=== PATIENT | male | born 1960 | race Caucasian/White ===

== ENCOUNTER 2023-04-28 12:29 | Outpatient (RCR) | payer MEDICARE, SELFPAY | END 2023-05-14 14:17 | disposition home or self-care (01) | LOC: ST 12:29 | DX: G20 Parkinson's disease (principal); R41.841 Cognitive communication deficit | CPT/HCPCS: 92507; 92523 ==

== ENCOUNTER 2023-04-28 12:30 | Outpatient (RCR) | payer MEDICARE, SELFPAY | END 2023-09-10 15:10 | disposition home or self-care (01) | LOC: PT 12:30 | DX: G20.A1 Parkinson's disease without dyskinesia, without mention of fluctuations (principal) | CPT/HCPCS: 97110; 97163; 97530 ==

== ENCOUNTER 2023-05-30 07:55 | Outpatient (RCR) | payer MEDICARE, SELFPAY ==
[2023-05-30 08:27] VITALS: BP 121/82; PULSE 64; RESP 16; TEMP 36.6; O2SAT 97
[2023-05-30] MEDS: CEFTAZIDIME 1,000 MG in 0.9 % SODIUM CHLORIDE 50 ML 50 MG IV (08:27)
[2023-05-30] MEDS: CEFTAZIDIME 1,000 MG in 0.9 % SODIUM CHLORIDE 50 ML 100 MG IV (20:23)
[2023-05-31] MEDS: CEFTAZIDIME 1,000 MG in 0.9 % SODIUM CHLORIDE 50 ML 100 MG IV (20:22)
[2023-05-31 20:23] VITALS: BP 103/78; PULSE 63; RESP 15; TEMP 36.6; O2SAT 97
== END 2023-06-18 23:59 | disposition home or self-care (01) ==
LOC: INF 07:55
PROVIDERS: PCP Family Medicine; Visit Provider Family Medicine
DX: N39.0 Urinary tract infection, site not specified (principal); B96.5 Pseudomonas (aeruginosa) (mallei) (pseudomallei) as the cause of diseases classified elsewhere
CPT/HCPCS: 96365; 96366

== ENCOUNTER 2023-06-01 20:00 | Outpatient (RCR) | payer MEDICARE, SELFPAY | END 2023-09-10 11:16 | disposition home or self-care (01) | LOC: OT 20:00 | DX: G20.A1 Parkinson's disease without dyskinesia, without mention of fluctuations (principal) | CPT/HCPCS: 97166; 97530 ==

== ENCOUNTER 2023-06-05 08:00 | Outpatient (RCR) | payer MEDICARE, SELFPAY ==
[2023-05-29 20:43] VITALS: BP 142/81; PULSE 60; RESP 16; TEMP 36.6; O2SAT 96
[2023-05-29] MEDS: CEFTAZIDIME 1,000 MG in 0.9 % SODIUM CHLORIDE 50 ML 100 MG IV (21:40)
[2023-05-29 22:50] VITALS: BP 164/88; PULSE 54; RESP 18; TEMP 37.1; O2SAT 95
[2023-05-31] MEDS: CEFTAZIDIME 1,000 MG in 0.9 % SODIUM CHLORIDE 50 ML 100 MG IV (08:13)
[2023-05-31 08:25] VITALS: BP 123/74; PULSE 65; RESP 18; TEMP 36.4; O2SAT 95
[2023-06-01 08:00] VITALS: BP 111/72; PULSE 66; RESP 14; TEMP 36.5; O2SAT 95
[2023-06-01] MEDS: CEFTAZIDIME 1,000 MG in 0.9 % SODIUM CHLORIDE 50 ML 5 MG IV (08:10)
--- NOTE | 2023-06-01 08:51 | PC.NURSE ---
0800 Arrived per electric wheelchair. Alert oriented no complaints offered. Saline lock intact left forearm #20 site clear, good blood return, flushes easily. IV antibiotics initiated. 0810 Tolerating infusion without difficulty. 0835 IV infusion complete, flushed line with NS, covered site for protection with coban. Released per electric wheelchair.
[2023-06-01] MEDS: CEFTAZIDIME 1,000 MG in 0.9 % SODIUM CHLORIDE 50 ML 100 MG IV (19:57)
[2023-06-01 20:02] VITALS: BP 135/83; PULSE 63; RESP 16; TEMP 36.5; O2SAT 96
[2023-06-02 08:06] VITALS: BP 120/77; PULSE 57; RESP 14; TEMP 35.6; O2SAT 98
[2023-06-02] MEDS: CEFTAZIDIME 1,000 MG in 0.9 % SODIUM CHLORIDE 50 ML 100 MG IV ×2 (08:14→20:08)
--- NOTE | 2023-06-02 08:50 | PC.NURSE ---
0800 Arrived per wheelchair. alert oriented. Saline lock intact site clear, flushes well, good blood return noted.0810 tolerating infusion without difficulty. 0845 infusion completed, tolerated well. flushed with NS, covered with coban released per wheelchair.
[2023-06-02 20:00] VITALS: BP 133/84; PULSE 62; RESP 18; TEMP 36.8; O2SAT 93
[2023-06-03 07:55] VITALS: BP 126/78; PULSE 64; RESP 18; TEMP 36.6; O2SAT 98
[2023-06-03] MEDS: CEFTAZIDIME 1,000 MG in 0.9 % SODIUM CHLORIDE 50 ML 100 MG IV ×2 (08:05→19:51)
--- NOTE | 2023-06-03 08:11 | PC.NURSE ---
0755: Pt. to [facility] via w/c per. self. VSS. Denies c/o n/v, pain or dyspnea. Pt. with existing IV to left forearm. No redness or edema to site. Flushes easily with good blood return. Pt. denies pain to site. IV Fortaz initiated as ordered. Pt. given coffee. Denies wanting to eat.
[2023-06-04 07:57] VITALS: BP 131/78; PULSE 70; RESP 18; TEMP 36.6; O2SAT 97
--- NOTE | 2023-06-04 07:57 | PC.NURSE ---
Pt. to [facility] via w/c per self. Vss. Denies c/o. Pt. with existing IV to left forearm. No redness or edema to site. Flushes easily with good blood return. Pt. denies pain to site. IV Fortaz initiated at this time. Pt. given coffee. Denies needs.
[2023-06-04] MEDS: CEFTAZIDIME 1,000 MG in 0.9 % SODIUM CHLORIDE 50 ML 100 MG IV ×2 (08:03→20:06)
--- NOTE | 2023-06-04 08:48 | PC.NURSE ---
0833: IV Fortaz completed without s&s of adverse reaction. IV flushed with saline & to SLF. Wrapped with Coban. Pt. tolerated without c/o. 0838: D/c'd via w/c to car and home with .
[2023-06-04 20:10] VITALS: BP 137/90; PULSE 57; RESP 18; TEMP 36.4; O2SAT 97
[2023-06-05 07:50] VITALS: BP 91/67; PULSE 73; RESP 18; TEMP 36.6; O2SAT 95
--- NOTE | 2023-06-05 07:50 | PC.NURSE ---
0750: Pt to [facility] via w/c for daily antibiotics. Pleasant. Denies c/o pain, n/v or dyspnea. Pt. with existing IV to left forearm. Flushes easily without s&s of infiltration or infection. VSS. 0800: IV Fortaz initiated. Pt. given breakfast. Denies needs. 0833: IV Fortaz completed without s&s of adverse reaction. IV d/c'd, pressure to site. 0837: Pt. d/c'd via w/c to home with .
[2023-06-05] MEDS: CEFTAZIDIME 1,000 MG in 0.9 % SODIUM CHLORIDE 50 ML 100 MG IV (08:00)
== END 2023-06-18 23:59 | disposition home or self-care (01) ==
LOC: INF 08:00
PROVIDERS: PCP Family Medicine; Visit Provider Urology
DX: N39.0 Urinary tract infection, site not specified (principal); B96.5 Pseudomonas (aeruginosa) (mallei) (pseudomallei) as the cause of diseases classified elsewhere
CPT/HCPCS: 87086; 87150; 87186; 96365; 96366

== ENCOUNTER 2023-07-06 07:43 | Outpatient (RCR) | payer OTHER, SELFPAY ==
[2023-06-30 13:14] LABS: Estimated GFR (African America >60 (>=60); Estimated GFR (Non-African Ame >60 (>=60)
--- NOTE | 2023-06-30 14:55 | PC.NURSE ---
1245: Pt. to [facility] via w/c per self. Pt. gives stated weight, called to pharmacy. VSS. Labs ordered per. pharmacy for kidney function. Pt. denies c/o pain, n/v or dyspnea. 1250: Pharmacy called and notified this RN pt. will need 4 injections due to volume of medication ordered. Suggests to be given IV. 1252: Dr. Ibarra office called. Informed of multiple injections needed daily. Order given to change route to IV. Pharmacy notified.
--- NOTE | 2023-06-30 15:09 | PC.NURSE ---
1336: IV Gentamycin initiated at this time. Pt. drinking coffee. Denies needs. 1406: IV Gent completed. IV to SLF. Pt. tolerated without c/o. IV site wrapped in coban dressing. Pt. d/c'd via w/c to home per self.
[2023-07-01 10:50] VITALS: BP 94/64; PULSE 69; RESP 18; TEMP 36.4; O2SAT 98
--- NOTE | 2023-07-01 11:29 | PC.NURSE ---
1050 arrived per electric wheelchair to chair 1. alert oriented. IV (SLF) intaact left forearm. site clear. 1120 Arrangements made for patient to come back at 7pm for random gent draw. Patient verbalizes understanding of orders.
--- NOTE | 2023-07-01 13:54 | PC.NURSE ---
1240 infusion completed. IV saline locked secured with coban. Released per wheelchair with instructions to return to ER at 1900 for lab draw.
--- NOTE | 2023-07-02 08:58 | PC.NURSE ---
0840 port flushed with NSS and heplock solution and deaccessed. patient tolerated procedure well, Site covered with 2x2 and tape, pressure applied for several minutes. no bleeding noted. Released ambualtory
--- NOTE | 2023-07-02 09:47 | PC.NURSE ---
misentry entered on wrong chart
[2023-07-02 11:20] VITALS: BP 142/93; PULSE 58; RESP 16; TEMP 36.4; O2SAT 98
--- NOTE | 2023-07-02 14:06 | PC.NURSE ---
1120 Arrived per electric w/c to chair 1. Pharmacy notified of patient arrival. Pharmacy calling to check on random gent level from 1900 on 07/01. 1140 Pharmacy called, will be giving normal dose today, none on 07/03, dosing on 07/04, none on 07/05 and last dose on 07/06. Patient aware of this schedule and reasoning. IV site stinging when flushing (left forearm IV site). Restarated on 1st attempt with #22 rt forearm, tolerated well. 1200 IV gentamycin initiated. 1230 Gentamycin infused, saline flushed IV site, secured with coban. released per electric wheel chair.
--- NOTE | 2023-07-04 11:54 | PC.NURSE ---
patient tolerated IV therapy well. Patient has no further questions. patient discharged at this time
[2023-07-06 11:05] VITALS: BP 123/74; PULSE 69; RESP 16; TEMP 35.9; O2SAT 96
--- NOTE | 2023-07-06 11:05 | PC.NURSE ---
1105: Pt. to [facility] via w/c per. self. VSS. Existing IV to right wrist red, hand swollen. Flushes with difficulty. IV d/c'd, pressure to site. #22 gauge IV initiated to left forearm on first attempt without difficulty. Flushes easily with good blood return. Pt. tolerated without c/o. 1128: IV Gentamycin initiated at this time. Pt. given coffee. Denies needs. 1158: IV Gentamycin completed. Pt. tolerated without c/o. IV d/c'd, pressure to site. Urine specimen obtained from catheter and sent to lab as ordered. 1205: Pt. d/c'd via w/c to car and home with .
== END 2023-07-18 23:59 | disposition home or self-care (01) ==
LOC: INF 07:43
PROVIDERS: PCP Family Medicine; Visit Provider Urology
DX: N39.0 Urinary tract infection, site not specified (principal); B96.5 Pseudomonas (aeruginosa) (mallei) (pseudomallei) as the cause of diseases classified elsewhere
CPT/HCPCS: 36415; 80170; 82565; 84520; 87086; 87150; 87186; 96360; 96365

== ENCOUNTER 2023-08-07 07:32 | Outpatient (RCR) | payer MEDICARE, SELFPAY ==
[2023-08-01] MEDS: CEFTAZIDIME 1,000 MG in 0.9 % SODIUM CHLORIDE 50 ML 100 MG IV ×2 (08:35→20:03)
--- NOTE | 2023-08-01 08:41 | PC.NURSE ---
0815- pt arrived in motorized scooter alone, IV started second attempt and infusing. Pt is alert and oriented, very social, provided with coffee during infusion.
--- NOTE | 2023-08-01 09:11 | PC.NURSE ---
infusion completed, IV flushed with NS and secured with Coban. Pt plans to return at 1999 for second infusion for the day. Departed in motorized wheel chair, called , she was meeting him at the entrance.
[2023-08-01 20:01] VITALS: BP 138/89; PULSE 60; RESP 16
[2023-08-02 08:08] VITALS: BP 128/85; TEMP 36.6
--- NOTE | 2023-08-02 08:08 | PC.NURSE ---
0800- pt arrived to unit in motorized scooter, alert and oriented.
[2023-08-02] MEDS: CEFTAZIDIME 1,000 MG in 0.9 % SODIUM CHLORIDE 50 ML 100 MG IV ×2 (08:14→20:10)
--- NOTE | 2023-08-02 08:47 | PC.NURSE ---
0850- IV infused, pt watching TV and drinking coffee. Departed on motorized wheel chair. is on her way for pickling solution maker.
[2023-08-02 12:00] VITALS: BP 145/91; PULSE 59; RESP 18; TEMP 36.6; O2SAT 99
[2023-08-02 20:45] VITALS: BP 131/86; PULSE 56; RESP 20; TEMP 36.8; O2SAT 99
--- NOTE | 2023-08-02 21:21 | PC.NURSE ---
Pt came to floor for out patient Abx admin, pre and post vitals recorded, pt left floor at 2044.
[2023-08-03] MEDS: CEFTAZIDIME 1,000 MG in 0.9 % SODIUM CHLORIDE 50 ML 100 MG IV ×2 (08:19→20:05)
[2023-08-03 09:09] VITALS: BP 122/79; PULSE 56; RESP 18; TEMP 36.1; O2SAT 94
--- NOTE | 2023-08-03 09:12 | PC.NURSE ---
0755: Pt. to [facility] via w/c per self. VSS. Pt. with existing IV to left forearm. Flushes easily. No s&s of infection or infiltration to site. Pt. without c/o. Given coffee, breakfast tray ordered. 0819: IV Fortaz initiated at this time as ordered. Breakfast provied. 0849: IV Fortaz completed without s&s of adverse reaction. IV to SLF. Wrapped in Coban dressing. 0850: Pt. d/c'd via w/c to home.
[2023-08-03 20:06] VITALS: BP 155/80; PULSE 88; RESP 20; TEMP 36.3; O2SAT 94
[2023-08-03 20:33] VITALS: BP 150/90; PULSE 82; RESP 20; TEMP 36.7; O2SAT 95
[2023-08-04 07:55] VITALS: BP 116/66; PULSE 61; RESP 16; TEMP 36.1; O2SAT 94
[2023-08-04] MEDS: CEFTAZIDIME 1,000 MG in 0.9 % SODIUM CHLORIDE 50 ML 100 MG IV ×2 (08:00→20:00)
--- NOTE | 2023-08-04 08:12 | PC.NURSE ---
0755: Pt. to [facility] via w/c for daily antibiotics. VSS. Existing IV intact to left forearm and without redness or edema. Flushes easily with no c/o pain. IV Fortaz initiated at this time. Pt. given coffee. Denies needs.
--- NOTE | 2023-08-04 08:30 | PC.NURSE ---
0830: IV Mauricio completed. IV to [facility]. Pt. without c/o. D/c'd via w/c to home.
[2023-08-04 20:00] VITALS: BP 162/85; PULSE 51; RESP 20; TEMP 37.3; O2SAT 95
[2023-08-04 20:30] VITALS: BP 165/95; PULSE 52; RESP 18; TEMP 37.1; O2SAT 94
[2023-08-05 07:53] VITALS: BP 167/76; PULSE 67; RESP 18; TEMP 36.4; O2SAT 94
[2023-08-05] MEDS: CEFTAZIDIME 1,000 MG in 0.9 % SODIUM CHLORIDE 50 ML 100 MG IV ×2 (08:15→19:56)
--- NOTE | 2023-08-05 08:50 | PC.NURSE ---
0750 arrival per w/c to chair 3. Saline lock intact left forarm, site clear no reddness edema, good blood return, flushes easily, vs obtained, suprapubic catheter draining cloudy light yellow urine with sediment. 0815 iv fortaz initiated over 30 mins. 0845 fortaz infused, iv line flushed. rewrapped with coban. released ambulatory
[2023-08-05 20:06] VITALS: BP 135/87; PULSE 68; RESP 16; TEMP 37.2; O2SAT 98
[2023-08-06] MEDS: CEFTAZIDIME 1,000 MG in 0.9 % SODIUM CHLORIDE 50 ML 100 MG IV ×2 (07:49→20:10)
[2023-08-06 08:42] VITALS: BP 131/83; PULSE 63; RESP 16; TEMP 35.8; O2SAT 92
--- NOTE | 2023-08-06 08:47 | PC.NURSE ---
0747: Pt. to [facility] via w/c for daily antibiiotic. VSS. Relays improvement in clarity of urine. Denies c/o pain, n/v, chills. Existing IV to left forearm in place and without s&s of infection or infiltration. Flushes easily without edema or c/o pain. IV Fortaz initiate as ordered. Pt. given coffee. 0819: IV Fortaz completed. Pt. without s&s of adverse reaction. IV to SLF. Wrapped in coban dressing. 0822: D/c'd via w/c to wifes car and to home.
[2023-08-06 20:18] VITALS: BP 170/95; PULSE 50; RESP 18; TEMP 36.6; O2SAT 95
[2023-08-07] MEDS: CEFTAZIDIME 1,000 MG in 0.9 % SODIUM CHLORIDE 50 ML 100 MG IV ×2 (08:13→19:59)
[2023-08-07 08:20] VITALS: BP 113/76; PULSE 68; RESP 18; TEMP 35.9; O2SAT 96
--- NOTE | 2023-08-07 08:24 | PC.NURSE ---
0753 Arrival per electric wheelchair to [facility] 3. Alert oriented. Saline lock intact left wrist, site clear, flushes easily with blood return. Vital signs obtained. Suprapubic catheter draining light yellow urine in bedside bag, with some sediment noted. Dr. Ibarra office notified regarding collecting urine culture post round of antibiotics, office stated Dr Ibarra does not want to culture urine, unless he is symptomatic, patient notified. 0805 Antiotic initiated. watches TV drinking coffee.
[2023-08-07 20:04] VITALS: BP 109/75; PULSE 80; RESP 20; TEMP 36.8; O2SAT 93
== END 2023-08-18 23:59 | disposition home or self-care (01) ==
LOC: INF 07:32
PROVIDERS: PCP Family Medicine; Visit Provider Urology
DX: N39.0 Urinary tract infection, site not specified (principal); B96.5 Pseudomonas (aeruginosa) (mallei) (pseudomallei) as the cause of diseases classified elsewhere
CPT/HCPCS: 96365

== ENCOUNTER 2023-08-14 11:59 | Outpatient (OUT) | payer OTHER, SELFPAY ==
--- NOTE | 2023-08-14 12:09 | XR_ITS ---
The [address] [address] Patient Name: ALISIA CORREA MRN: [id number] date: 1960 Sex: M Assigned Patient Location: [facility] Current Patient Location: [facility] Accession/Order Number: [id number] Exam Date: 08/14/2023 12:25 Report Date: 08/14/2023 13:20 At the request of: FIDEL WATSON Procedure: XR abdomen 1V EXAM: XR abdomen 1V HISTORY: History Of Kidney Stones COMPARISON: None. TECHNIQUE: AP view of the abdomen. FINDINGS: Nonobstructive bowel gas pattern is noted. There is no suspicious calcification. Bilateral hip replacement, posterior lumbar spinal fusion hardware, nerve stimulator. These may limit the evaluation of subtle calculus. XR/XR abdomen 1V IMPRESSION: Nonobstructive bowel gas pattern. No suspicious renal calcification. Electronically authenticated by: EAMON DEMARCO Date: 08/14/2023 13:20
== END 2023-08-14 12:00 | disposition home or self-care (01) ==
PROVIDERS: PCP Family Medicine; Visit Provider Urology
DX: Z87.442 Personal history of urinary calculi (principal)
CPT/HCPCS: 74018

== ENCOUNTER 2023-08-20 15:01 | Observation (INO) | payer MEDICARE, SELFPAY ==
[2023-08-20] VITALS (42 sets, daily range): BP systolic 87–157; BP diastolic 61–92; PULSE 53–88; RESP 5–25; TEMP 36.6–36.8; O2SAT 25–99; BMI 28.7; BMI 31.4
--- NOTE | 2023-08-20 15:24 | ECG_ITS ---
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
[2023-08-20 15:40] LABS: Basophils Percent Auto 0.4 % (0.2-2.0); Eosinophils Absolute Auto 0.4 10^3/uL (0.0-0.7); Eosinophils Percent Auto 5.9 % (0.9-7.0); Hematocrit 38.3 % (42.0-54.0); Hemoglobin 11.5 g/dL (14.0-18.0); Immature Granulocytes Abs Auto 0.02 10^3/uL (0.00-0.03); Immature Granulocytes Pct Auto 0.3 % (0.0-0.5); Lymphocytes Absolute Auto 1.9 10^3/uL (1.2-3.8); Lymphocytes Percent Auto 27.7 % (20.5-60.0); Mean Corpuscular Hemoglobin 27.8 pg (25.9-34.0); Mean Corpuscular Volume 92.5 fL (80.0-94.0); Mean Platelet Volume 13.6 fL (9.5-13.5); Monocytes Absolute Auto 0.6 10^3/uL (0.3-0.8); Monocytes Percent Auto 8.7 % (1.7-12.0); Neutrophils Absolute Auto 3.8 10^3/uL (1.4-6.5); Platelet Count 150 10^3/uL (150-450); Red Blood Count 4.14 10^6/uL (4.70-6.10); Red Cell Distribution Width 14.3 % (11.0-15.0); White Blood Count 6.8 10^3/uL (4.0-11.0)
[2023-08-20 15:41] LABS: Bilirubin Urine NEGATIVE (NEGATIVE); Blood Urine LARGE (NEGATIVE); Clarity Urine CLOUDY (CLEAR); Color Urine YELLOW (YELLOW); Glucose Urine UA NEGATIVE (NEGATIVE); Ketones Urine TRACE mg/dL (NEGATIVE); Leukocyte Esterase Urine MODERATE (NEGATIVE); Nitrite Urine NEGATIVE (NEGATIVE); Protein Urine 30 mg/dL (NEG/TRACE); Specific Gravity Urine >=1.030 (1.005-1.025); Urobilinogen Urine 0.2 EU/dL (0.2-1.0)
--- NOTE | 2023-08-20 15:43 | ED.GENADUL1 ---
HPI - General Adult General Chief complaint: Nausea/Vomiting/Diarrhea Stated complaint: poss flu, on antibiotics Time Seen by Provider: 08/20/23 15:03 Source: patient Mode of arrival: Wheelchair History of Present Illness HPI narrative: patient is a 62-year-old male with a history of Parkinson's disease, chronic indwelling suprapubic Ferro catheter who presents to the Emergency Room for weakness, diarrhea for the last two weeks. He has been receiving IV antibiotics as an outpatient for urinary tract infection up until two weeks ago. He states he developed diarrhea that is now loose and watery. He has mild abdominal discomfort. He states he has been feeling weak and dehydrated. He has had decreased oral intake. He changed his Ferro catheter urine bag prior to arrival, there is only a small amount of urine in the urine bag. He denies fevers. He states yesterday he was sitting in his wheelchair and thinks he may passed out with no falls or injuries to the floor. He has no complaints of chest pain. He is not able to ambulate well at baseline, uses a wheelchair for mobility. Related Data Home Medications Medication Instructions Recorded Confirmed acarbose 25 mg tablet 25 mg PO TID 08/20/23 08/20/23 atorvastatin 10 mg tablet 10 mg PO DAILY 08/20/23 08/20/23 benzonatate 100 mg capsule 100 mg PO DAILY 08/20/23 08/20/23 carbidopa 25 mg-levodopa 100 mg 2 tab PO DAILY 08/20/23 08/20/23 tablet diclofenac sodium 75 mg 75 mg PO BID 08/20/23 08/20/23 tablet,delayed release docusate sodium 100 mg capsule 100 mg PO DAILY 08/20/23 08/20/23 duloxetine 60 mg capsule,delayed 60 mg PO DAILY 08/20/23 08/20/23 release ezetimibe 10 mg tablet 10 mg PO DAILY 08/20/23 08/20/23 fludrocortisone 0.1 mg tablet 0.1 mg PO BID 08/20/23 08/20/23 midodrine 5 mg tablet 15 mg PO DAILY 08/20/23 08/20/23 montelukast 10 mg tablet 10 mg PO BID 08/20/23 08/20/23 ondansetron HCl 4 mg tablet 4 mg PO DAILY PRN nausea and 08/20/23 08/20/23 vomiting oxycodone 5 mg tablet 5 mg PO DAILY PRN pain 08/20/23 08/20/23 pregabalin 300 mg capsule 300 mg PO BID 08/20/23 08/20/23 tolterodine 4 mg capsule,extended 4 mg PO DAILY 08/20/23 08/20/23 release 24 hr topiramate 100 mg tablet 100 mg PO BID 08/20/23 08/20/23 Allergies Allergy/AdvReac Type Severity Reaction Status Date / Time moxifloxacin Allergy Intermediate Verified 05/29/23 21:53 celecoxib [From Celebrex] Allergy Mild Verified 05/29/23 21:53 clonazepam Allergy Severe Uncoded 05/29/23 21:53 levofloxacin Allergy Severe Uncoded 05/29/23 21:53 erythromycin Allergy Mild Uncoded 05/29/23 21:53 Review of Systems ROS Constitutional Denies: fever or chills Cardiovascular Denies: chest pain Respiratory Reports: shortness of breath; Denies: cough Gastrointestinal Reports: abdominal pain and diarrhea; Denies: nausea or vomiting Genitourinary Reports: decreased urine ouput; Denies: painful urination Musculoskeletal Denies: back pain Integumentary/Breast Denies: rash Neurological Denies: headache Endocrine Reports: excessive thirst PFSH PFSH Medical History (Updated 08/20/23 @ 17:23 by SHRAVAN Bowens) Asthma ?J45.909 - Unspecified asthma, uncomplicated (ICD-10) Barretts esophagus ?K22.70 - Rust's esophagus without dysplasia (ICD-10) Bladder infection, chronic ?N30.20 - Other chronic cystitis without hematuria (ICD-10) Bladder stones ?N21.0 - Calculus in bladder (ICD-10) COPD (chronic obstructive pulmonary disease) ?J44.9 - Chronic obstructive pulmonary disease, unspecified (ICD-10) COVID-19 ?U07.1 - COVID-19 (ICD-10) Enlarged prostate ?N40.0 - Benign prostatic hyperplasia without lower urinary tract symptoms (ICD-10) Esophageal cancer ?C15.9 - Malignant neoplasm of esophagus, unspecified (ICD-10) FH: bilateral hip replacements ?Z82.69 - Family history of other diseases of the musculoskeletal system and connective tissue (ICD-10) GERD without esophagitis ?K21.9 - Gastro-esophageal reflux disease without esophagitis (ICD-10) Hypotension ?I95.9 - Hypotension, unspecified (ICD-10) Kidney stones ?N20.0 - Calculus of kidney (ICD-10) 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, unspecified (ICD-10) Neurogenic bladder ?N31.9 - Neuromuscular dysfunction of bladder, unspecified (ICD-10) Neuropathy ?G62.9 - Polyneuropathy, unspecified (ICD-10) Pneumonia ?J18.9 - Pneumonia, unspecified organism (ICD-10) 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 - Malignant (primary) neoplasm, unspecified (ICD-10) Suprapubic catheter ?Z93.59 - Other cystostomy status (ICD-10) Tonsillectomy planned Type 2 diabetes mellitus ?E11.9 - Type 2 diabetes mellitus without complications (ICD-10) Weakness of both lower extremities ?R29.898 - Other symptoms and signs involving the musculoskeletal system (ICD-10) Surgical History (Updated 08/06/23 @ 08:15 by Jorge Contreras) H/O cystoscopy ?Z98.890 - Other specified postprocedural states (ICD-10) H/O gastric bypass ?Z98.84 - Bariatric surgery status (ICD-10) H/O hand surgery ?Z98.890 - Other specified postprocedural states (ICD-10) History of left knee replacement ?Z96.652 - Presence of left artificial knee joint (ICD-10) History of left shoulder replacement ?Z96.612 - Presence of left artificial shoulder joint (ICD-10) Previous back surgery ?Z98.890 - Other specified postprocedural states (ICD-10) S/P insertion of spinal cord stimulator ?Z96.89 - Presence of other specified functional implants (ICD-10) Status post right rotator cuff repair ?Z98.890 - Other specified postprocedural states (ICD-10) Social History Smoking status: Never smoker Exam Narrative Exam Narrative: Gen.: Awake, alert, in no distress Head: Normocephalic, atraumatic ENT: Moist mucous membranes Respiratory: No respiratory distress, lungs clear bilaterally Cardio: Regular rate and rhythm Gastrointestinal: Abdomen is soft, nondistended and nontender to palpation; suprapubic Ferro catheter in place to the lower abdomen Extremities: weakness to the lower extremities Psych: Normal mood and affect Neuro: No focal neuro deficit Skin: Warm, dry, intact Constitutional Vital Signs, click to edit/add: Last Vital Signs Temp 98.2 F 08/20/23 15:09 Pulse 59 L 08/20/23 17:00 Resp 12 08/20/23 17:00 BP 118/73 08/20/23 17:00 Pulse Ox 96 08/20/23 17:00 O2 Del Method Room Air 08/20/23 15:09 Course Vital Signs Vital signs: Vital Signs Temperature 98.2 F 08/20/23 15:09 Pulse Rate 71 08/20/23 15:09 Respiratory Rate 24 08/20/23 15:09 Blood Pressure 87/61 L 08/20/23 15:09 Pulse Oximetry 96 08/20/23 15:09 Oxygen Delivery Method Room Air 08/20/23 15:09 Temperature 98.2 F 08/20/23 15:09 Pulse Rate 59 L 08/20/23 17:00 Respiratory Rate 12 08/20/23 17:00 Blood Pressure 118/73 08/20/23 17:00 Pulse Oximetry 96 08/20/23 17:00 Oxygen Delivery Method Room Air 08/20/23 15:09 Medical Decision Making MDM Narrative Medical decision making narrative: patient treated with IV fluids with improvement of blood pressure. Labs show he is clinically dehydrated. Urine specimen shows urinary tract infection, but because the patient has a chronic indwelling suprapubic catheter, we will wait for culture to avoid additional antibiotic therapy as he may have C. difficile. We were unable to obtain a stool specimen from the patient in the Emergency Room as he is incontinent of stool and uses a depends. He did not produce any stool on the bedpan. CT shows no evidence of acute process. Patient will be admitted to rule out C. difficile, IV rehydration. He is stable at time of admission with improved blood pressure. Medical Records Medical records reviewed: Yes I reviewed the patient's medical records Lab Data Lab results reviewed: Yes I reviewed the patient's lab results Labs: Lab Results 08/20/23 Range/Units 15:30 WBC 6.8 (4.0-11.0) 10^3/uL RBC 4.14 L (4.70-6.10) 10^6/uL Hgb 11.5 L (14.0-18.0) g/dL Hct 38.3 L (42.0-54.0) % MCV 92.5 (80.0-94.0) fL MCH 27.8 (25.9-34.0) pg MCHC 30.0 (29.9-35.2) g/dL RDW 14.3 (11.0-15.0) % Plt Count 150 (150-450) 10^3/uL MPV 13.6 H (9.5-13.5) fL Neut % (Auto) 57.0 (43.0-75.0) % Lymph % (Auto) 27.7 (20.5-60.0) % [place] % (Auto) 8.7 (1.7-12.0) % Eos % (Auto) 5.9 (0.9-7.0) % Baso % (Auto) 0.4 (0.2-2.0) % Neut # (Auto) 3.8 (1.4-6.5) 10^3/uL Lymph # (Auto) 1.9 (1.2-3.8) 10^3/uL [place] # (Auto) 0.6 (0.3-0.8) 10^3/uL Eos # (Auto) 0.4 (0.0-0.7) 10^3/uL Baso # (Auto) 0.0 (0.0-0.1) 10^3/uL Abs Immat Gran (auto) 0.02 (0.00-0.03) 10^3/uL Imm/Tot Granulo (auto) 0.3 (0.0-0.5) % Sodium 139 (136-145) mmol/L Potassium 4.3 (3.5-5.1) mmol/L Chloride 105 (98-107) mmol/L Carbon Dioxide 24.4 (21.0-32.0) mmol/L Anion Gap 13.9 BUN 36.0 H (7.0-18.0) mg/dL Creatinine 1.81 H (0.70-1.30) mg/dL Est GFR ( Amer) 46 L (>=60) Est GFR (Non-Af Amer) 38 L (>=60) BUN/Creatinine Ratio 19.9 Glucose 94 (74-106) mg/dL Lactate 1.6 (0.4-2.0) mmol/L Calcium 8.6 (8.5-10.1) mg/dL Total Bilirubin 0.4 (0.2-1.0) mg/dL AST 8 L (15-37) U/L ALT 7 L (16-63) U/L Alkaline Phosphatase 70 (46-116) U/L Troponin I High Sens 7.4 (4.0-76.1) pg/mL Total Protein 6.2 L (6.4-8.2) g/dL Albumin 2.9 L (3.4-5.0) g/dL Globulin 3.3 g/dL Albumin/Globulin Ratio 0.9 Lipase 11.0 L (16.0-77.0) U/L Urine Color Yellow (YELLOW) Urine Clarity Cloudy A (CLEAR) Urine pH 5.0 (5.0-9.0) Ur Specific [place] >=1.030 A (1.005-1.025) Urine Protein 30 A (NEG/TRACE) mg/dL Urine Glucose (UA) Negative (NEGATIVE) mg/dL Urine Ketones Trace A (NEGATIVE) mg/dL Urine Occult Blood Large A (NEGATIVE) Urine Nitrite Negative (NEGATIVE) Urine Bilirubin Negative (NEGATIVE) Urine Urobilinogen 0.2 (0.2-1.0) EU/dL Ur Leukocyte Esterase Moderate A (NEGATIVE) Urine RBC 20-50 A (0-2) #/HPF Urine WBC >100 A (NONE SEEN) #/HPF Ur Squamous Epith Cells Few A (NONE/RARE) #/LPF Urine Crystals None seen (None Seen) #/HPF Urine Bacteria Moderate A (NONE SEEN) #/HPF Urine Casts None seen (NONE SEEN) #/LPF Urine Mucus None seen (NONE SEEN) Ur Culture Indicated? Yes Imaging Data CT scan - abdomen: Attestation: I have reviewed the pertinent imaging results. Radiologist's impression: Procedure: CT abdomen pelvis w con EXAM: CT abdomen pelvis w con; [id number] REASON FOR EXAM: Abdominal pain, diarrhea x 2 weeks TECHNIQUE: Helical CT images of the abdomen and pelvis were obtained after the administration of IV contrast. Multiplanar reformats were generated at the scanner. Dose reduction technique used: Automated exposure control and/or adjustment of the mA and/or kV according to patient size and/or use of iterative reconstruction technique. COMPARISON: CT abdomen/pelvis 12/18/2022. FINDINGS: Visualized Chest: Mild left basilar atelectatic consolidation, improved compared with 12/18/2022. Abdomen: Liver: Within normal limits. Gallbladder: No calcified gallstones. No acute inflammatory changes. Bile Ducts: No significant biliary ductal dilatation. Pancreas: No mass, ductal dilatation, or inflammatory changes. Spleen: No splenomegaly or focal lesion. Adrenals: No nodules. Kidneys: -No stones or hydronephrosis. -No mass. Vascular: No aortic aneurysm. Lymph Nodes: No adenopathy. Abdominal Wall: No hernia or mass. Pelvis: Suprapubic catheter terminates in the lumen of the bladder. 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 -No bowel obstruction or significant ileus. -No acute inflammatory changes. -No free air or free fluid. Musculoskeletal: No acute fracture or suspicious osseous lesion. Spinal cord stimulator present. IMPRESSION: Negative exam. No acute intra-abdominal abnormality or etiology for diarrhea demonstrated. Electronically authenticated by: CLARA THURMAN Date: 08/20/2023 17:17 ECG Data Attestation: I personally reviewed and interpreted this ECG as follows: (normal sinus rhythm at a rate of sixty-six, no acute ST elevation or ectopy. EKG reviewed by attending physician) Discharge Plan Discharge Chief Complaint: Nausea/Vomiting/Diarrhea Patient Disposition: Admitted as Observation Time of Disposition Decision: 17:23 Prescriptions / Home Meds: No Action carbidopa-levodopa 25-100 mg tablet 2 tab PO DAILY benzonatate 100 mg capsule 100 mg PO DAILY atorvastatin 10 mg tablet 10 mg PO DAILY acarbose 25 mg tablet 25 mg PO TID diclofenac sodium 75 mg tablet,delayed release (DR/EC) 75 mg PO BID montelukast 10 mg tablet 10 mg PO BID fludrocortisone 0.1 mg tablet 0.1 mg PO BID pregabalin 300 mg capsule 300 mg PO BID tolterodine 4 mg capsule,extended release 24hr 4 mg PO DAILY midodrine 5 mg tablet 15 mg PO DAILY topiramate 100 mg tablet 100 mg PO BID docusate sodium 100 mg capsule 100 mg PO DAILY duloxetine 60 mg capsule,delayed release(DR/EC) 60 mg PO DAILY ezetimibe 10 mg tablet 10 mg PO DAILY ondansetron HCl 4 mg tablet 4 mg PO DAILY PRN (Reason: nausea and vomiting) oxycodone 5 mg tablet 5 mg PO DAILY PRN (Reason: pain) Referrals: ELLEN ARIAS [Primary Care Provider] - 1 week
[2023-08-20 15:45] LABS: Urine Microscopic Indicated YES
[2023-08-20] MEDS: 0.9 % SODIUM CHLORIDE 1,000 ML 999 ML IV (15:47)
--- NOTE | 2023-08-20 15:48 | ECG_ITS ---
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
[2023-08-20 15:52] LABS: Bacteria Urine MODERATE #/HPF (NONE SEEN); RBC Urine 20-50 #/HPF (0-2); WBC Urine >100 #/HPF (NONE SEEN)
[2023-08-20 15:53] LABS: Cast Seen? NONE SEEN #/LPF (NONE SEEN); Crystals Seen? None Seen #/HPF (None Seen); Mucus Urine NONE SEEN (NONE SEEN); Squamous Epithelial Cell Urine FEW #/LPF (NONE/RARE); Urine Culture Indicated YES
[2023-08-20 15:55] LABS: Alanine Aminotransferase 7 U/L (16-63); Albumin Globulin Ratio 0.9; Albumin Level 2.9 g/dL (3.4-5.0); Alkaline Phosphatase 70 U/L (46-116); Anion Gap 13.9; Aspartate Amino Transferase 8 U/L (15-37); BUN Creatinine Ratio 19.9; Bilirubin Total 0.4 mg/dL (0.2-1.0); Calcium 8.6 mg/dL (8.5-10.1); Carbon Dioxide 24.4 mmol/L (21.0-32.0); Chloride 105 mmol/L (98-107); Estimated GFR (African America 46 (>=60); Estimated GFR (Non-African Ame 38 (>=60); Globulin 3.3 g/dL; Glucose 94 mg/dL (74-106); Potassium 4.3 mmol/L (3.5-5.1); Sodium 139 mmol/L (136-145); Total Protein 6.2 g/dL (6.4-8.2)
--- NOTE | 2023-08-20 15:56 | PC.NURSE ---
pt presents to ED. pt is brought in by his and is in his wheelchair. pt states that he has hx of parkinsons and 8 previous back surgeries. patient does have suprapubic catheter as well and was recently diagnosed with a uti and was on antibiotics. patient states that after being on the outpatient iv antibiotics a week ago he started having loose watery diarrhea and weakness. pt does have associated abdominal cramping as well. patient states that d/t his previous back surgeries he is incontinent of stool. patient states yesterday he passed out while in his wheel chair, did not fall or hit head. patient states that he has been going to rehab and has been getting up and around with a walker but this last week d/t weakness and diarrhea he has been using his wheelchair. urine sample collected and sent to lab.
[2023-08-20 15:57] LABS: Troponin I High Sensitivity 7.4 pg/mL (4.0-76.1)
[2023-08-20 15:58] LABS: Lactate/Lactic Acid 1.6 mmol/L (0.4-2.0)
--- NOTE | 2023-08-20 16:35 | CT_ITS ---
[address] [address] [place], [place] [address] Patient Name: ALISIA CORREA MRN: [id number] date: 1960 Sex: M Assigned Patient Location: ER Current Patient Location: Accession/Order Number: [id number] Exam Date: 08/20/2023 16:25 Report Date: 08/20/2023 17:17 At the request of: KANG WHITING Procedure: CT abdomen pelvis w con EXAM: CT abdomen pelvis w con; [id number] REASON FOR EXAM: Abdominal pain, diarrhea x 2 weeks TECHNIQUE: Helical CT images of the abdomen and pelvis were obtained after the administration of IV contrast. Multiplanar reformats were generated at the scanner. Dose reduction technique used: Automated exposure control and/or adjustment of the mA and/or kV according to patient size and/or use of iterative reconstruction technique. COMPARISON: CT abdomen/pelvis 12/18/2022. FINDINGS: Visualized Chest: Mild left basilar atelectatic consolidation, improved compared with 12/18/2022. Abdomen: Liver: Within normal limits. Gallbladder: No calcified gallstones. No acute inflammatory changes. Bile Ducts: No significant biliary ductal dilatation. Pancreas: No mass, ductal dilatation, or inflammatory changes. Spleen: No splenomegaly or focal lesion. Adrenals: No nodules. Kidneys: -No stones or hydronephrosis. -No mass. Vascular: No aortic aneurysm. Lymph Nodes: No adenopathy. Abdominal Wall: No hernia or mass. Pelvis: Suprapubic catheter terminates in the lumen of the bladder. 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 -No bowel obstruction or significant ileus. -No acute inflammatory changes. -No free air or free fluid. Musculoskeletal: No acute fracture or suspicious osseous lesion. Spinal cord stimulator present. CT/CT abdomen pelvis w con IMPRESSION: Negative exam. No acute intra-abdominal abnormality or etiology for diarrhea demonstrated. Electronically authenticated by: CLARA THURMAN Date: 08/20/2023 17:17
--- NOTE | 2023-08-20 20:56 | PC.NURSE ---
patient uses walker to walk short distances at home. But when tired or wore out, he uses the wheelchair. And uses the wheelchair when going out of the house.
[2023-08-20] MEDS: 0.9 % SODIUM CHLORIDE 1,000 ML 100 ML IV (22:27)
[2023-08-20 22:31] LABS: Glucometer 54 mg/dL (74-106)
[2023-08-20] MEDS: TOPIRAMATE 100 MG TABLET PO (22:36)
[2023-08-21 04:32] LABS: Basophils Percent Auto 0.4 % (0.2-2.0); Eosinophils Absolute Auto 0.3 10^3/uL (0.0-0.7); Eosinophils Percent Auto 5.9 % (0.9-7.0); Hemoglobin 11.1 g/dL (14.0-18.0); Lymphocytes Absolute Auto 1.9 10^3/uL (1.2-3.8); Lymphocytes Percent Auto 35.6 % (20.5-60.0); Mean Corpuscular Hemoglobin 27.5 pg (25.9-34.0); Mean Corpuscular Volume 91.8 fL (80.0-94.0); Mean Platelet Volume 13.6 fL (9.5-13.5); Monocytes Absolute Auto 0.7 10^3/uL (0.3-0.8); Monocytes Percent Auto 13.9 % (1.7-12.0); Neutrophils Absolute Auto 2.3 10^3/uL (1.4-6.5); Neutrophils Percent Auto 44.2 % (43.0-75.0); Platelet Count 112 10^3/uL (150-450); Red Blood Count 4.03 10^6/uL (4.70-6.10); Red Cell Distribution Width 14.2 % (11.0-15.0); White Blood Count 5.3 10^3/uL (4.0-11.0)
[2023-08-21 04:49] LABS: Alanine Aminotransferase 8 U/L (16-63); Albumin Globulin Ratio 0.9; Albumin Level 2.8 g/dL (3.4-5.0); Alkaline Phosphatase 66 U/L (46-116); Anion Gap 8.8; Aspartate Amino Transferase 11 U/L (15-37); BUN Creatinine Ratio 22.7; Bilirubin Total 0.4 mg/dL (0.2-1.0); Calcium 8.5 mg/dL (8.5-10.1); Carbon Dioxide 28.5 mmol/L (21.0-32.0); Chloride 105 mmol/L (98-107); Estimated GFR (African America >60 (>=60); Estimated GFR (Non-African Ame 51 (>=60); Globulin 3.2 g/dL; Glucose 67 mg/dL (74-106); Potassium 4.3 mmol/L (3.5-5.1); Sodium 138 mmol/L (136-145)
[2023-08-21 06:00] VITALS: BP 107/70; PULSE 61; RESP 18; TEMP 36.6; O2SAT 90
[2023-08-21 07:31] LABS: Glucometer 49 mg/dL (74-106)
[2023-08-21 08:02] LABS: Glucometer 48 mg/dL (74-106)
--- NOTE | 2023-08-21 08:08 | PC.NURSE ---
patient is alert and oriented, breakfast arrived at this time, assisted patient with setting up breakfast. patient able to feed self.
[2023-08-21] MEDS: 0.9 % SODIUM CHLORIDE 1,000 ML 100 ML IV ×2 (08:26→17:11)
[2023-08-21 08:31] LABS: Glucometer 91 mg/dL (74-106)
[2023-08-21] MEDS: BENZONATATE 100 MG CAPSULE PO (09:34)
[2023-08-21] MEDS: VENLAFAXINE HCL ER 75 MG CAPSULE PO (09:34)
[2023-08-21] MEDS: DICLOFENAC SODIUM 25 MG TABLET.DR 75 MG PO ×2 (09:35→22:20)
[2023-08-21] MEDS: PIPERACILLIN SODIUM/TAZOBACTAM 3.375 GM in 0.9 % SODIUM CHLORIDE 50 ML IV ×2 (09:35→17:13)
[2023-08-21] MEDS: DULOXETINE HCL 60 MG CAPSULE.DR PO (09:36)
[2023-08-21] MEDS: EZETIMIBE 10 MG TABLET PO (09:38)
[2023-08-21] MEDS: FLUDROCORTISONE ACETATE 0.1 MG TABLET PO ×2 (09:39→22:18)
[2023-08-21] MEDS: PREGABALIN 100 MG CAPSULE 300 MG PO ×2 (09:40→22:17)
[2023-08-21] MEDS: TOPIRAMATE 100 MG TABLET PO ×2 (09:46→22:16)
[2023-08-21] MEDS: CARBIDOPA/LEVODOPA 25 MG-100 MG TABLET 2 TAB PO (09:48)
[2023-08-21] MEDS: CARBIDOPA/LEVODOPA CR 25-100 MG TABLET 2 TAB PO (09:48)
[2023-08-21] MEDS: MIDODRINE HCL 5 MG TABLET 10 MG PO (09:48)
[2023-08-21 09:51] VITALS: BP 103/54; PULSE 70; RESP 18; TEMP 37; O2SAT 91
[2023-08-21 11:04] LABS: Glucometer 80 mg/dL (74-106)
--- NOTE | 2023-08-21 11:25 | PM.HP ---
H&P: HPI History of Present Illness Chief complaint: Diarrhea, weakness Narrative: 62 y/o male with history of Parkinson's and suprapubic catheter presents with weakness. C/o GI upset and diarrhea x 2 weeks. Decreased appetite but increased diarrhea. Nice weak and worried getting dehydrated. C/o discomfort and cramping in lower abdomen. Afebrile. Recently treated by urology with antibiotics for UTI. To ER and labs showed dehydration. WBC normal and CT abdomen negative. UA showed UTI and admitted. Started IV fluids and labs improved overnight. Afebrile. Started zosyn for UTI based on past 2 urine culture results. Feels better but still abdominal discomfort and cramping. Drinking well. Review of Systems ROS Constitutional Reports: fatigue; Denies: fever, chills or night sweats Cardiovascular Denies: chest pain, palpitations, edema or lightheadedness Respiratory Denies: shortness of breath, cough or wheezing Gastrointestinal Reports: abdominal pain, nausea and diarrhea; Denies: vomiting Genitourinary Denies: painful urination [facility] Medical History (Updated 08/21/23 @ 09:04 by Jose Alejandro House MD) Asthma ?J45.909 - Unspecified asthma, uncomplicated (ICD-10) Barretts esophagus ?K22.70 - Rust's esophagus without dysplasia (ICD-10) Bladder infection, chronic ?N30.20 - Other chronic cystitis without hematuria (ICD-10) Bladder stones ?N21.0 - Calculus in bladder (ICD-10) COVID-19 ?U07.1 - COVID-19 (ICD-10) Enlarged prostate ?N40.0 - Benign prostatic hyperplasia without lower urinary tract symptoms (ICD-10) Esophageal cancer ?C15.9 - Malignant neoplasm of esophagus, unspecified (ICD-10) FH: bilateral hip replacements ?Z82.69 - Family history of other diseases of the musculoskeletal system and connective tissue (ICD-10) GERD without esophagitis ?K21.9 - Gastro-esophageal reflux disease without esophagitis (ICD-10) Hypotension ?I95.9 - Hypotension, unspecified (ICD-10) Kidney stones ?N20.0 - Calculus of kidney (ICD-10) 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, unspecified (ICD-10) Neuropathy ?G62.9 - Polyneuropathy, unspecified (ICD-10) Pneumonia ?J18.9 - Pneumonia, unspecified organism (ICD-10) 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 - Malignant (primary) neoplasm, unspecified (ICD-10) Suprapubic catheter ?Z93.59 - Other cystostomy status (ICD-10) Tonsillectomy planned Weakness of both lower extremities ?R29.898 - Other symptoms and signs involving the musculoskeletal system (ICD-10) Surgical History (Updated 08/06/23 @ 08:15 by Jorge Contreras) H/O cystoscopy ?Z98.890 - Other specified postprocedural states (ICD-10) H/O gastric bypass ?Z98.84 - Bariatric surgery status (ICD-10) H/O hand surgery ?Z98.890 - Other specified postprocedural states (ICD-10) History of left knee replacement ?Z96.652 - Presence of left artificial knee joint (ICD-10) History of left shoulder replacement ?Z96.612 - Presence of left artificial shoulder joint (ICD-10) Previous back surgery ?Z98.890 - Other specified postprocedural states (ICD-10) S/P insertion of spinal cord stimulator ?Z96.89 - Presence of other specified functional implants (ICD-10) Status post right rotator cuff repair ?Z98.890 - Other specified postprocedural states (ICD-10) Family History (Updated 08/20/23 @ 20:33 by Barbara Mauro RN) Mother Family history of hypertension Family history of diabetes mellitus Family history of COPD (chronic obstructive pulmonary disease) Brother Family history of cancer Other Family history of CHF (congestive heart failure) Social History (Updated 08/20/23 @ 20:36 by Barbara Mauro RN) Within the past year, how often did you have a drink containing alcohol: never Within the past year, how often did you have six or more drinks on one occasion: never Score interpretation: A score less than 4 is consistent with normal alcohol consumption. Smoking status: Former smoker Highest level of school completed/degree received: some college, no degree Are you now , , , , never or living with a partner: In a typical week, how many times do you talk on the telephone with family, friends, or neighbors: 3 or more times per week How often do you get together with friends or relatives: 3 or more times per week Little interest or pleasure in doing things: several days Feeling down, depressed, or hopeless: several days Feel stressed/tense/nervous/anxious/difficulty sleeping: to some extent Do you think of yourself as: straight/heterosexual Gender Identity: male Meds Home Medications and Allergies Home Medications Medication Instructions Recorded Confirmed Type acarbose 25 mg tablet 25 mg PO TID 08/20/23 08/20/23 History atorvastatin 10 mg tablet 10 mg PO DAILY 08/20/23 08/20/23 History benzonatate 100 mg capsule 100 mg PO DAILY 08/20/23 08/20/23 History carbidopa 25 mg-levodopa 100 mg 2 tab PO BID 08/20/23 08/21/23 History tablet diclofenac sodium 75 mg 75 mg PO BID 08/20/23 08/20/23 History tablet,delayed release docusate sodium 100 mg capsule 100 mg PO DAILY 08/20/23 08/20/23 History duloxetine 60 mg capsule,delayed 60 mg PO DAILY 08/20/23 08/21/23 History release ezetimibe 10 mg tablet 10 mg PO DAILY 08/20/23 08/20/23 History fludrocortisone 0.1 mg tablet 0.2 mg PO .QD 08/20/23 08/21/23 History midodrine 5 mg tablet 15 mg PO DAILY 08/20/23 08/20/23 History montelukast 10 mg tablet 10 mg PO .QHS 08/20/23 08/21/23 History ondansetron HCl 4 mg tablet 4 mg PO DAILY PRN nausea and 08/20/23 08/20/23 History vomiting oxycodone 5 mg tablet 5 mg PO DAILY PRN pain 08/20/23 08/20/23 History pregabalin 300 mg capsule 300 mg PO BID 08/20/23 08/20/23 History tolterodine 4 mg capsule,extended 4 mg PO DAILY 08/20/23 08/20/23 History release 24 hr topiramate 100 mg tablet 100 mg PO BID 08/20/23 08/20/23 History carbidopa ER 25 mg-levodopa 100 mg 1 tab PO QID 08/21/23 08/21/23 History tablet,extended release potassium citrate 15 mEq (1,620 15 meq PO TID 08/21/23 08/21/23 History mg) tablet,extended release venlafaxine 75 mg capsule,extended 75 mg PO DAILY 08/21/23 08/21/23 History release 24 hr (Effexor XR) Allergies Allergy/AdvReac Type Severity Reaction Status Date / Time moxifloxacin Allergy Intermediate Verified 05/29/23 21:53 celecoxib [From Celebrex] Allergy Mild Verified 05/29/23 21:53 clonazepam Allergy Severe Uncoded 05/29/23 21:53 levofloxacin Allergy Severe Uncoded 05/29/23 21:53 erythromycin Allergy Mild Uncoded 05/29/23 21:53 Exam Constitutional Vital Signs, click to edit/add: Last Vital Signs Temp 98.6 F 08/21/23 09:51 Pulse 70 08/21/23 09:51 Resp 18 08/21/23 09:51 BP 103/54 08/21/23 09:51 Pulse Ox 91 L 08/21/23 09:51 O2 Del Method Room Air 08/21/23 09:51 Documenting provider has reviewed patient's vital signs: yes Common normals: no apparent distress, oriented x3 and alert HENMT Common normals: normocephalic Eye Common normals: PERRL and EOMs intact bilaterally Respiratory Common normals: normal respiratory effort and clear to auscultation bilaterally Cardio Common normals: regular rate, regular rhythm, no gallops, no murmurs and no rub GI Common normals: Normal to inspection, nondistended, normoactive bowel sounds present and soft to palpation Palpation: tender (Mild diffuse TTP) Details: suprapubic; no guarding Extremity Common normals: no pedal edema Results Labs Labs: Short CBC 08/20/23 08/21/23 Range/Units 15:30 04:14 WBC 6.8 5.3 (4.0-11.0) 10^3/uL Hgb 11.5 L 11.1 L (14.0-18.0) g/dL Hct 38.3 L 37.0 L (42.0-54.0) % Plt Count 150 112 L (150-450) 10^3/uL BMP 08/20/23 08/21/23 15:30 04:14 Sodium 139 138 Potassium 4.3 4.3 Chloride 105 105 Carbon Dioxide 24.4 28.5 BUN 36.0 H 32.0 H Creatinine 1.81 H 1.41 H Glucose 94 67 L Calcium 8.6 8.5 Liver Function 08/20/23 08/21/23 Range/Units 15:30 04:14 Total Bilirubin 0.4 0.4 (0.2-1.0) mg/dL AST 8 L 11 L (15-37) U/L ALT 7 L 8 L (16-63) U/L Alkaline Phosphatase 70 66 (46-116) U/L Albumin 2.9 L 2.8 L (3.4-5.0) g/dL Urine 08/20/23 Range/Units 15:30 Urine Color Yellow (YELLOW) Urine Clarity Cloudy A (CLEAR) Urine pH 5.0 (5.0-9.0) Ur Specific [place] >=1.030 A (1.005-1.025) Urine Protein 30 A (NEG/TRACE) mg/dL Urine Glucose (UA) Negative (NEGATIVE) mg/dL Imaging CT scan - abdomen: Attestation: I have reviewed the pertinent imaging results. 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 Diarrhea for several weeks and hold acrabose. Recent antibiotics and check GI panel. Continue zosyn and await sensitivity. Use levsin PRN. Start PT/OT. Resume home medication. Encourage PO intake. If improved possibly home in am.
--- NOTE | 2023-08-21 11:32 | CM.NOTE ---
Rounds made with Dr. House, pt continues with abdominal pain. Will obtain GI panel and continue IV fluids. Possible discharge tomorrow.
[2023-08-21 13:27] VITALS: BP 123/76; PULSE 63; RESP 16; TEMP 36.8; O2SAT 95
[2023-08-21] MEDS: CARBIDOPA/LEVODOPA CR 25-100 MG TABLET 1 TAB PO ×3 (13:32→22:16)
[2023-08-21] MEDS: CARBIDOPA/LEVODOPA 25 MG-100 MG TABLET 1 TAB PO ×2 (13:32→17:12)
[2023-08-21] MEDS: MIDODRINE HCL 5 MG TABLET PO (13:32)
--- NOTE | 2023-08-21 13:59 | SWNOTE1 ---
SW spoke with case management and pt and voiced they have everything they need at home.
[2023-08-21 16:05] LABS: Glucometer 83 mg/dL (74-106)
[2023-08-21] MEDS: ONDANSETRON PF 4 MG/2 ML VIAL IV (19:03)
[2023-08-21 21:01] VITALS: BP 145/90; PULSE 63; RESP 16; TEMP 36.9; O2SAT 94
[2023-08-21] MEDS: ATORVASTATIN CALCIUM 10 MG TABLET PO (22:19)
[2023-08-21] MEDS: MONTELUKAST SODIUM 10 MG TABLET PO (22:20)
[2023-08-21 22:25] LABS: Glucometer 80 mg/dL (74-106)
[2023-08-21] MEDS: OXYCODONE HCL 5 MG TABLET PO (22:27)
[2023-08-22] MEDS: PIPERACILLIN SODIUM/TAZOBACTAM 3.375 GM in 0.9 % SODIUM CHLORIDE 50 ML IV ×2 (02:00→10:47)
[2023-08-22] MEDS: CARBIDOPA/LEVODOPA CR 25-100 MG TABLET 1 TAB PO (02:00)
[2023-08-22] MEDS: 0.9 % SODIUM CHLORIDE 1,000 ML 100 ML IV (03:31)
[2023-08-22 05:19] LABS: Basophils Percent Auto 0.5 % (0.2-2.0); Eosinophils Absolute Auto 0.2 10^3/uL (0.0-0.7); Eosinophils Percent Auto 4.5 % (0.9-7.0); Hematocrit 33.7 % (42.0-54.0); Hemoglobin 10.3 g/dL (14.0-18.0); Immature Granulocytes Abs Auto 0.01 10^3/uL (0.00-0.03); Immature Granulocytes Pct Auto 0.3 % (0.0-0.5); Lymphocytes Absolute Auto 1.7 10^3/uL (1.2-3.8); Lymphocytes Percent Auto 45.7 % (20.5-60.0); Mean Corpuscular HGB Conc 30.6 g/dL (29.9-35.2); Mean Corpuscular Hemoglobin 27.5 pg (25.9-34.0); Mean Corpuscular Volume 89.9 fL (80.0-94.0); Mean Platelet Volume 14.1 fL (9.5-13.5); Monocytes Absolute Auto 0.4 10^3/uL (0.3-0.8); Neutrophils Absolute Auto 1.4 10^3/uL (1.4-6.5); Platelet Count 110 10^3/uL (150-450); Red Blood Count 3.75 10^6/uL (4.70-6.10); Red Cell Distribution Width 13.9 % (11.0-15.0); White Blood Count 3.7 10^3/uL (4.0-11.0)
[2023-08-22 05:39] LABS: Alanine Aminotransferase <6 U/L (16-63); Albumin Globulin Ratio 0.9; Albumin Level 2.6 g/dL (3.4-5.0); Alkaline Phosphatase 57 U/L (46-116); Anion Gap 9.4; Aspartate Amino Transferase 11 U/L (15-37); BUN Creatinine Ratio 19.4; Bilirubin Total 0.4 mg/dL (0.2-1.0); Calcium 8.4 mg/dL (8.5-10.1); Carbon Dioxide 25.8 mmol/L (21.0-32.0); Chloride 106 mmol/L (98-107); Estimated GFR (African America >60 (>=60); Estimated GFR (Non-African Ame 59 (>=60); Glucose 71 mg/dL (74-106); Potassium 4.2 mmol/L (3.5-5.1); Sodium 137 mmol/L (136-145); Total Protein 5.6 g/dL (6.4-8.2)
[2023-08-22] MEDS: CARBIDOPA/LEVODOPA CR 25-100 MG TABLET 2 TAB PO ×2 (05:55→10:50)
[2023-08-22] MEDS: CARBIDOPA/LEVODOPA 25 MG-100 MG TABLET 2 TAB PO ×2 (05:55→10:50)
[2023-08-22 05:59] VITALS: BP 108/73
[2023-08-22] MEDS: MIDODRINE HCL 5 MG TABLET 15 MG PO (05:59)
[2023-08-22 06:00] VITALS: BP 108/73; PULSE 57; RESP 16; TEMP 36.8; O2SAT 92
[2023-08-22] MEDS: EZETIMIBE 10 MG TABLET PO (08:25)
[2023-08-22] MEDS: VENLAFAXINE HCL ER 75 MG CAPSULE PO (08:25)
[2023-08-22] MEDS: DICLOFENAC SODIUM 25 MG TABLET.DR 75 MG PO (08:25)
[2023-08-22] MEDS: FLUDROCORTISONE ACETATE 0.1 MG TABLET PO (08:26)
[2023-08-22] MEDS: DULOXETINE HCL 60 MG CAPSULE.DR PO (08:26)
[2023-08-22] MEDS: TOPIRAMATE 100 MG TABLET PO (08:26)
[2023-08-22] MEDS: PREGABALIN 100 MG CAPSULE 300 MG PO (08:26)
[2023-08-22] MEDS: BENZONATATE 100 MG CAPSULE PO (08:26)
[2023-08-22] MEDS: MIDODRINE HCL 5 MG TABLET 10 MG PO (10:50)
--- NOTE | 2023-08-22 10:56 | PT.DAILY ---
Physical Therapy Daily Note PT Daily Note/Assess Start: 08/22/23 10:48 Freq: Status: Active Protocol: Document 08/22/23 10:48 MARGY (Rec: 08/22/23 10:56 MARGY [id number]) Physical Therapy Daily Note/Assessment Time In/Time Out Time In 08:40 Time Out 09:15 Pain In Pain N/A Pain Out Pain N/A Subjective Subjective Pt supine upon arrival. Agrees to PT. reports soreness in R shoulder and neck. Therapeutic Activity Time Therapeutic Activity Minutes (minutes) 25 Therapeutic Activity Units 2 Therapeutic Activity Treatment Bed Mobility Ability Moderate Assist Chair Transfer Ability Minimum Assist Therapeutic Activity Comments Supine>sit EOB ModA to advance upper body. Once sitting EOB pt able to maintain balance while sitting unsupported. Pt sits EOB 15 min while he washes upper body, changes gown, brushes teeth, and his back is washes and lotion applied to back. Pt also needs assistance to jose a new brief. Pt sit>stand to RW Yoel with increased time to complete and bed raised. Pt amb around bed to BS chair about 25' with RW, CGA and assist with IV pole - increased time needed for gait - very slow claire. Pt remains in BS chair upon completion with call light in reach and needs met. Total Physical Therapy Time Total Therapy Minutes 25 Total Physical Therapy Units 2 Summary Daily Note Summary Improving transfer/gait ability. Steady with gait but requires increased time. min increased pain in R shoulder with gait on this date.
--- NOTE | 2023-08-22 12:48 | P.DS_ITS ---
DS: Providers Provider Date of admission: 08/20/23 19:50 Primary care physician: ELLEN ARIAS Consults: 08/20/23 18:33 Occupational Therapy Eval and Treat Routine Reason for consultation: Weakness Physical Therapy Eval and Treat Routine Reason for consultation: Weakness Attending physician on discharge: Shaikh Abdi Discharging clinician: Shaikh Abdi Anticipated date of discharge: 08/22/23 DS: Diagnosis Discharge Diagnosis (1) UTI (urinary tract infection): Assessment and plan: Catheter associated UTI sec to Pseudomonas. He is allergic to Quinolones so he will need IV antibacterial to treat his UTI. Patient set up for outpatient IV gentamycin to treat his UTI. Qualifiers: Urinary tract infection type: catheter-associated UTI Indwelling urinary catheter type: cystostomy catheter Encounter type: subsequent encounter Qualified Code(s): T83.510D - Infection and inflammatory reaction due to cystostomy catheter, subsequent encounter; N39.0 - Urinary tract infection, site not specified (2) Acute kidney injury: Assessment and plan: Likely pre renal due to dehydration. Resolved with IV hydration (3) Diarrhea: Assessment and plan: Presumed viral Gastroenteritis. Resolved. Qualifiers: Diarrhea type: infectious Qualified Code(s): A09 - Infectious gastroenteritis and colitis, unspecified (4) Acute dehydration: Assessment and plan: Due to poor PO intake, diarrhea. Improved with IV hydration (5) Type 2 diabetes mellitus: Assessment and plan: C/w oral medications as before. Qualifiers: Diabetes mellitus long term acute care registered nurse insulin use: without nursing home use Diabetes mellitus complication status: without complication Qualified Code(s): E11.9 - Type 2 diabetes mellitus without complications (6) Generalized weakness: Assessment and plan: due to dehydration. Improved. (7) 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: Assessment and plan: Stable. C/w home meds. (8) Parkinson disease: Assessment and plan: Stable. DS: Summary Hospital Course Hospital Course: Patient presented with poor PO intake, large quantity of watery diarrhea daily for past one week. [place] weak, tired and dehydrated. He was admitted for acute kidney injury, dehydration from presumably viral gastroenteritis alongwith possible URI. His diarrhea resolved with supportive care. He is doing well and feels well. Tolerating PO diet. Still feels slightly nauseous. 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 His urine sample was concerning for UTI and was treated for presumed UTI with IV zosyn in the light of prior hx of Pseudomonas UTI. I suspect he likely has colonization and this did not represent a true UTI but considering his hx, positive urine culture- it is not unreasonable to treat him for it. Due to hx of allergy to Quinolones, he will need IV Gentamycin. X 3 days. He already received 2 days of abx therapy in the hospital. His diarrhea I suspect was of viral etiology. Resolved. Patient educated on worrisome signs and symptoms of UTI, Diarrhea, dehydration and to seek care if he developed those. F/u with PCP in one week. Status at Discharge Functional status at discharge: independent ambulation Overall status at discharge: patient is back to baseline Time Spent with Patient Time attestation: Total time spent providing and/or coordinating discharge services: Time spent: greater than 30 minutes Exam Constitutional Vital Signs, click to edit/add: Last Vital Signs Temp 98.2 F 08/22/23 06:00 Pulse 57 L 08/22/23 06:00 Resp 16 08/22/23 06:00 BP 108/73 08/22/23 06:00 Pulse Ox 92 L 08/22/23 06:00 O2 Del Method Room Air 08/22/23 06:00 Documenting provider has reviewed patient's vital signs: yes Common normals: no apparent distress and oriented x3 General appearance: cooperative HENMT Common normals: normocephalic and head/scalp atraumatic Head and scalp: normocephalic and atraumatic Eye Common normals: conjunctivae normal and no scleral icterus Conjunctiva: conjunctiva(e) normal Respiratory Common normals: normal respiratory effort and clear to auscultation bilaterally Effort & inspection: able to speak in complete sentences Auscultation: clear to auscultation bilaterally Cardio Common normals: regular rate, S1 normal heart sound and S2 normal heart sound Rate: regular rate Heart sounds: S1 normal and S2 normal GI Common normals: Normal to inspection, nondistended, normoactive bowel sounds present, soft to palpation, non-tender and no hepatosplenomegaly Palpation: soft and no hepatosplenomegaly Other: SP catheter in place Extremity Common normals: no clubbing, cyanosis or edema Neuro Common normals: oriented x3, moves all extremities and no focal motor deficits Psych Common normals: mental status grossly normal, denies hallucinations, denies homicidal ideation and denies suicidal ideation DS: Data Data Completed and Pending Labs on day of discharge: Labs from last 24 hours 08/22/23 08/21/23 08/21/23 04:14 22:23 16:05 WBC 3.7 L RBC 3.75 L Hgb 10.3 L Hct 33.7 L MCV 89.9 MCH 27.5 MCHC 30.6 RDW 13.9 Plt Count 110 L MPV 14.1 H Neut % (Auto) 38.0 L Lymph % (Auto) 45.7 Cotton % (Auto) 11.0 Eos % (Auto) 4.5 Baso % (Auto) 0.5 Neut # (Auto) 1.4 Lymph # (Auto) 1.7 Cotton # (Auto) 0.4 Eos # (Auto) 0.2 Baso # (Auto) 0.0 Abs Immat Gran (auto) 0.01 Imm/Tot Granulo (auto) 0.3 Sodium 137 Potassium 4.2 Chloride 106 Carbon Dioxide 25.8 Anion Gap 9.4 BUN 24.0 H Creatinine 1.24 Est GFR ( Amer) >60 Est GFR (Non-Af Amer) 59 L BUN/Creatinine Ratio 19.4 Glucose 71 L Calcium 8.4 L Total Bilirubin 0.4 AST 11 L ALT <6 L Alkaline Phosphatase 57 Total Protein 5.6 L Albumin 2.6 L Globulin 3.0 Albumin/Globulin Ratio 0.9 POC Glucose 80 83 Discharge Plan Discharge Disposition: Home, Self-Care Condition: Good Discharge Medications: New gentamicin in NaCl (iso-osm) 100 mg/100 mL piggyback 500 mg IV Q24H 3 Days Continued carbidopa-levodopa 25-100 mg tablet 2 tab PO BID Patient Comments: 2 TABS AT6AM AND 10 AM; 1 TAB AT 2PM AND 6 PM benzonatate 100 mg capsule 100 mg PO DAILY atorvastatin 10 mg tablet 10 mg PO DAILY acarbose 25 mg tablet 25 mg PO TID diclofenac sodium 75 mg tablet,delayed release (DR/EC) 75 mg PO BID montelukast 10 mg tablet 10 mg PO .QHS fludrocortisone 0.1 mg tablet 0.2 mg PO .QD pregabalin 300 mg capsule 300 mg PO BID tolterodine 4 mg capsule,extended release 24hr 4 mg PO DAILY midodrine 5 mg tablet 15 mg PO DAILY topiramate 100 mg tablet 100 mg PO BID docusate sodium 100 mg capsule 100 mg PO DAILY duloxetine 60 mg capsule,delayed release(DR/EC) 60 mg PO DAILY Patient Comments: TAKES WITH VENLAFAXINE BREE/DR Charlee ARIAS ezetimibe 10 mg tablet 10 mg PO DAILY ondansetron HCl 4 mg tablet 4 mg PO DAILY PRN (Reason: nausea and vomiting) oxycodone 5 mg tablet 5 mg PO DAILY PRN (Reason: pain) potassium citrate 15 mEq tablet extended release 15 meq PO TID carbidopa-levodopa 25-100 mg tablet extended release 1 tab PO QID venlafaxine [Effexor XR] 75 mg capsule,extended release 24hr 75 mg PO DAILY Patient Comments: TAKES WITH DULOXETINE PER BREE/DR Charlee ARIAS Activity: increase activity as tolerated Diet: advance to your usual diet Patient Instructions: Urinary Tract Infection in Men (ED) Forms: Portal Instructions Follow Up Appointments: Follow up with Dr. Cervantes in within 7 days [phone]
--- NOTE | 2023-08-24 15:19 | CM.DCFOLLOWU ---
First attempt at discharge follow up phone call today, no answer.
--- NOTE | 2023-08-25 14:30 | CM.DCFOLLOWU ---
Person spoke with: patient How are you feeling? good How is your pain? none Did you understand your discharge instructions? yes Do you have any questions about your discharge instructions? no Were you given any prescriptions at discharge? no Were you able to get your prescriptions filled? n/a Do you understand how to take your medications as ordered? yes Do you have any questions about your follow up appointment and do you plan to keep your follow up appointment? Pt. has not made follow up appointment with Dr. Cervantes, stated he will as soon as we get off of phone and voiced understanding of the importance of scheduling this appointment within 7 days of leaving hospital. Is there anything else that you would like to discuss? no Questions/Comments/Concerns/Other:
== END 2023-08-22 13:15 | disposition home or self-care (01) ==
LOC: ER 18:27 → MS 19:54
PROVIDERS: Family Medicine; Physician Assistant; Admitting Provider Internal Medicine; Emergency Provider Emergency Medicine; PCP Family Medicine; Visit Provider Internal Medicine
DX: T83.510A Infection and inflammatory reaction due to cystostomy catheter, initial encounter (principal); N17.9 Acute kidney failure, unspecified; N39.0 Urinary tract infection, site not specified; B96.5 Pseudomonas (aeruginosa) (mallei) (pseudomallei) as the cause of diseases classified elsewhere; R19.7 Diarrhea, unspecified; E86.0 Dehydration; R53.1 Weakness; J44.9 Chronic obstructive pulmonary disease, unspecified; G20.A1 Parkinson's disease without dyskinesia, without mention of fluctuations; I95.1 Orthostatic hypotension; E11.42 Type 2 diabetes mellitus with diabetic polyneuropathy; N31.9 Neuromuscular dysfunction of bladder, unspecified; Z79.899 Other long term (current) drug therapy; Z87.442 Personal history of urinary calculi; Z86.16 Personal history of COVID-19; N40.0 Benign prostatic hyperplasia without lower urinary tract symptoms; Z85.01 Personal history of malignant neoplasm of esophagus; Z96.643 Presence of artificial hip joint, bilateral; Z85.819 Personal history of malignant neoplasm of unspecified site of lip, oral cavity, and pharynx; Z87.01 Personal history of pneumonia (recurrent); Z98.84 Bariatric surgery status; Z98.890 Other specified postprocedural states; Z96.652 Presence of left artificial knee joint; Z96.612 Presence of left artificial shoulder joint; Z96.89 Presence of other specified functional implants; Z87.891 Personal history of nicotine dependence
CPT/HCPCS: 36415; 74177; 80053; 81001; 82948; 83605; 83690; 84484; 85025; 87086; 87186; 87507; 93005; 96361; 96365; 96366; 96375; 96376; 97161; 97165; 97530; 99285; G0378; Q9966

== ENCOUNTER 2023-08-23 08:55 | Outpatient (OUT) | payer MEDICARE, SELFPAY ==
[2023-08-23] MEDS: GENTAMICIN SULFATE 500 MG in 0.9 % SODIUM CHLORIDE 100 ML 225 MG IV (09:13)
== END 2023-08-23 10:31 | disposition home or self-care (01) ==
LOC: INF 08:57 → MS 09:00 → INF 10:52
PROVIDERS: PCP Family Medicine; Visit Provider Urology
DX: N39.0 Urinary tract infection, site not specified (principal); B96.5 Pseudomonas (aeruginosa) (mallei) (pseudomallei) as the cause of diseases classified elsewhere
CPT/HCPCS: 96365

== ENCOUNTER 2023-08-25 10:30 | Outpatient (RCR) | payer MEDICARE, SELFPAY ==
[2023-08-24] MEDS: GENTAMICIN SULFATE 500 MG in 0.9 % SODIUM CHLORIDE 100 ML 225 MG IV (10:40)
[2023-08-24 12:44] VITALS: BP 125/84; PULSE 60; RESP 16; TEMP 36.6; O2SAT 92
--- NOTE | 2023-08-24 12:46 | PC.NURSE ---
0955: Pt. to [facility] via w/c for daily antibiotics. VSS. Pt. with stool sample that pt. states was ordered when he was inpatient, but couldn't go. Sample sent to lab. Pt. with existing IV to left inner forearm. Site bruised and hard to touch. IV d/c'd, pressure to site. #2 gauge IV initiated to right outer ac on first attempt without difficulty. flushes easily with good blood return. Pt. tolerates without c/o. IV Gentamycin initiated at this time as ordered. Pt. given coffee. 111: IV Gentamycin complete without s&s of adverse reaction. IV flushed with saline. IV left in place. Site wrapped with coban dressing. 1117: Pt. d/c'd via w/c to car and home with .
[2023-08-25] MEDS: GENTAMICIN SULFATE 500 MG in 0.9 % SODIUM CHLORIDE 100 ML 225 MG IV (10:10)
[2023-08-25 10:23] VITALS: BP 113/70; PULSE 57; RESP 18; TEMP 35.9; O2SAT 95
--- NOTE | 2023-08-25 10:29 | PC.NURSE ---
0945: Pt. to [facility] via w/c for daily antibiotic. VSS. Existing SLF intact to right ac and without s&s of infiltration or infection. Flushes easily without edema or c/o pain. Pt. given coffee. 1010: IV Gentamycin initiated as ordered. Denies needs
--- NOTE | 2023-08-25 11:21 | PC.NURSE ---
1040: IV Gentamycin complete. IV d/c'd. Pt. tolerated all without c/o. Pt. d/c'd via w/c to car and home with .
== END 2023-09-17 23:59 | disposition home or self-care (01) ==
LOC: INF 10:30
PROVIDERS: PCP Family Medicine; Visit Provider Internal Medicine
DX: N39.0 Urinary tract infection, site not specified (principal); B96.5 Pseudomonas (aeruginosa) (mallei) (pseudomallei) as the cause of diseases classified elsewhere
CPT/HCPCS: 87045; 87046; 87338; 87427; 96365

== ENCOUNTER 2023-08-27 13:17 | Outpatient (REF) | payer MEDICARE, SELFPAY ==
[2023-08-27 15:39] LABS: Occult Blood Negative
[2023-08-27 15:41] LABS: C. Difficile PCR NEGATIVE (NEGATIVE)
[2023-08-31 13:08] LABS: Rotavirus Ag, EIA Negative (Negative)
[2023-09-07 16:09] LABS: Ova + Parasite Exam Final report (.)
== END 2023-08-27 13:18 | disposition home or self-care (01) ==
LOC: LAB 13:17
PROVIDERS: PCP Family Medicine; Visit Provider Family Medicine
DX: R19.7 Diarrhea, unspecified (principal); N39.0 Urinary tract infection, site not specified
CPT/HCPCS: 83631; 87045; 87046; 87177; 87209; 87425; 87427; 87493; 99999; G0328

== ENCOUNTER 2023-10-28 21:03 | Emergency (ER) | payer MEDICARE, OTHER, SELFPAY ==
--- OUTSIDE RECORDS SUMMARY | 2023-10-28 21:14 | XMS_ITS | CCD ---
Author Name Unknown Address [id number] [place] [address] Organization [facility] Care Team Providers Care [id number] Android Developer Name Role Phone RICCHETTI, SERGEY T Unavailable Unavailable RICCHETTI, SERGEY T Unavailable Unavailable RICCHETTI, SERGEY T Unavailable Unavailable RICCHETTI, SERGEY T Unavailable Unavailable ITALO BLAIRJIT Unavailable Unavailable NADEEN, SWATI M Unavailable Unavailable NADEEN, SWATI M Unavailable Unavailable LUISITO RIVERA Unavailable Unavailable UNKNOWN, PROVIDER Unavailable Unavailable UNKNOWN, PROVIDER Unavailable Unavailable SELF, REFERRED Unavailable Unavailable ELLEN CRABTREE Unavailable Unavailable Ellen Crabtree Unavailable Unavailable Unavailable Lashon Hamm Primary Care Physician Lashon Justin Unavailable Unavailable Lashon Hamm Primary Care Physician Ellen Kiran Primary Care Provider Ellen Crabtree DO Primary Care Provider Unavailab le AKSHAT, SELVON F Admitting Unavailable AKSHAT, SELVON F Attending Unavailable ELLEN CRABTREE Primary Care Unavailable EVELINA PARRA A Consulting Unavailable RANDA, SASIKALA T Consulting UnavailBALA Brito Consulting Unavailable TUCKER ROBBINS Consulting Unavailable AKSHAT, SELVON F Referring Unavailable ELLEN CRABTREE Primary Care Unavailable AKSHAT, SELVON F Referring Unavailable ELLEN CRABTREE Primary Care Unavailable Ellen Crabtree Unavailable Yifan Gama Unavailable Ellen Crabtree Primary Care Provider ELLEN CRABTREE Primary Care Unavailable SHALINI, KANG G Admitting Unavailable PB REDMOND Attending Unavailable SHALINI, KANG G Admitting Unavailable MELINDA NICK Attending Unavailable OUMOU ALONZO Referring Unavailable ELLEN CRABTREE Primary Care Unavailable ELLEN CRABTREE Primary Care Physician MIS, DR MYERS Consulting Unavailable MIS, DR MYERS Admitting Unavailable LEYDA, DR HUGHES Primary Care Unavailable MIS, DR MYERS Attending Unavailable TREVOR, DR DON Hinkle Consulting Unavailable LEYDA ., MICHELL Attending Unavailable LEYDA ., MICHELL Consulting Unavailable LEYDA ., MICHELL Admitting Unavailable LEYDA, DR HUGHES Primary Care Unavailable CHE PANDYA Consulting Unavailable IBARRA ., DR PARRA Admitting Unavailable KUNS, DR HUGHES Primary Care Unavailable IBARRA ., DR PARRA Attending Unavailable IBARRA ., DR PARRA Consulting Unavailable NEWATIA, SHARRON Consulting Unavailable IBARRA ., DR PARRA Admitting Unavailable KUNS, DR HUGHES Primary Care Unavailable IBARRA ., DR PARRA Attending Unavailable IBARRA ., DR PARRA Consulting Unavailable MOIZ JOSHUA Consulting Unavailable ELLI II, WICHO Consulting Unavailable HOY ., DR PEACE Attending Unavailable HOY ., DR PEACE Consulting Unavailable HOY ., DR PEACE Admitting Unavailable LEYDA, DR HUGHES Primary Care Unavailable VILLA RICA, DR LIZETH Momin Consulting Unavailable NADERER, DR KARLEY Crowe Consulting Unavailable CHRISTIAN, EN Consulting Unavailable DIAB ., MERCEDEZ Consulting Unavailable Steven Gonzales Admitting Unavailable Steven Gonzales Attending Unavailable Ellen Crabtree Primary Care Unavailable Kathleen Trujlilo Consulting Unavailable Aleshia Hooks Consulting Unavailable Rose Vincent Consulting Unavailable Chantell Parry Consulting Unavailable Denslow, Nellie Consulting Unavailable Mark Indira Consulting Unavailable DebbieKathy shannon Consulting Unavailable MassSandy mitchell Consulting Unavailable Huy, Momo K Consulting Unavailable Dials, Angela M Consulting Unavailable Tai Richardson Consulting Unavailable Harvey Pat Consulting Unavailable Skinny Jensen Consulting UnavailDavid Dominique Consulting Unavailable Jacinta Sorensen Consulting Unavailable Miryam Bell Consulting UnavailLamont Muro Consulting Unavailable Dyllan Rapp Consulting Unavailable Sophie Trujillo Consulting Unavailable Vandana Kerr Consulting Unavailable Romel Arevalo Consulting Unavailable Seffo, Emelina Consulting Unavailable Jaquelin, Enrico Consulting Unavailable Hazelwood, Elli Gomez Consulting Unavailable Doamedusty, Quintin Crum Consulting Unavailab sussy Tommy, Arvind Consulting Unavailable Landry, Gonsalo Consulting Unavailable Keiko Mckinney Consulting Unavailable Hector, Hamzah Hinkle Consulting Unavailable Miniaci, Uvaldo Navarro Consulting Unavailable Obika, Nicolasa Consulting Unavailable OrozcoVan shannon Consulting Unavailable Daromar, Obayanih M Consulting Unavailable Paradise Arias Consulting Unavailable Mohamed, Paula Lofton Consulting Unavailable Alahmad, Alaa Consulting Unavailable Tarango, Fidelia Consulting Unavailable Kuns, Ellen Admitting Unavailable Kuns, Ellen Attending Unavailable Kuns, Ellen Primary Care Unavailable BILL MACE Attending Unavailab le IBARRA, Fidel R Attending Unavailable IBARRA, Fidel R Attending Unavailable IBARRA, Fidel R Attending Unavailable IBARRA, Fidel R Attending Unavailable IBARRA, Fidel R Attending Unavailable IBARRA, Fidel R Attending Unavailable IBARRA, Fidel R Attending Unavailable IBARRA, Fidel R Admitting Unavailable IBARRA, Fidel R Attending Unavailable IBARRA, Fidel R Attending Unavailable IBARRA, Fidel R Attending Unavailable IBARRA, Fidel R Admitting Unavailable IBARRA, Fidel R Attending Unavailable IBARRA, Fidel R Attending Unavailable IBARRA, Fidel R Admitting Unavailable IBARRA, Fidel R Attending Unavailable IBARRA, Fidel R Admitting Unavailable IBARRA, Fidel R Attending Unavailable IBARRA, Fidel R Attending Unavailable IBARRA, Fidel R Attending Unavailable IBARRA, Fidel R Attending Unavailable IBARRA, Fidel R Attending Unavailable Allergies Allergy Classification Reported Allergen(s) Allergy Type Date of Onset Reaction(s) Facility (20 sources) celecoxib; Translations: [CELECOXIB] Drug Allergy 06-04-20 17 Rash, Hives, GI Upset, Weal (disorder) [facility] (20 sources) clonazePAM; Translations: [CLONAZEPAM] Drug Allergy 06-04-20 17 Itching, Shortness Of Breath, Dyspnea (finding) [facility] (20 sources) levoFLOXacin; Translations: [LEVOFLOXACIN] Drug Allergy 01-30-20 10 Hives, Shortness Of Breath, Dyspnea (finding) [facility] (9 sources) moxifloxacin; Translations: [MOXIFLOXACIN HCL] Drug Allergy 07-20-20 06 Rash, Hives, Itching, Shortness of Breath [facility] (11 sources) ERYTHROMYCIN BASE; Translations: [ERYTHROMYCIN BASE] Propensity to adverse reactions to drug (disorder) 03-06-20 04 Hives, Shortness of Breath [facility] (3 sources) celecoxib; Translations: [CeleBREX] Drug Allergy 06-25-20 12 [facility] Repository (1 source) erythromycin Drug Allergy 06-25-20 12 [facility] (20 sources) levoFLOXacin Drug Allergy 06-25-20 12 Unknown [facility] (3 sources) moxifloxacin; Translations: [Avelox] Drug Allergy 06-25-20 12 [facility] (5 sources) celecoxib; Translations: [[facility]BREX CAPS] [facility] (5 sources) clonazePAM; Translations: [KlonoPIN TABS] Drug Allergy [facility] 250 DO Work Phone: (5 sources) levoFLOXacin; Translations: [Levaquin] Drug Allergy [facility] 250 DO Work Phone: (20 sources) moxifloxacin; Translations: [Avelox] Drug Allergy 07-19-20 06 Hives, Shortness Of Breath, Dyspnea (finding), Eruption of skin (disorder), Itching (finding), Urticaria (disorder), Weal (disorder) [facility] (5 sources) Erythromycin Derivatives; Translations: [Erythromycin Derivatives] [facility] Work Phone: (2 sources) celecoxib; Translations: [Celebrex] Drug Allergy [facility] (3 sources) clonazePAM; Translations: [Klonopin] Drug Allergy [facility] Repository (20 sources) Erythromycin; Translations: [erythromycin] Drug Allergy 01-24-20 22 Itching, Nausea And Vomiting, Nausea (finding) [facility] Other (2 sources) levoFLOXacin; Translations: [Levaquin] Drug Allergy [facility] (2 sources) moxifloxacin; Translations: [Avelox] Drug Allergy [facility] (4 sources) pimavanserin; Translations: [PIMAVANSERIN] Drug Allergy 08-23-20 [facility] (2 sources) moxifloxacin; Translations: [moxifloxacin] Drug Allergy 07-19-20 06 [facility] Repository Medications Current Medications Medication Drug Class(es) Dates Sig (Normalized) Sig (Original) acarbose 25 mg oral tablet (20 sources) alpha-Glucosidase Inhibitor Start: 02-07-2022 take 25 mg by mouth three times daily at mealtime 25 mg, Oral, 3 TIMES DAILY WITH MEALS, First dose on Thu02/07/22 at 1700, Until Discontinued Start: 01-13-2019 acarbose 25 mg oral tablet Refills(s) 0 Start Date: 01/16/23 Status: Ordered Start: 12-29-2007 End: 12-06-2022 acarbose(PRECOSE 25 MG TAB) Indications: Hypoglycemia, unspecified , Obesity, unspecified Take one(1) tablet three(3) times daily. 1 month supply 3 12/29/2007 12/06/2022 Discontinued Comment on above: Take one(1) tablet t hree(3) times daily. acetaminophen 325 mg / oxyCODONE hydrochloride 5 mg oral tablet (2 sources) Opioid Agonist Start: 2 End: 2 take 1 tablet by mouth every six hours as needed for pain oxyCODONE-acetaminoph en (PERCOCET) 5-325 MG per tablet Indications: Lumbar stenosis with neurogenic claudication Take 1 tablet by mouth every 6 hours as needed for Pain for up to 7 days. 28 tablet 0 02/13/2022 02/20/2022 Active Start: 02-07-2022 oxyCODONE-acet aminophen (PERCOCET) 5-325 MG per tablet 1 tablet amoxicillin 875 mg / clavulanate 125 mg oral tablet (1 source) Penicillin-class Antibacterial Start: 01-20-2023 take 1 tablet by mouth once daily Augmentin 875 mg oral tablet = 1 tab(s), Oral, Daily, # 30 tab(s), Refills(s) 0, Pharmacy: [facility], 175, cm, 01/16/23 10:13:00 EDT, Height/Length Dosing, 92, kg, 01/16/23 10:13:00 EDT, Weight Dosing Start Date: 01/20/23 Status: Ordered atorvastatin 10 mg oral tablet (20 sources) HMG-CoA Reductase Inhibitor Start: 01-16-2023 atorvastatin 10 mg Tab Refills(s) 0 Start Date: 01/16/23 Status: Ordered Start: 09-17-2017 End: 12-06-2022 take 1 tablet by mouth every twenty-four hours Atorvastatin Calcium 10 MG 1 tablet Orally Once a day for 90 days Aug, Active Comment on above: Take 10 mg by mouth once daily. benzonatate 100 mg oral capsule (20 sources) Non-narcotic Antitussive Start: 12-06-2022 benzonatate 100 mg Cap Refills(s) 0 Start Date: 01/16/23 Status: Ordered Comment on above: Take 1 capsule by mo [facility] three times daily as needed for cough. carbidopa 25 mg / levodopa 100 mg extended release oral tablet (20 sources) Aromatic Amino Acid Decarboxylation Inhibitor, Aromatic Amino Acid Start: 01-16-2023 carbidopa-levodopa 25 mg-100 mg ER Tab Refill(s) 0 Start Date: 01/16/23 Status: Ordered Start: 11-04-2022 take 2 tablets by mo ut once in the morning, then take 2 tablets by mouth in the morning, then take 1 tablet by mouth in the evening, then take 6 tablets by mouth in the evening, then take 10 tablets by mouth in the evening, then take 2 tablets by mouth in the morning carbidopa-levodopa CR (SINEMET CR) 25-100 mg per tablet Take 2 tablets by mouth at 6 am, 2 tablets at 10 am, and 1 tablet at 2 pm, 6 pm, 10 pm and 2 am. 0 11/04/2022 Active Start: 02-13-2022 carbidopa-levo dopa (SINEMET) 25-100 MG per tablet 2 tablet Start: 02-07-2022 carbidopa-levo dopa (SINEMET CR) 25-100 MG per extended release tablet 1 tablet Start: 07-28-2019 take 1.5 tablets by mouth four times daily carbidopa-levodopa (SINEMET) 25-100 mg per tablet Indications: PD (Parkinson's disease) ([facility]) Take 1.5 tablets by mouth four times daily. 540 tablet 1 07/28/2019 Active Carbidopa-Levodo pa 25-100 MG 2 tabs @ 6am, 2 tabs @ 10am, 1 tab @ 2 pm, 1 tab @6pm Oral as directed do not eat an hour prior or after taking Active take 2 tablets by mo ut in the morning, then take 2 tablets by mouth in the morning, then take 1 tablet by mouth in the evening, then take 1 tablet by mouth in the evening Carbidopa-Levodopa 25-100 MG Oral Tablet 2 tablets @ 6 AM, 2 tablets @ 10 am, 1 tab let @ 2 pm, 1 tablt @ 6 pm Quantity: 0 Refills: 0 Ordered: 16-Aug-2021 DO Active carbidopa 10 mg- levodopa 100 mg tablet unsure of dose Comment on above: Take 1.5 tablets by mouth four times daily. Take 2 tablets by mo [facility] at 6 am, 2 tablets at 10 am, and 1 tablet at 2 pm, 6 pm, 10 pm and 2 am. cefdinir 300 mg oral capsule (10 sources) Cephalosporin Antibacterial Start: 06-11-2023 End: 06-21-2023 take 1 capsule by mouth every twelve hours cefdinir 300 mg Cap 300 mg = 1 cap(s), Oral, q12hr, X 10 day(s), # 20 cap(s), Refills(s) 0, Pharmacy: [facility], 175, cm, 03/20/23 9:07:00 EDT, Height/Length Dosing, 92, kg, 03/20/23 9:07:00 EDT, Weight Dosing Start Date: 06/11/23 Stop Date: 06/21/23 Status: Ordered take 1 capsule by mo [facility] every twelve hours Cefdinir 300 MG 1 capsule Orally bid Active compression stockings (20 sources) Start: 08-06-[address] [facility] 20-30 mmhg knee high wear daily Jul, Active Start: 08-06-[address] [facility] 20-30 mmhg knee high wear daily for 90 days Jul, Active CPAP Machine (20 sources) CPAP Machine Act av cyclobenzaprine hydrochloride 10 mg oral tablet (2 sources) Muscle Relaxant Start: End: take 1 tablet by mouth three times daily as needed for muscle spasms cyclobenzaprine (FLEXERIL) 10 MG tablet Take 1 tablet by mouth 3 times daily as needed for Muscle spasms 30 tablet 0 02/13/2022 02/23/2022 Active diclofenac sodium 75 mg delayed release oral tablet (20 sources) Nonsteroidal Anti-inflammatory Drug Start: take 1 mg by mouth twice daily diclofenac sodium 75 mg Oral EC Tab mg tab(s), Oral, BID, Refills(s) 0 Start Date: 01/16/23 Status: Ordered Start: 07-21-2019 End: 12-06-2022 take 1 tablet by mouth every twelve hours Diclofenac Sodium 75 MG 1 tablet with food or milk Orally Twice a day for 90 days Jul, Active diclofenac sodiu m oral Comment on above: diclofenac sodium 75 mg tablet,delayed release Take 1 tablet twice a day by oral route for 90 days. doxycycline hyclate 100 mg oral capsule (2 sources) Tetracycline-class Drug Start: 05-25-20 End: 06-04-20 take 1 capsule by mouth twice daily doxycycline hyclate 100 mg Cap 100 mg = 1 cap(s), Oral, BID, X 10 day(s), # 20 cap(s), Refills(s) 0, Pharmacy: [facility], 175, cm, 03/20/23 9:07:00 EDT, Height/Length Dosing, 92, kg, 03/20/23 9:07:00 EDT, Weight Dosing Start Date: 05/25/23 Stop Date: 06/04/23 Status: Ordered DULoxetine 60 mg delayed release oral capsule (20 sources) Serotonin and Norepinephrine Reuptake Inhibitor Start: 04-28-20 duloxetine 60 mg oral delayed release capsule Refills(s) 0 Start Date: 01/16/23 Status: Ordered take 1 capsule by mouth twice da giuliano Cymbalta 20 mg capsule,delayed release take 1 capsule (20 mg) by oral route 2 times per day unsure of dose Comment on above: Take 1 capsule by [facility] once daily. ezetimibe 10 mg oral tablet (20 sources) Dietary Cholesterol Absorption Inhibitor Start: 01-16-2023 ezetimibe 10 mg Tab Refills(s) 0 Start Date: 01/16/23 Status: Ordered Start: 09-17-2017 End: 12-06-2022 take 1 tablet by mouth every twenty-four hours Zetia 10 MG 1 tablet Orally Once a day for 90 days Aug, Active Comment on above: Take 10 mg by mouth once daily. fludrocortisone acetate 0.1 mg oral tablet (20 sources) Start: 12-06-2022 fludrocortisone 0.1 mg Tab Refills(s) 0 Start Date: 01/16/23 Status: Ordered take 2 tablets by mo [facility] every twenty-four hours Fludrocortisone Acetate 0.1 MG 2 tablet Orally Once a day Active Comment on above: Take 1 tablet by [facility] once daily. fluticasone propionate 0.05 mg/actuat metered dose nasal spray (5 sources) Corticosteroid Start: take 1 spray(s) nasal route once daily Fluticasone Propionate 50 MCG/ACT 1 spray in each nostril Nasally Once a day for 30 days Aug, Active Start: 09-02-2023 take 1 spray(s) nasa l route once daily Fluticasone Propionate 50 MCG/ACT 1 spray in each nostril Nasally Once a day for 30 days Aug, Active glucagon (rdna) 1 mg injection (1 source) Antihypoglycemic Agent Start: 02-11-2022 glucago n (rDNA) injection 1 mg 1000 ml glucose 100 mg/ml injection (3 sources) Start: 02-11-2022 dextrose bolus (hypoglycemia) 10% 125 mL Start: 02-11-2022 glucose chewab le tablet 16 g Start: 02-11-2022 dextrose 5 % s olution HYDROmorphone hydrochloride 2 mg oral tablet (17 sources) Opioid Agonist Start: 01-16-2023 hydromorphone 2 mg Tab Refills(s) 0 Start Date: 01/16/23 Status: Ordered Start: 12-06-2022 End: 12-13-2022 take 1 tablet by mouth every four hours as needed HYDROmorphone (DILAUDID) 2 mg tablet Indications: Spinal stenosis of lumbar region, unspecified whether neurogenic claudication present Take 1 tablet by mouth every 4 hours as needed for up to 7 days. 42 tablet 0 12/06/2022 12/13/2022 Active Start: 02-07-2022 End: 02-07-2022 HYDROmorphone (DILAUDID) inj ection 0.5 mg take 1 tablet by brendan th every six hours HYDROmorphone HCl 2 MG 1 tablet as needed Orally every 6 hrs per hospice Active Comment on above: Take 1 tablet by brendan th every 4 hours as needed for up to 7 days. insulin lispro 100 unt/ml injectable solution (2 sources) Insulin Analog Start : 02-07 insulin lispro (HUMALOG) injection vial 0-3 Units lidocaine 0.04 mg/mg medicated patch (13 sources) Antiarrhythmic, Amide Local Anesthetic apply 1 dose transdermal route once daily as needed Lidocaine 4 % 1 patch as needed Externally Once a day Active methylPREDNISolone 4 mg oral tablet (5 sources) Corticosteroid Start : 09-02 methylPREDNISolone 4 MG as directed Orally as directed Aug, Active midodrine hydrochloride 5 mg oral tablet (20 sources) alpha-Adrenergic Agonist Start : 01-16 midodrine 5 mg Tab Refills(s) 0 Start Date: 01/16/23 Status: Ordered Start: 12-06-2022 take 1 tablet by brendan th once daily midodrine (PROAMATINE) 10 mg tablet Take 1 tablet by mouth once daily. Take daily at 2:00pm 7 tablet 0 12/06/2022 Active Start: 12-06-2022 take 3 tablets by mo [facility] once daily midodrine (PROAMITINE) 5 mg tablet Take 3 tablets by mouth once daily. Take at 7:00am 21 tablet 0 12/06/2022 Active Start: 04-03-2022 take 1 tablet by brendan th three times daily Midodrine HCl - 5 MG Oral Tablet TAKE 1 TABLET 3 TIMES DAILY. Quantity: 270 Refills: 3 Ordered: 03-Apr-2022 Ren Watson MD Start : 03-Apr-2022 Active Start: 02-10-2022 midodrine (PRO AMATINE) tablet 15 mg Start: 02-09-2022 End: 02-10-2022 midodrine (PROAMATINE) table t 10 mg Start: 02-09-2022 End: 04-24-2022 midodrine (PROAMATINE) table t 7.5 mg Start: 02-08-2022 End: 02-09-2022 midodrine (PROAMATINE) table t 5 mg Start: 02-07-2022 End: 02-08-2022 5 mg, Oral, 2 TIMES DAILY, F irst dose on Thu02/07/22 at 2100, Until Discontinued Do not give after 1800 or within 4 hrs of bedtime. Start: 08-16-2021 take 1 tablet by brendan th twice daily Midodrine HCl - 5 MG Oral Tablet Take 1 tablet twice daily Quantity: 180 Refills: 3 Ordered: 16-Aug-2021 Ren Watson MD Start : 16-Aug-2021 Active dose increased Midodrine HCl 5 MG 15 mg q am, 10 mg afternoon, 10mg evening Orally tid 15 mg Active take 15 mg by mouth three times daily Midodrine HCl 5 MG 15 mg Orally tid 15 mg Active take 3 tablets by mo [facility] every twelve hours Midodrine HCl 5 MG 3 tablet Orally BID 15 mg Active midodrine 2.5 mg tablet unsure of dose Comment on above: Take 5 mg by mouth t wice daily. Take 3 tablets by mo [facility] once daily. Take at 7:00am Take 1 tablet by brendan once daily. Take daily at 2:00pm Take 1 tablet by brendan once daily. Take daily at 8:00pm Minerin Creme - (13 sources) Minerin Creme - as directed Externally Active montelukast 10 mg oral tablet (20 sources) Leukotriene Receptor Antagonist Start: 12-06-19 montelukast 10 mg Tab Refills(s) 0 Start Date: 01/16/23 Status: Ordered Comment on above: Take 1 tablet by brendan once daily. 1 ml morphine sulfate 2 mg/ml cartridge (1 source) Opioid Agonist Start: 02-08-20 morphine (PF) injection 2 mg Needle (Disp) 26G X 5/8 (14 sources) Start: 02-24-20 Needle (Disp) 26G X 5/8 as directed subq as directed February, Active nitrofurantoin, macrocrystals 25 mg / nitrofurantoin, monohydrate 75 mg oral capsule (5 sources) Nitrofuran Antibacterial Start: 07-22-20 take 1 capsule by mouth twice daily Macrobid 100 mg Cap 100 mg = 1 cap(s), Oral, BID, # 5 cap(s), Refills(s) 0, Pharmacy: [facility], 175, cm, 03/20/23 9:07:00 EDT, Height/Length Dosing, 92, kg, 03/20/23 9:07:00 EDT, Weight Dosing Start Date: 07/22/23 Status: Ordered Start: 06-11-2023 End: 06-21-2023 take 1 capsule by mouth twice daily Macrobid 100 mg Cap 100 mg = 1 cap(s), Oral, BID, X 10 day(s), # 20 cap(s), Refills(s) 0, Pharmacy: [facility], 175, cm, 03/20/23 9:07:00 EDT, Height/Length Dosing, 92, kg, 03/20/23 9:07:00 EDT, Weight Dosing Start Date: 06/11/23 Stop Date: 06/21/23 Status: Ordered nystatin 100 unt/mg topical powder (13 sources) Polyene Antifungal Nystatin 1000 00 UNIT/GM 1 application Externally Twice a day Active ondansetron 4 mg oral tablet (20 sources) Serotonin-3 Receptor Antagonist Start: 01-16-2023 ondansetron 4 mg Tab Refills(s) 0 Start Date: 01/16/23 Status: Ordered Start: 12-06-2022 take 1 tablet by brendan th every eight hours as needed ondansetron (ZOFRAN) 4 mg tablet Take 1 tablet by mouth every 8 hours as needed for nausea/vomiting. 21 tablet 0 12/06/2022 Active Start: 04-08-2018 take 2 tablets by mo uth every six hours as needed Zofran 4 MG 2 tablets Orally every 6 hours prn PRN Mar, Active Start: 12-29-2017 End: 11-20-2022 take 1 tablet by mouth every eight hours as needed ondansetron (ZOFRAN, HYDROCHLORIDE,) 4 mg tablet Indications: Rotator cuff syndrome of shoulder and allied disorders, unspecified laterality Take 1 tablet by mouth every 8 hours as needed. 10 tablet 0 12/29/2017 11/20/2022 Discontinued ondansetron 4 mg disintegrating tablet unsure of dose Comment on above: Take 1 tablet by brendan th every 8 hours as needed. Take 1 tablet by brendan every 8 hours as needed for nausea/vomiting. ondansetron (ZOFRAN-ODT) disintegrating tablet 4 mg (1 source) Start: 2 ondansetron (ZOFRAN-ODT) disintegrating tablet 4 mg oxyCODONE hydrochloride 5 mg oral tablet (2 sources) Opioid Agonist take 1 tablet by mouth every six hours oxyCODONE HCl 5 MG 1 tablet as needed Orally every 6 hrs Active Polyethylene Glycol 3350 17 GM/SCOOP (3 sources) Polyethylene Gly col 3350 17 GM/SCOOP as directed Orally Active potassium citrate 15 meq extended release oral tablet (20 sources) Start: 3 take 1 tablet by mouth every twelve hours Potassium Citrate ER 15 MEQ (1620 MG) 1 tablet with meals Orally Twice a day for 90 days Sep, Active Start: 03-05-2016 take 1 tablet by [facility] three times daily at mealtime Potassium Citrate 15 MEQ (1620 MG) 1 tablet with meals Orally Three times a day February, Active Start: 03-05-2016 take 1 tablet by [facility] three times daily at mealtime Potassium Citrate 15 MEQ (1620 MG) 1 tablet with meals Orally Three times a day February, Not-Taking Start: 06-23-2007 End: 11-20-2022 take 1 tablet by mouth three times daily potassium citrate (UROCIT-K 10) 10 mEq ORAL TbSR Take one(1) tablet three times daily. 0 06/23/2007 11/20/2022 Discontinued take 1 tablet by [facility] three times daily Potassium Citrate ER 15 MEQ (1620 MG) Oral Tablet Extended Release TAKE 1 TABLET 3 times daily Quantity: 0 Refills: 0 Ordered: 16-Aug-2021 DO Active Comment on above: Take one(1) tablet t hree times daily. pregabalin 300 mg oral capsule (20 sources) Start: 11-19-2021 Lyrica 600 mg 11/19/2021 Take 1 twice daily Start: 06-27-2021 take 1 mg by mouth twice daily pregabalin 300 mg Cap mg cap(s), Oral, BID, Refills(s) 0 Start Date: 01/16/23 Status: Ordered Comment on above: Take 300 mg by mouth twice daily. rOPINIRole 1 mg oral tablet (13 sources) Nonergot Dopamine Agonist take 1 tablet by mouth once daily at bedtime rOPINIRole HCl 1 MG 1 tablets 1 to 3 hours before bedtime Orally Once a day for 90 days Active take 1 tablet by brendan th once daily at bedtime rOPINIRole HCl 0.5 MG 1 tablet 1 to 3 ho urs before bedtime Orally Once a day Active sildenafil 100 mg oral tablet (20 sources) Phosphodiesterase 5 Inhibitor Start: 04-12-2020 take 1 tablet by mouth every twenty-four hours Sildenafil Citrate 100 MG 1 tablet as needed Orally Once a day PRN Mar, Active sildenafil 25 mg tablet unsure of dose Comment on above: Take 100 mg by mouth as needed. SUMAtriptan 50 mg oral tablet (1 source) Serotonin-1b and Serotonin-1d Receptor Agonist Start: 02-08-20 take 1 dose by mouth once 50 mg, Oral, ONCE PRN, 1 dose, Starting on Thu02/07/22 at 1617, Until Thu02/07/22 at 2121, Migraine Syringe (Disposable) 3 ML (14 sources) Start: 02-24-20 Syringe (Disposable) 3 ML as directed as directed as directed February, Active testosterone cypionate 200 mg/ml injectable solution (14 sources) Androgen Start: 04-27-20 inject 0.3 mL by subcutaneous injection two times weekly Testosterone Cypionate 200 MG/ML 0.3ml subq twice a week 10ml vial Apr, Active Start: 04-27-2023 inject 0.3 mL by sub cutaneous injection two times weekly Testosterone Cypionate 200 MG/ML 0.3ml subq twice a week 10ml vial Apr, Active Start: 02-23-2023 inject 0.3 mL by sub cutaneous injection two times weekly 24 hr tolterodine tartrate 4 mg extended release oral capsule (20 sources) Cholinergic Muscarinic Antagonist Start: 02-07-2022 take 1 capsule by mouth once daily tolterodine 4 mg Cap-ER 4 mg = 1 cap(s), Oral, Daily, # 30 cap(s), Refills(s) 11, Pharmacy: [id number], 175, cm, 03/20/23 9:07:00 EDT, Height/Length Dosing, 92, kg, 03/20/23 9:07:00 EDT, Weight Dosing Start Date: 06/23/23 Status: Ordered Detrol LA 2 mg c apsule,extended release unsure of dose Comment on above: Take 4 mg by mouth o nce daily. topiramate 100 mg oral tablet (20 sources) Start: 02-07-2022 take 1 tablet by mouth once daily 100 mg, Oral, DAILY, First dose on Thu02/07/22 at 1645, Until Discontinued It is not recommended to crush, break, or chew immediate release tablets due to bitter taste. Start: 11-19-2021 take 1 capsule by mo [facility] once daily topiramate oral capsule,sprinkle,ER 24hr 100 mg 11/19/2021 take 1 capsule (100 mg) by oral route once daily Start: 02-07-2019 End: 11-20-2022 take 1 tablet by mouth twice daily topiramate (TOPAMAX) 200 mg tablet Take 1 tablet by mouth twice daily. 180 tablet 5 02/07/2019 11/20/2022 Discontinued (Discontinued by another Health Care Provider) Start: 07-07-2018 End: 06-04-2023 take 1 mg by mouth twice daily topiramate 100 mg Tab mg tab(s), Oral, BID, Refills(s) 0 Start Date: 01/16/23 Status: Ordered Comment on above: Take 1 tablet by [facility] twice daily. traMADol hydrochloride 50 mg oral tablet (12 sources) Opioid Agonist Start: 09-02-2023 take 1 tablet by mouth every twelve hours traMADol HCl 50 MG 1 tablet as needed Orally twice a day for 30 days Aug, Active Start: 05-19-2023 take 1 tablet by [facility] every twelve hours traMADol HCl 50 MG 1 tablet as needed Orally twice a day for 30 days May, Active Start: 02-08-2022 traMADol (ULTR AM) tablet 50 mg 24 hr venlafaxine 37.5 mg extended release oral capsule (20 sources) Serotonin and Norepinephrine Reuptake Inhibitor Start: 01-16-2023 venlafaxine 37.5 mg Cap-ER Refills(s) 0 Start Date: 01/16/23 Status: Ordered take 1 capsule by [facility] every twenty-four hours Venlafaxine HCl ER 75 MG 1 capsule with food Orally Once a day for 90 days Active zinc oxide 0.2 mg/mg topical ointment (13 sources) Zinc Oxide 20 % as directed Externally Active Zinc Oxide 20 % as directed Externally Active Completed/Discontinued Medications Medication Drug Class(es) Dates Sig (Normalized) Sig (Original) acetaminophen 500 mg oral tablet (20 sources) Start: 12-06-2022 take 2 tablets by mouth three times daily acetaminophen (TYLENOL) 500 mg tablet 2 tablets by ORAL/FEEDING TUBE route three times daily. 42 tablet 0 12/06/2022 Active Start: 02-07-2022 take 650 mg by mouth every six hours as needed, then take 4000 mg by mouth every twenty-four hours as needed 650 mg, Oral, EVERY 6 HOURS PRN, Starting on Thu02/07/22 at 1617, Until Discontinued, Pain Mild (1-3), Fever Maximum dose of acetaminophen is 4000 mg from all sources in 24 hours. Post-op take 2 tablets by mo ut every six hours Tylenol 325 MG 2 tablet as needed Orally every 6 hrs PRN Active Tylenol 325 mg c apsule take 1 capsule by oral route As needed unsure of dose Comment on above: 2 tablets by ORAL/FE EDING TUBE route three times daily. [id number] 200 actuat albuterol 0.09 mg/actuat metered dose inhaler (20 sources) beta2-Adrenergic Agonist Start: 02-07-2022 1 puff, Inhalation, PRN, Starting on Thu02/07/22 at 1617, Until Discontinued, Wheezing Initiate RT Bronchodilator Protocol: Yes Start: 11-08-2019 Albuterol Sulf ate 1.25 mg/3 mL INHALATION nebulizer solution Use 1 Ampule via nebulizer every 6 hours as needed for Wheezing/Shortness of Breath. 0 11/08/2019 Active Start: 02-06-2011 Albuterol Sulf ate (2.5 MG/3ML) 0.083% 3 mL prefilled vial Inhalation qid prn for 30 day(s) Jan, Active Start: 02-06-2011 Albuterol Sulf ate (2.5 MG/3ML) 0.083% 3 mL prefilled vial Inhalation qid prn for 30 day(s) Jan, Active Start: 02-06-2011 Albuterol Sulf ate (2.5 MG/3ML) 0.083% as directed Inhalation qid prn prn Jan, Active Albuterol Sulfat e (2.5 MG/3ML) 0.083% Inhalation Nebulization Solution USE DIRECTED. Quantity: 0 Refills: 0 Ordered: 16-Aug-2021 DO Active take 1 puff(s) by in halation every six hours as needed albuterol sulfate HFA 90 mcg/actuation aerosol inhaler inhale 1 puff (90 mcg) by inhalation route every 6 hours as needed unsure of dose Comment on above: Use 1 Ampule via neb ulizer every 6 hours as needed for Wheezing/Shortness of Breath. albuterol 0.833 mg/ml / ipratropium bromide 0.167 mg/ml inhalation solution (2 sources) Anticholinergic, beta2-Adrenergic Agonist Start: 2022 take 3 mL by inhalation every four hours as needed ipratropium-albuter ol (DUONEB) 0.5 mg-3 mg(2.5 mg base)/3 mL nebu Inhale 3 mL as instructed every 4 hours as needed for wheezing/shortness of breath. 10 Each 0 12/06/2022 Active Comment on above: Inhale 3 mL as instr ucted every 4 hours as needed for wheezing/shortness of breath. amitriptyline hydrochloride 25 mg oral tablet (3 sources) Tricyclic Antidepressant Start: 2011 End: 2022 take 2 tablets by mouth once daily at bedtime amitriptyline 25 mg ORAL tablet Take 50 mg by mouth daily at bedtime. TAKES 2 50 MG AT HS 0 10/22/2011 11/20/2022 Discontinued Comment on above: Take 50 mg by mouth daily at bedtime. TAKES 2 50 MG AT HS aspirin 81 mg delayed release oral tablet (3 sources) Platelet Aggregation Inhibitor, Nonsteroidal Anti-inflammatory Drug Start: 2019 End: 2022 take 1 tablet by mouth twice daily aspirin, enteric coated (ASPIRIN, ENTERIC COATED) 81 mg EC tablet Take 1 tablet by mouth twice daily. 84 tablet 0 05/04/2020 11/20/2022 Discontinued Comment on above: Take 1 tablet by brendan th twice daily. benzocaine 6 mg / menthol 10 mg oral lozenge (2 sources) Standardized Chemical Allergen Start: 2022 benzocaine-menthol (CHLORASEPTIC) 6-10 mg lozenges Use 1 Lozenge as instructed every 2 hours as needed. 18 Each 0 12/06/2022 Active Comment on above: Use 1 Lozenge as ins tructed every 2 hours as needed. augmented betamethasone 0.0005 mg/mg topical ointment (3 sources) Corticosteroid Start: 2016 End: 2022 Aug Betamethasone Dipropionate (DIPROLENE) 0.05 % ointment APPLY TO THE AFFECTED AREA(S) ONCE DAILY 1 05/26/2017 11/20/2022 Discontinued Comment on above: APPLY TO THE AFFECTE D AREA(S) ONCE DAILY betamethasone 0.5 mg/ml / clotrimazole 10 mg/ml topical cream (3 sources) Azole Antifungal, Corticosteroid End: 2022 clotrimazole-betame thasone (LOTRISONE) cream Apply to affected area twice daily. 0 11/20/2022 Discontinued Comment on above: Apply to affected ar ea twice daily. bisacodyl 5 mg delayed release oral tablet (2 sources) Stimulant Laxative Start: 2021 take 5 mg by mouth once daily 5 mg, Oral, DAILY, First dose on Thu02/07/22 at 1645, Until Discontinued Do not crush or break. Post-op Start: 02-07-2022 take 10 mg rectal ro [facility] once daily as needed 10 mg, Rectal, DAILY PRN, Starting on Thu02/07/22 at 1617, Until Discontinued, Constipation First line therapy for constipation Post-op Budesonide / formoterol (20 sources) Corticosteroid, beta2-Adrenergic Agonist Start: 04-28-2016 End: 11-20-2022 take 2 puff(s) by inhalation twice daily budesonide-formoterol (SYMBICORT) 160-4.5 mcg/actuation inhaler Inhale 2 Puffs as instructed twice daily. 0 04/28/2016 11/20/2022 Discontinued Start: 04-28-2016 take 2 puff(s) by in halation twice daily budesonide-formoterol (SYMBICORT) 160-4.5 mcg/actuation inhaler Inhale 2 Puffs as instructed twice daily. 0 04/28/2016 Active take 2 puff(s) by in halation twice daily Symbicort 160-4.5 MCG/ACT 2 puffs Inhalation Twice a day Not-Taking take 2 puff(s) by [facility] twice daily Symbicort 160-4.5 MCG/ACT Inhalation Aerosol INHALE 2 PUFFS TWICE DAILY. RINSE MOUTH AFTER USE. Quantity: 0 Refills: 0 Ordered: 16-Aug-2021 DO Active Comment on above: Inhale 2 Puffs as in structed twice daily. ceFAZolin (ANCEF) 2000 mg in sterile water 20 mL IV syringe (1 source) Start: 2 End: 2 2,000 mg, IntraVENous, EVERY 8 HOURS, 2 doses, First dose on Thu02/07/22 at 1845, Last dose on Thu02/08/22 at 0245 Antimicrobial Indications: Surgical Prophylaxis Administer over 5 mins. Post-op cosyntropin (CORTROSYN) injection 250 mcg (1 source) Start: 2 End: 2 cosyntropin (CORTROSYN) injection 250 mcg docusate sodium 100 mg oral capsule (20 sources) Start: 0 End: 3 take 1 capsule by mouth twice daily docusate sodium (COLACE) 100 mg capsule Indications: Rotator cuff syndrome of shoulder and allied disorders, unspecified laterality Take 1 capsule by mouth twice daily. 60 capsule 0 05/04/2020 12/06/2022 Discontinued take 1 capsule by [facility] every twenty-four hours Docusate Sodium 100 MG 1 capsule Orally Once a day for 90 days Active Comment on above: Take 1 capsule by [facility] twice daily. docusate sodium 50 mg / sennosides, [facility] 8.6 mg oral tablet (1 source) Start: 2 take 1 tablet by mouth twice daily 1 tablet, Oral, 2 TIMES DAILY, First dose on Thu02/07/22 at 2100, Until Discontinued, Post-op 500 ml DOPamine hydrochloride 1.6 mg/ml injection (1 source) Catecholamine Start: 2 End: 2 DOPamine (INTROPIN) 400 mg in dextrose 5 % 250 mL infusion 2 ml fentaNYL 0.05 mg/ml injection (2 sources) Opioid Agonist Start: 2 End: 2 fentaNYL (SUBLIMAZE) injection 50 mcg Start: 02-07-2022 End: 02-07-2022 fentaNYL (SUBLIMAZE) 100 MCG /2ML injection 60 actuat formoterol fumarate 0.005 mg/actuat / mometasone furoate 0.2 mg/actuat metered dose inhaler (1 source) Corticosteroid, beta2-Adrenergic Agonist Start: 02-07-2022 take 2 puff(s) by inhalation twice daily 2 puff, Inhalation, 2 TIMES DAILY, First dose on Thu02/07/22 at 2000, Until Discontinued Substituted for Budesonide-Formoterol (SYMBICORT). 2 ml glycopyrrolate 0.2 mg/ml injection (2 sources) Start: 12-06-2022 inject 1 mL by subcutaneous injection every four hours as needed glycopyrrolate (ROBINUL) 0.2 mg/mL injection Inject 1 mL intravenously or subcutaneousl every 4 hours as needed. 5 mL 0 12/06/2022 Active Comment on above: Inject 1 mL intraven ously or subcutaneousl every 4 hours as needed. 12 hr guaiFENesin 600 mg extended release oral tablet (2 sources) Start: 12-06-2022 take 1 tablet by mouth every twelve hours as needed for cough guaiFENesin (MUCINEX) 600 mg 12 hr tablet Take 1 tablet by mouth every 12 hours as needed (cough, congestion). 7 tablet 0 12/06/2022 Active Comment on above: Take 1 tablet by brendan th every 12 hours as needed (cough, congestion). hydrocortisone 100 mg injection (2 sources) Corticosteroid Start: 02-11-2022 End: 02-12-2022 hydrocortisone sodium succinate PF (SOLU-CORTEF) injection 50 mg Start: 02-09-2022 End: 02-10-2022 hydrocortisone sodium succin ate PF (SOLU-CORTEF) injection 100 mg hydrOXYzine hydrochloride 50 mg oral tablet (3 sources) Antihistamine Start: 05-26-2017 End: 11-20-2022 take 2 tablets by mouth once daily hydrOXYzine HCl (ATARAX) 50 mg tablet Take 100 mg by mouth once daily. 0 05/26/2017 11/20/2022 Discontinued Comment on above: Take 100 mg by mouth once daily. Ketorolac (20 sources) Nonsteroidal Anti-inflammatory Drug, Cyclooxygenase Inhibitor Start: 04-12-2020 Toradol per 15 mg Mar, 2 cc Start: 05-06-2018 Toradol per 15 mg Apr, 2 cc Start: 10-03-2017 Toradol per 15 mg 16 Sep, 2017 2 cc Start: 09-17-2017 Toradol per 15 mg 30 Aug, 2017 2 cc Start: 03-24-2017 Toradol per 15 mg Mar, 2 mL Start: 01-29-2017 Toradol per 15 mg Jan, 2.0 cc Start: 12-25-2016 Toradol per 15 mg Dec, 2.0 cc Start: 08-12-2016 Toradol per 15 mg Jul, 2.0 cc Start: 01-17-2016 Toradol per 15 mg Dec, 2 cc Start: 10-22-2015 Toradol per 15 mg Oct, 2.0 cc Start: 10-26-2014 Toradol per 15 mg Oct, 2.0 cc Start: 07-11-2014 Toradol per 15 mg Jun, 2 cc Start: 06-27-2014 Toradol per 15 mg Jun, 2 cc Start: 04-20-2014 Toradol per 15 mg Apr, 2 mL Start: 01-18-2013 Toradol per 15 mg Jan, 2ml linaclotide (20 sources) Guanylate Cyclase-C Agonist Start: 10-15-2017 Linzess 145 145mcg o ne PO daily for 90 days Sep, Not-Taking Start: 10-15-2017 Linzess 145 14 5mcg one PO daily for 90 days Sep, Active End: 11-20-2022 take 1 capsule by mouth once daily linaclotide (LINZESS) 145 mcg cap Take 145 mcg by mouth once daily. 0 11/20/2022 Discontinued (Discontinued by another Health Care Provider) Comment on above: Take 145 mcg by mout h once daily. magnesium hydroxide 80 mg/ml oral suspension (3 sources) Start: 7 End: 3 take 15 mL by mouth once daily as needed magnesium hydroxide (MILK OF MAGNESIA) 400 mg/5 mL suspension Take 15 mL by mouth once daily as needed. Take if no BM > 48 hrs. 120 mL 0 04/27/2017 11/20/2022 Discontinued Comment on above: Take 15 mL by mouth once daily as needed. Take if no BM > 48 hrs. metFORMIN hydrochloride 500 mg oral tablet (20 sources) Biguanide Start: 2 take 500 mg by mouth twice daily at mealtime 500 mg, Oral, 2 TIMES DAILY WITH MEALS, First dose on Thu02/07/22 at 1700, Until Discontinued End: 11-20-2022 take 1 tablet by mouth twice daily at mealtime metFORMIN (GLUCOPHAGE) 1,000 mg tablet Take 1,000 mg by mouth twice daily with meals. 0 11/20/2022 Discontinued take 1 tablet by brendan th every twelve hours at mealtime metFORMIN HCl - 500 MG Oral Tablet TAKE 1 TABLET EVERY 12 HOURS WITH FOOD. Quantity: 0 Refills: 0 Ordered: 16-Aug-2021 DO Active Comment on above: Take 1,000 mg by brendan th twice daily with meals. miSOPROStol 0.2 mg oral tablet (3 sources) Prostaglandin E1 Analog End: 3 take 1 tablet by mouth four times daily miSOPROStol (CYTOTEC) 200 mcg tablet Take 200 mcg by mouth four times daily. Only Takes when needed for stomach upset 0 11/20/2022 Discontinued Comment on above: Take 200 mcg by mout h four times daily. Only Takes when needed for stomach upset Multi Vitamin TABS (5 sources) Multi Vitamin TA BS TAKE 1 TABLET DAILY. Quantity: 0 Refills: 0 Ordered: 16-Aug-2021 DO Active MULTIVIT-MIN/FA/LYCO PEN/LUTEIN (CENTRUM SILVER ULTRA MEN'S ORAL) (3 sources) End: 3 take 1 tablet by mouth once daily MULTIVIT-MIN/FA/LYCO PEN/LUTEIN (CENTRUM SILVER ULTRA MEN'S ORAL) Take 1 tablet by mouth once daily. 0 11/20/2022 Discontinued take 1 tablet by brendan th once daily MULTIVIT-MIN/FA/LYCOPEN/LUTEIN (CENTRUM SILVER ULTRA MEN'S ORAL) Take 1 tablet by mouth once daily. 0 Active Comment on above: Take 1 tablet by brendan th once daily. multivitamin tablet (2 sources) take 1 tablet by mouth once daily multivitamin tablet take 1 tablet by oral route daily unsure of dose Multivitamins DX: 285.9 (20 sources) Start: 3 take 1 capsule by mouth once daily Multivitamins DX: 285.9 1 capsule Orally Once a day for 90 days Jul, Not-Taking Start: 08-15-2013 take 1 capsule by [facility] once daily Multivitamins DX: 285.9 1 capsule Orally Once a day for 90 days Jul, Active naloxone hydrochloride 40 mg/ml nasal spray (3 sources) Opioid Antagonist Start: 05-04-2020 End: 11-20-2022 naloxone 4 mg/actuation nasal spray (NARCAN) Use 1 spray in one nostril as needed for overdose. May repeat every 2 to 3 min in alternating nostrils until medical assistance is available 1 Box 0 05/04/2020 11/20/2022 Discontinued Comment on above: Use 1 spray in one n ostril as needed for overdose. May repeat every 2 to 3 min in alternating nostrils until medical assistance is available omeprazole 40 mg delayed release oral capsule (1 source) Proton Pump Inhibitor take 1 capsule by mouth once daily omeprazole (PRILOSEC) 40 mg capsule Take 40 mg by mouth once daily. 0 Active Comment on above: Take 40 mg by mouth once daily. 24 hr oxybutynin chloride 15 mg extended release oral tablet (3 sources) Cholinergic Muscarinic Antagonist End: 11-20-2022 take 15 mg by mouth once daily OXYBUTYNIN CHLORIDE ORAL Take 15 mg by mouth once daily. 0 11/20/2022 Discontinued Comment on above: Take 15 mg by mouth once daily. pantoprazole 40 mg delayed release oral tablet (20 sources) Proton Pump Inhibitor Start: 02-07-2022 take 40 mg by mouth once daily 40 mg, Oral, DAILY, First dose on Thu02/07/22 at 1645, Until Discontinued Do not crush or break. Protonix 40 mg g ranules delayed-release packet take 1 packet (40 mg) mixed in 1 teaspoonful of applesauce or apple juice by oral route once daily unsure of dose pimavanserin 34 mg oral capsule (1 source) Atypical Antipsychotic Start: 07-03-2020 End: 08-23-2020 take 1 capsule by mouth once daily at bedtime pimavanserin 34 mg Take 1 capsule by mouth daily at bedtime. 30 capsule 11 07/03/2020 08/23/2020 Discontinued (Other) Comment on above: Take 1 capsule by [facility] daily at bedtime. polyethylene glycol 3350 23690 mg powder for oral solution (13 sources) Osmotic Laxative Start: 02-07-2022 polyethylene glycol 3350 (MIRALAX, GLYCOLAX) 17 gram packet Take 1 Packet by mouth once daily. Dissolve dose in 4 - 8 ounces of liquid and take as directed. 0 12/06/2022 Active Comment on above: Take 1 Packet by brendan th once daily. Dissolve dose in 4 - 8 ounces of liquid and take as directed. promethazine hydrochloride 25 mg oral tablet (3 sources) Phenothiazine End: 11-20-2022 take 1 tablet by mouth every six hours as needed promethazine (PHENERGAN) 25 mg tablet 25 mg every 6 hours as needed for Nausea/Vomiting. 0 11/20/2022 Discontinued Comment on above: 25 mg every 6 hours as needed for Nausea/Vomiting. 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 90 tablet 1 01/11/2020 11/20/2022 Discontinued Comment on above: Take 1 tablet by brendan th every evening. sennosides, [facility] 8.6 mg oral tablet (2 sources) Start: 12-06-2022 take 1 tablet by mouth twice daily senna (SENOKOT) 8.6 mg tab Take 1 tablet by mouth twice daily. 0 12/06/2022 Active Comment on above: Take 1 tablet by brendan twice daily. 50 ml sodium chloride 9 mg/ml injection (10 sources) Start: 02-14-2022 End: 02-14-2022 0.9 % sodium chloride bolus Start: 02-08-2022 End: 02-08-2022 0.9 % sodium chloride bolus Start: 02-07-2022 take 1 dose intraven ously twice daily 5-40 mL, IntraVENous, EVERY 12 HOURS SCHEDULED (2 times per day), First dose on Thu02/07/22 at 2100, Until Discontinued For Line Patency: Peripheral IV = 5 mL; Midline or Central Line = 10 mL/lumen. If following IV push medication, administer flush at same rate as the IV push. Flush volume is determined by type of infusion therapy being given. For non-viscous solutions use: Peripheral IV = 5 mL Midline or Central Line = 10 mL/lumen For viscous solutions (i.e. blood components, parenteral nutrition, contrast media, or after obtaining blood sample) use: Peripheral IV = 10 mL Midline or Central Line = 20 mL/lumen Post-op Start: 02-07-2022 IntraVENous, a t 5-250 mL/hr, PRN, if patient receiving piggyback infusions and maintenance fluids are not ordered OR KVO fluids to protect IV site / prevent frequent line interruptions/ long duration, Starting on Thu02/07/22 at 1617 For piggyback infusion, administer at same rate as piggyback for a total of 25 mL. Enter 25 mL into dose field and piggyback rate into rate field of order. If piggyback is infusing at a rate less than 100 mL/hr, enter 25 mL into dose field and 100 mL/hr into rate field of order. For KVO fluids, enter rate of 20 mL/hr or less into rate field of order. Post-op Start: 02-07-2022 take 5-40 mL intrave nously once as needed 5-40 mL, IntraVENous, PRN, Starting on Thu02/07/22 at 1617, Until Discontinued, Line Care, After every IV line use For Line Patency: Peripheral IV = 5 mL; Midline or Central Line = 10 mL/lumen. If following IV push medication, administer flush at same rate as the IV push. Flush volume is determined by type of infusion therapy being given. For non-viscous solutions use: Peripheral IV = 5 mL Midline or Central Line = 10 mL/lumen For viscous solutions (i.e. blood components, parenteral nutrition, contrast media, or after obtaining blood sample) use: Peripheral IV = 10 mL Midline or Central Line = 20 mL/lumen Post-op Start: 02-07-2022 End: 02-13-2022 IntraVENous, at 75 mL/hr, CONTINUOUS, Starting on Thu02/07/22 at 1645, Post-op sodium phosphate, dibasic 35.5 mg/ml / sodium phosphate, monobasic 96.4 mg/ml enema (1 source) Start: 02-07-2022 1 enema, Recta l, DAILY PRN, Starting on Thu02/07/22 at 1617, Until Discontinued, Constipation Second line therapy for constipation, After 24 hours, if no result from first line PRN therapy, give second line therapy in combination with first line therapy. Post-op sucralfate 1000 mg oral tablet (3 sources) Aluminum Complex Start: 04-28-2016 End: 11-20-2022 take 1 tablet by mouth four times daily sucralfate (CARAFATE) 1 gram tablet Take 1 tablet by mouth four times daily. 0 04/28/2016 11/20/2022 Discontinued Comment on above: Take 1 tablet by brendan th four times daily. tamsulosin hydrochloride 0.4 mg oral capsule (20 sources) alpha-Adrenergi c Ching Start: 02-07-2022 End: 02-12-2022 take 0.8 mg by mouth once daily 0.8 mg, Oral, NIGHTLY, First dose on Thu02/07/22 at 2100, Until Discontinued Do not crush or break. Start: 12-05-2021 End: 02-14-2022 take 1-2 capsules by mouth once daily Tamsulosin HCl 0.4 MG 1-2 capsules Orally Once a day for 90 days Nov, Not-Taking tiZANidine 4 mg oral tablet (3 sources) Central alpha-2 Adrenergic Agonist Start: 03-17-2018 End: 11-20-2022 take 1 tablet by mouth every eight hours as needed tiZANidine (ZANAFLEX) 4 mg tablet Take 1 tablet by mouth every 8 hours as needed. TAKES 2 TAB AT HS 30 tablet 0 03/17/2018 11/20/2022 Discontinued Comment on above: Take 1 tablet by brendan th every 8 hours as needed. TAKES 2 TAB AT HS urea 400 mg/ml topical lotion (3 sources) End: 11-20-2022 urea (CARMOL) 40 % lotn Apply to affected area twice daily. 0 11/20/2022 Discontinued Comment on above: Apply to affected ar ea twice daily. vancomycin (VANCOCIN) 1,500 mg in dextrose 5 % 500 mL IVPB (1 source) Start: 02-08-2022 End: 02-08-2022 1,500 mg, IntraVENous, EVERY 12 HOURS, 1 dose, First dose on 02/08/22 at 0015 Antimicrobial Indications: Surgical Prophylaxis Post-op Problems Active Problems Problem Classification Problem Date Documented Da te Episodic/Chronic Allergic reactions (2 sources) Contact dermatitis and other eczema due to other specified agents; Translations: [Irritant contact dermatitis due to fecal incontinence] Onset: 11-24-2022 12-05-2022 Episodic Anxiety disorders (20 sources) Other specified anxiety disorders; Translations: [Anxiety] 01-15-2023 Chronic Asthma (20 sources) Unspecified asthma, uncomplicated; Translations: [Asthma] Onset: 12-07-2017 12-07-2017 Chronic Bacterial infection; unspecified site (20 sources) Methicillin resistant Staphylococcus aureus infection, unspecified site; Translations: [Methicillin resistant Staphylococcus aureus] Onset: 01-27-2022 Resolved: 01-27-2022 Episodic Calculus of urinary tract (20 sources) Calculus of kidney; Translations: [Personal history of urinary calculi] Onset: 01-27-2022 Resolved: 05-21-2022 Episodic Chronic obstructive pulmonary disease and bronchiectasis (20 sources) Emphysema, unspecified; Translations: [Emphysematous bronchitis] Onset: 04-15-2017 05-03-2020 Chronic Chronic obstructive pulmonary disease and bronchiectasis (2 sources) Bronchitis, not specified as acute or chronic Episodic Chronic ulcer of skin (20 sources) Ulcer; Translations: [Non-pressure chronic ulcer of skin of other sites with unspecified severity] Onset: 08-06-2021 Resolved: 08-06-2021 Chronic Complication of device; implant or graft (1 source) Infection and inflammatory reaction due to indwelling urethral catheter, sequela Episodic Coronary atherosclerosis and other heart disease (14 sources) Coronary atherosclerosis Onset: 12-02-2021 01-15-2023 Chronic Deficiency and other anemia (3 sources) Anemia, unspecified; Translations: [ANEMIA UNSPECIFIED] Onset: 02-13-2023 Episodic Deficiency and other anemia (20 sources) Anemia; Translations: [Anemia, unspecified] 01-15-2023 Episodic Deficiency and other anemia (20 sources) Iron deficiency anemia; Translations: [Iron deficiency anemia, unspecified] 01-15-2023 Episodic Deficiency and other anemia (1 source) Iron deficiency anemia, unspecified Episodic Diabetes mellitus with complications (20 sources) Disorder of kidney due to diabetes mellitus; Translations: [Type 2 diabetes mellitus with diabetic nephropathy] Onset: 11-13-2022 01-15-2023 Chronic Diabetes mellitus without complication (20 sources) Diabetes mellitus; Translations: [Diabetes mellitus without mention of complication, type II or unspecified type, not stated as uncontrolled] Onset: 04-15-2017 Resolved: 01-15-2023 05-03-2020 Chronic E Codes: Fall (20 sources) Fall; Translations: [Unspecified fall, initial encounter] Onset: 11-20-2022 12-05-2022 Episodic Essential hypertension (20 sources) Essential (primary) hypertension; Translations: [Essential hypertension] Onset: 12-07-2017 05-03-2020 Chronic Genitourinary symptoms and ill-defined conditions (20 sources) Urinary incontinence; Translations: [Unspecified urinary incontinence] Onset: 10-15-2022 Chronic Genitourinary symptoms and ill-defined conditions (20 sources) Urgent desire to urinate; Translations: [Urgency of urination] Onset: 07-31-2006 07-31-2006 Episodic Headache; including migraine (1 source) Headache; including migraine; Translations: [Headache, unspecified] Onset: 03-23-2023 Hyperplasia of prostate (20 sources) Benign prostatic hypertrophy with outflow obstruction; Translations: [Benign prostatic hyperplasia with lower urinary tract symptoms] Onset: 08-12-2010 Resolved: 01-15-2023 08-12-2010 Chronic Immunizations and screening for infectious disease (13 sources) Needs influenza immunization; Translations: [Encounter for immunization] Episodic Miscellaneous mental health disorders (6 sources) Psychosexual dysfunction; Translations: [Unspecified sexual dysfunction not due to a substance or known physiological condition] Onset: 07-31-2006 07-31-2006 Chronic Mood disorders (20 sources) Major depressive disorder, single episode, unspecified; Translations: [Depression] Onset: 11-20-2022 01-16-2023 Chronic Mood disorders (2 sources) Mood disorders; Translations: [DEPRESSION UNSPECIFIED] Onset: 01-24-2023 Neoplasms of unspecified nature or uncertain behavior (20 sources) Monoclonal gammopathy of uncertain significance; Translations: [Monoclonal gammopathy] Onset: 09-15-2018 09-15-2018 Chronic Nonspecific chest pain (5 sources) Chest pain; Translations: [Chest pain, unspecified] Episodic Nutritional deficiencies (3 sources) Deficiency of macronutrients; Translations: [Unspecified severe protein-calorie malnutrition] Onset: 11-13-2022 12-05-2022 Chronic Osteoarthritis (20 sources) Unilateral primary osteoarthritis, right knee; Translations: [Unspecified osteoarthritis, unspecified site] Onset: 01-28-2017 Resolved: 05-21-2022 07-01-2017 Chronic Other acquired deformities (2 sources) Other kyphoscoliosis and scoliosis Chronic Other aftercare (2 sources) Patient encounter status; Translations: [Encounter for palliative care] Onset: 12-06-2022 12-06-2022 Episodic Other aftercare (1 source) Other halfway (current) drug therapy; Translations: [OTH ROD PLACER CURRENT DRUG THERAPY] Onset: 02-13-2023 Episodic Other bone disease and musculoskeletal deformities (20 sources) Acquired absence of other left toe(s); Translations: [Toe amputation status, left] Episodic Other circulatory disease (2 sources) Idiopathic hypotension; Translations: [Idiopathic hypotension] Onset: 02-11-2022 Episodic Other circulatory disease (6 sources) Hypotension, unspecified; Translations: [Hypotension I95.9] Onset: 08-06-2021 Resolved: 03-25-2022 Episodic Other circulatory disease (6 sources) Orthostatic hypotension; Translations: [Orthostatic hypotension] Onset: 11-13-2022 Episodic Other congenital anomalies (6 sources) Microstomia; Translations: [Microstomia] Onset: 08-09-2010 08-09-2010 Chronic Other connective tissue disease (1 source) Presence of right artificial knee joint; Translations: [Presence of right artificial knee joint] Onset: 07-01-2017 Chronic Other connective tissue disease (20 sources) History of repair of hip joint; Translations: [Presence of unspecified artificial hip joint] Chronic Other connective tissue disease (5 sources) History of left shoulder arthroplasty; Translations: [Presence of left artificial shoulder joint] Onset: 02-08-2018 02-08-2018 Chronic Other connective tissue disease (2 sources) Pain in right leg Onset: 11-19-2021 Episodic Other connective tissue disease (2 sources) Pain in left leg Onset: 11-19-2021 Episodic Other connective tissue disease (1 source) Pain in right arm Onset: 12-03-2021 Episodic Other connective tissue disease (1 source) Pain in left arm Onset: 12-03-2021 Episodic Other connective tissue disease (14 sources) Muscle atrophy; Translations: [Muscle wasting and atrophy, not elsewhere classified, multiple sites] Episodic Other diseases of bladder and urethra (11 sources) Neurogenic bladder; Translations: [Neuromuscular dysfunction of bladder, unspecified] Chronic Other diseases of bladder and urethra (2 sources) Neuromuscular dysfunction of bladder, unspecified; Translations: [Neuromuscular dysfunction of bladder, unspecified] Onset: 03-23-2023 Chronic Other diseases of kidney and ureters (1 source) Urinary tract obstruction; Translations: [Other obstructive and reflux uropathy] Onset: 07-17-2023 Episodic Other endocrine disorders (14 sources) Testicular hypofunction Onset: 07-09-2022 01-15-2023 Chronic Other endocrine disorders (14 sources) Hypotestosteronism; Translations: [Endocrine disorder, unspecified] Episodic Other endocrine disorders (1 source) Endocrine disorder, unspecified Episodic Other gastrointestinal disorders (10 sources) Neurogenic bowel; Translations: [Neurogenic bowel, not elsewhere classified] Chronic Other gastrointestinal disorders (3 sources) Neurogenic bowel, not elsewhere classified; Translations: [Neurogenic bowel, not elsewhere classified] Onset: 03-23-2023 Chronic Other gastrointestinal disorders (20 sources) Constipation; Translations: [Constipation, unspecified] Episodic Other gastrointestinal disorders (4 sources) Constipation, unspecified Onset: 08-27-2021 Resolved: 05-21-2022 Episodic Other gastrointestinal disorders (20 sources) Complete fecal incontinence; Translations: [Full incontinence of feces] Episodic Other gastrointestinal disorders (2 sources) Diarrhea, unspecified Episodic Other hereditary and degenerative nervous system conditions (6 sources) Essential tremor; Translations: [Essential tremor] Onset: 10-27-2017 10-27-2017 Chronic Other hereditary and degenerative nervous system conditions (11 sources) Restless legs; Translations: [Restless legs syndrome] Chronic Other hereditary and degenerative nervous system conditions (1 source) Restless legs syndrome Chronic Other lower respiratory disease (5 sources) Dyspnea; Translations: [Other respiratory abnormalities] Episodic Other lower respiratory disease (1 source) Shortness of breath; Translations: [SOB (shortness of breath)] Onset: 11-20-2022 Episodic Other male genital disorders (6 sources) Secondary erectile dysfunction; Translations: [Male erectile dysfunction, unspecified] Onset: 10-08-2007 10-08-2007 Chronic Other male genital disorders (20 sources) Impotence of organic origin; Translations: [Male erectile dysfunction, unspecified] Chronic Other nervous system disorders (20 sources) Chronic pain syndrome; Translations: [Chronic pain syndrome] Onset: 04-15-2017 04-15-2017 Chronic Other nervous system disorders (6 sources) Complex regional pain syndrome type I; Translations: [Complex regional pain syndrome I, unspecified] Onset: 03-16-2018 03-17-2018 Chronic Other nervous system disorders (20 sources) Neuropathy; Translations: [Polyneuropathy, unspecified] Chronic Other nervous system disorders (6 sources) Polyneuropathy, unspecified Onset: 10-23-2021 Resolved: 06-17-2022 Chronic Other nervous system disorders (11 sources) Disorder of autonomic nervous system; Translations: [Disorder of the autonomic nervous system, unspecified] Chronic Other nervous system disorders (2 sources) Disorder of the autonomic nervous system, unspecified; Translations: [Disorder of the autonomic nervous system, unspecified] Onset: 03-23-2023 Chronic Other nervous system disorders (1 source) Other chronic pain; Translations: [Other chronic pain] Onset: 03-23-2023 Chronic Other nervous system disorders (1 source) Chronic pain syndrome Chronic Other nervous system disorders (4 sources) Anesthesia of skin Episodic Other nervous system disorders (3 sources) Other disturbances of skin sensation Onset: 11-19-2021 Episodic Other nervous system disorders (20 sources) Abnormal involuntary movement; Translations: [Tremor, unspecified] Episodic Other nervous system disorders (20 sources) Ataxia; Translations: [Ataxia, unspecified] Episodic Other non-epithelial cancer of skin (20 sources) Malignant tumor of lip; 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] Onset: 05-11-2007 10-18-2019 Episodic Other nutritional; endocrine; and metabolic disorders (20 sources) Obesity; Translations: [Obesity, unspecified] Chronic Other nutritional; endocrine; and metabolic disorders (6 sources) Obese class I; Translations: [Obesity, unspecified] Onset: 03-17-2018 03-17-2018 Chronic Other nutritional; endocrine; and metabolic disorders (1 source) Adult failure to thrive; Translations: [Failure to thrive in adult] Onset: 11-20-2022 Episodic Other screening for suspected conditions (not mental disorders or infectious disease) (20 sources) Screening status; Translations: [Encounter for screening for malignant neoplasm of respiratory organs] Onset: 08-27-2021 Resolved: 12-05-2021 Episodic Comment on above: MRSA suprapubic cath site 07/17/2023 Other skin disorders (2 sources) Skin eschar; Translations: [Changes in skin texture] Onset: 11-24-2022 12-05-2022 Episodic Otitis media and related conditions (1 source) Unspecified Eustachian tube disorder, bilateral Episodic Parkinson`s disease (20 sources) Symptomatic parkinsonism; Translations: [Paralysis agitans] Onset: 04-13-2019 Resolved: 05-21-2022 11-08-2019 Chronic Pleurisy; pneumothorax; pulmonary collapse (20 sources) Atelectasis; Translations: [Atelectasis] Episodic Residual codes; unclassified (3 sources) Sleep apnea, unspecified; Translations: [SLEEP APNEA UNSPECIFIED] Onset: 02-13-2023 Chronic Residual codes; unclassified (7 sources) Postprocedural state finding; Translations: [Presence of other specified functional implants] Onset: 09-07-2018 09-07-2018 Chronic Residual codes; unclassified (20 sources) Sleep apnea; Translations: [Sleep apnea, unspecified] 05-03-2020 Chronic Residual codes; unclassified (1 source) Dependence on wheelchair; Translations: [DEPENDENCE ON WHEELCHAIR] Onset: 02-13-2023 Chronic Residual codes; unclassified (1 source) H/O Spinal surgery; Translations: [Presence of other specified functional implants] 06-15-2020 Chronic Residual codes; unclassified (20 sources) Insomnia; Translations: [Insomnia, unspecified] Episodic Residual codes; unclassified (2 sources) At risk of delirium; Translations: [Other specified personal risk factors, not elsewhere classified] Onset: 11-21-2022 12-05-2022 Episodic Spondylosis; intervertebral disc disorders; other back problems (20 sources) Displacement of thoracic intervertebral disc without myelopathy; Translations: [Other intervertebral disc displacement, thoracic region] Onset: 03-06-2004 Resolved: 10-23-2021 03-06-2004 Chronic Spondylosis; intervertebral disc disorders; other back problems (20 sources) Low back pain; Translations: [Cervicalgia] Onset: 03-06-2004 Resolved: 01-27-2022 03-06-2004 Episodic Substance-related disorders (20 sources) Smoker; Translations: [Tobacco use disorder] Onset: 03-17-2018 11-08-2019 Chronic Comment on above: 6 ciggs daily; Syncope (20 sources) Syncope; Translations: [Syncope and collapse] Onset: 08-29-2020 08-29-2020 Episodic Unclassified (3 sources) Unknown / UNK(Unknown) Onset: 05-30-2016 Unclassified (5 sources) Disorder of rotator cuff; Translations: [Rotator cuff syndrome of shoulder and allied disorders] Onset: 12-10-2004 08-07-2016 Unclassified (1 source) NO SHOW Unclassified (1 source) CONTACT W/AND (SUSP) EXPOS COVID-19; Translations: [CONTACT W/AND (SUSP) EXPOS COVID-19] Onset: 11-13-2022 Unclassified (1 source) Post COVID-19 condition, unspecified; Translations: [Post COVID-19 condition, unspecified] Onset: 03-23-2023 Urinary tract infections (20 sources) Acute cystitis; Translations: [Acute cystitis without hematuria] Onset: 04-27-2020 04-27-2020 Episodic Viral infection (2 sources) Disease caused by 2019-nCoV; Translations: [COVID-19] Onset: 11-20-2022 12-05-2022 Episodic Past or Other Problems Problem Classification Problem Date Documented Da te Episodic/Chronic Acquired foot deformities (3 sources) Right foot drop; Translations: [Foot drop, right foot] Onset: 08-29-2020 08-29-2020 Episodic Administrative/social admission (1 source) Other reduced mobility; Translations: [Other reduced mobility] Onset: 03-23-2023 Episodic Deficiency and other anemia (6 sources) Iron deficiency anemia secondary to inadequate dietary iron intake; Translations: [Other iron deficiency anemias] Onset: 06-16-2018 06-16-2018 Episodic Deficiency and other anemia (6 sources) Megaloblastic anemia due to vitamin B>12< deficiency; Translations: [Other megaloblastic anemias, not elsewhere classified] Onset: 12-30-2019 12-30-2019 Episodic Diabetes mellitus without complication (2 sources) Hyperglycemia, unspecified; Translations: [Hyperglycemia, unspecified] Onset: 09-03-2022 Episodic Disorders of lipid metabolism (20 sources) Hyperlipidemia; Translations: [Other and unspecified hyperlipidemia] Onset: 12-07-2017 Resolved: 01-15-2023 05-03-2020 Chronic Esophageal disorders (20 sources) Gastro-esophageal reflux disease without esophagitis; 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] Onset: 08-06-2021 Resolved: 01-15-2023 Chronic Malaise and fatigue (3 sources) Asthenia; Translations: [Weakness] Onset: 11-13-2022 12-05-2022 Episodic Nausea and vomiting (1 source) Nausea Onset: 05-21-2022 Resolved: 05-21-2022 Episodic Open wounds of extremities (6 sources) Open wound, heel; Translations: [Unspecified open wound, left foot, initial encounter] Onset: 11-08-2019 11-08-2019 Episodic Other aftercare (1 source) FPC (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; Translations: [ROD PLACER USE ORAL HYPOGLYCEMIC DX] Onset: 12-22-2022 Episodic Other aftercare (1 source) Encounter for other orthopedic aftercare; Translations: [ENC FOR OTHER ORTHOPEDIC AFTERCARE] Onset: 10-15-2022 Episodic Other circulatory disease (8 sources) Orthostatic hypotension; Translations: [Orthostatic hypotension] Onset: 08-29-2020 08-29-2020 Episodic Other connective tissue disease (1 source) Unspecified rotator cuff tear or rupture of unspecified shoulder, not specified as traumatic; Translations: [Unspecified rotator cuff tear or rupture of unspecified shoulder, not specified as traumatic] Onset: 12-29-2017 Episodic Other connective tissue disease (1 source) Disorder of rotator cuff; Translations: [Rotator cuff syndrome of shoulder and allied disorders] Onset: 12-10-2004 08-07-2016 Episodic Other connective tissue disease (6 sources) Full thickness rotator cuff tear; Translations: [Complete rotator cuff tear or rupture of right shoulder, not specified as traumatic] Onset: 08-02-2018 08-02-2018 Episodic Other connective tissue disease (3 sources) Recurrent falls ; Translations: [Repeated falls] Onset: 08-29-2020 08-29-2020 Episodic Other connective tissue disease (3 sources) History of cervical spine fusion; Translations: [Arthrodesis status] Onset: 10-10-2021 10-10-2021 Episodic Other connective tissue disease (1 source) Pain in right foot Onset: 08-27-2021 Resolved: 08-27-2021 Episodic Other connective tissue disease (2 sources) Arthrodesis status; Translations: [ARTHRODESIS STATUS] Onset: 10-15-2022 Episodic Other gastrointestinal disorders (6 sources) Dysphagia; Translations: [Dysphagia, unspecified] Onset: 04-13-2019 04-13-2019 Episodic Other gastrointestinal disorders (3 sources) Full incontinence of feces; Translations: [Full incontinence of feces] Onset: 10-15-2022 Episodic Other injuries and conditions due to external causes (1 source) History of falling Onset: 10-23-2021 Resolved: 10-23-2021 Episodic Other nervous system disorders (3 sources) Multifactorial gait problem; Translations: [Other abnormalities of gait and mobility] Onset: 08-29-2020 08-29-2020 Episodic Other non-traumatic joint disorders (1 source) Pain in right knee; Translations: [Pain in right knee] Onset: 07-01-2017 Episodic Other nutritional; endocrine; and metabolic disorders (1 source) Body mass index (BMI) 26.0-26.9, adult; Translations: [BODY MASS INDEX BMI 26.0-26.9 ADULT] Onset: 11-13-2022 Episodic Pneumonia (except that caused by tuberculosis or sexually transmitted disease) (4 sources) Pneumonia, unspecified organism; Translations: [PNEUMONIA UNSPECIFIED ORGANISM] Onset: 11-05-2022 Episodic Residual codes; unclassified (6 sources) Tobacco use and exposure - finding; Translations: [Tobacco use] Onset: 04-24-2020 04-24-2020 Episodic Residual codes; unclassified (1 source) Other specified health status; Translations: [Other specified health status] Onset: 03-23-2023 Episodic Screening and history of mental health and substance abuse codes (1 source) Personal history of nicotine dependence; Translations: [PERSONAL HISTORY OF NICOTINE DEPEND] Onset: 12-22-2022 Episodic Sprains and strains (6 sources) Neck sprain; Translations: [Sprain of joints and ligaments of unspecified parts of neck, initial encounter] Onset: 03-06-2004 03-06-2004 Episodic Unclassified (1 source) History of COVID-19 Z86.16 Results Test Name Value Interpretation Reference Range Facility C Urineon 10-23-2023 Bacteria identified Cx Nom (U) Microbiology PROCEDURE: Urine Culture [R1] SOURCE: U Cath BODY SITE: COLLECTED DATE/TIME: 10/21/2023 12:49 EST RECEIVED DATE/TIME: 10/21/2023 18:45 EST START DATE/TIME: 10/21/2023 18:45 EST FREE TEXT SOURCE: WALTER YBARRA, Fidel IBARRA MD, Fidel Hinkle FINAL REPORTS Final Report [] Verified Date/Time: 10/23/2023 09:51 EST >100,000 cfu/ml Citrobacter braakii >100,000 cfu/ml Providencia rettgeri >100,000 cfu/ml Klebsiella oxytoca SUSCEPTIBILITY RESULTS LEGEND: S=Susceptible, N/R=Not Reported, Blank=Data not available, or drug not advisable or tested, I=Intermediate, ESBL=Extended spectrum beta-lactamase, R=Resistant, TFG=Thymidine-dependent strain, BINH=Beta-lactamase positive, SABI=mcg/m;(mg/L), S*=Predicted susceptible interp, R*=Predicted resistant interp Citbra Proret Kleoxy Antibiotic SABI Dilutn SABI Interp SABI Dilutn SABI Interp SABI Dilutn SABI Interp Amikacin <=16 S <=16 S <=16 S Ampicillin >16 R <=8 R* 16 R* Ampicillin/ <=8/4 R* <=8/4 S <=8/4 S Sulbactam Aztreonam <=4 S <=4 S <=4 S Cefazolin >16 R <=2 R* <=2 S Cefepime <=2 S <=2 S <=2 S Cefoxitin >16 R <=8 S <=8 S Ceftazidime <=1 S <=1 S Ceftazidime/ <=8 S <=8 S Avibactam Ceftriaxone <=1 S <=1 S <=1 S Ciprofloxacin <=1 S <=1 S <=1 S Ertapenem <=0.5 S <=0.5 S <=0.5 S Gentamicin <=4 S <=4 S <=4 S Levofloxacin <=2 S <=2 S <=2 S Meropenem <=1 S <=1 S <=1 S Nitrofurantoin <=32 S >64 R 64 I Piperacillin/ <=16 S <=16 S <=16 S Tazobactam Tetracycline <=4 S >8 R >8 R Tigecycline <=2 S <=2 R* <=2 S Tobramycin <=4 S <=4 S <=4 S Trimethoprim/ <=2/38 S <=2/38 S <=2/38 S Sulfa Performing Locations R1: This test was performed at: [facility], [address] [place] [address], [facility] , , Normal [facility] Comment on above: Performed By: #### [id number] ####[facility] [id number] [place] [address] Ambulatory Visit Summaryon 0 10-22-2023 Ambulatory Visit Summary ALISIA CORREA :1960 Visit Date:10/21/2023 Ambulatory Visit Instructions Your Diagnosis Recurrent UTI BPH with urinary obstruction Your Care Team Attending Physician - LYN MACE PA-C Primary Care Physician - ELLEN CRABTREE DO This Is Your Medications List HYDROmorphone (hydromorphone 2 mg Tab) acarbose (acarbose 25 mg oral tablet) atorvastatin (atorvastatin 10 mg Tab) benzonatate (benzonatate 100 mg Cap) carbidopa-levodopa (carbidopa-levodopa 25 mg-100 mg ER Tab) diclofenac (diclofenac sodium 75 mg Oral EC Tab) duloxetine (duloxetine 60 mg oral delayed release capsule) ezetimibe (ezetimibe 10 mg Tab) fludrocortisone (fludrocortisone 0.1 mg Tab) midodrine (midodrine 5 mg Tab) montelukast (montelukast 10 mg Tab) nitrofurantoin (Macrobid 100 mg Cap) ondansetron (ondansetron 4 mg Tab) pregabalin (pregabalin 300 mg Cap) tolterodine (tolterodine 4 mg Cap-ER) topiramate (topiramate 100 mg Tab) venlafaxine (venlafaxine 37.5 mg Cap-ER) Procedures Performed Insertion of suprapubic catheter using ultrasound (US) guidance (01/22/2023), Procedure on prostate (03/08/2019), TURP - Transurethral resection of prostate (03/08/2019), Injection of therapeutic substance into bladder wall (01/25/2019), Transurethral insertion of prostatic urethral lift implant (01/26/2018), Cystoscopy (12/01/2017), Urodynamics (10/28/2017), Colonoscopy, Gastric bypass, Knee replacement, Shoulder, Tonsillectomy. What to do next Scheduled Follow-Up Appointments Thursday 11:00 AM EST Where: [facility] Ambulatory Visit Summaryon 1 11-15-2022 Ambulatory Visit Summary ALISIA CORREA Kenny :1960 Visit Date:09/15/2023 Ambulatory Visit Instructions Your Care Team Attending Physician - WALTER YBARRA, Fidel Hinkle Primary Care Physician - ELLEN CRABTREE DO This Is Your Medications List HYDROmorphone (hydromorphone 2 mg Tab) acarbose (acarbose 25 mg oral tablet) atorvastatin (atorvastatin 10 mg Tab) benzonatate (benzonatate 100 mg Cap) carbidopa-levodopa (carbidopa-levodopa 25 mg-100 mg ER Tab) diclofenac (diclofenac sodium 75 mg Oral EC Tab) duloxetine (duloxetine 60 mg oral delayed release capsule) ezetimibe (ezetimibe 10 mg Tab) fludrocortisone (fludrocortisone 0.1 mg Tab) midodrine (midodrine 5 mg Tab) montelukast (montelukast 10 mg Tab) nitrofurantoin (Macrobid 100 mg Cap) ondansetron (ondansetron 4 mg Tab) pregabalin (pregabalin 300 mg Cap) tolterodine (tolterodine 4 mg Cap-ER) topiramate (topiramate 100 mg Tab) venlafaxine (venlafaxine 37.5 mg Cap-ER) Procedures Performed Insertion of suprapubic catheter using ultrasound (US) guidance (01/22/2023), Procedure on prostate (03/08/2019), TURP - Transurethral resection of prostate (03/08/2019), Injection of therapeutic substance into bladder wall (01/25/2019), Transurethral insertion of prostatic urethral lift implant (01/26/2018), Cystoscopy (12/01/2017), Urodynamics (10/28/2017), Colonoscopy, Gastric bypass, Knee replacement, Shoulder, Tonsillectomy. What to do next Scheduled Follow-Up Appointments Thursday 11:00 AM EST Where: [facility] Lab Reportson 08-28-2023 Lab Reports [id number]#1.00TIFF [facility] Formson 08-27-2023 Forms [id number]#1.00TIFF [facility] RAD - CT Reporton 08-25-2023 RAD - CT Report [id number]#1.00TIFF [facility] RAD - MISCon 08-18-2023 RAD - MISC [id number]#1.00TIFF Normal [facility] Physician Orderon 08-03-2023 Physician Order [id number]#1.00TIFF Normal [facility] Physician Orderon 07-27-2023 Physician Order [id number]#1.00TIFF Normal [facility] C Urineon 07-21-2023 Bacteria identified Cx Nom (U) Microbiology PROCEDURE: Urine Culture [R1] SOURCE: U Suprapubic BODY SITE: COLLECTED DATE/TIME: 07/17/2023 12:11 EDT RECEIVED DATE/TIME: 07/17/2023 19:37 EDT START DATE/TIME: 07/17/2023 19:37 EDT FREE TEXT SOURCE: GURMEET IBARRA MD, Fidel IBARRA MD, Fidel Hinkle FINAL REPORTS Final Report [] Verified Date/Time: 07/21/2023 11:05 EDT 10,000 cfu/ml Pseudomonas aeruginosa 5,000 cfu/ml Methicillin-Resistant Staphylococcus aureus MRSA Called to [facility] 07/21/2023 11:05:09 by SURAJ SUSCEPTIBILITY RESULTS LEGEND: S=Susceptible, N/R=Not Reported, Blank=Data not available, or drug not advisable or tested, I=Intermediate, ESBL=Extended spectrum beta-lactamase, R=Resistant, TFG=Thymidine-dependent strain, BINH=Beta-lactamase positive, SABI=mcg/m;(mg/L), S*=Predicted susceptible interp, R*=Predicted resistant interp PA MRSA Antibiotic SABI Dilutn SABI Interp SABI Dilutn SABI Interp Amikacin <=16 S Amoxicillin/ >4/2 R* Clavulanate Ampicillin >8 R* Ampicillin/ 16/8 R* Sulbactam Aztreonam <=4 S Cefazolin >16 R* Cefepime <=2 S Ceftaroline 1 S Ceftazidime 4 S Ceftazidime/ <=8 S Avibactam Ciprofloxacin <=1 S >2 R Daptomycin <=1 S Gentamicin 8 I <=4 S Levofloxacin <=2 S >4 R Linezolid <=2 S Meropenem <=1 S Nitrofurantoin <=32 S Oxacillin >2 R Penicillin >8 R* Piperacillin/ <=16 S Tazobactam Rifampin <=1 S Tetracycline <=4 S Tobramycin <=4 S Trimethoprim/ >2/38 R Sulfa Vancomycin 1 S Performing Locations R1: This test was performed at: [facility], [address] [place] [address], [address]- , , [facility] Comment on above: Performed By: #### 2 [id number] #### [facility] [address] [place] [address] Provider Letteron 07-13-2023 Provider Letter (Inserted Image. Nette ble to display) July 13, 2023 ALISIA CORREA [address] [place] [address] : 1960 Dear Mr. Correa, We have been trying to reach you with no success. It is important that you return our call regarding your recent injections upon receiving this letter. Also, at the time of your call, please provide us with your current information. Please call our office at [phone]. Thank you for your prompt attention to this matter. Sincerely, [facility] [address] [place] [address] [place] [address] Normal [facility] Lab Reportson 07-08-2023 Lab Reports [id number]#1.00CD:127 Normal [facility] Gent Levelon 07-02-2023 GENTAMICIN 8.8 microgram/mL Normal 0.5-10.0 [facility] Comment on above: Performed By: #### 2 [id number] ####[facility] [address] [place] [address] Physician Orderon 07-02-2023 Physician Order [id number]#1.00CD:127 Normal [facility] Physician Order [id number]#1.00CD:127 Normal [facility] Lab Reportson 07-01-2023 Lab Reports [id number]#1.00CD:127 Normal [facility] Physician Orderon 06-29-2023 Physician Order [id number]#1.00CD:127 Normal [facility] C Urineon 06-21-2023 Bacteria identified Cx Nom (U) Microbiology PROCEDURE: Urine Culture [R1] SOURCE: U Cath BODY SITE: COLLECTED DATE/TIME: 06/19/2023 12:08 EDT RECEIVED DATE/TIME: 06/19/2023 18:55 EDT START DATE/TIME: 06/19/2023 18:55 EDT FREE TEXT SOURCE: WALTER YBARRA, Fidel IBARRA MD, Fidel Hinkle FINAL REPORTS Final Report [] Verified Date/Time: 06/21/2023 08:47 EDT 50,000 cfu/ml Pseudomonas aeruginosa SUSCEPTIBILITY RESULTS LEGEND: S=Susceptible, N/R=Not Reported, Blank=Data not available, or drug not advisable or tested, I=Intermediate, ESBL=Extended spectrum beta-lactamase, R=Resistant, TFG=Thymidine-dependent strain, BINH=Beta-lactamase positive, SABI=mcg/m;(mg/L), S*=Predicted susceptible interp, R*=Predicted resistant interp PA Antibiotic SABI Dilutn SABI Interp Amikacin <=16 S Aztreonam <=4 S Cefepime <=2 S Ceftazidime <=1 S Ceftazidime/ <=8 S Avibactam Ciprofloxacin <=1 S Gentamicin <=4 S Levofloxacin <=2 S Meropenem <=1 S Piperacillin/ <=16 S Tazobactam Tobramycin <=4 S Performing Locations R1: This test was performed at: [facility], [address] [place] [address], [facility]- , , [facility] Comment on above: Performed By: #### 2 [id number] #### [facility] [address] [place] [address] Ambulatory Visit Summaryon 0 06-19-2023 Ambulatory Visit Summary ALISIA CORREA :1960 Visit Date:06/19/2023 Ambulatory Visit Instructions Your Diagnosis Recurrent UTI Your Care Team Attending Physician - WALTER YBARRA, Fidel Hinkle Primary Care Physician - ELLEN CRABTREE DO This Is Your Medications List HYDROmorphone (hydromorphone 2 mg Tab) acarbose (acarbose 25 mg oral tablet) atorvastatin (atorvastatin 10 mg Tab) benzonatate (benzonatate 100 mg Cap) carbidopa-levodopa (carbidopa-levodopa 25 mg-100 mg ER Tab) cefdinir (cefdinir 300 mg Cap) diclofenac (diclofenac sodium 75 mg Oral EC Tab) duloxetine (duloxetine 60 mg oral delayed release capsule) ezetimibe (ezetimibe 10 mg Tab) fludrocortisone (fludrocortisone 0.1 mg Tab) midodrine (midodrine 5 mg Tab) montelukast (montelukast 10 mg Tab) nitrofurantoin (Macrobid 100 mg Cap) ondansetron (ondansetron 4 mg Tab) pregabalin (pregabalin 300 mg Cap) tolterodine (tolterodine 4 mg Cap-ER) topiramate (topiramate 100 mg Tab) venlafaxine (venlafaxine 37.5 mg Cap-ER) Procedures Performed Insertion of suprapubic catheter using ultrasound (US) guidance (01/22/2023), Procedure on prostate (03/08/2019), TURP - Transurethral resection of prostate (03/08/2019), Injection of therapeutic substance into bladder wall (01/25/2019), Transurethral insertion of prostatic urethral lift implant (01/26/2018), Cystoscopy (12/01/2017), Urodynamics (10/28/2017), Colonoscopy, Gastric bypass, Knee replacement, Shoulder, Tonsillectomy. What to do next Scheduled Follow-Up Appointments Thursday 11:00 AM EDT Where: [facility] Lab Reportson 06-08-2023 Lab Reports [id number]#1.00CD:127 [facility] Lab Reports [id number]#1.00CD:127 [facility] Lab Reports [id number]#1.00CD:127 [facility] Formson 05-29-2023 Forms [id number]#1.00CD:127 Normal [facility] C Urineon 05-28-2023 Bacteria identified Cx Nom (U) Microbiology PROCEDURE: Urine Culture [R1] SOURCE: U Suprapubic BODY SITE: COLLECTED DATE/TIME: 05/25/2023 11:26 EDT RECEIVED DATE/TIME: 05/25/2023 18:47 EDT START DATE/TIME: 05/25/2023 18:47 EDT FREE TEXT SOURCE: WALTER YBARRA, Fidel IBARRA MD, Fidel Hinkle FINAL REPORTS Final Report [] Verified Date/Time: 05/28/2023 08:28 EDT 20,000 cfu/ml Enterobacter aerogenes 10,000 cfu/ml Pseudomonas aeruginosa SUSCEPTIBILITY RESULTS LEGEND: S=Susceptible, N/R=Not Reported, Blank=Data not available, or drug not advisable or tested, I=Intermediate, ESBL=Extended spectrum beta-lactamase, R=Resistant, TFG=Thymidine-dependent strain, BINH=Beta-lactamase positive, SABI=mcg/m;(mg/L), S*=Predicted susceptible interp, R*=Predicted resistant interp [place] PA Antibiotic SABI Dilutn SABI Interp SABI Dilutn SABI Interp Amikacin <=16 S <=16 S Ampicillin >16 R Ampicillin/ >16/8 R Sulbactam Aztreonam 8 S <=4 S Cefazolin >16 R Cefepime <=2 S <=2 S Cefoxitin >16 R Ceftazidime >16 R <=1 S Ceftazidime/ <=8 S <=8 S Avibactam Ceftriaxone 32 R Ciprofloxacin <=1 S <=1 S Ertapenem <=0.5 S Gentamicin <=4 S <=4 S Levofloxacin <=2 S <=2 S Meropenem <=1 S <=1 S Nitrofurantoin 64 I Piperacillin/ <=16 S <=16 S Tazobactam Tetracycline <=4 S Tigecycline <=2 S Tobramycin <=4 S <=4 S Trimethoprim/ <=2/38 S Sulfa Performing Locations R1: This test was performed at: [facility], [address] [place] [address], [id number]- , , Normal [facility] Comment on above: Performed By: #### 2 [id number] #### [facility] [address] [place] [address] ECG 12-Leadon 05-13-2023 ECG 12-Lead [id number]#1.00CD:127 Normal [facility] RAD - Ultrasound Reporton RAD - Ultrasound Report [id number]#1.00CD:127 Normal [facility] RAD - Ultrasound Report [id number]#1.00CD:127 Normal [facility] Basic Metabolic Panelon 03-19 Anion gap [Moles/Vol] 10.0 mmol/L Normal 6.0-15.0 [facility] Comment on above: Performed By: #### C BC, BMP #### [facility] [address] [place] [address] [facility] [[email or web address]] Calcium [Mass/Vol] 8.6 mg/dL Normal 8.6-10.3 [facility] Comment on above: Performed By: #### C BC, BMP #### [facility] [address] Chloride [Moles/Vol] 107 mmol/L Normal 98-107 [facility] Comment on above: Performed By: #### C BC, BMP #### [facility] [address] CO2 [Moles/Vol] 26.7 mmol/L Normal 21.0-31.0 [facility] Comment on above: Performed By: #### C BC, BMP #### [address] Creatinine [Mass/Vol] 0.74 mg/dL Normal 0.70-1.30 [facility] Comment on above: Performed By: #### C BC, BMP #### [address] Creatinine Clr Calc Pharmacy 114.00 Normal [facility] Comment on above: Result Comment: PERF ORMED BY: [place] [address] PATHOLOGIST CLINICAL AUDIOLOGIST SIVAKUMAR PALACIOS M.D. Performed By: #### C BC, BMP #### [address] GFR/1.73 sq M.predicted MDRD (S/P/Bld) [Vol rate/Area] mL/min/{1.73_m2} Normal [facility] Comment on above: Performed By: #### C BC, BMP #### [address] Glucose [Mass/Vol] 76 mg/dL Normal 70-100 [facility] Comment on above: Result Comment: Bruno Glucose Reference Range is dependent on time and content of last meal. Glucose of more than 200 mg/dL in a nonstressed, ambulatory subject supports the diagnosis of Diabetes Mellitus. ADA recommended reference range Performed By: #### C BC, BMP #### [address] Potassium [Moles/Vol] 3.7 mmol/L Normal 3.5-5.1 [facility] Comment on above: Performed By: #### C BC, BMP #### [address] Sodium [Moles/Vol] 140 mmol/L Normal 136-145 [facility] Comment on above: Performed By: #### C BC, BMP #### [address] Urea nitrogen [Mass/Vol] 17 mg/dL Normal 7-25 [facility] Comment on above: Performed By: #### C BC, BMP #### [address] Complete Blood Count Auto Di ffon 04-01-2023 Basophils (Bld) [#/Vol] 0.0 10*3/uL Normal 0.0-0.2 [facility] Comment on above: Result Comment: PERF ORMED BY: [place] [address] PATHOLOGIST CLINICAL AUDIOLOGIST SIVAKUMAR PALACIOS M.D. Performed By: #### C BC, BMP #### [address] Basophils/100 WBC (Bld) 0.6 % Normal . [facility] Comment on above: Performed By: #### C MAREN, BMP #### [address] Eosinophils (Bld) [#/Vol] 0.2 10*3/uL Normal 0.0-0.45 [facility] Comment on above: Performed By: #### C BC, BMP #### [address] Eosinophils/100 WBC (Bld) 4.5 % Normal . [facility] Comment on above: Performed By: #### C BC, BMP #### [address] Erythrocyte distribution width (RBC) [Ratio] 14.3 % Normal 12.0-14.8 [facility] Comment on above: Performed By: #### C BC, BMP #### [address] [address] [place] Hematocrit (Bld) [Volume fraction] 36.5 % Low 38.8-50.0 [facility] Comment on above: Performed By: #### C BC, BMP #### [address] Hemoglobin (Bld) [Mass/Vol] 11.9 g/dL Low 13.0-17.0 [facility] Comment on above: Performed By: #### C BC, BMP #### [address] Lymphocytes (Bld) [#/Vol] 2.3 10*3/uL Normal 1.00-4.8 [facility] Comment on above: Performed By: #### C BC, BMP #### [address] Lymphocytes/100 WBC (Bld) 51.2 % Normal . [facility] Comment on above: Performed By: #### C BC, BMP #### [address] MCH (RBC) [Entitic mass] 28.2 pg Normal 27.5-35.2 [facility] Comment on above: Performed By: #### C BC, BMP #### [address] MCV (RBC) [Entitic vol] 86.8 fL Normal 83.5-101 [facility] Comment on above: Performed By: #### C BC, BMP #### [address] Mean Corpuscular HGB Conc 32.5 g/dL Normal 32.5-35.6 [facility] Comment on above: Performed By: #### C BC, BMP #### [address] Monocytes (Bld) [#/Vol] 0.3 10*3/uL Normal 0.0-0.8 [facility] Comment on above: Performed By: #### C BC, BMP #### [address] [place] [address] [place] Monocytes/100 WBC (Bld) 7.4 % Normal . [facility] Comment on above: Performed By: #### C BC, BMP #### [facility] [address] Neutrophils (Bld) [#/Vol] 1.6 10*3/uL Low 1.8-7.7 [facility] Comment on above: Performed By: #### C BC, BMP #### [address] Neutrophils/100 WBC (Bld) 36.3 % Normal . [facility] Comment on above: Performed By: #### C MAREN, BMP #### [address] NRBC% 0.3 /100{WBC} Normal 0-0.5 [facility] Comment on above: Performed By: #### C MAREN, BMP #### [address] Platelet mean volume (Bld) [Entitic vol] 10.7 fL High 6.6-10.1 [facility] Comment on above: Performed By: #### C MAREN, BMP #### [address] Platelets (Bld) [#/Vol] 165 10*3/uL Normal 150-450 [facility] Comment on above: Performed By: #### C BC, BMP #### [address] RBC (Bld) [#/Vol] 4.21 10*6/uL Normal 3.90-5.60 [facility] Comment on above: Performed By: #### C BC, BMP #### [address] WBC (Bld) [#/Vol] 4.5 10*3/uL Normal 4.1-10.5 [facility] Comment on above: Performed By: #### C BC, BMP #### [address] [address] [place] Dipstick and Microscopicon 0 03-31-2023 Appearance (U) Cloudy Critically abnormal Clear [facility] Comment on above: Order Comment: Name Collection Type:: Carrington Catheter Performed By: #### A DDONUAPLUS, CUU #### [facility] [address] [place] [address] [place] Bacteria,Urine 1+ High None Seen [facility] Comment on above: Order Comment: Name Collection Type:: Carrington Catheter Performed By: #### A DDONUAPLUS, CUU #### [facility] [address] [place] [address] [place] Bilirubin,Urine Negative Normal Negative [facility] Comment on above: Order Comment: Name Collection Type:: Carrington Catheter Performed By: #### A DDONUAPLUS, CUU #### [facility] [address] [place] [address] Color (U) [place] Critically abnormal Yellow [facility] Comment on above: Order Comment: Name Collection Type:: Carrington Catheter Performed By: #### A DDONUAPLUS, CUU #### [facility] [address] [place] [address] [place] Glucose Ql (U) Normal Normal Normal [facility] Comment on above: Order Comment: Name Collection Type:: Carrington Catheter Performed By: #### A DDONUAPLUS, CUU #### [facility] [address] [place] [address] [place] Hyaline Casts,Urine 0-8 Normal 0-8 [facility] Comment on above: Order Comment: Name Collection Type:: Carrington Catheter Result Comment: PERF ORMED BY: [place] [address] PATHOLOGIST CLINICAL AUDIOLOGIST SIVAKUMAR PALACIOS M.D. Performed By: #### A DDONUAPLUS, CUU #### [facility] [address] [place] [address] [place] Ketones Ql (U) Trace High Negative [facility] Comment on above: Order Comment: Name Collection Type:: Carrington Catheter Performed By: #### A DDONUAPLUS, CUU #### [facility] [address] [place] [address] Leukocyte esterase Test strip Ql (U) 3+ High Negative [facility] Comment on above: Order Comment: Name Collection Type:: Carrington Catheter Performed By: #### A DDONUAPLUS, CUU #### [place] [address] [place] Nitrite,Urine Positive High Negative [facility] Comment on above: Order Comment: Name Collection Type:: Carrington Catheter Performed By: #### A DDONUAPLUS, CUU #### [address] Occult Blood,Urine 3+ High Negative [facility] Comment on above: Order Comment: Name Collection Type:: Carrington Catheter Result Comment: PERF ORMED BY: [place] [address] PATHOLOGIST CLINICAL AUDIOLOGIST SIVAKUMAR PALACIOS M.D. Performed By: #### A BLESSING, CUU #### [address] pH (U) 6.0 [pH] Normal 5.0-9.0 [facility] Comment on above: Order Comment: Name Collection Type:: Carrington Catheter Performed By: #### A DDONUAPLUS, CUU #### [address] Protein (U) [Mass/Vol] 300 mg/dL High Negative [facility] Comment on above: Order Comment: Name Collection Type:: Carrington Catheter Performed By: #### A DDONUAPLUS, CUU #### [place] [address] [place] RBC,Urine Innumerable High 0-4 [facility] Comment on above: Order Comment: Name Collection Type:: Carrington Catheter Performed By: #### A DDONUAPLUS, CUU #### [address] Specificy [place],Urine 1.017 Normal 1.001-1.03 0 [facility] Comment on above: Order Comment: Name Collection Type:: Carrington Catheter Performed By: #### A DDONUAPLUS, CUU #### [facility] [address] [place] [address] Squamous Epithelial Cell,Urine None Seen Normal 0-2 [facility] Comment on above: Order Comment: Name Collection Type:: Carrington Catheter Performed By: #### A DDONUAPLUS, CUU #### [facility] [address] [place] [address] Urobilinogen,Urine Normal Normal Normal [facility] Comment on above: Order Comment: Name Collection Type:: Carrington Catheter Performed By: #### A DDONUAPLUS, CUU #### [address] WBC,Urine Innumerable High 0-4 [facility] Comment on above: Order Comment: Name Collection Type:: Carrington Catheter Performed By: #### A DDONUAPLUS, CUU #### [address] Urine Cultureon 03-31-2023 Bacteria identified Cx Nom (U) ORGANISM: Klebsiella aerogenes (O:KLEAER) [place] Count 20,000 ORGANISM: Pseudomonas aeruginosa (O:PSEAER) [place] Count 50,000 Aerobic SABI Charge (NMIC56) SUSCEPTIBILITY ORGANISM: O:KLEAER ANTIBIOTIC INTERPRETATION SABI Amikacin S <16 Aztreonam I 8 Cefepime S <2 Ceftazidime R >16 Ceftazidime/Avibactam S <4 Ceftriaxone R 32 Cefuroxime R >16 Ciprofloxacin S <0.25 Ertapenem S <0.5 Gentamicin S <2 Levofloxacin S <0.5 Meropenem S <1 Meropenem/Vaborbactam S <2 Nitrofurantoin I 64 Piperacillin/Tazobactam I 32 Tetracycline S <4 Tigecycline S <2 Tobramycin S <2 Trimethoprim/Sulfamethoxazole S <0.5 Aerobic SABI Charge (NMIC56) SUSCEPTIBILITY ORGANISM: O:PSEAER ANTIBIOTIC INTERPRETATION SABI Amikacin S <16 Aztreonam IB <4 Cefepime S <2 Ceftazidime IB 4 Ceftazidime/Avibactam S <4 Ceftolozane/Tazobactam S <2 Ciprofloxacin S <0.25 Gentamicin S 4 Levofloxacin S <0.5 Meropenem S <1 Piperacillin/Tazobactam IB <8 Tobramycin S <2 S = SUSCEPTIBLE I = INTERMEDIATE R = RESISTANT BLANK = DATA NOT AVAILABLE, OR DRUG NOT ADVISABLE OR TESTED R* = RESISTANCE DUE TO EXTENDED SPECTRUM BETA-LACTAMASES ESBL = EXTENDED SPECTRUM BETA-LACTAMASE TFG = THYMIDINE-DEPENDENT STRAIN BINH = BETA-LACTAMASE POSITIVE IB = INDUCIBLE BETA-LACTAMASE. APPEARS IN PLACE OF 'S' WITH SPECIES KNOWN TO POSSESS INDUCIBLE BETA-LACTAMASES. POTENTIALLY THEY MAY BECOME RESISTANT TO ALL B-LACTAM DRUGS. PERFORMED BY: [place] [address] PATHOLOGIST CLINICAL AUDIOLOGIST SIVAKUMAR PALACIOS M.D. [facility] Comment on above: Performed By: #### A TRENT FUNK #### [address] US venous duplex [facility] US venous duplex [facility] [place] [address] [place] [address] Ultrasound Report Signed Patient: Alisia Correa MR#: [id number] : 1960 Acct:[id number] Age/Sex: 62 / M ADM Date: 03/23/23 Loc: Room: [address] [place] [address] Type: ADM IN Attending Dr: Steven Gonzales MD Ordering Provider: Lila Cm APRN Date of Service: 03/27/23 US/US venous duplex LE LT: PAIN Copies to: FARRAH Beckford MD LEFT LOWER EXTREMITY VENOUS DUPLEX INDICATION: Left leg pain Unilateral left lower extremity venous duplex Doppler study was obtained utilizing B-mode, color- flow and spectral Doppler. FINDINGS: The left common femoral, femoral, and popliteal veins showed adequate compressibility, color-flow and augmentation. The left posterior tibial and peroneal veins were compressible, as well as proximal greater saphenous vein. The contralateral right common femoral vein was compressible with color-flow and augmentation. US/US venous duplex LE LT IMPRESSION: NO EVIDENCE OF DEEP VENOUS THROMBOSIS IN THE LEFT LOWER EXTREMITY. NO SUPERFICIAL THROMBOPHLEBITIS WAS NOTED. Impression dictated by: Gerardo Coulter M.D.03/28/2023 9:37 AM Dictation Location: [place] [address] Tech: Lyn Shaq Transcribed By: PENELOPE 03/28/23936 Dictated By: Gerardo Coulter MD 03/28/23936 Signed By: 03/28/23936 Normal [facility] Basic Metabolic Panelon 06- Anion gap [Moles/Vol] 10.2 mmol/L Normal 6.0-15.0 [facility] Comment on above: Performed By: #### B MP #### [address] Calcium [Mass/Vol] 8.3 mg/dL Low 8.6-10.3 [facility] Comment on above: Performed By: #### B MP #### [facility] [address] [place] [address] Chloride [Moles/Vol] 109 mmol/L High 98-107 [facility] Comment on above: Performed By: #### B MP #### [facility] [address] [place] [id number] [place] CO2 [Moles/Vol] 24.4 mmol/L Normal 21.0-31.0 [facility] Comment on above: Performed By: #### B MP #### [address] Creatinine [Mass/Vol] 0.65 mg/dL Low 0.70-1.30 [facility] Comment on above: Performed By: #### B MP #### [facility] [address] [place] [address] [place] Creatinine Clr Calc Pharmacy 118.55 Normal [facility] Comment on above: Result Comment: PERF ORMED BY: [address] [place] [address] PATHOLOGIST CLINICAL AUDIOLOGIST SIVAKUMAR PALACIOS M.D. Performed By: #### B MP #### [place] [address] [place] GFR/1.73 sq M.predicted MDRD (S/P/Bld) [Vol rate/Area] mL/min/{1.73_m2} Normal [facility] Comment on above: Performed By: #### B MP #### [address] Glucose [Mass/Vol] 79 mg/dL Normal 70-100 [facility] Comment on above: Result Comment: Bruno om Glucose Reference Range is dependent on time and content of last meal. Glucose of more than 200 mg/dL in a nonstressed, ambulatory subject supports the diagnosis of Diabetes Mellitus. ADA recommended reference range Performed By: #### B MP #### [place] [address] [place] Potassium [Moles/Vol] 3.6 mmol/L Normal 3.5-5.1 [facility] Comment on above: Performed By: #### B MP #### [place] [address] [place] Sodium [Moles/Vol] 140 mmol/L Normal 136-145 [facility] Comment on above: Performed By: #### B MP #### [place] [address] [place] Urea nitrogen [Mass/Vol] 15 mg/dL Normal 7-25 [facility] Comment on above: Performed By: #### B MP #### [place] [address] [place] Glucose Poct Glucometerson 0 03-25-2023 Glucose [Mass/Vol] 75 mg/dL Normal [facility] Comment on above: Result Comment: Bruno om Glucose Reference Range is dependent on time and content of last meal. Glucose of more than 200 mg/dL in a nonstressed, ambulatory subject supports the diagnosis of Diabetes Mellitus. PERFORMED BY: [place] [address] PATHOLOGIST CLINICAL AUDIOLOGIST SIVAKUMAR PALACIOS M.D. Performed By: #### B MP #### [address] Comprehensive Metabolic Pane lisy 03-24-2023 Albumin [Mass/Vol] 3.1 g/dL Low 3.5-5.7 [facility] Comment on above: Performed By: #### B MP #### [address] Albumin/Globulin [Mass ratio] 1.1 {ratio} Normal [facility] Comment on above: Performed By: #### B MP #### [address] ALP [Catalytic activity/Vol] 109 U/L High 34-104 [facility] Comment on above: Performed By: #### B MP #### [address] ALT [Catalytic activity/Vol] U/L Low 7-52 [facility] Comment on above: Performed By: #### B MP #### [address] Anion gap [Moles/Vol] 9.2 mmol/L Normal 6.0-15.0 [facility] Comment on above: Performed By: #### B MP #### [address] AST [Catalytic activity/Vol] 5 U/L Low 13-39 [facility] Comment on above: Performed By: #### B MP #### [address] Bilirubin [Mass/Vol] 0.3 mg/dL Normal 0.3-1.0 [facility] Comment on above: Performed By: #### B MP #### [address] Calcium [Mass/Vol] 8.5 mg/dL Low 8.6-10.3 [facility] Comment on above: Performed By: #### B MP #### [facility] [address] [place] [address] [place] Chloride [Moles/Vol] 110 mmol/L High 98-107 [facility] Comment on above: Performed By: #### B MP #### [facility] [address] CO2 [Moles/Vol] 24.2 mmol/L Normal 21.0-31.0 [facility] Comment on above: Performed By: #### B MP #### [address] Creatinine [Mass/Vol] 0.53 mg/dL Low 0.70-1.30 [facility] Comment on above: Performed By: #### B MP #### [place] [address] [place] Creatinine Clr Calc Pharmacy 145.39 [facility] Comment on above: Performed By: #### B MP #### [place] [address] [place] GFR/1.73 sq M.predicted MDRD (S/P/Bld) [Vol rate/Area] mL/min/{1.73_m2} [facility] Comment on above: Performed By: #### B MP #### [place] [address] [place] Globulin (S) [Mass/Vol] 2.9 g/dL [facility] Comment on above: Performed By: #### B MP #### [place] [address] [place] Glucose [Mass/Vol] 83 mg/dL Normal 70-100 [facility] Comment on above: Result Comment: Bruno Glucose Reference Range is dependent on time and content of last meal. Glucose of more than 200 mg/dL in a nonstressed, ambulatory subject supports the diagnosis of Diabetes Mellitus. ADA recommended reference range Performed By: #### B MP #### [address] Potassium [Moles/Vol] 3.4 mmol/L Low 3.5-5.1 [facility] Comment on above: Performed By: #### B MP #### [address] Protein [Mass/Vol] 6.0 g/dL Low 6.4-8.9 [facility] Comment on above: Performed By: #### B MP #### [address] Sodium [Moles/Vol] 140 mmol/L Normal 136-145 [facility] Comment on above: Performed By: #### B MP #### [address] Urea nitrogen [Mass/Vol] 18 mg/dL Normal 7-25 [facility] Comment on above: Performed By: #### B MP #### [address] Glucose Poct Glucometerson 0 03-24-2023 Glucose [Mass/Vol] 86 mg/dL Normal [facility] Comment on above: Result Comment: [facility] Glucose Reference Range is dependent on time and content of last meal. Glucose of more than 200 mg/dL in a nonstressed, ambulatory subject supports the diagnosis of Diabetes Mellitus. PERFORMED BY: [place] [address] PATHOLOGIST CLINICAL AUDIOLOGIST SIVAKUMAR PALACIOS M.D. Performed By: #### G LULS #### Point of Care testing , Prealbuminon 03-24-2023 Prealbumin [Mass/Vol] 12.8 mg/dL Low 17.0-34.0 [facility] Comment on above: Result Comment: PERF ORMED BY: [place] [address] PATHOLOGIST CLINICAL AUDIOLOGIST SIVAKUMAR PALACIOS M.D. Performed By: #### B MP #### [address] Scan and CBCon 03-24-2023 Basophils (Bld) [#/Vol] 0.0 10*3/uL Normal 0.0-0.2 [facility] Comment on above: Performed By: #### B MP #### [address] Basophils/100 WBC (Bld) 0.6 % Normal . [facility] Comment on above: Performed By: #### B MP #### [address] Eosinophils (Bld) [#/Vol] 0.4 10*3/uL Normal 0.0-0.45 [facility] Comment on above: Performed By: #### B MP #### [address] Eosinophils/100 WBC (Bld) 9.1 % Normal . [facility] Comment on above: Performed By: #### B MP #### [address] Erythrocyte distribution width (RBC) [Ratio] 14.1 % Normal 12.0-14.8 [facility] Comment on above: Performed By: #### B MP #### [address] Hematocrit (Bld) [Volume fraction] 35.3 % Low 38.8-50.0 [facility] Comment on above: Performed By: #### B MP #### [address] Hemoglobin (Bld) [Mass/Vol] 11.6 g/dL Low 13.0-17.0 [facility] Comment on above: Performed By: #### B MP #### [address] Large Platelets Slight Normal [facility] Comment on above: Result Comment: PERF ORMED BY: [place] [address] PATHOLOGIST CLINICAL AUDIOLOGIST SIVAKUMAR PALACIOS M.D. Performed By: #### B MP #### [place] [address] [place] Lymphocytes (Bld) [#/Vol] 1.8 10*3/uL Normal 1.00-4.8 [facility] Comment on above: Performed By: #### B MP #### [address] Lymphocytes/100 WBC (Bld) 38.3 % Normal . [facility] Comment on above: Performed By: #### B MP #### [address] MCH (RBC) [Entitic mass] 28.6 pg Normal 27.5-35.2 [facility] Comment on above: Performed By: #### B MP #### [address] MCV (RBC) [Entitic vol] 87.0 fL Normal 83.5-101 [facility] Comment on above: Performed By: #### B MP #### [address] Mean Corpuscular HGB Conc 32.8 g/dL Normal 32.5-35.6 [facility] Comment on above: Performed By: #### B MP #### [address] Monocytes (Bld) [#/Vol] 0.4 10*3/uL Normal 0.0-0.8 [facility] Comment on above: Performed By: #### B MP #### [address] Monocytes/100 WBC (Bld) 8.7 % Normal . [facility] Comment on above: Performed By: #### B MP #### [address] Neutrophils (Bld) [#/Vol] 2.0 10*3/uL Normal 1.8-7.7 [facility] Comment on above: Performed By: #### B MP #### [address] Neutrophils/100 WBC (Bld) 43.3 % Normal . [facility] Comment on above: Performed By: #### B MP #### [address] NRBC% 0.2 /100{WBC} Normal 0-0.5 [facility] Comment on above: Performed By: #### B MP #### [address] Platelet Estimate Normal Normal Normal [facility] Comment on above: Performed By: #### B MP #### [address] Platelet mean volume (Bld) [Entitic vol] 10.4 fL High 6.6-10.1 [facility] Comment on above: Performed By: #### B MP #### [address] Platelet Morphology Normal Normal Normal [facility] Comment on above: Performed By: #### B MP #### [address] Platelets (Bld) [#/Vol] 155 10*3/uL Normal 150-450 [facility] Comment on above: Performed By: #### B MP #### [address] RBC (Bld) [#/Vol] 4.06 10*6/uL Normal 3.90-5.60 [facility] Comment on above: Performed By: #### B MP #### [address] RBC morphology finding Nom (Bld) Normal Normal Normal [facility] Comment on above: Performed By: #### B MP #### [address] WBC (Bld) [#/Vol] 4.6 10*3/uL Normal 4.1-10.5 [facility] Comment on above: Performed By: #### B MP #### [address] Ambulatory Visit Summaryon 0 03-20-2023 Ambulatory Visit Summary ALISIA CORREA :1960 Visit Date:03/20/2023 Ambulatory Visit Instructions Your Care Team Attending Physician - Fidel IBARRA MD Primary Care Physician - ELLEN CRABTREE DO This Is Your Medications List HYDROmorphone (hydromorphone 2 mg Tab) acarbose (acarbose 25 mg oral tablet) atorvastatin (atorvastatin 10 mg Tab) benzonatate (benzonatate 100 mg Cap) carbidopa-levodopa (carbidopa-levodopa 25 mg-100 mg ER Tab) diclofenac (diclofenac sodium 75 mg Oral EC Tab) duloxetine (duloxetine 60 mg oral delayed release capsule) ezetimibe (ezetimibe 10 mg Tab) fludrocortisone (fludrocortisone 0.1 mg Tab) midodrine (midodrine 5 mg Tab) montelukast (montelukast 10 mg Tab) ondansetron (ondansetron 4 mg Tab) pregabalin (pregabalin 300 mg Cap) tolterodine (tolterodine 4 mg Cap-ER) topiramate (topiramate 100 mg Tab) venlafaxine (venlafaxine 37.5 mg Cap-ER) Procedures Performed Insertion of suprapubic catheter using ultrasound (US) guidance (01/22/2023), Procedure on prostate (03/08/2019), TURP - Transurethral resection of prostate (03/08/2019), Injection of therapeutic substance into bladder wall (01/25/2019), Transurethral insertion of prostatic urethral lift implant (01/26/2018), Cystoscopy (12/01/2017), Urodynamics (10/28/2017), Colonoscopy, Gastric bypass, Knee replacement, Shoulder, Tonsillectomy. What to do next Scheduled Follow-Up Appointments Thursday 9:00 AM EDT Where: [facility] Patient Educationon 03-20-20 23 Patient Education Urology Suprapubic Catheter Home Guide A suprapubic catheter is a flexible tube that is used to drain urine from the bladder into a collection bag outside the body. The catheter is inserted into the bladder through a small opening in the lower abdomen, above the pubic bone (suprapubic area) and a few inches below your belly button (navel). A tiny balloon filled with germ-free (sterile) water helps to keep the catheter in place. The collection bag must be emptied at least once a day and cleaned at least every other day. The collection bag can be put beside your bed at night and attached to your leg during the day. You may have a large collection bag to use at night and a smaller one to use during the day. Your suprapubic catheter may need to be changed every 4?6 weeks, or as often as recommended by your health care provider. Healing of the tract where the catheter is placed can take 6 weeks to 6 months. During that time, your health care provider may change your catheter. Once the tract is well healed, you or a caregiver will change your suprapubic catheter at home. What are the risks? This catheter is safe to use. However, problems can occur, including: ? Blocked urine flow. This can occur if the catheter stops working, or if you have a blood clot in your bladder or in the catheter. ? Irritation of the skin around the catheter. ? Infection. This can happen if bacteria gets into your bladder. Supplies needed: ? Two pairs of sterile gloves. ? Paper towels. ? Catheter. ? Two syringes. ? Sterile water. ? Sterile cleaning solution. ? Lubricant. ? Collection bags. How to change the catheter 1. Drink plenty of fluids during the hours before you change the catheter. 2. Wash your hands with soap and water. If soap and water are not available, use hand coil winding machines set up mechanic. 3. Draw up sterile water into a syringe to have ready to fill the new catheter balloon. The amount will depend on the size of the balloon. 4. Have all of your supplies ready and close to you on a paper towel. 5. Lie on your back, sitting slightly upright so that you can see the catheter and opening. 6. Put on sterile gloves. 7. Clean the skin around the catheter opening using the sterile cleaning solution. 8. Remove the water from the balloon in the catheter using a syringe. 9. Slowly remove the catheter. If the catheter seems stuck, or if you have difficulty removing it: ? Do not pull on it. ? Call your health care provider right away. 10. Place the old catheter on a paper towel to discard later. 11. Take off the used gloves, and put on a new pair. 12. Put lubricant on the end of the new catheter that will go into your bladder. 13. Clean the skin around the catheter opening using the sterile cleaning solution. 14. Gently slide the catheter through the opening in your abdomen and into the tract that leads to your bladder. 15. Wait for some urine to start flowing through the catheter. 16. When urine starts to flow through the catheter, attach the collection bag to the end of the catheter. Make sure the connection is tight. 17. Use a syringe to fill the catheter balloon with sterile water. Fill to the amount directed by your health care provider. 18. Remove the gloves and wash your hands with soap and water. How to care for the skin around the catheter Follow your health care provider's instructions on caring for your skin. ? Use a clean washcloth and soapy water to clean the skin around your catheter every day. Pat the area dry with a clean paper towel. ? Do not pull on the catheter. ? Do not use ointment or lotion on this area, unless told by your health care provider. ? Check the skin around the catheter every day for signs of infection. Check for: ? Redness, swelling, or pain. ? Fluid or blood. ? Warmth. ? Pus or a bad smell. How to empty and clean the collection bag Empty the large collection bag every 8 hours. Empty the small collection bag when it is about ? full. Clean the collection bag every 2?3 days, or as often as told by your health care provider. To do this: 1. Wash your hands with soap and water. If soap and water are not available, use hand coil winding machines set up mechanic. 2. Disconnect the bag from the catheter and immediately attach a new bag to the catheter. 3. Hold the used bag over the toilet or another container. 4. Turn the valve (spigot) at the bottom of the bag to empty the urine. Empty the used bag completely. ? Do not touch the opening of the spigot. ? Do not let the opening touch the toilet or container. 5. Close the spigot tightly when the bag is empty. 6. Clean the used bag in one of the following methods: ? According to the feltmaker's instructions. ? As told by your health care provider. 7. Let the bag dry completely. Put it in a clean plastic bag before storing it. General tips ? Always wash your hands before (more content not included)... Normal [facility] Urology Office/Clinic Noteon 03-20-2023 Urology Office/Clinic Note Chief Complaint SP tube change HPI Staff Pt is here for SP tube change. History of Present Illness Tests reviewed: reviewed none. I have reviewed the previous health record information and history for this patient from Dr. Ibarra. I have reviewed and verified the staff HPI to be accurate for this encounter. There have been no associated fever, chills, flank pain, or blood in the urine. Denies any urinary infections since last encounter. Review of Systems PHQ Score Initial Depression Screen Score: 0 ROS - Provider Constitutional: denies weight loss, denies hot flashes. Eyes: denies eye problems. Gastrointestinal: denies nausea, denies vomiting. Cardiovascular: denies chest pain or angina. Integumentary: no dryness Musculoskeletal: denies musculoskeletal symptoms. ENMT: denies otolaryngeal symptoms. Respiratory: no shortness of breath. Heme/Lymph: denies easy bleeding tendency, denies easy bruising tendency. Psychiatric: no confusion, no anxiety. Genitourinary: See HPI. Physical Exam Vitals & Measurements HR: 70(Peripheral) RR: 16 BP: 132/78 HT: 69 in HT: 175 cm WT: 92 kg WT: 202.4 lb BMI: 30.04 General Appearance: alert, no distress, well nourished, well developed male. Genitourinary: normal scrotum, normal testes, normal urethra, normal epididymis, normal vas deferens/spermatic cord. Flank Pain: none. Bladder: nonpalpable. Assessment/Plan Patient is a Henok lift. Unable to transfer to exam room tables. 1. Urinary retention (R33.9: Retention of urine, unspecified) Admitted to [facility] for urosepsis. Presented to [place] [facility] 12/18/22 due to urinary retention. Per ER notes, patient had catheter removed the day prior due to catheter becoming loose. Hospice unable to reinsert cath. Carrington was reinserted at ER 1600 ml drained. + culture at that time. Tx'd w/ Keflex. S/p Cysto, SP tube placement 01/22/23. Sutures were removed 01/30/23. Here today for second SP tube exchange. Denies any complaints with tubing. Denies drainage, redness, swelling at site of insertion. The patient denies seeing blood in the urine, fever, or chills. There have been no complications since the last tube change. The SP tube has been changed today in the office without difficulty, and the tube irrigated to ensure proper placement. Follow up 1 month SP tube change or sooner if needed. Pt understands and agrees with plan. 2. BPH with urinary obstruction (N40.1: Benign prostatic hyperplasia with lower urinary tract symptoms) PSA: 07/09/22 - 1.07 S/p UroLift bands 03/08/19. 3. Kidney stones (N20.0: Calculus of kidney) CT AP w/o con 12/18/22 - 2 punctate left-sided nephroliths. No hydro. Follow-up With When Contact Information WALTER YBARRA, Fidel Hinkle, [facility] [address], [place] [address]- Additional Instructions: 1 month SP tube change Patient Education Suprapubic Catheter Home Guide I, Layla Barrientos, personally scribed for Dr. Ibarra on 03/20/2023 09:47:10. . 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 Medications acarbose 25 mg oral tablet atorvastatin 10 mg Tab benzonatate 100 mg Cap carbidopa-levodopa 25 mg-100 mg ER Tab diclofenac sodium 75 mg Oral EC Tab, Oral, BID duloxetine 60 mg oral delayed release capsule ezetimibe 10 mg Tab fludrocortisone 0.1 mg Tab hydromorphone 2 mg Tab midodrine 5 mg Tab montelukast 10 mg Tab ondansetron 4 mg Tab pregabalin 300 mg Cap, Oral, BID tolterodine 4 mg Cap-ER topiramate 100 mg Tab, Oral, BID venlafaxine 37.5 mg Cap-ER Allergies Avelox (Hives) CeleBREX (Hives) clonazePAM (Shortness of breath) erythromycin (Nausea) levoFLOXacin (Dyspnea, Shortness of breath) moxifloxacin (Dyspnea, Eruption, Itching, Urticaria) Social History Tobacco Former smoker, quit more than 30 days ago Tobacco Use:. Never Smokeless Tobacco Use:. Cigarettes, Household tobacco (more content not included)... Normal [facility] Comment on above: Result Comment: Elec tronically Signed By: Fidel IBARRA MD\.br\Date and Time Signed: 03/20/23 14:46 EDT\.br\Electronically Co-Signed By: Layla Barrientos\.br\Date and Time Co-Signed: 03/20/23 09:47 EDT Patient Educationon 02-21-20 Patient Education Urology Acute Urinary Retention, Male Acute urinary retention is a condition in which a person is unable to pass urine or can only pass a little urine. This condition can happen suddenly and last for a short time. If left untreated, it can become long-term (chronic) and result in kidney damage or other serious complications. What are the causes? This condition may be caused by: ? Obstruction or narrowing of the tube that drains the bladder (urethra). This may be caused by surgery, problems with nearby organs, or injury to the bladder or urethra. ? Problems with the nerves in the bladder. ? Tumors in the area of the pelvis, bladder, or urethra. ? Certain medicines. ? Bladder or urinary tract infection. ? Constipation. What increases the risk? This condition is more likely to develop in older men. As men age, their prostate may become larger and may start to press or squeeze on the bladder or the urethra. Other chronic health conditions can increase the risk of acute urinary retention. These include: ? Diseases such as multiple sclerosis. ? Spinal cord injuries. ? Diabetes. ? Degenerative cognitive conditions, such as delirium or dementia. ? Psychological conditions. A man may hold his urine due to trauma or because he does not want to use the bathroom. What are the signs or symptoms? Symptoms of this condition include: ? Trouble urinating. ? Pain in the lower abdomen. How is this diagnosed? This condition is diagnosed based on a physical exam and your medical history. You may also have other tests, including: ? An ultrasound of the bladder or kidneys or both. ? Blood tests. ? A urine analysis. ? Additional tests may be needed, such as a CT scan, MRI, and kidney or bladder function tests. How is this treated? Treatment for this condition may include: ? Medicines. ? Placing a thin, sterile tube (catheter) into the bladder to drain urine out of the body. This is called an indwelling urinary catheter. After it is inserted, the catheter is held in place with a small balloon that is filled with sterile water. Urine drains from the catheter into a collection bag outside of the body. ? Behavioral therapy. ? Treatment for other conditions. If needed, you may be treated in the hospital for kidney function problems or to manage other complications. Follow these instructions at home: Medicines ? Take [id number] and prescription medicines only as told by your health care provider. Avoid certain medicines, such as decongestants, antihistamines, and some prescription medicines. Do not take any medicine unless your health care provider approves. ? If you were prescribed an antibiotic medicine, take it as told by your health care provider. Do not stop using the antibiotic even if you start to feel better. General instructions ? Do not use any products that contain nicotine or tobacco. These products include cigarettes, chewing tobacco, and vaping devices, such as e-cigarettes. If you need help quitting, ask your health care provider. ? Drink enough fluid to keep your urine pale yellow. ? If you have an indwelling urinary catheter, follow the instructions from your health care provider. ? Monitor any changes in your symptoms. Tell your health care provider about any changes. ? If instructed, monitor your blood pressure at home. Report changes as told by your health care provider. ? Keep all follow-up visits. This is important. Contact a health care provider if: ? You have uncomfortable bladder contractions that you cannot control (spasms). ? You leak urine with the spasms. Get help right away if: ? You have chills or a fever. ? You have blood in your urine. ? You have a catheter and the following happens: ? Your catheter stops draining urine. ? Your catheter falls out. Summary ? Acute urinary retention is a condition in which a person is unable to pass urine or can only pass a little urine. If left untreated, this condition can result in kidney damage or other serious complications. ? An enlarged prostate may cause this condition. As men age, their prostate gland may become larger and may press or squeeze on the bladder or the urethra. ? Treatment for this condition may include medicines and placement of an indwelling urinary catheter. ? Monitor any changes in your symptoms. Tell your health care provider about any changes. This information is not intended to replace advice given to you by your health care provider. Make sure you discuss any questions you have with your health care provider. Document Revised: 06/26/2021 Document Reviewed: 06/26/2021 [employer] Patient Education ? [address] [facility] Urology Office/Clinic Noteon 02-20-2023 Urology Office/Clinic Note Chief Complaint 1st S/P Tube Change HPI Staff Pt is here today for 1st S/P Tube change. S/P Tube Placement done 01/22/23. DX: Urinary Retention, BPH, Kidney Stones & Incontinence w/o sensory awareness. Denies any complaints with tubing. Denies drainage/redness/swelling at site of insertion. Urine looks nakul in color. History of Present Illness Tests reviewed: None. I have reviewed the previous health record information and history for this patient from Dr. Ibarra. I have reviewed and verified the staff HPI to be accurate for this encounter. There have been no associated fever, chills, flank pain, or blood in the urine. Denies any urinary infections since last encounter. Review of Systems PHQ Score Initial Depression Screen Score: 0 ROS - Provider Constitutional: denies weight loss, denies hot flashes. Eyes: denies eye problems. Gastrointestinal: denies nausea, denies vomiting. Cardiovascular: denies chest pain or angina. Integumentary: no dryness Musculoskeletal: denies musculoskeletal symptoms. ENMT: denies otolaryngeal symptoms. Respiratory: no shortness of breath. Heme/Lymph: denies easy bleeding tendency, denies easy bruising tendency. Psychiatric: no confusion, no anxiety. Genitourinary: See HPI. Physical Exam Vitals & Measurements HR: 68(Peripheral) RR: 16 BP: 130/78 HT: 69 in HT: 175 cm WT: 92 kg WT: 202.4 lb BMI: 30.04 General Appearance: alert, no distress, well nourished, well developed male. Genitourinary: normal scrotum, normal testes, normal urethra, normal epididymis, normal vas deferens/spermatic cord. Flank Pain: none. Bladder: suprapubic catheter placement. Assessment/Plan Patient is a Henok lift. Unable to transfer to exam room tables. 1. Urinary retention (R33.9: Retention of urine, unspecified) Patient's family member states he was admitted to [facility] for urosepsis. Presented to [place] [facility] 12/18/22 due to urinary retention. Per ER notes, patient had catheter removed the day prior due to catheter becoming loose. Hospice unable to reinsert cath. Carrington was reinserted at ER 1600 ml drained. + culture at that time. Tx'd w/ Keflex. S/p Cysto, SP tube placement on 01/22/23. Sutures were removed 01/30/23. Here today for first SP tube exchange. Denies any complaints with tubing. Denies drainage, redness, swelling at site of insertion. The patient denies seeing blood in the urine, fever, or chills. There have been no complications since the last tube change. The SP tube has been changed today in the office without difficulty, and the tube irrigated to ensure proper placement. -Follow up in 1 month for SP tube exchange 2. BPH with urinary obstruction (N40.1: Benign prostatic hyperplasia with lower urinary tract symptoms) Patient seen 03/11/[address] Ibarra for cath removal following partial TURP/Removal of UroLift bands done 03/08/19. Patient then no showed to post-op appointment. Path report neg. PSA 07/09/22 - 1.070 3. Kidney stones (N20.0: Calculus of kidney) CT AP w/o contrast 12/18/22 2 punctate left-sided nephroliths. No hydro. Follow-up With When Contact Information WALTER YBARRA, Fidel Hinkle, [address] [place] [address]- Additional Instructions: 1 mos SP tube change Patient Education Acute Urinary Retention, Male I, Margoth Rodriguez, personally scribed for Dr. Ibarra on 02/20/2023 10:21:23. . Documentation recorded by the scribe, Margoth Rodriguez, accurately reflects the services(s) I performed and decisions made by me. Authenticated by Dr. Ibarra on 02/20/2023 10:22:40. 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 Medications acarbose 25 mg oral tablet atorvastatin 10 mg Tab benzonatate 100 mg Cap carbidopa-levodopa 25 mg-100 mg ER Tab diclofenac sodium 75 mg Oral EC Tab, Oral, BID duloxetine 60 mg oral delayed release capsule ezetimibe 10 mg Tab fludrocortisone 0.1 m (more content not included)... Normal [facility] Comment on above: Result Comment: Elec tronically Signed By: Fidel IBARRA MD\.br\Date and Time Signed: 02/20/23 10:22 EDT\.br\Electronically Co-Signed By: Margoth Rodriguez\.br\Date and Time Co-Signed: 02/20/23 10:21 EDT Lab Reportson 02-02-2023 Lab Reports [id number] Normal [facility] Ambulatory Visit Summaryon 0 01-30-2023 Ambulatory Visit Summary ALISIA CORREA :1960 Visit Date:01/30/2023 Ambulatory Visit Instructions Your Diagnosis Urinary retention BPH with urinary obstruction Kidney stones Incontinence without sensory awareness Your Care Team Attending Physician - Fidel IBARRA MD Primary Care Physician - ELLEN CRABTREE DO This Is Your Medications List Contact prescribing physician if questions or concerns HYDROmorphone (hydromorphone 2 mg Tab) acarbose (acarbose 25 mg oral tablet) amoxicillin-clavulanate (Augmentin 875 mg oral tablet) atorvastatin (atorvastatin 10 mg Tab) benzonatate (benzonatate 100 mg Cap) carbidopa-levodopa (carbidopa-levodopa 25 mg-100 mg ER Tab) diclofenac (diclofenac sodium 75 mg Oral EC Tab) duloxetine (duloxetine 60 mg oral delayed release capsule) ezetimibe (ezetimibe 10 mg Tab) fludrocortisone (fludrocortisone 0.1 mg Tab) midodrine (midodrine 5 mg Tab) montelukast (montelukast 10 mg Tab) ondansetron (ondansetron 4 mg Tab) pregabalin (pregabalin 300 mg Cap) tolterodine (tolterodine 4 mg Cap-ER) topiramate (topiramate 100 mg Tab) venlafaxine (venlafaxine 37.5 mg Cap-ER) Procedures Performed Insertion of suprapubic catheter using ultrasound (US) guidance (01/22/2023), Procedure on prostate (03/08/2019), TURP - Transurethral resection of prostate (03/08/2019), Injection of therapeutic substance into bladder wall (01/25/2019), Transurethral insertion of prostatic urethral lift implant (01/26/2018), Cystoscopy (12/01/2017), Urodynamics (10/28/2017), Colonoscopy, Gastric bypass, Knee replacement, Shoulder, Tonsillectomy. Discharge Vitals Heart Rate (Peripheral) 68 Respiratory Rate 16 Blood Pressure 99/72 Height 175 cm Height 69 in Weight 92 kg Weight 202.4 lb BMI 30.04 What to do next Scheduled Follow-Up Appointments Thursday 9:15 AM EDT With: WALTER YBARRA, Fidel Hinkle Where: [facility] [place] Normal [facility] Patient Educationon 01-31-20 Patient Education Benign Prostatic Hyp erplasia Benign prostatic hyperplasia (BPH) is an enlarged prostate gland that is caused by the normal aging process and not by cancer. The prostate is a walnut-sized gland that is involved in the production of semen. It is located in front of the rectum and below the bladder. The bladder stores urine and the urethra is the tube that carries the urine out of the body. The prostate may get bigger as a man gets older. An enlarged prostate can press on the urethra. This can make it harder to pass urine. The build-up of urine in the bladder can cause infection. Back pressure and infection may progress to bladder damage and kidney (renal) failure. What are the causes? This condition is part of a normal aging process. However, not all men develop problems from this condition. If the prostate enlarges away from the urethra, urine flow will not be blocked. If it enlarges toward the urethra and compresses it, there will be problems passing urine. What increases the risk? This condition is more likely to develop in men over the age of 50 years. What are the signs or symptoms? Symptoms of this condition include: ? Getting up often during the night to urinate. ? Needing to urinate frequently during the day. ? Difficulty starting urine flow. ? Decrease in size and strength of your urine stream. ? Leaking (dribbling) after urinating. ? Inability to pass urine. This needs immediate treatment. ? Inability to completely empty your bladder. ? Pain when you pass urine. This is more common if there is also an infection. ? Urinary tract infection (UTI). How is this diagnosed? This condition is diagnosed based on your medical history, a physical exam, and your symptoms. Tests will also be done, such as: ? A post-void bladder scan. This measures any amount of urine that may remain in your bladder after you finish urinating. ? A digital rectal exam. In a rectal exam, your health care provider checks your prostate by putting a lubricated, gloved finger into your rectum to feel the back of your prostate gland. This exam detects the size of your gland and any abnormal lumps or growths. ? An exam of your urine (urinalysis). ? A prostate specific antigen (PSA) screening. This is a blood test used to screen for prostate cancer. ? An ultrasound. This test uses sound waves to electronically produce a picture of your prostate gland. Your health care provider may refer you to a specialist in kidney and prostate diseases (urologist). How is this treated? Once symptoms begin, your health care provider will monitor your condition (active surveillance or watchful waiting). Treatment for this condition will depend on the severity of your condition. Treatment may include: ? Observation and yearly exams. This may be the only treatment needed if your condition and symptoms are mild. ? Medicines to relieve your symptoms, including: ? Medicines to shrink the prostate. ? Medicines to relax the muscle of the prostate. ? Surgery in severe cases. Surgery may include: ? Prostatectomy. In this procedure, the prostate tissue is removed completely through an open incision or with a laparoscope or robotics. ? Transurethral resection of the prostate (TURP). In this procedure, a tool is inserted through the opening at the tip of the penis (urethra). It is used to cut away tissue of the inner core of the prostate. The pieces are removed through the same opening of the penis. This removes the blockage. ? Transurethral incision (TUIP). In this procedure, small cuts are made in the prostate. This lessens the prostate's pressure on the urethra. ? Transurethral microwave thermotherapy (TUMT). This procedure uses microwaves to create heat. The heat destroys and removes a small amount of prostate tissue. ? Transurethral needle ablation (TUNA). This procedure uses radio frequencies to destroy and remove a small amount of prostate tissue. ? Interstitial laser coagulation (ILC). This procedure uses a laser to destroy and remove a small amount of prostate tissue. ? Transurethral electrovaporization (TUVP). This procedure uses electrodes to destroy and remove a small amount of prostate tissue. ? Prostatic urethral lift. This procedure inserts an implant to push the lobes of the prostate away from the urethra. Follow these instructions at home: ? Take nojj-cjn-ttxozmt and prescription medicines only as told by your health care provider. ? Monitor your symptoms for any changes. Contact your health care provider with any changes. ? Avoid drinking large amounts of liquid before going to bed or out in public. ? Avoid or reduce how much caffeine or alcohol you drink. ? Give yourself time when you urinate. ? Keep all follow-up visits as told by your health care provider. This is important. Contact a health care provider if: ? You have unexplained back pain. ? Your symptoms do not get better with treatment. ? You develop dianna (more content not included)... Normal [facility] Urology Office/Clinic Noteon 01-30-2023 Urology Office/Clinic Note Chief Complaint suture removal after SP tube placement HPI Staff Pt is here today for suture removal S/P suprapubic tube placement done 01/22/23 due to urinary retention, urinary incontinence & recurrent UTI. Overall doing well with the SP catheter. States that he has been having a little right sided abdominal pain since procedure. Rates his pain level at a 4 out of 10. No visible blood in his tube or carrington bag at this time. *Augmentin therapy given post op Additional DX: BPH & Kidney Stone History of Present Illness I have reviewed and verified the staff HPI to be accurate for this encounter. I have reviewed the previous health record information and history for this patient from Dr. Ibarra There have been no associated fever, chills, flank pain, or blood in the urine. Denies any urinary infections since last encounter. Review of Systems PHQ Score Initial Depression Screen Score: 0 ROS - Provider Constitutional: denies weight loss, denies hot flashes. Eyes: denies eye problems. Gastrointestinal: denies nausea, denies vomiting. Cardiovascular: denies chest pain or angina. Integumentary: no dryness Musculoskeletal: severe musculoskeletal symptoms. USES WHEELCHAIR AND HENOK LIFT ENMT: denies otolaryngeal symptoms. Respiratory: no shortness of breath. Heme/Lymph: denies easy bleeding tendency, denies easy bruising tendency. Psychiatric: no confusion, no anxiety. Genitourinary: denies dysuria, denies hematuria, denies discharge, denies urinary frequency, denies urinary hesitancy, denies nocturia, moderate incontinence Physical Exam Vitals & Measurements HR: 68(Peripheral) RR: 16 BP: 99/72 HT: 69 in HT: 175 cm WT: 92 kg WT: 202.4 lb BMI: 30.04 General Appearance: alert, no distress, well nourished, well developed male. Flank Pain: none. Bladder: nonpalpable. Procedure Sutures removed without difficulty around Sp catheter. Sp site looks good. Patient had tension on SP tube. It was adjusted in office today to provide slack with tubing. Assessment/Plan 1. Urinary retention (R33.9: Retention of urine, unspecified) S/p Cysto/SP tube placement on 01/22/23. Sutures were removed today without difficulty. Patients Sp cath is twisted today in office today. It was adjusted to facilitate emptying, and to relieve tension on the SP catheter. Patient is a Henok lift. Unable to transfer to exam room tables. 2. BPH with urinary obstruction (N40.1: Benign prostatic hyperplasia with lower urinary tract symptoms) Patient had chronic carrington. Patient seen 03/11/[address] Ibarra for cath removal following partial TURP/Removal of UroLift bands done 03/08/19. Patient then no showed to post-op appointment. Path report was negative. PSA 07/09/22 - 1.070 3. Kidney stones (N20.0: Calculus of kidney) CT AP w/o contrast 12/18/22 2 punctate left-sided nephroliths. No hydro. 4. Incontinence without sensory awareness (N39.42: Incontinence without sensory awareness) Prior to Carrington placement. Patient shares his quality of life has greatly improved with having Carrington catheter. Family member shares he also deals with fecal incontinence. I have reviewed the previous health history and record for this patient with Dr. Ibarra. f/u in 3 weeks for 1st SP tube change Follow-up With When Contact Information WALTER YBARRA, SRIDHAR Ballesteros In 3 weeks [facility] [address], [place] [id number]- [phone] Additional Instructions: 3 weeks for SP tube change Patient Education Benign Prostatic Hyperplasia Indwelling Urinary Catheter Care, Adult, [id number] I, Елена Carney, personally scribed for Dr. Ibarra on 01/30/2023 12:24:13. . Documentation recorded by the scribekenny, accurately reflects the services(s) I performed and decisions made by me. Authenticated by Dr. Ibarra on 01/30/2023 12:25:26. 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 Medications (more content not included)... Normal [facility] Comment on above: Result Comment: Elec tronically Signed By: Fidel IBARRA MD\.br\Date and Time Signed: 01/30/23 12:25 EDT\.br\Electronically Co-Signed By: Елена Carney\.br\Date and Time Co-Signed: 01/30/23 12:24 EDT CALCULI, URINARYon 3 2,8 Dihydroxyadenine Normal [facility] Comment on above: Performed By: #### C VDTBH #### [facility] [address] [address] [address] Bruce Nicholas Ammonium Acid Urate Normal [facility] Comment on above: Performed By: #### C VDTBH #### [facility] [address] [address] [address] Bruce Nicholas Bilirubin Ql (U) Normal [facility] Comment on above: Performed By: #### C VDTBH #### [facility] [address] [address] [address] Bruce Nicholas Ca Oxalate Dihydrate 20 % Normal [facility] Comment on above: Performed By: #### C VDTBH #### [facility] [address] [address] [address] Bruce Nicholas CaHPO4 (Brushite) Normal [facility] Comment on above: Performed By: #### C VDTBH #### [facility] [address] [address] [address] Bruce Nicholas Calcium Bilirubinate [facility] Comment on above: Performed By: #### C VDTBH #### [facility] [address] [address] [address] Bruce Nicholas Calcium Carbonate [facility] Comment on above: Performed By: #### C VDTBH #### [facility] [address] [place] [address] Dr. Bruce Nicholas Calcium Oxalate Monohydrate 80 % [facility] Comment on above: Performed By: #### C VDTBH #### [facility] [address] [address] [address] Bruce Nicholas Calcium Palmitate Normal [facility] Comment on above: Performed By: #### C VDTBH #### [facility] [address] [place] [address] Dr. Bruce Nicholas Calcium Phosphate Normal [facility] Comment on above: Performed By: #### C VDTBH #### [facility] [address] [place] [address] Dr. Bruce Nicholas Calcium Stearate [facility] Comment on above: Performed By: #### C VDTBH #### [facility] [address] [place] [address] Dr. Bruce Nicholas Carbonate Apatite Normal [facility] Comment on above: Performed By: #### C VDTBH #### [facility] [address] [place] [address] Dr. Bruce Nicholas Cellular Material [place] [facility] Comment on above: Performed By: #### C VDTBH #### [facility] [address] [address] [address] Bruce Nicholas Cholesterol [facility] Comment on above: Performed By: #### C VDTBH #### [facility] [address] [place] [address] Dr. Bruce Nicholas Color (U) Brown [facility] Comment on above: Performed By: #### C VDTBH #### [facility] [address] [place] [address] Dr. Bruce Nicholas Comment [facility] Comment on above: Performed By: #### C VDTBH #### [facility] [address] [place] [address] Dr. Bruce Nicholas Comment Comment Normal [facility] Comment on above: Result Comment: Calc ulus received wet. Wet calculi must be dried before analysis, which delays reporting of results. Leaving calculi wet (such as water, saline, blood, urine) may lead to changes in composition. Performed By: #### C VDTBH #### [facility] [address] [place] [address] Dr. Bruce Nicholas Comment: Comment Normal [facility] Comment on above: Result Comment: [facility] questions regarding Calculi Analysis contact [facility] at: [phone]. Performed By: #### C VDTBH #### [facility] [address] [place] [address] Dr. Bruce Nicholas Composition Comment [facility] Comment on above: Result Comment: Perc entage (Represents the % composition) Performed By: #### C VDTBH #### [facility] [address] [place] [address] Dr. Bruce Nicholas Cystine [facility] Comment on above: Performed By: #### C VDTBH #### [facility] [address] [place] [address] Dr. Bruce Nicholas Disclaimer: Comment Normal [facility] Comment on above: Result Comment: This test was developed and its performance characteristics determined by [facility]. It has not been cleared or approved by the Food and Drug Administration. Performed By: #### C VDTBH #### [facility] [address] [place] [address] Dr. Bruce Nicholas Dried Blood Normal [facility] Comment on above: Performed By: #### C VDTBH #### [facility] [address] [address] [address] Bruce Nicholas Drug or Metabolite Normal [facility] Comment on above: Performed By: #### C VDTBH #### [facility] [address] [address] [address] Bruce Nicholas Hydroxyapatite Normal [facility] Comment on above: Performed By: #### C VDTBH #### [facility] [address] [address] [address] Bruce Nicholas Mg NH4 PO4 (Struvite) [facility] Comment on above: Performed By: #### C VDTBH #### [facility] [address] [address] [address] Bruce Nicholas MgHPO4 (Newberyite) [facility] Comment on above: Performed By: #### C VDTBH #### [facility] [address] [address] [address] Bruce Nicholas Other component(s) Normal [facility] Comment on above: Performed By: #### C VDTBH #### [facility] [address] [address] [address] Bruce Nicholas PDF . [facility] Comment on above: Performed By: #### C VDTBH #### [facility] [address] [address] [address] Bruce Nicholas Photo Comment Normal [facility] Comment on above: Result Comment: Phot ograph will follow under a separate cover Performed By: #### C VDTBH #### [facility] [address] [address] [address] Bruce Nicholas Please note: Comment [facility] Comment on above: Result Comment: Calc jayant report will follow via computer, mail or computer aided design operator delivery. Performed By: #### C VDTBH #### [facility] [address] [address] [address] Bruce Nicholas Size 6x4 [facility] Comment on above: Result Comment: Mult iple pieces received. Dimensions of the largest piece reported. Performed By: #### C VDTBH #### [facility] [address] [place] [address] Dr. Bruce Nicholas Sodium Acid Urate Normal [facility] Comment on above: Performed By: #### C VDTBH #### [facility] [address] [place] [address] Dr. Bruce Nicholas Source Comment [facility] Comment on above: Result Comment: Urin francine Bladder Performed By: #### C VDTBH #### [facility] [address] [place] [address] Dr. Bruce Nicholas Triamterene [facility] Comment on above: Performed By: #### C VDTBH #### [facility] [address] [place] [address] Dr. Bruce Nicholas Uric Acid [facility] Comment on above: Performed By: #### C VDTBH #### [facility] [address] [place] [address] Dr. Bruce Nicholas Uric Acid Dihydrate [facility] Comment on above: Performed By: #### C VDTBH #### [facility] [address] [place] [address] Dr. Bruce Nicholas Weight 615 mg [facility] Comment on above: Performed By: #### C VDTBH #### [facility] [address] [place] [address] Dr. Bruce Nicholas Xanthine [facility] Comment on above: Performed By: #### C VDTBH #### [facility] [address] [place] [address] Dr. Bruce Nicholas ECG 12-Leadon 01-28-2023 ECG 12-Lead [id number]#[id number]:127 Normal [facility] Operative Reporton Operative Report [id number]#[id number]:127 Normal [facility] POINT OF CARE GLUCOSEon 040 Glucose [Mass/Vol] 70 mg/dL Critically low 74-106 Th e [facility] Comment on above: Performed By: #### C BC #### [facility] [address] [place] [address] Dr. Bruce Nicholas RAD - MISCon 01-22-2023 RAD - MISC [id number]:127 Normal [facility] CBC AUTO DIFFon 01-20-2023 BASO # 0.0 103/ul Normal 0.0-0.1 [facility] Comment on above: Performed By: #### C VDTBH #### [facility] [address] [place] [address] Dr. Bruce Nicholas Basophils/100 WBC (Bld) 0.2 % Normal 0.2-2.0 [facility] Comment on above: Performed By: #### C VDTBH #### [facility] [address] [place] [address] Dr. Bruce Nicholas EO # 0.1 103/ul Normal 0.0-0.7 [facility] Comment on above: Performed By: #### C VDTBH #### [facility] [address] [place] [address] Dr. Bruce Nicholas Eosinophils/100 WBC (Bld) 0.7 % Critically low 0.9-7.0 [facility] Comment on above: Performed By: #### C VDTBH #### [facility] [address] [place] [address] Dr. Bruce Nicholas Erythrocyte distribution width (RBC) [Ratio] 15.2 % Critically high 11.0-15.0 [facility] Comment on above: Performed By: #### C VDTBH #### [facility] [address] [place] [address] Dr. Bruce Nicholas Hematocrit (Bld) [Volume fraction] 43.0 % Normal 42.0-54.0 [facility] Comment on above: Performed By: #### C VDTBH #### [facility] [address] [place] [address] Dr. Bruce Nicholas Hemoglobin (Bld) [Mass/Vol] 13.7 g/dL Critically low 14.0-18.0 [facility] Comment on above: Performed By: #### C VDTBH #### [facility] [address] [place] [address] Dr. Bruce Nicholas IG # 0.04 10e3/ul Critically high 0.00-0.03 [facility] Comment on above: Performed By: #### C VDTBH #### [facility] [address] [place] [address] Dr. Bruce Nicholas IG % 0.5 % Normal 0.0-0.5 [facility] Comment on above: Performed By: #### C VDTBH #### [facility] [address] [place] [address] Dr. Bruce Nicholas LYMPH # 1.6 103/ul Normal 1.2-3.8 [facility] Comment on above: Performed By: #### C VDTBH #### [facility] [address] [place] [address] Dr. Bruce Nicholas Lymphocytes/100 WBC (Bld) 18.4 % Critically low 20.5-60.0 [facility] Comment on above: Performed By: #### C VDTBH #### [facility] [address] [place] [address] Dr. Bruce Nicholas MANUAL DIFF REQ NO Normal [facility] Comment on above: Performed By: #### C VDTBH #### [facility] [address] [place] [address] Dr. Brcue Nicholas MCH (RBC) [Entitic mass] 28.8 pg Normal 25.9-34.0 [facility] Comment on above: Performed By: #### C VDTBH #### [facility] [address] [place] [address] Dr. Bruce Nicholas MCHC (RBC) [Mass/Vol] 31.9 g/dL Normal 29.9-35.2 [facility] Comment on above: Performed By: #### C VDTBH #### [facility] [address] [place] [address] Dr. Bruce Nicholas MCV (RBC) [Entitic vol] 90.3 fL Normal 80.0-94.0 [facility] Comment on above: Performed By: #### C VDTBH #### [facility] [address] [place] [address] Dr. Bruce Nicholas MONO # 0.6 103/ul Normal 0.3-0.8 [facility] Comment on above: Performed By: #### C VDTBH #### [facility] [address] [place] [address] Dr. Bruce Nicholas Monocytes/100 WBC (Bld) 6.5 % Normal 1.7-12.0 [facility] Comment on above: Performed By: #### C VDTBH #### [facility] [address] [place] [address] Dr. Bruce Nicholas NEUT # 6.4 103/ul Normal 1.4-6.5 [facility] Comment on above: Performed By: #### C VDTB #### [facility] [address] [place] [address] Dr. Bruce Nicholas Neutrophils/100 WBC (Bld) 73.7 % Normal 43.0-75.0 [facility] Comment on above: Performed By: #### C VDTBH #### [facility] [address] [place] [address] Dr. Bruce Nicholas Platelet mean volume (Bld) [Entitic vol] 11.6 fL Normal 9.5-13.5 [facility] Comment on above: Performed By: #### C VDTBH #### [facility] [address] [place] [address] Dr. Bruce Nicholas PLT 229 103/ul Normal 150-450 [facility] Comment on above: Performed By: #### C VDTBH #### [facility] [address] [place] [address] Dr. Bruce Nicholas RBC 4.76 106/ul Normal 4.70-6.10 [facility] Comment on above: Performed By: #### C VDTBH #### [facility] [address] [address] [address] Bruce Nicholas WBC 8.7 103/ul Normal 4.0-11.0 [facility] Comment on above: Performed By: #### C VDTBH #### [facility] [address] [address] [address] Bruce Nicholas PROF CHEM 8 (BAS METB)on Anion gap [Moles/Vol] 11.1 mmol/L Normal [facility] Comment on above: Performed By: #### C BC #### [facility] [address] [place] [address] Dr. Bruce Nicholas Calcium [Mass/Vol] 9.5 mg/dL Normal 8.5-10.1 [facility] Comment on above: Performed By: #### C BC #### [facility] [address] [place] [address] Dr. Bruce Nicholas Chloride [Moles/Vol] 105 mmol/L Normal 98-107 [facility] Comment on above: Performed By: #### C BC #### [facility] [address] [place] [address] Dr. Bruce Nicholas CO2 [Moles/Vol] 27.5 mmol/L Normal 21.0-32.0 [facility] Comment on above: Performed By: #### C BC #### [facility] [address] [place] [address] Dr. Bruce Nicholas Creatinine [Mass/Vol] 0.73 mg/dL Normal 0.70-1.30 [facility] Comment on above: Performed By: #### C BC #### [facility] [address] [place] [address] Dr. Bruce Nicholas EGFR-AF COSTA RICAN >60 Normal >=60 [facility] Comment on above: Performed By: #### C BC #### [facility] [address] [place] [address] Dr. Bruce Nicholas EGFR-NON AF [place] R[place] >60 Normal >=60 [facility] Comment on above: Performed By: #### C BC #### [facility] [address] [address] [address] Bruce Nicholas Glucose [Mass/Vol] 97 mg/dL Normal 74-106 [facility] Comment on above: Performed By: #### C BC #### [facility] [address] [address] [address] Bruce Nicholas Potassium [Moles/Vol] 4.1 mmol/L Normal 3.5-5.1 [facility] Comment on above: Performed By: #### C BC #### [facility] [address] [address] [address] Bruce Nicholas Sodium [Moles/Vol] 140 mmol/L Normal 136-145 [facility] Comment on above: Performed By: #### C BC #### [facility] [address] [address] [address] Bruce Nicholas Urea nitrogen [Mass/Vol] 22.0 mg/dL Critically high 7.0-18.0 [facility] Comment on above: Performed By: #### C BC #### [facility] [address] [address] [address] Bruce Nicholas Urea nitrogen/Creatinin e [Mass ratio] 30.1 mg/mg Normal [facility] Comment on above: Performed By: #### C BC #### [facility] [address] [address] [address] Bruce Nicholas Ambulatory Visit Summaryon 0 01-16-2023 Ambulatory Visit Summary SUNNYALISIA :1960 Visit Date:01/16/2023 Ambulatory Visit Instructions Your Diagnosis Urinary retention BPH with urinary obstruction Incontinence without sensory awareness Kidney stones Your Care Team Attending Physician - Fidel IBARRA MD Primary Care Physician - ELLEN CRABTREE DO This Is Your Medications List Contact prescribing physician if questions or concerns HYDROmorphone (hydromorphone 2 mg Tab) acarbose (acarbose 25 mg oral tablet) atorvastatin (atorvastatin 10 mg Tab) benzonatate (benzonatate 100 mg Cap) carbidopa-levodopa (carbidopa-levodopa 25 mg-100 mg ER Tab) diclofenac (diclofenac sodium 75 mg Oral EC Tab) duloxetine (duloxetine 60 mg oral delayed release capsule) ezetimibe (ezetimibe 10 mg Tab) fludrocortisone (fludrocortisone 0.1 mg Tab) midodrine (midodrine 5 mg Tab) montelukast (montelukast 10 mg Tab) ondansetron (ondansetron 4 mg Tab) pregabalin (pregabalin 300 mg Cap) tolterodine (tolterodine 4 mg Cap-ER) topiramate (topiramate 100 mg Tab) venlafaxine (venlafaxine 37.5 mg Cap-ER) Procedures Performed Procedure on prostate (03/08/2019), TURP - Transurethral resection of prostate (03/08/2019), Injection of therapeutic substance into bladder wall (01/25/2019), Transurethral insertion of prostatic urethral lift implant (01/26/2018), Cystoscopy (12/01/2017), Urodynamics (10/28/2017), Colonoscopy, Gastric bypass, Knee replacement, Shoulder, Tonsillectomy. Discharge Vitals Heart Rate (Peripheral) 66 Respiratory Rate 16 Blood Pressure 111/76 Height 175 cm Height 69 in Weight 92 kg Weight 202.4 lb BMI 30.04 What to do next You Need to Schedule the Following Appointments Follow Up with WALTER YBARRA, SRIDHAR Ballesteros When: Where: [address] [place] [address]- Medications What How Much When Instructions Unchanged acarbose (acarbose 25 mg oral tablet) Contact prescribing physician if questions or concerns Unchanged atorvastatin (atorvastatin 10 mg Tab) Contact prescribing physician if questions or concerns Unchanged benzonatate (benzonatate 100 mg Cap) Contact prescribing physician if questions or concerns Unchanged carbidopa-levodopa (carbidopa-levodopa 25 mg-100 mg ER Tab) Contact prescribing physician if questions or concerns Unchanged diclofenac (diclofenac sodium 75 mg Oral EC Tab) 2 times a day Contact prescribing physician if questions or concerns Unchanged duloxetine (duloxetine 60 mg oral delayed release capsule) Contact prescribing physician if questions or concerns Unchanged ezetimibe (ezetimibe 10 mg Tab) Contact prescribing physician if questions or concerns Unchanged fludrocortisone (fludrocortisone 0.1 mg Tab) Contact prescribing physician if questions or concerns Unchanged HYDROmorphone (hydromorphone 2 mg Tab) Contact prescribing physician if questions or concerns Unchanged midodrine (midodrine 5 mg Tab) Contact prescribing physician if questions or concerns Unchanged montelukast (montelukast 10 mg Tab) Contact prescribing physician if questions or concerns Unchanged ondansetron (ondansetron 4 mg Tab) Contact prescribing physician if questions or concerns Unchanged pregabalin (pregabalin 300 mg Cap) 2 times a day Contact prescribing physician if questions or concerns Unchanged tolterodine (tolterodine 4 mg Cap-ER) Contact prescribing physician if questions or concerns Unchanged topiramate (topiramate 100 mg Tab) 2 times a day Contact prescribing physician if questions or concerns Unchanged venlafaxine (venlafaxine 37.5 mg Cap-ER) Contact prescribing physician if questions or concerns Allergies CeleBREX (Unknown) erythromycin (Unknown) levoFLOXacin (Unknown) Problems Ongoing - Any problem that you are currently receiving treatment for. 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 Durbin's esophagus Benign prostatic hyperplasia with outflow obstruction Diabetes mellitus Hyperlipidemia Education Materials Acute Urinary Retention, Male Acute urinary retention is a condition in which a person is unable to pass urine. This can last for a short time or for a long time. If left untreated, it can result in kidney damage or other serious complications. What are the causes? This condition may be caused by: ? Obstruction or narrowing of the tube that drains the bladder (urethra). This may be caused by surgery or problems with nearby organs, such as the prostate gland, which can press or squeeze the u (more content not included)... Normal [facility] Consent for Procedure/Surger yon 01-16-2023 Consent for Procedure/Surgery [id number]#[id number]:127 Normal [facility] Patient Educationon 01-17-20 23 Patient Education Urology Acute Urinary Retention, Male Acute urinary retention is a condition in which a person is unable to pass urine. This can last for a short time or for a long time. If left untreated, it can result in kidney damage or other serious complications. What are the causes? This condition may be caused by: ? Obstruction or narrowing of the tube that drains the bladder (urethra). This may be caused by surgery or problems with nearby organs, such as the prostate gland, which can press or squeeze the urethra. ? Problems with the nerves in the bladder. These can be caused by diseases, such as multiple sclerosis, or by spinal cord injuries. ? Certain medicines. ? Tumors in the area of the pelvis, bladder, or urethra. ? Diabetes. ? Degenerative cognitive conditions such as delirium or dementia. ? Bladder or urinary tract infection. ? Constipation. ? Blood in the urine (hematuria). ? Injury to the bladder or urethra.? ? Psychological (psychogenic) conditions. Someone may hold his urine due to trauma or because he does not want to use the bathroom. What increases the risk? This condition is more likely to develop in older men. As men age, their prostate may become larger and may start pressing or squeezing on the bladder or the urethra. What are the signs or symptoms? Symptoms of this condition include: ? Trouble urinating. ? Pain in the lower abdomen. Symptoms usually come on slowly over a long period of time. How is this diagnosed? This condition is diagnosed based on a physical exam and a medical history. You may also have other tests, including: ? An ultrasound of the bladder or kidneys or both. ? Blood tests. ? A urine analysis. ? Additional tests may be needed such as an MRI, kidney, or bladder function tests. How is this treated? Treatment for this condition may include: ? Medicines. ? Placing a thin, sterile tube (catheter) into the bladder to drain urine out of the body. This is called an indwelling urinary catheter. After being inserted, the catheter is held in place with a small balloon that is filled with sterile water. Urine drains from the catheter into a collection bag outside of the body. ? Behavioral therapy. ? Treatment for any underlying conditions. ? If needed, you may be treated in the hospital for kidney function problems or to manage other complications. Follow these instructions at home: ? Take [id number] and prescription medicines only as told by your health care provider. Avoid certain medicines, such as decongestants, antihistamines, and some prescription medicines. Do not take any medicine unless your health care provider has approved. ? If you were given an indwelling urinary catheter, take care of it as told by your health care provider. ? Drink enough fluid to keep your urine clear or pale yellow. ? If you were prescribed an antibiotic, take it as told by your health care provider. Do not stop taking the antibiotic even if you start to feel better. ? Do not use any products that contain nicotine or tobacco, such as cigarettes and e-cigarettes. If you need help quitting, ask your health care provider. ? Monitor any changes in your symptoms. Tell your health care provider about any changes. ? If instructed, monitor your blood pressure at home. Report changes as told by your health care provider. ? Keep all follow-up visits as told by your health care provider. This is important. Contact a health care provider if: ? You have uncomfortable bladder contractions that you cannot control (spasms) or you leak urine with the spasms. Get help right away if: ? You have chills or fever. ? You have blood in your urine. ? You have a catheter and: ? Your catheter stops draining urine. ? Your catheter falls out. Summary ? Acute urinary retention is a condition in which a person is unable to pass urine. If left untreated, it can result in kidney damage or other serious complications. ? The cause of this condition may include an enlarged prostate. As men age, their prostate gland may become larger and may start pressing or squeezing on the bladder or the urethra. ? Treatment for this condition may include medicines and placement of an indwelling urinary catheter. ? Monitor any changes in your symptoms. Tell your health care provider about any changes. This information is not intended to replace advice given to you by your health care provider. Make sure you discuss any questions you have with your health care provider. Document Released: 01/11/2002 Document Revised: 09/17/2018 Document Reviewed: 11/06/2017 [employer] Patient Education ? 2020 [employer]. Normal [facility] Urology Office/Clinic Noteon 01-16-2023 Urology Office/Clinic Note Chief Complaint New Pt *Re Establish Care HPI Staff New pt. Here today to re-establish care. Pt is in Hospice. Wheelchair bound. Last seen in our office 03/11/19 for cath removal following TURP/Removal of Urolift bands done 03/08/19. Pt then no showed to post op TURP appt. Went to [facility] 3/2/23 due to urinary retention. Per ER notes, pt had catheter removed the day prior due to catheter becoming loose. Hospice unable to reinsert cath. Carrington was reinserted at ER 1600ml drained. + C&S at that time. Tx'd w/Keflex therapy. Per ER notes, pt is to see urology for possible S/P tube placement. PSA done 07/09/22- 1.070 CT a/p done 12/18/22. 6wks ago went to [facility] due to Urosepsis. Catheter was inserted at that time. Returned home. Pt states he has lost the feeling of needing to void. (urinating and bowel movements). Continuous Incontinence. Interested in S/P Tube Placement. Urine in back has continuous residue, occasionally chocolate milk consistency. Today it is dark red. History of Present Illness Tests reviewed: Reviewed CT, labs, and outside records. I have reviewed the previous health record information and history for this patient from Dr. Ibarra. I have reviewed and verified the staff HPI to be accurate for this encounter. There have been no associated fever, chills, flank pain, or blood in the urine. Denies any urinary infections since last encounter. Review of Systems PHQ Score Initial Depression Screen Score: 0 ROS - Provider Constitutional: denies weight loss, denies hot flashes. Eyes: denies eye problems. Gastrointestinal: denies nausea, denies vomiting. Cardiovascular: denies chest pain or angina. Integumentary: no dryness Musculoskeletal: denies musculoskeletal symptoms. ENMT: denies otolaryngeal symptoms. Respiratory: no shortness of breath. Heme/Lymph: denies easy bleeding tendency, denies easy bruising tendency. Psychiatric: no confusion, no anxiety. Genitourinary: See HPI. Physical Exam Vitals & Measurements HR: 66(Peripheral) RR: 16 BP: 111/76 HT: 69 in HT: 175 cm WT: 92 kg WT: 202.4 lb BMI: 30.04 General Appearance: alert, no distress, well nourished, well developed male. Head: normocephalic . Eyes: normal orbit and globe. ENMT: normal examination of external ears. Chest: Lungs CTA, respirations non labored. Cardiovascular: regular rate and rhythm. Abdomen: soft, non distended, no tenderness, no mass or organomegaly, no hernia. Genitourinary: normal scrotum, normal testes, normal urethra, normal epididymis, normal vas deferens/spermatic cord. no urethral erosion noted. urine in cath shows debris, blood. Flank Pain: none. Bladder: Indwelling Carrington catheter. Penis: normal shaft, normal glans. Lymph Nodes: unremarkable palpation of the cervical area. Skin: warm, dry, no bruising. Psychiatric: cooperative, affect appropriate for age, normal judgement, euthymic mood. Assessment/Plan 1. Urinary retention (R33.9: Retention of urine, unspecified) New patient here to re-establish care. Patient's family member states he was admitted to [facility] for urosepsis. Presented to [facility] 12/18/22 due to urinary retention. Per ER notes, patient had catheter removed the day prior due to catheter becoming loose. Hospice unable to reinsert cath. Carrington was reinserted at ER 1600 ml drained. + culture at that time. Tx'd w/ Keflex. Per ER notes, discuss with urology possible S/P tube placement. Hx of gastric bypass 2002. Explained to patient he may still experience urinary leakage even with S/P tube. Discussed utilizing clamp. Mentioned if he becomes unhappy with SP tube placement, it can always be removed and catheter can be replaced. Will schedule suprapubic catheter placement. Risks and Benefits were discussed with the patient. These include bleeding, infection, pain, and need for additional procedures. Pre-op consent reviewed with and obtained from patient. Order Mac anesthesia. -Augmentin 875 mg daily #30 2. BPH with urinary obstruction (N40.1: Benign prostatic hyperplasia with lower urinary tract symptoms) Patient last seen 03/11/[address] Ibarra for cath removal following partial TURP/Removal of UroLift bands done 03/08/19. Patient then no showed to post-op appointment. Path report was negative. PSA 07/09/22 - 1.070 3. Incontinence without sensory awareness (N39.42: Incontinence without sensory awareness) Prior to Carrington placement. Patient shares his quality of life has greatly improved with having Carrington catheter. Family member shares he also deals with fecal incontinence. 4. Kidney stones (N20.0: Calculus of kidney) CT AP w/o contrast 12/18/22 2 punctate left-sided nephroliths. No hydro. Follow-up With When Contact Information Fidel IBARRA MD, URL [address] [place] [address]- Additional Instructions: Schedule SP tube placement Patient Education Acute Urinary Retention, Male I, Margoth Rodriguez, personally scribed for Dr. Ibarra on (more content not included)... Normal [facility] Comment on above: Result Comment: Elec tronically Signed By: Fidel IBARRA MD\.br\Date and Time Signed: 01/16/23 11:25 EDT\.br\Electronically Co-Signed By: Margoth Rodriguez\.br\Date and Time Co-Signed: 01/16/23 11:12 EDT\.br\Electronically Co-Signed By: Margoth Rodriguez\.br\Date and Time Co-Signed: 01/16/23 11:16 EDT CNOVon 12-24-2022 CNOV Office Visit (URFMOB ) ALISIA CORREA ([id number]) 1960 M Date Time Provider Department 12/24/22 11:30 AM SAY REYES URFMTANVIR During your visit today, we recorded the following information about you: Say Reyes APRN.NOC ANALYST 12/24/2022 5:59 PM Signed The patient did not show up for this appointment. Allergies As of Date: 12/24/2022 Noted Allergy Reaction CELEBREX (CELECOXIB) 06/04/2017 2 - Rash 4 - Hives 8 - GI Upset ERYTHROMYCIN BASE 03/06/2004 4 - Hives 12 - Shortness of Breath AVELOX (MOXIFLOXACIN HCL) 07/20/2006 2 - Rash 4 - Hives 9 - Itching 12 - Shortness of Breath KLONOPIN (CLONAZEPAM) 06/04/2017 9 - Itching LEVAQUIN (LEVOFLOXACIN) 01/29/2010 4 - Hives PIMAVANSERIN 08/23/2020 4 - Hives Date Reviewed: 12/06/2022 Reviewed by: Gerardo Ritchie RN - Fully Assessed Reason for Visit: No Show [1558] Cmt: No show Primary Visit Diagnosis:NO SHOW Prescriptions as of 12/24/2022 - midodrine (PROAMITINE) 5 mg tablet Take 3 tablets by mouth once daily. Take at 7:00am - midodrine (PROAMATINE) 10 mg tablet Take 1 tablet by mouth once daily. Take daily at 2:00pm - midodrine (PROAMATINE) 10 mg tablet Take 1 tablet by mouth once daily. Take daily at 8:00pm - topiramate (TOPAMAX) 100 mg tablet Take 1 tablet by mouth twice daily. - acetaminophen (TYLENOL) 500 mg tablet 2 tablets by ORAL/FEEDING TUBE route three times daily. - benzocaine-menthol (CHLORASEPTIC) 6-10 mg lozenges Use 1 Lozenge as instructed every 2 hours as needed. - benzonatate (TESSALON PERLE) 100 mg capsule Take 1 capsule by mouth three times daily as needed for cough. - fludrocortisone (FLORINEF) 0.1 mg tablet Take 1 tablet by mouth once daily. - glycopyrrolate (ROBINUL) 0.2 mg/mL injection Inject 1 mL intravenously or subcutaneousl every 4 hours as needed. - guaiFENesin (MUCINEX) 600 mg 12 hr tablet Take 1 tablet by mouth every 12 hours as needed (cough, congestion). - ipratropium-albuterol (DUONEB) 0.5 mg-3 mg(2.5 mg base)/3 mL nebu Inhale 3 mL as instructed every 4 hours as needed for wheezing/shortness of breath. - montelukast (SINGULAIR) 10 mg tablet Take 1 tablet by mouth once daily. - ondansetron (ZOFRAN) 4 mg tablet Take 1 tablet by mouth every 8 hours as needed for nausea/vomiting. - polyethylene glycol 3350 (MIRALAX, GLYCOLAX) 17 gram packet Take 1 Packet by mouth once daily. Dissolve dose in 4 - 8 ounces of liquid and take as directed. - senna (SENOKOT) 8.6 mg tab Take 1 tablet by mouth twice daily. - tolterodine ER (DETROL LA) 4 mg 24 hr capsule Take 4 mg by mouth once daily. - carbidopa-levodopa CR (SINEMET CR) 25-100 mg per tablet Take 2 tablets by mouth at 6 am, 2 tablets at 10 am, and 1 tablet at 2 pm, 6 pm, 10 pm and 2 am. - carbidopa-levodopa (SINEMET) 25-100 mg per tablet Take 1.5 tablets by mouth four times daily. - pregabalin (LYRICA) 300 mg capsule Take 300 mg by mouth twice daily. - DULoxetine (CYMBALTA) 60 mg capsule Take 1 capsule by mouth once daily. - Albuterol Sulfate 1.25 mg/3 mL INHALATION nebulizer solution Use 1 Ampule via nebulizer every 6 hours as needed for Wheezing/Shortness of Breath. Meds Comments as of 05/04/2018: 05/04/2018 takes a med for shaking Problem List As Of Date 12/24/2022 Noted Resolved SPRAIN OF NECK () [S13.9XXA] 03/06/2004 07/21/2019 CERVICAL SPINAL STENOSIS [M48.02] 03/06/2004 Brachial neuritis or radiculitis [M54.12] 03/06/2004 12/22/2018 THORACIC DISC DISPLACMNT [M51.24] 03/06/2004 Carpal tunnel syndrome [G56.00] 03/06/2004 12/22/2018 SPRAIN OF NECK () [S13.9XXA] 03/06/2004 CERVICAL DISC DISPLACMNT [M50.20] 04/17/2004 BRACHIAL NEURITIS NOS [M54.12] 04/17/2004 SPINAL STENOSIS-LUMBAR [M48.061] 08/13/2004 Rotator cuff syndrome of shoulder and allied di*12/10/2004 PSYCHOSEXUAL DYSFUNC NOS [F52.9] 07/31/2006 Urgency of urination [R39.15] 07/31/2006 12/05/2022 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] 05/11/2007 IMPOTENCE, ORGANIC ORIGN [N52.9] 10/08/2007 Frequency of urination [R35.0] 03/26/2010 Slow Urinary Stream [R39.198] 03/26/2010 Microstomia [Q18.5] 08/09/2010 BPH w urinary obs/LUTS [N40.1, N13.8] 08/12/2010 Postlaminectomy syndrome [M96.1] 06/30/2016 Glenohumeral arthritis [M19.019] 07/17/2016 12/22/2018 Primary osteoarthritis of left knee [M17.12] 01/28/2017 Type 2 diabetes mellitus without complication, *04/15/2017 Chronic pain syndrome [G89.4] 04/15/2017 COPD with chronic bronchitis (HCC) [J44.9] 04/15/2017 Arthritis of knee [M17.10] 04/27/2017 Primary osteoarthritis of right knee [M17.11] 05/20/2017 OA (osteoarthritis) of knee [M17.9] 07/01/2017 Glenohumeral arthritis, left [M19.012] 10/26/2017 Essential tremor [G25.0] 10/27/2017 Asthma [J45.909] 12/07/2017 Diabetes mellitus (HCC) [E11.9] 12/07/2017 Essential hypertension [I10] 12/07/2017 Hyperlipidemia [E78.5] 12/07/2017 Ulcerative lesio (more content not included)... Normal [facility] CULTURE URINEon 12-21-2022 CULTURE URINE Isolate 1 Pseudomonas aeruginosa >100,000 cfu/mL of ORGANISM 1 Pseudomonas aeruginosa ANTIBIOTIC M.I.C RX STATUS Piperacillin/Tazobactam <=4 S F Ceftazidime <=1 S F Imipenem 1 S F Amikacin <=2 S F Gentamicin <=1 S F Tobramycin <=1 S F Ciprofloxacin <=0.25 S F Levofloxacin 0.25 S F Normal [facility] Comment on above: Performed By: #### U RCX #### [facility] [address] [address] [address] Bruce Nicholas CBC AUTO DIFFon 12-18-2022 BASO # 0.0 103/ul Normal 0.0-0.1 [facility] Comment on above: Performed By: #### P OCGLUC #### [facility] [address] [address] [address] Bruce Nicholas Basophils/100 WBC (Bld) 0.6 % Normal 0.2-2.0 [facility] Comment on above: Performed By: #### P OCGLUC #### [facility] [address] [address] [address] Bruce Nicholas EO # 0.2 103/ul Normal 0.0-0.7 [facility] Comment on above: Performed By: #### P OCGLUC #### [facility] [address] [place] [address] Dr. Bruce Nicholas Eosinophils/100 WBC (Bld) 3.2 % Normal 0.9-7.0 [facility] Comment on above: Performed By: #### P OCGLUC #### [facility] [address] [place] [address] Dr. Bruce Nicholas Erythrocyte distribution width (RBC) [Ratio] 16.6 % Critically high 11.0-15.0 [facility] Comment on above: Performed By: #### P OCGLUC #### [facility] [address] [place] [address] Dr. Bruce Nicholas Hematocrit (Bld) [Volume fraction] 37.9 % Critically low 42.0-54.0 [facility] Comment on above: Performed By: #### P OCGLUC #### [facility] [address] [place] [address] Dr. Bruce Nicholas Hemoglobin (Bld) [Mass/Vol] 12.0 g/dL Critically low 14.0-18.0 [facility] Comment on above: Performed By: #### P OCGLUC #### [facility] [address] [place] [address] Dr. Bruce Nicholas IG # 0.02 10e3/ul Normal 0.00-0.03 [facility] Comment on above: Performed By: #### P OCGLUC #### [facility] [address] [place] [address] Dr. Bruce Nicholas IG % 0.3 % Normal 0.0-0.5 [facility] Comment on above: Performed By: #### P OCGLUC #### [facility] [address] [place] [address] Dr. Bruce Nicholas LYMPH # 1.2 103/ul Normal 1.2-3.8 [facility] Comment on above: Performed By: #### P OCGLUC #### [facility] [address] [address] [address] Bruce Nicholas Lymphocytes/100 WBC (Bld) 16.7 % Critically low 20.5-60.0 [facility] Comment on above: Performed By: #### P OCGLUC #### [facility] [address] [address] [address] Bruce Nicholas MANUAL DIFF REQ NO Normal [facility] Comment on above: Performed By: #### P OCGLUC #### [facility] [address] [address] [address] Bruce Nicholas MCH (RBC) [Entitic mass] 28.4 pg Normal 25.9-34.0 [facility] Comment on above: Performed By: #### P OCGLUC #### [facility] [address] [place] [address] Dr. Bruce Nicholas MCHC (RBC) [Mass/Vol] 31.7 g/dL Normal 29.9-35.2 [facility] Comment on above: Performed By: #### P OCGLUC #### [facility] [address] [address] [address] Bruce Nicholas MCV (RBC) [Entitic vol] 89.6 fL Normal 80.0-94.0 [facility] Comment on above: Performed By: #### P OCGLUC #### [facility] [address] [place] [address] Dr. Bruce Nicholas MONO # 0.6 103/ul Normal 0.3-0.8 [facility] Comment on above: Performed By: #### P OCGLUC #### [facility] [address] [address] [address] Bruce Nicholas Monocytes/100 WBC (Bld) 7.9 % Normal 1.7-12.0 [facility] Comment on above: Performed By: #### P OCGLUC #### [facility] [address] [address] [address] Bruce Nicholas NEUT # 5.0 103/ul Normal 1.4-6.5 [facility] Comment on above: Performed By: #### P OCGLUC #### [facility] [address] [address] [address] Bruce Nicholas Neutrophils/100 WBC (Bld) 71.3 % Normal 43.0-75.0 [facility] Comment on above: Performed By: #### P OCGLUC #### [facility] [address] [address] [address] Bruce Nicholas Platelet mean volume (Bld) [Entitic vol] 12.4 fL Normal 9.5-13.5 [facility] Comment on above: Performed By: #### P OCGLUC #### [facility] [address] [address] [address] Bruce Nicholas PLT 156 103/ul Normal 150-450 [facility] Comment on above: Performed By: #### P OCGLUC #### [facility] [address] [address] [address] Bruce Nicholas RBC 4.23 106/ul Critically low 4.70-6.10 [facility] Comment on above: Performed By: #### P OCGLUC #### [facility] [id number] Bruce Nicholas WBC 6.9 103/ul Normal 4.0-11.0 [facility] Comment on above: Performed By: #### P OCGLUC #### [facility] [id number] Bruce Nicholas CT ABD/PELVIS WO CONon 12-18 CT ABD/PELVIS WO CON EXAMINATION: CT ABD/PELVIS WO CON, 12/18/2022 1:17 PM MST HISTORY: Retention of urine COMPARISON: None. TECHNIQUE: CT scan of the abdomen and pelvis was performed without IV contrast. CT dose reduction technique was used, including Automated Exposure Control. FINDINGS: Tapering Machine Operator: No pertinent findings, which are not already discussed below. Tubes/lines/drains: Right paraspinal neurostimulator device leads coursing superiorly. CHEST: Lungs: Partially visualized multisegmental left lower lobe atelectasis. Trace bilateral effusions are noted. Cardiac and vascular: No cardiomegaly or significant pericardial effusion. ABDOMEN: Pelvis is not completely imaged. Liver: Unremarkable. Gallbladder and Biliary Tree: Hydropic gallbladder. Spleen: Calcified granulomata. Pancreas: A few microcalcifications are noted, suggestive of underlying chronic pancreatitis. No acute peripancreatic inflammation. Adrenal Glands: Unremarkable. Kidneys, Ureters, Bladder: 2 punctate left-sided nephroliths. No urolithiasis. No hydronephrosis or hydroureterosis. Carrington catheter decompresses the bladder which is obscured by beam hardening artifact. Additional gas within the bladder lumen, likely related to instrumentation. Gastrointestinal: Gastric bypass. No mural thickening or inflammatory changes. No dilated loops of small or large bowel. Normal appendix. Moderate rectal stool ball. No significant rectal wall thickening. No focal perirectal fat standing the setting of minimal hazy ascites throughout. No free air. No focal fluid collection. Additional mild to moderate diffuse chronic stool burden. Reproductive organ(s): Prostate is not evaluated given being hardening artifact. Lymphatic: No concerning retroperitoneal, mesenteric, or inguinal adenopathy. Vessels: Mild to moderate atherosclerosis.. BONES AND SOFT TISSUE: Bones: No acute fracture. No concerning osseous lesions. Bilateral total hip arthroplasties. L2-S1 posterior spinal fixation with laminectomies. Soft Tissue: Minimal anasarca. IMPRESSION: 1. Pelvis is not completely imaged. 2. No acute intra-abdominal/pelvic findings. 3. Mild to moderate stool burden with moderate rectal stool ball. 4. Hydropic gallbladder. 5. Trace effusions with multisegmental left lower lobe atelectasis, minimal anasarca, and minimal ascites. Electronically authenticated by: CHE PANDYA Date: 2022-12-18 17:14 Normal [facility] ER URINE PROFILEon 3 Bilirubin Ql (U) Negative Normal NEGATIVE [facility] Comment on above: Performed By: #### P OCGLUC #### [facility] [address] [address] [address] Bruce Nicholas Clarity (U) CLEAR Normal CLEAR [facility] Comment on above: Performed By: #### P OCGLUC #### [facility] [address] [address] [address] Bruce Nicholas Color (U) BROWN Abnormal YELLOW [facility] Comment on above: Performed By: #### P OCGLUC #### [facility] [address] [address] [address] Bruce WHEAT A micrscopic examina tion will be performed if indicated. Normal [facility] Comment on above: Performed By: #### P OCGLUC #### [facility] [address] [address] [address] Bruce Nicholas Glucose Ql (U) Negative Normal NEGATIVE [facility] Comment on above: Performed By: #### P OCGLUC #### [facility] [address] [address] [address] Bruce Nicholas Hemoglobin Ql (U) MODERATE Abnormal NEGATIVE [facility] Comment on above: Performed By: #### P OCGLUC #### [facility] [address] [address] [address] Bruce Nicholas Ketones Ql (U) Negative Normal NEGATIVE [facility] Comment on above: Performed By: #### P OCGLUC #### [facility] [address] [address] [address] Bruce Nicholas LEUKOCYTES LARGE Abnormal NEGATIVE [facility] Comment on above: Performed By: #### P OCGLUC #### [facility] [address] [address] [address] Bruce Nicholas Nitrite Ql (U) Positive Abnormal NEGATIVE [facility] Comment on above: Performed By: #### P OCGLUC #### [facility] [address] [address] [address] Bruce Nicholas pH (U) 6.0 [pH] Normal 5-9 [facility] Comment on above: Performed By: #### P OCGLUC #### [facility] [address] [address] [address] Bruce Nicholas Protein (U) [Mass/Vol] 30 mg/dL Abnormal NEGATIVE/ TRACE [facility] Comment on above: Performed By: #### P OCGLUC #### [facility] [address] [address] [address] Bruce Nicholas SPEC GRAVITY 1.020 Normal 1.005-<=1. 025 [facility] Comment on above: Performed By: #### P OCGLUC #### [facility] [address] [place] [address] Dr. Bruce Nicholas UR MICRO IND INDICATED Normal [facility] Comment on above: Performed By: #### P OCGLUC #### [facility] [address] [place] [address] Dr. Bruce Nicholas Urobilinogen Qn (U) 1.0 {Phillip'U}/dL Normal 0.2 - 1.0 [facility] Comment on above: Performed By: #### P OCGLUC #### [facility] [address] [place] [address] Dr. Bruce Nicholas PROF 14(COMP METB)on 023 Albumin [Mass/Vol] 3.0 g/dL Critically low 3.4-5.0 [facility] Comment on above: Performed By: #### C VDTBH #### [facility] [address] [place] [address] Dr. Bruce Nicholas Albumin/Globulin [Mass ratio] 0.9 {ratio} Normal [facility] Comment on above: Performed By: #### C VDTBH #### [facility] [address] [place] [address] Dr. Bruce Nicholas ALP [Catalytic activity/Vol] 112 U/L Normal 46-116 [facility] Comment on above: Performed By: #### C VDTBH #### [facility] [address] [place] [address] Dr. Bruce Nicholas ALT [Catalytic activity/Vol] 7 U/L Critically low 16-63 [facility] Comment on above: Performed By: #### C VDTBH #### [facility] [address] [place] [address] Dr. Bruce Nicholas Anion gap [Moles/Vol] 5.6 mmol/L Normal [facility] Comment on above: Performed By: #### C VDTBH #### [facility] [address] [place] [address] Dr. Bruce Nicholas AST [Catalytic activity/Vol] 19 U/L Normal 15-37 [facility] Comment on above: Performed By: #### C VDTBH #### [facility] [address] [address] [address] Bruce Nicholas Bilirubin [Mass/Vol] 0.6 mg/dL Normal 0.2-1.0 [facility] Comment on above: Performed By: #### C VDTBH #### [facility] [address] [address] [address] Bruce Nicholas Calcium [Mass/Vol] 9.0 mg/dL Normal 8.5-10.1 [facility] Comment on above: Performed By: #### C VDTBH #### [facility] [address] [address] [address] Bruce Nicholas Chloride [Moles/Vol] 106 mmol/L Normal 98-107 [facility] Comment on above: Performed By: #### C VDTBH #### [facility] [address] [place] [address] Dr. Bruce Nicholas CO2 [Moles/Vol] 29.0 mmol/L Normal 21.0-32.0 [facility] Comment on above: Performed By: #### C VDTBH #### [facility] [address] [place] [address] Dr. Bruce Nicholas Creatinine [Mass/Vol] 0.71 mg/dL Normal 0.70-1.30 [facility] Comment on above: Performed By: #### C VDTBH #### [facility] [address] [place] [address] Dr. Bruce Nicholas EGFR-AF [place] >60 Normal >=60 [facility] Comment on above: Performed By: #### C VDTBH #### [facility] [address] [place] [address] Dr. Bruce Nicholas EGFR-NON AF [place] >60 Normal >=60 [facility] Comment on above: Performed By: #### C VDTBH #### [facility] [address] [place] [address] Dr. Bruce Nicholas Globulin (S) [Mass/Vol] 3.2 g/dL Normal [facility] Comment on above: Performed By: #### C VDTBH #### [facility] [address] [address] [address] Bruce Nicholas Glucose [Mass/Vol] 93 mg/dL Normal 74-106 [facility] Comment on above: Performed By: #### C VDTBH #### [facility] [address] [place] [address] Dr. Bruce Nicholas Potassium [Moles/Vol] 3.6 mmol/L Normal 3.5-5.1 [facility] Comment on above: Performed By: #### C VDTBH #### [facility] [address] [place] [address] Dr. Bruce Nicholas Protein [Mass/Vol] 6.2 g/dL Critically low 6.4-8.2 [facility] Comment on above: Performed By: #### C VDTBH #### [facility] [address] [place] [address] Dr. Bruce Nicholas Sodium [Moles/Vol] 137 mmol/L Normal 136-145 [facility] Comment on above: Performed By: #### C VDTBH #### [facility] [address] [place] [address] Dr. Bruce Nicholas Urea nitrogen [Mass/Vol] 22.0 mg/dL Critically high 7.0-18.0 [facility] Comment on above: Performed By: #### C VDTBH #### [facility] [address] [place] [address] Dr. Bruce Nicholas Urea nitrogen/Creatinin e [Mass ratio] 31.0 mg/mg Normal [facility] Comment on above: Performed By: #### C VDTBH #### [facility] [address] [place] [address] Dr. Bruce Nicholas URINE MICROSCOPIC ONLYon BACTERIA SMALL Abnormal NONE SEEN [facility] Comment on above: Performed By: #### P OCGLUC #### [facility] [address] [place] [address] Dr. Bruce Nicholas Bacteria identified Cx Nom (U) INDICATED Normal [facility] Comment on above: Performed By: #### P OCGLUC #### [facility] [address] [address] [address] Bruce Nicholas CAST NONE SEEN Normal NONE SEEN [facility] Comment on above: Performed By: #### P OCGLUC #### [facility] [address] [address] [address] Bruce Nicholas Crystals LM Nom (Urine sed) NONE SEEN Normal NONE SEEN [facility] Comment on above: Performed By: #### P OCGLUC #### [facility] [address] [address] [address] Bruce Nicholas Epithelial cells LM Ql (Urine sed) NONE SEEN Normal NONE SEEN /RARE [facility] Comment on above: Performed By: #### P OCGLUC #### [facility] [address] [address] [address] Bruce Nicholas MUCOUS NONE SEEN Normal NONE SEEN [facility] Comment on above: Performed By: #### P OCGLUC #### [facility] [address] [address] [address] Bruce Nicholas RBC 10-20 Abnormal 0-2 [facility] Comment on above: Performed By: #### P OCGLUC #### [facility] [address] [address] [address] Bruce Nicholas WBC 50-75 Abnormal NONE SEEN [facility] Comment on above: Performed By: #### P OCGLUC #### [facility] [address] [address] [address] Bruce Nicholas CASE MANAGEMon 12-06-2022 CASE MANAGEM Normal [facility] CNDSon 12-06-2022 CNDS Normal [facility] CASE MANAGEMon 12-05-2022 CASE MANAGEM Normal [facility] CONSULT PROGon 12-05-2022 CONSULT PROG Normal [facility] NUTRITIONon 12-05-2022 NUTRITION Normal [facility] SOCIAL WORKon 12-05-2022 SOCIAL WORK Normal [facility] CASE MANAGEMon 12-04-2022 CASE MANAGEM Normal [facility] CONSULTon 12-04-2022 CONSULT Normal [facility] ALLIED HEALTHon 12-03-2022 ALLIED HEALTH Normal [facility] CASE MANAGEMon 02-15-2023 CASE MANAGEM Normal [facility] CBC panel Auto (Bld)on 12-03 Erythrocyte distribution width (RBC) [Ratio] 16.1 % High 11.5-15.0 [facility] Comment on above: Order Comment: Speci men Type: BLOOD SPECIMENOrdering Facility: [facility] Address: [address] [place] [address] Performed By: #### 5 8410-2 ####[facility] LABIA [id number] [address] [place] Hematocrit (Bld) [Volume fraction] 38.3 % Low 39.0-51.0 [facility] Comment on above: Order Comment: Speci men Type: BLOOD SPECIMENOrdering Facility: [facility] Address: [address] [place] [address] Performed By: #### 5 8410-2 ####[facility] LABIA [id number] [address] [place] [facility] Hemoglobin (Bld) [Mass/Vol] 12.4 g/dL Low 13.0-17.0 [facility] Comment on above: Order Comment: Speci men Type: BLOOD SPECIMENOrdering Facility: [facility] Address: [address] [place] [address] Performed By: #### 5 8410-2 ####[facility] LABIA [id number] [place] [address] [place] MCH (RBC) [Entitic mass] 28.1 pg Normal 26.0-34.0 [facility] Comment on above: Order Comment: Speci men Type: BLOOD SPECIMENOrdering Facility: [facility] Address: [address] [place] [address] Performed By: #### 5 8410-2 ####[facility] [facility] [id number] [place] [address] [place] MCHC (RBC) [Mass/Vol] 32.4 g/dL Normal 30.5-36.0 [facility] Comment on above: Order Comment: Speci men Type: BLOOD SPECIMENOrdering Facility: [facility] Address: [address] [place], [place] [address] Performed By: #### 5 8410-2 ####[facility] [id number] [address] [place] MCV (RBC) [Entitic vol] 86.7 fL Normal 80.0-100.0 [facility] Comment on above: Order Comment: Speci men Type: BLOOD SPECIMENOrdering Facility: [facility] Address: [address] Performed By: #### 5 8410-2 ####[facility] [id number] [address] [place] Nucleated RBC (Bld) [#/Vol] 10*3/uL Normal <0.01 [facility] Comment on above: Order Comment: Speci men Type: BLOOD SPECIMENOrdering Facility: [facility] Address: [address] [place], [place] [address] Performed By: #### 5 8410-2 ####[facility] [id number] [address] [place] Platelet mean volume (Bld) [Entitic vol] 13.0 fL High 9.0-12.7 [facility] Comment on above: Order Comment: Speci men Type: BLOOD SPECIMENOrdering Facility: [facility] Address: [address] Performed By: #### 5 8410-2 ####[facility] LABIA [id number] [place] [address] [place] Platelets (Bld) [#/Vol] 144 10*3/uL Low 150-400 [facility] Comment on above: Order Comment: Speci men Type: BLOOD SPECIMENOrdering Facility: [facility] Address: [address] [place], [place] [address] Result Comment: Resu lts checked and verified.No clot detected. Performed By: #### 5 8410-2 ####[facility] LABCLIA [id number] [place] [address] [place] RBC (Bld) [#/Vol] 4.42 10*6/uL Normal 4.20-6.00 [facility] Comment on above: Order Comment: Speci men Type: BLOOD SPECIMENOrdering Facility: [facility] Address: [address] Performed By: #### 5 8410-2 ####[facility] LABIA [id number] [place] [address] [place] WBC (Bld) [#/Vol] 9.30 10*3/uL Normal 3.70-11.00 [facility] Comment on above: Order Comment: Speci men Type: BLOOD SPECIMENOrdering Facility: [facility] Address: [address] Performed By: #### 5 8410-2 ####[facility] LABIA [id number] [place] [address] [place] CONSULT PROGon 12-03-2022 CONSULT PROG Normal [facility] ECG COMPLETEon 12-03-2022 ECG COMPLETE Normal [facility] Gas and Carbon monoxide pane l (BldV)on 12-03-2022 Base excess Calc (BldV) [Moles/Vol] 1 mmol/L Normal 0-2 [facility] Comment on above: Order Comment: Speci men Type: VENOUS BLOOD SPECIMENOrdering Facility: [facility] Address: [address] Performed By: #### 2 4344-4 ####[facility] LABCLIA [id number] [place] [address] [place] Body temperature 97.52 [degF] Normal [facility] Comment on above: Order Comment: Speci men Type: VENOUS BLOOD SPECIMENOrdering Facility: [facility] Address: [address] [place] [address] Performed By: #### 2 4344-4 ####[facility] LABCLIA [id number] [place] [address] [place] Calcium.ionized (Bld) [Mass/Vol] 1.17 mmol/L Normal 1.08-1.30 [facility] Comment on above: Order Comment: Speci men Type: VENOUS BLOOD SPECIMENOrdering Facility: [facility] Address: [address] [place] [address] Performed By: #### 2 4344-4 ####[facility] LABIA [id number] [place] [address] [place] Calcium.ionized adjusted to pH 7.4 (BldA) [Moles/Vol] 1.19 mmol/L Normal 1.08-1.30 [facility] Comment on above: Order Comment: Speci men Type: VENOUS BLOOD SPECIMENOrdering Facility: [facility] Address: [address] [place] [address] Performed By: #### 2 4344-4 ####[facility] LABIA [id number] [place] [address] [place] Carboxyhemoglobin (BldV) [Mass fraction] 0.6 % Normal 0.0-2.0 [facility] Comment on above: Order Comment: Speci men Type: VENOUS BLOOD SPECIMENOrdering Facility: [facility] Address: [address] [place], [place] [address] Result Comment: Carb oxyhemoglobin Reference Range for Smokers: 2.0-8.0% Performed By: #### 2 4344-4 ####[facility] LABIA [id number] [place] [address] [place] CO2 (BldV) [Partial pressure] 38 mm[Hg] Low 42-55 [facility] Comment on above: Order Comment: Speci men Type: VENOUS BLOOD SPECIMENOrdering Facility: [facility] Address: [address] Performed By: #### 2 4344-4 ####[facility] LABCLIA [id number] [place] [address] [place] CO2 [Moles/Vol] 26 mmol/L Normal 25-29 [facility] Comment on above: Order Comment: Speci men Type: VENOUS BLOOD SPECIMENOrdering Facility: [facility] Address: [address] Performed By: #### 2 4344-4 ####[facility] LABCLIA [id number] [place] [address] [place] CO2 adjusted to patient's actual temperature (BldV) [Partial pressure] 37 mmHg Low 42-55 [facility] Comment on above: Order Comment: Speci men Type: VENOUS BLOOD SPECIMENOrdering Facility: [facility] Address: [address] Performed By: #### 2 4344-4 ####[facility] LABCLIA [id number] [place] [address] [place] Glucose [Mass/Vol] 110 mg/dL High 60-105 [facility] Comment on above: Order Comment: Speci men Type: VENOUS BLOOD SPECIMENOrdering Facility: [facility] Address: [address] Performed By: #### 2 4344-4 ####[facility] LABCLIA [id number] [place] [address] [place] HCO3 (Bld) [Moles/Vol] 25 mmol/L Normal 24-28 [facility] Comment on above: Order Comment: Speci men Type: VENOUS BLOOD SPECIMENOrdering Facility: [facility] Address: [address] Performed By: #### 2 4344-4 ####[facility] LABCLIA [id number] [place] [address] [place] Hematocrit (Bld) [Volume fraction] 36.2 % Low 39.0-51.0 [facility] Comment on above: Order Comment: Speci men Type: VENOUS BLOOD SPECIMENOrdering Facility: [facility] Address: [address] [place] [address] Performed By: #### 2 4344-4 ####[facility] [id number] [place] [address] [place] Hemoglobin (Bld) [Mass/Vol] 11.8 g/dL Low 13.0-17.0 [facility] Comment on above: Order Comment: Speci men Type: VENOUS BLOOD SPECIMENOrdering Facility: [facility] Address: [address] [place] [address] Performed By: #### 2 4344-4 ####[facility] [id number] [place] [address] [place] Lactate [Moles/Vol] 1.2 mmol/L Normal 0.5-2.2 [facility] Comment on above: Order Comment: Speci men Type: VENOUS BLOOD SPECIMENOrdering Facility: [facility] Address: [address] [place] [address] Performed By: #### 2 4344-4 ####[facility] [id number] [place] [address] [place] Methemoglobin (Bld) [Mass fraction] 1.5 % Normal 0.0-1.5 [facility] Comment on above: Order Comment: Speci men Type: VENOUS BLOOD SPECIMENOrdering Facility: [facility] Address: [address] [place], [place] [address] Performed By: #### 2 4344-4 ####[facility] [id number] [place] [address] [place] O2 THERAPY RA=Room Air Normal [facility] Comment on above: Order Comment: Speci men Type: VENOUS BLOOD SPECIMENOrdering Facility: [facility] Address: [address] [place] [address] Performed By: #### 2 4344-4 ####[facility] LABCLIA [id number] [place] [address] [place] Oxygen (BldV) [Partial pressure] 56 mm[Hg] High 35-45 [facility] Comment on above: Order Comment: Speci men Type: VENOUS BLOOD SPECIMENOrdering Facility: [facility] Address: [address] Performed By: #### 2 4344-4 ####[facility] LABCLIA [id number] [place] [address] [place] Oxygen adjusted to patient's actual temperature (BldV) [Partial pressure] 54 mmHg High 35-45 [facility] Comment on above: Order Comment: Speci men Type: VENOUS BLOOD SPECIMENOrdering Facility: [facility] Address: [address] [place] [address] Performed By: #### 2 4344-4 ####[facility] LABCLIA [id number] [place] [address] [place] Oxygen saturation in Venous blood 88 % High 60-85 [facility] Comment on above: Order Comment: Speci men Type: VENOUS BLOOD SPECIMENOrdering Facility: [facility] Address: [address] [place] [address] Performed By: #### 2 4344-4 ####[facility] LABCLIA [id number] [place] [address] [place] Oxyhemoglobin (BldV) [Mass fraction] 86 % High 60-85 [facility] Comment on above: Order Comment: Speci men Type: VENOUS BLOOD SPECIMENOrdering Facility: [facility] Address: [address] [place] [address] Performed By: #### 2 4344-4 ####[facility] LABCLIA [id number] [place] [address] [place] pH (BldV) 7.43 [pH] High 7.32-7.42 [facility] Comment on above: Order Comment: Speci men Type: VENOUS BLOOD SPECIMENOrdering Facility: [facility] Address: [address] [place] [address] Performed By: #### 2 4344-4 ####[facility] LABIA [id number] [place] [address] [place] pH adjusted to patient's actual temperature (BldV) 7.44 High 7.32-7.42 [facility] Comment on above: Order Comment: Speci men Type: VENOUS BLOOD SPECIMENOrdering Facility: [facility] Address: [address] [place] [address] Performed By: #### 2 4344-4 ####[facility] LABIA [id number] [place] [address] [place] Potassium [Moles/Vol] 3.7 mmol/L Normal 3.5-5.0 [facility] Comment on above: Order Comment: Speci men Type: VENOUS BLOOD SPECIMENOrdering Facility: [facility] Address: [address] [place] [address] Performed By: #### 2 4344-4 ####[facility] LABIA [id number] [place] [address] [place] Sodium [Moles/Vol] 136 mmol/L Normal 136-144 [facility] Comment on above: Order Comment: Speci men Type: VENOUS BLOOD SPECIMENOrdering Facility: [facility] Address: [address] [place], [place] [address] Performed By: #### 2 4344-4 ####[facility] LABIA [id number] [place] [address] [place] MEDICAL EMERon 12-03-2022 MEDICAL KALEB Normal [facility] Magnesium SerPl-mCncon 12-03 Magnesium [Mass/Vol] 2.0 mg/dL Normal 1.7-2.3 [facility] Comment on above: Order Comment: Speci men Type: BLOOD SPECIMENOrdering Facility: [facility] Address: [address] [place] [address] Performed By: #### 2 4362-6, ####[facility] LABCLIA [id number] [place] [address] [place] NURSING PROGon 12-03-2022 NURSING PROG Normal [facility] Renal function 2000 panelon 12-03-2022 Albumin [Mass/Vol] 3.0 g/dL Low 3.9-4.9 [facility] Comment on above: Order Comment: Speci men Type: BLOOD SPECIMENOrdering Facility: [facility] Address: [address] [place], [place] [address] Performed By: #### 2 4362-6, ####[facility] LABCLIA [id number] [place] [address] [place] Anion gap [Moles/Vol] 9 mmol/L Normal 9-18 [facility] Comment on above: Order Comment: Speci men Type: BLOOD SPECIMENOrdering Facility: [facility] Address: [address] [place], [place] [address] Performed By: #### 2 4362-6, ####[facility] LABCLIA [id number] [place] [address] [place] Calcium [Mass/Vol] 8.9 mg/dL Normal 8.5-10.2 [facility] Comment on above: Order Comment: Speci men Type: BLOOD SPECIMENOrdering Facility: [facility] Address: [address] [place], [place] [address] Performed By: #### 2 4362-6, ####[facility] LABCLIA [id number] [address] STATES [facility] Chloride [Moles/Vol] 104 mmol/L Normal 97-105 [facility] Comment on above: Order Comment: Speci men Type: BLOOD SPECIMENOrdering Facility: [facility] Address: [address] [place] [address] Performed By: #### 2 4362-6, ####[facility] LABIA [id number] [address] [place] CO2 [Moles/Vol] 25 mmol/L Normal 22-30 [facility] Comment on above: Order Comment: Speci men Type: BLOOD SPECIMENOrdering Facility: [facility] Address: [address] [place] [address] Performed By: #### 2 4362-6, ####[facility] LABIA [id number] [address] [facility] Creatinine [Mass/Vol] 0.62 mg/dL Low 0.73-1.22 [facility] Comment on above: Order Comment: Speci men Type: BLOOD SPECIMENOrdering Facility: [facility] Address: [address] [place] [address] Performed By: #### 2 4362-6, ####[facility] LABIA [id number] [address] [facility] ESTIMATED GLOMERULAR FILTRATION RATE 107 mL/min/1.73m??? Normal >=60 [facility] Comment on above: Order Comment: Speci men Type: BLOOD SPECIMENOrdering Facility: [facility] Address: [address] [place] [address] Result Comment: Karina mated Glomerular Filtration Rate (eGFR) is calculated using the 2020 CKD-EPI creatinine equation. This equation utilizes serum creatinine, sex, and age as parameters. The creatinine assay has traceable calibration to isotope dilution-mass spectrometry. Refer to KDIGO guidelines for clinical interpretation. In patients with unstable renal function, e.g. those with acute kidney injury, the eGFR may not accurately reflect actual GFR. Performed By: #### 2 4362-6, ####[facility] LABIA [id number] [place] [address] [place] Glucose [Mass/Vol] 87 mg/dL Normal 74-99 [facility] Comment on above: Order Comment: Chaz trevizo Type: BLOOD SPECIMENOrdering Facility: [facility] Address: [address] [place] [address] Result Comment: The [place] Diabetes Association (ADA) provides guidance for cutoff values for fasting glucose and random glucose. The ADA defines fasting as no caloric intake for at least 8 hours. Fasting plasma glucose results between 100 to 125 mg/dL indicate increased risk for diabetes (prediabetes).Fasting plasma glucose results greater than or equal to 126 mg/dL meet the criteria for diagnosis of diabetes. In the absence of unequivocal hyperglycemia, results should be confirmed by repeat testing. In a patient with classic symptoms of hyperglycemia or hyperglycemic crisis, random plasma glucose results greater than or equal to 200 mg/dL meet the criteria for diagnosis of diabetes.Reference: Standards of Medical Care in Diabetes 2016, [place] Diabetes Association. Diabetes Care. 2016.39(Suppl 1). Performed By: #### 2 4362-6, ####[facility] LABIA [id number] [place] [address] [place] Phosphate [Mass/Vol] 2.4 mg/dL Low 2.7-4.8 [facility] Comment on above: Order Comment: Chaz trevizo Type: BLOOD SPECIMENOrdering Facility: [facility] Address: [address] [place] [address] Performed By: #### 2 4362-6, ####[facility] LABIA [id number] [place] [address] [place] Potassium [Moles/Vol] 3.8 mmol/L Normal 3.7-5.1 [facility] Comment on above: Order Comment: Chaz trevizo Type: BLOOD SPECIMENOrdering Facility: [facility] Address: [address] Performed By: #### 2 4362-6, ####[facility] LABCLIA [id number] [place] [address] [place] Sodium [Moles/Vol] 138 mmol/L Normal 136-144 [facility] Comment on above: Order Comment: Speci men Type: BLOOD SPECIMENOrdering Facility: [facility] Address: [address] [place] [address] Performed By: #### 2 4362-6, ####[facility] LABIA [id number] [place] [address] [place] Urea nitrogen [Mass/Vol] 24 mg/dL Normal 9-24 [facility] Comment on above: Order Comment: Speci men Type: BLOOD SPECIMENOrdering Facility: [facility] Address: [address] [place] [address] Performed By: #### 2 4362-6, ####[facility] LABIA [id number] [place] [address] [place] THERAPY NTon 12-03-2022 THERAPY NT Normal [facility] Basic metabolic 2000 panelon 12-02-2022 Anion gap [Moles/Vol] 7 mmol/L Low 9-18 [facility] Comment on above: Order Comment: Speci men Type: BLOOD SPECIMENOrdering Facility: [facility] Address: [address] [place], [place] [address] Performed By: #### 1 9123-9, 2777-1, 23825-2 ####[facility] LABIA [id number] [place] [address] [place] Calcium [Mass/Vol] 8.5 mg/dL Normal 8.5-10.2 [facility] Comment on above: Order Comment: Speci men Type: BLOOD SPECIMENOrdering Facility: [facility] Address: [address] [place] [address] Performed By: #### 1 9123-9, 2777-1, 34169-8 ####[facility] LABCLIA [id number] [place] [address] [place] Chloride [Moles/Vol] 106 mmol/L High 97-105 [facility] Comment on above: Order Comment: Speci men Type: BLOOD SPECIMENOrdering Facility: [facility] Address: [address] [place] [address] Performed By: #### 1 9123-9, 2777-1, 21182-4 ####[facility] LABCLIA [id number] [place] [address] [place] CO2 [Moles/Vol] 27 mmol/L Normal 22-30 [facility] Comment on above: Order Comment: Speci men Type: BLOOD SPECIMENOrdering Facility: [facility] Address: [address] [place] [address] Performed By: #### 1 9123-9, 2777, 86830-9 ####[facility] LABIA [id number] [place] [address] [place] Creatinine [Mass/Vol] 0.69 mg/dL Low 0.73-1.22 [facility] Comment on above: Order Comment: Speci men Type: BLOOD SPECIMENOrdering Facility: [facility] Address: [address] [place], [place] [address] Performed By: #### 1 9123-9, 2777, 90482-1 ####[facility] LABIA [id number] [place] [address] [place] ESTIMATED GLOMERULAR FILTRATION RATE 103 mL/min/1.73m??? Normal >=60 [facility] Comment on above: Order Comment: Speci men Type: BLOOD SPECIMENOrdering Facility: [facility] Address: [address] [place] [address] Result Comment: Karina mated Glomerular Filtration Rate (eGFR) is calculated using the 2020 CKD-EPI creatinine equation. This equation utilizes serum creatinine, sex, and age as parameters. The creatinine assay has traceable calibration to isotope dilution-mass spectrometry. Refer to KDIGO guidelines for clinical interpretation. In patients with unstable renal function, e.g. those with acute kidney injury, the eGFR may not accurately reflect actual GFR. Performed By: #### 1 9123-9, 2777-1, 53429-1 ####[facility] LABCLIA [id number] [place] [address] [place] Glucose [Mass/Vol] 78 mg/dL Normal 74-99 [facility] Comment on above: Order Comment: Chaz trevizo Type: BLOOD SPECIMENOrdering Facility: [facility] Address: [address] [place], [place] [address] Result Comment: The [place] Diabetes Association (ADA) provides guidance for cutoff values for fasting glucose and random glucose. The ADA defines fasting as no caloric intake for at least 8 hours. Fasting plasma glucose results between 100 to 125 mg/dL indicate increased risk for diabetes (prediabetes).Fasting plasma glucose results greater than or equal to 126 mg/dL meet the criteria for diagnosis of diabetes. In the absence of unequivocal hyperglycemia, results should be confirmed by repeat testing. In a patient with classic symptoms of hyperglycemia or hyperglycemic crisis, random plasma glucose results greater than or equal to 200 mg/dL meet the criteria for diagnosis of diabetes.Reference: Standards of Medical Care in Diabetes 2016, [place] Diabetes Association. Diabetes Care. 2016.39(Suppl 1). Performed By: #### 1 9123-9, 2777-, 14487-0 ####[facility] LABCLIA [id number] [place] [id number] [place] Potassium [Moles/Vol] 3.6 mmol/L Low 3.7-5.1 [facility] Comment on above: Order Comment: Chaz trevizo Type: BLOOD SPECIMENOrdering Facility: [facility] Address: [address] [place] [address] Performed By: #### 1 9123-9, 2777-, 74880-2 ####[facility] LABCLIA [id number] [place] [address] [place] Sodium [Moles/Vol] 140 mmol/L Normal 136-144 [facility] Comment on above: Order Comment: Speci men Type: BLOOD SPECIMENOrdering Facility: [facility] Address: [address] [place] [address] Performed By: #### 1 9123-9, 2777-1, 80593-1 ####[facility] LABCLIA [id number] [place] [address] [place] Urea nitrogen [Mass/Vol] 26 mg/dL High 9-24 [facility] Comment on above: Order Comment: Speci men Type: BLOOD SPECIMENOrdering Facility: [facility] Address: [address] [place] [address] Performed By: #### 1 9123-9, 2777-1, 67350-8 ####[facility] LABCLIA [id number] [place] [address] [place] CASE MANAGEMon 12-02-2022 CASE MANAGEM Normal [facility] CBC panel Auto (Bld)on 12-02 Erythrocyte distribution width (RBC) [Ratio] 16.2 % High 11.5-15.0 [facility] Comment on above: Order Comment: Speci men Type: BLOOD SPECIMENOrdering Facility: [facility] Address: [address] [place] [address] Performed By: #### 5 8410-2 ####[facility] LABIA [id number] [address] [place] Hematocrit (Bld) [Volume fraction] 39.0 % Normal 39.0-51.0 [facility] Comment on above: Order Comment: Speci men Type: BLOOD SPECIMENOrdering Facility: [facility] Address: [address] [place] [address] Performed By: #### 5 8410-2 ####[facility] LABCLIA [id number] [place] [address] [place] Hemoglobin (Bld) [Mass/Vol] 12.6 g/dL Low 13.0-17.0 [facility] Comment on above: Order Comment: Speci men Type: BLOOD SPECIMENOrdering Facility: [facility] Address: [address] [place] [address] Performed By: #### 5 8410-2 ####[facility] LABIA [id number] [address] [place] MCH (RBC) [Entitic mass] 27.8 pg Normal 26.0-34.0 [facility] Comment on above: Order Comment: Speci men Type: BLOOD SPECIMENOrdering Facility: [facility] Address: [address] [place] [address] Performed By: #### 5 8410-2 ####[facility] [id number] [address] [place] MCHC (RBC) [Mass/Vol] 32.3 g/dL Normal 30.5-36.0 [facility] Comment on above: Order Comment: Speci men Type: BLOOD SPECIMENOrdering Facility: [facility] Address: [address] [place] [address] Performed By: #### 5 8410-2 ####[facility] [id number] [address] [place] MCV (RBC) [Entitic vol] 85.9 fL Normal 80.0-100.0 [facility] Comment on above: Order Comment: Speci men Type: BLOOD SPECIMENOrdering Facility: [facility] Address: [address] [place] [address] Performed By: #### 5 8410-2 ####[facility] [id number] [place] [address] [place] Nucleated RBC (Bld) [#/Vol] 10*3/uL Normal <0.01 [facility] Comment on above: Order Comment: Speci men Type: BLOOD SPECIMENOrdering Facility: [facility] Address: [address] [place] [address] Performed By: #### 5 8410-2 ####[facility] LABCLIA [id number] [place] [address] [place] Platelet mean volume (Bld) [Entitic vol] 12.8 fL High 9.0-12.7 [facility] Comment on above: Order Comment: Speci men Type: BLOOD SPECIMENOrdering Facility: [facility] Address: [address] [place] [address] Performed By: #### 5 8410-2 ####[facility] LABIA [id number] [place] [address] [place] Platelets (Bld) [#/Vol] 129 10*3/uL Low 150-400 [facility] Comment on above: Order Comment: Speci men Type: BLOOD SPECIMENOrdering Facility: [facility] Address: [address] [place] [address] Result Comment: No c lot detected.Results checked and verified. Performed By: #### 5 8410-2 ####[facility] LABIA [id number] [place] [address] [place] RBC (Bld) [#/Vol] 4.54 10*6/uL Normal 4.20-6.00 [facility] Comment on above: Order Comment: Speci men Type: BLOOD SPECIMENOrdering Facility: [facility] Address: [address] [place] [address] Performed By: #### 5 8410-2 ####[facility] LABCLIA [id number] [place] [address] [place] WBC (Bld) [#/Vol] 9.16 10*3/uL Normal 3.70-11.00 [facility] Comment on above: Order Comment: Speci men Type: BLOOD SPECIMENOrdering Facility: [facility] Address: [address] [place] [address] Performed By: #### 5 8410-2 ####[facility] LABIA [id number] [place] [address] [place] CONSULT PROGon 12-02-2022 CONSULT PROG Normal [facility] ECG COMPLETEon 12-02-2022 ECG COMPLETE Normal [facility] Magnesium SerPl-mCncon 12-02 Magnesium [Mass/Vol] 1.8 mg/dL Normal 1.7-2.3 [facility] Comment on above: Order Comment: Speci men Type: BLOOD SPECIMENOrdering Facility: [facility] Address: [address] [place] [address] Performed By: #### 1 9123-9, 2777-1, 32483-4 ####[facility] LABIA [id number] [place] [address] [place] Phosphate SerPl-mCncon 12-02 Phosphate [Mass/Vol] 2.7 mg/dL Normal 2.7-4.8 [facility] Comment on above: Order Comment: Speci men Type: BLOOD SPECIMENOrdering Facility: [facility] Address: [address] [place] [address] Performed By: #### 1 9123-9, 2777-1, 62489-9 ####[facility] LABIA [id number] [place] [id number] [place] THERAPY NTon 12-02-2022 THERAPY NT Normal [facility] Basic metabolic 2000 panelon 12-01-2022 Anion gap [Moles/Vol] 10 mmol/L Normal 9-18 [facility] Comment on above: Order Comment: Speci men Type: BLOOD SPECIMENOrdering Facility: [facility] Address: [address] [place] [address] Performed By: #### 2 4321-2 ####[facility] LABCLIA [id number] [place] [id number] [place] Anion gap [Moles/Vol] 7 mmol/L Low 9-18 [facility] Comment on above: Order Comment: Speci men Type: BLOOD SPECIMENOrdering Facility: [facility] Address: [address] [place] [address] Performed By: #### 2 4321-2, 2776-10, ####[facility] LABCLIA [id number] [place] [address] [place] Calcium [Mass/Vol] 8.8 mg/dL Normal 8.5-10.2 [facility] Comment on above: Order Comment: Speci men Type: BLOOD SPECIMENOrdering Facility: [facility] Address: [address] [place] [address] Performed By: #### 2 4321-2 ####[facility] LABCLIA [id number] [place] [address] [place] Calcium [Mass/Vol] 8.9 mg/dL Normal 8.5-10.2 [facility] Comment on above: Order Comment: Speci men Type: BLOOD SPECIMENOrdering Facility: [facility] Address: [address] [place] [address] Performed By: #### 2 4321-2, 2776-10, ####[facility] LABCLIA [id number] [place] [address] [place] Chloride [Moles/Vol] 103 mmol/L Normal 97-105 [facility] Comment on above: Order Comment: Speci men Type: BLOOD SPECIMENOrdering Facility: [facility] Address: [address] [place] [address] Performed By: #### 2 4321-2 ####[facility] LABCLIA [id number] [place] [address] [place] Chloride [Moles/Vol] 104 mmol/L Normal 97-105 [facility] Comment on above: Order Comment: Speci men Type: BLOOD SPECIMENOrdering Facility: [facility] Address: [address] [place] [address] Performed By: #### 2 4321-2, 2776-10, ####[facility] LABCLIA [id number] [place] [address] [place] CO2 [Moles/Vol] 25 mmol/L Normal 22-30 [facility] Comment on above: Order Comment: Speci men Type: BLOOD SPECIMENOrdering Facility: [facility] Address: [address] [place], [place] [address] Performed By: #### 2 4321-2 ####[facility] LABCLIA [id number] [address] Performed By: #### 2 4321-2, 2776-10, ####[facility] LABCLIA [id number] [place] [address] [place] Creatinine [Mass/Vol] 0.93 mg/dL Normal 0.73-1.22 [facility] Comment on above: Order Comment: Speci men Type: BLOOD SPECIMENOrdering Facility: [facility] Address: [address] [place] [address] Performed By: #### 2 1-2 ####[facility] LABCLIA [id number] [place] [id number] [facility] Performed By: #### 2 4321-2, 2776-10, ####[facility] LABCLIA [id number] [place] [id number] [place] ESTIMATED GLOMERULAR FILTRATION RATE 92 mL/min/1.73m??? Normal >=60 [facility] Comment on above: Order Comment: Speci men Type: BLOOD SPECIMENOrdering Facility: [facility] Address: [facility] [place] [id number] Result Comment: Karina mated Glomerular Filtration Rate (eGFR) is calculated using the 2020 CKD-EPI creatinine equation. This equation utilizes serum creatinine, sex, and age as parameters. The creatinine assay has traceable calibration to isotope dilution-mass spectrometry. Refer to KDIGO guidelines for clinical interpretation. In patients with unstable renal function, e.g. those with acute kidney injury, the eGFR may not accurately reflect actual GFR. Performed By: #### 2 4321-2 ####[facility] LABCLIA [id number] [address] [place] Performed By: #### 2 4321-2, 2776-, ####[facility] LABCLIA [id number] [place] [address] [place] Glucose [Mass/Vol] 81 mg/dL Normal 74-99 [facility] Comment on above: Order Comment: Speci men Type: BLOOD SPECIMENOrdering Facility: [facility] Address: [address] [place] [address] Result Comment: The [place] Diabetes Association (ADA) provides guidance for cutoff values for fasting glucose and random glucose. The ADA defines fasting as no caloric intake for at least 8 hours. Fasting plasma glucose results between 100 to 125 mg/dL indicate increased risk for diabetes (prediabetes).Fasting plasma glucose results greater than or equal to 126 mg/dL meet the criteria for diagnosis of diabetes. In the absence of unequivocal hyperglycemia, results should be confirmed by repeat testing. In a patient with classic symptoms of hyperglycemia or hyperglycemic crisis, random plasma glucose results greater than or equal to 200 mg/dL meet the criteria for diagnosis of diabetes.Reference: Standards of Medical Care in Diabetes 2016, [place] [employer] Association. Diabetes Care. 2016.39(Suppl 1). Performed By: #### 2 4321-2 ####[facility] LABCLIA [id number] [place] [id number] [place] Performed By: #### 2 4321-2, 7-, ####[facility] LABCLIA [id number] [place] [address] [place] Potassium [Moles/Vol] 4.2 mmol/L Normal 3.7-5.1 [facility] Comment on above: Order Comment: Speci men Type: BLOOD SPECIMENOrdering Facility: [facility] Address: [address] [place] [address] Performed By: #### 2 4321-2 ####[facility] LABCLIA [id number] [place] [address] [place] Potassium [Moles/Vol] 4.3 mmol/L Normal 3.7-5.1 [facility] Comment on above: Order Comment: Speci men Type: BLOOD SPECIMENOrdering Facility: [facility] Address: [address] [place] [address] Performed By: #### 2 4321-2, 2776-10, ####[facility] LABCLIA [id number] [place] [address] [place] Sodium [Moles/Vol] 138 mmol/L Normal 136-144 [facility] Comment on above: Order Comment: Speci men Type: BLOOD SPECIMENOrdering Facility: [facility] Address: [address] [place], [place] [address] Performed By: #### 2 4321-2 ####[facility] LABCLIA [id number] [place] [address] [place] Sodium [Moles/Vol] 136 mmol/L Normal 136-144 [facility] Comment on above: Order Comment: Speci men Type: BLOOD SPECIMENOrdering Facility: [facility] Address: [address] [place] [address] Performed By: #### 2 4321-2, 2776-10, ####[facility] LABCLIA [id number] [place] [address] [place] Urea nitrogen [Mass/Vol] 34 mg/dL High 9-24 [facility] Comment on above: Order Comment: Speci men Type: BLOOD SPECIMENOrdering Facility: [facility] Address: [address] Performed By: #### 2 4321-2 ####[facility] LABCLIA [id number] [place] [address] [place] Urea nitrogen [Mass/Vol] 35 mg/dL High 9-24 [facility] Comment on above: Order Comment: Speci men Type: BLOOD SPECIMENOrdering Facility: [facility] Address: [address] [place] [address] Performed By: #### 2 4321-2, 2777-1, 84226-6 ####[facility] LABCLIA [id number] [place] [address] [place] CBC panel Auto (Bld)on 12-01 Erythrocyte distribution width (RBC) [Ratio] 16.6 % High 11.5-15.0 [facility] Comment on above: Order Comment: Speci men Type: BLOOD SPECIMENOrdering Facility: [facility] Address: [address] [place] [address] Performed By: #### 5 8410-2 ####[facility] LABCLIA [id number] [place] [address] [place] Hematocrit (Bld) [Volume fraction] 38.1 % Low 39.0-51.0 [facility] Comment on above: Order Comment: Speci men Type: BLOOD SPECIMENOrdering Facility: [facility] Address: [address] [place], [place] [address] Performed By: #### 5 8410-2 ####[facility] LABCLIA [id number] [place] [address] [place] Hemoglobin (Bld) [Mass/Vol] 12.5 g/dL Low 13.0-17.0 [facility] Comment on above: Order Comment: Speci men Type: BLOOD SPECIMENOrdering Facility: [facility] Address: [address] [place] [address] Performed By: #### 5 8410-2 ####[facility] LABIA [id number] [address] [place] [facility] MCH (RBC) [Entitic mass] 28.1 pg Normal 26.0-34.0 [facility] Comment on above: Order Comment: Speci men Type: BLOOD SPECIMENOrdering Facility: [facility] Address: [address] [place] [address] Performed By: #### 5 8410-2 ####[facility] LABIA [id number] [address] [place] MCHC (RBC) [Mass/Vol] 32.8 g/dL Normal 30.5-36.0 [facility] Comment on above: Order Comment: Speci men Type: BLOOD SPECIMENOrdering Facility: [facility] Address: [address] Performed By: #### 5 8410-2 ####[facility] LABIA [id number] [address] [place] MCV (RBC) [Entitic vol] 85.6 fL Normal 80.0-100.0 [facility] Comment on above: Order Comment: Speci men Type: BLOOD SPECIMENOrdering Facility: [facility] Address: [address] Performed By: #### 5 8410-2 ####[facility] LABIA [id number] [address] [place] Nucleated RBC (Bld) [#/Vol] 10*3/uL Normal <0.01 [facility] Comment on above: Order Comment: Speci men Type: BLOOD SPECIMENOrdering Facility: [facility] Address: [address] Performed By: #### 5 8410-2 ####[facility] LABCLIA [id number] [place] [address] [place] Platelet mean volume (Bld) [Entitic vol] 12.5 fL Normal 9.0-12.7 [facility] Comment on above: Order Comment: Speci men Type: BLOOD SPECIMENOrdering Facility: [facility] Address: [address] [place] [address] Performed By: #### 5 8410-2 ####[facility] LABIA [id number] [place] [address] [place] Platelets (Bld) [#/Vol] 121 10*3/uL Low 150-400 [facility] Comment on above: Order Comment: Speci men Type: BLOOD SPECIMENOrdering Facility: [facility] Address: [address] [place] [address] Result Comment: Resu lts checked and verified.No clot detected. Performed By: #### 5 8410-2 ####[facility] LABIA [id number] [place] [address] [place] RBC (Bld) [#/Vol] 4.45 10*6/uL Normal 4.20-6.00 [facility] Comment on above: Order Comment: Speci men Type: BLOOD SPECIMENOrdering Facility: [facility] Address: [address] [place], [place] [address] Performed By: #### 5 8410-2 ####[facility] LABCLIA [id number] [place] [address] [place] WBC (Bld) [#/Vol] 9.67 10*3/uL Normal 3.70-11.00 [facility] Comment on above: Order Comment: Speci men Type: BLOOD SPECIMENOrdering Facility: [facility] Address: [address] [place], [place] [address] Performed By: #### 5 8410-2 ####[facility] LABCLIA [id number] [address] [address] [place] CONSULTon 12-01-2022 CONSULT Normal [facility] ECG COMPLETEon 12-01-2022 ECG COMPLETE Normal [facility] HISTORY PHYSICALon HISTORY PHYSICAL Normal [facility] Magnesium SerPl-mCncon 12-01 Magnesium [Mass/Vol] 2.0 mg/dL Normal 1.7-2.3 [facility] Comment on above: Order Comment: Speci men Type: BLOOD SPECIMENOrdering Facility: [facility] Address: [address] [place], [place] [address] Performed By: #### 2 4321-2, 2777-1, ####[facility] LABCLIA [id number] [address] [address] [place] NUTRITIONon 12-01-2022 NUTRITION Normal [facility] Phosphate SerPl-ncon 12-01 Phosphate [Mass/Vol] 2.3 mg/dL Low 2.7-4.8 [facility] Comment on above: Order Comment: Speci men Type: BLOOD SPECIMENOrdering Facility: [facility] Address: [address] [place] [address] Performed By: #### 2 4321-2, 2777-1, ####[facility] LABCLIA [id number] [place] [id number] [place] SEPSIS LACTATEon 12-01-2022 Lactate [Moles/Vol] 0.9 mmol/L Normal <=2.0 [facility] Comment on above: Order Comment: Speci men Type: BLOOD SPECIMENOrdering Facility: [facility] Address: [address] [place], [place] [address] Performed By: #### S LACT ####[facility] LABCLIA [id number] [address] [address] [place] THERAPY NTon 12-01-2022 THERAPY NT Normal [facility] US KIDNEY/BLADDERon 12-01-19 US KIDNEY/BLADDER Normal [facility] US LEG VEIN DVT [facility] LABo n 12-01-2022 US LEG VEIN DVT [facility] Normal [facility] Bacteria Bld Culton 11-30-19 Bacteria identified Cx Nom (Bld) CULTURE, BLOOD: No growth 5 days Normal [facility] Comment on above: Performed By: #### 6 00-7 ####[facility] LABCLIA [id number] [place] [address] [place] Basic metabolic 2000 panelon 11-30-2022 Anion gap [Moles/Vol] 9 mmol/L Normal 9-18 [facility] Comment on above: Order Comment: Speci men Type: BLOOD SPECIMENOrdering Facility: [facility] Address: [address] [place] [address] Performed By: #### 2 777-1, , ####[facility] LABCLIA [id number] [place] [address] [place] Calcium [Mass/Vol] 8.7 mg/dL Normal 8.5-10.2 [facility] Comment on above: Order Comment: Speci men Type: BLOOD SPECIMENOrdering Facility: [facility] Address: [address] [place] [address] Performed By: #### 2 777-1, , ####[facility] LABCLIA [id number] [place] [address] [place] Chloride [Moles/Vol] 106 mmol/L High 97-105 [facility] Comment on above: Order Comment: Speci men Type: BLOOD SPECIMENOrdering Facility: [facility] Address: [address] [place], [place] [address] Performed By: #### 2 777-1, 65630-3, ####[facility] LABCLIA [id number] [address] [address] [place] CO2 [Moles/Vol] 22 mmol/L Normal 22-30 [facility] Comment on above: Order Comment: Speci men Type: BLOOD SPECIMENOrdering Facility: [facility] Address: [address] [place] [address] Performed By: #### 2 777-1, 21561-1, ####[facility] LABCLIA [id number] [place] [address] [place] Creatinine [Mass/Vol] 0.96 mg/dL Normal 0.73-1.22 [facility] Comment on above: Order Comment: Princessi men Type: BLOOD SPECIMENOrdering Facility: [facility] Address: [address] [place] [address] Performed By: #### 2 777-1, 49579-8, ####[facility] [id number] [address] STATES [facility] ESTIMATED GLOMERULAR FILTRATION RATE 88 mL/min/1.73m??? Normal >=60 [facility] Comment on above: Order Comment: Chaz men Type: BLOOD SPECIMENOrdering Facility: [facility] Address: [address] [place] [address] Result Comment: Karina mated Glomerular Filtration Rate (eGFR) is calculated using the 2020 CKD-EPI creatinine equation. This equation utilizes serum creatinine, sex, and age as parameters. The creatinine assay has traceable calibration to isotope dilution-mass spectrometry. Refer to KDIGO guidelines for clinical interpretation. In patients with unstable renal function, e.g. those with acute kidney injury, the eGFR may not accurately reflect actual GFR. Performed By: #### 2 777-1, 52021-6, ####[facility] LABIA [id number] [place] [address] [place] Glucose [Mass/Vol] 109 mg/dL High 74-99 [facility] Comment on above: Order Comment: Speci men Type: BLOOD SPECIMENOrdering Facility: [facility] Address: [address] [place] [id number] Result Comment: The [place] Diabetes Association (ADA) provides guidance for cutoff values for fasting glucose and random glucose. The ADA defines fasting as no caloric intake for at least 8 hours. Fasting plasma glucose results between 100 to 125 mg/dL indicate increased risk for diabetes (prediabetes).Fasting plasma glucose results greater than or equal to 126 mg/dL meet the criteria for diagnosis of diabetes. In the absence of unequivocal hyperglycemia, results should be confirmed by repeat testing. In a patient with classic symptoms of hyperglycemia or hyperglycemic crisis, random plasma glucose results greater than or equal to 200 mg/dL meet the criteria for diagnosis of diabetes.Reference: Standards of Medical Care in Diabetes 2016, [place] [employer] Association. Diabetes Care. 2016.39(Suppl 1). Performed By: #### 2 777-1, 04421-9, ####[facility] LABCLIA [id number] [place] [address] [place] Potassium [Moles/Vol] 4.3 mmol/L Normal 3.7-5.1 [facility] Comment on above: Order Comment: Speci men Type: BLOOD SPECIMENOrdering Facility: [facility] Address: [address] [place] [id number] Performed By: #### 2 777-1, , ####[facility] LABCLIA [id number] [place] [address] [place] Sodium [Moles/Vol] 137 mmol/L Normal 136-144 [facility] Comment on above: Order Comment: Speci men Type: BLOOD SPECIMENOrdering Facility: [facility] Address: [address] [place] [id number] Performed By: #### 2 777-1, , ####[facility] LABCLIA [id number] [place] [address] [place] Urea nitrogen [Mass/Vol] 36 mg/dL High 9-24 [facility] Comment on above: Order Comment: Speci men Type: BLOOD SPECIMENOrdering Facility: [facility] Address: [address] [place] [address] Performed By: #### 2 777-1, 63055-3, 28649-8 ####[facility] LABCLIA [id number] [place] [address] [place] CBC panel Auto (Bld)on 11-30 Erythrocyte distribution width (RBC) [Ratio] 17.2 % High 11.5-15.0 [facility] Comment on above: Order Comment: Speci men Type: BLOOD SPECIMENOrdering Facility: [facility] Address: [address] [place] [address] Performed By: #### 5 8410-2 ####[facility] LABIA [id number] [address] [place] Hematocrit (Bld) [Volume fraction] 36.4 % Low 39.0-51.0 [facility] Comment on above: Order Comment: Speci men Type: BLOOD SPECIMENOrdering Facility: [facility] Address: [address] [place] [address] Performed By: #### 5 8410-2 ####[facility] LABIA [id number] [address] [place] Hemoglobin (Bld) [Mass/Vol] 11.7 g/dL Low 13.0-17.0 [facility] Comment on above: Order Comment: Speci men Type: BLOOD SPECIMENOrdering Facility: [facility] Address: [address] [place] [address] Performed By: #### 5 8410-2 ####[facility] LABIA [id number] [place] [address] [place] MCH (RBC) [Entitic mass] 27.9 pg Normal 26.0-34.0 [facility] Comment on above: Order Comment: Speci men Type: BLOOD SPECIMENOrdering Facility: [facility] Address: [address] Performed By: #### 5 8410-2 ####[facility] LABCLIA [id number] [address] STATES [facility] MCHC (RBC) [Mass/Vol] 32.1 g/dL Normal 30.5-36.0 [facility] Comment on above: Order Comment: Speci men Type: BLOOD SPECIMENOrdering Facility: [facility] Address: [address] [place] [address] Performed By: #### 5 8410-2 ####[facility] LABCLIA [id number] [place] [address] [place] MCV (RBC) [Entitic vol] 86.9 fL Normal 80.0-100.0 [facility] Comment on above: Order Comment: Speci men Type: BLOOD SPECIMENOrdering Facility: [facility] Address: [address] [place] [address] Performed By: #### 5 8410-2 ####[facility] LABIA [id number] [place] [address] [place] Nucleated RBC (Bld) [#/Vol] 10*3/uL Normal <0.01 [facility] Comment on above: Order Comment: Speci men Type: BLOOD SPECIMENOrdering Facility: [facility] Address: [address] [place], [place] [address] Performed By: #### 5 8410-2 ####[facility] LABCLIA [id number] [place] [address] [place] Platelet mean volume (Bld) [Entitic vol] Normal [facility] Comment on above: Order Comment: Speci men Type: BLOOD SPECIMENOrdering Facility: [facility] Address: [address] [place] [address] Result Comment: Unab le to Report. Performed By: #### 5 8410-2 ####[facility] LABCLIA [id number] [place] [address] [place] Platelets (Bld) [#/Vol] 103 10*3/uL Low 150-400 [facility] Comment on above: Order Comment: Speci men Type: BLOOD SPECIMENOrdering Facility: [facility] Address: [address] [place] [address] Result Comment: No c lot detected.Results checked and verified. Performed By: #### 5 8410-2 ####[facility] [id number] [place] [address] [place] RBC (Bld) [#/Vol] 4.19 10*6/uL Low 4.20-6.00 [facility] Comment on above: Order Comment: Speci men Type: BLOOD SPECIMENOrdering Facility: [facility] Address: [address] [place] [address] Performed By: #### 5 8410-2 ####[facility] [id number] [place] [address] [place] WBC (Bld) [#/Vol] 9.45 10*3/uL Normal 3.70-11.00 [facility] Comment on above: Order Comment: Speci men Type: BLOOD SPECIMENOrdering Facility: [facility] Address: [address] [place] [address] Performed By: #### 5 8410-2 ####[facility] [id number] [place] [address] [place] ECG COMPLETEon 11-30-2022 ECG COMPLETE Normal [facility] Magnesium SerPl-mCncon 11-30 Magnesium [Mass/Vol] 2.1 mg/dL Normal 1.7-2.3 [facility] Comment on above: Order Comment: Speci men Type: BLOOD SPECIMENOrdering Facility: [facility] Address: [address] [place] [address] Performed By: #### 2 777-1, 29702-0, ####[facility] LABCLIA [id number] [place] [id number] [place] Phosphate SerPl-mCncon 11-30 Phosphate [Mass/Vol] 2.8 mg/dL Normal 2.7-4.8 [facility] Comment on above: Order Comment: Speci men Type: BLOOD SPECIMENOrdering Facility: [facility] Address: [address] [place] [address] Performed By: #### 2 777-1, 76250-4, ####[facility] LABIA [id number] [place] [address] [place] Ammonia Plas-sCncon 11-29-19 23 Ammonia (P) [Moles/Vol] 22 umol/L Normal 16-60 [facility] Comment on above: Order Comment: Speci men Type: BLOOD SPECIMENOrdering Facility: [facility] Address: [address] [place] [address] Result Comment: Resu lt may be falsely increased due to the fact that the sample was not received on ice. Performed By: #### 1 6362-6 ####[facility] LABIA [id number] [place] [address] [place] Basic metabolic 2000 panelon 11-29-2022 Anion gap [Moles/Vol] 7 mmol/L Low 9-18 [facility] Comment on above: Order Comment: Speci men Type: BLOOD SPECIMENOrdering Facility: [facility] Address: [address] [place] [address] Performed By: #### 1 9123-9, 2157-6, LIPNF, 82348-8, 3016-3, 2777-1, 3024-7 ####[facility] LABCLIA [id number] [place] [id number] [place] Calcium [Mass/Vol] 8.7 mg/dL Normal 8.5-10.2 [facility] Comment on above: Order Comment: Speci men Type: BLOOD SPECIMENOrdering Facility: [facility] Address: [address] [place] [address] Performed By: #### 1 9123-9, 2156-6, LIPNF, 71776-9, 3016-3, 2777-1, 7 ####[facility] LABCLIA [id number] [place] [address] [place] Chloride [Moles/Vol] 111 mmol/L High 97-105 [facility] Comment on above: Order Comment: Speci men Type: BLOOD SPECIMENOrdering Facility: [facility] Address: [address] [place] [address] Performed By: #### 1 91-9, 6, LIPNF, 92814-7, 3016-3, 2776-1, 3024-04 ####[facility] LABCLIA [id number] [place] [address] [place] CO2 [Moles/Vol] 23 mmol/L Normal 22-30 [facility] Comment on above: Order Comment: Speci men Type: BLOOD SPECIMENOrdering Facility: [facility] Address: [address] [place] [address] Performed By: #### 1 9123-9, 6, LIPNF, 52008-5, 3016-3, 277-1, 3024-04 ####[facility] LABCLIA [id number] [place] [address] [place] Creatinine [Mass/Vol] 1.08 mg/dL Normal 0.73-1.22 [facility] Comment on above: Order Comment: Speci men Type: BLOOD SPECIMENOrdering Facility: [facility] Address: [address] [place] [address] Performed By: #### 1 9123-9, 2156-6, LIPNF, 97724-5, 3016-3, 2777-1, 3024-04 ####[facility] LABCLIA [id number] [place] [address] [place] ESTIMATED GLOMERULAR FILTRATION RATE 77 mL/min/1.73m??? Normal >=60 [facility] Comment on above: Order Comment: Chaz trevizo Type: BLOOD SPECIMENOrdering Facility: [facility] Address: [address] [place] [address] Result Comment: Karina mated Glomerular Filtration Rate (eGFR) is calculated using the 2020 CKD-EPI creatinine equation. This equation utilizes serum creatinine, sex, and age as parameters. The creatinine assay has traceable calibration to isotope dilution-mass spectrometry. Refer to KDIGO guidelines for clinical interpretation. In patients with unstable renal function, e.g. those with acute kidney injury, the eGFR may not accurately reflect actual GFR. Performed By: #### 1 9123-9, 2157-6, LIPNF, 45401-3, 3016-3, 2777-1, 3024-7 ####[facility] LABIA [id number] [place] [address] [place] Glucose [Mass/Vol] 94 mg/dL Normal 74-99 [facility] Comment on above: Order Comment: Chaz trevizo Type: BLOOD SPECIMENOrdering Facility: [facility] Address: [address] [place] [address] Result Comment: The [place] Diabetes Association (ADA) provides guidance for cutoff values for fasting glucose and random glucose. The ADA defines fasting as no caloric intake for at least 8 hours. Fasting plasma glucose results between 100 to 125 mg/dL indicate increased risk for diabetes (prediabetes).Fasting plasma glucose results greater than or equal to 126 mg/dL meet the criteria for diagnosis of diabetes. In the absence of unequivocal hyperglycemia, results should be confirmed by repeat testing. In a patient with classic symptoms of hyperglycemia or hyperglycemic crisis, random plasma glucose results greater than or equal to 200 mg/dL meet the criteria for diagnosis of diabetes.Reference: Standards of Medical Care in Diabetes 2016, [place] Diabetes Association. Diabetes Care. 2016.39(Suppl 1). Performed By: #### 1 9123-9, 2157-6, LIPNF, 77149-0, 3016-3, 2777-1, 3024-7 ####[facility] LABCLIA [id number] [place] [id number] [place] Potassium [Moles/Vol] 4.2 mmol/L Normal 3.7-5.1 [facility] Comment on above: Order Comment: Speci men Type: BLOOD SPECIMENOrdering Facility: [facility] Address: [address] [place] [address] Performed By: #### 1 9123-9, 2156-6, LIPNF, 60113-4, 6-3, 2776-1, 7 ####[facility] LABCLIA [id number] [place] [address] [place] Sodium [Moles/Vol] 141 mmol/L Normal 136-144 [facility] Comment on above: Order Comment: Speci men Type: BLOOD SPECIMENOrdering Facility: [facility] Address: [address] [place] [address] Performed By: #### 1 9123-9, 6, LIPNF, 64694-2, 3015-3, 2776-, 3024-04 ####[facility] LABCLIA [id number] [place] [address] [place] Urea nitrogen [Mass/Vol] 38 mg/dL High 9-24 [facility] Comment on above: Order Comment: Speci men Type: BLOOD SPECIMENOrdering Facility: [facility] Address: [address] [place] [address] Performed By: #### 1 9123-9, 2156-6, LIPNF, 96814-0, 6-3, 2776-1, 7 ####[facility] LABCLIA [id number] [place] [id number] [place] CBC panel Auto (Bld)on 11-29 Erythrocyte distribution width (RBC) [Ratio] 17.2 % High 11.5-15.0 [facility] Comment on above: Order Comment: Speci men Type: BLOOD SPECIMENOrdering Facility: [facility] Address: [address] Performed By: #### 5 8410-2 ####[facility] LABIA [id number] [address] [place] Hematocrit (Bld) [Volume fraction] 33.5 % Low 39.0-51.0 [facility] Comment on above: Order Comment: Speci men Type: BLOOD SPECIMENOrdering Facility: [facility] Address: [address] Performed By: #### 5 8410-2 ####[facility] LABIA [id number] [address] [place] Hemoglobin (Bld) [Mass/Vol] 11.1 g/dL Low 13.0-17.0 [facility] Comment on above: Order Comment: Speci men Type: BLOOD SPECIMENOrdering Facility: [facility] Address: [address] Performed By: #### 5 8410-2 ####[facility] LABIA [id number] [address] [place] MCH (RBC) [Entitic mass] 27.8 pg Normal 26.0-34.0 [facility] Comment on above: Order Comment: Speci men Type: BLOOD SPECIMENOrdering Facility: [facility] Address: [address] Performed By: #### 5 8410-2 ####[facility] LABIA [id number] [address] [place] MCHC (RBC) [Mass/Vol] 33.1 g/dL Normal 30.5-36.0 [facility] Comment on above: Order Comment: Speci men Type: BLOOD SPECIMENOrdering Facility: [facility] Address: [address] Performed By: #### 5 8410-2 ####[facility] LABIA [id number] [address] [place] MCV (RBC) [Entitic vol] 83.8 fL Normal 80.0-100.0 [facility] Comment on above: Order Comment: Speci men Type: BLOOD SPECIMENOrdering Facility: [facility] Address: [address] [place], [place] [address] Performed By: #### 5 8410-2 ####[facility] LABIA [id number] [place] [address] [place] Nucleated RBC (Bld) [#/Vol] 10*3/uL Normal <0.01 [facility] Comment on above: Order Comment: Speci men Type: BLOOD SPECIMENOrdering Facility: [facility] Address: [address] [place], [place] [address] Performed By: #### 5 8410-2 ####[facility] LABIA [id number] [place] [address] [place] Platelet mean volume (Bld) [Entitic vol] 12.8 fL High 9.0-12.7 [facility] Comment on above: Order Comment: Speci men Type: BLOOD SPECIMENOrdering Facility: [facility] Address: [address] [place], [place] [address] Performed By: #### 5 8410-2 ####[facility] LABIA [id number] [place] [address] [place] Platelets (Bld) [#/Vol] 101 10*3/uL Low 150-400 [facility] Comment on above: Order Comment: Speci men Type: BLOOD SPECIMENOrdering Facility: [facility] Address: [address] [place], [place] [address] Result Comment: Resu lts checked and verified.No clot detected. Performed By: #### 5 8410-2 ####[facility] LABCLIA [id number] [place] [address] [place] RBC (Bld) [#/Vol] 4.00 10*6/uL Low 4.20-6.00 [facility] Comment on above: Order Comment: Speci men Type: BLOOD SPECIMENOrdering Facility: [facility] Address: [address] [place] [address] Performed By: #### 5 8410-2 ####[facility] LABCLIA [id number] [place] [address] [place] WBC (Bld) [#/Vol] 11.59 10*3/uL High 3.70-11.00 [facility] Comment on above: Order Comment: Speci men Type: BLOOD SPECIMENOrdering Facility: [facility] Address: [address] [place] [address] Performed By: #### 5 8410-2 ####[facility] LABCLIA [id number] [place] [address] [place] CK SerPl-cCncon 11-29-2022 CK [Catalytic activity/Vol] 21 U/L Low 51-298 [facility] Comment on above: Order Comment: Speci men Type: BLOOD SPECIMENOrdering Facility: [facility] Address: [address] [place] [address] Performed By: #### 1 9123-9, 2157-6, LIPNF, 80835-2, 3016-3, 2777-1, 3024-7 ####[facility] LABCLIA [id number] [place] [address] [place] BRAIN WO IVCONon 11-29-19 CT BRAIN WO IVCON Normal [facility] ECG COMPLETEon 11-29-2022 ECG COMPLETE Normal [facility] Gas and Carbon monoxide pane l (BldV)on 11-29-2022 BASE DEFICIT, VENOUS -2 mmol/L Normal -2-0 [facility] Comment on above: Order Comment: Speci men Type: VENOUS BLOOD SPECIMENOrdering Facility: [facility] Address: [address] [place] [address] Performed By: #### 2 4344-4 ####[facility] LABIA [id number] [place] [address] [place] Body temperature 98.6 [degF] Normal [facility] Comment on above: Order Comment: Speci men Type: VENOUS BLOOD SPECIMENOrdering Facility: [facility] Address: [address] [place] [address] Performed By: #### 2 4344-4 ####[facility] [id number] [place] [address] [place] Calcium.ionized (Bld) [Mass/Vol] 1.22 mmol/L Normal 1.08-1.30 [facility] Comment on above: Order Comment: Speci men Type: VENOUS BLOOD SPECIMENOrdering Facility: [facility] Address: [address] [place] [address] Performed By: #### 2 4344-4 ####[facility] [id number] [place] [address] [place] Calcium.ionized adjusted to pH 7.4 (BldA) [Moles/Vol] 1.21 mmol/L Normal 1.08-1.30 [facility] Comment on above: Order Comment: Speci men Type: VENOUS BLOOD SPECIMENOrdering Facility: [facility] Address: [address] Performed By: #### 2 4344-4 ####[facility] [id number] [place] [address] [place] Carboxyhemoglobin (BldV) [Mass fraction] 0.4 % Normal 0.0-2.0 [facility] Comment on above: Order Comment: Speci men Type: VENOUS BLOOD SPECIMENOrdering Facility: [facility] Address: [address] Result Comment: Carb oxyhemoglobin Reference Range for Smokers: 2.0-8.0% Performed By: #### 2 4344-4 ####[facility] LABCLIA [id number] [place] [address] [place] CO2 (BldV) [Partial pressure] 39 mm[Hg] Low 42-55 [facility] Comment on above: Order Comment: Speci men Type: VENOUS BLOOD SPECIMENOrdering Facility: [facility] Address: [address] Performed By: #### 2 4344-4 ####[facility] LABCLIA [id number] [place] [address] [place] CO2 [Moles/Vol] 23 mmol/L Low 25-29 [facility] Comment on above: Order Comment: Speci men Type: VENOUS BLOOD SPECIMENOrdering Facility: [facility] Address: [address] Performed By: #### 2 4344-4 ####[facility] LABCLIA [id number] [place] [address] [place] Glucose [Mass/Vol] 155 mg/dL High 60-105 [facility] Comment on above: Order Comment: Speci men Type: VENOUS BLOOD SPECIMENOrdering Facility: [facility] Address: [address] Performed By: #### 2 4344-4 ####[facility] LABCLIA [id number] [place] [address] [place] HCO3 (Bld) [Moles/Vol] 22 mmol/L Low 24-28 [facility] Comment on above: Order Comment: Speci men Type: VENOUS BLOOD SPECIMENOrdering Facility: [facility] Address: [address] Performed By: #### 2 4344-4 ####[facility] LABCLIA [id number] [place] [address] [place] Hematocrit (Bld) [Volume fraction] 36.7 % Low 39.0-51.0 [facility] Comment on above: Order Comment: Speci men Type: VENOUS BLOOD SPECIMENOrdering Facility: [facility] Address: [address] [place] [address] Performed By: #### 2 4344-4 ####[facility] LABCLIA [id number] [place] [address] [place] Hemoglobin (Bld) [Mass/Vol] 11.9 g/dL Low 13.0-17.0 [facility] Comment on above: Order Comment: Speci men Type: VENOUS BLOOD SPECIMENOrdering Facility: [facility] Address: [address] [place] [address] Performed By: #### 2 4344-4 ####[facility] LABCLIA [id number] [place] [address] [place] Lactate [Moles/Vol] 1.9 mmol/L Normal 0.5-2.2 [facility] Comment on above: Order Comment: Speci men Type: VENOUS BLOOD SPECIMENOrdering Facility: [facility] Address: [address] [place] [address] Performed By: #### 2 4344-4 ####[facility] LABCLIA [id number] [place] [address] [place] LITERS 2 Liters/min Normal [facility] Comment on above: Order Comment: Speci men Type: VENOUS BLOOD SPECIMENOrdering Facility: [facility] Address: [address] [place], [place] [address] Performed By: #### 2 4344-4 ####[facility] LABCLIA [id number] [place] [address] [place] Methemoglobin (Bld) [Mass fraction] 1.6 % High 0.0-1.5 [facility] Comment on above: Order Comment: Speci men Type: VENOUS BLOOD SPECIMENOrdering Facility: [facility] Address: [address] [place] [address] Performed By: #### 2 4344-4 ####[facility] LABCLIA [id number] [place] [address] [place] O2 THERAPY NC = Nasal Cannula Normal [facility] Comment on above: Order Comment: Speci men Type: VENOUS BLOOD SPECIMENOrdering Facility: [facility] Address: [address] [place] [address] Performed By: #### 2 4344-4 ####[facility] LABCLIA [id number] [place] [address] [place] Oxygen (BldV) [Partial pressure] 104 mm[Hg] High 35-45 [facility] Comment on above: Order Comment: Speci men Type: VENOUS BLOOD SPECIMENOrdering Facility: [facility] Address: [address] [place] [address] Performed By: #### 2 4344-4 ####[facility] LABCLIA [id number] [place] [address] [place] Oxygen saturation in Venous blood 97 % High 60-85 [facility] Comment on above: Order Comment: Speci men Type: VENOUS BLOOD SPECIMENOrdering Facility: [facility] Address: [address] [place] [id number] Performed By: #### 2 4344-4 ####[facility] LABCLIA [id number] [place] [id number] [place] Oxyhemoglobin (BldV) [Mass fraction] 95 % High 60-85 [facility] Comment on above: Order Comment: Speci men Type: VENOUS BLOOD SPECIMENOrdering Facility: [facility] Address: [address] [place] [id number] Performed By: #### 2 4344-4 ####[facility] LABCLIA [id number] [place] [id number] [place] pH (BldV) 7.37 [pH] Normal 7.32-7.42 [facility] Comment on above: Order Comment: Speci men Type: VENOUS BLOOD SPECIMENOrdering Facility: [facility] Address: [address] [place] [address] Performed By: #### 2 4344-4 ####[facility] LABCLIA [id number] [place] [address] [place] Potassium [Moles/Vol] 4.1 mmol/L Normal 3.5-5.0 [facility] Comment on above: Order Comment: Speci men Type: VENOUS BLOOD SPECIMENOrdering Facility: [facility] Address: [address] [place] [address] Performed By: #### 2 4344-4 ####[facility] LABCLIA [id number] [place] [address] [place] Sodium [Moles/Vol] 135 mmol/L Low 136-144 [facility] Comment on above: Order Comment: Speci men Type: VENOUS BLOOD SPECIMENOrdering Facility: [facility] Address: [address] [place] [address] Performed By: #### 2 4344-4 ####[facility] LABCLIA [id number] [place] [address] [place] LIPID PANEL, NONFASTINGon Cholesterol [Mass/Vol] 79 mg/dL Normal <200 [facility] Comment on above: Order Comment: Speci men Type: BLOOD SPECIMENOrdering Facility: [facility] Address: [address] [place] [address] Result Comment: <200 mg/dL, Desirable 200-239 mg/dL, Borderline high>239 mg/dL, High Performed By: #### 1 9123-9, 2157-6, LIPNF, 13520-4, 3016-3, 2777-1, 3024-7 ####[facility] LABCLIA [id number] [address] HDL CHOLESTEROL, NF 15 mg/dL Low >39 [facility] Comment on above: Order Comment: Princessi men Type: BLOOD SPECIMENOrdering Facility: [facility] Address: [address] [place] [address] Result Comment: 40-5 9 mg/dL, Acceptable>59 mg/dL, High: Negative risk factor for coronary heart disease<40 mg/dL, Low: Positive risk factor for coronary heart disease Performed By: #### 1 9123-9, 2157-6, LIPNF, 22269-4, 3016-3, 2777-1, 3024-7 ####[facility] LABCLIA [id number] [address] LDL CHOLESTEROL, NF 41 mg/dL Normal <100 [facility] Comment on above: Order Comment: Chaz joseline Type: BLOOD SPECIMENOrdering Facility: [facility] Address: [address] [place] [address] Result Comment: <100 mg/dL, Optimal 100-129 mg/dL, Near optimal/above optimal 130-159 mg/dL, Borderline high 160-189 mg/dL, High>189 mg/dL, Very highSecondary prevention optimal LDL Cholesterol levels are recommended to be < 70 mg/dL Performed By: #### 1 9123-9, 7-6, LIPNF, 98075-1, 3016-3, 2777-1, 3024-7 ####[facility] LABIA [id number] [address] [facility] LDL/HDL RATIO, NF 2.73 mg/dL High <2.54 [facility] Comment on above: Order Comment: Chaz trevizo Type: BLOOD SPECIMENOrdering Facility: [facility] Address: [address] [place] [address] Result Comment: Refe rence:1. National Cholesterol Education Program ATP III Guideline At-A-Glance Quick Desk Reference: National Heart, Lung, and Blood [place]. National Institutes of Health. 2001: NIH Publication No. 01-3305.2. An International Atherosclerosis Society position paper: global recommendations for the management of dyslipidemia: executive summary, Atherosclerosis. 2014: 232(2):410-413. Performed By: #### 1 9123-9, 2157-6, LIPNF, 87541-4, 3016-3, 2777-1, 3024-7 ####[facility] LABCLIA [id number] [address] [address] [place] NON HDL CHOL, NF 64 mg/dL Normal <130 [facility] Comment on above: Order Comment: Speci men Type: BLOOD SPECIMENOrdering Facility: [facility] Address: [address] [place] [address] Result Comment: <130 mg/dL, Optimal 130-159 mg/dL, Near optimal/above optimal 160-189 mg/dL, Borderline high 190-219 mg/dL, High>219 mg/dL, Very highSecondary prevention optimal non HDL Cholesterol levels are recommended to be <100 mg/dL Performed By: #### 1 9123-9, 2156-6, LIPNF, 94531-6, 3016-3, 2777-1, 3024-7 ####[facility] LABCLIA [id number] [address] [address] [place] T CHOL/HDL RATIO NF 5.27 mg/dL High <5.10 [facility] Comment on above: Order Comment: Speci men Type: BLOOD SPECIMENOrdering Facility: [facility] Address: [address] [address] Performed By: #### 1 9123-9, 2156-6, LIPNF, 96197-9, 3016-3, 2777-1, 3024-7 ####[facility] LABCLIA [id number] [address] [address] [place] TRIGLYCERIDES, NF 117 mg/dL Normal <150 [facility] Comment on above: Order Comment: Speci men Type: BLOOD SPECIMENOrdering Facility: [facility] Address: [address] [place], [place] [address] Result Comment: <150 mg/dL, Normal 150-199 mg/dL, Borderline high 200-499 mg/dL, High>499 mg/dL, Very high Performed By: #### 1 9123-9, 6, LIPNF, 32048-5, 3016-3, 2777-1, 3024-7 ####[facility] LABCLIA [id number] [place] [address] [place] VLDL CHOLESTEROL, NF 23 mg/dL Normal <30 [facility] Comment on above: Order Comment: Speci men Type: BLOOD SPECIMENOrdering Facility: [facility] Address: [address] [place] [address] Performed By: #### 1 9123-9, 2157-03, LIPNF, 20653-9, 6-3, 2776-1, 3023-7 ####[facility] LABCLIA [id number] [place] [address] [place] Magnesium SerPl-mCncon 11-29 Magnesium [Mass/Vol] 2.3 mg/dL Normal 1.7-2.3 [facility] Comment on above: Order Comment: Speci men Type: BLOOD SPECIMENOrdering Facility: [facility] Address: [address] [place], [place] [address] Performed By: #### 1 9123-9, 2157-03, LIPNF, 32504-5, 3015-3, 2776-1, 302-7 ####[facility] LABCLIA [id number] [place] [id number] [place] Phosphate SerPl-mCncon 11-29 Phosphate [Mass/Vol] 2.6 mg/dL Low 2.7-4.8 [facility] Comment on above: Order Comment: Speci men Type: BLOOD SPECIMENOrdering Facility: [facility] Address: [address] [place], [place] [address] Performed By: #### 1 9123-9, 2157-6, LIPNF, 81863-9, 3016-3, 2777-1, 3024-7 ####[facility] LABCLIA [id number] [place] [address] [place] T4 Free SerPl-mCncon 023 Free T4 [Mass/Vol] 0.6 ng/dL Low 0.9-1.7 [facility] Comment on above: Order Comment: Speci men Type: BLOOD SPECIMENOrdering Facility: [facility] Address: [address] [address] Performed By: #### 1 23-9, 6, LIPNF, 87980-5, 3016-3, 2777-1, 3024-7 ####[facility] LABCLIA [id number] [address] [place] TSH SerPl-aCncon 11-29-2022 TSH Qn 0.221 m[IU]/L Low 0.270-4.20 0 [facility] Comment on above: Order Comment: Speci men Type: BLOOD SPECIMENOrdering Facility: [facility] Address: [address] [place] [address] Performed By: #### 1 23-9, 6, LIPNF, 21713-5, 3016-3, 2777-1, 3024-7 ####[facility] LABIA [id number] [place] [address] [place] Basic metabolic 2000 panelon 11-28-2022 Anion gap [Moles/Vol] 10 mmol/L Normal 9-18 [facility] Comment on above: Order Comment: Speci men Type: BLOOD SPECIMENOrdering Facility: [facility] Address: [address] [place] [address] Performed By: #### 2 4321-2, 2777-1, 26308-3 ####[facility] LABCLIA [id number] [address] [address] [place] Calcium [Mass/Vol] 8.6 mg/dL Normal 8.5-10.2 [facility] Comment on above: Order Comment: Speci men Type: BLOOD SPECIMENOrdering Facility: [facility] Address: [address] [place], [place] [address] Performed By: #### 2 4321-2, 2776-, ####[facility] LABCLIA [id number] [place] [address] [place] Chloride [Moles/Vol] 109 mmol/L High 97-105 [facility] Comment on above: Order Comment: Speci men Type: BLOOD SPECIMENOrdering Facility: [facility] Address: [address] [place] [address] Performed By: #### 2 4321-2, 2776-10, ####[facility] LABCLIA [id number] [place] [address] [place] CO2 [Moles/Vol] 21 mmol/L Low 22-30 [facility] Comment on above: Order Comment: Speci men Type: BLOOD SPECIMENOrdering Facility: [facility] Address: [address] [place], [place] [address] Performed By: #### 2 4321-2, 2776-10, ####[facility] LABCLIA [id number] [place] [address] [place] Creatinine [Mass/Vol] 1.31 mg/dL High 0.73-1.22 [facility] Comment on above: Order Comment: Speci men Type: BLOOD SPECIMENOrdering Facility: [facility] Address: [address] [place], [place] [address] Performed By: #### 2 4321-2, 2776-, ####[facility] LABCLIA [id number] [place] [id number] [place] ESTIMATED GLOMERULAR FILTRATION RATE 61 mL/min/1.73m??? Normal >=60 [facility] Comment on above: Order Comment: Chaz trevizo Type: BLOOD SPECIMENOrdering Facility: [facility] Address: [address] [place], [place] [address] Result Comment: Karina mated Glomerular Filtration Rate (eGFR) is calculated using the 2020 CKD-EPI creatinine equation. This equation utilizes serum creatinine, sex, and age as parameters. The creatinine assay has traceable calibration to isotope dilution-mass spectrometry. Refer to KDIGO guidelines for clinical interpretation. In patients with unstable renal function, e.g. those with acute kidney injury, the eGFR may not accurately reflect actual GFR. Performed By: #### 2 4321-2, 2777-, ####[facility] [id number] [place] [address] [place] Glucose [Mass/Vol] 113 mg/dL High 74-99 [facility] Comment on above: Order Comment: Chaz trevizo Type: BLOOD SPECIMENOrdering Facility: [facility] Address: [address] [place] [address] Result Comment: The [place] Diabetes Association (ADA) provides guidance for cutoff values for fasting glucose and random glucose. The ADA defines fasting as no caloric intake for at least 8 hours. Fasting plasma glucose results between 100 to 125 mg/dL indicate increased risk for diabetes (prediabetes).Fasting plasma glucose results greater than or equal to 126 mg/dL meet the criteria for diagnosis of diabetes. In the absence of unequivocal hyperglycemia, results should be confirmed by repeat testing. In a patient with classic symptoms of hyperglycemia or hyperglycemic crisis, random plasma glucose results greater than or equal to 200 mg/dL meet the criteria for diagnosis of diabetes.Reference: Standards of Medical Care in Diabetes 2016, [place] Diabetes Association. Diabetes Care. 2016.39(Suppl 1). Performed By: #### 2 4321-2, 2777-, ####[facility] LABIA [id number] [place] [id number] [place] Potassium [Moles/Vol] 4.9 mmol/L Normal 3.7-5.1 [facility] Comment on above: Order Comment: Speci men Type: BLOOD SPECIMENOrdering Facility: [facility] Address: [address] Performed By: #### 2 4321-2, 2776-10, ####[facility] LABCLIA [id number] [place] [address] [place] Sodium [Moles/Vol] 140 mmol/L Normal 136-144 [facility] Comment on above: Order Comment: Speci men Type: BLOOD SPECIMENOrdering Facility: [facility] Address: [address] [place] [address] Performed By: #### 2 4321-2, 2776-10, ####[facility] LABCLIA [id number] [place] [address] [place] Urea nitrogen [Mass/Vol] 38 mg/dL High 9-24 [facility] Comment on above: Order Comment: Speci men Type: BLOOD SPECIMENOrdering Facility: [facility] Address: [address] [place] [address] Performed By: #### 2 4321-2, 2776-10, ####[facility] LABCLIA [id number] [place] [address] [place] CBC panel Auto (Bld)on 11-28 Erythrocyte distribution width (RBC) [Ratio] 17.4 % High 11.5-15.0 [facility] Comment on above: Order Comment: Speci men Type: BLOOD SPECIMENOrdering Facility: [facility] Address: [address] [place] [address] Performed By: #### 5 8410-2 ####[facility] LABCLIA [id number] [place] [address] [place] Hematocrit (Bld) [Volume fraction] 33.3 % Low 39.0-51.0 [facility] Comment on above: Order Comment: Speci men Type: BLOOD SPECIMENOrdering Facility: [facility] Address: [address] Performed By: #### 5 8410-2 ####[facility] [id number] [address] [place] Hemoglobin (Bld) [Mass/Vol] 10.8 g/dL Low 13.0-17.0 [facility] Comment on above: Order Comment: Speci men Type: BLOOD SPECIMENOrdering Facility: [facility] Address: [address] [place] [address] Performed By: #### 5 8410-2 ####[facility] [id number] [address] [place] MCH (RBC) [Entitic mass] 28.1 pg Normal 26.0-34.0 [facility] Comment on above: Order Comment: Speci men Type: BLOOD SPECIMENOrdering Facility: [facility] Address: [address] [place], [place] [address] Performed By: #### 5 8410-2 ####[facility] [id number] [address] [place] MCHC (RBC) [Mass/Vol] 32.4 g/dL Normal 30.5-36.0 [facility] Comment on above: Order Comment: Speci men Type: BLOOD SPECIMENOrdering Facility: [facility] Address: [address] [place], [place] [address] Performed By: #### 5 8410-2 ####[facility] [id number] [place] [address] [place] MCV (RBC) [Entitic vol] 86.5 fL Normal 80.0-100.0 [facility] Comment on above: Order Comment: Speci men Type: BLOOD SPECIMENOrdering Facility: [facility] Address: [address] [place], [place] [address] Performed By: #### 5 8410-2 ####[facility] LABIA [id number] [place] [address] [place] Nucleated RBC (Bld) [#/Vol] 10*3/uL Normal <0.01 [facility] Comment on above: Order Comment: Speci men Type: BLOOD SPECIMENOrdering Facility: [facility] Address: [address] [place] [address] Performed By: #### 5 8410-2 ####[facility] [id number] [place] [address] [place] Platelet mean volume (Bld) [Entitic vol] 13.2 fL High 9.0-12.7 [facility] Comment on above: Order Comment: Speci men Type: BLOOD SPECIMENOrdering Facility: [facility] Address: [address] [place] [address] Performed By: #### 5 8410-2 ####[facility] [id number] [place] [address] [place] Platelets (Bld) [#/Vol] 76 10*3/uL Low 150-400 [facility] Comment on above: Order Comment: Speci men Type: BLOOD SPECIMENOrdering Facility: [facility] Address: [address] [place] [address] Result Comment: Resu lts checked and verified.No clot detected. Performed By: #### 5 8410-2 ####[facility] [id number] [place] [address] [place] RBC (Bld) [#/Vol] 3.85 10*6/uL Low 4.20-6.00 [facility] Comment on above: Order Comment: Speci men Type: BLOOD SPECIMENOrdering Facility: [facility] Address: [address] [place] [address] Performed By: #### 5 8410-2 ####[facility] LABIA [id number] [place] [address] [place] WBC (Bld) [#/Vol] 10.98 10*3/uL Normal 3.70-11.00 [facility] Comment on above: Order Comment: Speci men Type: BLOOD SPECIMENOrdering Facility: [facility] Address: [address] [place] [address] Performed By: #### 5 8410-2 ####[facility] LABCLIA [id number] [place] [id number] [place] CONSULTon 11-28-2022 CONSULT Normal [facility] Magnesium SerPl-mCncon 11-28 Magnesium [Mass/Vol] 2.1 mg/dL Normal 1.7-2.3 [facility] Comment on above: Order Comment: Speci men Type: BLOOD SPECIMENOrdering Facility: [facility] Address: [address] [place] [address] Performed By: #### 2 4321-2, 2777-1, ####[facility] LABCLIA [id number] [place] [address] [place] Phosphate SerPl-mCncon 11-28 Phosphate [Mass/Vol] 3.4 mg/dL Normal 2.7-4.8 [facility] Comment on above: Order Comment: Speci men Type: BLOOD SPECIMENOrdering Facility: [facility] Address: [address] [place], [place] [address] Performed By: #### 2 4321-2, 2777-, ####[facility] LABIA [id number] [place] [id number] [place] THERAPY NTon 11-28-2022 THERAPY NT Normal [facility] Basic metabolic 2000 panelon 11-27-2022 Anion gap [Moles/Vol] 13 mmol/L Normal 9-18 [facility] Comment on above: Order Comment: Speci men Type: BLOOD SPECIMENOrdering Facility: [facility] Address: [address] [place] [address] Performed By: #### 2 4321-2 ####[facility] LABCLIA [id number] [place] [address] [place] Calcium [Mass/Vol] 8.3 mg/dL Low 8.5-10.2 [facility] Comment on above: Order Comment: Speci men Type: BLOOD SPECIMENOrdering Facility: [facility] Address: [address] Performed By: #### 2 4321-2 ####[facility] LABCLIA [id number] [place] [address] [place] Chloride [Moles/Vol] 109 mmol/L High 97-105 [facility] Comment on above: Order Comment: Speci men Type: BLOOD SPECIMENOrdering Facility: [facility] Address: [address] [place], [place] [address] Performed By: #### 2 4321-2 ####[facility] LABCLIA [id number] [place] [address] [place] CO2 [Moles/Vol] 18 mmol/L Low 22-30 [facility] Comment on above: Order Comment: Speci men Type: BLOOD SPECIMENOrdering Facility: [facility] Address: [address] [place], [place] [address] Performed By: #### 2 4321-2 ####[facility] LABCLIA [id number] [place] [address] [place] Creatinine [Mass/Vol] 1.52 mg/dL High 0.73-1.22 [facility] Comment on above: Order Comment: Speci men Type: BLOOD SPECIMENOrdering Facility: [facility] Address: [address] [place], [place] [address] Performed By: #### 2 4321-2 ####[facility] LABCLIA [id number] [place] [address] [place] ESTIMATED GLOMERULAR FILTRATION RATE 51 mL/min/1.73m??? Low >=60 [facility] Comment on above: Order Comment: Chaz trevizo Type: BLOOD SPECIMENOrdering Facility: [facility] Address: [address] [place] [address] Result Comment: Karina mated Glomerular Filtration Rate (eGFR) is calculated using the 2020 CKD-EPI creatinine equation. This equation utilizes serum creatinine, sex, and age as parameters. The creatinine assay has traceable calibration to isotope dilution-mass spectrometry. Refer to KDIGO guidelines for clinical interpretation. In patients with unstable renal function, e.g. those with acute kidney injury, the eGFR may not accurately reflect actual GFR. Performed By: #### 2 4321-2 ####[facility] LABIA [id number] [place] [address] [place] Glucose [Mass/Vol] 154 mg/dL High 74-99 [facility] Comment on above: Order Comment: Chaz trevizo Type: BLOOD SPECIMENOrdering Facility: [facility] Address: [address] [place] [address] Result Comment: The [place] Diabetes Association (ADA) provides guidance for cutoff values for fasting glucose and random glucose. The ADA defines fasting as no caloric intake for at least 8 hours. Fasting plasma glucose results between 100 to 125 mg/dL indicate increased risk for diabetes (prediabetes).Fasting plasma glucose results greater than or equal to 126 mg/dL meet the criteria for diagnosis of diabetes. In the absence of unequivocal hyperglycemia, results should be confirmed by repeat testing. In a patient with classic symptoms of hyperglycemia or hyperglycemic crisis, random plasma glucose results greater than or equal to 200 mg/dL meet the criteria for diagnosis of diabetes.Reference: Standards of Medical Care in Diabetes 2016, [place] Diabetes Association. Diabetes Care. 2016.39(Suppl 1). Performed By: #### 2 4321-2 ####[facility] LABIA [id number] [place] [address] [place] Potassium [Moles/Vol] 4.6 mmol/L Normal 3.7-5.1 [facility] Comment on above: Order Comment: Speci men Type: BLOOD SPECIMENOrdering Facility: [facility] Address: [address] Performed By: #### 2 4321-2 ####[facility] LABCLIA [id number] [place] [address] [place] Sodium [Moles/Vol] 140 mmol/L Normal 136-144 [facility] Comment on above: Order Comment: Speci men Type: BLOOD SPECIMENOrdering Facility: [facility] Address: [address] Performed By: #### 2 4321-2 ####[facility] LABCLIA [id number] [place] [address] [place] Urea nitrogen [Mass/Vol] 43 mg/dL High 9-24 [facility] Comment on above: Order Comment: Speci men Type: BLOOD SPECIMENOrdering Facility: [facility] Address: [address] Performed By: #### 2 4321-2 ####[facility] LABIA [id number] [place] [address] [place] Anion gap [Moles/Vol] 14 mmol/L Normal 9-18 [facility] Comment on above: Order Comment: Speci men Type: BLOOD SPECIMENOrdering Facility: [facility] Address: [address] Performed By: #### 1 9123-9, 74536-5, 2777-1 ####[facility] LABCLIA [id number] [place] [address] [place] Calcium [Mass/Vol] 8.7 mg/dL Normal 8.5-10.2 [facility] Comment on above: Order Comment: Speci men Type: BLOOD SPECIMENOrdering Facility: [facility] Address: [address] Performed By: #### 1 9123-9, 60552-0, 2777-1 ####[facility] LABIA [id number] [place] [address] [place] Chloride [Moles/Vol] 109 mmol/L High 97-105 [facility] Comment on above: Order Comment: Speci men Type: BLOOD SPECIMENOrdering Facility: [facility] Address: [address] [place] [address] Performed By: #### 1 9123-9, 35697-6, 2777-1 ####[facility] LABIA [id number] [place] [address] [place] CO2 [Moles/Vol] 17 mmol/L Low 22-30 [facility] Comment on above: Order Comment: Speci men Type: BLOOD SPECIMENOrdering Facility: [facility] Address: [address] [place] [address] Performed By: #### 1 9123-9, 97707-8, 2777-1 ####[facility] LABIA [id number] [place] [address] [place] Creatinine [Mass/Vol] 1.75 mg/dL High 0.73-1.22 [facility] Comment on above: Order Comment: Speci men Type: BLOOD SPECIMENOrdering Facility: [facility] Address: [address] [place] [address] Performed By: #### 1 9123-9, 92767-8, 2777- ####[facility] [id number] [place] [address] [place] ESTIMATED GLOMERULAR FILTRATION RATE 43 mL/min/1.73m??? Low >=60 [facility] Comment on above: Order Comment: Speci men Type: BLOOD SPECIMENOrdering Facility: [facility] Address: [address] [place] [address] Result Comment: Karina mated Glomerular Filtration Rate (eGFR) is calculated using the 2020 CKD-EPI creatinine equation. This equation utilizes serum creatinine, sex, and age as parameters. The creatinine assay has traceable calibration to isotope dilution-mass spectrometry. Refer to KDIGO guidelines for clinical interpretation. In patients with unstable renal function, e.g. those with acute kidney injury, the eGFR may not accurately reflect actual GFR. Performed By: #### 1 9123-9, , 2776-10 ####[facility] LABCLIA [id number] [address] [address] [place] Glucose [Mass/Vol] 112 mg/dL High 74-99 [facility] Comment on above: Order Comment: Chaz trevizo Type: BLOOD SPECIMENOrdering Facility: [facility] Address: [address] [place] [id number] Result Comment: The [place] Diabetes Association (ADA) provides guidance for cutoff values for fasting glucose and random glucose. The ADA defines fasting as no caloric intake for at least 8 hours. Fasting plasma glucose results between 100 to 125 mg/dL indicate increased risk for diabetes (prediabetes).Fasting plasma glucose results greater than or equal to 126 mg/dL meet the criteria for diagnosis of diabetes. In the absence of unequivocal hyperglycemia, results should be confirmed by repeat testing. In a patient with classic symptoms of hyperglycemia or hyperglycemic crisis, random plasma glucose results greater than or equal to 200 mg/dL meet the criteria for diagnosis of diabetes.Reference: Standards of Medical Care in Diabetes 2016, [place] Diabetes Association. Diabetes Care. 2016.39(Suppl 1). Performed By: #### 1 239, , 2776-10 ####[facility] LABCLIA [id number] [place] [id number] [place] Potassium [Moles/Vol] 5.4 mmol/L High 3.7-5.1 [facility] Comment on above: Order Comment: Chaz trevizo Type: BLOOD SPECIMENOrdering Facility: [facility] Address: [address] [place] [address] Performed By: #### 1 91239, , 2776-10 ####[facility] LABCLIA [id number] [address] [address] [place] Sodium [Moles/Vol] 140 mmol/L Normal 136-144 [facility] Comment on above: Order Comment: Speci men Type: BLOOD SPECIMENOrdering Facility: [facility] Address: [address] [place] [address] Performed By: #### 1 9123-9, 68198-1, 2777-1 ####[facility] LABCLIA [id number] [place] [address] [place] Urea nitrogen [Mass/Vol] 40 mg/dL High 9-24 [facility] Comment on above: Order Comment: Speci men Type: BLOOD SPECIMENOrdering Facility: [facility] Address: [address] [place] [address] Performed By: #### 1 9123-9, 60995-4, 2777-1 ####[facility] LABCLIA [id number] [place] [address] [place] CASE MANAGEMon 11-27-2022 CASE MANAGEM Normal [facility] CBC panel Auto (Bld)on 11-27 Erythrocyte distribution width (RBC) [Ratio] 17.2 % High 11.5-15.0 [facility] Comment on above: Order Comment: Speci men Type: BLOOD SPECIMENOrdering Facility: [facility] Address: [address] [place] [address] Performed By: #### 5 8410-2 ####[facility] LABCLIA [id number] [place] [address] [place] Hematocrit (Bld) [Volume fraction] 36.2 % Low 39.0-51.0 [facility] Comment on above: Order Comment: Speci men Type: BLOOD SPECIMENOrdering Facility: [facility] Address: [address] [place] [address] Performed By: #### 5 8410-2 ####[facility] LABCLIA [id number] [place] [address] [place] Hemoglobin (Bld) [Mass/Vol] 12.0 g/dL Low 13.0-17.0 [facility] Comment on above: Order Comment: Speci men Type: BLOOD SPECIMENOrdering Facility: [facility] Address: [address] [place] [address] Performed By: #### 5 8410-2 ####[facility] LABIA [id number] [address] MCH (RBC) [Entitic mass] 28.4 pg Normal 26.0-34.0 [facility] Comment on above: Order Comment: Speci men Type: BLOOD SPECIMENOrdering Facility: [facility] Address: [address] [place] [address] Performed By: #### 5 8410-2 ####[facility] LABIA [id number] [address] MCHC (RBC) [Mass/Vol] 33.1 g/dL Normal 30.5-36.0 [facility] Comment on above: Order Comment: Speci men Type: BLOOD SPECIMENOrdering Facility: [facility] Address: [address] [place], [place] [address] Performed By: #### 5 8410-2 ####[facility] LABIA [id number] [address] [place] MCV (RBC) [Entitic vol] 85.8 fL Normal 80.0-100.0 [facility] Comment on above: Order Comment: Speci men Type: BLOOD SPECIMENOrdering Facility: [facility] Address: [address] [place], [place] [address] Performed By: #### 5 8410-2 ####[facility] LABIA [id number] [address] [place] Nucleated RBC (Bld) [#/Vol] 10*3/uL Normal <0.01 [facility] Comment on above: Order Comment: Speci men Type: BLOOD SPECIMENOrdering Facility: [facility] Address: [address] [place] [address] Performed By: #### 5 8410-2 ####[facility] LABIA [id number] [place] [address] [place] Platelet mean volume (Bld) [Entitic vol] 13.7 fL High 9.0-12.7 [facility] Comment on above: Order Comment: Speci men Type: BLOOD SPECIMENOrdering Facility: [facility] Address: [address] [place] [address] Performed By: #### 5 8410-2 ####[facility] LABIA [id number] [place] [address] [place] Platelets (Bld) [#/Vol] 92 10*3/uL Low 150-400 [facility] Comment on above: Order Comment: Speci men Type: BLOOD SPECIMENOrdering Facility: [facility] Address: [address] [place] [address] Result Comment: Resu lts checked and verified.No clot detected. Performed By: #### 5 8410-2 ####[facility] LABIA [id number] [place] [address] [place] RBC (Bld) [#/Vol] 4.22 10*6/uL Normal 4.20-6.00 [facility] Comment on above: Order Comment: Speci men Type: BLOOD SPECIMENOrdering Facility: [facility] Address: [address] [place], [place] [address] Performed By: #### 5 8410-2 ####[facility] LABIA [id number] [place] [address] [place] WBC (Bld) [#/Vol] 14.13 10*3/uL High 3.70-11.00 [facility] Comment on above: Order Comment: Speci men Type: BLOOD SPECIMENOrdering Facility: [facility] Address: [address] [place], [place] [address] Performed By: #### 5 8410-2 ####[facility] LABIA [id number] [place] [address] [place] CONSULT PROGon 11-27-2022 CONSULT PROG Normal [facility] Gas and Carbon monoxide pane l (BldV)on 11-27-2022 BASE DEFICIT, VENOUS -5 mmol/L Low -2-0 [facility] Comment on above: Order Comment: Speci men Type: VENOUS BLOOD SPECIMENOrdering Facility: [facility] Address: [address] [place] [place] [address] Performed By: #### 2 4344-4 ####[facility] LABIA [id number] [address] [place] Body temperature 98.6 [degF] Normal [facility] Comment on above: Order Comment: Speci men Type: VENOUS BLOOD SPECIMENOrdering Facility: [facility] Address: [address] [place] [address] Performed By: #### 2 4344-4 ####[facility] LABIA [id number] [address] STATES [facility] Calcium.ionized (Bld) [Mass/Vol] 1.20 mmol/L Normal 1.08-1.30 [facility] Comment on above: Order Comment: Speci men Type: VENOUS BLOOD SPECIMENOrdering Facility: [facility] Address: [address] Performed By: #### 2 4344-4 ####[facility] LABIA [id number] [address] [place] Calcium.ionized adjusted to pH 7.4 (BldA) [Moles/Vol] 1.17 mmol/L Normal 1.08-1.30 [facility] Comment on above: Order Comment: Speci men Type: VENOUS BLOOD SPECIMENOrdering Facility: [facility] Address: [address] [place] [address] Performed By: #### 2 4344-4 ####[facility] LABCLIA [id number] [address] [place] Carboxyhemoglobin (BldV) [Mass fraction] 0.1 % Normal 0.0-2.0 [facility] Comment on above: Order Comment: Speci men Type: VENOUS BLOOD SPECIMENOrdering Facility: [facility] Address: [address] [place] [address] Result Comment: Carb oxyhemoglobin Reference Range for Smokers: 2.0-8.0% Performed By: #### 2 4344-4 ####[facility] LABCLIA [id number] [address] [place] CO2 (BldV) [Partial pressure] 35 mm[Hg] Low 42-55 [facility] Comment on above: Order Comment: Speci men Type: VENOUS BLOOD SPECIMENOrdering Facility: [facility] Address: [address] Performed By: #### 2 4344-4 ####[facility] LABCLIA [id number] [place] [address] [place] CO2 [Moles/Vol] 20 mmol/L Low 25-29 [facility] Comment on above: Order Comment: Speci men Type: VENOUS BLOOD SPECIMENOrdering Facility: [facility] Address: [address] Performed By: #### 2 4344-4 ####[facility] LABCLIA [id number] [place] [address] [place] Glucose [Mass/Vol] 159 mg/dL High 60-105 [facility] Comment on above: Order Comment: Speci men Type: VENOUS BLOOD SPECIMENOrdering Facility: [facility] Address: [address] Performed By: #### 2 4344-4 ####[facility] LABCLIA [id number] [place] [address] [place] HCO3 (Bld) [Moles/Vol] 19 mmol/L Low 24-28 [facility] Comment on above: Order Comment: Speci men Type: VENOUS BLOOD SPECIMENOrdering Facility: [facility] Address: [address] [place] [address] Performed By: #### 2 4344-4 ####[facility] LABCLIA [id number] [place] [address] [place] Hematocrit (Bld) [Volume fraction] 36.7 % Low 39.0-51.0 [facility] Comment on above: Order Comment: Speci men Type: VENOUS BLOOD SPECIMENOrdering Facility: [facility] Address: [address] [place] [address] Performed By: #### 2 4344-4 ####[facility] LABCLIA [id number] [place] [address] [place] Hemoglobin (Bld) [Mass/Vol] 11.9 g/dL Low 13.0-17.0 [facility] Comment on above: Order Comment: Speci men Type: VENOUS BLOOD SPECIMENOrdering Facility: [facility] Address: [address] [place], [place] [address] Performed By: #### 2 4344-4 ####[facility] LABCLIA [id number] [place] [address] [place] Lactate [Moles/Vol] 2.0 mmol/L Normal 0.5-2.2 [facility] Comment on above: Order Comment: Speci men Type: VENOUS BLOOD SPECIMENOrdering Facility: [facility] Address: [address] [place], [place] [address] Performed By: #### 2 4344-4 ####[facility] LABCLIA [id number] [place] [address] [place] LITERS 5 Liters/min Normal [facility] Comment on above: Order Comment: Speci men Type: VENOUS BLOOD SPECIMENOrdering Facility: [facility] Address: [address] [place] [address] Performed By: #### 2 4344-4 ####[facility] LABCLIA [id number] [place] [address] [place] Methemoglobin (Bld) [Mass fraction] 1.7 % High 0.0-1.5 [facility] Comment on above: Order Comment: Speci men Type: VENOUS BLOOD SPECIMENOrdering Facility: [facility] Address: [address] Performed By: #### 2 4344-4 ####[facility] LABCLIA [id number] [place] [address] [place] O2 THERAPY NC = Nasal Cannula Normal [facility] Comment on above: Order Comment: Speci men Type: VENOUS BLOOD SPECIMENOrdering Facility: [facility] Address: [address] Performed By: #### 2 4344-4 ####[facility] LABCLIA [id number] [place] [address] [place] Oxygen (BldV) [Partial pressure] 71 mm[Hg] High 35-45 [facility] Comment on above: Order Comment: Speci men Type: VENOUS BLOOD SPECIMENOrdering Facility: [facility] Address: [address] [place] [address] Performed By: #### 2 4344-4 ####[facility] LABCLIA [id number] [place] [address] [place] Oxygen saturation in Venous blood 94 % High 60-85 [facility] Comment on above: Order Comment: Speci men Type: VENOUS BLOOD SPECIMENOrdering Facility: [facility] Address: [address] [place] [address] Performed By: #### 2 4344-4 ####[facility] LABCLIA [id number] [place] [address] [place] Oxyhemoglobin (BldV) [Mass fraction] 92 % High 60-85 [facility] Comment on above: Order Comment: Speci men Type: VENOUS BLOOD SPECIMENOrdering Facility: [facility] Address: [address] [place] [address] Performed By: #### 2 4344-4 ####[facility] LABIA [id number] [place] [address] [place] pH (BldV) 7.36 [pH] Normal 7.32-7.42 [facility] Comment on above: Order Comment: Speci men Type: VENOUS BLOOD SPECIMENOrdering Facility: [facility] Address: [address] [place] [address] Performed By: #### 2 4344-4 ####[facility] LABIA [id number] [place] [address] [place] Potassium [Moles/Vol] 4.3 mmol/L Normal 3.5-5.0 [facility] Comment on above: Order Comment: Speci men Type: VENOUS BLOOD SPECIMENOrdering Facility: [facility] Address: [address] [place] [address] Performed By: #### 2 4344-4 ####[facility] LABIA [id number] [place] [address] [place] Sodium [Moles/Vol] 137 mmol/L Normal 136-144 [facility] Comment on above: Order Comment: Speci men Type: VENOUS BLOOD SPECIMENOrdering Facility: [facility] Address: [address] [place], [place] [address] Performed By: #### 2 4344-4 ####[facility] LABCLIA [id number] [place] [address] [place] BASE DEFICIT, VENOUS -5 mmol/L Low -2-0 [facility] Comment on above: Order Comment: Speci men Type: VENOUS BLOOD SPECIMENOrdering Facility: [facility] Address: [address] [address] Performed By: #### 2 4344-4 ####[facility] LABIA [id number] [place] [address] [place] Body temperature 98.6 [degF] Normal [facility] Comment on above: Order Comment: Speci men Type: VENOUS BLOOD SPECIMENOrdering Facility: [facility] Address: [address] [address] Performed By: #### 2 4344-4 ####[facility] [id number] [place] [address] [place] Calcium.ionized (Bld) [Mass/Vol] 1.21 mmol/L Normal 1.08-1.30 [facility] Comment on above: Order Comment: Speci men Type: VENOUS BLOOD SPECIMENOrdering Facility: [facility] Address: [address] [place] [address] Performed By: #### 2 4344-4 ####[facility] [id number] [place] [address] [place] Calcium.ionized adjusted to pH 7.4 (BldA) [Moles/Vol] 1.18 mmol/L Normal 1.08-1.30 [facility] Comment on above: Order Comment: Speci men Type: VENOUS BLOOD SPECIMENOrdering Facility: [facility] Address: [address] Performed By: #### 2 4344-4 ####[facility] [id number] [place] [address] [place] Carboxyhemoglobin (BldV) [Mass fraction] 0.8 % Normal 0.0-2.0 [facility] Comment on above: Order Comment: Speci men Type: VENOUS BLOOD SPECIMENOrdering Facility: [facility] Address: [address] [place], [place] [address] Result Comment: Carb oxyhemoglobin Reference Range for Smokers: 2.0-8.0% Performed By: #### 2 4344-4 ####[facility] LABCLIA [id number] [place] [address] [place] CO2 (BldV) [Partial pressure] 36 mm[Hg] Low 42-55 [facility] Comment on above: Order Comment: Speci men Type: VENOUS BLOOD SPECIMENOrdering Facility: [facility] Address: [address] Performed By: #### 2 4344-4 ####[facility] LABCLIA [id number] [place] [address] [place] CO2 [Moles/Vol] 21 mmol/L Low 25-29 [facility] Comment on above: Order Comment: Speci men Type: VENOUS BLOOD SPECIMENOrdering Facility: [facility] Address: [address] [address] Performed By: #### 2 4344-4 ####[facility] LABCLIA [id number] [place] [address] [place] FIO2 35 % Normal [facility] Comment on above: Order Comment: Speci men Type: VENOUS BLOOD SPECIMENOrdering Facility: [facility] Address: [address] [place] [address] Performed By: #### 2 4344-4 ####[facility] LABCLIA [id number] [place] [address] [place] Glucose [Mass/Vol] 129 mg/dL High 60-105 [facility] Comment on above: Order Comment: Speci men Type: VENOUS BLOOD SPECIMENOrdering Facility: [facility] Address: [address] Performed By: #### 2 4344-4 ####[facility] LABCLIA [id number] [place] [address] [place] HCO3 (Bld) [Moles/Vol] 20 mmol/L Low 24-28 [facility] Comment on above: Order Comment: Speci men Type: VENOUS BLOOD SPECIMENOrdering Facility: [facility] Address: [address] Performed By: #### 2 4344-4 ####[facility] LABCLIA [id number] [place] [address] [place] Hematocrit (Bld) [Volume fraction] 37.1 % Low 39.0-51.0 [facility] Comment on above: Order Comment: Speci men Type: VENOUS BLOOD SPECIMENOrdering Facility: [facility] Address: [address] [address] Performed By: #### 2 4344-4 ####[facility] LABCLIA [id number] [place] [address] [place] Hemoglobin (Bld) [Mass/Vol] 12.0 g/dL Low 13.0-17.0 [facility] Comment on above: Order Comment: Speci men Type: VENOUS BLOOD SPECIMENOrdering Facility: [facility] Address: [address] [place], [place] [address] Performed By: #### 2 4344-4 ####[facility] LABCLIA [id number] [place] [address] [place] Lactate [Moles/Vol] 1.8 mmol/L Normal 0.5-2.2 [facility] Comment on above: Order Comment: Speci men Type: VENOUS BLOOD SPECIMENOrdering Facility: [facility] Address: [address] Performed By: #### 2 4344-4 ####[facility] LABCLIA [id number] [place] [address] [place] Methemoglobin (Bld) [Mass fraction] 1.5 % Normal 0.0-1.5 [facility] Comment on above: Order Comment: Speci men Type: VENOUS BLOOD SPECIMENOrdering Facility: [facility] Address: [address] [place] [address] Performed By: #### 2 4344-4 ####[facility] LABCLIA [id number] [place] [address] [place] O2 THERAPY Hi-Flow Nasal Cannula-Heated Normal [facility] Comment on above: Order Comment: Speci men Type: VENOUS BLOOD SPECIMENOrdering Facility: [facility] Address: [address] [place] [address] Performed By: #### 2 4344-4 ####[facility] LABCLIA [id number] [place] [address] [place] Oxygen (BldV) [Partial pressure] 62 mm[Hg] High 35-45 [facility] Comment on above: Order Comment: Speci men Type: VENOUS BLOOD SPECIMENOrdering Facility: [facility] Address: [address] [place] [address] Performed By: #### 2 4344-4 ####[facility] LABCLIA [id number] [place] [address] [place] Oxygen saturation in Venous blood 90 % High 60-85 [facility] Comment on above: Order Comment: Speci men Type: VENOUS BLOOD SPECIMENOrdering Facility: [facility] Address: [address] [place] [address] Performed By: #### 2 4344-4 ####[facility] LABCLIA [id number] [place] [address] [place] Oxyhemoglobin (BldV) [Mass fraction] 88 % High 60-85 [facility] Comment on above: Order Comment: Speci men Type: VENOUS BLOOD SPECIMENOrdering Facility: [facility] Address: [address] [place] [address] Performed By: #### 2 4344-4 ####[facility] LABCLIA [id number] [address] [address] [id number] [address] [place] pH (BldV) 7.35 [pH] Normal 7.32-7.42 [facility] Comment on above: Order Comment: Speci men Type: VENOUS BLOOD SPECIMENOrdering Facility: [facility] Address: [address] [place] [address] Performed By: #### 2 4344-4 ####[facility] LABCLIA [id number] [place] [address] [place] Potassium [Moles/Vol] 4.7 mmol/L Normal 3.5-5.0 [facility] Comment on above: Order Comment: Speci men Type: VENOUS BLOOD SPECIMENOrdering Facility: [facility] Address: [address] [place] [address] Performed By: #### 2 4344-4 ####[facility] LABIA [id number] [place] [address] [place] Sodium [Moles/Vol] 139 mmol/L Normal 136-144 [facility] Comment on above: Order Comment: Speci men Type: VENOUS BLOOD SPECIMENOrdering Facility: [facility] Address: [address] [place] [address] Performed By: #### 2 4344-4 ####[facility] LABIA [id number] [place] [address] [place] Magnesium SerPl-mCncon 11-27 Magnesium [Mass/Vol] 2.2 mg/dL Normal 1.7-2.3 [facility] Comment on above: Order Comment: Speci men Type: BLOOD SPECIMENOrdering Facility: [facility] Address: [address] [place] [address] Performed By: #### 1 9123-9, 31677-4, 2777-1 ####[facility] LABCLIA [id number] [place] [address] [place] Phosphate SerPl-mCncon 11-27 Phosphate [Mass/Vol] 3.9 mg/dL Normal 2.7-4.8 [facility] Comment on above: Order Comment: Speci men Type: BLOOD SPECIMENOrdering Facility: [facility] Address: [address] [facility] [place] [address] Performed By: #### 1 9123-9, 44458-2, 2777-1 ####[facility] LABCLIA [id number] [place] [address] [place] THERAPY NTon 11-27-2022 THERAPY NT Normal [facility] XR CHEST 1V FRONTAL PORTon 0 11-27-2022 XR CHEST 1V FRONTAL PORT Normal [facility] Bacteria Bld Culton 11-26-19 Bacteria identified Cx Nom (Bld) Abnormal [facility] Comment on above: Performed By: #### 6 00-7 ####[facility] LABCLIA [id number] [place] [address] [place] Bacteria identified Cx Nom (Bld) ORGANISM ID: 1 Klebsiella (enterobacter) aerogenes Refer to specimen collected on 11/26/2022 1147 ([id number]) GRAM STAIN: Gram negative bacilli Abnormal [facility] Comment on above: Performed By: #### 6 00-7 ####[facility] LABCLIA [id number] [place] [id number] [place] CASE MANAGEMon 11-26-2022 CASE MANAGEM Normal [facility] CBC panel Auto (Bld)on 11-26 Erythrocyte distribution width (RBC) [Ratio] 16.9 % High 11.5-15.0 [facility] Comment on above: Order Comment: Speci men Type: BLOOD SPECIMENOrdering Facility: [facility] Address: [place] [address] Performed By: #### 5 8410-2 ####[facility] LABCLIA [id number] [place] [address] [place] Hematocrit (Bld) [Volume fraction] 34.9 % Low 39.0-51.0 [facility] Comment on above: Order Comment: Speci men Type: BLOOD SPECIMENOrdering Facility: [facility] Address: [address] [place] [address] Performed By: #### 5 8410-2 ####[facility] LABCLIA [id number] [place] [address] [place] Hemoglobin (Bld) [Mass/Vol] 11.1 g/dL Low 13.0-17.0 [facility] Comment on above: Order Comment: Speci men Type: BLOOD SPECIMENOrdering Facility: [facility] Address: [address] [place] [address] Performed By: #### 5 8410-2 ####[facility] LABIA [id number] [address] [place] MCH (RBC) [Entitic mass] 28.2 pg Normal 26.0-34.0 [facility] Comment on above: Order Comment: Speci men Type: BLOOD SPECIMENOrdering Facility: [facility] Address: [address] [place] [address] Performed By: #### 5 8410-2 ####[facility] LABIA [id number] [address] [place] MCHC (RBC) [Mass/Vol] 31.8 g/dL Normal 30.5-36.0 [facility] Comment on above: Order Comment: Speci men Type: BLOOD SPECIMENOrdering Facility: [facility] Address: [address] [place], [place] [address] Performed By: #### 5 8410-2 ####[facility] LABIA [id number] [place] [address] [place] MCV (RBC) [Entitic vol] 88.8 fL Normal 80.0-100.0 [facility] Comment on above: Order Comment: Speci men Type: BLOOD SPECIMENOrdering Facility: [facility] Address: [address] Performed By: #### 5 8410-2 ####[facility] LABIA [id number] [place] [address] [place] Nucleated RBC (Bld) [#/Vol] 10*3/uL Normal <0.01 [facility] Comment on above: Order Comment: Speci men Type: BLOOD SPECIMENOrdering Facility: [facility] Address: [address] [place] [address] Performed By: #### 5 8410-2 ####[facility] [id number] [place] [address] [place] Platelet mean volume (Bld) [Entitic vol] 12.2 fL Normal 9.0-12.7 [facility] Comment on above: Order Comment: Speci men Type: BLOOD SPECIMENOrdering Facility: [facility] Address: [address] [place] [address] Performed By: #### 5 8410-2 ####[facility] [id number] [place] [address] [place] Platelets (Bld) [#/Vol] 88 10*3/uL Low 150-400 [facility] Comment on above: Order Comment: Speci men Type: BLOOD SPECIMENOrdering Facility: [facility] Address: [address] [place] [address] Result Comment: Resu lts checked and verified.No clot detected. Performed By: #### 5 8410-2 ####[facility] [id number] [place] [address] [place] RBC (Bld) [#/Vol] 3.93 10*6/uL Low 4.20-6.00 [facility] Comment on above: Order Comment: Speci men Type: BLOOD SPECIMENOrdering Facility: [facility] Address: [address] [place], [place] [address] Performed By: #### 5 8410-2 ####[facility] LABCLIA [id number] [place] [id number] [place] WBC (Bld) [#/Vol] 4.71 10*3/uL Normal 3.70-11.00 [facility] Comment on above: Order Comment: Speci men Type: BLOOD SPECIMENOrdering Facility: [facility] Address: [address] [place], [place] [address] Performed By: #### 5 8410-2 ####[facility] LABIA [id number] [place] [address] [place] CONSULT PROGon 11-26-2022 CONSULT PROG Normal [facility] CRP SerPl-mCncon 11-26-2022 CRP [Mass/Vol] 17.0 mg/dL High <0.9 [facility] Comment on above: Order Comment: Speci men Type: BLOOD SPECIMENOrdering Facility: [facility] Address: [address] [place], [place] [address] Performed By: #### 2 4323-8, 79536-2, 1988-02 ####[facility] LABIA [id number] [place] [address] [place] Comprehensive metabolic 2000 panelon 11-26-2022 Albumin [Mass/Vol] 2.8 g/dL Low 3.9-4.9 [facility] Comment on above: Order Comment: Speci men Type: BLOOD SPECIMENOrdering Facility: [facility] Address: [address] [place], [place] [address] Performed By: #### 2 4323-8, 29954-9, 1988-02 ####[facility] LABIA [id number] [place] [address] [place] ALP [Catalytic activity/Vol] 95 U/L Normal 38-113 [facility] Comment on above: Order Comment: Speci men Type: BLOOD SPECIMENOrdering Facility: [facility] Address: [address] [place], [place] [address] Performed By: #### 2 4323-8, 40126-0, 1988-02 ####[facility] LABCLIA [id number] [place] [address] [place] ALT [Catalytic activity/Vol] U/L Low 10-54 [facility] Comment on above: Order Comment: Speci men Type: BLOOD SPECIMENOrdering Facility: [facility] Address: [address] Result Comment: Resu lt rechecked. Performed By: #### 2 4323-8, 80353-1, 1988-02 ####[facility] LABCLIA [id number] [place] [address] [place] Anion gap [Moles/Vol] 10 mmol/L Normal 9-18 [facility] Comment on above: Order Comment: Speci men Type: BLOOD SPECIMENOrdering Facility: [facility] Address: [address] [place], [place] [address] Performed By: #### 2 4323-8, 64323-0, 1988-02 ####[facility] LABIA [id number] [place] [address] [place] AST [Catalytic activity/Vol] 10 U/L Low 14-40 [facility] Comment on above: Order Comment: Speci men Type: BLOOD SPECIMENOrdering Facility: [facility] Address: [address] [place] [address] Performed By: #### 2 4323-8, 95258-7, 1988-02 ####[facility] LABIA [id number] [place] [address] [place] Bilirubin [Mass/Vol] 0.4 mg/dL Normal 0.2-1.3 [facility] Comment on above: Order Comment: Speci men Type: BLOOD SPECIMENOrdering Facility: [facility] Address: [address] Performed By: #### 2 8, , 1988-02 ####[facility] LABCLIA [id number] [place] [address] [place] Calcium [Mass/Vol] 8.1 mg/dL Low 8.5-10.2 [facility] Comment on above: Order Comment: Speci men Type: BLOOD SPECIMENOrdering Facility: [facility] Address: [address] [place] [address] Performed By: #### 2 8, , 1988-02 ####[facility] LABCLIA [id number] [place] [address] [place] Chloride [Moles/Vol] 108 mmol/L High 97-105 [facility] Comment on above: Order Comment: Speci men Type: BLOOD SPECIMENOrdering Facility: [facility] Address: [address] [place], [place] [address] Performed By: #### 2 8, , 1988-02 ####[facility] LABCLIA [id number] [place] [address] [place] CO2 [Moles/Vol] 20 mmol/L Low 22-30 [facility] Comment on above: Order Comment: Speci men Type: BLOOD SPECIMENOrdering Facility: [facility] Address: [address] [place] [address] Performed By: #### 2 8, , 1988-02 ####[facility] LABCLIA [id number] [place] [id number] [place] Creatinine [Mass/Vol] 1.92 mg/dL High 0.73-1.22 [facility] Comment on above: Order Comment: Speci men Type: BLOOD SPECIMENOrdering Facility: [facility] Address: [address] [place], [place] [address] Performed By: #### 2 432-8, 94423-7, 1988-02 ####[facility] LABCLIA [id number] [place] [address] [place] ESTIMATED GLOMERULAR FILTRATION RATE 38 mL/min/1.73m??? Low >=60 [facility] Comment on above: Order Comment: Chaz trveizo Type: BLOOD SPECIMENOrdering Facility: [facility] Address: [address] Result Comment: Karina mated Glomerular Filtration Rate (eGFR) is calculated using the 2020 CKD-EPI creatinine equation. This equation utilizes serum creatinine, sex, and age as parameters. The creatinine assay has traceable calibration to isotope dilution-mass spectrometry. Refer to KDIGO guidelines for clinical interpretation. In patients with unstable renal function, e.g. those with acute kidney injury, the eGFR may not accurately reflect actual GFR. Performed By: #### 2 4323-8, 72197-9, 1988-02 ####[facility] [id number] [place] [address] [place] Glucose [Mass/Vol] 88 mg/dL Normal 74-99 [facility] Comment on above: Order Comment: Chaz trevizo Type: BLOOD SPECIMENOrdering Facility: [facility] Address: [address] [place] [address] Result Comment: The [place] Diabetes [employer] (ADA) provides guidance for cutoff values for fasting glucose and random glucose. The ADA defines fasting as no caloric intake for at least 8 hours. Fasting plasma glucose results between 100 to 125 mg/dL indicate increased risk for diabetes (prediabetes).Fasting plasma glucose results greater than or equal to 126 mg/dL meet the criteria for diagnosis of diabetes. In the absence of unequivocal hyperglycemia, results should be confirmed by repeat testing. In a patient with classic symptoms of hyperglycemia or hyperglycemic crisis, random plasma glucose results greater than or equal to 200 mg/dL meet the criteria for diagnosis of diabetes.Reference: Standards of Medical Care in Diabetes 2016, [place] [employer]. Diabetes Care. 2016.39(Suppl 1). Performed By: #### 2 4323-8, 28639-6, 1988-02 ####[facility] [id number] [place] [id number] [place] Potassium [Moles/Vol] 4.4 mmol/L Normal 3.7-5.1 [facility] Comment on above: Order Comment: Speci men Type: BLOOD SPECIMENOrdering Facility: [facility] Address: [address] [place] [address] Performed By: #### 2 4323-8, 91953-0, 1988-02 ####[facility] LABCLIA [id number] [place] [address] [place] Protein [Mass/Vol] 5.2 g/dL Low 6.3-8.0 [facility] Comment on above: Order Comment: Speci men Type: BLOOD SPECIMENOrdering Facility: [facility] Address: [address] [place], [place] [address] Performed By: #### 2 4323-8, 22125-6, 1988-02 ####[facility] LABCLIA [id number] [place] [address] [place] Sodium [Moles/Vol] 138 mmol/L Normal 136-144 [facility] Comment on above: Order Comment: Speci men Type: BLOOD SPECIMENOrdering Facility: [facility] Address: [address] [place] [address] Performed By: #### 2 4323-8, 39970-3, 1988-02 ####[facility] LABCLIA [id number] [place] [id number] [place] Urea nitrogen [Mass/Vol] 44 mg/dL High 9-24 [facility] Comment on above: Order Comment: Speci men Type: BLOOD SPECIMENOrdering Facility: [facility] Address: [address] [place] [address] Performed By: #### 2 4323-8, 61560-0, 1988-02 ####[facility] LABCLIA [id number] [place] [id number] [place] ECG COMPLETEon 11-26-2022 ECG COMPLETE Normal [facility] HISTORY PHYSICALon HISTORY PHYSICAL Normal [facility] MEDICAL EMERon 11-26-2022 MEDICAL KALEB Normal [facility] NURSING PROGon 11-26-2022 NURSING PROG Normal [facility] NUTRITIONon 11-26-2022 NUTRITION Normal [facility] PT panel Coag (PPP)on 2022 INR Coag (PPP) [Relative time] 1.2 {INR} Normal 0.9-1.3 [facility] Comment on above: Order Comment: Speci men Type: BLOOD SPECIMENOrdering Facility: [facility] Address: [address] [place] [id number] Result Comment: Bouchra min K Antagonist (VKA) Therapeutic Range: INR 2 to 3 (Target INR of 2.5)Note: For patients treated with VKA drugs, such as warfarin, the [place] [employer] 2012 Guideline recommends a therapeutic INR range of 2 to 3 (target INR of 2.5). This recommendation includes high-risk patients with antiphospholipid syndrome with previous arterial or venous thromboembolism, current-generation mechanical or bioprosthetic aortic heart valve replacement.Note: Patients with mechanical aortic valve replacement and additional risk factors for thromboembolic events (atrial fibrillation, previous thromboembolism, LV dysfunction, hypercoagulable conditions) or an older generation mechanical AVR (i.e., ball in-Cage) or any mechanical MVR should have a INR therapeutic range of 2.5 to 3.5 (target INR of 3).Mukesh GH, et al. Chest 2012, 141:7S-47SNishmercy RA, et al. [facility] 2017, 70: 252-289 Performed By: #### 3 4528-0 ####[facility] LABCLIA [id number] [facility] [id number] [address] [place] PT Coag (PPP) [Time] 12.2 s Normal 9.7-13.0 [facility] Comment on above: Order Comment: Chaz trevizo Type: BLOOD SPECIMENOrdering Facility: [facility] Address: [address] [place] [address] Performed By: #### 3 4528-0 ####[facility] LABCLIA [id number] [place] [address] [place] Procalcitonin SerPl-mCncon 0 11-26-2022 Procalcitonin [Mass/Vol] 11.48 ng/mL High <0.09 [facility] Comment on above: Order Comment: Speci men Type: BLOOD SPECIMENOrdering Facility: [facility] Address: [address] [place] [address] Result Comment: For a guided interpretation of test results, please visit the Change in Procalcitonin Calculator, [email or web address]. Performed By: #### 2 4323-8, 83479-3, 1988-02 ####[facility] [id number] [place] [address] [place] SEPSIS LACTATEon 11-26-2022 Lactate [Moles/Vol] 2.4 mmol/L High <=2.0 [facility] Comment on above: Order Comment: Speci men Type: BLOOD SPECIMENOrdering Facility: [facility] Address: [address] [place] [address] Performed By: #### S LACT ####[facility] LABIA [id number] [place] [address] [place] STAPH AUREUS PCRon 3 S. aureus and MRSA panel KELLIE+probe (Nose) Normal Negative [facility] Comment on above: Order Comment: Speci men Type: SWAB OF INTERNAL NOSEOrdering Facility: [facility] Address: [address] [place] [address] Result Comment: Nega tive for Staphylococcus aureus by PCR.Negative for MRSA by PCR Performed By: #### S APCR ####[facility] LABIA [id number] [place] [address] [place] THERAPY NTon 11-26-2022 THERAPY NT Normal [facility] THERAPY NT Normal [facility] US KIDNEY/BLADDERon 11-26-19 23 US KIDNEY/BLADDER Normal [facility] Urinalysis complete pnl Uron 11-26-2022 Urinalysis complete panel (U) Normal [facility] Comment on above: Order Comment: Speci men Type: URINE SPECIMENOrdering Facility: [facility] Address: [address] [place] [address] Performed By: #### 2 4356-8 ####[facility] LABCLIA [id number] [place] [address] [place] XR CHEST 1V FRONTAL PORTon 0 11-26-2022 XR CHEST 1V FRONTAL PORT Normal [facility] CASE MGT INIT ASSESon 2022 CASE MGT INIT ASSES Normal [facility] CBC panel Auto (Bld)on 11-25 Erythrocyte distribution width (RBC) [Ratio] 17.2 % High 11.5-15.0 [facility] Comment on above: Order Comment: Speci men Type: BLOOD SPECIMENOrdering Facility: [facility] Address: [address] [place], [place] [address] Performed By: #### 5 8410-2 ####[facility] LABCLIA [id number] [place] [address] [place] Hematocrit (Bld) [Volume fraction] 36.9 % Low 39.0-51.0 [facility] Comment on above: Order Comment: Speci men Type: BLOOD SPECIMENOrdering Facility: [facility] Address: [address] [place], [place] [address] Performed By: #### 5 8410-2 ####[facility] LABCLIA [id number] [place] [address] [place] Hemoglobin (Bld) [Mass/Vol] 11.6 g/dL Low 13.0-17.0 [facility] Comment on above: Order Comment: Speci men Type: BLOOD SPECIMENOrdering Facility: [facility] Address: [address] [place], [place] [address] Performed By: #### 5 8410-2 ####[facility] LABCLIA [id number] [place] [address] [place] MCH (RBC) [Entitic mass] 27.8 pg Normal 26.0-34.0 [facility] Comment on above: Order Comment: Speci men Type: BLOOD SPECIMENOrdering Facility: [facility] Address: [address] [place] [address] Performed By: #### 5 8410-2 ####[facility] [id number] [address] [place] MCHC (RBC) [Mass/Vol] 31.4 g/dL Normal 30.5-36.0 [facility] Comment on above: Order Comment: Speci men Type: BLOOD SPECIMENOrdering Facility: [facility] Address: [address] [place] [address] Performed By: #### 5 8410-2 ####[facility] [id number] [address] [place] MCV (RBC) [Entitic vol] 88.3 fL Normal 80.0-100.0 [facility] Comment on above: Order Comment: Speci men Type: BLOOD SPECIMENOrdering Facility: [facility] Address: [address] [place] [address] Performed By: #### 5 8410-2 ####[facility] [id number] [place] [address] [place] Nucleated RBC (Bld) [#/Vol] 10*3/uL Normal <0.01 [facility] Comment on above: Order Comment: Speci men Type: BLOOD SPECIMENOrdering Facility: [facility] Address: [address] [place], [place] [address] Performed By: #### 5 8410-2 ####[facility] [id number] [address] [place] Platelet mean volume (Bld) [Entitic vol] 12.0 fL Normal 9.0-12.7 [facility] Comment on above: Order Comment: Speci men Type: BLOOD SPECIMENOrdering Facility: [facility] Address: [address] [place], [place] [address] Performed By: #### 5 8410-2 ####[facility] LABCLIA [id number] [place] [address] [place] Platelets (Bld) [#/Vol] 96 10*3/uL Low 150-400 [facility] Comment on above: Order Comment: Speci men Type: BLOOD SPECIMENOrdering Facility: [facility] Address: [address] [place], [place] [address] Result Comment: No c lot detected. Performed By: #### 5 8410-2 ####[facility] LABCLIA [id number] [place] [address] [place] RBC (Bld) [#/Vol] 4.18 10*6/uL Low 4.20-6.00 [facility] Comment on above: Order Comment: Speci men Type: BLOOD SPECIMENOrdering Facility: [facility] Address: [address] [place], [place] [address] Performed By: #### 5 8410-2 ####[facility] LABCLIA [id number] [place] [address] [place] WBC (Bld) [#/Vol] 5.31 10*3/uL Normal 3.70-11.00 [facility] Comment on above: Order Comment: Speci men Type: BLOOD SPECIMENOrdering Facility: [facility] Address: [address] [place], [place] [address] Performed By: #### 5 8410-2 ####[facility] LABCLIA [id number] [place] [address] [place] CONSULT PROGon 11-25-2022 CONSULT PROG Normal [facility] CONSULT PROG Normal [facility] Comprehensive metabolic 2000 panelon 11-25-2022 Albumin [Mass/Vol] 3.1 g/dL Low 3.9-4.9 [facility] Comment on above: Order Comment: Speci men Type: BLOOD SPECIMENOrdering Facility: [facility] Address: [address] [place] [address] Performed By: #### 2 4323-8 ####[facility] LABCLIA [id number] [place] [address] [place] ALP [Catalytic activity/Vol] 98 U/L Normal 38-113 [facility] Comment on above: Order Comment: Speci men Type: BLOOD SPECIMENOrdering Facility: [facility] Address: [address] [place] [address] Performed By: #### 2 4323-8 ####[facility] LABCLIA [id number] [place] [address] [place] ALT [Catalytic activity/Vol] U/L Low 10-54 [facility] Comment on above: Order Comment: Speci men Type: BLOOD SPECIMENOrdering Facility: [facility] Address: [address] [place] [address] Result Comment: Resu lt rechecked. Performed By: #### 2 4323-8 ####[facility] LABCLIA [id number] [place] [address] [place] Anion gap [Moles/Vol] 9 mmol/L Normal 9-18 [facility] Comment on above: Order Comment: Speci men Type: BLOOD SPECIMENOrdering Facility: [facility] Address: [address] [place] [address] Performed By: #### 2 4323-8 ####[facility] LABCLIA [id number] [place] [address] [place] AST [Catalytic activity/Vol] 8 U/L Low 14-40 [facility] Comment on above: Order Comment: Speci men Type: BLOOD SPECIMENOrdering Facility: [facility] Address: [address] [place], [place] Performed By: #### 2 4323-8 ####[facility] LABCLIA [id number] [place] [address] [place] Bilirubin [Mass/Vol] 0.4 mg/dL Normal 0.2-1.3 [facility] Comment on above: Order Comment: Speci men Type: BLOOD SPECIMENOrdering Facility: [facility] Address: [address] Performed By: #### 2 4323-8 ####[facility] LABCLIA [id number] [place] [address] [place] Calcium [Mass/Vol] 8.4 mg/dL Low 8.5-10.2 [facility] Comment on above: Order Comment: Speci men Type: BLOOD SPECIMENOrdering Facility: [facility] Address: [address] [place], [place] [address] Performed By: #### 2 4323-8 ####[facility] LABCLIA [id number] [place] [address] [place] Chloride [Moles/Vol] 109 mmol/L High 97-105 [facility] Comment on above: Order Comment: Speci men Type: BLOOD SPECIMENOrdering Facility: [facility] Address: [address] [place] [address] Performed By: #### 2 4323-8 ####[facility] LABCLIA [id number] [place] [address] [place] CO2 [Moles/Vol] 22 mmol/L Normal 22-30 [facility] Comment on above: Order Comment: Speci men Type: BLOOD SPECIMENOrdering Facility: [facility] Address: [address] [place] [address] Performed By: #### 2 4323-8 ####[facility] LABCLIA [id number] [place] [address] [place] Creatinine [Mass/Vol] 1.18 mg/dL Normal 0.73-1.22 [facility] Comment on above: Order Comment: Chaz trevizo Type: BLOOD SPECIMENOrdering Facility: [facility] Address: [address] [place] [address] Performed By: #### 2 4323-8 ####[facility] LABCLIA [id number] [address] ESTIMATED GLOMERULAR FILTRATION RATE 69 mL/min/1.73m??? Normal >=60 [facility] Comment on above: Order Comment: Chaz trevizo Type: BLOOD SPECIMENOrdering Facility: [facility] Address: [address] [place] [address] Result Comment: Karina mated Glomerular Filtration Rate (eGFR) is calculated using the 2020 CKD-EPI creatinine equation. This equation utilizes serum creatinine, sex, and age as parameters. The creatinine assay has traceable calibration to isotope dilution-mass spectrometry. Refer to KDIGO guidelines for clinical interpretation. In patients with unstable renal function, e.g. those with acute kidney injury, the eGFR may not accurately reflect actual GFR. Performed By: #### 2 4323-8 ####[facility] LABCLIA [id number] [address] [place] Glucose [Mass/Vol] 102 mg/dL High 74-99 [facility] Comment on above: Order Comment: Chaz trevizo Type: BLOOD SPECIMENOrdering Facility: [facility] Address: [address] [place] [address] Result Comment: The [place] Diabetes [employer] (ADA) provides guidance for cutoff values for fasting glucose and random glucose. The ADA defines fasting as no caloric intake for at least 8 hours. Fasting plasma glucose results between 100 to 125 mg/dL indicate increased risk for diabetes (prediabetes).Fasting plasma glucose results greater than or equal to 126 mg/dL meet the criteria for diagnosis of diabetes. In the absence of unequivocal hyperglycemia, results should be confirmed by repeat testing. In a patient with classic symptoms of hyperglycemia or hyperglycemic crisis, random plasma glucose results greater than or equal to 200 mg/dL meet the criteria for diagnosis of diabetes.Reference: Standards of Medical Care in Diabetes 2016, [place] [employer]. Diabetes Care. 2016.39(Suppl 1). Performed By: #### 2 4323-8 ####[facility] LABCLIA [id number] [place] [address] [place] Potassium [Moles/Vol] 4.8 mmol/L Normal 3.7-5.1 [facility] Comment on above: Order Comment: Speci men Type: BLOOD SPECIMENOrdering Facility: [facility] Address: [address] [place] [address] Performed By: #### 2 4323-8 ####[facility] LABCLIA [id number] [place] [address] [place] Protein [Mass/Vol] 5.5 g/dL Low 6.3-8.0 [facility] Comment on above: Order Comment: Speci men Type: BLOOD SPECIMENOrdering Facility: [facility] Address: [address] Performed By: #### 2 4323-8 ####[facility] LABCLIA [id number] [place] [address] [place] Sodium [Moles/Vol] 140 mmol/L Normal 136-144 [facility] Comment on above: Order Comment: Speci men Type: BLOOD SPECIMENOrdering Facility: [facility] Address: [address] Performed By: #### 2 4323-8 ####[facility] LABCLIA [id number] [place] [address] [place] Urea nitrogen [Mass/Vol] 31 mg/dL High 9-24 [facility] Comment on above: Order Comment: Speci men Type: BLOOD SPECIMENOrdering Facility: [facility] Address: [address] Performed By: #### 2 4323-8 ####[facility] LABCLIA [id number] [address] [place] THERAPY NTon 11-25-2022 THERAPY NT Normal [facility] CBC panel Auto (Bld)on 11-24 Erythrocyte distribution width (RBC) [Ratio] 17.2 % High 11.5-15.0 [facility] Comment on above: Order Comment: Speci men Type: BLOOD SPECIMENOrdering Facility: [facility] Address: [address] [place] [address] Performed By: #### 5 8410-2 ####[facility] LABIA [id number] [address] [place] Hematocrit (Bld) [Volume fraction] 37.8 % Low 39.0-51.0 [facility] Comment on above: Order Comment: Speci men Type: BLOOD SPECIMENOrdering Facility: [facility] Address: [address] [place] [address] Performed By: #### 5 8410-2 ####[facility] LABIA [id number] [address] [place] Hemoglobin (Bld) [Mass/Vol] 12.1 g/dL Low 13.0-17.0 [facility] Comment on above: Order Comment: Speci men Type: BLOOD SPECIMENOrdering Facility: [facility] Address: [address] [place] [address] Performed By: #### 5 8410-2 ####[facility] LABIA [id number] [address] [place] MCH (RBC) [Entitic mass] 28.4 pg Normal 26.0-34.0 [facility] Comment on above: Order Comment: Speci men Type: BLOOD SPECIMENOrdering Facility: [facility] Address: [address] [place] [address] Performed By: #### 5 8410-2 ####[facility] LABIA [id number] [address] STATES [facility] MCHC (RBC) [Mass/Vol] 32.0 g/dL Normal 30.5-36.0 [facility] Comment on above: Order Comment: Speci men Type: BLOOD SPECIMENOrdering Facility: [facility] Address: [address] [place] [address] Performed By: #### 5 8410-2 ####[facility] LABIA [id number] [address] [place] MCV (RBC) [Entitic vol] 88.7 fL Normal 80.0-100.0 [facility] Comment on above: Order Comment: Speci men Type: BLOOD SPECIMENOrdering Facility: [facility] Address: [address] [place] [address] Performed By: #### 5 8410-2 ####[facility] LABIA [id number] [place] [address] [place] Nucleated RBC (Bld) [#/Vol] 10*3/uL Normal <0.01 [facility] Comment on above: Order Comment: Speci men Type: BLOOD SPECIMENOrdering Facility: [facility] Address: [address] [place], [place] [address] Performed By: #### 5 8410-2 ####[facility] LABIA [id number] [place] [address] [place] Platelet mean volume (Bld) [Entitic vol] 12.2 fL Normal 9.0-12.7 [facility] Comment on above: Order Comment: Speci men Type: BLOOD SPECIMENOrdering Facility: [facility] Address: [address] [place], [place] [address] Performed By: #### 5 8410-2 ####[facility] LABCLIA [id number] [place] [address] [place] Platelets (Bld) [#/Vol] 111 10*3/uL Low 150-400 [facility] Comment on above: Order Comment: Speci men Type: BLOOD SPECIMENOrdering Facility: [facility] Address: [address] Performed By: #### 5 8410-2 ####[facility] LABCLIA [id number] [place] [address] [place] RBC (Bld) [#/Vol] 4.26 10*6/uL Normal 4.20-6.00 [facility] Comment on above: Order Comment: Speci men Type: BLOOD SPECIMENOrdering Facility: [facility] Address: [address] Performed By: #### 5 8410-2 ####[facility] LABCLIA [id number] [place] [address] [place] WBC (Bld) [#/Vol] 4.79 10*3/uL Normal 3.70-11.00 [facility] Comment on above: Order Comment: Speci men Type: BLOOD SPECIMENOrdering Facility: [facility] Address: [address] [place], [place] [address] Performed By: #### 5 8410-2 ####[facility] LABCLIA [id number] [place] [address] [place] CONSULTon 11-24-2022 CONSULT Normal [facility] CONSULT Normal [facility] CONSULT PROGon 11-24-2022 CONSULT PROG Normal [facility] Comprehensive metabolic 2000 panelon 11-24-2022 Albumin [Mass/Vol] 3.3 g/dL Low 3.9-4.9 [facility] Comment on above: Order Comment: Speci men Type: BLOOD SPECIMENOrdering Facility: [facility] Address: [address] [place], [place] [address] Performed By: #### 1 9123-9, 2777-1, 47974-7 ####[facility] LABCLIA [id number] [place] [address] [place] ALP [Catalytic activity/Vol] 91 U/L Normal 38-113 [facility] Comment on above: Order Comment: Speci men Type: BLOOD SPECIMENOrdering Facility: [facility] Address: [address] [place], [place] [address] Performed By: #### 1 9123-9, 27704-18, 31824-3 ####[facility] LABCLIA [id number] [address] ALT [Catalytic activity/Vol] U/L Low 10-54 [facility] Comment on above: Order Comment: Speci men Type: BLOOD SPECIMENOrdering Facility: [facility] Address: [address] [place], [place] [address] Result Comment: Resu lt rechecked. Performed By: #### 1 9123-9, 2776-10, 28224-3 ####[facility] LABCLIA [id number] [address] OF [facility] Anion gap [Moles/Vol] 8 mmol/L Low 9-18 [facility] Comment on above: Order Comment: Speci men Type: BLOOD SPECIMENOrdering Facility: [facility] Address: [address] [place], [place] [address] Performed By: #### 1 9123-9, 2776-10, 80886-1 ####[facility] LABCLIA [id number] [address] AST [Catalytic activity/Vol] 9 U/L Low 14-40 [facility] Comment on above: Order Comment: Speci men Type: BLOOD SPECIMENOrdering Facility: [facility] Address: [address] [place], [place] [address] Performed By: #### 1 9123-9, 27704-18, 68712-3 ####[facility] LABCLIA [id number] [address] [place] Bilirubin [Mass/Vol] 0.2 mg/dL Normal 0.2-1.3 [facility] Comment on above: Order Comment: Speci men Type: BLOOD SPECIMENOrdering Facility: [facility] Address: [address] [place] [address] Performed By: #### 1 9123-9, 2776-10, ####[facility] LABCLIA [id number] [facility] [facility] [address]ENTERLID AVENUESCR[facility] [place] [address] [place] Calcium [Mass/Vol] 8.3 mg/dL Low 8.5-10.2 [facility] Comment on above: Order Comment: Speci men Type: BLOOD SPECIMENOrdering Facility: [facility] Address: [address] [place] [address] Performed By: #### 1 9123-9, 2776-10, ####[facility] LABCLIA [id number] [place] [address] [place] Chloride [Moles/Vol] 110 mmol/L High 97-105 [facility] Comment on above: Order Comment: Speci men Type: BLOOD SPECIMENOrdering Facility: [facility] Address: [address] [place] [address] Performed By: #### 1 9123-9, 2776-10, ####[facility] LABCLIA [id number] [facility] [place] [address] [place] CO2 [Moles/Vol] 24 mmol/L Normal 22-30 [facility] Comment on above: Order Comment: Speci men Type: BLOOD SPECIMENOrdering Facility: [facility] Address: [address] [place], [place] [address] Performed By: #### 1 9123-9, 2776-10, ####[facility] LABCLIA [id number] [facility] [place] [address] [place] Creatinine [Mass/Vol] 0.94 mg/dL Normal 0.73-1.22 [facility] Comment on above: Order Comment: Speci men Type: BLOOD SPECIMENOrdering Facility: [facility] Address: [address] [id number] Performed By: #### 1 9123-9, 2777-1, 04278-5 ####[facility] LABCLIA [id number] [place] [address] [place] ESTIMATED GLOMERULAR FILTRATION RATE 91 mL/min/1.73m??? Normal >=60 [facility] Comment on above: Order Comment: Chaz joseline Type: BLOOD SPECIMENOrdering Facility: [facility] Address: [address] [id number] Result Comment: Karina mated Glomerular Filtration Rate (eGFR) is calculated using the 2020 CKD-EPI creatinine equation. This equation utilizes serum creatinine, sex, and age as parameters. The creatinine assay has traceable calibration to isotope dilution-mass spectrometry. Refer to KDIGO guidelines for clinical interpretation. In patients with unstable renal function, e.g. those with acute kidney injury, the eGFR may not accurately reflect actual GFR. Performed By: #### 1 9123-9, 2777-1, 74341-8 ####[facility] LABIA [id number] [place] [address] [place] Glucose [Mass/Vol] 68 mg/dL Low 74-99 [facility] Comment on above: Order Comment: Chaz trevizo Type: BLOOD SPECIMENOrdering Facility: [facility] Address: [address] [address] Result Comment: The [place] Diabetes Association (ADA) provides guidance for cutoff values for fasting glucose and random glucose. The ADA defines fasting as no caloric intake for at least 8 hours. Fasting plasma glucose results between 100 to 125 mg/dL indicate increased risk for diabetes (prediabetes).Fasting plasma glucose results greater than or equal to 126 mg/dL meet the criteria for diagnosis of diabetes. In the absence of unequivocal hyperglycemia, results should be confirmed by repeat testing. In a patient with classic symptoms of hyperglycemia or hyperglycemic crisis, random plasma glucose results greater than or equal to 200 mg/dL meet the criteria for diagnosis of diabetes.Reference: Standards of Medical Care in Diabetes 2016, [place] Diabetes Association. Diabetes Care. 2016.39(Suppl 1). Performed By: #### 1 9123-9, 2777-1, 15712-2 ####[facility] LABCLIA [id number] [address] [address] [place] Potassium [Moles/Vol] 4.1 mmol/L Normal 3.7-5.1 [facility] Comment on above: Order Comment: Speci men Type: BLOOD SPECIMENOrdering Facility: [facility] Address: [address] Performed By: #### 1 9123-9, 2777-, 41486-7 ####[facility] LABIA [id number] [place] [address] [place] Protein [Mass/Vol] 5.7 g/dL Low 6.3-8.0 [facility] Comment on above: Order Comment: Speci men Type: BLOOD SPECIMENOrdering Facility: [facility] Address: [address] Performed By: #### 1 9123-9, 27704-18, 30630-0 ####[facility] [id number] [place] [address] [place] Sodium [Moles/Vol] 142 mmol/L Normal 136-144 [facility] Comment on above: Order Comment: Speci men Type: BLOOD SPECIMENOrdering Facility: [facility] Address: [address] Performed By: #### 1 9123-9, 27704-18, 16649-0 ####[facility] LABIA [id number] [place] [address] [place] Urea nitrogen [Mass/Vol] 22 mg/dL Normal 9-24 [facility] Comment on above: Order Comment: Speci men Type: BLOOD SPECIMENOrdering Facility: [facility] Address: [address] Performed By: #### 1 9123-9, 2777-1, 25060-6 ####[facility] LABCLIA [id number] [place] [address] [place] Magnesium SerPl-mCncon 11-24 Magnesium [Mass/Vol] 2.2 mg/dL Normal 1.7-2.3 [facility] Comment on above: Order Comment: Speci men Type: BLOOD SPECIMENOrdering Facility: [facility] Address: [address] [place] [address] Performed By: #### 1 9123-9, 2777-1, 75194-9 ####[facility] LABIA [id number] [address] [place] Phosphate SerPl-mCncon 11-24 Phosphate [Mass/Vol] 3.3 mg/dL Normal 2.7-4.8 [facility] Comment on above: Order Comment: Speci men Type: BLOOD SPECIMENOrdering Facility: [facility] Address: [address] [place] [address] Performed By: #### 1 9123-9, 2777-, 05780-0 ####[facility] LABIA [id number] [address] [place] CBC panel Auto (Bld)on 11-23 Erythrocyte distribution width (RBC) [Ratio] 16.8 % High 11.5-15.0 [facility] Comment on above: Order Comment: Speci men Type: BLOOD SPECIMENOrdering Facility: [facility] Address: [address] [place] [address] Performed By: #### 5 8410-2 ####[facility] LABIA [id number] [address] [place] Hematocrit (Bld) [Volume fraction] 35.7 % Low 39.0-51.0 [facility] Comment on above: Order Comment: Speci men Type: BLOOD SPECIMENOrdering Facility: [facility] Address: [address] Performed By: #### 5 8410-2 ####[facility] LABIA [id number] [place] [address] [place] Hemoglobin (Bld) [Mass/Vol] 11.3 g/dL Low 13.0-17.0 [facility] Comment on above: Order Comment: Speci men Type: BLOOD SPECIMENOrdering Facility: [facility] Address: [address] [place], [place] [address] Performed By: #### 5 8410-2 ####[facility] LABIA [id number] [place] [address] [place] MCH (RBC) [Entitic mass] 27.9 pg Normal 26.0-34.0 [facility] Comment on above: Order Comment: Speci men Type: BLOOD SPECIMENOrdering Facility: [facility] Address: [address] Performed By: #### 5 8410-2 ####[facility] [id number] [address] [place] MCHC (RBC) [Mass/Vol] 31.7 g/dL Normal 30.5-36.0 [facility] Comment on above: Order Comment: Speci men Type: BLOOD SPECIMENOrdering Facility: [facility] Address: [address] Performed By: #### 5 8410-2 ####[facility] LABIA [id number] [place] [address] [place] MCV (RBC) [Entitic vol] 88.1 fL Normal 80.0-100.0 [facility] Comment on above: Order Comment: Speci men Type: BLOOD SPECIMENOrdering Facility: [facility] Address: [address] [place], [place] [address] Performed By: #### 5 8410-2 ####[facility] LABCLIA [id number] [place] [address] [place] Nucleated RBC (Bld) [#/Vol] 10*3/uL Normal <0.01 [facility] Comment on above: Order Comment: Speci men Type: BLOOD SPECIMENOrdering Facility: [facility] Address: [address] [place] [address] Performed By: #### 5 8410-2 ####[facility] LABIA [id number] [place] [address] [place] Platelet mean volume (Bld) [Entitic vol] 12.7 fL Normal 9.0-12.7 [facility] Comment on above: Order Comment: Speci men Type: BLOOD SPECIMENOrdering Facility: [facility] Address: [address] [place] [address] Performed By: #### 5 8410-2 ####[facility] LABIA [id number] [place] [address] [place] Platelets (Bld) [#/Vol] 106 10*3/uL Low 150-400 [facility] Comment on above: Order Comment: Speci men Type: BLOOD SPECIMENOrdering Facility: [facility] Address: [address] [place] [address] Performed By: #### 5 8410-2 ####[facility] LABIA [id number] [place] [address] [place] RBC (Bld) [#/Vol] 4.05 10*6/uL Low 4.20-6.00 [facility] Comment on above: Order Comment: Speci men Type: BLOOD SPECIMENOrdering Facility: [facility] Address: [address] [place] [address] Performed By: #### 5 8410-2 ####[facility] LABIA [id number] [place] [address] [place] WBC (Bld) [#/Vol] 2.81 10*3/uL Low 3.70-11.00 [facility] Comment on above: Order Comment: Speci men Type: BLOOD SPECIMENOrdering Facility: [facility] Address: [address] [place] [address] Performed By: #### 5 8410-2 ####[facility] LABCLIA [id number] [place] [address] [place] Comprehensive metabolic 2000 panelon 11-23-2022 Albumin [Mass/Vol] 3.2 g/dL Low 3.9-4.9 [facility] Comment on above: Order Comment: Speci men Type: BLOOD SPECIMENOrdering Facility: [facility] Address: [address] [place] [address] Performed By: #### 1 9123-9, 2777-1, 56999-0 ####[facility] LABCLIA [id number] [place] [address] [place] ALP [Catalytic activity/Vol] 84 U/L Normal 38-113 [facility] Comment on above: Order Comment: Speci men Type: BLOOD SPECIMENOrdering Facility: [facility] Address: [address] [place] [address] Performed By: #### 1 9123-9, 2777-1, 83780-1 ####[facility] LABCLIA [id number] [place] [address] [place] ALT [Catalytic activity/Vol] U/L Low 10-54 [facility] Comment on above: Order Comment: Speci men Type: BLOOD SPECIMENOrdering Facility: [facility] Address: [address] [place], [place] [address] Performed By: #### 1 9123-9, 2777-1, 29852-3 ####[facility] LABCLIA [id number] [place] [id number] [place] Anion gap [Moles/Vol] 10 mmol/L Normal 9-18 [facility] Comment on above: Order Comment: Speci men Type: BLOOD SPECIMENOrdering Facility: [facility] Address: [address] [place], [place] [address] Performed By: #### 1 9123-9, 2776-10, ####[facility] LABCLIA [id number] [place] [address] [place] AST [Catalytic activity/Vol] 13 U/L Low 14-40 [facility] Comment on above: Order Comment: Speci men Type: BLOOD SPECIMENOrdering Facility: [facility] Address: [address] [place], [place] [address] Performed By: #### 1 9123-9, 2776-10, ####[facility] LABCLIA [id number] [place] [address] [place] Bilirubin [Mass/Vol] 0.2 mg/dL Normal 0.2-1.3 [facility] Comment on above: Order Comment: Speci men Type: BLOOD SPECIMENOrdering Facility: [facility] Address: [address] [place], [place] [address] Performed By: #### 1 9123-9, 2776-10, ####[facility] LABCLIA [id number] [place] [address] [place] Calcium [Mass/Vol] 8.3 mg/dL Low 8.5-10.2 [facility] Comment on above: Order Comment: Speci men Type: BLOOD SPECIMENOrdering Facility: [facility] Address: [address] [place], [place] [address] Performed By: #### 1 9123-9, 2776-10, ####[facility] LABCLIA [id number] [place] [address] [place] Chloride [Moles/Vol] 112 mmol/L High 97-105 [facility] Comment on above: Order Comment: Speci men Type: BLOOD SPECIMENOrdering Facility: [facility] Address: [address] [place] [address] Performed By: #### 1 9123-9, 2776-10, ####[facility] LABIA [id number] [place] [address] [place] CO2 [Moles/Vol] 21 mmol/L Low 22-30 [facility] Comment on above: Order Comment: Speci men Type: BLOOD SPECIMENOrdering Facility: [facility] Address: [address] [place] [address] Performed By: #### 1 9123-9, 2776-10, ####[facility] LABIA [id number] [place] [address] [place] Creatinine [Mass/Vol] 0.84 mg/dL Normal 0.73-1.22 [facility] Comment on above: Order Comment: Speci men Type: BLOOD SPECIMENOrdering Facility: [facility] Address: [address] [place] [address] Performed By: #### 1 9123-9, 2776-10, ####[facility] LABIA [id number] [place] [address] [place] ESTIMATED GLOMERULAR FILTRATION RATE 97 mL/min/1.73m??? Normal >=60 [facility] Comment on above: Order Comment: Speci men Type: BLOOD SPECIMENOrdering Facility: [facility] Address: [address] [place] [address] Result Comment: Karina mated Glomerular Filtration Rate (eGFR) is calculated using the 2020 CKD-EPI creatinine equation. This equation utilizes serum creatinine, sex, and age as parameters. The creatinine assay has traceable calibration to isotope dilution-mass spectrometry. Refer to KDIGO guidelines for clinical interpretation. In patients with unstable renal function, e.g. those with acute kidney injury, the eGFR may not accurately reflect actual GFR. Performed By: #### 1 9123-9, 2776-10, ####[facility] LABCLIA [id number] [place] [address] [place] Glucose [Mass/Vol] 102 mg/dL High 74-99 [facility] Comment on above: Order Comment: Speci men Type: BLOOD SPECIMENOrdering Facility: [facility] Address: [address] [place] [address] Result Comment: The [place] Diabetes Association (ADA) provides guidance for cutoff values for fasting glucose and random glucose. The ADA defines fasting as no caloric intake for at least 8 hours. Fasting plasma glucose results between 100 to 125 mg/dL indicate increased risk for diabetes (prediabetes).Fasting plasma glucose results greater than or equal to 126 mg/dL meet the criteria for diagnosis of diabetes. In the absence of unequivocal hyperglycemia, results should be confirmed by repeat testing. In a patient with classic symptoms of hyperglycemia or hyperglycemic crisis, random plasma glucose results greater than or equal to 200 mg/dL meet the criteria for diagnosis of diabetes.Reference: Standards of Medical Care in Diabetes 2016, [place] Diabetes Association. Diabetes Care. 2016.39(Suppl 1). Performed By: #### 1 9123-9, 2777-, 32275-2 ####[facility] LABIA [id number] [place] [address] [place] Potassium [Moles/Vol] 4.3 mmol/L Normal 3.7-5.1 [facility] Comment on above: Order Comment: Speci men Type: BLOOD SPECIMENOrdering Facility: [facility] Address: [address] [place], [place] [address] Performed By: #### 1 9123-9, 2777-, 04617-5 ####[facility] LABIA [id number] [place] [address] [place] Protein [Mass/Vol] 5.3 g/dL Low 6.3-8.0 [facility] Comment on above: Order Comment: Speci men Type: BLOOD SPECIMENOrdering Facility: [facility] Address: [address] [place] [address] Performed By: #### 1 9123-9, 2777-1, 20429-5 ####[facility] LABCLIA [id number] [place] [id number] [place] Sodium [Moles/Vol] 143 mmol/L Normal 136-144 [facility] Comment on above: Order Comment: Speci men Type: BLOOD SPECIMENOrdering Facility: [facility] Address: [address] [place], [place] [address] Performed By: #### 1 9123-9, 2777-, 35873-6 ####[facility] LABIA [id number] [place] [address] [place] Urea nitrogen [Mass/Vol] 21 mg/dL Normal 9-24 [facility] Comment on above: Order Comment: Speci men Type: BLOOD SPECIMENOrdering Facility: [facility] Address: [address] [place], [place] [address] Performed By: #### 1 9123-9, 2777-1, 65844-0 ####[facility] LABIA [id number] [place] [address] [place] Magnesium SerPl-mCncon 11-23 Magnesium [Mass/Vol] 2.0 mg/dL Normal 1.7-2.3 [facility] Comment on above: Order Comment: Speci men Type: BLOOD SPECIMENOrdering Facility: [facility] Address: [address] [place] [address] Performed By: #### 1 9123-9, 2777-, 43657-3 ####[facility] LABIA [id number] [place] [id number] [place] Phosphate SerPl-mCncon 11-23 Phosphate [Mass/Vol] 2.8 mg/dL Normal 2.7-4.8 [facility] Comment on above: Order Comment: Speci men Type: BLOOD SPECIMENOrdering Facility: [facility] Address: [address] [place], [place] [address] Performed By: #### 1 9123-9, 2777-1, 61449-2 ####[facility] LABIA [id number] [place] [address] [place] THERAPY NTon 11-23-2022 THERAPY NT Normal [facility] CBC panel Auto (Bld)on 11-22 Erythrocyte distribution width (RBC) [Ratio] 16.4 % High 11.5-15.0 [facility] Comment on above: Order Comment: Speci men Type: BLOOD SPECIMENOrdering Facility: [facility] Address: [address] [address] Performed By: #### 5 8410-2 ####[facility] [id number] [address] [place] Hematocrit (Bld) [Volume fraction] 36.4 % Low 39.0-51.0 [facility] Comment on above: Order Comment: Speci men Type: BLOOD SPECIMENOrdering Facility: [facility] Address: [address] [address] Performed By: #### 5 8410-2 ####[facility] [id number] [address] [place] Hemoglobin (Bld) [Mass/Vol] 11.6 g/dL Low 13.0-17.0 [facility] Comment on above: Order Comment: Speci men Type: BLOOD SPECIMENOrdering Facility: [facility] Address: [address] Performed By: #### 5 8410-2 ####[facility] [id number] [place] [address] [place] MCH (RBC) [Entitic mass] 28.2 pg Normal 26.0-34.0 [facility] Comment on above: Order Comment: Speci men Type: BLOOD SPECIMENOrdering Facility: [facility] Address: [address] [id number] Performed By: #### 5 8410-2 ####[facility] LABIA [id number] [address] STATES [facility] MCHC (RBC) [Mass/Vol] 31.9 g/dL Normal 30.5-36.0 [facility] Comment on above: Order Comment: Speci men Type: BLOOD SPECIMENOrdering Facility: [facility] Address: [address] Performed By: #### 5 8410-2 ####[facility] LABIA [id number] [place] [address] [place] MCV (RBC) [Entitic vol] 88.6 fL Normal 80.0-100.0 [facility] Comment on above: Order Comment: Speci men Type: BLOOD SPECIMENOrdering Facility: [facility] Address: [address] [place], [place] [address] Performed By: #### 5 8410-2 ####[facility] LABIA [id number] [place] [address] [place] Nucleated RBC (Bld) [#/Vol] 10*3/uL Normal <0.01 [facility] Comment on above: Order Comment: Speci men Type: BLOOD SPECIMENOrdering Facility: [facility] Address: [address] [place], [place] [address] Performed By: #### 5 8410-2 ####[facility] LABIA [id number] [place] [address] [place] Platelet mean volume (Bld) [Entitic vol] 12.5 fL Normal 9.0-12.7 [facility] Comment on above: Order Comment: Speci men Type: BLOOD SPECIMENOrdering Facility: [facility] Address: [address] [place], [place] [address] Performed By: #### 5 8410-2 ####[facility] LABIA [id number] [place] [address] [place] Platelets (Bld) [#/Vol] 115 10*3/uL Low 150-400 [facility] Comment on above: Order Comment: Speci men Type: BLOOD SPECIMENOrdering Facility: [facility] Address: [address] [place] [address] Performed By: #### 5 8410-2 ####[facility] LABCLIA [id number] [place] [address] [place] RBC (Bld) [#/Vol] 4.11 10*6/uL Low 4.20-6.00 [facility] Comment on above: Order Comment: Speci men Type: BLOOD SPECIMENOrdering Facility: [facility] Address: [address] [place] [address] Performed By: #### 5 8410-2 ####[facility] LABCLIA [id number] [place] [address] [place] WBC (Bld) [#/Vol] 2.29 10*3/uL Low 3.70-11.00 [facility] Comment on above: Order Comment: Speci men Type: BLOOD SPECIMENOrdering Facility: [facility] Address: [address] [place] [address] Performed By: #### 5 8410-2 ####[facility] LABCLIA [id number] [place] [address] [place] CK SerPl-cCncon 11-22-2022 CK [Catalytic activity/Vol] 27 U/L Low 51-298 [facility] Comment on above: Order Comment: Speci men Type: BLOOD SPECIMENOrdering Facility: [facility] Address: [address] [place] [address] Performed By: #### 1 9123-9, 95154-6, 2157-6, 2777-1 ####[facility] LABCLIA [id number] [place] [address] [place] Comprehensive metabolic 2000 panelon 11-22-2022 Albumin [Mass/Vol] 3.4 g/dL Low 3.9-4.9 [facility] Comment on above: Order Comment: Speci men Type: BLOOD SPECIMENOrdering Facility: [facility] Address: [address] [place] [address] Performed By: #### 1 9123-9, 98106-2, 2157-03, 2776- ####[facility] LABCLIA [id number] [place] [address] [place] ALP [Catalytic activity/Vol] 79 U/L Normal 38-113 [facility] Comment on above: Order Comment: Speci men Type: BLOOD SPECIMENOrdering Facility: [facility] Address: [address] [place] [address] Performed By: #### 1 9123-9, 98922-2, 2157-03, 2776-10 ####[facility] LABCLIA [id number] [address] [place] ALT [Catalytic activity/Vol] U/L Low 10-54 [facility] Comment on above: Order Comment: Speci men Type: BLOOD SPECIMENOrdering Facility: [facility] Address: [address] [place] [address] Result Comment: Resu lt rechecked. Performed By: #### 1 9123-9, 59482-7, 2157-03, 2776-10 ####[facility] LABIA [id number] [place] [address] [place] Anion gap [Moles/Vol] 10 mmol/L Normal 9-18 [facility] Comment on above: Order Comment: Speci men Type: BLOOD SPECIMENOrdering Facility: [facility] Address: [address] [place] [address] Performed By: #### 1 9123-9, 00146-1, 2157-03, 2776- ####[facility] LABCLIA [id number] [place] [address] [place] AST [Catalytic activity/Vol] 11 U/L Low 14-40 [facility] Comment on above: Order Comment: Speci men Type: BLOOD SPECIMENOrdering Facility: [facility] Address: [address] [place] [address] Performed By: #### 1 9123-9, 73992-8, 2157-03, 2776-10 ####[facility] LABCLIA [id number] [place] [address] [place] Bilirubin [Mass/Vol] mg/dL Low 0.2-1.3 [facility] Comment on above: Order Comment: Speci men Type: BLOOD SPECIMENOrdering Facility: [facility] Address: [address] [place] [address] Performed By: #### 1 9123-9, 93823-2, 2157-03, 2776-10 ####[facility] LABCLIA [id number] [place] [address] [place] Calcium [Mass/Vol] 8.7 mg/dL Normal 8.5-10.2 [facility] Comment on above: Order Comment: Speci men Type: BLOOD SPECIMENOrdering Facility: [facility] Address: [address] [place] [address] Performed By: #### 1 9123-9, 67338-5, 2157-03, 2776-10 ####[facility] LABCLIA [id number] [place] [address] [place] Chloride [Moles/Vol] 109 mmol/L High 97-105 [facility] Comment on above: Order Comment: Speci men Type: BLOOD SPECIMENOrdering Facility: [facility] Address: [address] [place] [address] Performed By: #### 1 9123-9, 21588-3, 2157-03, 2776-10 ####[facility] LABCLIA [id number] [place] [address] [place] CO2 [Moles/Vol] 23 mmol/L Normal 22-30 [facility] Comment on above: Order Comment: Speci men Type: BLOOD SPECIMENOrdering Facility: [facility] Address: [address] [place] [address] Performed By: #### 1 9123-9, 46795-7, 2157-03, 2776-10 ####[facility] LABIA [id number] [place] [address] [place] Creatinine [Mass/Vol] 0.95 mg/dL Normal 0.73-1.22 [facility] Comment on above: Order Comment: Speci men Type: BLOOD SPECIMENOrdering Facility: [facility] Address: [address] [place] [address] Performed By: #### 1 9123-9, 72775-4, 2157-03, 2776-10 ####[facility] [id number] [place] [address] [place] ESTIMATED GLOMERULAR FILTRATION RATE 89 mL/min/1.73m??? Normal >=60 [facility] Comment on above: Order Comment: Speci men Type: BLOOD SPECIMENOrdering Facility: [facility] Address: [address] [place] [address] Result Comment: Karina mated Glomerular Filtration Rate (eGFR) is calculated using the 2020 CKD-EPI creatinine equation. This equation utilizes serum creatinine, sex, and age as parameters. The creatinine assay has traceable calibration to isotope dilution-mass spectrometry. Refer to KDIGO guidelines for clinical interpretation. In patients with unstable renal function, e.g. those with acute kidney injury, the eGFR may not accurately reflect actual GFR. Performed By: #### 1 9123-9, 36350-0, 2157-03, 2776-10 ####[facility] LABIA [id number] [place] [id number] [place] Glucose [Mass/Vol] 101 mg/dL High 74-99 [facility] Comment on above: Order Comment: Speci men Type: BLOOD SPECIMENOrdering Facility: [facility] Address: [address] [place], [place] [address] Result Comment: The [place] [employer] (ADA) provides guidance for cutoff values for fasting glucose and random glucose. The ADA defines fasting as no caloric intake for at least 8 hours. Fasting plasma glucose results between 100 to 125 mg/dL indicate increased risk for diabetes (prediabetes).Fasting plasma glucose results greater than or equal to 126 mg/dL meet the criteria for diagnosis of diabetes. In the absence of unequivocal hyperglycemia, results should be confirmed by repeat testing. In a patient with classic symptoms of hyperglycemia or hyperglycemic crisis, random plasma glucose results greater than or equal to 200 mg/dL meet the criteria for diagnosis of diabetes.Reference: Standards of Medical Care in Diabetes 2016, [place] [employer]. Diabetes Care. 2016.39(Suppl 1). Performed By: #### 1 9123-9, 84011-8, 2157-03, 2776-10 ####[facility] LABCLIA [id number] [place] [address] [place] Potassium [Moles/Vol] 3.9 mmol/L Normal 3.7-5.1 [facility] Comment on above: Order Comment: Princessi joseline Type: BLOOD SPECIMENOrdering Facility: [facility] Address: [address] [place], [place] [address] Performed By: #### 1 9123-9, 24715-1, 2157-03, 2776-10 ####[facility] LABCLIA [id number] [place] [id number] [place] Protein [Mass/Vol] 5.4 g/dL Low 6.3-8.0 [facility] Comment on above: Order Comment: Speci men Type: BLOOD SPECIMENOrdering Facility: [facility] Address: [address] [place], [place] [address] Performed By: #### 1 9123-9, 58189-4, 2157-03, 2776-10 ####[facility] LABCLIA [id number] [place] [address] [place] Sodium [Moles/Vol] 142 mmol/L Normal 136-144 [facility] Comment on above: Order Comment: Speci men Type: BLOOD SPECIMENOrdering Facility: [facility] Address: [address] [place] [address] Performed By: #### 1 9123-9, 88227-5, 2157-03, 2776-10 ####[facility] [id number] [place] [address] [place] Urea nitrogen [Mass/Vol] 19 mg/dL Normal 9-24 [facility] Comment on above: Order Comment: Speci men Type: BLOOD SPECIMENOrdering Facility: [facility] Address: [address] [place] [address] Performed By: #### 1 9123-9, 25048-0, 2157-03, 2776-10 ####[facility] [id number] [place] [address] [place] Magnesium SerPl-mCncon 11-22 Magnesium [Mass/Vol] 2.2 mg/dL Normal 1.7-2.3 [facility] Comment on above: Order Comment: Speci men Type: BLOOD SPECIMENOrdering Facility: [facility] Address: [address] [place] [address] Performed By: #### 1 9123-9, 98699-7, 2157-03, 2776-10 ####[facility] [id number] [place] [address] [place] PT panel Coag (PPP)on 2022 INR Coag (PPP) [Relative time] 1.0 {INR} Normal 0.9-1.3 [facility] Comment on above: Order Comment: Speci men Type: BLOOD SPECIMENOrdering Facility: [facility] Address: [address] [place] [address] Result Comment: Bouchra min K Antagonist (VKA) Therapeutic Range: INR 2 to 3 (Target INR of 2.5)Note: For patients treated with VKA drugs, such as warfarin, the [place] [employer] 2012 Guideline recommends a therapeutic INR range of 2 to 3 (target INR of 2.5). This recommendation includes high-risk patients with antiphospholipid syndrome with previous arterial or venous thromboembolism, current-generation mechanical or bioprosthetic aortic heart valve replacement.Note: Patients with mechanical aortic valve replacement and additional risk factors for thromboembolic events (atrial fibrillation, previous thromboembolism, LV dysfunction, hypercoagulable conditions) or an older generation mechanical AVR (i.e., ball in-Cage) or any mechanical MVR should have a INR therapeutic range of 2.5 to 3.5 (target INR of 3).Mukesh GH, et al. Chest 2012, 141:7S-47SNishmercy RA, et al. [facility] 2017, 70: 252-289 Performed By: #### 3 4528-0 ####[facility] LABIA [id number] [place] [address] [place] PT Coag (PPP) [Time] 10.1 s Normal 9.7-13.0 [facility] Comment on above: Order Comment: Speci men Type: BLOOD SPECIMENOrdering Facility: [facility] Address: [address] [place] [address] Performed By: #### 3 4528-0 ####[facility] LABIA [id number] [place] [address] [place] Phosphate SerPl-mCncon 11-22 Phosphate [Mass/Vol] 3.5 mg/dL Normal 2.7-4.8 [facility] Comment on above: Order Comment: Speci men Type: BLOOD SPECIMENOrdering Facility: [facility] Address: [address] [place] [address] Performed By: #### 1 9123-9, 94713-0, 2157-6, 2777-1 ####[facility] LABCLIA [id number] [address] [place] THERAPY NTon 11-22-2022 THERAPY NT Normal [facility] ALLIED HEALTHon 11-21-2022 ALLIED HEALTH Normal [facility] ALLIED HEALTH Normal [facility] CONSULTon 11-21-2022 CONSULT Normal [facility] CONSULT PROGon 11-21-2022 CONSULT PROG Normal [facility] NUTRITIONon 11-21-2022 NUTRITION Normal [facility] THERAPY NTon 11-21-2022 THERAPY NT Normal [facility] 25(OH)D3 SerPl-mCncon 2022 25-hydroxyvitamin D3 [Mass/Vol] 15.0 ng/mL Low 31.0-80.0 [facility] Comment on above: Order Comment: Speci men Type: BLOOD SPECIMENOrdering Facility: [facility] Address: [address] [place] [address] Result Comment: Clas sification of 25 [place] Vitamin D status:Deficiency/Insufficiency: < or = 30 ng/ml.Sufficiency/Optimal Levels: 31-80 ng/mLToxicity: > 100 ng/mL.Test performed by chemiluminescent immunoassay. Performed By: #### 1 989-3 ####[facility] LABCLIA [id number] [address] [place] CBC W Auto Differential pane l (Bld)on 11-20-2022 Basophils (Bld) [#/Vol] 10*3/uL Normal <0.11 [facility] Comment on above: Order Comment: Speci men Type: BLOOD SPECIMENOrdering Facility: [facility] Address: [address] [place] [address] Performed By: #### 5 8410-2, 78275-4, 77853-8 ####[facility] [id number] [address] [place] [facility] Basophils/100 WBC (Bld) 0.2 % Normal [facility] Comment on above: Order Comment: Speci men Type: BLOOD SPECIMENOrdering Facility: [facility] Address: [address] [place] [address] Performed By: #### 5 8410-2, 34338-6, 84161-9 ####[facility] LABIA [id number] [place] [address] [place] Eosinophils (Bld) [#/Vol] 0.08 10*3/uL Normal <0.46 [facility] Comment on above: Order Comment: Speci men Type: BLOOD SPECIMENOrdering Facility: [facility] Address: [address] Performed By: #### 5 8410-2, 77424-8, 37437-2 ####[facility] LABIA [id number] [place] [address] [place] Eosinophils/100 WBC (Bld) 1.8 % Normal [facility] Comment on above: Order Comment: Speci men Type: BLOOD SPECIMENOrdering Facility: [facility] Address: [address] [place], [place] [address] Performed By: #### 5 8410-2, 13553-6, 58349-7 ####[facility] LABIA [id number] [place] [address] [place] Immature granulocytes (Bld) [#/Vol] 0.03 10*3/uL Normal <0.10 [facility] Comment on above: Order Comment: Speci men Type: BLOOD SPECIMENOrdering Facility: [facility] Address: [address] [place] [address] Performed By: #### 5 8410-2, 41073-6, 54024-9 ####[facility] LABIA [id number] [place] [address] [place] Immature granulocytes/100 WBC (Bld) 0.7 % Normal [facility] Comment on above: Order Comment: Speci men Type: BLOOD SPECIMENOrdering Facility: [facility] Address: [address] [place], [place] [address] Performed By: #### 5 8410-2, 89999-3, 11104-6 ####[facility] LABCLIA [id number] [place] [address] [place] Lymphocytes (Bld) [#/Vol] 0.74 10*3/uL Low 1.00-4.00 [facility] Comment on above: Order Comment: Speci men Type: BLOOD SPECIMENOrdering Facility: [facility] Address: [address] [place] [address] Performed By: #### 5 8410-2, 79073-6, 63005-7 ####[facility] LABIA [id number] [place] [address] [place] Lymphocytes/100 WBC (Bld) 16.4 % Normal [facility] Comment on above: Order Comment: Speci men Type: BLOOD SPECIMENOrdering Facility: [facility] Address: [address] [place], [place] [address] Performed By: #### 5 8410-2, 34478-5, 51958-0 ####[facility] LABIA [id number] [place] [address] [place] Monocytes (Bld) [#/Vol] 0.53 10*3/uL Normal <0.87 [facility] Comment on above: Order Comment: Speci men Type: BLOOD SPECIMENOrdering Facility: [facility] Address: [address] [place], [place] [address] Performed By: #### 5 8410-2, 36142-1, 60261-9 ####[facility] LABIA [id number] [place] [address] [place] Monocytes/100 WBC (Bld) 11.8 % Normal [facility] Comment on above: Order Comment: Speci men Type: BLOOD SPECIMENOrdering Facility: [facility] Address: [address] [place], [place] [address] Performed By: #### 5 8410-2, 52413-6, 11954-5 ####[facility] LABCLIA [id number] [address] [address] [place] Neutrophils (Bld) [#/Vol] 3.11 10*3/uL Normal 1.45-7.50 [facility] Comment on above: Order Comment: Speci men Type: BLOOD SPECIMENOrdering Facility: [facility] Address: [address] [place] [address] Performed By: #### 5 8410-2, 52458-6, 55291-9 ####[facility] LABIA [id number] [place] [address] [place] Neutrophils/100 WBC (Bld) 69.1 % Normal [facility] Comment on above: Order Comment: Speci men Type: BLOOD SPECIMENOrdering Facility: [facility] Address: [address] [place] [address] Performed By: #### 5 8410-2, 80831-2, 75295-0 ####[facility] LABIA [id number] [place] [address] [place] CBC panel Auto (Bld)on 11-20 Erythrocyte distribution width (RBC) [Ratio] 15.9 % High 11.5-15.0 [facility] Comment on above: Order Comment: Speci men Type: BLOOD SPECIMENOrdering Facility: [facility] Address: [address] [place] [address] Performed By: #### 5 8410-2, 22010-4, 74396-6 ####[facility] LABIA [id number] [place] [id number] [place] Hematocrit (Bld) [Volume fraction] 39.8 % Normal 39.0-51.0 [facility] Comment on above: Order Comment: Speci men Type: BLOOD SPECIMENOrdering Facility: [facility] Address: [address] [place], [place] [address] Performed By: #### 5 8410-2, 13876-7, 39212-7 ####[facility] LABIA [id number] [place] [address] [place] Hemoglobin (Bld) [Mass/Vol] 12.5 g/dL Low 13.0-17.0 [facility] Comment on above: Order Comment: Speci men Type: BLOOD SPECIMENOrdering Facility: [facility] Address: [address] [place], [place] [address] Performed By: #### 5 8410-2, 89335-4, 14668-7 ####[facility] LABIA [id number] [place] [address] [place] MCH (RBC) [Entitic mass] 27.9 pg Normal 26.0-34.0 [facility] Comment on above: Order Comment: Speci men Type: BLOOD SPECIMENOrdering Facility: [facility] Address: [address] [place], [place] [address] Performed By: #### 5 8410-2, 09399-0, 32736-9 ####[facility] [id number] [place] [address] [place] MCHC (RBC) [Mass/Vol] 31.4 g/dL Normal 30.5-36.0 [facility] Comment on above: Order Comment: Speci men Type: BLOOD SPECIMENOrdering Facility: [facility] Address: [address] [place] [address] Performed By: #### 5 8410-2, 49651-8, 87138-9 ####[facility] LABIA [id number] [address] [place] MCV (RBC) [Entitic vol] 88.8 fL Normal 80.0-100.0 [facility] Comment on above: Order Comment: Speci men Type: BLOOD SPECIMENOrdering Facility: [facility] Address: [address] [place], [place] [address] Performed By: #### 5 8410-2, 24925-3, 77244-4 ####[facility] LABCLIA [id number] [place] [id number] [place] Nucleated RBC (Bld) [#/Vol] 10*3/uL Normal <0.01 [facility] Comment on above: Order Comment: Speci men Type: BLOOD SPECIMENOrdering Facility: [facility] Address: [address] [place] [address] Performed By: #### 5 8410-2, 22812-5, 84690-3 ####[facility] LABIA [id number] [place] [address] [place] Platelet mean volume (Bld) [Entitic vol] 11.8 fL Normal 9.0-12.7 [facility] Comment on above: Order Comment: Speci men Type: BLOOD SPECIMENOrdering Facility: [facility] Address: [address] [place] [address] Performed By: #### 5 8410-2, 83051-1, 17085-8 ####[facility] LABIA [id number] [place] [address] [place] Platelets (Bld) [#/Vol] 138 10*3/uL Low 150-400 [facility] Comment on above: Order Comment: Speci men Type: BLOOD SPECIMENOrdering Facility: [facility] Address: [address] [place] [address] Result Comment: No c lot detected.Results checked and verified. Performed By: #### 5 8410-2, 56427-8, 32258-0 ####[facility] LABIA [id number] [place] [address] [place] RBC (Bld) [#/Vol] 4.48 10*6/uL Normal 4.20-6.00 [facility] Comment on above: Order Comment: Speci men Type: BLOOD SPECIMENOrdering Facility: [facility] Address: [address] [place], [place] [address] Performed By: #### 5 8410-2, 27936-2, 34339-0 ####[facility] LABCLIA [id number] [place] [address] [place] WBC (Bld) [#/Vol] 4.53 10*3/uL Normal 3.70-11.00 [facility] Comment on above: Order Comment: Speci men Type: BLOOD SPECIMENOrdering Facility: [facility] Address: [address] Performed By: #### 5 8410-2, 16567-7, 21510-7 ####[facility] LABIA [id number] [address] [facility] CONSULTon 11-20-2022 CONSULT Normal [facility] Calcium.ionized [Moles/Vol]o n 11-20-2022 Calcium.ionized (Bld) [Mass/Vol] 1.27 mmol/L Normal 1.08-1.30 [facility] Comment on above: Order Comment: Speci men Type: BLOOD SPECIMENOrdering Facility: [facility] Address: [address] Performed By: #### 1 995-0 ####[facility] LABIA [id number] [address] Calcium.ionized adjusted to pH 7.4 (Bld) [Moles/Vol] 1.23 mmol/L Normal 1.08-1.30 [facility] Comment on above: Order Comment: Speci men Type: BLOOD SPECIMENOrdering Facility: [facility] Address: [address] Performed By: #### 1 995-0 ####[facility] LABIA [id number] [place] [address] [place] Comprehensive metabolic 2000 panelon 11-20-2022 Albumin [Mass/Vol] 4.0 g/dL Normal 3.9-4.9 [facility] Comment on above: Order Comment: Speci men Type: BLOOD SPECIMENOrdering Facility: [facility] Address: [address] [place], [place] [address] Performed By: #### 3 3959-8, , ####[facility] LABCLIA [id number] [place] [address] [place] ALP [Catalytic activity/Vol] 90 U/L Normal 38-113 [facility] Comment on above: Order Comment: Speci men Type: BLOOD SPECIMENOrdering Facility: [facility] Address: [address] [place] [address] Performed By: #### 3 3959-8, , ####[facility] LABCLIA [id number] [place] [address] [place] ALT [Catalytic activity/Vol] 7 U/L Low 10-54 [facility] Comment on above: Order Comment: Speci men Type: BLOOD SPECIMENOrdering Facility: [facility] Address: [address] [place] [address] Performed By: #### 3 3959-8, , ####[facility] LABIA [id number] [place] [address] [place] Anion gap [Moles/Vol] 12 mmol/L Normal 9-18 [facility] Comment on above: Order Comment: Speci men Type: BLOOD SPECIMENOrdering Facility: [facility] Address: [address] [place], [place] [address] Performed By: #### 3 3959-8, , ####[facility] LABCLIA [id number] [place] [address] [place] AST [Catalytic activity/Vol] 11 U/L Low 14-40 [facility] Comment on above: Order Comment: Speci men Type: BLOOD SPECIMENOrdering Facility: [facility] Address: [address] [place] [address] Performed By: #### 3 3959-8, 74786-6, ####[facility] LABCLIA [id number] [place] [address] [place] Bilirubin [Mass/Vol] 0.2 mg/dL Normal 0.2-1.3 [facility] Comment on above: Order Comment: Speci men Type: BLOOD SPECIMENOrdering Facility: [facility] Address: [address] Performed By: #### 3 3959-8, , ####[facility] LABCLIA [id number] [place] [address] [place] Calcium [Mass/Vol] 8.9 mg/dL Normal 8.5-10.2 [facility] Comment on above: Order Comment: Speci men Type: BLOOD SPECIMENOrdering Facility: [facility] Address: [address] Performed By: #### 3 3959-8, , ####[facility] LABCLIA [id number] [place] [address] [place] Chloride [Moles/Vol] 110 mmol/L High 97-105 [facility] Comment on above: Order Comment: Speci men Type: BLOOD SPECIMENOrdering Facility: [facility] Address: [address] [place] [address] Performed By: #### 3 3959-8, , ####[facility] LABCLIA [id number] [place] [address] [place] CO2 [Moles/Vol] 20 mmol/L Low 22-30 [facility] Comment on above: Order Comment: Speci men Type: BLOOD SPECIMENOrdering Facility: [facility] Address: [address] Performed By: #### 3 3959-8, 16384-5, ####[facility] LABIA [id number] [address] [facility] Creatinine [Mass/Vol] 0.95 mg/dL Normal 0.73-1.22 [facility] Comment on above: Order Comment: Chaz trevizo Type: BLOOD SPECIMENOrdering Facility: [facility] Address: [address] [place] [address] Performed By: #### 3 3959-8, , ####[facility] LABIA [id number] [address] OF [facility] ESTIMATED GLOMERULAR FILTRATION RATE 89 mL/min/1.73m??? Normal >=60 [facility] Comment on above: Order Comment: Chaz trevizo Type: BLOOD SPECIMENOrdering Facility: [facility] Address: [address] [place] [address] Result Comment: Karina mated Glomerular Filtration Rate (eGFR) is calculated using the 2020 CKD-EPI creatinine equation. This equation utilizes serum creatinine, sex, and age as parameters. The creatinine assay has traceable calibration to isotope dilution-mass spectrometry. Refer to KDIGO guidelines for clinical interpretation. In patients with unstable renal function, e.g. those with acute kidney injury, the eGFR may not accurately reflect actual GFR. Performed By: #### 3 3959-8, , ####[facility] LABIA [id number] [place] [id number] [place] Glucose [Mass/Vol] 74 mg/dL Normal 74-99 [facility] Comment on above: Order Comment: Chaz trevizo Type: BLOOD SPECIMENOrdering Facility: [facility] Address: [address] [place] [address] Result Comment: The [place] Diabetes Association (ADA) provides guidance for cutoff values for fasting glucose and random glucose. The ADA defines fasting as no caloric intake for at least 8 hours. Fasting plasma glucose results between 100 to 125 mg/dL indicate increased risk for diabetes (prediabetes).Fasting plasma glucose results greater than or equal to 126 mg/dL meet the criteria for diagnosis of diabetes. In the absence of unequivocal hyperglycemia, results should be confirmed by repeat testing. In a patient with classic symptoms of hyperglycemia or hyperglycemic crisis, random plasma glucose results greater than or equal to 200 mg/dL meet the criteria for diagnosis of diabetes.Reference: Standards of Medical Care in Diabetes 2016, [place] Diabetes Association. Diabetes Care. 2016.39(Suppl 1). Performed By: #### 3 3959-8, , ####[facility] LABCLIA [id number] [place] [address] [place] Potassium [Moles/Vol] 4.2 mmol/L Normal 3.7-5.1 [facility] Comment on above: Order Comment: Speci men Type: BLOOD SPECIMENOrdering Facility: [facility] Address: [address] [place] [address] Performed By: #### 3 3959-8, , ####[facility] LABCLIA [id number] [place] [address] [place] Protein [Mass/Vol] 6.2 g/dL Low 6.3-8.0 [facility] Comment on above: Order Comment: Speci men Type: BLOOD SPECIMENOrdering Facility: [facility] Address: [address] [place] [address] Performed By: #### 3 3959-8, , ####[facility] LABCLIA [id number] [place] [address] [place] Sodium [Moles/Vol] 142 mmol/L Normal 136-144 [facility] Comment on above: Order Comment: Speci men Type: BLOOD SPECIMENOrdering Facility: [facility] Address: [address] Performed By: #### 3 3959-8, , ####[facility] LABCLIA [id number] [place] [address] [place] Urea nitrogen [Mass/Vol] 26 mg/dL High 9-24 [facility] Comment on above: Order Comment: Speci men Type: BLOOD SPECIMENOrdering Facility: [facility] Address: [address] [place] [address] Performed By: #### 3 3959-8, 63546-5, 78880-8 ####[facility] LABCLIA [id number] [place] [address] [place] XIO91iw 11-20-2022 ECG01 Normal [facility] ED PROV NOTEon 11-20-2022 ED PROV NOTE Normal [facility] ED PROV NOTE Normal [facility] HISTORY PHYSICALon HISTORY PHYSICAL Normal [facility] LIPID PANEL, NONFASTINGon Cholesterol [Mass/Vol] 135 mg/dL Normal <200 [facility] Comment on above: Order Comment: Speci men Type: BLOOD SPECIMENOrdering Facility: [facility] Address: [address] [place] [address] Result Comment: <200 mg/dL, Desirable 200-239 mg/dL, Borderline high>239 mg/dL, High Performed By: #### L IPNF ####[facility] LABCLIA [id number] [place] [address] [place] HDL CHOLESTEROL, NF 35 mg/dL Low >39 [facility] Comment on above: Order Comment: Speci men Type: BLOOD SPECIMENOrdering Facility: [facility] Address: [address] [place], [place] [address] Result Comment: 40-5 9 mg/dL, Acceptable>59 mg/dL, High: Negative risk factor for coronary heart disease<40 mg/dL, Low: Positive risk factor for coronary heart disease Performed By: #### L IPNF ####[facility] LABCLIA [id number] [place] [address] [place] LDL CHOLESTEROL, NF 76 mg/dL Normal <100 [facility] Comment on above: Order Comment: Speci men Type: BLOOD SPECIMENOrdering Facility: [facility] Address: [address] [place] [address] Result Comment: <100 mg/dL, Optimal 100-129 mg/dL, Near optimal/above optimal 130-159 mg/dL, Borderline high 160-189 mg/dL, High>189 mg/dL, Very highSecondary prevention optimal LDL Cholesterol levels are recommended to be < 70 mg/dL Performed By: #### L IPNF ####[facility] LABCLIA [id number] [address] LDL/HDL RATIO, NF 2.17 mg/dL Normal <2.54 [facility] Comment on above: Order Comment: Chaz men Type: BLOOD SPECIMENOrdering Facility: [facility] Address: [address] [place] [address] Result Comment: Refe rence:1. National Cholesterol Education Program ATP III Guideline At-A-Glance Quick Desk Reference: National Heart, Lung, and Blood [place]. National Institutes of Health. 2001: NIH Publication No. 01-3305.2. An International Atherosclerosis Society position paper: global recommendations for the management of dyslipidemia: executive summary, Atherosclerosis. 2014: 232(2):410-413. Performed By: #### L IPNF ####[facility] LABCLIA [id number] [address] [place] NON HDL CHOL, NF 100 mg/dL Normal <130 [facility] Comment on above: Order Comment: Princessi joseline Type: BLOOD SPECIMENOrdering Facility: [facility] Address: [address] [place] [address] Result Comment: <130 mg/dL, Optimal 130-159 mg/dL, Near optimal/above optimal 160-189 mg/dL, Borderline high 190-219 mg/dL, High>219 mg/dL, Very highSecondary prevention optimal non HDL Cholesterol levels are recommended to be <100 mg/dL Performed By: #### L IPNF ####[facility] LABCLIA [id number] [place] [address] [place] T CHOL/HDL RATIO NF 3.86 mg/dL Normal <5.10 [facility] Comment on above: Order Comment: Speci men Type: BLOOD SPECIMENOrdering Facility: [facility] Address: [address] [place] [address] Performed By: #### L IPNF ####[facility] LABCLIA [id number] [place] [address] [place] TRIGLYCERIDES, NF 118 mg/dL Normal <150 [facility] Comment on above: Order Comment: Speci men Type: BLOOD SPECIMENOrdering Facility: [facility] Address: [address] [place] [address] Result Comment: <150 mg/dL, Normal 150-199 mg/dL, Borderline high 200-499 mg/dL, High>499 mg/dL, Very high Performed By: #### L IPNF ####[facility] LABCLIA [id number] [place] [address] [place] VLDL CHOLESTEROL, NF 24 mg/dL Normal <30 [facility] Comment on above: Order Comment: Speci men Type: BLOOD SPECIMENOrdering Facility: [facility] Address: [address] [place] [address] Performed By: #### L IPNF ####[facility] LABCLIA [id number] [place] [address] [place] Magnesium SerPl-mCncon 11-20 Magnesium [Mass/Vol] 2.1 mg/dL Normal 1.7-2.3 [facility] Comment on above: Order Comment: Speci men Type: BLOOD SPECIMENOrdering Facility: [facility] Address: [address] [place] [address] Performed By: #### 3 3959-8, 56051-0, 94806-3 ####[facility] LABCLIA [id number] [place] [address] [place] Prealb SerPl-mCncon 11-20-19 23 Prealbumin [Mass/Vol] 25 mg/dL Normal 17-36 [facility] Comment on above: Order Comment: Speci men Type: BLOOD SPECIMENOrdering Facility: [facility] Address: [address] [place] [address] Performed By: #### 1 4338-8 ####[facility] LABCLIA [id number] [place] [address] [place] Procalcitonin SerPl-mCncon 0 11-20-2022 Procalcitonin [Mass/Vol] 0.10 ng/mL High <0.09 [facility] Comment on above: Order Comment: Speci men Type: BLOOD SPECIMENOrdering Facility: [facility] Address: [address] [place] [address] Result Comment: For a guided interpretation of test results, please visit the Change in Procalcitonin Calculator, [email or web address]. Performed By: #### 3 3959-8, 66496-8, 40675-6 ####[facility] LABCLIA [id number] [address] [place] Retics #on 11-20-2022 Reticulocytes (Bld) [#/Vol] 0.51803 10*3/uL Normal 0.018-0.10 0 [facility] Comment on above: Order Comment: Speci men Type: BLOOD SPECIMENOrdering Facility: [facility] Address: [address] [place] [address] Performed By: #### 5 8410-2, 43444-4, 81245-5 ####[facility] LABCLIA [id number] [address] [place] Reticulocytes (Bld) [#/Vol]o n 11-20-2022 Reticulocytes/100 RBC (Bld) 1.4 % Normal 0.4-2.0 [facility] Comment on above: Order Comment: Speci men Type: BLOOD SPECIMENOrdering Facility: [facility] Address: [address] [place] [address] Performed By: #### 5 8410-2, 39721-1, 72291-4 ####[facility] LABCLIA [id number] [address] [place] SARS-CoV-2 RNA Resp Ql KELLIE+p robeon 11-20-2022 SARS-CoV-2 (COVID-19) RNA KELLIE+probe Ql (Resp) COVID 19 RESULT: Detected The method used is RT-PCR or an equivalent NAAT method. Reference Range(the expected result in uninfected individuals): Not detected Normal [facility] Comment on above: Performed By: #### 9 4500-6 ####[facility] LABIA [id number] [place] [address] [place] Urinalysis complete panel (U )on 11-20-2022 Bilirubin Ql (U) Negative Normal Negative [facility] Comment on above: Order Comment: Speci men Type: URINE SPECIMENOrdering Facility: [facility] Address: [address] [place] [address] Performed By: #### 2 4356-8 ####[facility] LABIA [id number] [place] [address] [place] Clarity (Unsp spec) Clear Normal Clear [facility] Comment on above: Order Comment: Speci men Type: URINE SPECIMENOrdering Facility: [facility] Address: [address] [place] [address] Performed By: #### 2 4356-8 ####[facility] LABIA [id number] [address] [place] Color (U) Yellow Normal Yellow [facility] Comment on above: Order Comment: Speci men Type: URINE SPECIMENOrdering Facility: [facility] Address: [address] [place] [address] Performed By: #### 2 4356-8 ####[facility] LABCLIA [id number] [address] [place] Glucose Test strip (U) [Mass/Vol] Negative Normal Trace, Negative [facility] Comment on above: Order Comment: Speci men Type: URINE SPECIMENOrdering Facility: [facility] Address: [address] [place] [address] Performed By: #### 2 4356-8 ####[facility] LABCLIA [id number] [place] [address] [place] Hemoglobin Ql (U) Negative Normal Negative, Trace [facility] Comment on above: Order Comment: Speci men Type: URINE SPECIMENOrdering Facility: [facility] Address: [address] [place] [address] Performed By: #### 2 4356-8 ####[facility] LABCLIA [id number] [place] [address] [place] Ketones Ql (U) Trace Normal Trace, Negative [facility] Comment on above: Order Comment: Speci men Type: URINE SPECIMENOrdering Facility: [facility] Address: [address] [place] [address] Performed By: #### 2 4356-8 ####[facility] LABCLIA [id number] [address] [place] Leukocyte esterase Test strip Ql (U) Negative Normal Negative, 25 Winter/mL [facility] Comment on above: Order Comment: Speci men Type: URINE SPECIMENOrdering Facility: [facility] Address: [address] [place], [place] [address] Performed By: #### 2 4356-8 ####[facility] LABCLIA [id number] [place] [address] [place] Nitrite Ql (U) Negative Normal Negative [facility] Comment on above: Order Comment: Speci men Type: URINE SPECIMENOrdering Facility: [facility] Address: [address] [place], [place] [address] Performed By: #### 2 4356-8 ####[facility] LABIA [id number] [address] STATES [facility] pH (U) 5.0 [pH] Normal 5.0-8.0 [facility] Comment on above: Order Comment: Speci men Type: URINE SPECIMENOrdering Facility: [facility] Address: [address] [place] [address] Performed By: #### 2 4356-8 ####[facility] LABIA [id number] [place] [address] [place] Protein (U) [Mass/Vol] Trace Normal Trace, Negative [facility] Comment on above: Order Comment: Speci men Type: URINE SPECIMENOrdering Facility: [facility] Address: [address] [place], [place] [address] Performed By: #### 2 4356-8 ####[facility] LABIA [id number] [place] [address] [place] RBC LM.HPF (Urine sed) [#/Area] 3-5 /HPF Abnormal 0-3 /HPF [facility] Comment on above: Order Comment: Speci men Type: URINE SPECIMENOrdering Facility: [facility] Address: [address] [place], [place] [address] Performed By: #### 2 4356-8 ####[facility] LABIA [id number] [place] [address] [place] Specific gravity (U) [Rel density] 1.020 Normal 1.005-1.03 0 [facility] Comment on above: Order Comment: Speci men Type: URINE SPECIMENOrdering Facility: [facility] Address: [address] [place], [place] [address] Performed By: #### 2 4356-8 ####[facility] LABIA [id number] [place] [address] [place] Urobilinogen Ql (U) Negative Normal Negative [facility] Comment on above: Order Comment: Speci men Type: URINE SPECIMENOrdering Facility: [facility] Address: [address] [place] [address] Performed By: #### 2 4356-8 ####[facility] LABIA [id number] [place] [address] [place] WBC LM.HPF (Urine sed) [#/Area] 0-5 /HPF Normal 0-5 /HPF [facility] Comment on above: Order Comment: Speci men Type: URINE SPECIMENOrdering Facility: [facility] Address: [address] [place] [address] Performed By: #### 2 4356-8 ####[facility] [id number] [place] [address] [place] XR CHEST 1V FRONTAL PORTon 0 11-20-2022 XR CHEST 1V FRONTAL PORT Normal [facility] CBC AUTO DIFFon 11-09-2022 BASO # 0.0 103/ul Normal 0.0-0.1 [facility] Comment on above: Performed By: #### C BC #### [facility] [address] [place] [address] Dr. Bruce Nicholas Basophils/100 WBC (Bld) 0.1 % Critically low 0.2-2.0 [facility] Comment on above: Performed By: #### C BC #### [facility] [address] [address] [address] Bruce Nicholas EO # 0.0 103/ul Normal 0.0-0.7 [facility] Comment on above: Performed By: #### C BC #### [facility] [address] [place] [address] Dr. Bruce Nicholas Eosinophils/100 WBC (Bld) 0.0 % Critically low 0.9-7.0 [facility] Comment on above: Performed By: #### C BC #### [facility] [address] [address] [address] Bruce Nicholas Erythrocyte distribution width (RBC) [Ratio] 16.0 % Critically high 11.0-15.0 [facility] Comment on above: Performed By: #### C BC #### [facility] [address] [place] [address] Dr. Bruce Nicholas Hematocrit (Bld) [Volume fraction] 36.6 % Critically low 42.0-54.0 [facility] Comment on above: Performed By: #### C BC #### [facility] [address] [place] [address] Dr. Bruce Nicholas Hemoglobin (Bld) [Mass/Vol] 12.3 g/dL Critically low 14.0-18.0 [facility] Comment on above: Performed By: #### C BC #### [facility] [address] [place] [address] Dr. Bruce Nicholas IG # 0.06 10e3/ul Critically high 0.00-0.03 [facility] Comment on above: Performed By: #### C BC #### [facility] [address] [place] [address] Dr. Bruce Nicholas IG % 0.7 % Critically high 0.0-0.5 [facility] Comment on above: Performed By: #### C BC #### [facility] [address] [place] [address] Dr. Bruce Nicholas LYMPH # 1.0 103/ul Critically low 1.2-3.8 [facility] Comment on above: Performed By: #### C BC #### [facility] [address] [place] [address] Dr. Bruce Nicholas Lymphocytes/100 WBC (Bld) 11.8 % Critically low 20.5-60.0 [facility] Comment on above: Performed By: #### C BC #### [facility] [address] [place] [address] Dr. Bruce Nicholas MANUAL DIFF REQ NO Normal [facility] Comment on above: Performed By: #### C BC #### [facility] [address] [address] [address] Bruce Nicholas MCH (RBC) [Entitic mass] 27.3 pg Normal 25.9-34.0 [facility] Comment on above: Performed By: #### C BC #### [facility] [address] [address] [address] Bruce Nicholas MCHC (RBC) [Mass/Vol] 33.6 g/dL Normal 29.9-35.2 [facility] Comment on above: Performed By: #### C BC #### [facility] [address] [address] [address] Bruce Nicholas MCV (RBC) [Entitic vol] 81.2 fL Normal 80.0-94.0 [facility] Comment on above: Performed By: #### C BC #### [facility] [address] [place] [address] Dr. Bruce Nicholas MONO # 0.2 103/ul Critically low 0.3-0.8 [facility] Comment on above: Performed By: #### C BC #### [facility] [address] [place] [address] Dr. Bruce Nicholas Monocytes/100 WBC (Bld) 3.0 % Normal 1.7-12.0 [facility] Comment on above: Performed By: #### C BC #### [facility] [address] [place] [address] Dr. Bruce Nicholas NEUT # 6.8 103/ul Critically high 1.4-6.5 [facility] Comment on above: Performed By: #### C BC #### [facility] [address] [place] [address] Dr. Bruce Nicholas Neutrophils/100 WBC (Bld) 84.4 % Critically high 43.0-75.0 [facility] Comment on above: Performed By: #### C BC #### [facility] [address] [place] [address] Dr. Bruce Nicholas Platelet mean volume (Bld) [Entitic vol] 11.6 fL Normal 9.5-13.5 [facility] Comment on above: Performed By: #### C BC #### [facility] [address] [address] [address] Bruce Nicholas PLT 206 103/ul Normal 150-450 [facility] Comment on above: Performed By: #### C BC #### [facility] [address] [address] [address] Bruce Nicholas RBC 4.51 106/ul Critically low 4.70-6.10 [facility] Comment on above: Performed By: #### C BC #### [facility] [address] [address] [address] Bruce Nicholas WBC 8.1 103/ul Normal 4.0-11.0 [facility] Comment on above: Performed By: #### C BC #### [facility] [address] [place] [address] Dr. Bruce Nicholas POINT OF CARE GLUCOSEon 10-20 Glucose [Mass/Vol] 134 mg/dL Critically high 74-106 [facility] Comment on above: Performed By: #### P OCGLUC #### [facility] [address] [address] [address] Bruce Nicholas PROF CHEM 8 (BAS METB)on Anion gap [Moles/Vol] 13.3 mmol/L Normal [facility] Comment on above: Performed By: #### P OCGLUC #### [facility] [address] [address] [address] Bruce Nicholas Calcium [Mass/Vol] 9.0 mg/dL Normal 8.5-10.1 [facility] Comment on above: Performed By: #### P OCGLUC #### [facility] [address] [address] [address] Bruce Nicholas Chloride [Moles/Vol] 105 mmol/L Normal 98-107 [facility] Comment on above: Performed By: #### P OCGLUC #### [facility] [address] [address] [address] Bruce Nicholas CO2 [Moles/Vol] 24.9 mmol/L Normal 21.0-32.0 [facility] Comment on above: Performed By: #### P OCGLUC #### [facility] [address] [address] [address] Bruce Nicholas Creatinine [Mass/Vol] 0.86 mg/dL Normal 0.70-1.30 [facility] Comment on above: Performed By: #### P OCGLUC #### [facility] [address] [address] [address] Bruce Nicholas EGFR-AF COSTA RICAN >60 Normal >=60 [facility] Comment on above: Performed By: #### P OCGLUC #### [facility] [address] [address] [address] Bruce Nicholas EGFR-NON AF COSTA RICAN >60 Normal >=60 [facility] Comment on above: Performed By: #### P OCGLUC #### [facility] [address] [address] [address] Bruce Nicholas Glucose [Mass/Vol] 127 mg/dL Critically high 74-106 [facility] Comment on above: Performed By: #### P OCGLUC #### [facility] [address] [address] [address] Bruce Nicholas Potassium [Moles/Vol] 4.2 mmol/L Normal 3.5-5.1 [facility] Comment on above: Performed By: #### P OCGLUC #### [facility] [address] [address] [address] Bruce Nicholas Sodium [Moles/Vol] 139 mmol/L Normal 136-145 [facility] Comment on above: Performed By: #### P OCGLUC #### [facility] [address] [address] [address] Bruce Nicholas Urea nitrogen [Mass/Vol] 30.0 mg/dL Critically high 7.0-18.0 [facility] Comment on above: Performed By: #### P OCGLUC #### [facility] [address] [address] [address] Bruce Nicholas Urea nitrogen/Creatinin e [Mass ratio] 34.9 mg/mg Normal [facility] Comment on above: Performed By: #### P OCGLUC #### [facility] [address] [place] [address] Dr. Bruce Nicholas CBC AUTO DIFFon 11-08-2022 BASO # 0.0 103/ul Normal 0.0-0.1 [facility] Comment on above: Performed By: #### C VDTBH #### [facility] [address] [place] [address] Dr. Bruce Nicholas Basophils/100 WBC (Bld) 0.1 % Critically low 0.2-2.0 [facility] Comment on above: Performed By: #### C VDTBH #### [facility] [address] [place] [address] Dr. Bruce Nicholas EO # 0.0 103/ul Normal 0.0-0.7 [facility] Comment on above: Performed By: #### C VDTBH #### [facility] [address] [place] [address] Dr. Bruce Nicholas Eosinophils/100 WBC (Bld) 0.0 % Critically low 0.9-7.0 [facility] Comment on above: Performed By: #### C VDTBH #### [facility] [address] [place] [address] Dr. Bruce Nicholas Erythrocyte distribution width (RBC) [Ratio] 15.8 % Critically high 11.0-15.0 [facility] Comment on above: Performed By: #### C VDTBH #### [facility] [address] [place] [address] Dr. Bruce Nicholas Hematocrit (Bld) [Volume fraction] 33.4 % Critically low 42.0-54.0 [facility] Comment on above: Performed By: #### C VDTBH #### [facility] [address] [place] [address] Dr. Bruce Nicholas Hemoglobin (Bld) [Mass/Vol] 11.5 g/dL Critically low 14.0-18.0 [facility] Comment on above: Performed By: #### C VDTBH #### [facility] [address] [place] [address] Dr. Bruce Nicholas IG # 0.05 10e3/ul Critically high 0.00-0.03 [facility] Comment on above: Performed By: #### C VDTBH #### [facility] [address] [place] [address] Dr. Bruce Nicholas IG % 0.5 % Normal 0.0-0.5 [facility] Comment on above: Performed By: #### C VDTBH #### [facility] [address] [place] [address] Dr. Bruce Nicholas LYMPH # 0.9 103/ul Critically low 1.2-3.8 [facility] Comment on above: Performed By: #### C VDTBH #### [facility] [address] [place] [address] Dr. Bruce Nicholas Lymphocytes/100 WBC (Bld) 9.6 % Critically low 20.5-60.0 [facility] Comment on above: Performed By: #### C VDTBH #### [facility] [address] [place] [address] Dr. Bruce Nicholas MANUAL DIFF REQ NO Normal [facility] Comment on above: Performed By: #### C VDTBH #### [facility] [address] [place] [address] Dr. Bruce Nicholas MCH (RBC) [Entitic mass] 27.5 pg Normal 25.9-34.0 [facility] Comment on above: Performed By: #### C VDTBH #### [facility] [address] [place] [address] Dr. Bruce Nicholas MCHC (RBC) [Mass/Vol] 34.4 g/dL Normal 29.9-35.2 [facility] Comment on above: Performed By: #### C VDTBH #### [facility] [address] [place] [address] Dr. Bruce Nicholas MCV (RBC) [Entitic vol] 79.9 fL Critically low 80.0-94.0 [facility] Comment on above: Performed By: #### C VDTBH #### [facility] [address] [place] [address] Dr. Bruce Nicholas MONO # 0.3 103/ul Normal 0.3-0.8 [facility] Comment on above: Performed By: #### C VDTBH #### [facility] [address] [place] [address] Dr. Bruce Nicholas Monocytes/100 WBC (Bld) 3.3 % Normal 1.7-12.0 [facility] Comment on above: Performed By: #### C VDTBH #### [facility] [address] [place] [address] Dr. Bruce Nicholas NEUT # 8.3 103/ul Critically high 1.4-6.5 [facility] Comment on above: Performed By: #### C VDTBH #### [facility] [address] [place] [address] Dr. Bruce Nicholas Neutrophils/100 WBC (Bld) 86.5 % Critically high 43.0-75.0 [facility] Comment on above: Performed By: #### C VDTBH #### [facility] [address] [place] [address] Dr. Bruce Nicholas Platelet mean volume (Bld) [Entitic vol] 12.1 fL Normal 9.5-13.5 [facility] Comment on above: Performed By: #### C VDTBH #### [facility] [address] [place] [address] Dr. Bruce Nicholas PLT 205 103/ul Normal 150-450 [facility] Comment on above: Performed By: #### C VDTBH #### [facility] [address] [place] [address] Dr. Bruce Nicholas RBC 4.18 106/ul Critically low 4.70-6.10 [facility] Comment on above: Performed By: #### C VDTBH #### [facility] [address] [place] [address] Dr. Bruce Nicholas WBC 9.6 103/ul Normal 4.0-11.0 [facility] Comment on above: Performed By: #### C VDTBH #### [facility] [address] [place] [address] Dr. Bruce Nicholas POINT OF CARE GLUCOSEon 10-20 Glucose [Mass/Vol] 121 mg/dL Critically high 74-106 [facility] Comment on above: Performed By: #### C VDTBH #### [facility] [address] [address] [address] Bruce Nicholas Glucose [Mass/Vol] 126 mg/dL Critically high 74-106 [facility] Comment on above: Performed By: #### C BC #### [facility] [address] [address] [address] Bruce Nicholas Glucose [Mass/Vol] 164 mg/dL Critically high 74-106 [facility] Comment on above: Performed By: #### C BC #### [facility] [address] [address] [address] Bruce Nicholas PROF CHEM 8 (BAS METB)on Anion gap [Moles/Vol] 14.2 mmol/L Normal [facility] Comment on above: Performed By: #### P OCGLUC #### [facility] [address] [place] [address] Dr. Bruce Nicholas Calcium [Mass/Vol] 8.9 mg/dL Normal 8.5-10.1 [facility] Comment on above: Performed By: #### P OCGLUC #### [facility] [address] [place] [address] Dr. Bruce Nicholas Chloride [Moles/Vol] 107 mmol/L Normal 98-107 [facility] Comment on above: Performed By: #### P OCGLUC #### [facility] [address] [place] [address] Dr. Bruce Nicholas CO2 [Moles/Vol] 22.8 mmol/L Normal 21.0-32.0 [facility] Comment on above: Performed By: #### P OCGLUC #### [facility] [address] [place] [address] Dr. Bruce Nicholas Creatinine [Mass/Vol] 0.94 mg/dL Normal 0.70-1.30 [facility] Comment on above: Performed By: #### P OCGLUC #### [facility] [address] [address] [address] Bruce Nicholas EGFR-AF COSTA RICAN >60 Normal >=60 [facility] Comment on above: Performed By: #### P OCGLUC #### [facility] [address] [address] [address] Bruce Nicholas EGFR-NON AF COSTA RICAN >60 Normal >=60 [facility] Comment on above: Performed By: #### P OCGLUC #### [facility] [address] [address] [address] Bruce Nicholas Glucose [Mass/Vol] 128 mg/dL Critically high 74-106 [facility] Comment on above: Performed By: #### P OCGLUC #### [facility] [address] [address] [address] Bruce Nicholas Potassium [Moles/Vol] 4.0 mmol/L Normal 3.5-5.1 [facility] Comment on above: Performed By: #### P OCGLUC #### [facility] [address] [address] [address] Bruce Nicholas Sodium [Moles/Vol] 140 mmol/L Normal 136-145 [facility] Comment on above: Performed By: #### P OCGLUC #### [facility] [address] [address] [address] Bruce Nicholas Urea nitrogen [Mass/Vol] 33.0 mg/dL Critically high 7.0-18.0 [facility] Comment on above: Performed By: #### P OCGLUC #### [facility] [address] [address] [address] Bruce Nicholas Urea nitrogen/Creatinin e [Mass ratio] 35.1 mg/mg Normal [facility] Comment on above: Performed By: #### P OCGLUC #### [facility] [address] [address] [address] Bruce Nicholas XR CHEST 2 Von 11-08-2022 XR CHEST 2 V EXAM: XR CHEST 2 V COMPARISON STUDY: AP chest 11/05/2022. HISTORY: Pneumonia. FINDINGS: A total of 2 images were obtained. IMPRESSION: 1. There is stable asymmetric elevation/eventration left hemidiaphragm. Associated left basilar predominant mild patchy atelectasis/pneumonitis persists. Small left pleural effusion cannot be excluded. 2. The heart size is stable. Linear discoid atelectasis involving the left perihilar region noted. Right lung is clear. There is no pneumothorax. 3. Prior anterior plate and screw fixation lower cervical spine, left glenohumeral arthroplasty as well as prior placement of dorsal column stimulator device. 4. 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 Old healed lower left rib fracture deformities again identified. Electronically authenticated by: EN HUIZARH Date: 2022-11-08 13:38 Normal [facility] CBC AUTO DIFFon 11-07-2022 BASO # 0.0 103/ul Normal 0.0-0.1 [facility] Comment on above: Performed By: #### C BC #### [facility] [address] [address] [address] Bruce Nicholas Basophils/100 WBC (Bld) 0.0 % Critically low 0.2-2.0 [facility] Comment on above: Performed By: #### C BC #### [facility] [address] [address] [address] Bruce Nicholas EO # 0.0 103/ul Normal 0.0-0.7 [facility] Comment on above: Performed By: #### C BC #### [facility] [address] [address] [address] Bruce Nicholas Eosinophils/100 WBC (Bld) 0.0 % Critically low 0.9-7.0 [facility] Comment on above: Performed By: #### C BC #### [facility] [address] [address] [address] Bruce Nicholas Erythrocyte distribution width (RBC) [Ratio] 16.1 % Critically high 11.0-15.0 [facility] Comment on above: Performed By: #### C BC #### [facility] [address] [address] [address] Bruce Nicholas Hematocrit (Bld) [Volume fraction] 36.3 % Critically low 42.0-54.0 [facility] Comment on above: Performed By: #### C BC #### [facility] [address] [address] [address] Bruce Nicholas Hemoglobin (Bld) [Mass/Vol] 11.5 g/dL Critically low 14.0-18.0 [facility] Comment on above: Performed By: #### C BC #### [facility] [address] [address] [address] Bruce Nicholas IG # 0.07 10e3/ul Critically high 0.00-0.03 [facility] Comment on above: Performed By: #### C BC #### [facility] [address] [address] [address] Bruce Nicholas IG % 0.6 % Critically high 0.0-0.5 [facility] Comment on above: Performed By: #### C BC #### [facility] [address] [address] [address] Bruce Nicholas LYMPH # 0.9 103/ul Critically low 1.2-3.8 [facility] Comment on above: Performed By: #### C BC #### [facility] [address] [address] [address] Bruce Nicholas Lymphocytes/100 WBC (Bld) 7.2 % Critically low 20.5-60.0 [facility] Comment on above: Performed By: #### C BC #### [facility] [address] [address] [address] Bruce Nicholas MANUAL DIFF REQ NO Normal [facility] Comment on above: Performed By: #### C BC #### [facility] [address] [address] [address] Bruce Nicholas MCH (RBC) [Entitic mass] 27.7 pg Normal 25.9-34.0 [facility] Comment on above: Performed By: #### C BC #### [facility] [address] [address] [address] Bruce Nicholas MCHC (RBC) [Mass/Vol] 31.7 g/dL Normal 29.9-35.2 [facility] Comment on above: Performed By: #### C BC #### [facility] [address] [address] [address] Bruce Nicholas MCV (RBC) [Entitic vol] 87.5 fL Normal 80.0-94.0 [facility] Comment on above: Performed By: #### C BC #### [facility] [address] [address] [address] Bruce Nicholas MONO # 0.3 103/ul Normal 0.3-0.8 [facility] Comment on above: Performed By: #### C BC #### [facility] [address] [address] [address] Bruce Nicholas Monocytes/100 WBC (Bld) 2.9 % Normal 1.7-12.0 [facility] Comment on above: Performed By: #### C BC #### [facility] [address] [address] [address] Bruce Nicholas NEUT # 10.6 103/ul Critically high 1.4-6.5 [facility] Comment on above: Performed By: #### C BC #### [facility] [address] [address] [address] Bruce Nicholas Neutrophils/100 WBC (Bld) 89.3 % Critically high 43.0-75.0 [facility] Comment on above: Performed By: #### C BC #### [facility] [address] [address] [address] Bruce Nicholas Platelet mean volume (Bld) [Entitic vol] 12.4 fL Normal 9.5-13.5 [facility] Comment on above: Performed By: #### C BC #### [facility] [address] [address] [address] Bruce Nicholas PLT 195 103/ul Normal 150-450 [facility] Comment on above: Performed By: #### C BC #### [facility] [address] [address] [address] Bruce Nichoals RBC 4.15 106/ul Critically low 4.70-6.10 [facility] Comment on above: Performed By: #### C BC #### [facility] [address] [address] [address] Bruce Nicholas WBC 11.9 103/ul Critically high 4.0-11.0 [facility] Comment on above: Performed By: #### C BC #### [facility] [address] [address] [address] Bruce Nicholas POINT OF CARE GLUCOSEon 10-20 Glucose [Mass/Vol] 145 mg/dL Critically high 74-106 [facility] Comment on above: Performed By: #### P OCGLUC #### [facility] [address] [address] [address] Bruce Nicholas Glucose [Mass/Vol] 139 mg/dL Critically high -106 [facility] Comment on above: Performed By: #### C BC #### [facility] [address] [place] [address] Dr. Bruce Nicholas Glucose [Mass/Vol] 122 mg/dL Critically high -106 [facility] Comment on above: Performed By: #### P OCGLUC #### [facility] [address] [address] [address] Bruce Nicholas PROF CHEM 8 (BAS METB)on Anion gap [Moles/Vol] 14.8 mmol/L Normal [facility] Comment on above: Performed By: #### C BC #### [facility] [address] [address] [address] Bruce Nicholas Calcium [Mass/Vol] 9.0 mg/dL Normal 8.5-10.1 [facility] Comment on above: Performed By: #### C BC #### [facility] [address] [place] [address] Dr. Bruce Nicholas Chloride [Moles/Vol] 107 mmol/L Normal 98-107 [facility] Comment on above: Performed By: #### C BC #### [facility] [address] [place] [address] Dr. Bruce Nicholas CO2 [Moles/Vol] 21.3 mmol/L Normal 21.0-32.0 [facility] Comment on above: Performed By: #### C BC #### [facility] [address] [address] [address] Bruce Nicholas Creatinine [Mass/Vol] 1.11 mg/dL Normal 0.70-1.30 [facility] Comment on above: Performed By: #### C BC #### [facility] [address] [address] [address] Bruce Nicholas EGFR-AF CO[place] RICAN >60 Normal >=60 [facility] Comment on above: Performed By: #### C BC #### [facility] [address] [address] [address] Bruce Nicholas EGFR-NON AF COSTA RICAN >60 Normal >=60 [facility] Comment on above: Performed By: #### C BC #### [facility] [address] [place] [address] Dr. Bruce Nicholas Glucose [Mass/Vol] 158 mg/dL Critically high 74-106 [facility] Comment on above: Performed By: #### C BC #### [facility] [address] [place] [address] Dr. Bruce Nicholas Potassium [Moles/Vol] 4.1 mmol/L Normal 3.5-5.1 [facility] Comment on above: Performed By: #### C BC #### [facility] [address] [place] [address] Dr. Bruce Nicholas Sodium [Moles/Vol] 139 mmol/L Normal 136-145 [facility] Comment on above: Performed By: #### C BC #### [facility] [address] [place] [address] Dr. Bruce Nicholas Urea nitrogen [Mass/Vol] 28.0 mg/dL Critically high 7.0-18.0 [facility] Comment on above: Performed By: #### C BC #### [facility] [address] [place] [address] Dr. Bruce Nicholas Urea nitrogen/Creatinin e [Mass ratio] 25.2 mg/mg Normal [facility] Comment on above: Performed By: #### C BC #### [facility] [address] [place], [place] [id number] Dr. Bruce Nicholas CBC AUTO DIFFon 11-06-2022 BASO # 0.0 103/ul Normal 0.0-0.1 [facility] Comment on above: Performed By: #### C BC #### [facility] [address] [place] [address] Dr. Bruce Nicholas Basophils/100 WBC (Bld) 0.0 % Critically low 0.2-2.0 [facility] Comment on above: Performed By: #### C BC #### [facility] [address] [place] [address] Dr. Bruce Nicholas EO # 0.0 103/ul Normal 0.0-0.7 [facility] Comment on above: Performed By: #### C BC #### [facility] [address] [place] [address] Dr. Bruce Nicholas Eosinophils/100 WBC (Bld) 0.0 % Critically low 0.9-7.0 [facility] Comment on above: Performed By: #### C BC #### [facility] [address] [place] [address] Dr. Bruce Nicholas Erythrocyte distribution width (RBC) [Ratio] 15.8 % Critically high 11.0-15.0 [facility] Comment on above: Performed By: #### C BC #### [facility] [address] [place] [address] Dr. Bruce Nicholas Hematocrit (Bld) [Volume fraction] 37.1 % Critically low 42.0-54.0 [facility] Comment on above: Performed By: #### C BC #### [facility] [address] [place] [address] Dr. Bruce Nicholas Hemoglobin (Bld) [Mass/Vol] 11.7 g/dL Critically low 14.0-18.0 [facility] Comment on above: Performed By: #### C BC #### [facility] [address] [place] [address] Dr. Bruce Nicholas IG # 0.03 10e3/ul Normal 0.00-0.03 [facility] Comment on above: Performed By: #### C BC #### [facility] [address] [place] [address] Dr. Bruce Nicholas IG % 0.4 % Normal 0.0-0.5 [facility] Comment on above: Performed By: #### C BC #### [facility] [address] [place] [address] Dr. Bruce Nicholas LYMPH # 0.7 103/ul Critically low 1.2-3.8 [facility] Comment on above: Performed By: #### C BC #### [facility] [address] [place] [address] Dr. Bruce Nicholas Lymphocytes/100 WBC (Bld) 9.9 % Critically low 20.5-60.0 [facility] Comment on above: Performed By: #### C BC #### [facility] [address] [place] [address] Dr. Bruce Nicholas MANUAL DIFF REQ NO Normal [facility] Comment on above: Performed By: #### C BC #### [facility] [address] [place] [address] Dr. Bruce Nicholas MCH (RBC) [Entitic mass] 27.3 pg Normal 25.9-34.0 [facility] Comment on above: Performed By: #### C BC #### [facility] [address] [place] [address] Dr. Bruce Nicholas MCHC (RBC) [Mass/Vol] 31.5 g/dL Normal 29.9-35.2 [facility] Comment on above: Performed By: #### C BC #### [facility] [address] [place] [address] Dr. Bruce Nicholas MCV (RBC) [Entitic vol] 86.5 fL Normal 80.0-94.0 [facility] Comment on above: Performed By: #### C BC #### [facility] [address] [place] [address] Dr. Bruce Nicholas MONO # 0.1 103/ul Critically low 0.3-0.8 [facility] Comment on above: Performed By: #### C BC #### [facility] [address] [address] [address] Bruce Nicholas Monocytes/100 WBC (Bld) 1.9 % Normal 1.7-12.0 [facility] Comment on above: Performed By: #### C BC #### [facility] [address] [place] [address] Dr. Bruce Nicholas NEUT # 6.0 103/ul Normal 1.4-6.5 [facility] Comment on above: Performed By: #### C BC #### [facility] [address] [place] [address] Dr. Bruce Nicholas Neutrophils/100 WBC (Bld) 87.8 % Critically high 43.0-75.0 [facility] Comment on above: Performed By: #### C BC #### [facility] [address] [place] [address] Dr. Bruce Nicholas Platelet mean volume (Bld) [Entitic vol] 12.4 fL Normal 9.5-13.5 [facility] Comment on above: Performed By: #### C BC #### [facility] [address] [place] [address] Dr. Bruce Nicholas PLT 186 103/ul Normal 150-450 [facility] Comment on above: Performed By: #### C BC #### [facility] [address] [place] [address] Dr. Bruce Nicholas RBC 4.29 106/ul Critically low 4.70-6.10 [facility] [place] Comment on above: Performed By: #### C BC #### [facility] [address] [place] [address] Dr. Bruce Nicholas WBC 6.9 103/ul Normal 4.0-11.0 [facility] Comment on above: Performed By: #### C BC #### [facility] [address] [place] [address] Dr. Bruce Nicholas POINT OF CARE GLUCOSEon 10-19 Glucose [Mass/Vol] 139 mg/dL Critically high 74-[address] [facility] Comment on above: Performed By: #### P OCGLUC #### [facility] [address] [place] [address] Dr. Bruce Nicholas Glucose [Mass/Vol] 129 mg/dL Critically high 74-106 [facility] Comment on above: Performed By: #### P OCGLUC #### [facility] [address] [address] [address] Bruce Nicholas Glucose [Mass/Vol] 128 mg/dL Critically high 74-106 [facility] Comment on above: Performed By: #### P OCGLUC #### [facility] [address] [address] [address] Bruce Nicholas PROF CHEM 8 (BAS METB)on Anion gap [Moles/Vol] 17.3 mmol/L Normal [facility] Comment on above: Performed By: #### C BC #### [facility] [address] [place] [address] Dr. Bruce Nicholas Calcium [Mass/Vol] 9.0 mg/dL Normal 8.5-10.1 [facility] Comment on above: Performed By: #### C BC #### [facility] [address] [place] [address] Dr. Bruce Nicholas Chloride [Moles/Vol] 107 mmol/L Normal 98-107 [facility] Comment on above: Performed By: #### C BC #### [facility] [address] [place] [address] Dr. Bruce Nicholas CO2 [Moles/Vol] 20.4 mmol/L Critically low 21.0-32.0 [facility] Comment on above: Performed By: #### C BC #### [facility] [address] [place] [address] Dr. Bruce Nicholas Creatinine [Mass/Vol] 1.12 mg/dL Normal 0.70-1.30 [facility] Comment on above: Performed By: #### C BC #### [facility] [address] [place] [address] Dr. Bruce Nicholas EGFR-AF COSTA RICAN >60 Normal >=60 [facility] Comment on above: Performed By: #### C BC #### [facility] [address] [place] [address] Dr. Bruce Nicholas EGFR-NON AF COSTA RICAN >60 Normal >=60 [facility] Comment on above: Performed By: #### C BC #### [facility] [address] [address] [address] Bruce Nicholas Glucose [Mass/Vol] 184 mg/dL Critically high 74-[address] [facility] Comment on above: Performed By: #### C BC #### [facility] [address] [address] [address] Bruce Nicholas Potassium [Moles/Vol] 3.7 mmol/L Normal 3.5-5.1 [facility] Comment on above: Performed By: #### C BC #### [facility] [address] [place] [address] Dr. Bruce Nicholas Sodium [Moles/Vol] 141 mmol/L Normal 136-145 [facility] Comment on above: Performed By: #### C BC #### [facility] [address] [place] [address] Dr. Bruce Nicholas Urea nitrogen [Mass/Vol] 25.0 mg/dL Critically high 7.0-18.0 [facility] Comment on above: Performed By: #### C BC #### [facility] [address] [place] [address] Dr. Bruce Nicholas Urea nitrogen/Creatinin e [Mass ratio] 22.3 mg/mg Normal [facility] Comment on above: Performed By: #### C BC #### [facility] [address] [place] [address] Dr. Bruce Nicholas BNPon 11-05-2022 Natriuretic peptide B (Bld) [Mass/Vol] 131.0 pg/mL Normal <=900.0 [facility] Comment on above: Performed By: #### C BC #### [facility] [address] [place] [address] Dr. Bruce Nicholas CARDIAC EAMON ADMITon 023 CK [Catalytic activity/Vol] 44 U/L Normal 39-308 [facility] Comment on above: Performed By: #### C BC #### [facility] [address] [place] [address] Dr. Bruce Nicholas CK.MB [Mass/Vol] 1.08 ng/mL Normal <=3.60 [facility] Comment on above: Performed By: #### C BC #### [facility] [address] [place] [address] Dr. Bruce Nicholas HSTROP 5.2 pg/mL Normal 4.0-76.1 [facility] Comment on above: Result Comment: CUT- OFF POINTS HAVE BEEN ESTABLISHED BASED ON THE FOURTH UNIVERSAL DEFINITIONS OF MYOCARDIAL INFARCTION. THE UPPER REFERENCE LIMIT (URL) OF TROPONIN, DEFINED THE 99TH PERCENTILE OF cTnI DISTRIBUTION IN A REFERENCE POPULATION, HAS BEEN CONFIRMED THE DECISION THRESHOLD FOR MO DIAGNOSIS. Performed By: #### C BC #### [facility] [address] [place] [address] Dr. Bruce Nicholas DAVID 57 ng/mL Normal 16-96 [facility] Comment on above: Performed By: #### C BC #### [facility] [address] [place] [address] Dr. Bruce Nicholas CBC AUTO DIFFon 11-05-2022 BASO # 0.0 103/ul Normal 0.0-0.1 [facility] Comment on above: Performed By: #### C BC #### [facility] [address] [place] [address] Dr. Bruce Nicholas Basophils/100 WBC (Bld) 0.6 % Normal 0.2-2.0 [facility] Comment on above: Performed By: #### C BC #### [facility] [address] [place] [address] Dr. Bruce Nicholas EO # 0.1 103/ul Normal 0.0-0.7 [facility] Comment on above: Performed By: #### C BC #### [facility] [address] [place] [address] Dr. Bruce Nicholas Eosinophils/100 WBC (Bld) 1.3 % Normal 0.9-7.0 [facility] Comment on above: Performed By: #### C BC #### [facility] [address] [place] [address] Dr. Bruce Nicholas Erythrocyte distribution width (RBC) [Ratio] 15.4 % Critically high 11.0-15.0 [facility] Comment on above: Performed By: #### C BC #### [facility] [address] [place] [address] Dr. Bruce Nicholas Hematocrit (Bld) [Volume fraction] 44.9 % Normal 42.0-54.0 [facility] Comment on above: Performed By: #### C BC #### [facility] [address] [place] [address] Dr. Bruce Nicholas Hemoglobin (Bld) [Mass/Vol] 14.0 g/dL Normal 14.0-18.0 [facility] Comment on above: Performed By: #### C BC #### [facility] [address] [place] [address] Dr. Bruce Nicholas IG # 0.02 10e3/ul Normal 0.00-0.03 [facility] Comment on above: Performed By: #### C BC #### [facility] [address] [place] [address] Dr. Bruce Nicholas IG % 0.3 % Normal 0.0-0.5 [facility] Comment on above: Performed By: #### C BC #### [facility] [address] [place] [address] Dr. Bruce Nicholas LYMPH # 2.3 103/ul Normal 1.2-3.8 [facility] Comment on above: Performed By: #### C BC #### [facility] [address] [place] [address] Dr. Bruce Nicholas Lymphocytes/100 WBC (Bld) 31.7 % Normal 20.5-60.0 [facility] Comment on above: Performed By: #### C BC #### [facility] [address] [place] [address] Dr. Bruce Nicholas MANUAL DIFF REQ NO Normal [facility] [place] Comment on above: Performed By: #### C BC #### [facility] [address] [place] [address] Dr. Bruce Nicholas MCH (RBC) [Entitic mass] 27.3 pg Normal 25.9-34.0 [facility] Comment on above: Performed By: #### C BC #### [facility] [address] [address] [address] Bruce Nicholas MCHC (RBC) [Mass/Vol] 31.2 g/dL Normal 29.9-35.2 [facility] Comment on above: Performed By: #### C BC #### [facility] [address] [address] [address] Bruce Nicholas MCV (RBC) [Entitic vol] 87.5 fL Normal 80.0-94.0 [facility] Comment on above: Performed By: #### C BC #### [facility] [address] [place] [address] Dr. Bruce Nicholas MONO # 0.5 103/ul Normal 0.3-0.8 [facility] Comment on above: Performed By: #### C BC #### [facility] [address] [place] [address] Dr. Bruce Nicholas Monocytes/100 WBC (Bld) 7.6 % Normal 1.7-12.0 [facility] Comment on above: Performed By: #### C BC #### [facility] [address] [place] [address] Dr. Bruce Nicholas NEUT # 4.2 103/ul Normal 1.4-6.5 [facility] Comment on above: Performed By: #### C BC #### [facility] [address] [place] [address] Dr. Bruce Nicholas Neutrophils/100 WBC (Bld) 58.5 % Normal 43.0-75.0 [facility] Comment on above: Performed By: #### C BC #### [facility] [address] [place] [address] Dr. Bruce Nicholas Platelet mean volume (Bld) [Entitic vol] 12.6 fL Normal 9.5-13.5 [facility] Comment on above: Performed By: #### C BC #### [facility] [address] [place] [address] Dr. Bruce Nicholas PLT 211 103/ul Normal 150-450 [facility] Comment on above: Performed By: #### C BC #### [facility] [address] [place] [address] Dr. Bruce Nicholas RBC 5.13 106/ul Normal 4.70-6.10 [facility] Comment on above: Performed By: #### C BC #### [facility] [address] [place] [address] Dr. Bruce Nicholas WBC 7.1 103/ul Normal 4.0-11.0 [facility] Comment on above: Performed By: #### C BC #### [facility] [address] [place] [address] Dr. Bruce Nicholas CULTURE BLOODon 11-05-2022 Microscopic examination of blood, culture Culture Observations: NO GROWTH AT 5 DAYS. Normal [facility] Comment on above: Performed By: #### C VDTBH #### [facility] [address] [place] [address] Dr. Bruce Nicholas Microscopic examination of blood, culture Culture Observations: NO GROWTH AT 5 DAYS. Normal [facility] Comment on above: Performed By: #### B LDCX1 #### [facility] [address] [place] [address] Dr. Bruce Nicholas Covid-19 PCR ([facility])on 10-19 SARS-CoV-2 (COVID-19) RNA KELLIE+probe Ql (Unsp spec) Not detected Normal NOT DETECTED [facility] Comment on above: Result Comment: When diagnostic testing is negative, the possibility of a false negative should be considered in the context of a patient's recent exposures and the presence of clinical signs and symptoms consistent with SARS-CoV-2. This test is not yet approved or cleared by the [place] FDA. When there are no FDA-approved or cleared tests available, and other criteria are met, FDA can make tests available under an emergency access mechanism called an Emergency Use Authorization (EUA). The EUA for this test is supported by the [employer] of Health and Human Service's declaration that circumstances exist to justify the emergency use of in vitro diagnostics for the detection and/or diagnosis of the virus that causes COVID-19. This EUA will remain in effect for the duration of the COVID-19 declaration justifying emergency of IVDs, unless it is terminated or revoked by the FDA (after which the test may no longer be used). Performed By: #### C VDTBH #### [facility] [address] [place] [address] Dr. Bruce Nicholas INFLUENZA A AND B AGon 11-05 [facility] SEE BELOW Normal [facility] Comment on above: Result Comment: Nega tive for Flu A protein angiten. Infection due to Flu A cannot be ruled out. Flu A angiten in the sample may be below the detection limit of the test. Performed By: #### C BC #### [facility] [address] [place] [address] Dr. [facility] Normal [facility] Comment on above: Result Comment: Nega tive for Flu B protein antigen. Infection due to Flu B cannot be ruled out. Flu B antigen in the sample may be below the detection limit of the test. Performed By: #### C BC #### [facility] [address] [place] [address] Dr. Bruce Nicholas INFLUENZA A AG Negative Normal NEGATIVE SEE COMMENT [facility] Comment on above: Performed By: #### C BC #### [facility] [address] [place] [address] Dr. Bruce Nicholas INFLUENZA B AG Negative Normal NEGATIVE SEE COMMENT [facility] Comment on above: Performed By: #### C BC #### [facility] [address] [place] [address] Dr. Bruce Nicholas POINT OF CARE GLUCOSEon 10-19 Glucose [Mass/Vol] 190 mg/dL Critically high 74-106 [facility] Comment on above: Performed By: #### P OCGLUC #### [facility] [address] [place] [address] Dr. Bruce Nicholas Glucose [Mass/Vol] 129 mg/dL Critically high 74-106 [facility] Comment on above: Performed By: #### C VDTBH #### [facility] [address] [place] [address] Dr. Bruce Nicholas Glucose [Mass/Vol] 110 mg/dL Critically high 74-106 [facility] Comment on above: Performed By: #### C BC #### [facility] [address] [address] [address] Bruce Nicholas PROF CHEM 8 (BAS METB)on Anion gap [Moles/Vol] 16.0 mmol/L Normal [facility] Comment on above: Performed By: #### C BC #### [facility] [address] [place] [address] Dr. Bruce Nicholas Calcium [Mass/Vol] 9.4 mg/dL Normal 8.5-10.1 [facility] Comment on above: Performed By: #### C BC #### [facility] [address] [place] [address] Dr. Bruce Nicholas Chloride [Moles/Vol] 106 mmol/L Normal 98-107 [facility] Comment on above: Performed By: #### C BC #### [facility] [address] [place] [address] Dr. Bruce Nicholas CO2 [Moles/Vol] 25.2 mmol/L Normal 21.0-32.0 [facility] Comment on above: Performed By: #### C BC #### [facility] [address] [place] [address] Dr. Bruce Nicholas Creatinine [Mass/Vol] 1.09 mg/dL Normal 0.70-1.30 [facility] Comment on above: Performed By: #### C BC #### [facility] [address] [place] [address] Dr. Bruce Nicholas EGFR-AF COSTA RICAN >60 Normal >=60 [facility] Comment on above: Performed By: #### C BC #### [facility] [address] [place] [address] Dr. Bruce Nicholas EGFR-NON AF COSTA RICAN >60 Normal >=60 [facility] Comment on above: Performed By: #### C BC #### [facility] [address] [place] [address] Dr. Bruce Nicholas Glucose [Mass/Vol] 107 mg/dL Critically high 74-106 [facility] Comment on above: Performed By: #### C BC #### [facility] [address] [place], [place] [address] Dr. Bruce Nicholas Potassium [Moles/Vol] 3.2 mmol/L Critically low 3.5-5.1 [facility] Comment on above: Performed By: #### C BC #### [facility] [address] [place], [place] [address] Dr. Bruce Nicholas Sodium [Moles/Vol] 144 mmol/L Normal 136-145 [facility] Comment on above: Performed By: #### C BC #### [facility] [address] [address] [address] Bruce Nicholas Urea nitrogen [Mass/Vol] 20.0 mg/dL Critically high 7.0-18.0 [facility] Comment on above: Performed By: #### C BC #### [facility] [address] [address] [address] Bruce Nicholas Urea nitrogen/Creatinin e [Mass ratio] 18.3 mg/mg Normal [facility] Comment on above: Performed By: #### C BC #### [facility] [id number] Bruce Nicholas XR CHEST 1 Von 11-05-2022 XR CHEST 1 V EXAMINATION: XR CHES T 1 V HISTORY: SHORTNESS OF BREATH COMPARISON: 07/25/2021 TECHNIQUE: AP portable FINDINGS: LUNGS: Elevation of the left hemidiaphragm. Left basilar infiltrate, slightly increased. The right lung is clear. VASCULATURE: No increased pulmonary vasculature. PLEURA: No pneumothorax, effusion, or pleural thickening. CARDIAC: No cardiomegaly or cardiac silhouette abnormality. MEDIASTINUM: No visible mass or adenopathy. BONES: No fracture or visible bone lesion. Cervical fusion hardware. Moderate/severe right glenohumeral osteoarthropathy. Left humeral head arthroplasty. OTHER: Negative. IMPRESSION: Increase in left basilar infiltrate Electronically authenticated by: LIZETH MCDONOUGH Date: 2022-11-05 08:05 Normal [facility] CT LSPINE WO CONon 2 CT LSPINE WO CON EXAMINATION: CT TSPI NE WO CON, CT LSPINE WO CON HISTORY: Lumbosacral stenosis , chronic lumbar pain, incontinence, history of spinal tumor with surgery, effusion, laminectomy. COMPARISON: No relevant comparison available. TECHNIQUE: Axial, Coronal, and Sagittal CT images obtained without and with IV contrast. Dose reduction techniques were achieved by using automated exposure control and/or adjustment of mA and/or kV according to patient size and/or use of iterative reconstruction technique. FINDINGS: PARASPINAL AREA: Normal with no visible mass. DISCS: Marked central canal narrowing at L1-L2 secondary to moderate diffuse disc bulging and bilateral mild facet hypertrophy and ligamentum flavum thickening. Marked foramen narrowing bilaterally at L2-L3. Moderate foramen narrowing L1-L2 on left, L3-L4 on right, L4-L5 bilaterally, L5-S1 bilaterally. Moderate marked disc height reduction alignment 2 through L5-S1. Multilevel mild disc bulge in the thoracic spine. BONES: Anterior mechanical fusion C6-C7-T1. Posterior mechanical fusion L2-L5, posterior decompression of L2-L5, and osseous fusion of the facet joints L2-L5. Moderate right convex curvature lumbar spine. No fracture or bone lesion. OTHER: Neurostimulator electrodes within the central canal posterior to T7-T8-9 vertebral bodies. Small nonobstructing kidney stones bilaterally. IMPRESSION: 1. Multilevel degenerative changes predominantly involving the lumbar spine. Marked central canal narrowing L1-L2 likely contributing to patient's symptoms. Marked foraminal narrowing L2-L3. Multilevel moderate narrowing. Electronically authenticated by: DON MURRAY Date: 2022-10-09 13:29 Normal [facility] POINT OF CARE GLUCOSEon 12-2 Glucose [Mass/Vol] 81 mg/dL Normal 74-106 [facility] Comment on above: Performed By: #### [facility] #### [facility] [address] [address] [address] Bruce Nicholas Glucose [Mass/Vol] 69 mg/dL Critically low 74-106 [facility] Comment on above: Performed By: #### C BC #### [facility] [address] [address] [address] Bruce Nicholas XR MYELOGRAM LSPINE EXPon XR MYELOGRAM LSPINE EXP EXAMINATION: XR MYELOGRAM LSPINE EXP, XR MYELOGRAM T SPINE W INJ HISTORY: Lumbosacral stenosis COMPARISON: XR L-spine 09/08/2022 FLUOROSCOPY TIME: Fluoro time measures 55 seconds and 6 images were obtained. TECHNIQUE: After obtaining the patient's informed consent, a lumbar myelogram was performed in the usual sterile manner via lumbar puncture. Standard level fluoroscopic mode of operation utilized. FINDINGS: PARASPINAL AREA: Normal with no visible mass. BONES: Right convex curvature lumbar spine with posterior mechanical fusion L2-S1 via bilateral pedicle screws and rods. Posterior decompression L2-L5. CORD/CAUDA EQUINA: Normal caliber and contour. The conus terminates at a normal level. CENTRAL CANAL: Narrowing of central canal at the L1-2 disc level with loss of approximately 60% of its diameter. IMPRESSION: 1. Moderate-marked focal central canal narrowing at level of L1-2 intervertebral disc. 2. Mechanical fusion L5-S1 with posterior decompression of L1-L5. 3. Please see CT thoracic spine and CT lumbar studies which will be performed today. Electronically authenticated by: DON MURRAY Date: 2022-10-08 11:11 Normal [facility] A1C with Estimated Average [facility] 09-03-2022 Glucose [Mass/Vol] 108 mg/dL Normal [facility] Comment on above: Order Comment: Reaso n for Exam Hyperglycemia Result Comment: PERF ORMED BY: [place] [address] PATHOLOGIST CLINICAL AUDIOLOGIST SIVAKUMAR PALACIOS M.D. Performed By: #### B MP #### [facility] [address] [place] [address] HbA1c (Bld) [Mass fraction] 5.4 % Normal 4.3-5.6 [facility] Comment on above: Order Comment: Reaso n for Exam Hyperglycemia Result Comment: Incr eased risk for diabetes: 5.7 - 6.4 diabetes: >6.4 glycemic control for adults with diabetes: <7.0 Performed By: #### B MP #### [facility] [address] [place] [address] Comprehensive Metabolic Pane lisy 09-03-2022 Albumin [Mass/Vol] 3.5 g/dL Normal 3.2-5.5 [facility] Comment on above: Order Comment: Reaso n for Exam Hyperlipidemia Performed By: #### S CAN CBC, LIPID, CMP, A1C WTH eA, TSH3 #### [facility] [address] [place] [address] [place] Albumin/Globulin [Mass ratio] 1.2 {ratio} Normal [facility] Comment on above: Order Comment: Reaso n for Exam Hyperlipidemia Performed By: #### S CAN CBC, LIPID, CMP, A1C WTH eA, TSH3 #### [facility] [address] [id number] [email or web address]] ALP [Catalytic activity/Vol] 76 U/L Normal 32-92 [facility] Comment on above: Order Comment: Reaso n for Exam Hyperlipidemia Performed By: #### S CAN CBC, LIPID, CMP, A1C WTH eA, TSH3 #### [facility] [address] ALT [Catalytic activity/Vol] 5 U/L Low 10-60 [facility] Comment on above: Order Comment: Reaso n for Exam Hyperlipidemia Performed By: #### S CAN CBC, LIPID, CMP, A1C WTH eA, TSH3 #### [facility] [address] Anion gap [Moles/Vol] 6.6 mmol/L Normal 6.0-15.0 [facility] Comment on above: Order Comment: Reaso n for Exam Hyperlipidemia Performed By: #### S CAN CBC, LIPID, CMP, A1C WTH eA, TSH3 #### [facility] [address] [place] [address] [place] AST [Catalytic activity/Vol] 11 U/L Normal 10-42 [facility] Comment on above: Order Comment: Reaso n for Exam Hyperlipidemia Performed By: #### S CAN CBC, LIPID, CMP, A1C WTH eA, TSH3 #### [facility] [address] [place] [address] [place] Bilirubin [Mass/Vol] 0.4 mg/dL Normal 0.3-1.2 [facility] Comment on above: Order Comment: Reaso n for Exam Hyperlipidemia Performed By: #### S CAN CBC, LIPID, CMP, A1C WTH eA, TSH3 #### [facility] [address] Calcium [Mass/Vol] 9.2 mg/dL Normal 8.2-10.2 [facility] Comment on above: Order Comment: Reaso n for Exam Hyperlipidemia Performed By: #### S CAN CBC, LIPID, CMP, A1C WTH eA, TSH3 #### [facility] [address] Chloride [Moles/Vol] 112 mmol/L Normal 95-114 [facility] Comment on above: Order Comment: Reaso n for Exam Hyperlipidemia Performed By: #### S CAN CBC, LIPID, CMP, A1C WTH eA, TSH3 #### [facility] [address] CO2 [Moles/Vol] 26.0 mmol/L Normal 22.0-30.0 [facility] Comment on above: Order Comment: Reaso n for Exam Hyperlipidemia Performed By: #### S CAN CBC, LIPID, CMP, A1C WTH eA, TSH3 #### [facility] [address] Creatinine [Mass/Vol] 1.08 mg/dL Normal 0.64-1.27 [facility] Comment on above: Order Comment: Reaso n for Exam Hyperlipidemia Performed By: #### S CAN CBC, LIPID, CMP, A1C WTH eA, TSH3 #### [facility] [address] Estimated GFR ( Mirna > 60 [facility] Comment on above: Order Comment: Reaso n for Exam Hyperlipidemia Result Comment: GFR estimated reference range: According to KDOQI guidelines, <60 ml/min/1.73m2 is sufficient to diagnose a patient with chronic kidney disease. Performed By: #### S CAN CBC, LIPID, CMP, A1C WTH eA, TSH3 #### [facility] [address] [place] [address] [place] Estimated GFR (Non- Am > 60 [facility] Comment on above: Order Comment: Reaso n for Exam Hyperlipidemia Performed By: #### S CAN CBC, LIPID, CMP, A1C WTH eA, TSH3 #### [facility] [address] [place] [address] [place] Globulin (S) [Mass/Vol] 3.0 g/dL Normal [facility] Comment on above: Order Comment: Reaso n for Exam Hyperlipidemia Performed By: #### S CAN CBC, LIPID, CMP, A1C WTH eA, TSH3 #### [facility] [address] Glucose [Mass/Vol] 90 mg/dL Normal 70-100 [facility] Comment on above: Order Comment: Reaso n for Exam Hyperlipidemia Result Comment: [facility] Glucose Reference Range is dependent on time and content of last meal. Glucose of more than 200 mg/dL in a nonstressed, ambulatory subject supports the diagnosis of Diabetes Mellitus. ADA recommended reference range Performed By: #### S CAN CBC, LIPID, CMP, A1C WTH eA, TSH3 #### [facility] [address] Potassium [Moles/Vol] 4.6 mmol/L Normal 3.5-5.1 [facility] Comment on above: Order Comment: Reaso n for Exam Hyperlipidemia Performed By: #### S CAN CBC, LIPID, CMP, A1C WTH eA, TSH3 #### [facility] [address] [place] [address] [place] Protein [Mass/Vol] 6.5 g/dL Normal 6.1-7.9 [facility] Comment on above: Order Comment: Reaso n for Exam Hyperlipidemia Performed By: #### S CAN CBC, LIPID, CMP, A1C WTH eA, TSH3 #### [facility] [address] [place] [id number] [place] Sodium [Moles/Vol] 140 mmol/L Normal 136-146 [facility] Comment on above: Order Comment: Reaso n for Exam Hyperlipidemia Performed By: #### S CAN CBC, LIPID, CMP, A1C WTH eA, TSH3 #### [facility] [address] [place] [id number] [place] Urea nitrogen [Mass/Vol] 24 mg/dL High 9-23 [facility] Comment on above: Order Comment: Reaso n for Exam Hyperlipidemia Performed By: #### S CAN CBC, LIPID, CMP, A1C WTH eA, TSH3 #### [facility] [address] [place] [address] [place] Lipid Panelon 09-03-2022 Cholesterol [Mass/Vol] 98 mg/dL Low 140-200 [facility] Comment on above: Order Comment: Reaso n for Exam Hyperlipidemia Result Comment: Chol less than 200 mg/dl low risk Chol 201-239 mg/dl borderline risk Chol 240 mg/dl and greater high risk Performed By: #### S CAN CBC, LIPID, CMP, A1C [facility], TSH3 #### [facility] [address] [place] [id number] [facility] [[email or web address]] Cholesterol in HDL [Mass/Vol] 34 mg/dL Normal 29-71 [facility] Comment on above: Order Comment: Reaso n for Exam Hyperlipidemia Result Comment: HDL CHOL ATP-III CLASSIFICATION Cardiovascular Risk HDL > or equal to 60 mg/dL LOW HDL < 40 mg/dL HIGH Performed By: #### S CAN CBC, LIPID, CMP, A1C [facility], TSH3 #### [facility] [address] [place] [id number] [facility] [[email or web address]] Cholesterol.total/ Cholesterol in HDL [Mass ratio] 2.9 {ratio} Normal <5.0 [facility] Comment on above: Order Comment: Reaso n for Exam Hyperlipidemia Performed By: #### S CAN CBC, LIPID, CMP, A1C [facility], TSH3 #### [facility] [address] [place] [id number] [facility] [[email or web address]] LDL Cholesterol,Calcul ated 49 mg/dL Normal 0-100 [facility] Comment on above: Order Comment: Reaso n for Exam Hyperlipidemia Result Comment: LDL ATP III CLASSIFICATION LDL less than 100 mg/dL Optimal LDL 100-129 mg/dL Near or above optimal LDL 130-159 mg/dL Borderline high LDL 160-189 mg/dL High LDL greater than 189 mg/dL Very high Performed By: #### S CAN CBC, LIPID, CMP, A1C [facility], TSH3 #### [facility] [address] [place] [address] [place] Triglyceride w/Reflex 77 mg/dL Normal 35-149 [facility] Comment on above: Order Comment: Reaso n for Exam Hyperlipidemia Result Comment: TRIG ATP III CLASSIFICATION TRIG less than 150 mg/dL Normal TRIG 150-199 mg/dL Borderline high TRIG 200-500 mg/dL High TRIG greater than 500 mg/dL Very high Standard traceable to the Center for Disease Conrtrol and Prevention (CDC) test method. Performed By: #### S CAN CBC, LIPID, CMP, A1C WT eA, TSH3 #### [facility] [address] VLDL CHOLESTEROL 15 mg/dL Normal [facility] Comment on above: Order Comment: Reaso n for Exam Hyperlipidemia Performed By: #### S CAN CBC, LIPID, CMP, A1C WT eA, TSH3 #### [facility] [address] Scan and CBCon 09-03-2022 Anisocytosis Ql (Bld) Slight Normal [facility] Comment on above: Order Comment: Reaso n for Exam Hyperlipidemia Performed By: #### B MP #### [address] Basophils (Bld) [#/Vol] 0.0 10*3/uL Normal 0.0-0.2 [facility] Comment on above: Order Comment: Reaso n for Exam Hyperlipidemia Performed By: #### B MP #### [address] Basophils/100 WBC (Bld) 0.4 % Normal . [facility] Comment on above: Order Comment: Reaso n for Exam Hyperlipidemia Performed By: #### B MP #### [address] Eosinophils (Bld) [#/Vol] 0.1 10*3/uL Normal 0.0-0.45 [facility] Comment on above: Order Comment: Reaso n for Exam Hyperlipidemia Performed By: #### B MP #### [address] Eosinophils/100 WBC (Bld) 0.9 % Normal . [facility] Comment on above: Order Comment: Reaso n for Exam Hyperlipidemia Performed By: #### B MP #### [address] Erythrocyte distribution width (RBC) [Ratio] 17.5 % High 12.0-14.8 [facility] Comment on above: Order Comment: Reaso n for Exam Hyperlipidemia Performed By: #### B MP #### [address] Hematocrit (Bld) [Volume fraction] 43.4 % Normal 38.8-50.0 [facility] Comment on above: Order Comment: Reaso n for Exam Hyperlipidemia Performed By: #### B MP #### [address] Hemoglobin (Bld) [Mass/Vol] 13.4 g/dL Normal 13.0-17.0 [facility] Comment on above: Order Comment: Reaso n for Exam Hyperlipidemia Performed By: #### B MP #### [address] Large Platelets Slight Normal [facility] Comment on above: Order Comment: Reaso n for Exam Hyperlipidemia Result Comment: PERF ORMED BY: [place] [address] PATHOLOGIST CLINICAL AUDIOLOGIST SIVAKUMAR PALACIOS M.D. Performed By: #### B MP #### [address] Lymphocytes (Bld) [#/Vol] 1.3 10*3/uL Normal 1.00-4.8 [facility] Comment on above: Order Comment: Reaso n for Exam Hyperlipidemia Performed By: #### B MP #### [address] Lymphocytes/100 WBC (Bld) 20.1 % Normal . [facility] Comment on above: Order Comment: Reaso n for Exam Hyperlipidemia Performed By: #### B MP #### [address] MCH (RBC) [Entitic mass] 26.4 pg Low 27.5-35.2 [facility] Comment on above: Order Comment: Reaso n for Exam Hyperlipidemia Performed By: #### B MP #### [place] [address] [place] MCV (RBC) [Entitic vol] 85.8 fL Normal 83.5-101 [facility] Comment on above: Order Comment: Reaso n for Exam Hyperlipidemia Performed By: #### B MP #### [facility] [address] Mean Corpuscular HGB Conc 30.8 g/dL Low 32.5-35.6 [facility] Comment on above: Order Comment: Reaso n for Exam Hyperlipidemia Performed By: #### B MP #### [facility] [address] [place] [address] [place] Monocytes (Bld) [#/Vol] 0.5 10*3/uL Normal 0.0-0.8 [facility] Comment on above: Order Comment: Reaso n for Exam Hyperlipidemia Performed By: #### B MP #### [facility] [address] [place] [address] [place] Monocytes/100 WBC (Bld) 7.5 % Normal . [facility] Comment on above: Order Comment: Reaso n for Exam Hyperlipidemia Performed By: #### B MP #### [place] [address] [place] Neutrophils (Bld) [#/Vol] 4.7 10*3/uL Normal 1.8-7.7 [facility] Comment on above: Order Comment: Reaso n for Exam Hyperlipidemia Performed By: #### B MP #### [place] [address] [place] Neutrophils/100 WBC (Bld) 71.1 % Normal . [facility] Comment on above: Order Comment: Reaso n for Exam Hyperlipidemia Performed By: #### B MP #### [facility] [address] [place] [address] [place] Nucleated RBC/100 WBC (Bld) [Ratio] 0.1 % Normal 0-0.5 [facility] Comment on above: Order Comment: Reaso n for Exam Hyperlipidemia Performed By: #### B MP #### [facility] [address] [place] [address] [place] Platelet Estimate Normal Normal Normal [facility] Comment on above: Order Comment: Reaso n for Exam Hyperlipidemia Performed By: #### B MP #### [address] Platelet mean volume (Bld) [Entitic vol] 11.8 fL High 6.6-10.1 [facility] Comment on above: Order Comment: Reaso n for Exam Hyperlipidemia Performed By: #### B MP #### [address] Platelets (Bld) [#/Vol] 163 10*3/uL Normal 150-450 [facility] Comment on above: Order Comment: Reaso n for Exam Hyperlipidemia Performed By: #### B MP #### [address] RBC (Bld) [#/Vol] 5.06 10*6/uL Normal 3.90-5.60 [facility] Comment on above: Order Comment: Reaso n for Exam Hyperlipidemia Performed By: #### B MP #### [address] WBC (Bld) [#/Vol] 6.6 10*3/uL Normal 4.5-11.0 [facility] Comment on above: Order Comment: Reaso n for Exam Hyperlipidemia Performed By: #### B MP #### [address] Thyroid Stimulating Hormoneo n 09-03-2022 TSH Qn 0.99 m[IU]/L Normal 0.45-5.33 [facility] Comment on above: Order Comment: Reaso n for Exam Hyperlipidemia Result Comment: PERF ORMED BY: [place] [address] PATHOLOGIST CLINICAL AUDIOLOGIST SIVAKUMAR PALACIOS M.D. Performed By: #### S CAN CBC, LIPID, CMP, A1C WTH eA, TSH3 #### [address] COVID-19on 02-18-2022 SARS-CoV-2 (COVID-19) RNA KELLIE+probe Ql (Unsp spec) Not detected Normal NOT DETECTED [facility] Comment on above: Result Comment: Rapi d NAAT: Negative results should be treated as presumptive and, if inconsistent with clinical signs and symptoms or necessary for patient management, should be tested with an alternative molecular assay. Negative results do not preclude SARS-CoV-2 infection and should not be used as the sole basis for patient management decisions. This test has been authorized by the FDA under an Emergency Use Authorization (EUA) for use by authorized laboratories. Fact sheet for Healthcare Providers: https://www.fda.gov/media/565968/download Fact sheet for Patients: https://www.fda.gov/media/631501/download METHODOLOGY: Isothermal Nucleic Acid Amplification Performed By: #### C OVPC #### [place] [address] COVID-19, Rapidon 02-18-2022 SARS-CoV-2 (COVID-19) RNA KELLIE+probe Ql (Unsp spec) Not detected NOT DETECTED [facility] Comment on above: Rapid NAAT: Negative results should be treated as presumptive and, if inconsistent with clinical signs and symptoms or necessary for patient management, should be tested with an alternative molecular assay. Negative results do not preclude SARS-CoV-2 infection and should not be used as the sole basis for patient management decisions. This test has been authorized by the FDA under an Emergency Use Authorization (EUA) for use by authorized laboratories. Fact sheet for Healthcare Providers: https://www.fda.gov/media/247628/download Fact sheet for Patients: https://www.fda.gov/media/682669/download METHODOLOGY: Isothermal Nucleic Acid Amplification Performed at [facility] [address] GLUCOSE POCon 02-18-2022 Glucose [Mass/Vol] 100 mg/dL Normal 70-108 [facility] Comment on above: Performed By: #### P OCGL #### [address] [address] Glucose [Mass/Vol] 107 mg/dL Normal 70-108 [facility] Comment on above: Performed By: #### P OCGL #### [place] [address] POCT glucoseon 02-18-2022 Glucose [Mass/Vol] 100 mg/dL 70 - 108 mg/dl [facility] Comment on above: Performed at [facility] [address] [place] [address] [facility] Glucose [Mass/Vol] 107 mg/dL 70 - 108 mg/dl [facility] Comment on above: Performed at [facility] [address] [place] [address] [facility] GLUCOSE POCon 02-17-2022 Glucose [Mass/Vol] 90 mg/dL Normal 70-108 [facility] Comment on above: Performed By: #### C BCND, PT, APTT, BMP, ANION, EGFR1 #### [facility] [address] [place] [address] Glucose [Mass/Vol] 88 mg/dL Normal 70-108 [facility] Comment on above: Performed By: #### P OCGL #### [facility] [address] [address] Glucose [Mass/Vol] 99 mg/dL Normal 70-108 [facility] Comment on above: Performed By: #### P OCGL #### [facility] [address] [place] [address] POCT glucoseon 02-17-2022 Glucose [Mass/Vol] 90 mg/dL 70 - 108 mg/dl [facility] Comment on above: Performed at [facility] [address] [place] [address] [facility] Glucose [Mass/Vol] 88 mg/dL 70 - 108 mg/dl [facility] Comment on above: Performed at [facility] [address] [place] [address] [facility] Glucose [Mass/Vol] 99 mg/dL 70 - 108 mg/dl [facility] Comment on above: Performed at [facility] [address] [place] [address] [facility] GLUCOSE POCon 02-16-2022 Glucose [Mass/Vol] 116 mg/dL High 70-108 [facility] Comment on above: Performed By: #### P OCGL ####[facility] [address] [place] [address] Glucose [Mass/Vol] 121 mg/dL High 70-108 [facility] Comment on above: Performed By: #### P OCGL #### [facility] [address] [place] [address] Glucose [Mass/Vol] 89 mg/dL Normal 70-108 [facility] Comment on above: Performed By: #### C BCND, PT, APTT, BMP, ANION, EGFR1 #### [facility] [address] [place] [address] Glucose [Mass/Vol] 95 mg/dL Normal 70-108 [facility] Comment on above: Performed By: #### C BCND, PT, APTT, BMP, ANION, EGFR1 #### [facility] [address] [place] [address] Glucose [Mass/Vol] 85 mg/dL Normal 70-108 [facility] Comment on above: Performed By: #### C BCND, PT, APTT, BMP, ANION, EGFR1 #### [facility] [address] [place] [address] POCT Glucoseon 02-16-2022 Glucose [Mass/Vol] 121 mg/dL High 70 - 108 mg/dl [facility] Comment on above: Performed at [facility] [address] [place] [address] Interpretation and review of laboratory results Abnormal [facility] POCT glucoseon 02-16-2022 Glucose [Mass/Vol] 116 mg/dL High 70 - 108 mg/dl [facility] Comment on above: Performed at [facility] [address] [place] [address] Interpretation and review of laboratory results Abnormal [facility] Glucose [Mass/Vol] 89 mg/dL 70 - 108 mg/dl [facility] Comment on above: Performed at [facility] [address] [place] [id number] [place] [address] Glucose [Mass/Vol] 95 mg/dL 70 - 108 mg/dl [facility] Comment on above: Performed at [facility] [address] [place] [id number] [place] [address] Glucose [Mass/Vol] 85 mg/dL 70 - 108 mg/dl [facility] Comment on above: Performed at [facility] [address] [place] [address] ANION GAPon 02-15-2022 Anion gap [Moles/Vol] 8.0 mmol/L Normal 8.0-16.0 [facility] Comment on above: Result Comment: ANIO N GAP = Sodium -(Chloride + CO2) Performed By: #### C BCND, BMP, ANION, EGFR1 ####[facility] [address] [place] [address] Anion Gapon 02-15-2022 Anion gap [Moles/Vol] 8.0 mmol/L 8.0 - 16.0 meq/L [facility] Comment on above: ANION GAP = Sodium - (Chloride + CO2) Performed at [facility] [address] [place] [address] BASIC METABOL PANELon 2021 Calcium [Mass/Vol] 8.1 mg/dL Low 8.5-10.5 [facility] Comment on above: Performed By: #### P OCGL #### [address] [address] Chloride [Moles/Vol] 105 mmol/L Normal 98-111 [facility] Comment on above: Performed By: #### P OCGL #### [facility] [address] [place] [address] CO2 [Moles/Vol] 25 mmol/L Normal 23-33 [facility] Comment on above: Performed By: #### P OCGL #### [facility] [address] [place] [address] Creatinine [Mass/Vol] 1.0 mg/dL Normal 0.4-1.2 [facility] Comment on above: Performed By: #### P OCGL #### [facility] [address] [place] [address] Glucose [Mass/Vol] 101 mg/dL Normal 70-108 [facility] Comment on above: Performed By: #### P OCGL #### [facility] [address] [place] [address] Potassium [Moles/Vol] 3.9 mmol/L Normal 3.5-5.2 [facility] Comment on above: Performed By: #### P OCGL #### [facility] [address] [place] [address] Sodium [Moles/Vol] 138 mmol/L Normal 135-145 [facility] Comment on above: Performed By: #### P OCGL #### [facility] [address] [place] [address] Urea nitrogen [Mass/Vol] 19 mg/dL Normal 7-22 [facility] Comment on above: Performed By: #### P OCGL #### [facility] [address] [place] [address] Basic Metabolic Panelon 01-19 Calcium [Mass/Vol] 8.1 mg/dL Low 8.5 - 10. 5 mg/dL [facility] Comment on above: Performed at [facility] [address] [place] [address] Chloride [Moles/Vol] 105 mmol/L 98 - 111 meq/L [facility] CO2 [Moles/Vol] 25 mmol/L 23 - 33 [facility]q/L [facility] Creat[facility] [Mass/Vol] 1 mg/dL 0.4 - 1.2 mg/dL [facility] Glucose [Mass/Vol] 101 mg/dL 70 - 108 mg/dL [facility] Potassium [Moles/Vol] 3.9 mmol/L 3.5 - 5.2 meq/L [facility] Sodium [Moles/Vol] 138 mmol/L 135 - 145 meq/L [facility] Urea nitrogen (BldV) [Mass/Vol] 19 mg/dL 7 - 22 mg/dL [facility] CBCon 02-15-2022 Erythrocyte distribution width (RBC) [Ratio] 13.3 % 11.5 - 14.5 % [facility] Erythrocyte distribution width (RBC) [Ratio] 46.9 fL High 35.0 - 45.0 fL [facility] Hematocrit (Bld) [Volume fraction] 30.1 % Low 42.0 - 52.0 % [facility] Hemoglobin.gastroi ntestinal spec 1 Ql (Stl) 9.5 Low [facility] Interpretation and review of laboratory results Abnormal [facility] MCH (RBC) [Entitic mass] 30.4 pg 26.0 - 33.0 pg [facility] MCHC (RBC) [Mass/Vol] 31.6 g/dL Low [facility] MCV (RBC) [Entitic vol] 96.2 fL High 80.0 - 94.0 fL [facility] Platelet mean volume (Bld) [Entitic vol] 11.7 fL 9.4 - 12.4 fL [facility] Comment on above: Performed at [facility] [address] [place] [address] Platelets (Bld) [#/Vol] 159 10*3/uL [facility] RBC (Bld) [#/Vol] 3.13 10*6/uL [facility] WBC (Bld) [#/Vol] 4.3 10*3/uL [facility] CBC NO DIFFERENTIALon 2021 Erythrocyte distribution width (RBC) [Ratio] 13.3 % Normal 11.5-14.5 [facility] Comment on above: Performed By: #### P OCGL #### [address] [address] Hematocrit (Bld) [Volume fraction] 30.1 % Low 42.0-52.0 [facility] Comment on above: Performed By: #### P OCGL #### [address] [address] Hemoglobin (Bld) [Mass/Vol] 9.5 g/dL Low 14.0-18.0 [facility] Comment on above: Performed By: #### P OCGL #### [address] [address] MCH (RBC) [Entitic mass] 30.4 pg Normal 26.0-33.0 [facility] Comment on above: Performed By: #### P OCGL #### [address] [address] MCHC (RBC) [Mass/Vol] 31.6 g/dL Low 32.2-35.5 [facility] Comment on above: Performed By: #### P OCGL #### [address] [address] MCV (RBC) [Entitic vol] 96.2 fL High 80.0-94.0 [facility] Comment on above: Performed By: #### P OCGL #### [facility] [address] [place] [address] PLATELET 159 thou/mm3 Normal 130-400 [facility] Comment on above: Performed By: #### P OCGL #### [facility] [address] [place] [address] Platelet mean volume (Bld) [Entitic vol] 11.7 fL Normal 9.4-12.4 [facility] Comment on above: Performed By: #### P OCGL #### [facility] [address] [place] [address] RBC 3.13 mill/mm3 Low 4.70-6.10 [facility] Comment on above: Performed By: #### P OCGL #### [facility] [address] [place] [address] RDW-SD 46.9 fL High 35.0-45.0 [facility] Comment on above: Performed By: #### P OCGL #### [facility] [address] [place] [address] WBC 4.3 thou/mm3 Low 4.8-10.8 [facility] Comment on above: Performed By: #### P OCGL #### [facility] [address] [place] [address] GFR, ESTIMATEDon 02-15-2022 GFR/1.73 sq M.predicted MDRD (S/P/Bld) [Vol rate/Area] 75 mL/min/{1.73_m2} Abnormal [facility] Comment on above: Result Comment: Lilliam crum Description GFR, ml/min/1.73 m2 - At increased risk > or = 60 (with chronic kidney disease risk factors) 1 Normal or increased GFR > or = 90 2 Mildly or decreased GFR 60 - 89 3 Moderately decreased GFR 30 - 59 4 Severely decreased GFR 15 - 29 5 Kidney failure <15 (or dialysis) Estimated GFR calculated using abbreviated MDRD formula as recommended by [employer]. Calculation based upon serum creatinine and adjusted for age, gender & race. Alana. Internal Med., Vol. 139 (2) pg 137-147. Performed By: #### C BCND, BMP, ANION, EGFR1 ####[facility] [employer] [address] [place] [address] GLUCOSE POCon 02-15-2022 Glucose [Mass/Vol] 85 mg/dL Normal 70-108 [facility] Comment on above: Performed By: #### P OCGL #### [facility] [address] [place] [address] Glucose [Mass/Vol] 98 mg/dL Normal 70-108 [facility] Comment on above: Performed By: #### C BCND, PT, APTT, BMP, ANION, EGFR1 #### [facility] [address] [place] [address] Glucose [Mass/Vol] 101 mg/dL Normal 70-108 [facility] Comment on above: Performed By: #### P OCGL ####[facility] [address] [place] [address] Glucose [Mass/Vol] 89 mg/dL Normal 70-108 [facility] Comment on above: Performed By: #### P OCGL #### [facility] [address] [place] [address] Glomerular Filtration Rate, Estimatedon 02-15-2022 GFR/1.73 sq M.predicted MDRD (S/P/Bld) [Vol rate/Area] 75 mL/min/{1.73_m2} Abnormal ml/min/1.7 3m2 [facility] Comment on above: Stage Description GF R, ml/min/1.73 m2 - At increased risk > or = 60 (with chronic kidney disease risk factors) 1 Normal or increased GFR > or = 90 2 Mildly or decreased GFR 60 - 89 3 Moderately decreased GFR 30 - 59 4 Severely decreased GFR 15 - 29 5 Kidney failure <15 (or dialysis) Estimated GFR calculated using abbreviated MDRD formula as recommended by National Kidney Foundation. Calculation based upon serum creatinine and adjusted for age, gender & race. Alana. Internal Med., Vol. 139 (2) pg 137-147. Performed at [facility] [address] [place] [address] No Panel Informationon 02-15 Interpretation and review of laboratory results [facility] POCT glucoseon 02-15-2022 Glucose [Mass/Vol] 85 mg/dL 70 - 108 mg/dl [facility] [employer] Comment on above: Performed at [facility] [address] [place], [place] [id number] [place] [address] [employer] Glucose [Mass/Vol] 98 mg/dL 70 - 108 mg/dl [facility] [employer] Comment on above: Performed at [facility] [address] [place] [address] [facility] Glucose [Mass/Vol] 101 mg/dL 70 - 108 mg/dl [facility] Comment on above: Performed at [facility] [address] [place] [id number] [place] [address] Glucose [Mass/Vol] 89 mg/dL 70 - 108 mg/dl [facility] Comment on above: Performed at [facility] [address] [place] [address] [facility] GLUCOSE POCon 02-14-2022 Glucose [Mass/Vol] 90 mg/dL Normal 70-108 [facility] Comment on above: Performed By: #### C BCND, PT, APTT, BMP, ANION, EGFR1 #### [address] [address] Glucose [Mass/Vol] 100 mg/dL Normal 70-108 [facility] Comment on above: Performed By: #### C BCND, PT, APTT, BMP, ANION, EGFR1 #### [address] [address] Glucose [Mass/Vol] 86 mg/dL Normal 70-108 [facility] Comment on above: Performed By: #### C BCND, PT, APTT, BMP, ANION, EGFR1 #### [facility] [address] [place] [address] Glucose [Mass/Vol] 94 mg/dL Normal 70-108 [facility] Comment on above: Performed By: #### P OCGL ####[facility] [employer] [address] [place] [address] Glucose [Mass/Vol] 79 mg/dL Normal 70-108 [facility] Comment on above: Performed at [facility] [address] [place] [address] Performed By: #### P OCGL #### [facility] [address] [address] No Panel Informationon 02-14 [facility] POCT glucoseon 02-14-2022 Glucose [Mass/Vol] 90 mg/dL 70 - 108 mg/dl [facility] Comment on above: Performed at [facility] [address] [place] [address] [facility] Glucose [Mass/Vol] 100 mg/dL 70 - 108 mg/dl [facility] Comment on above: Performed at [facility] [address] [place] [address] [facility] Glucose [Mass/Vol] 86 mg/dL 70 - 108 mg/dl [facility] Comment on above: Performed at [facility] [address] [place] [id number] [place] [address] Health Glucose [Mass/Vol] 94 mg/dL 70 - 108 mg/dl [facility] Comment on above: Performed at [facility] [address] [place] [address] GLUCOSE POCon 02-13-2022 Glucose [Mass/Vol] 96 mg/dL Normal 70-108 [facility] Comment on above: Performed By: #### P OCGL #### [address] [address] Glucose [Mass/Vol] 85 mg/dL Normal 70-108 [facility] Comment on above: Performed By: #### C BCND, PT, APTT, BMP, ANION, EGFR1 #### [address] [address] Glucose [Mass/Vol] 95 mg/dL Normal 70-108 [facility] Comment on above: Performed By: #### C BCND, PT, APTT, BMP, ANION, EGFR1 #### [address] [address] Glucose [Mass/Vol] 82 mg/dL Normal 70-108 [facility] Comment on above: Performed By: #### C BCND, PT, APTT, BMP, ANION, EGFR1 #### [facility] [address] [place] [address] POCT glucoseon 02-13-2022 Glucose [Mass/Vol] 96 mg/dL 70 - 108 mg/dl [facility] Comment on above: Performed at [facility] [address] [place] [address] [facility] Glucose [Mass/Vol] 85 mg/dL 70 - 108 mg/dl [facility] Comment on above: Performed at [facility] [address] [place] [id number] [place] [address] Glucose [Mass/Vol] 95 mg/dL 70 - 108 mg/dl [facility] Comment on above: Performed at [facility] [address] [place] [address] Glucose [Mass/Vol] 82 mg/dL 70 - 108 mg/dl [facility] Comment on above: Performed at [facility] [address] [place] [address] [facility] ANION GAPon 02-12-2022 Anion gap [Moles/Vol] 9.0 mmol/L Normal 8.0-16.0 [facility] Comment on above: Result Comment: ANIO N GAP = Sodium -(Chloride + CO2) Performed By: #### P OCGL #### [facility] [address] [place] [address] Anion Gapon 02-12-2022 Anion gap [Moles/Vol] 9.0 mmol/L 8.0 - 16.0 meq/L [facility] Comment on above: ANION GAP = Sodium - (Chloride + CO2) Performed at [facility] [address] [place] [address] BASIC METABOL PANELon 2021 Calcium [Mass/Vol] 8.2 mg/dL Low 8.5-10.5 [facility] Comment on above: Performed By: #### P OCGL #### [facility] [address] [place] [address] Chloride [Moles/Vol] 105 mmol/L Normal 98-111 [facility] Comment on above: Performed By: #### P OCGL #### [facility] [address] [place] [address] CO2 [Moles/Vol] 24 mmol/L Normal 23-33 [facility] Comment on above: Performed By: #### P OCGL #### [facility] [address] [place] [address] Creatinine [Mass/Vol] 0.9 mg/dL Normal 0.4-1.2 [facility] Comment on above: Performed By: #### P OCGL #### [facility] [address] [place] [address] Glucose [Mass/Vol] 66 mg/dL Low 70-108 [facility] Comment on above: Performed By: #### P OCGL #### [facility] [address] [place] [address] Potassium [Moles/Vol] 3.9 mmol/L Normal 3.5-5.2 [facility] Comment on above: Performed By: #### P OCGL #### [facility] [address] [place] [address] Sodium [Moles/Vol] 138 mmol/L Normal 135-145 [facility] Comment on above: Performed By: #### P OCGL #### [facility] [address] [place] [address] Urea nitrogen [Mass/Vol] 17 mg/dL Normal 7-22 [facility] Comment on above: Performed By: #### P OCGL #### [facility] [address] [place] [address] Basic Metabolic Panelon 01-18 Calcium [Mass/Vol] 8.2 mg/dL Low 8.5 - 10. 5 mg/dL [facility] [employer] Comment on above: Performed at [facility] [address] [place] [address] Chloride [Moles/Vol] 105 mmol/L 98 - 111 meq/L [facility] [employer] CO2 [Moles/Vol] 24 mmol/L 23 - 33 meq/L [facility] Creatinine [Mass/Vol] 0.9 mg/dL 0.4 - 1.2 mg/dL [facility] Glucose [Mass/Vol] 66 mg/dL Low 70 - 108 mg/dL [facility] Potassium [Moles/Vol] 3.9 mmol/L 3.5 - 5.2 meq/L [facility] Sodium [Moles/Vol] 138 mmol/L 135 - 145 meq/L [facility] Urea nitrogen (BldV) [Mass/Vol] 17 mg/dL 7 - 22 mg/dL [facility] CBCon 02-12-2022 Erythrocyte distribution width (RBC) [Ratio] 13.8 % 11.5 - 14.5 % [facility] Erythrocyte distribution width (RBC) [Ratio] 49.3 fL High 35.0 - 45.0 fL [facility] Hematocrit (Bld) [Volume fraction] 32.0 % Low 42.0 - 52.0 % [facility] Hemoglobin.gastroi ntestinal spec 1 Ql (Stl) 9.8 Low [facility] Interpretation and review of laboratory results Abnormal [facility] MCH (RBC) [Entitic mass] 29.8 pg 26.0 - 33.0 pg [facility] MCHC (RBC) [Mass/Vol] 30.6 g/dL Low [facility] MCV (RBC) [Entitic vol] 97.3 fL High 80.0 - 94.0 fL [facility] Platelet mean volume (Bld) [Entitic vol] 12.3 fL 9.4 - 12.4 fL [facility] Comment on above: Performed at [facility] [address] [place] [address] Platelets (Bld) [#/Vol] 142 10*3/uL [facility] RBC (Bld) [#/Vol] 3.29 10*6/uL Low [facility] WBC (Bld) [#/Vol] 5.1 10*3/uL [facility] CBC NO DIFFERENTIALon 2021 Erythrocyte distribution width (RBC) [Ratio] 13.8 % Normal 11.5-14.5 [facility] Comment on above: Performed By: #### P OCGL #### [address] [address] Hematocrit (Bld) [Volume fraction] 32.0 % Low 42.0-52.0 [facility] Comment on above: Performed By: #### P OCGL #### [facility] [employer] [address] [address] Hemoglobin (Bld) [Mass/Vol] 9.8 g/dL Low 14.0-18.0 [facility] Comment on above: Performed By: #### P OCGL #### [facility] [address] [place] [address] MCH (RBC) [Entitic mass] 29.8 pg Normal 26.0-33.0 [facility] Comment on above: Performed By: #### P OCGL #### [facility] [address] [place] [address] MCHC (RBC) [Mass/Vol] 30.6 g/dL Low 32.2-35.5 [facility] Comment on above: Performed By: #### P OCGL #### [facility] [employer] [address] [place] [address] MCV (RBC) [Entitic vol] 97.3 fL High 80.0-94.0 [facility] Comment on above: Performed By: #### P OCGL #### [facility] [address] [place] [address] PLATELET 142 thou/mm3 Normal 130-400 [facility] Comment on above: Performed By: #### P OCGL #### [facility] [address] [place] [address] Platelet mean volume (Bld) [Entitic vol] 12.3 fL Normal 9.4-12.4 [facility] Comment on above: Performed By: #### P OCGL #### [facility] [address] [place] [address] RBC 3.29 mill/mm3 Low 4.70-6.10 [facility] Comment on above: Performed By: #### P OCGL #### [facility] [employer] [facility] [address] [address] RDW-SD 49.3 fL High 35.0-45.0 [facility] Comment on above: Performed By: #### P OCGL #### [facility] [address] [place] [address] WBC 5.1 thou/mm3 Normal 4.8-10.8 [facility] Comment on above: Performed By: #### P OCGL #### [facility] [address] [address] GFR, ESTIMATEDon 02-12-2022 GFR/1.73 sq M.predicted MDRD (S/P/Bld) [Vol rate/Area] 85 mL/min/{1.73_m2} Abnormal [facility] Comment on above: Result Comment: [employer] skyla Description GFR, ml/min/1.73 m2 - At increased risk > or = 60 (with chronic kidney disease risk factors) 1 Normal or increased GFR > or = 90 2 Mildly or decreased GFR 60 - 89 3 Moderately decreased GFR 30 - 59 4 Severely decreased GFR 15 - 29 5 Kidney failure <15 (or dialysis) Estimated GFR calculated using abbreviated MDRD formula as recommended by National Kidney Foundation. Calculation based upon serum creatinine and adjusted for age, gender & race. Alana. Internal Med., Vol. 139 (2) pg 137-147. Performed By: #### P OCGL #### [facility] [address] [place] [address] GLUCOSE POCon 02-12-2022 Glucose [Mass/Vol] 95 mg/dL Normal 70-108 [facility] Comment on above: Performed By: #### P OCGL #### [facility] [address] [place] [address] Glucose [Mass/Vol] 84 mg/dL Normal 70-108 [facility] Comment on above: Performed By: #### C BCND, PT, APTT, BMP, ANION, EGFR1 #### [facility] [address] [place] [address] Glucose [Mass/Vol] 86 mg/dL Normal 70-108 [facility] Comment on above: Performed By: #### P OCGL ####[facility] [employer] [address] [place] [address] Glucose [Mass/Vol] 90 mg/dL Normal 70-108 [facility] Comment on above: Performed By: #### P OCGL ####[facility] [employer] [address] [place] [address] Glomerular Filtration Rate, Estimatedon 02-12-2022 GFR/1.73 sq M.predicted MDRD (S/P/Bld) [Vol rate/Area] 85 mL/min/{1.73_m2} Abnormal ml/min/1.[address] [place] [address] Comment on above: Stage Description GF R, ml/min/1.73 m2 - At increased risk > or = 60 (with chronic kidney disease risk factors) 1 Normal or increased GFR > or = 90 2 Mildly or decreased GFR 60 - 89 3 Moderately decreased GFR 30 - 59 4 Severely decreased GFR 15 - 29 5 Kidney failure <15 (or dialysis) Estimated GFR calculated using abbreviated MDRD formula as recommended by National Kidney Foundation. Calculation based upon serum creatinine and adjusted for age, gender & race. Alana. Internal Med., Vol. 139 (2) pg 137-147. Performed at [facility] [address] [place] [address] No Panel Informationon 02-12 Interpretation and review of laboratory results Abnormal [facility] POCT glucoseon 04-27-2022 Glucose [Mass/Vol] 95 mg/dL 70 - 108 mg/dl [facility] Comment on above: Performed at [facility] [address] [place] [address] Glucose [Mass/Vol] 84 mg/dL 70 - 108 mg/dl [facility] Comment on above: Performed at [facility] [address] [place] [address] Glucose [Mass/Vol] 86 mg/dL 70 - 108 mg/dl [facility] Comment on above: Performed at [facility] [address] [place] [address] Glucose [Mass/Vol] 90 mg/dL 70 - 108 mg/dl [facility] Comment on above: Performed at [facility] [address] [place] [address] CBCon 02-11-2022 Erythrocyte distribution width (RBC) [Ratio] 13.7 % 11.5 - 14.5 % [facility] Erythrocyte distribution width (RBC) [Ratio] 48.8 fL High 35.0 - 45.0 fL [facility] Hematocrit (Bld) [Volume fraction] 31.5 % Low 42.0 - 52.0 % [facility] Hemoglobin.gastroi ntestinal spec 1 Ql (Stl) 9.8 Low [facility] Interpretation and review of laboratory results Abnormal [facility] MCH (RBC) [Entitic mass] 30.2 pg 26.0 - 33.0 pg [facility] MCHC (RBC) [Mass/Vol] 31.1 g/dL Low [facility] MCV (RBC) [Entitic vol] 97.2 fL High 80.0 - 94.0 fL [facility] Platelet mean volume (Bld) [Entitic vol] 12.8 fL High 9.4 - 12.4 fL [facility] Comment on above: Performed at [facility] [address] [place] [address] Platelets (Bld) [#/Vol] 122 10*3/uL Low [facility] RBC (Bld) [#/Vol] 3.24 10*6/uL Low [facility] WBC (Bld) [#/Vol] 5.7 10*3/uL [facility] CBC NO DIFFERENTIALon 2021 Erythrocyte distribution width (RBC) [Ratio] 13.7 % Normal 11.5-14.5 [facility] Comment on above: Performed By: #### P OCGL #### [address] [address] Hematocrit (Bld) [Volume fraction] 31.5 % Low 42.0-52.0 [facility] Comment on above: Performed By: #### P OCGL #### [facility] [address] [place] [address] Hemoglobin (Bld) [Mass/Vol] 9.8 g/dL Low 14.0-18.0 [facility] Comment on above: Performed By: #### P OCGL #### [address] [address] MCH (RBC) [Entitic mass] 30.2 pg Normal 26.0-33.0 [facility] Comment on above: Performed By: #### P OCGL #### [address] [address] MCHC (RBC) [Mass/Vol] 31.1 g/dL Low 32.2-35.5 [facility] Comment on above: Performed By: #### P OCGL #### [address] [address] MCV (RBC) [Entitic vol] 97.2 fL High 80.0-94.0 [facility] Comment on above: Performed By: #### P OCGL #### [address] [address] PLATELET 122 thou/mm3 Low 130-400 [facility] Comment on above: Performed By: #### P OCGL #### [address] [address] Platelet mean volume (Bld) [Entitic vol] 12.8 fL High 9.4-12.4 [facility] Comment on above: Performed By: #### P OCGL #### [facility] [address] [place] [address] RBC 3.24 mill/mm3 Low 4.70-6.10 [facility] Comment on above: Performed By: #### P OCGL #### [address] [address] RDW-SD 48.8 fL High 35.0-45.0 [facility] Comment on above: Performed By: #### P OCGL #### [address] [address] WBC 5.7 thou/mm3 Normal 4.8-10.8 [facility] Comment on above: Performed By: #### P OCGL #### [address] [address] GLUCOSE POCon 02-11-2022 Glucose [Mass/Vol] 116 mg/dL High 70-108 [facility] Comment on above: Performed By: #### P OCGL #### [address] [address] Glucose [Mass/Vol] 87 mg/dL Normal 70-108 [facility] Comment on above: Performed By: #### C BCND, PT, APTT, BMP, ANION, EGFR1 #### [address] [address] Glucose [Mass/Vol] 90 mg/dL Normal 70-108 [facility] Comment on above: Performed By: #### P OCGL #### [address] [address] Glucose [Mass/Vol] 112 mg/dL High 70-108 [facility] Comment on above: Performed By: #### C BCND, PT, APTT, BMP, ANION, EGFR1 #### [address] [address] POCT Glucoseon 02-11-2022 Glucose [Mass/Vol] 87 mg/dL 70 - 108 mg/dl [facility] Comment on above: Performed at [facility] [address] [place] [id number] [place] [address] Glucose [Mass/Vol] 90 mg/dL 70 - 108 mg/dl [facility] Comment on above: Performed at [facility] [address] [place] [address] Glucose [Mass/Vol] 112 mg/dL High 70 - 108 mg/dl [facility] Comment on above: Performed at [facility] [address] [place] [address] Interpretation and review of laboratory results Abnormal [facility] POCT glucoseon 02-11-2022 Glucose [Mass/Vol] 116 mg/dL High 70 - 108 mg/dl [facility] Comment on above: Performed at [facility] [address] [place] [address] Interpretation and review of laboratory results Abnormal [facility] VITAMIN B12 FOLATEon 022 Cobalamin (Vitamin B12) [Mass/Vol] 386 pg/mL Normal 211-911 [facility] Comment on above: Performed By: #### C BCND, PT, APTT, BMP, ANION, EGFR1 #### [address] [address] FOLATE 7.5 ng/mL Normal 4.8-24.2 [facility] Comment on above: Performed By: #### C BCND, PT, APTT, BMP, ANION, EGFR1 #### [place] [address] Vitamin B12 & Folateon 02-11 Cobalamin (Vitamin B12) [Mass/Vol] 386 pg/mL 211 - 911 pg/mL [facility] Folate 7.5 ng/mL 4.8 - 24.2 ng/mL [facility] Comment on above: Performed at [facility] [address] [place] [address] CORTISOLon 02-10-2022 CORTISOL SPECIMEN 60 Minute Normal [facility] Comment on above: Performed By: #### P OCGL #### [place] [address] ECHO Complete 2D W Doppler W Coloron 02-10-2022 Transthoracic Echocardiography Report (TTE) Demographics Patient Name SUNNY Cox Gender Male MR # [id number] Race Ethnicity Room Number 0025 Date of Study 02/10/2022 Number Date of 1960 Referring Physician Bala Schrader MD Age 61 year(s) [facility] [employer] [facility] Prince HILDA Interpreting Beata Leahy MD Physician Procedure Type of Study TTE procedure:ECHOCARDIOGRAM COMPLETE 2D W DOPPLER W COLOR. Procedure Date Date: 02/10/2022 Start: 11:00 AM Study Location: Bedside Technical Quality: Limited visualization due to restricted mobility. Indications:Hypotension. Additional Medical History:Diabetic, hyperlipidemia, hypotension, sleep apnea, dizziness Patient Status: Routine Height: 70 inches Weight: 240.01 pounds BSA: 2.26 m^2 BMI: 34.44 kg/m^2 BP: 112/74 mmHg Conclusions Summary Normal left ventricle size and systolic function. Ejection fraction was estimated at 55-60%. There were no regional left ventricular wall motion abnormalities and wall thickness was within normal limits. Mild tricuspid regurgitation. Mild mitral regurgitation. Signature ------ ------ Findings Mitral Valve The mitral valve structure was normal with normal leaflet separation. DOPPLER: The transmitral velocity was within the normal range with no evidence for mitral stenosis. There was evidence of Mild mitral regurgitation. Aortic Valve The aortic valve was trileaflet with normal thickness and cuspal separation. DOPPLER: Transaortic velocity was within the normal range with no evidence of aortic stenosis. There was no evidence of aortic regurgitation. Tricuspid Valve The tricuspid valve structure was normal with normal leaflet separation. DOPPLER: There was no evidence of tricuspid stenosis. There was evidence of Mild tricuspid regurgitation. Pulmonic Valve The pulmonic valve leaflets exhibited normal thickness, no calcification, and normal cuspal separation. DOPPLER: The transpulmonic velocity was within the normal range with no evidence for regurgitation. Left Atrium Left atrial size was normal. Left Ventricle Normal left ventricle size and systolic function. Ejection fraction was estimated at 55-60%. There were no regional left ventricular wall motion abnormalities and wall thickness was within normal limits. Right Atrium Right atrial size was normal. Right Ventricle The right ventricular size was normal with normal systolic function and wall thickness. Pericardial Effusion The pericardium was normal in appearance with no evidence of a pericardial effusion. Pleural Effusion No evidence of pleural effusion. Aorta / Great Vessels -Aortic root dimension within normal limits. -The Pulmonary artery is within normal limits. -IVC size is within normal limits with normal respiratory phasic changes. M-Mode/2D Measurements & Calculations LV Diastolic LV Systolic Dimension: AV Cusp Separation: 2.5 cmLA Dimension: 5.1 3.7 cm Dimension: 3.7 cmAO Root cm LV Volume Diastolic: 124 Dimension: 3.8 cmLA Area: 16.6 LV FS:27.5 % ml cm^2 LV PW LV Volume Systolic: 58.1 Diastolic: 0.9 ml cm LV EDV/LV EDV Index: 124 Septum ml/55 m^2LV ESV/LV ESV RV Diastolic Dimension: 2.4 cm Diastolic: 1 Index: 58.1 ml/26 m^2 cm EF Calculated: 53.2 % LA/Aorta: 0.97 Ascending Aorta: 3.5 cm LA volume/Index: 37.4 ml /17m^2 Doppler Measurements & Calculations MV Peak E-Wave: 96.3 cm/s AV Peak Velocity: 140 LVOT Peak Velocity: 110 MV Peak A-Wave: 89.7 cm/s cm/s cm/s MV E/A Ratio: 1.07 AV Peak Gradient: 7.84 LVOT Peak Gradient: 5 MV Peak Gradient: 3.71 mmHg mmHg mmHg TV Peak E-Wave: 51.4 MV Deceleration Time: 263 cm/s msec TV Peak A-Wave: 38.8 MV P1/2t: 77 msec IVRT: 87 msec cm/s MVA by PHT:2.86 cm^2 TV Peak Gradient: 1.06 MV E' Septal Velocity: 9.9 AV DVI (Vmax):0.79 mmHg cm/s TR Velocity:251 cm/s MV A' Septal Velocity: (more content not included)... [facility] STR CPACS Armond Cota MD - 02/10/2022 Transthoracic Echocardiography Report (TTE) Demographics Patient Name SUNNY Cox Gender Male MR # [id number] Race Ethnicity Room Number 0025 Date of Study 02/10/2022 Number Date of 1960 Referring Physician Bala Schrader MD Age 61 year(s) Control And Recovery Combat Rescue Lyn Prince, [facility] Interpreting Beata Leahy MD Physician Procedure Type of Study TTE procedure:ECHOCARDIOGRAM COMPLETE 2D W DOPPLER W COLOR. Procedure Date Date: 02/10/2022 Start: 11:00 AM Study Location: Bedside Technical Quality: Limited visualization due to restricted mobility. Indications:Hypotension. Additional Medical History:Diabetic, hyperlipidemia, hypotension, sleep apnea, dizziness Patient Status: Routine Height: 70 inches Weight: 240.01 pounds BSA: 2.26 m^2 BMI: 34.44 kg/m^2 BP: 112/74 mmHg Conclusions Summary Normal left ventricle size and systolic function. Ejection fraction was estimated at 55-60%. There were no regional left ventricular wall motion abnormalities and wall thickness was within normal limits. Mild tricuspid regurgitation. Mild mitral regurgitation. Signature ------ ------ Findings Mitral Valve The mitral valve structure was normal with normal leaflet separation. DOPPLER: The transmitral velocity was within the normal range with no evidence for mitral stenosis. There was evidence of Mild mitral regurgitation. Aortic Valve The aortic valve was trileaflet with normal thickness and cuspal separation. DOPPLER: Transaortic velocity was within the normal range with no evidence of aortic stenosis. There was no evidence of aortic regurgitation. Tricuspid Valve The tricuspid valve structure was normal with normal leaflet separation. DOPPLER: There was no evidence of tricuspid stenosis. There was evidence of Mild tricuspid regurgitation. Pulmonic Valve The pulmonic valve leaflets exhibited normal thickness, no calcification, and normal cuspal separation. DOPPLER: The transpulmonic velocity was within the normal range with no evidence for regurgitation. Left Atrium Left atrial size was normal. Left Ventricle Normal left ventricle size and systolic function. Ejection fraction was estimated at 55-60%. There were no regional left ventricular wall motion abnormalities and wall thickness was within normal limits. Right Atrium Right atrial size was normal. Right Ventricle The right ventricular size was normal with normal systolic function and wall thickness. Pericardial Effusion The pericardium was normal in appearance with no evidence of a pericardial effusion. Pleural Effusion No evidence of pleural effusion. Aorta / Great Vessels -Aortic root dimension within normal limits. -The Pulmonary artery is within normal limits. -IVC size is within normal limits with normal respiratory phasic changes. M-Mode/2D Measurements & Calculations LV Diastolic LV Systolic Dimension: AV Cusp Separation: 2.5 cmLA Dimension: 5.1 3.7 cm Dimension: 3.7 cmAO Root cm LV Volume Diastolic: 124 Dimension: 3.8 cmLA Area: 16.6 LV FS:27.5 % ml cm^2 LV PW LV Volume Systolic: 58.1 Diastolic: 0.9 ml cm LV EDV/LV EDV Index: 124 Septum ml/55 m^2LV ESV/LV ESV RV Diastolic Dimension: 2.4 cm Diastolic: 1 Index: 58.1 ml/26 m^2 cm EF Calculated: 53.2 % LA/Aorta: 0.97 Ascending Aorta: 3.5 cm LA volume/Index: 37.4 ml /17m^2 Doppler Measurements & Calculations MV Peak E-Wave: 96.3 cm/s AV Peak Velocity: 140 LVOT Peak Velocity: 110 MV Peak A-Wave: 89.7 cm/s cm/s cm/s MV E/A Ratio: 1.07 AV Peak Gradient: 7.84 LVOT Peak Gradient: 5 MV Peak Gradient: 3.71 mmHg mmHg mmHg TV Peak E-Wave: 51.4 MV Deceleration Time: 263 cm/s msec TV Peak A-Wave: 38.8 MV P1/2t: 77 msec IVRT: 87 msec cm/s MVA by PHT:2.86 cm^2 TV Peak Gradient: 1.06 MV E' Septal Velocity: 9.9 AV DVI (Vmax):0.79 mmHg cm/s TR Velocity:251 cm/s MV A' Septal Velocity: TR Gradient:25.2 mmHg 11.6 cm/s PV Peak Velocity: 91.3 MV E' Lateral Velocity: cm/s 13.6 cm/s PV Peak Gradient: 3.33 MV A' Lateral Velocity: mmHg 9.5 cm/s E/E' septal: 9.73 E/E' lateral: 7.08 MR Velocity: 463 cm/s [id number] [employer] Phone: ECHO Complete 2D W Doppler W ColorOrdered By: Armond Cota on 02-10-2022 [employer] Phone: ECHOCARDIOGRAM COMPLETE 2D W DOPPLER W COLORon 02-10-2022 ECHOCARDIOGRAM COMPLETE 2D W DOPPLER W COLOR Transthoracic Echocardiography Report (TTE) Demographics Patient Name SUNNY Cox Gender Male MR # [id number] Race Ethnicity Room Number 0025 Date of Study 02/10/2022 Number Date of 1960 Referring Physician Bala Schrader MD Age 61 year(s) Control And Recovery Combat Rescue Lyn Prince [facility]CS Interpreting Beata Leahy MD Physician Procedure Type of Study TTE procedure:ECHOCARDIOGRAM COMPLETE 2D W DOPPLER W COLOR. Procedure Date Date: 02/10/2022 Start: 11:00 AM Study Location: Bedside Technical Quality: Limited visualization due to restricted mobility. Indications:Hypotension. Additional Medical History:Diabetic, hyperlipidemia, hypotension, sleep apnea, dizziness Patient Status: Routine Height: 70 inches Weight: 240.01 pounds BSA: 2.26 m^2 BMI: 34.44 kg/m^2 BP: 112/74 mmHg Conclusions Summary Normal left ventricle size and systolic function. Ejection fraction was estimated at 55-60%. There were no regional left ventricular wall motion abnormalities and wall thickness was within normal limits. Mild tricuspid regurgitation. Mild mitral regurgitation. Signature ------ ------ Findings Mitral Valve The mitral valve structure was normal with normal leaflet separation. DOPPLER: The transmitral velocity was within the normal range with no evidence for mitral stenosis. There was evidence of Mild mitral regurgitation. Aortic Valve The aortic valve was trileaflet with normal thickness and cuspal separation. DOPPLER: Transaortic velocity was within the normal range with no evidence of aortic stenosis. There was no evidence of aortic regurgitation. Tricuspid Valve The tricuspid valve structure was normal with normal leaflet separation. DOPPLER: There was no evidence of tricuspid stenosis. There was evidence of Mild tricuspid regurgitation. Pulmonic Valve The pulmonic valve leaflets exhibited normal thickness, no calcification, and normal cuspal separation. DOPPLER: The transpulmonic velocity was within the normal range with no evidence for regurgitation. Left Atrium Left atrial size was normal. Left Ventricle Normal left ventricle size and systolic function. Ejection fraction was estimated at 55-60%. There were no regional left ventricular wall motion abnormalities and wall thickness was within normal limits. Right Atrium Right atrial size was normal. Right Ventricle The right ventricular size was normal with normal systolic function and wall thickness. Pericardial Effusion The pericardium was normal in appearance with no evidence of a pericardial effusion. Pleural Effusion No evidence of pleural effusion. Aorta / Great Vessels -Aortic root dimension within normal limits. -The Pulmonary artery is within normal limits. -IVC size is within normal limits with normal respiratory phasic changes. M-Mode/2D Measurements AND Calculations LV Diastolic LV Systolic Dimension: AV Cusp Separation: 2.5 cmLA Dimension: 5.1 3.7 cm Dimension: 3.7 cmAO Root cm LV Volume Diastolic: 124 Dimension: 3.8 cmLA Area: 16.6 LV FS:27.5 % ml cm^2 LV PW LV Volume Systolic: 58.1 Diastolic: 0.9 ml cm LV EDV/LV EDV Index: 124 Septum ml/55 m^2LV ESV/LV ESV RV Diastolic Dimension: 2.4 cm Diastolic: 1 Index: 58.1 ml/26 m^2 cm EF Calculated: 53.2 % LA/Aorta: 0.97 Ascending Aorta: 3.5 cm LA volume/Index: 37.4 ml /17m^2 Doppler Measurements AND Calculations MV Peak E-Wave: 96.3 cm/s AV Peak Velocity: 140 LVOT Peak Velocity: 110 MV Peak A-Wave: 89.7 cm/s cm/s cm/s MV E/A Ratio: 1.07 AV Peak Gradient: 7.84 LVOT Peak Gradient: 5 MV Peak Gradient: 3.71 mmHg mmHg mmHg TV Peak E-Wave: 51.4 MV Deceleration Time: 263 cm/s msec TV Peak A-Wave: 38.8 MV P1/2t: 77 msec IVRT: 87 msec cm/s MVA by PHT:2.86 cm^2 TV Peak Gradient: 1.06 MV E' Septal Velocity: 9.9 AV DVI (Vmax):0.79 mmHg cm/s TR Velocity:251 cm/s MV A' Septal Velocity: TR Gradient:25.2 mmHg 11.6 cm/s PV Peak Velocity: 91.3 MV E' Lateral Velocity: cm/s 13.6 cm/s PV Peak Gradient: 3.33 MV A' Lateral Velocity: mmHg 9.5 cm/s E/E' septal: 9.73 E/E' lateral: 7.08 MR Velocity: 463 cm/s [id number]%[id number] Normal [facility] GLUCOSE POCon 02-10-2022 Glucose [Mass/Vol] 113 mg/dL High 70-108 [facility] Comment on above: Performed By: #### C BCND, PT, APTT, BMP, ANION, EGFR1 #### [facility] [address] [place] [address] Glucose [Mass/Vol] 110 mg/dL High 70-108 [facility] Comment on above: Performed By: #### P OCGL #### [facility] [address] [place] [address] Glucose [Mass/Vol] 136 mg/dL High 70-108 [facility] Comment on above: Performed By: #### C BCND, PT, APTT, BMP, ANION, EGFR1 #### [facility] [address] [place] [address] Glucose [Mass/Vol] 125 mg/dL High 70-108 [facility] Comment on above: Performed By: #### P OCGL ####[email or web address] [address] [place] [address] POCT Glucoseon 02-10-2022 Glucose [Mass/Vol] 113 mg/dL High 70 - 108 mg/dl [facility] Comment on above: Performed at [facility] [address] [place] [address] Interpretation and review of laboratory results Abnormal [facility] Glucose [Mass/Vol] 110 mg/dL High 70 - 108 mg/dl [facility] Comment on above: Performed at [facility] [address] [place] [address] Interpretation and review of laboratory results Abnormal [facility] Glucose [Mass/Vol] 136 mg/dL High 70 - 108 mg/dl [facility] Comment on above: Performed at [facility] [address] [place] [address] Interpretation and review of laboratory results Abnormal [facility] Glucose [Mass/Vol] 125 mg/dL High 70 - 108 mg/dl [facility] Comment on above: Performed at [facility] [address] [place] [address] Interpretation and review of laboratory results Abnormal [facility] TSHon 02-10-2022 Interpretation and review of laboratory results Abnormal [facility] TSH Qn 0.354 m[IU]/L Low [facility] Comment on above: Performed at [facility] [address] [place] [address] TSH THIRD GENERATIONon 02-10 TSH THIRD GENERATION 0.354 uIU/mL Low 0.400-4.20 0 [facility] Comment on above: Performed By: #### P OCGL #### [place] [address] CBC WITH DIFFERENTIALon 01-18 ABS BASOPHILS 0.0 thou/mm3 Normal 0.0-0.1 [facility] Comment on above: Performed By: #### C BCND, PT, APTT, BMP, ANION, EGFR1 #### [address] [address] ABS EOSINOPHILS 0.1 thou/mm3 Normal 0.0-0.4 [facility] Comment on above: Performed By: #### C BCND, PT, APTT, BMP, ANION, EGFR1 #### [place] [address] ABS IMMATURE GRANS (IG) 0.02 thou/mm3 Normal 0.00-0.07 [facility] Comment on above: Performed By: #### C BCND, PT, APTT, BMP, ANION, EGFR1 #### [place] [address] ABS LYMPHOCYTES 1.3 thou/mm3 Normal 1.0-4.8 [facility] Comment on above: Performed By: #### C BCND, PT, APTT, BMP, ANION, EGFR1 #### [address] [address] ABS MONOCYTES 0.6 thou/mm3 Normal 0.4-1.3 [facility] Comment on above: Performed By: #### C BCND, PT, APTT, BMP, ANION, EGFR1 #### [address] [address] ABS NEUTROPHILS 4.3 thou/mm3 Normal 1.8-7.7 [facility] Comment on above: Performed By: #### C BCND, PT, APTT, BMP, ANION, EGFR1 #### [address] [address] Basophils/100 WBC (Bld) 0.3 % Normal [facility] Comment on above: Performed By: #### C BCND, PT, APTT, BMP, ANION, EGFR1 #### [address] [address] Eosinophils/100 WBC (Bld) 1.4 % Normal [facility] Comment on above: Performed By: #### C BCND, PT, APTT, BMP, ANION, EGFR1 #### [address] [address] Erythrocyte distribution width (RBC) [Ratio] 13.3 % Normal 11.5-14.5 [facility] Comment on above: Performed By: #### C BCND, PT, APTT, BMP, ANION, EGFR1 #### [address] [address] Hematocrit (Bld) [Volume fraction] 34.3 % Low 42.0-52.0 [facility] Comment on above: Performed By: #### C BCND, PT, APTT, BMP, ANION, EGFR1 #### [address] [address] Hemoglobin (Bld) [Mass/Vol] 10.8 g/dL Low 14.0-18.0 [facility] Comment on above: Performed By: #### C BCND, PT, APTT, BMP, ANION, EGFR1 #### [address] [address] IMMATURE GRANS (IG) 0.3 % Normal [facility] Comment on above: Performed By: #### C BCND, PT, APTT, BMP, ANION, EGFR1 #### [address] [address] Lymphocytes/100 WBC (Bld) 20.2 % Normal [facility] Comment on above: Performed By: #### C BCND, PT, APTT, BMP, ANION, EGFR1 #### [address] [address] MCH (RBC) [Entitic mass] 30.2 pg Normal 26.0-33.0 [facility] Comment on above: Performed By: #### C BCND, PT, APTT, BMP, ANION, EGFR1 #### [address] [address] MCHC (RBC) [Mass/Vol] 31.5 g/dL Low 32.2-35.5 [facility] Comment on above: Performed By: #### C BCND, PT, APTT, BMP, ANION, EGFR1 #### [place] [address] MCV (RBC) [Entitic vol] 95.8 fL High 80.0-94.0 [facility] Comment on above: Performed By: #### C BCND, PT, APTT, BMP, ANION, EGFR1 #### [place] [address] Monocytes/100 WBC (Bld) 9.5 % Normal [facility] Comment on above: Performed By: #### C BCND, PT, APTT, BMP, ANION, EGFR1 #### [place] [address] Neutrophils/100 WBC (Bld) 68.3 % Normal [facility] Comment on above: Performed By: #### C BCND, PT, APTT, BMP, ANION, EGFR1 #### [place] [address] NRBC 0 /100 wbc Normal [facility] Comment on above: Performed By: #### C BCND, PT, APTT, BMP, ANION, EGFR1 #### [place] [address] PLATELET 98 thou/mm3 Low 130-400 [facility] Comment on above: Performed By: #### C BCND, PT, APTT, BMP, ANION, EGFR1 #### [facility] [place] [address] Platelet mean volume (Bld) [Entitic vol] 12.9 fL High 9.4-12.4 [facility] Comment on above: Performed By: #### C BCND, PT, APTT, BMP, ANION, EGFR1 #### [place] [address] RBC 3.58 mill/mm3 Low 4.70-6.10 [facility] Comment on above: Performed By: #### C BCND, PT, APTT, BMP, ANION, EGFR1 #### [facility] [address] [place] [address] RDW-SD 47.0 fL High 35.0-45.0 [facility] Comment on above: Performed By: #### C BCND, PT, APTT, BMP, ANION, EGFR1 #### [facility] [address] [place] [address] WBC 6.3 thou/mm3 Normal 4.8-10.8 [facility] Comment on above: Performed By: #### C BCND, PT, APTT, BMP, ANION, EGFR1 #### [facility] [address] [place] [address] CBC with Auto Differentialon 02-09-2022 Basophils (Bld) [#/Vol] 0.0 10*3/uL [facility] Basophils/100 WBC (Bld) 0.3 % [facility] Eosinophils Absolute 0.1 [facility] Eosinophils/100 WBC (Bld) 1.4 % [facility] Erythrocyte distribution width (RBC) [Ratio] 13.3 % 11.5 - 14.5 % [facility] Erythrocyte distribution width (RBC) [Ratio] 47 fL High 35.0 - 45.0 fL [facility] Hematocrit (Bld) [Volume fraction] 34.3 % Low 42.0 - 52.0 % [facility] Hemoglobin.gastroi ntestinal spec 1 Ql (Stl) 10.8 Low [facility] Immature Grans (Abs) 0.02 [facility] Immature granulocytes/100 WBC (Bld) 0.3 % [facility] Interpretation and review of laboratory results Abnormal [facility] Lymphocytes Absolute 1.3 [facility] Lymphocytes/100 WBC (Bld) 20.2 % [facility] MCH (RBC) [Entitic mass] 30.2 pg 26.0 - 33.0 pg [facility] MCHC (RBC) [Mass/Vol] 31.5 g/dL Low [facility] MCV (RBC) [Entitic vol] 95.8 fL High 80.0 - 94.0 fL [facility] Monocytes Absolute 0.6 [facility] Monocytes/100 WBC (Bld) 9.5 % [facility] nRBC 0 /100 wbc [facility] on above: Performed at [facility] [address] [place] [address] Platelet mean volume (Bld) [Entitic vol] 12.9 fL High 9.4 - 12.4 fL [facility] Platelets (Bld) [#/Vol] 98 10*3/uL Low [facility] RBC (Bld) [#/Vol] 3.58 10*6/uL [facility] Segmented neutrophils/100 WBC (Bld) 68.3 % [facility]s Absolute [facility].3 [facility]) [#/Vol] 6.3 10*3/uL [facility] CORTISOLon 02-09-2022 CORTISOL 15.55 ug/dL Normal [facility] Comment on above: Result Comment: Refe rence ranges AM serum (7-9AM): 4.82-19.5 ug/dl PM serum (3-5PM): 2.47-11.9 ug/dl Performed By: #### P OCGL #### [facility] [address] [place] [address] CORTISOL 21.14 ug/dL Normal [facility] Comment on above: Result Comment: Refe rence ranges AM serum (7-9AM): 4.82-19.5 ug/dl PM serum (3-5PM): 2.47-11.9 ug/dl Performed By: #### P OCGL #### [employer] [address] [place] [address] CORTISOL SPECIMEN 30 Minute Normal [facility] Comment on above: Performed By: #### P OCGL #### [employer] [address] [place] [address] CORTISOL SPECIMEN Baseline Normal [facility] Comment on above: Performed By: #### P OCGL #### [facility] [address] [place] [address] CORTISOL 7.85 ug/dL Normal [facility] Comment on above: Result Comment: Refe rence ranges AM serum (7-9AM): 4.82-19.5 ug/dl PM serum (3-5PM): 2.47-11.9 ug/dl Performed By: #### P OCGL #### [facility] [address] [place] [address] CORTISOL SPECIMEN AM Specimen Normal [facility] Comment on above: Performed By: #### P OCGL #### [address] [address] CORTISOL 4.35 ug/dL Normal [facility] Comment on above: Result Comment: Refe rence ranges AM serum (7-9AM): 4.82-19.5 ug/dl PM serum (3-5PM): 2.47-11.9 ug/dl Performed By: #### P OCGL #### [facility] [employer] [facility] [employer] [address] [address] Cortisol Totalon 02-09-2022 Cortisol 21.14 ug/dL [facility] Comment on above: Reference ranges AM serum (7-9AM): 4.82-19.5 ug/dl PM serum (3-5PM): 2.47-11.9 ug/dl Cortisol Collection Info 60 Minute [facility] Comment on above: Performed at [facility] [place] [address] Sara [employer] Cortisol 15.55 ug/dL [facility] Comment on above: Reference ranges AM serum (7-9AM): 4.82-19.5 ug/dl PM serum (3-5PM): 2.47-11.9 ug/dl Cortisol Collection Info 30 Minute [facility] Comment on above: Performed at [facility] [address] [place] [address] Sara Campbell [employer] Cortisol 4.35 ug/dL [facility] Comment on above: Reference ranges AM serum (7-9AM): 4.82-19.5 ug/dl PM serum (3-5PM): 2.47-11.9 ug/dl Cortisol Collection Info AM Specimen [facility] Comment on above: Performed at [facility] [place] [address] Sara Campbell [employer] Cortisol, 0 minuteson 2021 Cortisol 7.85 ug/dL [facility] Comment on above: Reference ranges AM serum (7-9AM): 4.82-19.5 ug/dl PM serum (3-5PM): 2.47-11.9 ug/dl Cortisol Collection Info Baseline [facility] Comment on above: Performed at [facility] [employer] [address] [employer] GLUCOSE POCon 02-09-2022 Glucose [Mass/Vol] 154 mg/dL High 70-108 [facility] Comment on above: Performed By: #### P OCGL #### [facility] [address] [place] [address] Glucose [Mass/Vol] 167 mg/dL High 70-108 [facility] Comment on above: Performed By: #### C BCND, PT, APTT, BMP, ANION, EGFR1 #### [facility] [address] [place] [address] Glucose [Mass/Vol] 121 mg/dL High 70-108 [facility] Comment on above: Performed By: #### P OCGL #### [facility] [address] [place] [address] Glucose [Mass/Vol] 106 mg/dL Normal 70-108 [facility] Comment on above: Performed By: #### P OCGL #### [facility] [address] [place] [address] Glucose [Mass/Vol] 117 mg/dL High 70-108 [facility] Comment on above: Performed By: #### P OCGL #### [address] [address] POCT Glucoseon 02-09-2022 Glucose [Mass/Vol] 154 mg/dL High 70 - 108 mg/dl [facility] Comment on above: Performed at [facility] [address] [place] [address] Interpretation and review of laboratory results Abnormal [facility] Glucose [Mass/Vol] 167 mg/dL High 70 - 108 mg/dl [facility] Comment on above: Performed at [facility] [address] [place] [address] Interpretation and review of laboratory results Abnormal [facility] Glucose [Mass/Vol] 121 mg/dL High 70 - 108 mg/dl [facility] Comment on above: Performed at [facility] [address] [place] [address] Interpretation and review of laboratory results Abnormal [facility] Glucose [Mass/Vol] 106 mg/dL 70 - 108 mg/dl [facility] Comment on above: Performed at [facility] [address] [place] [id number] [place] [address] Health Glucose [Mass/Vol] 117 mg/dL High 70 - 108 mg/dl [facility] Comment on above: Performed at [facility] [address] [place] [address] Interpretation and review of laboratory results Abnormal [facility] ANION GAPon 02-08-2022 Anion gap [Moles/Vol] 9.0 mmol/L Normal 8.0-16.0 [facility] Comment on above: Result Comment: ANIO N GAP = Sodium -(Chloride + CO2) Performed By: #### C BCND, PT, APTT, BMP, ANION, EGFR1 #### [facility] [address] [place] [address] Anion Gapon 02-08-2022 Anion gap [Moles/Vol] 9.0 mmol/L 8.0 - 16.0 meq/L [facility] Comment on above: ANION GAP = Sodium - (Chloride + CO2) Performed at [facility] [address] [place] [address] Anion gap [Moles/Vol] 6.0 mmol/L Low 8.0 - 16.0 meq/L [facility] Comment on above: ANION GAP = Sodium - (Chloride + CO2) Performed at [facility] [address] [place] [address] BASIC METABOL PANELon 2021 Calcium [Mass/Vol] 7.8 mg/dL Low 8.5-10.5 [facility] Comment on above: Performed By: #### C BCND, PT, APTT, BMP, ANION, EGFR1 #### [facility] [address] [place] [address] Chloride [Moles/Vol] 108 mmol/L Normal 98-111 [facility] Comment on above: Performed By: #### C BCND, PT, APTT, BMP, ANION, EGFR1 #### [facility] [address] [place] [address] CO2 [Moles/Vol] 21 mmol/L Low 23-33 [facility] Comment on above: Performed By: #### C BCND, PT, APTT, BMP, ANION, EGFR1 #### [facility] [address] [place] [address] Creatinine [Mass/Vol] 1.0 mg/dL Normal 0.4-1.2 [facility] Comment on above: Performed By: #### C BCND, PT, APTT, BMP, ANION, EGFR1 #### [facility] [address] [place] [address] Glucose [Mass/Vol] 112 mg/dL High 70-108 [facility] Comment on above: Performed By: #### C BCND, PT, APTT, BMP, ANION, EGFR1 #### [facility] [address] [place] [phone] Potassium [Moles/Vol] 4.3 mmol/L Normal 3.5-5.2 [facility] Comment on above: Performed By: #### C BCND, PT, APTT, BMP, ANION, EGFR1 #### [address] [address] Sodium [Moles/Vol] 138 mmol/L Normal 135-145 [facility] Comment on above: Performed By: #### C BCND, PT, APTT, BMP, ANION, EGFR1 #### [facility] [address] [place] [address] Urea nitrogen [Mass/Vol] 12 mg/dL Normal 7-22 [facility] Comment on above: Performed By: #### C BCND, PT, APTT, BMP, ANION, EGFR1 #### [facility] [employer] [address] [address] Basic Metabolic Panelon 2 Calcium [Mass/Vol] 7.8 mg/dL Low 8.5 - 10. 5 mg/dL [facility] Comment on above: Performed at [facility] [address] [place] [address] Chloride [Moles/Vol] 108 mmol/L 98 - 111 meq/L [facility] CO2 [Moles/Vol] 21 mmol/L Low 23 - 33 meq/L [facility] Creatinine [Mass/Vol] 1 mg/dL 0.4 - 1.2 mg/dL [facility] Glucose [Mass/Vol] 112 mg/dL High 70 - 108 mg/dL [facility] Potassium [Moles/Vol] 4.3 mmol/L 3.5 - 5.2 meq/L [facility] Sodium [Moles/Vol] 138 mmol/L 135 - 145 meq/L [facility] Urea nitrogen (BldV) [Mass/Vol] 12 mg/dL 7 - 22 mg/dL [facility] Calcium [Mass/Vol] 7.5 mg/dL Low 8.5 - 10. 5 mg/dL [facility] Comment on above: Performed at [facility] [address] [place] [address] Chloride [Moles/Vol] 109 mmol/L 98 - 111 meq/L [facility] CO2 [Moles/Vol] 22 mmol/L Low 23 - 33 meq/L [facility] Creatinine [Mass/Vol] 0.8 mg/dL 0.4 - 1.2 mg/dL [facility] Glucose [Mass/Vol] 104 mg/dL 70 - 108 mg/dL [facility] Potassium [Moles/Vol] 3.8 mmol/L 3.5 - 5.2 meq/L [facility] Sodium [Moles/Vol] 137 mmol/L 135 - 145 meq/L [facility] Urea nitrogen (BldV) [Mass/Vol] 12 mg/dL 7 - 22 mg/dL [facility] CBCon 02-08-2022 Erythrocyte distribution width (RBC) [Ratio] 13.4 % 11.5 - 14.5 % [facility] Erythrocyte distribution width (RBC) [Ratio] 48.5 fL High 35.0 - 45.0 fL [facility] Hematocrit (Bld) [Volume fraction] 33.5 % Low 42.0 - 52.0 % [facility] Hemoglobin.gastroi ntestinal spec 1 Ql (Stl) 10.2 Low [facility] Interpretation and review of laboratory results Abnormal [facility] MCH (RBC) [Entitic mass] 30.1 pg 26.0 - 33.0 pg Sara Campbell [facility] MCHC (RBC) [Mass/Vol] 30.4 g/dL Low [facility] MCV (RBC) [Entitic vol] 98.8 fL High 80.0 - 94.0 fL [facility] Platelet mean volume (Bld) [Entitic vol] 12.9 fL High 9.4 - 12.4 fL [facility] Comment on above: Performed at [facility] [address] [place] [address] Platelets (Bld) [#/Vol] 89 10*3/uL Low [facility] RBC (Bld) [#/Vol] 3.39 10*6/uL Low [facility] WBC (Bld) [#/Vol] 6.2 10*3/uL [facility] CBC NO DIFFERENTIALon 2021 Erythrocyte distribution width (RBC) [Ratio] 13.4 % Normal 11.5-14.5 [facility] Comment on above: Performed By: #### P OCGL #### [facility] [address] [place] [address] Hematocrit (Bld) [Volume fraction] 33.5 % Low 42.0-52.0 [facility] Comment on above: Performed By: #### P OCGL #### [address] [address] Hemoglobin (Bld) [Mass/Vol] 10.2 g/dL Low 14.0-18.0 [facility] Comment on above: Performed By: #### P OCGL #### [address] [address] MCH (RBC) [Entitic mass] 30.1 pg Normal 26.0-33.0 [facility] Comment on above: Performed By: #### P OCGL #### [address] [address] MCHC (RBC) [Mass/Vol] 30.4 g/dL Low 32.2-35.5 [facility] Comment on above: Performed By: #### P OCGL #### [address] [address] MCV (RBC) [Entitic vol] 98.8 fL High 80.0-94.0 [facility] Comment on above: Performed By: #### P OCGL #### [address] [address] PLATELET 89 thou/mm3 Low 130-400 [facility] Comment on above: Performed By: #### P OCGL #### [address] [address] Platelet mean volume (Bld) [Entitic vol] 12.9 fL High 9.4-12.4 [facility] Comment on above: Performed By: #### P OCGL #### [facility] [address] [place] [address] RBC 3.39 mill/mm3 Low 4.70-6.10 [facility] Comment on above: Performed By: #### P OCGL #### [facility] [address] [place] [address] RDW-SD 48.5 fL High 35.0-45.0 [facility] Comment on above: Performed By: #### P OCGL #### [facility] [address] [place] [address] WBC 6.2 thou/mm3 Normal 4.8-10.8 [facility] Comment on above: Performed By: #### P OCGL #### [facility] [address] [place] [address] EKG 12 LeadOrdered By: Susan Carrion on 02-08-2022 Atrial Rate 55 BPM [facility] Work Phone: P Tiline 27 degrees [facility] Work Phone: P-R Interval 162 ms [facility] Phone: Q-T Interval 460 ms [facility] Phone: QRS Duration 94 ms [facility] Work Phone: QTc Calculation (Bazett) 440 ms [facility] Work Phone: R Tiline -22 degrees [facility] Work Phone: T Tiline 1 degrees [facility] Work Phone: Ventricular Rate 55 BPM [facility] Work Phone: [facility] Phone: EKG 12 Leadon 02-08-2022 Sinus bradycardia Otherwise normal ECG When compared with ECG of 23-JAN-2022 11:32, No significant change was found Confirmed by SUSAN CARRION ([id number]) on 02/08/2022 10:35:59 AM [facility] STR MUSE Susan Carrion MD - 02/08/2022 Sinus bradycardia Otherwise normal ECG When compared with ECG of 23-JAN-2022 11:32, No significant change was found Confirmed by SUSAN CARRION ([id number]) on 02/08/2022 10:35:59 AM [facility] Phone: EKG 12-LEADon 02-08-2022 EKG 12-LEAD 55 55 [phone] 27 -22 1 Sinus bradycardia Otherwise normal ECG When compared with ECG of 23-JAN-2022 11:32, No significant change was found Confirmed by SUSAN CARRION ([id number]) on 02/08/2022 10:35:59 AM [email or web address] Date=08-02-2022&Time=09%3a14% 3a41%3a00&TestType=ECG&Site=3 &OutputType=PDF&Ext=PDF Normal [facility] GFR, ESTIMATEDon 02-08-2022 GFR/1.73 sq M.predicted MDRD (S/P/Bld) [Vol rate/Area] 75 mL/min/{1.73_m2} Abnormal [facility] Comment on above: Result Comment: Lilliam crum Description GFR, ml/min/1.73 m2 - At increased risk > or = 60 (with chronic kidney disease risk factors) 1 Normal or increased GFR > or = 90 2 Mildly or decreased GFR 60 - 89 3 Moderately decreased GFR 30 - 59 4 Severely decreased GFR 15 - 29 5 Kidney failure <15 (or dialysis) Estimated GFR calculated using abbreviated MDRD formula as recommended by National Kidney Foundation. Calculation based upon serum creatinine and adjusted for age, gender & race. Alana. Internal Med., Vol. 139 (2) pg 137-147. Performed By: #### C BCND, PT, APTT, BMP, ANION, EGFR1 #### [facility] [address] [place] [address] GLUCOSE POCon 02-08-2022 Glucose [Mass/Vol] 71 mg/dL Normal 70-108 [facility] Comment on above: Performed By: #### P OCGL ####[facility] [place] [address] Glucose [Mass/Vol] 111 mg/dL High 70-108 [facility] Comment on above: Performed By: #### C BCND, PT, APTT, BMP, ANION, EGFR1 #### [facility] [address] [place] [address] Glucose [Mass/Vol] 66 mg/dL Low 70-108 [facility] Comment on above: Performed By: #### P OCGL #### [facility] [address] [place] [address] Glucose [Mass/Vol] 116 mg/dL High 70-108 [facility] Comment on above: Performed By: #### C BCND, PT, APTT, BMP, ANION, EGFR1 #### [facility] [address] [place] [address] Glucose [Mass/Vol] 68 mg/dL Low 70-108 [facility] Comment on above: Performed By: #### P OCGL #### [facility] [address] [place] [address] Glucose [Mass/Vol] 101 mg/dL Normal 70-108 [facility] Comment on above: Performed By: #### C BCND, PT, APTT, BMP, ANION, EGFR1 #### [facility] [address] [place] [address] Glucose [Mass/Vol] 126 mg/dL High 70-108 [facility] Comment on above: Performed By: #### P OCGL #### [facility] [address] [place] [address] Glomerular Filtration Rate, Estimatedon 02-08-2022 GFR/1.73 sq M.predicted MDRD (S/P/Bld) [Vol rate/Area] 75 mL/min/{1.73_m2} Abnormal ml/min/1.[address] [place] [address] Comment on above: Stage Description GF R, ml/min/1.73 m2 - At increased risk > or = 60 (with chronic kidney disease risk factors) 1 Normal or increased GFR > or = 90 2 Mildly or decreased GFR 60 - 89 3 Moderately decreased GFR 30 - 59 4 Severely decreased GFR 15 - 29 5 Kidney failure <15 (or dialysis) Estimated GFR calculated using abbreviated MDRD formula as recommended by National Kidney Foundation. Calculation based upon serum creatinine and adjusted for age, gender & race. Alana. Internal Med., Vol. 139 (2) pg 137-147. Performed at [facility] [address] [place] [address] GFR/1.73 sq M.predicted MDRD (S/P/Bld) [Vol rate/Area] mL/min/{1.73_m2} ml/min/1.7 3m2 [facility] Comment on above: Stage Description GF R, ml/min/1.73 m2 - At increased risk > or = 60 (with chronic kidney disease risk factors) 1 Normal or increased GFR > or = 90 2 Mildly or decreased GFR 60 - 89 3 Moderately decreased GFR 30 - 59 4 Severely decreased GFR 15 - 29 5 Kidney failure <15 (or dialysis) Estimated GFR calculated using abbreviated MDRD formula as recommended by National Kidney Foundation. Calculation based upon serum creatinine and adjusted for age, gender & race. Alana. Internal Med., Vol. 139 (2) pg 137-147. Performed at [facility] [address] [place] [address] HGB,HCTon 02-08-2022 Hematocrit (Bld) [Volume fraction] 37.3 % Low 42.0-52.0 [facility] Comment on above: Performed By: #### P OCGL #### [facility] [address] [place] [address] Hemoglobin (Bld) [Mass/Vol] 11.4 g/dL Low 14.0-18.0 [facility] Comment on above: Performed By: #### P OCGL #### [facility] [address] [place] [address] Hemoglobin and Hematocriton 02-08-2022 Hematocrit (Bld) [Volume fraction] 37.3 % Low 42.0 - 52.0 % [facility] Comment on above: Performed at [facility] [address] [place] [address] Hemoglobin.gastroi ntestinal spec 1 Ql (Stl) 11.4 Low [facility] Interpretation and review of laboratory results Abnormal [facility] Hemoglobin and hematocrit, b loodon 02-08-2022 Hematocrit (Bld) [Volume fraction] 36.9 % Low 42.0 - 52.0 % [facility] Comment on above: Performed at [facility] [address] [place] [address] Hemoglobin.gastroi ntestinal spec 1 Ql (Stl) 11.6 Low [facility] Interpretation and review of laboratory results Abnormal [facility] No Panel Informationon 02-08 Interpretation and review of laboratory results Abnormal [facility] Interpretation and review of laboratory results Abnormal [facility] POCT Glucoseon 02-08-2022 Glucose [Mass/Vol] 71 mg/dL 70 - 108 mg/dl [facility] Comment on above: Performed at [facility] [address] [place] [address] Health Glucose [Mass/Vol] 111 mg/dL High 70 - 108 mg/dl [facility] Comment on above: Performed at [facility] [address] [place] [address] Interpretation and review of laboratory results Abnormal [facility] Health Glucose [Mass/Vol] 66 mg/dL Low 70 - 108 mg/dl [facility] Comment on above: Performed at [facility] [address] [place] [address] Interpretation and review of laboratory results Abnormal [facility] Health Glucose [Mass/Vol] 116 mg/dL High 70 - 108 mg/dl [facility] Comment on above: Performed at [facility] [address] [place] [address] Interpretation and review of laboratory results Abnormal [facility] Health Glucose [Mass/Vol] 68 mg/dL Low 70 - 108 mg/dl [facility] Comment on above: Performed at [facility] [address] [place] [address] Interpretation and review of laboratory results Abnormal [facility] Health Glucose [Mass/Vol] 101 mg/dL 70 - 108 mg/dl [facility] Comment on above: Performed at [facility] [address] [place] [address] Health Glucose [Mass/Vol] 126 mg/dL High 70 - 108 mg/dl [facility] Comment on above: Performed at [facility] [address] [place] [address] Interpretation and review of laboratory results Abnormal [facility] PROCALCITONINon 02-08-2022 PROCALCITONIN 0.08 ng/mL Normal 0.01-0.09 [facility] Comment on above: Result Comment: Susp ected Sepsis: <0.50 ng/mL Low likelihood of sepsis. 0.50-2.00 ng/mL Increased likelihood of sepsis. Antibiotics encouraged. >2.00 ng/mL High risk of sepsis/shock. Antibiotics strongly encouraged. Suspected Lower Resp Tract Infections: <0.24 ng/mL Low likelihood of bacterial infection. >0.24 ng/mL Increased likelihood of bacterial infection. Antibiotics encouraged. With successful antibiotic therapy, PCT levels should decrease rapidly. (Half-life of 24 to 36 hours.) Procalcitonin values from samples collected within the first 6 hours of systemic infection may still be low. Retesting may be indicated. Values from day 1 and day 4 can be entered into the Change in Procalcitonin Calculator ([employer]jdhwbg[employer]lgs-tlvcpmqmos[employer]) to determine the patient's Mortality Risk Prognosis. In healthy neonates, plasma Procalcitonin (PCT) concentrations increase gradually after , reaching peak values at about 24 hours of age then decrease to normal values below 0.5 ng/mL by 48-72 hours of age. Performed By: #### P OCGL #### [facility] [address] [place] [address] Procalcitoninon 02-08-2022 Procalcitonin 0.08 ng/mL 0.01 - 0.09 ng/mL [facility] Comment on above: Suspected Sepsis: <0.50 ng/mL Low likelihood of sepsis. 0.50-2.00 ng/mL Increased likelihood of sepsis. Antibiotics encouraged. >2.00 ng/mL High risk of sepsis/shock. Antibiotics strongly encouraged. Suspected Lower Resp Tract Infections: <0.24 ng/mL Low likelihood of bacterial infection. >0.24 ng/mL Increased likelihood of bacterial infection. Antibiotics encouraged. With successful antibiotic therapy, PCT levels should decrease rapidly. (Half-life of 24 to 36 hours.) Procalcitonin values from samples collected within the first 6 hours of systemic infection may still be low. Retesting may be indicated. Values from day 1 and day 4 can be entered into the Change in Procalcitonin Calculator ([employer]) to determine the patient's Mortality Risk Prognosis. In healthy neonates, plasma Procalcitonin (PCT) concentrations increase gradually after , reaching peak values at about 24 hours of age then decrease to normal values below 0.5 ng/mL by 48-72 hours of age. Performed at [address] SCAN OF BLOOD SMEARon 2021 SCAN OF BLOOD SMEAR see below Normal [facility] Comment on above: Result Comment: Crit erbrigid Exceeded; Scan of Differential Slide Performed Performed By: #### P OCGL #### [facility] [address] [place] [address] Scan of Blood Smearon 2021 SCAN OF BLOOD SMEAR see below [facility] Comment on above: Criteria Exceeded; S can of Differential Slide Performed Performed at [address] XR CHEST PORTABLEon 02-09-20 22 Prominent left basil ar opacity as evidence for atelectasis and/or infiltrate. This report has been created using voice recognition software. It may contain minor errors which are inherent in voice recognition technology. Final report electronically signed by Dr. Romel Maldonado DO, MD on 02/08/2022 10:26 AM [facility] Romel Nguyen DO - 02/08/2022 PROCEDURE: XR CHEST PORTABLE CLINICAL INFORMATION: SOB. COMPARISON: Chest radiographs dated 01/23/2022. TECHNIQUE: AP upright view of the chest. FINDINGS: There is prominent left basilar opacity with some volume loss on the left which has appeared in the interval since prior exam. The right lung appears clear. Cardiac silhouette is partially obscured. There is a spinal stimulator lead projecting over the thoracic spine. There are stable degenerative changes of the acromioclavicular joints. IMPRESSION: Prominent left basilar opacity as evidence for atelectasis and/or infiltrate. This report has been created using voice recognition software. It may contain minor errors which are inherent in voice recognition technology. Final report electronically signed by Dr. Romel Maldonado DO, MD on 02/08/2022 10:26 AM [facility] Phone: Radiology Study observation (narrative) [facility] Phone: XR CHEST PORTABLEOrdered By: Romel Maldonado on 02-08-2022 [facility] Work Phone: GLUCOSE POCon 02-07-2022 Glucose [Mass/Vol] 132 mg/dL High 70-108 [facility] Comment on above: Performed By: #### C BCND, PT, APTT, BMP, ANION, EGFR1 #### [facility] [address] [place] [address] Glucose [Mass/Vol] 118 mg/dL High 70-108 [facility] Comment on above: Performed By: #### C BCND, PT, APTT, BMP, ANION, EGFR1 #### [facility] [address] [place] [address] Glucose [Mass/Vol] 77 mg/dL Normal 70-108 [facility] Comment on above: Performed By: #### P OCGL #### [facility] [address] [place] [address] POCT Glucoseon 02-07-2022 Glucose [Mass/Vol] 132 mg/dL High 70 - 108 mg/dl [facility] Comment on above: Performed at [facility] [address] [place] [address] Interpretation and review of laboratory results Abnormal [facility] Glucose [Mass/Vol] 118 mg/dL High 70 - 108 mg/dl [facility] Comment on above: Performed at [facility] [address] [place] [address] Interpretation and review of laboratory results Abnormal [facility] Glucose [Mass/Vol] 77 mg/dL 70 - 108 mg/dl [facility] Comment on above: Performed at [facility] [address] [place] [address] [facility] TYPE AND SCREENon 02-07-2022 ABO A [facility] Rh Factor Negative [facility] TYPE AND SCREEN CAPTUREon ABO CAPTURE A Normal [facility] Comment on above: Performed By: #### C BCND, PT, APTT, BMP, ANION, EGFR1 #### [facility] [address] [place] [address] INDIRECT ARVIN CAPTURE Negative Normal [facility] Comment on above: Performed By: #### C BCND, PT, APTT, BMP, ANION, EGFR1 #### [facility] [address] [place] [address] RH CAPTURE (2 D CLONES) Negative Normal [facility] Comment on above: Performed By: #### C BCND, PT, APTT, BMP, ANION, EGFR1 #### [facility] [address] [place] [address] XR LUMBAR SPINE 1 VWon 02-07 XR LUMBAR SPINE 1 VW MOBILE LATERAL LUMBAR SPINE: CLINICAL INFORMATION: L2 S1 decompression, posterior COMPARISON: Earlier film same date, 1120 hours. TECHNIQUE: A single lateral mobile view of the lumbar spine was obtained following surgery performed by Dr. Loza. FINDINGS: Posterior lumbar fusion has been performed, with the pedicle screws and rods extending from L2 to S1. The lumbar vertebra are normally aligned. IMPRESSION: Postop appearance of the lumbar spine. This report has been created using voice recognition software. It may contain minor errors which are inherent in voice recognition technology. Final report electronically signed by Dr. Wicho Allen on 02/07/2022 2:28 PM Interpreted by: Wicho Allen MD Signed by: Wicho Allen MD 02/07/22 Final result Normal [facility] Postop appearance of the lumbar spine. This report has been created using voice recognition software. It may contain minor errors which are inherent in voice recognition technology. Final report electronically signed by Dr. Wicho Allen on 02/07/2022 2:28 PM [facility] MOBILE LATERAL LUMBA R SPINE: CLINICAL INFORMATION: L2 S1 decompression, posterior COMPARISON: Earlier film same date, 1120 hours. TECHNIQUE: A single lateral mobile view of the lumbar spine was obtained following surgery performed by Dr. Loza. FINDINGS: Posterior lumbar fusion has been performed, with the pedicle screws and rods extending from L2 to S1. The lumbar vertebra are normally aligned. [facility] Wicho Allen MD - 02/07/2022 MOBILE LATERAL LUMBAR SPINE: CLINICAL INFORMATION: L2 S1 decompression, posterior COMPARISON: Earlier film same date, 1120 hours. TECHNIQUE: A single lateral mobile view of the lumbar spine was obtained following surgery performed by Dr. Loza. FINDINGS: Posterior lumbar fusion has been performed, with the pedicle screws and rods extending from L2 to S1. The lumbar vertebra are normally aligned. IMPRESSION: Postop appearance of the lumbar spine. This report has been created using voice recognition software. It may contain minor errors which are inherent in voice recognition technology. Final report electronically signed by Dr. Wicho Allen on 02/07/2022 2:28 PM [employer] Phone: Lateral film of the lumbar spine during surgery. Please refer to the operative note for further details. This report has been created using voice recognition software. It may contain minor errors which are inherent in voice recognition technology. Final report electronically signed by Dr Milton Way on 02/07/2022 2:17 PM [facility] Milton Somers MD - 02/07/2022 PROCEDURE: XR LUMBAR SPINE 1 VW CLINICAL INFORMATION: 61-year-old male undergoing lumbar spine surgery . COMPARISON: No prior study. TECHNIQUE: One lateral film of the lumbar spine was obtained during surgery. FINDINGS: The generator to a stimulator device is seen in the soft tissues overlying the lower back. There are diffuse degenerative changes in the lumbar spine. There are localizer probes with a posterior approach position behind the L2 and L3 vertebral bodies. IMPRESSION: Lateral film of the lumbar spine during surgery. Please refer to the operative note for further details. This report has been created using voice recognition software. It may contain minor errors which are inherent in voice recognition technology. Final report electronically signed by Dr Milton Way on 02/07/2022 2:17 PM [employer] Phone: Radiology Study observation (narrative) [employer] Phone: Radiology Study observation (narrative) [employer] Phone: XR LUMBAR SPINE 1 VWOrdered By: Wicho Allen on 02-07-2022 [employer] Phone: XR LUMBAR SPINE 1 VWOrdered By: Milton Way on 02-07-2022 [facility] ANION GAPon 01-23-2022 Anion gap [Moles/Vol] 10.0 mmol/L Normal 8.0-16.0 [facility] Comment on above: Result Comment: ANIO N GAP = Sodium -(Chloride + CO2) Performed By: #### P OCGL #### [place] [address] APTTon 01-23-2022 aPTT Coag (Bld) [Time] 35.1 s Normal 22.0-38.0 [facility] Comment on above: Result Comment: Ther apeutic Heparin Reference Range= 60-95 seconds (corresponds to 0.3 to 0.7 u/mL Anti-Xa factor activity) Performed By: #### C BCND, PT, APTT, BMP, ANION, EGFR1 #### [place] [address] BASIC METABOL PANELon 2021 Calcium [Mass/Vol] 9.8 mg/dL Normal 8.5-10.5 [facility] Comment on above: Performed By: #### C BCND, PT, APTT, BMP, ANION, EGFR1 #### [employer] [facility] [address] [place] [address] Chloride [Moles/Vol] 104 mmol/L Normal 98-111 [facility] Comment on above: Performed By: #### C BCND, PT, APTT, BMP, ANION, EGFR1 #### [employer] [address] [address] CO2 [Moles/Vol] 29 mmol/L Normal 23-33 [facility] Comment on above: Performed By: #### C BCND, PT, APTT, BMP, ANION, EGFR1 #### [facility] [address] [place] [address] Creatinine [Mass/Vol] 1.0 mg/dL Normal 0.4-1.2 [facility] Comment on above: Performed By: #### C BCND, PT, APTT, BMP, ANION, EGFR1 #### [facility] [address] [place] [address] Glucose [Mass/Vol] 87 mg/dL Normal 70-108 [facility] Comment on above: Performed By: #### C BCND, PT, APTT, BMP, ANION, EGFR1 #### [place] [address] Potassium [Moles/Vol] 4.6 mmol/L Normal 3.5-5.2 [facility] Comment on above: Performed By: #### C BCND, PT, APTT, BMP, ANION, EGFR1 #### [place] [address] Sodium [Moles/Vol] 143 mmol/L Normal 135-145 [facility] Comment on above: Performed By: #### C BCND, PT, APTT, BMP, ANION, EGFR1 #### [place] [address] Urea nitrogen [Mass/Vol] 21 mg/dL Normal 7-22 [facility] Comment on above: Performed By: #### C BCND, PT, APTT, BMP, ANION, EGFR1 #### [place] [address] CBC NO DIFFERENTIALon 2021 Erythrocyte distribution width (RBC) [Ratio] 13.7 % Normal 11.5-14.5 [facility] Comment on above: Performed By: #### C BCND, PT, APTT, BMP, ANION, EGFR1 #### [place] [address] Hematocrit (Bld) [Volume fraction] 51.9 % Normal 42.0-52.0 [facility] Comment on above: Performed By: #### C BCND, PT, APTT, BMP, ANION, EGFR1 #### [place] [address] Hemoglobin (Bld) [Mass/Vol] 16.3 g/dL Normal 14.0-18.0 [facility] Comment on above: Performed By: #### C BCND, PT, APTT, BMP, ANION, EGFR1 #### [place] [address] MCH (RBC) [Entitic mass] 30.1 pg Normal 26.0-33.0 [facility] Comment on above: Performed By: #### C BCND, PT, APTT, BMP, ANION, EGFR1 #### [place] [address] MCHC (RBC) [Mass/Vol] 31.4 g/dL Low 32.2-35.5 [facility] Comment on above: Performed By: #### C BCND, PT, APTT, BMP, ANION, EGFR1 #### [place] [address] MCV (RBC) [Entitic vol] 95.8 fL High 80.0-94.0 [facility] Comment on above: Performed By: #### C BCND, PT, APTT, BMP, ANION, EGFR1 #### [place] [address] PLATELET 149 thou/mm3 Normal 130-400 [facility] Comment on above: Performed By: #### C BCND, PT, APTT, BMP, ANION, EGFR1 #### [place] [address] Platelet mean volume (Bld) [Entitic vol] 12.6 fL High 9.4-12.4 [facility] Comment on above: Performed By: #### C BCND, PT, APTT, BMP, ANION, EGFR1 #### [place] [address] RBC 5.42 mill/mm3 Normal 4.70-6.10 [facility] Comment on above: Performed By: #### C BCND, PT, APTT, BMP, ANION, EGFR1 #### [place] [address] RDW-SD 48.8 fL High 35.0-45.0 [facility] Comment on above: Performed By: #### C BCND, PT, APTT, BMP, ANION, EGFR1 #### [place] [address] WBC 5.8 thou/mm3 Normal 4.8-10.8 [facility] Comment on above: Performed By: #### C BCND, PT, APTT, BMP, ANION, EGFR1 #### [place] [address] EKG 12-LEADon 01-23-2022 EKG 12-LEAD 55 55 168 90 438 419 24 -23 Sinus bradycardia Otherwise normal ECG No previous ECGs available Confirmed by BALA SCHRADER MD ([id number]) on 01/23/2022 7:54:09 PM [email or web address] Date=04-21-2022&Time=11%3a32% 3a52%3a00&TestType=ECG&Site=3 &OutputType=PDF&Ext=PDF Normal [facility] GFR, ESTIMATEDon 01-23-2022 GFR/1.73 sq M.predicted MDRD (S/P/Bld) [Vol rate/Area] 75 mL/min/{1.73_m2} Abnormal [facility] Comment on above: Result Comment: Lilliam crum Description GFR, ml/min/1.73 m2 - At increased risk > or = 60 (with chronic kidney disease risk factors) 1 Normal or increased GFR > or = 90 2 Mildly or decreased GFR 60 - 89 3 Moderately decreased GFR 30 - 59 4 Severely decreased GFR 15 - 29 5 Kidney failure <15 (or dialysis) Estimated GFR calculated using abbreviated MDRD formula as recommended by National Kid[employer]. Calculation based upon serum creatinine and adjusted for age, gender & race. Alana. Internal Med., Vol. 139 (2) pg 137-147. Performed By: #### P OCGL #### [facility] [address] [place] [address] HEMOGLOBIN A1Con 01-23-2022 Glucose [Mass/Vol] 99 mg/dL Normal 70-126 [facility] Comment on above: Performed By: #### C BCND, PT, APTT, BMP, ANION, EGFR1 #### [facility] [address] [place] [address] HbA1c (Bld) [Mass fraction] 5.3 % Normal 4.4-6.4 [facility] Comment on above: Performed By: #### C BCND, PT, APTT, BMP, ANION, EGFR1 #### [facility] [address] [place] [address] NASAL COMPLETE SCREEN RT-PCR on 01-23-2022 MRSA SCREEN RT-PCR Positive Abnormal [facility] Comment on above: Result Comment: MRSA TARGET DNA DETECTED by Real Time - Polymerase Chain Reaction. A positive test result does not necessarily indicate the presence of viable organisms. It is, however, presumptive for the presence of MRSA DNA. . Performed By: #### P OCGL #### [place] [id number] SA SCREEN RT-PCR Positive Abnormal [facility] Comment on above: Result Comment: Stap hylococcus aureus (SA) target DNA DETECTED by Real Time - Polymerase Chain Reaction. A positive test result does not necessarily indicate the presence of viable organisms. It is, however presumptive for the presence of SA DNA. Performed By: #### P OCGL #### [place] [id number] PROTHOMBIN TIMEon 01-23-2022 INR Coag (Bld) [Relative time] 1.06 {INR} Normal 0.85-1.13 [facility] Comment on above: Result Comment: ---- -----INDICATION INR Reference Range DVT, PE, AF, AMI, tissue heart valve 2.0 to 3.0 Mechanical prosthetic valves 2.5 to 3.5 Performed By: #### C BCND, PT, APTT, BMP, ANION, EGFR1 #### [place] [id number] [facility] CARDIAC STRESS/REST INJE CTIONon 09-05-2021 [facility] CARDIAC STRESS/REST INJECTION Patient Name: ALISIA CORREA STUDY: MYOCARDIAL PERFUSION STRESS TEST WITH LEXISCAN Performing facility: [facility], [address] [place] [address], [address], [place] [address] [facility] Provider: Ren Watson MD, FACC PCP: Dr. Ellen Crabtree Supervising provider: Milagros Mcnally MD, FACC INDICATION: Chest Pain; Dyspnea HISTORY: Gender: M; Age: 60 y/o ; Height: 0 cm; Weight: 0 kg. High Cholesterol; Chest Pain; Syncope; Parkinson's Currently smoking. COMPARISON: Previous nuclear testing completed [id number] at [facility]. ACCESSION NUMBER(S): [id number]; [id number]; [id number] ORDERING CLINICIAN: REN WATSON TECHNIQUE: ONE DAY protocol. Stress injection: Date:09-05-21, 34.1 mCi of Myoview IV 20 seconds after rapid injection of Lexiscan. Rest injection: Date: 09-05-21, 11.5 mCi of Myoview IV at rest. The patient had a rapid injection of 0.4 mg of Lexiscan IV over 10 seconds. Imaging was performed by gated tomographic technique. Reason for Lexiscan: uses walker/cane STRESS TEST DATA: Resting heart rate was 62 BPM. Resting blood pressure was 104/74 mmHg. Peak blood pressure was 90/64 mmHg. Peak heart rate was 78 BPM. TEST TERMINATED DUE TO: Protocol completed FINDINGS: STRESS TEST RESULTS: Resting electrocardiogram revealed normal sinus rhythm with left axis deviation. There were no significant ischemic ECG changes or dysrhythmias. The patient did not have chest pains/symptoms during procedure. There was a normal recovery phase. IMAGING RESULTS: Image quality was good. Rest and stress tomographic images were reviewed and revealed normal perfusion without evidence of ischemia, myocardial infarction, or left ventricular dilatation with stress. Overall left ventricular systolic function appeared to be normal without regional wall motion abnormalities. Ejection fraction was 58%. TID is 1.01 and is normal. There was evidence of inferolateral diaphragmatic attenuation artifact. IMPRESSION: Normal Lexiscan Myoview cardiac perfusion stress test. No evidence of ischemia or myocardial infarction by perfusion imaging. Normal left ventricular systolic function, ejection fraction 58%. When compared to a study from 2012, there has been no significant interval changes. Electronically signed by: REN WATSON MD Normal [facility] No Panel Informationon 09-05 Normal -Located Within [facility] [address] [place] Work Phone: Office Visit (Cardiology)on 08-16-2021 Follow-up visit Diagnoses/Problems Assessed Chest pain (786.50) (R07.9) Dyspnea (786.09) (R06.00) Parkinson disease, symptomatic (332.0) (G20) Hyperlipidemia (272.4) (E78.5) Diabetes mellitus (250.00) (E11.9) Orthostatic hypotension (458.0) (I95.1) Class 1 obesity with body mass index (BMI) of 32.0 to 32.9 in adult (278.00,V85.32) (E66.9,Z68.32) Current smoker (305.1) (F17.200) 6 ciggs daily Fainting (780.2) (R55) Orders Chest pain, Dyspnea NM Cardiac Stress/Rest Nuclear Med Order; Status:Hold For - Scheduling,Retrospective Authorization; Requested for:16Aug2021; Radiologist to Determine Optimal Study : Y What are the patient's signs and symptoms? : chest pain, dyspnea Chest pain, Dyspnea, Orthostatic hypotension IO EKG Electrocardiogram- 12 Lead; Status:Complete; Done: 16Aug2021 Class 1 obesity with body mass index (BMI) of 32.0 to 32.9 in adult Healthy Weight Tips; Status:Complete - Retrospective Authorization; Done: 16Aug2021 Orthostatic hypotension Start: Midodrine HCl - 5 MG Oral Tablet; Take 1 tablet twice daily SocHx: Current smoker You need to quit smoking.; Status:Complete - Retrospective Authorization; Done: 16Aug2021 You need to stop smoking. Though it is not easy, more than half of all adult smokers have quit. We encourage you to write down all the reasons you should quit smoking and set a quit date for yourself. Ask us how we can help. You may also call 9-662-JYVUNOW for free resources and assistance.; Status:Complete - Retrospective Authorization; Done: 16Aug2021 Tobacco Use Screening; Status:Complete; Done: 16Aug2021 Patient Instructions By signing my name below, IMeghana LPN, Scribe, attest that this documentation has been prepared under the direction and in the presence of Dr. Ren Watson MD. All medical record entries made by the Elliot were at my direction and personally dictated by me. I have reviewed the chart and agree that the record accurately reflects my personal performance of the history, physical exam, discussion and plan. Please bring all medicines, vitamins, and herbal supplements with you when you come to the office. Prescriptions will not be filled unless you are compliant with your follow up appointments or have a follow up appointment scheduled as per instruction of your physician. Refills should be requested at the time of your visit. Follow-up after testing completed Chief Complaint ALISIA CORREA is being seen for a consultation for chest pain. 60-year-old white male who is being evaluated at the request of PCP for symptoms of dyspnea and chest pain with syncope. The patient appears older than his stated age and unfortunately has history of Parkinson's disease followed by neurology from [place] on medical therapy. The patient has been experienced symptoms of syncope with minor injuries. They seem to be all related to upright position likely related to Parkinson's disease and autonomic dysfunction. He has described atypical chest pain and dyspnea on exertion however his activity level is extremely limited. The patient has in the past had multiple nuclear stress tests in 2004, 2007, 2009 and 2011. All of these came back normal. He had an echocardiogram 2007 which also came back normal. He is actively smoking and he is diabetic and hyperlipidemic. His blood pressure is on the low side. He denies any palpitations and described pain in his lower extremities with an ulceration that has not been followed by podiatry. He was advised to follow-up with podiatry as soon as possible. His examination revealed normal heart sounds normal lung sounds and no significant lower extremity edema. He was not in any distress. His EKG revealed normal sinus rhythm with no acute changes. Assessment/recommendations: 1?syncope that is likely related to Parkinson's disease and autonomic dysfunction and hypotension. The patient will start taking midodrine 5 mg twice daily 2?symptoms of chest pain of unknown etiology. Has had multiple stress tests in the past however the last evaluation was 2011. Lexiscan perfusion study is recommended and will be scheduled 3?hypertension related to Parkinson's disease. The patient will start on midodrine 5 mg twice daily 4?active tobacco abuse. He was counseled for tobacco cessation 5?hyperlipidemia on statin therapy and Zetia 6?diabetes managed by PCP. 7?Parkinson's disease followed by neurology from [place]. 8?obesity, encouraged the patient to reduce caloric consumption 9?possible PAD, patient is following up with podiatry Surgical History Problems History of Back surgery x 8 History of Complete colonoscopy Managed By: Mery YBARRA, Dorian Alamo (Gastroenterology) History of Ear surgery reconstruction History of Gastric bypass surgery History of Hand surgery x 3 - right History of Hip replacement bilateral History of Knee replacement x 3 History of Lymph node surgery right neck History of Rotator cuff repair x 2 right History o (more content not included)... Normal [facility] Tobacco Screening.on 021 Fall risk assessment b) One or more falls in the last year [facility] [address] DO Work Phone: Tobacco use status CP a) Yes [facility] Tang y [address] DO Work Phone: Tobacco Screening. Yes [facility] Tang y [address] DO Work Phone: CT C-SPINE W RECON DATA -NBo n 09-17-2020 CT C-SPINE W RECON DATA -NB * * *Final Report* * * DATE OF EXAM: Sep 17 2020 12:01PM [facility] 0478 - CT C-SPINE W RECON DATA -NB / PROCEDURE REASON: Spinal stenosis of cervical region * * * * Physician Interpretation * * * * EXAMINATION: CT C-SPINE W RECON DATA -NB CLINICAL HISTORY: TECHNIQUE: CT of the cervical spine without IV contrast. Spiral, high resolution axial images were obtained from the skull base to the cervicothoracic junction with sagittal and coronal planar reconstructions. MQ: [id number] CT Radiation dose: Integrated CT Dose-Length Product (DLP) for this visit = 2096 mGy*cm CT Dose Reduction Employed: No dose reduction techniques were required COMPARISON: None. RESULT: Counting reference: Craniocervical junction. Anatomic Variants: None. Tapering Machine Operator (topogram) images: Postop changes of the bland. Also ACDF in the lower cervical spine. Postop: There is beam hardening artifact due to anterior plate and screws at C6-T1. The fusion is radiographically intact. Alignment: There is grade I anterolisthesis of C4 on C5. Craniocervical junction: Craniocervical junction is normal. Osseous structures/fracture: No evidence of a lytic or blastic process in the visualized spine. No evidence of acute or chronic fracture. Cervical soft tissues: The paraspinal soft tissues are within normal limits. Degenerative changes: C2-C3: Moderate right neural foraminal stenosis due to uncovertebral joint and facet hypertrophy. Canal left neural foramen are patent. C3-C4: Mild narrowing the spinal canal due to endplate hypertrophy. Mild right and moderate left neural foraminal stenosis due to loss of disc height and left facet hypertrophy. C4-C5: Mild/moderate narrowing the spinal canal due to suture disc bulge and facet hypertrophy. Right neural foramen is patent. Moderate left neural foraminal stenosis. C5-C6: Canal and left neural foramen are patent. Mild right neural foraminal stenosis due to facet and uncovertebral joint hypertrophy. C6-C7 and C7-T1 Canal is patent. Bilateral mild neural foraminal stenosis due to loss of disc height. IMPRESSION: Remote postoperative changes of ACDF at C6-T1. No evidence of an acute bony injury. Moderate degenerative changes in the cervical spine as detailed above. No pathologic enhancement associated with the cervical spine. Anatomic Variant: None. Assume 7 cervical vertebrae with counting from the craniocervical junction. Investigator Operator: [facility] Transcribe Date/Time: Sep 17 2020 12:05P Dictated by : NICO MARTIN MD This examination was interpreted and the report reviewed and electronically signed by: NICO MARTIN MD on Sep 17 2020 12:08PM EST [id number] [facility] CTA HEAD WO/W IVCONon 2019 CTA HEAD WO/W IVCON * * *Final Report* * * DATE OF EXAM: Sep 17 2020 12:01PM [facility] 0023 - CTA HEAD WO/W IVCON / PROCEDURE REASON: Ataxia * * * * Physician Interpretation * * * * EXAMINATION: CTA NECK W IVCON, CTA HEAD WO/W IVCON CLINICAL HISTORY: Syncopal episode. TECHNIQUE: Noncontrast CT brain without contrast. Spiral high resolution axial images were obtained through the head, neck and superior mediastinum following bolus administration of intravenous contrast for CT angiography. 3D maximum intensity projection images were created, reviewed and archived . MQ: [id number]_4 Contrast: 80 mL Omnipaque [address] Radiation dose: Integrated Dose-Length Product (DLP) for this visit = 2096 mGy*cm. CT Dose Reduction Employed: No dose reduction techniques were required COMPARISON: CT brain from 04/12/2018. RESULT: BRAIN: Stable evidence of prior scalp surgery overlying the right parietal bone (series 4 images [id number]). There is no evidence of an acute intracranial hemorrhage or infarct. There is no hydrocephalus, midline shift or herniation. No evidence of cortical encephalomalacia. No significant white matter changes. Evaluation of the individual slices of the CTA demonstrates no evidence of an acute stroke. ASPECT Score = 10 Hemorrhage: No evidence of acute intracranial hemorrhage. ECASS hemorrhagic transformation score: Not Applicable Spot Sign Presence: Not Applicable Spot Sign Number: Not Applicable NECK: Tapering Machine Operator (topogram) images: Postop changes of ACDF at the lower cervical spine. Soft tissues: The soft tissue planes are maintained throughout. No evidence of a soft tissue mass in the neck or superior mediastinum. No significant lymphadenopathy is seen. Spine: Alignment is normal. Moderate degenerative changes are present. Lung apices: The visualized lung apices are clear. CT ARTERIOGRAM: Extracranial Circulation: Aortic Arch: There is a normal branching pattern from the aortic arch.. There is no significant stenosis in the proximal brachiocephalic vessels. Carotid Stenosis: Right Common: No significant stenosis. Right Internal Carotid Plaque: No significant plaque formation. Right Internal Carotid Stenosis (% by NASCET Criteria): 0 Left Common: No significant stenosis. Left Internal Carotid Plaque: No significant plaque formation. Left Internal Carotid Stenosis (% by NASCET Criteria): 0 Cervical Vertebral Arteries: Patency: Bilateral. Vertebral artery origins are patent bilaterally. Dominance: Codominant Intracranial Circulation: Anterior Circulation: There appears to be a 3 mm aneurysm at the terminal right ICA segment medial to the origin of the right posterior communicating artery (series 4 image 389). Carotid siphons are otherwise symmetric and normal in appearance. There does appear to be a 3 mm infundibulum associated with origin of left posterior communicating artery (series 4 image 387). The anterior and middle cerebral arteries are normal in caliber without evidence for focal stenosis or aneurysm. Vertebrobasilar Circulation: Intracranial vertebral arteries are patent and codominant. Basilar artery and posterior cerebral arteries are normal in caliber bilaterally. IMPRESSION: 3 mm saccular aneurysm arising from the right terminal ICA segment located medial to the origin the right posterior communicating artery. The intracranial circulation is otherwise normal. No hemodynamically significant stenosis in the neck arteries. Essentially normal noncontrast CT brain. Investigator Operator: [facility] Transcribe Date/Time: Sep 17 2020 11:56A Dictated by : NICO MARTIN MD This examination was interpreted and the report reviewed and electronically signed by: NICO MARTIN MD on Sep 17 2020 12:09PM EST [id number] Normal [facility] CTA NECK W IVCONon 0 CTA NECK W IVCON * * *Final Report* * * DATE OF EXAM: Sep 17 2020 12:01PM [facility] 0024 - CTA NECK W IVCON / PROCEDURE REASON: Carotid sinus syncope * * * * Physician Interpretation * * * * EXAMINATION: CTA NECK W IVCON, CTA HEAD WO/W IVCON CLINICAL HISTORY: Syncopal episode. TECHNIQUE: Noncontrast CT brain without contrast. Spiral high resolution axial images were obtained through the head, neck and superior mediastinum following bolus administration of intravenous contrast for CT angiography. 3D maximum intensity projection images were created, reviewed and archived . MQ: CTAHN_4 Contrast: 80 mL Omnipaque [address] Radiation dose: Integrated Dose-Length Product (DLP) for this visit = 2096 mGy*cm. CT Dose Reduction Employed: No dose reduction techniques were required COMPARISON: CT brain from 04/12/2018. RESULT: BRAIN: Stable evidence of prior scalp surgery overlying the right parietal bone (series 4 images [id number]). There is no evidence of an acute intracranial hemorrhage or infarct. There is no hydrocephalus, midline shift or herniation. No evidence of cortical encephalomalacia. No significant white matter changes. Evaluation of the individual slices of the CTA demonstrates no evidence of an acute stroke. ASPECT Score = 10 Hemorrhage: No evidence of acute intracranial hemorrhage. ECASS hemorrhagic transformation score: Not Applicable Spot Sign Presence: Not Applicable Spot Sign Number: Not Applicable NECK: Tapering Machine Operator (topogram) images: Postop changes of ACDF at the lower cervical spine. Soft tissues: The soft tissue planes are maintained throughout. No evidence of a soft tissue mass in the neck or superior mediastinum. No significant lymphadenopathy is seen. Spine: Alignment is normal. Moderate degenerative changes are present. Lung apices: The visualized lung apices are clear. CT ARTERIOGRAM: Extracranial Circulation: Aortic Arch: There is a normal branching pattern from the aortic arch.. There is no significant stenosis in the proximal brachiocephalic vessels. Carotid Stenosis: Right Common: No significant stenosis. Right Internal Carotid Plaque: No significant plaque formation. Right Internal Carotid Stenosis (% by NASCET Criteria): 0 Left Common: No significant stenosis. Left Internal Carotid Plaque: No significant plaque formation. Left Internal Carotid Stenosis (% by NASCET Criteria): 0 Cervical Vertebral Arteries: Patency: Bilateral. Vertebral artery origins are patent bilaterally. Dominance: Codominant Intracranial Circulation: Anterior Circulation: There appears to be a 3 mm aneurysm at the terminal right ICA segment medial to the origin of the right posterior communicating artery (series 4 image 389). Carotid siphons are otherwise symmetric and normal in appearance. There does appear to be a 3 mm infundibulum associated with origin of left posterior communicating artery (series 4 image 387). The anterior and middle cerebral arteries are normal in caliber without evidence for focal stenosis or aneurysm. Vertebrobasilar Circulation: Intracranial vertebral arteries are patent and codominant. Basilar artery and posterior cerebral arteries are normal in caliber bilaterally. IMPRESSION: 3 mm saccular aneurysm arising from the right terminal ICA segment located medial to the origin the right posterior communicating artery. The intracranial circulation is otherwise normal. No hemodynamically significant stenosis in the neck arteries. Essentially normal noncontrast CT brain. Investigator Operator: ARPIT Transcribe Date/Time: Sep 17 2020 11:56A Dictated by : NICO MARTIN MD This examination was interpreted and the report reviewed and electronically signed by: NICO MARTIN MD on Sep 17 2020 12:09PM EST [id number] [facility] PROGRESSon 09-17-2020 PROGRESS HNO ID: [id number] Author: NIKKIE Brownlee Service: Radiology Author Type: Clinical Automobile Dealer Type: Progress Notes Filed: 09/17/2020 11:40 AM Note Text: Radiology Service Progress Note PATIENT NAME: Alisia Correa DATE OF SERVICE: September 17, 2020 TIME: 11:39 AM PATIENT IDENTITY VERIFICATION COMPLETED USING TWO (2) IDENTIFIERS: Name and Date of confirmed by patient verbally and Name and Date of confirmed by identification band. FALL SCREENING: Has the patient had 2 falls in the last year or 1 fall with injury or currently using an Ambulatory Assistive Device (Walker, Cane, Wheelchair, Crutches, etc.)? Yes, Patient High Risk for Falls What interventions were put in place to prevent falls during this visit? Yellow Falls Risk Wristband Applied, Instructed Patient to Call for Help if Needed, Offered Assistance with Transfers/Clothing, Instructed Patient to Remain Seated (Not on Exam Table) Until Exam, Increased Observations by Caregivers and Escorted to/from Restroom PATIENT GENDER DATA: Male PATIENT RELEVANT IMPLANT DATA REVIEWED: Not Applicable RADIOLOGY DEPARTMENT: CT; Exam(s) Completed: Brain , CTA Brain , CTA Neck and Spine PERIPHERAL IV DATA: Site assessment: Clean,Dry and Intact, Site disposition Discontinued SIGNED BY: NIKKIE Brownlee September 17, 2020 11:39 AM [facility] Kailash 09-11-2020 CNPN Telephone (AVXRPR) ALISIA CORREA ([id number]) 1960 M Date Time Provider Department 09/11/20 MAKI JEONG AVXRPR During your visit today, we recorded the following information about you: Maki Jeong RN 09/11/2020 10:40 AM Signed Called pt and discussed need for blood work prior to scheduled CT scan. Pt understands that he can go to any [facility] lab at his convenience at least the day prior to his scan. States that he will get them drawn. Allergies As of Date: 09/11/2020 Noted Allergy Reaction CELEBREX (CELECOXIB) 06/04/2017 2 - Rash 4 - Hives 8 - GI Upset ERYTHROMYCIN BASE 03/06/2004 4 - Hives 12 - Shortness of Breath AVELOX (MOXIFLOXACIN HCL) 07/20/2006 2 - Rash 4 - Hives 9 - Itching 12 - Shortness of Breath KLONOPIN (CLONAZEPAM) 06/04/2017 9 - Itching LEVAQUIN (LEVOFLOXACIN) 01/29/2010 4 - Hives PIMAVANSERIN 08/23/2020 4 - Hives Date Reviewed: 08/24/2020 Reviewed by: Anne Arias - Fully Assessed Reason for Visit: Future Appointment [256] Prescriptions as of 09/11/2020 Sig: DICLOFENAC SODIUM 75 MG TABLE* diclofenac sodium 75 mg table* ASPIRIN 81 MG TABLET,DELAYED * Take 1 tablet by mouth twice * DOCUSATE SODIUM 100 MG CAPSULE Take 1 capsule by mouth twice* NALOXONE 4 MG/ACTUATION NASAL* Use 1 spray in one nostril as* QUETIAPINE 25 MG TABLET Take 1 tablet by mouth every * PROMETHAZINE 25 MG TABLET 25 mg every 6 hours as needed* CARBIDOPA 25 MG-LEVODOPA 100 * Take 1.5 tablets by mouth fou* Patient taking differently: Take 1 tablet by mouth four t* TOPIRAMATE 200 MG TABLET Take 1 tablet by mouth twice * TOPIRAMATE 100 MG TABLET Take 1 tablet by mouth twice * OXYBUTYNIN CHLORIDE ORAL Take 15 mg by mouth once brayan* TIZANIDINE 4 MG TABLET Take 1 tablet by mouth every * Patient taking differently: Take 6 mg by mouth three time* PREGABALIN 300 MG CAPSULE Take 300 mg by mouth twice da* ONDANSETRON HCL 4 MG TABLET Take 1 tablet by mouth every * METFORMIN 1,000 MG TABLET Take 1,000 mg by mouth twice * LINACLOTIDE 145 MCG CAPSULE Take 145 mcg by mouth once da* ATORVASTATIN 10 MG TABLET Take 10 mg by mouth once brayan* EZETIMIBE 10 MG TABLET Take 10 mg by mouth once brayan* MISOPROSTOL 200 MCG TABLET Take 200 mcg by mouth four ti* UREA 40 % LOTION Apply to affected area twice* CLOTRIMAZOLE-BETAMETHASONE 1 * Apply to affected area twice* HYDROXYZINE HCL 50 MG TABLET Take 100 mg by mouth once carol* BETAMETHASONE, AUGMENTED 0.05* APPLY TO THE AFFECTED AREA(S)* MAGNESIUM HYDROXIDE 400 MG/5 * Take 15 mL by mouth once brayan* BUDESONIDE-FORMOTEROL HFA 160* Inhale 2 Puffs as instructed * DULOXETINE 60 MG CAPSULE,AVEL* Take 1 capsule by mouth once * SUCRALFATE 1 GRAM TABLET Take 1 tablet by mouth four t* CENTRUM SILVER ULTRA MEN'S OR* Take 1 tablet by mouth once d* AMITRIPTYLINE 25 MG TABLET Take 50 mg by mouth daily at * ALBUTEROL SULFATE 1.25 MG/3 M* Use 1 Ampule via nebulizer ev* PRECOSE 25 MG TABLET Take one(1) tablet three(3) t* UROCIT-K 10 10 MEQ (1,080 MG)* Take one(1) tablet three time* Problem List As Of Date 09/11/2020 Noted Resolved SPRAIN OF NECK () [S13.9XXA] 03/06/2004 07/21/2019 CERVICAL SPINAL STENOSIS [M48.02] 03/06/2004 Brachial neuritis or radiculitis [M54.12] 03/06/2004 12/22/2018 THORACIC DISC DISPLACMNT [M51.24] 03/06/2004 Carpal tunnel syndrome [G56.00] 03/06/2004 12/22/2018 SPRAIN OF NECK () [S13.9XXA] 03/06/2004 CERVICAL DISC DISPLACMNT [M50.20] 04/17/2004 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 IMPOTENCE, ORGANIC ORIGN [N52.9] 10/08/2007 Frequency of urination [R35.0] 03/26/2010 Slow Urinary Stream [R39.198] 03/26/2010 Microstomia [Q18.5] 08/09/2010 BPH w urinary obs/LUTS [N40.1] 08/12/2010 Postlaminectomy syndrome of lumbar region [M96.*06/30/2016 Glenohumeral arthritis [M19.019] 07/17/2016 12/22/2018 Primary osteoarthritis of left knee [M17.12] 01/28/2017 Type 2 diabetes mellitus without complication, *04/15/2017 More... Chronic pain syndrome [G89.4] 04/15/2017 More... COPD with chronic bronchitis (HCC) [J44.9] 04/15/2017 More... Arthritis of knee [M17.10] 04/27/2017 Primary osteoarthritis of right knee [M17.11] 05/20/2017 More... OA (osteoarthritis) of knee [M17.10] 07/01/2017 Glenohumeral arthritis, left [M19.012] 10/26/2017 Essential tremor [G25.0] 10/27/2017 More... Asthma [J45.909] 12/07/2017 Diabetes mellitus (HCC) [E11.9] 12/07/2017 More... Essential hypertension [I10] 12/07/2017 More... Hyperlipidemia [E78.5] 12/07/2017 More... Ulcerative lesion [CTR2117] 12/07/2017 07/21/2019 Shoulder arthritis [M19.019] 12/29/2017 Status post replacement of left shoulder joint *02/08/2018 CRPS (complex regional pain syndrome type I) [G*03/16/2018 Nicotine use disorder, F17.2 [F17.200] 03/17/2018 More... Obesity, Class I, BMI 30-34.9 [E66.9] 03/17/2018 Multilevel spine pain [M54.9] 06/02/2018 Iron deficiency anemia secondary to inadequate *06/16/2018 Complete tear of right rotator cuff [M75.121] 08/02/2018 Spinal cord stimulator status [Z96.89] 09/07/2018 More... MGUS (monoclonal gammopathy of unknown signific*09/15/2018 PD (Parkinson's disease) ([facility]) [G20] 04/13/2019 More... 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 Unspecified sleep apnea [G47.30] More... Acute cystitis without hematuria [N30.00] 04/27/2020 More... Osteoarthritis of right hip [M16.11] 05/03/2020 Right foot drop [M21.371] 08/29/2020 Falls frequently [R29.6] 08/29/2020 Multifactorial gait disorder [R26.89] 08/29/2020 Spinal stenosis of lumbar region [M48.061] 08/29/2020 Orthostasis [I95.1] 08/29/2020 Near syncope [R55] 08/29/2020 Spinal stenosis of cervical region [M48.02] 08/29/2020 Encounter Status:Closed by MAKI JEONG on 09/11/[address] [facility] [address] LUMBAR SPINE WO IVCONon 1 [facility] No Panel Informationon 06-21 [facility] [address] THORACIC SPINE WO IVCONon 06-15-2020 [facility] ALLIED HEALTHon 05-04-2020 ALLIED HEALTH HNO ID: [id number] Author: Daniela (Rn) ALFONSO Castro Service: Infection Prevention Author Type: Registered Nurse Type: Allied Health Filed: 05/04/2020 8:19 AM Note Text: ISOLATION NOTE Admission Date: 05/03/2020 Type of Isolation Recommended: Contact Precautions ([place] Isolation Sign) Indication: Carbapenem-resistant Enterobacteriaceae (CRE) Date Isolation Initiated: 05/04/2020 Anticipated Duration of Isolation: Duration of hospitalization Type and Date of Positive Test(s): urine culture 10/18/2019 SIGNATURE: Daniela Castro RN MSN PATIENT NAME: Alisia Correa DATE: May 04, 2020 TIME: 8:17 AM PAGER/CONTACT #: [phone] Normal [facility] Basic Metabolic Panlon 05-04 Anion gap [Moles/Vol] 8 mmol/L Low 9-18 [facility] Calcium [Mass/Vol] 8.4 mg/dL Low 8.5-10.[address] [facility] Chloride [Moles/Vol] 103 mmol/L Normal 97-105 [facility] CO2 [Moles/Vol] 25 mmol/L Normal 22-30 [facility] Creatinine [Mass/Vol] 1.11 mg/dL Normal 0.73-1.22 [facility] eGFR- Amer. >[address] [facility] GFR/1.73 sq M predicted among non-blacks MDRD (S/P/Bld) [Vol rate/Area] mL/min/{1.73_m2} Normal [facility] Comment on above: Result Comment: eGFR (Estimated GFR) Units of measure: mL/min/1.73 meters squared eGFR is derived from the reexpressed MDRD Study equation using the following parameters: serum creatinine, age, gender and race. The creatinine assay has been calibrated to be traceable to IDMS. An eGFR <60 mL/min/1.73m2 for >3 months is consistent with chronic kidney disease. Refer to KDOQI guidelines for clinical interpretation. In patients with unstable renal function, e.g. those with acute kidney injury, the eGFR may not accurately reflect actual GFR. Glucose [Mass/Vol] 100 mg/dL High 74-99 [facility] Comment on above: Result Comment: The [place] Diabetes Association (ADA) provides guidance for cutoff values for fasting glucose and random glucose. The ADA defines fasting as no caloric intake for at least 8 hours. Fasting plasma glucose results between 100 to 125 mg/dL indicate increased risk for diabetes (prediabetes). Fasting plasma glucose results greater than or equal to 126 mg/dL meet the criteria for diagnosis of diabetes. In the absence of unequivocal hyperglycemia, results should be confirmed by repeat testing. In a patient with classic symptoms of hyperglycemia or hyperglycemic crisis, random plasma glucose results greater than or equal to 200 mg/dL meet the criteria for diagnosis of diabetes. Reference: Standards of Medical Care in Diabetes 2016, [place] Diabetes Association. Diabetes Care. 2016.39(Suppl 1). Potassium [Moles/Vol] 4.1 mmol/L Normal 3.7-5.1 [facility] Sodium [Moles/Vol] 136 mmol/L Normal 136-144 [facility] Urea nitrogen [Mass/Vol] 16 mg/dL Normal 9-24 [facility] CASE MANAGEMon 05-04-2020 CASE MANAGEM HNO ID: [id number] Author: Ashley (Rn) ALFONSO Sands Service: Care Management Author Type: Registered Nurse Type: Care Mgt Progress Note Filed: 05/04/2020 11:01 AM Note Text: CARE MANAGEMENT PROGRESS NOTE SERVICE DATE: 05/04/2020 SERVICE TIME: 10:59 AM LOS: 0 days Spoke with Titi at [facility] outpatient PT. Appointment scheduled for Monday 05/07 at 1:30 PM. Patient to arrive 15 minutes early. Patient notified. SIGNATURE: Ashley Sands RN PATIENT NAME: Alisia Correa DATE: May 04, 2020 TIME: 10:59 AM PAGER/CONTACT #: [phone] Normal [facility] CASE MGT INIT [facility] 2019 CASE MGT INIT [facility] HNO ID: [id number] Author: Ashley Nelson) ALFONSO Sands Service: Care Management Author Type: Registered Nurse Type: Care Mgt Initial Assessment Filed: 05/04/2020 10:16 AM Note Text: CARE MANAGEMENT: ASSESSMENT AND DISCHARGE PLAN SERVICE DATE: May 04, 2020 SERVICE TIME: 10:15 AM PRIMARY CARE PHYSICIAN: Ellen Crabtree DO ADMISSION STATUS: Extended Recovery MEDICAL: [employer] MEDICARE PPO Patient/Dealer Account Manager 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 Last discharge within 30 days: No Advance Directive: Current Advance Directive: Health Care Power of Corrections Unit Supervisor;Living Will In Chart: No Shipping Supervisor Attempted to Assist with AD Completion: Yes Action: Education Provided Health LiteracyHow often do you need to have someone help you when you read instructions, pamphlets, or other written material from your doctor or pharmacy? : 1 - Never How confident are you filling out medical forms by yourself?: 1 - Extremely If Patient scores > 3 on either question, the following interventions were put into place:: Patient did not score > 3 on either question. Baseline Mental Status Prior to this Illness what was the patient's Baseline Mental Status?: Alert AND Oriented Prior to this illness, has anyone described the patient having any of the following behaviors?: Not Applicable Relationship of the informant to the patient:: Self Functional Status: Independent Does Patient Currently Receive Any Community Services or Home Care?: None Equipment Prior to Admission: Tub bench/chair;Walker;Elevated toilet seat;Cane SOCIAL: Living Arrangements: Home Lives With: Spouse Financial Resources: RetiredPrimary Contact: Extended Emergency Contact Information Primary Emergency Contact: Dipti Correa Address: [address] [place] [address] Mobile Relation: Spouse Supportive Patient Contact:: Yes Contact Resources: Family Social Needs Food insecurity Worry: Never true Inability: Never true Resources Needed: No Social Needs Financial resource strain: Not very hard Social Needs Transportation needs Medical: No Non-medical: No Caregiver AssessmentCaregiver is ready, willing and able to meet the patient's needs as recommended by the inter-professional team:: No Caregiver needed Does the patient have an acute stroke diagnosis, or has the patient had a stroke during this admission?: No Patient's transition needs and plan for meeting these needs: Outpatient therapy at [facility] Patient's perception of need for this admission: hip replacement Medication Adherance I am convinced of the importance of my prescription medication: 0 - Agree Completely I worry that my prescription medication will do more harm than good to me : 0 - Disagree Completely I feel financially burdened by my vee-he-iucffl expenses for my prescription medication:: 0 - Disagree Completely Risk Score: 0 Patient is categorized as: Low risk < 2 Are you interested in bedside delivery of your medications? Yes Is Patient Psychosocially Complex?: No ASSESSMENT AND PLAN: Medical Needs: Medical Needs: None Psychosocial Needs: Psychosocial Needs: None FREEDOM OF CHOICE EXPLAINED: [place] of Choice Given: No Reason Not Given: No placements necessary POTENTIAL TRANSITION PLANS Outpatient Therapy Pt from home with spouse. Plan is Outpatient PT at [facility]. Patient does not have an appointment. Call placed to [facility] to schedule appointment. Waiting for return call. SIGNATURE: Ashley Sands RN PATIENT NAME: Alisia Correa DATE: May 04, 2020 TIME: 10:14 AM PAGER/CONTACT #: [phone] Normal [facility] CBCon 05-04-2020 [facility] nRBC <0.01 [facility] width (RBC) [Ratio] 14.1 % Normal 11.5-15.0 [facility] Hematocrit (Bld) [Volume fraction] 39.3 % Normal 39.0-51.0 [facility] Hemoglobin (Bld) [Mass/Vol] 12.6 g/dL Low 13.0-17.0 [facility] MCH (RBC) [Entitic mass] 30.1 pG Normal 26.0-34.0 [facility] MCHC (RBC) [Mass/Vol] 32.1 g/dL Normal 30.5-36.0 [facility] MCV (RBC) [Entitic vol] 94.0 fL Normal 80.0-100.0 [facility] Platelet mean volume (Bld) [Entitic vol] 12.8 fL High 9.0-12.7 [facility] Platelets (Bld) [#/Vol] 134 10*3/uL Low 150-400 [facility] RBC (Bld) [#/Vol] 4.18 10*6/uL Low 4.20-6.00 [facility] WBC (Bld) [#/Vol] 7.60 10*3/uL Normal 3.70-11.00 [facility] NURSING PROGon 05-04-2020 NURSING PROG HNO ID: [id number] Author: Renae (Rn) ALFONSO Greco Service: ? Author Type: Registered Nurse Type: Nursing Progress Note Filed: 05/04/2020 8:04 PM Note Text: Nursing Progress Note Patient Name: Alisia Correa Patient Location: / Daily Note: 1000 Pt awake oriented this am. Dressing to right hip dry and intact, denies numbness or tingling, bilateral ppp, Denies cp/sob/nausea. 1600 Discharge orders given to pt. Follow up appt scheduled, IV was removed, scripts filled by bedside pharmacy and given to pt. Discussed s/s of infection, dvt prevention, bleeding precautions, wound care and medications. No other questions at this time. 1640 Pt left floor via wheelchair in stable condition to home with out patient therapy scheduled. This note was completed by: Renae Greco RN Normal [facility] PLAN OF CAREon 05-04-2020 PLAN OF CARE HNO ID: [id number] Author: Rita Arias (Airline Pilot Flight Instructor) Service: ? Author Type: ? Type: Plan of Care Filed: 05/04/2020 4:29 PM Note Text: The following medications were delivered to the patient: Medication List START taking these medications naloxone 4 mg/actuation nasal spray Use 1 spray in one nostril as needed for overdose. May repeat every 2 to 3 min in alternating nostrils until medical assistance is available X oxyCODONE IR 5 mg immediate release tablet Commonly known as: ROXICODONE Take 1-2 tablets by mouth every 4 hours as needed for pain for up to 5 days. CHANGE how you take these medications carbidopa-levodopa 25-100 mg per tablet Commonly known as: SINEMET Take 1.5 tablets by mouth four times daily. What changed: how much to take sucralfate 1 gram tablet Commonly known as: CARAFATE Take 1 tablet by mouth four times daily. What changed: ? when to take this ? reasons to take this ? additional instructions CONTINUE taking these medications Albuterol Sulfate 1.25 mg/3 mL nebulizer solution amitriptyline 25 mg tablet Commonly known as: ELAVIL aspirin, enteric coated 81 mg EC tablet Commonly known as: ASPIRIN, ENTERIC COATED Take 1 tablet by mouth twice daily. atorvastatin 10 mg tablet Commonly known as: LIPITOR Aug Betamethasone Dipropionate 0.05 % ointment Commonly known as: DIPROLENE budesonide-formoterol 160-4.5 mcg/actuation inhaler Commonly known as: SYMBICORT Inhale 2 Puffs as instructed twice daily. CENTRUM SILVER ULTRA MEN'S ORAL CYTOTEC 200 mcg tablet Generic drug: miSOPROStol docusate sodium 100 mg capsule Commonly known as: COLACE Take 1 capsule by mouth twice daily. DULoxetine 60 mg capsule Commonly known as: CYMBALTA Take 1 capsule by mouth once daily. ezetimibe 10 mg tablet Commonly known as: ZETIA hydrOXYzine HCl 50 mg tablet Commonly known as: ATARAX LINZESS 145 mcg capsule Generic drug: linaclotide LOTRISONE cream Generic drug: clotrimazole-betamethasone LYRICA 300 mg capsule Generic drug: pregabalin magnesium hydroxide 400 mg/5 mL suspension Commonly known as: MILK OF MAGNESIA Take 15 mL by mouth once daily as needed. Take if no BM > 48 hrs. metFORMIN 1,000 mg tablet Commonly known as: GLUCOPHAGE ondansetron 4 mg tablet Commonly known as: ZOFRAN Take 1 tablet by mouth every 8 hours as needed. OXYBUTYNIN CHLORIDE ORAL PRECOSE 25 mg tablet Generic drug: acarbose Take one(1) tablet three(3) times daily. promethazine 25 mg tablet Commonly known as: PHENERGAN QUEtiapine 25 mg tablet Commonly known as: SEROqueL Take 1 tablet by mouth every evening. sulfamethoxazole-trimethoprim 800-160 mg per tablet Commonly known as: BACTRIM DS Take 1 tablet by mouth twice daily for 7 days. tiZANidine 4 mg tablet Commonly known as: ZANAFLEX Take 1 tablet by mouth every 8 hours as needed. TAKES 2 TAB AT HS * topiramate 200 mg tablet Commonly known as: TOPAMAX Take 1 tablet by mouth twice daily. * topiramate 100 mg tablet Commonly known as: TOPAMAX Take 1 tablet by mouth twice daily. urea 40 % Lotn Commonly known as: CARMOL UROCIT-K 10 10 mEq (1,080 mg) Generic drug: potassium citrate ER * This list has 2 medication(s) that are the same as other medications prescribed for you. Read the directions carefully, and ask your doctor or other care provider to review them with you. You might also be taking other medications not listed above. If you have questions about any of your other medications, talk to the person who prescribed them or your Primary Care Provider. STOP taking these medications acetaminophen 325 mg tablet Commonly known as: TYLENOL diclofenac (EC) 75 mg EC tablet Commonly known as: VOLTAREN mupirocin 2 % ointment Commonly known as: BACTROBAN Rita Arias (Airline Pilot Flight Instructor) PAGER: yvan May 04, 2020 4:29 PM [facility] PROGRESSon 05-04-2020 PROGRESS HNO ID: [id number] Author: Steven Guevara Jr. Service: Orthopaedic Surgery Author Type: Physician Type: Progress Notes Filed: 05/04/2020 7:55 AM Note Text: ORTHOPAEDIC POSTOP PROGRESS NOTE SERVICE DATE: 05/04/2020 SERVICE TIME: 7:54 AM Subjective Patient states that they are comfortable Well Controlled hip pain. Mild incisional pain. Objective VITAL SIGNS: BP 109/61 Pulse 65 Temp 36.5 ?C (97.7 ?F) (Oral) Resp 16 Ht 180.3 cm (5' 10.98 ) Wt 107 kg (236 lb) SpO2 97% BMI 32.93 kg/m? INTAKE AND OUTPUT: Intake/Output Summary (Last 24 hours) at 05/04/2020 0754 Last data filed at 05/04/2020 0700 Gross per 24 hour Intake 4120 ml Output 1100 ml Net 3020 ml PHYSICAL EXAMINATION: Right Lower Extremity: Dorsalis pedis pulses palpable. Posterior tibial pulses palpable. Dorsi flexion 5/5. Plantar flexion 5/5. Extensor hallucis extension: 5/5. Sensory intact to light touch L1-S1. Dressing clean, dry and intact. Surgical site no drainage and Aquacell intact. Problem Review and Assessment: Patient monitored, no new events overnight. LABS: Recent Labs 05/04/20 0420 05/03/20 1635 HB 12.6* 14.3 HCT 39.3 43.9 DATA: Diagnostic tests reviewed for today's visit: Most recent labs and imaging results. Assessment/Plan S/P Procedure(s) (LRB): ARTHROPLASTY REPLACE JOINT TOTAL HIP (Right) on 05/03/2020 POSTOP PLAN: Physical Therapy evaluation Pain control Case Management for discharge planning DISCHARGE HOME TODAY Patient underwent major orthopedic surgery with joint replacement and will require more than allocated 30MED for acute pain management. 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 Frequency of Urination Slow Urinary Stream Microstomia Hypertrophy of Prostate With Urinary Obstruction and Other Lower Urinary Tract Symptoms (Luts) Postlaminectomy Syndrome of Lumbar Region Primary Osteoarthritis of Left Knee Type 2 Diabetes Mellitus Without Complication, Without Long-Term Current Use of Insulin (Hcc) Chronic Pain Syndrome Copd With Chronic Bronchitis (Hcc) Arthritis of Knee Primary Osteoarthritis of Right Knee Oa (Osteoarthritis) of Knee Glenohumeral Arthritis, Left Essential Tremor Asthma Diabetes Mellitus (Hcc) Essential Hypertension Hyperlipidemia Shoulder Arthritis Status Post Replacement of Left Shoulder Joint Crps (Complex Regional Pain Syndrome Type I) Nicotine use disorder, F17.2 Obesity, Class I, Bmi 30-34.9 Multilevel Spine Pain Iron Deficiency Anemia Secondary to Inadequate Dietary Iron Intake Complete Tear of Right Rotator Cuff Spinal Cord Stimulator Status Mgus (Monoclonal Gammopathy of Unknown Significance) Pd (Parkinson's Disease) (Hcc) Dysphagia Psychosis Due to Parkinson's Disease ([facility]) Osteoarthritis of Left Hip Open Wound of Left Heel Megaloblastic Anemia Due to Vitamin B12 Deficiency Tobacco Use Unspecified Sleep Apnea Acute Cystitis Without Hematuria Osteoarthritis of Right Hip Medication and Non-Pharmacologic VTE Prophylaxis/Anticoagulants Anticoagulant AND Antiplatelet Medications (From admission, onward) Start Dose Route Frequency Ordered Stop 05/04/20 0900 aspirin, enteric coated 81 mg tab(s) (Surgical Risk Categories ) 81 mg ORAL 2 TIMES DAILY 05/03/20 1751 -- 05/03/20 1800 pneumatic compression stockings (ri,oh) 05/03/20 1800 graduated compression stockings ([place], [place]) 05/03/20 1800 activity - mobilize patient ([place]) 05/03/20 1800 activity - mobilize patient (ri,ms) 05/03/20 1800 activity - mobilize patient (ri,ms) VTE Prophylaxis: VTE prophylaxis appropriate POST OPERATIVE COMPLICATIONS: Complicated by: uneventful/none SIGNATURE: Steven Guevara Jr, MD PATIENT NAME: Alisia Correa DATE: May 04, 2020 TIME: 7:54 AM PAGER/CONTACT #: ETX#[phone] [facility] THERAPY NTon 05-04-2020 THERAPY NT HNO ID: [id number] Author: Nusrat (Ot/Kali Gallegos Service: Occupational Therapy Author Type: Occupational Therapist Type: Therapy (PT/OT/Speech/Resp) Filed: 05/04/2020 1:20 PM Note Text: Occupational Therapy SERVICE DATE: 05/04/2020 SERVICE TIME: 1145 to 1251 ROOM: [place] [address] Recommended Discharge Disposition: Home Anticipated Discharge Needs: Physical Assist at Home Physical Assist at Home for: Cleaning;Laundry;Self Care;Transportation;Shopping Recommended Discharge Equipment: (Patient has ADL kit) OT 6 Clicks Score: 24 Precautions/Activity Restrictions: Total Hip Replacement;Fall Risk;Lines/Tubes/Drains Total Hip Replacement Precautions: Lateral ASSESSMENT: Patient pleasant and cooperative and receptive to therapy. Pt. Moving well during session. Pt. Did not require any physical assist with self care tasks or functional transfers/mobility. Patient demonstrated good carryover with use of AE for lower body dressing and has ADL kit at home. Pt. Will have support upon DC. Pt. Denies any homegoing concerns at this time. Instructed pt to ambulate once every hour when awake. Pt. Is safe and cleared from OT standpoint to go home, when cleared by medical. Patient Disposition at Start of Session: Supine in Bed;Call Umana in Reach Patient Disposition at End of Session: OOB in Chair;Call Umana in Reach Tolerated Full Session Patient /Caregiver Goals: Go Home Goals for Plan of Care: Patient able to demonstrate good carryover with use of AE for lower body dressing/bathing PLAN: Treatment Frequency (times per week): Discontinue Therapy Services Reasons Therapy Services Discontinued: No skilled needs Plan of Care developed with: Patient TREATMENT INTERVENTIONS: Therapy Diagnosis: Reduced mobility-other;Decreased activities of daily living (ADL) Interventions Provided: Evaluation;Self Snf Management (74863) $ Evaluation-Low (10307) Billed Units: 1 unit Self Snf Management (46210) Treatment Minutes: 51 3 units Skilled Intervention(s): Provided instruction, cuing and facilitation for Upper Body Dressing with cues for safety including to sit down to complete as Patient may become unsteady and loose balance while pulling shirt over head. Provided instruction, cuing and facilitation for Lower Body Dressing with cues for technique of donning clothing onto the surgical lower extremity first and to doff last. Instructed to wear shoes/slippers/socks over jacqueline hose to prevent slipping. Provided instruction, cuing and facilitation for bathing with a long handled sponge. Issued handout with AE and DME along with recommendations (joint booklet issued in earlier PT session) Instructed/facilitated provided verbal and tactile cues for transitioning from sitting to standing to allow for clothing management, personal hygiene, skin/incision care/observation. Requires SBA/supervision physical assist. Patient completed multiple commode/toilet transfers with SBA with RW Patient was educated on allowing the body to become acclimated to change in positions (supine to sit) before changing positions again (sit to stand) in order to increase safety and independence with task completion and to decrease risk of falling. Educated patient on safe house hold mobility and light meal prep. Recommended home modifications for safety, including removal of throw rugs, clear pathways, and pre-positioning items for easy access. Patient instructed to not carry items in hands while using walker (use walker bag or basket), and placement of hands on stable surface such as counter-top when reaching. Patient instructed on non-pharmacological pain control techniques including using ice on for 20 minutes and off for 20 minutes at a time, breathing and relaxation techniques. Verbally instructed a car transfer with instructions given to have cab driver (as Patient is not allowed to drive) put front passenger seat pushed back into the furthest position as well as to recline seat in furthest position to allow for safe transfer. Education provided for role of Occupational Therapy including Plan Of Care and for discharge planning. ? Education provided to call for assistance when needing to get up with call umana and phone within patients reach. Total Timed Code Treatment Minutes: 51 Total Treatment Time (minutes): 51 SUBJECTIVE: Current Hospital Course: Chart reviewed; R hip THR; WBAT Reason for Occupational Therapy Consult: Patient s/p R THR Relevant Past Medical History: DM, COPD, Parkinson's, HLD, Spinal stenosis, DM, chornic pain syndrome, asthma, essential HTN, spinal cord stimulator, open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 8 hours as needed., Disp: 10 tablet, Rfl: 0, Unknown at Unknown time linaclotide (LINZESS) 145 mcg cap, Take 145 mcg by mouth once daily., Disp: , Rfl: , Unknown at Unknown time atorvastatin (LIPITOR) 10 mg tablet, Take 10 mg by mouth once daily., Disp: , Rfl: , Unknown at Unknown time ezetimibe (ZETIA) 10 mg tablet, Take 10 mg by mouth once daily., Disp: , Rfl: , Unknown at Unknown time miSOPROStol (CYTOTEC) 200 mcg tablet, Take 200 mcg by mouth four times daily. Only Takes when needed for stomach upset , Disp: , Rfl: , Unknown at Unknown time urea (CARMOL) 40 % lotn, Apply to affected area twice daily., Disp: , Rfl: clotrimazole-betamethasone (LOTRISONE) cream, Apply to affected area twice daily., Disp: , Rfl: , Unknown at Unknown time hydrOXYzine HCl (ATARAX) 50 mg tablet, Take 100 mg by mouth once daily. , Disp: , Rfl: , Unknown at Unknown time Aug Betamethasone Dipropionate (DIPROLENE) 0.05 % ointment, APPLY TO THE AFFECTED AREA(S) ONCE DAILY, Disp: , Rfl: 1, Unknown at Unknown time magnesium hydroxide (MILK OF MAGNESIA) 400 mg/5 mL suspension, Take 15 mL by mouth once daily as needed. Take if no BM > 48 hrs., Disp: 120 mL, Rfl: 0, Unknown at Unknown time DULoxetine (CYMBALTA) 60 mg capsule, Take 1 capsule by mouth once daily., Disp: , Rfl: 0, Unknown at Unknown time sucralfate (CARAFATE) 1 gram tablet, Take 1 tablet by mouth four times daily. (Patient taking differently: Take 1 g by mouth four times daily as needed. Takes only when has stomach upset ), Disp: , Rfl: 0, Unknown at Unknown time MULTIVIT-MIN/FA/LYCOPEN/LUTEI N (CENTRUM SILVER ULTRA MEN'S ORAL), Take 1 tablet by mouth once daily., Disp: , Rfl: , Unknown at Unknown time amitriptyline 25 mg ORAL tablet, Take 50 mg by mouth daily at bedtime. TAKES 2 50 MG AT HS , Disp: , Rfl: 0, 04/29/2020 acarbose(PRECOSE 25 MG TAB), Take one(1) tablet three(3) times daily., Disp: 1 month supply, Rfl: 3, Unknown at Unknown time potassium citrate (UROCIT-K 10) 10 mEq ORAL TbSR, Take one(1) tablet three times daily., Disp: , Rfl: 0, Unknown at Unknown time Current Facility-Administered Medications Medication Dose Route Frequency - miSOPROStol 200 mcg tab(s) (CYTOTEC) 200 mcg ORAL QID - sucralfate 1 g tab(s) (CARAFATE) 1 g ORAL QID PRN - pregabalin 300 mg cap(s) (LYRICA) 300 mg ORAL BID - topiramate 100 mg tab(s) (TOPAMAX) 100 mg ORAL BID - hydrOXYzine HCl 100 mg tab(s) (ATARAX) 100 mg ORAL DAILY - atorvastatin 10 mg tab(s) (LIPITOR) 10 mg ORAL DAILY - carbidopa-levodopa 25-100 mg 1.5 tablet (SINEMET 25-100) 1.5 tablet ORAL QID - QUEtiapine 25 mg tab(s) (SEROquel) 25 mg ORAL AT BEDTIME - albuterol 2.5 mg /3 mL (0.083 %) 2.5 mg (PROVENTIL) 3 mL INHALATION q 6 H PRN - [START ON 05/04/2020] fluticasone-vilanterol 100-25 mcg/dose 1 Inhalation (BREO ELLIPTA) 1 Inhalation INHALATION DAILY - linaclotide 145 mcg cap(s) (LINZESS) 145 mcg ORAL DAILY - ezetimibe 10 mg tab(s) (ZETIA) 10 mg ORAL DAILY - DULoxetine 60 mg cap(s) (CYMBALTA) 60 mg ORAL DAILY - amitriptyline 50 mg tab(s) (ELAVIL) 50 mg ORAL AT BEDTIME - potassium citrate ER 1,080 mg tab(s) (UROCIT-K) 1,080 mg ORAL TID - lactated ringers infusion 100 mL/hr INTRAVENOUS CONTINUOUS - NaCl 0.9% 2-10 mL 2-10 mL INTRAVENOUS q 12 H - morphine 2-4 mg injection 2-4 mg INTRAVENOUS q 3 H PRN - acetaminophen 650 mg tab(s) (TYLENOL) 650 mg ORAL q 8 H - [START ON 05/04/2020] magnesium hydroxide 400 mg/5 mL 30 mL (MOM) 30 mL ORAL DAILY PRN - [START ON 05/05/2020] bisacodyl EC 10 mg tab(s) (DULCOLAX) 10 mg ORAL DAILY - aluminum-magnesium hydroxide-simethicone 200-200-20 mg/5 mL 30 mL (MAALOX,MYLANTA,MAG-AL PLUS) 30 mL ORAL q 2 H PRN - [START ON 05/04/2020] ascorbic acid (vitamin C) 500 mg tab(s) (VITAMIN C) 500 mg ORAL BID w MEALS - [START ON 05/04/2020] docusate sodium 100 mg cap(s) (COLACE) 100 mg ORAL BID - ceFAZolin iv piggyback 2 g in D5W (iso-osmotic) 100 mL (ANCEF) 2 g INTRAVENOUS q 8 H - [START ON 05/04/2020] aspirin, enteric coated 81 mg tab(s) 81 mg ORAL BID - oxyCODONE IR 5-10 mg tab(s) (ROXICODONE) 5-10 mg ORAL q 4 H PRN . ALLERGIES Allergen Reactions - Celebrex [Celecoxib] Rash, Hives, GI Upset - Erythromycin Base Hives, Shortness of Breath - Avelox [Moxifloxaci* Rash, Hives, Itching, Shortness of Breath - Klonopin [Clonazepa* Itching - Levaquin [Levofloxa* Hives REVIEW OF SYSTEMS: Objective GENERAL: denies any appetite or weight loss or fever HEENT: negative for headache, no change in hearing or vision, no nose bleed or other nasal problems NECK: negative for neck swelling , goiter, pain CV: no chest pain,palpitations, dizzyness, presyncopal or syncopal episode LUNGS: no cough, SOB, upper respiratory tract symptoms , hemoptysis, COPD, wheezing ABDOMEN: no nausea, vomiting, abdominal pain, diarrhea, blood in stools : negative for dysuria, frequency, incontinence NEURO: No headache,double vision , blurry vision, numbness , tingling , weakness anywhere, no difficulty walking , seizures, tremors Musculoskeletal: negative for joint pain, swelling EXT: No pain or swelling or redness SKIN: No rashes, bruises, ulcers, dryness HEME: No bleeding, bruising. PSYCH: Normal affect and mood. PHYSICAL EXAM: BP 103/61 Pulse 70 Temp (Src) 97.3 (Oral) Resp 15 Ht 5' 10.98 (1.80m) Wt 236 lb (107.0kg) SpO2 96% BMI 32.93 kg/(m2). O2 Therapy: Room Air, Liters: 2 Physical Exam Performed: GENERAL: Alert, no distress, cooperative LUNGS: Lungs clear to auscultation, Good diaphragmatic excursion CARDIAC: Normal S1 and S2; no rubs, murmurs, or gallops ABDOMEN: Abdomen soft, non-tender, BS normal, No masses or organomegaly EXTREMITIES: Normal exam of the extremities, rigt hip surgical dressing present NEURO: Grossly normal cognition, motor function, and cranial nerves III-XII Lines, Drains, and Airways Line Peripheral Right Hand 20 Gauge -- days Reviewed drains and needs to be continued: . DATA: Diagnostic tests reviewed for today's visit: Most recent labs and imaging results. Impression/Recommendations Principal Problem: Osteoarthritis of right hip POA: Yes Assessment AND Plan: Status post right total hip replacement Postop surgical, DVT prophylaxis and pain management per primary orthopedic team. Active Problems: Type 2 diabetes mellitus without complication, without long-term current use of insulin (HCC) POA: Yes Assessment AND Plan: Hold oral medication while in the hospital Start insulin sliding scale for consistent diet Okay to resume home medication on discharge, follow-up with PCP after discharge. COPD with chronic bronchitis (HCC) POA: Yes Assessment AND Plan: Stable, not in exacerbation Continue nebs Essential hypertension POA: Yes Assessment AND Plan: Stable Does not take any medications Follow-up with PCP Hyperlipidemia POA: Yes Assessment AND Plan: Stable, continue home medication Unspecified sleep apnea POA: Yes Assessment AND Plan: continue CPAP Chronic pain syndrome POA Assessment: lower back pain s/p SCS Monitored by Pain Management Tobacco use Assessment: 60 pack years Currently 1/2 pack day since 01/2020 Cessation with strategies encouraged. Hx of Parkinsonism (POA Continue home meds Hx of GERD Continue home meds ? Resolved Problems: * No resolved hospital problems. * VTE PROPHYLAXIS: As per primary team Disposition: To be determined Plan of care discussed with: Patient and RN SIGNATURE: Henry Collins MD PATIENT NAME: Alisia Correa DATE: May 03, 2020 TIME: 7:44 PM PAGER/CONTACT #: [facility] NURSING PROGon 05-03-2020 NURSING PROG HNO ID: [id number] Author: Renae JerryRn) ALFONSO Greco Service: ? Author Type: Registered Nurse Type: Nursing Progress Note Filed: 05/03/2020 7:58 PM Note Text: Nursing Progress Note Patient Name: Alisia Correa Patient Location: -[id number] Daily Note: Received pt from PACU in stable condition at 1745. Bilateral ppp, toes warm and mobile, denies numbness or tingling, Abductor pillow in place. Vitals stable. Will monitor. This note was completed by: Renae Greco RN [facility] OPERATIVE NOon 05-03-2020 OPERATIVE NO HNO ID: [id number] Author: Steven Guevara Jr. Service: Orthopaedic Surgery Author Type: Physician Type: Operative Report Filed: 05/03/2020 3:08 PM Note Text: [facility] OPERATIVE REPORT PATIENT NAME: Alisia Correa AGE: [age] year old LOG ID: [id number] Surgery Date: 05/03/2020 SURGEON: Steven Guevara M.D. SLEEVE TURNER: Vj Jorge PA-C, his assistance consisted of assistance with retraction, positioning and closing of the wound No resident physicians were available to participate in the case. PROCEDURE: Right TOTAL HIP REPLACEMENT-DIRECT LATERAL Procedure(s) (LRB): ARTHROPLASTY REPLACE JOINT TOTAL HIP (Right) Anesthesia: General Preop Diagnosis: Pre-Op Diagnosis Codes: * Osteoarthritis of right hip [M16.11] Postop Diagnosis: Same as Pre-Op Diagnosis Codes: * Osteoarthritis of right hip [M16.11] BMI: Estimated body mass index is 33.91 kg/m? as calculated from the following: Height as of this encounter: 180.3 cm (5' 10.98 ). Weight as of this encounter: 110.2 kg (243 lb). OPERATIVE INDICATIONS: This is a 59 year old male with osteoarthritis of the right hip. Nonoperative management has been exhausted. The decision was made to proceed with a total hip arthroplasty. Risks, benefits, and alternatives were discussed. He expressed understanding and consented to the procedure as outlined above. The patient was seen by [facility] Internal Medicine for pre-operative optimization. Charley-operative blood management and the potential for blood transfusion were discussed with risks and options clearly outlined. The patient has consented to the use of banked allogenic blood if medically necessary. IMPLANTS: [employer] Total Hip System SIZE TYPE Acetabulum 56 mm Trident 2 Screws Metal Liner 46 mm Neutral Femur 7 lateralized Accolade 2 Femoral Head, Inner 28+4 mm Ceramic Femoral Head, Outer 46 mm Polyethylene OPERATIVE FINDINGS: Severe osteoarthritis of the Right hip OPERATIVE PROCEDURE: The patient was identified and brought into the Operating Room by the anesthesia and nursing team. Anesthesia was successfully performed. The patient was then positioned lateral decubitus on the operating room table with the Right hip facing up . Intravenous antibiotic prophylaxis dosing was confirmed. The Rightlower extremity was then prepped and draped in the usual sterile fashion with Chloraprep scrub. A surgical time-out was performed immediately preceding the incision with all personnel in the operating room; the patient identity was again confirmed, the surgical site and extremity were identified and confirmed, X-rays were reviewed, and availability of the appropriate surgical equipment was established. Direct lateral approach to the hip was undertaken. Sharp dissection was carried out through skin and subcutaneous tissue down to the level of the IT band. The IT band was split in line with the skin incision. A portion of the gluteus medius was released from the greater trochanter. The gluteus minimus was released from the greater trochanter and tagged with suture. Anterior capsulectomy was then performed. The hip was dislocated. Proximal femoral osteotomy was performed. The box sealing machine feeder osteotome was utilized to lateralize the starting point of proximal femur. The canal finder was inserted and sequential broaching was performed up to an 7 which provided external rotational stability. Retractors were then placed around the acetabulum. Remainder of the anterior capsule and the labrum was excised. Reaming began at 52 and increased sequentially to a 56 to accommodate a 56 acetabulum. A 56 acetabulum was impacted in place with assistance from the external alignment guide. Excellent rim fit was obtained. The liner was then impacted into the cup. A lateral neck and a 46 +4 head was then tried. The hip was reduced. It was taken through range of motion and was very stable. No tendency towards dislocation or impingement. The limb lengths were closely reapproximated, so the decision was made to use these size components. The hip was dislocated. All trial components were removed from the femur. The pain cocktail was injected into the soft tissues. The stem was then impacted into the femur. Excellent fit was obtained. The heads were assembled on the back table.The inner head was then impacted onto the neck, thereby engaging the taper. The hip was reduced. It continued to track well. The decision was made to proceed with closure. The wound was copiously irrigated out with normal saline with the pulse lavage. Instrument and sponge count was completed and confirmed correct. The gluteus minimus was reapproximated to the greater trochanter with 1 Ethibond suture. The gluteus medius was reapproximated to the greater trochanter with 1 Ethibond suture. The deep subcutaneous tissue was closed with a running 1-0 Vicryl suture. The subcutaneous tissue was closed with an interrupted 2-0 Vicryl suture. The skin was closed with a running 4-0 Monocryl. Exofin skin glue was applied and when completely dry, the sterile Aquacel silver impregnated dressing was applied. The patient was stable to PACU. POSTOPERATIVE MANAGEMENT: Patient is weightbearing as tolerated. They will receive 325 mg aspirin BID x 6 weeks for DVT prophylaxis, appropriate pain medications and 24 hours of appropriate antibiotic for infection prophylaxis. SPECIMENS: The femoral head, neck and synovium. PAIN COCKTAIL: 50cc of 0.25% Marcaine without epinephrine, 20cc of Exparel 266 mg, 1 cc of Morphine (10mg), 1 cc Toradol (30mg) injected into the periosteum and soft tissues EBL: 300 cc DRAINS: None. COUNTS: Correct. COMPLICATIONS: None. Operative Time: * Missing case tracking time(s) * Incision Start: 1:41 PM Incision Stop: [id number] SIGNATURE: Steven Guevara Jr, MD DATE: May 03, 2020 TIME: 2:57 PM [facility] PROGRESSon 05-03-2020 PROGRESS HNO ID: [id number] Author: Tracey Khan (Rt) Service: Radiology Author Type: Automobile Dealer Type: Progress Notes Filed: 05/03/2020 4:01 PM Note Text: Radiology Service Progress Note PATIENT NAME: Alisia Correa DATE OF SERVICE: May 03, 2020 TIME: 4:01 PM PATIENT IDENTITY VERIFICATION COMPLETED USING TWO (2) IDENTIFIERS: Name and Date of confirmed by patient verbally. FALL SCREENING: Has the patient had 2 falls in the last year or 1 fall with injury or currently using an Ambulatory Assistive Device (Walker, Cane, Wheelchair, Crutches, etc.)? No PATIENT GENDER DATA: Male PATIENT RELEVANT IMPLANT DATA REVIEWED: Not Applicable RADIOLOGY DEPARTMENT: General X-ray: Exam(s) Completed: Pelvis X-Ray: Pelvis General AP PERIPHERAL IV DATA: Not applicable SIGNED BY: RT Kathy May 03, 2020 4:01 PM [facility] PROGRESS HNO ID: [id number] Author: Steven Guevara Jr. Service: Orthopaedic Surgery Author Type: Physician Type: Progress Notes Filed: 05/03/2020 8:02 AM Note Text: The patient was offered a surgery/procedure at a [facility]. The surgeon/proceduralist and patient have discussed in detail the risk of exposure to and/or potential harm posed by the COVID-19 virus with having a surgery/procedure at this time versus the risk of delaying the surgery/procedure. It is not possible to know either the risk of delaying the surgery or procedure or chance of getting an infection with perfect accuracy, but a joint decision was made between the patient and the surgeon/proceduralist to proceed at this time with the scheduled surgery/procedure as indicated on the consent form. [facility] PT EDon 05-03-2020 PT ED HNO ID: [id number] Author: Kaylee JerryRn) ALFONSO Sunshine Service: ? Author Type: Registered Nurse Type: Patient Education Filed: 05/03/2020 11:02 AM Note Text: PRE OP LEARNING ASSESSMENT PROCEDURE/SURGERY: SURGERY READINESS TO LEARN COGNITIVE ABILITY: Alert and oriented MOTIVATION TO LEARN: Interested FAMILY SUPPORT: Unable to assess - Family not present PATIENT LEARNS BEST BY: Individual Instruction Verbal Instruction FACTORS AFFECTING LEARNING: None PHYSICAL LIMITATIONS AFFECTING LEARNING: None [facility] SURGICAL PATHOLOGYon 020 SURGICAL PATHOLOGY Specimen originated from [facility] Specimen #: [id number] Submitting Physician: STEVEN GUEVARA JR, MD FINAL DIAGNOSIS Femoral head, right, arthroplasty - Degenerative joint disease. OSWALDO/KELVIN/heidi 05/08/2020 Billy Her MD (Electronic Signature) SPECIMEN SUBMITTED A: RIGHT HIP, BONE AND SOFT TISSUE CLINICAL DATA None provided. GROSS DESCRIPTION A. Received in formalin labeled bone, soft tissue, right hip is a femoral head measuring 5.5 x 5.0 x 4.5 cm. The articular surface shows roughening with no definitive eburnation. Recognizable cartilage along the periphery does demonstrate osteophyte formation. The bone is cut with a band saw to reveal hard trabecular bone beneath the area of the eburnation. A subchondral cyst is not identified. Necrotic bone is not seen. Also received within the container are numerous yellow-white fibrous soft tissue fragments along with bone reamings. The additional tissue appears grossly unremarkable. Dealer Account Manager sections are submitted in formalin as follows: A1 soft tissue, A2 bone after a period of decalcification. ARH/adb 05/04/2020 Gross examination performed at [facility], [facility] [place] [address] Date of Report: 05/09/2020 Date of Procedure: 05/03/2020 Date of Receipt: 05/03/2020 Submitted by: STEVEN GUEVARA JR, MD Location: [facility] Diagnostic interpretation performed at [facility], [address] [place] [address]. CLIA Number: [id number] Normal [facility] Reference Lab Comment on above: Performed By: #### S #### See report for performing lab information. XR PELVIS 1V APon 05-03-2020 XR PELVIS 1V AP * * *Final Report* * * DATE OF EXAM: May 03 2020 4:01PM VHX [id number] - XR PELVIS 1V AP / PROCEDURE REASON: Post-operative / post-procedure assessment, asymptomatic * * * * Physician Interpretation * * * * EXAMINATION: PELVIS Clinical history: Status post arthroplasty Views: AP radiograph Comparison: December 01 RESULT: A right total hip arthroplasty is seen. Alignment is normal. No gross fracture is observed. Ilioischial and iliopectineal lines are intact. IMPRESSION: Status post hip arthroplasty, normal alignment Investigator Operator: PSCB Transcribe Date/Time: May 03 2020 4:05P Dictated by : JUAN LUIS RUSSELL MD This examination was interpreted and the report reviewed and electronically signed by: JUAN LUIS RUSSELL MD on May 03 2020 4:07PM EST [id number] [facility] ALISIA CORREA ([id number]) 1960 M Date Time Provider Department 05/02/20 VJ JORGE) AVPSUMA During your visit today, we recorded the following information about you: Vj Jorge PA-C 05/02/2020 10:43 AM Signed Called patient and left VM regarding necessity of Covid testing before surgery. Patient is scheduled for tomorrow 05/03. Advised patient to get testing done today otherwise we will have to cancel his surgery for tomorrow. BILL Narayan MA 05/02/2020 1:01 PM Signed Attempted to call patient and advise of below information but patient did not answer and I had to leave a voicemail regarding below with the Covid Testing Number. I stated on voicemail several times that if the Covid testing is not completed, surgery will have to be cancelled. Allergies As of Date: 05/02/2020 Noted Allergy Reaction CELEBREX (CELECOXIB) 06/04/2017 2 - Rash 4 - Hives 8 - GI Upset ERYTHROMYCIN BASE 03/06/2004 4 - Hives 12 - Shortness of Breath AVELOX (MOXIFLOXACIN HCL) 07/20/2006 2 - Rash 4 - Hives 9 - Itching 12 - Shortness of Breath KLONOPIN (CLONAZEPAM) 06/04/2017 9 - Itching LEVAQUIN (LEVOFLOXACIN) 01/29/2010 4 - Hives Date Reviewed: 04/24/2020 Reviewed by: Britney (Ceo & Founder) Trent - Fully Assessed Reason for Visit: Covid Testing Prior to Surgery [Other] Cmt: Patient No Showed Covid Testing Yesterday Reason For Visit History Recorded Prescriptions as of 05/02/2020 Sig: SULFAMETHOXAZOLE 800 MG-TRIME* Take 1 tablet by mouth twice * MUPIROCIN 2 % TOPICAL OINTMENT Apply to each nostril twice a* QUETIAPINE 25 MG TABLET Take 1 tablet by mouth every * DICLOFENAC SODIUM 75 MG TABLE* Take 75 mg by mouth twice carol* ACETAMINOPHEN 325 MG TABLET Take 2 tablets by mouth every* ASPIRIN 81 MG TABLET,DELAYED * Take 1 tablet by mouth twice * PROMETHAZINE 25 MG TABLET 25 mg every 6 hours as needed* CARBIDOPA 25 MG-LEVODOPA 100 * Take 1.5 tablets by mouth fou* Patient taking differently: Take 1 tablet by mouth four t* TOPIRAMATE 200 MG TABLET Take 1 tablet by mouth twice * TOPIRAMATE 100 MG TABLET Take 1 tablet by mouth twice * OXYBUTYNIN CHLORIDE ORAL Take 15 mg by mouth once brayan* DOCUSATE SODIUM 100 MG CAPSULE Take 1 capsule by mouth twice* TIZANIDINE 4 MG TABLET Take 1 tablet by mouth every * PREGABALIN 300 MG CAPSULE Take 300 mg by mouth twice da* ONDANSETRON HCL 4 MG TABLET Take 1 tablet by mouth every * METFORMIN 1,000 MG TABLET Take 1,000 mg by mouth twice * LINACLOTIDE 145 MCG CAPSULE Take 145 mcg by mouth once da* ATORVASTATIN 10 MG TABLET Take 10 mg by mouth once brayan* EZETIMIBE 10 MG TABLET Take 10 mg by mouth once brayan* MISOPROSTOL 200 MCG TABLET Take 200 mcg by mouth four ti* UREA 40 % LOTION Apply to affected area twice* CLOTRIMAZOLE-BETAMETHASONE 1 * Apply to affected area twice* HYDROXYZINE HCL 50 MG TABLET Take 100 mg by mouth once carol* BETAMETHASONE, AUGMENTED 0.05* APPLY TO THE AFFECTED AREA(S)* MAGNESIUM HYDROXIDE 400 MG/5 * Take 15 mL by mouth once brayan* BUDESONIDE-FORMOTEROL HFA 160* Inhale 2 Puffs as instructed * DULOXETINE 60 MG CAPSULE,AVEL* Take 1 capsule by mouth once * SUCRALFATE 1 GRAM TABLET Take 1 tablet by mouth four t* Patient taking differently: Take 1 g by mouth four times * CENTRUM SILVER ULTRA MEN'S OR* Take 1 tablet by mouth once d* AMITRIPTYLINE 25 MG TABLET Take 50 mg by mouth daily at * ALBUTEROL SULFATE 1.25 MG/3 M* Use 1 Ampule via nebulizer ev* PRECOSE 25 MG TABLET Take one(1) tablet three(3) t* UROCIT-K 10 10 MEQ (1,080 MG)* Take one(1) tablet three time* Problem List As Of Date 05/02/2020 Noted Resolved SPRAIN OF NECK () [S13.9XXA] 03/06/2004 07/21/2019 CERVICAL SPINAL STENOSIS [M48.02] 03/06/2004 Brachial neuritis or radiculitis [M54.12] 03/06/2004 12/22/2018 THORACIC DISC DISPLACMNT [M51.24] 03/06/2004 Carpal tunnel syndrome [G56.00] 03/06/2004 12/22/2018 SPRAIN OF NECK () [S13.9XXA] 03/06/2004 CERVICAL DISC DISPLACMNT [M50.20] 04/17/2004 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 IMPOTENCE, ORGANIC ORIGN [N52.9] 10/08/2007 Frequency of urination [R35.0] 03/26/2010 Slow Urinary Stream [R39.198] 03/26/2010 Microstomia [Q18.5] 08/09/2010 BPH w urinary obs/LUTS [N40.1] 08/12/2010 Postlaminectomy syndrome of lumbar region [M96.*06/30/2016 Glenohumeral arthritis [M19.019] 07/17/2016 12/22/2018 Primary osteoarthritis of left knee [M17.12] 01/28/2017 Type 2 diabetes mellitus without complication, *04/15/2017 More... Chronic pain syndrome [G89.4] 04/15/2017 More... COPD with chronic bronchitis (HCC) [J44.9] 04/15/2017 More... Arthritis of knee [M17.10] 04/27/2017 Primary osteoarthritis of right knee [M17.11] 05/20/2017 More... OA (osteoarthritis) of knee [M17.10] 07/01/2017 Glenohumeral arthritis, left [M19.012] 10/26/2017 Essential tremor [G25.0] 10/27/2017 More... Asthma [J45.909] 12/07/2017 Diabetes mellitus (HCC) [E11.9] 12/07/2017 More... Essential hypertension [I10] 12/07/2017 More... Hyperlipidemia [E78.5] 12/07/2017 More... Ulcerative lesion [LSS2240] 12/07/2017 07/21/2019 Shoulder arthritis [M19.019] 12/29/2017 Status post replacement of left shoulder joint *02/08/2018 CRPS (complex regional pain syndrome type I) [G*03/16/2018 Nicotine use disorder, F17.2 [F17.200] 03/17/2018 More... Obesity, Class I, BMI 30-34.9 [E66.9] 03/17/2018 Multilevel spine pain [M54.9] 06/02/2018 Iron deficiency anemia secondary to inadequate *06/16/2018 Complete tear of right rotator cuff [M75.121] 08/02/2018 Spinal cord stimulator status [Z96.89] 09/07/2018 More... MGUS (monoclonal gammopathy of unknown signific*09/15/2018 PD (Parkinson's disease) (HCC) [G20] 04/13/2019 More... 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 Unspecified sleep apnea [G47.30] More... Acute cystitis without hematuria [N30.00] 04/27/2020 More... Encounter Status:Closed by VJ JORGE on 05/02/20 [facility] NURSING PROGon 04-25-2020 NURSING PROG HNO ID: [id number] Author: Niyah Hinkle (Rn) ALFONSO Golden Service: Anesthesiology Author Type: Registered Nurse Type: Nursing Progress Note Filed: 05/02/2020 10:19 AM Note Text: PACC Nurse Progress Note History AND Physical: PACC Visit Date: 04/24/2020 Original HANDP Date: N/A ED visit Date: N/A Outside HANDP Scanned Date: N/A Labs Within Last 6 Months: CBC: Date 04/24/2020 BMP/CMP: Date 04/24/2020 HBA1C: Date 04/24/2020 UA: Date 04/24/2020 Urine C+S: Date 04/24/2020 STAAMP: Date 04/12/2020 TYPE AND SCREEN: [place]: Date 12/13/2019 OTHER TEST: FERRITIN, Iron+TIBC, Date 04/24/2020 Within Acceptable Limits except urine c/s in process Results in EPIC mupirocin (BACTROBAN) 2 % ointment Imaging Within Last 12 Months: N/A Cardiac Testing: EKG in last 12 Months: Yes: Date: 10/21/2019, Comment: NSR 77 BPM Risk Assessment: N/A Anesthesia Review: YOLA uses CPAP/BiPAP Narrative: Spinal cord stimulator status Assessment: for LBP generator in right hip Aware to bring remote on DOS Tobacco use Assessment: 60 pack years Currently 1/2 pack day since 01/2020 Cessation with strategies encouraged. Unspecified sleep apnea Assessment: Uses CPAP at home Pre-op Considerations: N/A Chart Check: IN PROGRESS-urine c/s in process Megan Navarro RN April 25, 2020 12:35 PM ADDENDUM Labs: Urine culture: 04/24/2020 - abnormal - Klebsiella (Enterobacter) aerogenes . Forwarded lab results to surgeon and PACC GAEL. - prescribed Bactrim on 04/27/2020 Chart Check: COMPLETE COVID scheduled 05/01/2020 @ 10:30 Niyah Golden RN April 30, 2020 2:36 PM [facility] Type and SCR (30D)on 020 ABO/RH(D) Negative [facility] HOSPon 04-12-2020 HOSP Patient:Eddi Correa MRN: Height:5' 10.984 (1.803 m) Weight:243 lb (110.224 kg) Outpatient Medications as of 05/03/20: sulfamethoxazole-trimethoprim (BACTRIM DS) 800-160 mg per tablet mupirocin (BACTROBAN) 2 % ointment QUEtiapine (SEROQUEL) 25 mg tablet diclofenac, EC, (VOLTAREN) 75 mg EC tablet acetaminophen (TYLENOL) 325 mg tablet aspirin, enteric coated (ASPIRIN, ENTERIC COATED) 81 mg EC tablet promethazine (PHENERGAN) 25 mg tablet carbidopa-levodopa (SINEMET) 25-100 mg per tablet topiramate (TOPAMAX) 200 mg tablet topiramate (TOPAMAX) 100 mg tablet OXYBUTYNIN CHLORIDE ORAL docusate sodium (COLACE) 100 mg capsule tiZANidine (ZANAFLEX) 4 mg tablet pregabalin (LYRICA) 300 mg capsule ondansetron (ZOFRAN, HYDROCHLORIDE,) 4 mg tablet metFORMIN (GLUCOPHAGE) 1,000 mg tablet linaclotide (LINZESS) 145 mcg cap atorvastatin (LIPITOR) 10 mg tablet ezetimibe (ZETIA) 10 mg tablet miSOPROStol (CYTOTEC) 200 mcg tablet urea (CARMOL) 40 % lotn clotrimazole-betamethasone (LOTRISONE) cream hydrOXYzine HCl (ATARAX) 50 mg tablet Aug Betamethasone Dipropionate (DIPROLENE) 0.05 % ointment magnesium hydroxide (MILK OF MAGNESIA) 400 mg/5 mL suspension budesonide-formoterol (SYMBICORT) 160-4.5 mcg/actuation inhaler DULoxetine (CYMBALTA) 60 mg capsule sucralfate (CARAFATE) 1 gram tablet MULTIVIT-MIN/FA/LYCOPEN/LUTEI N (CENTRUM SILVER ULTRA MEN'S ORAL) amitriptyline 25 mg ORAL tablet Albuterol Sulfate 1.25 mg/3 mL INHALATION nebulizer solution acarbose(PRECOSE 25 MG TAB) potassium citrate (UROCIT-K 10) 10 mEq ORAL TbSR Admission/Clinic Administered Medications as of 05/03/20: lidocaine 10 mg/mL (1 %) 1-2 mg injection (XYLOCAINE) lactated ringers infusion ceFAZolin iv piggyback 2 g in D5W (iso-osmotic) 100 mL (ANCEF) Problem List: Spinal stenosis in cervical region [M48.02] Displacement of thoracic intervertebral disc without myelopathy [M51.24] SPRAIN OF NECK () [S13.9XXA] Displacement of cervical intervertebral disc without myelopathy [M50.20] Brachial neuritis or radiculitis NOS [M54.12] Spinal stenosis, lumbar region, without neurogenic claudication [M48.061] Rotator cuff syndrome of shoulder and allied disorders [M75.100] Psychosexual dysfunction, unspecified [F52.9] Urgency of urination [R39.15] 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 [N52.9] Frequency of urination [R35.0] Slow urinary stream [R39.198] Microstomia [Q18.5] Hypertrophy of prostate with urinary obstruction and other lower urinary tract symptoms (LUTS) [N40.1] Postlaminectomy syndrome of lumbar region [M96.1] Primary osteoarthritis of left knee [M17.12] Type 2 diabetes mellitus without complication, without long-term current use of insulin (HCC) [E11.9] Chronic pain syndrome [G89.4] COPD with chronic bronchitis (HCC) [J44.9] Arthritis of knee [M17.10] Primary osteoarthritis of right knee [M17.11] OA (osteoarthritis) of knee [M17.10] Glenohumeral arthritis, left [M19.012] Essential tremor [G25.0] Asthma [J45.909] Diabetes mellitus (HCC) [E11.9] Essential hypertension [I10] Hyperlipidemia [E78.5] Shoulder arthritis [M19.019] Status post replacement of left shoulder joint [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] CRPS (complex regional pain syndrome type I) [G90.50] Nicotine use disorder, F17.2 [F17.200] Obesity, Class I, BMI 30-34.9 [E66.9] Multilevel spine pain [M54.9] Iron deficiency anemia secondary to inadequate dietary iron intake [D50.8] Complete tear of right rotator cuff [M75.121] Spinal cord stimulator status [Z96.89] MGUS (monoclonal gammopathy of unknown significance) [D47.2] PD (Parkinson's disease) ([facility]) [G20] Dysphagia [R13.10] 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] Osteoarthritis of left hip [M16.12] Open wound of left heel [S91.302A] Megaloblastic anemia due to vitamin B12 deficiency [D53.1] Tobacco use [Z72.0] Unspecified sleep apnea [G47.30] Acute cystitis without hematuria [N30.00] Osteoarthritis of right hip [M16.11] Allergies: Celebrex [Celecoxib] Erythromycin Base Avelox [Moxifloxacin Hcl] Klonopin [Clonazepam] Levaquin [Levofloxacin] Date Verified: 05/03/20 Lab Values Lab Value Units Date High Low POTA* 4.6 mmol/L 04/24/2020 5.1 3.7 FEI* 47.0 % 04/24/2020 51.0 39.0 Progress Notes (AV PROVIDER ADULT): Vj Jorge PA-C 05/02/2020 10:43 AM Signed Called patient and left VM regarding necessity of Covid testing before surgery. Patient is scheduled for tomorrow 05/03. Advised patient to get testing done today otherwise we will have to cancel his surgery for tomorrow. BILL Narayan MA 05/02/2020 1:01 PM Signed Attempted to call patient and advise of below information but patient did not answer and I had to leave a voicemail regarding below with the Covid Testing Number. I stated on voicemail several times that if the Covid testing is not completed, surgery will have to be cancelled. Progress Notes (PT [employer]): Tomeka Reyes 04/19/2020 4:51 PM Signed Patient is scheduled for post-op Physical Therapy at [facility] Ctr ([phone])on 05/07/20 @ 2:45. They want patient to arrive 10 to 15 min early. Fax PT order to [phone]. Normal [facility] Basic Metabolic Panlon 11-09 Anion gap [Moles/Vol] 8 mmol/L Low 9-18 [facility] Calcium [Mass/Vol] 8.6 mg/dL Normal 8.5-10.2 [facility] Chloride [Moles/Vol] 101 mmol/L Normal 97-105 [facility] CO2 [Moles/Vol] 30 mmol/L Normal 22-30 [facility] Creatinine [Mass/Vol] 1.02 mg/dL Normal 0.73-1.22 [facility] eGFR- Amer. >[address] [facility] ospital GFR/1.73 sq M predicted among non-blacks MDRD (S/P/Bld) [Vol rate/Area] mL/min/{1.73_m2} Normal [facility] Comment on above: Result Comment: eGFR (Estimated GFR) Units of measure: mL/min/1.73 meters squared eGFR is derived from the reexpressed MDRD Study equation using the following parameters: serum creatinine, age, gender and race. The creatinine assay has been calibrated to be traceable to IDMS. An eGFR <60 mL/min/1.73m2 for >3 months is consistent with chronic kidney disease. Refer to KDOQI guidelines for clinical interpretation. In patients with unstable renal function, e.g. those with acute kidney injury, the eGFR may not accurately reflect actual GFR. Glucose [Mass/Vol] 110 mg/dL High 74-99 [facility] Comment on above: Result Comment: The [place] Diabetes Association (ADA) provides guidance for cutoff values for fasting glucose and random glucose. The ADA defines fasting as no caloric intake for at least 8 hours. Fasting plasma glucose results between 100 to 125 mg/dL indicate increased risk for diabetes (prediabetes). Fasting plasma glucose results greater than or equal to 126 mg/dL meet the criteria for diagnosis of diabetes. In the absence of unequivocal hyperglycemia, results should be confirmed by repeat testing. In a patient with classic symptoms of hyperglycemia or hyperglycemic crisis, random plasma glucose results greater than or equal to 200 mg/dL meet the criteria for diagnosis of diabetes. Reference: Standards of Medical Care in Diabetes 2016, [place] Diabetes Association. Diabetes Care. 2016.39(Suppl 1). Potassium [Moles/Vol] 4.1 mmol/L Normal 3.7-5.1 [facility] Sodium [Moles/Vol] 139 mmol/L Normal 136-[address] [facility]spital Urea nitrogen [Mass/Vol] 18 mg/dL Normal 9-24 [facility] CBCon 11-09-2019 Absolute nRBC <0.01 [facility] width (RBC) [Ratio] 13.7 % Normal 11.5-15.0 [facility] Hematocrit (Bld) [Volume fraction] 39.6 % Normal 39.0-51.0 [facility] Hemoglobin (Bld) [Mass/Vol] 12.5 g/dL Low 13.0-17.0 [facility] MCH (RBC) [Entitic mass] 30.2 pG Normal 26.0-34.0 [facility] MCHC (RBC) [Mass/Vol] 31.6 g/dL Normal 30.5-36.0 [facility] MCV (RBC) [Entitic vol] 95.7 fL Normal 80.0-100.0 [facility] Platelet mean volume (Bld) [Entitic vol] 11.8 fL Normal 9.0-12.7 [facility] Platelets (Bld) [#/Vol] 129 10*3/uL Low 150-400 [facility] RBC (Bld) [#/Vol] 4.14 10*6/uL Low 4.20-6.00 [facility] WBC (Bld) [#/Vol] 6.62 10*3/uL Normal 3.70-11.00 [facility] CONSULT PROGon 11-09-2019 CONSULT PROG HNO ID: [id number] Author: Lenora Alarcon Service: Hospital Medicine Author Type: Physician Type: Consult Progress Note Filed: 11/09/2019 9:15 AM Note Text: Hospital Medicine Noted plans by primary service for discharge home today. Labs stable. Vitals stable. Discharge med rec addressed. No changes made to home medications. Stable for discharge home from medical standpoint. Will need Waffle Boot Heel Protector on left foot, as recommended by Podiatry (left heel fissure and hemorrhagic callus great toe). Lenora Alarcon D.O. Associate Staff, Department of Hospital Medicine Clinical Chlorination Operatorsocial work faculty member [facility], [facility] Pager [phone] / [phone] [facility] NURSING PROGon 11-09-2019 NURSING PROG HNO ID: [id number] Author: Renae (Rn) ALFONSO Greco Service: ? Author Type: Registered Nurse Type: Nursing Progress Note Filed: 11/09/2019 8:43 PM Note Text: Nursing Progress Note Patient Name: Alisia Correa Patient Location: / Daily Note: Pt up in chair awake oriented x 3. Dressing to left hip dry and intact, bilateral ppp, denies numbness or tingling. Toes warm and mobile, vitals stable. Will monitor. 1430 Pt had been cleared by PT/OT and discharge orders given. Follow up appt scheduled, IV was removed, scripts called into pt pharmacy per pt request. Discussed s/s of infection, wound care, dvt prevention, bleeding precautions and medications. No other questions at this time. 1304 Pt discharged to home in stable condition via wheelchair. This note was completed by: Renae Greco RN [facility] PLAN OF CAREon 11-09-2019 PLAN OF CARE HNO ID: [id number] Author: Rita Arias (Airline Pilot Flight Instructor) Service: ? Author Type: Automobile Dealer Type: Plan of Care Filed: 11/09/2019 10:31 AM Note Text: [employer] BEDSIDE DELIVERY SURVEY 1. Patient to use [facility] Bedside Delivery - NO prefer own pharmacy Insurance Information as follows: 2. Insurance card on file - N/A 3. Credit card for payment - N/A [facility] PROGRESSon 11-09-2019 PROGRESS HNO ID: [id number] Author: Demetris Naik Service: ? Author Type: Physician Deck Worker Type: Progress Notes Filed: 11/09/2019 7:49 AM Note Text: ORTHOPAEDIC POSTOP PROGRESS NOTE SERVICE DATE: 11/09/2019 SERVICE TIME: 0748 Subjective Patient states that they are comfortable Well Controlled hip pain. Mild incisional pain. No fevers or chills. No chest pain. No shortness of breath. No numbness or paresthesias. Objective VITAL SIGNS: BP 120/78 Pulse 75 Temp 36.7 ?C (98.1 ?F) (Oral) Resp 18 Ht 177.8 cm (5' 10 ) Wt 106.1 kg (234 lb) SpO2 93% BMI 33.58 kg/m? INTAKE AND OUTPUT: Intake/Output Summary (Last 24 hours) at 11/09/2019 0748 Last data filed at 11/09/2019 0635 Gross per 24 hour Intake 3620 ml Output 1700 ml Net 1920 ml PHYSICAL EXAMINATION: Left Lower Extremity: Dorsalis pedis pulses palpable. Posterior tibial pulses palpable. Dorsi flexion 5/5. Plantar flexion 5/5. Extensor hallucis extension: 5/5. Sensory intact to light touch L1-S1. Dressing clean, dry and intact. Surgical site no drainage and Aquacell intact. Calves soft and non tender, Pete's is negative. Problem Review and Assessment: Patient monitored, no new events overnight. LABS: Recent Labs 11/09/19 0436 11/08/19 1156 HB 12.5* 14.2 HCT 39.6 44.3 DATA: Diagnostic tests reviewed for today's visit: Most recent labs and imaging results. Assessment/Plan S/P Procedure(s) (LRB): ARTHROPLASTY REPLACE JOINT TOTAL HIP (Left) on 11/08/2019 POSTOP PLAN: Physical Therapy evaluation DVT prophylaxis: with aspirin, additional anticoagulant is contraindicated due to bleeding risk, Graduated compression stockings (GCS) and Intermittent pneumatic compression device (IPCD) Pain control-oxy ir Discussed with the patient the benefits and risks regarding opioid pain medication. This patient underwent major orthopedic surgery which will require the dose of daily narcotic pain medication to exceed the 30 MED/day regulation and non-opioid pain medication alone will not be enough to control pain in the immediate post operative period. This patient will require 1-2 tablets every 4-6 hours short-term postoperatively (7 days) for pain control. Will taper as tolerated thereafter. 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 Frequency of Urination Slow Urinary Stream Microstomia Hypertrophy of Prostate With Urinary Obstruction and Other Lower Urinary Tract Symptoms (Luts) Postlaminectomy Syndrome of Lumbar Region Primary Osteoarthritis of Left Knee Type 2 Diabetes Mellitus Without Complication, Without Long-Term Current Use of Insulin ([facility]) Chronic Pain Syndrome Copd With Chronic Bronchitis ([facility]) Arthritis of Knee Primary Osteoarthritis of Right Knee Oa (Osteoarthritis) of Knee Glenohumeral Arthritis, Left Essential Tremor Asthma Diabetes Mellitus ([facility]) Essential Hypertension Hyperlipidemia Shoulder Arthritis Status Post Replacement of Left Shoulder Joint Crps (Complex Regional Pain Syndrome Type I) Nicotine use disorder, F17.2 Obesity, Class I, Bmi 30-34.9 Multilevel Spine Pain Iron Deficiency Anemia Secondary to Inadequate Dietary Iron Intake Complete Tear of Right Rotator Cuff Spinal Cord Stimulator Status Mgus (Monoclonal Gammopathy of Unknown Significance) Pd (Parkinson's Disease) ([facility]) Dysphagia Psychosis Due to Parkinson's Disease ([facility]) Osteoarthritis of Left Hip Open Wound of Left Heel Medication and Non-Pharmacologic VTE Prophylaxis/Anticoagulants Anticoagulant AND Antiplatelet Medications (From admission, onward) Start Dose Route Frequency Ordered Stop 11/09/19 0900 aspirin, enteric coated 81 mg tab(s) (Surgical Risk Categories ) 81 mg ORAL 2 TIMES DAILY 11/08/19 1300 -- 11/09/19 0000 aspirin, enteric coated (ASPIRIN, ENTERIC COATED) 81 mg EC tablet 81 mg ORAL 2 TIMES DAILY 11/09/19 0747 -- 11/08/19 1315 pneumatic compression stockings (ri,oh) 11/08/19 1315 graduated compression stockings (ri,ms) 11/08/19 1315 graduated compression stockings (ri,ms) 11/08/19 1315 activity - mobilize patient (ri,ms) 11/08/19 1315 activity - mobilize patient (ri,oh) 11/08/19 1315 activity - mobilize patient (ri,ms) VTE Prophylaxis: VTE prophylaxis appropriate POST OPERATIVE COMPLICATIONS: Complicated by: uneventful/none SIGNATURE: Demetris Naik PA-C PATIENT NAME: Alisia Correa DATE: November 09, 2019 TIME: 7:48 AM PAGER/CONTACT #: HOWARD#[id number] [facility] PT EDon 11-09-2019 PT ED HNO ID: [id number] Author: Shelley Givens (Pharmacist) Service: Pharmacy Author Type: Pharmacist Type: Patient Education Filed: 11/09/2019 10:35 AM Note Text: DISCHARGE MEDICATION COUNSELING BY PHARMACY Patient Name: Alisia Correa Account #: Data Unavailable Admission Date: 11/08/2019 Date of Contact: November 09, 2019 Time of Contact: 10:33 AM LEARNERS Persons Present: Patient Primary Learner: Patient The patient was counseled on the medication(s) listed below and was given the opportunity to ask questions regarding indication, dosage, side effects and drug interactions READINESS TO LEARN COGNITIVE ABILITY:Alert and oriented MOTIVATION TO LEARN:Interested FAMILY SUPPORT:Unable to assess - Family not present INSTRUCTION PROVIDED TO:Patient PATIENT LEARNS BEST BY:Multiple Methods FACTORS AFFECTING LEARNING:None PHYSICAL LIMITATIONS AFFECTING LEARNING:None LEARNING RESPONSE PATIENT / FAMILY RESPONSE:Verbalizes understanding of: The physical restrictions and recommendations after discharge from the hospital. Accurate knowledge of prescribed medication prior to discharge. The side effects associated with the medication that warrant a call to the physician. SHELLEY GIVENS, PHARMACIST November 09, 2019 10:33 AM Medication List START taking these medications aspirin, enteric coated 81 mg EC tablet Commonly known as: ASPIRIN, ENTERIC COATED Take 1 tablet by mouth twice daily. Replaces: aspirin 81 mg chewable tablet oxyCODONE IR 5 mg immediate release tablet Commonly known as: ROXICODONE Take 1-2 tablets by mouth every 4 hours as needed (pain) for up to 7 days. CHANGE how you take these medications acetaminophen 325 mg tablet Commonly known as: TYLENOL Take 2 tablets by mouth every 8 hours. What changed: ? when to take this ? reasons to take this carbidopa-levodopa 25-100 mg per tablet Commonly known as: SINEMET Take 1.5 tablets by mouth four times daily. What changed: how much to take sucralfate 1 gram tablet Commonly known as: CARAFATE Take 1 tablet by mouth four times daily. What changed: ? when to take this ? reasons to take this ? additional instructions CONTINUE taking these medications Albuterol Sulfate 1.25 mg/3 mL nebulizer solution amitriptyline 25 mg tablet Commonly known as: ELAVIL atorvastatin 10 mg tablet Commonly known as: LIPITOR Aug Betamethasone Dipropionate 0.05 % ointment Commonly known as: DIPROLENE budesonide-formoterol 160-4.5 mcg/actuation inhaler Commonly known as: SYMBICORT Inhale 2 Puffs as instructed twice daily. CENTRUM SILVER ULTRA MEN'S ORAL CYTOTEC 200 mcg tablet Generic drug: miSOPROStol docusate sodium 100 mg capsule Commonly known as: COLACE Take 1 capsule by mouth twice daily. DULoxetine 60 mg capsule Commonly known as: CYMBALTA Take 1 capsule by mouth once daily. ezetimibe 10 mg tablet Commonly known as: ZETIA hydrOXYzine HCl 50 mg tablet Commonly known as: ATARAX LINZESS 145 mcg capsule Generic drug: linaclotide LOTRISONE cream Generic drug: clotrimazole-betamethasone LYRICA 300 mg capsule Generic drug: pregabalin magnesium hydroxide 400 mg/5 mL suspension Commonly known as: MILK OF MAGNESIA Take 15 mL by mouth once daily as needed. Take if no BM > 48 hrs. metFORMIN 1,000 mg tablet Commonly known as: GLUCOPHAGE ondansetron 4 mg tablet Commonly known as: ZOFRAN Take 1 tablet by mouth every 8 hours as needed. OXYBUTYNIN CHLORIDE ORAL PRECOSE 25 mg tablet Generic drug: acarbose Take one(1) tablet three(3) times daily. promethazine 25 mg tablet Commonly known as: PHENERGAN QUEtiapine 25 mg tablet Commonly known as: SEROquel Take 1 tablet by mouth every evening. ranitidine 150 mg tablet Commonly known as: ZANTAC senna 8.6 mg Tab Commonly known as: SENOKOT Take 1 tablet by mouth twice daily. tamsulosin ER 0.4 mg Cap Commonly known as: FLOMAX tiZANidine 4 mg tablet Commonly known as: ZANAFLEX Take 1 tablet by mouth every 8 hours as needed. TAKES 2 TAB AT HS * topiramate 200 mg tablet Commonly known as: TOPAMAX Take 1 tablet by mouth twice daily. * topiramate 100 mg tablet Commonly known as: TOPAMAX Take 1 tablet by mouth twice daily. urea 40 % Lotn Commonly known as: CARMOL UROCIT-K 10 10 mEq (1,080 mg) Tber Generic drug: potassium citrate ER * This list has 2 medication(s) that are the same as other medications prescribed for you. Read the directions carefully, and ask your doctor or other care provider to review them with you. STOP taking these medications aspirin 81 mg chewable tablet Replaced by: aspirin, enteric coated 81 mg EC tablet diclofenac (EC) 25 mg EC tablet Commonly known as: VOLTAREN VIAGRA 100 mg tablet Generic drug: sildenafil Where to Get Your Medications These medications were sent to e- [facility]-[place] [address] [facility] - [phone] [address] [facility] [address] ? aspirin, enteric coated 81 mg EC tablet ? oxyCODONE IR 5 mg immediate release tablet You can get these medications from any pharmacy You don't need a prescription for these medications ? acetaminophen 325 mg tablet Normal [facility] PT ED HNO ID: [id number] Author: Shelley Givens (Pharmacist) Service: Pharmacy Author Type: Pharmacist Type: Patient Education Filed: 11/09/2019 10:33 AM Note Text: PHARMACY ANTICOAGULATION EDUCATION Patient Name: Alisia Correa Account #: Data Unavailable Admission Date: 11/08/2019 7:47 AM Date of Contact: November 09, 2019 Time of Contact: 10:30 AM Patient new to Aspirin 81 mg BID? No: Previous (home) dosage: Aspirin 81 mg daily Indication for anticoagulation: Post Op DVT prophylaxis Patient received full anticoagulation education. Initial patient education included: * Reason for taking anticoagulation * How anticoagulant works * When to take medication and what to do if a dose is missed * Drug interactions (Rx, OTC, herbal) and importance of notifying the doctor with any changes. * Do not take or discontinue any medication or over the counter medication except on the advice of the physician or pharmacist. * Potential duration of therapy * Signs/symptoms of bleeding and what to do if they occur because anticoagulation increases the risk of bleeding * Precautionary measures to decrease trauma/bleeding * Signs/symptoms of thrombosis and what to do if they occur * Carrying identification * Importance of notifying healthcare provider when hospitalizations occur and when another healthcare provider has asked them to stop/hold anticoagulation medication before any procedure * Importance of notifying all healthcare providers they are taking an anticoagulant * Use of control measures if applicable * The importance of taking anticoagulation medication as instructed and the potential ramifications of non-compliance were explained to the patient. The patient was provided supplemental material which includes the following topics: compliance Issues, follow-up with physician, follow- up monitoring, potential adverse drug reactions and interactions. READINESS TO LEARN COGNITIVE ABILITY: Alert and oriented MOTIVATION TO LEARN: Interested FAMILY SUPPORT: Unable to assess - Family not present INSTRUCTION PROVIDED TO: Patient PATIENT LEARNS BEST BY: Multiple Methods FACTORS AFFECTING LEARNING: None PHYSICAL LIMITATIONS AFFECTING LEARNING: None LEARNING RESPONSE DIAGNOSIS: SEE INDICATION(S) ABOVE PATIENT/FAMILY RESPONSE: Verbalizes understanding of: Accurate knowledge of prescribed medication prior to discharge. The side effects associated with the medication that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 - ceFAZolin iv piggyback 2 g in D5W (iso-osmotic) 100 mL (ANCEF) 2 g INTRAVENOUS q 8 H - lactated ringers infusion 100 mL/hr INTRAVENOUS CONTINUOUS - NaCl 0.9% 2-10 mL 2-10 mL INTRAVENOUS q 12 H - morphine 2-4 mg injection 2-4 mg INTRAVENOUS q 3 H PRN - oxyCODONE IR 5-10 mg tab(s) (ROXICODONE) 5-10 mg ORAL q 4 H PRN - acetaminophen 650 mg tab(s) (TYLENOL) 650 mg ORAL q 8 H - ondansetron 4 mg tab(s) (ZOFRAN) 4 mg ORAL q 6 H PRN Or - ondansetron (PF) 4 mg injection (ZOFRAN) 4 mg INTRAVENOUS q 6 H PRN - [START ON 11/09/2019] magnesium hydroxide 400 mg/5 mL 30 mL (MOM) 30 mL ORAL DAILY PRN - [START ON 11/10/2019] bisacodyl EC 10 mg tab(s) (DULCOLAX) 10 mg ORAL DAILY - diphenhydrAMINE 25 mg (BENADRYL) 25 mg ORAL q 4 H PRN - aluminum-magnesium hydroxide-simethicone 200-200-20 mg/5 mL 30 mL (MAALOX,MYLANTA,MAG-AL PLUS) 30 mL ORAL q 2 H PRN - [START ON 11/09/2019] ascorbic acid (vitamin C) 500 mg tab(s) (VITAMIN C) 500 mg ORAL BID w MEALS - [START ON 11/09/2019] docusate sodium 100 mg cap(s) (COLACE) 100 mg ORAL BID - aspirin, enteric coated 81 mg tab(s) 81 mg ORAL BID . 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 O2 Therapy: Nasal Cannula, Liters: 4.00 Physical Exam Performed: GENERAL: Alert, appears WDWN in no acute distress, cooperative. HEAD: Normocephalic, atraumatic. EYES: PERRLA, EOMI NECK: No jugulovenous distention, supple BACK: Back symmetric, normal curvature, ROM normal, no CVAT. LUNGS: Lungs clear to auscultation, no adventitious lung sounds. Good diaphragmatic excursion CARDIAC: Normal S1 and S2; no rubs, murmurs, or gallops ABDOMEN: Abdomen soft, non-distended, non-tender, BS normal x 4. No masses or organomegaly EXTREMITIES: +L hip dressing c/d/i NEURO: Alert and oriented x3. Grossly normal cognition, motor function, and cranial nerves II-XII intact. Gait normal. Sensation grossly intact. Normal strength UE + LE. PULSES: 2+ radial, 2+ dorsalis pedis SKIN: +L heel linear ulceration (appears to be a crack in the calloused skin), L great toe with central dark area Lines, Drains, and Airways Line Peripheral 11/08/19 0835 Right Forearm 20 Gauge less than 1 day Reviewed lines and needs to be continued: REASONS: per primary team. DATA: Diagnostic tests reviewed for today's visit: Most recent labs and imaging results. Impression/Recommendations Active Problems: Osteoarthritis of left hip POA: Unknown Assessment AND Plan: Per primary team Type 2 diabetes mellitus without complication, without long-term current use of insulin (HCC) POA: Yes Assessment AND Plan: - Hold Metformin while in house - SSI #1 - Accuchecks ac/hs - Carb control - Hypoglycemia protocol COPD with chronic bronchitis ([facility]) POA: Yes Assessment AND Plan: - Chronic, stable - Continue home meds Hyperlipidemia POA: Yes Assessment AND Plan: - Continue home meds PD (Parkinson's disease) ([facility]) POA: Yes Assessment AND Plan: - Chronic, stable - Continue home meds Nicotine use disorder POA: Yes Assessment AND Plan: - Nicotine patch PRN - Cessation encouraged L heel and L great toe skin abnormalities - Consult to podiatry for proper care/ healing given DM II, recommendations appreciated Resolved Problems: * No resolved hospital problems. * VTE PROPHYLAXIS: Pneumatic Compression Device and Early Ambulation Disposition: Home with [facility] Plan of care discussed with: Provider, RN, Patient SIGNATURE: SHRAVAN Christian PATIENT NAME: Alisia Correa DATE: November 08, 2019 TIME: 1:15 PM PAGER/CONTACT #: [phone] [facility] NURSING PROGon 11-08-2019 NURSING PROG HNO ID: [id number] Author: Jessica (Rn) ALFONSO Joe Service: Nursing Author Type: Registered Nurse Type: Nursing Progress Note Filed: 11/08/2019 7:25 PM Note Text: Nursing Progress Note Patient Name: [facility] Correa [facility] Daily Note: 1330 Pt admitted to room 502 from PACU in stable condition. Pt at bedside. Pt drowsy. but awakens easily to verbal stimuli. A+Ox3. Left hip dressing dry and intact, positive pedal pulses/ Oriented pt to room, call light, floor routine plan of care, hip precautions and safety plan. Pt states understanding. Call light within reach. 1436 Medciated with 10mg Po oxy per pt request for pain. 1530 Pt states adequate relief from pain. 1924- medciated with 10mg Po oxycodone for c/o pain. Will monitor. This note was completed by: Jessica Joe RN [facility] OPERATIVE NOon 11-08-2019 OPERATIVE NO HNO ID: [id number] Author: Steven Guevara Jr. Service: Orthopaedic Surgery Author Type: Physician Type: Operative Report Filed: 11/08/2019 2:08 PM Note Text: [facility] OPERATIVE REPORT PATIENT NAME: Alisia Correa AGE: [age] year old LOG ID: [id number] Surgery Date: 11/08/2019 SURGEON: Steven Guevara M.D. SLEEVE TURNER: Vj Jroge PA-C, his assistance consisted of assistance with retraction, positioning and closing of the wound No resident physicians were available to participate in the case. PROCEDURE: Left TOTAL HIP REPLACEMENT-DIRECT LATERAL Procedure(s) (LRB): ARTHROPLASTY REPLACE JOINT TOTAL HIP (Left) Anesthesia: General Preop Diagnosis: Pre-Op Diagnosis Codes: * Osteoarthritis of left hip [M16.12] Postop Diagnosis: Same as Pre-Op Diagnosis Codes: * Osteoarthritis of left hip [M16.12] BMI: Estimated body mass index is 32.64 kg/m? as calculated from the following: Height as of 10/18/19: 180.3 cm (5' 11 ). Weight as of this encounter: 106.1 kg (234 lb). OPERATIVE INDICATIONS: This is a 59 year old male with osteoarthritis of the left hip. Nonoperative management has been exhausted. The decision was made to proceed with a total hip arthroplasty. Risks, benefits, and alternatives were discussed. He expressed understanding and consented to the procedure as outlined above. The patient was seen by [facility] Medicine for pre-operative optimization. Charley-operative blood management and the potential for blood transfusion were discussed with risks and options clearly outlined. The patient has consented to the use of banked allogenic blood if medically necessary. IMPLANTS: [employer] Total Hip System SIZE TYPE Acetabulum 56mm Trident 2 Screws Metal Liner 46mm Neutral Femur 7 lateralized Accolade 2 Femoral Head, Inner 28-2.7mm Ceramic Femoral Head, Outer 48mm Polyethylene OPERATIVE FINDINGS: Severe osteoarthritis of the Left hip OPERATIVE PROCEDURE: The patient was identified and brought into the Operating Room by the anesthesia and nursing team. Anesthesia was successfully performed. The patient was then positioned lateral decubitus on the operating room table with the Left hip facing up . Intravenous antibiotic prophylaxis dosing was confirmed. The Leftlower extremity was then prepped and draped in the usual sterile fashion with Chloraprep scrub. A surgical time-out was performed immediately preceding the incision with all personnel in the operating room; the patient identity was again confirmed, the surgical site and extremity were identified and confirmed, X-rays were reviewed, and availability of the appropriate surgical equipment was established. Direct lateral approach to the hip was undertaken. Sharp dissection was carried out through skin and subcutaneous tissue down to the level of the IT band. The IT band was split in line with the skin incision. A portion of the gluteus medius was released from the greater trochanter. The gluteus minimus was released from the greater trochanter and tagged with suture. Anterior capsulectomy was then performed. The hip was dislocated. Proximal femoral osteotomy was performed. The box sealing machine feeder osteotome was utilized to lateralize the starting point of proximal femur. The canal finder was inserted and sequential broaching was performed up to an 7 which provided external rotational stability. Retractors were then placed around the acetabulum. Remainder of the anterior capsule and the labrum was excised. Reaming began at 54 and increased sequentially to a 56 to accommodate a 56 acetabulum. A 56 acetabulum was impacted in place with assistance from the external alignment guide. Excellent rim fit was obtained. The liner was then impacted into the cup. A lateral neck and a 46 -2.7 head was then tried. The hip was reduced. It was taken through range of motion and was very stable. No tendency towards dislocation or impingement. The limb lengths were closely reapproximated, so the decision was made to use these size components. The hip was dislocated. All trial components were removed from the femur. The pain cocktail was injected into the soft tissues. The stem was then impacted into the femur. Excellent fit was obtained. The heads were assembled on the back table.The inner head was then impacted onto the neck, thereby engaging the taper. The hip was reduced. It continued to track well. The decision was made to proceed with closure. The wound was copiously irrigated out with normal saline with the pulse lavage. Instrument and sponge count was completed and confirmed correct. The gluteus minimus was reapproximated to the greater trochanter with 1 Ethibond suture. The gluteus medius was reapproximated to the greater trochanter with 1 Ethibond suture. The deep subcutaneous tissue was closed with a running 1-0 Vicryl suture. The subcutaneous tissue was closed with an interrupted 2-0 Vicryl suture. The skin was closed with a running 4-0 Monocryl. Exofin skin glue was applied and when completely dry, the sterile Aquacel silver impregnated dressing was applied. The patient was stable to PACU. POSTOPERATIVE MANAGEMENT: Patient is weightbearing as tolerated. They will receive 325 mg aspirin BID x 6 weeks for DVT prophylaxis, appropriate pain medications and 24 hours of appropriate antibiotic for infection prophylaxis. SPECIMENS: The femoral head, neck and synovium. PAIN COCKTAIL: 50cc of 0.25% Marcaine without epinephrine, 20cc of Exparel 266 mg, 1 cc of Morphine (10mg), 1 cc Toradol (30mg) injected into the periosteum and soft tissues EBL: 100 cc DRAINS: None. COUNTS: Correct. COMPLICATIONS: None. Operative Time: * Missing case tracking time(s) * Incision Start: 9:48 AM Incision Stop: 1117 SIGNATURE: Steven Guevara Jr, MD DATE: November 08, 2019 TIME: 11:07 AM Normal [facility] PLAN OF CARE 11-08-2019 PLAN OF CARE HNO ID: [id number] Author: Shelley Givens (Pharmacist) Service: Pharmacy Author Type: Pharmacist Type: Plan of Care Filed: 11/08/2019 1:57 PM Note Text: MEDICATION HISTORY Patient Name:Faustino Correa : 1960 Source of history:Patient: Reliability of source: Appears reliable, clearly identified: Medication name, Medication dose, Medication route, Medication frequency, Timing of last dose and Indications Medication Nonadherence Identified: No barriers noted The above information represents the best possible medication history: Yes Variance(s) from original prescription/clarifications: ? Amitriptyline 50 mg a bedtime , original 25mg ? Albuterol nebulizer every 6 hours as needed for SOB ? Carbidopa-levodopa - 1 tablet 4 times daily ? Hydroxyzine 50 mg at bedtime ? Misoprostol 4 times daily when needed ? Potassium citrate twice daily ? Promethazine 25 mg every 5 hours as needed for n/v ? Ranitidine once daily as needed for stomach upset ? Sucralfate 1 tablet 4 times daily when needed ? Medications Discontinued (Reason): ? 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 Past Week at Unknown time Yes acetaminophen (TYLENOL) 325 mg tablet Take 2 tablets by mouth every 6 hours as needed for Pain or Fever. Past Week at Unknown time Yes senna (SENOKOT) 8.6 mg tab Take 1 tablet by mouth twice daily. Past Week at Unknown time Yes tiZANidine (ZANAFLEX) 4 mg tablet Take 1 tablet by mouth every 8 hours as needed. TAKES 2 TAB AT HS Past Week at Unknown time Yes pregabalin (LYRICA) 300 mg capsule Take 300 mg by mouth twice daily. Past Week at Unknown time Yes diclofenac, EC, (VOLTAREN) 25 mg EC tablet Take 75 mg by mouth twice daily. Past Week at Unknown time Yes metFORMIN (GLUCOPHAGE) 1,000 mg tablet Take 1,000 mg by mouth twice daily with meals. 11/08/2019 at Unknown time Yes ezetimibe (ZETIA) 10 mg tablet Take 10 mg by mouth once daily. Past Week at Unknown time Yes budesonide-formoterol (SYMBICORT) 160-4.5 mcg/actuation inhaler Inhale 2 Puffs as instructed twice daily. 11/07/2019 at Unknown time Yes DULoxetine (CYMBALTA) 60 mg capsule Take 1 capsule by mouth once daily. Past Week at Unknown time Yes MULTIVIT-MIN/FA/LYCOPEN/LUTEI N (CENTRUM SILVER ULTRA MEN'S ORAL) Take 1 tablet by mouth once daily. Past Week at Unknown time Yes amitriptyline 25 mg ORAL tablet Take 50 mg by mouth daily at bedtime. TAKES 2 50 MG AT HS Past Week at Unknown time Yes Albuterol Sulfate 1.25 mg/3 mL INHALATION nebulizer solution Use 1 Ampule via nebulizer every 6 hours as needed for Wheezing/Shortness of Breath. 11/07/2019 at Unknown time Yes acarbose(PRECOSE 25 MG TAB) Take one(1) tablet three(3) times daily. 11/08/2019 at Unknown time Yes potassium citrate (UROCIT-K 10) 10 mEq ORAL TbSR Take one(1) tablet three times daily. Past Week at Unknown time Yes tamsulosin ER (FLOMAX) 0.4 mg cap 0.4 mg once daily. Unknown at Unknown time promethazine (PHENERGAN) 25 mg tablet 25 mg every 6 hours as needed for Nausea/Vomiting. Unknown at Unknown time aspirin 81 mg chewable tablet q 24 HR. 10/29/2019 mupirocin (BACTROBAN) 2 % ointment Apply to each nostril twice a day for the 5 days prior to surgery QUEtiapine (SEROQUEL) 25 mg tablet Take 1 tablet by mouth every evening. Unknown at Unknown time carbidopa-levodopa (SINEMET) 25-100 mg per tablet Take 1.5 tablets by mouth four times daily. Patient taking differently: Take 1 tablet by mouth four times daily. 11/05/2019 topiramate (TOPAMAX) 100 mg tablet Take 1 tablet by mouth twice daily. docusate sodium (COLACE) 100 mg capsule Take 1 capsule by mouth twice daily. Unknown at Unknown time ondansetron (ZOFRAN, HYDROCHLORIDE,) 4 mg tablet Take 1 tablet by mouth every 8 hours as needed. Unknown at Unknown time linaclotide (LINZESS) 145 mcg cap Take 145 mcg by mouth once daily. Unknown at Unknown time atorvastatin (LIPITOR) 10 mg tablet Take 10 mg by mouth once daily. 11/01/2019 miSOPROStol (CYTOTEC) 200 mcg tablet Take 200 mcg by mouth four times daily. Only Takes when needed for stomach upset Unknown at Unknown time urea (CARMOL) 40 % lotn Apply to affected area twice daily. Unknown at Unknown time clotrimazole-betamethasone (LOTRISONE) cream Apply to affected area twice daily. sildenafil (VIAGRA) 100 mg tablet Take 100 mg by mouth as needed. ranitidine (ZANTAC) 150 mg tablet Take 150 mg by mouth once daily as needed for GI Upset. Unknown at Unknown time hydrOXYzine HCl (ATARAX) 50 mg tablet Take 100 mg by mouth once daily. 11/05/2019 Aug Betamethasone Dipropionate (DIPROLENE) 0.05 % ointment APPLY TO THE AFFECTED AREA(S) ONCE DAILY magnesium hydroxide (MILK OF MAGNESIA) 400 mg/5 mL suspension Take 15 mL by mouth once daily as needed. Take if no BM > 48 hrs. Unknown at Unknown time sucralfate (CARAFATE) 1 gram tablet Take 1 tablet by mouth four times daily. Patient taking differently: Take 1 g by mouth four times daily as needed. Takes only when has stomach upset Unknown at Unknown time SHELLEY GIVENS, PHARMACIST November 08, 2019 1:53 PM [facility] PROGRESSon 11-08-2019 PROGRESS HNO ID: [id number] Author: Niesha JerryRt) Elpidio Cobb Service: ? Author Type: Automobile Dealer Type: Progress Notes Filed: 11/08/2019 12:05 PM Note Text: Radiology Service Progress Note PATIENT NAME: Alisia Correa DATE OF SERVICE: November 08, 2019 TIME: 12:05 PM PATIENT IDENTITY VERIFICATION COMPLETED USING TWO (2) IDENTIFIERS: Name and Date of confirmed by identification band. PATIENT GENDER DATA: Male PATIENT RELEVANT IMPLANT DATA REVIEWED: Not Applicable RADIOLOGY DEPARTMENT: General X-ray: Exam(s) Completed: Pelvis X-Ray: Pelvis General AP PERIPHERAL IV DATA: Not applicable SIGNED BY: Dina PUENTES November 08, 2019 12:05 PM [facility] PT EDon 11-08-2019 PT ED HNO ID: [id number] Author: Catherine JerryRn) ALFONSO Basurto Service: Nursing Author Type: Registered Nurse Type: Patient Education Filed: 11/08/2019 8:22 AM Note Text: PRE OP LEARNING ASSESSMENT PROCEDURE/SURGERY: SURGERY: ARTHROPLASTY REPLACE JOINT TOTAL HIP - Left READINESS TO LEARN COGNITIVE ABILITY: Alert and oriented MOTIVATION TO LEARN: Eager FAMILY SUPPORT: None - Unavailable/disinterested PATIENT LEARNS BEST BY: Individual Instruction FACTORS AFFECTING LEARNING: None PHYSICAL LIMITATIONS AFFECTING LEARNING: None Electronically Signed By: Catherine Basurto RN In Department: [facility] SURGERY Normal [facility] SURGICAL PATHOLOGYon 020 SURGICAL PATHOLOGY Specimen originated from [facility] Specimen #: [id number] Submitting Physician: STEVEN GUEVARA JR, MD FINAL DIAGNOSIS Left hip, arthroplasty - Degenerative joint disease. /deb 11/14/2019 Bhupendra Ochoa M.D. (Electronic Signature) SPECIMEN SUBMITTED A: LEFT HIP BONE AND SOFT TISSUE CLINICAL DATA OSTEOARTHRITIS OF LEFT HIP GROSS DESCRIPTION A. Received in formalin designated bone, soft tissue left hip is a femoral head with portion of neck which measures approximately 5.5 x 4.8 x 4.7 cm. Examination of the articular surface reveals eburnation and cartilage roughening. Also received in the same container are multiple segments of soft tissue, bone shavings and hemorrhagic material which aggregate to 8.5 x 5.7 x 2 cm. The soft tissue is grossly unremarkable. Sectioning does not reveal any avascular necrosis. Dealer Account Manager sections are submitted as follows: A1 soft tissue, A2 bone submitted after decalcification. BF/slb 11/08/2019 Gross examination performed at [facility], [address] [place], [place] [address] [address] Date of Report: 11/14/2019 Date of Procedure: 11/08/2019 Date of Receipt: 11/08/2019 Submitted by: STEVEN GUEVARA JR, MD Location: [facility] Diagnostic interpretation performed at [facility], [address] [facility], [facility] [address]. CLIA Number: [id number] Normal [facility] Reference Lab Comment on above: Performed By: #### S #### See report for performing lab information. THERAPY NTon 11-08-2019 THERAPY NT HNO ID: [id number] Author: Oumou Witt (Pt) Fabio Service: Physical Therapy Author Type: Physical Therapist Type: Therapy (PT/OT/Speech/Resp) Filed: 11/08/2019 2:54 PM Note Text: Physical Therapy Evaluation SERVICE DATE: 11/08/2019 SERVICE TIME: 1325 to 1415(8 min for pharmacist to review meds) ROOM: [place] [address] Recommended Discharge Disposition: Outpatient Physical Therapy Recommended Discharge Equipment: No equipment needs anticipated PT Recommendations to Nursing: Ambulate with device;To bathroom;In halls;Transfer to/from chair;OOB for Meals;With assist of 1 person Device: Standard Walker PT 6 Clicks Score: 20 Precautions/Activity Restrictions: Total Hip Replacement;Weight Bearing Restrictions;Hip Precautions - Posterior Dislocation(S/P L DAYTON (Ismael)) Extremity With Weight Bearing Restricted: Left Lower Extremity Left Lower Extremity Weight Bearing Status: WBAT Total Hip Replacement Precautions: Posterior ASSESSMENT : Patient presents with decreased ROM, strength, and mobility s/p L DAYTON. Pt from home with spouse, using cane all the time, reports h/o falls d/t Parkinson's (dx in the last year), drives and is retired. Reviewed hip precautions. Pt was issued a total joint packet and instructed on anti-embolics, supine and seated exercises. Pt able to stand with CGA and was instructed on step-to sequence with SW- pt ambulated with slow gait but no LOB or buckling. Pt plans to return home with OP PT. Plan to progress ambulation and practice steps as pt is able to tolerate. Patient Disposition at Start of Session: Supine in Bed Patient Disposition at End of Session: OOB in Chair Tolerated Full Session Physical Therapy Problem List: Decreased Range Of Motion;Decreased Strength;Functional Mobility Impairment;Balance Impaired Patient /Caregiver Goals: Go Home Goals for Plan of Care: Able to perform HEP with: Supervision Transfer supine to/from sit with: Supervision Transfer sit to/from stand with: Supervision Ambulate with: Supervision Distance: 100 Device: Standard Walker Ambulate up and down steps with: Stand By Assistance Number of steps: 3 Device: Rail;Cane ROM: 0-90 L hip Rehab Potential: Good PLAN: Treatment Frequency (times per week): 7 Current admission Treatment Interventions: Education;Joint Mobility;Strengthening;Functi onal Mobility Training Plan of Care developed with: Patient TREATMENT INTERVENTIONS: Therapy Diagnosis: Reduced mobility-other Interventions Provided: Evaluation;Therapeutic Exercise (20843);Gait Training (84705);Therapeutic Activity (45770) $ Evaluation-Low (05777) Billed Units: 1 unit Therapeutic Exercise (26194) Treatment Minutes: 12 1 unit Skilled Intervention(s): Instruction in therapeutic exercise Verbal and tactile cuing provided Pt performed in supine position: AP, QS, GS x 10 B LE, pt instructed to do every hour while awake on their own. HS, HIP ABD X10 B LE Pt instructed on using a sheet to A with L LE Pt performed in seated position: LAQ X10 B LE Therapeutic Activity (02907) Treatment Minutes: 3 Skilled Intervention(s): Instructed patient in supine to sit pushing with upper extremities to sit up Gait Training (51302) Treatment Minutes: 12 1 unit Skilled Intervention(s): Instruction in sit to stand technique with proper hand placement and body positioning at edge of bed/chair, Instruction in stand to sit technique with LE's touching chair/bed and reaching back for surface, Instruction in sequencing, gait pattern, Instruction in correction of gait deviations, Instruction in WB precautions and Instruction in use of equipment, cues for sequence and pattern Total Timed Code Treatment Minutes: 27 Total Treatment Time (minutes): 42 SUBJECTIVE: Current Hospital Course: Chart reviewed; Pt with increased L hip pain and elected to have L DAYTON 11/08 (Ismael) Reason for Physical Therapy Consult : s/p L DAYTON Relevant Past Medical History: DM, COPD, Parkinson's Patient Report: Pt in bed, awake and pleasant, agreeable to therapy. Home Environment Patient Lives With: Spouse Assistance Available: 24 Hour(spouse works but is off this week) Entry To Home: With Rail;Stairs Number Of Stairs Into Home: 2 Number Of Stairs To Bed/Bath: 1st floor bed and bath Tub/Shower Type: WIS with shower chair, grab bars, HHS Laundry: 1ST FLOOR Equipment Owned: Cane;Hand Held Shower;Grab Bars-Shower;Standard Walker;Commode-Raised;Shower Chair;Lift Chair Prior Functional Level: Within Functional Limits Prior Functional Level Comments: IND ADLs and amb, + drive, retired OBJECTIVE: CURRENT FUNCTIONAL STATUS: Current Functional Mobility Assist Level Additional Information Rolling Supine to Sit Stand By Assistance(HOB ~60 deg) Sit to Supine Scooting Stand By Assistance Sit to Stand Contact Guard Assistance Stand to Sit Contact Guard Assistance Bed to Chair Toilet/Commode Gait Stand By Assistance Gait Device: Standard Walker Gait Distance (feet): 60 Stairs Curb Step Car Transfer Gait Deviations Left Lower Extremity: Weight bearing decreased;Stance time decreased;Heel strike during initial stance decreased;Push-off during terminal stance decreased Range of Motion: WFL Except(L hip AA flexion ~90 deg) Strength: WFL Except(L hip <3/5) -HLM: 7: Walk 25 feet or more Please see discipline specific clinical documentation flowsheet for complete details for this therapy evaluation/treatment. SIGNATURE: Oumou Mccarthy, PT PATIENT NAME: Alisia Correa DATE: November 08, 2019 TIME: 2:49 PM [facility] XR PELVIS 1V APon 11-08-2019 XR PELVIS 1V AP * * *Final Report* * * DATE OF EXAM: Nov 08 2019 12:04PM VHX 5239 - XR PELVIS 1V AP / PROCEDURE REASON: Post-operative / post-procedure assessment, symptomatic * * * * Physician Interpretation * * * * HISTORY: Post-operative / post-procedure assessment, asymptomatic PELVIS: TECHNIQUE: A single frontal portable view of the pelvis is obtained following the surgery. RESULT: Comparison: 07/18/2019 A left total hip prosthesis is noted in good alignment on this single frontal view. No evidence of fracture or joint dislocation is noted. Subcutaneous air densities are noted in the left hip area from recent surgery. IMPRESSION: Left total hip prosthesis in place. Investigator Operator: ARPIT Transcribe Date/Time: Nov 08 2019 12:43P Dictated by : LIGIA EDWARDS MD This examination was interpreted and the report reviewed and electronically signed by: LIGIA EDWARDS MD on Nov 08 2019 12:44PM EST [id number] [facility] NURSING PROGon 10-24-2019 NURSING PROG HNO ID: [id number] Author: Geneva (Rn) ALFONSO Goins Service: Nursing Author Type: Registered Nurse Type: Nursing Progress Note Filed: 10/24/2019 1:43 PM Note Text: PACC Nurse Progress Note History AND Physical: PACC Visit Date: 10-18-19 Original HANDP Date: N/A ED visit Date: N/A Outside HANDP Scanned Date: N/A Labs Within Last 6 Months: CBC: Date 10-18-19 BMP/CMP: Date 10-18-19 PT: Date 10-18-19 UA: Date 10-18-19 Urine C+S: Date 10-18-19 treated by provider STAAMP: Date 08-18-19 positive for staph and treated by the surgeon TYPE AND SCREEN: Date 10-18-19 Imaging Within Last 12 Months: N/A Cardiac Testing: EKG in last 12 Months: Yes: Date: 10-18-19, Comment: epic BMI Percentile (PEDS): N/A Risk Assessment: N/A Anesthesia Review: N/A Narrative: N/A Pre-op Considerations: Diabetic Has spinal cord stimulator Chart Check: COMPLETED Geneva Goins RN October 24, 2019 1:40 PM [facility] Type and SCR (30D)on 019 ABO/RH(D) Negative [facility] CNCOon 01-01-2018 CNCO Letter TextCharjuanito Correa [id number] [place], [place] [id number] Kenny CorreaHgbxl[address] [address]Asao Mr. Correa:The nurses and staff of the 5th floor Orthopedic nursing unit at [facility], a [facility], hope this letter finds you feelingwell and progressing in your recovery. Our team would like to thank you fortrusting and choosing us for your orthopedic needs. It was an honor for usto provide your nursing care. We know that placing our patients first andmaintaining a culture of continuous improvement each and every day isessential to the success of our organization.I hope that you have found your stay with us to have been positive. We wantto hear from you. If you have any comments, questions, or concerns about yourhospital stay please feel free to contact me, Dianna Villarreal at [phone] [email or web address].Additionally, you will receive a survey in the mail asking you to rate thecare you received while in the hospital. Please take the time to completeand send back the survey, as it is essential to our continued success. Ipersonally review all the results and would appreciate your feedback.Thank you in advance for your participation and thank you for choosing [facility] for your healthcare needs. Sincerely,Dianna Villarreal, MSN, RNNurse Keivbpn5ac Floor OrthopedicSanta Teresita [email or web address] Normal [facility] Basic Metabolic Panlon 12-31 Anion gap 9 mmol/L Normal 0-15 [facility] Calcium 8.3 mg/dL Low 8.5-10.5 [facility] Chloride 104 mmol/L Normal 98-110 [facility] CO2 25 mmol/L Normal 23-32 [facility] Creatinine 0.98 mg/dL Normal 0.7-1.4 [facility] Glucose mass conc 125 mg/dL High 65-100 [facility] Potassium molar conc 3.5 mmol/L Normal 3.5-5.0 [facility] Sodium 138 mmol/L Normal 135-146 [facility] Urea nitrogen 15 mg/dL Normal 8-25 [facility] CASE MANAGEMon 12-31-2017 CASE MANAGEM HNO ID: [id number] thor: Peace (Rn) JAMIE Bynumervice: Case ManagementAuthor Type: Registered NurseType: Care Mgt Progress NoteFiled: 12/31/2017 10:44 AMNote Text:CARE MANAGEMENT DISCHARGE NOTESERVICE DATE: 12/31/2017SERVICE TIME: 10:40 AM LOS: 2 daysAdmission Date: 12/29/2017DISCHARGE ARRANGEMENT (list agency and phone number)HomeProvider: Dr Perez Phone: .CAREGIVER ASSESSMENT:Caregiver is ready, willing and able to meet the patient's needs asrecommended by the inter-professional team? YesPatient's transition needs and plan for meeting these needs: outpt f./uDoes the patient have an acute stroke diagnosis, or has the patient had astroke during this admission? NoHANDOFF COMMUNICATION:call to PCP officeTRANSPORTATION ARRANGEMENTS:Car familyADDITIONAL CONTACT RESOURCES: .Needs Prior to Discharge: Ready for DischargePatient to dc home w. Self care and outpt f.u. Dc instructions per nursingstaff. No further needs at this time. Handoff report completed, dc summaryto be faxed, wendy BustosIGNATURE: Peace Bynum RN PATIENT NAME: Alisia CorreaDATE: December 31, 2017 : 10:40 AM PAGER/CONTACT #: [phone] Normal [facility] CBCon 12-31-2017 Erythrocyte distribution width Auto Ratio (RBC) 15.3 % High 11.5-15.0 [facility] Erythrocytes (RBC) 3.45 10*6/uL Low 4.20-6.00 [facility] Hematocrit (HCT) 29.7 % Low 39.0-51.0 [facility] Hemoglobin mass conc (Bld) 9.6 g/dL Low 13.0-17.0 [facility] MCH 27.8 pG Normal 26.0-34.0 [facility] MCHC mass conc (RBC) 32.3 g/dL Normal 30.5-36.0 [facility] MCV 86.1 fL Normal 80.0-100.0 [facility] Platelet mean volume (PMV) 13.3 fL High 9.0-12.7 [facility] Platelets 112 10*3/uL Low 150-400 [facility] Comment on above: Result Comment: Samp le checked for a clot. WBC (Leukocytes) 6.00 10*3/uL Normal 3.70-11.00 [facility] CNDSon 12-31-2017 CNDS HNO ID: [id number] thor: Candida (Res) StarodService: Orthopaedic SurgeryAuthor Type: ResidentType: Discharge SummariesFiled: 01/01/2018 7:33 AMNote Text: At testation signed by Sergey Perez at 01/01/2018 11:35 Rayna Perez MD ORTHO PEDIC SURGERYDISCHARGE SUMMARYADMISSION DATE: 12/29/2017DISCHARGE DATE: 12/31/17Attending Physician: Sergey Salinas for Hospitalization: GH arthritisAdmitting Diagnosis: GH OADischarge Diagnosis: GH OAAdditional Diagnoses:ACTIVE PROBLEM LISTSPRAIN OF NECK ()Spinal Stenosis in Cervical RegionBrachial Neuritis Or RadiculitisDisplacement of Thoracic Intervertebral Disc Without MyelopathyCarpal Tunnel SyndromeSPRAIN OF NECK ()Displacement of Cervical Intervertebral Disc Without MyelopathyBrachial Neuritis Or Radiculitis NOSSpinal Stenosis, Lumbar Region, Without Neurogenic ClaudicationRotator Cuff Syndrome of Shoulder and Allied DisordersPsychosexual Dysfunction, UnspecifiedUrgency of UrinationOther and Unspecified Malignant Neoplasm of Skin of LipImpotence of Organic OriginFrequency of UrinationSlow Urinary StreamMicrostomiaHypertrophy of Prostate With Urinary Obstruction and Other Lower UrinaryTract Symptoms (Luts)Postlaminectomy Syndrome of Lumbar RegionGlenohumeral ArthritisPrimary Osteoarthritis of Left KneeType 2 Diabetes Mellitus Without Complication, Without Long-Term CurrentUse of Insulin (Hcc)Chronic Pain SyndromeCopd With Chronic Bronchitis (Hcc)Arthritis of KneePrimary Osteoarthritis of Right KneeOa (Osteoarthritis) of KneeGlenohumeral Arthritis, LeftEssential TremorAsthmaDiabetes Mellitus (Hcc)Essential HypertensionHyperlipidemiaUlc erative LesionShoulder ArthritisSurgeries During Hospitalization: Procedure(s) (LRB):ARTHROPLASTY TOTAL SHOULDER; W/ GLENOID AND PROXIMAL HUMERAL REPLACEMENT(Left)Consultation s: Physical TherapyCase ManagementInternal MedicineHospital Course:The patient is a 57 year old male who has been followed by Dr. Sergey Reynaga MD in clinic for L glenohumeral arthritis. It was determinedhe would benefit from surgery. The procedure, its risks, benefits, andpotential complications were discussed in detail with the patient prior tosurgery. Understanding of all topics was conveyed by the patient, andconsent was given for surgery. [facility] Surgery was scheduledand on 12/29/2017 he underwent a Procedure(s) (LRB):ARTHROPLASTY TOTAL SHOULDER; W/ GLENOID AND PROXIMAL HUMERAL REPLACEMENT(Left) with GETA. The procedure was tolerated well and he was sent to thepost operative recovery room in stable condition, where he also did well.Post operative x-rays in the recovery room showed appropriate prostheticalignment. He was subsequently sent to his hospital room for postoperativemanagement.Once on the floor his postoperative course was unremarkable and he didwell. His diet was advanced which he tolerated. His pain was wellcontrolled on PO and IV; this was eventually transitioned to oralmedication alone prior to discharge. He worked with Physical andOccupational Therapy starting on POD#1 who recommended he be dischargedhome. He was stable for discharge to home on POD#2.Complete and comprehensive discharge instructions were provided to thepatient as well as necessary prescriptions. The patient had no furtherquestions and was advised to call with any questions, concerns, orproblems.Patient was hemodynamically stable postoperatively.Relevant labs included:Hemoglobin (g/dL)Date Value12/31/2017 9.6 (L)12/30/2017 9.7 (L)12/07/2017 13.4Hematocrit (%)Date Value 29.7 (L)12/30/2017 29.6 (L)12/07/2017 43.5Discharge Antibiotics: None Prior to surgery the patient was treated withantibiotics and continued with antibiotics 24 hours postoperativelyTransfers: PACU and then to the hospital surgical floor when PACU criteriawas met.DVT Prophylaxis: scdsPain Control: Oral narcoticsComplications: Internal medicine was consulted for post op medicalmanagement.Patient Condition @ Discharge: StableDischarge Disposition: Home/Self CareOther Information: NoneDischarge Activity/Weight Bearing Status: Non-weight bearing and SlingInformation Provided to Patient: Heart Failure Material Given Addressing:Activity, Diet/Fluid Management, Medication Compliance, Follow-Up withPhysician, Smoking Cessation, What to do if CHF Symptoms Worsen AND DailyWeight MonitoringStroke Material Given Addressing: Signs and Symptoms of a Stroke, When toCall 911, Modifiable Risk Factors, Need for Follow-Up After Discharge,Medication Compliance and Smoking Cessation AdviceSmoking Cessation Material GivenThe patient was instructed to follow-up in 10-14 days.Future AppointmentsDate Time Provider Department Center01/06/2018 11:40 AM Cisco Krishnan NRESMN [facility] S Bldg01/12/2018 10:00 AM Evangelist (Rn) ALFONSO Gilliland ORTHEU [facility]02/08/2018 2:00 PM XR [facility] RGNEU [facility]02/08/2018 2:30 PM Sergey Perez [facility]03/08/2018 9:20 AM Dusty Montgomery NEURAV REJDischarge Medications: Discharge Medication List as of 12/31/2017 12:41 PMSTART taking these medicationsoxyCODONE-acetamin ophen (PERCOCET) 5-325 mg tabletTake 1-2 tablets by mouth every 4 hours as needed for up to 7 days. forpain. Major ortho surgery requiring increased need for narcotic paincontrol.Print RX, Disp-60 tablet, R-0Dx: 1. Rotator cuff syndrome of shoulder and allied disorders, unspecified lateralityCONTINUE these medications which have CHANGEDdocusate sodium (COLACE) 100 mg capsuleTake 1 capsule by mouth twice daily.Print RX, Disp-60 capsule, R-2Dx: 1. Rotator cuff syndrome of shoulder and allied disorders, unspecifiedlateralityondanset jeri (ZOFRAN, HYDROCHLORIDE,) 4 mg tabletTake 1 tablet by mouth every 8 hours as needed.Print RX, Disp-10 tablet, R-0Dx: 1. Rotator cuff syndrome of shoulder and allied disorders, unspecifiedlateralityCONTINUE these medications which have NOT CHANGEDdiclofenac, EC, (VOLTAREN) 25 mg EC tabletTake 75 mg by mouth twice daily.Historical Medmupirocin (BACTROBAN) 2 % ointmentApply 1 application to affected area three times daily. Apply to affectedarea tid.Normal, Disp-1 Tube, R-0metFORMIN (GLUCOPHAGE) 1,000 mg tabletTake 1,000 mg by mouth twice daily with meals.Historical Medpregabalin (LYRICA) 150 mg capsuleTake 150 mg by mouth twice daily.Historical Medlinaclotide (LINZESS) 145 mcg capTake 145 mcg by mouth once daily.Historical Med, Long-termprimidone (MYSOLINE) 50 mg tabletTake 1 tablet by mouth daily at bedtime.Normal, Disp-30 tablet, R-2, Long-termatorvastatin (LIPITOR) 10 mg tabletTake 10 mg by mouth once daily.Historical Med, Long-termezetimibe (ZETIA) 10 mg tabletTake 10 mg by mouth once daily.Historical Med, Long-termtraMADol 200 mg 24 hr tabletTake 1 tablet by mouth once daily for 90 days.Print RX, Disp-30 tablet, R-2, Long-termDx: 1. Spinal stenosis, lumbar region, without neurogenic claudication 2.Displacement of cervical intervertebral disc without myelopathy 3.Displacement of thoracic intervertebral disc without myelopathy 4.Brachial neuritis or radiculitisacetaminophen (TYLENOL) 325 mg tabletTake 2 tablets by mouth every 6 hours as needed for Pain or Fever.Normal, Disp-60 tablet, R-0aspirin, enteric coated (ECOTRIN LOW STRENGTH) 81 mg EC tabletTake 1 tablet by mouth once daily.Med Update, R-0Dexlansoprazole (DEXILANT) 60 mg CpDMTake by mouth twice daily.Historical MedmiSOPROStol (CYTOTEC) 200 mcg tabletTake 200 mcg by mouth four times daily. Takes 200mg with meals and atbedtime.Historical Medurea (CARMOL) 40 % lotnApply to affected area twice daily.Historical Medclotrimazole-betamethasone (LOTRISONE) creamApply to affected area twice daily.Historical Medsildenafil (VIAGRA) 100 mg tabletTake 100 mg by mouth as needed.Historical Medtopiramate (TOPAMAX) 100 mg tabletTake 2 tablets by mouth twice daily.Normal, Disp-120 tablet, R-5tiZANidine (ZANAFLEX) 4 mg tabletHistorical Medranitidine (ZANTAC) 150 mg tabletonce daily.Historical MedhydrOXYzine HCl (ATARAX) 50 mg tabletevery 6 hours as needed for Anxiety.Historical MedAug Betamethasone Dipropionate (DIPROLENE) 0.05 % ointmentAPPLY TO THE AFFECTED AREA(S) ONCE DAILYHistorical Med, R-1magnesium hydroxide (MILK OF MAGNESIA) 400 mg/5 mL suspensionTake 15 mL by mouth once daily as needed. Take if no BM > 48 hrs.Print RX, Disp-120 mL, D-5pjrbsxinhr-soppbmizqj (SYMBICORT) 160-4.5 mcg/actuation inhalerInhale 2 Puffs as instructed twice daily.Med Update, R-0DULoxetine (CYMBALTA) 60 mg capsuleTake 1 capsule by mouth once daily.Med Update, R-0sucralfate (CARAFATE) 1 gram tabletTake 1 tablet by mouth four times daily.Med Update, A-6ODZHKOIQ-AAB/FA/LYCOPEN/ROBERT TEIN (CENTRUM SILVER ULTRA MEN'S ORAL)Take 1 tablet by mouth once daily.Historical Medamitriptyline 25 mg ORAL tabletTake 50 mg by mouth daily at bedtime.Historical Med, R-0tamsulosin (FLOMAX) 0.4 mg ORAL Qq46Tzck 2 capsules by mouth daily at bedtime.Mail Order, ORAL, Disp-180 capsule, R-3AT BEDTIME Starting 10/22/2011, Until Discontinued, Dx: 4. BPH W URINARYOBS/LUTSAlbuterol Sulfate 1.25 mg/3 mL INHALATION nebulizer solutionVIA NEBULIZER PRN, NEBULIZATION -UNSPEC, Historical Med Other Provideracarbose(PRECOSE 25 MG TAB)Take one(1) tablet three(3) times daily., Disp-1 month supply, R-3, ORAL,Print RX, Dx: 1. HYPOGLYCEMIA, UNSPECIFIED 2. OBESITY, UNSPECIFIEDpotassium citrate (UROCIT-K 10) 10 mEq ORAL TbSRTake one(1) tablet three times daily., R-0, ORAL, Historical Med OtherProviderSIGNATURE: Candida Pat MD PATIENT NAME: Alisia CorreaDATE: December 31, 2017 : 6:26 AM PAGER: [phone] [facility] NURSING PROGon 12-31-2017 NURSING PROG HNO ID: [id number] thor: Charlotte Crowe (Rn) Hipolito, RNService: (none)Author Type: Registered NurseType: Nursing Progress NoteFiled: 12/31/2017 2:04 PMNote Text: Nursing Progress NotePatient Name: Alisia SimsN: [id number] Location: MT-506/ MT-* Daily Note:0800 awake, alert for am assessment. Left shoulder dressing dry, intact.Good radial pulse. Fingers warm, mobile. Denies numbness, tingling. Ratespain 5. Ice to shoulder, pain meds discussed. Plan of care discussed. Upto bathroom, back to chair for breakfast.1300 pain well controlled with on-q, po pain meds. Taking diet well.Voiding in bathroom without difficulty. Discharge instructions given withvoiced understanding.1355 discharged by wheelchair after seen by OT.This note was completed by: Charlotte Mcmillan RN [facility] PROGRESSon 12-31-2017 PROGRESS HNO ID: [id number] thor: Macrina (Ceo & Founder) DionService: General Internal MedicineAuthor Type: Nurse PractitionerType: Progress NotesFiled: 12/31/2017 5:07 PMNote Text:INPATIENT PROGRESS NOTESName: Alisia CorreaMRN: [id number] of Service: December 31, 2017SUBJECTIVE: Seen and examined at bedside.Patient states pain is level 4-5 now. He denies any dizziness/lightheadedness. He denies nausea orvomiting, chest pain, palpitations or shortness of breath.PERTINENT ROS:All others reviewed and negative except as per HPIMEDICATIONS:No current hospital medications on file.PHYSICAL EXAM: 12/30/1821031BP: 91/65 119/63 110/62 105/66Pulse: 88 95 75 87Resp: 18 18 18 18Temp: 37.3 ?C (99.1 ?F) 37.7 ?C (99.9 ?F) 37.7 ?C (99.9 ?F) 37.1 ?C (98.8?F)TempSrc: Oral Oral Oral OralSpO2: 95% 95% 93% 97%Weight:Height:GEN: well appearing, male, in no acute distress.SKIN: skin color, texture, turgor normal, no suspicious rashes or lesions.NECK: no JVD. Supple, no carotid bruitsLUNGS: Clear MARIXA. No wheezes.CV: RRR. Normal s1/s2. No murmurs appreciated.ABD: Soft, non-tender, non-distended. Bowel sounds present.EXT: surgical dressing to left shoulder intact, dry. No edema. Peripheralpulses present. Calves soft and non-tender bilaterally. Sling and Q-chalo place. Fingers warm and mobile.NEURO: alert oriented x3 Grossly intact. No focal deficits.DATA:CBC, Coags, BMP, Mg, PhosRecent Labs 12/31/1803WBC 6.00 7.10HB 9.6* 9.7*HCT 29.7* 29.6*PLT 112* 128*NA 138 --K 3.5 --CHLOR 104 --CO2 25 --BUN 15 --CREAT 0.98 --GLUC 125* --CA 8.3* --ASSESSMENT AND PLAN:Postoperative anemia due to acute blood loss [D62]: hgb 9.6. Patient isasx and VSS.Thrombocytopenia[D69.6]: plt 112 this morning. No unusual bruising orbleeding noted. Cbc in 1 week, instructed patient to follow upPrimary osteoarthritis of left shoulder [M19.019], Status post totalreplacement of left shoulder [Z96.619]: with DR Perez. Continue withPT/OT. Encourage strict IS.Acute postoperative pain of left shoulder[G89.18]:Pain somewhat controlledsee HPI . Pain control goals were discussed. Continue with currentmedications. Control pain with meds ordered and Q-ball adjustments.Constipation [K59.00]: continue with bowel regimen while taking painmedications.DVT ppx:SCDs. Ambulation with PT/OTHome todayDiscussed and developed plan of care with Dr. lBair.Macrina Paddy, CNPMarch 20175:00 PM Normal [facility] PROGRESS HNO ID: [id number] thor: Candida (Res) MahmoodService: Orthopaedic SurgeryAuthor Type: ResidentType: Progress NotesFiled: 12/31/2017 6:26 AMNote Text:ORTHOPAEDIC SURGERY PROGRESS NOTEPatient: Alisia CorreaMRN: [id number]: Procedure(s) (LRB):ARTHROPLASTY TOTAL SHOULDER; W/ GLENOID AND PROXIMAL HUMERAL REPLACEMENT(Left)Date: 12/29/2017Staff: Sergey MonroeiIMPRESSION/PLAN: a 57 year old male s/p Left TSA- Pain: PO and IV--medicine co-managing- WB status: Left NWB- PT/OT--FF 0-120- Dressing soft, dry--change prn- Abx: Discontinuing Antibiotics after 24 hours- Diet: HLIV once tolerating PO, Full diet- DVT ppx: SCDs- Dispo: home todayACTIVE PROBLEM LISTSPRAIN OF NECK ()Spinal Stenosis in Cervical RegionBrachial Neuritis Or RadiculitisDisplacement of Thoracic Intervertebral Disc Without MyelopathyCarpal Tunnel SyndromeSPRAIN OF NECK ()Displacement of Cervical Intervertebral Disc Without MyelopathyBrachial Neuritis Or Radiculitis NOSSpinal Stenosis, Lumbar Region, Without Neurogenic ClaudicationRotator Cuff Syndrome of Shoulder and Allied DisordersPsychosexual Dysfunction, UnspecifiedUrgency of UrinationOther and Unspecified Malignant Neoplasm of Skin of LipImpotence of Organic OriginFrequency of UrinationSlow Urinary StreamMicrostomiaHypertrophy of Prostate With Urinary Obstruction and Other Lower UrinaryTract Symptoms (Luts)Postlaminectomy Syndrome of Lumbar RegionGlenohumeral ArthritisPrimary Osteoarthritis of Left KneeType 2 Diabetes Mellitus Without Complication, Without Long-Term CurrentUse of Insulin (Hcc)Chronic Pain SyndromeCopd With Chronic Bronchitis (Hcc)Arthritis of KneePrimary Osteoarthritis of Right KneeOa (Osteoarthritis) of KneeGlenohumeral Arthritis, LeftEssential TremorAsthmaDiabetes Mellitus (Hcc)Essential HypertensionHyperlipidemiaUlc erative LesionShoulder ArthritisSUBJECTIVE:No acute issue overnight, Comfortable, pain is better controlled,afebrile, No CP/SOBOBJECTIVE:VITAL SIGNS:BMI: Body mass index is 33.49 kg/(m2). 12/30/1817BP: 91/54 91/65 119/63 110/62Pulse: 80 88 95 75Resp: 18 18 18 18Temp: 37 ?C (98.6 ?F) 37.3 ?C (99.1 ?F) 37.7 ?C (99.9 ?F) 37.7 ?C (99.9?F)TempSrc: Oral Oral Oral OralSpO2: 93% 95% 95% 93%Weight:Height:INTAKE AND OUTPUT:Intake/Output Summary (Last 24 hours) at 12/31/17 0626Last data filed at 12/30/17 2200 Gross per 24 hourIntake 1200 mlOutput 275 mlNet 925 mlPHYSICAL EXAMINATION:Gen: AOx3, NAD, nontoxic in appearance, conversational and appropriateCV: RRR to peripheral palpationPulm: Unlabored symmetric breathingABD: Non-tender, non-distendedMSK exam:LUEDressing c/d/Sarah PIN ulnar, ax intactSILT m/u/r/ax2+ radialLABS:CBC, Coags, BMP, Mg, PhosRecent Labs 12/31/1803WBC 6.00 7.10HB 9.6* 9.7*HCT 29.7* 29.6*PLT 112* 128*NA 138 --K 3.5 --CHLOR 104 --CO2 25 --BUN 15 --CREAT 0.98 --GLUC 125* --CA 8.3* --DATA:Diagnostic tests reviewed for today's visit:Most recent labsMost recent imagingCandida Pat MD12/30/2017Orthopaedic Surgery PGY-2Pager: [phone] [facility] THERAPY NTon 12-31-2017 THERAPY NT HNO ID: [id number] thor: Cyn (Ot) PacoerService: Occupational TherapyAuthor Type: Occupational TherapistType: Therapy (PT/OT/Speech/Resp)Filed: 01/04/2018 4:15 PMNote Text:Occupational Therapy TreatmentSERVICE DATE: 12/31/2017SERVICE TIME: 1300 to 1338ROOM: [facility] [id number] Discharge Disposition: HomeAnticipated Discharge Needs: Physical Assist at HomePhysical Assist at Home for: Cleaning;Laundry;SelfCare;Tammy pping;TransportationOT Recommendations to Nursing: ADL?s in chair;OOB for mealsOT 6 Clicks Score: 21Precautions/Activity Restrictions: Weight Bearing Restrictions;ShoulderPrecauti onsPrecaution/Activity Restriction Comments: hand,wrist,elbow, AROM OKExtremity With Weight Bearing Restricted: Left Upper ExtremityLeft Upper Extremity Weight Bearing Status: NWBShoulder Precautions: External rotation limitation;Forward elevationlimitation;No pendulumsShoulder External Rotation Limited To: neutralShoulder Forward Elevation Limited To: 0-120 degreesASSESSMENT:Patient Disposition at Start of Session: OOB in ChairPatient Disposition at End of Session: (sitting on edge of bed)Tolerated Full SessionOccupational Therapy Problem List: Education Deficit;CognitiveDeficit;Pain ;Edema;Safety Deficits;Impaired Self Care (appears someconfusion and slow to respond)Patient /Caregiver Goals: Go HomeGoals for Plan of Care:Upper Body Bathing with: IndependentUpper Body Dressing with: IndependentLower Body Bathing with: IndependentLower Body Dressing with: IndependentChair Transfer with: IndependentToilet Transfer with: IndependentProgress Toward Goals: Progressing as expectedRehab Potential: GoodPLAN:Treatment Frequency (times per week): 2 Current admissionTreatment Interventions: Education;Self Care / Home Management;FunctionalMobility Training;Wound Care Management;Edema Management;Pain ManagementPlan of Care developed with: PatientTREATMENT INTERVENTIONS:Therapy Diagnosis: Reduced mobility-other;Decreased activities of dailyliving (ADL)Interventions Provided: Self Snf Management (72893);TherapeuticExercise (51152)Therapeutic Exercise (67757) Treatment Minutes: 101 unitSkilled Intervention(s): Instruction in therapeutic exerciseFacilitation of muscle control, optimal recruitment and alignmentEducation in PROM in supine to L shoulder to 90 degrees. present and follow instruction,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 12/07/2017Chloride 103 12/07/2017CO2 25 12/07/2017Protein, Total 7.3 12/07/2017Albumin 4.4 12/07/2017Calcium 9.5 12/07/2017Alkaline Phosphatase 85 12/07/2017Bilirubin, Total <0.2 12/07/2017AST 29 12/07/2017ALT 26 12/07/2017Adequate NPO status: YesAnesthetic risks, benefits, alternatives, personnel and consent discussed:YesPatient agrees to proceed: YesPrevious Anesthesia: no h/o adverse eventsAirway Assessment: MP 1; Neck ROM: Full ROM without neurologic symptoms;Airway Evaluation: No significant abnormalitiesDentition: Teeth intactSymptoms of Sleep Apnea: use to have diagnosis of YOLA, since gastricbypass surgery, no more YOLA.Blood Products: Not anticipated for this procedure. and Will acceptBlood/Blood Products.Anesthetic Plan: General; Standard ASA MonitorsPain Management Plan: Parenteral or Oral and Peripheral Nerve BlockASA Class: 3Other Medical Problems: See HANDPMedications taken today: NoneChronic Beta Ching medication administered within 24 hours: N/AI have interviewed and examined the patient. I have reviewed the medicalrecord and/or the pre-anesthesia evaluation, pertinent labs, and testresults.Significant changes in the patient's condition since the History andPhysical, not otherwise documented in primary service progress notes: NoThis contains updated information obtained within 48 hours ofSurgery/Procedure.SIGNATURE : DELANEY De DiosATE: December 29, 2017TIME: 12:45 PM [facility] BRIEF OP NOTon 12-29-2017 BRIEF OP NOT HNO ID: [id number] thor: Candida (Res) MahmoodService: Orthopaedic SurgeryAuthor Type: ResidentType: Brief Op NoteFiled: 12/29/2017 5:35 PMNote Text:SHOULDERBRIEF OPERATIVE / PROCEDURE NOTELOG ID: [id number]/Procedure Date: 12/29/2017Incision/Procedure Start Time: 3:04 PMIncision Close/Procedure End Time: 5:22 PMSurgeon(s)/Proceduralist(s) and Deck Worker(s):Surgeon(s) and Role: * Sergey Perez - Primary * Watson (Micheal Garcai - Fellow * Candida Pat - Resident - AssistingPhysician Deck Worker: Chato Arrieta (Pa) IIProcedure(s):Procedure(s) (LRB):ARTHROPLASTY TOTAL SHOULDER; W/ GLENOID AND PROXIMAL HUMERAL REPLACEMENT(Left)Anesthesia: GeneralFindings: severe OAEstimated Blood Loss: 250 mlsSpecimens: NoneComplications: NonePre-Op/Pre-Procedure Diagnosis: Glenohumeral arthritis, left [M19.012]Post-Op/Post-Procedu re Diagnosis: Glenohumeral arthritis, left [M19.012]Weight Bearing Status: Non-Weight Bearing, Passive FF 0-120, slingPlan:PACU Imaging: AP L shoulder- Antibiotics: ancef- Pain Management: PO and IV- Diet: CCD- Encouraged IS- PT/OT- Anticipate D/C: POD 1- Dispo: RNF then home POD 1- F/u with Dr. Sergey Perez as scheduled in clinic, with Kenny boyd-Eric Pat MD12/29/2017Orthopaedic Surgery PGY-2Pager: [phone]: Candida Pat MD PATIENT NAME: Alisia CorreaDATE: December 29, 2017 : 5:33 PM PAGER/CONTACT #: [phone] [facility] NURSING PROGon 12-29-2017 NURSING PROG HNO ID: [id number] thor: Ny (Rn) JAMIE Hernandezervice: NursingAuthor Type: Registered NurseType: Nursing Progress NoteFiled: 12/30/2017 6:13 AMNote Text: Nursing Progress NotePatient Name: Alisia CorreaMRN: [id number] Location: [facility] [place]-* Daily Note: Assumed care, pt sitting up in bed with food tray, alert. Ptassessed, see NPR, AANDO x 3, denies chest pain, SOB, N/V. Foam dressing toleft shoulder C/D/I. Qball intact, clamped, dressing C/D/I. Good radialpulses, able to move fingers on left hand, sensation intact. Immobilizeron. Rates pain 0/10. Yet to void, will monitor. Educated on incentivespirometry, discussed plan of care regarding unit protocols, painmanagement and instructed to call for needs and out of bed, pt verbalizesunderstanding.2044 Up to bathroom with 1 assist for void. Per request, pt left in chairwith call light in reach.0 Ordered meds reviewed/taken without difficulty. Assisted back tobed. Call light in reach.0600 Pt c/o increased pain, qball unclamped at this time. Discussed PRNpain med options for increased pain, declines at this time.This note was completed by: NY HERNANDEZ RN [facility] NURSING PROG HNO ID: [id number] thor: Cece (Rn) Jody, RNService: (none)Author Type: Registered NurseType: Nursing Progress NoteFiled: 12/30/2017 10:50 AMNote Text: Nursing Progress NotePatient Name: Alisia CorreaMRN: [id number] [address]-* Daily Note: pt arrived from PACU via bed, A+OX3, oriented pt to room andcall light, left shoulder dsg with immobilizer and ice pack dry andintact, pillow placed behind left elbow, on q ball intact/ clamped, ptdenies pain at this time, vs stable, [place] at bedside ordering dietfor [id number] Reviewed daily medication list with pt, compared med list with MARand ordered appropriate medications that were missing from pt's MARThis note was completed by: Cece Vera RN [facility] OPERATIVE NOon 12-29-2017 OPERATIVE NO HNO ID: [id number] thor: Sergey Perduee: Orthopaedic SurgeryAuthor Type: PhysicianType: Operative ReportFiled: 12/29/2017 5:49 PMNote Text:[facility], [place] [address] [place]OPERATIVE REPORTNAME: Alisia Correa [facility] #: [id number]: 12/29/2017 (3:04pm-5:22pm) AGE: 57SURGEON 1: Sergey Perez M.D.SLEEVE TURNER: 1. Candida Pat M.D. 2. Watson Garcia D.O. 3. Jarek DowningOPERATION: Left total shoulder arthroplasty with posteriorly augmentedglenoid component, biceps tenodesis.ANESTHESIA: General anesthesia with regional interscalene nerve block forpostoperative pain control.PREOPERATIVE DIAGNOSIS: Left shoulder primary glenohumeral osteoarthritis.POSTOPERATIVE DIAGNOSIS: Left shoulder primary glenohumeralosteoarthritis, biceps tendinopathy.OPERATIVE INDICATIONS: The patient is a 57 year old right-hand dominantwhite male who has a history of chronic left shoulder pain from adiagnosis of glenohumeral arthritis. He has developed progressivelyworsening arthritic symptoms, including pain and loss of motion. Due tothe failure of nonoperative management, discussion was had about surgicalinterventions. He was deemed a candidate for left total shoulderarthroplasty. The risks and benefits of the surgery, as well as theexpected postoperative course were discussed with the patient at length.The patient understood the risks and benefits, and wished to proceed withthe operation.OPERATIVE FINDINGS: There were arthritic changes of the glenohumeraljoint on both the humeral and glenoid side, with extensive osteophyteformation along the humeral head. The subscapularis and superior andposterior rotator cuff were found to be intact intraoperatively.Preoperative range of motion under anesthesia showed passive externalrotation at the side of approximately 30 degrees, and passive forwardflexion of approximately 120 degrees. At the end of the case, passiveexternal rotation at the side was approximately 60 degrees, and passiveforward flexion was approximately 160-170 degrees.OPERATIVE PROCEDURE: On the day of surgery, the patient was seen in thepreoperative area. The planned surgical procedure and the correct surgicalsite were again reviewed with the patient and the left upper extremity wasmarked. Prior to being taken back to the operating room, the patient didreceive an interscalene nerve block in his left upper extremity forpostoperative pain control. Preoperative antibiotics were given. Thepatient was then taken back to the operating room and intubated withoutcomplications. The patient was placed in the beach chair position, and theright upper extremity was prepped and draped in the usual sterile fashion.A standard 10-15 cm deltopectoral incision was made along the anterioraspect of the left shoulder. The incision was carried sharply down to thelevel of the deep fascia. The cephalic vein and deltoid were then takenlaterally while the pectoralis major was taken medially, and dissectionwas taken through the deltopectoral interval. The upper 1-1.5 cm of thepectoralis major tendon was released from its attachment site on thehumerus for greater exposure. The subdeltoid and subacromial spaces weredeveloped deeply. The interval between the conjoined and subscapularistendons was next developed up to the coracoacromial ligament, but this wasnot taken. Digital palpation was used to verify the integrity of theaxillary nerve, which was protected throughout the procedure. The conjointtendon was then retracted with the self-retaining retractor medially toexpose the subscapularis tendon deep to this. The anterior humeralcircumflex vessels were clamped and coagulated. The biceps sheath androtator interval were then opened up. The long head of the biceps tendonshowed advanced degenerative changes proximally consistent withtendinopathy. Therefore, the tendon was tenodesed to the upper border ofthe pectoralis major tendon insertion. The degenerative, more proximalremaining portion of the tendon was then excised up to its origin at thesuperior aspect of the glenoid. The bicipital groove was then furthercleaned of soft tissue to better expose the lesser tuberosity andsubscapularis insertion. A lesser tuberosity osteotomy was then performedusing a curved, 1.5-inch osteotome. The subscapularis was then isolatedand freed from the underlying capsule. Following medial retraction of thefree lesser tuberosity osteotomy and subscapularis tendon, the capsule wasthen released, starting proximally at the rotator interval and movingdistally down to the 6 o'clock position along the anatomic neck of thehumeral head. The humeral head was then delivered into the wound withsimultaneous adduction, extension, and external rotation.With the humeral head dislocated and exposed, the humeral osteophytes wereremoved along the anatomic neck. We then marked the anatomic neck with anextra-articular cutting guide with a fixed neck-shaft angle of 135degrees. The humeral head cut was made along this marked site goinganteriorly to posteriorly, making sure to exit posteriorly just above thereflection of the rotator cuff. It was noted that the posterior andsuperior rotator cuff were completely intact. The humeral cut was made inapproximately 20-30 degrees of retroversion, leaving approximately 2-3 mmof bone above the superior and posterior rotator cuff reflection. Weestimated the humeral head size to be a 52 mm. We did not finish thehumerus at this point.We then brought the shoulder into an abducted, extended, and externallyrotated position for exposure of the glenoid. The humerus was retractedposteriorly with a Fukuda retractor. Multiple loose bodies were removedfrom the rotator interval and subcoracoid recess. The anterior capsulewhich had previously been dissected out was then isolated using a Kocherand small and large Kimbrough elevators. This anterior capsule was then exciseddown to the rim of the glenoid. We released the remaining portion of thecapsule to the base of the coracoid superiorly. The remaining bicepsanchor, and the entire anterior, superior, posterior, and inferior labrumwas excised. We did release the remaining inferior capsule, but did notrelease the posterior capsule with the labral excision. Following labralexcision, the glenoid rim was noted to be completely exposed. The patientwas noted to have evidence of advanced glenoid wear, with significantposterior wear. We then placed a glenoid sizer disk which showed theglenoid to be a size 48 mm. Based on the degree of posterior wear andretroversion, the decision was made to proceed with a posterior augmentedglenoid component with 7 mm buildup. Placement of the centering guide pinwas then performed using 48 mm, +7 mm guide. We then brought in the 48 mmcannulated reamer over the centering guide pin and ream the anterior halfof the glenoid just to the start of bleeding bone. We then drilled thecentering hole for the anchor peg glenoid over the guide pin. The guidepin was then removed, and the guide for reaming the 7 mm posterior stepaugment was placed. The posterior half of the glenoid was then reamed tofit the 7 mm posterior step using the guided reamer and the high-speedburr. The peripheral drill guide was placed to drill the three peripheralholes for the anchor peg glenoid. Following drilling of the holes, wenoted that none of the peg holes violated the glenoid vault medially. Marine placed a trial 48 mm, +7 mm STEPTECH glenoid and noted concentricseating of the glenoid trial along the reamed surface with good fit of thesize 48 mm, +7 mm to the glenoid. The trial was then removed, and we pulseirrigated the glenoid and dried the peg holes. We then placed pressurizedcement within the peripheral peg holes. Bone graft from the glenoidreamings was also placed in the grooves of the center peg of the 48 mm, +7mm STEPTECH anchor peg glenoid. The final 48 mm, +7 mm STEPTECH anchor pegglenoid ([employer] STEPTECH APG) was then impacted into the glenoidwithout difficulty. Again, the final glenoid implant showed goodconcentric fit along the entire glenoid surface. All excess cement wasremoved from the periphery. Pressure was left on the glenoid componentuntil the cement had hardened. Once the cement had hardened, weredelivered the proximal humerus into the wound with adduction, extension,and external rotation.The humeral canal was reamed from the cut surface of the humerus. Westarted with a size 6 entry reamer and reamed up to a size 12. We thenplaced a size 12 box osteotome, followed by the size 12 broach. We thenplaced the calcar collar, followed by the calcar reamer to ream down anyuneven surfaces flush with our broach. This showed a good cut surface fora 135-degree implant. Therefore, we then placed a trial 52 x 18 mm head,both centered and eccentric. The trial 52 x 18 mm centered head showed thebest head coverage. We then reduced this trial implant into the glenoid,and this showed excellent soft tissue tensioning with excellentsubscapularis length. The humerus was re-dislocated and the trial implantwas removed. The final humeral implant was, therefore, a 12 stem, [id number] neck, with a 52 x 18 mm centered head ([employer] AP). Weplaced one, #2 Fiberwire suture around the neck of the prosthesis prior toimpaction. Three drill holes were then made along the bicipital groove andtwo #2 Fiberwire sutures were passed through the holes, with the loop ofeach suture left in the humeral canal to place the humeral stem throughthem. The final humeral prosthesis was then impacted into the humerus,taking care to keep each suture loop around the stem, and gave anexcellent press fit. With the final humeral prosthesis in place, theshoulder was reduced, and the wound was copiously irrigated. Thesubscapularis and lesser tuberosity osteotomy were then repaired. The #2Fiberwire suture around the neck of the prosthesis was then broughtthrough the subscapularis tendon as a horizontal mattress and tied down tosecure the osteotomy piece medially. A single rotator interval stitch wasthen passed in xmzfpu-[id number] fashion with a #2 Ticron suture and tieddown to close the lateral rotator interval and set the osteotomy piecesuperiorly. The two #2 Fiberwire sutures coming out of the bicipitalgroove were then sequentially passed in a hhtecz-gv-lpbqw fashion medialto the horizontal mattress and sequential tied down to finish securing theosteotomy to the osteotomy bed as a tension-band construct. This showed anexcellent repair of the lesser tuberosity osteotomy and subscapularis backdown to the original osteotomy bed site.Following this, all retractors were removed, and digital palpation wasagain used to confirm the integrity of the axillary nerve. The wound wasagain copiously irrigated. A total of 5 L of pulse irrigation was usedthroughout the case. The deltopectoral interval was loosely closed withinterrupted, #1 Vicryl stitches. The subcutaneous layer was then closedwith interrupted, 2-0 Vicryl stitches. A running subcuticular 3-0 Prolenesuture was then used to close the skin. Steri-Strips were placed over theincision site, and the wound was sterilely dressed with Adaptic, 6u5kukwn, ABD dressing, and Foam tape. The shoulder was then placed in anabduction sling. The patient was awoken without complications andextubated. He was transferred to the PACU in stable condition.Closing of the incision was performed by Candida Pat M.D., and Gian Wu, with the primary surgeon (Sergey Perez M.D.) readilyavailable. The remainder of the procedure, including all criticalelements, was completed by the primary surgeon (Sergey Perez M.D.) withassistance from Candida Pat M.D., Watson Garcia D.O., and Jarek GoodenESTIMATED BLOOD LOSS: 250 ccDRAINS: noneSPECIMENS: noneCOMPLICATIONS: none apparentEric Wicho Perez M.D. [facility] PT EDon 12-29-2017 PT ED HNO ID: [id number] thor: Crystal (Rn) JAMIE Martinervice: NursingAuthor Type: Registered NurseType: Patient EducationFiled: 12/29/2017 12:00 PMNote Text:PRE OP LEARNING ASSESSMENTPROCEDURE/SURGERY: SURGERY:READINESS TO LEARNCOGNITIVE ABILITY: Alert and orientedMOTIVATION TO LEARN: EagerInterestedFAMILY SUPPORT: High - Very involved in pt carePATIENT LEARNS BEST BY: Multiple MethodsFACTORS AFFECTING LEARNING: NonePHYSICAL LIMITATIONS AFFECTING LEARNING: NoneElectronically Signed By: Crystal Martin RN In Department: [facility] / TO COME IN [facility] XR SHOULDER SPECIFY 1V LTon 12-29-2017 XR SHOULDER SPECIFY 1V LT * * *Final Report* * *DATE OF EXAM: Dec 29 2017 5:43PM EUX [id number] - XR SHOULDER SPECIFY 1V LT / REASON: Post-operative state * * * * Physician Interpretation * * * *RESULT: EXAMINATION: XR SHOULDER SPECIFY 1V LTCLINICAL HISTORY: Postoperative stateTechnique: XR SHOULDER SPECIFY 1V LT -- left shoulder with 1 views on 1 imagesComparison: 07/17/2016RESULT:Patient is status post left shoulder arthroplasty. The orthopedic hardware appears intact and in satisfactory alignment on this single view of the left shoulder. Adjacent soft tissue changes are compatible with recent surgical procedure. No acute fracture is appreciated. Subchondral cyst formation and sclerosis is noted in the left glenoid. Degenerative changes are also evident at the left acromioclavicular joint.IMPRESSION:Status post left shoulder arthroplasty.Transcribed Using Voice RecognitionTranscribe Date/Time: Dec 29 2017 5:47PDictated by: AMY LOYD MDThis examination was interpreted and the report reviewed and electronically signed by: AMY LOYD MD on Dec 29 2017 5:49PM [id number] Normal [facility] NURSING PROGon 12-08-2017 NURSING PROG HNO ID: [id number] thor: Amaya (Rn) Paula, RNService: (none)Author Type: Registered NurseType: Nursing Progress NoteFiled: 12/09/2017 8:48 AMNote Text:PACC Nurse Progress NoteHistory AND Physical:PACC Visit Date: 12/07/17Labs Within Last 6 Months:CBC: Date 12/07/17BMP/CMP: Date 12/07/17TYPE AND SCREEN: Date 12/07/17Imaging Within Last 12 Months:CT ScanDate of test: 11/06/17Cardiac Testing:EKG in last 12 Months: Yes: Date: 11/06/17, Comment: (NSR, with left axisdeviation)Risk Assessment:N/AAnesthesia Review:N/ANarrative:Per HPI: DM-oral medication; Current smoker; S/P gastric [id number] Considerations:N/AChart Check:Yoly Mitchell [facility] 2017 9:11 AM Normal [facility] Type and SCR (30D)on 018 ABO/RH(D) Negative Normal [facility] Antibody Screen Negative Normal [facility] HOSPon 11-13-2017 HOSP Patient:Eddi Correa LMRN: Height:5' 11 (1.803 m)Weight:240 lb (108.863 kg)Outpatient Medications as of 12/29/17:oxyCODONE-acetaminoph en (PERCOCET) 5-325 mg tabletdocusate sodium (COLACE) 100 mg capsuleondansetron (ZOFRAN, HYDROCHLORIDE,) 4 mg tabletdiclofenac, EC, (VOLTAREN) 25 mg EC tabletmupirocin (BACTROBAN) 2 % ointmentmetFORMIN (GLUCOPHAGE) 1,000 mg tabletpregabalin (LYRICA) 150 mg capsulelinaclotide (LINZESS) 145 mcg capprimidone (MYSOLINE) 50 mg tabletatorvastatin (LIPITOR) 10 mg tabletezetimibe (ZETIA) 10 mg tablettraMADol 200 mg 24 hr tabletacetaminophen (TYLENOL) 325 mg tabletaspirin, enteric coated (ECOTRIN LOW STRENGTH) 81 mg EC tabletDexlansoprazole (DEXILANT) 60 mg CpDMmiSOPROStol (CYTOTEC) 200 mcg tableturea (CARMOL) 40 % lotnclotrimazole-betamethason e (LOTRISONE) creamsildenafil (VIAGRA) 100 mg tablettopiramate (TOPAMAX) 100 mg tablettiZANidine (ZANAFLEX) 4 mg tabletranitidine (ZANTAC) 150 mg tablethydrOXYzine HCl (ATARAX) 50 mg tabletAug Betamethasone Dipropionate (DIPROLENE) 0.05 % ointmentmagnesium hydroxide (MILK OF MAGNESIA) 400 mg/5 mL suspensionbudesonide-formoter ol (SYMBICORT) 160-4.5 mcg/actuation inhalerDULoxetine (CYMBALTA) 60 mg capsulesucralfate (CARAFATE) 1 gram tabletMULTIVIT-MIN/FA/LYCOPEN /LUTEIN (CENTRUM SILVER ULTRA MEN'S ORAL)amitriptyline 25 mg ORAL tablettamsulosin (FLOMAX) 0.4 mg ORAL Vq48Cfezuothg Sulfate 1.25 mg/3 mL INHALATION nebulizer solutionacarbose(PRECOSE 25 MG TAB)potassium citrate (UROCIT-K 10) 10 mEq ORAL TbSRAdmission/Clinic Administered Medications as of 12/29/17:lidocaine 10 mg/mL (1 %) 1-2 mg injection (XYLOCAINE)lactated ringers infusionceFAZolin iv piggyback 2 g in D5W (iso-osmotic) 100 mL (ANCEF)ropivacaine 0.2 % 1,000 mg in NaCl infusion (ON-Q) (NAROPIN)Problem List:SPRAIN OF NECK () [S13.9XXA]Spinal stenosis in cervical region [M48.02]Brachial neuritis or radiculitis [M54.12]Displacement of thoracic intervertebral disc without myelopathy [M51.24]Carpal tunnel syndrome [G56.00]SPRAIN OF NECK () [S13.9XXA]Displacement of cervical intervertebral disc without myelopathy [M50.20]Brachial neuritis or radiculitis NOS [M54.12]Spinal stenosis, lumbar region, without neurogenic claudication [M48.061]Rotator cuff syndrome of shoulder and allied disorders [M75.100]Psychosexual dysfunction, unspecified [F52.9]Urgency of urination [R39.15]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]Impotence of organic origin [N52.9]Frequency of urination [R35.0]Slow urinary stream [R39.198]Microstomia [Q18.5]Hypertrophy of prostate with urinary obstruction and other lower urinary tractsymptoms (LUTS) [N40.1]Postlaminectomy syndrome of lumbar region [M96.1]Glenohumeral arthritis [M19.019]Primary osteoarthritis of left knee [M17.12]Type 2 diabetes mellitus without complication, without long-term current use ofinsulin (HCC) [E11.9]Chronic pain syndrome [G89.4]COPD with chronic bronchitis (HCC) [J44.9]Arthritis of knee [M17.10]Primary osteoarthritis of right knee [M17.11]OA (osteoarthritis) of knee [M17.10]Glenohumeral arthritis, left [M19.012]Essential tremor [G25.0]Asthma [J45.909]Diabetes mellitus (HCC) [E11.9]Essential hypertension [I10]Hyperlipidemia [E78.5]Ulcerative lesion [CKG8338]Allergies:Avelox [Moxifloxacin Hcl]Celebrex [Celecoxib]Erythromycin BaseKlonopin [Clonazepam]Levaquin [Levofloxacin]Date Verified: 12/29/17Lab ValuesLab Value Units Date High LowPOTA* 4.6 mmol/L 12/07/2017 5.1 3.7HEMA* 43.5 % 12/07/2017 51.0 39.0No progress notes entered within the past 30 days Normal [facility] Basic Metabolic Panlon 07-02 Anion gap 11 mmol/L Normal 10-20 [facility] Comment on above: Performed By: #### C MP, IRON, CBCDIF ####[place] [id number]#### FERR, HBA1C ####[place] [phone] Calcium 8.0 mg/dL Low 8.5-10.5 [facility] Comment on above: Performed By: #### C MP, IRON, CBCDIF ####[place] [id number]#### FERR, HBA1C ####[place] [address] Chloride 105 mmol/L Normal 98-110 [facility] Comment on above: Performed By: #### C MP, IRON, CBCDIF ####[place] [id number]#### FERR, HBA1C ####[place] [address] CO2 23 mmol/L Normal 23-32 [facility] Comment on above: Performed By: #### C MP, IRON, CBCDIF ####[place] [id number]#### FERR, HBA1C ####[place] [address] Creatinine 1.00 mg/dL Normal 0.70-1.40 [facility] Comment on above: Performed By: #### C MP, IRON, CBCDIF ####[address] #### FERR, HBA1C ####[address] [place] [phone] eGFR (non-black) mL/min/{1.73_m2} Normal >60 [facility] Comment on above: Performed By: #### C MP, IRON, CBCDIF ####[place] [id number]#### FERR, HBA1C ####[place] [address] [facility] [phone] Glucose mass conc 112 mg/dL High 65-100 [facility] Comment on above: Performed By: #### C MP, IRON, CBCDIF ####[place] [id number]#### FERR, HBA1C ####[place] [phone] Potassium molar conc 3.7 mmol/L Normal 3.5-5.0 [facility] Comment on above: Performed By: #### C MP, IRON, CBCDIF ####[place]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 StreamMicrostomiaHypertrophy of Prostate With Urinary Obstruction and Other Lower UrinaryTract Symptoms (Luts)Postlaminectomy Syndrome of Lumbar RegionGlenohumeral ArthritisPrimary Osteoarthritis of Left KneeType 2 Diabetes Mellitus Without Complication, Without Long-Term CurrentUse of Insulin (Hcc)Chronic Pain SyndromeCopd With Chronic Bronchitis (Hcc)Arthritis of KneePrimary Osteoarthritis of Right KneeOa (Osteoarthritis) of KneePOST OPERATIVE COMPLICATIONS:Complicated by: uneventful/noneFor Documentation:This procedure is considered Major Orthopedic Surgery and is exempt fromthe new law regarding narcotic prescription quantity limitations.SIGNATURE: Rafy Ugarte MD PATIENT NAME: Alisia Correa Sr.DATE: July 02, 2017 : 8:40 AM PAGER/CONTACT #: [phone] discuss medical issues with medical co-management physicianOrthopedic issue please page me first, [phone] 6pm and on weekends please contact [facility] Ortho On-Call [phone] [facility] THERAPY NTon 07-02-2017 THERAPY NT HNO ID: [id number] thor: Nellie (Pt) Jerseyervice: Physical TherapyAuthor Type: Physical TherapistType: Therapy (PT/OT/Speech/Resp)Filed: 07/02/2017 3:04 PMNote Text:PHYSICAL THERAPY MISSED VISITSERVICE DATE: 07/02/2017SERVICE TIME: 1330 to 1335ROOM: [id number] Treatment. Patient not seen due to Declined. Preparing to go toOT for car transfer. Denied questions/concerns from PT standpoint. Clearedafter morning session for D/C home today.SIGNATURE: Nellie David PT PATIENT NAME: Alisia Correa .DATE: July 02, 2017 : 3:01 PM PAGER/CONTACT #: [phone] [facility] THERAPY NT HNO ID: [id number] thor: Rebecca (Ot) Emelina OTService: Occupational TherapyAuthor Type: Occupational TherapistType: Therapy (PT/OT/Speech/Resp)Filed: 07/02/2017 2:43 PMNote Text:Occupational Therapy TreatmentSERVICE DATE: 07/02/2017SERVICE TIME: 1413 to 1437ROOM: [id number] Discharge Disposition: Home OTRecommended Discharge Disposition Comments: Recommending home health PT/OTat discharge to help patient increase independence with self-care tasksand IADL performance.Anticipated Discharge Needs: Supervision at Home;EquipmentPhysical Assist at Home for: StairsSupervision at Home due to: Other: See Comment (Patient is at a higherrisk for falls.)Recommended Discharge Equipment: No equipment needs anticipatedOT Recommendations to Nursing: Assist of 1 person to bathroom forADL?s;Encourage patient participation in ADL?s;OOB for mealsOT 6 Clicks Score: 23Precautions/Activity Restrictions: Total Knee Replacement;Weight BearingRestrictionsPrecaution /Activity Restriction Comments: ambulate on unit with walker andstaff assist as toleratedExtremity With Weight Bearing Restricted: Right Lower ExtremityRight Lower Extremity Weight Bearing Status: WBATASSESSMENT:Patient is safe to discharge from acute care setting via car from OTperspective.Patient is s/p elective RTKR and demonstrates impaired self care andfunctional mobility.Patient requires skilled OT intervention to maximize independence/safetywith ADLs, IADLs, functional mobility, and to educate on precautions andadaptive techniques/equipment .Tolerated Full SessionOccupational Therapy Problem List: Edema;Pain;Safety Deficits;ImpairedSelf Care;Decreased Activity Tolerance;Decreased Range Of Motion;DecreasedStrength;Func tional Mobility Impairment;Balance ImpairedPatient /Caregiver Goals: Walk;Go HomeGoals for Plan of Care:Lower Body Bathing with: Modified IndependentLower Body Dressing with: Modified IndependentToilet Hygiene with: Modified IndependentChair Transfer with: Modified IndependentToilet Transfer with: Modified IndependentShower Transfer with: SupervisionTub Transfer with: SupervisionTransfer: SBA with car transfer using compensatory techniqueProgress Toward Goals: Progressing as expectedRehab Potential: ExcellentPLAN:Treatment Frequency (times per week): 5 Current admissionTreatment Interventions: Education;Self Care / Home Management;JointMobility;Stre ngthening;Functional Mobility Training;BalanceTraining;Neur omuscular Re-education;Edema Management;Pain ManagementPlan of Care developed with: PatientTREATMENT INTERVENTIONS:Therapy Diagnosis: Reduced mobility-other;Decreased activities of dailyliving (ADL);Muscle Weakness (generalized);Difficultywalki ng-musculoskeletalInterventio ns Provided: Therapeutic Activity (87641)Therapeutic Activity (49765) Treatment Minutes: 242 unitsSkilled Intervention(s): Instruction in sit to and from stand techniquewith proper hand placement and body positioning at edge of bed/chair.Instruction, demonstration to pt on safe transfer technique to car. Ptwith repeat demonstration using car simulator. Pt at supervised level.Instruction on walker safety in the home, use of bag or basket to carryitems. Education on keeping pathways clear, wearing proper footwear.Pt donned both shoes using long handled shoe horn with minimalinstruction. Indep with tying shoes.Total Timed Code Treatment Minutes: 24Total Treatment Time (minutes): 24FUNCTIONAL G CODE:OT 6 Clicks Score: 23 (07/02/17 9453)Self Care Current Status (G8987): CI (07/02/17 1413)Self Care Goal Status (G8988): (07/02/17 1413)Based on clinical assessment and the score on the 6 Clicks FunctionalAssessment Tool, the G code and corresponding severity modifiers aredocumented above.SUBJECTIVE:Current Hospital Course: Chart reviewed and no significant medical updatesrelevant to therapy were notedPatient Report: This is hurting a lot more than my other knee. Home EnvironmentPatient Lives With: Significant OtherAssistance Available: PRNEntry To Home: Stairs;With RailNumber Of Stairs Into Home: 2Number Of Stairs To Bed/Bath: 0 (Has bedroom/bathroom on first floor)Tub/Shower Type: Walk-in shower with shower seat, grab bars, HHSHLaundry: Washer/dryer are on first floorEquipment Owned: Cane;Commode-Raised;Grab Bars-Shower;Hand HeldShower;Long Handled Shoe Horn;Long Handled Sponge;WheeledWalker;Call Center Specialist; Sock Aide;Shower ChairPrior Functional Level: Within Functional LimitsOBJECTIVE:Responsivenes s: Alert;AwakeFollows Commands: 3-step CommandsMini Cog Score: 5 (07/02/17 1036)CURRENT FUNCTIONAL STATUS:Current Activities of Daily Living Assist LevelFeeding IndependentGrooming Modified IndependentBathing Upper Body Modified IndependentBathing Lower Body Stand By AssistanceDressing Upper Body Modified IndependentDressing Lower Body Stand By AssistanceToileting Stand By AssistanceInstrumental Activities of Daily Living Assist LevelMeal/Beverage Prep Minimal AssistanceLight Cleaning Maximal AssistanceLaundry Moderate AssistanceMedication Management with Strategies Modified IndependentFunctional Mobility Assist LevelRolling Stand By AssistanceSupine to Sit Stand By AssistanceSit to Supine Stand By AssistanceScooting Stand By AssistanceSit to Stand Stand By AssistanceStand to Sit Stand By AssistanceBed to Chair Stand By Assistance Stand PivotWheeled WalkerToilet/Commode Stand By AssistanceFunctional Mobility Stand By Assistance Wheeled WalkerCar Transfer: SupervisionBalance: Static Sitting;Dynamic Sitting;Static Standing;Dynamic StandingStatic Sitting Balance: Modified IndependentDynamic Sitting Balance: Modified IndependentStatic Standing Balance: Stand By AssistanceDynamic Standing Balance: Stand By AssistanceActivity Tolerance: Standing ActivityStanding Activity: Clothing managementStanding Activity Tolerance (in minutes): 2Please see discipline specific clinical documentation flowsheet forcomplete details for this therapy evaluation/treatment.SIGNATUR E: Rebecca Tarango OTR/L PATIENT NAME: Alisia Correa Sr.DATE: July 02, 2017 : 2:40 PM PAGER: [phone] [facility] THERAPY NT HNO ID: [id number] thor: Watson (Ot/L) RAMSES Connellyervice: Occupational TherapyAuthoarin Type: Occupational TherapistType: Therapy (PT/OT/Speech/Resp)Filed: 07/02/2017 11:48 AMNote Text:Occupational Therapy EvaluationSERVICE DATE: 07/02/2017SERVICE TIME: 1036 to 1118ROOM: [id number] Discharge Disposition: Home OTRecommended Discharge Disposition Comments: Recommending home health PT/OTat discharge to help patient increase independence with self-care tasksand IADL performance.Anticipated Discharge Needs: Supervision at Home;EquipmentPhysical Assist at Home for: StairsSupervision at Home due to: Other: See Comment (Patient is at a higherrisk for falls.)Recommended Discharge Equipment: No equipment needs anticipatedOT Recommendations to Nursing: Assist of 1 person to bathroom forADL?s;Encourage patient participation in ADL?s;OOB for mealsOT 6 Clicks Score: 21Precautions/Activity Restrictions: Total Knee Replacement;Weight BearingRestrictionsPrecaution /Activity Restriction Comments: ambulate on unit with walker andstaff assist as toleratedExtremity With Weight Bearing Restricted: Right Lower ExtremityRight Lower Extremity Weight Bearing Status: WBATASSESSMENT:Patient presents with impaired Range of Motion, Strength/Tone, Edema,Pain, Balance, Functional Mobility and Activity Tolerance and ADLs,impacting the ability to function without assistance from caregivers.Patient requires SBA to modified independence with all ADLs includingMinimal: Tactile, Verbal, Visual cues for safety. Patient presents withtremor in R hand that patient states has been present for 8 months, andpatient is seeing a neurologist for this issue. Patient's greatestbarrier to improved function is increased stiffness and pain in R knee.Patient requires skilled occupational therapy to address currentfunctional limitations, identify coping skills to progress through currentimpairments as well as to provide training on safe performance of cartransfer prior to discharge. Recommending referral to home health PT/OTservices at discharge to facilitate safe discharge to home and community.Tolerated Full SessionOccupational Therapy Problem List: Edema;Pain;Safety Deficits;ImpairedSelf Care;Decreased Activity Tolerance;Decreased Range Of Motion;DecreasedStrength;Func tional Mobility Impairment;Balance ImpairedPatient /Caregiver Goals: Walk;Go HomeGoals for Plan of Care:Lower Body Bathing with: Modified IndependentLower Body Dressing with: Modified IndependentToilet Hygiene with: Modified IndependentChair Transfer with: Modified IndependentToilet Transfer with: Modified IndependentShower Transfer with: SupervisionTub Transfer with: SupervisionTransfer: SBA with car transfer using compensatory techniqueProgress Toward Goals: Progressing as expectedRehab Potential: ExcellentPLAN:Treatment Frequency (times per week): 5 Current admissionTreatment Interventions: Education;Self Care / Home Management;JointMobility;Stre ngthening;Functional Mobility Training;BalanceTraining;Neur omuscular Re-education;Edema Management;Pain ManagementPlan of Care developed with: PatientTREATMENT INTERVENTIONS:Therapy Diagnosis: Reduced mobility-other;Decreased activities of dailyliving (ADL);Muscle Weakness (generalized);Difficultywalki ng-musculoskeletalInterventio ns Provided: Evaluation;Therapeutic Activity (14756);Self CareHome Management (38863)$ Evaluation-Low (09960) Billed Units: 1 unitTherapeutic Activity (64259) Treatment Minutes: 101 unitSkilled Intervention(s): Instructed patient in log roll techniqueInstructed patient in supine to sit pushing with upper extremities to situp with patient requiring SBA and extra time to move R LE over in bed.Instructed patient in sit to supine using safe, effective technique withSBA but requires more than the normal amount of time to perform bedmobility tasks.Instruction in sit to stand technique with proper hand placement and bodypositioning at edge of bed/chair with SBA but requires more than thenormal amount of time to perform transfers due to stiffness and pain in Rknee.Instruction in stand to sit technique with lower extremities touchingchair/bed and reaching back for surface with SBA to ensure patient able tocontrol descent when sitting down.Provided SBA with stand pivot transfers using wheeled walker between bedand chair.Self Snf Management (89789) Treatment Minutes: 171 unitSkilled Intervention(s): Instructed in post-op instructions during ADLs asrelative to TKR precautions including review of information in jointreplacement booklet regarding ADLs.Provided cuing for hand/oral hygiene with modified independence.Provided instruction, cuing and facilitation for upper body dressing withmodified independence while seated at EOB.Provided instruction, cuing and facilitation for lower body dressing withSBA and extra time to complete task due to stiffness. Patient used sockaid with supervision to don sock on R foot.Provided instruction, cuing and facilitation for bathing with spongebathing while seated at EOB with SBA for LB bathing and modifiedindependent with UB bathing.Total Timed Code Treatment Minutes: 27Total Treatment Time (minutes): 42FUNCTIONAL G CODE:OT 6 Clicks Score: 21 (07/02/17 1036)Self Care Current Status (G8987): CJ (07/02/17 1036)Self Care Goal Status (G8988): CI (07/02/17 1036)Based on clinical assessment and the score on the 6 Clicks FunctionalAssessment Tool, the G code and corresponding severity modifiers aredocumented above.SUBJECTIVE:Current Hospital Course: Chart reviewed; Patient is a 56 year old male whois s/p R TKR. PMHx significant for Durbin's esophagus; rib fracture;asthma; sleep apnea; multiple surgeries; gastric bypass; OA; L TKR112/08/2012; L TKR revision 04/27/17.Patient Report: I had a knee revision in April so I am pretty prepared. Home EnvironmentPatient Lives With: Significant OtherAssistance Available: PRNEntry To Home: Stairs;With RailNumber Of Stairs Into Home: 2Number Of Stairs To Bed/Bath: 0 (Has bedroom/bathroom on first floor)Tub/Shower Type: Walk-in shower with shower seat, grab bars, HHSHLaundry: Washer/dryer are on first floorEquipment Owned: Cane;Commode-Raised;Grab Bars-Shower;Hand HeldShower;Long Handled Shoe Horn;Long Handled Sponge;WheeledWalker;Call Center Specialist; Sock Aide;Shower ChairPrior Functional Level: Within Functional LimitsOBJECTIVE:Responsivenes s: Alert;AwakeFollows Commands: 3-step CommandsMini Cog Score: 5 (07/02/17 1036)CURRENT FUNCTIONAL STATUS:Current Activities of Daily Living Assist LevelFeeding IndependentGrooming Modified IndependentBathing Upper Body Modified IndependentBathing Lower Body Stand By AssistanceDressing Upper Body Modified IndependentDressing Lower Body Stand By AssistanceToileting Stand By AssistanceInstrumental Activities of Daily Living Assist LevelMeal/Beverage Prep Minimal AssistanceLight Cleaning Maximal AssistanceLaundry Moderate AssistanceMedication Management with Strategies Modified IndependentFunctional Mobility Assist LevelRolling Stand By AssistanceSupine to Sit Stand By AssistanceSit to Supine Stand By AssistanceScooting Stand By AssistanceSit to Stand Stand By AssistanceStand to Sit Stand By AssistanceBed to Chair Stand By Assistance Stand PivotWheeled WalkerToilet/Commode Stand By AssistanceFunctional Mobility Stand By Assistance Wheeled WalkerBalance: Static Sitting;Dynamic Sitting;Static Standing;Dynamic StandingStatic Sitting Balance: Modified IndependentDynamic Sitting Balance: Modified IndependentStatic Standing Balance: Stand By AssistanceDynamic Standing Balance: Stand By AssistanceActivity Tolerance: Standing ActivityStanding Activity: Clothing managementStanding Activity Tolerance (in minutes): 2Please see discipline specific clinical documentation flowsheet forcomplete details for this therapy evaluation/treatment.SIGNATUR E: Watson Connelly OT/Kenny PATIENT NAME: Alisia Correa Sr.DATE: July 02, 2017 : 11:33 AM PAGER: [phone] [facility] THERAPY NT HNO ID: [id number] thor: Nellie (Pt) GuddyService: Physical TherapyAuthor Type: Physical TherapistType: Therapy (PT/OT/Speech/Resp)Filed: 07/02/2017 11:05 AMNote Text:Physical Therapy TreatmentSERVICE DATE: 07/02/2017SERVICE TIME: 917 to OOM: [id number] Discharge Disposition: Home PTAnticipated Discharge Needs: Physical Assist at Home;Supervision at HomePhysical Assist at Home for: StairsSupervision at Home due to: (recent surgery)Recommended Discharge Equipment: No equipment needs anticipatedPT Recommendations to Nursing: Ambulate with device;To bathroom;Inhalls;With assist of 1 person;OOB for mealsAmbulation Device: Wheeled WalkerPT 6 Clicks Score: 20Precautions/Activity Restrictions: Total Knee Replacement;Weight BearingRestrictionsPrecaution /Activity Restriction Comments: ambulate on unit with walker andstaff assist as toleratedExtremity With Weight Bearing Restricted: Right Lower ExtremityRight Lower Extremity Weight Bearing Status: WBATASSESSMENT :Pt c/o 05/28 pain but mobilizing well and able to participatethroughout session and stair training. Pt cleared from PT standpoint Diaz/C home today with assist and home PT.Tolerated Full SessionPhysical Therapy Problem List: Pain;Safety Deficits;Impaired SelfCare;Decreased Activity Tolerance;Decreased Range Of Motion;DecreasedStrength;Func tional Mobility Impairment;Balance ImpairedPatient /Caregiver Goals: Walk;Go HomeGoals for Plan of Care:Able to perform HEP with: IndependentRolling with: Modified IndependentTransfer supine to/from sit with: Modified IndependentTransfer sit to/from stand with: SupervisionAmbulate with: SupervisionDistance: 150 feetDevice: Wheeled WalkerAmbulate up and down curb step with: Stand By AssistanceDevice: WalkerAmbulate up and down steps with: Stand By AssistanceNumber of steps: 6Device: Cane;RailROM: 0-90*Progress Toward Goals: Progressing as expectedRehab Potential: GoodPLAN:Treatment Frequency (times per week): 7 Current admissionTreatment Interventions: Education;Self Care / Home Management;EnergyConservation Training;Joint Mobility;Strengthening;Functi onal MobilityTraining;Balance TrainingPlan of Care developed with: PatientTREATMENT INTERVENTIONS:Therapy Diagnosis: Reduced mobility-otherInterventions Provided: Therapeutic Exercise (84113);Therapeutic Activity(26077);Gait Training (08951)Therapeutic Exercise (04592) Treatment Minutes: 201 unitSkilled Intervention(s): Instruction in therapeutic exercise seated andsupine TKR exercisesVerbal and tactile cuing provided .Education in HEp and TKR bookletTherapeutic Activity (92177) Treatment Minutes: 101 unitSkilled Intervention(s): Instructed patient in sit to supine using safe,effective techniqueEducation with POC, precautions, home management and set up, nonpharm paincontrol techniques, nonpharm pain control techniques, conservation ofenergy techniquesGait Training (16107) Treatment Minutes: 242 unitsSkilled Intervention(s): Instruction in sit to stand technique with properhand placement and body positioning at edge of bed/chair, Instruction instand to sit technique with LE's touching chair/bed and reaching back forsurface, Instruction in sequencing, gait pattern, Instruction incorrection of gait deviations, Instruction in WB precautions, Instructionin stair negotiation, Instruction in use of equipment, cues for sequenceand pattern and posture, balance, safety, equipmentTotal Timed Code Treatment Minutes: 54Total Treatment Time (minutes): 54SUBJECTIVE:Current Hospital Course: Chart reviewed and no significant medical updatesrelevant to therapy were notedPatient Report: I know what excruciating pain is Pt recalls incidentwhen he was 18 years old and was crushed beneath an iron plate at workrequiring prolonged ICU stay and intense therapy after.Home EnvironmentPatient Lives With: Significant OtherAssistance Available: PRNEntry To Home: StairsNumber Of Stairs Into Home: 2 (platform)Number Of Stairs To Bed/Bath: 0Equipment Owned: Cane;Wheeled WalkerPrior Functional Level: Within Functional Limits (ambulated with cane vswalker)OBJECTIVE:CURRENT FUNCTIONAL STATUS:Current Functional Mobility Assist Level Additional InformationRollingSupine to Sit SupervisionSit to Supine Stand By Assistance (with use of sheet as leg certified medical coder after 2trials)Scooting Modified IndependentSit to Stand Stand By Assistance (from EOB)Stand to Sit SupervisionBed to Chair SupervisionToilet/Commode SupervisionGait Supervision Gait Device: Wheeled Walker Gait Distance (feet): 125 feet x 1StairsCurb Step Contact Guard Assistance Walker (x 2 trials)Car TransferGait Deviations Right Lower Extremity: Weight bearing decreased;Stancetime decreased;Heel strike during initial stance decreased;Push-off duringterminal stance decreased;Step length decreasedGeneral Gait Deviations: Adriana decreased;Shuffling Gait;Flexed trunkposture (step to)Please see discipline specific clinical documentation flowsheet forcomplete details for this therapy evaluation/treatment.CHALO E: Nellie David PT PATIENT NAME: Alisia Correa .DATE: July 02, 2017 : 10:58 AM PAGER/CONTACT #: [phone] [facility] ANES Brian 07-01-2017 ANES POST HNO ID: [id number] thor: Antonio Stockton IIService: AnesthesiologyAuthor Type: AnesthesiologistType: Anesthesia PostOpFiled: 07/01/2017 11:34 AMNote Text:POST ANESTHESIA EVALUATION NOTESERVICE DATE: 07/01/2017SERVICE TIME: 1134DOB: 1960Vitals: 07/01/1709Temp: (!) 35.9 ?C (96.6 ?F) 37 ?C (98.6 ?F) 36.8 ?C (98.2 ?F) 07/01/1710BP: 123/67 138/76 116/79 120/67 07/01/1710Pulse: 73 74 79 80 07/01/1710Resp: 16 16 16 16 07/01/1710SpO2: 92% 97% 99% 98%Validated Vital Signs: YesPOST ANES STATUS: No apparent anesthetic complications. The patient isappropriately hydrated with stable respiratory and cardiovascular status.Patient has safe and adequate airway control. The patient has appropriatepain relief and no significant post operative nausea or vomiting. Thepatient has achieved baseline mental status.Further assessment by Anesthesia Service: NoneOther Remarks:SIGNATURE: Antonio Stockton II, DO PATIENT NAME: Alisia Correa .DATE: July 01, 2017 : 11:34 AM PAGER/CONTACT #: [phone] [facility] ANES PREOPon 07-01-2017 ANES PREOP HNO ID: [id number] thor: Antonio Castle: AnesthesiologyAuthor Type: AnesthesiologistType: Anesthesia PreOpFiled: 07/01/2017 7:13 AMNote Text: ANESTHESIOLOGY DAY OF SURGERY NOTESERVICE DATE: 07/01/2017SERVICE TIME: 0711DOB: 1960Procedure(s) (LRB):ARTHROPLASTY REPLACE JOINT TOTAL KNEE (Right)Surgeon(s):Swati FioreEstimated body mass index is 34.87 kg/(m2) as calculated from thefollowing: Height as of 06/17/17: 180.3 cm (5' 11 ). Weight as of 06/17/17: 113.4 kg (250 lb).Most recent hematocrit and potassium results:Hematocrit 40.0 06/17/2017Potassium 4.4 06/17/2017ANES DOS/PREOP NOTE:Vitals: 07/01/684463AS: 115/74Pulse: 67Resp: 16Temp: (!) 35.9 ?C (96.6 ?F)TempSrc: Temporal ArterySpO2: 99%ACTIVE PROBLEM LISTSPRAIN OF NECK ()Spinal Stenosis in Cervical RegionBrachial Neuritis Or RadiculitisDisplacement of Thoracic Intervertebral Disc Without MyelopathyCarpal Tunnel SyndromeSPRAIN OF NECK ()Displacement of Cervical Intervertebral Disc Without MyelopathyBrachial Neuritis Or Radiculitis NOSSpinal Stenosis, Lumbar Region, Without Neurogenic ClaudicationRotator Cuff Syndrome of Shoulder and Allied DisordersPsychosexual Dysfunction, UnspecifiedUrgency of UrinationOther and Unspecified Malignant Neoplasm of Skin of LipImpotence of Organic OriginFrequency of UrinationSlow Urinary StreamMicrostomiaHypertrophy of Prostate With Urinary Obstruction and Other Lower UrinaryTract Symptoms (Luts)Postlaminectomy Syndrome of Lumbar RegionGlenohumeral ArthritisPrimary Osteoarthritis of Left KneeType 2 Diabetes Mellitus Without Complication, Without Long-Term CurrentUse of Insulin (Hcc)Chronic Pain SyndromeCopd With Chronic Bronchitis (Hcc)Arthritis of KneePrimary Osteoarthritis of Right KneeOa (Osteoarthritis) of KneePAST MEDICAL HISTORYDiagnosis Date- Durbin's esophagus- Closed fracture of rib(s), unspecified Rib fracture- Esophageal reflux BARRETS ESOPHAGUS- Hypertrophy of prostate with urinary obstruction and other lower urinarytract symptoms (LUTS) Hypertrophy of the prostate with obstruction- Impotence, organic- Unspecified asthma(493.90)- Unspecified sleep apnea Last us 2003, pt was 380 lbs at that time- Urinary calculus, unspecified Renal stonesPAST SURGICAL HISTORYProcedure Laterality Date- COLONOSCOP W/ OR W/O [facility] SPEC Colonoscopy- EGD W/O OR W/BRUSH/WASH 2015 EGD- MAL LESION FACE,EAR,EYEL 0.6-1CM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 daily.potassium citrate (UROCIT-K 10) 10 mEq ORAL TbSR Take one(1) tablet three timesdaily.Medication Comments documented by Carla Edwards CARBON DIOXIDE OPERATOR on 04/15/2017 [id number].Pt reports ALL Medications are accurate 04/15/17CURRENT ALLERGIES:ALLERGIESAllergen Reactions- Avelox [Moxifloxaci* Rash, Hives, Itching, Shortness of Breath- Celebrex [Celecoxib] Rash, Hives, GI Upset- Erythromycin Base Hives, Shortness of Breath- Klonopin [Clonazepa* Itching- Levaquin [Levofloxa* HivesREVIEW OF SYSTEMS:PAIN ASSESSMENT: PainPain Score: 5/10Pain Location: Knee-RightDescription: Dull;AchingDuration Amount of Time: 1Duration Units: YearsFrequency: ContinuousIntervention: ColdGeneral: No weight loss, malaise or fevers.Neuro: No history of TIA's, stroke, BREAKER MACHINE TENDER tumor, impaired sensorium, hemiplegia,paraplegia or quadraplegia. No neurological symptoms or problems., Postive forNo history of TIA's, stroke, BREAKER MACHINE TENDER tumor, impaired sensorium, hemiplegia,paraplegia or quadraplegia. No neurological symptoms or problems.Respiratory: Positive for Asthma, Mild COPD: daily inhalers + prn. Smoker. YOLA(doesn not use cpap)Cardiovascular: No history of HTN requiring medication, no history of angina,CHF, MO, cardiac surgery or stents. Denies rest pain, gangrene orrevascularization/amputatio n for PVD. No history of cardiovascular symptoms orproblems.GI: Positive for GERD, Durbin's esoph. PUD.: urinary frequency throughout the night. BPH on flomax.Endocrine: Diabetes Mellitus on oral agent, A1c, per patient is good Hematology: No history of bleeding or clotting disorder. Pt is not takinganti-coagulation or platelet medications. No history of hematological symptomsor problems.Oncology: squamous cell, lip and right neck lymph nodes. No chemo or XRT.Psych: No history of psychiatric symptoms or problems.Musculoskeletal: Joint pain right knee panSkin: Negative for lesions, rash and itching.OBJECTIVEPHYSICAL EXAM:VITALS:BP 116/74 Pulse 62 Temp (Src) 97.9 (Temporal Artery) Resp 16 Ht 5' 11 (1.80m) Wt 250 lb (113.4kg) SpO2 98% BMI 34.88 kg/(m2).General: Alert and oriented, ObeseSkin: Normal color, no rash, no lesions.HEENT: EOM, pupils equal, round and reactive.Cardiovascular: Normal S1 AND S2, no rubs, murmurs or gallops. No JVD. Pulseregular.Lungs: Normal breath sounds, no wheezes or crackles.Abdomen: Soft, non-tender, no rigidity.Extremities: No deformity, + right knee pain. +tremors.Neurological: Normal cognition and motor skills.Pulses: Posterior tibial and radial pulses normal +2.Diagnostic tests reviewed for today's visit: Lab Value Units Date High LowHB 11.7 g/dL 04/28/2017 17.0 13.0HCT 35.8 % 04/28/2017 51.0 39.0 WBC 6.82 k/uL 04/28/2017 11.00 3.70PLT 133 k/uL 04/28/2017 400 150 NA 137 mmol/L 04/28/2017 144 136 K 4.0 mmol/L 04/28/2017 5.1 3.7GLUC 123 mg/dL 04/28/2017 99 74 BUN 18 mg/dL 04/28/2017 24 9 CREAT 1.19 mg/dL 04/28/2017 1.22 0.73 Lab Value Units Date High Low ABORHD A NEGA* no uni* 04/15/2017 ABSCREEN NEG no uni* 04/15/2017Most recent labs: 04/28/2017 CBC (h/h: 11.7/35.8) BMP (glucose: 123, ca: 8.2)Most recent ek04/15/2017 (SB)AssessmentASSESSMENTThere is no known pertinent medical condition which may affect charley-operativecourseCOPD/Asth ma - daily inhalers + PRN inhaler.Smoker - 0.5ppdOSA - noncompliant with cpap.Diabetes, type 2 - on PO Meds. Will check hgbA1c today.Obesity - BMI: 34.87TremorsGERD with Durbin's esophagus - Zantac, Carafate.PUD - dx with EGD. Completed course protonix Bid, had f/u egd much improvement.BPH - flomaxMETS:Climb a flight of stairs or walk up a hill (5.50 METs)Patient denies any chest pain or undue shortness of breath with the abovephysical activity.ASA Class: 3ANESTHESIA FINDINGS:Intubation History: No history of difficult intubationSignificant Anesthesia Considerations: NoneAirway Exam: General: Normal appearance Mallampati Score is CLASS I ULBT: Class I - Lower incisors can bite the upper lip above the vermillionline Neck: Normal appearance and function Mouth: Normal tongue size Dentition: Upper denture and Lower dentureAirway History: No abnormal airway historySTOP BANG Score:Criteria:SnoringAge over 50 (56 year old)Neck circumference > 15.75 inchesMale genderScore = 4PLANThis patient is optimally prepared for surgery pending LABS.CONSULTS:Patient does not require consults for optimization at this time.The Following Tests/Procedures Have Been Initiated:Orders Placed This Encounter CBC + DIFF COMP METABOLIC PANEL FERRITIN BLD IRON + TIBC STAPH AUREUS PCR TYPE + SCREEN,30 DAY Dexlansoprazole (DEXILANT) 60 mg CpDM Sig: Take by mouth twice daily.Planned Anesthetic: Per anesthesia choiceInstructions Given to Patient:Patient given verbal and written preop instructions and voices comprehension andcompliance.SIGNATURE: Lily Porras CNP PATIENT NAME: Alisia Correa Sr.DATE: June 17, 2017 : 9:03 AM PAGER/CONTACT #: [phone] Ellis, CNP 06/17/2017 9:48 AM AddendumPATIENT PREOPERATIVE INSTRUCTIONSSwati Fiore MD has scheduled you for your procedure at this surgerycenter:[facility]: [phone] --[address] [place] [address].You will need to call the day prior to your procedure for your arrival time.Please call between 3:30pm and 5pm.- on your scheduled day of surgery, please report to desk 4B.Please read below carefully for your personalized instructions.Blood Thinning Medications:- Stop NSAIDS (Ibuprofen, Advil, Aleve, Motrin, Celebrex, Mobic, etc.) 7 daysbefore surgery, as directed by your surgeon.- Stop Aspirin 7 days before surgery, as directed by your surgeon.- Stop Vitamin E, ALL multi-vitamins, herbals and dietary supplements 14 daysbefore surgery.- You may take Tylenol (Acetaminophen) or any of your pain medications that donot contain aspirin or NSAIDS as needed.Dietary Restrictions:- No solid food after midnight.- You may have 12 ounces of clear liquids (water, clear juices such as applejuice or gatorade, carbonated beverages, clear tea, black coffee, jello) until 2hours before scheduled arrival at facility.Medications:Approved medications to take the morning of surgery with a sip of water:Albuterol, Ventolin, Flomax, Zantac, Symbicort, Cymbalta, Carafate, Neurontin.- Do NOT take Viagra for 48 hours prior to surgery.- No diabetic medication the morning of surgery.- Accucheck day of surgery.If you start any new medications after today's visit, please contact the surgerycenter above.Important Reminders:- If you use CPAP/BIPAP, bring the machine with you to the surgery center.- If you are prescribed inhalers for breathing, continue using them AND bringthem to the surgery center.- Candy, mints, gum and tobacco products are NOT permitted the morning ofsurgery.- Hearing aids, dentures and glasses may be worn the morning of surgery.- NO jewelry, body piercings, makeup, nail filipino, hairpins or contacts are nirmal worn the day of surgery.- CHG wipes provided with instructions.- Glucerna, one can daily the five consecutive days prior to your surgery.If you develop symptoms such as a fever, cold, or flu, or have other changes [facility] within TWO DAYS of scheduled surgery or the morning of surgery,please contact the surgery center above.Personal Belongings:- Leave ALL valuables and money at home or with family members. Arrival Time for Surgery:- You MUST call [facility] the afternoon before surgery after3:30 pm (or Thursday for Thursday surgery) for a scheduled arrival time.Please be aware that emergency situations arise, which may delay or change yoursurgical time. If this happens, we will notify you as soon as possible andregret any inconvenience.Lily Porras, CNPPrevious VersionChrisada Chao LPN 06/17/2017 1:29 PM SignedHCG wipes, instructions and demonstration provided this visit. Pt verbalizedunderstanding. Information for joint replacement class with dates and timesprovided. Ny Chao LPN [facility] Vital Signs Date Time Vital Sign Value Performing Clinician Facility 09-02-2023 13:45-0500 Body height 180.34 cm Ellen Crabtree Other [facility] Other 09-02-2023 13:45-0500 Diastolic blood pressure 62 mm[Hg] Ellen Crabtree Other [facility] Other 09-02-2023 13:45-0500 Respiratory rate 18 /min Ellen Kuns Other [facility] Other 09-02-2023 13:45-0500 SaO2% (BldA) [Mass fraction] 97 % Ellen Kuns Other [facility] Other 09-02-2023 13:45-0500 Systolic blood pressure 92 mm[Hg] Ellen Kuns Other [facility] Other 05-19-2023 15:15-0400 Body height 180.34 cm Ellen Kuns Other [facility] Other 05-19-2023 15:15-0400 Diastolic blood pressure 60 mm[Hg] Ellen Kuns Other [facility] Other 05-19-2023 15:15-0400 Respiratory rate 18 /min Ellen Kuns Other [facility] Other 05-19-2023 15:15-0400 SaO2% (BldA) [Mass fraction] 98 % Ellen Kuns Other [facility] Other 05-19-2023 15:15-0400 Systolic blood pressure 80 mm[Hg] Ellen Kuns Other [facility] Other 03-20-2023 09:06-0400 Blood Pressure Location Fidel IBARRA [facility] 03-20-2023 09:06-0400 Diastolic blood pressure 78 mm[Hg] Fidel IBARRA [facility] 03-20-2023 09:06-0400 Heart rate 70 /min Fidel IBARRA [facility] 03-20-2023 09:06-0400 Respiratory rate 16 /min Fidel IBARRA [facility] 03-20-2023 09:06-0400 Systolic blood pressure 132 mm[Hg] Fidel IBARRA [facility] 02-20-2023 09:33-0400 Blood Pressure Location Fidel IBARRA [facility] 02-20-2023 09:33-0400 Diastolic blood pressure 78 mm[Hg] Fidel IBARRA [facility] 02-20-2023 09:33-0400 Heart rate 68 /min Fidel IBARRA [facility] 02-20-2023 09:33-0400 Respiratory rate 16 /min Fidel IBARRA [facility] 02-20-2023 09:33-0400 Systolic blood pressure 130 mm[Hg] Fidel IBARRA [facility] 01-30-2023 11:54-0400 Blood Pressure Location Fidel IBARRA [facility] 01-30-2023 11:54-0400 Diastolic blood pressure 72 mm[Hg] Fidel IBARRA [facility] 01-30-2023 11:54-0400 Heart rate 68 /min Fidel IBARRA [facility] 01-30-2023 11:54-0400 Respiratory rate 16 /min Fidel IBARRA [facility] 01-30-2023 11:54-0400 Systolic blood pressure 99 mm[Hg] Fidel IBARRA [facility] 11-11-2022 15:00-0500 Body height 180.34 cm Ellen Michis Other [facility] Other 11-11-2022 15:00-0500 Body mass index (BMI) [Ratio] 28.59 kg/m2 Ellen Kuns Other [facility] Other 11-11-2022 15:00-0500 Body temperature 95.6 [degF] Ellen Kuns Other [facility] Other 11-11-2022 15:00-0500 Body weight 92.99 kg Ellen Kuns Other [facility] Other 11-11-2022 15:00-0500 Diastolic blood pressure 56 mm[Hg] Ellen Kuns Other [facility] Other 11-11-2022 15:00-0500 Respiratory rate 18 /min Ellen Kuns Other [facility] Other 11-11-2022 15:00-0500 SaO2% (BldA) [Mass fraction] 99 % Ellen Kuns Other [facility] Other 11-11-2022 15:00-0500 Systolic blood pressure 80 mm[Hg] Ellen Kuns Other [facility] Other 09-02-2022 14:45-0500 Body height 180.34 cm Ellen Kuns Other [facility] Other 09-02-2022 14:45-0500 Body mass index (BMI) [Ratio] 27.19 kg/m2 Elleneliane Bordens Other [facility] Other 09-02-2022 14:45-0500 Body weight 88.45 kg Elleneliane Bordens Other [facility] Other 09-02-2022 14:45-0500 Diastolic blood pressure 60 mm[Hg] Ellen Michis Other [facility] Other 09-02-2022 14:45-0500 Respiratory rate 18 /min Elleneliane Bordens Other [facility] Other 09-02-2022 14:45-0500 SaO2% (BldA) [Mass fraction] 92 % Elleneliane Crabtree Other [facility] Other 09-02-2022 14:45-0500 Systolic blood pressure 92 mm[Hg] Elleneliane Bordens Other [facility] Other 02-18-2022 09:29-0400 Diastolic blood pressure 55 mm[Hg] Frank Oden MD Work Phone: [facility] 02-18-2022 09:29-0400 Systolic blood pressure 105 mm[Hg] Frank Oden MD Work Phone: [facility] 02-18-2022 08:30-0400 Body temperature 97.9 [degF] Frank Oden MD Work Phone: [facility] 02-18-2022 08:30-0400 Heart rate 75 /min Frank Oden MD Work Phone: [facility] 02-18-2022 08:30-0400 Respiratory rate 18 /min Frank Oden MD Work Phone: [facility] 02-18-2022 08:30-0400 SaO2% (BldA) [Mass fraction] 97 % Frank Oden MD Work Phone: [facility] 02-09-2022 05:15-0400 Body mass index (BMI) [Ratio] 34.44 kg/m2 Frank Oden MD Work Phone: [facility] 02-09-2022 05:15-0400 Body weight 108.86 kg Frank Oden MD Work Phone: [facility] 02-07-2022 09:09-0400 Body height 177.8 cm Frank Oden MD Work Phone: [facility] 01-27-2022 10:15-0400 Body height 180.34 cm Elleneliane Crabtree Other [facility] Other 01-27-2022 10:15-0400 Body mass index (BMI) [Ratio] 29.15 kg/m2 Ellen [employer] Other [facility] Other 01-27-2022 10:15-0400 Body weight 94.8 kg Ellen [employer] Other [facility] Other 01-27-2022 10:15-0400 Diastolic blood pressure 70 mm[Hg] Ellen [employer] Other [facility] Other 01-27-2022 10:15-0400 Respiratory rate 18 /min Ellen [employer] Other [facility] Other 01-27-2022 10:15-0400 SaO2% (BldA) [Mass fraction] 98 % Ellen [employer] Other [facility] Other 01-27-2022 10:15-0400 Systolic blood pressure 98 mm[Hg] Ellen Kuns Other [facility] Other 12-05-2021 15:00-0500 Body height 180.34 cm Ellen Kuns Other [facility] Other 12-05-2021 15:00-0500 Body mass index (BMI) [Ratio] 29.43 kg/m2 Ellen Kuns Other [facility] Other 12-05-2021 15:00-0500 Body weight 95.71 kg Ellen Kuns Other [facility] Other 12-05-2021 15:00-0500 Diastolic blood pressure 70 mm[Hg] Ellen Kuns Other [facility] Other 12-05-2021 15:00-0500 Respiratory rate 18 /min Ellen Kuns Other [facility] Other 12-05-2021 15:00-0500 SaO2% (BldA) [Mass fraction] 99 % Ellen Kuns Other [facility] Other 12-05-2021 15:00-0500 Systolic blood pressure 106 mm[Hg] Ellen Kuns Other [facility] Other 12-03-2021 16:32-0500 Body height 177.8 cm [facility] 12-03-2021 16:32-0500 Body mass index (BMI) [Ratio] 30.42 kg/m2 [facility] 12-03-2021 16:32-0500 Body surface area Derived from formula 2.18 m2 [facility] 12-03-2021 16:32-0500 Body weight 96.16 kg [facility] 12-03-2021 16:32-0500 Diastolic blood pressure 62 mm[Hg] [facility] 12-03-2021 16:32-0500 Heart rate 80 /min [facility] 12-03-2021 16:32-0500 Systolic blood pressure 102 mm[Hg] [facility] 11-19-2021 14:44-0500 Body height 177.8 cm [facility] 11-19-2021 14:44-0500 Body mass index (BMI) [Ratio] 31.18 kg/m2 [facility] 11-19-2021 14:44-0500 Body surface area Derived from formula 2.21 m2 [facility] 11-19-2021 14:44-0500 Body weight 98.57 kg [facility] 11-19-2021 14:44-0500 Diastolic blood pressure 70 mm[Hg] [facility] 11-19-2021 14:44-0500 Heart rate 64 /min [facility] 11-19-2021 14:44-0500 Systolic blood pressure 110 mm[Hg] [facility] 09-05-2021 12:00-0500 58 1 Ellen R Kuns Work Phone: [facility] [address] [place] Work Phone: Comment on above: [id number] 08-27-2021 11:30-0500 Body height 180.34 cm Ellen Kuns Other [facility] Other 08-27-2021 11:30-0500 Body mass index (BMI) [Ratio] 31.24 kg/m2 Ellen Kuns Other [facility] Other 08-27-2021 11:30-0500 Body weight 101.61 kg Ellen Kuns Other [facility] Other 08-27-2021 11:30-0500 Diastolic blood pressure 68 mm[Hg] Ellen Kuns Other [facility] Other 08-27-2021 11:30-0500 Respiratory rate 18 /min Ellen Kuns Other [facility] Other 08-27-2021 11:30-0500 SaO2% (BldA) [Mass fraction] 98 % Ellen Kuns Other [facility] Other 08-27-2021 11:30-0500 Systolic blood pressure 98 mm[Hg] Ellen Kuns Other [facility] Other 08-16-2021 14:23-0400 Diastolic blood pressure 68 mm[Hg] Ellen R Kuns Work Phone: [facility] [address] [place] Work Phone: 08-16-2021 14:23-0400 Systolic blood pressure 90 mm[Hg] Ellen R Kuns Work Phone: [facility] [address] [place] Work Phone: 08-16-2021 14:21-0400 Body height 177.8 cm Ellen R Kuns Work Phone: [facility] [address] DO Work Phone: 08-16-2021 14:21-0400 Body mass index (BMI) [Ratio] 32.14 kg/m2 Ellen R Kuns Work Phone: [facility] [address] DO Work Phone: 08-16-2021 14:21-0400 Body surface area Derived from formula 2.19 m2 Ellen R Kuns Work Phone: [facility] [address] DO Work Phone: 08-16-2021 14:21-0400 Body weight 101.61 kg Ellen R Kuns Work Phone: [facility] [address] DO Work Phone: 08-16-2021 14:21-0400 Diastolic blood pressure 68 mm[Hg] Ellen R Kuns Work Phone: [facility] [address] DO Work Phone: 08-16-2021 14:21-0400 Heart rate 72 /min Ellen R Kuns Work Phone: [facility] [address] DO Work Phone: 08-16-2021 14:21-0400 Systolic blood pressure 90 mm[Hg] Ellen R Kuns Work Phone: [facility] [address] DO Work Phone: Encounters Encounter Date Encounter Type Care Provider Facility Start: 10-21-2023 End: 10-22-2023 ambulatory Fidel IBARRA Facility:[facility] Start: 10-21-2023 End: 10-21-2023 Lab Drop off Fidel IBARRA [facility] Start: 10-05-2023 End: 10-05-2023 ambulatory Ellen Kuns Other [facility] Other Start: 10-05-2023 Telephone encounter Ellen Kuns [facility] [place] Start: 09-22-2023 End: 09-22-2023 ambulatory Ellen Kuns Other [facility] Other Start: 09-22-2023 Telephone encounter Ellen Kuns [facility] [place] Start: 09-16-2023 End: 09-16-2023 ambulatory Ellen Kuns Other [facility] Other Start: 09-16-2023 Telephone encounter Ellen Kuns [facility] [place] Start: 09-15-2023 Telephone encounter Ellen Kuns [facility] [place] Start: 09-15-2023 End: 09-16-2023 ambulatory Fidel IBARRA [employer] Other Start: 09-15-2023 End: 09-15-2023 Patient encounter procedure Fidel IBARRA [facility] Start: 09-02-2023 End: 09-02-2023 ambulatory Ellen Kuns Other [facility] Other Start: 09-02-2023 Office outpatient vi sit 25 minutes Ellen Kuns [facility] [place] Start: 08-25-2023 End: 08-25-2023 ambulatory Ellen Kuns Other [facility] Other Start: 08-25-2023 Telephone encounter Ellen Kuns [facility] [place] Start: 08-14-2023 End: 08-15-2023 ambulatory Fidel IBARRA Facility:[facility] Start: 08-14-2023 End: 08-14-2023 Patient encounter procedure Fidel IBARRA [facility] Start: 07-17-2023 End: 07-18-2023 ambulatory Fidel IBARRA Facility:[facility] Start: 07-17-2023 End: 07-18-2023 ambulatory Fidel R IBARRA Facility:[facility] Start: 07-17-2023 End: 07-17-2023 Lab Drop off Fidel IBARRA [facility] Start: 07-17-2023 End: 07-17-2023 Patient encounter procedure Fidel IBARRA [facility] Start: 07-03-2023 End: 07-03-2023 ambulatory Ellen Crabtree Other [facility] Other Start: 07-03-2023 Telephone encounter Ellen Crabtree [facility] Start: 07-02-2023 End: 07-02-2023 ambulatory Fidel IBARRA Facility:[facility] Start: 06-19-2023 End: 06-20-2023 ambulatory Fidel IBARRA Facility:[facility] Start: 06-19-2023 End: 06-20-2023 ambulatory Fidel R IBARRA Facility:[facility] Start: 06-19-2023 End: 06-19-2023 Lab Drop off Fidel IBARRA [facility] Start: 06-19-2023 End: 06-19-2023 Patient encounter procedure Fidel IBARRA [facility] Start: 06-16-2023 End: 06-16-2023 ambulatory Ellen Kuns Other [facility] Other Start: 06-16-2023 Telephone encounter Ellen Kuns [facility] [place] Start: 06-11-2023 End: 06-11-2023 ambulatory Ellen Kuns Other [facility] Other Start: 06-11-2023 Telephone encounter Ellen Kuns [facility] [place] Start: 05-26-2023 End: 05-26-2023 ambulatory Ellen Kuns Other [facility] Other Start: 05-26-2023 Telephone encounter Ellen Kuns [facility] [place] Start: 05-25-2023 End: 05-26-2023 ambulatory Fidel IBARRA Facility:[facility] Start: 05-25-2023 End: 05-25-2023 Lab Drop off Fidel IBARRA [facility] Start: 05-25-2023 End: 05-25-2023 Patient encounter procedure Fidel IBARRA [facility] Start: 05-19-2023 End: 05-19-2023 ambulatory Ellen Kuns Other [facility] Other Start: 05-19-2023 Office outpatient vi sit 25 minutes Ellen Kuns [facility] [place] Start: 04-27-2023 Telephone encounter Ellen Kuns [facility] [place] Start: 04-27-2023 End: 04-28-2023 ambulatory Fidel IBARRA [facility] [employer] Other Start: 04-27-2023 End: 04-27-2023 Patient encounter procedure Fidel IBARRA [facility] [place] Start: 04-16-2023 End: 04-16-2023 ambulatory Elleneliane Bordens Other [facility] Other Start: 04-16-2023 Telephone encounter Elleneliane Bordens [facility] Start: 03-23-2023 End: 04-20-2023 Evaluation and management of inpatient Steven Gonzales Facility:[facility] Start: 03-20-2023 End: 03-21-2023 ambulatory Fidel IBARRA Facility:[facility] Start: 03-20-2023 End: 03-21-2023 ambulatory Fidel IBARRA Facility:[facility] Start: 03-20-2023 End: 03-20-2023 Patient encounter [facility] [employer] Start: 03-20-2023 End: 03-20-2023 Patient encounter procedure Fidel IBARRA [facility] [employer] Start: 03-19-2023 End: 03-19-2023 ambulatory Ellen Crabtree Other [facility] Other Start: 03-19-2023 Telephone encounter Elleneliane Bordens [facility] Start: 02-20-2023 End: 02-21-2023 ambulatory Fidel IBARRA Facility:[employer] [place] Start: 02-20-2023 End: 02-20-2023 Patient encounter procedure Fidel IBARRA [facility] [employer] Start: 02-17-2023 End: 02-17-2023 ambulatory Elleneliane Bordens Other [facility] Other Start: 02-17-2023 Telephone encounter Elleneliane Crabtree [facility] Start: 02-16-2023 End: 02-16-2023 ambulatory Ellen Crabtree Other [facility] Other Start: 02-16-2023 Telephone encounter Elleneliane Crabtree [facility] Start: 02-11-2023 End: 02-11-2023 ambulatory Ellen Crabtree Other [facility] Other Start: 02-11-2023 Telephone encounter Ellen Crabtree [facility] Start: 01-30-2023 End: 01-31-2023 ambulatory Fidel IBARRA Facility:[facility] Start: 01-30-2023 End: 01-30-2023 Patient encounter procedure Fidel IBARRA [facility] Start: 01-28-2023 ambulatory BILL MACE Facility:[facility] Start: 01-24-2023 Encounter for preprocedural cardiovascular examination DR FIDEL IBARRA . [facility] Start: 01-24-2023 Encounter for preprocedural laboratory examination DR FIDEL IBARRA . [facility] Start: 01-22-2023 End: 01-23-[address] FIDEL IBARRA . Facility: Start: 01-20-2023 End: 01-21-[address] FIDEL IBARRA . Facility: Start: 01-20-2023 End: 01-21-2023 Encounter for preprocedural cardiovascular examination DR FIDEL IBARRA . Facility: Start: 01-16-2023 End: 01-17-2023 ambulatory Fidel IBARRA Facility:[facility] Start: 01-14-2023 End: 01-14-2023 ambulatory Ellen Crabtree Other [facility] Other Start: 01-14-2023 Telephone encounter Ellen Crabtree [facility] Start: 12-24-2022 End: 12-24-2022 Unlisted evaluation and management service Say Reyes APRN.NOC ANALYST Work Phone: Urology Comment on above: NO SHOW (Primary Dx) Start: 12-18-2022 End: 12-18-2022 ambulatory MICHELL LEYDA . Facility: Start: 12-08-2022 End: 12-08-2022 ambulatory Ellen Michis Other [facility] Other Start: 12-08-2022 Telephone encounter Ellen Kuns [facility] Start: 12-06-2022 ambulatory Zelda Saenz RN NURSE O N CALL Comment on above: Medication Problem Start: 12-01-2022 End: 12-01-2022 Evaluation and management of inpatient KANG LOYA Facility:[facility] Start: 11-20-2022 End: 12-06-2022 Evaluation and management of inpatient ELLEN BOOGIE LEYDA Facility:[facility] Start: 11-19-2022 End: 11-19-2022 ambulatory Ellen Michis Other [facility] Other Start: 11-19-2022 Telephone encounter Ellen Kuns [facility] Start: 11-17-2022 End: 11-17-2022 ambulatory Ellen Kuns Other [facility] Other Start: 11-17-2022 Telephone encounter Ellen Kuns [facility] Start: 11-14-2022 End: 11-14-2022 ambulatory Ellen Kuns Other [facility] Other Start: 11-14-2022 Telephone encounter Ellen Kuns [facility] Start: 11-11-2022 End: 11-11-2022 ambulatory Ellen Kuns Other [facility] Other Start: 11-11-2022 Office outpatient vi sit 25 minutes Ellen Kuns [facility] Start: 11-10-2022 End: 11-10-2022 ambulatory Ellen Kuns Other [facility] Other Start: 11-10-2022 Telephone encounter Ellen Kuns [facility] [place] Start: 11-05-2022 End: 11-09-2022 Evaluation and management of inpatient DR ALTON MANCINI . Facility:[facility] Start: 10-08-2022 End: 10-08-[address] DOCTOR TIPTON Facility:[facility] Start: 09-04-2022 End: 09-04-2022 ambulatory Ellen Kuns Other [facility] Other Start: 09-04-2022 Telephone encounter Ellen Kuns [facility] [place] Start: 09-03-2022 End: 09-03-2022 ambulatory Ellen Kuns Facility:[facility] Start: 09-02-2022 End: 09-02-2022 ambulatory Ellen Kuns Other [facility] Other Start: 09-02-2022 Office outpatient vi sit 25 minutes Ellen Kuns [facility] [place] Start: 08-29-2022 End: 08-29-2022 ambulatory Ellen Kuns Other [facility] Other Start: 08-29-2022 Telephone encounter Ellen Kuns [facility] [place] Start: 08-28-2022 End: 08-28-2022 ambulatory Ellen Kuns Other [facility] Other Start: 08-28-2022 Telephone encounter Ellen Kuns [facility] [place] Start: 06-17-2022 End: 06-17-2022 ambulatory Ellen Kuns Other [facility] Other Start: 06-17-2022 Telephone encounter Ellen Kuns [facility] [place] Start: 05-21-2022 End: 05-21-2022 ambulatory Ellen Kuns Other [facility] Other Start: 05-21-2022 Telephone encounter Ellen Michis [facility] Start: 04-08-2022 End: 04-08-2022 ambulatory Ellen Kuns Other [facility] Other Start: 04-08-2022 Telephone encounter Ellen Michis [facility] Start: 04-03-2022 Telephone encounter Ellen Shell ns Work Phone: [facility] [address] DO Work Phone: Start: 03-25-2022 End: 03-25-2022 ambulatory Ellen Michis Other [facility] Other Start: 03-25-2022 Telephone encounter Ellen Michis [facility] Start: 03-18-2022 End: 03-18-2022 ambulatory Ellen Kuns Other [facility] Other Start: 03-18-2022 Telephone encounter Ellen Michis [facility] Start: 03-10-2022 End: 03-10-2022 ambulatory Ellen Kuns Other [facility] Other Start: 03-10-2022 Telephone encounter Ellen Michis [facility] Start: 02-07-2022 End: 02-18-2022 Evaluation and management of inpatient FRANK ODEN [facility] Start: 02-07-2022 End: 02-18-2022 Evaluation and management of inpatient Frank Oden MD Work Phone: [facility]K Comment on above: Lumbar stenosis with neurogenic claudication (Primary Dx) Start: 01-27-2022 End: 01-27-2022 ambulatory Ellen Michis Other [facility] Other Start: 01-27-2022 Encounter for other preprocedural examination Elleneliane Bordens [facility] Start: 01-27-2022 Office outpatient vi sit 25 minutes Elleneliane Bordens [facility] Start: 01-27-2022 Pre-procedure evalua tion check Ellen Crabtree Other [facility] Other Start: 01-23-2022 End: 01-24-2022 ambulatory [facility] Start: 01-23-2022 End: 01-28-2022 ambulatory [facility] Start: 01-20-2022 End: 01-20-2022 ambulatory Ellen Michis Other [facility] Other Start: 01-20-2022 Telephone encounter Ellen Bordens [facility] Start: 01-13-2022 End: 01-13-2022 ambulatory Elleneliane Bordens Other [facility] Other Start: 01-13-2022 Telephone encounter Ellen Crabtree [facility] Start: 12-05-2021 End: 12-05-2021 ambulatory Ellen Michis Other [facility] Other Start: 12-05-2021 Office outpatient vi sit 25 minutes Ellen Michis [facility] Start: 12-03-2021 Split Srvc Lashon Barragan rne Other [facility] Office Start: 11-19-2021 Split Srvc Lashon Silver Osbo rne Other [facility] Office Start: 11-11-2021 Telephone encounter Phani Henderson MD Work Phone: Pain Management Comment on above: Post Op Start: 10-23-2021 End: 10-23-2021 ambulatory Ellen Michis Other [facility] Other Start: 10-23-2021 Telephone encounter Ellen Kuns [facility] [place] Start: 10-07-2021 End: 10-07-2021 ambulatory Ellen Kuns Other [facility] Other Start: 10-07-2021 Telephone encounter Ellen Kuns [facility] [place] Start: 09-30-2021 End: 09-30-2021 ambulatory Ellen Kuns Other [facility] Other Start: 09-30-2021 Telephone encounter Ellen Kuns [facility] [place] Start: 09-27-2021 End: 09-27-2021 ambulatory Yifan Gama Other [facility] Other Start: 09-27-2021 Telephone encounter Yifan Gama [facility] Gastroenter[facility] Start: 09-08-2021 Chart Update Ellen R Kuns Work Phone: [facility] [address] [place] Work Phone: Start: 09-05-2021 Patient encounter procedure Ellen R Kuns Work Phone: [facility] [address] [place] Work Phone: Start: 09-03-2021 End: 09-03-2021 ambulatory Ellen Kuns Other [facility] Other Start: 09-03-2021 Telephone encounter Ellen Kuns [facility] [place] Start: 08-27-2021 End: 08-27-2021 ambulatory Ellen Kuns Other [facility] Other Start: 08-27-2021 Office outpatient vi sit 25 minutes Ellen Kuns [facility] [place] Start: 08-21-2021 End: 08-21-2021 ambulatory Ellen Kuns Other [facility] [employer] Other Start: 08-21-2021 Telephone encounter Ellen Crabtree [facility] Start: 08-16-2021 Office consultation new/estab patient 80 min Ellen R Michidavion Work Phone: [facility] [address] [place] Work Phone: Start: 08-16-2021 Patient encounter procedure Ellen R Michidavion Work Phone: [facility] [address] DO Work Phone: Start: 08-16-2021 Telephone encounter Yifan Silver [facility] Start: 08-06-2021 Office outpatient vi sit 15 minutes Ellen Crabtree [facility] Start: 08-15-2020 End: 08-15-2020 Subsequent hospital visit by physician Ct [facility] Joana Work Phone: Radiology Comment on above: Radiculopathy of lum bar region [M54.16] Start: 06-21-2020 End: 06-21-2020 Subsequent hospital visit by physician Xr [facility] [place] [facility] Comment on above: 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] Start: 06-15-2020 End: 06-15-2020 Subsequent hospital visit by physician Ct [facility] Joana Work Phone: Radiology Comment on above: Pain in thoracic spi ne [M54.6] Start: 12-29-2017 End: 12-31-2017 [facility] Start: 12-07-2017 Ambulatory [facility] access hospital Start: 07-01-2017 End: 07-02-2017 Evaluation and management of inpatient [facility] Start: 05-30-2016 End: 06-16-2016 Ambulatory PROVIDER UNKNOWN Facility:[facility] Procedures Date Procedure Procedure Detail Performing Clinician Start: 01-22-2023 Insertion of suprapu bic catheter using ultrasound guidance Fidel IBARRA Start: 12-03-2022 Echocardiography ELLEN CRABTREE Start: 05-03-2022 Gluc bld gluc mntr d ev cleared fda spec home use Tucker Robbins MD Work Phone: Start: 02-18-2022 COVID-19, RAPID Frank Oden MD Work Phone: Start: 02-18-2022 Gluc bld gluc mntr d ev cleared fda spec home use Tucker Robbins MD Work Phone: Start: 02-17-2022 Gluc bld gluc mntr d ev cleared fda spec home use Tucker Robbins MD Work Phone: Start: 02-17-2022 Gluc bld gluc mntr d ev cleared fda spec home use Tucker Robbins MD Work Phone: Start: 02-17-2022 Gluc bld gluc mntr d ev cleared fda spec home use Tucker Robbins MD Work Phone: Start: 02-16-2022 Gluc bld gluc mntr d ev cleared fda spec home use Tucker Robbins MD Work Phone: Start: 02-16-2022 Gluc bld gluc mntr d ev cleared fda spec home use Frank Oden MD Work Phone: Start: 02-16-2022 Gluc bld gluc mntr d ev cleared fda spec home use Tucker Robbins MD Work Phone: Start: 02-16-2022 End: 02-16-2022 Gluc bld gluc mntr dev cleared fda spec home use Tucker Robbins MD Work Phone: Start: 02-15-2022 Gluc bld gluc mntr d ev cleared fda spec home use Tucker Robbins MD Work Phone: Start: 02-15-2022 Gluc bld gluc mntr d ev cleared fda spec home use Tucker Robbins MD Work Phone: Start: 02-15-2022 Anion gap [Moles/Vol] O cheryl Parra MD Work Phone: Start: 02-15-2022 Basic metabolic pane l calcium total Evelina Parra MD Work Phone: Start: 02-15-2022 GLOMERULAR FILLOYDATIO N RATE, ESTIMATED Evelina Parra MD Work Phone: Start: 02-15-2022 Gluc bld gluc mntr d ev cleared fda spec home use Tucker Robbins MD Work Phone: Start: 02-15-2022 Gluc bld gluc mntr d ev cleared fda spec home use Tucker Robbins MD Work Phone: Start: 02-14-2022 End: 02-14-2022 Gluc bld gluc mntr dev cleared fda spec home use Tucker Robbins MD Work Phone: Start: 02-13-2022 Gluc bld gluc mntr d ev cleared fda spec home use Tucker Robbins MD Work Phone: Start: 02-13-2022 Gluc bld gluc mntr d ev cleared fda spec home use Tucker Robbins MD Work Phone: Start: 02-13-2022 Gluc bld gluc mntr d ev cleared fda spec home use Tucker Robbins MD Work Phone: Start: 02-13-2022 Gluc bld gluc mntr d ev cleared fda spec home use Tucker Robbins MD Work Phone: Start: 02-12-2022 Gluc bld gluc mntr d ev cleared fda spec home use Tucker Robbins MD Work Phone: Start: 02-12-2022 Gluc bld gluc mntr d ev cleared fda spec home use Tucker Robbins MD Work Phone: Start: 02-12-2022 Anion gap [Moles/Vol] O cheryl Parra MD Work Phone: Start: 02-12-2022 Basic metabolic pane l calcium total Evelina Parra MD Work Phone: Start: 02-12-2022 GLOMERULAR FILTRATIO N RATE, ESTIMATED Evelina Parra MD Work Phone: Start: 02-12-2022 Gluc bld gluc mntr d ev cleared fda spec home use Tucker Robbins MD Work Phone: Start: 02-12-2022 Gluc bld gluc mntr d ev cleared fda spec home use Tucker Robbins MD Work Phone: Start: 02-11-2022 Gluc bld gluc mntr d ev cleared fda spec home use Tucker Robbins MD Work Phone: Start: 02-11-2022 Gluc bld gluc mntr d ev cleared fda spec home use Frank Oden MD Work Phone: Start: 02-11-2022 Gluc bld gluc mntr d ev cleared fda spec home use Frank Oden MD Work Phone: Start: 02-11-2022 Gluc bld gluc mntr d ev cleared fda spec home use Frank Oden MD Work Phone: Start: 02-11-2022 Blood count complete automated Evelina Parra MD Work Phone: Start: 02-10-2022 End: 02-10-2022 Assay of thyroid stimulating hormone tsh Evelina Parra MD Work Phone: Start: 02-10-2022 VITAMIN B12 & FOLATE Hitesh Parra MD Work Phone: Start: 02-10-2022 Gluc bld gluc mntr d ev cleared fda spec home use Frank Oden MD Work Phone: Start: 02-10-2022 Gluc bld gluc mntr d ev cleared fda spec home use Frank Oden MD Work Phone: Start: 02-10-2022 Echo tthrc r-t 2d w/wom-mode compl spec&colr d Bala Schrader MD Work Phone: Start: 02-10-2022 Gluc bld gluc mntr d ev cleared fda spec home use Frank Oden MD Work Phone: Start: 02-09-2022 Gluc bld gluc mntr d ev cleared fda spec home use Frank Oden MD Work Phone: Start: 02-09-2022 Gluc bld gluc mntr d ev cleared fda spec home use Frank Oden MD Work Phone: Start: 02-09-2022 Cortisol total Marcos Jorgensen MD Work Phone: Start: 02-09-2022 End: 02-09-2022 Cortisol total Marielena Ramsey STRAPPING 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 - NOC ANALYST Work Phone: Start: 02-09-2022 Gluc bld gluc mntr d ev cleared fda spec home use Frank Oden MD Work Phone: Start: 02-09-2022 Cortisol total Marcos Jorgensen MD Work Phone: Start: 02-09-2022 Blood count complete auto&auto difrntl wbc Marielena Ramsey STRAPPING 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 - NOC ANALYST Work Phone: Start: 02-09-2022 Gluc bld gluc mntr d ev cleared fda spec home use Frank Oden MD Work Phone: Start: 02-08-2022 Gluc bld gluc mntr d ev cleared fda spec home use Frank Oden MD Work Phone: Start: 02-08-2022 Anion gap [Moles/Vol] J coy Ramsey STRAPPING 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 - NOC ANALYST Work Phone: Start: 02-08-2022 End: 02-08-2022 Basic metabolic panel calcium total Marcos Jorgensen MD Work Phone: Start: 02-08-2022 GLOMERULAR FILTRATIO N RATE, ESTIMATED Marielena Ramsey STRAPPING 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 - NOC ANALYST Work Phone: Start: 02-08-2022 SCAN OF BLOOD SMEAR Ricardo Mustafa STRAPPING 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 - NOC ANALYST Work Phone: Start: 02-08-2022 Gluc bld gluc mntr d ev cleared fda spec home use Frank Oden MD Work Phone: Start: 02-08-2022 Gluc bld gluc mntr d ev cleared fda spec home use Frank Oden MD Work Phone: Start: 02-08-2022 Radiologic exam ches t single view Marielena Mustafa STRAPPING 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 - NOC ANALYST Work Phone: Start: 02-08-2022 Blood count hemoglobin Marielena Mustafa STRAPPING 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 - NOC ANALYST Work Phone: Start: 02-08-2022 Ecg routine ecg w/le ast 12 lds i&r only Marielena Mustafa STRAPPING 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 - NOC ANALYST Work Phone: Start: 02-08-2022 Gluc bld gluc mntr d ev cleared fda spec home use Frank Oden MD Work Phone: Start: 02-08-2022 Anion gap [Moles/Vol] U nknown Provider Result Start: 02-08-2022 End: 02-08-2022 Basic metabolic panel calcium total Maki Reed PA-C Work Phone: Start: 02-08-2022 GLOMERULAR FILTRATIO N RATE, ESTIMATED Unknown Provider Result Start: 02-07-2022 Gluc bld gluc mntr d ev cleared fda spec home use Frank Oden MD Work Phone: Start: 02-07-2022 Gluc bld gluc mntr d ev cleared fda spec home use Frank Oden MD Work Phone: Start: 02-07-2022 Radex spine 1 view s pecify level Frank Oden MD Work Phone: Start: 02-07-2022 Radex spine 1 view s pecify level Frank Oden MD Work Phone: Start: 02-07-2022 End: 02-07-2022 Posterior segmental instrumentation 3-6 vrt seg Frank Oden MD Work Phone: Start: 02-07-2022 Antibody screen Frank Oden MD Work Phone: Comment on above: Performed at [facility] [address] [place] [address] Start: 02-07-2022 Gluc bld gluc mntr d ev cleared fda spec home use Frank Oden MD Work Phone: Start: 02-07-2022 Blood typing serologic abo Frank Oden MD Work Phone: Start: 12-03-2021 Nerve conduction barbara dies 9-10 studies Lashon Hamm Start: 11-19-2021 Nerve conduction barbara dies 7-8 studies Lashon Hamm Start: 10-25-2020 Adult depression scr eening assessment Phani Henderson MD Work Phone: Start: 08-15-2020 Ct lumbar spine w/o contrast material Gary Paniagua DO Work Phone: Start: 06-21-2020 Radex spine lumbosac ral 2/3 views Phani Henderson MD Work Phone: Start: 06-15-2020 Ct thoracic spine w/ o contrast material Oumou Mcqueen APRN.NOC ANALYST Work Phone: Start: 04-24-2020 Antibody screen Start: 10-18-2019 Antibody screen Start: 03-08-2019 Procedure on prostate P magali IBARRA Start: 03-08-2019 Transurethral prostatectomy Fidel IBARRA Start: 01-25-2019 Injection of therape utic substance into bladder wall Fidel IBARRA Start: 10-19-2018 Total colonoscopy Ellen Crabtree Work Phone: Start: 02-08-2018 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 Phani Henderson MD Work Phone: Start: 01-26-2018 Transurethral insert ion of prostatic urethral lift implant Fidel IBARRA Start: 12-01-2017 Cystoscopy Fidel STILL Start: 10-28-2017 Urodynamic studies Erin IBARRA Start: 08-11-2016 Colonoscopy Phani daniels MD Work Phone: Arthroplasty of knee Ellen R Kuns Work Phone: Comment on above: x 3; Arthroplasty of knee Fidel IBARRA Bypass of stomach Fidel JEWEL STILL Colonoscopy Fidel IBARRA Esophagogastrostomy, antesternal or antethoracic Ellen R Kuns Work Phone: Operation on the ear Ellen R Kuns Work Phone: Comment on above: reconstruction; Operative procedure on hand Ellen R Kuns Work Phone: Comment on above: x 3 - right; Procedure on back Ellen R Ku ns Work Phone: Comment on above: x 8; Procedure on lymph node Sunny t R Kuns Work Phone: Comment on above: right neck; Prosthetic arthropla sty of shoulder Ellen R Kuns Work Phone: Comment on above: left; Prosthetic arthropla sty of the hip Ellen R Kuns Work Phone: Comment on above: bilateral; Repair of musculoten dinous cuff of shoulder Ellen R Kuns Work Phone: Comment on above: x 2 right; Shoulder region stru cture (body structure) Fidel IBARRA Tonsillectomy Fidel IBARRA Plan of Treatment Date Care Activity Detail Author Start: 11-15-2028 DTaP/Tdap/Td vaccine (3 - Td or Tdap) DTaP/Tdap/Td vaccine (3 - Td or Tdap) [facility] Start: 11-15-2028 Urine microalbumin profile DTAP,TDAP,TD (3 - Td or Tdap) [facility] Start: 08-11-2026 Colonoscopy COLONOSCOPY [facility] Start: 08-11-2026 COLORECTAL CANCER SCREENING COLORECTAL CANCER SCREENING [facility] Start: 01-23-2025 Diabetes screen Diabetes screen [facility] Start: 11-29-2023 Hepatitis B surface antibody level LDL CHOLESTEROL [facility] Start: 11-16-2023 ambulatory Ambulatory Facility:[facility] Start: 2023 PNEUMOCOCCAL (3 - PP SV23 if available, else PCV20) PNEUMOCOCCAL (3 - PPSV23 if available, else PCV20) [facility] Start: 2023 PNEUMOCOCCAL (3 - PP SV23 or PCV20) PNEUMOCOCCAL (3 - PPSV23 or PCV20) [facility] Start: 2023 Pneumococcal 0-64 ye ars Vaccine (3 - PPSV23 or PCV20) Pneumococcal 0-64 years Vaccine (3 - PPSV23 or PCV20) [facility] Start: 06-19-2023 Influenza vaccination INFLUENZA (#1) [facility] Start: 10-19-2022 DEPRESSION ASSESSMENT DEPRESSION ASS ESSMENT [facility] Start: 01-01-2022 COVID-19 VACCINE (5 - Booster for Moderna series) COVID-19 VACCINE (5 - Booster for Moderna series) [facility] Start: 01-01-2022 COVID-19 VACCINE (6 - Moderna series) COVID-19 VACCINE (6 - Moderna series) [facility] Start: 10-25-2021 Adult depression screening assessment DEPRESSION SCREENING [facility] Start: 10-24-2021 FUV, Provider: Ren Watson, Status: Pen, Time: 10:10 AM FUV, Provider: Ren Watson, Status: Pen, Time: 10:[address] Work Phone: Start: 09-05-2021 STRESS NUC, Provider : BRIGITTE POOLE NUCLEAR ,[id number], Status: Pen, Time: 12:00 PM STRESS NUC, Provider: BRIGITTE POOLE NUCLEAR ,[id number], Status: Pen, Time: 12:00 PM -Located Within [facility]Brigitte Fajardo DO Work Phone: Start: 10-25-2020 Hemoglobin A1c/Hemoglobin.total in Blood HBA1C [facility] Start: 08-10-2020 ANNUAL PCP TEAM PODOPEDIATRICIAN MARYAM DISEASE VISIT ANNUAL PCP TEAM CHRONIC DISEASE VISIT [facility] Start: 03-16-2019 Shingles vaccine (2 of 2) Shingles vaccine (2 of 2) [facility] Start: 03-16-2019 SHINGRIX VACCINE (2 of 2) SHINGRIX VACCINE (2 of 2) [facility] Start: 04-27-2018 3 comp foot exam completed DIABETIC FOOT EXAM [facility] Start: 2013 Influenza vaccination LUNG CANCER [facility] Start: 2013 PROSTATE CANCER SCREENING DISCUSSION PROSTATE CANCER SCREENING DISCUSSION [facility] Start: 2008 Influenza vaccination LUNG CANCER [facility] Start: 2008 Screening for malign ant neoplasm of lung Low dose CT lung screening [facility] Start: 2003 COLOGUARD (FIT-DNA) COLOGUARD (FIT-D NA) [facility] Start: [address] COLONOGRAPHY [facility] Start: 2003 FECAL OCCULT BLOOD FECAL OCCULT BLOO D [facility] Start: 2003 Screening for malign ant neoplasm of colon [facility] Start: 2003 SIGMOIDOSCOPY SIGMOIDOSCOPY [facility] Start: 1988 Zoledronic acid therapy ALPHA- 1 ANTITRYPSIN DEFICIENCY SCREENING [facility] Start: 1976 BP CONTROLLED (<130/80) BP CONTROLLE D (<130/80) [facility] Start: 1976 Hepatitis B surface antibody level LDL CHOLESTEROL [facility] Start: 1976 HEPATITIS C SCREENING HEPATITIS C [facility] Start: 1976 Hepatitis C screening Hepatitis C [facility] Start: 1976 HIV SCREENING HIV SCREENING [facility] Start: 1976 SPIROMETRY SPIROMETRY [facility] Start: 1973 HIV screening HIV screen [facility] Start: 1970 Depression Screen Depression Screen [facility] Start: 1968 Hepatitis B screening URINE AL BUMIN:CREATININE RATIO [facility] Start: 1968 Hepatitis C antibody , confirmatory test DILATED RETINAL EXAM [facility] Start: 1968 Lipid panel Lipids [facility] Start: 1958 Annual Wellness Visi t (AWV) Annual Wellness Visit (AWV) [facility] Glucose [Mass/volume ] in Serum or Plasma [employer] Phone: Comment on above: 4X Daily (AC & HS) u ntil discontinued starting 02/11/2022, 27 completed As Needed until disc ontinued starting 02/11/2022 Home BIPAP or CPAP Home BIPAP or CPAP Respiratory Care Routine QHS until discontinued starting 02/16/2022 [employer] Phone: Comment on above: QHS until discontinu ed starting 02/16/2022 Oxygen therapy [[facility] Data Set] Initiate Oxygen Therapy Protocol Respiratory Care Routine As Needed until discontinued starting 02/07/2022 [employer] Phone: Comment on above: As Needed until disc ontinued starting 02/07/2022 [facility] Immunizations Immunization Date Immunization Notes Care Provider Fa [facility] 10-21-2022 pneumococcal conjuga te vaccine, 13 valent Fidel IBARRA [facility] 09-18-2022 influenza virus vaccine, unspecified formulation Fidel IBARRA [facility] 09-02-2022 influenza, injectabl e, quadrivalent, contains preservative Ellen Crabtree Other [employer] Other 09-02-2022 influenza virus vaccine, unspecified formulation Fidel IBARRA [facility] 11-06-2021 COVID-19, Moderna, 100mcg/0.5ml Lashon Hamm [facility] 10-15-2021 influenza virus vaccine, unspecified formulation Fidel IBARRA [facility] 10-15-2021 Influenza, injectabl e, Madin [place] Canine Kidney, preservative free, quadrivalent Ellen R Kuns Work Phone: [facility] [address] DO Work Phone: 10-15-2021 Moderna COVID-19 Vaccine 100 MCG/0.5ML Intramuscular Suspension Ellen R Kuns Work Phone: [facility] 01-30-2021 COVID-19, Moderna, 100mcg/0.5ml Lashon Strutta 01-09-2021 COVID-19 Vaccine Moderna - Documentation Purposes Only Ellen Kuns Other [facility] 01-02-2021 COVID-19, Moderna, 100mcg/0.5ml L[facility] [employer] 12-13-2020 COVID-19 Vaccine Moderna - Documentation Purposes Only Ellen Kuns Other [facility] 07-17-2020 influenza virus vaccine, unspecified formulation Fidel IBARRA [facility] 07-17-2020 influenza, injectabl e, quadrivalent, contains preservative Ellen Kuns Other [facility] 04-12-2020 Toradol per 15 mg Ellen Kuns Other [employer] Other 08-24-2019 influenza virus vaccine, unspecified formulation Fidel IBARRA [facility] 08-24-2019 influenza, high dose seasonal, preservative-free Ellen Kuns Other [facility] 01-19-2019 zoster vaccine recombinant Ellen Kuns Other [facility] 11-15-2018 pneumococcal conjuga te vaccine, 13 valent Phani Henderson MD Work Phone: [facility] 11-15-2018 tetanus toxoid, redu whitney diphtheria toxoid, and acellular pertussis vaccine, adsorbed Phani Henderson MD Work Phone: [facility] 07-07-2018 influenza virus vaccine, unspecified formulation Fidel IBARRA [facility] 07-07-2018 influenza, injectabl e, quadrivalent, contains preservative Ellen Kuns Other [facility] 05-06-2018 Toradol per 15 mg Ellen Kuns Other [employer] Other 10-03-2017 Toradol per 15 mg Ellen Kuns Other [employer] Other 09-17-2017 Toradol per 15 mg Ellen Kuns Other [employer] Other 07-01-2017 influenza virus vaccine, unspecified formulation Fidel IBARRA [facility] 07-01-2017 influenza, injectabl e, quadrivalent, preservative free Ellen R Kuns Work Phone: [facility] 03-24-2017 Toradol per 15 mg Ellen Kuns Other [employer] Other 01-29-2017 Toradol per 15 mg Ellen Kuns Other [employer] Other 12-25-2016 Toradol per 15 mg Ellen Kuns Other [employer] Other 08-12-2016 influenza virus vaccine, unspecified formulation Fidel IBARRA [facility] 08-12-2016 influenza, high dose seasonal, preservative-free Ellen R Kuns Work Phone: [facility] 08-12-2016 Toradol per 15 mg Ellen Kuns Other [employer] Other 08-12-2016 influenza, injectabl e, quadrivalent, contains preservative Ellen Kuns Other [employer] Other 01-17-2016 Toradol per 15 mg Ellen Kuns Other [employer] Other 10-22-2015 tetanus toxoid, redu whitney diphtheria toxoid, and acellular pertussis vaccine, adsorbed Ellen Kuns Other [facility] 10-22-2015 Toradol per 15 mg Ellen Kuns Other [employer] Other 07-23-2015 influenza virus vaccine, unspecified formulation Fidel IBARRA [facility] 07-23-2015 influenza, injectabl e, quadrivalent, preservative free Ellen R Kuns Work Phone: [facility] 07-23-2015 influenza, injectabl e, quadrivalent, contains preservative Ellen Kuns Other [employer] Other 10-26-2014 Toradol per 15 mg Ellen Kuns Other [employer] Other 10-26-2014 influenza, injectabl e, quadrivalent, contains preservative Ellen Kuns Other [employer] Other 07-11-2014 Toradol per 15 mg Ellen Kuns Other [employer] Other 06-27-2014 Toradol per 15 mg Ellen Kuns Other [employer] Other 04-20-2014 Toradol per 15 mg Ellen Kuns Other [employer] Other 01-18-2013 Toradol per 15 mg Ellen Kuns Other [employer] Other 09-15-2012 influenza virus vaccine, split virus (incl. purified surface antigen) Ellen Kuns Other [employer] Other 07-15-2010 influenza virus vaccine, unspecified formulation Phani Henderson MD Work Phone: [facility] 08-24-2009 novel [id number], preservative-free, injectable Ellen R Kuns Work Phone: [facility] 08-16-2002 hepatitis B vaccine, adult dosage Ellen R Kuns Work Phone: [facility] 01-27-2002 hepatitis B vaccine, adult dosage Ellen R Kuns Work Phone: [facility] 08-13-1995 pneumococcal polysaccharide vaccine, 23 valent Ellen Kundavion Other [facility] Payers Date Payer Category Payer Unknown [id number] 2022 Self-pay 2021 Medicare AETNA MEDICARE A ETNA MEDICARE O [id number] 2021-Present [phone] [address] [place] [address] [facility] [id number] 2019 Medicare [id number] 2004 Unknown 1959 Medicare [id number] [id number] 1959 Medicare [id number] 1959 Unknown [id number] 1958 Unknown [id number] 2.16.840.1.780167.3.579.2.93 1958 Unknown [id number] 2.16.840.1.543676.3.579.2.93 1958 Unknown [id number] 2.16.840.1.547339.3.579.2.93 1958 Unknown [id number] 2.16.840.1.120912.3.579.2.593 1958 Unknown [id number] 2.16.840.1.064277.3.579.2.593 1958 Unknown [id number] 2.16.840.1.194826.3.579.2.593 1958 Unknown [id number] 2.16.840.1.917099.3.579.2.593 1958 Unknown [id number] 2.16.840.1.802102.3.579.2.593 1958 Unknown [id number] 2.16.840.1.930112.3.579.2.727 1958 Unknown [id number] 2.16.840.1.513932.3.579.2.727 1958 Unknown [id number] 2.16.840.1.270520.3.579.2.727 1958 Unknown [id number] 2.16.840.1.686078.3.579.2.727 1958 Unknown [id number] 2.16.840.1.694822.3.579.2.727 1958 Unknown [id number] 2.16.840.1.454997.3.579.2.72 1958 Unknown [id number] 2.16.840.1.336980.3.579.2.72 1958 Unknown [id number] 2.16.840.1.572554.3.579.2.72 1958 Unknown [id number] 2.16.840.1.571911.3.579.2.72 1958 Unknown [id number] 2.16.840.1.416529.3.579.2.72 1958 Unknown [id number] 2.16.840.1.652095.3.579.2.72 1958 Unknown [id number] 2.16.840.1.067934.3.579.2. 1958 Unknown [id number] 2.16.840.1.497500.3.579.2.72 1958 Unknown [id number] 2.16.840.1.088922.3.579.2.72 1958 Unknown [id number] 2.16.840.1.858997.3.579.2.72 1958 Unknown [id number] 2.16.840.1.056206.3.579.2.72 1958 Unknown [id number] 2.16.840.1.303935.3.579.2.72 1958 Unknown [id number] 2.16.840.1.774212.3.579.2.72 1958 Unknown [id number] 2.16.840.1.334532.3.579.2.72 Unknown [id number] 2.16.840.1.287398.3.579.2.531 Unknown [id number] 2.16.840.1.387645.3.579.2.531 Social History Date Type Detail Facility Start: 04-15-2017 End: 05-04-2020 No alcohol use No alcohol use [facility] Comment on above: Coffee 3 cups daily; 6 ciggs daily; Start: Smoker [employer] [employer] Start: 12-07-1982 End: 04-24-2020 Tobacco smoking status NHIS Smokes tobacco daily [facility] Start: 12-07-1982 History of tobacco use Cigarette Smo ker [facility] Start: 04-15-2017 End: 04-24-2020 Tobacco use and exposure Smokeless tobacco non-user [facility] Start: 05-29-2020 End: 10-10-2021 Alcohol intake Current non-drinker of alcohol (finding) [facility] Start: 05-04-2020 End: 11-25-2022 History SDOH Financial 4 [facility] Start: 05-04-2020 End: 11-25-2022 History SDOH Food Worry 1 [facility] Start: 05-04-2020 End: 11-25-2022 History SDOH Transport Med 2 [facility] Start: 06-21-2020 Tobacco Comment currently 8 ci garettes a day [facility] Start: 1960 Sex Assigned At Not on file C [facility] Start: 05-22-2020 End: 02-07-2022 Exposure to SARS-CoV-2 (event) Not sure [facility] Start: 02-09-2022 Alcohol intake Lifetime non-d margarita (finding) [facility] Work Phone: Start: 05-12-2019 End: 05-04-2020 Sex Assigned At [facility] Start: 01-16-2023 End: 02-20-2023 Tobacco smoking status Ex-smoker (finding) [facility] Tobacco smoking status Never [facility] How hard is it for y ou to pay for the very basics like food, housing, medical care, and heating Not very hard [facility] (I/We) worried heriberto er (my/our) food would run out before (I/we) got money to buy more. Never true [facility] Start: 04-24-2020 Tobacco Comment currently 1/2 pack day since 01/2020 [facility] Start: 05-05-2020 End: 06-04-2020 Exposure to SARS-CoV-2 (event) Unable to assess [facility] Medical Equipment Procedure Code Equipment Code Equipment Origin al Text Equipment Identifier Dates Restrictor 24mm Medium Inglis Cement Revision Plug Hip - [id number] Start: 04-27-2017 Cement Simplex P Tobramycin Bone Full Dose Radiopaque Preblend Sterile - [id number] Start: 04-27-2017 Restrictor 30mm Large Inglis Cement Revision Plug Hip - [id number] Start: 04-27-2017 Cement Simplex P Speedset Bone Radiopaque Sterile - [id number] Start: 12-29-2017 Eyh-Io-A-Kind Implant - [id number] Start: 06-05-2016 Comment on above: Description: CONCHARO C ORP. N300 LEAD ANCHOR KIT Head Global Unit e 52mm Standard 18mm Humeral - [id number] Start: 12-29-2017 Nevro Surgical L ead Kit [id number] Start: 03-16-2018 Head V40 28mm -2 .7mm Offset Taper Biolox Delta Femoral Hip - [id number] Start: 11-08-2019 Liner 46mm F Dylon r Acetabular Modular Dual Mobility Primary Hip - [id number] Start: 11-08-2019 Insert Adm Mobil e Bearing Hip Moravian 52mm 28mm 0d X3 8.9mm Acetabular - [id number] Start: 11-08-2019 Insert Adm Mobil e Bearing Hip Moravian 52mm 28mm 0d X3 8.9mm Acetabular - [id number] Start: 05-03-2020 Head V40 28mm +4 mm Offset Taper Biolox Delta Femoral Hip - [id number] Start: 05-03-2020 Liner 46mm F Dylon r Acetabular Modular Dual Mobility Primary Hip - [id number] Start: 05-03-2020 Stem Triathlon 1 2mm Cocr 100mm Femoral Cemented Total Stabilized Knee - [id number] Start: 04-27-2017 Stem Triathlon 1 5mm Cocr 50mm Femoral Cemented Total Stabilize Knee - [id number] Start: 04-27-2017 Component Triath lisy 7 Cocr Femoral Total Stabilize Knee Left - [id number] Start: 04-27-2017 Augment Triathlo n 7 5mm Femoral Total Stabilize Knee Posterior - [id number] Start: 04-27-2017 Augment Triathlo n 7 5mm Femoral Total Stabilize Knee Left - [id number] Start: 04-27-2017 Augment Triathlo n 7 5mm Femoral Total Stabilize Knee Left - [id number] Start: 04-27-2017 Augment Triathlo n 6 10mm Tibial Total Stabilize Right Medial Left Lateral - [id number] Start: 04-27-2017 Baseplate Triath lisy 6 Inglis Cocr Tibial Total Stabilize Cemented Knee - [id number] Start: 04-27-2017 Augment Triathlo n 6 10mm Tibial Total Stabilize Left Medial Right Lateral - [id number] Start: 04-27-2017 Insert Triathlon 6 X3 16mm Tibial Total Stabilize Plus Knee - [id number] Start: 04-27-2017 Component Triath lisy 7 Pa Femoral Cruciate Retain Bead Knee Right - [id number] Start: 07-01-2017 Insert Triathlon 6 X3 13mm Tibial Condylar Stabilized Knee - [id number] Start: 07-01-2017 Baseplate Triath lisy 6 Tritanium 24y61et Tibial 4 Cruciform Peg Keel Knee - [id number] Start: 07-01-2017 Component Tritan ium 35mm Metal 10mm Patellar Asymmetric Knee - [id number] Start: 07-01-2017 Component Triath lisy 35mm 10mm Patellar Asymmetric Knee - [id number] Start: 04-27-2017 Head 48mm 7mm Humeral Hume Peg Left Glenoid - [id number] Start: 12-29-2017 Stem Global Ap 1 2mm Porocoat 137mm Humeral Arthroplasty System Shoulder - [id number] Start: 12-29-2017 Assembly Global Ap 135d Taper Fix Shoulder Arthroplasty System - [id number] Start: 12-29-2017 Augment Triath T ib Cone Sz A - [id number]_[id number] Start: 04-27-2017 Stem Accolade Ii 7 127d Femoral - [id number] Start: 11-08-2019 Shell Trident Ii 56mm F Tritanium Acetabular 5 Screw Hole Cluster Sterile - [id number] Start: 11-08-2019 Stem Accolade Ii 7 127d Femoral - [id number] Start: 05-03-2020 Shell Trident Ii 56mm F Tritanium Acetabular 5 Screw Hole Cluster Sterile - [id number]_imp Start: 05-03-2020 Lead 50cm Nevro - [id number] Start: 05-08-2016 Comment on above: Description: 50 Lead 50cm Nevro - [id number]_imp Start: 06-05-2016 Comment on above: Description: NEVRO B LUE PERC LEAD KIT Lead 50cm Nevro - [id number]_imp Start: 06-05-2016 Comment on above: Description: NEVRO B LUE PERC LEAD KIT Gnrtr Nrstm Ipg Kit Nevro - [id number]_imp Start: 06-05-2016 Comment on above: Description: NEVRO N IPG KIT Screw Spinal Streamline 7.5x55mm - [id number] Start: 02-07-2022 Set Scr Spnl Ti Streamline - [id number] Start: 02-07-2022 Screw Spnl L45mm Dia7.5mm Thorlum Ti Ally Polyax Streamline - [id number] Start: 02-07-2022 Screw Spnl L50mm Dia7.5mm Thorlum Ti Ally Polyax Streamline - [id number] Start: 02-07-2022 Ta Spnl L120mm Sxm91dy Thorlum Prebent Streamline - [id number] Start: 02-07-2022 Ta Spnl L100mm Mgi56ct Thorlum Prebent Streamline - [id number]_imp Start: 02-07-2022 Functional Status Date Assessment Result Facility 03-20-2023 Functional Status N/A [facility] 02-20-2023 Functional Status N/A [facility] 01-30-2023 Functional Status N/A [facility] Clinical Notes 06-07-2012 to 10-05-2023 Note Date & Type Note Facility 10-05-2023 Evaluation note Encounter Date Diagnosis Assessment Notes Sep, Arthritis (ICD-10 - M19.90) [facility] Other 11-29-2023 Evaluation note* Encounter Date Diagnosis Assessment Notes Treatment Notes Treatment Clinical Notes Aug, Anxiety (ICD-10 - F41.9) Aug, Neuropathy (ICD-10 - G62.9) [facility] Other 11-28-2023 Evaluation note* Encounter Date Diagnosis Assessment Notes Treatment Notes Treatment Clinical Notes Aug, Diabetic nephropathy (ICD-10 - E11.21) [facility] Other 11-15-2023 Evaluation note* Encounter Date Diagnosis Assessment Notes Treatment Notes Treatment Clinical Notes Aug, Acute diarrhea (ICD-10 - R19.7) Stool studies were ordered for patient and thankfully these were all negative for him. He states that he has mucousy watery stool off and on since his hospital stay. Aug, Infection and inflammatory reaction due to indwelling urethral catheter, sequela (ICD-10 - T83.511S) Aug, Pseudomonas (aeruginosa) (mallei) (pseudomallei) as the cause of diseases classified elsewhere (ICD-10 - B96.5) Patient treated with IV antibiotics due to allergies and bacteria. I strongly encouraged him to follow up with urologist as scheduled and would recommend that he discuss recent UTI with Dr. Ibarra. Aug, Chronic pain syndrom e (ICD-10 - G89.4) Patient continues to use tramadol on occasion. Aug, Iron deficiency anemia (ICD-10 - D50.9) Labs ordered to recheck hemoglobin Aug, Diabetic nephropathy (ICD-10 - E11.21) Reviewed patients most recent vascular consult, pt states that his neuropathy is unchanged. Aug, Dysfunction of both eustachian tubes (ICD-10 - H69.93) Upon examination he does not have any wax build up. Discussed at length with him that he likely has a eustacian tube dysfunction causing the tinnitus and pain. Auto insufflation recommended and educated on how to do. Medrol dose pack and flonase provided. Encouraged him to call with an update or if he does not feel better. Aug, Hyperlipidemia (ICD-10 - E78.5) Labs ordered Aug, Diabetes (ICD-10 - E11.9) Aug, Neck pain (ICD-10 - M54.2) Patient complains of neck pain among other joints. Discussed medrol should help with this as well. [facility] Other 11-07-2023 Evaluation note* Encounter Date Diagnosis Assessment Notes Treatment Notes Treatment Clinical Notes Aug, UTI (urinary tract infection) (ICD-10 - N39.0) Aug, Diarrhea (ICD-10 - R19.7) [facility] Other 09-15-2023 Evaluation note* Encounter Date Diagnosis Assessment Notes Treatment Notes Treatment Clinical Notes Jun, Arthritis (ICD-10 - M19.90) [facility] Other 08-08-2023 Evaluation note* Encounter Date Diagnosis Assessment Notes Treatment Notes Treatment Clinical Notes May, Parkinson disease (ICD-10 - G20) May, Constipation (ICD-10 - K59.00) [facility] Other 08-01-2023 Evaluation note* Encounter Date Diagnosis Assessment Notes Treatment Notes Treatment Clinical Notes May, Restless leg syndrome (ICD-10 - G25.81) May, Anxiety (ICD-10 - F41.9) May, Parkinson disease (ICD-10 - G20) Continue following with Dr. Bowden and treatment plan May, Autonomic dysfunction (ICD-10 - G90.9) Continue with medications as prescribed. Again his florinef was increased. May, Orthostatic hypotension (ICD-10 - I95.1) Blood pressure is very low today. He is slightly symptomatic, states that he has had a busy day with his and is exhausted and due for a rest . I encouraged him to do so and continue with meds as prescribed as it appears his blood pressure has been generally better. May, Diabetic nephropathy (ICD-10 - E11.21) Continue with lyrica, requip and pain medication. May, History of COVID-19 (ICD-10 - Z86.16) Patient doing well considering his recent history of covid pneumonia/sepsis and significant deconditioning related to immobility. He gained encough strength back during his rehabilitation that he is now able to toilet himself and get in and out of bed/chairs. May, Failed back syndrome (ICD-10 - M96.1) Patient has been recieving pain medicaton through hospice and during his hospitalization. He voices a lot of increased but chronic joint pain, back pain and neuropathic pain. Previously taking oxycodone. He requested pain medication and we discssed this at length as I do not want him to become consitpated and or addicted. He understands the risks, will provide him with a trial of tramadol. If this works he can call next month for a refill. [place] report ran and reviewed. May, Neurogenic bladder (ICD-10 - N31.9) Encouraged patient to follow up with Dr. Ibarra as schedued. May, Neurogenic bowel (ICD-10 - K59.2) Patient encouraged to continue with his toilet schedule. Discussed my concerns with narcotic induced constipation and he verbalized understanding. [facility] Other 07-10-2023 Evaluation note* Encounter Date Diagnosis Assessment Notes Treatment Notes Treatment Clinical Notes Apr, Hypotestosteronism (ICD-10 - E34.9) [facility] Other 06-02-2023 Hospital Discharge instructions Patient Education 03/20/2023 09:43:15 Suprapubic Catheter Home Guide Suprapubic Catheter Home Guide A suprapubic catheter is a flexible tube that is used to drain urine from the bladder into a collection bag outside the body. The catheter is inserted into the bladder through a small opening in the lower abdomen, above the pubic bone (suprapubic area) and a few inches below your belly button (navel). A tiny balloon filled with germ-free (sterile) water helps to keep the catheter in place. The collection bag must be emptied at least once a day and cleaned at least every other day. The collection bag can be put beside your bed at night and attached to your leg during the day. You may have a large collection bag to use at night and a smaller one to use during the day. Your suprapubic catheter may need to be changed every 4 6 weeks, or as often as recommended by yourhealth care provider. Healing of the tract where the catheter is placed can take 6 weeks to 6 months. During that time, your health care provider may change your catheter. Once the tract is well healed, you or a caregiver will change your suprapubic catheter at home. What are the risks? This catheter is safe to use. However, problems can occur, including: Blocked urine flow. This can occur if the catheter stops working, or if you have a blood clot in your bladder or in the catheter. Irritation of the skin around the catheter. Infection. This can happen if bacteria gets into your bladder. Supplies needed: Two pairs of sterile gloves. Paper towels. Catheter. Two syringes. Sterile water. Sterile cleaning solution. Lubricant. Collection bags. How to change the catheter 1.Drink plenty of fluids during the hours before you change the catheter. 2.Wash your hands with soap and water. If soap and water are not available, use hand coil winding machines set up mechanic. 3.Draw up sterile water into a syringe to have ready to fill the new catheter balloon. The amount will depend on the size of the balloon. 4.Have all of your supplies ready and close to you on a paper towel. 5.Lie on your back, sitting slightly upright so that you can see the catheter and opening. 6.Put on sterile gloves. 7.Clean the skin around the catheter opening using the sterile cleaning solution. 8.Remove the water from the balloon in the catheter using a syringe. 9.Slowly remove the catheter. If the catheter seems stuck, or if you have difficulty removing it: Do not pull on it. Call your health care provider right away. 10.Place the old catheter on a paper towel to discard later. 11.Take off the used gloves, and put on a new pair. 12.Put lubricant on the end of the new catheter that will go into your bladder. 13.Clean the skin around the catheter opening using the sterile cleaning solution. 14.Gently slide the catheter through the opening in your abdomen and into the tract that leads to your bladder. 15.Wait for some urine to start flowing through the catheter. 16.When urine starts to flow through the catheter, attach the collection bag to the end of the catheter. Make sure the connection is tight. 17.Use a syringe to fill the catheter balloon with sterile water. Fill to the amount directed by your health care provider. 18.Remove the gloves and wash your hands with soap and water. How to care for the skin around the catheter Follow your health care provider's instructions on caring for your skin. Use a clean washcloth and soapy water to clean the skin around your catheter every day. Pat the area dry with a clean paper towel. Do not pull on the catheter. Do not use ointment or lotion on this area, unless told by your health care provider. Check the skin around the catheter every day for signs of infection. Check for: ?Redness, swelling, or pain. ?Fluid or blood. ?Warmth. ?Pus or a bad smell. How to empty and clean the collection bag Empty the large collection bag every 8 hours. Empty the small collection bag when it is about ? full. Clean the collection bag every 2 3 days, or as often as told by your health care provider. To do this: 1.Wash your hands with soap and water. If soap and water are not available, use hand coil winding machines set up mechanic. 2.Disconnect the bag from the catheter and immediately attach a new bag to the catheter. 3.Hold the used bag over the toilet or another container. 4.Turn the valve (spigot) at the bottom of the bag to empty the urine. Empty the used bag completely. Do not touch the opening of the spigot. Do not let the opening touch the toilet or container. 5.Close the spigot tightly when the bag is empty. 6.Clean the used bag in one of the following methods: According to the feltmaker's instructions. As told by your health care provider. 7.Let the bag dry completely. Put it in a clean plastic bag before storing it. General tips Always wash your hands before and after caring for your catheter and collection bag. Use a mild, fragrance-free soap. If soap and water are not available, use hand coil winding machines set up mechanic. Clean the outside of the catheter with soap and water as often as told by your health care provider. Always make sure there are no twists or kinks in the catheter tube. Always make sure there are no leaks in the catheter or collection bag. Always wear the leg bag below your knee. Make sure the overnight drainage bag is always lower than the level of your bladder, but do not letit touch the floor. Before you go to sleep, hang the bag inside a wastebasket that is covered by a clean plastic bag. Drink enough fluid to keep your urine pale yellow. Do not take baths, swim, or use a hot tub until your health care provider approves. Ask your healthcare provider if you may take showers. Contact a phillip care provider if: You leak urine. You have redness, swelling, or pain around your catheter. You have fluid or blood coming from your catheter opening. Your catheter opening feels warm to the touch. You have pus or a bad smell coming from your catheter opening. You have a fever or chills. Your urine flow slows down. Your urine becomes cloudy or smelly. Get help right away if: Your catheter comes out. You have: ?Nausea. ?Back pain. ?Difficulty changing your catheter. ?Blood in your urine. ?No urine flow for 1 hour. Summary A suprapubic catheter is a flexible tube that is used to drain urine from the bladder into a collection bag outside the body. Your suprapubic catheter may need to be changed every 4 6 weeks, or as recommended by your health care provider. Follow instructions on how to change the catheter and how to empty and clean the collection bag. Always wash your hands before and after caring for your catheter and collection bag. Drink enough fluid to keep your urine pale yellow. Get help right away if you have difficulty changing your catheter or if there is blood in your urine. This information is not intended to replace advice given to you by your health care provider. Make sure you discuss any questions you have with your health care provider. Document Revised: 12/13/2020 Document Reviewed: 11/09/2019 Elsevier Patient Education 2022 [employer] Access. Follow Up Care 02/20/2023 10:24:17 With:WALTER YBARRA, Fidel Hinkle, URL Address: [facility] [address], [place] [address]- When: Unknown [facility] Lori 05-05-2023 Hospital Discharge instructions Patient Education 02/20/2023 10:21:00 Acute Urinary Retention, Male Acute Urinary Retention, Male Acute urinary retention is a condition in which a person is unable to pass urine or can only pass alittle urine. This condition can happen suddenly and last for a short time. If left untreated, it can become long-term (chronic) and result in kidney damage or other serious complications. What are the causes? This condition may be caused by: Obstruction or narrowing of the tube that drains the bladder (urethra). This may be caused by surgery, problems with nearby organs, or injury to the bladder or urethra. Problems with the nerves in the bladder. Tumors in the area of the pelvis, bladder, or urethra. Certain medicines. Bladder or urinary tract infection. Constipation. What increases the risk? This condition is more likely to develop in older men. As men age, their prostate may become largerand may start to press or squeeze on the bladder or the urethra. Other chronic health conditions can increase the risk of acute urinary retention. These include: Diseases such as multiple sclerosis. Spinal cord injuries. Diabetes. Degenerative cognitive conditions, such as delirium or dementia. Psychological conditions. A man may hold his urine due to trauma or because he does not want to usethe bathroom. What are the signs or symptoms? Symptoms of this condition include: Trouble urinating. Pain in the lower abdomen. How is this diagnosed? This condition is diagnosed based on a physical exam and your medical history. You may also have other tests, including: An ultrasound of the bladder or kidneys or both. Blood tests. A urine analysis. Additional tests may be needed, such as a CT scan, MRI, and kidney or bladder function tests. How is this treated? Treatment for this condition may include: Medicines. Placing a thin, sterile tube (catheter) into the bladder to drain urine out of the body. This is called an indwelling urinary catheter. After it is inserted, the catheter is held in place with a small balloon that is filled with sterile water. Urine drains from the catheter into a collection bag outside of the body. Behavioral therapy. Treatment for other conditions. If needed, you may be treated in the hospital for kidney function problems or to manage other complications. Follow these instructions at home: Medicines Take [id number] and prescription medicines only as told by your health care provider. Avoid certain medicines, such as decongestants, antihistamines, and some prescription medicines. Do not take any medicine unless your health care provider approves. If you were prescribed an antibiotic medicine, take it as told by your health care provider. Do notstop using the antibiotic even if you start to feel better. General instructions Do not use any products that contain nicotine or tobacco. These products include cigarettes, chewing tobacco, and vaping devices, such as e-cigarettes. If you need help quitting, ask your health careprovider. Drink enough fluid to keep your urine pale yellow. If you have an indwelling urinary catheter, follow the instructions from your health care provider. Monitor any changes in your symptoms. Tell your health care provider about any changes. If instructed, monitor your blood pressure at home. Report changes as told by your health care provider. Keep all follow-up visits. This is important. Contact a health care provider if: You have uncomfortable bladder contractions that you cannot control (spasms). You leak urine with the spasms. Get help right away if: You have chills or a fever. You have blood in your urine. You have a catheter and the following happens: ?Your catheter stops draining urine. ?Your catheter falls out. Summary Acute urinary retention is a condition in which a person is unable to pass urine or can only pass alittle urine. If left untreated, this condition can result in kidney damage or other serious complications. An enlarged prostate may cause this condition. As men age, their prostate gland may become larger and may press or squeeze on the bladder or the urethra. Treatment for this condition may include medicines and placement of an indwelling urinary catheter. Monitor any changes in your symptoms. Tell your health care provider about any changes. This information is not intended to replace advice given to you by your health care provider. Make sure you discuss any questions you have with your health care provider. Document Revised: 06/26/2021 Document Reviewed: 06/26/2021 [employer] Patient Education 2022 [employer] Access. Follow Up Care 01/16/2023 11:27:11 With:WALTER YBARRA, Fidel Hinkle, URL Address: [address] [place] [address]- When: Unknown [facility] Lori 04-14-2023 Hospital Discharge instructions Patient Education 01/30/2023 12:14:20 Benign Prostatic Hyperplasia Benign Prostatic Hyperplasia Benign prostatic hyperplasia (BPH) is an enlarged prostate gland that is caused by the normal agingprocess and not by cancer. The prostate is a walnut-sized gland that is involved in the production of semen. It is located in front of the rectum and below the bladder. The bladder stores urine and the urethra is the tube that carries the urine out of the body. The prostate may get bigger as a man gets older. An enlarged prostate can press on the urethra. This can make it harder to pass urine. The build-up of urine in the bladder can cause infection. Back pressure and infection may progress to bladder damage and kidney (renal) failure. What are the causes? This condition is part of a normal aging process. However, not all men develop problems from this condition. If the prostate enlarges away from the urethra, urine flow will not be blocked. If it enlarges toward the urethra and compresses it, there will be problems passing urine. What increases the risk? This condition is more likely to develop in men over the age of 50 years. What are the signs or symptoms? Symptoms of this condition include: Getting up often during the night to urinate. Needing to urinate frequently during the day. Difficulty starting urine flow. Decrease in size and strength of your urine stream. Leaking (dribbling) after urinating. Inability to pass urine. This needs immediate treatment. Inability to completely empty your bladder. Pain when you pass urine. This is more common if there is also an infection. Urinary tract infection (UTI). How is this diagnosed? This condition is diagnosed based on your medical history, a physical exam, and your symptoms. Tests will also be done, such as: A post-void bladder scan. This measures any amount of urine that may remain in your bladder after you finish urinating. A digital rectal exam. In a rectal exam, your health care provider checks your prostate by putting a lubricated, gloved finger into your rectum to feel the back of your prostate gland. This exam detects the size of your gland and any abnormal lumps or growths. An exam of your urine (urinalysis). A prostate specific antigen (PSA) screening. This is a blood test used to screen for prostate cancer. An ultrasound. This test uses sound waves to electronically produce a picture of your prostate gland. Your health care provider may refer you to a specialist in kidney and prostate diseases (urologist). How is this treated? Once symptoms begin, your health care provider will monitor your condition (active surveillance or watchful waiting). Treatment for this condition will depend on the severity of your condition. Treatment may include: Observation and yearly exams. This may be the only treatment needed if your condition and symptoms are mild. Medicines to relieve your symptoms, including: ?Medicines to shrink the prostate. ?Medicines to relax the muscle of the prostate. Surgery in severe cases. Surgery may include: ?Prostatectomy. In this procedure, the prostate tissue is removed completely through an open incision or with a laparoscope or robotics. ?Transurethral resection of the prostate (TURP). In this procedure, a tool is inserted through the opening at the tip of the penis (urethra). It is used to cut away tissue of the inner core of the prostate. The pieces are removed through the same opening of the penis. This removes the blockage. ?Transurethral incision (TUIP). In this procedure, small cuts are made in the prostate. This lessens the prostate's pressure on the urethra. ?Transurethral microwave thermotherapy (TUMT). This procedure uses microwaves to create heat. The heat destroys and removes a small amount of prostate tissue. ?Transurethral needle ablation (TUNA). This procedure uses radio frequencies to destroy and remove a small amount of prostate tissue. ?Interstitial laser coagulation (ILC). This procedure uses a laser to destroy and remove a small amount of prostate tissue. ?Transurethral electrovaporization (TUVP). This procedure uses electrodes to destroy and remove a small amount of prostate tissue. ?Prostatic urethral lift. This procedure inserts an implant to push the lobes of the prostate away from the urethra. Follow these instructions at home: Take pvud-gew-yhdxwtn and prescription medicines only as told by your health care provider. Monitor your symptoms for any changes. Contact your health care provider with any changes. Avoid drinking large amounts of liquid before going to bed or out in public. Avoid or reduce how much caffeine or alcohol you drink. Give yourself time when you urinate. Keep all follow-up visits as told by your health care provider. This is important. Contact a health care provider if: You have unexplained back pain. Your symptoms do not get better with treatment. You develop side effects from the medicine you are taking. Your urine becomes very dark or has a bad smell. Your lower abdomen becomes distended and you have trouble passing your urine. Get help right away if: You have a fever or chills. You suddenly cannot urinate. You feel lightheaded, or very dizzy, or you faint. There are large amounts of blood or clots in the urine. Your urinary problems become hard to manage. You develop moderate to severe low back or flank pain. The flank is the side of your body between the ribs and the hip. These symptoms may represent a serious problem that is an emergency. Do not wait to see if the symptoms will go away. Get medical help right away. Call your local emergency services (911 in the [place] Do not drive yourself to the hospital. Summary Benign prostatic hyperplasia (BPH) is an enlarged prostate that is caused by the normal aging process and not by cancer. An enlarged prostate can press on the urethra. This can make it hard to pass urine. This condition is part of a normal aging process and is more likely to develop in men over the age of 50 years. Get help right away if you suddenly cannot urinate. This information is not intended to replace advice given to you by your health care provider. Make sure you discuss any questions you have with your health care provider. Document Released: 10/05/2006 Document Revised: 08/30/2019 Document Reviewed: 11/09/2017 [employer] Patient Education 2020 [employer] 01/30/2023 07:57:19 Indwelling Urinary Catheter Care, Adult, Aznn-vz-Rbxm Indwelling Urinary Catheter Care, Adult An indwelling urinary catheter is a thin tube that is put into your bladder. The tube helps to drain pee (urine) out of your body. The tube goes in through your urethra. Your urethra is where pee comes out of your body. Your pee will come out through the catheter, then it will go into a bag (drainage bag). Take good care of your catheter so it will work well. How to wear your catheter and bag Supplies needed Sticky tape (adhesive tape) or a leg strap. Alcohol wipe or soap and water (if you use tape). A clean towel (if you use tape). Large overnight bag. Smaller bag (leg bag). Wearing your catheter Attach your catheter to your leg with tape or a leg strap. Make sure the catheter is not pulled tight. If a leg strap gets wet, take it off and put on a dry strap. If you use tape to hold the bag on your le.Use an alcohol wipe or soap and water to wash your skin where the tape made it sticky before. 2.Use a clean towel to pat-dry that skin. 3.Use new tape to make the bag stay on your leg. Wearing your bags You should have been given a large overnight bag. You may wear the overnight bag in the day or night. Always have the overnight bag lower than your bladder. Do not let the bag touch the floor. Before you go to sleep, put a clean plastic bag in a wastebasket. Then hang the overnight bag inside the wastebasket. You should also have a smaller leg bag that fits under your clothes. Always wear the leg bag below your knee. Do not wear your leg bag at night. How to care for your skin and catheter Supplies needed A clean washcloth. Water and mild soap. A clean towel. Caring for your skin and catheter Clean the skin around your catheter every day: 1.Wash your hands with soap and water. 2.Wet a clean washcloth in warm water and mild soap. 3.Clean the skin around your urethra. ?If you are female: ?Gently spread the folds of skin around your vagina (labia). ?With the washcloth in your other hand, wipe the inner side of your labia on each side. Wipe from front to back. ?If you are male: ?Pull back any skin that covers the end of your penis (foreskin). ?With the washcloth in your other hand, wipe your penis in small circles. Start wiping at the tip of your penis, then move away from the catheter. ?Move the foreskin back in place, if needed. 4.With your free hand, hold the catheter close to where it goes into your body. ?Keep holding the catheter during cleaning so it does not get pulled out. 5.With the washcloth in your other hand, clean the catheter. ?Only wipe downward on the catheter. ?Do not wipe upward toward your body. Doing this may push germs into your urethra and cause infection. 6.Use a clean towel to pat-dry the catheter and the skin around it. Make sure to wipe off all soap. 7.Wash your hands with soap and water. Shower every day. Do not take baths. Do not use cream, ointment, or lotion on the area where the catheter goes into your body, unless your doctor tells you to. Do not use powders, sprays, or lotions on your genital area. Check your skin around the catheter every day for signs of infection. Check for: ?Redness, swelling, or pain. ?Fluid or blood. ?Warmth. ?Pus or a bad smell. How to empty the bag Supplies needed Rubbing alcohol. Gauze pad or cotton ball. Tape or a leg strap. Emptying the bag Pour the pee out of your bag when it is ? full, or at least 2 3 times a day. Do this for your overnight bag and your leg bag. 1.Wash your hands with soap and water. 2.Separate (detach) the bag from your leg. 3.Hold the bag over the toilet or a clean pail. Keep the bag lower than your hips and bladder. Thisis so the pee (urine) does not go back into the tube. 4.Open the pour spout. It is at the bottom of the bag. 5.Empty the pee into the toilet or pail. Do not let the pour spout touch any surface. 6.Put rubbing alcohol on a gauze pad or cotton ball. 7.Use the gauze pad or cotton ball to clean the pour spout. 8.Close the pour spout. 9.Attach the bag to your leg with tape or a leg strap. 10.Wash your hands with soap and water. Follow instructions for cleaning the drainage bag: From the product maker. As told by your doctor. How to change the bag Supplies needed Alcohol wipes. A clean bag. Tape or a leg strap. Changing the bag Replace your bag when it starts to leak, smell bad, or look dirty. 1.Wash your hands with soap and water. 2.Separate the dirty bag from your leg. 3.Pinch the catheter with your fingers so that pee does not spill out. 4.Separate the catheter tube from the bag tube where these tubes connect (at the connection valve).Do not let the tubes touch any surface. 5.Clean the end of the catheter tube with an alcohol wipe. Use a different alcohol wipe to clean the end of the bag tube. 6.Connect the catheter tube to the tube of the clean bag. 7.Attach the clean bag to your leg with tape or a leg strap. Do not make the bag tight on your leg. 8.Wash your hands with soap and water. General rules Never pull on your catheter. Never try to take it out. Doing that can hurt you. Always wash your hands before and after you touch your catheter or bag. Use a mild, fragrance-free soap. If you do not have soap and water, use hand coil winding machines set up mechanic. Always make sure there are no twists or bends (kinks) in the catheter tube. Always make sure there are no leaks in the catheter or bag. Drink enough fluid to keep your pee pale yellow. Do not take baths, swim, or use a hot tub. If you are female, wipe from front to back after you poop (have a bowel movement). Contact a doctor if: Your pee is cloudy. Your pee smells worse than usual. Your catheter gets clogged. Your catheter leaks. Your bladder feels full. Get help right away if: You have redness, swelling, or pain where the catheter goes into your body. You have fluid, blood, pus, or a bad smell coming from the area where the catheter goes into your body. Your skin feels warm where the catheter goes into your body. You have a fever. You have pain in your: ?Belly (abdomen). ?Legs. ?Lower back. ?Bladder. You see blood in the catheter. Your pee is pink or red. You feel sick to your stomach (nauseous). You throw up (vomit). You have chills. Your pee is not draining into the bag. Your catheter gets pulled out. Summary An indwelling urinary catheter is a thin tube that is placed into the bladder to help drain pee (urine) out of the body. The catheter is placed into the part of the body that drains pee from the bladder (urethra). Taking good care of your catheter will keep it working properly and help prevent problems. Always wash your hands before and after touching your catheter or bag. Never pull on your catheter or try to take it out. This information is not intended to replace advice given to you by your health care provider. Make sure you discuss any questions you have with your health care provider. Document Released: 01/30/2014 Document Revised: 01/27/2020 Document Reviewed: 05/21/2018 [employer] Patient Education 2020 [employer]. 01/30/2023 07:56:45 Benign Prostatic Hyperplasia Benign Prostatic Hyperplasia Benign prostatic hyperplasia (BPH) is an enlarged prostate gland that is caused by the normal agingprocess and not by cancer. The prostate is a walnut-sized gland that is involved in the production of semen. It is located in front of the rectum and below the bladder. The bladder stores urine and the urethra is the tube that carries the urine out of the body. The prostate may get bigger as a man gets older. An enlarged prostate can press on the urethra. This can make it harder to pass urine. The build-up of urine in the bladder can cause infection. Back pressure and infection may progress to bladder damage and kidney (renal) failure. What are the causes? This condition is part of a normal aging process. However, not all men develop problems from this condition. If the prostate enlarges away from the urethra, urine flow will not be blocked. If it enlarges toward the urethra and compresses it, there will be problems passing urine. What increases the risk? This condition is more likely to develop in men over the age of 50 years. What are the signs or symptoms? Symptoms of this condition include: Getting up often during the night to urinate. Needing to urinate frequently during the day. Difficulty starting urine flow. Decrease in size and strength of your urine stream. Leaking (dribbling) after urinating. Inability to pass urine. This needs immediate treatment. Inability to completely empty your bladder. Pain when you pass urine. This is more common if there is also an infection. Urinary tract infection (UTI). How is this diagnosed? This condition is diagnosed based on your medical history, a physical exam, and your symptoms. Tests will also be done, such as: A post-void bladder scan. This measures any amount of urine that may remain in your bladder after you finish urinating. A digital rectal exam. In a rectal exam, your health care provider checks your prostate by putting a lubricated, gloved finger into your rectum to feel the back of your prostate gland. This exam detects the size of your gland and any abnormal lumps or growths. An exam of your urine (urinalysis). A prostate specific antigen (PSA) screening. This is a blood test used to screen for prostate cancer. An ultrasound. This test uses sound waves to electronically produce a picture of your prostate gland. Your health care provider may refer you to a specialist in kidney and prostate diseases (urologist). How is this treated? Once symptoms begin, your health care provider will monitor your condition (active surveillance or watchful waiting). Treatment for this condition will depend on the severity of your condition. Treatment may include: Observation and yearly exams. This may be the only treatment needed if your condition and symptoms are mild. Medicines to relieve your symptoms, including: ?Medicines to shrink the prostate. ?Medicines to relax the muscle of the prostate. Surgery in severe cases. Surgery may include: ?Prostatectomy. In this procedure, the prostate tissue is removed completely through an open incision or with a laparoscope or robotics. ?Transurethral resection of the prostate (TURP). In this procedure, a tool is inserted through the opening at the tip of the penis (urethra). It is used to cut away tissue of the inner core of the prostate. The pieces are removed through the same opening of the penis. This removes the blockage. ?Transurethral incision (TUIP). In this procedure, small cuts are made in the prostate. This lessens the prostate's pressure on the urethra. ?Transurethral microwave thermotherapy (TUMT). This procedure uses microwaves to create heat. The heat destroys and removes a small amount of prostate tissue. ?Transurethral needle ablation (TUNA). This procedure uses radio frequencies to destroy and remove a small amount of prostate tissue. ?Interstitial laser coagulation (ILC). This procedure uses a laser to destroy and remove a small amount of prostate tissue. ?Transurethral electrovaporization (TUVP). This procedure uses electrodes to destroy and remove a small amount of prostate tissue. ?Prostatic urethral lift. This procedure inserts an implant to push the lobes of the prostate away from the urethra. Follow these instructions at home: Take hxne-geg-pswvpem and prescription medicines only as told by your health care provider. Monitor your symptoms for any changes. Contact your health care provider with any changes. Avoid drinking large amounts of liquid before going to bed or out in public. Avoid or reduce how much caffeine or alcohol you drink. Give yourself time when you urinate. Keep all follow-up visits as told by your health care provider. This is important. Contact a health care provider if: You have unexplained back pain. Your symptoms do not get better with treatment. You develop side effects from the medicine you are taking. Your urine becomes very dark or has a bad smell. Your lower abdomen becomes distended and you have trouble passing your urine. Get help right away if: You have a fever or chills. You suddenly cannot urinate. You feel lightheaded, or very dizzy, or you faint. There are large amounts of blood or clots in the urine. Your urinary problems become hard to manage. You develop moderate to severe low back or flank pain. The flank is the side of your body between the ribs and the hip. These symptoms may represent a serious problem that is an emergency. Do not wait to see if the symptoms will go away. Get medical help right away. Call your local emergency services (911 in the [place] Do not drive yourself to the hospital. Summary Benign prostatic hyperplasia (BPH) is an enlarged prostate that is caused by the normal aging process and not by cancer. An enlarged prostate can press on the urethra. This can make it hard to pass urine. This condition is part of a normal aging process and is more likely to develop in men over the age of 50 years. Get help right away if you suddenly cannot urinate. This information is not intended to replace advice given to you by your health care provider. Make sure you discuss any questions you have with your health care provider. Document Released: 10/05/2006 Document Revised: 08/30/2019 Document Reviewed: 11/09/2017 [employer] Patient Education 2020 [employer]. Follow Up Care 01/27/2023 14:28:53 With:WALTER YBARRAFidel, URL Address: [facility] [address] [place] [id number]- [phone] When:Within 3 Week(s) Comments:3 weeks for SP tube [facility] NoteOP Note OPERATION DATE: 01/22/2023 PREOPERATIVE DIAGNOSIS: 1. Urinary retention. 2. Urinary incontinence. 3. Recurrent infections. POSTOPERATIVE DIAGNOSIS: 1. Urinary retention. 2. Urinary incontinence. 3. Recurrent infections. 4. Bladder calculus, 4 cm. ANESTHESIA: General by LMA. COMPLICATIONS: None. INDICATIONS: Mr. Correa is a 62-year-old gentleman who has chronic urinary retention with incontinence and recurrent urinary tract infections. He has had a Carrington catheter indwelling for some time now. Although this improved his retention and incontinent situation, he has still had infections and quite a bit of bother from the urethral catheter. He is desirous for a suprapubic tube. We discussed at great length the risks of the SP tube in the office. He signed an informed consent for cystoscopy and percutaneous suprapubic tube placement, after risks were explained. PROCEDURE: Patient was brought to the operating room and placed on the operating room table in the supine position. SCDs were placed on his lower extremities and turned on and functioning during the entire case. Time out was done by all parties in the room. He all agreed upon the patient's identification and the planned procedures for this patient. General anesthesia was then administered via LMA. He was then repositioned into the modified dorsolithotomy position. All pressure points were satisfactorily padded. Genitalia and abdomen were sterilely prepped and draped in the usual fashion. I started by passing a flexible cystoscope per urethra and into the bladder. The anterior urethra was rather ratty from chronic Carrington catheterization. Prostatic urethra showed moderate regrowth. Powell endoscopy in the bladder showed that the mucosa was friable on the floor. There was a large bladder calculus on the floor, about 4 cm. I then passed a 365 angstrom holmium laser fiber through the scope and made contact with the stone. Laser lithotripsy was done at 12 cohen continuously on the dusting mode. This stone was rather hard. I was able to crack it up into several pieces. I did not fully dust it. I then simply elected to remove the flexible scope and then passed a 26-Stateless resectoscope sheath into the bladder, and then I used the [employer] evacuator and was able to extract all of the bladder calculus pieces. These were sent for stone analysis. The resectoscope was then removed. I then re-passed the flexible cystoscope into the bladder and I identified the dome of the bladder. I then palpated midway between the umbilicus and the pubic bone, and this represented the dome. I then infiltrated 2% plain lidocaine in the skin in this area and created a wheal, and then infiltrated deeply to the bladder. A 15 blade scalpel was used and the 3 cm vertical incision was made over the wheal. A hemostat was used to bluntly dissect down to the bladder. The scope was then removed. I then passed the Lowsley retractor through the urethra, into the bladder and then angled it up to the dome of the bladder and then used the Bovie cautery to cut down right to the Lowsley. I was then able to bring the Lowsley out of the incision. I then grasped a 24-Stateless two way Carrington catheter in the jaws and then pulled the catheter into the bladder. The jaws were released and the Lowsley was removed. 20 cc of fluid was placed in the balloon. I irrigated the catheter with a Marely syringe to verify good placement. I then re-passed the flexible cystoscope in the bladder and evaluated the insertion site. It looked excellent. There was no bleeding. The scope was then removed. I then used the Bovie cautery to coagulate small bleeding through the suprapubic incision. 3-0 Vicryl was used in an interrupted fashion to close the subcu. 4-0 nylon was used in an interrupted fashion to close the skin. The SP tube was taped in a curvilinear fashion on the abdomen, and it drained into a leg bag. He was then transferred to a gurney bed and wheeled to recovery room after sterile dressing was placed over the incision. He will be discharged to home later today. He will continue his daily Augmentin. Follow up will be in four weeks to change his SP tube in the office.[id number] NoteEXAMINATION: XR CHEST 2 V, 01/20/2023 11:23 AM EDT HISTORY: Pre-surgery evaluation COMPARISON: 11/08/2022 TECHNIQUE: Chest x-ray: Two views. FINDINGS: Stable left lower lobe subsegmental atelectasis versus infiltrate. Stable elevation of the left hemidiaphragm. Borderline heart size. Left shoulder arthroplasty. Degenerative changes of the right glenohumeral joint. Spinal stimulator leads project over the mid thoracic spine. IMPRESSION: Stable left lower lobe subsegmental atelectasis versus infiltrate and elevation of the left hemidiaphragm. Electronically authenticated by: SHARRON BENITEZ Date: 2023-01-20 12:49[facility] Evaluation note* Encounter Date Diagnosis Assessment Notes Treatment Notes Treatment Clinical Notes Dec, Neuropathy (ICD-10 - G62.9) Vee24 Other [id number] NoteHNO ID: [id number] Author: Say Reyes APRN.NOC ANALYST Service: ? Author Type: Nurse Practitioner Type: Progress Notes Filed: 12/24/2022 5:59 PM Note Text: The patient did not show up for this appointment.[id number] History of Present illness Narrative* Say Reyes APRN.NOC ANALYST - 12/24/2022 11:30 AM EST The patient did not show up for this appointment. documented in [facility] encounterTri[facility]23 Miscellaneous Notes * Telephone Encounter - Zelda Saenz RN - 12/06/2022 1:15 PM EST [facility] pharmacist, Macrina, requests to clarify pt.'s proamatine dose as she received several prescriptions strengths for it for pt today per Dr Breann Hanks and also requests to inform Dr. Hanks there is no dilaudid in stock for pt, but will obtain Dilaudid in stock on Thursday. I forwarded pharmacistscall to Dr. Breann Hanks for further instruction and clarification of pt.'s prescriptions. Dr. Hanks states pt is still hospitalized, but will be d/c'ed from [facility] later today. [facility] Note [facility] 12-01-20[facility]10[facility]2023 Note [facility]23 NoteHNO ID: [id number] Author: Antonia Villa RN Service: ? Author Type: Registered Nurse Type: Nursing Progress Note Filed: 11/26/2022 10:03 AM Note Text: Transfer Note: Patient transferred in stable condition. Actions taken: Report given/called to G61 RN.[facility]02-08-[facility]23 [facility]2023 [facility]20[facility]05-2023 Note [facility]04[facility]20[facility] 11-20-2022 [facility]30[facility]23 Evaluation note* Encounter Date Diagnosis Assessment Notes Treatment Notes Treatment Clinical Notes Oct, Orthostatic hypotension (ICD-10 - I95.1) [facility] Other 01-24-2023 Evaluation note* Encounter Date Diagnosis Assessment Notes Treatment Notes Treatment Clinical Notes Oct, Pneumonia of left lung due to infectious organism, unspecified part of lung (ICD-10 - J18.9) Patient continues to be very weak and fatigued secondary to recent pneumonia. He is to continue with antibiotics, and I encouraged him to start breathing treatments at home. He has a nebulzer but has not been using it therefore I provided him with tubing and will refill his albuterol. He is to obtain labs and chest xray by the end of the week. Oct, Orthostatic hypotension (ICD-10 - I95.1) Patient is very hypotensive today in office. He reports he is taking 15mg of mididrine three times a day. His blood pressure was checked several times. He is symptomatic with dizziness and fatigue. [facility] was contacted and will attempt to schedule him an appointment DIMITRY Oct, Central spinal stenosis (ICD-10 - M48.00) Moderate central stenosis is noted on his recent ct scans and mylegrams, which are more than likely causing his neurological issues / loss of bowel/bladder. He is scheduled to see neurosurgeon Dr. Oden in the next few weeks which had to be rescheduled due to recent pneumonia. We discussed this at length. Oct, Parkinsons disease (ICD-10 - G20) Oct, Diabetes (ICD-10 - E11.9) Oct, Other Patient appe ars very weak today, more so than previous visits. He is not driving at thie time, his accompanies him today due to his weakness. Strongly advised back to the ER with any worsening sympoms. We did attempt to call his institutional asset manager however nursing staff will need to discuss with Dr. Teran and they have advised that they will call both us and the patient back with an appt and recommendations due to his significant hypotention. [facility] Other 11-15-2022 Evaluation note* Encounter Date Diagnosis Assessment Notes Treatment Notes Treatment Clinical Notes Aug, Urinary bladder incontinence (ICD-10 - R32) Aug, Parkinson disease (ICD-10 - G20) Encouraged patient to continue following with Dr. Bowden as scheduled. Aug, Full incontinence of feces (ICD-10 - R15.9) Aug, S/P lumbar fusion (ICD-10 - Z98.1) Stongly suspect that patients loss of bowel/bladder control is neurological likely related to his spine and multiple spine surguries. He has not discussed with his surgeon Dr. Wu therefore this office call and disuss options and ask for guidance with this issue. Aug, Orthostatic hypotension (ICD-10 - I95.1) Continue with midodrine, compression stockings and getting up slowly from seated position. Appears that this condition started during his post op spine surgery in January. He has been evaluated by cardiology. Aug, Benign prostatic hyperplasia with lower urinary tract symptoms (ICD-10 - N40.1) Dicsussed with patient that flomax may be contributing to his conditions, ie; blood pressure and incontinence. We will however will discuss with his neurosurgeon and determine further evaluation. Aug, Hyperlipidemia (ICD-10 - E78.5) Aug, Hyperglycemia (ICD-1 0 - R73.9) Aug, Needs flu shot (ICD-10 - Z23) [facility] Other 11-11-2022 Evaluation note* Encounter Date Diagnosis Assessment Notes Treatment Notes Treatment Clinical Notes Aug, Benign prostatic hyperplasia with lower urinary tract symptoms, symptom details unspecified (ICD-10 - N40.1) [facility] Other 11-10-2022 Evaluation note* Encounter Date Diagnosis Assessment Notes Treatment Notes Treatment Clinical Notes Aug, Benign prostatic hyperplasia with lower urinary tract symptoms, symptom details unspecified (ICD-10 - N40.1) [facility] Other 08-30-2022 Evaluation note* Encounter Date Diagnosis Assessment Notes Treatment Notes Treatment Clinical Notes May, Neuropathy (ICD-10 - G62.9) [facility] Other 08-03-2022 Evaluation note* Encounter Date Diagnosis Assessment Notes Treatment Notes Treatment Clinical Notes May, History of kidney stones (ICD-10 - Z87.442) May, Nausea (ICD-10 - R11.0) May, Diabetes (ICD-10 - E11.9) May, Constipation (ICD-10 - K59.00) May, Neuropathy (ICD-10 - G62.9) May, Arthritis (ICD-10 - M19.90) May, Hyperlipidemia (ICD-10 - E78.5) May, Benign prostatic hyperplasia with lower urinary tract symptoms, symptom details unspecified (ICD-10 - N40.1) May, Parkinsonism (ICD-10 - G20) [facility] Other 06-07-2022 Evaluation note* Encounter Date Diagnosis Assessment Notes Treatment Notes Treatment Clinical Notes Mar, Hypotension (ICD-10 - I95.9) [facility] Other 05-03-2022 History of Present illness Narrative* Nevaeh Oviedo RN - 02/18/2022 12:15 PM EDT Discharged with [facility] per cart to residential with AVS and scripts. * Nevaeh Oviedo RN - 02/18/2022 11:00 AM EDT Report called to [facility]. All Questions answered. Phone number given if any further questions arise. * Evelina Parra MD - 02/18/2022 10:09 AM EDT INTERNAL MEDICINE Progress Note 02/18/2022 10:09 AM Subjective: Admit Date: 02/07/2022 PCP: ELLEN CRABTREE DO Interval History: No new c/o Tremors stable on sinemet tolerating midodrine for low bp-chronic, Objective: Vitals: BP (!) 91/55 Pulse 75 Temp 97.9 F (36.6 C) (Oral) Resp 18 Ht 5' 10 (1.778 m) Wt 240 lb (108.9 kg) SpO2 97% BMI 34.44 kg/m General appearance: alert and cooperative with exam HEENT: atraumatic Neck: no JVD Lungs: clear to auscultation bilaterally Heart: S1, S2 normal Abdomen: soft, non-tender; bowel sounds normal; no masses, no organomegaly Extremities: no edema, Neurologic: Alert, oriented, thought content appropriate Medications: Scheduled Meds: carbidopa-levodopa 1 tablet Oral TID carbidopa-levodopa 2 tablet Oral BID midodrine 15 mg Oral TID WC [Held by provider] acarbose 25 mg Oral TID WC atorvastatin 10 mg Oral Nightly mometasone-formoterol 2 puff Inhalation BID DULoxetine 60 mg Oral Nightly metFORMIN 500 mg Oral BID WC pantoprazole 40 mg Oral Daily QUEtiapine 25 mg Oral Nightly topiramate 100 mg Oral Daily sodium chloride flush 5-40 mL IntraVENous 2 times per day polyethylene glycol 17 g Oral Daily bisacodyl 5 mg Oral Daily sennosides-docusate sodium 1 tablet Oral BID carbidopa-levodopa 1 tablet Oral 4x Daily And carbidopa-levodopa 2 tablet Oral BID insulin lispro 0-6 Units SubCUTAneous TID WC insulin lispro 0-3 Units SubCUTAneous Nightly tolterodine 4 mg Oral Daily pregabalin 300 mg Oral BID ezetimibe 10 mg Oral Nightly Continuous Infusions: dextrose sodium chloride Lab Results: CBC: Recent Labs 02/15/22 1253 WBC 4.3* HGB 9.5* PLT 159 BMP: Recent Labs 02/15/22 1253 NA 138 K 3.9 CL 105 CO2 25 BUN 19 CREATININE 1.0 GLUCOSE 101 HgBA1c: Lab Results Component Value Date LABA1C 5.3 01/23/2022 Ref. Range 02/09/2022 05:50 02/09/2022 11:55 02/09/2022 12:28 02/09/2022 13:30 CORTISOL Latest Units: ug/dL 4.35 7.85 15.55 21.14 Cortisol Collection Info Unknown AM Specimen Baseline 30 Minute 60 Minute Assessment and Plan: 1. L2-S1 degenerative disc disease with neuroforaminal stenosis s/p L2-S1 decompression and fusion with L4-S1 revision decompression -cont post op care, PT/OT 2. HLD 3. DM2 4. COPD 5. Acute resp failure postop, cont O2 prn, 6. YOLA, on home CPAP 7. Thrombocytopenia -improved 8. Parkinson's dx, on sinemet 9. Chronic + Post op hypotension -cont midodrine Stable for dc to snf Cont meds as above. Evelina Parra MD, MD * Don Singh PA-C - 02/18/2022 7:20 AM EDT Department of Orthopedic Surgery Spine Service Attending Progress Note Subjective: POD#11 Pt doing well laying in bed. No new issues Vitals VITALS: BP 104/62 Pulse 62 Temp 98.1 F (36.7 C) (Oral) Resp 18 Ht 5' 10 (1.778 m) Wt 240lb (108.9 kg) SpO2 97% BMI 34.44 kg/m 24HR INTAKE/OUTPUT: Intake/Output Summary (Last 24 hours) at 02/18/2022 0720 Last data filed at 02/18/2022 0533 Gross per 24 hour Intake 100 ml Output 3150 ml Net -3050 ml URINARY CATHETER OUTPUT (Carrington): [REMOVED] Urinary Catheter-Output (mL): 250 mL External Urinary Catheter-Output (mL): 1200 mL Urinary Catheter-Output (mL): 1200 mL DRAIN/TUBE OUTPUT: [REMOVED] Closed/Suction Drain Left Accordion-Output (ml): 20 ml [REMOVED] Closed/Suction Drain Right Accordion-Output (ml): 20 ml PHYSICAL EXAM: Orientation: alert and oriented to person, place and time Incision: dressing in place, clean, dry, intact Lower Extremity Motor : extensor hallucis longus, dorsiflexion, plantarflexion 4-5/5 bilaterally Lower Extremity Sensory: Intact L1-S1 Calves soft, no TTP Flatus: positive ABNORMAL EXAM FINDINGS: none LABS: HgB: Lab Results Component Value Date HGB 9.5 02/15/2022 ASSESSMENT AND PLAN: Post operative day 11 status post L2-S1 decompression and fusion with L4-S1 revision decompression 1: Monitor labs. 2: Activity Level: As tolerated 3: Pain Control: good 4: Discharge Planning: Today to Rehab Don Singh PA-C * Evelina Parra MD - 02/17/2022 6:55 PM EDT INTERNAL MEDICINE Progress Note 02/17/2022 6:55 PM Subjective: Admit Date: 02/07/2022 PCP: ELLEN CRABTREE, DO Interval History: Doing well Tremors, on sinemet on midodrine for low bp-chronic, Objective: Vitals: BP 105/66 Pulse 62 Temp 98.2 F (36.8 C) (Oral) Resp 18 Ht 5' 10 (1.778 m) Wt 240lb (108.9 kg) SpO2 94% BMI 34.44 kg/m General appearance: alert and cooperative with exam HEENT: atraumatic Neck: no JVD Lungs: clear to auscultation bilaterally Heart: S1, S2 normal Abdomen: soft, non-tender; bowel sounds normal; no masses, no organomegaly Extremities: Trace edema, Neurologic: Alert, oriented, thought content appropriate Medications: Scheduled Meds: carbidopa-levodopa 1 tablet Oral TID carbidopa-levodopa 2 tablet Oral BID midodrine 15 mg Oral TID WC [Held by provider] acarbose 25 mg Oral TID WC atorvastatin 10 mg Oral Nightly mometasone-formoterol 2 puff Inhalation BID DULoxetine 60 mg Oral Nightly metFORMIN 500 mg Oral BID WC pantoprazole 40 mg Oral Daily QUEtiapine 25 mg Oral Nightly topiramate 100 mg Oral Daily sodium chloride flush 5-40 mL IntraVENous 2 times per day polyethylene glycol 17 g Oral Daily bisacodyl 5 mg Oral Daily sennosides-docusate sodium 1 tablet Oral BID carbidopa-levodopa 1 tablet Oral 4x Daily And carbidopa-levodopa 2 tablet Oral BID insulin lispro 0-6 Units SubCUTAneous TID WC insulin lispro 0-3 Units SubCUTAneous Nightly tolterodine 4 mg Oral Daily pregabalin 300 mg Oral BID ezetimibe 10 mg Oral Nightly Continuous Infusions: dextrose sodium chloride Lab Results: CBC: Recent Labs 02/15/22 1253 WBC 4.3* HGB 9.5* PLT 159 BMP: Recent Labs 02/15/22 1253 NA 138 K 3.9 CL 105 CO2 25 BUN 19 CREATININE 1.0 GLUCOSE 101 HgBA1c: Lab Results Component Value Date LABA1C 5.3 01/23/2022 Ref. Range 02/09/2022 05:50 02/09/2022 11:55 02/09/2022 12:28 02/09/2022 13:30 CORTISOL Latest Units: ug/dL 4.35 7.85 15.55 21.14 Cortisol Collection Info Unknown AM Specimen Baseline 30 Minute 60 Minute Assessment and Plan: 1. L2-S1 degenerative disc disease with neuroforaminal stenosis s/p L2-S1 decompression and fusion with L4-S1 revision decompression -cont post op care, PT/OT 2. HLD 3. DM2 4. COPD 5. Acute resp failure postop, cont O2 prn, 6. YOLA, on home CPAP 7. Thrombocytopenia -improved 8. Parkinson's dx, on sinemet 9. Chronic + Post op hypotension -cont midodrine Awaiting dc to snf. Cont meds as above. Evelina Parra MD, MD * HOLLY Morejon - 02/17/2022 10:02 AM EDT [facility] [place] ORTHOPEDICS Occupational Therapy Daily Note Time: Time In: 923 Time Out: 1001 Timed Code Treatment Minutes: 38 Minutes Minutes: 38 Date: 02/17/2022 Patient Name: Alisia Correa, Gender: male Room: [facility]12/012-A : 1960 (61 y.o.) Referring Practitioner: Maki Reed PA-C Diagnosis: Lumbar stenosis with neurogenic claudication Additional Pertinent Hx: Per HPI: The patient is a 61 y.o. male who presents with above chief complaint. Constant stabbing pain in the low back that radiates down the posterior legs to the feet andtoes. Pt also c/o intermittent shooting pains down the legs posteriorly. He c/o numbness throughoutbilateral legs with tingling in b/l feet. He has had multiple neck and back surgeries and has a spin al cord stimulator. 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 Symptoms have been progressively worsening. Current VAS score 7/10. 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 He states incontinence has been progressively worsening over the last 6 months or so, now occurring with saddle anesthesia/complete loss of sensation during urinationand bowel movements. Percentage noriega, pt's pain occurs 50% in the back and 50% in the legs. As it pe rtains to the legs 50% right and 50% left. Pt is s/p L2-S1 DECOMPRESSION L2-S1 POSTERIOR FUSION WITH ILIAC BOLTS, L5-S1 TLIF by Dr. Loza. Restrictions/Precautions: Restrictions/Precautions: General Precautions,Fall Risk Required Braces or Orthoses Spinal: Lumbar Corset Other: Abdominal Binder Position Activity Restriction Spinal Precautions: No Bending,No Lifting,No Twisting Other position/activity restrictions: hx PD; monitor BP SUBJECTIVE: RN okayed OT session. Pt. In bed supine agreeable to participate. Pt. With low BP, RN okayed OT treatment. Pt. agitated with catheter positioning RN notified and addressed. PAIN: 03/28: low back Vitals: Nurse checked vitals prior to session Oxygen: 2L NC 94% Heart Rate: 66 COGNITION: Slow Processing, Decreased Insight and Decreased Problem Solving ADL: Upper Extremity Dressing: Minimal Assistance. to don lumbar corset Toileting: Dependent. for charley care Pt. incontinent of stool x 3 . BALANCE: Sitting Balance: Stand By Assistance. b BED MOBILITY: Rolling to Left: Minimal Assistance, Moderate Assistance Rolling to Right: Minimal Assistance, Moderate Assistance Supine to Sit: Moderate Assistance, with rail, with verbal cues , with increased time for completion Scooting: Minimal Assistance, Moderate Assistance TRANSFERS: Sit to Stand: Minimal Assistance from bed, Moderate Assistance from chair Stand to Sit: Contact Guard Assistance. FUNCTIONAL MOBILITY: Assistive Device: Rolling Walker Assist Level: Contact Guard Assistance. Distance: ~ 3 feet x 2 Slow pace no LOB ADDITIONAL ACTIVITIES: Pt. Required extended time to complete due to incontinence of stool. Pt. Able to recall 3/3 precautions. ASSESSMENT: Activity Tolerance: Patient tolerance of treatment: fair. Discharge Recommendations: Inpatient Rehabilitation Equipment Recommendations: Equipment Needed: Yes Other: continue to assess needs Plan: Times per Week: 5x Times per Day: Daily Patient Education Patient Education: ADL's, Precautions, Importance of Increasing Activity and Assistive Device Safety Goals Short Term Goals Time Frame for Short term goals: by discharge Short Term Goal 1: Pt will complete functional mobility to/from bathroom with SBA and no LOB or safety cues to increase indep with ADLs Short Term Goal 2: Pt will tolerate dynamic standing x5min with SBA and B hand release to increase indep with grooming Short Term Goal 3: Pt will complete LB ADLs with LHAE prn and 0-2 VC for back precautions to increase indep with dressing Short Term Goal 4: Pt will complete sit to stand t/fs with CGA and min VC for safety to increase indep with toileting Following session, patient left in safe position with all fall risk precautions in place. * Maki Reed PA-C - 02/17/2022 6:04 AM EDT Department of Orthopedic Surgery Spine Service Attending Progress Note Subjective: POD#10 Pt resting comfortably in bed. Reports feeling lightheaded when getting up, current SBP 106. Oxygen 93%, placed on 2L O2. C/o left groin pain/discomfort. Vitals VITALS: BP 106/66 Pulse 66 Temp 98.1 F (36.7 C) (Oral) Resp 18 Ht 5' 10 (1.778 m) Wt 240 lb (108.9 kg) SpO2 93% BMI 34.44 kg/m 24HR INTAKE/OUTPUT: Intake/Output Summary (Last 24 hours) at 02/17/2022 0604 Last data filed at 02/17/2022 0523 Gross per 24 hour Intake 1180 ml Output 1200 ml Net -20 ml URINARY CATHETER OUTPUT (Carrington): [REMOVED] Urinary Catheter-Output (mL): 250 mL External Urinary Catheter-Output (mL): 600 mL Urinary Catheter-Output (mL): 600 mL DRAIN/TUBE OUTPUT: [REMOVED] Closed/Suction Drain Left Accordion-Output (ml): 20 ml [REMOVED] Closed/Suction Drain Right Accordion-Output (ml): 20 ml PHYSICAL EXAM: Orientation: alert and oriented to person, place and time Incision: dressing in place, clean, dry, intact Lower Extremity Motor : extensor hallucis longus, dorsiflexion, plantarflexion 4-5/5 bilaterally Lower Extremity Sensory: Intact L1-S1 Calves soft, no TTP Flatus: positive ABNORMAL EXAM FINDINGS: none LABS: HgB: Lab Results Component Value Date HGB 9.5 02/15/2022 ASSESSMENT AND PLAN: Post operative day 10 status post L2-S1 decompression and fusion with L4-S1 revision decompression 1: Monitor labs. 2: Activity Level: As tolerated 3: Pain Control: good 4: Discharge Planning: Pending - once rehab is set up and ok with consulting physicians maki reed PA-C * Evelina Parra MD - 02/16/2022 12:53 PM EDT INTERNAL MEDICINE Progress Note 02/16/2022 12:53 PM Subjective: Admit Date: 02/07/2022 PCP: ELLEN CRABTREE DO Interval History: Hypoxemia, on home cpap / O2 on midodrine, Objective: Vitals: BP 114/72 Pulse 68 Temp 98.1 F (36.7 C) (Oral) Resp 17 Ht 5' 10 (1.778 m) Wt 240lb (108.9 kg) SpO2 96% BMI 34.44 kg/m General appearance: alert and cooperative with exam HEENT: atraumatic Neck: no JVD Lungs: clear to auscultation bilaterally Heart: S1, S2 normal Abdomen: soft, non-tender; bowel sounds normal; no masses, no organomegaly Extremities: traceedema, Neurologic: Alert, oriented, thought content appropriate Medications: Scheduled Meds: carbidopa-levodopa 1 tablet Oral TID carbidopa-levodopa 2 tablet Oral BID midodrine 15 mg Oral TID WC [Held by provider] acarbose 25 mg Oral TID WC atorvastatin 10 mg Oral Nightly mometasone-formoterol 2 puff Inhalation BID DULoxetine 60 mg Oral Nightly metFORMIN 500 mg Oral BID WC pantoprazole 40 mg Oral Daily QUEtiapine 25 mg Oral Nightly topiramate 100 mg Oral Daily sodium chloride flush 5-40 mL IntraVENous 2 times per day polyethylene glycol 17 g Oral Daily bisacodyl 5 mg Oral Daily sennosides-docusate sodium 1 tablet Oral BID carbidopa-levodopa 1 tablet Oral 4x Daily And carbidopa-levodopa 2 tablet Oral BID insulin lispro 0-6 Units SubCUTAneous TID WC insulin lispro 0-3 Units SubCUTAneous Nightly tolterodine 4 mg Oral Daily pregabalin 300 mg Oral BID ezetimibe 10 mg Oral Nightly Continuous Infusions: dextrose sodium chloride Lab Results: CBC: Recent Labs 02/15/22 1253 WBC 4.3* HGB 9.5* PLT 159 BMP: Recent Labs 02/15/22 1253 NA 138 K 3.9 CL 105 CO2 25 BUN 19 CREATININE 1.0 GLUCOSE 101 HgBA1c: Lab Results Component Value Date LABA1C 5.3 01/23/2022 Ref. Range 02/09/2022 05:50 02/09/2022 11:55 02/09/2022 12:28 02/09/2022 13:30 CORTISOL Latest Units: ug/dL 4.35 7.85 15.55 21.14 Cortisol Collection Info Unknown AM Specimen Baseline 30 Minute 60 Minute Assessment and Plan: 1. L2-S1 degenerative disc disease with neuroforaminal stenosis s/p L2-S1 decompression and fusion with L4-S1 revision decompression -cont post op care, PT/OT 2. HLD 3. DM2 4. COPD 5. Acute resp failure postop, cont O2 prn, 6. YOLA, on home CPAP 7. Thrombocytopenia -better ++ 8. Parkinson's dx, on sinemet 9. Chronic + Post op hypotension -cont midodrine Evelina Parra MD, MD * SHRAVAN Pressley - 02/16/2022 12:29 PM EDT Department of Orthopedic Surgery Spine Service Attending Progress Note Subjective: POD#9 patient doing okay, sitting up in chair eating breakfast. Reports feeling lightheaded when getting up, current SBP 114. Oxygen 91%, placed on O2, down to 2 L now. Vitals VITALS: BP 114/72 Pulse 68 Temp 98.1 F (36.7 C) (Oral) Resp 17 Ht 5' 10 (1.778 m) Wt 240lb (108.9 kg) SpO2 96% BMI 34.44 kg/m 24HR INTAKE/OUTPUT: Intake/Output Summary (Last 24 hours) at 02/16/2022 1229 Last data filed at 02/16/2022 1205 Gross per 24 hour Intake 480 ml Output Net 480 ml URINARY CATHETER OUTPUT (Carrington): [REMOVED] Urinary Catheter-Output (mL): 250 mL External Urinary Catheter-Output (mL): 1100 mL DRAIN/TUBE OUTPUT: [REMOVED] Closed/Suction Drain Left Accordion-Output (ml): 20 ml [REMOVED] Closed/Suction Drain Right Accordion-Output (ml): 20 ml PHYSICAL EXAM: Orientation: alert and oriented to person, place and time Incision: dressing in place, clean, dry, intact Lower Extremity Motor : extensor hallucis longus, dorsiflexion, plantarflexion 4-5/5 bilaterally except Lower Extremity Sensory: Intact L1-S1 Calves soft, no TTP Flatus: positive ABNORMAL EXAM FINDINGS: none LABS: HgB: Lab Results Component Value Date HGB 9.5 02/15/2022 ASSESSMENT AND PLAN: Post operative day 9 status post L2-S1 decompression and fusion with L4-S1 revision decompression 1: Monitor labs. 2: Activity Level: As tolerated 3: Pain Control: good 4: Discharge Planning: Pending - once rehab is set up and ok with consulting physicians SHRAVAN Pressley * Ute Wall PT - 02/16/2022 10:39 AM EDT [facility] INPATIENT PHYSICAL THERAPY DAILY NOTE [facility] ORTHOPEDICS 7K - 7K-12/012-A Time In: 1038 Time Out: 1107 Timed Code Treatment Minutes: 24 Minutes Minutes: 29 Subtracted 5 minutes from total treatment time to step out of the room to answer an Acute PT phone call. 29 minutes subtract 5 minutes= 24 timed code treatment minutes Date: 02/16/2022 Patient Name: Alisia Correa, Gender: male : 1960 (61 y.o.) Referring Practitioner: Davion Reed PA-C Diagnosis: lumbar stenosis with neurogenic claudication Additional Pertinent Hx: Per HPI: The patient is a 61 y.o. male who presents with above chief complaint. Constant stabbing pain in the low back that radiates down the posterior legs to the feet andtoes. Pt also c/o intermittent shooting pains down the legs posteriorly. He c/o numbness throughoutbilateral legs with tingling in b/l feet. He has had multiple neck and back surgeries and has a spin al cord stimulator. 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 Symptoms have been progressively worsening. Current VAS score 7/10. 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 He states incontinence has been progressively worsening over the last 6 months or so, now occurring with saddle anesthesia/complete loss of sensation during urinationand bowel movements. Percentage noriega, pt's pain occurs 50% in the back and 50% in the legs. As it pe rtains to the legs 50% right and 50% left. Pt is s/p L2-S1 DECOMPRESSION L2-S1 POSTERIOR FUSION WITH ILIAC BOLTS, L5-S1 TLIF by Dr. Loza. 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 RN approved session, when asked about pt's low BP approvesfurther mobility, states the pt has been running low. Time during session to assess vital signs andto don LSO brace. PAIN: 7/10: low back Vitals: Blood Pressure: supine 111/61, in chair following mobility 97/55 Oxygen: 96% baseline, kept WFL Heart Rate: 59 BPM, kep WFL entire session Pt on 3L O2 OBJECTIVE: Bed Mobility: Rolling to Right: Moderate Assistance, with rail, with increased time for completion Supine to Sit: Moderate Assistance, with head of bed raised, with rail, with increased time for completion *HOB~ 40degrees Educated on log roll technique Transfers: Sit to Stand: Moderate Assistance, with increased time for completion, cues for hand placement Stand to Sit:Moderate Assistance, with increased time for completion, cues for hand placement Pt required increased assist for force production to stand and to slowly lower to chair. Ambulation: Minimal Assistance, with verbal cues , with increased time for completion Distance: ~5' Surface: Level Tile Device:Rolling Walker Gait Deviations: Forward Flexed Posture, Slow Adriana, Decreased Step Length Bilaterally, DecreasedHeel Strike Bilaterally, Mild Path Deviations, Unsteady Gait and Decreased Terminal Knee Extension *Pt declined further ambulation distance this date, states some lightheadedness with ambulation, improved when sitting down. BP taken in seated, RN aware. *Pt noted to have difficulty initiating mobility, with difficulty with force production to initiateswing phase of gait cycle. Pt noted to have minimal DF, with lack of heel strike. Min assist to sequence to the chair, support instability, and for RW progression. Balance: Static Sitting Balance: Contact Guard Assistance Static Standing Balance: Minimal Assistance *Time in seated position to don LSO, pt required max assist with this Exercise: Patient was guided in 1 set(s) 12 reps of exercise to both lower extremities. Ankle pumps x20, Heelslides and Long arc quads. Exercises were completed for increased independencewith functional mobility. *Cues and demo provided for appropriate completion of exercises. Cues to maintain within a tolerable range provided. *Pt required AAROM for heel slide completion, secondary to difficulty with this *Limited ROM with LAQ noted Functional Outcome Measures: Completed AM-[facility] Inpatient Mobility without Stair Climbing Raw Score : 12 AM-[facility] Inpatient without Stair Climbing T-Scale Score : 37.26 ASSESSMENT: Assessment: Patient progressing toward established goals. Activity Tolerance: Patient tolerance of treatment: fair. Pt requiring increased assist for mobility with cues for safety. Pt noted to have drop in BP with mobility with some c/o lightheadedness. RN aware. Pt with good participation and awareness of his spinal precautions. Equipment Recommendations:Equipment Needed: No Discharge Recommendations: Inpatient Rehabilitation, 24 hour assistance or supervision and Patient would benefit from continued PT at discharge Plan: Current Treatment Recommendations: Strengthening,Balance training,Functional mobility training,Transfer training,Neuromuscular re- education,Pain management,Patient/Caregiver education & haim noreen,Positioning,Safety education & training,Gait training,Endurance training Plan Comment: 6 x O Plan: (6 x O) Patient Education Patient Education: Plan of Care, Precautions/Restrictions, Bed Mobility, Transfers, Gait, Verbal Exercise Instruction Goals: Patient goals : return home Short Term Goals Time Frame for Short term goals: by hospital discharge Short term goal 1: Roll to L and to R with modified independence for ease of bed mobility. Short term goal 2: Supine to/from sit with CGA x 1 for ease of getting in/OOB. Short term goal 3: Sit to/from stand with CGA x 1 in preparation for ambulation. Short term goal 4: Ambulate 20' with RW and CGA x1 to navigate home distances. 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 * Lulu Chan OT - 02/15/2022 2:57 PM EDT [facility] [place] ORTHOPEDICS 7K Occupational Therapy Daily Note Time: Time In: 1452 Time Out: 1520 Timed Code Treatment Minutes: 28 Minutes Minutes: 28 Date: 02/15/2022 Patient Name: Alisia Correa, Gender: male Room: [address] [place] [address] : 1960 (61 y.o.) Referring Practitioner: Maki Reed PA-C Diagnosis: Lumbar stenosis with neurogenic claudication Additional Pertinent Hx: Per HPI: The patient is a 61 y.o. male who presents with above chief complaint. Constant stabbing pain in the low back that radiates down the posterior legs to the feet andtoes. Pt also c/o intermittent shooting pains down the legs posteriorly. He c/o numbness throughoutbilateral legs with tingling in b/l feet. He has had multiple neck and back surgeries and has a spin al cord stimulator. 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 Symptoms have been progressively worsening. Current VAS score 7/10. 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 He states incontinence has been progressively worsening over the last 6 months or so, now occurring with saddle anesthesia/complete loss of sensation during urinationand bowel movements. Percentage noriega, pt's pain occurs 50% in the back and 50% in the legs. As it pe rtains to the legs 50% right and 50% left. Pt is s/p L2-S1 DECOMPRESSION L2-S1 POSTERIOR FUSION WITH ILIAC BOLTS, L5-S1 TLIF [address] Dr[address] Loza. Restrictions/Precautions: Restrictions/Precautions: General Precautions,Fall Risk Required Braces or Orthoses Spinal: Lumbar Corset Other: Abdominal Binder Position Activity Restriction Spinal Precautions: No Bending,No Lifting,No Twisting Other position/activity restrictions: hx PD; monitor BP SUBJECTIVE: RN approved of OT session. Pt supine in bed and agreeable to therapy. PAIN: 6/10: achy in low back Vitals: Blood Pressure: 124/67 COGNITION: Slow Processing, Decreased Insight and Decreased Problem Solving ADL: Toileting: Dependent. cleaning bottom after BM - pt incontinet requiring increase time for clean up Toilet Transfer: Minimal Assistance. to/from BSC - required increase time to complete. *lumbar corset: minimal assist to don lumbar corset BALANCE: Sitting Balance: Stand By Assistance. Standing Balance: Contact Guard Assistance. with 2 UE support on RW with standing x1 minute x2 times BED MOBILITY: Supine to Sit: Moderate Assistance for BLE *education provided on log roll technique TRANSFERS: Sit to Stand: Moderate Assistance, X 1, with increased time for completion. from EOB. difficulty with hand transfer from bed to RW height Stand to Sit: Minimal Assistance. To recliner FUNCTIONAL MOBILITY: Assistive Device: Rolling Walker Assist Level: Contact Guard Assistance. Distance: EOB > BSC (~7 feet) & BSC to recliner (~7 feet) Slow pace, incontinent of bowels when ambulating ADDITIONAL ACTIVITIES: Pt able to state 3/3 back precautions ASSESSMENT: Activity Tolerance: Patient tolerance of treatment: good. Discharge Recommendations: Inpatient Rehabilitation Equipment Recommendations: Equipment Needed: Yes Other: continue to assess needs Plan: Times per Week: 5x Times per Day: Daily Patient Education Patient Education: Role of OT, ADL's and Precautions Goals Short Term Goals Time Frame for Short term goals: by discharge Short Term Goal 1: Pt will complete functional mobility to/from bathroom with SBA and no LOB or safety cues to increase indep with ADLs Short Term Goal 2: Pt will tolerate dynamic standing x5min with SBA and B hand release to increase indep with grooming Short Term Goal 3: Pt will complete LB ADLs with LHAE prn and 0-2 VC for back precautions to increase indep with dressing Short Term Goal 4: Pt will complete sit to stand t/fs with CGA and min VC for safety to increase indep with toileting Following session, patient left in safe position with all fall risk precautions in place. * Evelina Parra MD - 02/15/2022 12:29 PM EDT INTERNAL MEDICINE Progress Note 02/15/2022 12:29 PM Subjective: Admit Date: 02/07/2022 PCP: ELLEN CRABTREE DO Interval History: No new c/o today on midodrine, Objective: Vitals: BP (!) 86/51 Pulse 67 Temp 97.7 F (36.5 C) (Oral) Resp 16 Ht 5' 10 (1.778 m) Wt 240 lb (108.9 kg) SpO2 92% BMI 34.44 kg/m General appearance: alert and cooperative with exam HEENT: atraumatic Neck: no JVD Lungs: clear to auscultation bilaterally Heart: S1, S2 normal Abdomen: soft, non-tender; bowel sounds normal; no masses, no organomegaly Extremities: traceedema, Neurologic: Alert, oriented, thought content appropriate Medications: Scheduled Meds: carbidopa-levodopa 1 tablet Oral TID carbidopa-levodopa 2 tablet Oral BID midodrine 15 mg Oral TID WC acarbose 25 mg Oral TID WC atorvastatin 10 mg Oral Nightly mometasone-formoterol 2 puff Inhalation BID DULoxetine 60 mg Oral Nightly metFORMIN 500 mg Oral BID WC pantoprazole 40 mg Oral Daily QUEtiapine 25 mg Oral Nightly topiramate 100 mg Oral Daily sodium chloride flush 5-40 mL IntraVENous 2 times per day polyethylene glycol 17 g Oral Daily bisacodyl 5 mg Oral Daily sennosides-docusate sodium 1 tablet Oral BID carbidopa-levodopa 1 tablet Oral 4x Daily And carbidopa-levodopa 2 tablet Oral BID insulin lispro 0-6 Units SubCUTAneous TID WC insulin lispro 0-3 Units SubCUTAneous Nightly tolterodine 4 mg Oral Daily pregabalin 300 mg Oral BID ezetimibe 10 mg Oral Nightly Continuous Infusions: dextrose sodium chloride Lab Results: CBC: Recent Labs 02/12/22 1452 WBC 5.1 HGB 9.8* PLT 142 BMP: Recent Labs 02/12/22 1452 NA 138 K 3.9 CL 105 CO2 24 BUN 17 CREATININE 0.9 GLUCOSE 66* HgBA1c: Lab Results Component Value Date LABA1C 5.3 01/23/2022 Ref. Range 02/09/2022 05:50 02/09/2022 11:55 02/09/2022 12:28 02/09/2022 13:30 CORTISOL Latest Units: ug/dL 4.35 7.85 15.55 21.14 Cortisol Collection Info Unknown AM Specimen Baseline 30 Minute 60 Minute Assessment and Plan: 1. L2-S1 degenerative disc disease with neuroforaminal stenosis s/p L2-S1 decompression and fusion with L4-S1 revision decompression -cont post op care, PT/OT 2. HLD 3. PD 4. DM2 5. COPD 6. Acute resp failure postop, better, on RA 7. Thrombocytopenia -better ++ 8. Parkinson's dx, on sinemet 9. Chronic + Post op hypotension -cont midodrine Evelina Parra MD, MD * SHRAVAN Pressley - 02/15/2022 10:23 AM EDT Department of Orthopedic Surgery Spine Service Attending Progress Note Subjective: POD#8 preop radicular sx improved, ambulating short distances around room, +BM, still w/ urge incontinence for bowel and bladder, present preop. Reports some dizziness with BP changes Vitals VITALS: BP (!) 86/51 Pulse 67 Temp 97.7 F (36.5 C) (Oral) Resp 16 Ht 5' 10 (1.778 m) Wt 240 lb (108.9 kg) SpO2 92% BMI 34.44 kg/m 24HR INTAKE/OUTPUT: Intake/Output Summary (Last 24 hours) at 02/15/2022 1023 Last data filed at 02/15/2022 0915 Gross per 24 hour Intake 222 ml Output 1350 ml Net -1128 ml URINARY CATHETER OUTPUT (Carrington): [REMOVED] Urinary Catheter-Output (mL): 250 mL External Urinary Catheter-Output (mL): 1100 mL DRAIN/TUBE OUTPUT: Closed/Suction Drain Left Accordion-Output (ml): 20 ml Closed/Suction Drain Right Accordion-Output (ml): 20 ml PHYSICAL EXAM: Orientation: alert and oriented to person, place and time Incision: dressing in place, clean, dry, intact Lower Extremity Motor : extensor hallucis longus, dorsiflexion, plantarflexion 4-5/5 bilaterally except Lower Extremity Sensory: Intact L1-S1 Calves soft, no TTP Flatus: positive ABNORMAL EXAM FINDINGS: none LABS: HgB: Lab Results Component Value Date HGB 9.8 02/12/2022 ASSESSMENT AND PLAN: Post operative day 8 status post L2-S1 decompression and fusion with L4-S1 revision decompression 1: Monitor labs. 2: Activity Level: As tolerated 3: Pain Control: good 4: Discharge Planning: Pending - once rehab is set up and ok with consulting physicians SHRAVAN Pressley * Josue Vaughan PT - 02/14/2022 3:02 PM EDT [facility] INPATIENT PHYSICAL THERAPY DAILY NOTE [facility] 7K - 7K-12/012-A Time In: 1416 Time Out: 1444 Timed Code Treatment Minutes: 28 Minutes Minutes: 28 Date: 02/14/2022 Patient Name: Alisia Correa, Gender: male : 1960 (61 y.o.) Referring Practitioner: Davion Reed PA-C Diagnosis: lumbar stenosis with neurogenic claudication Additional Pertinent Hx: Per HPI: The patient is a 61 y.o. male who presents with above chief complaint. Constant stabbing pain in the low back that radiates down the posterior legs to the feet andtoes. Pt also c/o intermittent shooting pains down the legs posteriorly. He c/o numbness throughoutbilateral legs with tingling in b/l feet. He has had multiple neck and back surgeries and has a spin al cord stimulator. 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 Symptoms have been progressively worsening. Current VAS score 7/10. 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 He states incontinence has been progressively worsening over the last 6 months or so, now occurring with saddle anesthesia/complete loss of sensation during urinationand bowel movements. Percentage noriega, pt's pain occurs 50% in the back and 50% in the legs. As it pe rtains to the legs 50% right and 50% left. Pt is s/p L2-S1 DECOMPRESSION L2-S1 POSTERIOR FUSION WITH ILIAC BOLTS, L5-S1 TLIF [address] Dr[address] Loza. 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 Pt pleasant and agreeable to therapy PAIN: 10: back Vitals: Vitals not assessed per clinical judgement, see nursing flowsheet OBJECTIVE: Bed Mobility: Supine to Sit: Moderate Assistance, X 1, with head of bed raised, with rail, with verbal cues , with increased time for completion Transfers: Sit to Stand: Moderate Assistance, X 1, with increased time for completion, cues for hand placement Stand to Sit:Moderate Assistance, X 1, with increased time for completion, cues for hand placement *raised EOB; verbal cues required for hand placement, safety and sequencing Ambulation: Minimal Assistance, X 1, with cues for safety, with increased time for completion Distance: 14' Surface: Level Tile Device:Rolling Walker Gait Deviations: Slow Adriana, Decreased Step Length Bilaterally, Decreased Gait Speed, Decreased Heel Strike Bilaterally, Mild Path Deviations, Unsteady Gait, genu recurvatum noted on L and trendelenburg noted on R Balance: Static Sitting Balance: Contact Guard Assistance Static Standing Balance: Contact Guard Assistance Exercise: Patient was guided in 1 set(s) 10 reps of exercise to both lower extremities. Heelslides, Hip abduction/adduction, Seated marches, Seated hamstring curls and Seated heel/toe raises. Exercises were completed for increased independence with functional mobility. *pt requires mod A to complete heelslideds and hip abd/add Functional Outcome Measures: Completed AM-[facility] Inpatient Mobility without Stair Climbing Raw Score : 13 AM-[facility] Inpatient without Stair Climbing T-Scale Score : 38.96 ASSESSMENT: Assessment: Patient progressing toward established goals. Activity Tolerance: Patient tolerance of treatment: good. Pt would benefit from intensive inpatientrehab for increased functional ind and safety to prevent falls and return home safely. Equipment Recommendations:Equipment Needed: No Discharge Recommendations: Inpatient Rehabilitation Plan: Current Treatment Recommendations: Strengthening,Balance training,Functional mobility training,Transfer training,Neuromuscular re- education,Pain management,Patient/Caregiver education & haim noreen,Positioning,Safety education & training,Gait training,Endurance training Plan Comment: 6 x O Plan: (6 x O) Patient Education Patient Education: Plan of Care, Bed Mobility, Transfers, Gait, Verbal Exercise Instruction Goals: Patient goals : return home Short Term Goals Time Frame for Short term goals: by hospital discharge Short term goal 1: Roll to L and to R with modified independence for ease of bed mobility. Short term goal 2: Supine to/from sit with CGA x 1 for ease of getting in/OOB. Short term goal 3: Sit to/from stand with CGA x 1 in preparation for ambulation. Short term goal 4: Ambulate 20' with RW and CGA x1 to navigate home distances. 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 Josue Vaughan PT, DPT * Evelina Parra MD - 02/14/2022 12:32 PM EDT INTERNAL MEDICINE Progress Note 02/14/2022 12:32 PM Subjective: Admit Date: 02/07/2022 PCP: ELLEN CRABTREE, DO Interval History: Low bp on midodrine, Objective: Vitals: BP 107/61 Pulse 70 Temp 98 F (36.7 C) (Oral) Resp 16 Ht 5' 10 (1.778 m) Wt 240 lb (108.9 kg) SpO2 94% BMI 34.44 kg/m General appearance: alert and cooperative with exam HEENT: atraumatic Neck: no JVD Lungs: clear to auscultation bilaterally Heart: S1, S2 normal Abdomen: soft, non-tender; bowel sounds normal; no masses, no organomegaly Extremities: + edema, Neurologic: Alert, oriented, thought content appropriate Medications: Scheduled Meds: carbidopa-levodopa 1 tablet Oral TID carbidopa-levodopa 2 tablet Oral BID tamsulosin 0.4 mg Oral Nightly midodrine 15 mg Oral TID WC acarbose 25 mg Oral TID WC atorvastatin 10 mg Oral Nightly mometasone-formoterol 2 puff Inhalation BID DULoxetine 60 mg Oral Nightly metFORMIN 500 mg Oral BID WC pantoprazole 40 mg Oral Daily QUEtiapine 25 mg Oral Nightly topiramate 100 mg Oral Daily sodium chloride flush 5-40 mL IntraVENous 2 times per day polyethylene glycol 17 g Oral Daily bisacodyl 5 mg Oral Daily sennosides-docusate sodium 1 tablet Oral BID carbidopa-levodopa 1 tablet Oral 4x Daily And carbidopa-levodopa 2 tablet Oral BID insulin lispro 0-6 Units SubCUTAneous TID WC insulin lispro 0-3 Units SubCUTAneous Nightly tolterodine 4 mg Oral Daily pregabalin 300 mg Oral BID ezetimibe 10 mg Oral Nightly Continuous Infusions: dextrose sodium chloride Lab Results: CBC: Recent Labs 02/12/22 1452 WBC 5.1 HGB 9.8* PLT 142 BMP: Recent Labs 02/12/22 1452 NA 138 K 3.9 CL 105 CO2 24 BUN 17 CREATININE 0.9 GLUCOSE 66* HgBA1c: Lab Results Component Value Date LABA1C 5.3 01/23/2022 Ref. Range 02/09/2022 05:50 02/09/2022 11:55 02/09/2022 12:28 02/09/2022 13:30 CORTISOL Latest Units: ug/dL 4.35 7.85 15.55 21.14 Cortisol Collection Info Unknown AM Specimen Baseline 30 Minute 60 Minute Assessment and Plan: 1. L2-S1 degenerative disc disease with neuroforaminal stenosis s/p L2-S1 decompression and fusion with L4-S1 revision decompression -cont post op care, PT/OT 2. HLD 3. PD 4. DM2 5. COPD 6. Acute resp failure postop, better, on RA 7. Thrombocytopenia -better ++ 8. Parkinson's dx, on sinemet 9. Post op hypotension -cont midodrine Evelina Parra MD, MD * HOLLY Mchugh - 02/14/2022 10:57 AM EDT [facility] OCCUPATIONAL THERAPY MISSED TREATMENT NOTE [facility] 7K 7K-12/012-A Date: 02/14/2022 Patient Name: Alisia Correa CSN: [id number] : 1960 (61 y.o.) Gender: male Referring Practitioner: Maki Reed PA-C Diagnosis: Lumbar stenosis with neurogenic claudication REASON FOR MISSED TREATMENT: Hold Treatment per Nursing patient currently has low BP, will attempt back as time allows, or if patient is medically appropriate this date. * Don Singh PA-C - 02/14/2022 8:23 AM EDT Department of Orthopedic Surgery Spine Service Attending Progress Note Subjective: POD#7 patient doing ok sitting up in bed. Denies MILLER or dizziness. Preoperative radicular sx improved. +BM, still w/ urge incontinence for bowel and bladder, present preop. Vitals VITALS: BP 115/69 Pulse 62 Temp 98.5 F (36.9 C) (Oral) Resp 16 Ht 5' 10 (1.778 m) Wt 240lb (108.9 kg) SpO2 96% BMI 34.44 kg/m 24HR INTAKE/OUTPUT: Intake/Output Summary (Last 24 hours) at 02/14/2022 0823 Last data filed at 02/14/2022 0659 Gross per 24 hour Intake 550 ml Output 510 ml Net 40 ml URINARY CATHETER OUTPUT (Carrington): [REMOVED] Urinary Catheter-Output (mL): 250 mL External Urinary Catheter-Output (mL): 225 mL DRAIN/TUBE OUTPUT: Closed/Suction Drain Left Accordion-Output (ml): 20 ml Closed/Suction Drain Right Accordion-Output (ml): 20 ml PHYSICAL EXAM: Orientation: alert and oriented to person, place and time Incision: dressing in place, clean, dry, intact Lower Extremity Motor : extensor hallucis longus, dorsiflexion, plantarflexion 4-5/5 bilaterally except Lower Extremity Sensory: Intact L1-S1 Calves soft, no TTP Flatus: positive ABNORMAL EXAM FINDINGS: none LABS: HgB: Lab Results Component Value Date HGB 9.8 02/12/2022 ASSESSMENT AND PLAN: Post operative day 7 status post L2-S1 decompression and fusion with L4-S1 revision decompression 1: Monitor labs. Remove drains 2: Activity Level: As tolerated 3: Pain Control: good 4: Discharge Planning: Pending - once rehab is set up and ok with consulting physicians Don Singh PA-C * Evelina Parra MD - 02/13/2022 4:51 PM EDT INTERNAL MEDICINE Progress Note 02/13/2022 4:51 PM Subjective: Admit Date: 02/07/2022 PCP: ELLEN CRABTREE DO Interval History: No new c/o Low bp on midodrine, Objective: Vitals: BP 92/62 Pulse 67 Temp 97.3 F (36.3 C) (Oral) Resp 18 Ht 5' 10 (1.778 m) Wt 240 lb (108.9 kg) SpO2 96% BMI 34.44 kg/m General appearance: alert and cooperative with exam HEENT: atraumatic Neck: no JVD Lungs: clear to auscultation bilaterally Heart: S1, S2 normal Abdomen: soft, non-tender; bowel sounds normal; no masses, no organomegaly Extremities: + edema, Neurologic: Alert, oriented, thought content appropriate Medications: Scheduled Meds: carbidopa-levodopa 1 tablet Oral TID [START ON 02/14/2022] carbidopa-levodopa 2 tablet Oral BID tamsulosin 0.4 mg Oral Nightly midodrine 15 mg Oral TID WC acarbose 25 mg Oral TID WC atorvastatin 10 mg Oral Nightly mometasone-formoterol 2 puff Inhalation BID DULoxetine 60 mg Oral Nightly metFORMIN 500 mg Oral BID WC pantoprazole 40 mg Oral Daily QUEtiapine 25 mg Oral Nightly topiramate 100 mg Oral Daily sodium chloride flush 5-40 mL IntraVENous 2 times per day polyethylene glycol 17 g Oral Daily bisacodyl 5 mg Oral Daily sennosides-docusate sodium 1 tablet Oral BID carbidopa-levodopa 1 tablet Oral 4x Daily And carbidopa-levodopa 2 tablet Oral BID insulin lispro 0-6 Units SubCUTAneous TID WC insulin lispro 0-3 Units SubCUTAneous Nightly tolterodine 4 mg Oral Daily pregabalin 300 mg Oral BID ezetimibe 10 mg Oral Nightly Continuous Infusions: dextrose DOPamine Stopped (02/10/22 1435) sodium chloride Lab Results: CBC: Recent Labs 02/11/22 0440 02/12/22 1452 WBC 5.7 5.1 HGB 9.8* 9.8* PLT 122* 142 BMP: Recent Labs 02/12/22 1452 NA 138 K 3.9 CL 105 CO2 24 BUN 17 CREATININE 0.9 GLUCOSE 66* HgBA1c: Lab Results Component Value Date LABA1C 5.3 01/23/2022 Ref. Range 02/09/2022 05:50 02/09/2022 11:55 02/09/2022 12:28 02/09/2022 13:30 CORTISOL Latest Units: ug/dL 4.35 7.85 15.55 21.14 Cortisol Collection Info Unknown AM Specimen Baseline 30 Minute 60 Minute Assessment and Plan: 1. L2-S1 degenerative disc disease with neuroforaminal stenosis s/p L2-S1 decompression and fusion with L4-S1 revision decompression -cont post op care, PT/OT 2. HLD 3. PD 4. DM2 5. COPD 6. Acute resp failure postop, better, on RA 7. Thrombocytopenia -better ++ 8. Parkinson's dx, on sinemet 9. Post op hypotension -cont midodrine -adrenal insufficiency not supported with ACTH stimulation; showed appropriate response >18ug/dlat 60 minutes Evelina Parra MD, MD * HOLLY Morejon - 02/13/2022 12:33 PM EDT [facility] [place] [facility]ED[facility] 7 Occupational Therapy Daily Note Time: Time In: 1109 Time Out: 1135 Timed Code Treatment Minutes: 26 Minutes Minutes: 26 Date: 02/13/2022 Patient Name: Alisia Correa, Gender: male Room: [facility]012 : 1960 (61 y.o.) Referring Practitioner: Maki Reed PA-C Diagnosis: Lumbar stenosis with neurogenic claudication Additional Pertinent Hx: Per HPI: The patient is a 61 y.o. male who presents with above chief complaint. Constant stabbing pain in the low back that radiates down the posterior legs to the feet andtoes. Pt also c/o intermittent shooting pains down the legs posteriorly. He c/o numbness throughoutbilateral legs with tingling in b/l feet. He has had multiple neck and back surgeries and has a spin al cord stimulator. 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 Symptoms have been progressively worsening. Current VAS score 7/10. 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 He states incontinence has been progressively worsening over the last 6 months or so, now occurring with saddle anesthesia/complete loss of sensation during urinationand bowel movements. Percentage noriega, pt's pain occurs 50% in the back and 50% in the legs. As it pe rtains to the legs 50% right and 50% left. Pt is s/p L2-S1 DECOMPRESSION L2-S1 POSTERIOR FUSION WITH ILIAC BOLTS, L5-S1 TLIF by Dr. Loza. Restrictions/Precautions: Restrictions/Precautions: General Precautions,Fall Risk Required Braces or Orthoses Spinal: Lumbar Corset Other: Abdominal Binder Position Activity Restriction Spinal Precautions: No Bending,No Lifting,No Twisting Other position/activity restrictions: hx PD; monitor BP SUBJECTIVE: RN okayed OT session. Pt. In chair and agreeable to participate PAIN: 04/27: lower back Vitals: Vitals not assessed per clinical judgement, see nursing flowsheet COGNITION: WFL ADL: No ADL's completed this session.. BALANCE: Sitting Balance: Stand By Assistance. while seated on edge of chair with SBA\ Standing Balance: Contact Guard Assistance. BED MOBILITY: Not Tested TRANSFERS: Sit to Stand: moderate Assistance. Stand to Sit: Contact Guard Assistance. FUNCTIONAL MOBILITY: Assistive Device: Rolling Walker Assist Level: Contact Guard Assistance. Distance: ~6 feet x 2 no LOB ADDITIONAL ACTIVITIES: Patient completed BUE strengthening exercises with skilled education on HEP: completed x10 reps x1 set with AROM in all joints and all planes in order to improve UE strength and activity tolerance required for BADL routine and toilet / shower transfers. Patient tolerated, requiring rest breaks. Patient also required verbal and visual cues for technique. ASSESSMENT: Activity Tolerance: Patient tolerance of treatment: fair. Discharge Recommendations: Inpatient Rehabilitation Equipment Recommendations: Equipment Needed: Yes Other: continue to assess needs Plan: Times per Week: 5x Times per Day: Daily Patient Education Patient Education: Home Exercise Program, Reviewed Prior Education, Importance of Increasing Activity and Assistive Device Safety and safety with functional mobility and transfers. Goals Short Term Goals Time Frame for Short term goals: by discharge Short Term Goal 1: Pt will complete functional mobility to/from bathroom with SBA and no LOB or safety cues to increase indep with ADLs Short Term Goal 2: Pt will tolerate dynamic standing x5min with SBA and B hand release to increase indep with grooming Short Term Goal 3: Pt will complete LB ADLs with LHAE prn and 0-2 VC for back precautions to increase indep with dressing Short Term Goal 4: Pt will complete sit to stand t/fs with CGA and min VC for safety to increase indep with toileting Following session, patient left in safe position with all fall risk precautions in place. * Josue Vaughan, PT - 02/13/2022 11:02 AM EDT [facility] INPATIENT PHYSICAL THERAPY DAILY NOTE [facility] 7K - 7K-12/012-A Time In: 903 Time Out: 928 Timed Code Treatment Minutes: 25 Minutes Minutes: 25 Date: 02/13/2022 Patient Name: Alisia Correa, Gender: male : 1960 (61 y.o.) Referring Practitioner: Davion Reed PA-C Diagnosis: lumbar stenosis with neurogenic claudication Additional Pertinent Hx: Per HPI: The patient is a 61 y.o. male who presents with above chief complaint. Constant stabbing pain in the low back that radiates down the posterior legs to the feet andtoes. Pt also c/o intermittent shooting pains down the legs posteriorly. He c/o numbness throughoutbilateral legs with tingling in b/l feet. He has had multiple neck and back surgeries and has a spin al cord stimulator. 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 Symptoms have been progressively worsening. Current VAS score 7/10. 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 He states incontinence has been progressively worsening over the last 6 months or so, now occurring with saddle anesthesia/complete loss of sensation during urinationand bowel movements. Percentage noriega, pt's pain occurs 50% in the back and 50% in the legs. As it pe rtains to the legs 50% right and 50% left. Pt is s/p L2-S1 DECOMPRESSION L2-S1 POSTERIOR FUSION WITH ILIAC BOLTS, L5-S1 TLIF by Dr. Loza. 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 Pt pleasant and agreeable to therapy. Pt does c/o slight headache but states it is much better than yesterday. PAIN: 610: back Vitals: Vitals not assessed per clinical judgement, see nursing flowsheet OBJECTIVE: Bed Mobility: Supine to Sit: Moderate Assistance, X 1, with rail, with verbal cues , with increased time for completion Transfers: Sit to Stand: Minimal Assistance, X 1, cues for hand placement Stand to Sit:Contact Guard Assistance, X 1 Ambulation: Minimal Assistance, X 1, with cues for safety, with increased time for completion Distance: 10' Surface: Level Tile Device:Rolling Walker Gait Deviations: Forward Flexed Posture, Slow Adriana, Decreased Step Length Bilaterally, DecreasedGait Speed, Decreased Heel Strike Bilaterally, Ataxia and Wide Base of Support Balance: Static Sitting Balance: Contact Guard Assistance Static Standing Balance: Contact Guard Assistance Exercise: Patient was guided in 1 set(s) 10 reps of exercise to both lower extremities. Seated heel/toe raises and Long arc quads. Exercises were completed for increased independence withfunctional mobility. Functional Outcome Measures: Completed AM-PAC Inpatient Mobility without Stair Climbing Raw Score : 15 AM-PAC Inpatient without Stair Climbing T-Scale Score : 43.03 ASSESSMENT: Assessment: Patient progressing toward established goals. Activity Tolerance: Patient tolerance of treatment: good. Equipment Recommendations:Equipment Needed: No Discharge Recommendations: Inpatient Therapy Stay Plan: Current Treatment Recommendations: Strengthening,Balance training,Functional mobility training,Transfer training,Neuromuscular re- education,Pain management,Patient/Caregiver education & haim noreen,Positioning,Safety education & training,Gait training,Endurance training Plan Comment: 6 x O Plan: (6 x O) Patient Education Patient Education: Plan of Care, Precautions/Restrictions, Bed Mobility, Transfers, Gait, Verbal Exercise Instruction Goals: Patient goals : return home Short Term Goals Time Frame for Short term goals: by hospital discharge Short term goal 1: Roll to L and to R with modified independence for ease of bed mobility. Short term goal 2: Supine to/from sit with CGA x 1 for ease of getting in/OOB. Short term goal 3: Sit to/from stand with CGA x 1 in preparation for ambulation. Short term goal 4: Ambulate 20' with RW and CGA x1 to navigate home distances. Additional Goals?: No Fdc Goals Time Frame for FPC goals : N/A due to short ELOS Following session, patient left in safe position with all fall risk precautions in place. Josue Vaughan PT, DPT * SHRAVAN Pressley - 02/13/2022 6:58 AM EDT Department of Orthopedic Surgery Spine Service Attending Progress Note Subjective: POD#6 patient reports ambulating short distances yesterday, felt difficult due to swelling. Preoperative radicular sx improved. BP stable on midodrine. +BM, still w/ urge incontinence forbowel and bladder, present preop. C/o h/a when getting up yesterday, slight headache this am with laying in bed - discussed sx spinal leak, unlikely but will monitor today Vitals VITALS: BP 109/67 Pulse 57 Temp 97.7 F (36.5 C) (Oral) Resp 18 Ht 5' 10 (1.778 m) Wt 240lb (108.9 kg) SpO2 95% BMI 34.44 kg/m 24HR INTAKE/OUTPUT: Intake/Output Summary (Last 24 hours) at 02/13/2022 0658 Last data filed at 02/13/2022 0305 Gross per 24 hour Intake 1320 ml Output 2210 ml Net -890 ml URINARY CATHETER OUTPUT ([place]): [REMOVED] Urinary Catheter-Output (mL): 250 mL External Urinary Catheter-Output (mL): 600 mL DRAIN/TUBE OUTPUT: Closed/Suction Drain Left Accordion-Output (ml): 0 ml Closed/Suction Drain Right Accordion-Output (ml): 0 ml PHYSICAL EXAM: Orientation: alert and oriented to person, place and time Incision: dressing in place, clean, dry, intact Lower Extremity Motor : extensor hallucis longus, dorsiflexion, plantarflexion 4-5/5 bilaterally except Lower Extremity Sensory: Intact L1-S1 Calves soft, no TTP Flatus: positive ABNORMAL EXAM FINDINGS: none LABS: HgB: Lab Results Component Value Date HGB 9.8 02/12/2022 ASSESSMENT AND PLAN: Post operative day 6 status post L2-S1 decompression and fusion with L4-S1 revision decompression 1: Monitor labs. Remove drain 2: Activity Level: As tolerated, if patient develops a headache when sitting up, may have to be placed on bedrest 3: Pain Control: good 4: Discharge Planning: Pending - once rehab is set up SHRAVAN Pressley * HOLLY Morejon - 02/12/2022 2:39 PM EDT [facility] [place] [facility]ED[facility] 7 Occupational Therapy Daily Note Time: Time In: 1356 Time Out: 1439 Timed Code Treatment Minutes: 43 Minutes Minutes: 43 Date: 02/12/2022 Patient Name: Alisia Correa, Gender: male Room: [address] [place] [address] : 1960 (61 y.o.) Referring Practitioner: Maki Reed PA-C Diagnosis: Lumbar stenosis with neurogenic claudication Additional Pertinent Hx: Per HPI: The patient is a 61 y.o. male who presents with above chief complaint. Constant stabbing pain in the low back that radiates down the posterior legs to the feet andtoes. Pt also c/o intermittent shooting pains down the legs posteriorly. He c/o numbness throughoutbilateral legs with tingling in b/l feet. He has had multiple neck and back surgeries and has a spin al cord stimulator. 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 Symptoms have been progressively worsening. Current VAS score 7/10. 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 He states incontinence has been progressively worsening over the last 6 months or so, now occurring with saddle anesthesia/complete loss of sensation during urinationand bowel movements. Percentage noriega, pt's pain occurs 50% in the back and 50% in the legs. As it pe rtains to the legs 50% right and 50% left. Pt is s/p L2-S1 DECOMPRESSION L2-S1 POSTERIOR FUSION WITH ILIAC BOLTS, L5-S1 TLIF [address] Dr[address] Loza. Restrictions/Precautions: Restrictions/Precautions: General Precautions,Fall Risk Required Braces or Orthoses Spinal: Lumbar Corset Other: Abdominal Binder Position Activity Restriction Spinal Precautions: No Bending,No Lifting,No Twisting Other position/activity restrictions: hx PD; monitor BP SUBJECTIVE: RN okayed OT treatment. Pt. Lying supine in bed upon entry spouse present, Pt. Agreeable to participate. Pt. Required frequent rest breaks throughout Due to fatigue and Pain. PAIN: 05/28:back RN aware Vitals: Vitals not assessed per clinical judgement, see nursing flowsheet Blood Pressure: 157/75 COGNITION: WFL ADL: Lower Extremity Dressing: Minimal Assistance, with set-up, with verbal cues and with increased timefor completion. with LHAE instructed . BALANCE: Sitting Balance: Stand By Assistance. while seated on EOB for LB dressing task Standing Balance: Contact Guard Assistance, with cues for safety. Pt. Completed 2 trials of static standing 1 min each with support of RW on BUE's. BED MOBILITY: Supine to Sit: Minimal Assistance, with verbal cues , with increased time for completion Sit to Supine: Dependent, with verbal cues , with increased time for completion with B LE's Scooting: Dependent with hercules TRANSFERS: Sit to Stand: Contact Guard Assistance, with increased time for completion, with verbal cues. to/from recliner and bed Stand to Sit: Contact Guard Assistance. to recliner and bed FUNCTIONAL MOBILITY: Assistive Device: Rolling Walker Assist Level: Contact Guard Assistance. Distance: from bed to chair ADDITIONAL ACTIVITIES: Pt. Instructed on LB dressing techniques with incorporation of LHAE to maintain precautions. Pt. And spouse present and voices and understanding and familiarity with LHAE. Review of precautions, Pt. Recalled 10/21. ASSESSMENT: Activity Tolerance: Patient tolerance of treatment: fair. Discharge Recommendations: Subacute/snf facility and Inpatient Therapy Stay Equipment Recommendations: Equipment Needed: Yes Other: continue to assess needs Plan: Times per Week: 5x Times per Day: Daily Patient Education Patient Education: ADL's, Precautions, Family Education, Equipment Education, Home Safety, Importance of Increasing Activity and Assistive Device Safety and safety with functional mobility and transfers. Goals Short Term Goals Time Frame for Short term goals: by discharge Short Term Goal 1: Pt will complete functional mobility to/from bathroom with SBA and no LOB or safety cues to increase indep with ADLs Short Term Goal 2: Pt will tolerate dynamic standing x5min with SBA and B hand release to increase indep with grooming Short Term Goal 3: Pt will complete LB ADLs with LHAE prn and 0-2 VC for back precautions to increase indep with dressing Short Term Goal 4: Pt will complete sit to stand t/fs with CGA and min VC for safety to increase indep with toileting Following session, patient left in safe position with all fall risk precautions in place. * Chrissy Sneed RD, LD - 02/12/2022 1:52 PM EDT Comprehensive Nutrition Assessment Type and Reason for Visit: Reassess Nutrition Recommendations/Plan: 1. Consider MVI 2. Continue current diet and ONS (Matt BID) as ordered 3. 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 nutritionally compromised AEB wounds. At risk for further nutrition compromise r/t increased nutrient needs for wound healing,admit for lumbar stenosis with Neurogenic claudication, s/p (02/07) L2-S1 decompression & fusion with L4-S1 revision decompression underlying medical condition (Cancer Esophagus, lymph node neck, DM, HLD, Parkinson's, Hypotension). Nutrition Related Findings: Pt. Report/Treatments/Miscellaneous: Patient reports fairly good appetite, intake mostly 50-75% meals per patient, 76-100% per graphics, denies carbohydrate control diet review and states A1C has never been above 5.3% GI Status: reports liquid stools for the past few days, BM x 2 past 24 hours Pertinent Labs: A1C (01/23/22) 5.3%, today's gluocose 90, 86 Pertinent Meds: humalog, glucophage, bowel meds (dulcolax, glycolax, senokot) held due to liquid stools Wound Type: (scabbed area on left great toe, incision back medial lower, wound sacrum DTI, unstageable wound toe anterior left blackened area on tip of left great toe) Current Nutrition Intake & Therapies: Average Meal Intake: 51-75%,76-100% Average Supplements Intake: (has not tried yet) ADULT DIET; Regular; 4 carb choices (60 gm/meal) ADULT ORAL NUTRITION SUPPLEMENT; Breakfast, Dinner; Wound Healing Oral Supplement ADULT ORAL NUTRITION SUPPLEMENT; Breakfast; Other Oral Supplement; activia at B; hot beverage at B,L and D Anthropometric Measures: Height: 5' 10 (177.8 cm) [place] Body Weight (IBW): 166 lbs (75 kg) Admission Body Weight: 199 lb (90.3 kg) ((02/07) trace LLE & RLE edema) Current Body Weight: 240 lb (108.9 kg) ((02/09) + 1nonpitting RUE, LUE, RLE, LLE edema), Current BMI (kg/m2): 34.4 Usual Body Weight: (per EMR: (01/23) 209# 7oz) BMI Categories: Obese Class 1 (BMI 30.0-34.9) Estimated Daily Nutrient Needs: Energy Requirements Based On: Kcal/kg Energy (kcal/day): 1625-1806kcals (18-20kcals/kgm) Weight Used for Protein Requirements: [place] Protein (g/day): 105-150 grams (1.4-2 grams protein/kgm IBW) Nutrition Diagnosis: Increased nutrient needs related to increase demand for energy/nutrients as evidenced by wounds Nutrition Interventions: Food and/or Nutrient Delivery: Continue Current Diet,Continue Oral Nutrition Supplement Nutrition Education/Counseling: Education needed (Encouraged lean protein choice with each meal during LOS.) Coordination of Nutrition Care: Continue to monitor while inpatient Goals: Previous Goal Met: Progressing toward Goal(s) Goals: PO intake 75% or greater,prior to discharge Nutrition Monitoring and Evaluation: Behavioral-Environmental Outcomes: Knowledge or Skill Food/Nutrient Intake Outcomes: Food and Nutrient Intake,Supplement Intake Physical Signs/Symptoms Outcomes: Biochemical Data,GI Status,Fluid Status or Edema,Hemodynamic Status,Nutrition Focused Physical Findings,Skin,Weight Discharge Planning: Too soon to determine Chrissy Sneed RD, LD Contact: * Evelina Parra MD - 02/12/2022 1:48 PM EDT INTERNAL MEDICINE Progress Note 02/12/2022 1:48 PM Subjective: Admit Date: 02/07/2022 PCP: ELLEN CRABTREE DO Interval History: S/p lumbar decompression with post op hypotension, stable bp on midodrine, Reports MILLER Swollen arms / legs Objective: Vitals: BP (!) 102/59 Pulse 58 Temp 98.5 F (36.9 C) (Oral) Resp 18 Ht 5' 10 (1.778 m) Wt240 lb (108.9 kg) SpO2 97% BMI 34.44 kg/m General appearance: alert and cooperative with exam HEENT: atraumatic Neck: no JVD Lungs: clear to auscultation bilaterally Heart: S1, S2 normal Abdomen: soft, non-tender; bowel sounds normal; no masses, no organomegaly Extremities: + edema, Neurologic: Alert, oriented, thought content appropriate Medications: Scheduled Meds: midodrine 15 mg Oral TID WC acarbose 25 mg Oral TID WC atorvastatin 10 mg Oral Nightly mometasone-formoterol 2 puff Inhalation BID DULoxetine 60 mg Oral Nightly metFORMIN 500 mg Oral BID WC pantoprazole 40 mg Oral Daily QUEtiapine 25 mg Oral Nightly tamsulosin 0.8 mg Oral Nightly topiramate 100 mg Oral Daily sodium chloride flush 5-40 mL IntraVENous 2 times per day polyethylene glycol 17 g Oral Daily bisacodyl 5 mg Oral Daily sennosides-docusate sodium 1 tablet Oral BID carbidopa-levodopa 1 tablet Oral 4x Daily And carbidopa-levodopa 2 tablet Oral BID carbidopa-levodopa 1 tablet Oral TID And carbidopa-levodopa 2 tablet Oral BID insulin lispro 0-6 Units SubCUTAneous TID WC insulin lispro 0-3 Units SubCUTAneous Nightly tolterodine 4 mg Oral Daily pregabalin 300 mg Oral BID ezetimibe 10 mg Oral Nightly Continuous Infusions: dextrose DOPamine Stopped (02/10/22 1435) sodium chloride sodium chloride 75 mL/hr at 02/11/22 1647 Lab Results: CBC: Recent Labs 02/11/22 0440 WBC 5.7 HGB 9.8* PLT 122* BMP: No results for input(s): NA, K, CL, CO2, BUN, CREATININE, GLUCOSE in the last 72 hours. HgBA1c: Lab Results Component Value Date LABA1C 5.3 01/23/2022 Ref. Range 02/09/2022 05:50 02/09/2022 11:55 02/09/2022 12:28 02/09/2022 13:30 CORTISOL Latest Units: ug/dL 4.35 7.85 15.55 21.14 Cortisol Collection Info Unknown AM Specimen Baseline 30 Minute 60 Minute Assessment and Plan: 1. L2-S1 degenerative disc disease with neuroforaminal stenosis s/p L2-S1 decompression and fusion with L4-S1 revision decompression -cont post op care, PT/OT 2. HLD 3. PD 4. DM2 5. COPD 6. Acute resp failure postop, better, on RA 7. Thrombocytopenia -better 8. Parkinson's dx, on sinemet 9. Post op hypotension -cont midodrine -adrenal insufficiency not supported with ACTH stimulation; showed appropriate response >18ug/dlat 60 minutes Evelina Parra MD, MD * Samantha Corrales PTA - 02/12/2022 11:52 AM EDT [facility] INPATIENT PHYSICAL THERAPY DAILY NOTE [facility] 7K - 7K-12/012-A Time In: 827 Time Out: 905 Timed Code Treatment Minutes: 38 Minutes Minutes: 38 Date: 02/12/2022 Patient Name: Alisia Correa, Gender: male : 1960 (61 y.o.) Referring Practitioner: Davion Reed PA-C Diagnosis: lumbar stenosis with neurogenic claudication Additional Pertinent Hx: Per HPI: The patient is a 61 y.o. male who presents with above chief complaint. Constant stabbing pain in the low back that radiates down the posterior legs to the feet andtoes. Pt also c/o intermittent shooting pains down the legs posteriorly. He c/o numbness throughoutbilateral legs with tingling in b/l feet. He has had multiple neck and back surgeries and has a spin al cord stimulator. 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 Symptoms have been progressively worsening. Current VAS score 7/10. 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 He states incontinence has been progressively worsening over the last 6 months or so, now occurring with saddle anesthesia/complete loss of sensation during urinationand bowel movements. Percentage noriega, pt's pain occurs 50% in the back and 50% in the legs. As it pe rtains to the legs 50% right and 50% left. Pt is s/p L2-S1 DECOMPRESSION L2-S1 POSTERIOR FUSION WITH ILIAC BOLTS, L5-S1 TLIF by Dr. Loza. 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 Pt in bed upon arrival and agrees to therapy. Pt pleasant and cooperative for session. Did report pt has been having incontinence with mobility, this did occur duringsession, notified RN PAIN: back, pt req pain meds during session Vitals: Blood Pressure: 87/58 once in recliner- RN checked at end of session prior to giving meds. OBJECTIVE: Bed Mobility: Rolling to Left: Minimal Assistance, with head of bed raised, with rail, with verbal cues , with increased time for completion Supine to Sit: Minimal Assistance, with head of bed raised, with rail, with verbal cues , with increased time for completion Scooting: Minimal Assistance, with head of bed raised, with rail, with verbal cues , with increasedtime for completion Pt did c/o lightheadedness that subsided after sitting for a few mins Transfers: Sit to Stand: Minimal Assistance, Moderate Assistance, with increased time for completion, cues forhand placement, with verbal cues, min A from EOB, mod A from commode, 2 attempts needed each trial Stand to Sit:Contact Guard Assistance, Minimal Assistance, with increased time for completion, cuesfor hand placement, with verbal cues Ambulation: Contact Guard Assistance, Minimal Assistance, with cues for safety, with verbal cues , with increased time for completion Distance: 4ftx1 3ftx1 Surface: Level Tile Device:Rolling Walker Gait Deviations: Forward Flexed Posture, Slow Adriana, Decreased Step Length Bilaterally, DecreasedGait Speed, Decreased Heel Strike Bilaterally, Mild Path Deviations, Unsteady Gait, Decreased Terminal Knee Extension and fatigued qucikly, shaky Balance: assisted pt with donning lumbar corset brace and gait belt / managing draisn and iv and ext catherter- extra time needed due to mult lines, pt also reproting lightheadedness and requested to sit for a few mins prior to mobility. pt grossly steady Exercise: Patient was guided in 1 set(s) 10 reps of exercise to both lower extremities. Ankle pumps, Glut sets, Quad sets, Pelvic tilts and abd bracng. Exercises were completed for increased independence with functional mobility. Functional Outcome Measures: Completed AM-PAC Inpatient Mobility without Stair Climbing Raw Score : 12 AM-PAC Inpatient without Stair Climbing T-Scale Score : 37.26 ASSESSMENT: Assessment: Patient progressing toward established goals. Activity Tolerance: Patient tolerance of treatment: good. Pt demos decreased endurance, strength and independence with mobility pt will require cont PT att his time to improve overall function and independence with mobility. Equipment Recommendations:Equipment Needed: No Discharge Recommendations: Inpatient Therapy Stay Plan: Current Treatment Recommendations: Strengthening,Balance training,Functional mobility training,Transfer training,Neuromuscular re- education,Pain management,Patient/Caregiver education & haim noreen,Positioning,Safety education & training,Gait training,Endurance training Plan Comment: 6 x O Plan: (6 x O) Patient Education Patient Education: Plan of Care, Bed Mobility, Transfers, Gait, Verbal Exercise Instruction Goals: Patient goals : return home Short Term Goals Time Frame for Short term goals: by hospital discharge Short term goal 1: Roll to L and to R with modified independence for ease of bed mobility. Short term goal 2: Supine to/from sit with CGA x 1 for ease of getting in/OOB. Short term goal 3: Sit to/from stand with CGA x 1 in preparation for ambulation. Short term goal 4: Ambulate 20' with RW and CGA x1 to navigate home distances. Additional Goals?: No Sodder Goals Time Frame for FPC goals : N/A due to short ELOS Following session, patient left in safe position with all fall risk precautions in place. * SHRAVAN Pressley - 02/12/2022 6:41 AM EDT Department of Orthopedic Surgery Spine Service Attending Progress Note Subjective: POD#5, patient sat up twice yesterday, reports slight dizziness when getting up at first. Radicular symptoms improved. +BM. No issues with voiding. Vitals VITALS: BP 119/78 Pulse 52 Temp 97.5 F (36.4 C) (Axillary) Resp 18 Ht 5' 10 (1.778 m) Wt240 lb (108.9 kg) SpO2 97% BMI 34.44 kg/m 24HR INTAKE/OUTPUT: Intake/Output Summary (Last 24 hours) at 02/12/2022 0640 Last data filed at 02/12/2022 0419 Gross per 24 hour Intake 1570 ml Output 750 ml Net 820 ml URINARY CATHETER OUTPUT (Carrington): [REMOVED] Urinary Catheter-Output (mL): 250 mL External Urinary Catheter-Output (mL): 400 mL DRAIN/TUBE OUTPUT: Closed/Suction Drain Left Accordion-Output (ml): 0 ml Closed/Suction Drain Right Accordion-Output (ml): 0 ml PHYSICAL EXAM: Orientation: alert and oriented to person, place and time Incision: dressing in place, clean, dry, intact Lower Extremity Motor : extensor hallucis longus, dorsiflexion, plantarflexion 4-5/5 bilaterally except Lower Extremity Sensory: Intact L1-S1 Flatus: positive ABNORMAL EXAM FINDINGS: none LABS: HgB: Lab Results Component Value Date HGB 9.8 02/11/2022 ASSESSMENT AND PLAN: Post operative day 5 status post L2-S1 decompression and fusion with L4-S1 revision decompression 1: Monitor labs and drain output - remove drain at discharge 2: Activity Level: As tolerated 3: Pain Control: good 4: Discharge Planning: Pending - once medically stable SHRAVAN Pressley * Oumou Elizabeth RN - 02/11/2022 6:16 PM EDT Pt admitted to [facility] via cart/stretcher. Complaints: L2-S1 degenerative disc disease. L2-S1 lumbar stenosis with neurogenic claudication IV normal saline infusing into the forearm left, condition patent and no redness at a rate of 75 mls/ hour with about 800 mls in the bag still. IV site free of s/s of infection or infiltration. Vitalsigns obtained. Assessment and data collection initiated. Two nurse skin assessment performed by Oumou HAMILTON and Marion HAMILTON. Oriented to room. Explained patients right to have family, field representative or physician notified of their admission. Patient has Declined for physician to be notified. Patient has Declined for family/field representative to be notified. The patient is interested in [facility] to [facility] program?: No Policies and procedures for explained. All questions answered with no further questions at this time. Fall prevention and safety brochure discussed with patient. Bed alarm on. Call light in reach. * Peace Alonso RN - 02/11/2022 5:00 PM EDT Call placed to patients Dipti. Updated that the patient is transferring to [facility]. * Pamela Lees, PT - 02/11/2022 3:42 PM EDT [facility] INPATIENT PHYSICAL THERAPY DAILY NOTE [facility] ICU STEPDOWN TELEMETRY 4K - 4K-25/025-A Time In: 1330 Time Out: 1353 Timed Code Treatment Minutes: 23 Minutes Minutes: 23 Date: 02/11/2022 Patient Name: Alisia Correa, Gender: male : 1960 (61 y.o.) Referring Practitioner: Davion Reed PA-C Diagnosis: lumbar stenosis with neurogenic claudication Additional Pertinent Hx: Per HPI: The patient is a 61 y.o. male who presents with above chief complaint. Constant stabbing pain in the low back that radiates down the posterior legs to the feet andtoes. Pt also c/o intermittent shooting pains down the legs posteriorly. He c/o numbness throughoutbilateral legs with tingling in b/l feet. He has had multiple neck and back surgeries and has a spin al cord stimulator. 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 Symptoms have been progressively worsening. Current VAS score 7/10. 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 He states incontinence has been progressively worsening over the last 6 months or so, now occurring with saddle anesthesia/complete loss of sensation during urinationand bowel movements. Percentage noriega, pt's pain occurs 50% in the back and 50% in the legs. As it pe rtains to the legs 50% right and 50% left. Pt is s/p L2-S1 DECOMPRESSION L2-S1 POSTERIOR FUSION WITH ILIAC BOLTS, L5-S1 TLIF by Dr. Loza. 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 Second trial in pm pt agreeable for PT and OOB to chair PAIN: 04/27: MILLER, per pt had MILLER after back to bed from chair this am and relates it to his BP Vitals: Blood Pressure: sup 115/81, after up to chair 147/83 OBJECTIVE: Bed Mobility: Rolling to Left: Moderate Assistance, X 1 Supine to Sit: Moderate Assistance, X 1 Scooting: Minimal Assistance, X 1 HOB up 30 degrees, cues for log roll technique, use BR Transfers: Sit to Stand: Moderate Assistance, X 1 Stand to Sit:Minimal Assistance, X 1 Cues for hand placement for safety Ambulation: Minimal Assistance, X 1 Distance: 3'x1 Surface: Level Tile Device:Rolling Walker Gait Deviations: Forward Flexed Posture, Slow Adriana, Decreased Step Length Bilaterally, Wide Baseof Support and Unsteady Gait Balance: Static Sitting Balance: Stand By Assistance, with increased time due to pt min lightheaded, performed BLE AP maxA to jose lumbar corset Functional Outcome Measures: Completed AM-PAC Inpatient Mobility Raw Score : 12 AM-PAC Inpatient T-Scale Score : 35.33 ASSESSMENT: Assessment: Patient progressing toward established goals. and pt slow progression, pt with MILLER today, use of walker and assist for safe mobility Activity Tolerance: Patient tolerance of treatment: fair. Equipment Recommendations:Equipment Needed: No Discharge Recommendations: Continue to assess pending progress and Patient would benefit from continued PT at discharge, inpt therapy stay Plan: Current Treatment Recommendations: Strengthening,Balance training,Functional mobility training,Transfer training,Neuromuscular re- education,Pain management,Patient/Caregiver education & haim noreen,Positioning,Safety education & training,Gait training,Endurance training Plan Comment: 6 x O Plan: (6 x O) Patient Education Patient Education: Precautions/Restrictions, Bed Mobility, Transfers, Gait Goals: Patient goals : return home Short Term Goals Time Frame for Short term goals: by hospital discharge Short term goal 1: Roll to L and to R with modified independence for ease of bed mobility. Short term goal 2: Supine to/from sit with CGA x 1 for ease of getting in/OOB. Short term goal 3: Sit to/from stand with CGA x 1 in preparation for ambulation. Short term goal 4: Ambulate 20' with RW and CGA x1 to navigate home distances. Additional Goals?: No Fdc Goals Time Frame for FPC goals : N/A due to short ELOS Following session, patient left in safe position with all fall risk precautions in place. * HOLLY Valles - 02/11/2022 1:02 PM EDT [facility] ICU STEPDOWN TELEMETRY 4K Occupational Therapy Daily Note Time: Time In: 1045 Time Out: 1129 Timed Code Treatment Minutes: 44 Minutes Minutes: 44 Date: 02/11/2022 Patient Name: Alisia Correa, Gender: male Room: [address] [place] [address] : 1960 (61 y.o.) Referring Practitioner: Maki Reed PA-C Diagnosis: Lumbar stenosis with neurogenic claudication Additional Pertinent Hx: Per HPI: The patient is a 61 y.o. male who presents with above chief complaint. Constant stabbing pain in the low back that radiates down the posterior legs to the feet andtoes. Pt also c/o intermittent shooting pains down the legs posteriorly. He c/o numbness throughoutbilateral legs with tingling in b/l feet. He has had multiple neck and back surgeries and has a spin al cord stimulator. 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 Symptoms have been progressively worsening. Current VAS score 7/10. 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 He states incontinence has been progressively worsening over the last 6 months or so, now occurring with saddle anesthesia/complete loss of sensation during urinationand bowel movements. Percentage noriega, pt's pain occurs 50% in the back and 50% in the legs. As it pe rtains to the legs 50% right and 50% left. Pt is s/p L2-S1 DECOMPRESSION L2-S1 POSTERIOR FUSION WITH ILIAC BOLTS, L5-S1 TLIF [address] Dr[address] Loza. Restrictions/Precautions: Restrictions/Precautions: General Precautions,Fall Risk Required Braces or Orthoses Spinal: Lumbar Corset Other: Abdominal Binder Position Activity Restriction Spinal Precautions: No Bending,No Lifting,No Twisting Other position/activity restrictions: hx PD; monitor BP SUBJECTIVE: Pt sitting in chair upon arrival. Pt friendly and agreeable to Tx. Nursing notified of edema to L hand. Pt demo'd edema to all extremities with an increase to L hand. PAIN: Pt reports pain 7/10 to lower back during movement. Vitals: Blood Pressure: at start of Tx, 102/60 HR 74. No complaints of dizziness this day COGNITION: WFL ADL: Bathing: Moderate Assistance and with set-up. Engaged in seated BUE, BLE sponge bath. Max A to LE'ssponge bath, Pt engaged in UB and face sponge bath with set up. Dependent don/doff LSO. Toileting: Maximum Assistance. required max A with gown manag, perineal care, cath care, Toilet Transfer: Minimal Assistance/modA and X 1. with use of RW and hand placemenet. Demo'd unsteadiness. BALANCE: Sitting Balance: Stand By Assistance. good sitting balance on toilet Standing Balance: Minimal Assistance, Moderate Assistance. demo'd unsteadiness BED MOBILITY: Sit to Supine: Minimal Assistance with BLE's to adhere to back precautions TRANSFERS: Sit to Stand: Moderate Assistance, X 1. with vc's for hand placements Stand to Sit: Minimal Assistance, Moderate Assistance. x1 with vc's for hand placements FUNCTIONAL MOBILITY: Assistive Device: Rolling Walker Assist Level: Minimal Assistance and X 1. Distance: From chair to BSC to Bed ASSESSMENT: Activity Tolerance: Patient tolerance of treatment: good. Discharge Recommendations: Inpatient Rehabilitation Equipment Recommendations: Equipment Needed: Yes Other: continue to assess needs Plan: Times per Week: 5x Times per Day: Daily Patient Education Patient Education: Role of OT, Plan of Care, ADL's and Precautions Goals Short Term Goals Time Frame for Short term goals: by discharge Short Term Goal 1: Pt will complete functional mobility to/from bathroom with SBA and no LOB or safety cues to increase indep with ADLs Short Term Goal 2: Pt will tolerate dynamic standing x5min with SBA and B hand release to increase indep with grooming Short Term Goal 3: Pt will complete LB ADLs with LHAE prn and 0-2 VC for back precautions to increase indep with dressing Short Term Goal 4: Pt will complete sit to stand t/fs with CGA and min VC for safety to increase indep with toileting Following session, patient left in safe position with all fall risk precautions in place. * Evelina Parra MD - 02/11/2022 10:48 AM EDT INTERNAL MEDICINE Progress Note 02/11/2022 10:48 AM Subjective: Admit Date: 02/07/2022 PCP: ELLEN CRABTREE, Interval History: S/p lumbar decompression with post op hypotension, improved bp on midodrine, solucortef Objective: Vitals: BP 105/76 Pulse 71 Temp 97.9 F (36.6 C) (Oral) Resp 16 Ht 5' 10 (1.778 m) Wt 240lb (108.9 kg) SpO2 95% BMI 34.44 kg/m General appearance: alert and cooperative with exam HEENT: atraumatic Neck: no JVD Lungs: clear to auscultation bilaterally Heart: S1, S2 normal Abdomen: soft, non-tender; bowel sounds normal; no masses, no organomegaly Extremities: no edema, Neurologic: Alert, oriented, thought content appropriate Medications: Scheduled Meds: midodrine 15 mg Oral TID WC hydrocortisone sodium succinate PF 50 mg IntraVENous Q8H acarbose 25 mg Oral TID WC atorvastatin 10 mg Oral Nightly mometasone-formoterol 2 puff Inhalation BID DULoxetine 60 mg Oral Nightly metFORMIN 500 mg Oral BID WC pantoprazole 40 mg Oral Daily QUEtiapine 25 mg Oral Nightly tamsulosin 0.8 mg Oral Nightly topiramate 100 mg Oral Daily sodium chloride flush 5-40 mL IntraVENous 2 times per day polyethylene glycol 17 g Oral Daily bisacodyl 5 mg Oral Daily sennosides-docusate sodium 1 tablet Oral BID carbidopa-levodopa 1 tablet Oral 4x Daily And carbidopa-levodopa 2 tablet Oral BID carbidopa-levodopa 1 tablet Oral TID And carbidopa-levodopa 2 tablet Oral BID insulin lispro 0-6 Units SubCUTAneous TID WC insulin lispro 0-3 Units SubCUTAneous Nightly tolterodine 4 mg Oral Daily pregabalin 300 mg Oral BID ezetimibe 10 mg Oral Nightly Continuous Infusions: DOPamine Stopped (02/10/22 1435) sodium chloride sodium chloride 75 mL/hr at 02/10/222009 Lab Results: CBC: Recent Labs 02/08/22 1638 02/09/22 0443 02/11/22 0440 WBC 6.2 6.3 5.7 HGB 10.2* 10.8* 9.8* PLT 89* 98* 122* BMP: Recent Labs 02/08/22 1638 NA 138 K 4.3 CL 108 CO2 21* BUN 12 CREATININE 1.0 GLUCOSE 112* HgBA1c: Lab Results Component Value Date LABA1C 5.3 01/23/2022 Ref. Range 02/09/2022 05:50 02/09/2022 11:55 02/09/2022 12:28 02/09/2022 13:30 CORTISOL Latest Units: ug/dL 4.35 7.85 15.55 21.14 Cortisol Collection Info Unknown AM Specimen Baseline 30 Minute 60 Minute Assessment and Plan: 1. L2-S1 degenerative disc disease with neuroforaminal stenosis s/p L2-S1 decompression and fusion with L4-S1 revision decompression 2. HLD 3. PD 4. DM2 5. COPD 6. Acute resp failure postop, better, on RA 7. Thrombocytopenia -better 8. Parkinson's dx, on sinemet 9. ? Adrenal insufficiency, low am cortisol but ACTH stimulation showed appro response >18ug/dl -consult endocrine and f/up on recommendations - cont solucortef in the interim --cont midodrine Evelina Parra MD, * Don Singh PA-C - 02/11/2022 7:25 AM EDT Department of Orthopedic Surgery Spine Service Attending Progress Note Subjective: Patient doing well, sitting up in chair. No BM. Reports leg feel stiff and dizziness when trying to get up. Vitals VITALS: BP 102/67 Pulse 62 Temp 97.3 F (36.3 C) (Axillary) Resp 18 Ht 5' 10 (1.778 m) Wt240 lb (108.9 kg) SpO2 93% BMI 34.44 kg/m 24HR INTAKE/OUTPUT: Intake/Output Summary (Last 24 hours) at 02/11/2022 0725 Last data filed at 02/11/2022 0307 Gross per 24 hour Intake 1195.14 ml Output 1891 ml Net -695.86 ml URINARY CATHETER OUTPUT (Carrington): [REMOVED] Urinary Catheter-Output (mL): 250 mL External Urinary Catheter-Output (mL): 700 mL DRAIN/TUBE OUTPUT: Closed/Suction Drain Left Accordion-Output (ml): 3 ml Closed/Suction Drain Right Accordion-Output (ml): 30 ml PHYSICAL EXAM: Orientation: alert and oriented to person, place and time Incision: dressing in place, clean, dry, intact Lower Extremity Motor : extensor hallucis longus, dorsiflexion, plantarflexion 4-5/5 bilaterally except Lower Extremity Sensory: Intact L1-S1 Flatus: positive ABNORMAL EXAM FINDINGS: none LABS: HgB: Lab Results Component Value Date HGB 9.8 02/11/2022 ASSESSMENT AND PLAN: Post operative day 4 status post L2-S1 decompression and fusion with L4-S1 revision decompression 1: Monitor labs and drain output 2: Activity Level: As tolerated 3: Pain Control: good 4: Discharge Planning: pending 5: IM following for hypotension, cardiology consulted and echo ordered. Endocrine consulted for possible adrenal insufficiency Don Singh PAC * Evelina Parra MD - 02/10/2022 6:58 PM EDT INTERNAL MEDICINE Progress Note 02/10/2022 6:58 PM Subjective: Admit Date: 02/07/2022 PCP: ELLEN CRABTREE DO Interval History: LEVY. Events noted S/p lumbar decompression with post op hypotension Treated with midodrine, steroid on suspicion of adrenal insuff Objective: Vitals: BP (!) 146/91 Pulse 51 Temp 98.3 F (36.8 C) (Oral) Resp 18 Ht 5' 10 (1.778 m) Wt240 lb (108.9 kg) SpO2 91% BMI 34.44 kg/m General appearance: alert and cooperative with exam HEENT: Head: atraumatic Neck: no adenopathy, no carotid bruit and no JVD Lungs: clear to auscultation bilaterally Heart: S1, S2 normal Abdomen: soft, non-tender; bowel sounds normal; no masses, no organomegaly Extremities: no edema, redness or tenderness in the calves or thighs Neurologic: Mental status: Alert, oriented, thought content appropriate Medications: Scheduled Meds: midodrine 15 mg Oral TID WC hydrocortisone sodium succinate PF 100 mg IntraVENous Q8H acarbose 25 mg Oral TID WC atorvastatin 10 mg Oral Nightly mometasone-formoterol 2 puff Inhalation BID DULoxetine 60 mg Oral Nightly metFORMIN 500 mg Oral BID WC pantoprazole 40 mg Oral Daily QUEtiapine 25 mg Oral Nightly tamsulosin 0.8 mg Oral Nightly topiramate 100 mg Oral Daily sodium chloride flush 5-40 mL IntraVENous 2 times per day polyethylene glycol 17 g Oral Daily bisacodyl 5 mg Oral Daily sennosides-docusate sodium 1 tablet Oral BID carbidopa-levodopa 1 tablet Oral 4x Daily And carbidopa-levodopa 2 tablet Oral BID carbidopa-levodopa 1 tablet Oral TID And carbidopa-levodopa 2 tablet Oral BID insulin lispro 0-6 Units SubCUTAneous TID WC insulin lispro 0-3 Units SubCUTAneous Nightly tolterodine 4 mg Oral Daily pregabalin 300 mg Oral BID ezetimibe 10 mg Oral Nightly Continuous Infusions: DOPamine Stopped (02/10/22 1438) sodium chloride sodium chloride 150 mL/hr at 02/10/22 1649 Lab Results: CBC: Recent Labs 02/08/22 0939 02/08/22 1638 02/09/22 0443 WBC -- 6.2 6.3 HGB 11.4* 10.2* 10.8* PLT -- 89* 98* BMP: Recent Labs 02/08/22 0551 02/08/22 1638 NA 137 138 K 3.8 4.3 CL 109 108 CO2 22* 21* BUN 12 12 CREATININE 0.8 1.0 GLUCOSE 104 112* HgBA1c: Lab Results Component Value Date LABA1C 5.3 01/23/2022 Ref. Range 02/09/2022 05:50 02/09/2022 11:55 02/09/2022 12:28 02/09/2022 13:30 CORTISOL Latest Units: ug/dL 4.35 7.85 15.55 21.14 Cortisol Collection Info Unknown AM Specimen Baseline 30 Minute 60 Minute Assessment and Plan: 1. L2-S1 degenerative disc disease with neuroforaminal stenosis s/p L2-S1 decompression and fusion with L4-S1 revision decompression 2. HLD 3. PD 4. DM2 5. COPD 6. Acute resp failure postop 7. Thrombocytopenia -am labs, b12/ folate, tsh 8. Parkinson's dx, on sinemet 9. ? Adrenal insufficiency, low am cortisol but ACTH stimulation showed appro response >18ug/dl -consult endocrine - cont solucortef in the interim --cont midodrine Am labs SCD. Evelina Parra MD, MD * Stefania Lagunas RD, LD - 02/10/2022 4:46 PM EDT Comprehensive Nutrition Assessment Type and Reason for Visit: Initial,Positive Nutrition Screen (unplanned wt loss poor po/appetite) Nutrition Recommendations/Plan: Continue current diet. Send Matt BID . Consider MVI. Malnutrition Assessment: Malnutrition Status: At risk for malnutrition (Comment) (02/10/22 1645) Context: Acute Illness Findings of the 6 clinical characteristics of malnutrition: Energy Intake: No significant decrease in energy intake Weight Loss: (4.8% wt loss in 18 days however now eating 76-100%) Body Fat Loss: No significant body fat loss Muscle Mass Loss: No significant muscle mass loss Fluid Accumulation: Mild Extremities Spindle Frame Carver Strength: Not Performed Nutrition Assessment: Pt. nutritionally compromised AEB wounds. At risk for further nutrition compromise r/t increased nutrient needs for wound healing,admit for lumbar stenosis with Neurogenic claudication, s/p (02/07) L2-S1 decompression & fusion with L4-S1 revision decompression underlying medical condition (Cancer Esophagus, lymph node neck, DM, HLD, Parkinson's, Hypotension). Nutrition Related Findings: Pt. Report/Treatments/Miscellaneous: Pt seen ~1100, good appetite eating 100% per pt. Requests diabetes diet education. Doesn't read labels. Tends to consume 3 meals/day. Tends to consume 20 ounces regular pepsi/day. Doesn't snack on regular basis. GI Status: no BM Pertinent Labs: (02/09) Hemoglobin 10.8, (02/08) Ca 7.8, Hemoglobin 10.2 Pertinent Meds: Dulcolax, Zetia, Solu-Cortef, Humalog low dose corrective algorithm, Glycolax, Senokot S, Dulcolax. Wound Type: (scabbed area on left great toe, incision back medial lower, wound sacrum DTI, unstageable wound toe anterior left blackened area on tip of left great toe) Current Nutrition Intake & Therapies: Average Meal Intake: 76-100% ADULT DIET; Regular; 4 carb choices (60 gm/meal) ADULT ORAL NUTRITION SUPPLEMENT; Breakfast, Dinner; Wound Healing Oral Supplement Anthropometric Measures: Height: 5' 10 (177.8 cm) [place] Body Weight (IBW): 166 lbs (75 kg) Admission Body Weight: 199 lb (90.3 kg) ((02/07) trace LLE & RLE edema) Current Body Weight: 240 lb (108.9 kg) ((02/09) + 1nonpitting RUE, LUE, RLE, LLE edema), IBW. Current BMI (kg/m2): 34.4 Usual Body Weight: (per EMR: (01/23) 209# 7oz) BMI Categories: Obese Class 1 (BMI 30.0-34.9) Estimated Daily Nutrient Needs: Energy Requirements Based On: Kcal/kg Energy (kcal/day): 1625-1806kcals (18-20kcals/kgm) Weight Used for Protein Requirements: [place] Protein (g/day): 105-150 grams (1.4-2 grams protein/kgm IBW) Nutrition Diagnosis: Increased nutrient needs related to increase demand for energy/nutrients as evidenced by wounds Nutrition Interventions: Food and/or Nutrient Delivery: Continue Current Diet,Start Oral Nutrition Supplement Nutrition Education/Counseling: Education needed (Encouraged lean protein choice with each meal during LOS.) Coordination of Nutrition Care: Continue to monitor while inpatient Goals: Previous Goal Met: (new goal) Goals: Meet at least 75% of estimated needs,Teach back diet education,prior to discharge Nutrition Monitoring and Evaluation: Behavioral-Environmental Outcomes: Knowledge or Skill Food/Nutrient Intake Outcomes: Diet Advancement/Tolerance,Food and Nutrient Intake,Supplement Intake Physical Signs/Symptoms Outcomes: Biochemical Data,GI Status,Fluid Status or Edema,Hemodynamic Status,Nutrition Focused Physical Findings,Skin,Weight Discharge Planning: Too soon to determine Stefania Lagunas RD, LD Contact: * FARRAH Mora CNP - 02/10/2022 3:44 PM EDT Physician Progress Note PATIENT: ALISIA CORREA [facility] #: [id number] : 1960 ADMIT DATE: 02/07/2022 8:09 AM DISCH DATE: RESPONDING PROVIDER #: MARIELENA MUSTAFA QUERY TEXT: Pt admitted with lumbar stenosis s/p surgery. Pt noted to have acute hypotension requiring IVF boluses and Dopamine gtt. If possible, please document in the progress notes and discharge summary if you are evaluating and/or treating any of the following: The medical record reflects the following: Risk Factors: s/p surgery, EBL 800 Clinical Indicators: BP's 91/52, 70/45, 78/46, 68/44, 70/46, 73/44, 84/47, 64/36, 70/42, 79/50 Treatment: 2500 ml in IVF boluses, continuous IVF, Dopamine gtt, Midodrine dose increased, transfer to stepdown unit Thank you! Ronny Salcedo, FARIBAN,RN, CRCR RN Clinical Drug Abuse Worker P: [phone] Options provided: -- Hypovolemic Shock -- Hypovolemia without Shock -- Hypotension without Shock -- Other - I will add my own diagnosis -- Disagree - Not applicable / Not valid -- Disagree - Clinically unable to determine / Unknown -- Refer to Clinical Documentation Reviewer PROVIDER RESPONSE TEXT: This patient has hypotension without shock. Query created by: Ronny Salcedo on 02/10/2022 12:24 PM Electronically signed by: MARIELENA MUSTAFA 02/10/2022 3:43 PM * Margoth PeaceHOLLY - 02/10/2022 2:42 PM EDT [facility] [place] ICU STEPDOWN TELEMETRY 4K Occupational Therapy Daily Note Time: Time In: 1358 Time Out: 1421 Timed Code Treatment Minutes: 23 Minutes Minutes: 23 Date: 02/10/2022 Patient Name: Alisia Correa, Gender: male [facility] : 1960 (61 y.o.) Referring Practitioner: Maki Reed PA-C Diagnosis: Lumbar stenosis with neurogenic claudication Additional Pertinent Hx: Per HPI: The patient is a 61 y.o. male who presents with above chief complaint. Constant stabbing pain in the low back that radiates down the posterior legs to the feet andtoes. Pt also c/o intermittent shooting pains down the legs posteriorly. He c/o numbness throughoutbilateral legs with tingling in b/l feet. He has had multiple neck and back surgeries and has a spin al cord stimulator. 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 Symptoms have been progressively worsening. Current VAS score 7/10. 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 He states incontinence has been progressively worsening over the last 6 months or so, now occurring with saddle anesthesia/complete loss of sensation during urinationand bowel movements. Percentage noriega, pt's pain occurs 50% in the back and 50% in the legs. As it pe rtains to the legs 50% right and 50% left. Pt is s/p L2-S1 DECOMPRESSION L2-S1 POSTERIOR FUSION WITH ILIAC BOLTS, L5-S1 TLIF by Dr. Loza. Restrictions/Precautions: Restrictions/Precautions: General Precautions,Fall Risk Required Braces or Orthoses Spinal: Lumbar Corset Other: Abdominal Binder Position Activity Restriction Spinal Precautions: No Bending,No Lifting,No Twisting Other position/activity restrictions: hx PD; monitor BP SUBJECTIVE: Pt laying in bed upon arrival, pt agreeable to OT session, RN gave verbal approval for session, pt's present during session. Pt and inquiring about IP rehab this date. PAIN: 6/10: with pt then rating pain 8/10 at the EOS Vitals: Blood Pressure: 111/70 with pt laying in bed with the HOB elevated, pt then dropped to 91/79 when standing with RN adbised COGNITION: Slow Processing ADL: Upper Extremity Dressing: Minimal Assistance. with donning corset around back, and for donning gownaround back. BALANCE: Standing Balance: Contact Guard Assistance. with pt using RW for support, and BUE support on walkerfor 1 minute BED MOBILITY: Supine to Sit: Moderate Assistance with HOB elevated, and good adherence to back precautions TRANSFERS: Sit to Stand: Minimal Assistance. from the EOB Stand to Sit: Minimal Assistance. to recliner FUNCTIONAL MOBILITY: Assistive Device: Rolling Walker Assist Level: Contact Guard Assistance. Distance: from the EOB to the recliner ASSESSMENT: Activity Tolerance: Patient tolerance of treatment: good. Discharge Recommendations: Inpatient Rehabilitation Equipment Recommendations: Equipment Needed: Yes Other: continue to assess needs Plan: Times per Week: 5x Times per Day: Daily Patient Education Patient Education: Precautions Goals Short Term Goals Time Frame for Short term goals: by discharge Short Term Goal 1: Pt will complete functional mobility to/from bathroom with SBA and no LOB or safety cues to increase indep with ADLs Short Term Goal 2: Pt will tolerate dynamic standing x5min with SBA and B hand release to increase indep with grooming Short Term Goal 3: Pt will complete LB ADLs with LHAE prn and 0-2 VC for back precautions to increase indep with dressing Short Term Goal 4: Pt will complete sit to stand t/fs with CGA and min VC for safety to increase indep with toileting Following session, patient left in safe position with all fall risk precautions in place. * Chad Kilgore PA-C - 02/10/2022 12:52 PM EDT Cardiology Progress Note Patient: Alisia Correa Date of : 1960 Acct: [id number] Admit Date: 02/07/2022 Primary Continuous Improvement Black Belt: none Per Dr Schrader's note: REASON FOR CONSULTATION: Hypotension. HISTORY OF PRESENT ILLNESS: This is a 61-year-old gentleman who was admitted to the hospital on 02/06/2022 for lumbosacral degenerative disk disease with neuroforaminal stenosis and for L2 to S1 decompression and fusion. The patient had a surgical management basically L2 to S1 decompression and fusion and L4 to S1 revision of decompression was performed on 02/07/2022. Yesterday, the patient became hypotensive, blood pressure of 70/40s and bolus of IV fluid has been given and the blood pressure remained low. The patient became diaphoretic, dizzy, lightheaded, and did not pass out. So, rapid response was initiated and the patient was started on dopamine and transferred to step down. The blood pressure went as low as 70/45. The patient feels better today with dopamine drip of 10 mcg/kg per minute, blood pressure well maintained. Cardiology evaluation was sought in view of the hypotension. The patient has been well hydrated and the patient stated that he has been having chronic hypotension for over two years after he started the Parkinson's medications, was feeling dizzy on standing for a long time and he has been on midodrine, and he passed out sometime in 11/2021 actually. The syncope was associated with warning symptom of dizziness. Hence, Cardiology evaluation was sought. He denied having any chest pain. No shortness of breath. No orthopnea or paroxysmal nocturnal dyspnea. No fever or chills. Serum cortisol was checked. The serum cortisol was low and so ACTH stimulation testing is to be done today and then going to be started on steroid, Solu-Cortef. Subjective (Events in last 24 hours): Pt awake, alert. NAD. States he is dizziness occasionally with getting up but otherwise, feels well, denies cp, sob. Will check on echo completed today. Still on low dose dopamine, looking to stop. gustabo presures have been roughly 100/60s ( map in the 70s) on dopamine, solu-cortef. Adrenal issues seem to be his biggest issue, will let attending team manage and address. Objective: BP 109/71 Pulse 64 Temp 97.5 F (36.4 C) (Oral) Resp 18 Ht 5' 10 (1.778 m) Wt 240 lb (108.9 kg) SpO2 92% BMI 34.44 kg/m bp on lower side TELEMETRY: nsr Physical Exam: General Appearance: alert and oriented to person, place and time, in no acute distress Cardiovascular: normal rate, regular rhythm, normal S1 and S2, no murmurs, rubs, clicks, or gallops, distal pulses intact, no carotid bruits, no JVD Pulmonary/Chest: clear to auscultation bilaterally- no wheezes, rales or rhonchi, normal air movement, no respiratory distress Abdomen: soft, non-tender, non-distended, normal bowel sounds, no masses Extremities: no cyanosis, clubbing or edema, pulse Skin: warm and dry, no rash or erythema Neurological: alert, oriented, normal speech, no focal findings or movement disorder noted Medications: midodrine 15 mg Oral TID WC hydrocortisone sodium succinate PF 100 mg IntraVENous Q8H acarbose 25 mg Oral TID WC atorvastatin 10 mg Oral Nightly mometasone-formoterol 2 puff Inhalation BID DULoxetine 60 mg Oral Nightly metFORMIN 500 mg Oral BID WC pantoprazole 40 mg Oral Daily QUEtiapine 25 mg Oral Nightly tamsulosin 0.8 mg Oral Nightly topiramate 100 mg Oral Daily sodium chloride flush 5-40 mL IntraVENous 2 times per day polyethylene glycol 17 g Oral Daily bisacodyl 5 mg Oral Daily sennosides-docusate sodium 1 tablet Oral BID carbidopa-levodopa 1 tablet Oral 4x Daily And carbidopa-levodopa 2 tablet Oral BID carbidopa-levodopa 1 tablet Oral TID And carbidopa-levodopa 2 tablet Oral BID insulin lispro 0-6 Units SubCUTAneous TID WC insulin lispro 0-3 Units SubCUTAneous Nightly tolterodine 4 mg Oral Daily pregabalin 300 mg Oral BID ezetimibe 10 mg Oral Nightly DOPamine 1.5 mcg/kg/min (02/10/22 1202) sodium chloride sodium chloride 150 mL/hr at 02/10/22 1008 traMADol, 50 mg, Q6H PRN albuterol sulfate HFA, 1 puff, PRN sodium chloride flush, 5-40 mL, PRN sodium chloride, , PRN acetaminophen, 650 mg, Q6H PRN ondansetron, 4 mg, Q8H PRN Or ondansetron, 4 mg, Q6H PRN cyclobenzaprine, 10 mg, TID PRN bisacodyl, 10 mg, Daily PRN fleet, 1 enema, Daily PRN oxyCODONE-acetaminophen, 1 tablet, Q6H PRN Or oxyCODONE-acetaminophen, 1 tablet, Q6H PRN morphine, 2 mg, Q4H PRN Diagnostics: EKG: Sinus bradycardia Otherwise normal ECG When compared with ECG of 23-JAN-2022 11:32, No significant change was found Confirmed by SUSAN CARRION ([id number]) on 02/08/2022 Echo: Stress: Left Heart Cath: Lab Data: Cardiac Enzymes: No results for input(s): CKTOTAL, CKMB, CKMBINDEX, TROPONINI in the last 72 hours. CBC: Lab Results Component Value Date WBC 6.3 02/09/2022 RBC 3.58 02/09/2022 HGB 10.8 02/09/2022 HCT 34.3 02/09/2022 PLT 98 02/09/2022 CMP: Lab Results Component Value Date NA 138 02/08/2022 K 4.3 02/08/2022 CL 108 02/08/2022 CO2 21 02/08/2022 BUN 12 02/08/2022 CREATININE 1.0 02/08/2022 GFRAA >60 08/22/2013 LABGLOM 75 02/08/2022 GLUCOSE 112 02/08/2022 CALCIUM 7.8 02/08/2022 Hepatic Function Panel: Lab Results Component Value Date ALKPHOS 113 08/22/2013 ALT 16 08/22/2013 AST 19 08/22/2013 PROT 8.0 08/22/2013 BILITOT 0.20 08/22/2013 LABALBU 4.4 08/22/2013 Magnesium: No results found for: MG PT/INR: Lab Results Component Value Date INR 1.06 01/23/2022 HgBA1c: Lab Results Component Value Date LABA1C 5.3 01/23/2022 FLP: No results found for: TRIG, HDL, LDLCALC, LDLDIRECT, LABVLDL TSH: No results found for: TSH Assessment: S/p L2-S1 decompression Hypotension-improved with Midodrine, etc. Chronic hypotension--worse now Low AM cortisol--being worked up for adrenal issues HLD Parkinson's--on carbidopa-levidopa--states his BP issues started once he started on this medication DM COPD Plan: BP is close to goal to wean off dopamine. Will increase midodrine to 15 mg TID in hopes to get systolic above 100 and MAP>65 (it has been consistently). If BP remains stable and echo is WNL/no major concerns, cardiology will see PRN. If concerns found on echo, will reassess. F/u with Dr Schrader in 6-8 weeks. * Lyn Prince - 02/10/2022 12:06 PM EDT Echocardiogram complete at bedside. * Adali Calix PTA - 02/10/2022 9:53 AM EDT [facility] INPATIENT PHYSICAL THERAPY DAILY NOTE [facility] ICU STEPDOWN TELEMETRY - -A Time In: 08 Time Out: 902 Timed Code Treatment Minutes: 45 Minutes Minutes: 45 Date: 02/10/2022 Patient Name: Alisia Correa, Gender: male : 1960 (61 y.o.) Referring Practitioner: Davion Reed PA-C Diagnosis: lumbar stenosis with neurogenic claudication Additional Pertinent Hx: Per HPI: The patient is a 61 y.o. male who presents with above chief complaint. Constant stabbing pain in the low back that radiates down the posterior legs to the feet andtoes. Pt also c/o intermittent shooting pains down the legs posteriorly. He c/o numbness throughoutbilateral legs with tingling in b/l feet. He has had multiple neck and back surgeries and has a spin al cord stimulator. 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 Symptoms have been progressively worsening. Current VAS score 7/10. 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 He states incontinence has been progressively worsening over the last 6 months or so, now occurring with saddle anesthesia/complete loss of sensation during urinationand bowel movements. Percentage noriega, pt's pain occurs 50% in the back and 50% in the legs. As it pe rtains to the legs 50% right and 50% left. Pt is s/p L2-S1 DECOMPRESSION L2-S1 POSTERIOR FUSION WITH ILIAC BOLTS, L5-S1 TLIF by Dr. Loza. 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 Patient laying in bed upon arrival and agreeable to therapy. Patient requested to use BSC during session. PAIN: 03/28: back Vitals: Vitals not assessed per clinical judgement, see nursing flowsheet OBJECTIVE: Bed Mobility: Rolling to Left: Minimal Assistance, with head of bed raised, with rail, with verbal cues , with increased time for completion, cues for log roll Supine to Sit: Moderate Assistance, with head of bed raised, with verbal cues , with increased timefor completion Scooting: Contact Guard Assistance, to edge of bed upon sitting edge of bed patient's IV disconnected and required extra time for clean-up and nursing assist. Transfers: Sit to Stand: Moderate Assistance, with increased time for completion, cues for hand placement, with verbal cues, first stand from bed therapist blocked left knee upon standing Stand to Sit:Contact Guard Assistance, with increased time for completion, with verbal cues Stand Pivot:Minimal Assistance, with increased time for completion, with verbal cues, bed>BSC, used RW Ambulation: Minimal Assistance Distance: 2ft BSC>chair Surface: Level Tile Device:Rolling Walker Gait Deviations: Forward Flexed Posture, Slow Adriana, Decreased Step Length Bilaterally, DecreasedGait Speed, Decreased Heel Strike Bilaterally, Unsteady Gait and Decreased Terminal Knee Extension Balance: Static Sitting Balance: Stand By Assistance, edge of bed ~6min Exercise: Patient was guided in 1 set(s) 10 reps of exercise to both lower extremities. Ankle pumps, Glut sets, Quad sets, Heelslides, Hip abduction/adduction and Straight leg raises. Exercises were completed for increased independence with functional mobility. Functional Outcome Measures: Completed AM-[facility] Inpatient Mobility Raw Score : 12 AM-[facility] Inpatient T-Scale Score : 35.33 ASSESSMENT: Assessment: Patient progressing toward established goals. Activity Tolerance: Patient tolerance of treatment: good. Equipment Recommendations:Equipment Needed: No Discharge Recommendations: Inpatient Rehabilitation, Patient would benefit from continued PT at discharge and Inpatient Therapy Stay Plan: Current Treatment Recommendations: Strengthening,Balance training,Functional mobility training,Transfer training,Neuromuscular re- education,Pain management,Patient/Caregiver education & haim noreen,Positioning,Safety education & training,Gait training,Endurance training Plan Comment: 6 x O Plan: (6 x O) Patient Education Patient Education: Plan of Care, Precautions/Restrictions, Bed Mobility, Transfers, Up in Chair forAll Meals, Verbal Exercise Instruction Goals: Patient goals : return home Short Term Goals Time Frame for Short term goals: by hospital discharge Short term goal 1: Roll to L and to R with modified independence for ease of bed mobility. Short term goal 2: Supine to/from sit with CGA x 1 for ease of getting in/OOB. Short term goal 3: Sit to/from stand with CGA x 1 in preparation for ambulation. Short term goal 4: Ambulate 20' with RW and CGA x1 to navigate home distances. Additional Goals?: No Fdc Goals Time Frame for FPC goals : N/A due to short ELOS Following session, patient left in safe position with all fall risk precautions in place. * SHRAVAN Pressley - 02/10/2022 7:28 AM EDT Department of Orthopedic Surgery Spine Service Attending Progress Note Subjective: Patient doing okay this morning, reports his legs feel stiff, radicular symptoms improved. Denies new N/T. No issues voiding. No BM. Cardiology consulted for persistent hypotension. Reports dizziness when trying to get up. Denies chest pain or shortness of breath Vitals VITALS: BP 112/74 Pulse 57 Temp 97.4 F (36.3 C) (Oral) Resp 20 Ht 5' 10 (1.778 m) Wt 240lb (108.9 kg) SpO2 98% BMI 34.44 kg/m 24HR INTAKE/OUTPUT: Intake/Output Summary (Last 24 hours) at 02/10/2022 0728 Last data filed at 02/10/2022 0547 Gross per 24 hour Intake 1749.55 ml Output 3650 ml Net -1900.45 ml URINARY CATHETER OUTPUT ([place]): [REMOVED] Urinary Catheter-Output (mL): 250 mL External Urinary Catheter-Output (mL): 250 mL DRAIN/TUBE OUTPUT: Closed/Suction Drain Left Accordion-Output (ml): 5 ml Closed/Suction Drain Right Accordion-Output (ml): 40 ml PHYSICAL EXAM: Orientation: alert and oriented to person, place and time Incision: dressing in place, clean, dry, intact Lower Extremity Motor : extensor hallucis longus, dorsiflexion, plantarflexion 4-5/5 bilaterally except Lower Extremity Sensory: Intact L1-S1 Flatus: positive ABNORMAL EXAM FINDINGS: none LABS: HgB: Lab Results Component Value Date HGB 10.8 02/09/2022 ASSESSMENT AND PLAN: Post operative day 3 status post L2-S1 decompression and fusion with L4-S1 revision decompression 1: Monitor labs and drain output 2: Activity Level: As tolerated 3: Pain Control: good 4: Discharge Planning: pending 5: IM following for hypotension, cardiology consulted Don Singh PAC * Don Singh PA-C - 02/09/2022 10:11 AM EDT Department of Orthopedic Surgery Spine Service Attending Progress Note Subjective: Patient transferred to ICU stepdown yesterday for hypotension. Patient on dopamine dripand BP improved to 114/56. Wean as able today. Patient c/o lumbar pain. No radicular pain. No BM Vitals VITALS: BP (!) 114/56 Pulse 69 Temp 98.5 F (36.9 C) (Axillary) Resp 16 Ht 5' 10 (1.778 m) Wt 240 lb (108.9 kg) SpO2 95% BMI 34.44 kg/m 24HR INTAKE/OUTPUT: Intake/Output Summary (Last 24 hours) at 02/09/2022 1011 Last data filed at 02/09/2022 0515 Gross per 24 hour Intake Output 3145 ml Net -3145 ml URINARY CATHETER OUTPUT (Carrington): Urinary Catheter-Output (mL): 1300 mL DRAIN/TUBE OUTPUT: Closed/Suction Drain Left Accordion-Output (ml): 0 ml Closed/Suction Drain Right Accordion-Output (ml): 40 ml PHYSICAL EXAM: Orientation: alert and oriented to person, place and time Incision: dressing in place, clean, dry, intact Lower Extremity Motor : extensor hallucis longus, dorsiflexion, plantarflexion 4-5/5 bilaterally except Lower Extremity Sensory: Intact L1-S1 Flatus: positive ABNORMAL EXAM FINDINGS: none LABS: HgB: Lab Results Component Value Date HGB 10.8 02/09/2022 ASSESSMENT AND PLAN: Post operative day 2 status post L2-S1 decompression and fusion with L4-S1 revision decompression 1: Monitor labs and drain output 2: Activity Level: As tolerated 3: Pain Control: good 4: Discharge Planning: pending 5: Remove carrington 6: IM following for hypotension Don Singh PAC * Don Singh PA-C - 02/09/2022 9:56 AM EDT Physician Progress Note PATIENT: ALISIA CORREA CSN #: [id number] : 1960 ADMIT DATE: 02/07/2022 8:09 AM DISCH DATE: RESPONDING PROVIDER #: DON SINGH PA-C QUERY TEXT: Pt admitted with L2-S1 degenerative disc disease with neuroforaminal stenosis and radiculopathy and L2-L4 central canal stenosis, and underwent surgery on 02/07. 02/07 IM note states, Acute resp failure postop. 02/07 @ 1439: 90% on RA...91% on 6 L; 02/07 @ 2116: weaned to RA; 02/08 @ 0900: 94% on 2 L. If possible, please respond below and document in the progress notes and discharge summary if you are evaluating and/or treating any of the following: The medical record reflects the following: Risk Factors: s/p surgery, COPD, asthma, smoker, sleep apnea, Parkinson's disease, age 61 Clinical Indicators: 02/07 IM note states, Acute resp failure postop. 02/07 @ 1439: 90% on RA...91% on 6 L; 02/07 @ 2116: weaned to RA; 02/08 @ 0900: 94% on 2 L; PICHARDO, expiratory wheezes Treatment: O2 via NC, Dulera Thank you! Nevaeh Goldsmith, RN, BSN, USER SUPPORT ANALYST, CCDS Clinical Drug Abuse Worker Options provided: -- Acute pulmonary insufficiency following surgery -- Acute respiratory failure unrelated to surgery, and due to, please specify. -- Acute respiratory failure due to the surgery -- Other - I will add my own diagnosis -- Disagree - Not applicable / Not valid -- Disagree - Clinically unable to determine / Unknown -- Refer to Clinical Documentation Reviewer PROVIDER RESPONSE TEXT: This patient has acute postoperative pulmonary insufficiency. Query created by: Nevaeh Goldsmith on 02/08/2022 10:47 AM Electronically signed by: DON SINGH PA-C 02/09/2022 9:55 AM * Marcos Jorgensen MD - 02/09/2022 8:22 AM EDT Progress note [facility] Patient: Alisia Correa Date of : 1960 Acct: [id number] -[id number] Primary Care Physician: ELLEN CRABTREE DO Admit Date: 02/07/2022 Subjective: Pt had to be transferred to stepdown requiring Dopamine. He is still on 10 of Dopamine.Has some dizziness/lightheadedness. No CP or SOB. Cortisol level low this AM. Objective: Physical Exam: Vitals:Patient Vitals for the past 24 hrs: BP Temp Temp src Pulse Resp SpO2 Weight 02/09/22 0723 14 95 % 02/09/22 0645 (!) 102/45 63 02/09/22 0600 (!) 104/48 61 16 95 % 02/09/22 0545 (!) 108/47 59 16 96 % 02/09/22 0515 (!) 116/53 60 16 94 % 240 lb (108.9 kg) 02/09/22 0430 (!) 117/52 61 16 94 % 02/09/22 0400 (!) 120/56 63 16 95 % 02/09/22 0310 97 % 02/09/22 0300 (!) 105/48 98.9 F (37.2 C) Axillary 61 16 02/09/22 0230 (!) 102/46 66 16 95 % 02/09/22 0145 (!) 95/47 57 16 02/09/22 0130 (!) 109/43 70 16 02/09/22 0045 (!) 122/53 02/09/22 0030 (!) 125/53 67 16 02/09/22 0000 (!) 128/54 62 16 02/08/22 2330 (!) 94/44 98.3 F (36.8 C) Axillary 60 16 97 % 02/08/22 2242 (!) 102/36 62 16 02/08/22 2200 (!) 108/41 61 16 02/08/225 (!) 99/43 62 16 02/08/222032 (!) 104/45 97.8 F (36.6 C) Oral 64 16 99 % 04/23/22 1722 98 % 02/08/22 1701 (!) 83/47 57 02/08/22 1645 (!) 75/51 02/08/22 1601 (!) 79/50 61 02/08/22 1557 (!) 80/52 57 02/08/22 1534 (!) 73/50 58 02/08/22 1524 (!) 81/55 97.5 F (36.4 C) Oral 58 14 02/08/22 1430 (!) 76/50 58 18 100 % 02/08/22 1330 (!) 70/42 02/08/22 1300 (!) 82/48 64 16 98 % 02/08/22 1220 (!) 64/36 73 99 % 02/08/22 1215 (!) 70/38 72 18 100 % 02/08/22 1119 (!) 84/47 65 16 02/08/22 1015 (!) 71/49 53 02/08/22 1000 (!) 65/41 57 02/08/22 0944 (!) 71/42 53 16 100 % 02/08/22 0935 (!) 71/41 54 16 02/08/22 0924 (!) 73/44 55 16 100 % 02/08/22 0922 (!) 70/46 02/08/22 0900 (!) 68/44 62 16 94 % 02/08/22 0825 (!) 78/46 97.5 F (36.4 C) Oral 55 16 93 % Weight: Weight: 240 lb (108.9 kg) 24 hour intake/output: Intake/Output Summary (Last 24 hours) at 02/09/2022 0824 Last data filed at 02/09/2022 0515 Gross per 24 hour Intake Output 3145 ml Net -3145 ml General appearance - alert, ill appearing, and in no distress Eyes - pupils equal and reactive, extraocular eye movements intact Ears - bilateral TM's and external ear canals normal Nose - normal and patent, no erythema, discharge or polyps Mouth - mucous membranes moist, pharynx normal without lesions Neck - supple, no significant adenopathy Lymphatics - no palpable lymphadenopathy, no hepatosplenomegaly Chest - mild rhonchi BL Distant Breath Sounds: No Heart - NSR, normal S1, S2, no murmurs, rubs, clicks or gallops Abdomen - soft, nontender, nondistended, no masses or organomegaly Obese: No; Protuberant: Yes Neurological - alert, oriented, normal speech, no focal findings or movement disorder noted Musculoskeletal - no joint tenderness, deformity or swelling, 2 lumbar drains draining serosanguineous drainage Extremities - peripheral pulses normal, mild peripheral edema Skin - clinically pale Review of Labs and Diagnostic Testing: CBC: Recent Labs 02/09/22 0443 WBC 6.3 HGB 10.8* HCT 34.3* MCV 95.8* PLT 98* BMP: Recent Labs 02/08/22 1638 NA 138 K 4.3 CL 108 CO2 21* BUN 12 CREATININE 1.0 CALCIUM 7.8* GLUCOSE 112* PT/INR: No results for input(s): PROTIME, INR in the last 72 hours. APTT: No results for input(s): APTT in the last 72 hours. Lipids: No results for input(s): ALKPHOS, ALT, AST, BILITOT, BILIDIR, LABALBU, AMYLASE, LIPASE in the last 72 hours. Troponin: No results for input(s): TROPONINT in the last 72 hours. Imaging: @[id number]@ EKG: Diet: ADULT DIET; Regular; 4 carb choices (60 gm/meal) Data: Scheduled Meds: Scheduled Meds: midodrine 7.5 mg Oral TID WC hydrocortisone sodium succinate PF 100 mg IntraVENous Q8H cosyntropin 250 mcg IntraVENous Once acarbose 25 mg Oral TID WC atorvastatin 10 mg Oral Nightly mometasone-formoterol 2 puff Inhalation BID DULoxetine 60 mg Oral Nightly metFORMIN 500 mg Oral BID WC pantoprazole 40 mg Oral Daily QUEtiapine 25 mg Oral Nightly tamsulosin 0.8 mg Oral Nightly topiramate 100 mg Oral Daily sodium chloride flush 5-40 mL IntraVENous 2 times per day polyethylene glycol 17 g Oral Daily bisacodyl 5 mg Oral Daily sennosides-docusate sodium 1 tablet Oral BID carbidopa-levodopa 1 tablet Oral 4x Daily And carbidopa-levodopa 2 tablet Oral BID carbidopa-levodopa 1 tablet Oral TID And carbidopa-levodopa 2 tablet Oral BID insulin lispro 0-6 Units SubCUTAneous TID WC insulin lispro 0-3 Units SubCUTAneous Nightly tolterodine 4 mg Oral Daily pregabalin 300 mg Oral BID ezetimibe 10 mg Oral Nightly Continuous Infusions: DOPamine 9.5 mcg/kg/min (02/09/22554) sodium chloride sodium chloride 150 mL/hr at 02/09/22554 PRN Meds:.traMADol, albuterol sulfate HFA, sodium chloride flush, sodium chloride, acetaminophen, ondansetron OR ondansetron, cyclobenzaprine, bisacodyl, fleet, oxyCODONE-acetaminophen OR oxyCODONE-acetaminophen, morphine Continuous Infusions: DOPamine 9.5 mcg/kg/min (02/09/22554) sodium chloride sodium chloride 150 mL/hr at 02/09/22554 Assessment 1. Chronic hypotension on Midodrine with acute drop in BP 2. L2-S1 degenerative disc disease with neuroforaminal stenosis s/p L2-S1 decompression and fusion with L4-S1 revision decompression 3. HLD 4. PD 5. DM2 6. COPD 7. Acute resp failure postop 8. ? Adrenal insufficiency Plan 1. Currently on Dopamine drip; wean as able 2. Cortisol low this AM--Cortrosyn stimulation test ordered; start on Solu- Cortef IV Q8h until results available 3. Midodrine dose increased 4. Monitor telemetry 5. Cont post op protocol 6. On room air now; CPAP at night (chronic) 7. PT/OT 8. Cont PD meds 9. DVT prophylaxis: SCDs Assessment and plan of care discussed with supervising physician, Dr Jorgensen. Pt seen and examined by me D/w Marielena Mustafa Pt did not respond to multiple fluid bolus and increase in midodrine yesterday and hence had to be transferred to stepdown for dopamine drip Pt this morning on 10mcg of dopamine Did ordered cortisol level Pt on midodrine for 3 months and was informed was sec to hs parkinson's Cortisol later came back at 4 even with dopamine on board Will check co syntropyn test and start him on steroids for possible adrenal iinsuff will consult endo depending on his results Midodrine also increased Wean dopamine F/u on Hb Heart S1 S2 heard and regular * Lizeth Castellano RN - 02/09/2022 1:22 AM EDT Patient states his hips hurt a little and his legs feel asleep. This nurse checked for feeling and movement bilaterally and patient those are intact. Patient range of motion with his legs is less than his baseline. Talked to Dr. Loza about patients Movements, output of his drains and his feeling of heavinessin his legs. Patient can still move his ankles wiggle his toe and provide downward force as well asfeel touch and pain. He can also slightly move his legs as well. If there is worsening or concern there is a possibility of an MRI. * Mauricio Ponce RN - 02/08/2022 3:38 PM EDT Pt admitted to 4K25 from 7K26. Complaints: Back pain. IV normal saline infusing into the wrist left, condition patent and no redness at a rate of 150 mls/ hour with about 200 mls in the bag still. IV site free of s/s of infection or infiltration. Vital signs obtained. Assessment and data collection initiated. Two nurse skin assessment performed by Mauricio Gomez RN and Jenae Crum RN. Oriented to room. Policies and procedures for explained. All questions answered with no further questions at this time. Fall prevention and safety brochure discussed with patient. Bed alarm on. Call light in reach. * Oumou Dominguez - 02/08/2022 3:00 PM EDT 912 Called Rapid Response due to continued low BP even after previous interventions. BP 68/44 HR 62 RR16 PO2 94% on 2LNC. 914 Rapid Response team arrived. Marielena Mustafa HAM CLERK at bedside. Saline bolus ordered and started. 921 BP 70/46 0923 Orders received. Start on telemetry monitoring, CXR, Increase Midodrine to TID, Stat H+H. 0937 Orders received. H+H at 1700, CBC in AM 1007 CXR at bedside. BP 64/45. Hgb 11.4. IM notified. 1023 BP continues to be low. 500mL saline bolus started 1141 BP 85/47 after bolus. Updated NOC ANALYST. 1218 BP 70/38, MD at bedside. Ordered to recheck manually in other arm and give another 500mL saline bolus. 1302 BP 82/48. MD notified, ordered to increase IVF to 150mL/hr and have resource assess and what they recommend. 1312 Resource reviewed chart and recommends transfer to ICU stepdown and starting a dopamine drip. 1329 Orders received. Transfer to ICU stepdown. Consult Cardiology. Patient made aware and contacted his . 1331 Dr. Schrader consulted * Oumou Dominguez - 02/08/2022 2:50 PM EDT Report given to Mauricio on 4K. Transport placed. * Jennifer Griffin OT - 02/08/2022 1:01 PM EDT [facility] INPATIENT OCCUPATIONAL THERAPY [facility] 7K EVALUATION Time: Time In: 1052 Time Out: 1110 Timed Code Treatment Minutes: 10 Minutes Minutes: 18 Date: 02/08/2022 Patient Name: Alisia Correa, Gender: male : 1960 (61 y.o.) Referring Practitioner: Maki Reed PA-C Diagnosis: Lumbar stenosis with neurogenic claudication Additional Pertinent Hx: Per HPI: The patient is a 61 y.o. male who presents with above chief complaint. Constant stabbing pain in the low back that radiates down the posterior legs to the feet andtoes. Pt also c/o intermittent shooting pains down the legs posteriorly. He c/o numbness throughoutbilateral legs with tingling in b/l feet. He has had multiple neck and back surgeries and has a spin al cord stimulator. 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 Symptoms have been progressively worsening. Current VAS score 7/10. 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 He states incontinence has been progressively worsening over the last 6 months or so, now occurring with saddle anesthesia/complete loss of sensation during urinationand bowel movements. Percentage noriega, pt's pain occurs 50% in the back and 50% in the legs. As it pe rtains to the legs 50% right and 50% left. Pt is s/p L2-S1 DECOMPRESSION L2-S1 POSTERIOR FUSION WITH ILIAC BOLTS, L5-S1 TLIF [address] Dr[address] Loza. Restrictions/Precautions: Restrictions/Precautions: General Precautions,Fall Risk Required Braces or Orthoses Spinal: Lumbar Corset Other: Abdominal Binder Position Activity Restriction Spinal Precautions: No Bending,No Lifting,No Twisting Other position/activity restrictions: hx PD; monitor BP Subjective Chart Reviewed: Yes,Orders,Progress Notes Patient assessed for rehabilitation services?: Yes Subjective: RN okayed session, reporting low BP and needing to return to bed from recliner. CARBON DIOXIDE OPERATOR present to assist. Pain: 3/10 Vitals: Blood Pressure: 70/38 upon arrival, improving after returned to bed; however, still critically low Social/Functional History: Lives With: Spouse Type of Home: House Home Layout: One level Home Access: Ramped entrance Home Equipment: Walker, rolling,Lift chair,Cane Bathroom Shower/Tub: Tub/Shower unit Bathroom Toilet: Handicap height Bathroom Equipment: Grab bars in shower ADL Assistance: Independent Homemaking Assistance: Independent Ambulation Assistance: Needs assistance Transfer Assistance: Needs assistance Active Manufacturing Engineer Assembly: No Additional Comments: pt states d/t PD, he requires assistance with transfers and ambulation; pt hadHH PT BARBER INSTRUCTOR VISION:WFL HEARING: WFL COGNITION: Slow Processing and Decreased Safety Awareness RANGE OF MOTION: Bilateral Upper Extremity: WFL STRENGTH: Bilateral Upper Extremity: Not Tested SENSATION: WFL ADL: Upper Extremity Dressing: Minimal Assistance. donning back brace. BALANCE: Sitting Balance: Contact Guard Assistance. Standing Balance: Contact Guard Assistance, X 1, + SBA x1 for safety d/t low BP. BED MOBILITY: Sit to Supine: Minimal Assistance, X 2 with increased time Scooting: Minimal Assistance, X 2 TRANSFERS: Sit to Stand: Minimal Assistance, X 2. from recliner, with increased time and VC Stand to Sit: Minimal Assistance, X 2. to EOB, with increased time and VC FUNCTIONAL MOBILITY: Assistive Device: Rolling Walker Assist Level: Minimal Assistance and X 1 and CGA x1. Distance: 3' from recliner to EOB Very slow pace, dizziness throughout, no LOB. Activity Tolerance: Patient tolerance of treatment: poor. Limited by BP Assessment: Assessment: Pt presented with the listed deficits s/p admission with hypokalemia. Pt with decreasedstrength, endurance, and activity tolerance and currently requires CGA - Min A x2 for safety with t/fs and mobility and d/t low BP. Pt would benefit from continued OT to restore PLOF maximize pt's indep with ADLs and IADLs in prep for a safe return home at max level of indep. Performance deficits / Impairments: Decreased functional mobility ,Decreased balance,Decreased posture,Decreased ADL status,Decreased endurance,Decreased high-level IADLs Prognosis: Good REQUIRES OT FOLLOW-UP: Yes Treatment Initiated: Treatment and education initiated within context of evaluation. Evaluation time included review of current medical information, gathering information related to past medical, social and functional history, completion of standardized testing, formal and informal observation of tasks, assessment of data and development of plan of care and goals. Treatment time included skilled education and facilitation of tasks to increase safety and independence with ADL's for improved functional independence and quality of life. Discharge Recommendations: Continue to assess pending progress Patient Education: Patient Education Education Given To: Patient Education Provided: Role of Therapy,Plan of Care,ADL Adaptive Strategies,IADL Safety,Energy Conservation Equipment Recommendations: Equipment Needed: Yes Other: continue to assess needs Plan: Times per Week: 5x Times per Day: Daily. See long-term goal time frame for expected duration of plan of care. If no long-term goals established, a short length of stay is anticipated. Goals: Patient goals : not stated Short Term Goals Time Frame for Short term goals: by discharge Short Term Goal 1: Pt will complete functional mobility to/from bathroom with SBA and no LOB or safety cues to increase indep with ADLs Short Term Goal 2: Pt will tolerate dynamic standing x5min with SBA and B hand release to increase indep with grooming Short Term Goal 3: Pt will complete LB ADLs with LHAE prn and 0-2 VC for back precautions to increase indep with dressing Short Term Goal 4: Pt will complete sit to stand t/fs with CGA and min VC for safety to increase indep with toileting Following session, patient left in safe position with all fall risk precautions in place. * Don Singh PA-C - 02/08/2022 10:48 AM EDT Department of Orthopedic Surgery Spine Service Attending Progress Note Subjective: Pt hypotensive and bradycardia. Denies radicular pain. Sitting up in chair. No BM Vitals VITALS: BP (!) 71/49 Pulse 53 Temp 97.5 F (36.4 C) (Oral) Resp 16 Ht 5' 10 (1.778 m) Wt 199 lb (90.3 kg) SpO2 100% BMI 28.55 kg/m 24HR INTAKE/OUTPUT: Intake/Output Summary (Last 24 hours) at 02/08/2022 1048 Last data filed at 02/08/2022 0602 Gross per 24 hour Intake 7467 ml Output 2735 ml Net 4732 ml URINARY CATHETER OUTPUT (Carrington): Urinary Catheter-Output (mL): 500 mL DRAIN/TUBE OUTPUT: Closed/Suction Drain Left Accordion-Output (ml): 5 ml Closed/Suction Drain Right Accordion-Output (ml): 270 ml PHYSICAL EXAM: Orientation: alert and oriented to person, place and time Incision: dressing in place, clean, dry, intact Lower Extremity Motor : extensor hallucis longus, dorsiflexion, plantarflexion 4-5/5 bilaterally Lower Extremity Sensory: Intact L1-S1 Flatus: positive ABNORMAL EXAM FINDINGS: none LABS: HgB: Lab Results Component Value Date HGB 11.4 02/08/2022 ASSESSMENT AND PLAN: Post operative day 1 status post L2-S1 decompression and fusion with L4-S1 revision decompression 1: Monitor labs and drain output 2: Activity Level: As tolerated 3: Pain Control: ok 4: Discharge Planning: pending 5: IM consulted and following for hypotension and bradycardia Don Singh PAC * Oumou Pandya, PT - 02/08/2022 10:33 AM EDT [facility] INPATIENT PHYSICAL THERAPY EV[facility] 7K - 7K-26/026-A Time In: 0748 Time Out: 0830 Timed Code Treatment Minutes: 24 Minutes Minutes: 42 Date: 02/08/2022 Patient Name: Alisia Correa, Gender: male : 1960 (61 y.o.) Referring Practitioner: Davion Reed PA-C Diagnosis: lumbar stenosis with neurogenic claudication Additional Pertinent Hx: Per HPI: The patient is a 61 y.o. male who presents with above chief complaint. Constant stabbing pain in the low back that radiates down the posterior legs to the feet andtoes. Pt also c/o intermittent shooting pains down the legs posteriorly. He c/o numbness throughoutbilateral legs with tingling in b/l feet. He has had multiple neck and back surgeries and has a spin al cord stimulator. 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 Symptoms have been progressively worsening. Current VAS score 7/10. 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 He states incontinence has been progressively worsening over the last 6 months or so, now occurring with saddle anesthesia/complete loss of sensation during urinationand bowel movements. Percentage noriega, pt's pain occurs 50% in the back and 50% in the legs. As it pe rtains to the legs 50% right and 50% left. Pt is s/p L2-S1 DECOMPRESSION L2-S1 POSTERIOR FUSION WITH ILIAC BOLTS, L5-S1 TLIF [address] Dr[address] Loza. Restrictions/Precautions: Required Braces or Orthoses Other: Abdominal Binder Position Activity Restriction Spinal Precautions: No Bending,No Lifting,No Twisting Other position/activity restrictions: hx PD; monitor BP Subjective: Chart Reviewed: Yes Patient assessed for rehabilitation services?: Yes Family / Caregiver Present: No Subjective: RN approved PT evaluation. Pt in bed, agreeable to therapy with encouragement. Pt was somewhat slow to respond to questions from therapist--likely due to baseline PD--however, was able toanswer all questions and converse with PT. Pt became lightheaded and diaphoretic following ambulatio n. RN present assisting PT--RN checked BP and blood glucose. Initially, BP was too low to read, andwas 76/44 with manual reading. Pt remained reclined in chair at end of session with RN assisting him. General: Vision Exceptions: Wears glasses at all times Hearing: Within functional limits Pain: 8/10: low back at rest, remained 8/10 with movement. Pt relates slight MILLER, which did not worsen with activity. Vitals: Blood Pressure: initial reading too low to read; manual: 76/44 per RN Social/Functional History: Lives With: Spouse Type of Home: House Home Layout: One level Home Access: Ramped entrance Home Equipment: Walker, rolling,Lift chair,Cane Ambulation Assistance: Needs assistance (pt states helps him) Transfer Assistance: Needs assistance ( assists him) Active Manufacturing Engineer Assembly: No Additional Comments: pt states d/t PD, he requires assistance with transfers and ambulation; pt hadHH PT BARBER INSTRUCTOR OBJECTIVE: Range of Motion: Bilateral Lower Extremity: Impaired - gross stiffness noted throughout hips, knees, and ankles Strength: Bilateral Lower Extremity: Impaired - functionall weak with transfers; could perform heel slide independently only to ~20 deg due to weakness Balance: Static Sitting Balance: Contact Guard Assistance, Minimal Assistance, X 1 Dynamic Sitting Balance: Contact Guard Assistance, Minimal Assistance, X 1 Static Standing Balance: Minimal Assistance, X 2, with cues for safety, with verbal cues , with increased time for completion Dynamic Standing Balance: Minimal Assistance, X 2, with cues for safety, with verbal cues , with increased time for completion Bed Mobility: Rolling to Right: Moderate Assistance, X 1, with head of bed flat, with rail, with verbal cues , with increased time for completion Supine to Sit: Moderate Assistance, X 1, with rail, with verbal cues , with increased time for completion Sit to Supine: Moderate Assistance, X 1, with rail, with verbal cues , with increased time for completion Scooting: Contact Guard Assistance, X 1, with verbal cues , with increased time for completion Transfers: Sit to Stand: Minimal Assistance, X 2, with increased time for completion, cues for hand placement,with verbal cues Stand to Sit:Minimal Assistance, X 2, with increased time for completion, cues for hand placement, with verbal cues, increased time for hand placement Ambulation: Minimal Assistance, X 2, with cues for safety, with verbal cues , with increased time for completion Distance: 3' bed to chair Surface: Level Tile Device:Rolling Walker Gait Deviations: Forward Flexed Posture, Slow Adriana, Decreased Step Length Bilaterally, DecreasedGait Speed, Unsteady Gait and Decreased Terminal Knee Extension *minor LOB due to L LE knee buckling--remained upright with min A x 2 Exercise: Deferred due to pt becoming pale, diaphoretic, and lightheaded Functional Outcome Measures: Completed AM-[facility] Inpatient Mobility Raw Score : 11 AM-[facility] Inpatient T-Scale Score : 33.86 ASSESSMENT: Activity Tolerance: Patient tolerance of treatment: poor. Due to hypotension. Treatment Initiated: Treatment and education initiated within context of evaluation. Evaluation time included review of current medical information, gathering information related to past medical, social and functional history, completion of standardized testing, formal and informal observation of tasks, assessment of data and development of plan of care and goals. Treatment time included skilled education and facilitation of tasks to increase safety and independence with functional mobility forimproved independence and quality of life. Assessment: Body Structures, Functions, Activity Limitations Requiring Skilled Therapeutic Intervention: Decreased functional mobility ,Decreased strength,Increased pain,Decreased sensation,Decreased balance,Decreased posture Assessment: Pt is below PLOF by way of bed mobility, transfers, and ambulation s/p L2-S1 decompression and fusion with iliac bolts, L5-S1 TLIF. On date of evaluation, pt had decreased activity tolerance due to low blood pressure. He presents with functional mobility deficits due to decreased strength and sensation as well as increased pain. He also has PD, exacerbating deficits. Pt will benefit from continued physical therapy to return to PLOF. Therapy Prognosis: Fair Requires PT Follow-Up: Yes Discharge Recommendations: Discharge Recommendations: Continue to assess pending progress,Subacute/Long Term Facility. Unsafe to return home at this time. Patient Education: . Patient Education Education Given To: Patient Education Provided: Role of Therapy,Plan of Care,Transfer Training,Precautions Education Method: Verbal Barriers to Learning: Other (Comment) Education Outcome: Verbalized understanding,Continued education needed Equipment Recommendations: Equipment Needed: No Plan: Current Treatment Recommendations: Strengthening,Balance training,Functional mobility training,Transfer training,Neuromuscular re-education,Pain management,Patient/Caregiver education & training,Positioning,Safety education & training,Gait training,Endurance training Plan Comment: 6 x O Plan: Other (see comment) Goals: Patient goals : return home Short Term Goals Time Frame for Short term goals: by hospital discharge Short term goal 1: Roll to L and to R with modified independence for ease of bed mobility. Short term goal 2: Supine to/from sit with CGA x 1 for ease of getting in/OOB. Short term goal 3: Sit to/from stand with CGA x 1 in preparation for ambulation. Short term goal 4: Ambulate 20' with RW and CGA x1 to navigate home distances. Additional Goals?: No Sodder Goals Time Frame for [facility]PC goals : N/A due to short ELOS Following session, patient left in safe position with all fall risk precautions in place. Oumou Pandya PT, DPT * Oumou Dominguez - 02/08/2022 8:50 AM EDT PT called this nurse into room to assist with patient transfer to chair. After completing transfer patient became diaphoretic, pale, and lightheaded. BP 70/45(53) HR 66. Rechecked manually 78/46. Patient laid back in recliner. IVF increased. MD notified. States to start a 250mL saline bolus and administer scheduled Midodrine. Medications administered as scheduled. Assisted patient to sit back up in chair to eat breakfast. Again complained of lightheadedness, pale and diaphoretic. Continuous O2 sats 75%. Placed on 2L O2 via NC and continued to monitor. * Oumou Elizabeth RN - 02/07/2022 4:43 PM EDT Home medication and supply waiver completed and faxed to pharmacy * Brianne Perez RPH - 02/07/2022 4:29 PM EDT Pharmacy Note Alisia Correa was ordered Zetia 10 mg nightly. Per the [facility] Formulary Committee Policy, this medication is non-formulary and not stocked by pharmacy for the reason indicated below. The medication can be reordered at discharge. Medications in which risks outweigh benefits during hospitalization: - oral bisphosphonates - raloxifene (Evista) Medications that lack necessity during an acute hospital stay: - nasal antihistamines - nasal ipratropium 0.03% and 0.06% - nasal miacalcin - acyclovir topical cream/ointment orders for herpes labialis (cold sores) Brianne Perez PharmD 02/07/2022 4:29 PM * Tabby Calderon RN - 02/07/2022 2:57 PM EDT 1433 Pt arrives to recovery responsive to verbal stimulation. Pt respirations are unlabored on 6 L nasal canula. VSS. Pt denies any pain 1446 Pt states his pain is now a 8/10. Pt medicated with dilaudid. Pt VSS. Pt respirations are unlabored. Pt resting with eyes closed 1454 Pt states his pain remains a 8/10. Pt medicated with dilaudid. Pt respirations are easy and unlabored. VSS. Pt remains to rest with eyes closed 1503 Pt states his pain is a 8/10. Pt medicated with fentanyl at this time. Pt respirations are unlabored. VSS 1512 Pt states his pain is now a 7/10. Pt medicated with fentanyl at this time. 1520 Pt states his pain remains a 7/10. Pt medicated with dilaudid at this time. Pt respirations are unlabored on 4 L nasal canula. Pt VSS 1535 Pt states his pain remains a 7/10. Pt medicated with fentanyl. Pt respirations are unlabored. VSS. Pt resting with eyes closed, tolerating ice chips 1545 Pt states his pain is now a 5/10 and tolerable. Pt resting in bed with eyes closed. VSS. Respirations unlabored 1550 Report called to ALFONSO kamara 1606 Pt meets criteria for discharge from recovery at this time. Pt departing recovery in stable condition with tranport * Oumou Elizabeth RN - 02/07/2022 2:11 PM EDT Pt admitted to [facility] via cart/stretcher. Complaints: L2-S1 decompression/fusion. IV normal saline infusing into the forearm left, condition patent and no redness at a rate of 100 mls/ hour with about 300 mls in the bag still. IV site free of s/s of infection or infiltration. Vital signs obtained. Assessment and data collection initiated. Two nurse skin assessment performed by Oumou HAMILTON and Barbara POWELL. Oriented to room. Explained patients right to have family, field representative or physician notified of their admission. Patient has Declined for physician to be notified. Patient has Declined for family/field representative to be notified. The patient is interested in [facility] meds to beds program?: No Policies and procedures for explained. All questions answered with no further questions at this time. Fall prevention and safety brochure discussed with patient. Bed alarm on. Call light in reach. * Kiara Toro RN - 02/07/2022 9:49 AM EDT ADMITTED TO [facility] AND ORIENTED TO UNIT. SCDS ON. FALL AND ALLERGY BANDS ON. PT VERBALIZED APPROVAL FOR FIRST NAME, LAST INITIAL AND PHYSICIAN NAME ON UNIT WHITEBOARD. * Evangelist Cummins - 01/20/2022 9:11 AM EDT Called for PAT reminder Lft Msg. documented in this [facility] [employer] Work Phone: [phone]) 648-350505-03-2022 Hospital Discharge instructions* Discharge Instr - DYLON* Nevaeh Oviedo RN - 02/18/2022 7:44 AM EDT Continuity of Care Form Patient Name: Alisia Correa : 1960 Admit date: 02/07/2022 Discharge date: Code Status Order: Full Code Advance Directives: Advance Care Flowsheet Documentation Date/Time Healthcare Directive Type of Healthcare Directive Copy in Chart Healthcare Agent Appointed Healthcare Agent's Name Healthcare Agent's Phone Number 02/07/22 0903 Yes, patient has an advance directive for healthcare treatment Durable power of commercial attorney for health care No, copy requested from family Healthcare power of commercial attorney Dipti- -- Admitting Physician: Frank Oden MD PCP: ELLEN CRABTREE DO Discharging Nurse: Discharging Hospital Unit/Room#: 7K-12/012-A Discharging Unit Phone Number: Emergency Contact: Extended Emergency Contact Information Primary Emergency Contact: Dipti Correa Mobile Relation: Spouse Preferred language: Tajik Asset Protection Specialist needed? No Past Surgical History: Past Surgical History: Procedure Laterality Date BACK SURGERY x8 CYST REMOVAL spine with back surgery ESOPHAGUS SURGERY for cancer HAND SURGERY x3 HIP ARTHROPLASTY Bilateral KNEE ARTHROPLASTY Bilateral left x2 LUMBAR FUSION N/A 02/07/2022 L2-S1 DECOMPRESSION L2-S1 POSTERIOR FUSION WITH ILIAC BOLTS, L5-S1 TLIF performed by Frank Oden MD at [facility] OR NECK SURGERY lymph nodes SHOULDER SURGERY Left SKIN CANCER EXCISION lip STOMACH SURGERY TOE AMPUTATION Left 4th toe TURP Immunization History: There is no immunization history on file for this patient. Active Problems: Patient Active Problem List Diagnosis Code Lumbar stenosis with neurogenic claudication M48.062 Idiopathic hypotension I95.0 Isolation/Infection: Isolation Contact Patient Infection Status Infection Onset Added Last Indicated Last Indicated By Review Planned Expiration Resolved Resolved By MRSA 01/23/22 01/23/22 01/23/22 Nasal Complete Screen RT-PCR Nares 01/2022 Nurse Assessment: Last Vital Signs: BP 104/62 Pulse 62 Temp 98.1 F (36.7 C) (Oral) Resp 18 Ht 5' 10 (1.778 m) Wt 240 lb (108.9 kg) SpO2 97% BMI 34.44 kg/m Last documented pain score (0-10 scale): Pain Level: 6 Last Weight: Wt Readings from Last 1 Encounters: 02/09/22 240 lb (108.9 kg) Mental Status: oriented, alert, coherent, logical, thought processes intact, and able to concentrate and follow conversation IV Access: - None Nursing Mobility/ADLs: Walking Assisted Transfer Assisted Bathing Assisted Dressing Assisted Toileting Assisted Feeding Assisted Ediphone Operator Assisted Med Delivery whole Wound Care Documentation and Therapy: Wound 02/07/22 Sacrum Mid Purple discoloration on coccxy, not blanchable, peeling (Active) Wound Etiology Deep tissue/Injury 02/16/221940 Dressing/Treatment Protective barrier;Zinc paste 02/16/221940 Wound Assessment Purple/maroon 02/16/22 0845 Drainage Amount None 02/16/22 0845 Odor None 02/16/22 0845 Charley-wound Assessment Blanchable erythema;Fragile 02/14/222225 Number of days: 10 Wound 02/07/22 Toe (Comment which one) Anterior;Left blackened area on tip of left great toe, scabbed area on left great toe (Active) Wound Etiology Pressure Unstageable 02/16/221940 Dressing/Treatment Open to air 02/16/221940 Offloading for Diabetic Foot Ulcers Offloading not required 02/15/22 1620 Wound Assessment Dry 02/16/22 0845 Drainage Amount None 02/16/22 0845 Odor None 02/14/222225 Charley-wound Assessment Intact 02/14/222225 Number of days: 10 Incision 02/07/22 Back Lower;Medial (Active) Dressing Status Clean;Dry;Intact 02/16/221940 Dressing/Treatment Dry dressing 02/16/221940 Closure Other (Comment) 02/14/222225 Incision Assessment Other (Comment) 02/14/222225 Drainage Amount None 02/16/221940 Odor None 02/14/222225 Charley-incision Assessment Warm;Intact 02/14/222225 Number of days: 11 Elimination: Continence: Bowel: No Bladder: No Urinary Catheter: None Colostomy/Ileostomy/Ileal Conduit: No Date of Last BM: 02/18/22 Intake/Output Summary (Last 24 hours) at 02/18/2022 0743 Last data filed at 02/18/2022 0533 Gross per 24 hour Intake 100 ml Output 3150 ml Net -3050 ml I/O last 3 completed shifts: In: 800 [P.O.:800] Out: 4350 [Urine:4350] Safety Concerns: At Risk for Falls Impairments/Disabilities: None Nutrition Therapy: Current Nutrition Therapy: - Oral Diet: Carb Control 4 carbs/meal (1800kcals/day) Routes of Feeding: Oral Liquids: Thin Liquids Daily Fluid Restriction: no Last Modified Barium Swallow with Video (Video Swallowing Test): not done Treatments at the Time of Hospital Discharge: Respiratory Treatments: Oxygen Therapy: is on oxygen at 2 L/min per nasal cannula. Ventilator: - No ventilator support Rehab Therapies: Physical Therapy, Occupational Therapy, Orthotics/Prosthetics, and Speech/LanguageTherapy Weight Bearing Status/Restrictions: No weight bearing restrictions Other Medical Equipment (for information only, NOT a DME order): walker and bedside commode Other Treatments: Patient's personal belongings (please select all that are sent with patient): Glasses and dentures RN SIGNATURE: CASE MANAGEMENT/SOCIAL WORK SECTION Inpatient Status Date: 02/07/22 Readmission Risk Assessment Score: Readmission Risk Risk of Unplanned Readmission: 17 Discharging to Facility/ Agency Name: Address: Phone: Fax: Dialysis Facility (if applicable) Name: Address: Dialysis Schedule: Phone: Fax: Dental Receptionist/Ski Molder signature: {Esignature:[id number]} PHYSICIAN SECTION Prognosis: {Prognosis:8220331318} Condition at Discharge: { Patient Condition:018359425} Rehab Potential (if transferring to Rehab): {Prognosis:5414945024} Recommended Labs or Other Treatments After Discharge: Physician Certification: I certify the above information and transfer of Alisia Correa is necessary for the continuing treatment of the diagnosis listed and that he requires {Admit to Appropriate Level of Care:46462} for {GREATER/LESS:518581468} 30 days. Update Admission H&P: {CHP DME Changes in HandP:782915858} PHYSICIAN SIGNATURE: * Additional Instructions* Nevaeh Oviedo RN - 02/11/2022 Back Surgery Activity No lifting, pushing, or pulling Up as tolerated at least 3-4 times per day. Up walking-helps to decrease the risk of blood clots Wear jacqueline hose as directed per your physician No driving until cleared by your physician Back Brace or abdominal binder If your physician prescribes a brace/abdominal binder, wear back brace at all times. May remove when in bed or bathing Follow all back precautions. Incision Care Keep back incision dry and intact. Apply clean dry dressing once a day. May shower if no drainage from your incision-unless otherwise directed per your physician No tub baths-no soaking of incision-no swimming No heaving lifting of more than 5 lbs/or as directed per your physician Diet Increase Fluid/Water intake, eat foods high in fiber; fruits and vegetables to help to prevent constipation Examples of foods high in fiber Vegetables All vegetables, especially asparagus, jack sprouts, broccoli, [place] sprouts, cabbage, carrots, cauliflower, celery, corn, greens, green beans, green pepper, onions, peas, potatoes (with skin), snow peas, spinach, squash, sweet potatoes, tomatoes, zucchini For maximum fiber intake, eat the peels of fruits and vegetables just be sure to wash them well first. Fruits All fruits, especially apples, berries, grapefruits, mangoes, nectarines, oranges, peaches, pears, dried fruits (figs, dates, prunes, raisins) Choose raw fruits and vegetables over juice, cooked, or canned raw fruit has more fiber. Dried fruit is also a good source of fiber. Some of the common symptoms of a surgical site infection are: Symptoms in the area where the surgery took place: Redness Drainage Pus Pain Swelling Bad smell Prevention of surgical site infection: Make sure that your healthcare providers clean their hands before examining you - either with soap and water or an alcohol-based hand rubs. Family and friends who visit you should not touch the surgical wound or dressings. Family and friends should clean their hands with soap and water or an alcohol- based hand rub beforeand after visiting you. If you do not see them clean their hands, ask them to clean their hands. Wash hands frequently Do not allow pet to sleep in the bed with you until your incision is completely healed. Keep bed sheets clean If you are taking medications, follow these general guidelines: Take your medication as directed. Do not change the amount or the schedule. Do not stop taking them without talking to your doctor. Do not share them. Know what the results and side effects are. Report them to your doctor. Some drugs can be dangerous when mixed. Talk to a doctor or pharmacist if you are taking more than one drug. This includes aibi-vmb-laebqmh medication and herb or dietary supplements. Plan ahead for refills so you do not run out. Call Your Doctor If Any of the Following Occurs It is important for you to check your recovery once you leave the hospital. That way, you can alertyour doctor to any problems immediately. If any of the following occur, call your doctor: Signs of infection, including fever, chills, redness, swelling, increasing pain, excessive bleeding, or discharge from the incision site The stitches or maría elena come apart at the incision site Nausea and/or vomiting that you can't control with the medications you were given after surgery, orwhich persist for more than two days after discharge from the hospital Pain that you can't control with the medications you've been given Cough shortness of breath, or chest pain Joint pain, fatigue, stiffness, rash, or other new symptoms Numbness, tingling, pain, or weakness, especially in the arms, hands, legs, or feet Pain, swelling in your feet, legs, or calves Loss of bladder or bowel function Pain, burning, urgency, frequency of urination, or persistent blood in the urine In case of an emergency call 911 Refer to medication education sheets for general information and possible side effects F/up dr schrader 6-8 weeks documented in this [facility] [employer] Work Phone: 1(102) 777-601804-23-2022 NotePROCEDURE: XR CHEST PORTABLE CLINICAL INFORMATION: SOB. COMPARISON: Chest radiographs dated 01/23/2022. TECHNIQUE: AP upright view of the chest. FINDINGS: There is prominent left basilar opacity with some volume loss on the left which has appeared in theinterval since prior exam. The right lung appears clear. Cardiac silhouette is partially obscured. There is a spinal stimulator lead projecting over the thoracic spine. There are stable degenerative changes of the acromioclavicular joints. IMPRESSION: Prominent left basilar opacity as evidence for atelectasis and/or infiltrate. This report has been created using voice recognition software. It may contain minor errors which are inherent in voice recognition technology. Final report electronically signed by Dr. Romel Maldonado DO, MD on 02/08/2022 10:26 AM Interpreted by: Romel Maldonado DO Signed by: Romel Maldonado DO 02/08/22 [facility] NotePROCEDURE: XR CHEST PORTABLE CLINICAL INFORMATION: SOB. COMPARISON: Chest radiographs dated 01/23/2022. TECHNIQUE: AP upright view of the chest. FINDINGS: There is prominent left basilar opacity with some volume loss on the left which has appeared in theinterval since prior exam. The right lung appears clear. Cardiac silhouette is partially obscured. There is a spinal stimulator lead projecting over the thoracic spine. There are stable degenerative changes of the acromioclavicular joints. [facility][id number] NotePROCEDURE: XR LUMBAR SPINE 1 VW CLINICAL INFORMATION: 61-year-old male undergoing lumbar spine surgery . COMPARISON: No prior study. TECHNIQUE: One lateral film of the lumbar spine was obtained during surgery. FINDINGS: The generator to a stimulator device is seen in the soft tissues overlying the lower back. There are diffuse degenerative changes in the lumbar spine. There are localizer probes with a posterior approach position behind the L2 and L3 vertebral bodies. IMPRESSION: Lateral film of the lumbar spine during surgery. Please refer to the operative note for further details. This report has been created using voice recognition software. It may contain minor errors which are inherent in voice recognition technology. Final report electronically signed by Dr Milton Way on 02/07/2022 2:17 PM Interpreted by: Milton Way MD Signed by: Milton Way MD 02/07/22 Final resultSaint [facility]04-22-2022 NotePROCEDURE: XR LUMBAR SPINE 1 VW CLINICAL INFORMATION: 61-year-old male undergoing lumbar spine surgery . COMPARISON: No prior study. TECHNIQUE: One lateral film of the lumbar spine was obtained during surgery. FINDINGS: The generator to a stimulator device is seen in the soft tissues overlying the lower back. There are diffuse degenerative changes in the lumbar spine. There are localizer probes with a posterior approach position behind the L2 and L3 vertebral bodies. [facility] RIS [id number] Evaluation note* Encounter Date Diagnosis Assessment Notes Treatment Notes Treatment Clinical Notes Jan, Lumbosacral stenosis (ICD-10 - M48.07) Patient is scheduled for lumbar decompression and fusion of L2-S1 with Dr. Loza this month. Jan, Encounter for pre-operative examination (ICD-10 - Z01.818) Last stress test was preformed 09/05/2021 that was normal. Recent EKG reviewed with normal results. Blood work results reviewed with patient, no signs of anemia. Therefore, in my medical opinion the patient is cleared for sugery with Dr. Oden. Jan, History of kidney stones (ICD-10 - Z87.442) Refill provided of the above medication. Jan, MRSA (methicillin resistant Staphylococcus aureus) (ICD-10 - A49.02) Nasal swab noted MRSA. Advised patient to brick picker antibiotic and start it as soon as possible. [facility] Other [id number] NotePROCEDURE: XR CHEST (2 VW) CLINICAL INFORMATION: Pre-op testing. COMPARISON: No prior study. TECHNIQUE: PA and lateral views the chest. FINDINGS: The heart size is normal. The mediastinum is not widened. There is diffuse COPD. There is atelectasis at the left lung base. The remaining lungs are clear. There are no effusions.. The pulmonary vascularity is normal. There is a spinal cord stimulator in the thoracic spine. There are postoperative changes at the cervicothoracic junction. There are postoperative changes involving the left humeral head. . IMPRESSION: 1. Diffuse COPD and atelectasis at the left lung base. 2. Spinal cord stimulator in the midthoracic spine. 3. Postoperative changes at the cervicothoracic junction. 4. Left shoulder replacement. This report has been created using voice recognition software. It may contain minor errors which are inherent in voice recognition technology. Final report electronically signed by DR OLGA ESPINOZA on 01/23/2022 3:50 PM Interpreted by: Olga Espinoza MD Signed by: Olga Espinoza MD 01/23/22 [facility] Evaluation note* Encounter Date Diagnosis Assessment Notes Treatment Notes Treatment Clinical Notes Jan, Parkinsonism (ICD-10 - G20) Jan, Diabetes (ICD-10 - E11.9) [facility] Other 03-28-2022 Evaluation note* Encounter Date Diagnosis Assessment Notes Treatment Notes Treatment Clinical Notes Dec, Constipation (ICD-10 - K59.00) [facility] Other 02-17-2022 Evaluation note* Encounter Date Diagnosis Assessment Notes Treatment Notes Treatment Clinical Notes Nov, Hyperlipidemia (ICD-10 - E78.5) Nov, Parkinsonism (ICD-10 - G20) Patient following with neurologist Dr. Mancia and operations management professionals Dr. Harris. He reports improvement with his strength since following with Dr. Harris and taking steriod injections. We are unsure of exact treatment plan, patient states that he will call back with further information. Nov, Screening for prostate cancer (ICD-10 - Z12.5) PSA is within normal limits. Nov, Hypotension (ICD-10 - I95.9) Nov, Neuropathy (ICD-10 - G62.9) Nov, Benign prostatic hyperplasia with lower urinary tract symptoms, symptom details unspecified (ICD-10 - N40.1) [facility] Other 02-07-2022 Miscellaneous Notes* Telephone Encounter - Chrissy Christian - 11/25/2021 3:17 PM EST FINAL ATTEMPT Called and left detailed message for patient to call to schedule procedure with pain management. Will follow up. Patient provided with direct extension to reach surgical coordinators. If patient calls back, please transfer to [phone]. * Telephone Encounter - Chrissy Christian - 11/21/2021 6:07 PM EST Bilateral L 2-3 ,3-L4, L4-L5 and L5-S1 FACET ALISIA CORREA [id number] JEANNIE HENDERSON Called and left detailed message for patient to call to schedule procedure with pain management. Will follow up. Patient provided with direct extension to reach surgical coordinators. If patient calls back, please transfer to [phone]. * Telephone Encounter - Chrissy Christian - 11/14/2021 11:53 AM EST Bilateral L 2-3 ,3-L4, L4-L5 and L5-S1 FACET ALISIA CORREA [id number] JEANNIE Called and left detailed message for patient to call to schedule procedure with pain management. Will follow up. Patient provided with direct extension to reach surgical coordinators. If patient calls back, please transfer to [phone]. * Telephone Encounter - Kiara Dhaliwal RN - 11/13/2021 2:23 PM EST Patient called, verified name and date, and patient states I had 80 % pain relief that lasted for 5 hours after my nerve block on 11/08/21. Today I have 15 % pain relief. I was able to walk andget up easier with less pain when my pain was 80 % relieved. Please call patient and assist with scheduling Bilateral L 2-3 ,3-L4, L4-L5 and L5-S1 median branchnerve block # 2 * Telephone Encounter - Kiara Dhaliwal RN - 11/13/2021 9:04 AM EST Called patient and left a voice mail requesting a call back regarding % of pain relief and any functional improvement since Bilateral L 2-3 ,3-L4, L4-L5 and L5- S1 median branch nerve block # [address] Henderson on 11/08/21. Patient advised on voice mail that this is our 3rd and final attempt to obtain this information and that his insurance will not approve a Bilateral L 2-3 ,3-L4, L4- L5 and L5-S1 median branch nerve block # 2 or a future RFA without this information Please document the % of pain relief when patient calls back and if they have had any functional improvement. For instance is pain 50% relieved, 75% 90% etc. NOTE: Patient has [employer] medicare and they require a second diagnostic block then option for RFA (bipolar) if he has >80% relief from today's block. When patient calls back, please document his initial % of pain relief and how many hours that pain relief lasted. * Telephone Encounter - Kiara Dhaliwal RN - 11/12/2021 9:46 AM EST Called patient and left a voice mail to call back. * Telephone Encounter - Niesha Masterson LPN - 11/11/2021 11:04 AM EST Called patient and left a voice mail requesting a call back regarding % of pain relief and any functional improvement since Bilateral L 2-3 ,3-L4, L4-L5 and L5- S1 median branch nerve block # 1 under fluoroscopic guidance with Dr Henderson on 11/08/21. Please document the % of pain relief when patient calls back and if they have had any functional improvement. For instance is pain 50% relieved, 75% 90% etc. Patient has [employer] medicare and they require a second diagnostic block then option for RFA (bipolar) if he has >80% relief from today's block. documented in this encounterTri[facility]* Encounter Date Diagnosis Assessment Notes Treatment Notes Treatment Clinical Notes Oct, Hypotension, unspecified hypotension type (ICD-10 - I95.9) Oct, Risk for falls (ICD-10 - Z91.81) Oct, Diabetes (ICD-10 - E11.9) Oct, Neuropathy (ICD-10 - G62.9) Oct, Failed back syndrome (ICD-10 - M96.1) Oct, Parkinsonism (ICD-10 - G20) [facility] Other 12-13-2021 Evaluation note* Encounter Date Diagnosis Assessment Notes Treatment Notes Treatment Clinical Notes Sep, Parkinsonism (ICD-10 - G20) [facility] Other 11-16-2021 Evaluation note* Encounter Date Diagnosis Assessment Notes Treatment Notes Treatment Clinical Notes Aug, Benign prostatic hyperplasia with lower urinary tract symptoms (ICD-10 - N40.1) [facility] Other 11-09-2021 Evaluation note* Encounter Date Diagnosis Assessment Notes Treatment Notes Treatment Clinical Notes Aug, Constipation (ICD-10 - K59.00) Pt is to continue with the above medication, a refill was provided and we will continue to monitor. Aug, Hypotension (ICD-10 - I95.9) Review of cardiology consult notes with the patient . I am in agreement the patient follow through with scheduled stress test 09/05/21 and follow up with . Aug, Parkinsonism (ICD-10 - G20) The patient encouraged to continue following with as scheduled for management for Parkinsonism. The patient is having difficulty with feeling any sensation in the lower bilateral extremities. Aug, Pain of right heel (ICD-10 - M79.671) Right foot examination performed noting a small calcaneal ulcer and cyanosis. 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 Discussion was had regarding venous stasis . Per patient ordered venous studies several months ago. I did apply triple antibiotic ointment and covered the wound with a band aid. Home care instructions provided and again I stressed the importance of following up with podiatry to avoid infection . 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 I encouraged him to call me with any concerns but will mainly need to follow with Dr. Mancia. 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 Encouraged him to continue with Protonix and I recommended referral to gastroenterology. He was in agreement with this and referral initiated. Jul, Ulcer (ICD-10 - L98.499) Jul, Hypotension (ICD-10 - I95.9) Encouaged patient to continue wearing compression stockings, and increase salt/water intake as directed. [facility] Other 10-28-2020 History of Present illness Narrative* Peace Block CT (Ct) - 08/15/2020 8:40 AM EDT Radiology Service Progress Note PATIENT NAME: Alisia Correa DATE OF SERVICE: August 15, 2020 TIME: 8:27 AM PATIENT IDENTITY VERIFICATION COMPLETED USING TWO (2) IDENTIFIERS: Name and Date of confirmedby patient verbally. FALL SCREENING: Has the patient had 2 falls in the last year or 1 fall with injury or currently using an Ambulatory Assistive Device (Walker, Cane, Wheelchair, Crutches, etc.)? No PATIENT GENDER DATA: Male PATIENT RELEVANT IMPLANT DATA REVIEWED: Not Applicable RADIOLOGY DEPARTMENT: CT; Exam(s) Completed: Spine PERIPHERAL IV DATA: Not applicable SIGNED BY: NIKKIE Amanda August 15, 2020 8:27 AM documented in this encounterTri[facility]08[facility] History of Present illness Narrative* Peace Block (Nikkie)NIKKIE - 06/15/2020 9:00 AM EDT Radiology Service Progress Note PATIENT NAME: Alisia Correa DATE OF SERVICE: June 15, 2020 TIME: 9:03 AM PATIENT IDENTITY VERIFICATION COMPLETED USING TWO (2) IDENTIFIERS: Name and Date of confirmedby patient verbally. FALL SCREENING: Has the patient had 2 falls in the last year or 1 fall with injury or currently using an Ambulatory Assistive Device (Walker, Cane, Wheelchair, Crutches, etc.)? No PATIENT GENDER DATA: Male PATIENT RELEVANT IMPLANT DATA REVIEWED: Not Applicable RADIOLOGY DEPARTMENT: CT; Exam(s) Completed: Spine PERIPHERAL IV DATA: Not applicable SIGNED BY: NIKKIE Amanda June 15, 2020 9:03 AM documented in this encounterTrihealth [facility]02-19-[facility] History of Past illness Narrative* Problem Noted Date Resolved Date Ulcerative lesion 12/07/2017 07/21/2019 Glenohumeral arthritis 07/17/2016 9 SPRAIN OF NECK () 03/06/2004 07/21/20 19 Brachial neuritis or radiculitis 03/06/2004 12/22/2018 Carpal tunnel syndrome 03/06/2004 9 documented as of this encounter (statuses as of 01/28/2022) [facility] History of Past illness Narrative* Problem Noted Date Resolved Date Ulcerative lesion 12/07/2017 07/21/2019 Glenohumeral arthritis 07/17/2016 9 Urgency of urination 07/31/2006 12/05/2022 SPRAIN OF NECK () 03/06/2004 07/21/20 19 Brachial neuritis or radiculitis 03/06/2004 12/22/2018 Carpal tunnel syndrome 03/06/2004 9 documented as of this encounter (statuses as of 12/06/2022) [facility] History of Past illness Narrative* Problem Noted Date Resolved Date Ulcerative lesion 12/07/2017 07/21/2019 Glenohumeral arthritis 07/17/2016 9 Urgency of urination 07/31/2006 12/05/2022 SPRAIN OF NECK () 03/06/2004 07/21/20 19 Brachial neuritis or radiculitis 03/06/2004 12/22/2018 Carpal tunnel syndrome 03/06/2004 9 documented as of this encounter (statuses as of 12/25/2022) [facility] History of Past illness Narrative* Problem Noted Date Diagnosed Date Resolved Date Ulcerative lesion 12/07/2017 07/21/2019 Glenohumeral arthritis 07/17/201612/22 Urgency of urination 07/31/2006 023 SPRAIN OF NECK () 03/06/200412/2018 Brachial neuritis or radiculitis 03/06/2004 12/22/2018 Carpal tunnel syndrome 03/06/200412/22 documented as of this encounter (statuses as of 05/29/2023) [facility] of Past illness Narrative* Problem Noted Date Diagnosed Date Resolved Date Ulcerative lesion 12/07/2017 07/21/2019 Glenohumeral arthritis 07/17/201612/22 Urgency of urination 07/31/2006 023 SPRAIN OF NECK () 03/06/200412/2018 Brachial neuritis or radiculitis 03/06/2004 12/22/2018 Carpal tunnel syndrome 03/06/200412/22 documented as of this encounter (statuses as of 05/29/2023) [facility] History of Past illness Narrative* Problem Noted Date Diagnosed Date Resolved Date Ulcerative lesion 12/07/2017 07/21/2019 Glenohumeral arthritis 07/17/201612/22 Urgency of urination 07/31/2006 023 SPRAIN OF NECK () 03/06/2004 100 12/2018 Brachial neuritis or radiculitis 03/06/2004 12/22/2018 Carpal tunnel syndrome 03/06/200412/22 documented as of this encounter (statuses as of 05/29/2023) [facility]08-[facility]2012 History general Narrative - Reported* Type Description Date Medical History 06/07/12 Stress Test [facility] Medical History 2008-colonoscopy ruba Ordonez; 07/2016 colonoscopy/egd [facility] Medical History 01/26/15 Labs Medical History 03/2016- stress test and [place]ocar di[place] Medical History 03/2016 EGD at [place] Medical History 08/20/16 PSA ( 0.79) Medical History f/u with Pain Mgmt Dr Elkins as of 02/2017 Medical History f/u with Ortho Dr Conway (left k nee) Medical History Smoker- quits and restarts often Medical History 10/14/19 Colonoscopy w/ Dr. Mcdonald man Medical History Right total hip-04/10/20 Surgical History 4 back surgeries lumbar and cer vical Surgical History rt shoulder surgery x2 Surgical History lt knee surgery Surgical History right hand surgery x 2 Surgical History vasectomy Surgical History T&A Surgical History lumbar surgery. 09-18-10 Surgical History back surgery 06-30 Surgical History left knee surgery 06/2013 Surgical History pain stimulator 06/2016 Surgical History left knee total replacement 2 n d 04/27/2017 Surgical History Right Total Knee Replacement Surgical History Left Shoulder Replacement 12/29 Surgical History Prostate Bands Placed 8 Surgical History bronchoscopy 02/17/2019 Surgical History Right total hip-CC 04/10/20 Hospitalization History SEE ABOVE [facility] Other [id number] History general Narrative - Reported* Type Description Date Medical History 06/07/12 Stress Test [facility] Medical History 2008-colonoscopy rub[facility]; 07/2016 colonoscopy/egd [facility] Medical History 01/26/15 Labs Medical History 03/2016- [place] test [place] Medical History 03/2016 EGD [place] Medical History 08/20/16 PSA ( 0.79) Medical History f/u with Pain Mgmt Dr Elkins as of 02/2017 Medical History f/u with Ortho Dr Conway (left k nee) Medical History Smoker- quits and restarts often Medical History 10/14/19 Colonoscopy w/ Dr. Mcdonald man Medical History Right total hip-04/10/20 Surgical History 4 back surgeries lumbar and cer vical Surgical History rt shoulder surgery x2 Surgical History lt knee surgery Surgical History right hand surgery x 2 Surgical History vasectomy Surgical History T&A Surgical History lumbar surgery. 09-18-10 Surgical History back surgery - Surgical History left knee surgery 06/2013 Surgical History pain stimulator 06/2016 Surgical History left knee total replacement 2 n d 04/27/2017 Surgical History Right Total Knee Replacement Surgical History Left Shoulder Replacement 12/29 Surgical History Prostate Bands Placed 8 Surgical History bronchoscopy 02/17/2019 Surgical History Right total hip-CC 04/10/20 Surgical History lumbar nerve blocks Dr. Owens r 10/2021 Hospitalization History SEE ABOVE [facility] Other 08-20-2012 History general Narrative - Reported* Type Description Date Medical History 06/07/12 Stress Test [facility] Medical History 2008-colonoscopy wit h Dr. Ordonez; 07/2016 colonoscopy/egd [facility] Medical History 01/26/15 Labs Medical History 03/2016- [place] test [place] Medical History 03/2016 EGD [place] [facility] Medical History 08/20/16 PSA ( 0.79) Medical History f/u with Pain Mgmt Dr Elkins as of 02/2017 Medical History f/u with Ortho Dr Conway (left k nee) Medical History Smoker- quits and restarts often Medical History 10/14/19 Colonoscopy w/ Dr. Harry stevens Medical History Right total hip-04/10/20 Medical History 08/2021 Stress Test Medical History 01/2022 EKG Surgical History 4 back surgeries lumbar and cer vical Surgical History rt shoulder surgery x2 Surgical History lt knee surgery Surgical History right hand surgery x 2 Surgical History vasectomy Surgical History T&A Surgical History lumbar surgery. 09-18-10 Surgical History back surgery - Surgical History left knee surgery 06/2013 Surgical History pain stimulator 06/2016 Surgical History left knee total replacement 2 n d 04/27/2017 Surgical History Right Total Knee Replacement Surgical History Left Shoulder Replacement 12/29 Surgical History Prostate Bands Placed 8 Surgical History bronchoscopy 02/17/2019 Surgical History Right total hip-CC 04/10/20 Surgical History lumbar nerve blocks Dr. Owens r 10/2021 Hospitalization History SEE ABOVE [facility] Other 08-20-2012 History general Narrative - Reported* Type Description Date Medical History 06/07/12 Stress Test NO Medical History 2008-colonoscopy rub[facility]; 07/2016 colonoscopy/egd [facility] Medical History 01/26/15 Labs Medical History 03/2016- [place] test [place] Medical History 03/2016 [place] [facility] Medical History 08/20/16 PSA ( 0.79) Medical History f/u with Pain Mgmt Dr Elkins as of 02/2017 Medical History f/u with Ortho Dr Conway (left k nee) Medical History Smoker- quits and restarts often Medical History 10/14/19 Colonoscopy w/ Dr. Harry stevens Medical History Right total hip-04/10/20 Medical History 08/2021 Stress Test Medical History 01/2022 EKG Surgical History 4 back surgeries lumbar and cer vical Surgical History rt shoulder surgery x2 Surgical History lt knee surgery Surgical History right hand surgery x 2 Surgical History vasectomy Surgical History T&A Surgical History lumbar surgery. 09-18-10 Surgical History back surgery 06-30 Surgical History left knee surgery 06/2013 Surgical History pain stimulator 06/2016 Surgical History left knee total replacement 2 n d 04/27/2017 Surgical History Right Total Knee Replacement Surgical History Left Shoulder Replacement 12/29 Surgical History Prostate Bands Placed 8 Surgical History bronchoscopy 02/17/2019 Surgical History Right total hip-CC 04/10/20 Surgical History lumbar nerve blocks Dr. Roman hinkle 10/2021 Surgical History Lumbar decompression/fusion Dr Romo 01/2022 Hospitalization History SEE ABOVE [facility] Other 08-20-2012 History general Narrative - Reported* Type Description Date Medical History 06/07/12 Stress Test NO Medical History 2008-colonoscopy rub[facility]; 07/2016 colonoscopy/egd [facility] Medical History 01/26/15 Labs Medical History 03/2016- [place] test [place] Medical History 03/2016 [place] [facility] Medical History 08/20/16 PSA ( 0.79) Medical History f/u with Pain Mgmt Dr Elkins as of 02/2017 Medical History f/u with Ortho Dr Conway (left k nee) Medical History Smoker- quits and restarts often Medical History 10/14/19 Colonoscopy w/ Dr. Mcdonald man Medical History Right total hip-04/10/20 Medical History 08/2021 Stress Test Medical History 01/2022 EKG Surgical History 4 back surgeries lumbar and cer vical Surgical History rt shoulder surgery x2 Surgical History lt knee surgery Surgical History right hand surgery x 2 Surgical History vasectomy Surgical History T&A Surgical History lumbar surgery. 09-18-10 Surgical History back surgery - Surgical History left knee surgery 06/2013 Surgical History pain stimulator 06/2016 Surgical History left knee total replacement 2 n d 04/27/2017 Surgical History Right Total Knee Replacement Surgical History Left Shoulder Replacement 12/29 Surgical History Prostate Bands Placed 8 Surgical History bronchoscopy 02/17/2019 Surgical History Right total hip-CC 04/10/20 Surgical History lumbar nerve blocks Dr. Roman hinkle 10/2021 Surgical History Lumbar decompression/fusion Dr Room 01/2022 Hospitalization History SEE ABOVE Hospitalization History pneumonia 10/2022 [facility] Other 08-20-2012 History general Narrative - Reported* Type Description Date Medical History 06/07/12 Stress Test [facility] Medical History 2008-colonoscopy wit h Dr. Ordonez; 07/2016 colonoscopy/egd [facility] Medical History 01/26/15 Labs Medical History 03/2016- [place] test [place] Medical History 03/2016 EGD [place] [facility] Medical History 08/20/16 PSA ( 0.79) Medical History f/u with Pain Mgmt Dr Elkins as of 02/2017 Medical History f/u with Ortho Dr Conway (left k nee) Medical History Smoker- quits and restarts often Medical History 10/14/19 Colonoscopy w/ Dr. Mcdonald man Medical History Right total hip-04/10/20 Medical History 08/2021 Stress Test Medical History 01/2022 EKG Medical History Septicemia Medical History Septicemia Surgical History 4 back surgeries lumbar and cer vical Surgical History rt shoulder surgery x2 Surgical History lt knee surgery Surgical History right hand surgery x 2 Surgical History vasectomy Surgical History T&A Surgical History lumbar surgery. 09-18-10 Surgical History back surgery - Surgical History left knee surgery 06/2013 Surgical History pain stimulator 06/2016 Surgical History left knee total replacement 2 n d 04/27/2017 Surgical History Right Total Knee Replacement Surgical History Left Shoulder Replacement 12/29 Surgical History Prostate Bands Placed 8 Surgical History bronchoscopy 02/17/2019 Surgical History Right total hip-CC 04/10/20 Surgical History lumbar nerve blocks Dr. Roman hinkle 10/2021 Surgical History Lumbar decompression/fusion Dr Romo 01/2022 Hospitalization History SEE ABOVE Hospitalization History pneumonia 10/2022 [facility] [employer] Other Chief complaint Narrative - ReportedALISIA CORREA is being seen for a consultation for chest pain.-Located Within [facility] [address] DO Work Phone: Chirp complaint Narrative - Reported* ALISIA CORREA is being seen for a consultation for chest pain. * 60-year-old white male who is being evaluated at the request of PCP for symptoms of dyspnea and chest pain with syncope. The patient appears older than his stated age and unfortunately has history ofParkinson's disease followed by neurology from [place] on medical therapy. The patient has been experienced symptoms of syncope with minor injuries. They seem to be all related to upright position likely related to Parkinson's disease and autonomic dysfunction. He has described atypical chest pain and dyspnea on exertion however his activity level is extremely limited. The patient has in the past had multiple nuclear stress tests in 2004, 2007, 2009 and 2011. All of these came back normal. He had an echocardiogram 2007 which also came back normal. He is actively smoking and he is diabetic and hyperlipidemic. His blood pressure is on the low side. He denies any palpitations and described painin his lower extremities with an ulceration that has not been followed by podiatry. He was advised to follow-up with podiatry as soon as possible. His examination revealed normal heart sounds normal lung sounds and no significant lower extremity edema. He was not in any distress. His EKG revealed normal sinus rhythm with no acute changes. * Assessment/recommendations: * 1 syncope that is likely related to Parkinson's disease and autonomic dysfunction and hypotension. The patient will start taking midodrine 5 mg twice daily * 2 symptoms of chest pain of unknown etiology. Has had multiple stress tests in the past however thelast evaluation was 2011. Lexiscan perfusion study is recommended and will be scheduled * 3 hypertension related to Parkinson's disease. The patient will start on midodrine 5 mg twice daily * 4 active tobacco abuse. He was counseled for tobacco cessation * 5 hyperlipidemia on statin therapy and Zetia * 6 diabetes managed by PCP. * 7 Parkinson's disease followed by neurology from [place]. * 8 obesity, encouraged the patient to reduce caloric consumption * 9 possible PAD, patient is following up with podiatry -[facility] [address] [place] Work Phone: Evaluation + Plan note Future Appointments Appointment Date:02/20/2023 09:15:00 AM Scheduled Provider:Fidel IBARRA MD Location:[facility] Appointment Type:URO Office Visit [facility] evaluation + Plan note Future Appointments Appointment Date:03/20/2023 09:00:00 AM Scheduled Provider: Location:[facility] Appointment Type:URO Nurse Visit [facility] evaluation + Plan note Future Appointments Appointment Date:04/17/2023 09:00:00 AM Scheduled Provider: Location:[facility] Appointment Type:URO Nurse Visit [facility] evaluation + Plan note Future Appointments Appointment Date:05/25/2023 11:00:00 AM Scheduled Provider: Location:[facility] Appointment Type:URO Nurse Visit [facility] evaluation + Plan note Future Appointments Appointment Date:06/19/2023 11:00:00 AM Scheduled Provider: Location:[facility] Appointment Type:URO Nurse Visit [facility] evaluation + Plan note Future Appointments Appointment Date:06/19/2023 11:00:00 AM Scheduled Provider: Location:[facility] Appointment Type:URO Nurse Visit Diagnostic Tests Pending * [facility] Appointment Date:07/17/2023 11:00:00 AM Scheduled Provider: Location:[facility] Appointment Type:URO Nurse Visit [facility] evaluation + Plan note Future Appointments Appointment Date:07/17/2023 11:00:00 AM Scheduled Provider: Location:[facility] Appointment Type:URO Nurse Visit Diagnostic Tests Pending * [facility] Appointment Date:08/14/2023 11:00:00 AM Scheduled Provider: Location:[facility] Appointment Type:URO Nurse Visit [facility] evaluation + Plan note Future Appointments Appointment Date:08/14/2023 11:00:00 AM Scheduled Provider: Location:[facility] Appointment Type:URO Nurse Visit Diagnostic Tests Pending * [facility] Appointment Date:09/14/2023 11:00:00 AM Scheduled Provider: Location:[facility] Appointment Type:URO Nurse Visit [facility] evaluation + Plan note Future Appointments Appointment Date:10/20/2023 11:00:00 AM Scheduled Provider: [facility] [facility] Appointment Type:URO Nurse Visit [facility] evaluation + Plan note Future Appointments Appointment Date:11/16/2023 11:00:00 AM Scheduled Provider: Location:[facility] Appointment Type:URO Nurse Visit Diagnostic Tests Pending * [facility] Diagnosis Lumbar stenosis with neurogenic claudication- Primary Spinal stenosis, lumbar region, with neurogenic claudication Idiopathic hypotension Hypotension, unspecified documented in this encounter [facility] Work Phone: evaluation noteNo [facility] Other evaluation note* Diagnosis NO SHOW- Primary [facility] Diagnosis Postlaminectomy syndrome of lumbar region Postlaminectomy syndrome, lumbar region Pain in thoracic spine Spinal cord stimulator status Other postprocedural status [facility] Diagnosis Radiculopathy of lumbar region Thoracic or lumbosacral neuritis or radiculitis, unspecified documented in this encounter [facility] [place] [facility]* Diagnosis Pain in thoracic spine S/P insertion of spinal cord stimulator [facility] Narrative No data available for this section [facility] Hospital Discharge instructions No data available for this section [facility] progress note No data available for this section [facility] reason for referral (narrative)* Reason Home physical therap y evaluation and treatment requested. Diagnosis 1 Hypotension, unspeci fied hypotension type (I95.9) Diagnosis 2 Diabetes (E11.9) Diagnosis 3 Parkinsonism (G20) Diagnosis 4 Neuropathy (G62.9) Diagnosis 5 Failed back syndrome (M96.1) Diagnosis 6 Risk for falls (Z91. 81) Referral Organization [facility] [place] Referring Provider First Name Ellen Referring Provider Last Name Leyda Referring Provider Specialty Family Prac candice Referred Organization [facility]care Referred Address [address] [place] [address],[facility] Referred Provider Specialty Physical The rapist Referral Priority Routine Vee24 Other Reason for visit Narrative* Auth/Cert Specialty Diagnoses / Procedures Referred By Agustina molina Referred To Contact Diagnoses Lumbosacral spinal stenosis LUMBOSACRAL SPINAL STENOSIS Procedures POSTERIOR SEGMENTAL INSTRUMENTATION 3-[address] INSJ BIOMCHN DEV INTERVERTEBRAL DSC SPC W/ARTHRD CT ALLOGRAFT FOR SPINE SURGERY ONLY MORSELIZED CT ARTHRODESIS COMBINED TQ 1NTRSPC LUMBAR CT ALEGRIA FACETEC/FORAMOT DRG ARTHRD LUMBAR [address] ALEGRIA FACETEC/FORAMOT DRG ARTHRD LMBR EA ADDL SGM CT ARTHRODESIS PST/PSTLAT TQ 1NTRSPC EA ADDL NTRSPC L2-S1 DECOMPRESSION L2-S1 POSTERIOR FUSION WITH ILIAC BOLTS, L5-S1 TLIF Frank Oden MD [address] [place] [address] [place] [address] [facility] [address] [place] [address] Referral ID Status Reason Start Date Expiration Date Visits Re quested Visits Authorized [id number] 1 1 [employer] Phone: Summary Purpose Family History No Family History Records FoundUnknown Family Member Name Dates Details Family history of arterioscl erotic cardiovascular disease: Brother(V17.49, Z82.49) Status:Active Family history of malignant neoplasm of brain: Brother(V16.8, Z80.8) Status:Active Unknown Family Member Name Dates Details Family history of arterioscl erotic cardiovascular disease: Brother(V17.49, Z82.49) Status:Active Family history of malignant neoplasm of brain: Brother(V16.8, Z80.8) Status:Active Unknown Family Member Name Dates Details Family history of arterioscl erotic cardiovascular disease: Brother(V17.49, Z82.49) Status:Active Family history of malignant neoplasm of brain: Brother(V16.8, Z80.8) Status:Active Unknown Family Member Name Dates Details Family history of arterioscl erotic cardiovascular disease: Brother(V17.49, Z82.49) Status:Active Family history of malignant neoplasm of brain: Brother(V16.8, Z80.8) Status:Active Unknown Family Member Name Dates Details Family history of arterioscl erotic cardiovascular disease: Brother(V17.49, Z82.49) Status:Active Family history of malignant neoplasm of brain: Brother(V16.8, Z80.8) Status:Active Advance Directives No Advanced Directives Records FoundDocuments on File Type Date Recorded 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 Advance Directive(s) 11/08/2021 10:04 AM Advance Directive(s) 09/25/2020 9:19 AM Advance Directive(s) 05/03/2020 10:06 AM Advance Directive(s) 11/08/2019 7:49 AM Advance Directive(s) 03/04/2018 1:07 PM Advance Directive(s) 03/04/2018 1:11 PM Advance Directive(s) 04/15/2017 11:34 AM Advance Directive(s) 06/05/2016 8:37 AM Advance Directive(s) 05/08/2016 8:58 AM Latest Code Status on File Code Status Date Activated Date Inactivated Comments Full Code 02/13/2022 7:01 AM Full Code 02/07/2022 8:29 AM 02/07/2022 4:12 PM Latest Code Status on File Code Status Date Activated Date Inactivated Comments DNR-CC 12/03/2022 3:20 PM DNR Order Discussed With: Patient DNR-CCA 12/01/2022 2:02 PM 12/03/2022 3:20 PM Full Code 11/20/2022 6:26 PM 12/01/2022 2:01 PM Full Code Order Discussed With: Patient Latest Code Status on File Code Status Date Activated Date Inactivated Comments DNR-CC 12/03/2022 3:20 PM 12/06/2022 7:51 PM Latest Code Status on File Code Status Date Activated Date Inactivated Comments DNR-CC 12/03/2022 3:20 PM 12/06/2022 7:51 PM Question Answer Comments DNR Order Discussed With: Patient Code Status History Code Status Date Activated Date Inactivated Comments DNR-CCA 12/01/2022 2:02 PM 12/03/2022 3:20 PM Question Answer Comments DNR Order Discussed With: Patient Full Code 11/20/2022 6:26 PM 12/01/2022 2:01 PM Question Answer Comments Full Code Order Discussed With: Patient Hospital Course Note HNO ID: [id number] Author: Rolly Naik Service: Orthopaedic Surgery Author Type: Physician Deck Worker Type: Discharge Summary Filed: 11/12/2019 2:21 PM Note Text: Attestation signed by Steven Guevara Jr. at 11/14/2019 7:06 AM agree DISCHARGE SUMMARY Patient Name: Alisia Correa : 1960 ADMISSION DATE: 11/08/2019 DISCHARGE DATE: 11/09/2019 Attending Physician: Steven Guevara Jr. Primary Diagnosis: Osteoarthritis of left hip [M16.12] Operations During Hospitalization: Procedure(s) (LRB): ARTHROPLASTY REPLACE JOINT TOTAL HIP (Left) Procedures During Hospitalization: No procedures performed Hospital Course: Alisia is a 59 year old male complaining of left Hip pain not responsive to a comprehensive course of conservative treatment. Left hip total arthroplasty was proposed and the patient wish (more content not included)... Note HNO ID: [id number] Author: Jason Guevara Jr. Service: Orthopaedic Surgery Author Type: Physician Type: Discharge Summary Filed: 05/04/2020 7:55 AM Note Text: DISCHARGE SUMMARY Patient Name: Alisia Correa : 1960 ADMISSION DATE: 05/03/2020 DISCHARGE DATE: 05/04/2020 Attending Physician: Steven Guevara Jr. Primary Diagnosis: Osteoarthritis of right hip [M16.11] Operations During Hospitalization: Procedure(s) (LRB): ARTHROPLASTY REPLACE JOINT TOTAL HIP (Right) Procedures During Hospitalization: No procedures performed Hospital Course: Alisia is a 59 year old male complaining of right Hip pain not responsive to a comprehensive course of conservative treatment. Right hip total arthroplasty was proposed and the patient wishes to proceed and was medically cleared prior to the procedure. Patient underwent a Right hip total arthroplasty and was transferred to the PACU in stable condition, He was then admitted to the hospital. Post operatively He did well. Post- operativ (more content not included)... Note HNO ID: [id number] Author: Judy Mathews Service: ? Author Type: Nurse Optometry Doctor Type: Anesthesia Procedure Notes Filed: 05/03/2020 1:32 PM Note Text: ANESTHESIOLOGY PROCEDURE NOTE Airway General Information Procedure Start Time/Medication Administration: 05/03/2020 12:55 PM Patient location during procedure: OR Staffing SHEET METAL JOURNEYMAN: Kathleen Mathews Performed by: APRIL Indications and Patient Condition Preoxygenated: yes Patient position: sniffing Manual In-Line Stabilization: No Difficult Mask: No Indications for airway management: anesthesia anesthesia circuit Method: rapid sequence Cricoid Pressure: No Final Airway Details Final airway type: endotracheal airway Final Endotracheal Airway: ETT Cuffed: yes Devices used: Glidescope Endotracheal tube insertion site: oral Blade: Sybil Blade size: #4 ETT size (mm): 7.5 Measured from: lips Measurement (cm): 22 Placement verified by: chest auscultation and capnometry Number of attempts at approach: 1 Airway not difficult Comments Ea (more content not included)... Procedure Findings Note HNO ID: [id number] Author: Judy Mathews Service: ? Author Type: Nurse Optometry Doctor Type: Anesthesia Procedure Notes Filed: 05/03/2020 1:32 PM Note Text: ANESTHESIOLOGY PROCEDURE NOTE Airway General Information Procedure Start Time/Medication Administration: 05/03/2020 12:55 PM Patient location during procedure: OR Staffing SHEET METAL JOURNEYMAN: Kathleen Mathews Performed by: APRIL Indications and Patient Condition Preoxygenated: yes Patient position: sniffing Manual In-Line Stabilization: No Difficult Mask: No Indications for airway management: anesthesia anesthesia circuit Method: rapid sequence Cricoid Pressure: No Final Airway Details Final airway type: endotracheal airway Final Endotracheal Airway: ETT Cuffed: yes Devices used: Glidescope Endotracheal tube insertion site: oral Blade: Sybil Blade size: #4 ETT size (mm): 7.5 Measured from: lips Measurement (cm): 22 Placement verified by: chest auscultation and capnometry Number of attempts at approach: 1 Airway not difficult Comments Ea (more content not included)... 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) Referral Organization [facility] [place] Referring Provider First Name Ellen Referring Provider Last Name Kuns Referring Provider Specialty Family Prac candice Referred Organization [facility] Gastroenterolo gy Referred Provider Yifan Gama Referred Address [address],[place],[address] Referred Provider Specialty Gastroentero logy Referral Priority Routine General Notes Tomeka Hussein 021 10:28:40 AM >Graciela, is this suppose to be urgentVemarahGraciela grewal Sebastien 08/06/2021 10:49:26 AM > no, sorry must have accidentally made urgent :) Health Concerns Infection Onset Date Last Indicated Resolved Time COVID-19 Confirmed Comment:20 day 11/26/22: Pt requiring HiFlo from 2 L NCsvitlanaadron started 11/20/2022 11/20/2022 Additional Source Comments (unrecognized sect ion and content) No Status Records FoundNo Status Records FoundNo Status Records FoundNo Status Records FoundNo Status Records FoundNo Status Records FoundNo Status Records FoundNo Status Records FoundNo Status Records FoundNo Status Records FoundNo Status Records FoundNo Status Records FoundNo Status Records Found INFORMATION SOURCE (unrecogn ized section and content) DATE CREATED AUTHOR 04/09/2018 [facility] DATE CREATED AUTHOR AUTHOR'S ORGANIZ ATION 04/14/2018 [facility] DATE CREATED AUTHOR AUTHOR'S ORGANIZ ATION 04/14/2018 [facility] DATE CREATED AUTHOR AUTHOR'S ORGANIZ ATION 05/12/2020 [facility] DATE CREATED AUTHOR AUTHOR'S ORGANIZ ATION 09/17/2020 [facility] DATE CREATED AUTHOR AUTHOR'S ORGANIZ ATION 08/18/2021 [facility] DATE CREATED AUTHOR AUTHOR'S ORGANIZ ATION 09/10/2021 [facility] DATE CREATED AUTHOR AUTHOR'S ORGANIZ ATION 02/23/2022 [facility] DATE CREATED AUTHOR AUTHOR'S ORGANIZ ATION 12/15/2022 [facility] DATE CREATED AUTHOR AUTHOR'S ORGANIZ ATION 12/26/2022 [facility] DATE CREATED AUTHOR AUTHOR'S ORGANIZ ATION 03/29/2023 [facility] DATE CREATED AUTHOR AUTHOR'S ORGANIZ ATION 08/25/2023 [facility] DATE CREATED AUTHOR AUTHOR'S ORGANIZ ATION 10/24/2023 [facility] Source Comments (unrecognize d section and content) In the event this informatio n is protected by the Federal Confidentiality of Alcohol and Drug Abuse Patient Records regulations: The Federal rules restrict any use of the information to criminally investigate or prosecute any alcohol or drug abuse patient.[facility] the event this information is protected by the Federal Confidentiality of Alcohol and Drug Abuse Patient Records regulations: The Federal rules restrict any use of the information to criminally investigate or prosecute any alcohol or drug abuse patient.[facility] the event this information is protected by the Federal Confidentiality of Alcohol and Drug Abuse Patient Records regulations: The Federal rules restrict any use of the information to criminally investigate or prosecute any alcohol or drug abuse patient.[facility] the event this information is protected by the Federal Confidentiality of Alcohol and Drug Abuse Patient Records regulations: The Federal rules restrict any use of the information to criminally investigate or prosecute any alcohol or drug abuse patient.[facility] the event this information is protected by the Federal Confidentiality of Alcohol and Drug Abuse Patient Records regulations: The Federal rules restrict any use of the information to criminally investigate or prosecute any alcohol or drug abuse patient.[facility] the event this information is protected by the Federal Confidentiality of Alcohol and Drug Abuse Patient Records regulations: The Federal rules restrict any use of the information to criminally investigate or prosecute any alcohol or drug abuse patient.[facility] Reason for Visit (unrecogniz ed section and content) Reason Comments Post Op Reason Comments Medication Problem Reason Onset Date Comments No Show 12/24/2022 No show Reason Comments Radiology CT Care Teams (unrecognized sec tion and content) J2Ee Android Developer Relationship Specialty Start Date End Date Ellen Crabtree Boogie [address] [place] [phone] PCP - General 06/10/02 J2Ee Android Developer Relationship Specialty Start Date End Date Ellen Crabtree DO PCP - General Family Medicine 01/23/22 J2Ee Android Developer Relationship Specialty Start Date End Date Michidavion Ellen Hyman [address] [place] [phone] PCP - General 06/10/02 J2Ee Android Developer Relationship Specialty Start Date End Date Leyda Ellen Hyman [address] [place] [address] [phone] PCP - General 06/10/02 J2Ee Android Developer Relationship Specialty Start Date End Date Ellen Crabtree [address] [place] [phone] PCP - General 06/10/02 J2Ee Android Developer Relationship Specialty Start Date End Date Ellen Crabtree [address] [place] [phone] PCP - General 06/10/02 J2Ee Android Developer Relationship Specialty Start Date End Date Ellen Crabtree [address] [place] [phone] PCP - General 06/10/02 Ordered Prescriptions (unrec ognized section and content) Prescription Sig Dispensed Refills Start Date End Da te cyclobenzaprine (FLEXERIL) 10 MG tablet Take 1 tablet by mouth 3 times daily as needed for Muscle spasms 30 tablet 0 02/13/2022 02/23/2022 oxyCODONE-acetaminophen (PERCOCET) 5-325 MG per tabletIndications:Lumbar stenosis with neurogenic claudication Take 1 tablet by mouth every 6 hours as needed for Pain for up to 7 days. 28 tablet 0 02/13/2022 02/20/2022 Scheduled Active and Recently Administ ered Medications (unrecognized section and content) Medication Order 02/16/2022 02/17/2022 02/18/2022 acarbose (PRECOSE) tablet 25 mg 25 mg, Oral, 3 TIMES DAILY WITH MEALS, First dose on Thu02/07/22 at 1700, Until Discontinued 0800 (Automatically Held - Provider: Evelina Parra MD)1200 (Automatically Held - Provider: Evelina Parra MD)1700 (Automatically Held - Provider: Evelina Parra MD) 0800 (Automatically Held - Provider: Evelina Parra MD)1200 (Automatically Held - Provider: Evelina Parra MD)1700 (Automatically Held - Provider: Evelina Parra MD) 0800 (Automatically Held - Provider: Evelina Parra MD)1200 (Automatically Held - Provider: Evelina Parra MD)1700 (Automatically Held - Provider: Evelina Parra MD) atorvastatin (LIPITOR) tablet 10 mg 10 mg, Oral, NIGHTLY, First dose on Thu02/07/22 at 2100, Until Discontinued 210 (Given - Provider: Peace Sol RN) 2019 (Given - Provider: Gladis Lezama RN) 2100 (Due) bisacodyl (DULCOLAX) EC tablet 5 mg 5 mg, Oral, DAILY, First dose on Thu02/07/22 at 1645, Until Discontinued, Do not crush or break., Post-op 0858 (Held - Provider: Malik De La Garza RN - Reason: Order parameters not met) 0942 (Not Given - Provider: Marion Sharma RN - Reason: Patient/family refused) 0841 (Not Given - Provider: Nevaeh Oviedo RN - Reason: Other - Comment: loose stools) carbidopa-levodopa (SINEMET CR) 25-100 MG per extended release tablet 1 tablet(Linked Group 1) 1 tablet, Oral, 4 TIMES DAILY, First dose on Thu02/07/22 at 1800, Until Discontinued, Do Not Crush or Chew 0247 (Given - Provider: Macrina Garay RN)1355 (Given - Provider: Malik De La Garza RN)1728 (Given - Provider: Malik De La Garza RN)2109 (Given - Provider: Peace Sol RN) 0151 (Given - Provider: Peace Sol RN)1344 (Given - Provider: Marion Sharma RN)1805 (Given - Provider: Marion Sharma RN)2219 (Given - Provider: Gladis Lezama RN) 0222 (Given - Provider: Gladis Lezama RN)1400 (Due)1800 (Due)2200 (Due) carbidopa-levodopa (SINEMET CR) 25-100 MG per extended release tablet 2 tablet(Linked Group 1) 2 tablet, Oral, 2 TIMES DAILY, First dose on Thu02/08/22 at 0600, Until Discontinued, Do Not Crush or Chew 0617 (Given - Provider: Lyn Hammond, RN)0857 (Given - Provider: Malik De La Garza RN) 0518 (Given - Provider: Peace Sol RN)0942 (Given - Provider: Marion Sharma RN) 0533 (Given - Provider: Gladis Lezama RN)1000 (Given - Provider: Nevaeh Oviedo RN) carbidopa-levodopa (SINEMET) 25-100 MG per tablet 1 tablet 1 tablet, Oral, 3 TIMES DAILY, First dose on Thu02/13/22 at 1800, Until Discontinued, Takes at 1400, 1800, and 2200 1355 (Given - Provider: Malik De La Garza RN)1729 (Given - Provider: Malik De La Garza RN)211 (Given - Provider: Peace Sol RN) 1344 (Given - Provider: Marion Sharma RN)1805 (Given - Provider: Marion Sharma, ALFONSO)2219 (Given - Provider: Gladis Lezama RN) 1400 (Due)1800 (Due)2200 (Due) carbidopa-levodopa (SINEMET) 25-100 MG per tablet 2 tablet 2 tablet, Oral, 2 TIMES DAILY, First dose on Thu02/14/22 at 0600, Until Discontinued, Takes at 0600 and 1000 0617 (Given - Provider: Lyn Hammond RN)0857 (Given - Provider: Malik De La Garza RN) 0518 (Given - Provider: Peace Sol RN)0942 (Given - Provider: Marion Sharma RN) 0533 (Given - Provider: Gladis Lezama RN)1000 (Given - Provider: Nevaeh Oviedo RN) DULoxetine (CYMBALTA) extended release capsule 60 mg 60 mg, Oral, NIGHTLY, First dose on Thu02/07/22 at 2100, Until Discontinued, Do not crush or break. May add contents of capsule to apple juice or apple sauce, but not chocolate. 2109 (Given - Provider: Peace Sol RN) 2018 (Given - Provider: Gladis Lezama RN) 2100 (Due) ezetimibe (ZETIA) tablet 10 mg 10 mg, Oral, NIGHTLY, First dose (after last reorder) on Thu02/07/22 at 2100, Until Discontinued 2109 (Given - Provider: Peace Sol RN) 2018 (Given - Provider: Gladis Lezama RN) 2099 (Due) insulin lispro (HUMALOG) injection vial 0-3 Units 0-3 Units, SubCUTAneous, NIGHTLY, First dose on Thu02/07/22 at 2100, Until Discontinued, If continuous tube feedings/TPN/NPO, give correction dose based on result, no reduction in dose. If eating or bolus tube feeding: Corrective Bedtime (50%) Low Dose Algorithm Glucose: Dose: 70-139 No Insulin 140-249 1 Unit 250-349 2 Units Over 350 3 Units 2110 (Not Given - Provider: Peace Sol RN - Reason: Order parameters not met - Comment: 116) 2018 (Not Given - Provider: Gladis Lezama RN - Reason: Order parameters not met) 2099 (Due) insulin lispro (HUMALOG) injection vial 0-6 Units 0-6 Units, SubCUTAneous, 3 TIMES DAILY WITH MEALS, First dose on Thu02/07/22 at 1800, Until Discontinued, Corrective Low Dose Algorithm Glucose: Dose: 70-139 No Insulin 140-199 1 Unit 200-249 2 Units 250-299 3 Units 300-349 4 Units 350-399 5 Units Over 399 6 Units 0858 (Held - Provider: Malik De La Garza RN - Reason: Order parameters not met)1149 (Held - Provider: Malik De La Garza RN - Reason: Order parameters not met)1729 (Held - Provider: Malik De La Garza RN - Reason: Order parameters not met) 0736 (Not Given - Provider: Marion Sharma RN - Reason: Order parameters not met - Comment: chem 99)1142 (Not Given - Provider: Marion Sharma RN - Reason: Order parameters not met - Comment: chem 88)1742 (Not Given - Provider: Marion Sharma RN - Reason: Order parameters not met - Comment: chem 88) 0844 (Not Given - Provider: Nevaeh Oviedo RN - Reason: Order parameters not met)1121 (Not Given - Provider: Nevaeh Oviedo RN - Reason: Order parameters not met)1700 (Due) metFORMIN (GLUCOPHAGE) tablet 500 mg 500 mg, Oral, 2 TIMES DAILY WITH MEALS, First dose on Thu02/07/22 at 1700, Until Discontinued 0858 (Given - Provider: Malik De La Garza RN)1729 (Given - Provider: Malik De La Garza RN) 0942 (Given - Provider: Marion Sharma RN)1806 (Given - Provider: Marion Sharma RN) 0848 (Given - Provider: Nevaeh Oviedo RN)1700 (Due) midodrine (PROAMATINE) tablet 15 mg 15 mg, Oral, 3 TIMES DAILY WITH MEALS, First dose on Thu02/10/22 at 1300, Until Discontinued, Do not give after 1800 or within 4 hrs of bedtime. 0856 (Given - Provider: Malik De La Garza RN)1150 (Given - Provider: Malik De La Garza RN)1728 (Given - Provider: Malik De La Garza RN) 0942 (Given - Provider: Marion Sharma RN)1144 (Given - Provider: Marion Sharma RN)1806 (Given - Provider: Marion Sharma RN) 0855 (Given - Provider: Nevaeh Oviedo RN)1200 (Due)1700 (Due) mometasone-formoterol (DULERA) 200-5 MCG/ACT inhaler 2 puff 2 puff, Inhalation, 2 TIMES DAILY, First dose on Thu02/07/22 at 2000, Until Discontinued, Substituted for Budesonide-Formoterol (SYMBICORT). 0821 (Given - Provider: Irlanda Das RCP)1756 (Given - Provider: Marci Rivera RCP)1999 (Canceled Entry - Provider: Marci Rivera RCP) 0818 (Given - Provider: Iveth Noe RCP)1821 (Given - Provider: Vickey Boykin RCP) 0845 (Not Given - Provider: Vickey Boykin RCP - Reason: Other - Comment: with therapy)1900 (Due - Provider: Iveth Noe RCP) pantoprazole (PROTONIX) tablet 40 mg 40 mg, Oral, DAILY, First dose on Thu02/07/22 at 1645, Until Discontinued, Do not crush or break. 0858 (Given - Provider: Malik De La Garza RN) 0942 (Given - Provider: Marion Sharma RN) 0849 (Given - Provider: Nevaeh Oviedo, RN) polyethylene glycol (GLYCOLAX) packet 17 g 17 g, Oral, DAILY, First dose on Thu02/07/22 at 1645, Until Discontinued, Post-op 0858 (Held - Provider: Malik De La Garza RN - Reason: Order parameters not met) 0942 (Not Given - Provider: Marion Sharma RN - Reason: Patient/family refused) 0845 (Not Given - Provider: Nevaeh Oviedo RN - Reason: Other - Comment: loose stools) pregabalin (LYRICA) capsule 300 mg 300 mg, Oral, 2 TIMES DAILY, First dose (after last reorder) on Thu02/07/22 at 2100, Until Discontinued 08 (Given - Provider: Malik De La Garza RN)2110 (Given - Provider: Peace Sol RN) 0942 (Given - Provider: Marion Sharma RN)2019 (Given - Provider: Gladis Lezama RN) 08 (Given - Provider: Nevaeh Oviedo RN)2099 (Due) QUEtiapine (SEROQUEL) tablet 25 mg 25 mg, Oral, NIGHTLY, First dose on Thu02/07/22 at 2100, Until Discontinued 2112 (Given - Provider: Peace Sol, RN) 2014 (Given - Provider: Gladis Lezama RN) 2099 (Due) sennosides-docusate sodium (SENOKOT-S) 8.6-50 MG tablet 1 tablet 1 tablet, Oral, 2 TIMES DAILY, First dose on Thu02/07/22 at 2100, Until Discontinued, Post-op 0858 (Held - Provider: Malik De La Garza RN - Reason: Order parameters not met)2110 (Not Given - Provider: Peace Sol RN - Reason: Patient/family refused) 0942 (Not Given - Provider: Marion Sharma RN - Reason: Patient/family refused)2005 (Not Given - Provider: Gladis Lezama RN - Reason: Patient/family refused) 0845 (Not Given - Provider: Nevaeh Oviedo RN - Reason: Other - Comment: loose stools)2099 (Due) sodium chloride flush 0.9 % injection 5-40 mL 5-40 mL, IntraVENous, EVERY 12 HOURS SCHEDULED (2 times per day), First dose on Thu02/07/22 at 2100, Until Discontinued, For Line Patency: Peripheral IV = 5 mL; Midline or Central Line = 10 mL/lumen. If following IV push medication, administer flush at same rate as the IV push. Flush volume is determined by type of infusion therapy being given. For non-viscous solutions use: Peripheral IV = 5 mL Midline or Central Line = 10 mL/lumen For viscous solutions (i.e. blood components, parenteral nutrition, contrast media, or after obtaining blood sample) use: Peripheral IV = 10 mL Midline or Central Line = 20 mL/lumen, Post-op 0859 (Given - Provider: Malik De La Garza RN)211 (Given - Provider: Peace Sol RN) 0949 (Given - Provider: Marion Sharma, RN)2019 (Given - Provider: Gladis Lezama RN) 0857 (Not Given - Provider: Nevaeh Oviedo, RN - Reason: Loss of IV access)2100 (Due) tolterodine (DETROL LA) extended release capsule 4 mg 4 mg, Oral, DAILY, First dose on Thu02/07/22 at 1900, Until Discontinued, Please select a reason the therapeutic interchange was not accepted: Other (Please Comment), Do not crush or break. 0858 (Given - Provider: Malik De La Garza RN) 0942 (Given - Provider: Marion Sharma, ALFONSO) 0849 (Given - Provider: Nevaeh Oviedo, RN) topiramate (TOPAMAX) tablet 100 mg 100 mg, Oral, DAILY, First dose on Thu02/07/22 at 1645, Until Discontinued, It is not recommended to crush, break, or chew immediate release tablets due to bitter taste. 0858 (Given - Provider: Malik De La Garza RN) 0942 (Given - Provider: Marion Sharma, RN) 0850 (Given - Provider: Nevaeh Oviedo, RN) PRN Medication Order 02/16/2022 02/17/2022 02/18/2022 0.9 % sodium chloride infusion IntraVENous, at 5-250 mL/hr, PRN, if patient receiving piggyback infusions and maintenance fluids are not ordered OR KVO fluids to protect IV site / prevent frequent line interruptions/ long duration, Starting on Thu02/07/22 at 1617, For piggyback infusion, administer at same rate as piggyback for a total of 25 mL. Enter 25 mL into dose field and piggyback rate into rate field of order. If piggyback is infusing at a rate less than 100 mL/hr, enter 25 mL into dose field and 100 mL/hr into rate field of order. For KVO fluids, enter rate of 20 mL/hr or less into rate field of order., Post-op acetaminophen (TYLENOL) tablet 650 mg 650 mg, Oral, EVERY 6 HOURS PRN, Starting on Thu02/07/22 at 1617, Until Discontinued, Pain Mild (1-3), Fever, Maximum dose of acetaminophen is 4000 mg from all sources in 24 hours., Post-op 0856 (Given - Provider: Malik De La Garza RN) albuterol sulfate HFA 108 (90 Base) MCG/ACT inhaler 1 puff 1 puff, Inhalation, PRN, Starting on Thu02/07/22 at 1617, Until Discontinued, Wheezing, Initiate RT Bronchodilator Protocol: Yes bisacodyl (DULCOLAX) suppository 10 mg 10 mg, Rectal, DAILY PRN, Starting on Thu02/07/22 at 1617, Until Discontinued, Constipation, First line therapy for constipation, Post-op cyclobenzaprine (FLEXERIL) tablet 10 mg 10 mg, Oral, 3 TIMES DAILY PRN, Starting on Thu02/07/22 at 1617, Until Discontinued, Muscle spasms, Post-op 0856 (Given - Provider: Malik De La Garza RN)2111 (Given - Provider: Peace Sol RN) dextrose 5 % solution 100 mL/hr, IntraVENous, PRN, Low blood sugar, Starting on Thu02/11/22 at 2002, Start infusion following administration of dextrose 50% or glucagon. dextrose bolus (hypoglycemia) 10% 125 mL 125 mL, IntraVENous, at 937.5 mL/hr, Administer over 8 Minutes, PRN, Other, Hypoglycemia, Starting on Thu02/11/22 at 2050, Sub for D50% If patient NPO, unconscious or unable to swallow AND If Blood Glucose between 40 and 69 mg/dL: Give 125 mL (12.5 g) D10% IV over 8 minutes. If Blood Glucose is less than 40 mg/dL: Give 250 mL (25 g) D10% IV over 16 minutes. Repeat Blood Glucose in 15 minutes. If blood glucose is less than 70 mg/dL, repeat treatment and recheck blood glucose in 15 minutes x 2 and notify provider. When Dextrose 10% is given for hypoglycemia start D5W at 100 mL/hour until Provider can be reached. fleet rectal enema 1 enema 1 enema, Rectal, DAILY PRN, Starting on Thu02/07/22 at 1617, Until Discontinued, Constipation, Second line therapy for constipation, After 24 hours, if no result from first line PRN therapy, give second line therapy in combination with first line therapy., Post-op glucagon (rDNA) injection 1 mg 1 mg, IntraMUSCular, PRN, Starting on Thu02/11/22 at 2003, Until Discontinued, Low blood sugar, Blood glucose less than 70 mg/dL and patient NOT ALERT or NPO and does not have IV access., After administration, attempt intravenous access and start D5W at 100 mL/hr. Repeat blood glucose in 15 minutes x2 and notify provider. glucose chewable tablet 16 g 16 g (4 tablet), Oral, PRN, Starting on Thu02/11/22 at 2050, Until Discontinued, Low blood sugar, If blood glucose less than 70 mg/dL and patient ALERT and TOLERATING PO, give 4 tablets (16 grams) Repeat blood glucose in 15 minutes. If blood glucose is less than 70 mg/dL, repeat treatment and recheck blood glucose in 15 minutes x2 and notify provider. morphine (PF) injection 2 mg 2 mg, IntraVENous, EVERY 4 HOURS PRN, Starting on Thu02/07/22 at 1827, Until Discontinued, Pain Severe (7-10), If oral and IV narcotics ordered, use oral first and only use IV if oral is ineffective or cannot take oral. Do Not give oral and IV within 1 hour of each other unless specifically ordered. ondansetron (ZOFRAN) injection 4 mg(Linked Group 2) 4 mg, IntraVENous, EVERY 6 HOURS PRN, Starting on Thu02/07/22 at 1617, Until Discontinued, Nausea, Vomiting, Administer if oral route cannot be used., Post-op ondansetron (ZOFRAN-ODT) disintegrating tablet 4 mg(Linked Group 2) 4 mg, Oral, EVERY 8 HOURS PRN, Starting on Thu02/07/22 at 1617, Until Discontinued, Nausea, Vomiting, Post-op oxyCODONE-acetaminophen (PERCOCET) 5-325 MG per tablet 1 tablet(Linked Group 3) Mg/kg dosing is based on the oxycodone component., 1 tablet, Oral, EVERY 6 HOURS PRN, Starting on Thu02/07/22 at 1827, Until Discontinued, Pain Moderate (4-6), Maximum dose of acetaminophen is 4000 mg from all sources in 24 hours. 0250 (Given - Provider: Macrina Garay RN)0856 (See Alternative - Provider: Malik De La Garza RN)1541 (See Alternative - Provider: Malik De La Garza RN) 0518 (Given - Provider: Peace Sol RN)1346 (Given - Provider: Marion Sharma, ALFONSO)2004 (Given - Provider: Gladis Lezama RN) 0531 (Given - Provider: Gladis Lezama RN)1145 (Given - Provider: Nevaeh Oviedo, RN) oxyCODONE-acetaminophen (PERCOCET) 5-325 MG per tablet 1 tablet(Linked Group 3) Mg/kg dosing is based on the oxycodone component., 1 tablet, Oral, EVERY 6 HOURS PRN, Starting on Thu02/07/22 at 1827, Until Discontinued, Pain Severe (7-10), Maximum dose of acetaminophen is 4000 mg from all sources in 24 hours. 0250 (See Alternative - Provider: Macrina Garay RN)0856 (Given - Provider: Malik De La Garza RN)1541 (Given - Provider: Malik De La Garza RN) 0518 (See Alternative - Provider: Peace Sol RN)1346 (See Alternative - Provider: Marion Sharma, ALFONSO)2004 (See Alternative - Provider: Gladis Lezama RN) 0531 (See Alternative - Provider: Gladis Lezama RN)1145 (See Alternative - Provider: Nevaeh Oviedo RN) sodium chloride flush 0.9 % injection 5-40 mL 5-40 mL, IntraVENous, PRN, Starting on Thu02/07/22 at 1617, Until Discontinued, Line Care, After every IV line use, For Line Patency: Peripheral IV = 5 mL; Midline or Central Line = 10 mL/lumen. If following IV push medication, administer flush at same rate as the IV push. Flush volume is determined by type of infusion therapy being given. For non-viscous solutions use: Peripheral IV = 5 mL Midline or Central Line = 10 mL/lumen For viscous solutions (i.e. blood components, parenteral nutrition, contrast media, or after obtaining blood sample) use: Peripheral IV = 10 mL Midline or Central Line = 20 mL/lumen, Post-op traMADol (ULTRAM) tablet 50 mg 50 mg, Oral, EVERY 6 HOURS PRN, Starting on 02/08/22 at 2130, Until Discontinued, Pain Moderate (4-6), pain 1947 (Given - Provider: Peace Sol RN) Linked Groups Order Group 1: carbidopa-levodopa (SINEMET CR) 25-100 MG per extended release tablet 1 tabletJump to med 1 tablet, Oral, 4 TIMES DAILY, First dose on Thu02/07/22 at 1800, Until Discontinued
Do Not Crush or Chew
And carbidopa-levodopa (SINEMET CR) 25-100 MG per extended release tablet 2 tabletJump to med 2 tablet, Oral, 2 TIMES DAILY, First dose on 02/08/22 at 0600, Until Discontinued
Do Not Crush or Chew
Group 2: ondansetron (ZOFRAN-ODT) disintegrating tablet 4 mgJump to med 4 mg, Oral, EVERY 8 HOURS PRN, Starting on Thu02/07/22 at 1617, Until Discontinued, Nausea, Vomiting, Post-op Or ondansetron (ZOFRAN) injection 4 mgJump to med 4 mg, IntraVENous, EVERY 6 HOURS PRN, Starting on Thu02/07/22 at 1617, Until Discontinued, Nausea, Vomiting
Administer if oral route cannot be used.
Post-op Group 3: oxyCODONE-acetaminophen (PERCOCET) 5-325 MG per tablet 1 tabletJump to med Mg/kg dosing is based on the oxycodone component.
1 tablet, Oral, EVERY 6 HOURS PRN, Starting on Thu02/07/22 at 1827, Until Discontinued, Pain Moderate (4-6)
Maximum dose of acetaminophen is 4000 mg from all sources in 24 hours.
Or oxyCODONE-acetaminophen (PERCOCET) 5-325 MG per tablet 1 tabletJump to med Mg/kg dosing is based on the oxycodone component.
1 tablet, Oral, EVERY 6 HOURS PRN, Starting on Thu02/07/22 at 1827, Until Discontinued, Pain Severe (7-10)
Maximum dose of acetaminophen is 4000 mg from all sources in 24 hours.
FOR RECORDS PERTAINING TO PATIENTS WHO ARE OR HAVE BEEN ENROLLED IN A CHEMICAL DEPENDENCY/SUBSTANCEABUSE PROGRAM, SOME INFORMATION MAY BE OMITTED. This clinical summary was aggregated from multiple sources. Caution should be exercised in using it in the provision of clinical care. This summary normalizes information from multiple sources, and as a consequence, information in this document may materially change the coding, format and clinical context of patient data. In addition, data may be omitted in some cases. CLINICAL DECISIONS SHOULD BE BASED ON THE PRIMARY CLINICAL RECORDS. [employer] provides no warranty or guarantee of the accuracy or completeness of information in this document.
[2023-10-28 21:18] VITALS: BP 218/114; PULSE 68; RESP 22; TEMP 36.7; O2SAT 98
--- NOTE | 2023-10-28 21:27 | ED_ITS ---
HPI - Male Genitourinary General Chief complaint: Urogenital-Male Stated complaint: PROSTATE AND BLADDER PAIN Time Seen by Provider: 10/28/23 21:16 Source: patient Mode of arrival: Wheelchair Limitations: no limitations and other Limitations comment: acute distress History of Present Illness HPI Narrative: 63-year-old male presents for evaluation of lower abdominal pain and bladder pain. He states that he has a suprapubic catheter that has not been draining since it was put in approximately a week ago by Dr. Ibarra. He states that it is full of shit and clogging his suprapubic catheter. He states that he has a neurogenic bladder from a prior back surgery. He has had the suprapubic catheter for 'some time He states that he has pain in his lower abdomen, back and pelvis because the carrington hasnt been draining. He is on an antibtioic called Hiprex prescribed by Dr Ibarra Related Data Home Medications Medication Instructions Recorded Confirmed acarbose 25 mg tablet 25 mg PO TID 08/20/23 08/20/23 atorvastatin 10 mg tablet 10 mg PO DAILY 08/20/23 08/20/23 benzonatate 100 mg capsule 100 mg PO DAILY 08/20/23 08/20/23 carbidopa 25 mg-levodopa 100 mg 2 tab PO BID 08/20/23 08/21/23 tablet diclofenac sodium 75 mg 75 mg PO BID 08/20/23 08/20/23 tablet,delayed release docusate sodium 100 mg capsule 100 mg PO DAILY 08/20/23 08/20/23 duloxetine 60 mg capsule,delayed 60 mg PO DAILY 08/20/23 08/21/23 release ezetimibe 10 mg tablet 10 mg PO DAILY 08/20/23 08/20/23 fludrocortisone 0.1 mg tablet 0.2 mg PO .QD 08/20/23 08/21/23 midodrine 5 mg tablet 15 mg PO DAILY 08/20/23 08/20/23 montelukast 10 mg tablet 10 mg PO .QHS 08/20/23 08/21/23 ondansetron HCl 4 mg tablet 4 mg PO DAILY PRN nausea and 08/20/23 08/20/23 vomiting oxycodone 5 mg tablet 5 mg PO DAILY PRN pain 08/20/23 08/20/23 pregabalin 300 mg capsule 300 mg PO BID 08/20/23 08/20/23 tolterodine 4 mg capsule,extended 4 mg PO DAILY 08/20/23 08/20/23 release 24 hr topiramate 100 mg tablet 100 mg PO BID 08/20/23 08/20/23 carbidopa ER 25 mg-levodopa 100 mg 1 tab PO QID 08/21/23 08/21/23 tablet,extended release potassium citrate 15 mEq (1,620 15 meq PO TID 08/21/23 08/21/23 mg) tablet,extended release venlafaxine 75 mg capsule,extended 75 mg PO DAILY 08/21/23 08/21/23 release 24 hr (Effexor XR) Previous Rx's Medication Instructions Recorded gentamicin 100 mg/100 mL in sodium 500 mg (500 mL) IV Q24H UTI 3 days 08/22/23 chloride(iso) intravenous piggyback Allergies Allergy/AdvReac Type Severity Reaction Status Date / Time moxifloxacin Allergy Intermediate Verified 10/28/23 21:25 celecoxib [From Celebrex] Allergy Mild Verified 10/28/23 21:25 clonazepam Allergy Severe Uncoded 10/28/23 21:25 levofloxacin Allergy Severe Uncoded 10/28/23 21:25 erythromycin Allergy Mild Uncoded 10/28/23 21:25 Review of Systems ROS Status of ROS 10 or more systems reviewed and unremark able except as noted in history and below [facility] Medical History (Updated 10/29/23 @ 00:22 by Kathi Enrique MD) UTI (urinary tract infection) ?N39.0 - Urinary tract infection, site not specified (ICD-10) 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N31.9 - Neuromuscular dysfunction of bladder, unspecified (ICD-10) Neuropathy ?G62.9 - Polyneuropathy, unspecified (ICD-10) Tonsillectomy planned FH: bilateral hip replacements ?Z82.69 - Family history of other diseases of the musculoskeletal system and connective tissue (ICD-10) Enlarged prostate ?N40.0 - Benign prostatic hyperplasia without lower urinary tract symptoms (ICD-10) 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, unspecified (ICD-10) 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 - Malignant (primary) neoplasm, unspecified (ICD-10) Esophageal cancer ?C15.9 - Malignant neoplasm of esophagus, unspecified (ICD-10) Barretts esophagus ?K22.70 - Rust's esophagus without dysplasia (ICD-10) GERD without esophagitis ?K21.9 - Gastro-esophageal reflux disease without esophagitis (ICD-10) Asthma ?J45.909 - Unspecified asthma, uncomplicated (ICD-10) COPD (chronic obstructive pulmonary disease) ?J44.9 - Chronic obstructive pulmonary disease, unspecified (ICD-10) Pneumonia ?J18.9 - Pneumonia, unspecified organism (ICD-10) COVID-19 ?U07.1 - COVID-19 (ICD-10) Kidney stones ?N20.0 - Calculus of kidney (ICD-10) Bladder stones ?N21.0 - Calculus in bladder (ICD-10) Type 2 diabetes mellitus ?E11.9 - Type 2 diabetes mellitus without complications (ICD-10) Hypotension ?I95.9 - Hypotension, unspecified (ICD-10) Surgical History (Updated 08/06/23 @ 08:15 by Jorge Contreras) H/O cystoscopy ?Z98.890 - Other specified postprocedural states (ICD-10) S/P insertion of spinal cord stimulator ?Z96.89 - Presence of other specified functional implants (ICD-10) Status post right rotator cuff repair ?Z98.890 - Other specified postprocedural states (ICD-10) H/O hand surgery ?Z98.890 - Other specified postprocedural states (ICD-10) History of left knee replacement ?Z96.652 - Presence of left artificial knee joint (ICD-10) History of left shoulder replacement ?Z96.612 - Presence of left artificial shoulder joint (ICD-10) Previous back surgery ?Z98.890 - Other specified postprocedural states (ICD-10) H/O gastric bypass ?Z98.84 - Bariatric surgery status (ICD-10) Family History (Updated 08/20/23 @ 20:33 by Barbara Mauro RN) Mother Family history of hypertension Family history of diabetes mellitus Family history of COPD (chronic obstructive pulmonary disease) Brother Family history of cancer Other Family history of CHF (congestive heart failure) Social History (Updated 08/20/23 @ 20:36 by Barbara Mauro RN) Within the past year, how often did you have a drink containing alcohol: never Within the past year, how often did you have six or more drinks on one occasion: never Score interpretation: A score less than 4 is consistent with normal alcohol consumption. Smoking status: Former smoker Highest level of school completed/degree received: some college, no degree Are you now , , , , never or living with a partner: In a typical week, how many times do you talk on the telephone with family, friends, or neighbors: 3 or more times per week How often do you get together with friends or relatives: 3 or more times per week Little interest or pleasure in doing things: several days Feeling down, depressed, or hopeless: several days Feel stressed/tense/nervous/anxious/difficulty sleeping: to some extent Do you think of yourself as: straight/heterosexual Gender Identity: male Exam Narrative Exam Narrative: Nurses note and vital signs reviewed and patient is not hypoxic. Blood pressure is noted to be elevated. General: Nontoxic but irritable overweight elderly male, he is in a wheelchair, yelling in pain, assisted to the bed by myself and the nursing staff. No respiratory distress Skin: Warm, dry, no pallor noted. There is no rash noted. Head: Normocephalic, atraumatic Eye: Normal conjunctiva, no drainage, EOMI. PERRL Ears, Nose, Mouth, and Throat: oral mucosa is moist. Cardiovascular: Regular Rate and Rhythm S1S2, no murmurs, rubs or gallops Respiratory: Patient is in no distress, no accessory muscle use, lungs are clear to auscultation, no wheezing, rales or rhonchi Back: non-tender, no CVA tenderness bilaterally to percussion. GI: , Soft, there is a suprapubic catheter in the lower abdominal wall. There is sediment and black urine in the catheter bag but no drainage, there is tenderness over the urinary bladder and fullness. : mild scrotal erythema without signs of skin breakdown or necrotizing fasciitis Musculoskeletal: Chronic lower extremity skin changes and violaceous feet which are warm and sensate and became less discolored after the patient was placed in a bed Neurological: A&O x4, normal speech Psychiatric: Cooperative, irritable and swearing upon arrival Constitutional Vital Signs, click to edit/add: Last Vital Signs Temp 98.0 F 10/28/23 21:18 Pulse 58 L 10/28/23 22:06 Resp 18 10/28/23 22:06 BP 159/89 H 10/28/23 22:06 Pulse Ox 96 10/28/23 22:06 O2 Del Method Room Air 10/28/23 21:18 Course Vital Signs Vital signs: Vital Signs Temperature 98.0 F 10/28/23 21:18 Pulse Rate 68 10/28/23 21:18 Respiratory Rate 22 10/28/23 21:18 Blood Pressure 218/114 H 10/28/23 21:18 Pulse Oximetry 98 10/28/23 21:18 Oxygen Delivery Method Room Air 10/28/23 21:18 Temperature 98.0 F 10/28/23 21:18 Pulse Rate 58 L 10/28/23 22:06 Respiratory Rate 18 10/28/23 22:06 Blood Pressure 159/89 H 10/28/23 22:06 Pulse Oximetry 96 10/28/23 22:06 Oxygen Delivery Method Room Air 10/28/23 21:18 MDM - Male Genitourinary MDM Narrative Medical decision making narrative: 63-year-old male who has a suprapubic catheter and recently had a large bladder stone removed presents for evaluation of lower abdominal pain and blockage of the suprapubic catheter. He states it has not been draining since it was placed approximately one week ago. Arrival he was yelling in pain and very irritable. He was medicated with IV fluids, morphine and Zofran. It was apparent that the suprapubic catheter was not draining and a straight catheter was performed to decompress the bladder. Patient tolerated this well and routine labs are ordered and his urine was sent for evaluation. He has a normal white count and hemoglobin. Electrolytes are normal. His glucose is 91. At the patient's request a suprapubic catheter was replaced by myself using sterile technique. It was then draining and the patient's pain was improved and he feels much more comfortable. I was unable to acquire a 24 Vincentian catheter to use and a 22 Vincentian catheter was used to replace the suprapubic catheter. The patient states that he will follow-up tomorrow with Dr. Ibarra and have a 24 Vincentian catheter replaced it is deemed necessary. He is currently on antibiotics which will continue. After placement of the suprapubic catheter, he was given a 500cc IV bolus of normal saline and the urine output was monitored. Lab Data Labs: Lab Results 10/28/23 10/28/23 Range/Units 20:55 22:04 WBC 4.3 (4.0-11.0) 10^3/uL RBC 4.45 L (4.70-6.10) 10^6/uL Hgb 12.2 L (14.0-18.0) g/dL Hct 40.6 L (42.0-54.0) % MCV 91.2 (80.0-94.0) fL MCH 27.4 (25.9-34.0) pg MCHC 30.0 (29.9-35.2) g/dL RDW 15.5 H (11.0-15.0) % Plt Count 155 (150-450) 10^3/uL MPV 13.1 (9.5-13.5) fL Neut % (Auto) 60.0 (43.0-75.0) % Lymph % (Auto) 27.7 (20.5-60.0) % [place] % (Auto) 7.9 (1.7-12.0) % Eos % (Auto) 4.2 (0.9-7.0) % Baso % (Auto) 0.2 (0.2-2.0) % Neut # (Auto) 2.6 (1.4-6.5) 10^3/uL Lymph # (Auto) 1.2 (1.2-3.8) 10^3/uL [place] # (Auto) 0.3 (0.3-0.8) 10^3/uL Eos # (Auto) 0.2 (0.0-0.7) 10^3/uL Baso # (Auto) 0.0 (0.0-0.1) 10^3/uL Abs Immat Gran (auto) 0.00 (0.00-0.03) 10^3/uL Imm/Tot Granulo (auto) 0.0 (0.0-0.5) % Sodium 136 (136-145) mmol/L Potassium 3.5 (3.5-5.1) mmol/L Chloride 105 (98-107) mmol/L Carbon Dioxide 28.8 (21.0-32.0) mmol/L Anion Gap 5.7 BUN 20.0 H (7.0-18.0) mg/dL Creatinine 1.46 H (0.70-1.30) mg/dL Est GFR ( Amer) 59 L (>=60) Est GFR (Non-Af Amer) 48 L (>=60) BUN/Creatinine Ratio 13.7 Glucose 91 (74-106) mg/dL Lactate 0.9 (0.4-2.0) mmol/L Calcium 8.9 (8.5-10.1) mg/dL Total Bilirubin 0.4 (0.2-1.0) mg/dL AST 7 L (15-37) U/L ALT 13 L (16-63) U/L Alkaline Phosphatase 115 (46-116) U/L Total Protein 7.0 (6.4-8.2) g/dL Albumin 3.4 (3.4-5.0) g/dL Globulin 3.6 g/dL Albumin/Globulin Ratio 0.9 Urine Color Lt. yellow (YELLOW) Urine Clarity Clear (CLEAR) Urine pH 7.5 (5.0-9.0) Ur Specific [place] 1.015 (1.005-1.025) Urine Protein 30 A (NEG/TRACE) mg/dL Urine Glucose (UA) Negative (NEGATIVE) mg/dL Urine Ketones Trace A (NEGATIVE) mg/dL Urine Occult Blood Large A (NEGATIVE) Urine Nitrite Positive A (NEGATIVE) Urine Bilirubin Negative (NEGATIVE) Urine Urobilinogen 0.2 (0.2-1.0) EU/dL Ur Leukocyte Esterase Small A (NEGATIVE) Urine RBC 5-10 A (0-2) #/HPF Urine WBC 2-5 A (NONE SEEN) #/HPF Ur Squamous Epith Cells None seen (NONE/RARE) #/LPF Urine Crystals None seen (None Seen) #/HPF Urine Bacteria Small A (NONE SEEN) #/HPF Urine Casts None seen (NONE SEEN) #/LPF Urine Mucus None seen (NONE SEEN) Discharge Plan Discharge Chief Complaint: Urogenital-Male Clinical Impression: Complication, blocked Carrington catheter Patient Disposition: Home, Self-Care Time of Disposition Decision: 00:56 Condition: Good Prescriptions / Home Meds: No Action carbidopa-levodopa 25-100 mg tablet 2 tab PO BID Patient Comments: 2 TABS AT6AM AND 10 AM; 1 TAB AT 2PM AND 6 PM benzonatate 100 mg capsule 100 mg PO DAILY atorvastatin 10 mg tablet 10 mg PO DAILY acarbose 25 mg tablet 25 mg PO TID diclofenac sodium 75 mg tablet,delayed release (DR/EC) 75 mg PO BID montelukast 10 mg tablet 10 mg PO .QHS fludrocortisone 0.1 mg tablet 0.2 mg PO .QD pregabalin 300 mg capsule 300 mg PO BID tolterodine 4 mg capsule,extended release 24hr 4 mg PO DAILY midodrine 5 mg tablet 15 mg PO DAILY topiramate 100 mg tablet 100 mg PO BID docusate sodium 100 mg capsule 100 mg PO DAILY duloxetine 60 mg capsule,delayed release(DR/EC) 60 mg PO DAILY Patient Comments: TAKES WITH VENLAFAXINE BREE/DR Charlee ARIAS ezetimibe 10 mg tablet 10 mg PO DAILY ondansetron HCl 4 mg tablet 4 mg PO DAILY PRN (Reason: nausea and vomiting) oxycodone 5 mg tablet 5 mg PO DAILY PRN (Reason: pain) potassium citrate 15 mEq tablet extended release 15 meq PO TID carbidopa-levodopa 25-100 mg tablet extended release 1 tab PO QID venlafaxine [Effexor XR] 75 mg capsule,extended release 24hr 75 mg PO DAILY Patient Comments: TAKES WITH DULOXETINE PER SONA ARIAS gentamicin in NaCl (iso-osm) 100 mg/100 mL piggyback 500 mg IV Q24H 3 Days Instructions: Carrington Catheter Placement and Care (ED) Stand Alone Forms: Portal Instructions Referrals: ELLEN ARIAS [Primary Care Provider] - 1 week Ubaldo Ibarra MD [Physician] - As soon as possible (Suprapubic carrington catheter removed and replaced with 22Fr catheter due to blockage and urinary retention) Discharge Date/Time: 10/29/23 01:37 Procedures ED Procedure Instructions Procedures Procedures: This patient presents with a Carrington catheter that is not draining and requests a regular Carrington catheter to be placed into his urethra. I placed a 16 Vincentian straight catheter into the urethra to decompress the bladder. After the bladder was decompressed the suprapubic catheter was irrigated and appears to be draining however the patient requests that the suprapubic catheter be replaced. We did not have a 24 Vincentian Carrington catheter but the patient was agreeable to a 22 Vincentian catheter to be placed tonight and he will follow-up tomorrow to have the 24 Vincentian Carrington catheter inserted at his urologists office. Sterile technique was used and the patient's suprapubic catheter was removed. The skin was cleaned with Betadine and the ostia and the lower abdominal wall was cleansed with Betadine. A Urojet was used to anesthetize and lubricate. A 22 Vincentian catheter was placed into the suprapubic tract in the lower abdominal wall. The bulb was inflated with 5 mL of urine as per the instructions. It was draining light pink urine with sediment after placement. Patient tolerated procedure well. A clean Carrington bag was applied.
--- NOTE | 2023-10-28 21:31 | PC.NURSE ---
Patient has suprapubic catheter in place; no urine in tubing, very small amount of dark red urine in carrington catheter bag. Patient reports having lower abdominal pain and pressure.
[2023-10-28 22:06] VITALS: BP 159/89; PULSE 58; RESP 18; O2SAT 96
[2023-10-28] MEDS: ONDANSETRON PF 4 MG/2 ML VIAL IV (22:08)
[2023-10-28] MEDS: MORPHINE SULFATE 4 MG/ML VIAL IV (22:09)
[2023-10-28 22:15] LABS: Basophils Percent Auto 0.2 % (0.2-2.0); Eosinophils Absolute Auto 0.2 10^3/uL (0.0-0.7); Eosinophils Percent Auto 4.2 % (0.9-7.0); Hematocrit 40.6 % (42.0-54.0); Hemoglobin 12.2 g/dL (14.0-18.0); Lymphocytes Absolute Auto 1.2 10^3/uL (1.2-3.8); Lymphocytes Percent Auto 27.7 % (20.5-60.0); Mean Corpuscular Hemoglobin 27.4 pg (25.9-34.0); Mean Corpuscular Volume 91.2 fL (80.0-94.0); Mean Platelet Volume 13.1 fL (9.5-13.5); Monocytes Absolute Auto 0.3 10^3/uL (0.3-0.8); Monocytes Percent Auto 7.9 % (1.7-12.0); Neutrophils Absolute Auto 2.6 10^3/uL (1.4-6.5); Platelet Count 155 10^3/uL (150-450); Red Blood Count 4.45 10^6/uL (4.70-6.10); Red Cell Distribution Width 15.5 % (11.0-15.0); White Blood Count 4.3 10^3/uL (4.0-11.0)
[2023-10-28 22:17] LABS: Bilirubin Urine NEGATIVE (NEGATIVE); Blood Urine LARGE (NEGATIVE); Clarity Urine CLEAR (CLEAR); Color Urine LT. YELLOW (YELLOW); Glucose Urine UA NEGATIVE (NEGATIVE); Ketones Urine TRACE mg/dL (NEGATIVE); Leukocyte Esterase Urine SMALL (NEGATIVE); Nitrite Urine POSITIVE (NEGATIVE); Protein Urine 30 mg/dL (NEG/TRACE); Specific Gravity Urine 1.015 (1.005-1.025); Urobilinogen Urine 0.2 EU/dL (0.2-1.0); pH Urine 7.5 (5.0-9.0)
[2023-10-28 23:00] LABS: Bacteria Urine SMALL #/HPF (NONE SEEN); Crystals Seen? None Seen #/HPF (None Seen); Mucus Urine NONE SEEN (NONE SEEN); Squamous Epithelial Cell Urine NONE SEEN #/LPF (NONE/RARE)
[2023-10-28 23:01] LABS: Cast Seen? NONE SEEN #/LPF (NONE SEEN)
[2023-10-28 23:01] LABS: Alanine Aminotransferase 13 U/L (16-63); Albumin Globulin Ratio 0.9; Albumin Level 3.4 g/dL (3.4-5.0); Alkaline Phosphatase 115 U/L (46-116); Anion Gap 5.7; Aspartate Amino Transferase 7 U/L (15-37); BUN Creatinine Ratio 13.7; Bilirubin Total 0.4 mg/dL (0.2-1.0); Calcium 8.9 mg/dL (8.5-10.1); Carbon Dioxide 28.8 mmol/L (21.0-32.0); Chloride 105 mmol/L (98-107); Estimated GFR (African America 59 (>=60); Estimated GFR (Non-African Ame 48 (>=60); Globulin 3.6 g/dL; Glucose 91 mg/dL (74-106); Potassium 3.5 mmol/L (3.5-5.1); Sodium 136 mmol/L (136-145)
[2023-10-28 23:03] LABS: Lactate/Lactic Acid 0.9 mmol/L (0.4-2.0)
[2023-10-29] MEDS: LIDOCAINE 2% JELLY 10 ML UR (00:03)
[2023-10-29] MEDS: 0.9 % SODIUM CHLORIDE 1,000 ML 500 ML IV (00:27)
== END 2023-10-29 01:37 | disposition home or self-care (01) ==
PROVIDERS: Emergency Provider Emergency Medicine; PCP Family Medicine
DX: T83.090A Other mechanical complication of cystostomy catheter, initial encounter (principal); G20.A1 Parkinson's disease without dyskinesia, without mention of fluctuations; Z87.440 Personal history of urinary (tract) infections; Z79.899 Other long term (current) drug therapy; E11.42 Type 2 diabetes mellitus with diabetic polyneuropathy; N31.9 Neuromuscular dysfunction of bladder, unspecified; Z85.01 Personal history of malignant neoplasm of esophagus; Z85.819 Personal history of malignant neoplasm of unspecified site of lip, oral cavity, and pharynx; K21.9 Gastro-esophageal reflux disease without esophagitis; J44.9 Chronic obstructive pulmonary disease, unspecified; Z86.16 Personal history of COVID-19; Z87.01 Personal history of pneumonia (recurrent); Z96.89 Presence of other specified functional implants; Z98.890 Other specified postprocedural states; Z96.652 Presence of left artificial knee joint; Z96.612 Presence of left artificial shoulder joint; Z98.84 Bariatric surgery status; Z87.891 Personal history of nicotine dependence
CPT/HCPCS: 36415; 80053; 81001; 83605; 85025; 87040; 96374; 96375; 99284; J2270; J2405

== ENCOUNTER 2023-11-08 13:34 | Emergency (ER) | payer MEDICARE, OTHER, SELFPAY ==
--- OUTSIDE RECORDS SUMMARY | 2023-11-08 13:44 | XMS_ITS | CCD ---
Author Name Unknown Address [address] [place] [address] Organization [facility] Care Team Providers Care Line Construction Supervisor Name Role Phone RICCHETTI, SERGEY T Unavailable Unavailable RICCHETTI, SERGEY T Unavailable Unavailable RICCHETTI, SERGEY T Unavailable Unavailable RICCHETTI, SERGEY T Unavailable Unavailable ITALO BLAIRJIT Unavailable Unavailable NADEEN, SWATI M Unavailable Unavailable NADEEN SWATI M Unavailable Unavailable LUISITO RIVERA Unavailable Unavailable UNKNOWN, PROVIDER Unavailable Unavailable UNKNOWN, PROVIDER Unavailable Unavailable SELF, REFERRED Unavailable Unavailable ELLEN CRABTREE Unavailable Unavailable Ellen Crabtree Unavailable Unavailable Unavailable Lashon Hamm Primary Care Physician Lashon Justin Unavailable Unavailable Lashon Hamm Primary Care Physician Ellen Kiran Primary Care Provider [phone] Ellen Crabtree DO Primary Care Provider Unavailab [...] Unavailable LEYDA, DR HUGHES Primary Care Unavailable AWENDAW, DR LIZETH Momin Consulting Unavailable NADERER, DR KARLEY Crowe Consulting Unavailable CHRISTIAN, EN Consulting Unavailable DIAB ., MERCEDEZ Consulting Unavailable Steven Gonzales Admitting Unavailable Steven Gonzales Attending Unavailable Ellen Crabtree Primary Care Unavailable Kathleen Trujillo Consulting Unavailable Aleshia Hooks Consulting Unavailable Rose [...] Arevalo Consulting Unavailable Seffo, Emelina Consulting Unavailable Jaqulein, Enrico Consulting Unavailable [place]ulu[place], Elli Gomez Consulting Unavailable Doamedusty, Quintin Crum [...] 17 Rash, Hives, GI Upset, Weal (disorder) [facility] Repository (20 sources) clonazePAM; Translations: [CLONAZEPAM] Drug Allergy 06-04-20 17 Itching, Shortness Of Breath, Dyspnea (finding) [facility] Repository (20 sources) levoFLOXacin; Translations: [LEVOFLOXACIN] Drug Allergy 01-30-20 10 Hives, Shortness Of Breath, Dyspnea (finding) [facility] Repository (9 sources) moxifloxacin; Translations: [MOXIFLOXACIN HCL] Drug Allergy 07-20-20 06 Rash, Hives, Itching, Shortness of Breath [facility] Repository (11 sources) ERYTHROMYCIN BASE; Translations: [ERYTHROMYCIN BASE] Propensity to adverse reactions to drug (disorder) 03-06-20 04 Hives, Shortness of Breath [facility] Repository (3 sources) celecoxib; Translations: [CeleBREX] Drug Allergy 06-25-20 12 [facility] Repository (1 source) erythromycin Drug Allergy 06-25-20 12 [facility] Repository (20 sources) levoFLOXacin Drug Allergy 06-25-20 12 Unknown [facility] Repository (3 sources) moxifloxacin; Translations: [Avelox] Drug Allergy 06-25-20 12 [facility] Repository (5 sources) celecoxib; Translations: [CeleBREX CAPS] [facility] Work Phone: (5 sources) clonazePAM; Translations: [KlonoPIN TABS] Drug Allergy [facility] 250 DO Work Phone: (5 sources) levoFLOXacin; Translations: [Levaquin] Drug Allergy [facility] 250 DO Work Phone: (20 sources) moxifloxacin; Translations: [Avelox] Drug Allergy 07-19-20 06 Hives, Shortness Of Breath, Dyspnea (finding), Eruption of skin (disorder), Itching (finding), Urticaria (disorder), Weal (disorder) [facility] (5 sources) Erythromycin Derivatives; Translations: [Erythromycin Derivatives] Allergy to drug (finding) [facility] Work Phone: (2 sources) celecoxib; Translations: [Celebrex] Drug Allergy [facility] (3 sources) clonazePAM; Translations: [Klonopin] Drug Allergy [facility] Repository (20 sources) Erythromycin; Translations: [erythromycin] Drug Allergy 01-24-20 22 Itching, Nausea And Vomiting, Nausea (finding) [employer] Other (2 sources) levoFLOXacin; Translations: [Levaquin] Drug Allergy [facility] (2 sources) moxifloxacin; Translations: [Avelox] Drug Allergy [facility] (4 sources) pimavanserin; Translations: [PIMAVANSERIN] Drug Allergy 08-23-20 [place] (2 sources) moxifloxacin; Translations: [moxifloxacin] Drug Allergy 07-19-20 06 [facility] Repository Medications Current Medications Medication Drug Class(es) [...] Daily, # 30 tab(s), Refills(s) 0, Pharmacy: [facility] 1155, 175, cm, 01/16/23 10:13:00 [...] on above: Take 1 capsule by mo [facility] three times daily as needed for [...] mg per tablet Indications: PD (Parkinson's disease) (FORMERLY [facility]) Take 1.5 tablets by mouth four times [...] times daily. Take 2 tablets by mo [facility] at 6 am, 2 tablets at 10 am, and 1 tablet at 2 pm, 6 pm, 10 pm and 2 am. cefdinir 300 mg oral capsule (10 sources) Cephalosporin Antibacterial Start: 06-11-2023 End: 06-21-2023 take 1 capsule by mouth every twelve hours cefdinir 300 mg Cap 300 mg = 1 cap(s), Oral, q12hr, X 10 day(s), # 20 cap(s), Refills(s) 0, Pharmacy: [facility] 1155, 175, cm, 03/20/23 9:07:00 EDT, Height/Length Dosing, 92, kg, 03/20/23 9:07:00 EDT, Weight Dosing Start Date: 06/11/23 Stop Date: 06/21/23 Status: Ordered take 1 capsule by mo [facility] every twelve hours Cefdinir 300 MG [...] day(s), # 20 cap(s), Refills(s) 0, Pharmacy: [facility] 1155, 175, cm, 03/20/23 9:07:00 [...] Comment on above: Take [address] [facility] once daily. ezetimibe 10 mg oral tablet [...] Status: Ordered take 2 tablets by mo [facility] every twenty-four hours Fludrocortisone Acetate 0.1 MG 2 tablet Orally Once a day Active Comment on above: Take 1 tablet by [facility] once daily. fluticasone propionate 0.05 mg/actuat [...] Start: 12-06-2022 take 3 tablets by mo [facility] once daily midodrine (PROAMITINE) 5 mg [...] mg Active take 3 tablets by mo [facility] every twelve hours Midodrine HCl 5 MG 3 tablet Orally BID 15 mg Active midodrine 2.5 mg tablet unsure of dose Comment on above: Take 5 mg by mouth t wice daily. Take 3 tablets by mo [facility] once daily. Take at 7:00am Take [...] BID, # 5 cap(s), Refills(s) 0, Pharmacy: [facility] 1155, 175, cm, 03/20/23 9:07:00 EDT, Height/Length Dosing, 92, kg, 03/20/23 9:07:00 EDT, Weight Dosing Start Date: 07/22/23 Status: Ordered Start: 06-11-2023 End: 06-21-2023 take 1 capsule by mouth twice daily Macrobid 100 mg Cap 100 mg = 1 cap(s), Oral, BID, X 10 day(s), # 20 cap(s), Refills(s) 0, Pharmacy: [facility] 1155, 175, cm, 03/20/23 9:07:00 [...] Active Start: 03-05-2016 take 1 tablet by [facility] three times daily at mealtime Potassium Citrate 15 MEQ (1620 MG) 1 tablet with meals Orally Three times a day February, Active Start: 03-05-2016 take 1 tablet by [facility] three times daily at mealtime Potassium Citrate 15 MEQ (1620 MG) 1 tablet with meals Orally Three times a day February, Not-Taking Start: 06-23-2007 End: 11-20-2022 take 1 tablet by mouth three times daily potassium citrate (UROCIT-K 10) 10 mEq ORAL TbSR Take one(1) tablet three times daily. 0 06/23/2007 11/20/2022 Discontinued take 1 tablet by [facility] three times daily Potassium Citrate ER [...] Start: 11-19-2021 take 1 capsule by mo [facility] once daily topiramate oral capsule,sprinkle,ER 24hr [...] Comment on above: Take 1 tablet by [facility] twice daily. traMADol hydrochloride 50 mg oral tablet (12 sources) Opioid Agonist Start: 09-02-2023 take 1 tablet by mouth every twelve hours traMADol HCl 50 MG 1 tablet as needed Orally twice a day for 30 days Aug, Active Start: 05-19-2023 take 1 tablet by [facility] every twelve hours traMADol HCl 50 MG 1 tablet as needed Orally twice a day for 30 days May, Active Start: 02-08-2022 traMADol (ULTR AM) tablet 50 mg 24 hr venlafaxine 37.5 mg extended release oral capsule (20 sources) Serotonin and Norepinephrine Reuptake Inhibitor Start: 01-16-2023 venlafaxine 37.5 mg Cap-ER Refills(s) 0 Start Date: 01/16/23 Status: Ordered take [address] [facility] every twenty-four hours Venlafaxine HCl ER 75 [...] ORAL/FE EDING TUBE route three times daily. [id number] 200 actuat albuterol 0.09 mg/actuat metered dose [...] Start: 02-07-2022 take 10 mg rectal ro pokagon once daily as needed 10 mg, Rectal, [...] a day Not-Taking take 2 puff(s) by [facility] twice daily Symbicort 160-4.5 MCG/ACT Inhalation Aerosol [...] 05/04/2020 12/06/2022 Discontinued take [address] [facility] every twenty-four hours Docusate Sodium 100 MG 1 capsule Orally Once a day for 90 days Active Comment on above: Take [address] [facility] twice daily. docusate sodium 50 mg / sennosides, fpc 8.6 mg oral tablet (1 source) Start: [...] Not-Taking Start: 08-15-2013 take 1 capsule by [facility] once daily Multivitamins DX: 285.9 1 capsule [...] Comment on above: Take [address] [facility] daily at bedtime. polyethylene glycol 3350 68454 mg powder for oral solution (13 sources) [...] tablet by brendan th every evening. sennosides, fpc 8.6 mg oral tablet (2 sources) Start: [...] 12-06-2022 Episodic Other aftercare (1 source) Other care home (current) drug therapy; Translations: [OTH SECURITIES DEALER CURRENT DRUG THERAPY] Onset: 02-13-2023 Episodic Other [...] 11-08-2019 11-08-2019 Episodic Other aftercare (1 source) penitentiary (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; Translations: [SECURITIES DEALER USE ORAL HYPOGLYCEMIC DX] Onset: 12-22-2022 Episodic [...] Locations R1: This test was performed at: [facility], [address] [place] [address], [facility] , , Normal [facility] Comment on above: Performed By: #### 2 [id number] ####[facility] [address] [place] [address] Ambulatory Visit Summaryon 0 10-22-2023 Ambulatory Visit [...] 11:00 AM EST Where: [facility] Ambulatory Visit Summaryon 1 11-15-2022 Ambulatory Visit [...] 11:00 AM EST Where: [facility] Lab Reportson 08-28-2023 Lab Reports [id number]#1.00TIFF [facility] Formson 08-27-2023 Forms [id number]#1.00TIFF [facility] RAD - CT Reporton 08-25-2023 RAD - CT Report [id number]#1.00TIFF [facility] RAD - MISCon 08-18-2023 RAD - MISC [id number]#1.00TIFF Normal [facility] Physician Orderon 08-03-2023 Physician Order [id number]#1.00TIFF Normal [facility] Physician Orderon 07-27-2023 Physician Order [id number]#1.00TIFF Normal [facility] C Urineon 07-21-2023 Bacteria identified Cx Nom [...] Locations R1: This test was performed at: [facility], [address] [place] [address], [address]- , , [facility] Comment on above: Performed By: #### 2 [id number] #### [facility] [address] [place] [address] Provider Letteron 07-13-2023 Provider Letter (Inserted Image. Nette ble to display) July 13, 2023 ALISIA CORREA [address] [place] [address] : 1960 Dear Mr. Correa, We have been trying to reach you with no success. It is important that you return our call regarding your recent injections upon receiving this letter. Also, at the time of your call, please provide us with your current information. Please call our office at [phone]. Thank you for your prompt attention to this matter. Sincerely, [facility] [address] [place] [address] [place] [address] Normal [facility] Lab Reportson 07-08-2023 Lab Reports [id number]#1.00CD:127 Normal [facility] Gent Levelon 07-02-2023 GENTAMICIN 8.8 microgram/mL Normal 0.5-10.0 [facility] Comment on above: Performed By: #### 2 [id number] ####[facility] [address] [place] [address] Physician Orderon 07-02-2023 Physician Order [id number]#1.00CD:127 Normal [facility] Physician Order [id number]#1.00CD:127 Normal [facility] Lab Reportson 07-01-2023 Lab Reports [id number]#1.00CD:127 Normal [facility] Physician Orderon 06-29-2023 Physician Order [id number]#1.00CD:127 Normal [facility] C Urineon 06-21-2023 Bacteria identified Cx Nom [...] Locations R1: This test was performed at: [facility], [address] [place] [address], [facility]- , , [facility] Comment on above: Performed By: #### 2 [id number] #### [facility] [address] [place] [address] Ambulatory Visit Summaryon 0 06-19-2023 Ambulatory Visit [...] 11:00 AM EDT Where: [facility] Lab Reportson 06-08-2023 Lab Reports [id number]#1.00CD:127 [facility] Lab Reports [id number]#1.00CD:127 [facility] Lab Reports [id number]#1.00CD:127 [facility] Formson 05-29-2023 Forms [id number]#1.00CD:127 Normal [facility] C Urineon 05-28-2023 Bacteria identified Cx Nom [...] Locations R1: This test was performed at: [facility], [address] [place] [address], [address]- , , Normal [facility] Comment on above: Performed By: #### 2 [id number] #### [facility] [address] [place] [address] ECG 12-Leadon 05-13-2023 ECG 12-Lead [id number]#1.00CD:127 Normal [facility] RAD - Ultrasound Reporton RAD - Ultrasound Report [id number]#1.00CD:127 Normal [facility] RAD - Ultrasound Report [id number]#1.00CD:127 Normal [facility] Basic Metabolic Panelon 03-19 Anion gap [Moles/Vol] 10.0 mmol/L Normal 6.0-15.0 [facility] Comment on above: Performed By: #### C BC, BMP #### [facility] [address] [place] [address] [facility] Calcium [Mass/Vol] 8.6 mg/dL Normal 8.6-10.3 [facility] Comment on above: Performed By: #### C BC, BMP #### [facility] [address] Chloride [Moles/Vol] 107 mmol/L Normal 98-107 [facility] Comment on above: Performed By: #### C BC, BMP #### [facility] [address] CO2 [Moles/Vol] 26.7 mmol/L Normal 21.0-31.0 [facility] Comment on above: Performed By: #### C BC, BMP #### [address] Creatinine [Mass/Vol] 0.74 mg/dL Normal 0.70-1.30 [facility] Comment on above: Performed By: #### C BC, BMP #### [address] Creatinine Clr Calc Pharmacy 114.00 Normal [facility] Comment on above: Result Comment: PERF ORMED BY: [place] [address] PATHOLOGIST [employer] MANAGER SIVAKUMAR PALACIOS M.D. Performed By: #### C BC, BMP #### [address] GFR/1.73 sq M.predicted MDRD (S/P/Bld) [Vol rate/Area] mL/min/{1.73_m2} Normal [facility] Comment on above: Performed By: #### C BC, BMP #### [address] Glucose [Mass/Vol] 76 mg/dL Normal 70-100 [facility] Comment on above: Result Comment: [place] Glucose Reference Range is dependent on time and content of last meal. Glucose of more than 200 mg/dL in a nonstressed, ambulatory subject supports the diagnosis of Diabetes Mellitus. ADA recommended reference range Performed By: #### C BC, BMP #### [address] Potassium [Moles/Vol] 3.7 mmol/L Normal 3.5-5.1 [facility] Comment on above: Performed By: #### C BC, BMP #### [address] Sodium [Moles/Vol] 140 mmol/L Normal 136-145 [facility] Comment on above: Performed By: #### C BC, BMP #### [address] Urea nitrogen [Mass/Vol] 17 mg/dL Normal 7-25 [facility] Comment on above: Performed By: #### C BC, BMP #### [address] Complete Blood Count Auto Di ffon 04-01-2023 Basophils (Bld) [#/Vol] 0.0 10*3/uL Normal 0.0-0.2 [facility] Comment on above: Result Comment: PERF ORMED BY: [place] [address] PATHOLOGIST [employer] MANA[employer] SIVAKUMAR PALACIOS M.D. Performed By: #### C BC, BMP #### [address] Basophils/100 WBC (Bld) 0.6 % Normal . [facility] Comment on above: Performed By: #### C MAREN, BMP #### [address] Eosinophils (Bld) [#/Vol] 0.2 10*3/uL Normal 0.0-0.45 [facility] Comment on above: Performed By: #### C BC, BMP #### [address] Eosinophils/100 WBC (Bld) 4.5 % Normal . [facility] Comment on above: Performed By: #### C BC, BMP #### [address] Erythrocyte distribution width (RBC) [Ratio] 14.3 % Normal 12.0-14.8 [facility] Comment on above: Performed By: #### C BC, BMP #### [address] [address] [place] Hematocrit (Bld) [Volume fraction] 36.5 % Low 38.8-50.0 [facility] Comment on above: Performed By: #### C BC, BMP #### [address] Hemoglobin (Bld) [Mass/Vol] 11.9 g/dL Low 13.0-17.0 [facility] Comment on above: Performed By: #### C BC, BMP #### [address] Lymphocytes (Bld) [#/Vol] 2.3 10*3/uL Normal 1.00-4.8 [facility] Comment on above: Performed By: #### C BC, BMP #### [address] Lymphocytes/100 WBC (Bld) 51.2 % Normal . [facility] Comment on above: Performed By: #### C BC, BMP #### [address] MCH (RBC) [Entitic mass] 28.2 pg Normal 27.5-35.2 [facility] Comment on above: Performed By: #### C BC, BMP #### [address] MCV (RBC) [Entitic vol] 86.8 fL Normal 83.5-101 [facility] Comment on above: Performed By: #### C BC, BMP #### [address] Mean Corpuscular HGB Conc 32.5 g/dL Normal 32.5-35.6 [facility] Comment on above: Performed By: #### C BC, BMP #### [address] Monocytes (Bld) [#/Vol] 0.3 10*3/uL Normal 0.0-0.8 [facility] Comment on above: Performed By: #### C BC, BMP #### [address] [place] [address] [place] Monocytes/100 WBC (Bld) 7.4 % Normal . [facility] Comment on above: Performed By: #### C BC, BMP #### [facility] [address] Neutrophils (Bld) [#/Vol] 1.6 10*3/uL Low 1.8-7.7 [facility] Comment on above: Performed By: #### C BC, BMP #### [address] Neutrophils/100 WBC (Bld) 36.3 % Normal . [facility] Comment on above: Performed By: #### C MAREN, BMP #### [address] NRBC% 0.3 /100{WBC} Normal 0-0.5 [facility] Comment on above: Performed By: #### C MAREN, BMP #### [address] Platelet mean volume (Bld) [Entitic vol] 10.7 fL High 6.6-10.1 [facility] Comment on above: Performed By: #### C MAREN, BMP #### [address] Platelets (Bld) [#/Vol] 165 10*3/uL Normal 150-450 [facility] Comment on above: Performed By: #### C BC, BMP #### [address] RBC (Bld) [#/Vol] 4.21 10*6/uL Normal 3.90-5.60 [facility] Comment on above: Performed By: #### C BC, BMP #### [address] WBC (Bld) [#/Vol] 4.5 10*3/uL Normal 4.1-10.5 [facility] Comment on above: Performed By: #### C BC, BMP #### [address] [address] [place] Dipstick and Microscopicon 0 03-31-2023 Appearance (U) Cloudy Critically abnormal Clear [facility] Comment on above: Order Comment: Name Collection Type:: Carrington Catheter Performed By: #### A DDONUAPLUS, CUU #### [facility] [address] [place] [address] [place] Bacteria,Urine 1+ High None Seen [facility] Comment on above: Order Comment: Name Collection Type:: Carrington Catheter Performed By: #### A DDONUAPLUS, CUU #### [facility] [address] [place] [address] [place] Bilirubin,Urine Negative Normal Negative [facility] Comment on above: Order Comment: Name Collection Type:: Carrington Catheter Performed By: #### A DDONUAPLUS, CUU #### [facility] [address] [place] [address] Color (U) [place] Critically abnormal Yellow [facility] Comment on above: Order Comment: Name Collection Type:: Carrington Catheter Performed By: #### A DDONUAPLUS, CUU #### [facility] [address] [place] [address] [place] Glucose Ql (U) Normal Normal Normal [facility] Comment on above: Order Comment: Name Collection Type:: Carrington Catheter Performed By: #### A DDONUAPLUS, CUU #### [facility] [address] [place] [address] [place] Hyaline Casts,Urine 0-8 Normal 0-8 [facility] Comment on above: Order Comment: Name Collection Type:: Carrington Catheter Result Comment: PERF ORMED BY: [place] [address] PATHOLOGIST [employer] MANAGER SIVAKUMAR PALACIOS M.D. Performed By: #### A DDONUAPLUS, CUU #### [facility] [address] [place] [address] [place] Ketones Ql (U) Trace High Negative [facility] Comment on above: Order Comment: Name Collection Type:: Carrington Catheter Performed By: #### A DDONUAPLUS, CUU #### [facility] [address] [place] [address] Leukocyte esterase Test strip Ql (U) 3+ High Negative [facility] Comment on above: Order Comment: Name Collection Type:: Carrington Catheter Performed By: #### A DDONUAPLUS, CUU #### [place] [address] [place] Nitrite,Urine Positive High Negative [facility] Comment on above: Order Comment: Name Collection Type:: Carrington Catheter Performed By: #### A DDONUAPLUS, CUU #### [address] Occult Blood,Urine 3+ High Negative [facility] Comment on above: Order Comment: Name Collection Type:: Carrington Catheter Result Comment: PERF ORMED BY: [place] [address] PATHOLOGIST [employer] MANA[employer] SIVAKUMAR PALACIOS M.D. Performed By: #### A BLESSING, CUU #### [address] pH (U) 6.0 [pH] Normal 5.0-9.0 [facility] Comment on above: Order Comment: Name Collection Type:: Carrington Catheter Performed By: #### A DDONUAPLUS, CUU #### [address] Protein (U) [Mass/Vol] 300 mg/dL High Negative [facility] Comment on above: Order Comment: Name Collection Type:: Carrington Catheter Performed By: #### A DDONUAPLUS, CUU #### [place] [address] [place] RBC,Urine Innumerable High 0-4 [facility] Comment on above: Order Comment: Name Collection Type:: Carrington Catheter Performed By: #### A DDONUAPLUS, CUU #### [address] Specificy [place],Urine 1.017 Normal 1.001-1.03 0 [facility] Comment on above: Order Comment: Name Collection Type:: Carrington Catheter Performed By: #### A DDONUAPLUS, CUU #### [facility] [address] [place] [address] Squamous Epithelial Cell,Urine None Seen Normal 0-2 [facility] Comment on above: Order Comment: Name Collection Type:: Carrington Catheter Performed By: #### A DDONUAPLUS, CUU #### [facility] [address] [place] [address] Urobilinogen,Urine Normal Normal Normal [facility] Comment on above: Order Comment: Name Collection Type:: Carrington Catheter Performed By: #### A DDONUAPLUS, CUU #### [address] WBC,Urine Innumerable High 0-4 [facility] Comment on above: Order Comment: Name Collection Type:: Carrington Catheter Performed By: #### A DDONUAPLUS, CUU #### [address] Urine Cultureon 03-31-2023 Bacteria identified Cx Nom (U) ORGANISM: Klebsiella aerogenes (O:KLEAER) [place] Count 20,000 ORGANISM: Pseudomonas aeruginosa (O:PSEAER) [place] Count 50,000 Aerobic SABI Charge (NMIC56) SUSCEPTIBILITY [...] RESISTANT TO ALL B-LACTAM DRUGS. PERFORMED BY: [place] [address] PATHOLOGIST COFFEE SHOP MANAGER SIVAKUMAR PALACIOS M.D. [facility] Comment on above: Performed By: #### A TRENT FUNK #### [address] US venous duplex [facility]ly [facility] US venous duplex [facility] [place] [address] [place] [address] Ultrasound Report Signed Patient: Alisia Correa MR#: [id number] : 1960 Acct:[id number] Age/Sex: 62 / M ADM Date: 03/23/23 Loc: Room: [address] [place] [address] Type: ADM IN Attending Dr: Steven Gonzales [...] Gerardo Coulter M.D.03/28/2023 9:37 AM Dictation Location: [place] [address] Tech: Lyn Shaq Transcribed By: PENELOPE 03/28/23936 Dictated By: Gerardo Coulter MD 03/28/23936 Signed By: 03/28/23936 Normal [facility] Basic Metabolic Panelon 06- Anion gap [Moles/Vol] 10.2 mmol/L Normal 6.0-15.0 [facility] Comment on above: Performed By: #### B MP #### [address] Calcium [Mass/Vol] 8.3 mg/dL Low 8.6-10.3 [facility] Comment on above: Performed By: #### B MP #### [facility] [address] [place] [address] Chloride [Moles/Vol] 109 mmol/L High 98-107 [facility] Comment on above: Performed By: #### B MP #### [facility] [address] [id number] [place] CO2 [Moles/Vol] 24.4 mmol/L Normal 21.0-31.0 [facility] Comment on above: Performed By: #### B MP #### [address] Creatinine [Mass/Vol] 0.65 mg/dL Low 0.70-1.30 [facility] Comment on above: Performed By: #### B MP #### [facility] [address] [place] [address] [place] Creatinine Clr Calc Pharmacy 118.55 Normal [facility] Comment on above: Result Comment: PERF ORMED BY: [address] [place] [address] PATHOLOGIST COFFEE SHOP MANAGER SIVAKUMAR PALACIOS M.D. Performed By: #### B MP #### [place] [address] [place] GFR/1.73 sq M.predicted MDRD (S/P/Bld) [Vol rate/Area] mL/min/{1.73_m2} Normal [facility] Comment on above: Performed By: #### B MP #### [address] Glucose [Mass/Vol] 79 mg/dL Normal 70-100 [facility] Comment on above: Result Comment: [place] om Glucose Reference Range is dependent on time and content of last meal. Glucose of more than 200 mg/dL in a nonstressed, ambulatory subject supports the diagnosis of Diabetes Mellitus. ADA recommended reference range Performed By: #### B MP #### [place] [address] [place] Potassium [Moles/Vol] 3.6 mmol/L Normal 3.5-5.1 [facility] Comment on above: Performed By: #### B MP #### [place] [address] [place] Sodium [Moles/Vol] 140 mmol/L Normal 136-145 [facility] Comment on above: Performed By: #### B MP #### [place] [address] [place] Urea nitrogen [Mass/Vol] 15 mg/dL Normal 7-25 [facility] Comment on above: Performed By: #### B MP #### [place] [address] [place] Glucose Poct Glucometerson 0 03-25-2023 Glucose [Mass/Vol] 75 mg/dL Normal [facility] Comment on above: Result Comment: [place] om Glucose Reference Range is dependent on time and content of last meal. Glucose of more than 200 mg/dL in a nonstressed, ambulatory subject supports the diagnosis of Diabetes Mellitus. PERFORMED BY: [place] [address] PATHOLOGIST COFFEE SHOP MANAGER SIVAKUMAR PALACIOS M.D. Performed By: #### B MP #### [address] Comprehensive Metabolic Pane lisy 03-24-2023 Albumin [Mass/Vol] 3.1 g/dL Low 3.5-5.7 [facility] Comment on above: Performed By: #### B MP #### [address] Albumin/Globulin [Mass ratio] 1.1 {ratio} Normal [facility] Comment on above: Performed By: #### B MP #### [address] ALP [Catalytic activity/Vol] 109 U/L High 34-104 [facility] Comment on above: Performed By: #### B MP #### [address] ALT [Catalytic activity/Vol] U/L Low 7-52 [facility] Comment on above: Performed By: #### B MP #### [address] Anion gap [Moles/Vol] 9.2 mmol/L Normal 6.0-15.0 [facility] Comment on above: Performed By: #### B MP #### [address] AST [Catalytic activity/Vol] 5 U/L Low 13-39 [facility] Comment on above: Performed By: #### B MP #### [address] Bilirubin [Mass/Vol] 0.3 mg/dL Normal 0.3-1.0 [facility] Comment on above: Performed By: #### B MP #### [address] Calcium [Mass/Vol] 8.5 mg/dL Low 8.6-10.3 [facility] Comment on above: Performed By: #### B MP #### [facility] [address] [place] [address] [place] Chloride [Moles/Vol] 110 mmol/L High 98-107 [facility] Comment on above: Performed By: #### B MP #### [facility] [address] CO2 [Moles/Vol] 24.2 mmol/L Normal 21.0-31.0 [facility] Comment on above: Performed By: #### B MP #### [address] Creatinine [Mass/Vol] 0.53 mg/dL Low 0.70-1.30 [facility] Comment on above: Performed By: #### B MP #### [place] [address] [place] Creatinine Clr Calc Pharmacy 145.39 [facility] Comment on above: Performed By: #### B MP #### [place] [address] [place] GFR/1.73 sq M.predicted MDRD (S/P/Bld) [Vol rate/Area] mL/min/{1.73_m2} [facility] Comment on above: Performed By: #### B MP #### [place] [address] [place] Globulin (S) [Mass/Vol] 2.9 g/dL [facility] Comment on above: Performed By: #### B MP #### [place] [address] [place] Glucose [Mass/Vol] 83 mg/dL Normal 70-100 [facility] Comment on above: Result Comment: [place] Glucose Reference Range is dependent on time and content of last meal. Glucose of more than 200 mg/dL in a nonstressed, ambulatory subject supports the diagnosis of Diabetes Mellitus. ADA recommended reference range Performed By: #### B MP #### [address] Potassium [Moles/Vol] 3.4 mmol/L Low 3.5-5.1 [facility] Comment on above: Performed By: #### B MP #### [address] Protein [Mass/Vol] 6.0 g/dL Low 6.4-8.9 [facility] Comment on above: Performed By: #### B MP #### [address] Sodium [Moles/Vol] 140 mmol/L Normal 136-145 [facility] Comment on above: Performed By: #### B MP #### [address] Urea nitrogen [Mass/Vol] 18 mg/dL Normal 7-25 [facility] Comment on above: Performed By: #### B MP #### [address] Glucose Poct Glucometerson 0 03-24-2023 Glucose [Mass/Vol] 86 mg/dL Normal [facility] Comment on above: Result Comment: [facility] Glucose Reference Range is dependent on time and content of last meal. Glucose of more than 200 mg/dL in a nonstressed, ambulatory subject supports the diagnosis of Diabetes Mellitus. PERFORMED BY: [place] [address] PATHOLOGIST COFFEE SHOP MANAGER SIVAKUMAR PALACIOS M.D. Performed By: #### G LULS #### Point of Care testing , Prealbuminon 03-24-2023 Prealbumin [Mass/Vol] 12.8 mg/dL Low 17.0-34.0 [facility] Comment on above: Result Comment: PERF ORMED BY: [place] [address] PATHOLOGIST [employer]FFEE SHOP MANAGER SIVAKUMAR PALACIOS M.D. Performed By: #### B MP #### [address] Scan and CBCon 03-24-2023 Basophils (Bld) [#/Vol] 0.0 10*3/uL Normal 0.0-0.2 [facility] Comment on above: Performed By: #### B MP #### [address] Basophils/100 WBC (Bld) 0.6 % Normal . [facility] Comment on above: Performed By: #### B MP #### [address] Eosinophils (Bld) [#/Vol] 0.4 10*3/uL Normal 0.0-0.45 [facility] Comment on above: Performed By: #### B MP #### [address] Eosinophils/100 WBC (Bld) 9.1 % Normal . [facility] Comment on above: Performed By: #### B MP #### [address] Erythrocyte distribution width (RBC) [Ratio] 14.1 % Normal 12.0-14.8 [facility] Comment on above: Performed By: #### B MP #### [address] Hematocrit (Bld) [Volume fraction] 35.3 % Low 38.8-50.0 [facility] Comment on above: Performed By: #### B MP #### [address] Hemoglobin (Bld) [Mass/Vol] 11.6 g/dL Low 13.0-17.0 [facility] Comment on above: Performed By: #### B MP #### [address] Large Platelets Slight Normal [facility] Comment on above: Result Comment: PERF ORMED BY: [place] [address] PATHOLOGIST COFFEE SHOP MANAGER SIVAKUMAR PALACIOS M.D. Performed By: #### B MP #### [place] [address] [place] Lymphocytes (Bld) [#/Vol] 1.8 10*3/uL Normal 1.00-4.8 [facility] Comment on above: Performed By: #### B MP #### [address] Lymphocytes/100 WBC (Bld) 38.3 % Normal . [facility] Comment on above: Performed By: #### B MP #### [address] MCH (RBC) [Entitic mass] 28.6 pg Normal 27.5-35.2 [facility] Comment on above: Performed By: #### B MP #### [address] MCV (RBC) [Entitic vol] 87.0 fL Normal 83.5-101 [facility] Comment on above: Performed By: #### B MP #### [address] Mean Corpuscular HGB Conc 32.8 g/dL Normal 32.5-35.6 [facility] Comment on above: Performed By: #### B MP #### [address] Monocytes (Bld) [#/Vol] 0.4 10*3/uL Normal 0.0-0.8 [facility] Comment on above: Performed By: #### B MP #### [address] Monocytes/100 WBC (Bld) 8.7 % Normal . [facility] Comment on above: Performed By: #### B MP #### [address] Neutrophils (Bld) [#/Vol] 2.0 10*3/uL Normal 1.8-7.7 [facility] Comment on above: Performed By: #### B MP #### [address] Neutrophils/100 WBC (Bld) 43.3 % Normal . [facility] Comment on above: Performed By: #### B MP #### [address] NRBC% 0.2 /100{WBC} Normal 0-0.5 [facility] Comment on above: Performed By: #### B MP #### [address] Platelet Estimate Normal Normal Normal [facility] Comment on above: Performed By: #### B MP #### [address] Platelet mean volume (Bld) [Entitic vol] 10.4 fL High 6.6-10.1 [facility] Comment on above: Performed By: #### B MP #### [address] Platelet Morphology Normal Normal Normal [facility] Comment on above: Performed By: #### B MP #### [address] Platelets (Bld) [#/Vol] 155 10*3/uL Normal 150-450 [facility] Comment on above: Performed By: #### B MP #### [address] RBC (Bld) [#/Vol] 4.06 10*6/uL Normal 3.90-5.60 [facility] Comment on above: Performed By: #### B MP #### [address] RBC morphology finding Nom (Bld) Normal Normal Normal [facility] Comment on above: Performed By: #### B MP #### [address] WBC (Bld) [#/Vol] 4.6 10*3/uL Normal 4.1-10.5 [facility] Comment on above: Performed By: #### B MP #### [address] Ambulatory Visit Summaryon 0 03-20-2023 Ambulatory [...] 9:00 AM EDT Where: [facility] Patient Educationon 03-20-20 23 Patient Education Urology [...] and water are not available, use hand equipment analyst. 3. Draw up sterile water into a [...] and water are not available, use hand equipment analyst. 2. Disconnect the bag from the catheter [...] the following methods: ? According to the java developer analyst's instructions. ? As told by your health care provider. 7. Let the bag dry completely. Put it in a clean plastic bag before storing it. General tips ? Always wash your hands before (more content not included)... Normal [facility] Urology Office/Clinic Noteon 03-20-2023 Urology Office/Clinic Note [...] (R33.9: Retention of urine, unspecified) Admitted to [facility] for urosepsis. Presented to [facility] 12/18/22 due to urinary retention. Per [...] When Contact Information WALTER YBARRA, Fidel Hinkle, [facility] [address], [place] [address]- Additional Instructions: 1 month SP tube change [...] Household tobacco (more content not included)... Normal [facility] Comment on above: Result Comment: Elec tronically [...] these instructions at home: Medicines ? Take nzin-npr-rwjnkzb and prescription medicines only as told by [...] provider. Document Revised: 06/26/2021 Document Reviewed: 06/26/2021 [employer] Patient Education ? 2022 [employer] [facility]rology Office/Clinic Noteon 02-20-2023 Urology Office/Clinic Note [...] family member states he was admitted to [facility] for urosepsis. Presented to [facility] 12/18/22 due to urinary retention. Per [...] Information WALTER YBARRA, Fidel Hinkle, [facility] [address] [place] [address]- Additional Instructions: 1 mos SP tube change [...] 0.1 m (more content not included)... Normal [facility] Comment on above: Result Comment: Elec tronically Signed By: Fidel IBARRA MD\.br\Date and Time Signed: 02/20/23 10:22 EDT\.br\Electronically Co-Signed By: Margoth Rodriguez\.br\Date and Time Co-Signed: 02/20/23 10:21 EDT Lab Reportson 02-02-2023 Lab Reports [id number]:127 Normal [facility] Ambulatory Visit Summaryon 0 01-30-2023 Ambulatory Visit [...] YBARRA, Fidel Hinkle Where: [facility] Normal [facility] Patient Educationon 01-31-20 Patient Education Benign Prostatic [...] Follow these instructions at home: ? Take duti-jqu-lagnsto and prescription medicines only as told by [...] develop dianna (more content not included)... Normal [facility] Urology Office/Clinic Noteon 01-30-2023 Urology Office/Clinic Note [...] [facility] [address], [place] [phone] Additional Instructions: 3 weeks for SP tube change Patient Education Benign Prostatic Hyperplasia Indwelling Urinary Catheter Care, Adult, Mvst-ts-Fzxe I, Елена Carney, personally scribed for Dr. [...] Tonsillectomy. Medications (more content not included)... Normal [facility] Comment on above: Result Comment: Elec tronically Signed By: Fidel IBARRA MD\.br\Date and Time Signed: 01/30/23 12:25 EDT\.br\Electronically Co-Signed By: Елена Carney\.br\Date and Time Co-Signed: 01/30/23 12:24 EDT CALCULI, URINARYon 3 2,8 Dihydroxyadenine Normal [facility] Comment on above: Performed By: #### C VDTBH #### [facility] [address] [address] [address] Bruce Nicholas Ammonium Acid Urate Normal [facility] Comment on above: Performed By: #### C VDTBH #### [facility] [address] [address] [address] Bruce Nicholas Bilirubin Ql (U) Normal [facility] Comment on above: Performed By: #### C VDTBH #### [facility] [address] [address] [address] Bruce Nicholas Ca Oxalate Dihydrate 20 % Normal [facility] Comment on above: Performed By: #### C VDTBH #### [facility] [address] [address] [address] Bruce Nicholas CaHPO4 (Brushite) Normal [facility] Comment on above: Performed By: #### C VDTBH #### [facility] [address] [address] [address] Bruce Nicholas Calcium Bilirubinate [facility] Comment on above: Performed By: #### C VDTBH #### [facility] [address] [address] [address] Bruce Nicholas Calcium Carbonate [facility] Comment on above: Performed By: #### C VDTBH #### [facility] [address] [place] [address] Dr. Bruce Nicholas Calcium Oxalate Monohydrate 80 % [facility] Comment on above: Performed By: #### C VDTBH #### [facility] [address] [address] [address] Bruce Nicholas Calcium Palmitate Normal [facility] Comment on above: Performed By: #### C VDTBH #### [facility] [address] [place] [address] Dr. Bruce Nicholas Calcium Phosphate Normal [facility] Comment on above: Performed By: #### C VDTBH #### [facility] [address] [place] [address] Dr. Bruce Nicholas Calcium Stearate [facility] Comment on above: Performed By: #### C VDTBH #### [facility] [address] [place] [address] Dr. Bruce Nicholas Carbonate Apatite Normal [facility] Comment on above: Performed By: #### C VDTBH #### [facility] [address] [place] [address] Dr. Bruce Nicholas Cellular Material [place] [facility] Comment on above: Performed By: #### C VDTBH #### [facility] [address] [address] [address] Bruce Nicholas Cholesterol [facility] Comment on above: Performed By: #### C VDTBH #### [facility] [address] [place] [address] Dr. Bruce Nicholas Color (U) Brown [facility] Comment on above: Performed By: #### C VDTBH #### [facility] [address] [place] [address] Dr. Bruce Nicholas Comment [facility] Comment on above: Performed By: #### C VDTBH #### [facility] [address] [place] [address] Dr. Bruce Nicholas Comment Comment Normal [facility] Comment on above: Result Comment: Calc ulus received wet. Wet calculi must be dried before analysis, which delays reporting of results. Leaving calculi wet (such as water, saline, blood, urine) may lead to changes in composition. Performed By: #### C VDTBH #### [facility] [address] [place] [address] Dr. Bruce Nicholas Comment: Comment Normal [facility] Comment on above: Result Comment: Phys haven behavioral healthcarean questions regarding Calculi Analysis [facility] at: [phone]. Performed By: #### C VDTBH #### [facility] [address] [place] [address] Dr. Bruce Nicholas Composition Comment [facility] Comment on above: Result Comment: Perc entage (Represents the % composition) Performed By: #### C VDTBH #### [facility] [address] [place] [address] Dr. Bruce Nicholas Cystine [facility] Comment on above: Performed By: #### C VDTBH #### [facility] [address] [place] [address] Dr. Bruce Nicholas Disclaimer: Comment Normal [facility] Comment on above: Result Comment: This test was developed and its performance characteristics determined by [facility]. It has not been cleared or approved by the Food and Drug Administration. Performed By: #### C VDTBH #### [facility] [address] [place] [address] Dr. Bruce Nicholas Dried Blood Normal [facility] Comment on above: Performed By: #### C VDTBH #### [facility] [address] [address] [address] Bruce Nicholas Drug or Metabolite Normal [facility] Comment on above: Performed By: #### C VDTBH #### [facility] [address] [address] [address] Bruce Nicholas Hydroxyapatite Normal [facility] Comment on above: Performed By: #### C VDTBH #### [facility] [address] [address] [address] Bruce Nicholas Mg NH4 PO4 (Struvite) [facility] Comment on above: Performed By: #### C VDTBH #### [facility] [address] [address] [address] Bruce Nicholas MgHPO4 (Newberyite) [facility] Comment on above: Performed By: #### C VDTBH #### [facility] [address] [address] [address] Bruce Nicholas Other component(s) Normal [facility] Comment on above: Performed By: #### C VDTBH #### [facility] [address] [address] [address] Bruce Nicholas PDF . [facility] Comment on above: Performed By: #### C VDTBH #### [facility] [address] [address] [address] Bruce Nicholas Photo Comment Normal [facility] Comment on above: Result Comment: Phot ograph will follow under a separate cover Performed By: #### C VDTBH #### [facility] [address] [address] [address] Bruce Nicholas Please note: Comment [facility] Comment on above: Result Comment: Calc jayant report will follow via computer, mail or personal driver delivery. Performed By: #### C VDTBH #### [facility] [address] [address] [address] Bruce Nicholas Size 6x4 [facility] Comment on above: Result Comment: Mult iple pieces received. Dimensions of the largest piece reported. Performed By: #### C VDTBH #### [facility] [address] [place] [address] Dr. Bruce Nicholas Sodium Acid Urate Normal [facility] Comment on above: Performed By: #### C VDTBH #### [facility] [address] [place] [address] Dr. Bruce Nicholas Source Comment [facility] Comment on above: Result Comment: Urin francine Bladder Performed By: #### C VDTBH #### [facility] [address] [place] [address] Dr. Bruce Nicholas Triamterene [facility] Comment on above: Performed By: #### C VDTBH #### [facility] [address] [place] [address] Dr. Bruce Nicholas Uric Acid [facility] Comment on above: Performed By: #### C VDTBH #### [facility] [address] [place] [address] Dr. Bruce Nicholas Uric Acid Dihydrate [facility] Comment on above: Performed By: #### C VDTBH #### [facility] [address] [place] [address] Dr. Bruce Nicholas Weight 615 mg [facility] Comment on above: Performed By: #### C VDTBH #### [facility] [address] [place] [address] Dr. Bruce Nicholas Xanthine [facility] Comment on above: Performed By: #### C VDTBH #### [facility] [address] [place] [address] Dr. Bruce Nicholas ECG 12-Leadon 01-28-2023 ECG 12-Lead [id number]:127 Normal [facility] Operative Reporton Operative Report [id number]:127 Normal [facility] POINT OF CARE GLUCOSEon 040 Glucose [Mass/Vol] 70 mg/dL Critically low 74-106 Th e [facility] Comment on above: Performed By: #### C BC #### [facility] [address] [place] [address] Dr. Bruce Nicholas RAD - MISCon 01-22-2023 RAD - MISC [id number]:127 Normal [facility] CBC AUTO DIFFon 01-20-2023 BASO # 0.0 103/ul Normal 0.0-0.1 [facility] Comment on above: Performed By: #### C VDTBH #### [facility] [address] [place] [address] Dr. Bruce Nicholas Basophils/100 WBC (Bld) 0.2 % Normal 0.2-2.0 [facility] Comment on above: Performed By: #### C VDTBH #### [facility] [address] [place] [address] Dr. Bruce Nicholas EO # 0.1 103/ul Normal 0.0-0.7 [facility] Comment on above: Performed By: #### C VDTBH #### [facility] [address] [place] [address] Dr. Bruce Nicholas Eosinophils/100 WBC (Bld) 0.7 % Critically low 0.9-7.0 [facility] Comment on above: Performed By: #### C VDTBH #### [facility] [address] [place] [address] Dr. Bruce Nicholas Erythrocyte distribution width (RBC) [Ratio] 15.2 % Critically high 11.0-15.0 [facility] Comment on above: Performed By: #### C VDTBH #### [facility] [address] [place] [address] Dr. Bruce Nicholas Hematocrit (Bld) [Volume fraction] 43.0 % Normal 42.0-54.0 [facility] Comment on above: Performed By: #### C VDTBH #### [facility] [address] [place] [address] Dr. Bruce Nicholas Hemoglobin (Bld) [Mass/Vol] 13.7 g/dL Critically low 14.0-18.0 [facility] Comment on above: Performed By: #### C VDTBH #### [facility] [address] [place] [address] Dr. Bruce Nicholas IG # 0.04 10e3/ul Critically high 0.00-0.03 [facility] Comment on above: Performed By: #### C VDTBH #### [facility] [address] [place] [address] Dr. Bruce Nicholas IG % 0.5 % Normal 0.0-0.5 [facility] Comment on above: Performed By: #### C VDTBH #### [facility] [address] [place] [address] Dr. Bruce Nicholas LYMPH # 1.6 103/ul Normal 1.2-3.8 [facility] Comment on above: Performed By: #### C VDTBH #### [facility] [address] [place] [address] Dr. Bruce Nicholas Lymphocytes/100 WBC (Bld) 18.4 % Critically low 20.5-60.0 [facility] Comment on above: Performed By: #### C VDTBH #### [facility] [address] [place] [address] Dr. Bruce Nicholas MANUAL DIFF REQ NO Normal [facility] Comment on above: Performed By: #### C VDTBH #### [facility] [address] [place] [address] Dr. Bruce Nicholas MCH (RBC) [Entitic mass] 28.8 pg Normal 25.9-34.0 [facility] Comment on above: Performed By: #### C VDTBH #### [facility] [address] [place] [address] Dr. Bruce Nicholas MCHC (RBC) [Mass/Vol] 31.9 g/dL Normal 29.9-35.2 [facility] Comment on above: Performed By: #### C VDTBH #### [facility] [address] [place] [address] Dr. Bruce Nicholas MCV (RBC) [Entitic vol] 90.3 fL Normal 80.0-94.0 [facility] Comment on above: Performed By: #### C VDTBH #### [facility] [address] [place] [address] Dr. Bruce Nicholas MONO # 0.6 103/ul Normal 0.3-0.8 [facility] Comment on above: Performed By: #### C VDTBH #### [facility] [address] [place] [address] Dr. Bruce Nicholas Monocytes/100 WBC (Bld) 6.5 % Normal 1.7-12.0 [facility] Comment on above: Performed By: #### C VDTBH #### [facility] [address] [place] [address] Dr. Bruce Nicholas NEUT # 6.4 103/ul Normal 1.4-6.5 [facility] Comment on above: Performed By: #### C VDTB #### [facility] [address] [place] [address] Dr. Bruce Nicholas Neutrophils/100 WBC (Bld) 73.7 % Normal 43.0-75.0 [facility] Comment on above: Performed By: #### C VDTBH #### [facility] [address] [place] [address] Dr. Bruce Nicholas Platelet mean volume (Bld) [Entitic vol] 11.6 fL Normal 9.5-13.5 [facility] Comment on above: Performed By: #### C VDTBH #### [facility] [address] [place] [address] Dr. Bruce Nicholas PLT 229 103/ul Normal 150-450 [facility] Comment on above: Performed By: #### C VDTBH #### [facility] [address] [place] [address] Dr. Bruce Nicholas RBC 4.76 106/ul Normal 4.70-6.10 [facility] Comment on above: Performed By: #### C VDTBH #### [facility] [address] [address] [address] Bruce Nicholas WBC 8.7 103/ul Normal 4.0-11.0 [facility] Comment on above: Performed By: #### C VDTBH #### [facility] [address] [address] [address] Bruce Nicholas PROF CHEM 8 (BAS METB)on Anion gap [Moles/Vol] 11.1 mmol/L Normal [facility] Comment on above: Performed By: #### C BC #### [facility] [address] [place] [address] Dr. Bruce Nicholas Calcium [Mass/Vol] 9.5 mg/dL Normal 8.5-10.1 [facility] Comment on above: Performed By: #### C BC #### [facility] [address] [place] [address] Dr. Bruce Nicholas Chloride [Moles/Vol] 105 mmol/L Normal 98-107 [facility] Comment on above: Performed By: #### C BC #### [facility] [address] [place] [address] Dr. Bruce Nicholas CO2 [Moles/Vol] 27.5 mmol/L Normal 21.0-32.0 [facility] Comment on above: Performed By: #### C BC #### [facility] [address] [place] [address] Dr. Bruce Nicholas Creatinine [Mass/Vol] 0.73 mg/dL Normal 0.70-1.30 [facility] Comment on above: Performed By: #### C BC #### [facility] [address] [place] [address] Dr. Bruce Nicholas EGFR-AF ARGENTINE >60 Normal >=60 [facility] Comment on above: Performed By: #### C BC #### [facility] [address] [place] [address] Dr. Bruce Nicholas EGFR-NON AF ARGENTINE >60 Normal >=60 [facility] Comment on above: Performed By: #### C BC #### [facility] [address] [address] [address] Bruce Nicholas Glucose [Mass/Vol] 97 mg/dL Normal 74-106 [facility] Comment on above: Performed By: #### C BC #### [facility] [address] [address] [address] Bruce Nicholas Potassium [Moles/Vol] 4.1 mmol/L Normal 3.5-5.1 [facility] Comment on above: Performed By: #### C BC #### [facility] [address] [address] [address] Bruce Nicholas Sodium [Moles/Vol] 140 mmol/L Normal 136-145 [facility] Comment on above: Performed By: #### C BC #### [facility] [address] [address] [address] Bruce Nicholas Urea nitrogen [Mass/Vol] 22.0 mg/dL Critically high 7.0-18.0 [facility] Comment on above: Performed By: #### C BC #### [facility] [address] [address] [address] Bruce Nicholas Urea nitrogen/Creatinin e [Mass ratio] 30.1 mg/mg Normal [facility] Comment on above: Performed By: #### C BC #### [facility] [address] [address] [address] Bruce Nicholas Ambulatory Visit Summaryon 0 [...] with WALTER YBARRA, SRIDHAR Ballesteros When: Where: [address] [place] [address]- Medications What How Much When Instructions Unchanged [...] the u (more content not included)... Normal [facility] Consent for Procedure/Surger yon 01-16-2023 Consent for Procedure/Surgery [id number] Normal [facility] Patient Educationon 01-17-20 23 Patient Education Urology [...] Follow these instructions at home: ? Take qwkq-dzh-[id number] and prescription medicines only as told by [...] 01/11/2002 Document Revised: 09/17/2018 Document Reviewed: 11/06/2017 [employer] Patient Education ? 2020 [employer] Normal [facility] Urology Office/Clinic Noteon 01-16-2023 Urology Office/Clinic Note Chief Complaint New Pt *Re Establish Care HPI Staff New pt. Here today to re-establish care. Pt is in Hospice. Wheelchair bound. Last seen in our office 03/11/19 for cath removal following TURP/Removal of Urolift bands done 03/08/19. Pt then no showed to post op TURP appt. Went to [facility] 3/2/23 due to urinary retention. Per [...] a/p done 12/18/22. 6wks ago went to [facility] due to Urosepsis. Catheter was inserted [...] family member states he was admitted to [facility] for urosepsis. Presented to [facility] 12/18/22 due to urinary retention. Per [...] No hydro. Follow-up With When Contact Information Fdiel IBARRA MD, URL [address] [place] [address]- Additional Instructions: Schedule SP tube placement Patient Education Acute Urinary Retention, Male I, Margoth Rodriguez, personally scribed for Dr. Ibarra on (more content not included)... Normal [facility] Comment on above: Result Comment: Elec tronically Signed By: Fidel IBARRA MD\.br\Date and Time Signed: 01/16/23 11:25 EDT\.br\Electronically Co-Signed By: Margoth Rodriguez\.br\Date and Time Co-Signed: 01/16/23 11:12 EDT\.br\Electronically Co-Signed By: Margoth Rodriguez\.br\Date and Time Co-Signed: 01/16/23 11:16 EDT CNOVon 12-24-2022 CNOV Office Visit (URFMOB ) ALISIA CORREA ([id number]) 1960 M Date Time Provider Department 12/24/22 11:30 AM SAY REYES URFMTANVIR During your visit today, we recorded the following information about you: Say Reyes APRN.JUVENILE COUNSELOR 12/24/2022 5:59 PM Signed The patient did [...] Ulcerative lesio (more content not included)... Normal [facility] CULTURE URINEon 12-21-2022 CULTURE URINE Isolate [...] RCX #### [facility] [address] [address] [address] Bruce Nicholas CBC AUTO DIFFon 12-18-2022 BASO # 0.0 103/ul Normal 0.0-0.1 [facility] Comment on above: Performed By: #### P OCGLUC #### [facility] [address] [address] [address] Bruce Nicholas Basophils/100 WBC (Bld) 0.6 % Normal 0.2-2.0 [facility] Comment on above: Performed By: #### P OCGLUC #### [facility] [address] [address] [address] Bruce Nicholas EO # 0.2 103/ul Normal 0.0-0.7 [facility] Comment on above: Performed By: #### P OCGLUC #### [facility] [address] [place] [address] Dr. Bruce Nicholas Eosinophils/100 WBC (Bld) 3.2 % Normal 0.9-7.0 [facility] Comment on above: Performed By: #### P OCGLUC #### [facility] [address] [place] [address] Dr. Bruce Nicholas Erythrocyte distribution width (RBC) [Ratio] 16.6 % Critically high 11.0-15.0 [facility] Comment on above: Performed By: #### P OCGLUC #### [facility] [address] [place] [address] Dr. Bruce Nicholas Hematocrit (Bld) [Volume fraction] 37.9 % Critically low 42.0-54.0 [facility] Comment on above: Performed By: #### P OCGLUC #### [facility] [address] [place] [address] Dr. Bruce Nicholas Hemoglobin (Bld) [Mass/Vol] 12.0 g/dL Critically low 14.0-18.0 [facility] Comment on above: Performed By: #### P OCGLUC #### [facility] [address] [place] [address] Dr. Bruce Nicholas IG # 0.02 10e3/ul Normal 0.00-0.03 [facility] Comment on above: Performed By: #### P OCGLUC #### [facility] [address] [place] [address] Dr. Bruce Nicholas IG % 0.3 % Normal 0.0-0.5 [facility] Comment on above: Performed By: #### P OCGLUC #### [facility] [address] [place] [address] Dr. Bruce Nicholas LYMPH # 1.2 103/ul Normal 1.2-3.8 [facility] Comment on above: Performed By: #### P OCGLUC #### [facility] [address] [address] [address] Bruce Nicholas Lymphocytes/100 WBC (Bld) 16.7 % Critically low 20.5-60.0 [facility] Comment on above: Performed By: #### P OCGLUC #### [facility] [address] [address] [address] Bruce Nicholas MANUAL DIFF REQ NO Normal [facility] Comment on above: Performed By: #### P OCGLUC #### [facility] [address] [address] [address] Bruce Nicholas MCH (RBC) [Entitic mass] 28.4 pg Normal 25.9-34.0 [facility] Comment on above: Performed By: #### P OCGLUC #### [facility] [address] [place] [address] Dr. Bruce Nicholas MCHC (RBC) [Mass/Vol] 31.7 g/dL Normal 29.9-35.2 [facility] Comment on above: Performed By: #### P OCGLUC #### [facility] [address] [address] [address] Bruce Nicholas MCV (RBC) [Entitic vol] 89.6 fL Normal 80.0-94.0 [facility] Comment on above: Performed By: #### P OCGLUC #### [facility] [address] [place] [address] Dr. Bruce Nicholas MONO # 0.6 103/ul Normal 0.3-0.8 [facility] Comment on above: Performed By: #### P OCGLUC #### [facility] [address] [address] [address] Bruce Nicholas Monocytes/100 WBC (Bld) 7.9 % Normal 1.7-12.0 [facility] Comment on above: Performed By: #### P OCGLUC #### [facility] [address] [address] [address] Bruce Nicholas NEUT # 5.0 103/ul Normal 1.4-6.5 [facility] Comment on above: Performed By: #### P OCGLUC #### [facility] [address] [address] [address] Bruce Nicholas Neutrophils/100 WBC (Bld) 71.3 % Normal 43.0-75.0 [facility] Comment on above: Performed By: #### P OCGLUC #### [facility] [address] [address] [address] Bruce Nicholas Platelet mean volume (Bld) [Entitic vol] 12.4 fL Normal 9.5-13.5 [facility] Comment on above: Performed By: #### P OCGLUC #### [facility] [address] [address] [address] Bruce Nicholas PLT 156 103/ul Normal 150-450 [facility] Comment on above: Performed By: #### P OCGLUC #### [facility] [address] [address] [address] Bruce Nicholas RBC 4.23 106/ul Critically low 4.70-6.10 [facility] Comment on above: Performed By: #### P OCGLUC #### [facility] [id number] Bruce Nicholas WBC 6.9 103/ul Normal 4.0-11.0 [facility] Comment on above: Performed By: #### P OCGLUC #### [facility] [id number] Bruce Nicholas CT ABD/PELVIS WO CONon 12-18 CT ABD/PELVIS WO CON EXAMINATION: CT ABD/PELVIS WO CON, 12/18/2022 1:17 PM MST HISTORY: Retention of urine COMPARISON: None. TECHNIQUE: CT scan of the abdomen and pelvis was performed without IV contrast. CT dose reduction technique was used, including Automated Exposure Control. FINDINGS: Sheet Combining Operator: No pertinent findings, which are not [...] Bilirubin Ql (U) Negative Normal NEGATIVE [facility] Comment on above: Performed By: #### P OCGLUC #### [facility] [address] [address] [address] Bruce Nicholas Clarity (U) CLEAR Normal CLEAR [facility] Comment on above: Performed By: #### P OCGLUC #### [facility] [address] [address] [address] Bruce Nicholas Color (U) BROWN Abnormal YELLOW [facility] Comment on above: Performed By: #### P OCGLUC #### [facility] [address] [address] [address] Bruce WHEAT A micrscopic examina tion will be performed if indicated. Normal [facility] Comment on above: Performed By: #### P OCGLUC #### [facility] [address] [address] [address] Bruce Nicholas Glucose Ql (U) Negative Normal NEGATIVE [facility] Comment on above: Performed By: #### P OCGLUC #### [facility] [address] [address] [address] Bruce Nicholas Hemoglobin Ql (U) MODERATE Abnormal NEGATIVE [facility] Comment on above: Performed By: #### P OCGLUC #### [facility] [address] [address] [address] Bruce Nicholas Ketones Ql (U) Negative Normal NEGATIVE [facility] Comment on above: Performed By: #### P OCGLUC #### [facility] [address] [address] [address] Bruce Nicholas LEUKOCYTES LARGE Abnormal NEGATIVE [facility] Comment on above: Performed By: #### P OCGLUC #### [facility] [address] [address] [address] Bruce Nicholas Nitrite Ql (U) Positive Abnormal NEGATIVE [facility] Comment on above: Performed By: #### P OCGLUC #### [facility] [address] [address] [address] Bruce Nicholas pH (U) 6.0 [pH] Normal 5-9 [facility] Comment on above: Performed By: #### P OCGLUC #### [facility] [address] [address] [address] Bruce Nicholas Protein (U) [Mass/Vol] 30 mg/dL Abnormal NEGATIVE/ TRACE [facility] Comment on above: Performed By: #### P OCGLUC #### [facility] [address] [address] [address] Bruce Nicholas SPEC GRAVITY 1.020 Normal 1.005-<=1. 025 [facility] Comment on above: Performed By: #### P OCGLUC #### [facility] [address] [place] [address] Dr. Bruce Nicholas UR MICRO IND INDICATED Normal [facility] Comment on above: Performed By: #### P OCGLUC #### [facility] [address] [place] [address] Dr. Bruce Nicholas Urobilinogen Qn (U) 1.0 {Phillip'U}/dL Normal 0.2 - 1.0 [facility] Comment on above: Performed By: #### P OCGLUC #### [facility] [address] [place] [address] Dr. Bruce Nicholas PROF 14(COMP METB)on 023 Albumin [Mass/Vol] 3.0 g/dL Critically low 3.4-5.0 [facility] Comment on above: Performed By: #### C VDTBH #### [facility] [address] [place] [address] Dr. Bruce Nicholas Albumin/Globulin [Mass ratio] 0.9 {ratio} Normal [facility] Comment on above: Performed By: #### C VDTBH #### [facility] [address] [place] [address] Dr. Bruce Nicholas ALP [Catalytic activity/Vol] 112 U/L Normal 46-116 [facility] Comment on above: Performed By: #### C VDTBH #### [facility] [address] [place] [address] Dr. Bruce Nicholas ALT [Catalytic activity/Vol] 7 U/L Critically low 16-63 [facility] Comment on above: Performed By: #### C VDTBH #### [facility] [address] [place] [address] Dr. Bruce Nicholas Anion gap [Moles/Vol] 5.6 mmol/L Normal [facility] Comment on above: Performed By: #### C VDTBH #### [facility] [address] [place] [address] Dr. Bruce Nicholas AST [Catalytic activity/Vol] 19 U/L Normal 15-37 [facility] Comment on above: Performed By: #### C VDTBH #### [facility] [address] [address] [address] Bruce Nicholas Bilirubin [Mass/Vol] 0.6 mg/dL Normal 0.2-1.0 [facility] Comment on above: Performed By: #### C VDTBH #### [facility] [address] [address] [address] Bruce Nicholas Calcium [Mass/Vol] 9.0 mg/dL Normal 8.5-10.1 [facility] Comment on above: Performed By: #### C VDTBH #### [facility] [address] [address] [address] Bruce Nicholas Chloride [Moles/Vol] 106 mmol/L Normal 98-107 [facility] Comment on above: Performed By: #### C VDTBH #### [facility] [address] [place] [address] Dr. Bruce Nicholas CO2 [Moles/Vol] 29.0 mmol/L Normal 21.0-32.0 [facility] Comment on above: Performed By: #### C VDTBH #### [facility] [address] [place] [address] Dr. Bruce Nicholas Creatinine [Mass/Vol] 0.71 mg/dL Normal 0.70-1.30 [facility] Comment on above: Performed By: #### C VDTBH #### [facility] [address] [place] [address] Dr. Bruce Nicholas EGFR-AF ARGENTINE >60 Normal >=60 [facility] Comment on above: Performed By: #### C VDTBH #### [facility] [address] [place] [address] Dr. Bruce Nicholas EGFR-NON AF ARGENTINE >60 Normal >=60 [facility] Comment on above: Performed By: #### C VDTBH #### [facility] [address] [place] [address] Dr. Bruce Nicholas Globulin (S) [Mass/Vol] 3.2 g/dL Normal [facility] Comment on above: Performed By: #### C VDTBH #### [facility] [address] [address] [address] Bruce Nicholas Glucose [Mass/Vol] 93 mg/dL Normal 74-106 [facility] Comment on above: Performed By: #### C VDTBH #### [facility] [address] [place] [address] Dr. Bruce Nicholas Potassium [Moles/Vol] 3.6 mmol/L Normal 3.5-5.1 [facility] Comment on above: Performed By: #### C VDTBH #### [facility] [address] [place] [address] Dr. Bruce Nicholas Protein [Mass/Vol] 6.2 g/dL Critically low 6.4-8.2 [facility] Comment on above: Performed By: #### C VDTBH #### [facility] [address] [place] [address] Dr. Bruce Nicholas Sodium [Moles/Vol] 137 mmol/L Normal 136-145 [facility] Comment on above: Performed By: #### C VDTBH #### [facility] [address] [place] [address] Dr. Bruce Nicholas Urea nitrogen [Mass/Vol] 22.0 mg/dL Critically high 7.0-18.0 [facility] Comment on above: Performed By: #### C VDTBH #### [facility] [address] [place] [address] Dr. Bruce Nicholas Urea nitrogen/Creatinin e [Mass ratio] 31.0 mg/mg Normal [facility] Comment on above: Performed By: #### C VDTBH #### [facility] [address] [place] [address] Dr. Bruce Nicholas URINE MICROSCOPIC ONLYon BACTERIA SMALL Abnormal NONE SEEN [facility] Comment on above: Performed By: #### P OCGLUC #### [facility] [address] [place] [address] Dr. Bruce Nicholas Bacteria identified Cx Nom (U) INDICATED Normal [facility] Comment on above: Performed By: #### P OCGLUC #### [facility] [address] [address] [address] Bruce Nicholas CAST NONE SEEN Normal NONE SEEN [facility] Comment on above: Performed By: #### P OCGLUC #### [facility] [address] [address] [address] Bruce Nicholas Crystals LM Nom (Urine sed) NONE SEEN Normal NONE SEEN [facility] Comment on above: Performed By: #### P OCGLUC #### [facility] [address] [address] [address] Bruce Nicholas Epithelial cells LM Ql (Urine sed) NONE SEEN Normal NONE SEEN /RARE [facility] Comment on above: Performed By: #### P OCGLUC #### [facility] [address] [address] [address] Bruce Nicholas MUCOUS NONE SEEN Normal NONE SEEN [facility] Comment on above: Performed By: #### P OCGLUC #### [facility] [address] [address] [address] Bruce Nicholas RBC 10-20 Abnormal 0-2 [facility] Comment on above: Performed By: #### P OCGLUC #### [facility] [address] [address] [address] Bruce Nicholas WBC 50-75 Abnormal NONE SEEN [facility] Comment on above: Performed By: #### P OCGLUC #### [facility] [address] [address] [address] Bruce Nicholas CASE MANAGEMon 12-06-2022 CASE MANAGEM Normal [facility] CNDSon 12-06-2022 CNDS Normal [facility] CASE MANAGEMon 12-05-2022 CASE MANAGEM Normal [facility] CONSULT PROGon 12-05-2022 CONSULT PROG Normal [facility] NUTRITIONon 12-05-2022 NUTRITION Normal [facility] SOCIAL WORKon 12-05-2022 SOCIAL WORK Normal [facility] CASE MANAGEMon 12-04-2022 CASE MANAGEM Normal [facility] CONSULTon 12-04-2022 CONSULT Normal [facility] ALLIED HEALTHon 12-03-2022 ALLIED HEALTH Normal [facility] CASE MANAGEMon 02-15-2023 CASE MANAGEM Normal [facility] CBC panel Auto (Bld)on 12-03 Erythrocyte distribution width (RBC) [Ratio] 16.1 % High 11.5-15.0 [facility] Comment on above: Order Comment: Speci men Type: BLOOD SPECIMENOrdering Facility: [facility] Address: [address] [place] [address] Performed By: #### 5 8410-2 ####[facility] LABIA [id number] [address] [place] Hematocrit (Bld) [Volume fraction] 38.3 % Low 39.0-51.0 [facility] Comment on above: Order Comment: Speci men Type: BLOOD SPECIMENOrdering Facility: [facility] Address: [address] [place] [address] Performed By: #### 5 8410-2 ####[facility] LABIA [id number] [address] STATES OF [facility] Hemoglobin (Bld) [Mass/Vol] 12.4 g/dL Low 13.0-17.0 [facility] Comment on above: Order Comment: Speci men Type: BLOOD SPECIMENOrdering Facility: [facility] Address: [address] [place] [address] Performed By: #### 5 8410-2 ####[facility] LABIA [id number] [place] [address] [place] MCH (RBC) [Entitic mass] 28.1 pg Normal 26.0-34.0 [facility] Comment on above: Order Comment: Speci men Type: BLOOD SPECIMENOrdering Facility: [facility] Address: [address] [place] [address] Performed By: #### 5 8410-2 ####[facility] LABIA [id number] [place] [address] [place] MCHC (RBC) [Mass/Vol] 32.4 g/dL Normal 30.5-36.0 [facility] Comment on above: Order Comment: Speci men Type: BLOOD SPECIMENOrdering Facility: [facility] Address: [address] [place], [place] [address] Performed By: #### 5 8410-2 ####[facility] [id number] [address] [place] MCV (RBC) [Entitic vol] 86.7 fL Normal 80.0-100.0 [facility] Comment on above: Order Comment: Speci men Type: BLOOD SPECIMENOrdering Facility: [facility] Address: [address] Performed By: #### 5 8410-2 ####[facility] [id number] [address] [place] Nucleated RBC (Bld) [#/Vol] 10*3/uL Normal <0.01 [facility] Comment on above: Order Comment: Speci men Type: BLOOD SPECIMENOrdering Facility: [facility] Address: [address] [place], [place] [address] Performed By: #### 5 8410-2 ####[facility] [id number] [address] [place] Platelet mean volume (Bld) [Entitic vol] 13.0 fL High 9.0-12.7 [facility] Comment on above: Order Comment: Speci men Type: BLOOD SPECIMENOrdering Facility: [facility] Address: [address] Performed By: #### 5 8410-2 ####[facility] LABIA [id number] [place] [address] [place] Platelets (Bld) [#/Vol] 144 10*3/uL Low 150-400 [facility] Comment on above: Order Comment: Speci men Type: BLOOD SPECIMENOrdering Facility: [facility] Address: [address] [place], [place] [address] Result Comment: Resu lts checked and verified.No clot detected. Performed By: #### 5 8410-2 ####[facility] LABCLIA [id number] [place] [address] [place] RBC (Bld) [#/Vol] 4.42 10*6/uL Normal 4.20-6.00 [facility] Comment on above: Order Comment: Speci men Type: BLOOD SPECIMENOrdering Facility: [facility] Address: [address] Performed By: #### 5 8410-2 ####[facility] LABIA [id number] [place] [address] [place] WBC (Bld) [#/Vol] 9.30 10*3/uL Normal 3.70-11.00 [facility] Comment on above: Order Comment: Speci men Type: BLOOD SPECIMENOrdering Facility: [facility] Address: [address] Performed By: #### 5 8410-2 ####[facility] LABIA [id number] [place] [address] [place] CONSULT PROGon 12-03-2022 CONSULT PROG Normal [facility] ECG COMPLETEon 12-03-2022 ECG COMPLETE Normal [facility] Gas and Carbon monoxide pane l (BldV)on 12-03-2022 Base excess Calc (BldV) [Moles/Vol] 1 mmol/L Normal 0-2 [facility] Comment on above: Order Comment: Speci men Type: VENOUS BLOOD SPECIMENOrdering Facility: [facility] Address: [address] Performed By: #### 2 4344-4 ####[facility] LABCLIA [id number] [place] [address] [place] Body temperature 97.52 [degF] Normal [facility] Comment on above: Order Comment: Speci men Type: VENOUS BLOOD SPECIMENOrdering Facility: [facility] Address: [address] [place] [address] Performed By: #### 2 4344-4 ####[facility] LABCLIA [id number] [place] [address] [place] Calcium.ionized (Bld) [Mass/Vol] 1.17 mmol/L Normal 1.08-1.30 [facility] Comment on above: Order Comment: Speci men Type: VENOUS BLOOD SPECIMENOrdering Facility: [facility] Address: [address] [place] [address] Performed By: #### 2 4344-4 ####[facility] LABIA [id number] [place] [address] [place] Calcium.ionized adjusted to pH 7.4 (BldA) [Moles/Vol] 1.19 mmol/L Normal 1.08-1.30 [facility] Comment on above: Order Comment: Speci men Type: VENOUS BLOOD SPECIMENOrdering Facility: [facility] Address: [address] [place] [address] Performed By: #### 2 4344-4 ####[facility] LABIA [id number] [place] [address] [place] Carboxyhemoglobin (BldV) [Mass fraction] 0.6 % Normal 0.0-2.0 [facility] Comment on above: Order Comment: Speci men Type: VENOUS BLOOD SPECIMENOrdering Facility: [facility] Address: [address] [place], [place] [address] Result Comment: Carb oxyhemoglobin Reference Range for Smokers: 2.0-8.0% Performed By: #### 2 4344-4 ####[facility] LABIA [id number] [place] [address] [place] CO2 (BldV) [Partial pressure] 38 mm[Hg] Low 42-55 [facility] Comment on above: Order Comment: Speci men Type: VENOUS BLOOD SPECIMENOrdering Facility: [facility] Address: [address] Performed By: #### 2 4344-4 ####[facility] LABCLIA [id number] [place] [address] [place] CO2 [Moles/Vol] 26 mmol/L Normal 25-29 [facility] Comment on above: Order Comment: Speci men Type: VENOUS BLOOD SPECIMENOrdering Facility: [facility] Address: [address] Performed By: #### 2 4344-4 ####[facility] LABCLIA [id number] [place] [address] [place] CO2 adjusted to patient's actual temperature (BldV) [Partial pressure] 37 mmHg Low 42-55 [facility] Comment on above: Order Comment: Speci men Type: VENOUS BLOOD SPECIMENOrdering Facility: [facility] Address: [address] Performed By: #### 2 4344-4 ####[facility] LABCLIA [id number] [place] [address] [place] Glucose [Mass/Vol] 110 mg/dL High 60-105 [facility] Comment on above: Order Comment: Speci men Type: VENOUS BLOOD SPECIMENOrdering Facility: [facility] Address: [address] Performed By: #### 2 4344-4 ####[facility] LABCLIA [id number] [place] [address] [place] HCO3 (Bld) [Moles/Vol] 25 mmol/L Normal 24-28 [facility] Comment on above: Order Comment: Speci men Type: VENOUS BLOOD SPECIMENOrdering Facility: [facility] Address: [address] Performed By: #### 2 4344-4 ####[facility] LABCLIA [id number] [place] [address] [place] Hematocrit (Bld) [Volume fraction] 36.2 % Low 39.0-51.0 [facility] Comment on above: Order Comment: Speci men Type: VENOUS BLOOD SPECIMENOrdering Facility: [facility] Address: [address] [place] [address] Performed By: #### 2 4344-4 ####[facility] [id number] [place] [address] [place] Hemoglobin (Bld) [Mass/Vol] 11.8 g/dL Low 13.0-17.0 [facility] Comment on above: Order Comment: Speci men Type: VENOUS BLOOD SPECIMENOrdering Facility: [facility] Address: [address] [place] [address] Performed By: #### 2 4344-4 ####[facility] [id number] [place] [address] [place] Lactate [Moles/Vol] 1.2 mmol/L Normal 0.5-2.2 [facility] Comment on above: Order Comment: Speci men Type: VENOUS BLOOD SPECIMENOrdering Facility: [facility] Address: [address] [place] [address] Performed By: #### 2 4344-4 ####[facility] [id number] [place] [address] [place] Methemoglobin (Bld) [Mass fraction] 1.5 % Normal 0.0-1.5 [facility] Comment on above: Order Comment: Speci men Type: VENOUS BLOOD SPECIMENOrdering Facility: [facility] Address: [address] [place], [place] [address] Performed By: #### 2 4344-4 ####[facility] [id number] [place] [address] [place] O2 THERAPY RA=Room Air Normal [facility] Comment on above: Order Comment: Speci men Type: VENOUS BLOOD SPECIMENOrdering Facility: [facility] Address: [address] [place] [address] Performed By: #### 2 4344-4 ####[facility] LABCLIA [id number] [place] [address] [place] Oxygen (BldV) [Partial pressure] 56 mm[Hg] High 35-45 [facility] Comment on above: Order Comment: Speci men Type: VENOUS BLOOD SPECIMENOrdering Facility: [facility] Address: [address] Performed By: #### 2 4344-4 ####[facility] LABCLIA [id number] [place] [address] [place] Oxygen adjusted to patient's actual temperature (BldV) [Partial pressure] 54 mmHg High 35-45 [facility] Comment on above: Order Comment: Speci men Type: VENOUS BLOOD SPECIMENOrdering Facility: [facility] Address: [address] [place] [address] Performed By: #### 2 4344-4 ####[facility] LABCLIA [id number] [place] [address] [place] Oxygen saturation in Venous blood 88 % High 60-85 [facility] Comment on above: Order Comment: Speci men Type: VENOUS BLOOD SPECIMENOrdering Facility: [facility] Address: [address] [place] [address] Performed By: #### 2 4344-4 ####[facility] LABCLIA [id number] [place] [address] [place] Oxyhemoglobin (BldV) [Mass fraction] 86 % High 60-85 [facility] Comment on above: Order Comment: Speci men Type: VENOUS BLOOD SPECIMENOrdering Facility: [facility] Address: [address] [place] [address] Performed By: #### 2 4344-4 ####[facility] LABCLIA [id number] [place] [address] [place] pH (BldV) 7.43 [pH] High 7.32-7.42 [facility] Comment on above: Order Comment: Speci men Type: VENOUS BLOOD SPECIMENOrdering Facility: [facility] Address: [address] [place] [address] Performed By: #### 2 4344-4 ####[facility] LABIA [id number] [place] [address] [place] pH adjusted to patient's actual temperature (BldV) 7.44 High 7.32-7.42 [facility] Comment on above: Order Comment: Speci men Type: VENOUS BLOOD SPECIMENOrdering Facility: [facility] Address: [address] [place] [address] Performed By: #### 2 4344-4 ####[facility] LABIA [id number] [place] [address] [place] Potassium [Moles/Vol] 3.7 mmol/L Normal 3.5-5.0 [facility] Comment on above: Order Comment: Speci men Type: VENOUS BLOOD SPECIMENOrdering Facility: [facility] Address: [address] [place] [address] Performed By: #### 2 4344-4 ####[facility] LABIA [id number] [place] [address] [place] Sodium [Moles/Vol] 136 mmol/L Normal 136-144 [facility] Comment on above: Order Comment: Speci men Type: VENOUS BLOOD SPECIMENOrdering Facility: [facility] Address: [address] [place], [place] [address] Performed By: #### 2 4344-4 ####[facility] LABIA [id number] [place] [address] [place] MEDICAL EMERon 12-03-2022 MEDICAL KALEB Normal [facility] Magnesium SerPl-mCncon 12-03 Magnesium [Mass/Vol] 2.0 mg/dL Normal 1.7-2.3 [facility] Comment on above: Order Comment: Speci men Type: BLOOD SPECIMENOrdering Facility: [facility] Address: [address] [place] [address] Performed By: #### 2 4362-6, ####[facility] LABCLIA [id number] [place] [address] [place] NURSING PROGon 12-03-2022 NURSING PROG Normal [facility] Renal function 2000 panelon 12-03-2022 Albumin [Mass/Vol] 3.0 g/dL Low 3.9-4.9 [facility] Comment on above: Order Comment: Speci men Type: BLOOD SPECIMENOrdering Facility: [facility] Address: [address] [place], [place] [address] Performed By: #### 2 4362-6, ####[facility] LABCLIA [id number] [place] [address] [place] Anion gap [Moles/Vol] 9 mmol/L Normal 9-18 [facility] Comment on above: Order Comment: Speci men Type: BLOOD SPECIMENOrdering Facility: [facility] Address: [address] [place], [place] [address] Performed By: #### 2 4362-6, ####[facility] LABCLIA [id number] [place] [address] [place] Calcium [Mass/Vol] 8.9 mg/dL Normal 8.5-10.2 [facility] Comment on above: Order Comment: Speci men Type: BLOOD SPECIMENOrdering Facility: [facility] Address: [address] [place], [place] [address] Performed By: #### 2 4362-6, ####[facility] LABCLIA [id number] [address] STATES OF [facility] Chloride [Moles/Vol] 104 mmol/L Normal 97-105 [facility] Comment on above: Order Comment: Speci men Type: BLOOD SPECIMENOrdering Facility: [facility] Address: [address] [place] [address] Performed By: #### 2 4362-6, ####[facility] LABIA [id number] [address] [place] CO2 [Moles/Vol] 25 mmol/L Normal 22-30 [facility] Comment on above: Order Comment: Speci men Type: BLOOD SPECIMENOrdering Facility: [facility] Address: [address] [place] [address] Performed By: #### 2 4362-6, ####[facility] LABIA [id number] [address] OF [facility] Creatinine [Mass/Vol] 0.62 mg/dL Low 0.73-1.22 [facility] Comment on above: Order Comment: Speci men Type: BLOOD SPECIMENOrdering Facility: [facility] Address: [address] [place] [address] Performed By: #### 2 4362-6, ####[facility] LABIA [id number] [address] OF [facility] ESTIMATED GLOMERULAR FILTRATION RATE 107 mL/min/1.73m??? Normal >=60 [facility] Comment on above: Order Comment: Speci men Type: BLOOD SPECIMENOrdering Facility: [facility] Address: [address] [place] [address] Result Comment: Karina mated Glomerular Filtration Rate [...] actual GFR. Performed By: #### 2 4362-6, ####[facility] LABIA [id number] [place] [address] [place] Glucose [Mass/Vol] 87 mg/dL Normal 74-99 [facility] Comment on above: Order Comment: Chaz trevizo Type: BLOOD SPECIMENOrdering Facility: [facility] Address: [address] [place] [address] Result Comment: The [place] [employer] (ADA) provides guidance for cutoff [...] Standards of Medical Care in Diabetes 2016, [place] [employer]. Diabetes Care. 2016.39(Suppl 1). Performed By: #### 2 4362-6, ####[facility] LABIA [id number] [place] [address] [place] Phosphate [Mass/Vol] 2.4 mg/dL Low 2.7-4.8 [facility] Comment on above: Order Comment: Chaz trevizo Type: BLOOD SPECIMENOrdering Facility: [facility] Address: [address] [place] [address] Performed By: #### 2 4362-6, ####[facility] LABIA [id number] [place] [address] [place] Potassium [Moles/Vol] 3.8 mmol/L Normal 3.7-5.1 [facility] Comment on above: Order Comment: Chaz trevizo Type: BLOOD SPECIMENOrdering Facility: [facility] Address: [address] Performed By: #### 2 4362-6, ####[facility] LABCLIA [id number] [place] [address] [place] Sodium [Moles/Vol] 138 mmol/L Normal 136-144 [facility] Comment on above: Order Comment: Speci men Type: BLOOD SPECIMENOrdering Facility: [facility] Address: [address] [place] [address] Performed By: #### 2 4362-6, ####[facility] LABIA [id number] [place] [address] [place] Urea nitrogen [Mass/Vol] 24 mg/dL Normal 9-24 [facility] Comment on above: Order Comment: Speci men Type: BLOOD SPECIMENOrdering Facility: [facility] Address: [address] [place] [address] Performed By: #### 2 4362-6, ####[facility] LABIA [id number] [place] [address] [place] THERAPY NTon 12-03-2022 THERAPY NT Normal [facility] Basic metabolic 2000 panelon 12-02-2022 Anion gap [Moles/Vol] 7 mmol/L Low 9-18 [facility] Comment on above: Order Comment: Speci men Type: BLOOD SPECIMENOrdering Facility: [facility] Address: [address] [place], [place] [address] Performed By: #### 1 9123-9, 2777-1, 88693-3 ####[facility] LABIA [id number] [place] [address] [place] Calcium [Mass/Vol] 8.5 mg/dL Normal 8.5-10.2 [facility] Comment on above: Order Comment: Speci men Type: BLOOD SPECIMENOrdering Facility: [facility] Address: [address] [place] [address] Performed By: #### 1 9123-9, 2777-1, 95461-9 ####[facility] LABCLIA [id number] [place] [address] [place] Chloride [Moles/Vol] 106 mmol/L High 97-105 [facility] Comment on above: Order Comment: Speci men Type: BLOOD SPECIMENOrdering Facility: [facility] Address: [address] [place] [address] Performed By: #### 1 9123-9, 2777-1, 55974-1 ####[facility] LABCLIA [id number] [place] [address] [place] CO2 [Moles/Vol] 27 mmol/L Normal 22-30 [facility] Comment on above: Order Comment: Speci men Type: BLOOD SPECIMENOrdering Facility: [facility] Address: [address] [place] [address] Performed By: #### 1 9123-9, 2777, 13442-9 ####[facility] LABIA [id number] [place] [address] [place] Creatinine [Mass/Vol] 0.69 mg/dL Low 0.73-1.22 [facility] Comment on above: Order Comment: Speci men Type: BLOOD SPECIMENOrdering Facility: [facility] Address: [address] [place], [place] [address] Performed By: #### 1 9123-9, 2777, 66923-6 ####[facility] LABIA [id number] [place] [address] [place] ESTIMATED GLOMERULAR FILTRATION RATE 103 mL/min/1.73m??? Normal >=60 [facility] Comment on above: Order Comment: Speci men Type: BLOOD SPECIMENOrdering Facility: [facility] Address: [address] [place] [address] Result Comment: Karina mated Glomerular Filtration Rate [...] GFR. Performed By: #### 1 9123-9, 2777-1, 77676-8 ####[facility] LABCLIA [id number] [place] [address] [place] Glucose [Mass/Vol] 78 mg/dL Normal 74-99 [facility] Comment on above: Order Comment: Chaz trevizo Type: BLOOD SPECIMENOrdering Facility: [facility] Address: [address] [place], [place] [address] Result Comment: The [place] [employer] (ADA) provides guidance for cutoff [...] Standards of Medical Care in Diabetes 2016, [place] [employer]. Diabetes Care. 2016.39(Suppl 1). Performed By: #### 1 9123-9, 2777-, 81900-6 ####[facility] LABCLIA [id number] [place] [id number] [place] Potassium [Moles/Vol] 3.6 mmol/L Low 3.7-5.1 [facility] Comment on above: Order Comment: Chaz trevizo Type: BLOOD SPECIMENOrdering Facility: [facility] Address: [address] [place] [address] Performed By: #### 1 9123-9, 2777-, 45379-2 ####[facility] LABCLIA [id number] [place] [address] [place] Sodium [Moles/Vol] 140 mmol/L Normal 136-144 [facility] Comment on above: Order Comment: Speci men Type: BLOOD SPECIMENOrdering Facility: [facility] Address: [address] [place] [address] Performed By: #### 1 9123-9, 2777-1, 28830-5 ####[facility] LABCLIA [id number] [place] [address] [place] Urea nitrogen [Mass/Vol] 26 mg/dL High 9-24 [facility] Comment on above: Order Comment: Speci men Type: BLOOD SPECIMENOrdering Facility: [facility] Address: [address] [place] [address] Performed By: #### 1 9123-9, 2777-1, 53904-9 ####[facility] LABCLIA [id number] [place] [address] [place] CASE MANAGEMon 12-02-2022 CASE MANAGEM Normal [facility] CBC panel Auto (Bld)on 12-02 Erythrocyte distribution width (RBC) [Ratio] 16.2 % High 11.5-15.0 [facility] Comment on above: Order Comment: Speci men Type: BLOOD SPECIMENOrdering Facility: [facility] Address: [address] [place] [address] Performed By: #### 5 8410-2 ####[facility] LABIA [id number] [address] [place] Hematocrit (Bld) [Volume fraction] 39.0 % Normal 39.0-51.0 [facility] Comment on above: Order Comment: Speci men Type: BLOOD SPECIMENOrdering Facility: [facility] Address: [address] [place] [address] Performed By: #### 5 8410-2 ####[facility] LABCLIA [id number] [place] [address] [place] [place] Hemoglobin (Bld) [Mass/Vol] 12.6 g/dL Low 13.0-17.0 [facility] Comment on above: Order Comment: Speci men Type: BLOOD SPECIMENOrdering Facility: [facility] Address: [address] [place] [address] Performed By: #### 5 8410-2 ####[facility] LABIA [id number] [address] [place] MCH (RBC) [Entitic mass] 27.8 pg Normal 26.0-34.0 [facility] Comment on above: Order Comment: Speci men Type: BLOOD SPECIMENOrdering Facility: [facility] Address: [address] [place] [address] Performed By: #### 5 8410-2 ####[facility] [id number] [address] [place] MCHC (RBC) [Mass/Vol] 32.3 g/dL Normal 30.5-36.0 [facility] Comment on above: Order Comment: Speci men Type: BLOOD SPECIMENOrdering Facility: [facility] Address: [address] [place] [address] Performed By: #### 5 8410-2 ####[facility] [id number] [address] [place] MCV (RBC) [Entitic vol] 85.9 fL Normal 80.0-100.0 [facility] Comment on above: Order Comment: Speci men Type: BLOOD SPECIMENOrdering Facility: [facility] Address: [address] [place] [address] Performed By: #### 5 8410-2 ####[facility] [id number] [place] [address] [place] Nucleated RBC (Bld) [#/Vol] 10*3/uL Normal <0.01 [facility] Comment on above: Order Comment: Speci men Type: BLOOD SPECIMENOrdering Facility: [facility] Address: [address] [place] [address] Performed By: #### 5 8410-2 ####[facility] LABCLIA [id number] [place] [address] [place] Platelet mean volume (Bld) [Entitic vol] 12.8 fL High 9.0-12.7 [facility] Comment on above: Order Comment: Speci men Type: BLOOD SPECIMENOrdering Facility: [facility] Address: [address] [place] [address] Performed By: #### 5 8410-2 ####[facility] LABIA [id number] [place] [address] [place] Platelets (Bld) [#/Vol] 129 10*3/uL Low 150-400 [facility] Comment on above: Order Comment: Speci men Type: BLOOD SPECIMENOrdering Facility: [facility] Address: [address] [place] [address] Result Comment: No c lot detected.Results checked and verified. Performed By: #### 5 8410-2 ####[facility] LABIA [id number] [place] [address] [place] RBC (Bld) [#/Vol] 4.54 10*6/uL Normal 4.20-6.00 [facility] Comment on above: Order Comment: Speci men Type: BLOOD SPECIMENOrdering Facility: [facility] Address: [address] [place] [address] Performed By: #### 5 8410-2 ####[facility] LABCLIA [id number] [place] [address] [place] WBC (Bld) [#/Vol] 9.16 10*3/uL Normal 3.70-11.00 [facility] Comment on above: Order Comment: Speci men Type: BLOOD SPECIMENOrdering Facility: [facility] Address: [address] [place] [address] Performed By: #### 5 8410-2 ####[facility] LABIA [id number] [place] [address] [place] CONSULT PROGon 12-02-2022 CONSULT PROG Normal [facility] ECG COMPLETEon 12-02-2022 ECG COMPLETE Normal [facility] Magnesium SerPl-mCncon 12-02 Magnesium [Mass/Vol] 1.8 mg/dL Normal 1.7-2.3 [facility] Comment on above: Order Comment: Speci men Type: BLOOD SPECIMENOrdering Facility: [facility] Address: [address] [place] [address] Performed By: #### 1 9123-9, 2777-1, 22674-9 ####[facility] LABIA [id number] [place] [address] [place] Phosphate SerPl-mCncon 12-02 Phosphate [Mass/Vol] 2.7 mg/dL Normal 2.7-4.8 [facility] Comment on above: Order Comment: Speci men Type: BLOOD SPECIMENOrdering Facility: [facility] Address: [address] [place] [address] Performed By: #### 1 9123-9, 2777-1, 62738-8 ####[facility] LABIA [id number] [place] [id number] [place] THERAPY NTon 12-02-2022 THERAPY NT Normal [facility] Basic metabolic 2000 panelon 12-01-2022 Anion gap [Moles/Vol] 10 mmol/L Normal 9-18 [facility] Comment on above: Order Comment: Speci men Type: BLOOD SPECIMENOrdering Facility: [facility] Address: [address] [place] [address] Performed By: #### 2 4321-2 ####[facility] LABCLIA [id number] [place] [id number] [place] Anion gap [Moles/Vol] 7 mmol/L Low 9-18 [facility] Comment on above: Order Comment: Speci men Type: BLOOD SPECIMENOrdering Facility: [facility] Address: [address] [place] [address] Performed By: #### 2 4321-2, 2776-10, ####[facility] LABCLIA [id number] [place] [address] [place] Calcium [Mass/Vol] 8.8 mg/dL Normal 8.5-10.2 [facility] Comment on above: Order Comment: Speci men Type: BLOOD SPECIMENOrdering Facility: [facility] Address: [address] [place] [address] Performed By: #### 2 4321-2 ####[facility] LABCLIA [id number] [place] [address] [place] Calcium [Mass/Vol] 8.9 mg/dL Normal 8.5-10.2 [facility] Comment on above: Order Comment: Speci men Type: BLOOD SPECIMENOrdering Facility: [facility] Address: [address] [place] [address] Performed By: #### 2 4321-2, 2776-10, ####[facility] LABCLIA [id number] [place] [address] [place] Chloride [Moles/Vol] 103 mmol/L Normal 97-105 [facility] Comment on above: Order Comment: Speci men Type: BLOOD SPECIMENOrdering Facility: [facility] Address: [address] [place] [address] Performed By: #### 2 4321-2 ####[facility] LABCLIA [id number] [place] [address] [place] Chloride [Moles/Vol] 104 mmol/L Normal 97-105 [facility] Comment on above: Order Comment: Speci men Type: BLOOD SPECIMENOrdering Facility: [facility] Address: [address] [place] [address] Performed By: #### 2 4321-2, 2776-10, ####[facility] LABCLIA [id number] [place] [address] [place] CO2 [Moles/Vol] 25 mmol/L Normal 22-30 [facility] Comment on above: Order Comment: Speci men Type: BLOOD SPECIMENOrdering Facility: [facility] Address: [address] [place], [place] [address] Performed By: #### 2 4321-2 ####[facility] LABCLIA [id number] [address] Performed By: #### 2 4321-2, 2776-10, ####[facility] LABCLIA [id number] [place] [id number] [place] Creatinine [Mass/Vol] 0.93 mg/dL Normal 0.73-1.22 [facility] Comment on above: Order Comment: Speci men Type: BLOOD SPECIMENOrdering Facility: [facility] Address: [address] [place] [address] Performed By: #### 2 1-2 ####[facility] LABCLIA [id number] [place] [id number] [facility] Performed By: #### 2 4321-2, 2776-10, ####[facility] LABCLIA [id number] [place] [id number] [place] ESTIMATED GLOMERULAR FILTRATION RATE 92 mL/min/1.73m??? Normal >=60 [facility] Comment on above: Order Comment: Speci men Type: BLOOD SPECIMENOrdering Facility: [facility] Address: [facility] [place] [id number] Result Comment: Karina mated Glomerular Filtration Rate [...] actual GFR. Performed By: #### 2 4321-2 ####[facility] LABCLIA [id number] [address] [place] Performed By: #### 2 4321-2, 2776-, ####[facility] LABCLIA [id number] [place] [address] [place] Glucose [Mass/Vol] 81 mg/dL Normal 74-99 [facility] Comment on above: Order Comment: Speci men Type: BLOOD SPECIMENOrdering Facility: [facility] Address: [address] [place] [address] Result Comment: The [place] [employer] (ADA) provides guidance for cutoff [...] Standards of Medical Care in Diabetes 2016, [place] [employer]. Diabetes Care. 2016.39(Suppl 1). Performed By: #### 2 4321-2 ####[facility] LABCLIA [id number] [place] [id number] [place] Performed By: #### 2 4321-2, 7-, ####[facility] LABCLIA [id number] [place] [address] [place] Potassium [Moles/Vol] 4.2 mmol/L Normal 3.7-5.1 [facility] Comment on above: Order Comment: Speci men Type: BLOOD SPECIMENOrdering Facility: [facility] Address: [address] [place] [address] Performed By: #### 2 4321-2 ####[facility] LABCLIA [id number] [place] [address] [place] Potassium [Moles/Vol] 4.3 mmol/L Normal 3.7-5.1 [facility] Comment on above: Order Comment: Speci men Type: BLOOD SPECIMENOrdering Facility: [facility] Address: [address] [place] [address] Performed By: #### 2 4321-2, 2776-10, ####[facility] LABCLIA [id number] [place] [address] [place] Sodium [Moles/Vol] 138 mmol/L Normal 136-144 [facility] Comment on above: Order Comment: Speci men Type: BLOOD SPECIMENOrdering Facility: [facility] Address: [address] [place], [place] [address] Performed By: #### 2 4321-2 ####[facility] LABCLIA [id number] [place] [address] [place] Sodium [Moles/Vol] 136 mmol/L Normal 136-144 [facility] Comment on above: Order Comment: Speci men Type: BLOOD SPECIMENOrdering Facility: [facility] Address: [address] [place] [address] Performed By: #### 2 4321-2, 2776-10, ####[facility] LABCLIA [id number] [place] [address] [place] Urea nitrogen [Mass/Vol] 34 mg/dL High 9-24 [facility] Comment on above: Order Comment: Speci men Type: BLOOD SPECIMENOrdering Facility: [facility] Address: [address] Performed By: #### 2 4321-2 ####[facility] LABCLIA [id number] [place] [address] [place] Urea nitrogen [Mass/Vol] 35 mg/dL High 9-24 [facility] Comment on above: Order Comment: Speci men Type: BLOOD SPECIMENOrdering Facility: [facility] Address: [address] [place] [address] Performed By: #### 2 4321-2, 2777-1, 42896-9 ####[facility] LABCLIA [id number] [place] [address] [place] CBC panel Auto (Bld)on 12-01 Erythrocyte distribution width (RBC) [Ratio] 16.6 % High 11.5-15.0 [facility] Comment on above: Order Comment: Speci men Type: BLOOD SPECIMENOrdering Facility: [facility] Address: [address] [place] [address] Performed By: #### 5 8410-2 ####[facility] LABCLIA [id number] [place] [address] [place] Hematocrit (Bld) [Volume fraction] 38.1 % Low 39.0-51.0 [facility] Comment on above: Order Comment: Speci men Type: BLOOD SPECIMENOrdering Facility: [facility] Address: [address] [place], [place] [address] Performed By: #### 5 8410-2 ####[facility] LABCLIA [id number] [place] [address] [place] Hemoglobin (Bld) [Mass/Vol] 12.5 g/dL Low 13.0-17.0 [facility] Comment on above: Order Comment: Speci men Type: BLOOD SPECIMENOrdering Facility: [facility] Address: [address] [place] [address] Performed By: #### 5 8410-2 ####[facility] LABIA [id number] [address] STATES [facility] MCH (RBC) [Entitic mass] 28.1 pg Normal 26.0-34.0 [facility] Comment on above: Order Comment: Speci men Type: BLOOD SPECIMENOrdering Facility: [facility] Address: [address] [place] [address] Performed By: #### 5 8410-2 ####[facility] LABIA [id number] [address] [place] MCHC (RBC) [Mass/Vol] 32.8 g/dL Normal 30.5-36.0 [facility] Comment on above: Order Comment: Speci men Type: BLOOD SPECIMENOrdering Facility: [facility] Address: [address] Performed By: #### 5 8410-2 ####[facility] LABIA [id number] [address] [place] MCV (RBC) [Entitic vol] 85.6 fL Normal 80.0-100.0 [facility] Comment on above: Order Comment: Speci men Type: BLOOD SPECIMENOrdering Facility: [facility] Address: [address] Performed By: #### 5 8410-2 ####[facility] LABIA [id number] [address] [place] Nucleated RBC (Bld) [#/Vol] 10*3/uL Normal <0.01 [facility] Comment on above: Order Comment: Speci men Type: BLOOD SPECIMENOrdering Facility: [facility] Address: [address] Performed By: #### 5 8410-2 ####[facility] LABCLIA [id number] [place] [address] [place] Platelet mean volume (Bld) [Entitic vol] 12.5 fL Normal 9.0-12.7 [facility] Comment on above: Order Comment: Speci men Type: BLOOD SPECIMENOrdering Facility: [facility] Address: [address] [place] [address] Performed By: #### 5 8410-2 ####[facility] LABIA [id number] [place] [address] [place] Platelets (Bld) [#/Vol] 121 10*3/uL Low 150-400 [facility] Comment on above: Order Comment: Speci men Type: BLOOD SPECIMENOrdering Facility: [facility] Address: [address] [place] [address] Result Comment: Resu lts checked and verified.No clot detected. Performed By: #### 5 8410-2 ####[facility] LABIA [id number] [place] [address] [place] RBC (Bld) [#/Vol] 4.45 10*6/uL Normal 4.20-6.00 [facility] Comment on above: Order Comment: Speci men Type: BLOOD SPECIMENOrdering Facility: [facility] Address: [address] [place], [place] [address] Performed By: #### 5 8410-2 ####[facility] LABCLIA [id number] [place] [address] [place] WBC (Bld) [#/Vol] 9.67 10*3/uL Normal 3.70-11.00 [facility] Comment on above: Order Comment: Speci men Type: BLOOD SPECIMENOrdering Facility: [facility] Address: [address] [place], [place] [address] Performed By: #### 5 8410-2 ####[facility] LABCLIA [id number] [address] [address] [place] CONSULTon 12-01-2022 CONSULT Normal [facility] ECG COMPLETEon 12-01-2022 ECG COMPLETE Normal [facility] HISTORY PHYSICALon HISTORY PHYSICAL Normal [facility] Magnesium SerPl-mCncon 12-01 Magnesium [Mass/Vol] 2.0 mg/dL Normal 1.7-2.3 [facility] Comment on above: Order Comment: Speci men Type: BLOOD SPECIMENOrdering Facility: [facility] Address: [address] [place], [place] [id number] Performed By: #### 2 4321-2, 2777-1, ####[facility] LABCLIA [id number] [address] [address] [place] NUTRITIONon 12-01-2022 NUTRITION Normal [facility] Phosphate SerPl-ncon 12-01 Phosphate [Mass/Vol] 2.3 mg/dL Low 2.7-4.8 [facility] Comment on above: Order Comment: Speci men Type: BLOOD SPECIMENOrdering Facility: [facility] Address: [address] [place] [address] Performed By: #### 2 4321-2, 2777-1, ####[facility] LABCLIA [id number] [place] [id number] [place] SEPSIS LACTATEon 12-01-2022 Lactate [Moles/Vol] 0.9 mmol/L Normal <=2.0 [facility] Comment on above: Order Comment: Speci men Type: BLOOD SPECIMENOrdering Facility: [facility] Address: [address] [place], [place] [address] Performed By: #### S LACT ####[facility] LABCLIA [id number] [address] [address] [place] THERAPY NTon 12-01-2022 THERAPY NT Normal [facility] US KIDNEY/BLADDERon 12-01-19 US KIDNEY/BLADDER Normal [facility] US LEG VEIN DVT [facility] LABo n 12-01-2022 US LEG VEIN DVT [facility] Normal [facility] Bacteria Bld Culton 11-30-19 Bacteria identified Cx Nom (Bld) CULTURE, BLOOD: No growth 5 days Normal [facility] Comment on above: Performed By: #### 6 00-7 ####[facility] LABCLIA [id number] [place] [address] [place] Basic metabolic 2000 panelon 11-30-2022 Anion gap [Moles/Vol] 9 mmol/L Normal 9-18 [facility] Comment on above: Order Comment: Speci men Type: BLOOD SPECIMENOrdering Facility: [facility] Address: [address] [place] [address] Performed By: #### 2 777-1, , ####[facility] LABCLIA [id number] [place] [address] [place] Calcium [Mass/Vol] 8.7 mg/dL Normal 8.5-10.2 [facility] Comment on above: Order Comment: Speci men Type: BLOOD SPECIMENOrdering Facility: [facility] Address: [address] [place] [address] Performed By: #### 2 777-1, , ####[facility] LABCLIA [id number] [place] [address] [place] Chloride [Moles/Vol] 106 mmol/L High 97-105 [facility] Comment on above: Order Comment: Speci men Type: BLOOD SPECIMENOrdering Facility: [facility] Address: [address] [place], [place] [address] Performed By: #### 2 777-1, 11306-8, ####[facility] LABCLIA [id number] [address] [address] [place] CO2 [Moles/Vol] 22 mmol/L Normal 22-30 [facility] Comment on above: Order Comment: Speci men Type: BLOOD SPECIMENOrdering Facility: [facility] Address: [address] [place] [address] Performed By: #### 2 777-1, 50432-7, ####[facility] LABCLIA [id number] [place] [address] [place] Creatinine [Mass/Vol] 0.96 mg/dL Normal 0.73-1.22 [facility] Comment on above: Order Comment: Princessi men Type: BLOOD SPECIMENOrdering Facility: [facility] Address: [address] [place] [address] Performed By: #### 2 777-1, 19575-6, ####[facility] [id number] [address] STATES [facility] ESTIMATED GLOMERULAR FILTRATION RATE 88 mL/min/1.73m??? Normal >=60 [facility] Comment on above: Order Comment: Chaz men Type: BLOOD SPECIMENOrdering Facility: [facility] Address: [address] [place] [address] Result Comment: Karina mated Glomerular Filtration Rate [...] actual GFR. Performed By: #### 2 777-1, 49188-7, ####[facility] LABIA [id number] [place] [address] [place] Glucose [Mass/Vol] 109 mg/dL High 74-99 [facility] Comment on above: Order Comment: Speci men Type: BLOOD SPECIMENOrdering Facility: [facility] Address: [address] [place] [id number] Result Comment: The [place] [employer] (ADA) provides guidance for cutoff [...] Standards of Medical Care in Diabetes 2016, [place] [employer]. Diabetes Care. 2016.39(Suppl 1). Performed By: #### 2 777-1, 34077-6, ####[facility] LABCLIA [id number] [place] [address] [place] Potassium [Moles/Vol] 4.3 mmol/L Normal 3.7-5.1 [facility] Comment on above: Order Comment: Speci men Type: BLOOD SPECIMENOrdering Facility: [facility] Address: [address] [place] [id number] Performed By: #### 2 777-1, , ####[facility] LABCLIA [id number] [place] [address] [place] Sodium [Moles/Vol] 137 mmol/L Normal 136-144 [facility] Comment on above: Order Comment: Speci men Type: BLOOD SPECIMENOrdering Facility: [facility] Address: [address] [place] [id number] Performed By: #### 2 777-1, , ####[facility] LABCLIA [id number] [place] [address] [place] Urea nitrogen [Mass/Vol] 36 mg/dL High 9-24 [facility] Comment on above: Order Comment: Speci men Type: BLOOD SPECIMENOrdering Facility: [facility] Address: [address] [place] [address] Performed By: #### 2 777-1, 95512-4, 31949-4 ####[facility] LABCLIA [id number] [place] [address] [place] CBC panel Auto (Bld)on 11-30 Erythrocyte distribution width (RBC) [Ratio] 17.2 % High 11.5-15.0 [facility] Comment on above: Order Comment: Speci men Type: BLOOD SPECIMENOrdering Facility: [facility] Address: [address] [place] [address] Performed By: #### 5 8410-2 ####[facility] LABIA [id number] [address] [place] Hematocrit (Bld) [Volume fraction] 36.4 % Low 39.0-51.0 [facility] Comment on above: Order Comment: Speci men Type: BLOOD SPECIMENOrdering Facility: [facility] Address: [address] [place] [address] Performed By: #### 5 8410-2 ####[facility] LABIA [id number] [address] [place] Hemoglobin (Bld) [Mass/Vol] 11.7 g/dL Low 13.0-17.0 [facility] Comment on above: Order Comment: Speci men Type: BLOOD SPECIMENOrdering Facility: [facility] Address: [address] [place] [address] Performed By: #### 5 8410-2 ####[facility] LABIA [id number] [place] [address] [place] MCH (RBC) [Entitic mass] 27.9 pg Normal 26.0-34.0 [facility] Comment on above: Order Comment: Speci men Type: BLOOD SPECIMENOrdering Facility: [facility] Address: [address] Performed By: #### 5 8410-2 ####[facility] LABCLIA [id number] [address] STATES [facility] MCHC (RBC) [Mass/Vol] 32.1 g/dL Normal 30.5-36.0 [facility] Comment on above: Order Comment: Speci men Type: BLOOD SPECIMENOrdering Facility: [facility] [facility] Address: [address] [place] [address] Performed By: #### 5 8410-2 ####[facility] LABCLIA [id number] [place] [address] [place] MCV (RBC) [Entitic vol] 86.9 fL Normal 80.0-100.0 [facility] Comment on above: Order Comment: Speci men Type: BLOOD SPECIMENOrdering Facility: [facility] Address: [address] [place] [address] Performed By: #### 5 8410-2 ####[facility] LABIA [id number] [place] [address] [place] Nucleated RBC (Bld) [#/Vol] 10*3/uL Normal <0.01 [facility] Comment on above: Order Comment: Speci men Type: BLOOD SPECIMENOrdering Facility: [facility] Address: [address] [place], [place] [address] Performed By: #### 5 8410-2 ####[facility] LABCLIA [id number] [place] [address] [place] Platelet mean volume (Bld) [Entitic vol] Normal [facility] Comment on above: Order Comment: Speci men Type: BLOOD SPECIMENOrdering Facility: [facility] Address: [address] [place] [address] Result Comment: Unab le to Report. Performed By: #### 5 8410-2 ####[facility] LABCLIA [id number] [place] [address] [place] Platelets (Bld) [#/Vol] 103 10*3/uL Low 150-400 [facility] Comment on above: Order Comment: Speci men Type: BLOOD SPECIMENOrdering Facility: [facility] Address: [address] [place] [address] Result Comment: No c lot detected.Results checked and verified. Performed By: #### 5 8410-2 ####[facility] [id number] [place] [address] [place] RBC (Bld) [#/Vol] 4.19 10*6/uL Low 4.20-6.00 [facility] Comment on above: Order Comment: Speci men Type: BLOOD SPECIMENOrdering Facility: [facility] Address: [address] [place] [address] Performed By: #### 5 8410-2 ####[facility] [id number] [place] [address] [place] WBC (Bld) [#/Vol] 9.45 10*3/uL Normal 3.70-11.00 [facility] Comment on above: Order Comment: Speci men Type: BLOOD SPECIMENOrdering Facility: [facility] Address: [address] [place] [address] Performed By: #### 5 8410-2 ####[facility] [id number] [place] [address] [place] ECG COMPLETEon 11-30-2022 ECG COMPLETE Normal [facility] Magnesium SerPl-mCncon 11-30 Magnesium [Mass/Vol] 2.1 mg/dL Normal 1.7-2.3 [facility] Comment on above: Order Comment: Speci men Type: BLOOD SPECIMENOrdering Facility: [facility] Address: [address] [place] [address] Performed By: #### 2 777-1, 18326-6, ####[facility] LABCLIA [id number] [place] [id number] [place] Phosphate SerPl-mCncon 11-30 Phosphate [Mass/Vol] 2.8 mg/dL Normal 2.7-4.8 [facility] Comment on above: Order Comment: Speci men Type: BLOOD SPECIMENOrdering Facility: [facility] Address: [address] [place] [address] Performed By: #### 2 777-1, 86446-5, ####[facility] LABIA [id number] [place] [address] [place] Ammonia Plas-sCncon 11-29-19 23 Ammonia (P) [Moles/Vol] 22 umol/L Normal 16-60 [facility] Comment on above: Order Comment: Speci men Type: BLOOD SPECIMENOrdering Facility: [facility] Address: [address] [place] [address] Result Comment: Resu lt may be falsely increased due to the fact that the sample was not received on ice. Performed By: #### 1 6362-6 ####[facility] LABIA [id number] [place] [address] [place] Basic metabolic 2000 panelon 11-29-2022 Anion gap [Moles/Vol] 7 mmol/L Low 9-18 [facility] Comment on above: Order Comment: Speci men Type: BLOOD SPECIMENOrdering Facility: [facility] Address: [address] [place] [address] Performed By: #### 1 9123-9, 2157-6, LIPNF, 54538-6, 3016-3, 2777-1, 3024-7 ####[facility] LABCLIA [id number] [place] [id number] [place] Calcium [Mass/Vol] 8.7 mg/dL Normal 8.5-10.2 [facility] Comment on above: Order Comment: Speci men Type: BLOOD SPECIMENOrdering Facility: [facility] Address: [address] [place] [address] Performed By: #### 1 9123-9, 2156-6, LIPNF, 89909-5, 3016-3, 2777-1, 7 ####[facility] LABCLIA [id number] [place] [address] [place] Chloride [Moles/Vol] 111 mmol/L High 97-105 [facility] Comment on above: Order Comment: Speci men Type: BLOOD SPECIMENOrdering Facility: [facility] Address: [address] [place] [address] Performed By: #### 1 91-9, 6, LIPNF, 42825-7, 3016-3, 2776-1, 3024-04 ####[facility] LABCLIA [id number] [place] [address] [place] CO2 [Moles/Vol] 23 mmol/L Normal 22-30 [facility] Comment on above: Order Comment: Speci men Type: BLOOD SPECIMENOrdering Facility: [facility] Address: [address] [place] [address] Performed By: #### 1 9123-9, 6, LIPNF, 15128-3, 3016-3, 277-1, 3024-04 ####[facility] LABCLIA [id number] [place] [address] [place] Creatinine [Mass/Vol] 1.08 mg/dL Normal 0.73-1.22 [facility] Comment on above: Order Comment: Speci men Type: BLOOD SPECIMENOrdering Facility: [facility] Address: [address] [place] [address] Performed By: #### 1 9123-9, 2156-6, LIPNF, 20470-3, 3016-3, 2777-1, 3024-04 ####[facility] LABCLIA [id number] [place] [address] [place] ESTIMATED GLOMERULAR FILTRATION RATE 77 mL/min/1.73m??? Normal >=60 [facility] Comment on above: Order Comment: Chaz trevizo Type: BLOOD SPECIMENOrdering Facility: [facility] Address: [address] [place] [address] Result Comment: Karina mated Glomerular Filtration Rate [...] Performed By: #### 1 9123-9, 2157-6, LIPNF, 59150-3, 3016-3, 2777-1, 3024-7 ####[facility] LABIA [id number] [place] [address] [place] Glucose [Mass/Vol] 94 mg/dL Normal 74-99 [facility] Comment on above: Order Comment: Chaz trevizo Type: BLOOD SPECIMENOrdering Facility: [facility] Address: [address] [place] [address] Result Comment: The [place] [employer] Association (ADA) provides guidance for cutoff [...] Standards of Medical Care in Diabetes 2016, [place] [employer]. Diabetes Care. 2016.39(Suppl 1). Performed By: #### 1 9123-9, 2157-6, LIPNF, 62462-1, 3016-3, 2777-1, 3024-7 ####[facility] LABCLIA [id number] [place] [id number] [place] Potassium [Moles/Vol] 4.2 mmol/L Normal 3.7-5.1 [facility] Comment on above: Order Comment: Speci men Type: BLOOD SPECIMENOrdering Facility: [facility] Address: [address] [place] [address] Performed By: #### 1 9123-9, 2156-6, LIPNF, 19665-7, 6-3, 2776-1, 7 ####[facility] LABCLIA [id number] [place] [address] [place] Sodium [Moles/Vol] 141 mmol/L Normal 136-144 [facility] Comment on above: Order Comment: Speci men Type: BLOOD SPECIMENOrdering Facility: [facility] Address: [address] [place] [address] Performed By: #### 1 9123-9, 6, LIPNF, 28733-4, 3015-3, 2776-, 3024-04 ####[facility] LABCLIA [id number] [place] [address] [place] Urea nitrogen [Mass/Vol] 38 mg/dL High 9-24 [facility] Comment on above: Order Comment: Speci men Type: BLOOD SPECIMENOrdering Facility: [facility] Address: [address] [place] [address] Performed By: #### 1 9123-9, 2156-6, LIPNF, 61113-4, 6-3, 2776-1, 7 ####[facility] LABCLIA [id number] [place] [id number] [place] CBC panel Auto (Bld)on 11-29 Erythrocyte distribution width (RBC) [Ratio] 17.2 % High 11.5-15.0 [facility] Comment on above: Order Comment: Speci men Type: BLOOD SPECIMENOrdering Facility: [facility] Address: [address] Performed By: #### 5 8410-2 ####[facility] LABIA [id number] [address] [place] Hematocrit (Bld) [Volume fraction] 33.5 % Low 39.0-51.0 [facility] Comment on above: Order Comment: Speci men Type: BLOOD SPECIMENOrdering Facility: [facility] Address: [address] Performed By: #### 5 8410-2 ####[facility] LABIA [id number] [address] [place] Hemoglobin (Bld) [Mass/Vol] 11.1 g/dL Low 13.0-17.0 [facility] Comment on above: Order Comment: Speci men Type: BLOOD SPECIMENOrdering Facility: [facility] Address: [address] Performed By: #### 5 8410-2 ####[facility] LABIA [id number] [address] [place] MCH (RBC) [Entitic mass] 27.8 pg Normal 26.0-34.0 [facility] Comment on above: Order Comment: Speci men Type: BLOOD SPECIMENOrdering Facility: [facility] Address: [address] Performed By: #### 5 8410-2 ####[facility] LABIA [id number] [address] [place] MCHC (RBC) [Mass/Vol] 33.1 g/dL Normal 30.5-36.0 [facility] Comment on above: Order Comment: Speci men Type: BLOOD SPECIMENOrdering Facility: [facility] Address: [address] Performed By: #### 5 8410-2 ####[facility] LABIA [id number] [address] [place] MCV (RBC) [Entitic vol] 83.8 fL Normal 80.0-100.0 [facility] Comment on above: Order Comment: Speci men Type: BLOOD SPECIMENOrdering Facility: [facility] Address: [address] [place], [place] [address] Performed By: #### 5 8410-2 ####[facility] LABIA [id number] [place] [address] [place] Nucleated RBC (Bld) [#/Vol] 10*3/uL Normal <0.01 [facility] Comment on above: Order Comment: Speci men Type: BLOOD SPECIMENOrdering Facility: [facility] Address: [address] [place], [place] [address] Performed By: #### 5 8410-2 ####[facility] LABIA [id number] [place] [address] [place] Platelet mean volume (Bld) [Entitic vol] 12.8 fL High 9.0-12.7 [facility] Comment on above: Order Comment: Speci men Type: BLOOD SPECIMENOrdering Facility: [facility] Address: [address] [place], [place] [address] Performed By: #### 5 8410-2 ####[facility] LABIA [id number] [place] [address] [place] Platelets (Bld) [#/Vol] 101 10*3/uL Low 150-400 [facility] Comment on above: Order Comment: Speci men Type: BLOOD SPECIMENOrdering Facility: [facility] Address: [address] [place], [place] [address] Result Comment: Resu lts checked and verified.No clot detected. Performed By: #### 5 8410-2 ####[facility] LABCLIA [id number] [place] [address] [place] RBC (Bld) [#/Vol] 4.00 10*6/uL Low 4.20-6.00 [facility] Comment on above: Order Comment: Speci men Type: BLOOD SPECIMENOrdering Facility: [facility] Address: [address] [place] [address] Performed By: #### 5 8410-2 ####[facility] LABCLIA [id number] [place] [address] [place] WBC (Bld) [#/Vol] 11.59 10*3/uL High 3.70-11.00 [facility] Comment on above: Order Comment: Speci men Type: BLOOD SPECIMENOrdering Facility: [facility] Address: [address] [place] [address] Performed By: #### 5 8410-2 ####[facility] LABCLIA [id number] [place] [address] [place] CK SerPl-cCncon 11-29-2022 CK [Catalytic activity/Vol] 21 U/L Low 51-298 [facility] Comment on above: Order Comment: Speci men Type: BLOOD SPECIMENOrdering Facility: [facility] Address: [address] [place] [address] Performed By: #### 1 9123-9, 2157-6, LIPNF, 39648-4, 3016-3, 2777-1, 3024-7 ####[facility] LABCLIA [id number] [place] [address] [place] BRAIN WO IVCONon 11-29-19 CT BRAIN WO IVCON Normal [facility] ECG COMPLETEon 11-29-2022 ECG COMPLETE Normal [facility] Gas and Carbon monoxide pane l (BldV)on 11-29-2022 BASE DEFICIT, VENOUS -2 mmol/L Normal -2-0 [facility] Comment on above: Order Comment: Speci men Type: VENOUS BLOOD SPECIMENOrdering Facility: [facility] Address: [address] [place] [address] Performed By: #### 2 4344-4 ####[facility] LABIA [id number] [place] [address] [place] Body temperature 98.6 [degF] Normal [facility] Comment on above: Order Comment: Speci men Type: VENOUS BLOOD SPECIMENOrdering Facility: [facility] Address: [address] [place] [address] Performed By: #### 2 4344-4 ####[facility] [id number] [place] [address] [place] Calcium.ionized (Bld) [Mass/Vol] 1.22 mmol/L Normal 1.08-1.30 [facility] Comment on above: Order Comment: Speci men Type: VENOUS BLOOD SPECIMENOrdering Facility: [facility] Address: [address] [place] [address] Performed By: #### 2 4344-4 ####[facility] [id number] [place] [address] [place] Calcium.ionized adjusted to pH 7.4 (BldA) [Moles/Vol] 1.21 mmol/L Normal 1.08-1.30 [facility] Comment on above: Order Comment: Speci men Type: VENOUS BLOOD SPECIMENOrdering Facility: [facility] Address: [address] Performed By: #### 2 4344-4 ####[facility] [id number] [place] [address] [place] Carboxyhemoglobin (BldV) [Mass fraction] 0.4 % Normal 0.0-2.0 [facility] Comment on above: Order Comment: Speci men Type: VENOUS BLOOD SPECIMENOrdering Facility: [facility] Address: [address] Result Comment: Carb oxyhemoglobin Reference Range for Smokers: 2.0-8.0% Performed By: #### 2 4344-4 ####[facility] LABCLIA [id number] [place] [address] [place] CO2 (BldV) [Partial pressure] 39 mm[Hg] Low 42-55 [facility] Comment on above: Order Comment: Speci men Type: VENOUS BLOOD SPECIMENOrdering Facility: [facility] Address: [address] Performed By: #### 2 4344-4 ####[facility] LABCLIA [id number] [place] [address] [place] CO2 [Moles/Vol] 23 mmol/L Low 25-29 [facility] Comment on above: Order Comment: Speci men Type: VENOUS BLOOD SPECIMENOrdering Facility: [facility] Address: [address] Performed By: #### 2 4344-4 ####[facility] LABCLIA [id number] [place] [address] [place] Glucose [Mass/Vol] 155 mg/dL High 60-105 [facility] Comment on above: Order Comment: Speci men Type: VENOUS BLOOD SPECIMENOrdering Facility: [facility] Address: [address] Performed By: #### 2 4344-4 ####[facility] LABCLIA [id number] [place] [address] [place] HCO3 (Bld) [Moles/Vol] 22 mmol/L Low 24-28 [facility] Comment on above: Order Comment: Speci men Type: VENOUS BLOOD SPECIMENOrdering Facility: [facility] Address: [address] Performed By: #### 2 4344-4 ####[facility] LABCLIA [id number] [place] [address] [place] Hematocrit (Bld) [Volume fraction] 36.7 % Low 39.0-51.0 [facility] Comment on above: Order Comment: Speci men Type: VENOUS BLOOD SPECIMENOrdering Facility: [facility] Address: [address] [place] [address] Performed By: #### 2 4344-4 ####[facility] LABCLIA [id number] [place] [address] [place] Hemoglobin (Bld) [Mass/Vol] 11.9 g/dL Low 13.0-17.0 [facility] Comment on above: Order Comment: Speci men Type: VENOUS BLOOD SPECIMENOrdering Facility: [facility] Address: [address] [place] [address] Performed By: #### 2 4344-4 ####[facility] LABCLIA [id number] [place] [address] [place] Lactate [Moles/Vol] 1.9 mmol/L Normal 0.5-2.2 [facility] Comment on above: Order Comment: Speci men Type: VENOUS BLOOD SPECIMENOrdering Facility: [facility] Address: [address] [place] [address] Performed By: #### 2 4344-4 ####[facility] LABCLIA [id number] [place] [address] [place] LITERS 2 Liters/min Normal [facility] Comment on above: Order Comment: Speci men Type: VENOUS BLOOD SPECIMENOrdering Facility: [facility] Address: [address] [place], [place] [address] Performed By: #### 2 4344-4 ####[facility] LABCLIA [id number] [place] [address] [place] Methemoglobin (Bld) [Mass fraction] 1.6 % High 0.0-1.5 [facility] Comment on above: Order Comment: Speci men Type: VENOUS BLOOD SPECIMENOrdering Facility: [facility] Address: [address] [place] [address] Performed By: #### 2 4344-4 ####[facility] LABCLIA [id number] [place] [address] [place] O2 THERAPY NC = Nasal Cannula Normal [facility] Comment on above: Order Comment: Speci men Type: VENOUS BLOOD SPECIMENOrdering Facility: [facility] Address: [address] [place] [address] Performed By: #### 2 4344-4 ####[facility] LABCLIA [id number] [place] [address] [place] Oxygen (BldV) [Partial pressure] 104 mm[Hg] High 35-45 [facility] Comment on above: Order Comment: Speci men Type: VENOUS BLOOD SPECIMENOrdering Facility: [facility] Address: [address] [place] [address] Performed By: #### 2 4344-4 ####[facility] LABCLIA [id number] [place] [address] [place] Oxygen saturation in Venous blood 97 % High 60-85 [facility] Comment on above: Order Comment: Speci men Type: VENOUS BLOOD SPECIMENOrdering Facility: [facility] Address: [address] [place] [address] Performed By: #### 2 4344-4 ####[facility] LABCLIA [id number] [place] [id number] [place] Oxyhemoglobin (BldV) [Mass fraction] 95 % High 60-85 [facility] Comment on above: Order Comment: Speci men Type: VENOUS BLOOD SPECIMENOrdering Facility: [facility] Address: [address] [place] [address] Performed By: #### 2 4344-4 ####[facility] LABCLIA [id number] [place] [id number] [place] pH (BldV) 7.37 [pH] Normal 7.32-7.42 [facility] Comment on above: Order Comment: Speci men Type: VENOUS BLOOD SPECIMENOrdering Facility: [facility] Address: [address] [place] [address] Performed By: #### 2 4344-4 ####[facility] LABCLIA [id number] [place] [address] [place] Potassium [Moles/Vol] 4.1 mmol/L Normal 3.5-5.0 [facility] Comment on above: Order Comment: Speci men Type: VENOUS BLOOD SPECIMENOrdering Facility: [facility] Address: [address] [place] [address] Performed By: #### 2 4344-4 ####[facility] LABCLIA [id number] [place] [address] [place] Sodium [Moles/Vol] 135 mmol/L Low 136-144 [facility] Comment on above: Order Comment: Speci men Type: VENOUS BLOOD SPECIMENOrdering Facility: [facility] Address: [address] [place] [address] Performed By: #### 2 4344-4 ####[facility] LABCLIA [id number] [place] [address] [place] LIPID PANEL, NONFASTINGon Cholesterol [Mass/Vol] 79 mg/dL Normal <200 [facility] Comment on above: Order Comment: Speci men Type: BLOOD SPECIMENOrdering Facility: [facility] Address: [address] [place] [address] Result Comment: <200 mg/dL, Desirable 200-239 mg/dL, Borderline high>239 mg/dL, High Performed By: #### 1 9123-9, 2157-6, LIPNF, 32411-1, 3016-3, 2777-1, 3024-7 ####[facility] LABCLIA [id number] [address] HDL CHOLESTEROL, NF 15 mg/dL Low >39 [facility] Comment on above: Order Comment: Princessi men Type: BLOOD SPECIMENOrdering Facility: [facility] Address: [address] [place] [address] Result Comment: 40-5 9 mg/dL, Acceptable>59 mg/dL, High: Negative risk factor for coronary heart disease<40 mg/dL, Low: Positive risk factor for coronary heart disease Performed By: #### 1 9123-9, 2157-6, LIPNF, 76205-6, 3016-3, 2777-1, 3024-7 ####[facility] LABCLIA [id number] [address] LDL CHOLESTEROL, NF 41 mg/dL Normal <100 [facility] Comment on above: Order Comment: Chaz joseline Type: BLOOD SPECIMENOrdering Facility: [facility] Address: [address] [place] [address] Result Comment: <100 mg/dL, Optimal 100-129 mg/dL, Near optimal/above optimal 130-159 mg/dL, Borderline high 160-189 mg/dL, High>189 mg/dL, Very highSecondary prevention optimal LDL Cholesterol levels are recommended to be < 70 mg/dL Performed By: #### 1 9123-9, 7-6, LIPNF, 55635-8, 3016-3, 2777-1, 3024-7 ####[facility] LABIA [id number] [address] [facility] LDL/HDL RATIO, NF 2.73 mg/dL High <2.54 [facility] Comment on above: Order Comment: Chaz trevizo Type: BLOOD SPECIMENOrdering Facility: [facility] Address: [address] [place] [address] Result Comment: Refe rence:1. National Cholesterol Education Program ATP III Guideline At-A-Glance Quick Desk Reference: National Heart, Lung, and Blood [place]. National Institutes of Health. 2001: NIH Publication No. 01-3305.2. An International Atherosclerosis Society position paper: global recommendations for the management of dyslipidemia: executive summary, Atherosclerosis. 2014: 232(2):410-413. Performed By: #### 1 9123-9, 2157-6, LIPNF, 66912-2, 3016-3, 2777-1, 3024-7 ####[facility] LABCLIA [id number] [address] [address] [place] NON HDL CHOL, NF 64 mg/dL Normal <130 [facility] Comment on above: Order Comment: Speci men Type: BLOOD SPECIMENOrdering Facility: [facility] Address: [address] [place] [address] Result Comment: <130 mg/dL, Optimal 130-159 mg/dL, Near optimal/above optimal 160-189 mg/dL, Borderline high 190-219 mg/dL, High>219 mg/dL, Very highSecondary prevention optimal non HDL Cholesterol levels are recommended to be <100 mg/dL Performed By: #### 1 9123-9, 2156-6, LIPNF, 68791-5, 3016-3, 2777-1, 3024-7 ####[facility] LABCLIA [id number] [address] [address] [place] T CHOL/HDL RATIO NF 5.27 mg/dL High <5.10 [facility] Comment on above: Order Comment: Speci men Type: BLOOD SPECIMENOrdering Facility: [facility] Address: [address] [address] Performed By: #### 1 9123-9, 2156-6, LIPNF, 37169-5, 3016-3, 2777-1, 3024-7 ####[facility] LABCLIA [id number] [address] [address] [place] TRIGLYCERIDES, NF 117 mg/dL Normal <150 [facility] Comment on above: Order Comment: Speci men Type: BLOOD SPECIMENOrdering Facility: [facility] Address: [address] [place], [place] [address] Result Comment: <150 mg/dL, Normal 150-199 mg/dL, Borderline high 200-499 mg/dL, High>499 mg/dL, Very high Performed By: #### 1 9123-9, 6, LIPNF, 42591-6, 3016-3, 2777-1, 3024-7 ####[facility] LABCLIA [id number] [place] [address] [place] VLDL CHOLESTEROL, NF 23 mg/dL Normal <30 [facility] Comment on above: Order Comment: Speci men Type: BLOOD SPECIMENOrdering Facility: [facility] Address: [address] [place] [address] Performed By: #### 1 9123-9, 2157-03, LIPNF, 86852-0, 6-3, 2776-1, 3023-7 ####[facility] LABCLIA [id number] [place] [address] [place] Magnesium SerPl-mCncon 11-29 Magnesium [Mass/Vol] 2.3 mg/dL Normal 1.7-2.3 [facility] Comment on above: Order Comment: Speci men Type: BLOOD SPECIMENOrdering Facility: [facility] Address: [address] [place], [place] [address] Performed By: #### 1 9123-9, 2157-03, LIPNF, 94975-0, 3015-3, 2776-1, 302-7 ####[facility] LABCLIA [id number] [place] [id number] [place] Phosphate SerPl-mCncon 11-29 Phosphate [Mass/Vol] 2.6 mg/dL Low 2.7-4.8 [facility] Comment on above: Order Comment: Speci men Type: BLOOD SPECIMENOrdering Facility: [facility] Address: [address] [place], [place] [address] Performed By: #### 1 9123-9, 2157-6, LIPNF, 80346-8, 3016-3, 2777-1, 3024-7 ####[facility] LABCLIA [id number] [place] [address] [place] T4 Free SerPl-mCncon 023 Free T4 [Mass/Vol] 0.6 ng/dL Low 0.9-1.7 [facility] Comment on above: Order Comment: Speci men Type: BLOOD SPECIMENOrdering Facility: [facility] Address: [address] [address] Performed By: #### 1 23-9, 6, LIPNF, 98896-1, 3016-3, 2777-1, 3024-7 ####[facility] LABCLIA [id number] [address] [place] TSH SerPl-aCncon 11-29-2022 TSH Qn 0.221 m[IU]/L Low 0.270-4.20 0 [facility] Comment on above: Order Comment: Speci men Type: BLOOD SPECIMENOrdering Facility: [facility] Address: [address] [place] [address] Performed By: #### 1 23-9, 6, LIPNF, 53747-4, 3016-3, 2777-1, 3024-7 ####[facility] LABIA [id number] [place] [address] [place] Basic metabolic 2000 panelon 11-28-2022 Anion gap [Moles/Vol] 10 mmol/L Normal 9-18 [facility] Comment on above: Order Comment: Speci men Type: BLOOD SPECIMENOrdering Facility: [facility] Address: [address] [place] [address] Performed By: #### 2 4321-2, 2777-1, 68741-0 ####[facility] LABCLIA [id number] [id number] [address] [place] Calcium [Mass/Vol] 8.6 mg/dL Normal 8.5-10.2 [facility] Comment on above: Order Comment: Speci men Type: BLOOD SPECIMENOrdering Facility: [facility] Address: [address] [place], [place] [address] Performed By: #### 2 4321-2, 2776-, ####[facility] LABCLIA [id number] [place] [address] [place] Chloride [Moles/Vol] 109 mmol/L High 97-105 [facility] Comment on above: Order Comment: Speci men Type: BLOOD SPECIMENOrdering Facility: [facility] Address: [address] [place] [address] Performed By: #### 2 4321-2, 2776-10, ####[facility] LABCLIA [id number] [place] [address] [place] CO2 [Moles/Vol] 21 mmol/L Low 22-30 [facility] Comment on above: Order Comment: Speci men Type: BLOOD SPECIMENOrdering Facility: [facility] Address: [address] [place], [place] [address] Performed By: #### 2 4321-2, 2776-10, ####[facility] LABCLIA [id number] [place] [address] [place] Creatinine [Mass/Vol] 1.31 mg/dL High 0.73-1.22 [facility] Comment on above: Order Comment: Speci men Type: BLOOD SPECIMENOrdering Facility: [facility] Address: [address] [place], [place] [address] Performed By: #### 2 4321-2, 2776-, ####[facility] LABCLIA [id number] [place] [id number] [place] ESTIMATED GLOMERULAR FILTRATION RATE 61 mL/min/1.73m??? Normal >=60 [facility] Comment on above: Order Comment: Chaz trevizo Type: BLOOD SPECIMENOrdering Facility: [facility] Address: [address] [place], [place] [address] Result Comment: Karina mated Glomerular Filtration Rate [...] GFR. Performed By: #### 2 4321-2, 2777-, ####[facility] [id number] [place] [address] [place] Glucose [Mass/Vol] 113 mg/dL High 74-99 [facility] Comment on above: Order Comment: Chaz trevizo Type: BLOOD SPECIMENOrdering Facility: [facility] Address: [address] [place] [address] Result Comment: The [place] [employer] (ADA) provides guidance for cutoff [...] Standards of Medical Care in Diabetes 2016, [employer]. Diabetes Care. 2016.39(Suppl 1). Performed By: #### 2 4321-2, 2777-, ####[facility] LABIA [id number] [place] [id number] [place] Potassium [Moles/Vol] 4.9 mmol/L Normal 3.7-5.1 [facility] Comment on above: Order Comment: Speci men Type: BLOOD SPECIMENOrdering Facility: [facility] Address: [address] Performed By: #### 2 4321-2, 2776-10, ####[facility] LABCLIA [id number] [place] [address] [place] Sodium [Moles/Vol] 140 mmol/L Normal 136-144 [facility] Comment on above: Order Comment: Speci men Type: BLOOD SPECIMENOrdering Facility: [facility] Address: [address] [place] [address] Performed By: #### 2 4321-2, 2776-10, ####[facility] LABCLIA [id number] [place] [address] [place] Urea nitrogen [Mass/Vol] 38 mg/dL High 9-24 [facility] Comment on above: Order Comment: Speci men Type: BLOOD SPECIMENOrdering Facility: [facility] Address: [address] [place] [address] Performed By: #### 2 4321-2, 2776-10, ####[facility] LABCLIA [id number] [place] [address] [place] CBC panel Auto (Bld)on 11-28 Erythrocyte distribution width (RBC) [Ratio] 17.4 % High 11.5-15.0 [facility] Comment on above: Order Comment: Speci men Type: BLOOD SPECIMENOrdering Facility: [facility] Address: [address] [place] [address] Performed By: #### 5 8410-2 ####[facility] LABCLIA [id number] [place] [address] [place] Hematocrit (Bld) [Volume fraction] 33.3 % Low 39.0-51.0 [facility] Comment on above: Order Comment: Speci men Type: BLOOD SPECIMENOrdering Facility: [facility] Address: [address] Performed By: #### 5 8410-2 ####[facility] [id number] [address] [place] Hemoglobin (Bld) [Mass/Vol] 10.8 g/dL Low 13.0-17.0 [facility] Comment on above: Order Comment: Speci men Type: BLOOD SPECIMENOrdering Facility: [facility] Address: [address] [place] [address] Performed By: #### 5 8410-2 ####[facility] [id number] [address] [place] MCH (RBC) [Entitic mass] 28.1 pg Normal 26.0-34.0 [facility] Comment on above: Order Comment: Speci men Type: BLOOD SPECIMENOrdering Facility: [facility] Address: [address] [place], [place] [address] Performed By: #### 5 8410-2 ####[facility] [id number] [address] [place] MCHC (RBC) [Mass/Vol] 32.4 g/dL Normal 30.5-36.0 [facility] Comment on above: Order Comment: Speci men Type: BLOOD SPECIMENOrdering Facility: [facility] Address: [address] [place], [place] [address] Performed By: #### 5 8410-2 ####[facility] [id number] [place] [address] [place] MCV (RBC) [Entitic vol] 86.5 fL Normal 80.0-100.0 [facility] Comment on above: Order Comment: Speci men Type: BLOOD SPECIMENOrdering Facility: [facility] Address: [address] [place], [place] [address] Performed By: #### 5 8410-2 ####[facility] LABIA [id number] [place] [address] [place] Nucleated RBC (Bld) [#/Vol] 10*3/uL Normal <0.01 [facility] Comment on above: Order Comment: Speci men Type: BLOOD SPECIMENOrdering Facility: [facility] Address: [address] [place] [address] Performed By: #### 5 8410-2 ####[facility] [id number] [place] [address] [place] Platelet mean volume (Bld) [Entitic vol] 13.2 fL High 9.0-12.7 [facility] Comment on above: Order Comment: Speci men Type: BLOOD SPECIMENOrdering Facility: [facility] Address: [address] [place] [address] Performed By: #### 5 8410-2 ####[facility] [id number] [place] [address] [place] Platelets (Bld) [#/Vol] 76 10*3/uL Low 150-400 [facility] Comment on above: Order Comment: Speci men Type: BLOOD SPECIMENOrdering Facility: [facility] Address: [address] [place] [address] Result Comment: Resu lts checked and verified.No clot detected. Performed By: #### 5 8410-2 ####[facility] [id number] [place] [address] [place] RBC (Bld) [#/Vol] 3.85 10*6/uL Low 4.20-6.00 [facility] Comment on above: Order Comment: Speci men Type: BLOOD SPECIMENOrdering Facility: [facility] Address: [address] [place] [address] Performed By: #### 5 8410-2 ####[facility] LABIA [id number] [place] [address] [place] WBC (Bld) [#/Vol] 10.98 10*3/uL Normal 3.70-11.00 [facility] Comment on above: Order Comment: Speci men Type: BLOOD SPECIMENOrdering Facility: [facility] Address: [address] [place] [address] Performed By: #### 5 8410-2 ####[facility] LABCLIA [id number] [place] [id number] [place] CONSULTon 11-28-2022 CONSULT Normal [facility] Magnesium SerPl-mCncon 11-28 Magnesium [Mass/Vol] 2.1 mg/dL Normal 1.7-2.3 [facility] Comment on above: Order Comment: Speci men Type: BLOOD SPECIMENOrdering Facility: [facility] Address: [address] [place] [address] Performed By: #### 2 4321-2, 2777-1, ####[facility] LABCLIA [id number] [place] [address] [place] Phosphate SerPl-mCncon 11-28 Phosphate [Mass/Vol] 3.4 mg/dL Normal 2.7-4.8 [facility] Comment on above: Order Comment: Speci men Type: BLOOD SPECIMENOrdering Facility: [facility] Address: [address] [place], [place] [address] Performed By: #### 2 4321-2, 2777-, ####[facility] LABIA [id number] [place] [id number] [place] THERAPY NTon 11-28-2022 THERAPY NT Normal [facility] Basic metabolic 2000 panelon 11-27-2022 Anion gap [Moles/Vol] 13 mmol/L Normal 9-18 [facility] Comment on above: Order Comment: Speci men Type: BLOOD SPECIMENOrdering Facility: [facility] Address: [address] [place] [address] Performed By: #### 2 4321-2 ####[facility] LABCLIA [id number] [place] [address] [place] Calcium [Mass/Vol] 8.3 mg/dL Low 8.5-10.2 [facility] Comment on above: Order Comment: Speci men Type: BLOOD SPECIMENOrdering Facility: [facility] Address: [address] Performed By: #### 2 4321-2 ####[facility] LABCLIA [id number] [place] [address] [place] Chloride [Moles/Vol] 109 mmol/L High 97-105 [facility] Comment on above: Order Comment: Speci men Type: BLOOD SPECIMENOrdering Facility: [facility] Address: [address] [place], [place] [address] Performed By: #### 2 4321-2 ####[facility] LABCLIA [id number] [place] [address] [place] CO2 [Moles/Vol] 18 mmol/L Low 22-30 [facility] Comment on above: Order Comment: Speci men Type: BLOOD SPECIMENOrdering Facility: [facility] Address: [address] [place], [place] [address] Performed By: #### 2 4321-2 ####[facility] LABCLIA [id number] [place] [address] [place] Creatinine [Mass/Vol] 1.52 mg/dL High 0.73-1.22 [facility] Comment on above: Order Comment: Speci men Type: BLOOD SPECIMENOrdering Facility: [facility] Address: [address] [place], [place] [address] Performed By: #### 2 4321-2 ####[facility] LABCLIA [id number] [place] [address] [place] ESTIMATED GLOMERULAR FILTRATION RATE 51 mL/min/1.73m??? Low >=60 [facility] Comment on above: Order Comment: Chaz trevizo Type: BLOOD SPECIMENOrdering Facility: [facility] Address: [address] [place] [address] Result Comment: Karina mated Glomerular Filtration Rate [...] actual GFR. Performed By: #### 2 4321-2 ####[facility] LABIA [id number] [place] [address] [place] Glucose [Mass/Vol] 154 mg/dL High 74-99 [facility] Comment on above: Order Comment: Chaz trevizo Type: BLOOD SPECIMENOrdering Facility: [facility] Address: [address] [place] [address] Result Comment: The [place] [employer] (ADA) provides guidance for cutoff [...] Standards of Medical Care in Diabetes 2016, [place] [employer]. Diabetes Care. 2016.39(Suppl 1). Performed By: #### 2 4321-2 ####[facility] LABIA [id number] [place] [address] [place] Potassium [Moles/Vol] 4.6 mmol/L Normal 3.7-5.1 [facility] Comment on above: Order Comment: Speci men Type: BLOOD SPECIMENOrdering Facility: [facility] Address: [address] Performed By: #### 2 4321-2 ####[facility] LABCLIA [id number] [place] [address] [place] Sodium [Moles/Vol] 140 mmol/L Normal 136-144 [facility] Comment on above: Order Comment: Speci men Type: BLOOD SPECIMENOrdering Facility: [facility] Address: [address] Performed By: #### 2 4321-2 ####[facility] LABCLIA [id number] [place] [address] [place] Urea nitrogen [Mass/Vol] 43 mg/dL High 9-24 [facility] Comment on above: Order Comment: Speci men Type: BLOOD SPECIMENOrdering Facility: [facility] Address: [address] Performed By: #### 2 4321-2 ####[facility] LABIA [id number] [place] [address] [place] Anion gap [Moles/Vol] 14 mmol/L Normal 9-18 [facility] Comment on above: Order Comment: Speci men Type: BLOOD SPECIMENOrdering Facility: [facility] Address: [address] Performed By: #### 1 9123-9, 60119-3, 2777-1 ####[facility] LABCLIA [id number] [place] [address] [place] Calcium [Mass/Vol] 8.7 mg/dL Normal 8.5-10.2 [facility] Comment on above: Order Comment: Speci men Type: BLOOD SPECIMENOrdering Facility: [facility] Address: [address] Performed By: #### 1 9123-9, 50662-1, 2777-1 ####[facility] LABIA [id number] [place] [address] [place] Chloride [Moles/Vol] 109 mmol/L High 97-105 [facility] Comment on above: Order Comment: Speci men Type: BLOOD SPECIMENOrdering Facility: [facility] Address: [address] [place] [address] Performed By: #### 1 9123-9, 86060-5, 2777-1 ####[facility] LABIA [id number] [place] [address] [place] CO2 [Moles/Vol] 17 mmol/L Low 22-30 [facility] Comment on above: Order Comment: Speci men Type: BLOOD SPECIMENOrdering Facility: [facility] Address: [address] [place] [address] Performed By: #### 1 9123-9, 24302-4, 2777-1 ####[facility] LABIA [id number] [place] [address] [place] Creatinine [Mass/Vol] 1.75 mg/dL High 0.73-1.22 [facility] Comment on above: Order Comment: Speci men Type: BLOOD SPECIMENOrdering Facility: [facility] Address: [address] [place] [address] Performed By: #### 1 9123-9, 62491-6, 2777- ####[facility] [id number] [place] [address] [place] ESTIMATED GLOMERULAR FILTRATION RATE 43 mL/min/1.73m??? Low >=60 [facility] Comment on above: Order Comment: Speci men Type: BLOOD SPECIMENOrdering Facility: [facility] Address: [address] [place] [address] Result Comment: Karina mated Glomerular Filtration Rate [...] Performed By: #### 1 9123-9, , 2776-10 ####[facility] LABCLIA [id number] [address] [address] [place] Glucose [Mass/Vol] 112 mg/dL High 74-99 [facility] Comment on above: Order Comment: Chaz trevizo Type: BLOOD SPECIMENOrdering Facility: [facility] Address: [address] [place] [id number] Result Comment: The [place] Diabetes Association (ADA) provides guidance for cutoff [...] Standards of Medical Care in Diabetes 2016, [place] [employer]. Diabetes Care. 2016.39(Suppl 1). Performed By: #### 1 239, , 2776-10 ####[facility] LABCLIA [id number] [place] [id number] [place] Potassium [Moles/Vol] 5.4 mmol/L High 3.7-5.1 [facility] Comment on above: Order Comment: Chaz trevizo Type: BLOOD SPECIMENOrdering Facility: [facility] Address: [address] [place] [address] Performed By: #### 1 [address], , 2776-10 ####[facility] LABCLIA [id number] [address] [address] [place] Sodium [Moles/Vol] 140 mmol/L Normal 136-144 [facility] Comment on above: Order Comment: Speci men Type: BLOOD SPECIMENOrdering Facility: [facility] Address: [address] [place] [address] Performed By: #### 1 9123-9, 52281-3, 2777-1 ####[facility] LABCLIA [id number] [place] [address] [place] Urea nitrogen [Mass/Vol] 40 mg/dL High 9-24 [facility] Comment on above: Order Comment: Speci men Type: BLOOD SPECIMENOrdering Facility: [facility] Address: [address] [place] [address] Performed By: #### 1 9123-9, 87312-7, 2777-1 ####[facility] LABCLIA [id number] [place] [address] [place] CASE MANAGEMon 11-27-2022 CASE MANAGEM Normal [facility] CBC panel Auto (Bld)on 11-27 Erythrocyte distribution width (RBC) [Ratio] 17.2 % High 11.5-15.0 [facility] Comment on above: Order Comment: Speci men Type: BLOOD SPECIMENOrdering Facility: [facility] Address: [address] [place] [address] Performed By: #### 5 8410-2 ####[facility] LABCLIA [id number] [place] [address] [place] Hematocrit (Bld) [Volume fraction] 36.2 % Low 39.0-51.0 [facility] Comment on above: Order Comment: Speci men Type: BLOOD SPECIMENOrdering Facility: [facility] Address: [address] [place] [address] Performed By: #### 5 8410-2 ####[facility] LABCLIA [id number] [place] [address] [place] Hemoglobin (Bld) [Mass/Vol] 12.0 g/dL Low 13.0-17.0 [facility] Comment on above: Order Comment: Speci men Type: BLOOD SPECIMENOrdering Facility: [facility] Address: [address] [place] [address] Performed By: #### 5 8410-2 ####[facility] LABIA [id number] [address] MCH (RBC) [Entitic mass] 28.4 pg Normal 26.0-34.0 [facility] Comment on above: Order Comment: Speci men Type: BLOOD SPECIMENOrdering Facility: [facility] Address: [address] [place] [address] Performed By: #### 5 8410-2 ####[facility] LABIA [id number] [address] MCHC (RBC) [Mass/Vol] 33.1 g/dL Normal 30.5-36.0 [facility] Comment on above: Order Comment: Speci men Type: BLOOD SPECIMENOrdering Facility: [facility] Address: [address] [place], [place] [address] Performed By: #### 5 8410-2 ####[facility] LABIA [id number] [address] [place] MCV (RBC) [Entitic vol] 85.8 fL Normal 80.0-100.0 [facility] Comment on above: Order Comment: Speci men Type: BLOOD SPECIMENOrdering Facility: [facility] Address: [address] [place], [place] [address] Performed By: #### 5 8410-2 ####[facility] LABIA [id number] [address] [place] Nucleated RBC (Bld) [#/Vol] 10*3/uL Normal <0.01 [facility] Comment on above: Order Comment: Speci men Type: BLOOD SPECIMENOrdering Facility: [facility] Address: [address] [place] [address] Performed By: #### 5 8410-2 ####[facility] LABIA [id number] [place] [address] [place] Platelet mean volume (Bld) [Entitic vol] 13.7 fL High 9.0-12.7 [facility] Comment on above: Order Comment: Speci men Type: BLOOD SPECIMENOrdering Facility: [facility] Address: [address] [place] [address] Performed By: #### 5 8410-2 ####[facility] LABIA [id number] [place] [address] [place] Platelets (Bld) [#/Vol] 92 10*3/uL Low 150-400 [facility] Comment on above: Order Comment: Speci men Type: BLOOD SPECIMENOrdering Facility: [facility] Address: [address] [place] [address] Result Comment: Resu lts checked and verified.No clot detected. Performed By: #### 5 8410-2 ####[facility] LABIA [id number] [place] [address] [place] RBC (Bld) [#/Vol] 4.22 10*6/uL Normal 4.20-6.00 [facility] Comment on above: Order Comment: Speci men Type: BLOOD SPECIMENOrdering Facility: [facility] Address: [address] [place], [place] [address] Performed By: #### 5 8410-2 ####[facility] LABIA [id number] [place] [address] [place] WBC (Bld) [#/Vol] 14.13 10*3/uL High 3.70-11.00 [facility] Comment on above: Order Comment: Speci men Type: BLOOD SPECIMENOrdering Facility: [facility] Address: [address] [place], [place] [address] Performed By: #### 5 8410-2 ####[facility] LABIA [id number] [place] [address] [place] CONSULT PROGon 11-27-2022 CONSULT PROG Normal [facility] Gas and Carbon monoxide pane l (BldV)on 11-27-2022 BASE DEFICIT, VENOUS -5 mmol/L Low -2-0 [facility] Comment on above: Order Comment: Speci men Type: VENOUS BLOOD SPECIMENOrdering Facility: [facility] Address: [address] [address] Performed By: #### 2 4344-4 ####[facility] LABIA [id number] [address] [place] Body temperature 98.6 [degF] Normal [facility] Comment on above: Order Comment: Speci men Type: VENOUS BLOOD SPECIMENOrdering Facility: [facility] Address: [address] [place] [address] Performed By: #### 2 4344-4 ####[facility] LABIA [id number] [address] STATES OF [facility] Calcium.ionized (Bld) [Mass/Vol] 1.20 mmol/L Normal 1.08-1.30 [facility] Comment on above: Order Comment: Speci men Type: VENOUS BLOOD SPECIMENOrdering Facility: [facility] Address: [address] Performed By: #### 2 4344-4 ####[facility] LABIA [id number] [address] [place] Calcium.ionized adjusted to pH 7.4 (BldA) [Moles/Vol] 1.17 mmol/L Normal 1.08-1.30 [facility] Comment on above: Order Comment: Speci men Type: VENOUS BLOOD SPECIMENOrdering Facility: [facility] Address: [address] [place] [address] Performed By: #### 2 4344-4 ####[facility] LABCLIA [id number] [address] [place] Carboxyhemoglobin (BldV) [Mass fraction] 0.1 % Normal 0.0-2.0 [facility] Comment on above: Order Comment: Speci men Type: VENOUS BLOOD SPECIMENOrdering Facility: [facility] Address: [address] [place] [address] Result Comment: Carb oxyhemoglobin Reference Range for Smokers: 2.0-8.0% Performed By: #### 2 4344-4 ####[facility] LABCLIA [id number] [address] [place] CO2 (BldV) [Partial pressure] 35 mm[Hg] Low 42-55 [facility] Comment on above: Order Comment: Speci men Type: VENOUS BLOOD SPECIMENOrdering Facility: [facility] Address: [address] Performed By: #### 2 4344-4 ####[facility] LABCLIA [id number] [place] [address] [place] CO2 [Moles/Vol] 20 mmol/L Low 25-29 [facility] Comment on above: Order Comment: Speci men Type: VENOUS BLOOD SPECIMENOrdering Facility: [facility] Address: [address] Performed By: #### 2 4344-4 ####[facility] LABCLIA [id number] [place] [address] [place] Glucose [Mass/Vol] 159 mg/dL High 60-105 [facility] Comment on above: Order Comment: Speci men Type: VENOUS BLOOD SPECIMENOrdering Facility: [facility] Address: [address] Performed By: #### 2 4344-4 ####[facility] LABCLIA [id number] [place] [address] [place] HCO3 (Bld) [Moles/Vol] 19 mmol/L Low 24-28 [facility] Comment on above: Order Comment: Speci men Type: VENOUS BLOOD SPECIMENOrdering Facility: [facility] Address: [address] [place] [address] Performed By: #### 2 4344-4 ####[facility] LABCLIA [id number] [place] [address] [place] Hematocrit (Bld) [Volume fraction] 36.7 % Low 39.0-51.0 [facility] Comment on above: Order Comment: Speci men Type: VENOUS BLOOD SPECIMENOrdering Facility: [facility] Address: [address] [place] [address] Performed By: #### 2 4344-4 ####[facility] LABCLIA [id number] [place] [address] [place] Hemoglobin (Bld) [Mass/Vol] 11.9 g/dL Low 13.0-17.0 [facility] Comment on above: Order Comment: Speci men Type: VENOUS BLOOD SPECIMENOrdering Facility: [facility] Address: [address] [place], [place] [address] Performed By: #### 2 4344-4 ####[facility] LABCLIA [id number] [place] [address] [place] Lactate [Moles/Vol] 2.0 mmol/L Normal 0.5-2.2 [facility] Comment on above: Order Comment: Speci men Type: VENOUS BLOOD SPECIMENOrdering Facility: [facility] Address: [address] [place], [place] [address] Performed By: #### 2 4344-4 ####[facility] LABCLIA [id number] [place] [address] [place] LITERS 5 Liters/min Normal [facility] Comment on above: Order Comment: Speci men Type: VENOUS BLOOD SPECIMENOrdering Facility: [facility] Address: [address] [place] [address] Performed By: #### 2 4344-4 ####[facility] LABCLIA [id number] [place] [address] [place] Methemoglobin (Bld) [Mass fraction] 1.7 % High 0.0-1.5 [facility] Comment on above: Order Comment: Speci men Type: VENOUS BLOOD SPECIMENOrdering Facility: [facility] Address: [address] Performed By: #### 2 4344-4 ####[facility] LABCLIA [id number] [place] [address] [place] O2 THERAPY NC = Nasal Cannula Normal [facility] Comment on above: Order Comment: Speci men Type: VENOUS BLOOD SPECIMENOrdering Facility: [facility] Address: [address] Performed By: #### 2 4344-4 ####[facility] LABCLIA [id number] [place] [address] [place] Oxygen (BldV) [Partial pressure] 71 mm[Hg] High 35-45 [facility] Comment on above: Order Comment: Speci men Type: VENOUS BLOOD SPECIMENOrdering Facility: [facility] Address: [address] [place] [address] Performed By: #### 2 4344-4 ####[facility] LABCLIA [id number] [place] [address] [place] Oxygen saturation in Venous blood 94 % High 60-85 [facility] Comment on above: Order Comment: Speci men Type: VENOUS BLOOD SPECIMENOrdering Facility: [facility] Address: [address] [place] [address] Performed By: #### 2 4344-4 ####[facility] LABCLIA [id number] [place] [address] [place] Oxyhemoglobin (BldV) [Mass fraction] 92 % High 60-85 [facility] Comment on above: Order Comment: Speci men Type: VENOUS BLOOD SPECIMENOrdering Facility: [facility] Address: [address] [place] [address] Performed By: #### 2 4344-4 ####[facility] LABIA [id number] [place] [address] [place] pH (BldV) 7.36 [pH] Normal 7.32-7.42 [facility] Comment on above: Order Comment: Speci men Type: VENOUS BLOOD SPECIMENOrdering Facility: [facility] Address: [address] [place] [address] Performed By: #### 2 4344-4 ####[facility] LABIA [id number] [place] [address] [place] Potassium [Moles/Vol] 4.3 mmol/L Normal 3.5-5.0 [facility] Comment on above: Order Comment: Speci men Type: VENOUS BLOOD SPECIMENOrdering Facility: [facility] Address: [address] [place] [address] Performed By: #### 2 4344-4 ####[facility] LABIA [id number] [place] [address] [place] Sodium [Moles/Vol] 137 mmol/L Normal 136-144 [facility] Comment on above: Order Comment: Speci men Type: VENOUS BLOOD SPECIMENOrdering Facility: [facility] Address: [address] [place], [place] [address] Performed By: #### 2 4344-4 ####[facility] LABCLIA [id number] [place] [address] [place] BASE DEFICIT, VENOUS -5 mmol/L Low -2-0 [facility] Comment on above: Order Comment: Speci men Type: VENOUS BLOOD SPECIMENOrdering Facility: [facility] Address: [address] [address] Performed By: #### 2 4344-4 ####[facility] LABIA [id number] [place] [address] [place] Body temperature 98.6 [degF] Normal [facility] Comment on above: Order Comment: Speci men Type: VENOUS BLOOD SPECIMENOrdering Facility: [facility] Address: [address] [address] Performed By: #### 2 4344-4 ####[facility] [id number] [place] [address] [place] Calcium.ionized (Bld) [Mass/Vol] 1.21 mmol/L Normal 1.08-1.30 [facility] Comment on above: Order Comment: Speci men Type: VENOUS BLOOD SPECIMENOrdering Facility: [facility] Address: [address] [place] [address] Performed By: #### 2 4344-4 ####[facility] [id number] [place] [address] [place] Calcium.ionized adjusted to pH 7.4 (BldA) [Moles/Vol] 1.18 mmol/L Normal 1.08-1.30 [facility] Comment on above: Order Comment: Speci men Type: VENOUS BLOOD SPECIMENOrdering Facility: [facility] Address: [address] Performed By: #### 2 4344-4 ####[facility] [id number] [place] [address] [place] Carboxyhemoglobin (BldV) [Mass fraction] 0.8 % Normal 0.0-2.0 [facility] Comment on above: Order Comment: Speci men Type: VENOUS BLOOD SPECIMENOrdering Facility: [facility] Address: [address] [place], [place] [address] Result Comment: Carb oxyhemoglobin Reference Range for Smokers: 2.0-8.0% Performed By: #### 2 4344-4 ####[facility] LABCLIA [id number] [place] [address] [place] CO2 (BldV) [Partial pressure] 36 mm[Hg] Low 42-55 [facility] Comment on above: Order Comment: Speci men Type: VENOUS BLOOD SPECIMENOrdering Facility: [facility] Address: [address] Performed By: #### 2 4344-4 ####[facility] LABCLIA [id number] [place] [address] [place] CO2 [Moles/Vol] 21 mmol/L Low 25-29 [facility] Comment on above: Order Comment: Speci men Type: VENOUS BLOOD SPECIMENOrdering Facility: [facility] Address: [address] [address] Performed By: #### 2 4344-4 ####[facility] LABCLIA [id number] [place] [address] [place] FIO2 35 % Normal [facility] Comment on above: Order Comment: Speci men Type: VENOUS BLOOD SPECIMENOrdering Facility: [facility] Address: [address] [address] Performed By: #### 2 4344-4 ####[facility] LABCLIA [id number] [place] [address] [place] Glucose [Mass/Vol] 129 mg/dL High 60-105 [facility] Comment on above: Order Comment: Speci men Type: VENOUS BLOOD SPECIMENOrdering Facility: [facility] Address: [address] Performed By: #### 2 4344-4 ####[facility] LABCLIA [id number] [place] [address] [place] HCO3 (Bld) [Moles/Vol] 20 mmol/L Low 24-28 [facility] Comment on above: Order Comment: Speci men Type: VENOUS BLOOD SPECIMENOrdering Facility: [facility] Address: [address] Performed By: #### 2 4344-4 ####[facility] LABCLIA [id number] [place] [address] [place] Hematocrit (Bld) [Volume fraction] 37.1 % Low 39.0-51.0 [facility] Comment on above: Order Comment: Speci men Type: VENOUS BLOOD SPECIMENOrdering Facility: [facility] Address: [address] [address] Performed By: #### 2 4344-4 ####[facility] LABCLIA [id number] [place] [address] [place] Hemoglobin (Bld) [Mass/Vol] 12.0 g/dL Low 13.0-17.0 [facility] Comment on above: Order Comment: Speci men Type: VENOUS BLOOD SPECIMENOrdering Facility: [facility] Address: [address] [place], [place] [address] Performed By: #### 2 4344-4 ####[facility] LABCLIA [id number] [place] [address] [place] Lactate [Moles/Vol] 1.8 mmol/L Normal 0.5-2.2 [facility] Comment on above: Order Comment: Speci men Type: VENOUS BLOOD SPECIMENOrdering Facility: [facility] Address: [address] Performed By: #### 2 4344-4 ####[facility] LABCLIA [id number] [place] [address] [place] Methemoglobin (Bld) [Mass fraction] 1.5 % Normal 0.0-1.5 [facility] Comment on above: Order Comment: Speci men Type: VENOUS BLOOD SPECIMENOrdering Facility: [facility] Address: [address] [place] [address] Performed By: #### 2 4344-4 ####[facility] LABCLIA [id number] [place] [address] [place] O2 THERAPY Hi-Flow Nasal Cannula-Heated Normal [facility] Comment on above: Order Comment: Speci men Type: VENOUS BLOOD SPECIMENOrdering Facility: [facility] Address: [address] [place] [address] Performed By: #### 2 4344-4 ####[facility] LABCLIA [id number] [place] [address] [place] Oxygen (BldV) [Partial pressure] 62 mm[Hg] High 35-45 [facility] Comment on above: Order Comment: Speci men Type: VENOUS BLOOD SPECIMENOrdering Facility: [facility] Address: [address] [place] [address] Performed By: #### 2 4344-4 ####[facility] LABCLIA [id number] [place] [address] [place] Oxygen saturation in Venous blood 90 % High 60-85 [facility] Comment on above: Order Comment: Speci men Type: VENOUS BLOOD SPECIMENOrdering Facility: [facility] Address: [address] [place] [address] Performed By: #### 2 4344-4 ####[facility] LABCLIA [id number] [place] [address] [place] Oxyhemoglobin (BldV) [Mass fraction] 88 % High 60-85 [facility] Comment on above: Order Comment: Speci men Type: VENOUS BLOOD SPECIMENOrdering Facility: [facility] Address: [address] [place] [address] Performed By: #### 2 4344-4 ####[facility] LABCLIA [id number] [address] [place] [address] [place] pH (BldV) 7.35 [pH] Normal 7.32-7.42 [facility] Comment on above: Order Comment: Speci men Type: VENOUS BLOOD SPECIMENOrdering Facility: [facility] Address: [address] [place] [address] Performed By: #### 2 4344-4 ####[facility] LABCLIA [id number] [place] [address] [place] Potassium [Moles/Vol] 4.7 mmol/L Normal 3.5-5.0 [facility] Comment on above: Order Comment: Speci men Type: VENOUS BLOOD SPECIMENOrdering Facility: [facility] Address: [address] [place] [address] Performed By: #### 2 4344-4 ####[facility] LABIA [id number] [place] [address] [place] Sodium [Moles/Vol] 139 mmol/L Normal 136-144 [facility] Comment on above: Order Comment: Speci men Type: VENOUS BLOOD SPECIMENOrdering Facility: [facility] Address: [address] [place] [address] Performed By: #### 2 4344-4 ####[facility] LABIA [id number] [place] [address] [place] Magnesium SerPl-mCncon 11-27 Magnesium [Mass/Vol] 2.2 mg/dL Normal 1.7-2.3 [facility] Comment on above: Order Comment: Speci men Type: BLOOD SPECIMENOrdering Facility: [facility] Address: [address] [place] [address] Performed By: #### 1 9123-9, 14625-8, 2777-1 ####[facility] LABCLIA [id number] [place] [address] [place] Phosphate SerPl-mCncon 11-27 Phosphate [Mass/Vol] 3.9 mg/dL Normal 2.7-4.8 [facility] Comment on above: Order Comment: Speci men Type: BLOOD SPECIMENOrdering Facility: [facility] Address: [address] [facility] [place] [address] Performed By: #### 1 9123-9, 05318-0, 2777-1 ####[facility] LABCLIA [id number] [place] [address] [place] THERAPY NTon 11-27-2022 THERAPY NT Normal [facility] XR CHEST 1V FRONTAL PORTon 0 11-27-2022 XR CHEST 1V FRONTAL PORT Normal [facility] Bacteria Bld Culton 11-26-19 Bacteria identified Cx Nom (Bld) Abnormal [facility] Comment on above: Performed By: #### 6 00-7 ####[facility] LABCLIA [id number] [place] [address] [place] Bacteria identified Cx Nom (Bld) ORGANISM ID: 1 Klebsiella (enterobacter) aerogenes Refer to specimen collected on 11/26/2022 1147 ([id number]) GRAM STAIN: Gram negative bacilli Abnormal [facility] Comment on above: Performed By: #### 6 00-7 ####[facility] LABCLIA [id number] [place] [id number] [place] CASE MANAGEMon 11-26-2022 CASE MANAGEM Normal [facility] CBC panel Auto (Bld)on 11-26 Erythrocyte distribution width (RBC) [Ratio] 16.9 % High 11.5-15.0 [facility] Comment on above: Order Comment: Speci men Type: BLOOD SPECIMENOrdering Facility: [facility] Address: [place] [address] Performed By: #### 5 8410-2 ####[facility] LABCLIA [id number] [place] [address] [place] Hematocrit (Bld) [Volume fraction] 34.9 % Low 39.0-51.0 [facility] Comment on above: Order Comment: Speci men Type: BLOOD SPECIMENOrdering Facility: [facility] Address: [address] [place] [address] Performed By: #### 5 8410-2 ####[facility] LABCLIA [id number] [place] [address] [place] Hemoglobin (Bld) [Mass/Vol] 11.1 g/dL Low 13.0-17.0 [facility] Comment on above: Order Comment: Speci men Type: BLOOD SPECIMENOrdering Facility: [facility] Address: [address] [place] [address] Performed By: #### 5 8410-2 ####[facility] LABIA [id number] [address] [place] MCH (RBC) [Entitic mass] 28.2 pg Normal 26.0-34.0 [facility] Comment on above: Order Comment: Speci men Type: BLOOD SPECIMENOrdering Facility: [facility] Address: [address] [place] [address] Performed By: #### 5 8410-2 ####[facility] LABIA [id number] [address] [place] MCHC (RBC) [Mass/Vol] 31.8 g/dL Normal 30.5-36.0 [facility] Comment on above: Order Comment: Speci men Type: BLOOD SPECIMENOrdering Facility: [facility] Address: [address] [place], [place] [address] Performed By: #### 5 8410-2 ####[facility] LABIA [id number] [place] [address] [place] MCV (RBC) [Entitic vol] 88.8 fL Normal 80.0-100.0 [facility] Comment on above: Order Comment: Speci men Type: BLOOD SPECIMENOrdering Facility: [facility] Address: [address] Performed By: #### 5 8410-2 ####[facility] LABIA [id number] [place] [address] [place] Nucleated RBC (Bld) [#/Vol] 10*3/uL Normal <0.01 [facility] Comment on above: Order Comment: Speci men Type: BLOOD SPECIMENOrdering Facility: [facility] Address: [address] [place] [address] Performed By: #### 5 8410-2 ####[facility] [id number] [place] [address] [place] Platelet mean volume (Bld) [Entitic vol] 12.2 fL Normal 9.0-12.7 [facility] Comment on above: Order Comment: Speci men Type: BLOOD SPECIMENOrdering Facility: [facility] Address: [address] [place] [address] Performed By: #### 5 8410-2 ####[facility] [id number] [place] [address] [place] Platelets (Bld) [#/Vol] 88 10*3/uL Low 150-400 [facility] Comment on above: Order Comment: Speci men Type: BLOOD SPECIMENOrdering Facility: [facility] Address: [address] [place] [address] Result Comment: Resu lts checked and verified.No clot detected. Performed By: #### 5 8410-2 ####[facility] [id number] [place] [address] [place] RBC (Bld) [#/Vol] 3.93 10*6/uL Low 4.20-6.00 [facility] Comment on above: Order Comment: Speci men Type: BLOOD SPECIMENOrdering Facility: [facility] Address: [address] [place], [place] [address] Performed By: #### 5 8410-2 ####[facility] LABCLIA [id number] [place] [id number] [place] WBC (Bld) [#/Vol] 4.71 10*3/uL Normal 3.70-11.00 [facility] Comment on above: Order Comment: Speci men Type: BLOOD SPECIMENOrdering Facility: [facility] Address: [address] [place], [place] [address] Performed By: #### 5 8410-2 ####[facility] LABIA [id number] [place] [address] [place] CONSULT PROGon 11-26-2022 CONSULT PROG Normal [facility] CRP SerPl-mCncon 11-26-2022 CRP [Mass/Vol] 17.0 mg/dL High <0.9 [facility] Comment on above: Order Comment: Speci men Type: BLOOD SPECIMENOrdering Facility: [facility] Address: [address] [place], [place] [address] Performed By: #### 2 4323-8, 69718-1, 1988-02 ####[facility] LABIA [id number] [place] [address] [place] Comprehensive metabolic 2000 panelon 11-26-2022 Albumin [Mass/Vol] 2.8 g/dL Low 3.9-4.9 [facility] Comment on above: Order Comment: Speci men Type: BLOOD SPECIMENOrdering Facility: [facility] Address: [address] [place], [place] [address] Performed By: #### 2 4323-8, 18676-5, 1988-02 ####[facility] LABIA [id number] [place] [address] [place] ALP [Catalytic activity/Vol] 95 U/L Normal 38-113 [facility] Comment on above: Order Comment: Speci men Type: BLOOD SPECIMENOrdering Facility: [facility] Address: [address] [place], [place] [address] Performed By: #### 2 4323-8, 57939-6, 1988-02 ####[facility] LABCLIA [id number] [place] [address] [place] ALT [Catalytic activity/Vol] U/L Low 10-54 [facility] Comment on above: Order Comment: Speci men Type: BLOOD SPECIMENOrdering Facility: [facility] Address: [address] Result Comment: Resu lt rechecked. Performed By: #### 2 4323-8, 80005-7, 1988-02 ####[facility] LABCLIA [id number] [place] [address] [place] Anion gap [Moles/Vol] 10 mmol/L Normal 9-18 [facility] Comment on above: Order Comment: Speci men Type: BLOOD SPECIMENOrdering Facility: [facility] Address: [address] [place], [place] [address] Performed By: #### 2 4323-8, 91066-4, 1988-02 ####[facility] LABIA [id number] [place] [address] [place] AST [Catalytic activity/Vol] 10 U/L Low 14-40 [facility] Comment on above: Order Comment: Speci men Type: BLOOD SPECIMENOrdering Facility: [facility] Address: [address] [place] [address] Performed By: #### 2 4323-8, 70869-8, 1988-02 ####[facility] LABIA [id number] [place] [address] [place] Bilirubin [Mass/Vol] 0.4 mg/dL Normal 0.2-1.3 [facility] Comment on above: Order Comment: Speci men Type: BLOOD SPECIMENOrdering Facility: [facility] Address: [address] Performed By: #### 2 8, , 1988-02 ####[facility] LABCLIA [id number] [place] [address] [place] Calcium [Mass/Vol] 8.1 mg/dL Low 8.5-10.2 [facility] Comment on above: Order Comment: Speci men Type: BLOOD SPECIMENOrdering Facility: [facility] Address: [address] [place] [address] Performed By: #### 2 8, , 1988-02 ####[facility] LABCLIA [id number] [place] [address] [place] Chloride [Moles/Vol] 108 mmol/L High 97-105 [facility] Comment on above: Order Comment: Speci men Type: BLOOD SPECIMENOrdering Facility: [facility] Address: [address] [place], [place] [address] Performed By: #### 2 8, , 1988-02 ####[facility] LABCLIA [id number] [place] [address] [place] CO2 [Moles/Vol] 20 mmol/L Low 22-30 [facility] Comment on above: Order Comment: Speci men Type: BLOOD SPECIMENOrdering Facility: [facility] Address: [address] [place] [address] Performed By: #### 2 8, , 1988-02 ####[facility] LABCLIA [id number] [place] [id number] [place] Creatinine [Mass/Vol] 1.92 mg/dL High 0.73-1.22 [facility] Comment on above: Order Comment: Speci men Type: BLOOD SPECIMENOrdering Facility: [facility] Address: [address] [place], [place] [address] Performed By: #### 2 432-8, 94135-9, 1988-02 ####[facility] LABCLIA [id number] [place] [address] [place] ESTIMATED GLOMERULAR FILTRATION RATE 38 mL/min/1.73m??? Low >=60 [facility] Comment on above: Order Comment: Chaz trevizo Type: BLOOD SPECIMENOrdering Facility: [facility] Address: [address] Result Comment: Karina mated Glomerular Filtration [...] actual GFR. Performed By: #### 2 4323-8, 38753-8, 1988-02 ####[facility] [id number] [place] [address] [place] Glucose [Mass/Vol] 88 mg/dL Normal 74-99 [facility] Comment on above: Order Comment: Chaz trevizo Type: BLOOD SPECIMENOrdering Facility: [facility] Address: [address] [place] [address] Result Comment: The [place] [employer] (ADA) provides guidance for cutoff [...] Standards of Medical Care in Diabetes 2016, [place] [employer]. Diabetes Care. 2016.39(Suppl 1). Performed By: #### 2 4323-8, 85644-8, 1988-02 ####[facility] [id number] [place] [id number] [place] Potassium [Moles/Vol] 4.4 mmol/L Normal 3.7-5.1 [facility] Comment on above: Order Comment: Speci men Type: BLOOD SPECIMENOrdering Facility: [facility] Address: [address] [place] [address] Performed By: #### 2 4323-8, 80948-9, 1988-02 ####[facility] LABCLIA [id number] [place] [address] [place] Protein [Mass/Vol] 5.2 g/dL Low 6.3-8.0 [facility] Comment on above: Order Comment: Speci men Type: BLOOD SPECIMENOrdering Facility: [facility] Address: [address] [place], [place] [address] Performed By: #### 2 4323-8, 18595-1, 1988-02 ####[facility] LABCLIA [id number] [place] [address] [place] Sodium [Moles/Vol] 138 mmol/L Normal 136-144 [facility] Comment on above: Order Comment: Speci men Type: BLOOD SPECIMENOrdering Facility: [facility] Address: [address] [place] [address] Performed By: #### 2 4323-8, 72929-8, 1988-02 ####[facility] LABCLIA [id number] [place] [id number] [place] Urea nitrogen [Mass/Vol] 44 mg/dL High 9-24 [facility] Comment on above: Order Comment: Speci men Type: BLOOD SPECIMENOrdering Facility: [facility] Address: [address] [place] [address] Performed By: #### 2 4323-8, 20032-0, 1988-02 ####[facility] LABCLIA [id number] [place] [id number] [place] ECG COMPLETEon 11-26-2022 ECG COMPLETE Normal [facility] HISTORY PHYSICALon HISTORY PHYSICAL Normal [facility] MEDICAL EMERon 11-26-2022 MEDICAL KALEB Normal [facility] NURSING PROGon 11-26-2022 NURSING PROG Normal [facility] NUTRITIONon 11-26-2022 NUTRITION Normal [facility] PT panel Coag (PPP)on 2022 INR Coag (PPP) [Relative time] 1.2 {INR} Normal 0.9-1.3 [facility] Comment on above: Order Comment: Speci men Type: BLOOD SPECIMENOrdering Facility: [facility] Address: [address] [place] [phone] Result Comment: Bouchra min K Antagonist (VKA) Therapeutic Range: INR 2 to 3 (Target INR of 2.5)Note: For patients treated with VKA drugs, such as warfarin, the [employer] 2012 Guideline recommends [...] al. Chest 2012, 141:7S-47SNishmercy RA, et al. [facility] 2017, 70: 252-289 Performed By: #### 3 4528-0 ####[facility] LABCLIA [id number] [facility] [id number] [address] [place] PT Coag (PPP) [Time] 12.2 s Normal 9.7-13.0 [facility] Comment on above: Order Comment: Chaz trevizo Type: BLOOD SPECIMENOrdering Facility: [facility] Address: [address] [place] [address] Performed By: #### 3 4528-0 ####[facility] LABCLIA [id number] [place] [address] [place] Procalcitonin SerPl-mCncon 0 11-26-2022 Procalcitonin [Mass/Vol] 11.48 ng/mL High <0.09 [facility] Comment on above: Order Comment: Speci men Type: BLOOD SPECIMENOrdering Facility: [facility] Address: [address] [place] [address] Result Comment: For a guided interpretation of test results, please visit the Change in Procalcitonin Calculator, [email or web address]. Performed By: #### 2 4323-8, 74403-0, 1988-02 ####[facility] [id number] [place] [address] [place] SEPSIS LACTATEon 11-26-2022 Lactate [Moles/Vol] 2.4 mmol/L High <=2.0 [facility] Comment on above: Order Comment: Speci men Type: BLOOD SPECIMENOrdering Facility: [facility] Address: [address] [place] [address] Performed By: #### S LACT ####[facility] LABIA [id number] [place] [address] [place] STAPH AUREUS PCRon 3 S. aureus and MRSA panel KELLIE+probe (Nose) Normal Negative [facility] Comment on above: Order Comment: Speci men Type: SWAB OF INTERNAL NOSEOrdering Facility: [facility] Address: [address] [place] [address] Result Comment: Nega tive for Staphylococcus aureus by PCR.Negative for MRSA by PCR Performed By: #### S APCR ####[facility] LABIA [id number] [place] [address] [place] THERAPY NTon 11-26-2022 THERAPY NT Normal [facility] THERAPY NT Normal [facility] US KIDNEY/BLADDERon 11-26-19 23 US KIDNEY/BLADDER Normal [facility] Urinalysis complete pnl Uron 11-26-2022 Urinalysis complete panel (U) Normal [facility] Comment on above: Order Comment: Speci men Type: URINE SPECIMENOrdering Facility: [facility] Address: [address] [place] [address] Performed By: #### 2 4356-8 ####[facility] LABCLIA [id number] [place] [address] [place] XR CHEST 1V FRONTAL PORTon 0 11-26-2022 XR CHEST 1V FRONTAL PORT Normal [facility] CASE MGT INIT ASSESon 2022 CASE MGT INIT ASSES Normal [facility] CBC panel Auto (Bld)on 11-25 Erythrocyte distribution width (RBC) [Ratio] 17.2 % High 11.5-15.0 [facility] Comment on above: Order Comment: Speci men Type: BLOOD SPECIMENOrdering Facility: [facility] Address: [address] [place], [place] [address] Performed By: #### 5 8410-2 ####[facility] LABCLIA [id number] [place] [address] [place] Hematocrit (Bld) [Volume fraction] 36.9 % Low 39.0-51.0 [facility] Comment on above: Order Comment: Speci men Type: BLOOD SPECIMENOrdering Facility: [facility] Address: [address] [place], [place] [address] Performed By: #### 5 8410-2 ####[facility] LABCLIA [id number] [place] [address] [place] Hemoglobin (Bld) [Mass/Vol] 11.6 g/dL Low 13.0-17.0 [facility] Comment on above: Order Comment: Speci men Type: BLOOD SPECIMENOrdering Facility: [facility] Address: [address] [place], [place] [address] Performed By: #### 5 8410-2 ####[facility] LABCLIA [id number] [place] [address] [place] MCH (RBC) [Entitic mass] 27.8 pg Normal 26.0-34.0 [facility] Comment on above: Order Comment: Speci men Type: BLOOD SPECIMENOrdering Facility: [facility] Address: [address] [place] [address] Performed By: #### 5 8410-2 ####[facility] [id number] [address] [place] MCHC (RBC) [Mass/Vol] 31.4 g/dL Normal 30.5-36.0 [facility] Comment on above: Order Comment: Speci men Type: BLOOD SPECIMENOrdering Facility: [facility] Address: [address] [place] [address] Performed By: #### 5 8410-2 ####[facility] [id number] [address] [place] MCV (RBC) [Entitic vol] 88.3 fL Normal 80.0-100.0 [facility] Comment on above: Order Comment: Speci men Type: BLOOD SPECIMENOrdering Facility: [facility] Address: [address] [place] [address] Performed By: #### 5 8410-2 ####[facility] [id number] [place] [address] [place] Nucleated RBC (Bld) [#/Vol] 10*3/uL Normal <0.01 [facility] Comment on above: Order Comment: Speci men Type: BLOOD SPECIMENOrdering Facility: [facility] Address: [address] [place], [place] [address] Performed By: #### 5 8410-2 ####[facility] [id number] [address] [place] Platelet mean volume (Bld) [Entitic vol] 12.0 fL Normal 9.0-12.7 [facility] Comment on above: Order Comment: Speci men Type: BLOOD SPECIMENOrdering Facility: [facility] Address: [address] [place], [place] [address] Performed By: #### 5 8410-2 ####[facility] LABCLIA [id number] [place] [address] [place] Platelets (Bld) [#/Vol] 96 10*3/uL Low 150-400 [facility] Comment on above: Order Comment: Speci men Type: BLOOD SPECIMENOrdering Facility: [facility] Address: [address] [place], [place] [address] Result Comment: No c lot detected. Performed By: #### 5 8410-2 ####[facility] LABCLIA [id number] [place] [address] [place] RBC (Bld) [#/Vol] 4.18 10*6/uL Low 4.20-6.00 [facility] Comment on above: Order Comment: Speci men Type: BLOOD SPECIMENOrdering Facility: [facility] Address: [address] [place], [place] [address] Performed By: #### 5 8410-2 ####[facility] LABCLIA [id number] [place] [address] [place] WBC (Bld) [#/Vol] 5.31 10*3/uL Normal 3.70-11.00 [facility] Comment on above: Order Comment: Speci men Type: BLOOD SPECIMENOrdering Facility: [facility] Address: [address] [place], [place] [address] Performed By: #### 5 8410-2 ####[facility] LABCLIA [id number] [place] [address] [place] CONSULT PROGon 11-25-2022 CONSULT PROG Normal [facility] CONSULT PROG Normal [facility] Comprehensive metabolic 2000 panelon 11-25-2022 Albumin [Mass/Vol] 3.1 g/dL Low 3.9-4.9 [facility] Comment on above: Order Comment: Speci men Type: BLOOD SPECIMENOrdering Facility: [facility] Address: [address] [place] [address] Performed By: #### 2 4323-8 ####[facility] LABCLIA [id number] [place] [address] [place] ALP [Catalytic activity/Vol] 98 U/L Normal 38-113 [facility] Comment on above: Order Comment: Speci men Type: BLOOD SPECIMENOrdering Facility: [facility] Address: [address] [place] [address] Performed By: #### 2 4323-8 ####[facility] LABCLIA [id number] [place] [address] [place] ALT [Catalytic activity/Vol] U/L Low 10-54 [facility] Comment on above: Order Comment: Speci men Type: BLOOD SPECIMENOrdering Facility: [facility] Address: [address] [place] [address] Result Comment: Resu lt rechecked. Performed By: #### 2 4323-8 ####[facility] LABCLIA [id number] [place] [address] [place] Anion gap [Moles/Vol] 9 mmol/L Normal 9-18 [facility] Comment on above: Order Comment: Speci men Type: BLOOD SPECIMENOrdering Facility: [facility] Address: [address] [place] [address] Performed By: #### 2 4323-8 ####[facility] LABCLIA [id number] [place] [address] [place] AST [Catalytic activity/Vol] 8 U/L Low 14-40 [facility] Comment on above: Order Comment: Speci men Type: BLOOD SPECIMENOrdering Facility: [facility] Address: [address] [place] Performed By: #### 2 4323-8 ####[facility] LABCLIA [id number] [place] [address] [place] Bilirubin [Mass/Vol] 0.4 mg/dL Normal 0.2-1.3 [facility] Comment on above: Order Comment: Speci men Type: BLOOD SPECIMENOrdering Facility: [facility] Address: [address] Performed By: #### 2 4323-8 ####[facility] LABCLIA [id number] [place] [address] [place] Calcium [Mass/Vol] 8.4 mg/dL Low 8.5-10.2 [facility] Comment on above: Order Comment: Speci men Type: BLOOD SPECIMENOrdering Facility: [facility] Address: [address] [place], [place] [address] Performed By: #### 2 4323-8 ####[facility] LABCLIA [id number] [place] [address] [place] Chloride [Moles/Vol] 109 mmol/L High 97-105 [facility] Comment on above: Order Comment: Speci men Type: BLOOD SPECIMENOrdering Facility: [facility] Address: [address] [place] [address] Performed By: #### 2 4323-8 ####[facility] LABCLIA [id number] [place] [address] [place] CO2 [Moles/Vol] 22 mmol/L Normal 22-30 [facility] Comment on above: Order Comment: Speci men Type: BLOOD SPECIMENOrdering Facility: [facility] Address: [address] [place] [address] Performed By: #### 2 4323-8 ####[facility] LABCLIA [id number] [place] [address] [place] Creatinine [Mass/Vol] 1.18 mg/dL Normal 0.73-1.22 [facility] Comment on above: Order Comment: Chaz trevizo Type: BLOOD SPECIMENOrdering Facility: [facility] Address: [address] [place] [address] Performed By: #### 2 4323-8 ####[facility] LABCLIA [id number] [address] ESTIMATED GLOMERULAR FILTRATION RATE 69 mL/min/1.73m??? Normal >=60 [facility] Comment on above: Order Comment: Chaz trevizo Type: BLOOD SPECIMENOrdering Facility: [facility] Address: [address] [place] [address] Result Comment: Karina mated Glomerular Filtration Rate [...] actual GFR. Performed By: #### 2 4323-8 ####[facility] LABCLIA [id number] [address] [place] Glucose [Mass/Vol] 102 mg/dL High 74-99 [facility] Comment on above: Order Comment: Chaz trevizo Type: BLOOD SPECIMENOrdering Facility: [facility] Address: [address] [place] [address] Result Comment: The [place] [employer] (ADA) provides guidance for cutoff [...] Standards of Medical Care in Diabetes 2016, [place] [employer]. Diabetes Care. 2016.39(Suppl 1). Performed By: #### 2 4323-8 ####[facility] LABCLIA [id number] [place] [address] [place] Potassium [Moles/Vol] 4.8 mmol/L Normal 3.7-5.1 [facility] Comment on above: Order Comment: Speci men Type: BLOOD SPECIMENOrdering Facility: [facility] Address: [address] [place] [address] Performed By: #### 2 4323-8 ####[facility] LABCLIA [id number] [place] [address] [place] Protein [Mass/Vol] 5.5 g/dL Low 6.3-8.0 [facility] Comment on above: Order Comment: Speci men Type: BLOOD SPECIMENOrdering Facility: [facility] Address: [address] Performed By: #### 2 4323-8 ####[facility] LABCLIA [id number] [place] [address] [place] Sodium [Moles/Vol] 140 mmol/L Normal 136-144 [facility] Comment on above: Order Comment: Speci men Type: BLOOD SPECIMENOrdering Facility: [facility] Address: [address] Performed By: #### 2 4323-8 ####[facility] LABCLIA [id number] [place] [address] [place] Urea nitrogen [Mass/Vol] 31 mg/dL High 9-24 [facility] Comment on above: Order Comment: Speci men Type: BLOOD SPECIMENOrdering Facility: [facility] Address: [address] Performed By: #### 2 4323-8 ####[facility] LABCLIA [id number] [address] [place] THERAPY NTon 11-25-2022 THERAPY NT Normal [facility] CBC panel Auto (Bld)on 11-24 Erythrocyte distribution width (RBC) [Ratio] 17.2 % High 11.5-15.0 [facility] Comment on above: Order Comment: Speci men Type: BLOOD SPECIMENOrdering Facility: [facility] Address: [address] [place] [address] Performed By: #### 5 8410-2 ####[facility] LABIA [id number] [address] [place] Hematocrit (Bld) [Volume fraction] 37.8 % Low 39.0-51.0 [facility] Comment on above: Order Comment: Speci men Type: BLOOD SPECIMENOrdering Facility: [facility] Address: [address] [place] [address] Performed By: #### 5 8410-2 ####[facility] LABIA [id number] [address] [place] Hemoglobin (Bld) [Mass/Vol] 12.1 g/dL Low 13.0-17.0 [facility] Comment on above: Order Comment: Speci men Type: BLOOD SPECIMENOrdering Facility: [facility] Address: [address] [place] [address] Performed By: #### 5 8410-2 ####[facility] LABIA [id number] [address] [place] MCH (RBC) [Entitic mass] 28.4 pg Normal 26.0-34.0 [facility] Comment on above: Order Comment: Speci men Type: BLOOD SPECIMENOrdering Facility: [facility] Address: [address] [place] [address] Performed By: #### 5 8410-2 ####[facility] LABIA [id number] [address] STATES [facility] MCHC (RBC) [Mass/Vol] 32.0 g/dL Normal 30.5-36.0 [facility] Comment on above: Order Comment: Speci men Type: BLOOD SPECIMENOrdering Facility: [facility] Address: [address] [place] [address] Performed By: #### 5 8410-2 ####[facility] LABIA [id number] [address] [place] MCV (RBC) [Entitic vol] 88.7 fL Normal 80.0-100.0 [facility] Comment on above: Order Comment: Speci men Type: BLOOD SPECIMENOrdering Facility: [facility] Address: [address] [place] [address] Performed By: #### 5 8410-2 ####[facility] LABIA [id number] [place] [address] [place] Nucleated RBC (Bld) [#/Vol] 10*3/uL Normal <0.01 [facility] Comment on above: Order Comment: Speci men Type: BLOOD SPECIMENOrdering Facility: [facility] Address: [address] [place], [place] [address] Performed By: #### 5 8410-2 ####[facility] LABIA [id number] [place] [address] [place] Platelet mean volume (Bld) [Entitic vol] 12.2 fL Normal 9.0-12.7 [facility] Comment on above: Order Comment: Speci men Type: BLOOD SPECIMENOrdering Facility: [facility] Address: [address] [place], [place] [address] Performed By: #### 5 8410-2 ####[facility] LABCLIA [id number] [place] [address] [place] Platelets (Bld) [#/Vol] 111 10*3/uL Low 150-400 [facility] Comment on above: Order Comment: Speci men Type: BLOOD SPECIMENOrdering Facility: [facility] Address: [address] Performed By: #### 5 8410-2 ####[facility] LABCLIA [id number] [place] [address] [place] RBC (Bld) [#/Vol] 4.26 10*6/uL Normal 4.20-6.00 [facility] Comment on above: Order Comment: Speci men Type: BLOOD SPECIMENOrdering Facility: [facility] Address: [address] Performed By: #### 5 8410-2 ####[facility] LABCLIA [id number] [place] [address] [place] WBC (Bld) [#/Vol] 4.79 10*3/uL Normal 3.70-11.00 [facility] Comment on above: Order Comment: Speci men Type: BLOOD SPECIMENOrdering Facility: [facility] Address: [address] [place], [place] [address] Performed By: #### 5 8410-2 ####[facility] LABCLIA [id number] [place] [address] [place] CONSULTon 11-24-2022 CONSULT Normal [facility] CONSULT Normal [facility] CONSULT PROGon 11-24-2022 CONSULT PROG Normal [facility] Comprehensive metabolic 2000 panelon 11-24-2022 Albumin [Mass/Vol] 3.3 g/dL Low 3.9-4.9 [facility] Comment on above: Order Comment: Speci men Type: BLOOD SPECIMENOrdering Facility: [facility] Address: [address] [place], [place] [address] Performed By: #### 1 9123-9, 2777-1, 50870-4 ####[facility] LABCLIA [id number] [place] [address] [place] ALP [Catalytic activity/Vol] 91 U/L Normal 38-113 [facility] Comment on above: Order Comment: Speci men Type: BLOOD SPECIMENOrdering Facility: [facility] Address: [address] [place], [place] [address] Performed By: #### 1 9123-9, 27704-18, 13475-0 ####[facility] LABCLIA [id number] [address] ALT [Catalytic activity/Vol] U/L Low 10-54 [facility] Comment on above: Order Comment: Speci men Type: BLOOD SPECIMENOrdering Facility: [facility] Address: [address] [place], [place] [address] Result Comment: Resu lt rechecked. Performed By: #### 1 9123-9, 2776-10, 36009-8 ####[facility] LABCLIA [id number] [address] STATES OF [facility] Anion gap [Moles/Vol] 8 mmol/L Low 9-18 [facility] Comment on above: Order Comment: Speci men Type: BLOOD SPECIMENOrdering Facility: [facility] Address: [address] [place], [place] [address] Performed By: #### 1 9123-9, 2776-10, 98118-4 ####[facility] LABCLIA [id number] [address] AST [Catalytic activity/Vol] 9 U/L Low 14-40 [facility] Comment on above: Order Comment: Speci men Type: BLOOD SPECIMENOrdering Facility: [facility] Address: [address] [place], [place] [address] Performed By: #### 1 9123-9, 27704-18, 06592-8 ####[facility] LABCLIA [id number] [address] [place] Bilirubin [Mass/Vol] 0.2 mg/dL Normal 0.2-1.3 [facility] Comment on above: Order Comment: Speci men Type: BLOOD SPECIMENOrdering Facility: [facility] Address: [address] [place] [address] Performed By: #### 1 9123-9, 2776-10, ####[facility] LABCLIA [id number] [facility]ALL[facility] AVENUEIN[facility] VAL[facility] [address] [place] Calcium [Mass/Vol] 8.3 mg/dL Low 8.5-10.2 [facility] Comment on above: Order Comment: Speci men Type: BLOOD SPECIMENOrdering Facility: [facility] Address: [address] [place] [address] Performed By: #### 1 9123-9, 2776-10, ####[facility] LABCLIA [id number] [place] [address] [place] Chloride [Moles/Vol] 110 mmol/L High 97-105 [facility] Comment on above: Order Comment: Speci men Type: BLOOD SPECIMENOrdering Facility: [facility] Address: [address] [place] [address] Performed By: #### 1 9123-9, 2776-10, ####[facility] LABCLIA [id number] [facility] [place] [address] [place] CO2 [Moles/Vol] 24 mmol/L Normal 22-30 [facility] Comment on above: Order Comment: Speci men Type: BLOOD SPECIMENOrdering Facility: [facility] Address: [address] [place], [place] [address] Performed By: #### 1 9123-9, 2776-10, ####[facility] LABCLIA [id number] [facility] [place] [address] [place] Creatinine [Mass/Vol] 0.94 mg/dL Normal 0.73-1.22 [facility] Comment on above: Order Comment: Speci men Type: BLOOD SPECIMENOrdering Facility: [facility] Address: [address] [address] Performed By: #### 1 9123-9, 2777-1, 36929-1 ####[facility] LABCLIA [id number] [place] [address] [place] ESTIMATED GLOMERULAR FILTRATION RATE 91 mL/min/1.73m??? Normal >=60 [facility] Comment on above: Order Comment: Chaz joseline Type: BLOOD SPECIMENOrdering Facility: [facility] Address: [address] [address] Result Comment: Karina mated Glomerular Filtration Rate [...] GFR. Performed By: #### 1 9123-9, 2777-1, 97326-4 ####[facility] LABIA [id number] [place] [address] [place] Glucose [Mass/Vol] 68 mg/dL Low 74-99 [facility] Comment on above: Order Comment: Chaz trevizo Type: BLOOD SPECIMENOrdering Facility: [facility] Address: [address] [address] Result Comment: The [place] [employer] (ADA) provides guidance for cutoff [...] Standards of Medical Care in Diabetes 2016, [place] [employer]. Diabetes Care. 2016.39(Suppl 1). Performed By: #### 1 9123-9, 2777-1, 08909-2 ####[facility] LABCLIA [id number] [address] [address] [place] Potassium [Moles/Vol] 4.1 mmol/L Normal 3.7-5.1 [facility] Comment on above: Order Comment: Speci men Type: BLOOD SPECIMENOrdering Facility: [facility] Address: [address] Performed By: #### 1 9123-9, 2777-, 73917-0 ####[facility] LABIA [id number] [place] [address] [place] Protein [Mass/Vol] 5.7 g/dL Low 6.3-8.0 [facility] Comment on above: Order Comment: Speci men Type: BLOOD SPECIMENOrdering Facility: [facility] Address: [address] Performed By: #### 1 9123-9, 27704-18, 15267-0 ####[facility] [id number] [place] [address] [place] Sodium [Moles/Vol] 142 mmol/L Normal 136-144 [facility] Comment on above: Order Comment: Speci men Type: BLOOD SPECIMENOrdering Facility: [facility] Address: [address] Performed By: #### 1 9123-9, 27704-18, 97411-9 ####[facility] LABIA [id number] [place] [address] [place] Urea nitrogen [Mass/Vol] 22 mg/dL Normal 9-24 [facility] Comment on above: Order Comment: Speci men Type: BLOOD SPECIMENOrdering Facility: [facility] Address: [address] Performed By: #### 1 9123-9, 2777-1, 33813-8 ####[facility] LABCLIA [id number] [place] [address] [place] Magnesium SerPl-mCncon 11-24 Magnesium [Mass/Vol] 2.2 mg/dL Normal 1.7-2.3 [facility] Comment on above: Order Comment: Speci men Type: BLOOD SPECIMENOrdering Facility: [facility] Address: [address] [place] [address] Performed By: #### 1 9123-9, 2777-1, 68284-2 ####[facility] LABIA [id number] [address] [place] Phosphate SerPl-mCncon 11-24 Phosphate [Mass/Vol] 3.3 mg/dL Normal 2.7-4.8 [facility] Comment on above: Order Comment: Speci men Type: BLOOD SPECIMENOrdering Facility: [facility] Address: [address] [place] [address] Performed By: #### 1 9123-9, 2777-, 72157-5 ####[facility] LABIA [id number] [address] [place] CBC panel Auto (Bld)on 11-23 Erythrocyte distribution width (RBC) [Ratio] 16.8 % High 11.5-15.0 [facility] Comment on above: Order Comment: Speci men Type: BLOOD SPECIMENOrdering Facility: [facility] Address: [address] [place] [address] Performed By: #### 5 8410-2 ####[facility] LABIA [id number] [address] [place] Hematocrit (Bld) [Volume fraction] 35.7 % Low 39.0-51.0 [facility] Comment on above: Order Comment: Speci men Type: BLOOD SPECIMENOrdering Facility: [facility] Address: [address] Performed By: #### 5 8410-2 ####[facility] LABIA [id number] [place] [address] [place] Hemoglobin (Bld) [Mass/Vol] 11.3 g/dL Low 13.0-17.0 [facility] Comment on above: Order Comment: Speci men Type: BLOOD SPECIMENOrdering Facility: [facility] Address: [address] [place], [place] [address] Performed By: #### 5 8410-2 ####[facility] LABIA [id number] [place] [address] [place] MCH (RBC) [Entitic mass] 27.9 pg Normal 26.0-34.0 [facility] Comment on above: Order Comment: Speci men Type: BLOOD SPECIMENOrdering Facility: [facility] Address: [address] Performed By: #### 5 8410-2 ####[facility] [id number] [address] [place] MCHC (RBC) [Mass/Vol] 31.7 g/dL Normal 30.5-36.0 [facility] Comment on above: Order Comment: Speci men Type: BLOOD SPECIMENOrdering Facility: [facility] Address: [address] Performed By: #### 5 8410-2 ####[facility] LABIA [id number] [place] [address] [place] MCV (RBC) [Entitic vol] 88.1 fL Normal 80.0-100.0 [facility] Comment on above: Order Comment: Speci men Type: BLOOD SPECIMENOrdering Facility: [facility] Address: [address] [place], [place] [address] Performed By: #### 5 8410-2 ####[facility] LABCLIA [id number] [place] [address] [place] Nucleated RBC (Bld) [#/Vol] 10*3/uL Normal <0.01 [facility] Comment on above: Order Comment: Speci men Type: BLOOD SPECIMENOrdering Facility: [facility] Address: [address] [place] [address] Performed By: #### 5 8410-2 ####[facility] LABIA [id number] [place] [address] [place] Platelet mean volume (Bld) [Entitic vol] 12.7 fL Normal 9.0-12.7 [facility] Comment on above: Order Comment: Speci men Type: BLOOD SPECIMENOrdering Facility: [facility] Address: [address] [place] [address] Performed By: #### 5 8410-2 ####[facility] LABIA [id number] [place] [address] [place] Platelets (Bld) [#/Vol] 106 10*3/uL Low 150-400 [facility] Comment on above: Order Comment: Speci men Type: BLOOD SPECIMENOrdering Facility: [facility] Address: [address] [place] [address] Performed By: #### 5 8410-2 ####[facility] LABIA [id number] [place] [address] [place] RBC (Bld) [#/Vol] 4.05 10*6/uL Low 4.20-6.00 [facility] Comment on above: Order Comment: Speci men Type: BLOOD SPECIMENOrdering Facility: [facility] Address: [address] [place] [address] Performed By: #### 5 8410-2 ####[facility] LABIA [id number] [place] [address] [place] WBC (Bld) [#/Vol] 2.81 10*3/uL Low 3.70-11.00 [facility] Comment on above: Order Comment: Speci men Type: BLOOD SPECIMENOrdering Facility: [facility] Address: [address] [place] [address] Performed By: #### 5 8410-2 ####[facility] LABCLIA [id number] [place] [address] [place] Comprehensive metabolic 2000 panelon 11-23-2022 Albumin [Mass/Vol] 3.2 g/dL Low 3.9-4.9 [facility] Comment on above: Order Comment: Speci men Type: BLOOD SPECIMENOrdering Facility: [facility] Address: [address] [place] [address] Performed By: #### 1 9123-9, 2777-1, 68629-8 ####[facility] LABCLIA [id number] [place] [address] [place] ALP [Catalytic activity/Vol] 84 U/L Normal 38-113 [facility] Comment on above: Order Comment: Speci men Type: BLOOD SPECIMENOrdering Facility: [facility] Address: [address] [place] [address] Performed By: #### 1 9123-9, 2777-1, 85171-2 ####[facility] LABCLIA [id number] [place] [address] [place] ALT [Catalytic activity/Vol] U/L Low 10-54 [facility] Comment on above: Order Comment: Speci men Type: BLOOD SPECIMENOrdering Facility: [facility] Address: [address] [place], [place] [address] Performed By: #### 1 9123-9, 2777-1, 99650-2 ####[facility] LABCLIA [id number] [place] [id number] [place] Anion gap [Moles/Vol] 10 mmol/L Normal 9-18 [facility] Comment on above: Order Comment: Speci men Type: BLOOD SPECIMENOrdering Facility: [facility] Address: [address] [place], [place] [address] Performed By: #### 1 9123-9, 2776-10, ####[facility] LABCLIA [id number] [place] [address] [place] AST [Catalytic activity/Vol] 13 U/L Low 14-40 [facility] Comment on above: Order Comment: Speci men Type: BLOOD SPECIMENOrdering Facility: [facility] Address: [address] [place], [place] [address] Performed By: #### 1 9123-9, 2776-10, ####[facility] LABCLIA [id number] [place] [address] [place] Bilirubin [Mass/Vol] 0.2 mg/dL Normal 0.2-1.3 [facility] Comment on above: Order Comment: Speci men Type: BLOOD SPECIMENOrdering Facility: [facility] Address: [address] [place], [place] [address] Performed By: #### 1 9123-9, 2776-10, ####[facility] LABCLIA [id number] [place] [address] [place] Calcium [Mass/Vol] 8.3 mg/dL Low 8.5-10.2 [facility] Comment on above: Order Comment: Speci men Type: BLOOD SPECIMENOrdering Facility: [facility] Address: [address] [place], [place] [address] Performed By: #### 1 9123-9, 2776-10, ####[facility] LABCLIA [id number] [place] [address] [place] Chloride [Moles/Vol] 112 mmol/L High 97-105 [facility] Comment on above: Order Comment: Speci men Type: BLOOD SPECIMENOrdering Facility: [facility] Address: [address] [place] [address] Performed By: #### 1 9123-9, 2776-10, ####[facility] LABIA [id number] [place] [address] [place] CO2 [Moles/Vol] 21 mmol/L Low 22-30 [facility] Comment on above: Order Comment: Speci men Type: BLOOD SPECIMENOrdering Facility: [facility] Address: [address] [place] [address] Performed By: #### 1 9123-9, 2776-10, ####[facility] LABIA [id number] [place] [address] [place] Creatinine [Mass/Vol] 0.84 mg/dL Normal 0.73-1.22 [facility] Comment on above: Order Comment: Speci men Type: BLOOD SPECIMENOrdering Facility: [facility] Address: [address] [place] [address] Performed By: #### 1 9123-9, 2776-10, ####[facility] LABIA [id number] [place] [address] [place] ESTIMATED GLOMERULAR FILTRATION RATE 97 mL/min/1.73m??? Normal >=60 [facility] Comment on above: Order Comment: Speci men Type: BLOOD SPECIMENOrdering Facility: [facility] Address: [address] [place] [address] Result Comment: Karina mated Glomerular Filtration Rate [...] GFR. Performed By: #### 1 9123-9, 2776-10, ####[facility] LABCLIA [id number] [place] [address] [place] Glucose [Mass/Vol] 102 mg/dL High 74-99 [facility] Comment on above: Order Comment: Speci men Type: BLOOD SPECIMENOrdering Facility: [facility] Address: [address] [place] [address] Result Comment: The [place] [employer] (ADA) provides guidance for cutoff [...] Standards of Medical Care in Diabetes 2016, [place] [employer]. Diabetes Care. 2016.39(Suppl 1). Performed By: #### 1 9123-9, 2777-, 61431-8 ####[facility] LABIA [id number] [place] [address] [place] Potassium [Moles/Vol] 4.3 mmol/L Normal 3.7-5.1 [facility] Comment on above: Order Comment: Speci men Type: BLOOD SPECIMENOrdering Facility: [facility] Address: [address] [place], [place] [address] Performed By: #### 1 9123-9, 2777-, 14813-1 ####[facility] LABIA [id number] [place] [address] [place] Protein [Mass/Vol] 5.3 g/dL Low 6.3-8.0 [facility] Comment on above: Order Comment: Speci men Type: BLOOD SPECIMENOrdering Facility: [facility] Address: [address] [place] [address] Performed By: #### 1 9123-9, 2777-1, 22245-0 ####[facility] LABCLIA [id number] [place] [id number] [place] Sodium [Moles/Vol] 143 mmol/L Normal 136-144 [facility] Comment on above: Order Comment: Speci men Type: BLOOD SPECIMENOrdering Facility: [facility] Address: [address] [place], [place] [address] Performed By: #### 1 9123-9, 2777-, 03846-2 ####[facility] LABIA [id number] [place] [address] [place] Urea nitrogen [Mass/Vol] 21 mg/dL Normal 9-24 [facility] Comment on above: Order Comment: Speci men Type: BLOOD SPECIMENOrdering Facility: [facility] Address: [address] [place], [place] [address] Performed By: #### 1 9123-9, 2777-1, 73335-8 ####[facility] LABIA [id number] [place] [address] [place] Magnesium SerPl-mCncon 11-23 Magnesium [Mass/Vol] 2.0 mg/dL Normal 1.7-2.3 [facility] Comment on above: Order Comment: Speci men Type: BLOOD SPECIMENOrdering Facility: [facility] Address: [address] [place] [address] Performed By: #### 1 9123-9, 2777-, 90007-0 ####[facility] LABIA [id number] [place] [address] [place] Phosphate SerPl-mCncon 11-23 Phosphate [Mass/Vol] 2.8 mg/dL Normal 2.7-4.8 [facility] Comment on above: Order Comment: Speci men Type: BLOOD SPECIMENOrdering Facility: [facility] Address: [address] [place], [place] [address] Performed By: #### 1 9123-9, 2777-1, 82168-7 ####[facility] LABIA [id number] [place] [address] [place] THERAPY NTon 11-23-2022 THERAPY NT Normal [facility] CBC panel Auto (Bld)on 11-22 Erythrocyte distribution width (RBC) [Ratio] 16.4 % High 11.5-15.0 [facility] Comment on above: Order Comment: Speci men Type: BLOOD SPECIMENOrdering Facility: [facility] Address: [address] [address] Performed By: #### 5 8410-2 ####[facility] [id number] [address] [place] Hematocrit (Bld) [Volume fraction] 36.4 % Low 39.0-51.0 [facility] Comment on above: Order Comment: Speci men Type: BLOOD SPECIMENOrdering Facility: [facility] Address: [address] [address] Performed By: #### 5 8410-2 ####[facility] [id number] [address] [place] Hemoglobin (Bld) [Mass/Vol] 11.6 g/dL Low 13.0-17.0 [facility] Comment on above: Order Comment: Speci men Type: BLOOD SPECIMENOrdering Facility: [facility] Address: [address] Performed By: #### 5 8410-2 ####[facility] [id number] [place] [address] [place] MCH (RBC) [Entitic mass] 28.2 pg Normal 26.0-34.0 [facility] Comment on above: Order Comment: Speci men Type: BLOOD SPECIMENOrdering Facility: [facility] Address: [address] [address] Performed By: #### 5 8410-2 ####[facility] LABIA [id number] [address] STATES [facility] MCHC (RBC) [Mass/Vol] 31.9 g/dL Normal 30.5-36.0 [facility] Comment on above: Order Comment: Speci men Type: BLOOD SPECIMENOrdering Facility: [facility] Address: [address] Performed By: #### 5 8410-2 ####[facility] LABIA [id number] [place] [address] [place] MCV (RBC) [Entitic vol] 88.6 fL Normal 80.0-100.0 [facility] Comment on above: Order Comment: Speci men Type: BLOOD SPECIMENOrdering Facility: [facility] Address: [address] [place], [place] [address] Performed By: #### 5 8410-2 ####[facility] LABIA [id number] [place] [address] [place] Nucleated RBC (Bld) [#/Vol] 10*3/uL Normal <0.01 [facility] Comment on above: Order Comment: Speci men Type: BLOOD SPECIMENOrdering Facility: [facility] Address: [address] [place], [place] [address] Performed By: #### 5 8410-2 ####[facility] LABIA [id number] [place] [address] [place] Platelet mean volume (Bld) [Entitic vol] 12.5 fL Normal 9.0-12.7 [facility] Comment on above: Order Comment: Speci men Type: BLOOD SPECIMENOrdering Facility: [facility] Address: [address] [place], [place] [address] Performed By: #### 5 8410-2 ####[facility] LABIA [id number] [place] [address] [place] Platelets (Bld) [#/Vol] 115 10*3/uL Low 150-400 [facility] Comment on above: Order Comment: Speci men Type: BLOOD SPECIMENOrdering Facility: [facility] Address: [address] [place] [address] Performed By: #### 5 8410-2 ####[facility] LABCLIA [id number] [place] [address] [place] RBC (Bld) [#/Vol] 4.11 10*6/uL Low 4.20-6.00 [facility] Comment on above: Order Comment: Speci men Type: BLOOD SPECIMENOrdering Facility: [facility] Address: [address] [place] [address] Performed By: #### 5 8410-2 ####[facility] LABCLIA [id number] [place] [address] [place] WBC (Bld) [#/Vol] 2.29 10*3/uL Low 3.70-11.00 [facility] Comment on above: Order Comment: Speci men Type: BLOOD SPECIMENOrdering Facility: [facility] Address: [address] [place] [address] Performed By: #### 5 8410-2 ####[facility] LABCLIA [id number] [place] [address] [place] CK SerPl-cCncon 11-22-2022 CK [Catalytic activity/Vol] 27 U/L Low 51-298 [facility] Comment on above: Order Comment: Speci men Type: BLOOD SPECIMENOrdering Facility: [facility] Address: [address] [place] [address] Performed By: #### 1 9123-9, 17775-5, 2157-6, 2777-1 ####[facility] LABCLIA [id number] [place] [address] [place] Comprehensive metabolic 2000 panelon 11-22-2022 Albumin [Mass/Vol] 3.4 g/dL Low 3.9-4.9 [facility] Comment on above: Order Comment: Speci men Type: BLOOD SPECIMENOrdering Facility: [facility] Address: [address] [place] [address] Performed By: #### 1 9123-9, 32209-9, 2157-03, 2776- ####[facility] LABCLIA [id number] [place] [address] [place] ALP [Catalytic activity/Vol] 79 U/L Normal 38-113 [facility] Comment on above: Order Comment: Speci men Type: BLOOD SPECIMENOrdering Facility: [facility] Address: [address] [place] [address] Performed By: #### 1 9123-9, 66253-7, 2157-03, 2776-10 ####[facility] LABCLIA [id number] [address] [place] ALT [Catalytic activity/Vol] U/L Low 10-54 [facility] Comment on above: Order Comment: Speci men Type: BLOOD SPECIMENOrdering Facility: [facility] Address: [address] [place] [address] Result Comment: Resu lt rechecked. Performed By: #### 1 9123-9, 92928-2, 2157-03, 2776-10 ####[facility] LABIA [id number] [place] [address] [place] Anion gap [Moles/Vol] 10 mmol/L Normal 9-18 [facility] Comment on above: Order Comment: Speci men Type: BLOOD SPECIMENOrdering Facility: [facility] Address: [address] [place] [address] Performed By: #### 1 9123-9, 61500-5, 2157-03, 2776- ####[facility] LABCLIA [id number] [place] [address] [place] AST [Catalytic activity/Vol] 11 U/L Low 14-40 [facility] Comment on above: Order Comment: Speci men Type: BLOOD SPECIMENOrdering Facility: [facility] Address: [address] [place] [address] Performed By: #### 1 9123-9, 78849-3, 2157-03, 2776-10 ####[facility] LABCLIA [id number] [place] [address] [place] Bilirubin [Mass/Vol] mg/dL Low 0.2-1.3 [facility] Comment on above: Order Comment: Speci men Type: BLOOD SPECIMENOrdering Facility: [facility] Address: [address] [place] [address] Performed By: #### 1 9123-9, 70871-5, 2157-03, 2776-10 ####[facility] LABCLIA [id number] [place] [address] [place] Calcium [Mass/Vol] 8.7 mg/dL Normal 8.5-10.2 [facility] Comment on above: Order Comment: Speci men Type: BLOOD SPECIMENOrdering Facility: [facility] Address: [address] [place] [address] Performed By: #### 1 9123-9, 86746-6, 2157-03, 2776-10 ####[facility] LABCLIA [id number] [place] [address] [place] Chloride [Moles/Vol] 109 mmol/L High 97-105 [facility] Comment on above: Order Comment: Speci men Type: BLOOD SPECIMENOrdering Facility: [facility] Address: [address] [place] [address] Performed By: #### 1 9123-9, 43614-5, 2157-03, 2776-10 ####[facility] LABCLIA [id number] [place] [address] [place] CO2 [Moles/Vol] 23 mmol/L Normal 22-30 [facility] Comment on above: Order Comment: Speci men Type: BLOOD SPECIMENOrdering Facility: [facility] Address: [address] [place] [address] Performed By: #### 1 9123-9, 41909-8, 2157-03, 2776-10 ####[facility] LABIA [id number] [place] [address] [place] Creatinine [Mass/Vol] 0.95 mg/dL Normal 0.73-1.22 [facility] Comment on above: Order Comment: Speci men Type: BLOOD SPECIMENOrdering Facility: [facility] Address: [address] [place] [address] Performed By: #### 1 9123-9, 91108-4, 2157-03, 2776-10 ####[facility] [id number] [place] [address] [place] ESTIMATED GLOMERULAR FILTRATION RATE 89 mL/min/1.73m??? Normal >=60 [facility] Comment on above: Order Comment: Speci men Type: BLOOD SPECIMENOrdering Facility: [facility] Address: [address] [place] [address] Result Comment: Karina mated Glomerular Filtration Rate [...] actual GFR. Performed By: #### 1 9123-9, 41690-4, 2157-03, 2776-10 ####[facility] LABIA [id number] [place] [id number] [place] Glucose [Mass/Vol] 101 mg/dL High 74-99 [facility] Comment on above: Order Comment: Speci men Type: BLOOD SPECIMENOrdering Facility: [facility] Address: [address] [place], [place] [address] Result Comment: The [place] [employer] (ADA) provides guidance for cutoff [...] Standards of Medical Care in Diabetes 2016, [place] [employer]. Diabetes Care. 2016.39(Suppl 1). Performed By: #### 1 9123-9, 90888-5, 2157-03, 2776-10 ####[facility] LABCLIA [id number] [place] [address] [place] Potassium [Moles/Vol] 3.9 mmol/L Normal 3.7-5.1 [facility] Comment on above: Order Comment: Princessi joseline Type: BLOOD SPECIMENOrdering Facility: [facility] Address: [address] [place], [place] [address] Performed By: #### 1 9123-9, 69216-6, 2157-03, 2776-10 ####[facility] LABCLIA [id number] [place] [id number] [place] Protein [Mass/Vol] 5.4 g/dL Low 6.3-8.0 [facility] Comment on above: Order Comment: Speci men Type: BLOOD SPECIMENOrdering Facility: [facility] Address: [address] [place], [place] [address] Performed By: #### 1 9123-9, 41141-8, 2157-03, 2776-10 ####[facility] LABCLIA [id number] [place] [address] [place] Sodium [Moles/Vol] 142 mmol/L Normal 136-144 [facility] Comment on above: Order Comment: Speci men Type: BLOOD SPECIMENOrdering Facility: [facility] Address: [address] [place] [address] Performed By: #### 1 9123-9, 52595-3, 2157-03, 2776-10 ####[facility] [id number] [place] [address] [place] Urea nitrogen [Mass/Vol] 19 mg/dL Normal 9-24 [facility] Comment on above: Order Comment: Speci men Type: BLOOD SPECIMENOrdering Facility: [facility] Address: [address] [place] [address] Performed By: #### 1 9123-9, 10202-3, 2157-03, 2776-10 ####[facility] [id number] [place] [address] [place] Magnesium SerPl-mCncon 11-22 Magnesium [Mass/Vol] 2.2 mg/dL Normal 1.7-2.3 [facility] Comment on above: Order Comment: Speci men Type: BLOOD SPECIMENOrdering Facility: [facility] Address: [address] [place] [address] Performed By: #### 1 9123-9, 90640-6, 2157-03, 2776-10 ####[facility] [id number] [place] [address] [place] PT panel Coag (PPP)on 2022 INR Coag (PPP) [Relative time] 1.0 {INR} Normal 0.9-1.3 [facility] Comment on above: Order Comment: Speci men Type: BLOOD SPECIMENOrdering Facility: [facility] Address: [address] [place] [address] Result Comment: Bouchra min K Antagonist (VKA) Therapeutic Range: INR 2 to 3 (Target INR of 2.5)Note: For patients treated with VKA drugs, such as warfarin, the [place] [employer] 2012 Guideline recommends [...] al. Chest 2012, 141:7S-47SNishmercy RA, et al. [facility] 2017, 70: 252-289 Performed By: #### 3 4528-0 ####[facility] LABIA [id number] [place] [address] [place] PT Coag (PPP) [Time] 10.1 s Normal 9.7-13.0 [facility] Comment on above: Order Comment: Speci men Type: BLOOD SPECIMENOrdering Facility: [facility] Address: [address] [place] [address] Performed By: #### 3 4528-0 ####[facility] LABIA [id number] [place] [address] [place] Phosphate SerPl-mCncon 11-22 Phosphate [Mass/Vol] 3.5 mg/dL Normal 2.7-4.8 [facility] Comment on above: Order Comment: Speci men Type: BLOOD SPECIMENOrdering Facility: [facility] Address: [address] [place] [address] Performed By: #### 1 9123-9, 20970-6, 2157-6, 2777-1 ####[facility] LABCLIA [id number] [address] [place] THERAPY NTon 11-22-2022 THERAPY NT Normal [facility] ALLIED HEALTHon 11-21-2022 ALLIED HEALTH Normal [facility] ALLIED HEALTH Normal [facility] CONSULTon 11-21-2022 CONSULT Normal [facility] CONSULT PROGon 11-21-2022 CONSULT PROG Normal [facility] NUTRITIONon 11-21-2022 NUTRITION Normal [facility] THERAPY NTon 11-21-2022 THERAPY NT Normal [facility] 25(OH)D3 SerPl-mCncon 2022 25-hydroxyvitamin D3 [Mass/Vol] 15.0 ng/mL Low 31.0-80.0 [facility] Comment on above: Order Comment: Speci men Type: BLOOD SPECIMENOrdering Facility: [facility] Address: [address] [place] [address] Result Comment: Clas sification of 25 OH Vitamin D status:Deficiency/Insufficiency: < or = 30 ng/ml.Sufficiency/Optimal Levels: 31-80 ng/mLToxicity: > 100 ng/mL.Test performed by chemiluminescent immunoassay. Performed By: #### 1 989-3 ####[facility] LABCLIA [id number] [address] [place] CBC W Auto Differential pane l (Bld)on 11-20-2022 Basophils (Bld) [#/Vol] 10*3/uL Normal <0.11 [facility] Comment on above: Order Comment: Speci men Type: BLOOD SPECIMENOrdering Facility: [facility] Address: [address] [place] [address] Performed By: #### 5 8410-2, 03754-7, 50856-1 ####[facility] [id number] [address] STATES [facility] Basophils/100 WBC (Bld) 0.2 % Normal [facility] Comment on above: Order Comment: Speci men Type: BLOOD SPECIMENOrdering Facility: [facility] Address: [address] [place] [address] Performed By: #### 5 8410-2, 88237-2, 58563-9 ####[facility] LABIA [id number] [place] [address] [place] Eosinophils (Bld) [#/Vol] 0.08 10*3/uL Normal <0.46 [facility] Comment on above: Order Comment: Speci men Type: BLOOD SPECIMENOrdering Facility: [facility] Address: [address] Performed By: #### 5 8410-2, 35002-2, 77481-0 ####[facility] LABIA [id number] [place] [address] [place] Eosinophils/100 WBC (Bld) 1.8 % Normal [facility] Comment on above: Order Comment: Speci men Type: BLOOD SPECIMENOrdering Facility: [facility] Address: [address] [place], [place] [address] Performed By: #### 5 8410-2, 09560-3, 35490-6 ####[facility] LABIA [id number] [place] [address] [place] Immature granulocytes (Bld) [#/Vol] 0.03 10*3/uL Normal <0.10 [facility] Comment on above: Order Comment: Speci men Type: BLOOD SPECIMENOrdering Facility: [facility] Address: [address] [place] [address] Performed By: #### 5 8410-2, 83874-0, 35959-1 ####[facility] LABIA [id number] [place] [address] [place] Immature granulocytes/100 WBC (Bld) 0.7 % Normal [facility] Comment on above: Order Comment: Speci men Type: BLOOD SPECIMENOrdering Facility: [facility] Address: [address] [place], [place] [address] Performed By: #### 5 8410-2, 76085-9, 75242-3 ####[facility] LABCLIA [id number] [place] [address] [place] Lymphocytes (Bld) [#/Vol] 0.74 10*3/uL Low 1.00-4.00 [facility] Comment on above: Order Comment: Speci men Type: BLOOD SPECIMENOrdering Facility: [facility] Address: [address] [place] [address] Performed By: #### 5 8410-2, 74547-2, 02090-3 ####[facility] LABIA [id number] [place] [address] [place] Lymphocytes/100 WBC (Bld) 16.4 % Normal [facility] Comment on above: Order Comment: Speci men Type: BLOOD SPECIMENOrdering Facility: [facility] Address: [address] [place], [place] [address] Performed By: #### 5 8410-2, 18414-1, 35296-5 ####[facility] LABIA [id number] [place] [address] [place] Monocytes (Bld) [#/Vol] 0.53 10*3/uL Normal <0.87 [facility] Comment on above: Order Comment: Speci men Type: BLOOD SPECIMENOrdering Facility: [facility] Address: [address] [place], [place] [address] Performed By: #### 5 8410-2, 68266-2, 81127-6 ####[facility] LABIA [id number] [place] [address] [place] Monocytes/100 WBC (Bld) 11.8 % Normal [facility] Comment on above: Order Comment: Speci men Type: BLOOD SPECIMENOrdering Facility: [facility] Address: [address] [place], [place] [address] Performed By: #### 5 8410-2, 94109-6, 67631-8 ####[facility] LABCLIA [id number] [address] [address] [place] Neutrophils (Bld) [#/Vol] 3.11 10*3/uL Normal 1.45-7.50 [facility] Comment on above: Order Comment: Speci men Type: BLOOD SPECIMENOrdering Facility: [facility] Address: [address] [place] [address] Performed By: #### 5 8410-2, 88449-3, 33438-3 ####[facility] LABIA [id number] [place] [address] [place] Neutrophils/100 WBC (Bld) 69.1 % Normal [facility] Comment on above: Order Comment: Speci men Type: BLOOD SPECIMENOrdering Facility: [facility] Address: [address] [place] [address] Performed By: #### 5 8410-2, 74879-4, 86770-6 ####[facility] LABIA [id number] [place] [address] [place] CBC panel Auto (Bld)on 11-20 Erythrocyte distribution width (RBC) [Ratio] 15.9 % High 11.5-15.0 [facility] Comment on above: Order Comment: Speci men Type: BLOOD SPECIMENOrdering Facility: [facility] Address: [address] [place] [address] Performed By: #### 5 8410-2, 92954-9, 37119-1 ####[facility] LABIA [id number] [place] [id number] [place] Hematocrit (Bld) [Volume fraction] 39.8 % Normal 39.0-51.0 [facility] Comment on above: Order Comment: Speci men Type: BLOOD SPECIMENOrdering Facility: [facility] Address: [address] [place], [place] [address] Performed By: #### 5 8410-2, 05981-0, 54246-8 ####[facility] LABIA [id number] [place] [address] [place] Hemoglobin (Bld) [Mass/Vol] 12.5 g/dL Low 13.0-17.0 [facility] Comment on above: Order Comment: Speci men Type: BLOOD SPECIMENOrdering Facility: [facility] Address: [address] [place], [place] [address] Performed By: #### 5 8410-2, 41904-7, 31360-8 ####[facility] LABIA [id number] [place] [address] [place] MCH (RBC) [Entitic mass] 27.9 pg Normal 26.0-34.0 [facility] Comment on above: Order Comment: Speci men Type: BLOOD SPECIMENOrdering Facility: [facility] Address: [address] [place], [place] [address] Performed By: #### 5 8410-2, 50429-5, 97468-2 ####[facility] [id number] [place] [address] [place] MCHC (RBC) [Mass/Vol] 31.4 g/dL Normal 30.5-36.0 [facility] Comment on above: Order Comment: Speci men Type: BLOOD SPECIMENOrdering Facility: [facility] Address: [address] [place] [address] Performed By: #### 5 8410-2, 04400-3, 57508-3 ####[facility] LABIA [id number] [address] [place] MCV (RBC) [Entitic vol] 88.8 fL Normal 80.0-100.0 [facility] Comment on above: Order Comment: Speci men Type: BLOOD SPECIMENOrdering Facility: [facility] Address: [address] [place], [place] [address] Performed By: #### 5 8410-2, 09247-5, 60191-2 ####[facility] LABCLIA [id number] [place] [id number] [place] Nucleated RBC (Bld) [#/Vol] 10*3/uL Normal <0.01 [facility] Comment on above: Order Comment: Speci men Type: BLOOD SPECIMENOrdering Facility: [facility] Address: [address] [place] [address] Performed By: #### 5 8410-2, 84283-5, 90749-3 ####[facility] LABIA [id number] [place] [address] [place] Platelet mean volume (Bld) [Entitic vol] 11.8 fL Normal 9.0-12.7 [facility] Comment on above: Order Comment: Speci men Type: BLOOD SPECIMENOrdering Facility: [facility] Address: [address] [place] [address] Performed By: #### 5 8410-2, 71281-5, 09539-8 ####[facility] LABIA [id number] [place] [address] [place] Platelets (Bld) [#/Vol] 138 10*3/uL Low 150-400 [facility] Comment on above: Order Comment: Speci men Type: BLOOD SPECIMENOrdering Facility: [facility] Address: [address] [place] [address] Result Comment: No c lot detected.Results checked and verified. Performed By: #### 5 8410-2, 19528-3, 82668-7 ####[facility] LABIA [id number] [place] [address] [place] RBC (Bld) [#/Vol] 4.48 10*6/uL Normal 4.20-6.00 [facility] Comment on above: Order Comment: Speci men Type: BLOOD SPECIMENOrdering Facility: [facility] Address: [address] [place], [place] [address] Performed By: #### 5 8410-2, 87659-8, 42509-0 ####[facility] LABCLIA [id number] [place] [address] [place] WBC (Bld) [#/Vol] 4.53 10*3/uL Normal 3.70-11.00 [facility] Comment on above: Order Comment: Speci men Type: BLOOD SPECIMENOrdering Facility: [facility] Address: [address] Performed By: #### 5 8410-2, 97633-8, 27122-5 ####[facility] LABIA [id number] [address] [facility] CONSULTon 11-20-2022 CONSULT Normal [facility] Calcium.ionized [Moles/Vol]o n 11-20-2022 Calcium.ionized (Bld) [Mass/Vol] 1.27 mmol/L Normal 1.08-1.30 [facility] Comment on above: Order Comment: Speci men Type: BLOOD SPECIMENOrdering Facility: [facility] Address: [address] Performed By: #### 1 995-0 ####[facility] LABIA [id number] [address] Calcium.ionized adjusted to pH 7.4 (Bld) [Moles/Vol] 1.23 mmol/L Normal 1.08-1.30 [facility] Comment on above: Order Comment: Speci men Type: BLOOD SPECIMENOrdering Facility: [facility] Address: [address] Performed By: #### 1 995-0 ####[facility] LABIA [id number] [place] [address] [place] Comprehensive metabolic 2000 panelon 11-20-2022 Albumin [Mass/Vol] 4.0 g/dL Normal 3.9-4.9 [facility] Comment on above: Order Comment: Speci men Type: BLOOD SPECIMENOrdering Facility: [facility] Address: [address] [place], [place] [address] Performed By: #### 3 3959-8, , ####[facility] LABCLIA [id number] [place] [address] [place] ALP [Catalytic activity/Vol] 90 U/L Normal 38-113 [facility] Comment on above: Order Comment: Speci men Type: BLOOD SPECIMENOrdering Facility: [facility] Address: [address] [place] [address] Performed By: #### 3 3959-8, , ####[facility] LABCLIA [id number] [place] [address] [place] ALT [Catalytic activity/Vol] 7 U/L Low 10-54 [facility] [facility] Comment on above: Order Comment: Speci men Type: BLOOD SPECIMENOrdering Facility: [facility] Address: [address] [place] [address] Performed By: #### 3 3959-8, , ####[facility] LABIA [id number] [place] [address] [place] Anion gap [Moles/Vol] 12 mmol/L Normal 9-18 [facility] Comment on above: Order Comment: Speci men Type: BLOOD SPECIMENOrdering Facility: [facility] Address: [address] [place], [place] [address] Performed By: #### 3 3959-8, , ####[facility] LABCLIA [id number] [place] [address] [place] AST [Catalytic activity/Vol] 11 U/L Low 14-40 [facility] Comment on above: Order Comment: Speci men Type: BLOOD SPECIMENOrdering Facility: [facility] Address: [address] [place] [address] Performed By: #### 3 3959-8, 37548-7, ####[facility] LABCLIA [id number] [place] [address] [place] Bilirubin [Mass/Vol] 0.2 mg/dL Normal 0.2-1.3 [facility] Comment on above: Order Comment: Speci men Type: BLOOD SPECIMENOrdering Facility: [facility] Address: [address] Performed By: #### 3 3959-8, , ####[facility] LABCLIA [id number] [place] [address] [place] Calcium [Mass/Vol] 8.9 mg/dL Normal 8.5-10.2 [facility] Comment on above: Order Comment: Speci men Type: BLOOD SPECIMENOrdering Facility: [facility] Address: [address] Performed By: #### 3 3959-8, , ####[facility] LABCLIA [id number] [place] [address] [place] Chloride [Moles/Vol] 110 mmol/L High 97-105 [facility] Comment on above: Order Comment: Speci men Type: BLOOD SPECIMENOrdering Facility: [facility] Address: [address] [place] [address] Performed By: #### 3 3959-8, , ####[facility] LABCLIA [id number] [place] [address] [place] CO2 [Moles/Vol] 20 mmol/L Low 22-30 [facility] Comment on above: Order Comment: Speci men Type: BLOOD SPECIMENOrdering Facility: [facility] Address: [address] Performed By: #### 3 3959-8, 44007-4, ####[facility] LABIA [id number] [address] STATES OF [facility] Creatinine [Mass/Vol] 0.95 mg/dL Normal 0.73-1.22 [facility] Comment on above: Order Comment: Chaz trevizo Type: BLOOD SPECIMENOrdering Facility: [facility] Address: [address] [place] [address] Performed By: #### 3 3959-8, , ####[facility] LABIA [id number] [address] STATES OF [facility] ESTIMATED GLOMERULAR FILTRATION RATE 89 mL/min/1.73m??? Normal >=60 [facility] Comment on above: Order Comment: Chaz trevizo Type: BLOOD SPECIMENOrdering Facility: [facility] Address: [address] [place] [address] Result Comment: Karina mated Glomerular Filtration Rate [...] GFR. Performed By: #### 3 3959-8, , ####[facility] LABIA [id number] [place] [id number] [place] Glucose [Mass/Vol] 74 mg/dL Normal 74-99 [facility] Comment on above: Order Comment: Chaz trevizo Type: BLOOD SPECIMENOrdering Facility: [facility] Address: [address] [place] [address] Result Comment: The [place] Diabetes Association (ADA) provides guidance for cutoff [...] Standards of Medical Care in Diabetes 2016, [place] [employer]. Diabetes Care. 2016.39(Suppl 1). Performed By: #### 3 3959-8, , ####[facility] LABCLIA [id number] [place] [address] [place] Potassium [Moles/Vol] 4.2 mmol/L Normal 3.7-5.1 [facility] Comment on above: Order Comment: Speci men Type: BLOOD SPECIMENOrdering Facility: [facility] Address: [address] [place] [address] Performed By: #### 3 3959-8, , ####[facility] LABCLIA [id number] [place] [address] [place] Protein [Mass/Vol] 6.2 g/dL Low 6.3-8.0 [facility] Comment on above: Order Comment: Speci men Type: BLOOD SPECIMENOrdering Facility: [facility] Address: [address] [place] [address] Performed By: #### 3 3959-8, , ####[facility] LABCLIA [id number] [place] [address] [place] Sodium [Moles/Vol] 142 mmol/L Normal 136-144 [facility] Comment on above: Order Comment: Speci men Type: BLOOD SPECIMENOrdering Facility: [facility] Address: [address] Performed By: #### 3 3959-8, , ####[facility] LABCLIA [id number] [place] [address] [place] Urea nitrogen [Mass/Vol] 26 mg/dL High 9-24 [facility] Comment on above: Order Comment: Speci men Type: BLOOD SPECIMENOrdering Facility: [facility] Address: [address] [place] [address] Performed By: #### 3 3959-8, 36234-4, 34124-1 ####[facility] LABCLIA [id number] [place] [address] [place] [id number] 11-20-2022 ECG01 Normal [facility] ED PROV NOTEon 11-20-2022 ED PROV NOTE Normal [facility] ED PROV NOTE Normal [facility] HISTORY PHYSICALon HISTORY PHYSICAL Normal [facility] LIPID PANEL, NONFASTINGon Cholesterol [Mass/Vol] 135 mg/dL Normal <200 [facility] Comment on above: Order Comment: Speci men Type: BLOOD SPECIMENOrdering Facility: [facility] Address: [address] [place] [address] Result Comment: <200 mg/dL, Desirable 200-239 mg/dL, Borderline high>239 mg/dL, High Performed By: #### L IPNF ####[facility] LABCLIA [id number] [place] [address] [place] HDL CHOLESTEROL, NF 35 mg/dL Low >39 [facility] Comment on above: Order Comment: Speci men Type: BLOOD SPECIMENOrdering Facility: [facility] Address: [address] [place], [place] [address] Result Comment: 40-5 9 mg/dL, Acceptable>59 mg/dL, High: Negative risk factor for coronary heart disease<40 mg/dL, Low: Positive risk factor for coronary heart disease Performed By: #### L IPNF ####[facility] LABCLIA [id number] [place] [address] [place] LDL CHOLESTEROL, NF 76 mg/dL Normal <100 [facility] Comment on above: Order Comment: Speci men Type: BLOOD SPECIMENOrdering Facility: [facility] Address: [address] [place] [address] Result Comment: <100 mg/dL, Optimal 100-129 mg/dL, Near optimal/above optimal 130-159 mg/dL, Borderline high 160-189 mg/dL, High>189 mg/dL, Very highSecondary prevention optimal LDL Cholesterol levels are recommended to be < 70 mg/dL Performed By: #### L IPNF ####[facility] LABCLIA [id number] [address] LDL/HDL RATIO, NF 2.17 mg/dL Normal <2.54 [facility] Comment on above: Order Comment: Chaz men Type: BLOOD SPECIMENOrdering Facility: [facility] Address: [address] [place] [address] Result Comment: Refe rence:1. National Cholesterol Education Program ATP III Guideline At-A-Glance Quick Desk Reference: National Heart, Lung, and Blood [place]. National Institutes of Health. 2001: NIH Publication No. 01-3305.2. An International Atherosclerosis Society position paper: global recommendations for the management of dyslipidemia: executive summary, Atherosclerosis. 2014: 232(2):410-413. Performed By: #### L IPNF ####[facility] LABCLIA [id number] [address] [place] NON HDL CHOL, NF 100 mg/dL Normal <130 [facility] Comment on above: Order Comment: Princessi joseline Type: BLOOD SPECIMENOrdering Facility: [facility] Address: [address] [place] [address] Result Comment: <130 mg/dL, Optimal 130-159 mg/dL, Near optimal/above optimal 160-189 mg/dL, Borderline high 190-219 mg/dL, High>219 mg/dL, Very highSecondary prevention optimal non HDL Cholesterol levels are recommended to be <100 mg/dL Performed By: #### L IPNF ####[facility] LABCLIA [id number] [place] [address] [place] T CHOL/HDL RATIO NF 3.86 mg/dL Normal <5.10 [facility] Comment on above: Order Comment: Speci men Type: BLOOD SPECIMENOrdering Facility: [facility] Address: [address] [place] [address] Performed By: #### L IPNF ####[facility] LABCLIA [id number] [place] [address] [place] TRIGLYCERIDES, NF 118 mg/dL Normal <150 [facility] Comment on above: Order Comment: Speci men Type: BLOOD SPECIMENOrdering Facility: [facility] Address: [address] [place] [address] Result Comment: <150 mg/dL, Normal 150-199 mg/dL, Borderline high 200-499 mg/dL, High>499 mg/dL, Very high Performed By: #### L IPNF ####[facility] LABCLIA [id number] [place] [address] [place] VLDL CHOLESTEROL, NF 24 mg/dL Normal <30 [facility] Comment on above: Order Comment: Speci men Type: BLOOD SPECIMENOrdering Facility: [facility] Address: [address] [place] [address] Performed By: #### L IPNF ####[facility] LABCLIA [id number] [place] [address] [place] Magnesium SerPl-mCncon 11-20 Magnesium [Mass/Vol] 2.1 mg/dL Normal 1.7-2.3 [facility] Comment on above: Order Comment: Speci men Type: BLOOD SPECIMENOrdering Facility: [facility] Address: [address] [place] [address] Performed By: #### 3 3959-8, 51314-3, 14944-9 ####[facility] LABCLIA [id number] [place] [address] [place] Prealb SerPl-mCncon 11-20-19 23 Prealbumin [Mass/Vol] 25 mg/dL Normal 17-36 [facility] Comment on above: Order Comment: Speci men Type: BLOOD SPECIMENOrdering Facility: [facility] Address: [address] [place] [address] Performed By: #### 1 4338-8 ####[facility] LABCLIA [id number] [place] [address] [place] Procalcitonin SerPl-mCncon 0 11-20-2022 Procalcitonin [Mass/Vol] 0.10 ng/mL High <0.09 [facility] Comment on above: Order Comment: Speci men Type: BLOOD SPECIMENOrdering Facility: [facility] Address: [address] [place] [address] Result Comment: For a guided interpretation of test results, please visit the Change in Procalcitonin Calculator, [email or web address]. Performed By: #### 3 3959-8, 36499-5, 13489-8 ####[facility] LABCLIA [id number] [address] [place] Retics #on 11-20-2022 Reticulocytes (Bld) [#/Vol] 0.05640 10*3/uL Normal 0.018-0.10 0 [facility] Comment on above: Order Comment: Speci men Type: BLOOD SPECIMENOrdering Facility: [facility] Address: [address] [place] [address] Performed By: #### 5 8410-2, 79232-6, 15650-2 ####[facility] LABCLIA [id number] [address] [place] Reticulocytes (Bld) [#/Vol]o n 11-20-2022 Reticulocytes/100 RBC (Bld) 1.4 % Normal 0.4-2.0 [facility] Comment on above: Order Comment: Speci men Type: BLOOD SPECIMENOrdering Facility: [facility] Address: [address] [place] [address] Performed By: #### 5 8410-2, 83349-4, 93070-4 ####[facility] LABCLIA [id number] [address] [place] SARS-CoV-2 RNA Resp Ql KELLIE+p robeon 11-20-2022 SARS-CoV-2 (COVID-19) RNA KELLIE+probe Ql (Resp) COVID 19 RESULT: Detected The method used is RT-PCR or an equivalent NAAT method. Reference Range(the expected result in uninfected individuals): Not detected Normal [facility] Comment on above: Performed By: #### 9 4500-6 ####[facility] LABIA [id number] [place] [address] [place] Urinalysis complete panel (U )on 11-20-2022 Bilirubin Ql (U) Negative Normal Negative [facility] Comment on above: Order Comment: Speci men Type: URINE SPECIMENOrdering Facility: [facility] Address: [address] [place] [address] Performed By: #### 2 4356-8 ####[facility] LABIA [id number] [place] [address] [place] Clarity (Unsp spec) Clear Normal Clear [facility] Comment on above: Order Comment: Speci men Type: URINE SPECIMENOrdering Facility: [facility] Address: [address] [place] [address] Performed By: #### 2 4356-8 ####[facility] LABIA [id number] [address] [place] Color (U) Yellow Normal Yellow [facility] Comment on above: Order Comment: Speci men Type: URINE SPECIMENOrdering Facility: [facility] Address: [address] [place] [address] Performed By: #### 2 4356-8 ####[facility] LABCLIA [id number] [address] [place] Glucose Test strip (U) [Mass/Vol] Negative Normal Trace, Negative [facility] Comment on above: Order Comment: Speci men Type: URINE SPECIMENOrdering Facility: [facility] Address: [address] [place] [address] Performed By: #### 2 4356-8 ####[facility] LABCLIA [id number] [place] [address] [place] Hemoglobin Ql (U) Negative Normal Negative, Trace [facility] Comment on above: Order Comment: Speci men Type: URINE SPECIMENOrdering Facility: [facility] Address: [address] [place] [address] Performed By: #### 2 4356-8 ####[facility] LABCLIA [id number] [place] [address] [place] Ketones Ql (U) Trace Normal Trace, Negative [facility] Comment on above: Order Comment: Speci men Type: URINE SPECIMENOrdering Facility: [facility] Address: [address] [place] [address] Performed By: #### 2 4356-8 ####[facility] LABCLIA [id number] [address] [place] Leukocyte esterase Test strip Ql (U) Negative Normal Negative, 25 Winter/mL [facility] Comment on above: Order Comment: Speci men Type: URINE SPECIMENOrdering Facility: [facility] Address: [address] [place], [place] [address] Performed By: #### 2 4356-8 ####[facility] LABCLIA [id number] [place] [address] [place] Nitrite Ql (U) Negative Normal Negative [facility] Comment on above: Order Comment: Speci men Type: URINE SPECIMENOrdering Facility: [facility] Address: [address] [place], [place] [address] Performed By: #### 2 4356-8 ####[facility] LABIA [id number] [address] STATES [facility] pH (U) 5.0 [pH] Normal 5.0-8.0 [facility] Comment on above: Order Comment: Speci men Type: URINE SPECIMENOrdering Facility: [facility] Address: [address] [place] [address] Performed By: #### 2 4356-8 ####[facility] LABIA [id number] [place] [address] [place] Protein (U) [Mass/Vol] Trace Normal Trace, Negative [facility] Comment on above: Order Comment: Speci men Type: URINE SPECIMENOrdering Facility: [facility] Address: [address] [place], [place] [address] Performed By: #### 2 4356-8 ####[facility] LABIA [id number] [place] [address] [place] RBC LM.HPF (Urine sed) [#/Area] 3-5 /HPF Abnormal 0-3 /HPF [facility] Comment on above: Order Comment: Speci men Type: URINE SPECIMENOrdering Facility: [facility] Address: [address] [place], [place] [address] Performed By: #### 2 4356-8 ####[facility] LABIA [id number] [place] [address] [place] Specific gravity (U) [Rel density] 1.020 Normal 1.005-1.03 0 [facility] Comment on above: Order Comment: Speci men Type: URINE SPECIMENOrdering Facility: [facility] Address: [address] [place], [place] [address] Performed By: #### 2 4356-8 ####[facility] LABIA [id number] [place] [address] [place] Urobilinogen Ql (U) Negative Normal Negative [facility] Comment on above: Order Comment: Speci men Type: URINE SPECIMENOrdering Facility: [facility] Address: [address] [place] [address] Performed By: #### 2 4356-8 ####[facility] LABIA [id number] [place] [address] [place] WBC LM.HPF (Urine sed) [#/Area] 0-5 /HPF Normal 0-5 /HPF [facility] Comment on above: Order Comment: Speci men Type: URINE SPECIMENOrdering Facility: [facility] Address: [address] [place] [address] Performed By: #### 2 4356-8 ####[facility] [id number] [place] [address] [place] XR CHEST 1V FRONTAL PORTon 0 11-20-2022 XR CHEST 1V FRONTAL PORT Normal [facility] CBC AUTO DIFFon 11-09-2022 BASO # 0.0 103/ul Normal 0.0-0.1 [facility] Comment on above: Performed By: #### C BC #### [facility] [address] [place] [address] Dr. Bruce Nicholas Basophils/100 WBC (Bld) 0.1 % Critically low 0.2-2.0 [facility] Comment on above: Performed By: #### C BC #### [facility] [address] [address] [address] Bruce Nicholas EO # 0.0 103/ul Normal 0.0-0.7 [facility] Comment on above: Performed By: #### C BC #### [facility] [address] [place] [address] Dr. Bruce Nicholas Eosinophils/100 WBC (Bld) 0.0 % Critically low 0.9-7.0 [facility] Comment on above: Performed By: #### C BC #### [facility] [address] [address] [address] Bruce Nicholas Erythrocyte distribution width (RBC) [Ratio] 16.0 % Critically high 11.0-15.0 [facility] Comment on above: Performed By: #### C BC #### [facility] [address] [place] [address] Dr. Bruce Nicholas Hematocrit (Bld) [Volume fraction] 36.6 % Critically low 42.0-54.0 [facility] Comment on above: Performed By: #### C BC #### [facility] [address] [place] [address] Dr. Bruce Nicholas Hemoglobin (Bld) [Mass/Vol] 12.3 g/dL Critically low 14.0-18.0 [facility] Comment on above: Performed By: #### C BC #### [facility] [address] [place] [address] Dr. Bruce Nicholas IG # 0.06 10e3/ul Critically high 0.00-0.03 [facility] Comment on above: Performed By: #### C BC #### [facility] [address] [place] [address] Dr. Bruce Nicholas IG % 0.7 % Critically high 0.0-0.5 [facility] Comment on above: Performed By: #### C BC #### [facility] [address] [place] [address] Dr. Bruce Nicholas LYMPH # 1.0 103/ul Critically low 1.2-3.8 [facility] Comment on above: Performed By: #### C BC #### [facility] [address] [place] [address] Dr. Bruce Nicholas Lymphocytes/100 WBC (Bld) 11.8 % Critically low 20.5-60.0 [facility] Comment on above: Performed By: #### C BC #### [facility] [address] [place] [address] Dr. Bruce Nicholas MANUAL DIFF REQ NO Normal [facility] Comment on above: Performed By: #### C BC #### [facility] [address] [address] [address] Bruce Nicholas MCH (RBC) [Entitic mass] 27.3 pg Normal 25.9-34.0 [facility] Comment on above: Performed By: #### C BC #### [facility] [address] [address] [address] Bruce Nicholas MCHC (RBC) [Mass/Vol] 33.6 g/dL Normal 29.9-35.2 [facility] Comment on above: Performed By: #### C BC #### [facility] [address] [address] [address] Bruce Nicholas MCV (RBC) [Entitic vol] 81.2 fL Normal 80.0-94.0 [facility] Comment on above: Performed By: #### C BC #### [facility] [address] [place] [address] Dr. Bruce Nicholas MONO # 0.2 103/ul Critically low 0.3-0.8 [facility] Comment on above: Performed By: #### C BC #### [facility] [address] [place] [address] Dr. Bruce Nicholas Monocytes/100 WBC (Bld) 3.0 % Normal 1.7-12.0 [facility] Comment on above: Performed By: #### C BC #### [facility] [address] [place] [address] Dr. Bruce Nicholas NEUT # 6.8 103/ul Critically high 1.4-6.5 [facility] Comment on above: Performed By: #### C BC #### [facility] [address] [place] [address] Dr. Bruce Nicholas Neutrophils/100 WBC (Bld) 84.4 % Critically high 43.0-75.0 [facility] Comment on above: Performed By: #### C BC #### [facility] [address] [place] [address] Dr. Bruce Nicholas Platelet mean volume (Bld) [Entitic vol] 11.6 fL Normal 9.5-13.5 [facility] Comment on above: Performed By: #### C BC #### [facility] [address] [address] [address] Bruce Nicholas PLT 206 103/ul Normal 150-450 [facility] Comment on above: Performed By: #### C BC #### [facility] [address] [address] [address] Bruce Nicholas RBC 4.51 106/ul Critically low 4.70-6.10 [facility] Comment on above: Performed By: #### C BC #### [facility] [address] [address] [address] Bruce Nicholas WBC 8.1 103/ul Normal 4.0-11.0 [facility] Comment on above: Performed By: #### C BC #### [facility] [address] [place] [address] Dr. Bruce Nicholas POINT OF CARE GLUCOSEon 10-20 Glucose [Mass/Vol] 134 mg/dL Critically high 74-106 [facility] Comment on above: Performed By: #### P OCGLUC #### [facility] [address] [address] [address] Bruce Nicholas PROF CHEM 8 (BAS METB)on Anion gap [Moles/Vol] 13.3 mmol/L Normal [facility] Comment on above: Performed By: #### P OCGLUC #### [facility] [address] [address] [address] Bruce Nicholas Calcium [Mass/Vol] 9.0 mg/dL Normal 8.5-10.1 [facility] Comment on above: Performed By: #### P OCGLUC #### [facility] [address] [address] [address] Bruce Nicholas Chloride [Moles/Vol] 105 mmol/L Normal 98-107 [facility] Comment on above: Performed By: #### P OCGLUC #### [facility] [address] [address] [address] Bruce Nicholas CO2 [Moles/Vol] 24.9 mmol/L Normal 21.0-32.0 [facility] Comment on above: Performed By: #### P OCGLUC #### [facility] [address] [address] [address] Bruce Nicholas Creatinine [Mass/Vol] 0.86 mg/dL Normal 0.70-1.30 [facility] [facility] Comment on above: Performed By: #### P OCGLUC #### [facility] [address] [address] [address] Bruce Nicholas EGFR-AF ARGENTINE >60 Normal >=60 [facility] Comment on above: Performed By: #### P OCGLUC #### [facility] [address] [address] [address] Bruce Nicholas EGFR-NON AF ARGENTINE >60 Normal >=60 [facility] Comment on above: Performed By: #### P OCGLUC #### [facility] [address] [address] [address] Bruce Nicholas Glucose [Mass/Vol] 127 mg/dL Critically high 74-106 [facility] Comment on above: Performed By: #### P OCGLUC #### [facility] [address] [address] [address] Bruce Nicholas Potassium [Moles/Vol] 4.2 mmol/L Normal 3.5-5.1 [facility] Comment on above: Performed By: #### P OCGLUC #### [facility] [address] [address] [address] Bruce Nicholas Sodium [Moles/Vol] 139 mmol/L Normal 136-145 [facility] Comment on above: Performed By: #### P OCGLUC #### [facility] [address] [address] [address] Bruce Nicholas Urea nitrogen [Mass/Vol] 30.0 mg/dL Critically high 7.0-18.0 [facility] Comment on above: Performed By: #### P OCGLUC #### [facility] [address] [address] [address] Bruce Nicholas Urea nitrogen/Creatinin e [Mass ratio] 34.9 mg/mg Normal [facility] Comment on above: Performed By: #### P OCGLUC #### [facility] [address] [place] [address] Dr. Bruce Nicholas CBC AUTO DIFFon 11-08-2022 BASO # 0.0 103/ul Normal 0.0-0.1 [facility] Comment on above: Performed By: #### C VDTBH #### [facility] [address] [place] [address] Dr. Bruce Nicholas Basophils/100 WBC (Bld) 0.1 % Critically low 0.2-2.0 [facility] Comment on above: Performed By: #### C VDTBH #### [facility] [address] [place] [address] Dr. Bruce Nicholas EO # 0.0 103/ul Normal 0.0-0.7 [facility] Comment on above: Performed By: #### C VDTBH #### [facility] [address] [place] [address] Dr. Bruce Nicholas Eosinophils/100 WBC (Bld) 0.0 % Critically low 0.9-7.0 [facility] Comment on above: Performed By: #### C VDTBH #### [facility] [address] [place] [address] Dr. Bruce Nicholas Erythrocyte distribution width (RBC) [Ratio] 15.8 % Critically high 11.0-15.0 [facility] Comment on above: Performed By: #### C VDTBH #### [facility] [address] [place] [address] Dr. Bruce Nicholas Hematocrit (Bld) [Volume fraction] 33.4 % Critically low 42.0-54.0 [facility] Comment on above: Performed By: #### C VDTBH #### [facility] [address] [place] [address] Dr. Bruce Nicholas Hemoglobin (Bld) [Mass/Vol] 11.5 g/dL Critically low 14.0-18.0 [facility] Comment on above: Performed By: #### C VDTBH #### [facility] [address] [place] [address] Dr. Bruce Nicholas IG # 0.05 10e3/ul Critically high 0.00-0.03 [facility] Comment on above: Performed By: #### C VDTBH #### [facility] [address] [place] [address] Dr. Bruce Nicholas IG % 0.5 % Normal 0.0-0.5 [facility] Comment on above: Performed By: #### C VDTBH #### [facility] [address] [place] [address] Dr. Bruce Nicholas LYMPH # 0.9 103/ul Critically low 1.2-3.8 [facility] Comment on above: Performed By: #### C VDTBH #### [facility] [address] [place] [address] Dr. Bruce Nicholas Lymphocytes/100 WBC (Bld) 9.6 % Critically low 20.5-60.0 [facility] Comment on above: Performed By: #### C VDTBH #### [facility] [address] [place] [address] Dr. Bruce Nicholas MANUAL DIFF REQ NO Normal [facility] Comment on above: Performed By: #### C VDTBH #### [facility] [address] [place] [address] Dr. Bruce Nicholas MCH (RBC) [Entitic mass] 27.5 pg Normal 25.9-34.0 [facility] Comment on above: Performed By: #### C VDTBH #### [facility] [address] [place] [address] Dr. Bruce Nicholas MCHC (RBC) [Mass/Vol] 34.4 g/dL Normal 29.9-35.2 [facility] Comment on above: Performed By: #### C VDTBH #### [facility] [address] [place] [address] Dr. Bruce Nicholas MCV (RBC) [Entitic vol] 79.9 fL Critically low 80.0-94.0 [facility] Comment on above: Performed By: #### C VDTBH #### [facility] [address] [place] [address] Dr. Bruce Nicholas MONO # 0.3 103/ul Normal 0.3-0.8 [facility] Comment on above: Performed By: #### C VDTBH #### [facility] [address] [place] [address] Dr. Bruce Nicholas Monocytes/100 WBC (Bld) 3.3 % Normal 1.7-12.0 [facility] Comment on above: Performed By: #### C VDTBH #### [facility] [address] [place] [address] Dr. Bruce Nicholas NEUT # 8.3 103/ul Critically high 1.4-6.5 [facility] Comment on above: Performed By: #### C VDTBH #### [facility] [address] [place] [address] Dr. Bruce Nicholas Neutrophils/100 WBC (Bld) 86.5 % Critically high 43.0-75.0 [facility] Comment on above: Performed By: #### C VDTBH #### [facility] [address] [place] [address] Dr. Bruce Nicholas Platelet mean volume (Bld) [Entitic vol] 12.1 fL Normal 9.5-13.5 [facility] Comment on above: Performed By: #### C VDTBH #### [facility] [address] [place] [address] Dr. Bruce Nicholas PLT 205 103/ul Normal 150-450 [facility] Comment on above: Performed By: #### C VDTBH #### [facility] [address] [place] [address] Dr. Bruce Nicholas RBC 4.18 106/ul Critically low 4.70-6.10 [facility] Comment on above: Performed By: #### C VDTBH #### [facility] [address] [place] [address] Dr. Bruce Nicholas WBC 9.6 103/ul Normal 4.0-11.0 [facility] Comment on above: Performed By: #### C VDTBH #### [facility] [address] [place] [address] Dr. Bruce Nicholas POINT OF CARE GLUCOSEon 10-20 Glucose [Mass/Vol] 121 mg/dL Critically high 74-106 [facility] Comment on above: Performed By: #### C VDTBH #### [facility] [address] [address] [address] Bruce Nicholas Glucose [Mass/Vol] 126 mg/dL Critically high 74-106 [facility] Comment on above: Performed By: #### C BC #### [facility] [address] [address] [address] Bruce Nicholas Glucose [Mass/Vol] 164 mg/dL Critically high 74-106 [facility] Comment on above: Performed By: #### C BC #### [facility] [address] [address] [address] Bruce Nicholas PROF CHEM 8 (BAS METB)on Anion gap [Moles/Vol] 14.2 mmol/L Normal [facility] Comment on above: Performed By: #### P OCGLUC #### [facility] [address] [place] [address] Dr. Bruce Nicholas Calcium [Mass/Vol] 8.9 mg/dL Normal 8.5-10.1 [facility] Comment on above: Performed By: #### P OCGLUC #### [facility] [address] [place] [address] Dr. Bruce Nicholas Chloride [Moles/Vol] 107 mmol/L Normal 98-107 [facility] Comment on above: Performed By: #### P OCGLUC #### [facility] [address] [place] [address] Dr. Bruce Nicholas CO2 [Moles/Vol] 22.8 mmol/L Normal 21.0-32.0 [facility] Comment on above: Performed By: #### P OCGLUC #### [facility] [address] [place] [address] Dr. Bruce Nicholas Creatinine [Mass/Vol] 0.94 mg/dL Normal 0.70-1.30 [facility] Comment on above: Performed By: #### P OCGLUC #### [facility] [address] [address] [address] Bruce Nicholas EGFR-AF ARGENTINE >60 Normal >=60 [facility] Comment on above: Performed By: #### P OCGLUC #### [facility] [address] [address] [address] Bruec Nicholas EGFR-NON AF ARGENTINE >60 Normal >=60 [facility] Comment on above: Performed By: #### P OCGLUC #### [facility] [address] [address] [address] Bruce Nicholas Glucose [Mass/Vol] 128 mg/dL Critically high 74-106 [facility] Comment on above: Performed By: #### P OCGLUC #### [facility] [address] [address] [address] Bruce Nicholas Potassium [Moles/Vol] 4.0 mmol/L Normal 3.5-5.1 [facility] Comment on above: Performed By: #### P OCGLUC #### [facility] [address] [address] [address] Bruce Nicholas Sodium [Moles/Vol] 140 mmol/L Normal 136-145 [facility] Comment on above: Performed By: #### P OCGLUC #### [facility] [address] [address] [address] Bruce Nicholas Urea nitrogen [Mass/Vol] 33.0 mg/dL Critically high 7.0-18.0 [facility] Comment on above: Performed By: #### P OCGLUC #### [facility] [address] [address] [address] Bruce Nicholas Urea nitrogen/Creatinin e [Mass ratio] 35.1 mg/mg Normal [facility] Comment on above: Performed By: #### P OCGLUC #### [facility] [address] [address] [address] Bruce Nicholas XR CHEST 2 Von [...] BC #### [facility] [address] [address] [address] Bruce Nicholas Basophils/100 WBC (Bld) 0.0 % Critically low 0.2-2.0 [facility] Comment on above: Performed By: #### C BC #### [facility] [address] [address] [address] Bruce Nicholas EO # 0.0 103/ul Normal 0.0-0.7 [facility] Comment on above: Performed By: #### C BC #### [facility] [address] [address] [address] Bruce Nicholas Eosinophils/100 WBC (Bld) 0.0 % Critically low 0.9-7.0 [facility] Comment on above: Performed By: #### C BC #### [facility] [address] [address] [address] Bruce Nicholas Erythrocyte distribution width (RBC) [Ratio] 16.1 % Critically high 11.0-15.0 [facility] Comment on above: Performed By: #### C BC #### [facility] [address] [address] [address] Bruce Nicholas Hematocrit (Bld) [Volume fraction] 36.3 % Critically low 42.0-54.0 [facility] Comment on above: Performed By: #### C BC #### [facility] [address] [address] [address] Bruce Nicholas Hemoglobin (Bld) [Mass/Vol] 11.5 g/dL Critically low 14.0-18.0 [facility] Comment on above: Performed By: #### C BC #### [facility] [address] [address] [address] Bruce Nicholas IG # 0.07 10e3/ul Critically high 0.00-0.03 [facility] Comment on above: Performed By: #### C BC #### [facility] [address] [address] [address] Bruce Nicholas IG % 0.6 % Critically high 0.0-0.5 [facility] Comment on above: Performed By: #### C BC #### [facility] [address] [address] [address] Bruce Nicholas LYMPH # 0.9 103/ul Critically low 1.2-3.8 [facility] Comment on above: Performed By: #### C BC #### [facility] [address] [address] [address] Bruce Nicholas Lymphocytes/100 WBC (Bld) 7.2 % Critically low 20.5-60.0 [facility] Comment on above: Performed By: #### C BC #### [facility] [address] [address] [address] Bruce Nicholas MANUAL DIFF REQ NO Normal [facility] Comment on above: Performed By: #### C BC #### [facility] [address] [address] [address] Bruce Nicholas MCH (RBC) [Entitic mass] 27.7 pg Normal 25.9-34.0 [facility] Comment on above: Performed By: #### C BC #### [facility] [address] [address] [address] Bruce Nicholas MCHC (RBC) [Mass/Vol] 31.7 g/dL Normal 29.9-35.2 [facility] Comment on above: Performed By: #### C BC #### [facility] [address] [address] [address] Bruce Nicholas MCV (RBC) [Entitic vol] 87.5 fL Normal 80.0-94.0 [facility] Comment on above: Performed By: #### C BC #### [facility] [address] [address] [address] Bruce Nicholas MONO # 0.3 103/ul Normal 0.3-0.8 [facility] Comment on above: Performed By: #### C BC #### [facility] [address] [address] [address] Bruce Nicholas Monocytes/100 WBC (Bld) 2.9 % Normal 1.7-12.0 [facility] Comment on above: Performed By: #### C BC #### [facility] [address] [address] [address] Bruce Nicholas NEUT # 10.6 103/ul Critically high 1.4-6.5 [facility] Comment on above: Performed By: #### C BC #### [facility] [address] [address] [address] Bruce Nicholas Neutrophils/100 WBC (Bld) 89.3 % Critically high 43.0-75.0 [facility] Comment on above: Performed By: #### C BC #### [facility] [address] [address] [address] Bruce Nicholas Platelet mean volume (Bld) [Entitic vol] 12.4 fL Normal 9.5-13.5 [facility] Comment on above: Performed By: #### C BC #### [facility] [address] [address] [address] Bruce Nicholas PLT 195 103/ul Normal 150-450 [facility] Comment on above: Performed By: #### C BC #### [facility] [address] [address] [address] Bruce Nicholas RBC 4.15 106/ul Critically low 4.70-6.10 [facility] Comment on above: Performed By: #### C BC #### [facility] [address] [address] [address] Bruce Nicholas WBC 11.9 103/ul Critically high 4.0-11.0 [facility] Comment on above: Performed By: #### C BC #### [facility] [address] [address] [address] Bruce Nicholas POINT OF CARE GLUCOSEon 10-20 Glucose [Mass/Vol] 145 mg/dL Critically high 74-106 [facility] Comment on above: Performed By: #### P OCGLUC #### [facility] [address] [address] [address] Bruce Nicholas Glucose [Mass/Vol] 139 mg/dL Critically high -106 [facility] Comment on above: Performed By: #### C BC #### [facility] [address] [place] [address] Dr. Bruce Nicholas Glucose [Mass/Vol] 122 mg/dL Critically high -106 [facility] Comment on above: Performed By: #### P OCGLUC #### [facility] [address] [address] [address] Bruce Nicholas PROF CHEM 8 (BAS METB)on Anion gap [Moles/Vol] 14.8 mmol/L Normal [facility] Comment on above: Performed By: #### C BC #### [facility] [address] [address] [address] Bruce Nicholas Calcium [Mass/Vol] 9.0 mg/dL Normal 8.5-10.1 [facility] Comment on above: Performed By: #### C BC #### [facility] [address] [place] [address] Dr. Bruce Nicholas Chloride [Moles/Vol] 107 mmol/L Normal 98-107 [facility] Comment on above: Performed By: #### C BC #### [facility] [address] [place] [address] Dr. Bruce Nicholas CO2 [Moles/Vol] 21.3 mmol/L Normal 21.0-32.0 [facility] Comment on above: Performed By: #### C BC #### [facility] [address] [address] [address] Bruce Nicholas Creatinine [Mass/Vol] 1.11 mg/dL Normal 0.70-1.30 [facility] Comment on above: Performed By: #### C BC #### [facility] [address] [address] [address] Bruce Nicholas EGFR-AF ARGENTINE >60 Normal >=60 [facility] Comment on above: Performed By: #### C BC #### [facility] [address] [address] [address] Bruce Nicholas EGFR-NON AF ARGENTINE >60 Normal >=60 [facility] Comment on above: Performed By: #### C BC #### [facility] [address] [place] [address] Dr. Bruce Nicholas Glucose [Mass/Vol] 158 mg/dL Critically high 74-106 [facility] Comment on above: Performed By: #### C BC #### [facility] [address] [place] [address] Dr. Bruce Nicholas Potassium [Moles/Vol] 4.1 mmol/L Normal 3.5-5.1 [facility] Comment on above: Performed By: #### C BC #### [facility] [address] [place] [address] Dr. Bruce Nicholas Sodium [Moles/Vol] 139 mmol/L Normal 136-145 [facility] Comment on above: Performed By: #### C BC #### [facility] [address] [place] [address] Dr. Bruce Nicholas Urea nitrogen [Mass/Vol] 28.0 mg/dL Critically high 7.0-18.0 [facility] Comment on above: Performed By: #### C BC #### [facility] [address] [place] [address] Dr. Bruce Nicholas Urea nitrogen/Creatinin e [Mass ratio] 25.2 mg/mg Normal [facility] Comment on above: Performed By: #### C BC #### [facility] [address] [place], [place] [id number] Dr. Bruce Nicholas CBC AUTO DIFFon 11-06-2022 BASO # 0.0 103/ul Normal 0.0-0.1 [facility] Comment on above: Performed By: #### C BC #### [facility] [address] [place] [address] Dr. Bruce Nicholas Basophils/100 WBC (Bld) 0.0 % Critically low 0.2-2.0 [facility] Comment on above: Performed By: #### C BC #### [facility] [address] [place] [address] Dr. Bruce Nicholas EO # 0.0 103/ul Normal 0.0-0.7 [facility] Comment on above: Performed By: #### C BC #### [facility] [address] [place] [address] Dr. Bruce Nicholas Eosinophils/100 WBC (Bld) 0.0 % Critically low 0.9-7.0 [facility] Comment on above: Performed By: #### C BC #### [facility] [address] [place] [address] Dr. Bruce Nicholas Erythrocyte distribution width (RBC) [Ratio] 15.8 % Critically high 11.0-15.0 [facility] Comment on above: Performed By: #### C BC #### [facility] [address] [place] [address] Dr. Bruce Nicholas Hematocrit (Bld) [Volume fraction] 37.1 % Critically low 42.0-54.0 [facility] Comment on above: Performed By: #### C BC #### [facility] [address] [place] [address] Dr. Bruce Nicholas Hemoglobin (Bld) [Mass/Vol] 11.7 g/dL Critically low 14.0-18.0 [facility] Comment on above: Performed By: #### C BC #### [facility] [address] [place] [address] Dr. Bruce Nicholas IG # 0.03 10e3/ul Normal 0.00-0.03 [facility] Comment on above: Performed By: #### C BC #### [facility] [address] [place] [address] Dr. Bruce Nicholas IG % 0.4 % Normal 0.0-0.5 [facility] Comment on above: Performed By: #### C BC #### [facility] [address] [place] [address] Dr. rBuce Nicholas LYMPH # 0.7 103/ul Critically low 1.2-3.8 [facility] Comment on above: Performed By: #### C BC #### [facility] [address] [place] [address] Dr. Bruce Nicholas Lymphocytes/100 WBC (Bld) 9.9 % Critically low 20.5-60.0 [facility] Comment on above: Performed By: #### C BC #### [facility] [address] [place] [address] Dr. Bruce Nicholas MANUAL DIFF REQ NO Normal [facility] Comment on above: Performed By: #### C BC #### [facility] [address] [place] [address] Dr. Bruce Nicholas MCH (RBC) [Entitic mass] 27.3 pg Normal 25.9-34.0 [facility] Comment on above: Performed By: #### C BC #### [facility] [address] [place] [address] Dr. Bruce Nicholas MCHC (RBC) [Mass/Vol] 31.5 g/dL Normal 29.9-35.2 [facility] Comment on above: Performed By: #### C BC #### [facility] [address] [place] [address] Dr. Bruce Nicholas MCV (RBC) [Entitic vol] 86.5 fL Normal 80.0-94.0 [facility] Comment on above: Performed By: #### C BC #### [facility] [address] [place] [address] Dr. Bruce Nicholas MONO # 0.1 103/ul Critically low 0.3-0.8 [facility] Comment on above: Performed By: #### C BC #### [facility] [address] [address] [address] Bruce Nicholas Monocytes/100 WBC (Bld) 1.9 % Normal 1.7-12.0 [facility] Comment on above: Performed By: #### C BC #### [facility] [address] [place] [address] Dr. Bruce Nicholas NEUT # 6.0 103/ul Normal 1.4-6.5 [facility] Comment on above: Performed By: #### C BC #### [facility] [address] [place] [address] Dr. Bruce Nicholas Neutrophils/100 WBC (Bld) 87.8 % Critically high 43.0-75.0 [facility] Comment on above: Performed By: #### C BC #### [facility] [address] [place] [address] Dr. Bruce Nicholas Platelet mean volume (Bld) [Entitic vol] 12.4 fL Normal 9.5-13.5 [facility] Comment on above: Performed By: #### C BC #### [facility] [address] [place] [address] Dr. Bruce Nicholas PLT 186 103/ul Normal 150-450 [facility] Comment on above: Performed By: #### C BC #### [facility] [address] [place] [address] Dr. Bruce Nicholas RBC 4.29 106/ul Critically low 4.70-6.10 [facility] Comment on above: Performed By: #### C BC #### [facility] [address] [place] [address] Dr. Brcue Nicholas WBC 6.9 103/ul Normal 4.0-11.0 [facility] Comment on above: Performed By: #### C BC #### [facility] [address] [place] [address] Dr. Bruce Nicholas POINT OF CARE GLUCOSEon 10-19 Glucose [Mass/Vol] 139 mg/dL Critically high 74-106 [facility] Comment on above: Performed By: #### P OCGLUC #### [facility] [address] [place] [address] Dr. Bruce Nicholas Glucose [Mass/Vol] 129 mg/dL Critically high 74-106 [facility] Comment on above: Performed By: #### P OCGLUC #### [facility] [address] [address] [address] Bruce Nicholas Glucose [Mass/Vol] 128 mg/dL Critically high 74-106 [facility] Comment on above: Performed By: #### P OCGLUC #### [facility] [address] [address] [address] Bruce Nicholas PROF CHEM 8 (BAS METB)on Anion gap [Moles/Vol] 17.3 mmol/L Normal [facility] Comment on above: Performed By: #### C BC #### [facility] [address] [place] [address] Dr. Bruce Nicholas Calcium [Mass/Vol] 9.0 mg/dL Normal 8.5-10.1 [facility] Comment on above: Performed By: #### C BC #### [facility] [address] [place] [address] Dr. Bruce Nicholas Chloride [Moles/Vol] 107 mmol/L Normal 98-107 [facility] Comment on above: Performed By: #### C BC #### [facility] [address] [place] [address] Dr. Bruce Nicholas CO2 [Moles/Vol] 20.4 mmol/L Critically low 21.0-32.0 [facility] Comment on above: Performed By: #### C BC #### [facility] [address] [place] [address] Dr. Bruce Nicholas Creatinine [Mass/Vol] 1.12 mg/dL Normal 0.70-1.30 [facility] Comment on above: Performed By: #### C BC #### [facility] [address] [place] [address] Dr. Bruce Nicholas EGFR-AF ARGENTINE >60 Normal >=60 [facility] Comment on above: Performed By: #### C BC #### [facility] [address] [place] [address] Dr. Bruce Nicholas EGFR-NON AF ARGENTINE >60 Normal >=60 [facility] Comment on above: Performed By: #### C BC #### [facility] [address] [address] [address] Bruce Nicholas Glucose [Mass/Vol] 184 mg/dL Critically high 74-106 [facility] Comment on above: Performed By: #### C BC #### [facility] [address] [address] [address] Bruce Nicholas Potassium [Moles/Vol] 3.7 mmol/L Normal 3.5-5.1 [facility] [place] Comment on above: Performed By: #### C BC #### [facility] [address] [place] [address] Dr. Bruec Nicholas Sodium [Moles/Vol] 141 mmol/L Normal 136-145 [facility] Comment on above: Performed By: #### C BC #### [facility] [address] [place] [address] Dr. Bruce Nicholas Urea nitrogen [Mass/Vol] 25.0 mg/dL Critically high 7.0-18.0 [facility] [place] Comment on above: Performed By: #### C BC #### [facility] [address] [place] [address] Dr. Bruce Nicholas Urea nitrogen/Creatinin e [Mass ratio] 22.3 mg/mg Normal [facility] [place] Comment on above: Performed By: #### C BC #### [facility] [address] [place] [address] Dr. Bruce Nicholas BNPon 11-05-2022 Natriuretic peptide B (Bld) [Mass/Vol] 131.0 pg/mL Normal <=900.0 [facility] [place] Comment on above: Performed By: #### C BC #### [facility] [address] [place] [address] Dr. Bruce Nicholas CARDIAC EAMON ADMITon 023 CK [Catalytic activity/Vol] 44 U/L Normal 39-308 [facility] [place] Comment on above: Performed By: #### C BC #### [facility] [address] [place] [address] Dr. Bruce Nicholas CK.MB [Mass/Vol] 1.08 ng/mL Normal <=3.60 [facility] Comment on above: Performed By: #### C BC #### [facility] [address] [place] [address] Dr. Bruce Nicholas HSTROP 5.2 pg/mL Normal 4.0-76.1 [facility] Comment on above: Result Comment: CUT- OFF POINTS HAVE BEEN ESTABLISHED BASED ON THE FOURTH UNIVERSAL DEFINITIONS OF MYOCARDIAL INFARCTION. THE UPPER REFERENCE LIMIT (URL) OF TROPONIN, DEFINED THE 99TH PERCENTILE OF cTnI DISTRIBUTION IN A REFERENCE POPULATION, HAS BEEN CONFIRMED THE DECISION THRESHOLD FOR [place] DIAGNOSIS. Performed By: #### C BC #### [facility] [address] [place] [address] Dr. Bruce Nicholas DAVID 57 ng/mL Normal 16-96 [facility] Comment on above: Performed By: #### C BC #### [facility] [address] [place] [address] Dr. Bruce Nicholas CBC AUTO DIFFon 11-05-2022 BASO # 0.0 103/ul Normal 0.0-0.1 [facility] [place] Comment on above: Performed By: #### C BC #### [facility] [address] [place] [address] Dr. Bruce Nicholas Basophils/100 WBC (Bld) 0.6 % Normal 0.2-2.0 [facility] Comment on above: Performed By: #### C BC #### [facility] [address] [place] [address] Dr. Bruce Nicholas EO # 0.1 103/ul Normal 0.0-0.7 [facility] Comment on above: Performed By: #### C BC #### [facility] [address] [place] [address] Dr. Bruce Nicholas Eosinophils/100 WBC (Bld) 1.3 % Normal 0.9-7.0 [facility] [place] Comment on above: Performed By: #### C BC #### [facility] [address] [place] [address] Dr. Bruce Nicholas Erythrocyte distribution width (RBC) [Ratio] 15.4 % Critically high 11.0-15.0 [facility] [place] Comment on above: Performed By: #### C BC #### [facility] [address] [place] [address] Dr. Bruce Nicholas Hematocrit (Bld) [Volume fraction] 44.9 % Normal 42.0-54.0 [facility] [place] Comment on above: Performed By: #### C BC #### [facility] [address] [place] [address] Dr. Bruce Nicholas Hemoglobin (Bld) [Mass/Vol] 14.0 g/dL Normal 14.0-18.0 [facility] [place] Comment on above: Performed By: #### C BC #### [facility] [address] [place] [address] Dr. Bruce Nicholas IG # 0.02 10e3/ul Normal 0.00-0.03 [facility] [place] Comment on above: Performed By: #### C BC #### [facility] [address] [place] [address] Dr. Bruce Nicholas IG % 0.3 % Normal 0.0-0.5 [facility] [place] Comment on above: Performed By: #### C BC #### [facility] [address] [place] [address] Dr. Bruce Nicholas LYMPH # 2.3 103/ul Normal 1.2-3.8 [facility] [place] Comment on above: Performed By: #### C BC #### [facility] [address] [place] [address] Dr. Bruce Nicholas Lymphocytes/100 WBC (Bld) 31.7 % Normal 20.5-60.0 [facility] [place] Comment on above: Performed By: #### C BC #### [facility] [address] [place] [address] Dr. Bruce Nicholas MANUAL DIFF REQ NO Normal [facility] Comment on above: Performed By: #### C BC #### [facility] [address] [place] [address] Dr. Bruce Nicholas MCH (RBC) [Entitic mass] 27.3 pg Normal 25.9-34.0 [facility] Comment on above: Performed By: #### C BC #### [facility] [address] [address] [address] Bruce Nicholas MCHC (RBC) [Mass/Vol] 31.2 g/dL Normal 29.9-35.2 [facility] [place] Comment on above: Performed By: #### C BC #### [facility] [address] [address] [address] Bruce Nicholas MCV (RBC) [Entitic vol] 87.5 fL Normal 80.0-94.0 [facility] [place] Comment on above: Performed By: #### C BC #### [facility] [address] [place] [address] Dr. Bruce Nicholas MONO # 0.5 103/ul Normal 0.3-0.8 [facility] [place] Comment on above: Performed By: #### C BC #### [facility] [address] [place] [address] Dr. Bruce Nicholas Monocytes/100 WBC (Bld) 7.6 % Normal 1.7-12.0 [facility] [place] Comment on above: Performed By: #### C BC #### [facility] [address] [place] [address] Dr. Bruce Nicholas NEUT # 4.2 103/ul Normal 1.4-6.5 [facility] [place] Comment on above: Performed By: #### C BC #### [facility] [address] [place] [address] Dr. Bruce Nicholas Neutrophils/100 WBC (Bld) 58.5 % Normal 43.0-75.0 [facility] [place] Comment on above: Performed By: #### C BC #### [facility] [address] [place] [address] Dr. Bruce Nicholas Platelet mean volume (Bld) [Entitic vol] 12.6 fL Normal 9.5-13.5 [facility] [place] Comment on above: Performed By: #### C BC #### [facility] [address] [place] [address] Dr. Bruce Nicholas PLT 211 103/ul Normal 150-450 [facility] Comment on above: Performed By: #### C BC #### [facility] [address] [place] [address] Dr. Bruce Nicholas RBC 5.13 106/ul Normal 4.70-6.10 [facility] [place] Comment on above: Performed By: #### C BC #### [facility] [address] [place] [address] Dr. Bruce Nicholas WBC 7.1 103/ul Normal 4.0-11.0 [facility] [place] Comment on above: Performed By: #### C BC #### [facility] [address] [place] [address] Dr. Bruce Nicholas CULTURE BLOODon 11-05-2022 Microscopic examination of blood, culture Culture Observations: NO GROWTH AT 5 DAYS. Normal [facility] [place] Comment on above: Performed By: #### C VDTBH #### [facility] [address] [place] [address] Dr. Bruce Nicholas Microscopic examination of blood, culture Culture Observations: NO GROWTH AT 5 DAYS. Normal [facility] [place] Comment on above: Performed By: #### B LDCX1 #### [facility] [address] [place] [address] Dr. Bruce Nicholas Covid-19 PCR ([facility])on 10-19 SARS-CoV-2 (COVID-19) RNA KELLIE+probe Ql (Unsp [...] for this test is supported by the [facility] Supervisor of Health and Human Service's declaration that [...] C VDTBH #### [facility] [address] [place] [address] Dr. Bruce Nicholas INFLUENZA A AND B AGon 11-05 [facility] SEE BELOW Normal [facility] [place] Comment on above: Result Comment: Nega tive for Flu A protein angiten. Infection due to Flu A cannot be ruled out. Flu A angiten in the sample may be below the detection limit of the test. Performed By: #### C BC #### [facility] [address] [place] [address] Dr. Bruce [facility] Normal [facility] [place] Comment on above: Result Comment: Nega tive for Flu B protein antigen. Infection due to Flu B cannot be ruled out. Flu B antigen in the sample may be below the detection limit of the test. Performed By: #### C BC #### [facility] [address] [place] [address] Dr. Bruce Nicholas INFLUENZA A AG Negative Normal NEGATIVE SEE COMMENT [facility] [place] Comment on above: Performed By: #### C BC #### [facility] [address] [place] [address] Dr. Bruce Nicholas INFLUENZA B AG Negative Normal NEGATIVE SEE COMMENT [facility] [place] Comment on above: Performed By: #### C BC #### [facility] [address] [place] [address] Dr. Bruce Nicholas POINT OF CARE GLUCOSEon 10-19 Glucose [Mass/Vol] 190 mg/dL Critically high 74-106 [facility] [place] [facility] Comment on above: Performed By: #### P OCGLUC #### [facility] [address] [place] [address] Dr. Bruce Nicholas Glucose [Mass/Vol] 129 mg/dL Critically high 74-106 [facility] [place] [facility] Comment on above: Performed By: #### C VDTBH #### [facility] [address] [place] [address] Dr. Bruce Nicholas Glucose [Mass/Vol] 110 mg/dL Critically high 74-106 [facility] [place] [facility] Comment on above: Performed By: #### C BC #### [facility] [address] [address] [address] Bruce Nicholas PROF CHEM 8 (BAS METB)on Anion gap [Moles/Vol] 16.0 mmol/L Normal [facility] [place] Comment on above: Performed By: #### C BC #### [facility] [address] [place] [address] Dr. Bruce Nicholas Calcium [Mass/Vol] 9.4 mg/dL Normal 8.5-10.1 [facility] Comment on above: Performed By: #### C BC #### [facility] [address] [place] [address] Dr. Bruce Nicholas Chloride [Moles/Vol] 106 mmol/L Normal 98-107 [facility] [place] Comment on above: Performed By: #### C BC #### [facility] [address] [place] [address] Dr. Bruce Nicholas CO2 [Moles/Vol] 25.2 mmol/L Normal 21.0-32.0 [facility] Comment on above: Performed By: #### C BC #### [facility] [address] [place] [address] Dr. Bruce Nicholas Creatinine [Mass/Vol] 1.09 mg/dL Normal 0.70-1.30 [facility] [place] Comment on above: Performed By: #### C BC #### [facility] [address] [place] [address] Dr. Bruce Nicholas EGFR-AF ARGENTINE >60 Normal >=60 [facility] Comment on above: Performed By: #### C BC #### [facility] [address] [place] [address] Dr. Bruce Nicholas EGFR-NON AF ARGENTINE >60 Normal >=60 [facility] [place] Comment on above: Performed By: #### C BC #### [facility] [address] [place] [address] Dr. Bruce Nicholas Glucose [Mass/Vol] 107 mg/dL Critically high 74-106 [facility] [place] [facility] Comment on above: Performed By: #### C BC #### [facility] [address] [place], [place] [address] Dr. Bruce Nicholas Potassium [Moles/Vol] 3.2 mmol/L Critically low 3.5-5.1 [facility] [place] Comment on above: Performed By: #### C BC #### [facility] [address] [place], [place] [address] Dr. Bruce Nicholas Sodium [Moles/Vol] 144 mmol/L Normal 136-145 [facility] Comment on above: Performed By: #### C BC #### [facility] [address] [address] [address] Bruce Nicholas Urea nitrogen [Mass/Vol] 20.0 mg/dL Critically high 7.0-18.0 [facility] [place] Comment on above: Performed By: #### C BC #### [facility] [address] [address] [address] Bruce Nicholas Urea nitrogen/Creatinin e [Mass ratio] 18.3 mg/mg Normal [facility] [place] Comment on above: Performed By: #### C BC #### [facility] [id number] Bruce Nicholas XR CHEST 1 Von [...] by: LIZETH MCDONOUGH Date: 2022-11-05 08:05 Normal [facility] [place] CT LSPINE WO CONon 2 CT LSPINE [...] by: DON MURRAY Date: 2022-10-09 13:29 Normal [facility] [place] POINT OF CARE GLUCOSEon 12-2 Glucose [Mass/Vol] 81 mg/dL Normal 74-106 [facility] Comment on above: Performed By: #### [facility] #### [facility] [address] [address] [address] Bruce Nicholas Glucose [Mass/Vol] 69 mg/dL Critically low 74-106 [facility] Comment on above: Performed By: #### C BC #### [facility] [address] [address] [address] Bruce Nicholas XR MYELOGRAM LSPINE EXPon [...] by: DON MURRAY Date: 2022-10-08 11:11 Normal [facility] [place] A1C with Estimated Average [facility] 09-03-2022 Glucose [Mass/Vol] 108 mg/dL Normal [facility] Comment on above: Order Comment: Reaso n for Exam Hyperglycemia Result Comment: PERF ORMED BY: [place] [address] PATHOLOGIST [employer] SIVAKUMAR PALACIOS M.D. Performed By: #### B MP #### [facility] [address] [place] [address] HbA1c (Bld) [Mass fraction] 5.4 % Normal 4.3-5.6 [facility] Comment on above: Order Comment: Reaso n for Exam Hyperglycemia Result Comment: Incr eased risk for diabetes: 5.7 - 6.4 diabetes: >6.4 glycemic control for adults with diabetes: <7.0 Performed By: #### B MP #### [facility] [address] [place] [address] Comprehensive Metabolic Pane lisy 09-03-2022 Albumin [Mass/Vol] 3.5 g/dL Normal 3.2-5.5 [facility] Comment on above: Order Comment: Reaso n for Exam Hyperlipidemia Performed By: #### S CAN CBC, LIPID, CMP, A1C WTH eA, TSH3 #### [facility] [address] [place] [address] [place] Albumin/Globulin [Mass ratio] 1.2 {ratio} Normal [facility] Comment on above: Order Comment: Reaso n for Exam Hyperlipidemia Performed By: #### S CAN CBC, LIPID, CMP, A1C WTH eA, TSH3 #### [facility] [address] [id number] [facility] ALP [Catalytic activity/Vol] 76 U/L Normal 32-92 [facility] Comment on above: Order Comment: Reaso n for Exam Hyperlipidemia Performed By: #### S CAN CBC, LIPID, CMP, A1C WTH eA, TSH3 #### [facility] [address] ALT [Catalytic activity/Vol] 5 U/L Low 10-60 [facility] Comment on above: Order Comment: Reaso n for Exam Hyperlipidemia Performed By: #### S CAN CBC, LIPID, CMP, A1C WTH eA, TSH3 #### [facility] [address] Anion gap [Moles/Vol] 6.6 mmol/L Normal 6.0-15.0 [facility] Comment on above: Order Comment: Reaso n for Exam Hyperlipidemia Performed By: #### S CAN CBC, LIPID, CMP, A1C WTH eA, TSH3 #### [facility] [address] [place] [address] [place] AST [Catalytic activity/Vol] 11 U/L Normal 10-42 [facility] Comment on above: Order Comment: Reaso n for Exam Hyperlipidemia Performed By: #### S CAN CBC, LIPID, CMP, A1C WTH eA, TSH3 #### [facility] [address] [place] [address] [place] Bilirubin [Mass/Vol] 0.4 mg/dL Normal 0.3-1.2 [facility] Comment on above: Order Comment: Reaso n for Exam Hyperlipidemia Performed By: #### S CAN CBC, LIPID, CMP, A1C WTH eA, TSH3 #### [facility] [address] Calcium [Mass/Vol] 9.2 mg/dL Normal 8.2-10.2 [facility] Comment on above: Order Comment: Reaso n for Exam Hyperlipidemia Performed By: #### S CAN CBC, LIPID, CMP, A1C WTH eA, TSH3 #### [facility] [address] Chloride [Moles/Vol] 112 mmol/L Normal 95-114 [facility] Comment on above: Order Comment: Reaso n for Exam Hyperlipidemia Performed By: #### S CAN CBC, LIPID, CMP, A1C WTH eA, TSH3 #### [facility] [address] CO2 [Moles/Vol] 26.0 mmol/L Normal 22.0-30.0 [facility] Comment on above: Order Comment: Reaso n for Exam Hyperlipidemia Performed By: #### S CAN CBC, LIPID, CMP, A1C WTH eA, TSH3 #### [facility] [address] Creatinine [Mass/Vol] 1.08 mg/dL Normal 0.64-1.27 [facility] Comment on above: Order Comment: Reaso n for Exam Hyperlipidemia Performed By: #### S CAN CBC, LIPID, CMP, A1C WTH eA, TSH3 #### [facility] [address] Estimated GFR ( Mirna > 60 [facility] Comment on above: Order Comment: Reaso n for Exam Hyperlipidemia Result Comment: GFR estimated reference range: According to KDOQI guidelines, <60 ml/min/1.73m2 is sufficient to diagnose a patient with chronic kidney disease. Performed By: #### S CAN CBC, LIPID, CMP, A1C WTH eA, TSH3 #### [facility] [address] [place] [address] [place] Estimated GFR (Non- Am > 60 [facility] Comment on above: Order Comment: Reaso n for Exam Hyperlipidemia Performed By: #### S CAN CBC, LIPID, CMP, A1C WTH eA, TSH3 #### [facility] [address] [place] [address] [place] Globulin (S) [Mass/Vol] 3.0 g/dL Normal [facility] Comment on above: Order Comment: Reaso n for Exam Hyperlipidemia Performed By: #### S CAN CBC, LIPID, CMP, A1C WTH eA, TSH3 #### [facility] [address] Glucose [Mass/Vol] 90 mg/dL Normal 70-100 [facility] Comment on above: Order Comment: Reaso n for Exam Hyperlipidemia Result Comment: [facility] Glucose Reference Range is dependent on time and content of last meal. Glucose of more than 200 mg/dL in a nonstressed, ambulatory subject supports the diagnosis of Diabetes Mellitus. ADA recommended reference range Performed By: #### S CAN CBC, LIPID, CMP, A1C WTH eA, TSH3 #### [facility] [address] Potassium [Moles/Vol] 4.6 mmol/L Normal 3.5-5.1 [facility] Comment on above: Order Comment: Reaso n for Exam Hyperlipidemia Performed By: #### S CAN CBC, LIPID, CMP, A1C WTH eA, TSH3 #### [facility] [address] [place] [address] [place] Protein [Mass/Vol] 6.5 g/dL Normal 6.1-7.9 [facility] Comment on above: Order Comment: Reaso n for Exam Hyperlipidemia Performed By: #### S CAN CBC, LIPID, CMP, A1C WTH eA, TSH3 #### [facility] [address] [id number] [place] Sodium [Moles/Vol] 140 mmol/L Normal 136-146 [facility] Comment on above: Order Comment: Reaso n for Exam Hyperlipidemia Performed By: #### S CAN CBC, LIPID, CMP, A1C WTH eA, TSH3 #### [facility] [address] [id number] [place] Urea nitrogen [Mass/Vol] 24 mg/dL High 9-23 [facility] Comment on above: Order Comment: Reaso n for Exam Hyperlipidemia Performed By: #### S CAN CBC, LIPID, CMP, A1C WTH eA, TSH3 #### [facility] [address] [place] [address] [place] Lipid Panelon 09-03-2022 Cholesterol [Mass/Vol] 98 mg/dL Low 140-200 [facility] Comment on above: Order Comment: Reaso n for Exam Hyperlipidemia Result Comment: Chol less than 200 mg/dl low risk Chol 201-239 mg/dl borderline risk Chol 240 mg/dl and greater high risk Performed By: #### S CAN CBC, LIPID, CMP, A1C [facility], TSH3 #### [facility] [address] [id number] [facility] Cholesterol in HDL [Mass/Vol] 34 mg/dL Normal 29-71 [facility] Comment on above: Order Comment: Reaso n for Exam Hyperlipidemia Result Comment: HDL CHOL ATP-III CLASSIFICATION Cardiovascular Risk HDL > or equal to 60 mg/dL LOW HDL < 40 mg/dL HIGH Performed By: #### S CAN CBC, LIPID, CMP, A1C [facility], TSH3 #### [facility] [address] [id number] [facility] Cholesterol.total/ Cholesterol in HDL [Mass ratio] 2.9 {ratio} Normal <5.0 [facility] Comment on above: Order Comment: Reaso n for Exam Hyperlipidemia Performed By: #### S CAN CBC, LIPID, CMP, A1C [facility], TSH3 #### [facility] [address] [id number] [facility] LDL Cholesterol,Calcul ated 49 mg/dL Normal 0-100 [facility] Comment on above: Order Comment: Reaso n for Exam Hyperlipidemia Result Comment: LDL ATP III CLASSIFICATION LDL less than 100 mg/dL Optimal LDL 100-129 mg/dL Near or above optimal LDL 130-159 mg/dL Borderline high LDL 160-189 mg/dL High LDL greater than 189 mg/dL Very high Performed By: #### S CAN CBC, LIPID, CMP, A1C [facility], TSH3 #### [facility] [address] [place] [address] [place] Triglyceride w/Reflex 77 mg/dL Normal 35-149 [facility] Comment on above: Order Comment: Reaso n [...] LIPID, CMP, A1C WT eA, TSH3 #### [facility] [address] VLDL CHOLESTEROL 15 mg/dL Normal [facility] Comment on above: Order Comment: Reaso n for Exam Hyperlipidemia Performed By: #### S CAN CBC, LIPID, CMP, A1C WT eA, TSH3 #### [facility] [address] Scan and CBCon 09-03-2022 Anisocytosis Ql (Bld) Slight Normal [facility] Comment on above: Order Comment: Reaso n for Exam Hyperlipidemia Performed By: #### B MP #### [address] Basophils (Bld) [#/Vol] 0.0 10*3/uL Normal 0.0-0.2 [facility] Comment on above: Order Comment: Reaso n for Exam Hyperlipidemia Performed By: #### B MP #### [address] Basophils/100 WBC (Bld) 0.4 % Normal . [facility] Comment on above: Order Comment: Reaso n for Exam Hyperlipidemia Performed By: #### B MP #### [address] Eosinophils (Bld) [#/Vol] 0.1 10*3/uL Normal 0.0-0.45 [facility] Comment on above: Order Comment: Reaso n for Exam Hyperlipidemia Performed By: #### B MP #### [address] Eosinophils/100 WBC (Bld) 0.9 % Normal . [facility] Comment on above: Order Comment: Reaso n for Exam Hyperlipidemia Performed By: #### B MP #### [address] Erythrocyte distribution width (RBC) [Ratio] 17.5 % High 12.0-14.8 [facility] Comment on above: Order Comment: Reaso n for Exam Hyperlipidemia Performed By: #### B MP #### [address] Hematocrit (Bld) [Volume fraction] 43.4 % Normal 38.8-50.0 [facility] Comment on above: Order Comment: Reaso n for Exam Hyperlipidemia Performed By: #### B MP #### [address] Hemoglobin (Bld) [Mass/Vol] 13.4 g/dL Normal 13.0-17.0 [facility] Comment on above: Order Comment: Reaso n for Exam Hyperlipidemia Performed By: #### B MP #### [address] Large Platelets Slight Normal [facility] Comment on above: Order Comment: Reaso n for Exam Hyperlipidemia Result Comment: PERF ORMED BY: [place] [address] PATHOLOGIST [employer] SIVAKUMAR PALACIOS M.D. Performed By: #### B MP #### [address] Lymphocytes (Bld) [#/Vol] 1.3 10*3/uL Normal 1.00-4.8 [facility] Comment on above: Order Comment: Reaso n for Exam Hyperlipidemia Performed By: #### B MP #### [address] Lymphocytes/100 WBC (Bld) 20.1 % Normal . [facility] Comment on above: Order Comment: Reaso n for Exam Hyperlipidemia Performed By: #### B MP #### [address] MCH (RBC) [Entitic mass] 26.4 pg Low 27.5-35.2 [facility] Comment on above: Order Comment: Reaso n for Exam Hyperlipidemia Performed By: #### B MP #### [place] [address] [place] MCV (RBC) [Entitic vol] 85.8 fL Normal 83.5-101 [facility] Comment on above: Order Comment: Reaso n for Exam Hyperlipidemia Performed By: #### B MP #### [facility] [address] Mean Corpuscular HGB Conc 30.8 g/dL Low 32.5-35.6 [facility] Comment on above: Order Comment: Reaso n for Exam Hyperlipidemia Performed By: #### B MP #### [facility] [facility] [address] [place] [address] [place] Monocytes (Bld) [#/Vol] 0.5 10*3/uL Normal 0.0-0.8 [facility] Comment on above: Order Comment: Reaso n for Exam Hyperlipidemia Performed By: #### B MP #### [facility] [address] [place] [address] [place] Monocytes/100 WBC (Bld) 7.5 % Normal . [facility] Comment on above: Order Comment: Reaso n for Exam Hyperlipidemia Performed By: #### B MP #### [place] [address] [place] Neutrophils (Bld) [#/Vol] 4.7 10*3/uL Normal 1.8-7.7 [facility] Comment on above: Order Comment: Reaso n for Exam Hyperlipidemia Performed By: #### B MP #### [place] [address] [place] Neutrophils/100 WBC (Bld) 71.1 % Normal . [facility] Comment on above: Order Comment: Reaso n for Exam Hyperlipidemia Performed By: #### B MP #### [facility] [address] [place] [address] [place] Nucleated RBC/100 WBC (Bld) [Ratio] 0.1 % Normal 0-0.5 [facility] Comment on above: Order Comment: Reaso n for Exam Hyperlipidemia Performed By: #### B MP #### [facility] [address] [place] [address] [place] Platelet Estimate Normal Normal Normal [facility] Comment on above: Order Comment: Reaso n for Exam Hyperlipidemia Performed By: #### B MP #### [address] Platelet mean volume (Bld) [Entitic vol] 11.8 fL High 6.6-10.1 [facility] Comment on above: Order Comment: Reaso n for Exam Hyperlipidemia Performed By: #### B MP #### [address] Platelets (Bld) [#/Vol] 163 10*3/uL Normal 150-450 [facility] Comment on above: Order Comment: Reaso n for Exam Hyperlipidemia Performed By: #### B MP #### [address] RBC (Bld) [#/Vol] 5.06 10*6/uL Normal 3.90-5.60 [facility] Comment on above: Order Comment: Reaso n for Exam Hyperlipidemia Performed By: #### B MP #### [address] WBC (Bld) [#/Vol] 6.6 10*3/uL Normal 4.5-11.0 [facility] Comment on above: Order Comment: Reaso n for Exam Hyperlipidemia Performed By: #### B MP #### [address] Thyroid Stimulating Hormoneo n 09-03-2022 TSH Qn 0.99 m[IU]/L Normal 0.45-5.33 [facility] Comment on above: Order Comment: Reaso n for Exam Hyperlipidemia Result Comment: PERF ORMED BY: [place] [address] PATHOLOGIST [employer] SIVAKUMAR PALACIOS M.D. Performed By: #### S CAN CBC, LIPID, CMP, A1C WTH eA, TSH3 #### [address] COVID-19on 02-18-2022 SARS-CoV-2 (COVID-19) RNA KELLIE+probe [...] authorized laboratories. Fact sheet for Healthcare Providers: https://www.fda.gov/media/118853/download Fact sheet for Patients: https://www.fda.gov/media/131558/download METHODOLOGY: Isothermal Nucleic Acid Amplification Performed By: #### C OVPC #### [place] [address] COVID-19, Rapidon 02-18-2022 SARS-CoV-2 (COVID-19) RNA KELLIE+probe Ql (Unsp spec) Not detected NOT DETECTED [facility] Comment on above: Rapid NAAT: Negative results [...] authorized laboratories. Fact sheet for Healthcare Providers: https://www.fda.gov/media/229978/download Fact sheet for Patients: https://www.fda.gov/media/544273/download METHODOLOGY: Isothermal Nucleic Acid Amplification Performed at [facility] [address] GLUCOSE POCon 02-18-2022 Glucose [Mass/Vol] 100 mg/dL Normal 70-108 [facility] Comment on above: Performed By: #### P OCGL #### [address] [address] Glucose [Mass/Vol] 107 mg/dL Normal 70-108 [facility] Comment on above: Performed By: #### P OCGL #### [place] [address] POCT glucoseon 02-18-2022 Glucose [Mass/Vol] 100 mg/dL 70 - 108 mg/dl [facility] Comment on above: Performed at [facility] [address] [place] [address] [facility] Glucose [Mass/Vol] 107 mg/dL 70 - 108 mg/dl [facility] Comment on above: Performed at [facility] [address] [place] [address] [facility] GLUCOSE POCon 02-17-2022 Glucose [Mass/Vol] 90 mg/dL Normal 70-108 [facility] Comment on above: Performed By: #### C BCND, PT, APTT, BMP, ANION, EGFR1 #### [facility] [address] [place] [address] Glucose [Mass/Vol] 88 mg/dL Normal 70-108 [facility] Comment on above: Performed By: #### P OCGL #### [facility] [address] [address] Glucose [Mass/Vol] 99 mg/dL Normal 70-108 [facility] Comment on above: Performed By: #### P OCGL #### [facility] [address] [place] [address] POCT glucoseon 02-17-2022 Glucose [Mass/Vol] 90 mg/dL 70 - 108 mg/dl [facility] Comment on above: Performed at [facility] [address] [place] [address] [facility] Glucose [Mass/Vol] 88 mg/dL 70 - 108 mg/dl [facility] Comment on above: Performed at [facility] [address] [place] [address] [facility] Glucose [Mass/Vol] 99 mg/dL 70 - 108 mg/dl [facility] Comment on above: Performed at [facility] [address] [place] [address] [facility] GLUCOSE POCon 02-16-2022 Glucose [Mass/Vol] 116 mg/dL High 70-108 [facility] Comment on above: Performed By: #### P OCGL ####[facility] [address] [place] [address] Glucose [Mass/Vol] 121 mg/dL High 70-108 [facility] Comment on above: Performed By: #### P OCGL #### [facility] [address] [place] [address] Glucose [Mass/Vol] 89 mg/dL Normal 70-108 [facility] Comment on above: Performed By: #### C BCND, PT, APTT, BMP, ANION, EGFR1 #### [facility] [address] [place] [address] Glucose [Mass/Vol] 95 mg/dL Normal 70-108 [facility] Comment on above: Performed By: #### C BCND, PT, APTT, BMP, ANION, EGFR1 #### [facility] [address] [place] [address] Glucose [Mass/Vol] 85 mg/dL Normal 70-108 [facility] Comment on above: Performed By: #### C BCND, PT, APTT, BMP, ANION, EGFR1 #### [facility] [address] [place] [address] POCT Glucoseon 02-16-2022 Glucose [Mass/Vol] 121 mg/dL High 70 - 108 mg/dl [facility] Comment on above: Performed at [facility] [address] [place] [address] Interpretation and review of laboratory results Abnormal [facility] POCT glucoseon 02-16-2022 Glucose [Mass/Vol] 116 mg/dL High 70 - 108 mg/dl [facility] Comment on above: Performed at [facility] [address] [place] [address] Interpretation and review of laboratory results Abnormal [facility] Glucose [Mass/Vol] 89 mg/dL 70 - 108 mg/dl [facility] Comment on above: Performed at [facility] [address] [place] [id number] [place] [address] Glucose [Mass/Vol] 95 mg/dL 70 - 108 mg/dl [facility] Comment on above: Performed at [facility] [address] [place] [id number] [place] [address] Glucose [Mass/Vol] 85 mg/dL 70 - 108 mg/dl [facility] Comment on above: Performed at [facility] [address] [place] [address] ANION GAPon 02-15-2022 Anion gap [Moles/Vol] 8.0 mmol/L Normal 8.0-16.0 [facility] Comment on above: Result Comment: ANIO N GAP = Sodium -(Chloride + CO2) Performed By: #### C BCND, BMP, ANION, EGFR1 ####[facility] [address] [place] [address] Anion Gapon 02-15-2022 Anion gap [Moles/Vol] 8.0 mmol/L 8.0 - 16.0 meq/L [facility] Comment on above: ANION GAP = Sodium - (Chloride + CO2) Performed at [facility] [address] [place] [address] BASIC METABOL PANELon 2021 Calcium [Mass/Vol] 8.1 mg/dL Low 8.5-10.5 [facility] Comment on above: Performed By: #### P OCGL #### [address] [address] Chloride [Moles/Vol] 105 mmol/L Normal 98-111 [facility] Comment on above: Performed By: #### P OCGL #### [facility] [address] [place] [address] CO2 [Moles/Vol] 25 mmol/L Normal 23-33 [facility] Comment on above: Performed By: #### P OCGL #### [facility] [address] [place] [address] Creatinine [Mass/Vol] 1.0 mg/dL Normal 0.4-1.2 [facility] Comment on above: Performed By: #### P OCGL #### [facility] [address] [place] [address] Glucose [Mass/Vol] 101 mg/dL Normal 70-108 [facility] Comment on above: Performed By: #### P OCGL #### [facility] [address] [place] [address] Potassium [Moles/Vol] 3.9 mmol/L Normal 3.5-5.2 [facility] Comment on above: Performed By: #### P OCGL #### [facility] [address] [place] [address] Sodium [Moles/Vol] 138 mmol/L Normal 135-145 [facility] Comment on above: Performed By: #### P OCGL #### [facility] [address] [place] [address] Urea nitrogen [Mass/Vol] 19 mg/dL Normal 7-22 [facility] Comment on above: Performed By: #### P OCGL #### [facility] [address] [place] [address] Basic Metabolic Panelon 01-19 Calcium [Mass/Vol] 8.1 mg/dL Low 8.5 - 10. 5 mg/dL [facility] Comment on above: Performed at [facility] [address] [place] [address] Chloride [Moles/Vol] 105 mmol/L 98 - 111 meq/L [facility] CO2 [Moles/Vol] 25 mmol/L 23 - 33 meq/L [facility] Creat[facility] [Mass/Vol] 1 mg/dL 0.4 - 1.2 mg/dL [facility] Glucose [Mass/Vol] 101 mg/dL 70 - 108 mg/dL [facility] Potassium [Moles/Vol] 3.9 mmol/L 3.5 - 5.2 meq/L [facility] Sodium [Moles/Vol] 138 mmol/L 135 - 145 meq/L [facility] Urea nitrogen (BldV) [Mass/Vol] 19 mg/dL 7 - 22 mg/dL [facility] CBCon 02-15-2022 Erythrocyte distribution width (RBC) [Ratio] 13.3 % 11.5 - 14.5 % [facility] Erythrocyte distribution width (RBC) [Ratio] 46.9 fL High 35.0 - 45.0 fL [facility] Hematocrit (Bld) [Volume fraction] 30.1 % Low 42.0 - 52.0 % A4 Data Hemoglobin.gastroi ntestinal spec 1 Ql (Stl) 9.5 Low A4 Data Interpretation and review of laboratory results Abnormal [facility] MCH (RBC) [Entitic mass] 30.4 pg 26.0 - 33.0 pg A4 Data MCHC (RBC) [Mass/Vol] 31.6 g/dL Low A4 Data MCV (RBC) [Entitic vol] 96.2 fL High 80.0 - 94.0 fL A4 Data Platelet mean volume (Bld) [Entitic vol] 11.7 fL 9.4 - 12.4 fL [facility] Comment on above: Performed at [facility] [address] [place] [address] Platelets (Bld) [#/Vol] 159 10*3/uL [facility] RBC (Bld) [#/Vol] 3.13 10*6/uL [facility] WBC (Bld) [#/Vol] 4.3 10*3/uL [facility] CBC NO DIFFERENTIALon 2021 Erythrocyte distribution width (RBC) [Ratio] 13.3 % Normal 11.5-14.5 [facility] Comment on above: Performed By: #### P OCGL #### [address] [address] Hematocrit (Bld) [Volume fraction] 30.1 % Low 42.0-52.0 [facility] Comment on above: Performed By: #### P OCGL #### [address] [address] Hemoglobin (Bld) [Mass/Vol] 9.5 g/dL Low 14.0-18.0 [facility] Comment on above: Performed By: #### P OCGL #### [address] [address] MCH (RBC) [Entitic mass] 30.4 pg Normal 26.0-33.0 [facility] Comment on above: Performed By: #### P OCGL #### [address] [address] MCHC (RBC) [Mass/Vol] 31.6 g/dL Low 32.2-35.5 [facility] Comment on above: Performed By: #### P OCGL #### [address] [address] MCV (RBC) [Entitic vol] 96.2 fL High 80.0-94.0 [facility] Comment on above: Performed By: #### P OCGL #### [facility] [address] [place] [address] PLATELET 159 thou/mm3 Normal 130-400 [facility] Comment on above: Performed By: #### P OCGL #### [facility] [address] [place] [address] Platelet mean volume (Bld) [Entitic vol] 11.7 fL Normal 9.4-12.4 [facility] Comment on above: Performed By: #### P OCGL #### [facility] [address] [place] [address] RBC 3.13 mill/mm3 Low 4.70-6.10 [facility] Comment on above: Performed By: #### P OCGL #### [facility] [address] [place] [address] RDW-SD 46.9 fL High 35.0-45.0 [facility] Comment on above: Performed By: #### P OCGL #### [facility] [address] [place] [address] WBC 4.3 thou/mm3 Low 4.8-10.8 [facility] Comment on above: Performed By: #### P OCGL #### [facility] [address] [place] [address] GFR, ESTIMATEDon 02-15-2022 GFR/1.73 sq M.predicted MDRD (S/P/Bld) [Vol rate/Area] 75 mL/min/{1.73_m2} Abnormal [facility] Comment on above: Result Comment: Lilliam crum [...] #### C BCND, BMP, ANION, EGFR1 ####[facility] [address] [place] [address] GLUCOSE POCon 02-15-2022 Glucose [Mass/Vol] 85 mg/dL Normal 70-108 [facility] Comment on above: Performed By: #### P OCGL #### [facility] [address] [place] [address] Glucose [Mass/Vol] 98 mg/dL Normal 70-108 [facility] Comment on above: Performed By: #### C BCND, PT, APTT, BMP, ANION, EGFR1 #### [facility] [address] [place] [address] Glucose [Mass/Vol] 101 mg/dL Normal 70-108 [facility] Comment on above: Performed By: #### P OCGL ####[facility] [address] [place] [address] Glucose [Mass/Vol] 89 mg/dL Normal 70-108 [facility] Comment on above: Performed By: #### P OCGL #### [facility] [address] [place] [address] Glomerular Filtration Rate, Estimatedon 02-15-2022 GFR/1.73 sq M.predicted MDRD (S/P/Bld) [Vol rate/Area] 75 mL/min/{1.73_m2} Abnormal ml/min/1.7 3m2 [facility] Comment on above: Stage Description GF R, [...] Vol. 139 (2) pg 137-147. Performed at [facility] [address] [place] [address] No Panel Informationon 02-15 Interpretation and review of laboratory results Abnormal [facility] POCT glucoseon 02-15-2022 Glucose [Mass/Vol] 85 mg/dL 70 - 108 mg/dl [facility] Comment on above: Performed at [facility] [address] [place], [place] [address] [place] [address] [facility] Glucose [Mass/Vol] 98 mg/dL 70 - 108 mg/dl [facility] Comment on above: Performed at [facility] [address] [place] [address] [facility] Glucose [Mass/Vol] 101 mg/dL 70 - 108 mg/dl [facility] Comment on above: Performed at [facility] [address] [place] [id number] [place] [address] Glucose [Mass/Vol] 89 mg/dL 70 - 108 mg/dl [facility] Comment on above: Performed at [facility] [address] [place] [address] [facility] GLUCOSE POCon 02-14-2022 Glucose [Mass/Vol] 90 mg/dL Normal 70-108 [facility] Comment on above: Performed By: #### C BCND, PT, APTT, BMP, ANION, EGFR1 #### [address] [address] Glucose [Mass/Vol] 100 mg/dL Normal 70-108 [facility] Comment on above: Performed By: #### C BCND, PT, APTT, BMP, ANION, EGFR1 #### [address] [address] Glucose [Mass/Vol] 86 mg/dL Normal 70-108 [facility] Comment on above: Performed By: #### C BCND, PT, APTT, BMP, ANION, EGFR1 #### [facility] [address] [place] [address] Glucose [Mass/Vol] 94 mg/dL Normal 70-108 [facility] Comment on above: Performed By: #### P OCGL ####[facility] [address] [place] [address] Glucose [Mass/Vol] 79 mg/dL Normal 70-108 [facility] Comment on above: Performed at [facility] [address] [place] [address] Performed By: #### P OCGL #### [facility] [address] [address] No Panel Informationon 02-14 [facility] POCT glucoseon 02-14-2022 Glucose [Mass/Vol] 90 mg/dL 70 - 108 mg/dl [facility] Comment on above: Performed at [facility] [address] [place] [address] [facility] Glucose [Mass/Vol] 100 mg/dL 70 - 108 mg/dl [facility] Comment on above: Performed at [facility] [address] [place] [address] [facility] Glucose [Mass/Vol] 86 mg/dL 70 - 108 mg/dl [facility] Comment on above: Performed at [facility] [address] [place] [id number] [place] [address] Health Glucose [Mass/Vol] 94 mg/dL 70 - 108 mg/dl [facility] Comment on above: Performed at [facility] [address] [place] [address] GLUCOSE POCon 02-13-2022 Glucose [Mass/Vol] 96 mg/dL Normal 70-108 [facility] Comment on above: Performed By: #### P OCGL #### [address] [address] Glucose [Mass/Vol] 85 mg/dL Normal 70-108 [facility] Comment on above: Performed By: #### C BCND, PT, APTT, BMP, ANION, EGFR1 #### [address] [address] Glucose [Mass/Vol] 95 mg/dL Normal 70-108 [facility] Comment on above: Performed By: #### C BCND, PT, APTT, BMP, ANION, EGFR1 #### [address] [address] Glucose [Mass/Vol] 82 mg/dL Normal 70-108 [facility] Comment on above: Performed By: #### C BCND, PT, APTT, BMP, ANION, EGFR1 #### [facility] [address] [place] [address] POCT glucoseon 02-13-2022 Glucose [Mass/Vol] 96 mg/dL 70 - 108 mg/dl [facility] Comment on above: Performed at [facility] [address] [place] [address] [facility] Glucose [Mass/Vol] 85 mg/dL 70 - 108 mg/dl [facility] Comment on above: Performed at [facility] [address] [place] [id number] [place] [address] Glucose [Mass/Vol] 95 mg/dL 70 - 108 mg/dl [facility] Comment on above: Performed at [facility] [address] [place] [address] Glucose [Mass/Vol] 82 mg/dL 70 - 108 mg/dl [facility] Comment on above: Performed at [facility] [address] [place] [address] [facility] ANION GAPon 02-12-2022 Anion gap [Moles/Vol] 9.0 mmol/L Normal 8.0-16.0 [facility] Comment on above: Result Comment: ANIO N GAP = Sodium -(Chloride + CO2) Performed By: #### P OCGL #### [facility] [address] [place] [address] Anion Gapon 02-12-2022 Anion gap [Moles/Vol] 9.0 mmol/L 8.0 - 16.0 meq/L [facility] Comment on above: ANION GAP = Sodium - (Chloride + CO2) Performed at [facility] [address] [place] [address] BASIC METABOL PANELon 2021 Calcium [Mass/Vol] 8.2 mg/dL Low 8.5-10.5 [facility] Comment on above: Performed By: #### P OCGL #### [facility] [address] [place] [address] Chloride [Moles/Vol] 105 mmol/L Normal 98-111 [facility] Comment on above: Performed By: #### P OCGL #### [facility] [address] [place] [address] CO2 [Moles/Vol] 24 mmol/L Normal 23-33 [facility] Comment on above: Performed By: #### P OCGL #### [facility] [address] [place] [address] Creatinine [Mass/Vol] 0.9 mg/dL Normal 0.4-1.2 [facility] Comment on above: Performed By: #### P OCGL #### [facility] [address] [place] [address] Glucose [Mass/Vol] 66 mg/dL Low 70-108 [facility] Comment on above: Performed By: #### P OCGL #### [facility] [address] [place] [address] Potassium [Moles/Vol] 3.9 mmol/L Normal 3.5-5.2 [facility] Comment on above: Performed By: #### P OCGL #### [facility] [address] [place] [address] Sodium [Moles/Vol] 138 mmol/L Normal 135-145 [facility] Comment on above: Performed By: #### P OCGL #### [facility] [address] [place] [address] Urea nitrogen [Mass/Vol] 17 mg/dL Normal 7-22 [facility] Comment on above: Performed By: #### P OCGL #### [facility] [address] [place] [address] Basic Metabolic Panelon 01-18 Calcium [Mass/Vol] 8.2 mg/dL Low 8.5 - 10. 5 mg/dL [facility] Comment on above: Performed at [facility] [address] [place] [address] Chloride [Moles/Vol] 105 mmol/L 98 - 111 meq/L [facility] CO2 [Moles/Vol] 24 mmol/L 23 - 33 meq/L [facility] Creatinine [Mass/Vol] 0.9 mg/dL 0.4 - 1.2 mg/dL [facility] Glucose [Mass/Vol] 66 mg/dL Low 70 - 108 mg/dL [facility] Potassium [Moles/Vol] 3.9 mmol/L 3.5 - 5.2 meq/L [employer] [facility] Sodium [Moles/Vol] 138 mmol/L 135 - 145 meq/L [facility] Urea nitrogen (BldV) [Mass/Vol] 17 mg/dL 7 - 22 mg/dL [facility] Data CBCon 02-12-2022 Erythrocyte distribution width (RBC) [Ratio] 13.8 % 11.5 - 14.5 % A4 Data Erythrocyte distribution width (RBC) [Ratio] 49.3 fL High 35.0 - 45.0 fL [facility] Hematocrit (Bld) [Volume fraction] 32.0 % Low 42.0 - 52.0 % A4 Data Hemoglobin.gastroi ntestinal spec 1 Ql (Stl) 9.8 Low A4 Data Interpretation and review of laboratory results Abnormal A[facility] Data MCH (RBC) [Entitic mass] 29.8 pg 26.0 - 33.0 pg [facility] MCHC (RBC) [Mass/Vol] 30.6 g/dL Low [facility] MCV (RBC) [Entitic vol] 97.3 fL High 80.0 - 94.0 fL [facility] Platelet mean volume (Bld) [Entitic vol] 12.3 fL 9.4 - 12.4 fL [facility] Comment on above: Performed at [facility] [address] [place] [address] Platelets (Bld) [#/Vol] 142 10*3/uL [facility] RBC (Bld) [#/Vol] 3.29 10*6/uL Low [facility] WBC (Bld) [#/Vol] 5.1 10*3/uL [facility] CBC NO DIFFERENTIALon 2021 Erythrocyte distribution width (RBC) [Ratio] 13.8 % Normal 11.5-14.5 [facility] Comment on above: Performed By: #### P OCGL #### [address] [address] Hematocrit (Bld) [Volume fraction] 32.0 % Low 42.0-52.0 [facility] Comment on above: Performed By: #### P OCGL #### [facility] [address] [address] Hemoglobin (Bld) [Mass/Vol] 9.8 g/dL Low 14.0-18.0 [facility] Comment on above: Performed By: #### P OCGL #### [facility] [address] [place] [address] MCH (RBC) [Entitic mass] 29.8 pg Normal 26.0-33.0 [facility] Comment on above: Performed By: #### P OCGL #### [facility] [address] [place] [address] MCHC (RBC) [Mass/Vol] 30.6 g/dL Low 32.2-35.5 [facility] Comment on above: Performed By: #### P OCGL #### [facility] [address] [place] [address] MCV (RBC) [Entitic vol] 97.3 fL High 80.0-94.0 [facility] Comment on above: Performed By: #### P OCGL #### [facility] [address] [place] [address] PLATELET 142 thou/mm3 Normal 130-400 [facility] Comment on above: Performed By: #### P OCGL #### [facility] [address] [place] [address] Platelet mean volume (Bld) [Entitic vol] 12.3 fL Normal 9.4-12.4 [facility] Comment on above: Performed By: #### P OCGL #### [facility] [address] [place] [address] RBC 3.29 mill/mm3 Low 4.70-6.10 [facility] Comment on above: Performed By: #### P OCGL #### [facility] [address] [address] RDW-SD 49.3 fL High 35.0-45.0 [facility] Comment on above: Performed By: #### P OCGL #### [facility] [address] [place] [address] WBC 5.1 thou/mm3 Normal 4.8-10.8 [facility] Comment on above: Performed By: #### P OCGL #### [facility] [address] [address] GFR, ESTIMATEDon 02-12-2022 GFR/1.73 sq M.predicted MDRD (S/P/Bld) [Vol rate/Area] 85 mL/min/{1.73_m2} Abnormal [facility] Comment on above: Result Comment: Evitag skyla [...] Performed By: #### P OCGL #### [facility] [address] [place] [address] GLUCOSE POCon 02-12-2022 Glucose [Mass/Vol] 95 mg/dL Normal 70-108 [facility] Comment on above: Performed By: #### P OCGL #### [facility] [address] [place] [address] Glucose [Mass/Vol] 84 mg/dL Normal 70-108 [facility] Comment on above: Performed By: #### C BCND, PT, APTT, BMP, ANION, EGFR1 #### [facility] [address] [place] [address] Glucose [Mass/Vol] 86 mg/dL Normal 70-108 [facility] Comment on above: Performed By: #### P OCGL ####[facility] [address] [place] [address] Glucose [Mass/Vol] 90 mg/dL Normal 70-108 [facility] Comment on above: Performed By: #### P OCGL ####[facility] [address] [place] [address] Glomerular Filtration Rate, Estimatedon 02-12-2022 GFR/1.73 sq M.predicted MDRD (S/P/Bld) [Vol rate/Area] 85 mL/min/{1.73_m2} Abnormal ml/min/1.[address] [place] [address] Comment on above: Stage Description GF R, [...] 139 (2) pg 137-147. Performed at [facility] [address] [place] [address] No Panel Informationon 02-12 Interpretation and review of laboratory results Abnormal [facility] POCT glucoseon 04-27-2022 Glucose [Mass/Vol] 95 mg/dL 70 - 108 mg/dl [facility] Comment on above: Performed at [facility] [address] [place] [address] Glucose [Mass/Vol] 84 mg/dL 70 - 108 mg/dl [facility] Comment on above: Performed at [facility] [address] [place] [address] Glucose [Mass/Vol] 86 mg/dL 70 - 108 mg/dl [facility] Comment on above: Performed at [facility] [address] [place] [address] Glucose [Mass/Vol] 90 mg/dL 70 - 108 mg/dl [facility] Comment on above: Performed at [facility] [address] [place] [address] CBCon 02-11-2022 Erythrocyte distribution width (RBC) [Ratio] 13.7 % 11.5 - 14.5 % [facility] Erythrocyte distribution width (RBC) [Ratio] 48.8 fL High 35.0 - 45.0 fL [facility] Hematocrit (Bld) [Volume fraction] 31.5 % Low 42.0 - 52.0 % [facility] Hemoglobin.gastroi ntestinal spec 1 Ql (Stl) 9.8 Low [facility] Interpretation and review of laboratory results Abnormal [facility] MCH (RBC) [Entitic mass] 30.2 pg 26.0 - 33.0 pg [facility] MCHC (RBC) [Mass/Vol] 31.1 g/dL Low [facility] MCV (RBC) [Entitic vol] 97.2 fL High 80.0 - 94.0 fL [facility] Platelet mean volume (Bld) [Entitic vol] 12.8 fL High 9.4 - 12.4 fL [facility] Comment on above: Performed at [facility] [address] [place] [address] Platelets (Bld) [#/Vol] 122 10*3/uL Low [facility] RBC (Bld) [#/Vol] 3.24 10*6/uL Low [facility] WBC (Bld) [#/Vol] 5.7 10*3/uL [facility] CBC NO DIFFERENTIALon 2021 Erythrocyte distribution width (RBC) [Ratio] 13.7 % Normal 11.5-14.5 [facility] Comment on above: Performed By: #### P OCGL #### [address] [address] Hematocrit (Bld) [Volume fraction] 31.5 % Low 42.0-52.0 [facility] Comment on above: Performed By: #### P OCGL #### [facility] [address] [place] [address] Hemoglobin (Bld) [Mass/Vol] 9.8 g/dL Low 14.0-18.0 [facility] Comment on above: Performed By: #### P OCGL #### [address] [address] MCH (RBC) [Entitic mass] 30.2 pg Normal 26.0-33.0 [facility] Comment on above: Performed By: #### P OCGL #### [address] [address] MCHC (RBC) [Mass/Vol] 31.1 g/dL Low 32.2-35.5 [facility] Comment on above: Performed By: #### P OCGL #### [address] [address] MCV (RBC) [Entitic vol] 97.2 fL High 80.0-94.0 [facility] Comment on above: Performed By: #### P OCGL #### [address] [address] PLATELET 122 thou/mm3 Low 130-400 [facility] Comment on above: Performed By: #### P OCGL #### [address] [address] Platelet mean volume (Bld) [Entitic vol] 12.8 fL High 9.4-12.4 [facility] Comment on above: Performed By: #### P OCGL #### [facility] [address] [place] [address] RBC 3.24 mill/mm3 Low 4.70-6.10 [facility] Comment on above: Performed By: #### P OCGL #### [address] [address] RDW-SD 48.8 fL High 35.0-45.0 [facility] Comment on above: Performed By: #### P OCGL #### [address] [address] WBC 5.7 thou/mm3 Normal 4.8-10.8 [facility] Comment on above: Performed By: #### P OCGL #### [address] [address] GLUCOSE POCon 02-11-2022 Glucose [Mass/Vol] 116 mg/dL High 70-108 [facility] Comment on above: Performed By: #### P OCGL #### [address] [address] Glucose [Mass/Vol] 87 mg/dL Normal 70-108 [facility] Comment on above: Performed By: #### C BCND, PT, APTT, BMP, ANION, EGFR1 #### [address] [address] Glucose [Mass/Vol] 90 mg/dL Normal 70-108 [facility] Comment on above: Performed By: #### P OCGL #### [address] [address] Glucose [Mass/Vol] 112 mg/dL High 70-108 [facility] Comment on above: Performed By: #### C BCND, PT, APTT, BMP, ANION, EGFR1 #### [address] [address] POCT Glucoseon 02-11-2022 Glucose [Mass/Vol] 87 mg/dL 70 - 108 mg/dl [facility] Comment on above: Performed at [facility] [address] [place] [id number] [place] [address] Glucose [Mass/Vol] 90 mg/dL 70 - 108 mg/dl [facility] Comment on above: Performed at [facility] [address] [place] [address] Glucose [Mass/Vol] 112 mg/dL High 70 - 108 mg/dl [facility] Comment on above: Performed at [facility] [address] [place] [address] Interpretation and review of laboratory results Abnormal [facility] POCT glucoseon 02-11-2022 Glucose [Mass/Vol] 116 mg/dL High 70 - 108 mg/dl [facility] Comment on above: Performed at [facility] [address] [place] [address] Interpretation and review of laboratory results Abnormal [facility] VITAMIN B12 FOLATEon 022 Cobalamin (Vitamin B12) [Mass/Vol] 386 pg/mL Normal 211-911 [facility] Comment on above: Performed By: #### C BCND, PT, APTT, BMP, ANION, EGFR1 #### [address] [address] FOLATE 7.5 ng/mL Normal 4.8-24.2 [facility] Comment on above: Performed By: #### C BCND, PT, APTT, BMP, ANION, EGFR1 #### [place] [address] Vitamin B12 & Folateon 02-11 Cobalamin (Vitamin B12) [Mass/Vol] 386 pg/mL 211 - 911 pg/mL [facility] Folate 7.5 ng/mL 4.8 - 24.2 ng/mL [facility] Comment on above: Performed at [facility] [address] [place] [address] CORTISOLon 02-10-2022 CORTISOL SPECIMEN 60 Minute Normal [facility] Comment on above: Performed By: #### P OCGL #### [place] [address] ECHO Complete 2D W Doppler W Coloron 02-10-2022 Transthoracic Echocardiography Report (TTE) Demographics Patient Name SUNNY Cox Gender Male MR # [id number] Race Ethnicity Room Number 0025 Date of Study 02/10/2022 Number Date of 1960 Referring Physician Bala Schrader MD Age 61 year(s) Plate Fitter Lyn Prince HILDA Interpreting Beata Leahy MD [...] Name SUNNY Cox Gender Male MR # [id number] Race Ethnicity Room Number 0025 Date of Study 02/10/2022 Number Date of 1960 Referring Physician Bala Schrader MD Age 61 year(s) Plate Fitter Lyn Prince, [facility] Interpreting Beata Leahy MD Physician [...] E/E' lateral: 7.08 MR Velocity: 463 cm/s [id number]%3d [employer] Phone: ECHO Complete 2D W Doppler W ColorOrdered By: Armond Cota on 02-10-2022 [employer] Phone: ECHOCARDIOGRAM COMPLETE 2D W DOPPLER W COLORon 02-10-2022 ECHOCARDIOGRAM COMPLETE 2D W DOPPLER W COLOR Transthoracic Echocardiography Report (TTE) Demographics Patient Name SUNNY Cox Gender Male MR # [id number] Race Ethnicity Room Number 0025 Date of Study 02/10/2022 Number Date of 1960 Referring Physician Bala Schrader MD Age 61 year(s) Plate Fitter Lyn Prince RDCS Interpreting Beata Laehy MD Physician Procedure Type of Study TTE [...] E/E' lateral: 7.08 MR Velocity: 463 cm/s [id number]%3d%3d Normal [facility] GLUCOSE POCon 02-10-2022 Glucose [Mass/Vol] 113 mg/dL High 70-108 [facility] Comment on above: Performed By: #### C BCND, PT, APTT, BMP, ANION, EGFR1 #### [facility] [employer] [address] [place] [address] Glucose [Mass/Vol] 110 mg/dL High 70-108 [facility] Comment on above: Performed By: #### P OCGL #### [facility] [address] [place] [address] Glucose [Mass/Vol] 136 mg/dL High 70-108 [facility] Comment on above: Performed By: #### C BCND, PT, APTT, BMP, ANION, EGFR1 #### [facility] [address] [place] [address] Glucose [Mass/Vol] 125 mg/dL High 70-108 [facility] Comment on above: Performed By: #### P OCGL ####[employer] [address] [place] [address] POCT Glucoseon 02-10-2022 Glucose [Mass/Vol] 113 mg/dL High 70 - 108 mg/dl [facility] Comment on above: Performed at [facility] [address] [place] [address] Interpretation and review of laboratory results Abnormal [facility] Glucose [Mass/Vol] 110 mg/dL High 70 - 108 mg/dl [facility] Comment on above: Performed at [facility] [address] [place] [address] Interpretation and review of laboratory results Abnormal [facility] Glucose [Mass/Vol] 136 mg/dL High 70 - 108 mg/dl [facility] Comment on above: Performed at [facility] [employer] [facility] [address] [place] [address] Interpretation and review of laboratory results Abnormal [facility] Glucose [Mass/Vol] 125 mg/dL High 70 - 108 mg/dl [facility] Comment on above: Performed at [facility] [address] [place] [address] Interpretation and review of laboratory results Abnormal [facility] TSHon 02-10-2022 Interpretation and review of laboratory results Abnormal [facility] TSH Qn 0.354 m[IU]/L Low [facility] Comment on above: Performed at [facility] [employer] [facility] [address] [place] [address] TSH THIRD GENERATIONon 02-10 TSH THIRD GENERATION 0.354 uIU/mL Low 0.400-4.20 0 [facility] Comment on above: Performed By: #### P OCGL #### [place] [address] CBC WITH DIFFERENTIALon 01-18 ABS BASOPHILS 0.0 thou/mm3 Normal 0.0-0.1 [facility] Comment on above: Performed By: #### C BCND, PT, APTT, BMP, ANION, EGFR1 #### [address] [address] ABS EOSINOPHILS 0.1 thou/mm3 Normal 0.0-0.4 [facility] Comment on above: Performed By: #### C BCND, PT, APTT, BMP, ANION, EGFR1 #### [place] [address] ABS IMMATURE GRANS (IG) 0.02 thou/mm3 Normal 0.00-0.07 [facility] Comment on above: Performed By: #### C BCND, PT, APTT, BMP, ANION, EGFR1 #### [place] [address] ABS LYMPHOCYTES 1.3 thou/mm3 Normal 1.0-4.8 [facility] Comment on above: Performed By: #### C BCND, PT, APTT, BMP, ANION, EGFR1 #### [address] [address] ABS MONOCYTES 0.6 thou/mm3 Normal 0.4-1.3 [facility] Comment on above: Performed By: #### C BCND, PT, APTT, BMP, ANION, EGFR1 #### [address] [address] ABS NEUTROPHILS 4.3 thou/mm3 Normal 1.8-7.7 [facility] Comment on above: Performed By: #### C BCND, PT, APTT, BMP, ANION, EGFR1 #### [address] [address] Basophils/100 WBC (Bld) 0.3 % Normal [facility] Comment on above: Performed By: #### C BCND, PT, APTT, BMP, ANION, EGFR1 #### [address] [address] Eosinophils/100 WBC (Bld) 1.4 % Normal [facility] Comment on above: Performed By: #### C BCND, PT, APTT, BMP, ANION, EGFR1 #### [address] [address] Erythrocyte distribution width (RBC) [Ratio] 13.3 % Normal 11.5-14.5 [facility] Comment on above: Performed By: #### C BCND, PT, APTT, BMP, ANION, EGFR1 #### [address] [address] Hematocrit (Bld) [Volume fraction] 34.3 % Low 42.0-52.0 [facility] Comment on above: Performed By: #### C BCND, PT, APTT, BMP, ANION, EGFR1 #### [address] [address] Hemoglobin (Bld) [Mass/Vol] 10.8 g/dL Low 14.0-18.0 [facility] Comment on above: Performed By: #### C BCND, PT, APTT, BMP, ANION, EGFR1 #### [address] [address] IMMATURE GRANS (IG) 0.3 % Normal [facility] Comment on above: Performed By: #### C BCND, PT, APTT, BMP, ANION, EGFR1 #### [address] [address] Lymphocytes/100 WBC (Bld) 20.2 % Normal [facility] Comment on above: Performed By: #### C BCND, PT, APTT, BMP, ANION, EGFR1 #### [address] [address] MCH (RBC) [Entitic mass] 30.2 pg Normal 26.0-33.0 [facility] Comment on above: Performed By: #### C BCND, PT, APTT, BMP, ANION, EGFR1 #### [address] [address] MCHC (RBC) [Mass/Vol] 31.5 g/dL Low 32.2-35.5 [facility] Comment on above: Performed By: #### C BCND, PT, APTT, BMP, ANION, EGFR1 #### [place] [address] MCV (RBC) [Entitic vol] 95.8 fL High 80.0-94.0 [facility] Comment on above: Performed By: #### C BCND, PT, APTT, BMP, ANION, EGFR1 #### [place] [address] Monocytes/100 WBC (Bld) 9.5 % Normal [facility] Comment on above: Performed By: #### C BCND, PT, APTT, BMP, ANION, EGFR1 #### [place] [address] Neutrophils/100 WBC (Bld) 68.3 % Normal [facility] Comment on above: Performed By: #### C BCND, PT, APTT, BMP, ANION, EGFR1 #### [place] [address] NRBC 0 /100 wbc Normal [facility] Comment on above: Performed By: #### C BCND, PT, APTT, BMP, ANION, EGFR1 #### [place] [address] PLATELET 98 thou/mm3 Low 130-400 [facility] Comment on above: Performed By: #### C BCND, PT, APTT, BMP, ANION, EGFR1 #### [facility] [place] [address] Platelet mean volume (Bld) [Entitic vol] 12.9 fL High 9.4-12.4 [facility] Comment on above: Performed By: #### C BCND, PT, APTT, BMP, ANION, EGFR1 #### [place] [address] RBC 3.58 mill/mm3 Low 4.70-6.10 [facility] Comment on above: Performed By: #### C BCND, PT, APTT, BMP, ANION, EGFR1 #### [facility] [address] [place] [address] RDW-SD 47.0 fL High 35.0-45.0 [facility] Comment on above: Performed By: #### C BCND, PT, APTT, BMP, ANION, EGFR1 #### [facility] [address] [place] [address] WBC 6.3 thou/mm3 Normal 4.8-10.8 [facility] Comment on above: Performed By: #### C BCND, PT, APTT, BMP, ANION, EGFR1 #### [facility] [address] [place] [address] CBC with Auto Differentialon 02-09-2022 Basophils (Bld) [#/Vol] 0.0 10*3/uL A4 Data Basophils/100 WBC (Bld) 0.3 % A4 Data Eosinophils Absolute 0.1 A4 Data Eosinophils/100 WBC (Bld) 1.4 % A4 Data Erythrocyte distribution width (RBC) [Ratio] 13.3 % 11.5 - 14.5 % A4 Data Erythrocyte distribution width (RBC) [Ratio] 47 fL High 35.0 - 45.0 fL [facility] Hematocrit (Bld) [Volume fraction] 34.3 % Low 42.0 - 52.0 % A4 Data Hemoglobin.gastroi ntestinal spec 1 Ql (Stl) 10.8 Low A4 Data Immature Grans (Abs) 0.02 A4 Data Immature granulocytes/100 WBC (Bld) 0.3 % A4 Data Interpretation and review of laboratory results Abnormal A4 Data Lymphocytes Absolute 1.3 A4 Data Lymphocytes/100 WBC (Bld) 20.2 % A4 Data MCH (RBC) [Entitic mass] 30.2 pg 26.0 - 33.0 pg A4 Data MCHC (RBC) [Mass/Vol] 31.5 g/dL Low A4 Data MCV (RBC) [Entitic vol] 95.8 fL High 80.0 - 94.0 fL A4 Data Monocytes Absolute 0.6 A4 Data Monocytes/100 WBC (Bld) 9.5 % A4 Data nRBC 0 /100 [facility]bc [facility] Comment on above: Performed at [facility] [address] [place] [address] Platelet mean volume (Bld) [Entitic vol] 12.9 fL High 9.4 - 12.4 fL [facility] Platelets (Bld) [#/Vol] 98 10*3/uL Low [facility] RBC (Bld) [#/Vol] 3.58 10*6/uL [facility] Segmented neutrophils/100 WBC (Bld) 68.3 % [facility]s [facility] 4.3 [facility] [#/Vol] 6.3 10*3/uL [facility] CORTISOLon 02-09-2022 CORTISOL 15.55 ug/dL Normal [facility] Comment on above: Result Comment: Refe rence ranges AM serum (7-9AM): 4.82-19.5 ug/dl PM serum (3-5PM): 2.47-11.9 ug/dl Performed By: #### P OCGL #### [employer] [address] [place] [address] CORTISOL 21.14 ug/dL Normal [facility] Comment on above: Result Comment: Refe rence ranges AM serum (7-9AM): 4.82-19.5 ug/dl PM serum (3-5PM): 2.47-11.9 ug/dl Performed By: #### P OCGL #### [employer] [address] [place] [address] CORTISOL SPECIMEN 30 Minute Normal [facility] Comment on above: Performed By: #### P OCGL #### [employer] [address] [place] [address] CORTISOL SPECIMEN Baseline Normal [facility] Comment on above: Performed By: #### P OCGL #### [employer] [address] [place] [address] CORTISOL 7.85 ug/dL Normal [facility] Comment on above: Result Comment: Refe rence ranges AM serum (7-9AM): 4.82-19.5 ug/dl PM serum (3-5PM): 2.47-11.9 ug/dl Performed By: #### P OCGL #### [employer] [address] [place] [address] CORTISOL SPECIMEN AM Specimen Normal [facility] Comment on above: Performed By: #### P OCGL #### [address] [address] CORTISOL 4.35 ug/dL Normal [facility] Comment on above: Result Comment: Refe rence ranges AM serum (7-9AM): 4.82-19.5 ug/dl PM serum (3-5PM): 2.47-11.9 ug/dl Performed By: #### P OCGL #### [facility] [employer] [address] [address] Cortisol Totalon 02-09-2022 Cortisol 21.14 ug/dL A4 Data Comment on above: Reference ranges AM serum (7-9AM): 4.82-19.5 ug/dl PM serum (3-5PM): 2.47-11.9 ug/dl Cortisol Collection Info 60 Minute A4 Data Comment on above: Performed at [facility] [place] [address] [employer] Cortisol 15.55 ug/dL A4 Data Comment on above: Reference ranges AM serum (7-9AM): 4.82-19.5 ug/dl PM serum (3-5PM): 2.47-11.9 ug/dl Cortisol Collection Info 30 Minute A4 Data Comment on above: Performed at [facility] [address] [place] [address] [employer] Cortisol 4.35 ug/dL A4 Data Comment on above: Reference ranges AM serum (7-9AM): 4.82-19.5 ug/dl PM serum (3-5PM): 2.47-11.9 ug/dl Cortisol Collection Info AM Specimen A4 Data Comment on above: Performed at [facility] [place] [address] [employer] Cortisol, 0 minuteson 2021 Cortisol 7.85 ug/dL A4 Data Comment on above: Reference ranges AM serum (7-9AM): 4.82-19.5 ug/dl PM serum (3-5PM): 2.47-11.9 ug/dl Cortisol Collection Info Baseline A4 Data Comment on above: Performed at [facility] [address] [employer] GLUCOSE POCon 02-09-2022 Glucose [Mass/Vol] 154 mg/dL High 70-108 [facility] Comment on above: Performed By: #### P OCGL #### [facility] [address] [place] [address] Glucose [Mass/Vol] 167 mg/dL High 70-108 [facility] Comment on above: Performed By: #### C BCND, PT, APTT, BMP, ANION, EGFR1 #### [facility] [address] [place] [address] 19475 Glucose [Mass/Vol] 121 mg/dL High 70-108 [facility] Comment on above: Performed By: #### P OCGL #### [facility] [address] [place] [address] 9[address]26 Glucose [Mass/Vol] 106 mg/dL Normal 70-108 [facility] Comment on above: Performed By: #### P OCGL #### [facility] [address] [place] [address] Glucose [Mass/Vol] 117 mg/dL High 70-108 [facility] Comment on above: Performed By: #### P OCGL #### [address] [address] POCT Glucoseon 02-09-2022 Glucose [Mass/Vol] 154 mg/dL High 70 - 108 mg/dl [facility] Comment on above: Performed at [facility] [address] [place] [address] Interpretation and review of laboratory results Abnormal [facility] Glucose [Mass/Vol] 167 mg/dL High 70 - 108 mg/dl [facility] Comment on above: Performed at [facility] [address] [place] [address] Interpretation and review of laboratory results Abnormal [facility] Glucose [Mass/Vol] 121 mg/dL High 70 - 108 mg/dl [facility] Comment on above: Performed at [facility] [address] [place] [address] Interpretation and review of laboratory results Abnormal [facility] Glucose [Mass/Vol] 106 mg/dL 70 - 108 mg/dl [facility] Comment on above: Performed at [facility] [address] [place] [id number] [place] [address] Health Glucose [Mass/Vol] 117 mg/dL High 70 - 108 mg/dl [facility] Comment on above: Performed at [facility] [employer] [facility] [address] [place] [address] Interpretation and review of laboratory results Abnormal [facility] ANION GAPon 02-08-2022 Anion gap [Moles/Vol] 9.0 mmol/L Normal 8.0-16.0 [facility] Comment on above: Result Comment: ANIO N GAP = Sodium -(Chloride + CO2) Performed By: #### C BCND, PT, APTT, BMP, ANION, EGFR1 #### [facility] [address] [place] [address] Anion Gapon 02-08-2022 Anion gap [Moles/Vol] 9.0 mmol/L 8.0 - 16.0 meq/L [facility] Comment on above: ANION GAP = Sodium - (Chloride + CO2) Performed at [facility] [address] [place] [address] Anion gap [Moles/Vol] 6.0 mmol/L Low 8.0 - 16.0 meq/L [facility] Comment on above: ANION GAP = Sodium - (Chloride + CO2) Performed at [facility] [address] [place] [address] BASIC METABOL PANELon 2021 Calcium [Mass/Vol] 7.8 mg/dL Low 8.5-10.5 [facility] Comment on above: Performed By: #### C BCND, PT, APTT, BMP, ANION, EGFR1 #### [employer] [address] [place] [address] Chloride [Moles/Vol] 108 mmol/L Normal 98-111 [facility] Comment on above: Performed By: #### C BCND, PT, APTT, BMP, ANION, EGFR1 #### [facility] [address] [place] [address] CO2 [Moles/Vol] 21 mmol/L Low 23-33 [facility] Comment on above: Performed By: #### C BCND, PT, APTT, BMP, ANION, EGFR1 #### [facility] [address] [place] [address] Creatinine [Mass/Vol] 1.0 mg/dL Normal 0.4-1.2 [facility] Comment on above: Performed By: #### C BCND, PT, APTT, BMP, ANION, EGFR1 #### [facility] [address] [place] [address]06 Glucose [Mass/Vol] 112 mg/dL High 70-108 [facility] Comment on above: Performed By: #### C BCND, PT, APTT, BMP, ANION, EGFR1 #### [facility] [address] [place] [address]75 Potassium [Moles/Vol] 4.3 mmol/L Normal 3.5-5.2 [facility] Comment on above: Performed By: #### C BCND, PT, APTT, BMP, ANION, EGFR1 #### [address] [address] Sodium [Moles/Vol] 138 mmol/L Normal 135-145 [facility] Comment on above: Performed By: #### C BCND, PT, APTT, BMP, ANION, EGFR1 #### [facility] [address] [place] [address]130 Urea nitrogen [Mass/Vol] 12 mg/dL Normal 7-22 [facility] Comment on above: Performed By: #### C BCND, PT, APTT, BMP, ANION, EGFR1 #### [facility] [employer] [address] [address] Basic Metabolic Panelon 2 Calcium [Mass/Vol] 7.8 mg/dL Low 8.5 - 10. 5 mg/dL [facility] Comment on above: Performed at [facility] [address] [place] [address] Chloride [Moles/Vol] 108 mmol/L 98 - 111 meq/L [facility] [employer] CO2 [Moles/Vol] 21 mmol/L Low 23 - 33 meq/L [facility] [employer] Creatinine [Mass/Vol] 1 mg/dL 0.4 - 1.2 mg/dL [facility] [employer] Glucose [Mass/Vol] 112 mg/dL High 70 - 108 mg/dL [facility] Potassium [Moles/Vol] 4.3 mmol/L 3.5 - 5.2 meq/L [facility] [employer] Sodium [Moles/Vol] 138 mmol/L 135 - 145 meq/L [facility] Urea nitrogen (BldV) [Mass/Vol] 12 mg/dL 7 - 22 mg/dL [employer]4 [facility] Calcium [Mass/Vol] 7.5 mg/dL Low 8.5 - 10. 5 mg/dL [facility] Comment on above: Performed at [facility] [address] [place] [address] Chloride [Moles/Vol] 109 mmol/L 98 - 111 meq/L [facility] [employer] CO2 [Moles/Vol] 22 mmol/L Low 23 - 33 meq/L [facility] Creatinine [Mass/Vol] 0.8 mg/dL 0.4 - 1.2 mg/dL [facility] [employer] Glucose [Mass/Vol] 104 mg/dL 70 - 108 mg/dL [facility] Potassium [Moles/Vol] 3.8 mmol/L 3.5 - 5.2 meq/L [facility] Sodium [Moles/Vol] 137 mmol/L 135 - 145 meq/L [facility] [employer] Urea nitrogen (BldV) [Mass/Vol] 12 mg/dL 7 - 22 mg/dL A4 Data CBCon 02-08-2022 Erythrocyte distribution width (RBC) [Ratio] 13.4 % 11.5 - 14.5 % A4 Data Erythrocyte distribution width (RBC) [Ratio] 48.5 fL High 35.0 - 45.0 fL A4 Data Hematocrit (Bld) [Volume fraction] 33.5 % Low 42.0 - 52.0 % A4 Data Hemoglobin.gastroi ntestinal spec 1 Ql (Stl) 10.2 Low A4 Data Interpretation and review of laboratory results Abnormal [facility] [employer] MCH (RBC) [Entitic mass] 30.1 pg 26.0 - 33.0 pg [employer] MCHC (RBC) [Mass/Vol] 30.4 g/dL Low A4 Data MCV (RBC) [Entitic vol] 98.8 fL High 80.0 - 94.0 fL A4 Data Platelet mean volume (Bld) [Entitic vol] 12.9 fL High 9.4 - 12.4 fL A4 Data Comment on above: Performed at [facility] [address] [place] [address] Platelets (Bld) [#/Vol] 89 10*3/uL Low [facility] RBC (Bld) [#/Vol] 3.39 10*6/uL Low [facility] WBC (Bld) [#/Vol] 6.2 10*3/uL [facility] CBC NO DIFFERENTIALon 2021 Erythrocyte distribution width (RBC) [Ratio] 13.4 % Normal 11.5-14.5 [facility] Comment on above: Performed By: #### P OCGL #### [facility] [address] [place] [address] Hematocrit (Bld) [Volume fraction] 33.5 % Low 42.0-52.0 [facility] Comment on above: Performed By: #### P OCGL #### [address] [address] Hemoglobin (Bld) [Mass/Vol] 10.2 g/dL Low 14.0-18.0 [facility] Comment on above: Performed By: #### P OCGL #### [address] [address] MCH (RBC) [Entitic mass] 30.1 pg Normal 26.0-33.0 [facility] Comment on above: Performed By: #### P OCGL #### [address] [address] MCHC (RBC) [Mass/Vol] 30.4 g/dL Low 32.2-35.5 [facility] Comment on above: Performed By: #### P OCGL #### [address] [address] MCV (RBC) [Entitic vol] 98.8 fL High 80.0-94.0 [facility] Comment on above: Performed By: #### P OCGL #### [address] [address] PLATELET 89 thou/mm3 Low 130-400 [facility] Comment on above: Performed By: #### P OCGL #### [address] [address] Platelet mean volume (Bld) [Entitic vol] 12.9 fL High 9.4-12.4 [facility] Comment on above: Performed By: #### P OCGL #### [facility] [address] [place] [address] RBC 3.39 mill/mm3 Low 4.70-6.10 [facility] Comment on above: Performed By: #### P OCGL #### [facility] [address] [place] [address] RDW-SD 48.5 fL High 35.0-45.0 [facility] Comment on above: Performed By: #### P OCGL #### [facility] [address] [place] [address] WBC 6.2 thou/mm3 Normal 4.8-10.8 [facility] Comment on above: Performed By: #### P OCGL #### [facility] [address] [place] [address] EKG 12 LeadOrdered By: Susan Carrion on 02-08-2022 Atrial Rate 55 BPM [employer]4 [employer] Work Phone: P Council 27 degrees A4 [employer] Work Phone: P-R Interval 162 ms [employer] Phone: Q-T Interval 460 ms [employer] Phone: QRS Duration 94 ms [employer] Work Phone: QTc Calculation (Bazett) 440 ms [employer] Work Phone: R Council -22 degrees [employer] Work Phone: T Council 1 degrees [employer] Work Phone: Ventricular Rate 55 BPM ISC8 Work Phone: [employer] Phone: EKG 12 Leadon 02-08-2022 Sinus bradycardia [...] SUSAN CARRION ([id number]) on 02/08/2022 10:35:59 AM [employer] Phone: EKG 12-LEADon 02-08-2022 EKG 12-LEAD 55 55 [phone] 27 -22 1 Sinus bradycardia Otherwise normal ECG When compared with ECG of 23-JAN-2022 11:32, No significant change was found Confirmed by SUSAN CARRION ([id number]) on 02/08/2022 10:35:59 AM [email or web address]& Date=08-02-2022&Time=09%3a14% 3a41%3a00&TestType=ECG&Site=3 &OutputType=PDF&Ext=PDF Normal [facility] GFR, ESTIMATEDon 02-08-2022 GFR/1.73 sq M.predicted MDRD (S/P/Bld) [Vol rate/Area] 75 mL/min/{1.73_m2} Abnormal [facility] Comment on above: Result Comment: Lilliam crum [...] PT, APTT, BMP, ANION, EGFR1 #### [facility] [address] [place] [address] GLUCOSE POCon 02-08-2022 Glucose [Mass/Vol] 71 mg/dL Normal 70-108 [facility] Comment on above: Performed By: #### P OCGL ####[facility] [address] [place] [address] Glucose [Mass/Vol] 111 mg/dL High 70-108 [facility] Comment on above: Performed By: #### C BCND, PT, APTT, BMP, ANION, EGFR1 #### [facility] [address] [place] [address] Glucose [Mass/Vol] 66 mg/dL Low 70-108 [facility] Comment on above: Performed By: #### P OCGL #### [facility] [address] [place] [address] Glucose [Mass/Vol] 116 mg/dL High 70-108 [facility] Comment on above: Performed By: #### C BCND, PT, APTT, BMP, ANION, EGFR1 #### [facility] [address] [place] [address] Glucose [Mass/Vol] 68 mg/dL Low 70-108 [facility] Comment on above: Performed By: #### P OCGL #### [facility] [address] [place] [address] Glucose [Mass/Vol] 101 mg/dL Normal 70-108 [facility] Comment on above: Performed By: #### C BCND, PT, APTT, BMP, ANION, EGFR1 #### [facility] [address] [place] [address] Glucose [Mass/Vol] 126 mg/dL High 70-108 [facility] Comment on above: Performed By: #### P OCGL #### [facility] [address] [place] [address] Glomerular Filtration Rate, Estimatedon 02-08-2022 GFR/1.73 sq M.predicted MDRD (S/P/Bld) [Vol rate/Area] 75 mL/min/{1.73_m2} Abnormal ml/min/1.[address] [place] [address] Comment on above: Stage Description GF R, [...] Vol. 139 (2) pg 137-147. Performed at [facility] [address] [place] [address] GFR/1.73 sq M.predicted MDRD (S/P/Bld) [Vol rate/Area] mL/min/{1.73_m2} ml/min/1.7 3m2 [facility] Comment on above: Stage Description GF R, [...] Vol. 139 (2) pg 137-147. Performed at [facility] [address] [place] [address] HGB,HCTon 02-08-2022 Hematocrit (Bld) [Volume fraction] 37.3 % Low 42.0-52.0 [facility] Comment on above: Performed By: #### P OCGL #### [employer] [address] [place] [address] Hemoglobin (Bld) [Mass/Vol] 11.4 g/dL Low 14.0-18.0 [facility] Comment on above: Performed By: #### P OCGL #### [facility] [address] [place] [address] Hemoglobin and Hematocriton 02-08-2022 Hematocrit (Bld) [Volume fraction] 37.3 % Low 42.0 - 52.0 % [facility] Comment on above: Performed at [facility] [employer] [facility] [address] [place] [address] Hemoglobin.gastroi ntestinal spec 1 Ql (Stl) 11.4 Low [facility] Interpretation and review of laboratory results Abnormal [facility] Hemoglobin and hematocrit, b loodon 02-08-2022 Hematocrit (Bld) [Volume fraction] 36.9 % Low 42.0 - 52.0 % [facility] Comment on above: Performed at [facility] [employer] [facility] [address] [place] [address] Hemoglobin.gastroi ntestinal spec 1 Ql (Stl) 11.6 Low [facility] Interpretation and review of laboratory results Abnormal [facility] No Panel Informationon 02-08 Interpretation and review of laboratory results Abnormal [facility] Interpretation and review of laboratory results Abnormal [facility] POCT Glucoseon 02-08-2022 Glucose [Mass/Vol] 71 mg/dL 70 - 108 mg/dl [facility] Comment on above: Performed at [facility] [employer] [facility] [address] [place] [address] Health Glucose [Mass/Vol] 111 mg/dL High 70 - 108 mg/dl [facility] Comment on above: Performed at [facility] [employer] [facility] [address] [place] [address] Interpretation and review of laboratory results Abnormal [facility] Glucose [Mass/Vol] 66 mg/dL Low 70 - 108 mg/dl [facility] Comment on above: Performed at [facility] [employer] [facility] [address] [place] [address] Interpretation and review of laboratory results Abnormal [facility] Glucose [Mass/Vol] 116 mg/dL High 70 - 108 mg/dl [facility] Comment on above: Performed at [facility] [employer] [facility] [address] [place] [address] Interpretation and review of laboratory results Abnormal [facility] Glucose [Mass/Vol] 68 mg/dL Low 70 - 108 mg/dl [facility] Comment on above: Performed at [facility] [employer] [facility] [address] [place] [address] Interpretation and review of laboratory results Abnormal [facility] Glucose [Mass/Vol] 101 mg/dL 70 - 108 mg/dl [facility] Comment on above: Performed at [facility] [employer] [facility] [address] [place] [address] Health Glucose [Mass/Vol] 126 mg/dL High 70 - 108 mg/dl [facility] Comment on above: Performed at [facility] [employer] [facility] [address] [place] [address] Interpretation and review of laboratory results Abnormal [facility] PROCALCITONINon 02-08-2022 PROCALCITONIN 0.08 ng/mL Normal 0.01-0.09 [facility] Comment on above: Result Comment: Susp ected [...] entered into the Change in Procalcitonin Calculator (Oxigene.cbbbrs-vhn-otxllapcfe.iCarsClub) to determine the patient's Mortality Risk Prognosis. In healthy neonates, plasma Procalcitonin (PCT) concentrations increase gradually after , reaching peak values at about 24 hours of age then decrease to normal values below 0.5 ng/mL by 48-72 hours of age. Performed By: #### P OCGL #### [employer] [address] [place] [address] Procalcitoninon 02-08-2022 Procalcitonin 0.08 ng/mL 0.01 - 0.09 ng/mL [facility] Comment on above: Suspected Sepsis: <0.50 ng/mL [...] entered into the Change in Procalcitonin Calculator (Workablespsmwjy-nfa-oelqpyqadl.iCarsClub) to determine the patient's Mortality Risk Prognosis. In healthy neonates, plasma Procalcitonin (PCT) concentrations increase gradually after , reaching peak values at about 24 hours of age then decrease to normal values below 0.5 ng/mL by 48-72 hours of age. Performed at [address] SCAN OF BLOOD SMEARon 2021 SCAN OF BLOOD SMEAR see below Normal [facility] Comment on above: Result Comment: Crit erbrigid Exceeded; Scan of Differential Slide Performed Performed By: #### P OCGL #### [facility] [address] [place] [address] Scan of Blood Smearon 2021 SCAN OF BLOOD SMEAR see below [facility] Comment on above: Criteria Exceeded; S can of Differential Slide Performed Performed at [address] XR CHEST PORTABLEon 02-09-20 22 Prominent left basil ar opacity as evidence for atelectasis and/or infiltrate. This report has been created using voice recognition software. It may contain minor errors which are inherent in voice recognition technology. Final report electronically signed by Dr. Romel Maldonado DO, MD on 02/08/2022 10:26 AM [facility] Romel Nguyen DO - 02/08/2022 PROCEDURE: XR [...] Maldonado DO, MD on 02/08/2022 10:26 AM [employer] Phone: Radiology Study observation (narrative) [employer] Phone: XR CHEST PORTABLEOrdered By: Romel Maldonado on 02-08-2022 [employer] Work Phone: GLUCOSE POCon 02-07-2022 Glucose [Mass/Vol] 132 mg/dL High 70-108 [facility] Comment on above: Performed By: #### C BCND, PT, APTT, BMP, ANION, EGFR1 #### [facility] [address] [place] [address] Glucose [Mass/Vol] 118 mg/dL High 70-108 [facility] Comment on above: Performed By: #### C BCND, PT, APTT, BMP, ANION, EGFR1 #### [facility] [address] [place] [address] Glucose [Mass/Vol] 77 mg/dL Normal 70-108 [facility] Comment on above: Performed By: #### P OCGL #### [facility] [address] [place] [address] POCT Glucoseon 02-07-2022 Glucose [Mass/Vol] 132 mg/dL High 70 - 108 mg/dl [facility] Comment on above: Performed at [facility] [address] [place] [address] Interpretation and review of laboratory results Abnormal [facility] [employer] Glucose [Mass/Vol] 118 mg/dL High 70 - 108 mg/dl [facility] Comment on above: Performed at [facility] [address] [place] [address] Interpretation and review of laboratory results Abnormal [facility] [employer] Glucose [Mass/Vol] 77 mg/dL 70 - 108 mg/dl [facility] Comment on above: Performed at [facility] [address] [place] [address] A4 Data TYPE AND SCREENon 02-07-2022 ABO A A4 Data Rh Factor Negative [facility] [email or web address] [facility] TYPE AND SCREEN CAPTUREon ABO CAPTURE A Normal [facility] Comment on above: Performed By: #### C BCND, PT, APTT, BMP, ANION, EGFR1 #### [facility] [address] [place] [address] INDIRECT ARVIN CAPTURE Negative Normal [facility] Comment on above: Performed By: #### C BCND, PT, APTT, BMP, ANION, EGFR1 #### [employer] [address] [place] [address] RH CAPTURE (2 D CLONES) Negative Normal [facility] Comment on above: Performed By: #### C BCND, PT, APTT, BMP, ANION, EGFR1 #### [employer] [address] [place] [address] XR LUMBAR SPINE 1 VWon 02-07 XR [...] Wicho Allen MD 02/07/22 Final result Normal [facility] Postop appearance of the lumbar spine. This report has been created using voice recognition software. It may contain minor errors which are inherent in voice recognition technology. Final report electronically signed by Dr. Wicho Allen on 02/07/2022 2:28 PM [facility] MOBILE LATERAL LUMBA R SPINE: CLINICAL INFORMATION: L2 S1 decompression, posterior COMPARISON: Earlier film same date, 1120 hours. TECHNIQUE: A single lateral mobile view of the lumbar spine was obtained following surgery performed by Dr. Loza. FINDINGS: Posterior lumbar fusion has been performed, with the pedicle screws and rods extending from L2 to S1. The lumbar vertebra are normally aligned. [facility] Wicho Allen MD - 02/07/2022 MOBILE [...] Dr. Wicho Allen on 02/07/2022 2:28 PM [facility] Phone: Lateral film of the lumbar spine during surgery. Please refer to the operative note for further details. This report has been created using voice recognition software. It may contain minor errors which are inherent in voice recognition technology. Final report electronically signed by Dr [address]Mlton [address] on 02/07/2022 2:17 PM [facility] Milton Somers MD - 02/07/2022 PROCEDURE: XR [...] Dr Milton Way on 02/07/2022 2:17 PM [facility] Phone: Radiology Study observation (narrative) [facility] Phone: Radiology Study observation (narrative) [facility] Phone: XR LUMBAR SPINE 1 VWOrdered By: Wicho Allen on 02-07-2022 [employer] Phone: XR LUMBAR SPINE 1 VWOrdered By: Milton Way on 02-07-2022 [employer] ANION GAPon 01-23-2022 Anion gap [Moles/Vol] 10.0 mmol/L Normal 8.0-16.0 [facility] Comment on above: Result Comment: ANIO N GAP = Sodium -(Chloride + CO2) Performed By: #### P OCGL #### [place] [address] APTTon 01-23-2022 aPTT Coag (Bld) [Time] 35.1 s Normal 22.0-38.0 [facility] Comment on above: Result Comment: Ther apeutic Heparin Reference Range= 60-95 seconds (corresponds to 0.3 to 0.7 u/mL Anti-Xa factor activity) Performed By: #### C BCND, PT, APTT, BMP, ANION, EGFR1 #### [place] [address] BASIC METABOL PANELon 2021 Calcium [Mass/Vol] 9.8 mg/dL Normal 8.5-10.5 [facility] Comment on above: Performed By: #### C BCND, PT, APTT, BMP, ANION, EGFR1 #### [facility] [employer] [address] [place] [address] Chloride [Moles/Vol] 104 mmol/L Normal 98-111 [facility] Comment on above: Performed By: #### C BCND, PT, APTT, BMP, ANION, EGFR1 #### [employer] [address] [address] CO2 [Moles/Vol] 29 mmol/L Normal 23-33 [facility] Comment on above: Performed By: #### C BCND, PT, APTT, BMP, ANION, EGFR1 #### [employer] [address] [place] [address] Creatinine [Mass/Vol] 1.0 mg/dL Normal 0.4-1.2 [facility] Comment on above: Performed By: #### C BCND, PT, APTT, BMP, ANION, EGFR1 #### [employer] [address] [place] [address] Glucose [Mass/Vol] 87 mg/dL Normal 70-108 [facility] Comment on above: Performed By: #### C BCND, PT, APTT, BMP, ANION, EGFR1 #### [place] [address] Potassium [Moles/Vol] 4.6 mmol/L Normal 3.5-5.2 [facility] Comment on above: Performed By: #### C BCND, PT, APTT, BMP, ANION, EGFR1 #### [place] [address] Sodium [Moles/Vol] 143 mmol/L Normal 135-145 [facility] Comment on above: Performed By: #### C BCND, PT, APTT, BMP, ANION, EGFR1 #### [place] [address] Urea nitrogen [Mass/Vol] 21 mg/dL Normal 7-22 [facility] Comment on above: Performed By: #### C BCND, PT, APTT, BMP, ANION, EGFR1 #### [place] [address] CBC NO DIFFERENTIALon 2021 Erythrocyte distribution width (RBC) [Ratio] 13.7 % Normal 11.5-14.5 [facility] Comment on above: Performed By: #### C BCND, PT, APTT, BMP, ANION, EGFR1 #### [place] [address] Hematocrit (Bld) [Volume fraction] 51.9 % Normal 42.0-52.0 [facility] Comment on above: Performed By: #### C BCND, PT, APTT, BMP, ANION, EGFR1 #### [place] [address] Hemoglobin (Bld) [Mass/Vol] 16.3 g/dL Normal 14.0-18.0 [facility] Comment on above: Performed By: #### C BCND, PT, APTT, BMP, ANION, EGFR1 #### [place] [address] MCH (RBC) [Entitic mass] 30.1 pg Normal 26.0-33.0 [facility] Comment on above: Performed By: #### C BCND, PT, APTT, BMP, ANION, EGFR1 #### [place] [address] MCHC (RBC) [Mass/Vol] 31.4 g/dL Low 32.2-35.5 [facility] Comment on above: Performed By: #### C BCND, PT, APTT, BMP, ANION, EGFR1 #### [place] [address] MCV (RBC) [Entitic vol] 95.8 fL High 80.0-94.0 [facility] Comment on above: Performed By: #### C BCND, PT, APTT, BMP, ANION, EGFR1 #### [place] [address] PLATELET 149 thou/mm3 Normal 130-400 [facility] Comment on above: Performed By: #### C BCND, PT, APTT, BMP, ANION, EGFR1 #### [place] [address] Platelet mean volume (Bld) [Entitic vol] 12.6 fL High 9.4-12.4 [facility] Comment on above: Performed By: #### C BCND, PT, APTT, BMP, ANION, EGFR1 #### [place] [address] RBC 5.42 mill/mm3 Normal 4.70-6.10 [facility] Comment on above: Performed By: #### C BCND, PT, APTT, BMP, ANION, EGFR1 #### [place] [address] RDW-SD 48.8 fL High 35.0-45.0 [facility] Comment on above: Performed By: #### C BCND, PT, APTT, BMP, ANION, EGFR1 #### [place] [address] WBC 5.8 thou/mm3 Normal 4.8-10.8 [facility] Comment on above: Performed By: #### C BCND, PT, APTT, BMP, ANION, EGFR1 #### [place] [address] EKG 12-LEADon 01-23-2022 EKG 12-LEAD 55 55 168 90 438 419 24 -23 Sinus bradycardia Otherwise normal ECG No previous ECGs available Confirmed by BALA SCHRADER MD ([id number]) on 01/23/2022 7:54:09 PM [email or web address] Date=04-21-2022&Time=11%3a32% 3a52%3a00&TestType=ECG&Site=3 &OutputType=PDF&Ext=PDF Normal [facility] GFR, ESTIMATEDon 01-23-2022 GFR/1.73 sq M.predicted MDRD (S/P/Bld) [Vol rate/Area] 75 mL/min/{1.73_m2} Abnormal [facility] Comment on above: Result Comment: Lilliam crum [...] 137-147. Performed By: #### P OCGL #### [facility] [address] [place] [address] HEMOGLOBIN A1Con 01-23-2022 Glucose [Mass/Vol] 99 mg/dL Normal 70-126 [facility] Comment on above: Performed By: #### C BCND, PT, APTT, BMP, ANION, EGFR1 #### [employer] [employer] [address] [place] [address] HbA1c (Bld) [Mass fraction] 5.3 % Normal 4.4-6.4 [facility] Comment on above: Performed By: #### C BCND, PT, APTT, BMP, ANION, EGFR1 #### [employer] [address] [place] [address] NASAL COMPLETE SCREEN RT-PCR on 01-23-2022 MRSA SCREEN RT-PCR Positive Abnormal [facility] Comment on above: Result Comment: MRSA TARGET DNA DETECTED by Real Time - Polymerase Chain Reaction. A positive test result does not necessarily indicate the presence of viable organisms. It is, however, presumptive for the presence of MRSA DNA. . Performed By: #### P OCGL #### [place] [id number] SA SCREEN RT-PCR Positive Abnormal [facility] Comment on above: Result Comment: Stap hylococcus aureus (SA) target DNA DETECTED by Real Time - Polymerase Chain Reaction. A positive test result does not necessarily indicate the presence of viable organisms. It is, however presumptive for the presence of SA DNA. Performed By: #### P OCGL #### [place] [id number] PROTHOMBIN TIMEon 01-23-2022 INR Coag (Bld) [Relative time] 1.06 {INR} Normal 0.85-1.13 [facility] Comment on above: Result Comment: ---- -----INDICATION INR Reference Range DVT, PE, AF, AMI, tissue heart valve 2.0 to 3.0 Mechanical prosthetic valves 2.5 to 3.5 Performed By: #### C BCND, PT, APTT, BMP, ANION, EGFR1 #### [place] [id number] [facility] CARDIAC STRESS/REST INJE CTIONon 09-05-2021 [facility] CARDIAC STRESS/REST INJECTION Patient Name: ALISIA CORREA STUDY: MYOCARDIAL PERFUSION STRESS TEST WITH LEXISCAN Performing facility: [facility], [address] [place] [address], [address], [place] [address] [facility] Provider: Ren Watson MD, FACC PCP: Dr. Ellen Crabtree Supervising provider: Milagros Mcnally MD, FACC INDICATION: Chest Pain; Dyspnea HISTORY: Gender: M; Age: 60 y/o ; Height: 0 cm; Weight: 0 kg. High Cholesterol; Chest Pain; Syncope; Parkinson's Currently smoking. COMPARISON: Previous nuclear testing completed [id number] at [facility]. ACCESSION NUMBER(S): [id number]; [id number]; [id number] ORDERING CLINICIAN: REN WATSON TECHNIQUE: ONE DAY [...] Electronically signed by: REN WATSON MD Normal [facility] No Panel Informationon 09-05 Normal -[facility] [address] [place] Work Phone: Office [...] we can help. You may also call [phone] for free resources and assistance.; Status:Complete - [...] of Parkinson's disease followed by neurology from [place] on medical therapy. The patient has been [...] PCP. 7?Parkinson's disease followed by neurology from [place]. 8?obesity, encouraged the patient to reduce caloric [...] History o (more content not included)... Normal [employer] Tobacco Screening.on 021 Fall risk assessment b) One or more falls in the last year [facility] y [address] DO Work Phone: Tobacco use status CP a) Yes [facility] Tang y 250 DO Work Phone: Tobacco Screening. Yes [facility] Tang y 250 DO Work Phone: CT C-SPINE W RECON DATA -NBo n 09-17-2020 CT C-SPINE W RECON DATA -NB * * *Final Report* * * DATE OF EXAM: Sep 17 2020 12:01PM [facility] 0478 - CT C-SPINE W RECON DATA [...] Counting reference: Craniocervical junction. Anatomic Variants: None. Sheet Combining Operator (topogram) images: Postop changes of the [...] vertebrae with counting from the craniocervical junction. Vice President Marketing & Development: [employer] Transcribe Date/Time: Sep 17 2020 12:05P Dictated by : NICO MARTIN MD This examination was interpreted and the report reviewed and electronically signed by: NICO MARTIN MD on Sep 17 2020 12:08PM EST [id number] [facility] CTA HEAD WO/W IVCONon 2019 CTA HEAD WO/W IVCON * * *Final Report* * * DATE OF EXAM: Sep 17 2020 12:01PM [facility] 0023 - CTA HEAD WO/W IVCON / [...] Applicable Spot Sign Number: Not Applicable NECK: Sheet Combining Operator (topogram) images: Postop changes of ACDF [...] neck arteries. Essentially normal noncontrast CT brain. Vice President Marketing & Development: [facility] Transcribe Date/Time: Sep 17 2020 11:56A Dictated by : NICO MARTIN MD This examination was interpreted and the report reviewed and electronically signed by: NICO MARTIN MD on Sep 17 2020 12:09PM EST [id number] Normal [facility] CTA NECK W IVCONon 0 CTA NECK W IVCON * * *Final Report* * * DATE OF EXAM: Sep 17 2020 12:01PM [facility] 0024 - CTA NECK W IVCON / [...] Applicable Spot Sign Number: Not Applicable NECK: Sheet Combining Operator (topogram) images: Postop changes of ACDF [...] neck arteries. Essentially normal noncontrast CT brain. Vice President Marketing & Development: [facility] Transcribe Date/Time: Sep 17 2020 11:56A Dictated by : NICO MARTIN MD This examination was interpreted and the report reviewed and electronically signed by: NICO MARTIN MD on Sep 17 2020 12:09PM EST [id number] [facility] PROGRESSon 09-17-2020 PROGRESS HNO ID: [id number] Author: NIKKIE Brownlee Service: Radiology Author Type: Clinical Weighing Station Operator Type: Progress Notes Filed: 09/17/2020 11:40 AM [...] NIKKIE Brownlee September 17, 2020 11:39 AM [facility] Kailash 09-11-2020 CNPN Telephone (AVXRPR) ALISIA CORREA ([id number]) 1960 M Date Time Provider Department 09/11/20 [...] More... Hyperlipidemia [E78.5] 12/07/2017 More... Ulcerative lesion [RAC8754] 12/07/2017 07/21/2019 Shoulder arthritis [M19.019] 12/29/2017 Status [...] gammopathy of unknown signific*09/15/2018 PD (Parkinson's disease) ([facility]) [G20] 04/13/2019 More... Dysphagia [R13.10] 04/13/2019 Psychosis [...] Encounter Status:Closed by MAKI JEONG on 09/11/[address] [facility] [address] LUMBAR SPINE WO IVCONon 1 [facility] No Panel Informationon 06-[address] [facility] [address] THORACIC SPINE WO IVCONon 06-15-2020 [facility] ALLIED HEALTHon 05-04-2020 ALLIED HEALTH HNO ID: [id number] Author: Daniela (Rn) ALFONSO Castro Service: Infection Prevention Author Type: Registered Nurse Type: Allied Health Filed: 05/04/2020 8:19 AM Note Text: ISOLATION NOTE Admission Date: 05/03/2020 Type of Isolation Recommended: Contact Precautions ([place] Isolation Sign) Indication: Carbapenem-resistant Enterobacteriaceae (CRE) Date Isolation Initiated: 05/04/2020 Anticipated Duration of Isolation: Duration of hospitalization Type and Date of Positive Test(s): urine culture 10/18/2019 SIGNATURE: Daniela Castro RN MSN PATIENT NAME: Alisia Correa DATE: May 04, 2020 TIME: 8:17 AM PAGER/CONTACT #: [phone] Normal [facility] Basic Metabolic Panlon 05-04 Anion gap [Moles/Vol] 8 mmol/L Low 9-18 [facility] Calcium [Mass/Vol] 8.4 mg/dL Low 8.5-10.[address] [facility] ospital Chloride [Moles/Vol] 103 mmol/L Normal 97-105 [facility] CO2 [Moles/Vol] 25 mmol/L Normal 22-30 [facility] Creatinine [Mass/Vol] 1.11 mg/dL Normal 0.73-1.22 [facility] eGFR- Amer. >[address] [facility] ospital GFR/1.73 sq M predicted among non-blacks MDRD (S/P/Bld) [Vol rate/Area] mL/min/{1.73_m2} Normal [facility] Comment on above: Result Comment: eGFR [...] ospital Comment on above: Result Comment: The [place] Diabetes Association (ADA) provides guidance for cutoff [...] Standards of Medical Care in Diabetes 2016, [place] Diabetes Association. Diabetes Care. 2016.39(Suppl 1). Potassium [Moles/Vol] 4.1 mmol/L Normal 3.7-5.1 [facility] Sodium [Moles/Vol] 136 mmol/L Normal 136-144 [facility] Urea nitrogen [Mass/Vol] 16 mg/dL Normal 9-24 [facility] CASE MANAGEMon 05-04-2020 CASE MANAGEM HNO ID: [id number] Author: Ashley (Rn) ALFONSO Sands Service: Care [...] 04, 2020 TIME: 10:59 AM PAGER/CONTACT #: [phone] Normal [facility] CASE MGT INIT [facility] 2019 CASE MGT INIT [facility] HNO ID: [id number] Author: Ashley Nelson) ALFONSO Sands Service: Care Management Author Type: Registered Nurse Type: Care Mgt Initial Assessment Filed: 05/04/2020 10:16 AM Note Text: CARE MANAGEMENT: ASSESSMENT AND DISCHARGE PLAN SERVICE DATE: May 04, 2020 SERVICE TIME: 10:15 AM PRIMARY CARE PHYSICIAN: Ellen Crabtree DO ADMISSION STATUS: Extended Recovery MEDICAL: [employer] MEDICARE PPO 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 Last discharge within 30 days: No Advance Directive: Current Advance Directive: Health Care Power of Boat Builder;Living Will In Chart: No Hand Worker Attempted to Assist with AD Completion: Yes [...] Information Primary Emergency Contact: Dipti Correa Address: [address] [place] [address] Mobile Relation: Spouse Supportive Patient Contact:: Yes [...] for meeting these needs: Outpatient therapy at [facility] Patient's perception of need for this admission: hip replacement Medication Adherance I am convinced of the importance of my prescription medication: 0 - Agree Completely I worry that my prescription medication will do more harm than good to me : 0 - Disagree Completely I feel financially burdened by my iaw-zx-[id number] expenses for my prescription medication:: 0 - Disagree Completely Risk Score: 0 Patient is categorized as: Low risk < 2 Are you interested in bedside delivery of your medications? Yes Is Patient Psychosocially Complex?: No ASSESSMENT AND PLAN: Medical Needs: Medical Needs: None Psychosocial Needs: Psychosocial Needs: None FREEDOM OF CHOICE EXPLAINED: [place] of Choice Given: No Reason Not Given: No placements necessary POTENTIAL TRANSITION PLANS Outpatient Therapy Pt from home with spouse. Plan is Outpatient PT at [facility]. Patient does not have an appointment. Call placed to [facility] to schedule appointment. Waiting for return call. SIGNATURE: Ashley Sands RN PATIENT NAME: Alisia Correa DATE: May 04, 2020 TIME: 10:14 AM PAGER/CONTACT #: [phone] Normal [facility] CBCon 05-04-2020 Absolute nRBC <0.01 [facility] width (RBC) [Ratio] 14.1 % Normal 11.5-15.0 [facility] Hematocrit (Bld) [Volume fraction] 39.3 % Normal 39.0-51.0 [facility] Hemoglobin (Bld) [Mass/Vol] 12.6 g/dL Low 13.0-17.0 [facility] MCH (RBC) [Entitic mass] 30.1 pG Normal 26.0-34.0 [facility] MCHC (RBC) [Mass/Vol] 32.1 g/dL Normal 30.5-36.0 [facility] MCV (RBC) [Entitic vol] 94.0 fL Normal 80.0-100.0 [facility] Platelet mean volume (Bld) [Entitic vol] 12.8 fL High 9.0-12.7 [facility] Platelets (Bld) [#/Vol] 134 10*3/uL Low 150-400 [facility] RBC (Bld) [#/Vol] 4.18 10*6/uL Low 4.20-6.00 [facility] WBC (Bld) [#/Vol] 7.60 10*3/uL Normal 3.70-11.00 [facility] NURSING PROGon 05-04-2020 NURSING PROG HNO ID: [id number] Author: Renae (Rn) ALFONSO Greco Service: ? [...] was completed by: Renae Greco RN Normal [facility] PLAN OF CAREon 05-04-2020 PLAN OF CARE HNO ID: [id number] Author: Rita Arias (Hand Gluer And Slicer) Service: ? Author Type: ? Type: Plan [...] ointment Commonly known as: BACTROBAN Rita Arias (Hand Gluer And Slicer) PAGER: yvan May 04, 2020 4:29 PM [facility] PROGRESSon 05-04-2020 PROGRESS HNO ID: [id number] Author: Steven Guevara Jr. Service: Orthopaedic Surgery [...] ([facility]) Dysphagia Psychosis Due to Parkinson's Disease ([facility]) Osteoarthritis of Left Hip Open Wound [...] 1751 -- 05/03/20 1800 pneumatic compression stockings ([place]) 05/03/20 1800 graduated compression stockings ([place], [place]) 05/03/20 1800 activity - mobilize patient ([place]) 05/03/20 1800 activity - mobilize patient (vt,ri) 05/03/20 1800 activity - mobilize patient (vt,ri) VTE Prophylaxis: VTE prophylaxis appropriate POST OPERATIVE COMPLICATIONS: Complicated by: uneventful/none SIGNATURE: Steven Guevara Jr, MD PATIENT NAME: Alisia Correa DATE: May 04, 2020 TIME: 7:54 AM PAGER/CONTACT #: [phone] [facility] THERAPY NTon 05-04-2020 THERAPY NT HNO ID: [id number] Author: Nusrat (Ot/Kali Gallegos Service: Occupational Therapy Author Type: Occupational Therapist Type: Therapy (PT/OT/Speech/Resp) Filed: 05/04/2020 1:20 PM Note Text: Occupational Therapy SERVICE DATE: 05/04/2020 SERVICE TIME: 1145 to 1251 ROOM: [place] [address] Recommended Discharge Disposition: Home Anticipated Discharge Needs: [...] of daily living (ADL) Interventions Provided: Evaluation;Self Chcf Management (22336) $ Evaluation-Low (50072) Billed Units: 1 unit Self Chcf Management (47519) Treatment Minutes: 51 3 units Skilled Intervention(s): [...] car transfer with instructions given to have full service vending driver (as Patient is not allowed to [...] Environment Patient Lives With: Spouse Assistance Available: full time babysitter(spouse works real time analyst but workplace is nearby and flexib ) Entry To Home: With Rail;Stairs Number Of Stairs Into Home: 2 Number Of Stairs To Bed/Bath: 1st floor bed and bath Tub/Shower Type: WIS with shower chair, grab bars, HHS Laundry: 1ST FLOOR Equipment Owned: Cane;Hand Held Shower;Grab Bars-Shower;Standard Walker;Commode-Raised;Shower Chair;Lift Chair;ADL Kit;Manufacturing Technology Analyst;Wheeled Walker Prior Functional Level: Within Functional Limits Prior Functional Level Comments: 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] Diagnosis: Reduced mobility-other Interventions Provided: Evaluation;Therapeutic Exercise (43667);Therapeutic Activity (48230);Gait Training (27507) $ Evaluation-Moderate (07493) Billed Units: 1 unit Therapeutic Exercise (87093) Treatment Minutes: 6 Skilled Intervention(s): Instruction in therapeutic exercise per THR protocol: AP, QS, GS, HS, abd, LAQ Verbal and tactile cuing provided for each. Written handouts provided and reviewed with patient today Therapeutic Activity (14828) Treatment Minutes: 10 1 unit Skilled Intervention(s): [...] 2/3 precautions without cues today Gait Training (17956) Treatment Minutes: 11 1 unit Skilled Intervention(s): [...] Environment Patient Lives With: Spouse Assistance Available: full time babysitter(spouse works real time analyst but workplace is nearby and flexib ) Entry To Home: With Rail;Stairs Number Of Stairs Into Home: 2 Number Of Stairs To Bed/Bath: 1st floor bed and bath Tub/Shower Type: WIS with shower chair, grab bars, HHS Laundry: 1ST FLOOR Equipment Owned: Cane;Hand Held Shower;Grab Bars-Shower;Standard Walker;Commode-Raised;Shower Chair;Lift Chair;ADL Kit;Manufacturing Technology Analyst;Wheeled Walker Prior Functional Level: Within Functional Limits Prior Functional Level Comments: 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 Author Type: Physician Type: Anesthesia Postprocedure Evaluation Filed: 05/03/2020 4:28 PM Note Text: POST ANESTHESIA EVALUATION NOTE : 1960 Procedure Summary Date: 05/03/20 Room / Location: [place] [address] / OR Anesthesia Start: 1245 Anesthesia Stop: [...] May 03, 2020 TIME: 4:28 PM CSN: [id number] [facility] ANES PRE-OPon 05-03-2020 ANES PRE-OP HNO ID: [id number] Author: Coreen Ryan Service: ? Author Type: [...] May 03, 2020 TIME: 10:37 AM CSN: [id number] [facility] Basic Metabolic Panlon 05-03 Anion gap [Moles/Vol] 8 mmol/L Low 9-18 [facility] Calcium [Mass/Vol] 8.7 mg/dL Normal 8.5-10.2 [facility] Chloride [Moles/Vol] 105 mmol/L Normal 97-105 [facility] CO2 [Moles/Vol] 25 mmol/L Normal 22-30 [facility] Creatinine [Mass/Vol] 1.20 mg/dL Normal 0.73-1.22 [facility] eGFR- Amer. >60 Normal [facility] GFR/1.73 sq M predicted among non-blacks MDRD (S/P/Bld) [Vol rate/Area] mL/min/{1.73_m2} Normal [facility] Comment on above: Result Comment: eGFR [...] GFR. Glucose [Mass/Vol] 107 mg/dL High 74-99 [facility] Comment on above: Result Comment: The [place] Diabetes Association (ADA) provides guidance for cutoff [...] Standards of Medical Care in Diabetes 2016, [place] Diabetes Association. Diabetes Care. 2016.39(Suppl 1). Potassium [Moles/Vol] 4.3 mmol/L Normal 3.7-5.1 [facility] Sodium [Moles/Vol] 138 mmol/L Normal 136-[address] [facility]ital Urea nitrogen [Mass/Vol] 18 mg/dL Normal 9-24 [facility] CBCon 05-03-2020 Absolute nRBC <0.01 [facility]0.01 [facility] E[facility]th[facility] distribution width (RBC) [Ratio] 14.1 % Normal 11.5-15.0 [facility] Hematocrit (Bld) [Volume fraction] 43.9 % Normal 39.0-51.0 [facility] Hemoglobin (Bld) [Mass/Vol] 14.3 g/dL Normal 13.0-17.0 [facility] MCH (RBC) [Entitic mass] 30.2 pG Normal 26.0-34.0 [facility] MCHC (RBC) [Mass/Vol] 32.6 g/dL Normal 30.5-36.0 [facility] MCV (RBC) [Entitic vol] 92.8 fL Normal 80.0-100.0 [facility] Platelet mean volume (Bld) [Entitic vol] 11.7 fL Normal 9.0-12.7 [facility] Platelets (Bld) [#/Vol] 145 10*3/uL Low 150-400 [facility] RBC (Bld) [#/Vol] 4.73 10*6/uL Normal 4.20-6.00 [facility] WBC (Bld) [#/Vol] 9.79 10*3/uL Normal 3.70-11.00 [facility] CONSULTon 05-03-2020 CONSULT HNO ID: [id number] Author: Henry Collins Service: Hospital Medicine Author Type: Physician Type: Consults Filed: 05/03/2020 8:50 PM Note Text: DEPARTMENT OF HOSPITAL MEDICINE INITIAL CONSULT SERVICE DATE: 05/03/2020 SERVICE TIME: 7:44 PM Primary Care Physician: Ellen Crabtree, DO NIGHT AND WEEKEND COVERAGE: [place] COVERAGE: Days: [phone], please contact day attending provider ( please page admission pager [phone] to find out day attending provider for [...] Laterality Date - COLONOSCOP W/ OR W/O [facility] SPEC Colonoscopy - EGD W/O OR W/BRUSH/WASH [...] SCM 08/06/2010 Performed by GEORGINA SEAMAN at [facility] - TOTAL KNEE REPLACEMENT Left 2012 [...] 03, 2020 TIME: 7:44 PM PAGER/CONTACT #: [facility] NURSING PROGon 05-03-2020 NURSING PROG HNO ID: [id number] Author: Renae JerryRn) ALFONSO Greco Service: ? [...] note was completed by: Renae Greco RN [facility] OPERATIVE NOon 05-03-2020 OPERATIVE NO HNO ID: [id number] Author: Steven Guevara Jr. Service: Orthopaedic Surgery Author Type: Physician Type: Operative Report Filed: 05/03/2020 3:08 PM Note Text: [facility] OPERATIVE REPORT PATIENT NAME: Alisia Correa AGE: [age] year old LOG ID: [id number] Surgery Date: 05/03/2020 SURGEON: Steven Guevara M.D. ASSISTANT PROFESSOR OF PHYSICS: Vj Jorge PA-C, his assistance consisted of [...] banked allogenic blood if medically necessary. IMPLANTS: [employer] Total Hip System SIZE TYPE Acetabulum [...] Proximal femoral osteotomy was performed. The box office clerk osteotome was utilized to lateralize the starting [...] DATE: May 03, 2020 TIME: 2:57 PM [facility] PROGRESSon 05-03-2020 PROGRESS HNO ID: [id number] Author: Tracey Khan (Rt) Service: Radiology Author Type: Weighing Station Operator Type: Progress Notes Filed: 05/03/2020 4:01 PM [...] RT Kathy May 03, 2020 4:01 PM [facility] PROGRESS HNO ID: [id number] Author: Steven Guevara Jr. Service: Orthopaedic Surgery Author Type: Physician Type: Progress Notes Filed: 05/03/2020 8:02 AM Note Text: The patient was offered a surgery/procedure at a [facility] [place]. The surgeon/proceduralist and patient have discussed in [...] surgery/procedure as indicated on the consent form. [facility] PT EDon 05-03-2020 PT ED HNO ID: [id number] Author: Kaylee JerryRn) ALFONSO Sunshine Service: ? [...] LEARNING: None PHYSICAL LIMITATIONS AFFECTING LEARNING: None [facility] SURGICAL PATHOLOGYon 020 SURGICAL PATHOLOGY Specimen originated from [facility] Specimen #: [id number] Submitting Physician: STEVEN GUEVARA JR, MD FINAL [...] reamings. The additional tissue appears grossly unremarkable. Spot Washer sections are submitted in formalin as follows: A1 soft tissue, A2 bone after a period of decalcification. ARH/adb 05/04/2020 Gross examination performed at [facility] [place] [address] Date of Report: 05/09/2020 Date of Procedure: 05/03/2020 Date of Receipt: 05/03/2020 Submitted by: STEVEN GUEVARA JR, MD Location: [facility] Diagnostic interpretation performed at [facility], [address] [place] [address]. CLIA Number: [id number] Normal [facility] Reference Lab Comment on above: Performed By: [...] IMPRESSION: Status post hip arthroplasty, normal alignment Vice President Marketing & Development: PSCB Transcribe Date/Time: May 03 2020 4:05P Dictated by : JUAN LUIS RUSSELL MD This examination was interpreted and the report reviewed and electronically signed by: JUAN LUIS RUSSELL MD on May 03 2020 4:07PM EST [id number] [facility] ALIS[facility] CORREA ([id number]) 1960 M Date Time Provider Department 05/02/20 VJ JORGE) AVPSUMA During your visit today, we recorded the following information about you: Vj Joreg PA-C 05/02/2020 10:43 AM Signed Called patient [...] Hives Date Reviewed: 04/24/2020 Reviewed by: Britney (Grade School Teacher) Trent - Fully Assessed Reason for Visit: [...] More... Hyperlipidemia [E78.5] 12/07/2017 More... Ulcerative lesion [DIB9242] 12/07/2017 07/21/2019 Shoulder arthritis [M19.019] 12/29/2017 Status [...] Encounter Status:Closed by VJ JORGE on 05/02/20 [facility] NURSING PROGon 04-25-2020 NURSING PROG HNO ID: [id number] Author: Niyah Hinkle (Rn) ALFONSO Golden Service: [...] Golden RN April 30, 2020 2:36 PM [facility] Type and SCR (30D)on 020 ABO/RH(D) Negative [facility] HOSPon 04-12-2020 HOSP Patient:Eddi Correa MRN: Height:5' [...] of unknown significance) [D47.2] PD (Parkinson's disease) ([facility]) [G20] Dysphagia [R13.10] Psychosis due to Parkinson's [...] is scheduled for post-op Physical Therapy at [facility] ([phone])on 05/07/20 @ 2:45. They want patient to arrive 10 to 15 min early. Fax PT order to [phone]. Normal [facility] Basic Metabolic Panlon 11-09 Anion gap [Moles/Vol] 8 mmol/L Low 9-18 [facility] Calcium [Mass/Vol] 8.6 mg/dL Normal 8.5-10.2 [facility] Chloride [Moles/Vol] 101 mmol/L Normal 97-105 [facility] CO2 [Moles/Vol] 30 mmol/L Normal 22-30 [facility] Creatinine [Mass/Vol] 1.02 mg/dL Normal 0.73-1.22 [facility] eGFR- Amer. >[address] [facility] ospital GFR/1.73 sq M predicted among non-blacks MDRD (S/P/Bld) [Vol rate/Area] mL/min/{1.73_m2} Normal [facility] Comment on above: Result Comment: eGFR [...] ospital Comment on above: Result Comment: The [place] Diabetes Association (ADA) provides guidance for cutoff [...] Standards of Medical Care in Diabetes 2016, [place] Diabetes Association. Diabetes Care. 2016.39(Suppl 1). Potassium [Moles/Vol] 4.1 mmol/L Normal 3.7-5.1 [facility] Sodium [Moles/Vol] 139 mmol/L Normal 136-[address] [facility] ospital Urea nitrogen [Mass/Vol] 18 mg/dL Normal 9-24 [facility] CBCon 11-09-2019 Absolute nRBC <0.01 [facility] width (RBC) [Ratio] 13.7 % Normal 11.5-15.0 [facility] Hematocrit (Bld) [Volume fraction] 39.6 % Normal 39.0-51.0 [facility] Hemoglobin (Bld) [Mass/Vol] 12.5 g/dL Low 13.0-17.0 [facility] MCH (RBC) [Entitic mass] 30.2 pG Normal 26.0-34.0 [facility] MCHC (RBC) [Mass/Vol] 31.6 g/dL Normal 30.5-36.0 [facility] MCV (RBC) [Entitic vol] 95.7 fL Normal 80.0-100.0 [facility] Platelet mean volume (Bld) [Entitic vol] 11.8 fL Normal 9.0-12.7 [facility] Platelets (Bld) [#/Vol] 129 10*3/uL Low 150-400 [facility] RBC (Bld) [#/Vol] 4.14 10*6/uL Low 4.20-6.00 [facility] WBC (Bld) [#/Vol] 6.62 10*3/uL Normal 3.70-11.00 [facility] CONSULT PROGon 11-09-2019 CONSULT PROG HNO ID: [id number] Author: Lenora Alarcon Service: Hospital Medicine Author [...] Associate Staff, Department of Hospital Medicine Clinical Central Processing Techfairground operator [facility] Medicine, [facility] Pager [phone] / [phone] [facility] NURSING PROGon 11-09-2019 NURSING PROG HNO ID: [id number] Author: Renae (Rn) ALFONSO Greco Service: ? [...] note was completed by: Renae Greco RN [facility] PLAN OF CAREon 11-09-2019 PLAN OF CARE HNO ID: [id number] Author: Rita Arias (Hand Gluer And Slicer) Service: ? Author Type: Weighing Station Operator Type: Plan of Care Filed: 11/09/2019 10:31 AM Note Text: DATA SECURITY ADMINISTRATOR BEDSIDE DELIVERY SURVEY 1. Patient to use [facility] Bedside Delivery - NO prefer own pharmacy Insurance Information as follows: 2. Insurance card on file - N/A 3. Credit card for payment - N/A [facility] PROGRESSon 11-09-2019 PROGRESS HNO ID: [id number] Author: Demetris Naik Service: ? Author Type: Physician Plate Fitter Type: Progress Notes Filed: 11/09/2019 7:49 AM [...] discharge planning-plan for DC home today with [facility] if independent with physical therapy ACTIVE PROBLEM [...] Complication, Without Long-Term Current Use of Insulin ([facility]) Chronic Pain Syndrome Copd With Chronic Bronchitis ([facility]) Arthritis of Knee Primary Osteoarthritis of Right Knee Oa (Osteoarthritis) of Knee Glenohumeral Arthritis, Left Essential Tremor Asthma Diabetes Mellitus ([facility]) Essential Hypertension Hyperlipidemia Shoulder Arthritis Status Post Replacement of Left Shoulder Joint Crps (Complex Regional Pain Syndrome Type I) Nicotine use disorder, F17.2 Obesity, Class I, Bmi 30-34.9 Multilevel Spine Pain Iron Deficiency Anemia Secondary to Inadequate Dietary Iron Intake Complete Tear of Right Rotator Cuff Spinal Cord Stimulator Status Mgus (Monoclonal Gammopathy of Unknown Significance) Pd (Parkinson's Disease) ([facility]) Dysphagia Psychosis Due to Parkinson's Disease ([facility]) Osteoarthritis of Left Hip Open Wound [...] 0747 -- 11/08/19 1315 pneumatic compression stockings (vt,oh) 11/08/19 1315 graduated compression stockings (vt,ri) 11/08/19 1315 graduated compression stockings (vt,ri) 11/08/19 1315 activity - mobilize patient (vt,ri) 11/08/19 1315 activity - mobilize patient (vt,oh) 11/08/19 1315 activity - mobilize patient (vt,ri) VTE Prophylaxis: VTE prophylaxis appropriate POST OPERATIVE COMPLICATIONS: Complicated by: uneventful/none SIGNATURE: Demetris Naik PA-C PATIENT NAME: Alisia Correa DATE: November 09, 2019 TIME: 7:48 AM PAGER/CONTACT #: [phone] [facility] PT EDon 11-09-2019 PT ED HNO ID: [id number] Author: Shelley Givens (Pharmacist) Service: Pharmacy Author [...] medications were sent to e- [facility] [address] [facility] - [phone] [address] [facility] [address] ? aspirin, enteric coated 81 mg EC tablet ? oxyCODONE IR 5 mg immediate release tablet You can get these medications from any pharmacy You don't need a prescription for these medications ? acetaminophen 325 mg tablet Normal [facility] PT ED HNO ID: [id number] Author: Shelley Givens (Pharmacist) Service: Pharmacy Author [...] understanding of topic SHELLEY GIVENS PHARMACIST Normal [facility] THERAPY [facility] 11-09-2019 THERAPY NT HNO ID: [id number] Author: Oumou Witt (Pt) Fabio Service: Physical Therapy Author Type: Physical Therapist Type: Therapy (PT/OT/Speech/Resp) Filed: 11/09/2019 2:56 PM Note Text: Physical Therapy Treatment SERVICE DATE: 11/09/2019 SERVICE TIME: 1105 to 1150 ROOM: [place] [address] Recommended Discharge Disposition: Outpatient Physical Therapy Anticipated [...] Diagnosis: Reduced mobility-other Interventions Provided: Gait Training (06394);Therapeutic Exercise (24841) Therapeutic Exercise (29218) Treatment Minutes: 15 1 unit Skilled Intervention(s): [...] 3x/day, 2 sets for 10 Gait Training (15886) Treatment Minutes: 30 2 units Skilled Intervention(s): [...] Type: WIS with shower chair, grab bars, [facility] Laundry: 1ST FLOOR Equipment Owned: Cane;Hand [...] November 09, 2019 TIME: 2:52 PM Normal [facility] THERAPY NT HNO ID: [id number] Author: Katharina (Ot) Shanti Service: Occupational Therapy Author Type: Occupational Therapist Type: Therapy (PT/OT/Speech/Resp) Filed: 11/09/2019 2:29 PM Note Text: Occupational Therapy Evaluation SERVICE DATE: 11/09/2019 SERVICE TIME: 0850 to 46 ROOM: [place] [address] Recommended Discharge Disposition: Home Anticipated Discharge Needs: [...] living (ADL);Muscle Weakness (generalized) Interventions Provided: Evaluation;Self [facility] Management (70946) $ Evaluation-Low (51367) Billed Units: 1 unit Self [facility] Management (52969) Treatment Minutes: 38 3 units Skilled Intervention(s): [...] body dressing. Instructions and demonstration with a bearing machine operator, sock aide, dressing stick and long handled [...] DATE: November 09, 2019 TIME: 12:33 PM [facility] ANES Brian 11-08-2019 ANES POST HNO ID: [id number] Author: Ashley Guerrier Service: Anesthesiology Author Type: [...] 08, 2019 TIME: 1:16 PM PAGER/CONTACT #: [facility] ANES PREOPon 11-08-2019 ANES PREOP HNO ID: [id number] Author: Ashley Guerrier Service: Anesthesiology Author Type: [...] Complication, Without Long-Term Current Use of Insulin ([facility]) Chronic Pain Syndrome Copd With Chronic Bronchitis ([facility]) Arthritis of Knee Primary Osteoarthritis of Right Knee Oa (Osteoarthritis) of Knee Glenohumeral Arthritis, Left Essential Tremor Asthma Diabetes Mellitus ([facility]) Essential Hypertension Hyperlipidemia Shoulder Arthritis Status Post Replacement of Left Shoulder Joint Crps (Complex Regional Pain Syndrome Type I) Nicotine use disorder, F17.2 Obesity, Class I, Bmi 30-34.9 Multilevel Spine Pain Iron Deficiency Anemia Secondary to Inadequate Dietary Iron Intake Complete Tear of Right Rotator Cuff Spinal Cord Stimulator Status Mgus (Monoclonal Gammopathy of Unknown Significance) Pd (Parkinson's Disease) ([facility]) Dysphagia Psychosis Due to Parkinson's Disease ([facility]) Osteoarthritis of Left Hip PAST MEDICAL HISTORY Diagnosis Date - Durbin's esophagus - Closed fracture of rib(s), unspecified Rib fracture - Diabetes ([facility]) - Esophageal reflux BARRETS ESOPHAGUS - Hypertrophy [...] Laterality Date - COLONOSCOP W/ OR W/O [facility] SPEC Colonoscopy - EGD W/O OR W/BRUSH/WASH [...] November 08, 2019 TIME: 8:55 AM CSN: [id number] Normal [facility] Basic Metabolic Panlon 11-08 Anion gap [Moles/Vol] 11 mmol/L Normal 9-18 [facility] Calcium [Mass/Vol] 8.9 mg/dL Normal 8.5-10.2 [facility] Chloride [Moles/Vol] 106 mmol/L High 97-105 [facility] CO2 [Moles/Vol] 25 mmol/L Normal 22-30 [facility] Creatinine [Mass/Vol] 0.95 mg/dL Normal 0.73-1.22 [facility] eGFR- Amer. >60 Normal [facility] GFR/1.73 sq M predicted among non-blacks MDRD (S/P/Bld) [Vol rate/Area] mL/min/{1.73_m2} Normal [facility] Comment on above: Result Comment: eGFR [...] ospital Comment on above: Result Comment: The [place] Diabetes Association (ADA) provides guidance for cutoff [...] Standards of Medical Care in Diabetes 2016, [place] Diabetes Association. Diabetes Care. 2016.39(Suppl 1). Potassium [Moles/Vol] 4.3 mmol/L Normal 3.7-5.1 [facility] Sodium [Moles/Vol] 142 mmol/L Normal 136-144 [facility] Urea nitrogen [Mass/Vol] 23 mg/dL Normal 9-24 [facility] CASE MGT INIT Amira 2019 CASE MGT INIT JR HNO ID: [id number] Author: Ashley (Rn) ALFONSO Sands Service: Care Management Author Type: Registered Nurse Type: Care Mgt Initial Assessment Filed: 11/08/2019 3:02 PM Note Text: CARE MANAGEMENT: ASSESSMENT AND DISCHARGE PLAN SERVICE DATE: November 08, 2019 SERVICE TIME: 3:01 PM PRIMARY CARE PHYSICIAN: Ellen Crabtree DO ADMISSION STATUS: Extended Recovery Needs Prior to Discharge: OT/PT Evaluation MEDICAL: Patient/Spot Washer Stated Goals: To have reduction in pain;To have reduction in symptoms;To improve my functional status;To return home to life as it was Health Insurance: None Health Issues Impacting Discharge Plan: Newly diagnosed Newly Diagnosed: Hip Replacement Last Discharge Date: 03/17/18 Is this Within the Past 30 days? Last discharge within 30 days: No Advance Directive: Current Advance Directive: Health Care Power of Boat Builder;Living Will In Chart: No Hand Worker Attempted to Assist with AD Completion: Yes [...] Information Primary Emergency Contact: Dipti Correa Address: [address] [place] [address] OF [facility] Mobile Relation: Spouse Contact Resources: Family [...] Completely I feel financially burdened by my ugx-bi-zozgku expenses for my prescription medication:: 0 - Agree Somewhat Risk Score: 0 Patient is categorized as: Low risk < 2 Are you interested in bedside delivery of your medications? Yes Is Patient Psychosocially Complex?: No ASSESSMENT AND PLAN: Medical Needs: Medical Needs: None Psychosocial Needs: Psychosocial Needs: None FREEDOM OF CHOICE EXPLAINED: [place] of Choice Given: No Reason Not Given: No placements necessary POTENTIAL TRANSITION PLANS Outpatient Therapy Patient has equipment. Patient is scheduled for outpatient therapy on 11/11 at [facility]. SIGNATURE: Ashley Sands RN PATIENT NAME: Alisia Correa DATE: November 08, 2019 TIME: 3:01 PM PAGER/CONTACT #: [phone] Normal [facility] CBCon 11-08-2019 Absolute nRBC <0.01 [facility]0.01 [facility] E[facility]th[facility] distribution width (RBC) [Ratio] 13.9 % Normal 11.5-15.0 [facility] Hematocrit (Bld) [Volume fraction] 44.3 % Normal 39.0-51.0 [facility] Hemoglobin (Bld) [Mass/Vol] 14.2 g/dL Normal 13.0-17.0 [facility] MCH (RBC) [Entitic mass] 30.4 pG Normal 26.0-34.0 [facility] MCHC (RBC) [Mass/Vol] 32.1 g/dL Normal 30.5-36.0 [facility] MCV (RBC) [Entitic vol] 94.9 fL Normal 80.0-100.0 [facility] Platelet mean volume (Bld) [Entitic vol] 11.7 fL Normal 9.0-12.7 [facility] Platelets (Bld) [#/Vol] 159 10*3/uL Normal 150-400 [facility] RBC (Bld) [#/Vol] 4.67 10*6/uL Normal 4.20-6.00 [facility] WBC (Bld) [#/Vol] 10.50 10*3/uL Normal 3.70-11.00 [facility] CONSULTon 11-08-2019 CONSULT HNO ID: [id number] Author: Bhupendra Chacon Service: Podiatry Author Type: [...] POA: Yes 3. COPD with chronic bronchitis ([facility]) POA: Yes 4. Hyperlipidemia POA: Yes 5. PD (Parkinson's disease) ([facility]) POA: Yes 6. Nicotine use disorder, F17.2 [...] Laterality Date - COLONOSCOP W/ OR W/O [facility] SPEC Colonoscopy - EGD W/O OR W/BRUSH/WASH [...] intact Lower extremity tested with 10 gram [place]-Nichole monofilament No evidence of diabetic peripheral sensory [...] to be well informed. Bhupendra Chacon DPM [facility] CONSULT HNO ID: [id number] Author: SHRAVAN Christian Service: Hospital Medicine Author Type: Physician Plate Fitter Type: Consults Filed: 11/08/2019 2:36 PM Note Text: DEPARTMENT OF HOSPITAL MEDICINE INITIAL CONSULT SERVICE DATE: 11/08/2019 SERVICE TIME: 1:14 PM Primary Care Physician: Ellen Crabtree DO NIGHT AND WEEKEND COVERAGE: Days: [phone], please page me for patient issues. Nights: [phone], please page [facility] Hospitalist Night coverage pager [phone] REASON FOR CONSULT: Medical Management REQUESTING PHYSICIAN: [...] with ambulation. States his son is a galley worker but is unaware of his current skin [...] Laterality Date - COLONOSCOP W/ OR W/O [facility] SPEC Colonoscopy - EGD W/O OR W/BRUSH/WASH [...] - Levaquin [Levofloxa* Hives REVIEW OF SYSTEMS: ROAD MIXER OPERATOR: history of Parkinson' s Disease RESP: history [...] - Hypoglycemia protocol COPD with chronic bronchitis ([facility]) POA: Yes Assessment AND Plan: - Chronic, stable - Continue home meds Hyperlipidemia POA: Yes Assessment AND Plan: - Continue home meds PD (Parkinson's disease) ([facility]) POA: Yes Assessment AND Plan: - Chronic, [...] Device and Early Ambulation Disposition: Home with [facility] Plan of care discussed with: Provider, RN, Patient SIGNATURE: SHRAVAN Christian PATIENT NAME: Alisia Correa DATE: November 08, 2019 TIME: 1:15 PM PAGER/CONTACT #: [phone] [facility] NURSING PROGon 11-08-2019 NURSING PROG HNO ID: [id number] Author: Jessica (Rn) ALFONSO Joe Service: Nursing Author Type: Registered Nurse Type: Nursing Progress Note Filed: 11/08/2019 7:25 PM Note Text: Nursing Progress Note Patient Name: Alisia Correa [facility] Daily Note: 1330 Pt admitted to room [...] note was completed by: Jessica Joe RN [facility] OPERATIVE NOon 11-08-2019 OPERATIVE NO HNO ID: [id number] Author: Steven Guevara Jr. Service: Orthopaedic Surgery Author Type: Physician Type: Operative Report Filed: 11/08/2019 2:08 PM Note Text: [facility] OPERATIVE REPORT PATIENT NAME: Alisia Correa AGE: [age] year old LOG ID: [id number] Surgery Date: 11/08/2019 SURGEON: Steven Guevara M.D. ASSISTANT PROFESSOR OF PHYSICS: Vj Jorge PA-C, his assistance consisted of [...] banked allogenic blood if medically necessary. IMPLANTS: [employer] Total Hip System SIZE TYPE Acetabulum [...] Proximal femoral osteotomy was performed. The box office clerk osteotome was utilized to lateralize the starting [...] November 08, 2019 TIME: 11:07 AM Normal [facility] PLAN OF CARE 11-08-2019 PLAN OF CARE HNO ID: [id number] Author: Shelley Givens (Pharmacist) Service: Pharmacy Author [...] Itching - Levaquin [Levofloxa* Hives Preferred Pharmacy: [facility] [place] [id number] [place] [address] [address] [facility] [phone] Current GLASS FURNACE OPERATOR Medications: Prior to Admission medications as of [...] GIVENS, PHARMACIST November 08, 2019 1:53 PM [facility] PROGRESSon 11-08-2019 PROGRESS HNO ID: [id number] Author: Niesha JerryRt) Elpidio Cobb Service: ? Author Type: Weighing Station Operator Type: Progress Notes Filed: 11/08/2019 12:05 PM [...] Dina PUENTES November 08, 2019 12:05 PM [facility] PT EDon 11-08-2019 PT ED HNO ID: [id number] Author: Catherine JerryRn) ALFONSO Basurto Service: Nursing [...] Signed By: Catherine Basurto RN In Department: [facility] SURGERY Normal [facility] SURGICAL PATHOLOGYon 020 SURGICAL PATHOLOGY Specimen originated from [facility] Specimen #: [id number] Submitting Physician: STEVEN GUEVARA JR, MD FINAL [...] Sectioning does not reveal any avascular necrosis. Spot Washer sections are submitted as follows: A1 soft tissue, A2 bone submitted after decalcification. BF/slb 11/08/2019 Gross examination performed at [facility], [address] [place], [place] [address] [address] Date of Report: 11/14/2019 Date of Procedure: 11/08/2019 Date of Receipt: 11/08/2019 Submitted by: STEVEN GUEVARA JR, MD Location: [facility] Diagnostic interpretation performed at [facility], [address] [facility] [address]. CLIA Number: [id number] Normal [facility] Reference Lab Comment on above: Performed By: #### S #### See report for performing lab information. THERAPY NTon 11-08-2019 THERAPY NT HNO ID: [id number] Author: Oumou Witt (Pt) Fabio Service: Physical Therapy Author Type: Physical Therapist Type: Therapy (PT/OT/Speech/Resp) Filed: 11/08/2019 2:54 PM Note Text: Physical Therapy Evaluation SERVICE DATE: 11/08/2019 SERVICE TIME: 1325 to 1415(8 min for pharmacist to review meds) ROOM: [place] [address] Recommended Discharge Disposition: Outpatient Physical Therapy Recommended [...] Diagnosis: Reduced mobility-other Interventions Provided: Evaluation;Therapeutic Exercise (08301);Gait Training (99945);Therapeutic Activity (92968) $ Evaluation-Low (06898) Billed Units: 1 unit Therapeutic Exercise (61587) Treatment Minutes: 12 1 unit Skilled Intervention(s): [...] position: LAQ X10 B LE Therapeutic Activity (74248) Treatment Minutes: 3 Skilled Intervention(s): Instructed patient in supine to sit pushing with upper extremities to sit up Gait Training (94945) Treatment Minutes: 12 1 unit Skilled Intervention(s): [...] DATE: November 08, 2019 TIME: 2:49 PM [facility] XR PELVIS 1V APon 11-08-2019 XR PELVIS [...] IMPRESSION: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 Performed By: #### C MP, IRON, CBCDIF ####[place] [phone]#### FERR, HBA1C ####[place] [address] [place] [phone] MCV 92.2 fL Normal 80.0-100.[address] [facility] Comment on above: Performed By: #### C MP, IRON, CBCDIF ####[place] [phone]#### FERR, HBA1C ####[address] Av[address] [place] [phone] Platelet mean volume (PMV) 12.5 fL Normal 9.0-12.[address] [facility] Comment on above: Performed By: #### C MP, IRON, CBCDIF ####[place] [phone]#### FERR, HBA1C ####[place] [phone] Platelets 146 10*3/uL Low 150-[address] [facility] Comment on above: Performed By: #### C MP, IRON, CBCDIF ####[place] [phone]#### FERR, HBA1C ####[place] [phone] WBC (Leukocytes) 6.04 10*3/uL Normal 3.70-11.00 [facility] Comment on above: Performed By: #### C MP, IRON, CBCDIF ####[place] [phone]#### FERR, HBA1C ####[place] [phone] CONSULT PROGon 07-02-2017 CONSULT PROG HNO ID: [id number] thor: Sonny Laguna (Pa)ervice: Pain ManagementAuthor Type: [...] (How often does the pain occur?) occurs [id number] WM cc R knee painPERTINENT ROS:denies fever, [...] HISTORYProcedure Laterality Date- COLONOSCOP W/ OR W/O [facility] Colonoscopy- EGD W/O OR W/BRUSH/WASH 2016 EGD- [...] PLAN:56 year old WM s/p TKA R fch0Mgjidjv of tramadol 200mg/day and neurontin 600mg ii tab po tidImpressionStatus post right knee replacementAcute right knee painPlanContinue tylenol, cymbalta, topamax,Continue zanaflex prn, and oxyir prncontinue neurontin to 1200mg tid, home medicationcontinue iv toradol 30mg q 6hrsIf lack of pain control, recommend MScontin 15mg tidDiscuss with Dr. GrewalATURE: SHRAVAN Lynn-CDATE: July 02, 2017TIME: 9:32 AM [facility] Glucose POCT (East, [place], [place] A Use Only)on 07-02-2017 Glucose mass conc 97 mg/dL Normal 65-100 [facility] Comment on above: Performed By: #### C MP, IRON, CBCDIF ####[place] [address] [address] [phone]#### FERR, HBA1C ####[facility] [address] [place] [phone] Glucose mass conc 125 mg/dL High 65-100 [facility] Comment on above: Performed By: #### C MP, IRON, CBCDIF ####[place] [address]90 [address] [phone]#### FERR, HBA1C ####[facility] N[phone] NURSING PROGon 07-02-2017 NURSING PROG HNO ID: [id number] thor: Geneva ([facility]) Paul, RNService: (none)Author Type: Advance Clinical NurseType: Nursing Progress NoteFiled: 07/02/2017 1:37 PMNote Text: Nursing Progress NotePatient Name: Alisia Correa Sr. Location: [address]/[place] [address] Daily Note:Patient attended discharge instruction class for [...] note was completed by: Geneva Miller RN [facility] NURSING PROG HNO ID: [id number] thor: Sobeida JerryRn) Debbie Francesice: (none)Author Type: Registered NurseType: Nursing Progress NoteFiled: 07/02/2017 3:02 PMNote Text: Nursing Progress NotePatient Name: Alisia Correa Sr. Location: [address]- Daily Note:1204: Patient is medically cleared to go home per Dr. Hernandez.1501: Patient is cleared from PT and OT to go home.This note was completed by: Sobeida Frances RN [facility] NURSING PROG HNO ID: [id number] thor: Crystal Nelson) Debbie Camachoice: (none)Author Type: [...] Rounds:Patient: Alisia Correa Sr.Care Management: Nate Herron Keno Writer / Runner: Anna Camacho RNOrtho Student Nurse: Anna Miller RNPharmacist: Nicky Sanches Discussed on [...] Concerns;Explain Scheduling and Routine of Care, Test andProcedures;[place] Patient/Family to Hospital/Unit EnvironmentKnowledge Deficit Goals/Outcomes: Participate [...] July 02, 2017 : 8:49 AM CSN: [id number] Nursing Progress NotePatient Name: Alisia Correa Sr. Location: [place] [address] Daily Note: Dr. Rivera placed on consult [...] note was completed by: Crystal Camacho RN [facility] PROGRESSon 07-02-2017 PROGRESS HNO ID: [id number] thor: Ines Sextonervice: General Internal MedicineAuthor Type: [...] hrs: BP Temp Temp src Pulse Resp LfQ02307/02/17 1455 129/79 37.3 ?C (99.1 ?F) Oral [...] 2+ carotidDATA:CBC, Coags, BMP, Mg, PhosRecent Labs 150879LJJ 6.04HB 10.9*HCT 34.4*PLT 146*NA 139K 3.7CHLOR 105CO2 [...] David, MDDATE: July 02, 2017TIME: 6:45 PM [facility] PROGRESS HNO ID: [id number] thor: DANIEL Macielervice: Orthopaedic SurgeryAuthor Type: ResidentType: Progress NotesFiled: 07/02/2017 8:40 AMNote Text:ORTHOPAEDIC POSTOP PROGRESS NOTESUBJECTIVEPatient states that they are comfortableWell Controlled knee(s) pain.Denies incisional pain.OBJECTIVEVITAL SIGNS: BP 112/63 Pulse 80 Temp 37.2 ?C (98.9 ?F) (TemporalArtery) Resp 18 Ht 180.3 cm (5' 11 ) Wt 113.4 kg (250 lb) SpO2 95% BMI 34.87 kg/p4XPKZKM AND OUTPUT:Intake/Output Summary (Last 24 hours) at [...] 02, 2017 : 8:40 AM PAGER/CONTACT #: [phone] discuss medical issues with medical co-management physicianOrthopedic issue please page me first, [phone] 6pm and on weekends please contact [facility] Ortho On-Call [phone] [facility] THERAPY NTon 07-02-2017 THERAPY NT HNO ID: [id number] thor: Nellie (Pt) Jerseyervice: Physical TherapyAuthor Type: Physical TherapistType: Therapy (PT/OT/Speech/Resp)Filed: 07/02/2017 3:04 PMNote Text:PHYSICAL THERAPY MISSED VISITSERVICE DATE: 07/02/2017SERVICE TIME: 1330 to 1335ROOM: [id number] Treatment. Patient not seen due to Declined. Preparing to go toOT for car transfer. Denied questions/concerns from PT standpoint. Clearedafter morning session for D/C home today.SIGNATURE: Nellie David PT PATIENT NAME: Alisia Correa .DATE: July 02, 2017 : 3:01 PM PAGER/CONTACT #: [phone] [facility] THERAPY NT HNO ID: [id number] thor: Rebecca (Ot) Emelina OTService: Occupational TherapyAuthor Type: Occupational TherapistType: Therapy (PT/OT/Speech/Resp)Filed: 07/02/2017 2:43 PMNote Text:Occupational Therapy TreatmentSERVICE DATE: 07/02/2017SERVICE TIME: 1413 to 1437ROOM: [id number] Discharge Disposition: Home OTRecommended Discharge Disposition Comments: [...] Weakness (generalized);Difficultywalki ng-musculoskeletalInterventio ns Provided: Therapeutic Activity (05868)Therapeutic Activity (73660) Treatment Minutes: 242 unitsSkilled Intervention(s): Instruction in [...] G CODE:OT 6 Clicks Score: 23 (07/02/17 3503)Self Care Current Status (G8987): CI (07/02/17 1413)Self [...] Cane;Commode-Raised;Grab Bars-Shower;Hand HeldShower;Long Handled Shoe Horn;Long Handled Sponge;WheeledWalker;Manufacturing Technology Analyst; Sock Aide;Shower ChairPrior Functional Level: Within Functional [...] July 02, 2017 : 2:40 PM PAGER: [phone] [facility] THERAPY NT HNO ID: [id number] thor: Watson (Ot/L) RAMSES Connellyervice: Occupational TherapyAuthoarin Type: Occupational TherapistType: Therapy (PT/OT/Speech/Resp)Filed: 07/02/2017 11:48 AMNote Text:Occupational Therapy EvaluationSERVICE DATE: 07/02/2017SERVICE TIME: 1036 to 1118ROOM: [id number] Discharge Disposition: Home OTRecommended Discharge Disposition Comments: [...] Weakness (generalized);Difficultywalki ng-musculoskeletalInterventio ns Provided: Evaluation;Therapeutic Activity (46538);Self CareHome Management (02979)$ Evaluation-Low (38383) Billed Units: 1 unitTherapeutic Activity (59329) Treatment Minutes: 101 unitSkilled Intervention(s): Instructed patient [...] transfers using wheeled walker between bedand chair.Self Chcf Management (51742) Treatment Minutes: 171 unitSkilled Intervention(s): Instructed in [...] Cane;Commode-Raised;Grab Bars-Shower;Hand HeldShower;Long Handled Shoe Horn;Long Handled Sponge;WheeledWalker;Manufacturing Technology Analyst; Sock Aide;Shower ChairPrior Functional Level: Within Functional [...] July 02, 2017 : 11:33 AM PAGER: [phone] [facility] THERAPY NT HNO ID: [id number] thor: Nellie (Pt) GuddyService: Physical TherapyAuthor Type: Physical TherapistType: Therapy (PT/OT/Speech/Resp)Filed: 07/02/2017 11:05 AMNote Text:Physical Therapy TreatmentSERVICE DATE: 07/02/2017SERVICE TIME: 917 to OOM: [id number] Discharge Disposition: Home PTAnticipated Discharge Needs: Physical [...] INTERVENTIONS:Therapy Diagnosis: Reduced mobility-otherInterventions Provided: Therapeutic Exercise (00503);Therapeutic Activity(52492);Gait Training (59951)Therapeutic Exercise (67892) Treatment Minutes: 201 unitSkilled Intervention(s): Instruction in therapeutic exercise seated andsupine TKR exercisesVerbal and tactile cuing provided .Education in HEp and TKR bookletTherapeutic Activity (55982) Treatment Minutes: 101 unitSkilled Intervention(s): Instructed patient in sit to supine using safe,effective techniqueEducation with POC, precautions, home management and set up, nonpharm paincontrol techniques, nonpharm pain control techniques, conservation ofenergy techniquesGait Training (33752) Treatment Minutes: 242 unitsSkilled Intervention(s): Instruction in [...] Assistance (with use of sheet as leg black pickler after 2trials)Scooting Modified IndependentSit to Stand Stand [...] 02, 2017 : 10:58 AM PAGER/CONTACT #: [phone] [facility] ANES Brian 07-01-2017 ANES POST HNO ID: [id number] thor: Antonio Stockton IIService: AnesthesiologyAuthor Type: AnesthesiologistType: [...] 2017 : 11:34 AM PAGER/CONTACT #: [phone] [facility] ANES PREOPon 07-01-2017 ANES PREOP HNO ID: [id number] thor: Antonio Castle: AnesthesiologyAuthor Type: AnesthesiologistType: Anesthesia [...] results:Hematocrit 40.0 06/17/2017Potassium 4.4 06/17/2017ANES DOS/PREOP NOTE:Vitals: 07/01/312399YG: 115/74Pulse: 67Resp: 16Temp: (!) 35.9 ?C (96.6 [...] HISTORYProcedure Laterality Date- COLONOSCOP W/ OR W/O [facility] SPEC Colonoscopy- EGD W/O OR W/BRUSH/WASH 2015 [...] July 01, 2017 : 7:11 AM CSN: [id number] [facility] BRIEF OP NOTon 07-01-2017 BRIEF OP NOT HNO ID: [id number] thor: Tyron Lebronice: Orthopaedic SurgeryAuthor Type: PhysicianType: Brief Op NoteFiled: 07/01/2017 9:44 AMNote Text:TOTAL KNEE ARTHROPLASTYBRIEF OPERATIVE / PROCEDURE NOTELOG ID: [id number]/Procedure Date: 07/01/2017Incision/Procedure Start Time: 8:12 AMIncision Close/Procedure End Time:Surgeon(s)/Proceduralist (s) and Plate Fitter(s):Surgeon(s) and Role: * Swati Fiore - Primary * Tyron Rose - FellowSurgical Plate Fitter: Kd Pablo) FineganProcedure(s):Procedure (s) (LRB):ARTHROPLASTY REPLACE JOINT TOTAL KNEE (Right)Anesthesia: GeneralPeripheral Block Type: None pre-opApproach: Median parapatellarFindings: see operative reportEstimated Blood Loss: 150 mlsSpecimens: NoneComplications: NoneImplant:Implant Name Type Inv. Item Serial No. Town Administrator Lot No. LRB No. UsedPIN TRIATHLON 3IN FIXATION HEADLESS FLUTED KNEE - [id number] Pin PINTRIATHLON 3IN FIXATION HEADLESS FLUTED KNEE STRY/[employer] [id number] TRIATHLON 7 PA FEMORAL CRUCIATE RETAIN BEAD KNEE RIGHT -[id number] Joint - Knee COMPONENT TRIATHLON 7 PA FEMORAL CRUCIATE RETAINBEAD KNEE RIGHT STRY/[employer] [id number] Right 1INSERT TRIATHLON 6 X3 13MM TIBIAL CONDYLAR STABILIZED KNEE - [id number] - Knee INSERT TRIATHLON 6 X3 13MM TIBIAL CONDYLAR STABILIZED KNEESTRY/[employer] [id number] Right 1BASEPLATE TRIATHLON 6 TRITANIUM [id number] TIBIAL 4 CRUCIFORM PEG KEEL KNEE -[id number] Joint - Knee BASEPLATE TRIATHLON 6 TRITANIUM [id number] TIBIAL 4CRUCIFORM PEG KEEL KNEE STRY/[employer] [id number] Right 1COMPONENT TRITANIUM 35MM METAL 10MM PATELLAR ASYMMETRIC KNEE - [id number] - Knee COMPONENT TRITANIUM 35MM METAL 10MM PATELLAR ASYMMETRIC KNEE STRY/[employer] D4Y3 Right 1Bearing Surface: FixedFixation: CementlessSSI Risk Factors: DMConstraint: Cruciate RetainingOther: NonePre-Op/Pre-Procedure Diagnosis: Primary osteoarthritis of right knee[M17.11]Post-Op/Post-Proc edure Diagnosis: Primary osteoarthritis of right knee[M17.11]Weight Bearing Status: Weight Bearing As ToleratedSIGNATURE: Tyron Rose MD PATIENT NAME: Alisia Correa .DATE: July 01, 2017 : 9:43 AM PAGER/CONTACT #: [phone] [facility] CASE MGT INIT Amira 2016 CASE MGT INIT JR HNO ID: [id number]: Manning (Sw) HouseService: Care ManagementAuthor Type: Social WorkerType: Care Mgt Initial AssessmentFiled: 07/01/2017 1:46 PMNote Text:CARE MANAGEMENT: ASSESSMENT AND DISCHARGE PLANSERVICE DATE: 07/01/2017SERVICE TIME: 12:00pmPRSELECT [facility] CARE PHYSICIAN:Ellen Crabtree, DOPhone: [phone] STATUS: InpatientPOTENTIAL DISCHARGE PLANSHomeHome CareHome OT/PTPatient/Spot Washer Stated Goals: return home.Needs Prior to Discharge: To Be Determined;Discharge Prescriptions;OT/PTEvaluation ;Discharge Transportation;Pharmacy Bedside DeliveryHealth Insurance: Medical [place] ServicesLiving Arrangement: HomeLives With: SpouseFinancial Resources: RetiredPrimary Contact:Extended Emergency Contact InformationPrimary Emergency Contact: Armen Correaddress: [address] [place] [address]Zmna Sljcojhf: SpouseSupportive: Yes- at bedsideOther Important Patient Contacts: [...] Have Advance Directives? Yes: Durable Power of Boat Builder forHealth Care: Dipti Correa , copy is [...] days? NoHas the Patient Been in a Half-Way Facility in the Past 30 days? NoFREEDOM OF CHOICE EXPLAINED:Yes Alisia CorreaFinancial Disclosure ProvidedThe patient and/or family has been given the Provider List: YesProvider List: Home CarePreference: [facility] had [facility] in April.HANDOFF COMMUNICATION:referral sent to [facility]. anticipate d/c home tomorrow.SIGNATURE: LIZETT Sweeney PATIENT NAME: Alisia Correa Sr.DATE: July 01, 2017 : 1:41 PM PAGER/CONTACT #: [facility] CONSULTon 07-01-2017 CONSULT HNO ID: [id number] thor: Ines Currie BhimaniService: General Internal MedicineAuthor Type: PhysicianType: ConsultsFiled: 07/01/2017 9:05 PMNote Text:INTERNAL MEDICINE CONSULT HISTORY AND PHYSICALPLEASE DO NOT REMOVE FROM THE CHART OR MODIFY PRINTED COPYPatient Name: Alisia Correa Sr. CARE PHYSICIAN: Ellen Crabtree, DOCONSULTING PHYSICIAN: Swati Fiore MDDATE of CONSULT: [...] HISTORYProcedure Laterality Date- COLONOSCOP W/ OR W/O [facility] SPEC Colonoscopy- EGD W/O OR W/BRUSH/WASH 2015 [...] 18, height 180.3 cm (5' 11 ), kzxtky126.4 kg (250 lb), SpO2 98 %.General appearance: [...] Hernandez, MDDATE: July 01, 2017TIME: 9:01 PM [facility] CONSULT HNO ID: [id number] thor: Sonny Pablo) NovakService: Pain ManagementAuthor Type: [...] (How often does the pain occur?) occurs tjdhieamgidtvj43vr WM cc R knee painPERTINENT ROS:denies fever, [...] HISTORYProcedure Laterality Date- COLONOSCOP W/ OR W/O [facility] SPEC Colonoscopy- EGD W/O OR W/BRUSH/WASH 2015 [...] SHRAVAN Lynn-CDATE: July 01, 2017TIME: 2:35 PM [facility] Glucose POCT ([place], [place], [place] A Use Only)on 07-01-2017 Glucose mass conc 117 mg/dL High 65-100 [facility] Comment on above: Performed By: #### C MP, IRON, CBCDIF ####[place] [phone]#### FERR, HBA1C ####[address] [place] [address] Glucose mass conc 115 mg/dL High [address] [place] [address] Comment on above: Performed By: #### C MP, IRON, CBCDIF ####[place] [phone]#### FERR, HBA1C ####[place] [address] Glucose mass conc 128 mg/dL [address] Comment on above: Performed By: #### C MP, IRON, CBCDIF ####[place] [address]13216-363-2018#### FERR, HBA1C ####[place] [address] Glucose mass conc 103 mg/dL [address] Comment on above: Performed By: #### C MP, IRON, CBCDIF ####[place] [address]13216-363-2018#### FERR, HBA1C ####[place] [address] NURSING PROGon 07-01-2017 NURSING PROG HNO ID: [id number] thor: Chtao Osborn (Rn) Jeanna, RNService: NursingAuthor Type: Registered NurseType: Nursing Progress NoteFiled: 07/01/2017 12:08 PMNote Text: Nursing Progress NotePatient Name: Alisia Correa Sr. Location: [address]/EA-[id number]-[id number]-[id number] Daily Note:PT admitted from PACU in bed [...] note was completed by: Chato Meeks RN [facility] NURSING PROG HNO ID: [id number] thor: Bambi (Rn) Sunni, RNService: (none)Author Type: Registered NurseType: Nursing Progress NoteFiled: 07/01/2017 9:56 AMNote Text:Discharge Status:Patient is Awakening, and is no airway issues. Skin condition was WNL andwarm.Transported to recovery room via bed with siderails up. Accompanied byanesthetist and PA-C/. [facility] NURSING PROG HNO ID: [id number] thor: Kaylee (Rn) Aimee RNService: (none)Author Type: Registered NurseType: Nursing Progress NoteFiled: 07/01/2017 11:13 AMNote Text: Nursing Progress NotePatient Name: Alisia Correa Sr. Location: [place] [address] _Daily Note:pt to pacu; sleepy. drsg to [...] note was completed by: Kaylee Yu RN [facility] NURSING PROG HNO ID: [id number] thor: Bambi (Rn) JAMIE Moellerervice: (none)Author Type: Registered NurseType: Nursing Progress NoteFiled: 07/01/2017 8:21 AMNote Text:Patient transported to the OR via cart, accompanied by Sabrina Shi.Level of consciousness: Alert and Oriented x 3Emotional Status:CalmSensory Impairments: NoLanguage Barrier: NoMobility Impairments: NoAddressed any patient concerns regarding consents, OR environment, andanesthetics.Body temperature maintained by maintaining OR room temperature gsojsrz89-96 degrees F, providing patient with warm bath blankets, limiting areasof exposure and providing warm irrigation fluid. [facility] NURSING PROG HNO ID: [id number] thor: Neetu JerryRn) Debbie Munsonice: (none)Author Type: Registered NurseType: Nursing Progress NoteFiled: 07/01/2017 7:27 AMNote Text: Nursing Progress NotePatient Name: Alisia Correa . [facility] _Daily Note:AANDO.Lungs clear. Rt leg pink, warm, brisk refill. Strongdorsiflexion, pos sensation. Rt DP and PT pulses palp. Pain all over fromarthritis 04/27. Numbness/tingling to both feet.This note was completed by: Neetu Munson RN [facility] OPERATIVE NOon 07-01-2017 OPERATIVE NO HNO ID: [id number] thor: Swati Navarro Margieervice: Orthopaedic SurgeryAuthor Type: PhysicianType: Operative ReportFiled: 07/01/2017 12:16 PMNote Text:OPERATIVE NOTEPATIENT NAME: Alisia Correa Sr. ID: [id number] Date: 07/01/2017Surgeon(s) and Plate Fitter(s):Surgeon(s) and Role: * Swati Fiore - Primary [...] ccImplants:Implant Name Type Inv. Item Serial No. Town Administrator Lot No. LRB No. UsedPIN TRIATHLON 3IN FIXATION HEADLESS FLUTED KNEE - [id number] Pin PINTRIATHLON 3IN FIXATION HEADLESS FLUTED KNEE STRY/[employer] [id number] TRIATHLON 7 PA FEMORAL CRUCIATE RETAIN BEAD KNEE RIGHT [id number] Joint - Knee COMPONENT TRIATHLON 7 PA FEMORAL CRUCIATE RETAINBEAD KNEE RIGHT STRY/[employer] [id number] Right 1INSERT TRIATHLON 6 X3 13MM TIBIAL CONDYLAR STABILIZED KNEE - [id number] - Knee INSERT TRIATHLON 6 X3 13MM TIBIAL CONDYLAR STABILIZED KNEESTRY/[employer] [id number] Right 1BASEPLATE TRIATHLON 6 TRITANIUM [id number] TIBIAL 4 CRUCIFORM PEG KEEL KNEE [id number] Joint - Knee BASEPLATE TRIATHLON 6 TRITANIUM [id number] TIBIAL 4CRUCIFORM PEG KEEL KNEE STRY/[employer] [id number] Right 1COMPONENT TRITANIUM 35MM METAL 10MM PATELLAR ASYMMETRIC KNEE - [id number] - Knee COMPONENT TRITANIUM 35MM METAL 10MM [...] verified this against the epicondylar axis and [place]'sline.The femur was sized and drill holes were [...] resected leaving a healthy remnant with greater riln47pv thickness. The patella was sized with the [...] Fiore, MDDATE: July 01, 2017TIME: 12:16 PM [facility] PT EDon 07-01-2017 PT ED HNO ID: [id number] thor: Chely (Rn) Jeremy, RNService: (none)Author Type: Registered NurseType: Patient EducationFiled: 07/01/2017 7:12 AMNote Text:PATIENT EDUCATION TOPIC: PROCEDURE / SURGERY: Pre-op Teaching: Post opcarePATIENT NAME: Alisia Correa Sr. LOCATION: [place] [address]READINESS TO LEARNCOGNITIVE ABILITY: Alert and orientedMOTIVATION TO LEARN: InterestedFAMILY SUPPORT: Unable to assess - Family not presentINSTRUCTION PROVIDED TO: PatientPATIENT LEARNS BEST BY: Individual InstructionFACTORS AFFECTING LEARNING: NonePHYSICAL LIMITATIONS AFFECTING LEARNING: NoneLEARNING RESPONSEDIAGNOSIS:PATIENT/FAM GIULIANO RESPONSE: Verbalizes understanding of: LYJ-IBAJLGVZNRSOQIXDBDUVN-Fqz rect action to take to follow pre-operative instructionsMETHOD OF INSTRUCTION: Individual instructionFOLLOW-UP PLAN: Complete - No need for follow-upINSTRUCTIONAL AIDS USED: NASUPPLEMENTAL MATERIAL PROVIDED TO PATIENT: NoneREFERRAL (RECOMMENDATION): NoneElectronically Signed By: Chely Luna RN [facility] PT ED HNO ID: [id number] thor: María (Rn) JAMIE Grubbservice: NursingAuthor Type: Registered NurseType: Patient EducationFiled: 07/01/2017 6:15 AMNote Text:PATIENT EDUCATION TOPIC: PROCEDURE / SURGERY: Pre-op Teaching:Logistics ProtocolsComplication PreventionSurgical Safety PrinciplesPATIENT NAME: Alisia Correa Sr. LOCATION: [place] [address]READINESS TO LEARNCOGNITIVE ABILITY: Alert and orientedMOTIVATION TO LEARN: InterestedFAMILY SUPPORT: High - Very involved in pt careINSTRUCTION PROVIDED TO: Patient and family memberPATIENT LEARNS BEST BY: Verbal InstructionFACTORS AFFECTING LEARNING: NonePHYSICAL LIMITATIONS AFFECTING LEARNING: NoneLEARNING RESPONSEDIAGNOSIS: ADULT:PATIENT/FAMILY RESPONSE: Verbalizes understanding of: [id number] rect action to take to follow pre-operative instructionsMETHOD OF INSTRUCTION: Verbal instructionFOLLOW-UP PLAN: Complete - No need for follow-upINSTRUCTIONAL AIDS USED: NASUPPLEMENTAL MATERIAL PROVIDED TO PATIENT: NoneREFERRAL (RECOMMENDATION): NoneElectronically Signed By: María Grubbs RN [facility] THERAPY NTon 07-01-2017 THERAPY NT HNO ID: [id number] thor: Nellie (Pt) JesúsyService: Physical TherapyAuthor Type: Physical TherapistType: Therapy (PT/OT/Speech/Resp)Filed: 07/01/2017 4:47 PMNote Text:Physical Therapy EvaluationSERVICE DATE: 07/01/2017SERVICE TIME: 1545 to 1630ROOM: [id number] Discharge Disposition: Home PTAnticipated Discharge Needs: Physical [...] INTERVENTIONS:Therapy Diagnosis: Reduced mobility-otherInterventions Provided: Evaluation;Gait Training (73797);TherapeuticActivity (72604)$ Evaluation-Low (89498) Billed Units: 1 unitTherapeutic Activity (35647) Treatment Minutes: 121 unitSkilled Intervention(s): Instructed patient in supine to sit pushing withupper extremities to sit upEducation with POC, precautions, TKR booklet, nonpharm pain controltechniques, toileting, assisted to jose underwear, home management and setupGait Training (96084) Treatment Minutes: 131 unitSkilled Intervention(s): Instruction in [...] 01, 2017 : 4:41 PM PAGER/CONTACT #: [phone] [facility] NURSING PROGon 09-01-2017 NURSING PROG HNO ID: [id number] thor: Renae Cox (Rn) Burak, RNService: (none)Author Type: Registered NurseType: Nursing Progress NoteFiled: 06/19/2017 10:02 AMNote Text:PACC visit 06/17/17. H/O SDM,BMI35,YOLA,COPD/asthma. 06/17/17 nasalcANDs(-),ts,ferritin a1c, cbc/d,bmp,iron studies. 04/15/17 ekg. 05/20/17 kneexr. Chart check complete. Penelope HAMILTON [facility] CBC and Differentialon 06-17 Abs Baso 0.03 k/uL Normal 0.00-0.[address] [facility] Comment on above: Performed By: #### C MP, IRON, CBCDIF ####[place] [phone]#### FERR, HBA1C ####[place] [address] [place] [address] Abs Tunica 0.35 k/uL Normal 0.00-0.[address] [facility] Comment on above: Performed By: #### C MP, IRON, CBCDIF ####[place] [phone]#### FERR, HBA1C ####[place] [address] Abs Neut 2.15 k/uL Normal 1.45-7.[address] [facility] Comment on above: Performed By: #### C MP, IRON, CBCDIF ####[place] [phone]#### FERR, HBA1C ####[place] [address] [place] [address] Basophils/100 WBC Auto (Bld) 0.8 % [facility] Comment on above: Performed By: #### C MP, IRON, CBCDIF ####[place] [phone]#### FERR, HBA1C ####[place] [address] [place] [address] [place] [phone] Eosinophils 0.19 10*3/uL Normal 0.00-0.[address] [facility] Comment on above: Performed By: #### C MP, IRON, CBCDIF ####[place] [id number]#### FERR, HBA1C ####[place] [address] [place] [address] [place] [phone] Eosinophils/100 leukocytes 4.9 % Normal [facility] Comment on above: Performed By: #### C MP, IRON, CBCDIF ####[place] [id number]#### FERR, HBA1C ####[place] [address] [place] [phone] Erythrocyte distribution width Auto Ratio (RBC) 14.3 % Normal 11.5-15.[address] [facility] Comment on above: Performed By: #### C MP, IRON, CBCDIF ####[place] [id number]#### FERR, HBA1C ####[place] [address] [place] [address]CTimothy [place] [phone] Erythrocytes (RBC) 0.0 /100 WBC Normal 0 [facility] Comment on above: Performed By: #### C MP, IRON, CBCDIF ####[place] [id number]#### FERR, HBA1C ####[place] [address] [place] [address] [place] [phone] Erythrocytes (RBC) 4.35 10*6/uL Normal 4.20-6.00 [facility] Comment on above: Performed By: #### C MP, IRON, CBCDIF ####[place] [id number]#### FERR, HBA1C ####[place] [address] Hematocrit (HCT) 40.0 % Normal 39.0-51.[address] [facility] Comment on above: Performed By: #### C MP, IRON, CBCDIF ####[place] [id number]#### FERR, HBA1C ####[place] [phone] Hemoglobin mass conc (Bld) 12.8 g/dL Low 13.0-17.[address] [facility] Comment on above: Performed By: #### C MP, IRON, CBCDIF ####[place] [id number]#### FERR, HBA1C ####[place] [phone] Lymphocytes 1.14 10*3/uL Normal 1.00-4.[address] [facility] Comment on above: Performed By: #### C MP, IRON, CBCDIF ####[address] #### FERR, HBA1C ####[place] [phone] Lymphocytes/100 leukocytes 29.5 % Normal [facility] Comment on above: Performed By: #### C MP, IRON, CBCDIF ####[address] #### FERR, HBA1C ####[place] [phone] MCH 29.4 pG Normal 26.0-34.[address] [facility] Comment on above: Performed By: #### C MP, IRON, CBCDIF ####[place] [id number]#### FERR, HBA1C ####[place] [address] [place] [phone] MCHC mass conc (RBC) 32.0 g/dL Normal 30.5-36.[address] [facility] Comment on above: Performed By: #### C MP, IRON, CBCDIF ####[place] [id number]#### FERR, HBA1C ####[place] [address] [place] [phone] MCV 92.0 fL Normal 80.0-100.[address] [facility] Comment on above: Performed By: #### C MP, IRON, CBCDIF ####[place] [id number]#### FERR, HBA1C ####[place] [phone] Monocytes/100 leukocytes 9.1 % Normal [facility] Comment on above: Performed By: #### C MP, IRON, CBCDIF ####[place] [id number]#### FERR, HBA1C ####[place] [phone] Neutrophils/100 WBC Auto (Bld) 55.7 % Normal [facility] Comment on above: Performed By: #### C MP, IRON, CBCDIF ####[place] [phone]#### FERR, HBA1C ####[address] Av[address] [place] [phone] Platelet mean volume (PMV) 12.3 fL Normal 9.0-12.[address] [facility] Comment on above: Performed By: #### C MP, IRON, CBCDIF ####[place] [phone]#### FERR, HBA1C ####[place] [phone] Platelets 176 10*3/uL Normal 150-[address] [facility] Comment on above: Performed By: #### C MP, IRON, CBCDIF ####[place] [id number]#### FERR, HBA1C ####[place] [phone] WBC (Leukocytes) 3.86 10*3/uL Normal 3.70-11.00 [facility] Comment on above: Performed By: #### C MP, IRON, CBCDIF ####[place] [id number]#### FERR, HBA1C ####[place] [phone] Comp Metabolic Panelon 06-17 Alanine aminotransferase (ALT) 14 U/L Normal 5-[address] [facility] Comment on above: Performed By: #### C MP, IRON, CBCDIF ####[place] [id number]#### FERR, HBA1C ####[place] [phone] Albumin 4.1 g/dL Normal 3.5-5.[address] [facility] Comment on above: Performed By: #### C MP, IRON, CBCDIF ####[place] [id number]#### FERR, HBA1C ####[place] [phone] Alkaline phosphatase (ALP) 95 U/L Normal 40-[address] [facility] Comment on above: Performed By: #### C MP, IRON, CBCDIF ####[place] [id number]#### FERR, HBA1C ####[place] [phone] Anion gap 11 mmol/L Normal 10-[address] [facility] Comment on above: Performed By: #### C MP, IRON, CBCDIF ####[place] [phone]#### FERR, HBA1C ####[place] [address] Aspartate aminotransferase (AST) 18 U/L Normal 7-[address] [facility] Comment on above: Performed By: #### C MP, IRON, CBCDIF ####[place] [id number]#### FERR, HBA1C ####[place] [phone] Bilirubin (total) 0.2 mg/dL Normal 0.0-1.5 [facility] Comment on above: Performed By: #### C MP, IRON, CBCDIF ####[place] [id number]#### FERR, HBA1C ####[place] [address] Calcium 9.2 mg/dL Normal 8.5-10.[address] [facility] Comment on above: Performed By: #### C MP, IRON, CBCDIF ####[place] [phone]#### FERR, HBA1C ####[place] [phone] Chloride 104 mmol/L Normal 98-[address] [facility] Comment on above: Performed By: #### C MP, IRON, CBCDIF ####[place] [id number]#### FERR, HBA1C ####[place] [phone] CO2 25 mmol/L Normal 23-[address] [facility] Comment on above: Performed By: #### C MP, IRON, CBCDIF ####[place] [phone]#### FERR, HBA1C ####[address] AvMelissa [place] [phone] Creatinine 1.07 mg/dL Normal 0.70-1.[address] [facility] Comment on above: Performed By: #### C MP, IRON, CBCDIF ####[place] [phone]#### FERR, HBA1C ####[place] [phone] eGFR (non-black) mL/min/{1.73_m2} Normal >60 [facility] Comment on above: Performed By: #### C MP, IRON, CBCDIF ####[place] [phone]#### FERR, HBA1C ####[place] [phone] Glucose mass conc 83 mg/dL Normal 65-100 [facility] Comment on above: Performed By: #### C MP, IRON, CBCDIF ####[address] #### FERR, HBA1C ####[address] AvMary [place] [phone] Potassium molar conc 4.4 mmol/L Normal 3.5-5.[address] [facility] Comment on above: Performed By: #### C MP, IRON, CBCDIF ####[place] [id number]#### FERR, HBA1C ####[address] AvMelissa [place] [phone] Protein 7.1 g/dL Normal 6.0-8.[address] [facility] Comment on above: Performed By: #### C MP, IRON, CBCDIF ####[place] [id number]#### FERR, HBA1C ####[place] [address] [place] [phone] Sodium 140 mmol/L Normal 135-[address] [facility] Comment on above: Performed By: #### C MP, IRON, CBCDIF ####[place] [phone]#### FERR, HBA1C ####[address] AvMary [place] [phone] Urea nitrogen 18 mg/dL Normal 10- [facility] Comment on above: Performed By: #### C MP, IRON, CBCDIF ####[place] [phone]#### FERR, HBA1C ####[address] AvMary [place] [phone] Ferritinon 06-17-2017 Ferritin 45.3 ng/mL Normal 30.3-565.[address] [facility] Comment on above: Performed By: #### C MP, IRON, CBCDIF ####[place] [id number]#### FERR, HBA1C ####[place] [address] [place] [phone] Hemoglobin A1con 06-17-2017 Glucose mass conc 105 mg/dL Normal [facility] Comment on above: Result Comment: eAG: (Estimated average glucose) is a calculated value from HgbA1c and is sales representative facility services of the average blood glucose level in the last 2-3 month period. Performed By: #### C MP, IRON, CBCDIF ####[place] [phone]#### FERR, HBA1C ####[place] [address] [phone] Hemoglobin A1c/Hemoglobin.tot al mass fraction (Bld) 5.3 % Normal 4.3-5.[address] [facility] Comment on above: Performed By: #### C MP, IRON, CBCDIF ####[address] #### FERR, HBA1C ####[place] [address] [place] [address]CRoger [place] [phone] Iron and TIBCon 06-17-2017 Iron 42 ug/dL Normal 35-[address] [facility] Comment on above: Performed By: #### C MP, IRON, CBCDIF ####[place] [phone]#### FERR, HBA1C ####[phone] TIBC 335 ug/dL Normal 250-[address] [facility] Comment on above: Performed By: #### C MP, IRON, CBCDIF ####[place] [phone]#### FERR, HBA1C ####[place] [phone] Transferrin Saturatn 13 % Low 20-[address] [facility] Comment on above: Performed By: #### C MP, IRON, CBCDIF ####[place] [phone]#### FERR, HBA1C ####[place] [address] [place]Abigail [place] [phone] Staph aureus PCRon 7 MRSA PCR Negative [facility] Comment on above: Performed By: #### S APCR ####[place] [phone] [address] [place] [phone] S aureus Spec Source Nasal [facility] Comment on above: Performed By: #### S APCR ####[address] [phone] [place] [phone] Staph aureus PCR Negative [facility] Comment on above: Performed By: #### S APCR ####[place] [phone] Type and SCR (30D)on 017 ABO/RH(D) Negative [facility] Comment on above: Performed By: #### T SCR30 ####[address] [phone] Antibody Screen Negative [facility] Comment on above: Performed By: #### T SCR30 ####[address] [phone] HOSPon 05-20-2017 HOSP Patient:Eddi Correa [place].MRN: [...] ORAL per tablettamsulosin (FLOMAX) 0.4 mg ORAL [id number] Sulfate 1.25 mg/3 mL INHALATION nebulizer solutionALBUTEROL [...] 40.0 % 06/17/2017 51.0 39.0Progress Notes (PT [facility] [employer]):Nisa Jackman PT 06/24/2017 10:58 AM SignedPatient was seen for TKR measurements today.See flowsheet data for results of measurement.Nisa Jackman PT, DPTProgress Notes (PRE [facility]):Lily Porras CNP 06/17/2017 1:29 PM SignedHISTORY AND PHYSICAL EXAMINATIONSERVICE DATE: 06/17/2017SERVICE TIME: 9:03 AMPRIH[facility]: NANCY Wolf FOR VISIT:Alisia Correa [...] HISTORYProcedure Laterality Date- COLONOSCOP W/ OR W/O [facility] SPEC Colonoscopy- EGD W/O OR W/BRUSH/WASH 2015 [...] three timesdaily.Medication Comments documented by Carla Edwards VEHICLE TRIMMER on 04/15/2017 [id number].Pt reports ALL Medications are accurate 04/15/17CURRENT ALLERGIES:ALLERGIESAllergen Reactions- Avelox [Moxifloxaci* Rash, Hives, Itching, Shortness of Breath- Celebrex [Celecoxib] Rash, Hives, GI Upset- Erythromycin Base Hives, Shortness of Breath- Klonopin [Clonazepa* Itching- Levaquin [Levofloxa* HivesREVIEW OF SYSTEMS:PAIN ASSESSMENT: PainPain Score: 5/10Pain Location: Knee-RightDescription: Dull;AchingDuration Amount of Time: 1Duration Units: YearsFrequency: ContinuousIntervention: ColdGeneral: No weight loss, malaise or fevers.Neuro: No history of TIA's, stroke, ROAD MIXER OPERATOR tumor, impaired sensorium, hemiplegia,paraplegia or quadraplegia. No neurological symptoms or problems., Postive forNo history of TIA's, stroke, ROAD MIXER OPERATOR tumor, impaired sensorium, hemiplegia,paraplegia or quadraplegia. No neurological symptoms or problems.Respiratory: Positive for Asthma, Mild COPD: daily inhalers + prn. Smoker. YOLA(doesn not use cpap)Cardiovascular: No history of HTN requiring medication, no history of angina,CHF, [place], cardiac surgery or stents. Denies rest pain, [...] 17, 2017 : 9:03 AM PAGER/CONTACT #: [phone] Ellis, CNP 06/17/2017 9:48 AM AddendumPATIENT PREOPERATIVE INSTRUCTIONSSwati Fiore MD has scheduled you for your procedure at this surgerycenter:[facility]: [phone] --[address] [place] [address].You will need to call the day prior [...] surgery.- NO jewelry, body piercings, makeup, nail omani, hairpins or contacts are nirmal worn the day of surgery.- CHG wipes provided with instructions.- Glucerna, one can daily the five consecutive days prior to your surgery.If you develop symptoms such as a fever, cold, or flu, or have other changes [facility] within TWO DAYS of scheduled surgery or the morning of surgery,please contact the surgery center above.Personal Belongings:- Leave ALL valuables and money at home or with family members. Arrival Time for Surgery:- You MUST call [facility] the afternoon before surgery after3:30 [...] dates and timesprovided. Ny Chao LPN Normal [facility] Vital Signs Date Time Vital Sign Value Performing Clinician Facility 09-02-2023 13:45-0500 Body height 180.34 cm Ellen Crabtree Other [facility] Other 09-02-2023 13:45-0500 Diastolic blood pressure 62 mm[Hg] Ellen Crabtree Other [facility] Other 09-02-2023 13:45-0500 Respiratory rate 18 /min Ellen Kuns Other [facility] Other 09-02-2023 13:45-0500 SaO2% (BldA) [Mass fraction] 97 % Ellen Kuns Other [facility] Other 09-02-2023 13:45-0500 Systolic blood pressure 92 mm[Hg] Ellen Kuns Other [facility] Other 05-19-2023 15:15-0400 Body height 180.34 cm Ellen Kuns Other [facility] Other 05-19-2023 15:15-0400 Diastolic blood pressure 60 mm[Hg] Ellen Kuns Other [facility] Other 05-19-2023 15:15-0400 Respiratory rate 18 /min Ellen Kuns Other [facility] Other 05-19-2023 15:15-0400 SaO2% (BldA) [Mass fraction] 98 % Ellen Kuns Other [facility] Other 05-19-2023 15:15-0400 Systolic blood pressure 80 mm[Hg] Ellen Kuns Other [facility] [facility] Other 03-20-2023 09:06-0400 Blood Pressure Location Fidel IBARRA [facility] 03-20-2023 09:06-0400 Diastolic blood pressure 78 mm[Hg] Fidel IBARRA [facility] 03-20-2023 09:06-0400 Heart rate 70 /min Fidel IBARRA [facility] 03-20-2023 09:06-0400 Respiratory rate 16 /min Fidel IBARRA [facility] 03-20-2023 09:06-0400 Systolic blood pressure 132 mm[Hg] Fdiel IBARRA [facility] 02-20-2023 09:33-0400 Blood Pressure Location Fidel IBARRA [facility] 02-20-2023 09:33-0400 Diastolic blood pressure 78 mm[Hg] Fidel IBARRA [facility] 02-20-2023 09:33-0400 Heart rate 68 /min Fidel IBARRA [facility] 02-20-2023 09:33-0400 Respiratory rate 16 /min Fiedl IBARRA [facility] 02-20-2023 09:33-0400 Systolic blood pressure 130 mm[Hg] Fidel IBARRA [facility] 01-30-2023 11:54-0400 Blood Pressure Location Fidel IBARRA [facility] 01-30-2023 11:54-0400 Diastolic blood pressure 72 mm[Hg] Fidel IBARRA [facility] 01-30-2023 11:54-0400 Heart rate 68 /min Fidel IBARRA [facility] 01-30-2023 11:54-0400 Respiratory rate 16 /min Fidel IBARRA [facility] 01-30-2023 11:54-0400 Systolic blood pressure 99 mm[Hg] Fidel IBARRA [facility] 11-11-2022 15:00-0500 Body height 180.34 cm Ellen Michis Other [facility] [facility] Other 11-11-2022 15:00-0500 Body mass index (BMI) [Ratio] 28.59 kg/m2 Ellen Kuns Other [facility] Other 11-11-2022 15:00-0500 Body temperature 95.6 [degF] Ellen Kuns Other [facility] Other 11-11-2022 15:00-0500 Body weight 92.99 kg Ellen Kuns Other [facility] Other 11-11-2022 15:00-0500 Diastolic blood pressure 56 mm[Hg] Ellen Kuns Other [facility] Other 11-11-2022 15:00-0500 Respiratory rate 18 /min Ellen Kuns Other [facility] Other 11-11-2022 15:00-0500 SaO2% (BldA) [Mass fraction] 99 % Ellen Kuns Other [facility] Other 11-11-2022 15:00-0500 Systolic blood pressure 80 mm[Hg] Ellen Kuns Other [facility] Other 09-02-2022 14:45-0500 Body height 180.34 cm Ellen Kuns Other [facility] Other 09-02-2022 14:45-0500 Body mass index (BMI) [Ratio] 27.19 kg/m2 Elleneliane Bordens Other [facility] Other 09-02-2022 14:45-0500 Body weight 88.45 kg Elleneliane Bordens Other [facility] Other 09-02-2022 14:45-0500 Diastolic blood pressure 60 mm[Hg] Ellen Michis Other [facility] [facility] Other 09-02-2022 14:45-0500 Respiratory rate 18 /min Elleneliane Bordens Other [facility] Other 09-02-2022 14:45-0500 SaO2% (BldA) [Mass fraction] 92 % Elleneliane Crabtree Other [facility] [facility] Other 09-02-2022 14:45-0500 Systolic blood pressure 92 mm[Hg] Elleneliane Bordens Other [employer] Other 02-18-2022 09:29-0400 Diastolic blood pressure 55 mm[Hg] Frank Oden MD Work Phone: [employer] 02-18-2022 09:29-0400 Systolic blood pressure 105 mm[Hg] Frank Oden MD Work Phone: [employer] 02-18-2022 08:30-0400 Body temperature 97.9 [degF] Frank Oden MD Work Phone: [employer] 02-18-2022 08:30-0400 Heart rate 75 /min Frank Oden MD Work Phone: [employer] 02-18-2022 08:30-0400 Respiratory rate 18 /min Frank Oden MD Work Phone: [employer] 02-18-2022 08:30-0400 SaO2% (BldA) [Mass fraction] 97 % Frank Oden MD Work Phone: [employer] 02-09-2022 05:15-0400 Body mass index (BMI) [Ratio] 34.44 kg/m2 Frank Oden MD Work Phone: [employer] 02-09-2022 05:15-0400 Body weight 108.86 kg Frank Oden MD Work Phone: [employer] 02-07-2022 09:09-0400 Body height 177.8 cm Frank Oden MD Work Phone: [employer] 01-27-2022 10:15-0400 Body height 180.34 cm Elleneliane Crabtree Other [employer] Other 01-27-2022 10:15-0400 Body mass index (BMI) [Ratio] 29.15 kg/m2 Ellen MetaJures Other [employer] Other 01-27-2022 10:15-0400 Body weight 94.8 kg Ellen MetaJures Other [employer] Other 01-27-2022 10:15-0400 Diastolic blood pressure 70 mm[Hg] Ellen MetaJures Other [employer] Other 01-27-2022 10:15-0400 Respiratory rate 18 /min Ellen MetaJures Other [employer] Other 01-27-2022 10:15-0400 SaO2% (BldA) [Mass fraction] 98 % Ellen MetaJures Other [employer] Other 01-27-2022 10:15-0400 Systolic blood pressure 98 mm[Hg] Ellen Kuns Other [employer] Other 12-05-2021 15:00-0500 Body height 180.34 cm Ellen Kuns Other [employer] Other 12-05-2021 15:00-0500 Body mass index (BMI) [Ratio] 29.43 kg/m2 Ellen Kuns Other [employer] Other 12-05-2021 15:00-0500 Body weight 95.71 kg Ellen Kuns Other [employer] Other 12-05-2021 15:00-0500 Diastolic blood pressure 70 mm[Hg] Ellen Kuns Other [employer] Other 12-05-2021 15:00-0500 Respiratory rate 18 /min Ellen Kuns Other [employer] Other 12-05-2021 15:00-0500 SaO2% (BldA) [Mass fraction] 99 % Ellen Kuns Other [employer] Other 12-05-2021 15:00-0500 Systolic blood pressure 106 mm[Hg] Ellen Kuns Other [employer] Other 12-03-2021 16:32-0500 Body height 177.8 cm [facility] 12-03-2021 16:32-0500 Body mass index (BMI) [Ratio] 30.42 kg/m2 [facility] 12-03-2021 16:32-0500 Body surface area Derived from formula 2.18 m2 [employer] 12-03-2021 16:32-0500 Body weight 96.16 kg [facility] 12-03-2021 16:32-0500 Diastolic blood pressure 62 mm[Hg] [facility] 12-03-2021 16:32-0500 Heart rate 80 /min [facility] 12-03-2021 16:32-0500 Systolic blood pressure 102 mm[Hg] [facility] 11-19-2021 14:44-0500 Body height 177.8 cm [facility] 11-19-2021 14:44-0500 Body mass index (BMI) [Ratio] 31.18 kg/m2 [facility] 11-19-2021 14:44-0500 Body surface area Derived from formula 2.21 m2 [facility] 11-19-2021 14:44-0500 Body weight 98.57 kg [facility] 11-19-2021 14:44-0500 Diastolic blood pressure 70 mm[Hg] [facility] 11-19-2021 14:44-0500 Heart rate 64 /min [facility] 11-19-2021 14:44-0500 Systolic blood pressure 110 mm[Hg] [facility] 09-05-2021 12:00-0500 58 1 Ellen R Kuns Work Phone: [facility] [address] [place] Work Phone: Comment on above: [id number] 08-27-2021 11:30-0500 Body height 180.34 cm Ellen Kuns Other [employer] Other 08-27-2021 11:30-0500 Body mass index (BMI) [Ratio] 31.24 kg/m2 Ellen Kuns Other [employer] Other 08-27-2021 11:30-0500 Body weight 101.61 kg Ellen Kuns Other [employer] Other 08-27-2021 11:30-0500 Diastolic blood pressure 68 mm[Hg] Ellen Kuns Other [employer] Other 08-27-2021 11:30-0500 Respiratory rate 18 /min Ellen Kuns Other [employer] Other 08-27-2021 11:30-0500 SaO2% (BldA) [Mass fraction] 98 % Ellen Kuns Other [facility] Other 08-27-2021 11:30-0500 Systolic blood pressure 98 mm[Hg] Ellen Kuns Other [employer] Other 08-16-2021 14:23-0400 Diastolic blood pressure 68 mm[Hg] Ellen R Kuns Work Phone: [facility] [address] DO Work Phone: 08-16-2021 14:23-0400 Systolic blood pressure 90 mm[Hg] Ellen R Kuns Work Phone: [facility] [address] DO Work Phone: 08-16-2021 14:21-0400 Body height 177.8 cm Ellen R Kuns Work Phone: [facility] [address] DO Work Phone: 08-16-2021 14:21-0400 Body mass index (BMI) [Ratio] 32.14 kg/m2 Ellen R Kuns Work Phone: [facility] 250 DO Work Phone: 08-16-2021 14:21-0400 Body surface area Derived from formula 2.19 m2 Ellen R Kuns Work Phone: [facility] 250 DO Work Phone: 08-16-2021 14:21-0400 Body weight 101.61 kg Ellen R Kuns Work Phone: [facility] 250 DO Work Phone: 08-16-2021 14:21-0400 Diastolic blood pressure 68 mm[Hg] Ellen R Kuns Work Phone: [facility] 250 DO Work Phone: 08-16-2021 14:21-0400 Heart rate 72 /min Ellen R Kuns Work Phone: [facility] 250 DO Work Phone: 08-16-2021 14:21-0400 Systolic blood pressure 90 mm[Hg] Ellen R Kuns Work Phone: [facility] 250 DO Work Phone: Encounters Encounter Date Encounter Type Care Provider Facility Start: 10-21-2023 End: 10-22-2023 ambulatory Fidel IBARRA Facility:[facility] Start: 10-21-2023 End: 10-21-2023 Lab Drop off Fidel IBARRA [facility] Start: 10-05-2023 End: 10-05-2023 ambulatory Ellen Kuns Other [employer] Other Start: 10-05-2023 Telephone encounter Ellen Kuns [facility] [place] Start: 09-22-2023 End: 09-22-2023 ambulatory Ellen Kuns Other [employer] Other Start: 09-22-2023 Telephone encounter Ellen Kuns [facility] [place] Start: 09-16-2023 End: 09-16-2023 ambulatory Ellen Kuns Other [employer] Other Start: 09-16-2023 Telephone encounter Ellen Kuns [facility] [place] Start: 09-15-2023 Telephone encounter Ellen Kuns [facility] [place] Start: 09-15-2023 End: 09-16-2023 ambulatory Fidel BIARRA [employer] Other Start: 09-15-2023 End: 09-15-2023 Patient encounter procedure Fidel IBARRA [facility] Start: 09-02-2023 End: 09-02-2023 ambulatory Ellen Kuns Other [employer] Other Start: 09-02-2023 Office outpatient vi sit 25 minutes Ellen Kuns [facility] [place] Start: 08-25-2023 End: 08-25-2023 ambulatory Ellen Kuns Other [employer] Other Start: 08-25-2023 Telephone encounter Ellen Kuns [facility] [place] Start: 08-14-2023 End: 08-15-2023 ambulatory Fidel IBARRA Facility:[facility] Start: 08-14-2023 End: 08-14-2023 Patient encounter procedure iFdel IBARRA [facility] Start: 07-17-2023 End: 07-18-2023 ambulatory Fidel IBARRA Facility:[facility] Start: 07-17-2023 End: 07-18-2023 ambulatory Fidel R IBARRA Facility:[facility] Start: 07-17-2023 End: 07-17-2023 Lab Drop off Fidel IBARRA [facility] Start: 07-17-2023 End: 07-17-2023 Patient encounter procedure Fidel IBARRA [facility] Start: 07-03-2023 End: 07-03-2023 ambulatory Ellen Crabtree Other [employer] Other Start: 07-03-2023 Telephone encounter Ellen Crabtree [facility] Start: 07-02-2023 End: 07-02-2023 ambulatory Fidel IBARRA Facility:[facility] Start: 06-19-2023 End: 06-20-2023 ambulatory Fidel IBARRA Facility:[facility] Start: 06-19-2023 End: 06-20-2023 ambulatory Fidel R IBARRA Facility:[facility] Start: 06-19-2023 End: 06-19-2023 Lab Drop off Fidel IBARRA [facility] Start: 06-19-2023 End: 06-19-2023 Patient encounter procedure Fidel IBARRA [facility] Start: 06-16-2023 End: 06-16-2023 ambulatory Ellen Kuns Other [employer] Other Start: 06-16-2023 Telephone encounter Ellen Kuns [facility] [place] Start: 06-11-2023 End: 06-11-2023 ambulatory Ellen Kuns Other [employer] Other Start: 06-11-2023 Telephone encounter Ellen Kuns [facility] [place] Start: 05-26-2023 End: 05-26-2023 ambulatory Ellen Kuns Other [employer] Other Start: 05-26-2023 Telephone encounter Ellen Kuns [facility] [place] Start: 05-25-2023 End: 05-26-2023 ambulatory Fidel IBARRA Facility:[facility] Start: 05-25-2023 End: 05-25-2023 Lab Drop off Fidel IBARRA [facility] Start: 05-25-2023 End: 05-25-2023 Patient encounter procedure Fidel IBARRA [facility] Start: 05-19-2023 End: 05-19-2023 ambulatory Ellen Kuns Other [employer] Other Start: 05-19-2023 Office outpatient vi sit 25 minutes Ellen Kuns [facility] [place] Start: 04-27-2023 Telephone encounter Ellen Kuns [facility] [place] Start: 04-27-2023 End: 04-28-2023 ambulatory Fidel IBARRA [facility] Other Start: 04-27-2023 End: 04-27-2023 Patient encounter procedure Fidel IBARRA [facility] Start: 04-16-2023 End: 04-16-2023 ambulatory Elleneliane Bordens Other [employer] Other Start: 04-16-2023 Telephone encounter Elleneliane Bordens [facility] Start: 03-23-2023 End: 04-20-2023 Evaluation and management of inpatient Steven Gonzales Facility:[facility] Start: 03-20-2023 End: 03-21-2023 ambulatory Fidel IBARRA Facility:[facility] Start: 03-20-2023 End: 03-21-2023 ambulatory Fidel IBARRA Facility:[facility] Start: 03-20-2023 End: 03-20-2023 Patient encounter procedure Fidel IBARRA [facility] Start: 03-20-2023 End: 03-20-2023 Patient encounter procedure Fidel IBARRA [facility] [employer] Start: 03-19-2023 End: 03-19-2023 ambulatory Ellen Crabtree Other [employer] Other Start: 03-19-2023 Telephone encounter Elleneliane Bordens [facility] Start: 02-20-2023 End: 02-21-2023 ambulatory Fidel IBARRA Facility:[facility] Start: 02-20-2023 End: 02-20-2023 Patient encounter procedure Fidel IBARRA [facility] [employer] Start: 02-17-2023 End: 02-17-2023 ambulatory Elleneliane Bordens Other [employer] Other Start: 02-17-2023 Telephone encounter Elleneliane Crabtree [facility] Start: 02-16-2023 End: 02-16-2023 ambulatory Ellen Crabtree Other [employer] Other Start: 02-16-2023 Telephone encounter Elleneliane Crabtree [facility] Start: 02-11-2023 End: 02-11-2023 ambulatory Ellen Crabtree Other [employer] Other Start: 02-11-2023 Telephone encounter Ellen Crabtree [facility] Start: 01-30-2023 End: 01-31-2023 ambulatory Fidel IBARRA Facility:[facility] Start: 01-30-2023 End: 01-30-2023 Patient encounter procedure Fidel IBARRA [facility] Start: 01-28-2023 ambulatory BILL MACE Facility:[facility] Start: 01-24-2023 Encounter for preprocedural cardiovascular examination [...] Start: 01-16-2023 End: 01-17-2023 ambulatory Fidel IBARRA Facility:[facility] Start: 01-14-2023 End: 01-14-2023 ambulatory Ellen Crabtree Other [employer] Other Start: 01-14-2023 Telephone encounter Ellen Crabtree [facility] Start: 12-24-2022 End: 12-24-2022 Unlisted evaluation and management service Say Reyes APRN.JUVENILE COUNSELOR Work Phone: Urology Comment on above: NO SHOW (Primary Dx) Start: 12-18-2022 End: 12-18-2022 ambulatory MICHELL LEYDA . Facility: Start: 12-08-2022 End: 12-08-2022 ambulatory Ellen Michis Other [employer] Other Start: 12-08-2022 Telephone encounter Ellen Kuns [facility] Start: 12-06-2022 ambulatory Zelda Saenz RN NURSE O N CALL Comment on above: Medication Problem Start: 12-01-2022 End: 12-01-2022 Evaluation and management of inpatient KANG LOYA Facility:[facility] Start: 11-20-2022 End: 12-06-2022 Evaluation and management of inpatient ELLEN BOOGIE LEYDA Facility:[facility] Start: 11-19-2022 End: 11-19-2022 ambulatory Ellen Michis Other [employer] Other Start: 11-19-2022 Telephone encounter Ellen Kuns [facility] Start: 11-17-2022 End: 11-17-2022 ambulatory Ellen Kuns Other [employer] Other Start: 11-17-2022 Telephone encounter [facility]uns [facility] Start: 11-14-2022 End: 11-14-2022 ambulatory Ellen Kuns Other [employer] Other Start: 11-14-2022 Telephone encounter [facility]uns [facility] Start: 11-11-2022 End: 11-11-2022 ambulatory Ellen Kuns Other [employer] Other Start: 11-11-2022 Office outpatient vi sit 25 minutes Ellen Kuns [facility] Start: 11-10-2022 End: 11-10-2022 ambulatory Ellen Kuns Other [employer] Other Start: 11-10-2022 Telephone encounter Ellen Kuns [facility] [place] Start: 11-05-2022 End: 11-09-2022 Evaluation and management of inpatient DR ALTON MANCINI . Facility:[facility] Start: 10-08-2022 End: 10-08-[address] DOCTOR TIPTON Facility:[facility] Start: 09-04-2022 End: 09-04-2022 ambulatory Ellen Kuns Other [employer] Other Start: 09-04-2022 Telephone encounter Ellen Kuns [facility] [place] Start: 09-03-2022 End: 09-03-2022 ambulatory Ellen Kuns Facility:[facility] Start: 09-02-2022 End: 09-02-2022 ambulatory Ellen Kuns Other [employer] Other Start: 09-02-2022 Office outpatient vi sit 25 minutes Ellen Kuns [facility] [place] Start: 08-29-2022 End: 08-29-2022 ambulatory Ellen Kuns Other [employer] Other Start: 08-29-2022 Telephone encounter Ellen Kuns [facility] [place] Start: 08-28-2022 End: 08-28-2022 ambulatory Ellen Kuns Other [employer] Other Start: 08-28-2022 Telephone encounter Ellen Kuns [facility] [place] Start: 06-17-2022 End: 06-17-2022 ambulatory Ellen Kuns Other [employer] Other Start: 06-17-2022 Telephone encounter Ellen Kuns [facility] [place] Start: 05-21-2022 End: 05-21-2022 ambulatory Ellen Kuns Other [employer] Other Start: 05-21-2022 Telephone encounter Ellen Michis [facility] Start: 04-08-2022 End: 04-08-2022 ambulatory Ellen Kuns Other [employer] Other Start: 04-08-2022 Telephone encounter Ellen Michis [facility] Start: 04-03-2022 Telephone encounter Ellen Shell ns Work Phone: [facility] 600 DO Work Phone: Start: 03-25-2022 End: 03-25-2022 ambulatory Ellen Michis Other [employer] Other Start: 03-25-2022 Telephone encounter Ellen Michis [facility] Start: 03-18-2022 End: 03-18-2022 ambulatory Ellen Kuns Other [employer] Other Start: 03-18-2022 Telephone encounter Ellen Michis [facility] Start: 03-10-2022 End: 03-10-2022 ambulatory Ellen Kuns Other [employer] Other Start: 03-10-2022 Telephone encounter Ellen Michis [facility] Start: 02-07-2022 End: 02-18-2022 Evaluation and management of inpatient FRANK ODEN [facility] Start: 02-07-2022 End: 02-18-2022 Evaluation and management of inpatient Frank Oden MD Work Phone: [facility] 7K Comment on above: Lumbar stenosis with neurogenic claudication (Primary Dx) Start: 01-27-2022 End: 01-27-2022 ambulatory Ellen Michis Other [employer] Other Start: 01-27-2022 Encounter for other preprocedural examination Elleneliane Bordens [facility] Start: 01-27-2022 Office outpatient vi sit 25 minutes Elleneliane Bordens [facility] Start: 01-27-2022 Pre-procedure evalua tion check Ellen Crabtree Other [employer] Other Start: 01-23-2022 End: 01-24-2022 ambulatory [facility] Start: 01-23-2022 End: 01-28-2022 ambulatory [facility] Start: 01-20-2022 End: 01-20-2022 ambulatory Ellen Michis Other [employer] Other Start: 01-20-2022 Telephone encounter Ellen Bordens [facility] Start: 01-13-2022 End: 01-13-2022 ambulatory Elleneliane Bordens Other [employer] Other Start: 01-13-2022 Telephone encounter Ellen Crabtree [facility] Start: 12-05-2021 End: 12-05-2021 ambulatory Ellen Michis Other [employer] Other Start: 12-05-2021 Office outpatient vi sit 25 minutes Ellen Michis [facility] Start: 12-03-2021 Split Srvc Lashon Barragan rne Other [facility] Office Start: 11-19-2021 Split Srvc Lashon Silver Osbo rne Other [facility] Office Start: 11-11-2021 Telephone encounter Phani Henderson MD Work Phone: Pain Management Comment on above: Post Op Start: 10-23-2021 End: 10-23-2021 ambulatory Ellen Michis Other [employer] Other Start: 10-23-2021 Telephone encounter Ellen Kuns [facility] [place] Start: 10-07-2021 End: 10-07-2021 ambulatory Ellen Kuns Other [employer] Other Start: 10-07-2021 Telephone encounter Ellen Kuns [facility] [place] Start: 09-30-2021 End: 09-30-2021 ambulatory Ellen Kuns Other [employer] Other Start: 09-30-2021 Telephone encounter Ellen Kuns [facility] [place] Start: 09-27-2021 End: 09-27-2021 ambulatory Yifan Gama Other [employer] Other Start: 09-27-2021 Telephone encounter Yifan Gama [facility] G[facility] Start: 09-08-2021 Chart Update Ellen R Kuns Work Phone: [facility] [address] [place] Work Phone: Start: 09-05-2021 Patient encounter procedure Ellen R Kuns Work Phone: [facility] [address] [place] Work Phone: Start: 09-03-2021 End: 09-03-2021 ambulatory Ellen Kuns Other [employer] Other Start: 09-03-2021 Telephone encounter Ellen Kuns [facility] [place] Start: 08-27-2021 End: 08-27-2021 ambulatory Ellen Kuns Other [employer] Other Start: 08-27-2021 Office outpatient vi sit 25 minutes Ellen Kuns [facility] [place] Start: 08-21-2021 End: 08-21-2021 ambulatory Ellen Kuns Other [facility] Other Start: 08-21-2021 Telephone encounter Ellen Crabtree [facility] Start: 08-16-2021 Office consultation new/estab patient 80 min Ellen R Michidavion Work Phone: [facility] [address] [place] Work Phone: Start: 08-16-2021 Patient encounter procedure Ellen R Michidavion Work Phone: [facility] 250 DO Work Phone: Start: 08-16-2021 Telephone encounter Yifan Silver [facility] Start: 08-06-2021 Office outpatient vi sit 15 minutes Ellen Crabtree [facility] Start: 08-15-2020 End: 08-15-2020 Subsequent hospital visit by physician [facility] Work Phone: Radiology Comment on above: Radiculopathy of lum bar region [M54.16] Start: 06-21-2020 End: 06-21-2020 Subsequent hospital visit by physician Xr [facility] [place] [facility] Comment on above: 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] Start: 06-15-2020 End: 06-15-2020 Subsequent hospital visit by physician [facility] [place] Work Phone: Radiology Comment on above: Pain in thoracic spi ne [M54.6] Start: 12-29-2017 End: 12-31-2017 Evaluation and management of inpatient [facility] Start: 12-07-2017 Ambulatory [facility] Start: 07-01-2017 End: 07-02-2017 Evaluation and management of inpatient [facility] Start: 05-30-2016 End: 06-16-2016 Ambulatory [...] 02-09-2022 End: 02-09-2022 Cortisol total Marielena Ramsey PIGMENT PUMPER - JUVENILE COUNSELOR Work Phone: Start: 02-09-2022 Gluc bld gluc mntr d ev cleared fda spec home use Frank Oden MD Work Phone: Start: 02-09-2022 Cortisol total Marcos Jorgensen MD Work Phone: Start: 02-09-2022 Blood count complete auto&auto difrntl wbc Marielena Ramsey PIGMENT PUMPER - JUVENILE COUNSELOR Work Phone: Start: 02-09-2022 Gluc bld gluc mntr d ev cleared fda spec home use Frank Oden MD Work Phone: Start: 02-08-2022 Gluc bld gluc mntr d ev cleared fda spec home use Frank Oden MD Work Phone: Start: 02-08-2022 Anion gap [Moles/Vol] J coy Ramsey PIGMENT PUMPER - JUVENILE COUNSELOR Work Phone: Start: 02-08-2022 End: 02-08-2022 Basic metabolic panel calcium total Marcos Jorgensen MD Work Phone: Start: 02-08-2022 GLOMERULAR FILTRATIO N RATE, ESTIMATED Marielena Ramsey PIGMENT PUMPER - JUVENILE COUNSELOR Work Phone: Start: 02-08-2022 SCAN OF BLOOD SMEAR Ricardo Mustafa PIGMENT PUMPER - JUVENILE COUNSELOR Work Phone: Start: 02-08-2022 Gluc bld gluc mntr d ev cleared fda spec home use Frank Oden MD Work Phone: Start: 02-08-2022 Gluc bld gluc mntr d ev cleared fda spec home use Frank Oden MD Work Phone: Start: 02-08-2022 Radiologic exam ches t single view Marielena Mustafa PIGMENT PUMPER - JUVENILE COUNSELOR Work Phone: Start: 02-08-2022 Blood count hemoglobin Marielena Mustafa PIGMENT PUMPER - JUVENILE COUNSELOR Work Phone: Start: 02-08-2022 Ecg routine ecg w/le ast 12 lds i&r only Marielena Mustafa PIGMENT PUMPER - JUVENILE COUNSELOR Work Phone: Start: 02-08-2022 Gluc bld gluc [...] Work Phone: Comment on above: Performed at [facility] [address] [place] [address] Start: 02-07-2022 Gluc bld gluc mntr d [...] spine w/ o contrast material Oumou Mcqueen APRN.JUVENILE COUNSELOR Work Phone: Start: 04-24-2020 Antibody screen Start: [...] DTaP/Tdap/Td vaccine (3 - Td or Tdap) [facility] Start: 11-15-2028 Urine microalbumin profile DTAP,TDAP,TD (3 - Td or Tdap) [facility] Start: 08-11-2026 Colonoscopy COLONOSCOPY [facility] Start: 08-11-2026 COLORECTAL CANCER SCREENING COLORECTAL CANCER SCREENING [facility] Start: 01-23-2025 Diabetes screen Diabetes screen [facility] Start: 11-29-2023 Hepatitis B surface antibody level LDL CHOLESTEROL [facility] Start: 11-16-2023 ambulatory Ambulatory Facility:[facility] Start: 2023 PNEUMOCOCCAL (3 - PP SV23 if available, else PCV20) PNEUMOCOCCAL (3 - PPSV23 if available, else PCV20) [facility] Start: 2023 PNEUMOCOCCAL (3 - PP SV23 or PCV20) PNEUMOCOCCAL (3 - PPSV23 or PCV20) [facility] Start: 2023 Pneumococcal 0-64 ye ars Vaccine (3 - PPSV23 or PCV20) Pneumococcal 0-64 years Vaccine (3 - PPSV23 or PCV20) [facility] Start: 06-19-2023 Influenza vaccination INFLUENZA (#1) [facility] Start: 10-19-2022 DEPRESSION ASSESSMENT DEPRESSION ASS ESSMENT [facility] Start: 01-01-2022 COVID-19 VACCINE (5 - Booster for Moderna series) COVID-19 VACCINE (5 - Booster for Moderna series) [facility] Start: 01-01-2022 COVID-19 VACCINE (6 - Moderna series) COVID-19 VACCINE (6 - Moderna series) [facility] Start: 10-25-2021 Adult depression screening assessment DEPRESSION SCREENING [facility] Start: 10-24-2021 FUV, Provider: Ren Watson, Status: Pen, Time: 10:10 AM FUV, Provider: Ren Watson, Status: Pen, Time: 10:[address] Work Phone: Start: 09-05-2021 STRESS NUC, Provider : BRIGITTE POOLE NUCLEAR ,[id number], Status: Pen, Time: 12:00 PM STRESS NUC, Provider: BRIGITTE POOLE NUCLEAR ,[id number], Status: Pen, Time: 12:00 PM -[facility] Fajardo DO Work Phone: Start: 10-25-2020 Hemoglobin A1c/Hemoglobin.total in Blood HBA1C [facility] Start: 08-10-2020 ANNUAL PCP TEAM OFF TRACK BETTING 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 MARYAM DISEASE VISIT ANNUAL PCP TEAM CHRONIC DISEASE VISIT [facility] Start: 03-16-2019 Shingles vaccine (2 of 2) Shingles vaccine (2 of 2) [facility] Start: 03-16-2019 SHINGRIX VACCINE (2 of 2) SHINGRIX VACCINE (2 of 2) [facility] Start: 04-27-2018 3 comp foot exam completed DIABETIC FOOT EXAM [facility] Start: 2013 Influenza vaccination LUNG CANCER [facility] Start: 2013 PROSTATE CANCER SCREENING DISCUSSION PROSTATE CANCER SCREENING DISCUSSION [facility] Start: 2008 Influenza vaccination LUNG CANCER [facility] Start: 2008 Screening for malign ant neoplasm of lung Low dose CT lung screening [facility] Start: 2003 COLOGUARD (FIT-DNA) COLOGUARD (FIT-D NA) [facility] Start: [address] COLONOGRAPHY [facility] Start: 2003 FECAL OCCULT BLOOD FECAL OCCULT BLOO D [facility] Start: 2003 Screening for malign ant neoplasm of colon [facility] Start: 2003 SIGMOIDOSCOPY SIGMOIDOSCOPY [facility] Start: 1988 Zoledronic acid therapy ALPHA- 1 ANTITRYPSIN DEFICIENCY SCREENING [facility] Start: 1976 BP CONTROLLED (<130/80) BP CONTROLLE D (<130/80) [facility] Start: 1976 Hepatitis B surface antibody level LDL CHOLESTEROL [facility] Start: 1976 HEPATITIS C SCREENING HEPATITIS C [facility] Start: 1976 Hepatitis C screening Hepatitis C [facility] Start: 1976 HIV SCREENING HIV SCREENING [facility] Start: 1976 SPIROMETRY SPIROMETRY [facility] Start: 1973 HIV screening HIV screen [facility] Start: 1970 Depression Screen Depression Screen [facility] Start: 1968 Hepatitis B screening URINE AL BUMIN:CREATININE RATIO [facility] Start: 1968 Hepatitis C antibody , confirmatory test DILATED RETINAL EXAM [facility] Start: 1968 Lipid panel Lipids [facility] Start: 1958 Annual Wellness Visi t (AWV) Annual Wellness Visit (AWV) A4 Data Glucose [Mass/volume ] in Serum or Plasma [employer] Phone: Comment on above: 4X Daily (AC & HS) u ntil discontinued starting 02/11/2022, 27 completed As Needed until disc ontinued starting 02/11/2022 Home BIPAP or CPAP Home BIPAP or CPAP Respiratory Care Routine QHS until discontinued starting 02/16/2022 [facility] Phone: Comment on above: QHS until discontinu ed starting 02/16/2022 Oxygen therapy [[facility] Data Set] Initiate Oxygen Therapy Protocol Respiratory Care Routine As Needed until discontinued starting 02/07/2022 [facility] Phone: Comment on above: As Needed until disc ontinued starting 02/07/2022 [facility] Immun[facility] Immunization Date Immunization Notes Care Provider Fa [facility] 10-21-2022 pneumococcal conjuga te vaccine, 13 valent Fidel IBARRA [facility] 09-18-2022 influenza virus vaccine, unspecified formulation Fidel IBARRA [facility] 09-02-2022 influenza, injectabl e, quadrivalent, contains preservative Ellen Crabtree Other [employer] Other 09-02-2022 influenza virus vaccine, unspecified formulation Fidel IBARRA [facility] 11-06-2021 COVID-19, Moderna, 100mcg/0.5ml Lashon Hamm [facility] 10-15-2021 influenza virus vaccine, unspecified formulation Fidel IBARRA [facility] 10-15-2021 Influenza, injectabl e, Madin Marbury Canine Kidney, preservative free, quadrivalent Ellen R Kuns Work Phone: [facility] 600 DO Work Phone: 10-15-2021 Moderna COVID-19 Vaccine 100 MCG/0.5ML Intramuscular Suspension Ellen R Kuns Work Phone: [facility] 01-30-2021 COVID-19, Moderna, 100mcg/0.5ml [facility] [employer] 01-09-2021 COVID-19 Vaccine Moderna - Documentation Purposes Only Ellen Kuns Other [facility] 01-02-2021 COVID-19, Moderna, 100mcg/0.5ml [employer] 12-13-2020 COVID-19 Vaccine Moderna - Documentation Purposes Only Ellen Kuns Other [facility] 07-17-2020 influenza virus vaccine, unspecified formulation Fidel IBARRA [facility] 07-17-2020 influenza, injectabl e, quadrivalent, contains preservative Ellen Kuns Other [facility] 04-12-2020 Toradol per 15 mg Ellen Kuns Other [employer] Other 08-24-2019 influenza virus vaccine, unspecified formulation Fidel IBARRA [facility] 08-24-2019 influenza, high dose seasonal, preservative-free Ellen Kuns Other [facility] 01-19-2019 zoster vaccine recombinant Ellen Kuns Other [facility] 11-15-2018 pneumococcal conjuga te vaccine, 13 valent Phani Henderson MD Work Phone: [facility] 11-15-2018 tetanus toxoid, redu whitney diphtheria toxoid, and acellular pertussis vaccine, adsorbed Phani Henderson MD Work Phone: [facility] 07-07-2018 influenza virus vaccine, unspecified formulation Fidel IBARRA [facility] 07-07-2018 influenza, injectabl e, quadrivalent, contains preservative Ellen Kuns Other [facility] 05-06-2018 Toradol per 15 mg Ellen Kuns Other [employer] Other 10-03-2017 Toradol per 15 mg Ellen Kuns Other [employer] Other 09-17-2017 Toradol per 15 mg Ellen Kuns Other [employer] Other 07-01-2017 influenza virus vaccine, unspecified formulation Fidel IBARRA [facility] 07-01-2017 influenza, injectabl e, quadrivalent, preservative free Ellen R Kuns Work Phone: [facility] 03-24-2017 Toradol per 15 mg Ellen Kuns Other [employer] Other 01-29-2017 Toradol per 15 mg Ellen Kuns Other [employer] Other 12-25-2016 Toradol per 15 mg Ellen Kuns Other [employer] Other 08-12-2016 influenza virus vaccine, unspecified formulation Fidel IBARRA [facility] 08-12-2016 influenza, high dose seasonal, preservative-free Ellen R Kuns Work Phone: [facility] 08-12-2016 Toradol per 15 mg Ellen Kuns Other [employer] Other 08-12-2016 influenza, injectabl e, quadrivalent, contains preservative Ellen Kuns Other [employer] Other 01-17-2016 Toradol per 15 mg Ellen Kuns Other [employer] Other 10-22-2015 tetanus toxoid, redu whitney diphtheria toxoid, and acellular pertussis vaccine, adsorbed Ellen Kuns Other [facility] 10-22-2015 Toradol per 15 mg Ellen Kuns Other [employer] Other 07-23-2015 influenza virus vaccine, unspecified formulation Fidel IBARRA [facility] 07-23-2015 influenza, injectabl e, quadrivalent, preservative free Ellen R Kuns Work Phone: [facility] 07-23-2015 influenza, injectabl e, quadrivalent, contains preservative Ellen Kuns Other [employer] Other 10-26-2014 Toradol per 15 mg Ellen Kuns Other [employer] Other 10-26-2014 influenza, injectabl e, quadrivalent, contains preservative Ellen Kuns Other [employer] Other 07-11-2014 Toradol per 15 mg Ellen Kuns Other [employer] Other 06-27-2014 Toradol per 15 mg Ellen Kuns Other [employer] Other 04-20-2014 Toradol per 15 mg Ellen Kuns Other [employer] Other 01-18-2013 Toradol per 15 mg Ellen Kuns Other [employer] Other 09-15-2012 influenza virus vaccine, split virus (incl. purified surface antigen) Ellen Kuns Other [employer] Other 07-15-2010 influenza virus vaccine, unspecified formulation Phani Henderson MD Work Phone: [facility] 08-24-2009 novel [id number], preservative-free, injectable Ellen R Kuns Work Phone: [facility] 08-16-2002 hepatitis B vaccine, adult dosage Ellen R Kuns Work Phone: [facility] 01-27-2002 hepatitis B vaccine, adult dosage Ellen R Kuns Work Phone: [facility] 08-13-1995 pneumococcal polysaccharide vaccine, 23 valent Ellen Kundavion Other [facility] Payers Date Payer Category Payer Unknown [id number] 2022 Self-pay 2021 Medicare AETNA MEDICARE A ETNA MEDICARE O [id number] 2021-Present [phone] [address] [place] [address] [id number] [id number] 2019 Medicare [id number] [id number] 2004 Unknown 1959 Medicare [id number] 2.16.840.1.730839.3.441 1959 Medicare [id number] 1959 Unknown [id number] 1958 Unknown [id number] 2.16.840.1.136623.3.579.2.93 1958 Unknown [id number] 2.16.840.1.844700.3.579.2.93 1958 Unknown [id number] 2.16.840.1.997318.3.579.2.93 1958 Unknown [id number] 2.16.840.1.247683.3.579.2.593 1958 Unknown [id number] 2.16.840.1.759394.3.579.2.593 1958 Unknown [id number] 2.16.840.1.794091.3.579.2.593 1958 Unknown [id number] 2.16.840.1.581013.3.579.2.593 1958 Unknown [id number] 2.16.840.1.291286.3.579.2.593 1958 Unknown [id number] 2.16.840.1.210388.3.579.2.727 1958 Unknown [id number] 2.16.840.1.750433.3.579.2.727 1958 Unknown [id number] 2.16.840.1.166222.3.579.2.727 1958 Unknown [id number] 2.16.840.1.197545.3.579.2.727 1958 Unknown [id number] 2.16.840.1.698903.3.579.2.727 1958 Unknown [id number] 2.16.840.1.169445.3.579.2.72 1958 Unknown [id number] 2.16.840.1.016345.3.579.2.72 1958 Unknown [id number] 2.16.840.1.347871.3.579.2.72 1958 Unknown [id number] 2.16.840.1.828549.3.579.2.72 1958 Unknown [id number] 2.16.840.1.060455.3.579.2.72 1958 Unknown [id number] 2.16.840.1.035644.3.579.2.72 1958 Unknown [id number] 2.16.840.1.325086.3.579.2. 1958 Unknown [id number] 2.16.840.1.361500.3.579.2.72 1958 Unknown [id number] 2.16.840.1.658617.3.579.2.72 1958 Unknown [id number] 2.16.840.1.456957.3.579.2.72 1958 Unknown [id number] 2.16.840.1.581900.3.579.2.72 1958 Unknown [id number] 2.16.840.1.093831.3.579.2.72 1958 Unknown [id number] 2.16.840.1.190766.3.579.2.72 1958 Unknown [id number] 2.16.840.1.885689.3.579.2.72 Unknown [id number] 2.16.840.1.623433.3.579.2.531 Unknown [id number] 2.16.840.1.871834.3.579.2.531 Social History Date Type Detail Facility Start: 04-15-2017 End: 05-04-2020 No alcohol use No alcohol use [facility] Comment on above: Coffee 3 cups daily; 6 ciggs daily; Start: Smoker Randi AWAK Start: 12-07-1982 End: 04-24-2020 Tobacco smoking status NHIS Smokes tobacco daily [facility] Start: 12-07-1982 History of tobacco use Cigarette Smo ker [facility] Start: 04-15-2017 End: 04-24-2020 Tobacco use and exposure Smokeless tobacco non-user [facility] Start: 05-29-2020 End: 10-10-2021 Alcohol intake Current non-drinker of alcohol (finding) [facility] Start: 05-04-2020 End: 11-25-2022 History SDOH Financial 4 [facility] Start: 05-04-2020 End: 11-25-2022 History SDOH Food Worry 1 [facility] Start: 05-04-2020 End: 11-25-2022 History SDOH Transport Med 2 [facility] Start: 06-21-2020 Tobacco Comment currently 8 ci garettes a day [facility] Start: 1960 Sex Assigned At Not on file C [facility] Start: 05-22-2020 End: 02-07-2022 Exposure to SARS-CoV-2 (event) Not sure [facility] Start: 02-09-2022 Alcohol intake Lifetime non-d margarita (finding) [employer] Work Phone: Start: 05-12-2019 End: 05-04-2020 Sex Assigned At [facility] Start: 01-16-2023 End: 02-20-2023 Tobacco smoking status Ex-smoker (finding) [facility] Tobacco smoking status Never [facility] How hard is it for y ou to pay for the very basics like food, housing, medical care, and heating Not very hard [facility] (I/We) worried heriberto er (my/our) food would run out before (I/we) got money to buy more. Never true [facility] Start: 04-24-2020 Tobacco Comment currently 1/2 pack day since 01/2020 [facility] Start: 05-05-2020 End: 06-04-2020 Exposure to SARS-CoV-2 (event) Unable to assess [facility] Medical Equipment Procedure Code Equipment Code Equipment Origin al Text Equipment Identifier Dates Restrictor 24mm Medium [place] Cement Revision Plug Hip - [id number] Start: 04-27-2017 Cement Simplex P Tobramycin Bone Full Dose Radiopaque Preblend Sterile - [id number] Start: 04-27-2017 Restrictor 30mm Large [place] Cement Revision Plug Hip - [id number] Start: 04-27-2017 Cement Simplex P Speedset Bone Radiopaque Sterile - [id number] Start: 12-29-2017 Wai-Vo-K-Kind Implant - [id number] Start: 06-05-2016 Comment on above: Description: CONCHARO C ORP. N300 LEAD ANCHOR KIT Head Global Unit e 52mm Standard 18mm Humeral - [id number] Start: 12-29-2017 Nevro Surgical L ead Kit [id number] Start: 03-16-2018 Head V40 28mm -2 .7mm Offset Taper Biolox Delta Femoral Hip - [id number] Start: 11-08-2019 Liner 46mm F Dylon r Acetabular Modular Dual Mobility Primary Hip - [id number] Start: 11-08-2019 Insert Adm Mobil e Bearing Hip Jainism 52mm 28mm 0d X3 8.9mm Acetabular - [id number] Start: 11-08-2019 Insert Adm Mobil e Bearing Hip Jainism 52mm 28mm 0d X3 8.9mm Acetabular - [id number] Start: 05-03-2020 Head V40 28mm +4 mm Offset Taper Biolox Delta Femoral Hip - [id number] Start: 05-03-2020 Liner 46mm F Dylon r Acetabular Modular Dual Mobility Primary Hip - [id number] Start: 05-03-2020 Stem Triathlon 1 2mm Cocr 100mm Femoral Cemented Total Stabilized Knee - [id number] Start: 04-27-2017 Stem Triathlon 1 5mm Cocr 50mm Femoral Cemented Total Stabilize Knee - [id number]_imp Start: 04-27-2017 Component Triath lisy 7 Cocr Femoral Total Stabilize Knee Left - [id number] Start: 04-27-2017 Augment Triathlo n 7 5mm Femoral Total Stabilize Knee Posterior - [id number] Start: 04-27-2017 Augment Triathlo n 7 5mm Femoral Total Stabilize Knee Left - [id number] Start: 04-27-2017 Augment Triathlo n 7 5mm Femoral Total Stabilize Knee Left - [id number] Start: 04-27-2017 Augment Triathlo n 6 10mm Tibial Total Stabilize Right Medial Left Lateral - [id number] Start: 04-27-2017 Baseplate Triath lisy 6 [place] Cocr Tibial Total Stabilize Cemented Knee - [id number]_imp Start: 04-27-2017 Augment Triathlo n 6 10mm Tibial Total Stabilize Left Medial Right Lateral - [id number]_[id number] Start: 04-27-2017 Insert Triathlon 6 X3 16mm Tibial Total Stabilize Plus Knee - [id number] Start: 04-27-2017 Component Triath lisy 7 Pa Femoral Cruciate Retain Bead Knee Right - [id number]_imp Start: 07-01-2017 Insert Triathlon 6 X3 13mm Tibial Condylar Stabilized Knee - [id number] Start: 07-01-2017 Baseplate Triath lisy 6 Tritanium [id number] Tibial 4 Cruciform Peg Keel Knee - [id number]_imp Start: 07-01-2017 Component Tritan ium 35mm Metal 10mm Patellar Asymmetric Knee - [id number]_imp Start: 07-01-2017 Component Triath lisy 35mm 10mm Patellar Asymmetric Knee - [id number] [id number]_imp Start: 04-27-2017 Head 48mm 7mm Humeral Grabill Peg Left Glenoid - [id number] Start: 12-29-2017 Stem Global Ap 1 2mm Porocoat 137mm Humeral Arthroplasty System Shoulder - [id number]_imp Start: 12-29-2017 Assembly Global Ap 135d Taper Fix Shoulder Arthroplasty System - [id number]_imp Start: 12-29-2017 Augment Triath T ib Cone Sz A - [id number]_imp Start: 04-27-2017 Stem Accolade Ii 7 127d Femoral - [id number]_imp Start: 11-08-2019 Shell Trident Ii 56mm F Tritanium Acetabular 5 Screw Hole Cluster Sterile - [id number]_imp Start: 11-08-2019 Stem Accolade Ii 7 127d Femoral - [id number] Start: 05-03-2020 Shell Trident Ii 56mm F Tritanium Acetabular 5 Screw Hole Cluster Sterile - [id number]_imp Start: 05-03-2020 Lead 50cm Nevro - [id number]_imp Start: 05-08-2016 Comment on above: Description: 50 Lead 50cm Nevro - [id number]_imp Start: 06-05-2016 Comment on above: Description: NEVRO B LUE PERC LEAD KIT Lead 50cm Nevro - [id number]_imp Start: 06-05-2016 Comment on above: Description: NEVRO B LUE PERC LEAD KIT Gnrtr Nrstm Ipg Kit Nevro - [id number]_imp Start: 06-05-2016 Comment on above: Description: NEVRO N IPG KIT Screw Spinal Streamline 7.5x55mm - [id number]_imp Start: 02-07-2022 Set Scr Spnl Ti Streamline - [id number] Start: 02-07-2022 Screw Spnl L45mm Dia7.5mm Thorlum Ti Ally Polyax Streamline - [id number]_imp Start: 02-07-2022 Screw Spnl L50mm Dia7.5mm Thorlum Ti Ally Polyax Streamline - [id number]_imp Start: 02-07-2022 Ta Spnl L120mm Hyl89ih Thorlum Prebent Streamline - [id number]_imp Start: 02-07-2022 Ta Spnl L100mm Iti94oh Thorlum Prebent Streamline - [id number]_imp Start: 02-07-2022 Functional Status Date Assessment Result Facility 03-20-2023 Functional Status N/A [facility] 02-20-2023 Functional Status N/A [facility] 01-30-2023 Functional Status N/A [facility] Clinical Notes 06-07-2012 to 10-05-2023 Note Date & Type Note Facility 10-05-2023 Evaluation note Encounter Date Diagnosis Assessment Notes Sep, Arthritis (ICD-10 - M19.90) [employer] Other 11-29-2023 Evaluation note* Encounter Date Diagnosis Assessment Notes Treatment Notes Treatment Clinical Notes Aug, Anxiety (ICD-10 - F41.9) Aug, Neuropathy (ICD-10 - G62.9) [employer] Other 11-28-2023 Evaluation note* Encounter Date Diagnosis Assessment Notes Treatment Notes Treatment Clinical Notes Aug, Diabetic nephropathy (ICD-10 - E11.21) [employer] Other 11-15-2023 Evaluation note* Encounter Date Diagnosis [...] medrol should help with this as well. [employer] Other 11-07-2023 Evaluation note* Encounter Date Diagnosis Assessment Notes Treatment Notes Treatment Clinical Notes Aug, UTI (urinary tract infection) (ICD-10 - N39.0) Aug, Diarrhea (ICD-10 - R19.7) [employer] Other 09-15-2023 Evaluation note* Encounter Date Diagnosis Assessment Notes Treatment Notes Treatment Clinical Notes Jun, Arthritis (ICD-10 - M19.90) [employer] Other 08-08-2023 Evaluation note* Encounter Date Diagnosis Assessment Notes Treatment Notes Treatment Clinical Notes May, Parkinson disease (ICD-10 - G20) May, Constipation (ICD-10 - K59.00) [employer] Other 08-01-2023 Evaluation note* Encounter Date Diagnosis [...] narcotic induced constipation and he verbalized understanding. [employer] Other 07-10-2023 Evaluation note* Encounter Date Diagnosis Assessment Notes Treatment Notes Treatment Clinical Notes Apr, Hypotestosteronism (ICD-10 - E34.9) [employer] Other 06-02-2023 Hospital Discharge instructions Patient Education [...] and water are not available, use hand equipment analyst. 3.Draw up sterile water into a syringe [...] and water are not available, use hand equipment analyst. 2.Disconnect the bag from the catheter and [...] of the following methods: According to the java developer analyst's instructions. As told by your health care provider. 7.Let the bag dry completely. Put it in a clean plastic bag before storing it. General tips Always wash your hands before and after caring for your catheter and collection bag. Use a mild, fragrance-free soap. If soap and water are not available, use hand equipment analyst. Clean the outside of the catheter with [...] Document Reviewed: 11/09/2019 Elsevier Patient Education 2022 [employer] Follow Up Care 02/20/2023 10:24:17 With:WALTER YBARRA, Fidel Hinkle, URL Address: [facility] [address], [place] [address]- When: Unknown [facility] Lori 05-05-2023 Hospital Discharge instructions Patient Education [...] Follow these instructions at home: Medicines Take hmde-axy-dgssyxi and prescription medicines only as told by [...] provider. Document Revised: 06/26/2021 Document Reviewed: 06/26/2021 [employer] Patient Education 2022 [employer]. Follow Up Care 01/16/2023 11:27:11 With:WALTER YBARRA, Fidel Hinkle, URL Address: [address] [place] [address]- When: Unknown [facility] Lori 04-14-2023 Hospital Discharge instructions Patient Education [...] urethra. Follow these instructions at home: Take ahlr-obr-lnninum and prescription medicines only as told by [...] 10/05/2006 Document Revised: 08/30/2019 Document Reviewed: 11/09/2017 [employer] Patient Education 2020 [employer] 01/30/2023 07:57:19 Indwelling Urinary Catheter Care, Adult, Nptv-fg-Oaqv Indwelling Urinary Catheter Care, Adult An indwelling [...] not have soap and water, use hand equipment analyst. Always make sure there are no twists [...] 01/30/2014 Document Revised: 01/27/2020 Document Reviewed: 05/21/2018 [employer] Patient Education 2020 [employer] 01/30/2023 07:56:45 Benign Prostatic Hyperplasia Benign Prostatic [...] urethra. Follow these instructions at home: Take djbl-ruv-nvjymeh and prescription medicines only as told by [...] 10/05/2006 Document Revised: 08/30/2019 Document Reviewed: 11/09/2017 [employer] Patient Education 2020 [employer]. Follow Up Care 01/27/2023 14:28:53 With:WALTER YBARRAFidel, URL Address: [facility] [address] [place] [address]- [phone] When:Within 3 Week(s) Comments:3 weeks for SP tube [facility] NoteOP Note OPERATION DATE: 01/22/2023 [...] the flexible scope and then passed a 26-Northern Irish resectoscope sheath into the bladder, and then I used the Affibody evacuator and was able to extract all [...] of the incision. I then grasped a 24-Northern Irish two way Carrington catheter in the jaws [...] SP tube in the office.[id number] NoteEXAMINATION: XR CHEST 2 V, 01/20/2023 11:23 [...] Electronically authenticated by: SHARRON BENITEZ Date: 2023-01-20 12:49[facility]03-29-[facility] Evaluation note* Encounter Date Diagnosis Assessment Notes Treatment Notes Treatment Clinical Notes Dec, Neuropathy (ICD-10 - G62.9) [employer] Other [id number] NoteHNO ID: [id number] Author: Say Reyes APRN.JUVENILE COUNSELOR Service: ? Author Type: Nurse Practitioner Type: Progress Notes Filed: 12/24/2022 5:59 PM Note Text: The patient did not show up for this appointment.[id number] History of Present illness Narrative* Say Reyes APRN.JUVENILE COUNSELOR - 12/24/2022 11:30 AM EST The patient did not show up for this appointment. documented in this encounterUniversity Hospitals [facility] System02-18-2023 [facility]2023 Miscellaneous Notes * Telephone Encounter - Zelda Saenz RN - 12/06/2022 1:15 PM EST Drug [place] pharmacist, Macrina, requests to clarify pt.'s proamatine [...] from CC later today. documented in this encounterUniversity Hospitals Health System02-17-2023 NoteGrand [facility]02-[facility]-2023 Note[facility]02-[facility]-2023 Note[facility]02-15-2023 Note[facility]02-[facility]-2023 Note [facility]02-15-2023 [facility]02-14-2023 Note[facility]02-13-2023 [facility] 12-01-2022 Note[facility]02-[facility]-2023 Note[facility]02-12-2023 Note[facility]02-11-2023 Note[facility]02-11-2023 Note[facility]02-10-2023 Note [facility]02-09-2023 NoteGrand [facility]02-08-2023 NoteHNO ID: [id number] Author: Antonia Villa RN Service: ? Author Type: Registered Nurse Type: Nursing Progress Note Filed: 11/26/2022 10:03 AM Note Text: Transfer Note: Patient transferred in stable condition. Actions taken: Report given/called to G61 RN.[facility]02-08-2023 NoteGrand [facility]02-08-2023 NoteGrand [facility]02-07-2023 Note[facility]02-06-2023 Note[facility]02-05-2023 Note [facility]02-04-2023 Note[facility]02-03-2023 Note[facility]02-03-2023 [facility] 11-20-2022 NoteGrand [facility]02-02-2023 [facility]01-30-2023 Evaluation note* Encounter Date Diagnosis Assessment Notes Treatment Notes Treatment Clinical Notes Oct, Orthostatic hypotension (ICD-10 - I95.1) [employer] Other 01-24-2023 Evaluation note* Encounter Date Diagnosis [...] He is symptomatic with dizziness and fatigue. [facility] was contacted and will attempt to schedule [...] sympoms. We did attempt to call his svp operations however nursing staff will need to discuss with Dr. Teran and they have advised that they will call both us and the patient back with an appt and recommendations due to his significant hypotention. [employer] Other 11-15-2022 Evaluation note* Encounter Date Diagnosis [...] Aug, Needs flu shot (ICD-10 - Z23) [employer] Other 11-11-2022 Evaluation note* Encounter Date Diagnosis Assessment Notes Treatment Notes Treatment Clinical Notes Aug, Benign prostatic hyperplasia with lower urinary tract symptoms, symptom details unspecified (ICD-10 - N40.1) [employer] Other 11-10-2022 Evaluation note* Encounter Date Diagnosis Assessment Notes Treatment Notes Treatment Clinical Notes Aug, Benign prostatic hyperplasia with lower urinary tract symptoms, symptom details unspecified (ICD-10 - N40.1) [employer] Other 08-30-2022 Evaluation note* Encounter Date Diagnosis Assessment Notes Treatment Notes Treatment Clinical Notes May, Neuropathy (ICD-10 - G62.9) [employer] Other 08-03-2022 Evaluation note* Encounter Date Diagnosis [...] - N40.1) May, Parkinsonism (ICD-10 - G20) [employer] Other 06-07-2022 Evaluation note* Encounter Date Diagnosis Assessment Notes Treatment Notes Treatment Clinical Notes Mar, Hypotension (ICD-10 - I95.9) [employer] Other 05-03-2022 History of Present illness Narrative* Nevaeh Oviedo RN - 02/18/2022 12:15 PM EDT Discharged with [facility] per cart to long-term with AVS and scripts. * Nevaeh Oviedo RN - 02/18/2022 11:00 AM EDT Report called to [facility]. All Questions answered. Phone number given [...] HOLLY Morejon - 02/17/2022 10:02 AM EDT [facility] Occupational Therapy Daily Note Time: Time In: 923 Time Out: 1001 Timed Code Treatment Minutes: 38 Minutes Minutes: 38 Date: 02/17/2022 Patient Name: Alisia Correa, Gender: male Room: [facility]12/012-A : 1960 (61 y.o.) Referring Practitioner: Maki [...] Output Net 480 ml URINARY CATHETER OUTPUT ([place]): [REMOVED] Urinary Catheter-Output (mL): 250 mL External [...] Wall PT - 02/16/2022 10:39 AM EDT [facility] INPATIENT PHYSICAL THERAPY DAILY NOTE [facility] 7K - 7K-12/012-A Time In: 1038 [...] Ambulation Assistance: Independent Transfer Assistance: Independent Active Director Of Housing: Yes Additional Comments: pt states d/t PD, he requires assistance with transfers and ambulation; pt hadHH PT GLASS FURNACE OPERATOR Restrictions/Precautions: Restrictions/Precautions: General Precautions,Fall Risk Required Braces [...] with LAQ noted Functional Outcome Measures: Completed [facility] Inpatient Mobility without Stair Climbing Raw Score : 12 [facility] Inpatient without Stair Climbing T-Scale Score : [...] to navigate home distances. Additional Goals?: No Clinical Case Manager Goals Time Frame for director long term care goals : N/A due to short ELOS Following session, patient left in safe position with all fall risk precautions in place. * Lulu Chan OT - 02/15/2022 2:57 PM EDT [facility] 7K Occupational Therapy Daily Note Time: Time In: 1452 Time Out: 1520 Timed Code Treatment Minutes: 28 Minutes Minutes: 28 Date: 02/15/2022 Patient Name: Alisia Correa, Gender: male Room: [address] [place] [address] : 1960 (61 y.o.) Referring Practitioner: Maki [...] Vaughan PT - 02/14/2022 3:02 PM EDT [facility] INPATIENT PHYSICAL THERAPY DAILY NOTE [facility] 7K - 7K-12/012-A Time In: 1416 [...] Ambulation Assistance: Independent Transfer Assistance: Independent Active Director Of Housing: Yes Additional Comments: pt states d/t PD, he requires assistance with transfers and ambulation; pt hadHH PT GLASS FURNACE OPERATOR Restrictions/Precautions: Restrictions/Precautions: General Precautions,Fall Risk Required Braces [...] and hip abd/add Functional Outcome Measures: Completed [facility] Inpatient Mobility without Stair Climbing Raw Score : 13 [facility] Inpatient without Stair Climbing T-Scale Score : [...] to navigate home distances. Additional Goals?: No Clinical Case Manager Goals Time Frame for director long term care goals : N/A due to short ELOS [...] HOLLY Mchugh - 02/14/2022 10:57 AM EDT [facility] OCCUPATIONAL THERAPY MISSED TREATMENT NOTE [facility] 7K 7K-12/012-A Date: 02/14/2022 Patient Name: Alisia Correa CSN: [id number] : 1960 (61 y.o.) Gender: male Referring [...] HOLLY Morejon - 02/13/2022 12:33 PM EDT [facility] 7 Occupational Therapy Daily Note Time: Time In: 1109 Time Out: 1135 Timed Code Treatment Minutes: 26 Minutes Minutes: 26 Date: 02/13/2022 Patient Name: Alisia Correa, Gender: male Room: [facility]012 : 1960 (61 y.o.) Referring Practitioner: Maki [...] Vaughan, PT - 02/13/2022 11:02 AM EDT [facility] INPATIENT PHYSICAL THERAPY DAILY NOTE [facility] 7K - 7K-12/012-A Time In: 903 [...] Ambulation Assistance: Independent Transfer Assistance: Independent Active Director Of Housing: Yes Additional Comments: pt states d/t PD, he requires assistance with transfers and ambulation; pt hadHH PT GLASS FURNACE OPERATOR Restrictions/Precautions: Restrictions/Precautions: General Precautions,Fall Risk Required Braces [...] to navigate home distances. Additional Goals?: No Nursing Home Goals Time Frame for penitentiary goals : N/A due to short ELOS [...] HOLLY Morejon - 02/12/2022 2:39 PM EDT [facility] 7 Occupational Therapy Daily Note Time: Time In: 1356 Time Out: 1439 Timed Code Treatment Minutes: 43 Minutes Minutes: 43 Date: 02/12/2022 Patient Name: Alisia Correa, Gender: male Room: [address] [place] [address] : 1960 (61 y.o.) Referring Practitioner: Maki [...] Patient tolerance of treatment: fair. Discharge Recommendations: Subacute/longterm facility and Inpatient Therapy Stay Equipment Recommendations: [...] Status: At risk for malnutrition (Comment) (02/10/22 2203) Context: Acute Illness Findings of the 6 clinical characteristics of malnutrition: Energy Intake: No significant decrease in energy intake Weight Loss: (4.8% wt loss in 18 days however now eating 76-100%) Body Fat Loss: No significant body fat loss Muscle Mass Loss: No significant muscle mass loss Fluid Accumulation: Mild Extremities Precision Agriculture Specialist Strength: Not Performed Nutrition Assessment: Pt. nutritionally [...] Anthropometric Measures: Height: 5' 10 (177.8 cm) [place] Body Weight (IBW): 166 lbs (75 kg) [...] 1625-1806kcals (18-20kcals/kgm) Weight Used for Protein Requirements: [place] Protein (g/day): 105-150 grams (1.4-2 grams protein/kgm [...] Corrales PTA - 02/12/2022 11:52 AM EDT [facility] INPATIENT PHYSICAL THERAPY DAILY NOTE [facility] 7K - 7K-12/012-A Time In: 827 Time Out: 905 Timed Code Treatment Minutes: 38 Minutes Minutes: 38 Date: 02/12/2022 Patient Name: Ailsia Correa, Gender: male : 1960 (61 y.o.) [...] Ambulation Assistance: Independent Transfer Assistance: Independent Active Director Of Housing: Yes Additional Comments: pt states d/t PD, he requires assistance with transfers and ambulation; pt hadHH PT GLASS FURNACE OPERATOR Restrictions/Precautions: Restrictions/Precautions: General Precautions,Fall Risk Required Braces [...] to navigate home distances. Additional Goals?: No Clinical Case Manager Goals Time Frame for penitentiary goals : N/A due to short ELOS [...] 02/11/2022 6:16 PM EDT Pt admitted to [facility] via cart/stretcher. Complaints: L2-S1 degenerative disc disease. [...] room. Explained patients right to have family, sales representative facility services or physician notified of their admission. Patient has Declined for physician to be notified. Patient has Declined for family/sales representative facility services to be notified. The patient is interested in [facility] to [facility] program?: No Policies and procedures for explained. All questions answered with no further questions at this time. Fall prevention and safety brochure discussed with patient. Bed alarm on. Call light in reach. * Peace Alonso RN - 02/11/2022 5:00 PM EDT Call placed to patients Dipti. Updated that the patient is transferring to [facility]. * Pamela Lees, PT - 02/11/2022 3:42 PM EDT [facility] INPATIENT PHYSICAL THERAPY DAILY NOTE [facility] [...] Ambulation Assistance: Independent Transfer Assistance: Independent Active Director Of Housing: Yes Additional Comments: pt states d/t PD, he requires assistance with transfers and ambulation; pt hadHH PT GLASS FURNACE OPERATOR Restrictions/Precautions: Restrictions/Precautions: General Precautions,Fall Risk Required Braces or Orthoses Spinal: Lumbar Corset Other: Abdominal Binder Position Activity Restriction Spinal Precautions: No Bending,No Lifting,No Twisting Other position/activity restrictions: hx PD; monitor BP SUBJECTIVE: first trial in am pt stated just back to bed. Second trial in pm pt agreeable for PT and OOB to chair PAIN: 04/27: MILLER, per pt had IMLLER after back to bed from chair this [...] to navigate home distances. Additional Goals?: No Nursing Home Goals Time Frame for penitentiary goals : N/A due to short ELOS Following session, patient left in safe position with all fall risk precautions in place. * HOLLY Valles - 02/11/2022 1:02 PM EDT [facility] ICU STEPDOWN TELEMETRY 4K Occupational Therapy Daily Note Time: Time In: 1045 Time Out: 1129 Timed Code Treatment Minutes: 44 Minutes Minutes: 44 Date: 02/11/2022 Patient Name: Alisia Correa, Gender: male Room: [address] [place] [address] : 1960 (61 y.o.) Referring Practitioner: Maki [...] muscle mass loss Fluid Accumulation: Mild Extremities Precision Agriculture Specialist Strength: Not Performed Nutrition Assessment: Pt. nutritionally [...] Anthropometric Measures: Height: 5' 10 (177.8 cm) [place] Body Weight (IBW): 166 lbs (75 kg) [...] 1625-1806kcals (18-20kcals/kgm) Weight Used for Protein Requirements: [place] Protein (g/day): 105-150 grams (1.4-2 grams protein/kgm [...] EDT Physician Progress Note PATIENT: ALISIA CORREA [facility] #: [id number] : 1960 ADMIT DATE: 02/07/2022 8:09 AM [...] you! Ronny Salcedo, FARIBAN,RN, CRCR RN Clinical Cutting Table Operator P: [phone] Options provided: -- Hypovolemic Shock -- Hypovolemia [...] Margoth PeaceHOLLY - 02/10/2022 2:42 PM EDT [facility] ICU STEPDOWN TELEMETRY 4K Occupational Therapy Daily Note Time: Time In: 1358 Time Out: 1421 Timed Code Treatment Minutes: 23 Minutes Minutes: 23 Date: 02/10/2022 Patient Name: Alisia Correa, Gender: male [facility] : 1960 (61 y.o.) Referring Practitioner: Maki [...] Alisia Correa Date of : 1960 Acct: [id number] Admit Date: 02/07/2022 Primary Duct Cleaner: none Per Dr Schrader's note: REASON FOR [...] Calix PTA - 02/10/2022 9:53 AM EDT [facility] INPATIENT PHYSICAL THERAPY DAILY NOTE [facility] ICU STEPDOWN TELEMETRY - -A Time In: 08 Time Out: 902 Timed Code Treatment Minutes: 45 Minutes Minutes: 45 Date: 02/10/2022 Patient Name: Aliisa Correa, Gender: male : 1960 (61 y.o.) [...] Needs assistance Transfer Assistance: Needs assistance Active Director Of Housing: No Additional Comments: pt states d/t PD, he requires assistance with transfers and ambulation; pt hadHH PT GLASS FURNACE OPERATOR Restrictions/Precautions: Restrictions/Precautions: General Precautions,Fall Risk Required Braces [...] with functional mobility. Functional Outcome Measures: Completed [facility] Inpatient Mobility Raw Score : 12 [facility] Inpatient T-Scale Score : 35.33 ASSESSMENT: Assessment: [...] to navigate home distances. Additional Goals?: No Nursing Home Goals Time Frame for penitentiary goals : N/A due to short ELOS [...] Progress Note PATIENT: ALISIA CORREA CSN #: [id number] : 1960 ADMIT DATE: 02/07/2022 8:09 AM [...] Dulera Thank you! Nevaeh Goldsmith, RN, BSN, COAL BRIQUETTE 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, CCDS Clinical Cutting Table Operator Options provided: -- Acute pulmonary insufficiency following [...] Alisia Correa Date of : 1960 Acct: [id number] -A Primary Care Physician: ELLEN CRABTREE DO [...] TROPONINT in the last 72 hours. Imaging: @[id number]@ EKG: Diet: ADULT DIET; Regular; 4 carb [...] 914 Rapid Response team arrived. Marielena Mustafa INDUSTRIAL REGISTERED NURSE at bedside. Saline bolus ordered and started. 921 BP 70/46 0923 Orders received. Start on telemetry monitoring, CXR, Increase Midodrine to TID, Stat H+H. 0937 Orders received. H+H at 1700, CBC in AM 1007 CXR at bedside. BP 64/45. Hgb 11.4. IM notified. 1023 BP continues to be low. 500mL saline bolus started 1141 BP 85/47 after bolus. Updated JUVENILE COUNSELOR. 1218 BP 70/38, MD at bedside. Ordered [...] Griffin OT - 02/08/2022 1:01 PM EDT [facility] INPATIENT OCCUPATIONAL THERAPY [facility] 7K EVALUATION Time: Time In: 1052 [...] needing to return to bed from recliner. VEHICLE TRIMMER present to assist. Pain: 3/10 Vitals: Blood [...] Needs assistance Transfer Assistance: Needs assistance Active Director Of Housing: No Additional Comments: pt states d/t PD, he requires assistance with transfers and ambulation; pt hadHH PT GLASS FURNACE OPERATOR VISION:WFL HEARING: WFL COGNITION: Slow Processing and [...] Pandya, PT - 02/08/2022 10:33 AM EDT [facility] INPATIENT PHYSICAL THERAPY EVALUATION [facility] 7K - 7K-26/026-A Time In: 0748 [...] Assistance: Needs assistance ( assists him) Active Director Of Housing: No Additional Comments: pt states d/t PD, he requires assistance with transfers and ambulation; pt hadHH PT GLASS FURNACE OPERATOR OBJECTIVE: Range of Motion: Bilateral Lower Extremity: [...] diaphoretic, and lightheaded Functional Outcome Measures: Completed [facility] Inpatient Mobility Raw Score : 11 [facility] Inpatient T-Scale Score : 33.86 ASSESSMENT: Activity [...] Recommendations: Discharge Recommendations: Continue to assess pending progress,Subacute/Half-Way Facility. Unsafe to return home at this [...] to navigate home distances. Additional Goals?: No Clinical Case Manager Goals Time Frame for penitentiary goals : N/A due to short ELOS [...] ordered Zetia 10 mg nightly. Per the [facility] Formulary Committee Policy, this medication is non-formulary [...] 02/07/2022 2:11 PM EDT Pt admitted to [facility] via cart/stretcher. Complaints: L2-S1 decompression/fusion. IV normal [...] room. Explained patients right to have family, sales representative facility services or physician notified of their admission. Patient has Declined for physician to be notified. Patient has Declined for family/sales representative facility services to be notified. The patient is interested in [facility] meds to beds program?: No Policies and procedures for explained. All questions answered with no further questions at this time. Fall prevention and safety brochure discussed with patient. Bed alarm on. Call light in reach. * Kiara Toro RN - 02/07/2022 9:49 AM EDT ADMITTED TO [facility] AND ORIENTED TO UNIT. SCDS ON. FALL AND ALLERGY BANDS ON. PT VERBALIZED APPROVAL FOR FIRST NAME, LAST INITIAL AND PHYSICIAN NAME ON UNIT WHITEBOARD. * Evangelist Cummins - 01/20/2022 9:11 AM EDT Called for PAT reminder Lft Msg. documented in this [facility] [employer] Work Phone: 1(302) 119-294105-03-2022 Hospital Discharge instructions* Discharge Instr - DYLON* [...] directive for healthcare treatment Durable power of traffic law attorney for health care No, copy requested from family Healthcare power of traffic law attorney Dipti- -- Admitting Physician: Frank Oden MD PCP: ELLEN CRABTREE DO Discharging Nurse: Discharging Hospital Unit/Room#: 7K-12/012-A Discharging Unit Phone Number: Emergency Contact: Extended Emergency Contact Information Primary Emergency Contact: Dipti Correa Mobile Relation: Spouse Preferred language: Georgian Ore 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 No Past Surgical History: Past Surgical History: Procedure Laterality Date BACK SURGERY x8 CYST REMOVAL spine with back surgery ESOPHAGUS SURGERY for cancer HAND SURGERY x3 HIP ARTHROPLASTY Bilateral KNEE ARTHROPLASTY Bilateral left x2 LUMBAR FUSION N/A 02/07/2022 L2-S1 DECOMPRESSION L2-S1 POSTERIOR FUSION WITH ILIAC BOLTS, L5-S1 TLIF performed by Frank Oden MD at [facility] OR NECK SURGERY lymph nodes SHOULDER SURGERY [...] Assisted Dressing Assisted Toileting Assisted Feeding Assisted Chief Operating Engineer Assisted Med Delivery whole Wound Care Documentation [...] applicable) Name: Address: Dialysis Schedule: Phone: Fax: Tow Feeder/Weighing Station Operator signature: {Esignature:[id number]} PHYSICIAN SECTION Prognosis: {Prognosis:5346502088} Condition at Discharge: { Patient Condition:080060166} Rehab Potential (if transferring to Rehab): {Prognosis:1311673611} Recommended Labs or Other Treatments After Discharge: Physician Certification: I certify the above information and transfer of Alisia Correa is necessary for the continuing treatment of the diagnosis listed and that he requires {Admit to Appropriate Level of Care:22514} for {GREATER/LESS:632919300} 30 days. Update Admission H&P: {CHP DME Changes in HandP:894049659} PHYSICIAN SIGNATURE: * Additional Instructions* Nevaeh Oviedo [...] All vegetables, especially asparagus, jack sprouts, broccoli, [place] sprouts, cabbage, carrots, cauliflower, celery, corn, greens, [...] taking more than one drug. This includes [id number] medication and herb or dietary supplements. Plan [...] dr schrader 6-8 weeks [facility] this [facility] Work Phone: 1(617) 127-211704-23-2022 NotePROCEDURE: XR CHEST PORTABLE CLINICAL INFORMATION: SOB. [...] by: Romel Maldonado DO 02/08/22 Final resultSaint [facility]-2022 NotePROCEDURE: XR CHEST PORTABLE CLINICAL INFORMATION: SOB. [...] stable degenerative changes of the acromioclavicular joints. [id number] NotePROCEDURE: XR LUMBAR SPINE 1 VW CLINICAL [...] by: Milton Way MD 02/07/22 Final resultSaint Saint Al[facility]04-22-2022 NotePROCEDURE: XR LUMBAR SPINE 1 VW CLINICAL [...] behind the L2 and L3 vertebral bodies. [facility] RIS [id number] Evaluation note* Encounter Date Diagnosis Assessment Notes [...] Nasal swab noted MRSA. Advised patient to black pickler antibiotic and start it as soon as possible. [employer] Other [id number] NotePROCEDURE: XR CHEST (2 VW) CLINICAL INFORMATION: [...] Signed by: Olga Espinoza MD 01/23/22 Final [facility]04-04-2022 Evaluation note* Encounter Date Diagnosis Assessment Notes Treatment Notes Treatment Clinical Notes Jan, Parkinsonism (ICD-10 - G20) Jan, Diabetes (ICD-10 - E11.9) [employer] Other 03-28-2022 Evaluation note* Encounter Date Diagnosis Assessment Notes Treatment Notes Treatment Clinical Notes Dec, Constipation (ICD-10 - K59.00) [employer] Other 02-17-2022 Evaluation note* Encounter Date Diagnosis Assessment Notes Treatment Notes Treatment Clinical Notes Nov, Hyperlipidemia (ICD-10 - E78.5) Nov, Parkinsonism (ICD-10 - G20) Patient following with neurologist Dr. Mancia and oyster worker Dr. Harris. He reports improvement with his [...] symptoms, symptom details unspecified (ICD-10 - N40.1) [employer] Other 02-07-2022 Miscellaneous Notes* Telephone Encounter - Chrissy Christian - 11/25/2021 3:17 PM EST FINAL ATTEMPT Called and left detailed message for patient to call to schedule procedure with pain management. Will follow up. Patient provided with direct extension to reach surgical coordinators. If patient calls back, please transfer to [phone]. * Telephone Encounter - Chrissy Christian - 11/21/2021 6:07 PM EST Bilateral L 2-3 ,3-L4, L4-L5 and L5-S1 FACET ALISIA CORREA [id number] JEANNIE HENDERSON Called and left detailed message for patient to call to schedule procedure with pain management. Will follow up. Patient provided with direct extension to reach surgical coordinators. If patient calls back, please transfer to [phone]. * Telephone Encounter - Chrissy Christian - 11/14/2021 11:53 AM EST Bilateral L 2-3 ,3-L4, L4-L5 and L5-S1 FACET ALISIA CORREA [id number] JEANNIE Called and left detailed message for patient to call to schedule procedure with pain management. Will follow up. Patient provided with direct extension to reach surgical coordinators. If patient calls back, please transfer to [phone]. * Telephone Encounter - Kiara Dhaliwal RN [...] relief from today's block. documented in this encounterUniversity [facility]als [facility] System01-05-2022 Evaluation note* Encounter Date Diagnosis Assessment Notes Treatment Notes Treatment Clinical Notes Oct, Hypotension, unspecified hypotension type (ICD-10 - I95.9) Oct, Risk for falls (ICD-10 - Z91.81) Oct, Diabetes (ICD-10 - E11.9) Oct, Neuropathy (ICD-10 - G62.9) Oct, Failed back syndrome (ICD-10 - M96.1) Oct, Parkinsonism (ICD-10 - G20) [employer] Other 12-13-2021 Evaluation note* Encounter Date Diagnosis Assessment Notes Treatment Notes Treatment Clinical Notes Sep, Parkinsonism (ICD-10 - G20) [employer] Other 11-16-2021 Evaluation note* Encounter Date Diagnosis Assessment Notes Treatment Notes Treatment Clinical Notes Aug, Benign prostatic hyperplasia with lower urinary tract symptoms (ICD-10 - N40.1) [employer] Other 11-09-2021 Evaluation note* Encounter Date Diagnosis [...] I strongly recommend the patient contact his galley worker to be evaluated. 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 [employer] Other 10-28-2020 History of Present illness Narrative* [...] 15, 2020 8:27 AM documented in this encounterUniversity Hospitals Health System08-28-2020 History of Present illness Narrative* Peace Block [...] 15, 2020 9:03 AM documented in this encounterUniversity Hospitals Health System02-19-2018 History of Past illness Narrative* Problem Noted Date Resolved Date Ulcerative lesion 12/07/2017 07/21/2019 Glenohumeral arthritis 07/17/2016 9 SPRAIN OF NECK () 03/06/2004 07/21/20 19 Brachial neuritis or radiculitis 03/06/2004 12/22/2018 Carpal tunnel syndrome 03/06/2004 9 documented as of this encounter (statuses as of 01/28/2022) [facility] History of Past illness Narrative* Problem Noted Date Resolved Date Ulcerative lesion 12/07/2017 07/21/2019 Glenohumeral arthritis 07/17/2016 9 Urgency of urination 07/31/2006 12/05/2022 SPRAIN OF NECK () 03/06/2004 07/21/20 19 Brachial neuritis or radiculitis 03/06/2004 12/22/2018 Carpal tunnel syndrome 03/06/2004 9 documented as of this encounter (statuses as of 12/06/2022) [facility] History of Past illness Narrative* Problem Noted Date Resolved Date Ulcerative lesion 12/07/2017 07/21/2019 Glenohumeral arthritis 07/17/2016 9 Urgency of urination 07/31/2006 12/05/2022 SPRAIN OF NECK () 03/06/2004 07/21/20 19 Brachial neuritis or radiculitis 03/06/2004 12/22/2018 Carpal tunnel syndrome 03/06/2004 9 documented as of this encounter (statuses as of 12/25/2022) [facility] History of Past illness Narrative* Problem Noted Date Diagnosed Date Resolved Date Ulcerative lesion 12/07/2017 07/21/2019 Glenohumeral arthritis 07/17/201612/22 Urgency of urination 07/31/2006 023 SPRAIN OF NECK () 03/06/200412/2018 Brachial neuritis or radiculitis 03/06/2004 12/22/2018 Carpal tunnel syndrome 03/06/200412/22 documented as of this encounter (statuses as of 05/29/2023) [facility] History of Past illness Narrative* Problem Noted Date Diagnosed Date Resolved Date Ulcerative lesion 12/07/2017 07/21/2019 Glenohumeral arthritis 07/17/201612/22 Urgency of urination 07/31/2006 023 SPRAIN OF NECK () 03/06/200412/2018 Brachial neuritis or radiculitis 03/06/2004 12/22/2018 Carpal tunnel syndrome 03/06/200412/22 documented as of this encounter (statuses as of 05/29/2023) [facility] History of Past illness Narrative* Problem Noted Date Diagnosed Date Resolved Date Ulcerative lesion 12/07/2017 07/21/2019 Glenohumeral arthritis 07/17/201612/22 Urgency of urination 07/31/2006 023 SPRAIN OF NECK () 03/06/2004 100 12/2018 Brachial neuritis or radiculitis 03/06/2004 12/22/2018 Carpal tunnel syndrome 03/06/200412/22 documented as of this encounter (statuses as of 05/29/2023) [facility]08-[facility]-2012 History general Narrative - Reported* Type Description Date Medical History 06/07/12 Stress Test [facility] Medical History 2008-colonoscopy ruba [facility]; 07/2016 colonoscopy/egd [facility] Medical History 01/26/15 Labs Medical History 03/2016- [place] test [place] Medical History 03/2016 EGD [place] [facility] Medical History 08/20/16 PSA ( 0.79) Medical [...] total hip-CC 04/10/20 Hospitalization History SEE ABOVE [employer] Other [id number] History general Narrative - Reported* Type Description Date Medical History 06/07/12 Stress Test [facility] Medical History 2008-colonoscopy [facility]; 07/2016 colonoscopy/egd [facility] Medical History 01/26/15 Labs Medical History 03/2016- stress test and echocar diogram at [facility] Medical History 03/2016 EGD at [facility] Medical History 08/20/16 PSA ( 0.79) Medical [...] Owens r 10/2021 Hospitalization History SEE ABOVE [employer] Other 08-20-2012 History general Narrative - Reported* Type Description Date Medical History 06/07/12 Stress Test [facility] Medical History 2008-colonoscopy wit h Dr. Ordonez; 07/2016 colonoscopy/egd [facility] Medical History 01/26/15 Labs Medical History 03/2016- [place]2016 [place] Medical History 08/20/16 PSA ( 0.79) Medical [...] Owens r 10/2021 Hospitalization History SEE ABOVE [employer] Other 08-20-2012 History general Narrative - Reported* Type Description Date Medical History 06/07/12 Stress Test NO Medical History 2008-colonoscopy ruba Ordonez; 07/2016 colonoscopy/egd [facility] Medical History 01/26/15 Labs Medical History 03/2016- [place] Medical History 03/2016 [place] Medical History 08/20/16 PSA ( 0.79) Medical [...] Dr Romo 01/2022 Hospitalization History SEE ABOVE [employer] Other 08-20-2012 History general Narrative - Reported* Type Description Date Medical History 06/07/12 Stress Test NO Medical History 2008-colonoscopy ruba Ordonez; 07/2016 colonoscopy/egd [facility] Medical History 01/26/15 Labs Medical History 03/2016- [place] Medical History 03/2016 [place] Medical History 08/20/16 PSA ( 0.79) Medical [...] History SEE ABOVE Hospitalization History pneumonia 10/2022 [employer] Other 08-20-2012 History general Narrative - Reported* Type Description Date Medical History 06/07/12 Stress Test [facility] Medical History 2008-colonoscopy wit h Dr. Ordonez; 07/2016 colonoscopy/egd [facility] Medical History 01/26/15 Labs Medical History 03/2016- [place] Medical History 03/2016 [place] Medical History 08/20/16 PSA ( 0.79) Medical [...] History SEE ABOVE Hospitalization History pneumonia 10/2022 [facility] Other Chief complaint Narrative - ReportedALISIA CORREA is being seen for a consultation for chest pain.-[facility] [address] DO Work Phone: Chiwr complaint Narrative - Reported* ALISIA CORREA is being seen for a consultation for chest pain. * 60-year-old white male who is being evaluated at the request of PCP for symptoms of dyspnea and chest pain with syncope. The patient appears older than his stated age and unfortunately has history ofParkinson's disease followed by neurology from [place] on medical therapy. The patient has been [...] 7 Parkinson's disease followed by neurology from [place]. * 8 obesity, encouraged the patient to reduce caloric consumption * 9 possible PAD, patient is following up with podiatry -[facility] [address] [place] Work Phone: Evaluation + Plan note Future Appointments Appointment Date:02/20/2023 09:15:00 AM Scheduled Provider:Fidel IBARRA MD Location:[facility] Appointment Type:URO Office Visit [facility] evaluation + Plan note Future Appointments Appointment Date:03/20/2023 09:00:00 AM Scheduled Provider: Location:[facility] Appointment Type:URO Nurse Visit [facility] evaluation + Plan note Future Appointments Appointment Date:04/17/2023 09:00:00 AM Scheduled Provider: Location:[facility] Appointment Type:URO Nurse Visit [facility] evaluation + Plan note Future Appointments Appointment Date:05/25/2023 11:00:00 AM Scheduled Provider: Location:[facility] Appointment Type:URO Nurse Visit [facility] evaluation + Plan note Future Appointments Appointment Date:06/19/2023 11:00:00 AM Scheduled Provider: Location:[facility] Appointment Type:URO Nurse Visit [facility] evaluation + Plan note Future Appointments Appointment Date:06/19/2023 11:00:00 AM Scheduled Provider: Location:[facility] Appointment Type:URO Nurse Visit Diagnostic Tests Pending * [facility]ments Appointment Date:07/17/2023 11:00:00 AM Scheduled Provider: Location:[facility] Appointment Type:URO Nurse Visit [facility] evaluation + Plan note Future Appointments Appointment Date:07/17/2023 11:00:00 AM Scheduled Provider: Location:[facility] Appointment Type:URO Nurse Visit Diagnostic Tests Pending * [facility] Future App[facility]ments Appointment Date:08/14/2023 11:00:00 AM Scheduled Provider: Location:[facility] Appointment Type:URO Nurse Visit [facility] evaluation + Plan note Future Appointments Appointment Date:08/14/2023 11:00:00 AM Scheduled Provider: Location:[facility] Appointment Type:URO Nurse Visit Diagnostic Tests Pending * Urine [facility] Future App[facility]ments Appointment Date:09/14/2023 11:00:00 AM Scheduled Provider: Location:[facility] Appointment Type:URO Nurse Visit [facility] evaluation + Plan note Future Appointments Appointment Date:10/20/2023 11:00:00 AM Scheduled Provider: Location:[facility] Appointment Type:URO Nurse Visit [facility] evaluation + Plan note Future Appointments Appointment Date:11/16/2023 11:00:00 AM Scheduled Provider: Location:[facility] Appointment Type:URO Nurse Visit Diagnostic Tests Pending * [facility] Diagnosis Lumbar stenosis with neurogenic claudication- Primary Spinal stenosis, lumbar region, with neurogenic claudication Idiopathic hypotension Hypotension, unspecified documented in this encounter [employer] Work Phone: evaluation noteNo [facility] [employer] Other evaluation note* Diagnosis NO SHOW- Primary [facility] Diagnosis Postlaminectomy syndrome of lumbar region Postlaminectomy syndrome, lumbar region Pain in thoracic spine Spinal cord stimulator status Other postprocedural status [facility] Diagnosis Radiculopathy of lumbar region Thoracic or lumbosacral neuritis or radiculitis, unspecified [facility]* Diagnosis Pain in thoracic spine S/P insertion of spinal cord stimulator [facility] Narrative No data available for this section [facility] Hospital Discharge instructions No data available for this section [facility] progress note No data available for this section [facility] reason for referral (narrative)* Reason Home physical therap y evaluation and treatment requested. Diagnosis 1 Hypotension, unspeci fied hypotension type (I95.9) Diagnosis 2 Diabetes (E11.9) Diagnosis 3 Parkinsonism (G20) Diagnosis 4 Neuropathy (G62.9) Diagnosis 5 Failed back syndrome (M96.1) Diagnosis 6 Risk for falls (Z91. 81) Referral Organization [facility] [place] Referring Provider First Name Ellen Referring Provider Last Name Leyda Referring Provider Specialty Family Prac candice Referred Organization [facility] Referred Address [address] [place] [address],[facility] Referred Provider Specialty Physical The rapist Referral Priority Routine [employer] Other Reason for visit Narrative* Auth/Cert Specialty Diagnoses / Procedures Referred By Agustina molina Referred To Contact Diagnoses Lumbosacral spinal stenosis LUMBOSACRAL SPINAL STENOSIS Procedures POSTERIOR SEGMENTAL INSTRUMENTATION 3-6 VRT SEG OR INSJ BIOMCHN DEV INTERVERTEBRAL DSC SPC W/ARTHRD OR ALLOGRAFT FOR SPINE SURGERY ONLY MORSELIZED OR ARTHRODESIS COMBINED TQ 1NTRSPC LUMBAR OR ALEGRIA FACETEC/FORAMOT DRG ARTHRD LUMBAR 1 VRT SGM OR ALEGRIA FACETEC/FORAMOT DRG ARTHRD LMBR EA ADDL SGM OR ARTHRODESIS PST/PSTLAT TQ 1NTRSPC EA ADDL NTRSPC L2-S1 DECOMPRESSION L2-S1 POSTERIOR FUSION WITH ILIAC BOLTS, L5-S1 TLIF Frank Oden MD [address] [place] [address] [place] [address] [employer] [address] [place] [address] Referral ID Status Reason Start Date Expiration Date Visits Re quested Visits Authorized [id number] 1 1 [employer] Phone: Summary Purpose Family History No Family [...] FoundDocuments on File Type Date Recorded Patient Spot Washer Expl anation Advance Directive(s) 11/08/2021 10:04 AM [...] With: Patient Hospital Course Note HNO ID: [id number] Author: Rolly Naik Service: Orthopaedic Surgery Author Type: Physician Plate Fitter Type: Discharge Summary Filed: 11/12/2019 2:21 PM [...] (more content not included)... Note HNO ID: [id number] Author: Jason Guevara Jr. Service: Orthopaedic Surgery [...] (more content not included)... Note HNO ID: [id number] Author: Judy Mathews Service: ? Author Type: Nurse Tile Setter Type: Anesthesia Procedure Notes Filed: 05/03/2020 1:32 PM Note Text: ANESTHESIOLOGY PROCEDURE NOTE Airway General Information Procedure Start Time/Medication Administration: 05/03/2020 12:55 PM Patient location during procedure: [place] Staffing CLINICAL NURSE EDUCATOR: Kathleen Mathews Performed by: APRIL Indications and [...] not included)... Procedure Findings Note HNO ID: [id number] Author: Judy Mathews Service: ? Author Type: Nurse Tile Setter Type: Anesthesia Procedure Notes Filed: 05/03/2020 1:32 PM Note Text: ANESTHESIOLOGY PROCEDURE NOTE Airway General Information Procedure Start Time/Medication Administration: 05/03/2020 12:55 PM Patient location during procedure: [place] Staffing CLINICAL NURSE EDUCATOR: Kathleen Mathews Performed by: APRIL Indications and [...] 1 [place]in esophagus (K 22.70) Referral Organization [facility] [place] Referring Provider First Name Ellen Referring Provider Last Name Kuns Referring Provider Specialty Family Prac candice Referred Organization [facility] Gastroenterolo gy Referred Provider Yifan Gama Referred Address [address],[place],[address] Referred Provider Specialty Gastroentero logy Referral Priority [...] section and content) DATE CREATED AUTHOR 04/09/2018 [facility] DATE CREATED AUTHOR AUTHOR'S ORGANIZ ATION 04/14/2018 [facility] DATE CREATED AUTHOR AUTHOR'S ORGANIZ ATION 04/14/2018 [facility] DATE CREATED AUTHOR AUTHOR'S ORGANIZ ATION 05/12/2020 [facility] DATE CREATED AUTHOR AUTHOR'S ORGANIZ ATION 09/17/2020 [facility] DATE CREATED AUTHOR AUTHOR'S ORGANIZ ATION 08/18/2021 [facility] DATE CREATED AUTHOR AUTHOR'S ORGANIZ ATION 09/10/2021 [facility] DATE CREATED AUTHOR AUTHOR'S ORGANIZ ATION 02/23/2022 [facility] DATE CREATED AUTHOR AUTHOR'S ORGANIZ ATION 12/15/2022 [facility] DATE CREATED AUTHOR AUTHOR'S ORGANIZ ATION 12/26/2022 [facility] DATE CREATED AUTHOR AUTHOR'S ORGANIZ ATION 03/29/2023 [facility] DATE CREATED AUTHOR AUTHOR'S ORGANIZ ATION 08/25/2023 [facility] DATE CREATED AUTHOR AUTHOR'S ORGANIZ ATION 10/24/2023 [facility] Source Comments (unrecognize d section and content) In the event this informatio n is protected by the Federal Confidentiality of Alcohol and Drug Abuse Patient Records regulations: The Federal rules restrict any use of the information to criminally investigate or prosecute any alcohol or drug abuse patient.[facility] the event this information is protected by the Federal Confidentiality of Alcohol and Drug Abuse Patient Records regulations: The Federal rules restrict any use of the information to criminally investigate or prosecute any alcohol or drug abuse patient.[facility] SystemIn the event this information is protected by the Federal Confidentiality of Alcohol and Drug Abuse Patient Records regulations: The Federal rules restrict any use of the information to criminally investigate or prosecute any alcohol or drug abuse patient.[facility] SystemIn the event this information is protected by the Federal Confidentiality of Alcohol and Drug Abuse Patient Records regulations: The Federal rules restrict any use of the information to criminally investigate or prosecute any alcohol or drug abuse patient.[facility] SystemIn the event this information is protected by the Federal Confidentiality of Alcohol and Drug Abuse Patient Records regulations: The Federal rules restrict any use of the information to criminally investigate or prosecute any alcohol or drug abuse patient.[facility] SystemIn the event this information is protected by the Federal Confidentiality of Alcohol and Drug Abuse Patient Records regulations: The Federal rules restrict any use of the information to criminally investigate or prosecute any alcohol or drug abuse patient.[facility] Reason for Visit (unrecogniz ed section and content) Reason Comments Post Op Reason Comments Medication Problem Reason Onset Date Comments No Show 12/24/2022 No show Reason Comments Radiology CT Care Teams (unrecognized sec tion and content) Line Construction Supervisor Relationship Specialty Start Date End Date Ellen Crabtree Boogie [address] [place] [phone] PCP - General 06/10/02 [employer] Supervisor Relationship Specialty Start Date End Date Ellen Crabtree DO PCP - General Family Medicine 01/23/22 [employer] Super[employer] Relationship Specialty Start Date End Date Michidavion Ellen Hyman [address] [place] [phone] PCP - General 06/10/02 [employer] Supervisor Relationship Specialty Start Date End Date Leyda Ellen Hyman [address] [place] [address] [phone] PCP - General 06/10/02 [employer] Supervisor Relationship Specialty Start Date End Date Ellen Crabtree [address] [place] [phone] PCP - General 06/10/02 [employer] Supervisor Relationship Specialty Start Date End Date Ellen Crabtree [address] [place] [phone] PCP - General 06/10/02 [employer] Supervisor Relationship Specialty Start Date End Date Ellen Crabtree [address] [place] [phone] PCP - General 06/10/02 Ordered Prescriptions [...] De La Garza RN)1729 (Given - Provider: Mlaik De La Garza RN)211 (Given - Provider: [...] Lezama RN) 0531 (See Alternative - Provider: Glaids Lezama RN)[phone] (See Alternative - Provider: Nevaeh [...] BE BASED ON THE PRIMARY CLINICAL RECORDS. [employer] provides no warranty or guarantee of the accuracy or completeness of information in this document.
[2023-11-08 13:53] VITALS: BP 143/88; PULSE 58; RESP 20; TEMP 36.4; O2SAT 95; BMI 30.1
--- NOTE | 2023-11-08 13:58 | PC.NURSE ---
Patient has chronic suprapubic catheter in place, cathter is nn
--- NOTE | 2023-11-08 13:59 | PC.NURSE ---
Patient has chronic suprapubic catheter in place, catheter not draining past 2 days. Little urine in tubing and bag that is dark yellow in color and foul smelling.
--- NOTE | 2023-11-08 14:10 | ED.MALEGU1 ---
HPI - Male Genitourinary General Chief complaint: Urogenital-Male Stated complaint: WELDER GAS TUNGSTEN ARC PROBLEM Time Seen by Provider: 11/08/23 13:45 Source: patient Mode of arrival: walk-in Limitations: no limitations History of Present Illness HPI Narrative: 63-year-old male presents because his suprapubic catheter isn't draining and he thinks he might have an infection. This catheter was placed about two weeks ago and was functioning until earlier today. His back has been hurting a bit as well. No fever or vomiting. Related Data Home Medications Medication Instructions Recorded Confirmed acarbose 25 mg tablet 25 mg PO TID 08/20/23 11/08/23 atorvastatin 10 mg tablet 10 mg PO DAILY 08/20/23 11/08/23 benzonatate 100 mg capsule 100 mg PO DAILY 08/20/23 11/08/23 carbidopa 25 mg-levodopa 100 mg 2 tab PO BID 08/20/23 08/21/23 tablet diclofenac sodium 75 mg 75 mg PO BID 08/20/23 11/08/23 tablet,delayed release docusate sodium 100 mg capsule 100 mg PO DAILY 08/20/23 11/08/23 duloxetine 60 mg capsule,delayed 60 mg PO DAILY 08/20/23 11/08/23 release ezetimibe 10 mg tablet 10 mg PO DAILY 08/20/23 11/08/23 fludrocortisone 0.1 mg tablet 0.2 mg PO .QD 08/20/23 11/08/23 midodrine 5 mg tablet 15 mg PO DAILY 08/20/23 11/08/23 montelukast 10 mg tablet 10 mg PO .QHS 08/20/23 11/08/23 ondansetron HCl 4 mg tablet 4 mg PO DAILY PRN nausea and 08/20/23 11/08/23 vomiting pregabalin 300 mg capsule 300 mg PO BID 08/20/23 11/08/23 tolterodine 4 mg capsule,extended 4 mg PO DAILY 08/20/23 11/08/23 release 24 hr topiramate 100 mg tablet 100 mg PO BID 08/20/23 11/08/23 carbidopa ER 25 mg-levodopa 100 mg 1 tab PO QID 08/21/23 11/08/23 tablet,extended release potassium citrate 15 mEq (1,620 15 meq PO TID 08/21/23 11/08/23 mg) tablet,extended release venlafaxine 75 mg capsule,extended 75 mg PO DAILY 08/21/23 11/08/23 release 24 hr (Effexor XR) Previous Rx's Medication Instructions Recorded gentamicin 100 mg/100 mL in sodium 500 mg (500 mL) IV Q24H UTI 3 days 08/22/23 chloride(iso) intravenous piggyback cephalexin 500 mg capsule 500 mg PO TID 7 days #21 caps 11/08/23 Allergies Allergy/AdvReac Type Severity Reaction Status Date / Time clonazepam Allergy Severe Difficulty Verified 11/08/23 13:58 Breathing levofloxacin [From Levaquin] Allergy Severe Difficulty Verified 11/08/23 13:58 Breathing moxifloxacin Allergy Intermediate Hives Verified 11/08/23 13:58 celecoxib [From Celebrex] Allergy Mild Hives Verified 11/08/23 13:58 erythromycin base Allergy Mild Gastrointestinal Verified 11/08/23 13:58 Upset Review of Systems ROS Narrative A ten point review of systems is negative except as noted above. 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N31.9 - Neuromuscular dysfunction of bladder, unspecified (ICD-10) Neuropathy ?G62.9 - Polyneuropathy, unspecified (ICD-10) Tonsillectomy planned FH: bilateral hip replacements ?Z82.69 - Family history of other diseases of the musculoskeletal system and connective tissue (ICD-10) Enlarged prostate ?N40.0 - Benign prostatic hyperplasia without lower urinary tract symptoms (ICD-10) 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, unspecified (ICD-10) 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 - Malignant (primary) neoplasm, unspecified (ICD-10) Esophageal cancer ?C15.9 - Malignant neoplasm of esophagus, unspecified (ICD-10) Barretts esophagus ?K22.70 - Rust's esophagus without dysplasia (ICD-10) GERD without esophagitis ?K21.9 - Gastro-esophageal reflux disease without esophagitis (ICD-10) Asthma ?J45.909 - Unspecified asthma, uncomplicated (ICD-10) COPD (chronic obstructive pulmonary disease) ?J44.9 - Chronic obstructive pulmonary disease, unspecified (ICD-10) Pneumonia ?J18.9 - Pneumonia, unspecified organism (ICD-10) COVID-19 ?U07.1 - COVID-19 (ICD-10) Kidney stones ?N20.0 - Calculus of kidney (ICD-10) Bladder stones ?N21.0 - Calculus in bladder (ICD-10) Type 2 diabetes mellitus ?E11.9 - Type 2 diabetes mellitus without complications (ICD-10) Hypotension ?I95.9 - Hypotension, unspecified (ICD-10) Surgical History (Updated 08/06/23 @ 08:15 by Jorge Contreras) H/O cystoscopy ?Z98.890 - Other specified postprocedural states (ICD-10) S/P insertion of spinal cord stimulator ?Z96.89 - Presence of other specified functional implants (ICD-10) Status post right rotator cuff repair ?Z98.890 - Other specified postprocedural states (ICD-10) H/O hand surgery ?Z98.890 - Other specified postprocedural states (ICD-10) History of left knee replacement ?Z96.652 - Presence of left artificial knee joint (ICD-10) History of left shoulder replacement ?Z96.612 - Presence of left artificial shoulder joint (ICD-10) Previous back surgery ?Z98.890 - Other specified postprocedural states (ICD-10) H/O gastric bypass ?Z98.84 - Bariatric surgery status (ICD-10) Family History (Updated 08/20/23 @ 20:33 by Barbara Mauro RN) Mother Family history of hypertension Family history of diabetes mellitus Family history of COPD (chronic obstructive pulmonary disease) Brother Family history of cancer Other Family history of CHF (congestive heart failure) Social History (Updated 08/20/23 @ 20:36 by Barbara Mauro RN) Within the past year, how often did you have a drink containing alcohol: never Within the past year, how often did you have six or more drinks on one occasion: never Score interpretation: A score less than 4 is consistent with normal alcohol consumption. Smoking status: Former smoker Highest level of school completed/degree received: some college, no degree Are you now , , , , never or living with a partner: In a typical week, how many times do you talk on the telephone with family, friends, or neighbors: 3 or more times per week How often do you get together with friends or relatives: 3 or more times per week Little interest or pleasure in doing things: several days Feeling down, depressed, or hopeless: several days Feel stressed/tense/nervous/anxious/difficulty sleeping: to some extent Do you think of yourself as: straight/heterosexual Gender Identity: male Exam Narrative Exam Narrative: Nurses note and vital signs reviewed and patient is not hypoxic. General: The patient appears well and in no apparent distress. Patient is resting comfortably on cart. Skin: Warm, dry, no pallor noted. There is no rash noted. Head: Normocephalic, atraumatic Eye: Normal conjunctiva, no drainage Ears, Nose, Mouth, and Throat: oral mucosa is moist. Nares patent. Cardiovascular: Regular Rate and Rhythm Respiratory: Patient is in no distress, no accessory muscle use, lungs are clear to auscultation, no wheezing, rales or rhonchi Back: non-tender, no CVA tenderness bilaterally to percussion. GI: soft and nontender : Suprapubic catheter in place. The dad is nearly empty with just a small amount of dark-colored urine present. Musculoskeletal: The patient has no evidence of calf tenderness, no pitting edema, symmetrical pulses noted bilaterally Neurological: A&O, normal speech Psychiatric: Cooperative Constitutional Vital Signs, click to edit/add: Last Vital Signs Temp 97.5 F L 11/08/23 13:53 Pulse 58 L 11/08/23 13:53 Resp 20 11/08/23 13:53 BP 143/88 H 11/08/23 13:53 Pulse Ox 95 11/08/23 13:53 O2 Del Method Room Air 11/08/23 13:53 Course Vital Signs Vital signs: Vital Signs Temperature 97.5 F L 11/08/23 13:53 Pulse Rate 58 L 11/08/23 13:53 Respiratory Rate 20 11/08/23 13:53 Blood Pressure 143/88 H 11/08/23 13:53 Pulse Oximetry 95 11/08/23 13:53 Oxygen Delivery Method Room Air 11/08/23 13:53 Temperature 97.5 F L 11/08/23 13:53 Pulse Rate 58 L 11/08/23 13:53 Respiratory Rate 20 11/08/23 13:53 Blood Pressure 143/88 H 11/08/23 13:53 Pulse Oximetry 95 11/08/23 13:53 Oxygen Delivery Method Room Air 11/08/23 13:53 MDM - Male Genitourinary MDM Narrative Medical decision making narrative: the patient presented with a blocked Ferro catheter. We attempted to irrigate but this was not successful. It has been changed and is draining normally now. Some white blood cells are present and a culture was ordered. He was given IV Rocephin here and prescribed Keflex. He states he feels like he has an infection of his urine. He has no evidence of pyelonephritis and I've no clinical suspicion of pyelonephritis. He doesn't require admission to the hospital. Treatment diagnosis and follow up are discussed with the patient and his family. The following procedure was performed by me. Old suprapubic catheter was removed and a new one was placed without difficulty with good drainage of urine. No consultations and he tolerated the procedure well. Differential Diagnosis Differential diagnosis: Likely urinary tract infection and other (plugged Ferro catheter) Lab Data Labs: Lab Results 11/08/23 11/08/23 Range/Units 14:14 16:05 WBC 5.6 (4.0-11.0) 10^3/uL RBC 4.50 L (4.70-6.10) 10^6/uL Hgb 12.4 L (14.0-18.0) g/dL Hct 40.9 L (42.0-54.0) % MCV 90.9 (80.0-94.0) fL MCH 27.6 (25.9-34.0) pg MCHC 30.3 (29.9-35.2) g/dL RDW 15.6 H (11.0-15.0) % Plt Count 178 (150-450) 10^3/uL MPV 13.0 (9.5-13.5) fL Neut % (Auto) 62.2 (43.0-75.0) % Lymph % (Auto) 26.8 (20.5-60.0) % [place] % (Auto) 7.6 (1.7-12.0) % Eos % (Auto) 2.7 (0.9-7.0) % Baso % (Auto) 0.5 (0.2-2.0) % Neut # (Auto) 3.5 (1.4-6.5) 10^3/uL Lymph # (Auto) 1.5 (1.2-3.8) 10^3/uL [place] # (Auto) 0.4 (0.3-0.8) 10^3/uL Eos # (Auto) 0.2 (0.0-0.7) 10^3/uL Baso # (Auto) 0.0 (0.0-0.1) 10^3/uL Abs Immat Gran (auto) 0.01 (0.00-0.03) 10^3/uL Imm/Tot Granulo (auto) 0.2 (0.0-0.5) % Sodium 145 (136-145) mmol/L Potassium 4.3 (3.5-5.1) mmol/L Chloride 111 H (98-107) mmol/L Carbon Dioxide 28.9 (21.0-32.0) mmol/L Anion Gap 9.4 BUN 22.0 H (7.0-18.0) mg/dL Creatinine 1.12 (0.70-1.30) mg/dL Est GFR ( Amer) >60 (>=60) Est GFR (Non-Af Amer) >60 (>=60) BUN/Creatinine Ratio 19.6 Glucose 96 (74-106) mg/dL Calcium 8.9 (8.5-10.1) mg/dL Urine Color Lt. yellow (YELLOW) Urine Clarity Cloudy A (CLEAR) Urine pH 8.5 (5.0-9.0) Ur Specific [place] 1.015 (1.005-1.025) Urine Protein 100 A (NEG/TRACE) mg/dL Urine Glucose (UA) Negative (NEGATIVE) mg/dL Urine Ketones Trace A (NEGATIVE) mg/dL Urine Occult Blood Large A (NEGATIVE) Urine Nitrite Positive A (NEGATIVE) Urine Bilirubin Negative (NEGATIVE) Urine Urobilinogen 1.0 (0.2-1.0) EU/dL Ur Leukocyte Esterase Large A (NEGATIVE) Urine RBC 20-50 A (0-2) #/HPF Urine WBC 20-50 A (NONE SEEN) #/HPF Ur Squamous Epith Cells Rare (NONE/RARE) #/LPF Urine Crystals None seen (None Seen) #/HPF Urine Bacteria Large A (NONE SEEN) #/HPF Urine Casts None seen (NONE SEEN) #/LPF Urine Mucus None seen (NONE SEEN) Discharge Plan Discharge Chief Complaint: Urogenital-Male Clinical Impression: Complication, blocked Ferro catheter Patient Disposition: Home, Self-Care Time of Disposition Decision: 17:00 Condition: Good Mode of Transportation: Private Vehicle Prescriptions / Home Meds: New cephalexin 500 mg capsule 500 mg PO TID 7 Days Qty: 21 0RF No Action carbidopa-levodopa 25-100 mg tablet 2 tab PO BID Patient Comments: 2 TABS AT6AM AND 10 AM; 1 TAB AT 2PM AND 6 PM benzonatate 100 mg capsule 100 mg PO DAILY atorvastatin 10 mg tablet 10 mg PO DAILY acarbose 25 mg tablet 25 mg PO TID diclofenac sodium 75 mg tablet,delayed release (DR/EC) 75 mg PO BID montelukast 10 mg tablet 10 mg PO .QHS fludrocortisone 0.1 mg tablet 0.2 mg PO .QD pregabalin 300 mg capsule 300 mg PO BID tolterodine 4 mg capsule,extended release 24hr 4 mg PO DAILY midodrine 5 mg tablet 15 mg PO DAILY topiramate 100 mg tablet 100 mg PO BID docusate sodium 100 mg capsule 100 mg PO DAILY duloxetine 60 mg capsule,delayed release(DR/EC) 60 mg PO DAILY Patient Comments: TAKES WITH VENLACHAN GIRON/DR Charlee ARIAS ezetimibe 10 mg tablet 10 mg PO DAILY ondansetron HCl 4 mg tablet 4 mg PO DAILY PRN (Reason: nausea and vomiting) potassium citrate 15 mEq tablet extended release 15 meq PO TID carbidopa-levodopa 25-100 mg tablet extended release 1 tab PO QID venlafaxine [Effexor XR] 75 mg capsule,extended release 24hr 75 mg PO DAILY Patient Comments: TAKES WITH DULOXETINE PER BREE/DR Charlee ARIAS gentamicin in NaCl (iso-osm) 100 mg/100 mL piggyback 500 mg IV Q24H 3 Days Instructions: Ferro Catheter Placement and Care (ED) Stand Alone Forms: Portal Instructions Referrals: ELLEN ARIAS [Primary Care Provider] - 1 week
[2023-11-08 14:26] LABS: Basophils Percent Auto 0.5 % (0.2-2.0); Eosinophils Absolute Auto 0.2 10^3/uL (0.0-0.7); Eosinophils Percent Auto 2.7 % (0.9-7.0); Hematocrit 40.9 % (42.0-54.0); Hemoglobin 12.4 g/dL (14.0-18.0); Immature Granulocytes Abs Auto 0.01 10^3/uL (0.00-0.03); Immature Granulocytes Pct Auto 0.2 % (0.0-0.5); Lymphocytes Absolute Auto 1.5 10^3/uL (1.2-3.8); Lymphocytes Percent Auto 26.8 % (20.5-60.0); Mean Corpuscular HGB Conc 30.3 g/dL (29.9-35.2); Mean Corpuscular Hemoglobin 27.6 pg (25.9-34.0); Mean Corpuscular Volume 90.9 fL (80.0-94.0); Monocytes Absolute Auto 0.4 10^3/uL (0.3-0.8); Monocytes Percent Auto 7.6 % (1.7-12.0); Neutrophils Absolute Auto 3.5 10^3/uL (1.4-6.5); Neutrophils Percent Auto 62.2 % (43.0-75.0); Platelet Count 178 10^3/uL (150-450); Red Cell Distribution Width 15.6 % (11.0-15.0); White Blood Count 5.6 10^3/uL (4.0-11.0)
[2023-11-08 14:35] LABS: Anion Gap 9.4; BUN Creatinine Ratio 19.6; Calcium 8.9 mg/dL (8.5-10.1); Carbon Dioxide 28.9 mmol/L (21.0-32.0); Chloride 111 mmol/L (98-107); Estimated GFR (African America >60 (>=60); Estimated GFR (Non-African Ame >60 (>=60); Glucose 96 mg/dL (74-106); Potassium 4.3 mmol/L (3.5-5.1); Sodium 145 mmol/L (136-145)
[2023-11-08] MEDS: MORPHINE SULFATE 4 MG/ML VIAL IV (16:03)
[2023-11-08] MEDS: ONDANSETRON PF 4 MG/2 ML VIAL IV (16:20)
--- NOTE | 2023-11-08 16:27 | PC.NURSE ---
At bedside with to assist with placement of suprapubic catheter. 24 albanian with 5cc of saline in balloon.
[2023-11-08 16:29] LABS: Bilirubin Urine NEGATIVE (NEGATIVE); Blood Urine LARGE (NEGATIVE); Clarity Urine CLOUDY (CLEAR); Color Urine LT. YELLOW (YELLOW); Glucose Urine UA NEGATIVE (NEGATIVE); Ketones Urine TRACE mg/dL (NEGATIVE); Leukocyte Esterase Urine LARGE (NEGATIVE); Nitrite Urine POSITIVE (NEGATIVE); Protein Urine 100 mg/dL (NEG/TRACE); Specific Gravity Urine 1.015 (1.005-1.025); pH Urine 8.5 (5.0-9.0)
[2023-11-08 16:48] LABS: Bacteria Urine LARGE #/HPF (NONE SEEN); Crystals Seen? None Seen #/HPF (None Seen); Mucus Urine NONE SEEN (NONE SEEN); RBC Urine 20-50 #/HPF (0-2); Squamous Epithelial Cell Urine RARE #/LPF (NONE/RARE); WBC Urine 20-50 #/HPF (NONE SEEN)
[2023-11-08 16:49] LABS: Cast Seen? NONE SEEN #/LPF (NONE SEEN)
[2023-11-08] MEDS: CEFTRIAXONE 1,000 MG in 0.9 % SODIUM CHLORIDE 50 ML 100 MG IV (17:09)
[2023-11-08 18:06] VITALS: BP 146/74; PULSE 86; RESP 16; O2SAT 97
--- NOTE | 2023-11-15 08:56 | PC.NURSE ---
11/15/23 [id number] pt ua c+s reviewed by Susie CHENEY on 11/14/23 need to stop Keflex and start Bactrim 1 by mouth BID times 7 days, called pt no answer left message for return call. Davion Roe RN
== END 2023-11-08 18:16 | disposition home or self-care (01) ==
PROVIDERS: Emergency Provider Emergency Medicine; PCP Family Medicine
DX: T83.090A Other mechanical complication of cystostomy catheter, initial encounter (principal); Z79.899 Other long term (current) drug therapy; G20.A1 Parkinson's disease without dyskinesia, without mention of fluctuations; E11.42 Type 2 diabetes mellitus with diabetic polyneuropathy; Z87.440 Personal history of urinary (tract) infections; N31.9 Neuromuscular dysfunction of bladder, unspecified; Z85.01 Personal history of malignant neoplasm of esophagus; Z85.819 Personal history of malignant neoplasm of unspecified site of lip, oral cavity, and pharynx; K21.9 Gastro-esophageal reflux disease without esophagitis; J44.9 Chronic obstructive pulmonary disease, unspecified; Z86.16 Personal history of COVID-19; Z87.01 Personal history of pneumonia (recurrent); Z87.442 Personal history of urinary calculi; Z98.890 Other specified postprocedural states; Z96.89 Presence of other specified functional implants; Z96.652 Presence of left artificial knee joint; Z96.612 Presence of left artificial shoulder joint; Z98.84 Bariatric surgery status; Z87.891 Personal history of nicotine dependence
CPT/HCPCS: 36415; 51702; 80048; 81001; 85025; 87086; 87150; 87186; 96365; 96375; 99284; J0696; J2270; J2405

== ENCOUNTER 2024-01-06 12:29 | Outpatient (RCR) | payer MEDICARE, OTHER, SELFPAY | END 2024-04-14 16:22 | disposition home or self-care (01) | LOC: ST 12:29 | PROVIDERS: PCP Family Medicine; Visit Provider Nurse Practitioner | DX: G20.A1 Parkinson's disease without dyskinesia, without mention of fluctuations (principal); R47.1 Dysarthria and anarthria | CPT/HCPCS: 92507; 92523; 92526 ==

== ENCOUNTER 2024-01-06 12:31 | Outpatient (RCR) | payer MEDICARE, OTHER, SELFPAY | END 2024-03-29 17:06 | disposition home or self-care (01) | LOC: PT 12:31 | PROVIDERS: PCP Family Medicine; Visit Provider Nurse Practitioner | DX: G20.A1 Parkinson's disease without dyskinesia, without mention of fluctuations (principal) | CPT/HCPCS: 97110; 97162; 97530 ==

== ENCOUNTER 2024-01-06 19:36 | Emergency (ER) | payer MEDICARE, OTHER, SELFPAY ==
[2024-01-06 19:40] VITALS: PULSE 71; RESP 18; TEMP 36.4; O2SAT 94
[2024-01-06 19:46] VITALS: BP 158/107; PULSE 72; RESP 18; TEMP 36.4; O2SAT 96
--- NOTE | 2024-01-06 19:57 | ED_ITS ---
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 Retana office presents for evaluation of a plugged suprapubic catheter. The patient states he has not had any urine output from the catheter since this morning. There is thick dark sediment in the tubing. He also states he feels chilled and thinks he has a fever and a urinary tract infection. He's complains of nausea and generalized lower abdominal pain and pressure in his abdomen. He has not been drinking today because he felt that drinking would cause him to make you have more urine and it would not come out and cause more pain. He denies any nasal congestion and cough, shortness of breath or chest pain. Related Data Home Medications ?Medication ?Instructions ?Recorded ?Confirmed acarbose 25 mg tablet 25 mg PO TID 08/20/23 11/08/23 atorvastatin 10 mg tablet 10 mg PO DAILY 08/20/23 11/08/23 benzonatate 100 mg capsule 100 mg PO DAILY 08/20/23 11/08/23 carbidopa 25 mg-levodopa 100 mg 2 tab PO BID 08/20/23 08/21/23 tablet diclofenac sodium 75 mg 75 mg PO BID 08/20/23 11/08/23 tablet,delayed release docusate sodium 100 mg capsule 100 mg PO DAILY 08/20/23 11/08/23 duloxetine 60 mg capsule,delayed 60 mg PO DAILY 08/20/23 11/08/23 release ezetimibe 10 mg tablet 10 mg PO DAILY 08/20/23 11/08/23 fludrocortisone 0.1 mg tablet 0.2 mg PO .QD 08/20/23 11/08/23 midodrine 5 mg tablet 15 mg PO DAILY 08/20/23 11/08/23 montelukast 10 mg tablet 10 mg PO .QHS 08/20/23 11/08/23 ondansetron HCl 4 mg tablet 4 mg PO DAILY PRN nausea and 08/20/23 11/08/23 vomiting pregabalin 300 mg capsule 300 mg PO BID 08/20/23 11/08/23 tolterodine 4 mg capsule,extended 4 mg PO DAILY 08/20/23 11/08/23 release 24 hr topiramate 100 mg tablet 100 mg PO BID 08/20/23 11/08/23 carbidopa ER 25 mg-levodopa 100 mg 1 tab PO QID 08/21/23 11/08/23 tablet,extended release potassium citrate 15 mEq (1,620 15 meq PO TID 08/21/23 11/08/23 mg) tablet,extended release venlafaxine 75 mg capsule,extended 75 mg PO DAILY 08/21/23 11/08/23 release 24 hr (Effexor XR) Previous Rx's ?Medication ?Instructions ?Recorded gentamicin 100 mg/100 mL in sodium 500 mg (500 mL) IV Q24H UTI 3 days 08/22/23 chloride(iso) intravenous piggyback cephalexin 500 mg capsule 500 mg PO TID 7 days #21 caps 11/08/23 Allergies Allergy/AdvReac Type Severity Reaction Status Date / Time clonazepam Allergy Severe Difficulty Verified 01/06/24 19:48 Breathing levofloxacin [From Levaquin] Allergy Severe Difficulty Verified 01/06/24 19:48 Breathing moxifloxacin Allergy Intermediate Hives Verified 01/06/24 19:48 celecoxib [From Celebrex] Allergy Mild Hives Verified 01/06/24 19:48 erythromycin base Allergy Mild Gastrointestinal Verified 01/06/24 19:48 Upset Review of Systems ROS Status of ROS 10 or more systems reviewed and unremark able except as noted in history and below [facility] Medical History (Updated 01/06/24 @ 22:06 by Kathi Enrique MD) UTI (urinary tract infection) ?N39.0 - Urinary tract infection, site not specified (ICD-10) 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N31.9 - Neuromuscular dysfunction of bladder, unspecified (ICD-10) Neuropathy ?G62.9 - Polyneuropathy, unspecified (ICD-10) Tonsillectomy planned FH: bilateral hip replacements ?Z82.69 - Family history of other diseases of the musculoskeletal system and connective tissue (ICD-10) Enlarged prostate ?N40.0 - Benign prostatic hyperplasia without lower urinary tract symptoms (ICD-10) 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, unspecified (ICD-10) 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 - Malignant (primary) neoplasm, unspecified (ICD-10) Esophageal cancer ?C15.9 - Malignant neoplasm of esophagus, unspecified (ICD-10) Barretts esophagus ?K22.70 - Rust's esophagus without dysplasia (ICD-10) GERD without esophagitis ?K21.9 - Gastro-esophageal reflux disease without esophagitis (ICD-10) Asthma ?J45.909 - Unspecified asthma, uncomplicated (ICD-10) COPD (chronic obstructive pulmonary disease) ?J44.9 - Chronic obstructive pulmonary disease, unspecified (ICD-10) Pneumonia ?J18.9 - Pneumonia, unspecified organism (ICD-10) COVID-19 ?U07.1 - COVID-19 (ICD-10) Kidney stones ?N20.0 - Calculus of kidney (ICD-10) Bladder stones ?N21.0 - Calculus in bladder (ICD-10) Type 2 diabetes mellitus ?E11.9 - Type 2 diabetes mellitus without complications (ICD-10) Hypotension ?I95.9 - Hypotension, unspecified (ICD-10) Surgical History (Updated 08/06/23 @ 08:15 by Jorge Contreras) H/O cystoscopy ?Z98.890 - Other specified postprocedural states (ICD-10) S/P insertion of spinal cord stimulator ?Z96.89 - Presence of other specified functional implants (ICD-10) Status post right rotator cuff repair ?Z98.890 - Other specified postprocedural states (ICD-10) H/O hand surgery ?Z98.890 - Other specified postprocedural states (ICD-10) History of left knee replacement ?Z96.652 - Presence of left artificial knee joint (ICD-10) History of left shoulder replacement ?Z96.612 - Presence of left artificial shoulder joint (ICD-10) Previous back surgery ?Z98.890 - Other specified postprocedural states (ICD-10) H/O gastric bypass ?Z98.84 - Bariatric surgery status (ICD-10) Family History (Updated 08/20/23 @ 20:33 by Barbara Mauro RN) Mother Family history of hypertension Family history of diabetes mellitus Family history of COPD (chronic obstructive pulmonary disease) Brother Family history of cancer Other Family history of CHF (congestive heart failure) Social History (Updated 08/20/23 @ 20:36 by Barbara Mauro RN) Within the past year, how often did you have a drink containing alcohol: never Within the past year, how often did you have six or more drinks on one occasion: never Score interpretation: A score less than 4 is consistent with normal alcohol consumption. Smoking status: Former smoker Highest level of school completed/degree received: some college, no degree Are you now , , , , never or living with a partner: In a typical week, how many times do you talk on the telephone with family, friends, or neighbors: 3 or more times per week How often do you get together with friends or relatives: 3 or more times per week Little interest or pleasure in doing things: several days Feeling down, depressed, or hopeless: several days Feel stressed/tense/nervous/anxious/difficulty sleeping: to some extent Do you think of yourself as: straight/heterosexual Gender Identity: male Exam Narrative Exam Narrative: Nurses note and vital signs reviewed and patient is not hypoxic. The pressures noted to be elevated at 158/107 General: Nontoxic but mildly ill-appearing flushed overweight male, no respiratory distress, no active vomiting Skin: Warm, dry, no pallor noted. There is no rash noted. Head: Normocephalic, atraumatic Eye: Normal conjunctiva, no drainage, EOMI. PERRL Ears, Nose, Mouth, and Throat: oral mucosa is dry Cardiovascular: Regular Rate and Rhythm S1S2, No murmurs rubs or gallops appreciated Respiratory: Patient is in no distress, no accessory muscle use, lungs are clear to auscultation, no wheezing, rales or rhonchi Back: non-tender, no CVA tenderness bilaterally to percussion. GI: Normal bowel sounds, Abdomen is softly distended. There is a suprapubic catheter in the midline of the lower abdomen. There is greater than 600 mL of urine retained in the bladder. The tubing for the catheter is brown and thick Musculoskeletal: The patient has no evidence of calf tenderness, no pitting edema, symmetrical pulses noted bilaterally Neurological: A&O x4, normal speech Psychiatric: Cooperative Constitutional Vital Signs, click to edit/add: Last Vital Signs Temp 97.6 F 01/06/24 19:46 Pulse 60 01/06/24 21:38 Resp 16 01/06/24 21:38 BP 156/87 H 01/06/24 21:38 Pulse Ox 94 L 01/06/24 21:38 O2 Del Method Room Air 01/06/24 19:46 Course Vital Signs Vital signs: Vital Signs Temperature 97.6 F 01/06/24 19:40 Pulse Rate 71 01/06/24 19:40 Respiratory Rate 18 01/06/24 19:40 Pulse Oximetry 94 L 01/06/24 19:40 Oxygen Delivery Method Room Air 01/06/24 19:40 Temperature 97.6 F 01/06/24 19:46 Pulse Rate 60 01/06/24 21:38 Respiratory Rate 16 01/06/24 21:38 Blood Pressure 156/87 H 01/06/24 21:38 Pulse Oximetry 94 L 01/06/24 21:38 Oxygen Delivery Method Room Air 01/06/24 19:46 MDM - Male Genitourinary MDM Narrative Medical decision making narrative: Procedure note, suprapubic Ferro catheter removal and replacement; the patient was placed in a supine position and the abdominal wall was cleaned with Betadine, the indwelling suprapubic Ferro catheter balloon was deflated and the catheter was gently removed. A large gush of urine was then expelled from the catheter site in the lower abdominal wall. After this had started to stop, a 24 [place] Ferro catheter was guided into the suprapubic site. Balloon was inflated with 30 mL of sterile saline. Fresh urine was then removed from the replaced suprapubic catheter and sent to the lab for culture. 63-year-old male with a history of a suprapubic Ferro catheter and kidney/bladder stones who is a patient of Dr. Retana and has had a suprapubic Ferro catheter for a period of time presents for evaluation of a blocked Ferro catheter since early this morning he has not had any urine output. The urine it is in the tubing is thick and dark. The patient also states that when urine does come out of his penis which it does from time to time when his catheter site is blocked he was experiencing some dysuria. His gave him a dose of Bactrim earlier today. He has not had a fever but appears flushed. He states he also feels nauseated and feels like he is coming down with an infection. He is not having any cough or upper respiratory symptoms and the etiology is likely related to his Ferro catheter and urine. An IV was placed and he was medicated with 1 mg of IV Dilaudid for comfort and IV Zofran for nausea and 1 L of normal saline. When he was comfortable the indwelling suprapubic Ferro catheter was removed and replaced. Urine was then sent to the lab. Routine labs are reviewed. He has a normal white count and hemoglobin. Electrolytes are normal with the exception of a mildly low glucose at 70. Lactic acid is normal. Urine culture is pending.The patient states he has not had anything to eat or drink today because he was afraid he would make more urine that he was unable to expel. He drank a bottle of Gatorade and is resting comfortably. He was empirically treated with 1gm IV Rocephin for the dysuria pending culture results. He will be discharged home with Rx for Keflex. He requests something for pain and will be d ischarged home with 2 norco and a Rx for [place] and zofran to use as needed for ongoing nausea or pain. He will follow up with Dr retana. Lab Data Attestation: I reviewed the patient's lab results. Labs: Lab Results 01/06/24 Range/Units 20:08 WBC 5.3 (4.0-11.0) 10^3/uL RBC 4.42 L (4.70-6.10) 10^6/uL Hgb 12.6 L (14.0-18.0) g/dL Hct 40.9 L (42.0-54.0) % MCV 92.5 (80.0-94.0) fL MCH 28.5 (25.9-34.0) pg MCHC 30.8 (29.9-35.2) g/dL RDW 14.6 (11.0-15.0) % Plt Count 153 (150-450) 10^3/uL MPV 13.0 (9.5-13.5) fL Neut % (Auto) 41.9 L (43.0-75.0) % Lymph % (Auto) 41.9 (20.5-60.0) % [place] % (Auto) 12.0 (1.7-12.0) % Eos % (Auto) 3.2 (0.9-7.0) % Baso % (Auto) 0.6 (0.2-2.0) % Neut # (Auto) 2.2 (1.4-6.5) 10^3/uL Lymph # (Auto) 2.2 (1.2-3.8) 10^3/uL [place] # (Auto) 0.6 (0.3-0.8) 10^3/uL Eos # (Auto) 0.2 (0.0-0.7) 10^3/uL Baso # (Auto) 0.0 (0.0-0.1) 10^3/uL Abs Immat Gran (auto) 0.02 (0.00-0.03) 10^3/uL Imm/Tot Granulo (auto) 0.4 (0.0-0.5) % Sodium 140 (136-145) mmol/L Potassium 3.6 (3.5-5.1) mmol/L Chloride 106 (98-107) mmol/L Carbon Dioxide 24.7 (21.0-32.0) mmol/L Anion Gap 12.9 BUN 25.0 H (7.0-18.0) mg/dL Creatinine 1.14 (0.70-1.30) mg/dL Est GFR ( Amer) >60 (>=60) Est GFR (Non-Af Amer) >60 (>=60) BUN/Creatinine Ratio 21.9 Glucose 70 L (74-106) mg/dL Lactate 1.4 (0.4-2.0) mmol/L Calcium 8.5 (8.5-10.1) mg/dL Discharge Plan Discharge Stand Alone Forms: Portal Instructions Chief Complaint: Urogenital-Male Clinical Impression: Urinary tract infection, Complication, blocked Ferro catheter Patient Disposition: Home, Self-Care Time of Disposition Decision: 22:05 Condition: Good Prescriptions / Home Meds: No Action carbidopa-levodopa 25-100 mg tablet 2 tab PO BID Patient Comments: 2 TABS AT6AM AND 10 AM; 1 TAB AT 2PM AND 6 PM benzonatate 100 mg capsule 100 mg PO DAILY atorvastatin 10 mg tablet 10 mg PO DAILY acarbose 25 mg tablet 25 mg PO TID diclofenac sodium 75 mg tablet,delayed release (DR/EC) 75 mg PO BID montelukast 10 mg tablet 10 mg PO .QHS fludrocortisone 0.1 mg tablet 0.2 mg PO .QD pregabalin 300 mg capsule 300 mg PO BID tolterodine 4 mg capsule,extended release 24hr 4 mg PO DAILY midodrine 5 mg tablet 15 mg PO DAILY topiramate 100 mg tablet 100 mg PO BID docusate sodium 100 mg capsule 100 mg PO DAILY duloxetine 60 mg capsule,delayed release(DR/EC) 60 mg PO DAILY Patient Comments: TAKES WITH VENLAFAXINE BREE/DR Charlee ARIAS ezetimibe 10 mg tablet 10 mg PO DAILY ondansetron HCl 4 mg tablet 4 mg PO DAILY PRN (Reason: nausea and vomiting) potassium citrate 15 mEq tablet extended release 15 meq PO TID carbidopa-levodopa 25-100 mg tablet extended release 1 tab PO QID venlafaxine [Effexor XR] 75 mg capsule,extended release 24hr 75 mg PO DAILY Patient Comments: TAKES WITH DULOXETINE PER SONA ARIAS gentamicin in NaCl (iso-osm) 100 mg/100 mL piggyback 500 mg IV Q24H 3 Days cephalexin 500 mg capsule 500 mg PO TID 7 Days Qty: 21 0RF Print Language: Tongan Instructions: Ferro Catheter Placement and Care (ED), Catheter-associated Urinary Tract Infection (ED) Referrals: ELELN ARIAS [Primary Care Provider] - 1 week Ubaldo Retana MD [Physician] - As soon as possible
[2024-01-06] MEDS: ACETAMINOPHEN 325 MG TABLET 650 MG PO (20:18)
[2024-01-06] MEDS: ONDANSETRON PF 4 MG/2 ML VIAL IV (20:19)
[2024-01-06] MEDS: 0.9 % SODIUM CHLORIDE 1,000 ML 1000 ML IV (20:19)
[2024-01-06] MEDS: HYDROMORPHONE HCL 1 MG/ML CARTRIDGE IV (20:19)
[2024-01-06 20:21] LABS: Basophils Percent Auto 0.6 % (0.2-2.0); Eosinophils Absolute Auto 0.2 10^3/uL (0.0-0.7); Eosinophils Percent Auto 3.2 % (0.9-7.0); Hematocrit 40.9 % (42.0-54.0); Hemoglobin 12.6 g/dL (14.0-18.0); Immature Granulocytes Abs Auto 0.02 10^3/uL (0.00-0.03); Immature Granulocytes Pct Auto 0.4 % (0.0-0.5); Lymphocytes Absolute Auto 2.2 10^3/uL (1.2-3.8); Lymphocytes Percent Auto 41.9 % (20.5-60.0); Mean Corpuscular HGB Conc 30.8 g/dL (29.9-35.2); Mean Corpuscular Hemoglobin 28.5 pg (25.9-34.0); Mean Corpuscular Volume 92.5 fL (80.0-94.0); Monocytes Absolute Auto 0.6 10^3/uL (0.3-0.8); Neutrophils Absolute Auto 2.2 10^3/uL (1.4-6.5); Neutrophils Percent Auto 41.9 % (43.0-75.0); Platelet Count 153 10^3/uL (150-450); Red Blood Count 4.42 10^6/uL (4.70-6.10); Red Cell Distribution Width 14.6 % (11.0-15.0); White Blood Count 5.3 10^3/uL (4.0-11.0)
[2024-01-06 20:24] LABS: Anion Gap 12.9; BUN Creatinine Ratio 21.9; Calcium 8.5 mg/dL (8.5-10.1); Carbon Dioxide 24.7 mmol/L (21.0-32.0); Chloride 106 mmol/L (98-107); Estimated GFR (African America >60 (>=60); Estimated GFR (Non-African Ame >60 (>=60); Glucose 70 mg/dL (74-106); Potassium 3.6 mmol/L (3.5-5.1); Sodium 140 mmol/L (136-145)
[2024-01-06 20:32] LABS: Lactate/Lactic Acid 1.4 mmol/L (0.4-2.0)
--- NOTE | 2024-01-06 21:06 | PC.NURSE ---
patient emptied carrington bag around 8 this morning and has not had output since. Patient was bladderscaned for 620ml on arrival.24F Suprapubic carrington 30ml balloon was removed. Patient began to drain urine from suprapubic insertion site, Unable to calculate amount that drained prior to Reinsertion of 24F carrington with 30ml balloon by Dr. Enrique. Patient expresses relief verbally.
[2024-01-06] MEDS: CEFTRIAXONE 1,000 MG in 0.9 % SODIUM CHLORIDE 50 ML 100 MG IV (21:29)
[2024-01-06] MEDS: WATER FOR IRRIGATION, STERILE 1,000 ML IRRIG.SOLN 1000 ML IRR (21:30)
[2024-01-06 21:38] VITALS: BP 156/87; PULSE 60; RESP 16; O2SAT 94
[2024-01-06] MEDS: HYDROCODONE/ACET 5-325 MG TABLET 2 TAB PO (22:24)
--- NOTE | 2024-01-06 22:42 | PC.NURSE ---
output after carrington change
--- NOTE | 2024-01-09 09:11 | PC.NURSE ---
01/09/24 0911 called pt to update on + UTI reviewed urine ua c+s from 01/06/[address] morrison no answer left message for return call. NO to update pt and call in Keflex 500 mg po TID times 7 days, called into [facility] as ordered and is pt preferred pharmacy.
--- NOTE | 2024-01-10 10:29 | PC.NURSE ---
01/10/24 called and spoke to pt, pt was dc home with Keflex per dr hernandez educated to not slate picker prescription called into [facility] and just finish atb as ordered by dr hernandez. Davion Roe RN
== END 2024-01-06 22:45 | disposition home or self-care (01) ==
PROVIDERS: Emergency Provider Emergency Medicine; PCP Family Medicine
DX: T83.098A Other mechanical complication of other urinary catheter, initial encounter (principal); N39.0 Urinary tract infection, site not specified; E11.42 Type 2 diabetes mellitus with diabetic polyneuropathy; G20.A1 Parkinson's disease without dyskinesia, without mention of fluctuations; Z87.440 Personal history of urinary (tract) infections; N31.9 Neuromuscular dysfunction of bladder, unspecified; N40.0 Benign prostatic hyperplasia without lower urinary tract symptoms; C15.9 Malignant neoplasm of esophagus, unspecified; K21.9 Gastro-esophageal reflux disease without esophagitis; J44.9 Chronic obstructive pulmonary disease, unspecified; Z86.16 Personal history of COVID-19; Z87.442 Personal history of urinary calculi; Z96.652 Presence of left artificial knee joint; Z96.612 Presence of left artificial shoulder joint; Z98.84 Bariatric surgery status; Z87.891 Personal history of nicotine dependence; R33.9 Retention of urine, unspecified
CPT/HCPCS: 36415; 80048; 83605; 85025; 87086; 87150; 87186; 96365; 96375; 99285; J1170

== ENCOUNTER 2024-02-16 11:02 | Outpatient (OUT) | payer MEDICARE, OTHER, SELFPAY ==
--- NOTE | 2024-02-16 11:09 | FL_ITS ---
[address] [address] Patient Name: ALISIA CORREA MRN: [id number] date: 1960 Sex: M Assigned Patient Location: ND Current Patient Location: ND Accession/Order Number: [id number] Exam Date: 02/16/2024 11:26 Report Date: 02/16/2024 11:54 At the request of: LOREE LINDA Procedure: FL modified barium swallow EXAMINATION: FL modified barium swallow HISTORY: Dysphagia COMPARISON: No relevant comparison available. TECHNIQUE: A swallowing evaluation was performed with fluoroscopy in the usual manner. Standard level fluoroscopic mode of operation utilized. The procedure was recorded. Speech pathology was present FINDINGS: ORAL PHASE: Normal deglutition. PHARYNGEAL PHASE: Premature spillage over the vallecula with multiple food stuffs ASPIRATION: Moderate amount of penetration and aspiration with thin liquids by cup, this was not seen with small aliquots. This did not elicit a cough reflex STRUCTURE: Normal. No visible obstruction, stricture, or dilatation. OTHER: Negative. FL/FL modified barium swallow IMPRESSION: Penetration and aspiration with thin liquids by cup, no cough reflex. Electronically authenticated by: LIZETH MCDONOUGH Date: 02/16/2024 11:54
== END 2024-02-16 11:03 | disposition home or self-care (01) ==
LOC: FL 11:03
PROVIDERS: PCP Family Medicine; Visit Provider Nurse Practitioner
DX: R13.10 Dysphagia, unspecified (principal); G20.A1 Parkinson's disease without dyskinesia, without mention of fluctuations
CPT/HCPCS: 74230; 92611

== ENCOUNTER 2024-03-10 10:06 | Outpatient (OUT) | payer MEDICARE, OTHER, SELFPAY ==
--- NOTE | 2024-03-10 10:11 | VEIN_ITS ---
The [place] [address] Patient Name: ALISIA CORREA MRN: [id number] date: 1960 Sex: M Assigned Patient Location: Current Patient Location: Accession/Order Number: [id number] Exam Date: 03/10/2024 10:11 Report Date: 03/10/2024 13:01 At the request of: HEIDY HENDERSON Procedure: VC SEGMENTAL PRESSURES EXAM: BILATERAL LOWER EXTREMITY ARTERIAL SEGMENTAL PRESSURES HISTORY: I79.3 PVD Peripheral vascular disease Indication: Limb ischemia, gangrene COMPARISON: None FINDINGS: Segmental pressures presented as follows (right, left) in mmHg. Brachial: 111, 127. Upper thigh: 157, not obtained. Lower thigh: 163, 177. Calf: 150, 150. DPA: 123, 147. SUPERVISOR LEAD BURNING: 138, 147. 1st Toe: 77, 59 ANUJA: 1.09, 1.16 TBI: 0.61, 0.46 The ABIs are normal The TBI's are acceptable PVR waveforms: Right leg: Thigh: Normal Above knee: Delayed systolic upstroke Below knee: Delayed systolic upstroke Right ankle: Delayed systolic upstroke with blunting Left leg: Thigh: Unable to be obtained Above knee: Delayed systolic upstroke with wanting Below knee: Normal Right ankle: Delayed systolic upstroke with blunting VEIN/VC SEGMENTAL PRESSURES IMPRESSION: ABIs are within normal limits PVR waveforms suggest mild to moderate peripheral arterial disease TBI's consistent with moderate right and severe left arterial disease Electronically authenticated by: LIZETH MCDONOUGH Date: 03/10/2024 13:01
--- NOTE | 2024-03-10 10:29 | VEIN_ITS ---
The [address] [address] Patient Name: ALISIA CORREA MRN: [id number] date: 1960 Sex: M Assigned Patient Location: Current Patient Location: Accession/Order Number: [id number] Exam Date: 03/10/2024 10:05 Report Date: 03/10/2024 14:31 At the request of: HEIDY HENDERSON Procedure: VC US AAA SCREEN EXAM: VC US AAA SCREEN HISTORY: eNCOUNTER FOR SCREENING FOR AAA IN PATIENT 50 YEARS OF z13. COMPARISON: None. TECHNIQUE: Grayscale and color ultrasound FINDINGS: Proximal aorta: 3.0 x 3.1 cm Mid aorta: 2.3 x 2.4 cm Distal aorta: 2.3 x 2.2 cm Right common iliac artery: 2.0 x 2.0 cm Left common iliac artery: 1.5 x 1.5 cm Normal color Doppler flow throughout No significant atherosclerotic plaque. Scattered dilated collateral veins measuring up to 1.4 cm VEIN/VC US AAA SCREEN IMPRESSION: No aortic aneurysm Dilated collateral veins Electronically authenticated by: LIZETH MCDONOUGH Date: 03/10/2024 14:31
== END 2024-03-10 10:07 | disposition home or self-care (01) ==
LOC: VC 10:10
PROVIDERS: PCP Family Medicine; Visit Provider Student in an Organized Health Care Education/Training Program
DX: I70.263 Atherosclerosis of native arteries of extremities with gangrene, bilateral legs (principal); Z13.6 Encounter for screening for cardiovascular disorders; Z87.891 Personal history of nicotine dependence; I71.02 Dissection of abdominal aorta
CPT/HCPCS: 76706; 93923

== ENCOUNTER 2024-03-18 12:40 | Outpatient (OUT) | payer MEDICARE, OTHER, SELFPAY ==
--- NOTE | 2024-03-18 12:46 | XR_ITS ---
The [address] [address] Patient Name: ALISIA CORREA MRN: [id number] date: 1960 Sex: M Assigned Patient Location: US Current Patient Location: US Accession/Order Number: [id number] Exam Date: 03/18/2024 12:58 Report Date: 03/21/2024 08:17 At the request of: CLAIRE ROJAS Procedure: XR abdomen 1V EXAMINATION: XR abdomen 1V HISTORY: Kidney Stone N20.0 ; mid- lower abdominal pain COMPARISON: XR abdomen 08/14/2023 FINDINGS: KIDNEY/URETER - RIGHT: No visible renal or ureteral calcifications. KIDNEY/URETER - LEFT: No visible renal or ureteral calcifications. PELVIS: No visible ureteral calcifications. Any visible calcifications favor phleboliths. BOWEL: No abnormal dilation or deviation. BONES: Stable surgical changes of lumbar spine and bilateral hips. OTHER: Negative. No abnormal gaseous collections. XR/XR abdomen 1V IMPRESSION: 1. No appreciable urinary tract calculi. Evaluation is limited by large amount of overlying bowel content. Electronically authenticated by: DON MURRAY Date: 03/21/2024 08:17
--- NOTE | 2024-03-18 12:46 | US_ITS ---
The [address] [address] Patient Name: ALISIA CORREA MRN: [id number] date: 1960 Sex: M Assigned Patient Location: US Current Patient Location: Accession/Order Number: [id number] Exam Date: 03/18/2024 13:06 Report Date: 03/20/2024 13:18 At the request of: CLAIRE ROJAS Procedure: US renal BI US renal BI EXAM DATE: 03/18/2024 11:06 AM MDT COMPARISON: CT abdomen and pelvis with contrast dated 08/20/2023. INDICATION: Left leg x1 month. TECHNIQUE: Real-time ultrasound scanning of the kidneys and bladder was performed by the financial reporting consultant. Tools Administrator static images are submitted for review. FINDINGS: Right Kidney: The right kidney measures 10.2 x 6.5 x 4.9 cm and has a volume of 171 mL. Normal echogenicity. No hydronephrosis. Echogenic foci with associated twinkle artifact measures 0.3 x 0.3 x 0.3 cm and 0.3 x 0.4 x 0.5 cm. No obvious contour deforming lesion or solid renal mass. Left Kidney: The left kidney measures 10.8 x 4.9 x 4.5 cm and has a volume of 125 mL. Normal echogenicity. No hydronephrosis. Echogenic foci with associated artifact measures 0.3 x 0.2 x 0.2 cm and is 0.3 x 0.4 x 0.4 cm. No obvious contour deforming lesion or solid renal mass. Bladder: Bladder is collapsed with Ferro catheter in place. US/US renal BI IMPRESSION: 1. Bilateral nonobstructive nephrolithiasis. 2. No hydronephrosis. 3. Bladder is collapsed around a Ferro catheter. Electronically authenticated by: RON KHAN Date: 03/20/2024 13:18
== END 2024-03-18 12:41 | disposition home or self-care (01) ==
LOC: US 12:41
PROVIDERS: PCP Family Medicine; Visit Provider Nurse Practitioner Family
DX: N20.0 Calculus of kidney (principal)
CPT/HCPCS: 74018; 76775

== ENCOUNTER 2024-04-06 14:56 | Outpatient (RCR) | payer MEDICARE, OTHER, SELFPAY | END 2024-04-07 15:29 | disposition home or self-care (01) | LOC: PT 14:56 | PROVIDERS: PCP Family Medicine; Visit Provider Family Medicine | DX: G20.A1 Parkinson's disease without dyskinesia, without mention of fluctuations (principal) ==

== ENCOUNTER 2024-04-23 10:54 | Inpatient (IN) | payer MEDICARE, OTHER, SELFPAY ==
[2024-04-23] VITALS (73 sets, daily range): BP systolic 71–138; BP diastolic 44–89; PULSE 76–111; TEMP 36.6–37.5; O2SAT 79–99; BMI 30.8; BMI 33.3
[2024-04-23 11:18] LABS: Glucometer 122 mg/dL (74-106)
--- NOTE | 2024-04-23 11:20 | XR_ITS ---
The [address] [address] Patient Name: ALISIA CORREA MRN: [id number] date: 1960 Sex: M Assigned Patient Location: ER Current Patient Location: ER Accession/Order Number: [id number] Exam Date: 04/23/2024 12:08 Report Date: 04/23/2024 13:03 At the request of: MERCEDEZ CRAMER Procedure: XR chest 1V EXAM: XR chest 1V HISTORY: shortness of breath COMPARISON: Chest x-ray 01/30/[address] abdomen pelvis including the lower chest 08/20/2023 TECHNIQUE: AP upright chest x-ray. FINDINGS: Well-defined linear densities in the left lung base adjacent to elevated diaphragm. Most likely areas of atelectasis/scarring, previous infiltrate noted in this area. Left upper lung field and right lung appear clear. Normal heart size for technique. No pleural effusion or pneumothorax. XR/XR chest 1V IMPRESSION: Linear densities left lung base adjacent to elevated diaphragm probably areas of atelectasis/scarring. No definite acute or new abnormality seen. Elevated left diaphragm and obscures the extreme left lung base Electronically authenticated by: RADHA MCKNIGHT Date: 04/23/2024 13:03
--- NOTE | 2024-04-23 11:20 | ECG_ITS ---
The [facility] Test Date: 2024-04-23 Pat Name: ALISIA CORREA Department: Room: - Gender: Male [employer]: : 1960 Requested By: Jaden Crabtree Order Number: [id number] Reading MD: VIVIAN NUNEZ Measurements Intervals [place] Rate: 101 P: 38 CO: 146 QRS: -36 QRSD: 84 T: 23 QT: 366 QTc: 424 Interpretive Statements 1120 Sinus tachycardia 7200 Abnormal left axis deviation 8003 Consistent with pulmonary disease 9150 abnormal ECG Compared to ECG 08/20/2023 15:48:57 Left-axis deviation now present Sinus rhythm no longer present Electronically Signed On 04-24-2024 7:16:30 EDT by VIVIAN NUNEZ
--- NOTE | 2024-04-23 11:25 | ED.GENADUL1 ---
HPI HPI - General Adult General Chief complaint: Weakness Stated complaint: SYMPTOMS OF DEHYDRATION AND SOB Time Seen by Provider: 04/23/24 11:06 Source: patient and family Mode of arrival: Wheelchair Limitations: no limitations History of Present Illness HPI narrative: The patient have history of Parkinson mostly bound to wheelchair is coming to the ER with 24 hours history of shortness of breath, no cough or fever no chest pain no dizziness, the patient when presents to us he was in shortness of breath and with a pulse ox reaching 92% in room air. The patient does not you have oxygen at home and have no history of being oxygen dependent The patient mentioned that he have this chronic bilateral leg edema that is more increased on the right side over the last few days Related Data Home Medications ?Medication ?Instructions ?Recorded ?Confirmed acarbose 25 mg tablet 25 mg PO TID 08/20/23 04/23/24 atorvastatin 10 mg tablet 10 mg PO DAILY 08/20/23 04/23/24 carbidopa 25 mg-levodopa 100 mg 2 tab PO BID@0600,1000 08/20/23 04/23/24 tablet diclofenac sodium 75 mg 75 mg PO BID 08/20/23 04/23/24 tablet,delayed release docusate sodium 100 mg capsule 100 mg PO DAILY 08/20/23 04/23/24 ezetimibe 10 mg tablet 10 mg PO DAILY 08/20/23 04/23/24 midodrine 5 mg tablet 15 mg PO DAILY 08/20/23 11/08/23 montelukast 10 mg tablet 10 mg PO .QHS 08/20/23 04/23/24 pregabalin 300 mg capsule 300 mg PO BID 08/20/23 04/23/24 tolterodine 4 mg capsule,extended 4 mg PO DAILY 08/20/23 04/23/24 release 24 hr topiramate 100 mg tablet 100 mg PO BID 08/20/23 04/23/24 carbidopa ER 25 mg-levodopa 100 mg 1 tab PO QID 08/21/23 04/23/24 tablet,extended release potassium citrate 15 mEq (1,620 15 meq PO TID 08/21/23 04/23/24 mg) tablet,extended release carbidopa 25 mg-levodopa 100 mg 1 tab PO BID@1400,1800 04/23/24 04/23/24 tablet (Sinemet) ciclopirox 0.77 % topical cream 1 applic topical DAILY 04/23/24 04/23/24 tramadol 50 mg tablet 50 mg PO Q6H PRN pain 04/23/24 04/23/24 venlafaxine 150 mg 150 mg PO DAILY 04/23/24 04/23/24 capsule,extended release 24 hr Allergies Allergy/AdvReac Type Severity Reaction Status Date / Time clonazepam Allergy Severe Difficulty Verified 01/06/24 19:48 Breathing levofloxacin [From Levaquin] Allergy Severe Difficulty Verified 01/06/24 19:48 Breathing moxifloxacin Allergy Intermediate Hives Verified 01/06/24 19:48 celecoxib [From Celebrex] Allergy Mild Hives Verified 01/06/24 19:48 erythromycin base Allergy Mild Gastrointestinal Verified 01/06/24 19:48 Upset Opioid HPI Opioid Management Most Recent Opioid Data: Last Pain Scale 2 01/06/24 21:42 Last ED Pain Assessment 04/23/24 15:23 Review of Systems ROS Status of ROS 10 or more systems reviewed and unremarkable except as noted in history and below [facility] Medical History (Updated 04/23/24 @ 16:50 by Lilian Resendez MD) UTI (urinary tract infection) ?N39.0 - Urinary tract infection, site not specified (ICD-10) 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N31.9 - Neuromuscular dysfunction of bladder, unspecified (ICD-10) Neuropathy ?G62.9 - Polyneuropathy, unspecified (ICD-10) Tonsillectomy planned FH: bilateral hip replacements ?Z82.69 - Family history of other diseases of the musculoskeletal system and connective tissue (ICD-10) Enlarged prostate ?N40.0 - Benign prostatic hyperplasia without lower urinary tract symptoms (ICD-10) 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, unspecified (ICD-10) 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 - Malignant (primary) neoplasm, unspecified (ICD-10) Esophageal cancer ?C15.9 - Malignant neoplasm of esophagus, unspecified (ICD-10) Barretts esophagus ?K22.70 - Rust's esophagus without dysplasia (ICD-10) GERD without esophagitis ?K21.9 - Gastro-esophageal reflux disease without esophagitis (ICD-10) Asthma ?J45.909 - Unspecified asthma, uncomplicated (ICD-10) COPD (chronic obstructive pulmonary disease) ?J44.9 - Chronic obstructive pulmonary disease, unspecified (ICD-10) Pneumonia ?J18.9 - Pneumonia, unspecified organism (ICD-10) COVID-19 ?U07.1 - COVID-19 (ICD-10) Kidney stones ?N20.0 - Calculus of kidney (ICD-10) Bladder stones ?N21.0 - Calculus in bladder (ICD-10) Type 2 diabetes mellitus ?E11.9 - Type 2 diabetes mellitus without complications (ICD-10) Hypotension ?I95.9 - Hypotension, unspecified (ICD-10) Surgical History (Updated 08/06/23 @ 08:15 by Jorge Contreras) H/O cystoscopy ?Z98.890 - Other specified postprocedural states (ICD-10) S/P insertion of spinal cord stimulator ?Z96.89 - Presence of other specified functional implants (ICD-10) Status post right rotator cuff repair ?Z98.890 - Other specified postprocedural states (ICD-10) H/O hand surgery ?Z98.890 - Other specified postprocedural states (ICD-10) History of left knee replacement ?Z96.652 - Presence of left artificial knee joint (ICD-10) History of left shoulder replacement ?Z96.612 - Presence of left artificial shoulder joint (ICD-10) Previous back surgery ?Z98.890 - Other specified postprocedural states (ICD-10) H/O gastric bypass ?Z98.84 - Bariatric surgery status (ICD-10) Family History (Updated 08/20/23 @ 20:33 by Barbara Mauro RN) Mother Family history of hypertension Family history of diabetes mellitus Family history of COPD (chronic obstructive pulmonary disease) Brother Family history of cancer Other Family history of CHF (congestive heart failure) Social History (Updated 08/20/23 @ 20:36 by Barbara Mauro RN) Within the past year, how often did you have a drink containing alcohol: never Within the past year, how often did you have six or more drinks on one occasion: never Score interpretation: A score less than 4 is consistent with normal alcohol consumption. Smoking status: Former smoker Highest level of school completed/degree received: some college, no degree Are you now , , , , never or living with a partner: In a typical week, how many times do you talk on the telephone with family, friends, or neighbors: 3 or more times per week How often do you get together with friends or relatives: 3 or more times per week Little interest or pleasure in doing things: several days Feeling down, depressed, or hopeless: several days Feel stressed/tense/nervous/anxious/difficulty sleeping: to some extent Do you think of yourself as: straight/heterosexual Gender Identity: male Exam Narrative Exam Narrative: Nurses notes and vital signs reviewed and patient is not hypoxic. General: Well-appearing and in no apparent distress. Skin: Warm, dry, no pallor noted. No rash. Head: Normocephalic, atraumatic. Neck: Supple, non-tender. Eye: Pupils are equal, round and EOMI. No scleral icterus. Ears, Nose, Mouth, and Throat: TM are clear, no nasal mucosal hypertrophy. Oral mucosa is moist, no posterior oropharynx erythema, uvula is mid-line Cardiovascular: Regular Rate and Rhythm without murmur, gallop or rub. Respiratory: No accessory muscle use or respiratory distress. Lungs decreased air entry bilaterally no wheezes Chest Wall: no tenderness Back: No midline thoracic or lumbar vertebral tenderness. No CVA tenderness Musculoskeletal: normal ROM, the patient have bilateral leg edema mostly chronic with chronic skin changes there is a significant edema in the right side compared to the left side with no signs of redness hotness or any signs of infection, 1+ pitting edema to the level of the knee bilaterally GI: Abdomen is soft, non-distended. Normal bowel sounds. No masses appreciated. The patient have suprapubic catheter no signs of infection or inflammation and the catheter draining clear urine No tenderness to palpation. No rebound, guarding, or rigidity noted. Neurological: A&O x4. No cranial nerve dysfunction observed. No truncal ataxia. Moves all extremities. Sensation intact. Psychiatric: Cooperative and interactive. Normal mood and affect. Constitutional Vital Signs, click to edit/add: Last Vital Signs Temp 97.8 F 04/23/24 11:07 Pulse 103 H 04/23/24 16:46 Resp 26 H 04/23/24 16:46 BP 131/85 04/23/24 16:46 Pulse Ox 97 04/23/24 16:53 O2 Del Method Nasal Cannula 04/23/24 16:53 O2 Flow Rate 2 04/23/24 16:53 Course Vital Signs Vital signs: Vital Signs Pulse Rate 100 H 04/23/24 11:05 Respiratory Rate 16 04/23/24 11:05 Pulse Oximetry 96 04/23/24 11:05 Temperature 97.8 F 04/23/24 11:07 Pulse Rate 103 H 04/23/24 16:46 Respiratory Rate 26 H 04/23/24 16:46 Blood Pressure 131/85 04/23/24 16:46 Pulse Oximetry 97 04/23/24 16:53 Oxygen Delivery Method Nasal Cannula 04/23/24 16:53 Oxygen Delivery Flow Rate 2 04/23/24 16:53 Medical Decision Making [facility] Narrative Medical decision making narrative: EKG showing sinus tachycardia with a heart rate of [address] elevation or depression Upon arrival the patient was hypoxemic although his chest x-ray showed no acute pathology and even his CAT scan with PE workup was negative His main initially complaint was the fact that he is sweating and according to his that he have a history of having low oxygen whenever he gets sick The patient apparently CBC shows leukocytosis blood culture obtained he was covered with Zosyn for possible UTI The patient then had a urinalysis that showed UTI and culture was obtained The patient also had a CAT scan to rule out any PE which was negative after elevated D-dimer The patient had an episode during which he was showing possible hypoxemia although after placing the pulse ox on the his ear the patient oxygenation was within normal and with ABGs showing adequate result Patient was provided with IV fluids almost 2 L his BNP was elevated, and we were cautious provide him with fluids especially with a history of low blood pressure at the baseline according to the and the patient lactic acid responded from 3----1.5 Patient case was discussed with Dr. House and he agreed with above-mentioned plan Lab Data Labs: Lab Results 04/23/24 04/23/24 04/23/24 Range/Units 11:15 11:45 11:50 WBC 15.8 H (4.0-11.0) 10^3/uL RBC 3.91 L (4.70-6.10) 10^6/uL Hgb 11.1 L (14.0-18.0) g/dL Hct 36.3 L (42.0-54.0) % MCV 92.8 (80.0-94.0) fL MCH 28.4 (25.9-34.0) pg MCHC 30.6 (29.9-35.2) g/dL RDW 14.5 (11.0-15.0) % Plt Count 318 (150-450) 10^3/uL MPV 12.5 (9.5-13.5) fL Neut % (Auto) 82.5 H (43.0-75.0) % Lymph % (Auto) 15.3 L (20.5-60.0) % [place] % (Auto) 0.7 L (1.7-12.0) % Eos % (Auto) 0.3 L (0.9-7.0) % Baso % (Auto) 0.2 (0.2-2.0) % Neut # (Auto) 13.0 H (1.4-6.5) 10^3/uL Lymph # (Auto) 2.4 (1.2-3.8) 10^3/uL [place] # (Auto) 0.1 L (0.3-0.8) 10^3/uL Eos # (Auto) 0.1 (0.0-0.7) 10^3/uL Baso # (Auto) 0.0 (0.0-0.1) 10^3/uL Abs Immat Gran (auto) 0.16 H (0.00-0.03) 10^3/uL Imm/Tot Granulo (auto) 1.0 H (0.0-0.5) % PT 11.5 (9.0-11.6) sec INR 1.09 D-Dimer 1.33 H* (<=0.59) mg/L FEU Puncture Site ABG pH (7.350-7.450) ABG pCO2 (35.0-45.0) mmHg ABG pO2 (80.0-100.0) mmHg ABG HCO3 (22.0-26.0) mmol/L ABG O2 Saturation % ABG Base Excess (-2.0-2.0) mmol/L Raf Test (POSITIVE) O2 Liters/Min Sodium 145 (136-145) mmol/L Potassium 3.8 (3.5-5.1) mmol/L Chloride 108 H (98-107) mmol/L Carbon Dioxide 23.3 (21.0-32.0) mmol/L Anion Gap 17.5 BUN 47.0 H (7.0-18.0) mg/dL Creatinine 1.45 H (0.70-1.30) mg/dL Est GFR ( Amer) 59 L (>=60) Est GFR (Non-Af Amer) 49 L (>=60) BUN/Creatinine Ratio 32.4 Glucose 131 H (74-106) mg/dL Lactate 3.0 H* (0.4-2.0) mmol/L Calcium 8.8 (8.5-10.1) mg/dL Total Bilirubin 0.8 (0.2-1.0) mg/dL AST 15 (15-37) U/L ALT 9 L (16-63) U/L Alkaline Phosphatase 119 H (46-116) U/L Troponin I High Sens 8.3 (4.0-76.1) pg/mL NT-Pro-B Natriuret Pep 1488.0 H* (<=900.0) pg/mL Total Protein 7.2 (6.4-8.2) g/dL Albumin 2.6 L (3.4-5.0) g/dL Globulin 4.6 g/dL Albumin/Globulin Ratio 0.6 Urine Color (YELLOW) Urine Clarity (CLEAR) Urine pH (5.0-9.0) Ur Specific [place] (1.005-1.025) Urine Protein (NEG/TRACE) mg/dL Urine Glucose (UA) (NEGATIVE) mg/dL Urine Ketones (NEGATIVE) mg/dL Urine Occult Blood (NEGATIVE) Urine Nitrite (NEGATIVE) Urine Bilirubin (NEGATIVE) Urine Urobilinogen (0.2-1.0) EU/dL Ur Leukocyte Esterase (NEGATIVE) Urine RBC (0-2) #/HPF Urine WBC (NONE SEEN) #/HPF Ur Squamous Epith Cells (NONE/RARE) #/LPF Urine Crystals (None Seen) #/HPF Urine Bacteria (NONE SEEN) #/HPF Urine Casts (NONE SEEN) #/LPF Urine Mucus (NONE SEEN) Ur Culture Indicated? SARS-CoV-2 Ag (CV2AG) Negative (NEGATIVE) POC Glucose 122 H (74-106) mg/dL 04/23/24 04/23/24 04/23/24 Range/Units 13:01 14:57 16:37 WBC (4.0-11.0) 10^3/uL RBC (4.70-6.10) 10^6/uL Hgb (14.0-18.0) g/dL Hct (42.0-54.0) % MCV (80.0-94.0) fL MCH (25.9-34.0) pg MCHC (29.9-35.2) g/dL RDW (11.0-15.0) % Plt Count (150-450) 10^3/uL MPV (9.5-13.5) fL Neut % (Auto) (43.0-75.0) % Lymph % (Auto) (20.5-60.0) % [place] % (Auto) (1.7-12.0) % Eos % (Auto) (0.9-7.0) % Baso % (Auto) (0.2-2.0) % Neut # (Auto) (1.4-6.5) 10^3/uL Lymph # (Auto) (1.2-3.8) 10^3/uL [place] # (Auto) (0.3-0.8) 10^3/uL Eos # (Auto) (0.0-0.7) 10^3/uL Baso # (Auto) (0.0-0.1) 10^3/uL Abs Immat Gran (auto) (0.00-0.03) 10^3/uL Imm/Tot Granulo (auto) (0.0-0.5) % PT (9.0-11.6) sec INR D-Dimer (<=0.59) mg/L FEU Puncture Site Rr ABG pH 7.344 L (7.350-7.450) ABG pCO2 35.7 (35.0-45.0) mmHg ABG pO2 307.0 H (80.0-100.0) mmHg ABG HCO3 19.4 L (22.0-26.0) mmol/L ABG O2 Saturation >100.0 % ABG Base Excess -6.3 L (-2.0-2.0) mmol/L Raf Test Positive (POSITIVE) O2 Liters/Min 15 Sodium (136-145) mmol/L Potassium (3.5-5.1) mmol/L Chloride (98-107) mmol/L Carbon Dioxide (21.0-32.0) mmol/L Anion Gap BUN (7.0-18.0) mg/dL Creatinine (0.70-1.30) mg/dL Est GFR ( Amer) (>=60) Est GFR (Non-Af Amer) (>=60) BUN/Creatinine Ratio Glucose (74-106) mg/dL Lactate 1.5 (0.4-2.0) mmol/L Calcium (8.5-10.1) mg/dL Total Bilirubin (0.2-1.0) mg/dL AST (15-37) U/L ALT (16-63) U/L Alkaline Phosphatase (46-116) U/L Troponin I High Sens (4.0-76.1) pg/mL NT-Pro-B Natriuret Pep (<=900.0) pg/mL Total Protein (6.4-8.2) g/dL Albumin (3.4-5.0) g/dL Globulin g/dL Albumin/Globulin Ratio Urine Color Yellow (YELLOW) Urine Clarity Cloudy A (CLEAR) Urine pH 7.5 (5.0-9.0) Ur Specific [place] 1.020 (1.005-1.025) Urine Protein 100 A (NEG/TRACE) mg/dL Urine Glucose (UA) Negative (NEGATIVE) mg/dL Urine Ketones Negative (NEGATIVE) mg/dL Urine Occult Blood Small A (NEGATIVE) Urine Nitrite Positive A (NEGATIVE) Urine Bilirubin Negative (NEGATIVE) Urine Urobilinogen 0.2 (0.2-1.0) EU/dL Ur Leukocyte Esterase Moderate A (NEGATIVE) Urine RBC 10-20 A (0-2) #/HPF Urine WBC 20-50 A (NONE SEEN) #/HPF Ur Squamous Epith Cells Few A (NONE/RARE) #/LPF Urine Crystals None seen (None Seen) #/HPF Urine Bacteria Moderate A (NONE SEEN) #/HPF Urine Casts None seen (NONE SEEN) #/LPF Urine Mucus Trace A (NONE SEEN) Ur Culture Indicated? Yes SARS-CoV-2 Ag (CV2AG) (NEGATIVE) POC Glucose (74-106) mg/dL Discharge Plan Discharge Chief Complaint: Weakness Clinical Impression: Breath shortness Urinary tract infection Qualifiers: Urinary tract infection type: catheter-associated UTI Indwelling urinary catheter type: unspecified Encounter type: initial encounter Qualified Code(s): T83.511A - Infection and inflammatory reaction due to indwelling urethral catheter, initial encounter Sepsis Qualifiers: Sepsis type: sepsis due to unspecified organism Sepsis acute organ dysfunction status: with acute organ dysfunction Severe sepsis acute organ dysfunction type: unspecified Severe sepsis shock status: without septic shock Qualified Code(s): A41.9 - Sepsis, unspecified organism Patient Disposition: Admitted As Inpatient Time of Disposition Decision: 16:48
--- OUTSIDE RECORDS SUMMARY | 2024-04-23 11:25 | XMS_ITS ---
Patient Summarization (C-CDA 2.1 CCD) Created on: April 23, 2024 FREDYROBERTOALISIA : 1960 Sex: Male Author Organization Sample organization Care Team Providers Care Cable Layer Name Role Phone RICCHETTI, SERGEY T Unavailable Unavailable RICCHETTI, SERGEY T Unavailable Unavailable RICCHETTI, SERGEY T Unavailable Unavailable RICCHETTI, SERGEY T Unavailable Unavailable REAGAN BLAIR Unavailable Unavailable SWATI SENIOR M Unavailable Unavailable SWATI SENIOR M Unavailable Unavailable LUISITO RIVERA Unavailable Unavailable [...] Attending Unavailable ELLEN CRABTREE Primary Care Unavailable IVANA, EVELINA A Consulting Unavailable RANDA, SASIKALA T Consulting UnavailBALA Brito Consulting Unavailable TUCKER ROBBINS Consulting Unavailable AKSHAT, SELVON F Referring Unavailable ELLEN CRABTREE Primary Care Unavailable AKSHAT, SELVON F Referring Unavailable ELLEN CRABTREE R Primary Care Unavailable Barbie Crabtreett Unavailable Yifan Gama Unavailable Ellen Crabtree Primary Care Provider ELLEN CRABTREE Primary Care Unavailable KANG LOYA Admitting Unavailable PB REDMOND Attending Unavailable KANG LOYA Admitting Unavailable MELINDA NICK Attending Unavailable OUMOU ALONZO Referring Unavailable KUNS, ELLEN MCCOY Primary Care Unavailable ELLEN CRABTREE Primary Care Physician [phone] MISC, DR MYERS Consulting Unavailable MISC, DR MYERS Admitting Unavailable KUNS, DR HUGHES Primary Care Unavailable MISC, DR MYERS Attending Unavailable TREVOR, DR DON Hinkle Consulting Unavailable LEYDA ., MICHELL Attending Unavailable LEYDA ., MICHELL Consulting Unavailable LEYDA ., MICHELL Admitting Unavailable KUNS, DR HUGHES Primary Care Unavailable CHE PANDYA Consulting Unavailable IBARRA ., DR PARRA Admitting Unavailable KUNS, DR HUGHES Primary Care Unavailable IBARRA ., DR PARRA Attending Unavailable IBARRA ., DR PARRA Consulting Unavailable NEWATIA, SHARRON Consulting Unavailable IBARRA ., DR PARRA Admitting Unavailable KUNS, DR HUGHES Primary Care Unavailable IBARRA ., DR PARRA Attending Unavailable IBARRA ., DR PARRA Consulting Unavailable TRES, MOIZ Consulting Unavailable ELLI II, WICHO Consulting Unavailable HOY ., DR PEACE Attending Unavailable HOY ., DR PEACE Consulting Unavailable HOY ., DR PEACE Admitting Unavailable KUNS, DR HUGHES Primary Care Unavailable BERLIN, DR LIZETH Momin Consulting Unavailable NADERER, DR KARLEY Crowe Consulting Unavailable CHRISTIAN, EN Consulting Unavailable DIAB ., MERCEDEZ Consulting Unavailable Kuns DOEllen R Primary Care Provider Kuns, DO Ellen Primary Care Provider Ly, DO Bernice Cox Attending Provider Bernice Shrestha Attending Unavailable Bernice Shrestha Admitting Unavailable Kuns, Ellen Primary Care Unavailable HEIDY MARIN F Attending Unavailable KUNS, ELLEN R Referring Unavailable KUNS, ELLEN R Primary Care Unavailable KUNS, ELLEN R Referring Unavailable KUNS, ELLEN R Primary Care Unavailable KUNS, ELLEN R Referring Unavailable KUNS, ELLEN R Primary Care Unavailable BEATRIZHEIDY MONAHAN F Attending Unavailable KUNS, ELLEN R Referring Unavailable KUNS, ELLEN R Primary Care Unavailable LOREE LINDA Attending Unavailable KUNS, ELLEN R Referring Unavailable KUNS, ELLEN R Primary Care Unavailable Fidel IBARRA Attending Unavailable Fidel IBARRA Admitting Unavailable Fidel IBARRA Attending Unavailable Fidel IBARRA Attending Unavailable Orzech, Pippa X Attending Unavailable IBARRA, Fidel R Attending Unavailable IBARRA, Fidel R Attending Unavailable IBARRA, Fidel R Admitting Unavailable IBARRA, Fidel R Attending Unavailable IBARRA, Fidel R Attending Unavailable IBARRA, Fidel R Admitting Unavailable IBARRA, Fidel R Attending Unavailable Orzech, Pippa X Admitting Unavailable Orzech, Pippa X Attending Unavailable IBARRA, Fidel R Admitting Unavailable IBARRA, Fidel R Attending Unavailable Orzech, Pippa X Attending Unavailable IBARRA, Fidel R Attending Unavailable IBARRA, Fidel R Attending Unavailable IBARRA, Fidel R Attending Unavailable IBARRA, Fidel R Attending Unavailable IBARRA, Fidel R Attending Unavailable RODRILYN Attending Unavailable IBARRA, Fidel R Attending Unavailable IBARRA, Fidel R Attending Unavailable Orzech, Pippa X Attending Unavailable IBARRA, Fidel R Admitting Unavailable IBARRA, Fidel R Attending Unavailable Allergies Allergy Classification Reported Allergen(s) Allergy Type Date of Onset Reaction(s) Facility (20 sources) celecoxib; Translations: [CELECOXIB] Drug Allergy 06-04-20 17 Rash, Hives, GI Upset, Weal (disorder) [facility] Repository (20 sources) clonazePAM; Translations: [CLONAZEPAM] Drug Allergy 06-04-20 17 Itching, Shortness Of Breath, Dyspnea (finding) [facility] Repository (20 sources) levoFLOXacin; Translations: [LEVOFLOXACIN] Drug Allergy 01-30-20 10 Hives, Shortness Of Breath, Dyspnea (finding) [facility] Repository (9 sources) moxifloxacin; Translations: [MOXIFLOXACIN HCL] Drug Allergy 07-20-20 06 Rash, Hives, Itching, Shortness of Breath [facility] Repository (20 sources) ERYTHROMYCIN BASE; Translations: [ERYTHROMYCIN BASE] Propensity to adverse reactions to drug (disorder) 03-06-20 04 Hives, Shortness of Breath [facility] Repository (3 sources) celecoxib; Translations: [CeleBREX] Drug Allergy 06-25-[address] [facility] Repository (1 source) erythromycin Drug Allergy 06-25-[address] [facility] Repository (20 sources) levoFLOXacin Drug Allergy 06-25-20 [address] [facility] Repository (3 sources) moxifloxacin; Translations: [Avelox] Drug Allergy 06-25-[address] [facility] Repository (5 sources) celecoxib; Translations: [CeleBREX CAPS] Drug Allergy [facility] 250 DO Work Phone: (5 sources) clonazePAM; Translations: [KlonoPIN TABS] Drug Allergy [facility] 250 DO Work Phone: (5 sources) levoFLOXacin; Translations: [Levaquin] Drug Allergy [facility] 250 DO Work Phone: (20 sources) moxifloxacin; Translations: [Avelox] Drug Allergy 07-19-20 06 Hives, Shortness Of Breath, Dyspnea (finding), Eruption of skin (disorder), Itching (finding), Urticaria (disorder), Weal (disorder), Itching, Rash [facility] (5 sources) Erythromycin Derivatives; Translations: [Erythromycin Derivatives] Allergy to drug (finding) [place] [address] DO Work Phone: (2 sources) celecoxib; Translations: [Celebrex] Drug Allergy [place] (3 sources) clonazePAM; Translations: [Klonopin] Drug Allergy [facility] Repository (20 sources) Erythromycin; Translations: [erythromycin] Drug Allergy 01-18-20 21 Itching, Nausea And Vomiting, Nausea (finding) [facility] Other (2 sources) levoFLOXacin; Translations: [Levaquin] Drug Allergy [place] (2 sources) moxifloxacin; Translations: [Avelox] Drug Allergy [place] (12 sources) pimavanserin; Translations: [PIMAVANSERIN] Drug Allergy 08-23-20 20 [facility] (6 sources) moxifloxacin; Translations: [moxifloxacin] Drug Allergy 07-19-20 06 Unknown Reaction, [facility] Encounters Encounter Date Encounter Type Care Provider Facility Start: 04-05-2024 End: 04-05-2024 Lab Drop off Pippa X Orzech [facility] Start: 04-05-2024 End: 04-05-2024 ambulatory Pippa X Orzech Facility:[facility] Start: 04-05-2024 End: 04-05-2024 Patient encounter procedure Pippa X Orzech [facility] Start: 03-17-2024 ambulatory [facility] Start[facility] 03-16-[address] [facility] Start: 03-15-2024 End: 03-15-2024 ambulatory Pippa X Orzech Facility:[facility] Start: 03-15-2024 End: 03-15-2024 Patient encounter procedure Pippa X Orzech [facility] Start: 02-23-2024 End: 02-23-2024 ambulatory Fidel IBARRA Facility:[facility] Start: 02-23-2024 End: 02-23-2024 Lab Drop off Fidel IBARRA [facility] Start: 02-22-2024 End: 02-22-2024 ambulatory Fidel IBARRA Facility:[facility] Start: 02-22-2024 End: 02-22-2024 Patient encounter procedure Fidel IBARRA [facility] Start: 02-11-2024 Non-patient / Non-visit DO Barbie Crabtree Work Phone: [facility] Gastroenterology Work Phone: Start: 02-11-2024 End: 02-11-2024 Admission to same day surgery center DO Ellen Bordens Work Phone: [facility] Work Phone: Start: 02-11-2024 End: 02-11-2024 ambulatory DO Ellen Crabtree Work Phone: [facility] Work Phone: Start: 02-10-2024 End: 02-10-2024 ambulatory [facility] Work Phone: Start: 02-10-2024 End: 02-10-2024 Patient encounter procedure [facility] [place] Work Phone: Start: 02-01-2024 End: 02-01-2024 ambulatory Fidel IBARRA Facility:[facility] Start: 02-01-2024 End: 02-01-2024 Patient encounter procedure Fidel IBARRA [facility] Start: 01-28-2024 End: 01-28-2024 ambulatory [facility] Start: 01-22-2024 End: 01-22-2024 ambulatory [facility] Work Phone: Start: 01-22-2024 End: 01-22-2024 Patient encounter procedure [facility] Gastroenterology Work Phone: Start: 01-12-2024 Telephone encounter Rachel Mixon [facility] Start: 01-11-2024 End: 01-11-2024 ambulatory Fidel IBARRA Facility:[facility] Start: 01-11-2024 End: 01-11-2024 Patient encounter procedure Fidel IBARRA [facility] Start: 01-08-2024 Telephone encounter Rachel Mixon CMA [facility] Start: 01-06-2024 Non-patient / Non-visit [facility] Work Phone: Start: 12-14-2023 End: 12-14-2023 ambulatory Fidel IBARRA Facility:[facility] Start: 12-11-2023 Refill [facility] Comment on above: Orthostasis Start: 11-17-2023 Telephone encounter [facility] Start: 11-17-2023 End: 11-17-2023 ambulatory Fidel IBARRA [facility] Other Start: 11-17-2023 End: 11-17-2023 Patient encounter procedure Fidel IBARRA [facility] Start: 11-16-2023 End: 11-16-2023 Office outpatient visit 40 minutes [facility] Work Phone: [facility] Comment on above: Parkinson's disease without dyskinesia or fluctuating manifestations (Primary Dx); Spinal stenosis of lumbar region with neurogenic claudication; Anxiety Start: 11-16-2023 End: 11-16-2023 ambulatory [facility] Start: 11-14-2023 Refill Andrés amezquita MD Work Phone: [facility] Comment on above: Parkinson's disease Start: 11-10-2023 End: 11-10-2023 ambulatory Ellen Crabtree Other [facility] Other Start: 11-10-2023 Office outpatient vi sit 25 minutes Ellen Crabtree [facility] Start: 11-10-2023 End: 11-10-2023 Patient encounter procedure [facility]- Start: 11-09-2023 End: 11-09-2023 Refill Andrés Bowden MD Work Phone: [facility] Comment on above: Parkinson's disease Start: 11-09-2023 Telephone encounter [facility] Start: 10-21-2023 End: 10-21-2023 Lab Drop off Fidel IBARRA [facility] Start: 10-21-2023 End: 10-21-2023 ambulatory Fidel IBARRA Facility:[facility] Start: 10-05-2023 End: 10-05-2023 ambulatory Ellen Kuns Other [facility] Other Start: 10-05-2023 Telephone encounter Ellen Kuns [facility] [place] Start: 09-22-2023 End: 09-22-2023 ambulatory Ellen Kuns Other [facility] Other Start: 09-22-2023 Telephone encounter Ellen Kuns [facility] [place] Start: 09-16-2023 End: 09-16-2023 ambulatory Ellen Kuns Other [facility] Other Start: 09-16-2023 Telephone encounter Ellen Kuns [facility] [place] Start: 09-15-2023 Telephone encounter Ellen Kuns [facility] [place] Start: 09-15-2023 End: 09-15-2023 ambulatory Fidel IBARRA [place] [facility] Other Start: 09-15-2023 End: 09-15-2023 Patient encounter procedure Fidel IBARRA [facility] Start: 09-02-2023 End: 09-02-2023 ambulatory Ellen Kuns Other [facility] Other Start: 09-02-2023 Office outpatient vi sit 25 minutes Ellen Kuns [facility] [place] Start: 08-25-2023 End: 08-25-2023 ambulatory Ellen Kuns Other [facility] Other Start: 11-07-2023 Telephone encounter Ellen Kuns [facility] [place] Start: 08-14-2023 End: 08-14-2023 ambulatory Fidel IBARRA Facility:[facility] Start: 08-14-2023 End: 08-14-2023 Patient encounter procedure Fidel IBARRA [facility] Start: 07-17-2023 End: 07-17-2023 ambulatory Fidel IBARRA Facility:[facility] Start: 07-17-2023 End: 07-17-2023 Lab Drop off Fidel R WALTER [facility] Start: 07-17-2023 End: 07-17-2023 ambulatory Fidel IBARRA Facility:[facility] Start: 07-17-2023 End: 07-17-2023 Patient encounter procedure Fidel IBARRA [facility] Start: 07-03-2023 End: 07-03-2023 ambulatory Ellen Crabtree Other [facility] Other Start: 07-03-2023 Telephone encounter Ellen Crabtree [facility] Start: 07-01-2023 End: 07-01-2023 ambulatory Fidel IBARRA Facility:[facility] Start: 06-19-2023 End: 06-19-2023 ambulatory Fidel IBARRA Facility:[facility] Start: 06-19-2023 End: 06-19-2023 Lab Drop off Fidel R IBARRA [facility] Start: 06-19-2023 End: 06-19-2023 ambulatory Fidelmunir IBARRA Facility:[facility] Start: 06-19-2023 End: 06-19-2023 Patient encounter procedure Fidel IBARRA [facility] Start: 06-16-2023 End: 06-16-2023 ambulatory Ellen Kuns Other [facility] Other Start: 06-16-2023 Telephone encounter Ellen Kuns [facility] [place] Start: 06-11-2023 End: 06-11-2023 ambulatory Ellen Kuns Other [facility] Other Start: 06-11-2023 Telephone encounter Ellen Kuns [facility] [place] Start: 05-26-2023 End: 05-26-2023 ambulatory Ellen Kuns Other [facility] Other Start: 05-26-2023 Telephone encounter Ellen Kuns [facility] [place] Start: 05-25-2023 End: 05-25-2023 Lab Drop off Fidel IBARRA [facility] Start: 05-25-2023 End: 05-25-2023 ambulatory Fidel IBARRA Facility:[facility] Start: 05-25-2023 End: 05-25-2023 Patient encounter procedure Fidel IBARRA [facility] Start: 05-19-2023 End: 05-19-2023 ambulatory Ellen Kuns Other [facility] Other Start: 05-19-2023 Office outpatient vi sit 25 minutes Ellen Kuns [facility] [place] Start: 04-27-2023 Telephone encounter Ellen Kuns [facility] [place] Start: 04-27-2023 End: 04-27-2023 ambulatory Fidel IBARRA [facility] Other Start: 04-27-2023 End: 04-27-2023 Patient encounter procedure Fidel IBARRA [facility] Start: 04-16-2023 End: 04-16-2023 ambulatory Eleln Kuns Other [facility] Other Start: 04-16-2023 Telephone encounter Ellen Kuns [facility] [place] Start: 03-20-2023 End: 03-20-2023 Patient encounter procedure Fidel R WALTER [facility] Start: 03-20-2023 End: 03-20-2023 Patient encounter procedure Fidel Eunice IBARRA [facility] Start: 03-19-2023 End: 03-19-2023 ambulatory Ellen Kuns Other [facility] Other Start: 03-19-2023 Telephone encounter Ellen Kuns [facility] [place] Start: 02-20-2023 End: 02-20-2023 Patient encounter procedure Fidel Hinkle WALTER [facility] Start: 02-17-2023 End: 02-17-2023 ambulatory Ellen Kuns Other [facility] Other Start: 02-17-2023 Telephone encounter Ellen Kuns [facility] [place] Start: 02-16-2023 End: 02-16-2023 ambulatory Ellen Kuns Other [facility] Other Start: 02-16-2023 Telephone encounter Ellen Kuns [facility] [place] Start: 02-11-2023 End: 02-11-2023 ambulatory Ellen Kuns Other [facility] Other Start: 02-11-2023 Telephone encounter Ellen Crabtree [facility] Start: 01-30-2023 End: 01-30-2023 Patient encounter procedure Fidel IBARRA [facility] Start: 01-24-2023 Encounter for preprocedural cardiovascular examination DR FIDEL IBARRA . [facility] Start: 01-24-2023 Encounter for preprocedural laboratory examination DR FIDEL IBARRA . [facility] Start: 01-22-2023 End: 01-22-[address] FIDEL IBARRA . Facility: Start: 01-20-2023 End: 01-21-[address] FIDEL IBARRA . Facility:[facility] Start: 01-20-2023 End: 01-21-2023 Encounter for preprocedural cardiovascular examination DR FIDEL IBARRA . Facility:[facility] Start: 01-14-2023 End: 01-14-2023 ambulatory Ellen Crabtree Other [facility] Other Start: 01-14-2023 Telephone encounter Ellen Crabtree [facility] Start: 12-24-2022 End: 12-24-2022 Unlisted evaluation and management service Say Reyes APRN.[facility] Work Phone: Urology Comment on above: NO SHOW (Primary Dx) Start: 12-18-2022 End: 12-18-2022 ambulatory MICHELL CRABTREE . Facility: Start: 12-08-2022 End: 12-08-2022 ambulatory Ellen Crabtree Other [facility] Other Start: 12-08-2022 Telephone encounter Ellen Crabtree [facility] Start: 12-06-2022 ambulatory Zelda Saenz RN NURSE O N CALL Comment on above: Medication Problem Start: 12-01-2022 End: 12-01-2022 Evaluation and management of inpatient KANG LOYA Facility:[facility] Start: 11-20-2022 End: 12-06-2022 Evaluation and management of inpatient ELLEN DARIUS CRABTREE Facility:[facility] Start: 11-19-2022 End: 11-19-2022 ambulatory Ellen Kuns Other [facility] Other Start: 11-19-2022 Telephone encounter Ellen Kuns [facility] Start: 11-17-2022 End: 11-17-2022 ambulatory Ellen Kuns Other [facility] Other Start: 11-17-2022 Telephone encounter Ellen Kuns [facility] Start: 11-14-2022 End: 11-14-2022 ambulatory Ellen Kuns Other [facility] Other Start: 11-14-2022 Telephone encounter Ellen Kuns [facility] Start: 11-11-2022 End: 11-11-2022 ambulatory Ellen Kuns Other [facility] Other Start: 11-11-2022 Office outpatient vi sit 25 minutes Ellen Kuns [facility] Start: 11-10-2022 End: 11-10-2022 ambulatory Ellen Kuns Other [facility] Other Start: 11-10-2022 Telephone encounter Ellen Kuns [facility] Start: 11-05-2022 End: 11-09-2022 Evaluation and management of inpatient DR ALTON MANCINI . Facility:[facility] Start: 10-08-2022 End: 10-08-[address] DOCTOR TIPTON Facility:[facility] Start: 09-04-2022 End: 09-04-2022 ambulatory Ellen Kuns Other [facility] Other Start: 09-04-2022 Telephone encounter Ellen Kuns [facility] Start: 09-02-2022 End: 09-02-2022 ambulatory Ellen Kuns Other [facility] Other Start: 09-02-2022 Office outpatient vi sit 25 minutes Ellen Kuns [facility] [place] Start: 08-29-2022 End: 08-29-2022 ambulatory Ellen Kuns Other [facility] Other Start: 08-29-2022 Telephone encounter [facility] Start: 08-28-2022 End: 08-28-2022 ambulatory Ellen Kuns Other [facility] Other Start: 08-28-2022 Telephone encounter [facility]uns [facility] Start: 06-17-2022 End: 06-17-2022 ambulatory Ellen Kuns Other [facility] Other Start: 06-17-2022 Telephone encounter Ellen Kuns [facility] Start: 05-21-2022 End: 05-21-2022 ambulatory Ellen Kuns Other [facility] Other Start: 05-21-2022 Telephone encounter Ellen Kuns [facility] Start: 04-08-2022 End: 04-08-2022 ambulatory Ellen Kuns Other [facility] Other Start: 04-08-2022 Telephone encounter Ellen Kuns [facility] Start: 04-03-2022 Telephone encounter Ellen R Suleman ns Work Phone: [facility] [address] DO Work Phone: Start: 03-25-2022 End: 03-25-2022 ambulatory Ellen Kuns Other [facility] Other Start: 03-25-2022 Telephone encounter Ellen Michis [facility] Start: 03-18-2022 End: 03-18-2022 ambulatory Ellen Michis Other [facility] Other Start: 03-18-2022 Telephone encounter Ellen Michis [facility] Start: 03-10-2022 End: 03-10-2022 ambulatory Ellen Michis Other [facility] Other Start: 03-10-2022 Telephone encounter Ellen Michis [facility] Start: 02-07-2022 End: 02-18-2022 Evaluation and management of inpatient ARCHANAN F [facility] Start: 02-07-2022 End: 02-18-2022 Evaluation and management of inpatient Frank [facility]uel [facility] YBARRA Work Phone: [facility] Orthopedics [phone] Comment on above: Lumbar stenosis with neurogenic claudication (Primary Dx) Start: 01-27-2022 End: 01-27-2022 ambulatory Ellen Michis Other [facility] Other Start: 01-27-2022 Encounter for other preprocedural examination Ellen Bordens [facility] Start: 01-27-2022 Office outpatient vi sit 25 minutes Ellen Crabtree [facility] Start: 01-27-2022 Pre-procedure evalua tion check Ellen Crabtree Other [facility] Other Start: 01-23-2022 End: 01-24-2022 ambulatory SELVON F [facility] Start: 01-23-2022 End: 01-28-2022 [facility] Start: 01-20-2022 End: 01-20-2022 ambulatory Ellen Kuns Other [facility] Other Start: 01-20-2022 Telephone encounter Ellen Michis [facility] [place] Start: 01-13-2022 End: 01-13-2022 ambulatory Ellen Kuns Other [facility] Other Start: 01-13-2022 Telephone encounter Ellen Kuns [facility] [place] Start: 12-05-2021 End: 12-05-2021 ambulatory Ellen Kuns Other [facility] Other Start: 12-05-2021 Office outpatient vi sit 25 minutes Ellen Kuns [facility] [place] Start: 12-03-2021 Split Srvc L[place] Other [facility] Office Start: 11-19-2021 Split Srvc Lashon G [place] Other [facility] Office Start: 11-11-2021 Telephone encounter Phani Henderson MD Work Phone: Pain Management Comment on above: Post Op Start: 10-23-2021 End: 10-23-2021 ambulatory Ellen Michis Other [facility] Other Start: 10-23-2021 Telephone encounter Ellen Michis [facility] [place] Start: 10-07-2021 End: 10-07-2021 ambulatory Ellen Kuns Other [facility] Other Start: 10-07-2021 Telephone encounter Ellen Michis [facility] [place] Start: 09-30-2021 End: 09-30-2021 ambulatory Ellen Kuns Other [facility] Other Start: 09-30-2021 Telephone encounter Ellen Kuns [facility] [place] Start: 09-27-2021 End: 09-27-2021 ambulatory Yifan Gama Other [facility] Other Start: 09-27-2021 Telephone encounter Yifan [facility] Start: 09-08-2021 Chart Update Ellen R Kuns Work Phone: [facility] [address] [place] Work Phone: Start: 09-05-2021 Patient encounter procedure [facility]uns [facility] [place] Work Phone: Start: 09-03-2021 End: 09-03-2021 ambulatory Ellen Kuns Other [facility] Other Start: 09-03-2021 Telephone encounter Ellen Kuns [facility] Start: 08-27-2021 End: 08-27-2021 ambulatory Ellen Kuns Other [employer] Other Start: 08-27-2021 Office outpatient vi sit 25 minutes Ellen Kuns [facility] Start: 08-21-2021 End: 08-21-2021 ambulatory Ellen Kuns Other [employer] Other Start: 08-21-2021 Telephone encounter Ellen Kuns [facility] Start: 08-16-2021 Office consultation new/estab patient 80 min Ellen R Kuns [facility] [place] Work Phone: Start: 08-16-2021 Patient encounter procedure [facility] Work Phone: Start: 08-16-2021 Telephone encounter Yifan BURGESS [facility] Start: 08-06-2021 Office outpatient vi sit 15 minutes Ellen Kuns [facility] Start: 08-15-2020 End: 08-15-2020 Subsequent hospital visit by physician [facility] Joana Work Phone: Radiology Comment on above: Radiculopathy of lum bar region [M54.16] Start: 06-21-2020 End: 06-21-2020 Subsequent hospital visit by physician X[facility] Comment on above: 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] Start: 06-15-2020 End: 06-15-2020 Subsequent hospital visit by physician [facility] Joana Work Phone: Radiology Comment on above: Pain in thoracic spi ne [M54.6] Start: 12-29-2017 End: 12-31-2017 Evaluation and management of inpatient [facility] Start: 12-07-2017 Ambulatory [facility] Start: 07-01-2017 End: 07-02-2017 Evaluation and management of inpatient [facility] Start: 05-30-2016 End: 06-16-2016 Ambulatory PROVIDER UNKNOWN Facility:[facility] Medical Equipment Procedure Code Equipment Code Equipment Origin al Text Equipment Identifier Dates Restrictor 24mm Medium Eldon Cement Revision Plug Hip - [id number] Start: 04-27-2017 Cement Simplex P Tobramycin Bone Full Dose Radiopaque Preblend Sterile - [id number] Start: 04-27-2017 Restrictor 30mm Large Eldon Cement Revision Plug Hip - [id number] Start: 04-27-2017 Cement Simplex P Speedset Bone Radiopaque Sterile - [id number] Start: 12-29-2017 Khg-Qj-V-Kind Implant - [id number] Start: 06-05-2016 Comment on above: Description: NEVRO C ORP. N300 LEAD ANCHOR KIT Head Global Unit e 52mm Standard 18mm Humeral - [id number] Start: 12-29-2017 Nevro Surgical L ead Kit [id number] Start: 03-16-2018 Head V40 28mm -2 .7mm Offset Taper Biolox Delta Femoral Hip - [id number] Start: 11-08-2019 Liner 46mm F Dylon r Acetabular Modular Dual Mobility Primary Hip - [id number] Start: 11-08-2019 Insert Adm Mobil e Bearing Hip Temple 52mm 28mm 0d X3 8.9mm Acetabular - [id number] Start: 11-08-2019 Insert Adm Mobil e Bearing Hip Temple 52mm 28mm 0d X3 8.9mm Acetabular - [id number] Start: 05-03-2020 Head V40 28mm +4 mm Offset Taper Biolox Delta Femoral Hip - [id number] Start: 05-03-2020 Liner 46mm F Dylon r Acetabular Modular Dual Mobility Primary Hip - [id number] Start: 05-03-2020 Stem Triathlon 1 2mm Cocr 100mm Femoral Cemented Total Stabilized Knee - [id number] Start: 04-27-2017 Stem Triathlon 1 5mm Cocr 50mm Femoral Cemented Total Stabilize Knee - [id number] Start: 04-27-2017 Component Triath lisy 7 Cocr Femoral Total Stabilize Knee Left - [id number] Start: 04-27-2017 Augment Triathlo n 7 5mm Femoral Total Stabilize Knee Posterior - [id number] Start: 04-27-2017 Augment Triathlo n 7 5mm Femoral Total Stabilize Knee Left - [id number] Start: 04-27-2017 Augment Triathlo n 7 5mm Femoral Total Stabilize Knee Left - [id number] Start: 04-27-2017 Augment Triathlo n 6 10mm Tibial Total Stabilize Right Medial Left Lateral - [id number] Start: 04-27-2017 Baseplate Triath lisy 6 Eldon Cocr Tibial Total Stabilize Cemented Knee - [id number] Start: 04-27-2017 Augment Triathlo n 6 10mm Tibial Total Stabilize Left Medial Right Lateral - [id number] Start: 04-27-2017 Insert Triathlon 6 X3 16mm Tibial Total Stabilize Plus Knee - [id number] Start: 04-27-2017 Component Triath lisy 7 Pa Femoral Cruciate Retain Bead Knee Right - [id number] Start: 07-01-2017 Insert Triathlon 6 X3 13mm Tibial Condylar Stabilized Knee - [id number] Start: 07-01-2017 Baseplate Triath lisy 6 Tritanium 71s23iz Tibial 4 Cruciform Peg Keel Knee - [id number] Start: 07-01-2017 Component Tritan ium 35mm Metal 10mm Patellar Asymmetric Knee - [id number] Start: 07-01-2017 Component Triath lisy 35mm 10mm Patellar Asymmetric Knee - [id number] Start: 04-27-2017 Head 48mm 7mm Humeral Marion Peg Left Glenoid - [id number] Start: 12-29-2017 Stem Global Ap 1 2mm Porocoat 137mm Humeral Arthroplasty System Shoulder - [id number] Start: 12-29-2017 Assembly Global Ap 135d Taper Fix Shoulder Arthroplasty System - [id number] Start: 12-29-2017 Augment Triath T ib Cone Sz A - [id number] Start: 04-27-2017 Stem Accolade Ii 7 127d Femoral - [id number] Start: 11-08-2019 Shell Trident Ii 56mm F Tritanium Acetabular 5 Screw Hole Cluster Sterile - [id number] Start: 11-08-2019 Stem Accolade Ii 7 127d Femoral - [id number] Start: 05-03-2020 Shell Trident Ii 56mm F Tritanium Acetabular 5 Screw Hole Cluster Sterile - [id number] Start: 05-03-2020 Lead 50cm Nevro - [id number] Start: 05-08-2016 Comment on above: Description: 50 Lead 50cm Nevro - [id number] Start: 06-05-2016 Comment on above: Description: NEVRO B LUE PERC LEAD KIT Lead 50cm Nevro - [id number] Start: 06-05-2016 Comment on above: Description: NEVRO B LUE PERC LEAD KIT Gnrtr Nrstm Ipg Kit Nevro - [id number] Start: 06-05-2016 Comment on above: Description: NEVRO N IPG KIT Screw Spinal Streamline 7.5x55mm - [id number] Start: 02-07-2022 Set Scr Spnl Ti Streamline - [id number] Start: 02-07-2022 Screw Spnl L45mm Dia7.5mm Thorlum Ti Ally Polyax Streamline - [id number] Start: 02-07-2022 Screw Spnl L50mm Dia7.5mm Thorlum Ti Ally Polyax Streamline - [id number] Start: 02-07-2022 Ta Spnl L120mm [id number] Thorlum Prebent Streamline - [id number] Start: 02-07-2022 Ta Spnl L100mm Vet46cc Thorlum Prebent Streamline - [id number] Start: 02-07-2022 Syringe With Nee dle (Bd Slip Tip Syringe) 1 mL 26 gauge x 5/8 syringe Start: 01-06-2024 Syringe With Nee dle (Bd Slip Tip Syringe) 1 mL 26 gauge x 5/8 syringe Start: 01-06-2024 Syringe With Nee dle (Bd Slip Tip Syringe) 1 mL 26 gauge x 5/8 syringe Start: 01-06-2024 Goals Date Patient Goal Desired Activity /State Personal health goal Comment on above: Formatting of this n ote might be different from the original. Evaluation of progress towards goal: Plan to return home with supportive , after short acute inpatient rehabilitation, for post acute care. Personal health goal Comment on above: Formatting of this n ote might be different from the original. Evaluation of progress towards goal: Participating in care and rehab Immunizations Immunization Date Immunization Notes Care Provider Fa naresh 11-10-2023 influenza, high dose seasonal, preservative-free Ellen Crabtree Other [facility] 11-10-2023 influenza virus vaccine, unspecified formulation [facility] 10-21-2022 pneumococcal conjuga te vaccine, 13 valent Fidel IBARRA [facility] 09-18-2022 influenza virus vaccine, unspecified formulation Fidel IBARRA [facility] 09-02-2022 influenza, injectabl e, quadrivalent, contains preservative Ellen Leyda Other [facility] 09-02-2022 influenza virus vaccine, unspecified formulation Fidel IBARRA [facility] 09-02-2022 influenza, injectabl e, quadrivalent, preservative free [facility] 11-06-2021 COVID-19, Moderna, 100mcg/0.5ml [employer] 10-15-2021 influenza virus vaccine, unspecified formulation Fidel IBARRA [facility] 10-15-2021 Influenza, injectabl e, Madin [place] Canine Kidney, preservative free, quadrivalent Ellen Crabtree Work Phone: [facility] 10-15-2021 Moderna COVID-19 Vaccine 100 MCG/0.5ML Intramuscular Suspension Ellen R Michis Work Phone: [facility] 01-30-2021 COVID-19, Moderna, 100mcg/0.5ml [facility] 01-09-2021 COVID-19 Vaccine Moderna - Documentation Purposes Only Ellen Kuns Other [facility] 01-02-2021 COVID-19, Moderna, 100mcg/0.5ml [facility] [employer] 12-13-2020 COVID-19 Vaccine Moderna - Documentation Purposes Only Ellen Kuns Other [facility] 07-17-2020 influenza virus vaccine, unspecified formulation Fidel IBARRA [facility] 07-17-2020 influenza, injectabl e, quadrivalent, contains preservative Ellen Kuns Other [facility] 07-17-2020 influenza, injectabl e, quadrivalent, preservative free [facility] 04-12-2020 Toradol per 15 mg Ellen Kuns Other [employer] Other 08-24-2019 influenza virus vaccine, unspecified formulation Fidelmunir IBARRA [facility] 08-24-2019 influenza, high dose seasonal, preservative-free Ellen Kuns Other [facility] 01-19-2019 zoster vaccine recombinant Ellen Kuns Other [facility] 01-19-2019 zoster vaccine, unspecified formulation Andrés Bowden MD Work Phone: [employer] 11-15-2018 pneumococcal conjuga te vaccine, 13 valent Phani Henderson MD Work Phone: [facility] 11-15-2018 tetanus toxoid, redu whitney diphtheria toxoid, and acellular pertussis vaccine, adsorbed Phani Henderson MD Work Phone: [facility] 07-07-2018 influenza virus vaccine, unspecified formulation Fidelmunir IBARRA [facility] 07-07-2018 influenza, injectabl e, quadrivalent, contains preservative Ellen Kuns Other [facility] 07-07-2018 influenza, injectabl e, quadrivalent, preservative free [facility] 05-06-2018 Toradol per 15 mg Ellen Kuns Other [employer] Other 10-03-2017 Toradol per 15 mg Ellen Kuns Other [employer] Other 09-17-2017 Toradol per 15 mg Ellen Kuns Other [employer] Other 07-01-2017 influenza virus vaccine, unspecified formulation Fidel IBARRA [facility] 07-01-2017 influenza, injectabl e, quadrivalent, preservative free Ellen R Kuns Work Phone: [facility] 03-24-2017 Toradol per 15 mg Ellen Kuns Other [employer] Other 01-29-2017 Toradol per 15 mg Ellen Kuns Other [employer] Other 12-25-2016 Toradol per 15 mg Ellen Kuns Other [employer] Other 08-12-2016 influenza virus vaccine, unspecified formulation Fidel IBARRA [facility] 08-12-2016 influenza, high dose seasonal, preservative-free Ellen R Kuns Work Phone: [facility] 08-12-2016 influenza, injectabl e, quadrivalent, preservative free [facility] 08-12-2016 Toradol per 15 mg Ellen Kuns Other [employer] Other 08-12-2016 influenza, injectabl e, quadrivalent, contains preservative Ellen Kuns Other [employer] Other 01-17-2016 Toradol per 15 mg Ellen Kuns Other [employer] Other 10-22-2015 tetanus toxoid, redu whitney diphtheria toxoid, and acellular pertussis vaccine, adsorbed Ellen Kuns Other [facility] 10-22-2015 Toradol per 15 mg Ellen Kuns Other [employer] Other 07-23-2015 influenza virus vaccine, unspecified formulation Fidel IBARRA [facility] 07-23-2015 influenza, injectabl e, quadrivalent, preservative free Ellen R Kuns Work Phone: [facility] 07-23-2015 influenza, injectabl e, quadrivalent, contains preservative Ellen Kuns Other [facility] Other 10-26-2014 influenza, injectabl e, quadrivalent, preservative free [facility] 10-26-2014 Toradol per 15 mg Ellen Kuns Other [employer] Other 10-26-2014 influenza, injectabl e, quadrivalent, contains preservative Ellen Kuns Other [employer] Other 07-11-2014 Toradol per 15 mg Ellen Kuns Other [employer] Other 06-27-2014 Toradol per 15 mg Ellen Kuns Other [employer] Other 04-20-2014 Toradol per 15 mg Ellen Kuns Other [employer] Other 01-18-2013 Toradol per 15 mg Ellen Kuns Other [employer] Other 09-15-2012 influenza virus vaccine, split virus (incl. purified surface antigen) Ellen Kuns Other [employer] Other 09-15-2012 influenza virus vaccine, unspecified formulation [facility] 07-15-2010 influenza virus vaccine, unspecified formulation Phani Henderson MD Work Phone: [facility] 08-24-2009 novel [id number], preservative-free, injectable Ellen Crabtree Work Phone: [facility] 08-16-2002 hepatitis B vaccine, adult dosage Ellen Crabtree Work Phone: [facility] 01-27-2002 hepatitis B vaccine, adult dosage Ellen Crabtree Work Phone: [facility] 08-13-1995 pneumococcal polysaccharide vaccine, 23 valent Ellen Crabtree Other [facility] Medications Current Medications Medication Drug Class(es) Dates Sig (Normalized) Sig (Original) acarbose 25 mg oral tablet (20 sources) alpha-Glucosidase Inhibitor Start: 02-07-2022 take 25 mg by mouth three times daily at mealtime 25 mg, Oral, 3 TIMES DAILY WITH MEALS, First dose on Thu02/07/22 at 1700, Until Discontinued Start: 01-13-2019 End: 01-06-2024 acarbose 25 mg oral tablet R efills(s) 0 Start Date: 01/16/23 Status: Ordered Start: 12-29-2007 End: 12-06-2022 acarbose(PRECOSE 25 MG TAB) Indications: Hypoglycemia, unspecified , Obesity, unspecified Take one(1) tablet three(3) times daily. 1 month supply 3 12/29/2007 12/06/2022 Discontinued Comment on above: Take one(1) tablet t hree(3) times daily. acetaminophen 325 mg oral tablet (20 sources) Start: take 2 tablets by mouth every six hours Acetaminophen (Tylenol) 325 mg tablet Active 650 MG PO Every 6 hours January 06, 2024 12:00am Start: 04-19-2023 End: 01-06-2024 take 650 mg by mouth every six hours Acetaminophen Discontinued 650 MG PO Q6H 0 April 19, 2023 12:00am January 06, 2024 4:08pm Start: 12-06-2022 take 2 tablets by mo uth three times daily acetaminophen (TYLENOL) 500 mg tablet 2 tablets by ORAL/FEEDING TUBE route three times daily. 42 tablet 0 12/06/2022 Active Start: 03-07-2022 End: 03-23-2023 take 500 mg by mouth every four hours Acetaminophen Discontinued 500 MG PO Q4H 0 March 07, 2022 12:00am March 23, 2023 1:58pm Start: 02-07-2022 take 650 mg by mouth every six hours as needed, then take 4000 mg by mouth every twenty-four hours as needed 650 mg, Oral, EVERY 6 HOURS PRN, Starting on Thu02/07/22 at 1617, Until Discontinued, Pain Mild (1-3), Fever Maximum dose of acetaminophen is 4000 mg from all sources in 24 hours. Post-op Start: 02-17-2019 End: 03-07-2022 take 1 tablet by mouth every six hours Acetaminophen (Tylenol) 325 mg Tablet Discontinued 325 MG PO Q6H February 17, 2019 12:00am March 07, 2022 9:03am Tylenol 325 mg c apsule take 1 capsule by oral route As needed unsure of dose Comment on above: 2 tablets by ORAL/FE EDING TUBE route three times daily. acetaminophen 500 mg / caffeine 65 mg oral tablet (7 sources) Central Nervous System Stimulant, Methylxanthine Start: 02-20-20 21 take 2 tablets by mouth every six hours as needed acetaminophen-caffe ine (EXCEDRIN TENSION HEADACHE) 500-65 mg tablet Take 2 tablets by mouth every 6 (six) hours as needed (Migraine). 90 tablet 0 02/19/2021 Active amoxicillin 875 mg / clavulanate 125 mg oral tablet (1 source) Penicillin-class Antibacterial Start: 01-21-20 take 1 tablet by mouth once daily Augmentin 875 mg oral tablet = 1 tab(s), Oral, Daily, # 30 tab(s), Refills(s) 0, Pharmacy: [facility] 1155, 175, cm, 01/16/23 10:13:00 EDT, Height/Length Dosing, 92, kg, 01/16/23 10:13:00 EDT, Weight Dosing Start Date: 01/20/23 Status: Ordered atorvastatin 10 mg oral tablet (20 sources) HMG-CoA Reductase Inhibitor Start: 09-17-20 End: 01-06-20 24 atorvastatin 10 mg Tab Refills(s) 0 Start Date: 01/16/23 Status: Ordered Comment on above: Take 10 mg by mouth once daily. benzonatate 100 mg oral capsule (20 sources) Non-narcotic Antitussive Start: 12-06-19 End: 04-19-20 benzonatate 100 mg Cap Refills(s) 0 Start Date: 01/16/23 Status: Ordered Comment on above: Take 1 capsule by [facility] three times daily as needed for cough. augmented betamethasone 0.5 mg/ml topical cream (13 sources) Corticosteroid Start: 02-20-20 betamethasone, augmented, (DIPROLENE) 0.05 % cream Apply 1 application topically daily. 30 g 0 02/19/2021 Active Start: 05-26-2017 End: 11-20-2022 Betamethasone, Augmented (Di prolene (Augmented)) 0.05 % Ointment Discontinued 1 APPLIC TOPICAL Daily at bedtime February 17, 2019 12:00am August 29, 2021 10:34am Comment on above: APPLY TO THE AFFECTE D AREA(S) ONCE DAILY carbidopa 25 mg / levodopa 100 mg oral tablet (20 sources) Aromatic Amino Acid Decarboxylation Inhibitor, Aromatic Amino Acid Start: 01-06-2024 Carbidopa-Levodopa Active 1 TAB PO Five times daily January 06, 2024 12:00am [employer] tabs @ 6am, 2 tabs @ 10am, 1 tab @ 2 pm, 1 tab @6pm Oral as directed; Note: Source Status: Taking do not eat an hour prior or after taking; Start: 01-06-2024 Carbidopa-Levo dopa Active 1 TAB PO Five times daily January 06, 2024 12:00am 1 tab @2am, 2 tabs @6am, 2 tabs@ 10 am , 1 tab @2pm, 1 tab @6pm, 1 tab @10pm orally as directed; Note: Source Status: Takingused with sinemet IR Start: 01-06-2024 Carbidopa-Levo dopa Active 1 TAB PO January 06, 2024 12:00am [employer] tabs @ 6am, 2 tabs @ 10am, 1 tab @ 2 pm, 1 tab @6pm Oral as directed; Note: Source Status: Taking do not eat an hour prior or after taking; Start: 08-07-2023 carbidopa-levo dopa (SINEMET CR) 25-100 mg per CR tablet Indications: Parkinson's disease (CMS-HCC) TAKE 1 TABLET BY MOUTH AT 2AM, 2 TABLETS AT 6AM AND 10AM, 1 TABLET AT 2PM, 6PM, AND 10PM. TAKE WITH SINEMET IR. 240 tablet 11 08/07/2023 Active Start: 01-16-2023 End: 01-06-2024 carbidopa-levodopa 25 mg-100 mg ER Tab Refill(s) 0 Start Date: 01/16/23 Status: Ordered Start: 11-04-2022 take 2 tablets by mo [facility] once in the morning, then take 2 [...] and 2 am. 0 11/04/2022 Active Start: 02-18-2022 End: 01-06-2024 take 2 tablets by mouth twice daily Carbidopa-Levodopa Discontinued 2 TAB PO BID@06,1000 February 18, 2022 12:00am January 06, 2024 4:08pm Start: 02-13-2022 End: 11-16-2023 carbidopa-levodopa (SINEMET) 25-100 mg per tablet Indications: Parkinson's disease ([facility]) TAKE 2 TABLETS BY MOUTH AT 6AM AND 10AM, 1 TAB AT 2PM AND 6PM. AVOID PROTEIN 1 HOUR BEFORE OR AFTER EACH DOSE. TAKE ALONG WITH SINEMET CR. 180 tablet 11 11/16/2023 Active Start: 02-07-2022 carbidopa-levo dopa (SINEMET CR) 25-100 MG per extended release tablet 1 tablet Start: 07-28-2019 take 1.5 tablets by mouth four times daily carbidopa-levodopa (SINEMET) 25-100 mg per tablet Indications: PD (Parkinson's disease) ([facility]) Take 1.5 tablets by mouth four times daily. 540 tablet 1 07/28/2019 Active Start: 02-17-2019 End: 01-06-2024 Carbidopa-Levodopa Discontin ued 1 TAB PO 14,18 February 17, 2019 12:00am January 06, 2024 4:08pm Carbidopa-Levodo pa 25-100 MG 2 tabs @ 6am, 2 tabs @ 10am, 1 tab @ 2 pm, 1 tab @6pm Oral as directed do not eat an hour prior or after taking Active carbidopa 10 mg- levodopa 100 mg tablet unsure of dose Comment on above: Take 1.5 tablets by mouth four times daily. Take 2 tablets by [facility] at 6 am, 2 tablets at 10 am, and 1 tablet at 2 pm, 6 pm, 10 pm and 2 am. cefdinir 300 mg oral capsule (11 sources) Cephalosporin Antibacterial Start: 02-23-2024 End: 03-04-2024 take 1 capsule by mouth every twelve hours cefdinir 300 mg Cap 300 mg = 1 cap(s), Oral, q12hr, X 10 day(s), # 20 cap(s), Refills(s) 0, Pharmacy: [facility] 1155, 175, cm, 03/20/23 9:07:00 EDT, Height/Length Dosing, 92, kg, 03/20/23 9:07:00 EDT, Weight Dosing Start Date: 02/23/24 Stop Date: 03/04/24 Status: Ordered Start: 06-11-2023 End: 06-21-2023 take 1 capsule by mouth every twelve hours cefdinir 300 mg Cap 300 mg = 1 cap(s), Oral, q12hr, X 10 day(s), # 20 cap(s), Refills(s) 0, Pharmacy: [facility] 1155, 175, cm, 03/20/23 9:07:00 EDT, Height/Length Dosing, 92, kg, 03/20/23 9:07:00 EDT, Weight Dosing Start Date: 06/11/23 Stop Date: 06/21/23 Status: Ordered take 1 capsule by [facility] every twelve hours Cefdinir 300 MG 1 capsule Orally bid Active cephalexin 500 mg oral capsule (2 sources) Cephalosporin Antibacterial take 1 capsule by mouth every eight hours Cephalexin 500 MG 1 capsule Orally Three times a day Active compression stockings (20 sources) Start: compression stockings 20-30 mmhg knee high wear daily Jul, Active Start: 08-06-[address] [place] 20-30 mmhg knee high wear daily for 90 days Jul, Active Cpap (Continuous Positive Airway Pressure) (3 sources) Start: 01-06-2024 Cpap (Continuo us Positive Airway Pressure) Active 0 .Route January 06, 2024 12:00am As directed CPAP Machine (20 sources) CPAP Machine Active diclofenac sodium 75 mg delayed release oral tablet (20 sources) Nonsteroidal Anti-inflammatory Drug Start: 02-17-2019 End: 01-06-2024 take 1 mg by mouth twice daily diclofenac sodium 75 mg Oral EC Tab mg tab(s), Oral, BID, Refills(s) 0 Start Date: 01/16/23 Status: Ordered diclofenac sodiu m oral Comment on above: [...] day(s), # 20 cap(s), Refills(s) 0, Pharmacy: [facility] 1155, 175, cm, 03/20/23 9:07:00 EDT, Height/Length Dosing, 92, kg, 03/20/23 9:07:00 EDT, Weight Dosing Start Date: 05/25/23 Stop Date: 06/04/23 Status: Ordered DULoxetine 60 mg delayed release oral capsule (20 sources) Serotonin and Norepinephrine Reuptake Inhibitor Start: 04-28-20 End: 01-06-20 24 duloxetine 60 mg oral delayed release capsule Refills(s) 0 Start Date: 01/16/23 Status: Ordered take 1 capsule by mouth twice da giuliano Cymbalta 20 mg capsule,delayed release take 1 capsule (20 mg) by oral route 2 times per day unsure of dose Comment on above: Take 1 capsule by [facility] once daily. ezetimibe 10 mg oral tablet (20 sources) Dietary Cholesterol Absorption Inhibitor Start: 09-17-20 End: 01-06-20 24 ezetimibe 10 mg Tab Refills(s) 0 Start Date: 01/16/23 Status: Ordered Comment on above: Take 10 mg by mouth once daily. fludrocortisone acetate 0.1 mg oral tablet (20 sources) Start: 04-19-20 End: 01-06-20 take 0.2 mg by mouth once daily Fludrocortisone Discontinued 0.2 MG PO Daily 60 April 19, 2023 12:00am January 06, 2024 4:09pm Start: 02-23-2023 fludrocortison e (FLORINEF) 0.1 mg tablet Indications: 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 ([facility]) 2 tabs daily as directed 180 tablet 3 02/23/2023 Active Start: 12-06-2022 End: 04-19-2023 fludrocortisone 0.1 mg Tab R efills(s) 0 Start Date: 01/16/23 Status: Ordered Comment on above: Take 1 tablet by brendan th once daily. fluticasone propionate 0.05 mg/actuat metered dose nasal spray (11 sources) Corticosteroid Start: 01-06-2024 Fluticasone Propionate Active 1 SPRAY INTRANASAL Daily January 06, 2024 12:00am Start: 09-02-2023 take 1 spray(s) nasa l [...] Start: 02-11-2022 dextrose 5 % s olution insulin lispro 100 unt/ml injectable solution (2 sources) Insulin Analog Start: 02-07-2022 insulin lispro (HUMALOG) injection vial 0-3 Units methylPREDNISolone 4 mg oral tablet (6 sources) Corticosteroid Start: 09-02-2023 methylPREDNISolone 4 MG as directed Orally as directed Aug, Active midodrine hydrochloride 5 mg oral tablet (20 sources) alpha-Adrenergic Agonist Start: 01-06-2024 End: 02-10-2024 Midodrine Active 5 MG PO Four times daily February 10, 2024 1:14pm FreeTextSi mg q am, 10 mg afternoon, 10mg evening Orally tid; Start: 09-02-2023 End: 12-11-2023 take 3 tablets by mouth in the morning, then take 2 tablets by mouth in the evening, then take 2 tablets by mouth in the evening midodrine (PROAMATINE) 5 mg tablet Indications: Orthostasis Take 3 tabs by mouth at 8 am, and take 2 tabs at 12 pm and 2 tabs at 6 pm, 630 tablet 3 12/11/2023 Active Start: 03-23-2023 End: 01-06-2024 Midodrine Discontinued 10 MG PO ,March 23, 2023 2:15pm January 06, 2024 4:09pm Start: 03-23-2023 End: 01-06-2024 take 1 dose by mouth once daily at bedtime Midodrine Discontinued 15 MG PO March 23, 2023 12:00am January 06, 2024 4:09pm do not give last dose of day after 6PM or within 4 hrs of bedtime Start: 12-06-2022 take 1 tablet by brendan once daily midodrine (PROAMATINE) 10 mg tablet Take 1 tablet by mouth once daily. Take daily at 2:00pm 7 tablet 0 12/06/2022 Active Start: 12-06-2022 take 3 tablets by mo [facility] once daily midodrine (PROAMITINE) 5 mg tablet Take 3 tablets by mouth once daily. Take at 7:00am 21 tablet 0 12/06/2022 Active Start: 03-07-2022 End: 03-23-2023 midodrine 5 mg Tab Refills(s ) 0 Start Date: 01/16/23 Status: Ordered Start: 02-10-2022 midodrine (PRO AMATINE) tablet 15 mg Start: 02-09-2022 End: 02-10-2022 midodrine (PROAMATINE) table t 10 mg Start: 02-09-2022 End: 02-09-2022 midodrine (PROAMATINE) table t 7.5 mg Start: 02-08-2022 End: 02-09-2022 midodrine (PROAMATINE) table t 5 mg Start: 02-07-2022 End: 02-08-2022 5 mg, Oral, 2 TIMES DAILY, F irst dose on Thu02/07/22 at 2100, Until Discontinued Do not give after 1800 or within 4 hrs of bedtime. Start: 08-16-2021 End: 03-07-2022 take 5 mg by mouth twice daily Midodrine Discontinued 5 MG PO Twice daily August 29, 2021 1:00am March 07, 2022 9:03am Midodrine HCl 5 MG 15 mg q am, 10 mg afternoon, 10mg evening Orally tid 15 mg Active take 15 mg by mouth three times daily Midodrine HCl 5 MG 15 mg Orally tid 15 mg Active take 3 tablets by mo ut every twelve hours Midodrine HCl 5 MG 3 tablet Orally BID 15 mg Active midodrine 2.5 mg tablet unsure of dose Comment on above: Take 5 mg by mouth t wice daily. Take 3 tablets by mo ut once daily. Take at 7:00am Take 1 tablet by brendan th once daily. Take daily at 2:00pm Take 1 tablet by brendan th once daily. Take daily at 8:00pm Minerin Creme - (16 sources) Minerin Creme - as directed Externally Active Miscellaneous Medical Supply (3 sources) Start: 01-06-2024 Miscellaneous Medical Supply Active 0 .Route January 06, 2024 12:00am As directed Start: 01-06-2024 Miscellaneous Medical Supply Active 0 .ROUTE January 06, 2024 12:00am As directed montelukast 10 mg oral tablet (20 sources) Leukotriene Receptor Antagonist Start: 12-06-2022 End: 01-06-2024 montelukast 10 mg Tab Refills(s) 0 Start Date: 01/16/23 Status: Ordered Comment on above: Take 1 tablet by brendan th once daily. 1 ml morphine sulfate 2 mg/ml cartridge (1 source) Opioid Agonist Start: 02-07-2022 morphine (PF) injection 2 mg multivitamin capsule (7 sources) take 1 capsule by mouth in the morning multivitamin capsule Take 1 capsule by mouth in the morning. 0 Active nitrofurantoin, macrocrystals 25 mg / nitrofurantoin, monohydrate 75 mg oral capsule (10 sources) Nitrofuran Antibacterial Start: 07-22-2023 take 1 capsule by mouth twice daily Macrobid 100 mg Cap 100 mg = 1 cap(s), Oral, BID, # 5 cap(s), Refills(s) 0, Pharmacy: [facility] 1155, 175, cm, 03/20/23 9:07:00 EDT, Height/Length Dosing, 92, kg, 03/20/23 9:07:00 EDT, Weight Dosing Start Date: 07/22/23 Status: Ordered Start: 06-11-2023 End: 06-21-2023 take 1 capsule by mouth twice daily Macrobid 100 mg Cap 100 mg = 1 cap(s), Oral, BID, X 10 day(s), # 20 cap(s), Refills(s) 0, Pharmacy: [facility] 1155, 175, cm, 03/20/23 9:07:00 EDT, Height/Length Dosing, 92, kg, 03/20/23 9:07:00 EDT, Weight Dosing Start Date: 06/11/23 Stop Date: 06/21/23 Status: Ordered ondansetron (ZOFRAN-ODT) disintegrating tablet 4 mg (1 source) Start: 02-07-2022 ondansetron (Z OFRAN-ODT) disintegrating tablet 4 mg Polyethylene Glycol 3350 17 GM/SCOOP (3 sources) Polyethylene Gly col 3350 17 GM/SCOOP as directed Orally Active potassium citrate 15 meq extended release oral tablet (20 sources) Start: 01-06-2024 End: 02-02-2024 take 15 mEq by mouth twice daily Potassium Citrate Active 15 MEQ PO Twice daily February 02, 2024 9:25am Start: 09-22-2023 take 1 tablet by brendan th every twelve hours Potassium Citrate ER 15 MEQ (1620 MG) 1 tablet with meals Orally Twice a day for 90 days Sep, Active Start: 02-17-2019 End: 03-23-2023 Potassium Citrate Discontinu ed 15 MEQ PO As Directed March 07, 2022 9:01am March 23, 2023 1:58pm Start: 03-05-2016 take 1 tablet by brendan th three times daily at mealtime Potassium Citrate 15 MEQ (1620 MG) 1 tablet with meals Orally Three times a day February, Active Start: 03-05-2016 take 1 tablet by brendan three times daily at mealtime Potassium Citrate 15 MEQ (1620 MG) 1 tablet with meals Orally Three times a day February, Not-Taking Start: 06-23-2007 End: 11-20-2022 take 1 tablet by mouth three times daily potassium citrate (UROCIT-K 10) 10 mEq ORAL TbSR Take one(1) tablet three times daily. 0 06/23/2007 11/20/2022 Discontinued take 1 tablet by [facility] three times daily Potassium Citrate ER 15 MEQ (1620 MG) Oral Tablet Extended Release TAKE 1 TABLET 3 times daily Quantity: 0 Refills: 0 Ordered: 16-Aug-2021 DO Active Comment on above: Take one(1) tablet t hree times daily. pregabalin 300 mg oral capsule (20 sources) Start: 11-19-2021 Lyrica 600 mg 11/19/2021 Take 1 twice daily Start: 02-17-2019 End: 01-06-2024 take 1 mg by mouth twice daily pregabalin 300 mg Cap m g cap(s), Oral, BID, Refills(s) 0 Start Date: 01/16/23 Status: Ordered Comment on above: Take 300 mg by mouth twice daily. SUMAtriptan 50 mg oral tablet (11 sources) Serotonin-1b and Serotonin-1d Receptor Agonist Start: 09-03-2023 take 1 tablet by mouth once as needed SUMAtriptan (IMITREX) 50 mg tablet Indications: Migraine without aura and without status migrainosus, not intractable Take 1 tablet (50 mg total) by mouth once as needed for migraine for up to 15 doses. May repeat in 2 hours if unresolved. Do not exceed 200 mg in 24 hours. 15 tablet 0 09/03/2023 Active Start: 02-18-2022 End: 03-23-2023 Sumatriptan Succinate (Imitr ex) 50 mg Tablet Discontinued 50 MG PO As Directed February 18, 2022 12:00am March 23, 2023 1:58pm Start: 02-07-2022 take 1 dose by mouth once 50 m g, Oral, ONCE PRN, 1 dose, Starting on Thu02/07/22 at 1617, Until Thu02/07/22 at 2121, Migraine Syringe (Disposable) (3 sources) Start: 01-06-2024 Syringe (Dispo sable) Active 0 .Route January 06, 2024 12:00am As directed Start: 01-06-2024 Syringe (Dispo sable) Active 0 .ROUTE January 06, 2024 12:00am As directed 24 hr tolterodine tartrate 4 mg extended release oral capsule (20 sources) Cholinergic Muscarinic Antagonist Start: 08-29-2021 End: 01-06-2024 take 1 capsule by mouth once daily tolterodine 4 mg Cap-ER 4 mg = 1 cap(s), Oral, Daily, # 30 cap(s), Refills(s) 11, Pharmacy: [facility] 1155, 175, cm, 03/20/23 9:07:00 EDT, Height/Length [...] Start: 11-19-2021 take 1 capsule by mo [facility] once daily topiramate oral capsule,sprinkle,ER 24hr 100 mg 11/19/2021 take 1 capsule (100 mg) by oral route once daily Start: 02-07-2019 End: 11-20-2022 take 200 mg by mouth twice daily Topiramate Discontinued 200 MG PO Twice daily February 17, 2019 12:00am August 29, 2021 10:38am Start: 07-07-2018 End: 01-06-2024 take 1 mg by mouth twice daily topiramate 100 mg Tab mg tab(s), Oral, BID, Refills(s) 0 Start Date: 01/16/23 Status: Ordered Comment on above: [facility] traMADol hydrochloride 50 mg oral tablet (20 sources) Opioid Agonist Start: 01-06-2024 End: 02-10-2024 take 50 mg by mouth twice daily Tramadol Active 50 MG PO Twice daily 60 February 10, 2024 1:40pm Start: 11-16-2023 End: 03-15-2024 take 1 tablet by mouth every six hours as needed for pain traMADoL (ULTRAM) 50 mg tablet Indications: Spinal stenosis of lumbar region with neurogenic claudication Take 1 tablet (50 mg total) by mouth every 6 (six) hours as needed for pain for up to 120 days. 120 tablet 3 11/16/2023 03/15/2024 Active Start: 09-02-2023 take 1 tablet by brendan th every twelve hours traMADol HCl 50 MG 1 tablet as needed Orally twice a day for 30 days Aug, Active Start: 05-19-2023 take 1 tablet by brendan th every twelve hours traMADol HCl 50 MG 1 tablet as needed Orally twice a day for 30 days May, Active Start: 02-08-2022 traMADol (ULTR AM) tablet 50 mg Start: 02-17-2019 End: 10-14-2019 Tramadol Discontinued 100 MG PO As Directed February 17, 2019 12:00am October 14, 2019 11:27am 24 hr venlafaxine 75 mg extended release oral capsule (20 sources) Serotonin and Norepinephrine Reuptake Inhibitor Start: 01-06-2024 take 150 mg by mouth once daily Venlafaxine Active 150 MG PO Daily January 06, 2024 12:00am Start: 11-16-2023 End: 11-15-2024 take 1 capsule by mouth every twenty-four hours in the morning venlafaxine XR (EFFEXOR-XR) 150 mg 24 hr capsule Indications: Anxiety Take 1 capsule (150 mg total) by mouth in the morning. 90 capsule 3 11/16/2023 11/15/2024 Active Start: 03-23-2023 End: 01-06-2024 take 75 mg by mouth once daily Venlafaxine Discontinue d 75 MG PO Daily March 23, 2023 12:00am January 06, 2024 4:10pm Start: 03-23-2023 End: 03-23-2023 take 75 mg by mouth once daily Venlafaxine Discontinue d 75 MG PO Daily March 23, 2023 12:00am March 23, 2023 3:15pm Start: 01-16-2023 venlafaxine 37 .5 mg Cap-ER Refills(s) 0 Start Date: 01/16/23 Status: Ordered Start: 01-09-2023 End: 11-16-2023 take 1 capsule by mouth every twenty-four hours in the morning venlafaxine XR (EFFEXOR XR) 75 mg 24 hr capsule Indications: Current moderate episode of major depressive disorder without prior episode ([facility]) Take 1 capsule (75 mg total) by mouth in the morning. 90 capsule 3 01/09/2023 11/16/2023 Discontinued (Dose adjustment) zinc oxide 0.2 mg/mg topical ointment (20 sources) Start: 01-06-2024 Zinc Oxide Act av 1 APPLIC TOPICAL As Directed January 06, 2024 12:00am Start: 04-19-2023 End: 01-06-2024 Zinc Oxide Discontinued 1 AP PLIC TOPICAL Three times daily 11 17April 19, 2023 12:00am January 06, 2024 4:10pm Zinc Oxide 20 % as directed Externally Active Zinc Oxide 20 % as directed Externally Active Completed/Discontinued Medications Medication Drug Class(es) Dates Sig (Normalized) Sig (Original) acetaminophen 325 mg / oxyCODONE hydrochloride 5 mg oral tablet (5 sources) Opioid Agonist Start: 03-07-2022 End: 03-23-2023 take 1 tablet by mouth every six hours Oxycodone-Acetamino phen Discontinued 1 TAB PO Q6H 20 5 March 07, 2022 March 23, 2023 1:58pm Start: 02-13-2022 End: 02-20-2022 take 1 tablet by mouth every six hours as needed for pain oxyCODONE-acetaminophen (PERCOCET) 5-325 MG per tablet Indications: Lumbar stenosis with neurogenic claudication Take 1 tablet by mouth every 6 hours as needed for Pain for up to 7 days. 28 tablet 0 02/13/2022 02/20/2022 Active Start: 02-07-2022 oxyCODONE-acet aminophen (PERCOCET) 5-325 MG per tablet 1 tablet albuterol 0.83 mg/ml inhalation solution (20 sources) beta2-Adrenergic Agonist Start: 01-06-2024 End: 02-11-2024 take 3 mL by inhalation four times daily as needed Albuterol Sulfate Discontinued MG INHALATION January 06, 2024 12:00am February 11, 2024 8:17am FreeTextSi mL prefilled vial Inhalation qid prn; Note: Source Status: Taking; Refills: 1; Provider: Leyda Hinkle Start: 03-23-2023 End: 04-19-2023 take 2.5 mg by inhalation four times daily Albuterol Sulfate Discontinued 2.5 MG INHALATION Four times daily March 23, 2023 12:00am April 19, 2023 8:43am Start: 02-07-2022 1 puff, Inhala tion, PRN, Starting on Thu02/07/22 at 1617, Until Discontinued, Wheezing Initiate RT Bronchodilator Protocol: Yes Start: 11-08-2019 Albuterol Sulf ate 1.25 mg/3 mL INHALATION nebulizer solution Use 1 Ampule via nebulizer every 6 hours as needed for Wheezing/Shortness of Breath. 0 11/08/2019 Active Start: 02-17-2019 End: 03-07-2022 take 1.25 mg by inhalation four times daily Albuterol Sulfate Discontinued 1.25 MG INHALATION Four times daily February 17, 2019 12:00am March 07, 2022 9:03am Start: 02-06-2011 Albuterol Sulf ate (2.5 MG/3ML) [...] needed for wheezing/shortness of breath. amitriptyline hydrochloride 100 mg oral tablet (6 sources) Tricyclic Antidepressant Start: 2018 End: 2020 take 100 mg by mouth once daily at bedtime Amitriptyline Discontinued 100 MG PO Daily at bedtime February 17, 2019 12:00am August 29, 2021 10:34am Start: 10-22-2011 End: 11-20-2022 take 2 tablets by mouth [...] Platelet Aggregation Inhibitor, Nonsteroidal Anti-inflammatory Drug Start: 05-04-20 End: 11-20-19 take 1 tablet by mouth twice daily aspirin, enteric coated (ASPIRIN, ENTERIC COATED) 81 mg EC tablet Take 1 tablet by mouth twice daily. 84 tablet 0 05/04/2020 11/20/2022 Discontinued Comment on above: Take 1 tablet by brendan twice daily. Balsam Keesha-[place] Oil (3 sources) Start: 03-07-20 End: 03-23-20 Balsam [place] Oil Discontinued 1 APPLIC TOPICAL Three times daily 60 30 March 07, 2022 12:00am March 23, 2023 1:58pm benzocaine 6 mg / menthol 10 mg oral lozenge (2 sources) Standardized Chemical Allergen Start: 12-06-19 benzocaine-menthol (CHLORASEPTIC) 6-10 mg lozenges Use 1 Lozenge as instructed every 2 hours as needed. 18 Each 0 12/06/2022 Active Comment on above: Use 1 Lozenge as ins tructed every 2 hours as needed. betamethasone 0.5 mg/ml / clotrimazole 10 mg/ml topical cream (3 sources) Azole Antifungal, Corticosteroid End: 11-20-19 clotrimazole-betamet hasone (LOTRISONE) cream Apply to affected area twice daily. 0 11/20/2022 Discontinued Comment on above: Apply to affected ar ea twice daily. bisacodyl 5 mg delayed release oral tablet (2 sources) Stimulant Laxative Start: 02-08-20 take 5 mg by mouth once daily 5 mg, Oral, DAILY, First dose on Thu02/07/22 at 1645, Until Discontinued Do not crush or break. Post-op Start: 02-07-2022 take 10 mg rectal ro [place] once daily as needed 10 mg, Rectal, DAILY PRN, Starting on Thu02/07/22 at 1617, Until Discontinued, Constipation First line therapy for constipation Post-op 120 actuat budesonide 0.16 mg/actuat / formoterol fumarate 0.0045 mg/actuat metered dose inhaler (20 sources) Corticosteroid, beta2-Adrenergic Agonist Start: 03-07-2022 End: 03-23-2023 take 1 puff(s) by inhalation twice daily Budesonide-Formoterol (Symbicort) 160-4.5 mcg/actuation Hfa Aerosol Inhaler Discontinued 2 PUFF INHALATION Twice daily 11 17March 07, 2022 9:01am March 23, 2023 1:58pm Start: 02-17-2019 End: 03-07-2022 take 1 puff(s) by inhalation twice daily Budesonide-Formoterol (Symbicort) 160-4.5 mcg/actuation Hfa Aerosol Inhaler Discontinued 2 PUFF INHALATION Twice daily February 17, 2019 12:00am March 07, 2022 9:02am Start: 04-28-2016 End: 11-20-2022 take 2 puff(s) [...] a day Not-Taking take 2 puff(s) by mo uth twice daily Symbicort 160-4.5 MCG/ACT Inhalation Aerosol INHALE 2 PUFFS TWICE DAILY. RINSE MOUTH AFTER USE. Quantity: 0 Refills: 0 Ordered: 16-Aug-2021 DO Active Comment on above: Inhale 2 Puffs as in structed twice daily. ceFAZolin (ANCEF) 2000 mg in sterile water 20 mL IV syringe (1 source) Start: 02-08-20 End: 02-09-20 2,000 mg, IntraVENous, EVERY 8 HOURS, 2 doses, First dose on Thu02/07/22 at 1845, Last dose on Thu02/08/22 at 0245 Antimicrobial Indications: Surgical Prophylaxis Administer over 5 mins. Post-op cosyntropin (CORTROSYN) injection 250 mcg (1 source) Start: 02-10-20 End: 02-10-20 cosyntropin (CORTROSYN) injection 250 mcg cyclobenzaprine hydrochloride 5 mg oral tablet (5 sources) Muscle Relaxant Start: 03-07-20 End: 03-23-20 take 5 mg by mouth three times daily Cyclobenzaprine Discontinued 5 MG PO Three times daily 90 March 07, 2022 12:00am March 23, 2023 1:58pm Start: 02-07-2022 End: 02-23-2022 take 1 tablet by mouth three times daily as needed for muscle spasms cyclobenzaprine (FLEXERIL) 10 MG tablet Take 1 tablet by mouth 3 times daily as needed for Muscle spasms 30 tablet 0 02/13/2022 02/23/2022 Active docusate sodium 100 mg oral capsule (20 sources) Start: 03-23-2023 End: 04-19-2023 take 100 mg by mouth at bedtime Docusate Sodium Discontinued 100 MG PO Bedtime March 23, 2023 12:00am April 19, 2023 8:43am Start: 06-27-2021 End: 03-07-2022 Docusate Sodium Discontinued 100 MG PO As Directed August 29, 2021 1:00am March 07, 2022 9:03am Start: 05-04-2020 End: 12-06-2022 take 1 capsule by mouth twice daily docusate sodium (COLACE) 100 mg capsule Indications: Rotator cuff syndrome of shoulder and allied disorders, unspecified laterality Take 1 capsule by mouth twice daily. 60 capsule 0 05/04/2020 12/06/2022 Discontinued Comment on above: Take 1 capsule by [facility] twice daily. docusate sodium 50 mg / sennosides, halfway 8.6 mg oral tablet (1 source) Start: [...] succin ate PF (SOLU-CORTEF) injection 100 mg HYDROmorphone hydrochloride 2 mg oral tablet (20 sources) Opioid Agonist Start: 03-23-2023 End: 04-19-2023 take 1 mg by mouth every six hours Hydromorphone Discontinued 1 MG PO Q6H March 23, 2023 12:00am April 19, 2023 8:43am Start: 01-16-2023 hydromorphone 2 mg Tab Refills(s) [...] as needed for up to 7 days. hydrOXYzine hydrochloride 50 mg oral tablet (6 sources) Antihistamine Start: 02-18-20 End: 08-29-20 take 100 mg by mouth once daily at bedtime Hydroxyzine Hcl Discontinued 100 MG PO Daily at bedtime February 17, 2019 12:00am August 29, 2021 10:35am Start: 05-26-2017 End: 11-20-2022 take 2 tablets [...] cc Start: 10-03-2017 Toradol per 15 mg Sep, 2 cc Start: 09-17-2017 Toradol per 15 mg Aug, 2 cc Start: 03-24-2017 Toradol per 15 [...] 01-18-2013 Toradol per 15 mg Jan, 2ml Lanolin Ccvvpek-Rc-D.Pet-[place] (Minerin Creme) Cream (3 sources) Start: 04-19-2023 End: 01-06-2024 Lanolin Wxiqwmi-Zr-U.Pet-[place] (Minerin Creme) Cream Discontinued 1 APPLIC TOPICAL Twice daily 11 17April 19, 2023 12:00am January 06, 2024 4:09pm lidocaine 0.04 mg/mg medicated patch (20 sources) Antiarrhythmi c, Amide Local Anesthetic Start: 04-19-2023 End: 01-22-2024 apply 1 dose topically once daily as needed Lidocaine Discontinued 1 PATCH TOPICAL Daily January 06, 2024 12:00am January 22, 2024 9:17am FreeTextSi patch as needed Externally Once a day; Note: Source Status: Taking; Provider: Leyda Hughes ( ) Start: 03-07-2022 End: 03-23-2023 apply 1 dose topically once daily Lidocaine (Lidocaine Pain Relief) 4 % Adhesive Patch,Medicated Discontinued 1 PATCH TOPICAL Daily March 07, 2022 12:00am March 23, 2023 1:58pm Start: 02-18-2022 End: 03-07-2022 apply 1 dose topically once daily Lidocaine Discontinued 1 PATCH TOPICAL Daily February 18, 2022 12:00am March 07, 2022 9:03am linaclotide 0.145 mg oral capsule (20 sources) Guanylate Cyclase-C Agonist Start: 02-17-2019 End: 03-23-2023 take 1 capsule by mouth once daily Linaclotide (Linzess) 145 mcg Capsule Discontinued 145 MCG PO Daily March 07, 2022 9:01am March 23, 2023 1:58pm Start: 10-15-2017 Linzess 145 14 5mcg one PO daily for 90 days Sep, Not-Taking Start: 10-15-2017 Linzess 145 14 5mcg one PO daily for 90 days Sep, Active Comment on above: Take 145 mcg by [...] Take if no BM > 48 hrs. melatonin 5 mg oral tablet (3 sources) Start: 3 End: 4 Melatonin Discontinued 5 MG PO 2300 0 April 19, 2023 12:00am January 06, 2024 4:09pm metFORMIN hydrochloride 500 mg oral tablet (20 sources) Biguanide Start: 2 End: 3 take 500 mg by mouth twice daily at mealtime Metformin Discontinued 500 MG PO Twice daily with meals 60 30 March 07, 2022 12:00am March 23, 2023 1:58pm Start: 02-17-2019 End: 11-20-2022 take 1000 mg by mouth twice daily at mealtime Metformin Discontinued 1000 MG PO Twice daily with meals February 17, 2019 12:00am March 07, 2022 9:03am take 1 tablet by brendan th every twelve hours at mealtime metFORMIN HCl - 500 MG Oral Tablet TAKE 1 TABLET EVERY 12 HOURS WITH FOOD. Quantity: 0 Refills: 0 Ordered: 16-Aug-2021 DO Active Comment on above: Take 1,000 mg by brendan th twice daily with meals. Mineral Oil-Isopropyl Myristat (Minerin) lotion (3 sources) Start: 01-06-2024 End: 02-11-2024 Mineral Oil-Isopropyl Myristat (Minerin) lotion Discontinued 1 APPLIC TOPICAL 3 to 4 times per day January 06, 2024 12:00am February 11, 2024 8:20am Start: 01-06-2024 Mineral Oil-Is opropyl Myristat (Minerin) lotion Active 1 APPLIC TOPICAL 3 to 4 times per day January 06, 2024 12:00am 24 hr mirabegron 50 mg extended release oral tablet (3 sources) beta3-Adrenergic Agonist Start: 02-17-2019 End: 10-14-2019 take 1 tablet by mouth once daily Mirabegron (Myrbetriq) 50 mg Tablet Extended Release 24 Hr Discontinued 50 MG PO Daily February 17, 2019 12:00am October 14, 2019 11:26am miSOPROStol 0.2 mg oral tablet (3 sources) Prostaglandin E1 Analog End: 11-20-2022 take 1 tablet by mouth [...] 0 Refills: 0 Ordered: 16-Aug-2021 DO Active MULTIVIT-MIN/FA/L YCOPEN/LUTEIN (CENTRUM SILVER ULTRA MEN'S ORAL) (3 sources) End: 11-20-2022 take 1 tablet by mouth once daily MULTIVIT-MIN/FA/LY COPEN/LUTEIN (CENTRUM SILVER ULTRA MEN'S ORAL) Take 1 tablet by mouth once daily. 0 11/20/2022 Discontinued take 1 tablet by brendan th once daily MULTIVIT-MIN/FA/LYCOPEN/LUTEIN (CENTRUM SILVER ULTRA MEN'S ORAL) Take 1 tablet by mouth once daily. 0 Active Comment on above: Take 1 tablet by brendan th once daily. Multivitamin preparation (3 sources) Start: 9 End: 3 take 1 tablet by mouth once daily in the morning Multivitamin Discontinued 1 TAB PO Every morning February 17, 2019 12:00am March 23, 2023 1:58pm multivitamin tablet (2 sources) take 1 tablet by mouth once daily multivitamin tablet take 1 tablet by oral route daily unsure of dose Multivitamins DX: 285.9 (20 sources) Start: 3 take 1 capsule by mouth once daily Multivitamins DX: 285.9 1 capsule Orally Once a day for 90 days Jul, Not-Taking Start: 08-15-2013 take 1 capsule by mo [facility] once daily Multivitamins DX: 285.9 1 capsule [...] alternating nostrils until medical assistance is available Needle (Disp) 26G X 5/8 (17 sources) Start: 02-23-2023 Needle (Disp) 26G X 5/8 as directed subq as directed February, Not-Taking/PRN Start: 02-23-2023 Needle (Disp) 26G X 5/8 as directed subq as directed February, Active nystatin 100 unt/mg topical powder (20 sources) Polyene Antifungal Start: 01-06-2024 End: 01-22-2024 Nystatin Discontinued 1 APPLIC TOPICAL Twice daily January 06, 2024 12:00am January 22, 2024 9:18am FreeTextSi application Externally Twice a day; Note: Source Status: Taking; Provider: Leyda Hughes ( ) Start: 04-19-2023 End: 01-06-2024 Nystatin (Nystop) 100,000 un it/gram Powder Discontinued 1 APPLIC TOPICAL Three times daily 11 17April 19, 2023 12:00am January 06, 2024 4:09pm Nystatin 289044 UNIT/GM 1 application Externally Twice a day Active Orange-3 Fatty Acids (3 sources) Start: 02-18-2022 End: 03-23-2023 take 1000 mg by mouth once daily in the morning Orange-3 Fatty Acids Discontinued 1000 MG PO Every morning February 18, 2022 12:00am March 23, 2023 1:58pm omeprazole 40 mg delayed release oral capsule (1 source) Proton Pump Inhibitor take 1 capsule by mouth once daily omeprazole (PRILOSEC) 40 mg capsule Take 40 mg by mouth once daily. 0 Active Comment on above: Take 40 mg by mouth once daily. ondansetron 4 mg oral tablet (20 sources) Serotonin-3 Receptor Antagonist Start: 03-23-2023 End: 01-06-2024 take 4 mg by mouth every eight hours Ondansetron Discontinued 4 MG PO Q8H March 23, 2023 12:00am January 06, 2024 4:09pm Start: 01-16-2023 ondansetron 4 mg Tab Refills(s) 0 Start Date: 01/16/23 Status: Ordered Start: 12-06-2022 take 1 tablet by brendan th every eight hours as needed ondansetron (ZOFRAN) 4 mg tablet Take 1 tablet by mouth every 8 hours as needed for nausea/vomiting. 21 tablet 0 12/06/2022 Active Start: 02-17-2019 End: 03-07-2022 take 1 tablet by mouth three times daily Ondansetron Hcl (Zofran) 4 mg Tablet Discontinued 4 MG PO Three times daily February 17, 2019 12:00am March 07, 2022 9:03am Start: 04-08-2018 End: 02-11-2024 take 2 tablets by mouth every six hours as needed Ondansetron Hcl Discontinued 4 MG PO January 06, 2024 12:00am February 11, 2024 8:21am FreeTextSi tablets Orally every 6 hours prn; Note: Source Status: RefillPRN; Refills: 1; Provider: Leyda Hinkle Start: 12-29-2017 End: 11-20-2022 take 1 tablet [...] as needed. Take 1 tablet by brendan th every 8 hours as needed for nausea/vomiting. 24 hr oxybutynin chloride 15 mg extended release oral tablet (3 sources) Cholinergic Muscarinic Antagonist End: 3 take 15 mg by mouth once daily OXYBUTYNIN CHLORIDE ORAL Take 15 mg by mouth once daily. 0 11/20/2022 Discontinued Comment on above: Take 15 mg by mouth once daily. oxyCODONE hydrochloride 5 mg oral tablet (5 sources) Opioid Agonist Start: 3 End: 4 take 5 mg by mouth every four hours Oxycodone Discontinued 5 MG PO Every 4 hours 42 7 April 19, 2023 January 06, 2024 4:09pm take 1 tablet by mouth every six hours oxyCODONE HCl 5 MG 1 tablet as needed Orally every 6 hrs Active pantoprazole 40 mg delayed release oral tablet (20 sources) Proton Pump Inhibitor Start: 04-19-2023 End: 02-11-2024 take 40 mg by mouth once daily Pantoprazole Discontinued 40 MG PO Daily January 06, 2024 12:00am February 11, 2024 8:21am Start: 08-29-2021 End: 03-23-2023 take 40 mg by mouth once daily in the morning Pantoprazole Discontinued 40 MG PO Every morning August 29, 2021 1:00am March 23, 2023 1:58pm Protonix 40 mg g ranules delayed-release packet [...] on above: Take 1 capsule by mo [facility] daily at bedtime. polyethylene glycol 3350 61167 mg powder for oral solution (20 sources) Osmotic Laxative Start: 02-07-2022 End: 01-22-2024 Polyethylene Glycol 3350 Discontinued 17 GM PO As Directed January 06, 2024 12:00am January 22, 2024 9:18am FreeTextSig: as directed Orally; Note: Source Status: Taking; Provider: Leyda Hughes ( ) Comment on above: Take 1 Packet by brendan once daily. Dissolve dose in 4 - [...] for Nausea/Vomiting. QUEtiapine 25 mg oral tablet (7 sources) Atypical Antipsychotic Start: 01-11-2020 End: 03-23-2023 take 1 tablet by mouth once daily at bedtime Quetiapine (Seroquel) 25 mg Tablet Discontinued 25 MG PO Daily at bedtime February 18, 2022 12:00am March 23, 2023 1:58pm Comment on above: Take 1 tablet by brendan every evening. raNITIdine 150 mg oral tablet (3 sources) Histamine-2 Receptor Antagonist Start: 02-17-2019 End: 08-29-2021 take 1 tablet by mouth once daily Ranitidine Hcl (Zantac) 150 mg Tablet Discontinued 150 MG PO Daily February 17, 2019 12:00am August 29, 2021 10:35am rOPINIRole 1 mg oral tablet (20 sources) Nonergot Dopamine Agonist Start: 01-06-2024 End: 02-11-2024 take 1 mg by mouth once daily at bedtime Ropinirole Discontinued 1 MG PO Daily at bedtime January 06, 2024 12:00am February 11, 2024 8:22am Start: 04-19-2023 End: 01-06-2024 take 0.5 mg by mouth once daily at bedtime Ropinirole Discontinued 0.5 MG PO Daily at bedtime April 19, 2023 12:00am January 06, 2024 4:10pm take 1 tablet by brendan th once daily at bedtime rOPINIRole HCl 1 MG 1 tablets 1 to 3 hours before bedtime Orally Once a day for 90 days Active sennosides, halfway 8.6 mg oral tablet (2 sources) Start: 12-06-2022 take 1 tablet by mouth twice daily senna (SENOKOT) 8.6 mg tab Take 1 tablet by mouth twice daily. 0 12/06/2022 Active Comment on above: Take 1 tablet by brendan th twice daily. sildenafil 100 mg oral tablet (20 sources) Phosphodiesterase 5 Inhibitor Start: 02-17-2019 End: 02-18-2022 take 1 tablet by mouth once daily Sildenafil (Viagra) 100 mg Tablet Discontinued 100 MG PO Daily February 17, 2019 12:00am February 18, 2022 3:50pm sildenafil 25 mg tablet unsure of dose Comment on above: Take 100 mg by mouth as needed. 50 ml sodium chloride 9 mg/ml injection [...] therapy. Post-op sucralfate 1000 mg oral tablet (6 sources) Aluminum Complex Start: 02-17-2019 End: 08-29-2021 take 1 tablet by mouth twice daily Sucralfate (Carafate) 1 gram Tablet Discontinued 1 GM PO Twice daily February 17, 2019 12:00am August 29, 2021 10:37am Start: 04-28-2016 End: 11-20-2022 take 1 tablet by mouth four times daily sucralfate (CARAFATE) 1 gram tablet Take 1 tablet by mouth four times daily. 0 04/28/2016 11/20/2022 Discontinued Comment on above: Take 1 tablet by brendan th four times daily. Syringe (Disposable) 3 ML (17 sources) Start: 02-23-2023 Syringe (Disposable) 3 ML as directed as directed as directed February, Not-Taking/PRN Start: 02-23-2023 Syringe (Dispo sable) 3 ML as directed as directed as directed February, Active tamsulosin hydrochloride 0.4 mg oral capsule (20 sources) alpha-Adrenergic Ching Start: 02-18-2022 End: 03-23-2023 take 2 capsules by mouth once daily at bedtime Tamsulosin (Flomax) 0.4 mg Capsule Discontinued 0.8 MG PO Daily at bedtime February 18, 2022 12:00am March 23, 2023 1:58pm Start: 02-07-2022 End: 02-12-2022 take 0.8 mg by mouth once daily 0.8 mg, Oral, NIGHTLY, First dose on Thu02/07/22 at 2100, Until Discontinued Do not crush or break. Start: 12-05-2021 End: 02-14-2022 take 1-2 capsules by mouth once daily Tamsulosin HCl 0.4 MG 1-2 capsules Orally Once a day for 90 days Nov, Not-Taking 1 ml testosterone cypionate 200 mg/ml injection (20 sources) Androgen Start: 02-10-2024 End: 02-11-2024 inject 60 mg by intramuscular injection two times weekly Testosterone Cypionate Discontinued 60 MG IM .COMPLEX February 10, 2024 12:00am February 11, 2024 8:23am 60 mg intramuscularly twice a week; Start: 01-06-2024 End: 01-22-2024 inject 0.3 mL by subcutaneous injection two times weekly Testosterone Cypionate Discontinued 0 SUBCUT .COMPLEX January 06, 2024 12:00am January 22, 2024 9:18am 0.3 ml subcutaneously; FreeTextSi.3ml subq twice a week; Note: Source Status: Not-Taking\[id number] vial; Refills: 0; Qty: 10 ml; Provider: Leyda Hinkle Start: 04-27-2023 inject 0.3 mL by sub cutaneous injection two times weekly Testosterone Cypionate 200 MG/ML 0.3ml subq twice a week 10ml vial Apr, Active Start: 04-27-2023 inject 0.3 mL by sub cutaneous injection two times weekly as needed Testosterone Cypionate 200 MG/ML 0.3ml subq twice a week 10ml vial Apr, Not-Taking/PRN Start: 02-23-2023 inject 0.3 mL by sub cutaneous injection two times weekly tiZANidine 4 mg oral tablet (6 sources) Central alpha-2 Adrenergic Agonist Start: 03-17-2018 End: 11-20-2022 Tizanidine Discontinued 4 MG PO As Directed February 17, 2019 12:00am August 29, 2021 10:37am Comment on above: Take 1 tablet by brendan th every 8 hours as needed. TAKES 2 TAB AT HS urea 400 mg/ml topical lotion (3 sources) End: 11-20-2022 urea (CARMOL) 40 % lotn Apply to affected area twice daily. 0 11/20/2022 Discontinued Comment on above: Apply to affected ar ea twice daily. valACYclovir 500 mg oral tablet (3 sources) Herpesvirus Nucleoside Analog DNA Polymerase Inhibitor, Herpes Simplex Virus Nucleoside Analog DNA Polymerase Inhibitor, Herpes Zoster Virus Nucleoside Analog DNA Polymerase Inhibitor Start: 02-18-2022 End: 02-18-2022 take 1 tablet by mouth once daily Valacyclovir (Valtrex) 500 mg Tablet Discontinued 500 MG PO Daily February 18, 2022 12:00am February 18, 2022 3:57pm vancomycin (VANCOCIN) 1,500 mg in dextrose 5 % 500 mL IVPB (1 source) Start: 02-08-2022 End: 02-08-2022 1,500 mg, IntraVENous, EVERY 12 HOURS, 1 dose, First dose on 02/08/22 at 0015 Antimicrobial Indications: Surgical Prophylaxis Post-op Payers Date Payer Category Payer Self-pay [id number] 2023 Unknown [id number] 2021 Medicare AETNA MEDICARE A ETNA MEDICARE HMO [id number] 2021-Present [phone] [address] [place] [address] [facility] [id number] 2019 Medicare [id number]. 1.13.159.2.7.3.6 [id number] 2004 Unknown 1959 Medicare [id number] 2.16.840.1.929270.3.441 1959 Medicare [id number] 1959 Unknown [id number] 1958 Unknown [id number] 2.16.840.1.811840.3.579.2.93 1958 Unknown [id number] 2.16.840.1.739410.3.579.2.93 1958 Unknown [id number] 2.16.840.1.933309.3.579.2.93 1958 Unknown [id number] 2.16.840.1.163458.3.579.2.593 1958 Unknown [id number] 2.16.840.1.170187.3.579.2.593 1958 Unknown [id number] 2.16.840.1.961056.3.579.2.593 1958 Unknown [id number] 2.16.840.1.944250.3.579.2.593 1958 Unknown [id number] 2.16.840.1.243808.3.579.2.593 1958 Unknown [id number] 2.16.840.1.045969.3.579.2.1286 1958 Unknown [id number] 2.16.840.1.864074.3.579.2.1286 1958 Unknown [id number] 2.16.840.1.058493.3.579.2.1286 1958 Unknown [id number] 2.16.840.1.018682.3.579.2.1286 1958 Unknown [id number] 2.16.840.1.255348.3.579.2.1286 1958 Unknown [id number] 2.16.840.1.546712.3.579.2.727 1958 Unknown [id number] 2.16.840.1.929574.3.579.2.727 1958 Unknown [id number] 2.16.840.1.391716.3.579.2.727 1958 Unknown [id number] 2.16.840.1.416462.3.579.2.727 1958 Unknown [id number] 2.16.840.1.517828.3.579.2.727 1958 Unknown [id number] 2.16.840.1.682739.3.579.2.727 1958 Unknown [id number] 2.16.840.1.393457.3.579.2.727 1958 Unknown [id number] 2.16.840.1.616630.3.579.2.72 1958 Unknown [id number] 2.16.840.1.355421.3.579.2.72 1958 Unknown [id number] 2.16.840.1.372093.3.579.2. 1958 Unknown [id number] 2.16.840.1.868533.3.579.2.72 1958 Unknown [id number] 2.16.840.1.292011.3.579.2 1958 Unknown [id number] 2.16.840.1.160087.3.579.2 1958 Unknown [id number] 2.16.840.1.399247.3.579.2. 1958 Unknown [id number] 2.16.840.1.616855.3.579.272 1958 Unknown [id number] 2.16.840.1.085161.3.579.2 1958 Unknown [id number] 2.16.840.1.710475.3.579.2 1958 Unknown [id number] 2.16.840.1.935137.3.579.2. 1958 Unknown [id number] 2.16.840.1.863940.3.579.2.72 1958 Unknown [id number] 2.16.840.1.062608.3.579.2 1958 Unknown [id number] 2.16.840.1.554977.3.579.2.72 1958 Unknown [id number] 2.16.840.1.123490.3.579.2 Unknown [id number] 2.16.840.1.994723.3.579.2.531 Plan of Treatment Date Care Activity Detail Author Start: 11-15-2028 DTaP,Tdap and Td Vaccines (3 - Td or Tdap) DTaP,Tdap and Td Vaccines (3 - Td or Tdap) [facility] Start: 11-15-2028 DTaP/Tdap/Td vaccine (3 - Td or Tdap) DTaP/Tdap/Td vaccine (3 - Td or Tdap) [facility] Start: 11-15-2028 Urine microalbumin profile DTAP,TDAP,TD (3 - Td or Tdap) [facility] Start: 08-11-2026 Colonoscopy COLONOSCOPY [facility] Start: 08-11-2026 COLORECTAL CANCER SCREENING COLORECTAL CANCER SCREENING [facility] Start: 01-23-2025 Diabetes screen Diabetes screen [facility] Start: 11-16-2024 Depression Screening Depression Scre ening [facility] Start: 11-16-2024 Tobacco Screening Tobacco Screening [facility] Start: 07-02-2024 Adult BMI Screening Adult BMI Screen ing [facility] Start: 07-02-2024 Tobacco Screening Tobacco Screening [facility] Start: 04-26-2024 ambulatory Ambulatory Facility:[facility] Start: 02-11-2024 [facility] Start: 01-28-2024 End: 01-28-2024 Patient encounter procedure 01/28/2024 9:20 AM EDT Office Visit [facility] [address] [place] [address] Heidy Marin MD [address] [place] [address] [facility] Start: 01-14-2024 End: 01-14-2024 Patient encounter procedure 01/14/2024 9:50 AM EDT Office Visit [facility] [address] [place] [address] Sergio Anguiano MD [address] [place] [phone] [facility] Start: 11-29-2023 Hepatitis B surface antibody level LDL CHOLESTEROL [facility] Start: 11-16-2023 End: 11-16-2023 Patient encounter procedure 11/16/2023 1:00 PM EST Office Visit [facility] [address] [place] [id number] Loere Linda, FARRAH-HAND CEMENTER [address] [place] [address] [facility] Start: 2023 Fall Risk Screening Fall Risk Screen ing [facility] Start: 2023 PNEUMOCOCCAL (3 - PP SV23 if available, else PCV20) PNEUMOCOCCAL (3 - PPSV23 if available, else PCV20) [facility] Start: 2023 PNEUMOCOCCAL (3 - PP SV23 or PCV20) PNEUMOCOCCAL (3 - PPSV23 or PCV20) [facility] Start: 2023 Pneumococcal 0-64 ye ars Vaccine (3 - PPSV23 or PCV20) Pneumococcal 0-64 years Vaccine (3 - PPSV23 or PCV20) [facility] Start: 08-11-2023 Adult BMI Follow Up Plan Adult BMI Follow Up Plan [facility] Start: 08-11-2023 Depression Screening Depression Scre ening [facility] Start: 06-19-2023 COVID-19 Vaccine ( season) COVID-19 Vaccine ( season) [facility] Start: 06-19-2023 Influenza vaccination [facility] Start: 10-19-2022 DEPRESSION ASSESSMENT DEPRESSION ASS ESSMENT [facility] Start: 01-01-2022 COVID-19 VACCINE (5 - Booster for Moderna series) COVID-19 VACCINE (5 - Booster for Moderna series) [facility] Start: 01-01-2022 COVID-19 VACCINE (6 - Moderna series) COVID-19 VACCINE (6 - Moderna series) [facility] Start: 10-25-2021 Adult depression screening assessment DEPRESSION SCREENING [facility] Start: 10-24-2021 FUV, Provider: Ren Watson, Status: Pen, Time: 10:10 AM FUV, Provider: Ren Watson, Status: Pen, Time: 10:10 AM [facility] [address] [place] Work Phone: Start: 09-05-2021 STRESS NUC, Provider : BRIGITTE HHVI NUCLEAR 01,[id number], Status: Pen, Time: 12:00 PM STRESS NUC, Provider: BRIGITTE HHVI NUCLEAR 01,[id number], Status: Pen, Time: 12:00 PM [facility] Work Phone: Start: 10-25-2020 Hemoglobin A1c/Hemoglobin.total in Blood HBA1C [facility] Start: 08-10-2020 ANNUAL PCP TEAM 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 MARYAM DISEASE VISIT ANNUAL PCP TEAM CHRONIC DISEASE VISIT [facility] Start: 03-16-2019 Administration of varicella zoster vaccine Zoster (Shingles) Vaccine (2 of 2) [facility] Start: 03-16-2019 Shingles vaccine (2 of 2) Shingles vaccine (2 of 2) [facility] Start: 03-16-2019 SHINGRIX VACCINE (2 of 2) SHINGRIX VACCINE (2 of 2) [facility] Start: 04-27-2018 3 comp foot exam completed DIABETIC FOOT EXAM [facility] Start: 2013 Influenza vaccination LUNG CANCER [facility] Start: 2013 PROSTATE CANCER SCREENING DISCUSSION PROSTATE CANCER SCREENING DISCUSSION [facility] Start: 2008 Influenza vaccination LUNG CANCER [facility] Start: 2008 Screening for malign ant neoplasm of lung Low dose CT lung screening [facility] Start: 2003 COLOGUARD (FIT-DNA) COLOGUARD (FIT-D NA) [facility] Start: [address] COLONOGRAPHY [facility] Start: 2003 FECAL OCCULT BLOOD FECAL OCCULT BLOO D [facility] Start: 2003 Screening for malign ant neoplasm of colon [facility] Start: 2003 SIGMOIDOSCOPY SIGMOIDOSCOPY [facility] Start: 1988 Zoledronic acid therapy ALPHA- 1 ANTITRYPSIN DEFICIENCY SCREENING [facility] Start: 1976 BP CONTROLLED (<130/80) BP CONTROLLE D (<130/80) [facility] Start: 1976 Diabetic foot examination Diabetic Foot Exam [facility] Start: 1976 Hepatitis B surface antibody level LDL CHOLESTEROL [facility] Start: 1976 HEPATITIS C SCREENING HEPATITIS C [facility] Start: 1976 Hepatitis C screening Hepatitis C [facility] Start: 1976 HIV SCREENING HIV SCREENING [facility] Start: 1976 SPIROMETRY SPIROMETRY [facility] Start: 1973 HIV screening HIV screen [facility] Start: 1970 Depression Screen Depression Screen [facility] Start: 1968 Hepatitis B screening URINE ALBUMIN:CREATININE RATIO [facility] Start: 1968 Hepatitis C antibody , confirmatory test DILATED RETINAL EXAM [facility] Start: 1968 Lipid panel Lipids [facility] Start: 1958 Annual Wellness Visi t (AWV) Annual Wellness Visit (AWV) [facility] Start: 1958 Glaucoma screening Diabetic Op hthalmology Exam [facility] [employer] Start: 1958 Tobacco Counseling Tobacco Counselin g [facility] Comprehensive metabo lic 2000 panel - Serum or Plasma [facility] CT Abdomen and Pelvi s W contrast IV [facility] Glucose [Mass/volume ] in Serum or Plasma [facility] Work Phone: Comment on above: 4X Daily (AC & HS) u ntil discontinued starting 02/11/2022, 27 completed As Needed until disc ontinued starting 02/11/2022 Home BIPAP or CPAP Home BIPAP or CPAP Respiratory Care Routine QHS until discontinued starting 02/16/2022 Note Phone: Comment on above: QHS until discontinu ed starting 02/16/2022 Oxygen therapy [[facility] Data Set] Initiate Oxygen Therapy Protocol Respiratory Care Routine As Needed until discontinued starting 02/07/2022 [facility] Phone: Comment on above: As Needed until disc ontinued starting 02/07/2022 Patient Education Hemorrhoids (DC) [facility] Work Phone: [facility] Problems Active Problems Problem Classification Problem Date Documented Da te Episodic/Chronic Administrative/social admission (6 sources) Other reduced mobility; Translations: [COVID-19 long hauler manifesting chronic decreased mobility and endurance] 03-24-2023 Episodic Allergic reactions (2 sources) Contact dermatitis and other eczema due to other specified agents; Translations: [Irritant contact dermatitis due to fecal incontinence] Onset: 11-24-2022 12-05-2022 Episodic Anxiety disorders (20 sources) Other specified anxiety disorders; Translations: [Anxiety] Onset: 11-16-2023 01-15-2023 Chronic Aortic; peripheral; and visceral artery aneurysms (2 sources) Aortic aneurysm; Translations: [Dissection of abdominal aorta] Onset: 01-28-2024 Chronic Asthma (20 sources) Unspecified asthma, uncomplicated; Translations: [Asthma] Onset: 12-07-2017 12-07-2017 Chronic Bacterial infection; unspecified site (20 sources) Methicillin resistant Staphylococcus aureus infection, unspecified site; Translations: [Methicillin resistant Staphylococcus aureus] Onset: 01-27-2022 Resolved: 01-27-2022 Episodic Calculus of urinary tract (20 sources) Calculus of kidney; Translations: [Personal history of urinary calculi] Onset: 01-27-2022 Resolved: 05-21-2022 Episodic Cancer of esophagus (3 sources) Malignant tumor of esophagus; Translations: [Malignant neoplasm of esophagus, unspecified] 02-19-2022 Chronic Chronic obstructive pulmonary disease and bronchiectasis (20 [...] Episodic Coronary atherosclerosis and other heart disease (20 sources) Coronary atherosclerosis Onset: 02-14-2022 03-30-2023 Chronic Deficiency and other anemia (3 sources) [...] 2 diabetes mellitus with diabetic nephropathy] Onset: 02-08-2021 01-15-2023 Chronic Diabetes mellitus without complication (20 sources) Diabetes mellitus; Translations: [Diabetes mellitus without mention of complication, type II or unspecified type, not stated as uncontrolled] Onset: 04-15-2017 Resolved: 01-15-2023 05-03-2020 Chronic Diabetes mellitus without complication (4 sources) Hyperglycemia, unspecified; Translations: [Other abnormal glucose] Episodic E Codes: Fall (20 sources) Fall; Translations: [Unspecified fall, initial encounter] Onset: 11-20-2022 12-05-2022 Episodic Essential hypertension (20 sources) Essential (primary) hypertension; Translations: [Essential hypertension] Onset: 12-07-2017 05-03-2020 Chronic Gangrene (1 source) Atherosclerosis of [place] arteries of extremities with gangrene, bilateral legs; Translations: [Atherosclerosis of [place] arteries of extremities with gangrene, bilateral legs] Onset: 01-28-2024 Chronic Genitourinary symptoms and ill-defined conditions (20 sources) Urinary incontinence; Translations: [Unspecified urinary incontinence] Onset: 10-15-2022 Chronic Genitourinary symptoms and ill-defined conditions (20 sources) Urgent desire to urinate; Translations: [Urgency of urination] Onset: 07-31-2006 07-31-2006 Episodic Headache; including migraine (3 sources) Frequent headache; Translations: [Frequent headaches] 03-24-2023 Episodic Hyperplasia of prostate (20 sources) Benign prostatic hypertrophy with outflow obstruction; Translations: [Benign prostatic hyperplasia with lower urinary tract symptoms] Onset: 08-12-2010 Resolved: 01-15-2023 08-12-2010 Chronic Immunizations and screening for infectious disease (16 sources) Needs influenza immunization; Translations: [Encounter for immunization] Episodic Intestinal obstruction without hernia (3 sources) Intestinal obstruction co-occurrent and due to decreased peristalsis; Translations: [Ileus, unspecified] 02-19-2022 Episodic Intracranial injury (3 sources) Concussion with loss of consciousness; Translations: [Concussion with loss of consciousness of unspecified duration, initial encounter] 05-28-2020 Episodic Miscellaneous mental health disorders (6 sources) Psychosexual dysfunction; Translations: [Unspecified sexual dysfunction not due to a substance or known physiological condition] Onset: 07-31-2006 07-31-2006 Chronic Mood disorders (20 sources) Major depressive disorder, single episode, unspecified; Translations: [Depression] Onset: 11-20-2022 01-16-2023 Chronic Nausea and vomiting (8 sources) Nausea; Translations: [Nausea] Onset: 05-21-2022 Resolved: 05-21-2022 Episodic Neoplasms of unspecified nature or uncertain behavior (20 sources) Monoclonal gammopathy of uncertain significance; Translations: [Monoclonal gammopathy] Onset: 09-15-2018 09-15-2018 Chronic Nonspecific chest pain (5 sources) Chest pain; Translations: [Chest pain, unspecified] Episodic Nutritional deficiencies (3 sources) Deficiency of macronutrients; Translations: [Unspecified severe protein-calorie malnutrition] Onset: 11-13-2022 12-05-2022 Chronic Open wounds of extremities (3 sources) Amputated toe; Translations: [Complete traumatic amputation of one unspecified lesser toe, initial encounter] 01-06-2024 Chronic Osteoarthritis (20 sources) Unilateral primary osteoarthritis, right knee; Translations: [Unspecified osteoarthritis, unspecified site] Onset: 01-28-2017 Resolved: 05-21-2022 07-01-2017 Chronic Other acquired deformities (2 sources) Other kyphoscoliosis and scoliosis Chronic Other aftercare (2 sources) Patient encounter status; Translations: [Encounter for palliative care] Onset: 12-06-2022 12-06-2022 Episodic Other aftercare (1 source) Other snf (current) drug therapy; Translations: [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 THERAPY] Onset: 02-13-2023 Episodic Other [...] Translations: [Orthostatic hypotension] Onset: 11-13-2022 Episodic Other circulatory disease (3 sources) Low blood pressure; Translations: [Hypotension, unspecified] 02-19-2022 Episodic Other congenital anomalies (13 sources) Microstomia; Translations: [Microstomia] Onset: 08-09-2010 08-09-2010 Chronic Other connective tissue disease (1 source) Presence of right artificial knee joint; Translations: [Presence of right artificial knee joint] Onset: 07-01-2017 Chronic Other connective tissue disease (20 sources) History of repair of hip joint; Translations: [Presence of unspecified artificial hip joint] Chronic Other connective tissue disease (12 sources) History of left shoulder arthroplasty; Translations: [...] Onset: 12-03-2021 Episodic Other connective tissue disease (20 sources) Muscle atrophy; Translations: [Muscle wasting and atrophy, not elsewhere classified, multiple sites] 01-06-2024 Episodic Other diseases of bladder and urethra (20 sources) Neurogenic bladder; Translations: [Neuromuscular dysfunction of bladder, unspecified] 02-19-2022 Chronic Other diseases of bladder and urethra (4 sources) Neuromuscular dysfunction of bladder, unspecified; Translations: [Neurogenic bladder NOS] Chronic Other diseases of bladder and urethra (1 source) Disorder of bladder; Translations: [Other specified disorders of bladder] Onset: 03-15-2024 Chronic Other diseases of kidney and ureters (2 sources) Urinary tract obstruction; Translations: [Other obstructive and reflux uropathy] Onset: 07-17-2023 Episodic Other endocrine disorders (20 sources) Testicular hypofunction Onset: 07-09-2022 01-15-2023 Chronic Other endocrine disorders (20 sources) Hypotestosteronism; Translations: [Endocrine disorder, unspecified] 01-06-2024 Episodic Other endocrine disorders (3 sources) Endocrine disorder, unspecified; Translations: [Unspecified endocrine disorder] Episodic Other gastrointestinal disorders (19 sources) Neurogenic bowel; Translations: [Neurogenic bowel, not elsewhere classified] 02-19-2022 Chronic Other gastrointestinal disorders (4 sources) Neurogenic bowel, not elsewhere classified; Translations: [Neurogenic bowel] Chronic Other gastrointestinal disorders (20 sources) Constipation; Translations: [Constipation, unspecified] 01-06-2024 Episodic Other gastrointestinal disorders (4 sources) Constipation, unspecified Onset: 08-27-2021 Resolved: 05-21-2022 Episodic Other gastrointestinal disorders (20 sources) Complete fecal incontinence; Translations: [Full incontinence of feces] Episodic Other gastrointestinal disorders (6 sources) Full incontinence of feces; Translations: [Full incontinence of feces] Onset: 10-15-2022 Episodic Other gastrointestinal disorders (5 sources) Diarrhea, unspecified; Translations: [Diarrhea] Episodic Other gastrointestinal disorders (6 sources) Other fecal abnormalities; Translations: [Nonspecific abnormal findings in stool contents] Episodic Other gastrointestinal disorders (3 sources) Diarrhea; Translations: [Diarrhea, unspecified] 01-22-2024 Episodic Other gastrointestinal disorders (3 sources) Incontinence of feces; Translations: [Full incontinence of feces] 01-22-2024 Episodic Other gastrointestinal disorders (3 sources) Mucus in stool; Translations: [Other fecal abnormalities] 01-22-2024 Episodic Other gastrointestinal disorders (1 source) Change in bowel habit; Translations: [Change in bowel habit] Onset: 02-11-2024 Episodic Other hereditary and degenerative nervous system conditions (6 sources) Essential tremor; Translations: [Essential tremor] Onset: 10-27-2017 10-27-2017 Chronic Other hereditary and degenerative nervous system conditions (17 sources) Restless legs; Translations: [Restless legs syndrome] 01-06-2024 Chronic Other hereditary and degenerative nervous system conditions (1 source) Restless legs syndrome Chronic Other hereditary and degenerative nervous system conditions (7 sources) Multiple system atrophy; Translations: [Multi-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] Onset: 02-13-2021 02-13-2021 Chronic Other lower respiratory disease (5 sources) Dyspnea; Translations: [Other respiratory abnormalities] Episodic Other lower respiratory disease (1 source) Shortness of breath; Translations: [SOB (shortness of breath)] Onset: 11-20-2022 Episodic Other male genital disorders (13 sources) Secondary erectile dysfunction; Translations: [Male erectile dysfunction, unspecified] Onset: 10-08-2007 10-08-2007 Chronic Other male genital disorders (20 sources) Impotence of organic origin; Translations: [Male erectile dysfunction, unspecified] Chronic Other male genital disorders (3 sources) Male erectile dysfunction, unspecified; Translations: [Erectile dysfunction] 01-06-2024 Chronic Other nervous system disorders (20 sources) Chronic pain syndrome; Translations: [Chronic pain syndrome] Onset: 04-15-2017 04-15-2017 Chronic Other nervous system disorders (13 sources) Complex regional pain syndrome type I; Translations: [Complex regional pain syndrome I, unspecified] Onset: 03-16-2018 03-17-2018 Chronic Other nervous system disorders (20 sources) Neuropathy; Translations: [Polyneuropathy, unspecified] 01-06-2024 Chronic Other nervous system disorders (6 sources) Polyneuropathy, unspecified Onset: 10-23-2021 Resolved: 06-17-2022 Chronic Other nervous system disorders (17 sources) Disorder of autonomic nervous system; Translations: [Disorder of the autonomic nervous system, unspecified] 03-24-2023 Chronic Other nervous system disorders (1 source) Disorder of the autonomic nervous system, unspecified Chronic Other nervous system disorders (4 sources) Chronic pain syndrome; Translations: [Chronic pain syndrome] Chronic Other nervous system disorders (7 sources) Walking difficulty due to ankle and foot; Translations: [Difficulty in walking, not elsewhere classified] Onset: 02-08-2021 02-08-2021 Chronic Other nervous system disorders (4 sources) Anesthesia of skin Episodic Other nervous system disorders (3 sources) Other disturbances of skin sensation Onset: 11-19-2021 Episodic Other nervous system disorders (20 sources) Abnormal involuntary movement; Translations: [Tremor, unspecified] Episodic Other nervous system disorders (20 sources) Ataxia; Translations: [Ataxia, unspecified] 01-06-2024 Episodic Other nervous system disorders (3 sources) Finding of hand region; Translations: [Tremor, unspecified] 01-06-2024 Episodic Other non-epithelial cancer of skin (20 sources) Malignant tumor of lip; 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] Onset: 05-11-2007 10-18-2019 Episodic Other nutritional; endocrine; and metabolic disorders (20 sources) Obesity; Translations: [Obesity, unspecified] 01-06-2024 Chronic Other nutritional; endocrine; and metabolic disorders (13 sources) Obese class I; Translations: [Obesity, unspecified] [...] agitans] Onset: 04-13-2019 Resolved: 05-21-2022 11-08-2019 Chronic Parkinson`s disease (1 source) Parkinson`s disease; Translations: [Parkinson's disease without dyskinesia, without mention of fluctuations] Onset: 02-13-2021 Pleurisy; pneumothorax; pulmonary collapse (20 sources) Atelectasis; Translations: [Atelectasis] Episodic Residual codes; unclassified (3 sources) Sleep apnea, unspecified; Translations: [SLEEP APNEA UNSPECIFIED] Onset: 02-13-2023 Chronic Residual codes; unclassified (17 sources) Postprocedural state finding; Translations: [Presence of [...] unclassified (20 sources) Insomnia; Translations: [Insomnia, unspecified] 01-06-2024 Episodic Residual codes; unclassified (2 sources) At risk of delirium; Translations: [Other specified personal risk factors, not elsewhere classified] Onset: 11-21-2022 12-05-2022 Episodic Residual codes; unclassified (3 sources) History of operative procedure on lumbar spinal structure; Translations: [Other specified postprocedural states] 02-19-2022 Episodic Residual codes; unclassified (1 source) Pain, unspecified; Translations: [Pain, unspecified] Onset: 03-16-2024 Episodic Screening and history of mental health and substance abuse codes (2 sources) Personal history of nicotine dependence; Translations: [PERSONAL HISTORY OF NICOTINE DEPEND] Onset: 12-22-2022 Episodic Spondylosis; intervertebral disc disorders; other back problems (20 sources) Displacement of thoracic intervertebral disc without myelopathy; Translations: [Other intervertebral disc displacement, thoracic region] Onset: 03-06-2004 Resolved: 10-23-2021 03-06-2004 Chronic Substance-related disorders (20 sources) Smoker; Translations: [Tobacco use disorder] Onset: 03-17-2018 11-08-2019 Chronic Comment on above: 6 ciggs daily; Unclassified (20 sources) Parkinson's disease; Translations: [Parkinson's disease] Onset: 02-03-2021 11-09-2023 Chronic Unclassified (3 sources) Unknown / UNK(Unknown) Onset: 05-30-2016 Unclassified (12 sources) Disorder of rotator cuff; Translations: [Rotator cuff syndrome of shoulder and allied disorders] Onset: 12-10-2004 08-07-2016 Unclassified (1 source) NO SHOW Unclassified (1 source) CONTACT W/AND (SUSP) EXPOS COVID-19; Translations: [CONTACT W/AND (SUSP) EXPOS COVID-19] Onset: 11-13-2022 Unclassified (1 source) LE Pain and Swelling Onset: 01-28-2024 Urinary tract infections (20 sources) Acute cystitis; Translations: [Acute cystitis without hematuria] Onset: 04-27-2020 04-27-2020 Episodic Viral infection (2 sources) Disease caused by 2019-nCoV; Translations: [COVID-19] Onset: 11-20-2022 12-05-2022 Episodic Past or Other Problems Problem Classification Problem Date Documented Da te Episodic/Chronic Acquired foot deformities (10 sources) Right foot drop; Translations: [Foot drop, right foot] Onset: 08-29-2020 08-29-2020 Episodic Deficiency and other anemia (6 sources) Iron deficiency anemia secondary to inadequate dietary iron intake; Translations: [Other iron deficiency anemias] Onset: 06-16-2018 06-16-2018 Episodic Deficiency and other anemia (13 sources) Megaloblastic anemia due to vitamin B>12< deficiency; Translations: [Other megaloblastic anemias, not elsewhere classified] Onset: 12-30-2019 12-30-2019 Episodic Deficiency and other anemia (7 sources) Iron deficiency anemia due to dietary causes; Translations: [Other iron deficiency anemias] Onset: 06-16-2018 10-01-2021 Episodic Disorders of lipid metabolism (20 sources) Hyperlipidemia; Translations: [Other and unspecified hyperlipidemia] Onset: 12-07-2017 Resolved: 01-15-2023 05-03-2020 Chronic Esophageal disorders (20 sources) Gastro-esophageal reflux disease without esophagitis; 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] Onset: 08-06-2021 Resolved: 01-15-2023 Chronic Malaise and fatigue (10 sources) Asthenia; Translations: [Weakness] Onset: 11-13-2022 12-05-2022 Episodic Mood disorders (8 sources) Mood disorders; Translations: [DEPRESSION UNSPECIFIED] Onset: 08-11-2022 Resolved: 11-16-2023 08-11-2022 Open wounds of extremities (13 sources) Open wound, heel; Translations: [Unspecified open wound, left foot, initial encounter] Onset: 11-08-2019 11-08-2019 Episodic Other aftercare (1 source) 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; Translations: [[facility] USE ORAL HYPOGLYCEMIC DX] Onset: 12-22-2022 Episodic Other aftercare (1 source) Encounter for other orthopedic aftercare; Translations: [ENC FOR OTHER ORTHOPEDIC AFTERCARE] Onset: 10-15-2022 Episodic Other circulatory disease (16 sources) Orthostatic hypotension; Translations: [Orthostatic hypotension] Onset: [...] 12-10-2004 08-07-2016 Episodic Other connective tissue disease (13 sources) Full thickness rotator cuff tear; Translations: [Complete rotator cuff tear or rupture of right shoulder, not specified as traumatic] Onset: 08-02-2018 08-02-2018 Episodic Other connective tissue disease (10 sources) Recurrent falls ; Translations: [Repeated falls] Onset: 08-29-2020 08-29-2020 Episodic Other connective tissue disease (3 sources) History of cervical spine fusion; Translations: [Arthrodesis status] Onset: 10-10-2021 10-10-2021 Episodic Other connective tissue disease (1 source) Pain in right foot Onset: 08-27-2021 Resolved: 08-27-2021 Episodic Other connective tissue disease (2 sources) Arthrodesis status; Translations: [ARTHRODESIS STATUS] Onset: 10-15-2022 Episodic Other gastrointestinal disorders (13 sources) Dysphagia; Translations: [Dysphagia, unspecified] Onset: 04-13-2019 04-13-2019 Episodic Other injuries and conditions due to external causes (1 source) History of falling Onset: 10-23-2021 Resolved: 10-23-2021 Episodic Other nervous system disorders (10 sources) Multifactorial gait problem; Translations: [Other abnormalities [...] ORGANISM] Onset: 11-05-2022 Episodic Residual codes; unclassified (13 sources) Tobacco use and exposure - finding; Translations: [Tobacco use] Onset: 04-24-2020 04-24-2020 Episodic Spondylosis; intervertebral disc disorders; other back problems (20 sources) Low back pain; Translations: [Cervicalgia] Onset: 03-06-2004 Resolved: 01-27-2022 03-06-2004 Episodic Sprains and strains (6 sources) Neck sprain; Translations: [Sprain of joints and ligaments of unspecified parts of neck, initial encounter] Onset: 03-06-2004 03-06-2004 Episodic Syncope (20 sources) Syncope; Translations: [Syncope and collapse] Onset: 08-29-2020 08-29-2020 Episodic Unclassified (1 source) History of COVID-19 Z86.16 Unclassified (7 sources) Onset: 08-25-2022 08-25-2022 Procedures Date Procedure Procedure Detail Performing Clinician Start: 02-11-2024 Colonoscopy DO Ellen vaughn Work Phone: Start: 01-06-2024 Bacteria identified in Urine by Culture Start: 11-16-2023 Adult depression scr eening assessment Andrés Bowden MD Work Phone: Start: 01-22-2023 Insertion of suprapu bic catheter using ultrasound guidance Fidel IBARRA Start: 12-03-2022 Echocardiography ELLEN CRABTREE Start: 08-11-2022 Adult depression scr eening assessment Andrés Bowden MD Work Phone: Start: 02-18-2022 Gluc bld gluc mntr d ev cleared fda spec home use Tucker Robbins MD Work Phone: Start: 02-18-2022 COVID-19, RAPID Frank Reddy MD Work Phone: Start: 02-18-2022 Gluc bld [...] ev cleared fda spec home use Frank Reddy MD Work Phone: Start: 02-16-2022 Gluc bld [...] Parra MD Work Phone: Start: 02-15-2022 GLOMERULAR FILTRATIO N RATE, ESTIMATED Evelina Parra [...] ev cleared fda spec home use Frank Reddy MD Work Phone: Start: 02-11-2022 Gluc bld gluc mntr d ev cleared fda spec home use Frank Reddy MD Work Phone: Start: 02-11-2022 Gluc bld gluc mntr d ev cleared fda spec home use Frank Reddy MD Work Phone: Start: 02-11-2022 Blood count complete automated Evelina Parra MD Work Phone: Start: 02-10-2022 End: 02-10-2022 Assay of thyroid stimulating hormone tsh Evelina Parra MD Work Phone: Start: 02-10-2022 VITAMIN B12 & FOLATE Hitesh Parra MD Work Phone: Start: 02-10-2022 Gluc bld gluc mntr d ev cleared fda spec home use Frank Reddy MD Work Phone: Start: 02-10-2022 Gluc bld gluc mntr d ev cleared fda spec home use Frank Reddy MD Work Phone: Start: 02-10-2022 Echo tthrc r-t 2d w/wom-mode compl spec&colr d Bala Schrader MD Work Phone: Start: 02-10-2022 Gluc bld gluc mntr d ev cleared fda spec home use Frank Reddy MD Work Phone: Start: 02-09-2022 Gluc bld gluc mntr d ev cleared fda spec home use Frank Reddy MD Work Phone: Start: 02-09-2022 Gluc bld gluc mntr d ev cleared fda spec home use Frank Reddy MD Work Phone: Start: 02-09-2022 Cortisol total Marcos Jorgensen MD Work Phone: Start: 02-09-2022 End: 02-09-2022 Cortisol total Marielena Ramsey DOWEL 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 - HAND CEMENTER Work Phone: Start: 02-09-2022 Gluc bld gluc mntr d ev cleared fda spec home use Frank Reddy MD Work Phone: Start: 02-09-2022 Cortisol total Marcos Jorgensen MD Work Phone: Start: 02-09-2022 Blood count complete auto&auto difrntl wbc Marielena Ramsey DOWEL 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 - HAND CEMENTER Work Phone: Start: 02-09-2022 Gluc bld gluc mntr d ev cleared fda spec home use Frank Reddy MD Work Phone: Start: 02-08-2022 Gluc bld gluc mntr d ev cleared fda spec home use Frank Reddy MD Work Phone: Start: 02-08-2022 Anion gap [Moles/Vol] J coy Ramsey DOWEL 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 - HAND CEMENTER Work Phone: Start: 02-08-2022 End: 02-08-2022 Basic metabolic panel calcium total Marcos Jorgensen MD Work Phone: Start: 02-08-2022 GLOMERULAR FILTRATIO N RATE, ESTIMATED Marielena Ramsey DOWEL 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 - HAND CEMENTER Work Phone: Start: 02-08-2022 SCAN OF BLOOD SMEAR Ricardo e Ramsey DOWEL 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 - HAND CEMENTER Work Phone: Start: 02-08-2022 Gluc bld gluc mntr d ev cleared fda spec home use Frank Reddy MD Work Phone: Start: 02-08-2022 Gluc bld gluc mntr d ev cleared fda spec home use Frank Reddy MD Work Phone: Start: 02-08-2022 Radiologic exam ches t single view Marielena Mustafa APRN - NATHEN Work Phone: Start: 02-08-2022 Blood count hemoglobin Marielena Menezes CNP Work Phone: Start: 02-08-2022 Ecg routine ecg w/le ast 12 lds i&r only Marielena Mustafa APRN - NATHEN Work Phone: Start: 02-08-2022 Gluc bld gluc mntr d ev cleared fda spec home use Frank Reddy MD Work Phone: Start: 02-08-2022 Anion gap [Moles/Vol] U nknown Provider Result Start: 02-08-2022 End: 02-08-2022 Basic metabolic panel calcium total Maki Radha KHAN Work Phone: Start: 02-08-2022 GLOMERULAR FILTRATIO N RATE, ESTIMATED Unknown Provider Result Start: 02-07-2022 Gluc bld gluc mntr d ev cleared fda spec home use Frank Reddy MD Work Phone: Start: 02-07-2022 Gluc bld gluc mntr d ev cleared fda spec home use Frank Reddy MD Work Phone: Start: 02-07-2022 Radex spine 1 view s pecify level Frank Reddy MD Work Phone: Start: 02-07-2022 Radex spine 1 view s pecify level Frank Reddy MD Work Phone: Start: 02-07-2022 End: 02-07-2022 Posterior segmental instrumentation 3-6 vrt seg Frank Reddy MD Work Phone: Start: 02-07-2022 Antibody screen Frank Reddy MD Work Phone: Comment on above: Performed at [facility] [address] [place] [address] Start: 02-07-2022 Gluc bld gluc mntr d ev cleared fda spec home use Frank Reddy MD Work Phone: Start: 02-07-2022 Blood typing serologic abo Frank Reddy MD Work Phone: Start: 12-03-2021 Nerve conduction [...] spine w/ o contrast material Oumou Mcqueen DOWEL 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.HAND CEMENTER Work Phone: Start: 04-24-2020 Antibody screen Start: [...] MD Work Phone: Arthroplasty of knee Ellen Crabtree Work Phone: Comment on above: x 3; Arthroplasty of knee Fidel IBARRA Bypass of stomach Fidel STILL Colonoscopy Fidel IBARRA Esophagogastrostomy, antesternal or antethoracic Ellen R Michis Work Phone: Operation on the ear Ellen R Michis Work Phone: Comment on above: reconstruction; Operative procedure on hand Ellen R Kuns Work Phone: Comment on above: x 3 - right; Procedure on back Ellen R Ku ns Work Phone: Comment on above: x 8; Procedure on lymph node Sunny t R Leyda Work Phone: Comment on above: right neck; Prosthetic arthropla sty of shoulder Ellen R Michis Work Phone: Comment on above: left; Prosthetic arthropla sty of the hip Ellen R Kuns Work Phone: Comment on above: bilateral; Repair of musculoten dinous cuff of shoulder Ellen R Kuns Work Phone: Comment on above: x 2 right; Shoulder region stru cture (body structure) Fidel IBARRA Tonsillectomy Fidel IBARRA Results Test Name Value Interpretation Reference Range Facility Coding Summary.on 04-13-2024 Coding Summary. [id number] hlYWQ +[id number] TElOSywgQVBQTElOSyIgbmFtZ W5dlWHoCJTs IC8+TC5qFEDxBoocqPTtn0P7l RJ7S20sjl1bTVgrfWN6UDGpVw Umjoujn6omlUm8RQioHcvxVzJ t SOZimH49BMW0oY43Ng28pRLad ZKqc5erqZj6AyJeFCPyEGD0fU noSCcvl9AaODGkY84ohIWup4G 6 VPHnaFvvpEGeSqVgqAD0qI3kG Uvadxwzs0sgvoenTsb1ob17zD Nkq2U8qVA2C5MscwH6JSCahID g HbmroWRCfI2lvsrms8pblbgfD qOfUZUmJLr9UXn0MNWvhFxiLw IqVU37IUP0AFAiisTaA1YaVDU s xRzoJwQ6l7B0Io7YE2VSBevqN 1VNTUFSWTwvdGQ+JX49qr41G1 LgIygfBhn3YQQcXOF5nZM7fZ4 n ZQIfELygw5Q0eUE3H6LpndPfj u4zs3twUBAdWVjbF97sqWDrj4 T6CBIzdBZ0NQPzsPugUbJscV8 3 Oyc+WESdxPcmx2CmIbjbf7drr 0yxeQz8AeozMXPnosZqgNzgYS R0t3ZtXh3lLDCppGY3nOG3jG2 i EiNcUyC4ZPzeR278XqKmlHAqJ mbyR92xY3CsqBP+DVYfIsx7DO VteIaaRD8vG6EzDDNfkrcciWV m zDdfJD0hNKBypdwkUPEojL2dZ ZLnD8e2SsUyYnN2SZqgP8OaNP VxmgduVp22aG4xZzFoPwO5TTt u J9WeueU9KBUaeOZwMLkrRMI9K 91jh5G7GIOnVFYsRMW9vVE7tZ 1hbGlnbjogbGVmdDsgdmVydGl j STpnLNoqU397JLBrhUrrZsTlR GluZyBEYXRlOiAgMDYvMjYvMj AyNDwvdGQ+GEGsMCH2pWmrUXW n gVHxTVuxCv5pySybiCsgON4mO WZfnnziTFZyfT3bYKHvdCUkvK xzCQ0vUJUuitefc244FoXsRLH 0 LTAiuKVsE0GevT0gTkZcSDFwG BTuQ7QosBDaKBivO648BKleMh O5KAIzrmXoK1KnFUXduUmrLfS 0 b7V0Tr0Pr4NoklhmX0DxlPIpA tTcBokgESz4C6YoZxwalCI+PC 52DYDbVQ83HNk4FJR1lYfnXFh i VUXlS1LsuF7iCdRoBPPhLTNcJ yc+PHRhYmxlIHdpZHRoPScxMD AqWqCfoZoqSQ6eMh7iZMGbGRJ v uPzfbEVhYsQux6ezNQUlRIreW F7oxOnkP9CjzII6YJAby2x7Vx 11H42lB7EahWP+SHOugBL2fFL 0 uZ7sSyEgWrO3HIktC222ZkIjw ICdFquef0bbv9wrdAp8HaC6PZ PbjhZdhUshZVL3g9YaRm53I36 s IHdpZHRoPSIxNSUiIHZhbGlnb z7cpP3mHh4+ZCVxdIJ9uFO2qI 8eFqGcLzM3LHonT739XwSnxVW v Evsom3yns7ztsVj9MrPcPQNzq iUkeTuvXMR7i7GtMl94M8YlmE pxm8CdPyo9am03sDHxl6R0iQF 9 Z3IhEOXxksacwFEqqOjmDB2lG JMqdnpiCVHktA2fBVCzW3m8Bm DsKqO7FTxmV0MmizP2HVNilVF g BLRmyKUKpW8hzosrh4kixthiC tLtBOIyRQm3JTc3TNFfpQkfQq UiRRP4HiG1ESF3mYJuqT6bvUy n gzlbgG7fYkp+XZI8rDGuhVKTW B9gHdpqlWT+JTJbFTZ1tEvmAA meRVYctN0vLWZpB0c7VkSeZqM 1 QInqF0WmzyA6VTYrbODnXMGzi BNTuO5dypjyw5zzlvmzFaVlTD GsKAn3IQa7BIJirOacMhJcSOR 0 BgD6MAN6fMWfgA0kgRbajjlqr G9wOyc+FbvcnAbvQCH0QBk8Z8 XiIdh7KGCtaFouZP0caWRrMBp u Db8byCympHomUG3uGNPduczxy 700OlUiw5lfBHNzsLEnZEprDA H2B95lz2E9UUYzTEJgUIV3lOA 4 xH3zzIvmrvazmZLwmJifktYcx AjuJZwlNZouL185EGAbxXrtQt CeHKh6E1UyUqg9HNJmbUmnIL7 n mSGxTEbpEl3lkMvuqGauCY4hR REscxqwn162QeOxv7grHJWgdH NzMZefDMR3F86en8D4WWDrWBW w YFL2tBF1gH1fqCpjpnopqXKlc PgypmHehMghXToiWAnqQ408EH UowYbqTcIplXv4J4OzWlk3VVL z jNvbUF8baBZiEXcjPb6mkVtfr HsvEA0oCFSwsdxaf876WeYgy6 qxSIShdTHnGKfpUIY3Z87ml8I 6 EAEvBCMlMOK9iXX9vU4ciActg jogbGVmdDsgdmVydGljYWwtYW xrU840WOQcrMxwJqYzaGkfzjK g WJcoGIg3L6CkGhbsmJQ+PC90Y ECiNO33nHOciIEks5xpjAj7Rv TrPOBgJWA3qClaIGkvt5LpLTK t K84yoAAmu2R0XGLshHdsoYUyD lPceYE3vJ5cCGvfwuyoz3ejvz ytCtmnb8nfqr42rW95J78fUEs p LVSiDLFmZFYcEYWhzUfnzm0gd G9wIi8+GEMnfMT3zSB3wD7wXR KcPsY7HPkcW787WrMtyLNxBlu j m2srn0ahlSj7XoW3ZYJwbpQsk SgfESX1f9LxLx67Y56bEHdrMH UoNCTgUVPoVSOcsVobhf7bmJ0 w Ii8+IJNjxTQ3cQR1cH6uNmOqD iM3RUguO698OhXdpKRhMkkbY4 4iV3KyhDP+UTImGin3KPAsgEw s EW3aoYNzSYcuCt6lCPP8BuUoL fJvJVkyF8FdHTBkaowygfkcuG U3IRByMGTmxP48Nm0laFdxMLX w qIZEoH9mksutu0dcrnkxPxWgX UHoHYr4EAy3TIDhjQbfAmWeNJ L8QoF8YPF8uRVfeF9duYzojmj g hA1vJ8QvTQWnouguZm28mH0iP tVoTxC9BZhcQbo+W7NZWZUbIC NIQVJMRVMgTDwvdGQ+PHRkIHN 0 tTkpSUrnDPNbwL6eHLRzQ8h2Z dIhNbF6GKffS8SgSMQiitgbFc 67sA9hYfZySpX6NJrkU7EesaE 6 LJFwfLOzZJguHGX6O34vt5I5P PGuSXVuXBR0jJJ2bT9maBmvyf ogbGVmdDsgdmVydGljYWwtYWx p V651IXLxxUayPcGrFoF2QaY1P Yt6E7HjSqp6FWSxaDwlCT6zzJ RcNRikLq2heKhdhOvmYU5vCWJ p elbyNGNezP3vBXGhkMUhaYpdU Y3zGQYfczwwr050JjXvLDB2VZ TprULnL5YvjT6iRrVeLJAeGVC w G2EuyVTdIOpiR947XGxsMwN3V RYiuuLzL4ZaZKMtwShrBnC2p0 J3Kg69SZJTZZRfmcrroQO+PHR k WLF1yFuqKDubHUWniJ6mZKVwB 7z0ImBdQkM0SDdhB8KeWHRldy ovDh30gL7jJeWvLvU8COwgE5T v ukU1MEBizPCuCJqiLZP6T06vs 0Y2MDLfMQFhAIU4zQH2rB2yfC lnbjogbGVmdDsgdmVydGljYWw t YRmsD163WYYraJavYm0vxJJ3V 0LzJab0SXDtdGqwRO4ayRYsIN fxXo0etYvolCliKS8mLRMtvoq w HEGdwS3mPSMcoDBuoSxgZC2dY VKwfveww694UiGrZEQ1CTFqeE DeU8IrbC6uRdIbZZVaDSZgU7Y l aRTeNXztT049HLmkWqF4OMXqk dLeL4ZvFJOnaTksPgG6i9U9Vo 6VKQEfRQLvzMTsItI0Q4ZaErv v dHI+FP45RDSvYB88cRUzgULii 7ehrTz2PgQoTHRxOZX7hErtSJ kna4QfHBIqL49emMWoq7Z6WUW v mPpcaVLjQyZdkSJ7uT0cYEiie uydq9hzpyklIkiwp3ivol67lK 27I45eZGhxORGtGVHsSMHcCKP h hSsfpz5jfR1gFg1+OQXnhIZ4v QR3fZ8fPhRdXwT6QZysM235Fg AnpPBmBxurm5tow8kejXe3XgB w ARPiwcUqzVsyEJQ6x6SpNl67O 29sIHdpZHRoPSIyMCUiIHZhbG fudl2ovX1oGh8+NU6yy6wqii2 1 fS67xPB+VUAzXWS6kXheRBspQ WHjuK6ePTnxBwE8RXCsTrTgkW 41gVUoPKkgDc3zsPazsWvvVN4 w HMRjljgvr224PwUel0ojOUHzm EYkNPxsNMH7P58by8A5JLMdTV XlXGR0wJO4wR9ttXtbkdsezNS m kGfnexGfdWlkTMmnZNuaL702A RJhlCddAnIwnGXiW0khkgTAXV 1lOjwvdGQ+HVIzEZC3pLqaLNz w CVBcyI6rMFQdB8s6CoYhAdW4T ZshB8TmeoH4RXJnhIOuFMGlqR PVhO8ahoiyz2amscnaBdCuKDG w HFb3GJg9CUZerPbsUaKxBDE4Z hK5OIT2kWCcdH1vmLeknxolwY 9wOyc+RklOOjwvdGQ+PHRkIHN 0 uTrePNskYTJbqI0jDFEiF8s8S tSbBgJ5GMzjW8UflcL3UGKodK BlGMRerDAAzC5raqbic2hsiub g CjDvZKWxLNq5SVf0IVQtfZfeU dIqARJ9JrY9CDD5mMYfyI6dnR pqimkctA1sRwu+TVJOOjwvdGQ + JSBgOJG8qApaKZpeIHHqaZ8hP RTwP7j8ZqPoNwC1KPadY9Pnod P6WURfaJSnEFDlgXZVvS9urka j d5ntigkqFhQxWXDnVWj7MKr4G KBlmMdxKwAbUDZ6FpU4WTT9jH SdbO1arCavyxpigH2eTwb+UGF 5 FTW3AC73ZT83M8QkUrsezBAap +PHRhYmxlIHdpZHRoPScxMD RhFgUopSlwMA3sCs5wFEXvAMO v bGxhcHNlOiBjb (more content not included)... Normal [facility] (Inserted Image. Nette ble to display) April 11, 2024 [address]A [address] [place] [address] : 1960 Dear Alisia Correa, We have been trying to reach you with no success. It is important that you return our call regarding your recent lab result upon receiving this letter. Also, at the time of your call, please provide us with your current information. Thank you for your prompt attention to this matter. Sincerely, [facility] [address] [place] [address] [facility] C Urineon 04-07-2024 Bacteria identified Cx Nom (U) Microbiology PROCEDURE: Urine Culture [R1] SOURCE: U Random BODY SITE: COLLECTED DATE/TIME: 04/05/2024 15:30 EDT RECEIVED DATE/TIME: 04/05/2024 18:24 EDT START DATE/TIME: 04/05/2024 18:24 EDT FREE TEXT SOURCE: CLARE Duncan APRN-C, Dakota YAN, CHIEF PRIVACY OFFICER-C, Pippa X Pippa X FINAL REPORTS Final Report [] Verified Date/Time: 04/07/2024 09:40 EDT >100,000 cfu/ml Klebsiella pneumoniae 50,000 cfu/ml Enterobacter cloacae 5,000 cfu/ml Mixed skin contaminants SUSCEPTIBILITY RESULTS __ LEGEND: S=Susceptible, N/R=Not Reported, Blank=Data not available, or drug not advisable or tested, I=Intermediate, ESBL=Extended spectrum beta-lactamase, R=Resistant, TFG=Thymidine-dependent strain, BINH=Beta-lactamase positive, SABI=mcg/m;(mg/L), S*=Predicted susceptible interp, R*=Predicted resistant interp Klepne Entclo Antibiotic SABI Dilutn SABI Interp SABI Dilutn SABI Interp Ampicillin >16 R >16 R Ampicillin/ <=8/4 S >16/8 R Sulbactam Aztreonam <=4 S 16 I Cefazolin <=2 S >16 R Cefepime <=2 S <=2 S Ceftazidime <=1 S >16 R Ceftazidime/ <=8 S <=8 S Avibactam Ceftriaxone <=1 S >2 R Cefuroxime <=4 S >16 R Ciprofloxacin <=0.25 S <=0.25 S Ertapenem <=0.5 S <=0.5 S Gentamicin <=2 S <=2 S Levofloxacin <=0.5 S <=0.5 S Meropenem <=1 S <=1 S Nitrofurantoin 64 I >64 R Piperacillin/ <=8 S <=8 S Tazobactam Tetracycline <=4 S <=4 S Tobramycin <=2 S <=2 S Trimethoprim/ <=2/38 S <=2/38 S Sulfa Performing Locations R1: This test was performed at: [facility], [address] [place] [address], [id number]- , , [facility] Comment on above: Performed By: #### [id number] #### [facility] [address] [place] [address] RAD - MISCon 03-25-2024 RAD - MISC [id number] [facility] RAD - Ultrasound Reporton RAD - Ultrasound Report [id number]#[id number] Normal [facility] Patient Educationon 03-15-20 24 Patient Education Caregiving Antibiotic Medicine, Adult Antibiotic medicines are used to treat infections caused by bacteria, such as strep throat and urinary tract infection (UTI). Antibiotic medicines will not work for colds, the flu (influenza), or other illnesses caused by viruses. These medicines work by killing the bacteria that are making you sick. Antibiotics can also have serious side effects. It is important that you take antibiotic medicines safely and only when needed. When do I need to take antibiotics? You may need antibiotics for: ? UTI. ? Strep throat. ? Bacterial sinusitis. ? Meningitis. This infection affects the spinal cord and brain. ? Serious lung infection. You may start antibiotics while your health care provider waits for your results from any tests for possible infection. Tests may include a culture of your throat, urine, blood, or mucus. Your health care provider may change or stop your antibiotic depending on your test results. When are antibiotics not needed? You do not need antibiotics for most common illnesses. These illnesses may be caused by a virus, not by bacteria. You do not need antibiotics for: ? The common cold. ? Influenza. ? Sore throat. ? Discolored mucus. ? Bronchitis. Antibiotics are not always needed for all infections caused by bacteria. Many of these infections clear up without antibiotic treatment. Do not ask for or take antibiotics when they are not necessary. How long should I take my antibiotic? You must take the entire prescription. Continue to take your antibiotic for as long as told by your health care provider. Do not stop taking it even if you start to feel better. If you stop taking it too soon: ? You may start to feel sick again. ? Your infection may become harder to treat. Each course of antibiotics needs a different amount of time to work. Some antibiotic courses last only a few days. Some last about a week to 10 days. In some cases, you may need to take antibiotics for a few weeks to completely treat your infection. What if I miss a dose? Try not to miss any doses of medicine. If you miss a dose, call your health care provider or pharmacist for advice. Sometimes it is okay to take the missed dose as soon as possible. Do not take double or extra doses. What are the risks of taking antibiotics? Antibiotics can cause: ? Allergic reactions. ? Nausea. ? Yeast infections. ? Liver problems. Antibiotics can also cause an infection called Clostridioides difficile (C. difficile or C. diff), which causes severe diarrhea. This infection happens when the antibiotics kill the healthy bacteria in your intestines. This allows C. diff to grow. C. diff needs to be treated right away. Let your health care provider know if: ? You develop diarrhea while taking an antibiotic. ? You develop diarrhea after you stop taking an antibiotic. C. diff infection can start weeks after stopping the antibiotic. Taking an antibiotic also puts you at risk for getting sick in the future with bacteria that do not respond to medicine (antibiotic-resistant infection). Antibiotics can cause bacteria to change so that if the antibiotic is taken again, the medicine cannot kill the bacteria. These infections can be more serious and, in some cases, life-threatening. Do antibiotics affect control? control pills may not work while you are on antibiotics. If you are taking control pills, continue taking them as usual and use a second form of control, such as a condom, to avoid unwanted . Continue using the second form of control until your health care provider says you can stop. What else should I know about taking antibiotics? It is important for you to take antibiotics exactly as told. Make sure to: ? Take the correct amount of medicine at the same time each day. ? Ask your health care provider: ? How long to wait between doses. ? If your antibiotic should be taken with food. ? If there are any foods, drinks, or medicines that you should avoid while taking your antibiotics. ? If there are any side effects you should be aware of. ? Use only the antibiotics prescribed for you by your health care provider. Do not use antibiotics prescribed for someone else. ? Drink a large glass of water when taking your antibiotics. Drink enough fluid to keep your urine pale yellow. ? Ask your pharmacist for a syringe, cup, or spoon that properly measures your antibiotics. ? Throw away any leftover medicine. Follow these instructions at home: ? Take gfxq-xmp-jhcupwu and prescription medicines as told by your health care provider. ? Return to your normal activities as told by your health care provider. Ask your health care provider what activities are safe for you. ? Keep all follow-up visits as told by your health care provider. This is important. Contact a health care provider if: ? Your symptoms get worse. (more content not included)... Normal [facility] Urology Office/Clinic Noteon 03-15-2024 Urology Office/Clinic Note Chief Complaint Cath change and f/u HPI Staff Patient her for cath change and f/u Review of Systems PHQ Score Initial Depression Screen Score: 0 SCORE Physical Exam Vitals & Measurements T: 36.8 ?C(Temporal Artery) HR: 73(Peripheral) RR: 16 BP: 138/88 HT: 70 in HT: 177 cm WT: 95.3 kg WT: 209.66 lb BMI: 30.42 General: Well developed, well nourished, in no acute distress. Genitourinary: Flank Pain: none. Bladder: nonpalpable. Assessment/Plan 1. Recurrent UTI (N39.0: Urinary tract infection, site not specified) UCX: 05/25/2023 - 20k Enterobacter aerogenes, 10k Pseudomonas aeruginosa, treated with doxycycline x 10 days, IV Fortaz x 1 week 06/19/2023 - 50k Pseudomonas aeruginosa, treated with gentamicin 07/06/2023 -100k Pseudomonas, unable to contact patient with results 07/17/2023 - 100k Pseudomonas aeruginosa, 5k MRSA, treated with Fortaz x 1 week and Macrobid x 5 days 08/25/2023 - 100 K Pseudomonas, treated with tobramycin IV x 1 week 10/21/2023 - 100k Citrobacter braakii, 100k Providencia rettgeri, 100k Klebsiella oxytoca, given methenamine 1 g twice daily x 7 days 02/23/2024-100k Klebsiella pneumoniae, 100k Citrobacter braakii, treated with cefdinir x 10 days Patient notes that he does have mild residual burning in bladder, but is overall done well since completion of cefdinir. Discussed with the patient starting steo-ygb-ipchlpv UTI prevention supplements including d-mannose, Cranberry and Probiotics to help decrease the number of urinary tract infections. Explained that D-mannose works by the bacteria clinging to the sugars vs the bladder wall, as well as the Cranberry making it harder for bacteria to cling to the bladder wall, and probiotic by increasing the number of good bacteria. -Start OTC prevention supplements -Call office with all future urinary infection symptoms. 2. Urinary retention (R33.9: Retention of urine, unspecified) S/p Cysto, SP tube placement on 01/22/23 [1] Patient states he is overall doing well at home with the SP tube. He denies any blood in his urine, fevers, flank pain. Overall is draining without difficulty. He irrigates SPT as needed when he notices that urine output seems to be slowing down. SP tube exchange in office today without issues. -Follow-up 3 weeks for next SP exchange =Continue to irrigate as needed 3. Bladder spasms (N32.89: Other specified disorders of bladder) Patient is using tolterodine ER 4 mg daily for bladder spasms. He states that this is working well for him and only occasionally has leaking through his urethra. He is tolerating well without side effects, continue medication. Patient to call for refills 4. Kidney stones (N20.0: Calculus of kidney) CT AP w/o contrast 12/18/22 2 punctate left-sided nephroliths. No hydro. [2] Patient notes that he has a history of large stone burden of uric acid stones. He states that he is required 1 stone procedure in the past. He denies any flank pain or any recent stone episode. Discussed generalized stone prevention - pt encouraged to increase fluid intake so that he/she producing 2.5L of urine daily. Add 1/4 cup of lemon juice to water throughout the day or can also drink sugar free lemonade or clear soda. Avoid dark leticia. Restrict sodium intake. Restrict animal protein. -KUB/R US for stone monitoring, will call with results Ordered: US Renal XR Abdomen 1 View 5. BPH with urinary obstruction (N40.1: Benign prostatic hyperplasia with lower urinary tract symptoms) Patient seen 03/11/[address] Ibarra for cath removal following partial TURP/Removal of UroLift bands done 03/08/19. Patient then no showed to post-op appointment. Path report neg. PSA 07/09/22 - 1.070 [3] Patient states that his PCP is following his PSA, it remains low as far as he knows. States that he has a follow-up appointment with his PCP this summer. States that he will ensure that he is checking PSA at that time. Other obstructive and reflux uropathy (N13.8: Other obstructive and reflux uropathy) Orders: nitrofurantoin, 100 mg = 1 cap(s), Oral, BID, # 5 cap(s), Refills(s) 0, Pharmacy: [facility], 175, cm, 03/20/23 9:07:00 EDT, Height/Length Dosing, 92, kg, 03/20/23 9:07:00 EDT, Weight Dosing Follow-up No qualifying data available Patient Education Dietary Guidelines to Help Prevent Kidney Stones Antibiotic Medicine, Adult Kidney Stones, Zaxw-zs-Wotj Benign Prostatic Hyperplasia Problem List/Past Medical History Ongoing Anemia Anxiety Asthma BPH with urinary obstruction COPD with asthma Coronary atherosclerosis Depression Diabetes mellitus, type 2 Disorder of kidney due to diabetes mellitus Emphysematous bronchitis Essential hypertension Incontinence without sensory awareness Iron deficiency anemia Kidney stones MRSA (methicillin resistant staph aureus) culture positive Recurrent UTI Sleep apnea 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 Urinary reten (more content not included)... [facility] Comment on above: Result Comment: Elec tronically Signed By: TITI Duncan APRN, Pippa Brand\.br\Date and Time Signed: 03/15/24 13:28 EDT Provider Letteron 03-01-2024 Provider Letter (Inserted Image. Nette ble to display) March 01, 2024 ALISIA COR[address]A [address] [place] [address] : 1960 Dear Alisia Correa, We have been trying to reach you with no success. It is important that you return our call regarding your lab results upon receiving this letter. Also, at the time of your call, please provide us with your current information. Thank you for your prompt attention to this matter. Sincerely, [facility] [address] [address] [facility] C Urineon 02-25-2024 Bacteria identified Cx Nom (U) Microbiology PROCEDURE: Urine Culture [R1] SOURCE: U Cath BODY SITE: COLLECTED DATE/TIME: 02/23/2024 14:39 EDT RECEIVED DATE/TIME: 02/23/2024 19:26 EDT START DATE/TIME: 02/23/2024 19:26 EDT FREE TEXT SOURCE: carlin IBARRA MD, FidelFidel Vora MD FINAL REPORTS Final Report [] Verified Date/Time: 02/25/2024 10:44 EDT >100,000 cfu/ml Klebsiella pneumoniae >100,000 cfu/ml Citrobacter braakii SUSCEPTIBILITY RESULTS __ LEGEND: S=Susceptible, N/R=Not Reported, Blank=Data not available, or drug not advisable or tested, I=Intermediate, ESBL=Extended spectrum beta-lactamase, R=Resistant, TFG=Thymidine-dependent strain, BINH=Beta-lactamase positive, SABI=mcg/m;(mg/L), S*=Predicted susceptible interp, R*=Predicted resistant interp Klepne Citbra Antibiotic SABI Dilutn SABI Interp SABI Dilutn SABI Interp Amikacin <=16 S <=16 S Ampicillin >16 R >16 R Ampicillin/ <=8/4 S <=8/4 R* Sulbactam Aztreonam <=4 S <=4 S Cefazolin <=2 S >16 R Cefepime <=2 S <=2 S Cefoxitin <=8 S >16 R Ceftazidime <=1 S <=1 S Ceftazidime/ <=8 S <=8 S Avibactam Ceftriaxone <=1 S <=1 S Ciprofloxacin <=1 S <=1 S Ertapenem <=0.5 S <=0.5 S Gentamicin <=4 S <=4 S Levofloxacin <=2 S <=2 S Meropenem <=1 S <=1 S Nitrofurantoin 64 I <=32 S Piperacillin/ <=16 S <=16 S Tazobactam Tetracycline <=4 S <=4 S Tigecycline <=2 S <=2 S Tobramycin <=4 S <=4 S Trimethoprim/ <=2/38 S <=2/38 S Sulfa Performing Locations R1: This test was performed at: [facility], [address] [place] [address], [phone]- , , Normal [facility] Comment on above: Performed By: #### [id number] #### [facility] [address] [place] [id number] Capillary blood glucose blayne urement by glucometer (mass/volume)Ordered By: Bernice Shrestha on 02-11-2024 Glucose [Mass/Vol] 70 mg/dL Normal [facility] Comment on above: Random Glucose Refer ence Range is dependent on time and content of last meal. Glucose of more than 200 mg/dL in a nonstressed, ambulatory subject supports the diagnosis of Diabetes Mellitus. Result Comment: Deshler om Glucose Reference Range is dependent on time and content of last meal. Glucose of more than 200 mg/dL in a nonstressed, ambulatory subject supports the diagnosis of Diabetes Mellitus. PERFORMED BY: [facility] [address] [place] [address] PATHOLOGIST [employer]IVER SIVAKUMAR PALACIOS M.D. Performed By: #### G LUPRADIP #### Point of Care testing , [facility] 02-11-2024 L Specimen: [id number] Received: 02/11/24 Status: SOUT Req Num: [id number] Spec Type: Surgical Subm Dr: Bernice Shrestha DO Tissues: A Colon Biopsy (RT RANDOM COLON) B Colon Biopsy (LT RANDOM COLON) Procedures: HE/4, Gross/Micro L4/2 Age/ Patient Sex Location Account Attending Physician Alisia Correa 63/M [id number] Bernice Shrestha DO SPEC NUM: [id number] RECD: 02/11/24 STATUS: FABIANO WILKINS NUM: [id number] ASCENCION: 02/11/24- SUBM DR: Bernice Shrestha DO ENTERED: 02/11/[address] [facility] [address]: SPEC TYPE: Surgical DEPT: S ORDERED: HE/4, Gross/Micro L4/2 ORDERED: HE/4, Gross/Micro L4/2 Pathological Diagnosis A, right colon biopsies: -Colonic mucosa with generally adequately preserved mucosal glandular architecture, but also with mild superficial chronic inflammation observed in all fragments, in addition to the occasional minor lymphocytic exocytosis to the surface epithelium, and minor cryptitis and minor crypt abscesses are also noted in rare glands, highly suspicious for the underlying existence of a minor, early, or occult phase of microscopic colitis, requiring continuous clinical correlation and patient surveillance follow-up, and appropriate medical management, including social behavior modification including screening for or avoiding any abnormal food or medication exposure if no immediate initiation of the treatment plan in process B, left colon biopsies: -Colonic mucosa with generally preserved mucosal glandular architecture without any significant stromal chronic inflammation, except minimal melanosis coli?like changes in the superficial lamina propria, and with at least rare lymphocytic exocytosis also noticed, otherwise without any other convincing feature or evidence of microscopic colitis noted in the left colon Gross Description A. Received in formalin, labeled with the patient's name and right colon biopsies are 3 austin mucosal tissue fragments ranging from 0.4 x 0.3 x 0.1 cm to 0.2 x 0.2 x 0.1 cm, entirely submitted in A1. Specimen: [id number] Received: 02/11/24 Status: FABIANO Wilkins Num: [id number] Spec Type: Surgical Subm Dr: Bernice Shrestha DO Tissues: A Colon Biopsy (RT RANDOM COLON) B Colon Biopsy (LT RANDOM COLON) Procedures: HE/4, Gross/Micro L4/2 Patient: Alisia Correa SR [id number] (Continued) Specimen: [id number] Received: 02/11/24 (Continued) Gross Description (Continued) Signed (signature on file) Amanda Nicholas MD 02/13/24 1446 Specimen: [id number] Received: 02/11/24 Status: FABIANO Wilkins Num: [id number] Spec Type: Surgical Subm Dr: Bernice Shrestha DO Tissues: A Colon Biopsy (RT RANDOM COLON) B Colon Biopsy (LT RANDOM COLON) Procedures: TAO, Eugene/Micro L4/2 Patient: Alisia Correa [id number] (Continued) Specimen: [id number] Received: 02/11/24 (Continued) Gross Description (Continued) B. Received in formalin, labeled with the patient's name and left colon biopsies are 3 austin mucosal tissue fragments ranging from 0.3 x 0.2 x 0.1 cm to 0.2 x 0.2 x 0.1 cm, entirely submitted in B1. Clinical history: Diarrhea, mucus in stool, fecal incontinence. Rule out microscopic colitis TW CPT Codes 95023 X2 Specimen: [id number] Received: 02/11/24 Status: FABIANO Wilkins Num: [id number] Spec Type: Surgical Subm Dr: Bernice Shrestha DO Tissues: A Colon Biopsy (RT RANDOM COLON) B Colon Biopsy (LT RANDOM COLON) Procedures: HE/4, Gross/Micro L4/2 Patient: Alisia Correa SR [id number] (Continued) Signed (signature on file) Chin-Maury Nicholas MD 02/13/24 1446 Normal [facility] Pre-Certification Formon Pre-Certification Form [id number]#[id number] Normal [facility] Ambulatory Visit Summaryon 0 01-11-2024 Ambulatory Visit Summary ALISIA CORREA :1960 Visit Date:01/11/2024 Ambulatory Visit Instructions Your Care Team Attending [...] 11:00 AM EDT Where: [facility] Lori Normal [facility] Basophils Auto (Bld) [#/Vol] on 01-06-2024 Basophils (Bld) [#/Vol] 0.0 10 3/uL 0.0-0.1 [facility] Basophils/100 WBC Auto (Bld) on 01-06-2024 Basophils/100 WBC (Bld) 0.6 % 0.2-2.0 [facility] Eosinophils/100 WBC Auto (Bl d)on 01-06-2024 Eosinophils/100 WBC (Bld) 3.2 % 0.9-7.0 [facility] Erythrocyte distribution wid th Auto (RBC) [Ratio]on 01-06-2024 Erythrocyte distribution width (RBC) [Ratio] 14.6 % 11.0-15.0 [facility] Estimated glomerular filtrat ion rate (GFR) non- Americanon 01-06-2024 GFR/1.73 sq M.predicted among non-blacks MDRD (S/P/Bld) [Vol rate/Area] mL/min/{1.73_m2} >=60 [facility] Hematocrit Auto (Bld) [Volum e fraction]on 01-06-2024 Hematocrit (Bld) [Volume fraction] 40.9 % 42.0-54.0 [facility] Hemoglobin [Mass/volume] in Bloodon 01-06-2024 Hemoglobin (Bld) [Mass/Vol] 12.6 g/dL 14.0-18.0 [facility] Laboratory - Chemistry and C hemistry - challengeon 01-06-2024 Calcium [Mass/Vol] 8.5 mg/dL 8.5-10.1 [facility] Chloride [Moles/Vol] 106 mmol/L 98-107 [facility] CO2 [Moles/Vol] 24.7 mmol/L 21.0-32.0 [facility] Creatinine [Mass/Vol] 1.14 mg/dL 0.70-1.30 [facility] GFR/1.73 sq M.predicted MDRD (S/P/Bld) [Vol rate/Area] mL/min/{1.73_m2} >=60 [facility] Glucose [Mass/Vol] 70 mg/dL 74-106 [facility] Lactate [Moles/Vol] 1.4 mmol/L 0.4-2.0 [facility] Potassium [Moles/Vol] 3.6 mmol/L 3.5-5.1 [facility] Sodium [Moles/Vol] 140 mmol/L 136-145 [facility] Urea nitrogen [Mass/Vol] 25.0 mg/dL 7.0-18.0 [facility] Urea nitrogen/Creatinine [Mass ratio] 21.9 mg/mg [facility] Laboratory - Hematology and Cell countson 01-06-2024 Immature granulocytes/100 WBC (Bld) 0.4 % 0.0-0.5 [facility] Laboratory - Microbiology an d Antimicrobial susceptibilityOrdered By: Ellen Crabtree on 01-06-2024 Bacteria identified Cx Nom (U) [facility] Leukocytes [#/volume] correc jacqueline for nucleated erythrocytes in Blood by Automated counon 01-06-2024 WBC corrected for nucl RBC Auto (Bld) [#/Vol] 5.3 10 3/uL 4.0-11.0 [facility] Lymphocytes Auto (Bld) [#/Vo l]on 01-06-2024 Lymphocytes (Bld) [#/Vol] 2.2 10 3/uL 1.2-3.8 [facility] Lymphocytes/100 WBC Auto (Bl d)on 01-06-2024 Lymphocytes/100 WBC (Bld) 41.9 % 20.5-60.0 [facility] MCH Auto (RBC) [Entitic mass ]on 01-06-2024 MCH (RBC) [Entitic mass] 28.5 pg 25.9-34.0 [facility] MCHC Auto (RBC) [Mass/Vol]on 01-06-2024 MCHC (RBC) [Mass/Vol] 30.8 g/dL 29.9-35.2 [facility] MCV Auto (RBC) [Entitic vol] on 01-06-2024 MCV (RBC) [Entitic vol] 92.5 fL 80.0-94.0 [facility] Monocytes Auto (Bld) [#/Vol] on 01-06-2024 Monocytes (Bld) [#/Vol] 0.6 10 3/uL 0.3-0.8 [facility] Monocytes/100 WBC Auto (Bld) on 01-06-2024 Monocytes/100 WBC (Bld) 12.0 % 1.7-12.0 [facility] Neutrophils Auto (Bld) [#/Vo l]on 01-06-2024 Neutrophils (Bld) [#/Vol] 2.2 10 3/uL 1.4-6.5 [facility] Neutrophils/100 WBC Auto (Bl d)on 01-06-2024 Neutrophils/100 WBC (Bld) 41.9 % 43.0-75.0 [facility] No Panel Informationon 01-05 Eosinophils # (Auto) 0.2 10 3/uL 0.0-0.7 [facility] Immature Granulocyte # (Auto) 0.02 10 3/uL 0.00-0.03 [facility] Platelet mean volume Auto (B ld) [Entitic vol]on 01-06-2024 Platelet mean volume (Bld) [Entitic vol] 13.0 fL 9.5-13.5 [facility] Platelets Auto (Bld) [#/Vol] on 01-06-2024 Platelets (Bld) [#/Vol] 153 10 3/uL 150-450 [facility] RBC Auto (Bld) [#/Vol]on RBC (Bld) [#/Vol] 4.42 10 6/uL 4.70-6.10 [facility] Serum or plasma anion gap de terminationon 01-06-2024 Anion gap [Moles/Vol] 12.9 mmol/L [facility] Pre-Certification Formon Pre-Certification Form [id number]#1.00TIFF Normal [facility] Ambulatory Visit Summaryon 0 11-17-2023 Ambulatory Visit Summary ALISIA CORREA Kenny :1960 Visit Date:11/17/2023 Ambulatory Visit Instructions Your Care Team Attending [...] to do next Scheduled Follow-Up Appointments Thursday 11:30 AM EST Where: [facility] Pre-Certification Formon Pre-Certification Form [id number]#1.00TIFF [facility] A1C HEMOGLOBINon 11-10-2023 HbA1c (Bld) [Mass fraction] 5.7 % [employer] Other HbA1c (Bld) [Mass fraction]o n 11-10-2023 A1C HEMOGLOBIN [facility] Other C Urineon 10-23-2023 Bacteria identified Cx Nom (U) Microbiology PROCEDURE: Urine Culture [R1] SOURCE: U Cath BODY SITE: COLLECTED DATE/TIME: 10/21/2023 12:49 EST RECEIVED DATE/TIME: 10/21/2023 18:45 EST START DATE/TIME: 10/21/2023 18:45 EST FREE TEXT SOURCE: WALTER YBARRA, iFdel IBARRA MD, Fidel Hinkle FINAL REPORTS Final Report [] Verified Date/Time: 10/23/2023 09:51 EST >100,000 cfu/ml Citrobacter braakii >100,000 cfu/ml Providencia rettgeri >100,000 cfu/ml Klebsiella oxytoca SUSCEPTIBILITY RESULTS __ LEGEND: S=Susceptible, N/R=Not Reported, Blank=Data not available, [...] Locations R1: This test was performed at: [facility], [address] [place] [address], [id number]- , [place], Normal [facility] Comment on above: Performed By: #### 2 [id number] #### [facility] [address] [place] [address] Ambulatory Visit Summaryon 0 10-22-2023 Ambulatory Visit [...] 11:00 AM EST Where: [facility] Ambulatory Visit Summaryon 11-15-2022 Ambulatory Visit Summary ALISIA CORREA :1960 Visit Date:09/15/2023 Ambulatory Visit Instructions Your [...] 11:00 AM EST Where: [facility] Lab Reportson 08-28-2023 Lab Reports [id number]#1.00TIFF [facility] Formson 08-27-2023 Forms [id number]#1.00TIFF [facility] RAD - CT Reporton 08-24-2023 RAD - CT Report [id number]#1.00TIFF [facility] RAD - MISCon 08-17-2023 RAD - MISC [id number]#1.00TIFF [facility] Physician Orderon 08-03-2023 Physician Order [id number]#1.00TIFF [facility] Physician Orderon 07-27-2023 Physician Order [id number]#1.00TIFF [facility] C Urineon 07-21-2023 Bacteria identified Cx [...] to Hanny White/[facility] 07/21/2023 11:05:09 by KD SUSCEPTIBILITY RESULTS __ LEGEND: S=Susceptible, N/R=Not Reported, Blank=Data not available, or drug not advisable or tested, I=Intermediate, ESBL=Extended spectrum beta-lactamase, R=Resistant, TFG=Thymidine-dependent strain, IBNH=Beta-lactamase positive, SABI=mcg/m;(mg/L), S*=Predicted susceptible interp, R*=Predicted resistant [...] Locations R1: This test was performed at: [facility], [address] [place] [address], [address]- , [place], [facility] Comment on above: Performed By: #### 2 [id number] #### [facility] [address] [place] [address] Provider Letteron 07-13-2023 Provider Letter (Inserted Image. Nette ble to display) July 13, 2023 ALISIA CORREA [facility] [place] [place] [address] : 1960 Dear Mr. Correa, We have been trying to reach you with no success. It is important that you return our call regarding your recent injections upon receiving this letter. Also, at the time of your call, please provide us with your current information. Please call our office at [phone]. Thank you for your prompt attention to this matter. Sincerely, [facility] [address] [place] [address]. [place] [address] [facility] Lab Reportson 07-08-2023 Lab Reports [id number]#1.00CD:12 7 [facility] Gent Levelon 07-01-2023 GENTAMICIN 8.8 microgram/mL Normal 0.5-10.0 [facility] Comment on above: Performed By: #### 2 [id number] ####[facility] [address] [place] [address] Lab Reportson 07-01-2023 Lab Reports [id number]#1.00CD:[address] [facility] Physician Orderon 07-01-2023 Physician Order [id number]#1.00CD:12 7 [facility] Physician Order [id number]#1.00CD:12 7 [facility] Physician Orderon 06-29-2023 Physician Order [id number]#1.00CD:[address] [facility] C Urineon 06-21-2023 Bacteria identified Cx Nom (U) Microbiology PROCEDURE: Urine Culture [R1] SOURCE: U Cath BODY SITE: COLLECTED DATE/TIME: 06/19/2023 12:08 EDT RECEIVED DATE/TIME: 06/19/2023 18:55 EDT START DATE/TIME: 06/19/2023 18:55 EDT FREE TEXT SOURCE: WALTER YBARRA, Fidel IBARRA MD, Fidel Hinkle FINAL REPORTS Final Report [] Verified Date/Time: 06/21/2023 08:47 EDT 50,000 cfu/ml Pseudomonas aeruginosa SUSCEPTIBILITY RESULTS __ LEGEND: S=Susceptible, N/R=Not Reported, Blank=Data not available, [...] Locations R1: This test was performed at: [facility], [address] [place] [address], [address]- , [place], Normal [facility] Comment on above: Performed By: #### 2 [id number] #### [facility] [address] [place] [address] Ambulatory Visit Summaryon 0 06-19-2023 Ambulatory Visit [...] 11:00 AM EDT Where: [facility] Lab Reportson 06-08-2023 Lab Reports [id number]#1.00CD:12 7 [facility] Lab Reports [id number]#1.00CD:12 7 [facility] Lab Reports [id number]#1.00CD:12 7 [facility] Formson 05-29-2023 Forms [id number]#1.00CD:12 7 [facility] C Urineon 05-28-2023 Bacteria identified Cx [...] aerogenes 10,000 cfu/ml Pseudomonas aeruginosa SUSCEPTIBILITY RESULTS __ LEGEND: S=Susceptible, N/R=Not Reported, Blank=Data not available, [...] Locations R1: This test was performed at: [facility], [address] [place] [address], [address]- , , Normal [facility] Comment on above: Performed By: #### 2 [id number] #### [facility] [address] [place] [address] CALCULI, URINARYon 3 2,8 Dihydroxyadenine [facility] Comment on above: Performed By: #### C VDTBH #### [facility] [address] [address] [address] Bruce Nicholas Ammonium Acid Urate Normal [facility] Comment on above: Performed By: #### C VDTBH #### [facility] [address] [address] [address] Bruce Nicholas Bilirubin Ql (U) Normal [facility] Comment on above: Performed By: #### C VDTBH #### [facility] [address] [address] [address] Bruce Nicholas Ca Oxalate Dihydrate 20 % [facility] Comment on above: Performed By: #### C VDTBH #### [facility] [address] [address] [address] Bruce Nicholas CaHPO4 (Brushite) [facility] Comment on above: Performed By: #### C VDTBH #### [facility] [address] [address] [address] Bruce Nicholas Calcium Bilirubinate [facility] Comment on above: Performed By: #### C VDTBH #### [facility] [address] [address] [address] Bruce Nicholas Calcium Carbonate [facility] Comment on above: Performed By: #### C VDTBH #### [facility] [address] [address] [address] Bruce Nicholas Calcium Oxalate Monohydrate 80 % [facility] Comment on above: Performed By: #### C VDTBH #### [facility] [address] [address] [address] Bruce Nicholas Calcium Palmitate [facility] Comment on above: Performed By: #### C VDTBH #### [facility] [address] [address] [address] Bruce Nicholas Calcium Phosphate [facility] Comment on above: Performed By: #### C VDTBH #### [facility] [address] [address] [address] Bruce Nicholas Calcium Stearate [facility] Comment on above: Performed By: #### C VDTBH #### [facility] [address] [address] [address] Bruce Nicholas Carbonate Apatite Normal [facility] Comment on above: Performed By: #### C VDTBH #### [facility] [address] [address] [address] Bruce Nicholas Cellular Material [facility] Comment on above: Performed By: #### C VDTBH #### [facility] [address] [address] [address] Bruce Nicholas Cholesterol [facility] Comment on above: Performed By: #### C VDTBH #### [facility] [address] [place] [address] Dr. Bruce Nicholas Color (U) Brown [facility] Comment on above: Performed By: #### C VDTBH #### [facility] [address] [place] [address] Dr. Bruce Nicholas Comment [facility] Comment on above: Performed By: #### C VDTBH #### [facility] [address] [address] [address] Bruce Nicholas Comment Comment [facility] Comment on above: Result Comment: Calc ulus received wet. Wet calculi must be dried before analysis, which delays reporting of results. Leaving calculi wet (such as water, saline, blood, urine) may lead to changes in composition. Performed By: #### C VDTBH #### [facility] [address] [address] [address] Bruce Nicholas Comment: Comment Normal [facility] Comment on above: Result Comment: Eli poe questions regarding Calculi Analysis contact [facility] at: [phone]. Performed By: #### C VDTBH #### [facility] [address] [place] [address] Dr. Bruce Nicholas Composition Comment Normal [facility] Comment on above: Result Comment: Perc entage (Represents the % composition) Performed By: #### C VDTBH #### [facility] [address] [place] [address] Dr. Bruce Nicholas Cystine Normal [facility] Comment on above: Performed By: #### C VDTBH #### [facility] [address] [place] [address] Dr. Bruce Nicholas Disclaimer: Comment Normal [facility] Comment on above: Result Comment: This test was developed and its performance characteristics determined by [facility]. It has not been cleared or approved by the Food and Drug Administration. Performed By: #### C VDTBH #### [facility] [address] [place] [address] Dr. Bruce Nichoals Dried Blood [facility] Comment on above: Performed By: #### C VDTBH #### [facility] [address] [place] [address] Dr. Bruce Nicholas Drug or Metabolite Normal [facility] Comment on above: Performed By: #### C VDTBH #### [facility] [address] [place] [address] Dr. Bruce Nicholas Hydroxyapatite [facility] Comment on above: Performed By: #### C VDTBH #### [facility] [address] [place] [address] Dr. Bruce Nicholas Mg NH4 PO4 (Struvite) [facility] Comment on above: Performed By: #### C VDTBH #### [facility] [address] [place] [address] Dr. Bruce Nicholas MgHPO4 (Newberyite) Normal [facility] Comment on above: Performed By: #### C VDTBH #### [facility] [address] [place] [address] Dr. Bruce Nicholas Other component(s) Normal [facility] Comment on above: Performed By: #### C VDTBH #### [facility] [address] [place] [address] Dr. Bruce Nicholas PDF . Normal [facility] Comment on above: Performed By: #### C VDTBH #### [facility] [address] [place] [address] Dr. Bruce Nicholas Photo Comment [facility] Comment on above: Result Comment: Phot ograph will follow under a separate cover Performed By: #### C VDTBH #### [facility] [address] [address] [address] Bruce Nicholas Please note: Comment Normal [facility] Comment on above: Result Comment: Calc jayant report will follow via computer, mail or automotive software engineer delivery. Performed By: #### C VDTBH #### [facility] [address] [address] [address] Bruce Nicholas Size 6x4 Normal [facility] Comment on above: Result Comment: Mult iple pieces received. Dimensions of the largest piece reported. Performed By: #### C VDTBH #### [facility] [address] [address] [address] Bruce Nicholas Sodium Acid Urate Normal [facility] Comment on above: Performed By: #### C VDTBH #### [facility] [address] [address] [address] Bruce Nicholas Source Comment [facility] Comment on above: Result Comment: Urin francine Bladder Performed By: #### C VDTBH #### [facility] [address] [address] [address] Bruce Nicholas Triamterene [facility] Comment on above: Performed By: #### C VDTBH #### [facility] [address] [address] [address] Bruce Nicholas Uric Acid [facility] Comment on above: Performed By: #### C VDTBH #### [facility] [address] [address] [address] Bruce Nicholas Uric Acid Dihydrate Normal [facility] Comment on above: Performed By: #### C VDTBH #### [facility] [address] [address] [address] Bruce Nicholas Weight 615 mg [facility] Comment on above: Performed By: #### C VDTBH #### [facility] [address] [address] [address] Bruce Nicholas Xanthine [facility] Comment on above: Performed By: #### C VDTBH #### [facility] [address] [place] [address] Dr. Bruce Nicholas POINT OF CARE GLUCOSEon Glucose [Mass/Vol] 70 mg/dL Critically low 74-106 Th e [facility] Comment on above: Performed By: #### C BC #### [facility] [address] [place] [address] Dr. Bruce Nicholas CBC AUTO DIFFon 01-20-2023 BASO # 0.0 103/ul Normal 0.0-0.1 [facility] Comment on above: Performed By: #### C VDTBH #### [facility] [address] [place] [address] Dr. Bruce Nicholas Basophils/100 WBC (Bld) 0.2 % Normal 0.2-2.0 [facility] Comment on above: Performed By: #### C VDTBH #### [facility] [address] [place] [address] Dr. Bruce Nicholas EO # 0.1 103/ul Normal 0.0-0.7 [facility] Comment on above: Performed By: #### C VDTBH #### [facility] [address] [place] [address] Dr. Bruce Nicholas Eosinophils/100 WBC (Bld) 0.7 % Critically low 0.9-7.0 [facility] Comment on above: Performed By: #### C VDTBH #### [facility] [address] [place] [address] Dr. Bruce Nicholas Erythrocyte distribution width (RBC) [Ratio] 15.2 % Critically high 11.0-15.0 [facility] Comment on above: Performed By: #### C VDTBH #### [facility] [address] [place] [address] Dr. Bruce Nicholas Hematocrit (Bld) [Volume fraction] 43.0 % Normal 42.0-54.0 [facility] Comment on above: Performed By: #### C VDTBH #### [facility] [address] [place] [address] Dr. Bruce Nicholas Hemoglobin (Bld) [Mass/Vol] 13.7 g/dL Critically low 14.0-18.0 [facility] Comment on above: Performed By: #### C VDTBH #### [facility] [address] [address] [address] Bruce Nicholas IG # 0.04 10e3/ul Critically high 0.00-0.03 [facility] Comment on above: Performed By: #### C VDTBH #### [facility] [address] [address] [address] Bruce Nicholas IG % 0.5 % Normal 0.0-0.5 [facility] Comment on above: Performed By: #### C VDTBH #### [facility] [address] [place] [address] Dr. Bruce Nicholas LYMPH # 1.6 103/ul Normal 1.2-3.8 [facility] Comment on above: Performed By: #### C VDTBH #### [facility] [address] [address] [address] Bruce Nicholas Lymphocytes/100 WBC (Bld) 18.4 % Critically low 20.5-60.0 [facility] Comment on above: Performed By: #### C VDTBH #### [facility] [address] [place] [address] Dr. Bruce Nicholas MANUAL DIFF REQ NO Normal [facility] Comment on above: Performed By: #### C VDTBH #### [facility] [address] [address] [address] Bruce Nicholas MCH (RBC) [Entitic mass] 28.8 pg Normal 25.9-34.0 [facility] Comment on above: Performed By: #### C VDTBH #### [facility] [address] [address] [address] Bruce Nicholas MCHC (RBC) [Mass/Vol] 31.9 g/dL Normal 29.9-35.2 [facility] Comment on above: Performed By: #### C VDTBH #### [facility] [address] [place] [address] Dr. Bruce Nicholas MCV (RBC) [Entitic vol] 90.3 fL Normal 80.0-94.0 [facility] Comment on above: Performed By: #### C VDTBH #### [facility] [address] [place] [address] Dr. Bruce Nicholas MONO # 0.6 103/ul Normal 0.3-0.8 [facility] Comment on above: Performed By: #### C VDTBH #### [facility] [address] [place] [address] Dr. Bruce Nicholas Monocytes/100 WBC (Bld) 6.5 % Normal 1.7-12.0 [facility] Comment on above: Performed By: #### C VDTBH #### [facility] [address] [place] [address] Dr. Bruce Nicholas NEUT # 6.4 103/ul Normal 1.4-6.5 [facility] Comment on above: Performed By: #### C VDTB #### [facility] [address] [place] [address] Dr. Bruce Nicholas Neutrophils/100 WBC (Bld) 73.7 % Normal 43.0-75.0 [facility] Comment on above: Performed By: #### C VDTBH #### [facility] [address] [place] [address] Dr. Bruce Nicholas Platelet mean volume (Bld) [Entitic vol] 11.6 fL Normal 9.5-13.5 [facility] Comment on above: Performed By: #### C VDTBH #### [facility] [address] [place] [address] Dr. Bruce Nicholas PLT 229 103/ul Normal 150-450 [facility] Comment on above: Performed By: #### C VDTBH #### [facility] [address] [place] [address] Dr. Bruce Nicholas RBC 4.76 106/ul Normal 4.70-6.10 [facility] Comment on above: Performed By: #### C VDTBH #### [facility] [address] [place] [address] Dr. Bruce Nicholas WBC 8.7 103/ul Normal 4.0-11.0 [facility] Comment on above: Performed By: #### C VDTBH #### [facility] [address] [place] [address] Dr. Bruce Nicholas PROF CHEM 8 (BAS METB)on Anion gap [Moles/Vol] 11.1 mmol/L Normal [facility] Comment on above: Performed By: #### C BC #### [facility] [address] [place] [address] Dr. Bruce Nicholas Calcium [Mass/Vol] 9.5 mg/dL Normal 8.5-10.1 [facility] Comment on above: Performed By: #### C BC #### [facility] [address] [place] [address] Dr. Bruce Nicholas Chloride [Moles/Vol] 105 mmol/L Normal 98-107 [facility] Comment on above: Performed By: #### C BC #### [facility] [address] [place] [address] Dr. Bruce Nicholas CO2 [Moles/Vol] 27.5 mmol/L Normal 21.0-32.0 [facility] Comment on above: Performed By: #### C BC #### [facility] [address] [place] [address] Dr. Bruce Nicholas Creatinine [Mass/Vol] 0.73 mg/dL Normal 0.70-1.30 [facility] Comment on above: Performed By: #### C BC #### [facility] [address] [place] [address] Dr. Bruce Nicholas EGFR-AF MOZAMBICAN >60 Normal >=60 [facility] Comment on above: Performed By: #### C BC #### [facility] [address] [place] [address] Dr. Bruce Nicholas EGFR-NON AF MOZAMBICAN >60 Normal >=60 [facility] Comment on above: Performed By: #### C BC #### [facility] [address] [place] [address] Dr. Bruce Nicholas Glucose [Mass/Vol] 97 mg/dL Normal 74-106 [facility] Comment on above: Performed By: #### C BC #### [facility] [address] [address] [address] Bruce Nicholas Potassium [Moles/Vol] 4.1 mmol/L Normal 3.5-5.1 [facility] Comment on above: Performed By: #### C BC #### [facility] [address] [address] [address] Bruce Nicholas Sodium [Moles/Vol] 140 mmol/L Normal 136-145 [facility] Comment on above: Performed By: #### C BC #### [facility] [address] [address] [address] Bruce Nicholas Urea nitrogen [Mass/Vol] 22.0 mg/dL Critically high 7.0-18.0 [facility] Comment on above: Performed By: #### C BC #### [facility] [address] [address] [address] Bruce Nicholas Urea nitrogen/Creatinine [Mass ratio] 30.1 mg/mg Normal [facility] Comment on above: Performed By: #### C BC #### [facility] [address] [address] [address] Bruce KAMon 12-24-2022 NEGIN Office Visit (URFMOB ) ----- ALISIA CORREA ([id number]) 1960 M Date Time Provider Department 12/24/22 11:30 AM SAY REYES URFMTANVIR During your visit today, we recorded the following information about you: Say Reyes APRN.CNP 12/24/2022 5:59 PM Signed The patient did [...] Ulcerative lesio (more content not included)... Normal [facility] CULTURE URINEon 12-21-2022 CULTURE URINE Isolate 1 Pseudomonas aeruginosa >100,000 cfu/mL of ORGANISM 1 Pseudomonas aeruginosa ANTIBIOTIC M.I.C RX STATUS Piperacillin/Tazobactam <=4 S F Ceftazidime <=1 S F Imipenem 1 S F Amikacin <=2 S F Gentamicin <=1 S F Tobramycin <=1 S F Ciprofloxacin <=0.25 S F Levofloxacin 0.25 S F Normal [facility] Comment on above: Performed By: #### U RCX #### [facility] [address] [address] [address] Bruce Nicholas CBC AUTO DIFFon 12-18-2022 BASO # 0.0 103/ul Normal 0.0-0.1 [facility] Comment on above: Performed By: #### P OCGLUC #### [facility] [address] [address] [address] Bruce Nicholas Basophils/100 WBC (Bld) 0.6 % Normal 0.2-2.0 [facility] Comment on above: Performed By: #### P OCGLUC #### [facility] [address] [place] [address] Dr. Bruce Nicholas EO # 0.2 103/ul Normal 0.0-0.7 [facility] Comment on above: Performed By: #### P OCGLUC #### [facility] [address] [place] [address] Dr. Bruce Nicholas Eosinophils/100 WBC (Bld) 3.2 % Normal 0.9-7.0 [facility] Comment on above: Performed By: #### P OCGLUC #### [facility] [address] [place] [address] Dr. Bruce Nicholas Erythrocyte distribution width (RBC) [Ratio] 16.6 % Critically high 11.0-15.0 [facility] Comment on above: Performed By: #### P OCGLUC #### [facility] [address] [place] [address] Dr. Bruce Nicholas Hematocrit (Bld) [Volume fraction] 37.9 % Critically low 42.0-54.0 [facility] Comment on above: Performed By: #### P OCGLUC #### [facility] [address] [place] [address] Dr. Bruce Nicholas Hemoglobin (Bld) [Mass/Vol] 12.0 g/dL Critically low 14.0-18.0 [facility] Comment on above: Performed By: #### P OCGLUC #### [facility] [address] [place] [address] Dr. Bruce Nicholas IG # 0.02 10e3/ul Normal 0.00-0.03 [facility] Comment on above: Performed By: #### P OCGLUC #### [facility] [address] [address] [address] Bruce Nicholas IG % 0.3 % Normal 0.0-0.5 [facility] Comment on above: Performed By: #### P OCGLUC #### [facility] [address] [address] [address] Bruce Nicholas LYMPH # 1.2 103/ul Normal 1.2-3.8 [facility] Comment on above: Performed By: #### P OCGLUC #### [facility] [address] [address] [address] Bruce Nicholas Lymphocytes/100 WBC (Bld) 16.7 % Critically low 20.5-60.0 [facility] Comment on above: Performed By: #### P OCGLUC #### [facility] [address] [place] [address] Dr. Bruce Nicholas MANUAL DIFF REQ NO Normal [facility] Comment on above: Performed By: #### P OCGLUC #### [facility] [address] [address] [address] Bruce Nicholas MCH (RBC) [Entitic mass] 28.4 pg Normal 25.9-34.0 [facility] Comment on above: Performed By: #### P OCGLUC #### [facility] [address] [place] [address] Dr. Bruce Nicholas MCHC (RBC) [Mass/Vol] 31.7 g/dL Normal 29.9-35.2 [facility] Comment on above: Performed By: #### P OCGLUC #### [facility] [address] [address] [address] Bruce Nicholas MCV (RBC) [Entitic vol] 89.6 fL Normal 80.0-94.0 [facility] Comment on above: Performed By: #### P OCGLUC #### [facility] [address] [address] [address] Bruce Nicholas MONO # 0.6 103/ul Normal 0.3-0.8 [facility] Comment on above: Performed By: #### P OCGLUC #### [facility] [address] [address] [address] Bruce Nicholas Monocytes/100 WBC (Bld) 7.9 % Normal 1.7-12.0 [facility] Comment on above: Performed By: #### P OCGLUC #### [facility] [address] [address] [address] Bruce Nicholas NEUT # 5.0 103/ul Normal 1.4-6.5 [facility] Comment on above: Performed By: #### P OCGLUC #### [facility] [address] [address] [address] Bruce Nicholas Neutrophils/100 WBC (Bld) 71.3 % Normal 43.0-75.0 [facility] Comment on above: Performed By: #### P OCGLUC #### [facility] [address] [place] [address] Dr. Bruce Nicholas Platelet mean volume (Bld) [Entitic vol] 12.4 fL Normal 9.5-13.5 [facility] Comment on above: Performed By: #### P OCGLUC #### [facility] [address] [address] [address] Bruce Nicholas PLT 156 103/ul Normal 150-450 [facility] Comment on above: Performed By: #### P OCGLUC #### [facility] [address] [address] [address] Bruce Nicholas RBC 4.23 106/ul Critically low 4.70-6.10 [facility] Comment on above: Performed By: #### P OCGLUC #### [facility] [address] [address] [address] Bruce Nicholas WBC 6.9 103/ul Normal 4.0-11.0 [facility] Comment on above: Performed By: #### P OCGLUC #### [facility] [address] [address] ABD/PELVIS WO CONon 12-18 CT ABD/PELVIS WO CON EXAMINATION: CT ABD/PELVIS WO CON, 12/18/2022 1:17 PM MST HISTORY: Retention of urine COMPARISON: None. TECHNIQUE: CT scan of the abdomen and pelvis was performed without IV contrast. CT dose reduction technique was used, including Automated Exposure Control. FINDINGS: Gas Adjuster: No pertinent findings, which are not already [...] CHE PANDYA Date: 2022-12-18 17:14 Normal [facility] URINE PROFILEon 3 Bilirubin Ql (U) Negative Normal NEGATIVE [facility] Comment on above: Performed By: #### P OCGLUC #### [facility] [address] [address] [address] Bruce Nicholas Clarity (U) CLEAR Normal CLEAR [facility] Comment on above: Performed By: #### P OCGLUC #### [facility] [address] [address] [address] Bruce Nicholas Color (U) BROWN Abnormal YELLOW [facility] Comment on above: Performed By: #### P OCGLUC #### [facility] [address] [address] [address] Bruce Nicholas ERUCARRIE A micrscopic examina tion will be performed if indicated. Normal [facility] Comment on above: Performed By: #### P OCGLUC #### [facility] [address] [place] [address] Dr. Bruce Nicholas Glucose Ql (U) Negative Normal NEGATIVE [facility] Comment on above: Performed By: #### P OCGLUC #### [facility] [address] [address] [address] Bruce Nicholas Hemoglobin Ql (U) MODERATE Abnormal NEGATIVE [facility] Comment on above: Performed By: #### P OCGLUC #### [facility] [address] [place] [address] Dr. Bruce Nicholas Ketones Ql (U) Negative Normal NEGATIVE [facility] Comment on above: Performed By: #### P OCGLUC #### [facility] [address] [address] [address] Bruce Nicholas LEUKOCYTES LARGE Abnormal NEGATIVE [facility] Comment on above: Performed By: #### P OCGLUC #### [facility] [address] [address] [address] Bruce Nicholas Nitrite Ql (U) Positive Abnormal NEGATIVE [facility] Comment on above: Performed By: #### P OCGLUC #### [facility] [address] [place] [address] Dr. Bruce Nicholas pH (U) 6.0 [pH] Normal 5-9 [facility] Comment on above: Performed By: #### P OCGLUC #### [facility] [address] [address] [address] Bruce Nicholas Protein (U) [Mass/Vol] 30 mg/dL Abnormal NEGAT AV/ TRACE [facility] Comment on above: Performed By: #### P OCGLUC #### [facility] [address] [place] [address] Dr. Bruce Nicholas SPEC GRAVITY 1.020 Normal 1.005-<=1. 025 [facility] Comment on above: Performed By: #### P OCGLUC #### [facility] [address] [place] [address] Dr. Bruce Nicholas UR MICRO IND INDICATED Normal [facility] Comment on above: Performed By: #### P OCGLUC #### [facility] [address] [place] [address] Dr. Bruce Nicholas Urobilinogen Qn (U) 1.0 {Phillip'U}/dL Normal 0.2 - 1. 0 [facility] Comment on above: Performed By: #### P OCGLUC #### [facility] [address] [place] [address] Dr. Bruce Nicholas PROF 14(COMP METB)on 023 Albumin [Mass/Vol] 3.0 g/dL Critically low 3.4-5.0 [facility] Comment on above: Performed By: #### C VDTBH #### [facility] [address] [place] [address] Dr. Bruce Nicholas Albumin/Globulin [Mass ratio] 0.9 {ratio} Normal [facility] Comment on above: Performed By: #### C VDTBH #### [facility] [address] [place] [address] Dr. Bruce Nicholas ALP [Catalytic activity/Vol] 112 U/L Normal 46-116 [facility] Comment on above: Performed By: #### C VDTBH #### [facility] [address] [place] [address] Dr. Bruce Nicholas ALT [Catalytic activity/Vol] 7 U/L Critically low 16-63 [facility] Comment on above: Performed By: #### C VDTBH #### [facility] [address] [address] [address] Bruce Nicholas Anion gap [Moles/Vol] 5.6 mmol/L Normal [facility] Comment on above: Performed By: #### C VDTBH #### [facility] [address] [address] [address] Bruce Nicholas AST [Catalytic activity/Vol] 19 U/L Normal 15-37 [facility] Comment on above: Performed By: #### C VDTBH #### [facility] [address] [place] [address] Dr. Bruce Nicholas Bilirubin [Mass/Vol] 0.6 mg/dL Normal 0.2-1.0 [facility] Comment on above: Performed By: #### C VDTBH #### [facility] [address] [place] [address] Dr. Bruce Nicholas Calcium [Mass/Vol] 9.0 mg/dL Normal 8.5-10.1 [facility] Comment on above: Performed By: #### C VDTBH #### [facility] [address] [place] [address] Dr. Bruce Nicholas Chloride [Moles/Vol] 106 mmol/L Normal 98-107 [facility] Comment on above: Performed By: #### C VDTBH #### [facility] [address] [place] [address] Dr. Bruce Nicholas CO2 [Moles/Vol] 29.0 mmol/L Normal 21.0-32.0 [facility] Comment on above: Performed By: #### C VDTBH #### [facility] [address] [place] [address] Dr. Bruce Nicholas Creatinine [Mass/Vol] 0.71 mg/dL Normal 0.70-1.30 [facility] Comment on above: Performed By: #### C VDTBH #### [facility] [address] [place] [address] Dr. Bruce Nicholas EGFR-AF MOZAMBICAN >60 Normal >=60 [facility] Comment on above: Performed By: #### C VDTBH #### [facility] [address] [address] [address] Bruce Nicholas EGFR-NON AF MOZAMBICAN >60 Normal >=60 [facility] Comment on above: Performed By: #### C VDTBH #### [facility] [address] [address] [address] Bruce Nicholas Globulin (S) [Mass/Vol] 3.2 g/dL Normal [facility] Comment on above: Performed By: #### C VDTBH #### [facility] [address] [address] [address] Bruce Nicholas Glucose [Mass/Vol] 93 mg/dL Normal 74-106 [facility] Comment on above: Performed By: #### C VDTBH #### [facility] [address] [place] [address] Dr. Bruce Nicholas Potassium [Moles/Vol] 3.6 mmol/L Normal 3.5-5.1 [facility] Comment on above: Performed By: #### C VDTBH #### [facility] [address] [place] [address] Dr. Bruce Nicholas Protein [Mass/Vol] 6.2 g/dL Critically low 6.4-8.2 [facility] Comment on above: Performed By: #### C VDTBH #### [facility] [address] [place] [address] Dr. Bruce Nicholas Sodium [Moles/Vol] 137 mmol/L Normal 136-145 [facility] Comment on above: Performed By: #### C VDTBH #### [facility] [address] [place] [address] Dr. Bruce Nicholas Urea nitrogen [Mass/Vol] 22.0 mg/dL Critically high 7.0-18.0 [facility] Comment on above: Performed By: #### C VDTBH #### [facility] [address] [place] [address] Dr. Bruce Nicholas Urea nitrogen/Creatinine [Mass ratio] 31.0 mg/mg Normal [facility] Comment on above: Performed By: #### C VDTBH #### [facility] [address] [address] [address] Bruce Nicholas URINE MICROSCOPIC ONLYon BACTERIA SMALL Abnormal NONE SEEN [facility] Comment on above: Performed By: #### P OCGLUC #### [facility] [address] [place] [address] Dr. Bruce Nicholas Bacteria identified Cx Nom (U) INDICATED Normal [facility] Comment on above: Performed By: #### P OCGLUC #### [facility] [address] [address] [address] Bruce Nicholas CAST NONE SEEN Normal NONE SEEN [facility] Comment on above: Performed By: #### P OCGLUC #### [facility] [address] [place] [address] Dr. Bruce Nicholas Crystals LM Nom (Urine sed) NONE SEEN Normal NONE SEEN [facility] Comment on above: Performed By: #### P OCGLUC #### [facility] [address] [place] [address] Dr. Bruce Nicholas Epithelial cells LM Ql (Urine sed) NONE SEEN Normal NONE SEEN /RARE [facility] Comment on above: Performed By: #### P OCGLUC #### [facility] [address] [place] [address] Dr. Bruce Nicholas MUCOUS NONE SEEN Normal NONE SEEN [facility] Comment on above: Performed By: #### P OCGLUC #### [facility] [address] [place] [address] Dr. Bruce Nicholas RBC 10-20 Abnormal 0-2 [facility] Comment on above: Performed By: #### P OCGLUC #### [facility] [address] [place] [address] Dr. Bruce Nicholas WBC 50-75 Abnormal NONE SEEN [facility] Comment on above: Performed By: #### P OCGLUC #### [facility] [address] [place] [address] Dr. Bruce Nicholas CASE MANAGEMon 12-06-2022 CASE MANAGEM Normal [facility] CNDSon 12-06-2022 CNDS Normal [facility] CASE MANAGEMon 12-05-2022 CASE MANAGEM Normal [facility] CONSULT PROGon 12-05-2022 CONSULT PROG Normal [facility] NUTRITIONon 12-05-2022 NUTRITION Normal [facility] SOCIAL WORKon 12-05-2022 SOCIAL WORK Normal [facility] CASE MANAGEMon 12-04-2022 CASE MANAGEM Normal [facility] CONSULTon 12-04-2022 CONSULT Normal [facility] ALLIED HEALTHon 12-03-2022 ALLIED HEALTH Normal [facility] CASE MANAGEMon 12-03-2022 CASE MANAGEM Normal [facility] CBC panel Auto (Bld)on 12-03 Erythrocyte distribution width (RBC) [Ratio] 16.1 % High 11.5-15.0 [facility] Comment on above: Order Comment: Speci men Type: BLOOD SPECIMENOrdering Facility: [facility] Address: [address] [place] [address] Performed By: #### 5 8410-2 ####[facility] LABCLIA [id number] [place] [address] [place] Hematocrit (Bld) [Volume fraction] 38.3 % Low 39.0-51.0 [facility] Comment on above: Order Comment: Speci men Type: BLOOD SPECIMENOrdering Facility: [facility] Address: [address] [place] [address] Performed By: #### 5 8410-2 ####[facility] LABCL[facility] [id number] [place] [address] [place] Hemoglobin (Bld) [Mass/Vol] 12.4 g/dL Low 13.0-17.0 [facility] Comment on above: Order Comment: Speci men Type: BLOOD SPECIMENOrdering Facility: [facility] Address: [address] [place] [address] Performed By: #### 5 8410-2 ####[facility] LABCL[facility] [id number] [place] [address] [place] MCH (RBC) [Entitic mass] 28.1 pg Normal 26.0-34.0 [facility] Comment on above: Order Comment: Speci men Type: BLOOD SPECIMENOrdering Facility: [facility] Address: [address] Performed By: #### 5 8410-2 ####[facility] LABIA [id number] [place] [address] [place] MCHC (RBC) [Mass/Vol] 32.4 g/dL Normal 30.5-36.0 [facility] Comment on above: Order Comment: Speci men Type: BLOOD SPECIMENOrdering Facility: [facility] Address: [address] Performed By: #### 5 8410-2 ####[facility] LABIA [id number] [place] [address] [place] MCV (RBC) [Entitic vol] 86.7 fL Normal 80.0-100.0 [facility] Comment on above: Order Comment: Speci men Type: BLOOD SPECIMENOrdering Facility: [facility] Address: [address] Performed By: #### 5 8410-2 ####[facility] LABIA [id number] [place] [address] [place] Nucleated RBC (Bld) [#/Vol] 10*3/uL Normal <0.01 [facility] Comment on above: Order Comment: Speci men Type: BLOOD SPECIMENOrdering Facility: [facility] Address: [address] Performed By: #### 5 8410-2 ####[facility] LABIA [id number] [place] [address] [place] Platelet mean volume (Bld) [Entitic vol] 13.0 fL High 9.0-12.7 [facility] Comment on above: Order Comment: Speci men Type: BLOOD SPECIMENOrdering Facility: [facility] Address: [address] Performed By: #### 5 8410-2 ####[facility] LABIA [id number] [place] [address] [place] Platelets (Bld) [#/Vol] 144 10*3/uL Low 150-400 [facility] Comment on above: Order Comment: Speci men Type: BLOOD SPECIMENOrdering Facility: [facility] Address: [address] [place], [place] [address] Result Comment: Resu lts checked and verified.No clot detected. Performed By: #### 5 8410-2 ####[facility] LABIA [id number] [place] [address] [place] RBC (Bld) [#/Vol] 4.42 10*6/uL Normal 4.20-6.00 [facility] Comment on above: Order Comment: Speci men Type: BLOOD SPECIMENOrdering Facility: [facility] Address: [address] [place], [place] [address] Performed By: #### 5 8410-2 ####[facility] LABIA [id number] [place] [address] [place] WBC (Bld) [#/Vol] 9.30 10*3/uL Normal 3.70-11.00 [facility] Comment on above: Order Comment: Speci men Type: BLOOD SPECIMENOrdering Facility: [facility] Address: [address] [place], [place] [address] Performed By: #### 5 8410-2 ####[facility] LABIA [id number] [place] [address] [place] CONSULT PROGon 12-03-2022 CONSULT PROG Normal [facility] ECG COMPLETEon 12-03-2022 ECG COMPLETE Normal [facility] Gas and Carbon monoxide pane l (BldV)on 12-03-2022 Base excess Calc (BldV) [Moles/Vol] 1 mmol/L Normal 0-2 [facility] Comment on above: Order Comment: Speci men Type: VENOUS BLOOD SPECIMENOrdering Facility: [facility] Address: [address] [address] Performed By: #### 2 4344-4 ####[facility] [id number] [place] [address] [place] Body temperature 97.52 [degF] Normal [facility] Comment on above: Order Comment: Speci men Type: VENOUS BLOOD SPECIMENOrdering Facility: [facility] Address: [address] [address] Performed By: #### 2 4344-4 ####[facility] [id number] [place] [address] [place] Calcium.ionized (Bld) [Mass/Vol] 1.17 mmol/L Normal 1.08-1.30 [facility] Comment on above: Order Comment: Speci men Type: VENOUS BLOOD SPECIMENOrdering Facility: [facility] Address: [address] [address] Performed By: #### 2 4344-4 ####[facility] [id number] [place] [address] [place] Calcium.ionized adjusted to pH 7.4 (BldA) [Moles/Vol] 1.19 mmol/L Normal 1.08-1.30 [facility] Comment on above: Order Comment: Speci men Type: VENOUS BLOOD SPECIMENOrdering Facility: [facility] Address: [address] Performed By: #### 2 4344-4 ####[facility] [id number] [place] [address] [place] Carboxyhemoglobin (BldV) [Mass fraction] 0.6 % Normal 0.0-2.0 [facility] Comment on above: Order Comment: Speci men Type: VENOUS BLOOD SPECIMENOrdering Facility: [facility] Address: [address] [place] [address] Result Comment: Carb oxyhemoglobin Reference Range for Smokers: 2.0-8.0% Performed By: #### 2 4344-4 ####[facility] LABCLIA [id number] [address] [place] CO2 (BldV) [Partial pressure] 38 mm[Hg] Low 42-55 [facility] Comment on above: Order Comment: Speci men Type: VENOUS BLOOD SPECIMENOrdering Facility: [facility] Address: [address] [address] Performed By: #### 2 4344-4 ####[facility]CL[facility] [id number] [place] [address] [place] CO2 [Moles/Vol] 26 mmol/L Normal 25-29 [facility] Comment on above: Order Comment: Speci men Type: VENOUS BLOOD SPECIMENOrdering Facility: [facility] Address: [address] [address] Performed By: #### 2 4344-4 ####[facility]CLIA [id number] [address] [place] CO2 adjusted to patient's actual temperature (BldV) [Partial pressure] 37 mmHg Low 42-55 [facility] Comment on above: Order Comment: Speci men Type: VENOUS BLOOD SPECIMENOrdering Facility: [facility] Address: [address] Performed By: #### 2 4344-4 ####[facility] LABCLIA [id number] [place] [address] [place] Glucose [Mass/Vol] 110 mg/dL High 60-105 [facility] Comment on above: Order Comment: Speci men Type: VENOUS BLOOD SPECIMENOrdering Facility: [facility] Address: [address] [address] Performed By: #### 2 4344-4 ####[facility]CLIA [id number] [place] [address] [place] HCO3 (Bld) [Moles/Vol] 25 mmol/L Normal 24-28 [facility] Comment on above: Order Comment: Speci men Type: VENOUS BLOOD SPECIMENOrdering Facility: [facility] Address: [address] [place] [address] Performed By: #### 2 4344-4 ####[facility] LABIA [id number] [place] [address] [place] Hematocrit (Bld) [Volume fraction] 36.2 % Low 39.0-51.0 [facility] Comment on above: Order Comment: Speci men Type: VENOUS BLOOD SPECIMENOrdering Facility: [facility] Address: [address] [place] [address] Performed By: #### 2 4344-4 ####[facility] [id number] [address] [place] Hemoglobin (Bld) [Mass/Vol] 11.8 g/dL Low 13.0-17.0 [facility] Comment on above: Order Comment: Speci men Type: VENOUS BLOOD SPECIMENOrdering Facility: [facility] Address: [address] [place], [place] [address] Performed By: #### 2 4344-4 ####[facility] LABIA [id number] [place] [address] [place] Lactate [Moles/Vol] 1.2 mmol/L Normal 0.5-2.2 [facility] Comment on above: Order Comment: Speci men Type: VENOUS BLOOD SPECIMENOrdering Facility: [facility] Address: [address] [place], [place] [address] Performed By: #### 2 4344-4 ####[facility] LABIA [id number] [place] [address] [place] Methemoglobin (Bld) [Mass fraction] 1.5 % Normal 0.0-1.5 [facility] Comment on above: Order Comment: Speci men Type: VENOUS BLOOD SPECIMENOrdering Facility: [facility] Address: [address] [place] [address] Performed By: #### 2 4344-4 ####[facility] LABCLIA [id number] [address] OF [facility] O2 THERAPY RA=Room Air Normal [facility] Comment on above: Order Comment: Speci men Type: VENOUS BLOOD SPECIMENOrdering Facility: [facility] Address: [address] Performed By: #### 2 4344-4 ####[facility] LABCLIA [id number] [address] [place] Oxygen (BldV) [Partial pressure] 56 mm[Hg] High 35-45 [facility] Comment on above: Order Comment: Speci men Type: VENOUS BLOOD SPECIMENOrdering Facility: [facility] Address: [address] [place] [address] Performed By: #### 2 4344-4 ####[facility] LABCLIA [id number] [address] [place] Oxygen adjusted to patient's actual temperature (BldV) [Partial pressure] 54 mmHg High 35-45 [facility] Comment on above: Order Comment: Speci men Type: VENOUS BLOOD SPECIMENOrdering Facility: [facility] Address: [address] [place] [address] Performed By: #### 2 4344-4 ####[facility] LABCLIA [id number] [place] [address] [place] Oxygen saturation in Venous blood 88 % High 60-85 [facility] Comment on above: Order Comment: Speci men Type: VENOUS BLOOD SPECIMENOrdering Facility: [facility] Address: [address] [place] [address] Performed By: #### 2 4344-4 ####[facility]CLIA [id number] [place] [address] [place] Oxyhemoglobin (BldV) [Mass fraction] 86 % High 60-85 [facility] Comment on above: Order Comment: Speci men Type: VENOUS BLOOD SPECIMENOrdering Facility: [facility] Address: [address] [place] [address] Performed By: #### 2 4344-4 ####[facility] LABIA [id number] [place] [address] [place] pH (BldV) 7.43 [pH] High 7.32-7.42 [facility] Comment on above: Order Comment: Speci men Type: VENOUS BLOOD SPECIMENOrdering Facility: [facility] Address: [address] [place] [address] Performed By: #### 2 4344-4 ####[facility] LABIA [id number] [place] [address] [place] pH adjusted to patient's actual temperature (BldV) 7.44 High 7.32-7.42 [facility] Comment on above: Order Comment: Speci men Type: VENOUS BLOOD SPECIMENOrdering Facility: [facility] Address: [address] [place] [address] Performed By: #### 2 4344-4 ####[facility] LABIA [id number] [place] [address] [place] Potassium [Moles/Vol] 3.7 mmol/L Normal 3.5-5.0 [facility] Comment on above: Order Comment: Speci men Type: VENOUS BLOOD SPECIMENOrdering Facility: [facility] Address: [address] [place] [address] Performed By: #### 2 4344-4 ####[facility] LABIA [id number] [place] [address] [place] Sodium [Moles/Vol] 136 mmol/L Normal 136-144 [facility] Comment on above: Order Comment: Speci men Type: VENOUS BLOOD SPECIMENOrdering Facility: [facility] Address: [address] [place], [place] [address] Performed By: #### 2 4344-4 ####[facility] LABCLIA [id number] [place] [address] [place] MEDICAL EMERon 12-03-2022 MEDICAL KALEB Normal [facility] Magnesium SerPl-mCncon 12-03 Magnesium [Mass/Vol] 2.0 mg/dL Normal 1.7-2.3 [facility] Comment on above: Order Comment: Speci men Type: BLOOD SPECIMENOrdering Facility: [facility] Address: [address] [place], [place] [address] Performed By: #### 2 4362-6, 54730-1 ####[facility] LABCLIA [id number] [place] [address] [place] NURSING PROGon 12-03-2022 NURSING PROG Normal [facility] Renal function 2000 panelon 12-03-2022 Albumin [Mass/Vol] 3.0 g/dL Low 3.9-4.9 [facility] Comment on above: Order Comment: Speci men Type: BLOOD SPECIMENOrdering Facility: [facility] Address: [address] [place], [place] [phone] Performed By: #### 2 4362-6, ####[facility] LABCLIA [id number] [place] [address] [place] Anion gap [Moles/Vol] 9 mmol/L Normal 9-18 [facility] Comment on above: Order Comment: Speci men Type: BLOOD SPECIMENOrdering Facility: [facility] Address: [address] [place], [place] [address] Performed By: #### 2 4362-6, ####[facility] LABCLIA [id number] [place] [address] [place] Calcium [Mass/Vol] 8.9 mg/dL Normal 8.5-10.2 [facility] Comment on above: Order Comment: Speci men Type: BLOOD SPECIMENOrdering Facility: [facility] Address: [address] [place] [address] Performed By: #### 2 4362-6, ####[facility] LABCLIA [id number] [place] [address] [place] Chloride [Moles/Vol] 104 mmol/L Normal 97-105 [facility] Comment on above: Order Comment: Speci men Type: BLOOD SPECIMENOrdering Facility: [facility] Address: [address] [place] [address] Performed By: #### 2 4366, ####[facility] LABCLIA [id number] [place] [address] [place] CO2 [Moles/Vol] 25 mmol/L Normal 22-30 [facility] Comment on above: Order Comment: Speci men Type: BLOOD SPECIMENOrdering Facility: [facility] Address: [address] [place], [place] [address] Performed By: #### 2 436-6, ####[facility] LABCLIA [id number] [place] [address] [place] Creatinine [Mass/Vol] 0.62 mg/dL Low 0.73-1.22 [facility] Comment on above: Order Comment: Speci men Type: BLOOD SPECIMENOrdering Facility: [facility] Address: [address] [place], [place] [address] Performed By: #### 2 436-6, ####[facility] LABCLIA [id number] [place] [address] [place] ESTIMATED GLOMERULAR FILTRATION RATE 107 mL/min/1.73m??? Normal >=60 [facility] Comment on above: Order Comment: Chaz trevizo Type: BLOOD SPECIMENOrdering Facility: [facility] Address: [address] [place], [place] [phone] Result Comment: Karina mated Glomerular Filtration Rate [...] actual GFR. Performed By: #### 2 4362-6, 21887-0 ####[facility] [id number] [place] [address] [place] Glucose [Mass/Vol] 87 mg/dL Normal 74-99 [facility] Comment on above: Order Comment: Chaz trevizo Type: BLOOD SPECIMENOrdering Facility: [facility] Address: [address] [place] [address] Result Comment: The [place] [employer] (ADA) provides guidance for cutoff [...] Standards of Medical Care in Diabetes 2016, [place] [employer]. Diabetes Care. 2016.39(Suppl 1). Performed By: #### 2 4362-6, 76067-2 ####[facility] [id number] [place] [address] [place] Phosphate [Mass/Vol] 2.4 mg/dL Low 2.7-4.8 [facility] Comment on above: Order Comment: Chaz trevizo Type: BLOOD SPECIMENOrdering Facility: [facility] Address: [address] [place] [address] Performed By: #### 2 4362-6, ####[facility] LABIA [id number] [place] [address] [place] Potassium [Moles/Vol] 3.8 mmol/L Normal 3.7-5.1 [facility] Comment on above: Order Comment: Speci men Type: BLOOD SPECIMENOrdering Facility: [facility] Address: [address] Performed By: #### 2 4362-6, ####[facility] LABIA [id number] [place] [address] [place] Sodium [Moles/Vol] 138 mmol/L Normal 136-144 [facility] Comment on above: Order Comment: Speci men Type: BLOOD SPECIMENOrdering Facility: [facility] Address: [address] [place], [place] [phone] Performed By: #### 2 4362-6, ####[facility] LABIA [id number] [place] [address] [place] Urea nitrogen [Mass/Vol] 24 mg/dL Normal 9-24 [facility] Comment on above: Order Comment: Speci men Type: BLOOD SPECIMENOrdering Facility: [facility] Address: [address] [place] [address] Performed By: #### 2 4362-6, ####[facility] LABIA [id number] [place] [id number] [place] THERAPY NTon 12-03-2022 THERAPY NT Normal [facility] Basic metabolic 2000 panelon 12-02-2022 Anion gap [Moles/Vol] 7 mmol/L Low 9-18 [facility] Comment on above: Order Comment: Speci men Type: BLOOD SPECIMENOrdering Facility: [facility] Address: [address] [place] [address] Performed By: #### 1 9123-9, 2777-1, 06350-5 ####[facility] LABCLIA [id number] [place] [address] [place] Calcium [Mass/Vol] 8.5 mg/dL Normal 8.5-10.2 [facility] Comment on above: Order Comment: Speci men Type: BLOOD SPECIMENOrdering Facility: [facility] Address: [address] [place] [address] Performed By: #### 1 9123-9, 2777-1, 05912-9 ####[facility] LABCLIA [id number] [place] [address] [place] Chloride [Moles/Vol] 106 mmol/L High 97-105 [facility] Comment on above: Order Comment: Speci men Type: BLOOD SPECIMENOrdering Facility: [facility] Address: [address] [place] [address] Performed By: #### 1 9123-9, 2777, 38582-1 ####[facility] LABCLIA [id number] [place] [address] [place] CO2 [Moles/Vol] 27 mmol/L Normal 22-30 [facility] Comment on above: Order Comment: Speci men Type: BLOOD SPECIMENOrdering Facility: [facility] Address: [address] [place], [place] [phone] Performed By: #### 1 9123-9, 2777, 90998-1 ####[facility] LABCLIA [id number] [place] [address] [place] Creatinine [Mass/Vol] 0.69 mg/dL Low 0.73-1.22 [facility] Comment on above: Order Comment: Speci men Type: BLOOD SPECIMENOrdering Facility: [facility] Address: [address] [place], [place] [phone] Performed By: #### 1 9123-9, 2777-1, 87861-8 ####[facility] LABCLIA [id number] [address] [place] ESTIMATED GLOMERULAR FILTRATION RATE 103 mL/min/1.73m??? Normal >=60 [facility] Comment on above: Order Comment: Chaz trevizo Type: BLOOD SPECIMENOrdering Facility: [facility] Address: [address] [place] [address] Result Comment: Karina mated Glomerular Filtration Rate [...] actual GFR. Performed By: #### 1 9123-9, 2777-, 05082-4 ####[facility] LABCLIA [id number] [address] OF [facility] Glucose [Mass/Vol] 78 mg/dL Normal 74-99 [facility] Comment on above: Order Comment: Chaz trevizo Type: BLOOD SPECIMENOrdering Facility: [facility] Address: [address] [place] [address] Result Comment: The [place] [employer] (ADA) provides guidance for cutoff [...] Standards of Medical Care in Diabetes 2016, [place] [employer]. Diabetes Care. 2016.39(Suppl 1). Performed By: #### 1 9123-9, 2777-, 52202-0 ####[facility] LABCLIA [id number] [place] [address] [place] Potassium [Moles/Vol] 3.6 mmol/L Low 3.7-5.1 [facility] Comment on above: Order Comment: Speci men Type: BLOOD SPECIMENOrdering Facility: [facility] Address: [address] [place] [address] Performed By: #### 1 9123-9, 2777-, 62074-5 ####[facility] LABIA [id number] [place] [address] [place] Sodium [Moles/Vol] 140 mmol/L Normal 136-144 [facility] Comment on above: Order Comment: Speci men Type: BLOOD SPECIMENOrdering Facility: [facility] Address: [address] [place] [address] Performed By: #### 1 9123-9, 2777, 53605-6 ####[facility] LABIA [id number] [place] [address] [place] Urea nitrogen [Mass/Vol] 26 mg/dL High 9-24 [facility] Comment on above: Order Comment: Speci men Type: BLOOD SPECIMENOrdering Facility: [facility] Address: [address] [place] [address] Performed By: #### 1 9123-9, 2777, 08150-2 ####[facility] LABIA [id number] [place] [address] [place] CASE MANAGEMon 12-02-2022 CASE MANAGEM Normal [facility] CBC panel Auto (Bld)on 12-02 Erythrocyte distribution width (RBC) [Ratio] 16.2 % High 11.5-15.0 [facility] Comment on above: Order Comment: Speci men Type: BLOOD SPECIMENOrdering Facility: [facility] Address: [address] [place] [address] Performed By: #### 5 8410-2 ####[facility] LABIA [id number] [address] [place] Hematocrit (Bld) [Volume fraction] 39.0 % Normal 39.0-51.0 [facility] Comment on above: Order Comment: Speci men Type: BLOOD SPECIMENOrdering Facility: [facility] Address: [address] [place], [place] [phone] Performed By: #### 5 8410-2 ####[facility] LABIA [id number] [place] [address] [place] Hemoglobin (Bld) [Mass/Vol] 12.6 g/dL Low 13.0-17.0 [facility] Comment on above: Order Comment: Speci men Type: BLOOD SPECIMENOrdering Facility: [facility] Address: [address] [place], [place] [address] Performed By: #### 5 8410-2 ####[facility] [id number] [address] [place] MCH (RBC) [Entitic mass] 27.8 pg Normal 26.0-34.0 [facility] Comment on above: Order Comment: Speci men Type: BLOOD SPECIMENOrdering Facility: [facility] Address: [address] [place], [place] [address] Performed By: #### 5 8410-2 ####[facility] LABIA [id number] [address] [place] MCHC (RBC) [Mass/Vol] 32.3 g/dL Normal 30.5-36.0 [facility] Comment on above: Order Comment: Speci men Type: BLOOD SPECIMENOrdering Facility: [facility] Address: [address] [place], [place] [phone] Performed By: #### 5 8410-2 ####[facility] [id number] [address] [address] MCV (RBC) [Entitic vol] 85.9 fL Normal 80.0-100.0 [facility] Comment on above: Order Comment: Speci men Type: BLOOD SPECIMENOrdering Facility: [facility] Address: [address] [place] [address] Performed By: #### 5 8410-2 ####[facility] LABIA [id number] [address] [place] Nucleated RBC (Bld) [#/Vol] 10*3/uL Normal <0.01 [facility] Comment on above: Order Comment: Speci men Type: BLOOD SPECIMENOrdering Facility: [facility] Address: [address] [place] [address] Performed By: #### 5 8410-2 ####[facility] LABIA [id number] [address] [place] Platelet mean volume (Bld) [Entitic vol] 12.8 fL High 9.0-12.7 [facility] Comment on above: Order Comment: Speci men Type: BLOOD SPECIMENOrdering Facility: [facility] Address: [address] [place] [address] Performed By: #### 5 8410-2 ####[facility] [id number] [address] OF [facility] Platelets (Bld) [#/Vol] 129 10*3/uL Low 150-400 [facility] Comment on above: Order Comment: Speci men Type: BLOOD SPECIMENOrdering Facility: [facility] Address: [address] [place], [place] [address] Result Comment: No c lot detected.Results checked and verified. Performed By: #### 5 8410-2 ####[facility] LABCLIA [id number] [place] [address] [place] RBC (Bld) [#/Vol] 4.54 10*6/uL Normal 4.20-6.00 [facility] Comment on above: Order Comment: Speci men Type: BLOOD SPECIMENOrdering Facility: [facility] Address: [address] [place] [address] Performed By: #### 5 8410-2 ####[facility] LABCLIA [id number] [place] [address] [place] WBC (Bld) [#/Vol] 9.16 10*3/uL Normal 3.70-11.00 [facility] Comment on above: Order Comment: Speci men Type: BLOOD SPECIMENOrdering Facility: [facility] Address: [address] [place] [address] Performed By: #### 5 8410-2 ####[facility] LABCLIA [id number] [place] [address] [place] CONSULT PROGon 12-02-2022 CONSULT PROG Normal [facility] ECG COMPLETEon 12-02-2022 ECG COMPLETE Normal [facility] Magnesium SerPl-mCncon 12-02 Magnesium [Mass/Vol] 1.8 mg/dL Normal 1.7-2.3 [facility] Comment on above: Order Comment: Speci men Type: BLOOD SPECIMENOrdering Facility: [facility] Address: [address] [place] [address] Performed By: #### 1 9123-9, 2777-1, 08721-3 ####[facility] LABCLIA [id number] [place] [address] [place] Phosphate SerPl-mCncon 12-02 Phosphate [Mass/Vol] 2.7 mg/dL Normal 2.7-4.8 [facility] Comment on above: Order Comment: Speci men Type: BLOOD SPECIMENOrdering Facility: [facility] Address: [address] [place] [address] Performed By: #### 1 9123-9, 2777-1, 65579-8 ####[facility] LABCLIA [id number] [place] [address] [place] THERAPY NTon 12-02-2022 THERAPY NT Normal [facility] Basic metabolic 2000 panelon 12-01-2022 Anion gap [Moles/Vol] 10 mmol/L Normal 07-06 [facility] Comment on above: Order Comment: Speci men Type: BLOOD SPECIMENOrdering Facility: [facility] Address: [address] [place] [address] Performed By: #### 2 4321-2 ####[facility] LABCLIA [id number] [address] [place] Anion gap [Moles/Vol] 7 mmol/L Low - [facility] Comment on above: Order Comment: Speci men Type: BLOOD SPECIMENOrdering Facility: [facility] Address: [address] [place], [place] [phone] Performed By: #### 2 4321-2, 27704-18, ####[facility] LABCLIA [id number] [place] [address] [place] Calcium [Mass/Vol] 8.8 mg/dL Normal 8.5-10.2 [facility] Comment on above: Order Comment: Speci men Type: BLOOD SPECIMENOrdering Facility: [facility] Address: [address] [place] [address] Performed By: #### 2 4321-2 ####[facility] LABCLIA [id number] [place] [address] [place] Calcium [Mass/Vol] 8.9 mg/dL Normal 8.5-10.2 [facility] Comment on above: Order Comment: Speci men Type: BLOOD SPECIMENOrdering Facility: [facility] Address: [address] [place] [address] Performed By: #### 2 4321-2, 2777, ####[facility] LABCLIA [id number] [place] [address] [place] Chloride [Moles/Vol] 103 mmol/L Normal 97-105 [facility] Comment on above: Order Comment: Speci men Type: BLOOD SPECIMENOrdering Facility: [facility] Address: [address] [place] [address] Performed By: #### 2 4321-2 ####[facility] LABCLIA [id number] [place] [address] [place] Chloride [Moles/Vol] 104 mmol/L Normal 97-105 [facility] Comment on above: Order Comment: Speci men Type: BLOOD SPECIMENOrdering Facility: [facility] Address: [address] [place] [address] Performed By: #### 2 4321-2, 277-, ####[facility] LABCLIA [id number] [place] [address] [place] CO2 [Moles/Vol] 25 mmol/L Normal 22-30 [facility] Comment on above: Order Comment: Speci men Type: BLOOD SPECIMENOrdering Facility: [facility] Address: [address] [place] [address] Performed By: #### 2 4321-2 ####[facility] LABCLIA [id number] [address] [place] Performed By: #### 2 4321-2, 277-1, ####[facility] LABCLIA [id number] [place] [address] [place] Creatinine [Mass/Vol] 0.93 mg/dL Normal 0.73-1.22 [facility] Comment on above: Order Comment: Speci men Type: BLOOD SPECIMENOrdering Facility: [facility] Address: [address] [place], [place] [phone] Performed By: #### 2 4321-2 ####[facility] LABCLIA [id number] [address] [address] [facility] Performed By: #### 2 4321-2, 2777-1, ####[facility] LABIA [id number] [address] [address] [facility] ESTIMATED GLOMERULAR FILTRATION RATE 92 mL/min/1.73m??? Normal >=60 [facility] Comment on above: Order Comment: Speci men Type: BLOOD SPECIMENOrdering Facility: [facility] Address: [address] [place] [address] Result Comment: Karina mated Glomerular Filtration Rate [...] actual GFR. Performed By: #### 2 4321-2 ####[facility] LABCLIA [id number] [address] [address] [facility] Performed By: #### 2 4321-2, 2777-1, ####[facility] LABIA [id number] [place] [address] [facility] Glucose [Mass/Vol] 81 mg/dL Normal 74-99 [facility] Comment on above: Order Comment: Speci men Type: BLOOD SPECIMENOrdering Facility: [facility] Address: [address] [place] [address] Result Comment: The [place] [employer] (ADA) provides guidance for cutoff [...] Standards of Medical Care in Diabetes 2016, [place] [employer]. Diabetes Care. 2016.39(Suppl 1). Performed By: #### 2 4321-2 ####[facility] LABCLIA [id number] [address] OF [facility] Performed By: #### 2 4321-2, 2776-10, ####[facility] LABCLIA [id number] [place] [address] [place] Potassium [Moles/Vol] 4.2 mmol/L Normal 3.7-5.1 [facility] Comment on above: Order Comment: Speci men Type: BLOOD SPECIMENOrdering Facility: [facility] Address: [address] [place] [address] Performed By: #### 2 432-2 ####[facility] LABCLIA [id number] [address] [place] Potassium [Moles/Vol] 4.3 mmol/L Normal 3.7-5.1 [facility] Comment on above: Order Comment: Speci men Type: BLOOD SPECIMENOrdering Facility: [facility] Address: [address] [place] [address] Performed By: #### 2 4321-2, 2776-10, ####[facility] LABCLIA [id number] [place] [address] [place] Sodium [Moles/Vol] 138 mmol/L Normal 136-144 [facility] Comment on above: Order Comment: Speci men Type: BLOOD SPECIMENOrdering Facility: [facility] Address: [address] [place] [address] Performed By: #### 2 4321-2 ####[facility] LABCLIA [id number] [place] [address] [place] Sodium [Moles/Vol] 136 mmol/L Normal 136-144 [facility] Comment on above: Order Comment: Speci men Type: BLOOD SPECIMENOrdering Facility: [facility] Address: [address] [place] [address] Performed By: #### 2 4321-2, 277-1, ####[facility] LABIA [id number] [place] [address] [place] Urea nitrogen [Mass/Vol] 34 mg/dL High 9-24 [facility] Comment on above: Order Comment: Speci men Type: BLOOD SPECIMENOrdering Facility: [facility] Address: [address] [place] [address] Performed By: #### 2 4321-2 ####[facility] [id number] [address] [place] Urea nitrogen [Mass/Vol] 35 mg/dL High 9-24 [facility] Comment on above: Order Comment: Speci men Type: BLOOD SPECIMENOrdering Facility: [facility] Address: [address] [place] [address] Performed By: #### 2 4321-2, 2776-10, ####[facility] LABIA [id number] [place] [address] [place] CBC panel Auto (Bld)on 12-01 Erythrocyte distribution width (RBC) [Ratio] 16.6 % High 11.5-15.0 [facility] Comment on above: Order Comment: Speci men Type: BLOOD SPECIMENOrdering Facility: [facility] Address: [address] [place] [address] Performed By: #### 5 8410-2 ####[facility]IA [id number] [place] [address] [place] Hematocrit (Bld) [Volume fraction] 38.1 % Low 39.0-51.0 [facility] Comment on above: Order Comment: Speci men Type: BLOOD SPECIMENOrdering Facility: [facility] Address: [address] [place] [address] Performed By: #### 5 8410-2 ####[facility] LABCLIA [id number] [place] [address] [place] Hemoglobin (Bld) [Mass/Vol] 12.5 g/dL Low 13.0-17.0 [facility] Comment on above: Order Comment: Speci men Type: BLOOD SPECIMENOrdering Facility: [facility] Address: [address] [place] [address] Performed By: #### 5 8410-2 ####[facility] LABCLIA [id number] [address] [place] MCH (RBC) [Entitic mass] 28.1 pg Normal 26.0-34.0 [facility] Comment on above: Order Comment: Speci men Type: BLOOD SPECIMENOrdering Facility: [facility] Address: [address] [place], [place] [address] Performed By: #### 5 8410-2 ####[facility] LABIA [id number] [place] [address] [place] MCHC (RBC) [Mass/Vol] 32.8 g/dL Normal 30.5-36.0 [facility] Comment on above: Order Comment: Speci men Type: BLOOD SPECIMENOrdering Facility: [facility] Address: [address] [place], [place] [address] Performed By: #### 5 8410-2 ####[facility] LABCLIA [id number] [place] [address] [place] MCV (RBC) [Entitic vol] 85.6 fL Normal 80.0-100.0 [facility] Comment on above: Order Comment: Speci men Type: BLOOD SPECIMENOrdering Facility: [facility] Address: [address] [address] Performed By: #### 5 8410-2 ####[facility] [id number] [place] [address] [place] Nucleated RBC (Bld) [#/Vol] 10*3/uL Normal <0.01 [facility] Comment on above: Order Comment: Speci men Type: BLOOD SPECIMENOrdering Facility: [facility] Address: [address] [address] Performed By: #### 5 8410-2 ####[facility] [id number] [place] [address] [place] Platelet mean volume (Bld) [Entitic vol] 12.5 fL Normal 9.0-12.7 [facility] Comment on above: Order Comment: Speci men Type: BLOOD SPECIMENOrdering Facility: [facility] Address: [address] [place] [address] Performed By: #### 5 8410-2 ####[facility] [id number] [place] [address] [place] Platelets (Bld) [#/Vol] 121 10*3/uL Low 150-400 [facility] Comment on above: Order Comment: Speci men Type: BLOOD SPECIMENOrdering Facility: [facility] Address: [address] [place], [place] [address] Result Comment: Resu lts checked and verified.No clot detected. Performed By: #### 5 8410-2 ####[facility] [id number] [place] [address] [place] RBC (Bld) [#/Vol] 4.45 10*6/uL Normal 4.20-6.00 [facility] Comment on above: Order Comment: Speci men Type: BLOOD SPECIMENOrdering Facility: [facility] Address: [address] [place], [place] [address] Performed By: #### 5 8410-2 ####[facility] LABCLIA [id number] [place] [address] [place] WBC (Bld) [#/Vol] 9.67 10*3/uL Normal 3.70-11.00 [facility] Comment on above: Order Comment: Speci men Type: BLOOD SPECIMENOrdering Facility: [facility] Address: [place] [address] Performed By: #### 5 8410-2 ####[facility] LABCLIA [id number] [place] [address] [place] CONSULTon 12-01-2022 CONSULT Normal [facility] ECG COMPLETEon 12-01-2022 ECG COMPLETE Normal [facility] HISTORY PHYSICALon HISTORY PHYSICAL Normal [facility] Magnesium SerPl-ncon 12-01 Magnesium [Mass/Vol] 2.0 mg/dL Normal 1.7-2.3 [facility] Comment on above: Order Comment: Speci men Type: BLOOD SPECIMENOrdering Facility: [facility] Address: [address] [place] [address] Performed By: #### 2 4321-2, 2776-10, ####[facility] LABCLIA [id number] [place] [address] [place] NUTRITIONon 12-01-2022 NUTRITION Normal [facility] Phosphate SerPl-mCncon 12-01 Phosphate [Mass/Vol] 2.3 mg/dL Low 2.7-4.8 [facility] Comment on above: Order Comment: Speci men Type: BLOOD SPECIMENOrdering Facility: [facility] Address: [place] [address] Performed By: #### 2 4321-2, 2777-1, ####[facility] LABCLIA [id number] [place] [address] [place] SEPSIS LACTATEon 12-01-2022 Lactate [Moles/Vol] 0.9 mmol/L Normal <=2.0 [facility] Comment on above: Order Comment: Speci men Type: BLOOD SPECIMENOrdering Facility: [facility] Address: [address] [place] [address] Performed By: #### S LACT ####[facility] LABCLIA [id number] [place] [address] [place] THERAPY NTon 12-01-2022 THERAPY NT Normal [facility] US KIDNEY/BLADDERon 12-01-19 23 US KIDNEY/BLADDER Normal [facility] US LEG VEIN DVT [facility] LABo n 12-01-2022 US LEG VEIN DVT [facility] LAB Normal [facility] Bacteria Bld Culton 11-30-19 Bacteria identified Cx Nom (Bld) CULTURE, BLOOD: No growth 5 days Normal [facility] Comment on above: Performed By: #### 6 00-7 ####[facility] LABCLIA [id number] [place] [address] [place] Basic metabolic 2000 panelon 11-30-2022 Anion gap [Moles/Vol] 9 mmol/L Normal 9-18 [facility] Comment on above: Order Comment: Speci men Type: BLOOD SPECIMENOrdering Facility: [facility] Address: [address] [place], [place] [phone] Performed By: #### 2 777-1, 36645-6, ####[facility] LABCLIA [id number] [place] [address] [place] Calcium [Mass/Vol] 8.7 mg/dL Normal 8.5-10.2 [facility] Comment on above: Order Comment: Speci men Type: BLOOD SPECIMENOrdering Facility: [facility] Address: [address] [place] [address] Performed By: #### 2 777-1, , ####[facility] LABIA [id number] [place] [address] [place] Chloride [Moles/Vol] 106 mmol/L High 97-105 [facility] Comment on above: Order Comment: Speci men Type: BLOOD SPECIMENOrdering Facility: [facility] Address: [address] [place] [address] Performed By: #### 2 777-1, , ####[facility] LABIA [id number] [place] [address] [place] CO2 [Moles/Vol] 22 mmol/L Normal 22-30 [facility] Comment on above: Order Comment: Speci men Type: BLOOD SPECIMENOrdering Facility: [facility] Address: [address] [place] [address] Performed By: #### 2 777-1, , ####[facility] [id number] [place] [address] [place] Creatinine [Mass/Vol] 0.96 mg/dL Normal 0.73-1.22 [facility] Comment on above: Order Comment: Speci men Type: BLOOD SPECIMENOrdering Facility: [facility] Address: [address] [place] [address] Performed By: #### 2 777-1, , ####[facility] [id number] [place] [address] [place] ESTIMATED GLOMERULAR FILTRATION RATE 88 mL/min/1.73m??? Normal >=60 [facility] Comment on above: Order Comment: Speci men Type: BLOOD SPECIMENOrdering Facility: [facility] Address: [address] [place], [place] [phone] Result Comment: Karina mated Glomerular Filtration Rate [...] actual GFR. Performed By: #### 2 777-1, 29108-1, ####[facility] LABCLIA [id number] [place] [address] [place] Glucose [Mass/Vol] 109 mg/dL High 74-99 [facility] Comment on above: Order Comment: Chaz trevizo Type: BLOOD SPECIMENOrdering Facility: [facility] Address: [address] [address] Result Comment: The [place] [employer] (ADA) provides guidance for cutoff [...] Standards of Medical Care in Diabetes 2016, [place] [employer]. Diabetes Care. 2016.39(Suppl 1). Performed By: #### 2 777-1, , ####[facility] LABCLIA [id number] [place] [address] [place] Potassium [Moles/Vol] 4.3 mmol/L Normal 3.7-5.1 [facility] Comment on above: Order Comment: Chaz trevizo Type: BLOOD SPECIMENOrdering Facility: [facility] Address: [address] [phone] Performed By: #### 2 777-1, 56787-3, ####[facility] LABCLIA [id number] [place] [address] [place] Sodium [Moles/Vol] 137 mmol/L Normal 136-144 [facility] Comment on above: Order Comment: Speci men Type: BLOOD SPECIMENOrdering Facility: [facility] Address: [address] [place] [address] Performed By: #### 2 777-1, 48167-1, 84449-5 ####[facility] LABCLIA [id number] [place] [address] [place] Urea nitrogen [Mass/Vol] 36 mg/dL High 9-24 [facility] Comment on above: Order Comment: Speci men Type: BLOOD SPECIMENOrdering Facility: [facility] Address: [address] [place] [address] Performed By: #### 2 777-1, 12049-6, ####[facility] LABCLIA [id number] [place] [address] [place] CBC panel Auto (Bld)on 11-30 Erythrocyte distribution width (RBC) [Ratio] 17.2 % High 11.5-15.0 [facility] Comment on above: Order Comment: Speci men Type: BLOOD SPECIMENOrdering Facility: [facility] Address: [address] [place] [address] Performed By: #### 5 8410-2 ####[facility] LABCLIA [id number] [place] [address] [place] Hematocrit (Bld) [Volume fraction] 36.4 % Low 39.0-51.0 [facility] Comment on above: Order Comment: Speci men Type: BLOOD SPECIMENOrdering Facility: [facility] Address: [address] [place], [place] [address] Performed By: #### 5 8410-2 ####[facility] LABCLIA [id number] [place] [address] [place] Hemoglobin (Bld) [Mass/Vol] 11.7 g/dL Low 13.0-17.0 [facility] Comment on above: Order Comment: Speci men Type: BLOOD SPECIMENOrdering Facility: [facility] Address: [address] Performed By: #### 5 8410-2 ####[facility] LABIA [id number] [address] MCH (RBC) [Entitic mass] 27.9 pg Normal 26.0-34.0 [facility] Comment on above: Order Comment: Speci men Type: BLOOD SPECIMENOrdering Facility: [facility] Address: [address] [place], [place] [phone] Performed By: #### 5 8410-2 ####[facility] LABIA [id number] [address] [place] MCHC (RBC) [Mass/Vol] 32.1 g/dL Normal 30.5-36.0 [facility] Comment on above: Order Comment: Speci men Type: BLOOD SPECIMENOrdering Facility: [facility] Address: [address] [place], [place] [phone] Performed By: #### 5 8410-2 ####[facility] LABIA [id number] [address] [place] MCV (RBC) [Entitic vol] 86.9 fL Normal 80.0-100.0 [facility] Comment on above: Order Comment: Speci men Type: BLOOD SPECIMENOrdering Facility: [facility] Address: [address] Performed By: #### 5 8410-2 ####[facility] LABCLIA [id number] [address] [place] Nucleated RBC (Bld) [#/Vol] 10*3/uL Normal <0.01 [facility] Comment on above: Order Comment: Speci men Type: BLOOD SPECIMENOrdering Facility: [facility] Address: [address] [place] [address] Performed By: #### 5 8410-2 ####[facility] LABIA [id number] [place] [address] [place] Platelet mean volume (Bld) [Entitic vol] Normal [facility] Comment on above: Order Comment: Speci men Type: BLOOD SPECIMENOrdering Facility: [facility] Address: [address] [place] [address] Result Comment: Unab le to Report. Performed By: #### 5 8410-2 ####[facility] [id number] [place] [address] [place] Platelets (Bld) [#/Vol] 103 10*3/uL Low 150-400 [facility] Comment on above: Order Comment: Speci men Type: BLOOD SPECIMENOrdering Facility: [facility] Address: [address] [place] [address] Result Comment: No c lot detected.Results checked and verified. Performed By: #### 5 8410-2 ####[facility] LABIA [id number] [place] [address] [place] RBC (Bld) [#/Vol] 4.19 10*6/uL Low 4.20-6.00 [facility] Comment on above: Order Comment: Speci men Type: BLOOD SPECIMENOrdering Facility: [facility] Address: [address] [place], [place] [address] Performed By: #### 5 8410-2 ####[facility] [id number] [place] [address] [place] WBC (Bld) [#/Vol] 9.45 10*3/uL Normal 3.70-11.00 [facility] Comment on above: Order Comment: Speci men Type: BLOOD SPECIMENOrdering Facility: [facility] Address: [address] [place] [address] Performed By: #### 5 8410-2 ####[facility] LABCLIA [id number] [place] [address] [place] ECG COMPLETEon 11-30-2022 ECG COMPLETE Normal [facility] Magnesium SerPl-mCncon 11-30 Magnesium [Mass/Vol] 2.1 mg/dL Normal 1.7-2.3 [facility] Comment on above: Order Comment: Speci men Type: BLOOD SPECIMENOrdering Facility: [facility] Address: [address] Performed By: #### 2 777-1, 71226-7, ####[facility] LABIA [id number] [address] [place] Phosphate SerPl-ncon 11-30 Phosphate [Mass/Vol] 2.8 mg/dL Normal 2.7-4.8 [facility] Comment on above: Order Comment: Speci men Type: BLOOD SPECIMENOrdering Facility: [facility] Address: [address] [place], [place] [address] Performed By: #### 2 777-1, 49321-0, ####[facility]IA [id number] [place] [address] [place] Ammonia Plas-sCncon 11-29-19 23 Ammonia (P) [Moles/Vol] 22 umol/L Normal 16-60 [facility] Comment on above: Order Comment: Speci men Type: BLOOD SPECIMENOrdering Facility: [facility] Address: [address] [id number] Result Comment: Resu lt may be falsely increased due to the fact that the sample was not received on ice. Performed By: #### 1 6362-6 ####[facility] LABCLIA [id number] [place] [address] [place] Basic metabolic 2000 panelon 11-29-2022 Anion gap [Moles/Vol] 7 mmol/L Low 9-18 [facility] Comment on above: Order Comment: Speci men Type: BLOOD SPECIMENOrdering Facility: [facility] Address: [address] [place] [address] Performed By: #### 1 9123-9, 2156-6, LIPNF, 99143-5, 3016-3, 2777-1, 302-7 ####[facility] LABCLIA [id number] [place] [address] [place] Calcium [Mass/Vol] 8.7 mg/dL Normal 8.5-10.2 [facility] Comment on above: Order Comment: Speci men Type: BLOOD SPECIMENOrdering Facility: [facility] Address: [address] [place] [address] Performed By: #### 1 9123-9, 6, LIPNF, 26657-1, 6-3, 277-1, 7 ####[facility] LABCLIA [id number] [place] [address] [place] Chloride [Moles/Vol] 111 mmol/L High 97-105 [facility] Comment on above: Order Comment: Speci men Type: BLOOD SPECIMENOrdering Facility: [facility] Address: [address] [place] [address] Performed By: #### 1 9123-9, 6, LIPNF, 94216-8, 3016-3, 2777-1, 302-7 ####[facility] LABCLIA [id number] [address] [place] [id number] [place] CO2 [Moles/Vol] 23 mmol/L Normal 22-30 [facility] Comment on above: Order Comment: Speci men Type: BLOOD SPECIMENOrdering Facility: [facility] Address: [address] [place] [address] Performed By: #### 1 9123-9, 6, LIPNF, 21046-0, 3016-3, 2777-1, 3024-7 ####[facility]IA [id number] [place] [address] [place] Creatinine [Mass/Vol] 1.08 mg/dL Normal 0.73-1.22 [facility] Comment on above: Order Comment: Speci men Type: BLOOD SPECIMENOrdering Facility: [facility] Address: [address] [place] [address] Performed By: #### 1 9123-9, 2156-6, LIPNF, 09932-3, 3016-3, 2777-1, 302-7 ####[facility] [id number] [place] [address] [place] ESTIMATED GLOMERULAR FILTRATION RATE 77 mL/min/1.73m??? Normal >=60 [facility] Comment on above: Order Comment: Chaz [facility] Type: BLOOD SPECIMENOrdering Facility: [facility] Address: [address] [place] [address] Result Comment: Karina mated Glomerular Filtration Rate [...] actual GFR. Performed By: #### 1 9123-9, 7-6, LIPNF, 33105-3, 6-3, 2777-1, 302-7 ####[facility] [id number] [place] [address] [place] Glucose [Mass/Vol] 94 mg/dL Normal 74-99 [facility] Comment on above: Order Comment: Speci men Type: BLOOD SPECIMENOrdering Facility: [facility] Address: [address] [place] [address] Result Comment: The [place] [employer] (ADA) provides guidance for cutoff [...] Standards of Medical Care in Diabetes 2016, [place] [employer]. Diabetes Care. 2016.39(Suppl 1). Performed By: #### 1 9123-9, 2156-6, LIPNF, 72295-5, 6-3, 2776-1, 7 ####[facility] LABCLIA [id number] [place] [address] [place] Potassium [Moles/Vol] 4.2 mmol/L Normal 3.7-5.1 [facility] Comment on above: Order Comment: Speci men Type: BLOOD SPECIMENOrdering Facility: [facility] Address: [address] [place] [address] Performed By: #### 1 9123-9, 6, LIPNF, 81408-4, 6-3, 2776-1, 7 ####[facility]IA [id number] [place] [address] [place] Sodium [Moles/Vol] 141 mmol/L Normal 136-144 [facility] Comment on above: Order Comment: Speci men Type: BLOOD SPECIMENOrdering Facility: [facility] Address: [address] [place] [address] Performed By: #### 1 9123-9, 6, LIPNF, 97933-2, 6-3, 2776-1, 3023-7 ####[facility] LABCLIA [id number] [place] [id number] [place] Urea nitrogen [Mass/Vol] 38 mg/dL High 9-24 [facility] Comment on above: Order Comment: Speci men Type: BLOOD SPECIMENOrdering Facility: [facility] Address: [address] [place] [address] Performed By: #### 1 9123-9, 2157-6, LIPNF, 14133-7, 3016-3, 2777-1, 3024-7 ####[facility] LABCLIA [id number] [place] [address] [place] CBC panel Auto (Bld)on 11-29 Erythrocyte distribution width (RBC) [Ratio] 17.2 % High 11.5-15.0 [facility] Comment on above: Order Comment: Speci men Type: BLOOD SPECIMENOrdering Facility: [facility] Address: [address] [place] [address] Performed By: #### 5 8410-2 ####[facility] LABCLIA [id number] [address] [place] Hematocrit (Bld) [Volume fraction] 33.5 % Low 39.0-51.0 [facility] Comment on above: Order Comment: Speci men Type: BLOOD SPECIMENOrdering Facility: [facility] Address: [address] [place] [address] Performed By: #### 5 8410-2 ####[facility] LABCLIA [id number] [place] [address] [place] Hemoglobin (Bld) [Mass/Vol] 11.1 g/dL Low 13.0-17.0 [facility] Comment on above: Order Comment: Speci men Type: BLOOD SPECIMENOrdering Facility: [facility] Address: [address] [place] [address] Performed By: #### 5 8410-2 ####[facility] LABCLIA [id number] [place] [address] [place] MCH (RBC) [Entitic mass] 27.8 pg Normal 26.0-34.0 [facility] Comment on above: Order Comment: Speci men Type: BLOOD SPECIMENOrdering Facility: [facility] Address: [address] [place], [place] [phone] Performed By: #### 5 8410-2 ####[facility] LAB[facility] [id number] [place] [address] [place] MCHC (RBC) [Mass/Vol] 33.1 g/dL Normal 30.5-36.0 [facility] Comment on above: Order Comment: Speci men Type: BLOOD SPECIMENOrdering Facility: [facility] Address: [address] [place], [place] [phone] Performed By: #### 5 8410-2 ####[facility] [id number] [place] [address] [place] MCV (RBC) [Entitic vol] 83.8 fL Normal 80.0-100.0 [facility] Comment on above: Order Comment: Speci men Type: BLOOD SPECIMENOrdering Facility: [facility] Address: [address] [place], [place] [address] Performed By: #### 5 8410-2 ####[facility] [id number] [place] [address] [place] Nucleated RBC (Bld) [#/Vol] 10*3/uL Normal <0.01 [facility] Comment on above: Order Comment: Speci men Type: BLOOD SPECIMENOrdering Facility: [facility] Address: [address] Performed By: #### 5 8410-2 ####[facility] [id number] [place] [address] [place] Platelet mean volume (Bld) [Entitic vol] 12.8 fL High 9.0-12.7 [facility] Comment on above: Order Comment: Speci men Type: BLOOD SPECIMENOrdering Facility: [facility] Address: [address] [place] [address] Performed By: #### 5 8410-2 ####[facility] [id number] [place] [address] [place] Platelets (Bld) [#/Vol] 101 10*3/uL Low 150-400 [facility] Comment on above: Order Comment: Speci men Type: BLOOD SPECIMENOrdering Facility: [facility] Address: [address] [place], [place] [phone] Result Comment: Resu lts checked and verified.No clot detected. Performed By: #### 5 8410-2 ####[facility] [id number] [place] [address] [place] RBC (Bld) [#/Vol] 4.00 10*6/uL Low 4.20-6.00 [facility] Comment on above: Order Comment: Speci men Type: BLOOD SPECIMENOrdering Facility: [facility] Address: [address] [place] [address] Performed By: #### 5 8410-2 ####[facility] [id number] [place] [address] [place] WBC (Bld) [#/Vol] 11.59 10*3/uL High 3.70-11.00 [facility] Comment on above: Order Comment: Speci men Type: BLOOD SPECIMENOrdering Facility: [facility] Address: [address] [place] [address] Performed By: #### 5 8410-2 ####[facility] [id number] [place] [address] [place] CK SerPl-cCncon 11-29-2022 CK [Catalytic activity/Vol] 21 U/L Low 51-298 [facility] Comment on above: Order Comment: Speci men Type: BLOOD SPECIMENOrdering Facility: [facility] Address: [address] [place] [address] Performed By: #### 1 9123-9, 2157-6, LIPNF, 82581-6, 3016-3, 2777-1, 3024-7 ####[facility] LABCL[facility] [id number] [place] [address] [place] BRAIN WO IVCONon 11-29-19 CT BRAIN WO IVCON Normal [facility] ECG COMPLETEon 11-29-2022 ECG COMPLETE Normal [facility] Gas and Carbon monoxide pane l (BldV)on 11-29-2022 BASE DEFICIT, VENOUS -2 mmol/L Normal -2-0 [facility] Comment on above: Order Comment: Speci men Type: VENOUS BLOOD SPECIMENOrdering Facility: [facility] Address: [address] [place] [address] Performed By: #### 2 4344-4 ####[facility] LABIA [id number] [address] [place] Body temperature 98.6 [degF] Normal [facility] Comment on above: Order Comment: Speci men Type: VENOUS BLOOD SPECIMENOrdering Facility: [facility] Address: [address] [place] [address] Performed By: #### 2 4344-4 ####[facility] LABIA [id number] [address] [place] Calcium.ionized (Bld) [Mass/Vol] 1.22 mmol/L Normal 1.08-1.30 [facility] Comment on above: Order Comment: Speci men Type: VENOUS BLOOD SPECIMENOrdering Facility: [facility] Address: [address] [place] [address] Performed By: #### 2 4344-4 ####[facility] LABIA [id number] [place] [address] [place] Calcium.ionized adjusted to pH 7.4 (BldA) [Moles/Vol] 1.21 mmol/L Normal 1.08-1.30 [facility] Comment on above: Order Comment: Speci men Type: VENOUS BLOOD SPECIMENOrdering Facility: [facility] Address: [address] [place] [address] Performed By: #### 2 4344-4 ####[facility] LABCLIA [id number] [place] [address] [place] Carboxyhemoglobin (BldV) [Mass fraction] 0.4 % Normal 0.0-2.0 [facility] Comment on above: Order Comment: Speci men Type: VENOUS BLOOD SPECIMENOrdering Facility: [facility] Address: [address] [place] [address] Result Comment: Carb oxyhemoglobin Reference Range for Smokers: 2.0-8.0% Performed By: #### 2 4344-4 ####[facility] LABCLIA [id number] [place] [address] [place] CO2 (BldV) [Partial pressure] 39 mm[Hg] Low 42-55 [facility] Comment on above: Order Comment: Speci men Type: VENOUS BLOOD SPECIMENOrdering Facility: [facility] Address: [address] [place], [place] [address] Performed By: #### 2 4344-4 ####[facility] LABCLIA [id number] [place] [address] [place] CO2 [Moles/Vol] 23 mmol/L Low 25-29 [facility] Comment on above: Order Comment: Speci men Type: VENOUS BLOOD SPECIMENOrdering Facility: [facility] Address: [address] [place], [place] [address] Performed By: #### 2 4344-4 ####[facility] LABCLIA [id number] [place] [address] [place] Glucose [Mass/Vol] 155 mg/dL High 60-105 [facility] Comment on above: Order Comment: Speci men Type: VENOUS BLOOD SPECIMENOrdering Facility: [facility] Address: [address] Performed By: #### 2 4344-4 ####[facility] LABCLIA [id number] [place] [address] [place] HCO3 (Bld) [Moles/Vol] 22 mmol/L Low 24-28 [facility] Comment on above: Order Comment: Speci men Type: VENOUS BLOOD SPECIMENOrdering Facility: [facility] Address: [address] Performed By: #### 2 4344-4 ####[facility] LABCLIA [id number] [place] [address] [place] Hematocrit (Bld) [Volume fraction] 36.7 % Low 39.0-51.0 [facility] Comment on above: Order Comment: Speci men Type: VENOUS BLOOD SPECIMENOrdering Facility: [facility] Address: [address] Performed By: #### 2 4344-4 ####[facility] LABCLIA [id number] [address] [place] Hemoglobin (Bld) [Mass/Vol] 11.9 g/dL Low 13.0-17.0 [facility] Comment on above: Order Comment: Speci men Type: VENOUS BLOOD SPECIMENOrdering Facility: [facility] Address: [address] Performed By: #### 2 4344-4 ####[facility] LABCLIA [id number] [place] [address] [place] Lactate [Moles/Vol] 1.9 mmol/L Normal 0.5-2.2 [facility] Comment on above: Order Comment: Speci men Type: VENOUS BLOOD SPECIMENOrdering Facility: [facility] Address: [address] Performed By: #### 2 4344-4 ####[facility] LABCLIA [id number] [place] [address] [place] LITERS 2 Liters/min Normal [facility] Comment on above: Order Comment: Speci men Type: VENOUS BLOOD SPECIMENOrdering Facility: [facility] Address: [address] [place] [address] Performed By: #### 2 4344-4 ####[facility] LABCLIA [id number] [place] [address] [place] Methemoglobin (Bld) [Mass fraction] 1.6 % High 0.0-1.5 [facility] Comment on above: Order Comment: Speci men Type: VENOUS BLOOD SPECIMENOrdering Facility: [facility] Address: [address] [place] [address] Performed By: #### 2 4344-4 ####[facility] LABIA [id number] [place] [address] [place] O2 THERAPY NC = Nasal Cannula Normal [facility] Comment on above: Order Comment: Speci men Type: VENOUS BLOOD SPECIMENOrdering Facility: [facility] Address: [address] Performed By: #### 2 4344-4 ####[facility] LABIA [id number] [place] [address] [place] Oxygen (BldV) [Partial pressure] 104 mm[Hg] High 35-45 [facility] Comment on above: Order Comment: Speci men Type: VENOUS BLOOD SPECIMENOrdering Facility: [facility] Address: [address] [place] [address] Performed By: #### 2 4344-4 ####[facility] LABCLIA [id number] [place] [address] [place] Oxygen saturation in Venous blood 97 % High 60-85 [facility] Comment on above: Order Comment: Speci men Type: VENOUS BLOOD SPECIMENOrdering Facility: [facility] Address: [address] Performed By: #### 2 4344-4 ####[facility] LABCLIA [id number] [place] [address] [place] Oxyhemoglobin (BldV) [Mass fraction] 95 % High 60-85 [facility] Comment on above: Order Comment: Speci men Type: VENOUS BLOOD SPECIMENOrdering Facility: [facility] Address: [address] Performed By: #### 2 4344-4 ####[facility] LABCLIA [id number] [place] [address] [place] pH (BldV) 7.37 [pH] Normal 7.32-7.42 [facility] Comment on above: Order Comment: Speci men Type: VENOUS BLOOD SPECIMENOrdering Facility: [facility] Address: [address] Performed By: #### 2 4344-4 ####[facility] LABIA [id number] [place] [address] [place] Potassium [Moles/Vol] 4.1 mmol/L Normal 3.5-5.0 [facility] Comment on above: Order Comment: Speci men Type: VENOUS BLOOD SPECIMENOrdering Facility: [facility] Address: [address] Performed By: #### 2 4344-4 ####[facility] LABCLIA [id number] [place] [address] [place] Sodium [Moles/Vol] 135 mmol/L Low 136-144 [facility] Comment on above: Order Comment: Speci men Type: VENOUS BLOOD SPECIMENOrdering Facility: [facility] Address: [address] Performed By: #### 2 4344-4 ####[facility] LABCLIA [id number] [address] OF [facility] LIPID PANEL, NONFASTINGon Cholesterol [Mass/Vol] 79 mg/dL Normal <200 [facility] Comment on above: Order Comment: Speci men Type: BLOOD SPECIMENOrdering Facility: [facility] Address: [address] [place] [address] Result Comment: <200 mg/dL, Desirable 200-239 mg/dL, Borderline high>239 mg/dL, High Performed By: #### 1 9123-9, 2156-6, LIPNF, 35779-2, 3016-3, 2777-1, 3024-7 ####[facility] LABCLIA [id number] [address] HDL CHOLESTEROL, NF 15 mg/dL Low >39 [facility] Comment on above: Order Comment: Speci men Type: BLOOD SPECIMENOrdering Facility: [facility] Address: [address] [place] [address] Result Comment: 40-5 9 mg/dL, Acceptable>59 mg/dL, High: Negative risk factor for coronary heart disease<40 mg/dL, Low: Positive risk factor for coronary heart disease Performed By: #### 1 9123-9, 6, LIPNF, 17521-4, 3016-3, 2777-1, 3024-7 ####[facility] LABCLIA [id number] [address] OF [facility] LDL CHOLESTEROL, NF 41 mg/dL Normal <100 [facility] Comment on above: Order Comment: Speci [facility] Type: BLOOD SPECIMENOrdering Facility: [facility] Address: [address] [place] [address] Result Comment: <100 mg/dL, Optimal 100-129 mg/dL, Near optimal/above optimal 130-159 mg/dL, Borderline high 160-189 mg/dL, High>189 mg/dL, Very highSecondary prevention optimal LDL Cholesterol levels are recommended to be < 70 mg/dL Performed By: #### 1 9123-9, 2157-6, LIPNF, 34596-8, 3016-3, 7-1, 7 ####[facility] LABCLIA [id number] [address] LDL/HDL RATIO, NF 2.73 mg/dL High <2.54 [facility] Comment on above: Order Comment: Speci men Type: BLOOD SPECIMENOrdering Facility: [facility] Address: [address] [place] [address] Result Comment: Refe rence:1. National Cholesterol Education Program ATP III Guideline At-A-Glance Quick Desk Reference: National Heart, Lung, and Blood [place]. National Institutes of Health. 2001: NIH Publication No. 01-3305.2. An International Atherosclerosis Society position paper: global recommendations for the management of dyslipidemia: executive summary, Atherosclerosis. 2014: 232(2):410-413. Performed By: #### 1 9123-9, 6, LIPNF, 70323-6, 3015-3, 2776-, 3024-04 ####[facility] LABCLIA [id number] [address] NON HDL CHOL, NF 64 mg/dL Normal <130 [facility] Comment on above: Order Comment: Speci men Type: BLOOD SPECIMENOrdering Facility: [facility] Address: [address] [place] [address] Result Comment: <130 mg/dL, Optimal 130-159 mg/dL, Near optimal/above optimal 160-189 mg/dL, Borderline high 190-219 mg/dL, High>219 mg/dL, Very highSecondary prevention optimal non HDL Cholesterol levels are recommended to be <100 mg/dL Performed By: #### 1 9123-9, 2156-6, LIPNF, 29933-0, 3016-3, 2777-1, 7 ####[facility] LABCLIA [id number] [address] [place] T CHOL/HDL RATIO NF 5.27 mg/dL High <5.10 [facility] Comment on above: Order Comment: Speci men Type: BLOOD SPECIMENOrdering Facility: [facility] Address: [address] [place] [address] Performed By: #### 1 9123-9, 7-6, LIPNF, 94924-2, 3016-3, 2777-1, 3024-7 ####[facility] LABCLIA [id number] [place] [address] [place] TRIGLYCERIDES, NF 117 mg/dL Normal <150 [facility] Comment on above: Order Comment: Speci men Type: BLOOD SPECIMENOrdering Facility: [facility] Address: [address] [place] [address] Result Comment: <150 mg/dL, Normal 150-199 mg/dL, Borderline high 200-499 mg/dL, High>499 mg/dL, Very high Performed By: #### 1 9123-9, 6, LIPNF, 34895-0, 3016-3, 2777-1, 3024-7 ####[facility] LABCLIA [id number] [place] [address] [place] VLDL CHOLESTEROL, NF 23 mg/dL Normal <30 [facility] Comment on above: Order Comment: Speci men Type: BLOOD SPECIMENOrdering Facility: [facility] Address: [address] [place] [address] Performed By: #### 1 9123-9, 6, LIPNF, 17799-2, 3016-3, 2777-1, 3024-7 ####[facility] LABCLIA [id number] [place] [address] [place] Magnesium SerPl-mCncon 11-29 Magnesium [Mass/Vol] 2.3 mg/dL Normal 1.7-2.3 [facility] Comment on above: Order Comment: Speci men Type: BLOOD SPECIMENOrdering Facility: [facility] Address: [address] [place] [address] Performed By: #### 1 9123-9, 2157-03, LIPNF, 58830-7, 3015-3, 2776-1, 7 ####[facility] LABCLIA [id number] [place] [address] [place] Phosphate SerPl-mCncon 11-29 Phosphate [Mass/Vol] 2.6 mg/dL Low 2.7-4.8 [facility] Comment on above: Order Comment: Speci men Type: BLOOD SPECIMENOrdering Facility: [facility] Address: [address] [place] [address] Performed By: #### 1 91-9, 2157-03, LIPNF, 31537-1, 3015-3, 2776-, 7 ####[facility] LABCLIA [id number] [place] [address] [place] T4 Free SerPl-mCncon 023 Free T4 [Mass/Vol] 0.6 ng/dL Low 0.9-1.7 [facility] Comment on above: Order Comment: Speci men Type: BLOOD SPECIMENOrdering Facility: [facility] Address: [address] [place] [address] Performed By: #### 1 9123-9, 2157-03, LIPNF, 91605-5, 3015-3, 2776-, 7 ####[facility] LABCLIA [id number] [place] [address] [place] TSH SerPl-aCncon 11-29-2022 TSH Qn 0.221 m[IU]/L Low 0.270-4.20 0 [facility] Comment on above: Order Comment: Speci men Type: BLOOD SPECIMENOrdering Facility: [facility] Address: [address] [place] [address] Performed By: #### 1 91-9, 2157-6, LIPNF, 79361-9, 3016-3, 2777-1, 3024-7 ####[facility] LABIA [id number] [place] [id number] [place] Basic metabolic 2000 panelon 11-28-2022 Anion gap [Moles/Vol] 10 mmol/L Normal 9-18 [facility] Comment on above: Order Comment: Speci men Type: BLOOD SPECIMENOrdering Facility: [facility] Address: [address] Performed By: #### 2 4321-2, 2776-1, ####[facility] LABIA [id number] [place] [address] [place] Calcium [Mass/Vol] 8.6 mg/dL Normal 8.5-10.2 [facility] Comment on above: Order Comment: Speci men Type: BLOOD SPECIMENOrdering Facility: [facility] Address: [address] Performed By: #### 2 4321-2, 2776-, ####[facility] LABIA [id number] [place] [address] [place] Chloride [Moles/Vol] 109 mmol/L High 97-105 [facility] Comment on above: Order Comment: Speci men Type: BLOOD SPECIMENOrdering Facility: [facility] Address: [address] Performed By: #### 2 4321-2, 2776-1, ####[facility] LABIA [id number] [place] [address] [place] CO2 [Moles/Vol] 21 mmol/L Low 22-30 [facility] Comment on above: Order Comment: Speci men Type: BLOOD SPECIMENOrdering Facility: [facility] Address: [address] Performed By: #### 2 4321-2, 7-, ####[facility] LABIA [id number] [place] [address] [place] Creatinine [Mass/Vol] 1.31 mg/dL High 0.73-1.22 [facility] Comment on above: Order Comment: Chaz trevizo Type: BLOOD SPECIMENOrdering Facility: [facility] Address: [address] [place] [address] Performed By: #### 2 4321-2, 277-, ####[facility] LABIA [id number] [place] [address] [place] ESTIMATED GLOMERULAR FILTRATION RATE 61 mL/min/1.73m??? Normal >=60 [facility] Comment on above: Order Comment: Chaz trevizo Type: BLOOD SPECIMENOrdering Facility: [facility] Address: [address] [place] [address] Result Comment: Karina mated Glomerular Filtration Rate [...] actual GFR. Performed By: #### 2 4321-2, 2777, ####[facility] LABIA [id number] [place] [address] [place] Glucose [Mass/Vol] 113 mg/dL High 74-99 [facility] Comment on above: Order Comment: Chaz trevizo Type: BLOOD SPECIMENOrdering Facility: [facility] Address: [address] [place], [place] [address] Result Comment: The [place] [employer] (ADA) provides guidance for cutoff [...] Standards of Medical Care in Diabetes 2016, [place] [employer]. Diabetes Care. 2016.39(Suppl 1). Performed By: #### 2 4321-2, 2776-10, ####[facility] LABCLIA [id number] [place] [address] [place] Potassium [Moles/Vol] 4.9 mmol/L Normal 3.7-5.1 [facility] Comment on above: Order Comment: Speci men Type: BLOOD SPECIMENOrdering Facility: [facility] Address: [address] [place] [address] Performed By: #### 2 432-2, 2776-10, ####[facility] LABIA [id number] [place] [address] [place] Sodium [Moles/Vol] 140 mmol/L Normal 136-144 [facility] Comment on above: Order Comment: Speci men Type: BLOOD SPECIMENOrdering Facility: [facility] Address: [address] [place] [address] Performed By: #### 2 4321-2, 2776-10, ####[facility] LABCLIA [id number] [place] [address] [place] Urea nitrogen [Mass/Vol] 38 mg/dL High 9-24 [facility] Comment on above: Order Comment: Speci men Type: BLOOD SPECIMENOrdering Facility: [facility] Address: [address] Performed By: #### 2 4321-2, 2776-10, ####[facility] LABCLIA [id number] [address] [place] CBC panel Auto (Bld)on 11-28 Erythrocyte distribution width (RBC) [Ratio] 17.4 % High 11.5-15.0 [facility] Comment on above: Order Comment: Speci men Type: BLOOD SPECIMENOrdering Facility: [facility] Address: [address] [place] [address] Performed By: #### 5 8410-2 ####[facility] LABIA [id number] [address] [place] Hematocrit (Bld) [Volume fraction] 33.3 % Low 39.0-51.0 [facility] Comment on above: Order Comment: Speci men Type: BLOOD SPECIMENOrdering Facility: [facility] Address: [address] [place] [address] Performed By: #### 5 8410-2 ####[facility] LABIA [id number] [address] [place] Hemoglobin (Bld) [Mass/Vol] 10.8 g/dL Low 13.0-17.0 [facility] Comment on above: Order Comment: Speci men Type: BLOOD SPECIMENOrdering Facility: [facility] Address: [address] [place] [address] Performed By: #### 5 8410-2 ####[facility] LABIA [id number] [place] [address] [place] MCH (RBC) [Entitic mass] 28.1 pg Normal 26.0-34.0 [facility] Comment on above: Order Comment: Speci men Type: BLOOD SPECIMENOrdering Facility: [facility] Address: [address] [place], [place] [address] Performed By: #### 5 8410-2 ####[facility] LABIA [id number] [address] [place] MCHC (RBC) [Mass/Vol] 32.4 g/dL Normal 30.5-36.0 [facility] Comment on above: Order Comment: Speci men Type: BLOOD SPECIMENOrdering Facility: [facility] Address: [address] [place], [place] [address] Performed By: #### 5 8410-2 ####[facility] LABIA [id number] [address] [place] MCV (RBC) [Entitic vol] 86.5 fL Normal 80.0-100.0 [facility] Comment on above: Order Comment: Speci men Type: BLOOD SPECIMENOrdering Facility: [facility] Address: [address] [place], [place] [address] Performed By: #### 5 8410-2 ####[facility] LABIA [id number] [place] [address] [place] Nucleated RBC (Bld) [#/Vol] 10*3/uL Normal <0.01 [facility] Comment on above: Order Comment: Speci men Type: BLOOD SPECIMENOrdering Facility: [facility] Address: [address] [place], [place] [address] Performed By: #### 5 8410-2 ####[facility] LABIA [id number] [place] [address] [place] Platelet mean volume (Bld) [Entitic vol] 13.2 fL High 9.0-12.7 [facility] Comment on above: Order Comment: Speci men Type: BLOOD SPECIMENOrdering Facility: [facility] Address: [address] [place], [place] [address] Performed By: #### 5 8410-2 ####[facility] LABIA [id number] [place] [address] [place] Platelets (Bld) [#/Vol] 76 10*3/uL Low 150-400 [facility] Comment on above: Order Comment: Speci men Type: BLOOD SPECIMENOrdering Facility: [facility] Address: [address] Result Comment: Resu lts checked and verified.No clot detected. Performed By: #### 5 8410-2 ####[facility] LABCLIA [id number] [place] [address] [place] RBC (Bld) [#/Vol] 3.85 10*6/uL Low 4.20-6.00 [facility] Comment on above: Order Comment: Speci men Type: BLOOD SPECIMENOrdering Facility: [facility] Address: [address] [place] [address] Performed By: #### 5 8410-2 ####[facility] LABIA [id number] [place] [address] [place] WBC (Bld) [#/Vol] 10.98 10*3/uL Normal 3.70-11.00 [facility] Comment on above: Order Comment: Speci men Type: BLOOD SPECIMENOrdering Facility: [facility] Address: [address] [place] [address] Performed By: #### 5 8410-2 ####[facility] LABCLIA [id number] [place] [address] [place] CONSULTon 11-28-2022 CONSULT Normal [facility] Magnesium SerPl-mCncon 11-28 Magnesium [Mass/Vol] 2.1 mg/dL Normal 1.7-2.3 [facility] Comment on above: Order Comment: Speci men Type: BLOOD SPECIMENOrdering Facility: [facility] Address: [address] [place] [address] Performed By: #### 2 4321-2, 2777-1, 34133-4 ####[facility] LABCLIA [id number] [place] [address] [place] Phosphate SerPl-mCncon 11-28 Phosphate [Mass/Vol] 3.4 mg/dL Normal 2.7-4.8 [facility] Comment on above: Order Comment: Speci men Type: BLOOD SPECIMENOrdering Facility: [facility] Address: [address] [place] [address] Performed By: #### 2 4321-2, 2777-1, 94616-8 ####[facility] LABCLIA [id number] [facility] [place] [id number] [place] THERAPY NTon 11-28-2022 THERAPY NT Normal [facility] Basic metabolic 2000 panelon 11-27-2022 Anion gap [Moles/Vol] 14 mmol/L Normal 9-18 [facility] Comment on above: Order Comment: Speci men Type: BLOOD SPECIMENOrdering Facility: [facility] Address: [address] [place] [address] Performed By: #### 1 9123-9, 71551-9, 277- ####[facility] LABCLIA [id number] [place] [address] [place] Anion gap [Moles/Vol] 13 mmol/L Normal 9-18 [facility] Comment on above: Order Comment: Speci men Type: BLOOD SPECIMENOrdering Facility: [facility] Address: [address] [place] [address] Performed By: #### 2 4321-2 ####[facility] LABCLIA [id number] [place] [address] [place] Calcium [Mass/Vol] 8.7 mg/dL Normal 8.5-10.2 [facility] Comment on above: Order Comment: Speci men Type: BLOOD SPECIMENOrdering Facility: [facility] Address: [address] [place], [place] [phone] Performed By: #### 1 9123-9, 09130-0, 2777-1 ####[facility] LABCLIA [id number] [facility] [place] [address] [place] Calcium [Mass/Vol] 8.3 mg/dL Low 8.5-10.2 [facility] Comment on above: Order Comment: Speci men Type: BLOOD SPECIMENOrdering Facility: [facility] Address: [address] [place] [address] Performed By: #### 2 4321-2 ####[facility] LABCLIA [id number] [place] [address] [place] Chloride [Moles/Vol] 109 mmol/L High 97-105 [facility] Comment on above: Order Comment: Speci men Type: BLOOD SPECIMENOrdering Facility: [facility] Address: [address] [place] [address] Performed By: #### 1 9123-9, 61903-0, 277-1 ####[facility] LABCLIA [id number] [place] [address] [place] Chloride [Moles/Vol] 109 mmol/L High 97-105 [facility] [facility] Comment on above: Order Comment: Speci men Type: BLOOD SPECIMENOrdering Facility: [facility] Address: [address] [place] [address] Performed By: #### 2 4321-2 ####[facility] LABCLIA [id number] [place] [address] [place] CO2 [Moles/Vol] 17 mmol/L Low 22-30 [facility] Comment on above: Order Comment: Speci men Type: BLOOD SPECIMENOrdering Facility: [facility] Address: [address] [place], [place] [address] Performed By: #### 1 9123-9, 71333-8, 277-1 ####[facility] LABCLIA [id number] [place] [address] [place] CO2 [Moles/Vol] 18 mmol/L Low 22-30 [facility] Comment on above: Order Comment: Speci men Type: BLOOD SPECIMENOrdering Facility: [facility] Address: [address] [address] Performed By: #### 2 4321-2 ####[facility] LABIA [id number] [address] [place] Creatinine [Mass/Vol] 1.75 mg/dL High 0.73-1.22 [facility] Comment on above: Order Comment: Speci men Type: BLOOD SPECIMENOrdering Facility: [facility] Address: [address] [address] Performed By: #### 1 9123-9, 90686-3, 277- ####[facility] LABIA [id number] [address] STATES OF [facility] Creatinine [Mass/Vol] 1.52 mg/dL High 0.73-1.22 [facility] Comment on above: Order Comment: Speci men Type: BLOOD SPECIMENOrdering Facility: [facility] Address: [address] [place] [address] Performed By: #### 2 4321-2 ####[facility] LABIA [id number] [place] [address] [place] ESTIMATED GLOMERULAR FILTRATION RATE 43 mL/min/1.73m??? Low >=60 [facility] Comment on above: Order Comment: Speci men Type: BLOOD SPECIMENOrdering Facility: [facility] Address: [address] [place] [address] Result Comment: Karina mated Glomerular Filtration Rate [...] actual GFR. Performed By: #### 1 9123-9, 54645-3, 277- ####[facility] LABIA [id number] [place] ESTIMATED GLOMERULAR FILTRATION RATE 51 mL/min/1.73m??? Low >=60 [facility] Comment on above: Order Comment: Chaz trevizo Type: BLOOD SPECIMENOrdering Facility: [facility] Address: [address] [place] [address] Result Comment: Karina mated Glomerular Filtration Rate [...] actual GFR. Performed By: #### 2 4321-2 ####[facility] LABCLIA [id number] [place] [address] [place] Glucose [Mass/Vol] 112 mg/dL High 74-99 [facility] Comment on above: Order Comment: Chaz trevizo Type: BLOOD SPECIMENOrdering Facility: [facility] Address: [address] [place] [address] Result Comment: The [place] [employer] (ADA) provides guidance for cutoff [...] Standards of Medical Care in Diabetes 2016, [place] [employer]. Diabetes Care. 2016.39(Suppl 1). Performed By: #### 1 9123-9, 72076-4, 2777-1 ####[facility] LABCLIA [id number] [place] [address] [place] Glucose [Mass/Vol] 154 mg/dL High 74-99 [facility] Comment on above: Order Comment: Speci men Type: BLOOD SPECIMENOrdering Facility: [facility] Address: [address] [place] [address] Result Comment: The [place] [employer] (ADA) provides guidance for cutoff [...] Standards of Medical Care in Diabetes 2016, [place] [employer]. Diabetes Care. 2016.39(Suppl 1). Performed By: #### 2 4321-2 ####[facility] LABCLIA [id number] [place] [address] [place] Potassium [Moles/Vol] 5.4 mmol/L High 3.7-5.1 [facility] Comment on above: Order Comment: Chaz men Type: BLOOD SPECIMENOrdering Facility: [facility] Address: [address] [place] [address] Performed By: #### 1 9123-9, 32737-8, 2777-1 ####[facility] LABCLIA [id number] [place] [address] [place] Potassium [Moles/Vol] 4.6 mmol/L Normal 3.7-5.1 [facility] Comment on above: Order Comment: Speci men Type: BLOOD SPECIMENOrdering Facility: [facility] Address: [address] [place] [address] Performed By: #### 2 4321-2 ####[facility] LABCLIA [id number] [place] [address] [place] Sodium [Moles/Vol] 140 mmol/L Normal 136-144 [facility] Comment on above: Order Comment: Speci men Type: BLOOD SPECIMENOrdering Facility: [facility] Address: [address] Performed By: #### 1 9123-9, 92010-2, 2777- ####[facility] LABCLIA [id number] [place] [address] [place] Sodium [Moles/Vol] 140 mmol/L Normal 136-144 [facility] Comment on above: Order Comment: Speci men Type: BLOOD SPECIMENOrdering Facility: [facility] Address: [address] [place] [address] Performed By: #### 2 4321-2 ####[facility] LABCLIA [id number] [place] [address] [place] Urea nitrogen [Mass/Vol] 40 mg/dL High 9-24 [facility] Comment on above: Order Comment: Speci men Type: BLOOD SPECIMENOrdering Facility: [facility] Address: [address] [address] Performed By: #### 1 9123-9, 22501-7, 2777- ####[facility] LABCLIA [id number] [place] [address] [place] Urea nitrogen [Mass/Vol] 43 mg/dL High 9-24 [facility] Comment on above: Order Comment: Speci men Type: BLOOD SPECIMENOrdering Facility: [facility] Address: [address] Performed By: #### 2 4321-2 ####[facility] LABCLIA [id number] [place] [id number] [place] CASE MANAGEMon 11-27-2022 CASE MANAGEM Normal [facility] CBC panel Auto (Bld)on 11-27 Erythrocyte distribution width (RBC) [Ratio] 17.2 % High 11.5-15.0 [facility] Comment on above: Order Comment: Speci men Type: BLOOD SPECIMENOrdering Facility: [facility] Address: [address] [address] Performed By: #### 5 8410-2 ####[facility] LABIA [id number] [address] [place] Hematocrit (Bld) [Volume fraction] 36.2 % Low 39.0-51.0 [facility] Comment on above: Order Comment: Speci men Type: BLOOD SPECIMENOrdering Facility: [facility] Address: [address] [address] Performed By: #### 5 8410-2 ####[facility] LABIA [id number] [address] [place] Hemoglobin (Bld) [Mass/Vol] 12.0 g/dL Low 13.0-17.0 [facility] Comment on above: Order Comment: Speci men Type: BLOOD SPECIMENOrdering Facility: [facility] Address: [address] Performed By: #### 5 8410-2 ####[facility] LABIA [id number] [address] [place] MCH (RBC) [Entitic mass] 28.4 pg Normal 26.0-34.0 [facility] Comment on above: Order Comment: Speci men Type: BLOOD SPECIMENOrdering Facility: [facility] Address: [address] Performed By: #### 5 8410-2 ####[facility] LABIA [id number] [place] [address] [place] MCHC (RBC) [Mass/Vol] 33.1 g/dL Normal 30.5-36.0 [facility] Comment on above: Order Comment: Speci men Type: BLOOD SPECIMENOrdering Facility: [facility] Address: [address] Performed By: #### 5 8410-2 ####[facility] LABIA [id number] [place] [address] [place] MCV (RBC) [Entitic vol] 85.8 fL Normal 80.0-100.0 [facility] Comment on above: Order Comment: Speci men Type: BLOOD SPECIMENOrdering Facility: [facility] Address: [address] [place], [place] [address] Performed By: #### 5 8410-2 ####[facility] [id number] [place] [address] [place] Nucleated RBC (Bld) [#/Vol] 10*3/uL Normal <0.01 [facility] Comment on above: Order Comment: Speci men Type: BLOOD SPECIMENOrdering Facility: [facility] Address: [address] [place] [address] Performed By: #### 5 8410-2 ####[facility] [id number] [place] [address] [place] Platelet mean volume (Bld) [Entitic vol] 13.7 fL High 9.0-12.7 [facility] Comment on above: Order Comment: Speci men Type: BLOOD SPECIMENOrdering Facility: [facility] Address: [address] [place], [place] [address] Performed By: #### 5 8410-2 ####[facility] [id number] [place] [address] [place] Platelets (Bld) [#/Vol] 92 10*3/uL Low 150-400 [facility] Comment on above: Order Comment: Speci men Type: BLOOD SPECIMENOrdering Facility: [facility] Address: [address] [place], [place] [address] Result Comment: Resu lts checked and verified.No clot detected. Performed By: #### 5 8410-2 ####[facility] LABIA [id number] [place] [address] [place] RBC (Bld) [#/Vol] 4.22 10*6/uL Normal 4.20-6.00 [facility] Comment on above: Order Comment: Speci men Type: BLOOD SPECIMENOrdering Facility: [facility] Address: [address] [place] [address] Performed By: #### 5 8410-2 ####[facility] LABCLIA [id number] [place] [address] [place] WBC (Bld) [#/Vol] 14.13 10*3/uL High 3.70-11.00 [facility] Comment on above: Order Comment: Speci men Type: BLOOD SPECIMENOrdering Facility: [facility] Address: [address] [place] [address] Performed By: #### 5 8410-2 ####[facility] LABCLIA [id number] [place] [address] [place] CONSULT PROGon 11-27-2022 CONSULT PROG Normal [facility] Gas and Carbon monoxide pane l (BldV)on 11-27-2022 BASE DEFICIT, VENOUS -5 mmol/L Low -2-0 [facility] Comment on above: Order Comment: Speci men Type: VENOUS BLOOD SPECIMENOrdering Facility: [facility] Address: [address] [place] [address] Performed By: #### 2 4344-4 ####[facility] LABCLIA [id number] [place] [address] [place] BASE DEFICIT, VENOUS -5 mmol/L Low -2-0 [facility] Comment on above: Order Comment: Speci men Type: VENOUS BLOOD SPECIMENOrdering Facility: [facility] Address: [address] [place] [address] Performed By: #### 2 4344-4 ####[facility] LABCLIA [id number] [address] [place] Body temperature 98.6 [degF] Normal [facility] Comment on above: Order Comment: Speci men Type: VENOUS BLOOD SPECIMENOrdering Facility: [facility] Address: [address] [address] Performed By: #### 2 4344-4 ####[facility] LABCLIA [id number] [address] [place] Body temperature 98.6 [degF] Normal [facility] Comment on above: Order Comment: Speci men Type: VENOUS BLOOD SPECIMENOrdering Facility: [facility] Address: [address] [place], [place] [address] Performed By: #### 2 4344-4 ####[facility] LABIA [id number] [place] [address] [place] [facility] [place] Calcium.ionized (Bld) [Mass/Vol] 1.21 mmol/L Normal 1.08-1.30 [facility] Comment on above: Order Comment: Speci men Type: VENOUS BLOOD SPECIMENOrdering Facility: [facility] Address: [address] [place], [place] [address] Performed By: #### 2 4344-4 ####[facility] LABIA [id number] [place] [address] [place] Calcium.ionized (Bld) [Mass/Vol] 1.20 mmol/L Normal 1.08-1.30 [facility] Comment on above: Order Comment: Speci men Type: VENOUS BLOOD SPECIMENOrdering Facility: [facility] Address: [address] [place], [place] [address] Performed By: #### 2 4344-4 ####[facility] LABCLIA [id number] [place] [address] [place] Calcium.ionized adjusted to pH 7.4 (BldA) [Moles/Vol] 1.18 mmol/L Normal 1.08-1.30 [facility] Comment on above: Order Comment: Speci men Type: VENOUS BLOOD SPECIMENOrdering Facility: [facility] Address: [address] [place] [address] Performed By: #### 2 4344-4 ####[facility] LABCLIA [id number] [place] [address] [place] Calcium.ionized adjusted to pH 7.4 (BldA) [Moles/Vol] 1.17 mmol/L Normal 1.08-1.30 [facility] Comment on above: Order Comment: Speci men Type: VENOUS BLOOD SPECIMENOrdering Facility: [facility] Address: [address] [place] [address] Performed By: #### 2 4344-4 ####[facility] LABIA [id number] [place] [address] [place] Carboxyhemoglobin (BldV) [Mass fraction] 0.8 % Normal 0.0-2.0 [facility] Comment on above: Order Comment: Speci men Type: VENOUS BLOOD SPECIMENOrdering Facility: [facility] Address: [address] [place] [address] Result Comment: Carb oxyhemoglobin Reference Range for Smokers: 2.0-8.0% Performed By: #### 2 4344-4 ####[facility] LABIA [id number] [place] [address] [place] Carboxyhemoglobin (BldV) [Mass fraction] 0.1 % Normal 0.0-2.0 [facility] Comment on above: Order Comment: Speci men Type: VENOUS BLOOD SPECIMENOrdering Facility: [facility] Address: [address] [place] [address] Result Comment: Carb oxyhemoglobin Reference Range for Smokers: 2.0-8.0% Performed By: #### 2 4344-4 ####[facility] LABCLIA [id number] [place] [address] [place] CO2 (BldV) [Partial pressure] 36 mm[Hg] Low 42-55 [facility] Comment on above: Order Comment: Speci men Type: VENOUS BLOOD SPECIMENOrdering Facility: [facility] Address: [address] [place] [address] Performed By: #### 2 4344-4 ####[facility] LABCLIA [id number] [address] [address] [place] CO2 (BldV) [Partial pressure] 35 mm[Hg] Low 42-55 [facility] Comment on above: Order Comment: Speci men Type: VENOUS BLOOD SPECIMENOrdering Facility: [facility] Address: [address] Performed By: #### 2 4344-4 ####[facility] LABCLIA [id number] [place] [address] [place] CO2 [Moles/Vol] 21 mmol/L Low 25-29 [facility] Comment on above: Order Comment: Speci men Type: VENOUS BLOOD SPECIMENOrdering Facility: [facility] Address: [address] Performed By: #### 2 4344-4 ####[facility] LABCLIA [id number] [place] [address] [place] CO2 [Moles/Vol] 20 mmol/L Low 25-29 [facility] Comment on above: Order Comment: Speci men Type: VENOUS BLOOD SPECIMENOrdering Facility: [facility] Address: [address] [id number] Performed By: #### 2 4344-4 ####[facility] LABCLIA [id number] [place] [address] [place] FIO2 35 % Normal [facility] Comment on above: Order Comment: Speci men Type: VENOUS BLOOD SPECIMENOrdering Facility: [facility] Address: [address] [id number] Performed By: #### 2 4344-4 ####[facility] LABCLIA [id number] [place] [address] [place] Glucose [Mass/Vol] 129 mg/dL High 60-105 [facility] Comment on above: Order Comment: Speci men Type: VENOUS BLOOD SPECIMENOrdering Facility: [facility] Address: [address] [address] Performed By: #### 2 4344-4 ####[facility] LABCLIA [id number] [place] [address] [place] Glucose [Mass/Vol] 159 mg/dL High 60-105 [facility] Comment on above: Order Comment: Speci men Type: VENOUS BLOOD SPECIMENOrdering Facility: [facility] Address: [address] [address] Performed By: #### 2 4344-4 ####[facility] LABCLIA [id number] [place] [address] [place] HCO3 (Bld) [Moles/Vol] 20 mmol/L Low 24-28 [facility] Comment on above: Order Comment: Speci men Type: VENOUS BLOOD SPECIMENOrdering Facility: [facility] Address: [address] Performed By: #### 2 4344-4 ####[facility] LABCLIA [id number] [place] [address] [place] HCO3 (Bld) [Moles/Vol] 19 mmol/L Low 24-28 [facility] Comment on above: Order Comment: Speci men Type: VENOUS BLOOD SPECIMENOrdering Facility: [facility] Address: [address] Performed By: #### 2 4344-4 ####[facility] LABCLIA [id number] [place] [address] [place] Hematocrit (Bld) [Volume fraction] 37.1 % Low 39.0-51.0 [facility] Comment on above: Order Comment: Speci men Type: VENOUS BLOOD SPECIMENOrdering Facility: [facility] Address: [address] [address] Performed By: #### 2 4344-4 ####[facility] LABIA [id number] [place] [address] [place] Hematocrit (Bld) [Volume fraction] 36.7 % Low 39.0-51.0 [facility] Comment on above: Order Comment: Speci men Type: VENOUS BLOOD SPECIMENOrdering Facility: [facility] Address: [address] [address] Performed By: #### 2 4344-4 ####[facility] LABIA [id number] [place] [address] [place] Hemoglobin (Bld) [Mass/Vol] 12.0 g/dL Low 13.0-17.0 [facility] Comment on above: Order Comment: Speci men Type: VENOUS BLOOD SPECIMENOrdering Facility: [facility] Address: [address] Performed By: #### 2 4344-4 ####[facility] LABIA [id number] [place] [address] [place] Hemoglobin (Bld) [Mass/Vol] 11.9 g/dL Low 13.0-17.0 [facility] Comment on above: Order Comment: Speci men Type: VENOUS BLOOD SPECIMENOrdering Facility: [facility] Address: [address] Performed By: #### 2 4344-4 ####[facility] LABIA [id number] [place] [address] [place] Lactate [Moles/Vol] 1.8 mmol/L Normal 0.5-2.2 [facility] Comment on above: Order Comment: Speci men Type: VENOUS BLOOD SPECIMENOrdering Facility: [facility] Address: [address] [place] [address] Performed By: #### 2 4344-4 ####[facility] LABCLIA [id number] [place] [address] [place] Lactate [Moles/Vol] 2.0 mmol/L Normal 0.5-2.2 [facility] Comment on above: Order Comment: Speci men Type: VENOUS BLOOD SPECIMENOrdering Facility: [facility] Address: [address] Performed By: #### 2 4344-4 ####[facility] LABCLIA [id number] [place] [address] [place] LITERS 5 Liters/min Normal [facility] Comment on above: Order Comment: Speci men Type: VENOUS BLOOD SPECIMENOrdering Facility: [facility] Address: [address] Performed By: #### 2 4344-4 ####[facility] LABCLIA [id number] [place] [address] [place] Methemoglobin (Bld) [Mass fraction] 1.5 % Normal 0.0-1.5 [facility] Comment on above: Order Comment: Speci men Type: VENOUS BLOOD SPECIMENOrdering Facility: [facility] Address: [address] [place] [address] Performed By: #### 2 4344-4 ####[facility] LABCLIA [id number] [place] [address] [place] Methemoglobin (Bld) [Mass fraction] 1.7 % High 0.0-1.5 [facility] Comment on above: Order Comment: Speci men Type: VENOUS BLOOD SPECIMENOrdering Facility: [facility] Address: [address] Performed By: #### 2 4344-4 ####[facility] LABCLIA [id number] [address] [place] O2 THERAPY Hi-Flow Nasal Cannula-Heated Normal [facility] Comment on above: Order Comment: Speci men Type: VENOUS BLOOD SPECIMENOrdering Facility: [facility] Address: [address] [address] Performed By: #### 2 4344-4 ####[facility] LABCLIA [id number] [address] [place] O2 THERAPY NC = Nasal Cannula Normal [facility] Comment on above: Order Comment: Speci men Type: VENOUS BLOOD SPECIMENOrdering Facility: [facility] Address: [address] [address] Performed By: #### 2 4344-4 ####[facility] LABCLIA [id number] [place] [address] [place] Oxygen (BldV) [Partial pressure] 62 mm[Hg] High 35-45 [facility] Comment on above: Order Comment: Speci men Type: VENOUS BLOOD SPECIMENOrdering Facility: [facility] Address: [address] Performed By: #### 2 4344-4 ####[facility] LABCLIA [id number] [address] [place] Oxygen (BldV) [Partial pressure] 71 mm[Hg] High 35-45 [facility] Comment on above: Order Comment: Speci men Type: VENOUS BLOOD SPECIMENOrdering Facility: [facility] Address: [address] [place] [address] Performed By: #### 2 4344-4 ####[facility] LABCLIA [id number] [place] [address] [place] Oxygen saturation in Venous blood 90 % High 60-85 [facility] Comment on above: Order Comment: Speci men Type: VENOUS BLOOD SPECIMENOrdering Facility: [facility] Address: [address] Performed By: #### 2 4344-4 ####[facility] LABCLIA [id number] [place] [address] [place] Oxygen saturation in Venous blood 94 % High 60-85 [facility] Comment on above: Order Comment: Speci men Type: VENOUS BLOOD SPECIMENOrdering Facility: [facility] Address: [address] [place] [address] Performed By: #### 2 4344-4 ####[facility] LABCLIA [id number] [place] [address] [place] Oxyhemoglobin (BldV) [Mass fraction] 88 % High 60-85 [facility] Comment on above: Order Comment: Speci men Type: VENOUS BLOOD SPECIMENOrdering Facility: [facility] Address: [address] [place], [place] [address] Performed By: #### 2 4344-4 ####[facility] LABCLIA [id number] [place] [address] [place] Oxyhemoglobin (BldV) [Mass fraction] 92 % High 60-85 [facility] Comment on above: Order Comment: Speci men Type: VENOUS BLOOD SPECIMENOrdering Facility: [facility] Address: [address] [place] [address] Performed By: #### 2 4344-4 ####[facility] LABCLIA [id number] [place] [address] [place] pH (BldV) 7.35 [pH] Normal 7.32-7.42 [facility] Comment on above: Order Comment: Speci men Type: VENOUS BLOOD SPECIMENOrdering Facility: [facility] Address: [address] [place] [address] Performed By: #### 2 4344-4 ####[facility] LABCLIA [id number] [place] [address] [place] pH (BldV) 7.36 [pH] Normal 7.32-7.42 [facility] Comment on above: Order Comment: Speci men Type: VENOUS BLOOD SPECIMENOrdering Facility: [facility] Address: [address] [address] Performed By: #### 2 4344-4 ####[facility] LABCLIA [id number] [place] [address] [place] Potassium [Moles/Vol] 4.7 mmol/L Normal 3.5-5.0 [facility] Comment on above: Order Comment: Speci men Type: VENOUS BLOOD SPECIMENOrdering Facility: [facility] Address: [address] [address] Performed By: #### 2 4344-4 ####[facility] LABIA [id number] [place] [address] [place] Potassium [Moles/Vol] 4.3 mmol/L Normal 3.5-5.0 [facility] Comment on above: Order Comment: Speci men Type: VENOUS BLOOD SPECIMENOrdering Facility: [facility] Address: [address] [address] Performed By: #### 2 4344-4 ####[facility] LABIA [id number] [place] [address] [place] Sodium [Moles/Vol] 139 mmol/L Normal 136-144 [facility] Comment on above: Order Comment: Speci men Type: VENOUS BLOOD SPECIMENOrdering Facility: [facility] Address: [address] Performed By: #### 2 4344-4 ####[facility] LABIA [id number] [place] [address] [place] Sodium [Moles/Vol] 137 mmol/L Normal 136-144 [facility] Comment on above: Order Comment: Speci men Type: VENOUS BLOOD SPECIMENOrdering Facility: [facility] Address: [address] [place] [address] Performed By: #### 2 4344-4 ####[facility] LABCLIA [id number] [address] [place] [id number] [place] Magnesium SerPl-ncon 11-27 Magnesium [Mass/Vol] 2.2 mg/dL Normal 1.7-2.3 [facility] Comment on above: Order Comment: Speci men Type: BLOOD SPECIMENOrdering Facility: [facility] Address: [address] [address] Performed By: #### 1 9123-9, 33301-5, 2777-1 ####[facility] LABIA [id number] [place] [address] [place] [facility] [place] Phosphate [facility] 11-27 Phosphate [Mass/Vol] 3.9 mg/dL Normal 2.7-4.8 [facility] Comment on above: Order Comment: Speci men Type: BLOOD SPECIMENOrdering Facility: [facility] Address: [address] [address] Performed By: #### 1 9123-9, 03135-1, 2777-1 ####[facility] LABIA [id number] [place] [address] [place] THERAPY NTon 11-27-2022 THERAPY NT Normal [facility] XR CHEST 1V FRONTAL PORTon 0 11-27-2022 XR CHEST 1V FRONTAL PORT Normal [facility] Bacteria Bld Culton 11-26-19 23 Bacteria identified Cx Nom (Bld) Abnormal [facility] Comment on above: Performed By: #### 6 00-7 ####[facility] LABCLIA [id number] [place] [address] [place] Bacteria identified Cx Nom (Bld) ORGANISM ID: 1 Klebsiella (enterobacter) aerogenes Refer to specimen collected on 11/26/2022 1147 ([id number]) GRAM STAIN: Gram negative bacilli Abnormal [facility] Comment on above: Performed By: #### 6 00-7 ####[facility] LABCLIA [id number] [place] [address] [place] CASE MANAGEMon 11-26-2022 CASE MANAGEM Normal [facility] CBC panel Auto (Bld)on 11-26 Erythrocyte distribution width (RBC) [Ratio] 16.9 % High 11.5-15.0 [facility] Comment on above: Order Comment: Speci men Type: BLOOD SPECIMENOrdering Facility: [facility] Address: [address] [place] [address] Performed By: #### 5 8410-2 ####[facility] LABIA [id number] [address] [place] Hematocrit (Bld) [Volume fraction] 34.9 % Low 39.0-51.0 [facility] Comment on above: Order Comment: Speci men Type: BLOOD SPECIMENOrdering Facility: [facility] Address: [address] [place] [address] Performed By: #### 5 8410-2 ####[facility] LABIA [id number] [address] [place] Hemoglobin (Bld) [Mass/Vol] 11.1 g/dL Low 13.0-17.0 [facility] Comment on above: Order Comment: Speci men Type: BLOOD SPECIMENOrdering Facility: [facility] Address: [address] Performed By: #### 5 8410-2 ####[facility] LABIA [id number] [address] [place] MCH (RBC) [Entitic mass] 28.2 pg Normal 26.0-34.0 [facility] Comment on above: Order Comment: Speci men Type: BLOOD SPECIMENOrdering Facility: [facility] Address: [address] [place] [address] Performed By: #### 5 8410-2 ####[facility] LABIA [id number] [address] [place] MCHC (RBC) [Mass/Vol] 31.8 g/dL Normal 30.5-36.0 [facility] Comment on above: Order Comment: Speci men Type: BLOOD SPECIMENOrdering Facility: [facility] Address: [address] [place] [address] Performed By: #### 5 8410-2 ####[facility] LABIA [id number] [place] [address] [place] MCV (RBC) [Entitic vol] 88.8 fL Normal 80.0-100.0 [facility] Comment on above: Order Comment: Speci men Type: BLOOD SPECIMENOrdering Facility: [facility] Address: [address] [place] [address] Performed By: #### 5 8410-2 ####[facility] [id number] [place] [address] [place] Nucleated RBC (Bld) [#/Vol] 10*3/uL Normal <0.01 [facility] Comment on above: Order Comment: Speci men Type: BLOOD SPECIMENOrdering Facility: [facility] Address: [address] [place] [address] Performed By: #### 5 8410-2 ####[facility] LABIA [id number] [address] [place] Platelet mean volume (Bld) [Entitic vol] 12.2 fL Normal 9.0-12.7 [facility] Comment on above: Order Comment: Speci men Type: BLOOD SPECIMENOrdering Facility: [facility] Address: [address] [place] [address] Performed By: #### 5 8410-2 ####[facility] [id number] [place] [id number] [place] Platelets (Bld) [#/Vol] 88 10*3/uL Low 150-400 [facility] Comment on above: Order Comment: Speci men Type: BLOOD SPECIMENOrdering Facility: [facility] Address: [address] [place] [address] Result Comment: Resu lts checked and verified.No clot detected. Performed By: #### 5 8410-2 ####[facility] LABCLIA [id number] [place] [address] [place] RBC (Bld) [#/Vol] 3.93 10*6/uL Low 4.20-6.00 [facility] Comment on above: Order Comment: Speci men Type: BLOOD SPECIMENOrdering Facility: [facility] Address: [address] [place] [address] Performed By: #### 5 8410-2 ####[facility] LABCLIA [id number] [place] [address] [place] WBC (Bld) [#/Vol] 4.71 10*3/uL Normal 3.70-11.00 [facility] Comment on above: Order Comment: Speci men Type: BLOOD SPECIMENOrdering Facility: [facility] Address: [address] [place] [address] Performed By: #### 5 8410-2 ####[facility] LABCLIA [id number] [place] [address] [place] CONSULT PROGon 11-26-2022 CONSULT PROG Normal [facility] CRP SerPl-mCncon 11-26-2022 CRP [Mass/Vol] 17.0 mg/dL High <0.9 [facility] Comment on above: Order Comment: Speci men Type: BLOOD SPECIMENOrdering Facility: [facility] Address: [address] [place] [address] Performed By: #### 2 4323-8, 98183-6, 1987- ####[facility] LABCLIA [id number] [place] [address] [place] Comprehensive metabolic 2000 panelon 11-26-2022 Albumin [Mass/Vol] 2.8 g/dL Low 3.9-4.9 [facility] Comment on above: Order Comment: Speci men Type: BLOOD SPECIMENOrdering Facility: [facility] Address: [address] [place] [address] Performed By: #### 2 4323-8, 83720-8, 1988-02 ####[facility] LABCLIA [id number] [place] [address] [place] ALP [Catalytic activity/Vol] 95 U/L Normal 38-113 [facility] Comment on above: Order Comment: Speci men Type: BLOOD SPECIMENOrdering Facility: [facility] Address: [address] [place] [address] Performed By: #### 2 4323-8, 83469-9, 1988-02 ####[facility] LABCLIA [id number] [place] [address] [place] ALT [Catalytic activity/Vol] U/L Low 10-54 [facility] Comment on above: Order Comment: Speci men Type: BLOOD SPECIMENOrdering Facility: [facility] Address: [address] [place] [address] Result Comment: Resu lt rechecked. Performed By: #### 2 4323-8, 94703-6, 1988-02 ####[facility] LABCLIA [id number] [place] [address] [place] Anion gap [Moles/Vol] 10 mmol/L Normal 9-18 [facility] Comment on above: Order Comment: Speci men Type: BLOOD SPECIMENOrdering Facility: [facility] Address: [address] [place], [place] [address] Performed By: #### 2 4323-8, 99352-3, 1988-02 ####[facility] LABCLIA [id number] [place] [address] [place] AST [Catalytic activity/Vol] 10 U/L Low 14-40 [facility] Comment on above: Order Comment: Speci men Type: BLOOD SPECIMENOrdering Facility: [facility] Address: [address] [place] [address] Performed By: #### 2 4323-8, 06430-3, 1988-02 ####[facility] LABCLIA [id number] [place] [address] [place] Bilirubin [Mass/Vol] 0.4 mg/dL Normal 0.2-1.3 [facility] Comment on above: Order Comment: Speci men Type: BLOOD SPECIMENOrdering Facility: [facility] Address: [address] [place] [address] Performed By: #### 2 4323-8, 57917-8, 1988-02 ####[facility] LABCLIA [id number] [place] [address] [place] Calcium [Mass/Vol] 8.1 mg/dL Low 8.5-10.2 [facility] Comment on above: Order Comment: Speci men Type: BLOOD SPECIMENOrdering Facility: [facility] Address: [address] [place], [place] [address] Performed By: #### 2 4323-8, 16905-9, 1988-02 ####[facility] LABCLIA [id number] [place] [address] [place] Chloride [Moles/Vol] 108 mmol/L High 97-105 [facility] Comment on above: Order Comment: Speci men Type: BLOOD SPECIMENOrdering Facility: [facility] Address: [address] [place], [place] [address] Performed By: #### 2 4323-8, 62578-9, 1988-02 ####[facility] LABCLIA [id number] [place] [address] [address] [place] CO2 [Moles/Vol] 20 mmol/L Low 22-30 [facility] Comment on above: Order Comment: Speci men Type: BLOOD SPECIMENOrdering Facility: [facility] Address: [address] [address] Performed By: #### 2 4323-8, 72644-3, 1988-02 ####[facility] LABCLIA [id number] [place] [address] [place] Creatinine [Mass/Vol] 1.92 mg/dL High 0.73-1.22 [facility] Comment on above: Order Comment: Speci men Type: BLOOD SPECIMENOrdering Facility: [facility] Address: [address] [place] [address] Performed By: #### 2 432-8, 50840-5, 1988-02 ####[facility] LABIA [id number] [address] STATES OF [facility] ESTIMATED GLOMERULAR FILTRATION RATE 38 mL/min/1.73m??? Low >=60 [facility] Comment on above: Order Comment: Speci men Type: BLOOD SPECIMENOrdering Facility: [facility] Address: [address] [place] [address] Result Comment: Karina mated Glomerular Filtration Rate [...] actual GFR. Performed By: #### 2 4323-8, 71024-5, 1988-02 ####[facility] LABIA [id number] [place] [address] [place] Glucose [Mass/Vol] 88 mg/dL Normal 74-99 [facility] Comment on above: Order Comment: Speci men Type: BLOOD SPECIMENOrdering Facility: [facility] Address: [address] [place], [place] [address], [place] [address] Result Comment: The [place] [employer] (ADA) provides guidance for cutoff [...] Standards of Medical Care in Diabetes 2016, [place] [employer]. Diabetes Care. 2016.39(Suppl 1). Performed By: #### 2 4323-8, 67175-5, 1988-02 ####[facility] LABCLIA [id number] [place] [address] [place] Potassium [Moles/Vol] 4.4 mmol/L Normal 3.7-5.1 [facility] Comment on above: Order Comment: Speci men Type: BLOOD SPECIMENOrdering Facility: [facility] Address: [address] [phone] Performed By: #### 2 8, , 1988-02 ####[facility] LABCLIA [id number] [place] [address] [place] Protein [Mass/Vol] 5.2 g/dL Low 6.3-8.0 [facility] Comment on above: Order Comment: Speci men Type: BLOOD SPECIMENOrdering Facility: [facility] Address: [address] [phone] Performed By: #### 2 432-8, , 1988-02 ####[facility] LABCLIA [id number] [place] [address] [place] Sodium [Moles/Vol] 138 mmol/L Normal 136-144 [facility] Comment on above: Order Comment: Speci men Type: BLOOD SPECIMENOrdering Facility: [facility] Address: [address] [phone] Performed By: #### 2 4323-8, 41084-2, 1988-02 ####[facility] LABIA [id number] [place] [address] [place] Urea nitrogen [Mass/Vol] 44 mg/dL High 9-24 [facility] Comment on above: Order Comment: Chaz trevizo Type: BLOOD SPECIMENOrdering Facility: [facility] Address: [address] [place], [place] [address] Performed By: #### 2 4323-8, 11156-7, 1988-02 ####[facility] LABCLIA [id number] [place] [address] [place] ECG COMPLETEon 11-26-2022 ECG COMPLETE Normal [facility] HISTORY PHYSICALon HISTORY PHYSICAL Normal [facility] MEDICAL EMERon 11-26-2022 MEDICAL KALEB Normal [facility] NURSING PROGon 11-26-2022 NURSING PROG Normal [facility] NUTRITIONon 11-26-2022 NUTRITION Normal [facility] PT panel Coag (PPP)on 2022 INR Coag (PPP) [Relative time] 1.2 {INR} Normal 0.9-1.3 [facility] Comment on above: Order Comment: Chaz trevizo Type: BLOOD SPECIMENOrdering Facility: [facility] Address: [address] [place], [place] [phone] Result Comment: Bouchra min K Antagonist (VKA) Therapeutic Range: INR 2 to 3 (Target INR of 2.5)Note: For patients treated with VKA drugs, such as warfarin, the [place] [employer] 2012 Guideline recommends [...] of 3).Mukesh GH, et al. Chest 2012, 141:7S-47SAlma RA, et al. [facility] 2017, 70: 252-289 Performed By: #### 3 4528-0 ####[facility] LABCLIA [id number] [place] [address] [place] PT Coag (PPP) [Time] 12.2 s Normal 9.7-13.0 [facility] Comment on above: Order Comment: Speci joseline Type: BLOOD SPECIMENOrdering Facility: [facility] Address: [address] [place] [address] Performed By: #### 3 4528-0 ####[facility] LABIA [id number] [address] OF [facility] Procalcitonin SerPl-mCncon 0 11-26-2022 Procalcitonin [Mass/Vol] 11.48 ng/mL High <0.09 [facility] Comment on above: Order Comment: Chaz trevizo Type: BLOOD SPECIMENOrdering Facility: [facility] Address: [address] [place] [address] Result Comment: For a guided interpretation of test results, please visit the Change in Procalcitonin Calculator, [email or web address]. Performed By: #### 2 4323-8, 79317-1, 1988-02 ####[facility] LABCLIA [id number] [address] OF [facility] SEPSIS LACTATEon 11-26-2022 Lactate [Moles/Vol] 2.4 mmol/L High <=2.0 [facility] Comment on above: Order Comment: Speci joseline Type: BLOOD SPECIMENOrdering Facility: [facility] Address: [address] [place] [address] Performed By: #### S LACT ####[facility] LABCLIA [id number] [place] [address] [place] STAPH AUREUS PCRon S. aureus and MRSA panel KELLIE+probe (Nose) Normal Negative [facility] Comment on above: Order Comment: Speci men Type: SWAB OF INTERNAL NOSEOrdering Facility: [facility] Address: [address] [place] [address] Result Comment: Nega tive for Staphylococcus aureus by PCR.Negative for MRSA by PCR Performed By: #### S APCR ####[facility] LABCLIA [id number] [place] [address] [place] THERAPY NTon 11-26-2022 THERAPY NT Normal [facility] THERAPY NT Normal [facility] US KIDNEY/BLADDERon 11-26-19 23 US KIDNEY/BLADDER Normal [facility] Urinalysis complete pnl Uron 11-26-2022 Urinalysis complete panel (U) Normal [facility] Comment on above: Order Comment: Speci men Type: URINE SPECIMENOrdering Facility: [facility] Address: [address] [place] [address] Performed By: #### 2 4356-8 ####[facility] LABCLIA [id number] [place] [address] [place] XR CHEST 1V FRONTAL PORTon 0 11-26-2022 XR CHEST 1V FRONTAL PORT Normal [facility] CASE MGT INIT ASSESon 2022 CASE MGT INIT ASSES Normal [facility] CBC panel Auto (Bld)on 11-25 Erythrocyte distribution width (RBC) [Ratio] 17.2 % High 11.5-15.0 [facility] Comment on above: Order Comment: Speci men Type: BLOOD SPECIMENOrdering Facility: [facility] Address: [address] [place] [address] Performed By: #### 5 8410-2 ####[facility] LABCLIA [id number] [place] [address] [place] Hematocrit (Bld) [Volume fraction] 36.9 % Low 39.0-51.0 [facility] Comment on above: Order Comment: Speci men Type: BLOOD SPECIMENOrdering Facility: [facility] Address: [address] [place] [address] Performed By: #### 5 8410-2 ####[facility] [id number] [place] [address] [place] Hemoglobin (Bld) [Mass/Vol] 11.6 g/dL Low 13.0-17.0 [facility] Comment on above: Order Comment: Speci men Type: BLOOD SPECIMENOrdering Facility: [facility] Address: [address] [place] [address] Performed By: #### 5 8410-2 ####[facility] [id number] [address] [place] MCH (RBC) [Entitic mass] 27.8 pg Normal 26.0-34.0 [facility] Comment on above: Order Comment: Speci men Type: BLOOD SPECIMENOrdering Facility: [facility] Address: [address] [place] [address] Performed By: #### 5 8410-2 ####[facility] [id number] [place] [address] [place] MCHC (RBC) [Mass/Vol] 31.4 g/dL Normal 30.5-36.0 [facility] Comment on above: Order Comment: Speci men Type: BLOOD SPECIMENOrdering Facility: [facility] Address: [address] [place] [address] Performed By: #### 5 8410-2 ####[facility] [id number] [place] [address] [place] MCV (RBC) [Entitic vol] 88.3 fL Normal 80.0-100.0 [facility] Comment on above: Order Comment: Speci men Type: BLOOD SPECIMENOrdering Facility: [facility] Address: [address] [place], [place] [phone] Performed By: #### 5 8410-2 ####[facility] LABIA [id number] [place] [address] [place] Nucleated RBC (Bld) [#/Vol] 10*3/uL Normal <0.01 [facility] Comment on above: Order Comment: Speci men Type: BLOOD SPECIMENOrdering Facility: [facility] Address: [address] [place], [place] [phone] Performed By: #### 5 8410-2 ####[facility] LABIA [id number] [place] [address] [place] Platelet mean volume (Bld) [Entitic vol] 12.0 fL Normal 9.0-12.7 [facility] Comment on above: Order Comment: Speci men Type: BLOOD SPECIMENOrdering Facility: [facility] Address: [address] [place], [place] [phone] Performed By: #### 5 8410-2 ####[facility] LABIA [id number] [place] [address] [place] Platelets (Bld) [#/Vol] 96 10*3/uL Low 150-400 [facility] Comment on above: Order Comment: Speci men Type: BLOOD SPECIMENOrdering Facility: [facility] Address: [address] [place], [place] [phone] Result Comment: No c lot detected. Performed By: #### 5 8410-2 ####[facility] LABIA [id number] [place] [address] [place] RBC (Bld) [#/Vol] 4.18 10*6/uL Low 4.20-6.00 [facility] Comment on above: Order Comment: Speci men Type: BLOOD SPECIMENOrdering Facility: [facility] Address: [address] [place], [place] [phone] Performed By: #### 5 8410-2 ####[facility] LABIA [id number] [place] [address] [place] WBC (Bld) [#/Vol] 5.31 10*3/uL Normal 3.70-11.00 [facility] Comment on above: Order Comment: Speci men Type: BLOOD SPECIMENOrdering Facility: [facility] Address: [address] [place], [place] [phone] Performed By: #### 5 8410-2 ####[facility] LABIA [id number] [place] [address] [place] CONSULT PROGon 11-25-2022 CONSULT PROG Normal [facility] CONSULT PROG Normal [facility] Comprehensive metabolic 2000 panelon 11-25-2022 Albumin [Mass/Vol] 3.1 g/dL Low 3.9-4.9 [facility] Comment on above: Order Comment: Speci men Type: BLOOD SPECIMENOrdering Facility: [facility] Address: [address] [place], [place] [phone] Performed By: #### 2 4323-8 ####[facility] LABIA [id number] [place] [address] [place] ALP [Catalytic activity/Vol] 98 U/L Normal 38-113 [facility] Comment on above: Order Comment: Speci men Type: BLOOD SPECIMENOrdering Facility: [facility] Address: [address] [place], [place] [phone] Performed By: #### 2 4323-8 ####[facility] LABIA [id number] [place] [address] [place] ALT [Catalytic activity/Vol] U/L Low 10-54 [facility] Comment on above: Order Comment: Speci men Type: BLOOD SPECIMENOrdering Facility: [facility] Address: [address] Result Comment: Resu lt rechecked. Performed By: #### 2 4323-8 ####[facility] LABCLIA [id number] [place] [address] [place] Anion gap [Moles/Vol] 9 mmol/L Normal 9-18 [facility] Comment on above: Order Comment: Speci men Type: BLOOD SPECIMENOrdering Facility: [facility] Address: [address] Performed By: #### 2 4323-8 ####[facility] LABCLIA [id number] [place] [address] [place] AST [Catalytic activity/Vol] 8 U/L Low 14-40 [facility] Comment on above: Order Comment: Speci men Type: BLOOD SPECIMENOrdering Facility: [facility] Address: [address] Performed By: #### 2 4323-8 ####[facility] LABCLIA [id number] [place] [address] [place] Bilirubin [Mass/Vol] 0.4 mg/dL Normal 0.2-1.3 [facility] Comment on above: Order Comment: Speci men Type: BLOOD SPECIMENOrdering Facility: [facility] Address: [address] Performed By: #### 2 4323-8 ####[facility] LABCLIA [id number] [place] [address] [place] Calcium [Mass/Vol] 8.4 mg/dL Low 8.5-10.2 [facility] Comment on above: Order Comment: Speci men Type: BLOOD SPECIMENOrdering Facility: [facility] Address: [address] Performed By: #### 2 4323-8 ####[facility] LABCLIA [id number] [address] [place] Chloride [Moles/Vol] 109 mmol/L High 97-105 [facility] Comment on above: Order Comment: Speci men Type: BLOOD SPECIMENOrdering Facility: [facility] Address: [address] [place] [address] Performed By: #### 2 4323-8 ####[facility] LABCLIA [id number] [address] OF [facility] CO2 [Moles/Vol] 22 mmol/L Normal 22-30 [facility] Comment on above: Order Comment: Speci men Type: BLOOD SPECIMENOrdering Facility: [facility] Address: [address] [place] [address] Performed By: #### 2 4323-8 ####[facility] LABIA [id number] [address] OF [facility] Creatinine [Mass/Vol] 1.18 mg/dL Normal 0.73-1.22 [facility] Comment on above: Order Comment: Speci men Type: BLOOD SPECIMENOrdering Facility: [facility] Address: [address] [place] [address] Performed By: #### 2 4323-8 ####[facility] LABIA [id number] [address] OF [facility] ESTIMATED GLOMERULAR FILTRATION RATE 69 mL/min/1.73m??? Normal >=60 [facility] Comment on above: Order Comment: Speci men Type: BLOOD SPECIMENOrdering Facility: [facility] Address: [address] [place] [address] Result Comment: Karina mated Glomerular Filtration Rate [...] actual GFR. Performed By: #### 2 4323-8 ####[facility] LABCLIA [id number] [place] [address] [place] Glucose [Mass/Vol] 102 mg/dL High 74-99 [facility] Comment on above: Order Comment: Speci men Type: BLOOD SPECIMENOrdering Facility: [facility] Address: [address] [place] [address] Result Comment: The [place] [employer] (ADA) provides guidance for cutoff [...] Standards of Medical Care in Diabetes 2016, [place] [employer]. Diabetes Care. 2016.39(Suppl 1). Performed By: #### 2 4323-8 ####[facility] LABIA [id number] [place] [address] [place] Potassium [Moles/Vol] 4.8 mmol/L Normal 3.7-5.1 [facility] Comment on above: Order Comment: Speci men Type: BLOOD SPECIMENOrdering Facility: [facility] Address: [address] [address] Performed By: #### 2 4323-8 ####[facility] LABIA [id number] [place] [address] [place] Protein [Mass/Vol] 5.5 g/dL Low 6.3-8.0 [facility] Comment on above: Order Comment: Speci men Type: BLOOD SPECIMENOrdering Facility: [facility] Address: [address] [address] Performed By: #### 2 4323-8 ####[facility] LABCLIA [id number] [place] [address] [place] Sodium [Moles/Vol] 140 mmol/L Normal 136-144 [facility] Comment on above: Order Comment: Speci men Type: BLOOD SPECIMENOrdering Facility: [facility] Address: [address] [place] [address] Performed By: #### 2 4323-8 ####[facility] LABCLIA [id number] [place] [address] [place] Urea nitrogen [Mass/Vol] 31 mg/dL High 9-24 [facility] Comment on above: Order Comment: Speci men Type: BLOOD SPECIMENOrdering Facility: [facility] Address: [address] [place] [address] Performed By: #### 2 4323-8 ####[facility] LABCLIA [id number] [place] [address] [place] THERAPY NTon 11-25-2022 THERAPY NT Normal [facility] CBC panel Auto (Bld)on 11-24 Erythrocyte distribution width (RBC) [Ratio] 17.2 % High 11.5-15.0 [facility] Comment on above: Order Comment: Speci men Type: BLOOD SPECIMENOrdering Facility: [facility] Address: [address] [place] [address] Performed By: #### 5 8410-2 ####[facility] LABCLIA [id number] [place] [address] [place] Hematocrit (Bld) [Volume fraction] 37.8 % Low 39.0-51.0 [facility] Comment on above: Order Comment: Speci men Type: BLOOD SPECIMENOrdering Facility: [facility] Address: [address] [place] [address] Performed By: #### 5 8410-2 ####[facility] LABCLIA [id number] [address] STATES OF [facility] Hemoglobin (Bld) [Mass/Vol] 12.1 g/dL Low 13.0-17.0 [facility] Comment on above: Order Comment: Speci men Type: BLOOD SPECIMENOrdering Facility: [facility] Address: [address] [place] [address] Performed By: #### 5 8410-2 ####[facility] LABIA [id number] [address] MCH (RBC) [Entitic mass] 28.4 pg Normal 26.0-34.0 [facility] Comment on above: Order Comment: Speci men Type: BLOOD SPECIMENOrdering Facility: [facility] Address: [address] [place] [address] Performed By: #### 5 8410-2 ####[facility] LABIA [id number] [address] MCHC (RBC) [Mass/Vol] 32.0 g/dL Normal 30.5-36.0 [facility] Comment on above: Order Comment: Speci men Type: BLOOD SPECIMENOrdering Facility: [facility] Address: [address] [place], [place] [address] Performed By: #### 5 8410-2 ####[facility] LABIA [id number] [place] [address] [place] MCV (RBC) [Entitic vol] 88.7 fL Normal 80.0-100.0 [facility] Comment on above: Order Comment: Speci men Type: BLOOD SPECIMENOrdering Facility: [facility] Address: [address] [place], [place] [address] Performed By: #### 5 8410-2 ####[facility] LABIA [id number] [address] [place] Nucleated RBC (Bld) [#/Vol] 10*3/uL Normal <0.01 [facility] Comment on above: Order Comment: Speci men Type: BLOOD SPECIMENOrdering Facility: [facility] Address: [address] [place], [place] [address] Performed By: #### 5 8410-2 ####[facility] LABCLIA [id number] [place] [address] [place] Platelet mean volume (Bld) [Entitic vol] 12.2 fL Normal 9.0-12.7 [facility] Comment on above: Order Comment: Speci men Type: BLOOD SPECIMENOrdering Facility: [facility] Address: [address] [place], [place] [address] Performed By: #### 5 8410-2 ####[facility] LABCLIA [id number] [place] [address] [place] Platelets (Bld) [#/Vol] 111 10*3/uL Low 150-400 [facility] Comment on above: Order Comment: Speci men Type: BLOOD SPECIMENOrdering Facility: [facility] Address: [address] [place], [place] [address] Performed By: #### 5 8410-2 ####[facility] LABIA [id number] [place] [address] [place] RBC (Bld) [#/Vol] 4.26 10*6/uL Normal 4.20-6.00 [facility] Comment on above: Order Comment: Speci men Type: BLOOD SPECIMENOrdering Facility: [facility] Address: [address] [place], [place] [address] Performed By: #### 5 8410-2 ####[facility] LABIA [id number] [place] [address] [place] WBC (Bld) [#/Vol] 4.79 10*3/uL Normal 3.70-11.00 [facility] Comment on above: Order Comment: Speci men Type: BLOOD SPECIMENOrdering Facility: [facility] Address: [address] [id number] Performed By: #### 5 8410-2 ####[facility] LABCLIA [id number] [place] [address] [place] CONSULTon 11-24-2022 CONSULT Normal [facility] CONSULT Normal [facility] CONSULT PROGon 11-24-2022 CONSULT PROG Normal [facility] Comprehensive metabolic 2000 panelon 11-24-2022 Albumin [Mass/Vol] 3.3 g/dL Low 3.9-4.9 [facility] Comment on above: Order Comment: Speci men Type: BLOOD SPECIMENOrdering Facility: [facility] Address: [address] Performed By: #### 1 9123-9, 2777, 99086-5 ####[facility] LABCLIA [id number] [place] [address] [place] ALP [Catalytic activity/Vol] 91 U/L Normal 38-113 [facility] Comment on above: Order Comment: Speci men Type: BLOOD SPECIMENOrdering Facility: [facility] Address: [address] [place], [place] [address] Performed By: #### 1 9123-9, 2777-, 02806-6 ####[facility] LABIA [id number] [place] [address] [place] ALT [Catalytic activity/Vol] U/L Low 10-54 [facility] Comment on above: Order Comment: Speci men Type: BLOOD SPECIMENOrdering Facility: [facility] Address: [address] Result Comment: Resu lt rechecked. Performed By: #### 1 9123-9, 2777-, 96244-1 ####[facility] LABCLIA [id number] [place] [address] [place] Anion gap [Moles/Vol] 8 mmol/L Low 9-18 [facility] Comment on above: Order Comment: Speci men Type: BLOOD SPECIMENOrdering Facility: [facility] Address: [address] [place], [place] [address] Performed By: #### 1 9123-9, 2776-10, ####[facility] LABCLIA [id number] [place] [address] [place] AST [Catalytic activity/Vol] 9 U/L Low 14-40 [facility] Comment on above: Order Comment: Speci men Type: BLOOD SPECIMENOrdering Facility: [facility] Address: [address] [place], [place] [address] Performed By: #### 1 9123-9, 2776-10, ####[facility] LABCLIA [id number] [place] [address] [place] Bilirubin [Mass/Vol] 0.2 mg/dL Normal 0.2-1.3 [facility] Comment on above: Order Comment: Speci men Type: BLOOD SPECIMENOrdering Facility: [facility] Address: [address] [place], [place] [address] Performed By: #### 1 9123-9, 2776-10, ####[facility] LABCLIA [id number] [place] [address] [place] Calcium [Mass/Vol] 8.3 mg/dL Low 8.5-10.2 [facility] Comment on above: Order Comment: Speci men Type: BLOOD SPECIMENOrdering Facility: [facility] Address: [address] [place], [place] [address] Performed By: #### 1 9123-9, 2776-10, ####[facility] LABCLIA [id number] [place] [address] [place] Chloride [Moles/Vol] 110 mmol/L High 97-105 [facility] Comment on above: Order Comment: Speci men Type: BLOOD SPECIMENOrdering Facility: [facility] Address: [address] [place] [address] Performed By: #### 1 9123-9, 27704-18, ####[facility] LABCLIA [id number] [place] [address] [place] CO2 [Moles/Vol] 24 mmol/L Normal 22-30 [facility] Comment on above: Order Comment: Speci men Type: BLOOD SPECIMENOrdering Facility: [facility] Address: [address] [place] [address] Performed By: #### 1 9123-9, 2776-10, ####[facility] LABCLIA [id number] [place] [address] [place] Creatinine [Mass/Vol] 0.94 mg/dL Normal 0.73-1.22 [facility] Comment on above: Order Comment: Speci men Type: BLOOD SPECIMENOrdering Facility: [facility] Address: [address] [place] [address] Performed By: #### 1 9123-9, 2776-10, ####[facility] LABIA [id number] [place] [address] [place] ESTIMATED GLOMERULAR FILTRATION RATE 91 mL/min/1.73m??? Normal >=60 [facility] Comment on above: Order Comment: Speci men Type: BLOOD SPECIMENOrdering Facility: [facility] Address: [address] [place] [address] Result Comment: Karina mated Glomerular Filtration Rate [...] actual GFR. Performed By: #### 1 9123-9, 27704-18, 00223-3 ####[facility] LABCLIA [id number] [place] [address] [place] Glucose [Mass/Vol] 68 mg/dL Low 74-99 [facility] Comment on above: Order Comment: Speci men Type: BLOOD SPECIMENOrdering Facility: [facility] Address: [address] [place] [address] Result Comment: The [place] [employer] (ADA) provides guidance for cutoff [...] Standards of Medical Care in Diabetes 2016, [place] [employer]. Diabetes Care. 2016.39(Suppl 1). Performed By: #### 1 9123-9, 2777-, 11326-4 ####[facility] LABIA [id number] [place] [address] [place] Potassium [Moles/Vol] 4.1 mmol/L Normal 3.7-5.1 [facility] Comment on above: Order Comment: Speci men Type: BLOOD SPECIMENOrdering Facility: [facility] Address: [address] [place], [place] [phone] Performed By: #### 1 9123-9, 2777-, 28512-7 ####[facility] LABIA [id number] [place] [address] [place] Protein [Mass/Vol] 5.7 g/dL Low 6.3-8.0 [facility] Comment on above: Order Comment: Speci men Type: BLOOD SPECIMENOrdering Facility: [facility] Address: [address] [place], [place] [phone] Performed By: #### 1 9123-9, 2777-1, 31744-1 ####[facility] LABIA [id number] [place] [address] [place] Sodium [Moles/Vol] 142 mmol/L Normal 136-144 [facility] Comment on above: Order Comment: Speci men Type: BLOOD SPECIMENOrdering Facility: [facility] Address: [address] [place], [place] [address] Performed By: #### 1 9123-9, 2777-1, 36349-6 ####[facility] LABIA [id number] [place] [address] [place] Urea nitrogen [Mass/Vol] 22 mg/dL Normal 9-24 [facility] Comment on above: Order Comment: Speci men Type: BLOOD SPECIMENOrdering Facility: [facility] Address: [address] [place], [place] [address] Performed By: #### 1 9123-9, 2777-, 60391-0 ####[facility] [id number] [place] [address] [place] Magnesium SerPl-mCncon 11-24 Magnesium [Mass/Vol] 2.2 mg/dL Normal 1.7-2.3 [facility] Comment on above: Order Comment: Speci men Type: BLOOD SPECIMENOrdering Facility: [facility] Address: [address] [place] [address] Performed By: #### 1 9123-9, 2777-1, 93634-4 ####[facility] [id number] [place] [address] [place] Phosphate SerPl-mCncon 11-24 Phosphate [Mass/Vol] 3.3 mg/dL Normal 2.7-4.8 [facility] Comment on above: Order Comment: Speci men Type: BLOOD SPECIMENOrdering Facility: [facility] Address: [address] [address] Performed By: #### 1 9123-9, 2777-1, 17330-0 ####[facility] LABIA [id number] [address] [place] CBC panel Auto (Bld)on 11-23 Erythrocyte distribution width (RBC) [Ratio] 16.8 % High 11.5-15.0 [facility] Comment on above: Order Comment: Speci men Type: BLOOD SPECIMENOrdering Facility: [facility] Address: [address] [place] [address] Performed By: #### 5 8410-2 ####[facility] LABIA [id number] [address] [place] Hematocrit (Bld) [Volume fraction] 35.7 % Low 39.0-51.0 [facility] Comment on above: Order Comment: Speci men Type: BLOOD SPECIMENOrdering Facility: [facility] Address: [address] [place] [address] Performed By: #### 5 8410-2 ####[facility] LABIA [id number] [address] [place] Hemoglobin (Bld) [Mass/Vol] 11.3 g/dL Low 13.0-17.0 [facility] Comment on above: Order Comment: Speci men Type: BLOOD SPECIMENOrdering Facility: [facility] Address: [address] [address] Performed By: #### 5 8410-2 ####[facility] LABIA [id number] [address] [place] MCH (RBC) [Entitic mass] 27.9 pg Normal 26.0-34.0 [facility] Comment on above: Order Comment: Speci men Type: BLOOD SPECIMENOrdering Facility: [facility] Address: [address] [place], [place] [address] Performed By: #### 5 8410-2 ####[facility] LABIA [id number] [address] STATES [facility] MCHC (RBC) [Mass/Vol] 31.7 g/dL Normal 30.5-36.0 [facility] Comment on above: Order Comment: Speci men Type: BLOOD SPECIMENOrdering Facility: [facility] Address: [address] [place], [place] [address] Performed By: #### 5 8410-2 ####[facility] LABIA [id number] [place] [address] [place] MCV (RBC) [Entitic vol] 88.1 fL Normal 80.0-100.0 [facility] Comment on above: Order Comment: Speci men Type: BLOOD SPECIMENOrdering Facility: [facility] Address: [address] [place], [place] [address] Performed By: #### 5 8410-2 ####[facility] [id number] [place] [address] [place] Nucleated RBC (Bld) [#/Vol] 10*3/uL Normal <0.01 [facility] Comment on above: Order Comment: Speci men Type: BLOOD SPECIMENOrdering Facility: [facility] Address: [address] [place] [phone] Performed By: #### 5 8410-2 ####[facility] LABIA [id number] [address] [place] Platelet mean volume (Bld) [Entitic vol] 12.7 fL Normal 9.0-12.7 [facility] Comment on above: Order Comment: Speci men Type: BLOOD SPECIMENOrdering Facility: [facility] Address: [address] [place], [place] [address] Performed By: #### 5 8410-2 ####[facility] LABIA [id number] [place] [address] [place] Platelets (Bld) [#/Vol] 106 10*3/uL Low 150-400 [facility] Comment on above: Order Comment: Speci men Type: BLOOD SPECIMENOrdering Facility: [facility] Address: [address] [place], [place] [address] Performed By: #### 5 8410-2 ####[facility] LABCLIA [id number] [place] [address] [place] RBC (Bld) [#/Vol] 4.05 10*6/uL Low 4.20-6.00 [facility] Comment on above: Order Comment: Speci men Type: BLOOD SPECIMENOrdering Facility: [facility] Address: [address] [place] [address] Performed By: #### 5 8410-2 ####[facility] LABCLIA [id number] [place] [address] [place] [facility] WBC (Bld) [#/Vol] 2.81 10*3/uL Low 3.70-11.00 [facility] Comment on above: Order Comment: Speci men Type: BLOOD SPECIMENOrdering Facility: [facility] Address: [address] [place], [place] [address] Performed By: #### 5 8410-2 ####[facility] LABCLIA [id number] [place] [address] [place] Comprehensive metabolic 2000 panelon 11-23-2022 Albumin [Mass/Vol] 3.2 g/dL Low 3.9-4.9 [facility] Comment on above: Order Comment: Speci men Type: BLOOD SPECIMENOrdering Facility: [facility] Address: [address] [place], [place] [address] Performed By: #### 1 9123-9, 2777-1, 92391-3 ####[facility] LABCLIA [id number] [place] [address] [place] ALP [Catalytic activity/Vol] 84 U/L Normal 38-113 [facility] Comment on above: Order Comment: Speci men Type: BLOOD SPECIMENOrdering Facility: [facility] Address: [address] [place] [address] Performed By: #### 1 9123-9, 27704-18, 64342-7 ####[facility] LABCLIA [id number] [place] [address] [place] ALT [Catalytic activity/Vol] U/L Low 10-54 [facility] Comment on above: Order Comment: Speci men Type: BLOOD SPECIMENOrdering Facility: [facility] Address: [address] [place], [place] [address] Performed By: #### 1 9123-9, 2776-10, 47497-2 ####[facility] LABCLIA [id number] [place] [address] [place] Anion gap [Moles/Vol] 10 mmol/L Normal 9-18 [facility] Comment on above: Order Comment: Speci men Type: BLOOD SPECIMENOrdering Facility: [facility] Address: [address] [place], [place] [address] Performed By: #### 1 9123-9, 2776-10, ####[facility] LABCLIA [id number] [place] [address] [place] AST [Catalytic activity/Vol] 13 U/L Low 14-40 [facility] Comment on above: Order Comment: Speci men Type: BLOOD SPECIMENOrdering Facility: [facility] Address: [address] [place], [place] [address] Performed By: #### 1 9123-9, 2776-10, 74621-3 ####[facility] LABCLIA [id number] [place] [address] [place] Bilirubin [Mass/Vol] 0.2 mg/dL Normal 0.2-1.3 [facility] Comment on above: Order Comment: Speci men Type: BLOOD SPECIMENOrdering Facility: [facility] Address: [address] Performed By: #### 1 9123-9, 2776-10, ####[facility] LABCLIA [id number] [place] [address] [place] Calcium [Mass/Vol] 8.3 mg/dL Low 8.5-10.2 [facility] Comment on above: Order Comment: Speci men Type: BLOOD SPECIMENOrdering Facility: [facility] Address: [address] Performed By: #### 1 9123-9, 27704-18, ####[facility] LABCLIA [id number] [place] [address] [place] Chloride [Moles/Vol] 112 mmol/L High 97-105 [facility] Comment on above: Order Comment: Speci men Type: BLOOD SPECIMENOrdering Facility: [facility] Address: [address] Performed By: #### 1 9123-9, 2776-10, ####[facility] LABCLIA [id number] [place] [address] [place] CO2 [Moles/Vol] 21 mmol/L Low 22-30 [facility] Comment on above: Order Comment: Speci men Type: BLOOD SPECIMENOrdering Facility: [facility] Address: [address] Performed By: #### 1 9123-9, 2776-10, ####[facility] LABCLIA [id number] [place] [address] [place] Creatinine [Mass/Vol] 0.84 mg/dL Normal 0.73-1.22 [facility] Comment on above: Order Comment: Speci men Type: BLOOD SPECIMENOrdering Facility: [facility] Address: [address] [place] [address] Performed By: #### 1 9123-9, 2777-1, 18757-0 ####[facility] LABCLIA [id number] [place] [address] [place] ESTIMATED GLOMERULAR FILTRATION RATE 97 mL/min/1.73m??? Normal >=60 [facility] Comment on above: Order Comment: Chaz trevizo Type: BLOOD SPECIMENOrdering Facility: [facility] Address: [address] [phone] Result Comment: Karina mated Glomerular Filtration Rate [...] GFR. Performed By: #### 1 9123-9, 2777-1, 74687-2 ####[facility] LABIA [id number] [place] [id number] [place] Glucose [Mass/Vol] 102 mg/dL High 74-99 [facility] Comment on above: Order Comment: Chaz trevizo Type: BLOOD SPECIMENOrdering Facility: [facility] Address: [address] [phone] Result Comment: The [place] [employer] (ADA) provides guidance for cutoff [...] Standards of Medical Care in Diabetes 2016, [place] [employer]. Diabetes Care. 2016.39(Suppl 1). Performed By: #### 1 9123-9, 2777-, 37674-7 ####[facility] LABIA [id number] [place] [address] [place] Potassium [Moles/Vol] 4.3 mmol/L Normal 3.7-5.1 [facility] Comment on above: Order Comment: Speci men Type: BLOOD SPECIMENOrdering Facility: [facility] Address: [address] [address] Performed By: #### 1 9123-9, 2777, 35790-1 ####[facility] LABIA [id number] [place] [address] [place] Protein [Mass/Vol] 5.3 g/dL Low 6.3-8.0 [facility] Comment on above: Order Comment: Speci men Type: BLOOD SPECIMENOrdering Facility: [facility] Address: [address] [address] Performed By: #### 1 9123-9, 2776-10, 61185-3 ####[facility] [id number] [place] [address] [place] Sodium [Moles/Vol] 143 mmol/L Normal 136-144 [facility] Comment on above: Order Comment: Speci men Type: BLOOD SPECIMENOrdering Facility: [facility] Address: [address] Performed By: #### 1 9123-9, 27704-18, 92216-3 ####[facility] LABIA [id number] [place] [address] [place] Urea nitrogen [Mass/Vol] 21 mg/dL Normal 9-24 [facility] Comment on above: Order Comment: Speci men Type: BLOOD SPECIMENOrdering Facility: [facility] Address: [address] Performed By: #### 1 9123-9, 2777-, 43163-3 ####[facility] LABCLIA [id number] [address] [place] Magnesium SerPl-mCncon 11-23 Magnesium [Mass/Vol] 2.0 mg/dL Normal 1.7-2.3 [facility] Comment on above: Order Comment: Speci men Type: BLOOD SPECIMENOrdering Facility: [facility] Address: [address] [address] Performed By: #### 1 9123-9, 2777-, 38417-8 ####[facility] LABCLIA [id number] [address] STATES OF [facility] Phosphate SerPl-mCncon 11-23 Phosphate [Mass/Vol] 2.8 mg/dL Normal 2.7-4.8 [facility] Comment on above: Order Comment: Speci men Type: BLOOD SPECIMENOrdering Facility: [facility] Address: [address] [place] [address] Performed By: #### 1 9123-9, 2777, 02321-1 ####[facility] LABIA [id number] [address] [place] THERAPY NTon 11-23-2022 THERAPY NT Normal [facility] CBC panel Auto (Bld)on 11-22 Erythrocyte distribution width (RBC) [Ratio] 16.4 % High 11.5-15.0 [facility] Comment on above: Order Comment: Speci men Type: BLOOD SPECIMENOrdering Facility: [facility] Address: [address] [place] [address] Performed By: #### 5 8410-2 ####[facility] LABCLIA [id number] [address] [place] Hematocrit (Bld) [Volume fraction] 36.4 % Low 39.0-51.0 [facility] Comment on above: Order Comment: Speci men Type: BLOOD SPECIMENOrdering Facility: [facility] Address: [address] [address] Performed By: #### 5 8410-2 ####[facility] LABCLIA [id number] [place] [address] [place] Hemoglobin (Bld) [Mass/Vol] 11.6 g/dL Low 13.0-17.0 [facility] Comment on above: Order Comment: Speci men Type: BLOOD SPECIMENOrdering Facility: [facility] Address: [address] [address] Performed By: #### 5 8410-2 ####[facility] LABCLIA [id number] [place] [address] [place] MCH (RBC) [Entitic mass] 28.2 pg Normal 26.0-34.0 [facility] Comment on above: Order Comment: Speci men Type: BLOOD SPECIMENOrdering Facility: [facility] Address: [address] Performed By: #### 5 8410-2 ####[facility] LABIA [id number] [address] [place] MCHC (RBC) [Mass/Vol] 31.9 g/dL Normal 30.5-36.0 [facility] Comment on above: Order Comment: Speci men Type: BLOOD SPECIMENOrdering Facility: [facility] Address: [address] Performed By: #### 5 8410-2 ####[facility] LABIA [id number] [place] [address] [place] MCV (RBC) [Entitic vol] 88.6 fL Normal 80.0-100.0 [facility] Comment on above: Order Comment: Speci men Type: BLOOD SPECIMENOrdering Facility: [facility] Address: [address] Performed By: #### 5 8410-2 ####[facility] LABCLIA [id number] [place] [address] [place] Nucleated RBC (Bld) [#/Vol] 10*3/uL Normal <0.01 [facility] Comment on above: Order Comment: Speci men Type: BLOOD SPECIMENOrdering Facility: [facility] Address: [address] [place], [place] [address] Performed By: #### 5 8410-2 ####[facility] LABIA [id number] [place] [address] [place] Platelet mean volume (Bld) [Entitic vol] 12.5 fL Normal 9.0-12.7 [facility] Comment on above: Order Comment: Speci men Type: BLOOD SPECIMENOrdering Facility: [facility] Address: [address] [place], [place] [address] Performed By: #### 5 8410-2 ####[facility] LABIA [id number] [place] [address] [place] Platelets (Bld) [#/Vol] 115 10*3/uL Low 150-400 [facility] Comment on above: Order Comment: Speci men Type: BLOOD SPECIMENOrdering Facility: [facility] Address: [address] [place] [address] Performed By: #### 5 8410-2 ####[facility] LABIA [id number] [place] [address] [place] RBC (Bld) [#/Vol] 4.11 10*6/uL Low 4.20-6.00 [facility] Comment on above: Order Comment: Speci men Type: BLOOD SPECIMENOrdering Facility: [facility] Address: [address] Performed By: #### 5 8410-2 ####[facility] LABIA [id number] [place] [address] [place] WBC (Bld) [#/Vol] 2.29 10*3/uL Low 3.70-11.00 [facility] Comment on above: Order Comment: Speci men Type: BLOOD SPECIMENOrdering Facility: [facility] Address: [address] [place] [address] Performed By: #### 5 8410-2 ####[facility] LABCLIA [id number] [place] [address] [place] CK SerPl-cCncon 11-22-2022 CK [Catalytic activity/Vol] 27 U/L Low 51-298 [facility] Comment on above: Order Comment: Speci men Type: BLOOD SPECIMENOrdering Facility: [facility] Address: [address] [place] [address] Performed By: #### 1 9123-9, 58832-3, 2156-, 7- ####[facility] LABCLIA [id number] [place] [address] [place] Comprehensive metabolic 2000 panelon 11-22-2022 Albumin [Mass/Vol] 3.4 g/dL Low 3.9-4.9 [facility] Comment on above: Order Comment: Speci men Type: BLOOD SPECIMENOrdering Facility: [facility] Address: [address] [place] [address] Performed By: #### 1 9123-9, 64848-0, 2157-03, 2776- ####[facility] LABCLIA [id number] [place] [address] [place] ALP [Catalytic activity/Vol] 79 U/L Normal 38-113 [facility] Comment on above: Order Comment: Speci men Type: BLOOD SPECIMENOrdering Facility: [facility] Address: [address] [place] [address] Performed By: #### 1 9123-9, 62363-1, 2157-03, 7-1 ####[facility] LABCLIA [id number] [place] [address] [place] ALT [Catalytic activity/Vol] U/L Low 10-54 [facility] Comment on above: Order Comment: Speci men Type: BLOOD SPECIMENOrdering Facility: [facility] Address: [address] [place] [address] Result Comment: Resu lt rechecked. Performed By: #### 1 9123-9, 45205-3, 2157-03, 2776- ####[facility] LABCLIA [id number] [place] [address] [place] Anion gap [Moles/Vol] 10 mmol/L Normal 9-18 [facility] Comment on above: Order Comment: Speci men Type: BLOOD SPECIMENOrdering Facility: [facility] Address: [address] [place] [address] Performed By: #### 1 9123-9, 67864-9, 2157-03, 2776- ####[facility] LABIA [id number] [place] [address] [place] AST [Catalytic activity/Vol] 11 U/L Low 14-40 [facility] Comment on above: Order Comment: Speci men Type: BLOOD SPECIMENOrdering Facility: [facility] Address: [address] [place] [address] Performed By: #### 1 9123-9, 46085-6, 2157-03, 2776- ####[facility] LABIA [id number] [place] [address] [place] Bilirubin [Mass/Vol] mg/dL Low 0.2-1.3 [facility] Comment on above: Order Comment: Speci men Type: BLOOD SPECIMENOrdering Facility: [facility] Address: [address] [place] [address] Performed By: #### 1 9123-9, 65632-0, 2157-03, 2776-10 ####[facility] LABCLIA [id number] [address] [place] [address] [place] Calcium [Mass/Vol] 8.7 mg/dL Normal 8.5-10.2 [facility] Comment on above: Order Comment: Speci men Type: BLOOD SPECIMENOrdering Facility: [facility] Address: [address] [place], [place] [address] Performed By: #### 1 9123-9, 19015-0, 2157-03, 2776-10 ####[facility] LABIA [id number] [place] [address] [place] Chloride [Moles/Vol] 109 mmol/L High 97-105 [facility] Comment on above: Order Comment: Speci men Type: BLOOD SPECIMENOrdering Facility: [facility] Address: [address] [place], [place] [address] Performed By: #### 1 9123-9, 14142-9, 2157-03, 2776-10 ####[facility] LABIA [id number] [place] [address] [place] CO2 [Moles/Vol] 23 mmol/L Normal 22-30 [facility] Comment on above: Order Comment: Speci men Type: BLOOD SPECIMENOrdering Facility: [facility] Address: [address] [place], [place] [address] Performed By: #### 1 9123-9, 44126-1, 2157-03, 2776-10 ####[facility] LABIA [id number] [address] [place] [address] [place] Creatinine [Mass/Vol] 0.95 mg/dL Normal 0.73-1.22 [facility] Comment on above: Order Comment: Speci men Type: BLOOD SPECIMENOrdering Facility: [facility] Address: [address] [place], [place] [address] Performed By: #### 1 9123-9, 58676-7, 2157-03, 2776-10 ####[facility] LABCLIA [id number] [place] [address] [place] ESTIMATED GLOMERULAR FILTRATION RATE 89 mL/min/1.73m??? Normal >=60 [facility] Comment on above: Order Comment: Chaz trevizo Type: BLOOD SPECIMENOrdering Facility: [facility] Address: [address] [place] [address] Result Comment: Karina mated Glomerular Filtration Rate [...] actual GFR. Performed By: #### 1 9123-9, 98956-6, 2157-03, 2776-10 ####[facility] LABIA [id number] [place] [address] [place] Glucose [Mass/Vol] 101 mg/dL High 74-99 [facility] Comment on above: Order Comment: Chaz trevizo Type: BLOOD SPECIMENOrdering Facility: [facility] Address: [address] [place] [address] Result Comment: The [place] [employer] (ADA) provides guidance for cutoff [...] Standards of Medical Care in Diabetes 2016, [place] [employer]. Diabetes Care. 2016.39(Suppl 1). Performed By: #### 1 9123-9, 73530-8, 2157-03, 2777-1 ####[facility] LABCLIA [id number] [address] [address] [place] Potassium [Moles/Vol] 3.9 mmol/L Normal 3.7-5.1 [facility] Comment on above: Order Comment: Speci men Type: BLOOD SPECIMENOrdering Facility: [facility] Address: [address] [place] [address] Performed By: #### 1 9123-9, 80348-2, 2157-03, 2776- ####[facility] LABCLIA [id number] [place] [address] [place] Protein [Mass/Vol] 5.4 g/dL Low 6.3-8.0 [facility] Comment on above: Order Comment: Speci men Type: BLOOD SPECIMENOrdering Facility: [facility] Address: [address] [place] [address] Performed By: #### 1 9123-9, 13264-2, 2157-03, 2776-10 ####[facility] LABIA [id number] [place] [address] [place] Sodium [Moles/Vol] 142 mmol/L Normal 136-144 [facility] Comment on above: Order Comment: Speci men Type: BLOOD SPECIMENOrdering Facility: [facility] Address: [address] [place], [place] [address] Performed By: #### 1 9123-9, 43960-1, 2157-03, 2776-10 ####[facility] LABIA [id number] [place] [address] [place] Urea nitrogen [Mass/Vol] 19 mg/dL Normal 9-24 [facility] Comment on above: Order Comment: Speci men Type: BLOOD SPECIMENOrdering Facility: [facility] Address: [address] [place] [address] Performed By: #### 1 9123-9, 12494-1, 2157-03, 2776- ####[facility] LABCLIA [id number] [place] [address] [facility] Magnesium SerPl-mCncon 11-22 Magnesium [Mass/Vol] 2.2 mg/dL Normal 1.7-2.3 [facility] Comment on above: Order Comment: Speci men Type: BLOOD SPECIMENOrdering Facility: [facility] Address: [address] [place] [address] Performed By: #### 1 9123-9, 34170-7, 2157-6, 2776- ####[facility] LABCLIA [id number] [address] OF [facility] PT panel Coag (PPP)on 2022 INR Coag (PPP) [Relative time] 1.0 {INR} Normal 0.9-1.3 [facility] Comment on above: Order Comment: Speci men Type: BLOOD SPECIMENOrdering Facility: [facility] Address: [address] [place] [address] Result Comment: Bouchra min K Antagonist (VKA) Therapeutic Range: INR 2 to 3 (Target INR of 2.5)Note: For patients treated with VKA drugs, such as warfarin, the [place] [employer] 2012 Guideline recommends [...] 2.5 to 3.5 (target INR of 3).Mukesh JENKINS, et al. Chest 2012, 141:7S-47SAlma PENDLETON, et al. [facility] 2017, 70: 252-289 Performed By: #### 3 4528-0 ####[facility] LABCLIA [id number] [place] [address] [place] PT Coag (PPP) [Time] 10.1 s Normal 9.7-13.0 [facility] Comment on above: Order Comment: Speci men Type: BLOOD SPECIMENOrdering Facility: [facility] Address: [address] [place] [address] Performed By: #### 3 4528-0 ####[facility] LABCLIA [id number] [address] [place] Phosphate [facility] Phosphate [Mass/Vol] 3.5 mg/dL Normal 2.7-4.8 [facility] Comment on above: Order Comment: Speci men Type: BLOOD SPECIMENOrdering Facility: [facility] Address: [address] [place] [address] Performed By: #### 1 9123-9, 48057-2, 2157-6, 2777-1 ####[facility] LABCLIA [id number] [place] [address] [place] THERAPY NTon 11-22-2022 THERAPY NT Normal [facility] ALLIED HEALTHon 11-21-2022 ALLIED HEALTH Normal [facility] ALLIED HEALTH Normal [facility] CONSULTon 11-21-2022 CONSULT Normal [facility] CONSULT PROGon 11-21-2022 CONSULT PROG Normal [facility] NUTRITIONon 11-21-2022 NUTRITION Normal [facility] THERAPY NTon 11-21-2022 THERAPY NT Normal [facility] 25(OH)D3 SerPl-ncon 2022 25-hydroxyvitamin D3 [Mass/Vol] 15.0 ng/mL Low 31.0-80.0 [facility] Comment on above: Order Comment: Speci men Type: BLOOD SPECIMENOrdering Facility: [facility] Address: [address] [place] [address] Result Comment: Clas sification of 25 [place] Vitamin D status:Deficiency/Insufficiency: < or = 30 ng/ml.Sufficiency/Optimal Levels: 31-80 ng/mLToxicity: > 100 ng/mL.Test performed by chemiluminescent immunoassay. Performed By: #### 1 989-3 ####[facility] LABIA [id number] [place] [address] [place] CBC W Auto Differential pane l (Bld)on 11-20-2022 Basophils (Bld) [#/Vol] 10*3/uL Normal <0.11 [facility] Comment on above: Order Comment: Speci men Type: BLOOD SPECIMENOrdering Facility: [facility] Address: [address] [address] Performed By: #### 5 8410-2, 82048-9, 46144-5 ####[facility] [id number] [address] [place] Basophils/100 WBC (Bld) 0.2 % Normal [facility] Comment on above: Order Comment: Speci men Type: BLOOD SPECIMENOrdering Facility: [facility] Address: [address] [place] [address] Performed By: #### 5 8410-2, 35782-7, 17995-1 ####[facility] [id number] [place] [address] [place] Eosinophils (Bld) [#/Vol] 0.08 10*3/uL Normal <0.46 [facility] Comment on above: Order Comment: Speci men Type: BLOOD SPECIMENOrdering Facility: [facility] Address: [address] Performed By: #### 5 8410-2, 83267-5, 89103-4 ####[facility] LABIA [id number] [address] [place] Eosinophils/100 WBC (Bld) 1.8 % Normal [facility] Comment on above: Order Comment: Speci men Type: BLOOD SPECIMENOrdering Facility: [facility] Address: [address] [place] [address] Performed By: #### 5 8410-2, 07076-8, 46929-7 ####[facility] LABCLIA [id number] [place] [address] [place] Immature granulocytes (Bld) [#/Vol] 0.03 10*3/uL Normal <0.10 [facility] Comment on above: Order Comment: Speci men Type: BLOOD SPECIMENOrdering Facility: [facility] Address: [address] [place] [address] Performed By: #### 5 8410-2, 36547-2, 16295-6 ####[facility] LABIA [id number] [place] [address] [place] Immature granulocytes/100 WBC (Bld) 0.7 % Normal [facility] Comment on above: Order Comment: Speci men Type: BLOOD SPECIMENOrdering Facility: [facility] Address: [address] [place] [address] Performed By: #### 5 8410-2, 20965-9, 18533-1 ####[facility] LABIA [id number] [place] [address] [place] Lymphocytes (Bld) [#/Vol] 0.74 10*3/uL Low 1.00-4.00 [facility] Comment on above: Order Comment: Speci men Type: BLOOD SPECIMENOrdering Facility: [facility] Address: [address] [place] [address] Performed By: #### 5 8410-2, 92323-9, 80468-5 ####[facility] LABIA [id number] [address] [place] Lymphocytes/100 WBC (Bld) 16.4 % Normal [facility] Comment on above: Order Comment: Speci men Type: BLOOD SPECIMENOrdering Facility: [facility] Address: [address] [place], [place] [address] Performed By: #### 5 8410-2, 25972-5, 12353-5 ####[facility] LABIA [id number] [place] [address] [place] Monocytes (Bld) [#/Vol] 0.53 10*3/uL Normal <0.87 [facility] Comment on above: Order Comment: Speci men Type: BLOOD SPECIMENOrdering Facility: [facility] Address: [address] Performed By: #### 5 8410-2, 73430-1, 83134-5 ####[facility] [id number] [place] [address] [place] Monocytes/100 WBC (Bld) 11.8 % Normal [facility] Comment on above: Order Comment: Speci men Type: BLOOD SPECIMENOrdering Facility: [facility] Address: [address] [place], [place] [address] Performed By: #### 5 8410-2, 00824-4, 93625-0 ####[facility] [id number] [place] [address] [place] Neutrophils (Bld) [#/Vol] 3.11 10*3/uL Normal 1.45-7.50 [facility] Comment on above: Order Comment: Speci men Type: BLOOD SPECIMENOrdering Facility: [facility] Address: [address] Performed By: #### 5 8410-2, 71511-9, 14895-0 ####[facility] LABIA [id number] [address] [place] Neutrophils/100 WBC (Bld) 69.1 % Normal [facility] Comment on above: Order Comment: Speci men Type: BLOOD SPECIMENOrdering Facility: [facility] Address: [address] Performed By: #### 5 8410-2, 94929-7, 51772-5 ####[facility] LABIA [id number] [place] [address] [place] CBC panel Auto (Bld)on 11-20 Erythrocyte distribution width (RBC) [Ratio] 15.9 % High 11.5-15.0 [facility] Comment on above: Order Comment: Speci men Type: BLOOD SPECIMENOrdering Facility: [facility] Address: [address] [place] [address] Performed By: #### 5 8410-2, 19884-4, 40182-4 ####[facility] [id number] [address] [place] Hematocrit (Bld) [Volume fraction] 39.8 % Normal 39.0-51.0 [facility] Comment on above: Order Comment: Speci men Type: BLOOD SPECIMENOrdering Facility: [facility] Address: [address] [place] [address] Performed By: #### 5 8410-2, 98445-9, 28198-7 ####[facility]IA [id number] [address] [place] Hemoglobin (Bld) [Mass/Vol] 12.5 g/dL Low 13.0-17.0 [facility] Comment on above: Order Comment: Speci men Type: BLOOD SPECIMENOrdering Facility: [facility] Address: [address] [place] [address] Performed By: #### 5 8410-2, 73883-0, 09740-0 ####[facility]IA [id number] [address] [place] MCH (RBC) [Entitic mass] 27.9 pg Normal 26.0-34.0 [facility] Comment on above: Order Comment: Speci men Type: BLOOD SPECIMENOrdering Facility: [facility] Address: [address] [place], [place] [address] Performed By: #### 5 8410-2, 00493-5, 55839-4 ####[facility] [id number] [address] STATES OF [facility] MCHC (RBC) [Mass/Vol] 31.4 g/dL Normal 30.5-36.0 [facility] Comment on above: Order Comment: Speci men Type: BLOOD SPECIMENOrdering Facility: [facility] Address: [address] [place], [place] [address] Performed By: #### 5 8410-2, 77423-7, 90479-4 ####[facility] [id number] [address] [place] MCV (RBC) [Entitic vol] 88.8 fL Normal 80.0-100.0 [facility] Comment on above: Order Comment: Speci men Type: BLOOD SPECIMENOrdering Facility: [facility] Address: [address] [place], [place] [address] Performed By: #### 5 8410-2, 59826-4, 79666-7 ####[facility] [id number] [address] [place] Nucleated RBC (Bld) [#/Vol] 10*3/uL Normal <0.01 [facility] Comment on above: Order Comment: Speci men Type: BLOOD SPECIMENOrdering Facility: [facility] Address: [address] [place], [place] [id number] Performed By: #### 5 8410-2, 93578-9, 00815-3 ####[facility] [id number] [address] [place] Platelet mean volume (Bld) [Entitic vol] 11.8 fL Normal 9.0-12.7 [facility] Comment on above: Order Comment: Speci men Type: BLOOD SPECIMENOrdering Facility: [facility] Address: [address] [place], [place] [id number] Performed By: #### 5 8410-2, 62577-2, 70994-7 ####[facility]CL[facility] [id number] [place] [address] [place] Platelets (Bld) [#/Vol] 138 10*3/uL Low 150-400 [facility] Comment on above: Order Comment: Speci men Type: BLOOD SPECIMENOrdering Facility: [facility] Address: [address] [place] [address] Result Comment: No c lot detected.Results checked and verified. Performed By: #### 5 8410-2, 75181-4, 61326-8 ####[facility] LABIA [id number] [place] [address] [place] RBC (Bld) [#/Vol] 4.48 10*6/uL Normal 4.20-6.00 [facility] Comment on above: Order Comment: Speci men Type: BLOOD SPECIMENOrdering Facility: [facility] Address: [address] [place] [address] Performed By: #### 5 8410-2, 53014-6, 65233-0 ####[facility]IA [id number] [place] [address] [place] WBC (Bld) [#/Vol] 4.53 10*3/uL Normal 3.70-11.00 [facility] Comment on above: Order Comment: Speci men Type: BLOOD SPECIMENOrdering Facility: [facility] Address: [address] [place] [address] Performed By: #### 5 8410-2, 87605-2, 03437-7 ####[facility]IA [id number] [place] [address] [place] CONSULTon 11-20-2022 CONSULT Normal [facility] Calcium.ionized [Moles/Vol]o n 11-20-2022 Calcium.ionized (Bld) [Mass/Vol] 1.27 mmol/L Normal 1.08-1.30 [facility] Comment on above: Order Comment: Speci men Type: BLOOD SPECIMENOrdering Facility: [facility] Address: [address] [place], [place] [address] Performed By: #### 1 995-0 ####[facility] LABCLIA [id number] [address] Calcium.ionized adjusted to pH 7.4 (Bld) [Moles/Vol] 1.23 mmol/L Normal 1.08-1.30 [facility] Comment on above: Order Comment: Speci men Type: BLOOD SPECIMENOrdering Facility: [facility] Address: [address] [place] [address] Performed By: #### 1 995-0 ####[facility] LABCLIA [id number] [place] [address] [place] [facility] Comprehensive metabolic 2000 panelon 11-20-2022 Albumin [Mass/Vol] 4.0 g/dL Normal 3.9-4.9 [facility] Comment on above: Order Comment: Speci men Type: BLOOD SPECIMENOrdering Facility: [facility] Address: [address] [place] [address] Performed By: #### 3 3959-8, , 57283-0 ####[facility] LABIA [id number] [place] [address] [place] ALP [Catalytic activity/Vol] 90 U/L Normal 38-113 [facility] Comment on above: Order Comment: Speci men Type: BLOOD SPECIMENOrdering Facility: [facility] Address: [address] [place], [place] [address] Performed By: #### 3 3959-8, , 83969-1 ####[facility] LABCLIA [id number] [address] [place] ALT [Catalytic activity/Vol] 7 U/L Low 10-54 [facility] Comment on above: Order Comment: Speci men Type: BLOOD SPECIMENOrdering Facility: [facility] Address: [address] [place] [address] Performed By: #### 3 3959-8, , ####[facility] LABCLIA [id number] [place] [address] [place] Anion gap [Moles/Vol] 12 mmol/L Normal 9-18 [facility] Comment on above: Order Comment: Speci men Type: BLOOD SPECIMENOrdering Facility: [facility] Address: [address] [place] [address] Performed By: #### 3 3959-8, , ####[facility] LABCLIA [id number] [place] [address] [place] AST [Catalytic activity/Vol] 11 U/L Low 14-40 [facility] Comment on above: Order Comment: Speci men Type: BLOOD SPECIMENOrdering Facility: [facility] Address: [address] [place], [place] [address] Performed By: #### 3 3959-8, , ####[facility] LABCLIA [id number] [place] [address] [place] Bilirubin [Mass/Vol] 0.2 mg/dL Normal 0.2-1.3 [facility] Comment on above: Order Comment: Speci men Type: BLOOD SPECIMENOrdering Facility: [facility] Address: [address] [place], [place] [address] Performed By: #### 3 3959-8, , ####[facility] LABCLIA [id number] [place] [id number] [place] Calcium [Mass/Vol] 8.9 mg/dL Normal 8.5-10.2 [facility] Comment on above: Order Comment: Speci men Type: BLOOD SPECIMENOrdering Facility: [facility] Address: [address] Performed By: #### 3 3959-8, , ####[facility] LABCLIA [id number] [place] [address] [place] Chloride [Moles/Vol] 110 mmol/L High 97-105 [facility] Comment on above: Order Comment: Speci men Type: BLOOD SPECIMENOrdering Facility: [facility] Address: [address] [place], [place] [address] Performed By: #### 3 3959-8, , ####[facility] LABCLIA [id number] [place] [address] [place] CO2 [Moles/Vol] 20 mmol/L Low 22-30 [facility] Comment on above: Order Comment: Speci men Type: BLOOD SPECIMENOrdering Facility: [facility] Address: [address] [place], [place] [address] Performed By: #### 3 3959-8, , ####[facility] LABCLIA [id number] [place] [address] [place] Creatinine [Mass/Vol] 0.95 mg/dL Normal 0.73-1.22 [facility] Comment on above: Order Comment: Speci men Type: BLOOD SPECIMENOrdering Facility: [facility] Address: [address] Performed By: #### 3 3959-8, , ####[facility] LABCLIA [id number] [place] [address] [place] ESTIMATED GLOMERULAR FILTRATION RATE 89 mL/min/1.73m??? Normal >=60 [facility] Comment on above: Order Comment: Speci men Type: BLOOD SPECIMENOrdering Facility: [facility] Address: [address] [place] [address] Result Comment: Karina mated Glomerular Filtration Rate [...] GFR. Performed By: #### 3 3959-8, , ####[facility] LABCLIA [id number] [place] [address] [place] Glucose [Mass/Vol] 74 mg/dL Normal 74-99 [facility] Comment on above: Order Comment: Chaz trevizo Type: BLOOD SPECIMENOrdering Facility: [facility] Address: [address] [place], [place] [address] Result Comment: The [place] [employer] (ADA) provides guidance for cutoff [...] Standards of Medical Care in Diabetes 2016, [place] [employer]. Diabetes Care. 2016.39(Suppl 1). Performed By: #### 3 3959-8, , ####[facility] LABIA [id number] [place] [address] [place] Potassium [Moles/Vol] 4.2 mmol/L Normal 3.7-5.1 [facility] Comment on above: Order Comment: Chaz trevizo Type: BLOOD SPECIMENOrdering Facility: [facility] Address: [address] [phone] Performed By: #### 3 3959-8, 59291-8, 50737-9 ####[facility] LABCLIA [id number] [place] [address] [place] Protein [Mass/Vol] 6.2 g/dL Low 6.3-8.0 [facility] Comment on above: Order Comment: Speci men Type: BLOOD SPECIMENOrdering Facility: [facility] Address: [address] [place] [address] Performed By: #### 3 3959-8, 61694-6, 18501-6 ####[facility] LABIA [id number] [place] [address] [place] Sodium [Moles/Vol] 142 mmol/L Normal 136-144 [facility] Comment on above: Order Comment: Speci men Type: BLOOD SPECIMENOrdering Facility: [facility] Address: [address] [place] [address] Performed By: #### 3 3959-8, 52437-3, 50775-3 ####[facility] LABIA [id number] [place] [address] [place] Urea nitrogen [Mass/Vol] 26 mg/dL High 9-24 [facility] Comment on above: Order Comment: Speci men Type: BLOOD SPECIMENOrdering Facility: [facility] Address: [address] Performed By: #### 3 3959-8, 02224-9, 53492-4 ####[facility] LABIA [id number] [place] [address] [place] [id number] 11-20-2022 ECG01 Normal [facility] ED PROV NOTEon 11-20-2022 ED PROV NOTE Normal [facility] ED PROV NOTE Normal [facility] HISTORY PHYSICALon HISTORY PHYSICAL Normal [facility] LIPID PANEL, NONFASTINGon Cholesterol [Mass/Vol] 135 mg/dL Normal <200 [facility] Comment on above: Order Comment: Speci men Type: BLOOD SPECIMENOrdering Facility: [facility] Address: [address] [place] [address] Result Comment: <200 mg/dL, Desirable 200-239 mg/dL, Borderline high>239 mg/dL, High Performed By: #### L IPNF ####[facility] LABCLIA [id number] [place] [address] [place] HDL CHOLESTEROL, NF 35 mg/dL Low >39 [facility] Comment on above: Order Comment: Speci men Type: BLOOD SPECIMENOrdering Facility: [facility] Address: [address] [place] [address] Result Comment: 40-5 9 mg/dL, Acceptable>59 mg/dL, High: Negative risk factor for coronary heart disease<40 mg/dL, Low: Positive risk factor for coronary heart disease Performed By: #### L IPNF ####[facility] LABCLIA [id number] [address] STATES OF [facility] LDL CHOLESTEROL, NF 76 mg/dL Normal <100 [facility] Comment on above: Order Comment: Speci men Type: BLOOD SPECIMENOrdering Facility: [facility] Address: [address] [place] [address] Result Comment: <100 mg/dL, Optimal 100-129 mg/dL, Near optimal/above optimal 130-159 mg/dL, Borderline high 160-189 mg/dL, High>189 mg/dL, Very highSecondary prevention optimal LDL Cholesterol levels are recommended to be < 70 mg/dL Performed By: #### L IPNF ####[facility] LABCLIA [id number] [address] [place] LDL/HDL RATIO, NF 2.17 mg/dL Normal <2.54 [facility] Comment on above: Order Comment: Speci men Type: BLOOD SPECIMENOrdering Facility: [facility] Address: [address] [place] [address] Result Comment: Andres cunningham:1. National Cholesterol Education Program ATP III Guideline At-A-Glance Quick Desk Reference: National Heart, Lung, and Blood [place]. National Institutes of Health. 2001: NIH Publication No. 01-3305.2. An International Atherosclerosis Society position paper: global recommendations for the management of dyslipidemia: executive summary, Atherosclerosis. 2014: 232(2):410-413. Performed By: #### L IPNF ####[facility] LABCLIA [id number] [address] NON HDL CHOL, NF 100 mg/dL Normal <130 [facility] Comment on above: Order Comment: Chaz trevizo Type: BLOOD SPECIMENOrdering Facility: [facility] Address: [address] [place] [address] Result Comment: <130 mg/dL, Optimal 130-159 mg/dL, Near optimal/above optimal 160-189 mg/dL, Borderline high 190-219 mg/dL, High>219 mg/dL, Very highSecondary prevention optimal non HDL Cholesterol levels are recommended to be <100 mg/dL Performed By: #### L IPNF ####[facility] LABCLIA [id number] [address] T CHOL/HDL RATIO NF 3.86 mg/dL Normal <5.10 [facility] Comment on above: Order Comment: Chaz trevizo Type: BLOOD SPECIMENOrdering Facility: [facility] Address: [address] [place] [address] Performed By: #### L IPNF ####[facility] LABCLIA [id number] [address] OF [facility] TRIGLYCERIDES, NF 118 mg/dL Normal <150 [facility] Comment on above: Order Comment: Chaz trevizo Type: BLOOD SPECIMENOrdering Facility: [facility] Address: [address] [place] [address] Result Comment: <150 mg/dL, Normal 150-199 mg/dL, Borderline high 200-499 mg/dL, High>499 mg/dL, Very high Performed By: #### L IPNF ####[facility] LABIA [id number] [place] [address] [place] VLDL CHOLESTEROL, NF 24 mg/dL Normal <30 [facility] Comment on above: Order Comment: Speci men Type: BLOOD SPECIMENOrdering Facility: [facility] Address: [address] [place] [address] Performed By: #### L IPNF ####[facility] LABIA [id number] [place] [address] [place] Magnesium SerPl-mCncon 11-20 Magnesium [Mass/Vol] 2.1 mg/dL Normal 1.7-2.3 [facility] Comment on above: Order Comment: Speci men Type: BLOOD SPECIMENOrdering Facility: [facility] Address: [address] [place] [address] Performed By: #### 3 3959-8, 99621-7, 64710-7 ####[facility] [id number] [place] [address] [place] Prealb SerPl-mCncon 11-20-19 Prealbumin [Mass/Vol] 25 mg/dL Normal 17-36 [facility] Comment on above: Order Comment: Speci men Type: BLOOD SPECIMENOrdering Facility: [facility] Address: [address] [place] [address] Performed By: #### 1 4338-8 ####[facility] LABIA [id number] [place] [address] [place] Procalcitonin SerPl-mCncon 0 11-20-2022 Procalcitonin [Mass/Vol] 0.10 ng/mL High <0.09 [facility] Comment on above: Order Comment: Speci men Type: BLOOD SPECIMENOrdering Facility: [facility] Address: [address] [place] [address] Result Comment: For a guided interpretation of test results, please visit the Change in Procalcitonin Calculator, [email or web address]. Performed By: #### 3 3959-8, 88608-6, 34597-4 ####[facility] LABCLIA [id number] [place] [address] [place] Retics #on 11-20-2022 Reticulocytes (Bld) [#/Vol] 0.57558 10*3/uL Normal 0.018-0.10 0 [facility] Comment on above: Order Comment: Speci men Type: BLOOD SPECIMENOrdering Facility: [facility] Address: [address] [place] [address] Performed By: #### 5 8410-2, 82448-3, 05555-9 ####[facility] LABIA [id number] [address] STATES OF [facility] Reticulocytes (Bld) [#/Vol]o n 11-20-2022 Reticulocytes/100 RBC (Bld) 1.4 % Normal 0.4-2.0 [facility] Comment on above: Order Comment: Speci men Type: BLOOD SPECIMENOrdering Facility: [facility] Address: [address] [place] [address] Performed By: #### 5 8410-2, 09821-5, 89526-6 ####[facility] LABIA [id number] [address] [place] SARS-CoV-2 RNA Resp Ql KELLIE+p robeon 11-20-2022 SARS-CoV-2 (COVID-19) RNA KELLIE+probe Ql (Resp) COVID 19 RESULT: Detected The method used is RT-PCR or an equivalent NAAT method. Reference Range(the expected result in uninfected individuals): Not detected Normal [facility] Comment on above: Performed By: #### 9 4500-6 ####[facility] LABCLIA [id number] [place] [address] [place] Urinalysis complete panel (U )on 11-20-2022 Bilirubin Ql (U) Negative Normal Negative [facility] Comment on above: Order Comment: Speci men Type: URINE SPECIMENOrdering Facility: [facility] Address: [address] [place] [address] Performed By: #### 2 4356-8 ####[facility] LABCLIA [id number] [place] [address] [place] Clarity (Unsp spec) Clear Normal Clear [facility] Comment on above: Order Comment: Speci men Type: URINE SPECIMENOrdering Facility: [facility] Address: [address] [place] [address] Performed By: #### 2 4356-8 ####[facility] LABCLIA [id number] [address] STATES OF [facility] Color (U) Yellow Normal Yellow [facility] Comment on above: Order Comment: Speci men Type: URINE SPECIMENOrdering Facility: [facility] Address: [address] [place] [address] Performed By: #### 2 4356-8 ####[facility] LABCLIA [id number] [place] [address] [place] Glucose Test strip (U) [Mass/Vol] Negative Normal Trace, Negative [facility] Comment on above: Order Comment: Speci men Type: URINE SPECIMENOrdering Facility: [facility] Address: [address] [place] [address] Performed By: #### 2 4356-8 ####[facility] LABCLIA [id number] [place] [address] [place] Hemoglobin Ql (U) Negative Normal Negative, Trace [facility] Comment on above: Order Comment: Speci men Type: URINE SPECIMENOrdering Facility: [facility] Address: [address] [place], [place] [phone] Performed By: #### 2 4356-8 ####[facility] LABCLIA [id number] [place] [address] [place] Ketones Ql (U) Trace Normal Trace, Negative [facility] Comment on above: Order Comment: Speci men Type: URINE SPECIMENOrdering Facility: [facility] Address: [address] [place], [place] [address] Performed By: #### 2 4356-8 ####[facility] LABCLIA [id number] [place] [address] [place] Leukocyte esterase Test strip Ql (U) Negative Normal Negative, 25 Winter/mL [facility] Comment on above: Order Comment: Speci men Type: URINE SPECIMENOrdering Facility: [facility] Address: [address] [place] [address] Performed By: #### 2 4356-8 ####[facility] LABIA [id number] [place] [address] [place] Nitrite Ql (U) Negative Normal Negative [facility] Comment on above: Order Comment: Speci men Type: URINE SPECIMENOrdering Facility: [facility] Address: [address] [place], [place] [phone] Performed By: #### 2 4356-8 ####[facility] LABIA [id number] [place] [address] [place] pH (U) 5.0 [pH] Normal 5.0-8.0 [facility] Comment on above: Order Comment: Speci men Type: URINE SPECIMENOrdering Facility: [facility] Address: [address] [place], [place] [phone] Performed By: #### 2 4356-8 ####[facility] LABCLIA [id number] [place] [address] [place] Protein (U) [Mass/Vol] Trace Normal Trace , Negative [facility] Comment on above: Order Comment: Speci men Type: URINE SPECIMENOrdering Facility: [facility] Address: [address] [place] [address] Performed By: #### 2 4356-8 ####[facility]IA [id number] [place] [address] [place] RBC LM.HPF (Urine sed) [#/Area] 3-5 /HPF Abnormal 0-3 /HPF [facility] Comment on above: Order Comment: Speci men Type: URINE SPECIMENOrdering Facility: [facility] Address: [address] [place] [address] Performed By: #### 2 4356-8 ####[facility] [id number] [place] [address] [place] Specific gravity (U) [Rel density] 1.020 Normal 1.005-1.03 0 [facility] Comment on above: Order Comment: Speci men Type: URINE SPECIMENOrdering Facility: [facility] Address: [address] [place] [address] Performed By: #### 2 4356-8 ####[facility] [id number] [address] STATES [facility] Urobilinogen Ql (U) Negative Normal Negative [facility] Comment on above: Order Comment: Speci men Type: URINE SPECIMENOrdering Facility: [facility] Address: [address] [place], [place] [phone] Performed By: #### 2 4356-8 ####[facility] [id number] [place] [address] [place] WBC LM.HPF (Urine sed) [#/Area] 0-5 /HPF Normal 0-5 /HPF [facility] Comment on above: Order Comment: Speci men Type: URINE SPECIMENOrdering Facility: [facility] Address: [address] [place], [place] [phone] Performed By: #### 2 4356-8 ####[facility] LABCLIA [id number] [facility] [place] [address] [place] XR CHEST 1V FRONTAL PORTon 0 11-20-2022 XR CHEST 1V FRONTAL PORT Normal [facility] CBC AUTO DIFFon 11-09-2022 BASO # 0.0 103/ul Normal 0.0-0.1 [facility] Comment on above: Performed By: #### C BC #### [facility] [address] [address] [address] Bruce Nicholas Basophils/100 WBC (Bld) 0.1 % Critically low 0.2-2.0 [facility] Comment on above: Performed By: #### C BC #### [facility] [address] [place] [address] Dr. Bruce Nicholas EO # 0.0 103/ul Normal 0.0-0.7 [facility] Comment on above: Performed By: #### C BC #### [facility] [address] [place] [address] Dr. Bruce Nicholas Eosinophils/100 WBC (Bld) 0.0 % Critically low 0.9-7.0 [facility] Comment on above: Performed By: #### C BC #### [facility] [address] [place] [address] Dr. Bruce Nicholas Erythrocyte distribution width (RBC) [Ratio] 16.0 % Critically high 11.0-15.0 [facility] Comment on above: Performed By: #### C BC #### [facility] [address] [place] [address] Dr. Bruce Nicholas Hematocrit (Bld) [Volume fraction] 36.6 % Critically low 42.0-54.0 [facility] Comment on above: Performed By: #### C BC #### [facility] [address] [place] [address] Dr. Bruce Nicholas Hemoglobin (Bld) [Mass/Vol] 12.3 g/dL Critically low 14.0-18.0 [facility] Comment on above: Performed By: #### C BC #### [facility] [address] [address] [address] Bruce Nicholas IG # 0.06 10e3/ul Critically high 0.00-0.03 [facility] Comment on above: Performed By: #### C BC #### [facility] [address] [address] [address] Bruce Nicholas IG % 0.7 % Critically high 0.0-0.5 [facility] Comment on above: Performed By: #### C BC #### [facility] [address] [place] [address] Dr. Bruce Nicholas LYMPH # 1.0 103/ul Critically low 1.2-3.8 [facility] Comment on above: Performed By: #### C BC #### [facility] [address] [place] [address] Dr. Bruce Nicholas Lymphocytes/100 WBC (Bld) 11.8 % Critically low 20.5-60.0 [facility] Comment on above: Performed By: #### C BC #### [facility] [address] [place] [address] Dr. Bruce Nicholas MANUAL DIFF REQ NO Normal [facility] Comment on above: Performed By: #### C BC #### [facility] [address] [place] [address] Dr. Bruce Nicholas MCH (RBC) [Entitic mass] 27.3 pg Normal 25.9-34.0 [facility] Comment on above: Performed By: #### C BC #### [facility] [address] [address] [address] Bruce Nicholas MCHC (RBC) [Mass/Vol] 33.6 g/dL Normal 29.9-35.2 [facility] Comment on above: Performed By: #### C BC #### [facility] [address] [place] [address] Dr. Bruce Nicholas MCV (RBC) [Entitic vol] 81.2 fL Normal 80.0-94.0 [facility] Comment on above: Performed By: #### C BC #### [facility] [address] [place], [place] [address] Dr. Bruce Nicholas MONO # 0.2 103/ul Critically low 0.3-0.8 [facility] Comment on above: Performed By: #### C BC #### [facility] [address] [place] [address] Dr. Bruce Nicholas Monocytes/100 WBC (Bld) 3.0 % Normal 1.7-12.0 [facility] Comment on above: Performed By: #### C BC #### [facility] [address] [place] [address] Dr. Bruce Nicholas NEUT # 6.8 103/ul Critically high 1.4-6.5 [facility] Comment on above: Performed By: #### C BC #### [facility] [address] [place] [address] Dr. Bruce Nicholas Neutrophils/100 WBC (Bld) 84.4 % Critically high 43.0-75.0 [facility] Comment on above: Performed By: #### C BC #### [facility] [address] [place] [address] Dr. Bruce Nicholas Platelet mean volume (Bld) [Entitic vol] 11.6 fL Normal 9.5-13.5 [facility] Comment on above: Performed By: #### C BC #### [facility] [address] [place] [address] Dr. Bruce Nicholas PLT 206 103/ul Normal 150-450 [facility] Comment on above: Performed By: #### C BC #### [facility] [address] [place] [address] Dr. Bruce Nicholas RBC 4.51 106/ul Critically low 4.70-6.10 [facility] Comment on above: Performed By: #### C BC #### [facility] [address] [place] [address] Dr. Bruce Nicholas WBC 8.1 103/ul Normal 4.0-11.0 [facility] Comment on above: Performed By: #### C BC #### [facility] [address] [place] [address] Dr. Bruce Nicholas POINT OF CARE GLUCOSEon 01-2 2-2023 Glucose [Mass/Vol] 134 mg/dL Critically high 74-106 [facility] Comment on above: Performed By: #### P OCGLUC #### [facility] [address] [address] [address] Bruce Nicholas PROF CHEM 8 (BAS METB)on Anion gap [Moles/Vol] 13.3 mmol/L Normal [facility] Comment on above: Performed By: #### P OCGLUC #### [facility] [address] [address] [address] Bruce Nicholas Calcium [Mass/Vol] 9.0 mg/dL Normal 8.5-10.1 [facility] Comment on above: Performed By: #### P OCGLUC #### [facility] [address] [address] [address] Bruce Nicholas Chloride [Moles/Vol] 105 mmol/L Normal 98-107 [facility] Comment on above: Performed By: #### P OCGLUC #### [facility] [address] [address] [address] Bruce Nicholas CO2 [Moles/Vol] 24.9 mmol/L Normal 21.0-32.0 [facility] Comment on above: Performed By: #### P OCGLUC #### [facility] [address] [address] [address] Bruce Nicholas Creatinine [Mass/Vol] 0.86 mg/dL Normal 0.70-1.30 [facility] Comment on above: Performed By: #### P OCGLUC #### [facility] [address] [address] [address] Bruce Nicholas EGFR-AF MOZAMBICAN >60 Normal >=60 [facility] Comment on above: Performed By: #### P OCGLUC #### [facility] [address] [address] [address] Bruce Nicholas EGFR-NON AF MOZAMBICAN >60 Normal >=60 [facility] Comment on above: Performed By: #### P OCGLUC #### [facility] [address] [address] [address] Bruce Nicholas Glucose [Mass/Vol] 127 mg/dL Critically high 74-106 [facility] Comment on above: Performed By: #### P OCGLUC #### [facility] [address] [place] [address] Dr. Bruce Nicholas Potassium [Moles/Vol] 4.2 mmol/L Normal 3.5-5.1 [facility] Comment on above: Performed By: #### P OCGLUC #### [facility] [address] [place] [address] Dr. Bruce Nicholas Sodium [Moles/Vol] 139 mmol/L Normal 136-145 [facility] Comment on above: Performed By: #### P OCGLUC #### [facility] [address] [place] [address] Dr. Bruce Nicholas Urea nitrogen [Mass/Vol] 30.0 mg/dL Critically high 7.0-18.0 [facility] Comment on above: Performed By: #### P OCGLUC #### [facility] [address] [place] [address] Dr. Bruce Nicholas Urea nitrogen/Creatinine [Mass ratio] 34.9 mg/mg Normal [facility] Comment on above: Performed By: #### P OCGLUC #### [facility] [address] [place] [address] Dr. Bruce Nicholas CBC AUTO DIFFon 11-08-2022 BASO # 0.0 103/ul Normal 0.0-0.1 [facility] Comment on above: Performed By: #### C VDTBH #### [facility] [address] [place] [address] Dr. Bruce Nicholas Basophils/100 WBC (Bld) 0.1 % Critically low 0.2-2.0 [facility] Comment on above: Performed By: #### C VDTBH #### [facility] [address] [place] [address] Dr. Bruce Nicholas EO # 0.0 103/ul Normal 0.0-0.7 [facility] Comment on above: Performed By: #### C VDTBH #### [facility] [address] [place] [address] Dr. Bruce Nicholas Eosinophils/100 WBC (Bld) 0.0 % Critically low 0.9-7.0 [facility] Comment on above: Performed By: #### C VDTBH #### [facility] [address] [place] [address] Dr. Bruce Nicholas Erythrocyte distribution width (RBC) [Ratio] 15.8 % Critically high 11.0-15.0 [facility] Comment on above: Performed By: #### C VDTBH #### [facility] [address] [place] [address] Dr. Bruce Nicholas Hematocrit (Bld) [Volume fraction] 33.4 % Critically low 42.0-54.0 [facility] Comment on above: Performed By: #### C VDTBH #### [facility] [address] [place] [address] Dr. Bruce Nicholas Hemoglobin (Bld) [Mass/Vol] 11.5 g/dL Critically low 14.0-18.0 [facility] Comment on above: Performed By: #### C VDTBH #### [facility] [address] [place] [address] Dr. Bruce Nicholas IG # 0.05 10e3/ul Critically high 0.00-0.03 [facility] Comment on above: Performed By: #### C VDTBH #### [facility] [address] [place] [address] Dr. Bruce Nicholas IG % 0.5 % Normal 0.0-0.5 [facility] Comment on above: Performed By: #### C VDTBH #### [facility] [address] [place] [address] Dr. Bruce Nicholas LYMPH # 0.9 103/ul Critically low 1.2-3.8 [facility] Comment on above: Performed By: #### C VDTBH #### [facility] [address] [place] [address] Dr. Bruce Nicholas Lymphocytes/100 WBC (Bld) 9.6 % Critically low 20.5-60.0 [facility] Comment on above: Performed By: #### C VDTBH #### [facility] [address] [address] [address] Bruce Nicholas MANUAL DIFF REQ NO Normal [facility] Comment on above: Performed By: #### C VDTBH #### [facility] [address] [place] [address] Dr. Bruce Nicholas MCH (RBC) [Entitic mass] 27.5 pg Normal 25.9-34.0 [facility] Comment on above: Performed By: #### C VDTBH #### [facility] [address] [place] [address] Dr. Bruce Nicholas MCHC (RBC) [Mass/Vol] 34.4 g/dL Normal 29.9-35.2 [facility] Comment on above: Performed By: #### C VDTBH #### [facility] [address] [place] [address] Dr. Bruce Nicholas MCV (RBC) [Entitic vol] 79.9 fL Critically low 80.0-94.0 [facility] Comment on above: Performed By: #### C VDTBH #### [facility] [address] [place] [address] Dr. Bruce Nicholas MONO # 0.3 103/ul Normal 0.3-0.8 [facility] Comment on above: Performed By: #### C VDTBH #### [facility] [address] [place] [address] Dr. Bruce Nicholas Monocytes/100 WBC (Bld) 3.3 % Normal 1.7-12.0 [facility] Comment on above: Performed By: #### C VDTBH #### [facility] [address] [place] [address] Dr. Bruce Nicholas NEUT # 8.3 103/ul Critically high 1.4-6.5 [facility] Comment on above: Performed By: #### C VDTBH #### [facility] [address] [place] [address] Dr. Bruce Nicholas Neutrophils/100 WBC (Bld) 86.5 % Critically high 43.0-75.0 [facility] Comment on above: Performed By: #### C VDTBH #### [facility] [address] [address] [address] Bruce Nicholas Platelet mean volume (Bld) [Entitic vol] 12.1 fL Normal 9.5-13.5 [facility] Comment on above: Performed By: #### C VDTBH #### [facility] [address] [address] [address] Bruce Nicholas PLT 205 103/ul Normal 150-450 [facility] Comment on above: Performed By: #### C VDTBH #### [facility] [address] [address] [address] Bruce Nicholas RBC 4.18 106/ul Critically low 4.70-6.10 [facility] Comment on above: Performed By: #### C VDTBH #### [facility] [address] [address] [address] Bruce Nicholas WBC 9.6 103/ul Normal 4.0-11.0 [facility] Comment on above: Performed By: #### C VDTBH #### [facility] [address] [address] [address] Bruce Nicholas POINT OF CARE GLUCOSEon 10-20 Glucose [Mass/Vol] 164 mg/dL Critically high 74-106 [facility] Comment on above: Performed By: #### C BC #### [facility] [address] [address] [address] Bruce Nicholas Glucose [Mass/Vol] 126 mg/dL Critically high 74-106 [facility] Comment on above: Performed By: #### C BC #### [facility] [address] [address] [address] Bruce Nicholas Glucose [Mass/Vol] 121 mg/dL Critically high 74-106 [facility] Comment on above: Performed By: #### C VDTBH #### [facility] [address] [place] [address] Dr. Bruce Nicholas PROF CHEM 8 (BAS METB)on 01- 21-2023 Anion gap [Moles/Vol] 14.2 mmol/L Normal [facility] Comment on above: Performed By: #### P OCGLUC #### [facility] [address] [address] [address] Bruce Nicholas Calcium [Mass/Vol] 8.9 mg/dL Normal 8.5-10.1 [facility] Comment on above: Performed By: #### P OCGLUC #### [facility] [address] [address] [address] Bruce Nicholas Chloride [Moles/Vol] 107 mmol/L Normal 98-107 [facility] Comment on above: Performed By: #### P OCGLUC #### [facility] [address] [place] [address] Dr. Bruce Nicholas CO2 [Moles/Vol] 22.8 mmol/L Normal 21.0-32.0 [facility] Comment on above: Performed By: #### P OCGLUC #### [facility] [address] [address] [address] Bruce Nicholas Creatinine [Mass/Vol] 0.94 mg/dL Normal 0.70-1.30 [facility] Comment on above: Performed By: #### P OCGLUC #### [facility] [address] [address] [address] Bruce Nicholas EGFR-AF MOZAMBICAN >60 Normal >=60 [facility] Comment on above: Performed By: #### P OCGLUC #### [facility] [address] [address] [address] Bruce Nicholas EGFR-NON AF MOZAMBICAN >60 Normal >=60 [facility] Comment on above: Performed By: #### P OCGLUC #### [facility] [address] [address] [address] Bruce Nicholas Glucose [Mass/Vol] 128 mg/dL Critically high 74-106 [facility] Comment on above: Performed By: #### P OCGLUC #### [facility] [address] [place] [address] Dr. Bruce Nicholas Potassium [Moles/Vol] 4.0 mmol/L Normal 3.5-5.1 [facility] Comment on above: Performed By: #### P OCGLUC #### [facility] [address] [address] [address] Bruce Nicholas Sodium [Moles/Vol] 140 mmol/L Normal 136-145 [facility] Comment on above: Performed By: #### P OCGLUC #### [facility] [address] [address] [address] Bruce Nicholas Urea nitrogen [Mass/Vol] 33.0 mg/dL Critically high 7.0-18.0 [facility] Comment on above: Performed By: #### P OCGLUC #### [facility] [address] [address] [address] Bruce Nicholas Urea nitrogen/Creatinine [Mass ratio] 35.1 mg/mg Normal [facility] Comment on above: Performed By: #### P OCGLUC #### [facility] [address] [address] [address] Bruce Nicholas XR CHEST 2 Von 11-08-2022 XR CHEST 2 V EXAM: XR CHEST 2 V 11/07/2022 COMPARISON STUDY: AP chest 11/05/2022. HISTORY: Pneumonia. [...] deformities again identified. Electronically authenticated by: EN GONZALES Date: 2022-11-08 13:38 Normal [facility] CBC AUTO DIFFon 11-07-2022 BASO # 0.0 103/ul Normal 0.0-0.1 [facility] Comment on above: Performed By: #### C BC #### [facility] [address] [address] [address] Bruce Nicholas Basophils/100 WBC (Bld) 0.0 % Critically low 0.2-2.0 [facility] Comment on above: Performed By: #### C BC #### [facility] [address] [address] [address] Bruce Nicholas EO # 0.0 103/ul Normal 0.0-0.7 [facility] Comment on above: Performed By: #### C BC #### [facility] [address] [address] [address] Bruce Nicholas Eosinophils/100 WBC (Bld) 0.0 % Critically low 0.9-7.0 [facility] Comment on above: Performed By: #### C BC #### [facility] [address] [place] [address] Dr. Bruce Nicholas Erythrocyte distribution width (RBC) [Ratio] 16.1 % Critically high 11.0-15.0 [facility] Comment on above: Performed By: #### C BC #### [facility] [address] [address] [address] Bruce Nicholas Hematocrit (Bld) [Volume fraction] 36.3 % Critically low 42.0-54.0 [facility] Comment on above: Performed By: #### C BC #### [facility] [address] [place] [address] Dr. Bruce Nicholas Hemoglobin (Bld) [Mass/Vol] 11.5 g/dL Critically low 14.0-18.0 [facility] Comment on above: Performed By: #### C BC #### [facility] [address] [address] [address] Bruce Nicholas IG # 0.07 10e3/ul Critically high 0.00-0.03 [facility] Comment on above: Performed By: #### C BC #### [facility] [address] [place] [address] Dr. Bruce Nicholas IG % 0.6 % Critically high 0.0-0.5 [facility] Comment on above: Performed By: #### C BC #### [facility] [address] [address] [address] Bruce Nicholas LYMPH # 0.9 103/ul Critically low 1.2-3.8 [facility] Comment on above: Performed By: #### C BC #### [facility] [address] [address] [address] Bruce Nicholas Lymphocytes/100 WBC (Bld) 7.2 % Critically low 20.5-60.0 [facility] Comment on above: Performed By: #### C BC #### [facility] [address] [place] [address] Dr. Burce Nicholas MANUAL DIFF REQ NO Normal [facility] Comment on above: Performed By: #### C BC #### [facility] [address] [place] [address] Dr. Bruce Nicholas MCH (RBC) [Entitic mass] 27.7 pg Normal 25.9-34.0 [facility] Comment on above: Performed By: #### C BC #### [facility] [address] [place] [address] Dr. Bruce Nicholas MCHC (RBC) [Mass/Vol] 31.7 g/dL Normal 29.9-35.2 [facility] Comment on above: Performed By: #### C BC #### [facility] [address] [place] [address] Dr. Bruce Nicholas MCV (RBC) [Entitic vol] 87.5 fL Normal 80.0-94.0 [facility] Comment on above: Performed By: #### C BC #### [facility] [address] [place] [address] Dr. Bruce Nicholas MONO # 0.3 103/ul Normal 0.3-0.8 [facility] Comment on above: Performed By: #### C BC #### [facility] [address] [place] [address] Dr. Bruce Nicholas Monocytes/100 WBC (Bld) 2.9 % Normal 1.7-12.0 [facility] Comment on above: Performed By: #### C BC #### [facility] [address] [address] [address] Bruce Nicholas NEUT # 10.6 103/ul Critically high 1.4-6.5 [facility] Comment on above: Performed By: #### C BC #### [facility] [address] [address] [address] Bruce Nicholas Neutrophils/100 WBC (Bld) 89.3 % Critically high 43.0-75.0 [facility] Comment on above: Performed By: #### C BC #### [facility] [address] [place] [address] Dr. Bruce Nicholas Platelet mean volume (Bld) [Entitic vol] 12.4 fL Normal 9.5-13.5 [facility] Comment on above: Performed By: #### C BC #### [facility] [address] [place] [address] Dr. Bruce Nicholas PLT 195 103/ul Normal 150-450 [facility] Comment on above: Performed By: #### C BC #### [facility] [address] [place] [address] Dr. Bruce Nicholas RBC 4.15 106/ul Critically low 4.70-6.10 [facility] Comment on above: Performed By: #### C BC #### [facility] [address] [place] [address] Dr. Bruce Nicholas WBC 11.9 103/ul Critically high 4.0-11.0 [facility] Comment on above: Performed By: #### C BC #### [facility] [address] [place] [address] Dr. Bruce Nicholas POINT OF CARE GLUCOSEon 2 0-2022 Glucose [Mass/Vol] 122 mg/dL Critically high 74-106 [facility] Comment on above: Performed By: #### P OCGLUC #### [facility] [address] [place] [address] Dr. Bruce Nicholas Glucose [Mass/Vol] 139 mg/dL Critically high 74-106 [facility] Comment on above: Performed By: #### C BC #### [facility] [address] [place] [address] Dr. Bruce Nicholas Glucose [Mass/Vol] 145 mg/dL Critically high 74-106 [facility] Comment on above: Performed By: #### P OCGLUC #### [facility] [address] [address] [address] Bruce Nicholas PROF CHEM 8 (BAS METB)on Anion gap [Moles/Vol] 14.8 mmol/L Normal [facility] Comment on above: Performed By: #### C BC #### [facility] [address] [place] [address] Dr. Bruce Nicholas Calcium [Mass/Vol] 9.0 mg/dL Normal 8.5-10.1 [facility] Comment on above: Performed By: #### C BC #### [facility] [address] [place] [address] Dr. Bruce Nicholas Chloride [Moles/Vol] 107 mmol/L Normal 98-107 [facility] Comment on above: Performed By: #### C BC #### [facility] [address] [place] [address] Dr. Bruce Nicholas CO2 [Moles/Vol] 21.3 mmol/L Normal 21.0-32.0 [facility] Comment on above: Performed By: #### C BC #### [facility] [address] [place] [address] Dr. Bruce Nicholas Creatinine [Mass/Vol] 1.11 mg/dL Normal 0.70-1.30 [facility] Comment on above: Performed By: #### C BC #### [facility] [address] [place] [address] Dr. Bruce Nicholas EGFR-AF MOZAMBICAN >60 Normal >=60 [facility] Comment on above: Performed By: #### C BC #### [facility] [address] [place] [address] Dr. Bruce Nicholas EGFR-NON AF MOZAMBICAN >60 Normal >=60 [facility] Comment on above: Performed By: #### C BC #### [facility] [address] [place] [address] Dr. Bruce Nicholas Glucose [Mass/Vol] 158 mg/dL Critically high 74-106 [facility] Comment on above: Performed By: #### C BC #### [facility] [address] [place] [address] Dr. Bruce Nicholas Potassium [Moles/Vol] 4.1 mmol/L Normal 3.5-5.1 [facility] Comment on above: Performed By: #### C BC #### [facility] [address] [place] [address] Dr. Bruce Nicholas Sodium [Moles/Vol] 139 mmol/L Normal 136-145 [facility] Comment on above: Performed By: #### C BC #### [facility] [address] [place] [address] Dr. Bruce Nicholas Urea nitrogen [Mass/Vol] 28.0 mg/dL Critically high 7.0-18.0 [facility] Comment on above: Performed By: #### C BC #### [facility] [address] [place] [address] Dr. Bruce Nicholas Urea nitrogen/Creatinine [Mass ratio] 25.2 mg/mg Normal [facility] Comment on above: Performed By: #### C BC #### [facility] [address] [place] [address] Dr. Bruce Nicholas CBC AUTO DIFFon 11-06-2022 BASO # 0.0 103/ul Normal 0.0-0.1 [facility] Comment on above: Performed By: #### C BC #### [facility] [address] [place] [address] Dr. Bruce Nicholas Basophils/100 WBC (Bld) 0.0 % Critically low 0.2-2.0 [facility] Comment on above: Performed By: #### C BC #### [facility] [address] [place] [address] Dr. Bruce Nicholas EO # 0.0 103/ul Normal 0.0-0.7 [facility] Comment on above: Performed By: #### C BC #### [facility] [address] [place] [address] Dr. Bruce Nicholas Eosinophils/100 WBC (Bld) 0.0 % Critically low 0.9-7.0 [facility] Comment on above: Performed By: #### C BC #### [facility] [address] [place] [address] Dr. Bruce Nicholas Erythrocyte distribution width (RBC) [Ratio] 15.8 % Critically high 11.0-15.0 [facility] Comment on above: Performed By: #### C BC #### [facility] [address] [place] [address] Dr. Bruce Nicholas Hematocrit (Bld) [Volume fraction] 37.1 % Critically low 42.0-54.0 [facility] Comment on above: Performed By: #### C BC #### [facility] [address] [place] [address] Dr. Bruce Nicholas Hemoglobin (Bld) [Mass/Vol] 11.7 g/dL Critically low 14.0-18.0 [facility] Comment on above: Performed By: #### C BC #### [facility] [address] [place] [address] Dr. Bruce Nicholas IG # 0.03 10e3/ul Normal 0.00-0.03 [facility] Comment on above: Performed By: #### C BC #### [facility] [address] [place] [address] Dr. Bruce Nicholas IG % 0.4 % Normal 0.0-0.5 [facility] Comment on above: Performed By: #### C BC #### [facility] [address] [place] [address] Dr. Bruce Nicholas LYMPH # 0.7 103/ul Critically low 1.2-3.8 [facility] Comment on above: Performed By: #### C BC #### [facility] [address] [place] [address] Dr. Bruce Nicholas Lymphocytes/100 WBC (Bld) 9.9 % Critically low 20.5-60.0 [facility] Comment on above: Performed By: #### C BC #### [facility] [address] [place] [address] Dr. Bruce Nicholas MANUAL DIFF REQ NO Normal [facility] Comment on above: Performed By: #### C BC #### [facility] [address] [place] [address] Dr. Bruce Nicholas MCH (RBC) [Entitic mass] 27.3 pg Normal 25.9-34.0 [facility] Comment on above: Performed By: #### C BC #### [facility] [address] [place] [address] Dr. Bruce Nicholas MCHC (RBC) [Mass/Vol] 31.5 g/dL Normal 29.9-35.2 [facility] Comment on above: Performed By: #### C BC #### [facility] [address] [place] [address] Dr. Bruce Nicholas MCV (RBC) [Entitic vol] 86.5 fL Normal 80.0-94.0 [facility] Comment on above: Performed By: #### C BC #### [facility] [address] [place] [address] Dr. Bruce Nicholas MONO # 0.1 103/ul Critically low 0.3-0.8 [facility] Comment on above: Performed By: #### C BC #### [facility] [address] [place] [address] Dr. Bruce Nicholas Monocytes/100 WBC (Bld) 1.9 % Normal 1.7-12.0 [facility] Comment on above: Performed By: #### C BC #### [facility] [address] [place] [address] Dr. Bruce Nicholas NEUT # 6.0 103/ul Normal 1.4-6.5 [facility] Comment on above: Performed By: #### C BC #### [facility] [address] [place] [address] Dr. Bruce Nicholas Neutrophils/100 WBC (Bld) 87.8 % Critically high 43.0-75.0 [facility] Comment on above: Performed By: #### C BC #### [facility] [address] [place] [address] Dr. Bruce Nicholas Platelet mean volume (Bld) [Entitic vol] 12.4 fL Normal 9.5-13.5 [facility] Comment on above: Performed By: #### C BC #### [facility] [address] [address] [address] Bruce Nicholas PLT 186 103/ul Normal 150-450 [facility] Comment on above: Performed By: #### C BC #### [facility] [address] [address] [address] Bruce Nicholas RBC 4.29 106/ul Critically low 4.70-6.10 [facility] Comment on above: Performed By: #### C BC #### [facility] [address] [address] [address] Bruce Nicholas WBC 6.9 103/ul Normal 4.0-11.0 [facility] Comment on above: Performed By: #### C BC #### [facility] [address] [address] [address] Bruce Nicholas POINT OF CARE GLUCOSEon 10-19 Glucose [Mass/Vol] 128 mg/dL Critically high 74-106 [facility] Comment on above: Performed By: #### P OCGLUC #### [facility] [address] [place] [address] Dr. Bruce Nicholas Glucose [Mass/Vol] 129 mg/dL Critically high 74-106 [facility] Comment on above: Performed By: #### P OCGLUC #### [facility] [address] [address] [address] Bruce Nicholas Glucose [Mass/Vol] 139 mg/dL Critically high 74-106 [facility] Comment on above: Performed By: #### P OCGLUC #### [facility] [address] [address] [address] Bruce Nicholas PROF CHEM 8 (BAS METB)on Anion gap [Moles/Vol] 17.3 mmol/L Normal [facility] Comment on above: Performed By: #### C BC #### [facility] [address] [place] [address] Dr. Bruce Nicholas Calcium [Mass/Vol] 9.0 mg/dL Normal 8.5-10.1 [facility] Comment on above: Performed By: #### C BC #### [facility] [address] [place] [address] Dr. Bruce Nicholas Chloride [Moles/Vol] 107 mmol/L Normal 98-107 [facility] Comment on above: Performed By: #### C BC #### [facility] [address] [place] [address] Dr. Bruce Nicholas CO2 [Moles/Vol] 20.4 mmol/L Critically low 21.0-32.0 [facility] Comment on above: Performed By: #### C BC #### [facility] [address] [place] [address] Dr. Bruce Nicholas Creatinine [Mass/Vol] 1.12 mg/dL Normal 0.70-1.30 [facility] Comment on above: Performed By: #### C BC #### [facility] [address] [place] [address] Dr. Bruce Nicholas EGFR-AF MOZAMBICAN >60 Normal >=60 [facility] Comment on above: Performed By: #### C BC #### [facility] [address] [place] [address] Dr. Bruce Nicholas EGFR-NON AF MOZAMBICAN >60 Normal >=60 [facility] Comment on above: Performed By: #### C BC #### [facility] [address] [place] [address] Dr. Bruce Nicholas Glucose [Mass/Vol] 184 mg/dL Critically high 74-106 [facility] Comment on above: Performed By: #### C BC #### [facility] [address] [place] [address] Dr. Bruce Nicholas Potassium [Moles/Vol] 3.7 mmol/L Normal 3.5-5.1 [facility] Comment on above: Performed By: #### C BC #### [facility] [address] [place] [address] Dr. Bruce Nicholas Sodium [Moles/Vol] 141 mmol/L Normal 136-145 [facility] Comment on above: Performed By: #### C BC #### [facility] [address] [place] [address] Dr. Bruce Nicholas Urea nitrogen [Mass/Vol] 25.0 mg/dL Critically high 7.0-18.0 [facility] Comment on above: Performed By: #### C BC #### [facility] [address] [place] [address] Dr. Bruce Nicholas Urea nitrogen/Creatinine [Mass ratio] 22.3 mg/mg Normal [facility] Comment on above: Performed By: #### C BC #### [facility] [address] [place] [address] Dr. Bruce Nicholas BNPon 11-05-2022 Natriuretic peptide B (Bld) [Mass/Vol] 131.0 pg/mL Normal <=900.0 [facility] Comment on above: Performed By: #### C BC #### [facility] [address] [place] [address] Dr. Bruce Nicholas CARDIAC EAMON ADMITon 023 CK [Catalytic activity/Vol] 44 U/L Normal 39-308 [facility] Comment on above: Performed By: #### C BC #### [facility] [address] [place] [address] Dr. Bruce Nicholas CK.MB [Mass/Vol] 1.08 ng/mL Normal <=3.60 [facility] Comment on above: Performed By: #### C BC #### [facility] [address] [place] [address] Dr. Bruce Nicholas HSTROP 5.2 pg/mL Normal 4.0-76.1 [facility] Comment on above: Result Comment: CUT- OFF POINTS HAVE BEEN ESTABLISHED BASED ON THE FOURTH UNIVERSAL DEFINITIONS OF MYOCARDIAL INFARCTION. THE UPPER REFERENCE LIMIT (URL) OF TROPONIN, DEFINED THE 99TH PERCENTILE OF cTnI DISTRIBUTION IN A REFERENCE POPULATION, HAS BEEN CONFIRMED THE DECISION THRESHOLD FOR [place] DIAGNOSIS. Performed By: #### C BC #### [facility] [address] [place] [address] Dr. Bruce Nicholas DAVID 57 ng/mL Normal 16-96 [facility] Comment on above: Performed By: #### C BC #### [facility] [address] [address] [address] Bruce Nicholas CBC AUTO DIFFon 11-05-2022 BASO # 0.0 103/ul Normal 0.0-0.1 [facility] Comment on above: Performed By: #### C BC #### [facility] [address] [place] [address] Dr. Bruce Nicholas Basophils/100 WBC (Bld) 0.6 % Normal 0.2-2.0 [facility] Comment on above: Performed By: #### C BC #### [facility] [address] [place] [address] Dr. Bruce Nicholas EO # 0.1 103/ul Normal 0.0-0.7 [facility] Comment on above: Performed By: #### C BC #### [facility] [address] [place] [address] Dr. Bruce Nicholas Eosinophils/100 WBC (Bld) 1.3 % Normal 0.9-7.0 [facility] Comment on above: Performed By: #### C BC #### [facility] [address] [place] [address] Dr. Bruce Nicholas Erythrocyte distribution width (RBC) [Ratio] 15.4 % Critically high 11.0-15.0 [facility] Comment on above: Performed By: #### C BC #### [facility] [address] [place] [address] Dr. Bruce Nicholas Hematocrit (Bld) [Volume fraction] 44.9 % Normal 42.0-54.0 [facility] Comment on above: Performed By: #### C BC #### [facility] [address] [place] [address] Dr. Bruce Nicholas Hemoglobin (Bld) [Mass/Vol] 14.0 g/dL Normal 14.0-18.0 [facility] Comment on above: Performed By: #### C BC #### [facility] [address] [place] [address] Dr. Bruce Nicholas IG # 0.02 10e3/ul Normal 0.00-0.03 [facility] Comment on above: Performed By: #### C BC #### [facility] [address] [place] [address] Dr. Bruce Nicholas IG % 0.3 % Normal 0.0-0.5 [facility] Comment on above: Performed By: #### C BC #### [facility] [address] [place] [address] Dr. Bruce Nicholas LYMPH # 2.3 103/ul Normal 1.2-3.8 [facility] Comment on above: Performed By: #### C BC #### [facility] [address] [place] [address] Dr. Bruce Nicholas Lymphocytes/100 WBC (Bld) 31.7 % Normal 20.5-60.0 [facility] Comment on above: Performed By: #### C BC #### [facility] [address] [place] [address] Dr. Bruce Nicholas MANUAL DIFF REQ NO Normal [facility] Comment on above: Performed By: #### C BC #### [facility] [address] [place] [address] Dr. Bruce Nicholas MCH (RBC) [Entitic mass] 27.3 pg Normal 25.9-34.0 [facility] Comment on above: Performed By: #### C BC #### [facility] [address] [place] [address] Dr. Bruce Nicholas MCHC (RBC) [Mass/Vol] 31.2 g/dL Normal 29.9-35.2 [facility] Comment on above: Performed By: #### C BC #### [facility] [address] [place] [address] Dr. Bruce Nicholas MCV (RBC) [Entitic vol] 87.5 fL Normal 80.0-94.0 [facility] Comment on above: Performed By: #### C BC #### [facility] [address] [place] [address] Dr. Bruce Nicholas MONO # 0.5 103/ul Normal 0.3-0.8 [facility] Comment on above: Performed By: #### C BC #### [facility] [address] [place] [address] Dr. Bruce Nicholas Monocytes/100 WBC (Bld) 7.6 % Normal 1.7-12.0 [facility] Comment on above: Performed By: #### C BC #### [facility] [address] [place] [address] Dr. Bruce Nicholas NEUT # 4.2 103/ul Normal 1.4-6.5 [facility] Comment on above: Performed By: #### C BC #### [facility] [address] [place] [address] Dr. Bruce Nicholas Neutrophils/100 WBC (Bld) 58.5 % Normal 43.0-75.0 [facility] Comment on above: Performed By: #### C BC #### [facility] [address] [place] [address] Dr. Bruce Nicholas Platelet mean volume (Bld) [Entitic vol] 12.6 fL Normal 9.5-13.5 [facility] Comment on above: Performed By: #### C BC #### [facility] [address] [place] [address] Dr. Bruce Nicholas PLT 211 103/ul Normal 150-450 [facility] Comment on above: Performed By: #### C BC #### [facility] [address] [place] [address] Dr. Bruce Nicholas RBC 5.13 106/ul Normal 4.70-6.10 [facility] Comment on above: Performed By: #### C BC #### [facility] [address] [place] [address] Dr. Bruce Nicholas WBC 7.1 103/ul Normal 4.0-11.0 [facility] Comment on above: Performed By: #### C BC #### [facility] [address] [place] [address] Dr. Bruce Nicholas CULTURE BLOODon 11-05-2022 Microscopic examination of blood, culture Culture Observations: NO GROWTH AT 5 DAYS. Normal [facility] Comment on above: Performed By: #### C VDTB #### [facility] [address] [place] [address] Dr. Bruce Nicholas Performed By: #### B [id number] #### [facility] [address] [place] [address] Dr. Bruce Nicholas Covid-19 PCR ([facility])on 10-19 SARS-CoV-2 (COVID-19) RNA KELLIE+probe Ql (Unsp spec) Not detected Normal NOT DETECTED [facility] Comment on above: Result Comment: When [...] for this test is supported by the [place] of Health and Human Service's declaration that [...] used). Performed By: #### C VDTBH #### [facility] [address] [place] [address] Dr. Bruce Nicholas INFLUENZA A AND B AGon 11-05 [facility] SEE BELOW Normal [facility] Comment on above: Result Comment: Nega tive for Flu A protein angiten. Infection due to Flu A cannot be ruled out. Flu A angiten in the sample may be below the detection limit of the test. Performed By: #### C BC #### [facility] [address] [place] [address] Dr. Bruce [facility] Normal [facility] Comment on above: Result Comment: Nega tive for Flu B protein antigen. Infection due to Flu B cannot be ruled out. Flu B antigen in the sample may be below the detection limit of the test. Performed By: #### C BC #### [facility] [address] [place] [address] Dr. Bruce Nicholas INFLUENZA A AG Negative Normal NEGATIVE SEE COMMENT [facility] Comment on above: Performed By: #### C BC #### [facility] [address] [place] [address] Dr. Bruce Nicholas INFLUENZA B AG Negative Normal NEGATIVE SEE COMMENT [facility] Comment on above: Performed By: #### C BC #### [facility] [address] [place] [address] Dr. Bruce Nicholas POINT OF CARE GLUCOSEon 10-19 Glucose [Mass/Vol] 110 mg/dL Critically high 74-106 [facility] Comment on above: Performed By: #### C BC #### [facility] [address] [place] [address] Dr. Bruce Nicholas Glucose [Mass/Vol] 129 mg/dL Critically high -106 [facility] Comment on above: Performed By: #### C VDTBH #### [facility] [address] [place] [address] Dr. Bruce Nicholas Glucose [Mass/Vol] 190 mg/dL Critically high -106 [facility] Comment on above: Performed By: #### P OCGLUC #### [facility] [address] [place] [address] Dr. Bruce Nicholas PROF CHEM 8 (BAS METB)on Anion gap [Moles/Vol] 16.0 mmol/L Normal [facility] Comment on above: Performed By: #### C BC #### [facility] [address] [place] [address] Dr. Bruce Nicholas Calcium [Mass/Vol] 9.4 mg/dL Normal 8.5-10.1 [facility] Comment on above: Performed By: #### C BC #### [facility] [address] [place] [address] Dr. Bruce Nicohlas Chloride [Moles/Vol] 106 mmol/L Normal 98-107 [facility] Comment on above: Performed By: #### C BC #### [facility] [address] [place] [address] Dr. Bruce Nicholas CO2 [Moles/Vol] 25.2 mmol/L Normal 21.0-32.0 [facility] Comment on above: Performed By: #### C BC #### [facility] [address] [address] [address] Bruce Nicholas Creatinine [Mass/Vol] 1.09 mg/dL Normal 0.70-1.30 [facility] Comment on above: Performed By: #### C BC #### [facility] [address] [address] [address] Bruce Nicholas EGFR-AF MOZAMBICAN >60 Normal >=60 [facility] Comment on above: Performed By: #### C BC #### [facility] [address] [address] [address] Bruce Nicholas EGFR-NON AF MOZAMBICAN >60 Normal >=60 [facility] Comment on above: Performed By: #### C BC #### [facility] [address] [address] [address] Bruce Nicholas Glucose [Mass/Vol] 107 mg/dL Critically high 74-106 [facility] Comment on above: Performed By: #### C BC #### [facility] [address] [address] [address] Bruce Nicholas Potassium [Moles/Vol] 3.2 mmol/L Critically low 3.5-5.1 [facility] Comment on above: Performed By: #### C BC #### [facility] [address] [address] [address] Bruce Nicholas Sodium [Moles/Vol] 144 mmol/L Normal 136-145 [facility] Comment on above: Performed By: #### C BC #### [facility] [address] [address] [address] Bruce Nicholas Urea nitrogen [Mass/Vol] 20.0 mg/dL Critically high 7.0-18.0 [facility] Comment on above: Performed By: #### C BC #### [facility] [address] [address] [address] Bruce Nicholas Urea nitrogen/Creatinine [Mass ratio] 18.3 mg/mg Normal [facility] Comment on above: Performed By: #### C #### [facility] [address] [address] [address] Bruce Nicholas XR CHEST 1 Von [...] by: LIZETH MCDONOUGH Date: 2022-11-05 08:05 Normal [facility] CT LSPINE WO CONon 2 CT LSPINE [...] by: DON MURRAY Date: 2022-10-09 13:29 Normal [facility] POINT OF CARE GLUCOSEon 12-2 Glucose [Mass/Vol] 69 mg/dL Critically low 74-106 [facility] Comment on above: Performed By: #### C BC #### [facility] [address] [address] [address] Bruce Nicholas Glucose [Mass/Vol] 81 mg/dL Normal 74-106 [facility] Comment on above: Performed By: #### C VDTBH #### [facility] [address] [address] [address] Bruce Nicholas XR MYELOGRAM LSPINE EXPon [...] by: DON MURRAY Date: 2022-10-08 11:11 Normal [facility] COVID-19on 02-18-2022 SARS-CoV-2 (COVID-19) RNA KELLIE+probe Ql (Unsp spec) Not detected Normal NOT DETECTED [facility] Comment on above: Result Comment: Rapi d [...] authorized laboratories. Fact sheet for Healthcare Providers: https://www.fda.gov/media/729838/download Fact sheet for Patients: https://www.fda.gov/media/120663/download METHODOLOGY: Isothermal Nucleic Acid Amplification Performed By: #### C OVPC #### [employer] [address] [place] [address] COVID-19, Rapidon 02-18-2022 SARS-CoV-2 (COVID-19) RNA KELLIE+probe Ql (Unsp spec) Not detected NOT DETECTED [facility] Comment on above: Rapid NAAT: Negative results [...] authorized laboratories. Fact sheet for Healthcare Providers: https://www.fda.gov/media/816136/download Fact sheet for Patients: https://www.fda.gov/media/698845/download METHODOLOGY: Isothermal Nucleic Acid Amplification Performed at [facility] [address] [place] [id number] [place] [address] GLUCOSE POCon 02-18-2022 Glucose [Mass/Vol] 107 mg/dL Normal 70-108 [facility] Comment on above: Performed By: #### P OCGL #### [employer] [address] [place] [address] Glucose [Mass/Vol] 100 mg/dL Normal 70-108 [facility] Comment on above: Performed By: #### P OCGL #### [address] [address] POCT glucoseon 02-18-2022 Glucose [Mass/Vol] 107 mg/dL 70 - 108 mg/dl [facility] Comment on above: Performed at [facility] [address] [place] [address] Glucose [Mass/Vol] 100 mg/dL 70 - 108 mg/dl [facility] Comment on above: Performed at [facility] [address] [place] [address] [facility] GLUCOSE POCon 02-17-2022 Glucose [Mass/Vol] 99 mg/dL Normal 70-108 [facility] Comment on above: Performed By: #### P OCGL #### [address] [address] Glucose [Mass/Vol] 88 mg/dL Normal 70-108 [facility] Comment on above: Performed By: #### P OCGL #### [address] [address] Glucose [Mass/Vol] 90 mg/dL Normal 70-108 [facility] Comment on above: Performed By: #### C BCND, PT, APTT, BMP, ANION, EGFR1 #### [address] [address] POCT glucoseon 02-17-2022 Glucose [Mass/Vol] 99 mg/dL 70 - 108 mg/dl [facility] Comment on above: Performed at [facility] [address] [place] [address] Glucose [Mass/Vol] 88 mg/dL 70 - 108 mg/dl [facility] Comment on above: Performed at [facility] [address] [place] [address] Glucose [Mass/Vol] 90 mg/dL 70 - 108 mg/dl [facility] Comment on above: Performed at [facility] [address] [place] [address] [facility] GLUCOSE POCon 02-16-2022 Glucose [Mass/Vol] 85 mg/dL Normal 70-108 [facility] Comment on above: Performed By: #### C BCND, PT, APTT, BMP, ANION, EGFR1 #### [address] [address] Glucose [Mass/Vol] 95 mg/dL Normal 70-108 [facility] Comment on above: Performed By: #### C BCND, PT, APTT, BMP, ANION, EGFR1 #### [facility] [address] [place] [address] Glucose [Mass/Vol] 89 mg/dL Normal 70-108 [facility] Comment on above: Performed By: #### C BCND, PT, APTT, BMP, ANION, EGFR1 #### [facility] [address] [place] [address] Glucose [Mass/Vol] 121 mg/dL High 70-108 [facility] Comment on above: Performed By: #### P OCGL #### [facility] [address] [place] [address] Glucose [Mass/Vol] 116 mg/dL High 70-108 [facility] Comment on above: Performed By: #### P OCGL ####[facility] [employer] [id number] [place] [address] No Panel Informationon 02-16 [facility] POCT Glucoseon 02-16-2022 Glucose [Mass/Vol] 121 mg/dL High 70 - 108 mg/dl [facility] Comment on above: Performed at [facility] [address] [place] [address] Interpretation and review of laboratory results Abnormal [facility] POCT glucoseon 02-16-2022 Glucose [Mass/Vol] 85 mg/dL 70 - 108 mg/dl [facility] Comment on above: Performed at [facility] [address] [place] [address] Glucose [Mass/Vol] 95 mg/dL 70 - 108 mg/dl [facility] Comment on above: Performed at [facility] [address] [place] [address] Glucose [Mass/Vol] 89 mg/dL 70 - 108 mg/dl [facility] Comment on above: Performed at [facility] [address] [place] [address] Glucose [Mass/Vol] 116 mg/dL High 70 - 108 mg/dl [facility] Comment on above: Performed at [facility] [address] [place] [address] Interpretation and review of laboratory results Abnormal [facility] ANION GAPon 02-15-2022 Anion gap [Moles/Vol] 8.0 mmol/L Normal 8.0-16.0 [facility] Comment on above: Result Comment: ANIO N GAP = Sodium -(Chloride + CO2) Performed By: #### C BCND, BMP, ANION, EGFR1 ####[facility] [id number] [place] [address] Anion Gapon 02-15-2022 Anion gap [Moles/Vol] 8.0 mmol/L 8.0 - 16.0 meq/L [facility] Comment on above: ANION GAP = Sodium - (Chloride + CO2) Performed at [facility] [address] [place] [address] BASIC METABOL PANELon 2021 Calcium [Mass/Vol] 8.1 mg/dL Low 8.5-10.5 [facility] Comment on above: Performed By: #### P OCGL #### [facility] [address] [place] [address] Chloride [Moles/Vol] 105 mmol/L Normal 98-111 [facility] Comment on above: Performed By: #### P OCGL #### [facility] [address] [place] [address] CO2 [Moles/Vol] 25 mmol/L Normal 23-[address] [facility] Comment on above: Performed By: #### P OCGL #### [facility] [address] [place] [address] Creatinine [Mass/Vol] 1.0 mg/dL Normal 0.4-1.2 [facility] Comment on above: Performed By: #### P OCGL #### [facility] [address] [place] [address] Glucose [Mass/Vol] 101 mg/dL Normal 70-108 [facility] Comment on above: Performed By: #### P OCGL #### [facility] [address] [place] [address] Potassium [Moles/Vol] 3.9 mmol/L Normal 3.5-5.2 [facility] Comment on above: Performed By: #### P OCGL #### [facility] [address] [place] [address] Sodium [Moles/Vol] 138 mmol/L Normal 135-145 [facility] Comment on above: Performed By: #### P OCGL #### [facility] [address] [place] [address] Urea nitrogen [Mass/Vol] 19 mg/dL Normal 7-22 [facility] Comment on above: Performed By: #### P OCGL #### [facility] [address] [place] [address] Basic Metabolic Panelon 01-19 Calcium [Mass/Vol] 8.1 mg/dL Low 8.5 - 10. 5 mg/dL [facility] Comment on above: Performed at [facility] [address] [place] [address] Chloride [Moles/Vol] 105 mmol/L 98 - 11 1 meq/L [facility] CO2 [Moles/Vol] 25 mmol/L 23 - 33 meq/L [facility] Creatinine [Mass/Vol] 1 mg/dL 0.4 - 1.2 mg/dL [facility] Potassium [Moles/Vol] 3.9 mmol/L 3.5 - 5.2 meq/L [facility] Sodium [Moles/Vol] 138 mmol/L 135 - 145 meq/L [facility] Urea nitrogen (BldV) [Mass/Vol] 19 mg/dL 7 - 22 mg/dL [facility] Erythrocyte distribution width (RBC) [Ratio] 13.3 % 11.5 - 14.5 % [facility] Erythrocyte distribution width (RBC) [Ratio] 46.9 fL High 35.0 - 45.0 fL [facility] Hematocrit (Bld) [Volume fraction] 30.1 % Low 42.0 - 52.0 % [facility] Hemoglobin.gastrointes tinal spec 1 Ql (Stl) 9.5 Low [facility] th MCH (RBC) [Entitic mass] 30.4 pg 26.0 - 33.0 pg [facility] MCHC (RBC) [Mass/Vol] 31.6 g/dL Low [facility] MCV (RBC) [Entitic vol] 96.2 fL High 80.0 - 94.0 fL [facility] Platelet mean volume (Bld) [Entitic vol] 11.7 fL 9.4 - 12.4 fL [facility] Comment on above: Performed at [facility] [address] [place] [address] Platelets (Bld) [#/Vol] 159 10*3/uL [facility] RBC (Bld) [#/Vol] 3.13 10*6/uL [facility] WBC (Bld) [#/Vol] 4.3 10*3/uL [facility] CBC NO DIFFERENTIALon 2021 Erythrocyte distribution width (RBC) [Ratio] 13.3 % Normal 11.5-14.5 [facility] Comment on above: Performed By: #### P OCGL #### [address] [address] Hematocrit (Bld) [Volume fraction] 30.1 % Low 42.0-52.0 [facility] Comment on above: Performed By: #### P OCGL #### [address] [address] Hemoglobin (Bld) [Mass/Vol] 9.5 g/dL Low 14.0-18.0 [facility] Comment on above: Performed By: #### P OCGL #### [address] [address] MCH (RBC) [Entitic mass] 30.4 pg Normal 26.0-33.0 [facility] Comment on above: Performed By: #### P OCGL #### [facility] [address] [place] [address] MCHC (RBC) [Mass/Vol] 31.6 g/dL Low 32.2-35.5 [facility] Comment on above: Performed By: #### P OCGL #### [facility] [address] [address] MCV (RBC) [Entitic vol] 96.2 fL High 80.0-94.0 [facility] Comment on above: Performed By: #### P OCGL #### [facility] [address] [place] [address] PLATELET 159 thou/mm3 Normal 130-400 [facility] Comment on above: Performed By: #### P OCGL #### [facility] [address] [place] [address] Platelet mean volume (Bld) [Entitic vol] 11.7 fL Normal 9.4-12.4 [facility] Comment on above: Performed By: #### P OCGL #### [facility] [address] [place] [address] RBC 3.13 mill/mm3 Low 4.70-6.10 [facility] Comment on above: Performed By: #### P OCGL #### [facility] [address] [place] [address] RDW-SD 46.9 fL High 35.0-45.0 [facility] Comment on above: Performed By: #### P OCGL #### [facility] [address] [place] [address] WBC 4.3 thou/mm3 Low 4.8-10.8 [facility] Comment on above: Performed By: #### P OCGL #### [facility] [address] [place] [address] GFR, ESTIMATEDon 02-15-2022 GFR/1.73 sq M.predicted MDRD (S/P/Bld) [Vol rate/Area] 75 mL/min/{1.73_m2} Abnormal [facility] Comment on above: Result Comment: Lilliam crum [...] By: #### C BCND, BMP, ANION, EGFR1 ####[facility] [employer] [facility] [id number] [place] [address] GLUCOSE POCon 02-15-2022 Glucose [Mass/Vol] 89 mg/dL Normal 70-108 [facility] Comment on above: Performed By: #### P OCGL #### [facility] [address] [place] [address] Glucose [Mass/Vol] 101 mg/dL Normal 70-108 [facility] Comment on above: Performed By: #### P OCGL ####[facility] [address] [place] [address] Glucose [Mass/Vol] 98 mg/dL Normal 70-108 [facility] Comment on above: Performed By: #### C BCND, PT, APTT, BMP, ANION, EGFR1 #### [facility] [address] [place] [address] Glucose [Mass/Vol] 85 mg/dL Normal 70-108 [facility] Comment on above: Performed By: #### P OCGL #### [facility] [address] [place] [address] Glomerular Filtration Rate, Estimatedon 02-15-2022 GFR/1.73 sq M.predicted MDRD (S/P/Bld) [Vol rate/Area] 75 mL/min/{1.73_m2} Abnormal ml/min/1.7 3m2 [facility] Comment on above: Stage Description GF R, [...] Vol. 139 (2) pg 137-147. Performed at [facility] [address] [place] [address] No Panel Informationon 02-15 Interpretation and review of laboratory results Abnormal [facility] POCT glucoseon 02-15-2022 Glucose [Mass/Vol] 89 mg/dL 70 - 108 mg/dl [facility] Comment on above: Performed at [facility] [address] [place] [address] Glucose [Mass/Vol] 101 mg/dL 70 - 108 mg/dl [facility] Comment on above: Performed at [facility] [address] [place] [address] Glucose [Mass/Vol] 98 mg/dL 70 - 108 mg/dl [facility] Comment on above: Performed at [facility] [address] [place] [address] Glucose [Mass/Vol] 85 mg/dL 70 - 108 mg/dl [facility] Comment on above: Performed at [facility] [address] [place] [address] [facility] GLUCOSE POCon 02-14-2022 Glucose [Mass/Vol] 79 mg/dL Normal 70-108 [facility] Comment on above: Performed at [facility] [address] [place] [address] Performed By: #### P OCGL #### [facility] [employer] [address] [address] Glucose [Mass/Vol] 94 mg/dL Normal 70-108 [facility] Comment on above: Performed By: #### P OCGL ####[employer] [id number] [place] [address] Glucose [Mass/Vol] 86 mg/dL Normal 70-108 [facility] Comment on above: Performed By: #### C BCND, PT, APTT, BMP, ANION, EGFR1 #### [facility] [address] [place] [address] Glucose [Mass/Vol] 100 mg/dL Normal 70-108 [facility] Comment on above: Performed By: #### C BCND, PT, APTT, BMP, ANION, EGFR1 #### [facility] [address] [place] [address] Glucose [Mass/Vol] 90 mg/dL Normal 70-108 [facility] Comment on above: Performed By: #### C BCND, PT, APTT, BMP, ANION, EGFR1 #### [facility] [address] [place] [address] No Panel Informationon 02-14 [facility] POCT glucoseon 02-14-2022 Glucose [Mass/Vol] 94 mg/dL 70 - 108 mg/dl [facility] Comment on above: Performed at [facility] [address] [place] [address] Glucose [Mass/Vol] 86 mg/dL 70 - 108 mg/dl [facility] Comment on above: Performed at [facility] [address] [place] [address] Glucose [Mass/Vol] 100 mg/dL 70 - 108 mg/dl [facility] Comment on above: Performed at [facility] [address] [place] [address] Glucose [Mass/Vol] 90 mg/dL 70 - 108 mg/dl [facility] Comment on above: Performed at [facility] [address] [place] [address] [facility] GLUCOSE POCon 02-13-2022 Glucose [Mass/Vol] 82 mg/dL Normal 70-108 [facility] Comment on above: Performed By: #### C BCND, PT, APTT, BMP, ANION, EGFR1 #### [address] [address] Glucose [Mass/Vol] 95 mg/dL Normal 70-108 [facility] Comment on above: Performed By: #### C BCND, PT, APTT, BMP, ANION, EGFR1 #### [address] [address] Glucose [Mass/Vol] 85 mg/dL Normal 70-108 [facility] Comment on above: Performed By: #### C BCND, PT, APTT, BMP, ANION, EGFR1 #### [address] [address] Glucose [Mass/Vol] 96 mg/dL Normal 70-108 [facility] Comment on above: Performed By: #### P OCGL #### [address] [address] POCT glucoseon 02-13-2022 Glucose [Mass/Vol] 82 mg/dL 70 - 108 mg/dl [facility] Comment on above: Performed at [facility] [address] [place] [address] Glucose [Mass/Vol] 95 mg/dL 70 - 108 mg/dl [facility] Comment on above: Performed at [facility] [address] [place] [address] Glucose [Mass/Vol] 85 mg/dL 70 - 108 mg/dl [facility] Comment on above: Performed at [facility] [address] [place] [address] Glucose [Mass/Vol] 96 mg/dL 70 - 108 mg/dl [facility] Comment on above: Performed at [facility] [address] [place], [place] [address] [facility] ANION GAPon 02-12-2022 Anion gap [Moles/Vol] 9.0 mmol/L Normal 8.0-16.0 [facility] Comment on above: Result Comment: ANIO N GAP = Sodium -(Chloride + CO2) Performed By: #### P OCGL #### [facility] [address] [place] [address] Anion Gapon 02-12-2022 Anion gap [Moles/Vol] 9.0 mmol/L 8.0 - 16.0 meq/L [facility] Comment on above: ANION GAP = Sodium - (Chloride + CO2) Performed at [facility] [address] [place] [address] BASIC METABOL PANELon 2021 Calcium [Mass/Vol] 8.2 mg/dL Low 8.5-10.5 [facility] Comment on above: Performed By: #### P OCGL #### [facility] [address] [place] [address] Chloride [Moles/Vol] 105 mmol/L Normal 98-111 [facility] Comment on above: Performed By: #### P OCGL #### [facility] [address] [place] [address] CO2 [Moles/Vol] 24 mmol/L Normal 23-[address] [facility] Comment on above: Performed By: #### P OCGL #### [facility] [address] [place] [address] Creatinine [Mass/Vol] 0.9 mg/dL Normal 0.4-1.2 [facility] Comment on above: Performed By: #### P OCGL #### [facility] [address] [place] [address] Glucose [Mass/Vol] 66 mg/dL Low 70-108 [facility] Comment on above: Performed By: #### P OCGL #### [facility] [address] [place] [address] Potassium [Moles/Vol] 3.9 mmol/L Normal 3.5-5.2 [facility] Comment on above: Performed By: #### P OCGL #### [facility] [address] [place] [address] Sodium [Moles/Vol] 138 mmol/L Normal 135-145 [facility] Comment on above: Performed By: #### P OCGL #### [facility] [address] [place] [address] Urea nitrogen [Mass/Vol] 17 mg/dL Normal 7-22 [facility] Comment on above: Performed By: #### P OCGL #### [facility] [address] [place] [address] Basic Metabolic Panelon 01-18 Calcium [Mass/Vol] 8.2 mg/dL Low 8.5 - 10. 5 mg/dL [facility] Comment on above: Performed at [facility] [address] [place] [address] Chloride [Moles/Vol] 105 mmol/L 98 - 11 1 meq/L [facility] CO2 [Moles/Vol] 24 mmol/L 23 - 33 meq/L [facility] Creatinine [Mass/Vol] 0.9 mg/dL 0.4 - 1.2 mg/dL [facility] Glucose [Mass/Vol] 66 mg/dL Low 70 - 108 mg/dL [facility] Potassium [Moles/Vol] 3.9 mmol/L 3.5 - 5.2 meq/L [facility] Sodium [Moles/Vol] 138 mmol/L 135 - 145 meq/L [facility] Urea nitrogen (BldV) [Mass/Vol] 17 mg/dL 7 - 22 mg/dL [facility] CBCon 02-12-2022 Erythrocyte distribution width (RBC) [Ratio] 13.8 % 11.5 - 14.5 % [facility] Erythrocyte distribution width (RBC) [Ratio] 49.3 fL High 35.0 - 45.0 fL [facility] Hematocrit (Bld) [Volume fraction] 32.0 % Low 42.0 - 52.0 % [facility] Hemoglobin.gastrointes tinal spec 1 Ql (Stl) 9.8 Low [facility] th MCH (RBC) [Entitic mass] 29.8 pg 26.0 - 33.0 pg [facility] MCHC (RBC) [Mass/Vol] 30.6 g/dL Low [facility] MCV (RBC) [Entitic vol] 97.3 fL High 80.0 - 94.0 fL [facility] Platelet mean volume (Bld) [Entitic vol] 12.3 fL 9.4 - 12.4 fL [facility] Comment on above: Performed at [facility] [address] [place] [address] Platelets (Bld) [#/Vol] 142 10*3/uL [facility] RBC (Bld) [#/Vol] 3.29 10*6/uL Low [facility] WBC (Bld) [#/Vol] 5.1 10*3/uL [facility] CBC NO DIFFERENTIALon 2021 Erythrocyte distribution width (RBC) [Ratio] 13.8 % Normal 11.5-14.5 [facility] Comment on above: Performed By: #### P OCGL #### [employer] [address] [place] [address] Hematocrit (Bld) [Volume fraction] 32.0 % Low 42.0-52.0 [facility] Comment on above: Performed By: #### P OCGL #### [employer] [address] [place] [address] Hemoglobin (Bld) [Mass/Vol] 9.8 g/dL Low 14.0-18.0 [facility] Comment on above: Performed By: #### P OCGL #### [employer] [address] [place] [address] MCH (RBC) [Entitic mass] 29.8 pg Normal 26.0-33.0 [facility] Comment on above: Performed By: #### P OCGL #### [facility] [address] [place] [address] MCHC (RBC) [Mass/Vol] 30.6 g/dL Low 32.2-35.5 [facility] Comment on above: Performed By: #### P OCGL #### [facility] [employer] [address] [place] [address] MCV (RBC) [Entitic vol] 97.3 fL High 80.0-94.0 [facility] Comment on above: Performed By: #### P OCGL #### [facility] [address] [place] [address] PLATELET 142 thou/mm3 Normal 130-400 [facility] Comment on above: Performed By: #### P OCGL #### [facility] [address] [place] [address] Platelet mean volume (Bld) [Entitic vol] 12.3 fL Normal 9.4-12.4 [facility] Comment on above: Performed By: #### P OCGL #### [facility] [address] [place] [address] RBC 3.29 mill/mm3 Low 4.70-6.10 [facility] Comment on above: Performed By: #### P OCGL #### [facility] [address] [address] RDW-SD 49.3 fL High 35.0-45.0 [facility] Comment on above: Performed By: #### P OCGL #### [facility] [address] [place] [address] WBC 5.1 thou/mm3 Normal 4.8-10.8 [facility] Comment on above: Performed By: #### P OCGL #### [facility] [employer] [address] [address] GFR, ESTIMATEDon 02-12-2022 GFR/1.73 sq M.predicted MDRD (S/P/Bld) [Vol rate/Area] 85 mL/min/{1.73_m2} Abnormal [facility] Comment on above: Result Comment: Lilliam crum [...] 137-147. Performed By: #### P OCGL #### [facility] [address] [place] [address] GLUCOSE POCon 02-12-2022 Glucose [Mass/Vol] 90 mg/dL Normal 70-108 [facility] Comment on above: Performed By: #### P OCGL ####[facility] [id number] [place] [address] Glucose [Mass/Vol] 86 mg/dL Normal 70-108 [facility] Comment on above: Performed By: #### P OCGL ####[facility] [address] [place] [address] Glucose [Mass/Vol] 84 mg/dL Normal 70-108 [facility] Comment on above: Performed By: #### C BCND, PT, APTT, BMP, ANION, EGFR1 #### [address] [address] Glucose [Mass/Vol] 95 mg/dL Normal 70-108 [facility] Comment on above: Performed By: #### P OCGL #### [address] [address] Glomerular Filtration Rate, Estimatedon 02-12-2022 GFR/1.73 sq M.predicted MDRD (S/P/Bld) [Vol rate/Area] 85 mL/min/{1.73_m2} Abnormal ml/min/1.[address] [place] [address] Comment on above: Stage Description GF R, [...] Vol. 139 (2) pg 137-147. Performed at [facility] [address] [place] [address] No Panel Informationon 02-12 Interpretation and review of laboratory results Abnormal [facility] POCT glucoseon 02-12-2022 Glucose [Mass/Vol] 90 mg/dL 70 - 108 mg/dl [facility] Comment on above: Performed at [facility] [address] [place] [address] Glucose [Mass/Vol] 86 mg/dL 70 - 108 mg/dl [facility] Comment on above: Performed at [facility] [address] [place] [address] Glucose [Mass/Vol] 84 mg/dL 70 - 108 mg/dl [facility] Comment on above: Performed at [facility] [address] [place] [address] Glucose [Mass/Vol] 95 mg/dL 70 - 108 mg/dl [facility] Comment on above: Performed at [facility] [address] [place] [address] [facility] CBCon 02-11-2022 Erythrocyte distribution width (RBC) [Ratio] 13.7 % 11.5 - 14.5 % [facility] Erythrocyte distribution width (RBC) [Ratio] 48.8 fL High 35.0 - 45.0 fL [facility] Hematocrit (Bld) [Volume fraction] 31.5 % Low 42.0 - 52.0 % [facility] Hemoglobin.gastrointes tinal spec 1 Ql (Stl) 9.8 Low [facility] th Interpretation and review of laboratory results Abnormal [facility] MCH (RBC) [Entitic mass] 30.2 pg 26.0 - 33.0 pg [facility] MCHC (RBC) [Mass/Vol] 31.1 g/dL Low [facility] MCV (RBC) [Entitic vol] 97.2 fL High 80.0 - 94.0 fL [facility] Platelet mean volume (Bld) [Entitic vol] 12.8 fL High 9.4 - 12.4 fL [facility] Comment on above: Performed at [facility] [address] [place] [address] Platelets (Bld) [#/Vol] 122 10*3/uL Low [facility] RBC (Bld) [#/Vol] 3.24 10*6/uL Low [facility] WBC (Bld) [#/Vol] 5.7 10*3/uL [facility] CBC NO DIFFERENTIALon 2021 Erythrocyte distribution width (RBC) [Ratio] 13.7 % Normal 11.5-14.5 [facility] Comment on above: Performed By: #### P OCGL #### [facility] [address] [place] [address] Hematocrit (Bld) [Volume fraction] 31.5 % Low 42.0-52.0 [facility] Comment on above: Performed By: #### P OCGL #### [facility] [address] [place] [address] Hemoglobin (Bld) [Mass/Vol] 9.8 g/dL Low 14.0-18.0 [facility] Comment on above: Performed By: #### P OCGL #### [address] [address] MCH (RBC) [Entitic mass] 30.2 pg Normal 26.0-33.0 [facility] Comment on above: Performed By: #### P OCGL #### [address] [address] MCHC (RBC) [Mass/Vol] 31.1 g/dL Low 32.2-35.5 [facility] Comment on above: Performed By: #### P OCGL #### [address] [address] MCV (RBC) [Entitic vol] 97.2 fL High 80.0-94.0 [facility] Comment on above: Performed By: #### P OCGL #### [address] [address] PLATELET 122 thou/mm3 Low 130-400 [facility] Comment on above: Performed By: #### P OCGL #### [facility] [address] [place] [address] Platelet mean volume (Bld) [Entitic vol] 12.8 fL High 9.4-12.4 [facility] Comment on above: Performed By: #### P OCGL #### [address] [address] RBC 3.24 mill/mm3 Low 4.70-6.10 [facility] Comment on above: Performed By: #### P OCGL #### [address] [address] RDW-SD 48.8 fL High 35.0-45.0 [facility] Comment on above: Performed By: #### P OCGL #### [address] [address] WBC 5.7 thou/mm3 Normal 4.8-10.8 [facility] Comment on above: Performed By: #### P OCGL #### [address] [address] GLUCOSE POCon 02-11-2022 Glucose [Mass/Vol] 112 mg/dL High 70-108 [facility] Comment on above: Performed By: #### C BCND, PT, APTT, BMP, ANION, EGFR1 #### [address] [address] Glucose [Mass/Vol] 90 mg/dL Normal 70-108 [facility] Comment on above: Performed By: #### P OCGL #### [address] [address] Glucose [Mass/Vol] 87 mg/dL Normal 70-108 [facility] Comment on above: Performed By: #### C BCND, PT, APTT, BMP, ANION, EGFR1 #### [address] [address] Glucose [Mass/Vol] 116 mg/dL High 70-108 [facility] Comment on above: Performed By: #### P OCGL #### [address] [address] POCT Glucoseon 02-11-2022 Glucose [Mass/Vol] 112 mg/dL High 70 - 108 mg/dl [facility] Comment on above: Performed at [facility] [address] [place] [address] Glucose [Mass/Vol] 90 mg/dL 70 - 108 mg/dl [facility] Comment on above: Performed at [facility] [address] [place] [address] Glucose [Mass/Vol] 87 mg/dL 70 - 108 mg/dl [facility] Comment on above: Performed at [facility] [address] [place] [address] Interpretation and review of laboratory results Abnormal [facility] POCT glucoseon 02-11-2022 Glucose [Mass/Vol] 116 mg/dL High 70 - 108 mg/dl [facility] Comment on above: Performed at [facility] [address] [place] [address] Interpretation and review of laboratory results Abnormal [facility] VITAMIN B12 FOLATEon 022 Cobalamin (Vitamin B12) [Mass/Vol] 386 pg/mL Normal 211-911 [facility] Comment on above: Performed By: #### C BCND, PT, APTT, BMP, ANION, EGFR1 #### [address] [address] FOLATE 7.5 ng/mL Normal 4.8-24.2 [facility] Comment on above: Performed By: #### C BCND, PT, APTT, BMP, ANION, EGFR1 #### [place] [address] Vitamin B12 & Folateon 02-11 Cobalamin (Vitamin B12) [Mass/Vol] 386 pg/mL 211 - 911 pg/mL [facility] Folate 7.5 ng/mL 4.8 - 24.2 ng/mL [facility] Comment on above: Performed at [facility] [address] [place] [address] CORTISOLon 02-10-2022 CORTISOL SPECIMEN 60 Minute Normal [facility] Comment on above: Performed By: #### P OCGL #### [place] [address] ECHO Complete 2D W Doppler W Coloron 02-10-2022 Transthoracic Echocardiography Report (TTE) Demographics Patient Name SUNNY Cox Gender Male MR # [id number] Race Ethnicity Room Number 0025 Date of Study 02/10/2022 Number Date of 1960 Referring Physician Bala Schrader MD Age 61 year(s) [employer] Lyn Prince RDCS Interpreting Beata Leahy MD [...] Mild tricuspid regurgitation. Mild mitral regurgitation. Signature Findings Mitral Valve The mitral valve structure [...] Velocity: (more content not included)... [facility] Armond Cota MD - 02/10/2022 Transthoracic Echocardiography Report (TTE) Demographics Patient Name SUNNY Cox Gender Male MR # [id number] Race Ethnicity Room Number 0025 Date of Study 02/10/2022 Number Date of 1960 Referring Physician Bala Schrader MD Age 61 year(s) [employer] Lyn Prince [facility] Interpreting Beata Leahy MD [...] Mild tricuspid regurgitation. Mild mitral regurgitation. Signature Findings Mitral Valve The mitral valve structure [...] E/E' lateral: 7.08 MR Velocity: 463 cm/s [id number]%3d Note Phone: ECHO Complete 2D W Doppler W ColorOrdered By: Armond oCta on 02-10-2022 Note Phone: ECHOCARDIOGRAM COMPLETE 2D W DOPPLER W COLORon 02-10-2022 ECHOCARDIOGRAM COMPLETE 2D W DOPPLER W COLOR Transthoracic Echocardiography Report (TTE) Demographics Patient Name SUNNY Cox Gender Male MR # [id number] Race Ethnicity Room Number 0025 Date of Study 02/10/2022 Number Date of 1960 Referring Physician Bala Schrader MD Age 61 year(s) [employer] Lyn Prince RDCS Interpreting Beata Leahy MD [...] Mild tricuspid regurgitation. Mild mitral regurgitation. Signature Findings Mitral Valve The mitral valve structure [...] E/E' lateral: 7.08 MR Velocity: 463 cm/s [id number]%3d%3d Normal [facility] GLUCOSE POCon 02-10-2022 Glucose [Mass/Vol] 125 mg/dL High 70-108 [facility] Comment on above: Performed By: #### P OCGL ####[facility] [address] [place] [address] Glucose [Mass/Vol] 136 mg/dL High 70-108 [facility] Comment on above: Performed By: #### C BCND, PT, APTT, BMP, ANION, EGFR1 #### [facility] [address] [place] [address] Glucose [Mass/Vol] 110 mg/dL High 70-108 [facility] Comment on above: Performed By: #### P OCGL #### [facility] [address] [place] [address] Glucose [Mass/Vol] 113 mg/dL High 70-108 [facility] Comment on above: Performed By: #### C BCND, PT, APTT, BMP, ANION, EGFR1 #### [address] [address] No Panel Informationon 02-10 Interpretation and review of laboratory results Abnormal [facility] POCT Glucoseon 02-10-2022 Glucose [Mass/Vol] 125 mg/dL High 70 - 108 mg/dl [facility] Comment on above: Performed at [facility] [address] [place] [address] Glucose [Mass/Vol] 136 mg/dL High 70 - 108 mg/dl [facility] Comment on above: Performed at [facility] [address] [place] [address] Glucose [Mass/Vol] 110 mg/dL High 70 - 108 mg/dl [facility] Comment on above: Performed at [facility] [address] [place] [address] Glucose [Mass/Vol] 113 mg/dL High 70 - 108 mg/dl [facility] Comment on above: Performed at [facility] [address] [place] [address] Interpretation and review of laboratory results Abnormal [facility] Interpretation and review of laboratory results Abnormal [facility] Interpretation and review of laboratory results Abnormal [facility] TSHon 02-10-2022 TSH Qn 0.354 m[IU]/L Low [facility] Comment on above: Performed at [facility] [address] [place] [address] TSH THIRD GENERATIONon 02-10 TSH THIRD GENERATION 0.354 uIU/mL Low 0.400-4 .20 0 [facility] Comment on above: Performed By: #### P OCGL #### [address] [address] CBC WITH DIFFERENTIALon 01-18 ABS BASOPHILS 0.0 thou/mm3 Normal 0.0-0.[address] [facility] Comment on above: Performed By: #### C BCND, PT, APTT, BMP, ANION, EGFR1 #### [address] [address] ABS EOSINOPHILS 0.1 thou/mm3 Normal 0.0-0.4 [facility] Comment on above: Performed By: #### C BCND, PT, APTT, BMP, ANION, EGFR1 #### [place] [address] ABS IMMATURE GRANS (IG) 0.02 thou/mm3 Normal 0.00-0.07 [facility] Comment on above: Performed By: #### C BCND, PT, APTT, BMP, ANION, EGFR1 #### [address] [address] ABS LYMPHOCYTES 1.3 thou/mm3 Normal 1.0-4.8 [facility] Comment on above: Performed By: #### C BCND, PT, APTT, BMP, ANION, EGFR1 #### [address] [address] ABS MONOCYTES 0.6 thou/mm3 Normal 0.4-1.[address] [facility] Comment on above: Performed By: #### C BCND, PT, APTT, BMP, ANION, EGFR1 #### [address] [address] ABS NEUTROPHILS 4.3 thou/mm3 Normal 1.8-7.7 [facility] Comment on above: Performed By: #### C BCND, PT, APTT, BMP, ANION, EGFR1 #### [address] [address] Basophils/100 WBC (Bld) 0.3 % Normal [facility] Comment on above: Performed By: #### C BCND, PT, APTT, BMP, ANION, EGFR1 #### [address] [address] Eosinophils/100 WBC (Bld) 1.4 % Normal [facility] Comment on above: Performed By: #### C BCND, PT, APTT, BMP, ANION, EGFR1 #### [place] [address] Erythrocyte distribution width (RBC) [Ratio] 13.3 % Normal 11.5-14.5 [facility] Comment on above: Performed By: #### C BCND, PT, APTT, BMP, ANION, EGFR1 #### [address] [address] Hematocrit (Bld) [Volume fraction] 34.3 % Low 42.0-52.0 [facility] Comment on above: Performed By: #### C BCND, PT, APTT, BMP, ANION, EGFR1 #### [place] [address] Hemoglobin (Bld) [Mass/Vol] 10.8 g/dL Low 14.0-18.0 [facility] Comment on above: Performed By: #### C BCND, PT, APTT, BMP, ANION, EGFR1 #### [place] [address] IMMATURE GRANS (IG) 0.3 % Normal [facility] Comment on above: Performed By: #### C BCND, PT, APTT, BMP, ANION, EGFR1 #### [address] [address] Lymphocytes/100 WBC (Bld) 20.2 % Normal [facility] Comment on above: Performed By: #### C BCND, PT, APTT, BMP, ANION, EGFR1 #### [address] [address] MCH (RBC) [Entitic mass] 30.2 pg Normal 26.0-33.0 [facility] Comment on above: Performed By: #### C BCND, PT, APTT, BMP, ANION, EGFR1 #### [address] [address] MCHC (RBC) [Mass/Vol] 31.5 g/dL Low 32.2-35.5 [facility] Comment on above: Performed By: #### C BCND, PT, APTT, BMP, ANION, EGFR1 #### [address] [address] MCV (RBC) [Entitic vol] 95.8 fL High 80.0-94.0 [facility] Comment on above: Performed By: #### C BCND, PT, APTT, BMP, ANION, EGFR1 #### [address] [address] Monocytes/100 WBC (Bld) 9.5 % Normal [facility] Comment on above: Performed By: #### C BCND, PT, APTT, BMP, ANION, EGFR1 #### [address] [address] Neutrophils/100 WBC (Bld) 68.3 % Normal [facility] Comment on above: Performed By: #### C BCND, PT, APTT, BMP, ANION, EGFR1 #### [address] [address] NRBC 0 /100 wbc Normal [facility] Comment on above: Performed By: #### C BCND, PT, APTT, BMP, ANION, EGFR1 #### [address] [address] PLATELET 98 thou/mm3 Low 130-400 [facility] Comment on above: Performed By: #### C BCND, PT, APTT, BMP, ANION, EGFR1 #### [address] [address] Platelet mean volume (Bld) [Entitic vol] 12.9 fL High 9.4-12.4 [facility] Comment on above: Performed By: #### C BCND, PT, APTT, BMP, ANION, EGFR1 #### [address] [address] RBC 3.58 mill/mm3 Low 4.70-6.10 [facility] Comment on above: Performed By: #### C BCND, PT, APTT, BMP, ANION, EGFR1 #### [facility] [address] [place] [address] RDW-SD 47.0 fL High 35.0-45.0 [facility] Comment on above: Performed By: #### C BCND, PT, APTT, BMP, ANION, EGFR1 #### [facility] [employer] [facility] [address] [place] [address] WBC 6.3 thou/mm3 Normal 4.8-10.8 [facility] Comment on above: Performed By: #### C BCND, PT, APTT, BMP, ANION, EGFR1 #### [facility] [address] [place] [address] CBC with Auto Differentialon 02-09-2022 Basophils (Bld) [#/Vol] 0.0 10*3/uL [facility] Basophils/100 WBC (Bld) 0.3 % [facility] Eosinophils Absolute 0.1 [facility] Eosinophils/100 WBC (Bld) 1.4 % [facility] Erythrocyte distribution width (RBC) [Ratio] 13.3 % 11.5 - 14.5 % [facility] Erythrocyte distribution width (RBC) [Ratio] 47 fL High 35.0 - 45.0 fL [facility] Hematocrit (Bld) [Volume fraction] 34.3 % Low 42.0 - 52.0 % [facility] Hemoglobin.gastrointes tinal spec 1 Ql (Stl) 10.8 Low [facility] Immature Grans (Abs) 0.02 [facility] y [facility] Immature granulocytes/100 WBC (Bld) 0.3 % [facility] Interpretation and review of laboratory results Abnormal [facility] Lymphocytes Absolute 1.3 [facility] Lymphocytes/100 WBC (Bld) 20.2 % [facility] MCH (RBC) [Entitic mass] 30.2 pg 26.0 - 33.0 pg [facility] MCHC (RBC) [Mass/Vol] 31.5 g/dL Low [facility] MCV (RBC) [Entitic vol] 95.8 fL High 80.0 - 94.0 fL [facility] Monocytes Absolute 0.6 [facility] Monocytes/100 WBC (Bld) 9.5 % [facility] nRBC 0 /100 wbc [facility] Comment on above: Performed at [facility] [address] [place] [address] Platelet mean volume (Bld) [Entitic vol] 12.9 fL High 9.4 - 12.4 fL [facility] Platelets (Bld) [#/Vol] 98 10*3/uL Low [facility] RBC (Bld) [#/Vol] 3.58 10*6/uL [facility] Segmented neutrophils/100 WBC (Bld) 68.3 % [facility] Segs Absolute 4.3 [facility] WBC (Bld) [#/Vol] 6.3 10*3/uL [facility] CORTISOLon 02-09-2022 CORTISOL 4.35 ug/dL Normal [facility] Comment on above: Result Comment: Refe rence ranges AM serum (7-9AM): 4.82-19.5 ug/dl PM serum (3-5PM): 2.47-11.9 ug/dl Performed By: #### P OCGL #### [employer] [address] [place] [address] Cortisol 7.85 ug/dL Normal [facility] Comment on above: Reference ranges AM serum (7-9AM): 4.82-19.5 ug/dl PM serum (3-5PM): 2.47-11.9 ug/dl Result Comment: Refe rence ranges AM serum (7-9AM): 4.82-19.5 ug/dl PM serum (3-5PM): 2.47-11.9 ug/dl Performed By: #### P OCGL #### [employer] [address] [place] [address] CORTISOL 15.55 ug/dL Normal [facility] Comment on above: Result Comment: Refe rence ranges AM serum (7-9AM): 4.82-19.5 ug/dl PM serum (3-5PM): 2.47-11.9 ug/dl Performed By: #### P OCGL #### [employer] [address] [place] [address] CORTISOL 21.14 ug/dL Normal [facility] Comment on above: Result Comment: Refe rence ranges AM serum (7-9AM): 4.82-19.5 ug/dl PM serum (3-5PM): 2.47-11.9 ug/dl Performed By: #### P OCGL #### [facility] [employer] [address] [address] CORTISOL SPECIMEN AM Specimen Normal [facility] Comment on above: Performed By: #### P OCGL #### [facility] [address] [place] [address] CORTISOL SPECIMEN Baseline Normal [facility] Comment on above: Performed By: #### P OCGL #### [facility] [address] [place] [address] CORTISOL SPECIMEN 30 Minute Normal [facility] Comment on above: Performed By: #### P OCGL #### [facility] [employer] [address] [address] Cortisol Totalon 02-09-2022 Cortisol 4.35 ug/dL [facility] Comment on above: Reference ranges AM serum (7-9AM): 4.82-19.5 ug/dl PM serum (3-5PM): 2.47-11.9 ug/dl Cortisol 15.55 ug/dL [facility] Comment on above: Reference ranges AM serum (7-9AM): 4.82-19.5 ug/dl PM serum (3-5PM): 2.47-11.9 ug/dl Cortisol 21.14 ug/dL [employer] [facility] Comment on above: Reference ranges AM serum (7-9AM): 4.82-19.5 ug/dl PM serum (3-5PM): 2.47-11.9 ug/dl Cortisol Collection Info AM Specimen [facility] Comment on above: Performed at [facility] [address] [place] [address] Cortisol Collection Info 30 Minute [employer] [facility] Comment on above: Performed at [facility] [address] [place] [address] Cortisol Collection Info 60 Minute [employer] [facility] Comment on above: Performed at [facility] [address] [place] [address] [facility] Cortisol, 0 minuteson 2021 Cortisol Collection Info Baseline [facility] Comment on above: Performed at [facility] [address] [place] [address] GLUCOSE POCon 02-09-2022 Glucose [Mass/Vol] 117 mg/dL High 70-108 [facility] Comment on above: Performed By: #### P OCGL #### [facility] [address] [place] [address] Glucose [Mass/Vol] 106 mg/dL Normal 70-108 [facility] Comment on above: Performed By: #### P OCGL #### [facility] [address] [place] [address] Glucose [Mass/Vol] 121 mg/dL High 70-108 [facility] Comment on above: Performed By: #### P OCGL #### [facility] [address] [place] [address] Glucose [Mass/Vol] 167 mg/dL High 70-108 [facility] Comment on above: Performed By: #### C BCND, PT, APTT, BMP, ANION, EGFR1 #### [address] [address] Glucose [Mass/Vol] 154 mg/dL High 70-108 [facility] Comment on above: Performed By: #### P OCGL #### [address] [address] No Panel Informationon 02-09 [facility] POCT Glucoseon 02-09-2022 Glucose [Mass/Vol] 117 mg/dL High 70 - 108 mg/dl [facility] Comment on above: Performed at [facility] [address] [place] [address] Glucose [Mass/Vol] 106 mg/dL 70 - 108 mg/dl [facility] Comment on above: Performed at [facility] [address] [place] [address] Glucose [Mass/Vol] 121 mg/dL High 70 - 108 mg/dl [facility] Comment on above: Performed at [facility] [address] [place] [address] Glucose [Mass/Vol] 167 mg/dL High 70 - 108 mg/dl [facility] Comment on above: Performed at [facility] [address] [place] [address] Glucose [Mass/Vol] 154 mg/dL High 70 - 108 mg/dl [facility] Comment on above: Performed at [facility] [address] [place] [address] Interpretation and review of laboratory results Abnormal [facility] Interpretation and review of laboratory results Abnormal [facility] Interpretation and review of laboratory results Abnormal [facility] Interpretation and review of laboratory results Abnormal [facility] ANION GAPon 02-08-2022 Anion gap [Moles/Vol] 9.0 mmol/L Normal 8.0-16.0 [facility] Comment on above: Result Comment: ANIO N GAP = Sodium -(Chloride + CO2) Performed By: #### C BCND, PT, APTT, BMP, ANION, EGFR1 #### [facility] [address] [place] [address] Anion Gapon 02-08-2022 Anion gap [Moles/Vol] 6.0 mmol/L Low 8.0 - 16.0 meq/L [facility] Comment on above: ANION GAP = Sodium - (Chloride + CO2) Performed at [facility] [address] [place] [address] Anion gap [Moles/Vol] 9.0 mmol/L 8.0 - 16.0 meq/L [facility] Comment on above: ANION GAP = Sodium - (Chloride + CO2) Performed at [facility] [address] [place] [address] BASIC METABOL PANELon 2021 Calcium [Mass/Vol] 7.8 mg/dL Low 8.5-10.5 [facility] Comment on above: Performed By: #### C BCND, PT, APTT, BMP, ANION, EGFR1 #### [facility] [address] [place] [address] Chloride [Moles/Vol] 108 mmol/L Normal 98-111 [facility] Comment on above: Performed By: #### C BCND, PT, APTT, BMP, ANION, EGFR1 #### [facility] [address] [place] [address] CO2 [Moles/Vol] 21 mmol/L Low 23-[address] [facility] Comment on above: Performed By: #### C BCND, PT, APTT, BMP, ANION, EGFR1 #### [facility] [address] [place] [address] Creatinine [Mass/Vol] 1.0 mg/dL Normal 0.4-1.2 [facility] Comment on above: Performed By: #### C BCND, PT, APTT, BMP, ANION, EGFR1 #### [facility] [address] [place] [address] Glucose [Mass/Vol] 112 mg/dL High 70-108 [facility] Comment on above: Performed By: #### C BCND, PT, APTT, BMP, ANION, EGFR1 #### [facility] [address] [place] [address] Potassium [Moles/Vol] 4.3 mmol/L Normal 3.5-5.2 [facility] Comment on above: Performed By: #### C BCND, PT, APTT, BMP, ANION, EGFR1 #### [facility] [address] [place] [address] Sodium [Moles/Vol] 138 mmol/L Normal 135-145 [facility] Comment on above: Performed By: #### C BCND, PT, APTT, BMP, ANION, EGFR1 #### [facility] [address] [place] [address] Urea nitrogen [Mass/Vol] 12 mg/dL Normal 7-22 [facility] Comment on above: Performed By: #### C BCND, PT, APTT, BMP, ANION, EGFR1 #### [address] [address] Basic Metabolic Panelon -2 Calcium [Mass/Vol] 7.5 mg/dL Low 8.5 - 10. 5 mg/dL [facility] Comment on above: Performed at [facility] [address] [place] [address] Calcium [Mass/Vol] 7.8 mg/dL Low 8.5 - 10. 5 mg/dL [facility] Comment on above: Performed at [facility] [address] [place] [address] Chloride [Moles/Vol] 109 mmol/L 98 - 11 1 meq/L [facility] Chloride [Moles/Vol] 108 mmol/L 98 - 11 1 meq/L [facility] CO2 [Moles/Vol] 22 mmol/L Low 23 - 33 meq/L [facility] CO2 [Moles/Vol] 21 mmol/L Low 23 - 33 meq/L [facility] Creatinine [Mass/Vol] 0.8 mg/dL 0.4 - 1.2 mg/dL [facility] Creatinine [Mass/Vol] 1 mg/dL 0.4 - 1.2 mg/dL [facility] Glucose [Mass/Vol] 104 mg/dL 70 - 108 mg/dL [facility] Glucose [Mass/Vol] 112 mg/dL High 70 - 108 mg/dL [facility] Potassium [Moles/Vol] 3.8 mmol/L 3.5 - 5.2 meq/L [facility] Potassium [Moles/Vol] 4.3 mmol/L 3.5 - 5.2 meq/L [facility] Sodium [Moles/Vol] 137 mmol/L 135 - 145 meq/L [facility] Sodium [Moles/Vol] 138 mmol/L 135 - 145 meq/L [facility] Urea nitrogen (BldV) [Mass/Vol] 12 mg/dL 7 - 22 mg/dL [facility] Urea nitrogen (BldV) [Mass/Vol] 12 mg/dL 7 - 22 mg/dL [facility] CBCon 02-08-2022 Erythrocyte distribution width (RBC) [Ratio] 13.4 % 11.5 - 14.5 % [facility] Erythrocyte distribution width (RBC) [Ratio] 48.5 fL High 35.0 - 45.0 fL [facility] Hematocrit (Bld) [Volume fraction] 33.5 % Low 42.0 - 52.0 % [facility] Hemoglobin.gastrointes tinal spec 1 Ql (Stl) 10.2 Low [facility] MCH (RBC) [Entitic mass] 30.1 pg 26.0 - 33.0 pg [facility] MCHC (RBC) [Mass/Vol] 30.4 g/dL Low [facility] MCV (RBC) [Entitic vol] 98.8 fL High 80.0 - 94.0 fL [facility] Platelet mean volume (Bld) [Entitic vol] 12.9 fL High 9.4 - 12.4 fL [facility] Comment on above: Performed at [facility] [address] [place] [address] Platelets (Bld) [#/Vol] 89 10*3/uL Low [facility] RBC (Bld) [#/Vol] 3.39 10*6/uL Low [facility] WBC (Bld) [#/Vol] 6.2 10*3/uL [facility] CBC NO DIFFERENTIALon 2021 Erythrocyte distribution width (RBC) [Ratio] 13.4 % Normal 11.5-14.5 [facility] Comment on above: Performed By: #### P OCGL #### [employer] [address] [address] Hematocrit (Bld) [Volume fraction] 33.5 % Low 42.0-52.0 [facility] Comment on above: Performed By: #### P OCGL #### [employer] [facility] [employer] [address] [place] [address] Hemoglobin (Bld) [Mass/Vol] 10.2 g/dL Low 14.0-18.0 [facility] Comment on above: Performed By: #### P OCGL #### [employer] [address] [address] MCH (RBC) [Entitic mass] 30.1 pg Normal 26.0-33.0 [facility] Comment on above: Performed By: #### P OCGL #### [employer] [address] [address] MCHC (RBC) [Mass/Vol] 30.4 g/dL Low 32.2-35.5 [facility] Comment on above: Performed By: #### P OCGL #### [employer] [address] [address] MCV (RBC) [Entitic vol] 98.8 fL High 80.0-94.0 [facility] Comment on above: Performed By: #### P OCGL #### [employer] [address] [place] [address] PLATELET 89 thou/mm3 Low 130-400 [facility] Comment on above: Performed By: #### P OCGL #### [employer] [address] [place] [address] Platelet mean volume (Bld) [Entitic vol] 12.9 fL High 9.4-12.4 [facility] Comment on above: Performed By: #### P OCGL #### [facility] [address] [place] [address] RBC 3.39 mill/mm3 Low 4.70-6.10 [facility] Comment on above: Performed By: #### P OCGL #### [facility] [address] [place] [address] RDW-SD 48.5 fL High 35.0-45.0 [facility] Comment on above: Performed By: #### P OCGL #### [facility] [address] [place] [address] 40580 WBC 6.2 thou/mm3 Normal 4.8-10.8 [facility] Comment on above: Performed By: #### P OCGL #### [employer] [address] [place] [address]6739 EKG 12 LeadOrdered By: Susan Carrion on 02-08-2022 Atrial Rate 55 BPM [employer] Work Phone: P Flint 27 degrees [employer] Work Phone: P-R Interval 162 ms Note Phone: Q-T Interval 460 ms Note Phone: QRS Duration 94 ms [employer] Work Phone: QTc Calculation (Bazett) 440 ms [employer] Work Phone: R Flint -22 degrees [employer] Work Phone: T Flint 1 degrees [employer] Work Phone: Ventricular Rate 55 BPM [employer] Work Phone: Note Phone: EKG 12 Leadon 02-08-2022 Sinus bradycardia Otherwise normal ECG When compared with ECG of 23-JAN-2022 11:32, No significant change was found Confirmed by USSAN CARRION ([id number]) on 02/08/2022 10:35:59 AM [facility] STR MUSE Susan Carrion MD - 02/08/2022 Sinus bradycardia Otherwise normal ECG When compared with ECG of 23-JAN-2022 11:32, No significant change was found Confirmed by SUSAN CARRION ([id number]) on 02/08/2022 10:35:59 AM Note Phone: EKG 12-LEADon 02-08-2022 EKG 12-LEAD 55 55 162 94 460 440 27 -22 1 Sinus bradycardia Otherwise normal ECG When compared with ECG of 23-JAN-2022 11:32, No significant change was found Confirmed by SUSAN CARRION ([id number]) on 02/08/2022 10:35:59 AM [email or web address] [id number]&Date=09-02-20 22&Time=09%3a14%3a41%3a00 &TestType=ECG&Site=3&Outp utType=PDF&Ext=PDF Normal [facility] GFR, ESTIMATEDon 02-08-2022 GFR/1.73 sq M.predicted MDRD (S/P/Bld) [Vol rate/Area] 75 mL/min/{1.73_m2} Abnormal [facility] Comment on above: Result Comment: Lilliam crum [...] BCND, PT, APTT, BMP, ANION, EGFR1 #### [facility] [employer] [address] [place] [address] GLUCOSE POCon 02-08-2022 Glucose [Mass/Vol] 126 mg/dL High 70-108 [facility] Comment on above: Performed By: #### P OCGL #### [facility] [address] [place] [address] Glucose [Mass/Vol] 101 mg/dL Normal 70-108 [facility] Comment on above: Performed By: #### C BCND, PT, APTT, BMP, ANION, EGFR1 #### [facility] [address] [place] [address] Glucose [Mass/Vol] 68 mg/dL Low 70-108 [facility] Comment on above: Performed By: #### P OCGL #### [facility] [address] [place] [address] Glucose [Mass/Vol] 116 mg/dL High 70-108 [facility] Comment on above: Performed By: #### C BCND, PT, APTT, BMP, ANION, EGFR1 #### [facility] [address] [place] [address] Glucose [Mass/Vol] 66 mg/dL Low 70-108 [facility] Comment on above: Performed By: #### P OCGL #### [facility] [address] [place] [address] Glucose [Mass/Vol] 111 mg/dL High 70-108 [facility] Comment on above: Performed By: #### C BCND, PT, APTT, BMP, ANION, EGFR1 #### [facility] [address] [place] [address] Glucose [Mass/Vol] 71 mg/dL Normal 70-108 [facility] Comment on above: Performed By: #### P OCGL ####[facility] [employer] [address] [place] [address] Glomerular Filtration Rate, Estimatedon 02-08-2022 GFR/1.73 sq M.predicted MDRD (S/P/Bld) [Vol rate/Area] mL/min/{1.73_m2} ml/min/1.[address] [place] [address] Comment on above: Stage Description GF R, [...] Vol. 139 (2) pg 137-147. Performed at [facility] [address] [place] [address] GFR/1.73 sq M.predicted MDRD (S/P/Bld) [Vol rate/Area] 75 mL/min/{1.73_m2} Abnormal ml/min/1.7 2 [facility] Comment on above: Stage Description GF R, [...] Vol. 139 (2) pg 137-147. Performed at [facility] [address] [place] [address] HGB,HCTon 02-08-2022 Hematocrit (Bld) [Volume fraction] 37.3 % Low 42.0-52.0 [facility] Comment on above: Performed By: #### P OCGL #### [facility] [address] [place] [address] 11598 Hemoglobin (Bld) [Mass/Vol] 11.4 g/dL Low 14.0-18.0 [facility] Comment on above: Performed By: #### P OCGL #### [facility] [address] [place] [address] 17406 Hemoglobin and Hematocriton 02-08-2022 Hematocrit (Bld) [Volume fraction] 37.3 % Low 42.0 - 52.0 % [facility] Comment on above: Performed at [facility] [address] [place] [address] Hemoglobin.gastrointes tinal spec 1 Ql (Stl) 11.4 Low [facility] Hemoglobin and hematocrit, b loodon 02-08-2022 Hematocrit (Bld) [Volume fraction] 36.9 % Low 42.0 - 52.0 % [facility] Comment on above: Performed at [facility] [address] [place] [address] Hemoglobin.gastrointes tinal spec 1 Ql (Stl) 11.6 Low [facility] th No Panel Informationon 02-08 Interpretation and review of laboratory results Abnormal [facility] Interpretation and review of laboratory results Abnormal [facility] Interpretation and review of laboratory results Abnormal [facility] POCT Glucoseon 02-08-2022 Glucose [Mass/Vol] 126 mg/dL High 70 - 108 mg/dl [facility] Comment on above: Performed at [facility] [address] [place] [address] Glucose [Mass/Vol] 101 mg/dL 70 - 108 mg/dl [facility] Comment on above: Performed at [facility] [address] [place] [address] Glucose [Mass/Vol] 68 mg/dL Low 70 - 108 mg/dl [facility] Comment on above: Performed at [facility] [address] [place] [address] Glucose [Mass/Vol] 116 mg/dL High 70 - 108 mg/dl [facility] Comment on above: Performed at [facility] [address] [place] [address] Glucose [Mass/Vol] 66 mg/dL Low 70 - 108 mg/dl [facility] Comment on above: Performed at [facility] [address] [place] [address] Glucose [Mass/Vol] 111 mg/dL High 70 - 108 mg/dl [facility] Comment on above: Performed at [facility] [address] [place] [address] Glucose [Mass/Vol] 71 mg/dL 70 - 108 mg/dl [facility] Comment on above: Performed at [facility] [address] [place] [address] Interpretation and review of laboratory results Abnormal [facility] PROCALCITONINon 02-08-2022 PROCALCITONIN 0.08 ng/mL Normal 0.01-0.09 [facility] Comment on above: Result Comment: [...] entered into the Change in Procalcitonin Calculator (www.owwrvz-omf-accpdmovot.Sandboxx) to determine the patient's Mortality Risk Prognosis. In healthy neonates, plasma Procalcitonin (PCT) concentrations increase gradually after , reaching peak values at about 24 hours of age then decrease to normal values below 0.5 ng/mL by 48-72 hours of age. Performed By: #### P OCGL #### [employer] [address] [address] Procalcitoninon 02-08-2022 Procalcitonin 0.08 ng/mL 0.01 - 0.09 ng/mL [facility] Comment on above: Suspected Sepsis: <0.50 ng/mL [...] entered into the Change in Procalcitonin Calculator (www.cfvztn-miv-yxxjtwmvcj.Sandboxx) to determine the patient's Mortality Risk Prognosis. In healthy neonates, plasma Procalcitonin (PCT) concentrations increase gradually after , reaching peak values at about 24 hours of age then decrease to normal values below 0.5 ng/mL by 48-72 hours of age. Performed at [facility] [address] [address] SCAN OF BLOOD SMEARon 2021 SCAN OF BLOOD SMEAR see below Normal [facility] Comment on above: Result Comment: Crit rivera Exceeded; Scan of Differential Slide Performed Performed By: #### P OCGL #### [employer] [address] [place] [address] Scan of Blood Smearon 2021 SCAN OF BLOOD SMEAR see below [facility] Comment on above: Criteria Exceeded; S can of Differential Slide Performed Performed at [facility] [address] [address] XR CHEST PORTABLEon 02-09-20 Radiology Study observation (narrative) Note Phone: Prominent left basil ar opacity as evidence for atelectasis and/or infiltrate. This report has been created using voice recognition software. It may contain minor errors which are inherent in voice recognition technology. Final report electronically signed by Dr. Romel Maldonado DO, MD on 02/08/2022 10:26 AM [facility] Romel Nguyen DO - 02/08/2022 PROCEDURE: XR [...] Maldonado DO, MD on 02/08/2022 10:26 AM Note Phone: XR CHEST PORTABLEOrdered By: Romel Maldonado on 02-08-2022 Note Phone: GLUCOSE POCon 02-07-2022 Glucose [Mass/Vol] 77 mg/dL Normal 70-108 [facility] Comment on above: Performed By: #### P OCGL #### [facility] [address] [place] [address] Glucose [Mass/Vol] 118 mg/dL High 70-108 [facility] Comment on above: Performed By: #### C BCND, PT, APTT, BMP, ANION, EGFR1 #### [facility] [address] [place] [address] Glucose [Mass/Vol] 132 mg/dL High 70-108 [facility] Comment on above: Performed By: #### C BCND, PT, APTT, BMP, ANION, EGFR1 #### [facility] [employer] [facility] [address] [place] [address] No Panel Informationon 02-07 [facility] No Panel InformationOrdered By: Wicho Allen on 02-07-2022 [facility] Work Phone: POCT Glucoseon 02-07-2022 Glucose [Mass/Vol] 77 mg/dL 70 - 108 mg/dl [facility] Comment on above: Performed at [facility] [address] [place] [address] Glucose [Mass/Vol] 118 mg/dL High 70 - 108 mg/dl [facility] Comment on above: Performed at [facility] [address] [place] [address] Glucose [Mass/Vol] 132 mg/dL High 70 - 108 mg/dl [facility] Comment on above: Performed at [facility] [address] [place] [address] Interpretation and review of laboratory results Abnormal [facility] Interpretation and review of laboratory results Abnormal [facility] TYPE AND SCREENon 02-07-2022 ABO A [facility] Rh Factor Negative [facility] TYPE AND SCREEN CAPTUREon ABO CAPTURE A Normal [facility] Comment on above: Performed By: #### C BCND, PT, APTT, BMP, ANION, EGFR1 #### [facility] [employer] [address] [place] [address] INDIRECT ARVIN CAPTURE Negative Normal [facility] Comment on above: Performed By: #### C BCND, PT, APTT, BMP, ANION, EGFR1 #### [employer] [address] [place] [address] RH CAPTURE (2 D CLONES) Negative Normal [facility] Comment on above: Performed By: #### C BCND, PT, APTT, BMP, ANION, EGFR1 #### [employer] [address] [place] [address] XR LUMBAR SPINE 1 VWon 02-07 Radiology Study observation (narrative) [employer] Work Phone: Radiology Study observation (narrative) [employer] Work Phone: XR LUMBAR SPINE 1 VW MOBILE LATERAL LUMB AR SPINE: CLINICAL INFORMATION: L2 S1 decompression, posterior [...] Wicho Allen MD 02/07/22 Final result Normal [facility] Lateral film of the lumbar spine during surgery. Please refer to the operative note for further details. This report has been created using voice recognition software. It may contain minor errors which are inherent in voice recognition technology. Final report electronically signed by Dr Milton Way on 02/07/2022 2:17 PM [facility] Milton Slater MD - 02/07/2022 PROCEDURE: XR LUMBAR SPINE [...] Dr Milton Way on 02/07/2022 2:17 PM [facility] [employer] Phone: Postop appearance of the lumbar spine. This report has been created using voice recognition software. It may contain minor errors which are inherent in voice recognition technology. Final report electronically signed by Dr. Wicho Allen on 02/07/2022 2:28 PM [facility] [employer] MOBILE LATERAL LUMBA R SPINE: CLINICAL INFORMATION: L2 S1 decompression, posterior COMPARISON: Earlier film same date, 1120 hours. TECHNIQUE: A single lateral mobile view of the lumbar spine was obtained following surgery performed by Dr. Loza. FINDINGS: Posterior lumbar fusion has been performed, with the pedicle screws and rods extending from L2 to S1. The lumbar vertebra are normally aligned. [facility] Wicho Heredia MD - 02/07/2022 MOBILE LATERAL LUMBAR SPINE: [...] Dr. Wicho Allen on 02/07/2022 2:28 PM [facility] [employer] Phone: ANION GAPon 01-23-2022 Anion gap [Moles/Vol] 10.0 mmol/L Normal 8.0-16.0 [facility] Comment on above: Result Comment: ANIO N GAP = Sodium -(Chloride + CO2) Performed By: #### P OCGL #### [facility] [address] [place] [address] APTTon 01-23-2022 aPTT Coag (Bld) [Time] 35.1 s Normal 22.0-38.0 [facility] Comment on above: Result Comment: Ther apeutic Heparin Reference Range= 60-95 seconds (corresponds to 0.3 to 0.7 u/mL Anti-Xa factor activity) Performed By: #### C BCND, PT, APTT, BMP, ANION, EGFR1 #### [employer] [address] [place] [address] BASIC METABOL PANELon 2021 Calcium [Mass/Vol] 9.8 mg/dL Normal 8.5-10.5 [facility] Comment on above: Performed By: #### C BCND, PT, APTT, BMP, ANION, EGFR1 #### [employer] [facility] [employer] [address] [place] [address] Chloride [Moles/Vol] 104 mmol/L Normal 98-111 [facility] Comment on above: Performed By: #### C BCND, PT, APTT, BMP, ANION, EGFR1 #### [employer] [address] [place] [address] CO2 [Moles/Vol] 29 mmol/L Normal 23-[address] [facility] Comment on above: Performed By: #### C BCND, PT, APTT, BMP, ANION, EGFR1 #### [employer] [address] [place] [address]273 Creatinine [Mass/Vol] 1.0 mg/dL Normal 0.4-1.2 [facility] Comment on above: Performed By: #### C BCND, PT, APTT, BMP, ANION, EGFR1 #### [employer] [address] [place] [address] Glucose [Mass/Vol] 87 mg/dL Normal 70-108 [facility] Comment on above: Performed By: #### C BCND, PT, APTT, BMP, ANION, EGFR1 #### [employer] [address] [place] [address] Potassium [Moles/Vol] 4.6 mmol/L Normal 3.5-5.2 [facility] Comment on above: Performed By: #### C BCND, PT, APTT, BMP, ANION, EGFR1 #### [place] [address] Sodium [Moles/Vol] 143 mmol/L Normal 135-145 [facility] Comment on above: Performed By: #### C BCND, PT, APTT, BMP, ANION, EGFR1 #### [place] [address] Urea nitrogen [Mass/Vol] 21 mg/dL Normal 7-22 [facility] Comment on above: Performed By: #### C BCND, PT, APTT, BMP, ANION, EGFR1 #### [place] [address] CBC NO DIFFERENTIALon 2021 Erythrocyte distribution width (RBC) [Ratio] 13.7 % Normal 11.5-14.5 [facility] Comment on above: Performed By: #### C BCND, PT, APTT, BMP, ANION, EGFR1 #### [place] [address] Hematocrit (Bld) [Volume fraction] 51.9 % Normal 42.0-52.0 [facility] Comment on above: Performed By: #### C BCND, PT, APTT, BMP, ANION, EGFR1 #### [place] [address] Hemoglobin (Bld) [Mass/Vol] 16.3 g/dL Normal 14.0-18.0 [facility] Comment on above: Performed By: #### C BCND, PT, APTT, BMP, ANION, EGFR1 #### [place] [address] MCH (RBC) [Entitic mass] 30.1 pg Normal 26.0-33.0 [facility] Comment on above: Performed By: #### C BCND, PT, APTT, BMP, ANION, EGFR1 #### [place] [address] MCHC (RBC) [Mass/Vol] 31.4 g/dL Low 32.2-35.5 [facility] Comment on above: Performed By: #### C BCND, PT, APTT, BMP, ANION, EGFR1 #### [place] [address] MCV (RBC) [Entitic vol] 95.8 fL High 80.0-94.0 [facility] Comment on above: Performed By: #### C BCND, PT, APTT, BMP, ANION, EGFR1 #### [place] [address] PLATELET 149 thou/mm3 Normal 130-400 [facility] Comment on above: Performed By: #### C BCND, PT, APTT, BMP, ANION, EGFR1 #### [place] [address] Platelet mean volume (Bld) [Entitic vol] 12.6 fL High 9.4-12.4 [facility] Comment on above: Performed By: #### C BCND, PT, APTT, BMP, ANION, EGFR1 #### [place] [address] RBC 5.42 mill/mm3 Normal 4.70-6.10 [facility] Comment on above: Performed By: #### C BCND, PT, APTT, BMP, ANION, EGFR1 #### [place] [address] RDW-SD 48.8 fL High 35.0-45.0 [facility] Comment on above: Performed By: #### C BCND, PT, APTT, BMP, ANION, EGFR1 #### [place] [address] WBC 5.8 thou/mm3 Normal 4.8-10.8 [facility] Comment on above: Performed By: #### C BCND, PT, APTT, BMP, ANION, EGFR1 #### [place] [address] EKG 12-LEADon 01-23-2022 EKG 12-LEAD 55 55 168 90 438 419 24 -23 Sinus bradycardia Otherwise normal ECG No previous ECGs available Confirmed by BALA SCHRADER MD ([id number]) on 01/23/2022 7:54:09 PM [email or web address] [id number]&Date=04-21-20 22&Time=11%3a32%3a52%3a00 &TestType=ECG&Site=3&Outp utType=PDF&Ext=PDF Normal [facility] GFR, ESTIMATEDon 01-23-2022 GFR/1.73 sq M.predicted MDRD (S/P/Bld) [Vol rate/Area] 75 mL/min/{1.73_m2} Abnormal [facility] Comment on above: Result Comment: Lilliam crum [...] 137-147. Performed By: #### P OCGL #### [employer] [address] [place] [address] HEMOGLOBIN A1Con 01-23-2022 Glucose [Mass/Vol] 99 mg/dL Normal 70-126 [facility] Comment on above: Performed By: #### C BCND, PT, APTT, BMP, ANION, EGFR1 #### [employer] [address] [place] [address] HbA1c (Bld) [Mass fraction] 5.3 % Normal 4.4-6.4 [facility] Comment on above: Performed By: #### C BCND, PT, APTT, BMP, ANION, EGFR1 #### [facility] [employer] [address] [place] [address] NASAL COMPLETE SCREEN RT-PCR on 01-23-2022 MRSA SCREEN RT-PCR Positive Abnormal [facility] Comment on above: Result Comment: MRSA TARGET DNA DETECTED by Real Time - Polymerase Chain Reaction. A positive test result does not necessarily indicate the presence of viable organisms. It is, however, presumptive for the presence of MRSA DNA. . Performed By: #### P OCGL #### [facility] [address] [place] [address] SA SCREEN RT-PCR Positive Abnormal [facility] Comment on above: Result Comment: Stap hylococcus aureus (SA) target DNA DETECTED by Real Time - Polymerase Chain Reaction. A positive test result does not necessarily indicate the presence of viable organisms. It is, however presumptive for the presence of SA DNA. Performed By: #### P OCGL #### [facility] [address] [place] [address] PROTHOMBIN TIMEon 01-23-2022 INR Coag (Bld) [Relative time] 1.06 {INR} Normal 0.85-1.13 [facility] Comment on above: Result Comment: ---- -----INDICATION INR Reference Range DVT, PE, AF, AMI, tissue heart valve 2.0 to 3.0 Mechanical prosthetic valves 2.5 to 3.5 Performed By: #### C BCND, PT, APTT, BMP, ANION, EGFR1 #### [address] [address] [facility] CARDIAC STRESS/REST INJE CTIONon 09-05-2021 [facility] CARDIAC STRESS/REST INJECTION Patient Name: ALISIA CORREA STUDY: MYOCARDIAL PERFUSION STRESS TEST WITH LEXISCAN Performing facility: [facility], [address] [place] [address], [address], [place] [address] [facility] Provider: Ren Watson MD, FACC PCP: Dr. Ellen Crabtree Supervising provider: Milagros Mcnally MD, FACC INDICATION: Chest Pain; Dyspnea HISTORY: Gender: M; Age: 60 y/o ; Height: 0 cm; Weight: 0 kg. High Cholesterol; Chest Pain; Syncope; Parkinson's Currently smoking. COMPARISON: Previous nuclear testing completed at [facility]. ACCESSION NUMBER(S): [id number]; [id number]; [id number] ORDERING CLINICIAN: REN WATSON TECHNIQUE: ONE DAY [...] Electronically signed by: REN WATSON MD Normal [facility] No Panel Informationon 09-05 Normal -[facility] [address] [place] Work Phone: Office Visit [...] we can help. You may also call 4-164-KMECPrairieSmartsNOW for free resources and assistance.; Status:Complete - Retrospective Authorization; Done: 16Aug2021 Tobacco Use Screening; Status:Complete; Done: 16Aug2021 Patient Instructions By signing my name below, Meghana Yañez LPN, Scribe, attest that this documentation has [...] of Parkinson's disease followed by neurology from [place] on medical therapy. The patient has been [...] normal sinus rhythm with no acute changes. Assessment/recommendation s: 1?syncope that is likely related to Parkinson's [...] PCP. 7?Parkinson's disease followed by neurology from [place]. 8?obesity, encouraged the patient to reduce caloric consumption 9?possible PAD, patient is following up with podiatry Surgical History Problems History of Back surgery x 8 History of Complete colonoscopy Managed By: Dorian Ordonez MD (Gastroenterology) History of Ear surgery reconstruction History of Gastric bypass surgery History of Hand surgery x 3 - right History of Hip replacement bilateral History of Knee replacement x 3 History of Lymph node surgery right neck History of Rotator cuff repair x 2 right History o (more content not included)... Normal [employer] Tobacco Screening.on 021 Fall risk assessment b) One or more fall s in the last year -[facility] [address] DO Work Phone: Tobacco use status [facility] a) Yes MP-[facility] [address] DO Work Phone: Tobacco Screening. Yes -[facility] [address] DO Work Phone: CT C-SPINE W RECON DATA -NBo n 09-17-2020 CT C-SPINE W RECON DATA -NB * * *Final Report* * * DATE OF EXAM: Sep 17 2020 12:01PM [facility] 0478 - CT C-SPINE W [...] Counting reference: Craniocervical junction. Anatomic Variants: None. [employer] (topogram) images: Postop changes of the bland. [...] vertebrae with counting from the craniocervical junction. 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 Essentially normal noncontrast CT brain. Sales Trainee: [facility] Transcribe Date/Time: Sep [...] DATE OF EXAM: Sep 17 2020 12:01PM [facility] 0024 - CTA NECK W [...] Applicable Spot Sign Number: Not Applicable NECK: Gas Adjuster (topogram) images: Postop changes of ACDF at [...] neck arteries. Essentially normal noncontrast CT brain. Sales Trainee: PSCB Transcribe Date/Time: Sep 17 2020 11:56A Dictated by : NICO MARTIN MD This examination was interpreted and the report reviewed and electronically signed by: NICO MARTIN MD on Sep 17 2020 12:09PM EST [id number] [facility] PROGRESSon 09-17-2020 PROGRESS HNO ID: [id number] Author: NIKKIE Brownlee Service: Radiology Author Type: Clinical Dock Clerk Type: Progress Notes Filed: 09/17/2020 11:40 AM [...] 2020 11:39 AM [facility] [place] 09-11[facility]2020 CNPN Telephone (AVXRPR) ----- ALISIA CORREA ([id number]) 1960 M Date Time Provider Department 09/11/20 MAKI JEONG During your visit today, we recorded the [...] % LOTION Apply to affected area twice* CLOTRIMAZOLE-BETAMETHASON E 1 * Apply to affected area twice* [...] More... Hyperlipidemia [E78.5] 12/07/2017 More... Ulcerative lesion [RTS9669] 12/07/2017 07/21/2019 Shoulder arthritis [M19.019] 12/29/2017 Status [...] [place] CT LUMBAR SPINE WO IVCONon 1 [facility] No Panel Informationon 06-[address] [facility] [address] THORACIC SPINE WO IVCONon 06-15-2020 [facility] ALLIED HEALTHon 05-04-2020 ALLIED HEALTH HNO ID: [id number] Author: Daniela (Rn) ALFONSO Castro Service: Infection Prevention Author Type: Registered Nurse Type: Allied Health Filed: 05/04/2020 8:19 AM Note Text: ISOLATION NOTE Admission Date: 05/03/2020 Type of Isolation Recommended: Contact Precautions ([place] Isolation Sign) Indication: Carbapenem-resistant Enterobacteriaceae (CRE) Date Isolation Initiated: 05/04/2020 Anticipated Duration of Isolation: Duration of hospitalization Type and Date of Positive Test(s): urine culture 10/18/2019 SIGNATURE: Daniela Castro RN MSN PATIENT NAME: Alisia Correa DATE: May 04, 2020 TIME: 8:17 AM PAGER/CONTACT #: [phone] Normal [facility] Basic Metabolic Panlon 05-04 Anion gap [Moles/Vol] 8 mmol/L Low 9-18 [facility] Calcium [Mass/Vol] 8.4 mg/dL Low 8.5-10.2 [facility] Chloride [Moles/Vol] 103 mmol/L Normal 97-105 [facility] CO2 [Moles/Vol] 25 mmol/L Normal 22-30 [facility] Creatinine [Mass/Vol] 1.11 mg/dL Normal 0.73-1.22 [facility] eGFR- Amer. >60 Normal [facility] GFR/1.73 sq M predicted among [...] ospital Comment on above: Result Comment: The [place] Diabetes Association (ADA) provides guidance for cutoff [...] Standards of Medical Care in Diabetes 2016, [place] [employer] Association. Diabetes Care. 2016.39(Suppl 1). Potassium [Moles/Vol] 4.1 mmol/L Normal 3.7-5.1 [facility] Sodium [Moles/Vol] 136 mmol/L Normal 136-144 [facility] ospital Urea nitrogen [Mass/Vol] 16 mg/dL Normal 9-24 [facility] CASE MANAGEMon 05-04-2020 CASE MANAGEM HNO ID: [id number] Author: Ashley (Rn) ALFONSO Sands Service: Care Management Author Type: Registered Nurse Type: Care Mgt Progress Note Filed: 05/04/2020 11:01 AM Note Text: CARE MANAGEMENT PROGRESS NOTE SERVICE DATE: 05/04/2020 SERVICE TIME: 10:59 AM LOS: 0 days Spoke with Titi at [facility] outpatient PT. Appointment scheduled for Monday 05/07 at 1:30 PM. Patient to arrive 15 minutes early. Patient notified. SIGNATURE: Ashley Sands RN PATIENT NAME: Alisia Correa DATE: May 04, 2020 TIME: 10:59 AM PAGER/CONTACT #: [phone] [facility] CASE MGT INIT 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 Last discharge within 30 days: No Advance Directive: Current Advance Directive: Health Care Power of Cleaning Crew Member;Living Will In Chart: No Medical Biller Coder Attempted to Assist with AD Completion: Yes [...] Care?: None Equipment Prior to Admission: Tub bench/chair;Walker;Elevat ed toilet seat;Cane SOCIAL: Living Arrangements: Home Lives With: Spouse Financial Resources: RetiredPrimary Contact: Extended Emergency Contact Information Primary Emergency Contact: Dipti Correa Address: [address] [place] [address] OF [facility] Mobile Relation: Spouse Supportive Patient Contact:: Yes [...] for meeting these needs: Outpatient therapy at [facility] Patient's perception of need for this admission: hip replacement Medication Adherance I am convinced of the importance of my prescription medication: 0 - Agree Completely I worry that my prescription medication will do more harm than good to me : 0 - Disagree Completely I feel financially burdened by my [id number] expenses for my prescription medication:: 0 - Disagree Completely Risk Score: 0 Patient is categorized as: Low risk < 2 Are you interested in bedside delivery of your medications? Yes Is Patient Psychosocially Complex?: No ASSESSMENT AND PLAN: Medical Needs: Medical Needs: None Psychosocial Needs: Psychosocial Needs: None FREEDOM OF CHOICE EXPLAINED: [place] of Choice Given: No Reason Not Given: No placements necessary POTENTIAL TRANSITION PLANS Outpatient Therapy Pt from home with spouse. Plan is Outpatient PT at [facility]. Patient does not have an appointment. Call placed to [facility] to schedule appointment. Waiting for return call. SIGNATURE: Ashley Sands RN PATIENT NAME: Alisia Correa DATE: May 04, 2020 TIME: 10:14 AM PAGER/CONTACT #: [phone] Normal [facility] CBCon 05-04-2020 Absolute nRBC <0.01 Normal <0.01 [facility] al Erythrocyte distribution width (RBC) [Ratio] 14.1 % Normal 11.5-15.0 [facility] Hematocrit (Bld) [Volume fraction] 39.3 % Normal 39.0-51.0 [facility] Hemoglobin (Bld) [Mass/Vol] 12.6 g/dL Low 13.0-17.0 [facility] MCH (RBC) [Entitic mass] 30.1 pG Normal 26.0-34.0 [facility] MCHC (RBC) [Mass/Vol] 32.1 g/dL Normal 30.5-36.0 [facility] MCV (RBC) [Entitic vol] 94.0 fL Normal 80.0-100.0 [facility] Platelet mean volume (Bld) [Entitic vol] 12.8 fL High 9.0-12.7 [facility] l Platelets (Bld) [#/Vol] 134 10*3/uL Low 150-400 [facility] RBC (Bld) [#/Vol] 4.18 10*6/uL Low 4.20-6.00 [facility] WBC (Bld) [#/Vol] 7.60 10*3/uL Normal 3.70-11.00 [facility] NURSING PROGon 05-04-2020 NURSING PROG HNO ID: [id number] Author: Renae (Rn) ALFONSO Greco Service: ? [...] [facility] PLAN OF CAREon 05-04-2020 PLAN OF CARE HNO ID: [id number] Author: Rita Arias (Grievance Coordinator) Service: ? Author Type: ? Type: Plan [...] Generic drug: linaclotide LOTRISONE cream Generic drug: clotrimazole-betamethason e LYRICA 300 mg capsule Generic drug: pregabalin [...] Take 1 tablet by mouth every evening. sulfamethoxazole-trimetho prim 800-160 mg per tablet Commonly known as: [...] ointment Commonly known as: BACTROBAN Rita Arias ([place]) PAGER: yvan May 04, 2020 4:29 PM [facility] PROGRESSon 05-04-2020 PROGRESS HNO ID: [id number] Author: Steven Guevara Jr. Service: Orthopaedic Surgery [...] Complication, Without Long-Term Current Use of Insulin ([facility]) Chronic Pain Syndrome Copd With Chronic Bronchitis ([facility]) Arthritis of Knee Primary Osteoarthritis of Right [...] Gammopathy of Unknown Significance) Pd (Parkinson's Disease) ([facility]) Dysphagia Psychosis Due to Parkinson's Disease ([facility]) Osteoarthritis of Left Hip Open Wound of Left Heel Megaloblastic Anemia Due to Vitamin B12 Deficiency Tobacco Use Unspecified Sleep Apnea Acute Cystitis Without Hematuria Osteoarthritis of Right Hip Medication and Non-Pharmacologic VTE Prophylaxis/Anticoagulant s Anticoagulant AND Antiplatelet Medications (From admission, onward) Start Dose Route Frequency Ordered Stop 05/04/20 0900 aspirin, enteric coated 81 mg tab(s) (Surgical Risk Categories ) 81 mg ORAL 2 TIMES DAILY 05/03/20 1751 -- 05/03/20 1800 pneumatic compression stockings (ga,ri) 05/03/20 1800 graduated compression stockings ([place], [place]) 05/03/20 1800 activity - mobilize patient (ga,ri) 05/03/20 1800 activity - mobilize patient (ga,ri) 05/03/20 1800 activity - mobilize patient (ga,oh) VTE Prophylaxis: VTE prophylaxis appropriate POST OPERATIVE COMPLICATIONS: Complicated by: uneventful/none SIGNATURE: Steven Guevara Jr, MD PATIENT NAME: Alisia Corera DATE: May 04, 2020 TIME: 7:54 AM PAGER/CONTACT #: [phone] [facility] THERAPY NTon 05-04-2020 THERAPY NT HNO ID: [id number] Author: Massiel JerryPt) ALBA Russell Service: Physical Therapy Author Type: Physical Therapist Type: Therapy (PT/OT/Speech/Resp) Filed: 05/04/2020 11:30 AM Note Text: Physical Therapy Evaluation SERVICE DATE: 05/04/2020 SERVICE TIME: 1008 to 1050 ROOM: [place] [address] Recommended Discharge Disposition: Outpatient Physical Therapy Anticipated Discharge Needs: Physical Assist at Home Physical Assist at Home for: Cleaning;Laundry;Medicati on Management;Shopping;Trans portation Recommended Discharge Equipment: No equipment needs anticipated [...] met Plan of Care developed with: Patient(d/w nsg and CM as well) TREATMENT INTERVENTIONS: Therapy Diagnosis: Reduced mobility-other Interventions Provided: Evaluation;Therapeutic Exercise (02248);Therapeutic Activity (48733);Gait Training (20563) $ Evaluation-Moderate (59167) Billed Units: 1 unit Therapeutic Exercise (57239) Treatment Minutes: 6 Skilled Intervention(s): Instruction in therapeutic exercise per THR protocol: AP, QS, GS, HS, abd, LAQ Verbal and tactile cuing provided for each. Written handouts provided and reviewed with patient today Therapeutic Activity (25232) Treatment Minutes: 10 1 unit Skilled Intervention(s): [...] 2/3 precautions without cues today Gait Training (70951) Treatment Minutes: 11 1 unit Skilled Intervention(s): [...] Environment Patient Lives With: Spouse Assistance Available: realtime reporter(spouse works timekeeping supervisor but workplace is nearby and flexib ) Entry To Home: With Rail;Stairs Number Of Stairs Into Home: 2 Number Of Stairs To Bed/Bath: 1st floor bed and bath Tub/Shower Type: WIS with shower chair, grab bars, HHS Laundry: 1ST FLOOR Equipment Owned: Cane;Hand Held Shower;Grab Bars-Shower;Standard Walker;Commode-Raised;Tammy wer Chair;Lift Chair;ADL Kit;Field Operations Coordinator;Wheeled Walker Prior Functional Level: Within Functional Limits Prior Functional Level 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 SIGNATURE: Massiel Russell PT PATIENT NAME: Alisia Correa DATE: May 04, 2020 TIME: 11:21 AM Normal [facility] THERAPY NT HNO ID: [id number] Author: Nusrat JerryOt/LSajan Gallegos Service: Occupational Therapy Author Type: Occupational Therapist Type: Therapy (PT/OT/Speech/Resp) Filed: 05/04/2020 1:20 PM Note Text: Occupational Therapy SERVICE DATE: 05/04/2020 SERVICE TIME: 3865 to 1251 ROOM: [place] [address] Recommended Discharge Disposition: Home Anticipated Discharge Needs: Physical Assist at Home Physical Assist at Home for: Cleaning;Laundry;Self Care;Transportation;Shopp ing Recommended Discharge Equipment: (Patient has ADL kit) [...] of daily living (ADL) Interventions Provided: Evaluation;Self Senior Living Management (80127) $ Evaluation-Low (99653) Billed Units: 1 unit Self Senior Living Management (32564) Treatment Minutes: 51 3 units Skilled Intervention(s): [...] car transfer with instructions given to have school bus driver/mechanic (as Patient is not allowed to drive) [...] Environment Patient Lives With: Spouse Assistance Available: realtime reporter(spouse works timekeeping supervisor but workplace is nearby and [facility]) Entry To Home: With Rail;Stairs Number Of Stairs Into Home: 2 Number Of Stairs To Bed/Bath: 1st floor bed and bath Tub/Shower Type: WIS with shower chair, grab bars, HHS Laundry: 1ST FLOOR Equipment Owned: Cane;Hand Held Shower;Grab Bars-Shower;Standard Walker;Commode-Raised;Tammy wer Chair;Lift Chair;ADL Kit;Field Operations Coordinator;Wheeled Walker Prior Functional Level: Within Functional Limits Prior Functional Level 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 SIGNATURE: Nusrat Gallegos OT/L PATIENT NAME: Alisia Correa DATE: May 04, 2020 TIME: 1:08 PM [facility] ANES POSTPROC EVALon 020 ANE POSTPROC EVAL HNO ID: [id number] Author: Jac Leon Service: ? Author Type: Physician Type: Anesthesia Postprocedure Evaluation Filed: 05/03/2020 4:28 PM Note Text: POST ANESTHESIA EVALUATION NOTE : 1960 Procedure Summary Date: 05/03/20 Room / Location: OR01 / AV OR Anesthesia Start: 1245 Anesthesia Stop: 1546 [...] May 03, 2020 TIME: 4:28 PM CSN: [id number] [facility] ANES PRE-OPon 05-03-2020 ANES PRE-OP HNO ID: [id number] Author: Coreen Ryan Service: ? Author Type: [...] Apply to affected area twice daily. - clotrimazole-betamethason e (LOTRISONE) cream Apply to affected area twice [...] only when has stomach upset ) - MULTIVIT-MIN/FA/LYCOPEN/L UTEIN (CENTRUM SILVER ULTRA MEN'S ORAL) Take 1 [...] May 03, 2020 TIME: 10:37 AM CSN: [id number] Normal [facility] Basic Metabolic Panlon 05-03 Anion gap [Moles/Vol] 8 mmol/L Low 9-18 [facility] Calcium [Mass/Vol] 8.7 mg/dL Normal 8.5-10.2 [facility] Chloride [Moles/Vol] 105 mmol/L Normal 97-105 [facility] CO2 [Moles/Vol] 25 mmol/L Normal 22-30 [facility] Creatinine [Mass/Vol] 1.20 mg/dL Normal 0.73-1.22 [facility] eGFR- Amer. >60 Normal [facility] GFR/1.73 sq M predicted among [...] GFR. Glucose [Mass/Vol] 107 mg/dL High 74-99 [facility] Comment on above: Result Comment: The [place] Diabetes Association (ADA) provides guidance for cutoff [...] Standards of Medical Care in Diabetes 2016, [place] Diabetes Association. Diabetes Care. 2016.39(Suppl 1). Potassium [Moles/Vol] 4.3 mmol/L Normal 3.7-5.1 [facility] Sodium [Moles/Vol] 138 mmol/L Normal 136-144 [facility] ospital Urea nitrogen [Mass/Vol] 18 mg/dL Normal 9-24 [facility] CBCon 05-03-2020 Absolute nRBC <0.01 Normal <0.01 [facility] al Erythrocyte distribution width (RBC) [Ratio] 14.1 % Normal 11.5-15.0 [facility] Hematocrit (Bld) [Volume fraction] 43.9 % Normal 39.0-51.0 [facility] Hemoglobin (Bld) [Mass/Vol] 14.3 g/dL Normal 13.0-17.0 [facility] MCH (RBC) [Entitic mass] 30.2 pG Normal 26.0-34.0 [facility] MCHC (RBC) [Mass/Vol] 32.6 g/dL Normal 30.5-36.0 [facility] MCV (RBC) [Entitic vol] 92.8 fL Normal 80.0-100.0 [facility] Platelet mean volume (Bld) [Entitic vol] 11.7 fL Normal 9.0-12.7 [facility] l Platelets (Bld) [#/Vol] 145 10*3/uL Low 150-400 [facility] RBC (Bld) [#/Vol] 4.73 10*6/uL Normal 4.20-6.00 [facility] WBC (Bld) [#/Vol] 9.79 10*3/uL Normal 3.70-11.00 [facility] CONSULTon 05-03-2020 CONSULT HNO ID: [id number] Author: Henry Collins Service: Hospital Medicine Author Type: Physician Type: Consults Filed: 05/03/2020 8:50 PM Note Text: DEPARTMENT OF HOSPITAL MEDICINE INITIAL CONSULT SERVICE DATE: 05/03/2020 SERVICE TIME: 7:44 PM Primary Care Physician: Ellen Crabtree, DO NIGHT AND WEEKEND COVERAGE: KARELY COVERAGE: Days: [phone], please contact day attending provider ( please page admission pager [phone] to find out day attending provider for [...] Laterality Date - COLONOSCOP W/ OR W/O [facility] SPEC Colonoscopy - EGD W/O [...] , Rfl: , 05/02/2020 at Unknown time sulfamethoxazole-trimetho prim (BACTRIM DS) 800-160 mg per tablet, Take [...] affected area twice daily., Disp: , Rfl: clotrimazole-betamethason e (LOTRISONE) cream, Apply to affected area twice [...] , Rfl: 0, Unknown at Unknown time MULTIVIT-MIN/FA/LYCOPEN/L UTEIN (CENTRUM SILVER ULTRA MEN'S ORAL), Take 1 [...] visit: Most recent labs and imaging results. Impression/Recommendation s Principal Problem: Osteoarthritis of right hip POA: [...] NURSING PROGon 05-03-2020 NURSING PROG HNO ID: [id number] Author: Renae (Rn) ALFONSO Greco Service: ? Author Type: Registered Nurse Type: Nursing Progress Note Filed: 05/03/2020 7:58 PM Note Text: Nursing Progress Note Patient Name: Alisia Correa [facility] Daily Note: Received pt from PACU in stable condition at 1745. Bilateral ppp, toes warm and mobile, denies numbness or tingling, Abductor pillow in place. Vitals stable. Will monitor. This note was completed by: Renae Greco RN [facility] OPERATIVE NOon 05-03-2020 OPERATIVE NO HNO ID: [id number] Author: Steven Guevara Jr. Service: Orthopaedic Surgery Author Type: Physician Type: Operative Report Filed: 05/03/2020 3:08 PM Note Text: [facility] OPERATIVE REPORT PATIENT NAME: Alisia Correa AGE: [age] year old LOG ID: [id number] Surgery Date: 05/03/2020 SURGEON: Steven Guevara M.D. IMPORT DISPATCHER: Vj Jorge PA-C, his assistance consisted of [...] banked allogenic blood if medically necessary. IMPLANTS: [employer] Total Hip System SIZE TYPE Acetabulum [...] Proximal femoral osteotomy was performed. The box liner osteotome was utilized to lateralize the starting [...] [facility] PRO[facility] 05-03-2020 PROGRESS HNO ID: [id number] Author: Steven Guevara Jr. Service: Orthopaedic Surgery Author Type: Physician Type: Progress Notes Filed: 05/03/2020 8:02 AM Note Text: The patient was offered a surgery/procedure at a [facility] facility. The surgeon/proceduralist and patient have discussed in [...] the consent form. [facility] PROGRESS HNO ID: [id number] Author: Tracey Yañez (Rt) Bill Service: Radiology Author Type: Dock Clerk Type: Progress Notes Filed: 05/03/2020 4:01 PM [...] 2020 4:01 PM [facility] PT EDon 05-03-2020 PT ED HNO ID: [id number] Author: Kaylee (Rn) ALFONSO Sunshine Service: ? Author Type: Registered [...] originated from [facility] Specimen #: [id number] Submitting Physician: STEVEN GUEVARA JR, MD FINAL DIAGNOSIS Femoral head, right, arthroplasty - Degenerative joint disease. OSWALDO/KELVIN/td 05/08/2020 Billy Her MD (Electronic Signature) SPECIMEN [...] reamings. The additional tissue appears grossly unremarkable. Hybrid Corn Breeder sections are submitted in formalin as follows: A1 soft tissue, A2 bone after a period of decalcification. ARH/adb 05/04/2020 Gross examination performed at [facility], [address] [place] [address] Date of Report: 05/09/2020 Date of Procedure: 05/03/2020 Date of Receipt: 05/03/2020 Submitted by: STEVEN GUEVARA JR, MD Location: [facility] Diagnostic interpretation performed at [facility], [address] [place] [address]. CLIA Number: [id number] Normal [facility] Reference Lab Comment on above: Performed By: [...] IMPRESSION: Status post hip arthroplasty, normal alignment Sales Trainee: ARPIT Transcribe Date/Time: May 03 2020 4:05P Dictated by : JUAN LUIS RUSSELL MD This examination was interpreted and the report reviewed and electronically signed by: JUAN LUIS RUSSELL MD on May 03 2020 4:07PM EST [id number] [facility] 05-02-2020 CNPN Telephone (AVPRAD) ----- ALISIA CORREA ([id number]) 1960 M Date Time Provider Department 05/02/20 VJ JORGE) AVPRAD During your visit today, we recorded the [...] Hives Date Reviewed: 04/24/2020 Reviewed by: Britney ([facility]) Trent - Fully Assessed Reason for Visit: [...] % LOTION Apply to affected area twice* CLOTRIMAZOLE-BETAMETHASON E 1 * Apply to affected area twice* [...] More... Hyperlipidemia [E78.5] 12/07/2017 More... Ulcerative lesion [RWF3393] 12/07/2017 07/21/2019 Shoulder arthritis [M19.019] 12/29/2017 Status [...] NURSING PROGon 04-25-2020 NURSING PROG HNO ID: [id number] Author: Niyah JerryRn) ALFONSO Golden Service: Anesthesiology Author Type: Registered [...] 04/24/2020 STAAMP: Date 04/12/2020 TYPE AND SCREEN: Date [place]: Date 12/13/2019 OTHER TEST: FERRITIN, Iron+TIBC, [...] (110.224 kg) Outpatient Medications as of 05/03/20: sulfamethoxazole-trimetho prim (BACTRIM DS) 800-160 mg per tablet mupirocin [...] mcg tablet urea (CARMOL) 40 % lotn clotrimazole-betamethason e (LOTRISONE) cream hydrOXYzine HCl (ATARAX) 50 mg tablet Aug Betamethasone Dipropionate (DIPROLENE) 0.05 % ointment magnesium hydroxide (MILK OF MAGNESIA) 400 mg/5 mL suspension budesonide-formoterol (SYMBICORT) 160-4.5 mcg/actuation inhaler DULoxetine (CYMBALTA) 60 mg capsule sucralfate (CARAFATE) 1 gram tablet MULTIVIT-MIN/FA/LYCOPEN/L UTEIN (CENTRUM SILVER ULTRA MEN'S ORAL) amitriptyline 25 [...] of unknown significance) [D47.2] PD (Parkinson's disease) ([facility]) [G20] Dysphagia [R13.10] Psychosis due to Parkinson's [...] is scheduled for post-op Physical Therapy at [facility] ([phone])on 05/07/20 @ 2:45. They want patient to arrive 10 to 15 min early. Fax PT order to [phone]. Normal [facility] Basic Metabolic Panlon 11-09 Anion gap [Moles/Vol] 8 mmol/L Low 9-18 [facility] Calcium [Mass/Vol] 8.6 mg/dL Normal 8.5-10.2 [facility] Chloride [Moles/Vol] 101 mmol/L Normal 97-105 [facility] CO2 [Moles/Vol] 30 mmol/L Normal 22-30 [facility] Creatinine [Mass/Vol] 1.02 mg/dL Normal 0.73-1.22 [facility] eGFR- Amer. >60 Normal [facility] ospital GFR/1.73 sq M predicted among [...] GFR. Glucose [Mass/Vol] 110 mg/dL High 74-99 [facility] Comment on above: Result Comment: The [place] Diabetes Association (ADA) provides guidance for cutoff [...] Standards of Medical Care in Diabetes 2016, [place] [employer]. Diabetes Care. 2016.39(Suppl 1). Potassium [Moles/Vol] 4.1 mmol/L Normal 3.7-5.1 [facility] Sodium [Moles/Vol] 139 mmol/L Normal 136-144 [facility] ospital Urea nitrogen [Mass/Vol] 18 mg/dL Normal 9-24 [facility] CBCon 11-09-2019 [facility] nRBC <0.01 [facility] width (RBC) [Ratio] 13.7 % Normal 11.5-15.0 [facility] Hematocrit (Bld) [Volume fraction] 39.6 % Normal 39.0-51.0 [facility] Hemoglobin (Bld) [Mass/Vol] 12.5 g/dL Low 13.0-17.0 [facility] [facility] MCH (RBC) [Entitic mass] 30.2 pG Normal 26.0-34.0 [facility] MCHC (RBC) [Mass/Vol] 31.6 g/dL Normal 30.5-36.0 [facility] MCV (RBC) [Entitic vol] 95.7 fL Normal 80.0-100.0 [facility] Platelet mean volume (Bld) [Entitic vol] 11.8 fL [facility].0[facility]7 [facility] Platelets (Bld) [#/Vol] 129 10*3/uL Low 150-400 [facility] RBC (Bld) [#/Vol] 4.14 10*6/uL Low 4.20-6.00 [facility] WBC (Bld) [#/Vol] 6.62 10*3/uL Normal 3.70-11.00 [facility] CONSULT PROGon 11-09-2019 CONSULT PROG HNO ID: [id number] Author: Lenora Alarcon Service: Hospital Medicine Author [...] Associate Staff, Department of Hospital Medicine Clinical Ball Fringe Machine Operatoradministrative nursing supervisor [facility] Medicine, [facility] Pager [phone] / [phone] [facility] NURSING PROGon 11-09-2019 NURSING PROG HNO ID: [id number] Author: Renae (Rn) ALFONSO Greco Service: ? Author Type: Registered Nurse Type: Nursing Progress Note Filed: 11/09/2019 8:43 PM Note Text: Nursing Progress Note Patient Name: Alisia Correa Patient Location: [facility]/ Daily Note: Pt up in chair awake [...] CAREon 11-09-2019 PLAN OF CARE HNO ID: [id number] Author: Rita Arias (Grievance Coordinator) Service: ? Author Type: Dock Clerk Type: Plan of Care Filed: 11/09/2019 10:31 AM Note Text: COST REDUCTION ENGINEER BEDSIDE DELIVERY SURVEY 1. Patient to use [facility] Bedside Delivery - NO prefer own pharmacy Insurance Information as follows: 2. Insurance card on file - N/A 3. Credit card for payment - N/A [facility] PROGRESSon 11-09-2019 PROGRESS HNO ID: [id number] Author: Demetris Naik Service: ? Author Type: Physician Court Registry Officer Type: Progress Notes Filed: 11/09/2019 7:49 AM [...] discharge planning-plan for DC home today with [facility] if independent with physical therapy ACTIVE PROBLEM [...] Complication, Without Long-Term Current Use of Insulin ([facility]) Chronic Pain Syndrome Copd With Chronic Bronchitis ([facility]) Arthritis of Knee Primary Osteoarthritis of Right Knee Oa (Osteoarthritis) of Knee Glenohumeral Arthritis, Left Essential Tremor Asthma Diabetes Mellitus ([facility]) Essential Hypertension Hyperlipidemia Shoulder Arthritis Status Post Replacement of Left Shoulder Joint Crps (Complex Regional Pain Syndrome Type I) Nicotine use disorder, F17.2 Obesity, Class I, Bmi 30-34.9 Multilevel Spine Pain Iron Deficiency Anemia Secondary to Inadequate Dietary Iron Intake Complete Tear of Right Rotator Cuff Spinal Cord Stimulator Status Mgus (Monoclonal Gammopathy of Unknown Significance) Pd (Parkinson's Disease) ([facility]) Dysphagia Psychosis Due to Parkinson's Disease ([facility]) Osteoarthritis of Left Hip Open Wound of Left Heel Medication and Non-Pharmacologic VTE Prophylaxis/Anticoagulant s Anticoagulant AND Antiplatelet Medications (From admission, onward) Start Dose Route Frequency Ordered Stop 11/09/19 0900 aspirin, enteric coated 81 mg tab(s) (Surgical Risk Categories ) 81 mg ORAL 2 TIMES DAILY 11/08/19 1300 -- 11/09/19 0000 aspirin, enteric coated (ASPIRIN, ENTERIC COATED) 81 mg EC tablet 81 mg ORAL 2 TIMES DAILY 11/09/19 0747 -- 11/08/19 1315 pneumatic compression stockings (ga,oh) 11/08/19 1315 graduated compression stockings (ga,oh) 11/08/19 1315 graduated compression stockings (ga,oh) 11/08/19 1315 activity - mobilize patient (ga,ri) 11/08/19 1315 activity - mobilize patient (ga,oh) 11/08/19 1315 activity - mobilize patient (ga,ri) VTE Prophylaxis: VTE prophylaxis appropriate POST OPERATIVE COMPLICATIONS: Complicated by: uneventful/none SIGNATURE: Demetris Naik PA-C PATIENT NAME: Alisia Correa DATE: November 09, 2019 TIME: 7:48 AM PAGER/CONTACT #: [phone] [facility] PT EDon 11-09-2019 PT ED HNO ID: [id number] Author: Shelley Givens (Pharmacist) Service: Pharmacy Author [...] restate information and Indicates understanding of topic ÁLVARO HUSAIN [facility] PT ED HNO ID: [id number] Author: Shelley Givens (Pharmacist) Service: Pharmacy Author [...] that warrant a call to the physician. ÁLVARO HUSAIN November 09, 2019 10:33 AM Medication List [...] Generic drug: linaclotide LOTRISONE cream Generic drug: clotrimazole-betamethason e LYRICA 300 mg capsule Generic drug: pregabalin [...] These medications were sent to e- [facility]-INTERNAL [place] [address] [facility] - [phone] [address] [facility] [address] ? aspirin, enteric coated 81 mg EC tablet ? oxyCODONE IR 5 mg immediate release tablet You can get these medications from any pharmacy You don't need a prescription for these medications ? acetaminophen 325 mg tablet Normal [facility] THERAPY on 11-09-2019 THERAPY NT HNO ID: [id number] Author: Katharina JerryOtSajan Moser Service: Occupational Therapy Author Type: Occupational Therapist Type: Therapy (PT/OT/Speech/Resp) Filed: 11/09/2019 2:29 PM Note Text: Occupational Therapy Evaluation SERVICE DATE: 11/09/2019 SERVICE TIME: 0850 to 0946 ROOM: [place] [address] Recommended Discharge Disposition: Home Anticipated Discharge Needs: Physical Assist at Home;Equipment Physical Assist at Home for: Transportation;Shopping;S tairs;Meals;Laundry;Clean ing OT Recommendations to Nursing: To Bathroom for [...] Education;Self Care / Home Management;Energy Conservation Training;Joint Mobility;Strengthening;Fu nctional Mobility Training;Balance Training Plan of Care developed with: Patient TREATMENT INTERVENTIONS: Therapy Diagnosis: Reduced mobility-other;Decreased activities of daily living (ADL);Muscle Weakness (generalized) Interventions Provided: Evaluation;Self Senior Living Management (62997) $ Evaluation-Low (69703) Billed Units: 1 unit Self Senior Living Management (95003) Treatment Minutes: 38 3 units Skilled Intervention(s): [...] body dressing. Instructions and demonstration with a twisting operator, sock aide, dressing stick and long [...] FLOOR Equipment Owned: Cane;Hand Held Shower;Grab Bars-Shower;Standard Walker;Commode-Raised;Tammy wer Chair;Lift Chair;ADL Kit Prior Functional Level: Within [...] TIME: 12:33 PM [facility] THERAPY NT HNO ID: [id number] Author: Oumou JerryPtSajan Mccarthy Service: Physical Therapy Author Type: Physical Therapist Type: Therapy (PT/OT/Speech/Resp) Filed: 11/09/2019 2:56 PM Note Text: Physical Therapy Treatment SERVICE DATE: 11/09/2019 SERVICE TIME: 1105 to 1150 ROOM: [place] [address] Recommended Discharge Disposition: Outpatient Physical Therapy Anticipated Discharge Needs: Physical Assist at Home;Equipment Physical Assist at Home for: Transportation;Shopping;S tairs;Meals;Laundry;Clean ing Recommended Discharge Equipment: No equipment needs anticipated [...] week): 7 Current admission Treatment Interventions: Education;Joint Mobility;Strengthening;Fu nctional Mobility Training Plan of Care developed with: Patient TREATMENT INTERVENTIONS: Therapy Diagnosis: Reduced mobility-other Interventions Provided: Gait Training (60103);Therapeutic Exercise (11342) Therapeutic Exercise (18001) Treatment Minutes: 15 1 unit Skilled Intervention(s): [...] 3x/day, 2 sets for 10 Gait Training (24849) Treatment Minutes: 30 2 units Skilled Intervention(s): [...] FLOOR Equipment Owned: Cane;Hand Held Shower;Grab Bars-Shower;Standard Walker;Commode-Raised;Tammy wer Chair;Lift Chair;ADL Kit Prior Functional Level: Within [...] in chair) Strength: WFL Except(L hip <3/5) JH-HLM: 7: Walk 25 feet or more Please see discipline specific clinical documentation flowsheet for complete details for this therapy evaluation/treatment. SIGNATURE: Oumou Mccarthy PT PATIENT NAME: Alisia Correa DATE: November 09, 2019 TIME: 2:52 PM [facility] ANES Brian 11-08-2019 ANES POST HNO ID: [id number] Author: Ashley Guerrier Service: Anesthesiology Author Type: Physician Type: Anesthesia PostOp Filed: 11/08/2019 1:17 PM Note Text: POST ANESTHESIA EVALUATION NOTE SERVICE DATE: 11/08/2019 SERVICE TIME: 1316 : 1960 Vitals: 11/08/19 0823 11/08/19 1133 11/08/19 12111/08/19 1302 Temp: 36.2 ?C (97.2 ?F) 36.6 [...] ANES PREOPon 11-08-2019 ANES PREOP HNO ID: [id number] Author: Ashley Guerrier Service: Anesthesiology Author Type: [...] Gammopathy of Unknown Significance) Pd (Parkinson's Disease) ([facility]) Dysphagia Psychosis Due to Parkinson's Disease ([facility]) Osteoarthritis of Left Hip PAST MEDICAL HISTORY Diagnosis Date - Durbin's esophagus - Closed fracture of rib(s), unspecified Rib fracture - Diabetes ([facility]) - Esophageal reflux BARRETS ESOPHAGUS - Hypertrophy of prostate with urinary obstruction and other lower urinary tract symptoms (LUTS) Hypertrophy of the prostate with obstruction - Impotence, organic - Tremor - Unspecified asthma(493.90) - Unspecified sleep apnea Last 2003, pt was 380 lbs at that time - Urinary calculus, unspecified Renal stones PAST SURGICAL HISTORY Procedure Laterality Date - COLONOSCOP W/ OR W/O [facility] SPEC Colonoscopy - EGD W/O [...] 1 capsule by mouth once daily. - MULTIVIT-MIN/FA/LYCOPEN/L UTEIN (CENTRUM SILVER ULTRA MEN'S ORAL) Take 1 [...] Apply to affected area twice daily. - clotrimazole-betamethason e (LOTRISONE) cream Apply to affected area twice [...] November 08, 2019 TIME: 8:55 AM CSN: [id number] Normal [facility] Basic Metabolic Panlon 11-08 Anion gap [Moles/Vol] 11 mmol/L Normal 9-18 [facility] Calcium [Mass/Vol] 8.9 mg/dL Normal 8.5-10.2 [facility] Chloride [Moles/Vol] 106 mmol/L High 97-105 [facility] CO2 [Moles/Vol] 25 mmol/L Normal 22-30 [facility] Creatinine [Mass/Vol] 0.95 mg/dL Normal 0.73-1.22 [facility] eGFR- Amer. >60 Normal [facility] GFR/1.73 sq M predicted among [...] GFR. Glucose [Mass/Vol] 125 mg/dL High 74-99 [facility] Comment on above: Result Comment: The [place] Diabetes Association (ADA) provides guidance for cutoff [...] Standards of Medical Care in Diabetes 2016, [place] [employer]. Diabetes Care. 2016.39(Suppl 1). Potassium [Moles/Vol] 4.3 mmol/L Normal 3.7-5.1 [facility] Sodium [Moles/Vol] 142 mmol/L Normal 136-144 [facility] Urea nitrogen [Mass/Vol] 23 mg/dL Normal 9-24 [facility] CASE MGT INIT [facility] 2019 CASE MGT INIT [facility] ID: [id number] Author: Ashley JerryRn) ALFONSO Sands Service: Care Management Author Type: Registered Nurse Type: Care Mgt Initial Assessment Filed: 11/08/2019 3:02 PM Note Text: CARE MANAGEMENT: ASSESSMENT AND DISCHARGE PLAN SERVICE DATE: November 08, 2019 SERVICE TIME: 3:01 PM PRIMARY CARE PHYSICIAN: Ellen Crabtree DO ADMISSION STATUS: Extended Recovery Needs Prior to Discharge: OT/PT Evaluation MEDICAL: Patient/Hybrid Corn Breeder Stated Goals: To have reduction in pain;To have reduction in symptoms;To improve my functional status;To return home to life as it was Health Insurance: None Health Issues Impacting Discharge Plan: Newly diagnosed Newly Diagnosed: Hip Replacement Last Discharge Date: 03/17/18 Is this Within the Past 30 days? Last discharge within 30 days: No Advance Directive: Current Advance Directive: Health Care Power of Cleaning Crew Member;Living Will In Chart: No Medical Biller Coder Attempted to Assist with AD Completion: Yes [...] Information Primary Emergency Contact: Dipti Correa Address: [address] [place] [address] OF [facility] Mobile Relation: Spouse Contact Resources: Family [...] Completely I feel financially burdened by my yes-fd-clkdlp expenses for my prescription medication:: 0 - Agree Somewhat Risk Score: 0 Patient is categorized as: Low risk < 2 Are you interested in bedside delivery of your medications? Yes Is Patient Psychosocially Complex?: No ASSESSMENT AND PLAN: Medical Needs: Medical Needs: None Psychosocial Needs: Psychosocial Needs: None FREEDOM OF CHOICE EXPLAINED: [place] of Choice Given: No Reason Not Given: No placements necessary POTENTIAL TRANSITION PLANS Outpatient Therapy Patient has equipment. Patient is scheduled for outpatient therapy on 11/11 at [facility]. SIGNATURE: Ashley Sands RN PATIENT NAME: Alisia Correa DATE: November 08, 2019 TIME: 3:01 PM PAGER/CONTACT #: [phone] Normal [facility] CBCon 11-08-2019 Absolute nRBC <0.01 Normal <0.01 [facility] Erythrocyte distribution width (RBC) [Ratio] 13.9 % Normal 11.5-15.0 [facility] Hematocrit (Bld) [Volume fraction] 44.3 % Normal 39.0-51.0 [facility] Hemoglobin (Bld) [Mass/Vol] 14.2 g/dL Normal 13.0-17.0 [facility] MCH (RBC) [Entitic mass] 30.4 pG Normal 26.0-34.0 [facility] MCHC (RBC) [Mass/Vol] 32.1 g/dL Normal 30.5-36.0 [facility] MCV (RBC) [Entitic vol] 94.9 fL Normal 80.0-100.0 [facility] Platelet mean volume (Bld) [Entitic vol] 11.7 fL Normal 9.0-12.7 [facility] l Platelets (Bld) [#/Vol] 159 10*3/uL Normal 150-400 [facility] RBC (Bld) [#/Vol] 4.67 10*6/uL Normal 4.20-6.00 [facility] WBC (Bld) [#/Vol] 10.50 10*3/uL Normal 3.70-11.00 [facility] CONSULTon 11-08-2019 CONSULT HNO ID: [id number] Author: SHRAVAN Christian Service: Hospital Medicine Author Type: Physician Court Registry Officer Type: Consults Filed: 11/08/2019 2:36 PM Note Text: DEPARTMENT OF HOSPITAL MEDICINE INITIAL CONSULT SERVICE DATE: 11/08/2019 SERVICE TIME: 1:14 PM Primary Care Physician: Ellen Crabtree, DO NIGHT AND WEEKEND COVERAGE: Days: [phone], please page me for patient issues. Nights: [phone], please page [facility] Hospitalist Night coverage pager [phone] REASON FOR CONSULT: Medical Management REQUESTING PHYSICIAN: [...] with ambulation. States his son is a erosion control coordinator but is unaware of his current skin [...] Laterality Date - COLONOSCOP W/ OR W/O [facility] SPEC Colonoscopy - EGD W/O [...] Rfl: 0, Past Week at Unknown time MULTIVIT-MIN/FA/LYCOPEN/L UTEIN (CENTRUM SILVER ULTRA MEN'S ORAL), Take 1 [...] , Rfl: , Unknown at Unknown time clotrimazole-betamethason e (LOTRISONE) cream, Apply to affected area twice [...] - Levaquin [Levofloxa* Hives REVIEW OF SYSTEMS: DUMPSTER DRIVER: history of Parkinson' s Disease RESP: history [...] visit: Most recent labs and imaging results. Impression/Recommendation s Active Problems: Osteoarthritis of left hip POA: Unknown Assessment AND Plan: Per primary team Type 2 diabetes mellitus without complication, without long-term current use of insulin (HCC) POA: Yes Assessment AND Plan: - Hold Metformin while in house - SSI #1 - Accuchecks ac/hs - Carb control - Hypoglycemia protocol COPD with chronic bronchitis ([facility]) POA: Yes Assessment AND Plan: - Chronic, stable - Continue home meds Hyperlipidemia POA: Yes Assessment AND Plan: - Continue home meds PD (Parkinson's disease) ([facility]) POA: Yes Assessment AND Plan: - Chronic, [...] Device and Early Ambulation Disposition: Home with [facility] Plan of care discussed with: Provider, RN, Patient SIGNATURE: SHRAVAN Christian PATIENT NAME: Alisia Correa DATE: November 08, 2019 TIME: 1:15 PM PAGER/CONTACT #: [phone] [facility] CONSULT HNO ID: [id number] Author: Bhupendra Chacon Service: Podiatry Author Type: [...] complication, without long-term current use of insulin ([facility]) POA: Yes 3. COPD with chronic bronchitis ([facility]) POA: Yes 4. Hyperlipidemia POA: Yes 5. PD (Parkinson's disease) ([facility]) POA: Yes 6. Nicotine use disorder, F17.2 [...] Laterality Date - COLONOSCOP W/ OR W/O [facility] SPEC Colonoscopy - EGD W/O [...] intact Lower extremity tested with 10 gram [place] monofilament No evidence of diabetic peripheral sensory [...] to be well informed. Bhupendra Chacon DPM Normal [facility] NURSING PROGon 11-08-2019 NURSING PROG HNO ID: [id number] Author: Jessica (Rn) ALFONSO Joe Service: Nursing Author Type: Registered Nurse Type: Nursing Progress Note Filed: 11/08/2019 7:25 PM Note Text: Nursing Progress Note Patient Name: Alisia Correa Patient Location: / Daily Note: 1330 Pt admitted to room [...] OPERATIVE NOon 11-08-2019 OPERATIVE NO HNO ID: [id number] Author: Steven Guevara Jr. Service: Orthopaedic Surgery Author Type: Physician Type: Operative Report Filed: 11/08/2019 2:08 PM Note Text: [facility] OPERATIVE REPORT PATIENT NAME: Alisia Correa AGE: [age] year old LOG ID: [id number] Surgery Date: 11/08/2019 SURGEON: Steven Guevara M.D. IMPORT DISPATCHER: Vj Jorge PA-C, his assistance consisted of [...] banked allogenic blood if medically necessary. IMPLANTS: [employer] Total Hip System SIZE TYPE Acetabulum [...] Proximal femoral osteotomy was performed. The box liner osteotome was utilized to lateralize the starting [...] DATE: November 08, 2019 TIME: 11:07 AM [facility] 11-08-2019 PLAN OF CARE HNO ID: [id number] Author: Shelley Givens (Pharmacist) Service: Pharmacy Author [...] possible medication history: Yes Variance(s) from original prescription/clarificatio ns: ? 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 Past Week at Unknown time Yes MULTIVIT-MIN/FA/LYCOPEN/L UTEIN (CENTRUM SILVER ULTRA MEN'S ORAL) Take 1 [...] area twice daily. Unknown at Unknown time clotrimazole-betamethason e (LOTRISONE) cream Apply to affected area twice [...] [facility] PRO[facility]ESS[facility] 11-08-2019 PROGRESS HNO ID: [id number] Author: Niesha (Rt) Elpidio Cobb Service: ? Author Type: Dock Clerk Type: Progress Notes Filed: 11/08/2019 12:05 PM [...] PT EDon 11-08-2019 PT ED HNO ID: [id number] Author: Catherine JerryRn) ALFONSO Basurto Service: Nursing [...] Signed By: Catherine Basurto RN In Department: [facility] SURGERY Normal [facility] SURGICAL PATHOLOGYon 020 SURGICAL PATHOLOGY Specimen originated from [facility] Specimen #: [id number] Submitting Physician: STEVEN GUEVARA JR, MD FINAL [...] Sectioning does not reveal any avascular necrosis. Hybrid Corn Breeder sections are submitted as follows: A1 soft tissue, A2 bone submitted after decalcification. BF/slb 11/08/2019 [place] [address] Date of Report: 11/14/2019 Date of Procedure: 11/08/2019 Date of Receipt: 11/08/2019 Submitted by: STEVEN GUEVARA JR, MD Location: [facility] Diagnostic interpretation performed at [place] [address] [place] [address]. CLIA Number: [id number] Normal [facility] Reference Lab Comment on above: Performed By: #### S #### See report for performing lab information. THERAPY NTon 11-08-2019 THERAPY NT HNO ID: [id number] Author: Oumou Witt (Pt) Fabio Service: Physical Therapy Author Type: Physical Therapist Type: Therapy (PT/OT/Speech/Resp) Filed: 11/08/2019 2:54 PM Note Text: Physical Therapy Evaluation SERVICE DATE: 11/08/2019 SERVICE TIME: 1325 to 1415(8 min for pharmacist to review meds) ROOM: [place] [address] Recommended Discharge Disposition: Outpatient Physical Therapy Recommended [...] week): 7 Current admission Treatment Interventions: Education;Joint Mobility;Strengthening;Fu nctional Mobility Training Plan of Care developed with: Patient TREATMENT INTERVENTIONS: Therapy Diagnosis: Reduced mobility-other Interventions Provided: Evaluation;Therapeutic Exercise (61846);Gait Training (02915);Therapeutic Activity (39704) $ Evaluation-Low (45780) Billed Units: 1 unit Therapeutic Exercise (77361) Treatment Minutes: 12 1 unit Skilled Intervention(s): [...] position: LAQ X10 B LE Therapeutic Activity (91877) Treatment Minutes: 3 Skilled Intervention(s): Instructed patient in supine to sit pushing with upper extremities to sit up Gait Training (47359) Treatment Minutes: 12 1 unit Skilled Intervention(s): [...] FLOOR Equipment Owned: Cane;Hand Held Shower;Grab Bars-Shower;Standard Walker;Commode-Raised;Tammy wer Chair;Lift Chair Prior Functional Level: Within Functional [...] IMPRESSION: Left total hip prosthesis in place. Sales Trainee: PSCB Transcribe Date/Time: Nov 08 2019 12:43P Dictated by : LIGIA EDWARDS MD This examination was interpreted and the report reviewed and electronically signed by: LIGIA EDWARDS MD on Nov 08 2019 12:44PM EST [id number] [facility] NURSING PROGon 10-24-2019 NURSING PROG HNO ID: [id number] Author: Geneva Goins RN Service: Nursing Author Type: Registered Nurse Type: [...] Goins RN October 24, 2019 1:40 PM Normal [facility] Type and SCR (30D)on 019 ABO/RH(D) Negative Normal [facility] CNCOon 01-01-2018 CNCO Letter TextChajoel Correa [address] [place], [place] [address]Madelainejoel Correa[address] [address] Mr. Correa:The nurses and staff of the 5th floor Orthopedic nursing unit at [facility], hope this letter finds you feelingwell [...] free to contact me, Dianna Villarreal at [phone] [email or web address].[place], you will receive a survey in the mail asking you to rate thecare you received while in the hospital. Please take the time to completeand send back the survey, as it is essential to our continued success. Ipersonally review all the results and would appreciate your feedback.Thank you in advance for your participation and thank you for choosing [facility] for your healthcare needs. Sincerely,Dianna Villarreal, MSN, RNNurse [email or web address] Floor OrthopedicMary Ville [email or web address] Normal [facility] Basic Metabolic Panlon 12-31 Anion gap 9 mmol/L Normal 0-15 [facility] Calcium 8.3 mg/dL Low 8.5-10.5 [facility] Chloride 104 mmol/L Normal 98-110 [facility] CO2 25 mmol/L Normal 23-32 [facility] Creatinine 0.98 mg/dL Normal 0.7-1.4 [facility] Glucose mass conc 125 mg/dL High 65-100 [facility] Potassium molar conc 3.5 mmol/L Normal 3.5-5.0 [facility] Sodium 138 mmol/L Normal 135-146 [facility] Urea nitrogen 15 mg/dL Normal 8-25 [facility] CASE MANAGEMon 12-31-2017 CASE MANAGEM HNO ID: [id number] thor: Peace (Rn) JAMIE Bynumervice: Case ManagementAuthor [...] Handoff report completed, dc summaryto be faxed, spoke milagros ReynoldsATURE: Peace Bynum RN PATIENT NAME: Alisia CorreaDATE: December 31, 2017 : 10:40 AM PAGER/CONTACT #: [phone] [facility] CBCon 12-31-2017 Erythrocyte distribution width Auto Ratio (RBC) 15.3 % High 11.5-15.0 [facility] Erythrocytes (RBC) 3.45 10*6/uL Low 4.20-6.00 [facility] Hematocrit (HCT) 29.7 % Low 39.0-51.0 [facility] Hemoglobin mass conc (Bld) 9.6 g/dL Low 13.0-17.0 [facility] MCH 27.8 pG Normal 26.0-34.0 [facility] MCHC mass conc (RBC) 32.3 g/dL Normal 30.5-36.0 [facility] MCV 86.1 fL Normal 80.0-100.0 [facility] Platelet mean volume (PMV) 13.3 fL High 9.0-12.7 [facility] Platelets 112 10*3/uL Low 150-400 [facility] Comment on above: Result Comment[facility]. WBC (Leukocytes) 6.00 10*3/uL Normal 3.70-11.00 [facility] CNDSon 12-31-2017 CNDS HNO ID: [id number] thor: Candida (Res) [facility] HospitaltereodService: Orthopaedic SurgeryAuthor Type: ResidentType: Discharge SummariesFiled: 01/01/2018 7:33 AMNote Text: Attestation signed by Sergey Perez at 01/01/2018 11:35 Rayna Perez MD -------ORTHOPEDIC SURGERYDISCHARGE SUMMARYADMISSION DATE: 12/29/2017DISCHARGE DATE: 12/31/17Attending Physician: [...] LipImpotence of Organic OriginFrequency of UrinationSlow Urinary StreamMicrostomiaHypertro phy of Prostate With Urinary Obstruction and Other Lower UrinaryTract Symptoms (Luts)Postlaminectomy Syndrome of Lumbar RegionGlenohumeral ArthritisPrimary Osteoarthritis of Left KneeType 2 Diabetes Mellitus Without Complication, Without Long-Term CurrentUse of Insulin (Hcc)Chronic Pain SyndromeCopd With Chronic Bronchitis (Hcc)Arthritis of KneePrimary Osteoarthritis of Right KneeOa (Osteoarthritis) of KneeGlenohumeral Arthritis, LeftEssential TremorAsthmaDiabetes Mellitus (Hcc)Essential HypertensionHyperlipidemi aUlcerative LesionShoulder ArthritisSurgeries During Hospitalization: Procedure(s) (LRB):ARTHROPLASTY TOTAL SHOULDER; W/ GLENOID AND PROXIMAL HUMERAL REPLACEMENT(Left)Consulta tions: Physical TherapyCase ManagementInternal MedicineHospital Course:The patient is [...] surgery. [facility] Surgery was scheduledand on 12/29/2017 he underwent a Procedure(s) (LRB):ARTHROPLASTY TOTAL SHOULDER; W/ GLENOID AND PROXIMAL HUMERAL REPLACEMENT(Left) with GETA. The procedure was tolerated well [facility], where he also did well.Post operative x-rays in the recovery room showed appropriate prostheticalignment. He was subsequently sent to his hospital room for postoperativemanagement.O nce on the floor his postoperative course was [...] was hemodynamically stable postoperatively.Relevant labs included:Hemoglobin (g/dL)Date Value 9.6 (L)12/30/2017 9.7 (L)12/07/2017 13.4Hematocrit (%)Date Value [...] in 10-14 days.Future AppointmentsDate Time Provider Department [place]01/06/2018 11:40 AM Cisco Krishnan NRESMN NREST S Bldg01/12/2018 10:00 AM Evangelist (Rn) ALFONSO Gilliland ORTHEU [facility]02/08/2018 2:00 PM XR [facility] RGNEU [facility]02/08/2018 2:30 PM Sergey Perez ORTHEU [facility]03/08/2018 9:20 AM Dusty Montgomery NEURAV REJDischarge Medications: Discharge Medication List as of 12/31/2017 12:41 PMSTART taking these medicationsoxyCODONE-acet aminophen (PERCOCET) 5-325 mg tabletTake 1-2 tablets by [...] cuff syndrome of shoulder and allied disorders, unspecifiedlateralityonda nsetron (ZOFRAN, HYDROCHLORIDE,) 4 mg tabletTake 1 tablet by mouth every 8 hours as needed.Print RX, Disp-10 tablet, R-0Dx: 1. Rotator cuff syndrome of shoulder and allied disorders, unspecifiedlateralityCONT INUE these medications which have NOT CHANGEDdiclofenac, EC, [...] % lotnApply to affected area twice daily.Historical Medclotrimazole-betametha sone (LOTRISONE) creamApply to affected area twice daily.Historical [...] BM > 48 hrs.Print RX, Disp-120 mL, V-3lonyowtorx-uwbivzbaxl (SYMBICORT) 160-4.5 mcg/actuation inhalerInhale 2 Puffs as instructed twice daily.Med Update, R-0DULoxetine (CYMBALTA) 60 mg capsuleTake 1 capsule by mouth once daily.Med Update, R-0sucralfate (CARAFATE) 1 gram tabletTake 1 tablet by mouth four times daily.Med Update, A-8HMETKAAV-WPX/FA/LYCOPE N/LUTEIN (CENTRUM SILVER ULTRA MEN'S ORAL)Take 1 tablet by mouth once daily.Historical Medamitriptyline 25 mg ORAL tabletTake 50 mg by mouth daily at bedtime.Historical Med, R-0tamsulosin (FLOMAX) 0.4 mg ORAL Xr24Jlmb 2 capsules by mouth daily at bedtime.Mail [...] December 31, 2017 : 6:26 AM PAGER: [phone] [facility] NURSING PROGon 12-31-2017 NURSING PROG HNO ID: [id number] thor: Charlotte Crowe (Rn) Hipolito, RNService: (none)Author Type: Registered NurseType: Nursing Progress NoteFiled: 12/31/2017 2:04 PMNote Text: Nursing Progress NotePatient Name: Alisia CorreaMRN: [id number] Location: [facility] [place]-506/ [place]-* Dai ly Note:0800 awake, alert for am assessment. Left [...] note was completed by: Charlotte Mcmillan RN [facility] PROGRESSon 12-31-2017 PROGRESS HNO ID: [id number] thor: Candida (Res) MahmoodService: Orthopaedic SurgeryAuthor Type: ResidentType: Progress NotesFiled: 12/31/2017 6:26 AMNote Text:ORTHOPAEDIC SURGERY PROGRESS NOTEPatient: Alisia CorreaMRN: [id number]: Procedure(s) (LRB):ARTHROPLASTY TOTAL SHOULDER; W/ GLENOID AND PROXIMAL HUMERAL REPLACEMENT(Left)Date: 12/29/2017Staff: Sergey SheltonMPRESSION/PLAN: a 57 year old male s/p Left [...] LipImpotence of Organic OriginFrequency of UrinationSlow Urinary StreamMicrostomiaHypertro phy of Prostate With Urinary Obstruction and Other Lower UrinaryTract Symptoms (Luts)Postlaminectomy Syndrome of Lumbar RegionGlenohumeral ArthritisPrimary Osteoarthritis of Left KneeType 2 Diabetes Mellitus Without Complication, Without Long-Term CurrentUse of Insulin ([facility])Chronic Pain SyndromeCopd With Chronic Bronchitis ([facility])Arthritis of KneePrimary Osteoarthritis of Right KneeOa (Osteoarthritis) of KneeGlenohumeral Arthritis, LeftEssential TremorAsthmaDiabetes Mellitus (Hcc)Essential HypertensionHyperlipidemi aUlcerative LesionShoulder ArthritisSUBJECTIVE:No acute issue overnight, Comfortable, pain is better controlled,afebrile, No CP/SOBOBJECTIVE:VITAL SIGNS:BMI: Body mass index is 33.49 kg/(m2). 12/30/1817BP: 91/54 91/65 119/63 110/62Pulse: 80 88 95 75Resp: 18Temp: 37 ?C (98.6 ?F) 37.3 ?C [...] labsMost recent imagingBilal MD Bi12/30/2017Orthopaedic Surgery PGY-2Pager: [phone] [facility] PROGRESS HNO ID: [id number] thor: Macrina ([facility]) DionService: General Internal MedicineAuthor Type: Nurse PractitionerType: Progress NotesFiled: 12/31/2017 5:07 PMNote Text:INPATIENT PROGRESS NOTESName: Alisia Cox SunnyMRN: [id number] of Service: December 31, 2017SUBJECTIVE: Seen and examined at bedside.Patient states pain is level 4-5 now. He denies any dizziness/lightheadedness . He denies nausea orvomiting, chest pain, palpitations or shortness of breath.PERTINENT ROS:All others reviewed and negative except as per HPIMEDICATIONS:No current hospital medications on file.PHYSICAL EXAM: 12/30/18211BP: 91/65 119/63 110/62 105/66Pulse: 88 95 75 [...] loss [D62]: hgb 9.6. Patient isasx and VSS.Thrombocytopenia[D69. 6]: plt 112 this morning. No unusual bruising [...] developed plan of care with Dr. Blair.Macrina Thomason, [facility] 20175:00 PM [facility] THERAPY NTon 12-31-2017 THERAPY NT HNO ID: [id number] thor: Cyn (Ot) PacoerService: Occupational TherapyAuthor Type: Occupational TherapistType: Therapy (PT/OT/Speech/Resp)Filed: 01/04/2018 4:15 PMNote Text:Occupational Therapy TreatmentSERVICE DATE: 12/31/2017SERVICE TIME: 1300 to 1338ROOM: [facility] [id number] Discharge Disposition: HomeAnticipated Discharge Needs: Physical Assist at HomePhysical Assist at Home for: Cleaning;Laundry;SelfCare ;Shopping;TransportationO T Recommendations to Nursing: ADL?s in chair;OOB for mealsOT 6 Clicks Score: 21Precautions/Activity Restrictions: Weight Bearing Restrictions;ShoulderPrec autionsPrecaution/Activit y Restriction Comments: hand,wrist,elbow, AROM OKExtremity With Weight Bearing Restricted: Left Upper ExtremityLeft Upper Extremity Weight Bearing Status: NWBShoulder Precautions: External rotation limitation;Forward elevationlimitation;No pendulumsShoulder External Rotation Limited To: neutralShoulder Forward Elevation Limited To: 0-120 degreesASSESSMENT:Patient Disposition at Start of Session: OOB in ChairPatient Disposition at End of Session: (sitting on edge of bed)Tolerated Full SessionOccupational Therapy Problem List: Education Deficit;CognitiveDeficit; Pain;Edema;Safety Deficits;Impaired Self Care (appears someconfusion and slow to respond)Patient /Caregiver Goals: Go HomeGoals for Plan of Care:Upper Body Bathing with: IndependentUpper Body Dressing with: IndependentLower Body Bathing with: IndependentLower Body Dressing with: IndependentChair Transfer with: IndependentToilet Transfer with: IndependentProgress Toward Goals: Progressing as expectedRehab Potential: GoodPLAN:Treatment Frequency (times per week): 2 Current admissionTreatment Interventions: Education;Self Care / Home Management;FunctionalMobi lity Training;Wound Care Management;Edema Management;Pain ManagementPlan of Care developed with: PatientTREATMENT INTERVENTIONS:Therapy Diagnosis: Reduced mobility-other;Decreased activities of dailyliving (ADL)Interventions Provided: Self Senior Living Management (81259);TherapeuticExerci se (09551)Therapeutic Exercise (01288) Treatment Minutes: 101 unitSkilled Intervention(s): Instruction in therapeutic exerciseFacilitation of muscle control, optimal recruitment and alignmentEducation in PROM in supine to L shoulder to 90 degrees. present and follow instruction, with proper techniqueSelf Senior Living Management (25190) Treatment Minutes: 282 unitsSkilled Intervention(s): Instructed in [...] to Stand SupervisionStand to Sit SupervisionBed to ChairToilet/CommodeFuncti onal Mobility SupervisionPlease see discipline specific clinical documentation flowsheet forcomplete details for this therapy evaluation/treatment.SIGN ATURE: Cyn Willson OTR/L PATIENT NAME[facility]: [facility], 2017 : 2:25 PM PAGER: [phone] [facility] CASE MANAGEMon 12-30-2017 CASE MANAGEM HNO ID: [id number] thor: Peace (Rn) JAMIE Bynumervice: Case ManagementAuthor [...] 30, 2017 : 11:07 AM PAGER/CONTACT #: [phone] [facility] CASE MGT INIT ASSESon 2017 CASE MGT INIT ASSES HNO ID: [id number] thor: Peace (Rn) Fletcher, RNService: Case ManagementAuthor Type: Registered NurseType: Care Mgt Initial AssessmentFiled: 12/30/2017 11:07 AMNote Text:CARE MANAGEMENT: ASSESSMENT AND DISCHARGE PLANSERVICE DATE: 12/30/2017SERVICE TIME: 9:50amPRIMARY CARE PHYSICIAN:Ellen Crabtree, DOPhone: PWBDZNVLL STATUS: InpatientNeeds Prior to Discharge: Ready for DischargeMEDICAL:Patient/ Hybrid Corn Breeder Stated Goals:To improve my functional statusHealth Insurance: [facility]Health Issues Impacting Discharge Plan: TSALast Admission Date: [...] - StraightHas the Patient Been in a Care Home Facility in the Past 30 days? NoSOCIAL:Living Arrangement: HomeLives With: SpouseFinancial Resources: Employed: .Primary Contact: Extended Emergency Contact InformationPrimary Emergency Contact: Armen Correaddress: [address] [address]Intm Dfrranjl: SpouseSupportive: NoOther Important Patient Contacts: NoneCaregiver Assessment:Caregiver [...] - 0I feel financially burdened by my rqp-oz-xjvbba expenses for myprescription medication: Agree mostly - [...] fallsPsychosocial Needs: NoneFREEDOM OF CHOICE EXPLAINED:N/APOTENTIAL TRANSITION GRUGQVvob58 yo male admitted for TSA. 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 Lives at home w.Spouse who is able to assist as needed. No falls or safety concerns athome. No snf or hhc in the past. PCP is Dr Crabtree whom patient follows [facility]. Therapy recommends home w./ HEP. Anticipate dc home post opday 1 pending medical and therapy clearance. Cm to cont to followSIGNATURE: Peace Bynum RN PATIENT NAME: Alisia CorreaDATE: December 30, 2017 : 11:00 AM PAGER/CONTACT #: [phone] [facility] CBCon 12-30-2017 Erythrocyte distribution width Auto Ratio (RBC) 15.2 % High 11.5-15.0 [facility] Erythrocytes (RBC) 3.44 10*6/uL Low 4.20-6.00 [facility] Hematocrit (HCT) 29.6 % Low 39.0-51.0 [facility] Hemoglobin mass conc (Bld) 9.7 g/dL Low 13.0-17.0 [facility] MCH 28.2 pG Normal 26.0-34.0 [facility] MCHC mass conc (RBC) 32.8 g/dL Normal 30.5-36.0 [facility] MCV 86.0 fL Normal 80.0-100.0 [facility] Platelet mean volume (PMV) 12.6 fL Normal 9.0-12.7 [facility] Platelets 128 10*3/uL Low 150-400 [facility] Comment on above: Result Comment: Samp le checked for a clot. WBC (Leukocytes) 7.10 10*3/uL Normal 3.70-11.00 [facility] CONSULTon 12-30-2017 CONSULT HNO ID: [id number] thor: Reagan Floreservice: General Internal MedicineAuthor Type: PhysicianType: ConsultsFiled: 12/30/2017 9:00 PMNote Text:HISTORY AND PHYSICAL EXAMINATIONPATIENT NAME: Alisia CorreaMRN: [id number] DATE: 12/30/2017SERVICE TIME: 1030PRIMARY CARE PHYSICIAN: NANCY [...] HISTORYProcedure Laterality Date- COLONOSCOP W/ OR W/O [facility] SPEC Colonoscopy- EGD W/O OR [...] bedtime.Disp: 30 tablet Rfl: 2 12/28/2017 at 0atorvastatin (LIPITOR) 10 mg tablet Take 10 mg by mouth once daily. Disp:Rfl: 10 days agoezetimibe (ZETIA) 10 mg tablet Take 10 mg by mouth once daily. Disp: Rfl: 12/28/2017 at 1929traMADol 200 mg 24 hr tablet Take 1 [...] meals and at bedtime. Disp: Rfl: 12/28/2017 [id number] (VIAGRA) 100 mg tablet Take 100 mg by mouth as needed. Disp:Rfl: more then 1 weektopiramate (TOPAMAX) 100 mg tablet Take 2 tablets by mouth twice daily.Disp: 120 tablet Rfl: 5 12/28/2017 at 1929tiZANidine (ZANAFLEX) 4 mg tablet Disp: Rfl: 12/28/2017 at 1929ranitidine (ZANTAC) 150 mg tablet once daily. Disp: Rfl: 3 days agohydrOXYzine HCl (ATARAX) 50 mg tablet every 6 hours as needed for Anxiety.Disp: Rfl: 12/28/2017 at 1929Aug Betamethasone Dipropionate (DIPROLENE) 0.05 % ointment APPLY [...] timesdaily. Disp: Rfl: 0 more then 1 weekMULTIVIT-MIN/FA/LYCOP EN/LUTEIN (CENTRUM SILVER ULTRA MEN'S ORAL) Take 1tablet by mouth once daily. Disp: Rfl: more then 1 week agoamitriptyline 25 mg ORAL tablet Take 50 mg by mouth daily at bedtime.Disp: Rfl: 0 12/28/2017 at 0tamsulosin (FLOMAX) 0.4 mg ORAL Cp24 Take 2 [...] area twice daily. Disp: Rfl:more then 1 weekclotrimazole-betameth asone (LOTRISONE) cream Apply to affected area twicedaily. [...] (DILAUDID) 0.4 mg INTRAVENOUS q 2 H PRNoxyCODONE-acetaminophe n 5-325 mg 1-2 tablet (PERCOCET) 1-2 tablet [...] (ATARAX) 50 mg ORAL q 6 H PRNALLERGIES:ALLERGIESAll ergen Reactions- Avelox [Moxifloxaci* Rash, Hives, Itching, Shortness [...] reviewed and negative other than HPI.PHYSICAL EXAM: 12/30/1801541 025BP: 99/58 95/56 106/61Pulse: 77 71 74Resp: 18 [...] focal deficits.DATA:CBC, Coags, BMP, Mg, PhosRecent Labs 12/30/588785BKO 7.10HB 9.7*HCT 29.6*PLT 128*ASSESSMENT AND PLAN:Postoperative anemia due to acute blood loss [D62]: hgb 9.7. Patient isasx and VSS. Will continue to monitor, check CBC tomorrow.Thrombocytopenia [D69.6]: plt 128 this morning. No unusual bruising [...] in the care of your patient.Macrina Thomason, [facility] 201711:58 AMmeds reordered. Check bs. Pain is okI have seen the patient and verified the exam. I have personally reviewedall labs and imaging results. I have discussed with the WINDOWS SYSTEM ADMIN and I haveparticipated in sifuentse components.I agree with the note as documented with additional comments if needed.The assessment and plan as outlined are reflection of our discussion.Reagan Blair MD [facility] NURSING PROGon 12-30-2017 NURSING PROG HNO ID: [id number] thor: Cece (Rn) Debbie Veraice: (none)Author Type: Registered NurseType: Nursing Progress NoteFiled: 12/30/2017 4:53 PMNote Text: Nursing Progress NotePatient Name: Alisia CorreaMRN: [id number] Location: / [place]-* Dai ly Note: pt c/o pain to left underarm, med with percocet 2 tabs po, rtshoulder dsg intact with fresh ice pack applied, on q ball intact/ patent,lef shoulder immobilizer on, jacqueline sequentials on bilat, vs stable, ptstates cannot go home today. Pt states that his works to 6 pm and helive 2 hours away from [id number] pt resting in bed with no change in status, no needs at this timeThis note was completed by: Cece Vera RN [facility] NURSING PROG HNO ID: [id number] thor: Sotero Nelson) Amanda RNService: (none)Author Type: Registered NurseType: Nursing Progress NoteFiled: 12/30/2017 10:14 PMNote Text: Nursing Progress NotePatient Name: Alisia CorreaMRN: [id number] Location: / [place]-* Dai ly Note: Patient is resting in bed. Alert [...] note was completed by: SOTERO CHAVARRIA RN [facility] PROGRESSon 12-30-2017 PROGRESS HNO ID: [id number] thor: Candida (Res) MahmoodService: Orthopaedic SurgeryAuthor Type: ResidentType: Progress NotesFiled: 12/30/2017 6:27 AMNote Text:ORTHOPAEDIC SURGERY PROGRESS NOTEDATE: 12/30/2017TIME: 5:54 AMPatient: Alisia CorreaMRN: [id number]: Procedure(s) (LRB):ARTHROPLASTY TOTAL SHOULDER; W/ GLENOID AND [...] LipImpotence of Organic OriginFrequency of UrinationSlow Urinary StreamMicrostomiaHypertro phy of Prostate With Urinary Obstruction and Other Lower UrinaryTract Symptoms (Luts)Postlaminectomy Syndrome of Lumbar RegionGlenohumeral ArthritisPrimary Osteoarthritis of Left KneeType 2 Diabetes Mellitus Without Complication, Without Long-Term CurrentUse of Insulin (Hcc)Chronic Pain SyndromeCopd With Chronic Bronchitis (Hcc)Arthritis of KneePrimary Osteoarthritis of Right KneeOa (Osteoarthritis) of KneeGlenohumeral Arthritis, LeftEssential TremorAsthmaDiabetes Mellitus (Hcc)Essential HypertensionHyperlipidemi aUlcerative LesionShoulder ArthritisSUBJECTIVE:No acute issue overnight, Comfortable, pain is better controlled,afebrile, No CP/SOBOBJECTIVE:VITAL SIGNS:BMI: Body mass index is 33.49 kg/(m2). 12/29/18221BP: 101/68 99/58 95/56Pulse: 74 77 71Resp: 18 18 18Temp: 36.8 ?C (98.3 ?F) 36.9 ?C [...] reviewed for today's visit:Most recent labsMost recent Tarsha Pat MD12/30/2017Orthopaedic Surgery PGY-2Pager: [phone] [facility] THERAPY NTon 12-30-2017 THERAPY NT HNO ID: [id number] thor: Pj (Pt) SulenService: Physical TherapyAuthor Type: Physical TherapistType: Therapy (PT/OT/Speech/Resp)Filed: 12/30/2017 1:25 PMNote Text:Physical Therapy EvaluationSERVICE DATE: 12/30/2017SERVICE TIME: 1140 to 1205ROOM: [id number] Discharge Disposition: Outpatient Physical Therapy (whenappropriate)Anticipa jacqueline Discharge Needs: Physical Assist at HomePhysical Assist at Home for: Cleaning;Laundry;SelfCare ;Shopping;TransportationR ecommended Discharge Equipment: No equipment needs anticipatedPT Recommendations to Nursing: Ambulate with device;To bathroom;OOB forMeals;Sit at edge of bed;With assist of 1 personDevice: CanePT 6 Clicks Score: 24Precautions/Activity Restrictions: Weight Bearing Restrictions;ShoulderPrec autionsPrecaution/Activit y Restriction Comments: hand,wrist,elbow, AROM OKExtremity With Weight Bearing Restricted: Left Upper ExtremityLeft Upper Extremity Weight Bearing Status: NWBShoulder Precautions: External rotation limitation;Forward elevationlimitation;No pendulumsShoulder External Rotation Limited To: neutralShoulder Forward Elevation Limited To: 0-120 degreesASSESSMENT :Patient presents s/p L-TSA Pt evaluation of low complexity due to fewco-morbidities directly affecting pt's current condition. Pt'spresentation is relatively stable/uncomplicated, not requiring continualor complex monitoring/assessment.Dirk erated Full SessionPhysical Therapy Problem List: Functional Mobility ImpairmentPatient /Caregiver Goals: Go HomeGoals for Plan of Care:Ambulate with: Modified IndependentDistance: 20ftDevice: CaneProgress Toward Goals: (goal achieved)PLAN:Treatment Frequency (times per week): Discontinue Therapy ServicesReasons Therapy Services Discontinued: Goals metPlan of Care developed with: PatientTREATMENT INTERVENTIONS:Therapy Diagnosis: Reduced mobility-otherInterventio ns Provided: Evaluation;Gait Training (20309)$ Evaluation-Low (33983) Billed Units: 1 unitGait Training (91144) Treatment Minutes: 232 unitsSkilled Intervention(s): Pt ambulated [...] Walking and Moving Around Current Status (G8978): ()Mobility: Walking and Moving Around Goal Status [...] documentation flowsheet forcomplete details for this therapy evaluation/treatment.SIGN ATURE: Pj Rueda PT PATIENT NAME: Alisia Cox WeyerDATE: December 30, 2017 : 1:10 PM PAGER/CONTACT #: [phone] [facility] THERAPY NT HNO ID: [id number] thor: Cyn (Ot) ChristopherService: Occupational TherapyAuthor Type: Occupational TherapistType: Therapy (PT/OT/Speech/Resp)Filed: 12/30/2017 2:42 PMNote Text:Occupational Therapy EvaluationSERVICE DATE: 12/30/2017SERVICE TIME: 1055 to 1125ROOM: [id number] Discharge Disposition: HomeAnticipated Discharge Needs: Physical Assist at HomePhysical Assist at Home for: Cleaning;Laundry;SelfCare ;Shopping;TransportationO T Recommendations to Nursing: ADL?s in chair;OOB for mealsOT 6 Clicks Score: 16Precautions/Activity Restrictions: Weight Bearing Restrictions;ShoulderPrec autionsPrecaution/Activit y Restriction Comments: hand,wrist,elbow, AROM OKExtremity With Weight [...] status and any precautions associated with current surgicalprocedure.Tolerat ed Full SessionOccupational Therapy Problem List: Education Deficit;CognitiveDeficit; Pain;Edema;Safety Deficits;Impaired Self Care (appears someconfusion and slow to respond)Patient /Caregiver Goals: Go HomeGoals for Plan of Care:Upper Body Bathing with: IndependentUpper Body Dressing with: IndependentLower Body Bathing with: IndependentLower Body Dressing with: IndependentChair Transfer with: IndependentToilet Transfer with: IndependentRehab Potential: GoodPLAN:Treatment Frequency (times per week): 2 Current admissionTreatment Interventions: Education;Self Care / Home Management;FunctionalMobi lity Training;Wound Care Management;Edema Management;Pain ManagementPlan of Care developed with: PatientTREATMENT INTERVENTIONS:Therapy Diagnosis: Reduced mobility-other;Decreased activities of dailyliving (ADL)Interventions Provided: Evaluation;Therapeutic Exercise (82590);Self CareHome Management (97249)$ Evaluation-Moderate (74678) Billed Units: 1 unitTherapeutic Exercise (46013) Treatment Minutes: 101 unitSkilled Intervention(s): Instruction in therapeutic exercise PROM Lshoulder to 90 degrees in supineEducation in AROM distal to shoulder after brace comes off at home mid elf Senior Living Management (61919) Treatment Minutes: 131 unitSkilled Intervention(s): Instructed in [...] 1055)Self Care Goal Status (G8988): CK (12/30/17 2044)Based on clinical assessment and the score on the 6 Clicks FunctionalAssessment Tool, the G code and corresponding severity modifiers aredocumented above.SUBJECTIVE:Current Hospital Course: Chart reviewed; Pt 57 yo M admitted on 12/29/17or Kenny BOB by Dr Barney Report: I want to [...] to Stand SupervisionStand to Sit SupervisionBed to ChairToilet/CommodeFuncti onal Mobility Stand By AssistancePlease see discipline specific clinical documentation flowsheet forcomplete details for this therapy evaluation/treatment.SIGN ATURE: INDU Ray/Kenny PATIENT NAME: [facility]isia [facility]: [facility], 2017 : 2:34 PM PAGER: [phone] [facility] THERAPY NT HNO ID: [id number] thor: Cyn Velazquezervice: Occupational TherapyAuthor Type: Occupational TherapistType: Therapy (PT/OT/Speech/Resp)Filed: 12/30/2017 4:30 PMNote Text:Occupational Therapy TreatmentSERVICE DATE: 12/30/2017SERVICE TIME: 1600 to 1610ROOM: [address]YU-[id number] Discharge Disposition: HomeAnticipated Discharge Needs: Physical Assist at HomePhysical Assist at Home for: Cleaning;Laundry;SelfCare ;Shopping;TransportationO T Recommendations to Nursing: ADL?s in chair;OOB for mealsOT 6 Clicks Score: 16Precautions/Activity Restrictions: Weight Bearing Restrictions;ShoulderPrec autionsPrecaution/Activit y Restriction Comments: hand,wrist,elbow, AROM OKExtremity With Weight Bearing Restricted: Left Upper ExtremityLeft Upper Extremity Weight Bearing Status: NWBShoulder Precautions: External rotation limitation;Forward elevationlimitation;No pendulumsShoulder External Rotation Limited To: neutralShoulder Forward Elevation Limited To: 0-120 degreesASSESSMENT:Tolerat ed Full SessionOccupational Therapy Problem List: Education Deficit;CognitiveDeficit; Pain;Edema;Safety Deficits;Impaired Self Care (appears someconfusion and slow to respond)Patient /Caregiver Goals: Go HomeGoals for Plan of Care:Upper Body Bathing with: IndependentUpper Body Dressing with: IndependentLower Body Bathing with: IndependentLower Body Dressing with: IndependentChair Transfer with: IndependentToilet Transfer with: IndependentProgress Toward Goals: Progressing as expectedRehab Potential: GoodPLAN:Treatment Frequency (times per week): 2 Current admissionTreatment Interventions: Education;Self Care / Home Management;FunctionalMobi lity Training;Wound Care Management;Edema Management;Pain ManagementPlan of Care developed with: PatientTREATMENT INTERVENTIONS:Therapy Diagnosis: Reduced mobility-other;Decreased activities of dailyliving (ADL)Interventions Provided: Therapeutic Exercise (51087)Therapeutic Exercise (28071) Treatment Minutes: 101 unitSkilled Intervention(s): Facilitation of [...] to Stand SupervisionStand to Sit SupervisionBed to ChairToilet/CommodeFuncti onal Mobility Stand By AssistancePlease see discipline specific clinical documentation flowsheet forcomplete details for this therapy evaluation/treatment.SIGN ATURE: INDU Ray/L PATIENT NAME[facility]: December 30, 2017 : 4:29 PM PAGER: [phone] [facility] ANES Brian 12-29-2017 ANES POST HNO ID: [id number] thor: Ilsa NgService: AnesthesiologyAuthor Type: AnesthesiologistType: Anesthesia PostOpFiled: 12/29/2017 6:14 PMNote Text:POST ANESTHESIA EVALUATION NOTESERVICE DATE: 12/29/2017SERVICE TIME: 6:14 PMDOB: 1960Vitals: 12/29/1816Temp: 36.1 ?C (97 ?F) 36 ?C (96.8 ?F) 12/29/1816BP: 109/68 104/58 114/57 115/64 03/13/631505 12/29/1816Pulse: (!) 59 (!) 58 61 60 12/29/1816Resp: [...] 29, 2017 : 6:14 PM PAGER/CONTACT #: [facility] ANES PREOPon 12-29-2017 ANES PREOP HNO ID: [id number] thor: Ilsa NgService: AnesthesiologyAuthor Type: AnesthesiologistType: Anesthesia PreOpFiled: 12/29/2017 6:14 PMNote Text:REGIONAL ANESTHESIOLOGY DAY OF SURGERY NOTEPATIENT NAME: Alisia CorreaMRN: [id number] :ALLERGIESAllergen Reactions- Avelox [Moxifloxaci* Rash, Hives, Itching, Shortness of Breath- Celebrex [Celecoxib] Rash, Hives, GI Upset- Erythromycin Base Hives, Shortness of Breath- Klonopin [Clonazepa* Itching- Levaquin [Levofloxa* HivesProcedure(s) (LRB):ARTHROPLASTY TOTAL SHOULDER; W/ GLENOID AND PROXIMAL HUMERAL REPLACEMENT(Left)Surgeon( s):Sergey Malikitals: BP: 116/61Pulse: 60Resp: 18Temp: 36.1 ?C (97 [...] LipImpotence of Organic OriginFrequency of UrinationSlow Urinary StreamMicrostomiaHypertro phy of Prostate With Urinary Obstruction and Other Lower UrinaryTract Symptoms (Luts)Postlaminectomy Syndrome of Lumbar RegionGlenohumeral ArthritisPrimary Osteoarthritis of Left KneeType 2 Diabetes Mellitus Without Complication, Without Long-Term CurrentUse of Insulin (Hcc)Chronic Pain SyndromeCopd With Chronic Bronchitis ([facility])Arthritis of KneePrimary Osteoarthritis of Right KneeOa (Osteoarthritis) of KneeGlenohumeral Arthritis, LeftEssential TremorAsthmaDiabetes Mellitus (Hcc)Essential HypertensionHyperlipidemi aUlcerative LesionPAST MEDICAL HISTORYDiagnosis Date- Durbin's esophagus- Closed [...] HISTORYProcedure Laterality Date- COLONOSCOP W/ OR W/O [facility] SPEC Colonoscopy- EGD W/O OR [...] SCM 08/06/2010 Performed by GEORGINA SEAMAN at [facility]- TOTAL KNEE REPLACEMENT Left 2012 with revision [...] 10 mg by mouth once daily. 12/28/2017at 193 YestraMADol 200 mg 24 hr tablet Take [...] YestiZANidine (ZANAFLEX) 4 mg tablet 12/28/2017 at 0 Yesranitidine (ZANTAC) 150 mg tablet once daily. [...] mouth four timesdaily. more then 1 week YesMULTIVIT-MIN/FA/LYCOPE N/LUTEIN (CENTRUM SILVER ULTRA MEN'S ORAL) Take 1tablet [...] to affected area twice daily. more then 1weekclotrimazole-betamet hasone (LOTRISONE) cream Apply to affected area twicedaily. not takingCurrent Facility-Administered Medications:lidocaine 10 mg/mL (1 %) 1-2 mg injection (XYLOCAINE) 0.1-0.2 mLINTRADERMAL PRN Laura (Shravan) Yehudalactated ringers infusion 5-30 mL/hr INTRAVENOUS CONTINUOUS Laura Pablo)YehudaceFAZolin iv piggyback 2 g in D5W (iso-osmotic) 100 mL (ANCEF) 2 gINTRAVENOUS Pre-Op Once Laura Pablo) Meyermidazolam (PF) 4 mg injection (VERSED) 4 [...] contains updated information obtained within 48 hours ofSurgery/Procedure.IMANI COELHO: Ady Umanzor MDDATE: December 29, 2017TIME: 12:45 PM [facility] BRIEF OP NOTon 12-29-2017 BRIEF OP NOT HNO ID: [id number] thor: Bilal (Res) MahmoodService: Orthopaedic SurgeryAuthor Type: ResidentType: Brief Op NoteFiled: 12/29/2017 5:35 PMNote Text:SHOULDERBRIEF OPERATIVE / PROCEDURE NOTELOG ID: [id number]/Procedure Date: 12/29/2017Incision/Procedu re Start Time: 3:04 PMIncision Close/Procedure End Time: 5:22 PMSurgeon(s)/Proceduralis t(s) and Court Registry Officer(s):Surgeon(s) and Role: * Sergey Perez - Primary * Watson (Micheal Garcia - Fellow * Candida Pat - Resident - AssistingPhysician Court Registry Officer: Chato Arrieta (Pa) IIProcedure(s):Procedure( s) (LRB):ARTHROPLASTY TOTAL SHOULDER; W/ GLENOID AND PROXIMAL HUMERAL REPLACEMENT(Left)Anesthes ia: GeneralFindings: severe OAEstimated Blood Loss: 250 mlsSpecimens: NoneComplications: NonePre-Op/Pre-Procedure Diagnosis: Glenohumeral arthritis, left [M19.012]Post-Op/Post-Pro cedure Diagnosis: Glenohumeral arthritis, left [M19.012]Weight Bearing Status: Non-Weight Bearing, Passive FF 0-120, slingPlan:PACU Imaging: AP L shoulder- Antibiotics: ancef- Pain Management: PO and IV- Diet: CCD- Encouraged IS- PT/OT- Anticipate D/C: POD 1- Dispo: RNF then home POD 1- F/u with Dr. Sergey Perez as scheduled in clinic, with Kenny Pat MD12/29/2017Orthopaedic Surgery PGY-2Pager: [phone]: Candida Pat MD PATIENT NAME: Alisia CorreaDATE: December 29, 2017 : 5:33 PM PAGER/CONTACT #: [phone] [facility] NURSING PROGon 12-29-2017 NURSING PROG HNO ID: [id number] thor: Cece (Rn) JAMIE Veraervice: (none)Author Type: Registered NurseType: Nursing Progress NoteFiled: 12/30/2017 10:50 AMNote Text: Nursing Progress NotePatient Name: Alisia CorreaMRN: [id number] [facility] [place] Dai ly Note: pt arrived from PACU via bed, A+OX3, oriented pt to room andcall light, left shoulder dsg with immobilizer and ice pack dry andintact, pillow placed behind left elbow, on q ball intact/ clamped, ptdenies pain at this time, vs stable, [place] at bedside ordering dietfor [id number] Reviewed daily medication list with pt, compared med list with MARand ordered appropriate medications that were missing from pt's MARThis note was completed by: Cece Vera RN [facility] NURSING PROG HNO ID: [id number] thor: Ny (Rn) Lianet, JAMIEervice: NursingAuthor Type: Registered NurseType: Nursing Progress NoteFiled: 12/30/2017 6:13 AMNote Text: Nursing Progress NotePatient Name: Alisia CorreaMRN: [id number] Location: [facility] [place]/ [place]-* Dai ly Note: Assumed care, pt sitting up in [...] for needs and out of bed, pt verbalizesunderstanding.2 045 Up to bathroom with 1 assist for void. Per request, pt left in chairwith call light in reach.2240 Ordered meds reviewed/taken without difficulty. Assisted back tobed. Call light in reach.0600 Pt c/o increased pain, qball unclamped at this time. Discussed PRNpain med options for increased pain, declines at this time.This note was completed by: NY HERNANDEZ RN [facility] OPERATIVE NOon 12-29-2017 OPERATIVE NO HNO ID: [id number] thor: Sergey Cerna: Orthopaedic SurgeryAuthor Type: PhysicianType: Operative ReportFiled: 12/29/2017 5:49 PMNote Text:[facility] [place], [place] [address] [place]OPERATIVE REPORTNAME: Alisia [facility] #: [id number]: 12/29/2017 (3:04pm-5:22pm) AGE: 57SURGEON 1: Sergey Perez M.D.IMPORT DISPATCHER: 1. Candida Pat M.D. 2. Watson Garcia D.O. 3. Jarek DowningOPERATION: Left total shoulder arthroplasty with posteriorly augmentedglenoid component, biceps tenodesis.ANESTHESIA: General anesthesia with regional interscalene nerve block forpostoperative pain control.PREOPERATIVE DIAGNOSIS: Left shoulder primary glenohumeral osteoarthritis.POSTOPERAT AV DIAGNOSIS: Left shoulder primary glenohumeralosteoarthriti s, biceps tendinopathy.OPERATIVE INDICATIONS: The patient is a [...] rotator cuff were found to be intact intraoperatively.Preopera tive range of motion under anesthesia showed passive [...] 48 mm, +7 mm STEPTECH anchor pegglenoid ([employer] STEPTECH APG) was then impacted into [...] humeral implant was, therefore, a 12 stem, hsoigriz124-jeghay neck, with a 52 x 18 mm [...] single rotator interval stitch wasthen passed in vcmaog-mj-ytmgf fashion with a #2 Ticron suture and tieddown to close the lateral rotator interval and set the osteotomy piecesuperiorly. The two #2 Fiberwire sutures coming out of the bicipitalgroove were then sequentially passed in a zhvhcp-te-[id number] fashion medialto the horizontal mattress and sequential [...] the wound was sterilely dressed with Adaptic, 1g7eqcvh, ABD dressing, and Foam tape. The shoulder [...] noneSPECIMENS: noneCOMPLICATIONS: none apparentEric Wicho Perez M.D. [facility] PT EDon 12-29-2017 PT ED HNO ID: [id number] thor: Crystal (Rn) Mario, RNService: NursingAuthor Type: Registered NurseType: Patient EducationFiled: 12/29/2017 12:00 PMNote Text:PRE OP LEARNING ASSESSMENTPROCEDURE/SURGE RY: SURGERY:READINESS TO LEARNCOGNITIVE ABILITY: Alert and orientedMOTIVATION TO LEARN: EagerInterestedFAMILY SUPPORT: High - Very involved in pt carePATIENT LEARNS BEST BY: Multiple MethodsFACTORS AFFECTING LEARNING: NonePHYSICAL LIMITATIONS AFFECTING LEARNING: NoneElectronically Signed By: Crystal Martin RN In Department: [facility] SURGERY / TO COME IN [facility] XR SHOULDER SPECIFY 1V LTon 12-29-2017 XR [...] LOYD MD on Dec 29 2017 5:49PM [id number] Normal [facility] NURSING PROGon 12-08-2017 NURSING PROG HNO ID: [id number] thor: Amaya (Rn) Paula, RNService: (none)Author Type: [...] HPI: DM-oral medication; Current smoker; S/P gastric [id number] Considerations:N/AChart Check:Yoly Mitchell, RNFebruary 2017 9:11 AM Normal [facility] Type and SCR (30D)on 018 ABO/RH(D) Negative [facility] Antibody Screen Negative Normal [facility] HOSPon 11-13-2017 HOSP Patient:Eddi Correa LMRN: Height:5' 11 (1.803 m)Weight:240 lb (108.863 kg)Outpatient Medications as of 12/29/17:oxyCODONE-acetami nophen (PERCOCET) 5-325 mg tabletdocusate sodium (COLACE) 100 [...] (CYTOTEC) 200 mcg tableturea (CARMOL) 40 % lotnclotrimazole-betameth asone (LOTRISONE) creamsildenafil (VIAGRA) 100 mg tablettopiramate (TOPAMAX) 100 mg tablettiZANidine (ZANAFLEX) 4 mg tabletranitidine (ZANTAC) 150 mg tablethydrOXYzine HCl (ATARAX) 50 mg tabletAug Betamethasone Dipropionate (DIPROLENE) 0.05 % ointmentmagnesium hydroxide (MILK OF MAGNESIA) 400 mg/5 mL suspensionbudesonide-form oterol (SYMBICORT) 160-4.5 mcg/actuation inhalerDULoxetine (CYMBALTA) 60 mg capsulesucralfate (CARAFATE) 1 gram tabletMULTIVIT-MIN/FA/LYC OPEN/LUTEIN (CENTRUM SILVER ULTRA MEN'S ORAL)amitriptyline 25 mg ORAL tablettamsulosin (FLOMAX) 0.4 mg ORAL [id number] Sulfate 1.25 mg/3 mL INHALATION nebulizer solutionacarbose(PRECOSE [...] mellitus (HCC) [E11.9]Essential hypertension [I10]Hyperlipidemia [E78.5]Ulcerative lesion [ZKU3073]Allergies:Avelox [Moxifloxacin Hcl]Celebrex [Celecoxib]Erythromycin BaseKlonopin [Clonazepam]Levaquin [Levofloxacin]Date Verified: 12/29/17Lab ValuesLab Value Units Date High LowPOTA* 4.6 mmol/L 12/07/2017 5.1 3.7HEMA* 43.5 % 12/07/2017 51.0 39.0No progress notes entered within the past [address] [facility] Basic Metabolic Panlon 07-02 Anion gap 11 mmol/L Normal 10-20 [facility] Comment on above: Performed By: #### C MP, IRON, CBCDIF ####[place] [id number]#### FERR, HBA1C ####[place] [phone] Calcium 8.0 mg/dL Low 8.5-10.5 [facility] Comment on above: Performed By: #### C MP, IRON, CBCDIF ####[place] [phone]#### FERR, HBA1C ####[place] [phone] Chloride 105 mmol/L Normal 98-110 [facility] Comment on above: Performed By: #### C MP, IRON, CBCDIF ####[place] [phone]#### FERR, HBA1C ####[place] [phone] CO2 23 mmol/L Normal 23-32 [facility] Comment on above: Performed By: #### C MP, IRON, CBCDIF ####[place] [phone]#### FERR, HBA1C ####[place] [phone] Creatinine 1.00 mg/dL Normal 0.70-1.40 [facility] Comment on above: Performed By: #### C MP, IRON, CBCDIF ####[address] #### FERR, HBA1C ####[place] [phone] eGFR (non-black) mL/min/{1.73_m2} Normal >60 [facility] Comment on above: Performed By: #### C MP, IRON, CBCDIF ####[place] [id number]#### FERR, HBA1C ####[place] [phone] Glucose mass conc 112 mg/dL High 65-100 [facility] Comment on above: Performed By: #### C MP, IRON, CBCDIF ####[place] [id number]#### FERR, HBA1C ####[place] [phone] Potassium molar conc 3.7 mmol/L Normal 3.5-5.0 [facility] Comment on above: Performed By: #### C MP, IRON, CBCDIF ####[address] #### FERR, HBA1C ####[place] [phone] Sodium 139 mmol/L Normal 135-146 [facility] Comment on above: Performed By: #### C MP, IRON, CBCDIF ####[address] #### FERR, HBA1C ####[place] [phone] Urea nitrogen 17 mg/dL Normal 10-25 [facility] Comment on above: Performed By: #### C MP, IRON, CBCDIF ####[address] #### FERR, HBA1C ####[facility] [address] [place], [place] [phone] CASE MANAGEMon 07-02-2017 CASE MANAGEM HNO ID: [id number] thor: Kerri () HouseService: Care ManagementAuthor Type: Social WorkerType: Care Mgt Progress NoteFiled: 07/03/2017 9:32 AMNote Text:CARE MANAGEMENT DISCHARGE NOTESERVICE DATE: 07/03/2017SERVICE TIME: LOS: 1 dayAdmission Date: 07/01/2017DISCHARGE ARRANGEMENT (list agency and phone number)Home and Home careProvider: [facility] HANDOFF COMMUNICATION:summary of care sent to [facility] via NPM. Informed [facility] pt d/c yesterday.TRANSPORTATION ARRANGEMENTS:Car via familyADDITIONAL CONTACT RESOURCES:Discharge Information Admission (Discharged) from 07/01/2017 in [facility] 5D Medical Follow-Up Appointment Specialty Ortho [place] Provider Name Swati Senior MD Address [address] [place] [address] Appointment Date 07/21/17 Appointment Time 9:00AM Additonal Instructions Patient should bring the following to appointment:Picture ID, Insurance Card, Copay (if applicable), Medications/Med List,and Hospital Discharge paperwork. Please provide a minimum of 24 hournotice for cancellations/reschedulin g.Needs Prior to Discharge: Ready for DischargeSIGNATURE: LIZETT Sweeney PATIENT NAME: Alisia Correa Sr.DATE: July 03, 2017 : 9:30 AM PAGER/CONTACT #: Normal [facility] CBCon 07-02-2017 Erythrocyte distribution width Auto Ratio (RBC) 13.6 % Normal 11.5-15.0 [facility] Comment on above: Performed By: #### C MP, IRON, CBCDIF ####[facility] [phone]#### FERR, HBA1C ####[facility] [address] [place], [place] [phone] Erythrocytes (RBC) 3.73 10*6/uL Low 4.20-6.00 [facility] Comment on above: Performed By: #### C MP, IRON, CBCDIF ####[place] [phone]#### FERR, HBA1C ####[place] [address] Hematocrit (HCT) 34.4 % Low 39.0-51.0 [facility] Comment on above: Performed By: #### C MP, IRON, CBCDIF ####[place] [phone]#### FERR, HBA1C ####[place] [phone] Hemoglobin mass conc (Bld) 10.9 g/dL Low 13.0-17.0 [facility] Comment on above: Performed By: #### C MP, IRON, CBCDIF ####[place] [phone]#### FERR, HBA1C ####[place] [address] MCH 29.2 pG Normal 26.0-34.0 [facility] Comment on above: Performed By: #### C MP, IRON, CBCDIF ####[place] [phone]#### FERR, HBA1C ####[place] [phone] MCHC mass conc (RBC) 31.7 g/dL Normal 30.5-36.0 [facility] Comment on above: Performed By: #### C MP, IRON, CBCDIF ####[place] [phone]#### FERR, HBA1C ####[place] [phone] MCV 92.2 fL Normal 80.0-100.0 [facility] Comment on above: Performed By: #### C MP, IRON, CBCDIF ####[place] [phone]#### FERR, HBA1C ####[place] [phone] Platelet mean volume (PMV) 12.5 fL Normal 9.0-12.7 [facility] Comment on above: Performed By: #### C MP, IRON, CBCDIF ####[place] [phone]#### FERR, HBA1C ####[place] [phone] Platelets 146 10*3/uL Low 150-400 [facility] Comment on above: Performed By: #### C MP, IRON, CBCDIF ####[place] [phone]#### FERR, HBA1C ####[place] [phone] WBC (Leukocytes) 6.04 10*3/uL Normal 3.70-11.00 [facility] Comment on above: Performed By: #### C MP, IRON, CBCDIF ####[place] [phone]#### FERR, HBA1C ####[place] [phone] CONSULT PROGon 07-02-2017 CONSULT PROG HNO ID: [id number] thor: Sonny Pablo) Luz Elenaervice: Pain ManagementAuthor Type: Physician AssistantType: Consult Progress NoteFiled: 07/02/2017 9:39 AMNote Text:INPATIENT ACUTE PAIN MGMT PROGRESS NOTESPatient Name: Alisia Correa Sr. DATE: July 02, 2017SERVICE TIME: 9:32 AMPRIMARY SERVICE: Ortho and SpineConsult by Dr. Stockton for acute post op painINTERVAL HPI: Is the patient having any pain? Yes LOCATION: R kneePAIN SCALE: 5 on a scale of 0-10PAIN CHARACTER: achingFREQUENCY: (How often does the pain occur?) occurs [id number] WM cc R knee painPERTINENT ROS:denies fever, [...] HISTORYProcedure Laterality Date- COLONOSCOP W/ OR W/O [facility] SPEC Colonoscopy- EGD W/O OR [...] mg cap(s) (FLOMAX) 0.8 mg ORAL AT BEDTIMEfluticasone-vilant naomi 100-25 mcg/dose 1 Inhalation (BREO ELLIPTA) 1Inhalation [...] Abdomen soft, non-tender. Bowel sounds normal. No masses,organomegalyEXTREM ITIES: R knee bandagedNEURO: Motor and Sensory intactDATA:Diagnostic tests reviewed for today's visit:Most recent labsGlucose (mg/dL)Date Value07/02/2017 112 Potassium (mmol/L)Date Value07/02/2017 3.7 Sodium (mmol/L)Date 07/02/2017 139 Chloride (mmol/L)Date 07/02/2017 105 CO2 (mmol/L)Date 07/02/2017 23 Creatinine (mg/dL)Date 07/02/2017 1.00 BUN (mg/dL)Date 07/02/2017 17 Anion Gap (mmol/L)Date 07/02/2017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 daily.Disp: Rfl: 0 06/30/2017 at Unknown timesucralfate (CARAFATE) 1 gram tablet Take 1 tablet by mouth four timesdaily. Disp: Rfl: 0 06/24/2017MULTIVIT-MIN/FA/L YCOPEN/LUTEIN (CENTRUM SILVER ULTRA MEN'S ORAL) Take 1tablet by mouth once daily. Disp: Rfl: 06/24/2017gabapentin (NEURONTIN) 600 mg tablet Take 600 mg by mouth three timesdaily. Take 2 caps 3x/day Disp: Rfl: 06/30/2017 at Unknown timeamitriptyline 25 mg ORAL tablet Take 50 mg by mouth daily at bedtime.Disp: Rfl: 0 06/30/2017 at Unknown timediclofenac-misoprosto l (ARTHROTEC 75) 75-200 mg-mcg ORAL per [...] daily. Disp: Rfl: 0 06/30/2017 at Unknown timeclotrimazole-betameth asone (LOTRISONE) cream Apply to affected area twicedaily. [...] or diarrheaSKIN: Negative for lesions, rash, and itchingHEMATOLOGY/LYMPHOL OGY: Negative for prolonged bleeding, bruising easily orswollen nodesENDOCRINE: Negative for cold or heat intolerance, polyuria, polydipsia andgoiterAll other reviewed and negative other than HPI.PHYSICAL EXAM:Blood pressure 132/75, pulse 71, temperature 36.9 ?C (98.5 ?F),temperature source Oral, resp. rate 18, height 180.3 cm (5' 11 ), odjogt994.4 kg (250 lb), SpO2 98 %.General appearance: [...] mg cap(s) (FLOMAX) 0.8 mg ORAL AT BEDTIMEfluticasone-vilant naomi 100-25 mcg/dose 1 Inhalation (BREO ELLIPTA) 1Inhalation [...] LipImpotence of Organic OriginFrequency of UrinationSlow Urinary StreamMicrostomiaHypertro phy of Prostate With Urinary Obstruction and Other [...] Hernandez, MDDATE: July 01, 2017TIME: 9:01 PM Normal [facility] Glucose POCT (East, [place], [place] A Use Only)on 07-01-2017 Glucose mass conc 103 mg/dL High [address] [place] [address] Comment on above: Performed By: #### C MP, IRON, CBCDIF ####[place] [id number]#### FERR, HBA1C ####[place] [address] Glucose mass conc 128 mg/dL [address] Comment on above: Performed By: #### C MP, IRON, CBCDIF ####[place] [id number]#### FERR, HBA1C ####[place] [address] Glucose mass conc 115 mg/dL [address] Comment on above: Performed By: #### C MP, IRON, CBCDIF ####[place] [id number]#### FERR, HBA1C ####[facility] [address] [place] [address] Glucose mass conc 117 mg/dL [address] Comment on above: Performed By: #### C MP, IRON, CBCDIF ####[place] [phone]#### FERR, HBA1C ####[place] [address] NURSING PROGon 07-01-2017 NURSING PROG HNO ID: [id number] thor: Neetu (Rn) JAMIE Munsonervice: (none)Author Type: Registered NurseType: Nursing Progress NoteFiled: 07/01/2017 7:27 AMNote Text: Nursing Progress NotePatient Name: Alisia Correa Sr. Location: Daily Note:AANDO.Lungs clear. Rt leg pink, warm, brisk refill. Strongdorsiflexion, pos sensation. Rt DP and PT pulses palp. Pain all over fromarthritis 04/27. Numbness/tingling to both feet.This note was completed by: Neetu Munson RN [facility] NURSING PROG HNO ID: [id number] thor: Bambi JerryRn) Sunni, RNService: (none)Author Type: Registered NurseType: Nursing Progress NoteFiled: 07/01/2017 8:21 AMNote Text:Patient transported to the OR via cart, accompanied by Sabrina Shi.Level of consciousness: Alert and Oriented x 3Emotional Status:CalmSensory Impairments: NoLanguage Barrier: NoMobility Impairments: NoAddressed any patient concerns regarding consents, OR environment, andanesthetics.Body temperature maintained by maintaining OR room temperature ibjyebo97-81 degrees F, providing patient with warm bath blankets, limiting areasof exposure and providing warm irrigation fluid. [facility] NURSING PROG HNO ID: [id number] thor: Kaylee JerryRn) Aimee RNService: (none)Author Type: Registered NurseType: Nursing Progress NoteFiled: 07/01/2017 11:13 AMNote Text: Nursing Progress NotePatient Name: Alisia Correa Sr. Location: ROBERT Daily Note:pt to pacu; sleepy. drsg to right [...] note was completed by: Kaylee Yu RN [facility] NURSING PROG HNO ID: [id number] thor: Bambi JerryRn) JAMIE Moellerervice: (none)Author Type: Registered NurseType: Nursing Progress NoteFiled: 07/01/2017 9:56 AMNote Text:Discharge Status:Patient is Awakening, and is no airway issues. Skin condition was WNL andwarm.Transported to recovery room via bed with siderails up. Accompanied byanesthetist and BILL/. [facility] System NURSING PROG HNO ID: [id number] thor: Chato Osborn (Rn) JAMIE Meekservice: NursingAuthor Type: Registered NurseType: Nursing Progress NoteFiled: 07/01/2017 12:08 PMNote Text: Nursing Progress NotePatient Name: Alisia Correa . Location: [id number]_ Daily Note:PT admitted from PACU in bed [...] note was completed by: Chato Meeks RN [facility] OPERATIVE NOon 07-01-2017 OPERATIVE NO HNO ID: [id number] thor: Swati Hansonervice: Orthopaedic SurgeryAuthor Type: PhysicianType: Operative ReportFiled: 07/01/2017 12:16 PMNote Text:OPERATIVE NOTEPATIENT NAME: Alisia Correa Sr. ID: [id number] Date: 07/01/2017Surgeon(s) and Court Registry Officer(s):Surgeon(s) and Role: * Swati Senior - Primary * Tyron Rose - FellowThere were no qualified residents available for this procedure. Pleasebill for Tyron Rose as first assistProcedure(s):Proced ure(s) (LRB):ARTHROPLASTY REPLACE JOINT TOTAL KNEE (Right)BMI: Estimated [...] theoperation and performed all critical portions. The resident/fellow/PAperform ed the closure under supervision, and assisted during theoperation. I was immediately available for the duration of the entirecase.Preop Diagnosis: Pre-Op Diagnosis Codes: * Primary osteoarthritis of right knee [M17.11]Postop Diagnosis: Same as Pre-Op Diagnosis Codes: * Primary osteoarthritis of right knee [M17.11]Findings: OAEBL: 150 ccImplants:Implant Name Type Inv. Item Serial No. Park Guide Lot No. LRB No. UsedPIN TRIATHLON 3IN FIXATION HEADLESS FLUTED KNEE - [id number] Pin PINTRIATHLON 3IN FIXATION HEADLESS FLUTED KNEE STRY/[employer] [id number] TRIATHLON 7 PA FEMORAL CRUCIATE RETAIN BEAD KNEE RIGHT -[id number] Joint - Knee COMPONENT TRIATHLON 7 PA FEMORAL CRUCIATE RETAINBEAD KNEE RIGHT STRY/[employer] [id number] Right 1INSERT TRIATHLON 6 X3 13MM TIBIAL CONDYLAR STABILIZED KNEE - [id number] - Knee INSERT TRIATHLON 6 X3 13MM TIBIAL CONDYLAR STABILIZED KNEESTRY/[employer] [id number] Right 1BASEPLATE TRIATHLON 6 TRITANIUM [id number] TIBIAL 4 CRUCIFORM PEG KEEL KNEE -[id number] Joint - Knee BASEPLATE TRIATHLON 6 TRITANIUM [id number] TIBIAL 4CRUCIFORM PEG KEEL KNEE STRY/[employer] [id number] Right 1COMPONENT TRITANIUM 35MM METAL 10MM PATELLAR ASYMMETRIC KNEE - [id number] - Knee COMPONENT TRITANIUM 35MM METAL 10MM PATELLAR ASYMMETRIC KNEE STRY/[employer] D4Y3 Right 1Problem List:ACTIVE PROBLEM LISTSPRAIN [...] LipImpotence of Organic OriginFrequency of UrinationSlow Urinary StreamMicrostomiaHypertro phy of Prostate With Urinary Obstruction and Other [...] was seen by [facility]/ Internal Medicine for pre-operativeoptimization , and risk assessment. Charley-operative blood management and [...] verified this against the epicondylar axis and Pitkin'sline.The femur was sized and drill holes were [...] placed;excellent fit was confirmed. The medial-lateral and anterior-posteriordimensi ons were checked; anatomic fit and coverage were [...] resected leaving a healthy remnant with greater lvcw98ju thickness. The patella was sized with the [...] 30mg -1cc = injectiontotal volume 45cc.SIGNATURE: Swati Senior, MDDATE: July 01, 2017TIME: 12:16 PM [facility] PT EDon 07-01-2017 PT ED HNO ID: [id number] thor: María (Rn) JAMIE Grubbservice: NursingAuthor Type: Registered NurseType: Patient EducationFiled: 07/01/2017 6:15 AMNote Text:PATIENT EDUCATION TOPIC: PROCEDURE / SURGERY: Pre-op Teaching:Logistics ProtocolsComplication PreventionSurgical Safety PrinciplesPATIENT NAME: Alisia Correa . LOCATION: [place] [address] NESS TO LEARNCOGNITIVE ABILITY: Alert and orientedMOTIVATION TO LEARN: InterestedFAMILY SUPPORT: High - Very involved in pt careINSTRUCTION PROVIDED TO: Patient and family memberPATIENT LEARNS BEST BY: Verbal InstructionFACTORS AFFECTING LEARNING: NonePHYSICAL LIMITATIONS AFFECTING LEARNING: NoneLEARNING RESPONSEDIAGNOSIS: ADULT:PATIENT/FAMILY RESPONSE: Verbalizes understanding of: PRE-OPERATIVEINSTRUCTIONS -Correct action to take to follow pre-operative instructionsMETHOD OF INSTRUCTION: Verbal instructionFOLLOW-UP PLAN: Complete - No need for follow-upINSTRUCTIONAL AIDS USED: NASUPPLEMENTAL MATERIAL PROVIDED TO PATIENT: NoneREFERRAL (RECOMMENDATION): NoneElectronically Signed By: María Grubbs RN [facility] PT ED HNO ID: [id number] thor: Chely (Rn) Jeremy, RNService: (none)Author Type: Registered NurseType: Patient EducationFiled: 07/01/2017 7:12 AMNote Text:PATIENT EDUCATION TOPIC: PROCEDURE / SURGERY: Pre-op Teaching: Post opcarePATIENT NAME: Alisia Correa Sr. LOCATION: [place] [address] NESS TO LEARNCOGNITIVE ABILITY: Alert and orientedMOTIVATION TO LEARN: InterestedFAMILY SUPPORT: Unable to assess - Family not presentINSTRUCTION PROVIDED TO: PatientPATIENT LEARNS BEST BY: Individual InstructionFACTORS AFFECTING LEARNING: NonePHYSICAL LIMITATIONS AFFECTING LEARNING: NoneLEARNING RESPONSEDIAGNOSIS:PATIENT /FAMILY RESPONSE: Verbalizes understanding of: PRE-OPERATIVEINSTRUCTIONS -Correct action to take to follow pre-operative instructionsMETHOD OF INSTRUCTION: Individual instructionFOLLOW-UP PLAN: Complete - No need for follow-upINSTRUCTIONAL AIDS USED: NASUPPLEMENTAL MATERIAL PROVIDED TO PATIENT: NoneREFERRAL (RECOMMENDATION): NoneElectronically Signed By: Chely Luna RN [facility] THERAPY NTon 07-01-2017 THERAPY NT HNO ID: [id number] thor: Nellie (Pt) JesúsyService: Physical TherapyAuthor Type: Physical TherapistType: Therapy (PT/OT/Speech/Resp)Filed: 07/01/2017 4:47 PMNote Text:Physical Therapy EvaluationSERVICE DATE: 07/01/2017SERVICE TIME: 1545 to 1630ROOM: [id number] Discharge Disposition: Home PTAnticipated Discharge Needs: Physical Assist at Home;Supervision at HomePhysical Assist at Home for: StairsRecommended Discharge Equipment: No equipment needs anticipatedPT Recommendations to Nursing: Ambulate with device;To bathroom;Inhalls;With assist of 1 person;OOB for mealsAmbulation Device: Wheeled WalkerPT 6 Clicks Score: 20Precautions/Activity Restrictions: Total Knee Replacement;Weight BearingRestrictionsPrecau tion/Activity Restriction Comments: ambulate on unit with walker [...] SessionPhysical Therapy Problem List: Pain;Impaired Self Care;Decreased ActivityTolerance;Decreas ed Strength;Decreased Range Of Motion;Functional MobilityImpairment;Balanc e ImpairedPatient /Caregiver Goals: Walk;Go HomeGoals for Plan [...] Current admissionTreatment Interventions: Education;Self Care / Home Management;EnergyConserva tion Training;Joint Mobility;Strengthening;Fu nctional MobilityTraining;Balance TrainingPlan of Care developed with: PatientTREATMENT INTERVENTIONS:Therapy Diagnosis: Reduced mobility-otherInterventio ns Provided: Evaluation;Gait Training (54763);TherapeuticActivi ty (56180)$ Evaluation-Low (78151) Billed Units: 1 unitTherapeutic Activity (75101) Treatment Minutes: 121 unitSkilled Intervention(s): Instructed patient in supine to sit pushing withupper extremities to sit upEducation with POC, precautions, TKR booklet, nonpharm pain controltechniques, toileting, assisted to jose underwear, home management and setupGait Training (18588) Treatment Minutes: 131 unitSkilled Intervention(s): Instruction in [...] Walking and Moving Around Current Status (G8978): (545)Mobility: Walking and Moving Around Goal Status (G8979): ()Based on clinical assessment and the score on the 6 Clicks FunctionalAssessment Tool, the G code and corresponding severity modifiers aredocumented above.SUBJECTIVE:Current Hospital Course: Chart reviewed; 56 y.o male amditted 07/01/17 s/pR TKR. [facility] icnludes OA, YOLA, gastric bypass, L TKR 10/07/2013, L TKRrevision 04/27/17Patient Report: Everything went well after my knee revision (left) thisapril Home EnvironmentPatient Lives With: Significant OtherAssistance Available: PRNEntry To Home: StairsNumber Of Stairs Into Home: 2 (platform)Number Of Stairs To Bed/Bath: 0Equipment Owned: Cane;Wheeled WalkerPrior Functional Level: Within Functional Limits (ambulated with cane vswalker)OBJECTIVE:ALFONSO Molina FUNCTIONAL STATUS:Current Functional Mobility Assist Level Additional [...] documentation flowsheet forcomplete details for this therapy evaluation/treatment.SIGN ATURE: Nellie David PT PATIENT NAME: Alisia Correa Sr.DATE: July 01, 2017 : 4:41 PM PAGER/CONTACT #: [phone] [facility] NURSING PROGon 06-19-2017 NURSING PROG HNO ID: [id number] thor: Renae Cox (Rn) Burak, RNService: (none)Author Type: Registered NurseType: Nursing Progress NoteFiled: 06/19/2017 10:02 AMNote Text:PACC visit 06/17/17. H/O SDM,BMI35,YOLA,COPD/asthma . 06/17/17 nasalcANDs(-),ts,ferritin a1c, cbc/d,bmp,iron studies. 04/15/17 ekg. 05/20/17 kneexr. Chart check complete. Penleope HAMILTON [facility] CBC and Differentialon 06-17 Abs Baso 0.03 k/uL Normal 0.00-0.10 [facility] Comment on above: Performed By: #### C MP, IRON, CBCDIF ####[place] [id number]#### FERR, HBA1C ####[facility] [place] [phone] Abs Sp[place] 0.35 k/uL Normal 0.00-0.86 [facility] Comment on above: Performed By: #### C MP, IRON, CBCDIF ####[place] [id number]#### FERR, HBA1C ####[facility] [address] [place] [phone] Abs Neut 2.15 k/uL Normal 1.45-7.50 [facility] Comment on above: Performed By: #### C MP, IRON, CBCDIF ####[place] [id number]#### FERR, HBA1C ####[place] [id number] [place] [phone] Basophils/100 WBC Auto (Bld) 0.8 % Normal [facility] Comment on above: Performed By: #### C MP, IRON, CBCDIF ####[place] [id number]#### FERR, HBA1C ####[place] [address] [address] [place] [phone] Eosinophils 0.19 10*3/uL Normal 0.00-0.45 [facility] Comment on above: Performed By: #### C MP, IRON, CBCDIF ####[place] [id number]#### FERR, HBA1C ####[place] [address] [address] [place] [phone] Eosinophils/100 leukocytes 4.9 % Normal [facility] Comment on above: Performed By: #### C MP, IRON, CBCDIF ####[place] [id number]#### FERR, HBA1C ####[place] [address] [address] [place] [phone] Erythrocyte distribution width Auto Ratio (RBC) 14.3 % Normal 11.5-15.0 [facility] Comment on above: Performed By: #### C MP, IRON, CBCDIF ####[place] [id number]#### FERR, HBA1C ####[place] [address] [address] [phone] Erythrocytes (RBC) 0.0 /100 WBC Normal 0 [facility] Comment on above: Performed By: #### C MP, IRON, CBCDIF ####[place] [id number]#### FERR, HBA1C ####[place] [address] [address] [place] [phone] Erythrocytes (RBC) 4.35 10*6/uL Normal 4.20-6.00 [facility] Comment on above: Performed By: #### C MP, IRON, CBCDIF ####[address] #### FERR, HBA1C ####[place] [phone] Hematocrit (HCT) 40.0 % Normal 39.0-51.0 [facility] Comment on above: Performed By: #### C MP, IRON, CBCDIF ####[place] 0453013216-363-2018#### FERR, HBA1C ####[place] [phone] Hemoglobin mass conc (Bld) 12.8 g/dL Low 13.0-17.0 [facility] Comment on above: Performed By: #### C MP, IRON, CBCDIF ####[address] #### FERR, HBA1C ####[place] [phone] Lymphocytes 1.14 10*3/uL Normal 1.00-4.00 [facility] Comment on above: Performed By: #### C MP, IRON, CBCDIF ####[address] #### FERR, HBA1C ####[place] [address] [address] [phone] Lymphocytes/100 leukocytes 29.5 % Normal [facility] Comment on above: Performed By: #### C MP, IRON, CBCDIF ####[address] #### FERR, HBA1C ####[address] [phone] MCH 29.4 pG Normal 26.0-34.0 [facility] Comment on above: Performed By: #### C MP, IRON, CBCDIF ####[place] [id number]#### FERR, HBA1C ####[place] [address] [address] [place] [phone] MCHC mass conc (RBC) 32.0 g/dL Normal 30.5-36.0 [facility] Comment on above: Performed By: #### C MP, IRON, CBCDIF ####[place] [address]3013216-363-2018#### FERR, HBA1C ####[phone] MCV 92.0 fL Normal 80.0-100.0 [facility] Comment on above: Performed By: #### C MP, IRON, CBCDIF ####[place] [id number]#### FERR, HBA1C ####[address] Av[address] [place] [phone] Monocytes/100 leukocytes 9.1 % Normal [facility] Comment on above: Performed By: #### C MP, IRON, CBCDIF ####[place] [id number]#### FERR, HBA1C ####[place] [address] [address] [place] [phone] Neutrophils/100 WBC Auto (Bld) 55.7 % Normal [facility] Comment on above: Performed By: #### C MP, IRON, CBCDIF ####[address] #### FERR, HBA1C ####[place] [address] [address] [phone] Platelet mean volume (PMV) 12.3 fL Normal 9.0-12.7 [facility] Comment on above: Performed By: #### C MP, IRON, CBCDIF ####[address] #### FERR, HBA1C ####[address] [place] [phone] Platelets 176 10*3/uL Normal 150-400 [facility] Comment on above: Performed By: #### C MP, IRON, CBCDIF ####[place] [id number]#### FERR, HBA1C ####[place] [phone] WBC (Leukocytes) 3.86 10*3/uL Normal 3.70-11.00 [facility] Comment on above: Performed By: #### C MP, IRON, CBCDIF ####[address] #### FERR, HBA1C ####[place] [phone] Comp Metabolic Panelon 06-17 Alanine aminotransferase (ALT) 14 U/L Normal 5-50 [facility] Comment on above: Performed By: #### C MP, IRON, CBCDIF ####[address] #### FERR, HBA1C ####[place] [address] [address] [phone] Albumin 4.1 g/dL Normal 3.5-5.0 [facility] Comment on above: Performed By: #### C MP, IRON, CBCDIF ####[address] #### FERR, HBA1C ####[address] [place] [phone] Alkaline phosphatase (ALP) 95 U/L Normal 40-150 [facility] Comment on above: Performed By: #### C MP, IRON, CBCDIF ####[place] [id number]#### FERR, HBA1C ####[address] [place] [phone] Anion gap 11 mmol/L Normal 10-20 [facility] Comment on above: Performed By: #### C MP, IRON, CBCDIF ####[place] [id number]#### FERR, HBA1C ####[address] [place] [address] Aspartate aminotransferase (AST) 18 U/L Normal 7-40 [facility] Comment on above: Performed By: #### C MP, IRON, CBCDIF ####[place] [id number]#### FERR, HBA1C ####[address] [place] [address] Bilirubin (total) 0.2 mg/dL Normal 0.0-1.5 [facility] Comment on above: Performed By: #### C MP, IRON, CBCDIF ####[address] #### FERR, HBA1C ####[address] [place] [address] Calcium 9.2 mg/dL Normal 8.5-10.5 [facility] Comment on above: Performed By: #### C MP, IRON, CBCDIF ####[address] #### FERR, HBA1C ####[place] [address] [address] [phone] Chloride 104 mmol/L Normal 98-110 [facility] Comment on above: Performed By: #### C MP, IRON, CBCDIF ####[place] [id number]#### FERR, HBA1C ####[place] [address] [address] [phone] CO2 25 mmol/L Normal 23-32 [facility] Comment on above: Performed By: #### C MP, IRON, CBCDIF ####[place] 0453013216-363-2018#### FERR, HBA1C ####[place] [phone] Creatinine 1.07 mg/dL Normal 0.70-1.40 [facility] Comment on above: Performed By: #### C MP, IRON, CBCDIF ####[place] [id number]#### FERR, HBA1C ####[place] [phone] eGFR (non-black) mL/min/{1.73_m2} Normal >60 [facility] Comment on above: Performed By: #### C MP, IRON, CBCDIF ####[place] [id number]#### FERR, HBA1C ####[place] [phone] Glucose mass conc 83 mg/dL Normal 65-100 [facility] Comment on above: Performed By: #### C MP, IRON, CBCDIF ####[place] [id number]#### FERR, HBA1C ####[address] Potassium molar conc 4.4 mmol/L Normal 3.5-5.0 [facility] Comment on above: Performed By: #### C MP, IRON, CBCDIF ####[place] [phone]#### FERR, HBA1C ####[place] [phone] Protein 7.1 g/dL Normal 6.0-8.4 [facility] Comment on above: Performed By: #### C MP, IRON, CBCDIF ####[place] 0453013216-363-2018#### FERR, HBA1C ####[address] [place] [phone] Sodium 140 mmol/L Normal 135-146 [facility] Comment on above: Performed By: #### C MP, IRON, CBCDIF ####[place] [id number]#### FERR, HBA1C ####[place] [phone] Urea nitrogen 18 mg/dL Normal 10-25 [facility] Comment on above: Performed By: #### C MP, IRON, CBCDIF ####[place] [id number]#### FERR, HBA1C ####[place] [phone] Ferritinon 06-17-2017 Ferritin 45.3 ng/mL Normal 30.3-565.7 [facility] Comment on above: Performed By: #### C MP, IRON, CBCDIF ####[place] [id number]#### FERR, HBA1C ####[place] [phone] Hemoglobin A1con 06-17-2017 Glucose mass conc 105 mg/dL Normal [facility] Comment on above: Result Comment: eAG: (Estimated average glucose) is a calculated value from HgbA1c and is admissions representative of the average blood glucose level in the last 2-3 month period. Performed By: #### C MP, IRON, CBCDIF ####[address] #### FERR, HBA1C ####[place] [phone] Hemoglobin A1c/Hemoglobin.total mass fraction (Bld) 5.3 % Normal 4.3-5.6 [facility] Comment on above: Performed By: #### C MP, IRON, CBCDIF ####[address] #### FERR, HBA1C ####[address] [place] [phone] Iron and TIBCon 06-17-2017 Iron 42 ug/dL Normal 35-150 [facility] Comment on above: Performed By: #### C MP, IRON, CBCDIF ####[address] #### FERR, HBA1C ####[place] [phone] TIBC 335 ug/dL Normal 250-450 [facility] Comment on above: Performed By: #### C MP, IRON, CBCDIF ####[address] #### FERR, HBA1C ####[place] [phone] Transferrin Saturatn 13 % Low 20-55 [facility] Comment on above: Performed By: #### C MP, IRON, CBCDIF ####[address] #### FERR, HBA1C ####[address] [place] [place] [phone] Staph aureus PCRon 7 MRSA PCR Negative Normal [facility] Comment on above: Performed By: #### S APCR ####[address] [phone] S aureus Spec Source Nasal [facility] Comment on above: Performed By: #### S APCR ####[place] [phone] Staph aureus PCR Negative [facility] Comment on above: Performed By: #### S APCR ####[place] [id number] [phone] Type and SCR (30D)on 017 ABO/RH(D) Negative [facility] Comment on above: Performed By: #### T SCR30 ####[address] [phone] Antibody Screen Negative [facility] Comment on above: Performed By: #### T SCR30 ####[address] [phone] HOSPon 05-20-2017 HOSP Patient:Eddi Correa Sr.MRN: Height:5' 11 (1.803 m)Weight:250 lb (113.399 kg)Outpatient Medications as of 07/01/17:oxyCODONE IR (ROXICODONE) 5 mg immediate release tabletDexlansoprazole (DEXILANT) 60 mg CpDMmiSOPROStol (CYTOTEC) 200 mcg tableturea (CARMOL) 40 % lotnclotrimazole-betameth asone (LOTRISONE) creammupirocin (BACTROBAN) 2 % ointmentsildenafil (VIAGRA) [...] mL suspensionmupirocin (BACTROBAN NASAL) 2 % nasal ointmentbudesonide-formot naomi (SYMBICORT) 160-4.5 mcg/actuation inhalerDULoxetine (CYMBALTA) 60 mg capsulesucralfate (CARAFATE) 1 gram tabletMULTIVIT-MIN/FA/LYC OPEN/LUTEIN (CENTRUM SILVER ULTRA MEN'S ORAL)gabapentin (NEURONTIN) 600 mg tabletaspirin, enteric coated (ECOTRIN LOW STRENGTH) 81 mg ORAL EC tabletamitriptyline 25 mg ORAL tabletdiclofenac-misopros dirk (ARTHROTEC 75) 75-200 mg-mcg ORAL per tablettamsulosin (FLOMAX) 0.4 mg ORAL Lw77Lwmlsogqo Sulfate 1.25 mg/3 mL INHALATION nebulizer solutionALBUTEROL [...] 40.0 % 06/17/2017 51.0 39.0Progress Notes (PT [facility]):Nisa Jackman PT 06/24/2017 10:58 AM SignedPatient was seen for TKR measurements today.See flowsheet data for results of measurement.Nisa Jackman, PT, DPTProgress Notes (PRE ANES [facility]'S WITNESS):Lily Porras CNP 06/17/2017 1:29 PM SignedHISTORY AND PHYSICAL EXAMINATIONSERVICE DATE: 06/17/2017SERVICE TIME: 9:03 AMPRICLEARSKY REHABILITATION H[facility] AVONDALEY CARE PHYSICIAN: NANCY Wolf FOR VISIT:Alisia Correa . is a 56 year old male who is scheduled for right total kneearthroplasty at the request of Dr. Swati Senior for consultation. My finalrecommendation will be communicated [...] LipImpotence of Organic OriginFrequency of UrinationSlow Urinary StreamMicrostomiaHypertro phy of Prostate With Urinary Obstruction and Other [...] revision 5 years later.Referred back to Dr Senior for eval/treatment, who recommends Right TKR.PAST MEDICAL [...] HISTORYProcedure Laterality Date- COLONOSCOP W/ OR W/O [facility] SPEC Colonoscopy- EGD W/O OR [...] to scheduled surgery and includingmorning of scheduled surgery.budesonide-formot naomi (SYMBICORT) 160-4.5 mcg/actuation inhaler Inhale 2 Puffsas instructed twice daily.DULoxetine (CYMBALTA) 60 mg capsule Take 1 capsule by mouth once daily.sucralfate (CARAFATE) 1 gram tablet Take 1 tablet by mouth four times daily.MULTIVIT-MIN/FA/LYC OPEN/LUTEIN (CENTRUM SILVER ULTRA MEN'S ORAL) Take 1 tabletby mouth once daily.aspirin, enteric coated (ECOTRIN LOW STRENGTH) 81 mg ORAL EC tablet Take 81 mgby mouth once daily.amitriptyline 25 mg ORAL tablet Take 50 mg by mouth daily at bedtime.diclofenac-misopr ostol (ARTHROTEC 75) 75-200 mg-mcg ORAL per tablet [...] three timesdaily.Medication Comments documented by Carla Edwards LPN on 04/15/2017 [id number].Pt reports ALL Medications are accurate 04/15/17CURRENT ALLERGIES:ALLERGIESAllerg en Reactions- Avelox [Moxifloxaci* Rash, Hives, Itching, Shortness of Breath- Celebrex [Celecoxib] Rash, Hives, GI Upset- Erythromycin Base Hives, Shortness of Breath- Klonopin [Clonazepa* Itching- Levaquin [Levofloxa* HivesREVIEW OF SYSTEMS:PAIN ASSESSMENT: PainPain Score: 5/10Pain Location: Knee-RightDescription: Dull;AchingDuration Amount of Time: 1Duration Units: YearsFrequency: ContinuousIntervention: ColdGeneral: No weight loss, malaise or fevers.Neuro: No history of TIA's, stroke, DUMPSTER DRIVER tumor, impaired sensorium, hemiplegia,paraplegia or quadraplegia. No neurological symptoms or problems., Postive forNo history of TIA's, stroke, DUMPSTER DRIVER tumor, impaired sensorium, hemiplegia,paraplegia or quadraplegia. No neurological symptoms or problems.Respiratory: Positive for Asthma, Mild COPD: daily inhalers + prn. Smoker. YOLA(doesn not use cpap)Cardiovascular: No history of HTN requiring medication, no history of angina,CHF, [place], cardiac surgery or stents. Denies rest pain, gangrene orrevascularization/amput ation for PVD. No history of cardiovascular symptoms [...] BMP (glucose: 123, ca: 8.2)Most recent ek04/15/2017 (SB)AssessmentASSESSMENTT here is no known pertinent medical condition which may affect charley-operativecourseCOPD/ Asthma - daily inhalers + PRN inhaler.Smoker - [...] 17, 2017 : 9:03 AM PAGER/CONTACT #: [phone] Ellis, CNP 06/17/2017 9:48 AM AddendumPATIENT PREOPERATIVE INSTRUCTIONSSwati Senior MD has scheduled you for your procedure at this surgerycenter:[facility]: [phone] --[address] [place] [address].You will need to call the day prior [...] jello) until 2hours before scheduled arrival at facility.Medications:Appr cole medications to take the morning of surgery [...] surgery.- NO jewelry, body piercings, makeup, nail tuvaluan, hairpins or contacts are nirmal worn the day of surgery.- CHG wipes provided with instructions.- Glucerna, one can daily the five consecutive days prior to your surgery.If you develop symptoms such as a fever, cold, or flu, or have other changes toyour health within TWO DAYS of scheduled surgery or the morning of surgery,please contact the surgery center above.Personal Belongings:- Leave ALL valuables and money at home or with family members. Arrival Time for Surgery:- You MUST call [facility] the afternoon before surgery [...] dates and timesprovided. Ny Chao LPN [facility] Social History Date Type Detail Facility Start: 07-02-2023 End: 11-16-2023 Alcohol intake Ex-drinker (finding) [facility] Start: 01-16-2023 End: 03-15-2024 Tobacco smoking status Ex-smoker (finding) [facility] Start: 02-09-2022 Alcohol intake Lifetime non-d margarita (finding) [employer] Work Phone: Start: 05-29-2020 End: 10-10-2021 Alcohol intake Current non-drinker of alcohol (finding) [facility] Start: 02-03-2021 Tobacco Comment 8 cigs per day [facility] Start: 06-21-2020 Tobacco Comment currently 8 ci garettes a day [facility] Start: 05-22-2020 End: 02-07-2022 Exposure to SARS-CoV-2 (event) Not sure [facility] Start: 05-05-2020 End: 06-04-2020 Exposure to SARS-CoV-2 (event) Unable to assess [facility] Start: 05-04-2020 End: 11-25-2022 History SDOH Financial 4 [facility] Start: 05-04-2020 End: 11-25-2022 History SDOH Food Worry 1 [facility] Start: 05-04-2020 End: 11-25-2022 History SDOH Transport Med 2 [facility] Start: 04-24-2020 Tobacco Comment currently 1/2 pack day since 01/2020 [facility] Start: 05-12-2019 End: 11-08-2020 Sex Assigned At [facility] Start: 04-15-2017 End: 11-08-2020 No alcohol use No alcohol use [facility] Comment on above: Coffee 3 cups daily; 6 ciggs daily; Start: 04-15-2017 End: 02-03-2021 Tobacco smoking status NHIS Smokes tobacco daily [facility] Start: 04-15-2017 End: 02-03-2021 Tobacco use and exposure Smokeless tobacco non-user [facility] Start: 12-07-1982 History of tobacco use Cigarette Smo ker [facility] Start: 1960 Sex Assigned At Not on file [facility] Start: 1960 Sex Assigned At Male F [facility] Start: Smoker [employer] Tobacco smoking status Never [facility] How hard is it for y ou to pay for the very basics like food, housing, medical care, and heating Not very hard [facility] (I/We) worried heriberto er (my/our) food would run out before (I/we) got money to buy more. Never true [facility] Vital Signs Date Time Vital Sign Value Performing Clinician Facility 03-15-2024 11:18-0400 Blood Pressure Location Pippa Orzech [facility] 03-15-2024 11:18-0400 Body temperature 98.24 [degF] Pippa Orzech [facility] 03-15-2024 11:18-0400 Diastolic blood pressure 88 mm[Hg] Pippa Orzech [facility] 03-15-2024 11:18-0400 Heart rate 73 /min Pippa Orzech [facility] 03-15-2024 11:18-0400 Respiratory rate 16 /min Pippa Orzech [facility] 03-15-2024 11:18-0400 Systolic blood pressure 138 mm[Hg] Pippa Orzech [facility] 02-11-2024 10:18-0400 Diastolic blood pressure 80 mm[Hg] DO Ellen Kuns Work Phone: [facility] 02-11-2024 10:18-0400 Heart rate 60 /min DO Ellen Kuns Work Phone: [facility] 02-11-2024 10:18-0400 Respiratory rate 16 /min DO Ellen Kuns Work Phone: [facility] 02-11-2024 10:18-0400 SaO2% (BldA) [Mass fraction] 97 % DO [employer] Work Phone: [facility] 02-11-2024 10:18-0400 Systolic blood pressure 139 mm[Hg] DO Ellen Kuns Work Phone: [facility] 02-11-2024 08:29-0400 Body height 177.8 cm DO Ellen Breakers Work Phone: [facility] 02-11-2024 08:29-0400 Body weight 95.25 kg DO Ellen Breakers Work Phone: [facility] 02-10-2024 13:09-0400 Body height 180.34 cm [facility] 02-10-2024 13:09-0400 Body mass index (BMI) [Ratio] 29.2 kg/m2 [facility] 02-10-2024 13:09-0400 Body weight 95.25 kg [facility] 02-10-2024 13:09-0400 Diastolic blood pressure 60 mm[Hg] [facility] 02-10-2024 13:09-0400 Heart rate 67 /min [facility] 02-10-2024 13:09-0400 Respiratory rate 16 /min [facility] 02-10-2024 13:09-0400 SaO2% (BldA) [Mass fraction] 97 % [facility] 02-10-2024 13:09-0400 Systolic blood pressure 112 mm[Hg] [facility] 01-22-2024 08:59-0400 Body height 180.34 cm [facility] 01-22-2024 08:59-0400 Body mass index (BMI) [Ratio] 27.8 kg/m2 [facility] 01-22-2024 08:59-0400 Body weight 90.71 kg [facility] 01-22-2024 08:59-0400 Diastolic blood pressure 62 mm[Hg] [facility] 01-22-2024 08:59-0400 Heart rate 62 /min [facility] 01-22-2024 08:59-0400 Systolic blood pressure 112 mm[Hg] [facility] 11-16-2023 13:17-0500 Diastolic blood pressure 82 mm[Hg] Loree SPEARS Work Phone: [employer] 11-16-2023 13:17-0500 Heart rate 58 /min Loree SPEARS Work Phone: [employer] 11-16-2023 13:17-0500 Systolic blood pressure 144 mm[Hg] [facility] 11-10-2023 14:30-0500 Body height 180.34 cm Ellen Kuns Other [facility] 11-10-2023 14:30-0500 Diastolic blood pressure 80 mm[Hg] Ellen Kuns Other [facility] 11-10-2023 14:30-0500 Respiratory rate 16 /min Ellen Kuns Other [employer] Other 11-10-2023 14:30-0500 SaO2% (BldA) [Mass fraction] 94 % Ellen Kuns Other [employer] Other 11-10-2023 14:30-0500 Systolic blood pressure 128 mm[Hg] Ellen Kuns Other [facility] 09-02-2023 13:45-0500 Body height 180.34 cm Ellen Kuns Other [employer] Other 09-02-2023 13:45-0500 Diastolic blood pressure 62 mm[Hg] Ellen Kuns Other [employer] Other 09-02-2023 13:45-0500 Respiratory rate 18 /min Ellen Kuns Other [employer] Other 09-02-2023 13:45-0500 SaO2% (BldA) [Mass fraction] 97 % Ellen Kuns Other [employer] Other 09-02-2023 13:45-0500 Systolic blood pressure 92 mm[Hg] Ellen Kuns Other [employer] Other 05-19-2023 15:15-0400 Body height 180.34 cm Ellen Kuns Other [employer] Other 05-19-2023 15:15-0400 Diastolic blood pressure 60 mm[Hg] Ellen Kuns Other [employer] Other 05-19-2023 15:15-0400 Respiratory rate 18 /min Ellen Kuns Other [employer] Other 05-19-2023 15:15-0400 SaO2% (BldA) [Mass fraction] 98 % Ellen Kuns Other [employer] Other 05-19-2023 15:15-0400 Systolic blood pressure 80 mm[Hg] Ellen Kuns Other [employer] Other 03-20-2023 09:06-0400 Blood Pressure Location Fidel IBARRA [facility] 03-20-2023 09:06-0400 Diastolic blood pressure 78 mm[Hg] Fidel IBARRA [facility] 03-20-2023 09:06-0400 Heart rate 70 /min Fidel IBARRA [facility] 03-20-2023 09:06-0400 Respiratory rate 16 /min Fidel IBARRA [facility] 03-20-2023 09:06-0400 Systolic blood pressure 132 mm[Hg] Fidel IBARRA [facility] 02-20-2023 09:33-0400 Blood Pressure Location Fiedl IBARRA [facility] 02-20-2023 09:33-0400 Diastolic blood pressure 78 mm[Hg] Fidel IBARRA [facility] 02-20-2023 09:33-0400 Heart rate 68 /min Fidel IBARRA [facility] 02-20-2023 09:33-0400 Respiratory rate 16 /min Fidel IBARRA [facility] 02-20-2023 09:33-0400 Systolic blood pressure 130 mm[Hg] Fidel IBARRA [facility] 01-30-2023 11:54-0400 Blood Pressure Location Fidel IBARRA [facility] 01-30-2023 11:54-0400 Diastolic blood pressure 72 mm[Hg] Fidel IBARRA [facility] 01-30-2023 11:54-0400 Heart rate 68 /min Fidel IBARRA [facility] 01-30-2023 11:54-0400 Respiratory rate 16 /min Fidel IBARRA [facility] 04-14-2023 11:54-0400 Systolic blood pressure 99 mm[Hg] Fidel IBARRA [facility] 11-11-2022 15:00-0500 Body height 180.34 cm Ellenshayna Bordens Other [employer] Other 11-11-2022 15:00-0500 Body mass index (BMI) [Ratio] 28.59 kg/m2 Ellen Michis Other [employer] Other 11-11-2022 15:00-0500 Body temperature 95.6 [degF] Ellen Mihcis Other [employer] Other 11-11-2022 15:00-0500 Body weight 92.99 kg Ellen Michis Other [employer] Other 11-11-2022 15:00-0500 Diastolic blood pressure 56 mm[Hg] Ellen Kuns Other [employer] Other 11-11-2022 15:00-0500 Respiratory rate 18 /min Ellen Michis Other [employer] Other 11-11-2022 15:00-0500 SaO2% (BldA) [Mass fraction] 99 % Ellen Michis Other [employer] Other 11-11-2022 15:00-0500 Systolic blood pressure 80 mm[Hg] Ellen Kuns Other [employer] Other 09-02-2022 14:45-0500 Body height 180.34 cm Ellen Michis Other [employer] Other 09-02-2022 14:45-0500 Body mass index (BMI) [Ratio] 27.19 kg/m2 Ellenshayna Bordens Other [employer] Other 09-02-2022 14:45-0500 Body weight 88.45 kg Ellen Kuns Other [employer] Other 09-02-2022 14:45-0500 Diastolic blood pressure 60 mm[Hg] Ellen Kuns Other [employer] Other 09-02-2022 14:45-0500 Respiratory rate 18 /min Ellen Michis Other [employer] Other 09-02-2022 14:45-0500 SaO2% (BldA) [Mass fraction] 92 % Ellen Micihs Other [employer] Other 09-02-2022 14:45-0500 Systolic blood pressure 92 mm[Hg] Ellen Michis Other [employer] Other 02-18-2022 09:29-0400 Diastolic blood pressure 55 mm[Hg] Frank Reddy MD Work Phone: [employer] 02-18-2022 09:29-0400 Systolic blood pressure 105 mm[Hg] Frank Reddy MD Work Phone: [employer] 02-18-2022 08:30-0400 Body temperature 97.9 [degF] Frank Reddy MD Work Phone: [employer] 02-18-2022 08:30-0400 Heart rate 75 /min Frank Reddy MD Work Phone: [employer] 02-18-2022 08:30-0400 Respiratory rate 18 /min Frank Reddy MD Work Phone: [employer] 02-18-2022 08:30-0400 SaO2% (BldA) [Mass fraction] 97 % Frank Reddy MD Work Phone: [employer] 02-09-2022 05:15-0400 Body mass index (BMI) [Ratio] 34.44 kg/m2 Frank Reddy MD Work Phone: [employer] 02-09-2022 05:15-0400 Body weight 108.86 kg Frank Reddy MD Work Phone: [employer] 02-07-2022 09:09-0400 Body height 177.8 cm Frank Reddy MD Work Phone: [employer] 01-27-2022 10:15-0400 Body height 180.34 cm Ellen Crabtree Other [employer] Other 01-27-2022 10:15-0400 Body mass index (BMI) [Ratio] 29.15 kg/m2 Ellen Breakers Other [employer] Other 01-27-2022 10:15-0400 Body weight 94.8 kg Ellen Kuns Other [employer] Other 01-27-2022 10:15-0400 Diastolic blood pressure 70 mm[Hg] Ellen Kuns Other [employer] Other 01-27-2022 10:15-0400 Respiratory rate 18 /min Ellen Kuns Other [employer] Other 01-27-2022 10:15-0400 SaO2% (BldA) [Mass fraction] 98 % Ellen Kuns Other [employer] Other 01-27-2022 10:15-0400 Systolic blood pressure 98 mm[Hg] Ellen Kuns Other [employer] Other 12-05-2021 15:00-0500 Body height 180.34 cm Ellen Michis Other [employer] Other 12-05-2021 15:00-0500 Body mass index (BMI) [Ratio] 29.43 kg/m2 Ellen Michis Other [employer] Other 12-05-2021 15:00-0500 Body weight 95.71 kg Ellen Kuns Other [employer] Other 12-05-2021 15:00-0500 Diastolic blood pressure 70 mm[Hg] Ellen Michis Other [employer] Other 12-05-2021 15:00-0500 Respiratory rate 18 /min Ellen Michis Other [employer] Other 12-05-2021 15:00-0500 SaO2% (BldA) [Mass fraction] 99 % Ellen Michis Other [employer] Other 12-05-2021 15:00-0500 Systolic blood pressure 106 mm[Hg] Ellen Michis Other [employer] Other 12-03-2021 16:32-0500 Body height 177.8 cm [facility] 12-03-2021 16:32-0500 Body mass index (BMI) [Ratio] 30.42 kg/m2 [facility] 12-03-2021 16:32-0500 Body surface area Derived from formula 2.18 m2 [facility] 12-03-2021 16:32-0500 Body weight 96.16 kg [facility] 12-03-2021 16:32-0500 Diastolic blood pressure 62 mm[Hg] [facility] 12-03-2021 16:32-0500 Heart rate 80 /min [facility] 12-03-2021 16:32-0500 Systolic blood pressure 102 mm[Hg] [facility] 11-19-2021 14:44-0500 Body height 177.8 cm [facility] 11-19-2021 14:44-0500 Body mass index (BMI) [Ratio] 31.18 kg/m2 [facility] 11-19-2021 14:44-0500 Body surface area Derived from formula 2.21 m2 [facility] 11-19-2021 14:44-0500 Body weight 98.57 kg [facility] 11-19-2021 14:44-0500 Diastolic blood pressure 70 mm[Hg] [facility] 11-19-2021 14:44-0500 Heart rate 64 /min [facility] 11-19-2021 14:44-0500 Systolic blood pressure 110 mm[Hg] [facility] 09-05-2021 12:00-0500 58 1 Ellen Crabtree Work Phone: [facility] [address] [place] Work Phone: Comment on above: [id number] 08-27-2021 11:30-0500 Body height 180.34 cm Ellen Kuns Other [employer] Other 08-27-2021 11:30-0500 Body mass index (BMI) [Ratio] 31.24 kg/m2 Ellen Kuns Other [employer] Other 08-27-2021 11:30-0500 Body weight 101.61 kg Ellen Kuns Other [employer] Other 08-27-2021 11:30-0500 Diastolic blood pressure 68 mm[Hg] Ellen Kuns Other [employer] Other 08-27-2021 11:30-0500 Respiratory rate 18 /min Ellen Kuns Other [employer] Other 08-27-2021 11:30-0500 SaO2% (BldA) [Mass fraction] 98 % Ellen Kuns Other [employer] Other 08-27-2021 11:30-0500 Systolic blood pressure 98 mm[Hg] Ellen Kuns Other [employer] Other 08-16-2021 14:23-0400 Diastolic blood pressure 68 mm[Hg] Ellen R Kuns Work Phone: [facility] [address] DO Work Phone: 08-16-2021 14:23-0400 Systolic blood pressure 90 mm[Hg] Ellen R Kuns Work Phone: [facility] [address] DO Work Phone: 08-16-2021 14:21-0400 Body height 177.8 cm Ellen R Breakers Work Phone: [facility] [employer] [address] DO Work Phone: 08-16-2021 14:21-0400 Body mass index (BMI) [Ratio] 32.14 kg/m2 Ellen R Breakers Work Phone: [facility] [employer] [address] DO Work Phone: 08-16-2021 14:21-0400 Body surface area Derived from formula 2.19 m2 Ellen crossvertises Work Phone: [facility] [employer] [address] DO Work Phone: 08-16-2021 14:21-0400 Body weight 101.61 kg Ellen R Breakers Work Phone: [facility] [employer] 250 DO Work Phone: 08-16-2021 14:21-0400 Heart rate 72 /min Ellen Eunice Breakers Work Phone: [facility] [employer] [address] DO Work Phone: Functional Status Date Assessment Result Facility 03-15-2024 Functional Status N/A [facility] 03-20-2023 Functional Status N/A [facility] 02-20-2023 Functional Status N/A [facility] 01-30-2023 Functional Status N/A [facility] Clinical Notes 06-07-2012 to 03-15-2024 Note Date & Type Note Facility 03-15-2024 Hospital Discharge instructions Patient Education 03/15/2024 13:28:21 Dietary Guidelines to Help Prevent Kidney Stones Dietary Guidelines to Help Prevent Kidney Stones Kidney stones are deposits of minerals and salts that form inside your kidneys. Your risk of developing kidney stones may be greater depending on your diet, your lifestyle, the medicines you take, and whether you have certain medical conditions. Most people can lower their risks of developing kidney stones by following these dietary guidelines. Your dietitian may give you more specific instructions depending on your overall health and the type of kidney stones you tend to develop. What are tips for following this plan? Reading food labels Choose foods with no salt added or low-salt labels. Limit your salt (sodium) intake to less than 1,500 mg a day. Choose foods with calcium for each meal and snack. Try to eat about 300 mg of calcium at each meal. Foods that contain 200 500 mg of calcium a serving include: ?8 oz (237 mL) of milk, csnlluy-lojgnffryzoz-mwpwp milk, and calcium-fortifiedfruit juice. Calcium-fortified means that calcium has been added to these drinks. ?8 oz (237 mL) of kefir, yogurt, and soy yogurt. ?4 oz (114 g) of tofu. ?1 oz (28 g) of cheese. ?1 cup (150 g) of dried figs. ?1 cup (91 g) of cooked broccoli. ?One 3 oz (85 g) can of sardines or mackerel. Most people need 1,000 1,500 mg of calcium a day. Talk to your dietitian about how much calcium is recommended for you. Shopping Buy plenty of fresh fruits and vegetables. Most people do not need to avoid fruits and vegetables, even if these foods contain nutrients that may contribute to kidney stones. When shopping for convenience foods, choose: ?Whole pieces of fruit. ?Pre-made salads with dressing on the side. ?Low-fat fruit and yogurt smoothies. Avoid buying frozen meals or prepared deli foods. These can be high in sodium. Look for foods with live cultures, such as yogurt and kefir. Choose high-fiber grains, such as whole-wheat breads, oat bran, and wheat cereals. Cooking Do not add salt to food when cooking. Place a salt shaker on the table and allow each person to add their own salt to taste. Use vegetable protein, such as beans, textured vegetable protein (TVP), or tofu, instead of meat in pasta, casseroles, and soups. Meal planning Eat less salt, if told by your dietitian. To do this: ?Avoid eating processed or pre-made food. ?Avoid eating fast food. Eat less animal protein, including cheese, meat, poultry, or fish, if told by your dietitian. To do this: ?Limit the number of times you have meat, poultry, fish, or cheese each week. Eat a diet free of meat at least 2 days a week. ?Eat only one serving each day of meat, poultry, fish, or seafood. ?When you prepare animal proteins, cut pieces into small portion sizes. For most meat and fish, one serving is about the size of the palm of your hand. Eat at least five servings of fresh fruits and vegetables each day. To do this: ?Keep fruits and vegetables on hand for snacks. ?Eat one piece of fruit or a handful of berries with breakfast. ?Have a salad and fruit at lunch. ?Have two kinds of vegetables at dinner. You may be told to limit foods that are high in a substance called oxalate. These include: ?Spinach (cooked), rhubarb, beets, sweet potatoes, and Romanian chard. ?Peanuts. ?Potato chips, s[place] fries, and baked potatoes with skin on. ?Nuts and nut products. ?Chocolate. If you regularly take a diuretic medicine, make sure to eat at least 1 or 2 servings of fruits or vegetables that are high in potassium each day. These include: ?Avocado. ?Banana. ?Dundy, prune, carrot, or tomato juice. ?Baked potato. ?Cabbage. ?Beans and split peas. Lifestyle Drink enough fluid to keep your urine pale yellow. This is the most important thing you can do. Spread your fluid intake throughout the day. If you drink alcohol: ?Limit how much you have to: ?0 1 drink a day for women who are not . ?0 2 drinks a day for men. ?Know how much alcohol is in your drink. In the [place] one drink equals one 12 oz bottle of beer (355 mL), one 5 oz glass of wine (148 mL), or one 1 oz glass of hard liquor (44 mL). Lose weight if told by your health care provider. Work with your dietitian to find an eating plan and weight loss strategies that work best for you. General information Talk to your health care provider and dietitian about taking daily supplements. Depending on your health and the cause of your kidney stones, you may be told: ?Do not take high-dose supplements of vitamin C (1,000 mg a day or more). ?To take a calcium supplement. ?To take a daily probiotic supplement. ?To take other supplements such as magnesium, fish oil, or vitamin B6. Take nhaw-oum-lyhrcnd and prescription medicines only as told by your health care provider. These include supplements. What foods should I limit? Limit your intake of the following foods, or eat them as told by your dietitian. Vegetables Spinach. Rhubarb. Beets. Canned vegetables. Pickles. Olives. Baked potatoes with skin. Grains Wheat bran. Baked goods. Salted crackers. Cereals high in sugar. Meats and other proteins Nuts. Nut butters. Large portions of meat, poultry, or fish. Salted, precooked, or cured meats, such as sausages, meat loaves, and hot dogs. Dairy Cheeses. Beverages Regular soft drinks. Regular vegetable juice. Seasonings and condiments Seasoning blends with salt. Salad dressings. Soy sauce. Ketchup. Barbecue sauce. Other foods Canned soups. Canned pasta sauce. Casseroles. Pizza. Lasagna. Frozen meals. Potato chips. Zambian fries. The items listed above may not be a complete list of foods and beverages you should limit. Contact a dietitian for more information. What foods should I avoid? Talk to your dietitian about specific foods you should avoid based on the type of kidney stones you have and your overall health. Fruits Grapefruit. The item listed above may not be a complete list of foods and beverages you should avoid. Contact a dietitian for more information. Summary Kidney stones are deposits of minerals and salts that form inside your kidneys. You can lower your risk of kidney stones by making changes to your diet. The most important thing you can do is drink enough fluid. Drink enough fluid to keep your urine pale yellow. Talk to your dietitian about how much calcium you should have each day, and eat less salt and animal protein as told by your dietitian. This information is not intended to replace advice given to you by your health care provider. Make sure you discuss any questions you have with your health care provider. Document Revised: 01/15/2023 Document Reviewed: 01/15/2023 Tour Desk Patient Education 2022 [employer] 03/15/2024 13:28:17 Antibiotic Medicine, Adult Antibiotic Medicine, Adult Antibiotic medicines are used to treat infections caused by bacteria, such as strep throat and urinary tract infection (UTI). Antibiotic medicines will not work for colds, the flu (influenza), or other illnesses caused by viruses. These medicines work by killing the bacteria that are making you sick. Antibiotics can also have serious side effects. It is important that you take antibiotic medicines safely and only when needed. When do I need to take antibiotics? You may need antibiotics for: UTI. Strep throat. Bacterial sinusitis. Meningitis. This infection affects the spinal cord and brain. Serious lung infection. You may start antibiotics while your health care provider waits for your results from any tests for possible infection. Tests may include a culture of your throat, urine, blood, or mucus. Your health care provider may change or stop your antibiotic depending on your test results. When are antibiotics not needed? You do not need antibiotics for most common illnesses. These illnesses may be caused by a virus, not by bacteria. You do not need antibiotics for: The common cold. Influenza. Sore throat. Discolored mucus. Bronchitis. Antibiotics are not always needed for all infections caused by bacteria. Many of these infections clear up without antibiotic treatment. Do not ask for or take antibiotics when they are not necessary. How long should I take my antibiotic? You must take the entire prescription. Continue to take your antibiotic for as long as told by your health care provider. Do not stop taking it even if you start to feel better. If you stop taking it too soon: You may start to feel sick again. Your infection may become harder to treat. Each course of antibiotics needs a different amount of time to work. Some antibiotic courses last only a few days. Some last about a week to 10 days. In some cases, you may need to take antibiotics for a few weeks to completely treat your infection. What if I miss a dose? Try not to miss any doses of medicine. If you miss a dose, call your health care provider or pharmacist for advice. Sometimes it is okay to take the missed dose as soon as possible. Do not take double or extra doses. What are the risks of taking antibiotics? Antibiotics can cause: Allergic reactions. Nausea. Yeast infections. Liver problems. Antibiotics can also cause an infection called Clostridioides difficile (C. difficile or C. diff), which causes severe diarrhea. This infection happens when the antibiotics kill the healthy bacteria in your intestines. This allows C. diff to grow. C. diff needs to be treated right away. Let your health care provider know if: You develop diarrhea while taking an antibiotic. You develop diarrhea after you stop taking an antibiotic. C. diff infection can start weeks after stopping the antibiotic. Taking an antibiotic also puts you at risk for getting sick in the future with bacteria that do not respond to medicine (antibiotic-resistant infection). Antibiotics can cause bacteria to change so that if the antibiotic is taken again, the medicine cannot kill the bacteria. These infections can be more serious and, in some cases, life-threatening. Do antibiotics affect control? control pills may not work while you are on antibiotics. If you are taking control pills, continue taking them as usual and use a second form of control, such as a condom, to avoid unwanted . Continue using the second form of control until your health care provider says you can stop. What else should I know about taking antibiotics? It is important for you to take antibiotics exactly as told. Make sure to: Take the correct amount of medicine at the same time each day. Ask your health care provider: ?How long to wait between doses. ?If your antibiotic should be taken with food. ?If there are any foods, drinks, or medicines that you should avoid while taking your antibiotics. ?If there are any side effects you should be aware of. Use only the antibiotics prescribed for you by your health care provider. Do not use antibiotics prescribed for someone else. Drink a large glass of water when taking your antibiotics. Drink enough fluid to keep your urine pale yellow. Ask your pharmacist for a syringe, cup, or spoon that properly measures your antibiotics. Throw away any leftover medicine. Follow these instructions at home: Take nqlx-lxv-qdlablq and prescription medicines as told by your health care provider. Return to your normal activities as told by your health care provider. Ask your health care provider what activities are safe for you. Keep all follow-up visits as told by your health care provider. This is important. Contact a health care provider if: Your symptoms get worse. You have new joint pain or muscle aches that begin after starting your antibiotic. You have side effects from your antibiotic, such as: ?Stomach pain. ?Diarrhea. ?Nausea. ?White patches in your mouth or throat. Get help right away if: You have signs of a severe allergic reaction to antibiotics. If you have any of these signs, stop taking the antibiotic right away. Signs may include: ?Hives. These are raised, itchy, red bumps on your skin. ?Skin rash. ?Trouble breathing. ?Noisy breathing (wheezing). ?Swelling anywhere on your body. ?Feeling dizzy. ?Vomiting. You have signs of liver problems, such as: ?Dark or blood-colored urine. ?Yellow color to your skin. ?Bruising or bleeding easily. You have severe diarrhea, and you have cramps in your abdomen. You have a severe headache. These symptoms may represent a serious problem that is an emergency. Do not wait to see if the symptoms will go away. Get medical help right away. Call your local emergency services (911 in the [place] Do not drive yourself to the hospital. Summary Antibiotic medicines are used to treat infections caused by bacteria. It is important that you take antibiotic medicines safely and only when needed. Your health care provider may change or stop your antibiotic depending on your results from certain tests. Finish all antibiotic medicine even when you start to feel better. This information is not intended to replace advice given to you by your health care provider. Make sure you discuss any questions you have with your health care provider. Document Revised: 11/19/2020 Document Reviewed: 07/24/2020 [employer]k Patient Education 2022 [employer] 03/15/2024 13:27:57 Kidney Stones, Ammy-mw-Ihlr Kidney Stones Kidney stones are rock-like masses that form inside of the kidneys. Kidneys are organs that make pee (urine). A kidney stone may move into other parts of the urinary tract, including: The tubes that connect the kidneys to the bladder (ureters). The bladder. The tube that carries urine out of the body (urethra). Kidney stones can cause very bad pain and can block the flow of pee. The stone usually leaves your body (passes) through your pee. You may need to have a doctor take out the stone. What are the causes? Kidney stones may be caused by: A condition in which certain glands make too much parathyroid hormone (primary hyperparathyroidism). A buildup of a type of crystals in the bladder made of a chemical called uric acid. The body makes uric acid when you eat certain foods. Narrowing (stricture) of one or both of the ureters. A kidney blockage that you were born with. Past surgery on the kidney or the ureters, such as gastric bypass surgery. What increases the risk? You are more likely to develop this condition if: You have had a kidney stone in the past. You have a family history of kidney stones. You do not drink enough water. You eat a diet that is high in protein, salt (sodium), or sugar. You are overweight or very overweight (obese). What are the signs or symptoms? Symptoms of a kidney stone may include: Pain in the side of the belly, right below the ribs (flank pain). Pain usually spreads (radiates) to the groin. Needing to pee often or right away (urgently). Pain when going pee (urinating). Blood in your pee (hematuria). Feeling like you may vomit (nauseous). Vomiting. Fever and chills. How is this treated? Treatment depends on the size, location, and makeup of the kidney stones. The stones will often pass out of the body through peeing. You may need to: Drink more fluid to help pass the stone. In some cases, you may be given fluids through an IV tube put into one of your veins at the hospital. Take medicine for pain. Make changes in your diet to help keep kidney stones from coming back. Sometimes, medical procedures are needed to remove a kidney stone. This may involve: A procedure to break up kidney stones using a beam of light (laser) or shock waves. Surgery to remove the kidney stones. Follow these instructions at home: Medicines Take glfl-uvb-gkdvhtc and prescription medicines only as told by your doctor. Ask your doctor if the medicine prescribed to you requires you to avoid driving or using heavy machinery. Eating and drinking Drink enough fluid to keep your pee pale yellow. You may be told to drink at least 8 10 glasses of water each day. This will help you pass the stone. If told by your doctor, change your diet. This may include: ?Limiting how much salt you eat. ?Eating more fruits and vegetables. ?Limiting how much meat, poultry, fish, and eggs you eat. Follow instructions from your doctor about eating or drinking restrictions. General instructions Collect pee samples as told by your doctor. You may need to collect a pee sample: ?24 hours after a stone comes out. ?8 12 weeks after a stone comes out, and every 6 12 months after that. Strain your pee every time you pee (urinate), for as long as told. Use the strainer that your doctor recommends. Do not throw out the stone. Keep it so that it can be tested by your doctor. Keep all follow-up visits as told by your doctor. This is important. You may need follow-up tests. How is this prevented? To prevent another kidney stone: Drink enough fluid to keep your pee pale yellow. This is the best way to prevent kidney stones. Eat healthy foods. Avoid certain foods as told by your doctor. You may be told to eat less protein. Stay at a healthy weight. Where to find more information National Kidney Foundation (NKF): www.kidney.org [employer] (UCF): www.urologyhealth.org Contact a doctor if: You have pain that gets worse or does not get better with medicine. Get help right away if: You have a fever or chills. You get very bad pain. You get new pain in your belly (abdomen). You pass out (faint). You cannot pee. Summary Kidney stones are rock-like masses that form inside of the kidneys. Kidney stones can cause very bad pain and can block the flow of pee. The stones will often pass out of the body through peeing. Drink enough fluid to keep your pee pale yellow. This information is not intended to replace advice given to you by your health care provider. Make sure you discuss any questions you have with your health care provider. Document Revised: 06/09/2022 Document Reviewed: 06/09/2022 [employer] Patient Education 2022 [employer] 03/15/2024 13:27:55 Benign Prostatic Hyperplasia Benign Prostatic Hyperplasia Benign prostatic hyperplasia (BPH) is an enlarged prostate gland that is caused by the normal aging process. The prostate may get bigger as a man gets older. The condition is not caused by cancer. The prostate is a walnut-sized gland that is involved in the production of semen. It is located in front of the rectum and below the bladder. The bladder stores urine. The urethra carries stored urine out of the body. An enlarged prostate can press on the urethra. This can make it harder to pass urine. The buildup of urine in the bladder can cause infection. Back pressure and infection may progress to bladder damage and kidney (renal) failure. What are the causes? This condition is part of the normal aging process. However, not all men develop problems from this condition. If the prostate enlarges away from the urethra, urine flow will not be blocked. If it enlarges toward the urethra and compresses it, there will be problems passing urine. What increases the risk? This condition is more likely to develop in men older than 50 years. What are the signs or [...] urethra. Follow these instructions at home: Take tlwe-tel-yflvnqv and prescription medicines only as told by your health care provider. Monitor your symptoms for any changes. Contact your health care provider with any changes. Avoid drinking large amounts of liquid before going to bed or out in public. Avoid or reduce how much caffeine or alcohol you drink. Give yourself time when you urinate. Keep all follow-up visits. This is important. Contact a health care provider if: You have unexplained back pain. Your symptoms do not get better with treatment. You develop side effects from the medicine you are taking. Your urine becomes very dark or has a bad smell. Your lower abdomen becomes distended and you have trouble passing urine. Get help right away if: You have a fever or chills. You suddenly cannot urinate. You feel light-headed or very dizzy, or you faint. There are large amounts of blood or clots in your urine. Your urinary problems become hard to manage. You develop moderate to severe low back or flank pain. The flank is the side of your body between the ribs and the hip. These symptoms may be an emergency. Get help right away. Call 911. Do not wait to see if the symptoms will go away. Do not drive yourself to the hospital. Summary Benign prostatic hyperplasia (BPH) is an enlarged prostate that is caused by the normal aging process. It is not caused by cancer. An enlarged prostate can press on the urethra. This can make it hard to pass urine. This condition is more likely to develop in men older than 50 years. Get help right away if you suddenly cannot urinate. This information is not intended to replace advice given to you by your health care provider. Make sure you discuss any questions you have with your health care provider. Document Revised: 04/23/2022 Document Reviewed: 04/23/2022 [employer] Patient Education 2022 [employer] [facility] 02-11-2024 History and physical note Note Date/Time February 11, 2024 8:20am [facility] [address] [place] [address] Gastroenterology H&P Signed Patient: Alisia Correa MR#: [id number] : 1960 Acct:[id number] Age/Sex: 63 / M Adm Date: 4 Loc: Room: Type: [facility] Attending Dr: Bernice Shrestha DO Copies to: DO Bernice Wolf, DO~ Date of Service: 02/11/2024 HISTORY & PHYSICAL: Patient's history with special attention to the cardiovascular, pulmonary systems and the current problem was reviewed with the patient immediately prior to the procedure. Present medications and doses reviewed in the EMR. Allergies and pertinent laboratory tests were also reviewedat this time in the EMR. The physical examination, as below, was then performed. Indication, assessment and HPI: 63-year-old male who presents for colonoscopy for change in bowel habits/diarrhea and fecal incontinence. Last colonoscopy was in 2019. Family history of GI malignancy? No PHYSICAL EXAMINATION General appearance: cooperative, NAD Skin: No jaundice, no rash or lesions Head: NCAT Eyes: Anicteric Neck: Supple Lungs: Normal respiratory effort, no use of accessory muscles Abdomen: Soft, nondistended Neuro: No focal deficits, Ox3. REVIEW OF SYSTEMS Constitutional: Denies malaise, fevers Cardiovascular: Denies chest pain, palpitations Respiratory: Denies shortness of breath, wheezing Gastrointestinal: As per HPI Genitourinary: Denies dysuria, polyuria Musculoskeletal: Denies joint swelling, joint stiffness Neurological: Denies confusion, numbness, tingling Endocrine: Denies fatigue Written informed consent obtained from the patient. Risks (including but not limited to perforation, infection, bloating, bleeding, need for emergent surgeryand loss of life), benefits and alternatives explained and questions answered. The patient verbalized understanding. Based on history patient is an appropriate candidate for the procedure. 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 Will have Kathy review and sign. Will return fax. 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 Will have Kathy review and sign. Will return fax. [facility]03-26-2024 Miscellaneous Notes* Telephone Encounter - Rachel Mixon CMA - 01/12/2024 9:[address] request to evaluate and treat from [facility] dated 01/08/24. Will have Mollyreview and sign. Will return fax. documented in this encounterUniversity [facility]als [facility]03-26-2024 Telephone encounter Note* Telephone Encounter - Rachel Mixon CMA - 01/12/2024 9:[address] request to evaluate and treat from [facility] dated 01/08/24. Will have Mollyreview and sign. Will return fax. [facility]03-22-2024 Miscellaneous Notes* Telephone Encounter - Rachel Mixon CMA - 01/08/2024 8:17 AM EDT Received PT Initial Eval from [facility] dated 01/06/24 . Will have Kathy review and sign. Will return fax. documented in this encounterUniversity [facility]als [facility]03-22-2024 Telephone encounter Note* Telephone Encounter - Rachel Mixon CMA - 01/08/2024 8:17 AM EDT Received PT Initial Eval from [facility] dated 01/06/24 . Will have Kathy review and sign. Will return fax. [facility]02-23-2024 Miscellaneous Notes* Telephone Encounter - Fidelia Lagunas - 12/11/2023 8:55 AM EST Refill Request Medication:midodrine (PROAMATINE) 5 mg tablet Strength: Current dose & Frequency: 30 day or 90 day supply: Pharmacy:[facility] [address] Request was made by:Patients daughter. Caller states patient Is now out of this medication and the pharmacy needs a new script that reflects the changes that was made at last appointment. Patient now takes a total of 9 pills with the change and that's why patient run our early. Please advise * Telephone Encounter - Julianna Barnes - 12/11/2023 8:55 AM EST Refill request : midodrine (PROAMATINE) 5 mg tablet Last filled : 09/02/2023 Last OV : 11/16/2023 Next OV : No follow up mentioned in last ov note. Reviewed by SHEET METAL SHOP SUPERVISOR Pend for signature. documented in this encounterVerm[facility] HospitalBab[facility]-23-[facility]24 Telephone encounter Note* Telephone Encounter - Fidelia Lagunas - 12/11/2023 8:55 AM EST Refill Request Medication:midodrine (PROAMATINE) 5 mg tablet Strength: Current dose & Frequency: 30 day or 90 day supply: Pharmacy:[address] Request was made by:Patients daughter. Caller states patient Is now out of this medication and the pharmacy needs a new script that reflects the changes that was made at last appointment. Patient now takes a total of 9 pills with the change and that's why patient run our early. Please advise [facility] Telephone encounter Note* Telephone Encounter - Julianna Barnes - 12/11/2023 8:55 AM EST Refill request : midodrine (PROAMATINE) 5 mg tablet Last filled : 09/02/2023 Last OV : 11/16/2023 Next OV : No follow up mentioned in last ov note. Reviewed by SHEET METAL SHOP SUPERVISOR Pend for signature. [employer]01-30-2024 Evaluation note* Encounter Date Diagnosis Assessment Notes Treatment Notes Treatment Clinical Notes Oct, Arthritis (ICD-10 - M19.90) Oct, Chronic pain syndrome (ICD-10 - G89.4) [facility] Other 01-29-2024 History of Present illness Narrative* Loree Linad, DOWEL 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-HAND CEMENTER - 11/16/2023 1:00 PM EST Images from the original note were not included. [address] [facility] [id number] Patient: Alisia Correa Sr. Date of : 1960 Encounter Date: 11/16/2023 History of Present Illness: The patient is a 63 y.o. male, an established patient, and is here for No chief complaint on file. . Mr. Correa comes in for follow up for Parkinson's disease and is accompanied by his father He was seen by Dr. Bowden as a new patient on 08/11/22 Plan: - Add miralax for constipation, use as directed - Change midodrine dosing for orthostatic hypotension, use as directed - Continue current Sinemet regimen - Follow up in 6 weeks to determine benefit/add further dose adjustments He was admitted to [facility]: 11/20/22 to 12/06/22 Mr. Correa, You were admitted to the hospital because You had low blood pressures. You were given fluid in your blood pressure improved But shortly after you required to be on oxygen and you tested positive for COVID-19. Your oxygen levels were dropping to a level that was unsafe and your required in tubation, meaning a tube was placed on your throat and you were placed on a ventilator to help you breathe.You were treated for Covid pneumonia but you were also found to have a urinary tract infection in the meantime, which was treated with antibiotics. While you were in the intensive care unit there was a lot of difficulty with maintaining your blood pressure even after your infections were treated. Low blood pressures and inability to maintain a steady blood pressure is a symptom of late stage parkinsonism. Due to how often your blood pressures became low our medical intensive care unit consulted our palliative medicine team just to discuss your goals of care moving forward given that your parkinsonism has advanced to cause you to have low blood pressure, urine incontinence, and fecal incontinence. You voice to a palliative medicine team that you no longer wanted aggressive life-saving measures and you wanted to be do not resuscitate cardiac arrest and do not intubate. Your blood pressures were stabilized to a low end of normal and you were sent to the regular nursing floor. While on the regular nursing floor, once more your blood pressure became very low to the point that if we did not medically intervene your Blood pressure would not be able to sustain blood to your vital organs. At this time we gave you fluids and you decided that if your blood pressure persisted to be low that you would not want to go to the intensive care unit. You spoke with your family and you let them know that you decided to go to comfort care and you did not want to be in the intensive care unit anymore. At this time you change your code status to comfort care and we continue to work with our case management team to Send you home with a hospice facility that would support you moving further. Your family was very supportive and your decision to change to a hospice status and you voiced your goals that you wanted to be home and you wanted to be with your family. We will be discharging you home with hospice care. He has a history of back problems and states he had a crushing injury back in 1978. Parkinson's disease checklist(11/16/23): Onset: 2019 tremors Off time and fluctuations: Denies. Dyskinesias: Denies. Gait: Uses walker, Freezing: None. Falls:yes falls about once a week, no injuries. Uses walker. Tremors: Improved following medication adjustment Speech: No worsening of speech. Some softness of voice Swallowing: some difficulty with foods at times, No choking hx Barretts esophagus. Nausea after eating ADLs: Intact regarding toileting, bathing, feeding, dressing, grooming, ambulation, medication. IADLs: Intact regarding using telephone, shopping, food preparation, housekeeping, laundry, finances, transportation. Constipation: None. Sleep: No sleep fragmentation, vivid dreams or dream enacting behavior. Memory: Describes memory as not worse than other people of similar age. Depression/Anxiety: Denies. Hallucinations: Sees shadows, bodies but no faces but he states they are familiar people who are . Also felt a breeze of air when shadows go by, hallucinations last about 10-20 sec. On midodrine 5 mg 1 tab 2 times daily Lightheadedness/syncope: yes. He had 1 episode of syncpe a few months back due to low blood pressures and is followed by cardiology Impulsive behavior: Denies impulsive behaviors regarding gambling, shopping, eating and sexual behaviors. 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 Has been on tolterodine ER4 mg daily without improvement. Neuropathy with pain and tingling in hands and legs History of migraines. Asks for refill of imirtrex which he uses about once a month to treat headache with good response. Allergies: Celecoxib, Erythromycin base, Moxifloxacin, Clonazepam, Levofloxacin, Erythromycin, and Pimavanserin Past Medical, Family, Surgical, and Social History Update: The following portions of the patient's history were reviewed and updated as appropriate: allergies, current medications, past family history, past medical history, past social history, past surgicalhistory and problem list. Past Medical History: Diagnosis Date Diabetes mellitus ([facility]) Diabetes mellitus type 2, controlled ([facility]) HL (hearing loss) Hypertension Kidney stones Migraine Parkinson's disease Spinal stenosis History reviewed. No pertinent family history. Past Surgical History: Procedure Laterality Date BACK SURGERY cervical. plates on 5,6, 7. and lumbar surgery. 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 90 tablet 1 acetaminophen (TYLENOL) 325 mg tablet Take 2 tablets (650 mg total) by mouth every 6 (six) hours asneeded for pain. acetaminophen-caffeine (EXCEDRIN TENSION HEADACHE) 500-65 mg tablet Take 2 tablets by mouth every 6(six) hours as needed (Migraine). 90 tablet 0 atorvastatin (LIPITOR) 10 mg tablet Take 1 tablet (10 mg total) by mouth daily. 30 tablet 1 betamethasone, augmented, (DIPROLENE) 0.05 % cream Apply 1 application topically daily. 30 g 0 carbidopa-levodopa (SINEMET CR) 25-100 mg per CR tablet TAKE 1 TABLET BY MOUTH AT 2AM, 2 TABLETS AT6AM AND 10AM, 1 TABLET AT 2PM, 6PM, AND 10PM. TAKE WITH SINEMET IR. 240 tablet 11 docusate sodium (COLACE) 100 mg capsule Take 1 capsule (100 mg total) by mouth daily as needed. ezetimibe (ZETIA) 10 mg tablet Take 1 tablet (10 mg total) by mouth daily. 30 tablet 0 fludrocortisone (FLORINEF) 0.1 mg tablet 2 tabs daily as directed 180 tablet 3 midodrine (PROAMATINE) 5 mg tablet Take 3 tabs with 1st dose of C/L, 2 tabs with the 2nd dose of C/L and 1 tab with 3rd dose of C/L 540 tablet 3 montelukast (SINGULAIR) 10 mg tablet Take 1 tablet (10 mg total) by mouth in the morning. multivitamin capsule Take 1 capsule by mouth in the morning. ondansetron (ZOFRAN) 4 mg tablet Take 2 tablets (8 mg total) by mouth every 6 (six) hours as neededfor nausea or vomiting. 20 tablet 0 SUMAtriptan (IMITREX) 50 mg tablet Take 1 tablet (50 mg total) by mouth once as needed for migrainefor up to 15 doses. May repeat in 2 hours if unresolved. Do not exceed 200 mg in 24 hours. 15 tablet 0 topiramate (TOPAMAX) 100 mg tablet Take 1 tablet (100 mg total) by mouth 2 (two) times a day. 60 tablet 1 carbidopa-levodopa (SINEMET) 25-100 mg per tablet TAKE 2 TABLETS BY MOUTH AT 6AM AND 10AM, 1 TAB AT2PM AND 6PM. AVOID PROTEIN 1 HOUR BEFORE OR AFTER EACH DOSE. TAKE ALONG WITH SINEMET CR. 180 traMADoL (ULTRAM) 50 mg tablet Take 1 tablet (50 mg total) by mouth every 6 (six) hours as needed for pain for up to 120 days. 120 tablet 3 venlafaxine XR (EFFEXOR-XR) 150 mg 24 hr capsule Take 1 capsule (150 mg total) by mouth in the morning. 90 capsule 3 No current facility-administered medications for this visit. (All medications reviewed and updated by provider since last office visit or hospitalization) Tobacco History: Social History Tobacco Use Smoking Status Every Day Types: Cigarettes Smokeless Tobacco Never Tobacco Comments 8 cigs per day (If patient a smoker, smoking cessation counseling offered) Social History: Social History Substance and Sexual Activity Alcohol Use Not Currently Parkinson's and Movement Disorder Review of Systems: HAND DOMINANCE: right ACTIVITIES OF DAILY LIVING: Needs assistance with: Bathing:yes Dressing:yes Eating:no Going to Bathroom: no Uses assistive devices: Cane: no Walker: yes Wheelchair: yes Do you drive?: no Any accidents or tickets: no Lives: with spouse/family CONSTITUTIONAL Fatigue: yes Weight Loss: no Weight Gain: no Fever: no Chills: no EYES Double Vision (diplopia): no Blurred Vision: yes EARS Ringing in ears (tinnitus): yes Hearing loss: yes Wears hearing aid: no NOSE/THROAT Nasal discharge: no Hoarseness: no Soft voice (hypophonia): no Drooling: yes Loss of sense of smell: no RESPIRATORY Shortness of breath: no Cough: no Cardiovascular Chest Pain: yes Fluttering (palpitations): yes Swelling in legs (edema): yes GASTROINTESTINAL Loss of appetite: yes Increase in appetite: no Difficulty swallowing (dysphagia): yes Choking on food: yes Choking or coughing with liquids: no Abdominal pain: no Nausea: yes Vomiting: yes Diarrhea: yes Constipation:yes Do you use anything to treat constipation: Yes Does it work: Yes GENITOURINARY Increased frequency of urination: no Painful urination (dysuria): no Frequent urinating at night (nocturia): no Unable to hold urine (incontinence): yes Erectile Dysfunction: yes HEMATOLOGIC Bruises easily: no MUSCULOSKELETAL Neck Pain: yes Back Pain: yes Joint Pain: yes Muscle Pain: yes SKIN Rash: no Skin Lesions or sores: yes NEUROLOGIC Headache: yes Lightheadedness: yes Fainting (syncope): yes Dizziness: yes Weakness: yes Tingling (paresthesia): yes Tremor (shaking): yes Involuntary wiggly movements (dyskinesia): no Involuntary muscle jerks: no Falls:yes How many falls in past 3 months: 2 PSYCHIATRY Difficulty sleeping: yes Excessive sleepiness:yes Talking/moving in sleep: yes Feeling anxious:yes Feeling depressed:yes Mood swings:yes Confusion: yes Memory loss:no Hallucinations (seeing or hearing things that are not there):yes Impulsive behaviors: Gambling:no Shopping:no Computer games:no Increased interest in sex: no Hobbies: no ENDOCRINE Intolerant of cold: no Excessive sweating: no ALLERGIC/ IMMUNOLOGIC Recent infections: yes Bladder infection:yes Respiratory infection: no Physical Exam: Vitals: Vitals: 11/16/23 1317 BP Postition: Sitting BP Site: Left Arm BP CUFF SIZE: L (13-17 inches) Pulse: 58 BP: 144/82 Neurological Physical Exam: Physical Exam: Mental Status: Orientation: Oriented. Level of consciousness: alert. Knowledge: good. Attention span is normal. Concentration is normal. Speech: Voice is hypophonic. Cranial Nerves: CN II: Visual mensah full to confrontation. CN III, IV, : CN III: EOM full. CN V: Facial sensation intact to pin. CN VII: Facial expression fully symmetric. CN VIII: CN VIII normal. CN XII: CN XII normal. Motor: Muscle Tone: Bilateral rigidity with activation, worse on the right. Muscle Strength: Normal strength left UE, slightly decreased in right UE. Bilateral LE weakness, 2/5. Gait/Coord/DTR: Gait: Patient uses wheelchair, gait not assessed. Coordination: Intention tremor bilaterally with finger to nose testing. Tremor: Slight postural tremor on the right, bilateral intention tremor. Reflexes: Right brachioradialis 2+ Left brachioradialis 2+ Right biceps 2+ Left biceps 2+ Right patellar 1+ Left patellar 1+ Assessment and Plan: Diagnoses and all orders for this visit: Parkinson's disease without dyskinesia or fluctuating manifestations - Ambulatory referral to Speech Therapy (Non[facility]); Future - Ambulatory referral to Physical Therapy (Non[facility]); Future Spinal stenosis of lumbar region with neurogenic claudication - traMADoL (ULTRAM) 50 mg tablet; Take 1 tablet (50 mg total) by mouth every 6 (six) hours as needed for pain for up to 120 days. Anxiety - venlafaxine XR (EFFEXOR-XR) 150 mg 24 hr capsule; Take 1 capsule (150 mg total) by mouth in the morning. 50 minutes were spent reviewing records, prior visit notes and any test, and face to face with the patient and spouse/caregiver/family member with time spent on planning and coordinating care on Parkinson's disease management, including disease progression and prognosis, medications and potential adverse effects, safety related to swallowing and falls, and exercise. Patient instructions: Patient Instructions Eliminate 2 am dose of carbidopa/levodopa, this is to see if you can get by without waking for the dose. If after 1 week you feel worse you can go back to the dosing at 2 am Change 6 am dose of carbidopa/levodopa 25/100) Yellow tablet, to 3 tabs and continue carbidopa/levodopa ER at 2 tabs Add carbidopa/levodopa ER 1 tab and regular carbidopa/levodopa at 10 pm. (This will take the place of the 2 am dose. ) Change dose of midodrine to 3 tabs ( 15 mg at 8 am, and 2 tabs 10 mg at 12 pm and 2 tabs at 6 pm, Increase the dose of venlafaxine ER to 150 mg daily. Thi is for mood, anxiety and depression Physical therapy for gait, balance and muscle strengthening Speech therapy for voice and swallowing. Take tramadol 1 tab as needed every 6 hours for pain in back or feet. Please consider seeing pain management again regarding back pain. Sometimes back and spinal pain can cause some issues with numbness/tingling. Follow-up: REGAN MORALES APRN-CNP 12/07/23 0817 documented in this encounterUniversity [facility]01-29-[facility]24 Instructions* Patient Instructions* REGAN Morales - 11/16/2023 1:00 PM EST Eliminate 2 am dose of carbidopa/levodopa, this is to see if you can get by without waking for the dose. If after 1 week you feel worse you can go back to the dosing at 2 am Change 6 am dose of carbidopa/levodopa 25/100) Yellow tablet, to 3 tabs and continue carbidopa/levodopa ER at 2 tabs Add carbidopa/levodopa ER 1 tab and regular carbidopa/levodopa at 10 pm. (This will take the place of the 2 am dose. ) Change dose of midodrine to 3 tabs ( 15 mg at 8 am, and 2 tabs 10 mg at 12 pm and 2 tabs at 6 pm, Increase the dose of venlafaxine ER to 150 mg daily. Thi is for mood, anxiety and depression Physical therapy for gait, balance and muscle strengthening Speech therapy for voice and swallowing. Take tramadol 1 tab as needed every 6 hours for pain in back or feet. Please consider seeing pain management again regarding back pain. Sometimes back and spinal pain can cause some issues with numbness/tingling. documented in this encounterKettering Health Washington [email or web address].com [facility] [id number] Evaluation note* Encounter Date Diagnosis Assessment Notes Treatment Notes Treatment Clinical Notes Oct, Acute UTI (ICD-10 - N39.0) Patient was seen in ER yesterday for his suprapubic cath not draining well. UA obtained in ER was positive for infection and he was started on Keflex. Culture is pending. Suprapubic cath patent and draining well. No indication of sepsis. CBC done through the ER yesterday was negative and the Blood culture obtained on 10/28/23 was negative. I do want him to take and finish antibiotics as ordered. Oct, Arthritis (ICD-10 - M19.90) Patient does use the diclofenac for the arthritis pain. His renal function is stable. No indication of any GI bleed. Blood count is stable. I will refill Oct, Parkinson disease (ICD-10 - G20) Patient is under the care of neurologist for the Parkinsons disease. He is in a motorized chair today that he uses for mobility. Patient is tolerant of the parkinsons medications ordered. I do recommend he follow the plan of care as outlined by neurologist. Oct, Needs flu shot (ICD-10 - Z23) High dose flu vaccine provided Oct, Neurogenic bladder (ICD-10 - N31.9) Patient has a neurogenic bladder and as a result of this he does have a suprapubic cath in place. He was see in the ER yesterday as catheter was not draining well. This was changed out in the ER and now is draining well. UA did show infection and was started on Keflex. He is following with urologist and I strongly recommend he follow the plan of care as outlined by urologist. Oct, Change in stool (ICD-10 - R19.5) Patient reports that his stools are clear in color and resemble lube . This has been going on now for several months. Stool cultures obtained in August negative along with the CT abdomen/pelvis that was also done. Gallbladder was negative for stones. I do recommend increasing fiber in diet for example metamucil. I did an extensive review of his medications and I do not see anything evident that would cause this change. At this point, due to his significant medical history, I highly recommend a GI consultation. He is in agreement and referral has been placed. Oct, Nausea (ICD-10 - R11.0) Patient does have episodic nausea and uses the Zofran as needed. I will refill this for him today. He does report spitting up bile at times. I recommend a OTC PPI to assist with the reflux. I am also referring him out to GI for consult. He may need upper and lower endoscopy. I will defer this to gastro for their opinion Oct, Impaired glucose metabolism (ICD-10 - R73.09) In house A1C is stable. No indication of DM at this time. This will be monitored [facility] Other 01-22-2024 Evaluation note* Encounter Date Diagnosis Assessment Notes Treatment Notes Treatment Clinical Notes Oct, Arthritis (ICD-10 - M19.90) [facility] Other 01-22-2024 Miscellaneous Notes* Telephone Encounter - Julianna Barnes - 11/09/2023 10:42 AM EST Refill request: Sinemet IR 25-100 mg tablet and Sinemet ER 25- 100 mg tablet Interior Design Principal phoned patient and patient has refills remaining on both medications at pharmacy. Patient voiced understanding. documented in this encounterVerm[facility] HospitalBabble01-22-2024 Telephone encounter Note* Telephone Encounter - Julianna Barnes - 11/09/2023 10:42 AM EST Refill request: Sinemet IR 25-100 mg tablet and Sinemet ER 25- 100 mg tablet [employer] phoned patient and patient has refills remaining on both medications at pharmacy. Patient voiced understanding. [facility] HospitalDiplopia12-18-[facility] Evaluation note* Encounter Date Diagnosis Assessment Notes Treatment Notes Treatment Clinical Notes Sep, Arthritis (ICD-10 - M19.90) [facility] Other [id number] Evaluation note* Encounter Date Diagnosis Assessment Notes Treatment Notes Treatment Clinical Notes Aug, Anxiety (ICD-10 - F41.9) Aug, Neuropathy (ICD-10 - G62.9) [facility] Other 11-28-2023 Evaluation note* Encounter Date Diagnosis Assessment Notes Treatment Notes Treatment Clinical Notes Aug, Diabetic nephropathy (ICD-10 - E11.21) [facility] Other 11-15-2023 Evaluation note* Encounter Date Diagnosis [...] medrol should help with this as well. [facility] Other 11-07-2023 Evaluation note* Encounter Date Diagnosis Assessment Notes Treatment Notes Treatment Clinical Notes Aug, UTI (urinary tract infection) (ICD-10 - N39.0) Aug, Diarrhea (ICD-10 - R19.7) [facility] Other 09-15-2023 Evaluation note* Encounter Date Diagnosis Assessment Notes Treatment Notes Treatment Clinical Notes Jun, Arthritis (ICD-10 - M19.90) [facility] Other 08-08-2023 Evaluation note* Encounter Date Diagnosis Assessment Notes Treatment Notes Treatment Clinical Notes May, Parkinson disease (ICD-10 - G20) May, Constipation (ICD-10 - K59.00) [facility] Other 08-01-2023 Evaluation note* Encounter Date Diagnosis [...] narcotic induced constipation and he verbalized understanding. [facility] Other 07-10-2023 Evaluation note* Encounter Date Diagnosis Assessment Notes Treatment Notes Treatment Clinical Notes Apr, Hypotestosteronism (ICD-10 - E34.9) [facility] Other 06-02-2023 Hospital Discharge instructions Patient Education [...] and water are not available, use hand manager retirement. 3.Draw up sterile water into a syringe [...] and water are not available, use hand manager retirement. 2.Disconnect the bag from the catheter and [...] of the following methods: According to the financial analysis manager's instructions. As told by your health care provider. 7.Let the bag dry completely. Put it in a clean plastic bag before storing it. General tips Always wash your hands before and after caring for your catheter and collection bag. Use a mild, fragrance-free soap. If soap and water are not available, use hand manager retirement. Clean the outside of the catheter with [...] provider. Document Revised: 12/13/2020 Document Reviewed: 11/09/2019 [employer] Patient Education 2022 [employer] Follow Up Care 02/20/2023 10:24:17 With:WALTER YBARRA, Fidel Hinkle, URL Address: [facility] [address] , [place] [address]- When: Unknown [facility] 05-05-2023 Hospital Discharge instructions Patient Education 02/20/2023 [...] Follow these instructions at home: Medicines Take nbkq-vzr-twckzrq and prescription medicines only as told by [...] provider. Document Revised: 06/26/2021 Document Reviewed: 06/26/2021 [employer] Patient Education 2022 [employer] Follow Up Care 01/16/2023 11:27:11 With:WALTER YBARRA, Fidel Hinkle, URL Address: [address] [place], [place] [id number]- When: Unknown [facility] 04-14-2023 Hospital Discharge instructions Patient Education 01/30/2023 [...] urethra. Follow these instructions at home: Take cjpz-eys-nlkatvt and prescription medicines only as told by [...] 10/05/2006 Document Revised: 08/30/2019 Document Reviewed: 11/09/2017 [employer] Patient Education 2020 [employer] 01/30/2023 07:57:19 Indwelling Urinary Catheter Care, Adult, Oujw-cn-Utih Indwelling Urinary Catheter Care, Adult An indwelling [...] not have soap and water, use hand manager retirement. Always make sure there are no twists [...] 01/30/2014 Document Revised: 01/27/2020 Document Reviewed: 05/21/2018 [employer] Patient Education 2020 [employer] 01/30/2023 07:56:45 Benign Prostatic Hyperplasia Benign Prostatic [...] urethra. Follow these instructions at home: Take yvyh-nam-opsimbl and prescription medicines only as told by [...] 10/05/2006 Document Revised: 08/30/2019 Document Reviewed: 11/09/2017 [employer] Patient Education 2020 [employer] Follow Up Care 01/27/2023 14:28:53 With:WALTER YBARRA, Fidel Hinkle, URL Address: [facility] [address] , [place] [id number]- [phone] When:Within 3 Week(s) Comments:3 weeks for SP tube change [facility] Lori 04-06-2023 NoteOP Note OPERATION DATE: 01/22/2023 PREOPERATIVE [...] the flexible scope and then passed a 26-Zambian resectoscope sheath into the bladder, and then I used the [employer] evacuator and was able to extract all [...] of the incision. I then grasped a 24-Zambian two way Carrington catheter in the jaws [...] bag. He was then transferred to a rasbury bed and wheeled to recovery room after sterile dressing was placed over the incision. He will be discharged to home later today. He will continue his daily Augmentin. Follow up will be in four weeks to change his SP tube in the office.[facility] [id number] NoteEXAMINATION: XR CHEST 2 V, 01/20/2023 11:23 [...] Electronically authenticated by: SHARRON BENITEZ Date: 2023-01-20 12:49[facility] [id number] Evaluation note* Encounter Date Diagnosis Assessment Notes Treatment Notes Treatment Clinical Notes Dec, Neuropathy (ICD-10 - G62.9) [facility] Other 03-08-2023 NoteHNO ID: [id number] Author: Say Reyes APRN.HAND CEMENTER Service: ? Author Type: Nurse Practitioner Type: Progress Notes Filed: 12/24/2022 5:59 PM Note Text: The patient did not show up for this appointment.[facility] [id number] History of Present illness Narrative* Say Reyes APRN.HAND CEMENTER - 12/24/2022 11:30 AM EST The patient did not show up for this appointment. documented in this encounterCincinnati [facility]02-18-2023 NoteDay[facility]02-[facility]-2023 NoteDay[facility]02-18-2023 Miscellaneous Notes * Telephone Encounter - Zelda Saenz RN - 12/06/2022 1:15 PM EST [facility] [place] pharmacist, Macrina, requests to clarify pt.'s proamatine dose as she received several prescriptions strengths for it for pt today per Dr Breann Hanks and also requests to inform Dr. Hakns there is no dilaudid in stock for pt, but will obtain Dilaudid in stock on Thursday. I forwarded pharmacistscall to Dr. Breann Hanks for further instruction and clarification of pt.'s prescriptions. Dr. Hanks states pt is still hospitalized, but will be d/c'ed from [facility] later today. documented in this encounterCincinnati Va [facility] Center02-17-2023 NoteDay[facility]02-16-2023 NoteDay[facility]02-16-2023 NoteDay[facility]02-15-2023 NoteDay[facility]02-15-2023 Note [facility]-2023 [facility]02-14-2023 [facility]02-13-2023 [facility] 12-01-2022 NoteDay[facility]02-13-2023 NoteDay[facility]02-12-2023 NoteDay[facility]02-11-2023 NoteDay[facility]02-11-2023 NoteDay[facility]02-10-2023 Note [facility]02-[facility]-2023 [facility]Day[facility]02-08-2023 NoteHNO ID: [id number] Author: Antonia Villa RN Service: ? Author Type: Registered Nurse Type: Nursing Progress Note Filed: 11/26/2022 10:03 AM Note Text: Transfer Note: Patient transferred in stable condition. Actions taken: Report given/called to G61 RN.[facility]02-08-2023 [facility]Day[facility]02-08-2023 [facility]Day[facility]02-07-2023 [facility]02-06-2023 NoteDay[facility]02-05-2023 Note [facility]02-04-2023 [facility]Day[facility]02-03-2023 [facility]Day[facility]02-03-2023 [facility] 11-20-2022 NoteDay[facility]02-02-2023 [facility]Day[facility]01-30-2023 Evaluation note* Encounter Date Diagnosis Assessment Notes Treatment Notes Treatment Clinical Notes Oct, Orthostatic hypotension (ICD-10 - I95.1) [facility] Other 01-24-2023 Evaluation note* Encounter Date Diagnosis [...] He is symptomatic with dizziness and fatigue. [facility] was contacted and will attempt to schedule him an appointment DIMITRY Oct, Central spinal stenosis (ICD-10 - M48.00) Moderate central stenosis is noted on his recent ct scans and mylegrams, which are more than likely causing his neurological issues / loss of bowel/bladder. He is scheduled to see neurosurgeon Dr. Reddy in the next few weeks which had [...] sympoms. 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 Teran and they have advised that they will call both us and the patient back with an appt and recommendations due to his significant hypotention. [facility] Other 11-15-2022 Evaluation note* Encounter Date Diagnosis [...] Aug, Needs flu shot (ICD-10 - Z23) [facility] Other 11-11-2022 Evaluation note* Encounter Date Diagnosis Assessment Notes Treatment Notes Treatment Clinical Notes Aug, Benign prostatic hyperplasia with lower urinary tract symptoms, symptom details unspecified (ICD-10 - N40.1) [facility] Other 11-10-2022 Evaluation note* Encounter Date Diagnosis Assessment Notes Treatment Notes Treatment Clinical Notes Aug, Benign prostatic hyperplasia with lower urinary tract symptoms, symptom details unspecified (ICD-10 - N40.1) [facility] Other 08-30-2022 Evaluation note* Encounter Date Diagnosis Assessment Notes Treatment Notes Treatment Clinical Notes May, Neuropathy (ICD-10 - G62.9) [facility] Other 08-03-2022 Evaluation note* Encounter Date Diagnosis [...] - N40.1) May, Parkinsonism (ICD-10 - G20) [facility] Other 06-07-2022 Evaluation note* Encounter Date Diagnosis Assessment Notes Treatment Notes Treatment Clinical Notes Mar, Hypotension (ICD-10 - I95.9) [facility] Other 05-03-2022 History of Present illness Narrative* Nevaeh Oviedo RN - 02/18/2022 12:15 PM EDT Discharged with [facility] per cart to senior care with AVS and scripts. * Nevaeh Oviedo RN - 02/18/2022 11:00 AM EDT Report called to [facility]. All Questions answered. Phone number given if any further questions arise. * Evelina Parra MD - 02/18/2022 10:09 AM EDT INTERNAL MEDICINE Progress Note 02/18/2022 10:09 AM Subjective: Admit Date: 02/07/2022 PCP: ELLEN CRABTREE, Interval History: No new c/o Tremors stable [...] Date: 02/07/2022 PCP: ELLEN CRABTREE, Interval History: Doing well Tremors, on sinemet [...] as above. Evelina Parra MD, MD * Carla KilgoreHOLLY - 02/17/2022 10:02 AM EDT [facility] ORTHOPEDICS 7K Occupational Therapy Daily Note Time: Time In: 923 Time Out: 1002 Timed Code Treatment Minutes: 38 Minutes Minutes: 38 Date: 02/17/2022 Patient Name: Alisia Correa, Gender: male Room: [facility]012- : 1960 (61 y.o.) Referring Practitioner: Maki [...] position/activity restrictions: hx PD; monitor BP SUBJECTIVE: ALFONSO hartayed OT session. Pt. In bed supine agreeable to participate. Pt. With low BP, RN okayed OT treatment. Pt. agitated with catheter positioning RN notified and addressed. PAIN: 10: low back Vitals: Nurse checked vitals prior [...] (1.778 m) Wt 240lb (108.9 kg) SpO2 93% BMI 34.44 kg/m [...] 02/07/2022 PCP: ELLEN CRABTREE, DO Interval History: Hypoxemia, on home cpap [...] with consulting physicians SHRAVAN Pressley * Ute Wall, PT - 02/16/2022 10:39 AM EDT [facility] INPATIENT PHYSICAL THERAPY DAILY NOTE [facility] ORTHOPEDICS 7K - 7K-12/012-A Time [...] Ambulation Assistance: Independent Transfer Assistance: Independent Active Travel Registered Nurse Oncology: Yes Additional Comments: pt states d/t PD, he requires assistance with transfers and ambulation; 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 PAIN: 04/27: low back Vitals: Blood Pressure: supine 111/61, [...] with LAQ noted Functional Outcome Measures: Completed AM-[facility] Inpatient Mobility without Stair Climbing Raw Score : 12 AM-[facility] Inpatient without Stair Climbing T-Scale Score : [...] to navigate home distances. Additional Goals?: No Fpc Goals Time Frame for assisted goals : N/A due to short ELOS Following session, patient left in safe position with all fall risk precautions in place. * Lulu Chan, OT - 02/15/2022 2:57 PM EDT [facility] ORTHOPEDICS 7K Occupational Therapy Daily Note Time: Time In: 1452 Time Out: 1520 Timed Code Treatment Minutes: 28 Minutes Minutes: 28 Date: 02/15/2022 Patient Name: Alisia Correa, Gender: male Room: [facility]012-A : 1960 (61 y.o.) Referring Practitioner: Maki [...] 02/07/2022 PCP: ELLEN CRABTREE, DO Interval History: No new c/o today [...] Vaughan PT - 02/14/2022 3:02 PM EDT [facility] INPATIENT PHYSICAL THERAPY DAILY NOTE [facility] ORTHOPEDICS 7K - 7K-12/012-A Time [...] Ambulation Assistance: Independent Transfer Assistance: Independent Active Travel Registered Nurse Oncology: Yes Additional Comments: pt states d/t PD, he requires assistance with transfers and ambulation; pt hadHH PT MUSIC AUTOGRAPHER Restrictions/Precautions: Restrictions/Precautions: General Precautions,Fall Risk Required Braces or Orthoses Spinal: Lumbar Corset Other: Abdominal Binder Position Activity Restriction Spinal Precautions: No Bending,No Lifting,No Twisting Other position/activity restrictions: hx PD; monitor BP SUBJECTIVE: RN approved session. Pt pleasant and agreeable to therapy PAIN: 03/28: back Vitals: Vitals not assessed [...] and hip abd/add Functional Outcome Measures: Completed AM-[facility] Inpatient Mobility without Stair Climbing Raw Score : 13 AM-[facility] Inpatient without Stair Climbing T-Scale Score [...] to navigate home distances. Additional Goals?: No Assignment Manager Goals Time Frame for assisted goals : N/A due to short ELOS Following session, patient left in safe position with all fall risk precautions in place. Josue Vaughan PT, DPT * Evelina Parra MD - 02/14/2022 12:32 PM EDT INTERNAL MEDICINE Progress Note 02/14/2022 12:32 PM Subjective: Admit Date: 02/07/2022 PCP: ELLEN CRABTREE DO Interval History: Low bp on midodrine, [...] -cont midodrine Evelina Parra MD, MD * Margoth PeaceHOLLY - 02/14/2022 10:57 AM EDT [facility] OCCUPATIONAL THERAPY MISSED TREATMENT NOTE [facility] ORTHOPEDICS 7K 7K-12/012-A Date: 02/14/2022 Patient Name: Alisia Correa CSN: [id number] : 1960 (61 y.o.) Gender: male Referring [...] BID insulin lispro 0-6 Units SubCUTAneous TID insulin lispro 0-3 Units SubCUTAneous Nightly tolterodine [...] HOLLY Morejon - 02/13/2022 12:33 PM EDT [facility] ORTHOPEDICS 7K Occupational Therapy Daily Note Time: Time In: 1109 Time Out: 1135 Timed Code Treatment Minutes: 26 Minutes Minutes: 26 Date: 02/13/2022 Patient Name: Alisia Correa, Gender: male Room: [facility]/012- : 1960 (61 y.o.) Referring Practitioner: Maki [...] In chair and agreeable to participate PAIN: 7/10: lower back Vitals: Vitals not assessed per [...] fall risk precautions in place. * Josue Vaughan PT - 02/13/2022 11:02 AM EDT [facility] INPATIENT PHYSICAL THERAPY DA[facility]K - 7K-12/012-A Time In: 903 [...] Ambulation Assistance: Independent Transfer Assistance: Independent Active Travel Registered Nurse Oncology: Yes Additional Comments: pt states d/t PD, he requires assistance with transfers and ambulation; pt hadHH PT MUSIC AUTOGRAPHER Restrictions/Precautions: Restrictions/Precautions: General Precautions,Fall Risk Required Braces or Orthoses Spinal: Lumbar Corset Other: Abdominal Binder Position Activity Restriction Spinal Precautions: No Bending,No Lifting,No Twisting Other position/activity restrictions: hx PD; monitor BP SUBJECTIVE: RN approved session. Pt pleasant and agreeable to therapy. Pt does c/o slight headache but states it is much better than yesterday. PAIN: 6/10: back Vitals: Vitals not assessed per clinical [...] independence withfunctional mobility. Functional Outcome Measures: Completed AM-[facility] Inpatient Mobility without Stair Climbing Raw Score : 15 AM-[facility] Inpatient without Stair Climbing T-Scale Score : [...] to navigate home distances. Additional Goals?: No Fpc Goals Time Frame for assisted goals : N/A due to short ELOS [...] HOLLY Morejon - 02/12/2022 2:39 PM EDT [facility] ORTHOPEDICS 7K Occupational Therapy Daily Note Time: Time In: 1356 Time Out: 1439 Timed Code Treatment Minutes: 43 Minutes Minutes: 43 Date: 02/12/2022 Patient Name: Alisia Correa, Gender: male [facility] 1960 (61 y.o.) Referring Practitioner: Maki [...] Patient tolerance of treatment: fair. Discharge Recommendations: Subacute/fpc facility and Inpatient Therapy Stay Equipment Recommendations: [...] Status: At risk for malnutrition (Comment) (02/10/22 4425) Context: Acute Illness Findings of the 6 clinical characteristics of malnutrition: Energy Intake: No significant decrease in energy intake Weight Loss: (4.8% wt loss in 18 days however now eating 76-100%) Body Fat Loss: No significant body fat loss Muscle Mass Loss: No significant muscle mass loss Fluid Accumulation: Mild Extremities Salesperson Stereo Equipment Strength: Not Performed Nutrition Assessment: Pt. nutritionally [...] Anthropometric Measures: Height: 5' 10 (177.8 cm) [place] Body Weight (IBW): 166 lbs (75 kg) [...] 1625-1806kcals (18-20kcals/kgm) Weight Used for Protein Requirements: [place] Protein (g/day): 105-150 grams (1.4-2 grams protein/kgm [...] minutes Evelina Parra MD, MD * Samantha Corrales, MUSIC AUTOGRAPHER - 02/12/2022 11:52 AM EDT [facility] INPATIENT PHYSICAL THERAPY DAILY NOTE [facility] ORTHOPEDICS 7K - 7K-12/012-A Time In: 827 Time Out: 0906 Timed Code Treatment Minutes: 38 Minutes Minutes: [...] Ambulation Assistance: Independent Transfer Assistance: Independent Active Travel Registered Nurse Oncology: Yes Additional Comments: pt states d/t PD, he requires assistance with transfers and ambulation; pt hadHH PT MUSIC AUTOGRAPHER Restrictions/Precautions: Restrictions/Precautions: General Precautions,Fall Risk Required Braces [...] with functional mobility. Functional Outcome Measures: Completed AM-[facility] Inpatient Mobility without Stair Climbing Raw Score : 12 AM-[facility] Inpatient without Stair Climbing T-Scale Score : [...] to navigate home distances. Additional Goals?: No Fpc Goals Time Frame for assisted goals : N/A due to short ELOS [...] 6:16 PM EDT Pt admitted to [facility] via cart/stretcher. Complaints: L2-S1 degenerative disc disease. [...] room. Explained patients right to have family, admissions representative or physician notified of their admission. Patient has Declined for physician to be notified. Patient has Declined for family/admissions representative to be notified. The patient is interested in [facility] to [facility] program?: No Policies and procedures for explained. All questions answered with no further questions at this time. Fall prevention and safety brochure discussed with patient. Bed alarm on. Call light in reach. * Peace Alonso RN - 02/11/2022 5:00 PM EDT Call placed to patients Dipti. Updated that the patient is transferring to [facility]. * Pamela Lees, PT - 02/11/2022 3:42 PM EDT [facility] INPATIENT PHYSICAL THERAPY DAILY NOTE [facility] ICU [...] Ambulation Assistance: Independent Transfer Assistance: Independent Active Travel Registered Nurse Oncology: Yes Additional Comments: pt states d/t PD, he requires assistance with transfers and ambulation; pt hadHH PT MUSIC AUTOGRAPHER Restrictions/Precautions: Restrictions/Precautions: General Precautions,Fall Risk Required Braces [...] jose lumbar corset Functional Outcome Measures: Completed AM-[facility] Inpatient Mobility Raw Score : 12 AM-[facility] Inpatient T-Scale Score : 35.33 ASSESSMENT: Assessment: [...] to navigate home distances. Additional Goals?: No Fpc Goals Time Frame for adjunct faculty for medical terminology goals : N/A due to short ELOS Following session, patient left in safe position with all fall risk precautions in place. * Danica AlejoIlsaMachado, COIL WRAPPER - 02/11/2022 1:02 PM EDT [facility] ICU STEPDOWN TELEMETRY 4K Occupational Therapy Daily Note Time: Time In: 1045 Time Out: 1129 Timed Code Treatment Minutes: 44 Minutes Minutes: 44 Date: 02/11/2022 Patient Name: Alisia Correa, Gender: male Room: [facility]025-A : 1960 (61 y.o.) Referring Practitioner: Maki [...] 02/07/2022 PCP: ELLEN CRABTREE, DO Interval History: S/p lumbar decompression with [...] the interim --cont midodrine Evelina Parra MD, MD * Don Singh PA-C - 02/11/2022 7:25 [...] muscle mass loss Fluid Accumulation: Mild Extremities Salesperson Stereo Equipment Strength: Not Performed Nutrition Assessment: Pt. nutritionally [...] Anthropometric Measures: Height: 5' 10 (177.8 cm) [place] Body Weight (IBW): 166 lbs (75 kg) [...] 1625-1806kcals (18-20kcals/kgm) Weight Used for Protein Requirements: [place] Protein (g/day): 105-150 grams (1.4-2 grams protein/kgm [...] Too soon to determine Stefania Lagunas RD, GAMALIEL Contact: * FARRAH Mora CNP - 02/10/2022 3:44 PM EDT Physician Progress Note PATIENT: ALISIA CORREA CSN #: [id number] : 1960 ADMIT DATE: 02/07/2022 8:09 AM [...] you! Ronny Salcedo, FARIBAN,RN, CRCR RN Clinical Supervisor Line Department P: [phone] Options provided: -- Hypovolemic Shock -- Hypovolemia [...] by: MARIELENA MUSTAFA 02/10/2022 3:43 PM * HOLLY Mchugh - 02/10/2022 2:42 PM EDT [facility] ICU STEPDOWN TELEMETRY 4K Occupational Therapy Daily Note Time: Time In: 1358 Time Out: 1421 Timed Code Treatment Minutes: 23 Minutes Minutes: 23 Date: 02/10/2022 Patient Name: Alisia Correa, Gender: male Room: [facility]025-A : 1960 (61 y.o.) Referring Practitioner: Maki [...] Alisia Correa Date of : 1960 Acct: [id number] Admit Date: 02/07/2022 Primary Curtain Roller Assembler: none Per Dr Schrader's note: REASON FOR [...] Calix PTA - 02/10/2022 9:53 AM EDT [facility] INPATIENT PHYSICAL THERAPY DAILY NOTE [facility] ICU STEPDOWN TELEMETRY K - -A Time In: 817 Time Out: 902 Timed Code Treatment Minutes: [...] Needs assistance Transfer Assistance: Needs assistance Active Travel Registered Nurse Oncology: No Additional Comments: pt states d/t PD, he requires assistance with transfers and ambulation; pt hadHH PT MUSIC AUTOGRAPHER Restrictions/Precautions: Restrictions/Precautions: General Precautions,Fall Risk Required Braces or Orthoses Spinal: Lumbar Corset Other: Abdominal Binder Position Activity Restriction Spinal Precautions: No Bending,No Lifting,No Twisting Other position/activity restrictions: hx PD; monitor BP SUBJECTIVE: RN approved session. Patient laying in bed upon arrival and agreeable to therapy. Patient requested to use BSC during session. PAIN: 6/10: back Vitals: Vitals not assessed per clinical [...] with functional mobility. Functional Outcome Measures: Completed -[facility] Inpatient Mobility Raw Score : 12 -[facility] Inpatient T-Scale Score : 35.33 ASSESSMENT: Assessment: [...] to navigate home distances. Additional Goals?: No Fpc Goals Time Frame for adjunct faculty for medical terminology goals : N/A due to short ELOS [...] hypotension, cardiology consulted Don Singh PAC * SHRAVAN Jerez-C - 02/09/2022 10:11 AM EDT Department of [...] Physician Progress Note PATIENT: ALISIA CORREA [facility] #: [id number] : 1960 ADMIT DATE: 02/07/2022 8:09 AM DISCH DATE: RESPONDING PROVIDER #: DON SINGH PA-C QUERY TEXT: Pt admitted with L2-S1 degenerative disc disease with neuroforaminal stenosis and radiculopathy and L2-L4 central canal stenosis, and underwent surgery on 02/07. 02/07 IM note states, Acute resp failure postop. 02/07 @ 1439: 90% on RA...91% on 6 L; 02/07 @ 2117: weaned to RA; 02/08 @ 00: 94% on 2 L. If possible, please [...] O2 via [place], [place] Thank you! Nevaeh Goldsmith RN, BSN, BOWSTRING MAKER, CCDS Clinical Supervisor Line Department Options provided: -- Acute pulmonary insufficiency following [...] Alisia Correa Date of : 1960 Acct: [id number] -A Primary Care Physician: ELLEN CRABTREE DO [...] 16 02/08/22 2200 (!) 108/41 61 16 02/08/22 2125 (!) 99/43 62 16 02/08/22 2033 (!) 104/45 97.8 F (36.6 C) Oral 64 16 99 % 02/08/22 1722 98 % 02/08/22 1701 (!) 83/47 [...] TROPONINT in the last 72 hours. Imaging: @[id number]@ EKG: Diet: ADULT DIET; Regular; 4 carb [...] sodium chloride sodium chloride 150 mL/hr at 04/24/22 0555 Assessment 1. Chronic hypotension on Midodrine with [...] Dr Jorgensen. Pt seen and examined by wi D/w Marielena Mustafa Pt did not respond [...] Oriented to room. Policies and procedures for 4K explained. All questions answered with no further questions at this time. Fall prevention and safety brochure discussed with patient. Bed alarm on. Call light in reach. * Oumou Dominguez - 02/08/2022 3:00 PM EDT 0913 Called Rapid Response due to continued low BP even after previous interventions. BP 68/44 HR 62 RR16 PO2 94% on 2LNC. 0915 Rapid Response team arrived. Marielena Mustafa NP at bedside. Saline bolus ordered and started. 0922 BP 70/46 0923 Orders received. Start on telemetry monitoring, CXR, Increase Midodrine to TID, Stat H+H. 0937 Orders received. H+H at 1700, CBC in AM 1007 CXR at bedside. BP 64/45. Hgb 11.4. IM notified. 1023 BP continues to be low. 500mL saline bolus started 1141 BP 85/47 after bolus. Updated HAND CEMENTER. 1218 BP 70/38, at bedside. Ordered to recheck manually in [...] Mauricio on 4K. Transport placed. * Jennifer Griffin, OT - 02/08/2022 1:01 PM EDT [facility] INPATIENT OCCUPATIONAL THERAPY [facility] ORTHOPEDICS 7K EVALUATION Time: Time [...] needing to return to bed from recliner. SHEET METAL SHOP SUPERVISOR present to assist. Pain: 12/26 Vitals: Blood Pressure: 70/38 upon arrival, improving [...] Needs assistance Transfer Assistance: Needs assistance Active Travel Registered Nurse Oncology: No Additional Comments: pt states d/t PD, he requires assistance with transfers and ambulation; pt hadHH PT MUSIC AUTOGRAPHER VISION:WFL HEARING: WFL COGNITION: Slow Processing and [...] Pandya, PT - 02/08/2022 10:33 AM EDT [facility] INPATIENT PHYSICAL THERAPY EVALUATION [facility] ORTHOPEDICS 7K - 7K-26/026-A Time [...] Assistance: Needs assistance ( assists him) Active Travel Registered Nurse Oncology: No Additional Comments: pt states d/t PD, he requires assistance with transfers and ambulation; pt hadHH PT MUSIC AUTOGRAPHER OBJECTIVE: Range of Motion: Bilateral Lower Extremity: [...] diaphoretic, and lightheaded Functional Outcome Measures: Completed AM-[facility] Inpatient Mobility Raw Score : 11 AM-[facility] Inpatient T-Scale Score : 33.86 ASSESSMENT: Activity [...] Recommendations: Discharge Recommendations: Continue to assess pending progress,Subacute/Care Home Facility. Unsafe to return home at this [...] to navigate home distances. Additional Goals?: No Assignment Manager Goals Time Frame for assisted goals : N/A due to short ELOS Following session, patient left in safe position with all fall risk precautions in place. Oumou Pandya, PT, DPT * Oumou Dominguez - 02/08/2022 [...] and faxed to pharmacy * Brianne Perez [facility] - 02/07/2022 4:29 PM EDT Pharmacy Note Alisia Correa was ordered Zetia 10 mg nightly. Per the [facility] Formulary Committee Policy, this medication is non-formulary [...] admitted to [facility] via cart/stretcher. Complaints: L2-S1 decompression/fusion. IV normal [...] room. Explained patients right to have family, admissions representative or physician notified of their admission. Patient has Declined for physician to be notified. Patient has Declined for family/admissions representative to be notified. The patient is interested in [facility] meds to beds program?: No Policies and procedures for 7K explained. All questions answered with no further questions at this time. Fall prevention and safety brochure discussed with patient. Bed alarm on. Call light in reach. * Kiara Toro RN - 02/07/2022 9:49 AM EDT ADMITTED TO [facility] AND ORIENTED TO UNIT. SCDS ON. FALL AND ALLERGY BANDS ON. PT VERBALIZED APPROVAL FOR FIRST NAME, LAST INITIAL AND PHYSICIAN NAME ON UNIT WHITEBOARD. * Evangelist Cummins - 01/20/2022 9:11 AM EDT Called for PAT reminder Lft Msg. documented in this [facility] Phone: 1(111) 930-479405-03-2022 Hospital Discharge instructions* Discharge Instr - DYLON* Nevaeh Oviedo RN - 02/18/2022 7:44 AM EDT Continuity of Care Form Patient Name: Alisia Correa : 1960 Admit date: 02/07/2022 Discharge date: Code Status Order: Full Code Advance Directives: Advance Care Flowsheet Documentation Date/Time Healthcare Directive Type of Healthcare Directive Copy in Chart Healthcare Agent Appointed Healthcare Agent's Name Healthcare Agent's Phone Number 02/07/22 7533 Yes, patient has an advance directive for healthcare treatment Durable power of bankruptcy attorney for health care No, copy requested from family Healthcare power of bankruptcy attorney Dipti- -- Admitting Physician: Frank Reddy MD PCP: ELLEN CRABTREE DO Discharging Nurse: Discharging Hospital Unit/Room#: 7K-12/012-A Discharging Unit Phone Number: Emergency Contact: Extended Emergency Contact Information Primary Emergency Contact: Dipti Correa Mobile Relation: Spouse Preferred language: Kiswahili Security Chief Museum needed? No Past Surgical History: Past Surgical History: Procedure Laterality Date BACK SURGERY x8 CYST REMOVAL spine with back surgery ESOPHAGUS SURGERY for cancer HAND SURGERY x3 HIP ARTHROPLASTY Bilateral KNEE ARTHROPLASTY Bilateral left x2 LUMBAR FUSION N/A 02/07/2022 L2-S1 DECOMPRESSION L2-S1 POSTERIOR FUSION WITH ILIAC BOLTS, L5-S1 TLIF performed by Frank Reddy MD at [facility] OR NECK SURGERY lymph nodes [...] Assisted Dressing Assisted Toileting Assisted Feeding Assisted Edger Feeder Assisted Med Delivery whole Wound Care Documentation [...] Diabetic Foot Ulcers Offloading not required 02/15/22 162 Wound Assessment Dry 02/16/22 0845 Drainage Amount [...] applicable) Name: Address: Dialysis Schedule: Phone: Fax: Groundman/Photo Tube Assembler signature: {Esignature:[id number]} PHYSICIAN SECTION Prognosis: {Prognosis:3408593233} Condition at Discharge: {MH Patient Condition:[id number]} Rehab Potential (if transferring to Rehab): {Prognosis:3535003100} Recommended Labs or Other Treatments After Discharge: Physician Certification: I certify the above information and transfer of Alisia Correa is necessary for the continuing treatment of the diagnosis listed and that he requires {Admit to Appropriate Level of Care:37647} for {GREATER/LESS:862826332} 30 days. Update Admission H&P: {CHP DME Changes in HandP:642407942} PHYSICIAN SIGNATURE: * Additional Instructions* Nevaeh Oviedo [...] All vegetables, especially asparagus, jack sprouts, broccoli, Bowdle sprouts, cabbage, carrots, cauliflower, celery, corn, greens, [...] taking more than one drug. This includes cuub-bpf-xugggky medication and herb or dietary supplements. Plan [...] dr schrader 6-8 weeks documented in this [facility] [employer] Work Phone: 1(949) 118-467604-23-2022 NotePROCEDURE: XR CHEST PORTABLE CLINICAL INFORMATION: SOB. [...] Signed by: Romel Maldonado DO 02/08/22 [facility] NotePROCEDURE: XR CHEST PORTABLE CLINICAL INFORMATION: SOB. [...] stable degenerative changes of the acromioclavicular joints. [facility] [id number] NotePROCEDURE: XR LUMBAR SPINE 1 VW CLINICAL [...] Way MD 02/07/22 Final [facility]Saint [facility]2022 NotePROCEDURE: XR LUMBAR SPINE 1 VW [...] behind the L2 and L3 vertebral bodies. [facility] [id number] Evaluation note* Encounter Date Diagnosis Assessment Notes [...] patient is cleared for sugery with Dr. Reddy. Jan, History of kidney stones (ICD-10 - Z87.442) Refill provided of the above medication. Jan, MRSA (methicillin resistant Staphylococcus aureus) (ICD-10 - A49.02) Nasal swab noted MRSA. Advised patient to poultry picker antibiotic and start it as soon as possible. [facility] Other 04-07-2022 NotePROCEDURE: XR CHEST (2 VW) CLINICAL INFORMATION: [...] Signed by: Olga Espinoza MD 01/23/22 Final resultSaint [facility] [place]-2022 Evaluation note* Encounter Date Diagnosis Assessment Notes Treatment Notes Treatment Clinical Notes Jan, Parkinsonism (ICD-10 - G20) Jan, Diabetes (ICD-10 - E11.9) [facility] Other 03-28-2022 Evaluation note* Encounter Date Diagnosis Assessment Notes Treatment Notes Treatment Clinical Notes Dec, Constipation (ICD-10 - K59.00) [facility] Other 02-17-2022 Evaluation note* Encounter Date Diagnosis Assessment Notes Treatment Notes Treatment Clinical Notes Nov, Hyperlipidemia (ICD-10 - E78.5) Nov, Parkinsonism (ICD-10 - G20) Patient following with neurologist Dr. Mancia and briquetter operator Dr. Harris. He reports improvement with his [...] symptoms, symptom details unspecified (ICD-10 - N40.1) [facility] Other 02-07-2022 Miscellaneous Notes* Telephone Encounter - Chrissy Christian - 11/25/2021 3:17 PM EST FINAL ATTEMPT Called and left detailed message for patient to call to schedule procedure with pain management. Will follow up. Patient provided with direct extension to reach surgical coordinators. If patient calls back, please transfer to [phone]. * Telephone Encounter - Chrissy Christian - 11/21/2021 6:07 PM EST Bilateral L 2-3 ,3-L4, L4-L5 and L5-S1 FACET ALISIA CORERA [id number] JEANNIE HENDERSON Called and left detailed message for patient to call to schedule procedure with pain management. Will follow up. Patient provided with direct extension to reach surgical coordinators. If patient calls back, please transfer to [phone]. * Telephone Encounter - Chrissy Christian - 11/14/2021 11:53 AM EST Bilateral L 2-3 ,3-L4, L4-L5 and L5-S1 FACET ALISIA CORREA [id number] CLA Called and left detailed message for patient to call to schedule procedure with pain management. Will follow up. Patient provided with direct extension to reach surgical coordinators. If patient calls back, please transfer to [phone]. * Telephone Encounter - Kiara Dhaliwal RN [...] relief from today's block. documented [facility]* Encounter Date Diagnosis Assessment Notes Treatment Notes Treatment Clinical Notes Oct, Hypotension, unspecified hypotension type (ICD-10 - I95.9) Oct, Risk for falls (ICD-10 - Z91.81) Oct, Diabetes (ICD-10 - E11.9) Oct, Neuropathy (ICD-10 - G62.9) Oct, Failed back syndrome (ICD-10 - M96.1) Oct, Parkinsonism (ICD-10 - G20) [facility] Other 12-13-2021 Evaluation note* Encounter Date Diagnosis Assessment Notes Treatment Notes Treatment Clinical Notes Sep, Parkinsonism (ICD-10 - G20) [facility] Other 11-16-2021 Evaluation note* Encounter Date Diagnosis Assessment Notes Treatment Notes Treatment Clinical Notes Aug, Benign prostatic hyperplasia with lower urinary tract symptoms (ICD-10 - N40.1) [facility] Other 11-09-2021 Evaluation note* Encounter Date Diagnosis [...] I strongly recommend the patient contact his erosion control coordinator to be evaluated. 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 [facility] Other 10-28-2020 History of Present illness Narrative* [facility] (Ct), CT - 08/15/2020 8:40 AM EDT Radiology Service [...] 15, 2020 8:27 AM [facility] of Present illness Narrative* [facility] (Ct), CT - 06/15/2020 9:00 AM EDT Radiology Service [...] 15, 2020 9:03 AM [facility] History of Past illness Narrative* Problem Noted Date Resolved Date Ulcerative lesion 12/07/2017 07/21/2019 Glenohumeral arthritis 07/17/2016 9 SPRAIN OF NECK (01/15/) 03/06/2004 07/21/20 Brachial neuritis or radiculitis 03/06/2004 12/22/2018 Carpal tunnel syndrome 03/06/2004 9 documented as of this encounter (statuses as of 01/28/2022) [facility] of [facility] Narrative* Problem Noted Date Resolved Date Ulcerative lesion 12/07/2017 07/21/2019 Glenohumeral arthritis 07/17/2016 9 Urgency of urination 07/31/2006 12/05/2022 SPRAIN OF NECK () 03/06/2004 07/21/20 Brachial neuritis or radiculitis 03/06/2004 12/22/2018 Carpal tunnel syndrome 03/06/2004 9 documented as of this encounter (statuses as of 12/06/2022) [facility] of [facility] Narrative* Problem Noted Date Resolved Date Ulcerative lesion 12/07/2017 07/21/2019 Glenohumeral arthritis 07/17/2016 9 Urgency of urination 07/31/2006 12/05/2022 SPRAIN OF NECK () 03/06/2004 07/21/20 Brachial neuritis or radiculitis 03/06/2004 12/22/2018 Carpal tunnel syndrome 03/06/2004 9 documented as of this encounter (statuses as of 12/25/2022) [facility] of [facility] illness Narrative* Problem Noted Date Diagnosed Date Resolved Date Ulcerative lesion 12/07/2017 07/21/2019 Glenohumeral arthritis 07/17/201612/22 Urgency of urination 07/31/2006 02/17/2 023 SPRAIN OF NECK () 03/06/200412/2018 Brachial neuritis or radiculitis 03/06/2004 12/22/2018 Carpal tunnel syndrome 03/06/200412/22 documented as of this encounter (statuses as of 05/29/2023) [facility] of [facility] Narrative* Problem Noted Date Diagnosed Date Resolved Date Ulcerative lesion 12/07/2017 07/21/2019 Glenohumeral arthritis 07/17/201612/22 Urgency of urination 07/31/2006 023 SPRAIN OF NECK () 03/06/200412/2018 Brachial neuritis or radiculitis 03/06/2004 12/22/2018 Carpal tunnel syndrome 03/06/200412/22 documented as of this encounter (statuses as of 05/29/2023) [facility] Narrative* Problem Noted Date Diagnosed Date Resolved Date Ulcerative lesion 12/07/2017 07/21/2019 Glenohumeral arthritis 07/17/201612/22 Urgency of urination 07/31/2006 023 SPRAIN OF NECK () 03/06/200412/2018 Brachial neuritis or radiculitis 03/06/2004 12/22/2018 Carpal tunnel syndrome 03/06/200412/22 documented as of this encounter (statuses as of 05/29/2023) [facility] general Narrative - Reported* Type Description Date Medical History 06/07/12 Stress Test [facility] Medical History 2008-colonoscopy wit h Dr. Ordonez; 07/2016 colonoscopy/egd [facility] Medical History 01/26/15 Labs Medical History 03/2016- [place] test [place]ocar [place] Medical History 03/2016 EGD [place] Medical History 08/20/16 PSA ( 0.79) Medical [...] total hip-CC 04/10/20 Hospitalization History SEE ABOVE [facility] Other 08-20-2012 History general Narrative - Reported* Type Description Date Medical History 06/07/12 Stress Test NO Medical History 2008-colonoscopy wit h Dr. Ordonez; 07/2016 colonoscopy/egd [facility] Medical History 01/26/15 Labs Medical History 03/2016- [place] test and [place]ocar diogram [place] Medical History 03/2016 EGD [place] Medical History 08/20/16 PSA ( 0.79) Medical [...] lumbar nerve blocks Dr. Roman hinkle 10/2021 Hospitalization History SEE ABOVE [facility] Other 08-20-2012 History general Narrative - Reported* Type Description Date Medical History 06/07/12 Stress Test NO Medical History 2008-colonoscopy ruba Ordonez; 07/2016 colonoscopy/egd [facility] Medical History 01/26/15 Labs Medical History 03/2016- [place] test [place] Medical History 03/2016 EGD [place] Medical History 08/20/16 PSA ( 0.79) Medical [...] lumbar nerve blocks Dr. Roman hinkle 10/2021 Hospitalization History SEE ABOVE [facility] Other 08-20-2012 History general Narrative - Reported* Type Description Date Medical History 06/07/12 Stress Test NO Medical History 2008-colonoscopy ruba Ordonez; 07/2016 colonoscopy/egd [facility] Medical History 01/26/15 Labs Medical History 03/2016- [place] test [place] Medical History 03/2016 EGD at [place] Medical History 08/20/16 PSA ( 0.79) Medical [...] Dr Romo 01/2022 Hospitalization History SEE ABOVE [facility] Other 08-20-2012 History general Narrative - Reported* Type Description Date Medical History 06/07/12 Stress Test [facility] Medical History 2008-colonoscopy wit h Dr. Ordonez; 07/2016 colonoscopy/egd [facility] Medical History 01/26/15 Labs Medical History 03/2016- [place] test and [place] diogram [place] Medical History 03/2016 EGD [place] Medical History 08/20/16 PSA ( 0.79) Medical [...] History SEE ABOVE Hospitalization History pneumonia 10/2022 [facility] Other 08-20-2012 History general Narrative - Reported* Type Description Date Medical History 06/07/12 Stress Test [facility] Medical History 2008-colonoscopy wit h Dr. Ordonez; 07/2016 colonoscopy/egd [facility] Medical History 01/26/15 Labs Medical History 03/2016- stress test and [place]ocar diogram at [place] Medical History 03/2016 EGD [place] Medical History 08/20/16 PSA ( 0.79) Medical [...] History SEE ABOVE Hospitalization History pneumonia 10/2022 [facility] Other Chief complaint Narrative - ReportedALISIA CORREA is being seen for a consultation for chest pain.-[facility] [address] DO Work Phone: Chief complaint Narrative - Reported* ALISIA CORREA is being seen for a consultation for chest pain. * 60-year-old white male who is being evaluated at the request of PCP for symptoms of dyspnea and chest pain with syncope. The patient appears older than his stated age and unfortunately has history ofParkinson's disease followed by neurology from [place] on medical therapy. The patient has been [...] 7 Parkinson's disease followed by neurology from [place]. * 8 obesity, encouraged the patient to reduce caloric consumption * 9 possible PAD, patient is following up with podiatry -[address] Work Phone: Evaluation + Plan note Future Appointments Appointment Date:02/20/2023 09:15:00 AM Scheduled Provider:Fidel IBARRA MD Location:[facility] Appointment Type:URO Office Visit [facility] evaluation + Plan note Future Appointments Appointment Date:03/20/2023 09:00:00 AM Scheduled Provider: Location:[facility] Appointment Type:URO Nurse Visit [facility] evaluation + Plan note Future Appointments Appointment Date:04/17/2023 09:00:00 AM Scheduled Provider: Location:[facility] Appointment Type:URO Nurse Visit [facility] evaluation + Plan note Future Appointments Appointment Date:05/25/2023 11:00:00 AM Scheduled Provider: Location:[facility] Appointment Type:URO Nurse Visit [facility] evaluation + Plan note Future Appointments Appointment Date:06/19/2023 11:00:00 AM Scheduled Provider: Location:[facility] Appointment Type:URO Nurse Visit [facility] evaluation + Plan note Future Appointments Appointment Date:06/19/2023 11:00:00 AM Scheduled Provider: Location:[facility] Appointment Type:URO Nurse Visit Diagnostic Tests Pending * [facility] Future Appointments Appointment Date:07/17/2023 11:00:00 AM Scheduled Provider: Location:[facility] Appointment Type:URO Nurse Visit [facility] evaluation + Plan note Future Appointments Appointment Date:07/17/2023 11:00:00 AM Scheduled Provider: Location:[facility] Appointment Type:URO Nurse Visit Diagnostic Tests Pending * Urine Culture [facility] Future Appointments Appointment Date:08/14/2023 11:00:00 AM Scheduled Provider: Location:[facility] Appointment Type:URO Nurse Visit [facility] evaluation + Plan note Future Appointments Appointment Date:08/14/2023 11:00:00 AM Scheduled Provider: Location:[facility] Appointment Type:URO Nurse Visit Diagnostic Tests Pending * Urine Culture [facility] Future Appointments Appointment Date:09/14/2023 11:00:00 AM Scheduled Provider: Location:[facility] Appointment Type:URO Nurse Visit [facility] evaluation + Plan note Future Appointments Appointment Date:10/20/2023 11:00:00 AM Scheduled Provider: Location:[facility] Appointment Type:URO Nurse Visit [facility] evaluation + Plan note Future Appointments Appointment Date:11/16/2023 11:00:00 AM Scheduled Provider: Location:[facility] Appointment Type:URO Nurse Visit Diagnostic Tests Pending * Urine Culture [facility]21[facility] Future Appointments Appointment Date:12/14/2023 11:30:00 AM Scheduled Provider: Location:[facility] Appointment Type:URO Nurse Visit [facility] evaluation + Plan note Future Appointments Appointment Date:02/01/2024 11:00:00 AM Scheduled Provider: Location:[facility] Appointment Type:URO Nurse Visit [facility] evaluation + Plan note Future Appointments Appointment Date:02/22/2024 11:00:00 AM Scheduled Provider: Location:[facility] Appointment Type:URO Nurse Visit [facility] evaluation + Plan note Future Appointments Appointment Date:03/15/2024 10:30:00 AM Scheduled Provider: Location:[facility] Appointment Type:URO Nurse Visit [facility] evaluation + Plan note Future Appointments Appointment Date:03/15/2024 10:30:00 AM Scheduled Provider: Location:[facility] Appointment Type:URO Nurse Visit Diagnostic Tests Pending * Urine Culture [facility]23/[facility] Future Appointments Appointment Date:04/05/2024 02:40:00 PM Scheduled Provider:TITI Duncan APRN Pippa X Location:[facility] Appointment Type:URO Office Visit [facility] evaluation + Plan note Future Appointments Appointment Date:04/26/2024 11:30:00 AM Scheduled Provider:TIIT Duncan APRN Pippa X Location:[facility] Appointment Type:URO Office Visit [facility] evaluation + Plan note Future Appointments Appointment Date:04/26/2024 11:30:00 AM Scheduled Provider:TITI Duncan APRN Pippa Sunday Location:[facility] Appointment Type:URO Office Visit Diagnostic Tests Pending * Urine Culture 04[facility]05/24 [facility]* Diagnosis Lumbar stenosis with neurogenic claudication- Primary Spinal stenosis, lumbar region, with neurogenic claudication Idiopathic hypotension Hypotension, unspecified documented in this encounter Note Phone: [email or web address] noteNo [facility] Other Evaluation note* Diagnosis NO SHOW- Primary [facility]* Diagnosis Postlaminectomy syndrome of lumbar region Postlaminectomy syndrome, lumbar region Pain in thoracic spine Spinal cord stimulator status Other postprocedural status documented [facility] this [facility]* Diagnosis Radiculopathy of lumbar region Thoracic or lumbosacral neuritis or radiculitis, unspecified documented [facility]* Diagnosis Pain in thoracic spine S/P insertion of spinal cord stimulator documented [facility] this [facility]* Diagnosis Parkinson's disease Paralysis agitans [facility] Diagnosis Parkinson's disease Paralysis agitans documented in this encounter [facility]* Diagnosis Parkinson's disease without dyskinesia or fluctuating manifestations- Primary Spinal stenosis of lumbar region with neurogenic claudication Anxiety Anxiety state, unspecified [facility] Diagnosis Orthostasis Orthostatic hypotension [facility] this [facility]* Diagnosis Onset Date Resolution Status Diarrhea acute Incontinence of bowel acute Mucus in stool acute Nausea acute [facility] Work Phone: Evaluation note* Diagnosis Onset Date Resolution Status Diarrhea acute Incontinence of bowel acute Mucus in stool acute Nausea acute Chronic pain syndrome acute Hyperlipidemia acute Hypotestosteronism acute Mucus in stool acute Neurogenic bladder acute Neurogenic bowel acute Suprapubic catheter acute [facility] Work Phone: Hospital course Narrative No data available for this section [facility] Hospital Discharge instructions No data available for this section [facility] InstructionsNot on filedocumented in this encounter [facility] SystemInstructionsNot on filedocumented in this encounter [facility] A[facility] SystemInstructionsNot on filedocumented in this encounter [facility] Api[facility] SystemProgress note No data available for this section [facility] reason for referral (narrative)* Reason Home physical therap y evaluation and treatment requested. Diagnosis 1 Hypotension, unspeci fied hypotension type (I95.9) Diagnosis 2 Diabetes (E11.9) Diagnosis 3 Parkinsonism (G20) Diagnosis 4 Neuropathy (G62.9) Diagnosis 5 Failed back syndrome (M96.1) Diagnosis 6 Risk for falls (Z91. 81) Referral Organization [facility] [place] Referring Provider First Name Ellen Referring Provider Last Name Leyda Referring Provider Specialty Family Prac candice Referred Organization [facility] Referred Address [address] [place] [id number] Referred Provider Specialty Physical The rapist Referral Priority Routine [place] [facility] Other Reason for referral (narrative)* Reason Patient is needing i n office consultation for change in stool and nausea. Please call patient with appointment date and time Diagnosis 1 Change in stool (R19 .5) Diagnosis 2 Nausea (R11.0) Referral Organization [facility] [place] Referring Provider First Name Ellen Referring Provider Last Name Leyda Referring Provider Specialty Family Prac candice Referred Organization [facility] Referred Address [address] [place] [phone] Referred Provider Specialty Gastroentero logy Referral Priority Routine [facility] Other Reason for visit Narrative* Auth/Cert Specialty Diagnoses / Procedures Referred By Contac t Referred To Contact Diagnoses Lumbosacral spinal stenosis LUMBOSACRAL SPINAL STENOSIS Procedures POSTERIOR SEGMENTAL INSTRUMENTATION 3-6 VRT SEG NV INSJ BIOMCHN DEV INTERVERTEBRAL DSC SPC W/ARTHRD NV ALLOGRAFT FOR SPINE SURGERY ONLY MORSELIZED NV ARTHRODESIS COMBINED TQ 1NTRSPC LUMBAR NV ALEGRIA FACETEC/FORAMOT DRG ARTHRD LUMBAR 1 VRT SGM NV ALEGRIA FACETEC/FORAMOT DRG ARTHRD LMBR EA ADDL SGM NV ARTHRODESIS PST/PSTLAT TQ 1NTRSPC EA ADDL NTRSPC L2-S1 DECOMPRESSION L2-S1 POSTERIOR FUSION WITH ILIAC BOLTS, L5-S1 TLIF Frank Reddy MD [facility] [address] [place] [address] [id number] [place] [address] Referral ID Status Reason Start Date Expiration Date Visits Re quested Visits Authorized [id number] 1 1 Note Phone: Summary Purpose Family History No Family [...] malignant neoplasm of brain: Brother(V16.8, Z80.8) Status:Active Relationship Condition Age at Onset Recorded Date/T haylee brother Malignant neoplasm of lung Unknown grandparent Malignant neoplasm of lung Unknown father Diabetes mellitus Unknown father Hypertension Unknown brother Malignant neoplasm metastatic to brain Un known Not Specified Hypertension Unknown Not Specified Diabetes mellitus Unknown Not Specified Cardiac disease Unknown brother Unknown Malignant neoplasm Unknown Hypertension Unknown grandparent Malignant neoplasm Unknown Unknown Heart disease Unknown Relationship Condition Age at Onset Recorded Date/T haylee brother Malignant neoplasm of lung Unknown Malignant neoplasm metastatic to brain Un known grandparent Malignant neoplasm of lung Unknown father Diabetes mellitus Unknown Hypertension Unknown Not Specified Hypertension Unknown Diabetes mellitus Unknown Cardiac disease Unknown brother Unknown grandparent Unknown Advance Directives No Advanced Directives Records FoundDocuments on File Type Date Recorded 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 Advance Directive(s) 11/08/2021 10:04 AM [...] Comments Full Code Order Discussed With: Patient Latest Code Status on File Code Status Date Activated Date Inactivated Comments Full Code 02/07/2021 1:34 PM 02/19/2021 4:48 PM Code Status History Code Status Date Activated Date Inactivated Comments Full Code 02/03/2021 2:46 PM 02/07/2021 1:08 PM Latest Code Status on File Code Status Date Activated Date Inactivated Comments Full Code 02/07/2021 1:34 PM 02/19/2021 4:48 PM Code Status History Code Status Date Activated Date Inactivated Comments Full Code 02/03/2021 2:46 PM 02/07/2021 1:08 PM Advance Directive Response Recorded Date/ Time Advance Directives No November 10, 2023 4:28pm Hospital Course Note HNO ID: [id number] Author: Rolly Naik Service: Orthopaedic Surgery Author Type: Physician Court Registry Officer Type: Discharge Summary Filed: 11/12/2019 2:21 PM [...] (more content not included)... Note HNO ID: [id number] Author: Jason Guevara Jr. Service: Orthopaedic Surgery Author Type: Physician Type: Discharge Summary Filed: 05/04/2020 7:55 AM Note Text: DISCHARGE SUMMARY Patient Name: Alisia Corera : 1960 ADMISSION DATE: 05/03/2020 DISCHARGE DATE: [...] (more content not included)... Note HNO ID: [id number] Author: Judy Mathews Service: ? Author Type: Nurse Lump Roller Type: Anesthesia Procedure Notes Filed: 05/03/2020 1:32 PM Note Text: ANESTHESIOLOGY PROCEDURE NOTE Airway General Information Procedure Start Time/Medication Administration: 05/03/2020 12:55 PM Patient location during procedure: OR Staffing CIRCUS RIDER: Kathleen Mathews Performed by: APRIL Indications and [...] not included)... Procedure Findings Note HNO ID: [id number] Author: Judy Jaquez) Bisi Service: ? 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 [address] ,[place], [place],[address] Referred Provider Specialty Gastroentero logy Referral Priority Routine General Notes Tomeka Hussein 021 10:28:40 AM >Graciela, is this suppose to be urgentVeveruriGraciela A 08/06/2021 10:49:26 AM > no, sorry must have accidentally made urgent :) Specialty Diagnoses / Procedures Referred By Agustina molina Referred To Contact Rehabilitation Diagnoses Parkinson's disease without dyskinesia or fluctuating manifestations Loree Linda, DOWEL 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[address] [address] Referral ID Status Reason Start Date Expiration Date Visits Requested Visits Authorized [id number] Pending Review Specialty Services Required 11/16/2023 11/15/2024 1 1 Specialty Diagnoses / Procedures Referred By Agustina molina Referred To Contact Speech Pathology Diagnoses Parkinson's disease without dyskinesia or fluctuating manifestations Loree Linda, [address] [address] Referral ID Status Reason Start Date Expiration Date Visits Requested Visits Authorized [id number] Pending Review Specialty Services Required 11/16/2023 11/15/2024 1 1 Health Concerns Infection Onset Date Last Indicated Resolved Time COVID-19 Confirmed Comment:20 11/26/22: Pt requiring HiFlo from 2 L NC decadron started 11/20/2022 11/20/2022 Chief Complaint and Reason for Visit Chief Complaint 2 Month Follow Up Amb Documentation change in stool/nausea/dr crabtree referred Reason for Visit Diarrhea Incontinence of bowel Mucus in stool Nausea Chief Complaint Amb Documentation change in stool/nausea/dr crabtree referred 3 month follow up Reason for Visit Diarrhea Incontinence of bowel Mucus in stool Nausea Chronic pain syndrome Hyperlipidemia Hypotestosteronism Mucus in stool Neurogenic bladder Neurogenic bowel Suprapubic catheter Chief Complaint Amb Documentation change in stool/nausea/dr crabtree referred 3 month follow up Diarrhea, mucus in stool, fecal incontience Diarrhea, mucus in stool, fecal incontience Reason for Visit Diarrhea Incontinence of bowel Mucus in stool Nausea Chronic pain syndrome Hyperlipidemia Hypotestosteronism Mucus in stool Neurogenic bladder Neurogenic bowel Suprapubic catheter Additional Source Comments (unrecognized sect ion and [...] section and content) DATE CREATED AUTHOR 04/09/2018 [facility] DATE CREATED AUTHOR AUTHOR'S ORGANIZ ATION 04/14/2018 [facility] DATE CREATED AUTHOR AUTHOR'S ORGANIZ ATION 04/14/2018 [facility] DATE CREATED AUTHOR AUTHOR'S ORGANIZ ATION 05/12/2020 [facility] DATE CREATED AUTHOR AUTHOR'S ORGANIZ ATION 09/17/2020 [facility] DATE CREATED AUTHOR AUTHOR'S ORGANIZ ATION 08/18/2021 [employer] DATE CREATED AUTHOR AUTHOR'S ORGANIZ ATION 09/10/2021 [facility] DATE CREATED AUTHOR AUTHOR'S ORGANIZ ATION 02/23/2022 [facility] DATE CREATED AUTHOR AUTHOR'S ORGANIZ ATION 12/15/2022 [facility] DATE CREATED AUTHOR AUTHOR'S ORGANIZ ATION 12/26/2022 [facility] DATE CREATED AUTHOR AUTHOR'S ORGANIZ ATION 03/29/2023 [facility] DATE CREATED AUTHOR AUTHOR'S ORGANIZ ATION 04/02/2024 [facility] DATE CREATED AUTHOR AUTHOR'S ORGANIZ ATION 04/08/2024 [facility] DATE CREATED AUTHOR AUTHOR'S ORGANIZ ATION 04/12/2024 [facility] DATE CREATED AUTHOR AUTHOR'S ORGANIZ ATION 04/12/2024 [facility] DATE CREATED AUTHOR AUTHOR'S ORGANIZ ATION 04/15/2024 [facility] Source Comments (unrecognize d section and content) In the event this informatio n is protected by the Federal Confidentiality of Alcohol and Drug Abuse Patient Records regulations: The Federal rules restrict any use of the information to criminally investigate or prosecute any alcohol or drug abuse patient.[facility] [facility] the event this information is protected by the Federal Confidentiality of Alcohol and Drug Abuse Patient Records regulations: The Federal rules restrict any use of the information to criminally investigate or prosecute any alcohol or drug abuse patient.[place] [facility] the event this information is protected by the Federal Confidentiality of Alcohol and Drug Abuse Patient Records regulations: The Federal rules restrict any use of the information to criminally investigate or prosecute any alcohol or drug abuse patient.[place] [facility] the event this information is protected by the Federal Confidentiality of Alcohol and Drug Abuse Patient Records regulations: The Federal rules restrict any use of the information to criminally investigate or prosecute any alcohol or drug abuse patient.[place] [facility] the event this information is protected by the Federal Confidentiality of Alcohol and Drug Abuse Patient Records regulations: The Federal rules restrict any use of the information to criminally investigate or prosecute any alcohol or drug abuse patient.[place] [facility] the event this information is protected by the Federal Confidentiality of Alcohol and Drug Abuse Patient Records regulations: The Federal rules restrict any use of the information to criminally investigate or prosecute any alcohol or drug abuse patient.[facility] [facility] Reason for Visit (unrecogniz ed section and content) Reason Comments Post Op Reason Comments Medication Problem Reason Onset Date Comments No Show 12/24/2022 No show Reason Comments Radiology CT Reason Onset Date Comments Med Refill 11/09/2023 Reason Comments Med Refill Reason Onset Date Comments Med Refill 12/11/2023 Care Teams (unrecognized sec tion and content) Cable Layer Relationship Specialty Start Date End Date Ellen Crabtree [address] [place] [phone] PCP - General 06/10/02 Cable Layer Relationship Specialty Start Date End Date Ellen Crabtree DO PCP - General Family Medicine 01/23/22 Cable Layer Relationship Specialty Start Date End Date Ellen Crabtree [address] [place] [phone] PCP - General 06/10/02 Cable Layer Relationship Specialty Start Date End Date Ellen Crabtree [address] [place] [phone] PCP - General 06/10/02 Cable Layer Relationship Specialty Start Date End Date Ellen Crabtree [address] [place] [phone] PCP - General 06/10/02 Cable Layer Relationship Specialty Start Date End Date Ellen Crabtree [address] [place] [phone] PCP - General 06/10/02 Cable Layer Relationship Specialty Start Date End Date Ellen Crabtree [address] [place] [phone] PCP - General 06/10/02 Cable Layer Relationship Specialty Start Date End Date Ellen Crabtree DO [address] [place] [phone] PCP - General Family Medicine 01/17/21 Cable Layer Relationship Specialty Start Date End Date Ellen Crabtree DO [address] [place] [phone] PCP - General Family Medicine 01/17/21 Cable Layer Relationship Specialty Start Date End Date Ellen Crabtree DO [address] [place] [phone] PCP - General Family Medicine 01/17/21 Team Status: Active Member Role Status Aneta Bowden Specialist Active Ren Watson MD Specialist Active Graciela Macias LPN Care Manager Active Fidel Ibarra MD Specialist Active Ellen Crabtree DO Primary Care Provider Active Team Status: Inactive Member Role Status Aneta rCabtree DO Attending Provider Active Start: November 10, 2023 End: November 10, 2023 Team Status: Active Member Role Status Aneta Crabtree DO Primary Care Provider Active Sta rt: January 06, 2024 Graciela Macias LPN Attending Provider Active Sta rt: January 06, 2024 Team Status: Inactive Member Role Status Aneta Crabtree DO Primary Care Provider Active Sta rt: January 22, 2024 End: January 22, 2024 Bernice L Ly , DO Attending Provider Active St art: January 22, 2024 End: January 22, 2024 Team Status: Inactive Member Role Status Aneta Crabtree DO Primary Care Provide r, Attending Provider Active Start: February 10, 2024 End: February 10, 2024 Team Status: Inactive Member Role Status Aneta Crabtree DO Primary Care Provider Active Sta rt: February 11, 2024 End: February 11, 2024 Bernice L Ly , DO Attending Provider Active St art: February 11, 2024 End: February 11, 2024 Team Status: Active Member Role Status Aneta Crabtree DO Primary Care Provider Active Sta rt: February 11, 2024 Bernice L Ly , DO Attending Provider, Other Provider Active Start: February 11, 2024 Ordered Prescriptions (unrec ognized section and content) Prescription Sig Dispensed Refills Start Date cyclobenzaprine (FLEXERIL) 10 MG tablet Take 1 [...] Peace Sol RN)1344 (Given - Provider: Marion Sharma, ALFONSO)1805 (Given - Provider: Marion Sharma RN)2219 (Given - Provider: Gladis Lezama RN) 0222 (Given - Provider: Gladis Lezama RN)1400 (Due)1800 (Due)2200 (Due) carbidopa-levodopa (SINEMET CR) 25-100 MG per extended release tablet 2 tablet(Linked Group 1) 2 tablet, Oral, 2 TIMES DAILY, First dose on Thu02/08/22 at 0600, Until Discontinued, Do Not Crush or Chew 0617 (Given - Provider: Lyn Hammond RN)0857 [...] RN)2110 (Given - Provider: Peace Sol RN) 1344 [...] Peace Sol RN)0942 (Given - Provider: Marion Sharma, ALFONSO) 0533 (Given - Provider: Gladis Lezama RN)1000 [...] - Provider: Gladis Lezama RN) 2099 (Due) ezetimibe (ZETIA) tablet 10 mg 10 [...] Das RCP)1756 (Given - Provider: Marci Rivera RCP)2000 (Canceled Entry - Provider: Marci Rivera RCP) 0818 (Given - Provider: Iveth Noe RCP)1821 (Given - Provider: Vickey Boykin RCP) 0845 (Not Given - Provider: Vickey oBykin RCP - Reason: Other - Comment: with [...] RN - Reason: Order parameters not met) 09 (Not Given - Provider: Marion Sharma RN - Reason: Patient/family refused) 0845 (Not Given - Provider: Nevaeh Oviedo RN - Reason: Other - Comment: loose stools) pregabalin (LYRICA) capsule 300 mg 300 mg, Oral, 2 TIMES DAILY, First dose (after last reorder) on Thu02/07/22 at 2100, Until Discontinued 08 (Given - Provider: Malik De La Garza RN)2110 (Given - Provider: Peace Sol RN) 09 (Given - Provider: Marion Sharma, ALFONSO)2019 (Given - Provider: Gladis Lezama RN) 850 (Given - Provider: Nevaeh Oviedo RN)2099 (Due) QUEtiapine (SEROQUEL) tablet 25 mg 25 mg, Oral, NIGHTLY, First dose on Thu02/07/22 at 2100, Until Discontinued 2112 (Given - Provider: Peace Sol RN) 2014 (Given - Provider: Gladis Lezama RN) 2099 (Due) sennosides-docusate sodium (SENOKOT-S) 8.6-50 MG tablet 1 tablet 1 tablet, Oral, 2 TIMES DAILY, First dose on Thu02/07/22 at 2100, Until Discontinued, Post-op 08 (Held - Provider: Malik De La Garza RN - Reason: Order parameters not met)2110 (Not Given - Provider: Peace Sol RN - Reason: Patient/family refused) 42 (Not Given - Provider: Marion Sharma RN - Reason: Patient/family refused)2005 (Not Given - Provider: Gladis Lezama RN - Reason: Patient/family refused) 0845 (Not Given - Provider: Nevaeh Oviedo RN - Reason: Other - Comment: loose stools)2100 (Due) sodium chloride flush 0.9 % injection [...] RN)2111 (Given - Provider: Peace Sol RN) 0949 (Given - Provider: Marion Sharma, ALFONSO)2019 (Given - Provider: Gladis Lezama RN) 0857 (Not Given - Provider: Nevaeh Oviedo RN - Reason: Loss of IV access)2100 [...] from all sources in 24 hours., Post-op 08 (Given - Provider: Malik De La [...] mg, IntraMUSCular, PRN, Starting on Thu02/11/22 at 2002, Until Discontinued, Low blood sugar, Blood glucose less than 70 mg/dL and patient NOT ALERT or NPO and does not have IV access., After administration, attempt intravenous access and start D5W at 100 mL/hr. Repeat blood glucose in 15 minutes x2 and notify provider. glucose chewable tablet 16 g 16 g (4 tablet), Oral, PRN, Starting on Thu02/11/22 at 2049, Until Discontinued, Low blood sugar, If blood [...] Peace Sol RN)1346 (Given - Provider: Marion Sharma RN)2004 (Given - Provider: Gladis Lezama RN) 0531 (Given - Provider: Gladis Lezama RN)1145 (Given - Provider: Nevaeh Oviedo RN) oxyCODONE-acetaminophen (PERCOCET) 5-325 MG per tablet [...] De La Garza RN)1541 (Given - Provider: Mailk De La Garza RN) 0518 (See Alternative - Provider: Peace oSl RN)1346 (See Alternative - Provider: Marion Sharma RN)2004 (See Alternative - Provider: Gladis Lezama RN) [...] First dose on Thu02/08/22 at 0600, Until Discontinued
Do Not Crush [...] mg from all sources in 24 hours.
Goals (unrecognized section and content) Goals may be documented in a n alternate section FOR RECORDS PERTAINING TO PATIENTS WHO ARE [...] BE BASED ON THE PRIMARY CLINICAL RECORDS. [employer] provides no warranty or guarantee of the accuracy or completeness of information in this document.
[2024-04-23] MEDS: 0.9 % SODIUM CHLORIDE 1,000 ML 500 ML IV ×2 (12:11→18:26)
[2024-04-23 12:18] LABS: Basophils Percent Auto 0.2 % (0.2-2.0); Eosinophils Absolute Auto 0.1 10^3/uL (0.0-0.7); Eosinophils Percent Auto 0.3 % (0.9-7.0); Hematocrit 36.3 % (42.0-54.0); Hemoglobin 11.1 g/dL (14.0-18.0); Immature Granulocytes Abs Auto 0.16 10^3/uL (0.00-0.03); Lymphocytes Absolute Auto 2.4 10^3/uL (1.2-3.8); Lymphocytes Percent Auto 15.3 % (20.5-60.0); Mean Corpuscular HGB Conc 30.6 g/dL (29.9-35.2); Mean Corpuscular Hemoglobin 28.4 pg (25.9-34.0); Mean Corpuscular Volume 92.8 fL (80.0-94.0); Mean Platelet Volume 12.5 fL (9.5-13.5); Monocytes Absolute Auto 0.1 10^3/uL (0.3-0.8); Monocytes Percent Auto 0.7 % (1.7-12.0); Neutrophils Percent Auto 82.5 % (43.0-75.0); Platelet Count 318 10^3/uL (150-450); Red Blood Count 3.91 10^6/uL (4.70-6.10); Red Cell Distribution Width 14.5 % (11.0-15.0); White Blood Count 15.8 10^3/uL (4.0-11.0)
[2024-04-23 12:22] LABS: Internal Control Within Normal Limits; SARS-CoV-2 Ag NEGATIVE (NEGATIVE)
[2024-04-23 12:40] LABS: Alanine Aminotransferase 9 U/L (16-63); Albumin Globulin Ratio 0.6; Albumin Level 2.6 g/dL (3.4-5.0); Alkaline Phosphatase 119 U/L (46-116); Anion Gap 17.5; Aspartate Amino Transferase 15 U/L (15-37); BUN Creatinine Ratio 32.4; Bilirubin Total 0.8 mg/dL (0.2-1.0); Calcium 8.8 mg/dL (8.5-10.1); Carbon Dioxide 23.3 mmol/L (21.0-32.0); Chloride 108 mmol/L (98-107); Estimated GFR (African America 59 (>=60); Estimated GFR (Non-African Ame 49 (>=60); Globulin 4.6 g/dL; Glucose 131 mg/dL (74-106); Potassium 3.8 mmol/L (3.5-5.1); Sodium 145 mmol/L (136-145); Total Protein 7.2 g/dL (6.4-8.2); Troponin I High Sensitivity 8.3 pg/mL (4.0-76.1)
[2024-04-23 13:04] LABS: INR 1.09; Prothrombin Time 11.5 sec (9.0-11.6)
[2024-04-23 13:22] LABS: D Dimer 1.33 mg/L FEU (<=0.59)
[2024-04-23] MEDS: PIPERACILLIN SODIUM/TAZOBACTAM 4.5 GM in 0.9 % SODIUM CHLORIDE 50 ML IV (13:23)
[2024-04-23] MEDS: 0.9 % SODIUM CHLORIDE 1,000 ML 1000 ML IV (13:23)
--- NOTE | 2024-04-23 13:24 | CT_ITS ---
[address] [address] Patient Name: ALISIA CORREA MRN: [id number] date: 1960 Sex: M Assigned Patient Location: ER Current Patient Location: ER Accession/Order Number: [id number] Exam Date: 04/23/2024 14:10 Report Date: 04/23/2024 15:16 At the request of: MERCEDEZ CRAMER Procedure: CT angio chest EXAM: CT angio chest HISTORY: PE protocol /elevated ddimer hypoxemia COMPARISON: 07/25/2021 Chest radiograph 01/20/2023 TECHNIQUE: CT angiography of the pulmonary arteries following the administration of intravenous contrast. Coronal and sagittal MIP (maximum intensity projection) images were performed. Dose reduction techniques were achieved by using automated exposure control and/or adjustment of mA and/or kV according to patient size and/or use of iterative reconstruction technique. FINDINGS: The study is technically adequate for the diagnosis of pulmonary embolism, with good contrast bolus to the pulmonary arteries. TUBES AND IMPLANTS: Cervicothoracic hardware. Spinal electrodes. CHEST WALL AND LOWER NECK: Unremarkable. BONES: No suspicious lesions are multilevel degenerative changes of the spine. UPPER ABDOMEN: No acute findings. Postsurgical changes of gastric bypass surgery. MEDIASTINUM AND NATHALY: Unremarkable. AORTA: No aneurysm or dissection PULMONARY ARTERIES: No embolism HEART: Not enlarged CORONARY ARTERIES: Mild coronary artery calcifications. LUNG AND AIRWAYS: Bandlike opacities are seen in the left upper lobe and left lower lobe more suggestive of atelectasis than pneumonia. PLEURA: Unremarkable. There is elevation of the left hemidiaphragm. CT/CT angio chest IMPRESSION: 1. No evidence for pulmonary embolism. 2. Bandlike opacities are seen in the left upper lobe and left lower lobe suggestive of atelectasis than pneumonia at this time. 3. Elevation of the left hemidiaphragm. Electronically authenticated by: PAULIE HUGHES Date: 04/23/2024 15:16
[2024-04-23 13:36] LABS: Bilirubin Urine NEGATIVE (NEGATIVE); Blood Urine SMALL (NEGATIVE); Clarity Urine CLOUDY (CLEAR); Color Urine YELLOW (YELLOW); Glucose Urine UA NEGATIVE (NEGATIVE); Ketones Urine NEGATIVE (NEGATIVE); Leukocyte Esterase Urine MODERATE (NEGATIVE); Nitrite Urine POSITIVE (NEGATIVE); Protein Urine 100 mg/dL (NEG/TRACE); Urobilinogen Urine 0.2 EU/dL (0.2-1.0); pH Urine 7.5 (5.0-9.0)
[2024-04-23 13:39] LABS: Urine Microscopic Indicated YES
[2024-04-23 13:53] LABS: Bacteria Urine MODERATE #/HPF (NONE SEEN); Mucus Urine TRACE (NONE SEEN); WBC Urine 20-50 #/HPF (NONE SEEN)
[2024-04-23 13:54] LABS: Cast Seen? NONE SEEN #/LPF (NONE SEEN); Crystals Seen? None Seen #/HPF (None Seen); Squamous Epithelial Cell Urine FEW #/LPF (NONE/RARE); Urine Culture Indicated YES
[2024-04-23 15:26] LABS: Lactate/Lactic Acid 1.5 mmol/L (0.4-2.0)
[2024-04-23 16:43] LABS: ABG PCO2 35.7 mmHg (35.0-45.0); Base Excess ABG -6.3 mmol/L (-2.0-2.0); HCO3 ABG 19.4 mmol/L (22.0-26.0); pH ABG 7.344 (7.350-7.450)
[2024-04-23 16:44] LABS: Allen Test POSITIVE (POSITIVE); Liters per Minute 15; O2 Mode NRBM; Oxygen Saturation ABG >100.0 %; Puncture Site RR
[2024-04-23] MEDS: OXYCODONE HCL/ACETAMINOPHEN 5MG/325MG 1 TAB PO (16:51)
[2024-04-23 18:50] LABS: Glucometer 74 mg/dL (74-106)
[2024-04-23] MEDS: DEXTROSE 50 %-WATER 25 GM/50 ML SYRINGE IV (19:25)
[2024-04-23 19:31] LABS: Glucometer 154 mg/dL (74-106)
--- OUTSIDE RECORDS SUMMARY | 2024-04-23 20:38 | XMS_ITS | CCD ---
Author Organization [facility] Care Team Providers Care Head Of Marketing Adometry Name Role Phone RICCHETTI, SERGEY T Unavailable Unavailable RICCHETTI, SERGEY T Unavailable Unavailable RICCHETTI, SERGEY T Unavailable Unavailable RICCHETTI, SERGEY T Unavailable Unavailable REAGAN BLAIR Unavailable Unavailable SWATI SENIOR Unavailable Unavailable SWATI SENIOR Unavailable Unavailable LUISITO RIVERA Unavailable Unavailable UNKNOWN, [...] Unavailable AKSHAT, SELVON F Attending Unavailable ELLEN RCABTREE Primary Care Unavailable EVELINA PARRA A Consulting Unavailable RANDA, SASIKALA T Consulting UnavailBALA Brito Consulting Unavailable TUCKER ROBBINS Consulting Unavailable AKSHAT, SELVON F Referring Unavailable ELLEN CRABTREE Primary Care Unavailable AKSHAT, SELVON F Referring Unavailable ELLEN CRABTREE Primary Care Unavailable Ellen Crabtree Unavailable Yifan Gama Unavailable Ellen Crabtree Primary Care Provider [phone] ELLEN CRABTREE Primary Care Unavailable KANG LOYA Admitting Unavailable PB REDMOND Attending Unavailable KANG LOYA Admitting Unavailable MELINDA NICK Attending Unavailable OUMOU ALONZO Referring Unavailable KUNS, ELLEN MCCOY Primary Care Unavailable ELLEN CRABTREE Primary Care Physician [phone] MIS, DR MYERS Consulting Unavailable MISC, DR MYERS Admitting Unavailable KUNS, DR HUGHES Primary Care Unavailable MISC, DR MYERS Attending Unavailable TREVOR, DR DON Hinkle Consulting Unavailable LEYDA ., MICHELL Attending Unavailable LEYDA ., MICHELL Consulting Unavailable LEYDA ., MICHELL Admitting Unavailable KUNS, DR HUGHES Primary Care Unavailable CHE PANDYA Consulting Unavailable IBARRA ., DR PARRA Admitting Unavailable KUNS, DR HUHGES Primary Care Unavailable IBARRA ., DR PARRA Attending Unavailable IBARRA ., DR PARRA Consulting Unavailable NEWATIA, SHARRON Consulting Unavailable IBARRA ., DR PARRA Admitting Unavailable KUNS, DR HUGHES Primary Care Unavailable IBARRA ., DR PARRA Attending Unavailable IBARRA ., DR PARRA Consulting Unavailable TRES, MOIZ Consulting Unavailable ELLI II, WICHO Consulting Unavailable HOY ., DR DANG Attending Unavailable HOY ., DR DANG Consulting Unavailable HOY ., DR DANG Admitting Unavailable KUNS, DR HUGHES Primary Care Unavailable ATLANTA, DR LIZETH Momin Consulting Unavailable NADERER, DR KARLEY Crowe Consulting Unavailable CHRISTIAN, EN Consulting Unavailable DIAB ., MERCEDEZ Consulting Unavailable Kuns DOEllen Primary Care Provider Kuns, DO Ellen Primary Care Provider [phone] Ly, DO Bernice Cox Attending Provider [phone] Bernice Shrestha Attending Unavailable Bernice Shrestha Admitting Unavailable Kuns, Ellen Primary Care Unavailable HEIDY MARIN Attending Unavailable KUNS, ELLEN R Referring Unavailable [...] IBARRA Admitting Unavailable Fidel IBARRA Attending Unavailable IBARRA, Fidel R Attending Unavailable [...] Attending Unavailable IBARRA, Fidel R Attending Unavailable RODRI, LYN Crum Attending Unavailable IBARRA, Fidel R Attending Unavailable IBARRA, Fidel R Attending Unavailable Orzech, Pippa X Attending Unavailable IBARRA, Fidel R Admitting Unavailable IBARRA, Fidel R Attending Unavailable Allergies Allergy Classification Reported Allergen(s) Allergy Type Date of Onset Reaction(s) Facility (20 sources) celecoxib; Translations: [CELECOXIB] Drug Allergy 06-04-20 17 Rash, Hives, GI Upset, Weal (disorder) [facility] Repository (20 sources) clonazePAM; Translations: [CLONAZEPAM] Drug Allergy 06-04-20 17 Itching, Shortness Of Breath, Dyspnea (finding) [facility] Repository (20 sources) levoFLOXacin; Translations: [LEVOFLOXACIN] Drug Allergy 01-30-20 10 Hives, Shortness Of Breath, Dyspnea (finding) [facility] Repository (9 sources) moxifloxacin; Translations: [MOXIFLOXACIN HCL] Drug Allergy 07-20-20 06 Rash, Hives, Itching, Shortness of Breath [facility] Repository (20 sources) ERYTHROMYCIN BASE; Translations: [ERYTHROMYCIN BASE] Propensity to adverse reactions to drug (disorder) 03-06-20 04 Hives, Shortness of Breath [facility] Repository (3 sources) celecoxib; Translations: [CeleBREX] Drug Allergy 06-25-20 12 [facility] Repository (1 source) erythromycin Drug Allergy 06-25-20 12 [facility] Repository (20 sources) levoFLOXacin Drug Allergy 06-25-20 12 Unknown [facility] Repository (3 sources) moxifloxacin; Translations: [Avelox] Drug Allergy 06-25-20 12 [facility] Repository (5 sources) celecoxib; Translations: [CeleBREX CAPS] Drug Allergy [place] [address] DO Work Phone: (5 sources) clonazePAM; Translations: [KlonoPIN TABS] Drug Allergy [place] [address] DO Work Phone: (5 sources) levoFLOXacin; Translations: [Levaquin] Drug Allergy [place] [address] DO Work Phone: (20 sources) moxifloxacin; Translations: [Avelox] Drug Allergy 07-19-20 06 Hives, Shortness Of Breath, Dyspnea (finding), Eruption of skin (disorder), Itching (finding), Urticaria (disorder), Weal (disorder), Itching, Rash [facility] (5 sources) Erythromycin Derivatives; Translations: [Erythromycin Derivatives] Allergy to drug (finding) [place] [address] DO Work Phone: (2 sources) celecoxib; Translations: [Celebrex] Drug Allergy [place] (3 sources) clonazePAM; Translations: [Klonopin] Drug Allergy [facility] Repository (20 sources) Erythromycin; Translations: [erythromycin] Drug Allergy 01-18-20 21 Itching, Nausea And Vomiting, Nausea (finding) [facility] Other (2 sources) levoFLOXacin; Translations: [Levaquin] Drug Allergy Aha[place] (2 sources) moxifloxacin; Translations: [Avelox] Drug Allergy [place] (12 sources) pimavanserin; Translations: [PIMAVANSERIN] Drug Allergy 08-23-20 20 [facility] (6 sources) moxifloxacin; Translations: [moxifloxacin] Drug Allergy 07-19-20 06 Unknown Reaction, [facility] Medications Current Medications Medication Drug Class(es) Dates [...] Central Nervous System Stimulant, Methylxanthine Start: 02-20-20 take 2 tablets by mouth every six [...] # 30 tab(s), Refills(s) 0, Pharmacy: [facility], 175, cm, 01/16/23 10:13:00 EDT, Height/Length Dosing, 92, kg, 01/16/23 10:13:00 EDT, Weight Dosing Start Date: 01/20/23 Status: Ordered atorvastatin 10 mg oral tablet (20 sources) HMG-CoA Reductase Inhibitor Start: 09-17-20 End: 01-06-20 atorvastatin 10 mg Tab Refills(s) 0 Start Date: 01/16/23 Status: Ordered Comment on above: Take 10 mg by mouth once daily. benzonatate 100 mg oral capsule (20 sources) Non-narcotic Antitussive Start: 12-06-19 End: 04-19-20 benzonatate 100 mg Cap Refills(s) 0 Start Date: 01/16/23 Status: Ordered Comment on above: Take 1 capsule by [facility] three times daily as needed for [...] mg per CR tablet Indications: Parkinson's disease ([facility]) TAKE 1 TABLET BY MOUTH AT 2AM, 2 TABLETS AT 6AM AND 10AM, 1 TABLET AT 2PM, 6PM, AND 10PM. TAKE WITH SINEMET IR. 240 tablet 11 08/07/2023 Active Start: 01-16-2023 End: 01-06-2024 carbidopa-levodopa 25 mg-100 mg ER Tab Refill(s) 0 Start Date: 01/16/23 Status: Ordered Start: 11-04-2022 take 2 tablets by mo [facility] once in the morning, then take 2 [...] 25-100 mg per tablet Indications: Parkinson's disease ([facility]) TAKE 2 TABLETS BY MOUTH AT 6AM [...] per tablet Indications: PD (Parkinson's disease) ([facility]) Take 1.5 tablets by mouth four times [...] four times daily. Take 2 tablets by [facility] at 6 am, 2 tablets at 10 am, and 1 tablet at 2 pm, 6 pm, 10 pm and 2 am. cefdinir 300 mg oral capsule (11 sources) Cephalosporin Antibacterial Start: 02-23-2024 End: 03-04-2024 take 1 capsule by mouth every twelve hours cefdinir 300 mg Cap 300 mg = 1 cap(s), Oral, q12hr, X 10 day(s), # 20 cap(s), Refills(s) 0, Pharmacy: [facility], 175, cm, 03/20/23 9:07:00 EDT, Height/Length Dosing, 92, kg, 03/20/23 9:07:00 EDT, Weight Dosing Start Date: 02/23/24 Stop Date: 03/04/24 Status: Ordered Start: 06-11-2023 End: 06-21-2023 take 1 capsule by mouth every twelve hours cefdinir 300 mg Cap 300 mg = 1 cap(s), Oral, q12hr, X 10 day(s), # 20 cap(s), Refills(s) 0, Pharmacy: [facility], 175, cm, 03/20/23 9:07:00 EDT, Height/Length Dosing, 92, kg, 03/20/23 9:07:00 EDT, Weight Dosing Start Date: 06/11/23 Stop Date: 06/21/23 Status: Ordered take 1 capsule by [facility] every twelve hours Cefdinir 300 MG [...] 0, Pharmacy: [facility], 175, cm, 03/20/23 9:07:00 EDT, Height/Length Dosing, 92, kg, 03/20/23 9:07:00 EDT, Weight Dosing Start Date: 05/25/23 Stop Date: 06/04/23 Status: Ordered DULoxetine 60 mg delayed release oral capsule (20 sources) Serotonin and Norepinephrine Reuptake Inhibitor Start: 04-28-20 End: 01-06-20 duloxetine 60 mg oral delayed release capsule Refills(s) 0 Start Date: 01/16/23 Status: Ordered take 1 capsule by mouth twice da giuliano Cymbalta 20 mg capsule,delayed release take 1 capsule (20 mg) by oral route 2 times per day unsure of dose Comment on above: Take 1 capsule by [facility] once daily. 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 fluticasone propionate 0.05 mg/actuat metered [...] End: 01-06-2024 Midodrine Discontinued 10 MG PO March 23, 2023 2:15pm January 06, 2024 4:09pm [...] Start: 12-06-2022 take 3 tablets by mo [facility] once daily midodrine (PROAMITINE) 5 mg tablet [...] mg Active take 3 tablets by mo [facility] every twelve hours Midodrine HCl 5 MG 3 tablet Orally BID 15 mg Active midodrine 2.5 mg tablet unsure of dose Comment on above: Take 5 mg by mouth t wice daily. Take 3 tablets by mo [facility] once daily. Take at 7:00am Take 1 [...] 0, Pharmacy: [facility], 175, cm, 03/20/23 9:07:00 EDT, Height/Length [...] 06/23/2007 11/20/2022 Discontinued take 1 tablet by brendan th three times daily Potassium Citrate ER 15 [...] Start: 11-19-2021 take 1 capsule by mo [facility] once daily topiramate oral capsule,ashia,ER 24hr 100 mg 11/19/2021 take 1 capsule [...] Comment on above: [facility] traMADol hydrochloride 50 [...] Start: 09-02-2023 take 1 tablet by brendan every twelve hours traMADol HCl 50 MG [...] of major depressive disorder without prior episode ([facility]) Take 1 capsule (75 mg total) by [...] Oxycodone-Acetamino phen Discontinued 1 TAB PO Q6H 07 03March 07, 2022 March 23, 2023 1:58pm Start: [...] Comment on above: Take 1 tablet by [facility] twice daily. Balsam Keesha-Jasper Oil (3 sources) Start: 03-07-20 End: 03-23-20 Balsam Keesha-Jasper Oil Discontinued 1 APPLIC TOPICAL Three times [...] Start: 02-07-2022 take 10 mg rectal ro tonawanda once daily as needed 10 mg, Rectal, [...] Comment on above: Take 1 capsule by [facility] twice daily. docusate sodium 50 mg / sennosides, longterm 8.6 mg oral tablet (1 source) Start: [...] Toradol per 15 mg Jan, 2ml Lanolin [id number]-K.Pet-[place] (Minerin Creme) Cream (3 sources) Start: 04-19-2023 End: 01-06-2024 Lanolin Gndskln-Hf-F.Pet-[place] (Minerin Creme) Cream Discontinued 1 APPLIC TOPICAL [...] mcg Capsule Discontinued 145 MCG PO Daily 30 March 07, 2022 9:01am March 23, 2023 [...] MG PO Twice daily with meals 60 March 07, 2022 12:00am March 23, 2023 [...] once daily. Multivitamin preparation (3 sources) Start: End: 3 take 1 tablet by mouth [...] Not-Taking Start: 08-15-2013 take 1 capsule by [facility] once daily Multivitamins DX: 285.9 1 [...] 2023 12:00am January 06, 2024 4:09pm Nystatin 133931 UNIT/GM 1 application Externally Twice a day Active [place]-3 Fatty Acids (3 sources) Start: 02-18-2022 End: 03-23-2023 take 1000 mg by mouth once daily in the morning Austin-3 Fatty Acids Discontinued 1000 MG PO Every [...] (5 sources) Opioid Agonist Start: 3 End: take 5 mg by mouth every four [...] by mouth daily at bedtime. 30 capsule 07/03/2020 08/23/2020 Discontinued (Other) Comment on above: Take 1 capsule by mo [facility] daily at bedtime. polyethylene glycol 3350 14420 mg powder for oral solution (20 sources) [...] 1 tablet by brendan th every evening. raNITIdine 150 mg oral tablet [...] a day for 90 days Active sennosides, longterm 8.6 mg oral tablet (2 sources) Start: [...] subq twice a week; Note: Source Status: Not-Taking\BGF84ap vial; Refills: 0; Qty: 10 ml; Provider: [...] above: Take 1 tablet by brendan every 8 hours as needed. 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 [id number]+PG hlYWQ +[id number] TElOSywgQVBQTElOSyIgbmFtZ E8idZOmWVHu IC8+TW0jCADhIhavvOIyp4P7b XD1X91lzo9fWGvhbGN0HNMcEd Aajdamb9kauSx8QWxcRjnoXhZ t JOCdlG39WFT3sM99Qx22nRZfd ORil5ulwTn0JiWkSJLeFXJ9dI gpUSyma7HhZNFkN93xkAQwq0C 6 GCXjzNgqyXCoRtYnxHL2aL2cW Ryxmsxhg7yizkaaYfj8xm71qP Ezk0I0iLB5G5JuxtB5HLCauNB g IzhqpVHMeW9izrvot0kaupvvN eRtFLPxUVb8VOi0SAVqpUghYt SvUS97IJZ6SPEzesLzW7NuFJW s zDasElB9k6T0Gp4AB5HMAmixU 1VNTUFSWTwvdGQ+HT78zf55V2 WhJkvtXhy8MXDzUZU2cRZ0xH1 n XYKuPVrtv3D7vWC3Y2DeygCyf r2jv5ycNYWtPAinW58sdWHrp3 Y0EQZfdAG2EQWmvQkyFiYhvC3 3 Oyc+WPBanBodq7TeMmhev2yzs 2ifxSf1JvxwQERbuhBioYwcJC Q6f6SkBj2bHMEmbBD4vPZ1qX7 i WoPeAhK1ADorB880KaLhpARwL roeU23cD8EckRZ+VJYwBfk2WG HofVttHZ4nW7FaDYEfuzzcdON m uZoxNS5nXRFrinemMJDygT2oP RClF0c8IkFaRhI7XPiqD8KeQN LwatrfKs21nI7xWbOjSmG6UZn u I9QnayR0GZRvhUDpBYrlANS9B 21ut4P0BOVtWJTyREI8mYZ3lM 1hbGlnbjogbGVmdDsgdmVydGl j IFzjITwcL505RZBlcJveYtDgR GluZyBEYXRlOiAgMDYvMjYvMj AyNDwvdGQ+DTYeOWX6cRokSSB n hEAkKZmfGg3oiOpldXpkYS2gF JXwfufnOENdjL7hSODjpVJbyJ szFN6aKBLjquide380KfUbRXH 0 SJMhsQOwH0QhzT9fSjLiPCXfH NHkV2TrkVEcNWhaJ874XWznDr L5HVZfxgLnU1UvGXZtuGdgChV 0 u1C3Lc9Qi5YhsgcmZ9BguIOrF dUiIrhpDAs1G3RmJimyhWD+PC 10BMMfZT35WUu4LJS0uVsjECu i NGHqS1JfgE6nIkSvYOBjDJMpP yc+PHRhYmxlIHdpZHRoPScxMD VaKfDltTykAW3eMw6hQUVrDGB v hTmpoBNlVpBst3qjHQAjTAmkK W7hbVrlB9VztBC9AYViz8l4Om 12Q01kM6GwpCH+DIGmnLV8iTQ 0 nX5sXcQfFmM4VEpcI998XqSok OFjSfcxu1ysc1tnjJp9MuL7DN WyxfKulCjwMCT4h3HgMz23V14 s IHdpZHRoPSIxNSUiIHZhbGlnb f3bkN5iRv2+UEZrgRC6eYS6xF 2gBrWwAcH7GJlyF256BmAirIE v Huaub8nzn7lmhRn5WeOgGLOnd bOyuRjrDZH6k7LkAh71M4LfuA yfc9QuTmq8me89uONya6H3fDD 9 Z3VxRIZgdikrkLHahDvaWZ8cS ALwkgetZRLwbO5fVMAeA9d0Sr UtCeV2ZQtvY4YnugB6RCPguEE g PSTdfUOFjV2ksooet7hxwgdwU zAuZWVwAAq5EUe6PAUaxOlcLq DeBDD3CnN0ZOQ1kUYblF9xvPn n lddfmG3zGwj+IHC3sVXsuPRAT U1aQumtsAJ+EVGyFTB9rNvnYK xjYAGkzI1tNMFwE3m6ErYpWhA 1 GEigN1GdhgN0FZZoaHSlPXBdy TQBqW2kxvwde0ecyyfdXeGzUG LzPWl2HJy6NPSpsOjiTqKzTNT 0 NgC8ZNC4hGIfxA9naOciibnmf G9wOyc+GeiaeKtyVYA7HQi0C0 EkZel7SUYtgTduMK9njTNpQEj u Hp3mjIjqzMfhEN7zLLJewvfbl 675DdCre5uzCKFscUOiGWnxXP Y3S80af6M4WZAoBWByGKM2hUI 4 yB8tgGkmpzdpgBGciWxsksJtk WaaVXteFJdcW716XEDzkHiuYj WzXZq3C2UuKhc9ELApjNnaZL4 n dIRaXDzpKx9daAzyiVlsLI7hP BEzeyrmk858TkRbd0tfXBXykH EjXUpsSPY4L28fn7H4LZTbDGN w TXV4gJG5pW3zjYryiwmrpJKvv AndjyDgcCwcXMcbXNwpN425JC OhkVlxSkQcgCz1T6CgQuo6VPL z mGstKK8vvGYvIQbnYw1heCnrc UzdTM1sJKVlkygrz688DpWxr9 ufICIqxDMbOQzfIDV9R41pg1N 6 GUHtWVAmAXT0mBT4jD5ydOrtt jogbGVmdDsgdmVydGljYWwtYW fgG032DMYnsEcdGtZtvMfkttX g AHeuRBp6D1RnZwoexNW+PC90Y GHcPS71xRIeaEDao9pcsIn1Mq RaPZQeBTV8nAspVXzdm5EjFCE t N69wwKNpw5U6NCRgeZsegPIyP pQeeQK7dB1sAIacipvgc8nrsv dePsoys6wroq23wJ30B89yPUj p EJMwAHTwYYLxFOEapIrrmg2mq G9wIi8+XJTxuVV2dCB4wR2iLF KtSdO4BOypD501NeOovNYtDth j j6hhu7eywDw1FqF6VAOnuyWbx ZyjUMO5m6NzCy14M43zEIcgGS CuAEUuHYKgGSXroAhhio1bcO6 w Ii8+RPMivYT0aQB0zW0qUbMrD yV8GHzkB111JeZrnCQvDyglR3 7mK3WzfPQ+USWjCbp6CHAxzEb s XH0ynONcLYrqUt9gMJT7VoSaA xPtVBirE6PuPUJvslbrcrmqlL L8GICxTAGnnP72Va5ziMdzQOQ w pPRWlK3zvhclt8rzexvgVyZxS DIhFAf2DSx9AKRejSfbJnYlNN C3SlG4ZWQ6hQWsxL8tqPtkrew g aM1wL7GsZJGgpivyDu19wT9aR pApVuE7HKokDwk+E4NHMHYsCP NIQVJMRVMgTDwvdGQ+PHRkIHN 0 yRhoIQuoNMXwlC9eYHFoI2m3X aOyUdM9MMazD0XkZXYvoecdLf 23kG5yMtNzUpS3GBqeY2OtgeA 6 TEOumARvVNcsSUV4F68lp2E0E PBtQMUcTJI8zYF1dG3zqPdgaj ogbGVmdDsgdmVydGljYWwtYWx p Q762ZAZtwVroOzUuKqO1HpC1N Jj6V8JtNab3OCSvqNqmLG4dsQ XdROhpTs0fnKvapFgjSH9gLAB p ipyyUJTpqF6iHQNjwUCqiVxlE K8wWZLxwmwnv119OgQzBSN4YY YqqJMqY0OxsF7pLkOfIADvTKB w W1KxvDQbSJepG148HZhuCuT1X BZjnkNzX8YxVECriRjuIdW9f4 W3By37IZIYMJXhtjixiDH+PHR k EVS8aTgyHDuzSCQipT4cVDDvK 1p7CwPbZhR5TQzjL1GrSVKxbg umWz26zK6oWqVuFvU0QMfmG3C v jjO4CJXgqCAaZArjEUO7E62vm 7H3ISKpRYHjUNA6qEV9aX9xiN lnbjogbGVmdDsgdmVydGljYWw t VFojG902OOYuqKjhWw1uxKL3E 8YmYra4TGEjuQsgIW5dcZEsHA qzGw1xsQrtvHrzRV4cPOSaifn w TJHgsJ0uHVYltTPcmQsaDQ3kO FYtcnqci968VpCcIKI5ANOfuB PiH8SqrM0qCvNuEQJcEAOeY2W l kOZpBSuhN164WNsmRrL3ELPle hNgP3QyLUMzsAlsZjM9e1B6Mx 9OHWRsTMVupNLsZxN5P0HeEwu v dHI+YQ47ALBjTG22cKKutNVrw 5otkFo2CsDgPHIfTJH6wEfdKN srg4GfVSEgX16bxWRil6Z0PPJ v eQxjqLIvDeKdrDP2lP4xTRtqe qphs8zkswkyGrcal9whyv03qC 94O99xLFcxRNRkILPaULGvUNE h nWnnmd9ypX9nPq2+HIKmiKA6l FP3xH9jKbHxCmS8QKxdT165Dh QrmFUwBwuwx7dgc6cbwQy6YlE w BSKfbbWajAnvPXC3b7UmIt15P 29sIHdpZHRoPSIyMCUiIHZhbG lhts6yxE7cVd8+WU9xe2flik9 1 gG99hHH+YKScWCA8nXtzVVhaH VKfcO6hJMmvUuL8LJQjRnQzyG 14uFNlJOyyTd3vgNngkTrvUY0 w OTRhqbkyu420LsGxa4oqWBCof SJbNNtvAFY8N78ku6N4QVNgYV ZcTGN0qHR4uB3ukGhxrvvtzHU m vBegafZlrKqsFGsfKObvW123L NFqqTptXbOvyAVnE8umvsDLMY 1lOjwvdGQ+UWXqFSJ7qSabMGe w DZDspD6zWDRjV5x6JmZvUjM7C VtwX4PyzuG6CRBrjZIlIVNdwL NSzB2ewfwdc2bvgdabJlNuBWK w LKt5JIr6BHHdsOkpOgXhOLL1I fY0SXQ8mKEapQ4saTopqijytT 9wOyc+RklOOjwvdGQ+PHRkIHN 0 bNbcCYjwQVCoaB5tDLCuB5q0V tTvEbC9NCilG7OyhjV7KJVkwP OsFPKycIUGbO1sdmgln5krsrv g RbUyYYLiYCd2MWu4YLFxmZalB mOwZEI2LsO6NGT5uVUwfI8pdT zfnzithD4mZjl+TVJOOjwvdGQ + UNCnDSO1jCvdWOloEJRlhL9vJ ZUkR8n6KpJcEeR3MJkcF0Woec Y5GYVjiZGlODOumZQVyG4hrhw j p9lzgebyHuGuFRJqMJd3QHm9I LHtzHohPbUfHWD7SkC9LOJ9yX XgcW1hkKwphtekfX6bYtf+UGF 5 KHT9KP57LK72T4EnJfcntLPpo +PHRhYmxlIHdpZHRoPScxMD FaWuAxrCmoKS5cXt8tYXQzVVO v bGxhcHNlOiBjb (more content not included)... [facility] Patient Letter FTon 2023 Patient [place] [facility]Inserted Image. Nette ble to display) April 11, 2024 [address]ISIA CORREA [address] [place] [address] [place] [address] : 1960 Dear Alisia Correa, We have been trying to reach you with no success. It is important that you return our call regarding your recent lab result upon receiving this letter. Also, at the time of your call, please provide us with your current information. Thank you for your prompt attention to this matter. Sincerely, [facility] [address] [place] [address] [facility] C Urineon 04-07-2024 Bacteria identified Cx Nom (U) Microbiology PROCEDURE: Urine Culture [R1] SOURCE: U Random BODY SITE: COLLECTED DATE/TIME: 04/05/2024 15:30 EDT RECEIVED DATE/TIME: 04/05/2024 18:24 EDT START DATE/TIME: 04/05/2024 18:24 EDT FREE TEXT SOURCE: TITI Duncan APRN, TITI Duncan APRN, Pippa Das X FINAL REPORTS Final Report [] Verified [...] Locations R1: This test was performed at: [facility], [address] [place] [address], [facility] , , [facility] Comment on above: Performed By: #### [id number] #### [facility] [address] [place] [address] RAD - MISCon 03-25-2024 RAD - MISC [id number] [facility] RAD - Ultrasound Reporton RAD - Ultrasound Report [id number] [facility] Patient Educationon 03-15-20 24 Patient Education Caregiving [...] Follow these instructions at home: ? Take ozuj-spc-bptjdct and prescription medicines as told by your [...] get worse. (more content not included)... [facility] Urology Office/Clinic Noteon 03-15-2024 Urology Office/Clinic Note [...] of cefdinir. Discussed with the patient starting hbob-efb-jfzbzck UTI prevention supplements including d-mannose, Cranberry and [...] Calculus of kidney) CT AP w/o contrast 03/02/23 2 punctate left-sided nephroliths. No hydro. [2] [...] Kidney Stones Antibiotic Medicine, Adult Kidney Stones, Lova-yv-Ffwm Benign Prostatic Hyperplasia Problem List/Past Medical History [...] hypofunction Urinary reten (more content not included)... [facility] Comment on above: Result Comment: Elec tronically Signed By: TITI Duncan APRN, [place] X\.br\Date and Time Signed: 03/15/24 13:28 EDT Provider Letteron 03-01-2024 Provider Letter (Inserted Image. Nette ble to display) March 01, 20[address] [place] [address] : 1960 Dear Alisia Correa, We have been trying to reach you with no success. It is important that you return our call regarding your lab results upon receiving this letter. Also, at the time of your call, please provide us with your current information. Thank you for your prompt attention to this matter. Sincerely, [facility] [address] [place] [address] [facility] C Urineon 02-25-2024 Bacteria identified Cx Nom (U) Microbiology PROCEDURE: Urine Culture [R1] SOURCE: U Cath BODY SITE: COLLECTED DATE/TIME: 02/23/2024 14:39 EDT RECEIVED DATE/TIME: 02/23/2024 19:26 EDT START DATE/TIME: 02/23/2024 19:26 EDT FREE TEXT SOURCE: carlin IBARRA MD, Fidel IBARRA MD, Fidel Hinkle [...] Locations R1: This test was performed at: [facility], [address] [place] [address], [id number] , , [facility] Comment on above: Performed By: #### [id number] #### [facility] [address] [place] [id number] Capillary blood glucose blayne urement by glucometer (mass/volume)Ordered By: Bernice Shrestha on 02-11-2024 Glucose [Mass/Vol] 70 mg/dL Normal [facility] Comment on above: Random Glucose Refer ence Range is dependent on time and content of last meal. Glucose of more than 200 mg/dL in a nonstressed, ambulatory subject supports the diagnosis of Diabetes Mellitus. Result Comment: [place] om Glucose Reference Range is dependent on time and content of last meal. Glucose of more than 200 mg/dL in a nonstressed, ambulatory subject supports the diagnosis of Diabetes Mellitus. PERFORMED BY: [facility] [address] [place] [address] PATHOLOGIST [employer] SIVAKUMAR PALACIOS M.D. Performed By: #### G LULS #### Point of Care testing , Oscar 02-11-2024 L Specimen: [id number] Received: 02/11/24 Status: FABIANO Wilkins Num: [id number] Spec Type: Surgical Subm Dr: Bernice Shrestha DO Tissues: A Colon Biopsy (RT RANDOM COLON) B Colon Biopsy (LT RANDOM COLON) Procedures: HE/4, Gross/Micro L4/2 Age/ Patient Sex Location Account Attending Physician Alisia Correa 63/M [id number] Bernice Shrestha DO SPEC NUM: [id number] RECD: 02/11/24 STATUS: FABIANO WLIKINS NUM: [id number] ASCENCION: 02/11/24- SUBM DR: Bernice Shrestha DO ENTERED: 02/11/[address] [facility] DR: SPEC TYPE: Surgical DEPT: S ORDERED: [...] 0.1 cm, entirely submitted in A1. Specimen: [id number] Received: 02/11/24 Status: FABIANO Wilkins Num: [id number] Spec Type: Surgical Subm Dr: Bernice Shrestha DO Tissues: A Colon Biopsy (RT RANDOM COLON) B Colon Biopsy (LT RANDOM COLON) Procedures: HE/Julio César, Gross/Micro L4/2 Patient: Alisia Correa SR [id number] (Continued) Specimen: [id number] Received: 02/11/24 (Continued) Gross Description (Continued) Signed (signature on file) Amanda Nicholas MD 02/13/24 1446 Specimen: [id number] Received: 02/11/24 Status: FABIANO Wilkins Num: [id number] Spec Type: Surgical Subm Dr: Bernice Shrestha DO Tissues: A Colon Biopsy (RT RANDOM COLON) B Colon Biopsy (LT RANDOM COLON) Procedures: /Julio César, Gross/Micro L4/2 Patient: Alisia Correa SR [id number] (Continued) Specimen: [id number] Received: 02/11/24 (Continued) Gross Description (Continued) B. Received in formalin, labeled with the patient's name and left colon biopsies are 3 austin mucosal tissue fragments ranging from 0.3 x 0.2 x 0.1 cm to 0.2 x 0.2 x 0.1 cm, entirely submitted in B1. Clinical history: Diarrhea, mucus in stool, fecal incontinence. Rule out microscopic colitis TW CPT Codes 79360 X2 Specimen: [id number] Received: 02/11/24 Status: FABIANO Wilkins Num: [id number] Spec Type: Surgical Subm Dr: Bernice Shrestha DO Tissues: A Colon Biopsy (RT RANDOM COLON) B Colon Biopsy (LT RANDOM COLON) Procedures: HE/Julio César, Gross/Micro L4/2 Patient: Alisia Correa SR [id number] (Continued) Signed (signature on file) Chin-Maury Nicholas, MD 02/13/24 1446 Normal [facility] Pre-Certification Formon Pre-Certification Form [id number]#1.00TIFF [facility] Ambulatory Visit Summaryon 0 01-11-2024 Ambulatory Visit [...] AM EDT Where: [facility] [place] [facility] Basophils Auto (Bld) [#/Vol] on 01-06-2024 Basophils (Bld) [#/Vol] 0.0 10 3/uL 0.0-0.1 [facility] Basophils/100 WBC Auto (Bld) on 01-06-2024 Basophils/100 WBC (Bld) 0.6 % 0.2-2.0 [facility] Eosinophils/100 WBC Auto (Bl d)on 01-06-2024 Eosinophils/100 WBC (Bld) 3.2 % 0.9-7.0 [facility] Erythrocyte distribution wid th Auto (RBC) [Ratio]on 01-06-2024 Erythrocyte distribution width (RBC) [Ratio] 14.6 % 11.0-15.0 [facility] Estimated glomerular filtrat ion rate (GFR) non- Americanon 01-06-2024 GFR/1.73 sq M.predicted among non-blacks MDRD (S/P/Bld) [Vol rate/Area] mL/min/{1.73_m2} >=60 [facility] Hematocrit Auto (Bld) [Volum e fraction]on 01-06-2024 Hematocrit (Bld) [Volume fraction] 40.9 % 42.0-54.0 [facility] Hemoglobin [Mass/volume] in Bloodon 01-06-2024 Hemoglobin (Bld) [Mass/Vol] 12.6 g/dL 14.0-18.0 [facility] Laboratory - Chemistry and C hemistry - challengeon 01-06-2024 Calcium [Mass/Vol] 8.5 mg/dL 8.5-10.1 [facility] Chloride [Moles/Vol] 106 mmol/L 98-107 [facility] CO2 [Moles/Vol] 24.7 mmol/L 21.0-32.0 [facility] Creatinine [Mass/Vol] 1.14 mg/dL 0.70-1.30 [facility] GFR/1.73 sq M.predicted MDRD (S/P/Bld) [Vol rate/Area] mL/min/{1.73_m2} >=60 [facility] Glucose [Mass/Vol] 70 mg/dL 74-106 [facility] Lactate [Moles/Vol] 1.4 mmol/L 0.4-2.0 [facility] Potassium [Moles/Vol] 3.6 mmol/L 3.5-5.1 [facility] Sodium [Moles/Vol] 140 mmol/L 136-145 [facility] Urea nitrogen [Mass/Vol] 25.0 mg/dL 7.0-18.0 [facility] Urea nitrogen/Creatinine [Mass ratio] 21.9 mg/mg [facility] Laboratory - Hematology and Cell countson 01-06-2024 Immature granulocytes/100 WBC (Bld) 0.4 % 0.0-0.5 [facility] Laboratory - Microbiology an d Antimicrobial susceptibilityOrdered By: Ellen Crabtree on 01-06-2024 Bacteria identified Cx Nom (U) [facility] Leukocytes [#/volume] correc jacqueline for nucleated erythrocytes in Blood by Automated counon 01-06-2024 WBC corrected for nucl RBC Auto (Bld) [#/Vol] 5.3 10 3/uL 4.0-11.0 [facility] Lymphocytes Auto (Bld) [#/Vo l]on 01-06-2024 Lymphocytes (Bld) [#/Vol] 2.2 10 3/uL 1.2-3.8 [facility] Lymphocytes/100 WBC Auto (Bl d)on 01-06-2024 Lymphocytes/100 WBC (Bld) 41.9 % 20.5-60.0 [facility] MCH Auto (RBC) [Entitic mass ]on 01-06-2024 MCH (RBC) [Entitic mass] 28.5 pg 25.9-34.0 [facility] MCHC Auto (RBC) [Mass/Vol]on 01-06-2024 MCHC (RBC) [Mass/Vol] 30.8 g/dL 29.9-35.2 [facility] MCV Auto (RBC) [Entitic vol] on 01-06-2024 MCV (RBC) [Entitic vol] 92.5 fL 80.0-94.0 [facility] Monocytes Auto (Bld) [#/Vol] on 01-06-2024 Monocytes (Bld) [#/Vol] 0.6 10 3/uL 0.3-0.8 [facility] Monocytes/100 WBC Auto (Bld) on 01-06-2024 Monocytes/100 WBC (Bld) 12.0 % 1.7-12.0 [facility] Neutrophils Auto (Bld) [#/Vo l]on 01-06-2024 Neutrophils (Bld) [#/Vol] 2.2 10 3/uL 1.4-6.5 [facility] Neutrophils/100 WBC Auto (Bl d)on 01-06-2024 Neutrophils/100 WBC (Bld) 41.9 % 43.0-75.0 [facility] No Panel Informationon 01-05 Eosinophils # (Auto) 0.2 10 3/uL 0.0-0.7 [facility] Immature Granulocyte # (Auto) 0.02 10 3/uL 0.00-0.03 [facility] Platelet mean volume Auto (B ld) [Entitic vol]on 01-06-2024 Platelet mean volume (Bld) [Entitic vol] 13.0 fL 9.5-13.5 [facility] Platelets Auto (Bld) [#/Vol] on 01-06-2024 Platelets (Bld) [#/Vol] 153 10 3/uL 150-450 [facility] RBC Auto (Bld) [#/Vol]on RBC (Bld) [#/Vol] 4.42 10 6/uL 4.70-6.10 [facility] Serum or plasma anion gap de terminationon 01-06-2024 Anion gap [Moles/Vol] 12.9 mmol/L [facility] Pre-Certification Formon Pre-Certification Form [id number]#1.00TIFF Normal [facility] Ambulatory Visit Summaryon 0 11-17-2023 Ambulatory Visit Summary ALISIA CORREA :1960 Visit Date:11/17/2023 Ambulatory Visit Instructions Your [...] 11:30 AM EST Where: [facility] Pre-Certification Formon Pre-Certification Form [id number]#1.00TIFF [facility] A1C HEMOGLOBINon 11-10-2023 HbA1c (Bld) [Mass fraction] 5.7 % [employer] Other HbA1c (Bld) [Mass fraction]o n 11-10-2023 A1C HEMOGLOBIN [employer] Other C Urineon 10-23-2023 Bacteria identified Cx [...] Locations R1: This test was performed at: [facility], [address] [place] [address], [facility] , , [facility] Comment on above: Performed By: #### 2 [id number] #### [facility] [address] [place] [address] Ambulatory Visit Summaryon 0 10-22-2023 Ambulatory Visit Summary ALISIA CORREA :1960 Visit Date:10/21/2023 Ambulatory Visit Instructions Your Diagnosis Recurrent UTI BPH with urinary obstruction Your Care Team Attending Physician - RODRI PA-C, LYN E Primary Care Physician - ELLEN CRABTREE DO [...] EST Where: [facility] Ambulatory Visit Summaryon 11-15-2022 Ambulatory Visit Summary SUNNY ALISIA Cox :1960 Visit Date:09/15/2023 Ambulatory Visit Instructions Your [...] EST Where: [facility] Lab Reportson 08-28-2023 Lab Reports [id number]#1.00TIFF [facility] Formson 08-27-2023 Forms [id number]#1.00TIFF [facility] RAD - CT Reporton 08-24-2023 RAD - CT Report [id number]#1.00TIFF [facility] RAD - MISCon 08-17-2023 RAD - MISC [id number]#1.00TIFF [facility] Physician Orderon 08-03-2023 Physician Order [id number]#1.00TIFF Normal [facility] Physician Orderon 07-27-2023 Physician Order [id number]#1.00TIFF [facility] C Urineon 07-21-2023 Bacteria identified Cx Nom [...] Urology 07/21/2023 11:05:09 by SURAJ SUSCEPTIBILITY RESULTS __ LEGEND: S=Susceptible, N/R=Not Reported, [...] Locations R1: This test was performed at: [facility], [address] [place] [address], [id number] , [place], [facility] Comment on above: Performed By: #### 2 [id number] #### [facility] [address] [place] [address] Provider Letteron 07-13-2023 Provider Letter (Inserted Image. Nette ble to display) July 13, 2023 ALISIA CORREA [address] [place], [place] [address] [place] [address] : 1960 Dear Mr. Correa, We have been trying to reach you with no success. It is important that you return our call regarding your recent injections upon receiving this letter. Also, at the time of your call, please provide us with your current information. Please call our office at [phone]. Thank you for your prompt attention to this matter. Sincerely, [facility] [address] [place] [address]. [place] [address] [facility] Lab Reportson 07-08-2023 Lab Reports [id number]#1.00CD:12 7 [facility] Gent Levelon 07-01-2023 GENTAMICIN 8.8 microgram/mL Normal 0.5-10.0 [facility] Comment on above: Performed By: #### 2 [id number] ####[facility] [address] [place] [address] Lab Reportson 07-01-2023 Lab Reports [id number]#1.00CD:12 7 Normal [facility] Physician Orderon 07-01-2023 Physician Order [id number]#1.00CD:12 7 [facility] Physician Order [id number]#1.00CD:12 7 Normal [facility] Physician Orderon 06-29-2023 Physician Order [id number]#1.00CD:12 7 [facility] C Urineon 06-21-2023 Bacteria identified [...] Locations R1: This test was performed at: [facility], [address] [place] [address], [id number] , , [facility] Comment on above: Performed By: #### 2 [id number] #### [facility] [address] [place] [address] Ambulatory Visit Summaryon 0 06-19-2023 Ambulatory Visit Summary ALISIA CORREA :1960 Visit Date:06/19/2023 Ambulatory Visit Instructions Your Diagnosis Recurrent UTI Your Care Team Attending Physician - Fidel [...] EDT Where: [facility] Lab Reportson 06-08-2023 Lab Reports [id number]#1.00CD:12 7 [facility] Lab Reports [id number]#1.00CD:12 7 [facility] Lab Reports [id number]#1.00CD:12 7 [facility] Formson 05-29-2023 Forms [id number]#1.00CD:12 7 [facility] C Urineon 05-28-2023 Bacteria identified Cx Nom [...] Locations R1: This test was performed at: [facility], [address] [place] [address], [id number] [place] [address], Normal [facility] Comment on above: Performed By: #### 2 [id number] #### [facility] [address] [place] [address] CALCULI, URINARYon 3 2,8 Dihydroxyadenine Normal [facility] Comment on above: Performed By: #### C VDTBH #### [facility] [address] [place] [address] Dr. Bruce Nicholas Ammonium Acid Urate Normal [facility] Comment on above: Performed By: #### C VDTBH #### [facility] [address] [place] [address] Dr. Bruce Nicholas Bilirubin Ql (U) Normal [facility] Comment on above: Performed By: #### C VDTBH #### [facility] [address] [place] [address] Dr. Bruce Nicholas Ca Oxalate Dihydrate 20 % Normal [facility] Comment on above: Performed By: #### C VDTBH #### [facility] [address] [place] [address] Dr. Bruce Nicholas CaHPO4 (Brushite) [facility] Comment on above: Performed By: #### C VDTBH #### [facility] [address] [address] [address] Bruce Nicholas Calcium Bilirubinate Normal [facility] Comment on above: Performed By: #### C VDTBH #### [facility] [address] [address] [address] Bruce Nicholas Calcium Carbonate Normal [facility] Comment on above: Performed By: #### C VDTBH #### [facility] [address] [address] [address] Bruce Nicholas Calcium Oxalate Monohydrate 80 % [facility] Comment on above: Performed By: #### C VDTBH #### [facility] [address] [address] [address] Bruce Nicholas Calcium Palmitate [facility] Comment on above: Performed By: #### C VDTBH #### [facility] [address] [place] [address] Dr. Bruce Nichoals Calcium Phosphate [facility] Comment on above: Performed By: #### C VDTBH #### [facility] [address] [address] [address] Bruce Nicholas Calcium Stearate [facility] Comment on above: Performed By: #### C VDTBH #### [facility] [address] [place] [address] Dr. Bruce Nicholas Carbonate Apatite Normal [facility] Comment on above: Performed By: #### C VDTBH #### [facility] [address] [place] [address] Dr. Bruce Nicholas Cellular Material [facility] Comment on above: Performed By: #### C VDTBH #### [facility] [address] [address] [address] Bruce Nicholas Cholesterol [facility] Comment on above: Performed By: #### C VDTBH #### [facility] [address] [place] [address] Dr. Bruce Nicholas Color (U) Brown Normal [facility] Comment on above: Performed By: #### C VDTBH #### [facility] [address] [place] [address] Dr. Bruce Nicholas Comment Normal [facility] Comment on above: Performed By: #### C VDTBH #### [facility] [address] [place] [address] Dr. Bruce Nicholas Comment Comment Normal [facility] Comment on above: Result Comment: Calc ulus received wet. Wet calculi must be dried before analysis, which delays reporting of results. Leaving calculi wet (such as water, saline, blood, urine) may lead to changes in composition. Performed By: #### C VDTBH #### [facility] [address] [place] [address] Dr. Bruce Nicholas Comment: Comment Normal [facility] Comment on above: Result Comment: Phys lui questions regarding Calculi Analysis contact [email or web address] at: [phone]. Performed By: #### C VDTBH #### [facility] [address] [place] [address] Dr. Bruce Nicholas Composition Comment [facility] Comment on above: Result Comment: Perc entage (Represents the % composition) Performed By: #### C VDTBH #### [facility] [address] [place] [address] Dr. Bruce Nicholas Cystine Normal [facility] Comment on above: Performed By: #### C VDTBH #### [facility] [address] [place] [address] Dr. Bruce Nicholas Disclaimer: Comment Normal [facility] Comment on above: Result Comment: This test was developed and its performance characteristics determined by [facility]. It has not been cleared or approved by the Food and Drug Administration. Performed By: #### C VDTBH #### [facility] [address] [place] [address] Dr. Bruce Nicholas Dried Blood Normal [facility] Comment on above: Performed By: #### C VDTBH #### [facility] [address] [place] [address] Dr. Bruce Nicholas Drug or Metabolite Normal [facility] Comment on above: Performed By: #### C VDTBH #### [facility] [address] [address] [address] Bruce Nicholas Hydroxyapatite [facility] Comment on above: Performed By: #### C VDTBH #### [facility] [address] [address] [address] Bruce Nicholas Mg NH4 PO4 (Struvite) Normal [facility] Comment on above: Performed By: #### C VDTBH #### [facility] [address] [address] [address] Bruce Nicholas MgHPO4 (Newberyite) Normal [facility] Comment on above: Performed By: #### C VDTBH #### [facility] [address] [address] [address] Bruce Nicholas Other component(s) Normal [facility] Comment on above: Performed By: #### C VDTBH #### [facility] [address] [address] [address] Bruce Nicholas PDF . Normal [facility] Comment on above: Performed By: #### C VDTBH #### [facility] [address] [address] [address] Bruce Nicholas Photo Comment [facility] Comment on above: Result Comment: Phot ograph will follow under a separate cover Performed By: #### C VDTBH #### [facility] [address] [address] [address] Bruce Nicholas Please note: Comment Normal [facility] Comment on above: Result Comment: Calc jayant report will follow via computer, mail or tele rn delivery. Performed By: #### C VDTBH #### [facility] [address] [address] [address] Bruce Nicholas Size 6x4 [facility] Comment on above: Result Comment: Mult iple pieces received. Dimensions of the largest piece reported. Performed By: #### C VDTBH #### [facility] [address] [address] [address] Bruce Nicholas Sodium Acid Urate Normal [facility] Comment on above: Performed By: #### C VDTBH #### [facility] [address] [address] [address] Bruce Nicholas Source Comment [facility] Comment on above: Result Comment: Urin francine Bladder Performed By: #### C VDTBH #### [facility] [address] [address] [address] Bruce Nicholas Triamterene [facility] Comment on above: Performed By: #### C VDTBH #### [facility] [address] [address] [address] Bruce Nicholas Uric Acid [facility] Comment on above: Performed By: #### C VDTBH #### [facility] [address] [address] [address] Bruce Nicholas Uric Acid Dihydrate Normal [facility] Comment on above: Performed By: #### C VDTBH #### [facility] [address] [place] [address] Dr. Bruce Nicholas Weight 615 mg [facility] Comment on above: Performed By: #### C VDTBH #### [facility] [address] [address] [address] Bruce Nicholas Xanthine [facility] Comment on above: Performed By: #### C VDTBH #### [facility] [address] [place] [address] Dr. Bruce Nicholas POINT OF CARE GLUCOSEon Glucose [Mass/Vol] 70 mg/dL Critically low 74-106 Th [facility] Comment on above: Performed By: #### C BC #### [facility] [address] [place] [address] Dr. Bruce Nicholas CBC AUTO DIFFon 01-20-2023 BASO # 0.0 103/ul Normal 0.0-0.1 [facility] Comment on above: Performed By: #### C VDTBH #### [facility] [address] [place] [address] Dr. Bruce Nicholsa Basophils/100 WBC (Bld) 0.2 % Normal 0.2-2.0 [facility] Comment on above: Performed By: #### C VDTBH #### [facility] [address] [place] [address] Dr. Bruce Nicholas EO # 0.1 103/ul Normal 0.0-0.7 [facility] Comment on above: Performed By: #### C VDTBH #### [facility] [address] [place] [address] Dr. Bruce Nicholas Eosinophils/100 WBC (Bld) 0.7 % Critically low 0.9-7.0 [facility] Comment on above: Performed By: #### C VDTBH #### [facility] [address] [place] [address] Dr. Bruce Nicholas Erythrocyte distribution width (RBC) [Ratio] 15.2 % Critically high 11.0-15.0 [facility] Comment on above: Performed By: #### C VDTBH #### [facility] [address] [place] [address] Dr. Bruce Nicholas Hematocrit (Bld) [Volume fraction] 43.0 % Normal 42.0-54.0 [facility] Comment on above: Performed By: #### C VDTBH #### [facility] [address] [place] [address] Dr. Bruce Nicholas Hemoglobin (Bld) [Mass/Vol] 13.7 g/dL Critically low 14.0-18.0 [facility] Comment on above: Performed By: #### C VDTBH #### [facility] [address] [place] [address] Dr. Bruce Nicholas IG # 0.04 10e3/ul Critically high 0.00-0.03 [facility] Comment on above: Performed By: #### C VDTBH #### [facility] [address] [place] [address] Dr. Bruce Nicholas IG % 0.5 % Normal 0.0-0.5 [facility] Comment on above: Performed By: #### C VDTBH #### [facility] [address] [place] [address] Dr. Bruce Nicholas LYMPH # 1.6 103/ul Normal 1.2-3.8 [facility] Comment on above: Performed By: #### C VDTBH #### [facility] [address] [place] [address] Dr. Bruce Nicholas Lymphocytes/100 WBC (Bld) 18.4 % Critically low 20.5-60.0 [facility] Comment on above: Performed By: #### C VDTBH #### [facility] [address] [place] [address] Dr. Bruce Nicholas MANUAL DIFF REQ NO Normal [facility] Comment on above: Performed By: #### C VDTBH #### [facility] [address] [place] [address] Dr. Bruce Nicholas MCH (RBC) [Entitic mass] 28.8 pg Normal 25.9-34.0 [facility] Comment on above: Performed By: #### C VDTBH #### [facility] [address] [place] [address] Dr. Bruce Nicholas MCHC (RBC) [Mass/Vol] 31.9 g/dL Normal 29.9-35.2 [facility] Comment on above: Performed By: #### C VDTBH #### [facility] [address] [place] [address] Dr. Bruce Nicholas MCV (RBC) [Entitic vol] 90.3 fL Normal 80.0-94.0 [facility] Comment on above: Performed By: #### C VDTBH #### [facility] [address] [place] [address] Dr. Bruce Nicholas MONO # 0.6 103/ul Normal 0.3-0.8 [facility] Comment on above: Performed By: #### C VDTBH #### [facility] [address] [place] [address] Dr. Bruce Nicholas Monocytes/100 WBC (Bld) 6.5 % Normal 1.7-12.0 [facility] Comment on above: Performed By: #### C VDTBH #### [facility] [address] [place] [address] Dr. Bruce Nicholas NEUT # 6.4 103/ul Normal 1.4-6.5 [facility] Comment on above: Performed By: #### C VDTBH #### [facility] [address] [place] [address] Dr. Bruce Nicholas Neutrophils/100 WBC (Bld) 73.7 % Normal 43.0-75.0 [facility] [facility] Comment on above: Performed By: #### C VDTBH #### [facility] [address] [place] [address] Dr. Bruce Nicholas Platelet mean volume (Bld) [Entitic vol] 11.6 fL Normal 9.5-13.5 [facility] Comment on above: Performed By: #### C VDTBH #### [facility] [address] [place] [address] Dr. Bruce Nicholas PLT 229 103/ul Normal 150-450 [facility] Comment on above: Performed By: #### C VDTBH #### [facility] [address] [place] [address] Dr. Bruce Nicholas RBC 4.76 106/ul Normal 4.70-6.10 [facility] Comment on above: Performed By: #### C VDTBH #### [facility] [address] [place] [address] Dr. Bruce Nicholas WBC 8.7 103/ul Normal 4.0-11.0 [facility] Comment on above: Performed By: #### C VDTBH #### [facility] [address] [place] [address] Dr. Bruce Nicholas PROF CHEM 8 (BAS METB)on Anion gap [Moles/Vol] 11.1 mmol/L Normal [facility] Comment on above: Performed By: #### C BC #### [facility] [address] [place] [address] Dr. Bruce Nicholas Calcium [Mass/Vol] 9.5 mg/dL Normal 8.5-10.1 [facility] Comment on above: Performed By: #### C BC #### [facility] [address] [place] [address] Dr. Bruce Nicholas Chloride [Moles/Vol] 105 mmol/L Normal 98-107 [facility] Comment on above: Performed By: #### C BC #### [facility] [address] [address] [address] Bruce Nicholas CO2 [Moles/Vol] 27.5 mmol/L Normal 21.0-32.0 [facility] Comment on above: Performed By: #### C BC #### [facility] [address] [address] [address] Bruce Nicholas Creatinine [Mass/Vol] 0.73 mg/dL Normal 0.70-1.30 [facility] Comment on above: Performed By: #### C BC #### [facility] [address] [place] [address] Dr. Bruce Nicholas EGFR-AF CAMBODIAN >60 Normal >=60 [facility] Comment on above: Performed By: #### C BC #### [facility] [address] [address] [address] Bruce Nicholas EGFR-NON AF CAMBODIAN >60 Normal >=60 [facility] Comment on above: Performed By: #### C BC #### [facility] [address] [address] [address] Bruce Nicholas Glucose [Mass/Vol] 97 mg/dL Normal 74-106 [facility] Comment on above: Performed By: #### C BC #### [facility] [address] [address] [address] Bruce Nciholas Potassium [Moles/Vol] 4.1 mmol/L Normal 3.5-5.1 [facility] Comment on above: Performed By: #### C BC #### [facility] [address] [address] [address] Bruce Nicholas Sodium [Moles/Vol] 140 mmol/L Normal 136-145 [facility] Comment on above: Performed By: #### C BC #### [facility] [address] [address] [address] Bruce Nicholas Urea nitrogen [Mass/Vol] 22.0 mg/dL Critically high 7.0-18.0 [facility] Comment on above: Performed By: #### C BC #### [facility] [address] [address] [address] Bruce Nicholas Urea nitrogen/Creatinine [Mass ratio] 30.1 mg/mg Normal [facility] Comment on above: Performed By: #### C BC #### [facility] [id number] Bruce SHEAREROVon 12-24-2022 CNOV Office Visit (URFMOB ) ----- ALISIA CORREA ([id number]) 1960 M Date Time Provider Department 12/24/22 11:30 AM SAY REYES URFMOB During your visit today, we recorded the [...] Ulcerative lesio (more content not included)... Normal [facility] CULTURE URINEon 12-21-2022 CULTURE URINE Isolate 1 Pseudomonas aeruginosa >100,000 cfu/mL of ORGANISM 1 Pseudomonas aeruginosa ANTIBIOTIC M.I.C RX STATUS Piperacillin/Tazobactam <=4 S F Ceftazidime <=1 S F Imipenem 1 S F Amikacin <=2 S F Gentamicin <=1 S F Tobramycin <=1 S F Ciprofloxacin <=0.25 S F Levofloxacin 0.25 S F Normal [facility] Comment on above: Performed By: #### U RCX #### [facility] [address] [place] [address] Dr. Bruce Nicholas CBC AUTO DIFFon 12-18-2022 BASO # 0.0 103/ul Normal 0.0-0.1 [facility] Comment on above: Performed By: #### P OCGLUC #### [facility] [address] [place] [address] Dr. Bruce Nicholas Basophils/100 WBC (Bld) 0.6 % Normal 0.2-2.0 [facility] Comment on above: Performed By: #### P OCGLUC #### [facility] [address] [place] [address] Dr. Bruce Nicholas EO # 0.2 103/ul Normal 0.0-0.7 [facility] Comment on above: Performed By: #### P OCGLUC #### [facility] [address] [place] [address] Dr. Bruce Nicholas Eosinophils/100 WBC (Bld) 3.2 % Normal 0.9-7.0 [facility] Comment on above: Performed By: #### P OCGLUC #### [facility] [address] [address] [address] Bruce Nicholas Erythrocyte distribution width (RBC) [Ratio] 16.6 % Critically high 11.0-15.0 [facility] Comment on above: Performed By: #### P OCGLUC #### [facility] [address] [place] [address] Dr. Bruce Nicholas Hematocrit (Bld) [Volume fraction] 37.9 % Critically low 42.0-54.0 [facility] Comment on above: Performed By: #### P OCGLUC #### [facility] [address] [place] [address] Dr. Bruce Nicholas Hemoglobin (Bld) [Mass/Vol] 12.0 g/dL Critically low 14.0-18.0 [facility] Comment on above: Performed By: #### P OCGLUC #### [facility] [address] [place] [address] Dr. Bruce Nicholas IG # 0.02 10e3/ul Normal 0.00-0.03 [facility] Comment on above: Performed By: #### P OCGLUC #### [facility] [address] [place] [address] Dr. Bruce Nicholas IG % 0.3 % Normal 0.0-0.5 [facility] Comment on above: Performed By: #### P OCGLUC #### [facility] [address] [place] [address] Dr. Bruce Nicholas LYMPH # 1.2 103/ul Normal 1.2-3.8 [facility] Comment on above: Performed By: #### P OCGLUC #### [facility] [address] [place] [address] Dr. Bruce Nicholas Lymphocytes/100 WBC (Bld) 16.7 % Critically low 20.5-60.0 [facility] Comment on above: Performed By: #### P OCGLUC #### [facility] [address] [address] [address] Bruce Nicholas MANUAL DIFF REQ NO Normal [facility] Comment on above: Performed By: #### P OCGLUC #### [facility] [address] [address] [address] Bruce Nicholas MCH (RBC) [Entitic mass] 28.4 pg Normal 25.9-34.0 [facility] Comment on above: Performed By: #### P OCGLUC #### [facility] [address] [address] [address] Bruce Nicholas MCHC (RBC) [Mass/Vol] 31.7 g/dL Normal 29.9-35.2 [facility] Comment on above: Performed By: #### P OCGLUC #### [facility] [address] [place] [address] Dr. Bruce Nicholas MCV (RBC) [Entitic vol] 89.6 fL Normal 80.0-94.0 [facility] Comment on above: Performed By: #### P OCGLUC #### [facility] [address] [place] [address] Dr. Bruce Nicholas MONO # 0.6 103/ul Normal 0.3-0.8 [facility] Comment on above: Performed By: #### P OCGLUC #### [facility] [address] [place] [address] Dr. Bruce Nicholas Monocytes/100 WBC (Bld) 7.9 % Normal 1.7-12.0 [facility] Comment on above: Performed By: #### P OCGLUC #### [facility] [address] [place] [address] Dr. Bruce Nicholas NEUT # 5.0 103/ul Normal 1.4-6.5 [facility] Comment on above: Performed By: #### P OCGLUC #### [facility] [address] [place] [address] Dr. Bruce Nicholas Neutrophils/100 WBC (Bld) 71.3 % Normal 43.0-75.0 [facility] Comment on above: Performed By: #### P OCGLUC #### [facility] [address] [address] [address] Bruce Nicholas Platelet mean volume (Bld) [Entitic vol] 12.4 fL Normal 9.5-13.5 [facility] Comment on above: Performed By: #### P OCGLUC #### [facility] [address] [address] [address] Bruce Nicholas PLT 156 103/ul Normal 150-450 [facility] Comment on above: Performed By: #### P OCGLUC #### [facility] [address] [address] [address] Bruce Nicholas RBC 4.23 106/ul Critically low 4.70-6.10 [facility] Comment on above: Performed By: #### P OCGLUC #### [facility] [address] [address] [address] Bruce Nicholas WBC 6.9 103/ul Normal 4.0-11.0 [facility] Comment on above: Performed By: #### P OCGLUC #### [facility] [address] [address] [address] ABD/PELVIS WO CONon 12-18 CT ABD/PELVIS WO CON EXAMINATION: CT ABD/PELVIS WO CON, 12/18/2022 1:17 PM MST HISTORY: Retention of urine COMPARISON: None. TECHNIQUE: CT scan of the abdomen and pelvis was performed without IV contrast. CT dose reduction technique was used, including Automated Exposure Control. FINDINGS: Inspector Scales: No pertinent findings, which are not already [...] CHE PANDYA Date: 2022-12-18 17:14 Normal [facility] URINE PROFILEon 3 Bilirubin Ql (U) Negative Normal NEGATIVE [facility] Comment on above: Performed By: #### P OCGLUC #### [facility] [address] [place] [address] Dr. Bruce Nicholas Clarity (U) CLEAR Normal CLEAR [facility] Comment on above: Performed By: #### P OCGLUC #### [facility] [address] [address] [address] Bruce Nicholas Color (U) BROWN Abnormal YELLOW [facility] Comment on above: Performed By: #### P OCGLUC #### [facility] [address] [address] [address] Bruce WHEAT A micrscopic examina tion will be performed if indicated. Normal [facility] Comment on above: Performed By: #### P OCGLUC #### [facility] [address] [address] [address] Bruce Nicholas Glucose Ql (U) Negative Normal NEGATIVE [facility] Comment on above: Performed By: #### P OCGLUC #### [facility] [address] [address] [address] Bruce Nicholas Hemoglobin Ql (U) MODERATE Abnormal NEGATIVE [facility] Comment on above: Performed By: #### P OCGLUC #### [facility] [address] [place] [address] Dr. Bruce Nicholas Ketones Ql (U) Negative Normal NEGATIVE [facility] Comment on above: Performed By: #### P OCGLUC #### [facility] [address] [place] [address] Dr. Bruce Nicholas LEUKOCYTES LARGE Abnormal NEGATIVE [facility] Comment on above: Performed By: #### P OCGLUC #### [facility] [address] [place] [address] Dr. Bruce Nicholas Nitrite Ql (U) Positive Abnormal NEGATIVE [facility] Comment on above: Performed By: #### P OCGLUC #### [facility] [address] [place] [address] Dr. Bruce Nicholas pH (U) 6.0 [pH] Normal 5-9 [facility] Comment on above: Performed By: #### P OCGLUC #### [facility] [address] [place] [address] Dr. Bruce Nicholas Protein (U) [Mass/Vol] 30 mg/dL Abnormal NEGAT AV/ TRACE [facility] Comment on above: Performed By: #### P OCGLUC #### [facility] [address] [place] [address] Dr. Bruce Nicholas SPEC GRAVITY 1.020 Normal 1.005-<=1. 025 [facility] Comment on above: Performed By: #### P OCGLUC #### [facility] [address] [place] [address] Dr. Bruce Nicholas UR MICRO IND INDICATED Normal [facility] Comment on above: Performed By: #### P OCGLUC #### [facility] [address] [place] [address] Dr. Bruce Nicholas Urobilinogen Qn (U) 1.0 {Phillip'U}/dL Normal 0.2 - 1. 0 [facility] Comment on above: Performed By: #### P OCGLUC #### [facility] [address] [place] [address] Dr. Bruce Nicholas PROF 14(COMP METB)on 023 Albumin [Mass/Vol] 3.0 g/dL Critically low 3.4-5.0 Th e [facility] Comment on above: Performed By: #### C VDTBH #### [facility] [address] [place] [address] Dr. Bruce Nicholas Albumin/Globulin [Mass ratio] 0.9 {ratio} Normal [facility] Comment on above: Performed By: #### C VDTBH #### [facility] [address] [place] [address] Dr. Bruce Nicholas ALP [Catalytic activity/Vol] 112 U/L Normal 46-116 [facility] Comment on above: Performed By: #### C VDTBH #### [facility] [address] [place] [address] Dr. Bruce Nicholas ALT [Catalytic activity/Vol] 7 U/L Critically low 16-63 [facility] Comment on above: Performed By: #### C VDTBH #### [facility] [address] [place] [address] Dr. Bruce Nicholas Anion gap [Moles/Vol] 5.6 mmol/L Normal [facility] Comment on above: Performed By: #### C VDTBH #### [facility] [address] [place] [address] Dr. Bruce Nicholas AST [Catalytic activity/Vol] 19 U/L Normal 15-37 [facility] Comment on above: Performed By: #### C VDTBH #### [facility] [address] [place] [address] Dr. Bruce Nicholas Bilirubin [Mass/Vol] 0.6 mg/dL Normal 0.2-1.0 [facility] Comment on above: Performed By: #### C VDTBH #### [facility] [address] [place] [address] Dr. Bruce Nicholas Calcium [Mass/Vol] 9.0 mg/dL Normal 8.5-10.1 [facility] Comment on above: Performed By: #### C VDTBH #### [facility] [address] [place] [address] Dr. Bruce Nicholas Chloride [Moles/Vol] 106 mmol/L Normal 98-107 [facility] Comment on above: Performed By: #### C VDTBH #### [facility] [address] [place] [address] Dr. Bruce Nicholas CO2 [Moles/Vol] 29.0 mmol/L Normal 21.0-32.0 [facility] Comment on above: Performed By: #### C VDTBH #### [facility] [address] [place] [address] Dr. Bruce Nicholas Creatinine [Mass/Vol] 0.71 mg/dL Normal 0.70-1.30 [facility] Comment on above: Performed By: #### C VDTBH #### [facility] [address] [place] [address] Dr. Bruce Nicholas EGFR-AF CAMBODIAN >60 Normal >=60 [facility] Comment on above: Performed By: #### C VDTBH #### [facility] [address] [place] [address] Dr. Bruce Nicholas EGFR-NON AF CAMBODIAN >60 Normal >=60 [facility] Comment on above: Performed By: #### C VDTBH #### [facility] [address] [place] [address] Dr. Bruce Nicholas Globulin (S) [Mass/Vol] 3.2 g/dL Normal [facility] Comment on above: Performed By: #### C VDTBH #### [facility] [address] [place] [address] Dr. Bruce Nicholas Glucose [Mass/Vol] 93 mg/dL Normal 74-106 [facility] Comment on above: Performed By: #### C VDTBH #### [facility] [address] [place] [address] Dr. Bruce Nicholas Potassium [Moles/Vol] 3.6 mmol/L Normal 3.5-5.1 [facility] Comment on above: Performed By: #### C VDTBH #### [facility] [address] [place] [address] Dr. Bruce Nicholas Protein [Mass/Vol] 6.2 g/dL Critically low 6.4-8.2 [facility] Comment on above: Performed By: #### C VDTBH #### [facility] [address] [place] [address] Dr. Bruce Nicholas Sodium [Moles/Vol] 137 mmol/L Normal 136-145 [facility] Comment on above: Performed By: #### C VDTBH #### [facility] [address] [place] [address] Dr. Bruce Nicholas Urea nitrogen [Mass/Vol] 22.0 mg/dL Critically high 7.0-18.0 [facility] Comment on above: Performed By: #### C VDTBH #### [facility] [address] [place] [address] Dr. Bruce Nicholas Urea nitrogen/Creatinine [Mass ratio] 31.0 mg/mg Normal [facility] Comment on above: Performed By: #### C VDTBH #### [facility] [address] [place] [address] Dr. Bruce Nicholas URINE MICROSCOPIC ONLYon BACTERIA SMALL Abnormal NONE SEEN [facility] Comment on above: Performed By: #### P OCGLUC #### [facility] [address] [place] [address] Dr. Bruce Nicholas Bacteria identified Cx Nom (U) INDICATED Normal [facility] Comment on above: Performed By: #### P OCGLUC #### [facility] [address] [place] [address] Dr. Bruce Nicholsa CAST NONE SEEN Normal NONE SEEN [facility] Comment on above: Performed By: #### P OCGLUC #### [facility] [address] [place] [address] Dr. Bruce Nicholas Crystals LM Nom (Urine sed) NONE SEEN Normal NONE SEEN [facility] Comment on above: Performed By: #### P OCGLUC #### [facility] [address] [address] [address] Bruce Nicholas Epithelial cells LM Ql (Urine sed) NONE SEEN Normal NONE SEEN /RARE [facility] Comment on above: Performed By: #### P OCGLUC #### [facility] [address] [address] [address] Bruce Nicholas MUCOUS NONE SEEN Normal NONE SEEN [facility] Comment on above: Performed By: #### P OCGLUC #### [facility] [address] [address] [address] Bruce Nicholas RBC 10-20 Abnormal 0-2 [facility] Comment on above: Performed By: #### P OCGLUC #### [facility] [address] [address] [address] Bruce Nicholas WBC 50-75 Abnormal NONE SEEN [facility] Comment on above: Performed By: #### P OCGLUC #### [facility] [address] [address] [address] Bruce Nicholas CASE MANAGEMon 12-06-2022 CASE MANAGEM Normal [facility] CNDSon 12-06-2022 CNDS Normal [facility] CASE MANAGEMon 12-05-2022 CASE MANAGEM Normal [facility] CONSULT PROGon 12-05-2022 CONSULT PROG Normal [facility] NUTRITIONon 12-05-2022 NUTRITION Normal [facility] SOCIAL WORKon 12-05-2022 SOCIAL WORK Normal [facility] CASE MANAGEMon 12-04-2022 CASE MANAGEM Normal [facility] CONSULTon 12-04-2022 CONSULT Normal [facility] ALLIED HEALTHon 12-03-2022 ALLIED HEALTH Normal [facility] CASE MANAGEMon 12-03-2022 CASE MANAGEM Normal [facility] CBC panel Auto (Bld)on 12-03 Erythrocyte distribution width (RBC) [Ratio] 16.1 % High 11.5-15.0 [facility] Comment on above: Order Comment: Speci men Type: BLOOD SPECIMENOrdering Facility: [facility] Address: [address] [place] [id number] Performed By: #### 5 8410-2 ####[facility] [id number] [place] [address] [place] Hematocrit (Bld) [Volume fraction] 38.3 % Low 39.0-51.0 [facility] Comment on above: Order Comment: Speci men Type: BLOOD SPECIMENOrdering Facility: [facility] Address: [address] [place] [address] Performed By: #### 5 8410-2 ####[facility] [id number] [address] [place] Hemoglobin (Bld) [Mass/Vol] 12.4 g/dL Low 13.0-17.0 [facility] Comment on above: Order Comment: Speci men Type: BLOOD SPECIMENOrdering Facility: [facility] Address: [address] [place] [address] Performed By: #### 5 8410-2 ####[facility] [id number] [address] [place] MCH (RBC) [Entitic mass] 28.1 pg Normal 26.0-34.0 [facility] Comment on above: Order Comment: Speci men Type: BLOOD SPECIMENOrdering Facility: [facility] Address: [address] [place] [address] Performed By: #### 5 8410-2 ####[facility] [id number] [address] [place] MCHC (RBC) [Mass/Vol] 32.4 g/dL Normal 30.5-36.0 [facility] Comment on above: Order Comment: Speci men Type: BLOOD SPECIMENOrdering Facility: [facility] Address: [address] [place] [address] Performed By: #### 5 8410-2 ####[facility] [id number] [place] [address] [place] MCV (RBC) [Entitic vol] 86.7 fL Normal 80.0-100.0 [facility] Comment on above: Order Comment: Speci men Type: BLOOD SPECIMENOrdering Facility: [facility] Address: [address] [place], [place] [id number] Performed By: #### 5 8410-2 ####[facility] [id number] [place] [address] [place] Nucleated RBC (Bld) [#/Vol] 10*3/uL Normal <0.01 [facility] Comment on above: Order Comment: Speci men Type: BLOOD SPECIMENOrdering Facility: [facility] Address: [address] [place], [place] [id number] Performed By: #### 5 8410-2 ####[facility] [id number] [address] [place] Platelet mean volume (Bld) [Entitic vol] 13.0 fL High 9.0-12.7 [facility] Comment on above: Order Comment: Speci men Type: BLOOD SPECIMENOrdering Facility: [facility] Address: [address] [place], [place] [id number] Performed By: #### 5 8410-2 ####[facility] [id number] [place] [address] [place] Platelets (Bld) [#/Vol] 144 10*3/uL Low 150-400 [facility] Comment on above: Order Comment: Speci men Type: BLOOD SPECIMENOrdering Facility: [facility] Address: [address] [place], [place] [id number] Result Comment: Resu lts checked and verified.No clot detected. Performed By: #### 5 8410-2 ####[facility] [id number] [place] [address] [place] RBC (Bld) [#/Vol] 4.42 10*6/uL Normal 4.20-6.00 [facility] Comment on above: Order Comment: Speci men Type: BLOOD SPECIMENOrdering Facility: [facility] Address: [address] [place], [place] [id number] Performed By: #### 5 8410-2 ####[facility] [id number] [place] [address] [place] WBC (Bld) [#/Vol] 9.30 10*3/uL Normal 3.70-11.00 [facility] Comment on above: Order Comment: Speci men Type: BLOOD SPECIMENOrdering Facility: [facility] Address: [address] [place], [place] [id number] Performed By: #### 5 8410-2 ####[facility] [id number] [place] [address] [place] CONSULT PROGon 12-03-2022 CONSULT PROG Normal [facility] ECG COMPLETEon 12-03-2022 ECG COMPLETE Normal [facility] [employer] monoxide pane l (BldV)on 12-03-2022 Base excess Calc (BldV) [Moles/Vol] 1 mmol/L Normal 0-2 [facility] Comment on above: Order Comment: Speci men Type: VENOUS BLOOD SPECIMENOrdering Facility: [facility] Address: [address] [place], [place] [address] Performed By: #### 2 4344-4 ####[facility] [id number] [place] [address] [place] Body temperature 97.52 [degF] Normal [facility] Comment on above: Order Comment: Speci men Type: VENOUS BLOOD SPECIMENOrdering Facility: [facility] Address: [address] [place], [place] [address] Performed By: #### 2 4344-4 ####[facility] [id number] [place] [address] [place] Calcium.ionized (Bld) [Mass/Vol] 1.17 mmol/L Normal 1.08-1.30 [facility] Comment on above: Order Comment: Speci men Type: VENOUS BLOOD SPECIMENOrdering Facility: [facility] Address: [address] [place] [address] Performed By: #### 2 4344-4 ####[facility] [id number] [place] [address] [place] Calcium.ionized adjusted to pH 7.4 (BldA) [Moles/Vol] 1.19 mmol/L Normal 1.08-1.30 [facility] Comment on above: Order Comment: Speci men Type: VENOUS BLOOD SPECIMENOrdering Facility: [facility] Address: [address] [place] [address] Performed By: #### 2 4344-4 ####[facility] [id number] [place] [address] [place] Carboxyhemoglobin (BldV) [Mass fraction] 0.6 % Normal 0.0-2.0 [facility] Comment on above: Order Comment: Speci men Type: VENOUS BLOOD SPECIMENOrdering Facility: [facility] Address: [address] [place] [address] Result Comment: Carb oxyhemoglobin Reference Range for Smokers: 2.0-8.0% Performed By: #### 2 4344-4 ####[facility] [id number] [place] [address] [place] CO2 (BldV) [Partial pressure] 38 mm[Hg] Low 42-55 [facility] Comment on above: Order Comment: Speci men Type: VENOUS BLOOD SPECIMENOrdering Facility: [facility] Address: [address] [place] [address] Performed By: #### 2 4344-4 ####[facility] [id number] [place] [address] [place] CO2 [Moles/Vol] 26 mmol/L Normal 25-29 [facility] Comment on above: Order Comment: Speci men Type: VENOUS BLOOD SPECIMENOrdering Facility: [facility] Address: [address] Performed By: #### 2 4344-4 ####[facility] [id number] [place] [address] [place] CO2 adjusted to patient's actual temperature (BldV) [Partial pressure] 37 mmHg Low 42-55 [facility] Comment on above: Order Comment: Speci men Type: VENOUS BLOOD SPECIMENOrdering Facility: [facility] Address: [address] Performed By: #### 2 4344-4 ####[facility] [id number] [place] [address] [place] Glucose [Mass/Vol] 110 mg/dL High 60-105 [facility] Comment on above: Order Comment: Speci men Type: VENOUS BLOOD SPECIMENOrdering Facility: [facility] Address: [address] Performed By: #### 2 4344-4 ####[facility] [id number] [place] [address] [place] HCO3 (Bld) [Moles/Vol] 25 mmol/L Normal 24-28 [facility] Comment on above: Order Comment: Speci men Type: VENOUS BLOOD SPECIMENOrdering Facility: [facility] Address: [address] Performed By: #### 2 4344-4 ####[facility] [id number] [place] [address] [place] Hematocrit (Bld) [Volume fraction] 36.2 % Low 39.0-51.0 [facility] Comment on above: Order Comment: Speci men Type: VENOUS BLOOD SPECIMENOrdering Facility: [facility] Address: [address] Performed By: #### 2 4344-4 ####[facility] [id number] [place] [address] [place] Hemoglobin (Bld) [Mass/Vol] 11.8 g/dL Low 13.0-17.0 [facility] Comment on above: Order Comment: Speci men Type: VENOUS BLOOD SPECIMENOrdering Facility: [facility] Address: [address] Performed By: #### 2 4344-4 ####[facility] [id number] [place] [address] [place] Lactate [Moles/Vol] 1.2 mmol/L Normal 0.5-2.2 [facility] Comment on above: Order Comment: Speci men Type: VENOUS BLOOD SPECIMENOrdering Facility: [facility] Address: [address] [place], [place] [address] Performed By: #### 2 4344-4 ####[facility] [id number] [place] [address] [place] Methemoglobin (Bld) [Mass fraction] 1.5 % Normal 0.0-1.5 [facility] Comment on above: Order Comment: Speci men Type: VENOUS BLOOD SPECIMENOrdering Facility: [facility] Address: [address] [place], [place] [address] Performed By: #### 2 4344-4 ####[facility] [id number] [address] [place] O2 THERAPY RA=Room Air Normal [facility] Comment on above: Order Comment: Speci men Type: VENOUS BLOOD SPECIMENOrdering Facility: [facility] Address: [address] Performed By: #### 2 4344-4 ####[facility]IA [id number] [address] [place] [address] [place] Oxygen (BldV) [Partial pressure] 56 mm[Hg] High 35-45 [facility] Comment on above: Order Comment: Speci men Type: VENOUS BLOOD SPECIMENOrdering Facility: [facility] Address: [address] [place] [address] Performed By: #### 2 4344-4 ####[facility] [id number] [place] [address] [place] Oxygen adjusted to patient's actual temperature (BldV) [Partial pressure] 54 mmHg High 35-45 [facility] Comment on above: Order Comment: Speci men Type: VENOUS BLOOD SPECIMENOrdering Facility: [facility] Address: [address] [place], [place] [address] Performed By: #### 2 4344-4 ####[facility] [id number] [place] [address] [place] Oxygen saturation in Venous blood 88 % High 60-85 [facility] Comment on above: Order Comment: Speci men Type: VENOUS BLOOD SPECIMENOrdering Facility: [facility] Address: [address] [place] [address] Performed By: #### 2 4344-4 ####[facility] [id number] [place] [address] [place] Oxyhemoglobin (BldV) [Mass fraction] 86 % High 60-85 [facility] Comment on above: Order Comment: Speci men Type: VENOUS BLOOD SPECIMENOrdering Facility: [facility] Address: [address] [place] [address] Performed By: #### 2 4344-4 ####[facility] [id number] [place] [address] [place] pH (BldV) 7.43 [pH] High 7.32-7.42 [facility] Comment on above: Order Comment: Speci men Type: VENOUS BLOOD SPECIMENOrdering Facility: [facility] Address: [address] Performed By: #### 2 4344-4 ####[facility] [id number] [place] [address] [place] pH adjusted to patient's actual temperature (BldV) 7.44 High 7.32-7.42 [facility] Comment on above: Order Comment: Speci men Type: VENOUS BLOOD SPECIMENOrdering Facility: [facility] Address: [address] Performed By: #### 2 4344-4 ####[facility] [id number] [place] [address] [place] Potassium [Moles/Vol] 3.7 mmol/L Normal 3.5-5.0 [facility] Comment on above: Order Comment: Speci men Type: VENOUS BLOOD SPECIMENOrdering Facility: [facility] Address: [address] Performed By: #### 2 4344-4 ####[facility] [id number] [place] [address] [place] Sodium [Moles/Vol] 136 mmol/L Normal 136-144 [facility] Comment on above: Order Comment: Speci men Type: VENOUS BLOOD SPECIMENOrdering Facility: [facility] Address: [address] Performed By: #### 2 4344-4 ####[facility] [id number] [place] [address] [place] MEDICAL EMERon 12-03-2022 MEDICAL KALEB Normal [facility] Magnesium SerPl-mCncon 12-03 Magnesium [Mass/Vol] 2.0 mg/dL Normal 1.7-2.3 [facility] Comment on above: Order Comment: Speci men Type: BLOOD SPECIMENOrdering Facility: [facility] Address: [address] Performed By: #### 2 4362-6, ####[facility] [id number] [place] [address] [place] NURSING PROGon 12-03-2022 NURSING PROG Normal [facility] Renal function 2000 panelon 12-03-2022 Albumin [Mass/Vol] 3.0 g/dL Low 3.9-4.9 [facility] Comment on above: Order Comment: Speci men Type: BLOOD SPECIMENOrdering Facility: [facility] Address: [address] [place] [address] Performed By: #### 2 4362-6, ####[facility] [id number] [place] [address] [place] Anion gap [Moles/Vol] 9 mmol/L Normal 9-18 [facility] Comment on above: Order Comment: Speci men Type: BLOOD SPECIMENOrdering Facility: [facility] Address: [address] [place] [address] Performed By: #### 2 4362-6, ####[facility] [id number] [place] [address] [place] Calcium [Mass/Vol] 8.9 mg/dL Normal 8.5-10.2 [facility] Comment on above: Order Comment: Speci men Type: BLOOD SPECIMENOrdering Facility: [facility] Address: [address] [place] [address] Performed By: #### 2 4362-6, ####[facility] [id number] [place] [id number] [place] Chloride [Moles/Vol] 104 mmol/L Normal 97-105 [facility] Comment on above: Order Comment: Speci men Type: BLOOD SPECIMENOrdering Facility: [facility] Address: [address] [place] [address] Performed By: #### 2 4362-6, ####[facility] [id number] [place] [address] [place] CO2 [Moles/Vol] 25 mmol/L Normal 22-30 [facility] Comment on above: Order Comment: Speci men Type: BLOOD SPECIMENOrdering Facility: [facility] Address: [address] [place] [address] Performed By: #### 2 43611-24, ####[facility] [id number] [place] [address] [place] Creatinine [Mass/Vol] 0.62 mg/dL Low 0.73-1.22 [facility] Comment on above: Order Comment: Speci men Type: BLOOD SPECIMENOrdering Facility: [facility] Address: [address] [place] [address] Performed By: #### 2 43611-24, ####[facility] [id number] [place] [address] [place] ESTIMATED GLOMERULAR FILTRATION RATE 107 mL/min/1.73m??? Normal >=60 [facility] Comment on above: Order Comment: Speci men Type: BLOOD SPECIMENOrdering Facility: [facility] Address: [address] [place] [address] Result Comment: Karina mated Glomerular Filtration Rate [...] actual GFR. Performed By: #### 2 4362-6, ####[facility] [id number] [place] [id number] [place] Glucose [Mass/Vol] 87 mg/dL Normal 74-99 [facility] Comment on above: Order Comment: Chaz trevizo Type: BLOOD SPECIMENOrdering Facility: [facility] Address: [place] [id number] Result Comment: The Canadian Diabetes Association (ADA) provides guidance for cutoff [...] Standards of Medical Care in Diabetes 2016, Canadian Diabetes Association. Diabetes Care. 2016.39(Suppl 1). Performed By: #### 2 4362-6, ####[facility] [id number] [place] [address] [place] Phosphate [Mass/Vol] 2.4 mg/dL Low 2.7-4.8 [facility] Comment on above: Order Comment: Chaz trevizo Type: BLOOD SPECIMENOrdering Facility: [facility] Address: [address] [place], [place] [address] Performed By: #### 2 4362-6, ####[facility] [id number] [place] [address] [place] Potassium [Moles/Vol] 3.8 mmol/L Normal 3.7-5.1 [facility] Comment on above: Order Comment: Chaz trevizo Type: BLOOD SPECIMENOrdering Facility: [facility] Address: [address] [place], [place] [address] Performed By: #### 2 4362-6, ####[facility] [id number] [place] [address] [place] Sodium [Moles/Vol] 138 mmol/L Normal 136-144 [facility] Comment on above: Order Comment: Speci men Type: BLOOD SPECIMENOrdering Facility: [facility] Address: [address] [place] [address] Performed By: #### 2 4362-6, ####[facility] [id number] [facility] [place] [address] [place] Urea nitrogen [Mass/Vol] 24 mg/dL Normal 9-24 [facility] Comment on above: Order Comment: Speci men Type: BLOOD SPECIMENOrdering Facility: [facility] Address: [address] [place], [place] [address] Performed By: #### 2 4362-6, ####[facility] [id number] [place] [address] [place] THERAPY NTon 12-03-2022 THERAPY NT Normal [facility] Basic metabolic 2000 panelon 12-02-2022 Anion gap [Moles/Vol] 7 mmol/L Low 9-18 [facility] Comment on above: Order Comment: Speci men Type: BLOOD SPECIMENOrdering Facility: [facility] Address: [address] [place], [place] [address] Performed By: #### 1 9123-9, 2777-1, 52016-3 ####[facility] [id number] [place] [address] [place] Calcium [Mass/Vol] 8.5 mg/dL Normal 8.5-10.2 [facility] Comment on above: Order Comment: Speci men Type: BLOOD SPECIMENOrdering Facility: [facility] Address: [address] [place], [place] [address] Performed By: #### 1 9123-9, 2777-1, 30762-7 ####[facility] [id number] [facility] [place] [address] [place] Chloride [Moles/Vol] 106 mmol/L High 97-105 [facility] Comment on above: Order Comment: Speci men Type: BLOOD SPECIMENOrdering Facility: [facility] Address: [address] [place] [address] Performed By: #### 1 9123-9, 27704-18, 17225-0 ####[facility] [id number] [place] [address] [place] CO2 [Moles/Vol] 27 mmol/L Normal 22-30 [facility] Comment on above: Order Comment: Speci men Type: BLOOD SPECIMENOrdering Facility: [facility] Address: [address] [place] [address] Performed By: #### 1 9123-9, 27704-18, ####[facility] [id number] [place] [address] [place] Creatinine [Mass/Vol] 0.69 mg/dL Low 0.73-1.22 [facility] Comment on above: Order Comment: Speci men Type: BLOOD SPECIMENOrdering Facility: [facility] Address: [address] [place] [address] Performed By: #### 1 9123-9, 27704-18, ####[facility] [id number] [place] [address] [place] ESTIMATED GLOMERULAR FILTRATION RATE 103 mL/min/1.73m??? Normal >=60 [facility] Comment on above: Order Comment: Speci men Type: BLOOD SPECIMENOrdering Facility: [facility] Address: [address] [place] [address] Result Comment: Karina mated Glomerular Filtration Rate [...] GFR. Performed By: #### 1 9123-9, 2777-, 72418-7 ####[facility] [id number] [place] [id number] [place] Glucose [Mass/Vol] 78 mg/dL Normal 74-99 [facility] Comment on above: Order Comment: Speci men Type: BLOOD SPECIMENOrdering Facility: [facility] Address: [address] [place] [address] Result Comment: The Canadian Diabetes Association (ADA) provides guidance for cutoff [...] Standards of Medical Care in Diabetes 2016, Canadian Diabetes Association. Diabetes Care. 2016.39(Suppl 1). Performed By: #### 1 9123-9, 2777-, 47185-2 ####[facility] [id number] [place] [address] [place] Potassium [Moles/Vol] 3.6 mmol/L Low 3.7-5.1 [facility] Comment on above: Order Comment: Speci men Type: BLOOD SPECIMENOrdering Facility: [facility] Address: [address] [place] [address] Performed By: #### 1 9123-9, 2777-, 67077-2 ####[facility] [id number] [place] [address] [place] Sodium [Moles/Vol] 140 mmol/L Normal 136-144 [facility] Comment on above: Order Comment: Speci men Type: BLOOD SPECIMENOrdering Facility: [facility] Address: [address] Performed By: #### 1 9123-9, 2777-1, 45084-0 ####[facility] [id number] [place] [address] [place] Urea nitrogen [Mass/Vol] 26 mg/dL High 9-24 [facility] Comment on above: Order Comment: Speci men Type: BLOOD SPECIMENOrdering Facility: [facility] Address: [address] [place] [address] Performed By: #### 1 9123-9, 2777-1, 45091-9 ####[facility] [id number] [place] [address] [place] CASE MANAGEMon 12-02-2022 CASE MANAGEM Normal [facility] CBC panel Auto (Bld)on 12-02 Erythrocyte distribution width (RBC) [Ratio] 16.2 % High 11.5-15.0 [facility] Comment on above: Order Comment: Speci men Type: BLOOD SPECIMENOrdering Facility: [facility] Address: [address] [place], [place] [address] Performed By: #### 5 8410-2 ####[facility] [id number] [place] [address] [place] Hematocrit (Bld) [Volume fraction] 39.0 % Normal 39.0-51.0 [facility] Comment on above: Order Comment: Speci men Type: BLOOD SPECIMENOrdering Facility: [facility] Address: [address] [place], [place] [address] Performed By: #### 5 8410-2 ####[facility] [id number] [place] [address] [place] Hemoglobin (Bld) [Mass/Vol] 12.6 g/dL Low 13.0-17.0 [facility] Comment on above: Order Comment: Speci men Type: BLOOD SPECIMENOrdering Facility: [facility] Address: [address] Performed By: #### 5 8410-2 ####[facility] [id number] [address] MCH (RBC) [Entitic mass] 27.8 pg Normal 26.0-34.0 [facility] Comment on above: Order Comment: Speci men Type: BLOOD SPECIMENOrdering Facility: [facility] Address: [address] Performed By: #### 5 8410-2 ####[facility] [id number] [address] [place] MCHC (RBC) [Mass/Vol] 32.3 g/dL Normal 30.5-36.0 [facility] Comment on above: Order Comment: Speci men Type: BLOOD SPECIMENOrdering Facility: [facility] Address: [address] [place], [place] [address] Performed By: #### 5 8410-2 ####[facility] [id number] [address] [place] MCV (RBC) [Entitic vol] 85.9 fL Normal 80.0-100.0 [facility] Comment on above: Order Comment: Speci men Type: BLOOD SPECIMENOrdering Facility: [facility] Address: [address] [place] [address] Performed By: #### 5 8410-2 ####[facility] [id number] [address] [place] Nucleated RBC (Bld) [#/Vol] 10*3/uL Normal <0.01 [facility] Comment on above: Order Comment: Speci men Type: BLOOD SPECIMENOrdering Facility: [facility] Address: [address] [place], [place] [address] Performed By: #### 5 8410-2 ####[facility] [id number] [place] [address] [place] Platelet mean volume (Bld) [Entitic vol] 12.8 fL High 9.0-12.7 [facility] Comment on above: Order Comment: Speci men Type: BLOOD SPECIMENOrdering Facility: [facility] Address: [address] [place] [address] Performed By: #### 5 8410-2 ####[facility] [id number] [place] [address] [place] Platelets (Bld) [#/Vol] 129 10*3/uL Low 150-400 [facility] Comment on above: Order Comment: Speci men Type: BLOOD SPECIMENOrdering Facility: [facility] Address: [address] [place] [address] Result Comment: No c lot detected.Results checked and verified. Performed By: #### 5 8410-2 ####[facility] [id number] [place] [address] [place] RBC (Bld) [#/Vol] 4.54 10*6/uL Normal 4.20-6.00 [facility] Comment on above: Order Comment: Speci men Type: BLOOD SPECIMENOrdering Facility: [facility] Address: [address] [place] [address] Performed By: #### 5 8410-2 ####[facility] [id number] [place] [address] [place] WBC (Bld) [#/Vol] 9.16 10*3/uL Normal 3.70-11.00 [facility] Comment on above: Order Comment: Speci men Type: BLOOD SPECIMENOrdering Facility: [facility] Address: [address] [place] [address] Performed By: #### 5 8410-2 ####[facility] [id number] [place] [address] [place] CONSULT PROGon 12-02-2022 CONSULT PROG Normal [facility] ECG COMPLETEon 12-02-2022 ECG COMPLETE Normal [facility] Magnesium SerPl-mCncon 12-02 Magnesium [Mass/Vol] 1.8 mg/dL Normal 1.7-2.3 [facility] Comment on above: Order Comment: Speci men Type: BLOOD SPECIMENOrdering Facility: [facility] Address: [address] [place] [address] Performed By: #### 1 9123-9, 2777-1, 65990-4 ####[facility] [id number] [place] [address] [place] Phosphate SerPl-mCnc 12-02 Phosphate [Mass/Vol] 2.7 mg/dL Normal 2.7-4.8 [facility] Comment on above: Order Comment: Speci men Type: BLOOD SPECIMENOrdering Facility: [facility] Address: [address] [place] [address] Performed By: #### 1 9123-9, 2777-1, 64945-7 ####[facility] [id number] [place] [address] [place] THERAPY NTon 12-02-2022 THERAPY NT Normal [facility] Basic metabolic 2000 panelon 12-01-2022 Anion gap [Moles/Vol] 10 mmol/L Normal - [facility] Comment on above: Order Comment: Speci men Type: BLOOD SPECIMENOrdering Facility: [facility] Address: [address] Performed By: #### 2 4321-2 ####[facility] [id number] [place] [address] [place] Anion gap [Moles/Vol] 7 mmol/L Low 9- [facility] Comment on above: Order Comment: Speci men Type: BLOOD SPECIMENOrdering Facility: [facility] Address: [address] [place] [address] Performed By: #### 2 4321-2, 2776-10, ####[facility] [id number] [place] [id number] [place] Calcium [Mass/Vol] 8.8 mg/dL Normal 8.5-10.2 [facility] Comment on above: Order Comment: Speci men Type: BLOOD SPECIMENOrdering Facility: [facility] Address: [address] Performed By: #### 2 4321-2 ####[facility] [id number] [place] [address] [place] Calcium [Mass/Vol] 8.9 mg/dL Normal 8.5-10.2 [facility] Comment on above: Order Comment: Speci men Type: BLOOD SPECIMENOrdering Facility: [facility] Address: [address] [place] [address] Performed By: #### 2 4321-2, 2776-10, ####[facility] [id number] [place] [address] [place] Chloride [Moles/Vol] 103 mmol/L Normal 97-105 [facility] Comment on above: Order Comment: Speci men Type: BLOOD SPECIMENOrdering Facility: [facility] Address: [address] [place] [address] Performed By: #### 2 4321-2 ####[facility] [id number] [place] [id number] [place] Chloride [Moles/Vol] 104 mmol/L Normal 97-105 [facility] Comment on above: Order Comment: Speci men Type: BLOOD SPECIMENOrdering Facility: [facility] Address: [address] [place] [address] Performed By: #### 2 4321-2, 2776-10, ####[facility] [id number] [facility] [place] [address] [place] CO2 [Moles/Vol] 25 mmol/L Normal 22-30 [facility] Comment on above: Order Comment: Speci men Type: BLOOD SPECIMENOrdering Facility: [facility] Address: [address] [place] [address] Performed By: #### 2 4321-2 ####[facility] [id number] [address] [place] Performed By: #### 2 4321-2, 2776-10, ####[facility] [id number] [address] [place] Creatinine [Mass/Vol] 0.93 mg/dL Normal 0.73-1.22 [facility] Comment on above: Order Comment: Speci men Type: BLOOD SPECIMENOrdering Facility: [facility] Address: [address] Performed By: #### 2 1-2 ####[facility] [id number] [address] Performed By: #### 2 4321-2, 2776-10, ####[facility] LABIA [id number] [place] [id number] [facility] [place] ESTIMATED GLOMERULAR FILTRATION RATE 92 mL/min/1.73m??? Normal >=60 [facility] Comment on above: Order Comment: Speci men Type: BLOOD SPECIMENOrdering Facility: [facility] Address: [address] Result Comment: Karina mated Glomerular Filtration [...] actual GFR. Performed By: #### 2 4321-2 ####[facility] [id number] [address] [address] [place] Performed By: #### 2 4321-2, 2776-, ####[facility] [id number] [address] [address] [place] Glucose [Mass/Vol] 81 mg/dL Normal 74-99 [facility] Comment on above: Order Comment: Speci men Type: BLOOD SPECIMENOrdering Facility: [facility] Address: [address] [place] [address] Result Comment: The Canadian Diabetes Association (ADA) provides guidance for cutoff [...] Standards of Medical Care in Diabetes 2016, Canadian Diabetes Association. Diabetes Care. 2016.39(Suppl 1). Performed By: #### 2 4321-2 ####[facility] [id number] [address] [address] [place] Performed By: #### 2 4321-2, 2776-, ####[facility] [id number] [address] [address] [place] Potassium [Moles/Vol] 4.2 mmol/L Normal 3.7-5.1 [facility] Comment on above: Order Comment: Speci men Type: BLOOD SPECIMENOrdering Facility: [facility] Address: [address] Performed By: #### 2 4321-2 ####[facility] [id number] [place] [address] [place] Potassium [Moles/Vol] 4.3 mmol/L Normal 3.7-5.1 [facility] Comment on above: Order Comment: Speci men Type: BLOOD SPECIMENOrdering Facility: [facility] Address: [address] Performed By: #### 2 4321-2, 2776-10, ####[facility] [id number] [place] [address] [place] Sodium [Moles/Vol] 138 mmol/L Normal 136-144 [facility] Comment on above: Order Comment: Speci men Type: BLOOD SPECIMENOrdering Facility: [facility] Address: [address] [place] [address] Performed By: #### 2 4321-2 ####[facility] [id number] [place] [address] [place] Sodium [Moles/Vol] 136 mmol/L Normal 136-144 [facility] Comment on above: Order Comment: Speci men Type: BLOOD SPECIMENOrdering Facility: [facility] Address: [address] Performed By: #### 2 4321-2, 2776-10, ####[facility] [id number] [place] [address] [place] Urea nitrogen [Mass/Vol] 34 mg/dL High 9-24 [facility] Comment on above: Order Comment: Speci men Type: BLOOD SPECIMENOrdering Facility: [facility] Address: [address] Performed By: #### 2 4321-2 ####[facility] [id number] [place] [address] [place] Urea nitrogen [Mass/Vol] 35 mg/dL High 9-24 [facility] Comment on above: Order Comment: Speci men Type: BLOOD SPECIMENOrdering Facility: [facility] Address: [address] [place] [address] Performed By: #### 2 4321-2, 2777-1, 80610-2 ####[facility] [id number] [place] [address] [place] CBC panel Auto (Bld)on 12-01 Erythrocyte distribution width (RBC) [Ratio] 16.6 % High 11.5-15.0 [facility] Comment on above: Order Comment: Speci men Type: BLOOD SPECIMENOrdering Facility: [facility] Address: [address] [place] [address] Performed By: #### 5 8410-2 ####[facility] LABIA [id number] [place] [address] [place] Hematocrit (Bld) [Volume fraction] 38.1 % Low 39.0-51.0 [facility] Comment on above: Order Comment: Speci men Type: BLOOD SPECIMENOrdering Facility: [facility] Address: [address] [place], [place] [address] Performed By: #### 5 8410-2 ####[facility] [id number] [place] [address] [place] Hemoglobin (Bld) [Mass/Vol] 12.5 g/dL Low 13.0-17.0 [facility] Comment on above: Order Comment: Speci men Type: BLOOD SPECIMENOrdering Facility: [facility] Address: [address] [place], [place] [address] Performed By: #### 5 8410-2 ####[facility] [id number] [address] STATES OF [facility] MCH (RBC) [Entitic mass] 28.1 pg Normal 26.0-34.0 [facility] Comment on above: Order Comment: Speci men Type: BLOOD SPECIMENOrdering Facility: [facility] Address: [address] [place] [address] Performed By: #### 5 8410-2 ####[facility] [id number] [address] MCHC (RBC) [Mass/Vol] 32.8 g/dL Normal 30.5-36.0 [facility] Comment on above: Order Comment: Speci men Type: BLOOD SPECIMENOrdering Facility: [facility] Address: [address] [place] [address] Performed By: #### 5 8410-2 ####[facility]IA [id number] [address] [place] MCV (RBC) [Entitic vol] 85.6 fL Normal 80.0-100.0 [facility] Comment on above: Order Comment: Speci men Type: BLOOD SPECIMENOrdering Facility: [facility] Address: [address] [place] [address] Performed By: #### 5 8410-2 ####[facility]IA [id number] [address] [place] Nucleated RBC (Bld) [#/Vol] 10*3/uL Normal <0.01 [facility] Comment on above: Order Comment: Speci men Type: BLOOD SPECIMENOrdering Facility: [facility] Address: [address] [place] [address] Performed By: #### 5 8410-2 ####[facility] [id number] [address] [place] Platelet mean volume (Bld) [Entitic vol] 12.5 fL Normal 9.0-12.7 [facility] Comment on above: Order Comment: Speci men Type: BLOOD SPECIMENOrdering Facility: [facility] Address: [address] [place] [address] Performed By: #### 5 8410-2 ####[facility] [id number] [place] [address] [place] Platelets (Bld) [#/Vol] 121 10*3/uL Low 150-400 [facility] Comment on above: Order Comment: Speci men Type: BLOOD SPECIMENOrdering Facility: [facility] Address: [address] [place] [address] Result Comment: Resu lts checked and verified.No clot detected. Performed By: #### 5 8410-2 ####[facility] [id number] [place] [address] [place] RBC (Bld) [#/Vol] 4.45 10*6/uL Normal 4.20-6.00 [facility] Comment on above: Order Comment: Speci men Type: BLOOD SPECIMENOrdering Facility: [facility] Address: [address] [place], [place] [address] Performed By: #### 5 8410-2 ####[facility] [id number] [place] [address] [place] WBC (Bld) [#/Vol] 9.67 10*3/uL Normal 3.70-11.00 [facility] Comment on above: Order Comment: Speci men Type: BLOOD SPECIMENOrdering Facility: [facility] Address: [address] [place], [place] [address] Performed By: #### 5 8410-2 ####[facility] [id number] [place] [id number] [place] CONSULTon 12-01-2022 CONSULT Normal [facility] ECG COMPLETEon 12-01-2022 ECG COMPLETE Normal [facility] HISTORY PHYSICALon HISTORY PHYSICAL Normal [facility] Magnesium SerPl-ncon 12-01 Magnesium [Mass/Vol] 2.0 mg/dL Normal 1.7-2.3 [facility] Comment on above: Order Comment: Speci men Type: BLOOD SPECIMENOrdering Facility: [facility] Address: [address] [place] [address] Performed By: #### 2 4321-2, 2777-1, ####[facility] [id number] [place] [id number] [place] NUTRITIONon 12-01-2022 NUTRITION Normal [facility] Phosphate SerPl-ncon 12-01 Phosphate [Mass/Vol] 2.3 mg/dL Low 2.7-4.8 [facility] Comment on above: Order Comment: Speci men Type: BLOOD SPECIMENOrdering Facility: [facility] Address: [address] [place] [address] Performed By: #### 2 4321-2, 2777-1, ####[facility]CL[facility] [id number] [place] [address] [place] SEPSIS LACTATEon 12-01-2022 Lactate [Moles/Vol] 0.9 mmol/L Normal <=2.0 [facility] Comment on above: Order Comment: Speci men Type: BLOOD SPECIMENOrdering Facility: [facility] Address: [address] [place] [address] Performed By: #### S LACT ####[facility] [id number] [place] [address] [place] THERAPY NTon 12-01-2022 THERAPY NT Normal [facility] US KIDNEY/BLADDERon 12-01-19 US KIDNEY/BLADDER Normal [facility] US LEG VEIN DVT [facility] VAS LABo n 12-01-2022 US LEG VEIN DVT [facility] Normal [facility] Bacteria Bld Culton 11-30-19 23 Bacteria identified Cx Nom (Bld) CULTURE, BLOOD: No growth 5 days Normal [facility] Comment on above: Performed By: #### 6 00-7 ####[facility] [id number] [address] [address] [place] Basic metabolic 2000 panelon 11-30-2022 Anion gap [Moles/Vol] 9 mmol/L Normal 9-18 [facility] Comment on above: Order Comment: Speci men Type: BLOOD SPECIMENOrdering Facility: [facility] Address: [address] [place] [address] Performed By: #### 2 777-1, 15616-9, ####[facility] [id number] [place] [address] [place] Calcium [Mass/Vol] 8.7 mg/dL Normal 8.5-10.2 [facility] Comment on above: Order Comment: Speci men Type: BLOOD SPECIMENOrdering Facility: [facility] Address: [address] [place] [address] Performed By: #### 2 777-1, 14497-6, ####[facility] [id number] [place] [address] [place] Chloride [Moles/Vol] 106 mmol/L High 97-105 [facility] Comment on above: Order Comment: Speci men Type: BLOOD SPECIMENOrdering Facility: [facility] Address: [address] [place] [id number] Performed By: #### 2 777-1, 53255-6, ####[facility] LABIA [id number] [address] [address] [place] CO2 [Moles/Vol] 22 mmol/L Normal 22-30 [facility] Comment on above: Order Comment: Speci men Type: BLOOD SPECIMENOrdering Facility: [facility] Address: [address] [place] [phone] Performed By: #### 2 777-1, 89695-7, ####[facility] LABIA [id number] [place] [address] [place] Creatinine [Mass/Vol] 0.96 mg/dL Normal 0.73-1.22 [facility] Comment on above: Order Comment: Speci men Type: BLOOD SPECIMENOrdering Facility: [facility] Address: [address] Performed By: #### 2 777-1, 71617-3, ####[facility] [id number] [place] [address] [place] ESTIMATED GLOMERULAR FILTRATION RATE 88 mL/min/1.73m??? Normal >=60 [facility] Comment on above: Order Comment: Speci men Type: BLOOD SPECIMENOrdering Facility: [facility] Address: [address] Result Comment: Karina mated Glomerular Filtration [...] actual GFR. Performed By: #### 2 777-1, 16365-0, ####[facility] LABIA [id number] [place] [id number] [place] Glucose [Mass/Vol] 109 mg/dL High 74-99 [facility] Comment on above: Order Comment: Speci men Type: BLOOD SPECIMENOrdering Facility: [facility] Address: [address] Result Comment: The Canadian Diabetes Association (ADA) provides guidance for cutoff [...] Standards of Medical Care in Diabetes 2016, [place] Diabetes Association. Diabetes Care. 2016.39(Suppl 1). Performed By: #### 2 777-1, 12273-0, ####[facility] LABIA [id number] [place] [address] [place] Potassium [Moles/Vol] 4.3 mmol/L Normal 3.7-5.1 [facility] Comment on above: Order Comment: Speci men Type: BLOOD SPECIMENOrdering Facility: [facility] Address: [address] [place] [address] Performed By: #### 2 777-1, , ####[facility]IA [id number] [place] [address] [place] Sodium [Moles/Vol] 137 mmol/L Normal 136-144 [facility] Comment on above: Order Comment: Speci men Type: BLOOD SPECIMENOrdering Facility: [facility] Address: [address] [place] [address] Performed By: #### 2 777-1, , ####[facility]IA [id number] [place] [address] [place] Urea nitrogen [Mass/Vol] 36 mg/dL High 9-24 [facility] Comment on above: Order Comment: Speci men Type: BLOOD SPECIMENOrdering Facility: [facility] Address: [address] [place] [address] Performed By: #### 2 777-1, , ####[facility]IA [id number] [place] [address] [place] CBC panel Auto (Bld)on 11-30 Erythrocyte distribution width (RBC) [Ratio] 17.2 % High 11.5-15.0 [facility] Comment on above: Order Comment: Speci men Type: BLOOD SPECIMENOrdering Facility: [facility] Address: [address] [place] [address] Performed By: #### 5 8410-2 ####[facility]IA [id number] [place] [address] [place] Hematocrit (Bld) [Volume fraction] 36.4 % Low 39.0-51.0 [facility] Comment on above: Order Comment: Speci men Type: BLOOD SPECIMENOrdering Facility: [facility] Address: [address] [place] [address] Performed By: #### 5 8410-2 ####[facility] [id number] [place] [address] [place] Hemoglobin (Bld) [Mass/Vol] 11.7 g/dL Low 13.0-17.0 [facility] Comment on above: Order Comment: Speci men Type: BLOOD SPECIMENOrdering Facility: [facility] Address: [address] [place] [address] Performed By: #### 5 8410-2 ####[facility]IA [id number] [place] [address] [place] MCH (RBC) [Entitic mass] 27.9 pg Normal 26.0-34.0 [facility] Comment on above: Order Comment: Speci men Type: BLOOD SPECIMENOrdering Facility: [facility] Address: [address] [place] [address] Performed By: #### 5 8410-2 ####[facility]IA [id number] [address] [place] MCHC (RBC) [Mass/Vol] 32.1 g/dL Normal 30.5-36.0 [facility] Comment on above: Order Comment: Speci men Type: BLOOD SPECIMENOrdering Facility: [facility] Address: [address] [place] [address] Performed By: #### 5 8410-2 ####[facility]IA [id number] [place] [address] [place] MCV (RBC) [Entitic vol] 86.9 fL Normal 80.0-100.0 [facility] Comment on above: Order Comment: Speci men Type: BLOOD SPECIMENOrdering Facility: [facility] Address: [address] [place] [address] Performed By: #### 5 8410-2 ####[facility]IA [id number] [place] [address] [place] Nucleated RBC (Bld) [#/Vol] 10*3/uL Normal <0.01 [facility] Comment on above: Order Comment: Speci men Type: BLOOD SPECIMENOrdering Facility: [facility] Address: [address] [place] [address] Performed By: #### 5 8410-2 ####[facility]IA [id number] [place] [address] [place] Platelet mean volume (Bld) [Entitic vol] Normal [facility] Comment on above: Order Comment: Speci men Type: BLOOD SPECIMENOrdering Facility: [facility] Address: [address] [place] [address] Result Comment: Unab le to Report. Performed By: #### 5 8410-2 ####[facility] [id number] [place] [address] [place] Platelets (Bld) [#/Vol] 103 10*3/uL Low 150-400 [facility] Comment on above: Order Comment: Speci men Type: BLOOD SPECIMENOrdering Facility: [facility] Address: [address] [place], [place] [address] Result Comment: No c lot detected.Results checked and verified. Performed By: #### 5 8410-2 ####[facility] [id number] [place] [address] [place] RBC (Bld) [#/Vol] 4.19 10*6/uL Low 4.20-6.00 [facility] Comment on above: Order Comment: Speci men Type: BLOOD SPECIMENOrdering Facility: [facility] Address: [address] [place] [address] Performed By: #### 5 8410-2 ####[facility] [id number] [place] [address] [place] WBC (Bld) [#/Vol] 9.45 10*3/uL Normal 3.70-11.00 [facility] Comment on above: Order Comment: Speci men Type: BLOOD SPECIMENOrdering Facility: [facility] Address: [address] [place] [address] Performed By: #### 5 8410-2 ####[facility] [id number] [place] [address] [place] ECG COMPLETEon 11-30-2022 ECG COMPLETE Normal [facility] Magnesium SerPl-mCncon 11-30 Magnesium [Mass/Vol] 2.1 mg/dL Normal 1.7-2.3 [facility] Comment on above: Order Comment: Speci men Type: BLOOD SPECIMENOrdering Facility: [facility] Address: [address] [place], [place] [address] Performed By: #### 2 777-1, 67903-1, 59473-9 ####[facility] [id number] [place] [address] [place] Phosphate SerPl-mCncon 11-30 Phosphate [Mass/Vol] 2.8 mg/dL Normal 2.7-4.8 [facility] Comment on above: Order Comment: Speci men Type: BLOOD SPECIMENOrdering Facility: [facility] Address: [address] [place] [address] Performed By: #### 2 777-1, 47025-7, 76374-6 ####[facility] [id number] [place] [address] [place] Ammonia Plas-sCncon 11-29-19 23 Ammonia (P) [Moles/Vol] 22 umol/L Normal 16-60 [facility] Comment on above: Order Comment: Speci men Type: BLOOD SPECIMENOrdering Facility: [facility] Address: [address] [place] [address] Result Comment: Resu lt may be falsely increased due to the fact that the sample was not received on ice. Performed By: #### 1 6362-6 ####[facility] [id number] [place] [address] [place] Basic metabolic 2000 panelon 11-29-2022 Anion gap [Moles/Vol] 7 mmol/L Low 9-18 [facility] Comment on above: Order Comment: Speci men Type: BLOOD SPECIMENOrdering Facility: [facility] Address: [address] [place] [address] Performed By: #### 1 9123-9, 2157-6, LIPNF, 99783-4, 3016-3, 2777-1, 3024-7 ####[facility] [id number] [place] [address] [place] Calcium [Mass/Vol] 8.7 mg/dL Normal 8.5-10.2 [facility] Comment on above: Order Comment: Speci men Type: BLOOD SPECIMENOrdering Facility: [facility] Address: [address] [place] [address] Performed By: #### 1 9122-9, 2156-6, LIPNF, 09134-6, 3016-3, 2776-1, 7 ####[facility] [id number] [address] [address] [place] Chloride [Moles/Vol] 111 mmol/L High 97-105 [facility] Comment on above: Order Comment: Speci men Type: BLOOD SPECIMENOrdering Facility: [facility] Address: [address] [place] [address] Performed By: #### 1 9122-9, 2156-6, LIPNF, 45495-9, 3015-3, 2776-1, 3024-04 ####[facility] [id number] [place] [address] [place] CO2 [Moles/Vol] 23 mmol/L Normal 22-30 [facility] Comment on above: Order Comment: Speci men Type: BLOOD SPECIMENOrdering Facility: [facility] Address: [address] Performed By: #### 1 9122-9, 6, LIPNF, 32590-8, 3015-3, 2776-, 3024-04 ####[facility] [id number] [place] [address] [place] Creatinine [Mass/Vol] 1.08 mg/dL Normal 0.73-1.22 [facility] Comment on above: Order Comment: Speci men Type: BLOOD SPECIMENOrdering Facility: [facility] Address: [address] Performed By: #### 1 23-9, 6, LIPNF, 18179-0, 6-3, 2776-1, 3024-04 ####[facility] [id number] [place] [id number] [place] ESTIMATED GLOMERULAR FILTRATION RATE 77 mL/min/1.73m??? Normal >=60 [facility] Comment on above: Order Comment: Chaz trevizo Type: BLOOD SPECIMENOrdering Facility: [facility] Address: [address] [place] [id number] Result Comment: Karina mated Glomerular Filtration Rate [...] Performed By: #### 1 9123-9, 7-6, LIPNF, 80132-1, 3016-3, 2777-1, 3024-7 ####[facility] [id number] [address] [address] [place] Glucose [Mass/Vol] 94 mg/dL Normal 74-99 [facility] Comment on above: Order Comment: Chaz trevizo Type: BLOOD SPECIMENOrdering Facility: [facility] Address: [place] [address] Result Comment: The [place] Diabetes Association (ADA) provides guidance for cutoff [...] Standards of Medical Care in Diabetes 2016, [employer] Diabetes Association. Diabetes Care. 2016.39(Suppl 1). Performed By: #### 1 9123-9, 2157-6, LIPNF, 41217-6, 3016-3, 2777-1, 3024-7 ####[facility] [id number] [address] [address] [place] Potassium [Moles/Vol] 4.2 mmol/L Normal 3.7-5.1 [facility] Comment on above: Order Comment: Speci men Type: BLOOD SPECIMENOrdering Facility: [facility] Address: [address] [place] [address] Performed By: #### 1 9123-9, 2156-6, LIPNF, 18768-6, 3016-3, 2777-1, 302-7 ####[facility] [id number] [place] [address] [place] Sodium [Moles/Vol] 141 mmol/L Normal 136-144 [facility] Comment on above: Order Comment: Speci men Type: BLOOD SPECIMENOrdering Facility: [facility] Address: [address] [place] [address] Performed By: #### 1 9123-9, 6, LIPNF, 50623-2, 6-3, 2777-1, 3023-7 ####[facility] [id number] [place] [address] [place] Urea nitrogen [Mass/Vol] 38 mg/dL High 9-24 [facility] Comment on above: Order Comment: Speci men Type: BLOOD SPECIMENOrdering Facility: [facility] Address: [address] [place], [place] [address] Performed By: #### 1 9123-9, 6, LIPNF, 47034-9, 3016-3, 2777-1, 302-7 ####[facility] [id number] [place] [address] [place] CBC panel Auto (Bld)on 11-29 Erythrocyte distribution width (RBC) [Ratio] 17.2 % High 11.5-15.0 [facility] Comment on above: Order Comment: Speci men Type: BLOOD SPECIMENOrdering Facility: [facility] Address: [address] [place] [address] Performed By: #### 5 8410-2 ####[facility] [id number] [place] [address] [place] Hematocrit (Bld) [Volume fraction] 33.5 % Low 39.0-51.0 [facility] Comment on above: Order Comment: Speci men Type: BLOOD SPECIMENOrdering Facility: [facility] Address: [address] [place], [place] [address] Performed By: #### 5 8410-2 ####[facility] [id number] [place] [address] [place] Hemoglobin (Bld) [Mass/Vol] 11.1 g/dL Low 13.0-17.0 [facility] Comment on above: Order Comment: Speci men Type: BLOOD SPECIMENOrdering Facility: [facility] Address: [address] [place], [place] [address] Performed By: #### 5 8410-2 ####[facility] [id number] [place] [address] [place] MCH (RBC) [Entitic mass] 27.8 pg Normal 26.0-34.0 [facility] Comment on above: Order Comment: Speci men Type: BLOOD SPECIMENOrdering Facility: [facility] Address: [address] [place], [place] [address] Performed By: #### 5 8410-2 ####[facility] [id number] [address] [place] MCHC (RBC) [Mass/Vol] 33.1 g/dL Normal 30.5-36.0 [facility] Comment on above: Order Comment: Speci men Type: BLOOD SPECIMENOrdering Facility: [facility] Address: [address] [place], [place] [address] Performed By: #### 5 8410-2 ####[facility] [id number] [address] [place] MCV (RBC) [Entitic vol] 83.8 fL Normal 80.0-100.0 [facility] Comment on above: Order Comment: Speci men Type: BLOOD SPECIMENOrdering Facility: [facility] Address: [address] [place] [address] Performed By: #### 5 8410-2 ####[facility] [id number] [place] [address] [place] Nucleated RBC (Bld) [#/Vol] 10*3/uL Normal <0.01 [facility] Comment on above: Order Comment: Speci men Type: BLOOD SPECIMENOrdering Facility: [facility] Address: [address] [place] [address] Performed By: #### 5 8410-2 ####[facility] [id number] [place] [address] [place] Platelet mean volume (Bld) [Entitic vol] 12.8 fL High 9.0-12.7 [facility] Comment on above: Order Comment: Speci men Type: BLOOD SPECIMENOrdering Facility: [facility] Address: [address] [place] [address] Performed By: #### 5 8410-2 ####[facility] [id number] [place] [address] [place] Platelets (Bld) [#/Vol] 101 10*3/uL Low 150-400 [facility] Comment on above: Order Comment: Speci men Type: BLOOD SPECIMENOrdering Facility: [facility] Address: [address] [place] [address] Result Comment: Resu lts checked and verified.No clot detected. Performed By: #### 5 8410-2 ####[facility] LABCL[facility] [id number] [place] [address] [place] RBC (Bld) [#/Vol] 4.00 10*6/uL Low 4.20-6.00 [facility] Comment on above: Order Comment: Speci men Type: BLOOD SPECIMENOrdering Facility: [facility] Address: [place] [address] Performed By: #### 5 8410-2 ####[facility]CL[facility] [id number] [place] [address] [place] WBC (Bld) [#/Vol] 11.59 10*3/uL High 3.70-11.00 [facility] Comment on above: Order Comment: Speci men Type: BLOOD SPECIMENOrdering Facility: [facility] Address: [address] [place] [address] Performed By: #### 5 8410-2 ####[facility]CL[facility] [id number] [place] [address] [place] CK SerPl-cCncon 11-29-2022 CK [Catalytic activity/Vol] 21 U/L Low 51-298 [facility] Comment on above: Order Comment: Speci men Type: BLOOD SPECIMENOrdering Facility: [facility] Address: [address] [place] [address] Performed By: #### 1 9123-9, 2157-6, LIPNF, 45146-7, 3016-3, 2777-1, 3024-7 ####[facility] [id number] [place] [address] [place] BRAIN WO IVCONon 11-29-[address] BRAIN WO IVCON Normal [facility] ECG COMPLETEon 11-29-2022 ECG COMPLETE Normal [facility] Gas and Carbon monoxide pane l (BldV)on 11-29-2022 BASE DEFICIT, VENOUS -2 mmol/L Normal -2-0 [facility] Comment on above: Order Comment: Speci men Type: VENOUS BLOOD SPECIMENOrdering Facility: [facility] Address: [address] [place] [address] Performed By: #### 2 4344-4 ####[facility] [id number] [place] [address] [place] Body temperature 98.6 [degF] Normal [facility] Comment on above: Order Comment: Speci men Type: VENOUS BLOOD SPECIMENOrdering Facility: [facility] Address: [address] [place] [address] Performed By: #### 2 4344-4 ####[facility] [id number] [place] [address] [place] Calcium.ionized (Bld) [Mass/Vol] 1.22 mmol/L Normal 1.08-1.30 [facility] Comment on above: Order Comment: Speci men Type: VENOUS BLOOD SPECIMENOrdering Facility: [facility] Address: [address] [place] [address] Performed By: #### 2 4344-4 ####[facility] [id number] [address] [place] Calcium.ionized adjusted to pH 7.4 (BldA) [Moles/Vol] 1.21 mmol/L Normal 1.08-1.30 [facility] Comment on above: Order Comment: Speci men Type: VENOUS BLOOD SPECIMENOrdering Facility: [facility] Address: [address] [place] [address] Performed By: #### 2 4344-4 ####[facility] [id number] [place] [address] [place] Carboxyhemoglobin (BldV) [Mass fraction] 0.4 % Normal 0.0-2.0 [facility] Comment on above: Order Comment: Speci men Type: VENOUS BLOOD SPECIMENOrdering Facility: [facility] Address: [address] Result Comment: Carb oxyhemoglobin Reference Range for Smokers: 2.0-8.0% Performed By: #### 2 4344-4 ####[facility] LABCL[facility] [id number] [place] [address] [place] CO2 (BldV) [Partial pressure] 39 mm[Hg] Low 42-55 [facility] Comment on above: Order Comment: Speci men Type: VENOUS BLOOD SPECIMENOrdering Facility: [facility] Address: [address] [place] [address] Performed By: #### 2 4344-4 ####[facility] [id number] [place] [address] [place] CO2 [Moles/Vol] 23 mmol/L Low 25-29 [facility] Comment on above: Order Comment: Speci men Type: VENOUS BLOOD SPECIMENOrdering Facility: [facility] Address: [address] [place] [address] Performed By: #### 2 4344-4 ####[facility] [id number] [place] [address] [place] Glucose [Mass/Vol] 155 mg/dL High 60-105 [facility] Comment on above: Order Comment: Speci men Type: VENOUS BLOOD SPECIMENOrdering Facility: [facility] Address: [address] [place] [address] Performed By: #### 2 4344-4 ####[facility] [id number] [place] [address] [place] HCO3 (Bld) [Moles/Vol] 22 mmol/L Low 24-28 [facility] Comment on above: Order Comment: Speci men Type: VENOUS BLOOD SPECIMENOrdering Facility: [facility] Address: [address] [place] [address] Performed By: #### 2 4344-4 ####[facility] [id number] [place] [address] [place] Hematocrit (Bld) [Volume fraction] 36.7 % Low 39.0-51.0 [facility] Comment on above: Order Comment: Speci men Type: VENOUS BLOOD SPECIMENOrdering Facility: [facility] Address: [address] [place] [address] Performed By: #### 2 4344-4 ####[facility]CL[facility] [id number] [place] [address] [place] Hemoglobin (Bld) [Mass/Vol] 11.9 g/dL Low 13.0-17.0 [facility] Comment on above: Order Comment: Speci men Type: VENOUS BLOOD SPECIMENOrdering Facility: [facility] Address: [address] [place] [address] Performed By: #### 2 4344-4 ####[facility] [id number] [place] [address] [place] Lactate [Moles/Vol] 1.9 mmol/L Normal 0.5-2.2 [facility] Comment on above: Order Comment: Speci men Type: VENOUS BLOOD SPECIMENOrdering Facility: [facility] Address: [address] [place] [address] Performed By: #### 2 4344-4 ####[facility] [id number] [place] [address] [place] LITERS 2 Liters/min Normal [facility] Comment on above: Order Comment: Speci men Type: VENOUS BLOOD SPECIMENOrdering Facility: [facility] Address: [address] Performed By: #### 2 4344-4 ####[facility] [id number] [place] [address] [place] Methemoglobin (Bld) [Mass fraction] 1.6 % High 0.0-1.5 [facility] Comment on above: Order Comment: Speci men Type: VENOUS BLOOD SPECIMENOrdering Facility: [facility] Address: [address] Performed By: #### 2 4344-4 ####[facility]CL[facility] [id number] [address] [place] O2 THERAPY NC = Nasal Cannula Normal [facility] Comment on above: Order Comment: Speci men Type: VENOUS BLOOD SPECIMENOrdering Facility: [facility] Address: [address] [place], [place] [address] Performed By: #### 2 4344-4 ####[facility] [id number] [place] [address] [place] Oxygen (BldV) [Partial pressure] 104 mm[Hg] High 35-45 [facility] Comment on above: Order Comment: Speci men Type: VENOUS BLOOD SPECIMENOrdering Facility: [facility] Address: [address] [place], [place] [address] Performed By: #### 2 4344-4 ####[facility] [id number] [place] [address] [place] Oxygen saturation in Venous blood 97 % High 60-85 [facility] Comment on above: Order Comment: Speci men Type: VENOUS BLOOD SPECIMENOrdering Facility: [facility] Address: [address] [place] [address] Performed By: #### 2 4344-4 ####[facility] [id number] [place] [address] [place] Oxyhemoglobin (BldV) [Mass fraction] 95 % High 60-85 [facility] Comment on above: Order Comment: Speci men Type: VENOUS BLOOD SPECIMENOrdering Facility: [facility] Address: [address] [place] [address] Performed By: #### 2 4344-4 ####[facility] [id number] [place] [address] [place] pH (BldV) 7.37 [pH] Normal 7.32-7.42 [facility] Comment on above: Order Comment: Speci men Type: VENOUS BLOOD SPECIMENOrdering Facility: [facility] Address: [address] [place] [address] Performed By: #### 2 4344-4 ####[facility]CL[facility] [id number] [place] [address] [place] Potassium [Moles/Vol] 4.1 mmol/L Normal 3.5-5.0 [facility] Comment on above: Order Comment: Speci men Type: VENOUS BLOOD SPECIMENOrdering Facility: [facility] Address: [address] [place] [address] Performed By: #### 2 4344-4 ####[facility] [id number] [place] [address] [place] Sodium [Moles/Vol] 135 mmol/L Low 136-144 [facility] Comment on above: Order Comment: Speci men Type: VENOUS BLOOD SPECIMENOrdering Facility: [facility] Address: [address] [place] [address] Performed By: #### 2 4344-4 ####[facility] [id number] [place] [address] [place] LIPID PANEL, NONFASTINGon Cholesterol [Mass/Vol] 79 mg/dL Normal <200 [facility] Comment on above: Order Comment: Speci men Type: BLOOD SPECIMENOrdering Facility: [facility] Address: [address] Result Comment: <200 mg/dL, Desirable 200-239 mg/dL, Borderline high>239 mg/dL, High Performed By: #### 1 9123-9, 2157-6, LIPNF, 19355-5, 3016-3, 2777-1, 3024-7 ####[facility] LABCL[facility] [id number] [place] [address] [place] HDL CHOLESTEROL, NF 15 mg/dL Low >39 [facility] Comment on above: Order Comment: Chaz trevizo Type: BLOOD SPECIMENOrdering Facility: [facility] Address: [address] [place] [address] Result Comment: 40-5 9 mg/dL, Acceptable>59 mg/dL, High: Negative risk factor for coronary heart disease<40 mg/dL, Low: Positive risk factor for coronary heart disease Performed By: #### 1 9123-9, 2156-6, LIPNF, 24903-4, 3016-3, 2777-1, 3024-7 ####[facility] [id number] [address] [facility] LDL CHOLESTEROL, NF 41 mg/dL Normal <100 [facility] Comment on above: Order Comment: Chaz trevizo Type: BLOOD SPECIMENOrdering Facility: [facility] Address: [address] [place] [address] Result Comment: <100 mg/dL, Optimal 100-129 mg/dL, Near optimal/above optimal 130-159 mg/dL, Borderline high 160-189 mg/dL, High>189 mg/dL, Very highSecondary prevention optimal LDL Cholesterol levels are recommended to be < 70 mg/dL Performed By: #### 1 9123-9, 6, LIPNF, 72876-5, 3016-3, 2777-1, 3024-7 ####[facility] [id number] [place] [address] [place] LDL/HDL RATIO, NF 2.73 mg/dL High <2.54 [facility] Comment on above: Order Comment: Princessisatu trevizo Type: BLOOD SPECIMENOrdering Facility: [facility] Address: [address] [place] [address] Result Comment: Refskyla quinonesce:1. National Cholesterol Education Program ATP III Guideline At-A-Glance Quick Desk Reference: National Heart, Lung, and Blood Upson. National Institutes of Health. 2001: NIH Publication No. 01-3305.2. An International Atherosclerosis Society position paper: global recommendations for the management of dyslipidemia: executive summary, Atherosclerosis. 2014: 232(2):410-413. Performed By: #### 1 9123-9, 2156-6, LIPNF, 01499-1, 3016-3, 2777-1, 3024-7 ####[facility] [id number] [place] [address] [place] NON HDL CHOL, NF 64 mg/dL Normal <130 [facility] Comment on above: Order Comment: Speci men Type: BLOOD SPECIMENOrdering Facility: [facility] Address: [address] [place] [address] Result Comment: <130 mg/dL, Optimal 130-159 mg/dL, Near optimal/above optimal 160-189 mg/dL, Borderline high 190-219 mg/dL, High>219 mg/dL, Very highSecondary prevention optimal non HDL Cholesterol levels are recommended to be <100 mg/dL Performed By: #### 1 9123-9, 6, LIPNF, 86467-5, 6-3, 7-1, 302-7 ####[facility] [id number] [place] [address] [place] T CHOL/HDL RATIO NF 5.27 mg/dL High <5.10 [facility] Comment on above: Order Comment: Speci men Type: BLOOD SPECIMENOrdering Facility: [facility] Address: [address] [place] [address] Performed By: #### 1 9123-9, 6, LIPNF, 07799-2, 6-3, 7-1, 302-7 ####[facility] [id number] [address] [place] TRIGLYCERIDES, NF 117 mg/dL Normal <150 [facility] Comment on above: Order Comment: Speci men Type: BLOOD SPECIMENOrdering Facility: [facility] Address: [address] [place] [address] Result Comment: <150 mg/dL, Normal 150-199 mg/dL, Borderline high 200-499 mg/dL, High>499 mg/dL, Very high Performed By: #### 1 23-9, 2156-6, LIPNF, 81518-1, 3016-3, 2776-1, 3024-04 ####[facility] [id number] [address] [address] [place] VLDL CHOLESTEROL, NF 23 mg/dL Normal <30 [facility] Comment on above: Order Comment: Speci men Type: BLOOD SPECIMENOrdering Facility: [facility] Address: [address] [place] [address] Performed By: #### 1 9122-9, 2157-03, LIPNF, 04651-1, 3015-3, 2776-10, 3024-04 ####[facility] [id number] [place] [address] [place] Magnesium SerPl-mCncon 11-29 Magnesium [Mass/Vol] 2.3 mg/dL Normal 1.7-2.3 [facility] Comment on above: Order Comment: Speci men Type: BLOOD SPECIMENOrdering Facility: [facility] Address: [address] [place] [address] Performed By: #### 1 9122-9, 2157-03, LIPNF, 43278-1, 3015-3, 2776-, 3024-04 ####[facility] [id number] [place] [address] [place] Phosphate SerPl-mCncon 11-29 Phosphate [Mass/Vol] 2.6 mg/dL Low 2.7-4.8 [facility] Comment on above: Order Comment: Speci men Type: BLOOD SPECIMENOrdering Facility: [facility] Address: [address] [place] [address] Performed By: #### 1 91-9, 6, LIPNF, 87490-9, 6-3, 2777-1, 302-7 ####[facility] [id number] [place] [id number] [place] T4 Free SerPl-mCncon 023 Free T4 [Mass/Vol] 0.6 ng/dL Low 0.9-1.7 [facility] Comment on above: Order Comment: Speci men Type: BLOOD SPECIMENOrdering Facility: [facility] Address: [address] [place] [address] Performed By: #### 1 9123-9, 2156-6, LIPNF, 07785-3, 3016-3, 2776-1, 3027 ####[facility] [id number] [place] [address] [place] TSH SerPl-aCncon 11-29-2022 TSH Qn 0.221 m[IU]/L Low 0.270-4.20 0 [facility] Comment on above: Order Comment: Speci men Type: BLOOD SPECIMENOrdering Facility: [facility] Address: [address] [place] [address] Performed By: #### 1 9123-9, 6, LIPNF, 61887-7, 3015-3, 2776-, 7 ####[facility] [id number] [place] [address] [place] Basic metabolic 2000 panelon 11-28-2022 Anion gap [Moles/Vol] 10 mmol/L Normal 9-18 [facility] Comment on above: Order Comment: Speci men Type: BLOOD SPECIMENOrdering Facility: [facility] Address: [address] Performed By: #### 2 4321-2, 2776-1, 74332-5 ####[facility] [id number] [place] [address] [place] Calcium [Mass/Vol] 8.6 mg/dL Normal 8.5-10.2 [facility] Comment on above: Order Comment: Speci men Type: BLOOD SPECIMENOrdering Facility: [facility] Address: [address] Performed By: #### 2 4321-2, 2776-10, ####[facility] [id number] [facility] [place] [address] [place] Chloride [Moles/Vol] 109 mmol/L High 97-105 [facility] Comment on above: Order Comment: Speci men Type: BLOOD SPECIMENOrdering Facility: [facility] Address: [address] [place], [place] [address] Performed By: #### 2 4321-2, 2776-10, ####[facility] [id number] [place] [address] [place] CO2 [Moles/Vol] 21 mmol/L Low 22-30 [facility] Comment on above: Order Comment: Speci men Type: BLOOD SPECIMENOrdering Facility: [facility] Address: [address] [place], [place] [address] Performed By: #### 2 4321-2, 2776-10, ####[facility] [id number] [place] [address] [place] Creatinine [Mass/Vol] 1.31 mg/dL High 0.73-1.22 [facility] Comment on above: Order Comment: Speci men Type: BLOOD SPECIMENOrdering Facility: [facility] Address: [address] Performed By: #### 2 4321-2, 2776-10, ####[facility] [id number] [address] [address] [place] ESTIMATED GLOMERULAR FILTRATION RATE 61 mL/min/1.73m??? Normal >=60 [facility] Comment on above: Order Comment: Speci men Type: BLOOD SPECIMENOrdering Facility: [facility] Address: [address] [place] [address] Result Comment: Karina mated Glomerular Filtration Rate [...] GFR. Performed By: #### 2 4321-2, 2777-, ####[facility] [id number] [place] [address] [place] Glucose [Mass/Vol] 113 mg/dL High 74-99 [facility] Comment on above: Order Comment: Chaz trevizo Type: BLOOD SPECIMENOrdering Facility: [facility] Address: [address] [place] [address] Result Comment: The [place] Diabetes Association (ADA) provides guidance for cutoff [...] Standards of Medical Care in Diabetes 2016, Canadian Diabetes Association. Diabetes Care. 2016.39(Suppl 1). Performed By: #### 2 4321-2, 2777-, ####[facility] [id number] [place] [id number] [place] Potassium [Moles/Vol] 4.9 mmol/L Normal 3.7-5.1 [facility] Comment on above: Order Comment: Chaz trevizo Type: BLOOD SPECIMENOrdering Facility: [facility] Address: [address] Performed By: #### 2 4321-2, 2777-1, ####[facility] [id number] [place] [address] [place] Sodium [Moles/Vol] 140 mmol/L Normal 136-144 [facility] Comment on above: Order Comment: Speci men Type: BLOOD SPECIMENOrdering Facility: [facility] Address: [address] [place] [address] Performed By: #### 2 4321-2, 2777-1, ####[facility] [id number] [place] [address] [place] Urea nitrogen [Mass/Vol] 38 mg/dL High 9-24 [facility] Comment on above: Order Comment: Speci men Type: BLOOD SPECIMENOrdering Facility: [facility] Address: [address] [place] [address] Performed By: #### 2 4321-2, 2777-, ####[facility] [id number] [place] [address] [place] CBC panel Auto (Bld)on 11-28 Erythrocyte distribution width (RBC) [Ratio] 17.4 % High 11.5-15.0 [facility] Comment on above: Order Comment: Speci men Type: BLOOD SPECIMENOrdering Facility: [facility] Address: [address] [place] [address] Performed By: #### 5 8410-2 ####[facility] [id number] [place] [address] [place] Hematocrit (Bld) [Volume fraction] 33.3 % Low 39.0-51.0 [facility] Comment on above: Order Comment: Speci men Type: BLOOD SPECIMENOrdering Facility: [facility] Address: [address] [place] [address] Performed By: #### 5 8410-2 ####[facility] [id number] [place] [address] [place] Hemoglobin (Bld) [Mass/Vol] 10.8 g/dL Low 13.0-17.0 [facility] Comment on above: Order Comment: Speci men Type: BLOOD SPECIMENOrdering Facility: [facility] Address: [address] [place] [address] Performed By: #### 5 8410-2 ####[facility] [id number] [place] [address] [place] MCH (RBC) [Entitic mass] 28.1 pg Normal 26.0-34.0 [facility] Comment on above: Order Comment: Speci men Type: BLOOD SPECIMENOrdering Facility: [facility] Address: [address] [place], [place] [address] Performed By: #### 5 8410-2 ####[facility] [id number] [place] [address] [place] MCHC (RBC) [Mass/Vol] 32.4 g/dL Normal 30.5-36.0 [facility] Comment on above: Order Comment: Speci men Type: BLOOD SPECIMENOrdering Facility: [facility] Address: [address] [place], [place] [address] Performed By: #### 5 8410-2 ####[facility] [id number] [place] [address] [place] MCV (RBC) [Entitic vol] 86.5 fL Normal 80.0-100.0 [facility] Comment on above: Order Comment: Speci men Type: BLOOD SPECIMENOrdering Facility: [facility] Address: [address] [place], [place] [address] Performed By: #### 5 8410-2 ####[facility] [id number] [place] [address] [place] Nucleated RBC (Bld) [#/Vol] 10*3/uL Normal <0.01 [facility] Comment on above: Order Comment: Speci men Type: BLOOD SPECIMENOrdering Facility: [facility] Address: [address] [place] [address] Performed By: #### 5 8410-2 ####[facility] [id number] [place] [address] [place] Platelet mean volume (Bld) [Entitic vol] 13.2 fL High 9.0-12.7 [facility] Comment on above: Order Comment: Speci men Type: BLOOD SPECIMENOrdering Facility: [facility] Address: [address] [place] [address] Performed By: #### 5 8410-2 ####[facility] [id number] [place] [address] [place] Platelets (Bld) [#/Vol] 76 10*3/uL Low 150-400 [facility] Comment on above: Order Comment: Speci men Type: BLOOD SPECIMENOrdering Facility: [facility] Address: [address] [place] [address] Result Comment: Resu lts checked and verified.No clot detected. Performed By: #### 5 8410-2 ####[facility] [id number] [place] [address] [place] RBC (Bld) [#/Vol] 3.85 10*6/uL Low 4.20-6.00 [facility] Comment on above: Order Comment: Speci men Type: BLOOD SPECIMENOrdering Facility: [facility] Address: [address] [place] [address] Performed By: #### 5 8410-2 ####[facility] [id number] [place] [address] [place] WBC (Bld) [#/Vol] 10.98 10*3/uL Normal 3.70-11.00 [facility] Comment on above: Order Comment: Speci men Type: BLOOD SPECIMENOrdering Facility: [facility] Address: [address] [place] [address] Performed By: #### 5 8410-2 ####[facility] LABCL[facility] [id number] [place] [address] [place] CONSULTon 11-28-2022 CONSULT Normal [facility] Magnesium SerPl-mCncon 11-28 Magnesium [Mass/Vol] 2.1 mg/dL Normal 1.7-2.3 [facility] Comment on above: Order Comment: Speci men Type: BLOOD SPECIMENOrdering Facility: [facility] Address: [address] [place] [address] Performed By: #### 2 4321-2, 2777-, ####[facility] [id number] [place] [address] [place] Phosphate SerPl-mCncon 11-28 Phosphate [Mass/Vol] 3.4 mg/dL Normal 2.7-4.8 [facility] Comment on above: Order Comment: Speci men Type: BLOOD SPECIMENOrdering Facility: [facility] Address: [address] [place], [place] [address] Performed By: #### 2 4321-2, 2777-, ####[facility] [id number] [place] [id number] [place] THERAPY NTon 11-28-2022 THERAPY NT Normal [facility] Basic metabolic 2000 panelon 11-27-2022 Anion gap [Moles/Vol] 13 mmol/L Normal 9-18 [facility] Comment on above: Order Comment: Speci men Type: BLOOD SPECIMENOrdering Facility: [facility] Address: [address] [place], [place] [address] Performed By: #### 2 4321-2 ####[facility] LABCLIA [id number] [facility] [place] [address] [place] Calcium [Mass/Vol] 8.3 mg/dL Low 8.5-10.2 [facility] Comment on above: Order Comment: Speci men Type: BLOOD SPECIMENOrdering Facility: [facility] Address: [address] [place], [place] [address] Performed By: #### 2 4321-2 ####[facility] LABCL[facility] [id number] [place] [address] [place] Chloride [Moles/Vol] 109 mmol/L High 97-105 [facility] Comment on above: Order Comment: Speci men Type: BLOOD SPECIMENOrdering Facility: [facility] Address: [address] Performed By: #### 2 4321-2 ####[facility] LABCL[facility] [id number] [place] [address] [place] CO2 [Moles/Vol] 18 mmol/L Low 22-30 [facility] Comment on above: Order Comment: Speci men Type: BLOOD SPECIMENOrdering Facility: [facility] Address: [address] [place] [address] Performed By: #### 2 4321-2 ####[facility]CL[facility] [id number] [place] [address] [place] Creatinine [Mass/Vol] 1.52 mg/dL High 0.73-1.22 [facility] Comment on above: Order Comment: Speci men Type: BLOOD SPECIMENOrdering Facility: [facility] Address: [address] Performed By: #### 2 4321-2 ####[facility]CL[facility] [id number] [place] [address] [place] ESTIMATED GLOMERULAR FILTRATION RATE 51 mL/min/1.73m??? Low >=60 [facility] Comment on above: Order Comment: Chaz trevizo Type: BLOOD SPECIMENOrdering Facility: [facility] Address: [address] [place] [address] Result Comment: Karina mated Glomerular Filtration Rate [...] actual GFR. Performed By: #### 2 4321-2 ####[facility] [id number] [place] [address] [place] Glucose [Mass/Vol] 154 mg/dL High 74-99 [facility] Comment on above: Order Comment: Chaz trevizo Type: BLOOD SPECIMENOrdering Facility: [facility] Address: [address] [place] [address] Result Comment: The Canadian Diabetes Association (ADA) provides guidance for cutoff [...] Standards of Medical Care in Diabetes 2016, Canadian Diabetes Association. Diabetes Care. 2016.39(Suppl 1). Performed By: #### 2 4321-2 ####[facility] [id number] [place] [address] [place] Potassium [Moles/Vol] 4.6 mmol/L Normal 3.7-5.1 [facility] Comment on above: Order Comment: Chaz trevizo Type: BLOOD SPECIMENOrdering Facility: [facility] Address: [address] Performed By: #### 2 4321-2 ####[facility] LABCLIA [id number] [place] [address] [place] Sodium [Moles/Vol] 140 mmol/L Normal 136-144 [facility] Comment on above: Order Comment: Speci men Type: BLOOD SPECIMENOrdering Facility: [facility] Address: [address] Performed By: #### 2 4321-2 ####[facility]CL[facility] [id number] [place] [address] [place] Urea nitrogen [Mass/Vol] 43 mg/dL High 9-24 [facility] Comment on above: Order Comment: Speci men Type: BLOOD SPECIMENOrdering Facility: [facility] Address: [address] [place], [place] [address] Performed By: #### 2 4321-2 ####[facility]CL[facility] [id number] [place] [address] [place] Anion gap [Moles/Vol] 14 mmol/L Normal 9-18 [facility] Comment on above: Order Comment: Speci men Type: BLOOD SPECIMENOrdering Facility: [facility] Address: [address] Performed By: #### 1 9123-9, 77068-1, 2777-1 ####[facility]CL[facility] [id number] [place] [address] [place] Calcium [Mass/Vol] 8.7 mg/dL Normal 8.5-10.2 [facility] Comment on above: Order Comment: Speci men Type: BLOOD SPECIMENOrdering Facility: [facility] Address: [address] Performed By: #### 1 9123-9, 07774-5, 2777-1 ####[facility]CL[facility] [id number] [place] [address] [place] Chloride [Moles/Vol] 109 mmol/L High 97-105 [facility] Comment on above: Order Comment: Speci men Type: BLOOD SPECIMENOrdering Facility: [facility] Address: [address] [place] [address] Performed By: #### 1 9123-9, 96976-8, 2777-1 ####[facility]CL[facility] [id number] [place] [address] [place] CO2 [Moles/Vol] 17 mmol/L Low 22-30 [facility] Comment on above: Order Comment: Speci men Type: BLOOD SPECIMENOrdering Facility: [facility] Address: [address] [place] [address] Performed By: #### 1 9123-9, 36989-5, 2777-1 ####[facility] [id number] [place] [address] [place] Creatinine [Mass/Vol] 1.75 mg/dL High 0.73-1.22 [facility] Comment on above: Order Comment: Speci men Type: BLOOD SPECIMENOrdering Facility: [facility] Address: [address] [place] [address] Performed By: #### 1 9123-9, 30423-3, 2777-1 ####[facility] [id number] [place] [address] [place] ESTIMATED GLOMERULAR FILTRATION RATE 43 mL/min/1.73m??? Low >=60 [facility] Comment on above: Order Comment: Speci men Type: BLOOD SPECIMENOrdering Facility: [facility] Address: [address] [place] [address] Result Comment: Karina mated Glomerular Filtration Rate [...] actual GFR. Performed By: #### 1 9123-9, 33695-4, 2776-10 ####[facility] LABCL[facility] [id number] [address] [address] [place] Glucose [Mass/Vol] 112 mg/dL High 74-99 [facility] Comment on above: Order Comment: Specisatu trevizo Type: BLOOD SPECIMENOrdering Facility: [facility] Address: [address] [place] [id number] Result Comment: The Canadian Diabetes Association (ADA) provides guidance for cutoff [...] Standards of Medical Care in Diabetes 2016, Canadian Diabetes Association. Diabetes Care. 2016.39(Suppl 1). Performed By: #### 1 9123-9, , 2776-10 ####[facility] LABCL[facility] [id number] [place] [id number] [place] Potassium [Moles/Vol] 5.4 mmol/L High 3.7-5.1 [facility] Comment on above: Order Comment: Chaz men Type: BLOOD SPECIMENOrdering Facility: [facility] Address: [address] [place] [address] Performed By: #### 1 9123-9, , 2776-10 ####[facility]CL[facility] [id number] [address] [address] [place] Sodium [Moles/Vol] 140 mmol/L Normal 136-144 [facility] Comment on above: Order Comment: Speci men Type: BLOOD SPECIMENOrdering Facility: [facility] Address: [address] [place] [address] Performed By: #### 1 9123-9, 54016-0, 2777-1 ####[facility]CL[facility] [id number] [place] [address] [place] Urea nitrogen [Mass/Vol] 40 mg/dL High 9-24 [facility] Comment on above: Order Comment: Speci men Type: BLOOD SPECIMENOrdering Facility: [facility] Address: [address] [place] [address] Performed By: #### 1 9123-9, 32470-3, 2777- ####[facility]CL[facility] [id number] [place] [address] [place] CASE MANAGEMon 11-27-2022 CASE MANAGEM Normal [facility] CBC panel Auto (Bld)on 11-27 Erythrocyte distribution width (RBC) [Ratio] 17.2 % High 11.5-15.0 [facility] Comment on above: Order Comment: Speci men Type: BLOOD SPECIMENOrdering Facility: [facility] Address: [address] [place] [address] Performed By: #### 5 8410-2 ####[facility]CL[facility] [id number] [place] [address] [place] Hematocrit (Bld) [Volume fraction] 36.2 % Low 39.0-51.0 [facility] Comment on above: Order Comment: Speci men Type: BLOOD SPECIMENOrdering Facility: [facility] Address: [address] [place] [address] Performed By: #### 5 8410-2 ####[facility] [id number] [place] [address] [place] Hemoglobin (Bld) [Mass/Vol] 12.0 g/dL Low 13.0-17.0 [facility] Comment on above: Order Comment: Speci men Type: BLOOD SPECIMENOrdering Facility: [facility] Address: [address] [place], [place] [address] Performed By: #### 5 8410-2 ####[facility]CL[facility] [id number] [address] MCH (RBC) [Entitic mass] 28.4 pg Normal 26.0-34.0 [facility] Comment on above: Order Comment: Speci men Type: BLOOD SPECIMENOrdering Facility: [facility] Address: [address] [place], [place] [address] Performed By: #### 5 8410-2 ####[facility] [id number] [address] [place] MCHC (RBC) [Mass/Vol] 33.1 g/dL Normal 30.5-36.0 [facility] Comment on above: Order Comment: Speci men Type: BLOOD SPECIMENOrdering Facility: [facility] Address: [address] [place], [place] [address] Performed By: #### 5 8410-2 ####[facility] [id number] [address] [place] MCV (RBC) [Entitic vol] 85.8 fL Normal 80.0-100.0 [facility] Comment on above: Order Comment: Speci men Type: BLOOD SPECIMENOrdering Facility: [facility] Address: [address] [place], [place] [address] Performed By: #### 5 8410-2 ####[facility] [id number] [address] [place] Nucleated RBC (Bld) [#/Vol] 10*3/uL Normal <0.01 [facility] Comment on above: Order Comment: Speci men Type: BLOOD SPECIMENOrdering Facility: [facility] Address: [address] [place] [address] Performed By: #### 5 8410-2 ####[facility] [id number] [place] [address] [place] Platelet mean volume (Bld) [Entitic vol] 13.7 fL High 9.0-12.7 [facility] Comment on above: Order Comment: Speci men Type: BLOOD SPECIMENOrdering Facility: [facility] Address: [address] [place] [address] Performed By: #### 5 8410-2 ####[facility] [id number] [place] [address] [place] Platelets (Bld) [#/Vol] 92 10*3/uL Low 150-400 [facility] Comment on above: Order Comment: Speci men Type: BLOOD SPECIMENOrdering Facility: [facility] Address: [address] [place] [address] Result Comment: Resu lts checked and verified.No clot detected. Performed By: #### 5 8410-2 ####[facility] [id number] [place] [address] [place] RBC (Bld) [#/Vol] 4.22 10*6/uL Normal 4.20-6.00 [facility] Comment on above: Order Comment: Speci men Type: BLOOD SPECIMENOrdering Facility: [facility] Address: [address] [place] [address] Performed By: #### 5 8410-2 ####[facility] [id number] [place] [address] [place] WBC (Bld) [#/Vol] 14.13 10*3/uL High 3.70-11.00 [facility] Comment on above: Order Comment: Speci men Type: BLOOD SPECIMENOrdering Facility: [facility] Address: [address] [place] [address] Performed By: #### 5 8410-2 ####[facility] [id number] [place] [address] [place] CONSULT PROGon 11-27-2022 CONSULT PROG Normal [facility] Gas and Carbon monoxide pane l (BldV)on 11-27-2022 BASE DEFICIT, VENOUS -5 mmol/L Low -2-0 [facility] Comment on above: Order Comment: Speci men Type: VENOUS BLOOD SPECIMENOrdering Facility: [facility] Address: [address] [place] [address] Performed By: #### 2 4344-4 ####[facility] [id number] [place] [address] [place] Body temperature 98.6 [degF] Normal [facility] Comment on above: Order Comment: Speci men Type: VENOUS BLOOD SPECIMENOrdering Facility: [facility] Address: [address] [place] [address] Performed By: #### 2 4344-4 ####[facility] [id number] [place] [address] [place] Calcium.ionized (Bld) [Mass/Vol] 1.20 mmol/L Normal 1.08-1.30 [facility] Comment on above: Order Comment: Speci men Type: VENOUS BLOOD SPECIMENOrdering Facility: [facility] Address: [address] [place], [place] [address] Performed By: #### 2 4344-4 ####[facility] [id number] [place] [address] [place] Calcium.ionized adjusted to pH 7.4 (BldA) [Moles/Vol] 1.17 mmol/L Normal 1.08-1.30 [facility] Comment on above: Order Comment: Speci men Type: VENOUS BLOOD SPECIMENOrdering Facility: [facility] Address: [address] [place] [address] Performed By: #### 2 4344-4 ####[facility]CL[facility] [id number] [address] [place] Carboxyhemoglobin (BldV) [Mass fraction] 0.1 % Normal 0.0-2.0 [facility] Comment on above: Order Comment: Speci men Type: VENOUS BLOOD SPECIMENOrdering Facility: [facility] Address: [address] [place] [address] Result Comment: Carb oxyhemoglobin Reference Range for Smokers: 2.0-8.0% Performed By: #### 2 4344-4 ####[facility]CL[facility] [id number] [place] [address] [place] CO2 (BldV) [Partial pressure] 35 mm[Hg] Low 42-55 [facility] Comment on above: Order Comment: Speci men Type: VENOUS BLOOD SPECIMENOrdering Facility: [facility] Address: [address] Performed By: #### 2 4344-4 ####[facility] [id number] [place] [address] [place] CO2 [Moles/Vol] 20 mmol/L Low 25-29 [facility] Comment on above: Order Comment: Speci men Type: VENOUS BLOOD SPECIMENOrdering Facility: [facility] Address: [address] Performed By: #### 2 4344-4 ####[facility] [id number] [place] [address] [place] Glucose [Mass/Vol] 159 mg/dL High 60-105 [facility] Comment on above: Order Comment: Speci men Type: VENOUS BLOOD SPECIMENOrdering Facility: [facility] Address: [address] Performed By: #### 2 4344-4 ####[facility] [id number] [place] [address] [place] HCO3 (Bld) [Moles/Vol] 19 mmol/L Low 24-28 [facility] Comment on above: Order Comment: Speci men Type: VENOUS BLOOD SPECIMENOrdering Facility: [facility] Address: [address] [place] [address] Performed By: #### 2 4344-4 ####[facility] [id number] [place] [address] [place] Hematocrit (Bld) [Volume fraction] 36.7 % Low 39.0-51.0 [facility] Comment on above: Order Comment: Speci men Type: VENOUS BLOOD SPECIMENOrdering Facility: [facility] Address: [address] [place] [address] Performed By: #### 2 4344-4 ####[facility] [id number] [place] [address] [place] Hemoglobin (Bld) [Mass/Vol] 11.9 g/dL Low 13.0-17.0 [facility] Comment on above: Order Comment: Speci men Type: VENOUS BLOOD SPECIMENOrdering Facility: [facility] Address: [address] [place], [place] [address] Performed By: #### 2 4344-4 ####[facility] [id number] [place] [address] [place] Lactate [Moles/Vol] 2.0 mmol/L Normal 0.5-2.2 [facility] Comment on above: Order Comment: Speci men Type: VENOUS BLOOD SPECIMENOrdering Facility: [facility] Address: [address] [place], [place] [address] Performed By: #### 2 4344-4 ####[facility] [id number] [place] [address] [place] LITERS 5 Liters/min Normal [facility] Comment on above: Order Comment: Speci men Type: VENOUS BLOOD SPECIMENOrdering Facility: [facility] Address: [address] [place] [address] Performed By: #### 2 4344-4 ####[facility] [id number] [place] [address] [place] Methemoglobin (Bld) [Mass fraction] 1.7 % High 0.0-1.5 [facility] Comment on above: Order Comment: Speci men Type: VENOUS BLOOD SPECIMENOrdering Facility: [facility] Address: [address] Performed By: #### 2 4344-4 ####[facility] [id number] [place] [address] [place] O2 THERAPY NC = Nasal Cannula Normal [facility] Comment on above: Order Comment: Speci men Type: VENOUS BLOOD SPECIMENOrdering Facility: [facility] Address: [address] Performed By: #### 2 4344-4 ####[facility] [id number] [place] [address] [place] Oxygen (BldV) [Partial pressure] 71 mm[Hg] High 35-45 [facility] Comment on above: Order Comment: Speci men Type: VENOUS BLOOD SPECIMENOrdering Facility: [facility] Address: [address] [place] [address] Performed By: #### 2 4344-4 ####[facility] [id number] [place] [address] [place] Oxygen saturation in Venous blood 94 % High 60-85 [facility] Comment on above: Order Comment: Speci men Type: VENOUS BLOOD SPECIMENOrdering Facility: [facility] Address: [address] [place] [address] Performed By: #### 2 4344-4 ####[facility] [id number] [place] [address] [place] Oxyhemoglobin (BldV) [Mass fraction] 92 % High 60-85 [facility] Comment on above: Order Comment: Speci men Type: VENOUS BLOOD SPECIMENOrdering Facility: [facility] Address: [address] [place] [address] Performed By: #### 2 4344-4 ####[facility] [id number] [place] [address] [place] pH (BldV) 7.36 [pH] Normal 7.32-7.42 [facility] Comment on above: Order Comment: Speci men Type: VENOUS BLOOD SPECIMENOrdering Facility: [facility] Address: [address] [place] [address] Performed By: #### 2 4344-4 ####[facility] [id number] [place] [address] [place] Potassium [Moles/Vol] 4.3 mmol/L Normal 3.5-5.0 [facility] Comment on above: Order Comment: Speci men Type: VENOUS BLOOD SPECIMENOrdering Facility: [facility] Address: [address] [place] [address] Performed By: #### 2 4344-4 ####[facility] [id number] [place] [address] [place] Sodium [Moles/Vol] 137 mmol/L Normal 136-144 [facility] Comment on above: Order Comment: Speci men Type: VENOUS BLOOD SPECIMENOrdering Facility: [facility] Address: [address] [place], [place] [address] Performed By: #### 2 4344-4 ####[facility] [id number] [place] [address] [place] BASE DEFICIT, VENOUS -5 mmol/L Low -2-0 [facility] Comment on above: Order Comment: Speci men Type: VENOUS BLOOD SPECIMENOrdering Facility: [facility] Address: [address] [place] [address] Performed By: #### 2 4344-4 ####[facility] [id number] [place] [address] [place] Body temperature 98.6 [degF] Normal [facility] Comment on above: Order Comment: Speci men Type: VENOUS BLOOD SPECIMENOrdering Facility: [facility] Address: [address] Performed By: #### 2 4344-4 ####[facility] [id number] [place] [address] [place] Calcium.ionized (Bld) [Mass/Vol] 1.21 mmol/L Normal 1.08-1.30 [facility] Comment on above: Order Comment: Speci men Type: VENOUS BLOOD SPECIMENOrdering Facility: [facility] Address: [address] [place] [address] Performed By: #### 2 4344-4 ####[facility] [id number] [place] [address] [place] Calcium.ionized adjusted to pH 7.4 (BldA) [Moles/Vol] 1.18 mmol/L Normal 1.08-1.30 [facility] Comment on above: Order Comment: Speci men Type: VENOUS BLOOD SPECIMENOrdering Facility: [facility] Address: [address] Performed By: #### 2 4344-4 ####[facility] [id number] [place] [address] [place] Carboxyhemoglobin (BldV) [Mass fraction] 0.8 % Normal 0.0-2.0 [facility] Comment on above: Order Comment: Speci men Type: VENOUS BLOOD SPECIMENOrdering Facility: [facility] Address: [address] Result Comment: Carb oxyhemoglobin Reference Range for Smokers: 2.0-8.0% Performed By: #### 2 4344-4 ####[facility] [id number] [place] [address] [place] CO2 (BldV) [Partial pressure] 36 mm[Hg] Low 42-55 [facility] Comment on above: Order Comment: Speci men Type: VENOUS BLOOD SPECIMENOrdering Facility: [facility] Address: [address] Performed By: #### 2 4344-4 ####[facility] [id number] [address] [place] CO2 [Moles/Vol] 21 mmol/L Low 25-29 [facility] Comment on above: Order Comment: Speci men Type: VENOUS BLOOD SPECIMENOrdering Facility: [facility] Address: [address] Performed By: #### 2 4344-4 ####[facility] [id number] [place] [address] [place] FIO2 35 % Normal [facility] Comment on above: Order Comment: Speci men Type: VENOUS BLOOD SPECIMENOrdering Facility: [facility] Address: [address] Performed By: #### 2 4344-4 ####[facility] LABCLIA [id number] [place] [address] [place] Glucose [Mass/Vol] 129 mg/dL High 60-105 [facility] Comment on above: Order Comment: Speci men Type: VENOUS BLOOD SPECIMENOrdering Facility: [facility] Address: [address] Performed By: #### 2 4344-4 ####[facility] LABCLIA [id number] [address] [id number], [place] [address] [place] HCO3 (Bld) [Moles/Vol] 20 mmol/L Low 24-28 [facility] Comment on above: Order Comment: Speci men Type: VENOUS BLOOD SPECIMENOrdering Facility: [facility] Address: [address] [place] [address] Performed By: #### 2 4344-4 ####[facility] LABCLIA [id number] [place] [address] [place] Hematocrit (Bld) [Volume fraction] 37.1 % Low 39.0-51.0 [facility] Comment on above: Order Comment: Speci men Type: VENOUS BLOOD SPECIMENOrdering Facility: [facility] Address: [address] [place] [address] Performed By: #### 2 4344-4 ####[facility] LABCL[facility] [id number] [place] [address] [place] Hemoglobin (Bld) [Mass/Vol] 12.0 g/dL Low 13.0-17.0 [facility] Comment on above: Order Comment: Speci men Type: VENOUS BLOOD SPECIMENOrdering Facility: [facility] Address: [address] [place], [place] [address] Performed By: #### 2 4344-4 ####[facility]CLIA [id number] [place] [address] [place] Lactate [Moles/Vol] 1.8 mmol/L Normal 0.5-2.2 [facility] Comment on above: Order Comment: Speci men Type: VENOUS BLOOD SPECIMENOrdering Facility: [facility] Address: [address] [place], [place] [address] Performed By: #### 2 4344-4 ####[facility]CL[facility] [id number] [place] [address] [place] Methemoglobin (Bld) [Mass fraction] 1.5 % Normal 0.0-1.5 [facility] Comment on above: Order Comment: Speci men Type: VENOUS BLOOD SPECIMENOrdering Facility: [facility] Address: [address] Performed By: #### 2 4344-4 ####[facility]CL[facility] [id number] [place] [address] [place] O2 THERAPY Hi-Flow Nasal Cannula-Heated Normal [facility] Comment on above: Order Comment: Speci men Type: VENOUS BLOOD SPECIMENOrdering Facility: [facility] Address: [address] Performed By: #### 2 4344-4 ####[facility] LABCL[facility] [id number] [place] [address] [place] Oxygen (BldV) [Partial pressure] 62 mm[Hg] High 35-45 [facility] Comment on above: Order Comment: Speci men Type: VENOUS BLOOD SPECIMENOrdering Facility: [facility] Address: [address] Performed By: #### 2 4344-4 ####[facility]CLIA [id number] [place] [address] [place] Oxygen saturation in Venous blood 90 % High 60-85 [facility] Comment on above: Order Comment: Speci men Type: VENOUS BLOOD SPECIMENOrdering Facility: [facility] Address: [address] [place] [address] Performed By: #### 2 4344-4 ####[facility] LABCLIA [id number] [place] [address] [place] Oxyhemoglobin (BldV) [Mass fraction] 88 % High 60-85 [facility] Comment on above: Order Comment: Speci men Type: VENOUS BLOOD SPECIMENOrdering Facility: [facility] Address: [address] [place] [address] Performed By: #### 2 4344-4 ####[facility] LABCLIA [id number] [place] [address] [place] pH (BldV) 7.35 [pH] Normal 7.32-7.42 [facility] Comment on above: Order Comment: Speci men Type: VENOUS BLOOD SPECIMENOrdering Facility: [facility] Address: [address] [place] [address] Performed By: #### 2 4344-4 ####[facility]CL[facility] [id number] [place] [address] [place] Potassium [Moles/Vol] 4.7 mmol/L Normal 3.5-5.0 [facility] Comment on above: Order Comment: Speci men Type: VENOUS BLOOD SPECIMENOrdering Facility: [facility] Address: [address] [place] [address] Performed By: #### 2 4344-4 ####[facility]CL[facility] [id number] [place] [address] [place] Sodium [Moles/Vol] 139 mmol/L Normal 136-144 [facility] Comment on above: Order Comment: Speci men Type: VENOUS BLOOD SPECIMENOrdering Facility: [facility] Address: [address] [place] [address] Performed By: #### 2 4344-4 ####[facility]CLIA [id number] [place] [address] [place] Magnesium SerPl-mCncon 11-27 Magnesium [Mass/Vol] 2.2 mg/dL Normal 1.7-2.3 [facility] Comment on above: Order Comment: Speci men Type: BLOOD SPECIMENOrdering Facility: [facility] Address: [address] [place] [address] Performed By: #### 1 9123-9, 06046-5, 2777-1 ####[facility]CLIA [id number] [place] [address] [place] Phosphate SerPl-mCncon 11-27 Phosphate [Mass/Vol] 3.9 mg/dL Normal 2.7-4.8 [facility] Comment on above: Order Comment: Speci men Type: BLOOD SPECIMENOrdering Facility: [facility] Address: [address] [place] [address] Performed By: #### 1 9123-9, 14206-4, 2777-1 ####[facility]CL[facility] [id number] [place] [address] [place] THERAPY NTon 11-27-2022 THERAPY NT Normal [facility] XR CHEST 1V FRONTAL PORTon 0 11-27-2022 XR CHEST 1V FRONTAL PORT Normal [facility] Bacteria Bld Culton 11-26-19 23 Bacteria identified Cx Nom (Bld) Abnormal [facility] Comment on above: Performed By: #### 6 00-7 ####[facility]CL[facility] [id number] [address] [place] Bacteria identified Cx Nom (Bld) ORGANISM ID: 1 Klebsiella (enterobacter) aerogenes Refer to specimen collected on 11/26/2022 1147 ([id number]) GRAM STAIN: Gram negative bacilli Abnormal [facility] Comment on above: Performed By: #### 6 00-7 ####[facility]CL[facility] [id number] [address] [address] [place] CASE MANAGEMon 11-26-2022 CASE MANAGEM Normal [facility] CBC panel Auto (Bld)on 11-26 Erythrocyte distribution width (RBC) [Ratio] 16.9 % High 11.5-15.0 [facility] Comment on above: Order Comment: Speci men Type: BLOOD SPECIMENOrdering Facility: [facility] Address: [address] [place] [address] Performed By: #### 5 8410-2 ####[facility]CL[facility] [id number] [address] [place] Hematocrit (Bld) [Volume fraction] 34.9 % Low 39.0-51.0 [facility] Comment on above: Order Comment: Speci men Type: BLOOD SPECIMENOrdering Facility: [facility] Address: [address] [place] [address] Performed By: #### 5 8410-2 ####[facility]CL[facility] [id number] [place] [address] [place] Hemoglobin (Bld) [Mass/Vol] 11.1 g/dL Low 13.0-17.0 [facility] Comment on above: Order Comment: Speci men Type: BLOOD SPECIMENOrdering Facility: [facility] Address: [address] [place] [address] Performed By: #### 5 8410-2 ####[facility]CL[facility] [id number] [address] [place] MCH (RBC) [Entitic mass] 28.2 pg Normal 26.0-34.0 [facility] Comment on above: Order Comment: Speci men Type: BLOOD SPECIMENOrdering Facility: [facility] Address: [address] [place], [place] [address] Performed By: #### 5 8410-2 ####[facility] LABIA [id number] [place] [address] [place] MCHC (RBC) [Mass/Vol] 31.8 g/dL Normal 30.5-36.0 [facility] Comment on above: Order Comment: Speci men Type: BLOOD SPECIMENOrdering Facility: [facility] Address: [address] [place], [place] [address] Performed By: #### 5 8410-2 ####[facility]CL[facility] [id number] [place] [address] [place] MCV (RBC) [Entitic vol] 88.8 fL Normal 80.0-100.0 [facility] Comment on above: Order Comment: Speci men Type: BLOOD SPECIMENOrdering Facility: [facility] Address: [address] Performed By: #### 5 8410-2 ####[facility] [id number] [place] [address] [place] Nucleated RBC (Bld) [#/Vol] 10*3/uL Normal <0.01 [facility] Comment on above: Order Comment: Speci men Type: BLOOD SPECIMENOrdering Facility: [facility] Address: [address] [place] [address] Performed By: #### 5 8410-2 ####[facility] [id number] [place] [address] [place] Platelet mean volume (Bld) [Entitic vol] 12.2 fL Normal 9.0-12.7 [facility] Comment on above: Order Comment: Speci men Type: BLOOD SPECIMENOrdering Facility: [facility] Address: [address] [place] [address] Performed By: #### 5 8410-2 ####[facility] [id number] [place] [address] [place] Platelets (Bld) [#/Vol] 88 10*3/uL Low 150-400 [facility] Comment on above: Order Comment: Speci men Type: BLOOD SPECIMENOrdering Facility: [facility] Address: [address] [place], [place] [address] Result Comment: Resu lts checked and verified.No clot detected. Performed By: #### 5 8410-2 ####[facility] [id number] [place] [address] [place] RBC (Bld) [#/Vol] 3.93 10*6/uL Low 4.20-6.00 [facility] Comment on above: Order Comment: Speci men Type: BLOOD SPECIMENOrdering Facility: [facility] Address: [address] [place], [place] [address] Performed By: #### 5 8410-2 ####[facility]CL[facility] [id number] [place] [address] [place] WBC (Bld) [#/Vol] 4.71 10*3/uL Normal 3.70-11.00 [facility] Comment on above: Order Comment: Speci men Type: BLOOD SPECIMENOrdering Facility: [facility] Address: [address] [place], [place] [address] Performed By: #### 5 8410-2 ####[facility]CL[facility] [id number] [place] [address] [place] CONSULT PROGon 11-26-2022 CONSULT PROG Normal [facility] CRP SerPl-mCncon 11-26-2022 CRP [Mass/Vol] 17.0 mg/dL High <0.9 [facility] Comment on above: Order Comment: Speci men Type: BLOOD SPECIMENOrdering Facility: [facility] Address: [address] [place] [address] Performed By: #### 2 4323-8, 82950-5, 1988-02 ####[facility] LABIA [id number] [place] [address] [place] Comprehensive metabolic 2000 panelon 11-26-2022 Albumin [Mass/Vol] 2.8 g/dL Low 3.9-4.9 [facility] Comment on above: Order Comment: Speci men Type: BLOOD SPECIMENOrdering Facility: [facility] Address: [address] [place], [place] [address] Performed By: #### 2 4323-8, 16822-7, 1988-02 ####[facility] LABIA [id number] [place] [address] [place] ALP [Catalytic activity/Vol] 95 U/L Normal 38-113 [facility] Comment on above: Order Comment: Speci men Type: BLOOD SPECIMENOrdering Facility: [facility] Address: [address] Performed By: #### 2 4323-8, 24791-9, 1988-02 ####[facility]CL[facility] [id number] [place] [address] [place] ALT [Catalytic activity/Vol] U/L Low 10-54 [facility] Comment on above: Order Comment: Speci men Type: BLOOD SPECIMENOrdering Facility: [facility] Address: [address] [place], [place] [address] Result Comment: Resu lt rechecked. Performed By: #### 2 4323-8, 76916-9, 1988-02 ####[facility] LABCL[facility] [id number] [place] [address] [place] Anion gap [Moles/Vol] 10 mmol/L Normal 9-18 [facility] Comment on above: Order Comment: Speci men Type: BLOOD SPECIMENOrdering Facility: [facility] Address: [address] [place], [place] [address] Performed By: #### 2 4323-8, 73760-4, 1988-02 ####[facility] LABIA [id number] [place] [address] [place] AST [Catalytic activity/Vol] 10 U/L Low 14-40 [facility] Comment on above: Order Comment: Speci men Type: BLOOD SPECIMENOrdering Facility: [facility] Address: [address] [place], [place] [address] Performed By: #### 2 4323-8, 09187-7, 1988-02 ####[facility] LABIA [id number] [place] [address] [place] Bilirubin [Mass/Vol] 0.4 mg/dL Normal 0.2-1.3 [facility] Comment on above: Order Comment: Speci men Type: BLOOD SPECIMENOrdering Facility: [facility] Address: [address] [place], [place] [address] Performed By: #### 2 4323-8, 60103-9, 1988-02 ####[facility] LABCLIA [id number] [place] [id number] [place] Calcium [Mass/Vol] 8.1 mg/dL Low 8.5-10.2 [facility] Comment on above: Order Comment: Speci men Type: BLOOD SPECIMENOrdering Facility: [facility] Address: [address] [place] Performed By: #### 2 4323-8, 17813-2, 1988-02 ####[facility] LABIA [id number] [place] [address] [place] Chloride [Moles/Vol] 108 mmol/L High 97-105 [facility] Comment on above: Order Comment: Speci men Type: BLOOD SPECIMENOrdering Facility: [facility] Address: [address] [place] [address] Performed By: #### 2 4323-8, 37368-4, 1988-02 ####[facility] LABIA [id number] [place] [address] [place] CO2 [Moles/Vol] 20 mmol/L Low 22-30 [facility] Comment on above: Order Comment: Speci men Type: BLOOD SPECIMENOrdering Facility: [facility] Address: [address] [place] [address] Performed By: #### 2 432-8, 02418-9, 1988-02 ####[facility] LABIA [id number] [place] [id number] [place] Creatinine [Mass/Vol] 1.92 mg/dL High 0.73-1.22 [facility] Comment on above: Order Comment: Speci men Type: BLOOD SPECIMENOrdering Facility: [facility] Address: [address] [place] Performed By: #### 2 4323, 44096[address]-02 ####[facility] LABCLIA [id number] [address] [place] ESTIMATED GLOMERULAR FILTRATION RATE 38 mL/min/1.73m??? Low >=60 [facility] Comment on above: Order Comment: Chaz trevizo Type: BLOOD SPECIMENOrdering Facility: [facility] Address: [address] [place] [address] Result Comment: Karina mated Glomerular Filtration Rate [...] actual GFR. Performed By: #### 2 4323-8, 98213-6, 1988-02 ####[facility] LABIA [id number] [address] [facility] Glucose [Mass/Vol] 88 mg/dL Normal 74-99 [facility] Comment on above: Order Comment: Chaz trevizo Type: BLOOD SPECIMENOrdering Facility: [facility] Address: [address] [place] [address] Result Comment: The Canadian Diabetes Association (ADA) provides guidance for cutoff [...] Standards of Medical Care in Diabetes 2016, Canadian Diabetes Association. Diabetes Care. 2016.39(Suppl 1). Performed By: #### 2 4323-8, 00555-2, 1988-02 ####[facility] LABCL[facility] [id number] [place] [address] [place] Potassium [Moles/Vol] 4.4 mmol/L Normal 3.7-5.1 [facility] Comment on above: Order Comment: Speci men Type: BLOOD SPECIMENOrdering Facility: [facility] Address: [address] [place], [place] [address] Performed By: #### 2 4323-8, 04579-2, 1988-02 ####[facility]CL[facility] [id number] [place] [address] [place] Protein [Mass/Vol] 5.2 g/dL Low 6.3-8.0 [facility] Comment on above: Order Comment: Speci men Type: BLOOD SPECIMENOrdering Facility: [facility] Address: [address] [place], [place] [address] Performed By: #### 2 432-8, 57759-7, 1988-02 ####[facility] LABIA [id number] [place] [address] [place] Sodium [Moles/Vol] 138 mmol/L Normal 136-144 [facility] Comment on above: Order Comment: Speci men Type: BLOOD SPECIMENOrdering Facility: [facility] Address: [address] [place], [place] [address] Performed By: #### 2 432-8, 90953-1, 1988-02 ####[facility] LABIA [id number] [place] [id number] [place] Urea nitrogen [Mass/Vol] 44 mg/dL High 9-24 [facility] Comment on above: Order Comment: Speci men Type: BLOOD SPECIMENOrdering Facility: [facility] Address: [address] [place] [address] Performed By: #### 2 4323-8, 22409-7, 1988-02 ####[facility] LABCL[facility] [id number] [place] [id number] [place] ECG COMPLETEon 11-26-2022 ECG COMPLETE Normal [facility] HISTORY PHYSICALon HISTORY PHYSICAL Normal [facility] MEDICAL EMERon 11-26-2022 MEDICAL KALEB Normal [facility] NURSING PROGon 11-26-2022 NURSING PROG Normal [facility] NUTRITIONon 11-26-2022 NUTRITION Normal [facility] PT panel Coag (PPP)on 2022 INR Coag (PPP) [Relative time] 1.2 {INR} Normal 0.9-1.3 [facility] Comment on above: Order Comment: Speci men Type: BLOOD SPECIMENOrdering Facility: [facility] Address: [place] [address] Result Comment: Bouchra min K Antagonist (VKA) Therapeutic Range: INR 2 to 3 (Target INR of 2.5)Note: For patients treated with VKA drugs, such as warfarin, the [employer] College of Chest Physicians 2012 Guideline recommends [...] of 3).Mukesh GH, et al. Chest 2012, 141:7S-47SNishimura RA, et al. [facility] 2017, 70: 252-289 Performed By: #### 3 4528-0 ####[facility] LABCL[facility] [id number] [facility] [id number] [place] PT Coag (PPP) [Time] 12.2 s Normal 9.7-13.0 [facility] Comment on above: Order Comment: Speci men Type: BLOOD SPECIMENOrdering Facility: [facility] Address: [place] [phone] Performed By: #### 3 4528-0 ####[facility] LABCL[facility] [id number] [place] [address] [place] Procalcitonin SerPl-mCncon 0 11-26-2022 Procalcitonin [Mass/Vol] 11.48 ng/mL High <0.09 [facility] Comment on above: Order Comment: Speci men Type: BLOOD SPECIMENOrdering Facility: [facility] Address: [address] [place] [address] Result Comment: For a guided interpretation of test results, please visit the Change in Procalcitonin Calculator, [email or web address]. Performed By: #### 2 4323-8, 09890-4, 1988-02 ####[facility] LABCL[facility] [id number] [place] [address] [place] SEPSIS LACTATEon 11-26-2022 Lactate [Moles/Vol] 2.4 mmol/L High <=2.0 [facility] Comment on above: Order Comment: Speci men Type: BLOOD SPECIMENOrdering Facility: [facility] Address: [address] [place] [address] Performed By: #### S LACT ####[facility] LABCL[facility] [id number] [address] [place] STAPH AUREUS PCRon S. aureus and MRSA panel KELLIE+probe (Nose) Normal Negative [facility] Comment on above: Order Comment: Speci men Type: SWAB OF INTERNAL NOSEOrdering Facility: [facility] Address: [address] [place] [address] Result Comment: Nega tive for Staphylococcus aureus by PCR.Negative for MRSA by PCR Performed By: #### S APCR ####[facility]CL[facility] [id number] [place] [address] [place] THERAPY NTon 11-26-2022 THERAPY NT Normal [facility] THERAPY NT Normal [facility] US KIDNEY/BLADDERon 11-26-19 US KIDNEY/BLADDER Normal [facility] Urinalysis complete pnl Uron 11-26-2022 Urinalysis complete panel (U) Normal [facility] Comment on above: Order Comment: Speci men Type: URINE SPECIMENOrdering Facility: [facility] Address: [address] [place] [address] Performed By: #### 2 4356-8 ####[facility]CL[facility] [id number] [place] [address] [place] XR CHEST 1V FRONTAL PORTon 0 11-26-2022 XR CHEST 1V FRONTAL PORT Normal [facility] CASE MGT INIT ASSESon 2022 CASE MGT INIT ASSES Normal [facility] CBC panel Auto (Bld)on 11-25 Erythrocyte distribution width (RBC) [Ratio] 17.2 % High 11.5-15.0 [facility] Comment on above: Order Comment: Speci men Type: BLOOD SPECIMENOrdering Facility: [facility] Address: [address] [place] [address] Performed By: #### 5 8410-2 ####[facility] LABIA [id number] [place] [address] [place] Hematocrit (Bld) [Volume fraction] 36.9 % Low 39.0-51.0 [facility] Comment on above: Order Comment: Speci men Type: BLOOD SPECIMENOrdering Facility: [facility] Address: [address] Performed By: #### 5 8410-2 ####[facility] LABIA [id number] [place] [address] [place] Hemoglobin (Bld) [Mass/Vol] 11.6 g/dL Low 13.0-17.0 [facility] Comment on above: Order Comment: Speci men Type: BLOOD SPECIMENOrdering Facility: [facility] Address: [address] Performed By: #### 5 8410-2 ####[facility] LABIA [id number] [address] MCH (RBC) [Entitic mass] 27.8 pg Normal 26.0-34.0 [facility] Comment on above: Order Comment: Speci men Type: BLOOD SPECIMENOrdering Facility: [facility] Address: [address] Performed By: #### 5 8410-2 ####[facility] [id number] [address] [place] MCHC (RBC) [Mass/Vol] 31.4 g/dL Normal 30.5-36.0 [facility] Comment on above: Order Comment: Speci men Type: BLOOD SPECIMENOrdering Facility: [facility] Address: [address] [place], [place] [address] Performed By: #### 5 8410-2 ####[facility] [id number] [place] [address] [place] MCV (RBC) [Entitic vol] 88.3 fL Normal 80.0-100.0 [facility] Comment on above: Order Comment: Speci men Type: BLOOD SPECIMENOrdering Facility: [facility] Address: [address] [place] [address] Performed By: #### 5 8410-2 ####[facility] [id number] [address] [place] Nucleated RBC (Bld) [#/Vol] 10*3/uL Normal <0.01 [facility] Comment on above: Order Comment: Speci men Type: BLOOD SPECIMENOrdering Facility: [facility] Address: [address] [place], [place] [address] Performed By: #### 5 8410-2 ####[facility] LABIA [id number] [place] [address] [place] Platelet mean volume (Bld) [Entitic vol] 12.0 fL Normal 9.0-12.7 [facility] Comment on above: Order Comment: Speci men Type: BLOOD SPECIMENOrdering Facility: [facility] Address: [address] [place] [address] Performed By: #### 5 8410-2 ####[facility] LABCLIA [id number] [place] [address] [place] Platelets (Bld) [#/Vol] 96 10*3/uL Low 150-400 [facility] Comment on above: Order Comment: Speci men Type: BLOOD SPECIMENOrdering Facility: [facility] [facility] Address: [address] [place] [address] Result Comment: No c lot detected. Performed By: #### 5 8410-2 ####[facility] [id number] [place] [address] [place] RBC (Bld) [#/Vol] 4.18 10*6/uL Low 4.20-6.00 [facility] Comment on above: Order Comment: Speci men Type: BLOOD SPECIMENOrdering Facility: [facility] Address: [address] [place] [address] Performed By: #### 5 8410-2 ####[facility]CL[facility] [id number] [place] [address] [place] WBC (Bld) [#/Vol] 5.31 10*3/uL Normal 3.70-11.00 [facility] Comment on above: Order Comment: Speci men Type: BLOOD SPECIMENOrdering Facility: [facility] Address: [address] [place] [address] Performed By: #### 5 8410-2 ####[facility] LABCL[facility] [id number] [address] [place] CONSULT PROGon 11-25-2022 CONSULT PROG Normal [facility] CONSULT PROG Normal [facility] Comprehensive metabolic 2000 panelon 11-25-2022 Albumin [Mass/Vol] 3.1 g/dL Low 3.9-4.9 [facility] Comment on above: Order Comment: Speci men Type: BLOOD SPECIMENOrdering Facility: [facility] Address: [address] [place] [address] Performed By: #### 2 4323-8 ####[facility]CL[facility] [id number] [place] [address] [place] ALP [Catalytic activity/Vol] 98 U/L Normal 38-113 [facility] Comment on above: Order Comment: Speci men Type: BLOOD SPECIMENOrdering Facility: [facility] Address: [address] [place] [address] Performed By: #### 2 4323-8 ####[facility] [id number] [place] [address] [place] ALT [Catalytic activity/Vol] U/L Low 10-54 [facility] Comment on above: Order Comment: Speci men Type: BLOOD SPECIMENOrdering Facility: [facility] Address: [address] [place] [address] Result Comment: Resu lt rechecked. Performed By: #### 2 4323-8 ####[facility]CL[facility] [id number] [place] [address] [place] Anion gap [Moles/Vol] 9 mmol/L Normal 9-18 [facility] Comment on above: Order Comment: Speci men Type: BLOOD SPECIMENOrdering Facility: [facility] Address: [address] [place] [address] Performed By: #### 2 4323-8 ####[facility] [id number] [place] [address] [place] AST [Catalytic activity/Vol] 8 U/L Low 14-40 [facility] Comment on above: Order Comment: Speci men Type: BLOOD SPECIMENOrdering Facility: [facility] Address: [address] Performed By: #### 2 4323-8 ####[facility] [id number] [place] [address] [place] Bilirubin [Mass/Vol] 0.4 mg/dL Normal 0.2-1.3 [facility] Comment on above: Order Comment: Speci men Type: BLOOD SPECIMENOrdering Facility: [facility] Address: [address] Performed By: #### 2 4323-8 ####[facility] [id number] [place] [address] [place] Calcium [Mass/Vol] 8.4 mg/dL Low 8.5-10.2 [facility] Comment on above: Order Comment: Speci men Type: BLOOD SPECIMENOrdering Facility: [facility] Address: [address] Performed By: #### 2 4323-8 ####[facility] [id number] [place] [address] [place] Chloride [Moles/Vol] 109 mmol/L High 97-105 [facility] Comment on above: Order Comment: Speci men Type: BLOOD SPECIMENOrdering Facility: [facility] Address: [address] Performed By: #### 2 4323-8 ####[facility]CL[facility] [id number] [place] [address] [place] CO2 [Moles/Vol] 22 mmol/L Normal 22-30 [facility] Comment on above: Order Comment: Speci men Type: BLOOD SPECIMENOrdering Facility: [facility] Address: [address] Performed By: #### 2 4323-8 ####[facility]CL[facility] [id number] [place] [address] [place] Creatinine [Mass/Vol] 1.18 mg/dL Normal 0.73-1.22 [facility] Comment on above: Order Comment: Chaz trevizo Type: BLOOD SPECIMENOrdering Facility: [facility] Address: [address] [place] [address] Performed By: #### 2 4323-8 ####[facility] [id number] [address] [place] ESTIMATED GLOMERULAR FILTRATION RATE 69 mL/min/1.73m??? Normal >=60 [facility] Comment on above: Order Comment: Chaz trevizo Type: BLOOD SPECIMENOrdering Facility: [facility] Address: [address] [place] [address] Result Comment: Karina mated Glomerular Filtration Rate [...] actual GFR. Performed By: #### 2 4323-8 ####[facility] [id number] [place] [address] [place] Glucose [Mass/Vol] 102 mg/dL High 74-99 [facility] Comment on above: Order Comment: Chaz trevizo Type: BLOOD SPECIMENOrdering Facility: [facility] Address: [address] [place] [address] Result Comment: The Canadian Diabetes Association (ADA) provides guidance for cutoff [...] Standards of Medical Care in Diabetes 2016, Canadian Diabetes Association. Diabetes Care. 2016.39(Suppl 1). Performed By: #### 2 4323-8 ####[facility]CL[facility] [id number] [place] [address] [place] Potassium [Moles/Vol] 4.8 mmol/L Normal 3.7-5.1 [facility] Comment on above: Order Comment: Speci men Type: BLOOD SPECIMENOrdering Facility: [facility] Address: [address] [place] [address] Performed By: #### 2 4323-8 ####[facility] [id number] [place] [address] [place] Protein [Mass/Vol] 5.5 g/dL Low 6.3-8.0 [facility] Comment on above: Order Comment: Speci men Type: BLOOD SPECIMENOrdering Facility: [facility] Address: [address] [place] [address] Performed By: #### 2 4323-8 ####[facility] [id number] [place] [address] [place] Sodium [Moles/Vol] 140 mmol/L Normal 136-144 [facility] Comment on above: Order Comment: Speci men Type: BLOOD SPECIMENOrdering Facility: [facility] Address: [address] [place] [address] Performed By: #### 2 4323-8 ####[facility] [id number] [place] [address] [place] Urea nitrogen [Mass/Vol] 31 mg/dL High 9-24 [facility] Comment on above: Order Comment: Speci men Type: BLOOD SPECIMENOrdering Facility: [facility] Address: [address] [place] [address] Performed By: #### 2 4323-8 ####[facility] [id number] [place] [address] [place] THERAPY NTon 11-25-2022 THERAPY NT Normal [facility] CBC panel Auto (Bld)on 11-24 Erythrocyte distribution width (RBC) [Ratio] 17.2 % High 11.5-15.0 [facility] Comment on above: Order Comment: Speci men Type: BLOOD SPECIMENOrdering Facility: [facility] Address: [address] [address] Performed By: #### 5 8410-2 ####[facility] [id number] [address] STATES [facility] Hematocrit (Bld) [Volume fraction] 37.8 % Low 39.0-51.0 [facility] Comment on above: Order Comment: Speci men Type: BLOOD SPECIMENOrdering Facility: [facility] Address: [address] Performed By: #### 5 8410-2 ####[facility] [id number] [address] Hemoglobin (Bld) [Mass/Vol] 12.1 g/dL Low 13.0-17.0 [facility] Comment on above: Order Comment: Speci men Type: BLOOD SPECIMENOrdering Facility: [facility] Address: [address] Performed By: #### 5 8410-2 ####[facility] [id number] [address] [place] MCH (RBC) [Entitic mass] 28.4 pg Normal 26.0-34.0 [facility] Comment on above: Order Comment: Speci men Type: BLOOD SPECIMENOrdering Facility: [facility] Address: [address] Performed By: #### 5 8410-2 ####[facility] [id number] [address] STATES [facility] MCHC (RBC) [Mass/Vol] 32.0 g/dL Normal 30.5-36.0 [facility] Comment on above: Order Comment: Speci men Type: BLOOD SPECIMENOrdering Facility: [facility] Address: [address] [place], [place] [address] Performed By: #### 5 8410-2 ####[facility] [id number] [place] [address] [place] MCV (RBC) [Entitic vol] 88.7 fL Normal 80.0-100.0 [facility] Comment on above: Order Comment: Speci men Type: BLOOD SPECIMENOrdering Facility: [facility] Address: [address] [place], [place] [address] Performed By: #### 5 8410-2 ####[facility] [id number] [address] [place] Nucleated RBC (Bld) [#/Vol] 10*3/uL Normal <0.01 [facility] Comment on above: Order Comment: Speci men Type: BLOOD SPECIMENOrdering Facility: [facility] Address: [address] [place], [place] [address] Performed By: #### 5 8410-2 ####[facility] [id number] [address] [place] Platelet mean volume (Bld) [Entitic vol] 12.2 fL Normal 9.0-12.7 [facility] Comment on above: Order Comment: Speci men Type: BLOOD SPECIMENOrdering Facility: [facility] Address: [address] [place], [place] [address] Performed By: #### 5 8410-2 ####[facility] [id number] [id number] [address] [place] Platelets (Bld) [#/Vol] 111 10*3/uL Low 150-400 [facility] Comment on above: Order Comment: Speci men Type: BLOOD SPECIMENOrdering Facility: [facility] Address: [address] [place] [address] Performed By: #### 5 8410-2 ####[facility]CL[facility] [id number] [place] [address] [place] RBC (Bld) [#/Vol] 4.26 10*6/uL Normal 4.20-6.00 [facility] Comment on above: Order Comment: Speci men Type: BLOOD SPECIMENOrdering Facility: [facility] Address: [address] [place] [address] Performed By: #### 5 8410-2 ####[facility]CL[facility] [id number] [place] [address] [place] WBC (Bld) [#/Vol] 4.79 10*3/uL Normal 3.70-11.00 [facility] Comment on above: Order Comment: Speci men Type: BLOOD SPECIMENOrdering Facility: [facility] Address: [address] [place] [address] Performed By: #### 5 8410-2 ####[facility] [id number] [place] [address] [place] CONSULTon 11-24-2022 CONSULT Normal [facility] CONSULT Normal [facility] CONSULT PROGon 11-24-2022 CONSULT PROG Normal [facility] Comprehensive metabolic 2000 panelon 11-24-2022 Albumin [Mass/Vol] 3.3 g/dL Low 3.9-4.9 [facility] Comment on above: Order Comment: Speci men Type: BLOOD SPECIMENOrdering Facility: [facility] Address: [address] [place] [address] Performed By: #### 1 9123-9, 2777-1, ####[facility]CL[facility] [id number] [place] [address] [place] ALP [Catalytic activity/Vol] 91 U/L Normal 38-113 [facility] Comment on above: Order Comment: Speci men Type: BLOOD SPECIMENOrdering Facility: [facility] Address: [address] [place] [address] Performed By: #### 1 9123-9, 27704-18, ####[facility]CL[facility] [id number] [place] [address] [place] ALT [Catalytic activity/Vol] U/L Low 10-54 [facility] Comment on above: Order Comment: Speci men Type: BLOOD SPECIMENOrdering Facility: [facility] Address: [address] [place] [address] Result Comment: Resu lt rechecked. Performed By: #### 1 9123-9, 27704-18, ####[facility]CL[facility] [id number] [place] [address] [place] Anion gap [Moles/Vol] 8 mmol/L Low 9-18 [facility] Comment on above: Order Comment: Speci men Type: BLOOD SPECIMENOrdering Facility: [facility] Address: [address] [place] [address] Performed By: #### 1 9123-9, 27704-18, ####[facility]CL[facility] [id number] [place] [address] [place] AST [Catalytic activity/Vol] 9 U/L Low 14-40 [facility] Comment on above: Order Comment: Speci men Type: BLOOD SPECIMENOrdering Facility: [facility] Address: [address] [place] [address] Performed By: #### 1 9123-9, 2777, 71405-4 ####[facility]CL[facility] [id number] [place] [address] [place] Bilirubin [Mass/Vol] 0.2 mg/dL Normal 0.2-1.3 [facility] Comment on above: Order Comment: Speci men Type: BLOOD SPECIMENOrdering Facility: [facility] Address: [address] [place] [address] Performed By: #### 1 9123-9, 277-, 77650-3 ####[facility] [id number] [place] [address] [place] Calcium [Mass/Vol] 8.3 mg/dL Low 8.5-10.2 [facility] Comment on above: Order Comment: Speci men Type: BLOOD SPECIMENOrdering Facility: [facility] Address: [address] [place] [address] Performed By: #### 1 9123-9, 2776-10, 94336-4 ####[facility] [id number] [place] [address] [place] Chloride [Moles/Vol] 110 mmol/L High 97-105 [facility] Comment on above: Order Comment: Speci men Type: BLOOD SPECIMENOrdering Facility: [facility] Address: [address] [place] [address] Performed By: #### 1 9123-9, 27704-18, 46387-1 ####[facility] [id number] [place] [address] [place] CO2 [Moles/Vol] 24 mmol/L Normal 22-30 [facility] Comment on above: Order Comment: Speci men Type: BLOOD SPECIMENOrdering Facility: [facility] Address: [address] [place], [place] [address] Performed By: #### 1 9123-9, 27704-18, 69836-0 ####[facility] [id number] [place] [address] [place] [facility] Creatinine [Mass/Vol] 0.94 mg/dL Normal 0.73-1.22 [facility] Comment on above: Order Comment: Chaz trevizo Type: BLOOD SPECIMENOrdering Facility: [facility] Address: [address] [place] [address] Performed By: #### 1 9123-9, 2777-, 40946-9 ####[facility] [id number] [address] OF [facility] ESTIMATED GLOMERULAR FILTRATION RATE 91 mL/min/1.73m??? Normal >=60 [facility] Comment on above: Order Comment: Chaz trevizo Type: BLOOD SPECIMENOrdering Facility: [facility] Address: [address] [place] [address] Result Comment: Karina mated Glomerular Filtration Rate [...] actual GFR. Performed By: #### 1 9123-9, 2777, ####[facility] [id number] [address] [place] Glucose [Mass/Vol] 68 mg/dL Low 74-99 [facility] Comment on above: Order Comment: Chaz trevizo Type: BLOOD SPECIMENOrdering Facility: [facility] Address: [address] [place] [address] Result Comment: The [place] Diabetes Association (ADA) provides guidance for cutoff [...] Standards of Medical Care in Diabetes 2016, [place] Diabetes Association. Diabetes Care. 2016.39(Suppl 1). Performed By: #### 1 9123-9, 2776-10, ####[facility] [id number] [address] [address] [place] Potassium [Moles/Vol] 4.1 mmol/L Normal 3.7-5.1 [facility] Comment on above: Order Comment: Speci men Type: BLOOD SPECIMENOrdering Facility: [facility] Address: [address] [place], [place] [address] Performed By: #### 1 9123-9, 2776-10, ####[facility] [id number] [place] [address] [place] Protein [Mass/Vol] 5.7 g/dL Low 6.3-8.0 [facility] Comment on above: Order Comment: Speci men Type: BLOOD SPECIMENOrdering Facility: [facility] Address: [address] [id number] Performed By: #### 1 9123-9, 2776-10, ####[facility] [id number] [place] [address] [place] Sodium [Moles/Vol] 142 mmol/L Normal 136-144 [facility] Comment on above: Order Comment: Speci men Type: BLOOD SPECIMENOrdering Facility: [facility] Address: [address] [place] [address] Performed By: #### 1 9123-9, 2776-10, ####[facility] [id number] [address] [address] [place] Urea nitrogen [Mass/Vol] 22 mg/dL Normal 9-24 [facility] Comment on above: Order Comment: Speci men Type: BLOOD SPECIMENOrdering Facility: [facility] Address: [address] [place] [address] Performed By: #### 1 9123-9, 2777, 85723-4 ####[facility] [id number] [place] [address] [place] Magnesium SerPl-ncon 11-24 Magnesium [Mass/Vol] 2.2 mg/dL Normal 1.7-2.3 [facility] Comment on above: Order Comment: Speci men Type: BLOOD SPECIMENOrdering Facility: [facility] Address: [address] [place] [address] Performed By: #### 1 9123-9, 27704-18, 60472-9 ####[facility] [id number] [place] [address] [place] [facility] Phosphate SerPl-mCncon 11-24 Phosphate [Mass/Vol] 3.3 mg/dL Normal 2.7-4.8 [facility] Comment on above: Order Comment: Speci men Type: BLOOD SPECIMENOrdering Facility: [facility] Address: [address] [place] [address] Performed By: #### 1 9123-9, 2777, ####[facility] [id number] [place] [address] [place] CBC panel Auto (Bld)on 11-23 Erythrocyte distribution width (RBC) [Ratio] 16.8 % High 11.5-15.0 [facility] Comment on above: Order Comment: Speci men Type: BLOOD SPECIMENOrdering Facility: [facility] Address: [address] [place] [address] Performed By: #### 5 8410-2 ####[facility] [id number] [address] [id number], [place] [address] [place] Hematocrit (Bld) [Volume fraction] 35.7 % Low 39.0-51.0 [facility] Comment on above: Order Comment: Speci men Type: BLOOD SPECIMENOrdering Facility: [facility] Address: [address] [place] [address] Performed By: #### 5 8410-2 ####[facility] [id number] [address] [place] Hemoglobin (Bld) [Mass/Vol] 11.3 g/dL Low 13.0-17.0 [facility] Comment on above: Order Comment: Speci men Type: BLOOD SPECIMENOrdering Facility: [facility] Address: [address] [place] [address] Performed By: #### 5 8410-2 ####[facility] [id number] [address] [place] MCH (RBC) [Entitic mass] 27.9 pg Normal 26.0-34.0 [facility] Comment on above: Order Comment: Speci men Type: BLOOD SPECIMENOrdering Facility: [facility] Address: [address] [place] [address] Performed By: #### 5 8410-2 ####[facility] [id number] [address] [place] MCHC (RBC) [Mass/Vol] 31.7 g/dL Normal 30.5-36.0 [facility] Comment on above: Order Comment: Speci men Type: BLOOD SPECIMENOrdering Facility: [facility] Address: [address] [place], [place] [address] Performed By: #### 5 8410-2 ####[facility] [id number] [address] [place] MCV (RBC) [Entitic vol] 88.1 fL Normal 80.0-100.0 [facility] Comment on above: Order Comment: Speci men Type: BLOOD SPECIMENOrdering Facility: [facility] Address: [address] Performed By: #### 5 8410-2 ####[facility] [id number] [place] [address] [place] Nucleated RBC (Bld) [#/Vol] 10*3/uL Normal <0.01 [facility] Comment on above: Order Comment: Speci men Type: BLOOD SPECIMENOrdering Facility: [facility] Address: [address] Performed By: #### 5 8410-2 ####[facility] [id number] [place] [address] [place] Platelet mean volume (Bld) [Entitic vol] 12.7 fL Normal 9.0-12.7 [facility] Comment on above: Order Comment: Speci men Type: BLOOD SPECIMENOrdering Facility: [facility] Address: [address] Performed By: #### 5 8410-2 ####[facility] [id number] [place] [address] [place] Platelets (Bld) [#/Vol] 106 10*3/uL Low 150-400 [facility] Comment on above: Order Comment: Speci men Type: BLOOD SPECIMENOrdering Facility: [facility] Address: [address] [place] [address] Performed By: #### 5 8410-2 ####[facility] [id number] [place] [address] [place] RBC (Bld) [#/Vol] 4.05 10*6/uL Low 4.20-6.00 [facility] Comment on above: Order Comment: Speci men Type: BLOOD SPECIMENOrdering Facility: [facility] Address: [address] [place], [place] [address] Performed By: #### 5 8410-2 ####[facility] [id number] [place] [address] [place] WBC (Bld) [#/Vol] 2.81 10*3/uL Low 3.70-11.00 [facility] Comment on above: Order Comment: Speci men Type: BLOOD SPECIMENOrdering Facility: [facility] Address: [address] [place] [address] Performed By: #### 5 8410-2 ####[facility] [id number] [place] [address] [place] Comprehensive metabolic 2000 panelon 11-23-2022 Albumin [Mass/Vol] 3.2 g/dL Low 3.9-4.9 [facility] Comment on above: Order Comment: Speci men Type: BLOOD SPECIMENOrdering Facility: [facility] Address: [address] [place] [address] Performed By: #### 1 9123-9, 2777-, 39290-1 ####[facility] [id number] [address] [place] ALP [Catalytic activity/Vol] 84 U/L Normal 38-113 [facility] Comment on above: Order Comment: Speci men Type: BLOOD SPECIMENOrdering Facility: [facility] Address: [address] [place], [place] [address] Performed By: #### 1 9123-9, 2777-, 03521-1 ####[facility] [id number] [place] [address] [place] ALT [Catalytic activity/Vol] U/L Low 10-54 [facility] Comment on above: Order Comment: Speci men Type: BLOOD SPECIMENOrdering Facility: [facility] Address: [address] [place], [place] [address] Performed By: #### 1 9123-9, 2777-, 34041-4 ####[facility] [id number] [place] [address] [place] Anion gap [Moles/Vol] 10 mmol/L Normal 9-18 [facility] Comment on above: Order Comment: Speci men Type: BLOOD SPECIMENOrdering Facility: [facility] Address: [address] [place] [address] Performed By: #### 1 9123-9, 2777-, 04865-3 ####[facility] [id number] [place] [address] [place] AST [Catalytic activity/Vol] 13 U/L Low 14-40 [facility] Comment on above: Order Comment: Speci men Type: BLOOD SPECIMENOrdering Facility: [facility] Address: [address] [place] [address] Performed By: #### 1 9123-9, 2777, 42767-9 ####[facility] [id number] [place] [address] [place] Bilirubin [Mass/Vol] 0.2 mg/dL Normal 0.2-1.3 [facility] Comment on above: Order Comment: Speci men Type: BLOOD SPECIMENOrdering Facility: [facility] Address: [address] [place] [address] Performed By: #### 1 9123-9, 2777, 62416-8 ####[facility] [id number] [place] [address] [place] Calcium [Mass/Vol] 8.3 mg/dL Low 8.5-10.2 [facility] Comment on above: Order Comment: Speci men Type: BLOOD SPECIMENOrdering Facility: [facility] Address: [address] [place] [address] Performed By: #### 1 9123-9, 2777-, 78703-0 ####[facility] [id number] [place] [address] [place] Chloride [Moles/Vol] 112 mmol/L High 97-105 [facility] Comment on above: Order Comment: Speci men Type: BLOOD SPECIMENOrdering Facility: [facility] Address: [address] [place] [address] Performed By: #### 1 9123-9, 2777-1, 24781-8 ####[facility] [id number] [place] [address] [place] CO2 [Moles/Vol] 21 mmol/L Low 22-30 [facility] Comment on above: Order Comment: Speci men Type: BLOOD SPECIMENOrdering Facility: [facility] Address: [address] [place] [address] Performed By: #### 1 9123-9, 2777-1, 54822-9 ####[facility] [id number] [address] [place] [facility] Creatinine [Mass/Vol] 0.84 mg/dL Normal 0.73-1.22 [facility] Comment on above: Order Comment: Speci men Type: BLOOD SPECIMENOrdering Facility: [facility] Address: [address] [place] [address] Performed By: #### 1 9123-9, 2777-1, 49712-4 ####[facility] [id number] [address] [place] ESTIMATED GLOMERULAR FILTRATION RATE 97 mL/min/1.73m??? Normal >=60 [facility] Comment on above: Order Comment: Speci men Type: BLOOD SPECIMENOrdering Facility: [facility] Address: [address] [place] [address] Result Comment: Karina mated Glomerular Filtration Rate [...] GFR. Performed By: #### 1 9123-9, 2776-10, ####[facility] [id number] [address] [address] [place] Glucose [Mass/Vol] 102 mg/dL High 74-99 [facility] Comment on above: Order Comment: Chaz trevizo Type: BLOOD SPECIMENOrdering Facility: [facility] Address: [address] [place] [address] Result Comment: The Canadian Diabetes Association (ADA) provides guidance for cutoff [...] Standards of Medical Care in Diabetes 2016, Canadian Diabetes Association. Diabetes Care. 2016.39(Suppl 1). Performed By: #### 1 9123-9, 2776-10, ####[facility] [id number] [address] [address] [place] Potassium [Moles/Vol] 4.3 mmol/L Normal 3.7-5.1 [facility] Comment on above: Order Comment: Chaz trevizo Type: BLOOD SPECIMENOrdering Facility: [facility] Address: [address] [place] [address] Performed By: #### 1 9123-9, 2776-10, ####[facility] [id number] [address] [address] [place] Protein [Mass/Vol] 5.3 g/dL Low 6.3-8.0 [facility] Comment on above: Order Comment: Speci men Type: BLOOD SPECIMENOrdering Facility: [facility] Address: [address] Performed By: #### 1 9123-9, 2776-10, ####[facility] [id number] [place] [address] [place] Sodium [Moles/Vol] 143 mmol/L Normal 136-144 [facility] Comment on above: Order Comment: Speci men Type: BLOOD SPECIMENOrdering Facility: [facility] Address: [address] [place] [address] Performed By: #### 1 9123-9, 27704-18, ####[facility] [id number] [place] [address] [place] Urea nitrogen [Mass/Vol] 21 mg/dL Normal 9-24 [facility] Comment on above: Order Comment: Speci men Type: BLOOD SPECIMENOrdering Facility: [facility] Address: [address] [place] [address] Performed By: #### 1 9123-9, 2776-10, ####[facility] [id number] [place] [address] [place] Magnesium SerPl-mCncon 11-23 Magnesium [Mass/Vol] 2.0 mg/dL Normal 1.7-2.3 [facility] Comment on above: Order Comment: Speci men Type: BLOOD SPECIMENOrdering Facility: [facility] Address: [address] [place] [address] Performed By: #### 1 9123-9, 27704-18, ####[facility] [id number] [place] [address] [place] Phosphate SerPl-mCncon 11-23 Phosphate [Mass/Vol] 2.8 mg/dL Normal 2.7-4.8 [facility] Comment on above: Order Comment: Speci men Type: BLOOD SPECIMENOrdering Facility: [facility] Address: [address] [place] [address] Performed By: #### 1 9123-9, 2777-1, 92093-0 ####[facility] [id number] [place] [address] [place] THERAPY NTon 11-23-2022 THERAPY NT Normal [facility] CBC panel Auto (Bld)on 11-22 Erythrocyte distribution width (RBC) [Ratio] 16.4 % High 11.5-15.0 [facility] Comment on above: Order Comment: Speci men Type: BLOOD SPECIMENOrdering Facility: [facility] Address: [address] [place] [address] Performed By: #### 5 8410-2 ####[facility] [id number] [address] [place] [facility] Hematocrit (Bld) [Volume fraction] 36.4 % Low 39.0-51.0 [facility] Comment on above: Order Comment: Speci men Type: BLOOD SPECIMENOrdering Facility: [facility] Address: [address] [place] [address] Performed By: #### 5 8410-2 ####[facility] [id number] [address] [place] Hemoglobin (Bld) [Mass/Vol] 11.6 g/dL Low 13.0-17.0 [facility] Comment on above: Order Comment: Speci men Type: BLOOD SPECIMENOrdering Facility: [facility] Address: [address] [place] [address] Performed By: #### 5 8410-2 ####[facility] [id number] [address] [place] MCH (RBC) [Entitic mass] 28.2 pg Normal 26.0-34.0 [facility] Comment on above: Order Comment: Speci men Type: BLOOD SPECIMENOrdering Facility: [facility] Address: [address] [place] [address] Performed By: #### 5 8410-2 ####[facility] [id number] [place] [address] [place] MCHC (RBC) [Mass/Vol] 31.9 g/dL Normal 30.5-36.0 [facility] Comment on above: Order Comment: Speci men Type: BLOOD SPECIMENOrdering Facility: [facility] Address: [address] [place] [address] Performed By: #### 5 8410-2 ####[facility] [id number] [address] [place] MCV (RBC) [Entitic vol] 88.6 fL Normal 80.0-100.0 [facility] Comment on above: Order Comment: Speci men Type: BLOOD SPECIMENOrdering Facility: [facility] Address: [address] [place] [address] Performed By: #### 5 8410-2 ####[facility] [id number] [place] [address] [place] Nucleated RBC (Bld) [#/Vol] 10*3/uL Normal <0.01 [facility] Comment on above: Order Comment: Speci men Type: BLOOD SPECIMENOrdering Facility: [facility] Address: [address] [place], [place] [address] Performed By: #### 5 8410-2 ####[facility] [id number] [place] [address] [place] Platelet mean volume (Bld) [Entitic vol] 12.5 fL Normal 9.0-12.7 [facility] Comment on above: Order Comment: Speci men Type: BLOOD SPECIMENOrdering Facility: [facility] Address: [address] Performed By: #### 5 8410-2 ####[facility] [id number] [place] [address] [place] Platelets (Bld) [#/Vol] 115 10*3/uL Low 150-400 [facility] Comment on above: Order Comment: Speci men Type: BLOOD SPECIMENOrdering Facility: [facility] Address: [address] [place], [place] [address] Performed By: #### 5 8410-2 ####[facility] [id number] [place] [address] [place] RBC (Bld) [#/Vol] 4.11 10*6/uL Low 4.20-6.00 [facility] Comment on above: Order Comment: Speci men Type: BLOOD SPECIMENOrdering Facility: [facility] Address: [address] [place], [place] [address] Performed By: #### 5 8410-2 ####[facility] [id number] [place] [address] [place] WBC (Bld) [#/Vol] 2.29 10*3/uL Low 3.70-11.00 [facility] Comment on above: Order Comment: Speci men Type: BLOOD SPECIMENOrdering Facility: [facility] Address: [address] [place], [place] [address] Performed By: #### 5 8410-2 ####[facility] [id number] [place] [address] [place] CK SerPl-cCncon 11-22-2022 CK [Catalytic activity/Vol] 27 U/L Low 51-298 [facility] Comment on above: Order Comment: Speci men Type: BLOOD SPECIMENOrdering Facility: [facility] Address: [address] [place], [place] [address] Performed By: #### 1 9123-9, 47958-6, 2156-, 2776- ####[facility] [id number] [place] [address] [place] Comprehensive metabolic 2000 panelon 11-22-2022 Albumin [Mass/Vol] 3.4 g/dL Low 3.9-4.9 [facility] Comment on above: Order Comment: Speci men Type: BLOOD SPECIMENOrdering Facility: [facility] Address: [address] [place], [place] [address] Performed By: #### 1 9123-9, 23842-5, 2157-03, 2776-10 ####[facility] [id number] [place] [address] [place] ALP [Catalytic activity/Vol] 79 U/L Normal 38-113 [facility] Comment on above: Order Comment: Speci men Type: BLOOD SPECIMENOrdering Facility: [facility] Address: [address] [place] [address] Performed By: #### 1 9123-9, 67552-9, 2157-03, 2776-10 ####[facility]IA [id number] [place] [address] [place] ALT [Catalytic activity/Vol] U/L Low 10-54 [facility] Comment on above: Order Comment: Speci men Type: BLOOD SPECIMENOrdering Facility: [facility] Address: [address] [place], [place] [address] Result Comment: Resu lt rechecked. Performed By: #### 1 9123-9, 64768-1, 2157-03, 2776- ####[facility] [id number] [place] [address] [place] Anion gap [Moles/Vol] 10 mmol/L Normal 9-18 [facility] Comment on above: Order Comment: Speci men Type: BLOOD SPECIMENOrdering Facility: [facility] Address: [address] Performed By: #### 1 9123-9, 09141-9, 2157-03, 2776-10 ####[facility] [id number] [place] [address] [place] AST [Catalytic activity/Vol] 11 U/L Low 14-40 [facility] Comment on above: Order Comment: Speci men Type: BLOOD SPECIMENOrdering Facility: [facility] Address: [address] [place] [address] Performed By: #### 1 9123-9, 41337-7, 2157-03, 2776-10 ####[facility] [id number] [place] [address] [place] Bilirubin [Mass/Vol] mg/dL Low 0.2-1.3 [facility] Comment on above: Order Comment: Speci men Type: BLOOD SPECIMENOrdering Facility: [facility] Address: [address] [place] [address] Performed By: #### 1 9123-9, 59236-6, 2157-03, 2776-10 ####[facility] [id number] [place] [address] [place] Calcium [Mass/Vol] 8.7 mg/dL Normal 8.5-10.2 [facility] Comment on above: Order Comment: Speci men Type: BLOOD SPECIMENOrdering Facility: [facility] Address: [address] [place], [place] [address] Performed By: #### 1 9123-9, 95665-7, 2157-03, 2776-10 ####[facility] [id number] [place] [address] [place] Chloride [Moles/Vol] 109 mmol/L High 97-105 [facility] Comment on above: Order Comment: Speci men Type: BLOOD SPECIMENOrdering Facility: [facility] Address: [address] [place], [place] [address] Performed By: #### 1 9123-9, 08317-9, 2157-03, 2776-10 ####[facility]IA [id number] [place] [address] [place] CO2 [Moles/Vol] 23 mmol/L Normal 22-30 [facility] Comment on above: Order Comment: Speci men Type: BLOOD SPECIMENOrdering Facility: [facility] Address: [address] [place] [address] Performed By: #### 1 9123-9, 21694-8, 2157-03, 2776-10 ####[facility]IA [id number] [place] [address] [place] Creatinine [Mass/Vol] 0.95 mg/dL Normal 0.73-1.22 [facility] Comment on above: Order Comment: Speci men Type: BLOOD SPECIMENOrdering Facility: [facility] Address: [address] [place] [address] Performed By: #### 1 9123-9, 96168-3, 2157-03, 2776-10 ####[facility] [id number] [place] [address] [place] ESTIMATED GLOMERULAR FILTRATION RATE 89 mL/min/1.73m??? Normal >=60 [facility] Comment on above: Order Comment: Speci men Type: BLOOD SPECIMENOrdering Facility: [facility] Address: [address] [place] [address] Result Comment: Karina mated Glomerular Filtration Rate [...] actual GFR. Performed By: #### 1 9123-9, 74575-3, 2157-03, 2776-10 ####[facility] [id number] [place] [id number] [place] Glucose [Mass/Vol] 101 mg/dL High 74-99 [facility] Comment on above: Order Comment: Speci men Type: BLOOD SPECIMENOrdering Facility: [facility] Address: [address] [place], [place] [phone] Result Comment: The Canadian Diabetes Association (ADA) provides guidance for cutoff [...] Standards of Medical Care in Diabetes 2016, [employer] Diabetes Association. Diabetes Care. 2016.39(Suppl 1). Performed By: #### 1 9123-9, 99997-4, 2157-03, 2776-10 ####[facility] [id number] [place] [address] [place] Potassium [Moles/Vol] 3.9 mmol/L Normal 3.7-5.1 [facility] Comment on above: Order Comment: Speci men Type: BLOOD SPECIMENOrdering Facility: [facility] Address: [address] [place] [address] Performed By: #### 1 9123-9, 87007-9, 2157-03, 2776-10 ####[facility]IA [id number] [place] [address] [place] Protein [Mass/Vol] 5.4 g/dL Low 6.3-8.0 [facility] Comment on above: Order Comment: Speci men Type: BLOOD SPECIMENOrdering Facility: [facility] Address: [address] Performed By: #### 1 9123-9, 48132-0, 2157-03, 2776-10 ####[facility] [id number] [place] [address] [place] Sodium [Moles/Vol] 142 mmol/L Normal 136-144 [facility] Comment on above: Order Comment: Speci men Type: BLOOD SPECIMENOrdering Facility: [facility] Address: [address] [place] [address] Performed By: #### 1 9123-9, 64843-9, 2157-03, 2776-10 ####[facility] [id number] [place] [address] [place] Urea nitrogen [Mass/Vol] 19 mg/dL Normal 9-24 [facility] Comment on above: Order Comment: Speci men Type: BLOOD SPECIMENOrdering Facility: [facility] Address: [address] Performed By: #### 1 9123-9, 88306-5, 2157-03, 2776-10 ####[facility] [id number] [place] [id number] [place] Magnesium SerPl-mCncon 11-22 Magnesium [Mass/Vol] 2.2 mg/dL Normal 1.7-2.3 [facility] Comment on above: Order Comment: Speci men Type: BLOOD SPECIMENOrdering Facility: [facility] Address: [address] Performed By: #### 1 9123-9, 76080-4, 2157-03, 2776-10 ####[facility] [id number] [place] [address] [place] PT panel Coag (PPP)on 2022 INR Coag (PPP) [Relative time] 1.0 {INR} Normal 0.9-1.3 [facility] Comment on above: Order Comment: Chaz trevizo Type: BLOOD SPECIMENOrdering Facility: [facility] Address: [address] [place] [phone] Result Comment: Bouchra min K Antagonist (VKA) Therapeutic Range: INR 2 to 3 (Target INR of 2.5)Note: For patients treated with VKA drugs, such as warfarin, the [employer] 2012 Guideline recommends [...] of 3).Mukesh GH, et al. Chest 2012, 141:7S-47SNishimdawson RA, et al. [facility] 2017, 70: 252-289 Performed By: #### 3 4528-0 ####[facility] [id number] [place] [address] [place] PT Coag (PPP) [Time] 10.1 s Normal 9.7-13.0 [facility] Comment on above: Order Comment: Chaz trevizo Type: BLOOD SPECIMENOrdering Facility: [facility] Address: [place] [address] Performed By: #### 3 4528-0 ####[facility] [id number] [place] [address] [place] Phosphate SerPl-mCncon 11-22 Phosphate [Mass/Vol] 3.5 mg/dL Normal 2.7-4.8 [facility] Comment on above: Order Comment: Chaz trevizo Type: BLOOD SPECIMENOrdering Facility: [facility] Address: [address] [place] [address] Performed By: #### 1 9123-9, 48241-9, 2157-6, 2777-1 ####[facility] [id number] [address] OF [facility] THERAPY NTon 11-22-2022 THERAPY NT Normal [facility] ALLIED HEALTHon 11-21-2022 ALLIED HEALTH Normal [facility] ALLIED HEALTH Normal [facility] CONSULTon 11-21-2022 CONSULT Normal [facility] CONSULT PROGon 11-21-2022 CONSULT PROG Normal [facility] NUTRITIONon 11-21-2022 NUTRITION Normal [facility] THERAPY NTon 11-21-2022 THERAPY NT Normal [facility] 25(OH)D3 SerPl-mCncon 2022 25-hydroxyvitamin D3 [Mass/Vol] 15.0 ng/mL Low 31.0-80.0 [facility] Comment on above: Order Comment: Speci men Type: BLOOD SPECIMENOrdering Facility: [facility] Address: [address] [place] [address] Result Comment: Clas sification of 25 [place] Vitamin D status:Deficiency/Insufficiency: < or = 30 ng/ml.Sufficiency/Optimal Levels: 31-80 ng/mLToxicity: > 100 ng/mL.Test performed by chemiluminescent immunoassay. Performed By: #### 1 989-3 ####[facility] [id number] [address] [place] CBC W Auto Differential pane l (Bld)on 11-20-2022 Basophils (Bld) [#/Vol] 10*3/uL Normal <0.11 [facility] Comment on above: Order Comment: Speci men Type: BLOOD SPECIMENOrdering Facility: [facility] Address: [address] [place] [address] Performed By: #### 5 8410-2, 22967-5, 13078-2 ####[facility] [id number] [place] [address] [place] Basophils/100 WBC (Bld) 0.2 % Normal [facility] Comment on above: Order Comment: Speci men Type: BLOOD SPECIMENOrdering Facility: [facility] Address: [address] [place] [address] Performed By: #### 5 8410-2, 24845-8, 58700-7 ####[facility] [id number] [place] [address] [place] Eosinophils (Bld) [#/Vol] 0.08 10*3/uL Normal <0.46 [facility] Comment on above: Order Comment: Speci men Type: BLOOD SPECIMENOrdering Facility: [facility] Address: [address] [place] [address] Performed By: #### 5 8410-2, 06916-7, 47713-8 ####[facility] [id number] [place] [address] [place] Eosinophils/100 WBC (Bld) 1.8 % Normal [facility] Comment on above: Order Comment: Speci men Type: BLOOD SPECIMENOrdering Facility: [facility] Address: [address] [place] [address] Performed By: #### 5 8410-2, 14563-0, 82843-7 ####[facility] [id number] [place] [address] [place] Immature granulocytes (Bld) [#/Vol] 0.03 10*3/uL Normal <0.10 [facility] Comment on above: Order Comment: Speci men Type: BLOOD SPECIMENOrdering Facility: [facility] Address: [address] [place], [place] [address] Performed By: #### 5 8410-2, 47260-7, 27121-2 ####[facility] [id number] [address] [address] [place] Immature granulocytes/100 WBC (Bld) 0.7 % Normal [facility] Comment on above: Order Comment: Speci men Type: BLOOD SPECIMENOrdering Facility: [facility] Address: [address] [place] [address] Performed By: #### 5 8410-2, 18884-3, 49112-2 ####[facility] [id number] [place] [address] [place] Lymphocytes (Bld) [#/Vol] 0.74 10*3/uL Low 1.00-4.00 [facility] Comment on above: Order Comment: Speci men Type: BLOOD SPECIMENOrdering Facility: [facility] Address: [address] [place], [place] [id number] Performed By: #### 5 8410-2, 85826-3, 51226-1 ####[facility] [id number] [place] [address] [place] Lymphocytes/100 WBC (Bld) 16.4 % Normal [facility] Comment on above: Order Comment: Speci men Type: BLOOD SPECIMENOrdering Facility: [facility] Address: [address] [place], [place] [id number] Performed By: #### 5 8410-2, 41386-4, 71988-0 ####[facility] [id number] [place] [address] [place] Monocytes (Bld) [#/Vol] 0.53 10*3/uL Normal <0.87 [facility] Comment on above: Order Comment: Speci men Type: BLOOD SPECIMENOrdering Facility: [facility] Address: [address] [place], [place] [address] Performed By: #### 5 8410-2, 14113-1, 81659-7 ####[facility] [id number] [place] [address] [place] Monocytes/100 WBC (Bld) 11.8 % Normal [facility] Comment on above: Order Comment: Speci men Type: BLOOD SPECIMENOrdering Facility: [facility] Address: [address] [place], [place] [id number] Performed By: #### 5 8410-2, 04807-2, 33236-8 ####[facility] [id number] [place] [address] [place] Neutrophils (Bld) [#/Vol] 3.11 10*3/uL Normal 1.45-7.50 [facility] Comment on above: Order Comment: Speci men Type: BLOOD SPECIMENOrdering Facility: [facility] Address: [address] [place], [place] [id number] Performed By: #### 5 8410-2, 12420-7, 39577-4 ####[facility] [id number] [place] [address] [place] Neutrophils/100 WBC (Bld) 69.1 % Normal [facility] Comment on above: Order Comment: Speci men Type: BLOOD SPECIMENOrdering Facility: [facility] Address: [address] [place] [address] Performed By: #### 5 8410-2, 71300-0, 21145-9 ####[facility] [id number] [place] [address] [place] CBC panel Auto (Bld)on 11-20 Erythrocyte distribution width (RBC) [Ratio] 15.9 % High 11.5-15.0 [facility] Comment on above: Order Comment: Speci men Type: BLOOD SPECIMENOrdering Facility: [facility] Address: [address] [place], [place] [id number] Performed By: #### 5 8410-2, 59021-1, 14414-3 ####[facility] [id number] [place] [address] [place] Hematocrit (Bld) [Volume fraction] 39.8 % Normal 39.0-51.0 [facility] Comment on above: Order Comment: Speci men Type: BLOOD SPECIMENOrdering Facility: [facility] Address: [address] [place] [address] Performed By: #### 5 8410-2, 95051-1, 48636-5 ####[facility] [id number] [place] [address] [place] Hemoglobin (Bld) [Mass/Vol] 12.5 g/dL Low 13.0-17.0 [facility] Comment on above: Order Comment: Speci men Type: BLOOD SPECIMENOrdering Facility: [facility] Address: [address] [place] [address] Performed By: #### 5 8410-2, 97451-5, 47178-9 ####[facility] LABIA [id number] [address] [place] MCH (RBC) [Entitic mass] 27.9 pg Normal 26.0-34.0 [facility] Comment on above: Order Comment: Speci men Type: BLOOD SPECIMENOrdering Facility: [facility] Address: [address] [place] [address] Performed By: #### 5 8410-2, 92367-9, 99096-1 ####[facility] [id number] [place] [address] [place] MCHC (RBC) [Mass/Vol] 31.4 g/dL Normal 30.5-36.0 [facility] Comment on above: Order Comment: Speci men Type: BLOOD SPECIMENOrdering Facility: [facility] Address: [address] [place], [place] [address] Performed By: #### 5 8410-2, 67690-4, 97745-3 ####[facility] [id number] [address] STATES OF [facility] MCV (RBC) [Entitic vol] 88.8 fL Normal 80.0-100.0 [facility] Comment on above: Order Comment: Speci men Type: BLOOD SPECIMENOrdering Facility: [facility] Address: [address] [place], [place] [address] Performed By: #### 5 8410-2, 56127-9, 29238-0 ####[facility] [id number] [place] [address] [place] Nucleated RBC (Bld) [#/Vol] 10*3/uL Normal <0.01 [facility] Comment on above: Order Comment: Speci men Type: BLOOD SPECIMENOrdering Facility: [facility] Address: [address] [place] [address] Performed By: #### 5 8410-2, 50694-1, 49446-3 ####[facility] [id number] [place] [address] [place] Platelet mean volume (Bld) [Entitic vol] 11.8 fL Normal 9.0-12.7 [facility] Comment on above: Order Comment: Speci men Type: BLOOD SPECIMENOrdering Facility: [facility] Address: [address] [place] [address] Performed By: #### 5 8410-2, 27023-2, 72396-9 ####[facility] [id number] [place] [address] [place] Platelets (Bld) [#/Vol] 138 10*3/uL Low 150-400 [facility] Comment on above: Order Comment: Speci men Type: BLOOD SPECIMENOrdering Facility: [facility] Address: [address] [place], [place] [id number] Result Comment: No c lot detected.Results checked and verified. Performed By: #### 5 8410-2, 11831-9, 82994-8 ####[facility] [id number] [place] [address] [place] RBC (Bld) [#/Vol] 4.48 10*6/uL Normal 4.20-6.00 [facility] Comment on above: Order Comment: Speci men Type: BLOOD SPECIMENOrdering Facility: [facility] Address: [address] [place] [address] Performed By: #### 5 8410-2, 50715-0, 59854-9 ####[facility] [id number] [place] [address] [place] WBC (Bld) [#/Vol] 4.53 10*3/uL Normal 3.70-11.00 [facility] Comment on above: Order Comment: Speci men Type: BLOOD SPECIMENOrdering Facility: [facility] Address: [address] [place] [address] Performed By: #### 5 8410-2, 79084-4, 62916-9 ####[facility] [id number] [place] [address] [place] CONSULTon 11-20-2022 CONSULT Normal [facility] Calcium.ionized [Moles/Vol]o n 11-20-2022 Calcium.ionized (Bld) [Mass/Vol] 1.27 mmol/L Normal 1.08-1.30 [facility] Comment on above: Order Comment: Speci men Type: BLOOD SPECIMENOrdering Facility: [facility] Address: [address] [place], [place] [address] Performed By: #### 1 995-0 ####[facility] [id number] [address] [place] Calcium.ionized adjusted to pH 7.4 (Bld) [Moles/Vol] 1.23 mmol/L Normal 1.08-1.30 [facility] Comment on above: Order Comment: Speci men Type: BLOOD SPECIMENOrdering Facility: [facility] Address: [address] [place], [place] [address] Performed By: #### 1 995-0 ####[facility] [id number] [place] [id number] [place] Comprehensive metabolic 2000 panelon 11-20-2022 Albumin [Mass/Vol] 4.0 g/dL Normal 3.9-4.9 [facility] Comment on above: Order Comment: Speci men Type: BLOOD SPECIMENOrdering Facility: [facility] Address: [address] [place] [address] Performed By: #### 3 3959-8, , ####[facility] [id number] [place] [address] [place] ALP [Catalytic activity/Vol] 90 U/L Normal 38-113 [facility] Comment on above: Order Comment: Speci men Type: BLOOD SPECIMENOrdering Facility: [facility] Address: [address] [place] [address] Performed By: #### 3 3959-8, , ####[facility] [id number] [place] [address] [place] ALT [Catalytic activity/Vol] 7 U/L Low 10-54 [facility] Comment on above: Order Comment: Speci men Type: BLOOD SPECIMENOrdering Facility: [facility] Address: [address] [place] [address] Performed By: #### 3 3959-8, , 60499-4 ####[facility] [id number] [place] [id number] [place] Anion gap [Moles/Vol] 12 mmol/L Normal 9-18 [facility] Comment on above: Order Comment: Speci men Type: BLOOD SPECIMENOrdering Facility: [facility] Address: [address] [place], [place] [id number] Performed By: #### 3 3959-8, , 57428-3 ####[facility] [id number] [place] [address] [place] AST [Catalytic activity/Vol] 11 U/L Low 14-40 [facility] Comment on above: Order Comment: Speci men Type: BLOOD SPECIMENOrdering Facility: [facility] Address: [address] [place] [address] Performed By: #### 3 3959-8, , ####[facility] [id number] [place] [address] [place] Bilirubin [Mass/Vol] 0.2 mg/dL Normal 0.2-1.3 [facility] Comment on above: Order Comment: Speci men Type: BLOOD SPECIMENOrdering Facility: [facility] Address: [address] [place] [address] Performed By: #### 3 3959-8, , ####[facility] [id number] [place] [address] [place] Calcium [Mass/Vol] 8.9 mg/dL Normal 8.5-10.2 [facility] Comment on above: Order Comment: Speci men Type: BLOOD SPECIMENOrdering Facility: [facility] Address: [address] [place] [address] Performed By: #### 3 3959-8, , ####[facility] [id number] [place] [address] [place] Chloride [Moles/Vol] 110 mmol/L High 97-105 [facility] Comment on above: Order Comment: Speci men Type: BLOOD SPECIMENOrdering Facility: [facility] Address: [address] [place] [address] Performed By: #### 3 3959-8, , 98572-0 ####[facility] [id number] [place] [address] [place] CO2 [Moles/Vol] 20 mmol/L Low 22-30 [facility] Comment on above: Order Comment: Speci men Type: BLOOD SPECIMENOrdering Facility: [facility] Address: [address] [place] [address] Performed By: #### 3 3959-8, , ####[facility] [id number] [place] [address] [place] Creatinine [Mass/Vol] 0.95 mg/dL Normal 0.73-1.22 [facility] Comment on above: Order Comment: Speci men Type: BLOOD SPECIMENOrdering Facility: [facility] Address: [address] [place] [address] Performed By: #### 3 3959-8, , ####[facility] [id number] [place] [address] [place] ESTIMATED GLOMERULAR FILTRATION RATE 89 mL/min/1.73m??? Normal >=60 [facility] Comment on above: Order Comment: Speci men Type: BLOOD SPECIMENOrdering Facility: [facility] Address: [address] [place] [address] Result Comment: Karina mated Glomerular Filtration Rate [...] GFR. Performed By: #### 3 3959-8, , ####[facility] [id number] [place] [address] [place] Glucose [Mass/Vol] 74 mg/dL Normal 74-99 [facility] Comment on above: Order Comment: Speci men Type: BLOOD SPECIMENOrdering Facility: [facility] Address: [place] [address] Result Comment: The Canadian Diabetes Association (ADA) provides guidance for cutoff [...] Standards of Medical Care in Diabetes 2016, Canadian Diabetes Association. Diabetes Care. 2016.39(Suppl 1). Performed By: #### 3 3959-8, , ####[facility] [id number] [place] [address] [place] Potassium [Moles/Vol] 4.2 mmol/L Normal 3.7-5.1 [facility] Comment on above: Order Comment: Speci men Type: BLOOD SPECIMENOrdering Facility: [facility] Address: [place] [id number] Performed By: #### 3 3959-8, , ####[facility] [id number] [place] [address] [place] Protein [Mass/Vol] 6.2 g/dL Low 6.3-8.0 [facility] Comment on above: Order Comment: Speci men Type: BLOOD SPECIMENOrdering Facility: [facility] Address: [place] [id number] Performed By: #### 3 3959-8, , ####[facility] [id number] [place] [id number] [place] Sodium [Moles/Vol] 142 mmol/L Normal 136-144 [facility] Comment on above: Order Comment: Speci men Type: BLOOD SPECIMENOrdering Facility: [facility] Address: [address] [place], [place] [id number] Performed By: #### 3 3959-8, , ####[facility] [id number] [place] [address] [place] Urea nitrogen [Mass/Vol] 26 mg/dL High 9-24 [facility] Comment on above: Order Comment: Speci men Type: BLOOD SPECIMENOrdering Facility: [facility] Address: [address] [place], [place] [id number] Performed By: #### 3 39598, , ####[facility] [id number] [place] [address] [place] [id number] 11-20-2022 ECG01 Normal [facility] ED PROV NOTEon 11-20-2022 ED PROV NOTE Normal [facility] ED PROV NOTE Normal [facility] HISTORY PHYSICALon HISTORY PHYSICAL Normal [facility] LIPID PANEL, NONFASTINGon Cholesterol [Mass/Vol] 135 mg/dL Normal <200 [facility] Comment on above: Order Comment: Speci men Type: BLOOD SPECIMENOrdering Facility: [facility] Address: [address] [place], [place] [id number] Result Comment: <200 mg/dL, Desirable 200-239 mg/dL, Borderline high>239 mg/dL, High Performed By: #### L IPNF ####[facility] [id number] [place] [address] [place] HDL CHOLESTEROL, NF 35 mg/dL Low >39 [facility] Comment on above: Order Comment: Speci men Type: BLOOD SPECIMENOrdering Facility: [facility] Address: [address] [place], [place] [id number] Result Comment: 40-5 9 mg/dL, Acceptable>59 mg/dL, High: Negative risk factor for coronary heart disease<40 mg/dL, Low: Positive risk factor for coronary heart disease Performed By: #### L IPNF ####[facility] [id number] [address] LDL CHOLESTEROL, NF 76 mg/dL Normal <100 [facility] Comment on above: Order Comment: Speci men Type: BLOOD SPECIMENOrdering Facility: [facility] Address: [address] [place] [address] Result Comment: <100 mg/dL, Optimal 100-129 mg/dL, Near optimal/above optimal 130-159 mg/dL, Borderline high 160-189 mg/dL, High>189 mg/dL, Very highSecondary prevention optimal LDL Cholesterol levels are recommended to be < 70 mg/dL Performed By: #### L IPNF ####[facility] [id number] [address] LDL/HDL RATIO, NF 2.17 mg/dL Normal <2.54 [facility] Comment on above: Order Comment: [facility] Type: BLOOD SPECIMENOrdering Facility: [facility] Address: [address] [place] [address] Result Comment: Refe rence:1. National Cholesterol Education Program ATP III Guideline At-A-Glance Quick Desk Reference: National Heart, Lung, and Blood Upson. National Institutes of Health. 2001: NIH Publication No. 01-3305.2. An International Atherosclerosis Society position paper: global recommendations for the management of dyslipidemia: executive summary, Atherosclerosis. 2014: 232(2):410-413. Performed By: #### L IPNF ####[facility] [id number] [address] OF [facility] NON HDL CHOL, NF 100 mg/dL Normal <130 [facility] Comment on above: Order Comment: Princess[place] men Type: BLOOD SPECIMENOrdering Facility: [facility] Address: [address] [place] [address] Result Comment: <130 mg/dL, Optimal 130-159 mg/dL, Near optimal/above optimal 160-189 mg/dL, Borderline high 190-219 mg/dL, High>219 mg/dL, Very highSecondary prevention optimal non HDL Cholesterol levels are recommended to be <100 mg/dL Performed By: #### L IPNF ####[facility] [id number] [address] [place] T CHOL/HDL RATIO NF 3.86 mg/dL Normal <5.10 [facility] Comment on above: Order Comment: Speci men Type: BLOOD SPECIMENOrdering Facility: [facility] Address: [address] [place] [address] Performed By: #### L IPNF ####[facility] [id number] [place] [address] [place] TRIGLYCERIDES, NF 118 mg/dL Normal <150 [facility] Comment on above: Order Comment: Speci men Type: BLOOD SPECIMENOrdering Facility: [facility] Address: [address] [place] [address] Result Comment: <150 mg/dL, Normal 150-199 mg/dL, Borderline high 200-499 mg/dL, High>499 mg/dL, Very high Performed By: #### L IPNF ####[facility] [id number] [place] [address] [place] VLDL CHOLESTEROL, NF 24 mg/dL Normal <30 [facility] Comment on above: Order Comment: Speci men Type: BLOOD SPECIMENOrdering Facility: [facility] Address: [address] [place] [address] Performed By: #### L IPNF ####[facility] [id number] [place] [address] [place] Magnesium SerPl-mCncon 11-20 Magnesium [Mass/Vol] 2.1 mg/dL Normal 1.7-2.3 [facility] Comment on above: Order Comment: Speci men Type: BLOOD SPECIMENOrdering Facility: [facility] Address: [address] [place] [address] Performed By: #### 3 3959-8, , ####[facility] [id number] [place] [address] [place] Prealb SerPl-mCncon 11-20-19 Prealbumin [Mass/Vol] 25 mg/dL Normal 17-36 [facility] Comment on above: Order Comment: Speci men Type: BLOOD SPECIMENOrdering Facility: [facility] Address: [address] [place] [address] Performed By: #### 1 4338-8 ####[facility] [id number] [place] [address] [place] Procalcitonin SerPl-mCncon 0 11-20-2022 Procalcitonin [Mass/Vol] 0.10 ng/mL High <0.09 [facility] Comment on above: Order Comment: Speci men Type: BLOOD SPECIMENOrdering Facility: [facility] Address: [address] [place] [address] Result Comment: For a guided interpretation of test results, please visit the Change in Procalcitonin Calculator, [email or web address]. Performed By: #### 3 3959-8, , ####[facility] [id number] [place] [address] [place] Retics #on 11-20-2022 Reticulocytes (Bld) [#/Vol] 0.55086 10*3/uL Normal 0.018-0.10 0 [facility] Comment on above: Order Comment: Speci men Type: BLOOD SPECIMENOrdering Facility: [facility] Address: [address] [place] [address] Performed By: #### 5 8410-2, 97782-8, 26823-1 ####[facility] [id number] [address] [place] Reticulocytes (Bld) [#/Vol]o n 11-20-2022 Reticulocytes/100 RBC (Bld) 1.4 % Normal 0.4-2.0 [facility] Comment on above: Order Comment: Speci men Type: BLOOD SPECIMENOrdering Facility: [facility] Address: [address] [place] [address] Performed By: #### 5 8410-2, 99436-0, 35591-3 ####[facility] [id number] [address] [place] SARS-CoV-2 RNA Resp Ql KELLIE+p robeon 11-20-2022 SARS-CoV-2 (COVID-19) RNA KELLIE+probe Ql (Resp) COVID 19 RESULT: Detected The method used is RT-PCR or an equivalent NAAT method. Reference Range(the expected result in uninfected individuals): Not detected Normal [facility] Comment on above: Performed By: #### 9 4500-6 ####[facility] [id number] [address] [place] Urinalysis complete panel (U )on 11-20-2022 Bilirubin Ql (U) Negative Normal Negative [facility] Comment on above: Order Comment: Speci men Type: URINE SPECIMENOrdering Facility: [facility] Address: [address] [place] [address] Performed By: #### 2 4356-8 ####[facility] [id number] [address] [place] Clarity (Unsp spec) Clear Normal Clear [facility] Comment on above: Order Comment: Speci men Type: URINE SPECIMENOrdering Facility: [facility] Address: [address] [place] [address] Performed By: #### 2 4356-8 ####[facility] [id number] [place] [address] [place] Color (U) Yellow Normal Yellow [facility] Comment on above: Order Comment: Speci men Type: URINE SPECIMENOrdering Facility: [facility] Address: [address] [place] [address] Performed By: #### 2 4356-8 ####[facility] [id number] [place] [address] [place] Glucose Test strip (U) [Mass/Vol] Negative Normal Trace, Negative [facility] Comment on above: Order Comment: Speci men Type: URINE SPECIMENOrdering Facility: [facility] Address: [address] [place] [address] Performed By: #### 2 4356-8 ####[facility] [id number] [place] [address] [place] Hemoglobin Ql (U) Negative Normal Negative, Trace [facility] Comment on above: Order Comment: Speci men Type: URINE SPECIMENOrdering Facility: [facility] Address: [address] [place], [place] [id number] Performed By: #### 2 4356-8 ####[facility] [id number] [place] [address] [place] Ketones Ql (U) Trace Normal Trace, Negative [facility] Comment on above: Order Comment: Speci men Type: URINE SPECIMENOrdering Facility: [facility] Address: [address] Performed By: #### 2 4356-8 ####[facility] [id number] [place] [address] [place] Leukocyte esterase Test strip Ql (U) Negative Normal Negative, 25 Winter/mL [facility] Comment on above: Order Comment: Speci men Type: URINE SPECIMENOrdering Facility: [facility] Address: [address] [place], [place] [id number] Performed By: #### 2 4356-8 ####[facility] [id number] [place] [address] [place] Nitrite Ql (U) Negative Normal Negative [facility] Comment on above: Order Comment: Speci men Type: URINE SPECIMENOrdering Facility: [facility] Address: [address] [place] [address] Performed By: #### 2 4356-8 ####[facility] [id number] [place] [address] [place] pH (U) 5.0 [pH] Normal 5.0-8.0 [facility] Comment on above: Order Comment: Speci men Type: URINE SPECIMENOrdering Facility: [facility] Address: [address] [place] [address] Performed By: #### 2 4356-8 ####[facility] [id number] [place] [address] [place] Protein (U) [Mass/Vol] Trace Normal Trace , Negative [facility] Comment on above: Order Comment: Speci men Type: URINE SPECIMENOrdering Facility: [facility] Address: [address] [place] [address] Performed By: #### 2 4356-8 ####[facility] [id number] [place] [address] [place] RBC LM.HPF (Urine sed) [#/Area] 3-5 /HPF Abnormal 0-3 /HPF [facility] Comment on above: Order Comment: Speci men Type: URINE SPECIMENOrdering Facility: [facility] Address: [address] [place], [place] [id number] Performed By: #### 2 4356-8 ####[facility] [id number] [place] [address] [place] Specific gravity (U) [Rel density] 1.020 Normal 1.005-1.03 0 [facility] Comment on above: Order Comment: Speci men Type: URINE SPECIMENOrdering Facility: [facility] Address: [address] [place] [address] Performed By: #### 2 4356-8 ####[facility] [id number] [place] [address] [place] Urobilinogen Ql (U) Negative Normal Negative [facility] Comment on above: Order Comment: Speci men Type: URINE SPECIMENOrdering Facility: [facility] Address: [address] [place] [address] Performed By: #### 2 4356-8 ####[facility] [id number] [place] [address] [place] WBC LM.HPF (Urine sed) [#/Area] 0-5 /HPF Normal 0-5 /HPF [facility] Comment on above: Order Comment: Speci men Type: URINE SPECIMENOrdering Facility: [facility] Address: [address] [place] [address] Performed By: #### 2 4356-8 ####[facility] [id number] [place] [address] [place] XR CHEST 1V FRONTAL PORTon 0 11-20-2022 XR CHEST 1V FRONTAL PORT Normal [facility] CBC AUTO DIFFon 11-09-2022 BASO # 0.0 103/ul Normal 0.0-0.1 [facility] Comment on above: Performed By: #### C BC #### [facility] [address] [place] [address] Dr. Bruce Nicholas Basophils/100 WBC (Bld) 0.1 % Critically low 0.2-2.0 [facility] Comment on above: Performed By: #### C BC #### [facility] [address] [place] [address] Dr. Bruce Nicholas EO # 0.0 103/ul Normal 0.0-0.7 [facility] Comment on above: Performed By: #### C BC #### [facility] [address] [place] [address] Dr. Bruce Nicholas Eosinophils/100 WBC (Bld) 0.0 % Critically low 0.9-7.0 [facility] Comment on above: Performed By: #### C BC #### [facility] [address] [place] [address] Dr. Bruce Nicholas Erythrocyte distribution width (RBC) [Ratio] 16.0 % Critically high 11.0-15.0 [facility] Comment on above: Performed By: #### C BC #### [facility] [address] [place] [address] Dr. Bruce Nicholas Hematocrit (Bld) [Volume fraction] 36.6 % Critically low 42.0-54.0 [facility] Comment on above: Performed By: #### C BC #### [facility] [address] [place] [address] Dr. Bruce Nicholas Hemoglobin (Bld) [Mass/Vol] 12.3 g/dL Critically low 14.0-18.0 [facility] Comment on above: Performed By: #### C BC #### [facility] [address] [place] [address] Dr. Bruce Nicholas IG # 0.06 10e3/ul Critically high 0.00-0.03 [facility] Comment on above: Performed By: #### C BC #### [facility] [address] [place] [address] Dr. Bruce Nicholas IG % 0.7 % Critically high 0.0-0.5 [facility] Comment on above: Performed By: #### C BC #### [facility] [address] [place] [address] Dr. Bruce Nicholas LYMPH # 1.0 103/ul Critically low 1.2-3.8 [facility] Comment on above: Performed By: #### C BC #### [facility] [address] [place] [address] Dr. Bruce Nicholas Lymphocytes/100 WBC (Bld) 11.8 % Critically low 20.5-60.0 [facility] Comment on above: Performed By: #### C BC #### [facility] [address] [place] [address] Dr. Bruce Nicholas MANUAL DIFF REQ NO Normal [facility] Comment on above: Performed By: #### C BC #### [facility] [address] [place] [address] Dr. Bruce Nicholas MCH (RBC) [Entitic mass] 27.3 pg Normal 25.9-34.0 [facility] [facility] Comment on above: Performed By: #### C BC #### [facility] [address] [place] [address] Dr. Bruce Nicholas MCHC (RBC) [Mass/Vol] 33.6 g/dL Normal 29.9-35.2 [facility] Comment on above: Performed By: #### C BC #### [facility] [address] [place] [address] Dr. Bruce Nicholas MCV (RBC) [Entitic vol] 81.2 fL Normal 80.0-94.0 [facility] Comment on above: Performed By: #### C BC #### [facility] [address] [place] [address] Dr. Bruce Nicholas MONO # 0.2 103/ul Critically low 0.3-0.8 [facility] Comment on above: Performed By: #### C BC #### [facility] [address] [place] [address] Dr. Bruce Nicholas Monocytes/100 WBC (Bld) 3.0 % Normal 1.7-12.0 [facility] Comment on above: Performed By: #### C BC #### [facility] [address] [place] [address] Dr. Bruce Nicholas NEUT # 6.8 103/ul Critically high 1.4-6.5 [facility] Comment on above: Performed By: #### C BC #### [facility] [address] [place] [address] Dr. Bruce Nicholas Neutrophils/100 WBC (Bld) 84.4 % Critically high 43.0-75.0 [facility] Comment on above: Performed By: #### C BC #### [facility] [address] [place] [address] Dr. Bruce Nicholas Platelet mean volume (Bld) [Entitic vol] 11.6 fL Normal 9.5-13.5 [facility] Comment on above: Performed By: #### C BC #### [facility] [address] [address] [address] Bruce Nicholas PLT 206 103/ul Normal 150-450 [facility] Comment on above: Performed By: #### C BC #### [facility] [address] [address] [address] Bruce Nicholas RBC 4.51 106/ul Critically low 4.70-6.10 [facility] Comment on above: Performed By: #### C BC #### [facility] [address] [place] [address] Dr. Bruce Nicholas WBC 8.1 103/ul Normal 4.0-11.0 [facility] Comment on above: Performed By: #### C BC #### [facility] [address] [place] [address] Dr. Bruce Nicholas POINT OF CARE GLUCOSEon 10-20 Glucose [Mass/Vol] 134 mg/dL Critically high 74-106 [facility] Comment on above: Performed By: #### P OCGLUC #### [facility] [address] [place] [address] Dr. Bruce Nicholas PROF CHEM 8 (BAS METB)on Anion gap [Moles/Vol] 13.3 mmol/L Normal [facility] Comment on above: Performed By: #### P OCGLUC #### [facility] [address] [place] [address] Dr. Bruce Nicholas Calcium [Mass/Vol] 9.0 mg/dL Normal 8.5-10.1 [facility] Comment on above: Performed By: #### P OCGLUC #### [facility] [address] [place] [address] Dr. Bruce Nicholas Chloride [Moles/Vol] 105 mmol/L Normal 98-107 [facility] Comment on above: Performed By: #### P OCGLUC #### [facility] [address] [address] [address] Bruce Nicholas CO2 [Moles/Vol] 24.9 mmol/L Normal 21.0-32.0 [facility] Comment on above: Performed By: #### P OCGLUC #### [facility] [address] [address] [address] Bruce Nicholas Creatinine [Mass/Vol] 0.86 mg/dL Normal 0.70-1.30 [facility] Comment on above: Performed By: #### P OCGLUC #### [facility] [address] [address] [address] Bruce Nicholas EGFR-AF CAMBODIAN >60 Normal >=60 [facility] Comment on above: Performed By: #### P OCGLUC #### [facility] [address] [address] [address] Bruce Nicholas EGFR-NON AF CAMBODIAN >60 Normal >=60 [facility] Comment on above: Performed By: #### P OCGLUC #### [facility] [address] [address] [address] Bruce Nicholas Glucose [Mass/Vol] 127 mg/dL Critically high 74-106 [facility] Comment on above: Performed By: #### P OCGLUC #### [facility] [address] [address] [address] Bruce Nicholas Potassium [Moles/Vol] 4.2 mmol/L Normal 3.5-5.1 [facility] Comment on above: Performed By: #### P OCGLUC #### [facility] [address] [address] [address] Bruce Nicholas Sodium [Moles/Vol] 139 mmol/L Normal 136-145 [facility] Comment on above: Performed By: #### P OCGLUC #### [facility] [address] [address] [address] Bruce Nicholas Urea nitrogen [Mass/Vol] 30.0 mg/dL Critically high 7.0-18.0 [facility] Comment on above: Performed By: #### P OCGLUC #### [facility] [address] [place] [address] Dr. Bruce Nicholas Urea nitrogen/Creatinine [Mass ratio] 34.9 mg/mg Normal [facility] Comment on above: Performed By: #### P OCGLUC #### [facility] [address] [place] [address] Dr. Bruce Nicholas CBC AUTO DIFFon 11-08-2022 BASO # 0.0 103/ul Normal 0.0-0.1 [facility] Comment on above: Performed By: #### C VDTBH #### [facility] [address] [place] [address] Dr. Bruce Nicholas Basophils/100 WBC (Bld) 0.1 % Critically low 0.2-2.0 [facility] Comment on above: Performed By: #### C VDTBH #### [facility] [address] [place] [address] Dr. Bruce Nicholas EO # 0.0 103/ul Normal 0.0-0.7 [facility] Comment on above: Performed By: #### C VDTBH #### [facility] [address] [place] [address] Dr. Bruce Nicholas Eosinophils/100 WBC (Bld) 0.0 % Critically low 0.9-7.0 [facility] Comment on above: Performed By: #### C VDTBH #### [facility] [address] [place] [address] Dr. Bruce Nicholas Erythrocyte distribution width (RBC) [Ratio] 15.8 % Critically high 11.0-15.0 [facility] Comment on above: Performed By: #### C VDTBH #### [facility] [address] [place] [address] Dr. Bruce Nicholas Hematocrit (Bld) [Volume fraction] 33.4 % Critically low 42.0-54.0 [facility] Comment on above: Performed By: #### C VDTBH #### [facility] [address] [place] [address] Dr. Bruce Nicholas Hemoglobin (Bld) [Mass/Vol] 11.5 g/dL Critically low 14.0-18.0 [facility] Comment on above: Performed By: #### C VDTBH #### [facility] [address] [address] [address] Bruce Nicholas IG # 0.05 10e3/ul Critically high 0.00-0.03 [facility] Comment on above: Performed By: #### C VDTBH #### [facility] [address] [address] [address] Bruce Nicholas IG % 0.5 % Normal 0.0-0.5 [facility] Comment on above: Performed By: #### C VDTBH #### [facility] [address] [address] [address] Bruce Nicholas LYMPH # 0.9 103/ul Critically low 1.2-3.8 [facility] Comment on above: Performed By: #### C VDTBH #### [facility] [address] [address] [address] Bruce Nicholas Lymphocytes/100 WBC (Bld) 9.6 % Critically low 20.5-60.0 [facility] Comment on above: Performed By: #### C VDTBH #### [facility] [address] [address] [address] Bruce Nicholas MANUAL DIFF REQ NO Normal [facility] Comment on above: Performed By: #### C VDTBH #### [facility] [address] [address] [address] Bruce Nicholas MCH (RBC) [Entitic mass] 27.5 pg Normal 25.9-34.0 [facility] Comment on above: Performed By: #### C VDTBH #### [facility] [address] [address] [address] Bruce Nicholas MCHC (RBC) [Mass/Vol] 34.4 g/dL Normal 29.9-35.2 [facility] Comment on above: Performed By: #### C VDTBH #### [facility] [address] [place] [address] Dr. Bruce Nicholas MCV (RBC) [Entitic vol] 79.9 fL Critically low 80.0-94.0 [facility] Comment on above: Performed By: #### C VDTBH #### [facility] [address] [place] [address] Dr. Bruce Nicholas MONO # 0.3 103/ul Normal 0.3-0.8 [facility] Comment on above: Performed By: #### C VDTBH #### [facility] [address] [place] [address] Dr. Bruce Nicholas Monocytes/100 WBC (Bld) 3.3 % Normal 1.7-12.0 [facility] Comment on above: Performed By: #### C VDTBH #### [facility] [address] [place] [address] Dr. Bruce Nicholas NEUT # 8.3 103/ul Critically high 1.4-6.5 [facility] Comment on above: Performed By: #### C VDTBH #### [facility] [address] [place] [address] Dr. Bruce Nicholas Neutrophils/100 WBC (Bld) 86.5 % Critically high 43.0-75.0 [facility] Comment on above: Performed By: #### C VDTBH #### [facility] [address] [place] [address] Dr. Bruce Nicholas Platelet mean volume (Bld) [Entitic vol] 12.1 fL Normal 9.5-13.5 [facility] Comment on above: Performed By: #### C VDTBH #### [facility] [address] [place] [address] Dr. Bruce Nicholas PLT 205 103/ul Normal 150-450 [facility] Comment on above: Performed By: #### C VDTBH #### [facility] [address] [place] [address] Dr. Bruce Nicholas RBC 4.18 106/ul Critically low 4.70-6.10 [facility] Comment on above: Performed By: #### C VDTBH #### [facility] [address] [address] [address] Bruce Nicholas WBC 9.6 103/ul Normal 4.0-11.0 [facility] Comment on above: Performed By: #### C VDTBH #### [facility] [address] [address] [address] Bruce Nicholas POINT OF CARE GLUCOSEon 10-20 Glucose [Mass/Vol] 121 mg/dL Critically high -106 [facility] Comment on above: Performed By: #### C VDTBH #### [facility] [address] [address] [address] Bruce Nicholas Glucose [Mass/Vol] 126 mg/dL Critically high [facility] Comment on above: Performed By: #### C BC #### [facility] [address] [place] [address] Dr. Bruce Nicholas Glucose [Mass/Vol] 164 mg/dL Critically high [facility]106 [facility] Comment on above: Performed By: #### C BC #### [facility] [address] [address] [address] Bruce Nicholas PROF CHEM 8 (BAS METB)on Anion gap [Moles/Vol] 14.2 mmol/L Normal [facility] Comment on above: Performed By: #### P OCGLUC #### [facility] [address] [address] [address] Bruce Nicholas Calcium [Mass/Vol] 8.9 mg/dL Normal 8.5-10.1 [facility] Comment on above: Performed By: #### P OCGLUC #### [facility] [address] [address] [address] Bruce Nicholas Chloride [Moles/Vol] 107 mmol/L Normal 98-107 [facility] Comment on above: Performed By: #### P OCGLUC #### [facility] [address] [address] [address] Bruce Nicholas CO2 [Moles/Vol] 22.8 mmol/L Normal 21.0-32.0 [facility] Comment on above: Performed By: #### P OCGLUC #### [facility] [address] [address] [address] Bruce Nicholas Creatinine [Mass/Vol] 0.94 mg/dL Normal 0.70-1.30 [facility] Comment on above: Performed By: #### P OCGLUC #### [facility] [address] [address] [address] Bruce Nicholas EGFR-AF CAMBODIAN >60 Normal >=60 [facility] Comment on above: Performed By: #### P OCGLUC #### [facility] [address] [address] [address] Bruce Nicholas EGFR-NON AF CAMBODIAN >60 Normal >=60 [facility] Comment on above: Performed By: #### P OCGLUC #### [facility] [address] [address] [address] Bruce Nicholas Glucose [Mass/Vol] 128 mg/dL Critically high 74-106 [facility] Comment on above: Performed By: #### P OCGLUC #### [facility] [address] [address] [address] Bruce Nicholas Potassium [Moles/Vol] 4.0 mmol/L Normal 3.5-5.1 [facility] Comment on above: Performed By: #### P OCGLUC #### [facility] [address] [address] [address] Bruce Nicholas Sodium [Moles/Vol] 140 mmol/L Normal 136-145 [facility] Comment on above: Performed By: #### P OCGLUC #### [facility] [address] [address] [address] Bruce Nicholas Urea nitrogen [Mass/Vol] 33.0 mg/dL Critically high 7.0-18.0 [facility] Comment on above: Performed By: #### P OCGLUC #### [facility] [address] [address] [address] Bruce Nicholas Urea nitrogen/Creatinine [Mass ratio] 35.1 mg/mg Normal [facility] Comment on above: Performed By: #### P OCGLUC #### [facility] [address] [place] [address] Dr. Bruce Nicholas XR CHEST 2 Von [...] fracture deformities again identified. Electronically authenticated by: ENSIRI HUIZARH Date: 2022-11-08 13:38 Normal [facility] CBC AUTO DIFFon 11-07-2022 BASO # 0.0 103/ul Normal 0.0-0.1 [facility] Comment on above: Performed By: #### C BC #### [facility] [address] [place] [address] Dr. Bruce Nicholas Basophils/100 WBC (Bld) 0.0 % Critically low 0.2-2.0 [facility] Comment on above: Performed By: #### C BC #### [facility] [address] [address] [address] Bruce Nicholas EO # 0.0 103/ul Normal 0.0-0.7 [facility] Comment on above: Performed By: #### C BC #### [facility] [address] [place] [address] Dr. Bruce Nicholas Eosinophils/100 WBC (Bld) 0.0 % Critically low 0.9-7.0 [facility] Comment on above: Performed By: #### C BC #### [facility] [address] [place] [address] Dr. Bruce Nicholas Erythrocyte distribution width (RBC) [Ratio] 16.1 % Critically high 11.0-15.0 [facility] Comment on above: Performed By: #### C BC #### [facility] [address] [place] [address] Dr. Bruce Nicholas Hematocrit (Bld) [Volume fraction] 36.3 % Critically low 42.0-54.0 [facility] Comment on above: Performed By: #### C BC #### [facility] [address] [place] [address] Dr. Bruce Nicholas Hemoglobin (Bld) [Mass/Vol] 11.5 g/dL Critically low 14.0-18.0 [facility] Comment on above: Performed By: #### C BC #### [facility] [address] [place] [address] Dr. Bruce Nicholas IG # 0.07 10e3/ul Critically high 0.00-0.03 [facility] Comment on above: Performed By: #### C BC #### [facility] [address] [place] [address] Dr. Bruce Nicholas IG % 0.6 % Critically high 0.0-0.5 [facility] Comment on above: Performed By: #### C BC #### [facility] [address] [place] [address] Dr. Bruce Nicholas LYMPH # 0.9 103/ul Critically low 1.2-3.8 [facility] Comment on above: Performed By: #### C BC #### [facility] [address] [place] [address] Dr. Bruce Nicholas Lymphocytes/100 WBC (Bld) 7.2 % Critically low 20.5-60.0 [facility] Comment on above: Performed By: #### C BC #### [facility] [address] [place] [address] Dr. Bruce Nicholas MANUAL DIFF REQ NO Normal [facility] Comment on above: Performed By: #### C BC #### [facility] [address] [place] [address] Dr. Bruce Nicholas MCH (RBC) [Entitic mass] 27.7 pg Normal 25.9-34.0 [facility] Comment on above: Performed By: #### C BC #### [facility] [address] [place] [address] Dr. Bruce Nicholas MCHC (RBC) [Mass/Vol] 31.7 g/dL Normal 29.9-35.2 [facility] Comment on above: Performed By: #### C BC #### [facility] [address] [place] [address] Dr. Bruce Nicholas MCV (RBC) [Entitic vol] 87.5 fL Normal 80.0-94.0 [facility] Comment on above: Performed By: #### C BC #### [facility] [address] [place] [address] Dr. Bruce Nicholas MONO # 0.3 103/ul Normal 0.3-0.8 [facility] Comment on above: Performed By: #### C BC #### [facility] [address] [place] [address] Dr. Bruce Nicholas Monocytes/100 WBC (Bld) 2.9 % Normal 1.7-12.0 [facility] Comment on above: Performed By: #### C BC #### [facility] [address] [place] [address] Dr. Bruce Nicholas NEUT # 10.6 103/ul Critically high 1.4-6.5 [facility] Comment on above: Performed By: #### C BC #### [facility] [address] [place] [address] Dr. Bruce Nicholas Neutrophils/100 WBC (Bld) 89.3 % Critically high 43.0-75.0 [facility] Comment on above: Performed By: #### C BC #### [facility] [address] [place] [address] Dr. Bruce Nicholas Platelet mean volume (Bld) [Entitic vol] 12.4 fL Normal 9.5-13.5 [facility] Comment on above: Performed By: #### C BC #### [facility] [address] [place] [address] Dr. Bruce Nicholas PLT 195 103/ul Normal 150-450 [facility] Comment on above: Performed By: #### C BC #### [facility] [address] [address] [address] Bruce Nicholas RBC 4.15 106/ul Critically low 4.70-6.10 [facility] Comment on above: Performed By: #### C BC #### [facility] [address] [address] [address] Bruce Nicholas WBC 11.9 103/ul Critically high 4.0-11.0 [facility] Comment on above: Performed By: #### C BC #### [facility] [address] [address] [address] Bruce Nicholas POINT OF CARE GLUCOSEon 10-20 Glucose [Mass/Vol] 145 mg/dL Critically high 74-106 [facility] Comment on above: Performed By: #### P OCGLUC #### [facility] [address] [place] [address] Dr. Bruce Nicholas Glucose [Mass/Vol] 139 mg/dL Critically high 74-106 [facility] Comment on above: Performed By: #### C BC #### [facility] [address] [place] [address] Dr. Bruce Nicholas Glucose [Mass/Vol] 122 mg/dL Critically high 74-106 [facility] Comment on above: Performed By: #### P OCGLUC #### [facility] [address] [place] [address] Dr. Bruce Nicholas PROF CHEM 8 (BAS METB)on Anion gap [Moles/Vol] 14.8 mmol/L Normal [facility] Comment on above: Performed By: #### C BC #### [facility] [address] [place] [address] Dr. Bruce Nicholas Calcium [Mass/Vol] 9.0 mg/dL Normal 8.5-10.1 [facility] Comment on above: Performed By: #### C BC #### [facility] [address] [place] [address] Dr. Bruce Nicholas Chloride [Moles/Vol] 107 mmol/L Normal 98-107 [facility] Comment on above: Performed By: #### C BC #### [facility] [address] [address] [address] Bruce Nicholas CO2 [Moles/Vol] 21.3 mmol/L Normal 21.0-32.0 [facility] Comment on above: Performed By: #### C BC #### [facility] [address] [address] [address] Bruce Nicholas Creatinine [Mass/Vol] 1.11 mg/dL Normal 0.70-1.30 [facility] Comment on above: Performed By: #### C BC #### [facility] [address] [place] [address] Dr. Bruce Nicholas EGFR-AF CAMBODIAN >60 Normal >=60 [facility] Comment on above: Performed By: #### C BC #### [facility] [address] [place] [address] Dr. Bruce Nicholas EGFR-NON AF CAMBODIAN >60 Normal >=60 [facility] Comment on above: Performed By: #### C BC #### [facility] [address] [address] [address] Bruce Nicholas Glucose [Mass/Vol] 158 mg/dL Critically high 74-106 [facility] Comment on above: Performed By: #### C BC #### [facility] [address] [address] [address] Bruce Nicholas Potassium [Moles/Vol] 4.1 mmol/L Normal 3.5-5.1 [facility] Comment on above: Performed By: #### C BC #### [facility] [address] [address] [address] Bruce Nicholas Sodium [Moles/Vol] 139 mmol/L Normal 136-145 [facility] Comment on above: Performed By: #### C BC #### [facility] [address] [address] [address] Bruce Nicholas Urea nitrogen [Mass/Vol] 28.0 mg/dL Critically high 7.0-18.0 [facility] Comment on above: Performed By: #### C BC #### [facility] [address] [address] [address] Bruce Nicholas Urea nitrogen/Creatinine [Mass ratio] 25.2 mg/mg Normal [facility] Comment on above: Performed By: #### C BC #### [facility] [address] [place] [address] Dr. Bruce Nicholas CBC AUTO DIFFon 11-06-2022 BASO # 0.0 103/ul Normal 0.0-0.1 [facility] Comment on above: Performed By: #### C BC #### [facility] [address] [place] [address] Dr. Bruce Nicholas Basophils/100 WBC (Bld) 0.0 % Critically low 0.2-2.0 [facility] Comment on above: Performed By: #### C BC #### [facility] [address] [place] [address] Dr. Bruce Nicholas EO # 0.0 103/ul Normal 0.0-0.7 [facility] Comment on above: Performed By: #### C BC #### [facility] [address] [place] [address] Dr. Bruce Nicholas Eosinophils/100 WBC (Bld) 0.0 % Critically low 0.9-7.0 [facility] Comment on above: Performed By: #### C BC #### [facility] [address] [place] [address] Dr. Bruce Nicholas Erythrocyte distribution width (RBC) [Ratio] 15.8 % Critically high 11.0-15.0 [facility] Comment on above: Performed By: #### C BC #### [facility] [address] [place] [address] Dr. Bruce Nicholas Hematocrit (Bld) [Volume fraction] 37.1 % Critically low 42.0-54.0 [facility] Comment on above: Performed By: #### C BC #### [facility] [address] [place] [address] Dr. Bruce Nicholas Hemoglobin (Bld) [Mass/Vol] 11.7 g/dL Critically low 14.0-18.0 [facility] Comment on above: Performed By: #### C BC #### [facility] [address] [address] [address] Bruce Nicholas IG # 0.03 10e3/ul Normal 0.00-0.03 [facility] Comment on above: Performed By: #### C BC #### [facility] [address] [address] [address] Bruce Nicholas IG % 0.4 % Normal 0.0-0.5 [facility] Comment on above: Performed By: #### C BC #### [facility] [address] [place] [address] Dr. Bruce Nicholas LYMPH # 0.7 103/ul Critically low 1.2-3.8 [facility] Comment on above: Performed By: #### C BC #### [facility] [address] [place] [address] Dr. Bruce Nicholas Lymphocytes/100 WBC (Bld) 9.9 % Critically low 20.5-60.0 [facility] Comment on above: Performed By: #### C BC #### [facility] [address] [place] [address] Dr. Bruce Nicholas MANUAL DIFF REQ NO Normal [facility] Comment on above: Performed By: #### C BC #### [facility] [address] [place] [address] Dr. Bruce Nicholas MCH (RBC) [Entitic mass] 27.3 pg Normal 25.9-34.0 [facility] Comment on above: Performed By: #### C BC #### [facility] [address] [place] [address] Dr. Bruce Nicholas MCHC (RBC) [Mass/Vol] 31.5 g/dL Normal 29.9-35.2 [facility] Comment on above: Performed By: #### C BC #### [facility] [address] [place] [address] Dr. Bruce Nicholas MCV (RBC) [Entitic vol] 86.5 fL Normal 80.0-94.0 [facility] Comment on above: Performed By: #### C BC #### [facility] [address] [address] [address] Bruce Nicholas MONO # 0.1 103/ul Critically low 0.3-0.8 [facility] Comment on above: Performed By: #### C BC #### [facility] [address] [address] [address] Bruce Nicholas Monocytes/100 WBC (Bld) 1.9 % Normal 1.7-12.0 [facility] Comment on above: Performed By: #### C BC #### [facility] [address] [address] [address] Bruce Nicholas NEUT # 6.0 103/ul Normal 1.4-6.5 [facility] Comment on above: Performed By: #### C BC #### [facility] [address] [address] [address] Bruce Nicholas Neutrophils/100 WBC (Bld) 87.8 % Critically high 43.0-75.0 [facility] Comment on above: Performed By: #### C BC #### [facility] [address] [address] [address] Bruce Nicholas Platelet mean volume (Bld) [Entitic vol] 12.4 fL Normal 9.5-13.5 [facility] Comment on above: Performed By: #### C BC #### [facility] [address] [address] [address] Bruce Nicholas PLT 186 103/ul Normal 150-450 [facility] Comment on above: Performed By: #### C BC #### [facility] [address] [address] [address] Bruce Nicholas RBC 4.29 106/ul Critically low 4.70-6.10 [facility] Comment on above: Performed By: #### C BC #### [facility] [address] [address] [address] Bruce Nicholas WBC 6.9 103/ul Normal 4.0-11.0 [facility] Comment on above: Performed By: #### C BC #### [facility] [address] [address] [address] Bruce Nicholas POINT OF CARE GLUCOSEon 10-19 Glucose [Mass/Vol] 139 mg/dL Critically high 74-106 [facility] Comment on above: Performed By: #### P OCGLUC #### [facility] [address] [address] [address] Bruce Nicholas Glucose [Mass/Vol] 129 mg/dL Critically high 74-106 [facility] Comment on above: Performed By: #### P OCGLUC #### [facility] [address] [address] [address] Bruce Nicholas Glucose [Mass/Vol] 128 mg/dL Critically high 74-106 [facility] Comment on above: Performed By: #### P OCGLUC #### [facility] [address] [place] [address] Dr. Bruce Nicholas PROF CHEM 8 (BAS METB)on Anion gap [Moles/Vol] 17.3 mmol/L Normal [facility] Comment on above: Performed By: #### C BC #### [facility] [address] [address] [address] Bruce Nicholas Calcium [Mass/Vol] 9.0 mg/dL Normal 8.5-10.1 [facility] Comment on above: Performed By: #### C BC #### [facility] [address] [address] [address] Bruce Nicholas Chloride [Moles/Vol] 107 mmol/L Normal 98-107 [facility] Comment on above: Performed By: #### C BC #### [facility] [address] [address] [address] Bruce Nicholas CO2 [Moles/Vol] 20.4 mmol/L Critically low 21.0-32.0 [facility] Comment on above: Performed By: #### C BC #### [facility] [address] [place] [address] Dr. Bruce Nicholas Creatinine [Mass/Vol] 1.12 mg/dL Normal 0.70-1.30 [facility] Comment on above: Performed By: #### C BC #### [facility] [address] [address] [address] Bruce Nicholas EGFR-AF CAMBODIAN >60 Normal >=60 [facility] Comment on above: Performed By: #### C BC #### [facility] [address] [address] [address] Bruce Nicholas EGFR-NON AF CAMBODIAN >60 Normal >=60 [facility] Comment on above: Performed By: #### C BC #### [facility] [address] [address] [address] Bruce Nicholas Glucose [Mass/Vol] 184 mg/dL Critically high 74-106 [facility] Comment on above: Performed By: #### C BC #### [facility] [address] [place] [address] Dr. Bruce Nicholas Potassium [Moles/Vol] 3.7 mmol/L Normal 3.5-5.1 [facility] Comment on above: Performed By: #### C BC #### [facility] [address] [place] [address] Dr. Bruce Nicholas Sodium [Moles/Vol] 141 mmol/L Normal 136-145 [facility] Comment on above: Performed By: #### C BC #### [facility] [address] [address] [address] Bruce Nicholas Urea nitrogen [Mass/Vol] 25.0 mg/dL Critically high 7.0-18.0 [facility] Comment on above: Performed By: #### C BC #### [facility] [address] [place] [address] Dr. Bruce Nicholas Urea nitrogen/Creatinine [Mass ratio] 22.3 mg/mg Normal [facility] Comment on above: Performed By: #### C BC #### [facility] [address] [place] [address] Dr. Bruce Nicholas BNPon 11-05-2022 Natriuretic peptide B (Bld) [Mass/Vol] 131.0 pg/mL Normal <=900.0 [facility] Comment on above: Performed By: #### C BC #### [facility] [address] [place] [address] Dr. Bruce Nicholas CARDIAC EAMON ADMITon 023 CK [Catalytic activity/Vol] 44 U/L Normal 39-308 [facility] Comment on above: Performed By: #### C BC #### [facility] [address] [place] [address] Dr. Bruce Nicholas CK.MB [Mass/Vol] 1.08 ng/mL Normal <=3.60 [facility] Comment on above: Performed By: #### C BC #### [facility] [address] [place] [address] Dr. Bruce Nicholas HSTROP 5.2 pg/mL Normal 4.0-76.1 [facility] Comment on above: Result Comment: CUT- OFF POINTS HAVE BEEN ESTABLISHED BASED ON THE FOURTH UNIVERSAL DEFINITIONS OF MYOCARDIAL INFARCTION. THE UPPER REFERENCE LIMIT (URL) OF TROPONIN, DEFINED THE 99TH PERCENTILE OF cTnI DISTRIBUTION IN A REFERENCE POPULATION, HAS BEEN CONFIRMED THE DECISION THRESHOLD FOR VT DIAGNOSIS. Performed By: #### C BC #### [facility] [address] [place] [address] Dr. Bruce Nicholas DAVID 57 ng/mL Normal 16-96 [facility] Comment on above: Performed By: #### C BC #### [facility] [address] [place] [address] Dr. Bruce Nicholas CBC AUTO DIFFon 11-05-2022 BASO # 0.0 103/ul Normal 0.0-0.1 [facility] Comment on above: Performed By: #### C BC #### [facility] [address] [place] [address] Dr. Bruce Nicholas Basophils/100 WBC (Bld) 0.6 % Normal 0.2-2.0 [facility] Comment on above: Performed By: #### C BC #### [facility] [address] [place] [address] Dr. Bruce Nicholas EO # 0.1 103/ul Normal 0.0-0.7 [facility] Comment on above: Performed By: #### C BC #### [facility] [address] [place] [address] Dr. Bruce Nicholas Eosinophils/100 WBC (Bld) 1.3 % Normal 0.9-7.0 [facility] Comment on above: Performed By: #### C BC #### [facility] [address] [place] [address] Dr. Bruce Nicholas Erythrocyte distribution width (RBC) [Ratio] 15.4 % Critically high 11.0-15.0 [facility] Comment on above: Performed By: #### C BC #### [facility] [address] [place] [address] Dr. Bruce Nicholas Hematocrit (Bld) [Volume fraction] 44.9 % Normal 42.0-54.0 [facility] Comment on above: Performed By: #### C BC #### [facility] [address] [place] [address] Dr. Bruce Nicholas Hemoglobin (Bld) [Mass/Vol] 14.0 g/dL Normal 14.0-18.0 [facility] Comment on above: Performed By: #### C BC #### [facility] [address] [place] [address] Dr. Bruce Nicholas IG # 0.02 10e3/ul Normal 0.00-0.03 [facility] Comment on above: Performed By: #### C BC #### [facility] [address] [place] [address] Dr. Bruce Nicholas IG % 0.3 % Normal 0.0-0.5 [facility] Comment on above: Performed By: #### C BC #### [facility] [address] [place] [address] Dr. Bruce Nicholas LYMPH # 2.3 103/ul Normal 1.2-3.8 [facility] Comment on above: Performed By: #### C BC #### [facility] [address] [place] [address] Dr. Bruce Nicholas Lymphocytes/100 WBC (Bld) 31.7 % Normal 20.5-60.0 [facility] Comment on above: Performed By: #### C BC #### [facility] [address] [place] [address] Dr. Bruce Nicholas MANUAL DIFF REQ NO Normal [facility] Comment on above: Performed By: #### C BC #### [facility] [address] [place] [address] Dr. Bruce Nicholas MCH (RBC) [Entitic mass] 27.3 pg Normal 25.9-34.0 [facility] Comment on above: Performed By: #### C BC #### [facility] [address] [place] [address] Dr. Bruce Nicholas MCHC (RBC) [Mass/Vol] 31.2 g/dL Normal 29.9-35.2 [facility] Comment on above: Performed By: #### C BC #### [facility] [address] [place] [address] Dr. Bruce Nicholas MCV (RBC) [Entitic vol] 87.5 fL Normal 80.0-94.0 [facility] Comment on above: Performed By: #### C BC #### [facility] [address] [place] [address] Dr. Bruce Nicholas MONO # 0.5 103/ul Normal 0.3-0.8 [facility] Comment on above: Performed By: #### C BC #### [facility] [address] [place] [address] Dr. Bruce Nicholas Monocytes/100 WBC (Bld) 7.6 % Normal 1.7-12.0 [facility] Comment on above: Performed By: #### C BC #### [facility] [address] [place] [address] Dr. Bruce Nicholas NEUT # 4.2 103/ul Normal 1.4-6.5 [facility] Comment on above: Performed By: #### C BC #### [facility] [address] [place] [address] Dr. Bruce Nicholas Neutrophils/100 WBC (Bld) 58.5 % Normal 43.0-75.0 [facility] Comment on above: Performed By: #### C BC #### [facility] [address] [place] [address] Dr. Bruce Nicholas Platelet mean volume (Bld) [Entitic vol] 12.6 fL Normal 9.5-13.5 [facility] Comment on above: Performed By: #### C BC #### [facility] [address] [place] [address] Dr. Bruce Nicholas PLT 211 103/ul Normal 150-450 [facility] Comment on above: Performed By: #### C BC #### [facility] [address] [place] [address] Dr. Bruce Nicholas RBC 5.13 106/ul Normal 4.70-6.10 [facility] Comment on above: Performed By: #### C BC #### [facility] [address] [place] [address] Dr. Bruce Nicholas WBC 7.1 103/ul Normal 4.0-11.0 [facility] Comment on above: Performed By: #### C BC #### [facility] [address] [place] [address] Dr. Bruce Nicholas CULTURE BLOODon 11-05-2022 Microscopic examination of blood, culture Culture Observations: NO GROWTH AT 5 DAYS. Normal [facility] Comment on above: Performed By: #### C VDTBH #### [facility] [address] [place] [address] Dr. Bruce Nicholas Microscopic examination of blood, culture Culture Observations: NO GROWTH AT 5 DAYS. Normal [facility] Comment on above: Performed By: #### B LDCX1 #### [facility] [address] [place] [address] Dr. Bruce Nicholas Covid-19 PCR ([facility])on 10-19 SARS-CoV-2 (COVID-19) RNA KELLIE+probe Ql (Unsp spec) Not detected Normal NOT DETECTED [facility] Comment on above: Result Comment: When [...] for this test is supported by the [place] of Health and Human Service's declaration that [...] used). Performed By: #### C VDTBH #### [facility] [address] [place] [address] Dr. Bruce Nicholas [facility] Normal [facility] Comment on above: Result Comment: Nega tive for Flu A protein angiten. Infection due to Flu A cannot be ruled out. Flu A angiten in the sample may be below the detection limit of the test. Performed By: #### C BC #### [facility] [address] [place] [address] Dr. Bruce Nicholas INFLUBNEG SEE BELOW Normal [facility] Comment on above: Result Comment: Nega tive for Flu B protein antigen. Infection due to Flu B cannot be ruled out. Flu B antigen in the sample may be below the detection limit of the test. Performed By: #### C BC #### [facility] [address] [place] [address] Dr. Bruce Nicholas INFLUENZA A AG Negative Normal NEGATIVE SEE COMMENT [facility] Comment on above: Performed By: #### C BC #### [facility] [address] [place] [address] Dr. Bruce Nicholas INFLUENZA B AG Negative Normal NEGATIVE SEE COMMENT [facility] Comment on above: Performed By: #### C BC #### [facility] [address] [place] [address] Dr. Bruce Nicholas POINT OF CARE GLUCOSEon - Glucose [Mass/Vol] 190 mg/dL Critically high 74-106 [facility] Comment on above: Performed By: #### P OCGLUC #### [facility] [address] [address] [address] Bruce Nicholas Glucose [Mass/Vol] 129 mg/dL Critically high 74-106 [facility] Comment on above: Performed By: #### C VDTB #### [facility] [address] [place] [address] Dr. Bruce Nicholas Glucose [Mass/Vol] 110 mg/dL Critically high 74-106 [facility] Comment on above: Performed By: #### C BC #### [facility] [address] [place] [address] Dr. Bruce Nicholas PROF CHEM 8 (BAS METB)on Anion gap [Moles/Vol] 16.0 mmol/L Normal [facility] Comment on above: Performed By: #### C BC #### [facility] [address] [place] [address] Dr. Bruce Nicholas Calcium [Mass/Vol] 9.4 mg/dL Normal 8.5-10.1 [facility] Comment on above: Performed By: #### C BC #### [facility] [address] [place] [address] Dr. Bruce Nicholas Chloride [Moles/Vol] 106 mmol/L Normal 98-107 [facility] Comment on above: Performed By: #### C BC #### [facility] [address] [place] [address] Dr. Bruce Nicholas CO2 [Moles/Vol] 25.2 mmol/L Normal 21.0-32.0 [facility] Comment on above: Performed By: #### C BC #### [facility] [address] [place] [address] Dr. Bruce Nicholas Creatinine [Mass/Vol] 1.09 mg/dL Normal 0.70-1.30 [facility] Comment on above: Performed By: #### C BC #### [facility] [address] [place] [address] Dr. Bruce Nicholas EGFR-AF CAMBODIAN >60 Normal >=60 [facility] Comment on above: Performed By: #### C BC #### [facility] [address] [place] [address] Dr. Bruce Nicholas EGFR-NON AF CAMBODIAN >60 Normal >=60 [facility] Comment on above: Performed By: #### C BC #### [facility] [address] [address] [address] Bruce Nicholas Glucose [Mass/Vol] 107 mg/dL Critically high 74-106 [facility] Comment on above: Performed By: #### C BC #### [facility] [address] [address] [address] Bruce Nicholas Potassium [Moles/Vol] 3.2 mmol/L Critically low 3.5-5.1 [facility] Comment on above: Performed By: #### C BC #### [facility] [address] [address] [address] Bruce Nicholas Sodium [Moles/Vol] 144 mmol/L Normal 136-145 [facility] Comment on above: Performed By: #### C BC #### [facility] [address] [address] [address] Bruce Nicholas Urea nitrogen [Mass/Vol] 20.0 mg/dL Critically high 7.0-18.0 [facility] Comment on above: Performed By: #### C BC #### [facility] [address] [address] [address] Bruce Nicholas Urea nitrogen/Creatinine [Mass ratio] 18.3 mg/mg Normal [facility] Comment on above: Performed By: #### C BC #### [facility] [address] [address] [address] Bruce Nicholas XR CHEST 1 Von [...] LIZETH MCDONOUGH Date: 2022-11-05 08:05 Normal [facility] CT LSPINE WO CONon 2 CT [...] by: DON MURRAY Date: 2022-10-09 13:29 Normal [facility] POINT OF CARE GLUCOSEon 09-19 Glucose [Mass/Vol] 81 mg/dL Normal 74-106 [facility] Comment on above: Performed By: #### C VDFRANCISCAN CHILDREN'S #### [facility] [address] [place] [address] Dr. Bruce Nicholas Glucose [Mass/Vol] 69 mg/dL Critically low 74-[address] [facility] Comment on above: Performed By: #### C BC #### [facility] [address] [address] [address] Bruce Nicholas XR MYELOGRAM LSPINE EXPon [...] by: DON MURRAY Date: 2022-10-08 11:11 Normal [facility] COVID-19on 02-18-2022 SARS-CoV-2 (COVID-19) RNA KELLIE+probe Ql (Unsp spec) Not detected Normal NOT DETECTED [facility] Comment on above: Result Comment: Alejo art NAAT: Negative results should be treated as [...] authorized laboratories. Fact sheet for Healthcare Providers: https://www.fda.gov/media/929224/download Fact sheet for Patients: https://www.fda.gov/media/770071/download METHODOLOGY: Isothermal Nucleic Acid Amplification Performed By: #### C OVPC #### [place] [address] COVID-19, Rapidon 02-18-2022 SARS-CoV-2 (COVID-19) RNA KELLIE+probe Ql (Unsp spec) Not detected NOT DETECTED [facility] Comment on above: Rapid NAAT: Negative results [...] authorized laboratories. Fact sheet for Healthcare Providers: https://www.fda.gov/media/199314/download Fact sheet for Patients: https://www.fda.gov/media/105300/download METHODOLOGY: Isothermal Nucleic Acid Amplification Performed at [address] GLUCOSE POCon 02-18-2022 Glucose [Mass/Vol] 100 mg/dL Normal 70-108 [facility] Comment on above: Performed By: #### P OCGL #### [place] [address] Glucose [Mass/Vol] 107 mg/dL Normal 70-108 [facility] Comment on above: Performed By: #### P OCGL #### [place] [address] POCT glucoseon 02-18-2022 Glucose [Mass/Vol] 100 mg/dL 70 - 108 mg/dl [facility] Comment on above: Performed at [facility] [address] [place] [address] Glucose [Mass/Vol] 107 mg/dL 70 - 108 mg/dl [facility] Comment on above: Performed at [facility] [address] [place] [address] GLUCOSE POCon 02-17-2022 Glucose [Mass/Vol] 90 mg/dL Normal 70-108 [facility] Comment on above: Performed By: #### C BCND, PT, APTT, BMP, ANION, EGFR1 #### [place] [id number] Glucose [Mass/Vol] 88 mg/dL Normal 70-108 [facility] Comment on above: Performed By: #### P OCGL #### [facility] [address] [place] [address] Glucose [Mass/Vol] 99 mg/dL Normal 70-108 [facility] Comment on above: Performed By: #### P OCGL #### [facility] [address] [place] [address] POCT glucoseon 02-17-2022 Glucose [Mass/Vol] 90 mg/dL 70 - 108 mg/dl [facility] Comment on above: Performed at [facility] [address] [place] [id number] [place] [address] Glucose [Mass/Vol] 88 mg/dL 70 - 108 mg/dl [facility] Comment on above: Performed at [facility] [address] [place] [id number] [place] [address] Glucose [Mass/Vol] 99 mg/dL 70 - 108 mg/dl [facility] Comment on above: Performed at [facility] [address] [place] [address] [facility] GLUCOSE POCon 02-16-2022 Glucose [Mass/Vol] 116 mg/dL High 70-108 [facility] Comment on above: Performed By: #### P OCGL ####[facility] [place] [address] Glucose [Mass/Vol] 121 mg/dL High 70-108 [facility] Comment on above: Performed By: #### P OCGL #### [address] [address] Glucose [Mass/Vol] 89 mg/dL Normal 70-108 [facility] Comment on above: Performed By: #### C BCND, PT, APTT, BMP, ANION, EGFR1 #### [facility] [address] [place] [address] Glucose [Mass/Vol] 95 mg/dL Normal 70-108 [facility] Comment on above: Performed By: #### C BCND, PT, APTT, BMP, ANION, EGFR1 #### [facility] [address] [place] [address] Glucose [Mass/Vol] 85 mg/dL Normal 70-108 [facility] Comment on above: Performed By: #### C BCND, PT, APTT, BMP, ANION, EGFR1 #### [facility] [address] [place] [address] POCT Glucoseon 02-16-2022 Glucose [Mass/Vol] 121 mg/dL High 70 - 108 mg/dl [facility] Comment on above: Performed at [facility] [address] [place] [address] Interpretation and review of laboratory results Abnormal [facility] POCT glucoseon 02-16-2022 Glucose [Mass/Vol] 116 mg/dL High 70 - 108 mg/dl [facility] Comment on above: Performed at [facility] [address] [place] [address] Interpretation and review of laboratory results Abnormal [facility] Glucose [Mass/Vol] 89 mg/dL 70 - 108 mg/dl [facility] Comment on above: Performed at [facility] [address] [place] [address] Glucose [Mass/Vol] 95 mg/dL 70 - 108 mg/dl [facility] Comment on above: Performed at [facility] [address] [place] [address] Glucose [Mass/Vol] 85 mg/dL 70 - 108 mg/dl [facility] Comment on above: Performed at [facility] [address] [place] [address] ANION GAPon 02-15-2022 Anion gap [Moles/Vol] 8.0 mmol/L Normal 8.0-16.0 [facility] Comment on above: Result Comment: ANIO N GAP = Sodium -(Chloride + CO2) Performed By: #### C BCND, BMP, ANION, EGFR1 ####[facility] [place] [address] Anion Gapon 02-15-2022 Anion gap [Moles/Vol] 8.0 mmol/L 8.0 - 16.0 meq/L [facility] Comment on above: ANION GAP = Sodium - (Chloride + CO2) Performed at [facility] [address] [place], [place] [id number] BASIC METABOL PANELon 2021 Calcium [Mass/Vol] 8.1 mg/dL Low 8.5-10.5 [facility] [facility] Comment on above: Performed By: #### P OCGL #### [facility] [address] [place] [address] Chloride [Moles/Vol] 105 mmol/L Normal 98-111 [facility] Comment on above: Performed By: #### P OCGL #### [facility] [address] [place] [address] CO2 [Moles/Vol] 25 mmol/L Normal 23-33 [facility] Comment on above: Performed By: #### P OCGL #### [facility] [address] [place] [address] Creatinine [Mass/Vol] 1.0 mg/dL Normal 0.4-1.2 [facility] Comment on above: Performed By: #### P OCGL #### [facility] [address] [place] [address] Glucose [Mass/Vol] 101 mg/dL Normal 70-108 [facility] Comment on above: Performed By: #### P OCGL #### [facility] [address] [place] [address] Potassium [Moles/Vol] 3.9 mmol/L Normal 3.5-5.2 [facility] Comment on above: Performed By: #### P OCGL #### [facility] [address] [place] [address] Sodium [Moles/Vol] 138 mmol/L Normal 135-145 [facility] Comment on above: Performed By: #### P OCGL #### [facility] [address] [place] [address] Urea nitrogen [Mass/Vol] 19 mg/dL Normal 7-22 [facility] Comment on above: Performed By: #### P OCGL #### [facility] [address] [place] [address] Basic Metabolic Panel 01-19 Calcium [Mass/Vol] 8.1 mg/dL Low 8.5 - 10. 5 mg/dL [facility] Comment on above: Performed at [facility] [address] [place] [address] Chloride [Moles/Vol] 105 mmol/L 98 - 11 1 meq/L [facility] CO2 [Moles/Vol] 25 mmol/L 23 - 33 meq/L [facility] Creatinine [Mass/Vol] 1 mg/dL 0.4 - 1.2 mg/dL [facility] Glucose [Mass/Vol] 101 mg/dL 70 - 108 mg/dL [facility] Potassium [Moles/Vol] 3.9 mmol/L 3.5 - 5.2 meq/L [facility] Sodium [Moles/Vol] 138 mmol/L 135 - 145 meq/L [facility] Urea nitrogen (BldV) [Mass/Vol] 19 mg/dL 7 - 22 mg/dL [facility] CBCon 02-15-2022 Erythrocyte distribution width (RBC) [Ratio] 13.3 % 11.5 - 14.5 % [facility] Erythrocyte distribution width (RBC) [Ratio] 46.9 fL High 35.0 - 45.0 fL [facility] Hematocrit (Bld) [Volume fraction] 30.1 % Low 42.0 - 52.0 % [facility] Hemoglobin.gastrointes tinal spec 1 Ql (Stl) 9.5 Low [facility] th Interpretation and review of laboratory results Abnormal [facility] MCH (RBC) [Entitic mass] 30.4 pg 26.0 - 33.0 pg [facility] MCHC (RBC) [Mass/Vol] 31.6 g/dL Low [facility] MCV (RBC) [Entitic vol] 96.2 fL High 80.0 - 94.0 fL [facility] Platelet mean volume (Bld) [Entitic vol] 11.7 fL 9.4 - 12.4 fL [facility] Comment on above: Performed at [facility] [address] [place] [address] Platelets (Bld) [#/Vol] 159 10*3/uL [facility] RBC (Bld) [#/Vol] 3.13 10*6/uL Low [facility] WBC (Bld) [#/Vol] 4.3 10*3/uL Low [facility] CBC NO DIFFERENTIALon 2021 Erythrocyte distribution width (RBC) [Ratio] 13.3 % Normal 11.5-14.5 [facility] Comment on above: Performed By: #### P OCGL #### [address] [address] Hematocrit (Bld) [Volume fraction] 30.1 % Low 42.0-52.0 [facility] Comment on above: Performed By: #### P OCGL #### [address] [address] Hemoglobin (Bld) [Mass/Vol] 9.5 g/dL Low 14.0-18.0 [facility] Comment on above: Performed By: #### P OCGL #### [address] [address] MCH (RBC) [Entitic mass] 30.4 pg Normal 26.0-33.0 [facility] Comment on above: Performed By: #### P OCGL #### [address] [address] MCHC (RBC) [Mass/Vol] 31.6 g/dL Low 32.2-35.5 [facility] Comment on above: Performed By: #### P OCGL #### [address] [address] MCV (RBC) [Entitic vol] 96.2 fL High 80.0-94.0 [facility] Comment on above: Performed By: #### P OCGL #### [address] [address] PLATELET 159 thou/mm3 Normal 130-400 [facility] Comment on above: Performed By: #### P OCGL #### [address] [address] Platelet mean volume (Bld) [Entitic vol] 11.7 fL Normal 9.4-12.4 [facility] Comment on above: Performed By: #### P OCGL #### [address] [address] RBC 3.13 mill/mm3 Low 4.70-6.10 [facility] Comment on above: Performed By: #### P OCGL #### [address] [address] RDW-SD 46.9 fL High 35.0-45.0 [facility] Comment on above: Performed By: #### P OCGL #### [facility] [address] [place] [address] WBC 4.3 thou/mm3 Low 4.8-10.8 [facility] Comment on above: Performed By: #### P OCGL #### [facility] [address] [place] [address] GFR, ESTIMATEDon 02-15-2022 GFR/1.73 sq M.predicted MDRD (S/P/Bld) [Vol rate/Area] 75 mL/min/{1.73_m2} Abnormal [facility] Comment on above: Result Comment: Evitag skyla [...] By: #### C BCND, BMP, ANION, EGFR1 ####[facility] [address] [place] [address] GLUCOSE POCon 02-15-2022 Glucose [Mass/Vol] 85 mg/dL Normal 70-108 [facility] Comment on above: Performed By: #### P OCGL #### [facility] [address] [place] [address] Glucose [Mass/Vol] 98 mg/dL Normal 70-108 [facility] Comment on above: Performed By: #### C BCND, PT, APTT, BMP, ANION, EGFR1 #### [facility] [address] [place] [address] Glucose [Mass/Vol] 101 mg/dL Normal 70-108 [facility] Comment on above: Performed By: #### P OCGL ####[facility] [address] [place] [address] Glucose [Mass/Vol] 89 mg/dL Normal 70-108 [facility] Comment on above: Performed By: #### P OCGL #### [facility] [address] [place] [address] Glomerular Filtration Rate, Estimatedon 02-15-2022 GFR/1.73 sq M.predicted MDRD (S/P/Bld) [Vol rate/Area] 75 mL/min/{1.73_m2} Abnormal ml/min/1.7 3m2 [facility] Comment on above: Stage Description GF R, [...] Vol. 139 (2) pg 137-147. Performed at [facility] [address] [place] [address] No Panel Informationon 02-15 Interpretation and review of laboratory results Abnormal [facility] POCT glucoseon 02-15-2022 Glucose [Mass/Vol] 85 mg/dL 70 - 108 mg/dl [facility] Comment on above: Performed at [facility] [address] [place] [address] Glucose [Mass/Vol] 98 mg/dL 70 - 108 mg/dl [facility] Comment on above: Performed at [facility] [address] [place] [address] Glucose [Mass/Vol] 101 mg/dL 70 - 108 mg/dl [facility] Comment on above: Performed at [facility] [address] [place] [address] Glucose [Mass/Vol] 89 mg/dL 70 - 108 mg/dl [facility] Comment on above: Performed at [facility] [address] [place] [address] GLUCOSE POCon 02-14-2022 Glucose [Mass/Vol] 90 mg/dL Normal 70-108 [facility] Comment on above: Performed By: #### C BCND, PT, APTT, BMP, ANION, EGFR1 #### [facility] [address] [place] [address] Glucose [Mass/Vol] 100 mg/dL Normal 70-108 [facility] Comment on above: Performed By: #### C BCND, PT, APTT, BMP, ANION, EGFR1 #### [facility] [address] [place] [address] Glucose [Mass/Vol] 86 mg/dL Normal 70-108 [facility] Comment on above: Performed By: #### C BCND, PT, APTT, BMP, ANION, EGFR1 #### [facility] [address] [place] [address] Glucose [Mass/Vol] 94 mg/dL Normal 70-108 [facility] Comment on above: Performed By: #### P OCGL ####[facility] [address] [place] [address] Glucose [Mass/Vol] 79 mg/dL Normal 70-108 [facility] Comment on above: Performed at [facility] [address] [place] [address] Performed By: #### P OCGL #### [facility] [address] [place] [address] No Panel Informationon 02-14 [facility] POCT glucoseon 02-14-2022 Glucose [Mass/Vol] 90 mg/dL 70 - 108 mg/dl [facility] Comment on above: Performed at [facility] [address] [place] [address] [facility] Glucose [Mass/Vol] 100 mg/dL 70 - 108 mg/dl [facility] Comment on above: Performed at [facility] [address] [place] [address] [facility] Glucose [Mass/Vol] 86 mg/dL 70 - 108 mg/dl [facility] Comment on above: Performed at [facility] [address] [place] [address] [facility] Glucose [Mass/Vol] 94 mg/dL 70 - 108 mg/dl [facility] Comment on above: Performed at [facility] [address] [place] [address] GLUCOSE POCon 02-13-2022 Glucose [Mass/Vol] 96 mg/dL Normal 70-108 [facility] Comment on above: Performed By: #### P OCGL #### [facility] [address] [place] [address] Glucose [Mass/Vol] 85 mg/dL Normal 70-108 [facility] Comment on above: Performed By: #### C BCND, PT, APTT, BMP, ANION, EGFR1 #### [facility] [address] [place] [address] Glucose [Mass/Vol] 95 mg/dL Normal 70-108 [facility] Comment on above: Performed By: #### C BCND, PT, APTT, BMP, ANION, EGFR1 #### [facility] [address] [place] [address] Glucose [Mass/Vol] 82 mg/dL Normal 70-108 [facility] Comment on above: Performed By: #### C BCND, PT, APTT, BMP, ANION, EGFR1 #### [address] [address] POCT glucoseon 02-13-2022 Glucose [Mass/Vol] 96 mg/dL 70 - 108 mg/dl [facility] Comment on above: Performed at [facility] [address] [place] [address] [facility] Glucose [Mass/Vol] 85 mg/dL 70 - 108 mg/dl [facility] Comment on above: Performed at [facility] [address] [place] [id number] [place] [address] Glucose [Mass/Vol] 95 mg/dL 70 - 108 mg/dl [facility] Comment on above: Performed at [facility] [address] [place] [id number] [place] [address] Glucose [Mass/Vol] 82 mg/dL 70 - 108 mg/dl [facility] Comment on above: Performed at [facility] [address] [place] [address] [facility] ANION GAPon 02-12-2022 Anion gap [Moles/Vol] 9.0 mmol/L Normal 8.0-16.0 [facility] Comment on above: Result Comment: ANIO N GAP = Sodium -(Chloride + CO2) Performed By: #### P OCGL #### [facility] [address] [address] Anion Gapon 02-12-2022 Anion gap [Moles/Vol] 9.0 mmol/L 8.0 - 16.0 meq/L [facility] Comment on above: ANION GAP = Sodium - (Chloride + CO2) Performed at [address] [address] BASIC METABOL PANELon 2021 Calcium [Mass/Vol] 8.2 mg/dL Low 8.5-10.5 [facility] Comment on above: Performed By: #### P OCGL #### [facility] [address] [place] [address] Chloride [Moles/Vol] 105 mmol/L Normal 98-111 [facility] Comment on above: Performed By: #### P OCGL #### [address] [address] CO2 [Moles/Vol] 24 mmol/L Normal 23-33 [facility] Comment on above: Performed By: #### P OCGL #### [address] [address] Creatinine [Mass/Vol] 0.9 mg/dL Normal 0.4-1.2 [facility] Comment on above: Performed By: #### P OCGL #### [address] [address] Glucose [Mass/Vol] 66 mg/dL Low 70-108 [facility] Comment on above: Performed By: #### P OCGL #### [address] [address] Potassium [Moles/Vol] 3.9 mmol/L Normal 3.5-5.2 [facility] Comment on above: Performed By: #### P OCGL #### [facility] [address] [place] [address] Sodium [Moles/Vol] 138 mmol/L Normal 135-145 [facility] Comment on above: Performed By: #### P OCGL #### [address] [address] Urea nitrogen [Mass/Vol] 17 mg/dL Normal 7-22 [facility] Comment on above: Performed By: #### P OCGL #### [facility] [address] [place] [address] Basic Metabolic Panelon 01-18 Calcium [Mass/Vol] 8.2 mg/dL Low 8.5 - 10. 5 mg/dL [facility] Comment on above: Performed at [facility] [address] [place] [address] Chloride [Moles/Vol] 105 mmol/L 98 - 11 1 meq/L [facility] CO2 [Moles/Vol] 24 mmol/L 23 - 33 meq/L [facility] Creatinine [Mass/Vol] 0.9 mg/dL 0.4 - 1.2 mg/dL [facility] Glucose [Mass/Vol] 66 mg/dL Low 70 - 108 mg/dL [facility] Potassium [Moles/Vol] 3.9 mmol/L 3.5 - 5.2 meq/L [facility] Sodium [Moles/Vol] 138 mmol/L 135 - 145 meq/L [facility] Urea nitrogen (BldV) [Mass/Vol] 17 mg/dL 7 - 22 mg/dL [facility] CBCon 02-12-2022 Erythrocyte distribution width (RBC) [Ratio] 13.8 % 11.5 - 14.5 % [facility] Erythrocyte distribution width (RBC) [Ratio] 49.3 fL High 35.0 - 45.0 fL [facility] Hematocrit (Bld) [Volume fraction] 32.0 % Low 42.0 - 52.0 % [facility] Hemoglobin.gastrointes tinal spec 1 Ql (Stl) 9.8 Low [facility] Interpretation and review of laboratory results Abnormal [facility] MCH (RBC) [Entitic mass] 29.8 pg 26.0 - 33.0 pg [facility] MCHC (RBC) [Mass/Vol] 30.6 g/dL Low [facility] MCV (RBC) [Entitic vol] 97.3 fL High 80.0 - 94.0 fL [facility] Platelet mean volume (Bld) [Entitic vol] 12.3 fL 9.4 - 12.4 fL [facility] Comment on above: Performed at [facility] [address] [place] [address] Platelets (Bld) [#/Vol] 142 10*3/uL [facility] RBC (Bld) [#/Vol] 3.29 10*6/uL Low [facility] WBC (Bld) [#/Vol] 5.1 10*3/uL [facility] CBC NO DIFFERENTIALon 2021 Erythrocyte distribution width (RBC) [Ratio] 13.8 % Normal 11.5-14.5 [facility] Comment on above: Performed By: #### P OCGL #### [address] [address] Hematocrit (Bld) [Volume fraction] 32.0 % Low 42.0-52.0 [facility] Comment on above: Performed By: #### P OCGL #### [address] [address] Hemoglobin (Bld) [Mass/Vol] 9.8 g/dL Low 14.0-18.0 [facility] Comment on above: Performed By: #### P OCGL #### [address] [address] MCH (RBC) [Entitic mass] 29.8 pg Normal 26.0-33.0 [facility] Comment on above: Performed By: #### P OCGL #### [address] [address] MCHC (RBC) [Mass/Vol] 30.6 g/dL Low 32.2-35.5 [facility] Comment on above: Performed By: #### P OCGL #### [address] [address] MCV (RBC) [Entitic vol] 97.3 fL High 80.0-94.0 [facility] Comment on above: Performed By: #### P OCGL #### [address] [address] PLATELET 142 thou/mm3 Normal 130-400 [facility] Comment on above: Performed By: #### P OCGL #### [address] [address] Platelet mean volume (Bld) [Entitic vol] 12.3 fL Normal 9.4-12.4 [facility] Comment on above: Performed By: #### P OCGL #### [facility] [address] [address] RBC 3.29 mill/mm3 Low 4.70-6.10 [facility] Comment on above: Performed By: #### P OCGL #### [address] [address] RDW-SD 49.3 fL High 35.0-45.0 [facility] Comment on above: Performed By: #### P OCGL #### [address] [address] WBC 5.1 thou/mm3 Normal 4.8-10.8 [facility] Comment on above: Performed By: #### P OCGL #### [address] [address] GFR, ESTIMATEDon 02-12-2022 GFR/1.73 sq M.predicted MDRD (S/P/Bld) [Vol rate/Area] 85 mL/min/{1.73_m2} Abnormal [facility] Comment on above: Result Comment: Lilliam crum [...] 137-147. Performed By: #### P OCGL #### [address] [address] GLUCOSE POCon 02-12-2022 Glucose [Mass/Vol] 95 mg/dL Normal 70-108 [facility] Comment on above: Performed By: #### P OCGL #### [address] [address] Glucose [Mass/Vol] 84 mg/dL Normal 70-108 [facility] Comment on above: Performed By: #### C BCND, PT, APTT, BMP, ANION, EGFR1 #### [facility] [address] [place] [address] Glucose [Mass/Vol] 86 mg/dL Normal 70-108 [facility] Comment on above: Performed By: #### P OCGL ####[facility] [address] [place] [address] Glucose [Mass/Vol] 90 mg/dL Normal 70-108 [facility] Comment on above: Performed By: #### P OCGL ####[facility] [address] [place] [address] Glomerular Filtration Rate, Estimatedon 02-12-2022 GFR/1.73 sq M.predicted MDRD (S/P/Bld) [Vol rate/Area] 85 mL/min/{1.73_m2} Abnormal ml/min/1.7 3m2 [facility] Comment on above: Stage Description GF R, [...] Vol. 139 (2) pg 137-147. Performed at [facility] [address] [place] [address] No Panel Informationon 02-12 Interpretation and review of laboratory results Abnormal [facility] POCT glucoseon 02-12-2022 Glucose [Mass/Vol] 95 mg/dL 70 - 108 mg/dl [facility] Comment on above: Performed at [facility] [address] [place] [address] Glucose [Mass/Vol] 84 mg/dL 70 - 108 mg/dl [facility] Comment on above: Performed at [facility] [address] [place] [address] Glucose [Mass/Vol] 86 mg/dL 70 - 108 mg/dl [facility] Comment on above: Performed at [facility] [address] [place] [address] Glucose [Mass/Vol] 90 mg/dL 70 - 108 mg/dl [facility] Comment on above: Performed at [facility] [address] [place] [address] [facility] CBCon 02-11-2022 Erythrocyte distribution width (RBC) [Ratio] 13.7 % 11.5 - 14.5 % [facility] Erythrocyte distribution width (RBC) [Ratio] 48.8 fL High 35.0 - 45.0 fL [facility] Hematocrit (Bld) [Volume fraction] 31.5 % Low 42.0 - 52.0 % [facility] Hemoglobin.gastrointes tinal spec 1 Ql (Stl) 9.8 Low [facility] th Interpretation and review of laboratory results Abnormal [facility] MCH (RBC) [Entitic mass] 30.2 pg 26.0 - 33.0 pg [facility] MCHC (RBC) [Mass/Vol] 31.1 g/dL Low [facility] MCV (RBC) [Entitic vol] 97.2 fL High 80.0 - 94.0 fL [facility] Platelet mean volume (Bld) [Entitic vol] 12.8 fL High 9.4 - 12.4 fL [facility] Comment on above: Performed at [facility] [address] [place] [address] Platelets (Bld) [#/Vol] 122 10*3/uL Low [facility] RBC (Bld) [#/Vol] 3.24 10*6/uL Low [facility] WBC (Bld) [#/Vol] 5.7 10*3/uL [facility] CBC NO DIFFERENTIALon 2021 Erythrocyte distribution width (RBC) [Ratio] 13.7 % Normal 11.5-14.5 [facility] Comment on above: Performed By: #### P OCGL #### [facility] [address] [place] [address] Hematocrit (Bld) [Volume fraction] 31.5 % Low 42.0-52.0 [facility] Comment on above: Performed By: #### P OCGL #### [facility] [address] [place] [address] Hemoglobin (Bld) [Mass/Vol] 9.8 g/dL Low 14.0-18.0 [facility] Comment on above: Performed By: #### P OCGL #### [address] [address] MCH (RBC) [Entitic mass] 30.2 pg Normal 26.0-33.0 [facility] Comment on above: Performed By: #### P OCGL #### [address] [address] MCHC (RBC) [Mass/Vol] 31.1 g/dL Low 32.2-35.5 [facility] Comment on above: Performed By: #### P OCGL #### [address] [address] MCV (RBC) [Entitic vol] 97.2 fL High 80.0-94.0 [facility] Comment on above: Performed By: #### P OCGL #### [address] [address] PLATELET 122 thou/mm3 Low 130-400 [facility] Comment on above: Performed By: #### P OCGL #### [address] [address] Platelet mean volume (Bld) [Entitic vol] 12.8 fL High 9.4-12.4 [facility] Comment on above: Performed By: #### P OCGL #### [address] [address] RBC 3.24 mill/mm3 Low 4.70-6.10 [facility] Comment on above: Performed By: #### P OCGL #### [address] [address] RDW-SD 48.8 fL High 35.0-45.0 [facility] Comment on above: Performed By: #### P OCGL #### [address] [address] WBC 5.7 thou/mm3 Normal 4.8-10.8 [facility] Comment on above: Performed By: #### P OCGL #### [address] [address] GLUCOSE POCon 02-11-2022 Glucose [Mass/Vol] 116 mg/dL High 70-108 [facility] Comment on above: Performed By: #### P OCGL #### [facility] [address] [place] [address] Glucose [Mass/Vol] 87 mg/dL Normal 70-108 [facility] Comment on above: Performed By: #### C BCND, PT, APTT, BMP, ANION, EGFR1 #### [facility] [address] [place] [address] Glucose [Mass/Vol] 90 mg/dL Normal 70-108 [facility] Comment on above: Performed By: #### P OCGL #### [facility] [address] [place] [address] Glucose [Mass/Vol] 112 mg/dL High 70-108 [facility] Comment on above: Performed By: #### C BCND, PT, APTT, BMP, ANION, EGFR1 #### [address] [address] POCT Glucoseon 02-11-2022 Glucose [Mass/Vol] 87 mg/dL 70 - 108 mg/dl [facility] Comment on above: Performed at [facility] [address] [place] [id number] [place] [address] Glucose [Mass/Vol] 90 mg/dL 70 - 108 mg/dl [facility] Comment on above: Performed at [facility] [address] [place] [id number] [place] [address] Glucose [Mass/Vol] 112 mg/dL High 70 - 108 mg/dl [facility] Comment on above: Performed at [facility] [address] [place] [address] Interpretation and review of laboratory results Abnormal [facility] POCT glucoseon 02-11-2022 Glucose [Mass/Vol] 116 mg/dL High 70 - 108 mg/dl [facility] Comment on above: Performed at [facility] [address] [place] [address] Interpretation and review of laboratory results Abnormal [facility] VITAMIN B12 FOLATEon 022 Cobalamin (Vitamin B12) [Mass/Vol] 386 pg/mL Normal 211-911 [facility] Comment on above: Performed By: #### C BCND, PT, APTT, BMP, ANION, EGFR1 #### [facility] [address] [place] [address] FOLATE 7.5 ng/mL Normal 4.8-24.2 [facility] Comment on above: Performed By: #### C BCND, PT, APTT, BMP, ANION, EGFR1 #### [facility] [address] [place] [address] Vitamin B12 & Folateon 02-11 Cobalamin (Vitamin B12) [Mass/Vol] 386 pg/mL 211 - 911 pg/mL [facility] [employer] Folate 7.5 ng/mL 4.8 - 24.2 ng/mL [facility] Comment on above: Performed at [facility] [address] [place] [id number] [place] [address] CORTISOLon 02-10-2022 CORTISOL SPECIMEN 60 Minute Normal [facility] Comment on above: Performed By: #### P OCGL #### [employer] [address] [place] [address] ECHO Complete 2D W Doppler W Coloron 02-10-2022 Transthoracic Echocardiography Report (TTE) Demographics Patient Name SUNNY Cox Gender Male MR # [id number] Race Ethnicity Room Number 0025 Date of Study 02/10/2022 Number Date of 1960 Referring Physician Bala Schrader MD Age 61 year(s) Director Physical Therapy Lyn Prince [facility] Interpreting Beata Leahy MD Physician Procedure Type [...] Name SUNNY Cox Gender Male MR # [id number] Race Ethnicity Room Number 0025 Date of Study 02/10/2022 Number Date of 1960 Referring Physician Bala Schrader MD Age 61 year(s) Director Physical Therapy Lyn Prince [facility] Interpreting Beata Leahy MD Physician Procedure Type [...] E/E' lateral: 7.08 MR Velocity: 463 cm/s [id number]%3d%3d [employer] Work Phone: ECHO Complete 2D W Doppler W ColorOrdered By: Armond Cota on 02-10-2022 [employer] Phone: ECHOCARDIOGRAM COMPLETE 2D W DOPPLER W COLORon 02-10-2022 ECHOCARDIOGRAM COMPLETE 2D W DOPPLER W COLOR Transthoracic Echocardiography Report (TTE) Demographics Patient Name SUNNY Cox Gender Male MR # [id number] Race Ethnicity Room Number 0025 Date of Study 02/10/2022 Number Date of 1960 Referring Physician Bala Schrader MD Age 61 year(s) Director Physical Therapy Lyn Prince [facility] Interpreting Beata Leahy MD [...] E/E' lateral: 7.08 MR Velocity: 463 cm/s [id number]%3d%3d Normal [facility] GLUCOSE POCon 02-10-2022 Glucose [Mass/Vol] 113 mg/dL High 70-108 [facility] Comment on above: Performed By: #### C BCND, PT, APTT, BMP, ANION, EGFR1 #### [facility] [address] [place] [address] Glucose [Mass/Vol] 110 mg/dL High 70-108 [facility] Comment on above: Performed By: #### P OCGL #### [employer] [address] [place] [address] Glucose [Mass/Vol] 136 mg/dL High 70-108 [facility] Comment on above: Performed By: #### C BCND, PT, APTT, BMP, ANION, EGFR1 #### [employer] [address] [place] [address] Glucose [Mass/Vol] 125 mg/dL High 70-108 [facility] Comment on above: Performed By: #### P OCGL ####[facility] [address] [place] [address] POCT Glucoseon 02-10-2022 Glucose [Mass/Vol] 113 mg/dL High 70 - 108 mg/dl [facility] Comment on above: Performed at [facility] [address] [place] [address] Interpretation and review of laboratory results Abnormal [facility] Glucose [Mass/Vol] 110 mg/dL High 70 - 108 mg/dl [facility] Comment on above: Performed at [facility] [address] [place] [address] Interpretation and review of laboratory results Abnormal [facility] Glucose [Mass/Vol] 136 mg/dL High 70 - 108 mg/dl [facility] Comment on above: Performed at [facility] [address] [place] [address] Interpretation and review of laboratory results Abnormal [facility] Glucose [Mass/Vol] 125 mg/dL High 70 - 108 mg/dl [facility] Comment on above: Performed at [facility] [address] [place] [address] Interpretation and review of laboratory results Abnormal [facility] TSHon 02-10-2022 Interpretation and review of laboratory results Abnormal [facility] TSH Qn 0.354 m[IU]/L Low [facility] Comment on above: Performed at [facility] [address] [place] [address] TSH THIRD GENERATIONon 02-10 TSH THIRD GENERATION 0.354 uIU/mL Low 0.400-4 .20 0 [facility] Comment on above: Performed By: #### P OCGL #### [place] [address] CBC WITH DIFFERENTIALon 01-18 ABS BASOPHILS 0.0 thou/mm3 Normal 0.0-0.1 [facility] Comment on above: Performed By: #### C BCND, PT, APTT, BMP, ANION, EGFR1 #### [place] [address] ABS EOSINOPHILS 0.1 thou/mm3 Normal 0.0-0.4 [facility] Comment on above: Performed By: #### C BCND, PT, APTT, BMP, ANION, EGFR1 #### [place] [address] ABS IMMATURE GRANS (IG) 0.02 thou/mm3 Normal 0.00-0.07 [facility] Comment on above: Performed By: #### C BCND, PT, APTT, BMP, ANION, EGFR1 #### [place] [address] ABS LYMPHOCYTES 1.3 thou/mm3 Normal 1.0-4.8 [facility] Comment on above: Performed By: #### C BCND, PT, APTT, BMP, ANION, EGFR1 #### [place] [address] ABS MONOCYTES 0.6 thou/mm3 Normal 0.4-1.3 [facility] Comment on above: Performed By: #### C BCND, PT, APTT, BMP, ANION, EGFR1 #### [place] [address] ABS NEUTROPHILS 4.3 thou/mm3 Normal 1.8-7.7 [facility] Comment on above: Performed By: #### C BCND, PT, APTT, BMP, ANION, EGFR1 #### [place] [address] Basophils/100 WBC (Bld) 0.3 % Normal [facility] Comment on above: Performed By: #### C BCND, PT, APTT, BMP, ANION, EGFR1 #### [place] [address] Eosinophils/100 WBC (Bld) 1.4 % Normal [facility] Comment on above: Performed By: #### C BCND, PT, APTT, BMP, ANION, EGFR1 #### [place] [address] Erythrocyte distribution width (RBC) [Ratio] 13.3 % Normal 11.5-14.5 [facility] Comment on above: Performed By: #### C BCND, PT, APTT, BMP, ANION, EGFR1 #### [address] [address] Hematocrit (Bld) [Volume fraction] 34.3 % Low 42.0-52.0 [facility] Comment on above: Performed By: #### C BCND, PT, APTT, BMP, ANION, EGFR1 #### [place] [address] Hemoglobin (Bld) [Mass/Vol] 10.8 g/dL Low 14.0-18.0 [facility] Comment on above: Performed By: #### C BCND, PT, APTT, BMP, ANION, EGFR1 #### [place] [address] IMMATURE GRANS (IG) 0.3 % Normal [facility] Comment on above: Performed By: #### C BCND, PT, APTT, BMP, ANION, EGFR1 #### [place] [address] Lymphocytes/100 WBC (Bld) 20.2 % Normal [facility] Comment on above: Performed By: #### C BCND, PT, APTT, BMP, ANION, EGFR1 #### [place] [address] MCH (RBC) [Entitic mass] 30.2 pg Normal 26.0-33.0 [facility] Comment on above: Performed By: #### C BCND, PT, APTT, BMP, ANION, EGFR1 #### [place] [address] MCHC (RBC) [Mass/Vol] 31.5 g/dL Low 32.2-35.5 [facility] Comment on above: Performed By: #### C BCND, PT, APTT, BMP, ANION, EGFR1 #### [place] [id number] MCV (RBC) [Entitic vol] 95.8 fL High 80.0-94.0 [facility] Comment on above: Performed By: #### C BCND, PT, APTT, BMP, ANION, EGFR1 #### [place] [id number] Monocytes/100 WBC (Bld) 9.5 % Normal [facility] Comment on above: Performed By: #### C BCND, PT, APTT, BMP, ANION, EGFR1 #### [address] [address] Neutrophils/100 WBC (Bld) 68.3 % Normal [facility] Comment on above: Performed By: #### C BCND, PT, APTT, BMP, ANION, EGFR1 #### [place] [address] NRBC 0 /100 wbc Normal [facility] Comment on above: Performed By: #### C BCND, PT, APTT, BMP, ANION, EGFR1 #### [address] [address] PLATELET 98 thou/mm3 Low 130-400 [facility] Comment on above: Performed By: #### C BCND, PT, APTT, BMP, ANION, EGFR1 #### [place] [address] Platelet mean volume (Bld) [Entitic vol] 12.9 fL High 9.4-12.4 [facility] Comment on above: Performed By: #### C BCND, PT, APTT, BMP, ANION, EGFR1 #### [address] [address] RBC 3.58 mill/mm3 Low 4.70-6.10 [facility] Comment on above: Performed By: #### C BCND, PT, APTT, BMP, ANION, EGFR1 #### [address] [address] RDW-SD 47.0 fL High 35.0-45.0 [facility] Comment on above: Performed By: #### C BCND, PT, APTT, BMP, ANION, EGFR1 #### [address] [address] WBC 6.3 thou/mm3 Normal 4.8-10.8 [facility] Comment on above: Performed By: #### C BCND, PT, APTT, BMP, ANION, EGFR1 #### [facility] [address] [place] [address] CBC with Auto Differentialon 02-09-2022 Basophils (Bld) [#/Vol] 0.0 10*3/uL [facility] Basophils/100 WBC (Bld) 0.3 % [facility] Eosinophils Absolute 0.1 [facility] Eosinophils/100 WBC (Bld) 1.4 % [facility] Erythrocyte distribution width (RBC) [Ratio] 13.3 % 11.5 - 14.5 % [facility] Erythrocyte distribution width (RBC) [Ratio] 47 fL High 35.0 - 45.0 fL [facility] Hematocrit (Bld) [Volume fraction] 34.3 % Low 42.0 - 52.0 % [facility] Hemoglobin.gastrointes tinal spec 1 Ql (Stl) 10.8 Low [facility] th Immature Grans (Abs) 0.02 [facility] Immature granulocytes/100 WBC (Bld) 0.3 % [facility] Interpretation and review of laboratory results Abnormal [facility] Lymphocytes Absolute 1.3 [facility] Lymphocytes/100 WBC (Bld) 20.2 % [facility] MCH (RBC) [Entitic mass] 30.2 pg 26.0 - 33.0 pg [facility] MCHC (RBC) [Mass/Vol] 31.5 g/dL Low [facility] MCV (RBC) [Entitic vol] 95.8 fL High 80.0 - 94.0 fL [facility] Monocytes Absolute 0.6 [facility] Monocytes/100 WBC (Bld) 9.5 % [facility] nRBC 0 /100 wbc [facility] Comment on above: Performed at [facility] [address] [place] [address] Platelet mean volume (Bld) [Entitic vol] 12.9 fL High 9.4 - 12.4 fL [facility] Platelets (Bld) [#/Vol] 98 10*3/uL Low [facility] RBC (Bld) [#/Vol] 3.58 10*6/uL Low [facility] Segmented neutrophils/100 WBC (Bld) 68.3 % [facility] Segs Absolute 4.3 [facility] h WBC (Bld) [#/Vol] 6.3 10*3/uL [facility] CORTISOLon 02-09-2022 CORTISOL 15.55 ug/dL Normal [facility] Comment on above: Result Comment: Refe rence ranges AM serum (7-9AM): 4.82-19.5 ug/dl PM serum (3-5PM): 2.47-11.9 ug/dl Performed By: #### P OCGL #### [employer] [address] [address] CORTISOL 21.14 ug/dL Normal [facility] Comment on above: Result Comment: Refe rence ranges AM serum (7-9AM): 4.82-19.5 ug/dl PM serum (3-5PM): 2.47-11.9 ug/dl Performed By: #### P OCGL #### [employer] [address] [address] CORTISOL SPECIMEN 30 Minute Normal [facility] Comment on above: Performed By: #### P OCGL #### [employer] [address] [place] [address] CORTISOL SPECIMEN Baseline Normal [facility] Comment on above: Performed By: #### P OCGL #### [employer] [address] [address] CORTISOL 7.85 ug/dL Normal [facility] Comment on above: Result Comment: Refe rence ranges AM serum (7-9AM): 4.82-19.5 ug/dl PM serum (3-5PM): 2.47-11.9 ug/dl Performed By: #### P OCGL #### [employer] [address] [address] CORTISOL SPECIMEN AM Specimen Normal [facility] Comment on above: Performed By: #### P OCGL #### [employer] [address] [address] CORTISOL 4.35 ug/dL Normal [facility] Comment on above: Result Comment: Refe rence ranges AM serum (7-9AM): 4.82-19.5 ug/dl PM serum (3-5PM): 2.47-11.9 ug/dl Performed By: #### P OCGL #### [employer] [address] [place] [address] Cortisol Totalon 02-09-2022 Cortisol 21.14 ug/dL [facility] [employer] Comment on above: Reference ranges AM serum (7-9AM): 4.82-19.5 ug/dl PM serum (3-5PM): 2.47-11.9 ug/dl Cort[facility] Collection Info 60 Minute [employer] Comment on above: Performed at [facility] [address] [place] [address] Cortisol 15.55 ug/dL [facility] Comment on above: Reference ranges AM serum (7-9AM): 4.82-19.5 ug/dl PM serum (3-5PM): 2.47-11.9 ug/dl Cort[facility] Collection Info 30 Minute [employer] Comment on above: Performed at [facility] [address] [place] [address] Cortisol 4.35 ug/dL [facility] Comment on above: Reference ranges AM serum (7-9AM): 4.82-19.5 ug/dl PM serum (3-5PM): 2.47-11.9 ug/dl [employer] AM Specimen [employer] Comment on above: Performed at [facility] [address] [place] [address] Cortisol, 0 minuteson 2021 Cortisol 7.85 ug/dL [facility] Comment on above: Reference ranges AM serum (7-9AM): 4.82-19.5 ug/dl PM serum (3-5PM): 2.47-11.9 ug/dl Cort[facility] Collection Info Baseline [facility] Comment on above: Performed at [facility] [address] [place] [address] GLUCOSE POCon 02-09-2022 Glucose [Mass/Vol] 154 mg/dL High 70-108 [facility] Comment on above: Performed By: #### P OCGL #### [employer] [address] [place] [address] Glucose [Mass/Vol] 167 mg/dL High 70-108 [facility] Comment on above: Performed By: #### C BCND, PT, APTT, BMP, ANION, EGFR1 #### [employer] [address] [place] [address] Glucose [Mass/Vol] 121 mg/dL High 70-108 [facility] Comment on above: Performed By: #### P OCGL #### [facility] [address] [place] [address] Glucose [Mass/Vol] 106 mg/dL Normal 70-108 [facility] Comment on above: Performed By: #### P OCGL #### [facility] [address] [place] [address] Glucose [Mass/Vol] 117 mg/dL High 70-108 [facility] Comment on above: Performed By: #### P OCGL #### [facility] [address] [place] [address] POCT Glucoseon 02-09-2022 Glucose [Mass/Vol] 154 mg/dL High 70 - 108 mg/dl [facility] Comment on above: Performed at [facility] [address] [place] [address] Interpretation and review of laboratory results Abnormal [facility] Glucose [Mass/Vol] 167 mg/dL High 70 - 108 mg/dl [facility] Comment on above: Performed at [facility] [address] [place] [address] Interpretation and review of laboratory results Abnormal [facility] Glucose [Mass/Vol] 121 mg/dL High 70 - 108 mg/dl [facility] Comment on above: Performed at [facility] [address] [place] [address] Interpretation and review of laboratory results Abnormal [facility] Glucose [Mass/Vol] 106 mg/dL 70 - 108 mg/dl [facility] Comment on above: Performed at [facility] [address] [place] [address] Health Glucose [Mass/Vol] 117 mg/dL High 70 - 108 mg/dl [facility] Comment on above: Performed at [facility] [address] [place] [address] Interpretation and review of laboratory results Abnormal [facility] ANION GAPon 02-08-2022 Anion gap [Moles/Vol] 9.0 mmol/L Normal 8.0-16.0 [facility] Comment on above: Result Comment: ANIO N GAP = Sodium -(Chloride + CO2) Performed By: #### C BCND, PT, APTT, BMP, ANION, EGFR1 #### [facility] [address] [address] Anion Gapon 02-08-2022 Anion gap [Moles/Vol] 9.0 mmol/L 8.0 - 16.0 meq/L [facility] Comment on above: ANION GAP = Sodium - (Chloride + CO2) Performed at [facility] [address] [place] [address] Anion gap [Moles/Vol] 6.0 mmol/L Low 8.0 - 16.0 meq/L [facility] Comment on above: ANION GAP = Sodium - (Chloride + CO2) Performed at [address] [address] BASIC METABOL PANELon 2021 Calcium [Mass/Vol] 7.8 mg/dL Low 8.5-10.5 [facility] Comment on above: Performed By: #### C BCND, PT, APTT, BMP, ANION, EGFR1 #### [address] [address] Chloride [Moles/Vol] 108 mmol/L Normal 98-111 [facility] Comment on above: Performed By: #### C BCND, PT, APTT, BMP, ANION, EGFR1 #### [address] [address] CO2 [Moles/Vol] 21 mmol/L Low 23-33 [facility] Comment on above: Performed By: #### C BCND, PT, APTT, BMP, ANION, EGFR1 #### [facility] [address] [place] [address] Creatinine [Mass/Vol] 1.0 mg/dL Normal 0.4-1.2 [facility] Comment on above: Performed By: #### C BCND, PT, APTT, BMP, ANION, EGFR1 #### [address] [address] Glucose [Mass/Vol] 112 mg/dL High 70-108 [facility] Comment on above: Performed By: #### C BCND, PT, APTT, BMP, ANION, EGFR1 #### [address] [address] Potassium [Moles/Vol] 4.3 mmol/L Normal 3.5-5.2 [facility] Comment on above: Performed By: #### C BCND, PT, APTT, BMP, ANION, EGFR1 #### [facility] [address] [place] [address] Sodium [Moles/Vol] 138 mmol/L Normal 135-145 [facility] Comment on above: Performed By: #### C BCND, PT, APTT, BMP, ANION, EGFR1 #### [facility] [address] [place] [address] Urea nitrogen [Mass/Vol] 12 mg/dL Normal 7-22 [facility] Comment on above: Performed By: #### C BCND, PT, APTT, BMP, ANION, EGFR1 #### [facility] [address] [place] [address] Basic Metabolic Panel 01-18 Calcium [Mass/Vol] 7.8 mg/dL Low 8.5 - 10. 5 mg/dL [facility] Comment on above: Performed at [facility] [address] [place] [address] Chloride [Moles/Vol] 108 mmol/L 98 - 11 1 meq/L [facility] CO2 [Moles/Vol] 21 mmol/L Low 23 - 33 meq/L [facility] Creatinine [Mass/Vol] 1 mg/dL 0.4 - 1.2 mg/dL [facility] Glucose [Mass/Vol] 112 mg/dL High 70 - 108 mg/dL [facility] Potassium [Moles/Vol] 4.3 mmol/L 3.5 - 5.2 meq/L [facility] Sodium [Moles/Vol] 138 mmol/L 135 - 145 meq/L [facility] Urea nitrogen (BldV) [Mass/Vol] 12 mg/dL 7 - 22 mg/dL [facility] Calcium [Mass/Vol] 7.5 mg/dL Low 8.5 - 10. 5 mg/dL [facility] Comment on above: Performed at [facility] [address] [place] [address] Chloride [Moles/Vol] 109 mmol/L 98 - 11 1 meq/L [facility] CO2 [Moles/Vol] 22 mmol/L Low 23 - 33 meq/L [facility] Creatinine [Mass/Vol] 0.8 mg/dL 0.4 - 1.2 mg/dL [facility] Glucose [Mass/Vol] 104 mg/dL 70 - 108 mg/dL [facility] Potassium [Moles/Vol] 3.8 mmol/L 3.5 - 5.2 meq/L [facility] Sodium [Moles/Vol] 137 mmol/L 135 - 145 meq/L [facility] Urea nitrogen (BldV) [Mass/Vol] 12 mg/dL 7 - 22 mg/dL [facility] CBCon 02-08-2022 Erythrocyte distribution width (RBC) [Ratio] 13.4 % 11.5 - 14.5 % [facility] Erythrocyte distribution width (RBC) [Ratio] 48.5 fL High 35.0 - 45.0 fL [facility] Hematocrit (Bld) [Volume fraction] 33.5 % Low 42.0 - 52.0 % [facility] Hemoglobin.gastrointes tinal spec 1 Ql (Stl) 10.2 Low [facility] th Interpretation and review of laboratory results Abnormal [facility] MCH (RBC) [Entitic mass] 30.1 pg 26.0 - 33.0 pg [facility] MCHC (RBC) [Mass/Vol] 30.4 g/dL Low [facility] MCV (RBC) [Entitic vol] 98.8 fL High 80.0 - 94.0 fL [facility] Platelet mean volume (Bld) [Entitic vol] 12.9 fL High 9.4 - 12.4 fL [facility] Comment on above: Performed at [facility] [address] [place] [address] Platelets (Bld) [#/Vol] 89 10*3/uL Low [facility] RBC (Bld) [#/Vol] 3.39 10*6/uL Low [facility] WBC (Bld) [#/Vol] 6.2 10*3/uL [facility] CBC NO DIFFERENTIALon 2021 Erythrocyte distribution width (RBC) [Ratio] 13.4 % Normal 11.5-14.5 [facility] Comment on above: Performed By: #### P OCGL #### [facility] [address] [place] [address] Hematocrit (Bld) [Volume fraction] 33.5 % Low 42.0-52.0 [facility] Comment on above: Performed By: #### P OCGL #### [address] [address] Hemoglobin (Bld) [Mass/Vol] 10.2 g/dL Low 14.0-18.0 [facility] Comment on above: Performed By: #### P OCGL #### [address] [address] MCH (RBC) [Entitic mass] 30.1 pg Normal 26.0-33.0 [facility] Comment on above: Performed By: #### P OCGL #### [address] [address] MCHC (RBC) [Mass/Vol] 30.4 g/dL Low 32.2-35.5 [facility] Comment on above: Performed By: #### P OCGL #### [address] [address] MCV (RBC) [Entitic vol] 98.8 fL High 80.0-94.0 [facility] Comment on above: Performed By: #### P OCGL #### [address] [address] PLATELET 89 thou/mm3 Low 130-400 [facility] Comment on above: Performed By: #### P OCGL #### [address] [address] Platelet mean volume (Bld) [Entitic vol] 12.9 fL High 9.4-12.4 [facility] Comment on above: Performed By: #### P OCGL #### [address] [address] RBC 3.39 mill/mm3 Low 4.70-6.10 [facility] Comment on above: Performed By: #### P OCGL #### [address] [address] RDW-SD 48.5 fL High 35.0-45.0 [facility] Comment on above: Performed By: #### P OCGL #### [employer] [address] [place] [address] WBC 6.2 thou/mm3 Normal 4.8-10.8 [facility] Comment on above: Performed By: #### P OCGL #### [employer] [address] [place] [address] EKG 12 LeadOrdered By: Susan Carrion on 02-08-2022 Atrial Rate 55 BPM [employer] Work Phone: P Malone 27 degrees [employer] Work Phone: P-R Interval 162 ms [employer] Work Phone: Q-T Interval 460 ms [employer] Work Phone: QRS Duration 94 ms [employer] Work Phone: QTc Calculation (Bazett) 440 ms [employer] Work Phone: R Malone -22 degrees [employer] Work Phone: T Malone 1 degrees [employer] Work Phone: Ventricular Rate 55 BPM [employer] Work Phone: [employer] Work Phone: EKG 12 Leadon 02-08-2022 Sinus bradycardia Otherwise normal ECG When compared with ECG of 23-JAN-2022 11:32, No significant change was found Confirmed by SUSAN CARRION ([id number]) on 02/08/2022 10:35:59 AM [facility] Susan Carrion MD - 02/08/2022 Sinus bradycardia Otherwise normal ECG When compared with ECG of 23-JAN-2022 11:32, No significant change was found Confirmed by SUSAN CARRION ([id number]) on 02/08/2022 10:35:59 AM [employer] Work Phone: EKG 12-LEADon 02-08-2022 EKG 12-LEAD 55 55 162 94 460 440 27 -22 1 Sinus bradycardia Otherwise normal ECG When compared with ECG of 23-JAN-2022 11:32, No significant change was found Confirmed by SUSAN CARRION ([id number]) on 02/08/2022 10:35:59 AM [email or web address]&Date=09-02-20 22&Time=[id number]%3a00 &TestType=ECG&Site=3&Outp utType=PDF&Ext=PDF Normal [facility] GFR, ESTIMATEDon 02-08-2022 GFR/1.73 sq M.predicted MDRD (S/P/Bld) [Vol rate/Area] 75 mL/min/{1.73_m2} Abnormal [facility] Comment on above: Result Comment: Lilliam crum [...] BCND, PT, APTT, BMP, ANION, EGFR1 #### [facility] [address] [place] [address] GLUCOSE POCon 02-08-2022 Glucose [Mass/Vol] 71 mg/dL Normal 70-108 [facility] Comment on above: Performed By: #### P OCGL ####[facility] [address] [place] [address] Glucose [Mass/Vol] 111 mg/dL High 70-108 [facility] Comment on above: Performed By: #### C BCND, PT, APTT, BMP, ANION, EGFR1 #### [employer] [facility] [address] [place] [address] Glucose [Mass/Vol] 66 mg/dL Low 70-108 [facility] Comment on above: Performed By: #### P OCGL #### [facility] [address] [place] [address] Glucose [Mass/Vol] 116 mg/dL High 70-108 [facility] Comment on above: Performed By: #### C BCND, PT, APTT, BMP, ANION, EGFR1 #### [facility] [address] [place] [address] Glucose [Mass/Vol] 68 mg/dL Low 70-108 [facility] Comment on above: Performed By: #### P OCGL #### [facility] [address] [place] [address] Glucose [Mass/Vol] 101 mg/dL Normal 70-108 [facility] Comment on above: Performed By: #### C BCND, PT, APTT, BMP, ANION, EGFR1 #### [facility] [address] [place] [address] Glucose [Mass/Vol] 126 mg/dL High 70-108 [facility] Comment on above: Performed By: #### P OCGL #### [facility] [address] [place] [address] Glomerular Filtration Rate, Estimatedon 02-08-2022 GFR/1.73 sq M.predicted MDRD (S/P/Bld) [Vol rate/Area] 75 mL/min/{1.73_m2} Abnormal ml/min/1.[address] [place] [address] Comment on above: Stage Description GF R, [...] Vol. 139 (2) pg 137-147. Performed at [facility] [address] [address] GFR/1.73 sq M.predicted MDRD (S/P/Bld) [Vol rate/Area] mL/min/{1.73_m2} ml/min/1.[address] [place] [address] Comment on above: Stage Description GF R, [...] Vol. 139 (2) pg 137-147. Performed at [facility] [address] [place] [address] HGB,HCTon 02-08-2022 Hematocrit (Bld) [Volume fraction] 37.3 % Low 42.0-52.0 [facility] Comment on above: Performed By: #### P OCGL #### [facility] [place] [address] Hemoglobin (Bld) [Mass/Vol] 11.4 g/dL Low 14.0-18.0 [facility] Comment on above: Performed By: #### P OCGL #### [address] [address] Hemoglobin and Hematocriton 02-08-2022 Hematocrit (Bld) [Volume fraction] 37.3 % Low 42.0 - 52.0 % [facility] Comment on above: Performed at [facility] [address] [place] [address] Hemoglobin.gastrointes tinal spec 1 Ql (Stl) 11.4 Low [facility] Interpretation and review of laboratory results Abnormal [facility] Hemoglobin and hematocrit, b loodon 02-08-2022 Hematocrit (Bld) [Volume fraction] 36.9 % Low 42.0 - 52.0 % [facility] Comment on above: Performed at [facility] [address] [place] [address] Hemoglobin.gastrointes tinal spec 1 Ql (Stl) 11.6 Low [facility] Interpretation and review of laboratory results Abnormal [facility] No Panel Informationon 02-08 Interpretation and review of laboratory results Abnormal [facility] Interpretation and review of laboratory results Abnormal [facility] POCT Glucoseon 02-08-2022 Glucose [Mass/Vol] 71 mg/dL 70 - 108 mg/dl [facility] Comment on above: Performed at [facility] [address] [place] [address] Glucose [Mass/Vol] 111 mg/dL High 70 - 108 mg/dl [facility] Comment on above: Performed at [facility] [address] [place] [address] Interpretation and review of laboratory results Abnormal [facility] Glucose [Mass/Vol] 66 mg/dL Low 70 - 108 mg/dl [facility] Comment on above: Performed at [facility] [address] [place] [address] Interpretation and review of laboratory results Abnormal [facility] Glucose [Mass/Vol] 116 mg/dL High 70 - 108 mg/dl [facility] Comment on above: Performed at [facility] [address] [place] [address] Interpretation and review of laboratory results Abnormal [facility] Glucose [Mass/Vol] 68 mg/dL Low 70 - 108 mg/dl [facility] Comment on above: Performed at [facility] [address] [place] [address] Interpretation and review of laboratory results Abnormal [facility] Glucose [Mass/Vol] 101 mg/dL 70 - 108 mg/dl [facility] Comment on above: Performed at [facility] [address] [place] [address] Glucose [Mass/Vol] 126 mg/dL High 70 - 108 mg/dl [facility] Comment on above: Performed at [facility] [address] [place] [address] Interpretation and review of laboratory results Abnormal [facility] PROCALCITONINon 02-08-2022 PROCALCITONIN 0.08 ng/mL Normal 0.01-0.09 [facility] Comment on above: Result Comment: Susp ected [...] entered into the Change in Procalcitonin Calculator (www.gquima-mec-iliakacxfy.[employer]) to determine the patient's Mortality Risk Prognosis. In healthy neonates, plasma Procalcitonin (PCT) concentrations increase gradually after , reaching peak values at about 24 hours of age then decrease to normal values below 0.5 ng/mL by 48-72 hours of age. Performed By: #### P OCGL #### [facility] [place] [address] Procalcitoninon 02-08-2022 Procalcitonin 0.08 ng/mL 0.01 - 0.09 ng/mL [facility] Comment on above: Suspected Sepsis: <0.50 ng/mL [...] entered into the Change in Procalcitonin Calculator (www.jacxrb-tfe-neqtuvhmtq.[employer]) to determine the patient's Mortality Risk Prognosis. In healthy neonates, plasma Procalcitonin (PCT) concentrations increase gradually after , reaching peak values at about 24 hours of age then decrease to normal values below 0.5 ng/mL by 48-72 hours of age. Performed at [facility] [address] [place] [address] SCAN OF BLOOD SMEARon 2021 SCAN OF BLOOD SMEAR see below Normal [facility] Comment on above: Result Comment: Sony stafford Exceeded; Scan of Differential Slide Performed Performed By: #### P OCGL #### [facility] [address] [place] [address] Scan of Blood Smearon 2021 SCAN OF BLOOD SMEAR see below [facility] Comment on above: Criteria Exceeded; S can of Differential Slide Performed Performed at [facility] [address] [place] [id number] [place] [address] [facility] XR CHEST PORTABLEon 02-09-20 22 Prominent left basil ar opacity as evidence for atelectasis and/or infiltrate. This report has been created using voice recognition software. It may contain minor errors which are inherent in voice recognition technology. Final report electronically signed by Dr. Romel Maldonado DO, MD on 02/08/2022 10:26 AM [facility] Romel Nguyen DO - 02/08/2022 PROCEDURE: [...] Maldonado DO, MD on 02/08/2022 10:26 AM [facility] Work Phone: Radiology Study observation (narrative) [facility] Phone: XR CHEST PORTABLEOrdered By: Romel Maldonado on 02-08-2022 [facility] [employer] Phone: GLUCOSE POCon 02-07-2022 Glucose [Mass/Vol] 132 mg/dL High 70-108 [facility] Comment on above: Performed By: #### C BCND, PT, APTT, BMP, ANION, EGFR1 #### [facility] [address] [place] [address] Glucose [Mass/Vol] 118 mg/dL High 70-108 [facility] Comment on above: Performed By: #### C BCND, PT, APTT, BMP, ANION, EGFR1 #### [facility] [address] [place] [address] Glucose [Mass/Vol] 77 mg/dL Normal 70-108 [facility] Comment on above: Performed By: #### P OCGL #### [place] [address] POCT Glucoseon 02-07-2022 Glucose [Mass/Vol] 132 mg/dL High 70 - 108 mg/dl [facility] Comment on above: Performed at [facility] [address] [place] [address] Interpretation and review of laboratory results Abnormal [facility] Glucose [Mass/Vol] 118 mg/dL High 70 - 108 mg/dl [facility] Comment on above: Performed at [facility] [address] [place] [address] Interpretation and review of laboratory results Abnormal [facility] Glucose [Mass/Vol] 77 mg/dL 70 - 108 mg/dl [facility] Comment on above: Performed at [facility] [address] [place] [address] [facility] TYPE AND SCREENon 02-07-2022 ABO A [facility] Rh Factor Negative [facility] TYPE AND SCREEN CAPTUREon ABO CAPTURE A Normal [facility] Comment on above: Performed By: #### C BCND, PT, APTT, BMP, ANION, EGFR1 #### [facility] [address] [place] [address] INDIRECT ARVIN CAPTURE Negative Normal [facility] Comment on above: Performed By: #### C BCND, PT, APTT, BMP, ANION, EGFR1 #### [facility] [address] [place] [address] RH CAPTURE (2 D CLONES) Negative Normal [facility] Comment on above: Performed By: #### C BCND, PT, APTT, BMP, ANION, EGFR1 #### [facility] [address] [place] [address] XR LUMBAR SPINE 1 VWon 02-07 XR [...] Wicho Allen MD 02/07/22 Final result Normal [facility] Postop appearance of the lumbar spine. This report has been created using voice recognition software. It may contain minor errors which are inherent in voice recognition technology. Final report electronically signed by Dr. Wicho Allen on 02/07/2022 2:28 PM [facility] MOBILE LATERAL LUMBA R SPINE: CLINICAL INFORMATION: L2 S1 decompression, posterior COMPARISON: Earlier film same date, 1120 hours. TECHNIQUE: A single lateral mobile view of the lumbar spine was obtained following surgery performed by Dr. Loza. FINDINGS: Posterior lumbar fusion has been performed, with the pedicle screws and rods extending from L2 to S1. The lumbar vertebra are normally aligned. [facility] Wicho Heredia MD - 02/07/2022 MOBILE LATERAL [...] Dr. Wicho Allen on 02/07/2022 2:28 PM [employer] Phone: Lateral film of the lumbar spine during surgery. Please refer to the operative note for further details. This report has been created using voice recognition software. It may contain minor errors which are inherent in voice recognition technology. Final report electronically signed by Dr Milton Way on 02/07/2022 2:17 PM [facility] Milton Somers MD - 02/07/2022 PROCEDURE: [...] Dr Milton Way on 02/07/2022 2:17 PM [facility] Work Phone: Radiology Study observation (narrative) [employer] Phone: Radiology Study observation (narrative) [employer] Phone: XR LUMBAR SPINE 1 VWOrdered By: Wicho Allen on 02-07-2022 [employer] Phone: XR LUMBAR SPINE 1 VWOrdered By: Milton Way on 02-07-2022 [facility] ANION GAPon 01-23-2022 Anion gap [Moles/Vol] 10.0 mmol/L Normal 8.0-16.0 [facility] Comment on above: Result Comment: ANIO N GAP = Sodium -(Chloride + CO2) Performed By: #### P OCGL #### [facility] [address] [place] [address] APTTon 01-23-2022 aPTT Coag (Bld) [Time] 35.1 s Normal 22.0-38.0 [facility] Comment on above: Result Comment: Ther apeutic Heparin Reference Range= 60-95 seconds (corresponds to 0.3 to 0.7 u/mL Anti-Xa factor activity) Performed By: #### C BCND, PT, APTT, BMP, ANION, EGFR1 #### [address] [address] BASIC METABOL PANELon 2021 Calcium [Mass/Vol] 9.8 mg/dL Normal 8.5-10.5 [facility] Comment on above: Performed By: #### C BCND, PT, APTT, BMP, ANION, EGFR1 #### [address] [address] Chloride [Moles/Vol] 104 mmol/L Normal 98-111 [facility] Comment on above: Performed By: #### C BCND, PT, APTT, BMP, ANION, EGFR1 #### [address] [address] CO2 [Moles/Vol] 29 mmol/L Normal 23-33 [facility] Comment on above: Performed By: #### C BCND, PT, APTT, BMP, ANION, EGFR1 #### [address] [address] Creatinine [Mass/Vol] 1.0 mg/dL Normal 0.4-1.2 [facility] Comment on above: Performed By: #### C BCND, PT, APTT, BMP, ANION, EGFR1 #### [facility] [address] [place] [address] Glucose [Mass/Vol] 87 mg/dL Normal 70-108 [facility] Comment on above: Performed By: #### C BCND, PT, APTT, BMP, ANION, EGFR1 #### [facility] [address] [place] [address] Potassium [Moles/Vol] 4.6 mmol/L Normal 3.5-5.2 [facility] Comment on above: Performed By: #### C BCND, PT, APTT, BMP, ANION, EGFR1 #### [address] [address] Sodium [Moles/Vol] 143 mmol/L Normal 135-145 [facility] Comment on above: Performed By: #### C BCND, PT, APTT, BMP, ANION, EGFR1 #### [place] [address] Urea nitrogen [Mass/Vol] 21 mg/dL Normal 7-22 [facility] Comment on above: Performed By: #### C BCND, PT, APTT, BMP, ANION, EGFR1 #### [place] [address] CBC NO DIFFERENTIALon 2021 Erythrocyte distribution width (RBC) [Ratio] 13.7 % Normal 11.5-14.5 [facility] Comment on above: Performed By: #### C BCND, PT, APTT, BMP, ANION, EGFR1 #### [place] [address] Hematocrit (Bld) [Volume fraction] 51.9 % Normal 42.0-52.0 [facility] Comment on above: Performed By: #### C BCND, PT, APTT, BMP, ANION, EGFR1 #### [place] [address] Hemoglobin (Bld) [Mass/Vol] 16.3 g/dL Normal 14.0-18.0 [facility] Comment on above: Performed By: #### C BCND, PT, APTT, BMP, ANION, EGFR1 #### [place] [address] MCH (RBC) [Entitic mass] 30.1 pg Normal 26.0-33.0 [facility] Comment on above: Performed By: #### C BCND, PT, APTT, BMP, ANION, EGFR1 #### [place] [address] MCHC (RBC) [Mass/Vol] 31.4 g/dL Low 32.2-35.5 [facility] Comment on above: Performed By: #### C BCND, PT, APTT, BMP, ANION, EGFR1 #### [place] [address] MCV (RBC) [Entitic vol] 95.8 fL High 80.0-94.0 [facility] Comment on above: Performed By: #### C BCND, PT, APTT, BMP, ANION, EGFR1 #### [place] [address] PLATELET 149 thou/mm3 Normal 130-400 [facility] Comment on above: Performed By: #### C BCND, PT, APTT, BMP, ANION, EGFR1 #### [place] [address] Platelet mean volume (Bld) [Entitic vol] 12.6 fL High 9.4-12.4 [facility] Comment on above: Performed By: #### C BCND, PT, APTT, BMP, ANION, EGFR1 #### [place] [address] RBC 5.42 mill/mm3 Normal 4.70-6.10 [facility] Comment on above: Performed By: #### C BCND, PT, APTT, BMP, ANION, EGFR1 #### [place] [address] RDW-SD 48.8 fL High 35.0-45.0 [facility] Comment on above: Performed By: #### C BCND, PT, APTT, BMP, ANION, EGFR1 #### [place] [address] WBC 5.8 thou/mm3 Normal 4.8-10.8 [facility] Comment on above: Performed By: #### C BCND, PT, APTT, BMP, ANION, EGFR1 #### [place] [address] EKG 12-LEADon 01-23-2022 EKG 12-LEAD 55 55 168 90 438 419 24 -23 Sinus bradycardia Otherwise normal ECG No previous ECGs available Confirmed by BALA SCHRADER MD ([id number]) on 01/23/2022 7:54:09 PM [email or web address]=[id number]&Date=04-21-20 22&Time=11%3a32%3a52%3a00 &TestType=ECG&Site=3&Outp utType=PDF&Ext=PDF Normal [facility] GFR, ESTIMATEDon 01-23-2022 GFR/1.73 sq M.predicted MDRD (S/P/Bld) [Vol rate/Area] 75 mL/min/{1.73_m2} Abnormal [facility] Comment on above: Result Comment: Stag e Description GFR, ml/min/1.73 m2 - At increased [...] 137-147. Performed By: #### P OCGL #### [facility] [address] [place] [address] HEMOGLOBIN A1Con 01-23-2022 Glucose [Mass/Vol] 99 mg/dL Normal 70-126 [facility] Comment on above: Performed By: #### C BCND, PT, APTT, BMP, ANION, EGFR1 #### [facility] [address] [place] [address] HbA1c (Bld) [Mass fraction] 5.3 % Normal 4.4-6.4 [facility] Comment on above: Performed By: #### C BCND, PT, APTT, BMP, ANION, EGFR1 #### [facility] [address] [place] [address] NASAL COMPLETE SCREEN RT-PCR on 01-23-2022 MRSA SCREEN RT-PCR Positive Abnormal [facility] Comment on above: Result Comment: MRSA TARGET DNA DETECTED by Real Time - Polymerase Chain Reaction. A positive test result does not necessarily indicate the presence of viable organisms. It is, however, presumptive for the presence of MRSA DNA. . Performed By: #### P OCGL #### [facility] [address] [place] [address] SA SCREEN RT-PCR Positive Abnormal [facility] Comment on above: Result Comment: Stap hylococcus aureus (SA) target DNA DETECTED by Real Time - Polymerase Chain Reaction. A positive test result does not necessarily indicate the presence of viable organisms. It is, however presumptive for the presence of SA DNA. Performed By: #### P OCGL #### [address] [address] PROTHOMBIN TIMEon 01-23-2022 INR Coag (Bld) [Relative time] 1.06 {INR} Normal 0.85-1.13 [facility] Comment on above: Result Comment: ---- -----INDICATION INR Reference Range DVT, PE, AF, AMI, tissue heart valve 2.0 to 3.0 Mechanical prosthetic valves 2.5 to 3.5 Performed By: #### C BCND, PT, APTT, BMP, ANION, EGFR1 #### [address] [address] [facility] CARDIAC STRESS/REST INJE CTIONon 09-05-2021 [facility] CARDIAC STRESS/REST INJECTION Patient Name: ALISIA CORREA STUDY: MYOCARDIAL PERFUSION STRESS TEST WITH LEXISCAN Performing facility: [facility], [address] [place] [address], [address], [place], [place] [address] Provider: Ren Watson MD, FACC PCP: Dr. Ellen Crabtree Supervising provider: Milagros Mcnally MD, FACC INDICATION: Chest Pain; Dyspnea HISTORY: Gender: M; Age: 60 y/o ; Height: 0 cm; Weight: 0 kg. High Cholesterol; Chest Pain; Syncope; Parkinson's Currently smoking. COMPARISON: Previous nuclear testing completed at [facility]. ACCESSION NUMBER(S): [id number]; [id number]; [id number] ORDERING CLINICIAN: REN WATSON TECHNIQUE: ONE DAY [...] Electronically signed by: REN WATSON MD Normal [facility] No Panel Informationon 09-05 Normal -[facility] [facility] [address] [place] Work Phone: Office Visit [...] we can help. You may also call [phone] for free resources and assistance.; Status:Complete - Retrospective Authorization; Done: 16Aug2021 Tobacco Use Screening; Status:Complete; Done: 16Aug2021 Patient Instructions By signing my name below, I, Meghana Castaneda LPN, Scribe, attest that this documentation has [...] of Parkinson's disease followed by neurology from [place] on medical therapy. The patient has been [...] PCP. 7?Parkinson's disease followed by neurology from [place]. 8?obesity, encouraged the patient to reduce caloric [...] History o (more content not included)... Normal [facility] Tobacco Screening.on 021 Fall risk assessment b) One or more fall s in the last year [facility] DO Work Phone: Tobacco use status [facility] a) Yes [facility] [employer] DO Work Phone: Tobacco Screening. Yes [facility] 250 DO Work Phone: CT C-SPINE W RECON DATA -NBo n 09-17-2020 CT C-SPINE W RECON DATA -NB * * *Final Report* * * DATE OF EXAM: Sep 17 2020 12:01PM [facility] 0478 - CT C-SPINE W RECON [...] Counting reference: Craniocervical junction. Anatomic Variants: None. Inspector Scales (topogram) images: Postop changes of the bland. [...] vertebrae with counting from the craniocervical junction. Ram Car Operator: [facility] Transcribe Date/Time: Sep 17 2020 12:05P Dictated by : NICO MARTIN MD This examination was interpreted and the report reviewed and electronically signed by: NICO MARTIN MD on Sep 17 2020 12:08PM EST [id number] [facility] CTA HEAD WO/W IVCONon 2019 CTA HEAD WO/W IVCON * * *Final Report* * * DATE OF EXAM: Sep 17 2020 12:01PM [facility] 0023 - CTA HEAD WO/W IVCON [...] Applicable Spot Sign Number: Not Applicable NECK: Inspector Scales (topogram) images: Postop changes of ACDF at [...] neck arteries. Essentially normal noncontrast CT brain. Ram Car Operator: [facility] Transcribe Date/Time: Sep 17 2020 11:56A Dictated by : NICO MARTIN MD This examination was interpreted and the report reviewed and electronically signed by: NICO MARTIN MD on Sep 17 2020 12:09PM EST [id number] Normal [facility] CTA NECK W IVCONon 0 CTA NECK W IVCON * * *Final Report* * * DATE OF EXAM: Sep 17 2020 12:01PM [facility] 0024 - CTA NECK W IVCON [...] Applicable Spot Sign Number: Not Applicable NECK: Inspector Scales (topogram) images: Postop changes of ACDF at [...] neck arteries. Essentially normal noncontrast CT brain. Ram Car Operator: [facility] Transcribe Date/Time: Sep 17 2020 11:56A Dictated by : NICO MARTIN MD This examination was interpreted and the report reviewed and electronically signed by: NICO MARTIN MD on Sep 17 2020 12:09PM EST [id number] [facility] PROGRESSon 09-17-2020 PROGRESS HNO ID: [id number] Author: OMERO Brownlee Service: Radiology Author Type: Clinical Supervisor Special Effects Type: Progress Notes Filed: 09/17/2020 11:40 AM [...] and Intact, Site disposition Discontinued SIGNED BY: OMERO Brownlee September 17, 2020 11:39 AM [facility] CNPKortney 09-11-2020 CNPN Telephone (AVXRPR) ----- ALISIA CORREA ([id number]) 1960 M Date Time Provider Department 09/11/20 [...] More... Hyperlipidemia [E78.5] 12/07/2017 More... Ulcerative lesion [VFF1397] 12/07/2017 07/21/2019 Shoulder arthritis [M19.019] 12/29/2017 Status [...] of unknown signific*09/15/2018 PD (Parkinson's disease) ([facility]) [G20] 04/13/2019 More... Dysphagia [R13.10] 04/13/2019 Psychosis [...] Encounter Status:Closed by MAKI JEONG on 09/11/[address] [facility] [address] LUMBAR SPINE WO IVCONon 1 [facility] No Panel Informationon 06-21 [facility] CT THORACIC SPINE WO IVCONon 06-15-2020 [facility] ALLIED HEALTHon 05-04-2020 ALLIED HEALTH HNO ID: [id number] Author: Daniela (Rn) FOSTER Castro Service: Infection Prevention Author Type: Registered Nurse Type: Allied Health Filed: 05/04/2020 8:19 AM Note Text: ISOLATION NOTE Admission Date: 05/03/2020 Type of Isolation Recommended: Contact Precautions ([place] Isolation Sign) Indication: Carbapenem-resistant Enterobacteriaceae (CRE) Date Isolation Initiated: 05/04/2020 Anticipated Duration of Isolation: Duration of hospitalization Type and Date of Positive Test(s): urine culture 10/18/2019 SIGNATURE: Daniela Castro RN MSN PATIENT NAME: Alisia Correa DATE: May 04, 2020 TIME: 8:17 AM PAGER/CONTACT #: [phone] Normal [facility] Basic Metabolic Panlon 05-04 Anion gap [Moles/Vol] 8 mmol/L Low 9-18 [facility] Calcium [Mass/Vol] 8.4 mg/dL Low 8.5-10.2 [facility] Chloride [Moles/Vol] 103 mmol/L Normal 97-105 [facility] CO2 [Moles/Vol] 25 mmol/L Normal 22-30 [facility] Creatinine [Mass/Vol] 1.11 mg/dL Normal 0.73-1.22 [facility] eGFR- Amer. >60 Normal [facility] GFR/1.73 sq M predicted among non-blacks MDRD (S/P/Bld) [Vol rate/Area] mL/min/{1.73_m2} Normal [facility] Comment on above: Result Comment: eGFR (Estimated [...] ospital Comment on above: Result Comment: The [place] Diabetes Association (ADA) provides guidance for cutoff [...] Standards of Medical Care in Diabetes 2016, Canadian Diabetes Association. Diabetes Care. 2016.39(Suppl 1). Potassium [Moles/Vol] 4.1 mmol/L Normal 3.7-5.1 [facility] Sodium [Moles/Vol] 136 mmol/L Normal 136-144 [facility] Urea nitrogen [Mass/Vol] 16 mg/dL Normal 9-24 [facility] CASE MANAGEMon 05-04-2020 CASE MANAGEM HNO ID: [id number] Author: Ashley (Rn) FOSTER Sands Service: Care Management Author Type: Registered Nurse Type: Care Mgt Progress Note Filed: 05/04/2020 11:01 AM Note Text: CARE MANAGEMENT PROGRESS NOTE SERVICE DATE: 05/04/2020 SERVICE TIME: 10:59 AM LOS: 0 days Spoke with Titi at [facility] outpatient PT. Appointment scheduled for Monday 05/07 at 1:30 PM. Patient to arrive 15 minutes early. Patient notified. SIGNATURE: Ashley Sands RN PATIENT NAME: Alisia Correa DATE: May 04, 2020 TIME: 10:59 AM PAGER/CONTACT #: [phone] [facility] CASE MGT INIT [facility] 2019 CASE MGT INIT [facility] HNO ID: [id number] Author: Ashley (Rn) FOSTER Sands Service: Care Management Author Type: Registered Nurse Type: Care Mgt Initial Assessment Filed: 05/04/2020 10:16 AM Note Text: CARE MANAGEMENT: ASSESSMENT AND DISCHARGE PLAN SERVICE DATE: May 04, 2020 SERVICE TIME: 10:15 AM PRIMARY CARE PHYSICIAN: Ellen Crabtree DO ADMISSION STATUS: Extended Recovery MEDICAL: [employer] MEDICARE 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 Last discharge within 30 days: No Advance Directive: Current Advance Directive: Health Care Power of Battery Container Finishing Hand;Living Will In Chart: No Digital Manager Attempted to Assist with AD Completion: Yes [...] Information Primary Emergency Contact: Dipti Correa Address: [address] [place] [address] OF [place] Mobile Relation: Spouse Supportive Patient Contact:: Yes [...] for meeting these needs: Outpatient therapy at [place] Patient's perception of need for this admission: hip replacement Medication Adherance I am convinced of the importance of my prescription medication: 0 - Agree Completely I worry that my prescription medication will do more harm than good to me : 0 - Disagree Completely I feel financially burdened by my rka-lo-pilzqe expenses for my prescription medication:: 0 - Disagree Completely Risk Score: 0 Patient is categorized as: Low risk < 2 Are you interested in bedside delivery of your medications? Yes Is Patient Psychosocially Complex?: No ASSESSMENT AND PLAN: Medical Needs: Medical Needs: None Psychosocial Needs: Psychosocial Needs: None FREEDOM OF CHOICE EXPLAINED: [place] of Choice Given: No Reason Not Given: No placements necessary POTENTIAL TRANSITION PLANS Outpatient Therapy Pt from home with spouse. Plan is Outpatient PT at [place]. Patient does not have an appointment. Call placed to [place] to schedule appointment. Waiting for return call. SIGNATURE: Ashley Sands RN PATIENT NAME: Alisia Correa DATE: May 04, 2020 TIME: 10:14 AM PAGER/CONTACT #: [phone] Normal [facility] CBCon 05-04-2020 Absolute nRBC <0.01 Normal <0.01 [facility] al Erythrocyte distribution width (RBC) [Ratio] 14.1 % Normal 11.5-15.0 [facility] Hematocrit (Bld) [Volume fraction] 39.3 % Normal 39.0-51.0 [facility] Hemoglobin (Bld) [Mass/Vol] 12.6 g/dL Low 13.0-17.0 [facility] MCH (RBC) [Entitic mass] 30.1 pG Normal 26.0-34.0 [facility] MCHC (RBC) [Mass/Vol] 32.1 g/dL Normal 30.5-36.0 [facility] MCV (RBC) [Entitic vol] 94.0 fL Normal 80.0-100.0 [facility] Platelet mean volume (Bld) [Entitic vol] 12.8 fL High 9.0-12.7 [facility] l Platelets (Bld) [#/Vol] 134 10*3/uL Low 150-400 [facility] RBC (Bld) [#/Vol] 4.18 10*6/uL Low 4.20-6.00 [facility] WBC (Bld) [#/Vol] 7.60 10*3/uL Normal 3.70-11.00 [facility] NURSING PROGon 05-04-2020 NURSING PROG HNO ID: [id number] Author: eRnae (Rn) FOSTER Greco Service: ? Author Type: Registered Nurse [...] note was completed by: Renae Greco RN [facility] PLAN OF CAREon 05-04-2020 PLAN OF CARE HNO ID: [id number] Author: Rita Arias (Director Of Health Education) Service: ? Author Type: ? Type: Plan [...] ointment Commonly known as: BACTROBAN Rita Arias ([employer] Operating Technology) PAGER: yvan May 04, 2020 4:29 PM [facility] PROGRESSon 05-04-2020 PROGRESS HNO ID: [id number] Author: Steven Guevara Jr. Service: Orthopaedic Surgery [...] Complication, Without Long-Term Current Use of Insulin ([facility]) Chronic Pain Syndrome Copd With Chronic Bronchitis ([facility]) Arthritis of Knee Primary Osteoarthritis of Right Knee Oa (Osteoarthritis) of Knee Glenohumeral Arthritis, Left Essential Tremor Asthma Diabetes Mellitus ([facility]) Essential Hypertension Hyperlipidemia Shoulder Arthritis Status Post Replacement of Left Shoulder Joint Crps (Complex Regional Pain Syndrome Type I) Nicotine use disorder, F17.2 Obesity, Class I, Bmi 30-34.9 Multilevel Spine Pain Iron Deficiency Anemia Secondary to Inadequate Dietary Iron Intake Complete Tear of Right Rotator Cuff Spinal Cord Stimulator Status Mgus (Monoclonal Gammopathy of Unknown Significance) Pd (Parkinson's Disease) ([facility]) Dysphagia Psychosis Due to Parkinson's Disease ([facility]) Osteoarthritis of Left Hip Open Wound of [...] 1751 -- 05/03/20 1800 pneumatic compression stockings (oh,me) 05/03/20 1800 graduated compression stockings (oh,me) 05/03/20 1800 activity - mobilize patient (oh,me) 05/03/20 1800 activity - mobilize patient (oh,me) 05/03/20 1800 activity - mobilize patient (oh,me) VTE Prophylaxis: VTE prophylaxis appropriate POST OPERATIVE COMPLICATIONS: Complicated by: uneventful/none SIGNATURE: Steven Guevara Jr, MD PATIENT NAME: Alisia Correa DATE: May 04, 2020 TIME: 7:54 AM PAGER/CONTACT #: [phone] [facility] THERAPY NTon 05-04-2020 THERAPY NT HNO ID: [id number] Author: Nusrat JerryOt/L) El Service: Occupational Therapy Author Type: Occupational Therapist Type: Therapy (PT/OT/Speech/Resp) Filed: 05/04/2020 1:20 PM Note Text: Occupational Therapy SERVICE DATE: 05/04/2020 SERVICE TIME: 1145 to 1251 ROOM: [place] [address] Recommended Discharge Disposition: Home Anticipated Discharge Needs: [...] of daily living (ADL) Interventions Provided: Evaluation;Self Longterm Management (33537) $ Evaluation-Low (54666) Billed Units: 1 unit Self Longterm Management (19469) Treatment Minutes: 51 3 units Skilled Intervention(s): [...] car transfer with instructions given to have certified driver examiner (as Patient is not allowed to drive) [...] Environment Patient Lives With: Spouse Assistance Available: multimedia project manager(spouse works time buyer but workplace is nearby and flexib ) Entry To Home: With Rail;Stairs Number Of Stairs Into Home: 2 Number Of Stairs To Bed/Bath: 1st floor bed and bath Tub/Shower Type: WIS with shower chair, grab bars, HHS Laundry: 1ST FLOOR Equipment Owned: Cane;Hand Held Shower;Grab Bars-Shower;Standard Walker;Commode-Raised;Tammy wer Chair;Lift Chair;ADL Kit;Area Captain;Wheeled Walker Prior Functional Level: Within Functional Limits Prior 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 Level 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] Diagnosis: Reduced mobility-other Interventions Provided: Evaluation;Therapeutic Exercise (39461);Therapeutic Activity (19215);Gait Training (54453) $ Evaluation-Moderate (85509) Billed Units: 1 unit Therapeutic Exercise (71029) Treatment Minutes: 6 Skilled Intervention(s): Instruction in therapeutic exercise per THR protocol: AP, QS, GS, HS, abd, LAQ Verbal and tactile cuing provided for each. Written handouts provided and reviewed with patient today Therapeutic Activity (59152) Treatment Minutes: 10 1 unit Skilled Intervention(s): [...] 2/3 precautions without cues today Gait Training (61481) Treatment Minutes: 11 1 unit Skilled Intervention(s): [...] Environment Patient Lives With: Spouse Assistance Available: multimedia project manager(spouse works time buyer but workplace is nearby and flexib ) Entry To Home: With Rail;Stairs Number Of Stairs Into Home: 2 Number Of Stairs To Bed/Bath: 1st floor bed and bath Tub/Shower Type: WIS with shower chair, grab bars, HHS Laundry: 1ST FLOOR Equipment Owned: Cane;Hand Held Shower;Grab Bars-Shower;Standard Walker;Commode-Raised;Tammy wer Chair;Lift Chair;ADL Kit;Area Captain;Wheeled Walker Prior Functional Level: Within Functional Limits Prior 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 Author Type: Physician Type: Anesthesia Postprocedure Evaluation Filed: 05/03/2020 4:28 PM Note Text: POST ANESTHESIA EVALUATION NOTE : 1960 Procedure Summary Date: 05/03/20 Room / Location: OR01 / OR Anesthesia Start: 1245 Anesthesia Stop: [...] May 03, 2020 TIME: 4:28 PM CSN: [id number] [facility] ANES PRE-OPon 05-03-2020 ANES PRE-OP HNO ID: [id number] Author: Coreen Ryan Service: ? Author Type: [...] May 03, 2020 TIME: 10:37 AM CSN: [id number] Normal [facility] Basic Metabolic Panlon 05-03 Anion gap [Moles/Vol] 8 mmol/L Low 9-18 [facility] Calcium [Mass/Vol] 8.7 mg/dL Normal 8.5-10.2 [facility] Chloride [Moles/Vol] 105 mmol/L Normal 97-105 [facility] CO2 [Moles/Vol] 25 mmol/L Normal 22-30 [facility] Creatinine [Mass/Vol] 1.20 mg/dL Normal 0.73-1.22 [facility] eGFR- Amer. >60 Normal [facility] GFR/1.73 sq M predicted among non-blacks MDRD (S/P/Bld) [Vol rate/Area] mL/min/{1.73_m2} Normal [facility] Comment on above: Result Comment: eGFR (Estimated [...] GFR. Glucose [Mass/Vol] 107 mg/dL High 74-99 [facility] Comment on above: Result Comment: The Canadian Diabetes Association (ADA) provides guidance for cutoff [...] Standards of Medical Care in Diabetes 2016, Canadian Diabetes Association. Diabetes Care. 2016.39(Suppl 1). Potassium [Moles/Vol] 4.3 mmol/L Normal 3.7-5.1 [facility] Sodium [Moles/Vol] 138 mmol/L Normal 136-144 [facility] Urea nitrogen [Mass/Vol] 18 mg/dL Normal 9-24 [facility] CBCon 05-03-2020 Absolute nRBC <0.01 Normal <0.01 [facility] al Erythrocyte distribution width (RBC) [Ratio] 14.1 % Normal 11.5-15.0 [facility] Hematocrit (Bld) [Volume fraction] 43.9 % Normal 39.0-51.0 [facility] Hemoglobin (Bld) [Mass/Vol] 14.3 g/dL Normal 13.0-17.0 [facility] MCH (RBC) [Entitic mass] 30.2 pG Normal 26.0-34.0 [facility] MCHC (RBC) [Mass/Vol] 32.6 g/dL Normal 30.5-36.0 [facility] MCV (RBC) [Entitic vol] 92.8 fL Normal 80.0-100.0 [facility] Platelet mean volume (Bld) [Entitic vol] 11.7 fL Normal 9.0-12.7 [facility] l Platelets (Bld) [#/Vol] 145 10*3/uL Low 150-400 [facility] RBC (Bld) [#/Vol] 4.73 10*6/uL Normal 4.20-6.00 [facility] WBC (Bld) [#/Vol] 9.79 10*3/uL Normal 3.70-11.00 [facility] CONSULTon 05-03-2020 CONSULT HNO ID: [id number] Author: Henry Collins Service: Hospital Medicine Author Type: Physician Type: Consults Filed: 05/03/2020 8:50 PM Note Text: DEPARTMENT OF HOSPITAL MEDICINE INITIAL CONSULT SERVICE DATE: 05/03/2020 SERVICE TIME: 7:44 PM Primary Care Physician: Ellen Crabtree, DO NIGHT AND WEEKEND COVERAGE: KARELY COVERAGE: Days: [phone], please contact day attending provider ( please page admission pager [phone] to find out day attending provider for [...] Laterality Date - COLONOSCOP W/ OR W/O [facility] SPEC Colonoscopy - EGD W/O OR W/BRUSH/WASH [...] 03, 2020 TIME: 7:44 PM PAGER/CONTACT #: [facility] NURSING PROGon 05-03-2020 NURSING PROG HNO ID: [id number] Author: Renae (Rn) FOSTER Greco Service: ? Author Type: Registered Nurse Type: Nursing Progress Note Filed: 05/03/2020 7:58 PM Note Text: Nursing Progress Note Patient Name: Alisia Correa Patient Location: [facility]/ Daily Note: Received pt from PACU in stable condition at 1745. Bilateral ppp, toes warm and mobile, denies numbness or tingling, Abductor pillow in place. Vitals stable. Will monitor. This note was completed by: Renae Greco RN [facility] OPERATIVE NOon 05-03-2020 OPERATIVE NO HNO ID: [id number] Author: Steven Guevara Jr. Service: Orthopaedic Surgery Author Type: Physician Type: Operative Report Filed: 05/03/2020 3:08 PM Note Text: [facility] OPERATIVE REPORT PATIENT NAME: Alisia Correa AGE: [age] year old LOG ID: [id number] Surgery Date: 05/03/2020 SURGEON: Steven Guevara M.D. TOUR SALES REPRESENTATIVE: Vj Jorge PA-C, his assistance consisted of [...] banked allogenic blood if medically necessary. IMPLANTS: [employer] Total Hip System SIZE TYPE Acetabulum [...] dislocated. Proximal femoral osteotomy was performed. The gambling box person osteotome was utilized to lateralize the starting [...] DATE: May 03, 2020 TIME: 2:57 PM Normal [facility] PROGRESSon 05-03-2020 PROGRESS HNO ID: [id number] Author: Tracey Reyes) Stamper Service: Radiology Author Type: Supervisor Special Effects Type: Progress Notes Filed: 05/03/2020 4:01 PM [...] RT Kathy May 03, 2020 4:01 PM [facility] PROGRESS HNO ID: [id number] Author: Steven Guevara Jr. Service: Orthopaedic Surgery Author Type: Physician Type: Progress Notes Filed: 05/03/2020 8:02 AM Note Text: The patient was offered a surgery/procedure at a [facility] facility. The surgeon/proceduralist and patient [...] surgery/procedure as indicated on the consent form. [facility] PT EDon 05-03-2020 PT ED HNO ID: [id number] Author: Kaylee (Rn) FOSTER Sunshine Service: ? Author Type: Registered Nurse Type: Patient Education Filed: 05/03/2020 11:02 AM Note Text: PRE OP LEARNING ASSESSMENT PROCEDURE/SURGERY: SURGERY READINESS TO LEARN COGNITIVE ABILITY: Alert and oriented MOTIVATION TO LEARN: Interested FAMILY SUPPORT: Unable to assess - Family not present PATIENT LEARNS BEST BY: Individual Instruction Verbal Instruction FACTORS AFFECTING LEARNING: None PHYSICAL LIMITATIONS AFFECTING LEARNING: None [facility] SURGICAL PATHOLOGYon 020 SURGICAL PATHOLOGY Specimen originated from [facility] Specimen #: [id number] Submitting Physician: STEVEN GUEVARA JR, MD FINAL [...] reamings. The additional tissue appears grossly unremarkable. Air Conditioning Mechanic sections are submitted in formalin as follows: A1 soft tissue, A2 bone after a period of decalcification. ARH/adb 05/04/2020 Gross examination performed at [facility], [address] [place] [address] Date of Report: 05/09/2020 Date of Procedure: 05/03/2020 Date of Receipt: 05/03/2020 Submitted by: STEVEN GUEVARA JR, MD Location: [facility] Diagnostic interpretation performed at [facility], [address] [place] [address]. CLIA Number: [id number] Normal [facility] Reference Lab Comment on above: [...] IMPRESSION: Status post hip arthroplasty, normal alignment Ram Car Operator: ARPIT Transcribe Date/Time: May 03 2020 4:05P Dictated by : JUAN LUIS RUSSELL MD This examination was interpreted and the report reviewed and electronically signed by: JUAN LUIS RUSSELL MD on May 03 2020 4:07PM EST [id number] [facility] 05-02-2020 CNPN Telephone (AVPRAD) ----- ALISIA CORREA ([id number]) 1960 M Date Time Provider Department 05/02/20 [...] Hives Date Reviewed: 04/24/2020 Reviewed by: Britney (Welding Machine Operator/Tender) Trent - Fully Assessed Reason for Visit: [...] More... Hyperlipidemia [E78.5] 12/07/2017 More... Ulcerative lesion [QTS8220] 12/07/2017 07/21/2019 Shoulder arthritis [M19.019] 12/29/2017 Status [...] Encounter Status:Closed by VJ JORGE on 05/02/20 [facility] NURSING PROGon 04-25-2020 NURSING PROG HNO ID: [id number] Author: Niyah Hinkle (Rn) FOSTER Golden Service: Anesthesiology Author Type: Registered Nurse [...] Golden RN April 30, 2020 2:36 PM [facility] Type and SCR (30D)on 020 ABO/RH(D) Negative [facility] HOSPon 04-12-2020 HOSP Patient:Eddi Correa MRN: Height:5' [...] disc without myelopathy [M51.24] SPRAIN OF NECK (01/15/) [S13.9XXA] Displacement of cervical intervertebral disc without [...] unknown significance) [D47.2] PD (Parkinson's disease) ([facility]) [G20] Dysphagia [R13.10] Psychosis due to Parkinson's disease ([facility]) [G20] Osteoarthritis of left hip [M16.12] Open [...] is scheduled for post-op Physical Therapy at [facility] ([phone])on 05/07/20 @ 2:45. They want patient to arrive 10 to 15 min early. Fax PT order to [phone]. Normal [facility] Basic Metabolic Panlon 11-09 Anion gap [Moles/Vol] 8 mmol/L Low 9-18 [facility] Calcium [Mass/Vol] 8.6 mg/dL Normal 8.5-10.2 [facility] Chloride [Moles/Vol] 101 mmol/L Normal 97-105 [facility] CO2 [Moles/Vol] 30 mmol/L Normal 22-30 [facility] Creatinine [Mass/Vol] 1.02 mg/dL Normal 0.73-1.22 [facility] eGFR- Amer. >60 Normal [facility] GFR/1.73 sq M predicted among non-blacks MDRD (S/P/Bld) [Vol rate/Area] mL/min/{1.73_m2} Normal [facility] Comment on above: Result Comment: eGFR (Estimated [...] ospital Comment on above: Result Comment: The Canadian Diabetes Association (ADA) provides guidance for cutoff [...] Standards of Medical Care in Diabetes 2016, Canadian Diabetes Association. Diabetes Care. 2016.39(Suppl 1). Potassium [Moles/Vol] 4.1 mmol/L Normal 3.7-5.1 [facility] Sodium [Moles/Vol] 139 mmol/L Normal 136-144 [facility] Urea nitrogen [Mass/Vol] 18 mg/dL Normal 9-24 [facility] CBCon 11-09-2019 Absolute nRBC <0.01 [facility] E[facility]th[facility] distribution width (RBC) [Ratio] 13.7 % Normal 11.5-15.0 [facility] Hematocrit (Bld) [Volume fraction] 39.6 % Normal 39.0-51.0 [facility] Hemoglobin (Bld) [Mass/Vol] 12.5 g/dL Low 13.0-17.0 [facility] MCH (RBC) [Entitic mass] 30.2 pG Normal 26.0-34.0 [facility] MCHC (RBC) [Mass/Vol] 31.6 g/dL Normal 30.5-36.0 [facility] MCV (RBC) [Entitic vol] 95.7 fL Normal 80.0-100.0 [facility] Platelet mean volume (Bld) [Entitic vol] 11.8 fL Normal 9.0-12.7 [facility] Platelets (Bld) [#/Vol] 129 10*3/uL Low 150-400 [facility] RBC (Bld) [#/Vol] 4.14 10*6/uL Low 4.20-6.00 [facility] WBC (Bld) [#/Vol] 6.62 10*3/uL Normal 3.70-11.00 [facility] CONSULT PROGon 11-09-2019 CONSULT PROG HNO ID: [id number] Author: Lenora Alarcon Service: Hospital Medicine Author [...] Associate Staff, Department of Hospital Medicine Clinical Assistant Unit Foresterlab support service tech Hospital Medicine, [facility] Pager [phone] / [phone] [facility] NURSING PROGon 11-09-2019 NURSING PROG HNO ID: [id number] Author: Renae (Rn) FOSTER Greco Service: ? Author Type: Registered Nurse [...] note was completed by: Renae Greco RN [facility] PLAN OF CAREon 11-09-2019 PLAN OF CARE HNO ID: [id number] Author: Rita Arias (Director Of Health Education) Service: ? Author Type: Supervisor Special Effects Type: Plan of Care Filed: 11/09/2019 10:31 AM Note Text: HOME HEALTH CLINICIAN BEDSIDE DELIVERY SURVEY 1. Patient to use [facility] Bedside Delivery - NO prefer own pharmacy Insurance Information as follows: 2. Insurance card on file - N/A 3. Credit card for payment - N/A [facility] PROGRESSon 11-09-2019 PROGRESS HNO ID: [id number] Author: Demetris Naik Service: ? Author Type: Physician Pct Type: Progress Notes Filed: 11/09/2019 7:49 AM [...] discharge planning-plan for DC home today with [facility] if independent with physical therapy ACTIVE PROBLEM [...] Chronic Pain Syndrome Copd With Chronic Bronchitis ([facility]) Arthritis of Knee Primary Osteoarthritis of Right [...] Gammopathy of Unknown Significance) Pd (Parkinson's Disease) ([facility]) Dysphagia Psychosis Due to Parkinson's Disease ([facility]) Osteoarthritis of Left Hip Open Wound of [...] 0747 -- 11/08/19 1315 pneumatic compression stockings (oh,me) 11/08/19 1315 graduated compression stockings ([place]) 11/08/19 1315 graduated compression stockings (oh,me) 11/08/19 1315 activity - mobilize patient (oh,me) 11/08/19 1315 activity - mobilize patient (oh,me) 11/08/19 1315 activity - mobilize patient (oh,me) VTE Prophylaxis: VTE prophylaxis appropriate POST OPERATIVE COMPLICATIONS: Complicated by: uneventful/none SIGNATURE: Demetris Naik PA-C PATIENT NAME: Alisia Correa DATE: November 09, 2019 TIME: 7:48 AM PAGER/CONTACT #: [phone] [facility] PT EDon 11-09-2019 PT ED HNO ID: [id number] Author: Shelley Givens (Pharmacist) Service: Pharmacy Author [...] These medications were sent to e- [facility]-[place]NAL [place] [id number] [facility] - [phone] [address] [facility] [address] ? aspirin, enteric coated 81 mg EC tablet ? oxyCODONE IR 5 mg immediate release tablet You can get these medications from any pharmacy You don't need a prescription for these medications ? acetaminophen 325 mg tablet Normal [facility] PT ED HNO ID: [id number] Author: Shelley Givens (Pharmacist) Service: Pharmacy Author [...] information and Indicates understanding of topic SHELLEY GIVENS, PHARMACIST [facility] THERAPY [facility] 11-09-2019 THERAPY NT HNO ID: [id number] Author: Oumou Witt (Pt) Fabio Service: Physical Therapy Author Type: Physical Therapist Type: Therapy (PT/OT/Speech/Resp) Filed: 11/09/2019 2:56 PM Note Text: Physical Therapy Treatment SERVICE DATE: 11/09/2019 SERVICE TIME: 1105 to 1150 ROOM: [place] [address] Recommended Discharge Disposition: Outpatient Physical Therapy Anticipated [...] Diagnosis: Reduced mobility-other Interventions Provided: Gait Training (33924);Therapeutic Exercise (32867) Therapeutic Exercise (80320) Treatment Minutes: 15 1 unit Skilled Intervention(s): [...] 3x/day, 2 sets for 10 Gait Training (66129) Treatment Minutes: 30 2 units Skilled Intervention(s): [...] November 09, 2019 TIME: 2:52 PM Normal [facility] THERAPY NT HNO ID: [id number] Author: Katharina Moser Service: Occupational Therapy Author Type: Occupational Therapist Type: Therapy (PT/OT/Speech/Resp) Filed: 11/09/2019 2:29 PM Note Text: Occupational Therapy Evaluation SERVICE DATE: 11/09/2019 SERVICE TIME: 849 to 945 ROOM: [place] [address] Recommended Discharge Disposition: Home Anticipated Discharge Needs: [...] living (ADL);Muscle Weakness (generalized) Interventions Provided: Evaluation;Self Longterm Management (04814) $ Evaluation-Low (97142) Billed Units: 1 unit Self Longterm Management (60493) Treatment Minutes: 38 3 units Skilled Intervention(s): [...] body dressing. Instructions and demonstration with a globe changer, sock aide, dressing stick and long handled [...] DATE: November 09, 2019 TIME: 12:33 PM [facility] ANES Brian 11-08-2019 ANES POST HNO ID: [id number] Author: Ashley Guerrier Service: Anesthesiology Author Type: [...] 08, 2019 TIME: 1:16 PM PAGER/CONTACT #: [facility] ANES PREOPon 11-08-2019 ANES PREOP HNO ID: [id number] Author: Ashley Guerrier Service: Anesthesiology Author Type: [...] Gammopathy of Unknown Significance) Pd (Parkinson's Disease) ([facility]) Dysphagia Psychosis Due to Parkinson's Disease ([facility]) Osteoarthritis of Left Hip PAST MEDICAL HISTORY [...] Laterality Date - COLONOSCOP W/ OR W/O [facility] SPEC Colonoscopy - EGD W/O OR W/BRUSH/WASH [...] lactated ringers infusion 5-30 mL/hr INTRAVENOUS CONTINUOUS Stveen Guevara Jr. 30 mL/hr at 11/08/19 0846 [...] November 08, 2019 TIME: 8:55 AM CSN: [id number] Normal [facility] Basic Metabolic Panlon 11-08 Anion gap [Moles/Vol] 11 mmol/L Normal 9-18 [facility] Calcium [Mass/Vol] 8.9 mg/dL Normal 8.5-10.2 [facility] Chloride [Moles/Vol] 106 mmol/L High 97-105 [facility] CO2 [Moles/Vol] 25 mmol/L Normal 22-30 [facility] Creatinine [Mass/Vol] 0.95 mg/dL Normal 0.73-1.22 [facility] eGFR- Amer. >60 Normal [facility] GFR/1.73 sq M predicted among non-blacks MDRD (S/P/Bld) [Vol rate/Area] mL/min/{1.73_m2} Normal [facility] Comment on above: Result Comment: eGFR (Estimated [...] ospital Comment on above: Result Comment: The Canadian Diabetes Association (ADA) provides guidance for cutoff [...] Standards of Medical Care in Diabetes 2016, Canadian Diabetes Association. Diabetes Care. 2016.39(Suppl 1). Potassium [Moles/Vol] 4.3 mmol/L Normal 3.7-5.1 [facility] Sodium [Moles/Vol] 142 mmol/L Normal 136-144 [facility] Urea nitrogen [Mass/Vol] 23 mg/dL Normal 9-24 [facility] CASE MGT INIT [facility] 2019 CASE MGT INIT [facility] ID: [id number] Author: Ashley (Rn) FOSTER Sands Service: Care Management Author Type: Registered Nurse Type: Care Mgt Initial Assessment Filed: 11/08/2019 3:02 PM Note Text: CARE MANAGEMENT: ASSESSMENT AND DISCHARGE PLAN SERVICE DATE: November 08, 2019 SERVICE TIME: 3:01 PM PRIMARY CARE PHYSICIAN: Ellen Crabtree DO ADMISSION STATUS: Extended Recovery Needs Prior to Discharge: OT/PT Evaluation 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 Last discharge within 30 days: No Advance Directive: Current Advance Directive: Health Care Power of Battery Container Finishing Hand;Living Will In Chart: No Digital Manager Attempted to Assist with AD Completion: Yes [...] Information Primary Emergency Contact: Dipti Correa Address: [address] [place] [address] OF [facility] Mobile Relation: Spouse Contact Resources: Family Social [...] Completely I feel financially burdened by my gbx-cn-ghwnhd expenses for my prescription medication:: 0 - Agree Somewhat Risk Score: 0 Patient is categorized as: Low risk < 2 Are you interested in bedside delivery of your medications? Yes Is Patient Psychosocially Complex?: No ASSESSMENT AND PLAN: Medical Needs: Medical Needs: None Psychosocial Needs: Psychosocial Needs: None FREEDOM OF CHOICE EXPLAINED: [place] of Choice Given: No Reason Not Given: No placements necessary POTENTIAL TRANSITION PLANS Outpatient Therapy Patient has equipment. Patient is scheduled for outpatient therapy on 11/11 at [place]. SIGNATURE: Ashley Sands RN PATIENT NAME: Alisia Corrae DATE: November 08, 2019 TIME: 3:01 PM PAGER/CONTACT #: [phone] Normal [facility] CBCon 11-08-2019 Absolute nRBC <0.01 Normal <0.01 [facility] al Erythrocyte distribution width (RBC) [Ratio] 13.9 % Normal 11.5-15.0 [facility] Hematocrit (Bld) [Volume fraction] 44.3 % Normal 39.0-51.0 [facility] Hemoglobin (Bld) [Mass/Vol] 14.2 g/dL Normal 13.0-17.0 [facility] MCH (RBC) [Entitic mass] 30.4 pG Normal 26.0-34.0 [facility] MCHC (RBC) [Mass/Vol] 32.1 g/dL Normal 30.5-36.0 [facility] MCV (RBC) [Entitic vol] 94.9 fL Normal 80.0-100.0 [facility] Platelet mean volume (Bld) [Entitic vol] 11.7 fL Normal 9.0-12.7 [facility] Platelets (Bld) [#/Vol] 159 10*3/uL Normal 150-400 [facility] RBC (Bld) [#/Vol] 4.67 10*6/uL Normal 4.20-6.00 [facility] WBC (Bld) [#/Vol] 10.50 10*3/uL Normal 3.70-11.00 [facility] CONSULTon 11-08-2019 CONSULT HNO ID: [id number] Author: Bhupendra Chacon Service: Podiatry Author Type: [...] Yes 3. COPD with chronic bronchitis ([facility]) POA: Yes 4. Hyperlipidemia POA: Yes 5. PD (Parkinson's disease) ([facility]) POA: Yes 6. Nicotine use disorder, F17.2 POA: Yes 7. Open wound of left heel POA: Yes Bhupendra Chacon, DPAurea PAST MEDICAL HISTORY Diagnosis Date - Durbin's [...] Laterality Date - COLONOSCOP W/ OR W/O [facility] SPEC Colonoscopy - EGD W/O OR W/BRUSH/WASH [...] SCM 08/06/2010 [facility] Left 2012 with [...] intact Lower extremity tested with 10 gram Distant-Nichole monofilament No evidence of diabetic peripheral sensory [...] to be well informed. Bhupendra Chacon DPM [facility] CONSULT HNO ID: [id number] Author: SHRAVAN Christian Service: Hospital Medicine Author Type: Physician Pct Type: Consults Filed: 11/08/2019 2:36 PM Note Text: DEPARTMENT OF HOSPITAL MEDICINE INITIAL CONSULT SERVICE DATE: 11/08/2019 SERVICE TIME: 1:14 PM Primary Care Physician: Ellen Crabtree, NIGHT AND WEEKEND COVERAGE: Days: [phone], please page me for patient issues. Nights: [phone], please page [facility] Hospitalist Night coverage pager [phone] REASON FOR CONSULT: Medical Management REQUESTING PHYSICIAN: [...] with ambulation. States his son is a take out waiter/waitress but is unaware of his current skin [...] Laterality Date - COLONOSCOP W/ OR W/O [facility] SPEC Colonoscopy - EGD W/O OR W/BRUSH/WASH [...] TAB DA , Disp: , Rfl: , 11/05/2019May Betamethasone Dipropionate (DIPROLENE) 0.05 % ointment, APPLY [...] - Levaquin [Levofloxa* Hives REVIEW OF SYSTEMS: RADIO TOWER TECHNICIAN: history of Parkinson' s Disease RESP: history [...] complication, without long-term current use of insulin ([facility]) POA: Yes Assessment AND Plan: - Hold Metformin while in house - SSI #1 - Accuchecks ac/hs - Carb control - Hypoglycemia protocol COPD with chronic bronchitis ([facility]) POA: Yes Assessment AND Plan: - Chronic, stable - Continue home meds Hyperlipidemia POA: Yes Assessment AND Plan: - Continue home meds PD (Parkinson's disease) ([facility]) POA: Yes Assessment AND Plan: - Chronic, [...] Device and Early Ambulation Disposition: Home with [facility] Plan of care discussed with: Provider, RN, Patient SIGNATURE: SHRAVAN Christian PATIENT NAME: Alisia Correa DATE: November 08, 2019 TIME: 1:15 PM PAGER/CONTACT #: [phone] [facility] NURSING PROGon 11-08-2019 NURSING PROG HNO ID: [id number] Author: Jessica (Rn) FOSTER Joe Service: Nursing Author Type: Registered Nurse Type: Nursing Progress Note Filed: 11/08/2019 7:25 PM Note Text: Nursing Progress Note Patient Name: Alisia Correa Patient Location: [place] [address] Daily Note: 1330 Pt admitted to room [...] note was completed by: Jessica Joe RN [facility] OPERATIVE NOon 11-08-2019 OPERATIVE NO HNO ID: [id number] Author: Steven Guevara Jr. Service: Orthopaedic Surgery Author Type: Physician Type: Operative Report Filed: 11/08/2019 2:08 PM Note Text: [facility] OPERATIVE REPORT PATIENT NAME: Alisia Correa AGE: [age] year old LOG ID: [id number] Surgery Date: 11/08/2019 SURGEON: Steven Guevara M.D. TOUR SALES REPRESENTATIVE: Vj Jorge PA-C, his assistance consisted of [...] banked allogenic blood if medically necessary. IMPLANTS: [employer] Total Hip System SIZE TYPE Acetabulum [...] dislocated. Proximal femoral osteotomy was performed. 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 Author Type: Supervisor Special Effects Type: Progress Notes Filed: 11/08/2019 12:05 PM [...] IV DATA: Not applicable SIGNED BY: Dina Stiles RT November 08, 2019 12:05 PM [facility] PT EDon 11-08-2019 PT ED HNO ID: [id number] Author: Catherine (Rn) FOSTER Basurto Service: Nursing Author Type: Registered Nurse [...] Signed By: Catherine Basurto RN In Department: [facility] SURGERY Normal [facility] SURGICAL PATHOLOGYon 020 SURGICAL PATHOLOGY Specimen originated from [facility] Specimen #: [id number] Submitting Physician: STEVEN GUEVARA JR, MD FINAL [...] Sectioning does not reveal any avascular necrosis. Air Conditioning Mechanic sections are submitted as follows: A1 soft tissue, A2 bone submitted after decalcification. BF/slb 11/08/2019 Gross examination performed at [facility] [place] [address] Date of Report: 11/14/2019 Date of Procedure: 11/08/2019 Date of Receipt: 11/08/2019 Submitted by: STEVEN GUEVARA JR, MD Location: [facility] Diagnostic interpretation performed at [facility], [facility] [address]. CLIA Number: [id number] Normal [facility] Reference Lab Comment on above: Performed By: #### S #### See report for performing lab information. THERAPY NTon 11-08-2019 THERAPY NT HNO ID: [id number] Author: Oumou Witt (Pt) Fabio Service: Physical Therapy Author Type: Physical Therapist Type: Therapy (PT/OT/Speech/Resp) Filed: 11/08/2019 2:54 PM Note Text: Physical Therapy Evaluation SERVICE DATE: 11/08/2019 SERVICE TIME: 1325 to 1415(8 min for pharmacist to review meds) ROOM: [place] [address] Recommended Discharge Disposition: Outpatient Physical Therapy Recommended [...] Diagnosis: Reduced mobility-other Interventions Provided: Evaluation;Therapeutic Exercise (34648);Gait Training (53517);Therapeutic Activity (42797) $ Evaluation-Low (30195) Billed Units: 1 unit Therapeutic Exercise (58673) Treatment Minutes: 12 1 unit Skilled Intervention(s): [...] position: LAQ X10 B LE Therapeutic Activity (77724) Treatment Minutes: 3 Skilled Intervention(s): Instructed patient in supine to sit pushing with upper extremities to sit up Gait Training (70733) Treatment Minutes: 12 1 unit Skilled Intervention(s): [...] DATE: November 08, 2019 TIME: 2:49 PM [facility] XR PELVIS 1V APon 11-08-2019 XR PELVIS [...] IMPRESSION: Left total hip prosthesis in place. Ram Car Operator: PSCB Transcribe Date/Time: Nov 08 2019 12:43P Dictated by : LIGIA EDWARDS MD This examination was interpreted and the report reviewed and electronically signed by: LIGIA EDWARDS MD on Nov 08 2019 12:44PM EST [id number] [facility] NURSING PROGon 10-24-2019 NURSING PROG HNO ID: [id number] Author: Geneva JerryRn) FOSTER Goins Service: Nursing Author Type: Registered Nurse [...] RN October 24, 2019 1:40 PM Normal [facility] Type and SCR (30D)on 019 ABO/RH(D) Negative [facility] CNCOon 01-01-2018 CNCO Letter TextChajoel Correa Jmokwjmc[address] [place], [place] [address]Madelainejoel Correa[address] [address] Mr. Correa:The nurses and staff of the 5th floor Orthopedic nursing unit at [facility], a [facility], hope this letter finds you feelingwell and [...] stay please feel free to contact me, Dinana Villarreal at [phone] .[place], you will receive a survey in [...] your healthcare needs. Sincerely,Dianna Villarreal, MSN, RNNurse Rhzkyut5eg Floor OrthopedicLoma Linda University Children's [phone] [email or web address] Normal [facility] Basic Metabolic Panlon 12-31 Anion gap 9 mmol/L Normal 0-15 [facility] Calcium 8.3 mg/dL Low 8.5-10.5 [facility] Chloride 104 mmol/L Normal 98-110 [facility] CO2 25 mmol/L Normal 23-32 [facility] Creatinine 0.98 mg/dL Normal 0.7-1.4 [facility] Glucose mass conc 125 mg/dL High 65-100 [facility] Potassium molar conc 3.5 mmol/L Normal 3.5-5.0 [facility] Sodium 138 mmol/L Normal 135-146 [facility] Urea nitrogen 15 mg/dL Normal 8-25 [facility] CASE MANAGEMon 12-31-2017 CASE MANAGEM HNO ID: [id number] thor: Peace (Rn) JAMIE Bynumervice: Case ManagementAuthor [...] report completed, dc summaryto be faxed, wendy ReynoldsATURE: Peace Bynum RN PATIENT NAME: Alisia Sullivan: December 31, 2017 : 10:40 AM PAGER/CONTACT #: [phone] [facility] CBCon 12-31-2017 Erythrocyte distribution width Auto Ratio (RBC) 15.3 % High 11.5-15.0 [facility] Erythrocytes (RBC) 3.45 10*6/uL Low 4.20-6.00 [facility] Hematocrit (HCT) 29.7 % Low 39.0-51.0 [facility] Hemoglobin mass conc (Bld) 9.6 g/dL Low 13.0-17.0 [facility] MCH 27.8 pG Normal 26.0-34.0 [facility] MCHC mass conc (RBC) 32.3 g/dL Normal 30.5-36.0 [facility] MCV 86.1 fL Normal 80.0-100.0 [facility] Platelet mean volume (PMV) 13.3 fL High 9.0-12.7 [facility] Platelets 112 10*3/uL Low 150-400 [facility] Comment on above: Result Comment: Murphy hi checked for a clot. WBC (Leukocytes) 6.00 10*3/uL Normal 3.70-11.00 [facility] CNDSon 12-31-2017 CNDS HNO ID: [id number] thor: Candida (Moni) [facility] Centerervice: Orthopaedic SurgeryAuthor Type: ResidentType: Discharge SummariesFiled: 01/01/2018 [...] surgery. [facility] Surgery was scheduledand on [...] in 10-14 days.Future AppointmentsDate Time Provider Department [place]01/06/2018 11:40 AM Cisco Silver Ariella NRESMN NREST S Bldg01/12/2018 10:00 AM Evangelist JerryRn) FOSTER Gilliland ORTHEU [facility]02/08/2018 2:00 PM XR [facility] RGNEU [facility]02/08/2018 2:30 PM Sergey Perez ORTHEU [facility]03/08/2018 9:20 AM Dusty Montgomery NEURAV REJDischarmaria Medications: Discharge Medication List as of 12/31/2017 [...] BM > 48 hrs.Print RX, Disp-120 mL, V-7mqhowuckvh-zbmwtbwout (SYMBICORT) 160-4.5 mcg/actuation inhalerInhale 2 Puffs as instructed twice daily.Med Update, R-0DULoxetine (CYMBALTA) 60 mg capsuleTake 1 capsule by mouth once daily.Med Update, R-0sucralfate (CARAFATE) 1 gram tabletTake 1 tablet by mouth four times daily.Med Update, N-4NHWLWRDH-LWK/FA/LYCOPE N/LUTEIN (CENTRUM SILVER ULTRA MEN'S ORAL)Take 1 tablet by mouth once daily.Historical Medamitriptyline 25 mg ORAL tabletTake 50 mg by mouth daily at bedtime.Historical Med, R-0tamsulosin (FLOMAX) 0.4 mg ORAL Ff89Lsab 2 capsules by mouth daily at bedtime.Mail [...] OtherProviderSIGNATURE: Candida Pat MD PATIENT NAME: Alisia ChinTE: December 31, 2017 : 6:26 AM PAGER: [phone] [facility] NURSING PROGon 12-31-2017 NURSING PROG HNO ID: [id number] thor: Charlotte Crowe (Rn) Hipolito, JAMIEervice: (none)Author Type: Registered NurseType: Nursing Progress NoteFiled: 12/31/2017 2:04 PMNote Text: Nursing Progress NotePatient Name: Alisia CorreaMRN: [id number] [facility]: [facility] IN-506/ [place]-* Dai ly Note:0800 awake, alert for am [...] note was completed by: Charlotte Mcmillan RN [facility] PROGRESSon 12-31-2017 PROGRESS HNO ID: [id number] thor: Macrina ([facility]) DionService: General Internal MedicineAuthor Type: Nurse PractitionerType: Progress NotesFiled: 12/31/2017 5:07 PMNote Text:INPATIENT PROGRESS NOTESName: Alisia CorreaMRN: [id number] of Service: December 31, 2017SUBJECTIVE: Seen and examined at bedside.Patient states pain is level 4-5 now. He denies any dizziness/lightheadedness . He denies nausea orvomiting, chest pain, palpitations or shortness of breath.PERTINENT ROS:All others reviewed and negative except as per HPIMEDICATIONS:No current hospital medications on file.PHYSICAL EXAM: 12/30/1821P: 91/65 119/63 110/62 105/66Pulse: 88 95 75 [...] focal deficits.DATA:CBC, Coags, BMP, Mg, PhosRecent Labs 12/31/18034WBC 6.00 7.10HB 9.6* 9.7*HCT 29.7* 29.6*PLT 112* [...] plan of care with Dr. Blair.Macrina Thomason, [facility] 20175:00 PM [facility] PROGRESS HNO ID: [id number] thor: Candida (Res) MahmoodService: Orthopaedic SurgeryAuthor Type: ResidentType: Progress NotesFiled: 12/31/2017 6:26 AMNote Text:ORTHOPAEDIC SURGERY PROGRESS NOTEPatient: Alisia CorreaMRN: [id number]: Procedure(s) (LRB):ARTHROPLASTY TOTAL SHOULDER; W/ GLENOID AND [...] SIGNS:BMI: Body mass index is 33.49 kg/(m2). 12/30/1817618BP: 91/54 91/65 119/63 110/62Pulse: 80 88 95 [...] labsMost recent imagingCandida Pat MD12/30/2017Orthopaedic Surgery PGY-2Pager: [phone] [facility] THERAPY NTon 12-31-2017 THERAPY NT HNO ID: [id number] thor: Cyn (Ot) PacoerService: Occupational TherapyAuthor Type: Occupational TherapistType: Therapy (PT/OT/Speech/Resp)Filed: 01/04/2018 4:15 PMNote Text:Occupational Therapy TreatmentSERVICE DATE: 12/31/2017SERVICE TIME: 1300 to 1338ROOM: [facility] [id number] Discharge Disposition: HomeAnticipated Discharge Needs: Physical Assist [...] mobility-other;Decreased activities of dailyliving (ADL)Interventions Provided: Self Longterm Management (64455);TherapeuticExerci se (88633)Therapeutic Exercise (45881) Treatment Minutes: 101 unitSkilled Intervention(s): Instruction in therapeutic exerciseFacilitation of muscle control, optimal recruitment and alignmentEducation in PROM in supine to L shoulder to 90 degrees. present and follow instruction, with proper techniqueSelf Longterm Management (87102) Treatment Minutes: 282 unitsSkilled Intervention(s): Instructed in [...] ATURE: Cyn Willson OTR/L PATIENT NAME: [facility]DATE: December 31, 2017 : 2:25 PM PAGER: [phone] [facility] CASE MANAGEMon 12-30-2017 CASE MANAGEM HNO ID: [id number] thor: Peace (Rn) JAMIE Bynumervice: Case ManagementAuthor [...] this admission? NoHANDOFF COMMUNICATION:Call to PCP office wAlejandro mendosa at dcTRANSPORTATION ARRANGEMENTS:Car familyADDITIONAL CONTACT RESOURCES: .Needs Prior to Discharge: Ready for DischargeIM letter given to patient on 12/30/17.Patient to dc home w. HEP. Dc instructions per nursing staff. No furtherneeds at this time. 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 Lives at home w.Spouse who is able to assist as needed. No falls or safety concerns athome. No snf or hhc in the past. PCP is Dr Crabtree whom patient follows [facility] [place]. Therapy recommends home w./ HEP. Anticipate dc home post opday 1 pending medical and therapy clearance. Cm to cont to followSIGNATURE: Peace Bynum RN PATIENT NAME: Alisia CorreaDATE: December 30, 2017 : 11:00 AM PAGER/CONTACT #: [phone] [facility] CBCon 12-30-2017 Erythrocyte distribution width Auto Ratio (RBC) 15.2 % High 11.5-15.0 [facility] Erythrocytes (RBC) 3.44 10*6/uL Low 4.20-6.00 [facility] Hematocrit (HCT) 29.6 % Low 39.0-51.0 [facility] Hemoglobin mass conc (Bld) 9.7 g/dL Low 13.0-17.0 [facility] MCH 28.2 pG Normal 26.0-34.0 [facility] MCHC mass conc (RBC) 32.8 g/dL Normal 30.5-36.0 [facility] MCV 86.0 fL Normal 80.0-100.0 [facility] Platelet mean volume (PMV) 12.6 fL Normal 9.0-12.7 [facility] Platelets 128 10*3/uL Low 150-400 [facility] Comment on above: Result [facility]. WBC (Leukocytes) 7.10 10*3/uL Normal 3.70-11.00 [facility] CONSULTon 12-30-2017 CONSULT HNO ID: [id number] thor: Reagan Floreservice: General Internal MedicineAuthor Type: PhysicianType: ConsultsFiled: 12/30/2017 9:00 PMNote Text:HISTORY AND PHYSICAL EXAMINATIONPATIENT NAME: Alisia CorreaMRN: [id number] DATE: 12/30/2017SERVICE TIME: 1030PRIMARY CARE PHYSICIAN: NANCY [...] HISTORYProcedure Laterality Date- COLONOSCOP W/ OR W/O [facility] SPEC Colonoscopy- EGD W/O OR W/BRUSH/WASH 2016 [...] Disp: 30 tablet Rfl: 2 12/28/2017 at 0acetaminophen (TYLENOL) 325 mg tablet Take 2 tablets [...] meals and at bedtime. Disp: Rfl: 12/28/2017 [id number] (VIAGRA) 100 mg tablet Take 100 mg [...] as needed for Anxiety.Disp: Rfl: 12/28/2017 at 0Aug Betamethasone Dipropionate (DIPROLENE) 0.05 % ointment APPLY [...] mouth once daily.Disp: Rfl: 0 12/28/2017 at 0sucralfate (CARAFATE) 1 gram tablet Take 1 tablet by mouth four timesdaily. Disp: Rfl: 0 more then 1 weekMULTIVIT-MIN/FA/LYCOP EN/LUTEIN (CENTRUM SILVER ULTRA MEN'S ORAL) Take 1tablet by mouth once daily. Disp: Rfl: more then 1 week agoamitriptyline 25 mg ORAL tablet Take 50 mg by mouth daily at bedtime.Disp: Rfl: 0 12/28/2017 at 1929tamsulosin (FLOMAX) 0.4 mg ORAL Cp24 Take 2 capsules by mouth daily atbedtime. Disp: 180 capsule Rfl: 3 12/28/2017 at 1929Albuterol Sulfate 1.25 mg/3 mL INHALATION nebulizer solution VIA NEBULIZER PRN Disp: Rfl: 3 days agoacarbose(PRECOSE 25 MG TAB) Take one(1) tablet three(3) times daily. Disp:1 month supply Rfl: 3 12/28/2017 at 0potassium citrate (UROCIT-K 10) 10 mEq ORAL TbSR Take one(1) tablet threetimes daily. Disp: Rfl: 0 12/28/2017 at 0urea (CARMOL) 40 % lotn Apply to affected [...] reviewed and negative other than HPI.PHYSICAL EXAM: 300 541 025BP: 99/58 95/56 106/61Pulse: 77 71 74Resp: [...] focal deficits.DATA:CBC, Coags, BMP, Mg, PhosRecent Labs 265376EKY 7.10HB 9.7*HCT 29.6*PLT 128*ASSESSMENT AND PLAN:Postoperative anemia [...] participate in the care of your patient.Macrina Thomason [facility] 201711:58 AMmeds reordered. Check bs. Pain is okI have seen the patient and verified the exam. I have personally reviewedall labs and imaging results. I have discussed with the HEALTH TECHNICIAN and I haveparticipated in sifuentes components.I agree with the note as documented with additional comments if needed.The assessment and plan as outlined are reflection of our discussion.Reagan Blair MD [facility] NURSING PROGon 12-30-2017 NURSING PROG HNO ID: [id number] thor: Sotero (Rn) Debbie Chavarriaice: (none)Author Type: Registered NurseType: Nursing Progress NoteFiled: 12/30/2017 10:14 PMNote Text: Nursing Progress NotePatient Name: Alisia CorreaMRN: [id number] Location: [facility] IN/ IN-* Dai ly Note: Patient is resting in [...] note was completed by: SOTERO CHAVARRIA RN [facility] NURSING PROG HNO ID: [id number] thor: Cece JerryRn) Debbie Veraice: (none)Author Type: Registered NurseType: Nursing Progress NoteFiled: 12/30/2017 4:53 PMNote Text: Nursing Progress NotePatient Name: Alisia CorreaMRN: [id number] Location: [facility] IN/ IN-* Dai ly Note: pt c/o pain to left underarm, med with percocet 2 tabs po, rtshoulder dsg intact with fresh ice pack applied, on q ball intact/ patent,lef shoulder immobilizer on, jacqueline sequentials on bilat, vs stable, ptstates cannot go home today. Pt states that his works to 6 pm and helive 2 hours away from [id number] pt resting in bed with no change in status, no needs at this timeThis note was completed by: Cece Vera RN [facility] PROGRESSon 12-30-2017 PROGRESS HNO ID: [id number] thor: Candida (Res) MahmoodService: Orthopaedic SurgeryAuthor Type: ResidentType: Progress NotesFiled: 12/30/2017 6:27 AMNote Text:ORTHOPAEDIC SURGERY PROGRESS NOTEDATE: 12/30/2017TIME: 5:54 AMPatient: Alisia CorreaMRN: [id number]: Procedure(s) (LRB):ARTHROPLASTY TOTAL SHOULDER; W/ GLENOID AND [...] Insulin (Hcc)Chronic Pain SyndromeCopd With Chronic Bronchitis ([facility])Arthritis of KneePrimary Osteoarthritis of Right KneeOa (Osteoarthritis) of KneeGlenohumeral Arthritis, LeftEssential TremorAsthmaDiabetes Mellitus (Hcc)Essential HypertensionHyperlipidemi aUlcerative LesionShoulder ArthritisSUBJECTIVE:No acute issue overnight, Comfortable, pain is better controlled,afebrile, No CP/SOBOBJECTIVE:VITAL SIGNS:BMI: Body mass index is 33.49 kg/(m2). 156 12/30/18011BP: 101/68 99/58 95/56Pulse: 74 77 71Resp: 18 [...] reviewed for today's visit:Most recent labsMost recent imagingBillynne Pat MD12/30/2017Orthopaedic Surgery PGY-2Pager: [phone] [facility] THERAPY NTon 12-30-2017 THERAPY NT HNO ID: [id number] thor: Cyn (Ot) Marcuservice: Occupational TherapyAuthor Type: Occupational TherapistType: Therapy (PT/OT/Speech/Resp)Filed: 12/30/2017 4:30 PMNote Text:Occupational Therapy TreatmentSERVICE DATE: 12/30/2017SERVICE TIME: 1600 to 1610ROOM: [id number] Discharge Disposition: HomeAnticipated Discharge Needs: Physical Assist [...] activities of dailyliving (ADL)Interventions Provided: Therapeutic Exercise (45637)Therapeutic Exercise (72856) Treatment Minutes: 101 unitSkilled Intervention(s): Facilitation of [...] evaluation/treatment.SIGN ATURE: INDU Ray/Kenny PATIENT NAME: Alisia CorreaDATE: December 30, 2017 : 4:29 PM PAGER: [phone] [facility] THERAPY NT HNO ID: [id number] thor: Cyn Velazquezervice: Occupational TherapyAuthor Type: Occupational TherapistType: Therapy (PT/OT/Speech/Resp)Filed: 12/30/2017 2:42 PMNote Text:Occupational Therapy EvaluationSERVICE DATE: 12/30/2017SERVICE TIME: 1055 to 1125ROOM: [facility] [id number] Discharge Disposition: HomeAnticipated Discharge Needs: Physical Assist [...] activities of dailyliving (ADL)Interventions Provided: Evaluation;Therapeutic Exercise (73670);Self CareHome Management (77534)$ Evaluation-Moderate (22695) Billed Units: 1 unitTherapeutic Exercise (30930) Treatment Minutes: 101 unitSkilled Intervention(s): Instruction in therapeutic exercise PROM Lshoulder to 90 degrees in supineEducation in AROM distal to shoulder after brace comes off at home mid elf Longterm Management (28182) Treatment Minutes: 131 unitSkilled Intervention(s): Instructed in [...] G CODE:OT 6 Clicks Score: 16 (12/30/17 105)Self Care Current Status (G8987): CK (12/30/17 105)Self Care Goal Status (G8988): CK (12/30/17 105)Based on clinical assessment and the score on the 6 Clicks FunctionalAssessment Tool, the G code and corresponding severity modifiers aredocumented above.SUBJECTIVE:Current Hospital Course: Chart reviewed; Pt 57 yo M admitted on 12/29/17or [facility] by Dr Kelseynt Report: I want to raise my shoulder.Home [...] ATURE: INDU Ray/Kenny PATIENT NAME: [facility]isia [facility] ResourcesDATE: December 30, 2017 : 2:34 PM PAGER: [phone] [facility] THERAPY NT HNO ID: [id number] thor: Pj (Pt) SulenService: Physical TherapyAuthor Type: Physical TherapistType: Therapy (PT/OT/Speech/Resp)Filed: 12/30/2017 1:25 PMNote Text:Physical Therapy EvaluationSERVICE DATE: 12/30/2017SERVICE TIME: 1140 to 1205ROOM: [facility] [id number] Discharge Disposition: Outpatient Physical Therapy (whenappropriate)Anticipa jacqueline [...] Diagnosis: Reduced mobility-otherInterventio ns Provided: Evaluation;Gait Training (53404)$ Evaluation-Low (59069) Billed Units: 1 unitGait Training (32830) Treatment Minutes: 232 unitsSkilled Intervention(s): Pt ambulated [...] ATURE: Pj Rueda PT PATIENT NAME: Alisia CorreaDATE: December 30, 2017 : 1:10 PM PAGER/CONTACT #: [phone] [facility] ANES Brian 12-29-2017 ANES POST HNO ID: [id number] thor: Ilsa NgService: AnesthesiologyAuthor Type: AnesthesiologistType: Anesthesia PostOpFiled: 12/29/2017 6:14 PMNote Text:POST ANESTHESIA EVALUATION NOTESERVICE DATE: 12/29/2017SERVICE TIME: 6:14 PMDOB: 1960Vitals: 12/29/1816Temp: 36.1 ?C (97 ?F) 36 ?C (96.8 ?F) 12/29/1816BP: 109/68 104/58 114/57 115/64 12/29/1816Pulse: (!) 59 (!) 58 61 60 [...] 29, 2017 : 6:14 PM PAGER/CONTACT #: [facility] ANES PREOPon 12-29-2017 ANES PREOP HNO ID: [id number] thor: Ilsa NgService: AnesthesiologyAuthor Type: AnesthesiologistType: Anesthesia PreOpFiled: 12/29/2017 6:14 PMNote Text:REGIONAL ANESTHESIOLOGY DAY OF SURGERY NOTEPATIENT NAME: Alisia CorreaMRN: [id number] :ALLERGIESAllergen Reactions- Avelox [Moxifloxaci* Rash, Hives, Itching, Shortness of Breath- Celebrex [Celecoxib] Rash, Hives, GI Upset- Erythromycin Base Hives, Shortness of Breath- Klonopin [Clonazepa* Itching- Levaquin [Levofloxa* HivesProcedure(s) (LRB):ARTHROPLASTY TOTAL SHOULDER; W/ GLENOID AND PROXIMAL HUMERAL REPLACEMENT(Left)Surgeon( s):Sergey MonroeiVitals: BP: 116/61Pulse: 60Resp: 18Temp: 36.1 ?C [...] Insulin (Hcc)Chronic Pain SyndromeCopd With Chronic Bronchitis ([facility])Arthritis of KneePrimary Osteoarthritis of Right KneeOa (Osteoarthritis) [...] HISTORYProcedure Laterality Date- COLONOSCOP W/ OR W/O [facility] SPEC Colonoscopy- EGD W/O OR W/BRUSH/WASH 2016 [...] mg by mouth daily at bedtime.12/28/2017 at 1930 Yestamsulosin (FLOMAX) 0.4 mg ORAL Cp24 Take [...] mg injection (XYLOCAINE) 0.1-0.2 mLINTRADERMAL PRN Laura Pablo) Meyerlactated ringers infusion 5-30 mL/hr INTRAVENOUS CONTINUOUS Laura Pablo)MeyerceFAZolin iv piggyback 2 g in D5W (iso-osmotic) [...] obtained within 48 hours ofSurgery/Procedure.IMANI COELHO: Ady Umanzor, MDDATE: December 29, 2017TIME: 12:45 PM [facility] BRIEF OP NOTon 12-29-2017 BRIEF OP NOT HNO ID: [id number] thor: Candida (Res) MahmoodService: Orthopaedic SurgeryAuthor Type: ResidentType: Brief Op NoteFiled: 12/29/2017 5:35 PMNote Text:SHOULDERBRIEF OPERATIVE / PROCEDURE NOTELOG ID: [id number]/Procedure Date: 12/29/2017Incision/Procedu re Start Time: 3:04 PMIncision Close/Procedure End Time: 5:22 PMSurgeon(s)/Proceduralis t(s) and Pct(s):Surgeon(s) and Role: * Sergey Perez - Primary * Watson (Micheal Garcia - Fellow * Candida Pat - Resident - AssistingPhysician Pct: Chato Arrieta (Pa) IIProcedure(s):Procedure( s) (LRB):ARTHROPLASTY TOTAL [...] clinic, with Kenny Pat MD12/29/2017Orthopaedic Surgery PGY-2Pager: [phone]: Candida Pat MD PATIENT NAME: Alisia CorreaDATE: December 29, 2017 : 5:33 PM PAGER/CONTACT #: [phone] [facility] NURSING PROGon 12-29-2017 NURSING PROG HNO ID: [id number] thor: Ny JerryRnJAMIE Marshallervice: NursingAuthor Type: Registered NurseType: Nursing Progress NoteFiled: 12/30/2017 6:13 AMNote Text: Nursing Progress NotePatient Name: Alisia CorreaMRN: [id number] Location: [place]-506/ [place]-* Dai ly Note: Assumed care, pt sitting [...] note was completed by: NY HERNANDEZ RN [facility] NURSING PROG HNO ID: [id number] thor: Cece (Foster) Jody, RNService: (none)Author Type: Registered NurseType: Nursing Progress NoteFiled: 12/30/2017 10:50 AMNote Text: Nursing Progress NotePatient Name: Alisia CorreaMRN: [id number] Location: [place] [address]-* Dai ly Note: pt arrived from PACU via bed, A+OX3, oriented pt to room andcall light, left shoulder dsg with immobilizer and ice pack dry andintact, pillow placed behind left elbow, on q ball intact/ clamped, ptdenies pain at this time, vs stable, [place] at bedside ordering dietfor [id number] Reviewed daily medication list with pt, compared med list with MARand ordered appropriate medications that were missing from pt's MARThis note was completed by: Cece Vera RN [facility] OPERATIVE NOon 12-29-2017 OPERATIVE NO HNO ID: [id number] thor: Sergey Mcwilliamsvice: Orthopaedic SurgeryAuthor Type: PhysicianType: Operative ReportFiled: 12/29/2017 5:49 PMNote Text:[facility] [place] [id number] [place]OPERATIVE REPORTNAME: Alisia Cox paras [facility] #: [id number]: 12/29/2017 (3:04pm-5:22pm) AGE: 57SURGEON 1: Sergey Perez M.D.TOUR SALES REPRESENTATIVE: 1. Candida Pat M.D. 2. Watson Garcia [...] 48 mm, +7 mm STEPTECH anchor pegglenoid ([employer] STEPTECH APG) was then impacted into [...] humeral implant was, therefore, a 12 stem, hnbctree897-eihcze neck, with a 52 x 18 mm [...] single rotator interval stitch wasthen passed in odieqw-ov-yupsy fashion with a #2 Ticron suture and tieddown to close the lateral rotator interval and set the osteotomy piecesuperiorly. The two #2 Fiberwire sutures coming out of the bicipitalgroove were then sequentially passed in a fxfarf-qz-wgoua fashion medialto the horizontal mattress and sequential [...] the wound was sterilely dressed with Adaptic, 0t4ujvpl, ABD dressing, and Foam tape. The shoulder [...] noneSPECIMENS: noneCOMPLICATIONS: none apparentEric Wicho Perez M.D. [facility] PT EDon 12-29-2017 PT ED HNO ID: [id number] thor: Crystal (Rn) Mario, JAMIEervice: NursingAuthor Type: Registered NurseType: Patient EducationFiled: 12/29/2017 12:00 PMNote Text:PRE OP LEARNING ASSESSMENTPROCEDURE/SURGE RY: SURGERY:READINESS TO LEARNCOGNITIVE ABILITY: Alert and orientedMOTIVATION TO LEARN: EagerInterestedFAMILY SUPPORT: High - Very involved in pt carePATIENT LEARNS BEST BY: Multiple MethodsFACTORS AFFECTING LEARNING: NonePHYSICAL LIMITATIONS AFFECTING LEARNING: NoneElectronically Signed By: Crystal Martin RN In Department: [place] [facility] / TO COME IN [facility] XR SHOULDER SPECIFY 1V LTon 12-29-2017 [...] LOYD MD on Dec 29 2017 5:49PM [id number] Normal [facility] NURSING PROGon 12-08-2017 NURSING PROG HNO ID: [id number] thor: Amaya (Rn) Paula, RNService: (none)Author Type: [...] HPI: DM-oral medication; Current smoker; S/P gastric [id number] Considerations:N/AChart Check:TESSA Espinosamountain view regional medical centerfrancine 2017 9:11 AM Normal [facility] Type and SCR (30D)on 018 ABO/RH(D) Negative Normal [facility] Antibody Screen Negative Normal [facility] HOSPon 11-13-2017 HOSP Patient:Eddi Correa LMRN: Height:5' [...] mg ORAL tablettamsulosin (FLOMAX) 0.4 mg ORAL [id number] Sulfate 1.25 mg/3 mL INHALATION nebulizer solutionacarbose(PRECOSE [...] mellitus (HCC) [E11.9]Essential hypertension [I10]Hyperlipidemia [E78.5]Ulcerative lesion [EKF1294]Allergies:Avelox [Moxifloxacin Hcl]Celebrex [Celecoxib]Erythromycin BaseKlonopin [Clonazepam]Levaquin [Levofloxacin]Date Verified: 12/29/17Lab ValuesLab Value Units Date High LowPOTA* 4.6 mmol/L 12/07/2017 5.1 3.7HEMA* 43.5 % 12/07/2017 51.0 39.0No progress notes entered within the past [address] [facility] Basic Metabolic Panlon 07-02 Anion gap 11 mmol/L Normal 10-[address] [facility] Comment on above: Performed By: #### C MP, IRON, CBCDIF ####[place] [phone]#### FERR, HBA1C ####[place] [phone] Calcium 8.0 mg/dL Low 8.5-10.[address] [facility] Comment on above: Performed By: #### C MP, IRON, CBCDIF ####[place] [phone]#### FERR, HBA1C ####[place] [phone] Chloride 105 mmol/L Normal 98-[address] [facility] Comment on above: Performed By: #### C MP, IRON, CBCDIF ####[place] [phone]#### FERR, HBA1C ####[place] [phone] CO2 23 mmol/L Normal 23-[address] [facility] Comment on above: Performed By: #### C MP, IRON, CBCDIF ####[place] [phone]#### FERR, HBA1C ####[place] [address] Creatinine 1.00 mg/dL Normal 0.70-1.[address] [facility] Comment on above: Performed By: #### C MP, IRON, CBCDIF ####[place] [phone]#### FERR, HBA1C ####[place] [address] [place] [phone] eGFR (non-black) mL/min/{1.73_m2} Normal >60 [facility] Comment on above: Performed By: #### C MP, IRON, CBCDIF ####[place] [phone]#### FERR, HBA1C ####[address] [place] [phone] Glucose mass conc 112 mg/dL High 65-100 [facility] Comment on above: Performed By: #### C MP, IRON, CBCDIF ####[place] [phone]#### FERR, HBA1C ####[place] [phone] Potassium molar conc 3.7 mmol/L Normal 3.5-5.0 [facility] Comment on above: Performed By: #### C MP, IRON, CBCDIF ####[place] [phone]#### FERR, HBA1C ####[place] [phone] Sodium 139 mmol/L Normal 135-[address] [facility] Comment on above: Performed By: #### C MP, IRON, CBCDIF ####[place] [phone]#### FERR, HBA1C ####[place] [phone] Urea nitrogen 17 mg/dL Normal 10-[address] [facility] Comment on above: Performed By: #### C MP, IRON, CBCDIF ####[place] [phone]#### FERR, HBA1C ####[place] [phone] CASE MANAGEMon 07-02-2017 CASE MANAGEM HNO ID: [id number] thor: Kerri () HouseService: Care ManagementAuthor Type: Social WorkerType: Care Mgt Progress NoteFiled: 07/03/2017 9:32 AMNote Text:CARE MANAGEMENT DISCHARGE NOTESERVICE DATE: 07/03/2017SERVICE TIME: LOS: 1 dayAdmission Date: 07/01/2017DISCHARGE ARRANGEMENT (list agency and phone number)Home and Home careProvider: [facility] care HANDOFF COMMUNICATION:summary of care sent to [facility] via [facility]. Informed [facility] pt d/c yesterday.TRANSPORTATION ARRANGEMENTS:Car via familyADDITIONAL CONTACT RESOURCES:Discharge Information Admission (Discharged) from 07/01/[address] [facility] 5D Medical Follow-Up Appointment Specialty Stan Cali Provider Name Swati Senior MD Address [address] [address] [facility], [place] [address] Appointment Date 07/21/17 Appointment Time 9:00AM Additonal Instructions Patient should bring the following to appointment:Picture ID, Insurance Card, Copay (if applicable), Medications/Med List,and Hospital Discharge paperwork. Please provide a minimum of 24 hournotice for cancellations/reschedulin g.Needs Prior to Discharge: Ready for DischargeSIGNATURE: LIZETT Sweeney PATIENT NAME: Alisia Kenny Sunny Avila.DATE: July 03, 2017 : 9:30 AM PAGER/CONTACT #: Normal [facility] CBCon 07-02-2017 Erythrocyte distribution width Auto Ratio (RBC) 13.6 % Normal 11.5-15.[address] [facility] Comment on above: Performed By: #### C MP, IRON, CBCDIF ####[facility] [phone]#### FERR, HBA1C ####[facility] [address] [place], [place] [phone] Erythrocytes (RBC) 3.73 10*6/uL Low 4.20-6.00 [facility] Comment on above: Performed By: #### C MP, IRON, CBCDIF ####[place] [phone]#### FERR, HBA1C ####[place] [phone] Hematocrit (HCT) 34.4 % Low 39.0-51.[address] [facility] Comment on above: Performed By: #### C MP, IRON, CBCDIF ####[place] [phone]#### FERR, HBA1C ####[place] [phone] Hemoglobin mass conc (Bld) 10.9 g/dL Low 13.0-17.[address] [facility] Comment on above: Performed By: #### C MP, IRON, CBCDIF ####[place] [phone]#### FERR, HBA1C ####[place] [phone] MCH 29.2 pG Normal 26.0-34.[address] [facility] Comment on above: Performed By: #### C MP, IRON, CBCDIF ####[place] [phone]#### FERR, HBA1C ####[place] [address] MCHC mass conc (RBC) 31.7 g/dL Normal 30.5-36.0 [facility] Comment on above: Performed By: #### C MP, IRON, CBCDIF ####[place] [phone]#### FERR, HBA1C ####[place] [phone] MCV 92.2 fL Normal 80.0-100.[address] [facility] Comment on above: Performed By: #### C MP, IRON, CBCDIF ####[place] [phone]#### FERR, HBA1C ####[place] [phone] Platelet mean volume (PMV) 12.5 fL Normal 9.0-12.[address] [facility] Comment on above: Performed By: #### C MP, IRON, CBCDIF ####[place] [phone]#### FERR, HBA1C ####[place] [phone] Platelets 146 10*3/uL Low 150-[address] [facility] Comment on above: Performed By: #### C MP, IRON, CBCDIF ####[place] [phone]#### FERR, HBA1C ####[place] [phone] WBC (Leukocytes) 6.04 10*3/uL Normal 3.70-11.00 [facility] Comment on above: Performed By: #### C MP, IRON, CBCDIF ####[place] [phone]#### FERR, HBA1C ####[place] [phone] CONSULT PROGon 07-02-2017 CONSULT PROG HNO ID: [id number] thor: Sonny Pablo) Luz Elenaervice: Pain ManagementAuthor [...] (How often does the pain occur?) occurs zcohldbjpg83hn WM cc R knee painPERTINENT ROS:denies fever, [...] HISTORYProcedure Laterality Date- COLONOSCOP W/ OR W/O [facility] SPEC Colonoscopy- EGD W/O OR W/BRUSH/WASH 2016 [...] 3.7 Sodium (mmol/L)Date Value07/02/2017 139 Chloride (mmol/L)Date 07/02/2017 105 CO2 (mmol/L)Date 07/02/2017 23 Creatinine (mg/dL)Date 07/02/2017 1.00 BUN (mg/dL)Date 07/02/2017 17 Anion Gap (mmol/L)Date Value07/02/2017 11 Calcium (mg/dL)Date 07/02/2017 8.0 WBC (k/uL)Date Value07/02/2017 6.04RBC (m/uL)Date Value07/02/2017 3.73 (L)Hemoglobin (g/dL)Date 07/02/2017 10.9 (L)Hematocrit (%)Date Value07/02/2017 34.4 (L)MCV (fL)Date Value07/02/2017 92.2MCH (pG)Date Value07/02/2017 29.2MCHC (g/dL)Date Value07/02/2017 31.7RDW-CV (%)Date 07/02/2017 13.6Platelet Count (k/uL)Date Value07/02/2017 146 (L)MPV (fL)Date Value07/02/2017 12.5ASSESSMENT AND PLAN:56 year old WM s/p TKA R qwy5Xqguawf of tramadol 200mg/day and neurontin 600mg ii tab po tidImpressionStatus post right knee replacementAcute right knee painPlanContinue tylenol, cymbalta, topamax,Continue zanaflex prn, and oxyir prncontinue neurontin to 1200mg tid, home medicationcontinue iv toradol 30mg q 6hrsIf lack of pain control, recommend MScontin 15mg tidDiscuss with Dr. GrewalATURE: SHRAVAN Lynn-CDATE: July 02, 2017TIME: 9:32 AM [facility] Glucose POCT ([facility] [place], [place] A Use Only)on 07-02-2017 Glucose mass conc 97 mg/dL Normal 65-100 [facility] Comment on above: Performed By: #### C MP, IRON, CBCDIF ####[facility] [phone]#### FERR, HBA1C ####[facility] [address] [place] [phone] Glucose mass conc 125 mg/dL High 65-100 [facility] Comment on above: Performed By: #### C MP, IRON, CBCDIF ####[facility] [phone]#### FERR, HBA1C ####[facility] [address] [place] [phone] NURSING PROGon 07-02-2017 NURSING PROG HNO ID: [id number] thor: [place] ([facility]) Paul, RNService: (none)Author Type: Advance Clinical NurseType: Nursing Progress NoteFiled: 07/02/2017 1:37 PMNote Text: Nursing Progress NotePatient Name: Alisia Correa Sr. Location: [address]-_ Daily Note:Patient attended discharge instruction class [...] note was completed by: Geneva Miller RN [facility] NURSING PROG HNO ID: [id number] thor: Sobeida JerryRn) Debbie Francesice: (none)Author Type: Registered NurseType: Nursing Progress NoteFiled: 07/02/2017 3:02 PMNote Text: Nursing Progress NotePatient Name: Alisia Correa Sr. Location: [address]-_ Daily Note:1204: Patient is medically cleared to go home per Dr. Hernandez.1501: Patient is cleared from PT and OT to go home.This note was completed by: Sobeida Frances RN [facility] NURSING PROG HNO ID: [id number] thor: Crystal Nelson) Debbie Camachoice: (none)Author Type: Registered NurseType: Nursing Progress NoteFiled: 07/02/2017 8:56 AMNote Text:MULTIDISCIPLINARY ROUNDSSERVICE DATE: 07/02/2017 ADMISSION DATE: 07/01/2017SERVICE TIME: 8:49 AM ANTICIPATED D/C DATE: 07/02/17Problem List:ACTIVE PROBLEM LISTSPRAIN OF NECK (3/30/4)Spinal Stenosis in Cervical RegionBrachial Neuritis Or RadiculitisDisplacement [...] Rounds:Patient: Alisia Correa Sr.Care Management: Nate Herron Pit Worker Power Shovel: Anna Camacho RNOrtho Instrumental Musician: Anna Miller RNPharmacist: Nicky Sanches Discussed on [...] Concerns;Explain Scheduling and Routine of Care, Test andProcedures;[place] Patient/Family to Hospital/Unit EnvironmentKnowledge Deficit Goals/Outcomes: Participate [...] July 02, 2017 : 8:49 AM CSN: [id number] Nursing Progress NotePatient Name: Alisia Correa Sr. Location: [address]/[place] [address]_ Daily Note: Dr. Rivera placed on consult for tremors. Patient states davonte has a neurologist - patient reports he [...] note was completed by: Crystal Camacho RN [facility] PROGRESSon 07-02-2017 PROGRESS HNO ID: [id number] thor: Ines Art Darshanervice: General Internal MedicineAuthor Type: PhysicianType: Progress NotesFiled: [...] hrs: BP Temp Temp src Pulse Resp RbQ59807/02/17 1455 129/79 37.3 ?C (99.1 ?F) Oral [...] 2+ carotidDATA:CBC, Coags, BMP, Mg, PhosRecent Labs 07/02/161301FUY 6.04HB 10.9*HCT 34.4*PLT 146*NA 139K 3.7CHLOR 105CO2 [...] Without Complication, Without Long-Term CurrentUse of Insulin ([facility])Chronic Pain SyndromeCopd With Chronic Bronchitis ([facility])Arthritis of KneePrimary Osteoarthritis of Right KneeOa (Osteoarthritis) of KneeASSESSMENT AND PLAN: 1. oa2. Copd3. Dm ssi4 bphSIGNATURE: Aimeellapilar Wilsonimani, MDDATE: July 02, 2017TIME: 6:45 PM [facility] PROGRESS HNO ID: [id number] thor: DANIEL Macielervice: Orthopaedic SurgeryAuthor Type: ResidentType: Progress NotesFiled: 07/02/2017 8:40 AMNote Text:ORTHOPAEDIC POSTOP PROGRESS NOTESUBJECTIVEPatient states that they are comfortableWell Controlled knee(s) pain.Denies incisional pain.OBJECTIVEVITAL SIGNS: BP 112/63 Pulse 80 Temp 37.2 ?C (98.9 ?F) (TemporalArtery) Resp 18 Ht 180.3 cm (5' 11 ) Wt 113.4 kg (250 lb) SpO2 95% BMI 34.87 kg/a3AMVJEW AND OUTPUT:Intake/Output Summary (Last 24 hours) at [...] Patient monitored, no new events overnight.LABS:Recent Labs HB 10.9*HCT 34.4*DATA:Diagnostic tests reviewed for today's visit:Most [...] 02, 2017 : 8:40 AM PAGER/CONTACT #: [phone] discuss medical issues with medical co-management physicianOrthopedic issue please page me first, [id number] 6pm and on weekends please contact [facility] On[facility] [phone] [facility] THERAPY NTon 07-02-2017 THERAPY NT HNO ID: [id number] thor: Nellie (Pt) Jerseyervice: Physical TherapyAuthor Type: Physical TherapistType: Therapy (PT/OT/Speech/Resp)Filed: 07/02/2017 3:04 PMNote Text:PHYSICAL THERAPY MISSED VISITSERVICE DATE: 07/02/2017SERVICE TIME: 1330 to 1335ROOM: [id number] County Memorial HospitalAttempted Treatment. Patient not seen due to Declined. Preparing to go toOT for car transfer. Denied questions/concerns from PT standpoint. Clearedafter morning session for D/C home today.SIGNATURE: Nellie David, PT PATIENT NAME: Alisia Correa .DATE: July 02, 2017 : 3:01 PM PAGER/CONTACT #: [phone] [facility] THERAPY NT HNO ID: [id number] thor: Rebecca (Ot) RAMSES Tarangoervice: Occupational TherapyAuthor Type: Occupational TherapistType: Therapy (PT/OT/Speech/Resp)Filed: 07/02/2017 2:43 PMNote Text:Occupational Therapy TreatmentSERVICE DATE: 07/02/2017SERVICE TIME: 1413 to 1437ROOM: [id number] Discharge Disposition: Home OTRecommended Discharge Disposition Comments: [...] Weakness (generalized);Difficultyw alking-musculoskeletalInt erventions Provided: Therapeutic Activity (30584)Therapeutic Activity (90363) Treatment Minutes: 242 unitsSkilled Intervention(s): Instruction in [...] G CODE:OT 6 Clicks Score: 23 (07/02/17 580)Self Care Current Status (G8987): CI (07/02/17 1413)Self Care Goal Status (G8988): CH (07/02/17 1413)Based on clinical assessment and the [...] for this therapy evaluation/treatment.SIGN ATURE: Rebecca Tarango OTR/L PATIENT NAME: Alisia Correa Sr.DATE: July 02, 2017 : 2:40 PM PAGER: [phone] [facility] THERAPY NT HNO ID: [id number] thor: Watson (Ot/L) Janie Connellyice: Occupational TherapyAuthoarin Type: Occupational TherapistType: Therapy (PT/OT/Speech/Resp)Filed: 07/02/2017 11:48 AMNote Text:Occupational Therapy EvaluationSERVICE DATE: 07/02/2017SERVICE TIME: 1036 to 1118ROOM: [id number] Discharge Disposition: Home OTRecommended Discharge Disposition Comments: [...] Weakness (generalized);Difficultyw alking-musculoskeletalInt erventions Provided: Evaluation;Therapeutic Activity (35374);Self CareHome Management (09128)$ Evaluation-Low (57127) Billed Units: 1 unitTherapeutic Activity (87794) Treatment Minutes: 101 unitSkilled Intervention(s): Instructed patient [...] transfers using wheeled walker between bedand chair.Self Longterm Management (25389) Treatment Minutes: 171 unitSkilled Intervention(s): Instructed in [...] July 02, 2017 : 11:33 AM PAGER: [phone] [facility] THERAPY NT HNO ID: [id number] thor: Nellie (Pt) GuddyService: Physical TherapyAuthor Type: Physical TherapistType: Therapy (PT/OT/Speech/Resp)Filed: 07/02/2017 11:05 AMNote Text:Physical Therapy TreatmentSERVICE DATE: 07/02/2017SERVICE TIME: 917 to OOM: [id number] Discharge Disposition: Home PTAnticipated Discharge Needs: Physical [...] Extremity Weight Bearing Status: WBATASSESSMENT :Pt c/o 8 pain but mobilizing well and able to [...] Diagnosis: Reduced mobility-otherInterventio ns Provided: Therapeutic Exercise (80923);Therapeutic Activity(74610);Gait Training (73937)Therapeutic Exercise (75643) Treatment Minutes: 201 unitSkilled Intervention(s): Instruction in therapeutic exercise seated andsupine TKR exercisesVerbal and tactile cuing provided .Education in HEp and TKR bookletTherapeutic Activity (62704) Treatment Minutes: 101 unitSkilled Intervention(s): Instructed patient in sit to supine using safe,effective techniqueEducation with POC, precautions, home management and set up, nonpharm paincontrol techniques, nonpharm pain control techniques, conservation ofenergy techniquesGait Training (46048) Treatment Minutes: 242 unitsSkilled Intervention(s): Instruction in [...] Assistance (with use of sheet as leg special collections librarian after 2trials)Scooting Modified IndependentSit to Stand Stand [...] Alisia Correa Sr.DATE: July 02, 2017 : 10:58 AM PAGER/CONTACT #: [phone] [facility] ANES Brian 07-01-2017 ANES POST HNO ID: [id number] thor: Antonio E Stockton IIService: AnesthesiologyAuthor Type: AnesthesiologistType: Anesthesia PostOpFiled: [...] 2017 : 11:34 AM PAGER/CONTACT #: [phone] [facility] ANES PREOPon 07-01-2017 ANES PREOP HNO ID: [id number] thor: Antonio Stockton IIService: AnesthesiologyAuthor Type: AnesthesiologistType: Anesthesia PreOpFiled: 07/01/2017 7:13 AMNote Text: ANESTHESIOLOGY DAY OF SURGERY NOTESERVICE DATE: 07/01/2017SERVICE TIME: 11DOB: 1960Procedure(s) (LRB):ARTHROPLASTY REPLACE JOINT TOTAL KNEE (Right)Surgeon(s):Swati SeniorEstimated body mass index is 34.87 kg/(m2) as calculated from thefollowing: Height as of 06/17/17: 180.3 cm (5' 11 ). Weight as of 06/17/17: 113.4 kg (250 lb).Most recent hematocrit and potassium results:Hematocrit 40.0 06/17/2017Potassium 4.4 06/17/2017ANES DOS/PREOP NOTE:Vitals: 07/01/999661GW: 115/74Pulse: 67Resp: 16Temp: (!) 35.9 ?C (96.6 [...] HISTORYProcedure Laterality Date- COLONOSCOP W/ OR W/O [facility] SPEC Colonoscopy- EGD W/O OR W/BRUSH/WASH 2015 [...] within 48 hours ofSurgery/Procedure.IMANI COELHO: Antonio Stockton II, DO PATIENT NAME: Alisia Correa Sr.DATE: July 01, 2017 : 7:11 AM CSN: [id number] [facility] BRIEF OP NOTon 07-01-2017 BRIEF OP NOT HNO ID: [id number] thor: Tyron Lebronice: Orthopaedic SurgeryAuthor Type: PhysicianType: Brief Op NoteFiled: 07/01/2017 9:44 AMNote Text:TOTAL KNEE ARTHROPLASTYBRIEF OPERATIVE / PROCEDURE NOTELOG ID: [id number]/Procedure Date: 07/01/2017Incision/Procedu re Start Time: 8:12 AMIncision Close/Procedure End Time:Surgeon(s)/Procedura list(s) and Pct(s):Surgeon(s) and Role: * Swati Senior - Primary * Tyron Rose - FellowSurgical Pct: Kd Navarro (Shravan) FineganProcedure(s):Proce phuonge(s) (LRB):ARTHROPLASTY REPLACE JOINT TOTAL KNEE (Right)Anesthesia: GeneralPeripheral Block Type: None pre-opApproach: Median parapatellarFindings: see operative reportEstimated Blood Loss: 150 mlsSpecimens: NoneComplications: NoneImplant:Implant Name Type Inv. Item Serial No. Multiple Tube Winding Machine Operator Lot No. LRB No. UsedPIN TRIATHLON 3IN FIXATION HEADLESS FLUTED KNEE - [id number] Pin PINTRIATHLON 3IN FIXATION HEADLESS FLUTED KNEE STRY/[employer] [id number] TRIATHLON 7 PA FEMORAL CRUCIATE RETAIN BEAD KNEE RIGHT -[id number] Joint - Knee COMPONENT TRIATHLON 7 PA FEMORAL CRUCIATE RETAINBEAD KNEE RIGHT STRY/[employer] [id number] Right 1INSERT TRIATHLON 6 X3 13MM TIBIAL CONDYLAR STABILIZED KNEE - [id number] - Knee INSERT TRIATHLON 6 X3 13MM TIBIAL CONDYLAR STABILIZED KNEESTRY/[employer] [id number] Right 1BASEPLATE TRIATHLON 6 TRITANIUM [id number] TIBIAL 4 CRUCIFORM PEG KEEL KNEE -[id number] Joint - Knee BASEPLATE TRIATHLON 6 TRITANIUM [id number] TIBIAL 4CRUCIFORM PEG KEEL KNEE STRY/[employer] [id number] Right 1COMPONENT TRITANIUM 35MM METAL 10MM PATELLAR ASYMMETRIC KNEE - [id number] - Knee COMPONENT TRITANIUM 35MM METAL 10MM PATELLAR ASYMMETRIC KNEE STRY/[employer] D4Y3 Right 1Bearing Surface: FixedFixation: CementlessSSI Risk Factors: DMConstraint: Cruciate RetainingOther: NonePre-Op/Pre-Procedure Diagnosis: Primary osteoarthritis of right knee[M17.11]Post-Op/Post- Procedure Diagnosis: Primary osteoarthritis of right knee[M17.11]Weight Bearing Status: Weight Bearing As ToleratedSIGNATURE: Tyron Rose MD PATIENT NAME: Alisia Correa Sr.DATE: July 01, 2017 : 9:43 AM PAGER/CONTACT #: [phone] [facility] CASE MGT INIT Amira 2016 CASE MGT INIT JR HNO ID: [id number] thor: Kerri () HouseService: Care ManagementAuthor Type: Social WorkerType: Care Mgt Initial AssessmentFiled: 07/01/2017 1:46 PMNote Text:CARE MANAGEMENT: ASSESSMENT AND DISCHARGE PLANSERVICE DATE: 07/01/2017SERVICE TIME: 12:00pmPRFORMERLY [facility] PHYSICIAN:Ellen Crabtree, DOPhone: [phone] STATUS: InpatientPOTENTIAL DISCHARGE PLANSHomeHome CareHome OT/PTPatient/Representati ve Stated Goals: return home.Needs Prior to Discharge: To Be Determined;Discharge Prescriptions;OT/PTEvalua tion;Discharge Transportation;Pharmacy Bedside DeliveryHealth Insurance: Medical [place] ServicesLiving Arrangement: HomeLives With: SpouseFinancial Resources: RetiredPrimary Contact:Extended Emergency Contact InformationPratrium health mercyry Emergency Contact: Armen Correaddress: [address] [place] [id number] Phktlpxp: SpouseSupportive: Yes- at bedsideOther Important Patient Contacts: [...] Have Advance Directives? Yes: Durable Power of Battery Container Finishing Hand forHealth Care: Dipti Correa , copy is [...] the Provider List: YesProvider List: Home CarePreference: [facility] service in April.HANDOFF COMMUNICATION:referral sent to [facility]. anticipate d/c home tomorrow.SIGNATURE: LIZETT Sweeney PATIENT NAME: Alisia Correa Sr.DATE: July 01, 2017 : 1:41 PM PAGER/CONTACT #: [facility] CONSULTon 07-01-2017 CONSULT HNO ID: [id number] thor: Ines TurnerniService: General Internal MedicineAuthor Type: PhysicianType: ConsultsFiled: 07/01/2017 [...] HISTORYProcedure Laterality Date- COLONOSCOP W/ OR W/O [facility] SPEC Colonoscopy- EGD W/O OR W/BRUSH/WASH 2015 [...] 18, height 180.3 cm (5' 11 ), udrbhx361.4 kg (250 lb), SpO2 98 %.General appearance: [...] Hernandez, MDDATE: July 01, 2017TIME: 9:01 PM [facility] CONSULT HNO ID: [id number] thor: Sonny Pablo) NovakService: Pain ManagementAuthor Type: [...] (How often does the pain occur?) occurs [id number] WM cc R knee painPERTINENT ROS:denies fever, [...] HISTORYProcedure Laterality Date- COLONOSCOP W/ OR W/O [facility] SPEC Colonoscopy- EGD W/O OR W/BRUSH/WASH 2016 [...] 83 Potassium (mmol/L)Date Value06/17/2017 4.4 Sodium (mmol/L)Date 06/17/2017 140 Chloride (mmol/L)Date 06/17/2017 104 CO2 (mmol/L)Date Value06/17/2017 25 Creatinine (mg/dL)Date 06/17/2017 1.07 BUN (mg/dL)Date 06/17/2017 18 Anion Gap (mmol/L)Date Value06/17/2017 11 Calcium (mg/dL)Date 06/17/2017 9.2 WBC (k/uL)Date Value06/17/2017 3.86RBC (m/uL)Date 06/17/2017 4.35Hemoglobin (g/dL)Date 06/17/2017 12.8 (L)Hematocrit (%)Date Value06/17/2017 40.0MCV (fL)Date Value06/17/2017 92.0MCH (pG)Date Value06/17/2017 29.4MCHC (g/dL)Date Value06/17/2017 32.0RDW-CV (%)Date Value06/17/2017 14.3Platelet Count (k/uL)Date Value06/17/2017 176MPV (fL)Date 06/17/2017 12.3ASSESSMENT AND PLAN:56 year old WM s/p TKA RHistory of tramadol 200mg/day and neurontin 600mg ii tab po tidImpressionStatus post right knee replacementAcute right knee painPlanContinue tylenol, cymbalta, topamax,Continue zanaflex prn, and oxyir prnIncrease neurontin to 1200mg tid, home medicationWill add iv toradol 30mg q 6hrsIf lack of pain control, recommend MScontin 15mg tidDiscuss with Dr. ShepardATURE: YUVAL LynnCDATE: July 01, 2017TIME: 2:35 PM [facility] Glucose POCT ([facility] [place], [place] A Use Only)on 07-01-2017 Glucose mass conc 117 mg/dL High [address] [place] [address] Comment on above: Performed By: #### C MP, IRON, CBCDIF ####[place] [phone]#### FERR, HBA1C ####[place] [address] Glucose mass conc 115 mg/dL High [address] [place] [address] Comment on above: Performed By: #### C MP, IRON, CBCDIF ####[place] [phone]#### FERR, HBA1C ####[place] [address] Glucose mass conc 128 mg/dL High [address] [place] [address] Comment on above: Performed By: #### C MP, IRON, CBCDIF ####[place] [phone]#### FERR, HBA1C ####[facility] [place] [address] Glucose mass conc 103 mg/dL High [address] [place] [address] Comment on above: Performed By: #### C MP, IRON, CBCDIF ####[place] [phone]#### FERR, HBA1C ####[place] [address] NURSING PROGon 07-01-2017 NURSING PROG HNO ID: [id number] thor: Chato Osborn (Rn) Jeanna, RNService: NursingAuthor Type: Registered NurseType: Nursing Progress NoteFiled: 07/01/2017 12:08 PMNote Text: Nursing Progress NotePatient Name: Alisia Correa Location: [address]-_ Daily Note:PT admitted from PACU in bed [...] note was completed by: Chato Meeks RN [facility] NURSING PROG HNO ID: [id number] thor: Bambi (Rn) JAMIE Moellerervice: (none)Author Type: Registered NurseType: Nursing Progress NoteFiled: 07/01/2017 9:56 AMNote Text:Discharge Status:Patient is Awakening, and is no airway issues. Skin condition was WNL andwarm.Transported to recovery room via bed with siderails up. Accompanied byanesthetist and BILL/. [facility] NURSING PROG HNO ID: [id number] thor: Kaylee (Rn) Aimee RNService: (none)Author Type: Registered NurseType: Nursing Progress NoteFiled: 07/01/2017 11:13 AMNote Text: Nursing Progress NotePatient Name: Alisia Correa . [facility] Daily Note:pt to pacu; sleepy. drsg to [...] note was completed by: Kaylee Yu RN [facility] NURSING PROG HNO ID: [id number] thor: Bambi JerryRn) Debbie Moellerice: (none)Author Type: Registered NurseType: Nursing Progress NoteFiled: 07/01/2017 8:21 AMNote Text:Patient transported to the OR via cart, accompanied by Sabrina Shi.Level of consciousness: Alert and Oriented x 3Emotional Status:CalmSensory Impairments: NoLanguage Barrier: NoMobility Impairments: NoAddressed any patient concerns regarding consents, OR environment, andanesthetics.Body temperature maintained by maintaining OR room temperature -07 degrees F, providing patient with warm bath blankets, limiting areasof exposure and providing warm irrigation fluid. [facility] NURSING PROG HNO ID: [id number] thor: Neetu JerryRn) Allison Munson: (none)Author Type: Registered NurseType: Nursing Progress NoteFiled: 07/01/2017 7:27 AMNote Text: Nursing Progress NotePatient Name: Alisia Correa Sr. [facility] Daily Note:AANDO.Lungs clear. Rt leg pink, warm, brisk refill. Strongdorsiflexion, pos sensation. Rt DP and PT pulses palp. Pain all over fromarthritis 04/27. Numbness/tingling to both feet.This note was completed by: Neetu Munson RN [facility] OPERATIVE NOon 07-01-2017 OPERATIVE NO HNO ID: [id number] thor: Swati Hansonervice: Orthopaedic SurgeryAuthor Type: PhysicianType: Operative ReportFiled: 07/01/2017 12:16 PMNote Text:OPERATIVE NOTEPATIENT NAME: Alisia Correa Sr. ID: [id number] Date: 07/01/2017Surgeon(s) and Pct(s):Surgeon(s) and Role: * Swati Senior - Primary [...] ccImplants:Implant Name Type Inv. Item Serial No. Multiple Tube Winding Machine Operator Lot No. LRB No. UsedPIN TRIATHLON 3IN FIXATION HEADLESS FLUTED KNEE - [id number] Pin PINTRIATHLON 3IN FIXATION HEADLESS FLUTED KNEE STRY/[employer] [id number] TRIATHLON 7 PA FEMORAL CRUCIATE RETAIN BEAD KNEE RIGHT -[id number] Joint - Knee COMPONENT TRIATHLON 7 PA FEMORAL CRUCIATE RETAINBEAD KNEE RIGHT STRY/[employer] [id number] Right 1INSERT TRIATHLON 6 X3 13MM TIBIAL CONDYLAR STABILIZED KNEE - [id number] - Knee INSERT TRIATHLON 6 X3 13MM TIBIAL CONDYLAR STABILIZED KNEESTRY/[employer] [id number] Right 1BASEPLATE TRIATHLON 6 TRITANIUM 31Q02GO TIBIAL 4 CRUCIFORM PEG KEEL KNEE -[id number] Joint - Knee BASEPLATE TRIATHLON 6 TRITANIUM 98G33TH TIBIAL 4CRUCIFORM PEG KEEL KNEE STRY/[employer] [id number] Right 1COMPONENT TRITANIUM 35MM METAL 10MM PATELLAR ASYMMETRIC KNEE - [id number] - Knee COMPONENT TRITANIUM 35MM METAL 10MM [...] verified this against the epicondylar axis and [place]'sline.The femur was sized and drill holes were [...] resected leaving a healthy remnant with greater uduc47bc thickness. The patella was sized with the [...] Senior, MDDATE: July 01, 2017TIME: 12:16 PM [facility] PT EDon 07-01-2017 PT ED HNO ID: [id number] thor: Chely (Rn) Jeremy, JAMIEervice: (none)Author Type: Registered NurseType: Patient EducationFiled: 07/01/2017 7:12 AMNote Text:PATIENT EDUCATION TOPIC: PROCEDURE / SURGERY: Pre-op Teaching: Post opcarePATIENT NAME: Alisia Correa . LOCATION: [place] [address] NESS TO LEARNCOGNITIVE ABILITY: Alert and orientedMOTIVATION [...] (RECOMMENDATION): NoneElectronically Signed By: Chely Luna RN [facility] PT ED HNO ID: [id number] thor: María (Rn) JAMIE Grubbservice: NursingAuthor Type: Registered NurseType: Patient EducationFiled: 07/01/2017 6:15 AMNote Text:PATIENT EDUCATION TOPIC: PROCEDURE / SURGERY: Pre-op Teaching:Logistics ProtocolsComplication PreventionSurgical Safety PrinciplesPATIENT NAME: Alisia Correa Sr. LOCATION: [place] [address]I NESS TO LEARNCOGNITIVE ABILITY: Alert and orientedMOTIVATION [...] (RECOMMENDATION): NoneElectronically Signed By: María Grubbs RN [facility] THERAPY NTon 07-01-2017 THERAPY NT HNO ID: [id number] thor: Nellie (Pt) AddiddyService: Physical TherapyAuthor Type: Physical TherapistType: Therapy (PT/OT/Speech/Resp)Filed: 07/01/2017 4:47 PMNote Text:Physical Therapy EvaluationSERVICE DATE: 07/01/2017SERVICE TIME: 1545 to 1630ROOM: [id number] Discharge Disposition: Home PTAnticipated Discharge Needs: Physical [...] Diagnosis: Reduced mobility-otherInterventio ns Provided: Evaluation;Gait Training (59181);TherapeuticActivi ty (59650)$ Evaluation-Low (60971) Billed Units: 1 unitTherapeutic Activity (55585) Treatment Minutes: 121 unitSkilled Intervention(s): Instructed patient in supine to sit pushing withupper extremities to sit upEducation with POC, precautions, TKR booklet, nonpharm pain controltechniques, toileting, assisted to jose underwear, home management and setupGait Training (03550) Treatment Minutes: 131 unitSkilled Intervention(s): Instruction in [...] 56 y.o male amditted 07/01/17 s/pR TKR. PMH icnludes OA, YOLA, gastric bypass, L TKR 10/07/2013, L TKRrevision 04/27/17Patient Report: Everything went well after my knee revision (left) thisapril Home EnvironmentPatient Lives With: Significant OtherAssistance Available: PRNEntry To Home: StairsNumber Of Stairs Into Home: 2 (platform)Number Of Stairs To Bed/Bath: 0Equipment Owned: Cane;Wheeled WalkerPrior Functional Level: Within Functional Limits (ambulated with cane vswalker)OBJECTIVE:CURREN T FUNCTIONAL STATUS:Current Functional Mobility Assist Level Additional [...] details for this therapy evaluation/treatment.SIGN ATURE: Nellie David, PT PATIENT NAME: Alisia Correa Sr.DATE: July 01, 2017 : 4:41 PM PAGER/CONTACT #: [phone] [facility] NURSING PROGon 06-19-2017 NURSING PROG HNO ID: [id number] thor: Renae Cox (Rn) Burak, RNService: (none)Author Type: Registered NurseType: Nursing Progress NoteFiled: 06/19/2017 10:02 AMNote Text:PACC visit 06/17/17. H/O SDM,BMI35,YOLA,COPD/asthma . 06/17/17 nasalcANDs(-),ts,ferritin a1c, cbc/d,bmp,iron studies. 04/15/17 ekg. 05/20/17 kneexr. Chart check complete. Penelope HAMILTON [facility] CBC and Differentialon 06-17 Abs Baso 0.03 k/uL Normal 0.00-0.[address] [facility] Comment on above: Performed By: #### C MP, IRON, CBCDIF ####[place] [phone]#### FERR, HBA1C ####[facility] [address] [place] AvVanessa [place] [phone] Abs [place] 0.35 k/uL Normal 0.00-0.[address] [facility] Comment on above: Performed By: #### C MP, IRON, CBCDIF ####[place] [phone]#### FERR, HBA1C ####[facility] [phone] Abs Neut 2.15 k/uL Normal 1.45-7.[address] [facility] Comment on above: Performed By: #### C MP, IRON, CBCDIF ####[place] [phone]#### FERR, HBA1C ####[facility] AveCTimothy Ville [phone] Basophils/100 WBC Auto (Bld) 0.8 % [facility] Comment on above: Performed By: #### C MP, IRON, CBCDIF ####[place] [phone]#### FERR, HBA1C ####[place] [address] [address] AveCMary [place] [phone] Eosinophils 0.19 10*3/uL Normal 0.00-0.[address] [facility] Comment on above: Performed By: #### C MP, IRON, CBCDIF ####[place] [phone]#### FERR, HBA1C ####[place] [address] [address] AveCCarla Ville [address] Eosinophils/100 leukocytes 4.9 % [facility] Comment on above: Performed By: #### C MP, IRON, CBCDIF ####[place] [phone]#### FERR, HBA1C ####[place] [address] [address] AveCCarla [place] [address] Erythrocyte distribution width Auto Ratio (RBC) 14.3 % Normal 11.5-15.[address] [facility] Comment on above: Performed By: #### C MP, IRON, CBCDIF ####[place] [phone]#### FERR, HBA1C ####[place] [address] [address] Ave[address]arla [place] [address] Erythrocytes (RBC) 0.0 /100 WBC Normal 0 [facility] Comment on above: Performed By: #### C MP, IRON, CBCDIF ####[address] #### FERR, HBA1C ####[place] [address] [address] [phone] Erythrocytes (RBC) 4.35 10*6/uL Normal 4.20-6.00 [facility] Comment on above: Performed By: #### C MP, IRON, CBCDIF ####[address] #### FERR, HBA1C ####[address] AvTeresa Ville [phone] Hematocrit (HCT) 40.0 % Normal 39.0-51.[address] [facility] Comment on above: Performed By: #### C MP, IRON, CBCDIF ####[place] [phone]#### FERR, HBA1C ####[place] [phone] Hemoglobin mass conc (Bld) 12.8 g/dL Low 13.0-17.[address] [facility] Comment on above: Performed By: #### C MP, IRON, CBCDIF ####[place] [phone]#### FERR, HBA1C ####[place] [phone] Lymphocytes 1.14 10*3/uL Normal 1.00-4.[address] [facility] Comment on above: Performed By: #### C MP, IRON, CBCDIF ####[place] [phone]#### FERR, HBA1C ####[place] [phone] Lymphocytes/100 leukocytes 29.5 % Normal [facility] Comment on above: Performed By: #### C MP, IRON, CBCDIF ####[address] #### FERR, HBA1C ####[place] [address] [address] [place] [phone] MCH 29.4 pG Normal 26.0-34.[address] [facility] Comment on above: Performed By: #### C MP, IRON, CBCDIF ####[place] [phone]#### FERR, HBA1C ####[place] [address] [address] [place] [phone] MCHC mass conc (RBC) 32.0 g/dL Normal 30.5-36.0 [facility] Comment on above: Performed By: #### C MP, IRON, CBCDIF ####[place] [phone]#### FERR, HBA1C ####[place] [phone] MCV 92.0 fL Normal 80.0-100.0 [facility] Comment on above: Performed By: #### C MP, IRON, CBCDIF ####[place] [phone]#### FERR, HBA1C ####[place] [phone] Monocytes/100 leukocytes 9.1 % Normal [facility] Comment on above: Performed By: #### C MP, IRON, CBCDIF ####[address] #### FERR, HBA1C ####[place] [phone] Neutrophils/100 WBC Auto (Bld) 55.7 % Normal [facility] Comment on above: Performed By: #### C MP, IRON, CBCDIF ####[address] #### FERR, HBA1C ####[place] [address] [place] [phone] Platelet mean volume (PMV) 12.3 fL Normal 9.0-12.[address] [facility] Comment on above: Performed By: #### C MP, IRON, CBCDIF ####[place] [phone]#### FERR, HBA1C ####[place] [phone] Platelets 176 10*3/uL Normal 150-[address] [facility] Comment on above: Performed By: #### C MP, IRON, CBCDIF ####[place] [phone]#### FERR, HBA1C ####[phone] WBC (Leukocytes) 3.86 10*3/uL Normal 3.70-11.00 [facility] Comment on above: Performed By: #### C MP, IRON, CBCDIF ####[place] [phone]#### FERR, HBA1C ####[place] [phone] Comp Metabolic Panelon 06-17 Alanine aminotransferase (ALT) 14 U/L Normal 5-[address] [facility] Comment on above: Performed By: #### C MP, IRON, CBCDIF ####[address] #### FERR, HBA1C ####[place] [phone] Albumin 4.1 g/dL Normal 3.5-5.[address] [facility] Comment on above: Performed By: #### C MP, IRON, CBCDIF ####[address] #### FERR, HBA1C ####[place] [phone] Alkaline phosphatase (ALP) 95 U/L Normal 40-[address] [facility] Comment on above: Performed By: #### C MP, IRON, CBCDIF ####Jain [address], [place] [phone]#### FERR, HBA1C ####[place] [address] Anion gap 11 mmol/L Normal 10-[address] [facility] Comment on above: Performed By: #### C MP, IRON, CBCDIF ####[place] [phone]#### FERR, HBA1C ####[place] [address] Aspartate aminotransferase (AST) 18 U/L Normal 7-[address] [facility] Comment on above: Performed By: #### C MP, IRON, CBCDIF ####[place] [phone]#### FERR, HBA1C ####[place] [address] Bilirubin (total) 0.2 mg/dL Normal 0.0-1.5 [facility] Comment on above: Performed By: #### C MP, IRON, CBCDIF ####[address] #### FERR, HBA1C ####[place] [address] Calcium 9.2 mg/dL Normal 8.5-10.[address] [facility] Comment on above: Performed By: #### C MP, IRON, CBCDIF ####[place] [phone]#### FERR, HBA1C ####[address] [place] [address] Chloride 104 mmol/L Normal 98-[address] [facility] Comment on above: Performed By: #### C MP, IRON, CBCDIF ####[address] #### FERR, HBA1C ####[place] [address] [place] [address] CO2 25 mmol/L Normal 23-[address] [facility] Comment on above: Performed By: #### C MP, IRON, CBCDIF ####[place] [phone]#### FERR, HBA1C ####[place] [address] Creatinine 1.07 mg/dL Normal 0.70-1.[address] [facility] Comment on above: Performed By: #### C MP, IRON, CBCDIF ####[place] [phone]#### FERR, HBA1C ####[place] [address] eGFR (non-black) mL/min/{1.73_m2} Normal >60 [facility] Comment on above: Performed By: #### C MP, IRON, CBCDIF ####[place] [phone]#### FERR, HBA1C ####[place] [address] Glucose mass conc 83 mg/dL Normal 65-100 [facility] Comment on above: Performed By: #### C MP, IRON, CBCDIF ####[address] #### FERR, HBA1C ####[place] [address] Potassium molar conc 4.4 mmol/L Normal 3.5-5.0 [facility] Comment on above: Performed By: #### C MP, IRON, CBCDIF ####[address] #### FERR, HBA1C ####[place] [address] [place] [phone] Protein 7.1 g/dL Normal 6.0-8.[address] [facility] Comment on above: Performed By: #### C MP, IRON, CBCDIF ####[place] [phone]#### FERR, HBA1C ####[address] Av[address]essa [place] [phone] Sodium 140 mmol/L Normal 135-[address] [facility] Comment on above: Performed By: #### C MP, IRON, CBCDIF ####[place] [phone]#### FERR, HBA1C ####[place] [phone] Urea nitrogen 18 mg/dL Normal 10-[address] [facility] Comment on above: Performed By: #### C MP, IRON, CBCDIF ####[place] [phone]#### FERR, HBA1C ####[place] [phone] Ferritinon 06-17-2017 Ferritin 45.3 ng/mL Normal 30.3-565.[address] [facility] Comment on above: Performed By: #### C MP, IRON, CBCDIF ####[place] [phone]#### FERR, HBA1C ####[address] Av[address] [place] [phone] Hemoglobin A1con 06-17-2017 Glucose mass conc 105 mg/dL Normal [facility] Comment on above: Result Comment: eAG: (Estimated average glucose) is a calculated value from HgbA1c and is product representative of the average blood glucose level in the last 2-3 month period. Performed By: #### C MP, IRON, CBCDIF ####[place] [phone]#### FERR, HBA1C ####[place] [phone] Hemoglobin A1c/Hemoglobin.total mass fraction (Bld) 5.3 % Normal 4.3-5.[address] [facility] Comment on above: Performed By: #### C MP, IRON, CBCDIF ####[place] [phone]#### FERR, HBA1C ####[place] [phone] Iron and TIBCon 06-17-2017 Iron 42 ug/dL Normal 35-[address] [facility] Comment on above: Performed By: #### C MP, IRON, CBCDIF ####[place] [phone]#### FERR, HBA1C ####[place] [phone] TIBC 335 ug/dL Normal 250-[address] [facility] Comment on above: Performed By: #### C MP, IRON, CBCDIF ####[place] [phone]#### FERR, HBA1C ####[place] [phone] Transferrin Saturatn 13 % Low 20-55 [facility] Comment on above: Performed By: #### C MP, IRON, CBCDIF ####[place] [phone]#### FERR, HBA1C ####[place] [phone] Staph aureus PCRon 7 MRSA PCR Negative Normal [facility] Comment on above: Performed By: #### S APCR ####[place] [phone] [phone] S aureus Spec Source Nasal [facility] Comment on above: Performed By: #### S APCR ####Jain [address] [phone] [phone] Staph aureus PCR Negative [facility] Comment on above: Performed By: #### S APCR ####[address] [phone] [phone] Type and SCR (30D)on 017 ABO/RH(D) Negative [facility] Comment on above: Performed By: #### T SCR30 ####[address] [phone] Antibody Screen Negative [facility] Comment on above: Performed By: #### T SCR30 ####[address] [phone] HOSPon 05-20-2017 HOSP Patient:Eddi Correa .MRN: Height:5' 11 (1.803 m)Weight:250 lb (113.399 kg)Outpatient [...] ORAL per tablettamsulosin (FLOMAX) 0.4 mg ORAL [id number] Sulfate 1.25 mg/3 mL INHALATION nebulizer solutionALBUTEROL [...] [Moxifloxacin Hcl]Celebrex [Celecoxib]Erythromycin BaseKlonopin [Clonazepam]Levaquin [Levofloxacin]Date Verified: 17Lab ValuesLab Value Units Date High LowPOTA* 4.4 mmol/L 06/17/2017 5.0 3.5HEMA* 40.0 % 06/17/2017 51.0 39.0Progress Notes (PT [facility]):Nisa Jackman PT 06/24/2017 10:58 AM SignedPatient was seen for TKR measurements today.See flowsheet data for results of measurement.Nisa Jackman, PT, DPTProgress Notes (PRE ANES CONFUCIANISM):Lily Porras CNP 06/17/2017 1:29 PM SignedHISTORY AND PHYSICAL EXAMINATIONSERVICE DATE: 06/17/2017SERVICE TIME: 9[facility]: NANCY Wolf FOR VISIT:Alisia Correa [...] ofInsulin ([facility])Chronic Pain SyndromeCopd With Chronic Bronchitis ([facility])Arthritis of KneePrimary Osteoarthritis of Right KneeSUBJECTIVECHIEF COMPLAINT: [...] HISTORYProcedure Laterality Date- COLONOSCOP W/ OR W/O [facility] SPEC Colonoscopy- EGD W/O OR W/BRUSH/WASH 2015 [...] documented by Carla Edwards LPN on 04/15/2017 [id number].Pt reports ALL Medications are accurate 04/15/17CURRENT ALLERGIES:ALLERGIESAllerg en Reactions- Avelox [Moxifloxaci* Rash, Hives, Itching, Shortness of Breath- Celebrex [Celecoxib] Rash, Hives, GI Upset- Erythromycin Base Hives, Shortness of Breath- Klonopin [Clonazepa* Itching- Levaquin [Levofloxa* HivesREVIEW OF SYSTEMS:PAIN ASSESSMENT: PainPain Score: 5/10Pain Location: Knee-RightDescription: Dull;AchingDuration Amount of Time: 1Duration Units: YearsFrequency: ContinuousIntervention: ColdGeneral: No weight loss, malaise or fevers.Neuro: No history of TIA's, stroke, [employer] tumor, impaired sensorium, hemiplegia,paraplegia or quadraplegia. No neurological symptoms or problems., Postive forNo history of TIA's, stroke, [employer] TECHNICIAN tumor, impaired sensorium, hemiplegia,paraplegia or quadraplegia. No neurological symptoms or problems.Respiratory: Positive for Asthma, Mild COPD: daily inhalers + prn. Smoker. YOLA(doesn not use cpap)Cardiovascular: No history of HTN requiring medication, no history of angina,CHF, VT, cardiac surgery or stents. Denies rest pain, [...] 17, 2017 : 9:03 AM PAGER/CONTACT #: [phone] Ellis, CNP 06/17/2017 9:48 AM AddendumPATIENT PREOPERATIVE INSTRUCTIONSSwati Senior MD has scheduled you for your procedure at this surgerycenter:[facility]: [phone] --[address] [place] [address].You will need to call the day prior [...] surgery.- NO jewelry, body piercings, makeup, nail spanish, hairpins or contacts are nirmal worn the [...] Arrival Time for Surgery:- You MUST call [facility] the afternoon before surgery [...] with dates and timesprovided. Ny Chao LPN [facility] Vital Signs Date Time Vital Sign Value Performing Clinician Facility 03-15-2024 11:18-0400 Blood Pressure Location [place] [facility] 03-15-2024 11:18-0400 Body temperature 98.24 [degF] Pippa Orzech [facility] 03-15-2024 11:18-0400 Diastolic blood pressure 88 mm[Hg] Pippa Orzech [facility] 03-15-2024 11:18-0400 Heart rate 73 /min Pippa Orzech [facility] 03-15-2024 11:18-0400 Respiratory rate 16 /min Pippa Orzech [facility] 03-15-2024 11:18-0400 Systolic blood pressure 138 mm[Hg] Pippa Orzech [facility] 02-11-2024 10:18-0400 Diastolic blood pressure 80 mm[Hg] DO Ellen Kuns Work Phone: [facility] 02-11-2024 10:18-0400 Heart rate 60 /min DO Ellen Kuns Work Phone: [facility] 02-11-2024 10:18-0400 Respiratory rate 16 /min DO Ellen Kuns Work Phone: [facility] 02-11-2024 10:18-0400 SaO2% (BldA) [Mass fraction] 97 % DO Ellen Kuns Work Phone: [facility] 02-11-2024 10:18-0400 Systolic blood pressure 139 mm[Hg] DO Ellen Kuns Work Phone: [facility] 02-11-2024 08:29-0400 Body height 177.8 cm DO Ellen Kuns Work Phone: [facility] 02-11-2024 08:29-0400 Body weight 95.25 kg DO Ellen Kuns Work Phone: [facility] 02-10-2024 13:09-0400 Body height 180.34 cm [facility] 02-10-2024 13:09-0400 Body mass index (BMI) [Ratio] 29.2 kg/m2 [facility] 02-10-2024 13:09-0400 Body weight 95.25 kg [facility] 02-10-2024 13:09-0400 Diastolic blood pressure 60 mm[Hg] [facility] 02-10-2024 13:09-0400 Heart rate 67 /min [facility] 02-10-2024 13:09-0400 Respiratory rate 16 /min [facility] 02-10-2024 13:09-0400 SaO2% (BldA) [Mass fraction] 97 % [facility] 02-10-2024 13:09-0400 Systolic blood pressure 112 mm[Hg] [facility] 01-22-2024 08:59-0400 Body height 180.34 cm [facility] 01-22-2024 08:59-0400 Body mass index (BMI) [Ratio] 27.8 kg/m2 [facility] 01-22-2024 08:59-0400 Body weight 90.71 kg [facility] 01-22-2024 08:59-0400 Diastolic blood pressure 62 mm[Hg] [facility] 01-22-2024 08:59-0400 Heart rate 62 /min [facility] 01-22-2024 08:59-0400 Systolic blood pressure 112 mm[Hg] [facility] 11-16-2023 13:17-0500 Diastolic blood pressure 82 mm[Hg] Loree SPEARS Work Phone: [facility] 11-16-2023 13:17-0500 Heart rate 58 /min Loree SPEARS Work Phone: [facility] 11-16-2023 13:17-0500 Systolic blood pressure 144 mm[Hg] Loree SPEARS Work Phone: [facility] 11-10-2023 14:30-0500 Body height 180.34 cm Ellen Kuns Other [facility] 11-10-2023 14:30-0500 Diastolic blood pressure 80 mm[Hg] Ellen Kuns Other [facility] 11-10-2023 14:30-0500 Respiratory rate 16 /min Ellen Kuns Other [employer] Other 11-10-2023 14:30-0500 SaO2% (BldA) [Mass fraction] 94 % Ellen Kuns Other [employer] Other 11-10-2023 14:30-0500 Systolic blood pressure 128 mm[Hg] Ellen Kuns Other [facility] 09-02-2023 13:45-0500 Body height 180.34 cm Ellen Kuns Other [employer] Other 09-02-2023 13:45-0500 Diastolic blood pressure 62 mm[Hg] Ellen Kuns Other [employer] Other 09-02-2023 13:45-0500 Respiratory rate 18 /min Ellen Kuns Other [employer] Other 09-02-2023 13:45-0500 SaO2% (BldA) [Mass fraction] 97 % Ellen Kuns Other [employer] Other 09-02-2023 13:45-0500 Systolic blood pressure 92 mm[Hg] Ellen Kuns Other [employer] Other 05-19-2023 15:15-0400 Body height 180.34 cm Ellen Kuns Other [place] [employer] Other 05-19-2023 15:15-0400 Diastolic blood pressure 60 mm[Hg] Ellen Kuns Other [employer] Other 05-19-2023 15:15-0400 Respiratory rate 18 /min Ellen Kuns Other [employer] Other 05-19-2023 15:15-0400 SaO2% (BldA) [Mass fraction] 98 % Ellen Kuns Other [employer] Other 05-19-2023 15:15-0400 Systolic blood pressure 80 mm[Hg] Ellen Kuns Other [place] [employer] Other 03-20-2023 09:06-0400 Blood Pressure Location Fidelmunir IBARRA [facility] 03-20-2023 09:06-0400 Diastolic blood pressure 78 mm[Hg] Fidel IBARRA [facility] 03-20-2023 09:06-0400 Heart rate 70 /min Fidel IBARRA [facility] 03-20-2023 09:06-0400 Respiratory rate 16 /min Fidel IBARRA [facility] 03-20-2023 09:06-0400 Systolic blood pressure 132 mm[Hg] Fidel IBARRA [facility] 02-20-2023 09:33-0400 Blood Pressure Location Fidel IBARRA [facility] 02-20-2023 09:33-0400 Diastolic blood pressure 78 mm[Hg] Fidel IBARRA [facility] 02-20-2023 09:33-0400 Heart rate 68 /min Fidel IBARRA [facility] 02-20-2023 09:33-0400 Respiratory rate 16 /min Fidel IBARRA [facility] 02-20-2023 09:33-0400 Systolic blood pressure 130 mm[Hg] Fidel IBARRA [facility] 01-30-2023 11:54-0400 Blood Pressure Location Fidel IBARRA [facility] 01-30-2023 11:54-0400 Diastolic blood pressure 72 mm[Hg] Fidel IBARRA [facility] 01-30-2023 11:54-0400 Heart rate 68 /min Fidel IBARRA [facility] 01-30-2023 11:54-0400 Respiratory rate 16 /min Fidel IBARRA [facility] 01-30-2023 11:54-0400 Systolic blood pressure 99 mm[Hg] Fidel IBARRA [facility] 11-11-2022 15:00-0500 Body height 180.34 cm [employer] Other [employer] Other 11-11-2022 15:00-0500 Body mass index (BMI) [Ratio] 28.59 kg/m2 EllenAcucar Guaranidavion Other [employer] Other 11-11-2022 15:00-0500 Body temperature 95.6 [degF] Ellen Kuns Other [employer] Other 11-11-2022 15:00-0500 Body weight 92.99 kg Ellen Kuns Other [employer] Other 11-11-2022 15:00-0500 Diastolic blood pressure 56 mm[Hg] Ellen Kuns Other [employer] Other 11-11-2022 15:00-0500 Respiratory rate 18 /min Ellen Kuns Other [employer] Other 11-11-2022 15:00-0500 SaO2% (BldA) [Mass fraction] 99 % Ellen Kuns Other [employer] Other 11-11-2022 15:00-0500 Systolic blood pressure 80 mm[Hg] Ellen Kuns Other [employer] Other 09-02-2022 14:45-0500 Body height 180.34 cm Ellen Kuns Other [employer] Other 09-02-2022 14:45-0500 Body mass index (BMI) [Ratio] 27.19 kg/m2 Ellen Kuns Other [employer] Other 09-02-2022 14:45-0500 Body weight 88.45 kg Ellen Kuns Other [employer] Other 09-02-2022 14:45-0500 Diastolic blood pressure 60 mm[Hg] Ellen Kuns Other [employer] Other 09-02-2022 14:45-0500 Respiratory rate 18 /min Ellen Crabtree Other [employer] Other 09-02-2022 14:45-0500 SaO2% (BldA) [Mass fraction] 92 % Elleneliane Bordens Other [employer] Other 09-02-2022 14:45-0500 Systolic blood pressure 92 mm[Hg] Ellen Michis Other [employer] Other 02-18-2022 09:29-0400 Diastolic blood pressure 55 mm[Hg] Frank Reddy MD Work Phone: [employer] 02-18-2022 09:29-0400 Systolic blood pressure 105 mm[Hg] Frank Reddy MD Work Phone: [employer] 02-18-2022 08:30-0400 Body temperature 97.9 [degF] Frank Reddy MD Work Phone: [employer] 02-18-2022 08:30-0400 Heart rate 75 /min Frank Reddy MD Work Phone: [employer] 02-18-2022 08:30-0400 Respiratory rate 18 /min Frank Reddy MD Work Phone: [employer] 02-18-2022 08:30-0400 SaO2% (BldA) [Mass fraction] 97 % Frank Reddy MD Work Phone: [employer] 02-09-2022 05:15-0400 Body mass index (BMI) [Ratio] 34.44 kg/m2 Frank Reddy MD Work Phone: [employer] 02-09-2022 05:15-0400 Body weight 108.86 kg Frank Reddy MD Work Phone: [employer] 02-07-2022 09:09-0400 Body height 177.8 cm Frank Reddy MD Work Phone: [employer] 01-27-2022 10:15-0400 Body height 180.34 cm Ellen Kuns Other [employer] Other 01-27-2022 10:15-0400 Body mass index (BMI) [Ratio] 29.15 kg/m2 Ellen Kuns Other [employer] Other 01-27-2022 10:15-0400 Body weight 94.8 kg Ellen Kuns Other [employer] Other 01-27-2022 10:15-0400 Diastolic blood pressure 70 mm[Hg] Ellen Kuns Other [employer] Other 01-27-2022 10:15-0400 Respiratory rate 18 /min Ellen Kuns Other [employer] Other 01-27-2022 10:15-0400 SaO2% (BldA) [Mass fraction] 98 % Ellen Kuns Other [employer] Other 01-27-2022 10:15-0400 Systolic blood pressure 98 mm[Hg] Ellen Kuns Other [employer] Other 12-05-2021 15:00-0500 Body height 180.34 cm Ellen Kuns Other [employer] Other 12-05-2021 15:00-0500 Body mass index (BMI) [Ratio] 29.43 kg/m2 Ellen Kuns Other [employer] Other 12-05-2021 15:00-0500 Body weight 95.71 kg Ellen Crabtree Other [employer] Other 12-05-2021 15:00-0500 Diastolic blood pressure 70 mm[Hg] Ellen Michis Other [employer] Other 12-05-2021 15:00-0500 Respiratory rate 18 /min Elleneliane Bordens Other [employer] Other 12-05-2021 15:00-0500 SaO2% (BldA) [Mass fraction] 99 % Elleneliane Bordens Other [employer] Other 12-05-2021 15:00-0500 Systolic blood pressure 106 mm[Hg] Ellen Bordens Other [employer] Other 12-03-2021 16:32-0500 Body height 177.8 cm [employer] 12-03-2021 16:32-0500 Body mass index (BMI) [Ratio] 30.42 kg/m2 [employer] 12-03-2021 16:32-0500 Body surface area Derived from formula 2.18 m2 [employer] 12-03-2021 16:32-0500 Body weight 96.16 kg [employer] 12-03-2021 16:32-0500 Diastolic blood pressure 62 mm[Hg] [employer] 12-03-2021 16:32-0500 Heart rate 80 /min [employer] 12-03-2021 16:32-0500 Systolic blood pressure 102 mm[Hg] [employer] 11-19-2021 14:44-0500 Body height 177.8 cm [employer] 11-19-2021 14:44-0500 Body mass index (BMI) [Ratio] 31.18 kg/m2 [employer] 11-19-2021 14:44-0500 Body surface area Derived from formula 2.21 m2 [employer] 11-19-2021 14:44-0500 Body weight 98.57 kg [employer] 11-19-2021 14:44-0500 Diastolic blood pressure 70 mm[Hg] [employer] 11-19-2021 14:44-0500 Heart rate 64 /min [employer] 11-19-2021 14:44-0500 Systolic blood pressure 110 mm[Hg] [employer] 09-05-2021 12:00-0500 58 1 Ellen Crabtree Work Phone: [address] Work Phone: Comment on above: [id number] 08-27-2021 11:30-0500 Body height 180.34 cm Ellen Crabtree Other [employer] Other 08-27-2021 11:30-0500 Body mass index (BMI) [Ratio] 31.24 kg/m2 Ellen Crabtree Other [employer] Other 08-27-2021 11:30-0500 Body weight 101.61 kg Ellen Kuns Other [employer] Other 08-27-2021 11:30-0500 Diastolic blood pressure 68 mm[Hg] Ellen Kuns Other [place] [employer] Other 08-27-2021 11:30-0500 Respiratory rate 18 /min Ellen Kuns Other [employer] Other 08-27-2021 11:30-0500 SaO2% (BldA) [Mass fraction] 98 % Ellen Kuns Other [place] [employer] Other 08-27-2021 11:30-0500 Systolic blood pressure 98 mm[Hg] Ellen Kuns Other [place] [employer] Other 08-16-2021 14:23-0400 Diastolic blood pressure 68 mm[Hg] Ellen R Kuns Work Phone: [facility] [employer] 250 DO Work Phone: 08-16-2021 14:23-0400 Systolic blood pressure 90 mm[Hg] Ellen R Kuns Work Phone: [facility] [employer] 250 DO Work Phone: 08-16-2021 14:21-0400 Body height 177.8 cm Ellen R Kuns Work Phone: [facility] [employer] 250 DO Work Phone: 08-16-2021 14:21-0400 Body mass index (BMI) [Ratio] 32.14 kg/m2 Ellen R Kuns Work Phone: [facility] [employer] 250 DO Work Phone: 08-16-2021 14:21-0400 Body surface area Derived from formula 2.19 m2 Ellen Crabtree Work Phone: [facility] 250 DO Work Phone: 08-16-2021 14:21-0400 Body weight 101.61 kg Ellen R Michis Work Phone: [facility] 250 DO Work Phone: 08-16-2021 14:21-0400 Diastolic blood pressure 68 mm[Hg] Ellen R Mcihis Work Phone: [facility] 250 DO Work Phone: 08-16-2021 14:21-0400 Heart rate 72 /min Ellen Arin Crabtree Work Phone: [facility] 250 DO Work Phone: 08-16-2021 14:21-0400 Systolic blood pressure 90 mm[Hg] Ellen R Leyda Work Phone: [facility] 250 DO Work Phone: Encounters Encounter Date Encounter Type Care Provider Facility Start: 04-05-2024 End: 04-05-2024 Lab Drop off Pippa X Orzech [facility] Start: 04-05-2024 End: 04-05-2024 ambulatory Pippa X Orzech [facility] Start: 04-05-2024 End: 04-05-2024 Patient encounter procedure Pippa X Orzech [facility] Start: 03-17-2024 ambulatory HEIDY MARIN [facility] Start: 03-16-2024 [facility] Start: 03-15-2024 End: 03-15-2024 ambulatory Pippa X Orzech Facility:[facility] Start: 03-15-2024 End: 03-15-2024 Patient encounter procedure Pippa Duncan [facility] Start: 02-23-2024 End: 02-23-2024 ambulatory Fidel IBARRA Facility[facility] Start: 02-23-2024 End: 02-23-2024 Lab Drop off Fidel IBARRA [facility] Start: 02-22-2024 End: 02-22-2024 ambulatory Fidel IBARRA Facility:[facility] Start: 02-22-2024 End: 02-22-2024 Patient encounter [facility] Start: 02-11-2024 Non-patient / Non-visit DO Barbie tt Kuns Work Phone: [facility] Work Phone: Start: 02-11-2024 End: 02-11-2024 Admission to same day surgery center DO Ellen Kuns Work Phone: [facility] Work Phone: Start: 02-11-2024 End: 02-11-2024 ambulatory DO Ellen Kuns Work Phone: [facility] Work Phone: Start: 02-10-2024 End: 02-10-2024 ambulatory [facility] Work Phone: Start: 02-10-2024 End: 02-10-2024 Patient encounter procedure [facility]ly [facility] [place] Work Phone: Start: 02-01-2024 End: 02-01-2024 ambulatory Fidel IBARRA Facility:[facility] Start: 02-01-2024 End: 02-01-2024 Patient encounter procedure Fidel IBARRA [facility] Start: 01-28-2024 End: 01-28-2024 ambulatory [facility] Start: 01-22-2024 End: 01-22-2024 ambulatory [facility] Work Phone: Start: 01-22-2024 End: 01-22-2024 Patient encounter procedure [facility] Work Phone: Start: 01-12-2024 Telephone encounter [facility] Start: 01-11-2024 End: 01-11-2024 ambulatory Fidel IBARRA Facility:[facility] [place] Start: 01-11-2024 End: 01-11-2024 Patient encounter procedure Fidel IBARRA [facility] Start: 01-08-2024 Telephone encounter [facility] Start: 01-06-2024 Non-patient / Non-visit [facility] Work Phone: Start: 12-14-2023 End: 12-14-2023 ambulatory Fidel IBARRA Facility:[facility] [place] Start: 12-11-2023 Refill Fidelia nicole [facility] Comment on above: Orthostasis Start: 11-17-2023 Telephone encounter Ellen PILLAI [facility] [place] Start: 11-17-2023 End: 11-17-2023 ambulatory Fidel IBARRA [facility] Other Start: 11-17-2023 End: 11-17-2023 Patient encounter procedure Fidel IBARRA [facility] Start: 11-16-2023 End: 11-16-2023 Office outpatient visit 40 minutes Loree Linda LEAD DENTAL ASSISTANT-NUCLEAR ENGINEER Work Phone: [facility] Comment on above: Parkinson's disease without dyskinesia or fluctuating manifestations (Primary Dx); Spinal stenosis of lumbar region with neurogenic claudication; Anxiety Start: 11-16-2023 End: 11-16-2023 ambulatory LOREE LINDA [facility] Start: 11-14-2023 Refill Andrés amezquita MD Work Phone: [facility] Comment on above: Parkinson's disease Start: 11-10-2023 End: 11-10-2023 ambulatory Elleneliane Bordens Other [facility] Other Start: 11-10-2023 Office outpatient vi sit 25 minutes Ellen [facility] Start: 11-10-2023 End: 11-10-2023 Patient encounter procedure [facility]- Start: 11-09-2023 End: 11-09-2023 Refill Andrés Bowden MD Work Phone: [facility] Comment on above: Parkinson's disease Start: 11-09-2023 Telephone encounter Elleneliane Bordens [facility] [place] Start: 10-21-2023 End: 10-21-2023 Lab Drop off Fidel IBARRA [facility] Start: 10-21-2023 End: 10-21-2023 ambulatory Fidel IBARRA [facility] Start: 10-05-2023 End: 10-05-2023 ambulatory Ellen Michis Other [facility] Other Start: 10-05-2023 Telephone encounter Ellen Kuns [facility] [place] Start: 09-22-2023 End: 09-22-2023 ambulatory Ellen Kuns Other [facility] Other Start: 09-22-2023 Telephone encounter Ellen Kuns [facility] [place] Start: 09-16-2023 End: 09-16-2023 ambulatory Ellen Kuns Other [facility] Other Start: 09-16-2023 Telephone encounter Ellen Kuns [facility] Start: 09-15-2023 Telephone encounter Ellen Kuns [facility] Start: 09-15-2023 End: 09-15-2023 ambulatory Fidel IBARRA [facility] Other Start: 09-15-2023 End: 09-15-2023 Patient encounter procedure Fidel IBARRA [facility] Start: 09-02-2023 End: 09-02-2023 ambulatory Ellen Kuns Other [facility] Other Start: 09-02-2023 Office outpatient vi sit 25 minutes Ellen Kuns [facility] Start: 08-25-2023 End: 08-25-2023 ambulatory Ellen Kuns Other [facility] Other Start: 08-25-2023 Telephone encounter Ellen Kuns [facility] Start: 08-14-2023 End: 08-14-2023 ambulatory Fidel IBARRA Facility:[facility] [place] Start: 08-14-2023 End: 08-14-2023 Patient encounter procedure Fidel IBARRA [facility] Start: 07-17-2023 End: 07-17-2023 ambulatory Fidel IBARRA [facility] Start: 07-17-2023 End: 07-17-2023 Lab Drop off Fidel IBARRA [facility] Start: 07-17-2023 End: 07-17-2023 ambulatory Fidel IBARRA Facility:[facility] [place] Start: 07-17-2023 End: 07-17-2023 Patient encounter procedure Fidel R IBARRA [facility] Start: 07-03-2023 End: 07-03-2023 ambulatory Ellen Kuns Other [facility] Other Start: 07-03-2023 Telephone encounter Ellen Kuns [facility] Start: 07-01-2023 End: 07-01-2023 ambulatory Fidel Arin WALTER Facility[facility] Start: 06-19-2023 End: 06-19-2023 ambulatory Fidel Arin WALTER Facility[facility] Start: 06-19-2023 End: 06-19-2023 Lab Drop off Fidel R WALTER [facility] Start: 06-19-2023 End: 06-19-2023 ambulatory Fidel Arin IBARRA Facility:[facility] Start: 06-19-2023 End: 06-19-2023 Patient encounter procedure Fidel Hinkle IBARRA [facility] Start: 06-16-2023 End: 06-16-2023 ambulatory Ellen Kuns Other [facility] Other Start: 06-16-2023 Telephone encounter [facility] Start: 06-11-2023 End: 06-11-2023 ambulatory Ellen Kuns Other [employer] Other Start: 06-11-2023 Telephone encounter Ellen Kuns [facility] [place] Start: 05-26-2023 End: 05-26-2023 ambulatory Ellen Kuns Other [employer] Other Start: 05-26-2023 Telephone encounter Ellen Crabtree [facility] [place] Start: 05-25-2023 End: 05-25-2023 Lab Drop off Fidel IBARRA [facility] Start: 05-25-2023 End: 05-25-2023 ambulatory Fidel IBARRA Facility[facility] Start: 05-25-2023 End: 05-25-2023 Patient encounter procedure Fdiel IBARRA [facility] Start: 05-19-2023 End: 05-19-2023 ambulatory Ellen Crabtree Other [facility] Other Start: 05-19-2023 Office outpatient vi sit 25 minutes Ellen Crabtree [facility] [place] Start: 04-27-2023 Telephone encounter Ellen Crabtree [facility] [place] Start: 04-27-2023 End: 04-27-2023 ambulatory Fidel IBARRA [facility] Other Start: 04-27-2023 End: 04-27-2023 Patient encounter procedure Fidel IBARRA [facility] Start: 04-16-2023 End: 04-16-2023 ambulatory Ellen Crabtree Other [employer] Other Start: 04-16-2023 Telephone encounter Ellen Crabtree [facility] [place] Start: 03-20-2023 End: 03-20-2023 Patient encounter procedure Fidel IBARRA [facility] Start: 03-20-2023 End: 03-20-2023 Patient encounter procedure Fidel IBARRA [facility] Start: 03-19-2023 End: 03-19-2023 ambulatory Ellen Kuns Other [employer] Other Start: 03-19-2023 Telephone encounter Ellen Kuns [facility] [place] Start: 02-20-2023 End: 02-20-2023 Patient encounter procedure Fidel IBARRA [facility] Start: 02-17-2023 End: 02-17-2023 ambulatory Ellen Kuns Other [employer] Other Start: 02-17-2023 Telephone encounter [facility]uns [facility] Start: 02-16-2023 End: 02-16-2023 ambulatory Ellen Kuns Other [facility] Other Start: 02-16-2023 Telephone encounter Ellen Kuns [facility] [place] Start: 02-11-2023 End: 02-11-2023 ambulatory Lelen Kuns Other [employer] Other Start: 02-11-2023 Telephone encounter Ellen Kuns [facility] Start: 01-30-2023 End: 01-30-2023 Patient encounter procedure Fidel IBARRA [facility] Start: 01-24-2023 Encounter for preprocedural cardiovascular examination DR FIDLE IBARRA . [facility] Start: 01-24-2023 Encounter for preprocedural laboratory examination DR FIDEL IBARRA . [facility] Start: 01-22-2023 End: 01-22-[address] FIDEL IBARRA . Facility: Start: 01-20-2023 End: 01-21-[address] FIDEL IBARRA . Facility:[facility] Start: 01-20-2023 End: 01-21-2023 Encounter for preprocedural cardiovascular examination DR FIDEL IBARRA . Facility:[facility] Start: 01-14-2023 End: 01-14-2023 ambulatory Ellen Crabtree Other [facility] Other Start: 01-14-2023 Telephone encounter Ellen Michis [facility] Start: 12-24-2022 End: 12-24-2022 Unlisted evaluation and management service Say Reyes APRN.NUCLEAR ENGINEER Work Phone: Urology Comment on above: NO SHOW (Primary Dx) Start: 12-18-2022 End: 12-18-2022 ambulatory MICHELL CRABTREE . Facility:[facility] Start: 12-08-2022 End: 12-08-2022 ambulatory Elleneliane Bordens Other [facility] Other Start: 12-08-2022 Telephone encounter Ellen Michis [facility] Start: 12-06-2022 ambulatory Zelda Saenz RN NURSE O N CALL Comment on above: Medication Problem Start: 12-01-2022 End: 12-01-2022 Evaluation and management of inpatient KANG LOYA Facility:[facility] Start: 11-20-2022 End: 12-06-2022 Evaluation and management of inpatient ELLEN DARIUS CRABTREE Facility:[facility] Start: 11-19-2022 End: 11-19-2022 ambulatory Ellen Bordens Other [facility] Other Start: 11-19-2022 Telephone encounter Ellen Kuns [facility] Start: 11-17-2022 End: 11-17-2022 ambulatory Ellen Michis Other [employer] Other Start: 11-17-2022 Telephone encounter Ellen Kuns [facility] Start: 11-14-2022 End: 11-14-2022 ambulatory Ellen Kuns Other [facility] Other Start: 11-14-2022 Telephone encounter Ellen Kuns [facility] Start: 11-11-2022 End: 11-11-2022 ambulatory Ellen Kuns Other [employer] Other Start: 11-11-2022 Office outpatient vi sit 25 minutes Ellen Kuns [facility] Start: 11-10-2022 End: 11-10-2022 ambulatory Ellen Kuns Other [employer] Other Start: 11-10-2022 Telephone encounter Ellen Kuns [facility] Start: 11-05-2022 End: 11-09-2022 Evaluation and management of inpatient DR ALTON MANCINI . Facility: Start: 10-08-2022 End: 10-08-[address] DOCTOR TIPTON Facility:[facility] Start: 09-04-2022 End: 09-04-2022 ambulatory Ellen Kuns Other [facility] Other Start: 09-04-2022 Telephone encounter Ellen Kuns [facility] Start: 09-02-2022 End: 09-02-2022 ambulatory Ellen Kuns Other [employer] Other Start: 09-02-2022 Office outpatient vi sit 25 minutes Ellen Kuns [facility] Start: 08-29-2022 End: 08-29-2022 ambulatory Ellen Kuns Other [facility] Other Start: 08-29-2022 Telephone encounter Ellen Kuns [facility] Start: 08-28-2022 End: 08-28-2022 ambulatory Ellen Kuns Other [employer] Other Start: 08-28-2022 Telephone encounter Ellen Kuns [facility] [place] Start: 06-17-2022 End: 06-17-2022 ambulatory Ellen Kuns Other [employer] Other Start: 06-17-2022 Telephone encounter Ellen Kuns [facility] [place] Start: 05-21-2022 End: 05-21-2022 ambulatory Ellen Kuns Other [employer] Other Start: 05-21-2022 Telephone encounter [facility]uns [facility] Start: 04-08-2022 End: 04-08-2022 ambulatory Ellen Kuns Other [employer] Other Start: 04-08-2022 Telephone encounter Ellen Kuns [facility] Start: 04-03-2022 Telephone encounter Ellen Shell ns Work Phone: [facility] [address] DO Work Phone: Start: 03-25-2022 End: 03-25-2022 ambulatory Ellen Kuns Other [employer] Other Start: 03-25-2022 Telephone encounter Ellen Kuns [facility] Start: 03-18-2022 End: 03-18-2022 ambulatory Ellen Kuns Other [employer] Other Start: 03-18-2022 Telephone encounter Ellen Kuns [facility] Start: 03-10-2022 End: 03-10-2022 ambulatory Ellen Kuns Other [employer] Other Start: 03-10-2022 Telephone encounter Ellen Kuns [facility] Start: 02-07-2022 End: 02-18-2022 Evaluation and management of inpatient [facility] Start: 02-07-2022 End: 02-18-2022 Evaluation and management of inpatient Frank Reddy MD Work Phone: [facility] Orthopedics 7K Comment on above: Lumbar stenosis with neurogenic claudication (Primary Dx) Start: 01-27-2022 End: 01-27-2022 ambulatory Elleneliane Crabtree Other [employer] Other Start: 01-27-2022 Encounter for other preprocedural examination Elleneliane Bordens [facility] Start: 01-27-2022 Office outpatient vi sit 25 minutes Ellen Michis [facility] Start: 01-27-2022 Pre-procedure evalua tion check Ellen Crabtree Other [employer] Other Start: 01-23-2022 End: 01-24-2022 ambulatory [facility] Start: 01-23-2022 End: 01-28-2022 ambulatory SELVON F [facility] Start: 01-20-2022 End: 01-20-2022 ambulatory Elleneliane Bordens Other [employer] Other Start: 01-20-2022 Telephone encounter Ellen Bordens [facility] Start: 01-13-2022 End: 01-13-2022 ambulatory Elleneliane Bordens Other [employer] Other Start: 01-13-2022 Telephone encounter Elleneliane Bordens [facility] Start: 12-05-2021 End: 12-05-2021 ambulatory Elleneliane Bordens Other [employer] Other Start: 12-05-2021 Office outpatient vi sit 25 minutes Ellen Michis [facility] Start: 12-03-2021 Split Srvc Lashon Barragan rne Other [facility] Office Start: 11-19-2021 Split Srvc Lashon G Yung rne Other [facility] Office Start: 11-11-2021 Telephone encounter Phani Henderson MD Work Phone: Pain Management Comment on above: Post Op Start: 10-23-2021 End: 10-23-2021 ambulatory Ellen Kuns Other [employer] Other Start: 10-23-2021 Telephone encounter Ellen Kuns [facility] [place] Start: 10-07-2021 End: 10-07-2021 ambulatory Ellen Kuns Other [employer] Other Start: 10-07-2021 Telephone encounter [facility]uns [facility] Start: 09-30-2021 End: 09-30-2021 ambulatory Ellen Kuns Other [employer] Other Start: 09-30-2021 Telephone encounter Ellen Kuns [facility] Start: 09-27-2021 End: 09-27-2021 ambulatory Yifan Gama Other [employer] Other Start: 09-27-2021 Telephone encounter Yifan Gama [facility] Gastroenterology Start: 09-08-2021 Chart Update Ellen R Kuns Work Phone: [facility] [address] [place] Work Phone: Start: 09-05-2021 Patient encounter procedure Ellen R Kuns Work Phone: [facility] [address] [place] Work Phone: Start: 09-03-2021 End: 09-03-2021 ambulatory Ellen Kuns Other [employer] Other Start: 09-03-2021 Telephone encounter Ellen [facility]uns [facility] Start: 08-27-2021 End: 08-27-2021 ambulatory Ellen Michis Other [facility] Other Start: 08-27-2021 Office outpatient vi sit 25 minutes Ellen Kuns [facility] Start: 08-21-2021 End: 08-21-2021 ambulatory Ellen Kuns Other [facility] Other Start: 08-21-2021 Telephone encounter Ellen Michis [facility] Start: 08-16-2021 Office consultation new/estab patient 80 min Ellen R Kuns Work Phone: [facility] [employer] [address] [place] Work Phone: Start: 08-16-2021 Patient encounter procedure Ellen R Kuns Work Phone: [facility] [employer] [address] DO Work Phone: Start: 08-16-2021 Telephone encounter Yifan Silver [facility] Start: 08-06-2021 Office outpatient vi sit 15 minutes Ellen Michis [facility] Start: 08-15-2020 End: 08-15-2020 Subsequent hospital visit by physician [facility] Joana Work Phone: Radiology Comment on above: Radiculopathy of lum bar region [M54.16] Start: 06-21-2020 End: 06-21-2020 Subsequent hospital visit by physician Xr [facility] Radiology Comment on above: 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] Start: 06-15-2020 End: 06-15-2020 Subsequent hospital visit by physician [facility] Joana Work Phone: Radiology Comment on above: Pain in thoracic spi ne [M54.6] Start: 12-29-2017 End: 12-31-2017 Evaluation and management of inpatient [facility] Start: 12-07-2017 Ambulatory [facility] Start: 07-01-2017 End: 07-02-2017 Evaluation and management of inpatient [facility] Start: 05-30-2016 End: 06-16-2016 Ambulatory PROVIDER UNKNOWN Facility:[facility] Procedures Date Procedure Procedure Detail Performing Clinician Start: 02-11-2024 Colonoscopy DO Ellen Judy vaughn Work Phone: Start: 01-06-2024 Bacteria identified [...] r-t 2d w/wom-mode compl spec&colr d Bala Rayray Schrader MD Work Phone: Start: 02-10-2022 Gluc [...] 02-09-2022 End: 02-09-2022 Cortisol total Marielena Ramsey LEAD DENTAL ASSISTANT - NUCLEAR ENGINEER Work Phone: Start: 02-09-2022 Gluc bld gluc mntr d ev cleared fda spec home use Frank Reddy MD Work Phone: Start: 02-09-2022 Cortisol total Marcos Jorgensen MD Work Phone: Start: 02-09-2022 Blood count complete auto&auto difrntl wbc Marielena Ramsey LEAD DENTAL ASSISTANT - NUCLEAR ENGINEER Work Phone: Start: 02-09-2022 Gluc bld gluc mntr d ev cleared fda spec home use Frank Reddy MD Work Phone: Start: 02-08-2022 Gluc bld gluc mntr d ev cleared fda spec home use Frank Reddy MD Work Phone: Start: 02-08-2022 Anion gap [Moles/Vol] J coy Ramsey LEAD DENTAL ASSISTANT - NUCLEAR ENGINEER Work Phone: Start: 02-08-2022 End: 02-08-2022 Basic metabolic panel calcium total Marcos Jorgensen MD Work Phone: Start: 02-08-2022 GLOMERULAR FILTRATIO N RATE, ESTIMATED Marielena Ramsey LEAD DENTAL ASSISTANT - NUCLEAR ENGINEER Work Phone: Start: 02-08-2022 SCAN OF BLOOD SMEAR Ricardo crum Ramsey LEAD DENTAL ASSISTANT - NUCLEAR ENGINEER Work Phone: Start: 02-08-2022 Gluc bld gluc mntr d ev cleared fda spec home use Frank Reddy MD Work Phone: Start: 02-08-2022 Gluc bld gluc mntr d ev cleared fda spec home use Frank Reddy MD Work Phone: Start: 02-08-2022 Radiologic exam ches t single view Marielena Ramsey LEAD DENTAL ASSISTANT - NUCLEAR ENGINEER Work Phone: Start: 02-08-2022 Blood count hemoglobin Marielena Ramsey LEAD DENTAL ASSISTANT - NUCLEAR ENGINEER Work Phone: Start: 02-08-2022 Ecg routine ecg w/le ast 12 lds i&r only Marielena Ramsey LEAD DENTAL ASSISTANT - NUCLEAR ENGINEER Work Phone: Start: 02-08-2022 Gluc bld gluc [...] Work Phone: Comment on above: Performed at [facility] [address] [place] [address] Start: 02-07-2022 Gluc bld gluc mntr d [...] Ct thoracic spine w/ o contrast material Oumoudarrell Mcqueen LEAD DENTAL ASSISTANT.NUCLEAR ENGINEER Work Phone: Start: 04-24-2020 Antibody screen Start: 10-18-2019 Antibody screen Start: 03-08-2019 Procedure on prostate P magali IBARRA Start: 03-08-2019 Transurethral prostatectomy Fidel IBARRA Start: 01-25-2019 Injection of therape utic substance into bladder wall Fidel IBARRA Start: 10-19-2018 Total colonoscopy Ellen R Leyda Work Phone: Start: 02-08-2018 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 Phani Henderson MD Work Phone: Start: 01-26-2018 Transurethral insert ion of prostatic urethral lift implant Fidel IBARRA Start: 12-01-2017 Cystoscopy Fidel JEWEL STILL Start: 10-28-2017 Urodynamic studies Patr kenney IBARRA Start: 08-11-2016 Colonoscopy Phani daniels MD Work Phone: Arthroplasty of knee Ellen R Michis Work Phone: Comment on above: x 3; [...] neck; Prosthetic arthropla sty of shoulder Ellen Crabtree Work Phone: Comment on above: left; Prosthetic arthropla sty of the hip Ellen Crabtree Work Phone: Comment on above: bilateral; Repair of musculoten dinous cuff of shoulder Ellen Crabtree Work Phone: Comment on above: x 2 right; Shoulder region stru cture (body structure) Fidel IBARRA Tonsillectomy Fidel IBARRA Plan of Treatment Date Care Activity Detail Author Start: 11-15-2028 DTaP,Tdap and Td Vaccines (3 - Td or Tdap) DTaP,Tdap and Td Vaccines (3 - Td or Tdap) [facility] Start: 11-15-2028 DTaP/Tdap/Td vaccine (3 - Td or Tdap) DTaP/Tdap/Td vaccine (3 - Td or Tdap) [facility] Start: 11-15-2028 Urine microalbumin profile DTAP,TDAP,TD (3 - Td or Tdap) [facility] Start: 08-11-2026 Colonoscopy COLONOSCOPY [facility] Start: 08-11-2026 COLORECTAL CANCER SCREENING COLORECTAL CANCER SCREENING [facility] Start: 01-23-2025 Diabetes screen Diabetes screen [facility] Start: 11-16-2024 Depression Screening Depression Scre ening [facility] Start: 11-16-2024 Tobacco Screening Tobacco Screening [facility] Start: 07-02-2024 Adult BMI Screening Adult [facility] Screen [facility] Start: 07-02-2024 Tobacco Screening Tobacco Screening [facility] Start: 04-26-2024 ambulatory Ambulatory Facility:Skyla Sandoval Start: 02-11-2024 [facility] Start: 01-28-2024 End: 01-28-2024 Patient encounter procedure 01/28/2024 9:20 AM EDT [facility] [address] [place] [address] Heidy Marin MD [address] [place] [address] [facility] Start: 01-14-2024 End: 01-14-2024 Patient encounter procedure 01/14/2024 9:50 AM EDT Office Visit [facility] [address] [place] [address] Sergio Anguiano MD [address], [address] [address] [facility] Start: 11-29-2023 Hepatitis B surface antibody level LDL CHOLESTEROL [facility] Start: 11-16-2023 End: 11-16-2023 Patient encounter procedure 11/16/2023 1:00 PM EST Office Visit [facility] [address] [place] [id number] Loree Linda, LEAD DENTAL ASSISTANT-NUCLEAR ENGINEER [address] [place] [address] [facility] Start: 2023 Fall Risk Screening Fall Risk Screen ing [facility] Start: 2023 PNEUMOCOCCAL (3 - PP SV23 if available, else PCV20) PNEUMOCOCCAL (3 - PPSV23 if available, else PCV20) [facility] Start: 2023 PNEUMOCOCCAL (3 - PP SV23 or PCV20) PNEUMOCOCCAL (3 - PPSV23 or PCV20) [facility] Start: 2023 Pneumococcal 0-64 ye ars Vaccine (3 - PPSV23 or PCV20) Pneumococcal 0-64 years Vaccine (3 - PPSV23 or PCV20) [facility] Start: 08-11-2023 Adult BMI Follow Up Plan Adult BMI Follow Up Plan [facility] Start: 08-11-2023 [facility] Start: 06-19-2023 COVID-19 Vaccine ( season) COVID-19 Vaccine ( season) [facility] Start: 06-19-2023 Influenza vaccination [facility] Start: 10-19-2022 DEPRESSION ASSESSMENT DEPRESSION ASS ESSMENT [facility] Start: 01-01-2022 COVID-19 VACCINE (5 - Booster for Moderna series) COVID-19 VACCINE (5 - Booster for Moderna series) [facility] Start: 01-01-2022 COVID-19 VACCINE (6 - Moderna series) COVID-19 VACCINE (6 - Moderna series) [facility] Start: 10-25-2021 Adult depression screening assessment DEPRESSION SCREENING [facility] Start: 10-24-2021 FUV, Provider: Ren Watson, Status: Pen, Time: 10:10 AM FUV, Provider: Ren Watson, Status: Pen, Time: 10:10 AM [facility] [address] [place] Work Phone: Start: 09-05-2021 STRESS NUC, Provider : BRIGITTE [facility]VI NUCLEAR 01,[id number], Status: Pen, Time: 12:00 PM STRESS NUC, Provider: BRIGITTE [facility] NUCLEAR 01,[id number], Status: Pen, Time: 12:00 PM [facility] [address] DO Work Phone: Start: 10-25-2020 Hemoglobin A1c/Hemoglobin.total in Blood HBA1C [facility] Start: 08-10-2020 ANNUAL PCP TEAM EVAPORATOR HELPER MARYAM DISEASE VISIT ANNUAL PCP TEAM CHRONIC DISEASE VISIT [facility] Start: 03-16-2019 Administration of varicella zoster vaccine Zoster (Shingles) Vaccine (2 of 2) [facility] [facility] Start: 03-16-2019 Shingles vaccine (2 of 2) Shingles vaccine (2 of 2) [facility] Start: 03-16-2019 SHINGRIX VACCINE (2 of 2) SHINGRIX VACCINE (2 of 2) [facility] Start: 04-27-2018 3 comp foot exam completed DIABETIC FOOT EXAM [facility] Start: 2013 Influenza vaccination LUNG CANCER [facility] Start: 2013 PROSTATE CANCER SCREENING DISCUSSION PROSTATE CANCER SCREENING DISCUSSION [facility] Start: 2008 Influenza vaccination LUNG CANCER [facility] Start: 2008 Screening for malign ant neoplasm of lung Low dose CT lung screening [facility] Start: 2003 COLOGUARD (FIT-DNA) COLOGUARD (FIT-D NA) [facility] Start: [address] COLONOGRAPHY [facility] Start: 2003 FECAL OCCULT BLOOD FECAL OCCULT BLOO D [facility] Start: 2003 Screening for malign ant neoplasm of colon [facility] Start: 2003 SIGMOIDOSCOPY SIGMOIDOSCOPY [facility] Start: 1988 Zoledronic acid therapy ALPHA- 1 ANTITRYPSIN DEFICIENCY SCREENING [facility] Start: 1976 BP CONTROLLED (<130/80) BP CONTROLLE D (<130/80) [facility] Start: 1976 Diabetic foot examination Diabetic Foot Exam [facility] Start: 1976 Hepatitis B surface antibody level LDL CHOLESTEROL [facility] Start: 1976 HEPATITIS C SCREENING HEPATITIS C [facility] Start: 1976 Hepatitis C screening Hepatitis C [facility] Start: 1976 HIV SCREENING HIV SCREENING [facility] Start: 1976 SPIROMETRY SPIROMETRY [facility] Start: 1973 HIV screening HIV screen [facility] Start: 1970 Depression Screen Depression Screen [facility] Start: 1968 Hepatitis B screening URINE ALBUMIN:CREATININE RATIO [facility] Start: 1968 Hepatitis C antibody , confirmatory test DILATED RETINAL EXAM [facility] Start: 1968 Lipid panel Lipids [facility] Start: 1958 Annual Wellness Visi t (AWV) Annual Wellness Visit (AWV) [facility] Start: 1958 Glaucoma screening Diabetic Op hthalmology Exam [facility] Start: 1958 Tobacco Counseling Tobacco Counselin g [facility] Comprehensive metabo lic 2000 panel - Serum or Plasma [facility] CT Abdomen and Pelvi s W contrast IV [facility] Glucose [Mass/volume ] in Serum or Plasma [facility] Work Phone: Comment on above: 4X Daily (AC & HS) u ntil discontinued starting 02/11/2022, 27 completed As Needed until disc ontinued starting 02/11/2022 Home BIPAP or CPAP Home BIPAP or CPAP Respiratory Care Routine QHS until discontinued starting 02/16/2022 [employer] Work Phone: Comment on above: QHS until discontinu ed starting 02/16/2022 Oxygen therapy [[facility] Data Set] Initiate Oxygen Therapy Protocol Respiratory Care Routine As Needed until discontinued starting 02/07/2022 [employer] Work Phone: Comment on above: As Needed until disc ontinued starting 02/07/2022 Patient Education Hemorrhoids (DC) [facility] Work Phone: [facility] Immunizations Immunization Date Immunization Notes Care Provider Fa naresh 11-10-2023 influenza, high dose seasonal, preservative-free Ellen Kuns Other [facility] 11-10-2023 influenza virus vaccine, unspecified formulation [facility] 10-21-2022 pneumococcal conjuga te vaccine, 13 valent Fidel IBARRA [facility] 09-18-2022 influenza virus vaccine, unspecified formulation [employer] [facility] 09-02-2022 influenza, injectabl e, quadrivalent, contains preservative Ellen Kuns Other [facility] 09-02-2022 influenza virus vaccine, unspecified formulation Fidel [employer] [facility] 09-02-2022 influenza, injectabl e, quadrivalent, preservative free [facility] 11-06-2021 COVID-19, Moderna, 100mcg/0.5ml Lashon Noris [facility] 10-15-2021 influenza virus vaccine, unspecified formulation Fidel [employer] [facility] 10-15-2021 Influenza, injectabl e, Madin Ninfa Canine Kidney, preservative free, quadrivalent Ellen R Kuns Work Phone: [facility] 10-15-2021 Moderna COVID-19 Vaccine 100 MCG/0.5ML Intramuscular Suspension Ellen R Kuns Work Phone: [facility] 01-30-2021 COVID-19, Moderna, 100mcg/0.5ml [employer] 01-09-2021 COVID-19 Vaccine Moderna - Documentation Purposes Only Ellen Kuns Other [facility] 01-02-2021 COVID-19, Moderna, 100mcg/0.5ml [employer] 12-13-2020 COVID-19 Vaccine Moderna - Documentation Purposes Only Ellen Kuns Other [facility] 07-17-2020 influenza virus vaccine, unspecified formulation Fidel IBARRA [facility] 07-17-2020 influenza, injectabl e, quadrivalent, contains preservative Ellen Kuns Other [facility] 07-17-2020 influenza, injectabl e, quadrivalent, preservative free [facility] 04-12-2020 Toradol per 15 mg Ellen Kuns Other [employer] Other 08-24-2019 influenza virus vaccine, unspecified formulation Fidel IBARRA [facility] 08-24-2019 influenza, high dose seasonal, preservative-free Ellen Kuns Other [facility] 01-19-2019 zoster vaccine recombinant Ellen Kuns Other [facility] 01-19-2019 zoster vaccine, unspecified formulation Andrés Bowden MD Work Phone: [email or web address] 11-15-2018 pneumococcal conjuga te vaccine, 13 valent Phani Henderson MD Work Phone: [facility] 11-15-2018 tetanus toxoid, redu whiteny diphtheria toxoid, and acellular pertussis vaccine, adsorbed Phani Henderson MD Work Phone: [facility] 07-07-2018 influenza virus vaccine, unspecified formulation Fidel [employer]BARRA [facility] 07-07-2018 influenza, injectabl e, quadrivalent, contains preservative Ellen Kuns Other [facility] 07-07-2018 influenza, injectabl e, quadrivalent, preservative free [facility] 05-06-2018 Toradol per 15 mg Ellen Kuns Other [employer] Other 10-03-2017 Toradol per 15 mg Ellen Kuns Other [employer] Other 09-17-2017 Toradol per 15 mg Ellen Kuns Other [employer] Other 07-01-2017 influenza virus vaccine, unspecified formulation Fidel IBARRA [facility] 07-01-2017 influenza, injectabl e, quadrivalent, preservative free Ellen R Kuns Work Phone: [facility] 03-24-2017 Toradol per 15 mg Ellen Kuns Other [employer] Other 01-29-2017 Toradol per 15 mg Ellen Kuns Other [employer] Other 12-25-2016 Toradol per 15 mg Ellen Kuns Other [employer] Other 08-12-2016 influenza virus vaccine, unspecified formulation Fidel IBARRA [facility] 08-12-2016 influenza, high dose seasonal, preservative-free Ellen R Kuns Work Phone: [facility] 08-12-2016 influenza, injectabl e, quadrivalent, preservative free [facility] 08-12-2016 Toradol per 15 mg Ellen Kuns Other [employer] Other 08-12-2016 influenza, injectabl e, quadrivalent, contains preservative Ellen Kuns Other [employer] Other 01-17-2016 Toradol per 15 mg Ellen Kuns Other [employer] Other 10-22-2015 tetanus toxoid, redu whitney diphtheria toxoid, and acellular pertussis vaccine, adsorbed Ellen Kuns Other [facility] 10-22-2015 Toradol per 15 mg Ellen Kuns Other [employer] Other 07-23-2015 influenza virus vaccine, unspecified formulation Fidel IBARRA [facility] 07-23-2015 influenza, injectabl e, quadrivalent, preservative free Ellen R Kuns Work Phone: [facility] 07-23-2015 influenza, injectabl e, quadrivalent, contains preservative Ellen Kuns Other [employer] Other 10-26-2014 influenza, injectabl e, quadrivalent, preservative free [facility] 10-26-2014 Toradol per 15 mg Ellen Kuns Other [employer] Other 10-26-2014 influenza, injectabl e, quadrivalent, contains preservative Ellen Kuns Other [employer] Other 07-11-2014 Toradol per 15 mg Ellen Kuns Other [employer] Other 06-27-2014 Toradol per 15 mg Ellen Kuns Other [employer] Other 04-20-2014 Toradol per 15 mg Ellen Kuns Other [employer] Other 01-18-2013 Toradol per 15 mg Ellne Kuns Other [employer] Other 09-15-2012 influenza virus vaccine, split virus (incl. purified surface antigen) Ellen Kuns Other [employer] Other 09-15-2012 influenza virus vaccine, unspecified formulation [facility] 07-15-2010 influenza virus vaccine, unspecified formulation Phani Henderson MD Work Phone: [facility] 08-24-2009 novel [id number], preservative-free, injectable Ellen R Kuns Work Phone: [facility] 08-16-2002 hepatitis B vaccine, adult dosage Ellen R Kuns Work Phone: [facility] 01-27-2002 hepatitis B vaccine, adult dosage Ellen R Kuns Work Phone: [facility] 08-13-1995 pneumococcal polysaccharide vaccine, 23 valent Ellen Kuns Other [facility] Payers Date Payer Category Payer Self-pay [id number] 2023 Unknown [id number] 2021 Medicare AETNA MEDICARE A ETNA MEDICARE O [id number] 2021-Present [phone] [facility] [id number] [place] [address] O [id number] [id number] 2019 Medicare [id number]. 1.13.159.2.7.3.6 [id number] 2004 Unknown 1959 Medicare [id number] 2.16.840.1.560058.3.441 1959 Medicare [id number] 1959 Unknown [id number] 1958 Unknown [id number] 2.16.840.1.712077.3.579.2.93 1958 Unknown [id number] 2.16.840.1.081870.3.579.2.93 1958 Unknown [id number] 2.16.840.1.202386.3.579.2.93 1958 Unknown [id number] 2.16.840.1.662469.3.579.2.593 1958 Unknown [id number] 2.16.840.1.237748.3.579.2.593 1958 Unknown [id number] 2.16.840.1.333223.3.579.2.593 1958 Unknown [id number] 2.16.840.1.410047.3.579.2.593 1958 Unknown [id number] 2.16.840.1.996012.3.579.2.593 1958 Unknown [id number] 2.16.840.1.330398.3.579.2.1286 1958 Unknown [id number] 2.16.840.1.866540.3.579.2.1286 1958 Unknown [id number] 2.16.840.1.820515.3.579.2.1286 1958 Unknown [id number] 2.16.840.1.797578.3.579.2.1286 1958 Unknown [id number] 2.16.840.1.006119.3.579.2.1286 1958 Unknown [id number] 2.16.840.1.843422.3.579.2.72 1958 Unknown [id number] 2.16.840.1.632399.3.579.2. 1958 Unknown [id number] 2.16.840.1.715300.3.579.2.72 1958 Unknown [id number] 2.16.840.1.899604.3.579.2.72 1958 Unknown [id number] 2.16.840.1.494217.3.579.2.72 1958 Unknown [id number] 2.16.840.1.233834.3.579.2.72 1958 Unknown [id number] 2.16.840.1.167959.3.579.2.72 1958 Unknown [id number] 2.16.840.1.454150.3.579.2.72 1958 Unknown [id number] 2.16.840.1.471062.3.579.2.72 1958 Unknown [id number] 2.16.840.1.556734.3.579.2.72 1958 Unknown [id number] 2.16.840.1.734638.3.579.2.72 1958 Unknown [id number] 2.16.840.1.888188.3.579.2.727 1958 Unknown [id number] 2.16.840.1.565333.3.579.2.727 1958 Unknown [id number] 2.16.840.1.703234.3.579.2.727 1958 Unknown [id number] 2.16.840.1.663405.3.579.2.727 1958 Unknown [id number] 2.16.840.1.937858.3.579.2.727 1958 Unknown [id number] 2.16.840.1.694403.3.579.2.727 1958 Unknown [id number] 2.16.840.1.332529.3.579.2.727 1958 Unknown [id number] 2.16.840.1.974759.3.579.2.727 1958 Unknown [id number] 2.16.840.1.858263.3.579.2.727 1958 Unknown [id number] 2.16.840.1.280104.3.579.2.727 1958 Unknown [id number] 2.16.840.1.710775.3.579.2.727 Unknown [id number] 2.16.840.1.653212.3.579.2.531 Social History Date Type Detail Facility Start: 04-15-2017 End: 11-08-2020 No alcohol use No alcohol use [facility] Comment on above: Coffee 3 cups daily; 6 ciggs daily; Start: Smoker [place] [employer] Start: 04-15-2017 End: 02-03-2021 Tobacco smoking status NHIS Smokes tobacco daily [facility] Start: 12-07-1982 History of tobacco use Cigarette Smo ker [facility] Start: 04-15-2017 End: 02-03-2021 Tobacco use and exposure Smokeless tobacco non-user [facility] Start: 05-29-2020 End: 10-10-2021 Alcohol intake Current non-drinker of alcohol (finding) [facility] Start: 05-04-2020 End: 11-25-2022 History SDOH Financial 4 [facility] Start: 05-04-2020 End: 11-25-2022 History SDOH Food Worry 1 [facility] Start: 05-04-2020 End: 11-25-2022 History SDOH Transport Med 2 [facility] Start: 06-21-2020 Tobacco Comment currently 8 ci garettes a day [facility] Start: 1960 Sex Assigned At Not on file [facility] Start: 05-22-2020 End: 02-07-2022 Exposure to SARS-CoV-2 (event) Not sure [facility] Start: 02-09-2022 Alcohol intake Lifetime non-d margarita (finding) [employer] Phone: Start: 05-12-2019 End: 11-08-2020 Sex Assigned At [facility] Start: 01-16-2023 End: 03-15-2024 Tobacco smoking status Ex-smoker (finding) [facility] Tobacco smoking status Never [facility] How hard is it for y ou to pay for the very basics like food, housing, medical care, and heating Not very hard [facility] (I/We) worried wheth er (my/our) food would run out before (I/we) got money to buy more. Never true [facility] Start: 04-24-2020 Tobacco Comment currently 1/2 pack day since 01/2020 [facility] Start: 05-05-2020 End: 06-04-2020 Exposure to SARS-CoV-2 (event) Unable to assess [facility] Start: 07-02-2023 End: 11-16-2023 Alcohol intake Ex-drinker (finding) [facility] Start: 02-03-2021 Tobacco Comment 8 cigs per day [facility] Start: 1960 Sex Assigned At Male F [facility] Medical Equipment Procedure Code Equipment Code Equipment Origin al Text Equipment Identifier Dates Restrictor 24mm Medium [place] Cement Revision Plug Hip - [id number] Start: 04-27-2017 Cement Simplex P Tobramycin Bone Full Dose Radiopaque Preblend Sterile - [id number] Start: 04-27-2017 Restrictor 30mm Large [place] Cement Revision Plug Hip - [id number] Start: 04-27-2017 Cement Simplex P Speedset Bone Radiopaque Sterile - [id number] Start: 12-29-2017 Dkm-Mb-S-Kind Implant - [id number] Start: 06-05-2016 Comment on above: Description: NEVRO C ORP. N300 LEAD ANCHOR KIT Head Global Unit e 52mm Standard 18mm Humeral - [id number] Start: 12-29-2017 Nevro Surgical L ead Kit [id number] Start: 03-16-2018 Head V40 28mm -2 .7mm Offset Taper Biolox Delta Femoral Hip - [id number] Start: 11-08-2019 Liner 46mm F Dylon r Acetabular Modular Dual Mobility Primary Hip - [id number] Start: 11-08-2019 Insert Adm Mobil e Bearing Hip Mosque 52mm 28mm 0d X3 8.9mm Acetabular - [id number] Start: 11-08-2019 Insert Adm Mobil e Bearing Hip Mosque 52mm 28mm 0d X3 8.9mm Acetabular - [id number] Start: 05-03-2020 Head V40 28mm +4 mm Offset Taper Biolox Delta Femoral Hip - [id number] Start: 05-03-2020 Liner 46mm F Dylon r Acetabular Modular Dual Mobility Primary Hip - [id number] Start: 05-03-2020 Stem Triathlon 1 2mm Cocr 100mm Femoral Cemented Total Stabilized Knee - [id number] Start: 04-27-2017 Stem Triathlon 1 5mm Cocr 50mm Femoral Cemented Total Stabilize Knee - [id number] Start: 04-27-2017 Component Triath oscar 7 Cocr Femoral Total Stabilize Knee Left - [id number] Start: 04-27-2017 Augment Triathlo n 7 5mm Femoral Total Stabilize Knee Posterior - [id number] Start: 04-27-2017 Augment Triathlo n 7 5mm Femoral Total Stabilize Knee Left - [id number] Start: 04-27-2017 Augment Triathlo n 7 5mm Femoral Total Stabilize Knee Left - [id number] Start: 04-27-2017 Augment Triathlo n 6 10mm Tibial Total Stabilize Right Medial Left Lateral - [id number] Start: 04-27-2017 Baseplate Triath oscar 6 [place] Cocr Tibial Total Stabilize Cemented Knee - [id number] Start: 04-27-2017 Augment Triathlo n 6 10mm Tibial Total Stabilize Left Medial Right Lateral - [id number] Start: 04-27-2017 Insert Triathlon 6 X3 16mm Tibial Total Stabilize Plus Knee - [id number] Start: 04-27-2017 Component Triath oscar 7 Pa Femoral Cruciate Retain Bead Knee Right - [id number] Start: 07-01-2017 Insert Triathlon 6 X3 13mm Tibial Condylar Stabilized Knee - [id number] Start: 07-01-2017 Baseplate Triath oscar 6 Tritanium [id number] Tibial 4 Cruciform Peg Keel Knee - [id number] Start: 07-01-2017 Component Tritan ium 35mm Metal 10mm Patellar Asymmetric Knee - [id number] Start: 07-01-2017 Component Triath oscar 35mm 10mm Patellar Asymmetric Knee - [id number] Start: 04-27-2017 Head 48mm 7mm Humeral [place] Peg Left Glenoid - [id number] Start: 12-29-2017 Stem Global Ap 1 2mm Porocoat 137mm Humeral Arthroplasty System Shoulder - [id number] Start: 12-29-2017 Assembly Global Ap 135d Taper Fix Shoulder Arthroplasty System - [id number] Start: 12-29-2017 Augment Triath T ib Cone Sz A - [id number] Start: 04-27-2017 Stem Accolade Ii 7 127d Femoral - [id number] Start: 11-08-2019 Shell Trident Ii 56mm F Tritanium Acetabular 5 Screw Hole Cluster Sterile - [id number] Start: 11-08-2019 Stem Accolade Ii 7 127d Femoral - [id number] Start: 05-03-2020 Shell Trident Ii 56mm F Tritanium Acetabular 5 Screw Hole Cluster Sterile - [id number] Start: 05-03-2020 Lead 50cm Nevro - [id number] Start: 05-08-2016 Comment on above: Description: 50 Lead 50cm Nevro - [id number] Start: 06-05-2016 Comment on above: Description: NEVRO B LUE PERC LEAD KIT Lead 50cm Nevro - [id number] Start: 06-05-2016 Comment on above: Description: NEVRO B LUE PERC LEAD KIT Gnrtr Nrstm Ipg Kit Nevro - [id number] Start: 06-05-2016 Comment on above: Description: NEVRO N IPG KIT Screw Spinal Streamline 7.5x55mm - [id number] Start: 02-07-2022 Set Scr Spnl Ti Streamline - [id number] Start: 02-07-2022 Screw Spnl L45mm Dia7.5mm Thorlum Ti Ally Polyax Streamline - [id number] Start: 02-07-2022 Screw Spnl L50mm Dia7.5mm Thorlum Ti Ally Polyax Streamline - [id number] Start: 02-07-2022 Ta Spnl L120mm [id number] Thorlum Prebent Streamline - [id number] Start: 02-07-2022 Ta Spnl L100mm [id number] Thorlum Prebent Streamline - [id number] Start: 02-07-2022 Syringe With Nee dle [...] towards goal: Participating in care and rehab Functional Status Date Assessment Result Facility 03-15-2024 Functional Status N/A [facility] 03-20-2023 Functional Status N/A [facility] 02-20-2023 Functional Status N/A [facility] 01-30-2023 Functional Status N/A [facility] Clinical Notes 06-07-2012 to 03-15-2024 Note [...] include: ?8 oz (237 mL) of milk, vqsgkbh-fdxpqshbclwi-cgorq milk, and calcium-fortifiedfruit juice. Calcium-fortified means that [...] ?Spinach (cooked), rhubarb, beets, sweet potatoes, and Burkinan chard. ?Peanuts. ?Potato chips, venezuelan fries, and baked potatoes with skin on. ?Nuts and nut products. ?Chocolate. If you regularly take a diuretic medicine, make sure to eat at least 1 or 2 servings of fruits or vegetables that are high in potassium each day. These include: ?Avocado. ?Banana. ?[place], prune, carrot, or tomato juice. ?Baked potato. [...] magnesium, fish oil, or vitamin B6. Take rceg-jro-wgyvpup and prescription medicines only as told by [...] Casseroles. Pizza. Lasagna. Frozen meals. Potato chips. Montserratian fries. The items listed above may not [...] provider. Document Revised: 01/15/2023 Document Reviewed: 01/15/2023 [employer] Patient Education 2022 [employer]. 03/15/2024 13:28:17 Antibiotic Medicine, Adult Antibiotic Medicine, [...] medicine. Follow these instructions at home: Take dvqc-esg-rtmencv and prescription medicines as told by your [...] provider. Document Revised: 11/19/2020 Document Reviewed: 07/24/2020 [employer] Patient Education 2022 [employer]. 03/15/2024 13:27:57 Kidney Stones, Eqtc-dz-Rasq Kidney Stones Kidney stones are rock-like masses [...] Follow these instructions at home: Medicines Take aenu-uor-tzdupgp and prescription medicines only as told by [...] Kidney Foundation (NKF): www.kidney.org [facility] ([facility]): www.urologyhealth.org Contact a doctor if: You have [...] provider. Document Revised: 06/09/2022 Document Reviewed: 06/09/2022 [employer] Patient Education 2022 [employer]. 03/15/2024 13:27:55 Benign Prostatic Hyperplasia Benign Prostatic [...] urethra. Follow these instructions at home: Take gumd-ctq-npfkyam and prescription medicines only as told by [...] provider. Document Revised: 04/23/2022 Document Reviewed: 04/23/2022 [employer] Patient Education 2022 [employer]. [facility] 02-11-2024 History and physical note Note Date/Time February 11, 2024 8:20am [facility] [address] [place] [address] Gastroenterology H&P Signed Patient: Alisia Correa SR MR#: [id number] : 1960 Acct:[id number] Age/Sex: 63 / M Adm Date: 4 Loc: Room: Type: [facility] Attending Dr: Bernice Shrestha DO Copies to: DO Bernice Wolf DO~ Date of Service: 02/11/2024 HISTORY & [...] Shrestha DO Documented By: Bernice Shrestha DO 02/11/24818 Signed By: <Electronically signed by Bernice Shrestha DO> 02/11/24819 [facility] Work Phone: 1(524) 567-275404-25-2024 Procedure [facility]03-26-2024 Miscellaneous Notes* Telephone Encounter - Rachel Hurley CMA - 01/12/2024 9:35 AM EDT Received CALL CENTER AGENT Initial Eval from [facility] dated 01/06/24. Will have Kathy review and sign. Will return fax. [facility] Telephone encounter Note* Telephone Encounter - Rachel Mixon CMA - 01/12/2024 9:35 AM EDT Received CALL CENTER AGENT Initial Eval from [facility] dated 01/06/24. Will have Kathy review and sign. Will return fax. [facility]03-26-2024 Miscellaneous Notes* Telephone Encounter - Rachel Mixon CMA - 01/12/2024 9:[address] request to evaluate and treat from [facility] dated 01/08/24. Will have Mollyreview and sign. Will return fax. [facility]24 Telephone encounter Note* Telephone Encounter - Rachel Mixon CMA - 01/12/2024 9:[address] request to evaluate and treat from [facility] dated 01/08/24. Will have Mollyreview and sign. Will return fax. [facility]03-22-2024 Miscellaneous Notes* Telephone Encounter - Rachel Mixon CMA - 01/08/2024 8:17 AM EDT Received PT Initial Eval from [place] Clinic dated 01/06/24 . Will have Kathy review and sign. Will return fax. documented in this encounterRiver[facility] Institute03-22-2024 Telephone encounter Note* Telephone Encounter - Rachel Mixon CMA - 01/08/2024 8:17 AM EDT Received PT Initial Eval from [facility] dated 01/06/24 . Will have Kathy review and sign. Will return fax. [facility]02-23-2024 Miscellaneous Notes* Telephone Encounter - Fidelia Lagunas - 12/11/2023 8:55 AM EST Refill Request Medication:midodrine (PROAMATINE) 5 mg tablet Strength: Current dose & Frequency: 30 day or 90 day supply: Pharmacy:[address] Request was made by:Patients daughter. Caller states patient Is now out of this medication and the pharmacy needs a new script that reflects the changes that was made at last appointment. Patient now takes a total of 9 pills with the change and that's why patient run our early. Please advise * Telephone Encounter - Julianan Barnes - 12/11/2023 8:55 AM EST Refill request : midodrine (PROAMATINE) 5 mg tablet Last filled : 09/02/2023 Last OV : 11/16/2023 Next OV : No follow up mentioned in last ov note. Reviewed by BENEFITS CLERK Pend for signature. documented in this encounterRiverview Health Institute02-23-2024 Telephone encounter Note* Telephone Encounter - Fidelia Lagunas - 12/11/2023 8:55 AM EST Refill Request Medication:midodrine (PROAMATINE) 5 mg tablet Strength: Current dose & Frequency: 30 day or 90 day supply: Pharmacy:[address] Request was made by:Patients daughter. Caller states patient Is now out of this medication and the pharmacy needs a new script that reflects the changes that was made at last appointment. Patient now takes a total of 9 pills with the change and that's why patient run our early. Please advise [facility] [id number] Telephone encounter Note* Telephone Encounter - Julianna Barnes - 12/11/2023 8:55 AM EST Refill request : midodrine (PROAMATINE) 5 mg tablet Last filled : 09/02/2023 Last OV : 11/16/2023 Next OV : No follow up mentioned in last ov note. Reviewed by ANDRE Pend for signature. [facility]Rheti [id number] Evaluation note* Encounter Date Diagnosis Assessment Notes Treatment Notes Treatment Clinical Notes Oct, Arthritis (ICD-10 - M19.90) Oct, Chronic pain syndrome (ICD-10 - G89.4) [facility] Other 01-29-2024 History of Present illness Narrative* Loree Linda APRN-NUCLEAR ENGINEER - 11/16/2023 1:00 PM EST Images from the original note were not included. [address] [facility] [id number] Patient: Alisia Correa Sr. Date of : [...] further dose adjustments He was admitted to [facility]: 11/20/22 to 12/06/22 Mr. Correa, You were [...] Past Medical History: Diagnosis Date Diabetes mellitus ([facility]) Diabetes mellitus type 2, controlled ([facility]) HL (hearing loss) Hypertension Kidney stones Migraine [...] DOSE. TAKE ALONG WITH SINEMET CR. 180 friren83 traMADoL (ULTRAM) 50 mg tablet Take 1 [...] can cause some issues with numbness/tingling. Follow-up: LOREE LINDA APRN-NUCLEAR ENGINEER Loree Linda APRN-NUCLEAR ENGINEER 12/07/23 0817 documented in this [facility]01-29-2024 Instructions* Patient Instructions* REGAN Marcos - 11/16/2023 1:00 PM EST Eliminate 2 [...] some issues with numbness/tingling. documented in this [facility]01-23-2024 Evaluation note* Encounter Date Diagnosis Assessment Notes [...] at this time. This will be monitored [facility] Other 01-22-2024 Evaluation note* Encounter Date Diagnosis Assessment Notes Treatment Notes Treatment Clinical Notes Oct, Arthritis (ICD-10 - M19.90) [facility] Other [id number] Miscellaneous Notes* Telephone Encounter - Julianna Barnes - 11/09/2023 10:42 AM EST Refill request: Sinemet IR 25-100 mg tablet and Sinemet ER 25- 100 mg tablet Aircraft Engine Assembler phoned patient and patient has refills remaining on both medications at pharmacy. Patient voiced understanding. documented in this encounterKing[facility] OhioOrbeus [id number] Telephone encounter Note* Telephone Encounter - Julianna Barnes - 11/09/2023 10:42 AM EST Refill request: Sinemet IR 25-100 mg tablet and Sinemet ER 25- 100 mg tablet Aircraft Engine Assembler phoned patient and patient has refills remaining on both medications at pharmacy. Patient voiced understanding. [facility] Evaluation [facility]* Encounter Date Diagnosis Assessment Notes Treatment Notes Treatment Clinical Notes Sep, Arthritis (ICD-10 - M19.90) [facility] Other 11-29-2023 Evaluation note* Encounter Date Diagnosis Assessment Notes Treatment Notes Treatment Clinical Notes Aug, Anxiety (ICD-10 - F41.9) Aug, Neuropathy (ICD-10 - G62.9) [facility] Other 11-28-2023 Evaluation note* Encounter Date Diagnosis Assessment Notes Treatment Notes Treatment Clinical Notes Aug, Diabetic nephropathy (ICD-10 - E11.21) [facility] Other 11-15-2023 Evaluation note* Encounter Date Diagnosis [...] medrol should help with this as well. [facility] Other 11-07-2023 Evaluation note* Encounter Date Diagnosis Assessment Notes Treatment Notes Treatment Clinical Notes Aug, UTI (urinary tract infection) (ICD-10 - N39.0) Aug, Diarrhea (ICD-10 - R19.7) [facility] Other 09-15-2023 Evaluation note* Encounter Date Diagnosis Assessment Notes Treatment Notes Treatment Clinical Notes Jun, Arthritis (ICD-10 - M19.90) [facility] Other 08-08-2023 Evaluation note* Encounter Date Diagnosis Assessment Notes Treatment Notes Treatment Clinical Notes May, Parkinson disease (ICD-10 - G20) May, Constipation (ICD-10 - K59.00) [facility] Other 08-01-2023 Evaluation note* Encounter Date Diagnosis [...] narcotic induced constipation and he verbalized understanding. [facility] Other 07-10-2023 Evaluation note* Encounter Date Diagnosis Assessment Notes Treatment Notes Treatment Clinical Notes Apr, Hypotestosteronism (ICD-10 - E34.9) [facility] Other 06-02-2023 Hospital Discharge instructions Patient Education [...] and water are not available, use hand supervisory forester. 3.Draw up sterile water into a syringe [...] and water are not available, use hand supervisory forester. 2.Disconnect the bag from the catheter and [...] of the following methods: According to the dish room worker's instructions. As told by your health care provider. 7.Let the bag dry completely. Put it in a clean plastic bag before storing it. General tips Always wash your hands before and after caring for your catheter and collection bag. Use a mild, fragrance-free soap. If soap and water are not available, use hand supervisory forester. Clean the outside of the catheter with [...] provider. Document Revised: 12/13/2020 Document Reviewed: 11/09/2019 ElseClick Contact Patient Education 2022 [employer]. Follow Up Care 02/20/2023 10:24:17 With:WALTER YBARRA, Fidel Hinkle, URL Address: [facility] [address] , [place] [address]- When: Unknown [facility] 05-05-2023 Hospital Discharge instructions Patient Education 02/20/2023 [...] Follow these instructions at home: Medicines Take bvfg-ufj-hmauplk and prescription medicines only as told by [...] provider. Document Revised: 06/26/2021 Document Reviewed: 06/26/2021 [employer] Patient Education 2022 [employer]. Follow Up Care 01/16/2023 11:27:11 With:WALTER YBARRA, Fidel Hinkle, URL Address: [address] [place] [address]- When: Unknown [facility] 04-14-2023 Hospital Discharge instructions Patient Education 01/30/2023 [...] urethra. Follow these instructions at home: Take xxsp-rlf-txvmzjh and prescription medicines only as told by [...] 10/05/2006 Document Revised: 08/30/2019 Document Reviewed: 11/09/2017 [employer] Patient Education 2020 [employer] TV. 01/30/2023 07:57:19 Indwelling Urinary Catheter Care, Adult, Dsev-gy-Aoti Indwelling Urinary Catheter Care, Adult An indwelling [...] not have soap and water, use hand supervisory forester. Always make sure there are no twists [...] 01/30/2014 Document Revised: 01/27/2020 Document Reviewed: 05/21/2018 [employer] Patient Education 2020 [employer]. 01/30/2023 07:56:45 Benign Prostatic Hyperplasia Benign Prostatic [...] urethra. Follow these instructions at home: Take mzuj-hkm-vjsfgtp and prescription medicines only as told by [...] 10/05/2006 Document Revised: 08/30/2019 Document Reviewed: 11/09/2017 [employer] Patient Education 2020 [employer] TV. Follow Up Care 01/27/2023 14:28:53 With:WALTER YBARRA, Fidel Hinkle, URL Address: [facility] [address], [place] [address] [phone] When:Within 3 Week(s) Comments:3 weeks for SP tube change [facility] NoteOP Note OPERATION DATE: 01/22/2023 [...] the flexible scope and then passed a 26-Montserratian resectoscope sheath into the bladder, and then I used the Xention evacuator and was able to extract all [...] of the incision. I then grasped a 24-Montserratian two way Carrington catheter in the jaws [...] change his SP tube in the office.[facility] [id number] NoteEXAMINATION: XR CHEST 2 V, 01/20/2023 11:23 [...] authenticated by: SHARRON BENITEZ Date: 2023-01-20 12:49[facility] [id number] Evaluation note* Encounter Date Diagnosis Assessment Notes Treatment Notes Treatment Clinical Notes Dec, Neuropathy (ICD-10 - G62.9) [facility] Other [id number] NoteHNO ID: [id number] Author: Say Reyes APRN.NUCLEAR ENGINEER Service: ? Author Type: Nurse Practitioner Type: Progress Notes Filed: 12/24/2022 5:59 PM Note Text: The patient did not show up for this appointment.[facility] [id number] History of Present illness Narrative* Say Reyes APRN.NUCLEAR ENGINEER - 12/24/2022 11:30 AM EST The patient did not show up for this appointment. documented in this encounterUniversity Hospitals [facility]02-18-2023 NoteUniversity Hospitals [facility]02-18-2023 NoteUniversity Hospitals Conneaut [facility] Center02-18-2023 Miscellaneous Notes * Telephone Encounter - Zelda Saenz RN - 12/06/2022 1:15 PM EST [facility] pharmacist, Macrina, requests to clarify pt.'s proamatine [...] later today. documented in this encounterUniversity Hospitals Samaritan Medical Center02-17-2023 NoteUniversity Hospitals Conneaut [facility] Center02-16-2023 NoteUniversity Hospitals [facility]02-16-2023 NoteUniversity Hospitals [facility]02-15-2023 NoteUniversity Hospitals [facility]02-15-2023 Note [facility]02-15-2023 NoteUniversity Hospitals [facility]02-14-2023 NoteUniversity Hospitals [facility]02-13-2023 NoteUniversity Hospitals [facility] 12-01-2022 NoteUniversity Hospitals [facility] Center02-13-2023 NoteUniversity Hospitals [facility]02-12-2023 NoteUniversity Hospitals [facility] Center02-11-2023 NoteUniversity Hospitals [facility] Center02-11-2023 NoteUniversity Hospitals [facility]02-10-2023 Note [facility]02-09-2023 NoteUniversity Hospitals [facility] Center02-08-2023 NoteO ID: [id number] Author: Antonia Villa RN Service: ? Author Type: Registered Nurse Type: Nursing Progress Note Filed: 11/26/2022 10:03 AM Note Text: Transfer Note: Patient transferred in stable condition. Actions taken: Report given/called to G61 RN.[facility]02-08-2023 NoteUniversity Hospitals Conneaut [facility] Center02-08-2023 NoteUniversity Hospitals [facility] Center02-07-2023 NoteUniversity Hospitals [facility] Center02-06-2023 NoteUniversity Hospitals [facility]02-05-2023 Note [facility]02-04-2023 NoteUniversity Hospitals [facility] Center02-03-2023 NoteUniversity Hospitals [facility] Center02-03-2023 NoteUniversity Hospitals [facility] 11-20-2022 NoteUniversity Hospitals [facility] Center02-02-2023 NoteUniversity Hospitals [facility] Center01-30-2023 Evaluation note* Encounter Date Diagnosis Assessment Notes Treatment Notes Treatment Clinical Notes Oct, Orthostatic hypotension (ICD-10 - I95.1) [facility] Other 01-24-2023 Evaluation note* Encounter Date Diagnosis [...] He is symptomatic with dizziness and fatigue. [facility] was contacted and will attempt to [...] sympoms. We did attempt to call his regulatory affairs coordinator however nursing staff will need to discuss with Dr. Teran and they have advised that they will call both us and the patient back with an appt and recommendations due to his significant hypotention. [facility] Other 11-15-2022 Evaluation note* Encounter Date Diagnosis [...] Aug, Needs flu shot (ICD-10 - Z23) [facility] Other 11-11-2022 Evaluation note* Encounter Date Diagnosis Assessment Notes Treatment Notes Treatment Clinical Notes Aug, Benign prostatic hyperplasia with lower urinary tract symptoms, symptom details unspecified (ICD-10 - N40.1) [facility] Other 11-10-2022 Evaluation note* Encounter Date Diagnosis Assessment Notes Treatment Notes Treatment Clinical Notes Aug, Benign prostatic hyperplasia with lower urinary tract symptoms, symptom details unspecified (ICD-10 - N40.1) [facility] Other 08-30-2022 Evaluation note* Encounter Date Diagnosis Assessment Notes Treatment Notes Treatment Clinical Notes May, Neuropathy (ICD-10 - G62.9) [facility] Other 08-03-2022 Evaluation note* Encounter Date Diagnosis [...] - N40.1) May, Parkinsonism (ICD-10 - G20) [facility] Other 06-07-2022 Evaluation note* Encounter Date Diagnosis Assessment Notes Treatment Notes Treatment Clinical Notes Mar, Hypotension (ICD-10 - I95.9) [facility] Other 05-03-2022 History of Present illness Narrative* Nevaeh Oviedo RN - 02/18/2022 12:15 PM EDT Discharged with [facility] per cart to group home with AVS and scripts. * Nevaeh Oviedo RN - 02/18/2022 11:00 AM EDT Report called to [facility]. All Questions answered. Phone number given if any further questions arise. * Evelina Parra MD - 02/18/2022 10:09 AM EDT INTERNAL MEDICINE Progress Note 02/18/2022 10:09 AM Subjective: Admit Date: 02/07/2022 PCP: ELLEN CRABTREE, DO Interval History: No new c/o Tremors [...] EDT [facility] ORTHOPEDICS 7 Occupational Therapy Daily Note Time: Time In: 923 Time Out: 1001 Timed Code Treatment Minutes: 38 Minutes Minutes: 38 Date: 02/17/2022 Patient Name: Alisia Correa, Gender: male Room: [facility]12/012-A : 1960 (61 y.o.) Referring Practitioner: Maki [...] Wall, PT - 02/16/2022 10:39 AM EDT [facility] INPATIENT PHYSICAL THERAPY DAILY NOTE [facility] ORTHOPEDICS 7K - 7K-12/012-A Time In: [...] Ambulation Assistance: Independent Transfer Assistance: Independent Active Correctional Supervising Cook: Yes Additional Comments: pt states d/t PD, he requires assistance with transfers and ambulation; pt hadHH PT ENGINEERING RESEARCH MANAGER Restrictions/Precautions: Restrictions/Precautions: General Precautions,Fall Risk Required Braces [...] with LAQ noted Functional Outcome Measures: Completed AM-[facility] Inpatient Mobility [...] to navigate home distances. Additional Goals?: No Senior Controls Analyst Goals Time Frame for intermediate goals : N/A due to short ELOS Following session, patient left in safe position with all fall risk precautions in place. * Lulu Chan, OT - 02/15/2022 2:57 PM EDT [facility] ORTHOPEDICS Occupational Therapy Daily Note Time: Time In: 2 Time Out: 1520 Timed Code Treatment Minutes: 28 Minutes Minutes: 28 Date: 02/15/2022 Patient Name: Alisia Correa, Gender: male Room: [facility] : 1960 (61 y.o.) Referring Practitioner: Maki [...] Vaughan PT - 02/14/2022 3:02 PM EDT [facility] INPATIENT PHYSICAL THERAPY DAILY NOTE [facility] ORTHOPEDICS 7K - 7K-12/012-A Time In: [...] Ambulation Assistance: Independent Transfer Assistance: Independent Active Correctional Supervising Cook: Yes Additional Comments: pt states d/t PD, he requires assistance with transfers and ambulation; pt hadHH PT ENGINEERING RESEARCH MANAGER Restrictions/Precautions: Restrictions/Precautions: General Precautions,Fall Risk Required Braces or Orthoses Spinal: Lumbar Corset Other: Abdominal Binder Position Activity Restriction Spinal Precautions: No Bending,No Lifting,No Twisting Other position/activity restrictions: hx PD; monitor BP SUBJECTIVE: RN approved session. Pt pleasant and agreeable to therapy PAIN: 610: back Vitals: Vitals not assessed [...] and hip abd/add Functional Outcome Measures: Completed AM-[facility] Inpatient Mobility without Stair Climbing Raw Score : 13 AM-[facility] Inpatient without Stair Climbing T-Scale Score : [...] to navigate home distances. Additional Goals?: No Senior Controls Analyst Goals Time Frame for intermediate goals : N/A due to short ELOS [...] HOLLY Mchugh - 02/14/2022 10:57 AM EDT [facility] OCCUPATIONAL THERAPY [facility] 7K-12/012-A Date: 02/14/2022 Patient Name: Alisia Correa CSN: [id number] : 1960 (61 y.o.) Gender: male Referring [...] CRABTREE, DO Interval History: No new c/o Low [...] Lab Results: CBC: Recent Labs 02/11/22 0440 04/27/22 1452 WBC 5.7 5.1 HGB 9.8* 9.8* [...] EDT [facility] ORTHOPED[facility] 7K Occupational Therapy Daily Note Time: Time In: 1109 Time Out: 1135 Timed Code Treatment Minutes: 26 Minutes Minutes: 26 Date: 02/13/2022 Patient Name: Alisia Correa, Gender: male Room: [facility]012-A : 1960 (61 y.o.) Referring Practitioner: Maki [...] Vaughan, PT - 02/13/2022 11:02 AM EDT [facility] INPATIENT PHYSICAL THERAPY DAILY NOTE [facility] ORTHOPEDICS 7K - 7K-12/012-A Time In: 09 Time Out: 928 Timed Code Treatment Minutes: [...] Ambulation Assistance: Independent Transfer Assistance: Independent Active Correctional Supervising Cook: Yes Additional Comments: pt states d/t PD, he requires assistance with transfers and ambulation; pt hadHH PT ENGINEERING RESEARCH MANAGER Restrictions/Precautions: Restrictions/Precautions: General Precautions,Fall Risk Required Braces [...] to navigate home distances. Additional Goals?: No Senior Controls Analyst Goals Time Frame for intermediate goals : N/A due to short ELOS [...] EDT [facility] ORTHOPEDICS 7K Occupational Therapy Daily Note Time: Time In: 1356 Time Out: 1439 Timed Code Treatment Minutes: 43 Minutes Minutes: 43 Date: 02/12/2022 Patient Name: Alisia Correa, Gender: male Room: -12/012-A : 1960 (61 y.o.) Referring Practitioner: Maki [...] throughout Due to fatigue and Pain. PAIN: 8/10:back RN aware Vitals: Vitals not assessed per [...] Patient tolerance of treatment: fair. Discharge Recommendations: Subacute/long-term facility and Inpatient Therapy Stay Equipment Recommendations: [...] Status: At risk for malnutrition (Comment) (02/10/22 8518) Context: Acute Illness Findings of the 6 clinical characteristics of malnutrition: Energy Intake: No significant decrease in energy intake Weight Loss: (4.8% wt loss in 18 days however now eating 76-100%) Body Fat Loss: No significant body fat loss Muscle Mass Loss: No significant muscle mass loss Fluid Accumulation: Mild Extremities Clam Digger Strength: Not Performed Nutrition Assessment: Pt. nutritionally [...] Anthropometric Measures: Height: 5' 10 (177.8 cm) [place] Body Weight (IBW): 166 lbs (75 kg) Admission Body Weight: 199 lb (90.3 kg) ((02/07) trace LLE & RLE edema) Current Body Weight: 240 lb (108.9 kg) ((02/09) + 1nonpitting RUE, LUE, RLE, LLE edema), Current BMI (kg/m2): 34.4 Usual Body Weight: (per EMR: 01/23 209# 7oz) BMI Categories: Obese Class 1 (BMI 30.0-34.9) Estimated Daily Nutrient Needs: Energy Requirements Based On: Kcal/kg Energy (kcal/day): 1625-1806kcals (18-20kcals/kgm) Weight Used for Protein Requirements: [place] Protein (g/day): 105-150 grams (1.4-2 grams protein/kgm [...] Evelina Parra MD, MD * Samantha Corrales, ENGINEERING RESEARCH MANAGER - 02/12/2022 11:52 AM EDT [facility] INPATIENT PHYSICAL THERAPY DAILY NOTE [facility] ORTHOPEDICS 7K - 7K-12/012-A Time In: [...] Ambulation Assistance: Independent Transfer Assistance: Independent Active Correctional Supervising Cook: Yes Additional Comments: pt states d/t PD, he requires assistance with transfers and ambulation; pt hadHH PT ENGINEERING RESEARCH MANAGER Restrictions/Precautions: Restrictions/Precautions: General Precautions,Fall Risk Required Braces [...] to navigate home distances. Additional Goals?: No Chcf Goals Time Frame for buttermilk drier operator goals : N/A due to short ELOS [...] 02/11/2022 6:16 PM EDT Pt admitted to [facility] via cart/stretcher. Complaints: L2-S1 degenerative disc disease. [...] room. Explained patients right to have family, product representative or physician notified of their admission. Patient has Declined for physician to be notified. Patient has Declined for family/product representative to be notified. The patient is interested in [facility] meds to beds program?: No Policies and procedures for explained. All questions answered with no further questions at this time. Fall prevention and safety brochure discussed with patient. Bed alarm on. Call light in reach. * Peace Alonso RN - 02/11/2022 5:00 PM EDT Call placed to patients Dipti. Updated that the patient is transferring to [facility]. * Pamela Lees PT - 02/11/2022 3:42 PM EDT [facility] INPATIENT PHYSICAL THERAPY DAILY NOTE STR ICU STEPDOWN TELEMETRY - -A Time In: 1330 Time Out: 1353 Timed [...] Ambulation Assistance: Independent Transfer Assistance: Independent Active Correctional Supervising Cook: Yes Additional Comments: pt states d/t PD, he requires assistance with transfers and ambulation; pt hadHH PT ENGINEERING RESEARCH MANAGER Restrictions/Precautions: Restrictions/Precautions: General Precautions,Fall Risk Required Braces or Orthoses Spinal: Lumbar Corset Other: Abdominal Binder Position Activity Restriction Spinal Precautions: No Bending,No Lifting,No Twisting Other position/activity restrictions: hx PD; monitor BP SUBJECTIVE: first trial in am pt stated just back to bed. Second trial in pm pt agreeable for PT and OOB to chair PAIN: 710: MILLER, per pt had MILLER after back [...] to navigate home distances. Additional Goals?: No Chcf Goals Time Frame for buttermilk drier operator goals : N/A due to short ELOS Following session, patient left in safe position with all fall risk precautions in place. * Danica Lopes HOLLY - 02/11/2022 1:02 PM EDT [facility] STR ICU STEPDOWN TELEMETRY 4K Occupational Therapy Daily Note Time: Time In: 1045 Time Out: 1129 Timed Code Treatment Minutes: 44 Minutes Minutes: 44 Date: 02/11/2022 Patient Name: Alisia Correa, Gender: male [facility] 1960 (61 y.o.) Referring Practitioner: Maki [...] Status: At risk for malnutrition (Comment) (02/10/22 6725) Context: Acute Illness Findings of the 6 clinical characteristics of malnutrition: Energy Intake: No significant decrease in energy intake Weight Loss: (4.8% wt loss in 18 days however now eating 76-100%) Body Fat Loss: No significant body fat loss Muscle Mass Loss: No significant muscle mass loss Fluid Accumulation: Mild Extremities Clam Digger Strength: Not Performed Nutrition Assessment: Pt. nutritionally [...] Anthropometric Measures: Height: 5' 10 (177.8 cm) [place] Body Weight (IBW): 166 lbs (75 kg) [...] 1625-1806kcals (18-20kcals/kgm) Weight Used for Protein Requirements: [place] Protein (g/day): 105-150 grams (1.4-2 grams protein/kgm [...] EDT Physician Progress Note PATIENT: ALISIA CORREA ERWIN #: [id number] : 1960 ADMIT DATE: 02/07/2022 8:09 AM [...] you! Ronny Salcedo, FARIBAN,RN, CRCR RN Clinical Motorcycle Engine Assembler P: [phone] Options provided: -- Hypovolemic Shock -- Hypovolemia [...] HOLLY Mchugh - 02/10/2022 2:42 PM EDT [facility] ICU STEPDOWN TELEMETRY 4K Occupational Therapy Daily Note Time: Time In: 1358 Time Out: 1421 Timed Code Treatment Minutes: 23 Minutes Minutes: 23 Date: 02/10/2022 Patient Name: Alisia Correa, Gender: male [facility] : 1960 (61 y.o.) Referring Practitioner: Maki [...] Alisia Correa Date of : 1960 Acct: [id number] Admit Date: 02/07/2022 Primary Spotlight Operator: none Per Dr Schrader's note: REASON FOR [...] Calix PTA - 02/10/2022 9:53 AM EDT [facility] INPATIENT PHYSICAL THERAPY DAILY NOTE [facility] ICU STEPDOWN TELEMETRY 4K - 4K-025-A Time In: 817 Time Out: 902 Timed [...] Needs assistance Transfer Assistance: Needs assistance Active Correctional Supervising Cook: No Additional Comments: pt states d/t PD, he requires assistance with transfers and ambulation; pt hadHH PT ENGINEERING RESEARCH MANAGER Restrictions/Precautions: Restrictions/Precautions: General Precautions,Fall Risk Required Braces [...] with functional mobility. Functional Outcome Measures: Completed [facility] Inpatient Mobility Raw Score : 12 AM-[facility] Inpatient T-Scale Score : 35.33 ASSESSMENT: Assessment: [...] to navigate home distances. Additional Goals?: No Senior Controls Analyst Goals Time Frame for buttermilk drier operator goals : N/A due to short ELOS [...] Intake/Output Summary (Last 24 hours) at 02/10/2022 0725 Last data filed at 02/10/2022 0547 Gross [...] Progress Note PATIENT: ALISIA CORREA CSN #: [id number] : 1960 ADMIT DATE: 02/07/2022 8:09 AM DISCH DATE: RESPONDING PROVIDER #: DON SINGH PA-C QUERY TEXT: Pt admitted with L2-S1 degenerative disc disease with neuroforaminal stenosis and radiculopathy and L2-L4 central canal stenosis, and underwent surgery on 02/07. 02/07 IM note states, Acute resp failure postop. 02/07 @ 1439: 90% on RA...91% on 6 L; 02/07: weaned to RA; 02/0800: 94% on 2 L. If possible, please [...] 1439: 90% on RA...91% on 6 L; 02/07: weaned to RA; 02/08 0900: 94% on 2 L; PICHARDO, expiratory wheezes Treatment: O2 via NC, Dulera Thank you! Nevaeh Goldsmith, RN, BSN, SPRAYER OPERATOR, CCDS Clinical Motorcycle Engine Assembler Options provided: -- Acute pulmonary insufficiency following [...] Alisia Correa Date of : 1960 Acct: [id number] -[id number] Primary Care Physician: ELLEN CRABTREE DO [...] TROPONINT in the last 72 hours. Imaging: @[id number]@ EKG: Diet: ADULT DIET; Regular; 4 carb [...] started 1141 BP 85/47 after bolus. Updated NUCLEAR ENGINEER. 1218 BP 70/38, MD at bedside. Ordered [...] Griffin OT - 02/08/2022 1:01 PM EDT [facility] INPATIENT OCCUPATIONAL THERAPY [facility] 7K EVALUATION Time: Time In: 1052 [...] needing to return to bed from recliner. BENEFITS CLERK present to assist. Pain: 12/26 Vitals: Blood [...] Needs assistance Transfer Assistance: Needs assistance Active Correctional Supervising Cook: No Additional Comments: pt states d/t PD, he requires assistance with transfers and ambulation; pt hadHH PT ENGINEERING RESEARCH MANAGER VISION:WFL HEARING: WFL COGNITION: Slow Processing and [...] Pandya, PT - 02/08/2022 10:33 AM EDT [facility] INPATIENT PHYSICAL THERAPY EVALUATION [facility] 7K - 7K-26/026-A Time In: [...] Assistance: Needs assistance ( assists him) Active Correctional Supervising Cook: No Additional Comments: pt states d/t PD, he requires assistance with transfers and ambulation; pt hadHH PT ENGINEERING RESEARCH MANAGER OBJECTIVE: Range of Motion: Bilateral Lower Extremity: [...] diaphoretic, and lightheaded Functional Outcome Measures: Completed AM-[facility] Inpatient Mobility Raw Score : 11 AM-[facility] Inpatient T-Scale Score : 33.86 ASSESSMENT: Activity [...] to navigate home distances. Additional Goals?: No Senior Controls Analyst Goals Time Frame for buttermilk drier operator goals : N/A due to short ELOS [...] ordered Zetia 10 mg nightly. Per the [facility] Formulary Committee Policy, this medication is [...] VSS. Respirations unlabored 1550 Report called to FOSTER kamara 1606 Pt meets criteria for discharge from recovery at this time. Pt departing recovery in stable condition with tranport * Oumou Elizabeth RN - 02/07/2022 2:11 PM EDT Pt admitted to [facility] via cart/stretcher. Complaints: L2-S1 decompression/fusion. IV normal [...] room. Explained patients right to have family, product representative or physician notified of their admission. Patient has Declined for physician to be notified. Patient has Declined for family/product representative to be notified. The patient is interested in [facility] meds to beds program?: No Policies and procedures for explained. All questions answered with no further questions at this time. Fall prevention and safety brochure discussed with patient. Bed alarm on. Call light in reach. * Kiara Toro RN - 02/07/2022 9:49 AM EDT ADMITTED TO [facility] AND ORIENTED TO UNIT. SCDS ON. FALL AND ALLERGY BANDS ON. PT VERBALIZED APPROVAL FOR FIRST NAME, LAST INITIAL AND PHYSICIAN NAME ON UNIT WHITEBOARD. * Evangelist Cummins - 01/20/2022 9:11 AM EDT Called for PAT reminder Lft Msg. documented in this [facility] Phone: [phone]) 299-924305-03-2022 Hospital Discharge instructions* Discharge Instr - DYLON* [...] directive for healthcare treatment Durable power of ip technology transactions attorney for health care No, copy requested from family Healthcare power of ip technology transactions attorney Dipti- -- Admitting Physician: Frank Reddy MD PCP: ELLEN CRABTREE DO Discharging Nurse: Discharging Hospital Unit/Room#: 7K-12/012-A Discharging Unit Phone Number: Emergency Contact: Extended Emergency Contact Information Primary Emergency Contact: Dipti Correa Mobile Relation: Spouse Preferred language: Yoruba Medical Records Clerk needed? No Past Surgical History: Past Surgical History: Procedure Laterality Date BACK SURGERY x8 CYST REMOVAL spine with back surgery ESOPHAGUS SURGERY for cancer HAND SURGERY x3 HIP ARTHROPLASTY Bilateral KNEE ARTHROPLASTY Bilateral left x2 LUMBAR FUSION N/A 02/07/2022 L2-S1 DECOMPRESSION L2-S1 POSTERIOR FUSION WITH ILIAC BOLTS, L5-S1 TLIF performed by Frank Reddy MD at [facility] OR NECK SURGERY lymph nodes SHOULDER SURGERY [...] Assisted Dressing Assisted Toileting Assisted Feeding Assisted Mechanical Drafter Assisted Med Delivery whole Wound Care Documentation [...] applicable) Name: Address: Dialysis Schedule: Phone: Fax: Sr. Vendor Management Associate/Boiler House Operator signature: {Esignature:[id number]} PHYSICIAN SECTION Prognosis: {Prognosis:0226458309} Condition at Discharge: { Patient Condition:912458374} Rehab Potential (if transferring to Rehab): {Prognosis:9482084755} Recommended Labs or Other Treatments After Discharge: Physician Certification: I certify the above information and transfer of Alisia Correa is necessary for the continuing treatment of the diagnosis listed and that he requires {Admit to Appropriate Level of Care:31360} for {GREATER/LESS:617312482} 30 days. Update Admission H&P: {CHP DME Changes in HandP:411759415} PHYSICIAN SIGNATURE: * Additional Instructions* Nevaeh Oviedo, RN - 02/11/2022 Back Surgery Activity No [...] All vegetables, especially asparagus, jack sprouts, broccoli, [place] sprouts, cabbage, carrots, cauliflower, celery, corn, greens, [...] taking more than one drug. This includes [id number] medication and herb or dietary supplements. Plan [...] dr schrader 6-8 weeks documented in this [facility] Work Phone: 1(700) 313-777304-23-2022 NotePROCEDURE: XR CHEST PORTABLE CLINICAL INFORMATION: SOB. [...] Signed by: Romel Maldonado DO 02/08/22 [facility]-20[facility] NotePROCEDURE: XR CHEST PORTABLE CLINICAL INFORMATION: [...] stable degenerative changes of the acromioclavicular joints. [facility] [id number] NotePROCEDURE: XR LUMBAR SPINE 1 VW CLINICAL [...] Signed by: Milton Way MD 02/07/22 Final resultSColumbus [facility]04-22-2022 NotePROCEDURE: XR LUMBAR SPINE 1 VW CLINICAL [...] behind the L2 and L3 vertebral bodies. [facility] [id number] Evaluation note* Encounter Date Diagnosis Assessment Notes [...] Nasal swab noted MRSA. 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 [employer] Other 04-07-2022 NotePROCEDURE: XR CHEST (2 VW) [...] Signed by: Olga Espinoza MD 01/23/22 Final resultSColumbus [facility]04-04-2022 Evaluation note* Encounter Date Diagnosis Assessment Notes Treatment Notes Treatment Clinical Notes Jan, Parkinsonism (ICD-10 - G20) Jan, Diabetes (ICD-10 - E11.9) [place] [employer] Other 03-28-2022 Evaluation note* Encounter Date Diagnosis Assessment Notes Treatment Notes Treatment Clinical Notes Dec, Constipation (ICD-10 - K59.00) [place] [employer] Other 02-17-2022 Evaluation note* Encounter Date Diagnosis Assessment Notes Treatment Notes Treatment Clinical Notes Nov, Hyperlipidemia (ICD-10 - E78.5) Nov, Parkinsonism (ICD-10 - G20) Patient following with neurologist Dr. Mancia and automatic mounter Dr. Harris. He reports improvement with his [...] symptoms, symptom details unspecified (ICD-10 - N40.1) [place] [employer] Other 02-07-2022 Miscellaneous Notes* Telephone Encounter - Chrissy Christian - 11/25/2021 3:17 PM EST FINAL ATTEMPT Called and left detailed message for patient to call to schedule procedure with pain management. Will follow up. Patient provided with direct extension to reach surgical coordinators. If patient calls back, please transfer to [phone]. * Telephone Encounter - Chrissy Christian - 11/21/2021 6:07 PM EST Bilateral L 2-3 ,3-L4, L4-L5 and L5-S1 FACET ALISIA CORREA [id number] JEANNIE CAMENGER Called and left detailed message for patient to call to schedule procedure with pain management. Will follow up. Patient provided with direct extension to reach surgical coordinators. If patient calls back, please transfer to [phone]. * Telephone Encounter - Chrissy Christian - 11/14/2021 11:53 AM EST Bilateral L 2-3 ,3-L4, L4-L5 and L5-S1 FACET ALISIA CORREA [id number] JEANNIE Called and left detailed message for patient to call to schedule procedure with pain management. Will follow up. Patient provided with direct extension to reach surgical coordinators. If patient calls back, please transfer to [phone]. * Telephone Encounter - Kiara Dhaliwal RN [...] today's block. documented in this encounterUniversity [facility]als [facility]01-05-2022 Evaluation note* Encounter Date Diagnosis Assessment Notes Treatment Notes Treatment Clinical Notes Oct, Hypotension, unspecified hypotension type (ICD-10 - I95.9) Oct, Risk for falls (ICD-10 - Z91.81) Oct, Diabetes (ICD-10 - E11.9) Oct, Neuropathy (ICD-10 - G62.9) Oct, Failed back syndrome (ICD-10 - M96.1) Oct, Parkinsonism (ICD-10 - G20) [place] [employer] Other 12-13-2021 Evaluation note* Encounter Date Diagnosis Assessment Notes Treatment Notes Treatment Clinical Notes Sep, Parkinsonism (ICD-10 - G20) [place] [employer] Other 11-16-2021 Evaluation note* Encounter Date Diagnosis Assessment Notes Treatment Notes Treatment Clinical Notes Aug, Benign prostatic hyperplasia with lower urinary tract symptoms (ICD-10 - N40.1) [place] [employer] Other 11-09-2021 Evaluation note* Encounter Date Diagnosis [...] I strongly recommend the patient contact his take out waiter/waitress to be evaluated. 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 [employer] Other 10-28-2020 History of Present illness Narrative* [...] PERIPHERAL IV DATA: Not applicable SIGNED BY: OMERO Amanda August 15, 2020 8:27 AM documented in this encounterUniversity Hospitals [facility]ar[facility]08-28-2020 History of Present illness Narrative* [place] Block)OMERO - 06/15/2020 9:00 AM EDT Radiology Service [...] PERIPHERAL IV DATA: Not applicable SIGNED BY: OMERO Amanda June 15, 2020 9:03 AM documented in this encounterUniversity Hospitals Samar[facility] Center02-19-2018 History of Past illness Narrative* Problem Noted Date Resolved Date Ulcerative lesion 12/07/2017 07/21/2019 Glenohumeral arthritis 07/17/2016 9 SPRAIN OF NECK () 03/06/2004 07/21/20 19 Brachial neuritis or radiculitis 03/06/2004 12/22/2018 Carpal tunnel syndrome 03/06/2004 9 documented as of this encounter (statuses as of 01/28/2022) [facility] History of Past illness Narrative* Problem Noted Date Resolved Date Ulcerative lesion 12/07/2017 07/21/2019 Glenohumeral arthritis 07/17/2016 9 Urgency of urination 07/31/2006 12/05/2022 SPRAIN OF NECK () 03/06/2004 07/21/20 Brachial neuritis or radiculitis 03/06/2004 12/22/2018 Carpal tunnel syndrome 03/06/2004 9 documented as of this encounter (statuses as of 12/06/2022) [facility] History of Past illness Narrative* Problem Noted Date Resolved Date Ulcerative lesion 12/07/2017 07/21/2019 Glenohumeral arthritis 07/17/2016 9 Urgency of urination 07/31/2006 12/05/2022 SPRAIN OF NECK () 03/06/2004 07/21/20 Brachial neuritis or radiculitis 03/06/2004 12/22/2018 Carpal tunnel syndrome 03/06/2004 9 documented as of this encounter (statuses as of 12/25/2022) [facility] History of Past illness Narrative* Problem Noted Date Diagnosed Date Resolved Date Ulcerative lesion 12/07/2017 07/21/2019 Glenohumeral arthritis 07/17/201612/22 Urgency of urination 07/31/2006 023 SPRAIN OF NECK () 03/06/200412/2018 Brachial neuritis or radiculitis 03/06/2004 12/22/2018 Carpal tunnel syndrome 03/06/200412/22 documented as of this encounter (statuses as of 05/29/2023) [facility] History of Past illness Narrative* Problem Noted Date Diagnosed Date Resolved Date Ulcerative lesion 12/07/2017 07/21/2019 Glenohumeral arthritis 07/17/201612/22 Urgency of urination 07/31/2006 023 SPRAIN OF NECK () 03/06/200412/2018 Brachial neuritis or radiculitis 03/06/2004 12/22/2018 Carpal tunnel syndrome 03/06/200412/22 documented as of this encounter (statuses as of 05/29/2023) [facility] History of Past illness Narrative* Problem Noted Date Diagnosed Date Resolved Date Ulcerative lesion 12/07/2017 07/21/2019 Glenohumeral arthritis 07/17/201612/22 Urgency of urination 07/31/2006 023 SPRAIN OF NECK () 03/06/200412/2018 Brachial neuritis or radiculitis 03/06/2004 12/22/2018 Carpal tunnel syndrome 03/06/200412/22 documented as of this encounter (statuses as of 05/29/2023) [facility]08-[facility]-2012 History general Narrative - Reported* Type Description Date Medical History 06/07/12 Stress Test [facility] Medical History 2008-colonoscopy wit h Dr. Ordonez; 07/2016 colonoscopy/egd [facility] Medical History 01/26/15 Labs Medical History 03/2016- stress test and echocar diogram at [facility] Medical History 03/2016 EGD at [facility] Medical History 08/20/16 PSA ( 0.79) Medical History f/u with Pain Mgmt Dr Elkins as of 02/2017 Medical History f/u with Ortho Dr Conway (left k nee) Medical History Smoker- quits and restarts often Medical History 10/14/19 Colonoscopy w/ Dr. cMdonald man Medical History Right total hip-04/10/20 Surgical History 4 back surgeries lumbar and cer vical Surgical History rt shoulder surgery x2 Surgical History lt knee surgery Surgical History right hand surgery x 2 Surgical History vasectomy Surgical History T&A Surgical History lumbar surgery. 10 Surgical History back surgery 06-30 Surgical History left knee surgery 06/2013 Surgical History pain stimulator 06/2016 Surgical History left knee total replacement 2 n d 04/27/2017 Surgical History Right Total Knee Replacement Surgical History Left Shoulder Replacement 12/29 Surgical History Prostate Bands Placed 8 Surgical History bronchoscopy 02/17/2019 Surgical History Right total hip-CC 04/10/20 Hospitalization History SEE ABOVE [facility] Other [id number] History general Narrative - Reported* Type Description Date Medical History 06/07/12 Stress Test [facility] Medical History 2008-colonoscopy ruba Ordonez; 07/2016 colonoscopy/egd [facility] Medical History 01/26/15 Labs Medical History 03/2016- stress test and echocar diogram at [facility] Medical History 03/2016 EGD at [facility] Medical History 08/20/16 PSA ( 0.79) Medical [...] Roman hinkle 10/2021 Hospitalization History SEE ABOVE [facility] Other 08-20-2012 History general Narrative - Reported* Type Description Date Medical History 06/07/12 Stress Test [facility] Medical History 2008-colonoscopy ruba Ordonez; 07/2016 colonoscopy/egd [facility] Medical History 01/26/15 Labs Medical History 03/2016- stress test and echocar diogram at [facility] Medical History 03/2016 EGD at [facility] Medical History 08/20/16 PSA ( 0.79) Medical [...] Owens r 10/2021 Hospitalization History SEE ABOVE [facility] Other 08-20-2012 History general Narrative - Reported* Type Description Date Medical History 06/07/12 Stress Test NO Medical History 2008-colonoscopy wit h Dr. Ordonez; 07/2016 colonoscopy/egd [facility] Medical History 01/26/15 Labs Medical History 03/2016- stress test and echocar diogram at [facility] Medical History 03/2016 EGD at [facility] Medical History 08/20/16 PSA ( 0.79) Medical [...] lumbar nerve blocks Dr. Owens r 10/2021 Surgical History Lumbar decompression/fusion Dr Romo 01/2022 Hospitalization History SEE ABOVE [facility] Other 08-20-2012 History general Narrative - Reported* Type Description Date Medical History 06/07/12 Stress Test NO Medical History 2008-colonoscopy ruba Ordonez; 07/2016 colonoscopy/egd [facility] Medical History 01/26/15 Labs Medical History 03/2016- stress test and echocar diogram at [facility] Medical History 03/2016 EGD at [facility] Medical History 08/20/16 PSA ( 0.79) Medical [...] History SEE ABOVE Hospitalization History pneumonia 10/2022 [facility] Other 08-20-2012 History general Narrative - Reported* Type Description Date Medical History 06/07/12 Stress Test NO Medical History 2008-colonoscopy ruba Ordonez; 07/2016 colonoscopy/egd [facility] Medical History 01/26/15 Labs Medical History 03/2016- stress test and echocar diogram at [facility] Medical History 03/2016 EGD at [facility] Medical History 08/20/16 PSA ( 0.79) Medical [...] History SEE ABOVE Hospitalization History pneumonia 10/2022 [facility] Other Chief complaint Narrative - ReportedALISIA CORREA is being seen for a consultation for chest pain.-[facility] 250 DO Work Phone: Chief complaint Narrative - Reported* ALISIA CORREA is being seen for a consultation for chest pain. * 60-year-old white male who is being evaluated at the request of PCP for symptoms of dyspnea and chest pain with syncope. The patient appears older than his stated age and unfortunately has history ofParkinson's disease followed by neurology from [place] on medical therapy. The patient has been [...] 7 Parkinson's disease followed by neurology from [place]. * 8 obesity, encouraged the patient to reduce caloric consumption * 9 possible PAD, patient is following up with podiatry [place] [id number] Work Phone: Evaluation + Plan note Future Appointments Appointment Date:02/20/2023 09:15:00 AM Scheduled Provider:Fidel IBARRA MD Location:[facility] Appointment Type:URO Office Visit [facility] evaluation + Plan note Future Appointments Appointment Date:03/20/2023 09:00:00 AM Scheduled Provider: Location:[facility] Appointment Type:URO Nurse Visit [facility] evaluation + Plan note Future Appointments Appointment Date:04/17/2023 09:00:00 AM Scheduled Provider: Location:[facility] Appointment Type:URO Nurse Visit [facility] evaluation + Plan note Future Appointments Appointment Date:05/25/2023 11:00:00 AM Scheduled Provider: Location:[facility] Appointment Type:URO Nurse Visit [facility] evaluation + Plan note Future Appointments Appointment Date:06/19/2023 11:00:00 AM Scheduled Provider: Location:[facility] Appointment Type:URO Nurse Visit [facility] evaluation + Plan note Future Appointments Appointment Date:06/19/2023 11:00:00 AM Scheduled Provider: Location:[facility] Appointment Type:URO Nurse Visit Diagnostic Tests Pending * [facility] Appointment Date:07/17/2023 11:00:00 AM Scheduled Provider: Location:[facility] Appointment Type:URO Nurse Visit [facility] evaluation + Plan note Future Appointments Appointment Date:07/17/2023 11:00:00 AM Scheduled Provider: Location:[facility] Appointment Type:URO Nurse Visit Diagnostic Tests Pending * [facility]ments Appointment Date:08/14/2023 11:00:00 AM Scheduled Provider: Location:[facility] Appointment Type:URO Nurse Visit [facility] evaluation + Plan note Future Appointments Appointment Date:08/14/2023 11:00:00 AM Scheduled Provider: Location:[facility] Appointment Type:URO Nurse Visit Diagnostic Tests Pending * [facility]ments Appointment Date:09/14/2023 11:00:00 AM Scheduled Provider: Location:[facility] Appointment Type:URO Nurse Visit [facility] evaluation + Plan note Future Appointments Appointment Date:10/20/2023 11:00:00 AM Scheduled Provider: Location:[facility] Appointment Type:URO Nurse Visit [facility] evaluation + Plan note Future Appointments Appointment Date:11/16/2023 11:00:00 AM Scheduled Provider: Location:[facility] Appointment Type:URO Nurse Visit Diagnostic Tests Pending * [facility]ments Appointment Date:12/14/2023 11:30:00 AM Scheduled Provider: Location:[facility] Appointment Type:URO Nurse Visit [facility] evaluation + Plan note Future Appointments Appointment Date:02/01/2024 11:00:00 AM Scheduled Provider: Location:[facility] Appointment Type:URO Nurse Visit [facility] evaluation + Plan note Future Appointments Appointment Date:02/22/2024 11:00:00 AM Scheduled Provider: Location:[facility] Appointment Type:URO Nurse Visit [facility] evaluation + Plan note Future Appointments Appointment Date:03/15/2024 10:30:00 AM Scheduled Provider: Location:[facility] Appointment Type:URO Nurse Visit [facility] evaluation + Plan note Future Appointments Appointment Date:03/15/2024 10:30:00 AM Scheduled Provider: Location:[facility] Appointment Type:URO Nurse Visit Diagnostic Tests Pending * [facility]ments App[facility]ment Date:04/05/2024 02:40:00 PM Scheduled Provider:TITI Duncan APRN [place] X Location:[facility] Appointment Type:URO Office Visit [facility] evaluation + Plan note Future Appointments Appointment Date:04/26/2024 11:30:00 AM Scheduled Provider:TITI Duncan APRN [place] X Location:[facility] Appointment Type:URO Office Visit [facility] evaluation + Plan note Future Appointments Appointment Date:04/26/2024 11:30:00 AM Scheduled Provider:TITI Duncan APRN, [place] X Location:[facility] Appointment Type:URO Office Visit Diagnostic Tests Pending * [facility] Lumbar [facility] with neurogenic claudication- Primary Spinal stenosis, lumbar region, with neurogenic claudication Idiopathic hypotension Hypotension, unspecified documented in this encounter [employer] Work Phone: evaluation noteNo [employer] Other Evaluation note* Diagnosis NO SHOW- Primary [facility] Diagnosis Postlaminectomy syndrome of lumbar region Postlaminectomy syndrome, lumbar region Pain in thoracic spine Spinal cord stimulator status Other postprocedural status documented in this encounter [facility] Diagnosis Radiculopathy of lumbar region Thoracic or lumbosacral neuritis or radiculitis, unspecified documented [facility] this [facility]* Diagnosis Pain in thoracic spine S/P insertion of spinal cord stimulator documented [facility] this [facility]* Diagnosis Parkinson's disease Paralysis agitans [facility] Parkinson's disease Paralysis agitans [facility] Diagnosis Parkinson's disease without dyskinesia or fluctuating manifestations- Primary Spinal stenosis of lumbar region with neurogenic claudication Anxiety Anxiety state, unspecified [facility] Diagnosis Orthostasis Orthostatic hypotension [facility] Diagnosis Onset Date Resolution Status Diarrhea acute Incontinence of bowel acute Mucus in stool acute Nausea acute [facility] Work Phone: Evaluation note* Diagnosis Onset Date Resolution Status Diarrhea acute Incontinence of bowel acute Mucus in stool acute Nausea acute Chronic pain syndrome acute Hyperlipidemia acute Hypotestosteronism acute Mucus in stool acute Neurogenic bladder acute Neurogenic bowel acute Suprapubic catheter acute [facility] Work Phone: Hospital course Narrative No data available for this section [facility] Hospital Discharge instructions No data available for this section [facility] InstructionsNot on filedocumented in this encounter [facility] filedocumented in this [facility] filedocumented in this encounter [facility] No data available for this section [facility] reason for referral (narrative)* Reason Home physical therap y evaluation and treatment requested. Diagnosis 1 Hypotension, unspeci fied hypotension type (I95.9) Diagnosis 2 Diabetes (E11.9) Diagnosis 3 Parkinsonism (G20) Diagnosis 4 Neuropathy (G62.9) Diagnosis 5 Failed back syndrome (M96.1) Diagnosis 6 Risk for falls (Z91. 81) Referral Organization [facility] [place] Referring Provider First Name Ellen Referring Provider Last Name Leyda Referring Provider Specialty Family Prac candice Referred Organization [facility] Referred Address [address] [place], [place],[address] Referred Provider Specialty Physical The rapist Referral Priority Routine [employer] Other Reason for referral (narrative)* Reason Patient is needing i n office consultation for change in stool and nausea. Please call patient with appointment date and time Diagnosis 1 Change in stool (R19 .5) Diagnosis 2 Nausea (R11.0) Referral Organization [facility] [place] Referring Provider First Name Ellen Referring Provider Last Name Leyda Referring Provider Specialty Family Prac candice Referred Organization [facility] Referred Address [address],[address] Referred Provider Specialty Gastroentero logy Referral Priority Routine [employer] Other Reason for visit Narrative* Auth/Cert Specialty Diagnoses / Procedures Referred By Agustina molina Referred To Contact Diagnoses Lumbosacral spinal stenosis LUMBOSACRAL SPINAL STENOSIS Procedures POSTERIOR SEGMENTAL INSTRUMENTATION 3-6 VRT SEG RI INSJ BIOMCHN DEV INTERVERTEBRAL DSC SPC W/ARTHRD RI ALLOGRAFT FOR SPINE SURGERY ONLY MORSELIZED RI ARTHRODESIS COMBINED TQ 1NTRSPC LUMBAR RI ALEGRIA FACETEC/FORAMOT DRG ARTHRD LUMBAR 1 VRT SGM RI ALEGRIA FACETEC/FORAMOT DRG ARTHRD LMBR EA ADDL SGM RI ARTHRODESIS PST/PSTLAT TQ 1NTRSPC EA ADDL NTRSPC L2-S1 DECOMPRESSION L2-S1 POSTERIOR FUSION WITH ILIAC BOLTS, L5-S1 TLIF Frank Reddy MD [address] [place] [address] [place] [address] [employer] [address] [place] [address] Referral ID Status Reason Start Date Expiration Date Visits Re quested Visits Authorized [id number] 1 1 [employer] Phone: Summary Purpose Family History No Family [...] FoundDocuments on File Type Date Recorded 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 Note HNO ID: [id number] Author: Jason Guevara Jr. Service: Orthopaedic Surgery [...] (more content not included)... Note HNO ID: [id number] Author: Judy Mathews Service: ? Author Type: Nurse Children'S Literature Professor Type: Anesthesia Procedure Notes Filed: 05/03/2020 1:32 PM Note Text: ANESTHESIOLOGY PROCEDURE NOTE Airway General Information Procedure Start Time/Medication Administration: 05/03/2020 12:55 PM Patient location during procedure: OR Staffing SET ILLUSTRATOR: Kathleen Mathews Performed by: APRIL Indications and [...] not included)... Procedure Findings Note HNO ID: [id number] Author: Judy Mathews Service: ? 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) Referral Organization [facility] [place] Referring Provider First Name Ellen Referring Provider Last Name Leyda Referring Provider Specialty Family Prac candice Referred Organization [facility] Referred Provider Yifan Gama Referred Address [address],[address] Referred Provider Specialty Gastroentero logy Referral Priority Routine General Notes Tomeka Hussein 021 10:28:40 AM >Graciela, is this suppose to be urgentVeGraciela farley 08/06/2021 10:49:26 AM > no, sorry must have accidentally made urgent :) Specialty Diagnoses / Procedures Referred By Agustina molina Referred To Contact Rehabilitation Diagnoses Parkinson's disease without dyskinesia or fluctuating manifestations Loree Linda, LEAD DENTAL ASSISTANT-NUCLEAR ENGINEER [address] [place] [address] Referral ID Status Reason Start Date Expiration Date Visits Requested Visits Authorized [id number] Pending Review Specialty Services Required 11/16/2023 11/15/2024 1 1 Specialty Diagnoses / Procedures Referred By Agustina molina Referred To Contact Speech Pathology Diagnoses Parkinson's disease without dyskinesia or fluctuating manifestations Loree Linda, LEAD DENTAL ASSISTANT-NUCLEAR ENGINEER [address] [place] [address] Referral ID Status Reason Start Date Expiration Date Visits Requested Visits Authorized [id number] Pending Review Specialty Services Required 11/16/2023 11/15/2024 [...] and content) DATE CREATED AUTHOR 04/09/2018 [facility] DATE CREATED AUTHOR AUTHOR'S ORGANIZ ATION 04/14/[address] [facility] DATE CREATED AUTHOR AUTHOR'S ORGANIZ ATION 04/14/2018 [facility] DATE CREATED AUTHOR AUTHOR'S ORGANIZ ATION 05/12/2020 [facility] DATE CREATED AUTHOR AUTHOR'S ORGANIZ ATION 09/17/2020 [facility] DATE CREATED AUTHOR AUTHOR'S ORGANIZ ATION 08/18/2021 [facility] DATE CREATED AUTHOR AUTHOR'S ORGANIZ ATION 09/10/2021 [facility] DATE CREATED AUTHOR AUTHOR'S ORGANIZ ATION 02/23/2022 [facility] DATE CREATED AUTHOR AUTHOR'S ORGANIZ ATION 12/15/2022 [facility] DATE CREATED AUTHOR AUTHOR'S ORGANIZ ATION 12/26/2022 [facility] DATE CREATED AUTHOR AUTHOR'S ORGANIZ ATION 03/29/2023 [facility] DATE CREATED AUTHOR AUTHOR'S ORGANIZ ATION 04/02/2024 [facility] DATE CREATED AUTHOR AUTHOR'S ORGANIZ ATION 04/08/2024 [facility] DATE CREATED AUTHOR AUTHOR'S ORGANIZ ATION 04/12/2024 [facility] DATE CREATED AUTHOR AUTHOR'S ORGANIZ ATION 04/12/2024 [facility] DATE CREATED AUTHOR AUTHOR'S ORGANIZ ATION 04/15/2024 [facility] Source Comments (unrecognize d section and content) In the event this informatio n is protected by the Federal Confidentiality of Alcohol and Drug Abuse Patient Records regulations: The Federal rules restrict any use of the information to criminally investigate or prosecute any alcohol or drug abuse patient.[facility] the event this information is protected by the Federal Confidentiality of Alcohol and Drug Abuse Patient Records regulations: The Federal rules restrict any use of the information to criminally investigate or prosecute any alcohol or drug abuse patient.[facility] the event this information is protected by the Federal Confidentiality of Alcohol and Drug Abuse Patient Records regulations: The Federal rules restrict any use of the information to criminally investigate or prosecute any alcohol or drug abuse patient.[facility] Center[facility] the event this information is protected by the Federal Confidentiality of Alcohol and Drug Abuse Patient Records regulations: The Federal rules restrict any use of the information to criminally investigate or prosecute any alcohol or drug abuse patient.[facility] Center[facility] the event this information is protected by the Federal Confidentiality of Alcohol and Drug Abuse Patient Records regulations: The Federal rules restrict any use of the information to criminally investigate or prosecute any alcohol or drug abuse patient.[facility] Center[facility] the event this information is protected by the Federal Confidentiality of Alcohol and Drug Abuse Patient Records regulations: The Federal rules restrict any use of the information to criminally investigate or prosecute any alcohol or drug abuse patient.[facility] Reason for Visit (unrecogniz ed section and content) Reason Comments Post Op Reason Comments Medication Problem Reason Onset Date Comments No Show 12/24/2022 No show Reason Comments Radiology CT Reason Onset Date Comments Med Refill 11/09/2023 Reason Comments Med Refill Reason Onset Date Comments Med Refill 12/11/2023 Care Teams (unrecognized sec tion and content) Head Of Marketing Adometry Relationship Specialty Start Date End Date Ellen Crabtree [address] [place] [phone] PCP - General 06/10/02 Head Of Marketing Adometry Relationship Specialty Start Date End Date Ellen Crabtree DO PCP - General Family Medicine 01/23/22 Head Of Marketing Adometry Relationship Specialty Start Date End Date Ellen Crabtree [address] [place] [phone] PCP - General 06/10/02 Head Of Marketing Adometry Relationship Specialty Start Date End Date Ellen Crabtree [address] [place] [phone] PCP - General 06/10/02 Head Of Marketing Adometry Relationship Specialty Start Date End Date Ellen Crabtree [address] [place] [phone] PCP - General 06/10/02 Head Of Marketing Adometry Relationship Specialty Start Date End Date Ellen Crabtree [address] [place] [phone] PCP - General 06/10/02 Head Of Marketing Adometry Relationship Specialty Start Date End Date Ellen Crabtree [address] [place] [address] PCP - General 06/10/02 Head Of Marketing Adometry Relationship Specialty Start Date End Date Ellen Crabtree DO [address] [place] [address] PCP - General Family Medicine 01/17/21 Head Of Marketing Adometry Relationship Specialty Start Date End Date Ellen Crabtree DO [address] [place] [address] PCP - General Family Medicine 01/17/21 Head Of Marketing Adometry Relationship Specialty Start Date End Date Ellen Crabtree DO [address] [place] [address] PCP - General Family Medicine 01/17/21 Team Status: Active Member Role Status Dates Andrés Bowedn Specialist Active Ren Watson MD Specialist Active Graciela Macias LPN Care Manager Active Fidel Ibarra MD Specialist Active Ellen Crabtree DO Primary Care Provider Active Team Status: Inactive Member Role Status Dates Ellen Crabtree DO Attending Provider Active Start: November 10, 2023 End: November 10, 2023 Team Status: Active Member Role Status Dates Ellen Crabtree DO Primary Care Provider Active Sta rt: January 06, 2024 Graciela Macias LPN Attending Provider Active Sta rt: January 06, 2024 Team Status: Inactive Member Role Status Dates Ellen Crabtree DO Primary Care Provider Active Sta rt: January 22, 2024 End: January 22, 2024 Bernice Shrestha DO Attending Provider Active St art: January 22, 2024 End: January 22, 2024 Team Status: Inactive Member Role Status Dates Ellen Crabtree DO Primary Care Provide r, Attending Provider Active Start: February 10, 2024 End: February 10, 2024 Team Status: Inactive Member Role Status Dates Ellen Crabtree DO Primary Care Provider Active Sta rt: February 11, 2024 End: February 11, 2024 Bernice Shrestha DO Attending Provider Active St art: February 11, 2024 End: February 11, 2024 Team Status: Active Member Role Status Dates Ellen Crabtree DO Primary Care Provider Active Sta rt: February 11, 2024 Bernice Shrestha DO Attending Provider, Other Provider Active Start: [...] dose on Thu02/07/22 at 2100, Until Discontinued 2107 (Given - Provider: Peace Sol RN) 2019 (Given - Provider: Gladis Lezama RN) 2099 (Due) bisacodyl (DULCOLAX) EC tablet 5 mg [...] Sol RN)1344 (Given - Provider: Marion Sharma, FOSTER)1805 (Given - Provider: Marion Sharma, FOSTER)2219 (Given - Provider: Gladis Lezama RN) 0222 (Given - Provider: Gladis Lezama RN)1400 (Due)1800 (Due)2200 (Due) carbidopa-levodopa (SINEMET CR) 25-100 MG per extended release tablet 2 tablet(Linked Group 1) 2 tablet, Oral, 2 TIMES DAILY, First dose on Thu02/08/22 at 0600, Until Discontinued, Do Not Crush or Chew 0617 (Given - Provider: Lyn Hammond, FOSTER)0857 (Given - Provider: Malik De La Garza RN) 0518 (Given - Provider: Peace Sol RN)0942 (Given - Provider: Marion Sharma RN) 0533 (Given - Provider: Gladis Lezama RN)1000 (Given - Provider: Nevaeh Oviedo, FOSTER) carbidopa-levodopa (SINEMET) 25-100 MG per tablet 1 tablet 1 tablet, Oral, 3 TIMES DAILY, First dose on Thu02/13/22 at 1800, Until Discontinued, Takes at 1400, 1800, and 2200 1355 (Given - Provider: Malik De La Garza, RN)1729 (Given - Provider: Malik De La Garza, FOSTER)2110 (Given - Provider: Peace Sol RN) 1344 (Given - Provider: Marion Sharma, RN)1805 (Given - Provider: Marion Sharma, RN)2219 (Given - Provider: Gladis Lezama RN) 1400 (Due)1800 (Due)220 (Due) carbidopa-levodopa (SINEMET) 25-100 MG per tablet 2 tablet 2 tablet, Oral, 2 TIMES DAILY, First dose on Thu02/14/22 at 0600, Until Discontinued, Takes at 0600 and 1000 0617 (Given - Provider: Lyn Hammond RN)0857 (Given - Provider: Malik De La Garza RN) 0518 (Given - Provider: Peace Sol RN)0942 (Given - Provider: Marion Sharma, FOSTER) 0533 (Given - Provider: Gladis Lezama RN)1000 [...] Until Discontinued 2109 (Given - Provider: Peace Sol, RN) 2018 (Given - Provider: Gladis Lezama [...] 250-349 2 Units Over 350 3 Units 211 (Not Given - Provider: Peace Sol RN - Reason: Order parameters not met - Comment: 116) 2019 (Not Given - Provider: Gladis Lezama RN - Reason: Order parameters not met) 2100 (Due) insulin lispro (HUMALOG) injection vial 0-6 [...] RN) 0942 (Given - Provider: Marion Sharma, FOSTER)1144 (Given - Provider: Mairon Sharma, FOSTER)1806 (Given - Provider: Marion Sharma RN) 0855 [...] Sharma RN) 0849 (Given - Provider: Nevaeh Oviedo RN) polyethylene glycol (GLYCOLAX) packet 17 g [...] reorder) on Thu02/07/22 at 2100, Until Discontinued 0858 (Given - Provider: Malik De La Garza RN)2110 (Given - Provider: Peace Sol RN) 0942 (Given - Provider: Marion Sharma, RN)2019 (Given - Provider: Gladis Lezama RN) 0851 (Given - Provider: Nevaeh Oviedo, RN)2099 (Due) QUEtiapine (SEROQUEL) tablet 25 mg [...] 0859 (Given - Provider: Malik De La Garza, FOSTER)2111 (Given - Provider: Peace Sol, RN) 0949 (Given - Provider: Marion Sharma, RN)2019 (Given - Provider: Gladis Lezama, RN) 0857 (Not Given - Provider: Nevaeh [...] RN) 0942 (Given - Provider: Marion Sharma, FOSTER) 0849 (Given - Provider: Nevaeh Oviedo, RN) [...] PRN, Other, Hypoglycemia, Starting on Thu02/11/22 at 205, Sub for D50% If patient NPO, unconscious [...] Garza RN) 0518 (Given - Provider: Peace Sol, RN)1346 (Given - Provider: Marion Sharma, RN)2004 (Given - Provider: Gladis Lezama RN) [...] RN)1346 (See Alternative - Provider: Marion Sharma, FOSTER)2004 (See Alternative - Provider: Gladis Lezama RN) 0531 (See Alternative - Provider: Gladis Lezama, FOSTER)1145 (See Alternative - Provider: Nevaeh Oviedo, RN) sodium chloride flush 0.9 % injection [...] Oral, EVERY 6 HOURS PRN, Starting on Thu02/08/22 at 2130, Until Discontinued, Pain Moderate (4-6), [...] BE BASED ON THE PRIMARY CLINICAL RECORDS. [facility] Information Assurance [facility]. provides no warranty or guarantee of the accuracy or completeness of information in this document.
[2024-04-23] MEDS: LACTATED RINGER'S SOLUTION 1,000 ML 80 ML IV (21:15)
[2024-04-23] MEDS: PIPERACILLIN SODIUM/TAZOBACTAM 3.375 GM in 0.9 % SODIUM CHLORIDE 50 ML IV (21:15)
[2024-04-23] MEDS: ENOXAPARIN SODIUM 40 MG/0.4 ML SYRINGE SUBQ (21:15)
[2024-04-24] VITALS (21 sets, daily range): BP systolic 78–98; BP diastolic 47–54; PULSE 59–81; TEMP 36.6–37.6; O2SAT 94–99
[2024-04-24 01:46] LABS: A. calcoaceticus-baumannii Cpx NOT DETECTED (NOT DETECTE); Bacteroides fragilis NOT DETECTED (NOT DETECTE); Candida albicans NOT DETECTED (NOT DETECTE); Candida auris NOT DETECTED (NOT DETECTE); Candida glabrata NOT DETECTED (NOT DETECTE); Candida krusei NOT DETECTED (NOT DETECTE); Candida parapsilosis NOT DETECTED (NOT DETECTE); Candida tropicalis NOT DETECTED (NOT DETECTE); Cryptococcus neoformans/gattii NOT DETECTED (NOT DETECTE); Enterococcus faecalis NOT DETECTED (NOT DETECTE); Enterococcus faecium NOT DETECTED (NOT DETECTE); Haemophilus influenzae NOT DETECTED (NOT DETECTE); Klebsiella aerogenes NOT DETECTED (NOT DETECTE); Klebsiella pneumoniae group NOT DETECTED (NOT DETECTE); Listeria monocytogenes NOT DETECTED (NOT DETECTE); Neisseria meningitidis NOT DETECTED (NOT DETECTE); Proteus spp. NOT DETECTED (NOT DETECTE); Pseudomonas aeruginosa NOT DETECTED (NOT DETECTE); Salmonella spp. NOT DETECTED (NOT DETECTE); Serratia marcescens NOT DETECTED (NOT DETECTE); Staphylococcus epidermidis NOT DETECTED (NOT DETECTE); Staphylococcus lugdunensis NOT DETECTED (NOT DETECTE); Staphylococcus spp. NOT DETECTED (NOT DETECTE); Stenotrophomonas maltophilia NOT DETECTED (NOT DETECTE); Streptococcus agalactiae NOT DETECTED (NOT DETECTE); Streptococcus pneumoniae NOT DETECTED (NOT DETECTE); Streptococcus pyogenes NOT DETECTED (NOT DETECTE); Streptococcus spp. NOT DETECTED (NOT DETECTE)
[2024-04-24 03:16] LABS: CTX-M NOT DETECTED (NOT DETECTE); IMP NOT DETECTED (NOT DETECTE); KPC NOT DETECTED (NOT DETECTE)
[2024-04-24 03:17] LABS: Enterobacterales DETECTED (NOT DETECTE); NDM NOT DETECTED (NOT DETECTE); OXA-48-like NOT DETECTED (NOT DETECTE); Source Blood; VIM NOT DETECTED (NOT DETECTE); mcr-1 NOT DETECTED (NOT DETECTE)
[2024-04-24 03:18] LABS: Enterobacter cloacae complex DETECTED (NOT DETECTE)
[2024-04-24 04:12] LABS: Glucometer 102 mg/dL (74-106)
--- NOTE | 2024-04-24 05:00 | XR_ITS ---
[address] [address] Patient Name: ALISIA CORREA MRN: [id number] date: 1960 Sex: M Assigned Patient Location: ICU Current Patient Location: ICU Accession/Order Number: [id number] Exam Date: 04/24/2024 05:15 Report Date: 04/24/2024 12:36 At the request of: KARLEY GAMINO Procedure: XR chest 1V EXAM: XR chest 1V HISTORY: SOB COMPARISON: 04/23/2024 FINDINGS/IMPRESSION: 1. Mild atelectasis at the left lung base. Right lung is clear. 2. No pneumothorax. No pleural effusion. 3. Heart size and mediastinal contours are normal 4. No acute osseous abnormality. Lower cervical spine ACDF hardware. No apparent hardware complication. Left shoulder arthroplasty hardware. No apparent hardware complication. 5. Upper abdominal bowel gas pattern is nonspecific. Electronically authenticated by: SHARON HEARD Date: 04/24/2024 12:36
[2024-04-24 05:10] LABS: Hematocrit 25.9 % (42.0-54.0); Hemoglobin 8.2 g/dL (14.0-18.0); Mean Corpuscular HGB Conc 31.7 g/dL (29.9-35.2); Mean Corpuscular Volume 91.5 fL (80.0-94.0); Mean Platelet Volume 12.8 fL (9.5-13.5); Platelet Count 195 10^3/uL (150-450); Red Blood Count 2.83 10^6/uL (4.70-6.10); Red Cell Distribution Width 14.6 % (11.0-15.0)
[2024-04-24] MEDS: PIPERACILLIN SODIUM/TAZOBACTAM 3.375 GM in 0.9 % SODIUM CHLORIDE 50 ML IV ×3 (05:10→21:02)
[2024-04-24] MEDS: CARBIDOPA/LEVODOPA 25 MG-100 MG TABLET 2 TAB PO ×2 (05:10→09:53)
[2024-04-24] MEDS: CARBIDOPA/LEVODOPA CR 25-100 MG TABLET 1 TAB PO ×4 (05:10→21:35)
[2024-04-24 05:18] LABS: White Blood Count 37.6 10^3/uL (4.0-11.0)
[2024-04-24 05:30] LABS: Band Neutrophils Absolute 1.9 10^3/uL (0.0-0.3)
[2024-04-24 05:31] LABS: Lymphocytes Absolute Manual 0.37 10^3/uL (1.20-3.80); Monocytes Absolute Manual 0.37 10^3/uL (0.30-0.80); Segmented Neut Absolute Manual 34.96 10^3/uL (1.4-6.5)
[2024-04-24 05:39] LABS: Alanine Aminotransferase <6 U/L (16-63); Albumin Globulin Ratio 0.5; Albumin Level 1.8 g/dL (3.4-5.0); Alkaline Phosphatase 95 U/L (46-116); Anion Gap 11.3; Aspartate Amino Transferase 10 U/L (15-37); BUN Creatinine Ratio 29.2; Bilirubin Total 0.7 mg/dL (0.2-1.0); Calcium 7.9 mg/dL (8.5-10.1); Carbon Dioxide 23.5 mmol/L (21.0-32.0); Chloride 111 mmol/L (98-107); Estimated GFR (African America 40 (>=60); Estimated GFR (Non-African Ame 33 (>=60); Globulin 3.7 g/dL; Glucose 97 mg/dL (74-106); Potassium 3.8 mmol/L (3.5-5.1); Sodium 142 mmol/L (136-145); Total Protein 5.5 g/dL (6.4-8.2)
--- NOTE | 2024-04-24 05:49 | CT_ITS ---
[address] [address] Patient Name: ALISIA CORREA MRN: [id number] date: 1960 Sex: M Assigned Patient Location: ICU Current Patient Location: ICU Accession/Order Number: [id number] Exam Date: 04/24/2024 08:40 Report Date: 04/24/2024 09:43 At the request of: KAYCE DOWNEY Procedure: CT abdomen pelvis wo con EXAM: CT abdomen pelvis wo con INDICATION: sepsis with elevating WBC. COMPARISON: CT abdomen pelvis 09/19/2023. TECHNIQUE: Multiple contiguous axial CT images of the abdomen and pelvis were obtained without the use of intravenous contrast. Sagittal and coronal reconstructions were performed. Dose reduction techniques were achieved by using: automated exposure control and/or adjustment of mA and /or kV according to patient size and/or use of iterative reconstruction technique. FINDINGS: Evaluation of visceral organs limited by noncontrast technique. LOWER CHEST: Stable chronic elevation of the left hemidiaphragm. ABDOMEN AND PELVIS: LIVER: Unremarkable. BILIARY SYSTEM: Distended gallbladder. No biliary ductal dilatation. PANCREAS: Unremarkable. SPLEEN: Small calcified granuloma. ADRENAL GLANDS: Normal. URINARY SYSTEM: Moderate right hydroureteronephrosis. Distal ureters and posterior bladder not visualized due to metallic streak artifact from the hip arthroplasties. Retained contrast in the right kidney and right renal collecting system. Suprapubic catheter in place. Decompressed bladder with stable chronic circumferential wall thickening. REPRODUCTIVE: Prostate brachytherapy seeds in place. GASTROINTESTINAL TRACT: Changes of gastric bypass. Normal caliber bowel without wall thickening or inflammation. Colonic diverticulosis without diverticulitis. Normal appendix. VESSELS: Nonaneurysmal abdominal aorta with mild atherosclerotic calcifications. LYMPH NODES: No adenopathy. PERITONEUM: No ascites or pneumoperitoneum. MUSCULOSKELETAL: SOFT TISSUES: Bilateral gynecomastia. BONES: No acute osseous abnormality or suspicious osseous lesion. Posterior lumbar spine fusion changes and bilateral hip arthroplasties noted. Thoracic neurostimulator device in place. MORAN: (series:image) CT/CT abdomen pelvis wo con IMPRESSION: 1. Moderate right hydroureteronephrosis. Obscured distal ureters and posterior bladder by metallic streak artifact from hip arthroplasties precluding identifying cause of obstruction. 2. Colonic diverticulosis without diverticulitis. Electronically authenticated by: MILES CAMPOS Date: 04/24/2024 09:43
[2024-04-24] MEDS: MIDODRINE HCL 5 MG TABLET 10 MG PO ×3 (06:22→17:08)
[2024-04-24 06:36] LABS: Lactate/Lactic Acid 1.9 mmol/L (0.4-2.0)
[2024-04-24 06:59] LABS: PROCALCITONIN 66.17 ng/mL (0.00-0.50)
[2024-04-24] MEDS: FLUDROCORTISONE ACETATE 0.1 MG TABLET PO (09:15)
[2024-04-24] MEDS: MONTELUKAST SODIUM 10 MG TABLET PO (09:15)
[2024-04-24] MEDS: ACARBOSE 50 MG TABLET 25 MG PO ×3 (09:16→17:05)
[2024-04-24] MEDS: DICLOFENAC SODIUM 25 MG TABLET.DR 75 MG PO ×2 (09:16→17:06)
[2024-04-24] MEDS: MIDODRINE HCL 5 MG TABLET PO (09:16)
[2024-04-24] MEDS: PREGABALIN 100 MG CAPSULE 300 MG PO ×2 (09:17→17:05)
[2024-04-24] MEDS: TOPIRAMATE 100 MG TABLET PO ×2 (09:17→17:05)
[2024-04-24] MEDS: SOLIFENACIN SUCCINATE 10 MG TABLET PO (09:17)
[2024-04-24] MEDS: VENLAFAXINE HCL ER 150 MG CAPSULE PO (09:17)
[2024-04-24] MEDS: LACTATED RINGER'S SOLUTION 1,000 ML 80 ML IV ×2 (09:18→21:01)
[2024-04-24] MEDS: DOCUSATE SODIUM 100 MG CAPSULE PO (09:18)
--- NOTE | 2024-04-24 11:49 | CA_ITS ---
Patient Name: ALISIA CORREA MR#: [id number] : 1960 Exam Date: 04/25/2024 Ordering Doctor: DR KARLEY GAMINO . ECHOCARDIOGRAM REPORT PROCEDURE: CA ECHO DOPPLER COMPLETE INDICATIONS: SOB, elevated BNP, diabetes COMPARISON: None. DESCRIPTION: COMPLETE ECHOCARDIOGRAM Real-time transthoracic echocardiography with 2D, M-mode, spectral and color flow Doppler performed. QUALITY: Technical quality was good. LEFT VENTRICLE: Normal chamber size. Thickened septal wall. LV EF: Global left ventricular systolic function is normal; visually estimated ejection fraction is 60 to 65%. No obvious wall motion abnormalities. DIASTOLIC: Normal diastolic function. ATRIAL SEPTUM: Inadequately seen. LEFT ATRIUM: Normal chamber size. RIGHT ATRIUM: Normal chamber size. RIGHT VENTRICLE: Normal chamber size. Normal right ventricular systolic function. TRICUSPID VALVE: Normal mobility and thickness. No stenosis with trivial regurgitation. No evidence of pulmonary hypertension. RVSP 33 mmHg MITRAL VALVE: Normal mobility and thickness. No evidence of mitral valve stenosis. There is no mitral annular calcification. Mild mitral regurgitation. AORTIC VALVE: Normal trileaflet appearance. No visible sclerosis. Normal leaflet mobility. No evidence of aortic valve stenosis. No aortic regurgitation. AORTIC ROOT: Mildly dilated. PULMONIC VALVE: Normal thickness and mobility. No stenosis. PERICARDIUM: No evidence of pericardial effusion. IVC: Collapses with inspirations. CONCLUSION: 1. Global left ventricular systolic function is normal; visually estimated ejection fraction is 60 to 65% 2. Normal right ventricular size and systolic function 3. Normal diastolic function 4. Mild mitral regurgitation 5. Mildly enlarged aortic root Adult Echocardiography Procedure Report Left Ventricle LVEDD (3.7 - 5.6 cm): 4.39 cm LVESD (2.2 - 4.0 cm): 2.91 cm LVIVS thickness (0.6 - 1.2 cm): 1.42 cm LVPW thickness (0.5 - 1.0 cm): 0.95 cm e': 0.10 m/s E - e': 7.21 LVOT Max Gradient: 3.16 mm[Hg] LVOT Area (cm2): 0.89 m/s Peak Velocity (LVOT): 0.89 m/s Mean Velocity (LVOT): 0.52 m/s LVOT Diameter 2.53 cm Left Atrium LA Volume Index (2D A2C): 32.39 ml/m2 Left Atrium Systolic Dimension: 3.53 cm Mitral Valve MV E to A Ratio: 0.96 Mitral Valve A-Wave Peak Velocity: 0.77 m/s Mitral Valve E-Wave Peak Velocity: 0.74 m/s Right Ventricle Aorta AO Root Diam: 3.86 cm Aortic Valve AoV Area (Peak Mehrdad): 4.79 cm2, 4.79 cm2 AoV Area (VTI): 4.95 cm2, 4.95 cm2 Peak Velocity(Antegrade Flow): 0.93 m/s Peak Gradient(Antegrade Flow): 3.49 mm[Hg] Mean Velocity(Antegrade Flow): 0.63 m/s Mean Gradient(Antegrade Flow): 1.80 mm[Hg] Velocity Time Integral: 21.60 cm Tricuspid Valve Peak Velocity (Regurgitant Flow): 2.71 m/s, 2.76 m/s Pulmonic Valve Mean Gradient: 1.08 mm[Hg] Mean Velocity: 0.46 m/s Peak Velocity: 0.81 m/s, 0.89 m/s Peak Gradient: 2.65 mm[Hg], 3.13 mm[Hg] Right Atrium Right Atrium Systolic Pressure: 31.81 ml, 31.81 ml Dictated by: Michelle Dominguez M.D. on 04/25/2024 at 15:33 Approved by: Michelle Dominguez M.D. on 04/25/2024 at 15:37
[2024-04-24 13:00] LABS: Glucometer 105 mg/dL (74-106)
--- NOTE | 2024-04-24 13:15 | P.HP_ITS ---
HPI H&P: HPI History of Present Illness Chief complaint: SEPSIS/UTI/SOB Narrative: 63 y/o male with a history of Parkinson's presents to ER with weakness and SOB. Patient with suprapubic catheter and concerned of UTI. Patient confused and not as alert. To ER and noted tachycardia with low BP. WBC elevated at 15 and UA showed UTI. Lactate and BNP elevated. Gave IV fluids but not full 30 mL/kg due to concern of fluid overload and CHF. CTA negative. Admitted for treatment. Started IV fluids and zosyn. Resumed home medication including scheduled midodrine. Feels better this am and more alert. BP remains low. WBC elevated and CT abdomen ordered. Opioid HPI Opioid Management Most Recent Pain and Opioid Data: Last Pain Scale 3 04/24/24 08:00 Last Pain Assessment 04/24/24 11:00 Last ED Pain Assessment 04/23/24 15:23 Last ORT Total Score 0 04/23/24 20:47 Last ORT Risk Category Low Risk 04/23/24 20:47 Review of Systems ROS Constitutional Reports: fatigue; Denies: fever or chills Cardiovascular Denies: chest pain, palpitations, edema or lightheadedness Respiratory Reports: shortness of breath; Denies: cough or wheezing Gastrointestinal Denies: abdominal pain, nausea, vomiting or diarrhea Genitourinary Denies: painful urination [facility] Medical History (Updated 04/24/24 @ 13:22 by Jose Alejandro House MD) Urinary tract infection ?N39.0 - Urinary tract infection, site not specified (ICD-10) Complication, blocked Ferro catheter ?T83.091A - Other mechanical complication of indwelling urethral catheter, initial encounter (ICD-10) UTI (urinary tract infection) ?N39.0 - Urinary tract infection, site not specified (ICD-10) Bladder infection, chronic ?N30.20 - Other chronic cystitis without hematuria (ICD-10) Weakness of both lower extremities ?R29.898 - Other symptoms and signs involving the musculoskeletal system (ICD-10) Neurogenic bladder ?N31.9 - Neuromuscular dysfunction of bladder, unspecified (ICD-10) Neuropathy ?G62.9 - Polyneuropathy, unspecified (ICD-10) Tonsillectomy planned FH: bilateral hip replacements ?Z82.69 - Family history of other diseases of the musculoskeletal system and connective tissue (ICD-10) Enlarged prostate ?N40.0 - Benign prostatic hyperplasia without lower urinary tract symptoms (ICD-10) 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, unspecified (ICD-10) 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 - Malignant (primary) neoplasm, unspecified (ICD-10) Esophageal cancer ?C15.9 - Malignant neoplasm of esophagus, unspecified (ICD-10) Barretts esophagus ?K22.70 - Rust's esophagus without dysplasia (ICD-10) GERD without esophagitis ?K21.9 - Gastro-esophageal reflux disease without esophagitis (ICD-10) Asthma ?J45.909 - Unspecified asthma, uncomplicated (ICD-10) Pneumonia ?J18.9 - Pneumonia, unspecified organism (ICD-10) COVID-19 ?U07.1 - COVID-19 (ICD-10) Kidney stones ?N20.0 - Calculus of kidney (ICD-10) Bladder stones ?N21.0 - Calculus in bladder (ICD-10) Type 2 diabetes mellitus ?E11.9 - Type 2 diabetes mellitus without complications (ICD-10) Hypotension ?I95.9 - Hypotension, unspecified (ICD-10) Surgical History (Updated 08/06/23 @ 08:15 by Jorge Contreras) H/O cystoscopy ?Z98.890 - Other specified postprocedural states (ICD-10) S/P insertion of spinal cord stimulator ?Z96.89 - Presence of other specified functional implants (ICD-10) Status post right rotator cuff repair ?Z98.890 - Other specified postprocedural states (ICD-10) H/O hand surgery ?Z98.890 - Other specified postprocedural states (ICD-10) History of left knee replacement ?Z96.652 - Presence of left artificial knee joint (ICD-10) History of left shoulder replacement ?Z96.612 - Presence of left artificial shoulder joint (ICD-10) Previous back surgery ?Z98.890 - Other specified postprocedural states (ICD-10) H/O gastric bypass ?Z98.84 - Bariatric surgery status (ICD-10) Family History (Updated 08/20/23 @ 20:33 by Barbara Mauro RN) Mother Family history of hypertension Family history of diabetes mellitus Family history of COPD (chronic obstructive pulmonary disease) Brother Family history of cancer Other Family history of CHF (congestive heart failure) Social History (Updated 08/20/23 @ 20:36 by Barbara Mauro RN) Within the past year, how often did you have a drink containing alcohol: never Within the past year, how often did you have six or more drinks on one occasion: never Score interpretation: A score less than 4 is consistent with normal alcohol consumption. Smoking status: Former smoker Highest level of school completed/degree received: some college, no degree Are you now , , , , never or living with a partner: In a typical week, how many times do you talk on the telephone with family, friends, or neighbors: 3 or more times per week How often do you get together with friends or relatives: 3 or more times per week Little interest or pleasure in doing things: several days Feeling down, depressed, or hopeless: several days Feel stressed/tense/nervous/anxious/difficulty sleeping: to some extent Do you think of yourself as: straight/heterosexual Gender Identity: male Meds Home Medications and Allergies Home Medications ?Medication ?Instructions ?Recorded ?Confirmed ?Type acarbose 25 mg tablet 25 mg PO TIDWM 08/20/23 04/24/24 History atorvastatin 10 mg tablet 10 mg PO .QHS 08/20/23 04/24/24 History carbidopa 25 mg-levodopa 100 mg 3 tab PO DAILY@0600 08/20/23 04/24/24 History tablet diclofenac sodium 75 mg 75 mg PO BID 08/20/23 04/23/24 History tablet,delayed release docusate sodium 100 mg capsule 100 mg PO DAILY PRN constipation 08/20/23 04/24/24 History ezetimibe 10 mg tablet 10 mg PO .QHS 08/20/23 04/24/24 History midodrine 5 mg tablet 15 mg PO DAILY 08/20/23 04/24/24 History montelukast 10 mg tablet 10 mg PO DAILY 08/20/23 04/24/24 History pregabalin 300 mg capsule 300 mg PO BID 08/20/23 04/23/24 History tolterodine 4 mg capsule,extended 4 mg PO DAILY 08/20/23 04/23/24 History release 24 hr topiramate 100 mg tablet 100 mg PO BID 08/20/23 04/23/24 History carbidopa ER 25 mg-levodopa 100 mg 2 tab PO BID@0600,1000 08/21/23 04/24/24 History tablet,extended release potassium citrate 15 mEq (1,620 15 meq PO .QHS 08/21/23 04/24/24 History mg) tablet,extended release carbidopa 25 mg-levodopa 100 mg 2 tab PO DAILY@1000 04/23/24 04/24/24 History tablet (Sinemet) ciclopirox 0.77 % topical cream 1 applic topical BID 04/23/24 04/24/24 History tramadol 50 mg tablet 50 mg PO Q6H PRN pain 04/23/24 04/23/24 History venlafaxine 150 mg 150 mg PO DAILY 04/23/24 04/23/24 History capsule,extended release 24 hr carbidopa 25 mg-levodopa 100 mg 1 tab PO TID 04/24/24 04/24/24 History tablet (Sinemet) carbidopa ER 25 mg-levodopa 100 mg 1 tab PO TID 04/24/24 04/24/24 History tablet,extended release duloxetine 60 mg capsule,delayed 60 mg PO .QHS 04/24/24 04/24/24 History release (Cymbalta) fludrocortisone 0.1 mg tablet 0.1 mg PO DAILY 04/24/24 04/24/24 History midodrine 5 mg tablet 10 mg PO TID 04/24/24 04/24/24 History Allergies Allergy/AdvReac Type Severity Reaction Status Date / Time clonazepam Allergy Severe Difficulty Verified 01/06/24 19:48 Breathing levofloxacin [From Levaquin] Allergy Severe Difficulty Verified 01/06/24 19:48 Breathing moxifloxacin Allergy Intermediate Hives Verified 01/06/24 19:48 celecoxib [From Celebrex] Allergy Mild Hives Verified 01/06/24 19:48 erythromycin base Allergy Mild Gastrointestinal Verified 01/06/24 19:48 Upset Exam Constitutional Vital Signs, click to edit/add: Last Vital Signs Temp 98.1 F 04/24/24 04:33 Pulse 71 04/24/24 08:00 Resp 20 04/24/24 04:33 BP 86/53 L 04/24/24 06:52 Pulse Ox 99 04/24/24 06:06 O2 Del Method Nasal Cannula 07/07/24 04:33 O2 Flow Rate 3 04/24/24 04:33 Documenting provider has reviewed patient's vital signs: yes Common normals: no apparent distress, oriented x3 and alert HENMT Common normals: normocephalic Eye Common normals: PERRL and EOMs intact bilaterally Respiratory Common normals: normal respiratory effort and clear to auscultation bilaterally Cardio Common normals: regular rate, regular rhythm, no gallops, no murmurs and no rub GI Common normals: Normal to inspection, nondistended, normoactive bowel sounds present and non-tender Extremity Common normals: no pedal edema Results Labs Labs: Short CBC 04/24/24 Range/Units 04:17 WBC 37.6 H* (4.0-11.0) 10^3/uL Hgb 8.2 L (14.0-18.0) g/dL Hct 25.9 L (42.0-54.0) % Plt Count 195 (150-450) 10^3/uL BMP 04/24/24 04:17 Sodium 142 Potassium 3.8 Chloride 111 H Carbon Dioxide 23.5 BUN 59.0 H Creatinine 2.02 H Glucose 97 Calcium 7.9 L Liver Function 04/24/24 Range/Units 04:17 Total Bilirubin 0.7 (0.2-1.0) mg/dL AST 10 L (15-37) U/L ALT <6 L (16-63) U/L Alkaline Phosphatase 95 (46-116) U/L Albumin 1.8 L (3.4-5.0) g/dL Urine 04/23/24 Range/Units 13:01 Urine Color Yellow (YELLOW) Urine Clarity Cloudy A (CLEAR) Urine pH 7.5 (5.0-9.0) Ur Specific [place] 1.020 (1.005-1.025) Urine Protein 100 A (NEG/TRACE) mg/dL Urine Glucose (UA) Negative (NEGATIVE) mg/dL ABG ABG results: 04/23/24 16:37 ABG pH 7.344 L ABG pCO2 35.7 ABG pO2 307.0 H ABG HCO3 19.4 L ABG O2 Saturation >100.0 ABG Base Excess -6.3 L Assessment and Plan Assessment and Plan (1) Sepsis: Qualifiers: Sepsis acute organ dysfunction status: with acute organ dysfunction Sepsis type: sepsis due to unspecified organism Severe sepsis acute organ dysfunction type: acute renal failure Severe sepsis shock status: without septic shock Acute renal failure type: unspecified Qualified Code(s): A41.9 - Sepsis, unspecified organism; R65.20 - Severe sepsis without septic shock; N17.9 - Acute kidney failure, unspecified (2) UTI (urinary tract infection) due to urinary indwelling catheter: Qualifiers: Indwelling urinary catheter type: unspecified Encounter type: initial encounter Qualified Code(s): T83.511A - Infection and inflammatory reaction due to indwelling urethral catheter, initial encounter; N39.0 - Urinary tract infection, site not specified (3) Acute kidney injury: (4) Hydronephrosis of right kidney: (5) Breath shortness: (6) 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 Blood culture positive and continue zosyn while awaiting sensitivity. CT abdomen showed hydronephrosis without discrete stone and check US kidneys and bladder. BP remains low and continue IV fluids. Check echo. Resume home medication and continue scheduled midodrine and sinemet. If developed fluid overload will need diuresis and likely levophed. Start PT/OT for weakness. Consult wound care. Plan for at least 2 midnights in hospital for inpatient necessary services. Urinary Catheter Management Urinary Catheter Management Straight: Cath placed during this visit: yes Urethral indwelling: Yes Reason for continuing: other continuation reason Insertion date: 04/23/24 Insertion time: 15:25 Suprapubic: Cath placed during this visit: no
[2024-04-24] MEDS: CARBIDOPA/LEVODOPA 25 MG-100 MG TABLET 1 TAB PO ×3 (13:33→21:44)
[2024-04-24 16:27] LABS: Glucometer 100 mg/dL (74-106)
[2024-04-24] MEDS: ENOXAPARIN SODIUM 40 MG/0.4 ML SYRINGE SUBQ (21:02)
[2024-04-24] MEDS: ATORVASTATIN CALCIUM 10 MG TABLET PO (21:35)
[2024-04-24] MEDS: DULOXETINE HCL 60 MG CAPSULE.DR PO (21:35)
[2024-04-24] MEDS: POTASSIUM CITRATE 10 MEQ ER TABLET PO (21:35)
[2024-04-24] MEDS: EZETIMIBE 10 MG TABLET PO (21:35)
[2024-04-24 21:48] LABS: Glucometer 119 mg/dL (74-106)
[2024-04-25] VITALS (138 sets, daily range): BP systolic 88–139; BP diastolic 57–79; PULSE 57–76; TEMP 36.3–36.7; O2SAT 89–97
[2024-04-25] MEDS: PIPERACILLIN SODIUM/TAZOBACTAM 3.375 GM in 0.9 % SODIUM CHLORIDE 50 ML IV (04:07)
[2024-04-25 04:57] LABS: Basophils Percent Auto 0.1 % (0.2-2.0); Eosinophils Absolute Auto 0.2 10^3/uL (0.0-0.7); Eosinophils Percent Auto 1.3 % (0.9-7.0); Immature Granulocytes Abs Auto 0.06 10^3/uL (0.00-0.03); Immature Granulocytes Pct Auto 0.4 % (0.0-0.5); Lymphocytes Absolute Auto 1.7 10^3/uL (1.2-3.8); Lymphocytes Percent Auto 12.3 % (20.5-60.0); Mean Corpuscular HGB Conc 31.4 g/dL (29.9-35.2); Mean Corpuscular Volume 89.2 fL (80.0-94.0); Mean Platelet Volume 12.9 fL (9.5-13.5); Monocytes Absolute Auto 0.8 10^3/uL (0.3-0.8); Neutrophils Percent Auto 79.9 % (43.0-75.0); Platelet Count 129 10^3/uL (150-450); Red Cell Distribution Width 14.8 % (11.0-15.0); White Blood Count 13.8 10^3/uL (4.0-11.0)
[2024-04-25 05:16] LABS: Hematocrit 22.3 % (42.0-54.0)
[2024-04-25 05:23] LABS: Alanine Aminotransferase <6 U/L (16-63); Albumin Globulin Ratio 0.5; Albumin Level 1.7 g/dL (3.4-5.0); Alkaline Phosphatase 95 U/L (46-116); Anion Gap 10.7; Aspartate Amino Transferase 14 U/L (15-37); BUN Creatinine Ratio 28.7; Bilirubin Total 0.4 mg/dL (0.2-1.0); Carbon Dioxide 24.2 mmol/L (21.0-32.0); Chloride 111 mmol/L (98-107); Estimated GFR (African America 39 (>=60); Estimated GFR (Non-African Ame 32 (>=60); Globulin 3.5 g/dL; Glucose 74 mg/dL (74-106); Potassium 3.9 mmol/L (3.5-5.1); Sodium 142 mmol/L (136-145); Total Protein 5.2 g/dL (6.4-8.2)
[2024-04-25] MEDS: CARBIDOPA/LEVODOPA 25 MG-100 MG TABLET 3 TAB PO (06:09)
[2024-04-25] MEDS: CARBIDOPA/LEVODOPA CR 25-100 MG TABLET 2 TAB PO ×2 (06:09→09:14)
--- NOTE | 2024-04-25 08:00 | US_ITS ---
[address] [address] Patient Name: ALISIA CORREA MRN: [id number] date: 1960 Sex: M Assigned Patient Location: ICU Current Patient Location: ICU Accession/Order Number: [id number] Exam Date: 04/25/2024 08:16 Report Date: 04/25/2024 09:23 At the request of: KARLEY GAMINO Procedure: US renal bladder EXAMINATION: US renal bladder HISTORY: right hydronephrosis COMPARISON: 04/24/2024 CT exam TECHNIQUE: Ultrasound examination was performed of the bladder. FINDINGS: Right Kidney: Prominent in size. Moderate hydronephrosis. The cortex measures 1.4 cm. No solid cortical mass or obstructing nephrolithiasis Height: 6.42 cm Length: 14.69 cm Width: 6.25 cm Left Kidney: Normal in size and contour. The cortex measures 1.1 cm. No solid cortical mass hydronephrosis or obstructing nephrolithiasis Height: 5.84 cm Length: 11.57 cm Width: 5.82 cm Urinary bladder: The wall measures 3.5 mm, normal. Layering echogenic foci with acoustic shadowing measuring 1 cm, calcification. Balloon catheter Ureteral jets: Visualized bilaterally US/US renal bladder IMPRESSION: 1 cm echogenic focus dependent urinary bladder, passed stone versus bladder wall calcification, nonspecific Moderate right hydronephrosis Electronically authenticated by: LIZETH MCDONOUGH Date: 04/25/2024 09:23
[2024-04-25] MEDS: PREGABALIN 100 MG CAPSULE 300 MG PO ×2 (09:13→17:12)
[2024-04-25] MEDS: VENLAFAXINE HCL ER 150 MG CAPSULE PO (09:14)
[2024-04-25] MEDS: MONTELUKAST SODIUM 10 MG TABLET PO (09:15)
[2024-04-25] MEDS: TOPIRAMATE 100 MG TABLET PO ×2 (09:15→17:10)
[2024-04-25] MEDS: ACARBOSE 50 MG TABLET 25 MG PO ×2 (09:15→17:10)
[2024-04-25] MEDS: FLUDROCORTISONE ACETATE 0.1 MG TABLET PO (09:15)
[2024-04-25] MEDS: SOLIFENACIN SUCCINATE 10 MG TABLET PO (09:15)
[2024-04-25] MEDS: DICLOFENAC SODIUM 25 MG TABLET.DR 75 MG PO ×2 (09:16→17:12)
[2024-04-25] MEDS: MIDODRINE HCL 5 MG TABLET 15 MG PO (09:17)
[2024-04-25] MEDS: CARBIDOPA/LEVODOPA 25 MG-100 MG TABLET 2 TAB PO (09:22)
[2024-04-25] MEDS: CEFTRIAXONE 1,000 MG in 0.9 % SODIUM CHLORIDE 50 ML 100 MG IV (10:30)
[2024-04-25] MEDS: 0.9 % SODIUM CHLORIDE 250 ML 100 ML IV (10:37)
[2024-04-25] MEDS: ACETAMINOPHEN 500 MG TABLET 1000 MG PO ×2 (10:40→21:40)
[2024-04-25] MEDS: DIPHENHYDRAMINE HCL 25 MG CAPSULE PO (10:40)
[2024-04-25] MEDS: ACETAMINOPHEN 325 MG TABLET 650 MG PO (10:42)
--- NOTE | 2024-04-25 11:07 | SWNOTE1 ---
SW attempted to see pt, but pt was having an ECHO done. SW to stop back in later today.
--- NOTE | 2024-04-25 11:23 | PM.PN ---
Progress Note: Subjective Subjective Interval history: Patient stable this am. C/o fatigue and increased weakness. BP low but stable. Noticed increased edema in legs. WBC much improved but still slightly elevated. Hgb decreased to 7. Renal function remains abnormal. CT showed right hydronephrosis and US ordered. Reports history of stones and prior lithotripsy. Decreased appetite but no emesis or diarrhea. No chest pain or palpitations. Exam Constitutional Vital Signs, click to edit/add: Last Vital Signs Temp 97.8 F 04/24/24 20:00 Pulse 65 04/25/24 10:00 Resp 12 04/25/24 06:40 BP 103/60 04/25/24 06:18 Pulse Ox 93 L 04/25/24 10:59 O2 Del Method Room Air 04/25/24 10:59 O2 Flow Rate 3 04/24/24 04:33 Documenting provider has reviewed patient's vital signs: yes Common normals: no apparent distress, oriented x3 and alert HENMT Common normals: normocephalic Eye Common normals: PERRL and EOMs intact bilaterally Respiratory Common normals: normal respiratory effort and clear to auscultation bilaterally Cardio Common normals: regular rate, regular rhythm, no gallops, no murmurs and no rub GI Common normals: Normal to inspection, nondistended, normoactive bowel sounds present and non-tender Extremity General: edema (3+ pitting LE edema) Progress Note: Objective Labs Labs: Short CBC 04/25/24 Range/Units 04:16 WBC 13.8 H (4.0-11.0) 10^3/uL Hgb 7.0 L (14.0-18.0) g/dL Hct 22.3 L* (42.0-54.0) % Plt Count 129 L (150-450) 10^3/uL BMP 04/25/24 04:16 Sodium 142 Potassium 3.9 Chloride 111 H Carbon Dioxide 24.2 BUN 60.0 H Creatinine 2.09 H Glucose 74 Calcium 8.0 L Liver Function 04/25/24 Range/Units 04:16 Total Bilirubin 0.4 (0.2-1.0) mg/dL AST 14 L (15-37) U/L ALT <6 L (16-63) U/L Alkaline Phosphatase 95 (46-116) U/L Albumin 1.7 L (3.4-5.0) g/dL Progress Note: A&P Assessment and Plan (1) Sepsis: Qualifiers: Acute renal failure type: unspecified Sepsis acute organ dysfunction status: with acute organ dysfunction Sepsis type: sepsis due to unspecified organism Severe sepsis acute organ dysfunction type: acute renal failure Severe sepsis shock status: without septic shock Qualified Code(s): A41.9 - Sepsis, unspecified organism; R65.20 - Severe sepsis without septic shock; N17.9 - Acute kidney failure, unspecified (2) UTI (urinary tract infection) due to urinary indwelling catheter: Qualifiers: Encounter type: initial encounter Indwelling urinary catheter type: unspecified Qualified Code(s): T83.511A - Infection and inflammatory reaction due to indwelling urethral catheter, initial encounter; N39.0 - Urinary tract infection, site not specified (3) Acute kidney injury: (4) Hydronephrosis of right kidney: (5) Anemia in chronic illness: (6) Fluid overload: (7) 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: (8) Type 2 diabetes mellitus with diabetic polyneuropathy: (9) COPD (chronic obstructive pulmonary disease): (10) Suprapubic catheter: (11) Parkinson disease: (12) Generalized weakness: (13) Sacral decubitus ulcer: Plan Urine culture showed UTI due to C. braakii and E. cloacae complex both sensitive to zosyn and rocephin. Will stop zosyn and start rocephin. BP stable. Hgb low and give 2 units PRBC. Increased edema and start bumex drip. US with continued hydronephrosis and consult urology. Continue PT/OT for weakness. Monitor labs and vitals. Urinary Catheter Management Urinary Catheter Management Straight: Cath placed during this visit: yes Urethral indwelling: Yes Reason for continuing: other continuation reason Insertion date: 04/23/24 Insertion time: 15:25 Suprapubic: Cath placed during this visit: no
[2024-04-25] MEDS: BUMETANIDE 10 MG in 0.9 % SODIUM CHLORIDE 160 ML 20 MG IV (11:45)
--- NOTE | 2024-04-25 11:50 | SWNOTE1 ---
SW met with pt to discuss dc needs. Pt live at home with his . He has a power wheelchair at home that he mainly uses. He was getting up and walking with a walker small distances. His goal is to return to doing this, but he feels he needs strengthening at SNF to get there. Pt is open to going to rehab. SW provided pt with list from [employer] with star ratings. He voiced he would like the [facility] as first choice. SW asked permission to call his and talk to her as well. Pt would like SW to call . Pt does not have any other questions or concerns at this time. SW to call . Important Message from Medicare reviewed and discussed with patient. Pt. verbalized understanding and signed the form. Original given to patient and copy placed in patient?s chart.
--- NOTE | 2024-04-25 11:54 | SWNOTE1 ---
SW called , no answer, left message.
[2024-04-25 12:05] LABS: Glucometer 104 mg/dL (74-106)
--- NOTE | 2024-04-25 12:16 | CM.NOTE ---
Rounds made with Dr. House. Discussed labs, CT scan and Renal US results. Plan is for PRBC's and to get a urology consult. No plan for discharge today.
--- NOTE | 2024-04-25 12:40 | SWNOTE1 ---
SW stopped back in room and spoke to pt and . Pt's in agreement and she would does want him to go to SNF and would like [facility] as first choice and [facility] in rehab as second choice.
--- NOTE | 2024-04-25 13:13 | XR_ITS ---
The [address] [address] Patient Name: ALISIA CORREA MRN: [id number] date: 1960 Sex: M Assigned Patient Location: ICU Current Patient Location: ICU Accession/Order Number: [id number] Exam Date: 04/25/2024 13:30 Report Date: 04/25/2024 14:17 At the request of: ELAYNE BRIZUELA Procedure: XR abdomen 1V EXAM: XR abdomen 1V HISTORY: R/O kidney stone COMPARISON: CT abdomen and CT pelvis studies dated 04/24/2024 TECHNIQUE: AP supine view the abdomen was obtained with portable technique at 12:51 PM. FINDINGS: No obvious opaque renal, ureteral or bladder calculus. When reviewing recent CT study with window and level manipulation there is questionably identified a tiny 2 mm calculus in distal right ureter adjacent to the ureterovesicular junction on series 3 axial image 31 and series 5 coronal image 75 which could represent an obstructing calculus. Similar sized opacity is not identified on present study. Correlate clinically. Bowel gas pattern is grossly nonspecific. Postoperative changes at the expected location of the prostate gland. Postoperative clips on the left superiorly. Power pack seen on the right with leads directed cephalad in the image. Guuk-bw-vrumwagi degenerative changes in the lumbar spine with mild convexity to the right. Stabilizing rods and screws at the L3-S1 levels with post laminectomy changes. Bilateral hip prostheses are noted. XR/XR abdomen 1V IMPRESSION: No obvious opaque renal, ureteral or bladder calculus. Possibility of tiny faint calculus on reviewed recent CT study at the distal ureteral level near the UVJ may at least be considered as described. Similar sized opacity is not identified in the pelvis on present exam. Correlate clinically. Follow-up as needed. Electronically authenticated by: EUGENIO KASPER Date: 04/25/2024 14:17
--- NOTE | 2024-04-25 13:24 | SWNOTE1 ---
Referral sent to [facility]. Referral included face sheet, ED note, H&P, provider notes, case management report, nursing notes, diagnostic imaging, med list, and PT/OT notes.
[2024-04-25] MEDS: LACTATED RINGER'S SOLUTION 1,000 ML 80 ML IV (13:34)
[2024-04-25] MEDS: TRAMADOL HCL 50 MG TABLET PO ×2 (14:07→19:53)
[2024-04-25] MEDS: CARBIDOPA/LEVODOPA 25 MG-100 MG TABLET 1 TAB PO ×3 (14:07→21:41)
[2024-04-25] MEDS: CARBIDOPA/LEVODOPA CR 25-100 MG TABLET 1 TAB PO ×3 (14:08→21:41)
--- NOTE | 2024-04-25 15:06 | DIETREC ---
Recommend nutritional supplements: 237 mL Ensure Original BID, 30 mL PRO-stat BID, and 1 packet Matt BID. Nutrition assessment to follow.
[2024-04-25] MEDS: MIDODRINE HCL 5 MG TABLET 10 MG PO (17:09)
[2024-04-25] MEDS: ENOXAPARIN SODIUM 40 MG/0.4 ML SYRINGE SUBQ (19:44)
[2024-04-25 21:34] LABS: Glucometer 117 mg/dL (74-106)
[2024-04-25] MEDS: POTASSIUM CITRATE 10 MEQ ER TABLET PO (21:40)
[2024-04-25] MEDS: EZETIMIBE 10 MG TABLET PO (21:40)
[2024-04-25] MEDS: ATORVASTATIN CALCIUM 10 MG TABLET PO (21:41)
[2024-04-25] MEDS: DULOXETINE HCL 60 MG CAPSULE.DR PO (21:41)
[2024-04-26] VITALS (155 sets, daily range): BP systolic 95–131; BP diastolic 53–82; PULSE 54–80; TEMP 36.2–36.7; O2SAT 86–98
--- NOTE | 2024-04-26 | OP_ITS ---
OPERATION DATE: 04/26/2024 PREOPERATIVE DIAGNOSIS: 1. Right hydronephrosis with ureteral calculus. 2. Acute kidney injury. 3. Septic shock. 4. 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 POSTOPERATIVE DIAGNOSIS: 1. Right hydronephrosis with ureteral calculus. 2. Acute kidney injury. 3. Septic shock. 4. long-term suprapubic tube due to neurogenic bladder. PROCEDURE: 1. Cystoscopy. 2. Right retrograde pyelogram. 3. Right ureteroscopy. 4. Holmium laser lithotripsy and basket extraction right distal ureteral calculus. 5. Placement right double J stent under fluoroscopic guidance. 6. Change of suprapubic tube 24-Bahraini with 8 cc into the balloon. SURGEON: Quentin Yan M.D. COMPLICATIONS: None. ANESTHESIA: Dr. Mead, general LMA, 2% Xylocaine jelly per urethra. INDICATIONS: Mr. García is a 63-year-old white male, well known to Dr. Ibarra, who intermittently changes suprapubic catheter on a monthly basis. He does have a history of kidney stones. He has been hospitalized for three days or so with sepsis/UTI, and subsequently a CT scan was obtained demonstrating hydronephrosis on the right with a right distal ureteral stone and urologic consultation was requested. Recommendation made for operative intervention. This was scheduled as soon as it could be, secondary to his ongoing FLAVIA, elevated white count, UTI. The patient and his are fully aware of the risks, benefits and details of this procedure and they wish for me to proceed. They understand the risks of bleeding, infection, heart and lung problems under anesthesia, the need for possible additional intervention. PROCEDURE: He was then brought back to the operating room and a time out was performed. All were in agreement with the operative plan. After the successful induction of general anesthesia by Dr. Mead, he was placed in the modified dorsolithotomy position and prepped in the usual fashion with Betadine solution. He was draped appropriately and 2% Xylocaine jelly was placed per urethra. Suprapubic tube was clamped. Well lubricated 22-Bahraini cystourethroscope with 30 degree lens was then passed into the bladder without difficulty. I did have to dilate the urethra distally with Maris sounds. Once into the urethra, this was normal. Prostate was obstructing moderately, lateral lobe hypertrophy, high riding bladder neck. Once into the bladder, moderate catheter cystitis and the suprapubic tube was seen within the balloon. There were no tumors identified, but he did have perhaps a couple small stone fragments within the bladder itself. Gentle right retrograde pyelogram was performed and I felt there was a filling defect about 2 cm proximal to the right ureterovesical junction. There was a kink in the ureter at that location, with moderate ureteral dilatation proximal to it. I did not fully perform the retrograde pyelogram, so as not to push infected urine proximally, give his overall clinical state. I was initially unable to pass the 0.035 wire. Cystoscope was removed, and a semi-rigid ureteroscope was then passed up the right ureter. It appears there is a stone located right where the wire would not pass. I was able to negotiate past the stone and the stone was pushed a bit more proximally. I decided to perform laser lithotripsy. Safety wire was placed, ureteroscope removed, and then ureteroscope again replaced along side the wire. The stone was encountered and holmium laser was utilized to fracture this into 2-3 pieces, all of which were basketed free and sent to Pathology for evaluation. With the safety wire left in place, the ureteroscope was removed. Cystoscope was backloaded over the wire and a 6-Bahraini, 22-30 cm Dornier double J stent was passed into the right kidney. The wire removed, and there was good curl within the kidney and the urinary bladder. With the bladder partially full, the existing suprapubic catheter was removed and then replaced with a new 24-Bahraini with 8 cc in the balloon. Bladder emptied, scope removed, procedure terminated. He tolerates it well. He is transferred back to the ICU in satisfactory condition, stable vital signs. Discussed all this with the patient?s post- op and she is in agreement with the plan. JESS
[2024-04-26] MEDS: MORPHINE SULFATE 2 MG/ML SYRINGE IV ×2 (01:28→06:36)
[2024-04-26] MEDS: TRAMADOL HCL 50 MG TABLET PO (01:38)
[2024-04-26 01:45] LABS: Basophils Percent Auto 0.1 % (0.2-2.0); Eosinophils Absolute Auto 0.1 10^3/uL (0.0-0.7); Hematocrit 30.3 % (42.0-54.0); Hemoglobin 9.7 g/dL (14.0-18.0); Immature Granulocytes Abs Auto 0.07 10^3/uL (0.00-0.03); Immature Granulocytes Pct Auto 0.5 % (0.0-0.5); Lymphocytes Absolute Auto 1.3 10^3/uL (1.2-3.8); Lymphocytes Percent Auto 9.7 % (20.5-60.0); Mean Corpuscular Hemoglobin 28.1 pg (25.9-34.0); Mean Corpuscular Volume 87.8 fL (80.0-94.0); Mean Platelet Volume 12.1 fL (9.5-13.5); Monocytes Absolute Auto 0.7 10^3/uL (0.3-0.8); Monocytes Percent Auto 5.2 % (1.7-12.0); Neutrophils Absolute Auto 11.6 10^3/uL (1.4-6.5); Neutrophils Percent Auto 83.5 % (43.0-75.0); Platelet Count 140 10^3/uL (150-450); Red Blood Count 3.45 10^6/uL (4.70-6.10); Red Cell Distribution Width 15.8 % (11.0-15.0); White Blood Count 13.9 10^3/uL (4.0-11.0)
[2024-04-26 02:00] LABS: Alanine Aminotransferase <6 U/L (16-63); Albumin Globulin Ratio 0.5; Albumin Level 1.9 g/dL (3.4-5.0); Alkaline Phosphatase 122 U/L (46-116); Anion Gap 9.7; Aspartate Amino Transferase 16 U/L (15-37); BUN Creatinine Ratio 23.7; Bilirubin Total 0.5 mg/dL (0.2-1.0); Calcium 8.3 mg/dL (8.5-10.1); Chloride 107 mmol/L (98-107); Estimated GFR (African America 34 (>=60); Estimated GFR (Non-African Ame 28 (>=60); Globulin 4.1 g/dL; Glucose 84 mg/dL (74-106); Potassium 3.7 mmol/L (3.5-5.1); Sodium 142 mmol/L (136-145)
[2024-04-26] MEDS: CARBIDOPA/LEVODOPA 25 MG-100 MG TABLET 3 TAB PO (05:48)
[2024-04-26] MEDS: CARBIDOPA/LEVODOPA CR 25-100 MG TABLET 2 TAB PO (05:49)
[2024-04-26 08:40] LABS: Glucometer 89 mg/dL (74-106)
[2024-04-26] MEDS: CEFTRIAXONE 1,000 MG in 0.9 % SODIUM CHLORIDE 50 ML 100 MG IV (08:58)
[2024-04-26] MEDS: SOLIFENACIN SUCCINATE 10 MG TABLET PO (09:02)
[2024-04-26] MEDS: PREGABALIN 100 MG CAPSULE 300 MG PO (09:02)
[2024-04-26] MEDS: VENLAFAXINE HCL ER 150 MG CAPSULE PO (09:02)
[2024-04-26] MEDS: MIDODRINE HCL 5 MG TABLET 15 MG PO (09:03)
[2024-04-26] MEDS: FLUDROCORTISONE ACETATE 0.1 MG TABLET PO (09:03)
[2024-04-26] MEDS: TOPIRAMATE 100 MG TABLET PO (09:03)
[2024-04-26] MEDS: MONTELUKAST SODIUM 10 MG TABLET PO (09:03)
[2024-04-26] MEDS: DICLOFENAC SODIUM 25 MG TABLET.DR 75 MG PO (09:03)
--- NOTE | 2024-04-26 11:01 | REH.PTDLY ---
Physical Therapy Daily Note PT Daily Note/Assess Start: 04/25/24 09:14 Freq: Status: Active Protocol: Document 04/26/24 10:53 CRISTINA (Rec: 04/26/24 11:01 CRISTINA [id number]) Physical Therapy Daily Note/Assessment Time In 09:50 Time Out 10:18 Subjective Pt very fatigued today, back pain but does not rate. Going for procedure later today to see if he has a kidney stone. Therapeutic Exercise Minutes (minutes) 6 Therapeutic Exercise Units 0 Therapeutic Exercise Treatment Instructed in B LE supine exs including AP, QS, AA heel slides and AA abd slides 10x ea for improved strength. Therapeutic Activity Minutes (minutes) 14 Therapeutic Activity Units 1 Therapeutic Activity Comments Pt requires Max A x2 with bed mobility-supine/sit transfers. Once sitting bedside pt has good seated balance, being able to work with OT for self care and talke with Dr. House without any incidents of LOB. Sit to stand transfer Max A x2. Pt stands in place for 90 seconds and then able to slide feet across floor to side step to HOB. Pt needs Max A x2 for support and assistance from VASCULAR RADIOLOGIST to move RW . Max Ax2 with sit to supine transfer. Total Therapy Minutes 20 Total Physical Therapy Units 1 Daily Note Summary Pt very fatigued today, however pt does have better standing tolerance today and is able to take small side steps. Does require Max A x2 throughout rx.
--- NOTE | 2024-04-26 11:05 | P.PN_ITS ---
Progress Note: Subjective Subjective Interval history: Patient stable this am. Continues to complain of fatigue and increased weakness. BP low but stable. Gave bumex drip and minimal improvement in leg edema. WBC stable. Hgb improved at 9.7 after 2 units. Renal function remains abnormal. Urology consulted and will take for cystoscopy later this afternoon. Urine culture grew K. pneumonia but also sensitive to Rocephin. Decreased appetite but no emesis or diarrhea. No chest pain or palpitations. Exam Constitutional Vital Signs, click to edit/add: Last Vital Signs Temp 97.4 F L 04/26/24 08:49 Pulse 57 L 04/26/24 10:00 Resp 13 04/26/24 08:40 BP 95/59 04/26/24 08:33 Pulse Ox 92 L 04/26/24 08:33 O2 Del Method Room Air 04/26/24 08:49 O2 Flow Rate 3 04/24/24 04:33 Documenting provider has reviewed patient's vital signs: yes Common normals: no apparent distress, oriented x3 and alert HENMT Common normals: normocephalic Eye Common normals: PERRL and EOMs intact bilaterally Respiratory Common normals: normal respiratory effort and clear to auscultation bilaterally Cardio Common normals: regular rate, regular rhythm, no gallops, no murmurs and no rub GI Common normals: Normal to inspection, nondistended, normoactive bowel sounds present and non-tender Extremity General: edema (1+ bipedal pitting edema) Progress Note: Objective Labs Labs: Short CBC 04/26/24 Range/Units 01:35 WBC 13.9 H (4.0-11.0) 10^3/uL Hgb 9.7 L (14.0-18.0) g/dL Hct 30.3 L (42.0-54.0) % Plt Count 140 L (150-450) 10^3/uL BMP 04/26/24 01:35 Sodium 142 Potassium 3.7 Chloride 107 Carbon Dioxide 29.0 BUN 55.0 H Creatinine 2.32 H Glucose 84 Calcium 8.3 L Liver Function 04/26/24 Range/Units 01:35 Total Bilirubin 0.5 (0.2-1.0) mg/dL AST 16 (15-37) U/L ALT <6 L (16-63) U/L Alkaline Phosphatase 122 H (46-116) U/L Albumin 1.9 L (3.4-5.0) g/dL Progress Note: A&P Assessment and Plan (1) Sepsis: Qualifiers: Acute renal failure type: unspecified Sepsis acute organ dysfunction status: with acute organ dysfunction Sepsis type: sepsis due to unspecified organism Severe sepsis acute organ dysfunction type: acute renal failure S evere sepsis shock status: without septic shock Qualified Code(s): A41.9 - Sepsis, unspecified organism; R65.20 - Severe sepsis without septic shock; N17.9 - Acute kidney failure, unspecified (2) UTI (urinary tract infection) due to urinary indwelling catheter: Qualifiers: Indwelling urinary catheter type: unspecified Encounter type: initial encounter Qualified Code(s): T83.511A - Infection and inflammatory reaction due to indwelling urethral catheter, initial encounter; N39.0 - Urinary tract infection, site not specified (3) Acute kidney injury: (4) Hydronephrosis of right kidney: (5) Anemia in chronic illness: (6) Fluid overload: (7) 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 Urine culture showed K. pneumonia which also caused UTI. Continue Rocephin. WBC and BP stable. Renal function remains abnormal hydronephrosis on x-ray. To OR for cysto later today. Continue PT/OT for weakness. Reviewed dietary recommendations and added supplements. Monitor labs and vitals. Urinary Catheter Management Urinary Catheter Management Straight: Cath placed during this visit: yes Urethral indwelling: Yes Reason for continuing: other continuation reason Insertion date: 04/23/24 Insertion time: 15:25 Suprapubic: Cath placed during this visit: no
[2024-04-26 11:20] LABS: Glucometer 87 mg/dL (74-106)
--- NOTE | 2024-04-26 12:06 | SWNOTE1 ---
SW received email from Kyleigh at [facility] and they are able to accept pt once he is medically stable for discharge, no precert and pt already has 3 day inpt qualifying stay. SW updated nursing, pt, and family in room.
--- NOTE | 2024-04-26 12:07 | CM.NOTE ---
04/26/24 09:[address] House. Discussed labs, treatment plan and plan for OR later today. Jamarcus verbalized understanding. No plan for discharge today.
--- NOTE | 2024-04-26 13:18 | SWNOTE1 ---
ABRAHAM sent over updated labs, MAR, physician notes, PT/OT, vitals, and nursing notes to [facility].
--- NOTE | 2024-04-26 15:51 | PC.NURSE ---
taken to OR via bed. brief bedside report given to nurse.
[2024-04-26] MEDS: IOHEXOL 240 MG/ML - 50 ML VIAL INJ (17:10)
--- NOTE | 2024-04-26 17:23 | PM.URCN ---
Urology - CN: HPI Date of Consult Consult date: 04/26/24 Requesting Physician: Jose Alejandro House MD Primary Care Provider: ELLEN ARIAS Consult Narrative Reason for consult IM: Right hydronephrosis with ureteral stone distally, FLAVIA, sepsis, SP tube Narrative: 63 yo well known to Dr. Ibarra with intermittent SP tube changes for NGB. Hospitalized for 2-3 days with sepsis, CT obtained yesterday showing right hydronephrosis with distal ureteral stone and urologic consultation obtained. Has ongoing right flank pain, moderate currently. Entire PMH,PSH,ROS, family and social history, meds, allergies are as noted in admission H and P performed by Dr. House three days ago, unchanged. cc:: CC: Jose Alejandro House MD [facility] Medical History (Updated 04/26/24 @ 17:28 by Carl Yan MD) Breath shortness ?R06.02 - Shortness of breath (ICD-10) Urinary tract infection ?N39.0 - Urinary tract infection, site not specified (ICD-10) Complication, blocked Ferro catheter ?T83.091A - Other mechanical complication of indwelling urethral catheter, initial encounter (ICD-10) UTI (urinary tract infection) ?N39.0 - Urinary tract infection, site not specified (ICD-10) Bladder infection, chronic ?N30.20 - Other chronic cystitis without hematuria (ICD-10) Weakness of both lower extremities ?R29.898 - Other symptoms and signs involving the musculoskeletal system (ICD-10) Neurogenic bladder ?N31.9 - Neuromuscular dysfunction of bladder, unspecified (ICD-10) Neuropathy ?G62.9 - Polyneuropathy, unspecified (ICD-10) Tonsillectomy planned FH: bilateral hip replacements ?Z82.69 - Family history of other diseases of the musculoskeletal system and connective tissue (ICD-10) Enlarged prostate ?N40.0 - Benign prostatic hyperplasia without lower urinary tract symptoms (ICD-10) 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, unspecified (ICD-10) 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 - Malignant (primary) neoplasm, unspecified (ICD-10) Esophageal cancer ?C15.9 - Malignant neoplasm of esophagus, unspecified (ICD-10) Barretts esophagus ?K22.70 - Rust's esophagus without dysplasia (ICD-10) GERD without esophagitis ?K21.9 - Gastro-esophageal reflux disease without esophagitis (ICD-10) Asthma ?J45.909 - Unspecified asthma, uncomplicated (ICD-10) Pneumonia ?J18.9 - Pneumonia, unspecified organism (ICD-10) COVID-19 ?U07.1 - COVID-19 (ICD-10) Kidney stones ?N20.0 - Calculus of kidney (ICD-10) Bladder stones ?N21.0 - Calculus in bladder (ICD-10) Type 2 diabetes mellitus ?E11.9 - Type 2 diabetes mellitus without complications (ICD-10) Hypotension ?I95.9 - Hypotension, unspecified (ICD-10) Surgical History (Updated 08/06/23 @ 08:15 by Jorge Contreras) H/O cystoscopy ?Z98.890 - Other specified postprocedural states (ICD-10) S/P insertion of spinal cord stimulator ?Z96.89 - Presence of other specified functional implants (ICD-10) Status post right rotator cuff repair ?Z98.890 - Other specified postprocedural states (ICD-10) H/O hand surgery ?Z98.890 - Other specified postprocedural states (ICD-10) History of left knee replacement ?Z96.652 - Presence of left artificial knee joint (ICD-10) History of left shoulder replacement ?Z96.612 - Presence of left artificial shoulder joint (ICD-10) Previous back surgery ?Z98.890 - Other specified postprocedural states (ICD-10) H/O gastric bypass ?Z98.84 - Bariatric surgery status (ICD-10) Family History (Updated 08/20/23 @ 20:33 by Barbara Mauro RN) Mother Family history of hypertension Family history of diabetes mellitus Family history of COPD (chronic obstructive pulmonary disease) Brother Family history of cancer Other Family history of CHF (congestive heart failure) Social History (Updated 08/20/23 @ 20:36 by Barbara Mauro RN) Within the past year, how often did you have a drink containing alcohol: never Within the past year, how often did you have six or more drinks on one occasion: never Score interpretation: A score less than 4 is consistent with normal alcohol consumption. Smoking status: Former smoker Highest level of school completed/degree received: some college, no degree Are you now , , , , never or living with a partner: In a typical week, how many times do you talk on the telephone with family, friends, or neighbors: 3 or more times per week How often do you get together with friends or relatives: 3 or more times per week Little interest or pleasure in doing things: several days Feeling down, depressed, or hopeless: several days Feel stressed/tense/nervous/anxious/difficulty sleeping: to some extent Do you think of yourself as: straight/heterosexual Gender Identity: male Meds Home Medications and Allergies Home Medications ?Medication ?Instructions ?Recorded ?Confirmed ?Type acarbose 25 mg tablet 25 mg PO TIDWM 08/20/23 04/24/24 History atorvastatin 10 mg tablet 10 mg PO .QHS 08/20/23 04/24/24 History carbidopa 25 mg-levodopa 100 mg 3 tab PO DAILY@0600 08/20/23 04/24/24 History tablet diclofenac sodium 75 mg 75 mg PO BID 08/20/23 04/23/24 History tablet,delayed release docusate sodium 100 mg capsule 100 mg PO DAILY PRN constipation 08/20/23 04/24/24 History ezetimibe 10 mg tablet 10 mg PO .QHS 08/20/23 04/24/24 History midodrine 5 mg tablet 15 mg PO DAILY 08/20/23 04/24/24 History montelukast 10 mg tablet 10 mg PO DAILY 08/20/23 04/24/24 History pregabalin 300 mg capsule 300 mg PO BID 08/20/23 04/23/24 History tolterodine 4 mg capsule,extended 4 mg PO DAILY 08/20/23 04/23/24 History release 24 hr topiramate 100 mg tablet 100 mg PO BID 08/20/23 04/23/24 History carbidopa ER 25 mg-levodopa 100 mg 2 tab PO BID@0600,1000 08/21/23 04/24/24 History tablet,extended release potassium citrate 15 mEq (1,620 15 meq PO .QHS 08/21/23 04/24/24 History mg) tablet,extended release carbidopa 25 mg-levodopa 100 mg 2 tab PO DAILY@1000 04/23/24 04/24/24 History tablet (Sinemet) ciclopirox 0.77 % topical cream 1 applic topical BID 04/23/24 04/24/24 History tramadol 50 mg tablet 50 mg PO Q6H PRN pain 04/23/24 04/23/24 History venlafaxine 150 mg 150 mg PO DAILY 04/23/24 04/23/24 History capsule,extended release 24 hr carbidopa 25 mg-levodopa 100 mg 1 tab PO TID 04/24/24 04/24/24 History tablet (Sinemet) carbidopa ER 25 mg-levodopa 100 mg 1 tab PO TID 04/24/24 04/24/24 History tablet,extended release duloxetine 60 mg capsule,delayed 60 mg PO .QHS 04/24/24 04/24/24 History release (Cymbalta) fludrocortisone 0.1 mg tablet 0.1 mg PO DAILY 04/24/24 04/24/24 History midodrine 5 mg tablet 10 mg PO TID 04/24/24 04/24/24 History Allergies Allergy/AdvReac Type Severity Reaction Status Date / Time clonazepam Allergy Severe Difficulty Verified 01/06/24 19:48 Breathing levofloxacin [From Levaquin] Allergy Severe Difficulty Verified 01/06/24 19:48 Breathing moxifloxacin Allergy Intermediate Hives Verified 01/06/24 19:48 celecoxib [From Celebrex] Allergy Mild Hives Verified 01/06/24 19:48 erythromycin base Allergy Mild Gastrointestinal Verified 01/06/24 19:48 Upset Exam Narrative Exam Narrative: HEENT, normal Heart, RRR Lungs, clear Abd: soft, NT, no peritoneal signs, indwelling SP tube. normal external male genitalia Right flank tenderness noted LE: normal alert, oriented. Constitutional Vital Signs, click to edit/add: Last Vital Signs Temp 97.4 F L 04/26/24 08:49 Pulse 59 L 04/26/24 15:02 Resp 10 L 04/26/24 15:02 BP 131/73 04/26/24 15:02 Pulse Ox 94 L 04/26/24 15:02 O2 Del Method Room Air 04/26/24 08:49 O2 Flow Rate 3 04/24/24 04:33 Results Labs Labs: Short CBC 04/26/24 Range/Units 01:35 WBC 13.9 H (4.0-11.0) 10^3/uL Hgb 9.7 L (14.0-18.0) g/dL Hct 30.3 L (42.0-54.0) % Plt Count 140 L (150-450) 10^3/uL BMP 04/26/24 01:35 Sodium 142 Potassium 3.7 Chloride 107 Carbon Dioxide 29.0 BUN 55.0 H Creatinine 2.32 H Glucose 84 Calcium 8.3 L Liver Function 04/26/24 Range/Units 01:35 Total Bilirubin 0.5 (0.2-1.0) mg/dL AST 16 (15-37) U/L ALT <6 L (16-63) U/L Alkaline Phosphatase 122 H (46-116) U/L Albumin 1.9 L (3.4-5.0) g/dL ABG ABG results: 04/23/24 16:37 ABG pH 7.344 L ABG pCO2 35.7 ABG pO2 307.0 H ABG HCO3 19.4 L ABG O2 Saturation >100.0 ABG Base Excess -6.3 L Additional Findings Additional findings: Viewed CT scan, viewed urines and cultures, viewed labs. Urology Assessment and Plan Assessment and Plan (1) Sepsis: Qualifiers: Acute renal failure type: unspecified Sepsis acute organ dysfunction status: with acute organ dysfunction Sepsis type: sepsis due to unspecified organism Severe sepsis acute organ dysfunction type: acute renal failure Severe sepsis shock status: without septic shock Qualified Code(s): A41.9 - Sepsis, unspecified organism; R65.20 - Severe sepsis without septic shock; N17.9 - Acute kidney failure, unspecified (2) Acute kidney injury: (3) Suprapubic catheter: (4) Hydronephrosis with ureteral calculus: Plan Discussed with pt. and his . Situation is severe, with sepsis, ongoing elevated WBC and flank pain, and FLAVIA. Recommend operative intervention to improve renal function, improve UTI/sepsis. Plan cysto, right RGP, right stent with possible laser lithotripsy. Risks discussed and the pt. and his wish to proceed. Already on IV abx.
--- NOTE | 2024-04-26 17:34 | XR_ITS ---
The [address] [address] Patient Name: ALISIA CORREA MRN: [id number] date: 1960 Sex: M Assigned Patient Location: ICU Current Patient Location: ICU Accession/Order Number: [id number] Exam Date: 04/26/2024 16:20 Report Date: 04/27/2024 06:42 At the request of: ELAYNE BRIZUELA Procedure: XR urethrogram retrograde EXAM: XR urethrogram retrograde HISTORY: Right renal stone COMPARISON: XR abdomen 04/25/2024 TECHNIQUE: FINDINGS: Intraprocedural spot fluoroscopic radiograph shows guidewire within right ureter extending into the renal pelvis. Stable prior surgical changes and neurostimulator pack. XR/XR urethrogram retrograde IMPRESSION: 1. Intraoperative retrograde urethrogram without appreciable right ureteral obstruction. Electronically authenticated by: DON MURRAY Date: 04/27/2024 06:42
--- NOTE | 2024-04-26 17:55 | PC.NURSE ---
suprapubic catheter replaced in surgery
[2024-04-26 18:08] LABS: Glucometer 76 mg/dL (74-106)
[2024-04-26] MEDS: ENOXAPARIN SODIUM 40 MG/0.4 ML SYRINGE SUBQ (21:40)
[2024-04-26 21:41] LABS: Glucometer 200 mg/dL (74-106)
[2024-04-26] MEDS: ATORVASTATIN CALCIUM 10 MG TABLET PO (21:41)
[2024-04-26] MEDS: EZETIMIBE 10 MG TABLET PO (21:41)
[2024-04-26] MEDS: CARBIDOPA/LEVODOPA CR 25-100 MG TABLET 1 TAB PO (21:41)
[2024-04-26] MEDS: PROSTAT 15 GM PROTEIN/100 CAL 30 ML LIQUID PACKET PO (21:41)
[2024-04-26] MEDS: POTASSIUM CITRATE 10 MEQ ER TABLET PO (21:41)
[2024-04-26] MEDS: DULOXETINE HCL 60 MG CAPSULE.DR PO (21:41)
[2024-04-26] MEDS: CARBIDOPA/LEVODOPA 25 MG-100 MG TABLET 1 TAB PO (21:42)
[2024-04-26] MEDS: LACTOSE -REDUCED (ENSURE ORIGINAL 237 ML LIQUID) PO (21:42)
[2024-04-26] MEDS: INSULIN ASPART 300 UNIT/3 ML PEN SUBQ (21:48)
[2024-04-27] VITALS (39 sets, daily range): BP systolic 112–127; BP diastolic 68–84; PULSE 62–79; O2SAT 91–95; BMI 33.3
[2024-04-27] MEDS: ACETAMINOPHEN 500 MG TABLET 1000 MG PO (04:15)
[2024-04-27 04:37] LABS: Basophils Percent Auto 0.1 % (0.2-2.0); Hematocrit 30.1 % (42.0-54.0); Hemoglobin 9.6 g/dL (14.0-18.0); Immature Granulocytes Abs Auto 0.03 10^3/uL (0.00-0.03); Immature Granulocytes Pct Auto 0.4 % (0.0-0.5); Lymphocytes Absolute Auto 0.8 10^3/uL (1.2-3.8); Lymphocytes Percent Auto 12.3 % (20.5-60.0); Mean Corpuscular HGB Conc 31.9 g/dL (29.9-35.2); Mean Corpuscular Volume 87.8 fL (80.0-94.0); Mean Platelet Volume 12.9 fL (9.5-13.5); Monocytes Absolute Auto 0.2 10^3/uL (0.3-0.8); Monocytes Percent Auto 3.1 % (1.7-12.0); Neutrophils Absolute Auto 5.7 10^3/uL (1.4-6.5); Neutrophils Percent Auto 84.1 % (43.0-75.0); Platelet Count 173 10^3/uL (150-450); Red Blood Count 3.43 10^6/uL (4.70-6.10); Red Cell Distribution Width 15.6 % (11.0-15.0); White Blood Count 6.8 10^3/uL (4.0-11.0)
[2024-04-27 04:57] LABS: Alanine Aminotransferase <6 U/L (16-63); Albumin Globulin Ratio 0.5; Albumin Level 2.1 g/dL (3.4-5.0); Alkaline Phosphatase 121 U/L (46-116); Anion Gap 7.6; Aspartate Amino Transferase 10 U/L (15-37); BUN Creatinine Ratio 22.4; Bilirubin Total 0.3 mg/dL (0.2-1.0); Calcium 8.6 mg/dL (8.5-10.1); Carbon Dioxide 30.6 mmol/L (21.0-32.0); Chloride 105 mmol/L (98-107); Estimated GFR (African America 45 (>=60); Estimated GFR (Non-African Ame 37 (>=60); Globulin 4.5 g/dL; Glucose 153 mg/dL (74-106); Potassium 4.2 mmol/L (3.5-5.1); Sodium 139 mmol/L (136-145); Total Protein 6.6 g/dL (6.4-8.2)
[2024-04-27] MEDS: CARBIDOPA/LEVODOPA 25 MG-100 MG TABLET 3 TAB PO (06:26)
[2024-04-27] MEDS: CARBIDOPA/LEVODOPA CR 25-100 MG TABLET 2 TAB PO ×2 (06:26→09:19)
[2024-04-27] MEDS: LACTOSE -REDUCED (ENSURE ORIGINAL 237 ML LIQUID) PO (08:37)
[2024-04-27] MEDS: ACARBOSE 50 MG TABLET 25 MG PO (08:37)
[2024-04-27] MEDS: PROSTAT 15 GM PROTEIN/100 CAL 30 ML LIQUID PACKET PO (08:37)
[2024-04-27] MEDS: JUVEN PACKET 1 PACKET PO (08:37)
[2024-04-27] MEDS: PREGABALIN 100 MG CAPSULE 300 MG PO (08:37)
[2024-04-27] MEDS: DICLOFENAC SODIUM 25 MG TABLET.DR 75 MG PO (08:37)
[2024-04-27] MEDS: MIDODRINE HCL 5 MG TABLET 15 MG PO (08:38)
[2024-04-27] MEDS: VENLAFAXINE HCL ER 150 MG CAPSULE PO (08:38)
[2024-04-27] MEDS: SOLIFENACIN SUCCINATE 10 MG TABLET PO (08:38)
[2024-04-27] MEDS: TOPIRAMATE 100 MG TABLET PO (08:38)
[2024-04-27] MEDS: FLUDROCORTISONE ACETATE 0.1 MG TABLET PO (08:39)
[2024-04-27] MEDS: CEFTRIAXONE 1,000 MG in 0.9 % SODIUM CHLORIDE 50 ML 100 MG IV (09:11)
[2024-04-27] MEDS: MONTELUKAST SODIUM 10 MG TABLET PO (09:17)
[2024-04-27] MEDS: CARBIDOPA/LEVODOPA 25 MG-100 MG TABLET 2 TAB PO (09:17)
--- NOTE | 2024-04-27 10:23 | SWNOTE1 ---
Pt is ready for dc today to [facility] for rehab. ABRAHAM spoke to nursing about transport and it was recommended to call family to see how they transport as pt does have his motorized chair here. ABRAHAM called and spoke to pt's . She voiced they will transport him and they will be here around 1:00. ABRAHAM notified assistant corporate secretary in ICU. ABRAHAM complete HENS.
--- NOTE | 2024-04-27 10:44 | REH.PTDLY ---
Physical Therapy Daily Note PT Daily Note/Assess Start: 04/25/24 09:14 Freq: Status: Active Protocol: Document 04/27/24 10:37 CRISTINA (Rec: 04/27/24 10:44 CRISTINA [id number]) Physical Therapy Daily Note/Assessment Time In 09:50 Time Out 10:22 Subjective Pt finishing breakfast upon arrival. Feeling much better today per pt, reports that said his lab values are looking better too after having procedure yesterday for kidney stone. Therapeutic Exercise Minutes (minutes) 10 Therapeutic Exercise Units 1 Therapeutic Exercise Treatment With legs elevated instructed pt in AP, QS, AA heel slides, AA hip abd slides and AA SLR 10x ea. Seated B LE LAQ12x, marching 15x, hip add squeeze 10x for improved strenth. Therapeutic Activity Minutes (minutes) 13 Therapeutic Activity Units 1 Therapeutic Activity Comments Cues for pt to scoot to edge of chair prior to standing, pt able to do so and unweight bottom off chair with arms. Instructed in sit to stand transfer with Max A x1, pt is able to stand and fully extend knees, but as a result ends up forward flexed at hips as he is unable to move arms to RW without legs wanting to buckle from not having Ismael support. Pt returned to chair. Then instructed pt to use arms to pull himself up using bar of fidelia steady Min A x2. Transferred pt back to bed using fidelia steady with cues for pt to use arms to slowly lower himself onto bed. Max A x1 with B LEs of sit to supine transfer. Pt rolled to sidelying Min A for positioning. Total Therapy Minutes 23 Total Physical Therapy Units 2 Daily Note Summary Pt more alert today. Still requires 2 assist or use of fidelia steady for safe transfer as pt is weak from sitting up for period of time this morning and performing exs. Pt would benefit from SNF stay to regain strength and mobility.
--- NOTE | 2024-04-27 11:24 | PM.DS1 ---
DS: Providers Provider Date of admission: 04/23/24 20:24 Primary care physician: ELLEN ARIAS Consults: 04/23/24 18:36 Physical Therapy Eval and Treat Routine Reason for consultation: Weakness 04/24/24 Wound Assessment Consult Routine Consulting Provider: Jose Alejandro House Reason for consultation: Wound to buttocks Has provider been notified: No 04/24/24 11:49 Consult to Wound Care Routine Consulting Provider: Ronny Cruz Reason for consultation: Sacral ulcer Has provider been notified: No 04/25/24 Consult to Urology Routine Consulting Provider: Carl Yan Reason for consultation: Kidney Stone Has provider been notified: Yes Occupational Therapy Eval and Treat Routine Reason for consultation: jkfgl DS: Diagnosis Discharge Diagnosis (1) Sepsis: Qualifiers: Acute renal failure type: unspecified Sepsis acute organ dysfunction status: with acute organ dysfunction Sepsis type: sepsis due to unspecified organism Severe sepsis acute organ dysfunction type: acute renal failure Severe sepsis shock status: without septic shock Qualified Code(s): A41.9 - Sepsis, unspecified organism; R65.20 - Severe sepsis without septic shock; N17.9 - Acute kidney failure, unspecified (2) UTI (urinary tract infection) due to urinary indwelling catheter: Qualifiers: Encounter type: initial encounter Indwelling urinary catheter type: unspecified Qualified Code(s): T83.511A - Infection and inflammatory reaction due to indwelling urethral catheter, initial encounter; N39.0 - Urinary tract infection, site not specified (3) Acute kidney injury: (4) Obstruction of right ureteropelvic junction (UPJ) due to stone: (5) Hydronephrosis with ureteral calculus: (6) Anemia in chronic illness: (7) Fluid overload: (8) 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: (9) Type 2 diabetes mellitus with diabetic polyneuropathy: (10) COPD (chronic obstructive pulmonary disease): (11) Suprapubic catheter: (12) Parkinson disease: (13) Generalized weakness: (14) Sacral decubitus ulcer: DS: Summary Hospital Course Hospital Course: Reason for admission: See H&P for details. 63 y/o male with a history of Parkinson's presents to ER with weakness and SOB. Patient with suprapubic catheter and concerned of UTI. Patient confused and not as alert. To ER and noted tachycardia with low BP. WBC elevated at 15 and UA showed UTI. Lactate and BNP elevated. Gave IV fluids but not full 30 mL/kg due to concern of fluid overload and CHF. CTA negative. Admitted for treatment. Hospital course: Started IV fluids and zosyn. Resumed home medication including scheduled midodrine. Improved overnight and more alert btu BP remains low. WBC elevated and CT abdomen ordered. CT with right hydronephrosis and not able to visualize stone due to streak artifact from hip replacement. Renal function worsened. Urine culture showed UTI due to C. braakii and E. cloacae. Blood cultures positive for campelobacter and E. cloacae. Urine culture also showed K. pneumoniae. Renal function continued to worsen. US showed right hydronephrosis and possible distal stone. Urology consulted. PT/OT started for weakness. Noted LE edema and gave bumex drip. Hgb decreased and gave 2 units PRBC. BP improved and stable. Culture showed all bacteria sensitive to Rocephin and zosyn stopped. To OR and found right distal stone obstructing ureter and causing hydronephrosis. Stone removed and stend placed. Patient felt much better. Reports previously having back pain and lower abdominal pain which has resolved. WBC normal and renal function improved. PT recommended SNF. Transferred in stable condition. Will continue cefdinir x 10 days. Resume home medication as directed. Time Spent with Patient Time attestation: Total time spent providing and/or coordinating discharge services: Time spent: greater than 30 minutes Exam Constitutional Vital Signs, click to edit/add: Last Vital Signs Temp 97.2 F L 04/26/24 19:23 Pulse 62 04/27/24 10:00 Resp 18 04/27/24 05:00 BP 120/76 04/27/24 04:20 Pulse Ox 91 L 04/27/24 11:22 O2 Del Method Room Air 04/27/24 11:22 O2 Flow Rate 1 04/26/24 22:00 Documenting provider has reviewed patient's vital signs: yes Common normals: no apparent distress, oriented x3 and alert HENMT Common normals: normocephalic Eye Common normals: PERRL and EOMs intact bilaterally Respiratory Common normals: normal respiratory effort and clear to auscultation bilaterally Cardio Common normals: regular rate, regular rhythm, no gallops, no murmurs and no rub GI Common normals: Normal to inspection, nondistended, normoactive bowel sounds present and non-tender Extremity General: edema (1+ bipedal pitting edema) DS: Data Data Completed and Pending Labs on day of discharge: Labs from last 24 hours 04/27/24 04/26/24 04/26/24 04:30 21:40 18:07 WBC 6.8 RBC 3.43 L Hgb 9.6 L Hct 30.1 L MCV 87.8 MCH 28.0 MCHC 31.9 RDW 15.6 H Plt Count 173 MPV 12.9 Neut % (Auto) 84.1 H Lymph % (Auto) 12.3 L Crenshaw % (Auto) 3.1 Eos % (Auto) 0.0 L Baso % (Auto) 0.1 L Neut # (Auto) 5.7 Lymph # (Auto) 0.8 L Crenshaw # (Auto) 0.2 L Eos # (Auto) 0.0 Baso # (Auto) 0.0 Abs Immat Gran (auto) 0.03 Imm/Tot Granulo (auto) 0.4 Sodium 139 Potassium 4.2 Chloride 105 Carbon Dioxide 30.6 Anion Gap 7.6 BUN 41.0 H Creatinine 1.83 H Est GFR ( Amer) 45 L Est GFR (Non-Af Amer) 37 L BUN/Creatinine Ratio 22.4 Glucose 153 H Calcium 8.6 Total Bilirubin 0.3 AST 10 L ALT <6 L Alkaline Phosphatase 121 H Total Protein 6.6 Albumin 2.1 L Globulin 4.5 Albumin/Globulin Ratio 0.5 POC Glucose 200 H 76 Preliminary micro results at discharge 04/23/24 13:23 - Preliminary Blood Citrobacter braakii Discharge Plan Discharge Disposition: Xfer SNF Discharge Medications: New cefdinir 300 mg capsule 300 mg PO BID 10 Days Qty: 20 0RF Continued carbidopa-levodopa 25-100 mg tablet 3 tab PO DAILY@0600 atorvastatin 10 mg tablet 10 mg PO .QHS acarbose 25 mg tablet 25 mg PO TIDWM Rx Instructions: 0800,1200,1800 diclofenac sodium 75 mg tablet,delayed release (DR/EC) 75 mg PO BID Patient Comments: 0800, 1800 montelukast 10 mg tablet 10 mg PO DAILY pregabalin 300 mg capsule 300 mg PO BID Patient Comments: 0800, 1800 tolterodine 4 mg capsule,extended release 24hr 4 mg PO DAILY midodrine 5 mg tablet 15 mg PO DAILY topiramate 100 mg tablet 100 mg PO BID Patient Comments: AT 0800,1800 docusate sodium 100 mg capsule 100 mg PO DAILY PRN (Reason: constipation) ezetimibe 10 mg tablet 10 mg PO .QHS potassium citrate 15 mEq tablet extended release 15 meq PO .QHS carbidopa-levodopa 25-100 mg tablet extended release 2 tab PO BID@0600,1000 Patient Comments: 0600,1000 ciclopirox 0.77 % cream 1 applic TOPICAL BID venlafaxine 150 mg capsule,extended release 24hr 150 mg PO DAILY carbidopa-levodopa [Sinemet] 25-100 mg tablet 2 tab PO DAILY@1000 carbidopa-levodopa 25-100 mg tablet extended release 1 tab PO TID Rx Instructions: 1400,1800,2200 fludrocortisone 0.1 mg tablet 0.1 mg PO DAILY Rx Instructions: DAILY AT 0800 MAY GIVE 2 TABLETS IF SBP < 100 midodrine 5 mg tablet 10 mg PO TID Rx Instructions: 12 PM, 1400 AND 1800 do not give last dose of day after 6PM or within 4 hrs of bedtime carbidopa-levodopa [Sinemet] 25-100 mg tablet 1 tab PO TID Rx Instructions: 1400,1800,2200 duloxetine [Cymbalta] 60 mg capsule,delayed release(DR/EC) 60 mg PO .QHS tramadol 50 mg tablet 50 mg PO Q6H PRN (Reason: pain) 5 Days Qty: 20 0RF Print Language: Ivorian [employer] Head/[employer] Agent Instructions: Discharge to [facility] skilled Forms: Portal Instructions
--- NOTE | 2024-04-27 11:35 | SWNOTE1 ---
W sent over dc med rec, urology consult note, labs from today, and OT note from today. Also most recent vitals.
--- NOTE | 2024-04-27 11:35 | CM.NOTE ---
09:[address] House. [address]. House discussed current lab results, surgery results and plan for discharge today. Jamarcus verbalized understanding. Plan is for discharge to [facility] today
[2024-05-06 14:10] LABS: Calcium Oxalate Dihydrate 60 % (.); Calcium Oxalate Monohydrate 40 % (.); Size 2x2 mm (.)
== END 2024-04-27 13:06 | DRG 659 ==
LOC: ER 16:50 → ICU 20:34
PROVIDERS: Registered Nurse; Urology; Admitting Provider Family Medicine; Emergency Provider Emergency Medicine; PCP Family Medicine; Visit Provider Family Medicine
PROC: BT1DYZZ Fluoroscopy of Right Kidney, Ureter and Bladder using Other Contrast (ICD-10-PCS; principal; 2024-04-26 16:00)
DX: T83.510A Infection and inflammatory reaction due to cystostomy catheter, initial encounter (principal); A41.50 Gram-negative sepsis, unspecified; R65.20 Severe sepsis without septic shock; N13.6 Pyonephrosis; N17.9 Acute kidney failure, unspecified; R06.02 Shortness of breath; I95.1 Orthostatic hypotension; G20.A1 Parkinson's disease without dyskinesia, without mention of fluctuations; E11.42 Type 2 diabetes mellitus with diabetic polyneuropathy; J44.9 Chronic obstructive pulmonary disease, unspecified; R53.1 Weakness; D63.8 Anemia in other chronic diseases classified elsewhere; L89.159 Pressure ulcer of sacral region, unspecified stage; N31.9 Neuromuscular dysfunction of bladder, unspecified; Z87.891 Personal history of nicotine dependence; Z87.442 Personal history of urinary calculi; Z96.641 Presence of right artificial hip joint; Z99.3 Dependence on wheelchair; Z20.822 Contact with and (suspected) exposure to COVID-19
CPT/HCPCS: 36415; 36430; 36569; 36600; 71045; 71275; 74018; 74176; 74420; 76770; 80053; 81001; 82365; 82805; 82948; 83605; 83735; 83880; 84145; 84484; 85007; 85025; 85027; 85378; 85610; 86850; 86900; 86901; 87040; 87086; 87150; 87186; 87811; 93005; 93306; 94761; 96361; 96365; 96366; 96367; 96372; 96375; 96376; 97110; 97161; 97165; 97530; 97535; 99285; 99999; C1887; J0696; J1100; J1650; J2270; J2371; J2405; J2543; J2704; P9016; Q9966; Q9967

== ENCOUNTER 2024-05-12 10:14 | Outpatient (OUT) | payer MEDICARE, OTHER, SELFPAY | END 2024-05-12 10:15 | disposition home or self-care (01) | LOC: PST 10:15 | PROVIDERS: PCP Family Medicine; Visit Provider Urology | DX: Z01.818 Encounter for other preprocedural examination (principal); R33.9 Retention of urine, unspecified ==

== ENCOUNTER 2024-05-16 11:33 | Day surgery (SDC) | payer MEDICARE, OTHER, SELFPAY ==
[2024-05-16 11:50] VITALS: BP 91/63; PULSE 64; TEMP 36.2; O2SAT 93
[2024-05-16 13:35] VITALS: BP 94/56; PULSE 58; O2SAT 98
[2024-05-16] MEDS: LIDOCAINE 2% JELLY 10 ML UR (13:43)
--- NOTE | 2024-05-16 13:44 | P.URON_ITS ---
Urology Surgery Operative Note Operative Note Procedure Date: 05/16/24 Time Out Performed: yes Pre-op Diagnosis: Status post right ureteroscopic laser lithotripsy and stent placement. 2. Chronic urinary retention. Post-op Diagnosis: same as pre-op Procedures performed: 1. Cystoscopy. 2. Right stent removal. 3. Change of suprapubic cystostomy with 24 [place] Ferro catheter. Anesthesia: local Primary Surgeon: Ubaldo Ibarra Complications: None Estimated blood loss (mL): 0 Findings: non encrusted stent. Good looking SP tube insertion site. Good looking bladder. Specimens: None Drains: 24 [place] suprapubic tube. Indications for Procedures: This gentleman recently had ureteroscopic laser lithotripsy and right stent placement by Dr. Yan. He now presents for cystoscopy, right stent removal and tire changer of his 24 [place] suprapubic tube. He has signed an informed consent after risks were explained. Detailed description of Procedure: The patient was kept on his [facility] bed in the supine position and brought to the Endo suite. Timeout was done by all parties in the room. We all agreed upon the patient's identification and the planned procedures for this patient. Genitalia were sterilely prepped and draped in the usual fashion as well as the abdominal area where the suprapubic tube was. The SP tube was removed. 2% lidocaine gel was passed per urethra. I started by passing a flexible cystoscope per urethra and into the bladder. The bladder looked outstanding. No tumors stones or debris was noted. The stent was not encrusted. A flexible grasping forceps was passed and the end of the stent was grasped. The scope and stent were then removed without difficulty. I then placed a 24 [place] Ferro catheter into the bladder through the suprapubic site. I then manually irrigated it with a catheter tip syringe to verify correct placement. 10 cc of fluid was then placed in the balloon. It drained clear. A leg bag was attached. He was then discharged to home.
[2024-05-16 13:48] VITALS: BP 89/62; PULSE 74; O2SAT 99
== END 2024-05-16 14:10 | disposition home or self-care (01) ==
PROVIDERS: PCP Family Medicine; Visit Provider Urology
PROC: (CPT 51705; principal; 2024-05-16 11:30)
DX: R33.8 Other retention of urine (principal); Z46.6 Encounter for fitting and adjustment of urinary device; N31.9 Neuromuscular dysfunction of bladder, unspecified; D64.9 Anemia, unspecified; I25.10 Atherosclerotic heart disease of native coronary artery without angina pectoris; J44.9 Chronic obstructive pulmonary disease, unspecified; N40.0 Benign prostatic hyperplasia without lower urinary tract symptoms; E11.9 Type 2 diabetes mellitus without complications
CPT/HCPCS: 51705; 52310

== ENCOUNTER 2024-06-22 18:44 | Emergency (ER) | payer MEDICARE, OTHER, SELFPAY ==
[2024-06-22 18:48] VITALS: BP 101/87; PULSE 76; TEMP 36.7; O2SAT 96; BMI 30.1
--- NOTE | 2024-06-22 18:59 | CT_ITS ---
[address] [address] Patient Name: ALISIA CORREA MRN: [id number] date: 1960 Sex: M Assigned Patient Location: ER Current Patient Location: Accession/Order Number: [id number] Exam Date: 06/22/2024 19:22 Report Date: 06/22/2024 20:18 At the request of: KANG WHITING Procedure: CT abdomen pelvis wo con EXAM: CT abdomen pelvis wo con REASON FOR EXAM: Male, 63 years, Low back pain. TECHNIQUE: Computed tomography of the abdomen and pelvis is performed in the axial projection from the lung bases to the pubic symphysis. Sagittal and coronal reconstructed images are performed. Dose reduction techniques were achieved by using automated exposure control and/or adjustment of mA and/or KVP according to patient size and/or use of iterative reconstruction technique. Study was performed without IV contrast. Study was performed without oral contrast. COMPARISON: 04/24/2024 FINDINGS: Lung bases: There is mild atelectasis at the left lung base. There is no pleural effusion. Coronary artery calcifications are seen. Evaluation of the solid abdominal organs is limited in the absence of intravenous contrast. Liver: The liver is normal. Gallbladder: The gallbladder is normal. Spleen: The spleen is normal. There is a small calcified granuloma within the spleen. Pancreas: There is diffuse pancreatic atrophy. Adrenal glands: The adrenal glands are normal bilaterally. Right kidney: The kidney is normal in size. There is a punctate nonobstructing calculus in the inferior pole of the right kidney. No hydronephrosis. Left kidney: The kidney is normal in size. There is a punctate nonobstructing calculus in the superior pole of the left kidney. No hydronephrosis. Stomach: Postoperative changes are seen to the stomach. Small bowel: The small bowel is normal. Large bowel: There is stool throughout the colon consistent with constipation. Appendix: The appendix is visualized, and is normal. Aorta: There are mild atherosclerotic calcifications of the abdominal aorta. IVC: The IVC is normal. Retroperitoneum: Normal retroperitoneum. Bladder: Suboptimally evaluated due to beam hardening artifact from bilateral total hip arthroplasties. There is a suprapubic catheter in place. Pelvic organs: Suboptimally imaged. There appear to be small metallic densities suggesting brachytherapy. Abdominal wall: Normal abdominal wall. Osseous structures: There are postoperative changes to the lumbar spine. There are degenerative changes. Spinal stimulator unit is in place. CT/CT abdomen pelvis wo con IMPRESSION: Punctate bilateral nonobstructing renal calculi. No hydronephrosis. No bowel obstruction. Constipation. Additional nonacute findings, as described above. Electronically authenticated by: DEEPA KINGSTON Date: 06/22/2024 20:18
--- NOTE | 2024-06-22 19:04 | ED.MALEGU1 ---
HPI - Male Genitourinary General Chief complaint: Urogenital-Male Stated complaint: UTI Time Seen by Provider: 06/22/24 18:45 Source: patient Mode of arrival: Wheelchair Limitations: no limitations History of Present Illness HPI Narrative: Patient is a 63-year-old male who presents to the emergency department for the evaluation of back pain. Patient has a history of suprapubic catheter that is chronically indwelling. He is essentially wheelchair-bound for history of Parkinson's. He states for the last 3 weeks he has not had pain in the bilateral flanks and across the mid back, he has some suprapubic pressure. He has 2 pills left of a prescription for Bactrim. He states Dr. Ibarra office checked his urine last week and started him on Bactrim for an infection. He feels pressure in his prostate. He has not had fevers, vomiting. No medications taken prior to arrival other than the Bactrim. He called Dr. Ibarra office regarding the back pain and was referred to the ER. He does have a history of kidney stones. states that he was recently treated for sepsis and acute kidney injury. Related Data Home Medications ?Medication ?Instructions ?Recorded ?Confirmed acarbose 25 mg tablet 25 mg PO TIDWM 08/20/23 05/16/24 atorvastatin 10 mg tablet 10 mg PO .QHS 08/20/23 05/16/24 carbidopa 25 mg-levodopa 100 mg 3 tab PO DAILY@0600 08/20/23 05/16/24 tablet diclofenac sodium 75 mg 75 mg PO BID 08/20/23 05/16/24 tablet,delayed release docusate sodium 100 mg capsule 100 mg PO DAILY PRN constipation 08/20/23 05/16/24 ezetimibe 10 mg tablet 10 mg PO .QHS 08/20/23 05/16/24 midodrine 5 mg tablet 5 mg PO TID 08/20/23 05/16/24 montelukast 10 mg tablet 10 mg PO DAILY 08/20/23 05/16/24 pregabalin 300 mg capsule 300 mg PO BID 08/20/23 05/16/24 tolterodine 4 mg capsule,extended 4 mg PO DAILY 08/20/23 05/16/24 release 24 hr topiramate 100 mg tablet 100 mg PO BID 08/20/23 05/16/24 carbidopa ER 25 mg-levodopa 100 mg 1 tab PO TID 08/21/23 05/16/24 tablet,extended release potassium citrate 15 mEq (1,620 15 meq PO .QHS 08/21/23 05/16/24 mg) tablet,extended release carbidopa 25 mg-levodopa 100 mg 2 tab PO DAILY@1000 04/23/24 05/16/24 tablet (Sinemet) ciclopirox 0.77 % topical cream 1 applic topical BID 04/23/24 05/16/24 venlafaxine 150 mg 150 mg PO DAILY 04/23/24 05/16/24 capsule,extended release 24 hr carbidopa 25 mg-levodopa 100 mg 1 tab PO TID 04/24/24 05/16/24 tablet (Sinemet) duloxetine 60 mg capsule,delayed 60 mg PO .QHS 04/24/24 05/16/24 release (Cymbalta) fludrocortisone 0.1 mg tablet 0.1 mg PO DAILY 04/24/24 05/16/24 midodrine 5 mg tablet 10 mg PO TID 04/24/24 05/16/24 amino acids-protein hydrolysate 15 1 ea PO BID 05/12/24 05/16/24 gram-100 kcal/30 mL oral liquid pkt (Pro-Stat Sugar Free) arginine 7 gram-glutam 7 1 packet PO BID 05/12/24 05/16/24 gram-CaHMB 1.5 [id number]-xzclv-ll-min oral pwd pkt (Matt (with collagen)) qugxbpi-qetzurbqtinzv-zvzenefk 250 2 tab PO DAILY PRN migraine 05/12/24 05/16/24 mg-250 mg-65 mg tablet (Excedrin headache Migraine) dicyclomine 10 mg capsule 10 mg PO BID 05/12/24 05/16/24 ondansetron HCl 4 mg tablet 4 mg PO Q6H PRN nausea and vomiting 05/12/24 05/16/24 wound dressings (Triad Wound 1 applic topical TID PRN skin 05/12/24 05/16/24 Dressing paste) irritation Previous Rx's ?Medication ?Instructions ?Recorded tramadol 50 mg tablet 50 mg PO Q6H PRN pain 5 days #20 04/27/24 tabs docusate sodium 100 mg capsule 100 mg PO BID #10 caps 06/22/24 (Colace) sulfamethoxazole 800 1 tab PO BID 7 days #14 tabs 06/22/24 mg-trimethoprim 160 mg tablet (Bactrim DS) tramadol 50 mg tablet 50 mg PO Q6H PRN pain 2 days #8 06/22/24 tabs Allergies Allergy/AdvReac Type Severity Reaction Status Date / Time clonazepam Allergy Severe Difficulty Verified 06/22/24 18:48 Breathing levofloxacin [From Levaquin] Allergy Severe Difficulty Verified 06/22/24 18:48 Breathing moxifloxacin Allergy Intermediate Hives Verified 06/22/24 18:48 celecoxib [From Celebrex] Allergy Mild Hives Verified 06/22/24 18:48 erythromycin base Allergy Mild Gastrointestinal Verified 06/22/24 18:48 Upset Review of Systems ROS Constitutional Denies: fever or chills Ears, nose, mouth, and throat Denies: throat pain or nasal congestion Respiratory Denies: shortness of breath Gastrointestinal Reports: abdominal pain; Denies: nausea, vomiting or diarrhea Musculoskeletal Reports: back pain; Denies: neck pain, extremity pain or extremity swelling Integumentary/Breast Denies: rash Neurological Denies: numbness in extremities or weakness in extremities Hematologic/Lymphatic Denies: easy bruising or easy bleeding PFSH [facility] Medical History (Updated 06/22/24 @ 21:11 by SHRAVAN Bowens) Hydronephrosis with ureteral calculus ?N13.2 - Hydronephrosis with renal and ureteral calculous obstruction (ICD-10) Anemia in chronic illness ?D63.8 - Anemia in other chronic diseases classified elsewhere (ICD-10) Sacral decubitus ulcer ?L89.159 - Pressure ulcer of sacral region, unspecified stage (ICD-10) 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 ?G90.3 - Multi-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 (ICD-10) Type 2 diabetes mellitus with diabetic polyneuropathy ?E11.42 - Type 2 diabetes mellitus with diabetic polyneuropathy (ICD-10) Parkinson disease ?G20.A1 - Parkinson's disease without dyskinesia, without mention of fluctuations (ICD-10) Generalized weakness ?R53.1 - Weakness (ICD-10) Suprapubic catheter ?Z93.59 - Other cystostomy status (ICD-10) COPD (chronic obstructive pulmonary disease) ?J44.9 - Chronic obstructive pulmonary disease, unspecified (ICD-10) Breath shortness ?R06.02 - Shortness of breath (ICD-10) Urinary tract infection ?N39.0 - Urinary tract infection, site not specified (ICD-10) Complication, blocked Ferro catheter ?T83.091A - Other mechanical complication of indwelling urethral catheter, initial encounter (ICD-10) UTI (urinary tract infection) ?N39.0 - Urinary tract infection, site not specified (ICD-10) Bladder infection, chronic ?N30.20 - Other chronic cystitis without hematuria (ICD-10) Weakness of both lower extremities ?R29.898 - Other symptoms and signs involving the musculoskeletal system (ICD-10) Neurogenic bladder ?N31.9 - Neuromuscular dysfunction of bladder, unspecified (ICD-10) Neuropathy ?G62.9 - Polyneuropathy, unspecified (ICD-10) Tonsillectomy planned FH: bilateral hip replacements ?Z82.69 - Family history of other diseases of the musculoskeletal system and connective tissue (ICD-10) Enlarged prostate ?N40.0 - Benign prostatic hyperplasia without lower urinary tract symptoms (ICD-10) 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, unspecified (ICD-10) 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 - Malignant (primary) neoplasm, unspecified (ICD-10) Esophageal cancer ?C15.9 - Malignant neoplasm of esophagus, unspecified (ICD-10) Barretts esophagus ?K22.70 - Rust's esophagus without dysplasia (ICD-10) GERD without esophagitis ?K21.9 - Gastro-esophageal reflux disease without esophagitis (ICD-10) Asthma ?J45.909 - Unspecified asthma, uncomplicated (ICD-10) Pneumonia ?J18.9 - Pneumonia, unspecified organism (ICD-10) COVID-19 ?U07.1 - COVID-19 (ICD-10) Kidney stones ?N20.0 - Calculus of kidney (ICD-10) Bladder stones ?N21.0 - Calculus in bladder (ICD-10) Type 2 diabetes mellitus ?E11.9 - Type 2 diabetes mellitus without complications (ICD-10) Hypotension ?I95.9 - Hypotension, unspecified (ICD-10) Surgical History (Updated 08/06/23 @ 08:15 by Jorge Contreras) H/O cystoscopy ?Z98.890 - Other specified postprocedural states (ICD-10) S/P insertion of spinal cord stimulator ?Z96.89 - Presence of other specified functional implants (ICD-10) Status post right rotator cuff repair ?Z98.890 - Other specified postprocedural states (ICD-10) H/O hand surgery ?Z98.890 - Other specified postprocedural states (ICD-10) History of left knee replacement ?Z96.652 - Presence of left artificial knee joint (ICD-10) History of left shoulder replacement ?Z96.612 - Presence of left artificial shoulder joint (ICD-10) Previous back surgery ?Z98.890 - Other specified postprocedural states (ICD-10) H/O gastric bypass ?Z98.84 - Bariatric surgery status (ICD-10) Family History (Updated 08/20/23 @ 20:33 by Barbara Mauro RN) Mother Family history of hypertension Family history of diabetes mellitus Family history of COPD (chronic obstructive pulmonary disease) Brother Family history of cancer Other Family history of CHF (congestive heart failure) Social History Within the past year, how often did you have a drink containing alcohol: never Within the past year, how often did you have six or more drinks on one occasion: never Score interpretation: A score less than 4 is consistent with normal alcohol consumption. Smoking status: Former smoker Highest level of school completed/degree received: some college, no degree Are you now , , , , never or living with a partner: In a typical week, how many times do you talk on the telephone with family, friends, or neighbors: 3 or more times per week How often do you get together with friends or relatives: 3 or more times per week Little interest or pleasure in doing things: several days Feeling down, depressed, or hopeless: several days Feel stressed/tense/nervous/anxious/difficulty sleeping: to some extent Do you think of yourself as: straight/heterosexual Gender Identity: male Exam Narrative Exam Narrative: Gen.: Awake, alert, in no distress Head: Normocephalic, atraumatic ENT: Moist mucous membranes Respiratory: No respiratory distress Back: Diffuse tenderness of the superior lumbar spine and bilateral CVA areas with no focal CVA tenderness or pain out of proportion on exam. No bony point tenderness of the spine. Spinal stimulator noted. Gastrointestinal: Abdomen is soft, nondistended and nontender to palpation; suprapubic catheter in place, catheter bag attached with dark orange/yellow urine Extremities: Moves extremities equally Psych: Normal mood and affect Neuro: No focal neuro deficit Skin: Warm, dry, intact Constitutional Vital Signs, click to edit/add: Last Vital Signs Temp 98.0 F 06/22/24 18:48 Pulse 64 06/22/24 20:45 Resp 18 06/22/24 20:45 BP 148/88 H 06/22/24 20:45 Pulse Ox 95 06/22/24 20:45 O2 Del Method Room Air 06/22/24 20:45 Course Vital Signs Vital signs: Vital Signs Temperature 98.0 F 06/22/24 18:48 Pulse Rate 76 06/22/24 18:48 Respiratory Rate 16 06/22/24 18:48 Blood Pressure 101/87 06/22/24 18:48 Pulse Oximetry 96 06/22/24 18:48 Oxygen Delivery Method Room Air 06/22/24 18:48 Temperature 98.0 F 06/22/24 18:48 Pulse Rate 64 06/22/24 20:45 Respiratory Rate 18 06/22/24 20:45 Blood Pressure 148/88 H 06/22/24 20:45 Pulse Oximetry 95 06/22/24 20:45 Oxygen Delivery Method Room Air 06/22/24 20:45 MDM - Male Genitourinary MDM Narrative Medical decision making narrative: Patient treated for pain with Dilaudid, gentle IV fluids and Zofran in the ER with improvement. He continued to report pressure that he attributed to an enlarged prostate, urine specimen continues to show nitrate positive urinary tract infection although I suspect the patient is a chronic carrier, his last urine culture was reviewed showing susceptibility to all 3 organisms to Bactrim and fluoroquinolones although the patient is allergic. He is given a prescription for an additional 7 days of Bactrim. The CT scan shows no evidence of acute process other than constipation which I suspect is causing the patient's pressure in the low abdomen and rectum. He requested an enema, he was given magnesium citrate, Colace. He requested pain medication as well for his back although I suspect this will get better after the constipation is relieved. He is given a short course of tramadol. Follow-up with urology and return to the ER if symptoms change or worsen. Patient was reevaluated by attending physician. He is hemodynamically stable, no evidence of sepsis. SHARED APC VISIT, PHYSICIAN ATTESTATION: [id number] I performed a substantive part of the MDM during the patient?s E/M visit. I personally evaluated and examined the patient. I personally made or approved the documented management plan and acknowledge its risk of complications. ? Medical Records Attestation: I reviewed the patient's medical records. Lab Data Attestation: I reviewed the patient's lab results. Labs: Lab Results 06/22/24 06/22/24 Range/Units 18:54 19:13 WBC 6.8 (4.0-11.0) 10^3/uL RBC 4.37 L (4.70-6.10) 10^6/uL Hgb 12.3 L (14.0-18.0) g/dL Hct 39.4 L (42.0-54.0) % MCV 90.2 (80.0-94.0) fL MCH 28.1 (25.9-34.0) pg MCHC 31.2 (29.9-35.2) g/dL RDW 15.4 H (11.0-15.0) % Plt Count 210 (150-450) 10^3/uL MPV 13.6 H (9.5-13.5) fL Neut % (Auto) 45.9 (43.0-75.0) % Lymph % (Auto) 41.5 (20.5-60.0) % [place] % (Auto) 8.1 (1.7-12.0) % Eos % (Auto) 3.6 (0.9-7.0) % Baso % (Auto) 0.6 (0.2-2.0) % Neut # (Auto) 3.1 (1.4-6.5) 10^3/uL Lymph # (Auto) 2.8 (1.2-3.8) 10^3/uL [place] # (Auto) 0.6 (0.3-0.8) 10^3/uL Eos # (Auto) 0.2 (0.0-0.7) 10^3/uL Baso # (Auto) 0.0 (0.0-0.1) 10^3/uL Abs Immat Gran (auto) 0.02 (0.00-0.03) 10^3/uL Imm/Tot Granulo (auto) 0.3 (0.0-0.5) % PT 10.3 (9.0-11.6) sec INR 0.97 Sodium 142 (136-145) mmol/L Potassium 4.5 (3.5-5.1) mmol/L Chloride 106 (98-107) mmol/L Carbon Dioxide 23.1 (21.0-32.0) mmol/L Anion Gap 17.4 BUN 34.0 H (7.0-18.0) mg/dL Creatinine 1.70 H (0.70-1.30) mg/dL Est GFR ( Amer) 49 L (>=60) Est GFR (Non-Af Amer) 41 L (>=60) BUN/Creatinine Ratio 20.0 Glucose 87 (74-106) mg/dL Lactate 1.6 (0.4-2.0) mmol/L Calcium 9.3 (8.5-10.1) mg/dL Total Bilirubin 0.4 (0.2-1.0) mg/dL AST 21 (15-37) U/L ALT 12 L (16-63) U/L Alkaline Phosphatase 96 (46-116) U/L Total Protein 7.2 (6.4-8.2) g/dL Albumin 3.6 (3.4-5.0) g/dL Globulin 3.6 g/dL Albumin/Globulin Ratio 1.0 Lipase 47.0 (16.0-77.0) U/L Urine Color Lt. yellow (YELLOW) Urine Clarity Clear (CLEAR) Urine pH 6.5 (5.0-9.0) Ur Specific [place] 1.025 (1.005-1.025) Urine Protein 100 A (NEG/TRACE) mg/dL Urine Glucose (UA) Negative (NEGATIVE) mg/dL Urine Ketones Trace A (NEGATIVE) mg/dL Urine Occult Blood Large A (NEGATIVE) Urine Nitrite Positive A (NEGATIVE) Urine Bilirubin Negative (NEGATIVE) Urine Urobilinogen 1.0 (0.2-1.0) EU/dL Ur Leukocyte Esterase Moderate A (NEGATIVE) Urine RBC 50-75 A (0-2) #/HPF Urine WBC 20-50 A (NONE SEEN) #/HPF Ur Squamous Epith Cells None seen (NONE/RARE) #/LPF Urine Crystals None seen (None Seen) #/HPF Urine Bacteria Large A (NONE SEEN) #/HPF Urine Casts None seen (NONE SEEN) #/LPF Urine Mucus None seen (NONE SEEN) Urine Yeast Seen A (NONE SEEN) Ur Culture Indicated? Yes Imaging Data CT scan - abdomen: Attestation: I have reviewed the pertinent imaging results. Radiologist's impression: ITS Impressions Abdomen/Pelvis CT 06/22/24 18:59 IMPRESSION: Punctate bilateral nonobstructing renal calculi. No hydronephrosis. No bowel obstruction. Constipation. Additional nonacute findings, as described above. Electronically authenticated by: DEEPA KINGSTON Date: 06/22/2024 20:18 Discharge Plan Discharge Chief Complaint: Urogenital-Male Clinical Impression: Urinary tract infection, Constipation, Back pain Patient Disposition: Home, Self-Care Time of Disposition Decision: 21:10 Condition: Good Prescriptions / Home Meds: New sulfamethoxazole-trimethoprim [Bactrim DS] 800-160 mg tablet 1 tab PO BID 7 Days Qty: 14 0RF docusate sodium [Colace] 100 mg capsule 100 mg PO BID Qty: 10 0RF tramadol 50 mg tablet 50 mg PO Q6H PRN (Reason: pain) 2 Days Qty: 8 0RF Rx Instructions: DX: M54.5 No Action carbidopa-levodopa 25-100 mg tablet 3 tab PO DAILY@0600 atorvastatin 10 mg tablet 10 mg PO .QHS acarbose 25 mg tablet 25 mg PO TIDWM Rx Instructions: 0800,1200,1800 diclofenac sodium 75 mg tablet,delayed release (DR/EC) 75 mg PO BID Patient Comments: 0800, 1800 montelukast 10 mg tablet 10 mg PO DAILY pregabalin 300 mg capsule 300 mg PO BID Patient Comments: 0800, 1800 tolterodine 4 mg capsule,extended release 24hr 4 mg PO DAILY midodrine 5 mg tablet 5 mg PO TID Patient Comments: 1200,1400,1800 topiramate 100 mg tablet 100 mg PO BID Patient Comments: AT 0800,1800 docusate sodium 100 mg capsule 100 mg PO DAILY PRN (Reason: constipation) ezetimibe 10 mg tablet 10 mg PO .QHS potassium citrate 15 mEq tablet extended release 15 meq PO .QHS carbidopa-levodopa 25-100 mg tablet extended release 1 tab PO TID Patient Comments: 1400,1800,2200 ciclopirox 0.77 % cream 1 applic TOPICAL BID venlafaxine 150 mg capsule,extended release 24hr 150 mg PO DAILY carbidopa-levodopa [Sinemet] 25-100 mg tablet 2 tab PO DAILY@1000 fludrocortisone 0.1 mg tablet 0.1 mg PO DAILY Rx Instructions: DAILY AT 0800 MAY GIVE 2 TABLETS IF SBP < 100 midodrine 5 mg tablet 10 mg PO TID Rx Instructions: 12 PM, 1400 AND 1800 do not give last dose of day after 6PM or within 4 hrs of bedtime carbidopa-levodopa [Sinemet] 25-100 mg tablet 1 tab PO TID Rx Instructions: 1400,1800,2200 duloxetine [Cymbalta] 60 mg capsule,delayed release(DR/EC) 60 mg PO .QHS tramadol 50 mg tablet 50 mg PO Q6H PRN (Reason: pain) 5 Days Qty: 20 0RF Matt (with collagen) 7-7-1.5 gram powder in packet 1 packet PO BID Rx Instructions: mix 1 packet with 8-10 oz liquid Pro-Stat Sugar Free 15 gram- 100 kcal/30 mL liquid in packet 1 ea PO BID Excedrin Migraine 250-250-65 mg tablet 2 tab PO DAILY PRN (Reason: migraine headache) dicyclomine 10 mg capsule 10 mg PO BID Triad Wound Dressing Paste 1 applic topical TID PRN (Reason: skin irritation) ondansetron HCl 4 mg tablet 4 mg PO Q6H PRN (Reason: nausea and vomiting) Print Language: Greenlandic Instructions: Constipation (ED), Urinary Tract Infection in Men (ED), Acute Low Back Pain (ED) Referrals: ELLEN ARIAS [Primary Care Provider] - 1 week
[2024-06-22] MEDS: ONDANSETRON PF 4 MG/2 ML VIAL IV (19:32)
[2024-06-22] MEDS: HYDROMORPHONE HCL 0.5 MG/0.5 ML SYRINGE IV (19:32)
[2024-06-22] MEDS: 0.9 % SODIUM CHLORIDE 1,000 ML 250 ML IV (19:32)
[2024-06-22 19:34] LABS: Basophils Percent Auto 0.6 % (0.2-2.0); Eosinophils Absolute Auto 0.2 10^3/uL (0.0-0.7); Eosinophils Percent Auto 3.6 % (0.9-7.0); Hematocrit 39.4 % (42.0-54.0); Hemoglobin 12.3 g/dL (14.0-18.0); Immature Granulocytes Abs Auto 0.02 10^3/uL (0.00-0.03); Immature Granulocytes Pct Auto 0.3 % (0.0-0.5); Lymphocytes Absolute Auto 2.8 10^3/uL (1.2-3.8); Lymphocytes Percent Auto 41.5 % (20.5-60.0); Mean Corpuscular HGB Conc 31.2 g/dL (29.9-35.2); Mean Corpuscular Hemoglobin 28.1 pg (25.9-34.0); Mean Corpuscular Volume 90.2 fL (80.0-94.0); Mean Platelet Volume 13.6 fL (9.5-13.5); Monocytes Absolute Auto 0.6 10^3/uL (0.3-0.8); Monocytes Percent Auto 8.1 % (1.7-12.0); Neutrophils Absolute Auto 3.1 10^3/uL (1.4-6.5); Neutrophils Percent Auto 45.9 % (43.0-75.0); Platelet Count 210 10^3/uL (150-450); Red Blood Count 4.37 10^6/uL (4.70-6.10); Red Cell Distribution Width 15.4 % (11.0-15.0); White Blood Count 6.8 10^3/uL (4.0-11.0)
[2024-06-22 19:39] LABS: INR 0.97; Prothrombin Time 10.3 sec (9.0-11.6)
[2024-06-22 19:50] LABS: Alanine Aminotransferase 12 U/L (16-63); Albumin Level 3.6 g/dL (3.4-5.0); Alkaline Phosphatase 96 U/L (46-116); Anion Gap 17.4; Aspartate Amino Transferase 21 U/L (15-37); Bilirubin Total 0.4 mg/dL (0.2-1.0); Calcium 9.3 mg/dL (8.5-10.1); Carbon Dioxide 23.1 mmol/L (21.0-32.0); Chloride 106 mmol/L (98-107); Estimated GFR (African America 49 (>=60); Estimated GFR (Non-African Ame 41 (>=60); Globulin 3.6 g/dL; Potassium 4.5 mmol/L (3.5-5.1); Sodium 142 mmol/L (136-145); Total Protein 7.2 g/dL (6.4-8.2)
[2024-06-22 19:52] LABS: Lactate/Lactic Acid 1.6 mmol/L (0.4-2.0)
[2024-06-22 19:56] LABS: Glucose 87 mg/dL (74-106)
[2024-06-22 20:45] VITALS: BP 148/88; PULSE 64; O2SAT 95
[2024-06-22 20:49] LABS: Bilirubin Urine NEGATIVE (NEGATIVE); Blood Urine LARGE (NEGATIVE); Clarity Urine CLEAR (CLEAR); Color Urine LT. YELLOW (YELLOW); Glucose Urine UA NEGATIVE (NEGATIVE); Ketones Urine TRACE mg/dL (NEGATIVE); Leukocyte Esterase Urine MODERATE (NEGATIVE); Nitrite Urine POSITIVE (NEGATIVE); Protein Urine 100 mg/dL (NEG/TRACE); Specific Gravity Urine 1.025 (1.005-1.025); pH Urine 6.5 (5.0-9.0)
[2024-06-22 20:51] LABS: Urine Microscopic Indicated YES
[2024-06-22 21:11] LABS: RBC Urine 50-75 #/HPF (0-2); WBC Urine 20-50 #/HPF (NONE SEEN)
[2024-06-22 21:12] LABS: Bacteria Urine LARGE #/HPF (NONE SEEN); Cast Seen? NONE SEEN #/LPF (NONE SEEN); Crystals Seen? None Seen #/HPF (None Seen)
[2024-06-22 21:13] LABS: Mucus Urine NONE SEEN (NONE SEEN); Squamous Epithelial Cell Urine NONE SEEN #/LPF (NONE/RARE)
[2024-06-22 21:14] LABS: Urine Culture Indicated YES
[2024-06-22] MEDS: MAGNESIUM CITRATE 296 ML SOLUTION PO (21:26)
[2024-06-22] MEDS: OXYCODONE HCL/ACETAMINOPHEN 5MG/325MG 1 TAB PO (22:32)
[2024-06-22] MEDS: OXYCODONE HCL/ACETAMINOPHEN 5MG/325MG 2 TAB PO (22:32)
== END 2024-06-22 22:44 | disposition home or self-care (01) ==
PROVIDERS: Physician Assistant; Emergency Provider Emergency Medicine; PCP Family Medicine
DX: N39.0 Urinary tract infection, site not specified (principal); K59.00 Constipation, unspecified; M54.9 Dorsalgia, unspecified; Z99.3 Dependence on wheelchair; G20.A1 Parkinson's disease without dyskinesia, without mention of fluctuations; Z87.442 Personal history of urinary calculi; Z87.891 Personal history of nicotine dependence; R10.9 Unspecified abdominal pain
CPT/HCPCS: 36415; 74176; 80053; 81001; 82800; 83605; 83690; 85025; 85610; 87040; 87086; 96374; 96375; 99285; J1170; J2405

== ENCOUNTER 2024-07-06 13:22 | Emergency (ER) | payer MEDICARE, OTHER, SELFPAY ==
[2024-07-06] VITALS (18 sets, daily range): BP systolic 115–215; BP diastolic 71–121; PULSE 50–61; TEMP 36.4; O2SAT 96–100; BMI 30.1
--- NOTE | 2024-07-06 13:34 | ECG_ITS ---
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
--- NOTE | 2024-07-06 13:34 | XR_ITS ---
The [address] [address] Patient Name: ALISIA CORREA MRN: [id number] date: 1960 Sex: M Assigned Patient Location: ER Current Patient Location: ER Accession/Order Number: [id number] Exam Date: 07/06/2024 13:58 Report Date: 07/06/2024 14:22 At the request of: KANG WHITING Procedure: XR chest 1V EXAMINATION: XR chest 1V HISTORY: Hypertension COMPARISON: 04/24/2024 TECHNIQUE: AP portable FINDINGS: LUNGS: Low lung volumes. Elevated left hemidiaphragm. Left basilar infiltrate VASCULATURE: No increased pulmonary vasculature. PLEURA: No pneumothorax, effusion, or pleural thickening. CARDIAC: No cardiomegaly or cardiac silhouette abnormality. MEDIASTINUM: No visible mass or adenopathy. BONES: No fracture or visible bone lesion. Cervical fusion hardware OTHER: Negative. XR/XR chest 1V IMPRESSION: Elevated left hemidiaphragm with left basilar infiltrate Electronically authenticated by: LIZETH MCDONOUGH Date: 07/06/2024 14:22
--- NOTE | 2024-07-06 13:35 | CT_ITS ---
The [address] [address] Patient Name: ALISIA CORREA MRN: [id number] date: 1960 Sex: M Assigned Patient Location: ER Current Patient Location: ER Accession/Order Number: [id number] Exam Date: 07/06/2024 13:58 Report Date: 07/06/2024 14:49 At the request of: KANG WHITING Procedure: CT head/brain wo con EXAMINATION: CT head/brain wo con, 07/06/2024 1:58 PM EDT HISTORY: Hypertension COMPARISON: None. TECHNIQUE: CT scan of the head was performed without IV contrast. CT dose reduction technique was used, including Automated Exposure Control. FINDINGS: BRAIN: No edema, hemorrhage, mass, acute infarction. Moderate diffuse atrophy. CSF SPACES: No hydrocephalus, subarachnoid hemorrhage, or mass. Appropriate for age. SKULL: No fracture, mass, or other significant visible lesion. SINUSES: No significant mucosal thickening or fluid on the limited views. ORBITS: No appreciable abnormality on the limited views. OTHER: Negative CT/CT head/brain wo con IMPRESSION: Moderate atrophy No acute intracranial abnormality Electronically authenticated by: LIZETH MCDONOUGH Date: 07/06/2024 14:49
--- NOTE | 2024-07-06 13:35 | ED.GENADUL1 ---
HPI HPI - General Adult General Chief complaint: Chest Pain Stated complaint: HIGH BLOOD PRESSURE Time Seen by Provider: 07/06/24 13:33 Source: patient Mode of arrival: Wheelchair Limitations: no limitations History of Present Illness HPI narrative: Patient is a 63-year-old male well-known to this emergency department with a history of Parkinson's, suprapubic catheter, chronic back pain who presents to the ER for elevated blood pressure that was noted by his physical therapist that came to the home today. Patient and his state that he has had increasing migraines over the last week that the patient states are typical of his previous migraines but seem to be stronger. He took Imitrex at about 1130 today. He does not complain of chest pain, shortness of breath, recent illness. He states today his vision seems blurry. He has not had any numbness or tingling, unilateral weakness, falls or injury. Related Data Home Medications ?Medication ?Instructions ?Recorded ?Confirmed acarbose 25 mg tablet 25 mg PO TIDWM 08/20/23 07/06/24 atorvastatin 10 mg tablet 10 mg PO .QHS 08/20/23 07/06/24 carbidopa 25 mg-levodopa 100 mg 3 tab PO DAILY@0600 08/20/23 07/06/24 tablet diclofenac sodium 75 mg 75 mg PO BID 08/20/23 07/06/24 tablet,delayed release docusate sodium 100 mg capsule 100 mg PO DAILY PRN constipation 08/20/23 07/06/24 ezetimibe 10 mg tablet 10 mg PO .QHS 08/20/23 07/06/24 midodrine 5 mg tablet 5 mg PO TID 08/20/23 07/06/24 montelukast 10 mg tablet 10 mg PO DAILY 08/20/23 07/06/24 pregabalin 300 mg capsule 300 mg PO BID 08/20/23 07/06/24 tolterodine 4 mg capsule,extended 4 mg PO DAILY 08/20/23 07/06/24 release 24 hr topiramate 100 mg tablet 100 mg PO BID 08/20/23 07/06/24 carbidopa ER 25 mg-levodopa 100 mg 1 tab PO TID 08/21/23 07/06/24 tablet,extended release potassium citrate 15 mEq (1,620 15 meq PO .QHS 08/21/23 07/06/24 mg) tablet,extended release carbidopa 25 mg-levodopa 100 mg 2 tab PO DAILY@1000 04/23/24 07/06/24 tablet (Sinemet) ciclopirox 0.77 % topical cream 1 applic topical BID 04/23/24 07/06/24 venlafaxine 150 mg 150 mg PO DAILY 04/23/24 07/06/24 capsule,extended release 24 hr carbidopa 25 mg-levodopa 100 mg 1 tab PO TID 04/24/24 07/06/24 tablet (Sinemet) duloxetine 60 mg capsule,delayed 60 mg PO .QHS 04/24/24 07/06/24 release (Cymbalta) fludrocortisone 0.1 mg tablet 0.1 mg PO DAILY 04/24/24 07/06/24 midodrine 5 mg tablet 10 mg PO TID 04/24/24 05/16/24 ryfhlkn-xamhvudouuvvr-rqpgopwn 250 2 tab PO DAILY PRN migraine 05/12/24 07/06/24 mg-250 mg-65 mg tablet (Excedrin headache Migraine) dicyclomine 10 mg capsule 10 mg PO BID 05/12/24 07/06/24 ondansetron HCl 4 mg tablet 4 mg PO Q6H PRN nausea and vomiting 05/12/24 07/06/24 wound dressings (Triad Wound 1 applic topical TID PRN skin 05/12/24 07/06/24 Dressing paste) irritation collagenase clostridium histo. 250 1 applic topical DAILY 07/06/24 07/06/24 unit/gram topical ointment (Santyl) metformin 500 mg tablet 500 mg PO DAILY 07/06/24 07/06/24 sumatriptan succinate 50 mg tablet 50 mg PO Q2H PRN migraine headache 07/06/24 07/06/24 Previous Rx's ?Medication ?Instructions ?Recorded tramadol 50 mg tablet 50 mg PO Q6H PRN pain 5 days #20 04/27/24 tabs docusate sodium 100 mg capsule 100 mg PO BID #10 caps 06/22/24 (Colace) sulfamethoxazole 800 1 tab PO BID 7 days #14 tabs 06/22/24 mg-trimethoprim 160 mg tablet (Bactrim DS) tramadol 50 mg tablet 50 mg PO Q6H PRN pain 2 days #8 09/04/24 tabs xapbwnlkah-cwliloalvyueu-fwapusrc 1 cap PO Q6H PRN headache #12 caps 07/06/24 50 mg-300 mg-40 mg capsule (Fioricet) cefdinir 300 mg capsule 300 mg PO BID 7 days #14 caps 07/06/24 ondansetron 4 mg disintegrating 4 mg PO Q6H PRN nausea and 07/06/24 tablet vomiting #12 tabs Allergies Allergy/AdvReac Type Severity Reaction Status Date / Time clonazepam Allergy Severe Difficulty Verified 06/22/24 18:48 Breathing levofloxacin [From Levaquin] Allergy Severe Difficulty Verified 06/22/24 18:48 Breathing moxifloxacin Allergy Intermediate Hives Verified 06/22/24 18:48 celecoxib [From Celebrex] Allergy Mild Hives Verified 06/22/24 18:48 erythromycin base Allergy Mild Gastrointestinal Verified 06/22/24 18:48 Upset Opioid HPI Opioid Management Most Recent Opioid Data: Last Pain Scale 3 04/27/24 08:00 Last Pain Intensity 5 04/25/24 09:14 Last ORT Total Score 0 04/23/24 20:47 Last ORT Risk Category Low Risk 04/23/24 20:47 Review of Systems ROS Constitutional Denies: fever or chills Eyes Reports: blurry vision Ears, nose, mouth, and throat Denies: throat pain or nasal congestion Cardiovascular Denies: chest pain Respiratory Denies: shortness of breath Gastrointestinal Denies: nausea or vomiting Musculoskeletal Denies: back pain Integumentary/Breast Denies: rash Neurological Reports: headache; Denies: numbness in extremities or weakness in extremities Hematologic/Lymphatic Denies: easy bruising or easy bleeding [facility] Medical History (Updated 07/06/24 @ 15:04 by SHRAVAN Bowens) Hydronephrosis with ureteral calculus ?N13.2 - Hydronephrosis with renal and ureteral calculous obstruction (ICD-10) Anemia in chronic illness ?D63.8 - Anemia in other chronic diseases classified elsewhere (ICD-10) Sacral decubitus ulcer ?L89.159 - Pressure ulcer of sacral region, unspecified stage (ICD-10) 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 ?G90.3 - Multi-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 (ICD-10) Type 2 diabetes mellitus with diabetic polyneuropathy ?E11.42 - Type 2 diabetes mellitus with diabetic polyneuropathy (ICD-10) Parkinson disease ?G20.A1 - Parkinson's disease without dyskinesia, without mention of fluctuations (ICD-10) Generalized weakness ?R53.1 - Weakness (ICD-10) Suprapubic catheter ?Z93.59 - Other cystostomy status (ICD-10) COPD (chronic obstructive pulmonary disease) ?J44.9 - Chronic obstructive pulmonary disease, unspecified (ICD-10) Breath shortness ?R06.02 - Shortness of breath (ICD-10) Urinary tract infection ?N39.0 - Urinary tract infection, site not specified (ICD-10) Complication, blocked Ferro catheter ?T83.091A - Other mechanical complication of indwelling urethral catheter, initial encounter (ICD-10) UTI (urinary tract infection) ?N39.0 - Urinary tract infection, site not specified (ICD-10) Bladder infection, chronic ?N30.20 - Other chronic cystitis without hematuria (ICD-10) Weakness of both lower extremities ?R29.898 - Other symptoms and signs involving the musculoskeletal system (ICD-10) Neurogenic bladder ?N31.9 - Neuromuscular dysfunction of bladder, unspecified (ICD-10) Neuropathy ?G62.9 - Polyneuropathy, unspecified (ICD-10) Tonsillectomy planned FH: bilateral hip replacements ?Z82.69 - Family history of other diseases of the musculoskeletal system and connective tissue (ICD-10) Enlarged prostate ?N40.0 - Benign prostatic hyperplasia without lower urinary tract symptoms (ICD-10) 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, unspecified (ICD-10) 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 - Malignant (primary) neoplasm, unspecified (ICD-10) Esophageal cancer ?C15.9 - Malignant neoplasm of esophagus, unspecified (ICD-10) Barretts esophagus ?K22.70 - Rust's esophagus without dysplasia (ICD-10) GERD without esophagitis ?K21.9 - Gastro-esophageal reflux disease without esophagitis (ICD-10) Asthma ?J45.909 - Unspecified asthma, uncomplicated (ICD-10) Pneumonia ?J18.9 - Pneumonia, unspecified organism (ICD-10) COVID-19 ?U07.1 - COVID-19 (ICD-10) Kidney stones ?N20.0 - Calculus of kidney (ICD-10) Bladder stones ?N21.0 - Calculus in bladder (ICD-10) Type 2 diabetes mellitus ?E11.9 - Type 2 diabetes mellitus without complications (ICD-10) Hypotension ?I95.9 - Hypotension, unspecified (ICD-10) Surgical History (Updated 08/06/23 @ 08:15 by Jorge Contreras) H/O cystoscopy ?Z98.890 - Other specified postprocedural states (ICD-10) S/P insertion of spinal cord stimulator ?Z96.89 - Presence of other specified functional implants (ICD-10) Status post right rotator cuff repair ?Z98.890 - Other specified postprocedural states (ICD-10) H/O hand surgery ?Z98.890 - Other specified postprocedural states (ICD-10) History of left knee replacement ?Z96.652 - Presence of left artificial knee joint (ICD-10) History of left shoulder replacement ?Z96.612 - Presence of left artificial shoulder joint (ICD-10) Previous back surgery ?Z98.890 - Other specified postprocedural states (ICD-10) H/O gastric bypass ?Z98.84 - Bariatric surgery status (ICD-10) Family History (Updated 08/20/23 @ 20:33 by Barbara Mauro RN) Mother Family history of hypertension Family history of diabetes mellitus Family history of COPD (chronic obstructive pulmonary disease) Brother Family history of cancer Other Family history of CHF (congestive heart failure) Social History Within the past year, how often did you have a drink containing alcohol: never Within the past year, how often did you have six or more drinks on one occasion: never Score interpretation: A score less than 4 is consistent with normal alcohol consumption. Smoking status: Former smoker Highest level of school completed/degree received: some college, no degree Are you now , , , , never or living with a partner: In a typical week, how many times do you talk on the telephone with family, friends, or neighbors: 3 or more times per week How often do you get together with friends or relatives: 3 or more times per week Little interest or pleasure in doing things: not at all Feeling down, depressed, or hopeless: not at all Feel stressed/tense/nervous/anxious/difficulty sleeping: to some extent Do you think of yourself as: straight/heterosexual Gender Identity: male Exam Narrative Exam Narrative: Gen.: Awake, alert, in no distress Head: Normocephalic, atraumatic ENT: Moist mucous membranes Respiratory: No respiratory distress, lungs clear bilaterally Cardio: Regular rate and rhythm Extremities: Moves extremities equally Psych: Normal mood and affect Neuro: No focal neuro deficit Skin: Warm, dry, intact Constitutional Vital Signs, click to edit/add: Last Vital Signs Temp 97.5 F L 07/06/24 13:28 Pulse 58 L 07/06/24 14:30 Resp 17 07/06/24 14:30 BP 129/72 07/06/24 14:30 Pulse Ox 96 07/06/24 14:30 O2 Del Method Room Air 07/06/24 13:28 Course Vital Signs Vital signs: Vital Signs Temperature 97.5 F L 07/06/24 13:28 Pulse Rate 57 L 07/06/24 13:28 Respiratory Rate 17 07/06/24 13:28 Blood Pressure 213/121 H 07/06/24 13:28 Pulse Oximetry 96 07/06/24 13:28 Oxygen Delivery Method Room Air 07/06/24 13:28 Temperature 97.5 F L 07/06/24 13:28 Pulse Rate 58 L 07/06/24 14:30 Respiratory Rate 17 07/06/24 14:30 Blood Pressure 129/72 07/06/24 14:30 Pulse Oximetry 96 07/06/24 14:30 Oxygen Delivery Method Room Air 07/06/24 13:28 Medical Decision Making [facility] Narrative Medical decision making narrative: Patient was treated with hydralazine, Fioricet and Zofran. His headache is significantly better, he is resting comfortably in the ER and his blood pressure has normalized. Patient is prescribed midodrine at home, given his recheck blood pressure of 115/74, he was instructed to continue his regular medications at home to avoid hypotension. I suspect the elevated blood pressure readings were related to headaches over the last week causing pain. He is neurovascularly intact, no focal neurodeficits. Patient and his are very comfortable with discharge home, chest x-ray shows questionable left lower lobe infiltrate and CT of the brain is unremarkable. The remainder of the blood work is normal. Patient will be placed on cefdinir, Fioricet and Zofran for home. Follow-up closely with PCP for repeat evaluation of blood pressure and return to the ER if symptoms change or worsen SUPERVISED APC VISIT, PHYSICIAN ATTESTATION: Based on the medical record the care appears appropriate. ? Medical Records Medical records reviewed: Yes I reviewed the patient's medical records Lab Data Lab results reviewed: Yes I reviewed the patient's lab results Labs: Lab Results 07/06/24 Range/Units 13:35 WBC 6.2 (4.0-11.0) 10^3/uL RBC 4.41 L (4.70-6.10) 10^6/uL Hgb 12.2 L (14.0-18.0) g/dL Hct 39.4 L (42.0-54.0) % MCV 89.3 (80.0-94.0) fL MCH 27.7 (25.9-34.0) pg MCHC 31.0 (29.9-35.2) g/dL RDW 15.1 H (11.0-15.0) % Plt Count 201 (150-450) 10^3/uL MPV 13.0 (9.5-13.5) fL Neut % (Auto) 45.8 (43.0-75.0) % Lymph % (Auto) 41.4 (20.5-60.0) % [place] % (Auto) 8.2 (1.7-12.0) % Eos % (Auto) 3.6 (0.9-7.0) % Baso % (Auto) 0.5 (0.2-2.0) % Neut # (Auto) 2.8 (1.4-6.5) 10^3/uL Lymph # (Auto) 2.6 (1.2-3.8) 10^3/uL [place] # (Auto) 0.5 (0.3-0.8) 10^3/uL Eos # (Auto) 0.2 (0.0-0.7) 10^3/uL Baso # (Auto) 0.0 (0.0-0.1) 10^3/uL Abs Immat Gran (auto) 0.03 (0.00-0.03) 10^3/uL Imm/Tot Granulo (auto) 0.5 (0.0-0.5) % PT 10.4 (9.0-11.6) sec INR 0.98 Sodium 137 (136-145) mmol/L Potassium 4.4 (3.5-5.1) mmol/L Chloride 103 (98-107) mmol/L Carbon Dioxide 30.5 (21.0-32.0) mmol/L Anion Gap 7.9 BUN 27.0 H (7.0-18.0) mg/dL Creatinine 1.13 (0.70-1.30) mg/dL Est GFR ( Amer) >60 (>=60) Est GFR (Non-Af Amer) >60 (>=60) BUN/Creatinine Ratio 23.9 Glucose 83 (74-106) mg/dL Calcium 9.0 (8.5-10.1) mg/dL Total Bilirubin 0.5 (0.2-1.0) mg/dL AST 13 L (15-37) U/L ALT 9 L (16-63) U/L Alkaline Phosphatase 103 (46-116) U/L Troponin I High Sens 5.9 (4.0-76.1) pg/mL NT-Pro-B Natriuret Pep 246.0 (<=900.0) pg/mL Total Protein 7.4 (6.4-8.2) g/dL Albumin 3.7 (3.4-5.0) g/dL Globulin 3.7 g/dL Albumin/Globulin Ratio 1.0 TSH 0.942 (0.358-3.740) uIU/mL Imaging Data CT scan - head: Attestation: I have reviewed the pertinent imaging results. Radiologist's impression: ITS Impressions Chest X-Ray 07/06/24 13:34 IMPRESSION: Elevated left hemidiaphragm with left basilar infiltrate Electronically authenticated by: LIZETH MCDONOUGH Date: 07/06/2024 14:[address] 07/06/24 13:35 IMPRESSION: Moderate atrophy No acute intracranial abnormality Electronically authenticated by: LIZETH MCDONOUGH Date: 07/06/2024 14:49 ECG Data Attestation: I personally reviewed and interpreted this ECG as follows: (Normal sinus rhythm at a rate of 54, no acute ST elevation or ectopy. EKG reviewed by attending physician) Discharge Plan Discharge Chief Complaint: Chest Pain Clinical Impression: High blood pressure, Headache, Infiltrate of lower lobe of left lung present on imaging study Patient Disposition: Home, Self-Care Time of Disposition Decision: 15:04 Condition: Good Prescriptions / Home Meds: New ondansetron 4 mg tablet,disintegrating 4 mg PO Q6H PRN (Reason: nausea and vomiting) Qty: 12 0RF cefdinir 300 mg capsule 300 mg PO BID 7 Days Qty: 14 0RF olhwepsioa-swpdhwvatpmop-neby [Fioricet] 50-300-40 mg capsule 1 cap PO Q6H PRN (Reason: headache) Qty: 12 0RF Rx Instructions: DX: R51.9 No Action carbidopa-levodopa 25-100 mg tablet 3 tab PO DAILY@0600 atorvastatin 10 mg tablet 10 mg PO .QHS acarbose 25 mg tablet 25 mg PO TIDWM Rx Instructions: 0800,1200,1800 diclofenac sodium 75 mg tablet,delayed release (DR/EC) 75 mg PO BID Patient Comments: 0800, 1800 montelukast 10 mg tablet 10 mg PO DAILY pregabalin 300 mg capsule 300 mg PO BID Patient Comments: 0800, 1800 tolterodine 4 mg capsule,extended release 24hr 4 mg PO DAILY midodrine 5 mg tablet 5 mg PO TID Patient Comments: 1200,1400,1800 topiramate 100 mg tablet 100 mg PO BID Patient Comments: AT 0800,1800 docusate sodium 100 mg capsule 100 mg PO DAILY PRN (Reason: constipation) ezetimibe 10 mg tablet 10 mg PO .QHS potassium citrate 15 mEq tablet extended release 15 meq PO .QHS carbidopa-levodopa 25-100 mg tablet extended release 1 tab PO TID Patient Comments: 1400,1800,2200 ciclopirox 0.77 % cream 1 applic TOPICAL BID venlafaxine 150 mg capsule,extended release 24hr 150 mg PO DAILY carbidopa-levodopa [Sinemet] 25-100 mg tablet 2 tab PO DAILY@1000 fludrocortisone 0.1 mg tablet 0.1 mg PO DAILY Rx Instructions: DAILY AT 0800 MAY GIVE 2 TABLETS IF SBP < 100 midodrine 5 mg tablet 10 mg PO TID Rx Instructions: 12 PM, 1400 AND 1800 do not give last dose of day after 6PM or within 4 hrs of bedtime carbidopa-levodopa [Sinemet] 25-100 mg tablet 1 tab PO TID Rx Instructions: 1400,1800,2200 duloxetine [Cymbalta] 60 mg capsule,delayed release(DR/EC) 60 mg PO .QHS tramadol 50 mg tablet 50 mg PO Q6H PRN (Reason: pain) 5 Days Qty: 20 0RF Excedrin Migraine 250-250-65 mg tablet 2 tab PO DAILY PRN (Reason: migraine headache) dicyclomine 10 mg capsule 10 mg PO BID Triad Wound Dressing Paste 1 applic topical TID PRN (Reason: skin irritation) ondansetron HCl 4 mg tablet 4 mg PO Q6H PRN (Reason: nausea and vomiting) sulfamethoxazole-trimethoprim [Bactrim DS] 800-160 mg tablet 1 tab PO BID 7 Days Qty: 14 0RF docusate sodium [Colace] 100 mg capsule 100 mg PO BID Qty: 10 0RF tramadol 50 mg tablet 50 mg PO Q6H PRN (Reason: pain) 2 Days Qty: 8 0RF Rx Instructions: DX: M54.5 Santyl 250 unit/gram ointment 1 applic TOPICAL DAILY metformin 500 mg tablet 500 mg PO DAILY sumatriptan succinate 50 mg tablet 50 mg PO Q2H PRN (Reason: migraine headache) Print Language: Romansh Instructions: Acute Headache (ED) Referrals: ELLEN ARIAS [Primary Care Provider] - 1 week
--- NOTE | 2024-07-06 13:45 | PC.NURSE ---
pt states his PT came to his house today and they checked his BP that ended up being elevated. Pt also has had headache for the last few days. States there's a little chest pain with it as well.
[2024-07-06] MEDS: HYDRALAZINE HCL 20 MG/ML VIAL IVP (13:50)
[2024-07-06] MEDS: BUTALB/ACETAMINOPHEN/CAFFEINE 50-325-40MG TABLET 1 TAB PO (13:50)
[2024-07-06 13:52] LABS: Basophils Percent Auto 0.5 % (0.2-2.0); Eosinophils Absolute Auto 0.2 10^3/uL (0.0-0.7); Eosinophils Percent Auto 3.6 % (0.9-7.0); Hematocrit 39.4 % (42.0-54.0); Hemoglobin 12.2 g/dL (14.0-18.0); Immature Granulocytes Abs Auto 0.03 10^3/uL (0.00-0.03); Immature Granulocytes Pct Auto 0.5 % (0.0-0.5); Lymphocytes Absolute Auto 2.6 10^3/uL (1.2-3.8); Lymphocytes Percent Auto 41.4 % (20.5-60.0); Mean Corpuscular Hemoglobin 27.7 pg (25.9-34.0); Mean Corpuscular Volume 89.3 fL (80.0-94.0); Monocytes Absolute Auto 0.5 10^3/uL (0.3-0.8); Monocytes Percent Auto 8.2 % (1.7-12.0); Neutrophils Absolute Auto 2.8 10^3/uL (1.4-6.5); Neutrophils Percent Auto 45.8 % (43.0-75.0); Platelet Count 201 10^3/uL (150-450); Red Blood Count 4.41 10^6/uL (4.70-6.10); Red Cell Distribution Width 15.1 % (11.0-15.0); White Blood Count 6.2 10^3/uL (4.0-11.0)
[2024-07-06 14:03] LABS: INR 0.98; Prothrombin Time 10.4 sec (9.0-11.6)
[2024-07-06 14:04] LABS: Alanine Aminotransferase 9 U/L (16-63); Albumin Level 3.7 g/dL (3.4-5.0); Alkaline Phosphatase 103 U/L (46-116); Anion Gap 7.9; Aspartate Amino Transferase 13 U/L (15-37); BUN Creatinine Ratio 23.9; Bilirubin Total 0.5 mg/dL (0.2-1.0); Carbon Dioxide 30.5 mmol/L (21.0-32.0); Chloride 103 mmol/L (98-107); Estimated GFR (African America >60 (>=60); Estimated GFR (Non-African Ame >60 (>=60); Globulin 3.7 g/dL; Glucose 83 mg/dL (74-106); Potassium 4.4 mmol/L (3.5-5.1); Sodium 137 mmol/L (136-145); Total Protein 7.4 g/dL (6.4-8.2)
[2024-07-06 14:13] LABS: Thyroid Stimulating Hormone 0.942 uIU/mL (0.358-3.740); Troponin I High Sensitivity 5.9 pg/mL (4.0-76.1)
[2024-07-06] MEDS: ONDANSETRON PF 4 MG/2 ML VIAL IV (14:28)
[2024-07-06] MEDS: OXYCODONE HCL/ACETAMINOPHEN 5MG/325MG 1 TAB PO (15:19)
== END 2024-07-06 15:42 | disposition home or self-care (01) ==
PROVIDERS: Physician Assistant; Emergency Provider Emergency Medicine; PCP Family Medicine
DX: I10 Essential (primary) hypertension (principal); R51.9 Headache, unspecified; R91.8 Other nonspecific abnormal finding of lung field; Z93.59 Other cystostomy status; G20.A1 Parkinson's disease without dyskinesia, without mention of fluctuations; Z87.891 Personal history of nicotine dependence; G89.29 Other chronic pain; M54.9 Dorsalgia, unspecified
CPT/HCPCS: 36415; 70450; 71045; 80053; 83880; 84443; 84484; 85025; 85610; 93005; 96374; 96375; 99285; J0360; J2405

== ENCOUNTER 2024-08-11 14:30 | Emergency (ER) | payer MEDICARE, OTHER, SELFPAY ==
[2024-08-11] VITALS (17 sets, daily range): BP systolic 118–188; BP diastolic 60–113; PULSE 58–82; TEMP 36.6; O2SAT 89–98; BMI 30.1
--- NOTE | 2024-08-11 15:03 | XR_ITS ---
The [address] [address] Patient Name: ALISIA CORREA MRN: [id number] date: 1960 Sex: M Assigned Patient Location: ER Current Patient Location: ER Accession/Order Number: [id number] Exam Date: 08/11/2024 15:28 Report Date: 08/11/2024 15:55 At the request of: MERCEDEZ CRAMER Procedure: XR chest 1V EXAMINATION: XR chest 1V HISTORY: tightness , chest pain, shortness of breath COMPARISON: XR chest 07/06/2024 FINDINGS: LUNGS: Elevated left hemidiaphragm and persistent mild strandy opacities within left lung base. Right lung is clear. VASCULATURE: No increased pulmonary vasculature. PLEURA: No pneumothorax, effusion, or pleural thickening. CARDIAC: No cardiomegaly or cardiac silhouette abnormality. MEDIASTINUM: No visible mass or adenopathy. BONES: Mechanical fusion of lower cervical spine. Stable FLAIR electrodes projecting over lower thoracic central canal. OTHER: Negative. XR/XR chest 1V IMPRESSION: 1. Stable elevated left hemidiaphragm and mild left basilar atelectasis versus infiltrates. Electronically authenticated by: DON MURRAY Date: 08/11/2024 15:55
--- NOTE | 2024-08-11 15:03 | ECG_ITS ---
[facility] Test Date: 2024-08-11 Pat Name: ALISIA CORREA Department: Room: - Gender: Male [employer]: : 1960 Requested By: Jaden Crabtree Order Number: [id number] Reading MD: VIVIAN NUNEZ Measurements Intervals [place] Rate: 73 P: 4 [place]: 162 QRS: -34 QRSD: 90 T: 15 QT: 412 QTc: 438 Interpretive Statements 1100 Sinus rhythm 7200 Abnormal left axis deviation 8003 Consistent with pulmonary disease 9150 abnormal ECG Compared to ECG 07/06/2024 13:33:44 No significant changes Electronically Signed On 08-12-2024 6:47:36 EDT by VIVIAN NUNEZ
[2024-08-11] MEDS: KETOROLAC TROMETHAMINE 30 MG/ML VIAL 15 MG IVP (15:20)
[2024-08-11] MEDS: ONDANSETRON PF 4 MG/2 ML VIAL IV (15:20)
[2024-08-11 15:47] LABS: Basophils Percent Auto 0.3 % (0.2-2.0); Eosinophils Absolute Auto 0.2 10^3/uL (0.0-0.7); Eosinophils Percent Auto 2.3 % (0.9-7.0); Hematocrit 42.8 % (42.0-54.0); Immature Granulocytes Abs Auto 0.02 10^3/uL (0.00-0.03); Immature Granulocytes Pct Auto 0.3 % (0.0-0.5); Lymphocytes Absolute Auto 2.5 10^3/uL (1.2-3.8); Lymphocytes Percent Auto 36.2 % (20.5-60.0); Mean Corpuscular HGB Conc 30.4 g/dL (29.9-35.2); Mean Corpuscular Hemoglobin 27.2 pg (25.9-34.0); Mean Corpuscular Volume 89.5 fL (80.0-94.0); Mean Platelet Volume 12.1 fL (9.5-13.5); Monocytes Absolute Auto 0.6 10^3/uL (0.3-0.8); Monocytes Percent Auto 8.7 % (1.7-12.0); Neutrophils Absolute Auto 3.7 10^3/uL (1.4-6.5); Neutrophils Percent Auto 52.2 % (43.0-75.0); Platelet Count 192 10^3/uL (150-450); Red Blood Count 4.78 10^6/uL (4.70-6.10); Red Cell Distribution Width 14.8 % (11.0-15.0)
[2024-08-11 15:50] LABS: Bilirubin Urine NEGATIVE (NEGATIVE); Blood Urine TRACE-I (NEGATIVE); Clarity Urine CLEAR (CLEAR); Color Urine LT. YELLOW (YELLOW); Glucose Urine UA NEGATIVE (NEGATIVE); Ketones Urine NEGATIVE (NEGATIVE); Leukocyte Esterase Urine LARGE (NEGATIVE); Nitrite Urine POSITIVE (NEGATIVE); Protein Urine NEGATIVE (NEG/TRACE); Specific Gravity Urine <=1.005 (1.005-1.025); Urine Microscopic Indicated YES; Urobilinogen Urine 0.2 EU/dL (0.2-1.0)
[2024-08-11 15:54] LABS: Internal Control Within Normal Limits; SARS-CoV-2 Ag NEGATIVE (NEGATIVE)
[2024-08-11 15:58] LABS: Bacteria Urine SMALL #/HPF (NONE SEEN); Cast Seen? NONE SEEN #/LPF (NONE SEEN); Crystals Seen? None Seen #/HPF (None Seen); Mucus Urine TRACE (NONE SEEN); Squamous Epithelial Cell Urine FEW #/LPF (NONE/RARE); Urine Culture Indicated YES; WBC Urine 20-50 #/HPF (NONE SEEN)
[2024-08-11 16:07] LABS: INR 0.97; Prothrombin Time 10.3 sec (9.0-11.6)
[2024-08-11 16:18] LABS: Alanine Aminotransferase 9 U/L (16-63); Albumin Globulin Ratio 0.9; Albumin Level 3.7 g/dL (3.4-5.0); Alkaline Phosphatase 102 U/L (46-116); Anion Gap 16.4; Aspartate Amino Transferase 17 U/L (15-37); BUN Creatinine Ratio 16.5; Bilirubin Total 0.5 mg/dL (0.2-1.0); Calcium 9.4 mg/dL (8.5-10.1); Carbon Dioxide 24.9 mmol/L (21.0-32.0); Chloride 107 mmol/L (98-107); Estimated GFR (African America >60 (>=60 mL/min/1.73m^2); Estimated GFR (Non-African Ame 54 (>=60 mL/min/1.73m^2); Globulin 3.9 g/dL; Glucose 66 mg/dL (74-106); Potassium 4.3 mmol/L (3.5-5.1); Sodium 144 mmol/L (136-145); Total Protein 7.6 g/dL (6.4-8.2)
[2024-08-11 16:20] LABS: Troponin I High Sensitivity 4.3 pg/mL (4.0-76.1)
--- NOTE | 2024-08-11 17:26 | ED.GENADUL1 ---
HPI HPI - General Adult General Chief complaint: Chest Pain Stated complaint: CHEST PAIN, HIGH BP Time Seen by Provider: 08/11/24 14:53 Source: patient and family Mode of arrival: Wheelchair Limitations: no limitations History of Present Illness HPI narrative: The patient is a 63-year-old male who has been having recurrent complaint of headache associated with generalized weakness, the patient symptoms are nonspecific he is complaining sometimes of chest tightness although there is no chest pain he denies any cough he denies any shortness of breath, he also denying any fever or chills with generalized weakness The patient also mentioned that he had similar symptoms almost a month ago but few days ago he started having the same symptoms, the headache is frontal not associated with any photosensitivity, Related Data Home Medications ?Medication ?Instructions ?Recorded ?Confirmed atorvastatin 10 mg tablet 10 mg PO .QHS 08/20/23 07/06/24 carbidopa 25 mg-levodopa 100 mg 3 tab PO DAILY@0600 08/20/23 07/06/24 tablet docusate sodium 100 mg capsule 100 mg PO DAILY PRN constipation 08/20/23 07/06/24 ezetimibe 10 mg tablet 10 mg PO .QHS 08/20/23 07/06/24 midodrine 5 mg tablet 5 mg PO TID 08/20/23 07/06/24 montelukast 10 mg tablet 10 mg PO DAILY 08/20/23 07/06/24 pregabalin 300 mg capsule 300 mg PO BID 08/20/23 07/06/24 tolterodine 4 mg capsule,extended 4 mg PO DAILY 08/20/23 07/06/24 release 24 hr topiramate 100 mg tablet 100 mg PO BID 08/20/23 07/06/24 carbidopa ER 25 mg-levodopa 100 mg 1 tab PO TID 08/21/23 07/06/24 tablet,extended release potassium citrate 15 mEq (1,620 15 meq PO .QHS 08/21/23 07/06/24 mg) tablet,extended release carbidopa 25 mg-levodopa 100 mg 2 tab PO DAILY@1000 04/23/24 07/06/24 tablet (Sinemet) ciclopirox 0.77 % topical cream 1 applic topical BID 04/23/24 07/06/24 venlafaxine 150 mg 150 mg PO DAILY 04/23/24 07/06/24 capsule,extended release 24 hr carbidopa 25 mg-levodopa 100 mg 1 tab PO TID 04/24/24 07/06/24 tablet (Sinemet) duloxetine 60 mg capsule,delayed 60 mg PO .QHS 04/24/24 07/06/24 release (Cymbalta) fludrocortisone 0.1 mg tablet 0.1 mg PO DAILY 04/24/24 07/06/24 midodrine 5 mg tablet 10 mg PO TID 04/24/24 05/16/24 flyfflw-tpbnqpfwixnsi-kqpzszkg 250 2 tab PO DAILY PRN migraine 05/12/24 07/06/24 mg-250 mg-65 mg tablet (Excedrin headache Migraine) dicyclomine 10 mg capsule 10 mg PO BID 05/12/24 07/06/24 ondansetron HCl 4 mg tablet 4 mg PO Q6H PRN nausea and vomiting 05/12/24 07/06/24 wound dressings (Triad Wound 1 applic topical TID PRN skin 05/12/24 07/06/24 Dressing paste) irritation collagenase clostridium histo. 250 1 applic topical DAILY 07/06/24 07/06/24 unit/gram topical ointment (Santyl) sumatriptan succinate 50 mg tablet 50 mg PO Q2H PRN migraine headache 07/06/24 07/06/24 Previous Rx's ?Medication ?Instructions ?Recorded tramadol 50 mg tablet 50 mg PO Q6H PRN pain 5 days #20 04/27/24 tabs docusate sodium 100 mg capsule 100 mg PO BID #10 caps 06/22/24 (Colace) sulfamethoxazole 800 1 tab PO BID 7 days #14 tabs 06/22/24 mg-trimethoprim 160 mg tablet (Bactrim DS) tramadol 50 mg tablet 50 mg PO Q6H PRN pain 2 days #8 06/22/24 tabs igqabakkju-lolgavdnuqojn-ldiefcbx 1 cap PO Q6H PRN headache #12 caps 07/06/24 50 mg-300 mg-40 mg capsule (Fioricet) cefdinir 300 mg capsule 300 mg PO BID 7 days #14 caps 07/06/24 ondansetron 4 mg disintegrating 4 mg PO Q6H PRN nausea and 07/06/24 tablet vomiting #12 tabs Allergies Allergy/AdvReac Type Severity Reaction Status Date / Time clonazepam Allergy Severe Difficulty Verified 06/22/24 18:48 Breathing levofloxacin (From Levaquin) Allergy Severe Difficulty Verified 06/22/24 18:48 Breathing moxifloxacin Allergy Intermediate Hives Verified 06/22/24 18:48 celecoxib (From Celebrex) Allergy Mild Hives Verified 06/22/24 18:48 erythromycin base Allergy Mild Gastrointestinal Verified 06/22/24 18:48 Upset Opioid HPI Opioid Management Most Recent Opioid Data: Last Pain Scale 3 04/27/24 08:00 04/27/24 Last Pain Intensity 5 04/25/24 09:14 04/25/24 Last ORT Total Score 0 04/23/24 20:47 04/23/24 Last ORT Risk Category Low Risk 04/23/24 20:47 04/23/24 Review of Systems ROS Status of ROS 10 or more systems reviewed and unremarkable except as noted in history and below [facility] Medical History (Updated 08/11/24 @ 16:55 by Lilian Resendez MD) Hydronephrosis with ureteral calculus ?N13.2 - Hydronephrosis with renal and ureteral calculous obstruction (ICD-10) Anemia in chronic illness ?D63.8 - Anemia in other chronic diseases classified elsewhere (ICD-10) Sacral decubitus ulcer ?L89.159 - Pressure ulcer of sacral region, unspecified stage (ICD-10) 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 ?G90.3 - Multi-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 (ICD-10) Type 2 diabetes mellitus with diabetic polyneuropathy ?E11.42 - Type 2 diabetes mellitus with diabetic polyneuropathy (ICD-10) Parkinson disease ?G20.A1 - Parkinson's disease without dyskinesia, without mention of fluctuations (ICD-10) Generalized weakness ?R53.1 - Weakness (ICD-10) Suprapubic catheter ?Z93.59 - Other cystostomy status (ICD-10) COPD (chronic obstructive pulmonary disease) ?J44.9 - Chronic obstructive pulmonary disease, unspecified (ICD-10) Breath shortness ?R06.02 - Shortness of breath (ICD-10) Urinary tract infection ?N39.0 - Urinary tract infection, site not specified (ICD-10) Complication, blocked Ferro catheter ?T83.091A - Other mechanical complication of indwelling urethral catheter, initial encounter (ICD-10) UTI (urinary tract infection) ?N39.0 - Urinary tract infection, site not specified (ICD-10) Bladder infection, chronic ?N30.20 - Other chronic cystitis without hematuria (ICD-10) Weakness of both lower extremities ?R29.898 - Other symptoms and signs involving the musculoskeletal system (ICD-10) Neurogenic bladder ?N31.9 - Neuromuscular dysfunction of bladder, unspecified (ICD-10) Neuropathy ?G62.9 - Polyneuropathy, unspecified (ICD-10) Tonsillectomy planned FH: bilateral hip replacements ?Z82.69 - Family history of other diseases of the musculoskeletal system and connective tissue (ICD-10) Enlarged prostate ?N40.0 - Benign prostatic hyperplasia without lower urinary tract symptoms (ICD-10) 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, unspecified (ICD-10) 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 - Malignant (primary) neoplasm, unspecified (ICD-10) Esophageal cancer ?C15.9 - Malignant neoplasm of esophagus, unspecified (ICD-10) Barretts esophagus ?K22.70 - Rust's esophagus without dysplasia (ICD-10) GERD without esophagitis ?K21.9 - Gastro-esophageal reflux disease without esophagitis (ICD-10) Asthma ?J45.909 - Unspecified asthma, uncomplicated (ICD-10) Pneumonia ?J18.9 - Pneumonia, unspecified organism (ICD-10) COVID-19 ?U07.1 - COVID-19 (ICD-10) Kidney stones ?N20.0 - Calculus of kidney (ICD-10) Bladder stones ?N21.0 - Calculus in bladder (ICD-10) Type 2 diabetes mellitus ?E11.9 - Type 2 diabetes mellitus without complications (ICD-10) Hypotension ?I95.9 - Hypotension, unspecified (ICD-10) Surgical History (Updated 08/06/23 @ 08:15 by Jorge Contreras) H/O cystoscopy ?Z98.890 - Other specified postprocedural states (ICD-10) S/P insertion of spinal cord stimulator ?Z96.89 - Presence of other specified functional implants (ICD-10) Status post right rotator cuff repair ?Z98.890 - Other specified postprocedural states (ICD-10) H/O hand surgery ?Z98.890 - Other specified postprocedural states (ICD-10) History of left knee replacement ?Z96.652 - Presence of left artificial knee joint (ICD-10) History of left shoulder replacement ?Z96.612 - Presence of left artificial shoulder joint (ICD-10) Previous back surgery ?Z98.890 - Other specified postprocedural states (ICD-10) H/O gastric bypass ?Z98.84 - Bariatric surgery status (ICD-10) Family History (Updated 08/20/23 @ 20:33 by Barbara Mauro RN) Mother Family history of hypertension Family history of diabetes mellitus Family history of COPD (chronic obstructive pulmonary disease) Brother Family history of cancer Other Family history of CHF (congestive heart failure) Social History Within the past year, how often did you have a drink containing alcohol: never Within the past year, how often did you have six or more drinks on one occasion: never Score interpretation: A score less than 4 is consistent with normal alcohol consumption. Smoking status: Former smoker Highest level of school completed/degree received: some college, no degree Are you now , , , , never or living with a partner: In a typical week, how many times do you talk on the telephone with family, friends, or neighbors: 3 or more times per week How often do you get together with friends or relatives: 3 or more times per week Little interest or pleasure in doing things: not at all Feeling down, depressed, or hopeless: not at all Feel stressed/tense/nervous/anxious/difficulty sleeping: to some extent Do you think of yourself as: straight/heterosexual Gender Identity: male Exam Narrative Exam Narrative: Nurses notes and vital signs reviewed and patient is not hypoxic. General: Well-appearing and in no apparent distress. Skin: Warm, dry, no pallor noted. No rash. Head: Normocephalic, atraumatic. Neck: Supple, non-tender. Eye: Pupils are equal, round and EOMI. No scleral icterus. Ears, Nose, Mouth, and Throat: TM are clear, no nasal mucosal hypertrophy. Oral mucosa is dry no posterior oropharynx erythema, uvula is mid-line Cardiovascular: Regular Rate and Rhythm without murmur, gallop or rub. Respiratory: No accessory muscle use or respiratory distress. Lungs are clear to auscultation, no wheezing, rales or rhonchi Chest Wall: no tenderness Back: No midline thoracic or lumbar vertebral tenderness. No CVA tenderness Musculoskeletal: normal ROM, the patient have purple discoloration of both feet which is a normal finding for him as he have normal anterior tibial pulse in both feet and he follow-up with us for evaluation by vascular he had a similar presentation before GI: Abdomen is soft, non-distended. Normal bowel sounds. No masses appreciated. No tenderness to palpation. No rebound, guarding, or rigidity noted. The patient have a suprapubic catheter in place draining clear urine Neurological: A&O x4. No cranial nerve dysfunction observed. No truncal ataxia. Moves all extremities. Sensation intact. Constitutional Vital Signs, click to edit/add: Last Vital Signs Temp 97.9 F 08/11/24 14:45 Pulse 59 L 08/11/24 16:40 Resp 18 08/11/24 16:40 BP 158/113 H 08/11/24 16:31 Pulse Ox 98 08/11/24 16:40 O2 Del Method Room Air 08/11/24 14:45 Course Vital Signs Vital signs: Vital Signs Pulse Oximetry 97 08/11/24 14:42 Temperature 97.9 F 08/11/24 14:45 Pulse Rate 59 L 08/11/24 16:40 Respiratory Rate 18 08/11/24 16:40 Blood Pressure 158/113 H 08/11/24 16:31 Pulse Oximetry 98 08/11/24 16:40 Oxygen Delivery Method Room Air 08/11/24 14:45 Medical Decision Making [facility] Narrative Medical decision making narrative: The patient EKG showing sinus rhythm with a heart rate of [address] elevation or depression The patient initially thought that his blood pressure is elevated but reading here showed that his blood pressure was normal CBC showed no leukocytosis the chemistry shows mild acute kidney injury was 1.3 creatinine The patient blood sugar though was found to be in the 60s I did ask the patient about his symptoms and when asking the patient about his symptoms he mentioned that he has been having multiple episodes of hypoglycemia over the last few weeks. He mentioned that his blood sugars sometimes go to down as 50s when he wakes up from sleep, and he does not have to get a lot of candies before going to sleep so that he avoid hypoglycemia The patient still taking metformin and a carbose according to his medication list and I did explain to him that the hypoglycemia could be the reason for his nonspecific headache The patient right now will stop the carbose and the metformin and also diclofenac sodium He will drink hydrate 64 ounces of water daily and he will follow-up with his primary care within few days for another evaluation The patient had a CT head done exactly a month ago for similar reason and right now there is no alarming symptoms that require another CAT scan Lab Data Labs: Lab Results 08/11/24 08/11/24 08/11/24 Range/Units 15:12 15:15 15:25 WBC 7.0 (4.0-11.0) 10^3/uL RBC 4.78 (4.70-6.10) 10^6/uL Hgb 13.0 L (14.0-18.0) g/dL Hct 42.8 (42.0-54.0) % MCV 89.5 (80.0-94.0) fL MCH 27.2 (25.9-34.0) pg MCHC 30.4 (29.9-35.2) g/dL RDW 14.8 (11.0-15.0) % Plt Count 192 (150-450) 10^3/uL MPV 12.1 (9.5-13.5) fL Neut % (Auto) 52.2 (43.0-75.0) % Lymph % (Auto) 36.2 (20.5-60.0) % Sebastian % (Auto) 8.7 (1.7-12.0) % Eos % (Auto) 2.3 (0.9-7.0) % Baso % (Auto) 0.3 (0.2-2.0) % Neut # (Auto) 3.7 (1.4-6.5) 10^3/uL Lymph # (Auto) 2.5 (1.2-3.8) 10^3/uL Sebastian # (Auto) 0.6 (0.3-0.8) 10^3/uL Eos # (Auto) 0.2 (0.0-0.7) 10^3/uL Baso # (Auto) 0.0 (0.0-0.1) 10^3/uL Abs Immat Gran (auto) 0.02 (0.00-0.03) 10^3/uL Imm/Tot Granulo (auto) 0.3 (0.0-0.5) % PT 10.3 (9.0-11.6) sec INR 0.97 Sodium 144 (136-145) mmol/L Potassium 4.3 (3.5-5.1) mmol/L Chloride 107 (98-107) mmol/L Carbon Dioxide 24.9 (21.0-32.0) mmol/L Anion Gap 16.4 BUN 22.0 H (7.0-18.0) mg/dL Creatinine 1.33 H (0.70-1.30) mg/dL Est GFR ( Amer) >60 (>=60 mL/min/1.73m^2) Est GFR (Non-Af Amer) 54 L (>=60 mL/min/1.73m^2) BUN/Creatinine Ratio 16.5 Glucose 66 L (74-106) mg/dL Calcium 9.4 (8.5-10.1) mg/dL Total Bilirubin 0.5 (0.2-1.0) mg/dL AST 17 (15-37) U/L ALT 9 L (16-63) U/L Alkaline Phosphatase 102 (46-116) U/L Troponin I High Sens 4.3 (4.0-76.1) pg/mL Total Protein 7.6 (6.4-8.2) g/dL Albumin 3.7 (3.4-5.0) g/dL Globulin 3.9 g/dL Albumin/Globulin Ratio 0.9 Lipase 40.0 (16.0-77.0) U/L Urine Color Lt. yellow (YELLOW) Urine Clarity Clear (CLEAR) Urine pH 6.0 (5.0-9.0) Ur Specific [place] <=1.005 A (1.005-1.025) Urine Protein Negative (NEG/TRACE) mg/dL Urine Glucose (UA) Negative (NEGATIVE) mg/dL Urine Ketones Negative (NEGATIVE) mg/dL Urine Occult Blood Trace-i (NEGATIVE) Urine Nitrite Positive A (NEGATIVE) Urine Bilirubin Negative (NEGATIVE) Urine Urobilinogen 0.2 (0.2-1.0) EU/dL Ur Leukocyte Esterase Large A (NEGATIVE) Urine RBC 2-5 A (0-2) #/HPF Urine WBC 20-50 A (NONE SEEN) #/HPF Ur Squamous Epith Cells Few A (NONE/RARE) #/LPF Urine Crystals None seen (None Seen) #/HPF Urine Bacteria Small A (NONE SEEN) #/HPF Urine Casts None seen (NONE SEEN) #/LPF Urine Mucus Trace A (NONE SEEN) Ur Culture Indicated? Yes SARS-CoV-2 Ag (CV2AG) Negative (NEGATIVE) Discharge Plan Discharge Chief Complaint: Chest Pain Clinical Impression: Hypoglycemia, FLAVIA (acute kidney injury) Patient Disposition: Home, Self-Care Time of Disposition Decision: 16:53 Condition: Good Prescriptions / Home Meds: Discontinued acarbose 25 mg tablet 25 mg PO TIDWM Rx Instructions: 0800,1200,1800 diclofenac sodium 75 mg tablet,delayed release (DR/EC) 75 mg PO BID Patient Comments: 0800, 1800 metformin 500 mg tablet 500 mg PO DAILY No Action carbidopa-levodopa 25-100 mg tablet 3 tab PO DAILY@0600 atorvastatin 10 mg tablet 10 mg PO .QHS montelukast 10 mg tablet 10 mg PO DAILY pregabalin 300 mg capsule 300 mg PO BID Patient Comments: 0800, 1800 tolterodine 4 mg capsule,extended release 24hr 4 mg PO DAILY midodrine 5 mg tablet 5 mg PO TID Patient Comments: 1200,1400,1800 topiramate 100 mg tablet 100 mg PO BID Patient Comments: AT 0800,1800 docusate sodium 100 mg capsule 100 mg PO DAILY PRN (Reason: constipation) ezetimibe 10 mg tablet 10 mg PO .QHS potassium citrate 15 mEq tablet extended release 15 meq PO .QHS carbidopa-levodopa 25-100 mg tablet extended release 1 tab PO TID Patient Comments: 1400,1800,2200 ciclopirox 0.77 % cream 1 applic TOPICAL BID venlafaxine 150 mg capsule,extended release 24hr 150 mg PO DAILY carbidopa-levodopa [Sinemet] 25-100 mg tablet 2 tab PO DAILY@1000 fludrocortisone 0.1 mg tablet 0.1 mg PO DAILY Rx Instructions: DAILY AT 0800 MAY GIVE 2 TABLETS IF SBP < 100 midodrine 5 mg tablet 10 mg PO TID Rx Instructions: 12 PM, 1400 AND 1800 do not give last dose of day after 6PM or within 4 hrs of bedtime carbidopa-levodopa [Sinemet] 25-100 mg tablet 1 tab PO TID Rx Instructions: 1400,1800,2200 duloxetine [Cymbalta] 60 mg capsule,delayed release(DR/EC) 60 mg PO .QHS tramadol 50 mg tablet 50 mg PO Q6H PRN (Reason: pain) 5 Days Qty: 20 0RF Excedrin Migraine 250-250-65 mg tablet 2 tab PO DAILY PRN (Reason: migraine headache) dicyclomine 10 mg capsule 10 mg PO BID Triad Wound Dressing Paste 1 applic topical TID PRN (Reason: skin irritation) ondansetron HCl 4 mg tablet 4 mg PO Q6H PRN (Reason: nausea and vomiting) sulfamethoxazole-trimethoprim [Bactrim DS] 800-160 mg tablet 1 tab PO BID 7 Days Qty: 14 0RF docusate sodium [Colace] 100 mg capsule 100 mg PO BID Qty: 10 0RF tramadol 50 mg tablet 50 mg PO Q6H PRN (Reason: pain) 2 Days Qty: 8 0RF Rx Instructions: DX: M54.5 Santyl 250 unit/gram ointment 1 applic TOPICAL DAILY sumatriptan succinate 50 mg tablet 50 mg PO Q2H PRN (Reason: migraine headache) ondansetron 4 mg tablet,disintegrating 4 mg PO Q6H PRN (Reason: nausea and vomiting) Qty: 12 0RF cefdinir 300 mg capsule 300 mg PO BID 7 Days Qty: 14 0RF abpbfplhwk-ookslewjljjrw-tjjf [Fioricet] 50-300-40 mg capsule 1 cap PO Q6H PRN (Reason: headache) Qty: 12 0RF Rx Instructions: DX: R51.9 Print Language: Malian Instructions: Acute Kidney Injury (DC), Hypoglycemia in a Person with Diabetes (ED) Referrals: ELLEN ARIAS [Primary Care Provider] - 1 week
[2024-08-11 17:52] LABS: Glucometer 86 mg/dL (74-106)
== END 2024-08-11 17:53 | disposition home or self-care (01) ==
PROVIDERS: Emergency Provider Emergency Medicine; PCP Family Medicine
DX: N17.9 Acute kidney failure, unspecified (principal); E11.649 Type 2 diabetes mellitus with hypoglycemia without coma; Z87.891 Personal history of nicotine dependence; R82.90 Unspecified abnormal findings in urine
CPT/HCPCS: 36415; 71045; 80053; 81001; 83690; 84484; 85025; 85610; 87086; 87811; 93005; 96374; 96375; 99285; J1885; J2405

== ENCOUNTER 2024-08-15 10:32 | Outpatient (RCR) | payer MEDICARE, OTHER, SELFPAY | END 2024-08-25 11:56 | disposition home or self-care (01) | LOC: PT 10:32 | PROVIDERS: PCP Family Medicine; Visit Provider Family Medicine | DX: R53.1 Weakness (principal); M54.9 Dorsalgia, unspecified; G20.C Parkinsonism, unspecified | CPT/HCPCS: 97112; 97163 ==

== ENCOUNTER 2024-12-13 17:31 | Emergency (ER) | payer MEDICARE, OTHER, SELFPAY ==
[2024-12-13] VITALS (35 sets, daily range): BP systolic 141–172; BP diastolic 89–102; PULSE 59–70; TEMP 36.6; O2SAT 93–98; BMI 32.3
--- NOTE | 2024-12-13 17:59 | XR_ITS ---
The [address] [address] Patient Name: ALISIA CORREA MRN: [id number] date: 1960 Sex: M Assigned Patient Location: ER Current Patient Location: ED.MAIN Accession/Order Number: [id number] Exam Date: 12/13/2024 19:20 Report Date: 12/13/2024 19:22 At the request of: MERCEDEZ CRAMER MD Procedure: XR chest 1V XR chest 1V 12/13/2024 6:47 PM SIGNS AND SYMPTOMS: ^sob PROTOCOL: Frontal radiograph of the chest COMPARISON: 08/11/2024 FINDINGS: The trachea is midline. The heart and mediastinal structures are within normal limits. There is chronic elevation left hemidiaphragm with dependent scarring or atelectasis at the left lung base. There is evidence of prior anterior fusion of the lower cervical spine. Degenerative changes are noted in the shoulders with postoperative changes including arthroplasty hardware in the left. A spinal cord stimulator is present. The bony thorax is intact. XR/XR chest 1V IMPRESSION: Chronic elevation of the left hemidiaphragm is noted with dependent atelectasis or scarring at the left lung base similar to the prior radiographs. Impression dictated by: Loi Bowen M.D.12/13/2024 7:22 PM Dictation Location: [place] [address] Electronically authenticated by: [id number] Y Date: 12/13/2024 19:22
--- NOTE | 2024-12-13 17:59 | ECG_ITS ---
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
[2024-12-13 18:48] LABS: Basophils Percent Auto 0.6 % (0.2-2.0); Eosinophils Absolute Auto 0.2 10^3/uL (0.0-0.7); Eosinophils Percent Auto 4.1 % (0.9-7.0); Hematocrit 41.5 % (42.0-54.0); Hemoglobin 12.5 g/dL (14.0-18.0); Immature Granulocytes Abs Auto 0.01 10^3/uL (0.00-0.03); Immature Granulocytes Pct Auto 0.2 % (0.0-0.5); Lymphocytes Absolute Auto 1.8 10^3/uL (1.2-3.8); Lymphocytes Percent Auto 39.5 % (20.5-60.0); Mean Corpuscular HGB Conc 30.1 g/dL (29.9-35.2); Mean Corpuscular Hemoglobin 28.4 pg (25.9-34.0); Mean Corpuscular Volume 94.3 fL (80.0-94.0); Mean Platelet Volume 13.4 fL (9.5-13.5); Monocytes Absolute Auto 0.4 10^3/uL (0.3-0.8); Monocytes Percent Auto 9.5 % (1.7-12.0); Neutrophils Absolute Auto 2.1 10^3/uL (1.4-6.5); Neutrophils Percent Auto 46.1 % (43.0-75.0); Platelet Count 144 10^3/uL (150-450); White Blood Count 4.6 10^3/uL (4.0-11.0)
--- NOTE | 2024-12-13 18:49 | ED_ITS ---
HPI HPI - General Adult General Chief complaint: Chest Pain Stated complaint: Chest Pain Shortness of Breath Time Seen by Provider: 12/13/24 17:53 Source: patient Mode of arrival: Wheelchair Limitations: no limitations History of Present Illness HPI narrative: The patient have a history of chronic Ferro catheter presented to us after he recently was evaluated by his urologist for possible urine infection he was treated with Bactrim multiple times throughout the last 2 weeks The patient presented today with the chest pain and difficulty breathing that started only today, associated with nausea, the pain is pressure-like associated with difficulty breathing Related Data Home Medications ?Medication ?Instructions ?Recorded ?Confirmed atorvastatin 10 mg tablet 10 mg PO .QHS 08/20/23 07/06/24 carbidopa 25 mg-levodopa 100 mg 3 tab PO DAILY@0600 08/20/23 07/06/24 tablet docusate sodium 100 mg capsule 100 mg PO DAILY PRN constipation 08/20/23 07/06/24 ezetimibe 10 mg tablet 10 mg PO .QHS 08/20/23 07/06/24 midodrine 5 mg tablet 5 mg PO TID 08/20/23 07/06/24 montelukast 10 mg tablet 10 mg PO DAILY 08/20/23 07/06/24 pregabalin 300 mg capsule 300 mg PO BID 08/20/23 07/06/24 tolterodine 4 mg capsule,extended 4 mg PO DAILY 08/20/23 07/06/24 release 24 hr topiramate 100 mg tablet 100 mg PO BID 08/20/23 07/06/24 carbidopa ER 25 mg-levodopa 100 mg 1 tab PO TID 08/21/23 07/06/24 tablet,extended release potassium citrate 15 mEq (1,620 15 meq PO .QHS 08/21/23 07/06/24 mg) tablet,extended release carbidopa 25 mg-levodopa 100 mg 2 tab PO DAILY@1000 04/23/24 07/06/24 tablet (Sinemet) ciclopirox 0.77 % topical cream 1 applic topical BID 04/23/24 07/06/24 venlafaxine 150 mg 150 mg PO DAILY 04/23/24 07/06/24 capsule,extended release 24 hr carbidopa 25 mg-levodopa 100 mg 1 tab PO TID 04/24/24 07/06/24 tablet (Sinemet) duloxetine 60 mg capsule,delayed 60 mg PO .QHS 04/24/24 07/06/24 release (Cymbalta) fludrocortisone 0.1 mg tablet 0.1 mg PO DAILY 04/24/24 07/06/24 midodrine 5 mg tablet 10 mg PO TID 04/24/24 05/16/24 gkjbivs-ubkrvdlrxyfbw-yxtwslox 250 2 tab PO DAILY PRN migraine 05/12/24 07/06/24 mg-250 mg-65 mg tablet (Excedrin headache Migraine) dicyclomine 10 mg capsule 10 mg PO BID 05/12/24 07/06/24 ondansetron HCl 4 mg tablet 4 mg PO Q6H PRN nausea and vomiting 05/12/24 07/06/24 wound dressings (Triad Wound 1 applic topical TID PRN skin 05/12/24 07/06/24 Dressing paste) irritation collagenase clostridium histo. 250 1 applic topical DAILY 07/06/24 07/06/24 unit/gram topical ointment (Santyl) sumatriptan succinate 50 mg tablet 50 mg PO Q2H PRN migraine headache 07/06/24 07/06/24 Previous Rx's ?Medication ?Instructions ?Recorded tramadol 50 mg tablet 50 mg PO Q6H PRN pain 5 days #20 04/27/24 tabs docusate sodium 100 mg capsule 100 mg PO BID #10 caps 06/22/24 (Colace) sulfamethoxazole 800 1 tab PO BID 7 days #14 tabs 06/22/24 mg-trimethoprim 160 mg tablet (Bactrim DS) tramadol 50 mg tablet 50 mg PO Q6H PRN pain 2 days #8 06/22/24 tabs bwtveqfkbc-ccsowplincjzc-oebugine 1 cap PO Q6H PRN headache #12 caps 07/06/24 50 mg-300 mg-40 mg capsule (Fioricet) cefdinir 300 mg capsule 300 mg PO BID 7 days #14 caps 07/06/24 ondansetron 4 mg disintegrating 4 mg PO Q6H PRN nausea and 07/06/24 tablet vomiting #12 tabs Allergies Allergy/AdvReac Type Severity Reaction Status Date / Time clonazepam Allergy Severe Difficulty Verified 06/22/24 18:48 Breathing levofloxacin (From Levaquin) Allergy Severe Difficulty Verified 06/22/24 18:48 Breathing moxifloxacin Allergy Intermediate Hives Verified 06/22/24 18:48 celecoxib (From Celebrex) Allergy Mild Hives Verified 06/22/24 18:48 erythromycin base Allergy Mild Gastrointestinal Verified 06/22/24 18:48 Upset Opioid HPI Opioid Management Most Recent Opioid Data: Last Pain Scale 6 12/13/24 18:44 12/13/24 Last Pain Intensity 5 04/25/24 09:14 04/25/24 Last ORT Total Score 0 04/23/24 20:47 04/23/24 Last ORT Risk Category Low Risk 04/23/24 20:47 04/23/24 Review of Systems ROS Status of ROS 10 or more systems reviewed and unremark able except as noted in history and below [facility] Medical History (Updated 08/11/24 @ 16:55 by Lilian Resendez MD) Hydronephrosis with ureteral calculus ?N13.2 - Hydronephrosis with renal and ureteral calculous obstruction (ICD- 10) Anemia in chronic illness ?D63.8 - Anemia in other chronic diseases classified elsewhere (ICD-10) Sacral decubitus ulcer ?L89.159 - Pressure ulcer of sacral region, unspecified stage (ICD-10) 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 ?G90.3 - Multi-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 (ICD-10) Type 2 diabetes mellitus with diabetic polyneuropathy ?E11.42 - Type 2 diabetes mellitus with diabetic polyneuropathy (ICD-10) Parkinson disease ?G20.A1 - Parkinson's disease without dyskinesia, without mention of fluc tuations (ICD-10) Generalized weakness ?R53.1 - Weakness (ICD-10) Suprapubic catheter ?Z93.59 - Other cystostomy status (ICD-10) COPD (chronic obstructive pulmonary disease) ?J44.9 - Chronic obstructive pulmonary disease, unspecified (ICD-10) Breath shortness ?R06.02 - Shortness of breath (ICD-10) Urinary tract infection ?N39.0 - Urinary tract infection, site not specified (ICD-10) Complication, blocked Ferro catheter ?T83.091A - Other mechanical complication of indwelling urethral catheter, initial encounter (ICD-10) UTI (urinary tract infection) ?N39.0 - Urinary tract infection, site not specified (ICD-10) Bladder infection, chronic ?N30.20 - Other chronic cystitis without hematuria (ICD-10) Weakness of both lower extremities ?R29.898 - Other symptoms and signs involving the musculoskeletal system (ICD-10) Neurogenic bladder ?N31.9 - Neuromuscular dysfunction of bladder, unspecified (ICD-10) Neuropathy ?G62.9 - Polyneuropathy, unspecified (ICD-10) Tonsillectomy planned FH: bilateral hip replacements ?Z82.69 - Family history of other diseases of the musculoskeletal system and connective tissue (ICD-10) Enlarged prostate ?N40.0 - Benign prostatic hyperplasia without lower urinary tract symptoms (ICD-10) 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, unspecified (ICD-10) 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 - Malignant (primary) neoplasm, unspecified (ICD-10) Esophageal cancer ?C15.9 - Malignant neoplasm of esophagus, unspecified (ICD-10) Barretts esophagus ?K22.70 - Rust's esophagus without dysplasia (ICD-10) GERD without esophagitis ?K21.9 - Gastro-esophageal reflux disease without esophagitis (ICD-10) Asthma ?J45.909 - Unspecified asthma, uncomplicated (ICD-10) Pneumonia ?J18.9 - Pneumonia, unspecified organism (ICD-10) COVID-19 ?U07.1 - COVID-19 (ICD-10) Kidney stones ?N20.0 - Calculus of kidney (ICD-10) Bladder stones ?N21.0 - Calculus in bladder (ICD-10) Type 2 diabetes mellitus ?E11.9 - Type 2 diabetes mellitus without complications (ICD-10) Hypotension ?I95.9 - Hypotension, unspecified (ICD-10) Surgical History (Updated 08/06/23 @ 08:15 by Jorge Contreras) H/O cystoscopy ?Z98.890 - Other specified postprocedural states (ICD-10) S/P insertion of spinal cord stimulator ?Z96.89 - Presence of other specified functional implants (ICD-10) Status post right rotator cuff repair ?Z98.890 - Other specified postprocedural states (ICD-10) H/O hand surgery ?Z98.890 - Other specified postprocedural states (ICD-10) History of left knee replacement ?Z96.652 - Presence of left artificial knee joint (ICD-10) History of left shoulder replacement ?Z96.612 - Presence of left artificial shoulder joint (ICD-10) Previous back surgery ?Z98.890 - Other specified postprocedural states (ICD-10) H/O gastric bypass ?Z98.84 - Bariatric surgery status (ICD-10) Family History (Updated 08/20/23 @ 20:33 by Barbara Mauro RN) Mother Family history of hypertension Family history of diabetes mellitus Family history of COPD (chronic obstructive pulmonary disease) Brother Family history of cancer Other Family history of CHF (congestive heart failure) Social History Within the past year, how often did you have a drink containing alcohol: never Within the past year, how often did you have six or more drinks on one occasion: never Score interpretation: A score less than 4 is consistent with normal alcohol consumption. Smoking status: Former smoker Highest level of school completed/degree received: some college, no degree Are you now , , , , never or living with a partner: In a typical week, how many times do you talk on the telephone with family, friends, or neighbors: 3 or more times per week How often do you get together with friends or relatives: 3 or more times per week Little interest or pleasure in doing things: not at all Feeling down, depressed, or hopeless: not at all Feel stressed/tense/nervous/anxious/difficulty sleeping: to some extent Do you think of yourself as: straight/heterosexual Gender Identity: male Exam Narrative Exam Narrative: Nurses notes and vital signs reviewed and patient is not hypoxic. General: Well-appearing and in no apparent distress. Skin: Warm, dry, no pallor noted. No rash. Head: Normocephalic, atraumatic. Neck: Supple, non-tender. Eye: Pupils are equal, round and EOMI. No scleral icterus. Ears, Nose, Mouth, and Throat: TM are clear, no nasal mucosal hypertrophy. Oral mucosa is moist, no posterior oropharynx erythema, uvula is mid-line Cardiovascular: Regular Rate and Rhythm without murmur, gallop or rub. Respiratory: No accessory muscle use or respiratory distress. Lungs are clear to auscultation, no wheezing, rales or rhonchi Chest Wall: no tenderness Back: No midline thoracic or lumbar vertebral tenderness. No CVA tenderness GI: Abdomen is soft, non-distended. Normal bowel sounds. No masses appreciated. No tenderness to palpation. No rebound, guarding, or rigidity noted. Constitutional Vital Signs, click to edit/add: Last Vital Signs Temp 97.9 F 12/13/24 17:46 Pulse 69 12/13/24 17:46 Resp 20 12/13/24 17:46 BP 155/100 H 12/13/24 17:46 Pulse Ox 95 12/13/24 17:46 O2 Del Method Room Air 12/13/24 17:46 Course Vital Signs Vital signs: Vital Signs Temperature 97.9 F 12/13/24 17:46 Pulse Rate 69 12/13/24 17:46 Respiratory Rate 20 12/13/24 17:46 Blood Pressure 155/100 H 12/13/24 17:46 Pulse Oximetry 95 12/13/24 17:46 Oxygen Delivery Method Room Air 12/13/24 17:46 Temperature 97.9 F 12/13/24 17:46 Pulse Rate 69 12/13/24 17:46 Respiratory Rate 12/13/24 17:46 Blood Pressure 155/100 H 12/13/24 17:46 Pulse Oximetry 95 12/13/24 17:46 Oxygen Delivery Method Room Air 12/13/24 17:46 Medical Decision Making MDM Narrative Medical decision making narrative: The patient EKG in the ER showing sinus rhythm with a heart rate of [address] elevation noted Discharge Plan Discharge Patient Disposition: Still a Patient
[2024-12-13 18:50] LABS: Bilirubin Urine SMALL (NEGATIVE); Blood Urine LARGE (NEGATIVE); Clarity Urine CLOUDY (CLEAR); Color Urine RED (YELLOW); Glucose Urine UA NEGATIVE (NEGATIVE); Ketones Urine 15 mg/dL (NEGATIVE); Leukocyte Esterase Urine MODERATE (NEGATIVE); Nitrite Urine POSITIVE (NEGATIVE); Protein Urine 30 mg/dL (NEG/TRACE); Specific Gravity Urine 1.025 (1.005-1.025); pH Urine 6.5 (5.0-9.0)
[2024-12-13 18:55] LABS: Urine Microscopic Indicated YES
[2024-12-13 18:58] LABS: Influenza Virus A Antigen Negative; Influenza Virus B Antigen Negative; Internal Control Within Normal Limits; SARS-CoV-2 Ag NEGATIVE (NEGATIVE)
[2024-12-13 18:58] LABS: Amorphous Sediment Urine FEW; Bacteria Urine LARGE #/HPF (NONE SEEN); Cast Seen? NONE SEEN #/LPF (NONE SEEN); Crystals Seen? Seen #/HPF (None Seen); Mucus Urine NONE SEEN (NONE SEEN); Squamous Epithelial Cell Urine RARE #/LPF (NONE/RARE); Urine Culture Indicated YES-FRMC
[2024-12-13 19:02] LABS: INR 1.01; Prothrombin Time 10.7 sec (9.0-11.6)
[2024-12-13 19:08] LABS: Lactate/Lactic Acid 1.2 mmol/L (0.4-2.0)
[2024-12-13 19:15] LABS: Alanine Aminotransferase <6 U/L (16-63); Albumin Globulin Ratio 1.1; Albumin Level 3.7 g/dL (3.4-5.0); Alkaline Phosphatase 91 U/L (46-116); Aspartate Amino Transferase 18 U/L (15-37); Bilirubin Total 0.4 mg/dL (0.2-1.0); Carbon Dioxide 27.7 mmol/L (21.0-32.0); Chloride 108 mmol/L (98-107); Estimated GFR (African America >60 (>=60 mL/min/1.73m^2); Estimated GFR (Non-African Ame >60 (>=60 mL/min/1.73m^2); Globulin 3.4 g/dL; Glucose 91 mg/dL (74-106); Potassium 3.7 mmol/L (3.5-5.1); Sodium 143 mmol/L (136-145); Total Protein 7.1 g/dL (6.4-8.2); Troponin I High Sensitivity 4.4 pg/mL (4.0-76.1)
[2024-12-13] MEDS: PROMETHAZINE HCL 12.5 MG in 0.9 % SODIUM CHLORIDE 50 ML 202 MG IV (20:00)
[2024-12-13] MEDS: 0.9 % SODIUM CHLORIDE 1,000 ML 1000 ML IV (20:00)
[2024-12-13] MEDS: HYOSCYAMINE SULFATE 0.125 MG TAB.SUBL SL (20:01)
[2024-12-13] MEDS: KETOROLAC TROMETHAMINE 30 MG/ML VIAL IVP (20:01)
[2024-12-13] MEDS: HYDRALAZINE HCL 20 MG/ML VIAL 10 MG IVP (20:07)
[2024-12-13] MEDS: IPRATROPIUM/ALBUTEROL SULFATE 3 ML AMPUL.NEB IH (20:27)
[2024-12-13] MEDS: CIPROFLOXACIN HCL 500 MG TABLET PO (20:35)
== END 2024-12-13 21:58 | disposition home or self-care (01) ==
PROVIDERS: Emergency Medicine; Emergency Provider Emergency Medicine; PCP Family Medicine
DX: G43.909 Migraine, unspecified, not intractable, without status migrainosus (principal); N39.0 Urinary tract infection, site not specified; R78.9 Finding of unspecified substance, not normally found in blood; R10.13 Epigastric pain; B34.9 Viral infection, unspecified
CPT/HCPCS: 36415; 71045; 80053; 81001; 83605; 84484; 85025; 85610; 87086; 87804; 87811; 93005; 94640; 96365; 96375; 99285; J0360; J1885; J2550

== ENCOUNTER 2025-02-28 10:44 | Outpatient (OUT) | payer MEDICARE, OTHER, SELFPAY ==
--- NOTE | 2025-02-28 10:50 | US_ITS ---
The [address] [address] Patient Name: ALISIA CORREA MRN: [id number] date: 1960 Sex: M Assigned Patient Location: US Current Patient Location: US Accession/Order Number: [id number] Exam Date: 02/28/2025 11:36 Report Date: 02/28/2025 11:39 At the request of: HEIDY HENDERSON MD Procedure: US abdominal aortic aneurysm ULTRASOUND ABDOMINAL AORTA CLINICAL DATA: Screening for aneurysm. History of tobacco use. COMPARISON: CT 06/22/2024 Mild atherosclerotic plaque is visualized. No aortic aneurysm is seen. Proximally, the aorta measures 2.1 x 2.4 cm. At the midsegment, the aorta measures 1.8 x 1.9 cm. Distally, the aorta measures 2.0 x 1.9 cm. The bifurcation is identified and the iliac arteries are normal caliber. This is no perinephric fluid. US/US abdominal aortic aneurysm IMPRESSION: NO AORTIC ANEURYSM. Impression dictated by: Geneva Garcia M.D. 02/28/2025 11:39 AM Dictation Location: [place] [address] Electronically authenticated by: [id number] Y Date: 02/28/2025 11:39
== END 2025-02-28 10:45 | disposition home or self-care (01) ==
LOC: US 10:45
PROVIDERS: PCP Family Medicine; Visit Provider Student in an Organized Health Care Education/Training Program
DX: I71.02 Dissection of abdominal aorta (principal); Z13.6 Encounter for screening for cardiovascular disorders; Z87.891 Personal history of nicotine dependence
CPT/HCPCS: 76775

== ENCOUNTER 2025-03-07 14:00 | Outpatient (RCR) | payer MEDICARE, OTHER, SELFPAY | END 2025-03-28 12:25 | disposition home or self-care (01) | LOC: PT 14:00 | PROVIDERS: PCP Family Medicine; Visit Provider Family Medicine | DX: G20.C Parkinsonism, unspecified (principal) | CPT/HCPCS: 97110; 97112; 97161; 97530 ==

== ENCOUNTER 2025-04-11 13:53 | Outpatient (OUT) | payer MEDICARE, OTHER, SELFPAY ==
--- NOTE | 2025-04-11 14:00 | CA_ITS ---
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 Interpretive Statements Summary of the findings: Right leg: ANUJA= 1.13; TBI= 0.53. Doppler waveforms demonstrate biphasic flow at the posterior tibial and dorsalis pedis arteries. Left leg: ANUJA= 1.20; TBI= 0.31. Doppler waveforms demonstrate biphasic flow at the posterior tibial and dorsalis pedis arteries. Segmental pressures: Segmental pressures suggest possible right femoropopliteal disease. Pulse volume recordings: PVRs at the high thigh, below knee, and ankle levels show grossly normal waveforms. Conclusion: Right and left ankle-brachial indices are suggestive of normal overall arterial flow at rest. Toe-brachial indices are suggestive of bilateral PAD. Segmental pressures suggest possible right femoropopliteal disease. Pulse volume recordings indicate good overall resting arterial flow. The study shows evidence of PAD with normal overall arterial flow at rest. There is likely left sided femoropopliteal disease and significantly reduced toe perfusion. Electronically Signed On 04-11-2025 22:13:29 EDT by JOSY JC M.D.
== END 2025-04-11 13:54 | disposition home or self-care (01) ==
LOC: CARD 13:54
PROVIDERS: PCP Family Medicine; Visit Provider Student in an Organized Health Care Education/Training Program
DX: S91.102D Unspecified open wound of left great toe without damage to nail, subsequent encounter (principal); Z13.6 Encounter for screening for cardiovascular disorders; I70.262 Atherosclerosis of native arteries of extremities with gangrene, left leg
CPT/HCPCS: 93923

== ENCOUNTER 2025-05-29 12:01 | Outpatient (OUT) | payer MEDICARE, OTHER, SELFPAY ==
--- OUTSIDE RECORDS SUMMARY | 2025-05-29 12:03 | XMS_ITS | Encounter Summary ---
Author Organization [facility] Address [address] [place] [address] Phone Care Team Providers Care Hydroelectric Machinery Mechanic Name Role Phone Jaden Crabtree DO Primary Care Provider [phone] Jaden Crabtree DO Unavailable Encounter Details Date Type Department Care Team (Late st Contact Info) Description 07/25/2021 Orders Only [facility] [address] [place] [address] Conversion, Onbase Social History Tobacco Use Types Packs/Day Years Used Date Smoking Tobacco: Never Assessed Sex and Gender Information Value Date Recorded Sex Assigned at Not on file Legal Sex Male 8:17 PM EST Gender Identity Not on file Sexual Orientation Not on file documented as of this encounter Plan of Treatment Scheduled Orders Name Type Priority Associated Diagnoses Orde r Schedule OUTSIDE LAB SCAN Lab Ordered: 07/25/2021 documented as of this encounter Visit Diagnoses Not on filedocumented in this encounter Care Teams Hydroelectric Machinery Mechanic Relationship Specialty Start Date End Date Jaden Crabtree DO PCP - General 08/16/21 Jaden Crabtree DO [address] [place] [address] PCP - MMO Medicare Advantage PCP 02/16/23 09/17/23 documented as of this encounter
--- OUTSIDE RECORDS SUMMARY | 2025-05-29 12:03 | XMS_ITS | Encounter Summary ---
Author Organization [facility] Address [address] [place] [address] Phone Care Team Providers Care Account Management Assistant Name Role Phone Jaden Crabtree DO Primary Care Provider [phone] Jaden Crabtree DO Unavailable Encounter Details Date Type Department Care Team (Late st Contact Info) Description 03/03/2022 Orders Only [facility] [address] [place] [address] Conversion, Onbase Social History Tobacco Use Types [...] r Schedule OUTSIDE LAB SCAN Lab Ordered: 03/03/2022 documented as of this encounter Visit Diagnoses Not on filedocumented in this encounter Care Teams Account Management Assistant Relationship Specialty Start Date End Date Jaden Crabtree DO PCP - General 08/16/21 Jaden Crabtree DO [address] [place] [address] PCP - MMO Medicare Advantage PCP 02/16/23 09/17/23 documented as of this encounter
--- OUTSIDE RECORDS SUMMARY | 2025-05-29 12:03 | XMS_ITS | Encounter Summary ---
Author Organization [facility] Address [address] [place] [address] Phone Care Team Providers Care Title Searcher Name Role Phone Jaden Crabtree DO Primary Care Provider [phone] Jaden Crabtree DO Unavailable Encounter Details Date Type Department Care Team (Late st Contact Info) Description 07/26/2021 Orders Only [facility] [address] [place] [address] Conversion, Onbase Social History Tobacco Use Types [...] r Schedule OUTSIDE LAB SCAN Lab Ordered: 07/26/2021 documented as of this encounter Visit Diagnoses Not on filedocumented in this encounter Care Teams Title Searcher Relationship Specialty Start Date End Date Jaden Crabtree DO PCP - General 08/16/21 Jaden Crabtree DO [address] [place] [address] PCP - MMO Medicare Advantage PCP 02/16/23 09/17/23 documented as of this encounter
--- OUTSIDE RECORDS SUMMARY | 2025-05-29 12:03 | XMS_ITS | Clinical Summary ---
Author Organization [facility] Address [address] [place] [address] Care Team Providers Care Retail Manager In Training Name Role Phone Jaden Crabrtee Primary Care Provider [phone] Allergies Active Allergy Reactions Criticality Noted Date Comments Celecoxib GI intolerance,Hives,Rash, Unknown High 06/04/2017 Other reaction(s): GI Upset, Unknown Clonazepam Itching,Shortness of breath,Unknown High 06/04/2017 Erythromycin Itching,Nausea And Vomiting,Nausea Only,Unknown Low 01/17/2021 Other reaction(s): Unknown Erythromycin Base Hives,Shortness of breath High 03/06/2004 Levofloxacin Hives,Shortness of breath,Unknown High 01/29/2010 Other reaction(s): Unknown Moxifloxacin Hives,Itching,Rash,S hor tness of breath,Other High 07/20/2006 Pimavanserin Hives 08/23/2020 Medications carbidopa-levod opa (Sinemet CR) 25-100 mg ER tablet TAKE 1 TABLET BY MOUTH AT 2AM, 2 TABLETS AT 6AM AND 10AM, 1 TABLET AT 2PM, 6PM, AND 10PM. TAKE WITH SINEMET IR Active carbidopa-levod opa (Sinemet) 25-100 mg tablet TAKE 2 TABLETS BY MOUTH AT 6AM AND 10AM, 1 TAB AT 2PM AND 6PM. AVOID PROTEIN 1 HOUR BEFORE OR AFTER EACH DOSE. TAKE ALONG WITH SINEMET CR. Active montelukast (Singulair) 10 mg tablet Take 10 mg by mouth in the morning. Active fludrocortisone (Florinef) 0.1 mg tablet TAKE TWO TABLETS BY MOUTH DAILY DIRECTED Active acarbose (Precose) 25 mg tablet Take 25 mg by mouth in the morning, afternoon, and at bedtime. Active diclofenac (Voltaren) 75 mg EC tablet Take 75 mg by mouth in the morning and at bedtime. Active pregabalin (Lyrica) 300 mg capsule take one capsule by mouth twice a day for 30 days Active tolterodine LA (Detrol LA) 4 mg 24 hr capsule Take 4 mg by mouth in the morning. Active midodrine (Proamatine) 5 mg tablet Check blood pressure at 8 am, 12 pm and 6 pm. If top number is 110 or lower take 3 tablets (15 mg). If top number 111-149 take 2 tablets (10 mg) if top number is 150 or higher DO NOT TAKE. 12/06/2022 Active venlafaxine XR (Effexor-XR) 150 mg 24 hr capsule Take 1 capsule by mouth in the morning. 03/06/2025 Active topiramate (Topamax) 100 mg tablet Take 100 mg by mouth in the morning and at bedtime. Active atorvastatin (Lipitor) 10 mg tablet Take 10 mg by mouth in the morning. Active DULoxetine (Cymbalta) [address] capsule Take 60 mg by mouth in the morning. Active ezetimibe (Zetia) 10 mg tablet Take 10 mg by mouth in the morning. 02/19/2021 Active pyRIDostigmine (Mestinon) 60 mg tablet Take 30 mg by mouth three times daily. 03/31/2025 Active SUMAtriptan (Imitrex) 50 mg tablet TAKE 1 TABLET (50 MG TOTAL) BY MOUTH ONCE NEEDED FOR MIGRAINE FOR UP TO 180 DOSES. MAY REPEAT IN 2 HOURS IF UNRESOLVED. DO NOT EXCEED 20 Active Bactrim 400-80 mg tablet Take by mouth. 12/27/2024 06/25/20 25 Active traMADol (Ultram) 50 mg tablet take 1 tablet (50 mg total) by mouth every 6 (six) hours as needed for pain. Active potassium citrate CR (Urocit-K-15) 15 mEq ER tablet Take 15 mEq by mouth twice a day. 01/06/2024 Active albuterol sulfate 90 mcg/actuation aerosol powdr breath activated Inhale 2 puffs every 4 (four) hours. Active acetaminophen-c affeine 500-65 mg tablet Take 2 tablets by mouth every 6 (six) hours if needed. 02/19/2021 Active albuterol 1.25 mg/3 mL nebulizer solution Inhale 1 ampule every 6 (six) hours if needed. 11/08/2019 Active ascorbic acid (Vitamin C) 100 mg tablet Take 100 mg by mouth in the morning. Active butalbital-acet aminophen-caff (Fioricet) 50-300-40 mg capsule TAKE 1 CAPSULE BY MOUTH EVERY 6 HOURS NEEDED FOR PAIN FOR 7 DAYS 04/20/2025 Active Active Problems Problem Noted Date Diagnosed Date Aftercare following surgery of the musculoskelet al system 04/25/2025 Anemia 04/25/2025 Anxiety 04/25/2025 BPH with urinary obstruction 04/25/2025 Chest pain 04/25/2025 Degeneration of intervertebral disc of cervical region 04/25/2025 Degeneration of intervertebral disc of lumbosacr al region 04/25/2025 Depression 04/25/2025 Bowel incontinence 04/25/2025 Incontinence without sensory awareness Iron deficiency anemia 04/25/2025 Kidney stones 04/25/2025 Other forms of scoliosis, site unspecified 04/25 Recurrent UTI 04/25/2025 Sciatica, left side 04/25/2025 History of arthrodesis 04/25/2025 Urinary retention 04/25/2025 UTI symptoms 04/25/2025 Sinus pause 04/25/2025 Second degree heart block by electrocardiogram ( ECG) 04/14/2025 Overview (04/14/2025): On event monitor Pause of 3 .58 seconds 10:30am Open wound of left great toe 03/16/2025 Overview (04/25/2025): PVR with toe pressures Critical limb ischemia of lorene th lower extremities with gangrene 01/28/2024 Overview (04/25/2025): Bilateral toe wounds nonhealing, no PVR or testing Encounter for abdominal aortic aneurysm (AAA) sc reening 01/28/2024 Acute kidney injury 08/20/2023 Irritant contact dermatitis due to fecal inconti nence 11/24/2022 Pressure injury of coccygeal region, stage 2 03/2023 Pressure injury of left foot, unstageable 02/06/ 2023 Overview (04/25/2025): Lateral foot Wound eschar of foot 11/24/2022 Overview (04/25/2025): Right and left toes At risk for delirium 11/21/2022 Severe protein-calorie malnutrition 11/21/2022 COVID-19 virus infection 11/20/2022 Fall 11/20/2022 Generalized weakness 11/20/2022 Testicular hypofunction 07/09/2022 Lumbar stenosis with neurogenic claudication Coronary atherosclerosis 12/02/2021 History of fusion of cervical spine 10/10/2021 Shy-Drager syndrome 02/13/2021 Walking difficulty due to ankle and foot 021 Falls frequently 08/29/2020 Orthostatic hypotension 08/29/2020 Multifactorial gait disorder 08/29/2020 Near syncope 08/29/2020 Right foot drop 08/29/2020 Acute cystitis without hematuria 04/27/2020 Tobacco use 04/24/2020 Overview (04/25/2025): Last Assessment & Plan: Assessment: 60 pack years Currently 1/2 pack day since 01/2020 Cessation with strategies encouraged. Open wound of left heel 11/08/2019 Osteoarthritis of left hip 11/08/2019 Dysphagia 04/13/2019 Psychosis due to Parkinson's disease 04/13/2019 MGUS (monoclonal gammopathy of unknown significa nce) 09/15/2018 Spinal cord stimulator status 09/07/2018 Overview (04/25/2025): Last Assessment & Plan: Assessment: for LBP generator in right hip Aware to bring remote on DOS Complete tear of right rotator cuff 08/02/2018 Iron deficiency anemia secon jovany to inadequate dietary iron intake 06/16/2018 Nicotine use disorder 03/17/2018 Obesity, Class I, BMI 30-34.9 03/17/2018 CRPS (complex regional pain syndrome type I) Shoulder arthritis 12/29/2017 Essential hypertension 12/07/2017 Overview (03/20/2025): Last Assessment & Plan: Assessment: Medication for Control. Date: BP: 04/24/2020 115/80 Stable. Asthma 12/07/2017 Hyperlipidemia 12/07/2017 Overview (04/25/2025): Last Assessment & Plan: Assessment: stable on medication Essential tremor 10/27/2017 Glenohumeral arthritis, left 10/26/2017 Arthritis of knee 04/27/2017 COPD with chronic bronchitis 04/15/2017 Overview (03/20/2025): Last Assessment & Plan: Assessment: Managed with inhalers No supplemental oxygen use RA 04/24/20 1148 SpO2: 97% Stable. Type 2 diabetes mellitus 04/15/2017 Chronic pain syndrome 04/15/2017 Overview (04/25/2025): Last Assessment & Plan: Assessment: lower back pain s/p SCS 02/2018 Monitored by Pain Management ( 04/03/2020) Postlaminectomy syndrome of lumbar region 2015 Microstomia 08/09/2010 Frequency of urination 03/26/2010 Slow urinary stream 03/26/2010 Impotence of organic origin 10/08/2007 Malignant neoplasm of skin of lip 05/11/2007 Overview (04/25/2025): Last Assessment & Plan: Assessment: s/p removal Psychosexual dysfunction, unspecified 07/31/2006 Urinary urgency 07/31/2006 Brachial neuritis or radiculitis 04/17/2004 Displacement of cervical int ervertebral disc without myelopathy 04/17/2004 Displacement of thoracic int ervertebral disc without myelopathy 03/06/2004 Encounters Date Type Department Care Team Description 04/25/2025 2:30 PM EDT Office Visit [facility] [address] [place] [id number] Antonio Lim MD Sinus pause (Primary Dx) 04/25/2025 Orders Only [facility] [address] [place] [address] Alana Mark MA Sinus pause (Primary Dx) 04/07/2025 Telephone [facility] [address] [place] [address] Jessica Valencia MA 04/07/2025 Telephone [facility] [address] [place] [address] Nissa King MA 04/05/2025 10:00 AM EDT Telemedicine [facility] [address] [place] [address] Cherelle Botello CNP 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); Syncope and collapse 04/05/2025 Telephone [facility] [address] [place] [address] Kenyatta Roblero MA 03/15/2025 Orders Only [facility] [address] [place] [address] Marcelle Anderson MA from Last 3 Months Family History Medical History Relation Name Comments Cancer Brother Sonny García jr Diabetes type II Father Sonny García Hypertension Father Sonny García Heart attack Maternal Grandfather Asthma Mother BettWeyer Depression Mother BettWeyer Hypertension Mother BettWeyer Hypotension Mother BettWeyer Kidney disease Mother BettWeyer Heart attack Mother's Brother Relation Name Status Comments Brother Sonny García jr Alive Father Sonny García Alive Maternal Grandfather Mother BettWeyer Alive Mother's Brother Social History Tobacco Use Types Packs/Day Years Used Date Smoking Tobacco: Former Cigarettes 1 44.6 0 01/13/1978 - 08/19/2022 Smokeless Tobacco: Never Alcohol Use Standard Drinks/Week Comments Never 0 (1 standard drink = 0.6 oz pur e alcohol) Humiliation, Afraid, Rape, and Kick questionnair e Answer Date Recorded Within the last year, have y ou been afraid of your partner or ex-partner? No 04/05/2025 Emotionally Abused Not on file 04/05/2025 Physically Abused Not on file 04/05/2025 Sexually Abused Not on file 04/05/2025 PHQ-2 Answer Date Recorded Patient Health Questionnaire-2 Score 2 04/05/2025 Sex and Gender Information Value Date Recorded Sex Assigned at Not on file Legal Sex Male 10:07 PM EDT Gender Identity Not on file Sexual Orientation Not on file Last Filed Vital Signs Vital Sign Reading Time Taken Comments Blood Pressure 99/69 04/25/2025 2:39 PM EDT Pulse 71 04/25/2025 2:39 PM EDT Temperature - - Respiratory Rate - - Oxygen Saturation 96% 04/25/2025 2:39 PM EDT Inhaled Oxygen Concentration - - Weight 109 kg (240 lb) 04/05/2025 10:21 AM EDT Height 177.8 cm (5' 10 ) 04/25/2025 2:39 PM EDT Body Mass Index 34.44 04/05/2025 10:21 AM EDT Plan of Treatment Upcoming Encounters Date Type Department Care Team (Late st Contact Info) Description 06/05/2025 1:00 PM EDT Hospital Encounter [facility] [address] [place] [id number] Antonio Lim MD [address] [place] [address] Sinus pause 06/05/2025 1:00 PM EDT - 06/05/2025 2:00 PM EDT Surgery [facility] [address] [place] [address] Antonio Lim MD [address] [place] [id number] Implant PPM [[id number]] Health Maintenance Due Date Last Done Comments CT Colonography 1958 Diabetes: Hemoglobin A1C 1958 FIT-DNA 1958 FIT 1958 FOBT 1960 Medicare Annual Wellness (AWV) 1960 Sigmoidoscopy 1958 Diabetes: Retinopathy Screening 1968 Diabetes: Urine Protein Screening 1977 Zoster Vaccines (2 of 2) 03/16/2019 01/19/2019 COVID-19 Vaccine ( season) 2024 10/15/2021, 01/09/2021, 12/13/2020 Influenza Vaccine (#1) 2025 , 09/02/2022, 10/15/2021, Additional history exists Depression Screening 04/05/2026 04/05/2025 Fall Risk Screening 04/05/2026 04/05/2025 Colonoscopy 08/11/2026 08/11/2016 Colorectal Cancer Screening 08/11/2026 Pneumococcal Vaccine: 50+ Years (3 of 3 - PCV20 or PCV21) 10/21/2027 10/21/2022, 11/15/2018, 08/13/1995 Adult Tetanus 11/15/2028 11/15/2018, 10/22/2015 HIB Vaccines Aged Out No longer eligi ble based on patient's age to complete this topic HPV Vaccines Aged Out No longer eligi ble based on patient's age to complete this topic IPV Vaccines Aged Out No longer eligi ble based on patient's age to complete this topic Meningococcal B Vaccine Aged Out No l onger eligible based on patient's age to complete this topic Meningococcal Vaccine Aged Out No lisy cassidy eligible based on patient's age to complete this topic Rotavirus Vaccines Aged Out No longer eligible based on patient's age to complete this topic Insurance [employer] [place] Care Teams Retail Manager In Training Relationship Specialty Start Date End Date Jaden Crabtree DO [address] [place] [id number] PCP - General Family Medicine 04/25/25
--- OUTSIDE RECORDS SUMMARY | 2025-05-29 12:03 | XMS_ITS | Encounter Summary ---
Author Organization [facility] Address [address] [place] [address] Phone Care Team Providers Care Head Banquet Waiter/Waitress Name Role Phone Jaden Crabtree DO Primary Care Provider [phone] Jaden Crabtree DO Unavailable Encounter Details Date Type Department Care Team (Late st Contact Info) Description 06/21/2023 Patient Risk Score [facility] [address] [place] [address] Social History Tobacco Use Types Packs/Day Years Used Date Smoking Tobacco: Never Assessed Sex and Gender Information Value Date Recorded Sex Assigned at Not on file Legal Sex Male 8:17 PM EST Gender Identity Not on file Sexual Orientation Not on file documented as of this encounter Plan of Treatment Not on file documented as of this encounter Visit Diagnoses Not on filedocumented in this encounter Care Teams Head Banquet Waiter/Waitress Relationship Specialty Start Date End Date Jaden Crabtree DO PCP - General 08/16/21 Jaden Crabtere DO [address] [place] [address] PCP - MMO Medicare Advantage PCP 02/16/23 09/17/23 documented as of this encounter
--- OUTSIDE RECORDS SUMMARY | 2025-05-29 12:03 | XMS_ITS | Encounter Summary ---
Author Organization [facility] Address [address] [place] [address] Phone Care Team Providers Care Dispute Resolution Specialist Name Role Phone Jaden Crabtree DO Primary Care Provider [phone] Jaden Crabtree DO Unavailable Encounter Details Date Type Department Care Team (Late st Contact Info) Description 07/21/2023 Patient Risk Score [facility] [address] [place] [address] Social History Tobacco Use Types [...] on filedocumented in this encounter Care Teams Dispute Resolution Specialist Relationship Specialty Start Date End Date Jaden Crabtree DO PCP - General 08/16/21 Jaden Crabtree DO [address] [place] [address] PCP - MMO Medicare Advantage PCP 02/16/23 09/17/23 documented as of this encounter
--- OUTSIDE RECORDS SUMMARY | 2025-05-29 12:04 | XMS_ITS | Encounter Summary ---
Author Organization [facility] Address [address] [place] [address] Care Team Providers Care Fluid Jet Cutter Operator Name Role Phone Jaden Crabtree Primary Care Provider [phone] Source Comments In the event this information is protected by the Federal Confidentiality of Alcohol and Drug AbusePatient Records regulations: The Federal rules restrict any use of the information to criminally investigate or prosecute any alcohol or drug abuse patient.[facility] Encounter Details Date Type Department Care Team (Late st Contact Info) Description 2023 [place] [address] Provider, [facility] Medicare Coverage of Physical Exams Social History Tobacco Use Types Packs/Day Years Used Date Smoking Tobacco: Every Day Cigarettes 1.5 42.5 Started: 12/07/1982 Smokeless Tobacco: Never Comments:currently 8 cigaret ida a day Alcohol Use Standard Drinks/Week Comments No 0 (1 standard drink = 0.6 oz pur e alcohol) Overall Financial Resource Strain (CARDIA) Answe r Date Recorded How hard is it for you to pa y for the very basics like food, housing, medical care, and heating? Not very hard 11/25/2022 PHQ-2 Answer Date Recorded PHQ-2 score 6 10/25/2020 Hunger Vital Sign Answer Date Recorded Within the past 12 months, y ou worried that your food would run out before you got the money to buy more. Never true 11/25/19 23 Within the past 12 months, t he food you bought just didn't last and you didn't have money to get more. Never true 11/25/2022 PRAPARE - Transportation Answer Date Re corded In the past 12 months, has l ack of transportation kept you from medical appointments or from getting medications? No 04/2023 In the past 12 months, has l ack of transportation kept you from meetings, work, or from getting things needed for daily living? No 11/25/2022 Housing Stability Vital Sign Answer Ja e Recorded In the last 12 months, was t here a time when you were not able to pay the mortgage or rent on time? No 11/25/2022 In the last 12 months, how many places have you lived? 2 11/25/2022 In the last 12 months, was t here a time when you did not have a steady place to sleep or slept in a alf (including now)? No 11/25/2022 Area Deprivation Index Answer Date Ross rded National Score (1-100), lower number is lower ri sk Not on file 09/23/2020 State Score (1-10), lower number is lower risk N ot on file 09/23/2020 Data from: https://www.neighborhoodatlas.medicine.[facility].edu/. Last address used for calculation Not on file 09/23/2020 Sex and Gender Information Value Date Recorded Sex Assigned at Not on file Legal Sex Male 9:51 AM EST Gender Identity Not on file Sexual Orientation Not on file Occupation Industry Job Start Date Job End Date Retired Not on file Not on file Not on file documented as of this encounter Functional Status * Are you deaf or do you have serious difficulty hearing? Answer Date of Assessment Author No 05/04/2020 8:04 PM Nelly Frye RN * Are you blind or do you have serious difficulty seeing, even when wearing glasses? Answer Date of Assessment Author No 05/04/2020 8:04 PM Nelly Frye RN * Do you have serious difficulty walking or climbing stairs? Answer Date of Assessment Author No 05/04/2020 8:04 PM Nelly Frye RN * Do you have difficulty dressing or bathing? Answer Date of Assessment Author No 05/04/2020 8:04 PM Nelly Frye RN * Because of a physical, mental, or emotional condition, do you have difficulty doing errands alone such as visiting a doctor's office or shopping? Answer Date of Assessment Author No 05/04/2020 8:04 PM Nelly Frye RN documented as of this encounter Mental Status * Because of a physical, mental, or emotional condition, do you have serious difficulty concentrating, remembering, or making decisions? Answer Entry Date Author No 05/04/2020 8:04 PM Nelly Frye RN documented in this encounter Plan of Treatment Not on file documented as of this encounter Visit Diagnoses Not on filedocumented in this encounter Care Teams Fluid Jet Cutter Operator Relationship Specialty Start Date End Date Jaden Crabtree [address] [place] [phone] PCP - General 06/10/02 documented as of this encounter
--- OUTSIDE RECORDS SUMMARY | 2025-05-29 12:04 | XMS_ITS | Encounter Summary ---
[facility] [id number] [address] [place] [address] Care Team Providers Care National Accounts Recruiter Name Role Phone Jaden Crabtree DO Primary Care Provider Encounter Details Date Type Department Care Team (Late Contact Info) Description 04/12/2025 Orders Only [facility] [address] [place] [address] Mine Iraheta CMA Encounter for abdominal aortic aneurysm (AAA) screening; Open wound of left great toe, subsequent encounter; Critical limb ischemia of left lower extremity with gangrene ([facility]) Social History Tobacco Use Types Packs/Day Years Used Date Smoking Tobacco: Former Cigarettes Smokeless Tobacco: Never Alcohol Use Standard Drinks/Week Comments Not Currently 0 (1 standard drink = 0.6 oz pur e alcohol) PHQ-2 Answer Date Recorded Total Score 21 08/23/2024 Childcare Answer Date Recorded Childcare Unknown 11/08/2020 Employment Answer Date Recorded Employment Unknown 11/08/2020 Hunger Screening Answer Date Recorded Within the past 12 months we worried whether our food would run out before we got money to buy more. Never True 03/16/2025 Within the past 12 months th e food we bought just didn't last and we didn't have money to get more. Never True 03/16/2025 Purpose - Life Answer Date Recorded Purpose and direction in life Unknown Sex and Gender Information Value Date Recorded Sex Assigned at Not on file Legal Sex Male 10:25 AM EST Gender Identity Not on file Sexual Orientation Not on file documented as of this encounter Plan of Treatment Upcoming Encounters Date Type Department Care Team (Late st Contact Info) Description 07/26/2025 10:00 AM EDT [facility] of [address] [place] [phone] Lyn Lawton MD [address] [place] [address], [facility] [address] [place] [address] documented as of this encounter Goals Goal Patient Goal Type Associated Problems Recent Progress Patient-Stated? Author Discharge home General Yes Skylar Chisholm, RN Note: Evaluation of progress towards goal: Plan to return home with supportive , after short acute inpatient rehabilitation, for post acute care. To get my medications adjusted and get stronger General Yes Sally Garcia, RN Note: Evaluation of progress towards goal: Participating in care and rehab documented as of this encounter Visit Diagnoses Diagnosis Encounter for abdominal aortic aneurysm (AAA) screening Open wound of left great toe, subsequent encounter Critical limb ischemia of left lower extremity with gangrene ([facility]) documented in this encounter Additional Health Concerns Assessment Noted Time PHQ-9 Depression Total Score: 21 024 11:29 AM EST A Body Mass Index follow-up plan has been documented for the patient 10/07/2024 3:14 PM EST documented as of this encounter Care Teams National Accounts Recruiter Relationship Specialty Start Date End Date Jaden Crabtree DO [address] [place] [address] PCP - General Family Medicine 01/17/21 documented as of this encounter
--- OUTSIDE RECORDS SUMMARY | 2025-05-29 12:04 | XMS_ITS | Encounter Summary ---
[facility] tem Address [id number] [address] [place] [address] Care Team Providers Care Lumber Stacker Operator Name Role Phone Jaden Crabtree DO Primary Care Provider [phone] Encounter Details Date Type Department Care Team (Late st Contact Info) Description 04/14/2024 Orders Only [facility] [address] [place] [address] Tracey Marin MD [address], [address] [address] Social History Tobacco Use Types Packs/Day Years Used Date Smoking Tobacco: Every Day Cigarettes Smokeless Tobacco: Never Comments:8 cigs per day Alcohol Use Standard Drinks/Week Comments Not Currently 0 (1 standard drink = 0.6 oz pur e alcohol) PHQ-2 Answer Date Recorded Total Score 12 11/16/2023 Childcare Answer Date Recorded Childcare Unknown 11/08/2020 Employment Answer Date Recorded Employment Unknown 11/08/2020 Hunger Screening Answer Date Recorded Within the past 12 months we worried whether our food would run out before we got money to buy more. Never True 01/28/2024 Within the past 12 months th e food we bought just didn't last and we didn't have money to get more. Never True 01/28/2024 Purpose - Life Answer Date Recorded Purpose [...] Description 07/26/2025 10:00 AM EDT Office Visit [facility], A Department of [address] [place] [phone] Lyn Lawton MD [address] [place] [address], [facility] [address] [place] [address] documented as of this encounter Goals Goal [...] and rehab documented as of this encounter Procedures Procedure Name Priority Date/Time Associated Diagnosis Comments VASC ARTERIAL DOPPLER LOWER BILATERAL MULTI LEVEL/PVR Routine 03/10/2024 2:09 PM EDT ULTRASOUND, ABDOMINAL AORTA, REAL TIME WITH IMAGE DOCUMENTATION, SCREENING STUDY FOR ABDOM Routine 03/10/2024 2:04 PM EDT documented in this encounter Results * Vas art doppler lwr bilat mult lev/PVR (03/10/2024 2:09 PM EDT) Anatomical Region Laterality Modality Vascular Bilateral Ultrasound us Tracey Marin MD CV VASCULAR ORDERABLES Final Result * ULTRASOUND, ABDOMINAL AORTA, REAL TIME WITH IMAGE DOCUMENTATION, SCREENING STUDY FOR ABDOM (03/10/2024 2:04 PM EDT) us Tracey Marin MD [facility] Final Result MANUALLY TRANSCRIBED RESULTS documented in this encounter Visit Diagnoses Not on filedocumented in this encounter Additional Health Concerns Assessment Noted Time PHQ-9 Depression Total Score: 12 11/16/ 024 1:16 PM EST A Body Mass Index follow-up plan has been documented for the patient 08/25/2022 6:32 AM EST documented as of this encounter Care Teams Lumber Stacker Operator Relationship Specialty Start Date End Date Jaden Crabtree DO [address] [place], [place] [phone] PCP - General Family Medicine 01/17/21 documented as of this encounter
--- OUTSIDE RECORDS SUMMARY | 2025-05-29 12:04 | XMS_ITS | Encounter Summary ---
Author Organization [facility] tem Address [id number] [address] 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 ([facility]) Social History Tobacco Use Types Packs/Day Years Used Date Smoking Tobacco: Every Day Cigarettes Smokeless Tobacco: Never Comments:8 cigs per day Alcohol Use Standard Drinks/Week Comments Not Currently 0 (1 standard drink = 0.6 oz pur e alcohol) PHQ-2 Answer Date Recorded Total Score 8 08/11/2022 Childcare Answer Date Recorded Childcare Unknown 11/08/2020 Employment Answer Date Recorded Employment Unknown 11/08/2020 Purpose - Life Answer Date Recorded Purpose and direction in life Unknown Sex and Gender Information Value Date Recorded Sex Assigned at Not on file Legal Sex Male 10:25 AM EST Gender Identity Not on file Sexual Orientation Not on file documented as of this encounter Miscellaneous Notes * Telephone Encounter - Ana Almonte - 02/22/2023 9:04 AM EDT Med refill. Fludrocortisone last ordered was on 12/12/2022. 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
--- OUTSIDE RECORDS SUMMARY | 2025-05-29 12:04 | XMS_ITS | Encounter Summary ---
Author Organization [facility] Address [address] [place] [address] Care Team Providers Care Network Planner Name Role Phone Jaden Crabtree Primary Care Provider [phone] Source Comments In the event this information is protected by the Federal Confidentiality of Alcohol and Drug AbusePatient Records regulations: The Federal rules restrict any use of the information to criminally investigate or prosecute any alcohol or drug abuse patient.[facility] Reason for Visit * Reason Comments PHOTOS TAKEN Encounter Details Date Type Department Care Team (Late st Contact Info) Description 10/08/2007 Abstract Plastic Surgery [address] [address] Anup Bergman (Hist) PHOTOS TAKEN Social History Tobacco Use Types Packs/Day Years Used Date Smoking Tobacco: Former Cigarettes 1.5 20 0 10/30/1979 - 10/30/1999 Alcohol Use Standard Drinks/Week Comments Yes 0 (1 standard drink = 0.6 oz pur e alcohol) RARE Sex and Gender Information Value Date Recorded Sex Assigned at Not on file Legal Sex Male 9:51 AM EST Gender Identity Not on file Sexual Orientation Not on file documented as of this encounter Progress Notes * 10/08/2007 9:47 AM EST [id number] DATES OF PHOTOS: 10/08/2007 TAKEN WITH LENS: 3-7ft / 105mm x2 AP FACE 1:4 H x2 AP LIPS LIPS TOGETHER & APART 1:4 H x1 R OBL OF LIPS POSES: PHOTO INFO: DIAGNOSIS: SCC Bambi Shoda Photo documented in this encounter Plan of Treatment Not on file documented as of this encounter Visit Diagnoses Not on filedocumented in this encounter Additional Health Concerns Infection Onset Date Last Indicated Resolved Time COVID-19 Rule-Out 10/16/2021 10/15/2021 11/05/2021 8:51 PM EST COVID-19 Rule-Out 11/20/2022 11/20/2022 11/20/2022 5:10 PM EST COVID-19 Confirmed Comment:20 11/26/22: Pt requiring HiFlo from 2 L dima MARIOron started 11/20/2022 11/20/2022 12/10/2022 8:[address] documented as of this encounter Care Teams Network Planner Relationship Specialty Start Date End Date Jaden Crabtree [address] [place] [phone] PCP - General 06/10/02 documented as of this encounter
--- OUTSIDE RECORDS SUMMARY | 2025-05-29 12:04 | XMS_ITS | Encounter Summary ---
Author Organization [facility] Address [address] [place] [address] Care Team Providers Care Nutrition Educator Name Role Phone Jaden Crabtree Primary Care Provider [phone] Source Comments In the event this information is protected by the Federal Confidentiality of Alcohol and Drug AbusePatient Records regulations: The Federal rules restrict any use of the information to criminally investigate or prosecute any alcohol or drug abuse patient.[facility] Encounter Details Date Type Department Care Team (Late st Contact Info) Description 12/09/2007 Abstract Endocrinology [address] [phone] Rachelle Mcqueen MD [address] [phone] Social History Tobacco Use Types Packs/Day Years [...] as of this encounter Progress Notes * 12/09/2007 8:58 AM ESTReceived notes and 5h GTT results faxed from Dr Jaden Crabtree,[address] [address] (Ph) Pat being referred for syncope and reactive hypoglycemia Summary of noted dated 10-11-07, 10-27-07 and 11-11-07 Only relevant points are noted here and the final copy is sent for shredding. 10-11-07: Again, he describes that he gets a lightheaded sensation about 2 hours after he eats.On furhter questioning about his diet, he does state that he does eat quite a bit of pineapples and it is usually when he eats the pineapple, about 2 hours later is when he gets this lighheaded, funny sensation. 10-27-07 - He ate a pie with sugar on top and he subsequently had a hypoglycemic episode approximately 45 minutes later, where he states that he literally passed out . 11-11-07- He is still stating that he is having episodes of syncope from hypoglycmemia. 5 hour GTT (100 gm glucose): (10/01/07): 0 0.5H 1H 2H 3H 4H 5H Glu 92 218 [phone] Rachelle Mcqueen MD documented in this encounter Plan of Treatment Not on file documented as of this encounter Visit Diagnoses Not on filedocumented in this encounter Additional Health Concerns Infection Onset Date Last Indicated Resolved Time COVID-19 Rule-Out 10/16/2021 10/15/2021 11/05/2021 8:51 PM EST COVID-19 Rule-Out 11/20/2022 11/20/2022 11/20/2022 5:10 PM EST COVID-19 Confirmed Comment: 11/26/22: Pt requiring HiFlo from 2 L NC, decadron started 11/20/2022 11/20/2022 12/10/2022 8:[address] documented as of this encounter Care Teams Nutrition Educator Relationship Specialty Start Date End Date Jaden Crabtree [address] [place] [phone] PCP - General 06/10/02 documented as of this encounter
--- OUTSIDE RECORDS SUMMARY | 2025-05-29 12:04 | XMS_ITS | Clinical Summary ---
Author Organization [facility] Address [address] [place] [id number] Care Team Providers Care Food Safety Manager Name Role Phone Jaden Crabtree Primary Care Provider [phone] Allergies Active Allergy Reactions Criticality Noted Date Comments Moxifloxacin Hcl Rash,Hives,Itching,S hortness of Breath Medium 07/20/2006 Celecoxib Rash,Hives,GI Upset High 06/04/2017 Erythromycin Base Hives,Shortness of Breath High Clonazepam Itching Medium 06/04/2017 Levofloxacin Hives Medium 01/29/2010 Pimavanserin Hives 08/23/2020 Medications Albuterol Sulfate 1.25 mg/3 mL INHALATION nebulizer solution Use 1 Ampule via nebulizer every 6 hours as needed for Wheezing/Shortnes s of Breath. 0 Active DULoxetine (CYMBALTA) 60 mg capsule Take 1 capsule by mouth once daily. 0 6 Active pregabalin (LYRICA) 300 mg capsule Take 300 mg by mouth twice daily. Active carbidopa-levo dopa (SINEMET) 25-100 mg per tabletIndicati ons:PD (Parkinson's disease) (HCC) Take 1.5 tablets by mouth four times daily. 540 tablet 1 9 Active Additional Information Patient taking differently: (No dose reported), ORAL,(No frequency reported), Take 2 tablets by mouth at 6 am, 2 tablets at 10 am, and 1 tablet at 2 pm, 6 pm, 10 pm and 2 am. Takes with Sinemet CR, Reported on 11/20/2022 tolterodine ER (DETROL LA) 4 mg 24 hr capsule Take 4 mg by mouth once daily. 3 Active carbidopa-levo dopa CR (SINEMET CR) 25-100 mg per tablet Take 2 tablets by mouth at 6 am, 2 tablets at 10 am, and 1 tablet at 2 pm, 6 pm, 10 pm and 2 am. 3 Active midodrine (PROAMITINE) 5 mg tablet Take 3 tablets by mouth once daily. Take at 7:00am 21 tablet 3 Active midodrine (PROAMATINE) 10 mg tablet Take 1 tablet by mouth once daily. Take daily at 2:00pm 7 tablet 3 Active midodrine (PROAMATINE) 10 mg tablet Take 1 tablet by mouth once daily. Take daily at 8:00pm 7 tablet 3 Active topiramate (TOPAMAX) 100 mg tablet Take 1 tablet by mouth twice daily. 180 Each 1 3 Active acetaminophen (TYLENOL) 500 mg tablet 2 tablets by ORAL/FEEDING TUBE route three times daily. 42 tablet 3 Active benzocaine-men thol (CHLORASEPTIC) 6-10 mg lozenges Use 1 Lozenge as instructed every 2 hours as needed. 18 Each 3 Active benzonatate (TESSALON PERLE) 100 mg capsule Take 1 capsule by mouth three times daily as needed for cough. 9 capsule 3 Active fludrocortison e (FLORINEF) 0.1 mg tablet Take 1 tablet by mouth once daily. 7 tablet 3 Active glycopyrrolate (ROBINUL) 0.2 mg/mL injection Inject 1 mL intravenously or subcutaneousl every 4 hours as needed. 5 mL 3 Active guaiFENesin (MUCINEX) 600 mg 12 hr tablet Take 1 tablet by mouth every 12 hours as needed (cough, congestion). 7 tablet 3 Active ipratropium-al buterol (DUONEB) 0.5 mg-3 mg(2.5 mg base)/3 mL nebu Inhale 3 mL as instructed every 4 hours as needed for wheezing/shortnes s of breath. 10 Each 3 Active montelukast (SINGULAIR) 10 mg tablet Take 1 tablet by mouth once daily. 7 tablet 3 Active ondansetron (ZOFRAN) 4 mg tablet Take 1 tablet by mouth every 8 hours as needed for nausea/vomiting. 21 tablet 3 Active polyethylene glycol 3350 (MIRALAX, GLYCOLAX) 17 gram packet Take 1 Packet by mouth once daily. Dissolve dose in 4 - 8 ounces of liquid and take as directed. 3 Active senna (SENOKOT) 8.6 mg tab Take 1 tablet by mouth twice daily. 3 Active Active Problems Patient Care Coordination No te Formatting of this note is d ifferent from the original. Indication for MICU Admission: Significant PMH/PSH: - Parkinson's disease c/b dysautonomia (dx 2018 on carbidopa-levodopa CR and LR) - lumbosacral spinal stenosis s/p multiple L2-S1 laminectomies and spinal fusion surgeries (last 02/2022) - BPH - GERD - T2DM Hospital Course: 62 year old with PMH of Parkinson's disease c/b dysautonomia (dx 2018 on carbidopa-levodopa CR and LR), lumbosacral spinal stenosis s/p multiple L2-S1 laminectomies and spinal fusion surgeries (last 02/2022), BPH, GERD, T2DM, who was admitted to [facility] on 11/20 from the ED for syncope and hypotension. His hypotension was thought to be r/t autonomic dysfunction 2/2 PD and treated with several boluses of IVF. He was found to be COVID positive and started on remdesivir. On 11/26 AMET was called for worsening hypotension and new O2 requirement of 2L. His lactate was elevated and patient became more hypoxic requiring 6L NC. Despite multiple IVF boluses his hypotension persisted and he was started on vasopressors and transferred to MICU for septic shock secondary to Klebsiella (enterobacter) bacteremia likely 2/2 urinary source. No longer requiring pressors as of (11/27 @ approx 2130). Significant New Events Past 24: Accepted for transfer to [facility], however had episode of bradycardia to 30s while sleeping. Improved to 40s when awakened. Otherwise hemodynamically stable. Remained in ICU to monitor overnight. A/P of Major Active Problems: #Acute Hypoxemic Respiratory Failure #COVID-19 Infection CXR: pulmonary vascular congestion without overt edema, hiatal hernia S/p Remdesivir 11/21-11/23, 11/26-11/27 S/p Decadron 11/26-11/30 Plan: - Continue supplemental O2 with NC, wean for SpO2> 94% #Klebsiella Bacteremia Likely urinary source Blood Cultures (11/26) (+) Klebsiella UA: Turbid, 500 Leuk/uL, > 25/HPF WBCs, Many Bacteria Urine cx polymicrobial, LFT's WNL S/p zosyn (11/26-11/27) Off pressors since 2100 (11/27) Plan: - Continue with Cefipime (11/27- ) for a 7 day course (to end 12/03) #Sinus Bradycardia EKG with sinus bradycardia, HR 45 Presumed 11/20 medication (midodrine) Patient remains hemodynamically stable Plan: - daily EKG - Restart midodrine 15mg AM, 10mg noon, 5mg PM - continue to monitor hemodynamics #Parkinson's Disease c/b dysautonomia #Depression #Orthostatic Hypotension #Failure to Thrive Plan: - Continue Sinemet - Neurology signed off - Avoid dopaminergic blocking meds - Psych consulted, appreciate recs - 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 Cymbalta, Lyrica, Topamax - Continue Mirtazapine - Diabetic diet - Pall med consulted, appreciate recs #LLE Swelling Possibly associated with fluid, however, net negative for past 24 hours; will r/o DVT Plan: - pending b/l LE duplex US #HLD Plan: - Continue statin, ezetimibe #T2DM Assessment: Plan: - SSI - Accucheck AC/HS #Decubitus ulcer, stage 2 coccyx POA #Left lateral foot and toe wounds unstageable, POA Plan: - Wound care consulted, appreciate recs #BPH #FLAVIA - resolved Presumed post-renal 2/2 obstruction, since pt auto-diuresing well after carrington placed (11/26) Kidney US demonstrating mild R collecting system dilation Plan: - Hold trospium for now - continue home Flomax - Carrington placed for retention (11/26) - Urology consulted, maintain Carrington x10 days (through 12/05) - Plan for repeat RBUS (12/01) to follow hydronephrosis Barriers to transfer out of MICU: None Problem Noted Date Diagnosed Date Hospice care 12/06/2022 Pressure injury of coccygeal region, stage 2 03/2023 Irritant contact dermatitis due to fecal inconti nence 11/24/2022 Wound eschar of foot 11/24/2022 Overview (11/24/2022): Right and left toes Pressure injury of left foot, unstageable 2022 Overview (11/24/2022): Lateral foot Severe protein-calorie malnutrition 11/21/2022 At risk for delirium 11/21/2022 COVID-19 virus infection 11/20/2022 Generalized weakness 11/20/2022 Fall 11/20/2022 History of fusion of cervical spine 10/10/2021 Right foot drop 08/29/2020 Falls frequently 08/29/2020 Multifactorial gait disorder 08/29/2020 Spinal stenosis of lumbar region 08/29/2020 Orthostatic hypotension 08/29/2020 Near syncope 08/29/2020 Spinal stenosis of cervical region 08/29/2020 Osteoarthritis of right hip 05/03/2020 Acute cystitis without hematuria 04/27/2020 Assessment & Plan (04/27/2020 12:47 PM EDT): Assessment: per Urine Culture result. Pt. treated per susceptibility report and notified. Pt. reports he has tolerated Bactrim before ( 10/2019) Tobacco use 04/24/2020 Assessment & Plan (04/24/2020 12:23 PM EDT): Assessment: 60 pack years Currently 1/2 pack day since 01/2020 Cessation with strategies encouraged. Megaloblastic anemia due to vitamin B12 deficien cy 12/30/2019 Osteoarthritis of left hip 11/08/2019 Open wound of left heel 11/08/2019 PD (Parkinson's disease) 04/13/2019 Assessment & Plan (04/24/2020 12:22 PM EDT): Assessment: Managed with med Monitored by Neurology Stable at baseline per Pt. report Assessment & Plan (10/18/2019 12:32 PM EST): Assessment: Sinemet 4 times a day to use morning of surgery Dysphagia 04/13/2019 Psychosis due to Parkinson's disease 04/13/2019 MGUS (monoclonal gammopathy of unknown significa nce) 09/15/2018 Spinal cord stimulator status 09/07/2018 Assessment & Plan (04/24/2020 12:25 PM EDT): Assessment: for LBP generator in right hip Aware to bring remote on DOS Assessment & Plan (10/18/2019 12:34 PM EST): Assessment: Spinal cord stimulator in place to bring remote day of surgery Complete tear of right rotator cuff 08/02/2018 Iron deficiency anemia nadiya jovany to inadequate dietary iron intake 06/16/2018 Multilevel spine pain 06/02/2018 Nicotine use disorder, F17.2 03/17/2018 Assessment & Plan (10/18/2019 12:32 PM EST): Assessment: Current Smoker Obesity, Class I, BMI 30-34.9 03/17/2018 CRPS (complex regional pain syndrome type I) Status post replacement of left shoulder joint 0 02/08/2018 Shoulder arthritis 12/29/2017 Asthma 12/07/2017 Diabetes mellitus 12/07/2017 Assessment & Plan (10/18/2019 12:33 PM EST): Assessment: stable on oral medication Hemoglobin A1C (%) Date Value 05/18/2018 5.9 06/17/2017 5.3 Essential hypertension 12/07/2017 Assessment & Plan (04/24/2020 12:15 PM EDT): Assessment: Medication for Control. Date: BP: 04/24/2020 115/80 Stable. Hyperlipidemia 12/07/2017 Assessment & Plan (10/18/2019 12:32 PM EST): Assessment: stable on medication Essential tremor 10/27/2017 Assessment & Plan (04/24/2020 12:14 PM EDT): Assessment: right hand Assessment & Plan (10/18/2019 12:32 PM EST): Assessment: tremors in right hand Glenohumeral arthritis, left 10/26/2017 OA (osteoarthritis) of knee 07/01/2017 Primary osteoarthritis of right knee 05/20/2017 Overview (05/20/2017): Added automatically from request for surgery [id number] Arthritis of knee 04/27/2017 Type 2 diabetes mellitus wit hout complication, without long-term current use of insulin 04/15/2017 Assessment & Plan (04/24/2020 12:17 PM EDT): Assessment: Managed with oral med s/p gastric bypass Hemoglobin A1C (%) Date Value 10/18/2019 5.7 Chronic pain syndrome 04/15/2017 Assessment & Plan (04/24/2020 12:14 PM EDT): Assessment: lower back pain s/p SCS 02/2018 Monitored by Pain Management ( 04/03/2020) COPD with chronic bronchitis 04/15/2017 Assessment & Plan (04/24/2020 12:16 PM EDT): Assessment: Managed with inhalers No supplemental oxygen use RA 04/24/20 1148 SpO2: 97% Stable. Assessment & Plan (10/18/2019 12:33 PM EST): Assessment: Symbicort twice a day and Albuterol as needed Primary osteoarthritis of left knee 01/28/2017 Postlaminectomy syndrome 06/30/2016 Hypertrophy of prostate with urinary obstruction and other lower urinary tract symptoms (LUTS) 08/12/2010 Microstomia 08/09/2010 Frequency of urination 03/26/2010 Slow urinary stream 03/26/2010 Impotence of organic origin 10/08/2007 Malignant neoplasm of skin of lip 05/11/2007 Assessment & Plan (10/18/2019 12:33 PM EST): Assessment: s/p removal Psychosexual dysfunction, unspecified 07/31/2006 Rotator cuff syndrome of shoulder and allied dis orders 12/10/2004 Spinal stenosis, lumbar marquis on, without neurogenic claudication 08/13/2004 Displacement of cervical int ervertebral disc without myelopathy 04/17/2004 Brachial neuritis or radiculitis NOS 04/17/2004 Spinal stenosis in cervical region 03/06/2004 Displacement of thoracic int ervertebral disc without myelopathy 03/06/2004 SPRAIN OF NECK () 03/06/2004 Unspecified sleep apnea Overview (04/24/2020): Last us 2003, pt was 380 lbs at that time Assessment & Plan (04/24/2020 12:24 PM EDT): Assessment: Uses CPAP at home Resolved Problems Problem Noted Date Diagnosed Date Resolved Date Ulcerative lesion 12/07/2017 07/21/2019 Glenohumeral arthritis 07/17/201612/22 Urgency of urination 07/31/2006 023 SPRAIN OF NECK () 03/06/200412/2018 Brachial neuritis or radiculitis 03/06/2004 12/22/2018 Carpal tunnel syndrome 03/06/200412/22 Immunizations Immunization Administration Dates Next Due hepatitis B (HepB) vaccine, 3-dose series, age 20+ yr (ENGERIX-B, RECOMBIVAX HB) 08/16/2002,01/27/2002 influenza (HD-IIV3) vaccine, age 65+ yr, high dose, trivalent, PF (FLUZONE HIGH-DOSE) 08/24/2019,08/12/2016 influenza (IIV4) vaccine, ag e 6 mo - 64 yr, quadrivalent, PF (AFLURIA, FLUARIX, FLULAVAL, FLUZONE) 07/01/2017,07/23/2015 influenza (IIV4) vaccine, qu adrivalent (AFLURIA, FLULAVAL, FLUZONE) 07/17/2020,07/07/2018 influenza vaccine, unspecified formulation 07/15 novel influenza (M2G4-58) vaccine, PF 08/24/2009 pneumococcal conjugate (PCV1 3) vaccine, 13 valent (PREVNAR 13) 11/15/2018 pneumococcal polysaccharide (PPV23) vaccine, 23 valent (PNEUMOVAX 23) 08/13/1995 tetanus diphtheria pertussis (Tdap) vaccine, age 7+ yr (ADACEL, BOOSTRIX) 11/15/2018,10/22/2015 zoster (RZV) vaccine, recombinant (SHINGRIX) 12/2018 Family History Medical History Relation Comments Diabetes Maternal Grandfather Cancer Paternal Grandfather Hypertension Paternal Grandfather Diabetes Paternal Grandmother Hypertension Paternal Grandmother Cancer Paternal Uncle 6 UNCLES FR OM LUNG CA Relation Status Comments Maternal Grandfather Paternal Grandfather Paternal Grandmother Paternal Uncle Social History Tobacco Use Types Packs/Day Years Used Date Smoking Tobacco: Every Day Cigarettes 1.5 42.5 Started: 12/07/1982 Smokeless Tobacco: Never Tobacco Cessation:Ready to Q uit: No; Counseling Given: Yes Comments:currently 8 cigarettes a day Alcohol Use Standard Drinks/Week Comments [...] place to sleep or slept in a fci (including now)? No 11/25/2022 Area Deprivation Index Answer Date Ross rded National Score (1-100), lower number is lower ri sk Not on file 09/23/2020 State Score (1-10), lower number is lower risk N ot on file 09/23/2020 Data from: https://www.neighborhoodatlas.medicine.[facility].edu/. Last address used for calculation Not on file 09/23/2020 Sex and Gender Information Value Date Recorded Sex Assigned at Not on file Legal Sex Male 9:51 AM EST Gender Identity Not on file Sexual Orientation Not on file Occupation Industry Job Start Date Job End Date Retired Not on file Not on file Not on file Last Filed Vital Signs Vital Sign Reading Time Taken Comments Blood Pressure 93/59 12/06/2022 5:34 AM EST Pulse 50 12/06/2022 9:08 AM EST Temperature 36.7 C (98.1 F) 12/06/2022 5:34 AM EST Respiratory Rate 20 12/06/2022 9:08 AM EST Oxygen Saturation 100% 12/06/2022 8:58 AM EST Inhaled Oxygen Concentration - - Weight 89.2 kg (196 lb 10.4 oz) 12/01/2022 6:00 AM EST Height 177.8 cm (5' 10 ) 11/20/2022 12: 53 PM EST Body Mass Index 28.22 11/20/2022 12:53 PM EST Plan of Treatment Health Maintenance Due Date Last Done Comments Abdominal Aortic Aneurysm Screening 1958 Dilated Retinal Exam 1968 Urine Albumin:Creatinine Ratio 1968 Annual PCP Team Chronic Dise ase Visit 1976 Anxiety Screening 1976 Depression Screening 1976 Hepatitis C Screening 1976 CT Colonography 2003 Cologuard (FIT-DNA) 2003 Fecal Occult Blood 2003 Prostate Cancer Screening Discussion 2003 Sigmoidoscopy 2003 Diabetic Foot Exam 04/27/2018 04/27/2017 RSV Vaccine (1 - Risk 60-74 years 1-dose series) 2018 Shingrix Vaccine (2 of 2) 03/16/2019 01/19/2019 HbA1C 07/25/2022 01/23/2022, 07/0 04/2020, 10/18/2019, Additional history exists Pneumococcal Vaccine: 50+ (3 of 3 - PCV20 or PCV21) 11/15/2023 11/15/2018, 08/13/1995 LDL Cholesterol 11/29/2023 11/29/2022, 11/20/2022 Advance Directive Discussion 10/19/2024 Medicare Advantage Annual We llness Visit 10/19/2024 Influenza Vaccine (#1) 2025 , 09/02/2022, 10/15/2021, Additional history exists Colonoscopy 08/11/2026 08/11/2016, 08/11/2016 Colorectal Cancer Screening 08/11/2026 DTaP,Tdap,Td Vaccine (3 - Td or Tdap) 11/15/2028 11/15/2018, 10/22/2015 Medical Devices Implanted Type Area Wellfield Technician Device Identifier Shelf Expiration Date Model / Serial / Lot Restrictor 24mm Medium Hamburg Cement Revision Plug Hip - [id number] Implanted:Qty: 1 on 04/27/2017 at [facility] Cement / Putty Left: Bone - Knee [employer] 07/28/2021 [id number] / / [id number] Cement Simplex P Tobramycin Bone Full Dose Radiopaque Preblend Sterile - [id number] Implanted:Qty: 5 on 04/27/2017 at [facility] Cement / Putty Left: Bone - Knee [employer] 07/28/2018 [id number] / / [id number] Restrictor 30mm Large Hamburg Cement Revision Plug Hip - [id number] Implanted:Qty: 1 on 04/27/2017 at [facility] Cement / Putty Left: Bone - Knee [employer] 10/28/2021 [id number] / / [id number] Cement Simplex P Speedset Bone Radiopaque Sterile - [id number] Implanted:Qty: 1 on 12/29/[address] [facility] Cement / Putty Left: Bone - Shoulder [employer] 02/15/2019 [id number] / / [id number]-[id number] Implant - [id number] Implanted:Qty: 1 on 06/05/2016 at [facility] Implant N/A: Back OTHER 01/16/2019 [id number] / / [id number] Description:NEVRO JAZLYN. N300 LEAD ANCHOR KIT Head Global Unite 52mm Standard 18mm Humeral - [id number] Implanted:Qty: 1 on 12/29/[address] [facility] Implant Left: Bone - Shoulder [employer] 06/18/2025 [id number] / / [id number] Nevro Quality Lead Kit Implanted:Qty: 1 on 03/16/2018 at [facility] Implant N/A: Back OTHER 05/14/2020 [id number] / / [id number] Head V40 28mm -2.7mm Offset Taper Biolox Delta Femoral Hip - [id number] Implanted:10/20 at [facility] (Quantity not on file) Joint - Hip Left: Bone - Hip [employer] [facility] [employer] 07/29/2024 [id number] / / [id number] Liner 46mm F Cocr Acetabular Modular Dual Mobility Primary Hip - [id number] Implanted:10/20 at [facility] (Quantity not on file) Joint - Hip Left: Bone - Hip [employer] 08/29/2024 [id number] / / [id number] Insert Adm Mobile Bearing Hip Christianity 52mm 28mm 0d X3 8.9mm Acetabular - [id number] Implanted:10/20 at [facility] (Quantity not on file) Joint - Hip Left: Bone - Hip [employer] 09/28/2024 [id number] / / [id number] Insert Adm Mobile Bearing Hip Christianity 52mm 28mm 0d X3 8.9mm Acetabular - [id number] Implanted:04/18 at [facility] (Quantity not on file) Joint - Hip Right: Bone - Hip [employer] 01/09/2025 [id number] / / [id number] Head V40 28mm +4mm Offset Taper Biolox Delta Femoral Hip - [id number] Implanted:04/18 at [facility] (Quantity not on file) Joint - Hip Right: Bone - Hip [employer] 12/30/2024 [id number] / / [id number] Liner 46mm F Cocr Acetabular Modular Dual Mobility Primary Hip - [id number] Implanted:04/18 at [facility] (Quantity not on file) Joint - Hip Right: Bone - Hip [employer] [employer] 12/20/2024 [id number] / / [id number] Stem Triathlon 12mm Cocr 100mm Femoral Cemented Total Stabilized Knee - [id number] Implanted:Qty: 1 on 04/27/2017 at [facility] Joint - Knee Left: Bone - Knee [employer] [employer] [id number] / / [id number] Stem Triathlon 15mm Cocr 50mm Femoral Cemented Total Stabilize Knee - [id number] Implanted:Qty: 1 on 04/27/2017 at [facility] Joint - Knee Left: Bone - Knee [employer] [employer] 03/09/2022 [id number] / / [id number] Component Triathlon 7 Cocr Femoral Total Stabilize Knee Left - [id number] Implanted:Qty: 1 on 04/27/2017 at [facility] Joint - Knee Left: Bone - Knee [employer] [employer] 11/04/2021 [id number] / / [id number] Augment Triathlon 7 5mm Femoral Total Stabilize Knee Posterior - [id number] Implanted:Qty: 1 on 04/27/2017 at [facility] Joint - Knee Left: Bone - Knee [employer] [employer] 01/22/2022 [id number] / / [id number] Augment Triathlon 7 5mm Femoral Total Stabilize Knee Left - [id number] Implanted:Qty: 1 on 04/27/2017 at [facility] Joint - Knee Left: Bone - Knee [employer] [employer] 07/16/2022 [id number] / / [id number] Augment Triathlon 7 5mm Femoral Total Stabilize Knee Left - [id number] Implanted:Qty: 1 on 04/27/2017 at [facility] Joint - Knee Left: Bone - Knee [employer] [employer] 05/19/2020 [id number] / / [id number] Augment Triathlon 6 10mm Tibial Total Stabilize Right Medial Left Lateral - [id number] Implanted:Qty: 1 on 04/27/2017 at [facility] Joint - Knee Left: Bone - Knee [employer] [employer] 04/18/2020 [id number] / / [id number] Baseplate Triathlon 6 Hamburg Cocr Tibial Total Stabilize Cemented Knee - [id number] Implanted:Qty: 1 on 04/27/2017 at [facility] Joint - Knee Left: Bone - Knee [employer] [employer] 03/11/2022 [id number] / / [id number] Augment Triathlon 6 10mm Tibial Total Stabilize Left Medial Right Lateral - [id number] Implanted:Qty: 1 on 04/27/2017 at [facility] Joint - Knee Left: Bone - Knee [employer] 08/07/2022 [id number] / / [id number] Insert Triathlon 6 X3 16mm Tibial Total Stabilize Plus Knee - [id number] Implanted:Qty: 1 on 04/27/2017 at [facility] Joint - Knee Left: Bone - Knee [employer] [employer] 11/20/2021 [id number] / / [id number] Component Triathlon 7 Pa Femoral Cruciate Retain Bead Knee Right - [id number] Implanted:Qty: 1 on 07/01/2017 at [facility] Joint - Knee Right: Bone - Knee [employer] [facility] [employer] 02/25/2022 [id number] / / [id number] Insert Triathlon 6 X3 13mm Tibial Condylar Stabilized Knee - [id number] Implanted:Qty: 1 on 07/01/2017 at [facility] Joint - Knee Right: Bone - Knee [employer] [employer] 10/30/2021 [id number] / / [id number] Baseplate Triathlon 6 Tritanium [id number] Tibial 4 Cruciform Peg Keel Knee - [id number] Implanted:Qty: 1 on 07/01/2017 at [facility] Joint - Knee Right: Bone - Knee [employer] 03/09/2022 [id number]-B-600 / / [id number] Component Tritanium 35mm Metal 10mm Patellar Asymmetric Knee - [id number] Implanted:Qty: 1 on 07/01/2017 at [facility] Joint - Knee Right: Bone - Knee [employer] 02/23/2022 5552-L-350 / / [id number] Component Triathlon 35mm 10mm Patellar Asymmetric Knee - [id number] Implanted:Qty: 1 on 04/27/2017 at [facility] Joint - Patella Left: Bone - Knee [employer] 11/25/2021 [id number] / / [id number] Head 48mm 7mm Humeral Dameron Peg Left Glenoid - [id number] Implanted:Qty: 1 on 12/29/[address] [facility] Joint - Shoulder Left: Bone - Shoulder [employer] 08/18/2021 [id number] / / [id number] Stem Global Ap 12mm Porocoat 137mm Humeral Arthroplasty System Shoulder - [id number] Implanted:Qty: 1 on 12/29/[address] [facility] Joint - Shoulder Left: Bone - Shoulder [employer] 11/18/2025 [id number] / / [id number] Assembly Global Ap 135d Taper Fix Shoulder Arthroplasty System - [id number] Implanted:Qty: 1 on 12/29/[address] [facility] Joint - Shoulder Left: Bone - Shoulder [employer] 01/16/2027 [id number] / / [id number] Augment Triath Tib Cone Sz A - [id number] Implanted:Qty: 1 on 04/27/2017 at [facility] Joint Left: Bone - Knee [employer] 12/26/2021 5549-A-[id number] / / [id number] Stem Accolade Ii 7 127d Femoral - [id number] Implanted:10/20 at [facility] (Quantity not on file) Joint Left: Bone - Hip [employer] 03/30/2024 [id number] / / [id number] Shell Trident Ii 56mm F Tritanium Acetabular 5 Screw Hole Cluster Sterile - [id number] Implanted:10/20 at [facility] (Quantity not on file) Joint Left: Bone - Hip [employer] 06/30/2024 [id number] / / [id number] Stem Accolade Ii 7 127d Femoral - [id number] Implanted:04/18 at [facility] (Quantity not on file) Joint Right: Bone - Hip [employer] 07/03/2024 1756-6362 / / [id number] Shell Trident Ii 56mm F Tritanium Acetabular 5 Screw Hole Cluster Sterile - [id number] Implanted:04/18 at [facility] (Quantity not on file) Joint Right: Bone - Hip [employer] 09/19/2024 [id number] / / [id number] Lead 50cm Nevro - [id number] Implanted:Qty: 2 on 05/08/2016 at [facility] Lead N/RL 01/07/2019 [id number] / / [id number] Description:50 Lead 50cm Nevro - [id number] Implanted:Qty: 1 on 06/05/2016 at [facility] Lead Left: Back OTHER 02/15/2019 [id number] 0B / / [id number] Description:NEVRO BLUE PERC LEAD KIT Lead 50cm Nevro - [id number] Implanted:Qty: 1 on 06/05/2016 at [facility] Lead Right: Back OTHER 02/15/2019 [id number] [id number] / / [id number] Description:NEVRO BLUE PERC LEAD KIT Gnrtr Nrstm Ipg Kit Nevro - [id number] Implanted:Qty: 1 on 06/05/2016 at [facility] Neurostimulator N/A: Back OTHER 02/15/2018 [id number] / [id number] / [id number] Description:NEVRO NIPG KIT Procedures Procedure Name Priority Date/Time Associated Diagnosis Comments LIPID-LIPO PANEL 1 STAT Add-on 11/29/2022 2: 31 AM EST HEMOGLOBIN A1C Routine 04/24/2020 1:03 PM EDT Acute cystitis with hematuria Thin blood (HCC) 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) COLONOSCOPY - DIAGNOSTIC Routine 08/11/2016 10:20 AM EDT Screening for colon cancer from Last 3 Months or Most Recently Relevant to Health Maintenance Results * (ABNORMAL) LIPID PANEL, NONFASTING (11/29/2022 2:31 AM EST) Total Cholesterol, Nonfasting 79 <200 mg/dL 11/29/2022 10:30 PM EST [facility] Comment: <200 mg/dL, Desirable 200-239 mg/dL, Borderline high >239 mg/dL, High Triglycerides, Nonfasting 117 <150 mg/dL 11/29/2022 10:30 PM [facility] Comment: <150 mg/dL, Normal 150-199 mg/dL, Borderline high 200-499 mg/dL, High >499 mg/dL, Very high HDL Cholesterol, Nonfasting 15(L) >39 mg/dL 11/29/2022 10:30 PM [facility] Comment: 40-59 mg/dL, Acceptable >59 mg/dL, High: Negative risk factor for coronary heart disease <40 mg/dL, Low: Positive risk factor for coronary heart disease LDL Cholesterol Calculated, Nonfasting 41 <100 mg/dL 11/29/2022 10:30 PM [facility] Comment: <100 mg/dL, Optimal 100-129 mg/dL, Near optimal/above optimal 130-159 mg/dL, Borderline high 160-189 mg/dL, High >189 mg/dL, Very high Secondary prevention optimal LDL Cholesterol levels are recommended to be < 70 mg/dL Non HDL Cholesterol, Nonfasting 64 <130 mg/dL 11/29/2022 10:30 PM [facility] Comment: <130 mg/dL, Optimal 130-159 mg/dL, Near optimal/above optimal 160-189 mg/dL, Borderline high 190-219 mg/dL, High >219 mg/dL, Very high Secondary prevention optimal non HDL Cholesterol levels are recommended to be <100 mg/dL VLDL Cholesterol, Nonfasting 23 <30 mg/dL 11/29/2022 10:30 PM [facility] Total Chol/HDL Ratio, Nonfasting 5.27(H) <5.10 mg/dL 11/29/2022 10:30 PM [facility] LDL/HDL Ratio, Nonfasting 2.73(H) <2.54 mg/dL 11/29/2022 10:30 PM [facility] Comment: Reference: 1. National Cholesterol Education Program ATP III Guideline At-A-Glance Quick Desk Reference: National Heart, Lung, and Blood [place]. National Institutes of Health. 2001: NIH Publication No. 01-3305. 2. An International Atherosclerosis Society position paper: global recommendations for the management of dyslipidemia: executive summary, Atherosclerosis. 2014: 232(2):410-413. Blood BLOOD SPECIMEN / Unknown Venipuncture / Unknown 11/29/2022 2:31 AM EST 11/29/2022 2:47 AM EST Conrado Harris MD LABORATORY Final Result Performing Organization Address [facility] Co de Phone Number [facility] [address] [facility] [address] [place] [address], [place] * HGB A1C (04/24/2020 1:03 PM EDT) Hemoglobin A1C 5.6 4.3 - 5.6 % 04/24/2020 1:36 PM EDT [facility] Estimated Average Glucose 114 mg/dL 04/24/2020 1:36 PM EDT [facility] Comment: eAG: (Estimated average glucose) is a calculated value from HgbA1c and is pharmaceutical representative of the average blood glucose level in the last 2-3 month period. Blood specimen (specimen) WHOLE BLOOD SPECIMEN / Unknown 04/24/2020 1:03 PM EDT 04/24/2020 1:05 PM EDT Steven Guevara Jr., MD LABORATORY Final Re sult Performing Organization Address [facility] Co de Phone Number [facility] [address] [place] [address] [facility] [address] [facility]. [facility], [address] * COLONOSCOPY - DIAGNOSTIC (08/11/2016 10:20 AM EDT) Marketing Assistant Manager A31 Gastrointestinal Endoscopy Patient Name: Jamarcus García Procedure Date: 08/11/2016 10:20 AM Date of : 1960 Admit Type: Outpatient Age: 55 Room: A31 Procedure 10 (A3-205) Gender: Male Note Status: Finalized Attending MD: Bhupendra Barajas MD Procedure: Colonoscopy Indications: Screening for colorectal malignant neoplasm Providers: Bhupendra Barajas MD, Agus Russo MD (Fellow) Patient Profile: Last Colonoscopy: 5 years ago. Referring Physician: Medicines: Fentanyl 25 micrograms IV, Midazolam 1 mg IV, See the other procedure note for documentation of the administered medications Complications: No immediate complications. Requesting Provider: Procedure: Pre-Anesthesia Assessment: - Prior to the procedure, a History and Physical was performed, and patient medications and allergies were reviewed. The patient's tolerance of previous anesthesia was also reviewed. The risks and benefits of the procedure and the sedation options and risks were discussed with the patient. All questions were answered, and informed consent was obtained. Prior Anticoagulants: The patient has taken no previous anticoagulant or antiplatelet agents. ASA Grade Assessment: II - A patient with mild systemic disease. After reviewing the risks and benefits, the patient was deemed in satisfactory condition to undergo the procedure. After I obtained informed consent, the scope was passed under direct vision. Throughout the procedure, the patient's blood pressure, pulse, and oxygen saturations were monitored continuously. The Colonoscope was introduced through the anus and advanced to the cecum, identified by appendiceal orifice and ileocecal valve. The colonoscopy was performed without difficulty. The patient tolerated the procedure well. The quality of the bowel preparation was good. The ileocecal valve, appendiceal orifice, and rectum were photographed. Findings: The perianal exam findings include non-thrombosed external hemorrhoids. The exam was otherwise without abnormality on direct and retroflexion views. Impression: - Non-thrombosed external hemorrhoids found on perianal exam. - The examination was otherwise normal on direct and retroflexion views. - No specimens collected. Estimated Blood Loss: Estimated blood loss: none. Recommendation: - Patient has a contact number available for emergencies. The signs and symptoms of potential delayed complications were discussed with the patient. Return to normal activities tomorrow. Written discharge instructions were provided to the patient. - Discharge patient to home. - Resume previous diet. - Continue present medications. - Repeat colonoscopy in 10 years for screening purposes. - Return to referring physician. Attending Participation: I was present and participated during the entire procedure, including non-sifuentes portions. Dr. Bhupendra Barajas MD, MPH Bhupendra Barajas MD 08/11/2016 10:59:53 AM This report has been signed electronically by Bhupendra Barajas MD Number of Addenda: 0 Note Initiated On: 08/11/2016 10:20 AM Procedure Start: 10:39:18 AM Procedure End: 10:56:53 AM [facility] Anatomical Region Laterality Modality Other 08/11/2016 10:2 0 AM EDT Bhupendra Barajas MD [facility] Final Result from Last 3 Months or Most Recently Relevant to Health Maintenance Insurance [facility] Address: [address] [place] [id number] [facility] Advance Directives * DNR-CC (Latest Code Status on File) Date Activated Date Inactivated Comments 12/03/2022 3:20 PM 12/06/2022 7:51 PM Question Answer Comments DNR Order Discussed With: Patient * DNR-CCA Date Activated Date Inactivated Comments 12/01/2022 2:02 PM 12/03/2022 3:20 PM Question Answer Comments DNR Order Discussed With: Patient * Full Code Date Activated Date Inactivated Comments 11/20/2022 6:26 PM 12/01/2022 2:01 PM Question Answer Comments Full Code Order Discussed With: Patient Care Teams Food Safety Manager Relationship Specialty Start Date End Date Jaden Crabtree [address] [place] [address] PCP - General 06/10/02
--- OUTSIDE RECORDS SUMMARY | 2025-05-29 12:04 | XMS_ITS | Encounter Summary ---
Author Organization [facility] Address [address] [place] [address] Phone Care Team Providers Care Econometrics Professor Name Role Phone Jaden Crabtree DO Primary Care Provider [phone] Jaden Crabtree DO Unavailable Encounter Details Date Type Department Care Team (Late st Contact Info) Description 05/21/2023 Patient Risk Score AC Care Management [address] [place] [address] Social History Tobacco Use Types [...] on filedocumented in this encounter Care Teams Econometrics Professor Relationship Specialty Start Date End Date Jaden Crabtree DO PCP - General 08/16/21 Jaden Crabtree DO [address] [place] [address] PCP - MMO Medicare Advantage PCP 02/16/23 09/17/23 documented as of this encounter
--- OUTSIDE RECORDS SUMMARY | 2025-05-29 12:04 | XMS_ITS | Encounter Summary ---
Author Organization [facility] Address [id number] [address] [place] [address] Care Team Providers Care Finisher Brush Name Role Phone Jaden Crabtree DO Primary Care Provider [phone] Reason for Visit * Reason Onset Date Comments Med Refill 03/31/2025 Encounter Details Date Type Department Care Team (Late st Contact Info) Description 03/31/2025 Refill [facility] [address] [place] [address] [phone] Andrés Bowden MD [address] [place] [address], [facility] [address] [place] [address] Spinal stenosis of lumbar region with neurogenic claudication Social History Tobacco Use Types Packs/Day Years [...] encounter Miscellaneous Notes * Telephone Encounter - Julianna Barnes - 03/31/2025 6:31 PM EDT Refill request :traMADoL (ULTRAM) 50 mg tablet Last Filled : 09/30/2024 Last OV :03/14/2024 Next OV : 04/25/2025 The OARRS/MAPPS database was reviewed today and found to be appropriate. No indication of medication diversion, or non compliance. Reviewed by ACCOUNTING INSTRUCTOR. Pend for signature. documented in this encounter Plan of Treatment Upcoming Encounters Date Type Department Care Team (Late st Contact Info) Description 07/26/2025 10:00 AM EDT Office Visit [facility] Neurology, A Department of [address] [place] [phone] Lyn Lawton MD [address] [place] [address] [address] [place] [address] documented as of this encounter Goals Goal Patient Goal Type Associated Problems Recent Progress Patient-Stated? Author Discharge home General Yes Syklar Chisholm, RN Note: Evaluation of progress towards goal: Plan to return home with supportive , after short acute inpatient rehabilitation, for post acute care. To get my medications adjusted and get stronger General Yes Sally Garcia, ALFONSO Note: Evaluation of progress towards goal: Participating in care and rehab documented as of this encounter Visit Diagnoses Diagnosis Spinal stenosis of lumbar region with neurogenic claudication documented in this encounter Additional Health Concerns Assessment Noted Time PHQ-9 Depression Total Score: 21 024 11:29 AM EST A Body Mass Index follow-up plan has been documented for the patient 10/07/2024 3:14 PM EST documented as of this encounter Care Teams Finisher Brush Relationship Specialty Start Date End Date Jaden Crabtree DO [address] [place] [address] PCP - General Family Medicine 01/17/21 documented as of this encounter
--- OUTSIDE RECORDS SUMMARY | 2025-05-29 12:04 | XMS_ITS | Encounter Summary ---
Author Organization [facility] Address [facility] [address] [place] [address] Care Team Providers Care Physical Science Technician Name Role Phone Jaden Crabtree DO Primary Care Provider [phone] Reason for Visit * Reason Onset Date Comments Med Refill 01/08/2023 Encounter Details Date Type Department Care Team (Late st Contact Info) Description 01/08/2023 Refill [facility] [address] [place] [address] [phone] Reena Cervantes, FARRAH-NATHEN [address] [place] [address] [address] [place], [place] [phone] Current moderate episode of major depressive disorder without prior episode (CMS-HCC) Social History Tobacco Use Types Packs/Day Years [...] encounter Miscellaneous Notes * Telephone Encounter - Rachel Pearl RN - 01/08/2023 8:49 AM EDT Medication: effexor Last ordered: 12/08/2022 to [facility]. This is for [facility] Last office visit: 12/08/2022 Next office visit: none Dose verified: Prescription(s) pending for approval. * Telephone Encounter - REGAN Marcos - 01/08/2023 8:49 AM EDT Please call and ask how pt is doing on the venlafaxine and if he is taking 2 tabs per day. This wasfor depression and anxiety. If he is on 2 tabs per day we can switch to a 75 mg tabs and he will take just 1 tab per day * Telephone Encounter - Rachel Pearl RN - 01/08/2023 8:49 AM EDT I called and spoke with patient. He is on the 2 of the Effexor daily and tolerating well. Helping with anxiety and depression. Informed that a stronger tablet will be sent in so he will only need to take one daily., He voiced understanding documented in this encounter Plan of Treatment Upcoming Encounters Date Type Department Care Team (Late st Contact Info) Description 07/26/2025 10:00 AM EDT Office Visit [facility] Neurology, A Department of [address] [place] [phone] Lyn Lawton MD [address] [place] [address] [address] [place], [place] [phone] documented as of this encounter Goals Goal Patient Goal Type Associated Problems Recent Progress Patient-Stated? Author Discharge home General Yes Skylar Chisholm RN Note: Evaluation of progress towards goal: Plan to return home with supportive , after short acute inpatient rehabilitation, for post acute care. To get my medications adjusted and get stronger General Yes Sally Garcia, RN Note: Evaluation of progress towards goal: Participating in care and rehab documented as of this encounter Visit Diagnoses Diagnosis Current moderate episode of major depressive disorder without prior episode (CMS-HCC) documented in this encounter Additional Health Concerns Assessment Noted Time PHQ-9 Depression Total Score: 8 08/11/20 22 9:25 AM EDT A Body Mass Index follow-up plan has been documented for the patient 08/25/2022 6:32 AM EST documented as of this encounter Care Teams Physical Science Technician Relationship Specialty Start Date End Date Jaden Crabtree DO [address] [place] [address] PCP - General Family Medicine 01/17/21 documented as of this encounter
--- OUTSIDE RECORDS SUMMARY | 2025-05-29 12:04 | XMS_ITS ---
Author Organization [facility] Address [address] [place] [address] Care Team Providers Care Ground Operations Superintendent Name Role Phone Jaden Crabtree Primary Care Provider [phone] Active Problems Patient Care Coordination No te Formatting of this note is d ifferent from the original. Indication for MICU Admission: Significant PMH/PSH: - Parkinson's disease c/b dysautonomia (dx 2019 on carbidopa-levodopa CR and LR) - lumbosacral spinal stenosis s/p multiple L2-S1 laminectomies and spinal fusion surgeries (last 02/2022) - BPH - GERD - T2DM Hospital Course: 62 year old with PMH of Parkinson's disease c/b dysautonomia (dx 2019 on carbidopa-levodopa CR and LR), lumbosacral spinal stenosis s/p multiple L2-S1 laminectomies and spinal fusion surgeries (last 02/2022), BPH, GERD, T2DM, who was admitted to [facility] on 11/20 from the ED for syncope and hypotension. His hypotension was thought to be r/t autonomic dysfunction 2/2 PD and treated with several boluses of IVF. He was found to be COVID positive and started on remdesivir. On 28 AMET was called for worsening hypotension and new O2 requirement of 2L. His lactate was elevated and patient became more hypoxic requiring 6L NC. Despite multiple IVF boluses his hypotension persisted and he was started on vasopressors and transferred to MICU for septic shock secondary to Klebsiella (enterobacter) bacteremia likely 2/2 urinary source. No longer requiring pressors as of (2/09 @ approx 2130). Significant New Events Past 24: Accepted for transfer to [facility], however had episode of bradycardia to [...] EKG with sinus bradycardia, HR 45 Presumed / medication (midodrine) Patient remains hemodynamically stable Plan: - daily EKG - Restart midodrine 15mg AM, 10mg noon, 5mg PM - continue to monitor hemodynamics #Parkinson's Disease c/b dysautonomia #Depression #Orthostatic Hypotension #Failure to Thrive Plan: - Continue Sinemet - Neurology signed off - Avoid dopaminergic blocking meds - Psych consulted, appreciate recs - Continue QUANTITATIVE DEVELOPER Cymbalta, Lyrica, Topamax - Continue Mirtazapine - [...] (05/20/2017): Added automatically from request for surgery [id number] Arthritis of knee 04/27/2017 Type 2 diabetes [...] PM EDT): Assessment: Uses CPAP at home Current Treatment and Therapy Plans No current plan information found. Past Treatment and Therapy Plans Resolved Problems Problem Noted Date Diagnosed Date Resolved Date Ulcerative lesion 12/07/2017 07/21/2019 Glenohumeral arthritis 07/17/201612/22 Urgency of urination 07/31/2006 023 SPRAIN OF NECK () 03/06/200412/2018 Brachial neuritis or radiculitis 03/06/2004 12/22/2018 Carpal tunnel syndrome 03/06/200412/22
--- OUTSIDE RECORDS SUMMARY | 2025-05-29 12:04 | XMS_ITS | Encounter Summary ---
Author Organization [facility] Address [address] [place] [address] Phone Care Team Providers Care Template Inspector Name Role Phone Jaden Crabtree DO Primary Care Provider [phone] Jaden Crabtree DO Unavailable Encounter Details Date Type Department Care Team (Late st Contact Info) Description 04/20/2023 Patient Risk Score AC Care Management [address] [place] [address] Social History Tobacco Use Types [...] on filedocumented in this encounter Care Teams Template Inspector Relationship Specialty Start Date End Date Jaden Crabtree DO PCP - General 08/16/21 Jaden Crabtree DO [address] [place] [address] PCP - MMO Medicare Advantage PCP 02/16/23 09/17/23 documented as of this encounter
--- OUTSIDE RECORDS SUMMARY | 2025-05-29 12:04 | XMS_ITS | Encounter Summary ---
Author Organization [facility] Address [address] [place] [address] Care Team Providers Care Freight Shipping Agent Name Role Phone Unavailable Primary Care Provider Unavailabl e Encounter Details Date Type Department Care Team (Late st Contact Info) Description 03/10/2024 Clinisync Result Encounter [facility] External Department Unsolicited Tracey Marin MD [address], [address] [address] Social History Tobacco Use Types Packs/Day Years Used Date Smoking Tobacco: Never Assessed Sex and Gender Information Value Date Recorded Sex Assigned at Not on file Legal Sex Male 7:03 PM EDT Gender Identity Not on file Sexual Orientation Not on file documented as of this encounter Plan of Treatment Not on file documented as of this encounter Procedures Procedure Name Priority Date/Time Associated Diagnosis Comments VASC US ABDOMINAL AORTA ANUERYSM AAA SCREENING 03/10/2024 2:31 PM EDT documented in this encounter Results * Vascular US abdominal aorta anuerysm AAA screening (03/10/2024 2:31 PM EDT) Anatomical Region Laterality Modality Abdomen Ultrasound 03/10/2024 2:31 PM EDT Narrative 03/10/2024 2:33 PM EDT The [address] [address] Vein Report Signed Patient: ALISIA CORREA MR#: [id number] : 1960 Acct:[id number] Age/Sex: 63 / M ADM Date: 03/10/24 Loc: [facility] Attending Dr: Tracey Marin M.D. Ordering Physician: Tracey Marin M.D. Date of Service: 03/10/24 Procedure(s): VC US AAA SCREEN Accession Number(s): [id number] cc: ELLEN ARIAS ; Tracey Marin M.D. The [address] [address] Patient Name: ALISIA CORREA MRN: [id number] date: 1960 Sex: M Assigned Patient Location: Current Patient Location: VC Accession/Order Number: [id number] Exam Date: 03/10/2024 10:05 Report Date: 03/10/2024 14:31 At the request of: TRACEY MARIN Procedure: VC US AAA SCREEN EXAM: VC US AAA SCREEN HISTORY: eNCOUNTER FOR SCREENING FOR AAA IN PATIENT 48 YEARS OF z13. COMPARISON: None. TECHNIQUE: Grayscale and color ultrasound FINDINGS: Proximal aorta: 3.0 x 3.1 cm Mid aorta: 2.3 x 2.4 cm Distal aorta: 2.3 x 2.2 cm Right common iliac artery: 2.0 x 2.0 cm Left common iliac artery: 1.5 x 1.5 cm Normal color Doppler flow throughout No significant atherosclerotic plaque. Scattered dilated collateral veins measuring up to 1.4 cm VEIN/VC US AAA SCREEN IMPRESSION: No aortic aneurysm Dilated collateral veins Electronically authenticated by: LIZETH MCDONOUGH Date: 03/10/2024 14:31 Dictated By: Lizeth Mcdonough M.D. Signed By: 03/10/24 1433 DD/ 1431 TD/TT: Peanut Farmer: Procedure Note Radiology, Radiologist, MD - 03/11/2024 [place] [address] Vein Report Signed Patient: ALISIA CORREA LMR#: [id number] : 1960cct:[id number] Age/Sex: 63 / MADM Date: 03/10/24 Loc: VC Attending Dr: Tracey Marin M.D. Ordering Physician: Tracey Marin M.D. Date of Service: 03/10/24 Procedure(s): VC US AAA SCREEN Accession Number(s): [id number] cc: ELLEN ARIAS ; Tracey Marin M.D. The [address] [address] Patient Name: ALISIA CORREA MRN: [id number] date: 1960 Sex: M Assigned Patient Location: Current Patient Location: Accession/Order Number: [id number] Exam Date: 03/10/2024 10:05 Report Date: 03/10/2024 14:31 At the request of: TRACEY MARIN Procedure: VC US AAA SCREEN EXAM: VC US AAA SCREEN HISTORY: eNCOUNTER FOR SCREENING FOR AAA IN PATIENT 48 YEARS OF z13. COMPARISON: None. TECHNIQUE: Grayscale and color ultrasound FINDINGS: Proximal aorta: 3.0 x 3.1 cm Mid aorta: 2.3 x 2.4 cm Distal aorta: 2.3 x 2.2 cm Right common iliac artery: 2.0 x 2.0 cm Left common iliac artery: 1.5 x 1.5 cm Normal color Doppler flow throughout No significant atherosclerotic plaque. Scattered dilated collateral veins measuring up to 1.4 cm VEIN/VC US AAA SCREEN IMPRESSION: No aortic aneurysm Dilated collateral veins Electronically authenticated by: LIZETH MCDONOUGH Date: 03/10/2024 14:31 Dictated By: Lizeth Mcdonough M.D. Signed By:03/10/24 1433 DD/ 143 TD/TT: Peanut Farmer: Tracey HOFF US PROCEDURES Final Resu lt documented in this encounter Visit Diagnoses Not on filedocumented in this encounter
--- OUTSIDE RECORDS SUMMARY | 2025-05-29 12:04 | XMS_ITS | Encounter Summary ---
Author Organization [facility] Address [address] [place] [address] Phone Care Team Providers Care Talent Management Specialist Name Role Phone Jaden Crabtree DO Primary Care Provider [phone] Encounter Details Date Type Department Care Team (Late st Contact Info) Description 09/20/2023 Patient Risk Score ACO Care Management [address] [facility] [address] [place] [address] Social History Tobacco Use Types [...] on filedocumented in this encounter Care Teams Talent Management Specialist Relationship Specialty Start Date End Date Jaden Crabtree DO PCP - General 08/16/21 documented as of this encounter
--- OUTSIDE RECORDS SUMMARY | 2025-05-29 12:04 | XMS_ITS | Encounter Summary ---
Author Organization [facility] Address [id number] [address] [place] [address] Care Team Providers Care Spindle Carver Name Role Phone Jaden Crabtree DO Primary Care Provider [phone] Reason for Visit * Reason Comments Med Refill Encounter Details Date Type Department Care Team (Late st Contact Info) Description 10/16/2022 Refill [facility] [address] [place] [phone] Reena Cervantes APRN-CNP [address] [place] [address] 101, [address], [address] [place], [place] [phone] Parkinson's disease ([facility]) Social History Tobacco Use Types Packs/Day Years [...] encounter Miscellaneous Notes * Telephone Encounter - REGAN Marcos - 10/16/2022 5:25 PM EST Please check with pt to see where he is getting his meds. Dr. Bowden ordered this in July documented in this encounter Plan of Treatment Upcoming Encounters Date Type Department Care Team (Late st Contact Info) Description 07/26/2025 10:00 AM EDT Office Visit [facility] Neurology, A Department of [address], [address], [address] [place] [phone] Lyn Lawton MD [address] [place] [address] 101, [address], [address] [place] [address] documented as of this encounter Goals Goal [...] as of this encounter Visit Diagnoses Diagnosis Parkinson's disease (CMS-HCC) Paralysis agitans documented in this encounter Additional Health Concerns Assessment Noted Time PHQ-9 Depression Total Score: 8 08/11/20 22 9:25 AM EDT A Body Mass Index follow-up plan has been documented for the patient 08/25/2022 6:32 AM EST documented as of this encounter Care Teams Spindle Carver Relationship Specialty Start Date End Date Jaden Crabtree DO [address] [place] [address] PCP - General Family Medicine 01/17/21 documented as of this encounter
--- OUTSIDE RECORDS SUMMARY | 2025-05-29 12:04 | XMS_ITS | Clinical Summary ---
Author Organization [facility] Address [address] [place] [address] Care Team Providers Care Technology Project Manager Name Role Phone Unavailable Primary Care Provider Unavailabl e Encounters Date Type Department Care Team Description 04/11/2025 Clinisync Result Encounter [facility] External Department Unsolicited Tracey Marin MD 02/28/2025 Clinisync Result Encounter [facility] External Department Unsolicited Tracey Marin MD from Last 3 Months Social History Tobacco Use Types Packs/Day Years Used Date Smoking Tobacco: Never Assessed Sex and Gender Information Value Date Recorded Sex Assigned at Not on file Legal Sex Male 7:03 PM EDT Gender Identity Not on file Sexual Orientation Not on file Last Filed Vital Signs Vital Sign Reading Time Taken Comments Blood Pressure 120/66 01/24/2019 12:00 PM EDT Pulse - - Temperature - - Respiratory Rate - - Oxygen Saturation - - Inhaled Oxygen Concentration - - Weight 112 kg (246 lb) 01/24/2019 12:00 PM EDT Height 180.3 cm (5' 11 ) 01/24/2019 12:00 PM EDT Body Mass Index 34.31 01/24/2019 12:00 PM EDT Plan of Treatment Not on file Procedures Procedure Name Priority Date/Time Associated Diagnosis Comments SEGMENTAL BLOOD PRESSURE 04/11/2025 3:48 PM EDT VASC US ABDOMINAL AORTA ANUERYSM AAA SCREENING 02/28/2025 11:39 AM EDT from Last 3 Months Results * SEGMENTAL BLOOD PRESSURE (04/11/2025 3:48 PM EDT) Anatomical Region Laterality Modality Radiographic Jennifer ging 04/11/2025 3:48 PM EDT Narrative 04/11/2025 10:14 PM EDT The [address] [address] Cardiology Report Signed Patient: ALISIA CORREA MR#: [id number] : 1960 Acct:[id number] Age/Sex: 64 / M ADM Date: 04/11/25 Loc: CARD Attending Dr: Tracey Marin M.D. Ordering Physician: Tracey Marin M.D. Date of Service: 04/11/25 Procedure(s): CA segmental UE or LE MARIXA Accession Number(s): [id number] cc: ELLEN ARIAS ; Tracey Marin M.D. [facility] Test Date: 2025-04-11 Pat Name: ALISIA CORREA Department: Room: - Gender: Male Chain Carrier: : 1960 Requested By: 1892 Order Number: [id number] Reading MD: JOSY JC M.D. Interpretive Statements Summary of the findings: Right leg: ANUJA= 1.13; TBI= 0.53. Doppler waveforms demonstrate biphasic flow at the posterior tibial and dorsalis pedis arteries. Left leg: ANUJA= 1.20; TBI= 0.31. Doppler waveforms demonstrate biphasic flow at the posterior tibial and dorsalis pedis arteries. Segmental pressures: Segmental pressures suggest possible right femoropopliteal disease. Pulse volume recordings: PVRs at the high thigh, below knee, and ankle levels show grossly normal waveforms. Conclusion: Right and left ankle-brachial indices are suggestive of normal overall arterial flow at rest. Toe-brachial indices are suggestive of bilateral PAD. Segmental pressures suggest possible right femoropopliteal disease. Pulse volume recordings indicate good overall resting arterial flow. The study shows evidence of PAD with normal overall arterial flow at rest. There is likely left sided femoropopliteal disease and significantly reduced toe perfusion. Electronically Signed On 04-11-2025 22:13:29 EDT by JOSY JC M.D. Dictated By: JOSY JC Signed By: 04/11/25 2214 04/11/254 DD/ 1548 TD/TT: Director Of Curriculum: Procedure Note Radiology, Radiologist, MD - 04/11/2025 The [place] [id number] Cardiology Report Signed Patient: ALISIA CORREA LMR#: [id number] : 1960cct:[id number] Age/Sex: 64 / MADM Date: 04/11/25 Loc: CARD Attending Dr: Tracey Marin M.D. Ordering Physician: Tracey Marin M.D. Date of Service: 04/11/25 Procedure(s): CA segmental UE or LE MARIXA Accession Number(s): [id number] cc: ELLEN ARIAS ; Tracey Marin M.D. [facility] Test Date: 2025-04-11 Pat Name: ALISIA CORREA Department: Room: - Gender: Male Chain Carrier: : 1960 Requested By: 1892 Order Number: [id number] Reading MD: JOSY JC M.D. Interpretive Statements Summary of the findings: Right leg: ANUJA= 1.13; TBI= 0.53. Doppler waveforms demonstrate biphasicflow at the posterior tibial and dorsalis pedis arteries. Left leg: ANUJA= 1.20; TBI= 0.31. Doppler waveforms demonstrate biphasicflow at the posterior tibial and dorsalis pedis arteries. Segmental pressures: Segmental pressures suggest possible right femoropopliteal disease. Pulse volume recordings: PVRs at the high thigh, below knee, and anklelevels show grossly normal waveforms. Conclusion: Right and left ankle-brachial indices are suggestive of normal overall arterial flow at rest. Toe-brachial indices are suggestive of bilateralPAD. Segmental pressures suggest possible right femoropopliteal disease. Pulse volume recordings indicate good overall resting arterial flow. The study shows evidence of PAD with normal overall arterial flow at rest. There is likely left sided femoropopliteal disease and significantlyreduced toe perfusion. Electronically Signed On 04-11-2025 22:13:29 EDT by JOSY JC M.D. Dictated By: JOSY JC Signed By:04/11/254 04/11/252213 DD/ 1548 TD/TT: Director Of Curriculum: us Tracey Marin MD IMG XR PROCEDURES Final Resu lt * Vascular US abdominal aorta anuerysm AAA screening (02/28/2025 11:39 AM EDT) Anatomical Region Laterality Modality Abdomen Ultrasound 02/28/2025 11:3 9 AM EDT Narrative 02/28/2025 11:42 AM EDT [address] [address] Ultrasound Report Signed Patient: ALISIA CORREA MR#: [id number] : 1960 Acct:[id number] Age/Sex: 64 / M ADM Date: 02/28/25 Loc: US Attending Dr: Tracey Marin M.D. Ordering Physician: Tracey Marin M.D. Date of Service: 02/28/25 Procedure(s): US abdominal aortic aneurysm Accession Number(s): [id number] cc: ELLEN ARIAS ; Tracey Marin M.D. [place] [id number] Patient Name: ALISIA CORREA MRN: [id number] date: 1960 Sex: M Assigned Patient Location: US Current Patient Location: US Accession/Order Number: [id number] Exam Date: 02/28/2025 11:36 Report Date: 02/28/2025 11:39 At the request of: TRACEY MARIN MD Procedure: US abdominal aortic aneurysm ULTRASOUND ABDOMINAL AORTA CLINICAL DATA: Screening for aneurysm. History of tobacco use. COMPARISON: CT 06/22/2024 Mild atherosclerotic plaque is visualized. No aortic aneurysm is seen. Proximally, the aorta measures 2.1 x 2.4 cm. At the midsegment, the aorta measures 1.8 x 1.9 cm. Distally, the aorta measures 2.0 x 1.9 cm. The bifurcation is identified and the iliac arteries are normal caliber. This is no perinephric fluid. US/US abdominal aortic aneurysm IMPRESSION: NO AORTIC ANEURYSM. Impression dictated by: Geneva Garcia M.D. 02/28/2025 11:39 AM Dictation Location: [place] [address] Electronically authenticated by: [id number] Y Date: 02/28/2025 11:39 Dictated By: Geneva Garcia M.D. Signed By: 02/28/25 1142 DD/ 1139 TD/TT: Director Of Curriculum: Procedure Note Radiology, Radiologist, - 02/28/2025 [place] [address] Ultrasound Report Signed Patient: ALISIA CORREA LMR#: [id number] : 1960cct:[id number] Age/Sex: 64 / MADM Date: 02/28/25 Loc: US Attending Dr: Tracey Marin M.D. Ordering Physician: Tracey Marin M.D. Date of Service: 02/28/25 Procedure(s): US abdominal aortic aneurysm Accession Number(s): [id number] cc: ELLEN ARIAS ; Tracey Marin M.D. The [place] [address] Patient Name: ALISIA CORREA MRN: [id number] date: 1960 Sex: M Assigned Patient Location: US Current Patient Location: US Accession/Order Number: [id number] Exam Date: 02/28/2025 11:36 Report Date: 02/28/2025 11:39 At the request of: TRACEY MARIN MD Procedure: US abdominal aortic aneurysm ULTRASOUND ABDOMINAL AORTA CLINICAL DATA: Screening for aneurysm. History of tobacco use. COMPARISON: CT 06/22/2024 Mild atherosclerotic plaque is visualized. No aortic aneurysm is seen. Proximally, the aorta measures 2.1 x 2.4 cm. At the midsegment, the aorta measures 1.8 x 1.9 cm. Distally, the aorta measures 2.0 x 1.9 cm. The bifurcation is identified and the iliac arteries are normal caliber. Thisis no perinephric fluid. US/US abdominal aortic aneurysm IMPRESSION: NO AORTIC ANEURYSM. Impression dictated by: Geneva Garcia M.D. 02/28/2025 11:39 AM Dictation Location: [place] [address] Electronically authenticated by: [id number] Y Date: 1:39 Dictated By: Geneva Garcia M.D. Signed By:02/28/25 1142 DD/ 1139 TD/TT: Director Of Curriculum: us Tracey Marin MD IM US PROCEDURES Final Resu lt from Last 3 Months
--- OUTSIDE RECORDS SUMMARY | 2025-05-29 12:04 | XMS_ITS | Encounter Summary ---
Author Organization [facility] Address [id number] [address] [place] [address] Care Team Providers Care Field Traffic Investigator Name Role Phone Jaden Crabtree DO Primary Care Provider [phone] Encounter Details Date Type Department Care Team (Late st Contact Info) Description 03/19/2021 Orders Only [facility] [address] [place] [address] Omar Arias CMA Erythema; PAD (peripheral artery disease) ([facility] Claudication ([facility]); Swelling of lower extremity; Venous insufficiency of both lower extremities; Discoloration of skin of lower leg Social History Tobacco Use Types Packs/Day Years Used Date Smoking Tobacco: Every Day Cigarettes Smokeless Tobacco: Never Comments:8 cigs per day Alcohol Use Standard Drinks/Week Comments Not Currently 0 (1 standard drink = 0.6 oz pur e alcohol) Childcare Answer Date Recorded Childcare Unknown 11/08/2020 Employment Answer Date Recorded Employment Unknown 11/08/2020 Purpose - Life Answer Date Recorded Purpose and direction in life Unknown Sex and Gender Information Value Date Recorded Sex Assigned at Not on file Legal Sex Male 10:25 AM EST Gender Identity Not on file Sexual Orientation Not on file COVID-19 Exposure Response Date Recorded In the last month, have you been in contact with someone who was confirmed or suspected to have Coronavirus / COVID-19? No / Unsure 03/14/2021 10:08 AM EDT documented as of this encounter Plan of Treatment Upcoming Encounters Date Type Department Care Team (Late st Contact Info) Description 07/26/2025 10:00 AM EDT Office Visit [facility], A Department of [address], [address] [place] [phone] Lyn Lawton MD [address] [facility] [address], [address], [address] [place] [address] documented as of this encounter Goals Goal [...] Procedure Name Priority Date/Time Associated Diagnosis Comments CT CTA ABD AORTA W RUNOFF Routine 03/19/2021 12:01 PM EDT Erythema CREATININE, SERUM Routine 03/19/2021 CREATININE, SERUM Routine 01/31/2021 PAD (peripheral artery disease) ([facility]) Claudication ([facility]) Swelling of lower extremity Venous insufficiency of both lower extremities Discoloration of skin of lower leg Erythema documented in this encounter Results * CT angiogram abdominal aorta with runoff (03/19/2021 12:01 PM EDT) Anatomical Region Laterality Modality Body, Abdomen, Body Covera N/A Compu jacqueline Tomography us Sergio Anguiano MD IMG CT ORDERABLES Final Result * Creatinine includes GFR, serum (03/19/2021) us Not In System Ref Prov LAB BLOOD ORDERABLES Deanna l Result MANUALLY TRANSCRIBED RESULTS * Creatinine includes GFR, serum (01/31/2021) External Creatinine 1.13 SUNQUEST External Gfr Amer >60 SUNQUEST External Gfr Non Amer >80 SUNQUEST 01/31/2021 us Sergio Anguiano MD LAB BLOOD ORDERABLES Final Resu lt MARY ANN documented in this encounter Visit Diagnoses Diagnosis Erythema Unspecified erythematous condition PAD (peripheral artery disease) Unspecified peripheral vascular disease Claudication Unspecified peripheral vascular disease Swelling of lower extremity Venous insufficiency of both lower extremities Discoloration of skin of lower leg documented in this encounter Additional Health Concerns Assessment Noted Time A Body Mass Index follow-up plan has been documented for the patient 01/18/2021 11:36 AM EDT documented as of this encounter Care Teams Field Traffic Investigator Relationship Specialty Start Date End Date Jaden Crabtree DO [address] [place] [address] PCP - General Family Medicine 01/17/21 documented as of this encounter
--- OUTSIDE RECORDS SUMMARY | 2025-05-29 12:04 | XMS_ITS | Encounter Summary ---
Author Organization [facility] [employer] [facility] tem Address [id number] [address] [place] [address] Care Team Providers Care Farmer Tree Fruit [employer] Nut [employer]ps Name Role Phone Michiramirez Jaden Dawson DO Primary Care Provider Encounter Details Date Type Department Care Team (Late st Contact Info) Description 09/28/2021 Orders Only [facility] [address] [place] [address] Shakeel Leiva MD Social History Tobacco Use Types Packs/Day Years [...] have Coronavirus / COVID-19? No / Unsure 09/26/2021 11:56 AM EST documented as of this encounter Plan of Treatment Upcoming Encounters Date Type Department Care Team (Late st Contact Info) Description 07/26/2025 10:00 AM EDT Office Visit [facility], A Department of [facility] [address] [facility] [address] [place] [address] Lyn Lawton MD [address] [place] [address] 101, [address] [place] [address] documented as of this encounter Goals Goal Patient Goal Type Associated Problems Recent Progress Patient-Stated? Author Discharge home General Yes Skylar Chishoml, RN Note: Evaluation of progress towards goal: [...] documented as of this encounter Care Teams Farmer [employer] Relationship Specialty Start Date End Date Jaden Crabtree DO [address] [place] [address] PCP - General Family Medicine 01/17/21 documented as of this encounter
--- OUTSIDE RECORDS SUMMARY | 2025-05-29 12:04 | XMS_ITS | Encounter Summary ---
Author Organization [facility] tem Address [id number] [address] [place] [address] Care Team Providers Care Roll Hauler Name Role Phone Jaden Crabtree DO Primary Care Provider [phone] Reason for Visit * Reason Onset Date Comments Reschd appt 12/19/2021 Encounter Details Date Type Department Care Team (Late st Contact Info) Description 12/19/[address] [facility] [address] [place] [phone] Carmen Espinal Reschd appt Social History Tobacco Use Types Packs/Day Years [...] encounter Miscellaneous Notes * Telephone Encounter - Carmen Espinal - 12/19/2021 11:51 AM EST Patient's appointment needs to be rescheduled at this time due to provider out of clinic. Called and left message and sent letter. Date: 04/29/22 Provider: Dr. Bowden Rescheduling Instructions: Next Available documented in this encounter Plan of Treatment Upcoming Encounters Date Type Department Care Team (Late st Contact Info) Description 07/26/2025 10:00 AM EDT Office Visit [facility], A Department of [address], [address], [address] [place] [phone] Lyn Lawton MD [address] [place] [address] 101, [address], [address] [place] [address] documented as of this encounter Goals Goal Patient Goal Type Associated Problems Recent Progress Patient-Stated? Author Discharge home General Yes Skylar Chisholm, ALFONSO Note: Evaluation of progress towards goal: Plan [...] documented as of this encounter Care Teams Roll Hauler Relationship Specialty Start Date End Date Jaden Crabtree DO [address] [place] [address] PCP - General Family Medicine 01/17/21 documented as of this encounter
--- OUTSIDE RECORDS SUMMARY | 2025-05-29 12:04 | XMS_ITS | Encounter Summary ---
Author Organization [facility] [employer] [facility] tem Address [id number] [address] [place] [address] Care Team Providers Care Pelletizer Tender Name Role Phone Jaden Crabtree DO Primary Care Provider [phone] Encounter Details Date Type Department Care Team (Late Contact Info) Description 02/18/2024 Orders Only [facility] [address] [place] [phone] Ref Prov, [place] [address] Social History Tobacco Use Types Packs/Day Years [...] Office Visit [facility], A Department of [address] [place] [phone] Lyn Lawton MD [address] [place] [address] 101, [address], [address] [place] [address] documented as of this encounter Goals Goal [...] Procedure Name Priority Date/Time Associated Diagnosis Comments FL SWALLOW MOTILITY FUNCTION Routine 02/18/2024 10:14 AM EDT FL SWALLOW MOTILITY FUNCTION Routine 02/18/2024 10:11 AM EDT documented in this encounter Results * Fluoroscopy swallow motility function (02/18/2024 10:14 AM EDT) Anatomical Region Laterality Modality Chest, Abdomen, Body Radiographi c Imaging us Not In System Ref Prov IMG FLUOROSCOPY ORDERABLE S Final Result * Fluoroscopy swallow motility function (02/18/2024 10:11 AM EDT) Anatomical Region Laterality Modality Chest, Abdomen, Body Radiographi c Imaging us Not In System Ref Prov IMG FLUOROSCOPY ORDERABLE S Final Result documented in this encounter Visit Diagnoses Not on filedocumented in this encounter Additional Health Concerns Assessment Noted Time PHQ-9 Depression Total Score: 12 024 1:16 PM EST A Body Mass Index follow-up plan has been documented for the patient 08/25/2022 6:32 AM EST documented as of this encounter Care Teams Pelletizer Tender Relationship Specialty Start Date End Date Jaden Crabtree DO [address] [place] [address] PCP - General Family Medicine 01/17/21 documented as of this encounter
--- OUTSIDE RECORDS SUMMARY | 2025-05-29 12:04 | XMS_ITS | Encounter Summary ---
Author Organization [facility] Address [address] [place] [address] Care Team Providers Care Entry Engineer Name Role Phone Jaden Crabtree Primary Care Provider [phone] Source Comments In the event this information is protected by the Federal Confidentiality of Alcohol and Drug AbusePatient Records regulations: The Federal rules restrict any use of the information to criminally investigate or prosecute any alcohol or drug abuse patient.[facility] Encounter Details Date Type Department Care Team (Late st Contact Info) Description 06/16/2016 Abstract Gastroenterology [address] [place] [id number] Bhupendra Barajas MD [address] [place] [address] Social History Tobacco Use Types Packs/Day Years Used Date Smoking Tobacco: Former Cigarettes 1.5 20 0 10/30/1979 - 10/30/1999 Smokeless Tobacco: Never Comments:started smoking aga in x 2 months, patient uses vapor Alcohol Use Standard Drinks/Week Comments No 0 (1 standard drink = 0.6 oz pur e alcohol) Sex and Gender Information Value Date Recorded Sex Assigned at Not on file Legal Sex Male 9:51 AM EST Gender Identity Not on file Sexual Orientation Not on file documented as of this encounter Functional Status * Are you deaf or do you have serious difficulty hearing? Answer Date of Assessment Author Yes 01/12/2015 10:11 AM EDT Ruel Ortiz atima, PCNA * Are you blind or do you have serious difficulty seeing, even when wearing glasses? Answer Date of Assessment Author No 01/12/2015 10:11 AM EDT Ruel Ortiz atima, PCNA * Do you have serious difficulty walking or climbing stairs? Answer Date of Assessment Author Yes 01/12/2015 10:11 AM EDT AngelRuel canela atima, PCNA * Do you have difficulty dressing or bathing? Answer Date of Assessment Author No 01/12/2015 10:11 AM EDT Ruel Ortiz atima, PCNA * Because of a physical, mental, or emotional condition, do you have difficulty doing errands alone such as visiting a doctor's office or shopping? Answer Date of Assessment Author No 01/12/2015 10:11 AM EDT Ruel Ortiz atima, PCNA documented as of this encounter Mental Status * Because of a physical, mental, or emotional condition, do you have serious difficulty concentrating, remembering, or making decisions? Answer Entry Date Author No 01/12/2015 10:11 AM EDT Ruel Ortiz atima, PCNA documented in this encounter Plan of Treatment Not on file documented as of this encounter Visit Diagnoses Not on filedocumented in this encounter Additional Health Concerns Infection Onset Date Last Indicated Resolved Time COVID-19 Rule-Out 10/16/2021 10/15/2021 11/05/2021 8:51 PM EST COVID-19 Rule-Out 11/20/2022 11/20/2022 11/20/2022 5:10 PM EST COVID-19 Confirmed Comment:20 day 11/26/22: Pt requiring HiFlo from 2 L NC, decadron started 11/20/2022 11/20/2022 12/10/2022 8:[address] documented as of this encounter Care Teams Entry Engineer Relationship Specialty Start Date End Date Jaden Crabtree [address] [place] [phone] PCP - General 06/10/02 documented as of this encounter
--- OUTSIDE RECORDS SUMMARY | 2025-05-29 12:04 | XMS_ITS | Encounter Summary ---
Author Organization [facility] tem Address [id number] [address] [place] [address] Care Team Providers Care Bank Messenger Name Role Phone Jaden Crabtree DO Primary Care Provider [phone] Reason for Visit * Reason Onset Date Comments Med Refill 05/21/2022 Encounter Details Date Type Department Care Team ([facility] Contact Info) Description 05/21/2022 Telephone [facility] Neurology [address] [place] [phone] Susanna Tao Med Refill Social History Tobacco Use Types Packs/Day Years [...] encounter Miscellaneous Notes * Telephone Encounter - Susanna Tao - 05/21/2022 4:21 PM EDT Medication Refill request: Medication Name and Strength: carbidopa-levodopa (SINEMET CR) 25-100 mg per CR tablet 30 day or 90 day supply preferred: 90 day Pharmacy Name: [facility] [address] [place] [address] Request was made by: Medicine Paige documented in this encounter Plan of Treatment Upcoming Encounters Date Type Department Care Team (Late st Contact Info) Description 07/26/2025 10:00 AM EDT Office Visit [facility] Neurology, A Department of [address] [place] [phone] Lyn Lawton MD [address] [place] [address] [address] [place] [address] documented as of this encounter Goals Goal [...] documented as of this encounter Care Teams Bank Messenger Relationship Specialty Start Date End Date Jaden Crabtree DO [address] [place] [address] PCP - General Family Medicine 01/17/21 documented as of this encounter
--- OUTSIDE RECORDS SUMMARY | 2025-05-29 12:04 | XMS_ITS | Encounter Summary ---
Author Organization [facility] tem Address [id number] [address] [place] [address] Care Team Providers Care Reservation Clerk Name Role Phone Jaden Crabtree DO Primary Care Provider [phone] Reason for Visit * Reason Onset Date Comments Med Refill 04/06/2025 Encounter Details Date Type Department Care Team (Late st Contact Info) Description 04/06/2025 Refill [facility] [address] [place] [phone] Andrés Bowden MD [address] [place] [address], [facility] [address] [place] [address] Spinal stenosis of lumbar region [...] Description 07/26/2025 10:00 AM EDT [facility] Department of [address] [place] [address] Lyn Lawton MD [address] [place] [address] [address] [place] [address] documented as of this encounter Goals Goal [...] documented as of this encounter Care Teams Reservation Clerk Relationship Specialty Start Date End Date Jaden Crabtree DO [address] [place] [id number] PCP - General Family Medicine 01/17/21 documented as of this encounter
--- OUTSIDE RECORDS SUMMARY | 2025-05-29 12:04 | XMS_ITS | Encounter Summary ---
Author Organization [facility] tem Address [id number] [address] [place] [address] Care Team Providers Care Manager Psychology Name Role Phone Jaden Crabtree DO Primary Care Provider [phone] Encounter Details Date Type Department Care Team (Late st Contact Info) Description 01/28/2021 Orders Only [facility] [address] [place] [phone] Za Omer CMA Social History Tobacco Use Types Packs/Day Years Used Date Smoking Tobacco: Every Day Smokeless Tobacco: Never Alcohol Use Standard Drinks/Week [...] have Coronavirus / COVID-19? No / Unsure 01/24/2021 1:58 PM EDT documented as of this encounter Plan of Treatment Upcoming Encounters Date Type Department Care Team (Late st Contact Info) Description 07/26/2025 10:00 AM EDT [facility] of [facility] [address] [facility] [address] [place] [phone] Lyn Lawton MD [address] [place] [address] [address] [place] [address] documented as of this encounter Visit Diagnoses Not on filedocumented in this encounter Additional Health Concerns Assessment Noted Time A Body Mass Index follow-up plan has been documented for the patient 01/18/2021 11:36 AM EDT documented as of this encounter Care Teams Manager Psychology Relationship Specialty Start Date End Date Jaden Crabtree DO [address] [place] [address] PCP - General Family Medicine 01/17/21 documented as of this encounter
--- OUTSIDE RECORDS SUMMARY | 2025-05-29 12:04 | XMS_ITS | Clinical Summary ---
Author Organization inTarvo tem Address [id number] [address] [place] [address] Care Team Providers Care Child & Adolescent Psychiatrist Name Role Phone Jaden Crabtree DO Primary Care Provider [phone] Allergies Active Allergy Reactions Criticality Noted Date Comments Celecoxib Hives,Rash High 06/04/2017 Other reaction(s): GI Upset, Unknown Clonazepam Itching Medium 06/04/2017 Erythromycin 01/17/2021 Other reaction(s): Unknown Erythromycin Base Hives,Shortness Of Breath High 03/06/2004 Levofloxacin Hives Medium 01/29/2010 Other reaction(s): Unknown Moxifloxacin Hives,Itching,Rash,S hor tness Of Breath High 07/20/2006 Pimavanserin Hives 08/23/2020 Medications multivitamin capsule Take 1 capsule by mouth in the morning. Active acetaminophen (TYLENOL) 325 mg tablet Take 2 tablets (650 mg total) by mouth every 6 (six) hours as needed for pain. Active acetaminophen-ca ffeine (EXCEDRIN TENSION HEADACHE) 500-65 mg tablet Take 2 tablets by mouth every 6 (six) hours as needed (Migraine). 90 tablet 1 Active Additional Information Patient not taking.Reported on 03/16/2025 betamethasone, augmented, (DIPROLENE) 0.05 % cream Apply 1 application topically daily. 30 g 1 Active Additional Information Patient not taking.Reported on 03/16/2025 ondansetron (ZOFRAN) 4 mg tablet Take 2 tablets (8 mg total) by mouth every 6 (six) hours as needed for nausea or vomiting. 20 tablet 1 Active Additional Information Patient not taking.Reported on 03/16/2025 acarbose (PRECOSE) 25 mg tablet Take 1 tablet (25 mg total) by mouth 3 (three) times a day. 90 tablet 1 1 Active Additional Information Patient not taking.Reported on 03/16/2025 atorvastatin (LIPITOR) 10 mg tablet Take 1 tablet (10 mg total) by mouth daily. 30 tablet 1 1 Active ezetimibe (ZETIA) 10 mg tablet Take 1 tablet (10 mg total) by mouth daily. 30 tablet 1 Active topiramate (TOPAMAX) 100 mg tablet Take 1 tablet (100 mg total) by mouth 2 (two) times a day. 60 tablet 1 1 Active docusate sodium (COLACE) 100 mg capsule Take 1 capsule (100 mg total) by mouth daily as needed. 1 Active montelukast (SINGULAIR) 10 mg tablet Take 1 tablet (10 mg total) by mouth in the morning. 3 Active DULoxetine (CYMBALTA) 60 mg capsule Take 1 capsule (60 mg total) by mouth nightly. 4 Active diclofenac (VOLTAREN) 75 mg EC tablet Take 1 tablet (75 mg total) by mouth in the morning and 1 tablet (75 mg total) before bedtime. 4 Active pregabalin (LYRICA) 300 mg capsule Take 1 capsule (300 mg total) by mouth in the morning and 1 capsule (300 mg total) before bedtime. 4 Active potassium citrate (UROCIT-K) 15 mEq tablet extended release Take 1 tablet (15 mEq total) by mouth in the morning and 1 tablet (15 mEq total) before bedtime. 4 Active tolterodine LA (DETROL LA) 4 mg 24 hr capsule Take 1 capsule (4 mg total) by mouth in the morning. Active fludrocortisone (FLORINEF) 0.1 mg tabletIndication s: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 ([facility]) 2 tabs daily as directed 180 tablet 3 4 Active zinc oxide 20 % ointment Apply 1 Application topically as needed. Active sulfamethoxazole -trimethoprim (BACTRIM DS) 800-160 mg per tablet Take 1 tablet by mouth in the morning and 1 tablet before bedtime. Taking Thursday, Thursday, Thursday. 4 Active carbidopa-levodo pa (SINEMET CR) 25-100 mg per CR tabletIndication s:Parkinson's disease (CMS-HCC) TAKE 1 TABLET BY MOUTH AT 2AM, 2 TABLETS AT 6AM AND 10AM, 1 TABLET AT 2PM, 6PM, AND 10PM. TAKE WITH SINEMET IR 240 tablet 11 4 Active SUMAtriptan (IMITREX) 50 mg tabletIndication s:Migraine without aura and without status migrainosus, not intractable Take 1 tablet (50 mg total) by mouth once as needed for migraine for up to 180 doses. May repeat in 2 hours if unresolved. Do not exceed 200 mg in 24 hours. 15 tablet 11 4 Active carbidopa-levodo pa (SINEMET) 25-100 mg per tabletIndication s:Parkinson's disease (CMS-HCC) TAKE 2 TABLETS BY MOUTH AT 6AM AND 10AM, 1 TAB AT 2PM AND 6PM. AVOID PROTEIN 1 HOUR BEFORE OR AFTER EACH DOSE. TAKE ALONG WITH SINEMET CR. 180 tablet 11 5 Active midodrine (PROAMATINE) 5 mg tabletIndication s:Orthostasis Check blood pressure at 8 am, 12 pm and 6 pm. If top number is 110 or lower take 3 tablets (15 mg). If top number 111-149 take 2 tablets (10 mg) if top number is 150 or higher DO NOT TAKE. 810 tablet 3 5 Active pyridostigmine (MESTINON) 60 mg tabletIndication s:Dysautonomia orthostatic hypotension syndrome Take half to 1 tab PO TID as directed 90 tablet 5 5 Active traMADoL (ULTRAM) 50 mg tabletIndication s:Spinal stenosis of lumbar region with neurogenic claudication Take 1 tablet (50 mg total) by mouth every 6 (six) hours as needed for pain. 120 tablet 5 5 Active Active Problems Problem Noted Date Diagnosed Date Open wound of left great toe 03/16/2025 Overview (03/16/2025): PVR with toe pressures Assessment & Plan (03/16/2025 11:16 AM EDT): PVR with toe pressure Encounter for abdominal aortic aneurysm (AAA) sc reening 01/28/2024 Assessment & Plan (03/16/2025 11:16 AM EDT): No abdominal aortic aneurysms on screening duplex ultrasound. Assessment & Plan (01/28/2024 9:40 AM EDT): AAA duplex US Critical limb ischemia of lorene th lower extremities with gangrene 01/28/2024 Overview (01/28/2024): Bilateral toe wounds nonhealing, no PVR or testing Assessment & Plan (03/17/2024 11:58 AM EDT): His blood flow is normal down to the ankle. He has some small vessel disease with mild to moderately reduced TBI Mostly on the left.Discussed with him that his wound should heal.He might need hyperbaric therapy to help accelerate the healing.Also recommended continue best medical therapy Assessment & Plan (01/28/2024 9:41 AM EDT): Bilateral toe wounds nonhealing, no PVR or testing Generalized weakness 11/20/2022 Shy-Drager syndrome 02/13/2021 Walking difficulty due to ankle and foot 021 Type 2 diabetes mellitus wit h circulatory disorder, without long-term current use of insulin 02/08/2021 Parkinson disease 02/03/2021 Parkinson's disease 02/03/2021 Falls frequently 08/29/2020 Near syncope 08/29/2020 Orthostasis 08/29/2020 Right foot drop 08/29/2020 Multifactorial gait disorder 08/29/2020 Osteoarthritis of right hip 05/03/2020 Tobacco use 04/24/2020 Overview (10/01/2021): Last Assessment & Plan: Assessment: 60 pack years Currently 1/2 pack day since 01/2020 Cessation with strategies encouraged. Megaloblastic anemia due to vitamin B12 deficien cy 12/30/2019 Open wound of left heel 11/08/2019 Dysphagia 04/13/2019 MGUS (monoclonal gammopathy of unknown significa nce) 09/15/2018 Spinal cord stimulator status 09/07/2018 Overview (10/01/2021): Last Assessment & Plan: Assessment: for LBP generator in right hip Aware to bring remote on DOS Complete tear of right rotator cuff 08/02/2018 Iron deficiency anemia secon jovany to inadequate dietary iron intake 06/16/2018 Multilevel spine pain 06/02/2018 Obesity, Class I, BMI 30-34.9 03/17/2018 CRPS (complex regional pain syndrome type I) Status post replacement of left shoulder joint 0 02/08/2018 Asthma 12/07/2017 Essential hypertension 12/07/2017 Overview (10/01/2021): Last Assessment & Plan: Assessment: Medication for Control. Date: BP: 04/24/2020 115/80 Stable. Hyperlipidemia 12/07/2017 Overview (10/01/2021): Last Assessment & Plan: Assessment: stable on medication Diabetes mellitus 12/07/2017 Overview (10/01/2021): Last Assessment & Plan: Assessment: stable on oral medication Hemoglobin A1C (%) Date Value 05/18/2018 5.9 06/17/2017 5.3 Arthritis of knee 04/27/2017 Chronic pain disorder 04/15/2017 Overview (10/01/2021): Last Assessment & Plan: Assessment: lower back pain s/p SCS 02/2018 Monitored by Pain Management ( 04/03/2020) COPD with chronic bronchitis 04/15/2017 Overview (10/01/2021): Last Assessment & Plan: Assessment: Managed with inhalers No supplemental oxygen use RA 04/24/20 1148 SpO2: 97% Stable. Postlaminectomy syndrome of lumbar region 2015 Hypertrophy of prostate with urinary obstruction and other lower urinary tract symptoms (LUTS) 08/12/2010 Microstomia 08/09/2010 Frequency of urination 03/26/2010 ED (erectile dysfunction) of organic origin 09/19 Malignant neoplasm of skin of lip 05/11/2007 Overview (10/01/2021): Last Assessment & Plan: Assessment: s/p removal Urinary urgency 07/31/2006 Rotator cuff syndrome of shoulder and allied dis orders 12/10/2004 Spinal stenosis of lumbar region 08/13/2004 Brachial neuritis or radiculitis 04/17/2004 Displacement of cervical intervertebral disc Displacement of thoracic int ervertebral disc without myelopathy 03/06/2004 Spinal stenosis of cervical region 03/06/2004 Encounters Date Type Department Care Team Description 04/26/2025 Orders Only [facility] - Neurophysiology [address] [place] [address] Lyn Lawton MD Chronic intractable headache, unspecified headache type (Primary Dx) 04/19/2025 Orders Only [facility] - Neurophysiology [address] [place] [address] Lyn Lawton MD Parkinson's disease without dyskinesia or fluctuating manifestations ([facility]) (Primary Dx); Dysphagia, unspecified type 04/13/2025 Telephone [facility] Department of [facility] [address] [place] [address] Zahra Cevallos Speech Therapy 04/12/2025 Orders Only [facility] [address] [place] [address] Mine Iraheta CMA Encounter for abdominal aortic aneurysm (AAA) screening; Open wound of left great toe, subsequent encounter; Critical limb ischemia of left lower extremity with gangrene ([facility]) 04/06/2025 Refill [facility] [address] [place] [address] Andrés Bowden MD Spinal stenosis of lumbar region with neurogenic claudication 04/04/2025 Refill [facility] [address] [place] [phone] Andrés Bowden MD Spinal stenosis of lumbar region with neurogenic claudication 03/31/2025 Refill [facility] [address] [place] [phone] Andrés Bowden MD Spinal stenosis of lumbar region with neurogenic claudication 03/31/2025 Orders Only [facility], [facility] Department of [address] [place] [address] Lyn Lawton MD Dysautonomia orthostatic hypotension syndrome (Primary Dx) 03/29/2025 9:50 AM EDT - 03/29/2025 11:59 PM EDT Hospital Encounter [facility] - Radiology [address] [place] [phone] Dysphagia, unspecified type; Globus sensation Discharge Disposition: Home 03/29/2025 9:47 AM EDT - 03/29/2025 9:49 AM EDT Hospital Encounter [facility] - CT Imaging [address] [place] [phone] Cerebellar dysmetria Discharge Disposition: Home 03/29/2025 Travel 03/16/2025 9:10 AM EDT Office Visit [facility] [address] [place] [phone] Tracey Marin MD Encounter for abdominal aortic aneurysm (AAA) screening (Primary Dx); Open wound of left great toe, subsequent encounter; Critical limb ischemia of left lower extremity with gangrene ([facility]) 03/15/2025 Travel 03/14/2025 3:00 PM EDT Office Visit [facility], A Department of [address] [place] [phone] Lyn Lawton MD Dysphagia, unspecified type (Primary Dx); Globus sensation; Dysautonomia orthostatic hypotension syndrome; Constipation, unspecified constipation type; Cerebellar dysmetria 03/12/2025 Travel 03/02/2025 Orders Only [facility] [address] [place] [phone] Tracey Marin MD from Last 3 Months Immunizations Immunization Administration Dates Next Due H1N1 Inj Preservative Free 08/24/2009 Hepatitis B 08/16/2002,01/27/2002 Influenza High Dose Preservative Free IM 019,08/12/2016 Influenza, Injectable, Quadrivalent 07/17/2020,0 07/07/2018 Influenza, Injectable, quadrivalent (PF) 017,07/23/2015 Influenza, Unspecified 07/15/2010 Pneumococcal Conjugate 13-Valent 11/15/2018 Pneumococcal Polysaccharide 08/13/1995 Tdap 11/15/2018,10/22/2015 Zoster Vaccine Recombinant 01/19/2019 Social History Tobacco Use Types Packs/Day Years Used Date Smoking Tobacco: Former Cigarettes Smokeless Tobacco: Never Tobacco Cessation:Counseling Given: Not Answered Alcohol Use Standard Drinks/Week Comments Not Currently [...] Sign Reading Time Taken Comments Blood Pressure 106/70 03/16/2025 9:27 AM EDT Pulse 73 03/16/2025 9:27 AM EDT Temperature 36.4 C (97.6 F) 03/16/2025 9:27 AM EDT Respiratory Rate 97 07/11/2021 2:43 PM EDT Oxygen Saturation 93% 03/16/2025 9:27 AM EDT Inhaled Oxygen Concentration - - Weight 106.6 kg (235 lb) 03/16/2025 9:27 AM EDT Height 177.8 cm (5' 10 ) 03/16/2025 9:27 AM EDT Body Mass Index 33.72 03/16/2025 9:27 AM EDT Plan of Treatment Upcoming Encounters Date Type Department Care Team (Late st Contact Info) Description 07/26/2025 10:00 AM EDT [facility] Department of [address] [place] [address] Lyn Lawton MD [address] [place] [address] [address] [place] [address] Health Maintenance Due Date Last Done Comments Diabetic Ophthalmology Exam 1958 Diabetic Foot Exam 1976 Zoster (Shingles) Vaccine (2 of 2) 03/16/20192018 Fall Risk Screening 2023 COVID-19 Vaccine (2023-2 5 season) 2024 10/15/2021, 01/09/2021, 12/13/2020 Influenza Vaccine 06/19/2025 11/21/2024, , 09/18/2022, Additional history exists Adult BMI Follow Up Plan 08/23/2025 08/23/2024 Depression Screening 08/23/2025 08/23/2024 Adult BMI Screening 03/16/2026 03/16/2025 Tobacco Screening 03/16/2026 03/16/2025 DTaP,Tdap and Td Vaccines (3 - Td or Tdap) 11/15/2028 11/15/2018, 10/22/2015 Abdominal Aortic Aneurysm (A AA) Screen Completed 01/28/2024, 12/01/2022, 11/26/2022 Goals Goal Patient Goal Type Associated Problems [...] towards goal: Participating in care and rehab Medical Devices Implanted Type Area Frozen Food Department Manager Device Identifier Shelf Expiration Date Model / Serial / Lot Spinal Stimulator Procedures Procedure Name Priority Date/Time Associated Diagnosis Comments FL SWALLOW MOTILITY FUNCTION Routine 03/29/2025 10:56 AM EDT Dysphagia, unspecified type Globus sensation CT BRAIN WO CONT Routine 03/29/2025 10:0 8 AM EDT Cerebellar dysmetria VASC AORTA/ILIAC DUPLEX COMPLETE Routine 03/02/2025 12:19 PM EDT ULTRASOUND, ABDOMINAL AORTA, REAL TIME WITH IMAGE DOCUMENTATION, SCREENING STUDY FOR ABDOM Routine 03/02/2025 12:17 PM EDT from Last 3 Months Results * Fluoroscopy swallow motility function (03/29/2025 10:56 AM EDT) Anatomical Region Laterality Modality Chest, Abdomen, Body Radio Fluor oscopy 03/29/2025 2:11 PM EDT Narrative 03/29/2025 2:13 PM EDT STUDY: Video fluoroscopic swallow study CLINICAL HISTORY: Oral pharyngeal dysphagia, difficulty swallowing COMPARISON: None. FINDINGS: Video fluoroscopic swallow study was performed in conjunction with members of speech pathology. Barium contrast materials of multiple consistencies were administered. Fluoroscopic reference air kerma was 3.3 mGy. Multiple video fluoroscopic images. Zero fluoroscopic spot films. 2.8 minutes fluoroscopy With thin barium there was penetration, aspiration with cough reflex. Repeat attempts with chin tuck maneuver did not result additional episodes of penetration or aspiration by spoon, cup or straw. Solid and semisolid barium consistencies were handled without additional episodes of penetration or aspiration. Correlate with dedicated speech pathology report for additional details and recommendations. IMPRESSION: 1. Penetration, aspiration and cough associated with thin barium that is corrected with chin tuck maneuver. Finalized by Papito Norris DO on 03/29/2025 2:13 PM Procedure Note Papito Norris, - 03/29/2025 STUDY: Video fluoroscopic swallow study CLINICAL HISTORY: Oral pharyngeal dysphagia, difficulty swallowing COMPARISON: None. FINDINGS: Video fluoroscopic swallow study was performed in conjunction with membersof speech pathology. Barium contrast materials of multiple consistencieswere administered. Fluoroscopic reference air kerma was 3.3 mGy. Multiple video fluoroscopic images. Zero fluoroscopic spot films. 2.8 minutes fluoroscopy With thin barium there was penetration, aspiration with cough reflex. Repeat attempts with chin tuck maneuver did not result additional episodesof penetration or aspiration by spoon, cup or straw. Solid and semisolid barium consistencies were handled without additionalepisodes of penetration or aspiration. Correlate with dedicated speech pathology report for additional detailsand recommendations. IMPRESSION: 1. Penetration, aspiration and cough associated with thin barium that iscorrected with chin tuck maneuver. Finalized by Papito Norris DO on 03/29/2025 2:13 PM Lyn Lawton MD IMG FLUOROSCOPY ORDERABLES Final Result * CT brain without contrast (03/29/2025 10:08 AM EDT) Anatomical Region Laterality Modality Neuro, Head, Head and Neck, Neuro Covera N/A Computed Tomography 04/02/2025 5:15 PM EDT Narrative 04/02/2025 5:17 PM EDT HISTORY: A 64-year-old male with a history of the right arm weakness. Cerebellar dysmetria. EXAM/TECHNIQUE: Multidetector spiral CT scan of brain is performed. Multiplanar reconstruction images are reformatted. All CT scans at this facility use dose modulation, iterative reconstruction, and/or weight based dosing when appropriate to reduce radiation dose to as low as reasonably achievable. COMPARISON: Comparison is made with prior CT scan of brain of 04/12/2018. FINDINGS: The ventricular system is normal in size and configuration. There is normal differentiation of knox and white matters. There is no evidence of intracranial hemorrhage or acute pathology. The cerebellum and brainstem are unremarkable. No mass effect, midline shift of the structures or extra-axial fluid collections are noted. The calvarium is intact. The visualized paranasal sinuses and mastoid air cells are clear. IMPRESSION: * No evidence of intracranial hemorrhage or acute pathology. Finalized by Henry Samano MD on 04/02/2025 5:17 PM Procedure Note Henry Samano MD - 04/02/2025 HISTORY: A 64-year-old male with a history of the right arm weakness.Cerebellar dysmetria. EXAM/TECHNIQUE: Multidetector spiral CT scan of brain is performed.Multiplanar reconstruction images are reformatted. All CT scans at this facility use dose modulation, iterativereconstruction, and/or weight based dosing when appropriate to reduceradiation dose to as low as reasonably achievable. COMPARISON: Comparison is made with prior CT scan of brain of04/12/2018. FINDINGS: The ventricular system is normal in size and configuration.There is normal differentiation of knox and white matters. There is no evidence of intracranial hemorrhage or acute pathology. The cerebellum and brainstem are unremarkable. No mass effect, midline shift of the structures or extra-axial fluidcollections are noted. The calvarium is intact. The visualized paranasal sinuses and mastoid air cells are clear. IMPRESSION: * No evidence of intracranial hemorrhage or acute pathology. Finalized by Henry Samano MD on 04/02/2025 5:17 PM Lyn Lawton MD IMG CT ORDERABLES Final Re sult * Vas aorta/iliac duplex complete (03/02/2025 12:19 PM EDT) Anatomical Region Laterality Modality Vascular N/A Ultrasound us Tracey Marin MD CV VASCULAR ORDERABLES Final Result * ULTRASOUND, ABDOMINAL AORTA, REAL TIME WITH IMAGE DOCUMENTATION, SCREENING STUDY FOR ABDOM (03/02/2025 12:17 PM EDT) us Tracey Marin MD [place] [facility] Final Result from Last 3 Months Insurance MEDIC[place] Advance Directives * Full Code (Latest Code Status on File) Date Activated Date Inactivated Comments 02/07/2021 1:34 PM 02/19/2021 4:48 PM * Full Code Date Activated Date Inactivated Comments 02/03/2021 2:46 PM 02/07/2021 1:08 PM Care Teams Child & Adolescent Psychiatrist Relationship Specialty Start Date End Date Jaden Crabtree DO [address] [place] [id number] PCP - General Family Medicine 01/17/21
--- OUTSIDE RECORDS SUMMARY | 2025-05-29 12:04 | XMS_ITS | Clinical Summary ---
Author Organization [facility] Address [address] [place] [address] Phone Care Team Providers Care Obstetrical Tech Name Role Phone Leyda Jaden Dawson DO Primary Care Provider [phone] Social History Tobacco Use Types Packs/Day Years Used Date Smoking Tobacco: Never Assessed Sex and Gender Information Value Date Recorded Sex Assigned at Not on file Legal Sex Male 8:17 PM EST Gender Identity Not on file Sexual Orientation Not on file Last Filed Vital Signs Vital Sign Reading Time Taken Comments Blood Pressure 90/68 08/16/2021 2:23 PM EDT Pulse 72 08/16/2021 2:21 PM EDT Temperature - - Respiratory Rate - - Oxygen Saturation - - Inhaled Oxygen Concentration - - Weight 102 kg (224 lb) 08/16/2021 2:21 PM EDT Height 177.8 cm (5' 10 ) 08/16/2021 2:21 PM EDT Body Mass Index 32.14 08/16/2021 2:21 PM EDT Plan of Treatment Health Maintenance Due Date Last Done Comments CT Colonography 1958 Colonoscopy 1958 Colorectal Cancer Screening 1958 FIT-DNA (Cologuard) 1958 FIT 1958 Lipid Panel 1958 Sigmoidoscopy 1958 Yearly Adult Physical 1958 MMR Vaccines (1 of 1 - Stand carlyn series) 1959 Hepatitis C Screening 1976 DTaP/Tdap/Td Vaccines (1 - Tdap) 1980 PSA Prostate Cancer Screening 2008 Pneumococcal Vaccine (1 of 1 - PCV) 2008 Zoster Vaccines (1 of 2) 2008 COVID-19 Vaccine (2023-2 5 season) 2024 Influenza Vaccine (#1) 2025 RSV High Risk: (Elderly (60+ ) or Population) (1 - 1-dose 75+ series) 2033 HIB Vaccines Aged Out No longer eligi ble based on patient's age to complete this topic HPV Vaccines Aged Out No longer eligi ble based on patient's age to complete this topic Hepatitis A Vaccines Aged Out No long er eligible based on patient's age to complete this topic Hepatitis B Vaccines Aged Out No long er eligible based on patient's age to complete this topic IPV Vaccines Aged Out No longer eligi ble based on patient's age to complete this topic Meningococcal Vaccine Aged Out No lisy cassidy eligible based on patient's age to complete this topic Rotavirus Vaccines Aged Out No longer eligible based on patient's age to complete this topic Care Teams Obstetrical Tech Relationship Specialty Start Date End Date Jaden Crabtree DO PCP - General 08/16/21
--- OUTSIDE RECORDS SUMMARY | 2025-05-29 12:04 | XMS_ITS | Encounter Summary ---
Author Organization [facility] tem Address [id number] [address] [place] [address] Care Team Providers Care Employment Coach Name Role Phone Jaden Crabtree DO Primary Care Provider [phone] Reason for Visit * Reason Onset Date Comments Speech Therapy 04/13/2025 Encounter Details Date Type Department Care Team (Late st Contact Info) Description 04/13/2025 [facility]phone [facility] Department of [facility] [address] [facility] [address] [place] [address] Zahra Cevallos Speech Therapy Social History Tobacco Use Types Packs/Day Years [...] encounter Miscellaneous Notes * Telephone Encounter - Zahra Cevallos - 04/13/2025 4:27 PM EDT Cytologist received a call from patients about getting her a Speech Therapy referral from Dr. Lawton.Caller stated it was reccommended after patients swallow test. Caller stated she would like for speech therapy to be done at home. Callback number is [phone] Please advise, thank you documented in this encounter Plan of Treatment Upcoming Encounters Date Type Department Care Team (Late st Contact Info) Description 07/26/2025 10:00 AM EDT Office Visit [facility] Neurology, A Department of [address], [address] [place] [phone] Lyn Lawton MD [address] [place] [address] 101, [address], [address] [place] [address] documented as of this encounter Goals Goal [...] documented as of this encounter Care Teams Employment Coach Relationship Specialty Start Date End Date Jaden Crabtree DO [address] [place] [address] PCP - General Family Medicine 01/17/21 documented as of this encounter
--- OUTSIDE RECORDS SUMMARY | 2025-05-29 12:04 | XMS_ITS | Encounter Summary ---
Author Organization [facility] Address [address] [place] [address] Care Team Providers Care Music Leader Name Role Phone Unavailable Primary Care Provider Unavailabl e Encounter Details Date Type Department Care Team (Late st Contact Info) Description 03/10/2024 Clinisync Result Encounter [facility] External Department Unsolicited Tracey Marin MD [address], [address] [address] Social History Tobacco Use Types Packs/Day Years [...] Date/Time Associated Diagnosis Comments SEGMENTAL BLOOD PRESSURE 03/10/2024 1:01 PM EDT documented in this encounter Results * SEGMENTAL BLOOD PRESSURE (03/10/2024 1:01 PM EDT) Anatomical Region Laterality Modality Radiographic Jennifer ging 03/10/2024 1:01 PM EDT Narrative 03/10/2024 1:04 PM EDT The [address] [address] Vein Report Signed Patient: ALISIA CORREA MR#: [id number] : 1960 Acct:[id number] Age/Sex: 63 / M ADM Date: 03/10/24 Loc: VC Attending Dr: Tracey Marin M.D. Ordering Physician: Tracey Marin M.D. Date of Service: 03/10/24 Procedure(s): VC SEGMENTAL PRESSURES Accession Number(s): [id number] cc: ELLEN ARIAS ; Tracey Marin M.D. The [place] [id number] Patient Name: ALISIA CORREA MRN: [facility]:[id number] date: 1960 Sex: M Assigned Patient Location: Current Patient Location: Accession/Order Number: [id number] Exam Date: 03/10/2024 10:11 Report Date: 03/10/2024 13:01 At the request of: TRACEY MARIN Procedure: VC SEGMENTAL PRESSURES EXAM: BILATERAL LOWER EXTREMITY ARTERIAL SEGMENTAL PRESSURES HISTORY: I79.3 PVD Peripheral vascular disease Indication: Limb ischemia, gangrene COMPARISON: None FINDINGS: Segmental pressures presented as follows (right, left) in mmHg. Brachial: 111, 127. Upper thigh: 157, not obtained. Lower thigh: 163, 177. Calf: 150, 150. DPA: 123, 147. RURAL MAIL CARRIER: 138, 147. 1st Toe: 77, 59 ANUJA: 1.09, 1.16 TBI: 0.61, 0.46 The ABIs are normal The TBI's are acceptable PVR waveforms: Right leg: Thigh: Normal Above knee: Delayed systolic upstroke Below knee: Delayed systolic upstroke Right ankle: Delayed systolic upstroke with blunting Left leg: Thigh: Unable to be obtained Above knee: Delayed systolic upstroke with wanting Below knee: Normal Right ankle: Delayed systolic upstroke with blunting VEIN/VC SEGMENTAL PRESSURES IMPRESSION: ABIs are within normal limits PVR waveforms suggest mild to moderate peripheral arterial disease TBI's consistent with moderate right and severe left arterial disease Electronically authenticated by: LIZETH MCDONOUGH Date: 03/10/2024 13:01 Dictated By: Lizeth Mcdonough M.D. Signed By: 03/10/24 1304 DD/ 1301 TD/TT: Rn Medical Surgical: Procedure Note Radiology, Radiologist, - 03/10/2024 [place] [address] Vein Report Signed Patient: ALISIA CORREA LMR#: [id number] : 1960cct:[id number] Age/Sex: 63 / MADM Date: 03/10/24 Loc: VC Attending Dr: Tracey Marin M.D. Ordering Physician: Tracey Marin M.D. Date of Service: 03/10/24 Procedure(s): VC SEGMENTAL PRESSURES Accession Number(s): [id number] cc: ELLEN ARIAS ; Tracey Marin M.D. [place] [id number] Patient Name: ALISIA CORREA MRN: [facility]:[id number] date: 1960 Sex: M Assigned Patient Location: Current Patient Location: VC Accession/Order Number: [id number] Exam Date: 03/10/2024 10:11 Report Date: 03/10/2024 13:01 At the request of: TRACEY MARIN Procedure: VC SEGMENTAL PRESSURES EXAM: BILATERAL LOWER EXTREMITY ARTERIAL SEGMENTAL PRESSURES HISTORY: I79.3 PVD Peripheral vascular disease Indication: Limb ischemia, gangrene COMPARISON: None FINDINGS: Segmental pressures presented as follows (right, left) in mmHg. Brachial: 111, 127. Upper thigh: 157, not obtained. Lower thigh: 163, 177. Calf: 150, 150. DPA: 123, 147. RURAL MAIL CARRIER: 138, 147. 1st Toe: 77, 59 ANUJA: 1.09, 1.16 TBI: 0.61, 0.46 The ABIs are normal The TBI's are acceptable PVR waveforms: Right leg: Thigh: Normal Above knee: Delayed systolic upstroke Below knee: Delayed systolic upstroke Right ankle: Delayed systolic upstroke with blunting Left leg: Thigh: Unable to be obtained Above knee: Delayed systolic upstroke with wanting Below knee: Normal Right ankle: Delayed systolic upstroke with blunting VEIN/VC SEGMENTAL PRESSURES IMPRESSION: ABIs are within normal limits PVR waveforms suggest mild to moderate peripheral arterial disease TBI's consistent with moderate right and severe left arterial disease Electronically authenticated by: LIZETH MCDONOUGH Date: 03/10/2024 13:01 Dictated By: Lizeth Mcdonough M.D. Signed By:03/10/24 1304 DD/ 1301 TD/TT: Rn Medical Surgical: Tracey Marin MD IMG XR PROCEDURES Final Resu lt documented in this encounter Visit Diagnoses Not on filedocumented in this encounter
--- OUTSIDE RECORDS SUMMARY | 2025-05-29 12:04 | XMS_ITS | Encounter Summary ---
Author Organization [facility] Address [id number] [address] [place] [address] Care Team Providers Care Pantograph I Engraver Name Role Phone Jaden Crabtree DO Primary Care Provider [phone] Reason for Visit * Reason Comments Med Refill Encounter Details Date Type Department Care Team (Late st Contact Info) Description 09/02/2023 Refill [facility] Neurology [address] [place] [phone] Andrés Bowden MD [address] [place] [address] 101, [address], [address] [place], [place] [id number] Orthostasis Social History Tobacco Use Types Packs/Day Years [...] got money to buy more. Never True 07/02/2023 Within the past 12 months th e food we bought just didn't last and we didn't have money to get more. Never True 07/02/2023 Purpose - Life Answer Date Recorded Purpose and direction in life Unknown Sex and Gender Information Value Date Recorded Sex Assigned at Not on file Legal Sex Male 10:25 AM EST Gender Identity Not on file Sexual Orientation Not on file documented as of this encounter Miscellaneous Notes * Telephone Encounter - Andrés Bowden MD - 09/02/2023 9:04 AM EST Already signed by Rosalba - thanks!! documented in this encounter Plan of Treatment Upcoming Encounters Date Type Department Care Team (Late st Contact Info) Description 07/26/2025 10:00 AM EDT Office Visit [facility] Neurology, A Department of [address], [address], [address] [place] [phone] Lyn Lawton MD [address] [place] [address] 101, [address], [address] [place] [address] documented as of this encounter Goals Goal [...] as of this encounter Visit Diagnoses Diagnosis Orthostasis Orthostatic hypotension documented in this encounter Additional Health Concerns Assessment Noted Time PHQ-9 Depression Total Score: 8 08/11/20 22 9:25 AM EDT A Body Mass Index follow-up plan has been documented for the patient 08/25/2022 6:32 AM EST documented as of this encounter Care Teams Pantograph I Engraver Relationship Specialty Start Date End Date Jaden Crabtree DO [address] [place] [address] PCP - General Family Medicine 01/17/21 documented as of this encounter
--- OUTSIDE RECORDS SUMMARY | 2025-05-29 12:04 | XMS_ITS | Encounter Summary ---
Author Organization [facility] Address [address] [place] [address] Phone Care Team Providers Care Button Grader Name Role Phone Jaden Crabtree DO Primary Care Provider [phone] Jaden Crabtree DO Unavailable Encounter Details Date Type Department Care Team (Late st Contact Info) Description 08/21/2023 Patient Risk Score AC Care Management [address] [place] [address] Social History Tobacco Use Types [...] on filedocumented in this encounter Care Teams Button Grader Relationship Specialty Start Date End Date Jaden Crabtree DO PCP - General 08/16/21 Jaden Crabtree DO [address] [place] [address] PCP - MMO Medicare Advantage PCP 02/16/23 09/17/23 documented as of this encounter
--- OUTSIDE RECORDS SUMMARY | 2025-05-29 12:04 | XMS_ITS | Encounter Summary ---
Author Organization [facility] Address [address] [place] [address] Phone Care Team Providers Care Oil Refinery Process Technician Name Role Phone Jaden Crabtree DO Primary Care Provider [phone] Encounter Details Date Type Department Care Team (Late st Contact Info) Description 10/21/2023 Patient Risk Score ACO Care Management [address] [facility] [address] [place] [address] Social History Tobacco Use Types [...] on filedocumented in this encounter Care Teams Oil Refinery Process Technician Relationship Specialty Start Date End Date Jaden Crabtree DO PCP - General 08/16/21 documented as of this encounter
--- OUTSIDE RECORDS SUMMARY | 2025-05-29 12:04 | XMS_ITS | Encounter Summary ---
Author Organization [facility] Address [id number] [address] [place] [address] Care Team Providers Care Manager Human Capital Name Role Phone Jaden Crabtree DO Primary Care Provider [phone] Encounter Details Date Type Department Care Team (Late st Contact Info) Description 03/02/2025 Orders Only [facility] [address] [facility] [address] [place] [address] Tracey Marin MD [address], [facility] [address] [place] [address] Social History Tobacco Use Types Packs/Day Years Used Date Smoking Tobacco: Former Cigarettes Smokeless Tobacco: Never Comments:8 cigs per [...] got money to buy more. Never True 08/23/2024 Within the past 12 months th e food we bought just didn't last and we didn't have money to get more. Never True 08/23/2024 Purpose - Life Answer Date Recorded Purpose [...] Office Visit [facility], A Department of [address], [address], [address] [place] [phone] Lyn Lawton MD [address] [place] [address] 101, [address], [address] [place] [address] documented as of this encounter Goals Goal [...] Name Priority Date/Time Associated Diagnosis Comments VASC AORTA/ILIAC DUPLEX COMPLETE Routine 03/02/2025 12:19 PM EDT ULTRASOUND, ABDOMINAL AORTA, REAL TIME WITH IMAGE DOCUMENTATION, SCREENING STUDY FOR ABDOM Routine 03/02/2025 12:17 PM EDT documented in this encounter Results * Vas aorta/iliac duplex complete (03/02/2025 12:19 PM EDT) Anatomical Region Laterality Modality Vascular N/A Ultrasound us Tracey Marin MD CV VASCULAR ORDERABLES Final Result * ULTRASOUND, ABDOMINAL AORTA, REAL TIME WITH IMAGE DOCUMENTATION, SCREENING STUDY FOR ABDOM (03/02/2025 12:17 PM EDT) us Tracey Marin MD [place] [facility] Final Result documented in this encounter Visit Diagnoses Not on filedocumented in this encounter Additional Health Concerns Assessment Noted Time PHQ-9 Depression Total Score: 21 024 11:29 AM EST A Body Mass Index follow-up plan has been documented for the patient 10/07/2024 3:14 PM EST documented as of this encounter Care Teams Manager Human Capital Relationship Specialty Start Date End Date Jaden Crabtere DO [address] [place] [address] PCP - General Family Medicine 01/17/21 documented as of this encounter
--- OUTSIDE RECORDS SUMMARY | 2025-05-29 12:05 | XMS_ITS | Clinical Summary ---
Author Organization [facility] Address [address] [facility], [address] [place] [address] Care Team Providers Care Photo Tech Name Role Phone Jaden Crabtree DO Primary Care Provider [phone] Allergies Active Allergy Reactions Criticality Noted Date Comments Moxifloxacin Hives,Shortness Of Breath High 01/24/20 22 Celecoxib Hives Medium 01/23/2022 Erythromycin Itching,Nausea And Vomiting Low 2021 Clonazepam Shortness Of Breath High 01/23/2022 Levofloxacin Hives,Shortness Of Breath High 01/24/20 22 Medications [place]-3 Fatty Acids (FISH OIL) 1200 MG CAPS Take by mouth daily Active Multiple Vitamin (MULTIVITAMIN PO) Take by mouth daily Active tolterodine (DETROL LA) 4 MG extended release capsule Take 4 mg by mouth daily Active budesonide-formot naomi (SYMBICORT) 160-4.5 MCG/ACT AERO Inhale 2 puffs into the lungs 2 times daily Active acarbose (PRECOSE) 25 MG tablet Take 25 mg by mouth 3 times daily (with meals) Active albuterol sulfate HFA 108 (90 Base) MCG/ACT inhaler Inhale 1 puff into the lungs as needed for Wheezing Active atorvastatin (LIPITOR) 10 MG tablet Take 10 mg by mouth nightly Active betamethasone dipropionate 0.05 % cream Apply topically 2 times daily as needed Apply topically 2 times daily. Active topiramate (TOPAMAX) 100 MG tablet Take 100 mg by mouth daily Active DULoxetine (CYMBALTA) 60 MG extended release capsule Take 60 mg by mouth nightly Active ezetimibe (ZETIA) 10 MG tablet Take 10 mg by mouth nightly Active pregabalin (LYRICA) 300 MG capsule Take 300 mg by mouth 2 times daily. Active lidocaine (LIDODERM) 5 % Place 1 patch onto the skin daily as needed for Pain 12 hours on, 12 hours off. Active linaclotide (LINZESS) 145 MCG capsule Take 145 mcg by mouth as needed Active metFORMIN (GLUCOPHAGE) 500 MG tablet Take 500 mg by mouth 2 times daily (with meals) Active midodrine (PROAMATINE) 5 MG tablet Take 5 mg by mouth 2 times daily Active pantoprazole (PROTONIX) 40 MG tablet Take 40 mg by mouth daily Active ondansetron (ZOFRAN) 4 MG tablet Take 4 mg by mouth as needed for Nausea or Vomiting Active Potassium Citrate ER 15 MEQ (1620 MG) TBCR Take by mouth 3 times daily Active QUEtiapine (SEROQUEL) 25 MG tablet Take 25 mg by mouth nightly Active sucralfate (CARAFATE) 1 GM tablet Take 1 g by mouth as needed Active SUMAtriptan (IMITREX) 50 MG tablet Take 50 mg by mouth once as needed for Migraine Active tamsulosin (FLOMAX) 0.4 MG capsule Take by mouth nightly 2 tab Active valACYclovir (VALTREX) 500 MG tablet Take 500 mg by mouth as needed Active carbidopa-levodop a (SINEMET CR) 25-100 MG per extended release tablet 6 times daily Take 1 tab at 2am Take 2 tab at 6am and 10am Take 1 tab 2pm, 6pm, 10pm 1 Active carbidopa-levodop a (SINEMET) 25-100 MG per tablet 5 times daily Take 2 tab at 6am, 10am Take 1 tab at 2pm, 6pm. 10pm 1 Active diclofenac (VOLTAREN) 75 MG EC tablet 2 times daily 2 Active SANTYL 250 UNIT/GM ointment daily as needed 2 Active Urea 40 % LOTN Apply topically 2 times daily as needed Active mupirocin (BACTROBAN) 2 % nasal ointment by Nasal route 2 times daily Take by Nasal route 2 times daily. 2 Active Active Problems Problem Noted Date Diagnosed Date Idiopathic hypotension 02/11/2022 Lumbar stenosis with neurogenic claudication Family History Medical History Relation Name Comments Cancer Brother brain Dementia Father High Blood Pressure Father Emphysema Maternal Grandfather Kidney Disease Maternal Grandfather Dementia Mother Diabetes Mother Heart Disease Mother CHF High Blood Pressure Mother Cancer Paternal Grandfather lung Diabetes Paternal Grandmother High Blood Pressure Paternal Grandmother Stroke Neg Hx Relation Name Status Comments Brother Father Alive Maternal Grandfather Mother Paternal Grandfather Paternal Grandmother Social History Tobacco Use Types Packs/Day Years Used Date Smoking Tobacco: Every Day Cigarettes 0.5 45 Smokeless Tobacco: Never Alcohol Use Standard Drinks/Week Comments Never 0 (1 standard drink = 0.6 oz pur e alcohol) Sex and Gender Information Value Date Recorded Sex Assigned at Not on file Legal Sex Male 4:45 PM EST Gender Identity Not on file Sexual Orientation Not on file Last Filed Vital Signs Vital Sign Reading Time Taken Comments Blood Pressure 105/55 02/18/2022 9:29 AM EDT Pulse 75 02/18/2022 8:30 AM EDT Temperature 36.6 C (97.9 F) 02/18/2022 8:30 AM EDT Respiratory Rate 18 02/18/2022 8:30 AM EDT Oxygen Saturation 97% 02/18/2022 8:30 AM EDT Inhaled Oxygen Concentration - - Weight 108.9 kg (240 lb) 02/09/2022 5:15 AM EDT Height 177.8 cm (5' 10 ) 02/07/2022 9:09 AM EDT Body Mass Index 34.44 02/07/2022 9:09 AM EDT Plan of Treatment Not on file Medical Devices Implanted Type Area Rail Project Engineer Device Identifier Shelf Expiration Date Model / Serial / Lot Screw Spinal Streamline 7.5x55mm - [id number] Implanted:Qty: 1 on 02/07/2022 by Frank Loza MD at [facility] Spine N/A: Spine Lumbar [employer] [id number] / / Set Scr Spnl Ti Streamline - [id number] Implanted:Qty: 9 on 02/07/2022 by Frank Loza MD at [facility] N/A: Spine Lumbar [employer] [id number] / / Screw Spnl L45mm Dia7.5mm Thorlum Ti Ally Polyax Streamline - [id number] Implanted:Qty: 2 on 02/07/2022 by Frank Loza MD at [facility] N/A: Spine Lumbar [employer] [id number] / / Screw Spnl L50mm Dia7.5mm Thorlum Ti Ally Polyax Streamline - [id number] Implanted:Qty: 6 on 02/07/2022 by Frank Loza MD at [facility] N/A: Spine Lumbar [employer] [id number] / / Ta Spnl L120mm [id number] Thorlum Prebent Streamline - [id number] Implanted:Qty: 1 on 02/07/2022 by Frank Loza MD at [facility] N/A: Spine Lumbar [employer] [id number] / / Ta Spnl L100mm [id number] Thorlum Prebent Streamline - [id number] Implanted:Qty: 1 on 02/07/2022 by Frank Loza MD at [facility] N/A: Spine Lumbar [employer] [id number] / / Additional Health Concerns Infection Onset Date 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
--- OUTSIDE RECORDS SUMMARY | 2025-05-29 12:05 | XMS_ITS | Encounter Summary ---
Author Organization [facility] tem Address [id number] [address] [place] [address] Care Team Providers Care Debarker Operator Name Role Phone Jaden Crabtree DO Primary Care Provider [phone] Reason for Visit * Reason Onset Date Comments Med Refill 05/23/2022 Encounter Details Date Type Department Care Team (Late st Contact Info) Description 05/23/2022 Telephone [facility] Neurology [address] [place] [phone] Peace Romo Med Refill Social History Tobacco Use Types [...] encounter Miscellaneous Notes * Telephone Encounter - Peace Romo - 05/23/2022 11:32 AM EDT PLEASE NOTE 05/21/22 TELE ENCOUNTER FOR SINEMET CR MED REFILL REQUEST FROM SAME PHARMACY Received call today 05/23/22 11:26 [facility] for Sinemet ER. She said that they have script for the regular 25-100 mg, but they need the ER and do not know the dosage for this. Last office visit with Reena Cervantes 09/26/21. Please send med refill script to [facility] in [place] located at: [address] [place] [address]. Their callback# if needed: [phone]. documented in this encounter Plan of Treatment Upcoming Encounters Date Type Department Care Team ([facility] st Contact Info) Description 07/26/2025 10:00 AM EDT Office Visit [facility] Neurology, A Department of [address], [address] [place] [address] [place] [address] [place] [address] 101, [address], [address] [place], [place] [phone] documented as of this encounter Goals Goal [...] documented as of this encounter Care Teams Debarker Operator Relationship Specialty Start Date End Date Jaden Crabtree DO [address] [place] [address] PCP - General Family Medicine 01/17/21 documented as of this encounter
--- OUTSIDE RECORDS SUMMARY | 2025-05-29 12:05 | XMS_ITS | Encounter Summary ---
Author Organization [facility] tem Address [id number] [address] [place] [address] Care Team Providers Care Farmworker Fryer Farm Name Role Phone Jaden Crabtree DO Primary Care Provider [phone] Encounter Details Date Type Department Care Team (Late st Contact Info) Description 06/27/2022 Telephone [facility] [address] [place] [phone] Yordan Zimmer, MARTI Social History Tobacco Use Types Packs/Day Years [...] have Coronavirus / COVID-19? No / Unsure 06/26/2022 10:07 AM EDT documented as of this encounter Plan of Treatment Upcoming Encounters Date Type Department Care Team (Late st Contact Info) Description 07/26/2025 10:00 AM EDT Office Visit [facility], A Department of [facility] [address] [facility] [address] [place] [phone] Lyn Lawton MD [address] [place] [address] 101, [address], [address] [place] [address] documented as of this encounter Goals Goal [...] documented as of this encounter Care Teams Farmworker Fryer Farm Relationship Specialty Start Date End Date Jaden Crabtree DO [address] [place] [address] PCP - General Family Medicine 01/17/21 documented as of this encounter
[2025-05-29 12:36] LABS: Hematocrit 37.5 % (42.0-54.0); Hemoglobin 11.5 g/dL (14.0-18.0); Immature Granulocytes Abs Auto 0.02 10^3/uL (0.00-0.03); Immature Granulocytes Pct Auto 0.3 % (0.0-0.5); Lymphocytes Absolute Auto 1.6 10^3/uL (1.2-3.8); Mean Corpuscular HGB Conc 30.7 g/dL (29.9-35.2); Mean Corpuscular Hemoglobin 27.4 pg (25.9-34.0); Mean Corpuscular Volume 89.3 fL (80.0-94.0); Platelet Count 298 10^3/uL (150-450); Red Blood Count 4.20 10^6/uL (4.70-6.10); White Blood Count 6.8 10^3/uL (4.0-11.0)
[2025-05-29 12:50] LABS: Anion Gap 11.9; Blood Urea Nitrogen 18.0 mg/dL (7.0-18.0); Calcium 9.4 mg/dL (8.5-10.1); Carbon Dioxide 26.8 mmol/L (21.0-32.0); Chloride 105 mmol/L (98-107); Estimated GFR (African America >60 (>=60 mL/min/1.73m^2); Estimated GFR (Non-African Ame >60 (>=60 mL/min/1.73m^2); Glucose 94 mg/dL (74-106); Potassium 3.7 mmol/L (3.5-5.1); Sodium 140 mmol/L (136-145)
== END 2025-05-29 12:02 | disposition home or self-care (01) ==
LOC: LAB 12:02
PROVIDERS: PCP Family Medicine; Visit Provider Internal Medicine Cardiovascular Disease
DX: I45.5 Other specified heart block (principal)
CPT/HCPCS: 36415; 80048; 85025

== ENCOUNTER 2025-06-02 10:31 | Emergency (ER) | payer MEDICARE, OTHER, SELFPAY ==
--- OUTSIDE RECORDS SUMMARY | 2025-06-02 10:40 | XMS_ITS | Encounter Summary ---
Author Organization [facility] Address [address] [place] [address] Phone Care Team Providers Care Bioprocess Engineer Name Role Phone Jaden Crabtree DO Primary Care Provider [phone] Jaden Crabtree DO Unavailable Encounter Details Date Type Department Care Team (Late st Contact Info) Description 05/21/2023 Patient Risk Score AC Care Management [address] [place] [address] Social History Tobacco Use Types [...] on filedocumented in this encounter Care Teams Bioprocess Engineer Relationship Specialty Start Date End Date Jaden Crabtree DO PCP - General 08/16/21 Jaden Crabtree DO [address] [place] [address] PCP - MMO Medicare Advantage PCP 02/16/23 09/17/23 documented as of this encounter
--- OUTSIDE RECORDS SUMMARY | 2025-06-02 10:40 | XMS_ITS | Encounter Summary ---
Author Organization [facility] Address [address] [place] [address] Phone Care Team Providers Care Delivery Table Operator Name Role Phone Jaden Crabtree DO Primary Care Provider [phone] Jaden Crabtree DO Unavailable Encounter Details Date Type Department Care Team (Late st Contact Info) Description 07/21/2023 Patient Risk Score AC Care Management [address] [place] [address] Social History Tobacco Use Types [...] on filedocumented in this encounter Care Teams Delivery Table Operator Relationship Specialty Start Date End Date Jaden Crabtree DO PCP - General 08/16/21 Jaden Crabtree DO [address] [place] [address] PCP - MMO Medicare Advantage PCP 02/16/23 09/17/23 documented as of this encounter
--- OUTSIDE RECORDS SUMMARY | 2025-06-02 10:40 | XMS_ITS | Encounter Summary ---
Author Organization [facility] Address [address] [place] [address] Phone Care Team Providers Care Prorate Clerk Name Role Phone Jaden Crabtree DO Primary Care Provider [phone] Jaden Crabtree DO Unavailable Encounter Details Date Type Department Care Team (Late st Contact Info) Description 06/21/2023 Patient Risk Score AC Care Management [address] [place] [address] Social History Tobacco Use Types [...] on filedocumented in this encounter Care Teams Prorate Clerk Relationship Specialty Start Date End Date Jaden Crabtree DO PCP - General 08/16/21 Jaden Crabtree DO [address] [place] [address] PCP - MMO Medicare Advantage PCP 02/16/23 09/17/23 documented as of this encounter
--- OUTSIDE RECORDS SUMMARY | 2025-06-02 10:40 | XMS_ITS | Encounter Summary ---
Author Organization [facility] Address [address] [place] [address] Phone Care Team Providers Care Hospital Pharmacy Director Name Role Phone Jaden Crabtree DO Primary Care Provider [phone] Jaden Crabtree DO Unavailable Encounter Details Date Type Department Care Team (Late st Contact Info) Description 04/20/2023 Patient Risk Score AC Care Management [address] [place] [address] Social History Tobacco Use Types [...] on filedocumented in this encounter Care Teams Hospital Pharmacy Director Relationship Specialty Start Date End Date Jaden Crabtree DO PCP - General 08/16/21 Jaden Crabtree DO [address] [place] [address] PCP - MMO Medicare Advantage PCP 02/16/23 09/17/23 documented as of this encounter
--- OUTSIDE RECORDS SUMMARY | 2025-06-02 10:40 | XMS_ITS | Encounter Summary ---
Author Organization [facility] Address [address] [place] [address] Phone Care Team Providers Care Finger Waver Name Role Phone Jaden Crabtree DO Primary Care Provider [phone] Jaden Crabtree DO Unavailable Encounter Details Date Type Department Care Team (Late st Contact Info) Description 07/26/2021 Orders Only [facility] [address] [place] [address] Conversion, Onbase Social History Tobacco Use Types [...] on filedocumented in this encounter Care Teams Finger Waver Relationship Specialty Start Date End Date Jaden Crabtree DO PCP - General 08/16/21 Jaden Crabtree DO [address] [place] [address] PCP - MMO Medicare Advantage PCP 02/16/23 09/17/23 documented as of this encounter
--- OUTSIDE RECORDS SUMMARY | 2025-06-02 10:40 | XMS_ITS | Encounter Summary ---
Author Organization [facility] Address [address] [place] [address] Phone Care Team Providers Care Pizza Baker Name Role Phone Jaden Crabtree DO Primary Care Provider Jaden Crabtree DO Unavailable Encounter Details Date Type Department Care Team (Late st Contact Info) Description 03/03/2022 Orders Only [facility] [address] [place] [address] Conversion, Onbase Social History Tobacco Use Types [...] on filedocumented in this encounter Care Teams Pizza Baker Relationship Specialty Start Date End Date Jaden Crabtree DO PCP - General 08/16/21 Jaden Crabtree DO [address] [place] [address] PCP - MMO Medicare Advantage PCP 02/16/23 09/17/23 documented as of this encounter
--- OUTSIDE RECORDS SUMMARY | 2025-06-02 10:40 | XMS_ITS | Clinical Summary ---
Author Organization [facility] Address [address] [place] [address] Care Team Providers Care Imaging Clerk Name Role Phone Jaden Crabtree Primary Care Provider [phone] Allergies Active Allergy Reactions Criticality Noted Date [...] Encounters Date Type Department Care Team Description 05/30/2025 Orders Only [facility] [address] [place] [facility] [address] ProviderJameson MD 04/25/2025 2:30 PM EDT Office Visit [facility] [address] [place] [facility] [address] Antonio Lim MD Sinus pause (Primary Dx) 04/25/2025 Orders Only [facility] [address] [place] [address] Alana Mark MA Sinus pause (Primary Dx) 04/07/2025 Telephone [facility] [address] [place] [address] Jessica Valencia MA 04/07/2025 Telephone [facility] [address] [place] [address] Nissa King MA 04/05/2025 10:00 AM EDT Telemedicine [facility] [address] [place] [address] Cherelle Botello CNP 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); Syncope and collapse 04/05/2025 Telephone [facility] [address] [place] [address] Kenyatta Roblero MA 03/15/2025 Orders Only [facility] [address] [place] [address] Marcelle Anderson MA from Last [...] Description 06/05/2025 1:00 PM EDT Hospital Encounter [facility] Heart [facility] [address] [place] [address] Antonio Lim MD [address] [place] [phone] Sinus pause 06/05/2025 1:00 PM EDT - 06/05/2025 2:00 PM EDT Surgery [facility] [address] [place] [phone] Antonio Lim MD [address] [place] [address] Implant PPM [[id number]] Health Maintenance Due Date Last Done Comments CT Colonography 1960 Diabetes: Hemoglobin A1C 1960 FIT-DNA 1960 FIT 1960 FOBT 1960 Medicare Annual Wellness (AWV) 1960 Sigmoidoscopy 1960 Diabetes: Retinopathy Screening 1968 Diabetes: Urine Protein Screening 1977 Zoster Vaccines (2 of 2) 03/16/2019 01/19/2019 COVID-19 Vaccine (4 - season) 2024 10/15/2021, 01/09/2021, 12/13/2020 Influenza Vaccine [...] on patient's age to complete this topic Procedures Procedure Name Priority Date/Time Associated Diagnosis Comments CARDIAC EVENT MONITOR Routine 05/10/2025 4:14 PM EDT from Last 3 Months Results * Cardiac event monitor (05/10/2025 4:14 PM EDT) Anatomical Region Laterality Modality Other Historical Provider [facility] CORTNEY DE OLIVEIRA Final Result from Last 3 Months Insurance [employer] Care Teams Imaging Clerk Relationship Specialty Start Date End Date Jaden Crabtree DO [address] [place] [address] PCP - General Family Medicine 04/25/25
--- OUTSIDE RECORDS SUMMARY | 2025-06-02 10:40 | XMS_ITS | Encounter Summary ---
Author Organization [facility] Address [address] [place] [address] Phone Care Team Providers Care Pipelayer Name Role Phone Jaden Crabtree DO Primary Care Provider [phone] Jaden Crabtree DO Unavailable Encounter Details Date Type Department Care Team (Late st Contact Info) Description 08/21/2023 Patient Risk Score AC Care Management [address] [place] [address] Social History Tobacco Use Types [...] on filedocumented in this encounter Care Teams Pipelayer Relationship Specialty Start Date End Date Jaden Crabtree DO PCP - General 08/16/21 Jaden Crabtree DO [address] [place] [address] PCP - MMO Medicare Advantage PCP 02/16/23 09/17/23 documented as of this encounter
--- OUTSIDE RECORDS SUMMARY | 2025-06-02 10:41 | XMS_ITS | Encounter Summary ---
Author Organization [facility] Address [address] [place] [address] Care Team Providers Care Word Processor Name Role Phone Jaden Crabtree DO Primary Care Provider [phone] Encounter Details Date Type Department Care Team (Late st Contact Info) Description 05/30/2025 Orders Only [facility] Heart at [facility] [address] [place] [phone] ProviderJameson MD [facility] [place] [address] Social History Tobacco Use Types Packs/Day Years [...] Description 06/05/2025 1:00 PM EDT Hospital Encounter [facility] Vascular Lab [address] [place] [phone] Antonio Lim MD [address] [facility] [place] [address] Sinus pause 06/05/2025 1:00 PM EDT - 06/05/2025 2:00 PM EDT Surgery [facility] V[facility] Lab [address] [place] [address] Antonio Lim MD [address] [place] [address] Implant PPM [[id number]] documented as of this encounter Procedures Procedure Name Priority Date/Time Associated Diagnosis Comments CARDIAC EVENT MONITOR Routine 05/10/2025 4:14 PM EDT documented in this encounter Results * Cardiac event monitor (05/10/2025 4:14 PM EDT) Anatomical Region Laterality Modality Other Historical Provider CV CARDIAC SERVICES CORTNEY DE OLIVEIRA Final Result documented in this encounter Visit Diagnoses Not on filedocumented in this encounter Care Teams Word Processor Relationship Specialty Start Date End Date Jaden Crabtree DO [address] [place] [address] PCP - General Family Medicine 04/25/25 documented as of this encounter
--- OUTSIDE RECORDS SUMMARY | 2025-06-02 10:41 | XMS_ITS | Encounter Summary ---
Author Organization [facility] Address [address] [place] [address] Phone Care Team Providers Care Alteration Manager Name Role Phone Jaden Crabtree DO Primary Care Provider [phone] Encounter Details Date Type Department Care Team (Late st Contact Info) Description 09/20/2023 Patient Risk Score ACO Care Management [address] [facility] [address] [place] [address] Social History Tobacco Use Types [...] on filedocumented in this encounter Care Teams Alteration Manager Relationship Specialty Start Date End Date Jaden Crabtree DO PCP - General 08/16/21 documented as of this encounter
--- OUTSIDE RECORDS SUMMARY | 2025-06-02 10:41 | XMS_ITS | Encounter Summary ---
Author Organization [facility] [email or web address] [facility] Address [id number] [address] [place] [address] Care Team Providers Care Dumper Mold Cleaner Name Role Phone Jaden Crabtree DO Primary Care Provider Encounter Details Date Type Department Care Team (Late st Contact Info) Description 03/02/2025 Orders Only [facility] [address] [facility] [address] [place] [address] Tracey Marin MD [address], [facility] [address] [place] [address] Social History Tobacco Use Types Packs/Day Years [...] Office Visit [facility], A Department of [address] [place] [address] Lyn Lawton MD [address] [place] [address] [address] [place] [address] documented as of this encounter Goals Goal [...] 12:17 PM EDT) us Tracey Marin MD [place] [facility] Final Result documented in this encounter Visit Diagnoses Not on filedocumented in this encounter Additional Health Concerns Assessment Noted Time PHQ-9 Depression Total Score: 21 024 11:29 AM EST A Body Mass Index follow-up plan has been documented for the patient 10/07/2024 3:14 PM EST documented as of this encounter Care Teams Dumper Mold Cleaner Relationship Specialty Start Date End Date Jaden Crabtree DO [address] [place] [address] PCP - General Family Medicine 01/17/21 documented as of this encounter
--- OUTSIDE RECORDS SUMMARY | 2025-06-02 10:41 | XMS_ITS | Clinical Summary ---
Author Organization [facility] Address [address] [place] [address] Care Team Providers Care Wine Merchant Name Role Phone Unavailable Primary Care Provider [...] SEGMENTAL BLOOD PRESSURE 04/11/2025 3:48 PM EDT from Last 3 Months Results * SEGMENTAL BLOOD PRESSURE (04/11/2025 3:48 PM EDT) Anatomical Region Laterality Modality Radiographic Jennifer ging 04/11/2025 3:48 PM EDT Narrative 04/11/2025 10:14 PM EDT The [address] [address] Cardiology Report Signed Patient: ALISIA CORREA MR#: [id number] : 1960 Acct:[id number] Age/Sex: 64 / M ADM Date: 04/11/25 Loc: CARD Attending Dr: Tracey Marin M.D. Ordering Physician: Tracey Marin M.D. Date of Service: 04/11/25 Procedure(s): CA segmental UE or LE MARIXA Accession Number(s): [id number] cc: ELLEN ARIAS ; Tracey Marin M.D. The [facility] Test Date: 2025-04-11 Pat Name: ALISIA CORREA Department: Room: - Gender: Male Back Grinder: : 1960 Requested By: 1894 Order Number: [id number] Reading MD: JOSY JC M.D. Interpretive Statements [...] By: JOSY JC Signed By: 04/11/25 2214 04/11/25 2214 DD/ 1548 TD/TT: Subscription Crew Leader: Procedure Note Radiology, Radiologist, MD - 04/11/2025 [place] [address] Cardiology Report Signed Patient: ALISIA CORREA LMR#: [id number] : 1960cct:[id number] Age/Sex: 64 / MADM Date: 04/11/25 Loc: CARD Attending Dr: Tracey Marin M.D. Ordering Physician: Tracey Marin M.D. Date of Service: 04/11/25 Procedure(s): CA segmental UE or LE MARIXA Accession Number(s): [id number] cc: ELLEN ARIAS ; Tracey Marin M.D. [facility] Test Date: 2025-04-11 Pat Name: ALISIA CORREA Department: Room: - Gender: Male Back Grinder: : 1960 Requested By: 1892 Order Number: [id number] Reading MD: JOSY JC M.D. Interpretive Statements [...] JC M.D. Dictated By: JOSY JC Signed By:04/11/25 2214 04/11/25 2214 DD/ 1548 TD/TT: Subscription Crew Leader: Tracey Marin MD IMG XR PROCEDURES Final Resu lt from Last 3 Months
--- OUTSIDE RECORDS SUMMARY | 2025-06-02 10:41 | XMS_ITS | Encounter Summary ---
Author Organization [facility] Address [id number] [address] [place] [address] Care Team Providers Care Social Insurance Adviser Name Role Phone Jaden Crabtree DO Primary Care Provider [phone] Reason for Visit * Reason Onset Date Comments Med Refill 04/06/2025 Encounter Details Date Type Department Care Team (Late st Contact Info) Description 04/06/2025 Refill [facility] [address] [place] [phone] Andrés Bowden MD [address] [place] [address], [facility] [address] [place] [address] Spinal stenosis of lumbar region [...] Description 07/26/2025 10:00 AM EDT Office Visit [facility], A Department of [address] [place] [address] Lyn Lawton MD [address] [place] [address] [address] [place] [address] documented as of this encounter Goals Goal [...] documented as of this encounter Care Teams Social Insurance Adviser Relationship Specialty Start Date End Date Jaden Crabtree DO [address] [place] [address] PCP - General Family Medicine 01/17/21 documented as of this encounter
--- OUTSIDE RECORDS SUMMARY | 2025-06-02 10:41 | XMS_ITS | Encounter Summary ---
Author Organization [facility] Address [address] [place] [address] Care Team Providers Care Correspondence Section Supervisor Name Role Phone Jaden Crabtree Primary Care Provider [phone] Source Comments In the event this information is protected by the Federal Confidentiality of Alcohol and Drug AbusePatient Records regulations: The Federal rules restrict any use of the information to criminally investigate or prosecute any alcohol or drug abuse patient.[facility] Encounter Details Date Type Department Care Team (Late st Contact Info) Description 06/16/2016 Abstract Gastroenterology [address] [place] [phone] Bhupendra Barajas MD [address] [place] [address] Social History Tobacco Use Types Packs/Day Years [...] documented as of this encounter Care Teams Correspondence Section Supervisor Relationship Specialty Start Date End Date Jaden Crabtree [address] [place] [phone] PCP - General 06/10/02 documented as of this encounter
--- OUTSIDE RECORDS SUMMARY | 2025-06-02 10:41 | XMS_ITS | Encounter Summary ---
Author Organization [facility] Address [facility] [address] [place] [address] Care Team Providers Care Acetylene Gas Compressor Name Role Phone Jaden Crabtree DO Primary Care Provider [phone] Reason for Visit * Reason Onset Date Comments Med Refill 03/31/2025 Encounter Details Date Type Department Care Team (Late st Contact Info) Description 03/31/2025 Refill [facility] [address] [place] [phone] Andrés Bowden MD [address] [place] [address], [facility] [address] [place] [address] Spinal stenosis of lumbar region [...] medication diversion, or non compliance. Reviewed by CARDIOLOGY NURSE PRACTITIONER. Pend for signature. documented in this encounter Plan of Treatment Upcoming Encounters Date Type Department Care Team (Late st Contact Info) Description 07/26/2025 10:00 AM EDT Office Visit [facility], A Department of [address] [place] [address] Lyn Lawton MD [address] [place] [address] 101, [address] [place] [address] documented as of this encounter Goals Goal [...] documented as of this encounter Care Teams Acetylene Gas Compressor Relationship Specialty Start Date End Date Jaden Crabtree DO [address] [place] [address] PCP - General Family Medicine 01/17/21 documented as of this encounter
--- OUTSIDE RECORDS SUMMARY | 2025-06-02 10:41 | XMS_ITS | Encounter Summary ---
Author Organization [facility] [employer] Address [id number] [address] [place] [address] Care Team Providers Care Guard Manager Name Role Phone Jaden Crabtree DO Primary Care Provider [phone] Encounter Details Date Type Department Care Team (Late st Contact Info) Description 04/14/2024 Orders Only [facility] [address] [place] [address] Tracey Marin MD [address], [address] [address] Social History Tobacco Use Types Packs/Day Years [...] Office Visit [facility], A Department of [address] [place] [phone] Lyn Lawton MD [address] [place] [address], [facility] [address] [place] [address] documented as of this encounter Goals Goal [...] 2:04 PM EDT) us Tracey Marin MD [place] [facility] Final Result MANUALLY TRANSCRIBED RESULTS documented in this encounter Visit Diagnoses Not on filedocumented in this encounter Additional Health Concerns Assessment Noted Time PHQ-9 Depression Total Score: 12 11/16/ 024 1:16 PM EST A Body Mass Index follow-up plan has been documented for the patient 08/25/2022 6:32 AM EST documented as of this encounter Care Teams Guard Manager Relationship Specialty Start Date End Date Jaden Crabtree DO [address] [place], [place] [phone] PCP - General Family Medicine 01/17/21 documented as of this encounter
--- OUTSIDE RECORDS SUMMARY | 2025-06-02 10:41 | XMS_ITS | Encounter Summary ---
Author Organization [facility] Address [address] [place] [address] Care Team Providers Care Storm Chaser Name Role Phone Unavailable Primary Care Provider Unavailabl e Encounter Details Date Type Department Care Team (Late st Contact Info) Description 03/10/2024 Clinisync Result Encounter [facility] Unsolicited Tracey Marin MD [address], [place] [phone] Social History Tobacco Use Types Packs/Day Years [...] EDT Narrative 03/10/2024 1:04 PM EDT The [address] [address] Vein Report Signed Patient: ALISIA CORREA MR#: [id number] : 1960 Acct:[id number] Age/Sex: 63 / M ADM Date: 03/10/24 Loc: VC Attending Dr: Tracey Marin M.D. Ordering Physician: Tracey Marin M.D. Date of Service: 03/10/24 Procedure(s): VC SEGMENTAL PRESSURES Accession Number(s): [id number] cc: ELLEN ARIAS ; Tracey Marin M.D. The [place] [id number] Patient Name: ALISIA CORREA MRN: [id number] date: 1960 Sex: M Assigned Patient Location: Current Patient Location: VC Accession/Order Number: [id number] Exam Date: 03/10/2024 10:11 Report Date: 03/10/2024 [...] 177. Calf: 150, 150. DPA: 123, 147. CLERK CARRIER: 138, 147. 1st Toe: 77, 59 [...] Signed By: 03/10/24 1304 DD/ 1301 TD/TT: Sanitation Truck Driver: Procedure Note Radiology, Radiologist, - 03/10/2024 [place] [address] Vein Report Signed Patient: ALISIA CORREA LMR#: [id number] : 1960cct:[id number] Age/Sex: 63 / MADM Date: 03/10/24 Loc: VC Attending Dr: Tracey Marin M.D. Ordering Physician: Tracey Marin M.D. Date of Service: 03/10/24 Procedure(s): VC SEGMENTAL PRESSURES Accession Number(s): [id number] cc: ELLEN ARIAS ; Tracey Marin M.D. [place] [address] Patient Name: ALISIA CORREA MRN: [facility]:[id number] date: 1960 Sex: M Assigned Patient Location: VC Current Patient Location: VC Accession/Order Number: [id number] Exam Date: 03/10/2024 10:11 Report Date: 03/10/2024 [...] 177. Calf: 150, 150. DPA: 123, 147. CLERK CARRIER: 138, 147. 1st Toe: 77, 59 [...] M.D. Signed By:03/10/24 1304 DD/ 1301 TD/TT: Sanitation Truck Driver: us Tracey Marin MD IMG XR PROCEDURES Final Resu lt documented in this encounter Visit Diagnoses Not on filedocumented in this encounter
--- OUTSIDE RECORDS SUMMARY | 2025-06-02 10:41 | XMS_ITS | Encounter Summary ---
Author Organization [facility] Address [address] [place] [address] Phone Care Team Providers Care Lead Caregiver Name Role Phone Jaden Crabtree DO Primary Care Provider Encounter Details Date Type Department Care Team (Late st Contact Info) Description 10/21/2023 Patient Risk Score ACO Care Management [address] [facility] [address] [place] [address] Social History Tobacco Use Types [...] on filedocumented in this encounter Care Teams Lead Caregiver Relationship Specialty Start Date End Date Jaden Crabtree DO PCP - General 08/16/21 documented as of this encounter
--- OUTSIDE RECORDS SUMMARY | 2025-06-02 10:41 | XMS_ITS ---
Author Organization [facility] Address [address] [place] [address] Care Team Providers Care Studio Owner Name Role Phone Jaden Crabtree Primary Care Provider [phone] Active Problems Patient Care Coordination No te [...] BPH, GERD, T2DM, who was admitted to [facility] on 11/20 from the ED for [...] Events Past 24: Accepted for transfer to [facility], however had episode of bradycardia to [...] - Psych consulted, appreciate recs - Continue ORDER SELECTOR Cymbalta, Lyrica, Topamax - Continue Mirtazapine - [...] (05/20/2017): Added automatically from request for surgery [id number] Arthritis of knee 04/27/2017 Type 2 diabetes [...]
--- OUTSIDE RECORDS SUMMARY | 2025-06-02 10:41 | XMS_ITS | Clinical Summary ---
Author Organization [facility] Address [address] [place] [address] Care Team Providers Care Sales Developer Name Role Phone Jaden Crabtree Primary Care Provider [phone] Allergies Active Allergy Reactions Criticality Noted Date [...] BPH, GERD, T2DM, who was admitted to [facility] on 11/20 from the ED for [...] Events Past 24: Accepted for transfer to [facility], however had episode of bradycardia to [...] - Psych consulted, appreciate recs - Continue SIGNAL CONSTRUCTOR Cymbalta, Lyrica, Topamax - Continue Mirtazapine - [...] (05/20/2017): Added automatically from request for surgery [id number] Arthritis of knee 04/27/2017 Type 2 diabetes [...] influenza vaccine, unspecified formulation 07/15 novel influenza (M0J3-25) vaccine, PF 08/24/2009 pneumococcal conjugate (PCV1 3) [...] place to sleep or slept in a jail (including now)? No 11/25/2022 Area Deprivation Index Answer Date Ross rded National Score (1-100), lower number is lower ri sk Not on file 09/23/2020 State Score (1-10), lower number is lower risk N ot on file 09/23/2020 Data from: [email or web address] Last address used for calculation Not [...] 11/15/2018, 10/22/2015 Medical Devices Implanted Type Area Epic Application Coordinator Device Identifier Shelf Expiration Date Model / Serial / Lot Restrictor 24mm Medium Yale Cement Revision Plug Hip - [id number] Implanted:Qty: 1 on 04/27/2017 at [facility] Cement / Putty Left: Bone - Knee [employer] 07/28/2021 [id number] / / [id number] Cement Simplex P Tobramycin Bone Full Dose Radiopaque Preblend Sterile - [id number] Implanted:Qty: 5 on 04/27/2017 at [facility] Cement / Putty Left: Bone - Knee [employer] 07/28/2018 6197-9-010 / / [id number] Restrictor 30mm Large Yale Cement Revision Plug Hip - [id number] Implanted:Qty: 1 on 04/27/2017 at [facility] Cement / Putty Left: Bone - Knee [employer] 10/28/2021 [id number] / / [id number] Cement Simplex P Speedset Bone Radiopaque Sterile - [id number] Implanted:Qty: 1 on 12/29/2017 at [facility] Cement / Putty Left: Bone - Shoulder [employer] 02/15/2019 [id number] / / [id number] Zri-Zj-C-Kind Implant - [id number] Implanted:Qty: 1 on 06/05/2016 at [facility] Implant N/A: Back OTHER 01/16/2019 [id number] / / [id number] Description:NEVRO JAZLYN. N300 LEAD ANCHOR KIT Head Global Unite 52mm Standard 18mm Humeral - [id number] Implanted:Qty: 1 on 12/29/2017 at [facility] Implant Left: Bone - Shoulder [employer] 06/18/2025 [id number] / / [id number] Nevro Patient Care Technician Kit Implanted:Qty: 1 on 03/16/2018 at [facility] Implant N/A: Back OTHER 05/14/2020 [id number] [id number] / / [id number] Head V40 28mm -2.7mm Offset Taper Biolox Delta Femoral Hip - [id number] Implanted:10/20 at [facility] (Quantity not on file) Joint - Hip Left: Bone - Hip [employer] 07/29/2024 [id number] / / [id number] Liner 46mm F Cocr Acetabular Modular Dual Mobility Primary Hip - [id number] Implanted:10/20 at [facility] (Quantity not on file) Joint - Hip Left: Bone - Hip [employer] 08/29/2024 [id number] / / [id number] Insert Adm Mobile Bearing Hip Hinduism 52mm 28mm 0d X3 8.9mm Acetabular - [id number] Implanted:10/20 at [facility] (Quantity not on file) Joint - Hip Left: Bone - Hip [employer] 09/28/2024 [id number] / / [id number] Insert Adm Mobile Bearing Hip Hinduism 52mm 28mm 0d X3 8.9mm Acetabular - [id number] Implanted:04/18 at [facility] (Quantity not on file) Joint - Hip Right: Bone - Hip [employer] 01/09/2025 [id number] / / [id number] Head V40 28mm +4mm Offset Taper Biolox Delta Femoral Hip - [id number] Implanted:04/18 at [facility] (Quantity not on file) Joint - Hip Right: Bone - Hip [employer] 12/30/2024 [id number] / / [id number] Liner 46mm F Cocr Acetabular Modular Dual Mobility Primary Hip - [id number] Implanted:04/18 at [facility] (Quantity not on file) Joint - Hip Right: Bone - Hip [facility] 12/20/2024 [id number] / / [id number] Stem Triathlon 12mm Cocr 100mm Femoral Cemented Total Stabilized Knee - [id number] Implanted:Qty: 1 on 04/27/2017 at [facility] Joint - Knee Left: Bone - Knee [facility] [id number] / / [id number] Stem Triathlon 15mm Cocr 50mm Femoral Cemented Total Stabilize Knee - [id number] Implanted:Qty: 1 on 04/27/2017 at [facility] Joint - Knee Left: Bone - Knee [facility] 03/09/2022 [id number] / / [id number] Component Triathlon 7 Cocr Femoral Total Stabilize Knee Left - [id number] Implanted:Qty: 1 on 04/27/2017 at [facility] Joint - Knee Left: Bone - Knee [facility] 11/04/2021 [id number] / / [id number] Augment Triathlon 7 5mm Femoral Total Stabilize Knee Posterior - [id number] Implanted:Qty: 1 on 04/27/2017 at [facility] Joint - Knee Left: Bone - Knee [facility] 01/22/2022 [id number] / / [id number] Augment Triathlon 7 5mm Femoral Total Stabilize Knee Left - [id number] Implanted:Qty: 1 on 04/27/2017 at [facility] Joint - Knee Left: Bone - Knee [facility] 07/16/2022 [id number] / / [id number] Augment Triathlon 7 5mm Femoral Total Stabilize Knee Left - [id number] Implanted:Qty: 1 on 04/27/2017 at [facility] Joint - Knee Left: Bone - Knee [facility] 05/19/2020 [id number] / / [id number] Augment Triathlon 6 10mm Tibial Total Stabilize Right Medial Left Lateral - [id number] Implanted:Qty: 1 on 04/27/2017 at [facility] Joint - Knee Left: Bone - Knee [facility] 04/18/2020 [id number] / / [id number] Baseplate Triathlon 6 Yale Cocr Tibial Total Stabilize Cemented Knee - [id number] Implanted:Qty: 1 on 04/27/2017 at [facility] Joint - Knee Left: Bone - Knee [facility] 03/11/2022 [id number] / / [id number] Augment Triathlon 6 10mm Tibial Total Stabilize Left Medial Right Lateral - [id number] Implanted:Qty: 1 on 04/27/2017 at [facility] Joint - Knee Left: Bone - Knee [employer] 08/07/2022 6396F057 / / [id number] Insert Triathlon 6 X3 16mm Tibial Total Stabilize Plus Knee - [id number] Implanted:Qty: 1 on 04/27/2017 at [facility] Joint - Knee Left: Bone - Knee [facility] 11/20/2021 [id number] / / [id number] Component Triathlon 7 Pa Femoral Cruciate Retain Bead Knee Right - [id number] Implanted:Qty: 1 on 07/01/2017 at [facility] Joint - Knee Right: Bone - Knee [facility] 02/25/2022 [id number] / / [id number] Insert Triathlon 6 X3 13mm Tibial Condylar Stabilized Knee - [id number] Implanted:Qty: 1 on 07/01/2017 at [facility] Joint - Knee Right: Bone - Knee [facility] 10/30/2021 [id number] / / [id number] Baseplate Triathlon 6 Tritanium [id number] Tibial 4 Cruciform Peg Keel Knee - [id number] Implanted:Qty: 1 on 07/01/2017 at [facility] Joint - Knee Right: Bone - Knee [employer] 03/09/2022 5536-B-600 / / [id number] Component Tritanium 35mm Metal 10mm Patellar Asymmetric Knee - [id number] Implanted:Qty: 1 on 07/01/2017 at [facility] Joint - Knee Right: Bone - Knee [employer] 02/23/2022 5552-L-350 / / [id number] Component Triathlon 35mm 10mm Patellar Asymmetric Knee - [id number] Implanted:Qty: 1 on 04/27/2017 at [facility] Joint - Patella Left: Bone - Knee [employer] 11/25/2021 [id number] / / [id number] Head 48mm 7mm Humeral Union Peg Left Glenoid - [id number] Implanted:Qty: 1 on 12/29/2017 at [facility] Joint - Shoulder Left: Bone - Shoulder [employer] 08/18/2021 [id number] / / [id number] Stem Global Ap 12mm Porocoat 137mm Humeral Arthroplasty System Shoulder - [id number] Implanted:Qty: 1 on 12/29/2017 at [facility] Joint - Shoulder Left: Bone - Shoulder [employer] 11/18/2025 [id number] / / [id number] Assembly Global Ap 135d Taper Fix Shoulder Arthroplasty System - [id number] Implanted:Qty: 1 on 12/29/2017 at [facility] Joint - Shoulder Left: Bone - Shoulder [employer] 01/16/2027 [id number] / / [id number] Augment Triath Tib Cone Sz A - [id number] Implanted:Qty: 1 on 04/27/2017 at [facility] Joint Left: Bone - Knee [employer] 12/26/2021 5549-A-110 / / [id number] Stem Accolade Ii 7 127d Femoral - [id number] Implanted:10/20 at [facility] (Quantity not on file) Joint Left: Bone - Hip [employer] 03/30/2024 7644-6862 / / [id number] Shell Trident Ii 56mm F Tritanium Acetabular 5 Screw Hole Cluster Sterile - [id number] Implanted:10/20 at [facility] (Quantity not on file) Joint Left: Bone - Hip [employer] 06/30/2024 702-04-56F / / [id number] Stem Accolade Ii 7 127d Femoral - [id number] Implanted:04/18 at [facility] (Quantity not on file) Joint Right: Bone - Hip [employer] 07/03/2024 9087-1453 / / [id number] Shell Trident Ii 56mm F Tritanium Acetabular 5 Screw Hole Cluster Sterile - [id number] Implanted:04/18 at [facility] (Quantity not on file) Joint Right: Bone - Hip [employer] 09/19/2024 702-04-56F / / [id number] Lead 50cm Nevro - [id number] Implanted:Qty: 2 on 05/08/2016 at [facility] Lead N/RL 01/07/2019 LRZP1464-6 0B / / [id number] Description:50 Lead 50cm Nevro - [id number] Implanted:Qty: 1 on 06/05/2016 at [facility] Lead Left: Back OTHER 02/15/2019 [id number] 0B / / [id number] Description:NEVRO BLUE PERC LEAD KIT Lead 50cm Nevro - [id number] Implanted:Qty: 1 on 06/05/2016 at [facility] Lead Right: Back OTHER 02/15/2019 KQUC3850-6 0B / / [id number] Description:NEVRO BLUE PERC LEAD KIT Gnrtr Nrstm Ipg Kit Nevro - [id number] Implanted:Qty: 1 on 06/05/2016 at [facility] Neurostimulator N/A: Back OTHER 02/15/2018 NIPG1 500 / [id number] / [id number] Description:NEVRO NIPG KIT Procedures Procedure Name Priority [...] 79 <200 mg/dL 11/29/2022 10:30 PM EST [facility] Comment: <200 mg/dL, Desirable 200-239 mg/dL, Borderline high >239 mg/dL, High Triglycerides, Nonfasting 117 <150 mg/dL 11/29/2022 10:[address] [facility] Comment: <150 mg/dL, Normal 150-199 mg/dL, Borderline high 200-499 mg/dL, High >499 mg/dL, Very high HDL Cholesterol, Nonfasting 15(L) >39 mg/dL 11/29/2022 10:[address] [facility] Comment: 40-59 mg/dL, Acceptable >59 mg/dL, High: Negative risk factor for coronary heart disease <40 mg/dL, Low: Positive risk factor for coronary heart disease LDL Cholesterol Calculated, Nonfasting 41 <100 mg/dL 11/29/2022 10:[address] [facility] Comment: <100 mg/dL, Optimal 100-129 mg/dL, Near optimal/above optimal 130-159 mg/dL, Borderline high 160-189 mg/dL, High >189 mg/dL, Very high Secondary prevention optimal LDL Cholesterol levels are recommended to be < 70 mg/dL Non HDL Cholesterol, Nonfasting 64 <130 mg/dL 11/29/2022 10:[address] [facility] Comment: <130 mg/dL, Optimal 130-159 mg/dL, Near optimal/above optimal 160-189 mg/dL, Borderline high 190-219 mg/dL, High >219 mg/dL, Very high Secondary prevention optimal non HDL Cholesterol levels are recommended to be <100 mg/dL VLDL Cholesterol, Nonfasting 23 <30 mg/dL 11/29/2022 10:[address] [facility] Total Chol/HDL Ratio, Nonfasting 5.27(H) <5.10 mg/dL 11/29/2022 10:[address] [facility] LDL/HDL Ratio, Nonfasting 2.73(H) <2.54 mg/dL 11/29/2022 10:[address] [facility] Comment: Reference: 1. National Cholesterol Education Program ATP III Guideline At-A-Glance Quick Desk Reference: National Heart, Lung, and Blood Sawyer. National Institutes of Health. 2001: NIH Publication No. 01-3305. 2. An International Atherosclerosis Society position paper: global recommendations for the management of dyslipidemia: executive summary, Atherosclerosis. 2014: 232(2):410-413. Blood BLOOD SPECIMEN / Unknown Venipuncture / Unknown 11/29/2022 2:31 AM EST 11/29/2022 2:47 AM EST Conrado Harris MD LABORATORY Final Result Performing Organization Address [facility] Co de Phone Number [facility] [address] [facility] [address] [place] [address], [place] * HGB A1C (04/24/2020 1:03 PM EDT) Hemoglobin A1C 5.6 4.3 - 5.6 % 04/24/2020 1:36 PM EDT [facility] Estimated Average Glucose 114 mg/dL 04/24/2020 1:36 PM EDT [facility] Comment: eAG: (Estimated average glucose) is a calculated value from HgbA1c and is employer relations representative of the average blood glucose level in the last 2-3 month period. Blood specimen (specimen) WHOLE BLOOD SPECIMEN / Unknown 04/24/2020 1:03 PM EDT 04/24/2020 1:05 PM EDT Steven Guevara Jr., MD LABORATORY Final Re sult Performing Organization Address [facility] Co de Phone Number [facility] [address] [place] [address] [facility] [address] [facility], [address] * COLONOSCOPY - DIAGNOSTIC (08/11/2016 10:20 AM EDT) Fabric Worker A31 Gastrointestinal Endoscopy Patient Name: Jamarcus García [...] Most Recently Relevant to Health Maintenance Insurance [facility] [employer] Address: [address] [place] [phone] [facility] Advance Directives * DNR-CC (Latest Code Status [...] Code Order Discussed With: Patient Care Teams Sales Developer Relationship Specialty Start Date End Date Jaden Crabtree [address] [place] [address] PCP - General 06/10/02
--- OUTSIDE RECORDS SUMMARY | 2025-06-02 10:41 | XMS_ITS | Clinical Summary ---
Author Organization [facility] tem Address [id number] [address] 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 ([facility]) 2 tabs daily as directed 180 tablet [...] Department Care Team Description 04/26/2025 Orders Only [facility] - Neurophysiology [address] [place] [address] Lyn Lawton MD Chronic intractable headache, unspecified headache type (Primary Dx) 04/19/2025 Orders Only [facility] - Neurophysiology [address] [place] [address] Lyn Lwaton MD Parkinson's disease without dyskinesia or fluctuating manifestations ([facility]) (Primary Dx); Dysphagia, unspecified type 04/13/2025 [facility]phone [facility] Department of [facility] [address] [place] [address] Zahra Cevallos Speech Therapy 04/12/2025 Orders Only [facility] [address] [place] [address] Mine Iraheta CMA Encounter for abdominal aortic aneurysm (AAA) screening; Open wound of left great toe, subsequent encounter; Critical limb ischemia of left lower extremity with gangrene ([facility]) 04/06/2025 Refill [facility] [address] [place] [address] Andrés Bowden MD Spinal stenosis of lumbar region with neurogenic claudication 04/04/2025 Refill [facility] [address] [place] [address] Andrés Bowden MD Spinal stenosis of lumbar region with neurogenic claudication 03/31/2025 Refill [facility] [address] [place] [address] Andrés Bowden MD Spinal stenosis of lumbar region with neurogenic claudication 03/31/2025 Orders Only [facility] Neurology, A Department of [address] [place] [address] Lyn Lawton MD Dysautonomia orthostatic hypotension syndrome (Primary Dx) 03/29/2025 9:50 AM EDT - 03/29/2025 11:59 PM EDT Hospital Encounter [facility] - Radiology [address] [place] [phone] Dysphagia, unspecified type; Globus sensation Discharge Disposition: Home 03/29/2025 9:47 AM EDT - 03/29/2025 9:49 AM EDT Hospital Encounter [facility] - CT Imaging [address] [place] [address] Cerebellar dysmetria Discharge Disposition: Home 03/29/2025 Travel 03/16/2025 9:10 AM EDT [facility] [address] [place] [phone] Tracey Marin MD Encounter for abdominal aortic aneurysm (AAA) screening (Primary Dx); Open wound of left great toe, subsequent encounter; Critical limb ischemia of left lower extremity with gangrene ([facility]) 03/15/2025 Travel 03/14/2025 3:00 PM EDT Office Visit [facility] Neurology, A Department of [address] [place] [address] Lyn Lawton MD Dysphagia, unspecified type (Primary Dx); Globus sensation; Dysautonomia orthostatic hypotension syndrome; Constipation, unspecified constipation type; Cerebellar dysmetria 03/12/2025 Travel 03/02/2025 Orders Only [facility] [address] [place] [address] Tracey Marin MD from Last 3 Months [...] Description 07/26/2025 10:00 AM EDT [facility] Department of [address] [place] [address] Lyn Lawton MD [address] [place] [address] [address] [place] [address] Health Maintenance Due Date Last Done Comments Diabetic Ophthalmology Exam 1960 Statin Use: Diabetic 1958 Diabetic Foot Exam 1976 Zoster (Shingles) [...] and rehab Medical Devices Implanted Type Area Supervisor Cutting And Sewing Room Device Identifier Shelf Expiration Date Model / [...] on 03/29/2025 2:13 PM Procedure Note Papito Norris DO - 03/29/2025 STUDY: Video fluoroscopic swallow study [...] on 03/29/2025 2:13 PM Lyn Lawton MD IM FLUOROSCOPY ORDERABLES Final Result * CT brain [...] Anatomical Region Laterality Modality Vascular N/A Ultrasound Tracey Marin MD CV VASCULAR ORDERABLES Final Result * ULTRASOUND, ABDOMINAL AORTA, REAL TIME WITH IMAGE DOCUMENTATION, SCREENING STUDY FOR ABDOM (03/02/2025 12:17 PM EDT) Tracey Marin MD [facility] Final Result from Last 3 Months Insurance [employer] [place] Advance Directives * Full Code (Latest Code Status on File) Date Activated Date Inactivated Comments 02/07/2021 1:34 PM 02/19/2021 4:48 PM * Full Code Date Activated Date Inactivated Comments 02/03/2021 2:46 PM 02/07/2021 1:08 PM Care Teams Hand Drawer In Relationship Specialty Start Date End Date Jaden Crabtree DO [address] [place] [address] PCP - General Family Medicine 01/17/21
--- OUTSIDE RECORDS SUMMARY | 2025-06-02 10:41 | XMS_ITS | Encounter Summary ---
Author Organization [facility] [employer] [facility] tem Address [id number] [address] [place] [address] Care Team Providers Care Claim Review Medical Director Name Role Phone Jaden Crabtree DO Primary Care Provider [phone] Encounter Details Date Type Department Care Team (Late Contact Info) Description 02/18/2024 Orders Only [facility] [address] [place] [phone] Ref Prov, [place] [address] Social History Tobacco Use Types Packs/Day Years [...] Office Visit [facility] Department of [address] [place] [address] Lyn Lawton MD [address] [place] [address] [address] [place] [address] documented as of this encounter Goals Goal [...] documented as of this encounter Care Teams Claim Review Medical Director Relationship Specialty Start Date End Date Jaden Crabtree DO [address] [place] [address] PCP - General Family Medicine 01/17/21 documented as of this encounter
--- OUTSIDE RECORDS SUMMARY | 2025-06-02 10:41 | XMS_ITS | Clinical Summary ---
Author Organization [facility] Address [address] [place] [address] Phone Care Team Providers Care Knife Glazer Name Role Phone Leyda Jaden Dawson DO Primary Care Provider [phone] Social History Tobacco Use Types Packs/Day Years [...] age to complete this topic Care Teams Knife Glazer Relationship Specialty Start Date End Date Jaden Crabtree DO PCP - General 08/16/21
--- OUTSIDE RECORDS SUMMARY | 2025-06-02 10:41 | XMS_ITS | Encounter Summary ---
Author Organization [facility] Address [address] [place] [address] Care Team Providers Care Decorating And Assembly Supervisor Name Role Phone Unavailable Primary Care Provider Unavailabl e Encounter Details Date Type Department Care Team (Late st Contact Info) Description 03/10/2024 Clinisync Result Encounter [facility] External Department Unsolicited Tracey Marin MD [address], [place] [phone] Social History Tobacco Use Types Packs/Day Years [...] EDT Narrative 03/10/2024 2:33 PM EDT The [address] [address] Vein Report Signed Patient: ALISIA CORREA MR#: [id number] : 1960 Acct:[id number] Age/Sex: 63 / M ADM Date: 03/10/24 Loc: [facility] Attending Dr: Tracey Marin M.D. Ordering Physician: Tracey Marin M.D. Date of Service: 03/10/24 Procedure(s): VC US AAA SCREEN Accession Number(s): [id number] cc: ELLEN ARIAS ; Tracey Marin M.D. The [address] [id number] Patient Name: ALISIA CORREA MRN: [id number] date: 1960 Sex: M Assigned Patient Location: Current Patient Location: VC Accession/Order Number: [id number] Exam Date: 03/10/2024 10:05 Report Date: 03/10/2024 14:31 At the request of: TRAECY MARIN Procedure: VC US AAA SCREEN EXAM: [...] Mcdonough M.D. Signed By: 03/10/24 1433 DD/ 143 TD/TT: Criminology Professor: Procedure Note Radiology, Radiologist, MD - 03/11/[address] [address] Vein Report Signed Patient: ALISIA CORREA LMR#: [id number] : 1960cct:[id number] Age/Sex: 63 / MADM Date: 03/10/24 Loc: VC Attending Dr: Tracey Marin M.D. Ordering Physician: Tracey Marin M.D. Date of Service: 03/10/24 Procedure(s): VC US AAA SCREEN Accession Number(s): [id number] cc: ELLEN ARIAS ; Tracey Marin M.D. The [place] [address] Patient Name: ALISIA CORREA MRN: [facility]:[id number] date: 1960 Sex: M Assigned Patient Location: Current Patient Location: Accession/Order Number: [id number] Exam Date: 03/10/2024 10:05 Report Date: 03/10/2024 [...] Lizeth Mcdonough M.D. Signed By:03/10/24 1433 DD/ 30 TD/TT: Criminology Professor: Tracey Marin MD IMG US PROCEDURES Final Resu lt documented in this encounter Visit Diagnoses Not on filedocumented in this encounter
--- OUTSIDE RECORDS SUMMARY | 2025-06-02 10:41 | XMS_ITS | Encounter Summary ---
Author Organization [facility] [employer] s tem Address [id number] [address] [place] [address] Care Team Providers Care Promotional Marketing Agent Name Role Phone Jaden Crabtree DO Primary Care Provider [phone] Encounter Details Date Type Department Care Team (Late Contact Info) Description 04/12/2025 Orders Only [facility] [address] [place] [address] Mine Iraheta CMA Encounter for abdominal aortic aneurysm (AAA) screening; Open wound of left great toe, subsequent encounter; Critical limb ischemia of left lower extremity with gangrene ([facility]) Social History Tobacco Use Types Packs/Day Years [...] Description 07/26/2025 10:00 AM EDT [facility] Department of [address], [address] [place] [phone] Lyn Lawton MD [address] [place] [address], [facility] 101, [address], [address] [place] [address] documented as of this encounter Goals Goal [...] ischemia of left lower extremity with gangrene ([facility]) documented in this encounter Additional Health Concerns Assessment Noted Time PHQ-9 Depression Total Score: 21 024 11:29 AM EST A Body Mass Index follow-up plan has been documented for the patient 10/07/2024 3:14 PM EST documented as of this encounter Care Teams Promotional Marketing Agent Relationship Specialty Start Date End Date Jaden Crabtree DO [address] [place] [address] PCP - General Family Medicine 01/17/21 documented as of this encounter
--- OUTSIDE RECORDS SUMMARY | 2025-06-02 10:41 | XMS_ITS | Encounter Summary ---
Author Organization [facility] tem Address [facility]-[id number] [address] [place] [address] Care Team Providers Care Layout Former Name Role Phone Jaden Crabtree DO Primary Care Provider [phone] Reason for Visit * Reason Onset Date Comments Speech Therapy 04/13/2025 Encounter Details Date Type Department Care Team (Late st Contact Info) Description 04/13/2025 [facility] of [facility] [address] [facility] [address] [place] [phone] Zahra Cevallos Speech Therapy Social History Tobacco [...] Zahra Cevallos - 04/13/2025 4:27 PM EDT Controller Repairer And Tester received a call from patients about getting her a Speech Therapy referral from Dr. Lawton.Caller stated it was reccommended after patients swallow test. Caller stated she would like for speech therapy to be done at home. Callback number is [phone] Please advise, thank you documented in this encounter Plan of Treatment Upcoming Encounters Date Type Department Care Team (Late st Contact Info) Description 07/26/2025 10:00 AM EDT Office Visit [facility] Neurology, A Department of [address], [address] [place] [phone] Lyn Lawton MD [address] [place] [address] 101, [address], [address] [place] [address] documented as of this encounter [...] documented as of this encounter Care Teams Layout Former Relationship Specialty Start Date End Date Jaden Crabtree DO [address] [place] [address] PCP - General Family Medicine 01/17/21 documented as of this encounter
--- OUTSIDE RECORDS SUMMARY | 2025-06-02 10:42 | XMS_ITS | Encounter Summary ---
Author Organization [facility] tem Address [facility] [id number] [address] [place] [address] Care Team Providers Care Emergency Medcl Emt Name Role Phone Jaden Crabtree DO Primary Care Provider [phone] Reason for Visit * Reason Onset Date Comments Med Refill 05/23/2022 Encounter Details Date Type Department Care Team (Late st Contact Info) Description 05/23/2022 Telephone [facility] [address] [place] [phone] Peace Romo Med Refill Social History Tobacco [...] 05/23/[facility] 11:[facility] med [facility]ill script for Sinemet ER. She said that they have script for the regular 25-100 mg, but they need the ER and do not know the dosage for this. Last office visit with Reena Cervantes 09/26/21. Please send med refill script to [facility] in [place] located at: [address] [place] [address]. Their callback# if needed: [phone]. documented in this encounter Plan of Treatment Upcoming Encounters Date Type Department Care Team ([facility] st Contact Info) Description 07/26/2025 10:00 AM EDT Office Visit [facility] Neurology, A Department of [address], [address], [address] [place] [address] [place] [address] [place] [address] 101, 102, [address] [place], [place] [phone] documented as of this encounter Goals Goal [...] documented as of this encounter Care Teams Emergency Medcl Emt Relationship Specialty Start Date End Date Jaden Crabtree DO [address] [place] [address] PCP - General Family Medicine 01/17/21 documented as of this encounter
--- OUTSIDE RECORDS SUMMARY | 2025-06-02 10:42 | XMS_ITS | Encounter Summary ---
Author Organization [facility] Address [facility][id number] [address] [place] [address] Care Team Providers Care Software Development Intern Name Role Phone Jaden Crabtree DO Primary Care Provider [phone] Encounter Details Date Type Department Care Team (Late st Contact Info) Description 03/19/2021 Orders Only [facility] [address] [place] [address] Omar Arias CMA Erythema; PAD (peripheral artery disease) ([facility]); Claudication ([facility]); Swelling of lower extremity; Venous insufficiency of [...] Office Visit [facility], A Department of [address], [address], [address] [place] [phone] Lyn Lawton MD [address] [facility] [address], [address], [address] [place] [address] documented as of this encounter Goals Goal [...] SERUM Routine 01/31/2021 PAD (peripheral artery disease) ([facility]) Claudication ([facility]) Swelling of lower extremity Venous insufficiency [...] documented as of this encounter Care Teams Software Development Intern Relationship Specialty Start Date End Date Jaden Crabtree DO [address] [place] [address] PCP - General Family Medicine 01/17/21 documented as of this encounter
--- OUTSIDE RECORDS SUMMARY | 2025-06-02 10:42 | XMS_ITS | Encounter Summary ---
Author Organization [facility] [employer] [facility] Address [facility] [id number] [address] [place] [address] Care Team Providers Care Foot Drill Operator Name Role Phone Jaden Crabtree DO Primary Care Provider [phone] Reason for Visit * Reason Comments Med Refill Encounter Details Date Type Department Care Team (Late st Contact Info) Description 09/02/2023 Refill [facility] [address] [place] [phone] Andrés Bowden MD [address] [place] [address] 101, [address], [address] [place], [place] [phone] [facility] Social History Tobacco Use Types Packs/Day [...] 09/02/2023 9:04 AM EST Already signed by Rosalab - thanks!! documented in this encounter Plan of Treatment Upcoming Encounters Date Type Department Care Team (Late st Contact Info) Description 07/26/2025 10:00 AM EDT Office Visit [facility] Neurology, A Department of [address], [address], [address] [place] [address] Lyn Lawton MD [address] [place] [address] 101, [address], [address] [place] [address] documented as of this encounter Goals Goal [...] documented as of this encounter Care Teams Foot Drill Operator Relationship Specialty Start Date End Date Jaden Crabtree DO [address] [place] [address] PCP - General Family Medicine 01/17/21 documented as of this encounter
--- OUTSIDE RECORDS SUMMARY | 2025-06-02 10:42 | XMS_ITS | Patient Health Record ---
Author Organization [facility] Address [address] [place] [address] Care Team Providers Care Seasoning Mixer Name Role Phone PCP, NO Primary Care Provider Kami Das Clair Charlottemelly Unavailable [phone] Allergies Allergen (clinical drug ingredient) Drug/Non Drug Allergy documented on EMR Reaction Allergy Type Onset Date Status clonazepam KlonoPIN Unknown Drug Allergy Active Levaquin Unknown Drug Allergy Active celecoxib CeleBREX Unknown Drug Allergy Active erythromycin Unknown Drug Allergy Acti ve moxifloxacin Avelox Unknown Drug Allergy Acti ve Reason For Referral No Information Medications Medication SIG (Take, Route, Fr equency, Duration) Notes Start Date End Date Status tamsulosin Active Precose Active Linzess Active Docusate Sodium Acti ve topiramate Active multivitamin Active Tylenol Active carbidopa-levodopa A ctive albuterol Active midodrine Active potassium citrate Ac tive metFORMIN Active DICLOFENAC SODIUM Ac tive Protonix Active Lyrica Active sildenafil Active atorvastatin Active Symbicort Active Zetia Active Cymbalta Active Social History Tobacco Use: Social History Observation Description Date Details (start date - stop date) Current Smoker 10/19/1978 - NA Smoking History Question Answer Notes Smoking Status Current Smoker When did you start smoking? 10/19/1978 How much do you smoke 6 - 10 How soon after you wake up do you smoke your fir st cigarette? after 60 min Problems Problem Type SNOMED Code ICD Code Onset Dates Problem Status W/U Status Risk Notes Problem 643845287 Aftercare following surgery of the musculoskeletal system (Z47.89) Active confirmed Problem 92156885 Radiculopathy, cervical region (M54.12) Active confirmed Problem Bowel incontinence (93575895) Bowel incontinence (R15.9) Active confirmed Problem Spinal stenosis of lumbar region (11441880) Spinal stenosis, lumbosacral region (M48.07) Active confirmed Problem 24470876 Other intervertebral disc degeneration, lumbosacral region (M51.37) Active confirmed Problem 03875637932852004 Sciatica, righ t side (M54.31) Active confirmed Problem 60650640 Sciatica, left side (M54.32) Active confirmed Problem Urinary incontinence (606379989) Urinary incontinence (R32) Active confirmed Problem 76236986 Other cervical disc degeneration at C4-C5 level (M50.321) Active confirmed Problem 09264671 Other cervical disc degeneration at C5-C6 level (M50.322) Active confirmed Problem 79523255 Other cervical disc degeneration, high cervical region (M50.31) Active confirmed Problem Scoliosis of lumbar spine (751561057) Other form of scoliosis of lumbar spine (M41.86) Active confirmed Problem History of arthrodesis (527643320) 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 [address] [place] [phone] [id number] ALISIA CORREA Self - patient is the insured Medical (General) History Medical History History ICD Code High Blood Pressure: YES, Cancer: YES, Mouth Kidney stones YES, Osteoarthritis YES, Asthma: YES, Bronchitis YES, Anemia: YES, Emphysema YES, Diabetes YES, Anxiety: YES, Depression YES, Gastroesophageal reflux disease YES, Are you a healthcare worker? No, Sleep apnea: Yes CPAP Machine: Yes Do you use the CPAP machine? Yes Drug Allergies: YES, Surgical History Surgery Date(Month/Year) L2-S1 laminectomy, PSF 01/2022 Spinal Cord Stimulator Lumbar decompression Cervical spine surgery 1999, 2001 Shoulder surgery, left knee replacement, right knee replacement, left x 2
--- OUTSIDE RECORDS SUMMARY | 2025-06-02 10:42 | XMS_ITS | Encounter Summary ---
Author Organization [facility] tem Address [facility] [id number] [address] [place] [address] Care Team Providers Care Handle Sewer Name Role Phone Jaden Crabtree DO Primary Care Provider [phone] Reason for Visit * Reason Onset Date Comments Med Refill 01/08/2023 Encounter Details Date Type Department Care Team (Late st Contact Info) Description 01/08/2023 Refill [facility] [address] [place] [phone] Reena Cervantes, FARRAH-NATHEN [address] [place] [address] 101, [address], [address] [place], [place] [phone] Current moderate episode of major depressive disorder [...] Description 07/26/2025 10:00 AM EDT Office Visit [facility] Neurology, A Department of [address], [address], [address] [place] [phone] Lyn Lawton MD [address] [place] [address] 101, [address], [address] [place], [place] [phone] documented as of this encounter Goals Goal [...] documented as of this encounter Care Teams Handle Sewer Relationship Specialty Start Date End Date Jaden Crabtree DO [address] [place] [address] PCP - General Family Medicine 01/17/21 documented as of this encounter
--- OUTSIDE RECORDS SUMMARY | 2025-06-02 10:42 | XMS_ITS | Encounter Summary ---
Author Organization [facility] tem Address [facility][id number] [address] [place] [address] Care Team Providers Care Glass Checker Name Role Phone Jaden Crabtree DO Primary Care Provider [phone] Reason for Visit * Reason Onset Date Comments Med Refill 05/21/2022 Encounter Details Date Type Department Care Team ([facility] Contact Info) Description 05/21/2022 Telephone [facility] [address] [place] [phone] Susanna Tao Med Refill Social History Tobacco [...] day Pharmacy Name: [facility] [address] [place] [address] Request was made by: [facility] documented in this encounter Plan of Treatment Upcoming Encounters Date Type Department Care Team (Late st Contact Info) Description 07/26/2025 10:00 AM EDT Office Visit [facility] Neurology, A Department of [address], [address], [address] [place] [phone] Lyn Lawton MD [address] [place] [address] 101, [address], [address] [place] [address] documented as of this encounter Goals Goal [...] documented as of this encounter Care Teams Glass Checker Relationship Specialty Start Date End Date Jaden Crabtree DO [address] [place] [address] PCP - General Family Medicine 01/17/21 documented as of this encounter
--- OUTSIDE RECORDS SUMMARY | 2025-06-02 10:42 | XMS_ITS | Encounter Summary ---
Author Organization [employer] [facility] tem Address [facility] [id number] [address] [place] [address] Care Team Providers Care Electronic Console Display Operator Name Role Phone Jaden Crabtree DO Primary Care Provider [phone] Encounter Details Date Type Department Care Team (Late st Contact Info) Description 01/28/2021 Orders Only [facility] [address] [place] [phone] Za Omer CMA Social History Tobacco Use [...] Description 07/26/2025 10:00 AM EDT [facility] [address] [facility] [address], [address], [address] [place] [address] Lyn Lawton MD [address] [place] [address] 101, [address], [address] [place] [address] documented as of this encounter Visit Diagnoses Not on filedocumented in this encounter Additional Health Concerns Assessment Noted Time A Body Mass Index follow-up plan has been documented for the patient 01/18/2021 11:36 AM EDT documented as of this encounter Care Teams Electronic Console Display Operator Relationship Specialty Start Date End Date Jaden Crabtree DO [address] [place] [address] PCP - General Family Medicine 01/17/21 documented as of this encounter
--- OUTSIDE RECORDS SUMMARY | 2025-06-02 10:42 | XMS_ITS | Encounter Summary ---
Author Organization [facility] [facility] tem Address [facility] [id number] [address] [place] [address] Care Team Providers Care Handle Assembler Name Role Phone Michiramirez Jaden Dawson DO Primary Care Provider [phone] Encounter Details Date Type Department Care Team (Late st Contact Info) Description 09/28/2021 Orders Only [facility] [address] [place] [address] Shakeel Leiva MD Social History [...] Office Visit [facility], A Department of [facility] [address] [facility] [address], [address], [address] [place] [address] Lyn Lawton MD [address] [place] [address] 101, [address], [address] [place] [address] documented as of this encounter Goals Goal [...] as of this encounter Care Teams Handle Assembler Relationship Specialty Start Date End Date Jaden Crabtree DO [address] [place] [address] PCP - General Family Medicine 01/17/21 documented as of this encounter
--- OUTSIDE RECORDS SUMMARY | 2025-06-02 10:42 | XMS_ITS | Encounter Summary ---
Author Organization [facility] Address [address] [place] [address] Care Team Providers Care Semiconductor Equipment Technician Name Role Phone Jaden Crabtree Primary Care Provider [phone] Source Comments In the event this information is protected by the Federal Confidentiality of Alcohol and Drug AbusePatient Records regulations: The Federal rules restrict any use of the information to criminally investigate or prosecute any alcohol or drug abuse patient.[facility] Reason for Visit * Reason Comments PHOTOS TAKEN Encounter Details Date Type Department Care Team (Late st Contact Info) Description 10/08/2007 Abstract Plastic Surgery [address] [address] Anup Bergman (Hist) PHOTOS TAKEN Social History [...] Progress Notes * 10/08/2007 9:47 AM EST [id number] DATES OF PHOTOS: 10/08/2007 TAKEN WITH LENS: [...] documented as of this encounter Care Teams Semiconductor Equipment Technician Relationship Specialty Start Date End Date Jaden Crabtree [address] [place] [phone] PCP - General 06/10/02 documented as of this encounter
--- OUTSIDE RECORDS SUMMARY | 2025-06-02 10:42 | XMS_ITS | Clinical Summary ---
Author Organization [facility] Address [address] [facility], [address] [place] [address] Care Team Providers Care Financial Legal Assistant Name Role Phone Jaden Crabtree DO Primary Care Provider [phone] Allergies Active Allergy Reactions Criticality Noted Date Comments Moxifloxacin Hives,Shortness Of Breath High 01/24/20 22 Celecoxib Hives Medium 01/23/2022 Erythromycin Itching,Nausea And Vomiting Low 2021 Clonazepam Shortness Of Breath High 01/23/2022 Levofloxacin Hives,Shortness Of Breath High 01/24/20 22 Medications Laurel-3 Fatty Acids (FISH OIL) 1200 MG CAPS [...] on file Medical Devices Implanted Type Area House Painting Instructor Device Identifier Shelf Expiration Date Model / Serial / Lot Screw Spinal Streamline 7.5x55mm - [id number] Implanted:Qty: 1 on 02/07/2022 by Frank Loza MD at [facility] Spine N/A: Spine Lumbar [employer] [id number] / / Set Scr Spnl Ti Streamline - [id number] Implanted:Qty: 9 on 02/07/2022 by Frank Loza MD at [facility] N/A: Spine Lumbar [employer] [id number] / / Screw Spnl L45mm Dia7.5mm Thorlum Ti Ally Polyax Streamline - [id number] Implanted:Qty: 2 on 02/07/2022 by Frank Loza MD at [facility] N/A: Spine Lumbar [employer] [id number] / / Screw Spnl L50mm Dia7.5mm Thorlum Ti Ally Polyax Streamline - [id number] Implanted:Qty: 6 on 02/07/2022 by Frank Loza MD at [facility] N/A: Spine Lumbar [employer] [id number] / / Ta Spnl L120mm [id number] Thorlum Prebent Streamline - [id number] Implanted:Qty: 1 on 02/07/2022 by Frank Loza MD at [facility] N/A: Spine Lumbar [employer] [id number] / / At Spnl L100mm [id number] Thorlum Prebent Streamline - [id number] Implanted:Qty: 1 on 02/07/2022 by Frank Loza MD at [facility] N/A: Spine Lumbar [employer] [id number] / / Additional Health Concerns Infection Onset Date Last Indicated MRSA Comment:Thuan 01/202201/23/2022 01/23/[address] [place] [address] [place] [id number] Advance Directives * Full Code (Latest Code Status on File) Date Activated Date Inactivated Comments 02/13/2022 7:01 AM 02/18/2022 2:18 PM * Full Code Date Activated Date Inactivated Comments 02/07/2022 8:29 AM 02/07/2022 4:12 PM Care Teams Financial Legal Assistant Relationship Specialty Start Date End Date Jaden Crabtree DO [address] [place] [address] [address] PCP - General Family Medicine 01/23/22
--- OUTSIDE RECORDS SUMMARY | 2025-06-02 10:42 | XMS_ITS | Encounter Summary ---
Author Organization [facility] Address [address] [place] [address] Care Team Providers Care Electric Meter Installer Name Role Phone Jaden Crabtree Primary Care Provider [phone] Source Comments In the event this information is protected by the Federal Confidentiality of Alcohol and Drug AbusePatient Records regulations: The Federal rules restrict any use of the information to criminally investigate or prosecute any alcohol or drug abuse patient.[facility] Encounter Details Date Type Department Care Team (Late st Contact Info) Description 2023 [place] [address] Provider, [facility] Medicare Coverage of Physical Exams [...] place to sleep or slept in a residential (including now)? No 11/25/2022 Area Deprivation Index Answer Date Ross rded National Score (1-100), lower number is lower ri sk Not on file 09/23/2020 State Score (1-10), lower number is lower risk N ot on file 09/23/2020 Data from: https://www.neighborhoodatlas.medicine.[facility].edu/. Last address used for calculation [...] on filedocumented in this encounter Care Teams Electric Meter Installer Relationship Specialty Start Date End Date Jaden Crabtree [address] [place] [phone] PCP - General 06/10/02 documented as of this encounter
--- OUTSIDE RECORDS SUMMARY | 2025-06-02 10:42 | XMS_ITS | Encounter Summary ---
Author Organization [facility] Address [facility] [id number] [address] 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 ([facility]) Social History Tobacco Use Types [...] 07/26/2025 10:00 AM EDT [facility] Department of [address] 101, [address], [address] [place] [phone] Lyn Lawton MD [address] [place] [address] 101, [address], [address] [place] [address] documented as of this encounter Goals Goal [...] documented as of this encounter Care Teams Cloth Beamer Relationship Specialty Start Date End Date Jaden Crabtree DO [address] [place] [address] PCP - General Family Medicine 01/17/21 documented as of this encounter
--- OUTSIDE RECORDS SUMMARY | 2025-06-02 10:42 | XMS_ITS | Encounter Summary ---
Author Organization [facility] Address [id number] [address] [place] [address] Care Team Providers Care Bucket Turner Name Role Phone Jaden Crabtree DO Primary Care Provider [phone] Reason for Visit * Reason Comments Med Refill Encounter Details Date Type Department Care Team (Late st Contact Info) Description 10/16/2022 Refill [facility] [address] [place] [phone] Reena Cervantes APRN-CNP [address] [place] [address] [address] [place], [place] [id number] Parkinson's disease ([facility]) Social History Tobacco Use [...] Description 07/26/2025 10:00 AM EDT Office Visit [facility], A Department of [address] [place] [phone] Lyn Lawton MD [address] [place] [address] [address], [address] [place] [address] documented as of this encounter Goals Goal [...] documented as of this encounter Care Teams Bucket Turner Relationship Specialty Start Date End Date Jaden Crabtree DO [address] [place] [id number] PCP - General Family Medicine 01/17/21 documented as of this encounter
--- OUTSIDE RECORDS SUMMARY | 2025-06-02 10:42 | XMS_ITS | Encounter Summary ---
Author Organization [facility] Address [facility] [id number] [address] [place] [address] Care Team Providers Care Relay Shop Tester Name Role Phone Jaden Crabtree DO Primary Care Provider [phone] Encounter Details Date Type Department Care Team (Late st Contact Info) Description 06/27/2022 Telephone [facility] [address] [place] [phone] Yordan Zimmer, MARTI Social History Tobacco Use [...] Office Visit [facility], A Department of [facility] [address] [facility] [address] [place] [phone] Lyn Lawton MD [address] [place] [address] [address] [place] [address] documented as of this encounter Goals Goal [...] documented as of this encounter Care Teams Relay Shop Tester Relationship Specialty Start Date End Date Jaden Crabtree DO [address] [place] [address] PCP - General Family Medicine 01/17/21 documented as of this encounter
--- OUTSIDE RECORDS SUMMARY | 2025-06-02 10:42 | XMS_ITS | Encounter Summary ---
Author Organization [facility] tem Address [facility] [id number] [address] [place] [address] Care Team Providers Care Product Support Specialist Name Role Phone Jaden Crabtree DO Primary Care Provider [phone] Reason for Visit * Reason Onset Date Comments Reschd appt 12/19/2021 Encounter Details Date Type Department Care Team (Late st Contact Info) Description 12/19/2021 Telephone [facility] [address] [place] [phone] Carmen Espinal Reschd appt Social History Tobacco [...] Office Visit [facility], A Department of [address] [place] [phone] Lyn Lawton MD [address] [place] [address] 101, [address] [place] [address] documented as of this encounter Goals Goal [...] documented as of this encounter Care Teams Product Support Specialist Relationship Specialty Start Date End Date Jaden Crabtree DO [address] [place] [address] PCP - General Family Medicine 01/17/21 documented as of this encounter
[2025-06-02 10:45] VITALS: BP 134/88; PULSE 56; TEMP 36.6; O2SAT 98; BMI 31.6
--- OUTSIDE RECORDS SUMMARY | 2025-06-02 10:47 | XMS_ITS | CCD ---
Author Organization [facility] CliniSyde Care Team Providers Care General Internist And Physician Leader Name Role Phone RICCHETTI, SERGEY T Unavailable Unavailable RICCHETTI, SERGEY T Unavailable Unavailable RICCHETTI, SERGEY T Unavailable Unavailable RICCHETTI, SERGEY T Unavailable Unavailable REAGAN BLAIR Unavailable Unavailable SWATI SENIOR M Unavailable Unavailable NADEENSWATI MORSE Unavailable Unavailable LUISITO RIVERA Unavailable Unavailable UNKNOWN, [...] Unavailable ELLEN CRABTREE Primary Care Unavailable IVANA, FARIHAMI A Consulting Unavailable RANDA, SASIKALA T Consulting UnavailBALA Brito Consulting Unavailable TUCKER ROBBINS Consulting Unavailable AKSHAT, SELVON F Referring Unavailable ELLEN CRABTREE Primary Care Unavailable AKSHAT, SELVON F Referring Unavailable ELLEN CRABTREE R Primary Care Unavailable Leyda Ellen Unavailable Yifan Gama Unavailable Ellen Crabtree Primary Care Provider ELLEN CRABTREE Primary Care Unavailable SUSIE LOYA Admitting Unavailable PB REDMOND Attending Unavailable SUSIE LOYA Admitting Unavailable MELINDA NICK Attending Unavailable HOLIDAY, OUMOU Referring Unavailable LEYDA, ELLEN MCCOY Primary Care Unavailable ELLEN CRABTREE Primary Care Physician [phone] MISC, DR MYERS Consulting Unavailable MISC, DR MYERS Admitting Unavailable KUNS, DR HUGHES Primary Care Unavailable MISC, DR MYERS Attending Unavailable ZIJEFRYER, DR DON Hinkle Consulting Unavailable LEYDA ., [...] Unavailable KUNS, DR HUGHES Primary Care Unavailable ANCHORAGE, DR LIZETH Momin Consulting Unavailable NADERER, DR JOSE ALEJANDRO Crowe Consulting Unavailable CHRISTIAN, EN Consulting Unavailable DIAB ., MERCEDEZ Consulting Unavailable Kundavion, DO Hughes Primary Care Provider DO Bernice Shrestha Attending Provider [phone] IBARRA, Fidel R Admitting Unavailable IBARRA, Fidel [...] Attending Unavailable IBARRA, Fidel R Attending Unavailable LYN MACE Attending Unavailable IBARRA, Fidel R Attending Unavailable IBARRA, Fidel R Attending Unavailable Orzech, Pippa X Attending Unavailable IBARRA, Fidel R Admitting Unavailable IBARRA, Fidel R Attending Unavailable IBARRA, Fidel R Admitting Unavailable IBARRA, Fidel R Attending Unavailable COOK, Carl P Attending Unavailable COOK, Carl P Referring Unavailable IBARRA, Fidel R Attending Unavailable IBARRA, Fidel R Attending Unavailable Galea, Madeline Gomez Attending Unavailable LYN MACE Attending Unavailable Ellen Crabtree DO R Primary Care Provider BILL MACE Admitting Unavailab le RODRI, BILL Crum Attending Unavailab le Orzech, Pippa X Attending Unavailable RODRI, BILL Crum Attending Unavailab le RODRI, BILL Crum Attending Unavailab le RODRI, BILL Crum Attending Unavailab le RODRI, BILL Crum Attending Unavailab le Ellen Crabtree DO Primary Care Provider Ellen Crabtree DO Primary Care Provider [phone] Benitez Ortega DO Emergency Provider [phone] Ellen Crabtree DO Attending Provider [phone] Heidy Marin MD Referring Provider [phone] Ellen Crabtree DO Primary Care Provider UnavailMercedez Botello MD Attending Provider Ellen Crabtree DO Primary Care Provider [phone] Ellen Crabtree DO Attending Provider [phone] Heidy Marin MD Referring Provider [phone] Mercedez Cramer MD Attending Provider LYN MACE Attending Unavailable LYN MACE Attending Unavailable LYN MACE Attending Unavailable LYN MACE Attending Unavailable LYN MACE Admitting Unavailable Romel Leonardo MD Attending Provider Mercedez Cramer Admitting Unavailable Mercedez Cramer Attending Unavailable Romel Leonardo Admitting Unavailable Romel Leonardo Attending Unavailable Ellen Crabtree Primary Care Unavailable Ellen Crabtree Admitting Unavailable Ellen Crabtree Attending Unavailable Tomas, Mohamed F Referring Unavailable Kuns, Ellen Primary Care Unavailable Benitez Ortega A Attending Unavailable KeBenitez martinez A Admitting Unavailable Kuns, Ellen Primary Care Unavailable Unavailable Primary Care Provider Unavailfox e GWENDOLYN BANKSNIFER L Attending Unavailable KUNS, ELLEN R Referring Unavailable KUNS, ELLEN R Primary Care Unavailable SAMIRA BOWDEN Attending Unavailable KUNS, ELLEN R Referring Unavailable KUNS, ELLEN R Primary Care Unavailable TOMAS, MOHAMED F Attending Unavailable KUNS, ELLEN R Referring Unavailable KUNS, ELLEN R Primary Care Unavailable AMSDELL, LYN L Referring Unavailable KUNS, ELLEN R Primary Care Unavailable AMSDELL, LYN L Referring Unavailable KUNS, ELLEN R Primary Care Unavailable LORA RAMOS Attending Unavailable CHERELLE BOTELLO Attending Unavailable RODRI, LYN E Attending Unavailable RODRI, LYN E Attending Unavailable Michelle Mahoney Attending Unavailable RODRI, LYN E Attending Unavailable RODRI, YLN E Attending Unavailable RODRI, LYN E Attending Unavailable RODRI, LYN E Attending Unavailable RODRI, LYN E Attending Unavailable Allergies Allergy Classification Reported Allergen(s) Allergy Type Date of Onset Reaction(s) Facility (20 sources) celecoxib; Translations: [CELECOXIB] Drug Allergy 06-04-20 17 Rash, Hives, GI Upset, Weal (disorder) [facility] Repository (20 sources) clonazePAM; Translations: [CLONAZEPAM] Drug Allergy 06-04-20 17 Itching, Shortness Of Breath, Dyspnea (finding) [facility] Repository (20 sources) levoFLOXacin; Translations: [LEVOFLOXACIN] Drug Allergy 01-30-20 10 Hives, Shortness Of Breath, Dyspnea (finding) [facility] Repository (9 sources) moxifloxacin; Translations: [MOXIFLOXACIN HCL] Drug Allergy 07-20-20 06 Rash, Hives, Itching, Shortness of Breath [facility] Repository (20 sources) ERYTHROMYCIN BASE; Translations: [ERYTHROMYCIN BASE] Propensity to adverse reactions to drug (disorder) 03-06-20 04 Hives, Shortness of Breath [facility] Repository (7 sources) celecoxib; Translations: [CeleBREX] Drug Allergy 06-25-20 12 [facility] Repository (1 source) erythromycin Drug Allergy 06-25-20 12 [facility] Repository (20 sources) levoFLOXacin Drug Allergy 06-25-20 12 Unknown [facility] Repository (7 sources) moxifloxacin; Translations: [Avelox] Drug Allergy 06-25-20 12 [facility] Repository (5 sources) celecoxib; Translations: [CeleBREX CAPS] Drug Allergy [place] [address] DO Work Phone: (5 sources) clonazePAM; Translations: [KlonoPIN TABS] Drug Allergy [place] [address] DO Work Phone: (5 sources) levoFLOXacin; Translations: [Levaquin] Drug Allergy [place] [address] DO Work Phone: (20 sources) moxifloxacin; Translations: [Avelox] Drug Allergy 07-19-20 06 Hives, Shortness Of Breath, Dyspnea (finding), Eruption of skin (disorder), Itching (finding), Urticaria (disorder), Weal (disorder), Itching, Rash [facility] (5 sources) Erythromycin Derivatives; Translations: [Erythromycin Derivatives] Allergy to drug (finding) [place] [address] DO Work Phone: (2 sources) celecoxib; Translations: [Celebrex] Drug Allergy [facility] (7 sources) clonazePAM; Translations: [Klonopin] Drug Allergy [facility] Repository (20 sources) Erythromycin; Translations: [erythromycin] Drug Allergy 01-18-20 21 Itching, Nausea And Vomiting, Nausea (finding) [facility] Other (2 sources) levoFLOXacin; Translations: [Levaquin] Drug Allergy [facility] (2 sources) moxifloxacin; Translations: [Avelox] Drug Allergy [facility] (20 sources) pimavanserin; Translations: [PIMAVANSERIN] Drug Allergy 08-23-20 20 [facility] (19 sources) moxifloxacin; Translations: [moxifloxacin] Drug Allergy 07-19-20 Unknown Reaction, [facility] Medications Current Medications Medication Drug Class(es) Dates Sig (Normalized) Sig (Original) acarbose 25 mg oral tablet (20 sources) alpha-Glucosidase Inhibitor Start: 02-07-2022 take 25 mg by mouth three times daily at mealtime 25 mg, Oral, 3 TIMES DAILY WITH MEALS, First dose on Thu02/07/22 at 1700, Until Discontinued Start: 01-13-2019 End: 07-25-2024 acarbose 25 mg oral tablet R efills(s) 0 Start Date: 01/16/23 Status: Ordered Repeat number: 1 Start: 12-29-2007 End: 12-06-2022 acarbose(PRECOSE 25 MG TAB) Indications: Hypoglycemia, unspecified , Obesity, unspecified Take one(1) tablet three(3) times daily. 1 month supply 3 12/29/2007 12/06/2022 Discontinued Comment on above: Take one(1) tablet t hree(3) times daily. acetaminophen 325 mg oral tablet (20 sources) Start: End: take 2 tablets by mouth every six [...] 12/06/2022 Active Start: 03-07-2022 End: 03-23-2023 take 1 tablet by mouth every four hours as needed for pain Acetaminophen 500 mg Tablet Discontinued 500 MG PO Q4H as needed for Pain 0 March 07, 2022 12:00am March 23, [...] every six hours as needed for pain Acetaminophen (Tylenol) 325 mg Tablet Discontinued 325 MG PO Q6H as needed for Pain February 17, 2019 12:00am March 07, 2022 9:03am Tylenol 325 mg c apsule take 1 capsule by oral route As needed unsure of dose Comment on above: 2 tablets by ORAL/FE EDING TUBE route three times daily. acetaminophen 500 mg / caffeine 65 mg oral tablet (20 sources) Central Nervous System Stimulant, Methylxanthine Start: 02-20-20 take 2 tablets by mouth every six hours as needed acetaminophen-caff eine (EXCEDRIN TENSION HEADACHE) 500-65 mg tablet Take 2 tablets by mouth every 6 (six) hours as needed (Migraine). 90 tablet 02/19/2021 Active [id number] 200 actuat albuterol 0.09 mg/actuat metered dose inhaler (20 sources) beta2-Adrenergic Agonist Start: 12-14-19 25 Albuterol Sulfate (Ventolin Hfa) 90 mcg/actuation HFA aerosol inhaler Active 1 INH INHALATION Every 6 hours as needed for shortness of breath or wheezing 8.5 December 14, 2024 1:00am Start: 01-06-2024 End: 02-11-2024 take 3 mL by inhalation four times daily as needed Albuterol Sulfate 2.5 mg /3 mL (0.083 %) solution for nebulization Discontinued MG INHALATION January 06, 2024 12:00am February 11, 2024 8:17am [employer] mL prefilled vial Inhalation qid prn; Note: Source Status: Taking; Refills: 1; Provider: Leyda Hinkle Start: 03-23-2023 End: 04-19-2023 take 2.5 mg by inhalation four times daily as needed Albuterol Sulfate 2.5 mg /3 mL (0.083 %) Solution For Nebulization Discontinued 2.5 MG INHALATION Four times daily as needed for Shortness Of Breath March 23, 2023 12:00am April 19, 2023 [...] 1.25 mg by inhalation four times daily as needed Albuterol Sulfate 2.5 mg /3 mL (0.083 %) Solution For Nebulization Discontinued 1.25 MG INHALATION Four times daily as needed for Shortness Of Breath February 17, 2019 12:00am March 07, 2022 [...] hours as needed for Wheezing/Shortness of Breath. amoxicillin 875 mg / clavulanate 125 mg oral tablet (1 source) Penicillin-class Antibacterial Start: 023 take 1 tablet by mouth once daily Augmentin 875 mg oral tablet = 1 tab(s), Oral, Daily, # 30 tab(s), Refills(s) 0, Pharmacy: [facility] 1155, 175, cm, 01/16/23 10:13:00 EDT, Height/Length Dosing, 92, kg, 01/16/23 10:13:00 EDT, Weight Dosing Start Date: 01/20/23 Status: Ordered atorvastatin 10 mg oral tablet (20 sources) HMG-CoA Reductase Inhibitor Start: 017 End: 024 atorvastatin 10 mg Tab Refills(s) 0 Start Date: 01/16/23 Status: Ordered Repeat number: 1 Comment on above: Take 10 mg by mouth once daily. benzonatate 100 mg oral capsule (20 sources) Non-narcotic Antitussive Start: 023 End: 025 benzonatate 100 mg Cap Refills(s) 0 Start Date: 01/16/23 Status: Ordered Repeat number: 1 Comment on above: Take 1 capsule by [facility] three times daily as needed for cough. augmented betamethasone 0.5 mg/ml topical cream (20 sources) Corticosteroid Start: 021 betamethasone, augmented, (DIPROLENE) 0.05 % cream Apply 1 application topically daily. 30 g 02/19/2021 Active Start: 05-26-2017 End: 11-20-2022 Betamethasone, Augmented (Di prolene (Augmented)) 0.05 % Ointment Discontinued 1 APPLIC TOPICAL Daily at bedtime February 17, 2019 12:00am August 29, 2021 10:34am Comment on above: APPLY TO THE AFFECTE D AREA(S) ONCE DAILY carbidopa 25 mg / levodopa 100 mg oral tablet (20 sources) Aromatic Amino Acid Decarboxylation Inhibitor, Aromatic Amino Acid Start: 01-06-2024 Carbidopa-Levodopa 25-100 mg tablet extended release Active 1 TAB PO Five times daily January 06, 2024 12:00am 1 tab @2am, 2 tabs @6am, 2 tabs@ 10 am , 1 tab @2pm, 1 tab @6pm, 1 tab @10pm orally as directed; Note: Source Status: Takingused with sinemet IR Start: 01-06-2024 End: 01-30-2025 Carbidopa-Levodopa 25-100 mg tablet Discontinued 1 TAB PO Five times daily January 06, 2024 12:00am January 30, 2025 9:44am [employer] tabs @ 6am, 2 tabs @ 10am, 1 tab @ 2 pm, 1 tab @6pm Oral as directed; Note: Source Status: Taking do not eat an hour prior or after taking; Start: 08-07-2023 End: 08-31-2024 carbidopa-levodopa (SINEMET CR) 25-100 mg per CR tablet Indications: Parkinson's disease (CMS-HCC) TAKE 1 TABLET BY MOUTH AT 2AM, 2 TABLETS AT 6AM AND 10AM, 1 TABLET AT 2PM, 6PM, AND 10PM. TAKE WITH SINEMET IR 240 tablet 11 08/31/2024 Active Start: 01-16-2023 End: 01-06-2024 carbidopa-levodopa 25 mg-100 mg ER Tab Refill(s) 0 Start Date: 01/16/23 Status: Ordered Repeat number: 1 Start: 11-04-2022 take 2 tablets by mo [...] 2 tablets by mouth twice daily Carbidopa-Levodopa 25-100 mg Tablet Discontinued 2 TAB PO BID@06,1000 February 18, 2022 12:00am January 06, 2024 4:08pm Start: 02-13-2022 End: 11-23-2024 carbidopa-levodopa (SINEMET) 25-100 mg per tablet Indications: Parkinson's disease (CMS-HCC) TAKE 2 TABLETS BY MOUTH AT 6AM AND 10AM, 1 TAB AT 2PM AND 6PM. AVOID PROTEIN 1 HOUR BEFORE OR AFTER EACH DOSE. TAKE ALONG WITH SINEMET CR. 180 tablet 11 11/23/2024 Active Start: 02-07-2022 carbidopa-levo dopa (SINEMET CR) 25-100 MG per extended release tablet 1 tablet Start: 07-28-2019 take 1.5 tablets by mouth four times daily carbidopa-levodopa (SINEMET) 25-100 mg per tablet Indications: PD (Parkinson's disease) ([facility]) Take 1.5 tablets by mouth four times daily. 540 tablet 1 07/28/2019 Active Start: 02-17-2019 End: 01-06-2024 Carbidopa-Levodopa 25-100 mg tablet Discontinued 1 TAB PO ,February 17, 2019 12:00am January 06, 2024 4:08pm [...] times daily. Take 2 tablets by mo [facility] at 6 am, 2 tablets at 10 am, and 1 tablet at 2 pm, 6 pm, 10 pm and 2 am. cefdinir 300 mg oral capsule (11 sources) Cephalosporin Antibacterial Start: 02-23-2024 End: 03-04-2024 take 1 capsule by mouth every twelve hours cefdinir 300 mg Cap 300 mg = 1 cap(s), Oral, q12hr, X 10 day(s), # 20 cap(s), Refills(s) 0, Pharmacy: [facility]5, 175, cm, 03/20/23 9:07:00 EDT, Height/Length Dosing, 92, kg, 03/20/23 9:07:00 EDT, Weight Dosing Start Date: 02/23/24 Stop Date: 03/04/24 Status: Ordered Start: 06-11-2023 End: 06-21-2023 take 1 capsule by mouth every twelve hours cefdinir 300 mg Cap 300 mg = 1 cap(s), Oral, q12hr, X 10 day(s), # 20 cap(s), Refills(s) 0, Pharmacy: [facility], 175, cm, 03/20/23 9:07:00 EDT, Height/Length Dosing, 92, kg, 03/20/23 9:07:00 EDT, Weight Dosing Start Date: 06/11/23 Stop Date: 06/21/23 Status: Ordered take 1 capsule by [facility] every twelve hours Cefdinir 300 MG 1 [...] 90 days Jul, Active Cpap (Continuous Positive rway Pressure) (4 sources) Start: 01-06-2024 Cpap (Continuo us Positive Airway Pressure) Active 0 .Route January 06, 2024 12:00am As directed Cpap (Continuous Positive rway Pressure) unit (4 sources) Start: 01-06-2024 Cpap (Continuo us Positive Airway Pressure) unit Active 0 .Route January 06, 2024 12:00am As directed Start: 01-06-2024 Cpap (Continuo us Positive Airway Pressure) unit Active 0 .Route January 05, 2024 11:00pm As directed CPAP Machine (20 sources) CPAP Machine Act av diclofenac sodium 75 mg delayed release oral tablet (20 sources) Nonsteroidal Anti-inflammatory Drug Start: 02-17-2019 End: 06-22-2024 take 1 mg by mouth twice daily diclofenac sodium 75 mg Oral EC Tab mg tab(s), Oral, BID, Refills(s) 0 Start Date: 01/16/23 Status: Ordered Repeat number: 1 diclofenac sodiu m oral Comment on above: diclofenac sodium 75 mg tablet,delayed release Take 1 tablet twice a day by oral route for 90 days. docusate sodium 100 mg oral capsule (20 sources) Start: 06-27-2021 End: 04-19-2023 take 1 capsule by mouth once daily as needed docusate sodium (COLACE) 100 mg capsule Take 1 capsule (100 mg total) by mouth daily as needed. 06/27/2021 Active Start: 05-04-2020 End: 12-06-2022 Docusate Sodium Discontinued 100 MG PO As Directed August 29, 2021 1:00am March 07, 2022 9:03am Comment on above: Take 1 capsule by [facility] twice daily. doxycycline hyclate 100 mg oral capsule (2 sources) Tetracycline-class Drug Start: 05-25-20 End: 06-04-20 take 1 capsule by mouth twice daily doxycycline hyclate 100 mg Cap 100 mg = 1 cap(s), Oral, BID, X 10 day(s), # 20 cap(s), Refills(s) 0, Pharmacy: [facility] 1155, 175, cm, 03/20/23 9:07:00 EDT, Height/Length Dosing, 92, kg, 03/20/23 9:07:00 EDT, Weight Dosing Start Date: 05/25/23 Stop Date: 06/04/23 Status: Ordered DULoxetine 60 mg delayed release oral capsule (20 sources) Serotonin and Norepinephrine Reuptake Inhibitor Start: 04-28-20 End: 08-10-20 duloxetine 60 mg oral delayed release capsule Refills(s) 0 Start Date: 01/16/23 Status: Ordered Repeat number: 1 take 1 capsule by mouth twice da giuliano Cymbalta 20 mg capsule,delayed release take 1 capsule (20 mg) by oral route 2 times per day unsure of dose Comment on above: Take 1 capsule by [facility] once daily. ezetimibe 10 mg oral tablet (20 sources) Dietary Cholesterol Absorption Inhibitor Start: 09-17-20 End: 08-10-20 ezetimibe 10 mg Tab Refills(s) 0 Start Date: 01/16/23 Status: Ordered Repeat number: 1 Comment on above: Take 10 mg by mouth once daily. fludrocortisone acetate 0.1 mg oral tablet (20 sources) Start: 04-19-20 End: 01-06-20 take 0.2 mg by mouth once daily Fludrocortisone Discontinued 0.2 MG PO Daily 60 April 19, 2023 12:00am January 06, 2024 4:09pm Start: 02-23-2023 End: 07-14-2024 fludrocortisone (FLORINEF) 0 .1 mg tablet Indications: 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 ([facility]) 2 tabs daily as directed 180 tablet 3 07/15/2024 Active Start: 12-06-2022 End: 01-06-2024 fludrocortisone 0.1 mg Tab R efills(s) 0 Start Date: 01/16/23 Status: Ordered Repeat number: 1 Comment on above: Take 1 tablet by brendan once daily. fluticasone propionate 0.05 mg/actuat metered dose nasal spray (16 sources) Corticosteroid Start: 01-06-2024 Fluticasone Propionate 50 mcg/actuation spray,suspension Active 1 SPRAY INTRANASAL Daily January 06, [...] insulin lispro (HUMALOG) injection vial 0-3 Units magnesium citrate 58.2 mg/ml oral solution (1 source) Start: 03-14-2025 End: 03-14-2025 take 148 mL by mouth once magnesium citrate (CITROMA) solution Indications: Constipation, unspecified constipation type Take 148 mL by mouth once for 1 dose. 148 mL 03/14/2025 03/14/2025 Active metFORMIN hydrochloride 500 mg oral tablet (20 sources) Biguanide Start: 06-21-2024 take 1 tablet by mouth once daily Metformin 500 mg tablet Active 500 MG PO Daily June 21, 2024 12:00am Start: 02-07-2022 End: 03-23-2023 take 1 tablet by mouth twice daily at mealtime Metformin 500 mg Tablet Discontinued 500 MG PO Twice daily with meals 60 March 07, 2022 12:00am March 23, 2023 1:58pm Start: 02-17-2019 End: 11-20-2022 take 1 tablet by mouth twice daily at mealtime Metformin 1,000 mg Tablet Discontinued 1000 MG PO Twice daily with meals February 17, 2019 12:00am March 07, 2022 9:03am take 1 tablet by brendan th every twelve hours at mealtime metFORMIN HCl - 500 MG Oral Tablet TAKE 1 TABLET EVERY 12 HOURS WITH FOOD. Quantity: 0 Refills: 0 Ordered: 16-Aug-2021 DO Active Comment on above: Take 1,000 mg by brendan th twice daily with meals. methenamine hippurate 1000 mg oral tablet (1 source) Start: 01-30-2025 Methenamine Hippurate 1 gram tablet Active 1 GM PO Twice daily 60 January 30, 2025 12:00am To begin after 1-2 weeks of OTC Vit C midodrine hydrochloride 5 mg oral tablet (20 sources) alpha-Adrenergic Agonist Start: 03-24-2025 midodrine (PROAMATINE) 5 mg tablet Indications: Orthostasis Check blood pressure at 8 am, 12 pm and 6 pm. If top number is 110 or lower take 3 tablets (15 mg). If top number 111-149 take 2 tablets (10 mg) if top number is 150 or higher DO NOT TAKE. 810 tablet 3 03/24/2025 Active Start: 09-30-2024 take 3 tablets by mo uth in the morning, then take 2 tablets by mouth in the evening, then take 2 tablets by mouth in the evening midodrine (PROAMATINE) 5 mg tablet Indications: Orthostasis Take 3 tabs by mouth at 8 am, and take 2 tabs at 12 pm and 2 tabs at 6 pm, 630 tablet 3 09/30/2024 Active Start: 01-06-2024 End: 02-10-2024 Midodrine Active 5 MG PO Fou r times daily February 10, 2024 1:14pm [employer] mg q am, 10 mg afternoon, 10mg evening Orally tid; Start: 09-02-2023 End: 09-26-2024 Midodrine 5 mg tablet Discon tinued 5 MG PO January 06, 2024 12:00am February 10, 2024 1:15pm [employer] mg q am, 10 mg afternoon, 10mg evening Orally tid; Start: 03-23-2023 End: 01-06-2024 Midodrine 5 mg tablet Discon tinued 10 MG PO 14,March 23, 2023 2:15pm January 06, 2024 4:09pm Start: 03-23-2023 End: 01-06-2024 Midodrine Discontinued 10 MG PO ,March 23, 2023 2:15pm January 06, 2024 4:09pm Start: 03-23-2023 End: 01-06-2024 take 1 dose by mouth once daily at bedtime Midodrine Discontinued 15 MG PO March 23, 2023 12:00am January 06, 2024 4:09pm do not give last dose of day after 6PM or within 4 hrs of bedtime Start: 01-16-2023 End: 01-06-2024 midodrine 5 mg Tab Refills(s ) 0 Start Date: 01/16/23 Status: Ordered Repeat number: 1 Start: 12-06-2022 take 1 tablet by brendan once daily midodrine (PROAMATINE) 10 mg tablet Take 1 tablet by mouth once daily. Take daily at 2:00pm 7 tablet 0 12/06/2022 Active Start: 12-06-2022 take 3 tablets by mo [facility] once daily midodrine (PROAMITINE) 5 mg tablet Take 3 tablets by mouth once daily. Take at 7:00am 21 tablet 0 12/06/2022 Active Start: 03-07-2022 End: 03-23-2023 take 1 tablet by mouth three times daily Midodrine 5 mg Tablet Discontinued 5 MG PO TID@0600,1200,1700 90 30 March 07, 2022 12:00am March 23, 2023 2:16pm Start: 02-10-2022 midodrine (PRO AMATINE) tablet 15 [...] of bedtime. Start: 08-16-2021 End: 03-07-2022 take 1 tablet by mouth twice daily Midodrine 5 mg Tablet Discontinued 5 MG PO Twice daily August 29, 2021 1:00am March 07, 2022 9:03am Midodrine HCl 5 MG 15 mg q am, 10 mg afternoon, 10mg evening Orally tid 15 mg Active take 15 mg by mouth three times daily Midodrine HCl 5 MG 15 mg Orally tid 15 mg Active take 3 tablets by mo uth every twelve hours Midodrine HCl 5 MG 3 tablet Orally BID 15 mg Active midodrine 2.5 mg tablet unsure of dose Comment on above: Take 5 mg by mouth t wice daily. Take 3 tablets by mo uth once daily. Take at 7:00am Take 1 tablet by brendan th once daily. Take daily at 2:00pm Take 1 tablet by brendan th once daily. Take daily at 8:00pm Minerin Creme - (16 sources) Minerin Creme - as directed Externally Active Miscellaneous Medical Supply (4 sources) Start: 01-06-2024 Miscellaneous Medical Supply Active 0 .Route January 06, 2024 12:00am As directed Start: 01-06-2024 Miscellaneous Medical Supply Active 0 .ROUTE January 06, 2024 12:00am As directed Misc[facility] Medical Supply misc (4 sources) Start: 01-06-2024 Miscellaneous Medical Supply misc Active 0 .Route January 06, 2024 12:00am As directed Start: 01-06-2024 Miscellaneous Medical Supply misc Active 0 .Route January 05, 2024 11:00pm As directed montelukast 10 mg oral tablet (20 sources) Leukotriene Receptor Antagonist Start: 12-06-2022 End: 01-13-2025 montelukast 10 mg Tab Refills(s) 0 Start Date: 01/16/23 Status: Ordered Repeat number: 1 Comment on above: Take 1 tablet by brendan th once daily. 1 ml morphine sulfate 2 mg/ml cartridge (1 source) Opioid Agonist Start: 02-07-2022 morphine (PF) injection 2 mg multivitamin capsule (20 sources) take 1 capsule by mouth in the morning multivitamin capsule Take 1 capsule by mouth in the morning. Active take 1 capsule by mouth in the m orning multivitamin capsule Take 1 capsule by mouth in the morning. 0 Active nitrofurantoin, macrocrystals 25 mg / nitrofurantoin, monohydrate 75 mg oral capsule (10 sources) Nitrofuran Antibacterial Start: 07-22-2023 take 1 capsule by mouth twice daily Macrobid 100 mg Cap 100 mg = 1 cap(s), Oral, BID, # 5 cap(s), Refills(s) 0, Pharmacy: [facility], 175, cm, 03/20/23 9:07:00 EDT, Height/Length Dosing, 92, kg, 03/20/23 9:07:00 EDT, Weight Dosing Start Date: 07/22/23 Status: Ordered Start: 06-11-2023 End: 06-21-2023 take 1 capsule by mouth twice daily Macrobid 100 mg Cap 100 mg = 1 cap(s), Oral, BID, X 10 day(s), # 20 cap(s), Refills(s) 0, Pharmacy: [facility], 175, cm, 03/20/23 9:07:00 EDT, Height/Length [...] oral tablet (20 sources) Start: 01-06-2024 End: 01-30-2025 take 1 tablet by mouth in the morning potassium citrate (UROCIT-K) 15 mEq tablet extended release Take 1 tablet (15 mEq total) by mouth in the morning and 1 tablet (15 mEq total) before bedtime. 01/06/2024 Active Start: 09-22-2023 take 1 tablet by brendan th every twelve hours Potassium Citrate ER 15 MEQ (1620 MG) 1 tablet with meals Orally Twice a day for 90 days Sep, Active Start: 02-17-2019 End: 03-23-2023 Potassium Citrate 15 mEq Tab let Extended Release Discontinued 15 MEQ PO As Directed March 07, [...] Take 1 twice daily Start: 02-17-2019 End: 01-17-2025 take 1 mg by mouth twice daily pregabalin 300 mg Cap m g cap(s), Oral, BID, Refills(s) 0 Start Date: 01/16/23 Status: Ordered Repeat number: 1 Comment on above: Take 300 mg by mouth twice daily. pyridostigmine bromide 60 mg oral tablet (4 sources) Start: 025 take 0.5-1 tablets by mouth three times daily pyridostigmine (MESTINON) 60 mg tablet Indications: Dysautonomia orthostatic hypotension syndrome Take half to 1 tab PO TID as directed 90 tablet 5 03/31/2025 Active sulfamethoxazole 400 mg / trimethoprim 80 mg oral tablet (20 sources) Dihydrofolate Reductase Inhibitor Antibacterial, Sulfonamide Antimicrobial Start: 025 take 1 tablet by mouth three times weekly Sulfamethoxazole-Trim ethoprim 400-80 mg tablet Active 1 TAB PO 3 Times a week January 30, 2025 12:00am Start: 12-27-2024 End: 06-25-2025 Bactrim 400 mg-80 mg Tab 1 t ab(s), Oral, MonWedFri for 90 day(s), 39 tab(s), Refill(s) 1, [facility], 177, cm, 03/15/24 11:26:00 EDT, Height/Length Dosing, 95.3, kg, 03/15/24 11:26:00 EDT, Weight Dosing Start Date: 12/27/24 Stop Date: 06/25/25 Status: Ordered Quantity: 39.0 Unit: tab(s) Repeat number: 2 Start: 06-23-2024 take 1 tablet by brendan th once in the morning sulfamethoxazole-trimethoprim (BACTRIM DS) 800-160 mg per tablet Take 1 tablet by mouth in the morning and 1 tablet before bedtime. Taking Thursday, Thursday, Thursday. 06/23/2024 Active Start: 06-21-2024 End: 01-30-2025 take 1 tablet by mouth twice daily Sulfamethoxazole-Trimethoprim 800-160 mg tablet Discontinued 1 TAB PO Twice daily June 21, 2024 12:00am January 30, 2025 9:51am Start: 06-21-2024 take 1 tablet by brendan th twice daily Sulfamethoxazole-Trimethoprim 800-160 mg tablet Active 1 TAB PO Twice daily June 21, 2024 12:00am Start: 06-21-2024 take 1 tablet by brendan th twice daily Sulfamethoxazole-Trimethoprim 800-160 mg tablet Active 1 TAB PO Twice daily June 20, 2024 11:00pm Start: 06-21-2024 take 1 tablet by brendan th twice daily Sulfamethoxazole-Trimethoprim Active 1 TAB PO Twice daily June 21, 2024 12:00am SUMAtriptan 50 mg oral tablet (20 sources) Serotonin-1b and Serotonin-1d Receptor Agonist Start: 09-30-2024 take 1 tablet by mouth once as needed SUMAtriptan (IMITREX) 50 mg tablet Indications: Migraine without aura and without status migrainosus, not intractable Take 1 tablet (50 mg total) by mouth once as needed for migraine for up to 180 doses. May repeat in 2 hours if unresolved. Do not exceed 200 mg in 24 hours. 15 tablet 11 09/30/2024 Active Start: 06-21-2024 End: 01-30-2025 Sumatriptan Succinate 50 mg tablet Discontinued MG PO June 21, 2024 12:00am January 30, 2025 2:11pm Start: 06-21-2024 Sumatriptan Villegas ccinate Active MG PO June 21, 2024 12:00am Start: 02-15-2024 End: 09-25-2024 take 1 tablet by mouth once as needed SUMAtriptan (IMITREX) 50 mg tablet Indications: Migraine without aura and without status migrainosus, not intractable Take 1 tablet (50 mg total) by mouth once as needed for migraine for up to 15 doses. May repeat in 2 hours if unresolved. Do not exceed 200 mg in 24 hours. 15 tablet 05/25/2024 09/25/2024 Discontinued (Reorder) Start: 09-03-2023 End: 02-09-2024 take 1 tablet by mouth once as needed SUMAtriptan (IMITREX) 50 mg tablet Indications: Migraine without aura and without status migrainosus, not intractable Take 1 tablet (50 mg total) by mouth once as needed for migraine for up to 15 doses. May repeat in 2 hours if unresolved. Do not exceed 200 mg in 24 hours. 15 tablet 09/03/2023 02/09/2024 Discontinued (Reorder) Start: 02-18-2022 End: 03-23-2023 Sumatriptan Succinate (Imitr ex) 50 mg Tablet Discontinued 50 MG PO As Directed as needed for Migraine Headache February 18, 2022 12:00am March 23, 2023 1:58pm Start: 02-07-2022 take 1 dose by mouth once 50 m g, Oral, ONCE PRN, 1 dose, Starting on Thu02/07/22 at 1617, Until Thu02/07/22 at 2121, Migraine Syringe (Disposable) (4 sources) Start: 01-06-2024 Syringe (Dispo sable) Active 0 .Route January 06, 2024 12:00am As directed Start: 01-06-2024 Syringe (Dispo sable) Active 0 .ROUTE January 06, 2024 12:00am As directed Syringe (Disposable) 3 mL syringe (4 sources) Start: 01-06-2024 Syringe (Dispo sable) 3 mL syringe Active 0 .Route January 06, 2024 12:00am As directed Start: 01-06-2024 Syringe (Dispo sable) 3 mL syringe Active 0 .Route January 05, 2024 11:00pm As directed tobramycin 3 mg/ml ophthalmic solution (4 sources) Aminoglycoside Antibacterial Start: 08-09-2024 take 0.3 drop(s) into the eye(s) every four hours Tobramycin 0.3 % drops Active 2 DROPS EYE-BOTH Every 4 hours 02 22August 09, 2024 12:00am 24 hr tolterodine tartrate 4 mg extended release oral capsule (20 sources) Cholinergic Muscarinic Antagonist Start: 07-25-2024 take 1 capsule by mouth once daily tolterodine 4 mg Cap-ER 4 mg = 1 cap(s), Oral, Daily, # 30 cap(s), Refills(s) 11, Pharmacy: [facility], 177, cm, 03/15/24 11:26:00 EDT, Height/Length Dosing, 95.3, kg, 03/15/24 11:26:00 EDT, Weight Dosing Start Date: 07/25/24 Status: Ordered Quantity: 30.0 Unit: cap(s) Repeat number: 12 Start: 08-29-2021 End: 01-06-2024 take 1 capsule by mouth once daily Tolterodine 4 mg capsule,extended release 24hr Active 4 MG PO Daily January 06, 2024 12:00am take 1 capsule by [facility] every twenty-four hours in the morning tolterodine LA (DETROL LA) 4 mg 24 hr capsule Take 1 capsule (4 mg total) by mouth in the morning. Active Detrol LA 2 mg c apsule,extended release [...] Start: 11-19-2021 take 1 capsule by mo [facility] once daily topiramate oral capsule,sprinkle,ER 24hr 100 mg 11/19/2021 take 1 capsule (100 mg) by oral route once daily Start: 02-07-2019 End: 11-20-2022 take 1 tablet by mouth twice daily Topiramate 200 mg tablet Discontinued 200 MG PO Twice daily February 17, 2019 12:00am August 29, 2021 10:38am Start: 07-07-2018 End: 06-07-2024 take 1 mg by mouth twice daily topiramate 100 mg Tab mg tab(s), Oral, BID, Refills(s) 0 Start Date: 01/16/23 Status: Ordered Repeat number: 1 Comment on above: Take 1 tablet by brendan th twice daily. traMADol hydrochloride 50 mg oral tablet (20 sources) Opioid Agonist Start: take 1 tablet by mouth every six hours as needed for pain traMADoL (ULTRAM) 50 mg tablet Indications: Spinal stenosis of lumbar region with neurogenic claudication Take 1 tablet (50 mg total) by mouth every 6 (six) hours as needed for pain. 120 tablet 5 04/06/2025 Active Start: 09-30-2024 End: 04-04-2025 take 1 tablet by mouth every six hours as needed for pain traMADoL (ULTRAM) 50 mg tablet Indications: Spinal stenosis of lumbar region with neurogenic claudication Take 1 tablet (50 mg total) by mouth every 6 (six) hours as needed for pain. 120 tablet 5 09/30/2024 04/04/2025 Discontinued (Reorder) Start: 08-03-2024 End: 09-25-2024 take 1 tablet by mouth every six hours as needed for pain traMADoL (ULTRAM) 50 mg tablet Indications: Spinal stenosis of lumbar region with neurogenic claudication Take 1 tablet (50 mg total) by mouth every 6 (six) hours as needed for pain. 120 tablet 5 08/03/2024 09/25/2024 Discontinued (Reorder) Start: 04-13-2024 End: 07-31-2024 take 1 tablet by mouth every six hours as needed for pain traMADoL (ULTRAM) 50 mg tablet Indications: Spinal stenosis of lumbar region with neurogenic claudication Take 1 tablet (50 mg total) by mouth every 6 (six) hours as needed for pain. 120 tablet 3 04/13/2024 07/31/2024 Discontinued (Reorder) Start: 01-06-2024 End: 02-10-2024 take 1 tablet by mouth twice daily as needed for pain Tramadol 50 mg tablet Active 50 MG PO Twice daily as needed for pain 60 February 10, 2024 1:40pm Start: 11-16-2023 [...] tablet 50 mg Start: 02-17-2019 End: 10-14-2019 take 1 tablet by mouth every twenty-four hours as needed for pain Tramadol 100 mg tablet extended release 24 hr Discontinued 100 MG PO As Directed as needed for Pain February 17, 2019 12:00am October 14, 2019 11:27am trifluridine 10 mg/ml ophthalmic solution (4 sources) Nucleoside Analog Antiviral, Nucleoside Metabolic Inhibitor Start: 10-03-2024 Trifluridine 1 % robbin ps Active 1 DROPS EYE-LEFT Every 2 hours 7.5 October 03, 2024 1:00am administer 9 doses per day while awake zinc oxide 0.2 mg/mg topical ointment (20 sources) Start: 01-06-2024 Zinc Oxide 20 % ointment Active 1 APPLIC TOPICAL As Directed January 06, 2024 12:00am Start: 04-19-2023 End: 01-06-2024 Zinc Oxide 20 % Ointment Dis continued 1 APPLIC TOPICAL Three times daily 11 17April 19, 2023 12:00am January 06, 2024 4:10pm zinc oxide 20 % ointment Apply 1 Application topically as needed. Active Zinc Oxide 20 % as directed Externally Active Zinc Oxide 20 % as directed Externally Active Completed/Discontinued Medications Medication Drug Class(es) Dates Sig (Normalized) Sig (Original) acetaminophen 325 mg / oxyCODONE hydrochloride 5 mg oral tablet (10 sources) Opioid Agonist Start: 03-07-2022 End: 03-23-2023 take 1 tablet by mouth every six hours as needed for pain Oxycodone-Acetamino phen 5-325 mg Tablet Discontinued 1 TAB PO Q6H as needed for Severe Pain 07 03March 07, 2022 March 23, 2023 [...] 5-325 MG per tablet 1 tablet albuterol 0.833 mg/ml / ipratropium bromide 0.167 mg/ml inhalation solution (2 sources) Anticholinergic, beta2-Adrenergic Agonist Start: 12-06-2022 take 3 mL by inhalation every four hours as needed ipratropium-albuterol (DUONEB) 0.5 mg-3 mg(2.5 mg base)/3 mL nebu Inhale 3 mL as instructed every 4 hours as needed for wheezing/shortness of breath. 10 Each 0 12/06/2022 Active Comment on above: Inhale 3 mL as instructed every 4 hours as needed for wheezing/shortness of breath. amitriptyline hydrochloride 100 mg oral tablet (11 sources) Tricyclic Antidepressant Start: 02-17-2019 End: 08-29-2021 take 1 tablet by mouth once daily at bedtime Amitriptyline 100 mg tablet Discontinued 100 MG PO Daily at bedtime [...] Comment on above: Take 1 tablet by [facility] twice daily. azithromycin 250 mg oral tablet (4 sources) Macrolide Antimicrobial Start: 10-18-20 End: 12-30-19 Azithromycin (Zithromax Z-Josué) 250 mg tablet Discontinued 0 PO .COMPLEX October 18, 2024 1:00am December 29, 2024 1:41pm For 250 mg dose pack: take 500 mg today (day 1), then 250 mg for 4 days (days 2-5) PO Balsam [place] Oil (4 sources) Start: 03-07-20 End: 03-23-20 Balsam [place] Oil Discontinued 1 APPLIC TOPICAL Three times daily 60 March 07, 2022 12:00am March 23, 2023 1:58pm Balsam [place] Oil Ointment (4 sources) Start: 03-07-20 End: 03-23-20 23 Balsam [place] Oil Ointment Discontinued 1 APPLIC TOPICAL Three times daily 60 March 07, 2022 12:00am March 23, 2023 1:58pm Start: 03-07-2022 End: 03-23-2023 Balsam [place] Oil Ointm ent Discontinued 1 APPLIC TOPICAL Three times daily 60 March 06, 2022 11:00pm March 23, 2023 12:58pm benzocaine 6 mg / menthol 10 mg oral lozenge (2 sources) Standardized Chemical Allergen Start: 12-06-2022 benzocaine-menthol (CHLORASEPTIC) 6-10 mg lozenges Use 1 Lozenge as instructed every 2 hours as needed. 18 Each 0 12/06/2022 Active Comment on above: Use 1 Lozenge as ins tructed every 2 hours as needed. betamethasone 0.5 mg/ml / clotrimazole 10 mg/ml topical cream (3 sources) Azole Antifungal, Corticosteroid End: 11-20-2022 clotrimazole-betamethas one (LOTRISONE) cream Apply to affected area twice daily. 0 11/20/2022 Discontinued Comment on above: Apply to affected ar ea twice daily. bisacodyl 5 mg delayed release oral tablet (2 sources) Stimulant Laxative Start: 02-07-2022 take 5 mg by mouth once daily 5 mg, Oral, DAILY, First dose on Thu02/07/22 at 1645, Until Discontinued Do not crush or break. Post-op Start: 02-07-2022 take 10 mg rectal ro sioux once daily as needed 10 mg, Rectal, [...] Discontinued 2 PUFF INHALATION Twice daily February 16, 2019 11:00pm March 07, 2022 8:02am Start: 02-17-2019 End: 03-07-2022 take 1 puff(s) [...] mcg cyclobenzaprine hydrochloride 5 mg oral tablet (10 sources) Muscle Relaxant Start: 03-07-20 End: 03-23-20 take 1 tablet by mouth three times daily as needed for muscle spasms Cyclobenzaprine 5 mg Tablet Discontinued 5 MG PO Three times daily as needed for Muscle Spasm 90 30 March 07, 2022 12:00am March 23, 2023 1:58pm Start: 02-07-2022 End: 02-23-2022 take 1 tablet by mouth three times daily as needed for muscle spasms cyclobenzaprine (FLEXERIL) 10 MG tablet Take 1 tablet by mouth 3 times daily as needed for Muscle spasms 30 tablet 0 02/13/2022 02/23/2022 Active docusate sodium 50 mg / sennosides, nursing home 8.6 mg oral tablet (1 source) Start: 02-07-2022 take 1 tablet by mouth twice daily 1 tablet, Oral, 2 TIMES DAILY, First dose on Thu02/07/22 at 2100, Until Discontinued, Post-op 500 ml DOPamine hydrochloride 1.6 mg/ml injection (1 source) Catecholamine Start: 02-08-2022 End: 02-13-2022 DOPamine (INTROPIN) 400 mg in dextrose 5 % 250 mL infusion 2 ml fentaNYL 0.05 mg/ml injection (2 sources) Opioid Agonist Start: 02-07-2022 End: 02-07-2022 fentaNYL (SUBLIMAZE) injection 50 mcg Start: 02-07-2022 [...] 12:00am April 19, 2023 8:43am Start: 01-16-2023 End: 01-30-2025 hydromorphone 2 mg Tab Refil ls(s) 0 Start Date: 01/16/23 Status: Ordered Repeat number: 1 Start: 12-06-2022 End: 12-13-2022 take 1 tablet by mouth every four hours as needed HYDROmorphone (DILAUDID) 2 mg tablet Indications: Spinal stenosis of lumbar region, unspecified whether neurogenic claudication present Take 1 tablet by mouth every 4 hours as needed for up to 7 days. 42 tablet 0 12/06/2022 12/13/2022 Active Start: 02-07-2022 End: 02-07-2022 HYDROmorphone (DILAUDID) inj ection 0.5 mg Comment on above: Take 1 tablet by brendan every 4 hours as needed for up to 7 days. hydrOXYzine hydrochloride 50 mg oral tablet (11 sources) Antihistamine Start: 02-18-20 End: 08-29-20 take 100 mg by mouth once daily at bedtime Hydroxyzine Hcl Discontinued 100 MG PO Daily at bedtime February 17, 2019 12:00am August 29, 2021 10:35am Start: 05-26-2017 End: 11-20-2022 take 2 tablets by mouth once daily at bedtime Hydroxyzine Hcl 50 mg tablet Discontinued 100 MG PO Daily at bedtime February 17, 2019 12:00am August 29, 2021 10:35am Comment on above: Take 100 mg by mouth once daily. Ketorolac (20 sources) Nonsteroidal Anti-inflammatory Drug, Cyclooxygenase Inhibitor Start: 04-12-2020 Toradol per 15 mg Mar, 2 cc Start: 05-06-2018 Toradol per 15 mg Apr, 2 cc Start: 10-03-2017 Toradol per 15 mg Sep, 2 cc Start: 09-17-2017 Toradol per 15 mg 30 Nov, 2017 2 cc Start: 03-24-2017 Toradol per [...] Toradol per 15 mg Jan, 2ml Lanolin Myveded-Zb-S.Pet-Cer es (Minerin Creme) Cream (8 sources) Start: 04-19-2023 End: 01-06-2024 Lanolin Pchnsno-Oz-G.Pet-Cer es (Minerin Creme) Cream Discontinued 1 APPLIC TOPICAL Twice daily 11 17April 18, 2023 11:00pm January 06, 2024 3:09pm Start: 04-19-2023 End: 01-06-2024 Lanolin Dhteuqb-Ah-G.Pet-Cer es (Minerin Creme) Cream Discontinued 1 APPLIC TOPICAL Twice daily 11 17April 19, 2023 12:00am January 06, 2024 4:09pm lidocaine 0.04 mg/mg medicated patch (20 sources) Antiarrhythmic, Amide Local Anesthetic Start: 04-19-2023 End: 01-22-2024 apply 1 dose topically once daily as needed Lidocaine 4 % adhesive patch,medicated Discontinued 1 PATCH TOPICAL Daily January 06, [...] apply 1 dose topically once daily Lidocaine 5 % Adhesive Patch,Medicated Discontinued 1 PATCH TOPICAL Daily February 18, [...] 80 mg/ml oral suspension (3 sources) Start: 2016 End: 2022 take 15 mL by mouth once daily [...] 48 hrs. melatonin 5 mg oral tablet (8 sources) Start: 2022 End: 2023 Melatonin 5 mg Tablet Discontinued 5 MG PO 2300 0 April 19, 2023 12:00am January 06, 2024 4:09pm methylPREDNISolone 4 mg oral tablet (10 sources) Corticosteroid Start: 2023 End: 2024 take 1 tablet by mouth once Methylprednisolone (Medrol (Josué)) 4 mg tablets,dose pack Discontinued 0 PO per package directions October 18, 2024 1:00am December 29, 2024 1:41pm PO PER PKG DIR Start: 09-02-2023 methylPREDNISo lone 4 MG as directed Orally as directed Aug, Active Mineral Oil-Isopropyl Myrist at (Minerin) lotion (8 sources) Start: 01-06-2024 End: 02-11-2024 Mineral Oil-Isopropyl Myrist at (Minerin) lotion Discontinued 1 APPLIC TOPICAL 3 to 4 times per day as needed January 06, 2024 12:00am February 11, 2024 8:20am Start: 01-06-2024 End: 02-11-2024 Mineral Oil-Isopropyl Myrist at (Minerin) lotion Discontinued 1 APPLIC TOPICAL 3 to 4 times per day as needed January 05, 2024 11:00pm February 11, 2024 7:20am Start: 01-06-2024 End: 02-11-2024 Mineral Oil-Isopropyl Myrist at (Minerin) lotion Discontinued 1 APPLIC TOPICAL 3 to 4 times per day January 06, 2024 12:00am February 11, 2024 8:20am Start: 01-06-2024 Mineral Oil-Is opropyl Myristat (Minerin) lotion Active 1 APPLIC TOPICAL 3 to 4 times per day January 06, 2024 12:00am 24 hr mirabegron 50 mg extended release oral tablet (8 sources) beta3-Adrenergic Agonist Start: 02-17-2019 End: 10-14-2019 [...] by brendan th once daily. Multivitamin preparation (4 sources) Start: 02-17-2019 End: 03-23-2023 take 1 tablet by mouth once daily in the morning Multivitamin Discontinued 1 TAB PO Every morning February 17, 2019 12:00am March 23, 2023 1:58pm multivitamin tablet (2 sources) take 1 tablet by mouth once daily multivitamin tablet take 1 tablet by oral route daily unsure of dose Multivitamin Tablet (4 sources) Start: 02-17-2019 End: 03-23-2023 take 1 tablet by mouth once daily in the morning Multivitamin Tablet Discontinued 1 TAB PO Every morning February 17, 2019 12:00am March 23, 2023 1:58pm Start: 02-17-2019 End: 03-23-2023 take 1 tablet by mouth once daily in the morning Multivitamin Tablet Discontinued 1 TAB PO Every morning February 16, 2019 11:00pm March 23, 2023 12:58pm Multivitamins DX: 285.9 (20 sources) Start: 08-15-2013 take 1 capsule by mouth once daily Multivitamins DX: 285.9 1 capsule Orally Once a day for 90 days Jul, Not-Taking Start: 08-15-2013 take 1 capsule by mo [facility] once daily Multivitamins DX: 285.9 1 capsule [...] Polyene Antifungal Start: 01-06-2024 End: 01-22-2024 Nystatin 100,000 unit/gram powder Discontinued 1 APPLIC TOPICAL Twice daily January 06, 2024 12:00am January 22, 2024 9:18am FreeTextSi application Externally Twice a day; Note: Source Status: Taking; Provider: Leyda Hughes ( ) Start: 04-19-2023 End: 01-06-2024 Nystatin (Nystop) 100,000 un it/gram Powder Discontinued 1 APPLIC TOPICAL Three times daily 11 17April 19, 2023 12:00am January 06, 2024 4:09pm Nystatin [id number] UNIT/GM 1 application Externally Twice a day Active Murray-3 Fatty Acids (4 sources) Start: 02-18-2022 End: 03-23-2023 take 1000 mg by mouth once daily in the morning Murray-3 Fatty Acids Discontinued 1000 MG PO Every morning February 18, 2022 12:00am March 23, 2023 1:58pm Murray-3 Fatty Acids Capsule (4 sources) Start: 02-18-2022 End: 03-23-2023 take 1 capsule by mouth once daily in the morning Murray-3 Fatty Acids Capsule Discontinued 1000 MG PO Every morning February 18, 2022 12:00am March 23, 2023 1:58pm Start: 02-18-2022 End: 03-23-2023 take 1 capsule by mouth once daily in the morning Murray-3 Fatty Acids Capsule Discontinued 1000 MG PO Every morning February 17, 2022 11:00pm March 23, 2023 12:58pm omeprazole 40 mg delayed release oral capsule (1 source) Proton Pump Inhibitor take 1 capsule by mouth once daily omeprazole (PRILOSEC) 40 mg capsule Take 40 mg by mouth once daily. 0 Active Comment on above: Take 40 mg by mouth once daily. ondansetron 4 mg disintegrating oral tablet (20 sources) Serotonin-3 Receptor Antagonist Start: 01-14-20 End: 01-31-20 take 1 tablet by mouth once daily Ondansetron 4 mg tablet,disintegratin g Discontinued 4 MG PO Daily 90 January 13, 2025 12:00am January 30, 2025 2:10pm Start: 03-23-2023 End: 01-06-2024 take 1 tablet by mouth every eight hours as needed for nausea Ondansetron 4 mg Tablet,Disintegrating Discontinued 4 MG PO Q8H as needed for Nausea March 23, 2023 12:00am January 06, 2024 4:09pm Start: 01-16-2023 ondansetron 4 mg Tab Refills(s) 0 Start Date: 01/16/23 Status: Ordered Repeat number: 1 Start: 12-06-2022 take 1 tablet by brendan th every eight hours as needed ondansetron (ZOFRAN) 4 mg tablet Take 1 tablet by mouth every 8 hours as needed for nausea/vomiting. 21 tablet 0 12/06/2022 Active Start: 02-17-2019 End: 03-07-2022 take 1 tablet by mouth three times daily as needed for nausea Ondansetron Hcl (Zofran) 4 mg Tablet Discontinued 4 MG PO Three times daily as needed for Nausea February 17, 2019 12:00am March 07, 2022 9:03am Start: 04-08-2018 End: 02-11-2024 take 2 tablets by mouth every six hours as needed for nausea and vomiting ondansetron (ZOFRAN) 4 mg tablet Take 2 tablets (8 mg total) by mouth every 6 (six) hours as needed for nausea or vomiting. 20 tablet 02/19/2021 Active Start: 12-29-2017 End: 11-20-2022 take 1 [...] tablet (3 sources) Cholinergic Muscarinic Antagonist End: 02-02-202 3 take 15 mg by mouth once daily OXYBUTYNIN CHLORIDE ORAL Take 15 mg by mouth once daily. 0 11/20/2022 Discontinued Comment on above: Take 15 mg by mouth once daily. oxyCODONE hydrochloride 5 mg oral tablet (10 sources) Opioid Agonist Start: 3 End: 4 take 1 tablet by mouth every four hours as needed for pain Oxycodone 5 mg Tablet Discontinued 5 MG PO Every 4 hours as needed for Pain (Scale Score 7-10) 42 7 April 19, 2023 January 06, 2024 4:09pm take 1 tablet by mouth every six hours oxyCODONE HCl 5 MG 1 tablet as needed Orally every 6 hrs Active pantoprazole 40 mg delayed release oral tablet (20 sources) Proton Pump Inhibitor Start: 04-19-2023 End: 02-11-2024 take 1 tablet by mouth once daily Pantoprazole 40 mg tablet,delayed release (DR/EC) Discontinued 40 MG PO Daily January 06, 2024 12:00am February 11, 2024 8:21am Start: 08-29-2021 End: 03-23-2023 take 1 tablet by mouth once daily in the morning Pantoprazole 40 mg tablet,delayed release (DR/EC) Discontinued 40 MG PO Every morning August [...] Comment on above: Take 1 capsule by [facility] daily at bedtime. polyethylene glycol 3350 [id number] mg powder for oral solution (20 sources) Osmotic Laxative Start: 02-07-2022 End: 01-22-2024 Polyethylene Glycol 3350 17 gram/dose powder Discontinued 17 GM PO As Directed January [...] for Nausea/Vomiting. QUEtiapine 25 mg oral tablet (12 sources) Atypical Antipsychotic Start: 01-11-2020 End: 03-23-2023 take 1 tablet by mouth once daily at bedtime Quetiapine (Seroquel) 25 mg Tablet Discontinued 25 MG PO Daily at bedtime February 18, 2022 12:00am March 23, 2023 1:58pm Comment on above: Take 1 tablet by brendan th every evening. raNITIdine 150 mg oral tablet (8 sources) Histamine-2 Receptor Antagonist Start: 02-17-2019 End: 08-29-2021 take 1 tablet by mouth once daily Ranitidine Hcl (Zantac) 150 mg Tablet Discontinued 150 MG PO Daily February 17, 2019 12:00am August 29, 2021 10:35am rimegepant 75 mg disintegrating oral tablet (2 sources) Start: 12-29-2024 End: 01-30-2025 take 1 tablet by mouth once as needed for headache Rimegepant (Nurtec Odt) 75 mg tablet,disintegra ting Discontinued 75 MG PO Once as needed for migraine headache December 29, 2024 12:00am January 30, 2025 2:10pm rOPINIRole 1 mg oral tablet (20 sources) Nonergot Dopamine Agonist Start: 01-06-2024 End: 02-11-2024 take 1 tablet by mouth once daily at bedtime Ropinirole 1 mg tablet Discontinued 1 MG PO Daily at bedtime January 06, 2024 12:00am February 11, 2024 8:22am Start: 04-19-2023 End: 01-06-2024 take 1 tablet by mouth once daily at bedtime Ropinirole 0.5 mg Tablet Discontinued 0.5 MG PO Daily at bedtime April 19, 2023 12:00am January 06, 2024 4:10pm take 1 tablet by brendan th once daily at bedtime rOPINIRole HCl 1 MG 1 tablets 1 to 3 hours before bedtime Orally Once a day for 90 days Active sennosides, nursing home 8.6 mg oral tablet (2 sources) Start: 12-06-2022 take 1 tablet by mouth twice daily senna (SENOKOT) 8.6 mg tab Take 1 tablet by mouth twice daily. 0 12/06/2022 Active Comment on above: Take 1 tablet by brendan th twice daily. sildenafil 100 mg oral tablet (20 sources) Phosphodiesterase 5 Inhibitor Start: 02-17-2019 End: 02-18-2022 take 1 tablet by mouth once daily as needed Sildenafil (Viagra) 100 mg Tablet Discontinued 100 MG PO Daily as needed for Erectile Dysfunction February 17, 2019 12:00am February 18, 2022 [...] therapy. Post-op sucralfate 1000 mg oral tablet (11 sources) Aluminum Complex Start: 02-17-2019 End: 08-29-2021 take 1 tablet by mouth twice daily as needed Sucralfate (Carafate) 1 gram Tablet Discontinued 1 GM PO Twice daily as needed for Abdominal Discomfort February 17, 2019 12:00am August 29, 2021 [...] intramuscular injection two times weekly Testosterone Cypionate 200 mg/mL oil Discontinued 60 MG IM .COMPLEX February 10, 2024 12:00am February 11, 2024 8:23am 60 mg intramuscularly twice a week; Start: 02-10-2024 End: 02-11-2024 inject 60 mg by intramuscular injection two times weekly Testosterone Cypionate Discontinued 60 MG IM .COMPLEX February 10, 2024 12:00am February 11, 2024 8:23am 60 mg intramuscularly twice a week; Start: 01-06-2024 End: 01-22-2024 inject 0.3 mL by subcutaneous injection two times weekly Testosterone Cypionate 200 mg/mL oil Discontinued 0 SUBCUT .COMPLEX January 06, 2024 12:00am January 22, 2024 9:18am 0.3 ml subcutaneously; FreeTextSi.3ml subq twice a week; Note: Source Status: Not-[id number] vial; Refills: 0; Qty: 10 ml; Provider: [...] times weekly tiZANidine 4 mg oral tablet (11 sources) Central alpha-2 Adrenergic Agonist Start: 03-17-2018 End: 11-20-2022 Tizanidine 4 mg tablet Discontinued 4 MG PO As Directed as needed for Spasms February 17, 2019 12:00am August 29, 2021 [...] twice daily. valACYclovir 500 mg oral tablet (8 sources) Herpesvirus Nucleoside Analog DNA Polymerase Inhibitor, Herpes Simplex Virus Nucleoside Analog DNA Polymerase Inhibitor, Herpes Zoster Virus Nucleoside Analog DNA Polymerase Inhibitor Start: 02-18-2022 End: 02-18-2022 take 1 tablet by mouth once daily as needed Valacyclovir (Valtrex) 500 mg Tablet Discontinued 500 MG PO Daily as needed for Abdominal Discomfort February 18, 2022 12:00am February 18, 2022 3:57pm vancomycin (VANCOCIN) 1,500 mg in dextrose 5 % 500 mL IVPB (1 source) Start: 02-08-2022 End: 02-08-2022 1,500 mg, IntraVENous, EVERY 12 HOURS, 1 dose, First dose on 02/08/22 at 0015 Antimicrobial Indications: Surgical Prophylaxis Post-op 24 hr venlafaxine 150 mg extended release oral capsule (20 sources) Serotonin and Norepinephrine Reuptake Inhibitor Start: 09-12-2024 End: 01-30-2025 take 1 capsule by mouth once daily Venlafaxine 150 mg capsule,extended release 24hr Discontinued 150 MG PO Daily September 12, 2024 12:23pm January 30, 2025 9:50am Start: 01-06-2024 take 150 mg by mouth once brayan y Venlafaxine Active 150 MG PO Daily January 06, 2024 12:00am Start: 11-16-2023 End: 11-15-2024 take 1 capsule by mouth every twenty-four hours Venlafaxine 150 mg capsule,extended release 24hr Discontinued 150 MG PO June 21, 2024 12:00am September 12, 2024 12:24pm Start: 03-23-2023 End: 01-06-2024 take 1 capsule by mouth once daily Venlafaxine 75 mg capsule,extended release 24hr Active 150 MG PO Daily January 06, 2024 12:00am Start: 03-23-2023 End: 03-23-2023 take 1 tablet by mouth once daily Venlafaxine 75 mg Tablet Discontinued 75 MG PO Daily March 23, 2023 12:00am March 23, 2023 3:15pm Start: 01-16-2023 venlafaxine 37 .5 mg Cap-ER Refills(s) 0 Start Date: 01/16/23 Status: Ordered Repeat number: 1 Start: 01-09-2023 End: 11-16-2023 take 1 capsule by mouth every twenty-four hours in the morning venlafaxine XR (EFFEXOR XR) 75 mg 24 hr capsule Indications: Current moderate episode of major depressive disorder without prior episode ([facility]) Take 1 capsule (75 mg total) by mouth in the morning. 90 capsule 3 01/09/2023 11/16/2023 Discontinued (Dose adjustment) Problems Active Problems Problem Classification Problem Date Documented Da te Episodic/Chronic Administrative/social admission (20 sources) Other reduced mobility; Translations: [COVID-19 long hauler manifesting chronic decreased mobility and endurance] 03-24-2023 Episodic Allergic reactions (2 sources) Contact dermatitis and other eczema due to other specified agents; Translations: [Irritant contact dermatitis due to fecal incontinence] Onset: 11-24-2022 12-05-2022 Episodic Anxiety disorders (20 sources) Other specified anxiety disorders; Translations: [Anxiety] 01-15-2023 Chronic Aortic; peripheral; and visceral artery aneurysms (1 source) Dissection of abdominal aorta; Translations: [Dissection of abdominal aorta] 01-28-2024 Chronic Asthma (20 sources) Unspecified asthma, uncomplicated; Translations: [Asthma] Onset: 12-07-2017 12-07-2017 Chronic Bacterial infection; unspecified site (20 sources) Methicillin resistant Staphylococcus aureus infection, unspecified site; Translations: [Methicillin resistant Staphylococcus aureus] Onset: 01-27-2022 Resolved: 01-27-2022 Episodic Calculus of urinary tract (20 sources) Calculus of kidney; Translations: [Personal history of urinary calculi] Onset: 01-27-2022 Resolved: 05-21-2022 Episodic Cancer of esophagus (8 sources) Malignant tumor of esophagus; Translations: [Malignant [...] due to indwelling urethral catheter, sequela Episodic Conduction disorders (2 sources) Other specified heart block; Translations: [Other specified heart block] Onset: 04-25-2025 Chronic Coronary atherosclerosis and other heart disease (20 [...] 01-15-2023 05-03-2020 Chronic Diabetes mellitus without complication (9 sources) Hyperglycemia, unspecified; Translations: [Other abnormal glucose] Episodic E Codes: Fall (20 sources) Fall; Translations: [Unspecified fall, initial encounter] Onset: 11-20-2022 12-05-2022 Episodic Essential hypertension (20 sources) Essential (primary) hypertension; Translations: [Essential hypertension] Onset: 12-07-2017 05-03-2020 Chronic Gangrene (20 sources) Critical lower limb ischemia ; Translations: [Atherosclerosis of [place] arteries of extremities with gangrene, bilateral legs] Onset: 01-28-2024 01-28-2024 Chronic Genitourinary symptoms and ill-defined conditions (20 sources) Urinary incontinence; Translations: [Unspecified urinary incontinence] Onset: 10-15-2022 Chronic Genitourinary symptoms and ill-defined conditions (20 sources) Urgent desire to urinate; Translations: [Urgency of urination] Onset: 07-31-2006 07-31-2006 Episodic Headache; including migraine (9 sources) Migraine without aura, not refractory ; Translations: [Migraine without aura, not intractable, without status migrainosus] 02-13-2024 Chronic Headache; including migraine (15 sources) Frequent headache; Translations: [Frequent headaches] 03-24-2023 Episodic Hyperplasia of prostate (20 sources) Benign prostatic hypertrophy with outflow obstruction; Translations: [Benign prostatic hyperplasia with lower urinary tract symptoms] Onset: 08-12-2010 Resolved: 01-15-2023 08-12-2010 Chronic Immunizations and screening for infectious disease (16 sources) Needs influenza immunization; Translations: [Encounter for immunization] Episodic Intestinal obstruction without hernia (8 sources) Intestinal obstruction co-occurrent and due to decreased peristalsis; Translations: [Ileus, unspecified] 02-19-2022 Episodic Intracranial injury (8 sources) Concussion with loss of consciousness; Translations: [Concussion with loss of consciousness of unspecified duration, initial encounter] 05-28-2020 Episodic Miscellaneous mental health disorders (6 sources) Psychosexual dysfunction; Translations: [Unspecified sexual dysfunction not due to a substance or known physiological condition] Onset: 07-31-2006 07-31-2006 Chronic Mood disorders (20 sources) Major depressive disorder, single episode, unspecified; Translations: [Depression] Onset: 11-20-2022 01-16-2023 Chronic Nausea and vomiting (13 sources) Nausea; Translations: [Nausea] Onset: 05-21-2022 Resolved: 05-21-2022 Episodic Neoplasms of unspecified nature or uncertain behavior (20 sources) Monoclonal gammopathy of uncertain significance; Translations: [Monoclonal gammopathy] Onset: 09-15-2018 09-15-2018 Chronic Nonspecific chest pain (5 sources) Chest pain; Translations: [Chest pain, unspecified] Episodic Nutritional deficiencies (3 sources) Deficiency of macronutrients; Translations: [Unspecified severe protein-calorie malnutrition] Onset: 11-13-2022 12-05-2022 Chronic Open wounds of extremities (8 sources) Amputated toe; Translations: [Complete traumatic amputation of one unspecified lesser toe, initial encounter] 01-06-2024 Chronic Open wounds of extremities (20 sources) Open wound, heel; Translations: [Unspecified open wound, left foot, initial encounter] Onset: 11-08-2019 11-08-2019 Episodic Osteoarthritis (20 sources) Unilateral primary osteoarthritis, right knee; Translations: [Unspecified osteoarthritis, unspecified site] Onset: 01-28-2017 Resolved: 05-21-2022 07-01-2017 Chronic Other acquired deformities (2 sources) Other kyphoscoliosis and scoliosis Chronic Other aftercare (2 sources) Patient encounter status; Translations: [Encounter for palliative care] Onset: 12-06-2022 12-06-2022 Episodic Other aftercare (1 source) Other skilled nursing (current) drug therapy; Translations: [OTH DETENTION CURRENT DRUG THERAPY] Onset: 02-13-2023 Episodic Other bone disease and musculoskeletal deformities (20 sources) Acquired absence of other left toe(s); Translations: [Toe amputation status, left] Episodic Other circulatory disease (2 sources) Idiopathic hypotension; Translations: [Idiopathic hypotension] Onset: 02-11-2022 Episodic Other circulatory disease (6 sources) Hypotension, unspecified; Translations: [Hypotension I95.9] Onset: 08-06-2021 Resolved: 03-25-2022 Episodic Other circulatory disease (7 sources) Orthostatic hypotension; Translations: [Orthostatic hypotension] Onset: 11-13-2022 Episodic Other circulatory disease (8 sources) Low blood pressure; Translations: [Hypotension, unspecified] 02-19-2022 Episodic Other circulatory disease (3 sources) Feeling of lump in throat; Translations: [Globus sensation] 03-14-2025 Episodic Other circulatory disease (2 sources) Disorder of autonomic nervous system; Translations: [Orthostatic hypotension] 03-14-2025 Episodic Other circulatory disease (1 source) Critical lower limb ischemia 03-16-2025 Episodic Other congenital anomalies (20 sources) Microstomia; Translations: [Microstomia] Onset: 08-09-2010 08-09-2010 Chronic Other connective tissue disease (1 source) Presence of right artificial knee joint; Translations: [Presence of right artificial knee joint] Onset: 07-01-2017 Chronic Other connective tissue disease (20 sources) History of repair of hip joint; Translations: [Presence of unspecified artificial hip joint] Chronic Other connective tissue disease (20 sources) History of left shoulder arthroplasty; Translations: [...] [Unspecified endocrine disorder] Episodic Other gastrointestinal disorders (20 sources) Neurogenic bowel; Translations: [Neurogenic bowel, not elsewhere classified] 02-19-2022 Chronic Other gastrointestinal disorders (4 sources) Neurogenic bowel, not elsewhere classified; Translations: [Neurogenic bowel] Chronic Other gastrointestinal disorders (20 sources) Constipation; Translations: [Constipation, unspecified] 01-06-2024 Episodic Other gastrointestinal disorders (5 sources) Constipation, unspecified; Translations: [Constipation, unspecified] Onset: 08-27-2021 Resolved: 05-21-2022 Episodic Other gastrointestinal disorders (20 sources) Complete fecal incontinence; Translations: [Full incontinence of feces] Episodic Other gastrointestinal disorders (6 sources) Full incontinence of feces; Translations: [Full incontinence of feces] Onset: 10-15-2022 Episodic Other gastrointestinal disorders (6 sources) Diarrhea, unspecified; Translations: [Diarrhea] Episodic Other gastrointestinal disorders (7 sources) Other fecal abnormalities; Translations: [Nonspecific abnormal findings in stool contents] Episodic Other gastrointestinal disorders (8 sources) Diarrhea; Translations: [Diarrhea, unspecified] 01-22-2024 Episodic Other gastrointestinal disorders (8 sources) Incontinence of feces; Translations: [Full incontinence of feces] 01-22-2024 Episodic Other gastrointestinal disorders (8 sources) Mucus in stool; Translations: [Other fecal abnormalities] 01-22-2024 Episodic Other hereditary and degenerative nervous system conditions (6 sources) Essential tremor; Translations: [Essential tremor] Onset: 10-27-2017 10-27-2017 Chronic Other hereditary and degenerative nervous system conditions (20 sources) Restless legs; Translations: [Restless legs syndrome] 01-06-2024 Chronic Other hereditary and degenerative nervous system conditions (1 source) Restless legs syndrome Chronic Other hereditary and degenerative nervous system conditions (2 sources) Sympathotonic orthostatic hypotension; Translations: [Multi-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] 10-07-2024 Chronic Other hereditary and degenerative nervous system conditions (20 sources) Multiple system atrophy; Translations: [Multi-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] Onset: 02-13-2021 02-13-2021 Chronic Other hereditary and degenerative nervous system conditions (1 source) 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; Translations: [Multi-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] 07-14-2024 Chronic Other hereditary and degenerative nervous system conditions (3 sources) Multi-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; Translations: [Multi-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] Onset: 08-23-2024 Chronic Other injuries and conditions due to external causes (4 sources) Closed injury of head; Translations: [Unspecified injury of head, initial encounter] 10-05-2024 Episodic Other lower respiratory disease (5 sources) Dyspnea; Translations: [Other respiratory abnormalities] Episodic Other lower respiratory disease (1 source) Shortness of breath; Translations: [SOB (shortness of breath)] Onset: 11-20-2022 Episodic Other male genital disorders (20 sources) Secondary erectile dysfunction; Translations: [Male erectile dysfunction, unspecified] Onset: 10-08-2007 10-08-2007 Chronic Other male genital disorders (20 sources) Impotence of organic origin; Translations: [Male erectile dysfunction, unspecified] Chronic Other male genital disorders (8 sources) Male erectile dysfunction, unspecified; Translations: [Erectile dysfunction] 01-06-2024 Chronic Other nervous system disorders (20 sources) Chronic pain syndrome; Translations: [Chronic pain syndrome] Onset: 04-15-2017 04-15-2017 Chronic Other nervous system disorders (20 sources) Complex regional pain syndrome type I; Translations: [Complex regional pain syndrome I, unspecified] Onset: 03-16-2018 03-17-2018 Chronic Other nervous system disorders (20 sources) Neuropathy; Translations: [Polyneuropathy, unspecified] 01-06-2024 Chronic Other nervous system disorders (6 sources) Polyneuropathy, unspecified Onset: 10-23-2021 Resolved: 06-17-2022 Chronic Other nervous system disorders (20 sources) Disorder of autonomic nervous system; Translations: [Disorder of the autonomic nervous system, unspecified] 03-24-2023 Chronic Other nervous system disorders (1 source) Disorder of the autonomic nervous system, unspecified Chronic Other nervous system disorders (4 sources) Chronic pain syndrome; Translations: [Chronic pain syndrome] Chronic Other nervous system disorders (17 sources) Difficulty walking; Translations: [Difficulty in walking, not elsewhere classified] Onset: 02-08-2021 02-08-2021 Chronic Other nervous system disorders (20 sources) Walking difficulty due to ankle and [...] unspecified] 01-06-2024 Episodic Other nervous system disorders (8 sources) Finding of hand region; Translations: [Tremor, unspecified] 01-06-2024 Episodic Other nervous system disorders (2 sources) Dysmetria; Translations: [Other lack of coordination] 03-14-2025 Episodic Other nervous system disorders (1 source) Other lack of coordination; Translations: [Other lack of coordination] Onset: 03-29-2025 Episodic Other non-epithelial cancer of skin (20 sources) Malignant tumor of lip; 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] Onset: 05-11-2007 10-18-2019 Episodic Other nutritional; endocrine; and metabolic disorders (20 sources) Obesity; Translations: [Obesity, unspecified] 01-06-2024 Chronic Other nutritional; endocrine; and metabolic disorders (20 sources) Obese class I; Translations: [Obesity, unspecified] [...] Atelectasis; Translations: [Atelectasis] Episodic Residual codes; unclassified (4 sources) Sleep apnea, unspecified; Translations: [Unspecified sleep apnea] Onset: 02-13-2023 12-29-2024 Chronic Residual codes; unclassified (20 sources) Postprocedural state finding; Translations: [Presence of [...] Onset: 11-21-2022 12-05-2022 Episodic Residual codes; unclassified (8 sources) History of operative procedure on lumbar spinal structure; Translations: [Other specified postprocedural states] 02-19-2022 Episodic Septicemia (except in labor) (6 sources) Sepsis; Translations: [Sepsis, unspecified organism] 06-21-2024 Episodic Spondylosis; intervertebral disc disorders; other back problems (20 sources) Displacement of thoracic intervertebral disc without myelopathy; Translations: [Other intervertebral disc displacement, thoracic region] Onset: 03-06-2004 Resolved: 10-23-2021 03-06-2004 Chronic Substance-related disorders (20 sources) Smoker; Translations: [Tobacco use disorder] Onset: 03-17-2018 11-08-2019 Chronic Comment on above: 6 ciggs daily; Syncope (20 sources) Syncope; Translations: [Syncope and collapse] Onset: 08-29-2020 08-29-2020 Episodic Unclassified (20 sources) Parkinson's disease; Translations: [Parkinson's disease] Onset: 02-03-2021 02-19-2022 Chronic Unclassified (3 sources) Unknown / UNK(Unknown) Onset: 05-30-2016 Unclassified (20 sources) Disorder of rotator cuff; Translations: [Rotator cuff syndrome of shoulder and allied disorders] Onset: 12-10-2004 08-07-2016 Unclassified (1 source) NO SHOW Unclassified (1 source) CONTACT W/AND (SUSP) EXPOS COVID-19; Translations: [CONTACT W/AND (SUSP) EXPOS COVID-19] Onset: 11-13-2022 Unclassified (1 source) Patient encounter status 03-16-2025 Unclassified (1 source) Open wound of left great toe 03-16-2025 Unclassified (2 sources) Foreign body sensation, throat; Translations: [Foreign body sensation, throat] Onset: 03-14-2025 Unclassified (1 source) 1 year follow up no testing Onset: 03-16-2025 Urinary tract infections (20 sources) Acute cystitis; Translations: [Acute cystitis without hematuria] Onset: 04-27-2020 04-27-2020 Episodic Viral infection (2 sources) Disease caused by 2019-nCoV; Translations: [COVID-19] Onset: 11-20-2022 12-05-2022 Episodic Past or Other Problems Problem Classification Problem Date Documented Da te Episodic/Chronic Acquired foot deformities (20 sources) Right foot drop; Translations: [Foot drop, right foot] Onset: 08-29-2020 08-29-2020 Episodic Acute and unspecified renal failure (10 sources) Acute renal failure syndrome Onset: 08-20-2023 08-09-2024 Episodic Deficiency and other anemia (6 sources) Iron deficiency anemia secondary to inadequate dietary iron intake; Translations: [Other iron deficiency anemias] Onset: 06-16-2018 06-16-2018 Episodic Deficiency and other anemia (20 sources) Megaloblastic anemia due to vitamin B>12< deficiency; Translations: [Other megaloblastic anemias, not elsewhere classified] Onset: 12-30-2019 12-30-2019 Episodic Deficiency and other anemia (20 sources) Iron deficiency anemia due to dietary causes; Translations: [Other iron deficiency anemias] Onset: 06-16-2018 10-01-2021 Episodic Disorders of lipid metabolism (20 sources) Hyperlipidemia; Translations: [Other and unspecified hyperlipidemia] Onset: 12-07-2017 Resolved: 01-15-2023 05-03-2020 Chronic Esophageal disorders (20 sources) Gastro-esophageal reflux disease without esophagitis; 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] Onset: 08-06-2021 Resolved: 01-15-2023 Chronic Malaise and fatigue (20 sources) Asthenia; Translations: [Weakness] Onset: 11-13-2022 12-05-2022 Episodic Mood disorders (20 sources) Mood disorders; Translations: [DEPRESSION UNSPECIFIED] Onset: 11-16-2023 Resolved: 08-23-2024 08-23-2024 Other aftercare (1 source) watermaster (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; Translations: [TUBE TURNER USE ORAL HYPOGLYCEMIC DX] Onset: 12-22-2022 Episodic Other aftercare (1 source) Encounter for other orthopedic aftercare; Translations: [ENC FOR OTHER ORTHOPEDIC AFTERCARE] Onset: 10-15-2022 Episodic Other circulatory disease (20 sources) Orthostatic hypotension; Translations: [Orthostatic hypotension] Onset: [...] 12-10-2004 08-07-2016 Episodic Other connective tissue disease (20 sources) Full thickness rotator cuff tear; Translations: [Complete rotator cuff tear or rupture of right shoulder, not specified as traumatic] Onset: 08-02-2018 08-02-2018 Episodic Other connective tissue disease (20 sources) Recurrent falls ; Translations: [Repeated falls] Onset: 08-29-2020 08-29-2020 Episodic Other connective tissue disease (3 sources) History of cervical spine fusion; Translations: [Arthrodesis status] Onset: 10-10-2021 10-10-2021 Episodic Other connective tissue disease (1 source) Pain in right foot Onset: 08-27-2021 Resolved: 08-27-2021 Episodic Other connective tissue disease (2 sources) Arthrodesis status; Translations: [ARTHRODESIS STATUS] Onset: 10-15-2022 Episodic Other gastrointestinal disorders (20 sources) Dysphagia; Translations: [Dysphagia, unspecified] Onset: 04-13-2019 04-13-2019 Episodic Other gastrointestinal disorders (2 sources) Dysphagia, unspecified; Translations: [Dysphagia, unspecified] Onset: 10-01-2021 Episodic Other injuries and conditions due to external causes (1 source) History of falling Onset: 10-23-2021 Resolved: 10-23-2021 Episodic Other injuries and conditions due to external causes (1 source) Other specified injuries of head, initial encounter; Translations: [Other specified injuries of head, initial encounter] Onset: 09-27-2024 Episodic Other nervous system disorders (20 sources) Multifactorial gait problem; Translations: [Other abnormalities [...] ORGANISM] Onset: 11-05-2022 Episodic Residual codes; unclassified (20 sources) Tobacco use and exposure - finding; Translations: [Tobacco use] Onset: 04-24-2020 04-24-2020 Episodic Screening and history of mental health [...] (1 source) History of COVID-19 Z86.16 Unclassified (20 sources) Onset: 08-25-2022 Resolved: 10-07-2024 10-07-2024 Results Test Name Value Interpretation Reference Range Facility Office Visiton 04-25-2025 Follow-up visit [id number] Lina Correa es L 1960 M Date Provider Department Center 04/25/2025 LORA MENSAH RAMIRO Pham Family History Problem Relation Age of Onset Asthma Mother Depression Mother Hypertension Mother Hypotension Mother Kidney disease Mother Diabetes type II Father Hypertension Father Cancer Brother Heart attack Mother's Brother Heart attack Maternal Grandfather Family Status - Relation Status Age at Mother Alive Father Alive Brother Alive Mother's Brother Maternal Grandfather Level of Service:89426 [place] OFFICE/OUTPATIENT NEW HIGH MDM 60 MINUTES Normal [facility] Orders Onlyon 04-25-2025 Orders Only [id number] Lina Correa es L 1960 M Date Provider Department Center 04/25/2025 ALANA EUBANKS RAMIRO Pham Family History Problem Relation Age of Onset Asthma Mother Depression Mother Hypertension Mother Hypotension Mother Kidney disease Mother Diabetes type II Father Hypertension Father Cancer Brother Heart attack Mother's Brother Heart attack Maternal Grandfather Family Status - Relation Status Age at Mother Alive Father Alive Brother Alive Mother's Brother Maternal Grandfather Normal [facility] Ambulatory Visit Summaryon 0 04-24-2025 Ambulatory Visit Summary Ambulatory Visit Summary ALISIA CORREA :1960 Visit Date:04/24/2025 Ambulatory Visit Instructions Your Care Team Attending Physician - LYN [...] mg Tab) pregabalin (pregabalin 300 mg Cap) sulfamethoxazole-trimetho prim (Bactrim 400 mg-80 mg Tab) tolterodine (tolterodine 4 mg Cap-ER) topiramate (topiramate [...] to do next Scheduled Follow-Up Appointments Thursday 10:00 AM EDT With: LYN MACE PA-C Where: [facility] [address] [place] [address]- Medications What How Much When Instructions Unchanged acarbose (acarbose 25 mg oral tablet) Unchanged atorvastatin (atorvastatin 10 mg Tab) Unchanged benzonatate (benzonatate 100 mg Cap) Unchanged carbidopa-levodopa (carbidopa-levodopa 25 mg-100 mg ER Tab) Unchanged diclofenac (diclofenac sodium 75 mg Oral EC Tab) By Mouth 2 times a day Unchanged duloxetine (duloxetine 60 mg oral delayed release capsule) Unchanged ezetimibe (ezetimibe 10 mg Tab) Unchanged fludrocortisone (fludrocortisone 0.1 mg Tab) Unchanged HYDROmorphone (hydromorphone 2 mg Tab) Unchanged midodrine (midodrine 5 mg Tab) Unchanged montelukast (montelukast 10 mg Tab) Unchanged ondansetron (ondansetron 4 mg Tab) Unchanged pregabalin (pregabalin 300 mg Cap) By Mouth 2 times a day Unchanged sulfamethoxazole-trimetho prim (Bactrim 400 mg-80 mg Tab) 1 Tablets By Mouth Thursday Duration: 90 Days Unchanged tolterodine (tolterodine 4 mg Cap-ER) 1 Capsules By Mouth Every day Unchanged topiramate (topiramate 100 mg Tab) By Mouth 2 times a day Unchanged venlafaxine (venlafaxine 37.5 mg Cap-ER) Allergies Avelox (Wheal, Eruption, Dyspnea, Urticaria, Itching, Hives) CeleBREX (Hives) clonazePAM (Shortness of breath) erythromycin (Nausea) levoFLOXacin (Dyspnea, Shortness of breath) moxifloxacin (Wheal, Wheal, Dyspnea, Eruption, Itching, Urticaria) Problems Ongoing - Any problem that you are currently receiving treatment for. 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 Durbin's esophagus Benign prostatic hyperplasia with outflow obstruction Diabetes mellitus Hyperlipidemia Patient Survey You may receive a survey via text or e-mail asking about your office visit. Please share your experience with us by completing your survey. We appreciate your feedback and thank you for choosing us for your care. Patient Portal You may access all of your results and other medical record information on our secure patient portal. If you are not signed up for this yet, please contact Health Information Management at [phone] to get signed up today. Language Information Language assistance services are available as needed. Normal [facility] Documentationon 04-14-2025 Documentation [id number] Lina Correa 1960 M Date Provider Department Center 04/14/2025 [facility] HEART UT HeartVAS Family History Problem Relation Age of Onset Asthma Mother Depression Mother Hypertension Mother Hypotension Mother Kidney disease Mother Diabetes type II Father Hypertension Father Cancer Brother Family Status - Relation Status Age at Mother Alive Father Alive Brother Alive Reason for Visit and Comments: second degree Heart block [Other] - Pause on monitor. Called Dipti and left message we will have him see EP will need likely PPM and CLS BP sensing model. I will see he is scheduled soon. Normal [facility] SEGMENTAL BLOOD PRESSUREon 0 04-11-2025 [place] [address] Cardiology Report Signed Patient: ALISIA CORREA MR#: [id number] : 1960 Acct:[id number] Age/Sex: 64 / M ADM Date: 04/11/25 Loc: CARD Attending Dr: Heidy Marin M.D. Ordering Physician: Heidy Marin M.D. Date of Service: 04/11/25 Procedure(s): CA segmental UE or LE MARIXA Accession Number(s): [id number] cc: ELLEN CRABTREE ; Heidy Marin M.D. 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 Interpretive Statements Summary of the [...] Electronically Signed On 04-11-2025 22:13:29 EDT by ISMAEL JC M.D. Dictated By: ISMAEL JC Signed By: 04/11/25221304/11/254 DD/ 1548 TD/TT: School Psychologist: [facility] Radiology, Radiologi MD mercedes - 04/11/2025 [place] [address] Cardiology Report Signed Patient: ALISIA CORREA MR#: [id number] : 1960 Acct:[id number] Age/Sex: 64 / M ADM Date: 04/11/25 Loc: CARD Attending Dr: Heidy Marin M.D. Ordering Physician: Heidy Marin M.D. Date of Service: 04/11/25 Procedure(s): CA segmental UE or LE MARIXA Accession Number(s): [id number] cc: ELLEN CRABTREE ; Heidy Marin M.D. 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 Interpretive Statements Summary of the [...] Electronically Signed On 04-11-2025 22:13:29 EDT by ISMAEL JC M.D. Dictated By: ISMAEL JC Signed By: 04/11/25221304/11/252213 DD/ 1548 TD/TT: School Psychologist: [facility] Radiology Study observation (narrative) [facility] SEGMENTAL BLOOD PRESSUREOrde red By: Radiologist Radiology on 04-11-2025 [facility] Work Phone: 36on 04-07-2025 36 Per pt's request felipe nt monitor order was faxed to hospital. Confirmed 04/07/25 at 9:24 [facility] 36 Order was faxed to melly eason. [facility] 36 Patient would like cardiac event monitor order to be faxed to [facility] fax#[phone]. Thank you This phone message was created by the Ambulatory float staff. If you need shipping support follow up regarding this patient, please make your appropriate clinic staff member aware. Thank you. [facility] 36on 04-05-2025 36 Vm is full, unable t o leave msg [facility] Telemedicineon 04-05-2025 Telemedicine [id number] Lina Correa 1960 M Date Provider Department Center 04/05/2025 [facility] CARD UT HeartVAS Family History Problem Relation Age of Onset Asthma Mother Depression Mother Hypertension Mother Hypotension Mother Kidney disease Mother Diabetes type II Father Hypertension Father Cancer Brother Family Status - Relation Status Age at Mother Alive Father Alive Brother Alive Level of Service:62275 [place] OFFICE/OUTPATIENT NEW MODERATE MDM 45 MINUTES (95) Reason for Visit and Comments: Telehealth Audio/video Visit [871] Normal [facility] CT BRAIN WO CONTon CT BRAIN WO CONT CT BRAIN WO CONT HISTORY: A 64-year-old male with a history [...] Henry Samano MD on 04/02/2025 5:17 PM Normal [facility] Ambulatory Visit Summaryon 0 03-31-2025 Ambulatory Visit Summary Ambulatory Visit Summary ALISIA CORREA :1960 Visit Date:03/31/2025 Ambulatory Visit Instructions Your Diagnosis Urine retention Your Care Team Attending Physician - LYN [...] mg Tab) pregabalin (pregabalin 300 mg Cap) sulfamethoxazole-trimetho prim (Bactrim 400 mg-80 mg Tab) tolterodine (tolterodine 4 mg Cap-ER) topiramate (topiramate [...] to do next Scheduled Follow-Up Appointments Thursday 10:00 AM EDT With: LYN MACE PA-C Where: [facility] [address] [address]- Thursday 10:00 AM EDT With: LYN MACE PA-C Where: [facility] [address] [address]- Medications What How Much When Instructions Unchanged acarbose (acarbose 25 mg oral tablet) Unchanged atorvastatin (atorvastatin 10 mg Tab) Unchanged benzonatate (benzonatate 100 mg Cap) Unchanged carbidopa-levodopa (carbidopa-levodopa 25 mg-100 mg ER Tab) Unchanged diclofenac (diclofenac sodium 75 mg Oral EC Tab) By Mouth 2 times a day Unchanged duloxetine (duloxetine 60 mg oral delayed release capsule) Unchanged ezetimibe (ezetimibe 10 mg Tab) Unchanged fludrocortisone (fludrocortisone 0.1 mg Tab) Unchanged HYDROmorphone (hydromorphone 2 mg Tab) Unchanged midodrine (midodrine 5 mg Tab) Unchanged montelukast (montelukast 10 mg Tab) Unchanged ondansetron (ondansetron 4 mg Tab) Unchanged pregabalin (pregabalin 300 mg Cap) By Mouth 2 times a day Unchanged sulfamethoxazole-trimetho prim (Bactrim 400 mg-80 mg Tab) 1 Tablets By Mouth Thursday Duration: 90 Days Unchanged tolterodine (tolterodine 4 mg Cap-ER) 1 Capsules By Mouth Every day Unchanged topiramate (topiramate 100 mg Tab) By Mouth 2 times a day Unchanged venlafaxine (venlafaxine 37.5 mg Cap-ER) Allergies Avelox (Wheal, Eruption, Dyspnea, Urticaria, Itching, Hives) CeleBREX (Hives) clonazePAM (Shortness of breath) erythromycin (Nausea) levoFLOXacin (Dyspnea, Shortness of breath) moxifloxacin (Wheal, Wheal, Dyspnea, Eruption, Itching, Urticaria) Problems Ongoing - Any problem that you are currently receiving treatment for. 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 Durbin's esophagus Benign prostatic hyperplasia with outflow obstruction Diabetes mellitus Hyperlipidemia Patient Survey You may receive a survey via text or e-mail asking about your office visit. Please share your experience with us by completing your survey. We appreciate your feedback and thank you for choosing us for your care. Normal [facility] SWALLOW MOTILITY FUNCTION on 03-29-2025 FL SWALLOW MOTILITY FUNCTION FL SWALLOW MOTILITY FUNCTION STUDY: Video fluoroscopic swallow study CLINICAL HISTORY: [...] Papito Norris DO on 03/29/2025 2:13 PM Normal [facility] Orders Onlyon 03-15-2025 Orders Only [id number] Lina Correa 1960 M Date Provider Department Center 03/15/2025 [id number], SUJEY HVC CARD UT HeartVAS No family history on file Normal [facility] Ambulatory Visit Summaryon 0 03-10-2025 Ambulatory Visit Summary Ambulatory Visit Summary ALISIA CORREA :1960 Visit Date:03/10/2025 Ambulatory Visit Instructions Your Care Team Attending Physician - LYN [...] mg Tab) pregabalin (pregabalin 300 mg Cap) sulfamethoxazole-trimetho prim (Bactrim 400 mg-80 mg Tab) tolterodine (tolterodine 4 mg Cap-ER) topiramate (topiramate [...] to do next Scheduled Follow-Up Appointments Thursday 10:00 AM EDT With: LYN MACE PA-C Where: [facility] [address] [place] [address]- Medications What How Much When Instructions Unchanged acarbose (acarbose 25 mg oral tablet) Unchanged atorvastatin (atorvastatin 10 mg Tab) Unchanged benzonatate (benzonatate 100 mg Cap) Unchanged carbidopa-levodopa (carbidopa-levodopa 25 mg-100 mg ER Tab) Unchanged diclofenac (diclofenac sodium 75 mg Oral EC Tab) By Mouth 2 times a day Unchanged duloxetine (duloxetine 60 mg oral delayed release capsule) Unchanged ezetimibe (ezetimibe 10 mg Tab) Unchanged fludrocortisone (fludrocortisone 0.1 mg Tab) Unchanged HYDROmorphone (hydromorphone 2 mg Tab) Unchanged midodrine (midodrine 5 mg Tab) Unchanged montelukast (montelukast 10 mg Tab) Unchanged ondansetron (ondansetron 4 mg Tab) Unchanged pregabalin (pregabalin 300 mg Cap) By Mouth 2 times a day Unchanged sulfamethoxazole-trimetho prim (Bactrim 400 mg-80 mg Tab) 1 Tablets By Mouth Thursday Duration: 90 Days Unchanged tolterodine (tolterodine 4 mg Cap-ER) 1 Capsules By Mouth Every day Unchanged topiramate (topiramate 100 mg Tab) By Mouth 2 times a day Unchanged venlafaxine (venlafaxine 37.5 mg Cap-ER) Allergies Avelox (Wheal, Eruption, Dyspnea, Urticaria, Itching, Hives) CeleBREX (Hives) clonazePAM (Shortness of breath) erythromycin (Nausea) levoFLOXacin (Dyspnea, Shortness of breath) moxifloxacin (Dyspnea, Eruption, Itching, Urticaria) Problems Ongoing - Any problem that you are currently receiving treatment for. 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 Durbin's esophagus Benign prostatic hyperplasia with outflow obstruction Diabetes mellitus Hyperlipidemia Patient Survey You may receive a survey via text or e-mail asking about your office visit. Please share your experience with us by completing your survey. We appreciate your feedback and thank you for choosing us for your care. Normal [facility] US Abdominal Aorta for vicki denise 02-28-2025 [place] [address] Ultrasound Report Signed Patient: ALISIA CORREA MR#: [id number] : 1960 Acct:[id number] Age/Sex: 64 / M ADM Date: 02/28/25 Loc: US Attending Dr: Heidy Marin M.D. Ordering Physician: Heidy Marin M.D. Date of Service: 02/28/25 Procedure(s): US abdominal aortic aneurysm Accession Number(s): [id number] cc: ELLEN CRABTREE ; Heidy Marin M.D. [address] [address] Patient Name: ALISIA CORREA MRN: [id number] date: 1960 Sex: M Assigned Patient Location: US Current Patient Location: US Accession/Order Number: [id number] Exam Date: 02/28/2025 11:36 Report Date: 02/28/2025 11:39 At the request of: HEIDY MARIN MD Procedure: US abdominal aortic aneurysm [...] Garcia M.D. 02/28/2025 11:39 AM Dictation Location: [place] [address] Electronically authenticated by: [id number] Y Date: 02/28/2025 11:39 Dictated By: Geneva Garcia M.D. Signed By: 02/28/25 1142 DD/ 1139 TD/TT: School Psychologist: [facility] Radiology Radiologisatu long MD - 02/28/2025 [place] [address] Ultrasound Report Signed Patient: ALISIA CORREA MR#: [id number] : 1960 Acct:[id number] Age/Sex: 64 / M ADM Date: 02/28/25 Loc: US Attending Dr: Heidy Marin M.D. Ordering Physician: Heidy Marin M.D. Date of Service: 02/28/25 Procedure(s): US abdominal aortic aneurysm Accession Number(s): [id number] cc: ELLEN CRABTREE ; Heidy Marin M.D. The [place] [id number] Patient Name: ALISIA CORREA MRN: [facility]:[id number] date: 1960 Sex: M Assigned Patient Location: US Current Patient Location: US Accession/Order Number: [id number] Exam Date: 02/28/2025 11:36 Report Date: 02/28/2025 11:39 At the request of: HEIDY MARIN MD Procedure: US abdominal aortic aneurysm [...] Garcia M.D. 02/28/2025 11:39 AM Dictation Location: [place] [address] Electronically authenticated by: [id number] Y Date: 02/28/2025 11:39 Dictated By: Geneva Garcia M.D. Signed By: 02/28/25 1142 DD/ 1139 TD/TT: School Psychologist: [facility] Radiology Study observation (narrative) [facility] US Abdominal Aorta for vicki Carterrdered By: Radiologist Radiology on 02-28-2025 [facility] Work Phone: Ambulatory Visit Summaryon 0 02-17-2025 Ambulatory Visit Summary Ambulatory Visit Summary ALISIA CORREA :1960 Visit Date:02/17/2025 Ambulatory Visit Instructions Your Diagnosis Urine retention Your Care Team Attending Physician - LYN [...] mg Tab) pregabalin (pregabalin 300 mg Cap) sulfamethoxazole-trimetho prim (Bactrim 400 mg-80 mg Tab) tolterodine (tolterodine 4 mg Cap-ER) topiramate (topiramate [...] Scheduled Follow-Up Appointments Thursday 11:00 AM EDT With: LYN MACE PA-C Where: [facility] [address] [facility] [place] [address]- Thursday 10:00 AM EDT With: LYN MACE PA-C Where: [facility] [address] [place] [address]- Thursday 10:00 AM EDT With: LYN MACE PA-C Where: [facility] [address] [place] [address]- Medications What How Much When Instructions Unchanged acarbose (acarbose 25 mg oral tablet) Unchanged atorvastatin (atorvastatin 10 mg Tab) Unchanged benzonatate (benzonatate 100 mg Cap) Unchanged carbidopa-levodopa (carbidopa-levodopa 25 mg-100 mg ER Tab) Unchanged diclofenac (diclofenac sodium 75 mg Oral EC Tab) By Mouth 2 times a day Unchanged duloxetine (duloxetine 60 mg oral delayed release capsule) Unchanged ezetimibe (ezetimibe 10 mg Tab) Unchanged fludrocortisone (fludrocortisone 0.1 mg Tab) Unchanged HYDROmorphone (hydromorphone 2 mg Tab) Unchanged midodrine (midodrine 5 mg Tab) Unchanged montelukast (montelukast 10 mg Tab) Unchanged ondansetron (ondansetron 4 mg Tab) Unchanged pregabalin (pregabalin 300 mg Cap) By Mouth 2 times a day Unchanged sulfamethoxazole-trimetho prim (Bactrim 400 mg-80 mg Tab) 1 Tablets By Mouth Thursday Duration: 90 Days Unchanged tolterodine (tolterodine 4 mg Cap-ER) 1 Capsules By Mouth Every day Unchanged topiramate (topiramate 100 mg Tab) By Mouth 2 times a day Unchanged venlafaxine (venlafaxine 37.5 mg Cap-ER) Allergies Avelox (Wheal, Eruption, Dyspnea, Urticaria, Itching, Hives) CeleBREX (Hives) clonazePAM (Shortness of breath) erythromycin (Nausea) levoFLOXacin (Dyspnea, Shortness of breath) moxifloxacin (Dyspnea, Eruption, Itching, Urticaria) Problems Ongoing - Any problem that you are currently receiving treatment for. 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 Durbin's esophagus Benign prostatic hyperplasia with outflow obstruction Diabetes mellitus Hyperlipidemia Patient Survey You may receive a survey via text or e-mail asking about your office visit. Please share your experience with us by completing your survey. We appreciate your feedback and thank you for choosing us for your care. Normal [facility] CT abdomen pelvis wo conon 0 02-15-2025 CT abdomen pelvis wo con [facility] [place] [address] CT Scan Report Signed Patient: Alisia Correa MR#: [id number] : 1960 Acct:[id number] Age/Sex: 64 / M ADM Date: 02/15/25 Loc: CT Room: Type: [facility] Attending Dr: Romel Leonardo MD Copies to: Romel Leonardo MD Ordering Provider: Romel Leonardo MD Date of Service: 02/15/25 CT/CT abdomen pelvis wo con: eval for nephrolithiasis or bladder stones CT ABDOMEN AND PELVIS WITHOUT INTRAVENOUS CONTRAST: CLINICAL HISTORY: Recurrent UTIs. COMPARISON: CT abdomen and pelvis 06/22/2024 TECHNIQUE: Spiral images were obtained through the abdomen and pelvis without intravenous contrast. This CT exam was performed using one or more following dose reduction techniques: Automated exposure control, adjustment of the mA and/or kV according to patient size, or use of iterative reconstruction technique. FINDINGS: Lung Bases: [Elevation left hemidiaphragm with consolidative changes involving the left lung base. Mild right basilar atelectasis.] Organs:Suboptimal evaluation due to lack of IV contrast. Liver gallbladder pancreas spleen and adrenal glands all appear unremarkable. Kidneys demonstrate bilateral nephrolithiasis largest stone measuring 3 mm involving the right kidney. No obstructive uropathy. Abdominal aorta appears normal in caliber. GI: Stomach demonstrates postoperative changes. Small bowel appears nondilated. Appendix is normal. No acute colonic abnormality.[ Pelvis:[Suboptimal evaluation due to streak artifact from the bilateral hip prostheses. Suprapubic catheter is in place. Peritoneum/Retroperitoneu m:No free air or free fluid or lymphadenopathy.[ Abd wall/Bones:Abdominal wall demonstrates no acute findings. Osseous structures demonstrate degenerative change. Neurostimulator device is in place.[Hardware fixation involving the lumbosacral spine. CT/CT abdomen pelvis wo con IMPRESSION: 1. Bilateral nephrolithiasis. No obstructive uropathy. 2. Elevation left hemidiaphragm with consolidative changes involving the left lung base. Developing pneumonia cannot BE excluded. Impression dictated by: Steven Shah Jr., D.O. 02/15/2025 3:42 PM Dictation Location: [place] [address] Transcribed By: [facility] 02/15/25 1542 Dictated By: Steven Shah Jr, DO 02/15/25 1538 Signed By: 02/15/25 1542 Normal [facility] Ambulatory Visit Summaryon 0 01-26-2025 Ambulatory Visit Summary Ambulatory Visit Summary ALISIA CORREA :1960 Visit Date:01/26/2025 Ambulatory Visit Instructions Your Care Team Attending Physician - LYN [...] mg Tab) pregabalin (pregabalin 300 mg Cap) sulfamethoxazole-trimetho prim (Bactrim 400 mg-80 mg Tab) tolterodine (tolterodine 4 mg Cap-ER) topiramate (topiramate [...] Gastric bypass, Knee replacement, Shoulder, Tonsillectomy. Medications What How Much When Instructions Unchanged acarbose (acarbose 25 mg oral tablet) Unchanged atorvastatin (atorvastatin 10 mg Tab) Unchanged benzonatate (benzonatate 100 mg Cap) Unchanged carbidopa-levodopa (carbidopa-levodopa 25 mg-100 mg ER Tab) Unchanged diclofenac (diclofenac sodium 75 mg Oral EC Tab) By Mouth 2 times a day Unchanged duloxetine (duloxetine 60 mg oral delayed release capsule) Unchanged ezetimibe (ezetimibe 10 mg Tab) Unchanged fludrocortisone (fludrocortisone 0.1 mg Tab) Unchanged HYDROmorphone (hydromorphone 2 mg Tab) Unchanged midodrine (midodrine 5 mg Tab) Unchanged montelukast (montelukast 10 mg Tab) Unchanged ondansetron (ondansetron 4 mg Tab) Unchanged pregabalin (pregabalin 300 mg Cap) By Mouth 2 times a day Unchanged sulfamethoxazole-trimetho prim (Bactrim 400 mg-80 mg Tab) 1 Tablets By Mouth Thursday Duration: 90 Days Unchanged tolterodine (tolterodine 4 mg Cap-ER) 1 Capsules By Mouth Every day Unchanged topiramate (topiramate 100 mg Tab) By Mouth 2 times a day Unchanged venlafaxine (venlafaxine 37.5 mg Cap-ER) Allergies Avelox (Wheal, Eruption, Dyspnea, Urticaria, Itching, Hives) CeleBREX (Hives) clonazePAM (Shortness of breath) erythromycin (Nausea) levoFLOXacin (Dyspnea, Shortness of breath) moxifloxacin (Dyspnea, Eruption, Itching, Urticaria) Problems Ongoing - Any problem that you are currently receiving treatment for. 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 Durbin's esophagus Benign prostatic hyperplasia with outflow obstruction Diabetes mellitus Hyperlipidemia Patient Survey You may receive a survey via text or e-mail asking about your office visit. Please share your experience with us by completing your survey. We appreciate your feedback and thank you for choosing us for your care. Normal [facility] Ambulatory Visit Summaryon 0 12-27-2024 Ambulatory Visit Summary Ambulatory Visit Summary FREDYALISIA MEJIA Kenny :1960 Visit Date:12/27/2024 Ambulatory Visit Instructions Your Diagnosis Recurrent UTI Urine retention Your Care Team Attending Physician - LYN MACE PA-C Primary Care Physician - ELLEN CRABTREE DO This Is Your Medications List sulfamethoxazole-trimetho prim (Bactrim 400 mg-80 mg Tab) Contact prescribing physician if questions [...] What to do next Scheduled Follow-Up Appointments 2024 11:20 AM EDT With: LYN MACE PA-C Where: [facility] [address] [place] [address] [place] [address]- You Need to Schedule the Following Appointments Follow Up with LYN MACE PA-C, URL When: In 1 month Where: [address] [place] [address] Medications What How Much When Instructions New sulfamethoxazole-trimetho prim (Bactrim 400 mg-80 mg Tab) 1 Tablets By Mouth Thursday Duration: 90 Days Refills: 1 Pickup at [facility] Unchanged acarbose (acarbose 25 mg oral tablet) [...] (diclofenac sodium 75 mg Oral EC Tab) By Mouth 2 times a day Contact prescribing physician [...] concerns Unchanged pregabalin (pregabalin 300 mg Cap) By Mouth 2 times a day Contact prescribing physician if questions or concerns Unchanged tolterodine (tolterodine 4 mg Cap-ER) 1 Capsules By Mouth Every day Contact prescribing physician if questions or concerns Unchanged topiramate (topiramate 100 mg Tab) By Mouth 2 times a day Contact prescribing physician if questions or concerns Unchanged venlafaxine (venlafaxine 37.5 mg Cap-ER) Contact prescribing physician if questions or concerns Pharmacy Information [facility]: [address] [place], [place] [id number] [phone] Allergies Avelox (Wheal, Eruption, Dyspnea, Urticaria, Itching, Hives) CeleBREX (Hives) clonazePAM (Shortness of breath) erythromycin (Nausea) levoFLOXacin (Dyspnea, Shortness of breath) moxifloxacin (Dyspnea, Eruption, Itching, Urticaria) Problems Ongoing - Any problem that you are currently receiving treatment for. 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 Normal [facility] Urology Office/Clinic Noteon 12-27-2024 Urology Office/Clinic Note Urology Office/Clinic Note HPI Staff At last cath change c/o burning w urination/UTI sx. Cx+. Treated w Bactrim x 7d. Pt called 12/13 w return of sx about 1 week after finishing the previous round. Didn't want to come submit another UA so gave another round of Bactrim. Again pt reports complete resolution of sx while on abx but now they're returning again. Says if he doesn't treat the burning then the pain moves into his back and then he ends up septic. Review of Systems no fever, chills, malaise, myalgia. no chest pain, palpitations, or SOB. no abdominal pain, nausea, vomiting. Physical Exam General: nontoxic, NAD Assessment/Plan 1. Recurrent UTI (N39.0: Urinary tract infection, site not specified) See HPI. Discussed option of low dose suppressive abx. Pt really likes this idea. Risks/benefits/side effects discussed. Will start with M/W/F Bactrim SS. Ordered: E&M of Est. Patient Moderate 30-39 Min [id number] 2. Urine retention (R33.9: Retention of urine, unspecified) Chronic. SP changed. Return in 4 weeks for next change. [1] Ordered: Change cystostomy tube/simple [id number] Orders: sulfamethoxazole-trimetho prim, 1 tab(s), Oral, MonWedFri for 90 day(s), 39 tab(s), Refill(s) 1, [facility], 177, cm, 03/15/24 11:26:00 EDT, Height/Length Dosing, 95.3, kg, 03/15/24 11:26:00 EDT, Weight Dosing Follow-up With When Contact Information RODRI KHAN, LYN Crum, URL In 1 month [address] 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 Urinary retention UTI symptoms Historical Durbin's esophagus Benign prostatic hyperplasia with [...] mg oral tablet atorvastatin 10 mg Tab Bactrim 400 mg-80 mg Tab, 1 tab(s), Oral, MonWedFri, 1 refills benzonatate 100 mg Cap carbidopa-levodopa 25 mg-100 mg ER Tab diclofenac sodium 75 mg Oral EC Tab, Oral, BID duloxetine 60 mg oral delayed release capsule ezetimibe 10 mg Tab fludrocortisone 0.1 mg Tab hydromorphone 2 mg Tab midodrine 5 mg Tab montelukast 10 mg Tab ondansetron 4 mg Tab pregabalin 300 mg Cap, Oral, BID tolterodine 4 mg Cap-ER, 4 mg= 1 cap(s), Oral, Daily, 11 refills topiramate 100 mg Tab, Oral, BID venlafaxine 37.5 mg Cap-ER Allergies Avelox (Wheal, Eruption, Dyspnea, Urticaria, Itching, Hives) CeleBREX (Hives) clonazePAM (Shortness of breath) erythromycin (Nausea) levoFLOXacin (Dyspnea, Shortness of breath) moxifloxacin (Dyspnea, Eruption, Itching, Urticaria) Social History Alcohol Never., 08/27/2024 Substance Abuse Never., 08/27/2024 Tobacco Former smoker, quit more than 30 days ago Tobacco Use:., 09/27/2024 Family History Family history is negative Immunizations Vaccine Date Status pneumococcal 13-valent vaccine 10/21/2022 Recorded influenza virus vaccine, inactivated 09/18/2022 Recorded influenza virus vaccine, inactivated 09/02/2022 Recorded influenza virus vaccine, inactivated 10/15/2021 Recorded SARS-CoV-2 (COVID-19) mRNA-1273 vaccine 10/15/2021 Recorded SARS-CoV-2 (COVID-19) mRNA-1273 vaccine 01/09/2021 Recorded SARS-CoV-2 (COVID-19) mRNA-1273 vaccine 12/13/2020 Recorded influenza virus vaccine, inactivated 07/17/2020 Recorded influenza virus vaccine, inactivated 08/24/2019 Recorded zoster vaccine, inactivated 01/19/2019 Recorded influenza virus vaccine, inactivated 07/07/2018 Recorded influenza virus vaccine, inactivated 07/01/2017 Recorded influenza virus vaccine, inactivated 08/12/2016 Recorded diphtheria/pertussis, acel/tetanus adult 10/22/2015 Recorded influenza virus vaccine, inactivated 07/23/2015 Recorded hepatitis B adult vaccine 08/16/2002 Recorded hepatitis B adult vaccine 01/27/2002 Recorded pneumococcal 23-valent vaccine 08/13/1995 Recorded [1] URO - cath change, possible UTI; LYN MACE PA-C 11/28/2024 16:01 EST Normal [facility] Comment on above: Result Comment: Elec tronically Signed By: LYN MACE PA-C\.br\Date and Time Signed: 12/27/24 12:17 EDT Basophils Auto (Bld) [#/Vol] on 12-13-2024 Basophils (Bld) [#/Vol] Automated basophil count 0.0-0.1 [facility] Basophils/100 WBC Auto (Bld) on 12-13-2024 Basophils/100 WBC (Bld) Automated basophil % 0.2-2.0 [facility] Eosinophils/100 WBC Auto (Bl d)on 12-13-2024 Eosinophils/100 WBC (Bld) Automated eosinophil % 0.9-7.0 [facility] Erythrocyte distribution wid th Auto (RBC) [Ratio]on 12-13-2024 Erythrocyte distribution width (RBC) [Ratio] Erythrocyte distribution width [Ratio] by Automated count High 11.0-15.0 [facility] Estimated glomerular filtrat ion rate (GFR) non- Americanon 12-13-2024 GFR/1.73 sq M.predicted among non-blacks MDRD (S/P/Bld) [Vol rate/Area] Estimated glomerular filtration rate (GFR) non- >=60 mL/min/1.7 3m 2 [facility] Globulin Calc (S) [Mass/Vol] on 12-13-2024 Globulin (S) [Mass/Vol] Serum globulin measurement by calculation (mass/volume) [facility] Hematocrit Auto (Bld) [Volum e fraction]on 12-13-2024 Hematocrit (Bld) [Volume fraction] Hematocrit [Volume Fraction] of Blood by Automated count Low 42.0-54.0 [facility] Hemoglobin [Mass/volume] in Bloodon 12-13-2024 Hemoglobin (Bld) [Mass/Vol] Hemoglobin [Mass/volume] in Blood Low 14.0-18.0 [facility] INR in Platelet poor plasma by Coagulation assayon 12-13-2024 INR Coag (PPP) [Relative time] INR in Platelet poor plasma by Coagulation assay [facility] Comment on above: DESIRED INR:2.0-3.0 CONDITIONS NOT LISTED BELOW2.5-3.5 FOR PROSTHETIC HEART VALVE REPLACEMENT2.5-3.5 RECURRENT THROMBOSIS Laboratory - Chemistry and C hemistry - challengeon 12-13-2024 Albumin [Mass/Vol] 3.7 g/dL 3.4-5.0 [facility] ALP [Catalytic activity/Vol] 91 U/L 46-116 [facility] ALT [Catalytic activity/Vol] U/L Low 16-63 [facility] AST [Catalytic activity/Vol] 18 U/L 15-37 [facility] Bilirubin [Mass/Vol] 0.4 mg/dL 0.2-1.0 [facility] Calcium [Mass/Vol] 9.0 mg/dL 8.5-10.1 [facility] Chloride [Moles/Vol] 108 mmol/L High 98-107 [facility] CO2 [Moles/Vol] 27.7 mmol/L 21.0-32.0 [facility] Creatinine [Mass/Vol] 1.20 mg/dL 0.70-1.30 [facility] GFR/1.73 sq M.predicted MDRD (S/P/Bld) [Vol rate/Area] mL/min/{1.73_m2} >=60 mL/min/1.7 3m 2 [facility] Glucose [Mass/Vol] 91 mg/dL 74-106 [facility] Lactate [Moles/Vol] 1.2 mmol/L 0.4-2.0 [facility] Potassium [Moles/Vol] 3.7 mmol/L 3.5-5.1 [facility] Protein [Mass/Vol] 7.1 g/dL 6.4-8.2 [facility] Sodium [Moles/Vol] 143 mmol/L 136-145 [facility] Urea nitrogen [Mass/Vol] 24.0 mg/dL High 7.0-18.0 [facility] Urea nitrogen/Creatinine [Mass ratio] 20.0 mg/mg [facility] Laboratory - Hematology and Cell countson 12-13-2024 Immature granulocytes/100 WBC (Bld) 0.2 % 0.0-0.5 [facility] Laboratory - Microbiology an d Antimicrobial susceptibilityon 12-13-2024 SARS-CoV-2 (COVID-19) RNA KELLIE+probe Ql (Unsp spec) Negative NEGATIVE [facility] Comment on above: This test has not be en FDA cleared or approved, but has beenauthorized by the FDA under an Emergency Use Authorization(EUA) for use by authorized laboratories certified underIA that meet the requirements to perform moderate or highcomplexity testing. This test has been authorized only forthe detection of proteins from SARS-CoV-2, not for any otherviruses or pathogens. The emergency use of this test isauthorized for the duration of the declaration thatcircumstances exist justifying the authorization ofemergency use of in vitro diagnostic tests for detectionand/or diagnosis of Covid-19 under section 564(b)(1) of theAct, 21 U.S.C. 360bbb-3(b)(1), unless the declaration isterminated or authorization is revoked sooner. Laboratory - Urinalysison Amorphous sediment LM Ql (Urine sed) FEW [facility] Mucus Ql (Urine sed) NONE SEEN NONE SEEN [facility] Leukocytes [#/volume] correc jacqueline for nucleated erythrocytes in Blood by Automated counon 12-13-2024 WBC corrected for nucl RBC Auto (Bld) [#/Vol] Leukocytes [#/volume] corrected for nucleated erythrocytes in Blood by Automated coun 4.0-11.0 [facility] Lymphocytes Auto (Bld) [#/Vo l]on 12-13-2024 Lymphocytes (Bld) [#/Vol] Lymphocytes [#/volume] in Blood by Automated count 1.2-3.8 [facility] Lymphocytes/100 WBC Auto (Bl d)on 12-13-2024 Lymphocytes/100 WBC (Bld) Lymphocytes/100 leukocytes in Blood by Automated count 20.5-60.0 [facility] MCH Auto (RBC) [Entitic mass ]on 12-13-2024 MCH (RBC) [Entitic mass] MCH [Entitic mass] by Automated count 25.9-34.0 [facility] MCHC Auto (RBC) [Mass/Vol]on 12-13-2024 MCHC (RBC) [Mass/Vol] MCHC [Mass/volume] by Automated count 29.9-35.2 [facility] MCV Auto (RBC) [Entitic vol] on 12-13-2024 MCV (RBC) [Entitic vol] MCV [Entitic volume] by Automated count High 80.0-94.0 [facility] Monocytes Auto (Bld) [#/Vol] on 12-13-2024 Monocytes (Bld) [#/Vol] Automated blood monocyte count 0.3-0.8 [facility] Monocytes/100 WBC Auto (Bld) on 12-13-2024 Monocytes/100 WBC (Bld) Automated monocyte % 1.7-12.0 [facility] Neutrophils Auto (Bld) [#/Vo l]on 12-13-2024 Neutrophils (Bld) [#/Vol] Neutrophils [#/volume] in Blood by Automated count 1.4-6.5 [facility] Neutrophils/100 WBC Auto (Bl d)on 12-13-2024 Neutrophils/100 WBC (Bld) Automated neutrophil % 43.0-75.0 [facility] No Panel Informationon 12-13 Urine Bacteria LARGE #/HPF Abnormal NONE SEEN [facility] Urine Culture Reflexed YES-[facility] Urine Other Casts NONE SEEN #/LPF NONE SEEN [facility] Urine Other Crystals Seen #/HPF Abnormal None Seen [facility] Urine RBC 2-5 #/HPF Abnormal 0-2 [facility] Urine Squamous Epithelial Cells RARE #/LPF NONE/RARE [facility] Urine WBC 5-10 #/HPF Abnormal NONE SEEN [facility] Eosinophils # (Auto) 0.2 10 3/uL 0.0-0.7 [facility] Immature Granulocyte # (Auto) 0.01 10 3/uL 0.00-0.03 [facility] Troponin I High Sensitivity 4.4 pg/mL 4.0-76.1 [facility] Comment on above: CUT-OFF POINTS HAVE BEEN ESTABLISHED BASED ON THE FOURTHUNIVERSAL DEFINITION OF MYOCARDIAL INFARCTION. THE UPPERREFERENCE LIMIT (URL) OF TROPONIN, DEFINED THE 99THPERCENTILE OF cTnI DISTRIBUTION IN A REFERENCE POPULATION,HAS BEEN CONFIRMED THE DECISION THRESHOLD FOR MIDIAGNOSIS.99TH PERCENTILE = 76.2 PG/MLNOTE: HIGH-SENSITIVITY TROPONIN ASSAY IS NOT INTENDED TO BEUSED IN ISOLATION BUT SHOULD BE INTERPRETED IN CONJUNCTIONWITH OTHER DIAGNOSTIC AND CLINICAL INFORMATION. Bedside Influenza Type A Antigen Negative [facility] Comment on above: Negative for Flu A p rotein antigen. Infection due to Flu Acannot be ruled out. Flu A antigen in the sample may bebelow the detection limit of the test. Bedside Influenza Type B Antigen Negative [facility] Comment on above: Negative for Flu B p rotein antigen. Infection due to Flu Bcannot be ruled out. Flu B antigen in the sample may bebelow the detection limit of the test. Platelet mean volume Auto (B ld) [Entitic vol]on 12-13-2024 Platelet mean volume (Bld) [Entitic vol] Platelet mean volume [Entitic volume] in Blood by Automated count 9.5-13.5 [facility] Platelets Auto (Bld) [#/Vol] on 12-13-2024 Platelets (Bld) [#/Vol] Platelets [#/volume] in Blood by Automated count Low 150-450 [facility] Prothrombin time (PT)on 11-20 PT Coag (PPP) [Time] Prothrombin time (PT) 9.0- 11.6 [facility] RBC Auto (Bld) [#/Vol]on RBC (Bld) [#/Vol] Erythrocytes [#/volu me] in Blood by Automated count Low 4.70-6.10 [facility] Serum or plasma albumin/glob ulin mass ratioon 12-13-2024 Albumin/Globulin [Mass ratio] Serum or plasma albumin/globulin mass ratio [facility] Serum or plasma anion gap de terminationon 12-13-2024 Anion gap [Moles/Vol] Serum or plasma an ion gap determination [facility] Urine Cultureon 12-13-2024 Bacteria identified Cx Nom (U) ORGANISM: Pseudomonas aeruginosa (O:PSEAER) Carbapenemase [Type] in Isolate by [employer] Organism negative for carbapenemase (CRE) [place] Count >100,000 ORGANISM: Methicillin Resis Staph Aureus (O:MRSA) [place] Count >100,000 Aerobic SABI Charge (NMIC56) SUSCEPTIBILITY ORGANISM: O:PSEAER ANTIBIOTIC INTERPRETATION SABI Amikacin S <16 Aztreonam IB <4 Cefepime S <2 Ceftazidime IB <1 Ceftazidime/Avibactam S <4 Ceftolozane/Tazobactam S <2 Ciprofloxacin I 1 Gentamicin S <2 Levofloxacin I 2 Meropenem S <1 Piperacillin/Tazobactam IB <8 Tobramycin S <2 Aerobic SABI Charge (PCMIC38) SUSCEPTIBILITY ORGANISM: O:MRSA ANTIBIOTIC INTERPRETATION SABI Ceftaroline S 1 Daptomycin S <0.5 Linezolid S 2 Nitrofurantoin S <32 Oxacillin R >2 Penicillin R >2 Tetracycline S <4 Trimethoprim/Sulfamethoxa zole R >2 Vancomycin S 0.5 S = SUSCEPTIBLE I = INTERMEDIATE R [...] RESISTANT TO ALL B-LACTAM DRUGS. PERFORMED BY: [facility] [address] [id number] PATHOLOGIST TEA AND [employer]ICE SUPERVISOR HEIDY MIRANDA M.D. [place] [facility] Comment on above: Performed By: #### C UU #### [facility] [address] Urine cultureOrdered By: Nakia Cramer on 12-13-2024 Bacteria identified Cx Nom (U) Abnormal [facility] Bacteria identified Cx Nom (U) Abnormal [facility] C Urineon 12-02-2024 Bacteria identified Cx Nom (U) Microbiology PROCEDURE: Urine Culture [R1] SOURCE: U CleanCatch BODY SITE: COLLECTED DATE/TIME: 11/28/2024 16:22 EST RECEIVED DATE/TIME: 11/29/2024 18:01 EST START DATE/TIME: 11/29/2024 18:01 EST FREE TEXT SOURCE: LYN MACE PA-C, PA-C, JENNIFER E FINAL REPORTS Final Report [] Verified Date/Time: 12/02/2024 08:46 EST >100,000 cfu/ml Enterobacter cloacae 75,000 cfu/ml Klebsiella pneumoniae SUSCEPTIBILITY RESULTS __ LEGEND: S=Susceptible, N/R=Not Reported, Blank=Data not available, or drug not advisable or tested, I=Intermediate, ESBL=Extended spectrum beta-lactamase, R=Resistant, TFG=Thymidine-dependent strain, BINH=Beta-lactamase positive, SABI=mcg/m;(mg/L), S*=Predicted susceptible interp, R*=Predicted resistant interp Entclo Klepne Antibiotic SABI Dilutn SABI Interp SABI Dilutn SABI Interp Ampicillin >16 R >16 R Ampicillin/ >16/8 R <=8/4 S Sulbactam Aztreonam 16 I <=4 S Cefazolin >16 R <=2 S Cefepime <=2 S <=2 S Ceftazidime >16 R <=1 S Ceftazidime/ <=8 S <=8 S Avibactam Ceftriaxone >2 R <=1 S Cefuroxime >16 R <=4 S Ciprofloxacin <=0.25 S <=0.25 S Ertapenem 1 I <=0.5 S Gentamicin <=2 S <=2 S Levofloxacin <=0.5 S <=0.5 S Meropenem <=1 S <=1 S Nitrofurantoin >64 R <=32 S Piperacillin/ 32 I <=8 S Tazobactam Tetracycline <=4 S <=4 S Tobramycin <=2 S <=2 S Trimethoprim/ <=2/38 S <=2/38 S Sulfa Performing Locations R1: This test was performed at: [facility], [address] [place] [address], [id number] , [place], Normal [facility] Comment on above: Performed By: #### 2 [id number] #### [facility] [address] [place] [id number] A1C with Estimated Average G love 11-28-2024 Glucose [Mass/Vol] 103 mg/dL Normal [facility] Comment on above: Order Comment: Reaso n for Exam Diabetes Result Comment: PERF ORMED BY: [place] [address] PATHOLOGIST [employer] SUPERVISOR HEIDY MIRANDA M.D. Performed By: #### A [facility]C [facility] eA #### [address] HbA1c (Bld) [Mass fraction] 5.2 % Normal 4.3-5.6 [facility] Comment on above: Order Comment: Reaso n for Exam Diabetes Result Comment: Incr eased risk for diabetes: 5.7 - 6.4 diabetes: >6.4 glycemic control for adults with diabetes: <7.0 Performed By: #### A [facility] eA #### [address] Alanine aminotransferase [En zymatic activity/volume] in Serum or PlasmaOrdered By: Ellen Crabtree on 11-28-2024 ALT [Catalytic activity/Vol] Alanine aminotransferase [Enzymatic activity/volume] in Serum or Plasma Low 7-52 [facility] Albumin [Mass/volume] in Ser um or Plasma by Bromocresol green (BCG) dye binding methoOrdered By: Ellen Crabtree on 11-28-2024 Albumin BCG dye [Mass/Vol] Albumin [Mass/volume] in Serum or Plasma by Bromocresol green (BCG) dye binding metho 3.5-5.7 [facility] Alkaline phosphatase [Enzyma tic activity/volume] in Serum or PlasmaOrdered By: Ellen Crabtree on 11-28-2024 ALP [Catalytic activity/Vol] Alkaline phosphatase [Enzymatic activity/volume] in Serum or Plasma 34-104 [facility] Aspartate aminotransferase [ Enzymatic activity/volume] in Serum or PlasmaOrdered By: Ellen Crabtree on 11-28-2024 AST [Catalytic activity/Vol] Aspartate aminotransferase [Enzymatic activity/volume] in Serum or Plasma 13-39 [facility] Basophils Auto (Bld) [#/Vol] Ordered By: Ellen Crabtree on 11-28-2024 Basophils (Bld) [#/Vol] Automated basophil count 0.0-0.2 [facility] Basophils/100 WBC Auto (Bld) Ordered By: Ellen Crabtree on 11-28-2024 Basophils/100 WBC (Bld) Automated basophil % . [facility] Bilirubin.total [Mass/volume ] in Serum or PlasmaOrdered By: Ellen Crabtree on 11-28-2024 Bilirubin [Mass/Vol] Bilirubin.total [Mass/volume] in Serum or Plasma 0.3-1.0 [facility] Blood estimated average gluc ose determination by estimation from glycated hemoglobinOrdered By: Ellen Crabtree on 11-28-2024 Average glucose Estimated from glycated hemoglobin (Bld) [Mass/Vol] Glucose mean value [Mass/volume] in Blood Estimated from glycated hemoglobin [facility] Calcium [Mass/volume] in Ser um or PlasmaOrdered By: Ellen Crabtree on 11-28-2024 Calcium [Mass/Vol] Calcium [Mass/volume ] in Serum or Plasma 8.6-10.3 [facility] Carbon dioxide, total [Moles /volume] in Serum or PlasmaOrdered By: Ellen Crabtree on 11-28-2024 CO2 [Moles/Vol] Carbon dioxide, tota l [Moles/volume] in Serum or Plasma 21.0-31.0 [facility] Chloride [Moles/volume] in S jordy or PlasmaOrdered By: Ellen Crabtree on 11-28-2024 Chloride [Moles/Vol] Chloride [Moles/vol ume] in Serum or Plasma High 98-107 [facility] Cholesterol [Mass/volume] in Serum or PlasmaOrdered By: Ellen Crabtree on 11-28-2024 Cholesterol [Mass/Vol] Cholesterol [Mass /volume] in Serum or Plasma 140-200 [facility] Comment on above: Chol less than 200 m g/dl low riskChol 201-239 mg/dl borderline riskChol 240 mg/dl and greater high risk Cholesterol in HDL [Mass/vol ume] in Serum or PlasmaOrdered By: Ellen Crabtree on 11-28-2024 Cholesterol in HDL [Mass/Vol] Serum or plasma high density lipoprotein (HDL) cholesterol measurement 23-92 [facility] Comment on above: HDL CHOL ATP-III CLA SSIFICATION Cardiovascular RiskHDL > or equal to 60 mg/dL LOWHDL < 40 mg/dL HIGH Cholesterol in LDL Calc [Mas s/Vol]Ordered By: Ellen Crabtree on 11-28-2024 Cholesterol in LDL [Mass/Vol] Cholesterol in LDL [Mass/volume] in Serum or Plasma by calculation 0-100 [facility] Comment on above: LDL ATP III CLASSIFI CATIONLDL less than 100 mg/dL OptimalLDL 100-129 mg/dL Near or above optimalLDL 130-159 mg/dL Borderline highLDL 160-189 mg/dL HighLDL greater than 189 mg/dL Very high Cholesterol in VLDL Calc [Ma ss/Vol]Ordered By: Ellen Crabtree on 11-28-2024 Cholesterol in VLDL [Mass/Vol] Cholesterol in VLDL [Mass/volume] in Serum or Plasma by calculation [facility] Complete Blood Count Auto Di ffon 11-28-2024 Basophils (Bld) [#/Vol] 0.0 10*3/uL Normal 0.0-0.2 The [facility] Comment on above: Result Comment: PERF ORMED BY: [place] [address] PATHOLOGIST TEA AND SPICE SUPERVISOR HEIDY MIRANDA M.D. Performed By: #### P SAS, TSH3, CBC, LIPID, CMP #### [address] Basophils/100 WBC (Bld) 0.5 % Normal . [facility] Comment on above: Performed By: #### P SAS, TSH3, CBC, LIPID, CMP #### [facility] [address] [place] [address] [place] Eosinophils (Bld) [#/Vol] 0.1 10*3/uL Normal 0.0-0.45 The [facility] Comment on above: Performed By: #### P SAS, TSH3, CBC, LIPID, CMP #### [place] [address] [place] Eosinophils/100 WBC (Bld) 3.0 % Normal . [facility] Comment on above: Performed By: #### P SAS, TSH3, CBC, LIPID, CMP #### [address] [place] [address] [place] Erythrocyte distribution width (RBC) [Ratio] 19.5 % High 12.0-14.8 [facility] Comment on above: Performed By: #### P SAS, TSH3, CBC, LIPID, CMP #### [address] Hematocrit (Bld) [Volume fraction] 39.1 % Normal 38.8-50.0 [facility] Comment on above: Performed By: #### P SAS, TSH3, CBC, LIPID, CMP #### [address] Hemoglobin (Bld) [Mass/Vol] 12.6 g/dL Low 13.0-17.0 [facility] Comment on above: Performed By: #### P SAS, TSH3, CBC, LIPID, CMP #### [address] Lymphocytes (Bld) [#/Vol] 1.4 10*3/uL Normal 1.00-4.8 [facility] Comment on above: Performed By: #### P SAS, TSH3, CBC, LIPID, CMP #### [address] Lymphocytes/100 WBC (Bld) 28.5 % Normal . [facility] Comment on above: Performed By: #### P SAS, TSH3, CBC, LIPID, CMP #### [address] MCH (RBC) [Entitic mass] 29.4 pg Normal 27.5-35.2 [facility] Comment on above: Performed By: #### P SAS, TSH3, CBC, LIPID, CMP #### [address] MCV (RBC) [Entitic vol] 91.3 fL Normal 83.5-101 [facility] Comment on above: Performed By: #### P SAS, TSH3, CBC, LIPID, CMP #### [address] Mean Corpuscular HGB Conc 32.2 g/dL Low 32.5-35.6 [facility] Comment on above: Performed By: #### P SAS, TSH3, CBC, LIPID, CMP #### [address] Monocytes (Bld) [#/Vol] 0.4 10*3/uL Normal 0.0-0.8 [facility] Comment on above: Performed By: #### P SAS, TSH3, CBC, LIPID, CMP #### [address] Monocytes/100 WBC (Bld) 7.3 % Normal . [facility] Comment on above: Performed By: #### P SAS, TSH3, CBC, LIPID, CMP #### [address] Neutrophils (Bld) [#/Vol] 3.0 10*3/uL Normal 1.8-7.7 [facility] Comment on above: Performed By: #### P SAS, TSH3, CBC, LIPID, CMP #### [address] Neutrophils/100 WBC (Bld) 60.7 % Normal . [facility] Comment on above: Performed By: #### P SAS, TSH3, CBC, LIPID, CMP #### [address] NRBC% 0.3 /100{WBC} Normal 0-0.5 The [facility] Comment on above: Performed By: #### P SAS, TSH3, CBC, LIPID, CMP #### [address] Platelet mean volume (Bld) [Entitic vol] 11.7 fL High 6.6-10.1 The [facility] Comment on above: Performed By: #### P SAS, TSH3, CBC, LIPID, CMP #### [address] Platelets (Bld) [#/Vol] 126 10*3/uL Low 150-450 [facility] Comment on above: Performed By: #### P SAS, TSH3, CBC, LIPID, CMP #### [facility] [address] RBC (Bld) [#/Vol] 4.28 10*6/uL Normal 3.90-5.60 The [facility] Comment on above: Performed By: #### P SAS, TSH3, CBC, LIPID, CMP #### [facility] [address] WBC (Bld) [#/Vol] 4.9 10*3/uL Normal 4.1-10.5 The [facility] Comment on above: Performed By: #### P SAS, TSH3, CBC, LIPID, CMP #### [address] Comprehensive Metabolic Pane lisy 11-28-2024 Albumin [Mass/Vol] 4.2 g/dL Normal 3.5-5.7 [facility] Comment on above: Order Comment: Reaso n for Exam Hyperlipidemia Reason for Exam: Hyperlipidemia Performed By: #### P SAS, TSH3, CBC, LIPID, CMP #### [address] Albumin/Globulin [Mass ratio] 1.4 {ratio} Normal [facility] Comment on above: Order Comment: Reaso n for Exam Hyperlipidemia Reason for Exam: Hyperlipidemia Performed By: #### P SAS, TSH3, CBC, LIPID, CMP #### [address] ALP [Catalytic activity/Vol] 85 U/L Normal 34-104 [facility] Comment on above: Order Comment: Reaso n for Exam Hyperlipidemia Reason for Exam: Hyperlipidemia Performed By: #### P SAS, TSH3, CBC, LIPID, CMP #### [facility] [address] ALT [Catalytic activity/Vol] 3 U/L Low 7-52 [facility] Comment on above: Order Comment: Reaso n for Exam Hyperlipidemia Reason for Exam: Hyperlipidemia Performed By: #### P SAS, TSH3, CBC, LIPID, CMP #### [facility] [address] Anion gap [Moles/Vol] 8.8 mmol/L Normal 6.0-15.0 [facility] Comment on above: Order Comment: Reaso n for Exam Hyperlipidemia Reason for Exam: Hyperlipidemia Performed By: #### P SAS, TSH3, CBC, LIPID, CMP #### [facility] [address] AST [Catalytic activity/Vol] 17 U/L Normal 13-39 [facility] Comment on above: Order Comment: Reaso n for Exam Hyperlipidemia Reason for Exam: Hyperlipidemia Performed By: #### P SAS, TSH3, CBC, LIPID, CMP #### [facility] [address] Bilirubin [Mass/Vol] 0.4 mg/dL Normal 0.3-1.0 [facility] Comment on above: Order Comment: Reaso n for Exam Hyperlipidemia Reason for Exam: Hyperlipidemia Performed By: #### P SAS, TSH3, CBC, LIPID, CMP #### [facility] [address] [place] [address] [place] Calcium [Mass/Vol] 9.9 mg/dL Normal 8.6-10.3 The [facility] Comment on above: Order Comment: Reaso n for Exam Hyperlipidemia Reason for Exam: Hyperlipidemia Performed By: #### P SAS, TSH3, CBC, LIPID, CMP #### [facility] [address] [place] [address] [place] Chloride [Moles/Vol] 111 mmol/L High 98-107 [facility] Comment on above: Order Comment: Reaso n for Exam Hyperlipidemia Reason for Exam: Hyperlipidemia Performed By: #### P SAS, TSH3, CBC, LIPID, CMP #### [facility] [address] [place] [address] [place] CO2 [Moles/Vol] 27.9 mmol/L Normal 21.0-31.0 The [facility] Comment on above: Order Comment: Reaso n for Exam Hyperlipidemia Reason for Exam: Hyperlipidemia Performed By: #### P SAS, TSH3, CBC, LIPID, CMP #### [facility] [address] [place] [address] [place] Creatinine [Mass/Vol] 1.29 mg/dL Normal 0.70-1.30 [facility] Comment on above: Order Comment: Reaso n for Exam Hyperlipidemia Reason for Exam: Hyperlipidemia Performed By: #### P SAS, TSH3, CBC, LIPID, CMP #### [facility] [address] [place] [id number] [place] GFR/1.73 sq M.predicted MDRD (S/P/Bld) [Vol rate/Area] mL/min/{1.73_m2} Normal [facility] Comment on above: Order Comment: Reaso n for Exam Hyperlipidemia Reason for Exam: Hyperlipidemia Performed By: #### P SAS, TSH3, CBC, LIPID, CMP #### [facility] [address] Globulin (S) [Mass/Vol] 2.9 g/dL Normal [facility] Comment on above: Order Comment: Reaso n for Exam Hyperlipidemia Reason for Exam: Hyperlipidemia Performed By: #### P SAS, TSH3, CBC, LIPID, CMP #### [facility] [address] Glucose [Mass/Vol] 90 mg/dL Normal 70-100 [facility] Comment on above: Order Comment: Reaso n for Exam Hyperlipidemia Reason for Exam: Hyperlipidemia Result Comment: [place] Glucose Reference Range is dependent on time and content of last meal. Glucose of more than 200 mg/dL in a nonstressed, ambulatory subject supports the diagnosis of Diabetes Mellitus. ADA recommended reference range Performed By: #### P SAS, TSH3, CBC, LIPID, CMP #### [facility] [address] [place] [id number] [place] Potassium [Moles/Vol] 3.7 mmol/L Normal 3.5-5.1 [facility] Comment on above: Order Comment: Reaso n for Exam Hyperlipidemia Reason for Exam: Hyperlipidemia Performed By: #### P SAS, TSH3, CBC, LIPID, CMP #### [facility] [address] [place] [id number] [facility] Protein [Mass/Vol] 7.1 g/dL Normal 6.4-8.9 [facility] Comment on above: Order Comment: Reaso n for Exam Hyperlipidemia Reason for Exam: Hyperlipidemia Performed By: #### P SAS, TSH3, CBC, LIPID, CMP #### [facility] [address] Sodium [Moles/Vol] 144 mmol/L Normal 136-145 [facility] Comment on above: Order Comment: Reaso n for Exam Hyperlipidemia Reason for Exam: Hyperlipidemia Performed By: #### P SAS, TSH3, CBC, LIPID, CMP #### [facility] [address] Urea nitrogen [Mass/Vol] 24 mg/dL Normal 7-25 [facility] Comment on above: Order Comment: Reaso n for Exam Hyperlipidemia Reason for Exam: Hyperlipidemia Performed By: #### P SAS, TSH3, CBC, LIPID, CMP #### [facility] [address] Creatinine [Mass/volume] in Serum or PlasmaOrdered By: Ellen Crabtree on 11-28-2024 Creatinine [Mass/Vol] Creatinine [Mass/v olume] in Serum or Plasma 0.70-1.30 [facility] Eosinophils Auto (Bld) [#/Vo l]Ordered By: Ellen Crabtree on 11-28-2024 Eosinophils (Bld) [#/Vol] Automated eosinophil count 0.0-0.45 [facility] Eosinophils/100 WBC Auto (Bl d)Ordered By: Ellen Crabtree on 11-28-2024 Eosinophils/100 WBC (Bld) Automated eosinophil % . [facility] Erythrocyte distribution wid th Auto (RBC) [Ratio]Ordered By: Ellen Crabtree on 11-28-2024 Erythrocyte distribution width (RBC) [Ratio] Erythrocyte distribution width [Ratio] by Automated count High 12.0-14.8 [facility] Globulin Calc (S) [Mass/Vol] Ordered By: Ellen Crabtree on 11-28-2024 Globulin (S) [Mass/Vol] Serum globulin measurement by calculation (mass/volume) [facility] Glucose [Mass/volume] in Ser um or PlasmaOrdered By: Ellen Crabtree on 11-28-2024 Glucose [Mass/Vol] Glucose [Mass/volume ] in Serum or Plasma 70-100 [facility] Comment on above: ADA recommended refe rence rangeRandom Glucose Reference Range is dependent on time and content of last meal. Glucose of more than 200 mg/dL in a nonstressed, ambulatory subject supports the diagnosis of Diabetes Mellitus. Hematocrit Auto (Bld) [Volum e fraction]Ordered By: Ellen Crabtree on 11-28-2024 Hematocrit (Bld) [Volume fraction] Hematocrit [Volume Fraction] of Blood by Automated count 38.8-50.0 [facility] Hemoglobin A1c/Hemoglobin.to jesus in BloodOrdered By: Ellen Crabtree on 11-28-2024 HbA1c (Bld) [Mass fraction] Hemoglobin A1c percentage 4.3-5.6 [facility] Comment on above: Increased risk for d iabetes: 5.7 - 6.4diabetes: >6.4glycemic control for adults with diabetes: <7.0 Hemoglobin [Mass/volume] in BloodOrdered By: Ellen Crabtree on 11-28-2024 Hemoglobin (Bld) [Mass/Vol] Hemoglobin [Mass/volume] in Blood Low 13.0-17.0 [facility] Leukocytes [#/volume] correc jacqueline for nucleated erythrocytes in Blood by Automated counOrdered By: Ellen Crabtree on 11-28-2024 WBC corrected for nucl RBC Auto (Bld) [#/Vol] Leukocytes [#/volume] corrected for nucleated erythrocytes in Blood by Automated coun 4.1-10.5 [facility] Lipid Panelon 11-28-2024 Cholesterol [Mass/Vol] 152 mg/dL Normal 140-200 Th [facility] Comment on above: Order Comment: Reaso n for Exam Hyperlipidemia Reason for Exam: Hyperlipidemia Result Comment: Chol less than 200 mg/dl low risk Chol 201-239 mg/dl borderline risk Chol 240 mg/dl and greater high risk Performed By: #### P SAS, TSH3, CBC, LIPID, CMP #### [address] Cholesterol in HDL [Mass/Vol] 40 mg/dL Normal 23-92 [facility] Comment on above: Order Comment: Reaso n for Exam Hyperlipidemia Reason for Exam: Hyperlipidemia Result Comment: HDL CHOL ATP-III CLASSIFICATION Cardiovascular Risk HDL > or equal to 60 mg/dL LOW HDL < 40 mg/dL HIGH Performed By: #### P SAS, TSH3, CBC, LIPID, CMP #### [facility] [address] Cholesterol.total/Chol esterol in HDL [Mass ratio] 3.8 {ratio} Normal <5.0 [facility] Comment on above: Order Comment: Reaso n for Exam Hyperlipidemia Reason for Exam: Hyperlipidemia Performed By: #### P SAS, TSH3, CBC, LIPID, CMP #### [facility] [address] LDL Cholesterol,Calculated 85 mg/dL Normal 0-100 [facility] Comment on above: Order Comment: Reaso n for Exam Hyperlipidemia Reason for Exam: Hyperlipidemia Result Comment: LDL ATP III CLASSIFICATION LDL less than 100 mg/dL Optimal LDL 100-129 mg/dL Near or above optimal LDL 130-159 mg/dL Borderline high LDL 160-189 mg/dL High LDL greater than 189 mg/dL Very high Performed By: #### P SAS, TSH3, CBC, LIPID, CMP #### [facility] [address] Triglyceride w/Reflex 134 mg/dL Normal 0-149 [facility] Comment on above: Order Comment: Reaso n for Exam Hyperlipidemia Reason for Exam: Hyperlipidemia Result Comment: TRIG ATP III CLASSIFICATION TRIG less than 150 mg/dL Normal TRIG 150-199 mg/dL Borderline high TRIG 200-500 mg/dL High TRIG greater than 500 mg/dL Very high Standard traceable to the Center for Disease Conrtrol and Prevention (CDC) test method. Performed By: #### P SAS, TSH3, CBC, LIPID, CMP #### [facility] [address] [place] [id number] [facility] VLDL CHOLESTEROL 26 mg/dL Normal [facility] Comment on above: Order Comment: Reaso n for Exam Hyperlipidemia Reason for Exam: Hyperlipidemia Performed By: #### P SAS, TSH3, CBC, LIPID, CMP #### [facility] [address] [place] [id number] [place] Lymphocytes Auto (Bld) [#/Vo l]Ordered By: Ellen Crabtree on 11-28-2024 Lymphocytes (Bld) [#/Vol] Lymphocytes [#/volume] in Blood by Automated count 1.00-4.8 [facility] Lymphocytes/100 WBC Auto (Bl d)Ordered By: Ellen Crabtree on 11-28-2024 Lymphocytes/100 WBC (Bld) Lymphocytes/100 leukocytes in Blood by Automated count . [facility] MCH Auto (RBC) [Entitic mass ]Ordered By: Ellen Crabtree on 11-28-2024 MCH (RBC) [Entitic mass] MCH [Entitic mass] by Automated count 27.5-35.2 [facility] MCHC Auto (RBC) [Mass/Vol]Or dered By: lElen Crabtree on 11-28-2024 MCHC (RBC) [Mass/Vol] MCHC [Mass/volume] by Automated count Low 32.5-35.6 [facility] MCV Auto (RBC) [Entitic vol] Ordered By: Ellen Crabtree on 11-28-2024 MCV (RBC) [Entitic vol] MCV [Entitic volume] by Automated count 83.5-101 [facility] Monocytes Auto (Bld) [#/Vol] Ordered By: Ellen Crabtree on 11-28-2024 Monocytes (Bld) [#/Vol] Automated blood monocyte count 0.0-0.8 [facility] Monocytes/100 WBC Auto (Bld) Ordered By: Ellen Crabtree on 11-28-2024 Monocytes/100 WBC (Bld) Automated monocyte % . [facility] Neutrophils Auto (Bld) [#/Vo l]Ordered By: Ellen Crabtree on 11-28-2024 Neutrophils (Bld) [#/Vol] Neutrophils [#/volume] in Blood by Automated count 1.8-7.7 [facility] Neutrophils/100 WBC Auto (Bl d)Ordered By: Ellen Crabtree on 11-28-2024 Neutrophils/100 WBC (Bld) Automated neutrophil % . [facility] No Panel InformationOrdered By: Ellen Crabtree on 11-28-2024 Estimated GFR (CKD-EPI) > 60.0 mL/Min [facility] Creatinine Clearance (Chem N/A [facility] Nucleated erythrocytes [Pres ence] in Blood by Automated countOrdered By: Ellen Crabtree on 11-28-2024 Nucleated RBC Auto Ql (Bld) Nucleated erythrocytes [Presence] in Blood by Automated count 0-0.5 [facility] PSA Screen (Yearly Only)on 0 11-28-2024 PSA Screen (Yearly Only) 0.710 ng/mL Normal 0.000-4.00 0 [facility] Comment on above: Order Comment: Is pa tient <50 yrs? Medicare does not pay <50.: N What is the date of the last PSA Screen?: [id number] Is Medicare the insurance?: Y Did you verify eligibility (Dx Time) check TestViewGp: YES TO ALL Result Comment: Seri al tumor marker results determined by assays using different manufacturers or methods may not be comparable. [facility] drug discovery informatics specialist and method: Harri DXI, CHEMILUMINESCENT IMMUNOASSAY. PERFORMED BY: [place] [address] PATHOLOGIST TEA AND SPICE SUPERVISOR HEIDY MIRANDA M.D. Performed By: #### P SAS, TSH3, CBC, LIPID, CMP #### [facility] [address] Platelet mean volume Auto (B ld) [Entitic vol]Ordered By: Ellen Crabtree on 11-28-2024 Platelet mean volume (Bld) [Entitic vol] Platelet mean volume [Entitic volume] in Blood by Automated count High 6.6-10.1 [facility] Platelets Auto (Bld) [#/Vol] Ordered By: Ellen Crabtree on 11-28-2024 Platelets (Bld) [#/Vol] Platelets [#/volume] in Blood by Automated count Low 150-450 [facility] Potassium [Moles/volume] in Serum or PlasmaOrdered By: Ellen Crabtree on 11-28-2024 Potassium [Moles/Vol] Potassium [Moles/v olume] in Serum or Plasma 3.5-5.1 [facility] Prostate specific Ag [Mass/v olume] in Serum or PlasmaOrdered By: Ellen Crabtree on 11-28-2024 Prostate specific Ag [Mass/Vol] Prostate specific Ag [Mass/volume] in Serum or Plasma 0.000-4.00 0 [facility] Comment on above: Serial tumor marker results determined by assays using different manufacturers or methods may not be comparable.[facility] drug discovery informatics specialist and method:NAMITA UNICEL DXI, CHEMILUMINESCENT IMMUNOASSAY. Protein [Mass/volume] in Ser um or PlasmaOrdered By: Ellen Crabtree on 11-28-2024 Protein [Mass/Vol] Protein [Mass/volume ] in Serum or Plasma 6.4-8.9 [facility] RBC Auto (Bld) [#/Vol]Ordere d By: Ellen Crabtree on 11-28-2024 RBC (Bld) [#/Vol] Erythrocytes [#/volu me] in Blood by Automated count 3.90-5.60 [facility] Serum or plasma albumin/glob ulin mass ratioOrdered By: Ellen Crabtree on 11-28-2024 Albumin/Globulin [Mass ratio] Serum or plasma albumin/globulin mass ratio [facility] Serum or plasma anion gap de terminationOrdered By: Ellen Crabtree on 11-28-2024 Anion gap [Moles/Vol] Serum or plasma an ion gap determination 6.0-15.0 [facility] Serum or plasma total choles terol/high density lipoprotein (HDL) cholesterol mass ratOrdered By: Ellen Crabtree on 11-28-2024 Cholesterol.total/Chol esterol in HDL [Mass ratio] Serum or plasma total cholesterol/high density lipoprotein (HDL) cholesterol mass rat <5.0 [facility] Sodium [Moles/volume] in Ser um or PlasmaOrdered By: Ellen Crabtree on 11-28-2024 Sodium [Moles/Vol] Sodium [Moles/volume ] in Serum or Plasma 136-145 [facility] Thyroid Stimulating Hormoneo n 11-28-2024 TSH Qn 1.06 m[IU]/L Normal 0.45-5.33 [facility] Comment on above: Order Comment: Reaso n for Exam Hyperlipidemia Reason for Exam: Hyperlipidemia Result Comment: PERF ORMED BY: [address] [address] PATHOLOGIST TEA AND SPICE SUPERVISOR HEIDY MIRANDA M.D. Performed By: #### P SAS, TSH3, CBC, LIPID, CMP #### [address] [place] [address] [facility] Thyrotropin [Units/volume] i n Serum or PlasmaOrdered By: Ellen Crabtree on 11-28-2024 TSH Qn Thyrotropin [Units/volume] in Serum or Plasma 0.45-5.33 [facility] Triglyceride [Mass/volume] i n Serum or PlasmaOrdered By: Ellen Crabtree on 11-28-2024 Triglyceride [Mass/Vol] Triglyceride [Mass/volume] in Serum or Plasma 0-149 [facility] Comment on above: TRIG ATP III CLASSIF ICATIONTRIG less than 150 mg/dL NormalTRIG 150-199 mg/dL Borderline highTRIG 200-500 mg/dL High TRIG greater than 500 mg/dL Very highStandard traceable to the Center for Disease Conrtrol and Prevention (CDC) test method. Urea nitrogen [Mass/volume] in Serum or PlasmaOrdered By: Ellen Crabtree on 11-28-2024 Urea nitrogen [Mass/Vol] Urea nitrogen [Mass/volume] in Serum or Plasma 7- [facility] Urology Office/Clinic Noteon 11-28-2024 Urology Office/Clinic Note Urology Office/Clinic Note Chief Complaint Concern for UTI, SP change HPI Staff Pt here for 4 wk cath change. Concerned he has UTI. Reports burning. Denies F/C, N/V. No gross hematuria. Good po intake. Physical Exam Vitals & Measurements HR: 79(Peripheral) RR: 18 BP: 156/94 General: nontoxic, NAD Mouth: moist mucosa Lungs: normal respiratory effort Cardio: regular rate, good distal perfusion Abdomen: nondistended, no suprapubic distention or tenderness Skin: No rashes or suspicious lesions Assessment/Plan 1. Recurrent UTI (N39.0: Urinary tract infection, site not specified) Similar sx Sep 2024. Showed 100k Klebsiella and 50k Enterobacter. Tx'd w Bactrim x 7d. Nontoxic. No signs of sepsis. Sample collected from [facility] [place]. UA shows lg hgb, sm leuk, +nit. Will send for C&S then treat. Pt ok waiting for Cx results prior to abx. Ordered: Change cystostomy tube/simple 97991 E&M of Est. Patient Low 20-29 Min 17013 2. Urinary retention (R33.9: Retention of urine, unspecified) Chronic. SP changed. Return in 4 weeks for next change. 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5 mg Cap-ER Allergies Avelox (Wheal, Eruption, Dyspnea, Urticaria, Itching, Hives) CeleBREX (Hives) clonazePAM (Shortness of breath) erythromycin (Nausea) levoFLOXacin (Dyspnea, Shortness of breath) moxifloxacin (Dyspnea, Eruption, Itching, Urticaria) Social History Alcohol Never., 08/27/2024 Substance Abuse Never., 08/27/2024 Tobacco Former smoker, quit more than 30 days ago Tobacco Use:., 09/27/2024 Family History Family history is negative Immunizations Vaccine Date Status pneumococcal 13-valent vaccine 10/21/2022 Recorded influenza virus vaccine, inactivated 09/18/2022 Recorded influenza virus vaccine, inactivated 09/02/2022 Recorded influenza virus vaccine, inactivated 10/15/2021 Recorded SARS-CoV-2 (COVID-19) mRNA-1273 vaccine 10/15/2021 Recorded SARS-CoV-2 (COVID-19) mRNA-1273 vaccine 01/09/2021 Recorded SARS-CoV-2 (COVID-19) mRNA-1273 vaccine 12/13/2020 Recorded influenza virus vaccine, inactivated 07/17/2020 Recorded influenza virus vaccine, inactivated 08/24/2019 Recorded zoster vaccine, inactivated 01/19/2019 Recorded influenza virus vaccine, inactivated 07/07/2018 Recorded influenza virus vaccine, inactivated 07/01/2017 Recorded influenza virus vaccine, inactivated 08/12/2016 Recorded diphtheria/pertussis, acel/tetanus adult 10/22/2015 Recorded influenza virus vaccine, inactivated 07/23/2015 Recorded hepatitis B adult vaccine 08/16/2002 Recorded hepatitis B adult vaccine 01/27/2002 Recorded pneumococcal 23-valent vaccine 08/13/1995 Recorded Normal [facility] Comment on above: Result Comment: Elec tronically Signed By: LYN MACE PA-C\.br\Date and Time Signed: 11/28/24 16:28 EST WBC Auto (Bld) [#/Vol]Ordere d By: Ellen Crabtree on 11-28-2024 WBC (Bld) [#/Vol] Leukocytes [#/volume ] in Blood by Automated count 4.1-10.5 [facility] Ambulatory Visit Summaryon 0 10-28-2024 Ambulatory Visit Summary Ambulatory Visit Summary ALISIA CORREA :1960 Visit Date:10/28/2024 Ambulatory Visit Instructions Your Care Team Attending Physician - LYN [...] to do next Scheduled Follow-Up Appointments Thursday 11:20 AM EST With: LYN MACE PA-C Where: [facility] [address] [phone]- Medications What How Much When Instructions Unchanged acarbose (acarbose 25 mg oral tablet) Unchanged atorvastatin (atorvastatin 10 mg Tab) Unchanged benzonatate (benzonatate 100 mg Cap) Unchanged carbidopa-levodopa (carbidopa-levodopa 25 mg-100 mg ER Tab) Unchanged diclofenac (diclofenac sodium 75 mg Oral EC Tab) By Mouth 2 times a day Unchanged duloxetine (duloxetine 60 mg oral delayed release capsule) Unchanged ezetimibe (ezetimibe 10 mg Tab) Unchanged fludrocortisone (fludrocortisone 0.1 mg Tab) Unchanged HYDROmorphone (hydromorphone 2 mg Tab) Unchanged midodrine (midodrine 5 mg Tab) Unchanged montelukast (montelukast 10 mg Tab) Unchanged ondansetron (ondansetron 4 mg Tab) Unchanged pregabalin (pregabalin 300 mg Cap) By Mouth 2 times a day Unchanged tolterodine (tolterodine 4 mg Cap-ER) 1 Capsules By Mouth Every day Unchanged topiramate (topiramate 100 mg Tab) By Mouth 2 times a day Unchanged venlafaxine (venlafaxine 37.5 mg Cap-ER) Allergies Avelox (Wheal, Eruption, Dyspnea, Urticaria, Itching, Hives) CeleBREX (Hives) clonazePAM (Shortness of breath) erythromycin (Nausea) levoFLOXacin (Dyspnea, Shortness of breath) moxifloxacin (Dyspnea, Eruption, Itching, Urticaria) Problems Ongoing - Any problem that you are currently receiving treatment for. 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 Durbin's esophagus Benign prostatic hyperplasia with outflow obstruction Diabetes mellitus Hyperlipidemia Patient Survey You may receive a survey via text or e-mail asking about your office visit. Please share your experience with us by completing your survey. We appreciate your feedback and thank you for choosing us for your care. Normal [facility] C Urineon 09-29-2024 Bacteria identified Cx Nom (U) Microbiology PROCEDURE: Urine Culture [R1] SOURCE: U Cath BODY SITE: COLLECTED DATE/TIME: 09/27/2024 12:20 EST RECEIVED DATE/TIME: 09/27/2024 18:26 EST START DATE/TIME: 09/27/2024 18:26 EST FREE TEXT SOURCE: suprapubic chronic carrington RODRI KHAN, LYN MACE PA-C, LYN Crum FINAL REPORTS Final Report [] Verified Date/Time: 09/29/2024 09:03 EST >100,000 cfu/ml Klebsiella pneumoniae 50,000 cfu/ml Enterobacter cloacae SUSCEPTIBILITY RESULTS __ LEGEND: S=Susceptible, N/R=Not Reported, Blank=Data not available, or drug not advisable or tested, I=Intermediate, ESBL=Extended spectrum beta-lactamase, R=Resistant, TFG=Thymidine-dependent strain, BINH=Beta-lactamase positive, SABI=mcg/m;(mg/L), S*=Predicted susceptible interp, R*=Predicted resistant interp Klepne Entclo Antibiotic SABI Dilutn SABI Interp SABI Dilutn SABI Interp Ampicillin >16 R >16 R Ampicillin/ <=8/4 S >16/8 R Sulbactam Aztreonam <=4 S >16 R Cefazolin <=2 S >16 R Cefepime <=2 S <=2 S Ceftazidime <=1 S >16 R Ceftazidime/ <=8 S <=8 S Avibactam Ceftriaxone <=1 S >2 R Cefuroxime <=4 S >16 R Ciprofloxacin <=0.25 S <=0.25 S Ertapenem <=0.5 S 1 I Gentamicin <=2 S <=2 S Levofloxacin <=0.5 S <=0.5 S Meropenem <=1 S <=1 S Nitrofurantoin <=32 S >64 R Piperacillin/ <=8 S 32 I Tazobactam Tetracycline <=4 S <=4 S Tobramycin <=2 S <=2 S Trimethoprim/ <=2/38 S <=2/38 S Sulfa Performing Locations R1: This test was performed at: [facility], [address] [place] [address], [phone] , [place], Normal [facility] Comment on above: Performed By: #### [id number] #### [facility] [address] [place] [id number] facial bones wo conon CT facial bones wo [facility] [place] [address] [place] [address] Scan Report Signed Patient: Alisia Correa SR MR#: [id number] : 1960 Acct:[id number] Age/Sex: 63 / M ADM Date: 09/27/24 Loc: ER Room: Type: PRE ER Attending Dr: Copies to: Benitez Oretga DO Ordering Provider: Benitez Ortega DO Date of Service: 09/27/24 CT/CT cervical spine wo con: fall ([id number]) CT/CT facial bones wo con: fall ([id number]) CT/CT head/brain wo con: fall CT BRAIN/FACIAL BONES WITHOUT CONTRAST: CLINICAL HISTORY: Fall. Hit face/left side. Abrasion to left eye. COMPARISON: None TECHNIQUE: Contiguous axial unenhanced images were obtained through the brain and facial bones. This CT exam was performed using one or more following dose reduction techniques: Automated exposure control, adjustment of the mA and/or kV according to patient size, or use of iterative reconstruction technique. FINDINGS: Brain: There is no evidence of midline shift, intra or extra-axial fluid collection, hemorrhage or CT evidence of stroke. Cortical atrophy with chronic microvascular ischemic changes similar to the prior study. Posterior fossa appears unremarkable. The surrounding soft tissues are normal. Facial Bones No nasal bone fracture. No facial bone fracture. No mandibular fracture. No fracture. Nasal septum is slightly deviated towards the right with spur present. No significant paranasal sinus disease. Mastoid air cells are well pneumatized. No soft tissue swelling. Intraorbital contents appear unremarkable. CT/CT head/brain wo con IMPRESSION: NO ACUTE INTRACRANIAL ABNORMALITY. CT CERVICAL SPINE WITHOUT CONTRAST WITH 3D RECONSTRUCTIONS: COMPARISON: None TECHNIQUE: Spiral axial unenhanced images were obtained through the cervical spine. Sagittal, coronal and 3D volume-rendered reconstructions were also reviewed. This CT exam was performed using one or more following dose reduction techniques: Automated exposure control, adjustment of the mA and/or kV according to patient size, or use of iterative reconstruction technique. FINDINGS: No fracture. Anterior fusion hardware C6-T1. Moderate disc space narrowing C3-C6 with scattered facet joint degenerative changes at approximately 3 mm of anterior subluxation of C4 on C5. No prevertebral soft tissue swelling. Visualized lung apices are clear. IMPRESSION: NO CERVICAL SPINE FRACTURE Impression dictated by: Felicia Saldivar Jr.OAlejandro09/27/2024 5:11 PM Dictation Location: [id number]-[id number] Transcribed By: [facility] 09/27/241710 Dictated By: Steven Shah Jr, DO 09/27/241699 Signed By: 09/27/241710 Normal [facility] ECG 12 lead ECGon 09-27-2024 ECG 12 lead ECG [facility] [place] [address] [place] [address] Electrocardiograph Report Signed Patient: Alisia Correa SR MR#: [id number] : 1960 Acct:[id number] Age/Sex: 63 / M ADM Date: 09/27/24 Loc: ER Room: Type: [facility] ER Attending Dr: Ordering Provider: Benitez Ortega DO Date of Service: 09/27/2408/11/1628 ECG/ECG 12 lead ECG: Headache Copies to: Test Reason : Blood Pressure : 102/68 mmHG Vent. Rate : 62 BPM Atrial Rate : 62 BPM P-R Int : 176 ms QRS Dur : 88 ms QT Int : 430 ms P-R-T Axes : 22 -39 -2 degrees QTcB Int : 436 ms Normal sinus rhythm Confirmed by Benitez ORTEGA DO ([id number]) on 09/27/2024 8:17:17 PM Referred By: Electronically Signed By: Benitez ORTEGA DO Transcribed By: MUS Signed By Benitez Ortega DO 1 11/28/23 [address] [facility] Urology Office/Clinic Noteon 09-27-2024 Urology Office/Clinic Note Urology Office/Clinic Note Chief Complaint catheter change HPI Staff Pt here for 4 wk cath change. Concerned he has UTI. Reports severe burning, increased bladder spasms, increased back pain. Denies F/C, N/V. No gross hematuria. Good po intake. Review of Systems PHQ Score Initial Depression Screen Score: 1 SCORE Physical Exam Vitals & Measurements T: 37.1 ???C(Temporal Artery) HR: 65(Peripheral) RR: 20 BP: 101/71 General: nontoxic, NAD Mouth: moist mucosa Lungs: normal respiratory effort Cardio: regular rate, good distal perfusion Abdomen: nondistended, no suprapubic distention or tenderness Skin: No rashes or suspicious lesions Assessment/Plan 1. UTI symptoms (R39.9: Unspecified symptoms and signs involving the genitourinary system) Nontoxic. No signs of sepsis. Sample collected from fresh carrington. Will send for C&S then treat. Pt ok waiting for Cx results prior to abx. Ordered: E&M of New Patient Low 30-44 Min [id number] 2. Urinary retention (R33.9: Retention of urine, unspecified) Carrington changed. Return in 4 weeks for next change. Ordered: Change cystostomy tube/simple 11716 E&M of New Patient Low 30-44 Min [id number] Follow-up With When Contact Information RODRI KHAN, LYN Crum, URL In 1 month [address] 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 Urinary retention UTI symptoms Historical Durbin's esophagus Benign prostatic hyperplasia with [...] mg Cap, Oral, BID tolterodine 4 mg Cap-ER, 4 mg= 1 cap(s), Oral, Daily, 11 refills topiramate 100 mg Tab, Oral, BID venlafaxine 37.5 mg Cap-ER Allergies Avelox (Wheal, Eruption, Dyspnea, Urticaria, Itching, Hives) CeleBREX (Hives) clonazePAM (Shortness of breath) erythromycin (Nausea) levoFLOXacin (Dyspnea, Shortness of breath) moxifloxacin (Dyspnea, Eruption, Itching, Urticaria) Social History Alcohol Never., 08/27/2024 Substance Abuse Never., 08/27/2024 Tobacco Former smoker, quit more than 30 days ago Tobacco Use:., 09/27/2024 Family History Family history is negative Immunizations Vaccine Date Status pneumococcal 13-valent vaccine 10/21/2022 Recorded influenza virus vaccine, inactivated 09/18/2022 Recorded influenza virus vaccine, inactivated 09/02/2022 Recorded influenza virus vaccine, inactivated 10/15/2021 Recorded SARS-CoV-2 (COVID-19) mRNA-1273 vaccine 10/15/2021 Recorded SARS-CoV-2 (COVID-19) mRNA-1273 vaccine 01/09/2021 Recorded SARS-CoV-2 (COVID-19) mRNA-1273 vaccine 12/13/2020 Recorded influenza virus vaccine, inactivated 07/17/2020 Recorded influenza virus vaccine, inactivated 08/24/2019 Recorded zoster vaccine, inactivated 01/19/2019 Recorded influenza virus vaccine, inactivated 07/07/2018 Recorded influenza virus vaccine, inactivated 07/01/2017 Recorded influenza virus vaccine, inactivated 08/12/2016 Recorded diphtheria/pertussis, acel/tetanus adult 10/22/2015 Recorded influenza virus vaccine, inactivated 07/23/2015 Recorded hepatitis B adult vaccine 08/16/2002 Recorded hepatitis B adult vaccine 01/27/2002 Recorded pneumococcal 23-valent vaccine 08/13/1995 Recorded Normal [facility] Comment on above: Result Comment: Elec tronically Signed By: RODRI KHAN, LYN Saba\Date and Time Signed: 09/27/24 12:38 EST C Urineon 06-16-2024 Bacteria identified Cx Nom (U) Microbiology PROCEDURE: Urine Culture [R1] SOURCE: U Suprapubic BODY SITE: COLLECTED DATE/TIME: 06/14/2024 15:25 EDT RECEIVED DATE/TIME: 06/14/2024 18:43 EDT START DATE/TIME: 06/14/2024 18:43 EDT FREE TEXT SOURCE: WALTER YBARRA, Fidel IBARRA MD, Fidel Hinkle FINAL REPORTS Final Report [] Verified Date/Time: 06/16/2024 12:06 EDT 75,000 cfu/ml Enterobacter cloacae 50,000 cfu/ml Klebsiella pneumoniae SUSCEPTIBILITY RESULTS __ LEGEND: S=Susceptible, N/R=Not Reported, Blank=Data not available, or drug not advisable or tested, I=Intermediate, ESBL=Extended spectrum beta-lactamase, R=Resistant, TFG=Thymidine-dependent strain, BINH=Beta-lactamase positive, SABI=mcg/m;(mg/L), S*=Predicted susceptible interp, R*=Predicted resistant interp Entclo Klepne Antibiotic SABI Dilutn SABI Interp SABI Dilutn SABI Interp Ampicillin >16 R >16 R Ampicillin/ >16/8 R <=8/4 S Sulbactam Aztreonam 16 I <=4 S Cefazolin >16 R <=2 S Cefepime <=2 S <=2 S Ceftazidime >16 R <=1 S Ceftazidime/ <=8 S <=8 S Avibactam Ceftriaxone >2 R <=1 S Cefuroxime >16 R <=4 S Ciprofloxacin <=0.25 S <=0.25 S Ertapenem <=0.5 S <=0.5 S Gentamicin <=2 S <=2 S Levofloxacin <=0.5 S <=0.5 S Meropenem <=1 S <=1 S Nitrofurantoin 64 I <=32 S Piperacillin/ <=8 S <=8 S Tazobactam Tetracycline <=4 S <=4 S Tobramycin <=2 S <=2 S Trimethoprim/ <=2/38 S <=2/38 S Sulfa Performing Locations R1: This test was performed at: [facility], [address] [place] [address], [id number] , , [facility] Comment on above: Performed By: #### [id number] #### [facility] [address] [place] [address] Ambulatory Visit Summaryon 0 06-09-2024 Ambulatory Visit Summary Ambulatory Visit Summary ALISIA CORREA :1960 Visit Date:06/09/2024 Ambulatory Visit Instructions Your Diagnosis Urinary retention Your Care Team Attending Physician - LYN MACE PA-C Primary Care Physician - KUNS DO, ELLEN This Is Your Medications List HYDROmorphone (hydromorphone [...] What to do next Scheduled Follow-Up Appointments 2023 11:00 AM EDT With: Madeline Harry Where: [facility] [address] [place] [address]- Medications What How Much When Instructions Unchanged acarbose (acarbose 25 mg oral tablet) Unchanged atorvastatin (atorvastatin 10 mg Tab) Unchanged benzonatate (benzonatate 100 mg Cap) Unchanged carbidopa-levodopa (carbidopa-levodopa 25 mg-100 mg ER Tab) Unchanged diclofenac (diclofenac sodium 75 mg Oral EC Tab) By Mouth 2 times a day Unchanged duloxetine (duloxetine 60 mg oral delayed release capsule) Unchanged ezetimibe (ezetimibe 10 mg Tab) Unchanged fludrocortisone (fludrocortisone 0.1 mg Tab) Unchanged HYDROmorphone (hydromorphone 2 mg Tab) Unchanged midodrine (midodrine 5 mg Tab) Unchanged montelukast (montelukast 10 mg Tab) Unchanged ondansetron (ondansetron 4 mg Tab) Unchanged pregabalin (pregabalin 300 mg Cap) By Mouth 2 times a day Unchanged tolterodine (tolterodine 4 mg Cap-ER) 1 Capsules By Mouth Every day Unchanged topiramate (topiramate 100 mg Tab) By Mouth 2 times a day Unchanged venlafaxine (venlafaxine 37.5 mg Cap-ER) Allergies Avelox (Hives) CeleBREX (Hives) clonazePAM (Shortness of breath) erythromycin (Nausea) levoFLOXacin (Dyspnea, Shortness of breath) moxifloxacin (Dyspnea, Eruption, Itching, Urticaria) Problems Ongoing - Any problem that you [...] hyperplasia with outflow obstruction Diabetes mellitus Hyperlipidemia Patient Survey You may receive a survey via text or e-mail asking about your office visit. Please share your experience with us by completing your survey. We appreciate your feedback and thank you for choosing us for your care. Normal [facility] Basophils Auto (Bld) [#/Vol] on 04-27-2024 Basophils (Bld) [#/Vol] 0.0 10 3/uL 0.0-0.1 [facility] Basophils/100 WBC Auto (Bld) on 04-27-2024 Basophils/100 WBC (Bld) 0.1 % Low 0.2-2.0 [facility] Eosinophils/100 WBC Auto (Bl d)on 04-27-2024 Eosinophils/100 WBC (Bld) 0.0 % Low 0.9-7.0 [facility] Erythrocyte distribution wid th Auto (RBC) [Ratio]on 04-27-2024 Erythrocyte distribution width (RBC) [Ratio] 15.6 % High 11.0-15.0 [facility] Estimated glomerular filtrat ion rate (GFR) non- Americanon 04-27-2024 GFR/1.73 sq M.predicted among non-blacks MDRD (S/P/Bld) [Vol rate/Area] 37 mL/min/{1.73_m2} Low >=60 [facility] Globulin Calc (S) [Mass/Vol] on 04-27-2024 Globulin (S) [Mass/Vol] 4.5 g/dL [facility] Hematocrit Auto (Bld) [Volum e fraction]on 04-27-2024 Hematocrit (Bld) [Volume fraction] 30.1 % Low 42.0-54.0 [facility] Hemoglobin [Mass/volume] in Bloodon 04-27-2024 Hemoglobin (Bld) [Mass/Vol] 9.6 g/dL Low 14.0-18.0 [facility] Laboratory - Chemistry and C hemistry - challengeon 04-27-2024 Albumin [Mass/Vol] 2.1 g/dL Low 3.4-5.0 [facility] ALP [Catalytic activity/Vol] 121 U/L High 46-116 [facility] ALT [Catalytic activity/Vol] U/L Low 16-63 [facility] AST [Catalytic activity/Vol] 10 U/L Low 15-37 [facility] Bilirubin [Mass/Vol] 0.3 mg/dL 0.2-1.0 [facility] Calcium [Mass/Vol] 8.6 mg/dL 8.5-10.1 [facility] Chloride [Moles/Vol] 105 mmol/L 98-107 [facility] CO2 [Moles/Vol] 30.6 mmol/L 21.0-32.0 [facility] Creatinine [Mass/Vol] 1.83 mg/dL High 0.70-1.30 [facility] GFR/1.73 sq M.predicted MDRD (S/P/Bld) [Vol rate/Area] 45 mL/min/{1.73_m2} Low >=60 [facility] Glucose [Mass/Vol] 153 mg/dL High 74-106 [facility] Potassium [Moles/Vol] 4.2 mmol/L 3.5-5.1 [facility] Protein [Mass/Vol] 6.6 g/dL 6.4-8.2 [facility] Sodium [Moles/Vol] 139 mmol/L 136-145 [facility] Urea nitrogen [Mass/Vol] 41.0 mg/dL High 7.0-18.0 [facility] Urea nitrogen/Creatinine [Mass ratio] 22.4 mg/mg [facility] Laboratory - Hematology and Cell countson 04-27-2024 Immature granulocytes/100 WBC (Bld) 0.4 % 0.0-0.5 [facility] Leukocytes [#/volume] correc jacqueline for nucleated erythrocytes in Blood by Automated counon 04-27-2024 WBC corrected for nucl RBC Auto (Bld) [#/Vol] 6.8 10 3/uL 4.0-11.0 [facility] Lymphocytes Auto (Bld) [#/Vo l]on 04-27-2024 Lymphocytes (Bld) [#/Vol] 0.8 10 3/uL Low 1.2-3.8 [facility] Lymphocytes/100 WBC Auto (Bl d)on 04-27-2024 Lymphocytes/100 WBC (Bld) 12.3 % Low 20.5-60.0 [facility] MCH Auto (RBC) [Entitic mass ]on 04-27-2024 MCH (RBC) [Entitic mass] 28.0 pg 25.9-34.0 [facility] MCHC Auto (RBC) [Mass/Vol]on 04-27-2024 MCHC (RBC) [Mass/Vol] 31.9 g/dL 29.9-35.2 [facility] MCV Auto (RBC) [Entitic vol] on 04-27-2024 MCV (RBC) [Entitic vol] 87.8 fL 80.0-94.0 [facility] Monocytes Auto (Bld) [#/Vol] on 04-27-2024 Monocytes (Bld) [#/Vol] 0.2 10 3/uL Low 0.3-0.8 [facility] Monocytes/100 WBC Auto (Bld) on 04-27-2024 Monocytes/100 WBC (Bld) 3.1 % 1.7-12.0 [facility] Neutrophils Auto (Bld) [#/Vo l]on 04-27-2024 Neutrophils (Bld) [#/Vol] 5.7 10 3/uL 1.4-6.5 [facility] Neutrophils/100 WBC Auto (Bl d)on 04-27-2024 Neutrophils/100 WBC (Bld) 84.1 % High 43.0-75.0 [facility] No Panel Informationon 04-27 Eosinophils # (Auto) 0.0 10 3/uL 0.0-0.7 [facility] Immature Granulocyte # (Auto) 0.03 10 3/uL 0.00-0.03 [facility] Platelet mean volume Auto (B ld) [Entitic vol]on 04-27-2024 Platelet mean volume (Bld) [Entitic vol] 12.9 fL 9.5-13.5 [facility] Platelets Auto (Bld) [#/Vol] on 04-27-2024 Platelets (Bld) [#/Vol] 173 10 3/uL 150-450 [facility] RBC Auto (Bld) [#/Vol]on RBC (Bld) [#/Vol] 3.43 10 6/uL Low 4.70-6.10 [facility] Serum or plasma albumin/glob ulin mass ratioon 04-27-2024 Albumin/Globulin [Mass ratio] 0.5 {ratio} [facility] Serum or plasma anion gap de terminationon 04-27-2024 Anion gap [Moles/Vol] 7.6 mmol/L [facility] Ammonium urate crystals dete ction in stone by infrared spectroscopyon 04-26-2024 Ammonium urate crystals Infrared spectroscopy Ql (Stone) TNP . [facility] Basophils Auto (Bld) [#/Vol] on 04-26-2024 Basophils (Bld) [#/Vol] 0.0 10 3/uL 0.0-0.1 [facility] Basophils/100 WBC Auto (Bld) on 04-26-2024 Basophils/100 WBC (Bld) 0.1 % Low 0.2-2.0 [facility] Calcium bilirubinate measure menton 04-26-2024 Calcium bilirubinate (Stone) [Mass fraction] TNP . [facility] Calcium carbonate (Stone) [M ass fraction]on 04-26-2024 Stone Calcium Carbonate TNP . [facility] Calcium hydrogen phosphate d ihydrate (Stone) [Mass fraction]on 04-26-2024 Stone Calcium Hydrogen Phosphate TNP . [facility] Calcium oxalate dihydrate cr ystals detection in stone by infrared spectroscopyon 04-26-2024 Calcium oxalate dihydrate crystals Infrared spectroscopy Ql (Stone) 60 % . [facility] Calcium oxalate monohydrate crystal detectionon 04-26-2024 Calcium oxalate monohydrate crystals Infrared spectroscopy Ql (Stone) 40 % . [facility] Calcium phosphate measuremen ton 04-26-2024 Calcium phosphate (Stone) [Mass fraction] TNP . [facility] Calculus analysis interpreta tion in stoneon 04-26-2024 Calculus analysis [Interp] TNP . [facility] Calculus analysis [Interp] Comment . [facility] Comment on above: Physician questions regarding Calculi Analysis [facility] at: [phone]. Calculus analysis with calcu silvia photography interpretation in stoneon 04-26-2024 Calculus analysis with calculus photography [Interp] Comment . [facility] Comment on above: Photograph will foll ow under a separate cover Cellular material measuremen t in stone by estimated (mass/mass)on 04-26-2024 Cellular material Est (Stone) [Mass/Mass] TNP . [facility] Cholesterol [Mass/volume] in Serum or Plasmaon 04-26-2024 Cholesterol [Mass/Vol] TNP . [facility] Composition of stoneon 04-26 Composition Nom (Stone) Comment . [facility] Comment on above: Percentage (Represen ts the % composition) Cystine measurementon 2023 Cystine (Unsp spec) [Moles/Vol] TNP . [facility] Determination of color of ca lculuson 04-26-2024 Color (Stone) Brown . [facility] Eosinophils/100 WBC Auto (Bl d)on 04-26-2024 Eosinophils/100 WBC (Bld) 1.0 % 0.9-7.0 [facility] Erythrocyte distribution wid th Auto (RBC) [Ratio]on 04-26-2024 Erythrocyte distribution width (RBC) [Ratio] 15.8 % High 11.0-15.0 [facility] Estimated glomerular filtrat ion rate (GFR) non- Americanon 04-26-2024 GFR/1.73 sq M.predicted among non-blacks MDRD (S/P/Bld) [Vol rate/Area] 28 mL/min/{1.73_m2} Low >=60 [facility] Globulin Calc (S) [Mass/Vol] on 04-26-2024 Globulin (S) [Mass/Vol] 4.1 g/dL [facility] [facility] Hematocrit Auto (Bld) [Volum e fraction]on 04-26-2024 Hematocrit (Bld) [Volume fraction] 30.3 % Low 42.0-54.0 [facility] Hemoglobin [Mass/volume] in Bloodon 04-26-2024 Hemoglobin (Bld) [Mass/Vol] 9.7 g/dL Low 14.0-18.0 [facility] Laboratory - Chemistry and C hemistry - challengeon 04-26-2024 Albumin [Mass/Vol] 1.9 g/dL Low 3.4-5.0 [facility] ALP [Catalytic activity/Vol] 122 U/L High 46-116 [facility] ALT [Catalytic activity/Vol] U/L Low 16-63 [facility] AST [Catalytic activity/Vol] 16 U/L 15-37 [facility] Bilirubin [Mass/Vol] 0.5 mg/dL 0.2-1.0 [facility] Calcium [Mass/Vol] 8.3 mg/dL Low 8.5-10.1 [facility] Chloride [Moles/Vol] 107 mmol/L 98-107 [facility] CO2 [Moles/Vol] 29.0 mmol/L 21.0-32.0 [facility] Creatinine [Mass/Vol] 2.32 mg/dL High 0.70-1.30 [facility] GFR/1.73 sq M.predicted MDRD (S/P/Bld) [Vol rate/Area] 34 mL/min/{1.73_m2} Low >=60 [facility] Glucose [Mass/Vol] 84 mg/dL 74-106 [facility] Magnesium [Mass/Vol] 2.0 mg/dL 1.8-2.4 [facility] Potassium [Moles/Vol] 3.7 mmol/L 3.5-5.1 [facility] Protein [Mass/Vol] 6.0 g/dL Low 6.4-8.2 [facility] Sodium [Moles/Vol] 142 mmol/L 136-145 [facility] Urea nitrogen [Mass/Vol] 55.0 mg/dL High 7.0-18.0 [facility] Urea nitrogen/Creatinine [Mass ratio] 23.7 mg/mg [facility] Laboratory - Hematology and Cell countson 04-26-2024 Immature granulocytes/100 WBC (Bld) 0.5 % 0.0-0.5 [facility] Leukocytes [#/volume] correc jacqueline for nucleated erythrocytes in Blood by Automated counon 04-26-2024 WBC corrected for nucl RBC Auto (Bld) [#/Vol] 13.9 10 3/uL High 4.0-11.0 [facility] Lymphocytes Auto (Bld) [#/Vo l]on 04-26-2024 Lymphocytes (Bld) [#/Vol] 1.3 10 3/uL 1.2-3.8 [facility] Lymphocytes/100 WBC Auto (Bl d)on 04-26-2024 Lymphocytes/100 WBC (Bld) 9.7 % Low 20.5-60.0 [facility] MCH Auto (RBC) [Entitic mass ]on 04-26-2024 MCH (RBC) [Entitic mass] 28.1 pg 25.9-34.0 [facility] MCHC Auto (RBC) [Mass/Vol]on 04-26-2024 MCHC (RBC) [Mass/Vol] 32.0 g/dL 29.9-35.2 [facility] MCV Auto (RBC) [Entitic vol] on 04-26-2024 MCV (RBC) [Entitic vol] 87.8 fL 80.0-94.0 [facility] Measurement of proportion of calculus composed of dried blood (mass/mass)on 04-26-2024 Blood.dried (Stone) [Mass fraction] TNP . [facility] Monocytes Auto (Bld) [#/Vol] on 04-26-2024 Monocytes (Bld) [#/Vol] 0.7 10 3/uL 0.3-0.8 [facility] Monocytes/100 WBC Auto (Bld) on 04-26-2024 Monocytes/100 WBC (Bld) 5.2 % 1.7-12.0 [facility] Neutrophils Auto (Bld) [#/Vo l]on 04-26-2024 Neutrophils (Bld) [#/Vol] 11.6 10 3/uL High 1.4-6.5 [facility] Neutrophils/100 WBC Auto (Bl d)on 04-26-2024 Neutrophils/100 WBC (Bld) 83.5 % High 43.0-75.0 [facility] Newberyite crystals detectio n in stone by infrared spectroscopyon 04-26-2024 Newberyite crystals Infrared spectroscopy Ql (Stone) TNP . [facility] No Panel Informationon 04-26 Stone 2,8 Dihydroxyadenine TNP . [facility] Stone Analysis Disclaimer Comment . [facility] Comment on above: Calculi report will follow via computer, mail or courierdelivery. This test was devlucinao starla and its performance characteristicsdetermined by [employer]. It has not been cleared or approvedby the Food and Drug Administration.Performed at: [facility] [id number] [id number] Director: Diamond Phillips PhD, Phone: [phone] Stone Bilirubinate TNP . [facility] Stone Calcium Palmitate TNP . [facility] Stone Calcium Stearate TNP . Fi relands [facility] Stone Drug or Metabolite TNP . [facility] Stone Other Constituent TNP . [facility] Stone Xanthine TNP . [facility] Eosinophils # (Auto) 0.1 10 3/uL 0.0-0.7 [facility] Immature Granulocyte # (Auto) 0.07 10 3/uL High 0.00-0.03 [facility] Platelet mean volume Auto (B ld) [Entitic vol]on 04-26-2024 Platelet mean volume (Bld) [Entitic vol] 12.1 fL 9.5-13.5 [facility] Platelets Auto (Bld) [#/Vol] on 04-26-2024 Platelets (Bld) [#/Vol] 140 10 3/uL Low 150-450 [facility] RBC Auto (Bld) [#/Vol]on RBC (Bld) [#/Vol] 3.45 10 6/uL Low 4.70-6.10 [facility] Serum or plasma albumin/glob ulin mass ratioon 04-26-2024 Albumin/Globulin [Mass ratio] 0.5 {ratio} [facility] Serum or plasma anion gap de terminationon 04-26-2024 Anion gap [Moles/Vol] 9.7 mmol/L [facility] Size [Entitic volume] of Sto neon 04-26-2024 Size (Stone) [Entitic vol] 2x2 mm . [facility] Comment on above: Multiple pieces rece ived. Dimensions of the largest piecereported. Sodium urate crystals detect ion in stone by infrared spectroscopyon 04-26-2024 Sodium urate crystals Infrared spectroscopy Ql (Stone) TNP . [facility] Specimen source subject [Typ e]on 04-26-2024 Specimen source subject Nom Comment . [facility] Comment on above: Right Ureter Triamterene measurement in c alculuson 04-26-2024 Triamterene (Stone) [Mass fraction] TNP . [facility] Triple phosphate/Total in St oneon 04-26-2024 Triple phosphate (Stone) [Mass fraction] TNP . [facility] Uric acid dihydrate crystals detection in stone by infrared spectroscopyon 04-26-2024 Urate dihydrate crystals Infrared spectroscopy Ql (Stone) TNP . [facility] Basophils Auto (Bld) [#/Vol] on 04-25-2024 Basophils (Bld) [#/Vol] 0.0 10 3/uL 0.0-0.1 [facility] Basophils/100 WBC Auto (Bld) on 04-25-2024 Basophils/100 WBC (Bld) 0.1 % Low 0.2-2.0 [facility] Eosinophils/100 WBC Auto (Bl d)on 04-25-2024 Eosinophils/100 WBC (Bld) 1.3 % 0.9-7.0 [facility] Erythrocyte distribution wid th Auto (RBC) [Ratio]on 04-25-2024 Erythrocyte distribution width (RBC) [Ratio] 14.8 % 11.0-15.0 [facility] Estimated glomerular filtrat ion rate (GFR) non- Americanon 04-25-2024 GFR/1.73 sq M.predicted among non-blacks MDRD (S/P/Bld) [Vol rate/Area] 32 mL/min/{1.73_m2} Low >=60 [facility] Globulin Calc (S) [Mass/Vol] on 04-25-2024 Globulin (S) [Mass/Vol] 3.5 g/dL [facility] Hematocrit Auto (Bld) [Volum e fraction]on 04-25-2024 Hematocrit (Bld) [Volume fraction] 22.3 % Low 42.0-54.0 [facility] Comment on above: RESULTS CALLED TO Philip NELSON)@BY KEREN Monroy at 0514 Hemoglobin [Mass/volume] in Bloodon 04-25-2024 Hemoglobin (Bld) [Mass/Vol] 7.0 g/dL Low 14.0-18.0 [facility] Laboratory - Chemistry and C hemistry - challengeon 04-25-2024 Albumin [Mass/Vol] 1.7 g/dL Low 3.4-5.0 [facility] ALP [Catalytic activity/Vol] 95 U/L 46-116 [facility] ALT [Catalytic activity/Vol] U/L Low 16-63 [facility] AST [Catalytic activity/Vol] 14 U/L Low 15-37 [facility] Bilirubin [Mass/Vol] 0.4 mg/dL 0.2-1.0 [facility] Calcium [Mass/Vol] 8.0 mg/dL Low 8.5-10.1 [facility] Chloride [Moles/Vol] 111 mmol/L High 98-107 [facility] CO2 [Moles/Vol] 24.2 mmol/L 21.0-32.0 [facility] Creatinine [Mass/Vol] 2.09 mg/dL High 0.70-1.30 [facility] GFR/1.73 sq M.predicted MDRD (S/P/Bld) [Vol rate/Area] 39 mL/min/{1.73_m2} Low >=60 [facility] Glucose [Mass/Vol] 74 mg/dL 74-106 [facility] Potassium [Moles/Vol] 3.9 mmol/L 3.5-5.1 [facility] Protein [Mass/Vol] 5.2 g/dL Low 6.4-8.2 [facility] Sodium [Moles/Vol] 142 mmol/L 136-145 [facility] Urea nitrogen [Mass/Vol] 60.0 mg/dL High 7.0-18.0 [facility] Urea nitrogen/Creatinine [Mass ratio] 28.7 mg/mg [facility] Laboratory - Hematology and Cell countson 04-25-2024 Immature granulocytes/100 WBC (Bld) 0.4 % 0.0-0.5 [facility] Leukocytes [#/volume] correc jacqueline for nucleated erythrocytes in Blood by Automated counon 04-25-2024 WBC corrected for nucl RBC Auto (Bld) [#/Vol] 13.8 10 3/uL High 4.0-11.0 [facility] Lymphocytes Auto (Bld) [#/Vo l]on 04-25-2024 Lymphocytes (Bld) [#/Vol] 1.7 10 3/uL 1.2-3.8 [facility] Lymphocytes/100 WBC Auto (Bl d)on 04-25-2024 Lymphocytes/100 WBC (Bld) 12.3 % Low 20.5-60.0 [facility] MCH Auto (RBC) [Entitic mass ]on 04-25-2024 MCH (RBC) [Entitic mass] 28.0 pg 25.9-34.0 [facility] MCHC Auto (RBC) [Mass/Vol]on 04-25-2024 MCHC (RBC) [Mass/Vol] 31.4 g/dL 29.9-35.2 [facility] MCV Auto (RBC) [Entitic vol] on 04-25-2024 MCV (RBC) [Entitic vol] 89.2 fL 80.0-94.0 [facility] Monocytes Auto (Bld) [#/Vol] on 04-25-2024 Monocytes (Bld) [#/Vol] 0.8 10 3/uL 0.3-0.8 [facility] Monocytes/100 WBC Auto (Bld) on 04-25-2024 Monocytes/100 WBC (Bld) 6.0 % 1.7-12.0 [facility] Neutrophils Auto (Bld) [#/Vo l]on 04-25-2024 Neutrophils (Bld) [#/Vol] 11.0 10 3/uL High 1.4-6.5 [facility] Neutrophils/100 WBC Auto (Bl d)on 04-25-2024 Neutrophils/100 WBC (Bld) 79.9 % High 43.0-75.0 [facility] No Panel Informationon 04-25 Eosinophils # (Auto) 0.2 10 3/uL 0.0-0.7 [facility] Immature Granulocyte # (Auto) 0.06 10 3/uL High 0.00-0.03 [facility] Platelet mean volume Auto (B ld) [Entitic vol]on 04-25-2024 Platelet mean volume (Bld) [Entitic vol] 12.9 fL 9.5-13.5 [facility] Platelets Auto (Bld) [#/Vol] on 04-25-2024 Platelets (Bld) [#/Vol] 129 10 3/uL Low 150-450 [facility] RBC Auto (Bld) [#/Vol]on RBC (Bld) [#/Vol] 2.50 10 6/uL Low 4.70-6.10 [facility] Serum or plasma albumin/glob ulin mass ratioon 04-25-2024 Albumin/Globulin [Mass ratio] 0.5 {ratio} [facility] Serum or plasma anion gap de terminationon 04-25-2024 Anion gap [Moles/Vol] 10.7 mmol/L [facility] Basophils/100 WBC Manual cnt (Bld)on 04-24-2024 Basophils/100 WBC (Bld) 0.0 % Low 0.2-2.0 [facility] Eosinophils/100 WBC Manual c nt (Bld)on 04-24-2024 Eosinophils/100 WBC (Bld) 0.0 % Low 0.9-7.0 [facility] Erythrocyte distribution wid th Auto (RBC) [Ratio]on 04-24-2024 Erythrocyte distribution width (RBC) [Ratio] 14.6 % 11.0-15.0 [facility] Estimated glomerular filtrat ion rate (GFR) non- Americanon 04-24-2024 GFR/1.73 sq M.predicted among non-blacks MDRD (S/P/Bld) [Vol rate/Area] 33 mL/min/{1.73_m2} Low >=60 [facility] Globulin Calc (S) [Mass/Vol] on 04-24-2024 Globulin (S) [Mass/Vol] 3.7 g/dL [facility] Hematocrit Auto (Bld) [Volum e fraction]on 04-24-2024 Hematocrit (Bld) [Volume fraction] 25.9 % Low 42.0-54.0 [facility] Hemoglobin [Mass/volume] in Bloodon 04-24-2024 Hemoglobin (Bld) [Mass/Vol] 8.2 g/dL Low 14.0-18.0 [facility] Laboratory - Chemistry and C hemistry - challengeon 04-24-2024 Lactate [Moles/Vol] 1.9 mmol/L 0.4-2.0 [facility] Albumin [Mass/Vol] 1.8 g/dL Low 3.4-5.0 [facility] ALP [Catalytic activity/Vol] 95 U/L 46-116 [facility] ALT [Catalytic activity/Vol] U/L Low 16-63 [facility] AST [Catalytic activity/Vol] 10 U/L Low 15-37 [facility] Bilirubin [Mass/Vol] 0.7 mg/dL 0.2-1.0 [facility] Calcium [Mass/Vol] 7.9 mg/dL Low 8.5-10.1 [facility] Chloride [Moles/Vol] 111 mmol/L High 98-107 [facility] CO2 [Moles/Vol] 23.5 mmol/L 21.0-32.0 [facility] Creatinine [Mass/Vol] 2.02 mg/dL High 0.70-1.30 [facility] GFR/1.73 sq M.predicted MDRD (S/P/Bld) [Vol rate/Area] 40 mL/min/{1.73_m2} Low >=60 [facility] Glucose [Mass/Vol] 97 mg/dL 74-106 [facility] Potassium [Moles/Vol] 3.8 mmol/L 3.5-5.1 [facility] Protein [Mass/Vol] 5.5 g/dL Low 6.4-8.2 [facility] Sodium [Moles/Vol] 142 mmol/L 136-145 [facility] Urea nitrogen [Mass/Vol] 59.0 mg/dL High 7.0-18.0 [facility] Urea nitrogen/Creatinine [Mass ratio] 29.2 mg/mg [facility] Laboratory - Hematology and Cell countson 04-24-2024 Band form neutrophils/100 WBC (Bld) 5.0 % 0-5 [facility] Lymphocytes/100 WBC (Bld) 1.0 % Low 20.5-60.0 [facility] Monocytes/100 WBC (Bld) 1.0 % Low 1.7-12.0 [facility] Leukocytes [#/volume] correc jacqueline for nucleated erythrocytes in Blood by Automated counon 04-24-2024 WBC corrected for nucl RBC Auto (Bld) [#/Vol] 37.6 10 3/uL High 4.0-11.0 [facility] Comment on above: RESULTS CALLED TO NITHYA BENTON RN MCH Auto (RBC) [Entitic mass ]on 04-24-2024 MCH (RBC) [Entitic mass] 29.0 pg 25.9-34.0 [facility] MCHC Auto (RBC) [Mass/Vol]on 04-24-2024 MCHC (RBC) [Mass/Vol] 31.7 g/dL 29.9-35.2 [facility] MCV Auto (RBC) [Entitic vol] on 04-24-2024 MCV (RBC) [Entitic vol] 91.5 fL 80.0-94.0 [facility] No Panel Informationon 04-24 Absolute Basophils (Manual) 0.00 10 3/uL 0.00-0.10 [facility] Band Neutrophils # (Manual) 1.9 10 3/uL High 0.0-0.3 [facility] Eosinophils # (Manual) 0.00 10 3/uL 0.00-0.70 [facility] Lymphocytes # (Manual) 0.37 10 3/uL Low 1.20-3.80 [facility] Monocytes # (Manual) 0.37 10 3/uL 0.30-0.80 [facility] Segmented Neutrophils # (Manual) 34.96 10 3/uL High 1.4-6.5 [facility] Platelet mean volume Auto (B ld) [Entitic vol]on 04-24-2024 Platelet mean volume (Bld) [Entitic vol] 12.8 fL 9.5-13.5 [facility] Platelets Auto (Bld) [#/Vol] on 04-24-2024 Platelets (Bld) [#/Vol] 195 10 3/uL 150-450 [facility] RBC Auto (Bld) [#/Vol]on RBC (Bld) [#/Vol] 2.83 10 6/uL Low 4.70-6.10 [facility] Segmented neutrophils/100 WB C Manual cnt (Bld)on 04-24-2024 Segmented neutrophils/100 WBC (Bld) 93.0 % [facility] Serum or plasma albumin/glob ulin mass ratioon 04-24-2024 Albumin/Globulin [Mass ratio] 0.5 {ratio} [facility] Serum or plasma anion gap de terminationon 04-24-2024 Anion gap [Moles/Vol] 11.3 mmol/L [facility] Serum procalcitonin measurem enton 04-24-2024 Procalcitonin [Mass/Vol] 66.17 ng/mL High 0.00-0.50 [facility] Basophils Auto (Bld) [#/Vol] on 04-23-2024 Basophils (Bld) [#/Vol] 0.0 10 3/uL 0.0-0.1 [facility] Basophils/100 WBC Auto (Bld) on 04-23-2024 Basophils/100 WBC (Bld) 0.2 % 0.2-2.0 [facility] Eosinophils/100 WBC Auto (Bl d)on 04-23-2024 Eosinophils/100 WBC (Bld) 0.3 % Low 0.9-7.0 [facility] Erythrocyte distribution wid th Auto (RBC) [Ratio]on 04-23-2024 Erythrocyte distribution width (RBC) [Ratio] 14.5 % 11.0-15.0 [facility] Estimated glomerular filtrat ion rate (GFR) non- Americanon 04-23-2024 GFR/1.73 sq M.predicted among non-blacks MDRD (S/P/Bld) [Vol rate/Area] 49 mL/min/{1.73_m2} Low >=60 [facility] Fibrin D-dimer [Presence] in Platelet poor plasma by Latex agglutinationon 04-23-2024 Fibrin D-dimer LA Ql (PPP) 1.33 mg/L FEU High <=0.59 [facility] Comment on above: RESULTS CALLED TO DR Alejandro Clark in D-Dimer concentration observed withthromboembolic events can be variable due to localization,size, and age of the thrombus. Therefore, a thromboembolicevent cannot be diagnosed with certainty on the basis of thereference range. D-Dimers may also be elevated for a varietyof disorders including advanced age, , coronarydisease, cancer, liver disease, infection, inflammation,hematoma, DIC, trauma, post-surgery, diabetes, thrombolyticor anticoagulant therapy, stress, and generalizedhospitalization. Globulin Calc (S) [Mass/Vol] on 04-23-2024 Globulin (S) [Mass/Vol] 4.6 g/dL [facility] Hematocrit Auto (Bld) [Volum e fraction]on 04-23-2024 Hematocrit (Bld) [Volume fraction] 36.3 % Low 42.0-54.0 [facility] Hemoglobin [Mass/volume] in Bloodon 04-23-2024 Hemoglobin (Bld) [Mass/Vol] 11.1 g/dL Low 14.0-18.0 [facility] INR in Platelet poor plasma by Coagulation assayon 04-23-2024 INR Coag (PPP) [Relative time] 1.09 {INR} [facility] Comment on above: DESIRED INR:2.0-3.0 CONDITIONS NOT LISTED BELOW2.5-3.5 FOR PROSTHETIC HEART VALVE REPLACEMENT2.5-3.5 RECURRENT THROMBOSIS Laboratory - Chemistry and C hemistry - challengeon 04-23-2024 HCO3 (Bld) [Moles/Vol] 19.4 mmol/L Low 22.0-26.0 [facility] Lactate [Moles/Vol] 1.5 mmol/L 0.4-2.0 [facility] Bilirubin Ql (U) Negative NEGATIVE [facility] Glucose (U) [Mass/Vol] Negative NEGATIVE [facility] Ketones Ql (U) Negative NEGATIVE [facility] pH (U) 7.5 [pH] 5.0-9.0 [facility] Specific gravity (U) [Rel density] 1.020 1.005-1.02 5 [facility] Urobilinogen Qn (U) 0.2 {Phillip'U}/dL 0.2-1.0 [facility] Albumin [Mass/Vol] 2.6 g/dL Low 3.4-5.0 [facility] ALP [Catalytic activity/Vol] 119 U/L High 46-116 [facility] ALT [Catalytic activity/Vol] 9 U/L Low 16-63 [facility] AST [Catalytic activity/Vol] 15 U/L 15-37 [facility] Bilirubin [Mass/Vol] 0.8 mg/dL 0.2-1.0 [facility] Calcium [Mass/Vol] 8.8 mg/dL 8.5-10.1 [facility] Chloride [Moles/Vol] 108 mmol/L High 98-107 [facility] CO2 [Moles/Vol] 23.3 mmol/L 21.0-32.0 [facility] Creatinine [Mass/Vol] 1.45 mg/dL High 0.70-1.30 [facility] GFR/1.73 sq M.predicted MDRD (S/P/Bld) [Vol rate/Area] 59 mL/min/{1.73_m2} Low >=60 [facility] Glucose [Mass/Vol] 131 mg/dL High 74-106 [facility] Natriuretic peptide B (Bld) [Mass/Vol] 1488.0 pg/mL High <=900.0 [facility] Comment on above: RESULTS CALLED TO DR Alejandro CRAMER Potassium [Moles/Vol] 3.8 mmol/L 3.5-5.1 [facility] Protein [Mass/Vol] 7.2 g/dL 6.4-8.2 [facility] Sodium [Moles/Vol] 145 mmol/L 136-145 [facility] Urea nitrogen [Mass/Vol] 47.0 mg/dL High 7.0-18.0 [facility] Urea nitrogen/Creatinine [Mass ratio] 32.4 mg/mg [facility] Laboratory - Hematology and Cell countson 04-23-2024 Immature granulocytes/100 WBC (Bld) 1.0 % High 0.0-0.5 [facility] Laboratory - Microbiology an d Antimicrobial susceptibilityon 04-23-2024 S. agalactiae Org specific cx Ql (Vag fld) Not detected NOT DETECTE [facility] SARS-CoV-2 (COVID-19) RNA KELLIE+probe Ql (Unsp spec) Negative NEGATIVE [facility] Comment on above: This test has not be en FDA cleared or approved, but has beenauthorized by the FDA under an Emergency Use Authorization(EUA) for use by authorized laboratories certified underCLIA that meet the requirements to perform moderate or highcomplexity testing. This test has been authorized only forthe detection of proteins from SARS-CoV-2, not for any otherviruses or pathogens. The emergency use of this test isauthorized for the duration of the declaration thatcircumstances exist justifying the authorization ofemergency use of in vitro diagnostic tests for detectionand/or diagnosis of Covid-19 under section 564(b)(1) of theAct, 21 U.S.C. 360bbb-3(b)(1), unless the declaration isterminated or authorization is revoked sooner. Laboratory - Microbiology an d Antimicrobial susceptibilityOrdered By: Mercedez Cramer on 04-23-2024 Bacteria identified Cx Nom (U) [facility] Laboratory - Specimen inform ationon 04-23-2024 Appearance (U) CLOUDY Abnormal CLEAR [facility] Color (U) YELLOW YELLOW [facility] Laboratory - Urinalysison Leukocyte esterase Test strip Ql (U) MODERATE Abnormal NEGATIVE [facility] Mucus Ql (Urine sed) TRACE Abnormal NONE SEEN [facility] Nitrite Ql (U) Positive Abnormal NEGATIVE [facility] Protein Ql (U) 100 mg/dL Abnormal NEG/TRACE [facility] Leukocytes [#/volume] correc jacqueline for nucleated erythrocytes in Blood by Automated counon 04-23-2024 WBC corrected for nucl RBC Auto (Bld) [#/Vol] 15.8 10 3/uL High 4.0-11.0 [facility] Lymphocytes Auto (Bld) [#/Vo l]on 04-23-2024 Lymphocytes (Bld) [#/Vol] 2.4 10 3/uL 1.2-3.8 [facility] Lymphocytes/100 WBC Auto (Bl d)on 04-23-2024 Lymphocytes/100 WBC (Bld) 15.3 % Low 20.5-60.0 [facility] MCH Auto (RBC) [Entitic mass ]on 04-23-2024 MCH (RBC) [Entitic mass] 28.4 pg 25.9-34.0 [facility] MCHC Auto (RBC) [Mass/Vol]on 04-23-2024 MCHC (RBC) [Mass/Vol] 30.6 g/dL 29.9-35.2 [facility] MCV Auto (RBC) [Entitic vol] on 04-23-2024 MCV (RBC) [Entitic vol] 92.8 fL 80.0-94.0 [facility] Monocytes Auto (Bld) [#/Vol] on 04-23-2024 Monocytes (Bld) [#/Vol] 0.1 10 3/uL Low 0.3-0.8 [facility] Monocytes/100 WBC Auto (Bld) on 04-23-2024 Monocytes/100 WBC (Bld) 0.7 % Low 1.7-12.0 [facility] Neutrophils Auto (Bld) [#/Vo l]on 04-23-2024 Neutrophils (Bld) [#/Vol] 13.0 10 3/uL High 1.4-6.5 [facility] Neutrophils/100 WBC Auto (Bl d)on 04-23-2024 Neutrophils/100 WBC (Bld) 82.5 % High 43.0-75.0 [facility] No Panel Informationon 04-23 Raf Test Positive POSITIVE [facility] Arterial Blood Base Excess -6.3 mmol/L Low <2.0-2.0 [facility] Arterial Blood Oxygen Saturation >100.0 % [facility] Arterial Blood Partial Pressure CO2 35.7 mm[Hg] 35.0-45.0 [facility] Arterial Blood Partial Pressure O2 307.0 mm[Hg] High 80.0-100.0 [facility] Arterial Blood pH 7.344 Low 7.350-7.45 0 [facility] Blood Gas Liter Flow 15 [facility] Blood Gas Sample Site RR [facility] Oxygen Delivery Device NRBM [facility] A.calcoaceticus-ch[place] samantha cmplx PCR Not detected NOT DETECTE [facility] Bacteroides fragilis (PCR) Not detected NOT DETECTE [facility] Blood Culture Source Blood [facility] Tiffany albicans (PCR) Not detected NOT DETECTE [facility] Tiffany auris (PCR) Not detected NOT DETECTE [facility] Tiffany glabrata (PCR) Not detected NOT DETECTE [facility] Tiffany krusei (PCR) Not detected NOT DETECTE [facility] Tiffany parapsilosis (PCR) Not detected NOT DETECTE [facility] Tiffany tropicalis (PCR) Not detected NOT DETECTE [facility] Crypto neoformans/gattii (PCR)(LAB) Not detected NOT DETECTE [facility] CTX-M ESBL (PCR) Not detected NOT DETECTE [facility] Enterobacter cloacae complex (PCR) Detected Abnormal NOT DETECTE [facility] Comment on above: RESULTS CALLED TO CHARLIE THAO RN Enterobacterales (PCR) Detected Abnormal NOT DETECTE [facility] Comment on above: RESULTS CALLED TO CHARLIE THAO RN Enterococcus faecalis PCR Not detected NOT DETECTE [facility] Enterococcus faecium PCR Not detected NOT DETECTE [facility] Escherichia coli Result Not detected NOT DETECTE [facility] Haemophilus influenzae DNA Not detected NOT DETECTE [facility] IMP (blaIMP) Carbap Res Gene (PCR) Not detected NOT DETECTE [facility] Klebsiella aerogenes (PCR) Not detected NOT DETECTE [facility] Klebsiella oxytoca (PCR) Not detected NOT DETECTE [facility] [facility] Klebsiella pneumoniae group (PCR) Not detected NOT DETECTE [facility] KPC (blaKPC) Detection (PCR) Not detected NOT DETECTE [facility] Listeria monocytogenes (PCR) Not detected NOT DETECTE [facility] MCR-1 Resistance Gene Not detected NOT DETECTE [facility] mecA/C & MREJ Antimicrob Resist Gen NOT APPLICABLE NOT DETECTE [facility] mecA/C-Methicillin Resistance Gene NOT APPLICABLE NOT DETECTE [facility] NDM (blaNDM) Detection (PCR) Not detected NOT DETECTE [facility] Neisseria meningitidis (PCR) Not detected NOT DETECTE [facility] Proteus species (PCR) Not detected NOT DETECTE [facility] Pseudomonas aeruginosa (PCR) Not detected NOT DETECTE [facility] Salmonella spp. (PCR) Not detected NOT DETECTE [facility] Serratia marcescens (PCR) Not detected NOT DETECTE [facility] Staphylococcus aureus (PCR)(LAB) Not detected NOT DETECTE [facility] Staphylococcus epidermidis (PCR) Not detected NOT DETECTE [facility] Staphylococcus lugdunensis (TEM-PCR Not detected NOT DETECTE [facility] Staphylococcus species (PCR) Not detected NOT DETECTE [facility] Stenotroph. maltophilia (PCR) Not detected NOT DETECTE [facility] Streptococcus pneumoniae (PCR) Not detected NOT DETECTE [facility] Streptococcus pyogenes (PCR)(LAB) Not detected NOT DETECTE [facility] Streptococcus species (PCR) Not detected NOT DETECTE [facility] Syn OXA-48-like Carb Res Gene (PCR) Not detected NOT DETECTE [facility] Jessica/B-Vancomycin Resistance Genes NOT APPLICABLE NOT DETECTE [facility] VIM (blaVIM) Carbap Res Gene (PCR) Not detected NOT DETECTE [facility] Urine Bacteria MODERATE #/HPF Abnormal NONE SEEN [facility] Urine Culture Reflexed YES [facility] Urine Microscopic Review YES [facility] Urine Occult Blood SMALL Abnormal NEGATIVE [facility] Urine Other Casts NONE SEEN #/LPF NONE SEEN [facility] Urine Other Crystals None Seen #/HPF None Seen [facility] Urine RBC 10-20 #/HPF Abnormal 0-2 [facility] Urine Squamous Epithelial Cells FEW #/LPF Abnormal NONE/RARE [facility] Urine WBC 20-50 #/HPF Abnormal NONE SEEN [facility] Eosinophils # (Auto) 0.1 10 3/uL 0.0-0.7 [facility] Immature Granulocyte # (Auto) 0.16 10 3/uL High 0.00-0.03 [facility] Troponin I High Sensitivity 8.3 pg/mL 4.0-76.1 [facility] Comment on above: CUT-OFF POINTS HAVE BEEN ESTABLISHED BASED ON THE FOURTHUNIVERSAL DEFINITION OF MYOCARDIAL INFARCTION. THE UPPERREFERENCE LIMIT (URL) OF TROPONIN, DEFINED THE 99THPERCENTILE OF cTnI DISTRIBUTION IN A REFERENCE POPULATION,HAS BEEN CONFIRMED THE DECISION THRESHOLD FOR MIDIAGNOSIS.99TH PERCENTILE = 76.2 PG/MLNOTE: HIGH-SENSITIVITY TROPONIN ASSAY IS NOT INTENDED TO BEUSED IN ISOLATION BUT SHOULD BE INTERPRETED IN CONJUNCTIONWITH OTHER DIAGNOSTIC AND CLINICAL INFORMATION. No Panel InformationOrdered By: Mercedez Cramer on 04-23-2024 Blood Culture 2 [facility] Blood Culture 1 [facility] Platelet mean volume Auto (B ld) [Entitic vol]on 04-23-2024 Platelet mean volume (Bld) [Entitic vol] 12.5 fL 9.5-13.5 [facility] Platelets Auto (Bld) [#/Vol] on 04-23-2024 Platelets (Bld) [#/Vol] 318 10 3/uL 150-450 [facility] Prothrombin time (PT)on PT Coag (PPP) [Time] 11.5 s 9.0-11.6 [facility] RBC Auto (Bld) [#/Vol]on RBC (Bld) [#/Vol] 3.91 10 6/uL Low 4.70-6.10 [facility] Serum or plasma albumin/glob ulin mass ratioon 04-23-2024 Albumin/Globulin [Mass ratio] 0.6 {ratio} [facility] Serum or plasma anion gap de terminationon 04-23-2024 Anion gap [Moles/Vol] 17.5 mmol/L [facility] Coding Summary.on 04-13-2024 Coding Summary. RBYDZgta40GEl0wHs+PG hlYWQ +FP0AMSRkT56ftCMozS7hX6XP TElOSywgQVBQTElOSyIgbmFtZ L1dwNCcZJJw IC8+VL9yOWQbPvbffIZqo4K6p IU9O15voz5gIUdevKY7AOSzSa Qjrtean4zrwWd9DMqgJconGnR t NDOpnU56IMF5yK47Hm35fDLjj WHjr8vdjYr1UyPnDDPvBIR2lW fnHPoxm4AdXYLzE04fbMYse1B 6 QQRybMyzhCSnEtIyaJF0dI0oV Piplmjfl8esukdsAav1mo96vO Cyr1M8iPP9G1ZprqU0PCAvqSB g CmdhiRFRaM7nsmksp6nveiluX rTtYBPcMIm1PLd9LURgkWemLd PxMI78QFZ1QWHukhMeX0FxUXP s nBntGoT8u8Q7Dx8DK0XTPgxgI 1VNTUFSWTwvdGQ+KV61so53A7 HeAecmPrc6UACkVNQ9nTY0eO9 n RTXmGBpma3B4fIL1I4VyhmDhk h2ra7ruWMEgXVyvJ73ldIKaa6 I6DBSfdZE1CNXdzBmtGtQkrE4 3 Oyc+SEWvqTczu7HfMvnwt5hdq 2wnaVz4NdrdNXXpjhQhfBxaZD B7m4UlZp3kRJRahDK1gGG3sC2 i FyBbTpI7XKdlO860LsZsuRLfX uhbI81oQ9DgdMS+TIUpNtr1CF ExoRlePI1vZ0HsBPEzefkmyXM m uJaxLT4jCIMfkpegRYIltX3eE AAcT5z1YyPqJcJ0PRfvK8OwRV BuhlibSq55qT7eNyPxZrX7VUw u L3MzjzT5JLCilOFnCJcrLUU0P 28ze4J9HZCbGCSiAFP0jVS7bZ 1hbGlnbjogbGVmdDsgdmVydGl j PGapAMpyH597KQHlrGtdHnThW GluZyBEYXRlOiAgMDYvMjYvMj AyNDwvdGQ+XAUxJWM2sNfcBFU n hOBfUHnoNy4zaEmvxRaeWD7rR EQyeuqdNABtbS9iTVYlsBCfaU miVX4tINHtmhvuv626GeXhMXF 0 CCRbnGZtV7EeeY3nFtScNQOcD JDkU6DldLFuMLilE378ITsoCs P3BCGsodJhB9EqJTAtsBmuRxM 0 x2I8Sk5Qz2NsdecjT4HmpYMfL wVfYhtvQIe0B1FgJadtnLD+PC 57EVIzUA63FEp2WQN9xWekKQc i TEEhT0LsbR4sFgSgEDIaVFGiZ yc+PHRhYmxlIHdpZHRoPScxMD JdVtZjcKtnDE1uTy3nYYScYUJ v oQkqtKFfMgKlv9tdHYGgDXgtQ S7arSyjI1ZibKA8QLBli0e5Yk 49P85qA3NwyQG+LOCkvCR3hUV 0 wA8jYaRkQrG6LKpnB074GmOno GLgIoaik4pdk0tolLl9IhU6OQ KblqXdxRezPDO6f6KaOg35V79 s IHdpZHRoPSIxNSUiIHZhbGlnb m9obQ1xUs6+CVGfcZO3gSI7qK 3rUuTfDkS6KObgK506OoElbDX v Bmnvd7kpv7ojfWz6IbAzHBJap sOprJwqFHV0w1RkPq98H8VoxW rre1OsSby7yh09jWIdy4M7rNH 9 Z1FnHYBsoenijYYbqBxpRL2fL DYztxfbAMYtdL0aMVYdZ9l0Dy QiTuJ7OPceK1CwdgR2IQPisUP g EDIwfKPYgL1ehmkot7zhqmfwC sPrASWcYIk4CEx2MSFrrZwoDo XdIDK1RqU4DUO0uVCyxO2leSd n dendiC1vXlp+DKZ2iQGzxGSYH C3oMffccNR+LJNdODE4zOytQL kjZZAgfL8gPXJkQ9i5WyYfAsV 1 XMgbD0AkumX3LVSreWMbHXPou VSCaC2sjwqxj2xkgnjyYaAfVW MsPHl6COp7GRAljRmmGlXxPUO 0 LhT2MEY3eQXbmR3dnKfgzkgph G9wOyc+NrfhtRwpHWK0MPy5R8 FfKdj3GTHtyExnRG9jqRWaRBx u Sz0bxUuuwDryMY6pTKZtvoxhg 072AsHhm0ulDCDodMXpNDpaNM G1F59km4Y8YSLnGHUhGWD7nIG 4 yM7qoRjyjwsceWTzuDnknoTaa ZzqTJsvOKpaV764SBMwfJhqDf NfCFr6P8KiXhz4SXDhmFjdZM2 n eFMkSNhwYx5xpVlfgGmpKQ3aP LSudhhdo592AhYvc6xpQFNttF QzADczEAV4X12sg2C0HTOuZJX w AZR7kDV4pV2bbJfumttvwAPrk OlvonOckGcePCejXVpcS264VV SvsIscPzVkwQc2E4IrWxc5YUY z rErmAT7pmMOyPEydOg9heBanj PynVZ4bWLZgsfush712RrXna8 byXVZstMLcOCkuWTQ5P05ut1S 6 CRTtSVVeDJV2sUX4iG2grRkat jogbGVmdDsgdmVydGljYWwtYW rlA139KJMttGftRtIlbVixzkC g NNlrNEn5P6GiHbgxnXT+PC90Y KAvKE10uDCisIMcu8zgeMf0Uv BfPSUqBUK7qDbcNKtau8WnTUN t P08tmXQoz4Y4ZDMhaAplaDNuA hOkbTX1cG6aPGynephma8nczg ufRegzc7prhz65eE92M79pVVb p QRGhYIZyIAAxBRSbyIxbtc0ln G9wIi8+DOWwuII6aAA4gE0tQI GzIaA0OLqwQ657PiKkzOXrNsh j u1lmb3jsxNc3KgX0LVEgvxDyv PqkAUE2v8IeUo35G68eXWxjOU AsOKPtKARsSWDkiAjcfr5qqN7 w Ii8+GHRyrAG0pIZ7gW8kZuTrP kW1HLulW371KhFebPPeNnnxR8 5eP1DchXX+PUIbQon1NXQbwDx s XY2zwJNhGTouZt3jPYW1PiJdD zAeNKioO5RqGRQhurxagqyxyL X3MXCwEIFlzA54Kk6xpCssAHV w uIIBxJ2oshwrm1kyuonwQyRoT RSzGSt8ZGd2DFQlgExqGqOqPF Q5PbH0BMB2zWUniS0jcFqvqtb g qH6eT0SvNNBwmkshXg30rS1wI lWxWeY8VTyeYti+O9UUXPArPE NIQVJMRVMgTDwvdGQ+PHRkIHN 0 yJphIUmrBPLabU2wXGTdS5n2S wEwOwW1OIbqD6LyYRUkedpvUu 24bP5fMtSyByH6JXmzR4VkswT 6 JVSkhJUlGTrnNGM4S57zx1S8L ETwCEMsTYY8jJZ1tI8eiWwobt ogbGVmdDsgdmVydGljYWwtYWx p L861LPVmyNtsBoDpCpN9YnA0C Kj2M4OdAam2XWWtsQppBS7uwG PlJVkeQs3wvKbgcDmtZP6pATN p ulveTYWxkJ0jIIFmlOCxkEybJ T3hHZAvcpqoy998XlRpGWO4TI XpiIQrO8DooX7gFaWdVRHqZSV w E6OlkPQkAEunO893PEvvBfF8U SKtnuSkH9GoXVRlcVrxYuX9v7 M7Ai59EWNFQTXykuqroQF+PHR k OOS2aSfhEWvpJRNvdQ6wMRFpP 3k8SqYhZvN9BRwvC8VdEHIvld raNg88zC6yYnImBnE9XWpgN0Q v ehE7LEWnpKQsIBqoWHW5F80kh 6T5TYKtNCXqZFH6gEW7dQ0euX lnbjogbGVmdDsgdmVydGljYWw t BFvnQ242JYBiuZejQz7dvOU6D 5IbHgq5BYOmrNguGN8trXIdQQ llXu3atHlsjAckAG0iUAXgded w KZShuH5sFNUriZLigNzrNQ4yI IGgzxvzs410WxNuBMV4XYOwwZ WdG8BnxR8zWvXnEGZkFOEzF0H l hUGqOKnnK740KOorCgX5ELKte kSrC2CkUHLjiOztAcR7d2Y4Zh 7PDZDeKXIqlOMqZiN3Z7NkNxr v dHI+FJ87AXYhCD29mCEuwFAyf 6jglWz5MnQxRZAmDWE3iUxpZB elc0FrEDXlV06awQHfl3N0WNS v wOzmcZQlMwZrfGW9qJ7gHJwix ohav8yqyrzpDwkrz0dpfy96pZ 50G59pWDadLDMiLRNhOVSgVFE h nScyfo4rwZ9sAq6+IMFfwMS0c JN5sX9eDpYpCnA5HDppC893Cs JrmIOkVjkiq6sln6shaHr0BjJ w UODyhlSlzZliAZP3c0ZdSt99K 29sIHdpZHRoPSIyMCUiIHZhbG wifm5xiI1rRl3+VP0ky5zgrq6 1 uI40uFV+DBMvJDC2cUhjWIewF LUvqF7hRBxoCfP7RIVrYlJreE 46oSPtXCamDl8kvEiydJctVJ7 w IEFegvcoq327UmYnu9izZDVrz EDdURpaVGZ3K33jo1H2BXGbYV HiIYW8eBT7yA0vqWqwojqcbYD m mPigftSwuUtxCBlfUQdkV662V ACzgJonPmYwdRQhS6msspQOLD 1lOjwvdGQ+MAVlEHU6gBtzYPs w OHPvsO3aLEQmT3z0KhOsNeU0W VkyV0WgrdT2UVIxwYBmPLIbdA JNyV7ucoqkt9okoqgeAuLcXYQ w ICp0JFb3RTNeiLhiXcUiUAA3W mG5YAF7tDTroJ4mkApppwrutG 9wOyc+RklOOjwvdGQ+PHRkIHN 0 eBtvPKtfIWUquJ6nICCmV8y0J zQbRbZ4ZOvqF6OlluJ2GBKnsY MrESJucPWIcK2sblibz6ulqlu g LuUgUWVfCLu2XAp6DKXilWggN nMnLIB3DjS8GGE0dBIruZ1xfV lodywlsN6sAyl+TVJOOjwvdGQ + RQGwWOX1jQptAVlrPODagI7yS MOjL4m7AqPoKaC0QJciJ4Ldww W1OFRyjMLpYAQagULFjP8jtjh j a8umykcyKnAkEGRgKDz8DCo6T ALgtGreYpTvANS5ToK3MHA6hJ MvrL4qtVnskorryM1oZep+UGF 5 IVS4HZ97YH53N9LvLohqpEEtp +PHRhYmxlIHdpZHRoPScxMD NmDwBzdYdpDO1aQl1fOTQaKZZ v bGxhcHNlOiBjb (more content not included)... Normal [facility] Patient Letter FTon 2023 Patient Letter [facility] (Inserted Image. Nette ble to display) April 11, 20[address] [place], [place] [address] [place] [address] : 1960 Dear Alisia Correa, We have been trying to reach you with no success. It is important that you return our call regarding your recent lab result upon receiving this letter. Also, at the time of your call, please provide us with your current information. Thank you for your prompt attention to this matter. Sincerely, [facility] [place] [address] [facility] C Urineon 04-07-2024 Bacteria identified Cx Nom (U) Microbiology PROCEDURE: Urine Culture [R1] SOURCE: U Random BODY SITE: COLLECTED DATE/TIME: 04/05/2024 15:30 EDT RECEIVED DATE/TIME: 04/05/2024 18:24 EDT START DATE/TIME: 04/05/2024 18:24 EDT FREE TEXT SOURCE: Dakota EMBEDDED FIRMWARE ENGINEER, CURRICULUM DEVELOPER-C, Dakota EMBEDDED FIRMWARE ENGINEER, CURRICULUM DEVELOPER-C, Pippa X Pippa X FINAL REPORTS Final [...] Locations R1: This test was performed at: [facility], [address] [place] [address], [id number] , , Normal [facility] Comment on above: Performed By: #### 2 [id number] #### [facility] [address] [place] [address] RAD - MISCon 03-25-2024 RAD - MISC [id number] [facility] RAD - Ultrasound Reporton RAD - Ultrasound Report [id number]#[id number] Normal [facility] Patient Educationon 03-15-20 24 Patient [...] Follow these instructions at home: ? Take uuln-qtf-xxawhxy and prescription medicines as told by your [...] get worse. (more content not included)... Normal [facility] Urology Office/Clinic Noteon 03-15-2024 [...] of cefdinir. Discussed with the patient starting kgti-fhj-itxteut UTI prevention supplements including d-mannose, Cranberry and [...] Kidney Stones Antibiotic Medicine, Adult Kidney Stones, Sfju-ml-Morq Benign Prostatic Hyperplasia Problem List/Past Medical History [...] hypofunction Urinary reten (more content not included)... [facility] Comment on above: Result Comment: Elec tronically Signed By: TITI Duncan APRN, [place] X\.betty\Date and Time Signed: 03/15/24 13:28 EDT Provider Letteron 03-01-2024 Provider Letter (Inserted Image. Nette ble to display) March 01, 2024 ALISIA CORREA [address] [place] [address] : 1960 Dear Alisia Correa, We have been trying to reach you with no success. It is important that you return our call regarding your lab results upon receiving this letter. Also, at the time of your call, please provide us with your current information. Thank you for your prompt attention to this matter. Sincerely, [facility] [address] [place] [address] [facility] C Urineon 02-25-2024 Bacteria identified Cx Nom [...] I=Intermediate, ESBL=Extended spectrum beta-lactamase, R=Resistant, TFG=Thymidine-dependent strain, BNIH=Beta-lactamase positive, SABI=mcg/m;(mg/L), S*=Predicted susceptible interp, R*=Predicted resistant [...] Locations R1: This test was performed at: [facility], [address] [place] [address], [address] , , [facility] Comment on above: Performed By: #### 2 [id number] #### [facility] [address] [place] [address] Glucose Glucometer (BldC) [M ass/Vol]Ordered By: Bernice Shrestha on 02-11-2024 Glucose [Mass/Vol] 70 mg/dL [facility] Comment on above: Random Glucose Refer ence Range is dependent on time and content of last meal. Glucose of more than 200 mg/dL in a nonstressed, ambulatory subject supports the diagnosis of Diabetes Mellitus. Pre-Certification Formon Pre-Certification Form [id number]#[id number] Normal [facility] Ambulatory Visit Summaryon 0 01-11-2024 Ambulatory Visit Summary ALISIA CORREA Kenny :1960 Visit Date:01/11/2024 Ambulatory Visit Instructions Your [...] 11:00 AM EDT Where: [facility] [place] Normal [facility] Basophils Auto (Bld) [#/Vol] on 01-06-2024 Basophils (Bld) [#/Vol] 0.0 10 3/uL 0.0-0.1 [facility] Basophils/100 WBC Auto (Bld) on 01-06-2024 Basophils/100 WBC (Bld) 0.6 % 0.2-2.0 [facility] Eosinophils/100 WBC Auto (Bl d)on 01-06-2024 Eosinophils/100 WBC (Bld) 3.2 % 0.9-7.0 [facility] Erythrocyte distribution wid th Auto (RBC) [Ratio]on 01-06-2024 Erythrocyte distribution width (RBC) [Ratio] 14.6 % 11.0-15.0 [facility] Estimated glomerular filtrat ion rate (GFR) non- Americanon 01-06-2024 GFR/1.73 sq M.predicted among non-blacks MDRD (S/P/Bld) [Vol rate/Area] mL/min/{1.73_m2} >=60 [facility] Hematocrit Auto (Bld) [Volum e fraction]on 01-06-2024 Hematocrit (Bld) [Volume fraction] 40.9 % 42.0-54.0 [facility] Hemoglobin [Mass/volume] in Bloodon 01-06-2024 Hemoglobin (Bld) [Mass/Vol] 12.6 g/dL 14.0-18.0 [facility] Laboratory - Chemistry and C hemistry - challengeon 01-06-2024 Calcium [Mass/Vol] 8.5 mg/dL 8.5-10.1 [facility] Chloride [Moles/Vol] 106 mmol/L 98-107 [facility] CO2 [Moles/Vol] 24.7 mmol/L 21.0-32.0 [facility] Creatinine [Mass/Vol] 1.14 mg/dL 0.70-1.30 [facility] GFR/1.73 sq M.predicted MDRD (S/P/Bld) [Vol rate/Area] mL/min/{1.73_m2} >=60 [facility] Glucose [Mass/Vol] 70 mg/dL 74-106 [facility] Lactate [Moles/Vol] 1.4 mmol/L 0.4-2.0 [facility] Potassium [Moles/Vol] 3.6 mmol/L 3.5-5.1 [facility] Sodium [Moles/Vol] 140 mmol/L 136-145 [facility] Urea nitrogen [Mass/Vol] 25.0 mg/dL 7.0-18.0 [facility] Urea nitrogen/Creatinine [Mass ratio] 21.9 mg/mg [facility] Laboratory - Hematology and Cell countson 01-06-2024 Immature granulocytes/100 WBC (Bld) 0.4 % 0.0-0.5 [facility] Laboratory - Microbiology an d Antimicrobial susceptibilityOrdered By: Ellen Crabtree on 01-06-2024 Bacteria identified Cx Nom (U) [facility] Leukocytes [#/volume] correc jacqueline for nucleated erythrocytes in Blood by Automated counon 01-06-2024 WBC corrected for nucl RBC Auto (Bld) [#/Vol] 5.3 10 3/uL 4.0-11.0 [facility] Lymphocytes Auto (Bld) [#/Vo l]on 01-06-2024 Lymphocytes (Bld) [#/Vol] 2.2 10 3/uL 1.2-3.8 [facility] Lymphocytes/100 WBC Auto (Bl d)on 01-06-2024 Lymphocytes/100 WBC (Bld) 41.9 % 20.5-60.0 [facility] MCH Auto (RBC) [Entitic mass ]on 01-06-2024 MCH (RBC) [Entitic mass] 28.5 pg 25.9-34.0 [facility] MCHC Auto (RBC) [Mass/Vol]on 01-06-2024 MCHC (RBC) [Mass/Vol] 30.8 g/dL 29.9-35.2 [facility] MCV Auto (RBC) [Entitic vol] on 01-06-2024 MCV (RBC) [Entitic vol] 92.5 fL 80.0-94.0 [facility] Monocytes Auto (Bld) [#/Vol] on 01-06-2024 Monocytes (Bld) [#/Vol] 0.6 10 3/uL 0.3-0.8 [facility] Monocytes/100 WBC Auto (Bld) on 01-06-2024 Monocytes/100 WBC (Bld) 12.0 % 1.7-12.0 [facility] Neutrophils Auto (Bld) [#/Vo l]on 01-06-2024 Neutrophils (Bld) [#/Vol] 2.2 10 3/uL 1.4-6.5 [facility] Neutrophils/100 WBC Auto (Bl d)on 01-06-2024 Neutrophils/100 WBC (Bld) 41.9 % 43.0-75.0 [facility] No Panel Informationon 01-05 Eosinophils # (Auto) 0.2 10 3/uL 0.0-0.7 [facility] Immature Granulocyte # (Auto) 0.02 10 3/uL 0.00-0.03 [facility] Platelet mean volume Auto (B ld) [Entitic vol]on 01-06-2024 Platelet mean volume (Bld) [Entitic vol] 13.0 fL 9.5-13.5 [facility] Platelets Auto (Bld) [#/Vol] on 01-06-2024 Platelets (Bld) [#/Vol] 153 10 3/uL 150-450 [facility] RBC Auto (Bld) [#/Vol]on RBC (Bld) [#/Vol] 4.42 10 6/uL 4.70-6.10 [facility] Serum or plasma anion gap de terminationon 01-06-2024 Anion gap [Moles/Vol] 12.9 mmol/L [facility] Pre-Certification Formon Pre-Certification Form [id number]#[id number] [facility] Ambulatory Visit Summaryon 0 11-17-2023 Ambulatory Visit [...] 11:30 AM EST Where: [facility] Pre-Certification Formon Pre-Certification Form [id number]#[id number] [facility] A1C HEMOGLOBINon 11-10-2023 HbA1c (Bld) [Mass fraction] 5.7 % [employer] [facility] [employer] Other HbA1c (Bld) [Mass fraction]o n 11-10-2023 A1C HEMOGLOBIN [facility] [employer] Other C Urineon 10-23-2023 Bacteria identified Cx [...] Locations R1: This test was performed at: [facility], [address] [place] [address], [address] , , [facility] Comment on above: Performed By: #### 2 [id number] #### [facility] [address] [place] [address] Ambulatory Visit Summaryon 0 10-22-2023 Ambulatory Visit Summary FREDYROBERTO ALISIA Cox :1960 Visit Date:10/21/2023 Ambulatory Visit Instructions Your [...] 11:00 AM EST Where: [facility] [place] Normal [facility] Ambulatory Visit Summaryon 1 11-15-2022 Ambulatory Visit Summary ALISIA CORREA :1960 [...] 11:00 AM EST Where: [facility] Lab Reportson 08-28-2023 Lab Reports [id number]#[id number]-2023 Forms [id number]#[id number] Normal [facility] RAD - CT Reporton 08-24-2023 RAD - CT Report [id number]#1.00TIFF Normal [facility] RAD - MISCon 08-17-2023 RAD - MISC [id number]#1.00TIFF Normal [facility] Physician Orderon 08-03-2023 Physician Order [id number]#1.00TIFF Normal [facility] Physician Orderon 07-27-2023 Physician Order [id number]#[id number] Normal [facility] C Urineon 07-21-2023 Bacteria identified [...] Locations R1: This test was performed at: [facility], [address] [place] [address], [id number]- , [place], [facility] Comment on above: Performed By: #### 2 [id number] #### [facility] [address] [place] [id number] Provider Letteron 07-13-2023 Provider Letter (Inserted Image. Nette ble to display) July 13, 2023 ALISIA CORREA [address] [place] [address] [place] [address] : 1960 Dear Mr. Correa, We have been trying to reach you with no success. It is important that you return our call regarding your recent injections upon receiving this letter. Also, at the time of your call, please provide us with your current information. Please call our office at [phone]. Thank you for your prompt attention to this matter. Sincerely, [facility] [address] [place] [address] [address] [facility] Lab Reportson 07-08-2023 Lab Reports [id number]#1.00CD:12 7 [facility] Gent Levelon 07-01-2023 GENTAMICIN 8.8 microgram/mL Normal 0.5-10.0 [facility] Comment on above: Performed By: #### 2 [id number] ####[facility] [address] [place] [address] Lab Reportson 07-01-2023 Lab Reports [id number]#1.00CD:12 7 [facility] Physician Orderon 07-01-2023 Physician Order [id number]#1.00CD:12 7 [facility] Physician Order [id number]#1.00CD:12 7 [facility] Physician Orderon 06-29-2023 Physician Order [id number]#1.00CD:12 7 Normal [facility] C Urineon 06-21-2023 Bacteria identified [...] Locations R1: This test was performed at: [facility], [address] [place] [address], [address] , , [facility] Comment on above: Performed By: #### 2 [id number] #### [facility] [address] [place] [address] Ambulatory Visit Summaryon 0 9-01-2023 Ambulatory Visit Summary ALISIA CORREA :1960 Visit [...] 11:00 AM EDT Where: [facility] Lab Reportson 06-08-2023 Lab Reports [id number]#1.00CD:12 7 [facility] Lab Reports [id number]#1.00CD:12 7 [facility] Lab Reports [id number]#1.00CD:12 7 [facility] Formson 05-29-2023 Forms [id number]#1.00CD:12 7 [facility] C Urineon 05-28-2023 Bacteria identified Cx Nom [...] Locations R1: This test was performed at: [facility], [address] [place] [address], [facility]- , , Normal [facility] Comment on above: Performed By: #### 2 [id number] #### [facility] [address] [place] [address] CALCULI, URINARYon 3 2,8 Dihydroxyadenine Normal [facility] Comment on above: Performed By: #### C VDTBH #### [facility] [address] [place] [address] Dr. Bruce Nicholas Ammonium Acid Urate Normal [facility] Comment on above: Performed By: #### C VDTBH #### [facility] [address] [place] [address] Dr. Bruce Nicholas Bilirubin Ql (U) Normal [facility] Comment on above: Performed By: #### C VDTBH #### [facility] [address] [address] [address] Bruce Nicholas Ca Oxalate Dihydrate 20 % Normal [facility] Comment on above: Performed By: #### C VDTBH #### [facility] [address] [address] [address] Burce Nicholas CaHPO4 (Brushite) Normal [facility] Comment on above: Performed By: #### C VDTBH #### [facility] [address] [address] [address] Bruce Nciholas Calcium Bilirubinate Normal [facility] Comment on above: Performed By: #### C VDTBH #### [facility] [address] [address] [address] Bruce Nicholas Calcium Carbonate Normal [facility] Comment on above: Performed By: #### C VDTBH #### [facility] [facility] [address] [address] [address] Bruce Nicholas Calcium Oxalate Monohydrate 80 % [facility] Comment on above: Performed By: #### C VDTBH #### [facility] [address] [address] [address] Bruce Nicholas Calcium Palmitate Normal [facility] Comment on above: Performed By: #### C VDTBH #### [facility] [address] [address] [address] Bruce Nicholas Calcium Phosphate Normal [facility] Comment on above: Performed By: #### C VDTBH #### [facility] [address] [address] [address] Bruce Nicholas Calcium Stearate Normal [facility] Comment on above: Performed By: #### C VDTBH #### [facility] [address] [address] [address] Bruce Nicholas Carbonate Apatite Normal [facility] Comment on above: Performed By: #### C VDTBH #### [facility] [address] [place] [address] Dr. Brcue Nicholas Cellular Material Normal [facility] Comment on above: Performed By: #### C VDTBH #### [facility] [address] [place] [address] Dr. Bruce Nicholas Cholesterol [facility] Comment on above: Performed By: #### C VDTBH #### [facility] [address] [place] [address] Dr. Bruce Nicholas Color (U) Brown Normal [facility] Comment on above: Performed By: #### C VDTBH #### [facility] [address] [place] [address] Dr. Bruce Nicholas Comment [facility] Comment on above: Performed By: #### C VDTBH #### [facility] [address] [place] [address] Dr. Bruce Nicholas Comment Comment [facility] Comment on above: Result Comment: Calc ulus received wet. Wet calculi must be dried before analysis, which delays reporting of results. Leaving calculi wet (such as water, saline, blood, urine) may lead to changes in composition. Performed By: #### C VDTBH #### [facility] [address] [place] [address] Dr. Bruce Nicholas Comment: Comment Normal [facility] Comment on above: Result Comment: Eli poe questions regarding Calculi Analysis contact [employer] at: [phone]. Performed By: #### C VDTBH #### [facility] [address] [place] [address] Dr. Bruce Nicholas Composition Comment [facility] Comment on above: Result Comment: Perc entage (Represents the % composition) Performed By: #### C VDTBH #### [facility] [address] [place] [address] Dr. Bruce Nicholas Cystine [facility] Comment on above: Performed By: #### C VDTBH #### [facility] [address] [place] [address] Dr. Bruce Nicholas Disclaimer: Comment Normal [facility] Comment on above: Result Comment: This test was developed and its performance characteristics determined by [facility]. It has not been cleared or approved by the Food and Drug Administration. Performed By: #### C VDTBH #### [facility] [address] [address] [address] Bruce Nicholas Dried Blood Normal [facility] Comment on above: Performed By: #### C VDTBH #### [facility] [address] [place] [address] Dr. Bruce Nicholas Drug or Metabolite Normal [facility] Comment on above: Performed By: #### C VDTBH #### [facility] [address] [address] [address] Bruce Nicholas Hydroxyapatite [facility] Comment on above: Performed By: #### C VDTBH #### [facility] [address] [address] [address] Bruce Nicholas Mg NH4 PO4 (Struvite) [facility] Comment on above: Performed By: #### C VDTBH #### [facility] [address] [place] [address] Dr. Bruce Nicholas MgHPO4 (Newberyite) Normal [facility] Comment on above: Performed By: #### C VDTBH #### [facility] [address] [address] [address] Bruce Nicholas Other component(s) Normal [facility] Comment on above: Performed By: #### C VDTBH #### [facility] [address] [place] [address] Dr. Bruce Nicholas PDF . Normal [facility] Comment on above: Performed By: #### C VDTBH #### [facility] [address] [place] [address] Dr. Bruce Nicholas Photo Comment [facility] Comment on above: Result Comment: Phot ograph will follow under a separate cover Performed By: #### C VDTBH #### [facility] [address] [place] [address] Dr. Bruce Nicholas Please note: Comment Normal [facility] Comment on above: Result Comment: Calc jayant report will follow via computer, mail or spring winder delivery. Performed By: #### C VDTBH #### [facility] [address] [address] [address] Bruce Nicholas Size 6x4 [facility] Comment on above: Result Comment: Mult iple pieces received. Dimensions of the largest piece reported. Performed By: #### C VDTBH #### [facility] [address] [address] [address] Bruce Nicholas Sodium Acid Urate Normal [facility] Comment on above: Performed By: #### C VDTBH #### [facility] [address] [address] [address] Bruce Nicholas Source Comment [facility] Comment on above: Result Comment: Urin francine Bladder Performed By: #### C VDTBH #### [facility] [address] [address] [address] Bruce Nicholas Triamterene [facility] Comment on above: Performed By: #### C VDTBH #### [facility] [address] [place] [address] Dr. Bruce Nichoals Uric Acid [facility] Comment on above: Performed By: #### C VDTBH #### [facility] [address] [address] [address] Bruce Nicholas Uric Acid Dihydrate Normal [facility] Comment on above: Performed By: #### C VDTBH #### [facility] [address] [address] [address] Bruce Nicholas Weight 615 mg [facility] Comment on above: Performed By: #### C VDTBH #### [facility] [address] [place] [address] Dr. Bruce Nicholas Xanthine [facility] Comment on above: Performed By: #### C VDTBH #### [facility] [address] [address] [address] Bruce Nicholas POINT OF CARE GLUCOSEon 04 Glucose [Mass/Vol] 70 mg/dL Critically low 74-106 Th [facility] Comment on above: Performed By: #### C BC #### [facility] [address] [address] [address] Bruce Nicholas CBC AUTO DIFFon 01-20-2023 BASO # 0.0 103/ul Normal 0.0-0.1 [facility] Comment on above: Performed By: #### C VDTBH #### [facility] [address] [place] [address] Dr. Bruce Nicholas Basophils/100 WBC (Bld) 0.2 % Normal 0.2-2.0 [facility] Comment on above: Performed By: #### C VDTBH #### [facility] [address] [place] [address] Dr. Bruce Nicholas EO # 0.1 103/ul Normal 0.0-0.7 [facility] Comment on above: Performed By: #### C VDTBH #### [facility] [address] [place] [address] Dr. Bruce Nicholas Eosinophils/100 WBC (Bld) 0.7 % Critically low 0.9-7.0 [facility] Comment on above: Performed By: #### C VDTBH #### [facility] [address] [place] [address] Dr. Bruce Nicholas Erythrocyte distribution width (RBC) [Ratio] 15.2 % Critically high 11.0-15.0 [facility] Comment on above: Performed By: #### C VDTBH #### [facility] [address] [place] [address] Dr. Bruce Nicholas Hematocrit (Bld) [Volume fraction] 43.0 % Normal 42.0-54.0 [facility] Comment on above: Performed By: #### C VDTBH #### [facility] [address] [place] [address] Dr. Bruce Nicholas Hemoglobin (Bld) [Mass/Vol] 13.7 g/dL Critically low 14.0-18.0 [facility] Comment on above: Performed By: #### C VDTBH #### [facility] [address] [place] [address] Dr. Bruce Nicholas IG # 0.04 10e3/ul Critically high 0.00-0.03 [facility] Comment on above: Performed By: #### C VDTBH #### [facility] [address] [place] [address] Dr. Bruce Nicholas IG % 0.5 % Normal 0.0-0.5 [facility] Comment on above: Performed By: #### C VDTBH #### [facility] [address] [address] [address] Bruce Nicholas LYMPH # 1.6 103/ul Normal 1.2-3.8 [facility] Comment on above: Performed By: #### C VDTBH #### [facility] [address] [place] [address] Dr. Bruce Nicholas Lymphocytes/100 WBC (Bld) 18.4 % Critically low 20.5-60.0 [facility] Comment on above: Performed By: #### C VDTBH #### [facility] [address] [place] [address] Dr. rBuce Nicholas MANUAL DIFF REQ NO Normal [facility] Comment on above: Performed By: #### C VDTBH #### [facility] [address] [place] [address] Dr. Bruce Nicholas MCH (RBC) [Entitic mass] 28.8 pg Normal 25.9-34.0 [facility] Comment on above: Performed By: #### C VDTBH #### [facility] [address] [place] [address] Dr. Bruce Nicholas MCHC (RBC) [Mass/Vol] 31.9 g/dL Normal 29.9-35.2 [facility] Comment on above: Performed By: #### C VDTBH #### [facility] [address] [place] [address] Dr. Bruce Nicholas MCV (RBC) [Entitic vol] 90.3 fL Normal 80.0-94.0 [facility] Comment on above: Performed By: #### C VDTBH #### [facility] [address] [place] [address] Dr. Bruce Nicholas MONO # 0.6 103/ul Normal 0.3-0.8 [facility] Comment on above: Performed By: #### C VDTBH #### [facility] [address] [place] [address] Dr. Bruce Nicholas Monocytes/100 WBC (Bld) 6.5 % Normal 1.7-12.0 [facility] Comment on above: Performed By: #### C VDTBH #### [facility] [address] [place] [address] Dr. Bruce Nicholas NEUT # 6.4 103/ul Normal 1.4-6.5 [facility] Comment on above: Performed By: #### C VDTBH #### [facility] [address] [place] [address] Dr. Bruce Nicholas Neutrophils/100 WBC (Bld) 73.7 % Normal 43.0-75.0 [facility] Comment on above: Performed By: #### C VDTBH #### [facility] [address] [place] [address] Dr. Bruce Nicholas Platelet mean volume (Bld) [Entitic vol] 11.6 fL Normal 9.5-13.5 [facility] Comment on above: Performed By: #### C VDTBH #### [facility] [address] [place] [address] Dr. Bruce Nicholas PLT 229 103/ul Normal 150-450 [facility] Comment on above: Performed By: #### C VDTBH #### [facility] [address] [place] [address] Dr. Bruce Nicholas RBC 4.76 106/ul Normal 4.70-6.10 [facility] Comment on above: Performed By: #### C VDTBH #### [facility] [address] [place] [address] Dr. Bruce Nicholas WBC 8.7 103/ul Normal 4.0-11.0 [facility] Comment on above: Performed By: #### C VDTBH #### [facility] [address] [place] [address] Dr. Bruce Nicholas PROF CHEM 8 (BAS METB)on Anion gap [Moles/Vol] 11.1 mmol/L Normal Th [facility] Comment on above: Performed By: #### C BC #### [facility] [address] [address] [address] Bruce Nicholas Calcium [Mass/Vol] 9.5 mg/dL Normal 8.5-10.1 [facility] Comment on above: Performed By: #### C BC #### [facility] [address] [address] [address] Bruce Nicholas Chloride [Moles/Vol] 105 mmol/L Normal 98-107 [facility] Comment on above: Performed By: #### C BC #### [facility] [address] [address] [address] Bruce Nicholas CO2 [Moles/Vol] 27.5 mmol/L Normal 21.0-32.0 [facility] Comment on above: Performed By: #### C BC #### [facility] [address] [place] [address] Dr. Bruce Nicholas Creatinine [Mass/Vol] 0.73 mg/dL Normal 0.70-1.30 [facility] Comment on above: Performed By: #### C BC #### [facility] [address] [address] [address] Bruce Nicholas EGFR-AF AFGHAN >60 Normal >=60 [facility] Comment on above: Performed By: #### C BC #### [facility] [address] [place] [address] Dr. Bruce Nicholas EGFR-NON AF AFGHAN >60 Normal >=60 [facility] Comment on above: Performed By: #### C BC #### [facility] [address] [address] [address] Bruce Nicholas Glucose [Mass/Vol] 97 mg/dL Normal 74-106 [facility] Comment on above: Performed By: #### C BC #### [facility] [address] [place] [address] Dr. Bruce Nicholas Potassium [Moles/Vol] 4.1 mmol/L Normal 3.5-5.1 [facility] Comment on above: Performed By: #### C BC #### [facility] [address] [address] [address] Bruce Nicholas Sodium [Moles/Vol] 140 mmol/L Normal 136-145 [facility] Comment on above: Performed By: #### C BC #### [facility] [address] [address] [address] Bruce Nicholas Urea nitrogen [Mass/Vol] 22.0 mg/dL Critically high 7.0-18.0 [facility] Comment on above: Performed By: #### C BC #### [facility] [address] [address] [address] Bruce Nicholas Urea nitrogen/Creatinine [Mass ratio] 30.1 mg/mg Normal [facility] Comment on above: Performed By: #### C BC #### [facility] [address] [address] [address] 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 Normal [facility] CULTURE URINEon 12-21-2022 CULTURE URINE Isolate 1 Pseudomonas aeruginosa >100,000 cfu/mL of ORGANISM 1 Pseudomonas aeruginosa ANTIBIOTIC M.I.C RX STATUS Piperacillin/Tazobactam <=4 S F Ceftazidime <=1 S F Imipenem 1 S F Amikacin <=2 S F Gentamicin <=1 S F Tobramycin <=1 S F Ciprofloxacin <=0.25 S F Levofloxacin 0.25 S F Normal [facility] Comment on above: Performed By: #### U RCX #### [facility] [address] [address] [address] Bruce Nicholas CBC AUTO DIFFon 12-18-2022 BASO # 0.0 103/ul Normal 0.0-0.1 [facility] Comment on above: Performed By: #### P OCGLUC #### [facility] [address] [address] [address] Bruce Nicholas Basophils/100 WBC (Bld) 0.6 % Normal 0.2-2.0 [facility] Comment on above: Performed By: #### P OCGLUC #### [facility] [address] [address] [address] Bruce Nicholas EO # 0.2 103/ul Normal 0.0-0.7 [facility] Comment on above: Performed By: #### P OCGLUC #### [facility] [address] [place] [address] Dr. Bruce Nicholas Eosinophils/100 WBC (Bld) 3.2 % Normal 0.9-7.0 [facility] Comment on above: Performed By: #### P OCGLUC #### [facility] [address] [place] [address] Dr. Bruce Nicholas Erythrocyte distribution width (RBC) [Ratio] 16.6 % Critically high 11.0-15.0 [facility] Comment on above: Performed By: #### P OCGLUC #### [facility] [address] [place] [address] Dr. Bruce Nicholas Hematocrit (Bld) [Volume fraction] 37.9 % Critically low 42.0-54.0 [facility] Comment on above: Performed By: #### P OCGLUC #### [facility] [address] [place] [address] Dr. Bruce Nicholas Hemoglobin (Bld) [Mass/Vol] 12.0 g/dL Critically low 14.0-18.0 [facility] Comment on above: Performed By: #### P OCGLUC #### [facility] [address] [place] [address] Dr. Bruce Nicholas IG # 0.02 10e3/ul Normal 0.00-0.03 [facility] Comment on above: Performed By: #### P OCGLUC #### [facility] [address] [place] [address] Dr. Bruce Nicholas IG % 0.3 % Normal 0.0-0.5 [facility] Comment on above: Performed By: #### P OCGLUC #### [facility] [address] [place] [address] Dr. Bruce Nicholas LYMPH # 1.2 103/ul Normal 1.2-3.8 [facility] Comment on above: Performed By: #### P OCGLUC #### [facility] [address] [address] [address] Bruce Nicholas Lymphocytes/100 WBC (Bld) 16.7 % Critically low 20.5-60.0 [facility] Comment on above: Performed By: #### P OCGLUC #### [facility] [address] [address] [address] Bruce Nicholas MANUAL DIFF REQ NO Normal [facility] Comment on above: Performed By: #### P OCGLUC #### [facility] [address] [address] [address] Bruce Nicholas MCH (RBC) [Entitic mass] 28.4 pg Normal 25.9-34.0 [facility] Comment on above: Performed By: #### P OCGLUC #### [facility] [address] [place] [address] Dr. Bruce Nicholas MCHC (RBC) [Mass/Vol] 31.7 g/dL Normal 29.9-35.2 [facility] Comment on above: Performed By: #### P OCGLUC #### [facility] [address] [address] [address] Bruce Nicholas MCV (RBC) [Entitic vol] 89.6 fL Normal 80.0-94.0 [facility] Comment on above: Performed By: #### P OCGLUC #### [facility] [address] [place] [address] Dr. Bruce Nicholas MONO # 0.6 103/ul Normal 0.3-0.8 [facility] Comment on above: Performed By: #### P OCGLUC #### [facility] [address] [address] [address] Bruce Nicholas Monocytes/100 WBC (Bld) 7.9 % Normal 1.7-12.0 [facility] Comment on above: Performed By: #### P OCGLUC #### [facility] [address] [address] [address] Bruce Nicholas NEUT # 5.0 103/ul Normal 1.4-6.5 [facility] Comment on above: Performed By: #### P OCGLUC #### [facility] [address] [address] [address] Bruce Nicholas Neutrophils/100 WBC (Bld) 71.3 % Normal 43.0-75.0 [facility] Comment on above: Performed By: #### P OCGLUC #### [facility] [address] [address] [address] Bruce Nicholas Platelet mean volume (Bld) [Entitic vol] 12.4 fL Normal 9.5-13.5 [facility] Comment on above: Performed By: #### P OCGLUC #### [facility] [address] [address] [address] Bruce Nicholas PLT 156 103/ul Normal 150-450 [facility] Comment on above: Performed By: #### P OCGLUC #### [facility] [address] [address] [address] Bruce Nicholas RBC 4.23 106/ul Critically low 4.70-6.10 [facility] Comment on above: Performed By: #### P OCGLUC #### [facility] [id number] Bruce Nicholas WBC 6.9 103/ul Normal 4.0-11.0 [facility] Comment on above: Performed By: #### P OCGLUC #### [facility] [id number] Bruce Nicholas CT ABD/PELVIS WO CONon 12-18 CT ABD/PELVIS WO CON EXAMINATION: CT ABD/PELVIS WO CON, 12/18/2022 1:17 PM MST HISTORY: Retention of urine COMPARISON: None. TECHNIQUE: CT scan of the abdomen and pelvis was performed without IV contrast. CT dose reduction technique was used, including Automated Exposure Control. FINDINGS: Luggage Attendant: No pertinent findings, which are not already [...] CHE PANDYA Date: 2022-12-18 17:14 Normal [facility] ER URINE PROFILEon 3 Bilirubin Ql (U) Negative Normal NEGATIVE [facility] Comment on above: Performed By: #### P OCGLUC #### [facility] [address] [address] [address] Bruce Nicholas Clarity (U) CLEAR Normal CLEAR [facility] Comment on above: Performed By: #### P OCGLUC #### [facility] [address] [address] [address] Bruce Nicholas Color (U) BROWN Abnormal YELLOW [facility] Comment on above: Performed By: #### P OCGLUC #### [facility] [address] [address] [address] Bruce WHEAT A micrscopic examina tion will be performed if indicated. Normal [facility] Comment on above: Performed By: #### P OCGLUC #### [facility] [address] [address] [address] Bruce Nicholas Glucose Ql (U) Negative Normal NEGATIVE [facility] Comment on above: Performed By: #### P OCGLUC #### [facility] [address] [address] [address] Bruce Nicholas Hemoglobin Ql (U) MODERATE Abnormal NEGATIVE [facility] Comment on above: Performed By: #### P OCGLUC #### [facility] [address] [address] [address] Bruce Nicholas Ketones Ql (U) Negative Normal NEGATIVE [facility] Comment on above: Performed By: #### P OCGLUC #### [facility] [address] [address] [address] Bruce Nicholas LEUKOCYTES LARGE Abnormal NEGATIVE [facility] Comment on above: Performed By: #### P OCGLUC #### [facility] [address] [address] [address] Bruce Nicholas Nitrite Ql (U) Positive Abnormal NEGATIVE The [facility] Comment on above: Performed By: #### P OCGLUC #### [facility] [address] [place] [address] Dr. Bruce Nicholas pH (U) 6.0 [pH] Normal 5-9 [facility] Comment on above: Performed By: #### P OCGLUC #### [facility] [address] [address] [address] Bruce Nicholas Protein (U) [Mass/Vol] 30 mg/dL Abnormal NEGAT AV/ TRACE The [facility] Comment on above: Performed By: #### P OCGLUC #### [facility] [address] [place] [address] Dr. Bruce Nicholas SPEC GRAVITY 1.020 Normal 1.005-<=1. 025 [facility] Comment on above: Performed By: #### P OCGLUC #### [facility] [address] [place] [address] Dr. Bruce Nicholas UR MICRO IND INDICATED Normal [facility] Comment on above: Performed By: #### P OCGLUC #### [facility] [address] [place] [address] Dr. Bruce Nicholas Urobilinogen Qn (U) 1.0 {Phillip'U}/dL Normal 0.2 - 1. 0 [facility] Comment on above: Performed By: #### P OCGLUC #### [facility] [address] [place] [address] Dr. Bruce Nicholas PROF 14(COMP METB)on 023 Albumin [Mass/Vol] 3.0 g/dL Critically low 3.4-5.0 Th [facility] Comment on above: Performed By: #### C VDTBH #### [facility] [address] [place] [address] Dr. Bruce Nicholas Albumin/Globulin [Mass ratio] 0.9 {ratio} Normal [facility] Comment on above: Performed By: #### C VDTBH #### [facility] [address] [place] [address] Dr. Bruce Nicholas ALP [Catalytic activity/Vol] 112 U/L Normal 46-116 [facility] Comment on above: Performed By: #### C VDTBH #### [facility] [address] [place] [address] Dr. Bruce Nicholas ALT [Catalytic activity/Vol] 7 U/L Critically low 16-63 [facility] Comment on above: Performed By: #### C VDTBH #### [facility] [address] [place] [address] Dr. Bruce Nicholas Anion gap [Moles/Vol] 5.6 mmol/L Normal [facility] Comment on above: Performed By: #### C VDTBH #### [facility] [address] [place] [address] Dr. Bruce Nicholas AST [Catalytic activity/Vol] 19 U/L Normal 15-37 [facility] Comment on above: Performed By: #### C VDTBH #### [facility] [address] [address] [address] Bruce Nicholas Bilirubin [Mass/Vol] 0.6 mg/dL Normal 0.2-1.0 [facility] Comment on above: Performed By: #### C VDTBH #### [facility] [address] [place] [address] Dr. Bruce Nicholas Calcium [Mass/Vol] 9.0 mg/dL Normal 8.5-10.1 [facility] Comment on above: Performed By: #### C VDTBH #### [facility] [address] [place] [address] Dr. Bruce Nicholas Chloride [Moles/Vol] 106 mmol/L Normal 98-107 [facility] Comment on above: Performed By: #### C VDTBH #### [facility] [address] [place] [address] Dr. Bruce Nicholas CO2 [Moles/Vol] 29.0 mmol/L Normal 21.0-32.0 [facility] Comment on above: Performed By: #### C VDTBH #### [facility] [address] [place] [address] Dr. Bruce Nicholas Creatinine [Mass/Vol] 0.71 mg/dL Normal 0.70-1.30 [facility] Comment on above: Performed By: #### C VDTBH #### [facility] [address] [place] [address] Dr. Bruce Nicholas EGFR-AF AFGHAN >60 Normal >=60 [facility] Comment on above: Performed By: #### C VDTBH #### [facility] [address] [place] [address] Dr. Bruce Nicholas EGFR-NON AF AFGHAN >60 Normal >=60 [facility] Comment on above: Performed By: #### C VDTBH #### [facility] [address] [place] [address] Dr. rBuce Nicholas Globulin (S) [Mass/Vol] 3.2 g/dL Normal [facility] Comment on above: Performed By: #### C VDTBH #### [facility] [address] [address] [address] Bruce Nicholas Glucose [Mass/Vol] 93 mg/dL Normal 74-106 [facility] Comment on above: Performed By: #### C VDTBH #### [facility] [address] [place] [address] Dr. Bruce Nicholas Potassium [Moles/Vol] 3.6 mmol/L Normal 3.5-5.1 [facility] Comment on above: Performed By: #### C VDTBH #### [facility] [address] [place] [address] Dr. Bruce Nicholas Protein [Mass/Vol] 6.2 g/dL Critically low 6.4-8.2 Th [facility] Comment on above: Performed By: #### C VDTBH #### [facility] [address] [place] [address] Dr. Bruce Nicholas Sodium [Moles/Vol] 137 mmol/L Normal 136-145 [facility] Comment on above: Performed By: #### C VDTBH #### [facility] [address] [place] [address] Dr. Bruce Nicholas Urea nitrogen [Mass/Vol] 22.0 mg/dL Critically high 7.0-18.0 [facility] Comment on above: Performed By: #### C VDTBH #### [facility] [address] [place] [address] Dr. Bruce Nicholas Urea nitrogen/Creatinine [Mass ratio] 31.0 mg/mg Normal [facility] Comment on above: Performed By: #### C VDTBH #### [facility] [address] [place] [address] Dr. Bruce Nicholas URINE MICROSCOPIC ONLYon BACTERIA SMALL Abnormal NONE SEEN The [facility] Comment on above: Performed By: #### P OCGLUC #### [facility] [address] [place] [address] Dr. Bruce Nicholas Bacteria identified Cx Nom (U) INDICATED Normal [facility] Comment on above: Performed By: #### P OCGLUC #### [facility] [address] [address] [address] Bruce Nicholas CAST NONE SEEN Normal NONE SEEN The [facility] Comment on above: Performed By: #### P OCGLUC #### [facility] [address] [address] [address] Bruce Nicholas Crystals LM Nom (Urine sed) NONE SEEN Normal NONE SEEN [facility] Comment on above: Performed By: #### P OCGLUC #### [facility] [address] [address] [address] Bruce Nicholas Epithelial cells LM Ql (Urine sed) NONE SEEN Normal NONE SEEN /RARE The [facility] Comment on above: Performed By: #### P OCGLUC #### [facility] [address] [address] [address] Bruce Nicholas MUCOUS NONE SEEN Normal NONE SEEN The [facility] Comment on above: Performed By: #### P OCGLUC #### [facility] [address] [address] [address] Bruce Nicholas RBC 10-20 Abnormal 0-2 [facility] Comment on above: Performed By: #### P OCGLUC #### [facility] [address] [address] [address] Bruce Nicholas WBC 50-75 Abnormal NONE SEEN The [facility] Comment on above: Performed By: #### P OCGLUC #### [facility] [address] [address] [address] Bruce Nicholas CASE MANAGEMon 12-06-2022 CASE MANAGEM Normal [facility] CNDSon 12-06-2022 CNDS Normal [facility] CASE MANAGEMon 12-05-2022 CASE MANAGEM Normal [facility] CONSULT PROGon 12-05-2022 CONSULT PROG Normal [facility] NUTRITIONon 12-05-2022 NUTRITION Normal [facility] SOCIAL WORKon 12-05-2022 SOCIAL WORK Normal [facility] CASE MANAGEMon 12-04-2022 CASE MANAGEM Normal [facility] CONSULTon 12-04-2022 CONSULT Normal [facility] ALLIED HEALTHon 12-03-2022 ALLIED HEALTH Normal [facility] CASE MANAGEMon 12-03-2022 CASE MANAGEM Normal [facility] CBC panel Auto (Bld)on 12-03 Erythrocyte distribution width (RBC) [Ratio] 16.1 % High 11.5-15.0 [facility] Comment on above: Order Comment: Speci men Type: BLOOD SPECIMENOrdering Facility: [facility] Address: [address] [place] [address] Performed By: #### 5 8410-2 ####[facility] LABIA [id number] [address] [place] Hematocrit (Bld) [Volume fraction] 38.3 % Low 39.0-51.0 [facility] Comment on above: Order Comment: Speci men Type: BLOOD SPECIMENOrdering Facility: [facility] Address: [address] [place] [address] Performed By: #### 5 8410-2 ####[facility]IA [id number] [address] OF [facility] Hemoglobin (Bld) [Mass/Vol] 12.4 g/dL Low 13.0-17.0 [facility] Comment on above: Order Comment: Speci men Type: BLOOD SPECIMENOrdering Facility: [facility] Address: [address] [place] [address] Performed By: #### 5 8410-2 ####[facility]IA [id number] [place] [address] [place] MCH (RBC) [Entitic mass] 28.1 pg Normal 26.0-34.0 [facility] Comment on above: Order Comment: Speci men Type: BLOOD SPECIMENOrdering Facility: [facility] Address: [address] [place] [address] Performed By: #### 5 8410-2 ####[facility]IA [id number] [place] [address] [place] MCHC (RBC) [Mass/Vol] 32.4 g/dL Normal 30.5-36.0 [facility] Comment on above: Order Comment: Speci men Type: BLOOD SPECIMENOrdering Facility: [facility] Address: [address] Performed By: #### 5 8410-2 ####[facility] [id number] [address] [place] MCV (RBC) [Entitic vol] 86.7 fL Normal 80.0-100.0 [facility] Comment on above: Order Comment: Speci men Type: BLOOD SPECIMENOrdering Facility: [facility] Address: [address] Performed By: #### 5 8410-2 ####[facility] [id number] [address] [place] Nucleated RBC (Bld) [#/Vol] 10*3/uL Normal <0.01 [facility] Comment on above: Order Comment: Speci men Type: BLOOD SPECIMENOrdering Facility: [facility] Address: [address] [place], [place] [address] Performed By: #### 5 8410-2 ####[facility] [id number] [address] [place] Platelet mean volume (Bld) [Entitic vol] 13.0 fL High 9.0-12.7 [facility] Comment on above: Order Comment: Speci men Type: BLOOD SPECIMENOrdering Facility: [facility] Address: [address] [place] [address] Performed By: #### 5 8410-2 ####[facility]IA [id number] [place] [address] [place] Platelets (Bld) [#/Vol] 144 10*3/uL Low 150-400 [facility] Comment on above: Order Comment: Speci men Type: BLOOD SPECIMENOrdering Facility: [facility] Address: [address] [place], [place] [address] Result Comment: Resu lts checked and verified.No clot detected. Performed By: #### 5 8410-2 ####[facility] [id number] [place] [address] [place] RBC (Bld) [#/Vol] 4.42 10*6/uL Normal 4.20-6.00 [facility] Comment on above: Order Comment: Speci men Type: BLOOD SPECIMENOrdering Facility: [facility] Address: [address] Performed By: #### 5 8410-2 ####[facility] [id number] [place] [address] [place] WBC (Bld) [#/Vol] 9.30 10*3/uL Normal 3.70-11.00 [facility] Comment on above: Order Comment: Speci men Type: BLOOD SPECIMENOrdering Facility: [facility] Address: [address] Performed By: #### 5 8410-2 ####[facility] [id number] [place] [address] [place] CONSULT PROGon 12-03-2022 CONSULT PROG Normal [facility] ECG COMPLETEon 12-03-2022 ECG COMPLETE Normal [facility] Gas and Carbon monoxide pane l (BldV)on 12-03-2022 Base excess Calc (BldV) [Moles/Vol] 1 mmol/L Normal 0-2 [facility] Comment on above: Order Comment: Speci men Type: VENOUS BLOOD SPECIMENOrdering Facility: [facility] Address: [address] Performed By: #### 2 4344-4 ####[facility] LABCLIA [id number] [place] [address] [place] Body temperature 97.52 [degF] Normal [facility] Comment on above: Order Comment: Speci men Type: VENOUS BLOOD SPECIMENOrdering Facility: [facility] Address: [address] [address] Performed By: #### 2 4344-4 ####[facility] LABCLIA [id number] [place] [address] [place] Calcium.ionized (Bld) [Mass/Vol] 1.17 mmol/L Normal 1.08-1.30 [facility] Comment on above: Order Comment: Speci men Type: VENOUS BLOOD SPECIMENOrdering Facility: [facility] Address: [address] [place] [address] Performed By: #### 2 4344-4 ####[facility]IA [id number] [place] [address] [place] Calcium.ionized adjusted to pH 7.4 (BldA) [Moles/Vol] 1.19 mmol/L Normal 1.08-1.30 [facility] Comment on above: Order Comment: Speci men Type: VENOUS BLOOD SPECIMENOrdering Facility: [facility] Address: [address] [place] [address] Performed By: #### 2 4344-4 ####[facility]IA [id number] [place] [address] [place] Carboxyhemoglobin (BldV) [Mass fraction] 0.6 % Normal 0.0-2.0 [facility] Comment on above: Order Comment: Speci men Type: VENOUS BLOOD SPECIMENOrdering Facility: [facility] Address: [address] [place] [address] Result Comment: Carb oxyhemoglobin Reference Range for Smokers: 2.0-8.0% Performed By: #### 2 4344-4 ####[facility] LABCLIA [id number] [place] [address] [place] CO2 (BldV) [Partial pressure] 38 mm[Hg] Low 42-55 [facility] Comment on above: Order Comment: Speci men Type: VENOUS BLOOD SPECIMENOrdering Facility: [facility] Address: [address] Performed By: #### 2 4344-4 ####[facility] LABCLIA [id number] [place] [address] [place] CO2 [Moles/Vol] 26 mmol/L Normal 25-29 [facility] Comment on above: Order Comment: Speci men Type: VENOUS BLOOD SPECIMENOrdering Facility: [facility] Address: [address] Performed By: #### 2 4344-4 ####[facility] LABCLIA [id number] [place] [address] [place] CO2 adjusted to patient's actual temperature (BldV) [Partial pressure] 37 mmHg Low 42-55 [facility] Comment on above: Order Comment: Speci men Type: VENOUS BLOOD SPECIMENOrdering Facility: [facility] Address: [address] Performed By: #### 2 4344-4 ####[facility] LABCLIA [id number] [place] [address] [place] Glucose [Mass/Vol] 110 mg/dL High 60-105 [facility] Comment on above: Order Comment: Speci men Type: VENOUS BLOOD SPECIMENOrdering Facility: [facility] Address: [address] [place] [address] Performed By: #### 2 4344-4 ####[facility] LABCLIA [id number] [place] [address] [place] HCO3 (Bld) [Moles/Vol] 25 mmol/L Normal 24-28 [facility] Comment on above: Order Comment: Speci men Type: VENOUS BLOOD SPECIMENOrdering Facility: [facility] Address: [address] Performed By: #### 2 4344-4 ####[facility] LABCLIA [id number] [place] [address] [place] Hematocrit (Bld) [Volume fraction] 36.2 % Low 39.0-51.0 [facility] Comment on above: Order Comment: Speci men Type: VENOUS BLOOD SPECIMENOrdering Facility: [facility] Address: [address] [place] [address] Performed By: #### 2 4344-4 ####[facility]IA [id number] [place] [address] [place] Hemoglobin (Bld) [Mass/Vol] 11.8 g/dL Low 13.0-17.0 [facility] Comment on above: Order Comment: Speci men Type: VENOUS BLOOD SPECIMENOrdering Facility: [facility] Address: [address] [place] [address] Performed By: #### 2 4344-4 ####[facility] [id number] [place] [address] [place] Lactate [Moles/Vol] 1.2 mmol/L Normal 0.5-2.2 [facility] Comment on above: Order Comment: Speci men Type: VENOUS BLOOD SPECIMENOrdering Facility: [facility] Address: [address] [place] [address] Performed By: #### 2 4344-4 ####[facility]IA [id number] [place] [address] [place] Methemoglobin (Bld) [Mass fraction] 1.5 % Normal 0.0-1.5 [facility] Comment on above: Order Comment: Speci men Type: VENOUS BLOOD SPECIMENOrdering Facility: [facility] Address: [address] [place] [address] Performed By: #### 2 4344-4 ####[facility]IA [id number] [place] [address] [place] O2 THERAPY RA=Room Air Normal [facility] Comment on above: Order Comment: Speci men Type: VENOUS BLOOD SPECIMENOrdering Facility: [facility] Address: [address] [place] [address] Performed By: #### 2 4344-4 ####[facility] LABCLIA [id number] [place] [address] [place] Oxygen (BldV) [Partial pressure] 56 mm[Hg] High 35-45 [facility] Comment on above: Order Comment: Speci men Type: VENOUS BLOOD SPECIMENOrdering Facility: [facility] Address: [address] Performed By: #### 2 4344-4 ####[facility] LABCLIA [id number] [place] [address] [place] Oxygen adjusted to patient's actual temperature (BldV) [Partial pressure] 54 mmHg High 35-45 [facility] Comment on above: Order Comment: Speci men Type: VENOUS BLOOD SPECIMENOrdering Facility: [facility] Address: [address] [place] [address] Performed By: #### 2 4344-4 ####[facility] LABCLIA [id number] [place] [address] [place] Oxygen saturation in Venous blood 88 % High 60-85 [facility] Comment on above: Order Comment: Speci men Type: VENOUS BLOOD SPECIMENOrdering Facility: [facility] Address: [address] [place] [address] Performed By: #### 2 4344-4 ####[facility] LABCLIA [id number] [place] [address] [place] Oxyhemoglobin (BldV) [Mass fraction] 86 % High 60-85 [facility] Comment on above: Order Comment: Speci men Type: VENOUS BLOOD SPECIMENOrdering Facility: [facility] Address: [address] [place] [address] Performed By: #### 2 4344-4 ####[facility] LABCLIA [id number] [place] [address] [place] pH (BldV) 7.43 [pH] High 7.32-7.42 [facility] Comment on above: Order Comment: Speci men Type: VENOUS BLOOD SPECIMENOrdering Facility: [facility] Address: [address] [address] Performed By: #### 2 4344-4 ####[facility]IA [id number] [place] [address] [place] pH adjusted to patient's actual temperature (BldV) 7.44 High 7.32-7.42 [facility] Comment on above: Order Comment: Speci men Type: VENOUS BLOOD SPECIMENOrdering Facility: [facility] Address: [address] [place] [address] Performed By: #### 2 4344-4 ####[facility]IA [id number] [place] [address] [place] Potassium [Moles/Vol] 3.7 mmol/L Normal 3.5-5.0 [facility] Comment on above: Order Comment: Speci men Type: VENOUS BLOOD SPECIMENOrdering Facility: [facility] Address: [address] [place], [place] [address] Performed By: #### 2 4344-4 ####[facility]IA [id number] [place] [address] [place] Sodium [Moles/Vol] 136 mmol/L Normal 136-144 [facility] Comment on above: Order Comment: Speci men Type: VENOUS BLOOD SPECIMENOrdering Facility: [facility] Address: [address] [place], [place] [address] Performed By: #### 2 4344-4 ####[facility]IA [id number] [place] [address] [place] MEDICAL EMERon 12-03-2022 MEDICAL KALEB Normal [facility] Magnesium SerPl-mCncon 12-03 Magnesium [Mass/Vol] 2.0 mg/dL Normal 1.7-2.3 [facility] Comment on above: Order Comment: Speci men Type: BLOOD SPECIMENOrdering Facility: [facility] Address: [address] [place], [place] [address] Performed By: #### 2 4362-6, ####[facility] LABCLIA [id number] [place] [address] [place] NURSING PROGon 12-03-2022 NURSING PROG Normal [facility] Renal function 2000 panelon 12-03-2022 Albumin [Mass/Vol] 3.0 g/dL Low 3.9-4.9 [facility] Comment on above: Order Comment: Speci men Type: BLOOD SPECIMENOrdering Facility: [facility] Address: [address] [place], [place] [address] Performed By: #### 2 4366, ####[facility] LABCLIA [id number] [place] [address] [place] Anion gap [Moles/Vol] 9 mmol/L Normal 9-18 [facility] Comment on above: Order Comment: Speci men Type: BLOOD SPECIMENOrdering Facility: [facility] Address: [address] [place], [place] [address] Performed By: #### 2 4366, ####[facility] LABCLIA [id number] [place] [id number] [place] Calcium [Mass/Vol] 8.9 mg/dL Normal 8.5-10.2 [facility] Comment on above: Order Comment: Speci men Type: BLOOD SPECIMENOrdering Facility: [facility] Address: [address] [place], [place] [address] Performed By: #### 2 4362-6, ####[facility] LABCLIA [id number] [place] [address] [place] Chloride [Moles/Vol] 104 mmol/L Normal 97-105 [facility] Comment on above: Order Comment: Speci men Type: BLOOD SPECIMENOrdering Facility: [facility] Address: [address] [place] [address] Performed By: #### 2 4362-6, ####[facility] LABIA [id number] [place] [address] [place] CO2 [Moles/Vol] 25 mmol/L Normal 22-30 [facility] Comment on above: Order Comment: Princessi men Type: BLOOD SPECIMENOrdering Facility: [facility] Address: [address] [place] [address] Performed By: #### 2 4362-6, ####[facility] LABIA [id number] [address] [place] Creatinine [Mass/Vol] 0.62 mg/dL Low 0.73-1.22 [facility] Comment on above: Order Comment: Speci men Type: BLOOD SPECIMENOrdering Facility: [facility] Address: [address] [place] [address] Performed By: #### 2 4362-6, ####[facility] [id number] [address] OF [facility] ESTIMATED GLOMERULAR FILTRATION RATE 107 mL/min/1.73m??? Normal >=60 [facility] Comment on above: Order Comment: Speci men Type: BLOOD SPECIMENOrdering Facility: [facility] Address: [address] [place] [address] Result Comment: Karina mated Glomerular Filtration Rate [...] actual GFR. Performed By: #### 2 4362-6, ####[facility] LABCLIA [id number] [address] [address] [place] Glucose [Mass/Vol] 87 mg/dL Normal 74-99 [facility] Comment on above: Order Comment: Chaz men Type: BLOOD SPECIMENOrdering Facility: [facility] Address: [address] [place] [address] Result Comment: The [place] Diabetes Association (ADA) provides guidance for cutoff [...] Standards of Medical Care in Diabetes 2016, [place] [employer]. Diabetes Care. 2016.39(Suppl 1). Performed By: #### 2 4362-6, ####[facility] LABCLIA [id number] [address] [address] [place] Phosphate [Mass/Vol] 2.4 mg/dL Low 2.7-4.8 [facility] Comment on above: Order Comment: Chaz trevizo Type: BLOOD SPECIMENOrdering Facility: [facility] Address: [address] [place] [address] Performed By: #### 2 4362-6, ####[facility] LABIA [id number] [address] [address] [place] Potassium [Moles/Vol] 3.8 mmol/L Normal 3.7-5.1 [facility] Comment on above: Order Comment: Speci men Type: BLOOD SPECIMENOrdering Facility: [facility] Address: [address] Performed By: #### 2 4362-6, ####[facility] LABCLIA [id number] [place] [address] [place] Sodium [Moles/Vol] 138 mmol/L Normal 136-144 [facility] Comment on above: Order Comment: Speci men Type: BLOOD SPECIMENOrdering Facility: [facility] Address: [address] [place] [address] Performed By: #### 2 4362-6, ####[facility] LABCLIA [id number] [place] [address] [place] Urea nitrogen [Mass/Vol] 24 mg/dL Normal 9-24 [facility] Comment on above: Order Comment: Speci men Type: BLOOD SPECIMENOrdering Facility: [facility] Address: [address] [place], [place] [address] Performed By: #### 2 4362-6, ####[facility] LABIA [id number] [place] [address] [place] THERAPY NTon 12-03-2022 THERAPY NT Normal [facility] Basic metabolic 2000 panelon 12-02-2022 Anion gap [Moles/Vol] 7 mmol/L Low 9-18 [facility] Comment on above: Order Comment: Speci men Type: BLOOD SPECIMENOrdering Facility: [facility] Address: [address] [place], [place] [address] Performed By: #### 1 9123-9, 2777-1, 11229-0 ####[facility] LABCLIA [id number] [place] [address] [place] Calcium [Mass/Vol] 8.5 mg/dL Normal 8.5-10.2 [facility] Comment on above: Order Comment: Speci men Type: BLOOD SPECIMENOrdering Facility: [facility] Address: [address] Performed By: #### 1 9123-9, 27704-18, 21001-3 ####[facility] LABCLIA [id number] [place] [address] [place] Chloride [Moles/Vol] 106 mmol/L High 97-105 [facility] Comment on above: Order Comment: Speci men Type: BLOOD SPECIMENOrdering Facility: [facility] Address: [address] [place] [address] Performed By: #### 1 9123-9, 27704-18, ####[facility] LABCLIA [id number] [place] [address] [place] CO2 [Moles/Vol] 27 mmol/L Normal 22-30 [facility] Comment on above: Order Comment: Speci men Type: BLOOD SPECIMENOrdering Facility: [facility] Address: [address] [place] [address] Performed By: #### 1 9123-9, 27704-18, ####[facility] LABCLIA [id number] [place] [address] [place] Creatinine [Mass/Vol] 0.69 mg/dL Low 0.73-1.22 [facility] Comment on above: Order Comment: Speci men Type: BLOOD SPECIMENOrdering Facility: [facility] Address: [address] [place] [address] Performed By: #### 1 9123-9, 27704-18, 54321-5 ####[facility] LABCLIA [id number] [place] [address] [place] ESTIMATED GLOMERULAR FILTRATION RATE 103 mL/min/1.73m??? Normal >=60 [facility] Comment on above: Order Comment: Speci men Type: BLOOD SPECIMENOrdering Facility: [facility] Address: [address] [place] [address] [place] [address] Result Comment: Karina mated Glomerular Filtration Rate [...] GFR. Performed By: #### 1 9123-9, 2777-, 44541-4 ####[facility] LABCLIA [id number] [place] [id number] [place] Glucose [Mass/Vol] 78 mg/dL Normal 74-99 [facility] Comment on above: Order Comment: Specisatu trevizo Type: BLOOD SPECIMENOrdering Facility: [facility] Address: [address] Result Comment: The [place] Diabetes Association (ADA) provides guidance for cutoff [...] Standards of Medical Care in Diabetes 2016, [place] Diabetes [employer]. Diabetes Care. 2016.39(Suppl 1). Performed By: #### 1 9123-9, 2777-, 98833-3 ####[facility] LABIA [id number] [place] [id number] [place] Potassium [Moles/Vol] 3.6 mmol/L Low 3.7-5.1 [facility] Comment on above: Order Comment: Specisatu men Type: BLOOD SPECIMENOrdering Facility: [facility] Address: [address] [place] [address] Performed By: #### 1 9123-9, 2777-, 05597-0 ####[facility] LABCLIA [id number] [place] [address] [place] Sodium [Moles/Vol] 140 mmol/L Normal 136-144 [facility] Comment on above: Order Comment: Speci men Type: BLOOD SPECIMENOrdering Facility: [facility] Address: [address] [place] [address] Performed By: #### 1 9123-9, 2777-, 57415-0 ####[facility] LABIA [id number] [place] [address] [place] Urea nitrogen [Mass/Vol] 26 mg/dL High 9-24 [facility] Comment on above: Order Comment: Speci men Type: BLOOD SPECIMENOrdering Facility: [facility] Address: [address] [place] [address] Performed By: #### 1 9123-9, 2777-, 07537-9 ####[facility] LABIA [id number] [place] [address] [place] CASE MANAGEMon 12-02-2022 CASE MANAGEM Normal [facility] CBC panel Auto (Bld)on 12-02 Erythrocyte distribution width (RBC) [Ratio] 16.2 % High 11.5-15.0 [facility] Comment on above: Order Comment: Speci men Type: BLOOD SPECIMENOrdering Facility: [facility] Address: [address] Performed By: #### 5 8410-2 ####[facility] LABIA [id number] [place] [address] [place] Hematocrit (Bld) [Volume fraction] 39.0 % Normal 39.0-51.0 [facility] Comment on above: Order Comment: Speci men Type: BLOOD SPECIMENOrdering Facility: [facility] Address: [address] [place] [address] Performed By: #### 5 8410-2 ####[facility] LABIA [id number] [address] [place] Hemoglobin (Bld) [Mass/Vol] 12.6 g/dL Low 13.0-17.0 [facility] Comment on above: Order Comment: Speci men Type: BLOOD SPECIMENOrdering Facility: [facility] Address: [address] [place], [place] [address] Performed By: #### 5 8410-2 ####[facility] [id number] [address] [place] MCH (RBC) [Entitic mass] 27.8 pg Normal 26.0-34.0 [facility] Comment on above: Order Comment: Speci men Type: BLOOD SPECIMENOrdering Facility: [facility] Address: [address] [place], [place] [address] Performed By: #### 5 8410-2 ####[facility] [id number] [address] [place] MCHC (RBC) [Mass/Vol] 32.3 g/dL Normal 30.5-36.0 [facility] Comment on above: Order Comment: Speci men Type: BLOOD SPECIMENOrdering Facility: [facility] Address: [address] [place], [place] [address] Performed By: #### 5 8410-2 ####[facility] LABIA [id number] [address] [place] MCV (RBC) [Entitic vol] 85.9 fL Normal 80.0-100.0 [facility] Comment on above: Order Comment: Speci men Type: BLOOD SPECIMENOrdering Facility: [facility] Address: [address] [place] [address] Performed By: #### 5 8410-2 ####[facility] [id number] [place] [address] [place] Nucleated RBC (Bld) [#/Vol] 10*3/uL Normal <0.01 [facility] Comment on above: Order Comment: Speci men Type: BLOOD SPECIMENOrdering Facility: [facility] Address: [address] [place] [address] Performed By: #### 5 8410-2 ####[facility] LABIA [id number] [place] [address] [place] Platelet mean volume (Bld) [Entitic vol] 12.8 fL High 9.0-12.7 [facility] Comment on above: Order Comment: Speci men Type: BLOOD SPECIMENOrdering Facility: [facility] Address: [address] [place] [address] Performed By: #### 5 8410-2 ####[facility] LABIA [id number] [place] [address] [place] Platelets (Bld) [#/Vol] 129 10*3/uL Low 150-400 [facility] Comment on above: Order Comment: Speci men Type: BLOOD SPECIMENOrdering Facility: [facility] Address: [address] [place] [address] Result Comment: No c lot detected.Results checked and verified. Performed By: #### 5 8410-2 ####[facility] LABIA [id number] [place] [address] [place] RBC (Bld) [#/Vol] 4.54 10*6/uL Normal 4.20-6.00 [facility] Comment on above: Order Comment: Speci men Type: BLOOD SPECIMENOrdering Facility: [facility] Address: [address] [place] [address] Performed By: #### 5 8410-2 ####[facility] LABCLIA [id number] [place] [address] [place] WBC (Bld) [#/Vol] 9.16 10*3/uL Normal 3.70-11.00 [facility] Comment on above: Order Comment: Speci men Type: BLOOD SPECIMENOrdering Facility: [facility] Address: [address] [place] [address] Performed By: #### 5 8410-2 ####[facility] LABIA [id number] [place] [address] [place] CONSULT PROGon 12-02-2022 CONSULT PROG Normal [facility] ECG COMPLETEon 12-02-2022 ECG COMPLETE Normal [facility] Magnesium SerPl-mCncon 12-02 Magnesium [Mass/Vol] 1.8 mg/dL Normal 1.7-2.3 [facility] Comment on above: Order Comment: Speci men Type: BLOOD SPECIMENOrdering Facility: [facility] Address: [address] [place] [address] Performed By: #### 1 9123-9, 2777-1, 99594-0 ####[facility] LABIA [id number] [place] [address] [place] Phosphate SerPl-mCncon 12-02 Phosphate [Mass/Vol] 2.7 mg/dL Normal 2.7-4.8 [facility] Comment on above: Order Comment: Speci men Type: BLOOD SPECIMENOrdering Facility: [facility] Address: [address] Performed By: #### 1 9123-9, 2777-1, 23906-3 ####[facility] [id number] [place] [id number] [place] THERAPY NTon 12-02-2022 THERAPY NT Normal [facility] Basic metabolic 2000 panelon 12-01-2022 Anion gap [Moles/Vol] 10 mmol/L Normal 9-18 [facility] Comment on above: Order Comment: Speci men Type: BLOOD SPECIMENOrdering Facility: [facility] Address: [address] [place] [address] Performed By: #### 2 4321-2 ####[facility] LABCLIA [id number] [place] [address] [place] Anion gap [Moles/Vol] 7 mmol/L Low 9-18 [facility] Comment on above: Order Comment: Speci men Type: BLOOD SPECIMENOrdering Facility: [facility] Address: [address] [place] [address] Performed By: #### 2 4321-2, 2776-10, ####[facility] LABCLIA [id number] [place] [address] [place] Calcium [Mass/Vol] 8.8 mg/dL Normal 8.5-10.2 [facility] Comment on above: Order Comment: Speci men Type: BLOOD SPECIMENOrdering Facility: [facility] Address: [address] [place] [address] Performed By: #### 2 4321-2 ####[facility] LABCLIA [id number] [place] [address] [place] Calcium [Mass/Vol] 8.9 mg/dL Normal 8.5-10.2 [facility] Comment on above: Order Comment: Speci men Type: BLOOD SPECIMENOrdering Facility: [facility] Address: [address] [place] Performed By: #### 2 4321-2, 2776-10, ####[facility] LABCLIA [id number] [place] [id number] [place] Chloride [Moles/Vol] 103 mmol/L Normal 97-105 [facility] Comment on above: Order Comment: Speci men Type: BLOOD SPECIMENOrdering Facility: [facility] Address: [address] [place] [address] Performed By: #### 2 4321-2 ####[facility] LABCLIA [id number] [facility] [place] [address] [place] Chloride [Moles/Vol] 104 mmol/L Normal 97-105 [facility] Comment on above: Order Comment: Speci men Type: BLOOD SPECIMENOrdering Facility: [facility] Address: [address] [place] [address] Performed By: #### 2 4321-2, 2776-10, ####[facility] LABCLIA [id number] [facility] [place] [address] [place] CO2 [Moles/Vol] 25 mmol/L Normal 22-30 [facility] Comment on above: Order Comment: Speci men Type: BLOOD SPECIMENOrdering Facility: [facility] Address: [address] [place] [address] Performed By: #### 2 4320-2 ####[facility] LABCLIA [id number] [address] Performed By: #### 2 4321-2, 2776-10, ####[facility] LABCLIA [id number] [address] [place] Creatinine [Mass/Vol] 0.93 mg/dL Normal 0.73-1.22 [facility] Comment on above: Order Comment: Speci men Type: BLOOD SPECIMENOrdering Facility: [facility] Address: [address] [place] [address] Performed By: #### 2 4321-2 ####[facility] LABCLIA [id number] [address] Performed By: #### 2 4321-2, 2776-10, ####[facility] LABCLIA [id number] [place] [id number] [place] ESTIMATED GLOMERULAR FILTRATION RATE 92 mL/min/1.73m??? Normal >=60 [facility] Comment on above: Order Comment: Chaz trevizo Type: BLOOD SPECIMENOrdering Facility: [facility] Address: [address] [place] [address] Result Comment: Karina mated Glomerular Filtration Rate [...] actual GFR. Performed By: #### 2 4321-2 ####[facility] LABCLIA [id number] [address] OF [facility] Performed By: #### 2 4321-2, 2777-1, 17391-0 ####[facility] LABCLIA [id number] [address] STATES OF [facility] Glucose [Mass/Vol] 81 mg/dL Normal 74-99 [facility] Comment on above: Order Comment: Chaz trevizo Type: BLOOD SPECIMENOrdering Facility: [facility] Address: [address] [place] [address] Result Comment: The [place] Diabetes Association (ADA) provides guidance for cutoff [...] Standards of Medical Care in Diabetes 2016, [place] [employer]. Diabetes Care. 2016.39(Suppl 1). Performed By: #### 2 4321-2 ####[facility] LABCLIA [id number] [address] [place] Performed By: #### 2 4321-2, 27704-18, ####[facility] LABCLIA [id number] [place] [address] [place] Potassium [Moles/Vol] 4.2 mmol/L Normal 3.7-5.1 [facility] Comment on above: Order Comment: Speci men Type: BLOOD SPECIMENOrdering Facility: [facility] Address: [address] [place] [address] Performed By: #### 2 432-2 ####[facility] LABCLIA [id number] [address] [place] Potassium [Moles/Vol] 4.3 mmol/L Normal 3.7-5.1 [facility] Comment on above: Order Comment: Speci men Type: BLOOD SPECIMENOrdering Facility: [facility] Address: [address] Performed By: #### 2 4321-2, 2776-10, ####[facility] LABCLIA [id number] [place] [address] [place] Sodium [Moles/Vol] 138 mmol/L Normal 136-144 [facility] Comment on above: Order Comment: Speci men Type: BLOOD SPECIMENOrdering Facility: [facility] Address: [address] [place] [address] Performed By: #### 2 432-2 ####[facility] LABCLIA [id number] [place] [id number] [place] Sodium [Moles/Vol] 136 mmol/L Normal 136-144 [facility] Comment on above: Order Comment: Speci men Type: BLOOD SPECIMENOrdering Facility: [facility] Address: [address] [place] [address] Performed By: #### 2 4321-2, 2776-10, ####[facility] LABCLIA [id number] [place] [address] [place] Urea nitrogen [Mass/Vol] 34 mg/dL High 9-24 [facility] Comment on above: Order Comment: Speci men Type: BLOOD SPECIMENOrdering Facility: [facility] Address: [address] [place] [address] Performed By: #### 2 4321-2 ####[facility] LABCLIA [id number] [place] [address] [place] Urea nitrogen [Mass/Vol] 35 mg/dL High 9-24 [facility] Comment on above: Order Comment: Speci men Type: BLOOD SPECIMENOrdering Facility: [facility] Address: [address] [place] [address] Performed By: #### 2 4321-2, 2777-1, 35904-5 ####[facility] LABCLIA [id number] [place] [address] [place] CBC panel Auto (Bld)on 12-01 Erythrocyte distribution width (RBC) [Ratio] 16.6 % High 11.5-15.0 [facility] Comment on above: Order Comment: Speci men Type: BLOOD SPECIMENOrdering Facility: [facility] Address: [address] [place] [address] Performed By: #### 5 8410-2 ####[facility] LABCLIA [id number] [place] [address] [place] Hematocrit (Bld) [Volume fraction] 38.1 % Low 39.0-51.0 [facility] Comment on above: Order Comment: Speci men Type: BLOOD SPECIMENOrdering Facility: [facility] Address: [address] [place] [address] Performed By: #### 5 8410-2 ####[facility] LABCLIA [id number] [place] [id number] [address] [place] Hemoglobin (Bld) [Mass/Vol] 12.5 g/dL Low 13.0-17.0 [facility] Comment on above: Order Comment: Speci men Type: BLOOD SPECIMENOrdering Facility: [facility] Address: [address] [place] [address] Performed By: #### 5 8410-2 ####[facility] LABCLIA [id number] [address] [place] MCH (RBC) [Entitic mass] 28.1 pg Normal 26.0-34.0 [facility] Comment on above: Order Comment: Speci men Type: BLOOD SPECIMENOrdering Facility: [facility] Address: [address] [place] [address] Performed By: #### 5 8410-2 ####[facility] LABCLIA [id number] [address] OF [facility] MCHC (RBC) [Mass/Vol] 32.8 g/dL Normal 30.5-36.0 [facility] Comment on above: Order Comment: Speci men Type: BLOOD SPECIMENOrdering Facility: [facility] Address: [address] [place], [place] [address] Performed By: #### 5 8410-2 ####[facility] LABCLIA [id number] [address] [place] MCV (RBC) [Entitic vol] 85.6 fL Normal 80.0-100.0 [facility] Comment on above: Order Comment: Speci men Type: BLOOD SPECIMENOrdering Facility: [facility] Address: [address] [place] [address] Performed By: #### 5 8410-2 ####[facility] LABCLIA [id number] [address] [place] Nucleated RBC (Bld) [#/Vol] 10*3/uL Normal <0.01 [facility] Comment on above: Order Comment: Speci men Type: BLOOD SPECIMENOrdering Facility: [facility] Address: [address] [place] [address] Performed By: #### 5 8410-2 ####[facility] LABIA [id number] [place] [address] [place] Platelet mean volume (Bld) [Entitic vol] 12.5 fL Normal 9.0-12.7 [facility] Comment on above: Order Comment: Speci men Type: BLOOD SPECIMENOrdering Facility: [facility] Address: [address] [place] [address] Performed By: #### 5 8410-2 ####[facility] LABIA [id number] [place] [address] [place] Platelets (Bld) [#/Vol] 121 10*3/uL Low 150-400 [facility] Comment on above: Order Comment: Speci men Type: BLOOD SPECIMENOrdering Facility: [facility] Address: [address] [place] [address] Result Comment: Resu lts checked and verified.No clot detected. Performed By: #### 5 8410-2 ####[facility] LABIA [id number] [place] [address] [place] RBC (Bld) [#/Vol] 4.45 10*6/uL Normal 4.20-6.00 [facility] Comment on above: Order Comment: Speci men Type: BLOOD SPECIMENOrdering Facility: [facility] Address: [address] [place] [address] Performed By: #### 5 8410-2 ####[facility] LABIA [id number] [place] [address] [place] WBC (Bld) [#/Vol] 9.67 10*3/uL Normal 3.70-11.00 [facility] Comment on above: Order Comment: Speci men Type: BLOOD SPECIMENOrdering Facility: [facility] Address: [address] [place] [address] Performed By: #### 5 8410-2 ####[facility] LABCLIA [id number] [place] [address] [place] CONSULTon 12-01-2022 CONSULT Normal [facility] ECG COMPLETEon 12-01-2022 ECG COMPLETE Normal [facility] HISTORY PHYSICALon HISTORY PHYSICAL Normal [facility] Magnesium SerPl-ncon 12-01 Magnesium [Mass/Vol] 2.0 mg/dL Normal 1.7-2.3 [facility] Comment on above: Order Comment: Speci men Type: BLOOD SPECIMENOrdering Facility: [facility] Address: [address] [place] [address] [place] [address] Performed By: #### 2 4321-2, 2777-1, ####[facility] LABCLIA [id number] [place] [address] [place] NUTRITIONon 12-01-2022 NUTRITION Normal [facility] Phosphate SerPl-ncon 12-01 Phosphate [Mass/Vol] 2.3 mg/dL Low 2.7-4.8 [facility] Comment on above: Order Comment: Speci men Type: BLOOD SPECIMENOrdering Facility: [facility] Address: Eric [facility] [place] [address] Performed By: #### 2 4321-2, 2777-1, ####[facility] LABCLIA [id number] [place] [address] [place] SEPSIS LACTATEon 12-01-2022 Lactate [Moles/Vol] 0.9 mmol/L Normal <=2.0 [facility] Comment on above: Order Comment: Speci men Type: BLOOD SPECIMENOrdering Facility: [facility] Address: [address] [place] [address] Performed By: #### S LACT ####[facility] LABCLIA [id number] [address] [address] [place] THERAPY NTon 12-01-2022 THERAPY NT Normal [facility] KIDNEY/BLADDERon 12-01-19 23 US KIDNEY/BLADDER Normal [facility] LEG VEIN DVT MARIXA VAS LABo n 12-01-2022 US LEG VEIN DVT MARIXA VAS LAB Normal [facility] Bacteria Bld Culton 11-30-19 Bacteria identified Cx Nom (Bld) CULTURE, BLOOD: No growth 5 days Normal [facility] Comment on above: Performed By: #### 6 00-7 ####[facility] LABCLIA [id number] [place] [address] [place] Basic metabolic 2000 panelon 11-30-2022 Anion gap [Moles/Vol] 9 mmol/L Normal 9-18 [facility] Comment on above: Order Comment: Speci men Type: BLOOD SPECIMENOrdering Facility: [facility] Address: [address] [place] [address] Performed By: #### 2 777-1, 97152-1, ####[facility] LABCLIA [id number] [place] [address] [place] Calcium [Mass/Vol] 8.7 mg/dL Normal 8.5-10.2 [facility] Comment on above: Order Comment: Speci men Type: BLOOD SPECIMENOrdering Facility: [facility] Address: [address] [place] [address] Performed By: #### 2 777-1, 43483-5, ####[facility] LABIA [id number] [place] [id number] [place] Chloride [Moles/Vol] 106 mmol/L High 97-105 [facility] Comment on above: Order Comment: Speci men Type: BLOOD SPECIMENOrdering Facility: [facility] Address: [address] [place], [place] [address] Performed By: #### 2 777-1, 80301-6, ####[facility] LABCLIA [id number] [place] [address] [place] CO2 [Moles/Vol] 22 mmol/L Normal 22-30 [facility] Comment on above: Order Comment: Speci men Type: BLOOD SPECIMENOrdering Facility: [facility] Address: [address] [place] [address] Performed By: #### 2 777-1, , ####[facility] LABIA [id number] [place] [address] [place] Creatinine [Mass/Vol] 0.96 mg/dL Normal 0.73-1.22 [facility] Comment on above: Order Comment: Speci men Type: BLOOD SPECIMENOrdering Facility: [facility] Address: [address] [place] [address] Performed By: #### 2 777-1, , ####[facility] LABIA [id number] [place] [address] [place] ESTIMATED GLOMERULAR FILTRATION RATE 88 mL/min/1.73m??? Normal >=60 [facility] Comment on above: Order Comment: Speci men Type: BLOOD SPECIMENOrdering Facility: [facility] Address: [address] [place] [address] Result Comment: Karina mated Glomerular Filtration Rate [...] actual GFR. Performed By: #### 2 777-1, 52296-9, ####[facility] LABIA [id number] [place] [id number] [place] Glucose [Mass/Vol] 109 mg/dL High 74-99 [facility] Comment on above: Order Comment: Speci men Type: BLOOD SPECIMENOrdering Facility: [facility] Address: [address] [place] [address] Result Comment: The [employer] Diabetes Association (ADA) provides guidance for cutoff [...] Standards of Medical Care in Diabetes 2016, [employer]. Diabetes Care. 2016.39(Suppl 1). Performed By: #### 2 777-1, 02231-3, ####[facility] LABCLIA [id number] [place] [address] [place] Potassium [Moles/Vol] 4.3 mmol/L Normal 3.7-5.1 [facility] Comment on above: Order Comment: Speci men Type: BLOOD SPECIMENOrdering Facility: [facility] Address: [address] [place], [place] [address] Performed By: #### 2 777-1, , ####[facility] LABCLIA [id number] [place] [address] [place] Sodium [Moles/Vol] 137 mmol/L Normal 136-144 [facility] Comment on above: Order Comment: Speci men Type: BLOOD SPECIMENOrdering Facility: [facility] Address: [address] [phone] Performed By: #### 2 777-1, 94956-8, ####[facility] LABCLIA [id number] [place] [address] [place] Urea nitrogen [Mass/Vol] 36 mg/dL High 9-24 [facility] Comment on above: Order Comment: Speci men Type: BLOOD SPECIMENOrdering Facility: [facility] Address: [address] [place] [address] Performed By: #### 2 777-1, 98604-2, 56076-6 ####[facility] LABCLIA [id number] [place] [address] [place] CBC panel Auto (Bld)on 11-30 Erythrocyte distribution width (RBC) [Ratio] 17.2 % High 11.5-15.0 [facility] Comment on above: Order Comment: Speci men Type: BLOOD SPECIMENOrdering Facility: [facility] Address: [address] [place] [address] Performed By: #### 5 8410-2 ####[facility] LABCLIA [id number] [place] [address] [place] Hematocrit (Bld) [Volume fraction] 36.4 % Low 39.0-51.0 [facility] Comment on above: Order Comment: Speci men Type: BLOOD SPECIMENOrdering Facility: [facility] Address: [address] [place] [address] Performed By: #### 5 8410-2 ####[facility] LABCLIA [id number] [place] [address] [place] Hemoglobin (Bld) [Mass/Vol] 11.7 g/dL Low 13.0-17.0 [facility] Comment on above: Order Comment: Speci men Type: BLOOD SPECIMENOrdering Facility: [facility] Address: [address] [place] [address] Performed By: #### 5 8410-2 ####[facility] LABCLIA [id number] [place] [address] [place] MCH (RBC) [Entitic mass] 27.9 pg Normal 26.0-34.0 [facility] Comment on above: Order Comment: Speci men Type: BLOOD SPECIMENOrdering Facility: [facility] Address: [address] [place] [address] Performed By: #### 5 8410-2 ####[facility] LABCLIA [id number] [place] [address] [place] MCHC (RBC) [Mass/Vol] 32.1 g/dL Normal 30.5-36.0 [facility] Comment on above: Order Comment: Speci men Type: BLOOD SPECIMENOrdering Facility: [facility] Address: [address] [place] [address] Performed By: #### 5 8410-2 ####[facility] LABCLIA [id number] [place] [address] [place] MCV (RBC) [Entitic vol] 86.9 fL Normal 80.0-100.0 [facility] Comment on above: Order Comment: Speci men Type: BLOOD SPECIMENOrdering Facility: [facility] Address: [address] [place], [place] [address] Performed By: #### 5 8410-2 ####[facility] LABCLIA [id number] [place] [address] [place] Nucleated RBC (Bld) [#/Vol] 10*3/uL Normal <0.01 [facility] Comment on above: Order Comment: Speci men Type: BLOOD SPECIMENOrdering Facility: [facility] Address: [address] [place], [place] [address] Performed By: #### 5 8410-2 ####[facility] LABCLIA [id number] [place] [address] [place] Platelet mean volume (Bld) [Entitic vol] Normal [facility] Comment on above: Order Comment: Speci men Type: BLOOD SPECIMENOrdering Facility: [facility] Address: [address] [place] [address] Result Comment: Unab le to Report. Performed By: #### 5 8410-2 ####[facility] LABCLIA [id number] [place] [address] [place] Platelets (Bld) [#/Vol] 103 10*3/uL Low 150-400 [facility] Comment on above: Order Comment: Speci men Type: BLOOD SPECIMENOrdering Facility: [facility] Address: [address] [place] [address] Result Comment: No c lot detected.Results checked and verified. Performed By: #### 5 8410-2 ####[facility] LABIA [id number] [place] [address] [place] RBC (Bld) [#/Vol] 4.19 10*6/uL Low 4.20-6.00 [facility] Comment on above: Order Comment: Speci men Type: BLOOD SPECIMENOrdering Facility: [facility] Address: [address] [place] [address] Performed By: #### 5 8410-2 ####[facility] LABIA [id number] [place] [address] [place] WBC (Bld) [#/Vol] 9.45 10*3/uL Normal 3.70-11.00 [facility] Comment on above: Order Comment: Speci men Type: BLOOD SPECIMENOrdering Facility: [facility] Address: [address] [place] [address] Performed By: #### 5 8410-2 ####[facility] LABIA [id number] [place] [address] [place] ECG COMPLETEon 11-30-2022 ECG COMPLETE Normal [facility] Magnesium SerPl-mCncon 11-30 Magnesium [Mass/Vol] 2.1 mg/dL Normal 1.7-2.3 [facility] Comment on above: Order Comment: Speci men Type: BLOOD SPECIMENOrdering Facility: [facility] Address: [address] [place] [address] Performed By: #### 2 777-1, 93350-6, ####[facility] LABCLIA [id number] [place] [address] [place] Phosphate SerPl-mCncon 11-30 Phosphate [Mass/Vol] 2.8 mg/dL Normal 2.7-4.8 [facility] Comment on above: Order Comment: Speci men Type: BLOOD SPECIMENOrdering Facility: [facility] Address: [address] [place] [address] Performed By: #### 2 777-1, 18078-1, ####[facility] LABCLIA [id number] [place] [address] [place] Ammonia Plas-sCncon 11-29-19 23 Ammonia (P) [Moles/Vol] 22 umol/L Normal 16-60 [facility] Comment on above: Order Comment: Speci men Type: BLOOD SPECIMENOrdering Facility: [facility] Address: [address] [place] [address] Result Comment: Resu lt may be falsely increased due to the fact that the sample was not received on ice. Performed By: #### 1 6362-6 ####[facility] LABCLIA [id number] [place] [address] [place] Basic metabolic 2000 panelon 11-29-2022 Anion gap [Moles/Vol] 7 mmol/L Low 9-18 [facility] Comment on above: Order Comment: Speci men Type: BLOOD SPECIMENOrdering Facility: [facility] Address: [address] [place] [address] Performed By: #### 1 9123-9, 2157-6, LIPNF, 80458-0, 3016-3, 2777-1, 3024-7 ####[facility] LABCLIA [id number] [place] [id number] [place] Calcium [Mass/Vol] 8.7 mg/dL Normal 8.5-10.2 [facility] Comment on above: Order Comment: Speci men Type: BLOOD SPECIMENOrdering Facility: [facility] Address: [address] [place] [address] Performed By: #### 1 9123-9, 2157-6, LIPNF, 33335-0, 3016-3, 2777-1, 3024-7 ####[facility] LABCLIA [id number] [place] [address] [place] Chloride [Moles/Vol] 111 mmol/L High 97-105 [facility] Comment on above: Order Comment: Speci men Type: BLOOD SPECIMENOrdering Facility: [facility] Address: [address] [place] [address] Performed By: #### 1 9123-9, 2156-6, LIPNF, 56460-5, 3016-3, 2777-1, 3024-7 ####[facility] LABCLIA [id number] [place] [address] [place] CO2 [Moles/Vol] 23 mmol/L Normal 22-30 [facility] Comment on above: Order Comment: Speci men Type: BLOOD SPECIMENOrdering Facility: [facility] Address: [address] [place], [place] [address] Performed By: #### 1 9123-9, 2156-6, LIPNF, 40645-8, 3016-3, 2777-1, 3024-7 ####[facility] LABCLIA [id number] [place] [address] [place] Creatinine [Mass/Vol] 1.08 mg/dL Normal 0.73-1.22 [facility] Comment on above: Order Comment: Speci men Type: BLOOD SPECIMENOrdering Facility: [facility] Address: [address] [place] [address] Performed By: #### 1 9123-9, 2157-6, LIPNF, 75944-2, 3016-3, 2777-1, 3024-7 ####[facility] LABIA [id number] [place] [id number] [place] ESTIMATED GLOMERULAR FILTRATION RATE 77 mL/min/1.73m??? Normal >=60 [facility] Comment on above: Order Comment: Chaz trevizo Type: BLOOD SPECIMENOrdering Facility: [facility] Address: [address] [phone] Result Comment: Karina mated Glomerular Filtration Rate [...] Performed By: #### 1 9123-9, 2157-6, LIPNF, 10395-7, 3016-3, 2777-1, 3024-7 ####[facility] LABIA [id number] [place] [id number] [place] Glucose [Mass/Vol] 94 mg/dL Normal 74-99 [facility] Comment on above: Order Comment: Chaz trevizo Type: BLOOD SPECIMENOrdering Facility: [facility] Address: [address] [place] [id number] Result Comment: The [place] Diabetes [employer] (ADA) provides guidance for cutoff [...] Standards of Medical Care in Diabetes 2016, [place] [employer]. Diabetes Care. 2016.39(Suppl 1). Performed By: #### 1 9122-9, 2156-6, LIPNF, 41261-8, 3016-3, 2777-1, 3023-7 ####[facility] LABCLIA [id number] [address] [address] [place] Potassium [Moles/Vol] 4.2 mmol/L Normal 3.7-5.1 [facility] Comment on above: Order Comment: Speci men Type: BLOOD SPECIMENOrdering Facility: [facility] Address: [address] [place] [address] Performed By: #### 1 9122-9, 6, LIPNF, 77761-9, 3016-3, 2776-1, 7 ####[facility] LABCLIA [id number] [place] [address] [place] Sodium [Moles/Vol] 141 mmol/L Normal 136-144 [facility] Comment on above: Order Comment: Speci men Type: BLOOD SPECIMENOrdering Facility: [facility] Address: [address] [place] [place] [address] Performed By: #### 1 9122-9, 6, LIPNF, 69726-0, 3016-3, 2777-1, 7 ####[facility] LABCLIA [id number] [place] [address] [place] Urea nitrogen [Mass/Vol] 38 mg/dL High 9-24 [facility] Comment on above: Order Comment: Speci men Type: BLOOD SPECIMENOrdering Facility: [facility] Address: [address] [place] [address] Performed By: #### 1 9122-9, 6, LIPNF, 26976-3, 3016-3, 2777-1, 7 ####[facility] LABCLIA [id number] [place] [address] [place] CBC panel Auto (Bld)on 11-29 Erythrocyte distribution width (RBC) [Ratio] 17.2 % High 11.5-15.0 [facility] Comment on above: Order Comment: Speci men Type: BLOOD SPECIMENOrdering Facility: [facility] Address: [address] [place] [address] Performed By: #### 5 8410-2 ####[facility] LABIA [id number] [address] STATES OF [facility] Hematocrit (Bld) [Volume fraction] 33.5 % Low 39.0-51.0 [facility] Comment on above: Order Comment: Speci men Type: BLOOD SPECIMENOrdering Facility: [facility] Address: [address] [place] [address] Performed By: #### 5 8410-2 ####[facility] LABIA [id number] [address] [place] Hemoglobin (Bld) [Mass/Vol] 11.1 g/dL Low 13.0-17.0 [facility] Comment on above: Order Comment: Speci men Type: BLOOD SPECIMENOrdering Facility: [facility] Address: [address] [place] [address] Performed By: #### 5 8410-2 ####[facility] LABIA [id number] [place] [address] [place] MCH (RBC) [Entitic mass] 27.8 pg Normal 26.0-34.0 [facility] Comment on above: Order Comment: Speci men Type: BLOOD SPECIMENOrdering Facility: [facility] Address: [address] [place], [place] [address] Performed By: #### 5 8410-2 ####[facility] LABIA [id number] [place] [address] [place] MCHC (RBC) [Mass/Vol] 33.1 g/dL Normal 30.5-36.0 [facility] Comment on above: Order Comment: Speci men Type: BLOOD SPECIMENOrdering Facility: [facility] Address: [address] [place], [place] [address] Performed By: #### 5 8410-2 ####[facility] LABIA [id number] [address] [place] MCV (RBC) [Entitic vol] 83.8 fL Normal 80.0-100.0 [facility] Comment on above: Order Comment: Speci men Type: BLOOD SPECIMENOrdering Facility: [facility] Address: [address] [place], [place] [address] Performed By: #### 5 8410-2 ####[facility] [id number] [place] [address] [place] Nucleated RBC (Bld) [#/Vol] 10*3/uL Normal <0.01 [facility] Comment on above: Order Comment: Speci men Type: BLOOD SPECIMENOrdering Facility: [facility] Address: [address] [place] [address] Performed By: #### 5 8410-2 ####[facility] LABIA [id number] [place] [address] [place] Platelet mean volume (Bld) [Entitic vol] 12.8 fL High 9.0-12.7 [facility] Comment on above: Order Comment: Speci men Type: BLOOD SPECIMENOrdering Facility: [facility] Address: [address] [place] [address] Performed By: #### 5 8410-2 ####[facility] LABIA [id number] [place] [address] [place] Platelets (Bld) [#/Vol] 101 10*3/uL Low 150-400 [facility] Comment on above: Order Comment: Speci men Type: BLOOD SPECIMENOrdering Facility: [facility] Address: [address] [place] [address] Result Comment: Resu lts checked and verified.No clot detected. Performed By: #### 5 8410-2 ####[facility] [id number] [place] [address] [place] RBC (Bld) [#/Vol] 4.00 10*6/uL Low 4.20-6.00 [facility] Comment on above: Order Comment: Speci men Type: BLOOD SPECIMENOrdering Facility: [facility] Address: [address] [place] [address] Performed By: #### 5 8410-2 ####[facility] [id number] [place] [address] [place] WBC (Bld) [#/Vol] 11.59 10*3/uL High 3.70-11.00 [facility] Comment on above: Order Comment: Speci men Type: BLOOD SPECIMENOrdering Facility: [facility] Address: [address] [place] [address] Performed By: #### 5 8410-2 ####[facility] [id number] [place] [address] [place] CK SerPl-cCncon 11-29-2022 CK [Catalytic activity/Vol] 21 U/L Low 51-298 [facility] Comment on above: Order Comment: Speci men Type: BLOOD SPECIMENOrdering Facility: [facility] Address: [address] [place] [address] Performed By: #### 1 9123-9, 2157-6, LIPNF, 43173-3, 3016-3, 2777-1, 3024-7 ####[facility] LABIA [id number] [place] [address] [place] [address] BRAIN WO IVCONon 11-29-19 CT BRAIN WO IVCON Normal [facility] ECG COMPLETEon 11-29-2022 ECG COMPLETE Normal [facility] Gas and Carbon monoxide pane l (BldV)on 11-29-2022 BASE DEFICIT, VENOUS -2 mmol/L Normal -2-0 [facility] Comment on above: Order Comment: Speci men Type: VENOUS BLOOD SPECIMENOrdering Facility: [facility] Address: [address] [place] [address] Performed By: #### 2 4344-4 ####[facility] LABCLIA [id number] [address] [place] Body temperature 98.6 [degF] Normal [facility] Comment on above: Order Comment: Speci men Type: VENOUS BLOOD SPECIMENOrdering Facility: [facility] Address: [address] [place] [address] Performed By: #### 2 4344-4 ####[facility] LABCLIA [id number] [address] [place] Calcium.ionized (Bld) [Mass/Vol] 1.22 mmol/L Normal 1.08-1.30 [facility] Comment on above: Order Comment: Speci men Type: VENOUS BLOOD SPECIMENOrdering Facility: [facility] Address: [address] [place] [address] Performed By: #### 2 4344-4 ####[facility] LABCLIA [id number] [address] [place] Calcium.ionized adjusted to pH 7.4 (BldA) [Moles/Vol] 1.21 mmol/L Normal 1.08-1.30 [facility] Comment on above: Order Comment: Speci men Type: VENOUS BLOOD SPECIMENOrdering Facility: [facility] Address: [address] [place] [address] Performed By: #### 2 4344-4 ####[facility] LABCLIA [id number] [address] [place] Carboxyhemoglobin (BldV) [Mass fraction] 0.4 % Normal 0.0-2.0 [facility] Comment on above: Order Comment: Speci men Type: VENOUS BLOOD SPECIMENOrdering Facility: [facility] Address: [address] [place] [address] Result Comment: Carb oxyhemoglobin Reference Range for Smokers: 2.0-8.0% Performed By: #### 2 4344-4 ####[facility] LABCLIA [id number] [place] [address] [place] CO2 (BldV) [Partial pressure] 39 mm[Hg] Low 42-55 [facility] Comment on above: Order Comment: Speci men Type: VENOUS BLOOD SPECIMENOrdering Facility: [facility] Address: [address] [place] [address] Performed By: #### 2 4344-4 ####[facility] LABCLIA [id number] [place] [address] [place] CO2 [Moles/Vol] 23 mmol/L Low 25-29 [facility] Comment on above: Order Comment: Speci men Type: VENOUS BLOOD SPECIMENOrdering Facility: [facility] Address: [address] [place] [address] Performed By: #### 2 4344-4 ####[facility] LABCLIA [id number] [place] [address] [place] Glucose [Mass/Vol] 155 mg/dL High 60-105 [facility] Comment on above: Order Comment: Speci men Type: VENOUS BLOOD SPECIMENOrdering Facility: [facility] Address: [address] [place] [address] Performed By: #### 2 4344-4 ####[facility] LABCLIA [id number] [place] [address] [place] HCO3 (Bld) [Moles/Vol] 22 mmol/L Low 24-28 [facility] Comment on above: Order Comment: Speci men Type: VENOUS BLOOD SPECIMENOrdering Facility: [facility] Address: [address] Performed By: #### 2 4344-4 ####[facility] LABCLIA [id number] [place] [address] [place] Hematocrit (Bld) [Volume fraction] 36.7 % Low 39.0-51.0 [facility] Comment on above: Order Comment: Speci men Type: VENOUS BLOOD SPECIMENOrdering Facility: [facility] Address: [address] Performed By: #### 2 4344-4 ####[facility] LABCLIA [id number] [place] [address] [place] Hemoglobin (Bld) [Mass/Vol] 11.9 g/dL Low 13.0-17.0 [facility] Comment on above: Order Comment: Speci men Type: VENOUS BLOOD SPECIMENOrdering Facility: [facility] Address: [address] Performed By: #### 2 4344-4 ####[facility] LABCLIA [id number] [place] [address] [place] Lactate [Moles/Vol] 1.9 mmol/L Normal 0.5-2.2 [facility] Comment on above: Order Comment: Speci men Type: VENOUS BLOOD SPECIMENOrdering Facility: [facility] Address: [address] Performed By: #### 2 4344-4 ####[facility] LABCLIA [id number] [place] [address] [place] LITERS 2 Liters/min Normal [facility] Comment on above: Order Comment: Speci men Type: VENOUS BLOOD SPECIMENOrdering Facility: [facility] Address: [address] Performed By: #### 2 4344-4 ####[facility] LABCLIA [id number] [place] [address] [place] Methemoglobin (Bld) [Mass fraction] 1.6 % High 0.0-1.5 [facility] Comment on above: Order Comment: Speci men Type: VENOUS BLOOD SPECIMENOrdering Facility: [facility] Address: [address] Performed By: #### 2 4344-4 ####[facility] LABCLIA [id number] [place] [address] [place] O2 THERAPY NC = Nasal Cannula Normal [facility] Comment on above: Order Comment: Speci men Type: VENOUS BLOOD SPECIMENOrdering Facility: [facility] Address: [address] [place] [address] Performed By: #### 2 4344-4 ####[facility] LABCLIA [id number] [place] [address] [place] Oxygen (BldV) [Partial pressure] 104 mm[Hg] High 35-45 [facility] Comment on above: Order Comment: Speci men Type: VENOUS BLOOD SPECIMENOrdering Facility: [facility] Address: [address] [place] [address] Performed By: #### 2 4344-4 ####[facility] LABCLIA [id number] [place] [address] [place] Oxygen saturation in Venous blood 97 % High 60-85 [facility] Comment on above: Order Comment: Speci men Type: VENOUS BLOOD SPECIMENOrdering Facility: [facility] Address: [address] Performed By: #### 2 4344-4 ####[facility] LABCLIA [id number] [place] [address] [place] Oxyhemoglobin (BldV) [Mass fraction] 95 % High 60-85 [facility] Comment on above: Order Comment: Speci men Type: VENOUS BLOOD SPECIMENOrdering Facility: [facility] Address: [address] Performed By: #### 2 4344-4 ####[facility] LABCLIA [id number] [place] [address] [place] pH (BldV) 7.37 [pH] Normal 7.32-7.42 [facility] Comment on above: Order Comment: Speci men Type: VENOUS BLOOD SPECIMENOrdering Facility: [facility] Address: [address] [place] [address] Performed By: #### 2 4344-4 ####[facility] LABCLIA [id number] [place] [address] [place] Potassium [Moles/Vol] 4.1 mmol/L Normal 3.5-5.0 [facility] Comment on above: Order Comment: Speci men Type: VENOUS BLOOD SPECIMENOrdering Facility: [facility] Address: [address] [place] [address] Performed By: #### 2 4344-4 ####[facility] LABIA [id number] [place] [address] [place] Sodium [Moles/Vol] 135 mmol/L Low 136-144 [facility] Comment on above: Order Comment: Speci men Type: VENOUS BLOOD SPECIMENOrdering Facility: [facility] Address: [address] [place], [place] [address] Performed By: #### 2 4344-4 ####[facility] LABIA [id number] [place] [address] [place] LIPID PANEL, NONFASTINGon Cholesterol [Mass/Vol] 79 mg/dL Normal <200 [facility] Comment on above: Order Comment: Speci men Type: BLOOD SPECIMENOrdering Facility: [facility] Address: [address] [place] [address] Result Comment: <200 mg/dL, Desirable 200-239 mg/dL, Borderline high>239 mg/dL, High Performed By: #### 1 9123-9, 7-6, LIPNF, 61367-9, 3016-3, 2777-1, 3023-7 ####[facility] LABCLIA [id number] [place] [address] [place] HDL CHOLESTEROL, NF 15 mg/dL Low >39 [facility] Comment on above: Order Comment: Speci men Type: BLOOD SPECIMENOrdering Facility: [facility] Address: [address] [place] [address] Result Comment: 40-5 9 mg/dL, Acceptable>59 mg/dL, High: Negative risk factor for coronary heart disease<40 mg/dL, Low: Positive risk factor for coronary heart disease Performed By: #### 1 9123-9, 6, LIPNF, 46900-5, 6-3, 2776-1, 7 ####[facility] LABCLIA [id number] [address] [place] LDL CHOLESTEROL, NF 41 mg/dL Normal <100 [facility] Comment on above: Order Comment: Speci men Type: BLOOD SPECIMENOrdering Facility: [facility] Address: [address] [place] [address] Result Comment: <100 mg/dL, Optimal 100-129 mg/dL, Near optimal/above optimal 130-159 mg/dL, Borderline high 160-189 mg/dL, High>189 mg/dL, Very highSecondary prevention optimal LDL Cholesterol levels are recommended to be < 70 mg/dL Performed By: #### 1 9123-9, 2156-6, LIPNF, 58644-6, 3016-3, 2777-1, 3023-7 ####[facility] LABCLIA [id number] [place] [address] [place] LDL/HDL RATIO, NF 2.73 mg/dL High <2.54 [facility] Comment on above: Order Comment: Speci men Type: BLOOD SPECIMENOrdering Facility: [facility] Address: [address] [place] [address] Result Comment: Andres cunningham:1. National Cholesterol Education Program ATP III Guideline At-A-Glance Quick Desk Reference: National Heart, Lung, and Blood Lott. National Institutes of Health. 2001: NIH Publication No. 01-3305.2. An International Atherosclerosis Society position paper: global recommendations for the management of dyslipidemia: executive summary, Atherosclerosis. 2014: 232(2):410-413. Performed By: #### 1 9123-9, 7-6, LIPNF, 71966-0, 3016-3, 2777-1, 3023-7 ####[facility] LABCLIA [id number] [place] [address] [place] NON HDL CHOL, NF 64 mg/dL Normal <130 [facility] Comment on above: Order Comment: Speci men Type: BLOOD SPECIMENOrdering Facility: [facility] Address: [address] [place] [address] Result Comment: <130 mg/dL, Optimal 130-159 mg/dL, Near optimal/above optimal 160-189 mg/dL, Borderline high 190-219 mg/dL, High>219 mg/dL, Very highSecondary prevention optimal non HDL Cholesterol levels are recommended to be <100 mg/dL Performed By: #### 1 9123-9, 2156-6, LIPNF, 62773-2, 3016-3, 2777-1, 3023-7 ####[facility] LABCLIA [id number] [address] [place] T CHOL/HDL RATIO NF 5.27 mg/dL High <5.10 [facility] Comment on above: Order Comment: Speci men Type: BLOOD SPECIMENOrdering Facility: [facility] Address: [address] [address] Performed By: #### 1 9123-9, 2156-6, LIPNF, 40248-9, 3016-3, 2777-1, 302-7 ####[facility] LABCLIA [id number] [place] [address] [place] TRIGLYCERIDES, NF 117 mg/dL Normal <150 [facility] Comment on above: Order Comment: Speci men Type: BLOOD SPECIMENOrdering Facility: [facility] Address: [address] [place] [address] Result Comment: <150 mg/dL, Normal 150-199 mg/dL, Borderline high 200-499 mg/dL, High>499 mg/dL, Very high Performed By: #### 1 9123-9, 215-6, LIPNF, 14874-9, 3016-3, 2777-1, 302-7 ####[facility] LABCLIA [id number] [place] [address] [place] VLDL CHOLESTEROL, NF 23 mg/dL Normal <30 [facility] Comment on above: Order Comment: Speci men Type: BLOOD SPECIMENOrdering Facility: [facility] Address: [address] [place] [address] Performed By: #### 1 9123-9, 2156-6, LIPNF, 35498-7, 3016-3, 2777-1, 3027 ####[facility] LABCLIA [id number] [place] [address] [place] Magnesium SerPl-mCncon 11-29 Magnesium [Mass/Vol] 2.3 mg/dL Normal 1.7-2.3 [facility] Comment on above: Order Comment: Speci men Type: BLOOD SPECIMENOrdering Facility: [facility] Address: [address] [place] [address] Performed By: #### 1 9123-9, 2156-6, LIPNF, 11177-3, 3016-3, 2777-1, 302-7 ####[facility] LABCLIA [id number] [place] [address] [place] Phosphate SerPl-mCncon 11-29 Phosphate [Mass/Vol] 2.6 mg/dL Low 2.7-4.8 [facility] Comment on above: Order Comment: Speci men Type: BLOOD SPECIMENOrdering Facility: [facility] Address: [address] [place] [address] Performed By: #### 1 9123-9, 7-6, LIPNF, 63366-9, 3016-3, 2777-1, 3024-7 ####[facility] LABCLIA [id number] [place] [address] [place] T4 Free SerPl-mCncon 023 Free T4 [Mass/Vol] 0.6 ng/dL Low 0.9-1.7 [facility] Comment on above: Order Comment: Speci men Type: BLOOD SPECIMENOrdering Facility: [facility] Address: [address] [place] [address] Performed By: #### 1 9123-9, 6, LIPNF, 29758-7, 3016-3, 2777-1, 3024-7 ####[facility] LABCLIA [id number] [place] [address] [place] TSH SerPl-aCncon 11-29-2022 TSH Qn 0.221 m[IU]/L Low 0.270-4.20 0 [facility] Comment on above: Order Comment: Speci men Type: BLOOD SPECIMENOrdering Facility: [facility] Address: [address] [place] [address] Performed By: #### 1 9123-9, 6, LIPNF, 89532-2, 3016-3, 2777-1, 3024-7 ####[facility] LABIA [id number] [place] [address] [place] Basic metabolic 2000 panelon 11-28-2022 Anion gap [Moles/Vol] 10 mmol/L Normal 9-18 [facility] Comment on above: Order Comment: Speci men Type: BLOOD SPECIMENOrdering Facility: [facility] Address: [address] Performed By: #### 2 4321-2, 2776-10, ####[facility] LABCLIA [id number] [place] [address] [place] Calcium [Mass/Vol] 8.6 mg/dL Normal 8.5-10.2 [facility] Comment on above: Order Comment: Speci men Type: BLOOD SPECIMENOrdering Facility: [facility] Address: [address] Performed By: #### 2 4321-2, 2776-10, ####[facility] LABCLIA [id number] [place] [address] [place] Chloride [Moles/Vol] 109 mmol/L High 97-105 [facility] Comment on above: Order Comment: Speci men Type: BLOOD SPECIMENOrdering Facility: [facility] Address: [address] Performed By: #### 2 4321-2, 2776-10, ####[facility] LABCLIA [id number] [place] [address] [place] CO2 [Moles/Vol] 21 mmol/L Low 22-30 [facility] Comment on above: Order Comment: Speci men Type: BLOOD SPECIMENOrdering Facility: [facility] Address: [address] Performed By: #### 2 4321-2, 2776-10, ####[facility] LABCLIA [id number] [place] [id number] [place] Creatinine [Mass/Vol] 1.31 mg/dL High 0.73-1.22 [facility] Comment on above: Order Comment: Speci men Type: BLOOD SPECIMENOrdering Facility: [facility] Address: [address] [place] [address] Performed By: #### 2 4321-2, 2777-1, ####[facility] LABIA [id number] [place] [address] [place] ESTIMATED GLOMERULAR FILTRATION RATE 61 mL/min/1.73m??? Normal >=60 [facility] Comment on above: Order Comment: Chaz trevizo Type: BLOOD SPECIMENOrdering Facility: [facility] Address: [address] [place] [address] Result Comment: Karina mated Glomerular Filtration Rate [...] GFR. Performed By: #### 2 4321-2, 2777-, ####[facility] LABIA [id number] [place] [address] [place] Glucose [Mass/Vol] 113 mg/dL High 74-99 [facility] Comment on above: Order Comment: Chaz trevizo Type: BLOOD SPECIMENOrdering Facility: [facility] Address: [address] [place] [address] Result Comment: The [place] Diabetes Association (ADA) provides guidance for cutoff [...] Standards of Medical Care in Diabetes 2016, [place] Diabetes Association. Diabetes Care. 2016.39(Suppl 1). Performed By: #### 2 4321-2, 2776-10, ####[facility] LABCLIA [id number] [place] [id number] [place] Potassium [Moles/Vol] 4.9 mmol/L Normal 3.7-5.1 [facility] Comment on above: Order Comment: Speci men Type: BLOOD SPECIMENOrdering Facility: [facility] Address: [address] Performed By: #### 2 4321-2, 2776-10, ####[facility] LABCLIA [id number] [place] [address] [place] Sodium [Moles/Vol] 140 mmol/L Normal 136-144 [facility] Comment on above: Order Comment: Speci men Type: BLOOD SPECIMENOrdering Facility: [facility] Address: [address] [place], [place] [address] Performed By: #### 2 4321-2, 2776-10, ####[facility] LABIA [id number] [place] [id number] [place] Urea nitrogen [Mass/Vol] 38 mg/dL High 9-24 [facility] Comment on above: Order Comment: Speci men Type: BLOOD SPECIMENOrdering Facility: [facility] Address: [address] [place], [place] [address] Performed By: #### 2 4321-2, 2776-10, ####[facility] LABIA [id number] [address] [address] [place] CBC panel Auto (Bld)on 11-28 Erythrocyte distribution width (RBC) [Ratio] 17.4 % High 11.5-15.0 [facility] Comment on above: Order Comment: Speci men Type: BLOOD SPECIMENOrdering Facility: [facility] Address: [address] [place], [place] [address] Performed By: #### 5 8410-2 ####[facility] LABIA [id number] [place] [address] [place] Hematocrit (Bld) [Volume fraction] 33.3 % Low 39.0-51.0 [facility] Comment on above: Order Comment: Speci men Type: BLOOD SPECIMENOrdering Facility: [facility] Address: [address] [place] [address] Performed By: #### 5 8410-2 ####[facility]BR[facility] [id number] [place] [address] [place] Hemoglobin (Bld) [Mass/Vol] 10.8 g/dL Low 13.0-17.0 [facility] Comment on above: Order Comment: Speci men Type: BLOOD SPECIMENOrdering Facility: [facility] Address: [address] [place] [address] Performed By: #### 5 8410-2 ####[facility] [id number] [address] [place] MCH (RBC) [Entitic mass] 28.1 pg Normal 26.0-34.0 [facility] Comment on above: Order Comment: Speci men Type: BLOOD SPECIMENOrdering Facility: [facility] Address: [address] [place] [address] Performed By: #### 5 8410-2 ####[facility] [id number] [place] [address] [place] MCHC (RBC) [Mass/Vol] 32.4 g/dL Normal 30.5-36.0 [facility] Comment on above: Order Comment: Speci men Type: BLOOD SPECIMENOrdering Facility: [facility] Address: [address] [place] [address] Performed By: #### 5 8410-2 ####[facility]BR[facility] [id number] [place] [address] [place] MCV (RBC) [Entitic vol] 86.5 fL Normal 80.0-100.0 [facility] Comment on above: Order Comment: Speci men Type: BLOOD SPECIMENOrdering Facility: [facility] Address: [address] [place], [place] [address] Performed By: #### 5 8410-2 ####[facility] LABIA [id number] [place] [address] [place] Nucleated RBC (Bld) [#/Vol] 10*3/uL Normal <0.01 [facility] Comment on above: Order Comment: Speci men Type: BLOOD SPECIMENOrdering Facility: [facility] Address: [address] [place] [address] Performed By: #### 5 8410-2 ####[facility] LABIA [id number] [place] [address] [place] Platelet mean volume (Bld) [Entitic vol] 13.2 fL High 9.0-12.7 [facility] Comment on above: Order Comment: Speci men Type: BLOOD SPECIMENOrdering Facility: [facility] Address: [address] [place] [address] Performed By: #### 5 8410-2 ####[facility] LABIA [id number] [place] [address] [place] Platelets (Bld) [#/Vol] 76 10*3/uL Low 150-400 [facility] Comment on above: Order Comment: Speci men Type: BLOOD SPECIMENOrdering Facility: [facility] Address: [address] [place], [place] [address] Result Comment: Resu lts checked and verified.No clot detected. Performed By: #### 5 8410-2 ####[facility] LABCLIA [id number] [place] [address] [place] RBC (Bld) [#/Vol] 3.85 10*6/uL Low 4.20-6.00 [facility] Comment on above: Order Comment: Speci men Type: BLOOD SPECIMENOrdering Facility: [facility] Address: [address] [place], [place] [address] Performed By: #### 5 8410-2 ####[facility] LABCLIA [id number] [place] [address] [place] WBC (Bld) [#/Vol] 10.98 10*3/uL Normal 3.70-11.00 [facility] Comment on above: Order Comment: Speci men Type: BLOOD SPECIMENOrdering Facility: [facility] Address: [address] [place], [place] [address] Performed By: #### 5 8410-2 ####[facility] LABCLIA [id number] [address] [place] CONSULTon 11-28-2022 CONSULT Normal [facility] Magnesium SerPl-mCncon 11-28 Magnesium [Mass/Vol] 2.1 mg/dL Normal 1.7-2.3 [facility] Comment on above: Order Comment: Speci men Type: BLOOD SPECIMENOrdering Facility: [facility] Address: [address] [place] [address] Performed By: #### 2 4321-2, 2776-, ####[facility] LABCLIA [id number] [place] [address] [place] Phosphate SerPl-mCncon 11-28 Phosphate [Mass/Vol] 3.4 mg/dL Normal 2.7-4.8 [facility] Comment on above: Order Comment: Speci men Type: BLOOD SPECIMENOrdering Facility: [facility] Address: [address] [place] [address] Performed By: #### 2 4321-2, 277-1, ####[facility] LABCLIA [id number] [id number] [address] [place] THERAPY NTon 11-28-2022 THERAPY NT Normal [facility] Basic metabolic 2000 panelon 11-27-2022 Anion gap [Moles/Vol] 13 mmol/L Normal 9-18 [facility] Comment on above: Order Comment: Speci men Type: BLOOD SPECIMENOrdering Facility: [facility] Address: [address] [place] [address] Performed By: #### 2 4321-2 ####[facility] LABCLIA [id number] [place] [address] [place] Calcium [Mass/Vol] 8.3 mg/dL Low 8.5-10.2 [facility] Comment on above: Order Comment: Speci men Type: BLOOD SPECIMENOrdering Facility: [facility] Address: [address] [place], [place] [address] Performed By: #### 2 4321-2 ####[facility] LABCLIA [id number] [place] [address] [place] Chloride [Moles/Vol] 109 mmol/L High 97-105 [facility] Comment on above: Order Comment: Speci men Type: BLOOD SPECIMENOrdering Facility: [facility] Address: [address] [place], [place] [address] Performed By: #### 2 4321-2 ####[facility] LABCLIA [id number] [place] [address] [place] CO2 [Moles/Vol] 18 mmol/L Low 22-30 [facility] Comment on above: Order Comment: Speci men Type: BLOOD SPECIMENOrdering Facility: [facility] Address: [address] [place] [address] Performed By: #### 2 4321-2 ####[facility] LABCLIA [id number] [place] [address] [place] Creatinine [Mass/Vol] 1.52 mg/dL High 0.73-1.22 [facility] Comment on above: Order Comment: Speci men Type: BLOOD SPECIMENOrdering Facility: [facility] Address: [address] [address] Performed By: #### 2 4321-2 ####[facility] LABCLIA [id number] [place] [address] [place] ESTIMATED GLOMERULAR FILTRATION RATE 51 mL/min/1.73m??? Low >=60 [facility] Comment on above: Order Comment: Chaz men Type: BLOOD SPECIMENOrdering Facility: [facility] Address: [address] [address] Result Comment: Karina mated Glomerular Filtration Rate [...] actual GFR. Performed By: #### 2 4321-2 ####[facility] LABCLIA [id number] [place] [address] [place] Glucose [Mass/Vol] 154 mg/dL High 74-99 [facility] Comment on above: Order Comment: Chaz joseline Type: BLOOD SPECIMENOrdering Facility: [facility] Address: [address] [address] Result Comment: The [place] Diabetes Association (ADA) provides guidance for cutoff [...] Standards of Medical Care in Diabetes 2016, [place] [employer]. Diabetes Care. 2016.39(Suppl 1). Performed By: #### 2 4321-2 ####[facility] LABCLIA [id number] [place] [address] [place] Potassium [Moles/Vol] 4.6 mmol/L Normal 3.7-5.1 [facility] Comment on above: Order Comment: Speci men Type: BLOOD SPECIMENOrdering Facility: [facility] Address: [address] [place] [address] Performed By: #### 2 4321-2 ####[facility] LABCLIA [id number] [place] [address] [place] Sodium [Moles/Vol] 140 mmol/L Normal 136-144 [facility] Comment on above: Order Comment: Speci men Type: BLOOD SPECIMENOrdering Facility: [facility] Address: [address] [place] [address] Performed By: #### 2 4321-2 ####[facility] LABIA [id number] [place] [address] [place] Urea nitrogen [Mass/Vol] 43 mg/dL High 9-24 [facility] Comment on above: Order Comment: Speci men Type: BLOOD SPECIMENOrdering Facility: [facility] Address: [address] [place] [address] Performed By: #### 2 4321-2 ####[facility] LABCLIA [id number] [place] [address] [place] Anion gap [Moles/Vol] 14 mmol/L Normal 9-18 [facility] Comment on above: Order Comment: Speci men Type: BLOOD SPECIMENOrdering Facility: [facility] Address: [address] [place] [address] Performed By: #### 1 9123-9, 08343-3, 2777-1 ####[facility] LABCLIA [id number] [place] [address] [place] Calcium [Mass/Vol] 8.7 mg/dL Normal 8.5-10.2 [facility] Comment on above: Order Comment: Speci men Type: BLOOD SPECIMENOrdering Facility: [facility] Address: [place] [address] Performed By: #### 1 9123-9, 26430-6, 2776- ####[facility] LABCLIA [id number] [place] [address] [place] Chloride [Moles/Vol] 109 mmol/L High 97-105 [facility] Comment on above: Order Comment: Speci men Type: BLOOD SPECIMENOrdering Facility: [facility] Address: [address] [place], [place] [address] Performed By: #### 1 9123-9, 73890-4, 2776- ####[facility] LABCLIA [id number] [place] [address] [place] CO2 [Moles/Vol] 17 mmol/L Low 22-30 [facility] Comment on above: Order Comment: Speci men Type: BLOOD SPECIMENOrdering Facility: [facility] Address: [address] [place] [address] Performed By: #### 1 9123-9, 95442-6, 2776- ####[facility] LABCLIA [id number] [place] [address] [place] Creatinine [Mass/Vol] 1.75 mg/dL High 0.73-1.22 [facility] Comment on above: Order Comment: Speci men Type: BLOOD SPECIMENOrdering Facility: [facility] Address: [address] [place], [place] [id number] Performed By: #### 1 9123-9, 93732-1, 2776- ####[facility] LABCLIA [id number] [place] [id number] [place] ESTIMATED GLOMERULAR FILTRATION RATE 43 mL/min/1.73m??? Low >=60 [facility] Comment on above: Order Comment: Chaz trevizo Type: BLOOD SPECIMENOrdering Facility: [facility] Address: [address] [place] [address] Result Comment: Karina mated Glomerular Filtration Rate [...] actual GFR. Performed By: #### 1 9123-9, 25119-7, 277- ####[facility] LABIA [id number] [place] [address] [place] Glucose [Mass/Vol] 112 mg/dL High 74-99 [facility] Comment on above: Order Comment: Chaz trevizo Type: BLOOD SPECIMENOrdering Facility: [facility] Address: [address] [place] [address] Result Comment: The [place] Diabetes Association (ADA) provides guidance for cutoff [...] Standards of Medical Care in Diabetes 2016, [place] [employer]. Diabetes Care. 2016.39(Suppl 1). Performed By: #### 1 9123-9, 56742-9, 277- ####[facility] LABIA [id number] [place] [id number] [place] Potassium [Moles/Vol] 5.4 mmol/L High 3.7-5.1 [facility] Comment on above: Order Comment: Speci men Type: BLOOD SPECIMENOrdering Facility: [facility] Address: [address] Performed By: #### 1 9123-9, 93018-7, 2777- ####[facility] LABCLIA [id number] [place] [address] [place] Sodium [Moles/Vol] 140 mmol/L Normal 136-144 [facility] Comment on above: Order Comment: Speci men Type: BLOOD SPECIMENOrdering Facility: [facility] Address: [address] [place] [address] Performed By: #### 1 9123-9, 71160-0, 277- ####[facility] LABCLIA [id number] [place] [address] [place] Urea nitrogen [Mass/Vol] 40 mg/dL High 9-24 [facility] Comment on above: Order Comment: Speci men Type: BLOOD SPECIMENOrdering Facility: [facility] Address: [address] [place] [address] Performed By: #### 1 9123-9, 27199-0, 277- ####[facility] LABCLIA [id number] [place] [address] [place] CASE MANAGEMon 11-27-2022 CASE MANAGEM Normal [facility] CBC panel Auto (Bld)on 11-27 Erythrocyte distribution width (RBC) [Ratio] 17.2 % High 11.5-15.0 [facility] Comment on above: Order Comment: Speci men Type: BLOOD SPECIMENOrdering Facility: [facility] Address: [address] [place], [place] [address] Performed By: #### 5 8410-2 ####[facility] LABCLIA [id number] [place] [address] [place] Hematocrit (Bld) [Volume fraction] 36.2 % Low 39.0-51.0 [facility] Comment on above: Order Comment: Speci men Type: BLOOD SPECIMENOrdering Facility: [facility] Address: [address] [place] [address] Performed By: #### 5 8410-2 ####[facility] LABCLIA [id number] [place] [address] [place] Hemoglobin (Bld) [Mass/Vol] 12.0 g/dL Low 13.0-17.0 [facility] Comment on above: Order Comment: Speci men Type: BLOOD SPECIMENOrdering Facility: [facility] Address: [address] [place] [address] Performed By: #### 5 8410-2 ####[facility] LABCLIA [id number] [address] [place] MCH (RBC) [Entitic mass] 28.4 pg Normal 26.0-34.0 [facility] Comment on above: Order Comment: Speci men Type: BLOOD SPECIMENOrdering Facility: [facility] Address: [address] [place], [place] [address] Performed By: #### 5 8410-2 ####[facility] LABIA [id number] [address] [place] MCHC (RBC) [Mass/Vol] 33.1 g/dL Normal 30.5-36.0 [facility] Comment on above: Order Comment: Speci men Type: BLOOD SPECIMENOrdering Facility: [facility] Address: [address] Performed By: #### 5 8410-2 ####[facility] LABIA [id number] [address] [place] MCV (RBC) [Entitic vol] 85.8 fL Normal 80.0-100.0 [facility] Comment on above: Order Comment: Speci men Type: BLOOD SPECIMENOrdering Facility: [facility] Address: [address] [place], [place] [address] Performed By: #### 5 8410-2 ####[facility] LABCLIA [id number] [place] [address] [place] Nucleated RBC (Bld) [#/Vol] 10*3/uL Normal <0.01 [facility] Comment on above: Order Comment: Speci men Type: BLOOD SPECIMENOrdering Facility: [facility] Address: [address] [place] [address] Performed By: #### 5 8410-2 ####[facility] LABIA [id number] [place] [address] [place] Platelet mean volume (Bld) [Entitic vol] 13.7 fL High 9.0-12.7 [facility] Comment on above: Order Comment: Speci men Type: BLOOD SPECIMENOrdering Facility: [facility] Address: [address] [place] [address] Performed By: #### 5 8410-2 ####[facility] LABIA [id number] [place] [address] [place] Platelets (Bld) [#/Vol] 92 10*3/uL Low 150-400 [facility] Comment on above: Order Comment: Speci men Type: BLOOD SPECIMENOrdering Facility: [facility] Address: [address] [place] [address] Result Comment: Resu lts checked and verified.No clot detected. Performed By: #### 5 8410-2 ####[facility] LABIA [id number] [place] [address] [place] RBC (Bld) [#/Vol] 4.22 10*6/uL Normal 4.20-6.00 [facility] Comment on above: Order Comment: Speci men Type: BLOOD SPECIMENOrdering Facility: [facility] Address: [address] [place] [address] Performed By: #### 5 8410-2 ####[facility] LABCLIA [id number] [place] [address] [place] WBC (Bld) [#/Vol] 14.13 10*3/uL High 3.70-11.00 [facility] Comment on above: Order Comment: Speci men Type: BLOOD SPECIMENOrdering Facility: [facility] Address: [address] [place] [address] Performed By: #### 5 8410-2 ####[facility] LABCLIA [id number] [place] [address] [place] CONSULT PROGon 11-27-2022 CONSULT PROG Normal [facility] Gas and Carbon monoxide pane l (BldV)on 11-27-2022 BASE DEFICIT, VENOUS -5 mmol/L Low -2-0 [facility] Comment on above: Order Comment: Speci men Type: VENOUS BLOOD SPECIMENOrdering Facility: [facility] Address: [address] [place] [address] Performed By: #### 2 4344-4 ####[facility] LABIA [id number] [place] [address] [place] Body temperature 98.6 [degF] Normal [facility] Comment on above: Order Comment: Speci men Type: VENOUS BLOOD SPECIMENOrdering Facility: [facility] Address: [address] [place], [place] [address] Performed By: #### 2 4344-4 ####[facility] LABCLIA [id number] [place] [address] [place] Calcium.ionized (Bld) [Mass/Vol] 1.20 mmol/L Normal 1.08-1.30 [facility] Comment on above: Order Comment: Speci men Type: VENOUS BLOOD SPECIMENOrdering Facility: [facility] Address: [address] [place] [address] Performed By: #### 2 4344-4 ####[facility] LABCLIA [id number] [place] [address] [place] Calcium.ionized adjusted to pH 7.4 (BldA) [Moles/Vol] 1.17 mmol/L Normal 1.08-1.30 [facility] Comment on above: Order Comment: Speci men Type: VENOUS BLOOD SPECIMENOrdering Facility: [facility] Address: [address] [place] [address] Performed By: #### 2 4344-4 ####[facility] LABIA [id number] [place] [address] [place] Carboxyhemoglobin (BldV) [Mass fraction] 0.1 % Normal 0.0-2.0 [facility] Comment on above: Order Comment: Speci men Type: VENOUS BLOOD SPECIMENOrdering Facility: [facility] Address: [address] [place] [address] Result Comment: Carb oxyhemoglobin Reference Range for Smokers: 2.0-8.0% Performed By: #### 2 4344-4 ####[facility] [id number] [place] [address] [place] CO2 (BldV) [Partial pressure] 35 mm[Hg] Low 42-55 [facility] Comment on above: Order Comment: Speci men Type: VENOUS BLOOD SPECIMENOrdering Facility: [facility] Address: [address] [place] [address] Performed By: #### 2 4344-4 ####[facility] LABIA [id number] [place] [address] [place] CO2 [Moles/Vol] 20 mmol/L Low 25-29 [facility] Comment on above: Order Comment: Speci men Type: VENOUS BLOOD SPECIMENOrdering Facility: [facility] Address: [address] [place] [address] Performed By: #### 2 4344-4 ####[facility] LABIA [id number] [place] [address] [id number] [address] [place] Glucose [Mass/Vol] 159 mg/dL High 60-105 [facility] Comment on above: Order Comment: Speci men Type: VENOUS BLOOD SPECIMENOrdering Facility: [facility] Address: [address] [place] [address] Performed By: #### 2 4344-4 ####[facility] LABCLIA [id number] [place] [address] [place] HCO3 (Bld) [Moles/Vol] 19 mmol/L Low 24-28 [facility] Comment on above: Order Comment: Speci men Type: VENOUS BLOOD SPECIMENOrdering Facility: [facility] Address: [address] [place], [place] [address] Performed By: #### 2 4344-4 ####[facility] LABCLIA [id number] [place] [address] [place] Hematocrit (Bld) [Volume fraction] 36.7 % Low 39.0-51.0 [facility] Comment on above: Order Comment: Speci men Type: VENOUS BLOOD SPECIMENOrdering Facility: [facility] Address: [address] [place], [place] [address] Performed By: #### 2 4344-4 ####[facility] LABCLIA [id number] [place] [address] [place] Hemoglobin (Bld) [Mass/Vol] 11.9 g/dL Low 13.0-17.0 [facility] Comment on above: Order Comment: Speci men Type: VENOUS BLOOD SPECIMENOrdering Facility: [facility] Address: [address] Performed By: #### 2 4344-4 ####[facility] LABCLIA [id number] [place] [address] [place] Lactate [Moles/Vol] 2.0 mmol/L Normal 0.5-2.2 [facility] Comment on above: Order Comment: Speci men Type: VENOUS BLOOD SPECIMENOrdering Facility: [facility] Address: [address] [place] [address] Performed By: #### 2 4344-4 ####[facility] LABCLIA [id number] [address] [place] LITERS 5 Liters/min Normal [facility] Comment on above: Order Comment: Speci men Type: VENOUS BLOOD SPECIMENOrdering Facility: [facility] Address: [address] [place] [address] Performed By: #### 2 4344-4 ####[facility] LABCLIA [id number] [place] [address] [place] Methemoglobin (Bld) [Mass fraction] 1.7 % High 0.0-1.5 [facility] Comment on above: Order Comment: Speci men Type: VENOUS BLOOD SPECIMENOrdering Facility: [facility] Address: [address] [place] [address] Performed By: #### 2 4344-4 ####[facility] LABIA [id number] [place] [address] [place] O2 THERAPY NC = Nasal Cannula Normal [facility] Comment on above: Order Comment: Speci men Type: VENOUS BLOOD SPECIMENOrdering Facility: [facility] Address: [address] Performed By: #### 2 4344-4 ####[facility] LABCLIA [id number] [place] [address] [place] Oxygen (BldV) [Partial pressure] 71 mm[Hg] High 35-45 [facility] Comment on above: Order Comment: Speci men Type: VENOUS BLOOD SPECIMENOrdering Facility: [facility] Address: [address] Performed By: #### 2 4344-4 ####[facility] LABCLIA [id number] [place] [address] [place] Oxygen saturation in Venous blood 94 % High 60-85 [facility] Comment on above: Order Comment: Speci men Type: VENOUS BLOOD SPECIMENOrdering Facility: [facility] Address: [address] [place] [address] Performed By: #### 2 4344-4 ####[facility] LABCLIA [id number] [place] [address] [place] Oxyhemoglobin (BldV) [Mass fraction] 92 % High 60-85 [facility] Comment on above: Order Comment: Speci men Type: VENOUS BLOOD SPECIMENOrdering Facility: [facility] Address: [address] [place], [place] [address] Performed By: #### 2 4344-4 ####[facility] LABCLIA [id number] [place] [address] [place] pH (BldV) 7.36 [pH] Normal 7.32-7.42 [facility] Comment on above: Order Comment: Speci men Type: VENOUS BLOOD SPECIMENOrdering Facility: [facility] Address: [address] [place] [address] Performed By: #### 2 4344-4 ####[facility] LABCLIA [id number] [place] [address] [place] Potassium [Moles/Vol] 4.3 mmol/L Normal 3.5-5.0 [facility] Comment on above: Order Comment: Speci men Type: VENOUS BLOOD SPECIMENOrdering Facility: [facility] Address: [address] [place] [address] Performed By: #### 2 4344-4 ####[facility] LABCLIA [id number] [place] [address] [place] Sodium [Moles/Vol] 137 mmol/L Normal 136-144 [facility] Comment on above: Order Comment: Speci men Type: VENOUS BLOOD SPECIMENOrdering Facility: [facility] Address: [address] Performed By: #### 2 4344-4 ####[facility] LABCLIA [id number] [place] [address] [place] BASE DEFICIT, VENOUS -5 mmol/L Low -2-0 [facility] Comment on above: Order Comment: Speci men Type: VENOUS BLOOD SPECIMENOrdering Facility: [facility] Address: [address] Performed By: #### 2 4344-4 ####[facility] LABCLIA [id number] [place] [address] [place] Body temperature 98.6 [degF] Normal [facility] Comment on above: Order Comment: Speci men Type: VENOUS BLOOD SPECIMENOrdering Facility: [facility] Address: [address] Performed By: #### 2 4344-4 ####[facility] LABCLIA [id number] [place] [address] [place] Calcium.ionized (Bld) [Mass/Vol] 1.21 mmol/L Normal 1.08-1.30 [facility] Comment on above: Order Comment: Speci men Type: VENOUS BLOOD SPECIMENOrdering Facility: [facility] Address: [address] [place] [address] Performed By: #### 2 4344-4 ####[facility] LABCLIA [id number] [place] [address] [place] Calcium.ionized adjusted to pH 7.4 (BldA) [Moles/Vol] 1.18 mmol/L Normal 1.08-1.30 [facility] Comment on above: Order Comment: Speci men Type: VENOUS BLOOD SPECIMENOrdering Facility: [facility] Address: [address] Performed By: #### 2 4344-4 ####[facility] LABCLIA [id number] [place] [address] [place] Carboxyhemoglobin (BldV) [Mass fraction] 0.8 % Normal 0.0-2.0 [facility] Comment on above: Order Comment: Speci men Type: VENOUS BLOOD SPECIMENOrdering Facility: [facility] Address: [address] [place] [address] Result Comment: Carb oxyhemoglobin Reference Range for Smokers: 2.0-8.0% Performed By: #### 2 4344-4 ####[facility] LABCLIA [id number] [place] [address] [place] CO2 (BldV) [Partial pressure] 36 mm[Hg] Low 42-55 [facility] Comment on above: Order Comment: Speci men Type: VENOUS BLOOD SPECIMENOrdering Facility: [facility] Address: [address] [place] [address] Performed By: #### 2 4344-4 ####[facility] LABCLIA [id number] [place] [address] [place] CO2 [Moles/Vol] 21 mmol/L Low 25-29 [facility] Comment on above: Order Comment: Speci men Type: VENOUS BLOOD SPECIMENOrdering Facility: [facility] Address: [address] [place] [address] Performed By: #### 2 4344-4 ####[facility] LABCLIA [id number] [place] [address] [place] FIO2 35 % Normal [facility] Comment on above: Order Comment: Speci men Type: VENOUS BLOOD SPECIMENOrdering Facility: [facility] Address: [address] [place] [address] Performed By: #### 2 4344-4 ####[facility] LABCLIA [id number] [place] [address] [place] Glucose [Mass/Vol] 129 mg/dL High 60-105 [facility] Comment on above: Order Comment: Speci men Type: VENOUS BLOOD SPECIMENOrdering Facility: [facility] Address: [address] Performed By: #### 2 4344-4 ####[facility] LABCLIA [id number] [place] [address] [place] HCO3 (Bld) [Moles/Vol] 20 mmol/L Low 24-28 [facility] Comment on above: Order Comment: Speci men Type: VENOUS BLOOD SPECIMENOrdering Facility: [facility] Address: [address] Performed By: #### 2 4344-4 ####[facility] LABCLIA [id number] [place] [address] [place] Hematocrit (Bld) [Volume fraction] 37.1 % Low 39.0-51.0 [facility] Comment on above: Order Comment: Speci men Type: VENOUS BLOOD SPECIMENOrdering Facility: [facility] Address: [address] Performed By: #### 2 4344-4 ####[facility] LABIA [id number] [place] [address] [place] Hemoglobin (Bld) [Mass/Vol] 12.0 g/dL Low 13.0-17.0 [facility] Comment on above: Order Comment: Speci men Type: VENOUS BLOOD SPECIMENOrdering Facility: [facility] Address: [address] [place] [address] Performed By: #### 2 4344-4 ####[facility] LABIA [id number] [place] [address] [place] Lactate [Moles/Vol] 1.8 mmol/L Normal 0.5-2.2 [facility] Comment on above: Order Comment: Speci men Type: VENOUS BLOOD SPECIMENOrdering Facility: [facility] Address: [address] [place] [id number] Performed By: #### 2 4344-4 ####[facility] LABCLIA [id number] [place] [address] [place] Methemoglobin (Bld) [Mass fraction] 1.5 % Normal 0.0-1.5 [facility] Comment on above: Order Comment: Speci men Type: VENOUS BLOOD SPECIMENOrdering Facility: [facility] Address: [address] [place] [address] Performed By: #### 2 4344-4 ####[facility] LABCLIA [id number] [place] [address] [place] O2 THERAPY Hi-Flow Nasal Cannula-Heated Normal [facility] Comment on above: Order Comment: Speci men Type: VENOUS BLOOD SPECIMENOrdering Facility: [facility] Address: [address] Performed By: #### 2 4344-4 ####[facility] LABCLIA [id number] [place] [address] [place] Oxygen (BldV) [Partial pressure] 62 mm[Hg] High 35-45 [facility] Comment on above: Order Comment: Speci men Type: VENOUS BLOOD SPECIMENOrdering Facility: [facility] Address: [address] [place] [address] Performed By: #### 2 4344-4 ####[facility] LABCLIA [id number] [place] [address] [place] Oxygen saturation in Venous blood 90 % High 60-85 [facility] Comment on above: Order Comment: Speci men Type: VENOUS BLOOD SPECIMENOrdering Facility: [facility] Address: [address] [place] [address] Performed By: #### 2 4344-4 ####[facility] LABCLIA [id number] [place] [address] [place] Oxyhemoglobin (BldV) [Mass fraction] 88 % High 60-85 [facility] Comment on above: Order Comment: Speci men Type: VENOUS BLOOD SPECIMENOrdering Facility: [facility] Address: [address] [place] [address] Performed By: #### 2 4344-4 ####[facility] LABIA [id number] [place] [address] [place] pH (BldV) 7.35 [pH] Normal 7.32-7.42 [facility] Comment on above: Order Comment: Speci men Type: VENOUS BLOOD SPECIMENOrdering Facility: [facility] Address: [address] [place] [address] Performed By: #### 2 4344-4 ####[facility] LABIA [id number] [place] [address] [place] Potassium [Moles/Vol] 4.7 mmol/L Normal 3.5-5.0 [facility] Comment on above: Order Comment: Speci men Type: VENOUS BLOOD SPECIMENOrdering Facility: [facility] Address: [address] [place] [address] Performed By: #### 2 4344-4 ####[facility] LABIA [id number] [place] [address] [place] Sodium [Moles/Vol] 139 mmol/L Normal 136-144 [facility] Comment on above: Order Comment: Speci men Type: VENOUS BLOOD SPECIMENOrdering Facility: [facility] Address: [address] Performed By: #### 2 4344-4 ####[facility] LABIA [id number] [place] [address] [place] Magnesium SerPl-mCncon 11-27 Magnesium [Mass/Vol] 2.2 mg/dL Normal 1.7-2.3 [facility] Comment on above: Order Comment: Speci men Type: BLOOD SPECIMENOrdering Facility: [facility] Address: [place] [address] Performed By: #### 1 9123-9, 36146-1, 2777-1 ####[facility] LABCLIA [id number] [address] [address] [place] Phosphate SerPl-mCncon 11-27 Phosphate [Mass/Vol] 3.9 mg/dL Normal 2.7-4.8 [facility] Comment on above: Order Comment: Speci men Type: BLOOD SPECIMENOrdering Facility: [facility] Address: [place] [address] Performed By: #### 1 9123-9, 08982-5, 2777-1 ####[facility] LABIA [id number] [address] [address] [place] THERAPY NTon 11-27-2022 THERAPY NT Normal [facility] XR CHEST 1V FRONTAL PORTon 0 11-27-2022 XR CHEST 1V FRONTAL PORT Normal [facility] Bacteria Bld Culton 11-26-19 23 Bacteria identified Cx Nom (Bld) Abnormal [facility] Comment on above: Performed By: #### 6 00-7 ####[facility] LABCLIA [id number] [address] [place] Bacteria identified Cx Nom (Bld) ORGANISM ID: 1 Klebsiella (enterobacter) aerogenes Refer to specimen collected on 11/26/2022 1147 ([id number]) GRAM STAIN: Gram negative bacilli Abnormal [facility] Comment on above: Performed By: #### 6 00-7 ####[facility] LABIA [id number] [place] [id number] [place] CASE MANAGEMon 11-26-2022 CASE MANAGEM Normal [facility] CBC panel Auto (Bld)on 11-26 Erythrocyte distribution width (RBC) [Ratio] 16.9 % High 11.5-15.0 [facility] Comment on above: Order Comment: Speci men Type: BLOOD SPECIMENOrdering Facility: [facility] Address: [address] [place] [address] Performed By: #### 5 8410-2 ####[facility] LABIA [id number] [place] [address] [place] Hematocrit (Bld) [Volume fraction] 34.9 % Low 39.0-51.0 [facility] Comment on above: Order Comment: Speci men Type: BLOOD SPECIMENOrdering Facility: [facility] Address: [address] [place] [address] Performed By: #### 5 8410-2 ####[facility] LABIA [id number] [address] [place] Hemoglobin (Bld) [Mass/Vol] 11.1 g/dL Low 13.0-17.0 [facility] Comment on above: Order Comment: Speci men Type: BLOOD SPECIMENOrdering Facility: [facility] Address: [address] [place] [address] Performed By: #### 5 8410-2 ####[facility] LABIA [id number] [address] [place] MCH (RBC) [Entitic mass] 28.2 pg Normal 26.0-34.0 [facility] Comment on above: Order Comment: Speci men Type: BLOOD SPECIMENOrdering Facility: [facility] Address: [address] Performed By: #### 5 8410-2 ####[facility] LABIA [id number] [address] [place] MCHC (RBC) [Mass/Vol] 31.8 g/dL Normal 30.5-36.0 [facility] Comment on above: Order Comment: Speci men Type: BLOOD SPECIMENOrdering Facility: [facility] Address: [address] [place] [address] Performed By: #### 5 8410-2 ####[facility] LABCLIA [id number] [address] MCV (RBC) [Entitic vol] 88.8 fL Normal 80.0-100.0 [facility] Comment on above: Order Comment: Speci men Type: BLOOD SPECIMENOrdering Facility: [facility] Address: [address] [place], [place] [address] Performed By: #### 5 8410-2 ####[facility] LABIA [id number] [place] [address] [place] Nucleated RBC (Bld) [#/Vol] 10*3/uL Normal <0.01 [facility] Comment on above: Order Comment: Speci men Type: BLOOD SPECIMENOrdering Facility: [facility] Address: [address] [place], [place] [address] Performed By: #### 5 8410-2 ####[facility] LABIA [id number] [place] [address] [place] Platelet mean volume (Bld) [Entitic vol] 12.2 fL Normal 9.0-12.7 [facility] Comment on above: Order Comment: Speci men Type: BLOOD SPECIMENOrdering Facility: [facility] Address: [address] [place], [place] [address] Performed By: #### 5 8410-2 ####[facility] LABIA [id number] [place] [address] [place] Platelets (Bld) [#/Vol] 88 10*3/uL Low 150-400 [facility] Comment on above: Order Comment: Speci men Type: BLOOD SPECIMENOrdering Facility: [facility] Address: [address] [place], [place] [address] Result Comment: Resu lts checked and verified.No clot detected. Performed By: #### 5 8410-2 ####[facility] LABCLIA [id number] [place] [address] [place] RBC (Bld) [#/Vol] 3.93 10*6/uL Low 4.20-6.00 [facility] Comment on above: Order Comment: Speci men Type: BLOOD SPECIMENOrdering Facility: [facility] Address: [address] [place] [address] Performed By: #### 5 8410-2 ####[facility] LABIA [id number] [place] [address] [place] WBC (Bld) [#/Vol] 4.71 10*3/uL Normal 3.70-11.00 [facility] Comment on above: Order Comment: Speci men Type: BLOOD SPECIMENOrdering Facility: [facility] Address: [address] [place] [address] Performed By: #### 5 8410-2 ####[facility]ITAL[facility] [id number] [place] [address] [place] CONSULT PROGon 11-26-2022 CONSULT PROG Normal [facility] CRP SerPl-mCncon 11-26-2022 CRP [Mass/Vol] 17.0 mg/dL High <0.9 [facility] Comment on above: Order Comment: Speci men Type: BLOOD SPECIMENOrdering Facility: [facility] Address: [address] [place], [place] [address] Performed By: #### 2 4323-8, 29142-9, 1987- ####[facility] LABIA [id number] [place] [address] [place] Comprehensive metabolic 2000 panelon 11-26-2022 Albumin [Mass/Vol] 2.8 g/dL Low 3.9-4.9 [facility] Comment on above: Order Comment: Speci men Type: BLOOD SPECIMENOrdering Facility: [facility] Address: [address] [place], [place] [address] Performed By: #### 2 4323-8, 74412-4, 1988-02 ####[facility] LABCLIA [id number] [place] [address] [place] ALP [Catalytic activity/Vol] 95 U/L Normal 38-113 [facility] Comment on above: Order Comment: Speci men Type: BLOOD SPECIMENOrdering Facility: [facility] Address: [address] [place], [place] [address] Performed By: #### 2 432-8, 99721-8, 1988-02 ####[facility] LABCLIA [id number] [address] [place] ALT [Catalytic activity/Vol] U/L Low 10-54 [facility] Comment on above: Order Comment: Speci men Type: BLOOD SPECIMENOrdering Facility: [facility] Address: [address] [place] [address] Result Comment: Resu lt rechecked. Performed By: #### 2 4328, 75604-4, 1988-02 ####[facility] LABCLIA [id number] [place] [address] [place] Anion gap [Moles/Vol] 10 mmol/L Normal 9-18 [facility] Comment on above: Order Comment: Speci men Type: BLOOD SPECIMENOrdering Facility: [facility] Address: [address] [place] [address] Performed By: #### 2 432-8, 30019-3, 1988-02 ####[facility] LABCLIA [id number] [place] [id number] [place] AST [Catalytic activity/Vol] 10 U/L Low 14-40 [facility] Comment on above: Order Comment: Speci men Type: BLOOD SPECIMENOrdering Facility: [facility] Address: [address] [place], [place] [address] Performed By: #### 2 4323-8, 89495-2, 1988-02 ####[facility] LABCLIA [id number] [place] [address] [place] Bilirubin [Mass/Vol] 0.4 mg/dL Normal 0.2-1.3 [facility] Comment on above: Order Comment: Speci men Type: BLOOD SPECIMENOrdering Facility: [facility] Address: [address] [place] [address] Performed By: #### 2 432-8, 74157-2, 1988-02 ####[facility] LABCLIA [id number] [place] [address] [place] Calcium [Mass/Vol] 8.1 mg/dL Low 8.5-10.2 [facility] Comment on above: Order Comment: Speci men Type: BLOOD SPECIMENOrdering Facility: [facility] Address: [address] [place] [address] Performed By: #### 2 4328, 55380-1, 1988-02 ####[facility] LABIA [id number] [place] [address] [place] Chloride [Moles/Vol] 108 mmol/L High 97-105 [facility] Comment on above: Order Comment: Speci men Type: BLOOD SPECIMENOrdering Facility: [facility] Address: [address] [place], [place] [address] Performed By: #### 2 432-8, 92443-4, 1988-02 ####[facility] LABCLIA [id number] [place] [address] [place] CO2 [Moles/Vol] 20 mmol/L Low 22-30 [facility] Comment on above: Order Comment: Speci men Type: BLOOD SPECIMENOrdering Facility: [facility] Address: [address] [place] [address] Performed By: #### 2 4323-8, 54178-6, 1988-02 ####[facility] LABCLIA [id number] [place] [address] [place] Creatinine [Mass/Vol] 1.92 mg/dL High 0.73-1.22 [facility] Comment on above: Order Comment: Chaz trevizo Type: BLOOD SPECIMENOrdering Facility: [facility] Address: [address] [place] [phone] Performed By: #### 2 4323-8, 63871-0, 1988-02 ####[facility] LABCLIA [id number] [place] [address] [place] ESTIMATED GLOMERULAR FILTRATION RATE 38 mL/min/1.73m??? Low >=60 [facility] Comment on above: Order Comment: Chaz trevizo Type: BLOOD SPECIMENOrdering Facility: [facility] Address: [address] [place] [address] Result Comment: Karina mated Glomerular Filtration Rate [...] actual GFR. Performed By: #### 2 4323-8, 68713-4, 1988-02 ####[facility] LABCLIA [id number] [place] [address] [place] Glucose [Mass/Vol] 88 mg/dL Normal 74-99 [facility] Comment on above: Order Comment: Chaz trevizo Type: BLOOD SPECIMENOrdering Facility: [facility] Address: [address] [place] [address] Result Comment: The [place] Diabetes Association (ADA) provides guidance for cutoff [...] Standards of Medical Care in Diabetes 2016, [employer] [employer]. Diabetes Care. 2016.39(Suppl 1). Performed By: #### 2 4323-8, 63786-8, 1988-02 ####[facility] LABCLIA [id number] [place] [address] [place] Potassium [Moles/Vol] 4.4 mmol/L Normal 3.7-5.1 [facility] Comment on above: Order Comment: Speci men Type: BLOOD SPECIMENOrdering Facility: [facility] Address: [address] [place] [phone] Performed By: #### 2 432-8, 94871-9, 1988-02 ####[facility] LABCLIA [id number] [place] [address] [place] Protein [Mass/Vol] 5.2 g/dL Low 6.3-8.0 [facility] Comment on above: Order Comment: Speci men Type: BLOOD SPECIMENOrdering Facility: [facility] Address: [address] [place] [address] Performed By: #### 2 4328, 09479-1, 1988-02 ####[facility] LABCLIA [id number] [place] [id number] [place] Sodium [Moles/Vol] 138 mmol/L Normal 136-144 [facility] Comment on above: Order Comment: Speci men Type: BLOOD SPECIMENOrdering Facility: [facility] Address: [address] [place], [place] Performed By: #### 2 432-8, , 1988-02 ####[facility] LABCLIA [id number] [address] [address] [place] Urea nitrogen [Mass/Vol] 44 mg/dL High 9-24 [facility] Comment on above: Order Comment: Chaz trevizo Type: BLOOD SPECIMENOrdering Facility: [facility] Address: [place] [phone] Performed By: #### 2 4323-8, 32886-8, 1988- ####[facility] LABCLIA [id number] [place] [address] [place] ECG COMPLETEon 11-26-2022 ECG COMPLETE Normal [facility] HISTORY PHYSICALon HISTORY PHYSICAL Normal [facility] MEDICAL EMERon 11-26-2022 MEDICAL KALEB Normal [facility] NURSING PROGon 11-26-2022 NURSING PROG Normal [facility] NUTRITIONon 11-26-2022 NUTRITION Normal [facility] PT panel Coag (PPP)on 2022 INR Coag (PPP) [Relative time] 1.2 {INR} Normal 0.9-1.3 [facility] Comment on above: Order Comment: Chaz trevizo Type: BLOOD SPECIMENOrdering Facility: [facility] Address: [place] [phone] Result Comment: Bouchra min K Antagonist (VKA) Therapeutic Range: INR 2 to 3 (Target INR of 2.5)Note: For patients treated with VKA drugs, such as warfarin, the [employer] 2012 Guideline recommends [...] 3).Mukesh JENKINS, et al. Chest 2012, 141:7S-47SAlma PENDLETON et al. [facility] 2017, 70: 252-289 Performed By: #### 3 4528-0 ####[facility] LABCLIA [id number] [place] [address] [place] PT Coag (PPP) [Time] 12.2 s Normal 9.7-13.0 [facility] Comment on above: Order Comment: Speci men Type: BLOOD SPECIMENOrdering Facility: [facility] Address: [address] [place] [address] Performed By: #### 3 4528-0 ####[facility] LABCLIA [id number] [address] [place] Procalcitonin SerPl-mCncon 0 11-26-2022 Procalcitonin [Mass/Vol] 11.48 ng/mL High <0.09 [facility] Comment on above: Order Comment: Speci men Type: BLOOD SPECIMENOrdering Facility: [facility] Address: [address] [place] [address] Result Comment: For a guided interpretation of test results, please visit the Change in Procalcitonin Calculator, [email or web address]. Performed By: #### 2 4323-8, 92936-7, 1987- ####[facility] LABIA [id number] [address] [place] SEPSIS LACTATEon 11-26-2022 Lactate [Moles/Vol] 2.4 mmol/L High <=2.0 [facility] Comment on above: Order Comment: Speci men Type: BLOOD SPECIMENOrdering Facility: [facility] Address: [address] [place] [address] Performed By: #### S LACT ####[facility] LABCLIA [id number] [address] [place] STAPH AUREUS PCRon 3 S. aureus and MRSA panel KELLIE+probe (Nose) Normal Negative [facility] Comment on above: Order Comment: Speci men Type: SWAB OF INTERNAL NOSEOrdering Facility: [facility] Address: [address] [place] [address] Result Comment: Nega tive for Staphylococcus aureus by PCR.Negative for MRSA by PCR Performed By: #### S APCR ####[facility] LABCLIA [id number] [place] [address] [place] THERAPY NTon 11-26-2022 THERAPY NT Normal [facility] THERAPY NT Normal [facility] US KIDNEY/BLADDERon 11-26-19 23 US KIDNEY/BLADDER [facility] Urinalysis complete pnl Uron 11-26-2022 Urinalysis complete panel (U) Normal [facility] Comment on above: Order Comment: Speci men Type: URINE SPECIMENOrdering Facility: [facility] Address: [address] [place] [address] Performed By: #### 2 4356-8 ####[facility] LABCLIA [id number] [place] [address] [place] XR CHEST 1V FRONTAL PORTon 0 11-26-2022 XR CHEST 1V FRONTAL PORT Normal [facility] CASE MGT INIT ASSESon 2022 CASE MGT INIT ASSES Normal [facility] CBC panel Auto (Bld)on 11-25 Erythrocyte distribution width (RBC) [Ratio] 17.2 % High 11.5-15.0 [facility] Comment on above: Order Comment: Speci men Type: BLOOD SPECIMENOrdering Facility: [facility] Address: [address] [place], [place] [address] Performed By: #### 5 8410-2 ####[facility] LABCLIA [id number] [place] [address] [place] Hematocrit (Bld) [Volume fraction] 36.9 % Low 39.0-51.0 [facility] Comment on above: Order Comment: Speci men Type: BLOOD SPECIMENOrdering Facility: [facility] Address: [address] [place] [address] Performed By: #### 5 8410-2 ####[facility] LABCLIA [id number] [place] [address] [place] Hemoglobin (Bld) [Mass/Vol] 11.6 g/dL Low 13.0-17.0 [facility] Comment on above: Order Comment: Speci men Type: BLOOD SPECIMENOrdering Facility: [facility] Address: [address] [place] [address] Performed By: #### 5 8410-2 ####[facility] LABIA [id number] [place] [address] [place] MCH (RBC) [Entitic mass] 27.8 pg Normal 26.0-34.0 [facility] Comment on above: Order Comment: Speci men Type: BLOOD SPECIMENOrdering Facility: [facility] Address: [address] [place] [address] Performed By: #### 5 8410-2 ####[facility] [id number] [address] [place] MCHC (RBC) [Mass/Vol] 31.4 g/dL Normal 30.5-36.0 [facility] Comment on above: Order Comment: Speci men Type: BLOOD SPECIMENOrdering Facility: [facility] Address: [address] [place] [address] Performed By: #### 5 8410-2 ####[facility] [id number] [place] [address] [place] MCV (RBC) [Entitic vol] 88.3 fL Normal 80.0-100.0 [facility] Comment on above: Order Comment: Speci men Type: BLOOD SPECIMENOrdering Facility: [facility] Address: [address] [place] [address] Performed By: #### 5 8410-2 ####[facility] [id number] [place] [address] [place] Nucleated RBC (Bld) [#/Vol] 10*3/uL Normal <0.01 [facility] Comment on above: Order Comment: Speci men Type: BLOOD SPECIMENOrdering Facility: [facility] Address: [address] [place], [place] [address] Performed By: #### 5 8410-2 ####[facility] LABCLIA [id number] [place] [address] [place] Platelet mean volume (Bld) [Entitic vol] 12.0 fL Normal 9.0-12.7 [facility] Comment on above: Order Comment: Speci men Type: BLOOD SPECIMENOrdering Facility: [facility] Address: [address] [place] [address] Performed By: #### 5 8410-2 ####[facility] LABCLIA [id number] [place] [address] [place] Platelets (Bld) [#/Vol] 96 10*3/uL Low 150-400 [facility] Comment on above: Order Comment: Speci men Type: BLOOD SPECIMENOrdering Facility: [facility] Address: [address] [place], [place] [address] Result Comment: No c lot detected. Performed By: #### 5 8410-2 ####[facility] LABIA [id number] [place] [address] [place] RBC (Bld) [#/Vol] 4.18 10*6/uL Low 4.20-6.00 [facility] Comment on above: Order Comment: Speci men Type: BLOOD SPECIMENOrdering Facility: [facility] Address: [address] [place], [place] [address] Performed By: #### 5 8410-2 ####[facility] LABCLIA [id number] [place] [address] [place] WBC (Bld) [#/Vol] 5.31 10*3/uL Normal 3.70-11.00 [facility] Comment on above: Order Comment: Speci men Type: BLOOD SPECIMENOrdering Facility: [facility] Address: [address] [place], [place] [address] Performed By: #### 5 8410-2 ####[facility] LABCLIA [id number] [place] [address] [place] CONSULT PROGon 11-25-2022 CONSULT PROG Normal [facility] CONSULT PROG Normal [facility] Comprehensive metabolic 2000 panelon 11-25-2022 Albumin [Mass/Vol] 3.1 g/dL Low 3.9-4.9 [facility] Comment on above: Order Comment: Speci men Type: BLOOD SPECIMENOrdering Facility: [facility] Address: [address] [place] [address] Performed By: #### 2 4323-8 ####[facility] LABCLIA [id number] [place] [address] [place] ALP [Catalytic activity/Vol] 98 U/L Normal 38-113 [facility] Comment on above: Order Comment: Speci men Type: BLOOD SPECIMENOrdering Facility: [facility] Address: [address] [place], [place] [address] Performed By: #### 2 4323-8 ####[facility] LABCLIA [id number] [place] [address] [place] ALT [Catalytic activity/Vol] U/L Low 10-54 [facility] Comment on above: Order Comment: Speci men Type: BLOOD SPECIMENOrdering Facility: [facility] Address: [address] [place], [place] [address] Result Comment: Resu lt rechecked. Performed By: #### 2 4323-8 ####[facility] LABCLIA [id number] [place] [address] [place] Anion gap [Moles/Vol] 9 mmol/L Normal 9-18 [facility] Comment on above: Order Comment: Speci men Type: BLOOD SPECIMENOrdering Facility: [facility] Address: [address] Performed By: #### 2 4323-8 ####[facility] LABCLIA [id number] [place] [address] [place] AST [Catalytic activity/Vol] 8 U/L Low 14-40 [facility] Comment on above: Order Comment: Speci men Type: BLOOD SPECIMENOrdering Facility: [facility] Address: [address] Performed By: #### 2 4323-8 ####[facility] LABCLIA [id number] [place] [address] [place] Bilirubin [Mass/Vol] 0.4 mg/dL Normal 0.2-1.3 [facility] Comment on above: Order Comment: Speci men Type: BLOOD SPECIMENOrdering Facility: [facility] Address: [address] Performed By: #### 2 4323-8 ####[facility] LABCLIA [id number] [place] [address] [place] Calcium [Mass/Vol] 8.4 mg/dL Low 8.5-10.2 [facility] Comment on above: Order Comment: Speci men Type: BLOOD SPECIMENOrdering Facility: [facility] Address: [address] Performed By: #### 2 4323-8 ####[facility] LABCLIA [id number] [place] [address] [place] Chloride [Moles/Vol] 109 mmol/L High 97-105 [facility] Comment on above: Order Comment: Speci men Type: BLOOD SPECIMENOrdering Facility: [facility] Address: [address] Performed By: #### 2 4323-8 ####[facility] LABCLIA [id number] [place] [address] [place] CO2 [Moles/Vol] 22 mmol/L Normal 22-30 [facility] Comment on above: Order Comment: Speci men Type: BLOOD SPECIMENOrdering Facility: [facility] Address: [address] [place] [address] Performed By: #### 2 4323-8 ####[facility] LABIA [id number] [address] STATES OF [facility] Creatinine [Mass/Vol] 1.18 mg/dL Normal 0.73-1.22 [facility] Comment on above: Order Comment: Speci men Type: BLOOD SPECIMENOrdering Facility: [facility] Address: [address] [place] [address] Performed By: #### 2 4323-8 ####[facility] LABIA [id number] [address] OF [facility] ESTIMATED GLOMERULAR FILTRATION RATE 69 mL/min/1.73m??? Normal >=60 [facility] Comment on above: Order Comment: Speci men Type: BLOOD SPECIMENOrdering Facility: [facility] Address: [address] [place] [address] Result Comment: Karina mated Glomerular Filtration Rate [...] actual GFR. Performed By: #### 2 4323-8 ####[facility] LABCLIA [id number] [place] [address] [place] Glucose [Mass/Vol] 102 mg/dL High 74-99 [facility] Comment on above: Order Comment: Speci men Type: BLOOD SPECIMENOrdering Facility: [facility] Address: [address] [place] [address] Result Comment: The [place] [employer] (ADA) provides guidance for cutoff [...] Standards of Medical Care in Diabetes 2016, [place] [employer]. Diabetes Care. 2016.39(Suppl 1). Performed By: #### 2 4323-8 ####[facility]BR[facility] [id number] [place] [address] [place] Potassium [Moles/Vol] 4.8 mmol/L Normal 3.7-5.1 [facility] Comment on above: Order Comment: Speci men Type: BLOOD SPECIMENOrdering Facility: [facility] Address: [address] Performed By: #### 2 432-8 ####[facility] [id number] [place] [address] [place] Protein [Mass/Vol] 5.5 g/dL Low 6.3-8.0 [facility] Comment on above: Order Comment: Speci men Type: BLOOD SPECIMENOrdering Facility: [facility] Address: [address] Performed By: #### 2 4323-8 ####[facility] LABIA [id number] [place] [address] [place] Sodium [Moles/Vol] 140 mmol/L Normal 136-144 [facility] Comment on above: Order Comment: Speci men Type: BLOOD SPECIMENOrdering Facility: [facility] Address: [address] Performed By: #### 2 4323-8 ####[facility] LABCLIA [id number] [place] [address] [place] Urea nitrogen [Mass/Vol] 31 mg/dL High 9-24 [facility] Comment on above: Order Comment: Speci men Type: BLOOD SPECIMENOrdering Facility: [facility] Address: [address] [place] [address] Performed By: #### 2 4323-8 ####[facility] LABCLIA [id number] [place] [address] [place] THERAPY NTon 11-25-2022 THERAPY NT Normal [facility] CBC panel Auto (Bld)on 11-24 Erythrocyte distribution width (RBC) [Ratio] 17.2 % High 11.5-15.0 [facility] Comment on above: Order Comment: Speci men Type: BLOOD SPECIMENOrdering Facility: [facility] Address: [address] [place] [address] Performed By: #### 5 8410-2 ####[facility] LABCLIA [id number] [address] [place] Hematocrit (Bld) [Volume fraction] 37.8 % Low 39.0-51.0 [facility] Comment on above: Order Comment: Speci men Type: BLOOD SPECIMENOrdering Facility: [facility] Address: [address] [place], [place] [address] Performed By: #### 5 8410-2 ####[facility] LABCLIA [id number] [place] [address] [place] Hemoglobin (Bld) [Mass/Vol] 12.1 g/dL Low 13.0-17.0 [facility] Comment on above: Order Comment: Speci men Type: BLOOD SPECIMENOrdering Facility: [facility] Address: [address] [place] [address] Performed By: #### 5 8410-2 ####[facility] LABCLIA [id number] [address] [place] MCH (RBC) [Entitic mass] 28.4 pg Normal 26.0-34.0 [facility] Comment on above: Order Comment: Speci men Type: BLOOD SPECIMENOrdering Facility: [facility] Address: [address] [place] [address] Performed By: #### 5 8410-2 ####[facility] [id number] [address] STATES [facility] MCHC (RBC) [Mass/Vol] 32.0 g/dL Normal 30.5-36.0 [facility] Comment on above: Order Comment: Speci men Type: BLOOD SPECIMENOrdering Facility: [facility] Address: [address] [place] [address] Performed By: #### 5 8410-2 ####[facility] [id number] [address] [place] MCV (RBC) [Entitic vol] 88.7 fL Normal 80.0-100.0 [facility] Comment on above: Order Comment: Speci men Type: BLOOD SPECIMENOrdering Facility: [facility] Address: [address] [place] [address] Performed By: #### 5 8410-2 ####[facility] [id number] [place] [address] [place] Nucleated RBC (Bld) [#/Vol] 10*3/uL Normal <0.01 [facility] Comment on above: Order Comment: Speci men Type: BLOOD SPECIMENOrdering Facility: [facility] Address: [address] [place] [address] Performed By: #### 5 8410-2 ####[facility] [id number] [address] [place] Platelet mean volume (Bld) [Entitic vol] 12.2 fL Normal 9.0-12.7 [facility] Comment on above: Order Comment: Speci men Type: BLOOD SPECIMENOrdering Facility: [facility] Address: [address] Performed By: #### 5 8410-2 ####[facility] LABCLIA [id number] [place] [address] [place] Platelets (Bld) [#/Vol] 111 10*3/uL Low 150-400 [facility] Comment on above: Order Comment: Speci men Type: BLOOD SPECIMENOrdering Facility: [facility] Address: [address] Performed By: #### 5 8410-2 ####[facility] LABCLIA [id number] [place] [address] [place] RBC (Bld) [#/Vol] 4.26 10*6/uL Normal 4.20-6.00 [facility] Comment on above: Order Comment: Speci men Type: BLOOD SPECIMENOrdering Facility: [facility] Address: [address] Performed By: #### 5 8410-2 ####[facility] LABCLIA [id number] [place] [address] [place] WBC (Bld) [#/Vol] 4.79 10*3/uL Normal 3.70-11.00 [facility] Comment on above: Order Comment: Speci men Type: BLOOD SPECIMENOrdering Facility: [facility] Address: [address] Performed By: #### 5 8410-2 ####[facility] LABCLIA [id number] [place] [address] [place] CONSULTon 11-24-2022 CONSULT Normal [facility] CONSULT Normal [facility] CONSULT PROGon 11-24-2022 CONSULT PROG Normal [facility] metabolic 2000 panelon 11-24-2022 Albumin [Mass/Vol] 3.3 g/dL Low 3.9-4.9 [facility] Comment on above: Order Comment: Speci men Type: BLOOD SPECIMENOrdering Facility: [facility] Address: [address] [place] [address] Performed By: #### 1 9123-9, 2777-1, 83332-4 ####[facility] LABCLIA [id number] [place] [address] [place] ALP [Catalytic activity/Vol] 91 U/L Normal 38-113 [facility] Comment on above: Order Comment: Speci men Type: BLOOD SPECIMENOrdering Facility: [facility] Address: [address] [place] [address] Performed By: #### 1 9123-9, 2777-1, 35632-5 ####[facility] LABCLIA [id number] [address] [place] ALT [Catalytic activity/Vol] U/L Low 10-54 [facility] Comment on above: Order Comment: Speci men Type: BLOOD SPECIMENOrdering Facility: [facility] Address: [address] [place] [address] Result Comment: Resu lt rechecked. Performed By: #### 1 9123-9, 277-1, 75973-8 ####[facility] LABIA [id number] [place] [address] [place] [facility] Anion gap [Moles/Vol] 8 mmol/L Low 9-18 [facility] Comment on above: Order Comment: Speci men Type: BLOOD SPECIMENOrdering Facility: [facility] Address: [address] [place] [address] Performed By: #### 1 9123-9, 2777-1, 08144-9 ####[facility] LABCLIA [id number] [place] [address] [place] AST [Catalytic activity/Vol] 9 U/L Low 14-40 [facility] Comment on above: Order Comment: Speci men Type: BLOOD SPECIMENOrdering Facility: [facility] Address: [address] Performed By: #### 1 9123-9, 27704-18, 40384-5 ####[facility] LABCLIA [id number] [place] [address] [place] Bilirubin [Mass/Vol] 0.2 mg/dL Normal 0.2-1.3 [facility] Comment on above: Order Comment: Speci men Type: BLOOD SPECIMENOrdering Facility: [facility] Address: [address] [place] [address] Performed By: #### 1 9123-9, 2776-10, ####[facility] LABCLIA [id number] [place] [address] [place] Calcium [Mass/Vol] 8.3 mg/dL Low 8.5-10.2 [facility] Comment on above: Order Comment: Speci men Type: BLOOD SPECIMENOrdering Facility: [facility] Address: [address] Performed By: #### 1 9123-9, 2776-10, ####[facility] LABCLIA [id number] [place] [address] [place] Chloride [Moles/Vol] 110 mmol/L High 97-105 [facility] Comment on above: Order Comment: Speci men Type: BLOOD SPECIMENOrdering Facility: [facility] Address: [place] [address] Performed By: #### 1 9123-9, 2776-10, ####[facility] LABCLIA [id number] [place] [id number] [place] CO2 [Moles/Vol] 24 mmol/L Normal 22-30 [facility] Comment on above: Order Comment: Speci men Type: BLOOD SPECIMENOrdering Facility: [facility] Address: [address] [place] [id number] Performed By: #### 1 9123-9, 2776-10, ####[facility] LABCLIA [id number] [place] [address] [place] Creatinine [Mass/Vol] 0.94 mg/dL Normal 0.73-1.22 [facility] Comment on above: Order Comment: Speci men Type: BLOOD SPECIMENOrdering Facility: [facility] Address: [address] Performed By: #### 1 9123-9, 2776-10, ####[facility] LABCLIA [id number] [place] [address] [place] ESTIMATED GLOMERULAR FILTRATION RATE 91 mL/min/1.73m??? Normal >=60 [facility] Comment on above: Order Comment: Speci men Type: BLOOD SPECIMENOrdering Facility: [facility] Address: [address] [place] [address] Result Comment: Karina mated Glomerular Filtration Rate [...] GFR. Performed By: #### 1 9123-9, 2776-10, ####[facility] LABCLIA [id number] [place] [address] [place] Glucose [Mass/Vol] 68 mg/dL Low 74-99 [facility] Comment on above: Order Comment: Speci men Type: BLOOD SPECIMENOrdering Facility: [facility] Address: [address] Result Comment: The [place] Diabetes [employer] (ADA) provides guidance for cutoff [...] Standards of Medical Care in Diabetes 2016, [place] [employer]. Diabetes Care. 2016.39(Suppl 1). Performed By: #### 1 9123-9, 2777-, 15572-1 ####[facility] LABCLIA [id number] [place] [address] [place] Potassium [Moles/Vol] 4.1 mmol/L Normal 3.7-5.1 [facility] Comment on above: Order Comment: Speci men Type: BLOOD SPECIMENOrdering Facility: [facility] Address: [address] [place] [address] Performed By: #### 1 9123-9, 27704-18, ####[facility] LABIA [id number] [place] [address] [place] Protein [Mass/Vol] 5.7 g/dL Low 6.3-8.0 [facility] Comment on above: Order Comment: Speci men Type: BLOOD SPECIMENOrdering Facility: [facility] Address: [address] [place] [id number] Performed By: #### 1 9123-9, 27704-18, 58928-6 ####[facility] LABIA [id number] [place] [address] [place] Sodium [Moles/Vol] 142 mmol/L Normal 136-144 [facility] Comment on above: Order Comment: Speci men Type: BLOOD SPECIMENOrdering Facility: [facility] Address: [address] [place] [address] Performed By: #### 1 9123-9, 2777-1, 87648-8 ####[facility] LABCLIA [id number] [place] [address] [place] Urea nitrogen [Mass/Vol] 22 mg/dL Normal 9-24 [facility] Comment on above: Order Comment: Speci men Type: BLOOD SPECIMENOrdering Facility: [facility] Address: [address] [place] [address] Performed By: #### 1 9123-9, 2777-, 77879-2 ####[facility] LABCLIA [id number] [place] [address] [place] Magnesium SerPl-mCncon 11-24 Magnesium [Mass/Vol] 2.2 mg/dL Normal 1.7-2.3 [facility] Comment on above: Order Comment: Speci men Type: BLOOD SPECIMENOrdering Facility: [facility] Address: [address] [place] [address] Performed By: #### 1 9123-9, 2777-, 98912-4 ####[facility] LABIA [id number] [place] [address] [place] Phosphate SerPl-mCncon 11-24 Phosphate [Mass/Vol] 3.3 mg/dL Normal 2.7-4.8 [facility] Comment on above: Order Comment: Speci men Type: BLOOD SPECIMENOrdering Facility: [facility] Address: [address] [place] [address] Performed By: #### 1 9123-9, 2777-1, 54824-0 ####[facility] LABCLIA [id number] [place] [address] [place] CBC panel Auto (Bld)on 11-23 Erythrocyte distribution width (RBC) [Ratio] 16.8 % High 11.5-15.0 [facility] Comment on above: Order Comment: Speci men Type: BLOOD SPECIMENOrdering Facility: [facility] Address: [address] Performed By: #### 5 8410-2 ####[facility] LABIA [id number] [place] [address] [place] Hematocrit (Bld) [Volume fraction] 35.7 % Low 39.0-51.0 [facility] Comment on above: Order Comment: Speci men Type: BLOOD SPECIMENOrdering Facility: [facility] Address: [address] Performed By: #### 5 8410-2 ####[facility] LABIA [id number] [address] [place] Hemoglobin (Bld) [Mass/Vol] 11.3 g/dL Low 13.0-17.0 [facility] Comment on above: Order Comment: Speci men Type: BLOOD SPECIMENOrdering Facility: [facility] Address: [address] [place], [place] [address] Performed By: #### 5 8410-2 ####[facility] LABIA [id number] [place] [address] [place] MCH (RBC) [Entitic mass] 27.9 pg Normal 26.0-34.0 [facility] Comment on above: Order Comment: Speci men Type: BLOOD SPECIMENOrdering Facility: [facility] Address: [address] Performed By: #### 5 8410-2 ####[facility] LABIA [id number] [place] [address] [place] MCHC (RBC) [Mass/Vol] 31.7 g/dL Normal 30.5-36.0 [facility] Comment on above: Order Comment: Speci men Type: BLOOD SPECIMENOrdering Facility: [facility] Address: [address] [place], [place] [address] Performed By: #### 5 8410-2 ####[facility] LABIA [id number] [place] [address] [place] MCV (RBC) [Entitic vol] 88.1 fL Normal 80.0-100.0 [facility] Comment on above: Order Comment: Speci men Type: BLOOD SPECIMENOrdering Facility: [facility] Address: [address] Performed By: #### 5 8410-2 ####[facility] LABIA [id number] [place] [address] [place] Nucleated RBC (Bld) [#/Vol] 10*3/uL Normal <0.01 [facility] Comment on above: Order Comment: Speci men Type: BLOOD SPECIMENOrdering Facility: [facility] Address: [address] [place], [place] [address] Performed By: #### 5 8410-2 ####[facility] LABIA [id number] [place] [address] [place] Platelet mean volume (Bld) [Entitic vol] 12.7 fL Normal 9.0-12.7 [facility] Comment on above: Order Comment: Speci men Type: BLOOD SPECIMENOrdering Facility: [facility] Address: [address] [place] [address] Performed By: #### 5 8410-2 ####[facility] LABIA [id number] [place] [address] [place] Platelets (Bld) [#/Vol] 106 10*3/uL Low 150-400 [facility] Comment on above: Order Comment: Speci men Type: BLOOD SPECIMENOrdering Facility: [facility] Address: [address] Performed By: #### 5 8410-2 ####[facility] LABCLIA [id number] [place] [address] [place] RBC (Bld) [#/Vol] 4.05 10*6/uL Low 4.20-6.00 [facility] Comment on above: Order Comment: Speci men Type: BLOOD SPECIMENOrdering Facility: [facility] Address: [address] [place] [address] Performed By: #### 5 8410-2 ####[facility] LABCLIA [id number] [place] [address] [place] WBC (Bld) [#/Vol] 2.81 10*3/uL Low 3.70-11.00 [facility] Comment on above: Order Comment: Speci men Type: BLOOD SPECIMENOrdering Facility: [facility] Address: [address] [place] [address] Performed By: #### 5 8410-2 ####[facility] LABCLIA [id number] [place] [address] [place] Comprehensive metabolic 2000 panelon 11-23-2022 Albumin [Mass/Vol] 3.2 g/dL Low 3.9-4.9 [facility] Comment on above: Order Comment: Speci men Type: BLOOD SPECIMENOrdering Facility: [facility] Address: [address] [place] [address] Performed By: #### 1 9123-9, 2777-1, 74027-2 ####[facility] LABCLIA [id number] [place] [address] [place] ALP [Catalytic activity/Vol] 84 U/L Normal 38-113 [facility] Comment on above: Order Comment: Speci men Type: BLOOD SPECIMENOrdering Facility: [facility] Address: [address] [place] [address] Performed By: #### 1 9123-9, 2777-1, 82442-0 ####[facility] LABCLIA [id number] [address] [place] ALT [Catalytic activity/Vol] U/L Low 10-54 [facility] Comment on above: Order Comment: Speci men Type: BLOOD SPECIMENOrdering Facility: [facility] Address: [address] [place] [address] Performed By: #### 1 9123-9, 2771, 60597-3 ####[facility] LABCLIA [id number] [place] [address] [place] Anion gap [Moles/Vol] 10 mmol/L Normal 9-18 [facility] Comment on above: Order Comment: Speci men Type: BLOOD SPECIMENOrdering Facility: [facility] Address: [address] [place], [place] [address] Performed By: #### 1 9123-9, 27704-18, 47125-8 ####[facility] LABCLIA [id number] [address] [place] AST [Catalytic activity/Vol] 13 U/L Low 14-40 [facility] Comment on above: Order Comment: Speci men Type: BLOOD SPECIMENOrdering Facility: [facility] Address: [address] [place] [address] Performed By: #### 1 9123-9, 27704-18, 73993-6 ####[facility] LABCLIA [id number] [place] [address] [place] Bilirubin [Mass/Vol] 0.2 mg/dL Normal 0.2-1.3 [facility] Comment on above: Order Comment: Speci men Type: BLOOD SPECIMENOrdering Facility: [facility] Address: [address] [place] [address] Performed By: #### 1 9123-9, 27704-18, 18247-1 ####[facility] LABCLIA [id number] [place] [address] [place] Calcium [Mass/Vol] 8.3 mg/dL Low 8.5-10.2 [facility] Comment on above: Order Comment: Speci men Type: BLOOD SPECIMENOrdering Facility: [facility] Address: [address] [place], [place] [address] Performed By: #### 1 9123-9, 2776-10, ####[facility] LABCLIA [id number] [facility] [address] [place] Chloride [Moles/Vol] 112 mmol/L High 97-105 [facility] Comment on above: Order Comment: Speci men Type: BLOOD SPECIMENOrdering Facility: [facility] Address: [address] [place], [place] [address] Performed By: #### 1 9123-9, 2776-10, ####[facility] LABCLIA [id number] [place] [address] [place] CO2 [Moles/Vol] 21 mmol/L Low 22-30 [facility] Comment on above: Order Comment: Speci men Type: BLOOD SPECIMENOrdering Facility: [facility] Address: [address] [place], [place] [address] Performed By: #### 1 9123-9, 2776-10, ####[facility] LABCLIA [id number] [place] [address] [place] Creatinine [Mass/Vol] 0.84 mg/dL Normal 0.73-1.22 [facility] Comment on above: Order Comment: Speci men Type: BLOOD SPECIMENOrdering Facility: [facility] Address: [address] [place], [place] [address] Performed By: #### 1 9123-9, 2776-10, ####[facility] LABCLIA [id number] [place] [id number] [place] ESTIMATED GLOMERULAR FILTRATION RATE 97 mL/min/1.73m??? Normal >=60 [facility] Comment on above: Order Comment: Chaz trevizo Type: BLOOD SPECIMENOrdering Facility: [facility] Address: [address] [place] [address] Result Comment: Karina mated Glomerular Filtration Rate [...] GFR. Performed By: #### 1 9123-9, 2777-1, 72905-0 ####[facility] LABIA [id number] [place] [address] [place] Glucose [Mass/Vol] 102 mg/dL High 74-99 [facility] Comment on above: Order Comment: Chaz trevizo Type: BLOOD SPECIMENOrdering Facility: [facility] Address: [address] [place] [phone] Result Comment: The [place] Diabetes Association (ADA) provides guidance for cutoff [...] Standards of Medical Care in Diabetes 2016, [place] [employer]. Diabetes Care. 2016.39(Suppl 1). Performed By: #### 1 9123-9, 2777-, 68354-6 ####[facility] LABCLIA [id number] [place] [id number] [place] Potassium [Moles/Vol] 4.3 mmol/L Normal 3.7-5.1 [facility] Comment on above: Order Comment: Chaz trevizo Type: BLOOD SPECIMENOrdering Facility: [facility] Address: [address] Performed By: #### 1 9123-9, 2777-, 94449-4 ####[facility] LABCLIA [id number] [place] [address] [place] Protein [Mass/Vol] 5.3 g/dL Low 6.3-8.0 [facility] Comment on above: Order Comment: Speci men Type: BLOOD SPECIMENOrdering Facility: [facility] Address: [address] [place], [place] [address] Performed By: #### 1 9123-9, 2777, ####[facility] LABCLIA [id number] [place] [address] [place] Sodium [Moles/Vol] 143 mmol/L Normal 136-144 [facility] Comment on above: Order Comment: Speci men Type: BLOOD SPECIMENOrdering Facility: [facility] Address: [address] [place], [place] [address] Performed By: #### 1 9123-9, 27704-18, ####[facility] LABIA [id number] [place] [address] [place] Urea nitrogen [Mass/Vol] 21 mg/dL Normal 9-24 [facility] Comment on above: Order Comment: Speci men Type: BLOOD SPECIMENOrdering Facility: [facility] Address: [address] [place], [place] [address] Performed By: #### 1 9123-9, 27704-18, 97163-4 ####[facility] LABIA [id number] [place] [id number] [place] Magnesium SerPl-mCncon 11-23 Magnesium [Mass/Vol] 2.0 mg/dL Normal 1.7-2.3 [facility] Comment on above: Order Comment: Speci men Type: BLOOD SPECIMENOrdering Facility: [facility] Address: [address] Performed By: #### 1 9123-9, 2777-1, 34937-8 ####[facility] LABCLIA [id number] [place] [address] [place] Phosphate SerPl-mCncon 11-23 Phosphate [Mass/Vol] 2.8 mg/dL Normal 2.7-4.8 [facility] Comment on above: Order Comment: Speci men Type: BLOOD SPECIMENOrdering Facility: [facility] Address: [address] [place] [address] Performed By: #### 1 9123-9, 2777-1, 47878-7 ####[facility] LABCLIA [id number] [address] [place] THERAPY NTon 11-23-2022 THERAPY NT Normal [facility] CBC panel Auto (Bld)on 11-22 Erythrocyte distribution width (RBC) [Ratio] 16.4 % High 11.5-15.0 [facility] Comment on above: Order Comment: Speci men Type: BLOOD SPECIMENOrdering Facility: [facility] Address: [address] [place], [place] [address] Performed By: #### 5 8410-2 ####[facility] LABCLIA [id number] [place] [address] [place] Hematocrit (Bld) [Volume fraction] 36.4 % Low 39.0-51.0 [facility] Comment on above: Order Comment: Speci men Type: BLOOD SPECIMENOrdering Facility: [facility] Address: [address] [place], [place] [address] Performed By: #### 5 8410-2 ####[facility] LABCLIA [id number] [place] [address] [place] Hemoglobin (Bld) [Mass/Vol] 11.6 g/dL Low 13.0-17.0 [facility] Comment on above: Order Comment: Speci men Type: BLOOD SPECIMENOrdering Facility: [facility] Address: [address] Performed By: #### 5 8410-2 ####[facility] LABIA [id number] [address] [place] MCH (RBC) [Entitic mass] 28.2 pg Normal 26.0-34.0 [facility] Comment on above: Order Comment: Speci men Type: BLOOD SPECIMENOrdering Facility: [facility] Address: [address] Performed By: #### 5 8410-2 ####[facility] LABIA [id number] [address] [place] MCHC (RBC) [Mass/Vol] 31.9 g/dL Normal 30.5-36.0 [facility] Comment on above: Order Comment: Speci men Type: BLOOD SPECIMENOrdering Facility: [facility] Address: [address] Performed By: #### 5 8410-2 ####[facility] LABIA [id number] [address] [place] MCV (RBC) [Entitic vol] 88.6 fL Normal 80.0-100.0 [facility] Comment on above: Order Comment: Speci men Type: BLOOD SPECIMENOrdering Facility: [facility] Address: [address] Performed By: #### 5 8410-2 ####[facility]IA [id number] [address] [place] Nucleated RBC (Bld) [#/Vol] 10*3/uL Normal <0.01 [facility] Comment on above: Order Comment: Speci men Type: BLOOD SPECIMENOrdering Facility: [facility] Address: [address] Performed By: #### 5 8410-2 ####[facility] LABCLIA [id number] [place] [address] [place] Platelet mean volume (Bld) [Entitic vol] 12.5 fL Normal 9.0-12.7 [facility] Comment on above: Order Comment: Speci men Type: BLOOD SPECIMENOrdering Facility: [facility] Address: [address] [place], [place] [address] Performed By: #### 5 8410-2 ####[facility] LABIA [id number] [place] [address] [place] Platelets (Bld) [#/Vol] 115 10*3/uL Low 150-400 [facility] Comment on above: Order Comment: Speci men Type: BLOOD SPECIMENOrdering Facility: [facility] Address: [address] [place], [place] [address] Performed By: #### 5 8410-2 ####[facility] LABCLIA [id number] [place] [address] [place] RBC (Bld) [#/Vol] 4.11 10*6/uL Low 4.20-6.00 [facility] Comment on above: Order Comment: Speci men Type: BLOOD SPECIMENOrdering Facility: [facility] Address: [address] [place] [address] Performed By: #### 5 8410-2 ####[facility] LABCLIA [id number] [place] [address] [place] WBC (Bld) [#/Vol] 2.29 10*3/uL Low 3.70-11.00 [facility] Comment on above: Order Comment: Speci men Type: BLOOD SPECIMENOrdering Facility: [facility] Address: [address] [place], [place] [address] Performed By: #### 5 8410-2 ####[facility] LABCLIA [id number] [address] [place] CK SerPl-cCncon 11-22-2022 CK [Catalytic activity/Vol] 27 U/L Low 51-298 [facility] Comment on above: Order Comment: Speci men Type: BLOOD SPECIMENOrdering Facility: [facility] Address: [address] [place] [address] Performed By: #### 1 9123-9, 66663-4, 6, 2776- ####[facility] LABCLIA [id number] [place] [address] [place] Comprehensive metabolic 2000 panelon 11-22-2022 Albumin [Mass/Vol] 3.4 g/dL Low 3.9-4.9 [facility] Comment on above: Order Comment: Speci men Type: BLOOD SPECIMENOrdering Facility: [facility] Address: [address] [place] [address] Performed By: #### 1 9123-9, 46990-6, 2157-03, 2776- ####[facility] LABCLIA [id number] [address] [place] ALP [Catalytic activity/Vol] 79 U/L Normal 38-113 [facility] Comment on above: Order Comment: Speci men Type: BLOOD SPECIMENOrdering Facility: [facility] Address: [address] [place], [place] [address] Performed By: #### 1 9123-9, 02365-5, 2157-03, 2776- ####[facility] LABIA [id number] [address] [place] ALT [Catalytic activity/Vol] U/L Low 10-54 [facility] Comment on above: Order Comment: Speci men Type: BLOOD SPECIMENOrdering Facility: [facility] Address: [address] [place] [address] Result Comment: Resu lt rechecked. Performed By: #### 1 9123-9, 05929-6, 2157-03, 2776-10 ####[facility] LABCLIA [id number] [place] [address] [place] Anion gap [Moles/Vol] 10 mmol/L Normal 9-18 [facility] Comment on above: Order Comment: Speci men Type: BLOOD SPECIMENOrdering Facility: [facility] Address: [address] [place], [place] [address] Performed By: #### 1 9123-9, 89388-8, 2157-03, 2776-10 ####[facility] LABCLIA [id number] [place] [address] [place] AST [Catalytic activity/Vol] 11 U/L Low 14-40 [facility] Comment on above: Order Comment: Speci men Type: BLOOD SPECIMENOrdering Facility: [facility] Address: [address] [place], [place] [address] Performed By: #### 1 9123-9, 22087-8, 2157-03, 2776-10 ####[facility] LABCLIA [id number] [place] [address] [place] Bilirubin [Mass/Vol] mg/dL Low 0.2-1.3 [facility] Comment on above: Order Comment: Speci men Type: BLOOD SPECIMENOrdering Facility: [facility] Address: [address] [place], [place] [address] Performed By: #### 1 9123-9, 72961-9, 2157-03, 2776-10 ####[facility] LABCLIA [id number] [place] [address] [place] Calcium [Mass/Vol] 8.7 mg/dL Normal 8.5-10.2 [facility] Comment on above: Order Comment: Speci men Type: BLOOD SPECIMENOrdering Facility: [facility] Address: [address] [place], [place] [address] Performed By: #### 1 9123-9, 89021-5, 6, 2776- ####[facility] LABCLIA [id number] [place] [address] [place] Chloride [Moles/Vol] 109 mmol/L High 97-105 [facility] Comment on above: Order Comment: Speci men Type: BLOOD SPECIMENOrdering Facility: [facility] Address: [address] [place] [address] Performed By: #### 1 9123-9, 11199-2, 6, 2776- ####[facility] LABCLIA [id number] [place] [address] [place] CO2 [Moles/Vol] 23 mmol/L Normal 22-30 [facility] Comment on above: Order Comment: Speci men Type: BLOOD SPECIMENOrdering Facility: [facility] Address: [address] [place] [address] Performed By: #### 1 9123-9, 70914-9, 2157-03, 2776-10 ####[facility] LABCLIA [id number] [place] [address] [place] Creatinine [Mass/Vol] 0.95 mg/dL Normal 0.73-1.22 [facility] Comment on above: Order Comment: Speci men Type: BLOOD SPECIMENOrdering Facility: [facility] Address: [address] [place] [address] Performed By: #### 1 9123-9, 07357-2, 2157-03, 2776- ####[facility] LABCLIA [id number] [place] [address] [place] ESTIMATED GLOMERULAR FILTRATION RATE 89 mL/min/1.73m??? Normal >=60 [facility] Comment on above: Order Comment: Speci men Type: BLOOD SPECIMENOrdering Facility: [facility] Address: [address] [place] [address] Result Comment: Karina mated Glomerular Filtration Rate [...] actual GFR. Performed By: #### 1 9123-9, 29111-9, 2157-03, 2776-10 ####[facility] LABCLIA [id number] [place] [address] [place] Glucose [Mass/Vol] 101 mg/dL High 74-99 [facility] Comment on above: Order Comment: Chaz trevizo Type: BLOOD SPECIMENOrdering Facility: [facility] Address: [address] [phone] Result Comment: The [place] [employer] (ADA) provides guidance for cutoff [...] Standards of Medical Care in Diabetes 2016, [place] [employer]. Diabetes Care. 2016.39(Suppl 1). Performed By: #### 1 9123-9, 56106-4, 2157-03, 2776-10 ####[facility] LABIA [id number] [place] [address] [place] Potassium [Moles/Vol] 3.9 mmol/L Normal 3.7-5.1 [facility] Comment on above: Order Comment: Chaz trevizo Type: BLOOD SPECIMENOrdering Facility: [facility] Address: [address] [place] [address] Performed By: #### 1 9123-9, 82998-5, 6, 2776- ####[facility] LABCLIA [id number] [place] [id number] [place] Protein [Mass/Vol] 5.4 g/dL Low 6.3-8.0 [facility] Comment on above: Order Comment: Speci men Type: BLOOD SPECIMENOrdering Facility: [facility] Address: [address] [place] [address] Performed By: #### 1 9123-9, 18756-3, 2157-03, 2776-10 ####[facility] LABIA [id number] [place] [address] [place] Sodium [Moles/Vol] 142 mmol/L Normal 136-144 [facility] Comment on above: Order Comment: Speci men Type: BLOOD SPECIMENOrdering Facility: [facility] Address: [address] [place] [address] Performed By: #### 1 9123-9, 40116-4, 2157-03, 2776-10 ####[facility] LABIA [id number] [place] [address] [place] Urea nitrogen [Mass/Vol] 19 mg/dL Normal 9-24 [facility] Comment on above: Order Comment: Speci men Type: BLOOD SPECIMENOrdering Facility: [facility] Address: [address] [place] [address] Performed By: #### 1 9123-9, 00321-6, 2157-03, 2776-10 ####[facility] LABIA [id number] [place] [id number] [place] Magnesium SerPl-mCncon 11-22 Magnesium [Mass/Vol] 2.2 mg/dL Normal 1.7-2.3 [facility] Comment on above: Order Comment: Speci men Type: BLOOD SPECIMENOrdering Facility: [facility] Address: [address] [place], [place] [phone] Performed By: #### 1 9123-9, 40199-7, 2157-6, 2777-1 ####[facility] LABCLIA [id number] [place] [address] [place] PT panel Coag (PPP)on 2022 INR Coag (PPP) [Relative time] 1.0 {INR} Normal 0.9-1.3 [facility] Comment on above: Order Comment: Speci men Type: BLOOD SPECIMENOrdering Facility: [facility] Address: [address] [address] Result Comment: Bouchra min K Antagonist (VKA) Therapeutic Range: INR 2 to 3 (Target INR of 2.5)Note: For patients treated with VKA drugs, such as warfarin, the [place] [employer] 2012 Guideline recommends [...] al. Chest 2012, 141:7S-47SNishimura RA, et al. [facility] 2017, 70: 252-289 Performed By: #### 3 4528-0 ####[facility] LABCLIA [id number] [place] [id number] [place] PT Coag (PPP) [Time] 10.1 s Normal 9.7-13.0 [facility] Comment on above: Order Comment: Speci men Type: BLOOD SPECIMENOrdering Facility: [facility] Address: [address] [address] Performed By: #### 3 4528-0 ####[facility] LABCLIA [id number] [address] Phosphate [facility]on 11-22 Phosphate [Mass/Vol] 3.5 mg/dL Normal 2.7-4.8 [facility] Comment on above: Order Comment: Speci men Type: BLOOD SPECIMENOrdering Facility: [facility] Address: [address] [place] [address] Performed By: #### 1 9123-9, 64023-1, 2157-6, 2777-1 ####[facility] [id number] [address] OF [facility] THERAPY NTon 11-22-2022 THERAPY NT Normal [facility] ALLIED HEALTHon 11-21-2022 ALLIED HEALTH Normal [facility] ALLIED HEALTH Normal [facility] CONSULTon 11-21-2022 CONSULT Normal [facility] CONSULT PROGon 11-21-2022 CONSULT PROG Normal [facility] NUTRITIONon 11-21-2022 NUTRITION Normal [facility] THERAPY NTon 11-21-2022 THERAPY NT Normal [facility] 25(OH)D3 [facility] 2022 25-hydroxyvitamin D3 [Mass/Vol] 15.0 ng/mL Low 31.0-80.0 [facility] Comment on above: Order Comment: Speci men Type: BLOOD SPECIMENOrdering Facility: [facility] Address: [address] [place], [place] [address] Result Comment: Clas sification of 25 [place] Vitamin D status:Deficiency/Insufficiency: < or = 30 ng/ml.Sufficiency/Optimal Levels: 31-80 ng/mLToxicity: > 100 ng/mL.Test performed by chemiluminescent immunoassay. Performed By: #### 1 989-3 ####[facility] LABIA [id number] [address] [place] CBC W Auto Differential pane l (Bld)on 11-20-2022 Basophils (Bld) [#/Vol] 10*3/uL Normal <0.11 [facility] Comment on above: Order Comment: Speci men Type: BLOOD SPECIMENOrdering Facility: [facility] Address: [address] [place], [place] [address] Performed By: #### 5 8410-2, 13670-3, 76639-2 ####[facility] LABCLIA [id number] [facility] [place] [address] [place] Basophils/100 WBC (Bld) 0.2 % Normal [facility] Comment on above: Order Comment: Speci men Type: BLOOD SPECIMENOrdering Facility: [facility] Address: [address] [place], [place] [address] Performed By: #### 5 8410-2, 58972-2, 66828-1 ####[facility] LABCLIA [id number] [place] [address] [place] Eosinophils (Bld) [#/Vol] 0.08 10*3/uL Normal <0.46 [facility] Comment on above: Order Comment: Speci men Type: BLOOD SPECIMENOrdering Facility: [facility] Address: [address] [place], [place] [address] Performed By: #### 5 8410-2, 83760-8, 14049-3 ####[facility] LABCLIA [id number] [place] [address] [place] Eosinophils/100 WBC (Bld) 1.8 % Normal [facility] Comment on above: Order Comment: Speci men Type: BLOOD SPECIMENOrdering Facility: [facility] Address: [address] [place], [place] [address] Performed By: #### 5 8410-2, 52813-4, 82153-1 ####[facility] LABCLIA [id number] [facility] [place] [address] [place] Immature granulocytes (Bld) [#/Vol] 0.03 10*3/uL Normal <0.10 [facility] Comment on above: Order Comment: Speci men Type: BLOOD SPECIMENOrdering Facility: [facility] Address: [address] [place], [place] [address] Performed By: #### 5 8410-2, 43982-7, 87577-1 ####[facility] LABCLIA [id number] [place] [address] [place] Immature granulocytes/100 WBC (Bld) 0.7 % Normal [facility] Comment on above: Order Comment: Speci men Type: BLOOD SPECIMENOrdering Facility: [facility] Address: [address] [place], [place] [address] Performed By: #### 5 8410-2, 27926-3, 34431-2 ####[facility] LABCLIA [id number] [place] [address] [place] Lymphocytes (Bld) [#/Vol] 0.74 10*3/uL Low 1.00-4.00 [facility] Comment on above: Order Comment: Speci men Type: BLOOD SPECIMENOrdering Facility: [facility] Address: [address] [place], [place] [address] Performed By: #### 5 8410-2, 32043-9, 24658-2 ####[facility] LABCLIA [id number] [place] [address] [place] Lymphocytes/100 WBC (Bld) 16.4 % Normal [facility] Comment on above: Order Comment: Speci men Type: BLOOD SPECIMENOrdering Facility: [facility] Address: [address] [place], [place] [address] Performed By: #### 5 8410-2, 28522-1, 84082-0 ####[facility] LABCLIA [id number] [place] [address] [place] Monocytes (Bld) [#/Vol] 0.53 10*3/uL Normal <0.87 [facility] Comment on above: Order Comment: Speci men Type: BLOOD SPECIMENOrdering Facility: [facility] Address: [address] [place], [place] [address] Performed By: #### 5 8410-2, 75990-3, 79818-6 ####[facility] LABCLIA [id number] [place] [address] [place] Monocytes/100 WBC (Bld) 11.8 % Normal [facility] Comment on above: Order Comment: Speci men Type: BLOOD SPECIMENOrdering Facility: [facility] Address: [address] [place] [address] Performed By: #### 5 8410-2, 81523-4, 75589-4 ####[facility] LABIA [id number] [place] [address] [place] Neutrophils (Bld) [#/Vol] 3.11 10*3/uL Normal 1.45-7.50 [facility] Comment on above: Order Comment: Speci men Type: BLOOD SPECIMENOrdering Facility: [facility] Address: [address] [place], [place] [address] Performed By: #### 5 8410-2, 30024-0, 67840-7 ####[facility] LABCLIA [id number] [place] [address] [place] Neutrophils/100 WBC (Bld) 69.1 % Normal [facility] Comment on above: Order Comment: Speci men Type: BLOOD SPECIMENOrdering Facility: [facility] Address: [address] [place], [place] [address] Performed By: #### 5 8410-2, 48355-0, 62813-0 ####[facility] LABIA [id number] [place] [id number] [place] CBC panel Auto (Bld)on 11-20 Erythrocyte distribution width (RBC) [Ratio] 15.9 % High 11.5-15.0 [facility] Comment on above: Order Comment: Speci men Type: BLOOD SPECIMENOrdering Facility: [facility] Address: [address] [place] [address] Performed By: #### 5 8410-2, 90082-4, 45960-2 ####[facility] LABCLIA [id number] [place] [address] [place] Hematocrit (Bld) [Volume fraction] 39.8 % Normal 39.0-51.0 [facility] Comment on above: Order Comment: Speci men Type: BLOOD SPECIMENOrdering Facility: [facility] Address: [address] [place], [place] [address] Performed By: #### 5 8410-2, 23947-8, 06853-6 ####[facility] LABIA [id number] [place] [address] [place] Hemoglobin (Bld) [Mass/Vol] 12.5 g/dL Low 13.0-17.0 [facility] Comment on above: Order Comment: Speci men Type: BLOOD SPECIMENOrdering Facility: [facility] Address: [address] [place], [place] [address] Performed By: #### 5 8410-2, 11212-3, 52964-6 ####[facility] LABIA [id number] [place] [address] [place] MCH (RBC) [Entitic mass] 27.9 pg Normal 26.0-34.0 [facility] Comment on above: Order Comment: Speci men Type: BLOOD SPECIMENOrdering Facility: [facility] Address: [address] [place] [address] Performed By: #### 5 8410-2, 22381-6, 34122-6 ####[facility] LABIA [id number] [address] [place] MCHC (RBC) [Mass/Vol] 31.4 g/dL Normal 30.5-36.0 [facility] Comment on above: Order Comment: Speci men Type: BLOOD SPECIMENOrdering Facility: [facility] Address: [address] [place] [address] Performed By: #### 5 8410-2, 59207-6, 53870-8 ####[facility] LABCLIA [id number] [place] [address] [place] MCV (RBC) [Entitic vol] 88.8 fL Normal 80.0-100.0 [facility] Comment on above: Order Comment: Speci men Type: BLOOD SPECIMENOrdering Facility: [facility] Address: [address] [place] [address] Performed By: #### 5 8410-2, 42797-9, 94747-5 ####[facility] LABCLIA [id number] [place] [address] [place] Nucleated RBC (Bld) [#/Vol] 10*3/uL Normal <0.01 [facility] Comment on above: Order Comment: Speci men Type: BLOOD SPECIMENOrdering Facility: [facility] Address: [address] [place] [address] Performed By: #### 5 8410-2, 49999-4, 40582-9 ####[facility] LABIA [id number] [place] [address] [place] Platelet mean volume (Bld) [Entitic vol] 11.8 fL Normal 9.0-12.7 [facility] Comment on above: Order Comment: Speci men Type: BLOOD SPECIMENOrdering Facility: [facility] Address: [address] [place] [address] Performed By: #### 5 8410-2, 15333-3, 02214-0 ####[facility] LABCLIA [id number] [place] [address] [place] Platelets (Bld) [#/Vol] 138 10*3/uL Low 150-400 [facility] Comment on above: Order Comment: Speci men Type: BLOOD SPECIMENOrdering Facility: [facility] Address: [address] [place], [place] [address] Result Comment: No c lot detected.Results checked and verified. Performed By: #### 5 8410-2, 67393-3, 72906-0 ####[facility] LABCLIA [id number] [place] [address] [place] RBC (Bld) [#/Vol] 4.48 10*6/uL Normal 4.20-6.00 [facility] Comment on above: Order Comment: Speci men Type: BLOOD SPECIMENOrdering Facility: [facility] Address: [address] [place] [address] Performed By: #### 5 8410-2, 01205-7, 76923-8 ####[facility] LABCLIA [id number] [place] [address] [place] WBC (Bld) [#/Vol] 4.53 10*3/uL Normal 3.70-11.00 [facility] Comment on above: Order Comment: Speci men Type: BLOOD SPECIMENOrdering Facility: [facility] Address: [address] [place] [address] Performed By: #### 5 8410-2, 60815-8, 40955-3 ####[facility] LABIA [id number] [address] [place] CONSULTon 11-20-2022 CONSULT Normal [facility] Calcium.ionized [Moles/Vol]o n 11-20-2022 Calcium.ionized (Bld) [Mass/Vol] 1.27 mmol/L Normal 1.08-1.30 [facility] Comment on above: Order Comment: Speci men Type: BLOOD SPECIMENOrdering Facility: [facility] Address: [address] [place] [address] Performed By: #### 1 995-0 ####[facility] LABCLIA [id number] [address] [place] Calcium.ionized adjusted to pH 7.4 (Bld) [Moles/Vol] 1.23 mmol/L Normal 1.08-1.30 [facility] Comment on above: Order Comment: Speci men Type: BLOOD SPECIMENOrdering Facility: [facility] Address: [address] [place] [address] Performed By: #### 1 995-0 ####[facility] LABIA [id number] [place] [address] [place] [facility] Comprehensive metabolic 2000 panelon 11-20-2022 Albumin [Mass/Vol] 4.0 g/dL Normal 3.9-4.9 [facility] Comment on above: Order Comment: Speci men Type: BLOOD SPECIMENOrdering Facility: [facility] Address: [address] [place] [address] Performed By: #### 3 3959-8, , ####[facility] LABIA [id number] [address] [place] ALP [Catalytic activity/Vol] 90 U/L Normal 38-113 [facility] Comment on above: Order Comment: Speci men Type: BLOOD SPECIMENOrdering Facility: [facility] Address: [address] [place], [place] [address] Performed By: #### 3 3959-8, , 49493-1 ####[facility] LABIA [id number] [address] [place] ALT [Catalytic activity/Vol] 7 U/L Low 10-54 [facility] Comment on above: Order Comment: Speci men Type: BLOOD SPECIMENOrdering Facility: [facility] Address: [address] [place], [place] [address] Performed By: #### 3 3959-8, 47201-8, 58133-1 ####[facility]IA [id number] [place] [address] [place] Anion gap [Moles/Vol] 12 mmol/L Normal 9-18 [facility] Comment on above: Order Comment: Speci men Type: BLOOD SPECIMENOrdering Facility: [facility] Address: [address] [place] [address] Performed By: #### 3 3959-8, , ####[facility] LABCLIA [id number] [place] [address] [place] AST [Catalytic activity/Vol] 11 U/L Low 14-40 [facility] Comment on above: Order Comment: Speci men Type: BLOOD SPECIMENOrdering Facility: [facility] Address: [address] [place], [place] [id number] Performed By: #### 3 3959-8, , ####[facility] LABCLIA [id number] [place] [address] [place] Bilirubin [Mass/Vol] 0.2 mg/dL Normal 0.2-1.3 [facility] Comment on above: Order Comment: Speci men Type: BLOOD SPECIMENOrdering Facility: [facility] Address: [address] [place] [address] Performed By: #### 3 3959-8, , ####[facility] LABCLIA [id number] [place] [address] [place] Calcium [Mass/Vol] 8.9 mg/dL Normal 8.5-10.2 [facility] Comment on above: Order Comment: Speci men Type: BLOOD SPECIMENOrdering Facility: [facility] Address: [address] [place], [place] [address] Performed By: #### 3 3959-8, , ####[facility] LABCLIA [id number] [place] [address] [place] Chloride [Moles/Vol] 110 mmol/L High 97-105 [facility] Comment on above: Order Comment: Speci men Type: BLOOD SPECIMENOrdering Facility: [facility] Address: [address] [place] [address] Performed By: #### 3 3959-8, , ####[facility] LABCLIA [id number] [place] [address] [place] CO2 [Moles/Vol] 20 mmol/L Low 22-30 [facility] Comment on above: Order Comment: Speci men Type: BLOOD SPECIMENOrdering Facility: [facility] Address: [address] [place] [address] Performed By: #### 3 3959-8, , ####[facility] LABCLIA [id number] [place] [address] [place] Creatinine [Mass/Vol] 0.95 mg/dL Normal 0.73-1.22 [facility] Comment on above: Order Comment: Speci men Type: BLOOD SPECIMENOrdering Facility: [facility] Address: [address] [place] [address] Performed By: #### 3 3959-8, , ####[facility] LABCLIA [id number] [place] [address] [place] ESTIMATED GLOMERULAR FILTRATION RATE 89 mL/min/1.73m??? Normal >=60 [facility] Comment on above: Order Comment: Speci men Type: BLOOD SPECIMENOrdering Facility: [facility] Address: [address] [place] [address] Result Comment: Karina mated Glomerular Filtration Rate [...] GFR. Performed By: #### 3 3959-8, , ####[facility] LABCLIA [id number] [place] [id number] [place] Glucose [Mass/Vol] 74 mg/dL Normal 74-99 [facility] Comment on above: Order Comment: Speci men Type: BLOOD SPECIMENOrdering Facility: [facility] Address: [address] [place] [address] Result Comment: The [place] Diabetes Association (ADA) provides guidance for cutoff [...] Standards of Medical Care in Diabetes 2016, [place] Diabetes Association. Diabetes Care. 2016.39(Suppl 1). Performed By: #### 3 3959-8, , ####[facility] LABCLIA [id number] [place] [address] [place] Potassium [Moles/Vol] 4.2 mmol/L Normal 3.7-5.1 [facility] Comment on above: Order Comment: Speci men Type: BLOOD SPECIMENOrdering Facility: [facility] Address: [address] [id number] Performed By: #### 3 3959-8, , ####[facility] LABIA [id number] [place] [address] [place] Protein [Mass/Vol] 6.2 g/dL Low 6.3-8.0 [facility] Comment on above: Order Comment: Speci men Type: BLOOD SPECIMENOrdering Facility: [facility] Address: [address] [place] [address] Performed By: #### 3 3959-8, , ####[facility] LABCLIA [id number] [place] [address] [place] Sodium [Moles/Vol] 142 mmol/L Normal 136-144 [facility] Comment on above: Order Comment: Speci men Type: BLOOD SPECIMENOrdering Facility: [facility] Address: [address] [id number] Performed By: #### 3 3959-8, , ####[facility] LABCLIA [id number] [place] [address] [place] Urea nitrogen [Mass/Vol] 26 mg/dL High 9-24 [facility] Comment on above: Order Comment: Speci men Type: BLOOD SPECIMENOrdering Facility: [facility] Address: [address] [place], [place] [phone] Performed By: #### 3 3959-8, , ####[facility] LABCLIA [id number] [place] [address] [place] [id number] 11-20-2022 ECG01 Normal [facility] ED PROV NOTEon 11-20-2022 ED PROV NOTE Normal [facility] ED PROV NOTE Normal [facility] HISTORY PHYSICALon HISTORY PHYSICAL Normal [facility] LIPID PANEL, NONFASTINGon Cholesterol [Mass/Vol] 135 mg/dL Normal <200 [facility] Comment on above: Order Comment: Speci men Type: BLOOD SPECIMENOrdering Facility: [facility] Address: [address] [place], [place] [phone] Result Comment: <200 mg/dL, Desirable 200-239 mg/dL, Borderline high>239 mg/dL, High Performed By: #### L IPNF ####[facility] LABCLIA [id number] [address] HDL CHOLESTEROL, NF 35 mg/dL Low >39 [facility] Comment on above: Order Comment: Chaz trevizo Type: BLOOD SPECIMENOrdering Facility: [facility] Address: [address] [place] [address] Result Comment: 40-5 9 mg/dL, Acceptable>59 mg/dL, High: Negative risk factor for coronary heart disease<40 mg/dL, Low: Positive risk factor for coronary heart disease Performed By: #### L IPNF ####[facility] LABIA [id number] [address] LDL CHOLESTEROL, NF 76 mg/dL Normal <100 [facility] Comment on above: Order Comment: Chaz trevizo Type: BLOOD SPECIMENOrdering Facility: [facility] Address: [address] [place] [address] Result Comment: <100 mg/dL, Optimal 100-129 mg/dL, Near optimal/above optimal 130-159 mg/dL, Borderline high 160-189 mg/dL, High>189 mg/dL, Very highSecondary prevention optimal LDL Cholesterol levels are recommended to be < 70 mg/dL Performed By: #### L IPNF ####[facility] LABIA [id number] [address] LDL/HDL RATIO, NF 2.17 mg/dL Normal <2.54 [facility] Comment on above: Order Comment: Chaz joseline Type: BLOOD SPECIMENOrdering Facility: [facility] Address: [address] [place] [address] Result Comment: Refe rence:1. National Cholesterol Education Program ATP III Guideline At-A-Glance Quick Desk Reference: National Heart, Lung, and Blood Lott. National Institutes of Health. 2001: NIH Publication No. 01-3305.2. An International Atherosclerosis Society position paper: global recommendations for the management of dyslipidemia: executive summary, Atherosclerosis. 2014: 232(2):410-413. Performed By: #### L IPNF ####[facility] LABCLIA [id number] [place] [address] [place] NON HDL CHOL, NF 100 mg/dL Normal <130 [facility] Comment on above: Order Comment: Speci men Type: BLOOD SPECIMENOrdering Facility: [facility] Address: [address] [place] [address] Result Comment: <130 mg/dL, Optimal 130-159 mg/dL, Near optimal/above optimal 160-189 mg/dL, Borderline high 190-219 mg/dL, High>219 mg/dL, Very highSecondary prevention optimal non HDL Cholesterol levels are recommended to be <100 mg/dL Performed By: #### L IPNF ####[facility] LABCLIA [id number] [address] [place] T CHOL/HDL RATIO NF 3.86 mg/dL Normal <5.10 [facility] Comment on above: Order Comment: Speci men Type: BLOOD SPECIMENOrdering Facility: [facility] Address: [address] [place] [address] Performed By: #### L IPNF ####[facility] LABCLIA [id number] [place] [address] [place] TRIGLYCERIDES, NF 118 mg/dL Normal <150 [facility] Comment on above: Order Comment: Speci men Type: BLOOD SPECIMENOrdering Facility: [facility] Address: [address] [place] [address] Result Comment: <150 mg/dL, Normal 150-199 mg/dL, Borderline high 200-499 mg/dL, High>499 mg/dL, Very high Performed By: #### L IPNF ####[facility] LABCLIA [id number] [place] [address] [place] VLDL CHOLESTEROL, NF 24 mg/dL Normal <30 [facility] Comment on above: Order Comment: Speci men Type: BLOOD SPECIMENOrdering Facility: [facility] Address: [address] [place] [address] Performed By: #### L IPNF ####[facility] LABIA [id number] [address] [place] Magnesium SerPl-mCncon 11-20 Magnesium [Mass/Vol] 2.1 mg/dL Normal 1.7-2.3 [facility] Comment on above: Order Comment: Speci men Type: BLOOD SPECIMENOrdering Facility: [facility] Address: [address] [place] [address] Performed By: #### 3 3959-8, , ####[facility] LABIA [id number] [address] Prealb SerPl-mCncon 11-20-19 Prealbumin [Mass/Vol] 25 mg/dL Normal 17-36 [facility] Comment on above: Order Comment: Speci men Type: BLOOD SPECIMENOrdering Facility: [facility] Address: [address] [place] [address] Performed By: #### 1 4338-8 ####[facility] [id number] [address] Procalcitonin SerPl-ncon 0 11-20-2022 Procalcitonin [Mass/Vol] 0.10 ng/mL High <0.09 [facility] Comment on above: Order Comment: Speci men Type: BLOOD SPECIMENOrdering Facility: [facility] Address: [address] [place] [address] Result Comment: For a guided interpretation of test results, please visit the Change in Procalcitonin Calculator, [email or web address]. Performed By: #### 3 3959-8, 19148-8, 56284-4 ####[facility] LABIA [id number] [place] [address] [place] Retics #on 11-20-2022 Reticulocytes (Bld) [#/Vol] 0.39495 10*3/uL Normal 0.018-0.10 0 [facility] Comment on above: Order Comment: Speci men Type: BLOOD SPECIMENOrdering Facility: [facility] Address: [address] [place] [address] Performed By: #### 5 8410-2, 62826-6, 19618-2 ####[facility] LABCLIA [id number] [place] [address] [place] Reticulocytes (Bld) [#/Vol]o n 11-20-2022 Reticulocytes/100 RBC (Bld) 1.4 % Normal 0.4-2.0 [facility] Comment on above: Order Comment: Speci men Type: BLOOD SPECIMENOrdering Facility: [facility] Address: [address] [place] [address] Performed By: #### 5 8410-2, 00358-4, 42264-9 ####[facility] LABCLIA [id number] [place] [address] [place] SARS-CoV-2 RNA Resp Ql KELLIE+p robeon 11-20-2022 SARS-CoV-2 (COVID-19) RNA KELLIE+probe Ql (Resp) COVID 19 RESULT: Detected The method used is RT-PCR or an equivalent NAAT method. Reference Range(the expected result in uninfected individuals): Not detected Normal [facility] Comment on above: Performed By: #### 9 4500-6 ####[facility] LABCLIA [id number] [place] [address] [place] Urinalysis complete panel (U )on 11-20-2022 Bilirubin Ql (U) Negative Normal Negative [facility] Comment on above: Order Comment: Speci men Type: URINE SPECIMENOrdering Facility: [facility] Address: [address] [place] [address] Performed By: #### 2 4356-8 ####[facility] LABCLIA [id number] [place] [address] [place] Clarity (Unsp spec) Clear Normal Clear [facility] Comment on above: Order Comment: Speci men Type: URINE SPECIMENOrdering Facility: [facility] Address: [address] [address] Performed By: #### 2 4356-8 ####[facility] LABCLIA [id number] [place] [address] [place] Color (U) Yellow Normal Yellow [facility] Comment on above: Order Comment: Speci men Type: URINE SPECIMENOrdering Facility: [facility] Address: [address] [address] Performed By: #### 2 4356-8 ####[facility] LABCLIA [id number] [place] [address] [place] Glucose Test strip (U) [Mass/Vol] Negative Normal Trace, Negative [facility] Comment on above: Order Comment: Speci men Type: URINE SPECIMENOrdering Facility: [facility] Address: [address] [address] Performed By: #### 2 4356-8 ####[facility] LABCLIA [id number] [place] [address] [place] Hemoglobin Ql (U) Negative Normal Negative, Trace [facility] Comment on above: Order Comment: Speci men Type: URINE SPECIMENOrdering Facility: [facility] Address: [address] Performed By: #### 2 4356-8 ####[facility] LABCLIA [id number] [place] [address] [place] Ketones Ql (U) Trace Normal Trace, Negative [facility] Comment on above: Order Comment: Speci men Type: URINE SPECIMENOrdering Facility: [facility] Address: [address] Performed By: #### 2 4356-8 ####[facility] LABCLIA [id number] [place] [address] [place] Leukocyte esterase Test strip Ql (U) Negative Normal Negative, 25 Winter/mL [facility] Comment on above: Order Comment: Speci men Type: URINE SPECIMENOrdering Facility: [facility] Address: [address] [place] [address] Performed By: #### 2 4356-8 ####[facility] LABCLIA [id number] [place] [address] [place] Nitrite Ql (U) Negative Normal Negative [facility] Comment on above: Order Comment: Speci men Type: URINE SPECIMENOrdering Facility: [facility] Address: [address] [place] [address] Performed By: #### 2 4356-8 ####[facility] LABIA [id number] [place] [address] [place] pH (U) 5.0 [pH] Normal 5.0-8.0 [facility] Comment on above: Order Comment: Speci men Type: URINE SPECIMENOrdering Facility: [facility] Address: [address] [place] [address] Performed By: #### 2 4356-8 ####[facility] LABIA [id number] [place] [address] [place] Protein (U) [Mass/Vol] Trace Normal Trace , Negative [facility] Comment on above: Order Comment: Speci men Type: URINE SPECIMENOrdering Facility: [facility] Address: [address] [place], [place] [address] Performed By: #### 2 4356-8 ####[facility] LABCLIA [id number] [place] [address] [place] RBC LM.HPF (Urine sed) [#/Area] 3-5 /HPF Abnormal 0-3 /HPF [facility] Comment on above: Order Comment: Speci men Type: URINE SPECIMENOrdering Facility: [facility] Address: [address] [place] [address] Performed By: #### 2 4356-8 ####[facility] LABIA [id number] [address] [place] Specific gravity (U) [Rel density] 1.020 Normal 1.005-1.03 0 [facility] Comment on above: Order Comment: Speci men Type: URINE SPECIMENOrdering Facility: [facility] Address: [address] [place] [address] Performed By: #### 2 4356-8 ####[facility] LABIA [id number] [place] [address] [place] Urobilinogen Ql (U) Negative Normal Negative [facility] Comment on above: Order Comment: Speci men Type: URINE SPECIMENOrdering Facility: [facility] Address: [address] [place] [address] Performed By: #### 2 4356-8 ####[facility] LABIA [id number] [place] [address] [place] WBC LM.HPF (Urine sed) [#/Area] 0-5 /HPF Normal 0-5 /HPF [facility] Comment on above: Order Comment: Speci men Type: URINE SPECIMENOrdering Facility: [facility] Address: [address] [place] [address] Performed By: #### 2 4356-8 ####[facility] LABIA [id number] [place] [address] [place] XR CHEST 1V FRONTAL PORTon 0 11-20-2022 XR CHEST 1V FRONTAL PORT Normal [facility] CBC AUTO DIFFon 11-09-2022 BASO # 0.0 103/ul Normal 0.0-0.1 [facility] Comment on above: Performed By: #### C #### [facility] [address] [address] [address] Bruce Nicholas Basophils/100 WBC (Bld) 0.1 % Critically low 0.2-2.0 [facility] Comment on above: Performed By: #### C BC #### [facility] [address] [address] [address] Bruce Nicholas EO # 0.0 103/ul Normal 0.0-0.7 [facility] Comment on above: Performed By: #### C BC #### [facility] [address] [address] [address] Bruce Nicholas Eosinophils/100 WBC (Bld) 0.0 % Critically low 0.9-7.0 [facility] Comment on above: Performed By: #### C BC #### [facility] [address] [place] [address] Dr. Bruce Nicholas Erythrocyte distribution width (RBC) [Ratio] 16.0 % Critically high 11.0-15.0 [facility] Comment on above: Performed By: #### C BC #### [facility] [address] [place] [address] Dr. Bruce Nicholas Hematocrit (Bld) [Volume fraction] 36.6 % Critically low 42.0-54.0 [facility] Comment on above: Performed By: #### C BC #### [facility] [address] [place] [address] Dr. Bruce Nicholas Hemoglobin (Bld) [Mass/Vol] 12.3 g/dL Critically low 14.0-18.0 [facility] Comment on above: Performed By: #### C BC #### [facility] [address] [place] [address] Dr. Bruce Nicholas IG # 0.06 10e3/ul Critically high 0.00-0.03 [facility] Comment on above: Performed By: #### C BC #### [facility] [address] [place] [address] Dr. Bruce Nicholas IG % 0.7 % Critically high 0.0-0.5 [facility] Comment on above: Performed By: #### C BC #### [facility] [address] [address] [address] Bruce Nicholas LYMPH # 1.0 103/ul Critically low 1.2-3.8 [facility] Comment on above: Performed By: #### C BC #### [facility] [address] [place] [address] Dr. Bruce Nicholas Lymphocytes/100 WBC (Bld) 11.8 % Critically low 20.5-60.0 [facility] Comment on above: Performed By: #### C BC #### [facility] [address] [place] [address] Dr. Bruce Nicholas MANUAL DIFF REQ NO Normal [facility] Comment on above: Performed By: #### C BC #### [facility] [address] [place] [address] Dr. Bruce Nicholas MCH (RBC) [Entitic mass] 27.3 pg Normal 25.9-34.0 [facility] Comment on above: Performed By: #### C BC #### [facility] [address] [place] [address] Dr. Bruce Nicholas MCHC (RBC) [Mass/Vol] 33.6 g/dL Normal 29.9-35.2 [facility] Comment on above: Performed By: #### C BC #### [facility] [address] [place] [address] Dr. Bruce Nicholas MCV (RBC) [Entitic vol] 81.2 fL Normal 80.0-94.0 [facility] Comment on above: Performed By: #### C BC #### [facility] [address] [place] [address] Dr. Bruce Nicholas MONO # 0.2 103/ul Critically low 0.3-0.8 [facility] Comment on above: Performed By: #### C BC #### [facility] [address] [place] [address] Dr. Bruce Nicholas Monocytes/100 WBC (Bld) 3.0 % Normal 1.7-12.0 [facility] Comment on above: Performed By: #### C BC #### [facility] [address] [address] [address] Bruce Nicholas NEUT # 6.8 103/ul Critically high 1.4-6.5 [facility] Comment on above: Performed By: #### C BC #### [facility] [address] [address] [address] Bruce Nicholas Neutrophils/100 WBC (Bld) 84.4 % Critically high 43.0-75.0 [facility] Comment on above: Performed By: #### C BC #### [facility] [address] [place] [address] Dr. Bruce Nicholas Platelet mean volume (Bld) [Entitic vol] 11.6 fL Normal 9.5-13.5 [facility] Comment on above: Performed By: #### C BC #### [facility] [address] [place] [address] Dr. Bruce Nicholas PLT 206 103/ul Normal 150-450 [facility] Comment on above: Performed By: #### C BC #### [facility] [address] [place] [address] Dr. Bruce Nicholas RBC 4.51 106/ul Critically low 4.70-6.10 [facility] Comment on above: Performed By: #### C BC #### [facility] [address] [place] [address] Dr. Bruce Nicholas WBC 8.1 103/ul Normal 4.0-11.0 [facility] Comment on above: Performed By: #### C BC #### [facility] [address] [place] [address] Dr. Bruce Nicholas POINT OF CARE GLUCOSEon 10-20 Glucose [Mass/Vol] 134 mg/dL Critically high 74-106 [facility] Comment on above: Performed By: #### P OCGLUC #### [facility] [address] [place] [address] Dr. Bruce Nicholas PROF CHEM 8 (BAS METB)on Anion gap [Moles/Vol] 13.3 mmol/L Normal [facility] Comment on above: Performed By: #### P OCGLUC #### [facility] [address] [address] [address] Bruce Nicholas Calcium [Mass/Vol] 9.0 mg/dL Normal 8.5-10.1 [facility] Comment on above: Performed By: #### P OCGLUC #### [facility] [address] [address] [address] Bruce Nicholas Chloride [Moles/Vol] 105 mmol/L Normal 98-107 [facility] Comment on above: Performed By: #### P OCGLUC #### [facility] [address] [address] [address] Bruce Nicholas CO2 [Moles/Vol] 24.9 mmol/L Normal 21.0-32.0 [facility] Comment on above: Performed By: #### P OCGLUC #### [facility] [address] [address] [address] Bruce Nicholas Creatinine [Mass/Vol] 0.86 mg/dL Normal 0.70-1.30 [facility] Comment on above: Performed By: #### P OCGLUC #### [facility] [address] [address] [address] Bruce Nicholas EGFR-AF AFGHAN >60 Normal >=60 [facility] Comment on above: Performed By: #### P OCGLUC #### [facility] [address] [address] [address] Bruce Nicholas EGFR-NON AF AFGHAN >60 Normal >=60 [facility] Comment on above: Performed By: #### P OCGLUC #### [facility] [address] [address] [address] Bruce Nicholas Glucose [Mass/Vol] 127 mg/dL Critically high 74-106 [facility] Comment on above: Performed By: #### P OCGLUC #### [facility] [address] [address] [address] Bruce Nicholas Potassium [Moles/Vol] 4.2 mmol/L Normal 3.5-5.1 [facility] Comment on above: Performed By: #### P OCGLUC #### [facility] [address] [address] [address] Bruce Nicholas Sodium [Moles/Vol] 139 mmol/L Normal 136-145 [facility] Comment on above: Performed By: #### P OCGLUC #### [facility] [address] [place] [address] Dr. Bruce Nicholas Urea nitrogen [Mass/Vol] 30.0 mg/dL Critically high 7.0-18.0 [facility] Comment on above: Performed By: #### P OCGLUC #### [facility] [address] [place] [address] Dr. Bruce Nicholas Urea nitrogen/Creatinine [Mass ratio] 34.9 mg/mg Normal [facility] Comment on above: Performed By: #### P OCGLUC #### [facility] [address] [place] [address] Dr. Bruce Nicholas CBC AUTO DIFFon 11-08-2022 BASO # 0.0 103/ul Normal 0.0-0.1 [facility] Comment on above: Performed By: #### C VDTBH #### [facility] [address] [place] [address] Dr. Bruce Nicholas Basophils/100 WBC (Bld) 0.1 % Critically low 0.2-2.0 [facility] Comment on above: Performed By: #### C VDTBH #### [facility] [address] [place] [address] Dr. Bruce Nicholas EO # 0.0 103/ul Normal 0.0-0.7 [facility] Comment on above: Performed By: #### C VDTBH #### [facility] [address] [place] [address] Dr. Bruce Nicholas Eosinophils/100 WBC (Bld) 0.0 % Critically low 0.9-7.0 [facility] Comment on above: Performed By: #### C VDTBH #### [facility] [address] [place] [address] Dr. Bruce Nicholas Erythrocyte distribution width (RBC) [Ratio] 15.8 % Critically high 11.0-15.0 [facility] Comment on above: Performed By: #### C VDTBH #### [facility] [address] [address] [address] Bruce Nicholas Hematocrit (Bld) [Volume fraction] 33.4 % Critically low 42.0-54.0 [facility] Comment on above: Performed By: #### C VDTBH #### [facility] [address] [address] [address] Bruce Nicholas Hemoglobin (Bld) [Mass/Vol] 11.5 g/dL Critically low 14.0-18.0 [facility] Comment on above: Performed By: #### C VDTBH #### [facility] [address] [place] [address] Dr. Bruce Nicholas IG # 0.05 10e3/ul Critically high 0.00-0.03 [facility] Comment on above: Performed By: #### C VDTBH #### [facility] [address] [place] [address] Dr. Bruce Nicholas IG % 0.5 % Normal 0.0-0.5 [facility] Comment on above: Performed By: #### C VDTBH #### [facility] [address] [place] [address] Dr. Bruce Nicholas LYMPH # 0.9 103/ul Critically low 1.2-3.8 [facility] Comment on above: Performed By: #### C VDTBH #### [facility] [address] [place] [address] Dr. Bruce Nicholas Lymphocytes/100 WBC (Bld) 9.6 % Critically low 20.5-60.0 [facility] Comment on above: Performed By: #### C VDTBH #### [facility] [address] [place] [address] Dr. Bruce Nicholas MANUAL DIFF REQ NO Normal [facility] Comment on above: Performed By: #### C VDTBH #### [facility] [address] [place] [address] Dr. Bruce Nicholas MCH (RBC) [Entitic mass] 27.5 pg Normal 25.9-34.0 [facility] Comment on above: Performed By: #### C VDTBH #### [facility] [address] [place] [address] Dr. Bruce Nicholas MCHC (RBC) [Mass/Vol] 34.4 g/dL Normal 29.9-35.2 [facility] Comment on above: Performed By: #### C VDTBH #### [facility] [address] [place] [address] Dr. Bruce Nicholas MCV (RBC) [Entitic vol] 79.9 fL Critically low 80.0-94.0 [facility] Comment on above: Performed By: #### C VDTBH #### [facility] [address] [place] [address] Dr. Bruce Nicholas MONO # 0.3 103/ul Normal 0.3-0.8 [facility] Comment on above: Performed By: #### C VDTBH #### [facility] [address] [place] [address] Dr. Bruce Nicholas Monocytes/100 WBC (Bld) 3.3 % Normal 1.7-12.0 [facility] Comment on above: Performed By: #### C VDTBH #### [facility] [address] [place] [address] Dr. Bruce Nicholas NEUT # 8.3 103/ul Critically high 1.4-6.5 [facility] Comment on above: Performed By: #### C VDTBH #### [facility] [address] [place] [address] Dr. Bruce Nicholas Neutrophils/100 WBC (Bld) 86.5 % Critically high 43.0-75.0 [facility] Comment on above: Performed By: #### C VDTBH #### [facility] [address] [place] [address] Dr. Bruce Nicholas Platelet mean volume (Bld) [Entitic vol] 12.1 fL Normal 9.5-13.5 [facility] Comment on above: Performed By: #### C VDTBH #### [facility] [address] [place] [address] Dr. Bruce Nicholas PLT 205 103/ul Normal 150-450 [facility] Comment on above: Performed By: #### C VDTBH #### [facility] [address] [address] [address] Bruce Nicholas RBC 4.18 106/ul Critically low 4.70-6.10 [facility] Comment on above: Performed By: #### C VDTBH #### [facility] [address] [address] [address] Bruce Nicholas WBC 9.6 103/ul Normal 4.0-11.0 [facility] Comment on above: Performed By: #### C VDTBH #### [facility] [address] [place] [address] Dr. Bruce Nicholas POINT OF CARE GLUCOSEon 10-20 Glucose [Mass/Vol] 121 mg/dL Critically high 74-106 [facility] Comment on above: Performed By: #### C VDTBH #### [facility] [address] [place] [address] Dr. Bruce Nicholas Glucose [Mass/Vol] 126 mg/dL Critically high 74-106 [facility] Comment on above: Performed By: #### C BC #### [facility] [address] [place] [address] Dr. Bruce Nicholas Glucose [Mass/Vol] 164 mg/dL Critically high 74-106 [facility] Comment on above: Performed By: #### C BC #### [facility] [address] [place] [address] Dr. Bruce Nicholas PROF CHEM 8 (BAS METB)on Anion gap [Moles/Vol] 14.2 mmol/L [facility] Comment on above: Performed By: #### P OCGLUC #### [facility] [address] [place] [address] Dr. Bruce Nicholas Calcium [Mass/Vol] 8.9 mg/dL Normal 8.5-10.1 [facility] Comment on above: Performed By: #### P OCGLUC #### [facility] [address] [place] [address] Dr. Bruce Nicholas Chloride [Moles/Vol] 107 mmol/L Normal 98-107 [facility] Comment on above: Performed By: #### P OCGLUC #### [facility] [address] [address] [address] Bruce Nicholas CO2 [Moles/Vol] 22.8 mmol/L Normal 21.0-32.0 [facility] Comment on above: Performed By: #### P OCGLUC #### [facility] [address] [address] [address] Bruce Nicholas Creatinine [Mass/Vol] 0.94 mg/dL Normal 0.70-1.30 [facility] Comment on above: Performed By: #### P OCGLUC #### [facility] [address] [address] [address] Bruce Nicholas EGFR-AF AFGHAN >60 Normal >=60 [facility] Comment on above: Performed By: #### P OCGLUC #### [facility] [address] [address] [address] Bruce Nicholas EGFR-NON AF AFGHAN >60 Normal >=60 [facility] Comment on above: Performed By: #### P OCGLUC #### [facility] [address] [address] [address] Bruce Nicholas Glucose [Mass/Vol] 128 mg/dL Critically high 74-106 [facility] Comment on above: Performed By: #### P OCGLUC #### [facility] [address] [address] [address] Bruce Nicholas Potassium [Moles/Vol] 4.0 mmol/L Normal 3.5-5.1 [facility] Comment on above: Performed By: #### P OCGLUC #### [facility] [address] [address] [address] Bruce Nicholas Sodium [Moles/Vol] 140 mmol/L Normal 136-145 [facility] Comment on above: Performed By: #### P OCGLUC #### [facility] [address] [address] [address] Bruce Nicholas Urea nitrogen [Mass/Vol] 33.0 mg/dL Critically high 7.0-18.0 [facility] Comment on above: Performed By: #### P OCGLUC #### [facility] [address] [address] [address] Bruce Nicholas Urea nitrogen/Creatinine [Mass ratio] 35.1 mg/mg Normal [facility] Comment on above: Performed By: #### P OCGLUC #### [facility] [address] [place] [address] Dr. Bruce Nicholas XR CHEST 2 Von [...] deformities again identified. Electronically authenticated by: EN CHRISTIAN Date: 2022-11-08 13:38 Normal [facility] CBC AUTO DIFFon 11-07-2022 BASO # 0.0 103/ul Normal 0.0-0.1 [facility] Comment on above: Performed By: #### C BC #### [facility] [address] [place] [address] Dr. Bruce Nicholas Basophils/100 WBC (Bld) 0.0 % Critically low 0.2-2.0 [facility] Comment on above: Performed By: #### C BC #### [facility] [address] [place] [address] Dr. Bruce Nicholas EO # 0.0 103/ul Normal 0.0-0.7 [facility] Comment on above: Performed By: #### C BC #### [facility] [address] [address] [address] Bruce Nicholas Eosinophils/100 WBC (Bld) 0.0 % Critically low 0.9-7.0 [facility] Comment on above: Performed By: #### C BC #### [facility] [address] [address] [address] Bruce Nicholas Erythrocyte distribution width (RBC) [Ratio] 16.1 % Critically high 11.0-15.0 [facility] Comment on above: Performed By: #### C BC #### [facility] [address] [place] [address] Dr. Bruce Nicholas Hematocrit (Bld) [Volume fraction] 36.3 % Critically low 42.0-54.0 [facility] Comment on above: Performed By: #### C BC #### [facility] [address] [place] [address] Dr. Bruce Nicholas Hemoglobin (Bld) [Mass/Vol] 11.5 g/dL Critically low 14.0-18.0 [facility] Comment on above: Performed By: #### C BC #### [facility] [address] [place] [address] Dr. Bruce Nicholas IG # 0.07 10e3/ul Critically high 0.00-0.03 [facility] Comment on above: Performed By: #### C BC #### [facility] [address] [place] [address] Dr. Bruce Nicholas IG % 0.6 % Critically high 0.0-0.5 [facility] Comment on above: Performed By: #### C BC #### [facility] [address] [place] [address] Dr. Bruce Nicholas LYMPH # 0.9 103/ul Critically low 1.2-3.8 [facility] Comment on above: Performed By: #### C BC #### [facility] [address] [place] [address] Dr. Bruce Nicholas Lymphocytes/100 WBC (Bld) 7.2 % Critically low 20.5-60.0 [facility] Comment on above: Performed By: #### C BC #### [facility] [address] [place] [address] Dr. Bruce Nicholas MANUAL DIFF REQ NO Normal [facility] Comment on above: Performed By: #### C BC #### [facility] [address] [place] [address] Dr. Bruce Nicholas MCH (RBC) [Entitic mass] 27.7 pg Normal 25.9-34.0 [facility] Comment on above: Performed By: #### C BC #### [facility] [address] [place] [address] Dr. Bruce Nicholas MCHC (RBC) [Mass/Vol] 31.7 g/dL Normal 29.9-35.2 [facility] Comment on above: Performed By: #### C BC #### [facility] [address] [place] [address] Dr. Bruce Nicholas MCV (RBC) [Entitic vol] 87.5 fL Normal 80.0-94.0 [facility] Comment on above: Performed By: #### C BC #### [facility] [address] [place] [address] Dr. Bruce Nicholas MONO # 0.3 103/ul Normal 0.3-0.8 [facility] Comment on above: Performed By: #### C BC #### [facility] [address] [place] [address] Dr. Bruce Nicholas Monocytes/100 WBC (Bld) 2.9 % Normal 1.7-12.0 [facility] Comment on above: Performed By: #### C BC #### [facility] [address] [place] [address] Dr. Bruce Nicholas NEUT # 10.6 103/ul Critically high 1.4-6.5 [facility] Comment on above: Performed By: #### C BC #### [facility] [address] [place] [address] Dr. Bruce Nicholas Neutrophils/100 WBC (Bld) 89.3 % Critically high 43.0-75.0 [facility] Comment on above: Performed By: #### C BC #### [facility] [address] [address] [address] Bruce Nicholas Platelet mean volume (Bld) [Entitic vol] 12.4 fL Normal 9.5-13.5 [facility] Comment on above: Performed By: #### C BC #### [facility] [address] [address] [address] Bruce Nicholas PLT 195 103/ul Normal 150-450 [facility] Comment on above: Performed By: #### C BC #### [facility] [address] [address] [address] Bruce Nicholas RBC 4.15 106/ul Critically low 4.70-6.10 [facility] Comment on above: Performed By: #### C BC #### [facility] [address] [place] [address] Dr. Bruce Nicholas WBC 11.9 103/ul Critically high 4.0-11.0 [facility] Comment on above: Performed By: #### C BC #### [facility] [address] [place] [address] Dr. Bruce Nicholas POINT OF CARE GLUCOSEon 10-20 Glucose [Mass/Vol] 145 mg/dL Critically high -106 [facility] Comment on above: Performed By: #### P OCGLUC #### [facility] [address] [place] [address] Dr. Bruce Nichoals Glucose [Mass/Vol] 139 mg/dL Critically high -106 [facility] Comment on above: Performed By: #### C BC #### [facility] [address] [place] [address] Dr. Bruce Nicholas Glucose [Mass/Vol] 122 mg/dL Critically high -106 [facility] Comment on above: Performed By: #### P OCGLUC #### [facility] [address] [place] [address] Dr. Bruce Nicholas PROF CHEM 8 (BAS METB)on Anion gap [Moles/Vol] 14.8 mmol/L Normal [facility] Comment on above: Performed By: #### C BC #### [facility] [address] [address] [address] Bruce Nicholas Calcium [Mass/Vol] 9.0 mg/dL Normal 8.5-10.1 [facility] Comment on above: Performed By: #### C BC #### [facility] [address] [address] [address] Bruce Nicholas Chloride [Moles/Vol] 107 mmol/L Normal 98-107 [facility] Comment on above: Performed By: #### C BC #### [facility] [address] [address] [address] Bruce Nicholas CO2 [Moles/Vol] 21.3 mmol/L Normal 21.0-32.0 [facility] Comment on above: Performed By: #### C BC #### [facility] [address] [place] [address] Dr. Bruce Nicholas Creatinine [Mass/Vol] 1.11 mg/dL Normal 0.70-1.30 [facility] Comment on above: Performed By: #### C BC #### [facility] [address] [place] [address] Dr. Bruce Nicholas EGFR-AF AFGHAN >60 Normal >=60 [facility] Comment on above: Performed By: #### C BC #### [facility] [address] [place] [address] Dr. Bruce Nicholas EGFR-NON AF AFGHAN >60 Normal >=60 [facility] Comment on above: Performed By: #### C BC #### [facility] [address] [place] [address] Dr. Bruce Nicholas Glucose [Mass/Vol] 158 mg/dL Critically high 74-106 [facility] Comment on above: Performed By: #### C BC #### [facility] [address] [place] [address] Dr. Bruce Nicholas Potassium [Moles/Vol] 4.1 mmol/L Normal 3.5-5.1 [facility] Comment on above: Performed By: #### C BC #### [facility] [address] [place] [address] Dr. Bruce Nicholas Sodium [Moles/Vol] 139 mmol/L Normal 136-145 [facility] Comment on above: Performed By: #### C BC #### [facility] [address] [place] [address] Dr. Bruce Nicholas Urea nitrogen [Mass/Vol] 28.0 mg/dL Critically high 7.0-18.0 [facility] Comment on above: Performed By: #### C BC #### [facility] [address] [place] [address] Dr. Bruce Nicholas Urea nitrogen/Creatinine [Mass ratio] 25.2 mg/mg Normal [facility] Comment on above: Performed By: #### C BC #### [facility] [address] [place] [address] Dr. Bruce Nicholas CBC AUTO DIFFon 11-06-2022 BASO # 0.0 103/ul Normal 0.0-0.1 [facility] Comment on above: Performed By: #### C BC #### [facility] [address] [place] [address] Dr. Bruce Nicholas Basophils/100 WBC (Bld) 0.0 % Critically low 0.2-2.0 [facility] Comment on above: Performed By: #### C BC #### [facility] [address] [place] [address] Dr. Bruce Nicholas EO # 0.0 103/ul Normal 0.0-0.7 [facility] Comment on above: Performed By: #### C BC #### [facility] [address] [place] [address] Dr. Bruce Nicholas Eosinophils/100 WBC (Bld) 0.0 % Critically low 0.9-7.0 [facility] Comment on above: Performed By: #### C BC #### [facility] [address] [place] [address] Dr. Bruce Nicholas Erythrocyte distribution width (RBC) [Ratio] 15.8 % Critically high 11.0-15.0 [facility] Comment on above: Performed By: #### C BC #### [facility] [address] [address] [address] Bruce Nicholas Hematocrit (Bld) [Volume fraction] 37.1 % Critically low 42.0-54.0 [facility] Comment on above: Performed By: #### C BC #### [facility] [address] [place] [address] Dr. Bruce Nicholas Hemoglobin (Bld) [Mass/Vol] 11.7 g/dL Critically low 14.0-18.0 [facility] Comment on above: Performed By: #### C BC #### [facility] [address] [place] [address] Dr. Bruce Nicholas IG # 0.03 10e3/ul Normal 0.00-0.03 [facility] Comment on above: Performed By: #### C BC #### [facility] [address] [place] [address] Dr. Bruce Nicholas IG % 0.4 % Normal 0.0-0.5 [facility] Comment on above: Performed By: #### C BC #### [facility] [address] [place] [address] Dr. Bruce Nicholas LYMPH # 0.7 103/ul Critically low 1.2-3.8 [facility] Comment on above: Performed By: #### C BC #### [facility] [address] [place] [address] Dr. Bruce Nicholas Lymphocytes/100 WBC (Bld) 9.9 % Critically low 20.5-60.0 [facility] Comment on above: Performed By: #### C BC #### [facility] [address] [place] [address] Dr. Bruce Nicholas MANUAL DIFF REQ NO Normal [facility] Comment on above: Performed By: #### C BC #### [facility] [address] [place] [address] Dr. Bruce Nicholas MCH (RBC) [Entitic mass] 27.3 pg Normal 25.9-34.0 [facility] Comment on above: Performed By: #### C BC #### [facility] [address] [place] [address] Dr. Bruce Nicholas MCHC (RBC) [Mass/Vol] 31.5 g/dL Normal 29.9-35.2 [facility] Comment on above: Performed By: #### C BC #### [facility] [address] [place] [address] Dr. Bruce Nicholas MCV (RBC) [Entitic vol] 86.5 fL Normal 80.0-94.0 [facility] Comment on above: Performed By: #### C BC #### [facility] [address] [place] [address] Dr. Bruce Nicholas MONO # 0.1 103/ul Critically low 0.3-0.8 [facility] Comment on above: Performed By: #### C BC #### [facility] [address] [place] [address] Dr. Bruce Nicholas Monocytes/100 WBC (Bld) 1.9 % Normal 1.7-12.0 [facility] Comment on above: Performed By: #### C BC #### [facility] [address] [place] [address] Dr. Bruce Nicholas NEUT # 6.0 103/ul Normal 1.4-6.5 [facility] Comment on above: Performed By: #### C BC #### [facility] [address] [place] [address] Dr. Bruce Nicholas Neutrophils/100 WBC (Bld) 87.8 % Critically high 43.0-75.0 [facility] Comment on above: Performed By: #### C BC #### [facility] [address] [place] [address] Dr. Bruce Nicholas Platelet mean volume (Bld) [Entitic vol] 12.4 fL Normal 9.5-13.5 [facility] Comment on above: Performed By: #### C BC #### [facility] [address] [place] [address] Dr. Bruce Nicholas PLT 186 103/ul Normal 150-450 [facility] Comment on above: Performed By: #### C BC #### [facility] [address] [place] [address] Dr. Bruce Nicholas RBC 4.29 106/ul Critically low 4.70-6.10 [facility] Comment on above: Performed By: #### C BC #### [facility] [address] [place] [address] Dr. Bruce Nicholas WBC 6.9 103/ul Normal 4.0-11.0 [facility] Comment on above: Performed By: #### C BC #### [facility] [address] [place] [address] Dr. Bruce Nicholas POINT OF CARE GLUCOSEon 10-19 Glucose [Mass/Vol] 139 mg/dL Critically high 74-106 [facility] Comment on above: Performed By: #### P OCGLUC #### [facility] [address] [place] [address] Dr. Bruce Nicholas Glucose [Mass/Vol] 129 mg/dL Critically high 74-106 [facility] Comment on above: Performed By: #### P OCGLUC #### [facility] [address] [place] [address] Dr. Bruce Nicholas Glucose [Mass/Vol] 128 mg/dL Critically high 74-106 [facility] Comment on above: Performed By: #### P OCGLUC #### [facility] [address] [place] [address] Dr. Bruce Nicholas PROF CHEM 8 (BAS METB)on Anion gap [Moles/Vol] 17.3 mmol/L Normal [facility] Comment on above: Performed By: #### C BC #### [facility] [address] [place] [address] Dr. Bruce Nicholas Calcium [Mass/Vol] 9.0 mg/dL Normal 8.5-10.1 [facility] Comment on above: Performed By: #### C BC #### [facility] [address] [place] [address] Dr. Bruce Nicholas Chloride [Moles/Vol] 107 mmol/L Normal 98-107 [facility] Comment on above: Performed By: #### C BC #### [facility] [address] [place] [address] Dr. Bruce Nicholas CO2 [Moles/Vol] 20.4 mmol/L Critically low 21.0-32.0 [facility] Comment on above: Performed By: #### C BC #### [facility] [address] [place] [address] Dr. Bruce Nicholas Creatinine [Mass/Vol] 1.12 mg/dL Normal 0.70-1.30 [facility] Comment on above: Performed By: #### C BC #### [facility] [address] [address] [address] Bruce Nicholas EGFR-AF AFGHAN >60 Normal >=60 [facility] Comment on above: Performed By: #### C BC #### [facility] [address] [place] [address] Dr. Bruce Nicholas EGFR-NON AF AFGHAN >60 Normal >=60 [facility] Comment on above: Performed By: #### C BC #### [facility] [address] [place] [address] Dr. Bruce Nicholas Glucose [Mass/Vol] 184 mg/dL Critically high 74-106 [facility] Comment on above: Performed By: #### C BC #### [facility] [address] [place] [address] Dr. Bruce Nicholas Potassium [Moles/Vol] 3.7 mmol/L Normal 3.5-5.1 [facility] Comment on above: Performed By: #### C BC #### [facility] [address] [place] [address] Dr. Bruce Nicholas Sodium [Moles/Vol] 141 mmol/L Normal 136-145 [facility] Comment on above: Performed By: #### C BC #### [facility] [address] [place] [address] Dr. Bruce Nicholas Urea nitrogen [Mass/Vol] 25.0 mg/dL Critically high 7.0-18.0 [facility] Comment on above: Performed By: #### C BC #### [facility] [address] [place] [address] Dr. Bruce Nicholas Urea nitrogen/Creatinine [Mass ratio] 22.3 mg/mg Normal [facility] Comment on above: Performed By: #### C BC #### [facility] [address] [place] [address] Dr. Bruce Nicholas BNPon 11-05-2022 Natriuretic peptide B (Bld) [Mass/Vol] 131.0 pg/mL Normal <=900.0 [facility] Comment on above: Performed By: #### C BC #### [facility] [address] [place] [address] Dr. Bruce Nicholas CARDIAC EAMON ADMITon 023 CK [Catalytic activity/Vol] 44 U/L Normal 39-308 [facility] Comment on above: Performed By: #### C BC #### [facility] [address] [place] [address] Dr. Bruce Nicholas CK.MB [Mass/Vol] 1.08 ng/mL Normal <=3.60 [facility] Comment on above: Performed By: #### C BC #### [facility] [address] [place] [address] Dr. Bruce Nicholas HSTROP 5.2 pg/mL Normal 4.0-76.1 [facility] Comment on above: Result Comment: CUT- OFF POINTS HAVE BEEN ESTABLISHED BASED ON THE FOURTH UNIVERSAL DEFINITIONS OF MYOCARDIAL INFARCTION. THE UPPER REFERENCE LIMIT (URL) OF TROPONIN, DEFINED THE 99TH PERCENTILE OF cTnI DISTRIBUTION IN A REFERENCE POPULATION, HAS BEEN CONFIRMED THE DECISION THRESHOLD FOR NE DIAGNOSIS. Performed By: #### C BC #### [facility] [address] [place] [address] Dr. Bruce Nicholas DAVID 57 ng/mL Normal 16-96 [facility] Comment on above: Performed By: #### C BC #### [facility] [address] [place] [address] Dr. Bruce Nicholas CBC AUTO DIFFon 11-05-2022 BASO # 0.0 103/ul Normal 0.0-0.1 [facility] Comment on above: Performed By: #### C BC #### [facility] [address] [place] [address] Dr. Bruce Nicholas Basophils/100 WBC (Bld) 0.6 % Normal 0.2-2.0 [facility] Comment on above: Performed By: #### C BC #### [facility] [address] [place] [address] Dr. Bruce Nicholas EO # 0.1 103/ul Normal 0.0-0.7 [facility] Comment on above: Performed By: #### C BC #### [facility] [address] [place] [address] Dr. Bruce Nicholas Eosinophils/100 WBC (Bld) 1.3 % Normal 0.9-7.0 [facility] Comment on above: Performed By: #### C BC #### [facility] [address] [place] [address] Dr. Bruce Nicholas Erythrocyte distribution width (RBC) [Ratio] 15.4 % Critically high 11.0-15.0 [facility] Comment on above: Performed By: #### C BC #### [facility] [address] [place] [address] Dr. Bruce Nicholas Hematocrit (Bld) [Volume fraction] 44.9 % Normal 42.0-54.0 [facility] Comment on above: Performed By: #### C BC #### [facility] [address] [place] [address] Dr. Bruce Nicholas Hemoglobin (Bld) [Mass/Vol] 14.0 g/dL Normal 14.0-18.0 [facility] Comment on above: Performed By: #### C BC #### [facility] [address] [place] [address] Dr. Bruec Nicholas IG # 0.02 10e3/ul Normal 0.00-0.03 [facility] Comment on above: Performed By: #### C BC #### [facility] [address] [place] [address] Dr. Bruce Nicholas IG % 0.3 % Normal 0.0-0.5 [facility] Comment on above: Performed By: #### C BC #### [facility] [address] [place] [address] Dr. Bruce Nicholas LYMPH # 2.3 103/ul Normal 1.2-3.8 [facility] Comment on above: Performed By: #### C BC #### [facility] [address] [place] [address] Dr. Bruce Nicholas Lymphocytes/100 WBC (Bld) 31.7 % Normal 20.5-60.0 [facility] Comment on above: Performed By: #### C BC #### [facility] [address] [place] [address] Dr. Bruce Nicholas MANUAL DIFF REQ NO Normal [facility] Comment on above: Performed By: #### C BC #### [facility] [address] [place] [address] Dr. Bruce Nicholas MCH (RBC) [Entitic mass] 27.3 pg Normal 25.9-34.0 [facility] Comment on above: Performed By: #### C BC #### [facility] [address] [place] [address] Dr. Bruce Nicholas MCHC (RBC) [Mass/Vol] 31.2 g/dL Normal 29.9-35.2 [facility] Comment on above: Performed By: #### C BC #### [facility] [address] [place] [address] Dr. Bruce Nicholas MCV (RBC) [Entitic vol] 87.5 fL Normal 80.0-94.0 [facility] Comment on above: Performed By: #### C BC #### [facility] [address] [place] [address] Dr. Bruce Nicholas MONO # 0.5 103/ul Normal 0.3-0.8 [facility] Comment on above: Performed By: #### C BC #### [facility] [address] [place] [address] Dr. Bruce Nicholas Monocytes/100 WBC (Bld) 7.6 % Normal 1.7-12.0 [facility] Comment on above: Performed By: #### C BC #### [facility] [address] [place] [address] Dr. Bruce Nicholas NEUT # 4.2 103/ul Normal 1.4-6.5 [facility] Comment on above: Performed By: #### C BC #### [facility] [address] [place] [address] Dr. Bruce Nicholas Neutrophils/100 WBC (Bld) 58.5 % Normal 43.0-75.0 [facility] Comment on above: Performed By: #### C BC #### [facility] [address] [place] [address] Dr. Bruce Nicholas Platelet mean volume (Bld) [Entitic vol] 12.6 fL Normal 9.5-13.5 [facility] Comment on above: Performed By: #### C BC #### [facility] [address] [place] [address] Dr. Bruce Nicholas PLT 211 103/ul Normal 150-450 [facility] Comment on above: Performed By: #### C BC #### [facility] [address] [place] [address] Dr. Bruce Nicholas RBC 5.13 106/ul Normal 4.70-6.10 [facility] Comment on above: Performed By: #### C BC #### [facility] [address] [place] [address] Dr. Bruce Nicholas WBC 7.1 103/ul Normal 4.0-11.0 [facility] Comment on above: Performed By: #### C BC #### [facility] [address] [place] [address] Dr. Bruce Nicholas CULTURE BLOODon 11-05-2022 Microscopic examination of blood, culture Culture Observations: NO GROWTH AT 5 DAYS. Normal [facility] Comment on above: Performed By: #### C VDTBH #### [facility] [address] [place] [address] Dr. Bruce Nicholas Microscopic examination of blood, culture Culture Observations: NO GROWTH AT 5 DAYS. Normal [facility] Comment on above: Performed By: #### B LDCX1 #### [facility] [address] [place] [address] Dr. Bruce Nicholas [facility]19 SARS-CoV-2 (COVID-19) RNA KELLIE+probe Ql (Unsp spec) Not detected Normal NOT DETECTED [facility] Comment on above: Result Comment: When diagnostic [...] for this test is supported by the [place] of Health and Human Service's declaration that [...] longer be used). Performed By: #### C VDTB #### [facility] [address] [place] [address] Dr. Bruce Nicholas INFLUENZA A AND B [facility] 11-05 [facility] SEE BELOW Normal [facility] Comment on above: Result Comment: Nega tive for Flu A protein angiten. Infection due to Flu A cannot be ruled out. Flu A angiten in the sample may be below the detection limit of the test. Performed By: #### C BC #### [facility] [address] [place] [address] Dr. Bruce Nicholas [facility] Normal [facility] Comment on above: Result Comment: Nega tive for Flu B protein antigen. Infection due to Flu B cannot be ruled out. Flu B antigen in the sample may be below the detection limit of the test. Performed By: #### C BC #### [facility] [address] [place] [address] Dr. Bruce Nicholas INFLUENZA A AG Negative Normal NEGATIVE SEE COMMENT [facility] Comment on above: Performed By: #### C BC #### [facility] [address] [place] [address] Dr. Bruce Nicholas INFLUENZA B AG Negative Normal NEGATIVE SEE COMMENT [facility] Comment on above: Performed By: #### C BC #### [facility] [address] [address] [address] Bruce Nicholas POINT OF CARE GLUCOSEon 10-19 Glucose [Mass/Vol] 190 mg/dL Critically high [address] [place] [address] Comment on above: Performed By: #### P OCGLUC #### [facility] [address] [address] [address] Bruce Nicholas Glucose [Mass/Vol] 129 mg/dL Critically high [address] [place] [address] Comment on above: Performed By: #### C VDTBH #### [facility] [address] [address] [address] Bruce Nicholas Glucose [Mass/Vol] 110 mg/dL Critically high [address] [place] [address] Comment on above: Performed By: #### C BC #### [facility] [address] [place] [address] Dr. Bruce Nicholas PROF CHEM 8 (BAS METB)on Anion gap [Moles/Vol] 16.0 mmol/L Normal [facility] Comment on above: Performed By: #### C BC #### [facility] [address] [place] [address] Dr. Bruce Nicholas Calcium [Mass/Vol] 9.4 mg/dL Normal 8.5-10.1 [facility] Comment on above: Performed By: #### C BC #### [facility] [address] [address] [address] Bruce Nicholas Chloride [Moles/Vol] 106 mmol/L Normal 98-107 [facility] Comment on above: Performed By: #### C BC #### [facility] [address] [address] [address] Bruce Nicholas CO2 [Moles/Vol] 25.2 mmol/L Normal 21.0-32.0 [facility] Comment on above: Performed By: #### C BC #### [facility] [address] [address] [address] Bruce Nicholas Creatinine [Mass/Vol] 1.09 mg/dL Normal 0.70-1.30 [facility] Comment on above: Performed By: #### C BC #### [facility] [address] [address] [address] Bruce Nicholas EGFR-AF AFGHAN >60 Normal >=60 [facility] Comment on above: Performed By: #### C BC #### [facility] [address] [address] [address] Bruce Nicholas EGFR-NON AF AFGHAN >60 Normal >=60 [facility] Comment on above: Performed By: #### C BC #### [facility] [address] [address] [address] Bruce Nicholas Glucose [Mass/Vol] 107 mg/dL Critically high 74-106 [facility] Comment on above: Performed By: #### C BC #### [facility] [address] [place] [address] Dr. Bruce Nicholas Potassium [Moles/Vol] 3.2 mmol/L Critically low 3.5-5.1 [facility] Comment on above: Performed By: #### C BC #### [facility] [address] [address] [address] Bruce Nicholas Sodium [Moles/Vol] 144 mmol/L Normal 136-145 [facility] Comment on above: Performed By: #### C BC #### [facility] [address] [address] [address] Bruce Nicholas Urea nitrogen [Mass/Vol] 20.0 mg/dL Critically high 7.0-18.0 [facility] Comment on above: Performed By: #### C BC #### [facility] [address] [address] [address] Bruce Nicholas Urea nitrogen/Creatinine [Mass ratio] 18.3 mg/mg Normal [facility] Comment on above: Performed By: #### C BC #### [facility] [address] [place] [address] Dr. Bruce Nicholas XR CHEST 1 Von [...] LIZETH MCDONOUGH Date: 2022-11-05 08:05 Normal [facility] CT LSPINE WO CONon 2 [...] by: DON MURRAY Date: 2022-10-09 13:29 Normal [facility] POINT OF CARE GLUCOSEon 12- Glucose [Mass/Vol] 81 mg/dL Normal 74-106 [facility] Comment on above: Performed By: #### C VDTB #### [facility] [address] [address] [address] Bruce Nicholas Glucose [Mass/Vol] 69 mg/dL Critically low 74-106 [facility] Comment on above: Performed By: #### C BC #### [facility] [address] [address] [address] Bruce Nicholas XR MYELOGRAM LSPINE EXPon [...] DON MURRAY Date: 2022-10-08 11:11 Normal [facility] COVID-19on 02-18-2022 SARS-CoV-2 (COVID-19) RNA KELLIE+probe Ql (Unsp spec) Not detected Normal NOT DETECTED [facility] Comment on above: Result Comment: Alejo [...] authorized laboratories. Fact sheet for Healthcare Providers: https://www.fda.gov/media/251501/download Fact sheet for Patients: https://www.fda.gov/media/767662/download METHODOLOGY: Isothermal Nucleic Acid Amplification Performed By: #### C OVPC #### [facility] [employer] [facility] [employer] [address] [place] [address] COVID-19, Rapidon 02-18-2022 SARS-CoV-2 (COVID-19) RNA KELLIE+probe Ql (Unsp spec) Not detected NOT DETECTED [facility] Comment on above: Rapid NAAT: Negative results [...] authorized laboratories. Fact sheet for Healthcare Providers: https://www.fda.gov/media/435996/download Fact sheet for Patients: https://www.fda.gov/media/464347/download METHODOLOGY: Isothermal Nucleic Acid Amplification Performed at [facility] [employer] [address] GLUCOSE POCon 02-18-2022 Glucose [Mass/Vol] 100 mg/dL Normal 70-108 [facility] Comment on above: Performed By: #### P OCGL #### [employer] [address] [address] Glucose [Mass/Vol] 107 mg/dL Normal 70-108 [facility] Comment on above: Performed By: #### P OCGL #### [facility] [employer] [address] [place] [address] POCT glucoseon 02-18-2022 Glucose [Mass/Vol] 100 mg/dL 70 - 108 mg/dl [facility] Comment on above: Performed at [facility] [facility] [address] [place] [address] Glucose [Mass/Vol] 107 mg/dL 70 - 108 mg/dl [facility] Comment on above: Performed at [facility] [address] [place] [address] [facility] GLUCOSE POCon 02-17-2022 Glucose [Mass/Vol] 90 mg/dL Normal 70-108 [facility] Comment on above: Performed By: #### C BCND, PT, APTT, BMP, ANION, EGFR1 #### [facility] [address] [place] [address] Glucose [Mass/Vol] 88 mg/dL Normal 70-108 [facility] Comment on above: Performed By: #### P OCGL #### [facility] [address] [place] [address] Glucose [Mass/Vol] 99 mg/dL Normal 70-108 [facility] Comment on above: Performed By: #### P OCGL #### [facility] [address] [place] [address] POCT glucoseon 02-17-2022 Glucose [Mass/Vol] 90 mg/dL 70 - 108 mg/dl [facility] Comment on above: Performed at [facility] [address] [place] [address] [facility] Glucose [Mass/Vol] 88 mg/dL 70 - 108 mg/dl [facility] Comment on above: Performed at [facility] [address] [place] [address] [facility] Glucose [Mass/Vol] 99 mg/dL 70 - 108 mg/dl [facility] Comment on above: Performed at [facility] [address] [place] [address] [facility] GLUCOSE POCon 02-16-2022 Glucose [Mass/Vol] 116 mg/dL High 70-108 [facility] Comment on above: Performed By: #### P OCGL ####[facility] [address] [place] [address] Glucose [Mass/Vol] 121 mg/dL High 70-108 [facility] Comment on above: Performed By: #### P OCGL #### [facility] [facility] [address] [place] [address] Glucose [Mass/Vol] 89 mg/dL Normal 70-108 [facility] Comment on above: Performed By: #### C BCND, PT, APTT, BMP, ANION, EGFR1 #### [facility] [employer] [facility] [address] [place] [address] Glucose [Mass/Vol] 95 mg/dL Normal 70-108 [facility] Comment on above: Performed By: #### C BCND, PT, APTT, BMP, ANION, EGFR1 #### [facility] [address] [place] [address] Glucose [Mass/Vol] 85 mg/dL Normal 70-108 [facility] Comment on above: Performed By: #### C BCND, PT, APTT, BMP, ANION, EGFR1 #### [facility] [facility] [address] [place] [address] POCT Glucoseon 02-16-2022 Glucose [Mass/Vol] 121 mg/dL High 70 - 108 mg/dl [facility] Comment on above: Performed at [facility] [address] [place] [address] Interpretation and review of laboratory results Abnormal [facility] POCT glucoseon 02-16-2022 Glucose [Mass/Vol] 116 mg/dL High 70 - 108 mg/dl [facility] Comment on above: Performed at [facility] [address] [place] [address] Interpretation and review of laboratory results Abnormal [facility] Glucose [Mass/Vol] 89 mg/dL 70 - 108 mg/dl [facility] Comment on above: Performed at [facility] [address] [place] [address] Glucose [Mass/Vol] 95 mg/dL 70 - 108 mg/dl [facility] Comment on above: Performed at [facility] [address] [place] [address] Glucose [Mass/Vol] 85 mg/dL 70 - 108 mg/dl [facility] Comment on above: Performed at [facility] [address] [place] [address] ANION GAPon 02-15-2022 Anion gap [Moles/Vol] 8.0 mmol/L Normal 8.0-16.0 [facility] Comment on above: Result Comment: ANIO N GAP = Sodium -(Chloride + CO2) Performed By: #### C BCND, BMP, ANION, EGFR1 ####[facility] [address] [place] [address] Anion Gapon 02-15-2022 Anion gap [Moles/Vol] 8.0 mmol/L 8.0 - 16.0 meq/L [facility] Comment on above: ANION GAP = Sodium - (Chloride + CO2) Performed at [facility] [address] [place] [address] BASIC METABOL PANELon 2021 Calcium [Mass/Vol] 8.1 mg/dL Low 8.5-10.5 [facility] Comment on above: Performed By: #### P OCGL #### [address] [address] Chloride [Moles/Vol] 105 mmol/L Normal 98-111 [facility] Comment on above: Performed By: #### P OCGL #### [address] [address] CO2 [Moles/Vol] 25 mmol/L Normal 23-33 [facility] Comment on above: Performed By: #### P OCGL #### [facility] [address] [place] [address] Creatinine [Mass/Vol] 1.0 mg/dL Normal 0.4-1.2 [facility] Comment on above: Performed By: #### P OCGL #### [address] [address] Glucose [Mass/Vol] 101 mg/dL Normal 70-108 [facility] Comment on above: Performed By: #### P OCGL #### [address] [address] Potassium [Moles/Vol] 3.9 mmol/L Normal 3.5-5.2 [facility] Comment on above: Performed By: #### P OCGL #### [facility] [address] [place] [address] Sodium [Moles/Vol] 138 mmol/L Normal 135-145 [facility] Comment on above: Performed By: #### P OCGL #### [facility] [address] [place] [address] Urea nitrogen [Mass/Vol] 19 mg/dL Normal 7-22 [facility] Comment on above: Performed By: #### P OCGL #### [facility] [facility] [address] [place] [address] Basic Metabolic Panelon 01-19 Calcium [Mass/Vol] 8.1 mg/dL Low 8.5 - 10. 5 mg/dL [facility] Comment on above: Performed at [facility] [address] [place] [address] Chloride [Moles/Vol] 105 mmol/L 98 - 11 1 meq/L [facility] CO2 [Moles/Vol] 25 mmol/L 23 - 33 meq/L [facility] Creatinine [Mass/Vol] 1 mg/dL 0.4 - 1.2 mg/dL [facility] Glucose [Mass/Vol] 101 mg/dL 70 - 108 mg/dL [facility] Potassium [Moles/Vol] 3.9 mmol/L 3.5 - 5.2 meq/L [facility] Sodium [Moles/Vol] 138 mmol/L 135 - 145 meq/L [facility] Urea nitrogen (BldV) [Mass/Vol] 19 mg/dL 7 - 22 mg/dL [facility] CBCon 02-15-2022 Erythrocyte distribution width (RBC) [Ratio] 13.3 % 11.5 - 14.5 % [facility] Erythrocyte distribution width (RBC) [Ratio] 46.9 fL High 35.0 - 45.0 fL [facility] Hematocrit (Bld) [Volume fraction] 30.1 % Low 42.0 - 52.0 % [facility] Hemoglobin.gastrointes tinal spec 1 Ql (Stl) 9.5 Low [facility] Interpretation and review of laboratory results Abnormal [facility] MCH (RBC) [Entitic mass] 30.4 pg 26.0 - 33.0 pg [facility] MCHC (RBC) [Mass/Vol] 31.6 g/dL Low [facility] MCV (RBC) [Entitic vol] 96.2 fL High 80.0 - 94.0 fL [facility] Platelet mean volume (Bld) [Entitic vol] 11.7 fL 9.4 - 12.4 fL [facility] Comment on above: Performed at [facility] [address] [place] [address] Platelets (Bld) [#/Vol] 159 10*3/uL [facility] RBC (Bld) [#/Vol] 3.13 10*6/uL [facility] WBC (Bld) [#/Vol] 4.3 10*3/uL [facility] CBC NO DIFFERENTIALon 2021 Erythrocyte distribution width (RBC) [Ratio] 13.3 % Normal 11.5-14.5 [facility] Comment on above: Performed By: #### P OCGL #### [address] [address] Hematocrit (Bld) [Volume fraction] 30.1 % Low 42.0-52.0 [facility] Comment on above: Performed By: #### P OCGL #### [address] [address] Hemoglobin (Bld) [Mass/Vol] 9.5 g/dL Low 14.0-18.0 [facility] Comment on above: Performed By: #### P OCGL #### [address] [address] MCH (RBC) [Entitic mass] 30.4 pg Normal 26.0-33.0 [facility] Comment on above: Performed By: #### P OCGL #### [address] [address] MCHC (RBC) [Mass/Vol] 31.6 g/dL Low 32.2-35.5 [facility] Comment on above: Performed By: #### P OCGL #### [address] [address] MCV (RBC) [Entitic vol] 96.2 fL High 80.0-94.0 [facility] Comment on above: Performed By: #### P OCGL #### [address] [address] PLATELET 159 thou/mm3 Normal 130-400 [facility] Comment on above: Performed By: #### P OCGL #### [address] [address] Platelet mean volume (Bld) [Entitic vol] 11.7 fL Normal 9.4-12.4 [facility] Comment on above: Performed By: #### P OCGL #### [facility] [address] [place] [address] RBC 3.13 mill/mm3 Low 4.70-6.10 [facility] Comment on above: Performed By: #### P OCGL #### [facility] [address] [place] [address] RDW-SD 46.9 fL High 35.0-45.0 [facility] Comment on above: Performed By: #### P OCGL #### [facility] [address] [place] [address] WBC 4.3 thou/mm3 Low 4.8-10.8 [facility] Comment on above: Performed By: #### P OCGL #### [facility] [address] [place] [address] GFR, ESTIMATEDon 02-15-2022 GFR/1.73 sq M.predicted MDRD (S/P/Bld) [Vol rate/Area] 75 mL/min/{1.73_m2} Abnormal [facility] Comment on above: Result Comment: Stag [...] By: #### C BCND, BMP, ANION, EGFR1 ####[facility] [address] [place] [address] GLUCOSE POCon 02-15-2022 Glucose [Mass/Vol] 85 mg/dL Normal 70-108 [facility] Comment on above: Performed By: #### P OCGL #### [facility] [address] [place] [address] Glucose [Mass/Vol] 98 mg/dL Normal 70-108 [facility] Comment on above: Performed By: #### C BCND, PT, APTT, BMP, ANION, EGFR1 #### [facility] [address] [place] [address] Glucose [Mass/Vol] 101 mg/dL Normal 70-108 [facility] Comment on above: Performed By: #### P OCGL ####[facility] [address] [place] [address] Glucose [Mass/Vol] 89 mg/dL Normal 70-108 [facility] Comment on above: Performed By: #### P OCGL #### [facility] [address] [place] [address] Glomerular Filtration Rate, Estimatedon 02-15-2022 GFR/1.73 sq M.predicted MDRD (S/P/Bld) [Vol rate/Area] 75 mL/min/{1.73_m2} Abnormal ml/min/1.7 3m2 [facility] Comment on above: Stage Description GF R, [...] Vol. 139 (2) pg 137-147. Performed at [facility] [address] [place] [address] No Panel Informationon 02-15 Interpretation and review of laboratory results Abnormal [facility] POCT glucoseon 02-15-2022 Glucose [Mass/Vol] 85 mg/dL 70 - 108 mg/dl [facility] Comment on above: Performed at [facility] [address] Glucose [Mass/Vol] 98 mg/dL 70 - 108 mg/dl [facility] Comment on above: Performed at [facility] [address] Glucose [Mass/Vol] 101 mg/dL 70 - 108 mg/dl [facility] Comment on above: Performed at [facility] [address] [place] [address] Health Glucose [Mass/Vol] 89 mg/dL 70 - 108 mg/dl [facility] Comment on above: Performed at [facility] [address] [place] [address] GLUCOSE POCon 02-14-2022 Glucose [Mass/Vol] 90 mg/dL Normal 70-108 [facility] Comment on above: Performed By: #### C BCND, PT, APTT, BMP, ANION, EGFR1 #### [facility] [address] [place] [address] Glucose [Mass/Vol] 100 mg/dL Normal 70-108 [facility] Comment on above: Performed By: #### C BCND, PT, APTT, BMP, ANION, EGFR1 #### [facility] [address] [place] [address] Glucose [Mass/Vol] 86 mg/dL Normal 70-108 [facility] Comment on above: Performed By: #### C BCND, PT, APTT, BMP, ANION, EGFR1 #### [facility] [address] [place] [address] Glucose [Mass/Vol] 94 mg/dL Normal 70-108 [facility] Comment on above: Performed By: #### P OCGL ####[facility] [address] [place] [address] Glucose [Mass/Vol] 79 mg/dL Normal 70-108 [facility] Comment on above: Performed at [facility] [address] [place] [address] Performed By: #### P OCGL #### [facility] [address] [address] No Panel Informationon 02-14 [facility] POCT glucoseon 02-14-2022 Glucose [Mass/Vol] 90 mg/dL 70 - 108 mg/dl [facility] Comment on above: Performed at [facility] [address] [place] [address] Glucose [Mass/Vol] 100 mg/dL 70 - 108 mg/dl [facility] Comment on above: Performed at [facility] [address] [place] [address] Glucose [Mass/Vol] 86 mg/dL 70 - 108 mg/dl [facility] Comment on above: Performed at [facility] [address] [place] [address] [facility] Glucose [Mass/Vol] 94 mg/dL 70 - 108 mg/dl [facility] Comment on above: Performed at [facility] [address] [place] [address] GLUCOSE POCon 02-13-2022 Glucose [Mass/Vol] 96 mg/dL Normal 70-108 [facility] Comment on above: Performed By: #### P OCGL #### [address] [address] Glucose [Mass/Vol] 85 mg/dL Normal 70-108 [facility] Comment on above: Performed By: #### C BCND, PT, APTT, BMP, ANION, EGFR1 #### [address] [address] Glucose [Mass/Vol] 95 mg/dL Normal 70-108 [facility] Comment on above: Performed By: #### C BCND, PT, APTT, BMP, ANION, EGFR1 #### [facility] [address] [place] [address] Glucose [Mass/Vol] 82 mg/dL Normal 70-108 [facility] Comment on above: Performed By: #### C BCND, PT, APTT, BMP, ANION, EGFR1 #### [address] [address] POCT glucoseon 02-13-2022 Glucose [Mass/Vol] 96 mg/dL 70 - 108 mg/dl [facility] Comment on above: Performed at [facility] [address] [place] [address] [facility] Glucose [Mass/Vol] 85 mg/dL 70 - 108 mg/dl [facility] Comment on above: Performed at [facility] [address] [place] [address] [facility] Glucose [Mass/Vol] 95 mg/dL 70 - 108 mg/dl [facility] Comment on above: Performed at [facility] [address] [place] [address] [facility] Glucose [Mass/Vol] 82 mg/dL 70 - 108 mg/dl [facility] Comment on above: Performed at [facility] [address] [place] [address] [facility] ANION GAPon 02-12-2022 Anion gap [Moles/Vol] 9.0 mmol/L Normal 8.0-16.0 [facility] Comment on above: Result Comment: ANIO N GAP = Sodium -(Chloride + CO2) Performed By: #### P OCGL #### [facility] [address] [place] [address] Anion Gapon 02-12-2022 Anion gap [Moles/Vol] 9.0 mmol/L 8.0 - 16.0 meq/L [facility] Comment on above: ANION GAP = Sodium - (Chloride + CO2) Performed at [facility] [address] [place] [address] BASIC METABOL PANELon 2021 Calcium [Mass/Vol] 8.2 mg/dL Low 8.5-10.5 [facility] Comment on above: Performed By: #### P OCGL #### [facility] [address] [place] [address] Chloride [Moles/Vol] 105 mmol/L Normal 98-111 [facility] Comment on above: Performed By: #### P OCGL #### [employer] [facility] [address] [place] [address] CO2 [Moles/Vol] 24 mmol/L Normal 23-33 [facility] Comment on above: Performed By: #### P OCGL #### [facility] [address] [place] [address] Creatinine [Mass/Vol] 0.9 mg/dL Normal 0.4-1.2 [facility] Comment on above: Performed By: #### P OCGL #### [facility] [address] [place] [address] Glucose [Mass/Vol] 66 mg/dL Low 70-108 [facility] Comment on above: Performed By: #### P OCGL #### [facility] [address] [place] [address] Potassium [Moles/Vol] 3.9 mmol/L Normal 3.5-5.2 [facility] Comment on above: Performed By: #### P OCGL #### [facility] [address] [place] [address] Sodium [Moles/Vol] 138 mmol/L Normal 135-145 [facility] Comment on above: Performed By: #### P OCGL #### [facility] [address] [place] [address] Urea nitrogen [Mass/Vol] 17 mg/dL Normal 7-22 [facility] Comment on above: Performed By: #### P OCGL #### [facility] [address] [place] [address] Basic Metabolic Panelon 01-18 Calcium [Mass/Vol] 8.2 mg/dL Low 8.5 - 10. 5 mg/dL [facility] Comment on above: Performed at [facility] [address] [place] [address] Chloride [Moles/Vol] 105 mmol/L 98 - 11 1 meq/L [facility] CO2 [Moles/Vol] 24 mmol/L 23 - 33 meq/L [facility] Creatinine [Mass/Vol] 0.9 mg/dL 0.4 - 1.2 mg/dL [facility] Glucose [Mass/Vol] 66 mg/dL Low 70 - 108 mg/dL [facility] Potassium [Moles/Vol] 3.9 mmol/L 3.5 - 5.2 meq/L [facility] Sodium [Moles/Vol] 138 mmol/L 135 - 145 meq/L [facility] Urea nitrogen (BldV) [Mass/Vol] 17 mg/dL 7 - 22 mg/dL [facility] CBCon 02-12-2022 Erythrocyte distribution width (RBC) [Ratio] 13.8 % 11.5 - 14.5 % [facility] Erythrocyte distribution width (RBC) [Ratio] 49.3 fL High 35.0 - 45.0 fL [facility] Hematocrit (Bld) [Volume fraction] 32.0 % Low 42.0 - 52.0 % [facility] Hemoglobin.gastrointes tinal spec 1 Ql (Stl) 9.8 Low [facility] Interpretation and review of laboratory results Abnormal [facility] MCH (RBC) [Entitic mass] 29.8 pg 26.0 - 33.0 pg [facility] MCHC (RBC) [Mass/Vol] 30.6 g/dL Low [facility] MCV (RBC) [Entitic vol] 97.3 fL High 80.0 - 94.0 fL [facility] Platelet mean volume (Bld) [Entitic vol] 12.3 fL 9.4 - 12.4 fL [facility] Comment on above: Performed at [facility] [address] [place] [address] Platelets (Bld) [#/Vol] 142 10*3/uL [facility] RBC (Bld) [#/Vol] 3.29 10*6/uL Low [facility] WBC (Bld) [#/Vol] 5.1 10*3/uL [facility] CBC NO DIFFERENTIALon 2021 Erythrocyte distribution width (RBC) [Ratio] 13.8 % Normal 11.5-14.5 [facility] Comment on above: Performed By: #### P OCGL #### [address] [address] Hematocrit (Bld) [Volume fraction] 32.0 % Low 42.0-52.0 [facility] Comment on above: Performed By: #### P OCGL #### [address] [address] Hemoglobin (Bld) [Mass/Vol] 9.8 g/dL Low 14.0-18.0 [facility] Comment on above: Performed By: #### P OCGL #### [address] [address] MCH (RBC) [Entitic mass] 29.8 pg Normal 26.0-33.0 [facility] Comment on above: Performed By: #### P OCGL #### [facility] [address] [address] MCHC (RBC) [Mass/Vol] 30.6 g/dL Low 32.2-35.5 [facility] Comment on above: Performed By: #### P OCGL #### [address] [address] MCV (RBC) [Entitic vol] 97.3 fL High 80.0-94.0 [facility] Comment on above: Performed By: #### P OCGL #### [facility] [place] [address] PLATELET 142 thou/mm3 Normal 130-400 [facility] Comment on above: Performed By: #### P OCGL #### [address] [address] Platelet mean volume (Bld) [Entitic vol] 12.3 fL Normal 9.4-12.4 [facility] Comment on above: Performed By: #### P OCGL #### [place] [id number] RBC 3.29 mill/mm3 Low 4.70-6.10 [facility] Comment on above: Performed By: #### P OCGL #### [place] [address] RDW-SD 49.3 fL High 35.0-45.0 [facility] Comment on above: Performed By: #### P OCGL #### [place] [id number] WBC 5.1 thou/mm3 Normal 4.8-10.8 [facility] Comment on above: Performed By: #### P OCGL #### [address] [address] GFR, ESTIMATEDon 02-12-2022 GFR/1.73 sq M.predicted MDRD (S/P/Bld) [Vol rate/Area] 85 mL/min/{1.73_m2} Abnormal [facility] Comment on above: Result Comment: Lilliam [...] 137-147. Performed By: #### P OCGL #### [address] [address] GLUCOSE POCon 02-12-2022 Glucose [Mass/Vol] 95 mg/dL Normal 70-108 [facility] Comment on above: Performed By: #### P OCGL #### [facility] [address] [place] [address] Glucose [Mass/Vol] 84 mg/dL Normal 70-108 [facility] Comment on above: Performed By: #### C BCND, PT, APTT, BMP, ANION, EGFR1 #### [facility] [address] [place] [address] Glucose [Mass/Vol] 86 mg/dL Normal 70-108 [facility] Comment on above: Performed By: #### P OCGL ####[employer] [facility] [address] [place] [address] Glucose [Mass/Vol] 90 mg/dL Normal 70-108 [facility] Comment on above: Performed By: #### P OCGL ####[employer] [address] [place] [address] Glomerular Filtration Rate, Estimatedon 02-12-2022 GFR/1.73 sq M.predicted MDRD (S/P/Bld) [Vol rate/Area] 85 mL/min/{1.73_m2} Abnormal ml/min/1.7 3m2 [facility] Comment on above: Stage Description GF R, [...] Vol. 139 (2) pg 137-147. Performed at [facility] [address] [place] [address] No Panel Informationon 02-12 Interpretation and review of laboratory results Abnormal [facility] POCT glucoseon 02-12-2022 Glucose [Mass/Vol] 95 mg/dL 70 - 108 mg/dl [facility] Comment on above: Performed at [facility] [address] [place] [address] [facility] Glucose [Mass/Vol] 84 mg/dL 70 - 108 mg/dl [facility] Comment on above: Performed at [facility] [address] [place] [address] Glucose [Mass/Vol] 86 mg/dL 70 - 108 mg/dl [facility] Comment on above: Performed at [facility] [address] [place] [address] Glucose [Mass/Vol] 90 mg/dL 70 - 108 mg/dl [facility] Comment on above: Performed at [facility] [address] [place] [address] CBCon 02-11-2022 Erythrocyte distribution width (RBC) [Ratio] 13.7 % 11.5 - 14.5 % [facility] Erythrocyte distribution width (RBC) [Ratio] 48.8 fL High 35.0 - 45.0 fL [facility] Hematocrit (Bld) [Volume fraction] 31.5 % Low 42.0 - 52.0 % [facility] Hemoglobin.gastrointes tinal spec 1 Ql (Stl) 9.8 Low [facility] th Interpretation and review of laboratory results Abnormal [facility] MCH (RBC) [Entitic mass] 30.2 pg 26.0 - 33.0 pg [facility] MCHC (RBC) [Mass/Vol] 31.1 g/dL Low [facility] MCV (RBC) [Entitic vol] 97.2 fL High 80.0 - 94.0 fL [facility] Platelet mean volume (Bld) [Entitic vol] 12.8 fL High 9.4 - 12.4 fL [facility] Comment on above: Performed at [facility] [address] [place] [address] Platelets (Bld) [#/Vol] 122 10*3/uL Low [facility] RBC (Bld) [#/Vol] 3.24 10*6/uL Low [facility] WBC (Bld) [#/Vol] 5.7 10*3/uL [facility] CBC NO DIFFERENTIALon 2021 Erythrocyte distribution width (RBC) [Ratio] 13.7 % Normal 11.5-14.5 [facility] Comment on above: Performed By: #### P OCGL #### [facility] [address] [place] [address] Hematocrit (Bld) [Volume fraction] 31.5 % Low 42.0-52.0 [facility] Comment on above: Performed By: #### P OCGL #### [place] [address] Hemoglobin (Bld) [Mass/Vol] 9.8 g/dL Low 14.0-18.0 [facility] Comment on above: Performed By: #### P OCGL #### [place] [address] MCH (RBC) [Entitic mass] 30.2 pg Normal 26.0-33.0 [facility] Comment on above: Performed By: #### P OCGL #### [place] [address] MCHC (RBC) [Mass/Vol] 31.1 g/dL Low 32.2-35.5 [facility] Comment on above: Performed By: #### P OCGL #### [place] [address] MCV (RBC) [Entitic vol] 97.2 fL High 80.0-94.0 [facility] Comment on above: Performed By: #### P OCGL #### [place] [address] PLATELET 122 thou/mm3 Low 130-400 [facility] Comment on above: Performed By: #### P OCGL #### [place] [address] Platelet mean volume (Bld) [Entitic vol] 12.8 fL High 9.4-12.4 [facility] Comment on above: Performed By: #### P OCGL #### [place] [id number] RBC 3.24 mill/mm3 Low 4.70-6.10 [facility] Comment on above: Performed By: #### P OCGL #### [place] [id number] RDW-SD 48.8 fL High 35.0-45.0 [facility] Comment on above: Performed By: #### P OCGL #### [facility] [address] [place] [address] WBC 5.7 thou/mm3 Normal 4.8-10.8 [facility] Comment on above: Performed By: #### P OCGL #### [address] [address] GLUCOSE POCon 02-11-2022 Glucose [Mass/Vol] 116 mg/dL High 70-108 [facility] Comment on above: Performed By: #### P OCGL #### [facility] [address] [place] [address] Glucose [Mass/Vol] 87 mg/dL Normal 70-108 [facility] Comment on above: Performed By: #### C BCND, PT, APTT, BMP, ANION, EGFR1 #### [address] [address] Glucose [Mass/Vol] 90 mg/dL Normal 70-108 [facility] Comment on above: Performed By: #### P OCGL #### [facility] [address] [place] [address] Glucose [Mass/Vol] 112 mg/dL High 70-108 [facility] Comment on above: Performed By: #### C BCND, PT, APTT, BMP, ANION, EGFR1 #### [address] [address] POCT Glucoseon 02-11-2022 Glucose [Mass/Vol] 87 mg/dL 70 - 108 mg/dl [facility] Comment on above: Performed at [facility] [address] [place] [address] [facility] Glucose [Mass/Vol] 90 mg/dL 70 - 108 mg/dl [facility] Comment on above: Performed at [facility] [address] [place] [address] [place] [address] Glucose [Mass/Vol] 112 mg/dL High 70 - 108 mg/dl [facility] Comment on above: Performed at [facility] [address] [place] [address] Interpretation and review of laboratory results Abnormal [facility] POCT glucoseon 02-11-2022 Glucose [Mass/Vol] 116 mg/dL High 70 - 108 mg/dl [facility] Comment on above: Performed at [facility] [address] [place] [address] Interpretation and review of laboratory results Abnormal [facility] VITAMIN B12 FOLATEon 022 Cobalamin (Vitamin B12) [Mass/Vol] 386 pg/mL Normal 211-911 [facility] Comment on above: Performed By: #### C BCND, PT, APTT, BMP, ANION, EGFR1 #### [address] [address] FOLATE 7.5 ng/mL Normal 4.8-24.2 [facility] Comment on above: Performed By: #### C BCND, PT, APTT, BMP, ANION, EGFR1 #### [address] [address] Vitamin B12 & Folateon 02-11 Cobalamin (Vitamin B12) [Mass/Vol] 386 pg/mL 211 - 911 pg/mL [facility] Folate 7.5 ng/mL 4.8 - 24.2 ng/mL [facility] Comment on above: Performed at [facility] [address] [place] [address] CORTISOLon 02-10-2022 CORTISOL SPECIMEN 60 Minute Normal [facility] Comment on above: Performed By: #### P OCGL #### [place] [address] ECHO Complete 2D W Doppler W Coloron 02-10-2022 Transthoracic Echocardiography Report (TTE) Demographics Patient Name SUNNY Cox Gender Male MR # [id number] Race Ethnicity Room Number 0025 Date of Study 02/10/2022 Number Date of 1960 Referring Physician Bala Schrader MD Age 61 year(s) [employer] Lyn Prince RDCS Interpreting Beata Leahy MD [...] Name SUNNY Cox Gender Male MR # [id number] Race Ethnicity Room Number 0025 Date of Study 02/10/2022 Number Date of 1960 Referring Physician Bala Schrader MD Age 61 year(s) [employer] Architect Lyn Prince [facility] Interpreting Beata Leahy MD Physician Procedure [...] E/E' lateral: 7.08 MR Velocity: 463 cm/s [id number]%3d%3d [employer] Phone: ECHO Complete 2D W Doppler W ColorOrdered By: Armond Cota on 02-10-2022 [employer] Phone: ECHOCARDIOGRAM COMPLETE 2D W DOPPLER W COLORon 02-10-2022 ECHOCARDIOGRAM COMPLETE 2D W DOPPLER W COLOR Transthoracic Echocardiography Report (TTE) Demographics Patient Name SUNNY Cox Gender Male MR # [id number] Race Ethnicity Room Number 0025 Date of Study 02/10/2022 Number Date of 1960 Referring Physician Bala Schrader MD Age 61 year(s) [employer] Architect Lyn Prince [facility] Interpreting Beata Leahy MD Physician Procedure [...] E/E' lateral: 7.08 MR Velocity: 463 cm/s [email or web address]?[id number] Y6ouHmv%3d%3d Normal [facility] GLUCOSE POCon 02-10-2022 Glucose [Mass/Vol] 113 mg/dL High 70-108 [facility] Comment on above: Performed By: #### C BCND, PT, APTT, BMP, ANION, EGFR1 #### [facility] [address] [place] [address] Glucose [Mass/Vol] 110 mg/dL High 70-108 [facility] Comment on above: Performed By: #### P OCGL #### [facility] [address] [place] [address] Glucose [Mass/Vol] 136 mg/dL High 70-108 [facility] Comment on above: Performed By: #### C BCND, PT, APTT, BMP, ANION, EGFR1 #### [facility] [address] [place] [address] Glucose [Mass/Vol] 125 mg/dL High 70-108 [facility] Comment on above: Performed By: #### P OCGL ####[employer] [address] [place] [address] POCT Glucoseon 02-10-2022 Glucose [Mass/Vol] 113 mg/dL High 70 - 108 mg/dl [facility] Comment on above: Performed at [facility] [address] [place] [address] Interpretation and review of laboratory results Abnormal [facility] Glucose [Mass/Vol] 110 mg/dL High 70 - 108 mg/dl [facility] Comment on above: Performed at [facility] [address] [place] [address] Interpretation and review of laboratory results Abnormal [facility] Glucose [Mass/Vol] 136 mg/dL High 70 - 108 mg/dl [facility] Comment on above: Performed at [facility] [address] [place] [address] Interpretation and review of laboratory results Abnormal [facility] Glucose [Mass/Vol] 125 mg/dL High 70 - 108 mg/dl [facility] Comment on above: Performed at [facility] [address] [place] [address] Interpretation and review of laboratory results Abnormal [facility] TSHon 02-10-2022 Interpretation and review of laboratory results Abnormal [facility] TSH Qn 0.354 m[IU]/L Low [facility] Comment on above: Performed at [facility] [address] [place] [address] TSH THIRD GENERATIONon 02-10 TSH THIRD GENERATION 0.354 uIU/mL Low 0.400-4 .20 0 [facility] Comment on above: Performed By: #### P OCGL #### [facility] [address] [place] [address] CBC WITH DIFFERENTIALon 01-18 ABS BASOPHILS 0.0 thou/mm3 Normal 0.0-0.1 [facility] Comment on above: Performed By: #### C BCND, PT, APTT, BMP, ANION, EGFR1 #### [facility] [address] [place] [address] ABS EOSINOPHILS 0.1 thou/mm3 Normal 0.0-0.4 [facility] Comment on above: Performed By: #### C BCND, PT, APTT, BMP, ANION, EGFR1 #### [address] [address] ABS IMMATURE GRANS (IG) 0.02 thou/mm3 Normal 0.00-0.07 [facility] Comment on above: Performed By: #### C BCND, PT, APTT, BMP, ANION, EGFR1 #### [address] [address] ABS LYMPHOCYTES 1.3 thou/mm3 Normal 1.0-4.8 [facility] Comment on above: Performed By: #### C BCND, PT, APTT, BMP, ANION, EGFR1 #### [address] [address] ABS MONOCYTES 0.6 thou/mm3 Normal 0.4-1.3 [facility] Comment on above: Performed By: #### C BCND, PT, APTT, BMP, ANION, EGFR1 #### [address] [address] ABS NEUTROPHILS 4.3 thou/mm3 Normal 1.8-7.7 [facility] Comment on above: Performed By: #### C BCND, PT, APTT, BMP, ANION, EGFR1 #### [address] [address] Basophils/100 WBC (Bld) 0.3 % Normal [facility] Comment on above: Performed By: #### C BCND, PT, APTT, BMP, ANION, EGFR1 #### [address] [address] Eosinophils/100 WBC (Bld) 1.4 % Normal [facility] Comment on above: Performed By: #### C BCND, PT, APTT, BMP, ANION, EGFR1 #### [place] [address] Erythrocyte distribution width (RBC) [Ratio] 13.3 % Normal 11.5-14.5 [facility] Comment on above: Performed By: #### C BCND, PT, APTT, BMP, ANION, EGFR1 #### [place] [address] Hematocrit (Bld) [Volume fraction] 34.3 % Low 42.0-52.0 [facility] Comment on above: Performed By: #### C BCND, PT, APTT, BMP, ANION, EGFR1 #### [place] [address] Hemoglobin (Bld) [Mass/Vol] 10.8 g/dL Low 14.0-18.0 [facility] Comment on above: Performed By: #### C BCND, PT, APTT, BMP, ANION, EGFR1 #### [place] [address] IMMATURE GRANS (IG) 0.3 % Normal [facility] Comment on above: Performed By: #### C BCND, PT, APTT, BMP, ANION, EGFR1 #### [place] [address] Lymphocytes/100 WBC (Bld) 20.2 % Normal [facility] Comment on above: Performed By: #### C BCND, PT, APTT, BMP, ANION, EGFR1 #### [place] [address] MCH (RBC) [Entitic mass] 30.2 pg Normal 26.0-33.0 [facility] Comment on above: Performed By: #### C BCND, PT, APTT, BMP, ANION, EGFR1 #### [place] [address] MCHC (RBC) [Mass/Vol] 31.5 g/dL Low 32.2-35.5 [facility] Comment on above: Performed By: #### C BCND, PT, APTT, BMP, ANION, EGFR1 #### [facility] [address] [place] [address] MCV (RBC) [Entitic vol] 95.8 fL High 80.0-94.0 [facility] Comment on above: Performed By: #### C BCND, PT, APTT, BMP, ANION, EGFR1 #### [facility] [address] [place] [address] Monocytes/100 WBC (Bld) 9.5 % Normal [facility] Comment on above: Performed By: #### C BCND, PT, APTT, BMP, ANION, EGFR1 #### [address] [address] Neutrophils/100 WBC (Bld) 68.3 % Normal [facility] Comment on above: Performed By: #### C BCND, PT, APTT, BMP, ANION, EGFR1 #### [address] [address] NRBC 0 /100 wbc Normal [facility] Comment on above: Performed By: #### C BCND, PT, APTT, BMP, ANION, EGFR1 #### [facility] [address] [place] [address] PLATELET 98 thou/mm3 Low 130-400 [facility] Comment on above: Performed By: #### C BCND, PT, APTT, BMP, ANION, EGFR1 #### [facility] [address] [place] [address] Platelet mean volume (Bld) [Entitic vol] 12.9 fL High 9.4-12.4 [facility] Comment on above: Performed By: #### C BCND, PT, APTT, BMP, ANION, EGFR1 #### [facility] [address] [place] [address] RBC 3.58 mill/mm3 Low 4.70-6.10 [facility] Comment on above: Performed By: #### C BCND, PT, APTT, BMP, ANION, EGFR1 #### [facility] [address] [place] [address] RDW-SD 47.0 fL High 35.0-45.0 [facility] Comment on above: Performed By: #### C BCND, PT, APTT, BMP, ANION, EGFR1 #### [facility] [address] [place] [address] WBC 6.3 thou/mm3 Normal 4.8-10.8 [facility] Comment on above: Performed By: #### C BCND, PT, APTT, BMP, ANION, EGFR1 #### [facility] [address] [place] [address] CBC with Auto Differentialon 02-09-2022 Basophils (Bld) [#/Vol] 0.0 10*3/uL [facility] Basophils/100 WBC (Bld) 0.3 % [facility] Eosinophils Absolute 0.1 [facility] Eosinophils/100 WBC (Bld) 1.4 % [facility] Erythrocyte distribution width (RBC) [Ratio] 13.3 % 11.5 - 14.5 % [facility] Erythrocyte distribution width (RBC) [Ratio] 47 fL High 35.0 - 45.0 fL [facility] Hematocrit (Bld) [Volume fraction] 34.3 % Low 42.0 - 52.0 % [facility] Hemoglobin.gastrointes tinal spec 1 Ql (Stl) 10.8 Low [facility] Immature Grans (Abs) 0.02 [facility] Immature granulocytes/100 WBC (Bld) 0.3 % [facility] Interpretation and review of laboratory results Abnormal [facility] Lymphocytes Absolute 1.3 [facility] Lymphocytes/100 WBC (Bld) 20.2 % [facility] MCH (RBC) [Entitic mass] 30.2 pg 26.0 - 33.0 pg [facility] MCHC (RBC) [Mass/Vol] 31.5 g/dL Low [facility] MCV (RBC) [Entitic vol] 95.8 fL High 80.0 - 94.0 fL [facility] Monocytes Absolute 0.6 [facility] Monocytes/100 WBC (Bld) 9.5 % [facility] nRBC 0 /100 wbc [facility] Comment on above: Performed at [facility] [address] [place] [address] Platelet mean volume (Bld) [Entitic vol] 12.9 fL High 9.4 - 12.4 fL [facility] Platelets (Bld) [#/Vol] 98 10*3/uL Low [facility] RBC (Bld) [#/Vol] 3.58 10*6/uL [facility] Segmented neutrophils/100 WBC (Bld) 68.3 % [facility] Segs Absolute 4.3 [facility] h WBC (Bld) [#/Vol] 6.3 10*3/uL [facility] CORTISOLon 02-09-2022 CORTISOL 15.55 ug/dL Normal [facility] Comment on above: Result Comment: Refe rence ranges AM serum (7-9AM): 4.82-19.5 ug/dl PM serum (3-5PM): 2.47-11.9 ug/dl Performed By: #### P OCGL #### [facility] [address] [place] [address] CORTISOL 21.14 ug/dL Normal [facility] Comment on above: Result Comment: Refe rence ranges AM serum (7-9AM): 4.82-19.5 ug/dl PM serum (3-5PM): 2.47-11.9 ug/dl Performed By: #### P OCGL #### [facility] [address] [place] [address] CORTISOL SPECIMEN 30 Minute Normal [facility] Comment on above: Performed By: #### P OCGL #### [facility] [address] [place] [address] CORTISOL SPECIMEN Baseline Normal [facility] Comment on above: Performed By: #### P OCGL #### [facility] [address] [place] [address] CORTISOL 7.85 ug/dL Normal [facility] Comment on above: Result Comment: Refe rence ranges AM serum (7-9AM): 4.82-19.5 ug/dl PM serum (3-5PM): 2.47-11.9 ug/dl Performed By: #### P OCGL #### [facility] [address] [place] [address] CORTISOL SPECIMEN AM Specimen Normal [facility] Comment on above: Performed By: #### P OCGL #### [facility] [address] [place] [address] CORTISOL 4.35 ug/dL Normal [facility] Comment on above: Result Comment: Refe rence ranges AM serum (7-9AM): 4.82-19.5 ug/dl PM serum (3-5PM): 2.47-11.9 ug/dl Performed By: #### P OCGL #### [facility] [address] [place] [address] Cortisol Totalon 02-09-2022 Cortisol 21.14 ug/dL [facility] Comment on above: Reference ranges AM serum (7-9AM): 4.82-19.5 ug/dl PM serum (3-5PM): 2.47-11.9 ug/dl Cort[facility] Collection Info 60 Minute [employer] [facility] Comment on above: Performed at [facility] [address] [place] [address] [employer] [facility] Cortisol 15.55 ug/dL [facility] Comment on above: Reference ranges AM serum (7-9AM): 4.82-19.5 ug/dl PM serum (3-5PM): 2.47-11.9 ug/dl Cortisol Collection Info 30 Minute [facility] Comment on above: Performed at [facility] [address] [place] [address] [employer] [facility] Cortisol 4.35 ug/dL [facility] Comment on above: Reference ranges AM serum (7-9AM): 4.82-19.5 ug/dl PM serum (3-5PM): 2.47-11.9 ug/dl Cortisol Collection Info AM Specimen [facility] Comment on above: Performed at [facility] [address] [place] [address] [employer] [facility] Cortisol, 0 minuteson 2021 Cortisol 7.85 ug/dL [facility] Comment on above: Reference ranges AM serum (7-9AM): 4.82-19.5 ug/dl PM serum (3-5PM): 2.47-11.9 ug/dl Cort[facility] Collection Info Baseline [facility] Comment on above: Performed at [facility] [address] [place] [address] GLUCOSE POCon 02-09-2022 Glucose [Mass/Vol] 154 mg/dL High 70-108 [facility] Comment on above: Performed By: #### P OCGL #### [facility] [address] [place] [address] Glucose [Mass/Vol] 167 mg/dL High 70-108 [facility] Comment on above: Performed By: #### C BCND, PT, APTT, BMP, ANION, EGFR1 #### [facility] [address] [place] [address] Glucose [Mass/Vol] 121 mg/dL High 70-108 [facility] Comment on above: Performed By: #### P OCGL #### [facility] [address] [place] [address] Glucose [Mass/Vol] 106 mg/dL Normal 70-108 [facility] Comment on above: Performed By: #### P OCGL #### [facility] [address] [place] [address] Glucose [Mass/Vol] 117 mg/dL High 70-108 [facility] Comment on above: Performed By: #### P OCGL #### [facility] [address] [address] POCT Glucoseon 02-09-2022 Glucose [Mass/Vol] 154 mg/dL High 70 - 108 mg/dl [facility] Comment on above: Performed at [facility] [address] [place] [address] Interpretation and review of laboratory results Abnormal [facility] Glucose [Mass/Vol] 167 mg/dL High 70 - 108 mg/dl [facility] Comment on above: Performed at [facility] [address] [place] [address] Interpretation and review of laboratory results Abnormal [facility] Glucose [Mass/Vol] 121 mg/dL High 70 - 108 mg/dl [facility] Comment on above: Performed at [facility] [address] [place] [address] Interpretation and review of laboratory results Abnormal [facility] Glucose [Mass/Vol] 106 mg/dL 70 - 108 mg/dl [facility] Comment on above: Performed at [facility] [address] [place] [address] [place] [address] Health Glucose [Mass/Vol] 117 mg/dL High 70 - 108 mg/dl [facility] Comment on above: Performed at [facility] [address] [place] [address] Interpretation and review of laboratory results Abnormal [facility] ANION GAPon 02-08-2022 Anion gap [Moles/Vol] 9.0 mmol/L Normal 8.0-16.0 [facility] Comment on above: Result Comment: ANIO N GAP = Sodium -(Chloride + CO2) Performed By: #### C BCND, PT, APTT, BMP, ANION, EGFR1 #### [facility] [address] [place] [address] Anion Gapon 02-08-2022 Anion gap [Moles/Vol] 9.0 mmol/L 8.0 - 16.0 meq/L [facility] Comment on above: ANION GAP = Sodium - (Chloride + CO2) Performed at [facility] [address] [place] [address] Anion gap [Moles/Vol] 6.0 mmol/L Low 8.0 - 16.0 meq/L [facility] Comment on above: ANION GAP = Sodium - (Chloride + CO2) Performed at [facility] [address] BASIC METABOL PANELon 2021 Calcium [Mass/Vol] 7.8 mg/dL Low 8.5-10.5 [facility] Comment on above: Performed By: #### C BCND, PT, APTT, BMP, ANION, EGFR1 #### [place] [address] Chloride [Moles/Vol] 108 mmol/L Normal 98-111 [facility] Comment on above: Performed By: #### C BCND, PT, APTT, BMP, ANION, EGFR1 #### [place] [address] CO2 [Moles/Vol] 21 mmol/L Low 23-33 [facility] Comment on above: Performed By: #### C BCND, PT, APTT, BMP, ANION, EGFR1 #### [facility] [address] [place] [address] Creatinine [Mass/Vol] 1.0 mg/dL Normal 0.4-1.2 [facility] Comment on above: Performed By: #### C BCND, PT, APTT, BMP, ANION, EGFR1 #### [facility] [address] [place] [address] Glucose [Mass/Vol] 112 mg/dL High 70-108 [facility] Comment on above: Performed By: #### C BCND, PT, APTT, BMP, ANION, EGFR1 #### [facility] [address] [place] [address] Potassium [Moles/Vol] 4.3 mmol/L Normal 3.5-5.2 [facility] Comment on above: Performed By: #### C BCND, PT, APTT, BMP, ANION, EGFR1 #### [facility] [address] [place] [address] Sodium [Moles/Vol] 138 mmol/L Normal 135-145 [facility] Comment on above: Performed By: #### C BCND, PT, APTT, BMP, ANION, EGFR1 #### [facility] [address] [place] [address] Urea nitrogen [Mass/Vol] 12 mg/dL Normal 7-22 [facility] Comment on above: Performed By: #### C BCND, PT, APTT, BMP, ANION, EGFR1 #### [facility] [address] [address] Basic Metabolic Panel 01-18 Calcium [Mass/Vol] 7.8 mg/dL Low 8.5 - 10. 5 mg/dL [facility] Comment on above: Performed at [facility] [address] [place] [address] Chloride [Moles/Vol] 108 mmol/L 98 - 11 1 meq/L [facility] CO2 [Moles/Vol] 21 mmol/L Low 23 - 33 meq/L [facility] Creatinine [Mass/Vol] 1 mg/dL 0.4 - 1.2 mg/dL [facility] Glucose [Mass/Vol] 112 mg/dL High 70 - 108 mg/dL [facility] Potassium [Moles/Vol] 4.3 mmol/L 3.5 - 5.2 meq/L [facility] Sodium [Moles/Vol] 138 mmol/L 135 - 145 meq/L [facility] Urea nitrogen (BldV) [Mass/Vol] 12 mg/dL 7 - 22 mg/dL [facility] Calcium [Mass/Vol] 7.5 mg/dL Low 8.5 - 10. 5 mg/dL [facility] Comment on above: Performed at [facility] [address] [place] [address] Chloride [Moles/Vol] 109 mmol/L 98 - 11 1 meq/L [facility] CO2 [Moles/Vol] 22 mmol/L Low 23 - 33 meq/L [facility] Creatinine [Mass/Vol] 0.8 mg/dL 0.4 - 1.2 mg/dL [facility] Glucose [Mass/Vol] 104 mg/dL 70 - 108 mg/dL [facility] Potassium [Moles/Vol] 3.8 mmol/L 3.5 - 5.2 meq/L [facility] Sodium [Moles/Vol] 137 mmol/L 135 - 145 meq/L [facility] Urea nitrogen (BldV) [Mass/Vol] 12 mg/dL 7 - 22 mg/dL [facility] CBCon 02-08-2022 Erythrocyte distribution width (RBC) [Ratio] 13.4 % 11.5 - 14.5 % [facility] Erythrocyte distribution width (RBC) [Ratio] 48.5 fL High 35.0 - 45.0 fL [facility] Hematocrit (Bld) [Volume fraction] 33.5 % Low 42.0 - 52.0 % [facility] Hemoglobin.gastrointes tinal spec 1 Ql (Stl) 10.2 Low [facility] th Interpretation and review of laboratory results Abnormal [facility] MCH (RBC) [Entitic mass] 30.1 pg 26.0 - 33.0 pg [facility] MCHC (RBC) [Mass/Vol] 30.4 g/dL Low [facility] MCV (RBC) [Entitic vol] 98.8 fL High 80.0 - 94.0 fL [facility] Platelet mean volume (Bld) [Entitic vol] 12.9 fL High 9.4 - 12.4 fL [facility] Comment on above: Performed at [facility] [address] [place] [address] Platelets (Bld) [#/Vol] 89 10*3/uL Low [facility] RBC (Bld) [#/Vol] 3.39 10*6/uL Low [facility] WBC (Bld) [#/Vol] 6.2 10*3/uL [facility] CBC NO DIFFERENTIALon 2021 Erythrocyte distribution width (RBC) [Ratio] 13.4 % Normal 11.5-14.5 [facility] Comment on above: Performed By: #### P OCGL #### [address] [address] Hematocrit (Bld) [Volume fraction] 33.5 % Low 42.0-52.0 [facility] Comment on above: Performed By: #### P OCGL #### [address] [address] Hemoglobin (Bld) [Mass/Vol] 10.2 g/dL Low 14.0-18.0 [facility] Comment on above: Performed By: #### P OCGL #### [address] [address] MCH (RBC) [Entitic mass] 30.1 pg Normal 26.0-33.0 [facility] Comment on above: Performed By: #### P OCGL #### [address] [address] MCHC (RBC) [Mass/Vol] 30.4 g/dL Low 32.2-35.5 [facility] Comment on above: Performed By: #### P OCGL #### [address] [address] MCV (RBC) [Entitic vol] 98.8 fL High 80.0-94.0 [facility] Comment on above: Performed By: #### P OCGL #### [employer] [address] [address] PLATELET 89 thou/mm3 Low 130-400 [facility] Comment on above: Performed By: #### P OCGL #### [address] [address] Platelet mean volume (Bld) [Entitic vol] 12.9 fL High 9.4-12.4 [facility] Comment on above: Performed By: #### P OCGL #### [address] [address] RBC 3.39 mill/mm3 Low 4.70-6.10 [facility] Comment on above: Performed By: #### P OCGL #### [facility] [address] [place] [address] RDW-SD 48.5 fL High 35.0-45.0 [facility] Comment on above: Performed By: #### P OCGL #### [facility] [address] [place] [address] WBC 6.2 thou/mm3 Normal 4.8-10.8 [facility] Comment on above: Performed By: #### P OCGL #### [facility] [address] [place] [address] EKG 12 LeadOrdered By: Susan Carrion on 02-08-2022 Atrial Rate 55 BPM [employer] Work Phone: P [place] 27 degrees [employer] Work Phone: P-R Interval 162 ms [employer] Work Phone: Q-T Interval 460 ms [employer] Work Phone: QRS Duration 94 ms [employer] Work Phone: QTc Calculation (Bazett) 440 ms [employer] Work Phone: R [place] -22 degrees [employer] Work Phone: T [place] 1 degrees [employer] Work Phone: Ventricular Rate 55 BPM [employer] Work Phone: [employer] Work Phone: EKG 12 Leadon 02-08-2022 Sinus [...] SUSAN CARRION ([id number]) on 02/08/2022 10:35:59 AM [employer] Phone: EKG 12-LEADon 02-08-2022 EKG 12-LEAD 55 55 162 94 460 440 27 -22 1 Sinus bradycardia Otherwise normal ECG When compared with ECG of 23-JAN-2022 11:32, No significant change was found Confirmed by SSUAN CARRION ([id number]) on 02/08/2022 10:35:59 AM [email or web address]?PatientI [id number]&Date=09-02-20 22&Time=09%3a14%3a41%3a00 &TestType=ECG&Site=3&Outp utType=PDF&Ext=PDF Normal [facility] GFR, ESTIMATEDon 02-08-2022 GFR/1.73 sq M.predicted MDRD (S/P/Bld) [Vol rate/Area] 75 mL/min/{1.73_m2} Abnormal [facility] Comment on above: Result Comment: Lilliam [...] BCND, PT, APTT, BMP, ANION, EGFR1 #### [facility] [address] [place] [address] GLUCOSE POCon 02-08-2022 Glucose [Mass/Vol] 71 mg/dL Normal 70-108 [facility] Comment on above: Performed By: #### P OCGL ####[facility] [place] [address] Glucose [Mass/Vol] 111 mg/dL High 70-108 [facility] Comment on above: Performed By: #### C BCND, PT, APTT, BMP, ANION, EGFR1 #### [facility] [address] [place] [address] Glucose [Mass/Vol] 66 mg/dL Low 70-108 [facility] Comment on above: Performed By: #### P OCGL #### [facility] [address] [place] [address] Glucose [Mass/Vol] 116 mg/dL High 70-108 [facility] Comment on above: Performed By: #### C BCND, PT, APTT, BMP, ANION, EGFR1 #### [address] [address] Glucose [Mass/Vol] 68 mg/dL Low 70-108 [facility] Comment on above: Performed By: #### P OCGL #### [address] [address] Glucose [Mass/Vol] 101 mg/dL Normal 70-108 [facility] Comment on above: Performed By: #### C BCND, PT, APTT, BMP, ANION, EGFR1 #### [address] [address] Glucose [Mass/Vol] 126 mg/dL High 70-108 [facility] Comment on above: Performed By: #### P OCGL #### [address] [address] Glomerular Filtration Rate, Estimatedon 02-08-2022 GFR/1.73 sq M.predicted MDRD (S/P/Bld) [Vol rate/Area] 75 mL/min/{1.73_m2} Abnormal ml/min/1.[address] [place] [address] Comment on above: Stage Description GF R, [...] Vol. 139 (2) pg 137-147. Performed at [facility] [address] [place] [address] GFR/1.73 sq M.predicted MDRD (S/P/Bld) [Vol rate/Area] mL/min/{1.73_m2} ml/min/1.7 3m2 [facility] Comment on above: Stage Description GF R, [...] Vol. 139 (2) pg 137-147. Performed at [facility] [address] [place] [address] HGB,HCTon 02-08-2022 Hematocrit (Bld) [Volume fraction] 37.3 % Low 42.0-52.0 [facility] Comment on above: Performed By: #### P OCGL #### [facility] [address] [place] [address] Hemoglobin (Bld) [Mass/Vol] 11.4 g/dL Low 14.0-18.0 [facility] Comment on above: Performed By: #### P OCGL #### [facility] [address] [place] [address] Hemoglobin and Hematocriton 02-08-2022 Hematocrit (Bld) [Volume fraction] 37.3 % Low 42.0 - 52.0 % [facility] Comment on above: Performed at [facility] [address] [place] [address] Hemoglobin.gastrointes tinal spec 1 Ql (Stl) 11.4 Low [facility] Interpretation and review of laboratory results Abnormal [facility] Hemoglobin and hematocrit, b loodon 02-08-2022 Hematocrit (Bld) [Volume fraction] 36.9 % Low 42.0 - 52.0 % [facility] Comment on above: Performed at [facility] [address] [place] [address] Hemoglobin.gastrointes tinal spec 1 Ql (Stl) 11.6 Low [facility] Interpretation and review of laboratory results Abnormal [facility] No Panel Informationon 02-08 Interpretation and review of laboratory results Abnormal [facility] Interpretation and review of laboratory results Abnormal [facility] POCT Glucoseon 02-08-2022 Glucose [Mass/Vol] 71 mg/dL 70 - 108 mg/dl [facility] Comment on above: Performed at [facility] [address] [place] [address] Glucose [Mass/Vol] 111 mg/dL High 70 - 108 mg/dl [facility] Comment on above: Performed at [facility] [address] [place] [address] Interpretation and review of laboratory results Abnormal [facility] Glucose [Mass/Vol] 66 mg/dL Low 70 - 108 mg/dl [facility] Comment on above: Performed at [facility] [address] [place] [address] Interpretation and review of laboratory results Abnormal [facility] Glucose [Mass/Vol] 116 mg/dL High 70 - 108 mg/dl [facility] Comment on above: Performed at [facility] [address] [place] [address] Interpretation and review of laboratory results Abnormal [facility] Glucose [Mass/Vol] 68 mg/dL Low 70 - 108 mg/dl [facility] Comment on above: Performed at [facility] [address] [place] [address] Interpretation and review of laboratory results Abnormal [facility] Glucose [Mass/Vol] 101 mg/dL 70 - 108 mg/dl [facility] Comment on above: Performed at [facility] [address] [place] [address] Glucose [Mass/Vol] 126 mg/dL High 70 - 108 mg/dl [facility] Comment on above: Performed at [facility] [address] [place] [address] Interpretation and review of laboratory results Abnormal [facility] PROCALCITONINon 02-08-2022 PROCALCITONIN 0.08 ng/mL Normal 0.01-0.09 [facility] Comment on above: Result Comment: [...] entered into the Change in Procalcitonin Calculator ([employer].[email or web address]) to determine the patient's Mortality Risk Prognosis. In healthy neonates, plasma Procalcitonin (PCT) concentrations increase gradually after , reaching peak values at about 24 hours of age then decrease to normal values below 0.5 ng/mL by 48-72 hours of age. Performed By: #### P OCGL #### [facility] [address] [place] [address] Procalcitoninon 02-08-2022 Procalcitonin 0.08 ng/mL 0.01 - 0.09 ng/mL [facility] Comment on above: Suspected Sepsis: <0.50 ng/mL [...] entered into the Change in Procalcitonin Calculator ([email or web address].xrmrgz-urz-onpmlwivan.Keepstream) to determine the patient's Mortality Risk Prognosis. In healthy neonates, plasma Procalcitonin (PCT) concentrations increase gradually after , reaching peak values at about 24 hours of age then decrease to normal values below 0.5 ng/mL by 48-72 hours of age. Performed at [facility] [address] SCAN OF BLOOD SMEARon 2021 SCAN OF BLOOD SMEAR see below Normal [facility] Comment on above: Result Comment: Sony stafford Exceeded; Scan of Differential Slide Performed Performed By: #### P OCGL #### [facility] [address] [place] [address] Scan of Blood Smearon 2021 SCAN OF BLOOD SMEAR see below [facility] Comment on above: Criteria Exceeded; S can of Differential Slide Performed Performed at [address] XR CHEST PORTABLEon 02-09-20 22 Prominent left basil ar opacity as evidence for atelectasis and/or infiltrate. This report has been created using voice recognition software. It may contain minor errors which are inherent in voice recognition technology. Final report electronically signed by Dr. Romel Maldonado DO, MD on 02/08/2022 10:26 AM [facility] Romel Nguyen DO - 02/08/2022 PROCEDURE: [...] Maldonado DO, MD on 02/08/2022 10:26 AM [employer] Work Phone: Radiology Study observation (narrative) [employer] Phone: XR CHEST PORTABLEOrdered By: Romel Maldonado on 02-08-2022 [facility] Work Phone: GLUCOSE POCon 02-07-2022 Glucose [Mass/Vol] 132 mg/dL High 70-108 [facility] Comment on above: Performed By: #### C BCND, PT, APTT, BMP, ANION, EGFR1 #### [facility] [address] [place] [address] Glucose [Mass/Vol] 118 mg/dL High 70-108 [facility] Comment on above: Performed By: #### C BCND, PT, APTT, BMP, ANION, EGFR1 #### [facility] [address] [place] [address] Glucose [Mass/Vol] 77 mg/dL Normal 70-108 [facility] Comment on above: Performed By: #### P OCGL #### [facility] [address] [place] [address] POCT Glucoseon 02-07-2022 Glucose [Mass/Vol] 132 mg/dL High 70 - 108 mg/dl [facility] Comment on above: Performed at [facility] [address] [place] [address] Interpretation and review of laboratory results Abnormal [facility] Glucose [Mass/Vol] 118 mg/dL High 70 - 108 mg/dl [facility] Comment on above: Performed at [facility] [address] [place] [address] Interpretation and review of laboratory results Abnormal [facility] Glucose [Mass/Vol] 77 mg/dL 70 - 108 mg/dl [facility] Comment on above: Performed at [facility] [address] [place] [address] [address] [facility] TYPE AND SCREENon 02-07-2022 ABO A [facility] Rh Factor Negative [facility] TYPE AND SCREEN CAPTUREon ABO CAPTURE A Normal [facility] Comment on above: Performed By: #### C BCND, PT, APTT, BMP, ANION, EGFR1 #### [facility] [address] [place] [address] INDIRECT ARVIN CAPTURE Negative Normal [facility] Comment on above: Performed By: #### C BCND, PT, APTT, BMP, ANION, EGFR1 #### [facility] [address] [place] [address] RH CAPTURE (2 D CLONES) Negative Normal [facility] Comment on above: Performed By: #### C BCND, PT, APTT, BMP, ANION, EGFR1 #### [facility] [address] [place] [address] XR LUMBAR SPINE 1 VWon 02-07 XR [...] Wicho Allen MD 02/07/22 Final result Normal [facility] Postop appearance of the lumbar spine. This report has been created using voice recognition software. It may contain minor errors which are inherent in voice recognition technology. Final report electronically signed by Dr. Wicho Allen on 02/07/2022 2:28 PM [facility] MOBILE LATERAL LUMBA R SPINE: CLINICAL INFORMATION: L2 S1 decompression, posterior COMPARISON: Earlier film same date, 1120 hours. TECHNIQUE: A single lateral mobile view of the lumbar spine was obtained following surgery performed by Dr. Loza. FINDINGS: Posterior lumbar fusion has been performed, with the pedicle screws and rods extending from L2 to S1. The lumbar vertebra are normally aligned. [facility] Wicho Heredia MD - 02/07/2022 MOBILE LATERAL [...] Dr. Wicho Allen on 02/07/2022 2:28 PM [employer] Phone: Lateral film of the lumbar spine during surgery. Please refer to the operative note for further details. This report has been created using voice recognition software. It may contain minor errors which are inherent in voice recognition technology. Final report electronically signed by Dr Milton Way on 02/07/2022 2:17 PM [facility] Milton Somers MD - 02/07/2022 PROCEDURE: [...] Dr Milton Way on 02/07/2022 2:17 PM [employer] Phone: Radiology Study observation (narrative) [employer] Phone: Radiology Study observation (narrative) [employer] Phone: XR LUMBAR SPINE 1 VWOrdered By: Wicho Allen on 02-07-2022 [employer] Phone: XR LUMBAR SPINE 1 VWOrdered By: Milton Way on 02-07-2022 [employer] ANION GAPon 01-23-2022 Anion gap [Moles/Vol] 10.0 mmol/L Normal 8.0-16.0 [facility] Comment on above: Result Comment: ANIO N GAP = Sodium -(Chloride + CO2) Performed By: #### P OCGL #### [address] [address] APTTon 01-23-2022 aPTT Coag (Bld) [Time] 35.1 s Normal 22.0-38.0 [facility] Comment on above: Result Comment: Ther apeutic Heparin Reference Range= 60-95 seconds (corresponds to 0.3 to 0.7 u/mL Anti-Xa factor activity) Performed By: #### C BCND, PT, APTT, BMP, ANION, EGFR1 #### [address] [address] BASIC METABOL PANELon 2021 Calcium [Mass/Vol] 9.8 mg/dL Normal 8.5-10.5 [facility] Comment on above: Performed By: #### C BCND, PT, APTT, BMP, ANION, EGFR1 #### [employer] [address] [address] Chloride [Moles/Vol] 104 mmol/L Normal 98-111 [facility] Comment on above: Performed By: #### C BCND, PT, APTT, BMP, ANION, EGFR1 #### [employer] [facility] [employer] [address] [place] [address] CO2 [Moles/Vol] 29 mmol/L Normal 23-33 [facility] Comment on above: Performed By: #### C BCND, PT, APTT, BMP, ANION, EGFR1 #### [employer] [facility] [employer] [address] [place] [address] Creatinine [Mass/Vol] 1.0 mg/dL Normal 0.4-1.2 [facility] Comment on above: Performed By: #### C BCND, PT, APTT, BMP, ANION, EGFR1 #### [employer] [facility] [employer] [address] [place] [address] Glucose [Mass/Vol] 87 mg/dL Normal 70-108 [facility] Comment on above: Performed By: #### C BCND, PT, APTT, BMP, ANION, EGFR1 #### [place] [address] Potassium [Moles/Vol] 4.6 mmol/L Normal 3.5-5.2 [facility] Comment on above: Performed By: #### C BCND, PT, APTT, BMP, ANION, EGFR1 #### [place] [address] Sodium [Moles/Vol] 143 mmol/L Normal 135-145 [facility] Comment on above: Performed By: #### C BCND, PT, APTT, BMP, ANION, EGFR1 #### [place] [address] Urea nitrogen [Mass/Vol] 21 mg/dL Normal 7-22 [facility] Comment on above: Performed By: #### C BCND, PT, APTT, BMP, ANION, EGFR1 #### [place] [address] CBC NO DIFFERENTIALon 2021 Erythrocyte distribution width (RBC) [Ratio] 13.7 % Normal 11.5-14.5 [facility] Comment on above: Performed By: #### C BCND, PT, APTT, BMP, ANION, EGFR1 #### [place] [address] Hematocrit (Bld) [Volume fraction] 51.9 % Normal 42.0-52.0 [facility] Comment on above: Performed By: #### C BCND, PT, APTT, BMP, ANION, EGFR1 #### [place] [address] Hemoglobin (Bld) [Mass/Vol] 16.3 g/dL Normal 14.0-18.0 [facility] Comment on above: Performed By: #### C BCND, PT, APTT, BMP, ANION, EGFR1 #### [place] [address] MCH (RBC) [Entitic mass] 30.1 pg Normal 26.0-33.0 [facility] Comment on above: Performed By: #### C BCND, PT, APTT, BMP, ANION, EGFR1 #### [place] [address] MCHC (RBC) [Mass/Vol] 31.4 g/dL Low 32.2-35.5 [facility] Comment on above: Performed By: #### C BCND, PT, APTT, BMP, ANION, EGFR1 #### [place] [address] MCV (RBC) [Entitic vol] 95.8 fL High 80.0-94.0 [facility] Comment on above: Performed By: #### C BCND, PT, APTT, BMP, ANION, EGFR1 #### [place] [address] PLATELET 149 thou/mm3 Normal 130-400 [facility] Comment on above: Performed By: #### C BCND, PT, APTT, BMP, ANION, EGFR1 #### [place] [address] Platelet mean volume (Bld) [Entitic vol] 12.6 fL High 9.4-12.4 [facility] Comment on above: Performed By: #### C BCND, PT, APTT, BMP, ANION, EGFR1 #### [place] [address] RBC 5.42 mill/mm3 Normal 4.70-6.10 [facility] Comment on above: Performed By: #### C BCND, PT, APTT, BMP, ANION, EGFR1 #### [place] [address] RDW-SD 48.8 fL High 35.0-45.0 [facility] Comment on above: Performed By: #### C BCND, PT, APTT, BMP, ANION, EGFR1 #### [place] [address] WBC 5.8 thou/mm3 Normal 4.8-10.8 [facility] Comment on above: Performed By: #### C BCND, PT, APTT, BMP, ANION, EGFR1 #### [address] [address] EKG 12-LEADon 01-23-2022 EKG 12-LEAD 55 55 168 90 438 419 24 -23 Sinus bradycardia Otherwise normal ECG No previous ECGs available Confirmed by BALA SCHRADER MD ([id number]) on 01/23/2022 7:54:09 PM [email or web address]?PatientI [id number]&Date=04-21-20 22&Time=11%3a32%3a52%3a00 &TestType=ECG&Site=3&Outp utType=PDF&Ext=PDF Normal [facility] GFR, ESTIMATEDon 01-23-2022 GFR/1.73 sq M.predicted MDRD (S/P/Bld) [Vol rate/Area] 75 mL/min/{1.73_m2} Abnormal [facility] Comment on above: Result Comment: Lilliam [...] 137-147. Performed By: #### P OCGL #### [facility] [employer] [address] [place] [address] HEMOGLOBIN A1Con 01-23-2022 Glucose [Mass/Vol] 99 mg/dL Normal 70-126 [facility] Comment on above: Performed By: #### C BCND, PT, APTT, BMP, ANION, EGFR1 #### [facility] [address] [place] [address] HbA1c (Bld) [Mass fraction] 5.3 % Normal 4.4-6.4 [facility] Comment on above: Performed By: #### C BCND, PT, APTT, BMP, ANION, EGFR1 #### [address] [address] NASAL COMPLETE SCREEN RT-PCR on 01-23-2022 MRSA SCREEN RT-PCR Positive Abnormal [facility] Comment on above: Result Comment: MRSA TARGET DNA DETECTED by Real Time - Polymerase Chain Reaction. A positive test result does not necessarily indicate the presence of viable organisms. It is, however, presumptive for the presence of MRSA DNA. . Performed By: #### P OCGL #### [place] [id number] SA SCREEN RT-PCR Positive Abnormal [facility] Comment on above: Result Comment: Stap hylococcus aureus (SA) target DNA DETECTED by Real Time - Polymerase Chain Reaction. A positive test result does not necessarily indicate the presence of viable organisms. It is, however presumptive for the presence of SA DNA. Performed By: #### P OCGL #### [address] [address] PROTHOMBIN TIMEon 01-23-2022 INR Coag (Bld) [Relative time] 1.06 {INR} Normal 0.85-1.13 [facility] Comment on above: Result Comment: ---- -----INDICATION INR Reference Range DVT, PE, AF, AMI, tissue heart valve 2.0 to 3.0 Mechanical prosthetic valves 2.5 to 3.5 Performed By: #### C BCND, PT, APTT, BMP, ANION, EGFR1 #### [place] [id number] [facility] CARDIAC STRESS/REST INJE CTIONon 09-05-2021 [facility] CARDIAC STRESS/REST INJECTION Patient Name: ALISIA CORREA STUDY: MYOCARDIAL PERFUSION STRESS TEST WITH LEXISCAN Performing facility: [facility], [address] [place] [address], [address], [place] [address] [facility] Provider: Ren Watson MD, FACC PCP: Dr. Ellen Crabtree Supervising provider: Milagros Mcnally MD, FACC INDICATION: Chest Pain; Dyspnea HISTORY: Gender: M; Age: 60 y/o ; Height: 0 cm; Weight: 0 kg. High Cholesterol; Chest Pain; Syncope; Parkinson's Currently smoking. COMPARISON: Previous nuclear testing completed [id number] at [facility]. ACCESSION NUMBER(S): [id number]; [id number]; [id number] ORDERING CLINICIAN: REN WATSON TECHNIQUE: ONE DAY [...] Electronically signed by: REN WATSON MD Normal [facility] No Panel Informationon 09-05 Normal -[facility] [address] [place] Work Phone: Office [...] we can help. You may also call [phone] for free resources and assistance.; Status:Complete - [...] of Parkinson's disease followed by neurology from [place] on medical therapy. The patient has been [...] PCP. 7?Parkinson's disease followed by neurology from [place]. 8?obesity, encouraged the patient to reduce caloric [...] History o (more content not included)... Normal [employer] Tobacco Screening.on 021 Fall risk assessment b) One or more fall s in the last year [facility] [address] DO Work Phone: Tobacco use status [facility] a) Yes [facility] 250 DO Work Phone: Tobacco Screening. Yes [facility] 250 DO Work Phone: CT C-SPINE W RECON DATA -NBo n 09-17-2020 CT C-SPINE W RECON DATA -NB * * *Final Report* * * DATE OF EXAM: Sep 17 2020 12:01PM [facility] 0478 - CT C-SPINE W RECON DATA [...] Counting reference: Craniocervical junction. Anatomic Variants: None. Luggage Attendant (topogram) images: Postop changes of the bland. [...] vertebrae with counting from the craniocervical junction. School Psychologist: [employer] Transcribe Date/Time: Sep 17 2020 12:05P Dictated by : NICO MARTIN MD This examination was interpreted and the report reviewed and electronically signed by: NICO MARTIN MD on Sep 17 2020 12:08PM EST [id number] [facility] CTA HEAD WO/W IVCONon 2019 CTA HEAD WO/W IVCON * * *Final Report* * * DATE OF EXAM: Sep 17 2020 12:01PM [facility] 0023 - CTA HEAD WO/W IVCON / [...] Applicable Spot Sign Number: Not Applicable NECK: Luggage Attendant (topogram) images: Postop changes of ACDF at [...] neck arteries. Essentially normal noncontrast CT brain. School Psychologist: [facility] Transcribe Date/Time: Sep 17 2020 11:56A Dictated by : NICO MARTIN MD This examination was interpreted and the report reviewed and electronically signed by: NICO MARTIN MD on Sep 17 2020 12:09PM EST [id number] Normal [facility] CTA NECK W IVCONon 0 CTA NECK W IVCON * * *Final Report* * * DATE OF EXAM: Sep 17 2020 12:01PM [facility] 0024 - CTA NECK W IVCON / [...] Applicable Spot Sign Number: Not Applicable NECK: Luggage Attendant (topogram) images: Postop changes of ACDF at [...] neck arteries. Essentially normal noncontrast CT brain. School Psychologist: [facility] Transcribe Date/Time: Sep 17 2020 11:56A Dictated by : NICO MARTIN MD This examination was interpreted and the report reviewed and electronically signed by: NICO MARTIN MD on Sep 17 2020 12:09PM EST [id number] [facility] PROGRESSon 09-17-2020 PROGRESS HNO ID: [id number] Author: OMERO Brownlee Service: Radiology Author Type: Clinical Big Machine Consultant Type: Progress Notes Filed: 09/17/2020 11:40 AM [...] OMERO Brownlee September 17, 2020 11:39 AM [facility] 09-11-2020 CNPN Telephone (AVXRPR) ----- ALISIA CORREA ([id number]) 1960 M Date Time Provider Department 09/11/20 MAKI JEONG AVXRJOSH During your visit today, we recorded the [...] TABLET Take 10 mg by mouth once baryan* EZETIMIBE 10 MG TABLET Take 10 mg [...] More... Hyperlipidemia [E78.5] 12/07/2017 More... Ulcerative lesion [PNF5955] 12/07/2017 07/21/2019 Shoulder arthritis [M19.019] 12/29/2017 Status [...] Encounter Status:Closed by MAKI JEONG on 09/11/20 Normal [facility] CT LUMBAR SPINE WO IVCONon 1 [facility] No Panel Informationon 06-[address] [facility] [address] THORACIC SPINE WO IVCONon 06-15-2020 [facility] ALLIED HEALTHon 05-04-2020 ALLIED HEALTH HNO ID: [id number] Author: Daniela (Rn) ALFONSO Castro Service: Infection Prevention Author Type: Registered Nurse Type: Allied Health Filed: 05/04/2020 8:19 AM Note Text: ISOLATION NOTE Admission Date: 05/03/2020 Type of Isolation Recommended: Contact Precautions ([place] Isolation Sign) Indication: Carbapenem-resistant Enterobacteriaceae (CRE) Date Isolation Initiated: 05/04/2020 Anticipated Duration of Isolation: Duration of hospitalization Type and Date of Positive Test(s): urine culture 10/18/2019 SIGNATURE: Daniela Castro RN MSN PATIENT NAME: Alisia Correa DATE: May 04, 2020 TIME: 8:17 AM PAGER/CONTACT #: [phone] [facility] Basic Metabolic Panlon 05-04 Anion gap [Moles/Vol] 8 mmol/L Low 9-18 [facility] Calcium [Mass/Vol] 8.4 mg/dL Low 8.5-10.2 [facility] ospital Chloride [Moles/Vol] 103 mmol/L Normal 97-105 [facility] CO2 [Moles/Vol] 25 mmol/L Normal 22-30 [facility] Creatinine [Mass/Vol] 1.11 mg/dL Normal 0.73-1.22 [facility] eGFR- Amer. >60 Normal [facility] GFR/1.73 sq M predicted among non-blacks MDRD (S/P/Bld) [Vol rate/Area] mL/min/{1.73_m2} Normal [facility] Comment on above: Result Comment: eGFR (Estimated [...] ospital Comment on above: Result Comment: The [place] Diabetes Association (ADA) provides guidance for cutoff [...] Standards of Medical Care in Diabetes 2016, [place] Diabetes Association. Diabetes Care. 2016.39(Suppl 1). Potassium [Moles/Vol] 4.1 mmol/L Normal 3.7-5.1 [facility] Sodium [Moles/Vol] 136 mmol/L Normal 136-144 [facility] Urea nitrogen [Mass/Vol] 16 mg/dL Normal 9-24 [facility] CASE MANAGEMon 05-04-2020 CASE MANAGEM HNO ID: [id number] Author: Ashley (Rn) ALFONSO Sands Service: Care Management Author Type: Registered Nurse Type: Care Mgt Progress Note Filed: 05/04/2020 11:01 AM Note Text: CARE MANAGEMENT PROGRESS NOTE SERVICE DATE: 05/04/2020 SERVICE TIME: 10:59 AM LOS: 0 days Spoke with Titi at [facility] outpatient PT. Appointment scheduled for Monday 05/07 at 1:30 PM. Patient to arrive 15 minutes early. Patient notified. SIGNATURE: Ashley Sands RN PATIENT NAME: Alisia Correa DATE: May 04, 2020 TIME: 10:59 AM PAGER/CONTACT #: [phone] [facility] CASE MGT INIT [facility] 2019 CASE MGT INIT [facility] HNO ID: [id number] Author: Ashley Nelson) ALFONSO Sands Service: Care Management Author Type: Registered Nurse Type: Care Mgt Initial Assessment Filed: 05/04/2020 10:16 AM Note Text: CARE MANAGEMENT: ASSESSMENT AND DISCHARGE PLAN SERVICE DATE: May 04, 2020 SERVICE TIME: 10:15 AM PRIMARY CARE PHYSICIAN: Ellen Crabtree DO ADMISSION STATUS: Extended Recovery MEDICAL: [employer] MEDICARE 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 Last discharge within 30 days: No Advance Directive: Current Advance Directive: Health Care Power of Candle Making Supervisor;Living Will In Chart: No Plate Grainer Apprentice Attempted to Assist with AD Completion: Yes [...] Information Primary Emergency Contact: Dipti Correa Address: [address] [place] [address] OF [facility] Mobile Relation: Spouse Supportive Patient Contact:: [...] for meeting these needs: Outpatient therapy at [facility] Patient's perception of need for this admission: hip replacement Medication Adherance I am convinced of the importance of my prescription medication: 0 - Agree Completely I worry that my prescription medication will do more harm than good to me : 0 - Disagree Completely I feel financially burdened by my pzs-am-lihgrj expenses for my prescription medication:: 0 - Disagree Completely Risk Score: 0 Patient is categorized as: Low risk < 2 Are you interested in bedside delivery of your medications? Yes Is Patient Psychosocially Complex?: No ASSESSMENT AND PLAN: Medical Needs: Medical Needs: None Psychosocial Needs: Psychosocial Needs: None FREEDOM OF CHOICE EXPLAINED: [place] of Choice Given: No Reason Not Given: No placements necessary POTENTIAL TRANSITION PLANS Outpatient Therapy Pt from home with spouse. Plan is Outpatient PT at [facility]. Patient does not have an appointment. Call placed to [facility] to schedule appointment. Waiting for return call. SIGNATURE: Ashley Sands RN PATIENT NAME: Alisia Correa DATE: May 04, 2020 TIME: 10:14 AM PAGER/CONTACT #: [phone] Normal [facility] CBCon 05-04-2020 Absolute nRBC <0.01 Normal <0.01 [facility] al Erythrocyte distribution width (RBC) [Ratio] 14.1 % Normal 11.5-15.0 [facility] Hematocrit (Bld) [Volume fraction] 39.3 % Normal 39.0-51.0 [facility] Hemoglobin (Bld) [Mass/Vol] 12.6 g/dL Low 13.0-17.0 [facility] MCH (RBC) [Entitic mass] 30.1 pG Normal 26.0-34.0 [facility] MCHC (RBC) [Mass/Vol] 32.1 g/dL Normal 30.5-36.0 [facility] MCV (RBC) [Entitic vol] 94.0 fL Normal 80.0-100.0 [facility] Platelet mean volume (Bld) [Entitic vol] 12.8 fL High 9.0-12.7 [facility] l Platelets (Bld) [#/Vol] 134 10*3/uL Low 150-400 [facility] RBC (Bld) [#/Vol] 4.18 10*6/uL Low 4.20-6.00 [facility] WBC (Bld) [#/Vol] 7.60 10*3/uL Normal 3.70-11.00 [facility] NURSING PROGon 05-04-2020 NURSING PROG HNO ID: [id number] Author: Renae (Rn) ALFONSO Greco Service: ? Author Type: Registered Nurse Type: Nursing Progress Note Filed: 05/04/2020 8:04 PM Note Text: Nursing Progress Note Patient Name: Alisia Correa Patient Location: [facility]/ Daily Note: 1000 Pt awake oriented this [...] was completed by: Renae Greco RN Normal [facility] PLAN OF CAREon 05-04-2020 PLAN OF CARE HNO ID: [id number] Author: Rita Arias (Window Shade Cutter And Mounter) Service: ? Author Type: ? Type: Plan [...] ointment Commonly known as: BACTROBAN Rita Arias (Window Shade Cutter And Mounter) PAGER: yvan May 04, 2020 4:29 PM [facility] PROGRESSon 05-04-2020 PROGRESS HNO ID: [id number] Author: Steven Guevara Jr. Service: Orthopaedic Surgery [...] (Hcc) Dysphagia Psychosis Due to Parkinson's Disease (Hcc) Osteoarthritis of Left Hip Open Wound of [...] 1751 -- 05/03/20 1800 pneumatic compression stockings (ar,oh) 05/03/20 1800 graduated compression stockings (ar,in) 05/03/20 1800 activity - mobilize patient (ar,in) 05/03/20 1800 activity - mobilize patient (ar,oh) 05/03/20 1800 activity - mobilize patient (ar,in) VTE Prophylaxis: VTE prophylaxis appropriate POST OPERATIVE COMPLICATIONS: Complicated by: uneventful/none SIGNATURE: Steven Guevara Jr, MD PATIENT NAME: Alisia Correa DATE: May 04, 2020 TIME: 7:54 AM PAGER/CONTACT #: [phone] [facility] THERAPY NTon 05-04-2020 THERAPY NT HNO ID: [id number] Author: Nusrat (Ot/L) El Service: Occupational Therapy Author Type: Occupational Therapist Type: Therapy (PT/OT/Speech/Resp) Filed: 05/04/2020 1:20 PM Note Text: Occupational Therapy SERVICE DATE: 05/04/2020 SERVICE TIME: 1145 to 1251 ROOM: [place] [address] Recommended Discharge Disposition: Home Anticipated Discharge Needs: [...] of daily living (ADL) Interventions Provided: Evaluation;Self [facility] Management (36380) $ Evaluation-Low (23724) Billed Units: 1 unit Self [facility] Management (73976) Treatment Minutes: 51 3 units Skilled Intervention(s): [...] car transfer with instructions given to have truck driver teamster (as Patient is not allowed to drive) [...] Environment Patient Lives With: Spouse Assistance Available: vegetable washer(spouse works blast furnace operator but workplace is nearby and flexib ) Entry To Home: With Rail;Stairs Number Of Stairs Into Home: 2 Number Of Stairs To Bed/Bath: 1st floor bed and bath Tub/Shower Type: WIS with shower chair, grab bars, HHS Laundry: 1ST FLOOR Equipment Owned: Cane;Hand Held Shower;Grab Bars-Shower;Standard Walker;Commode-Raised;Tammy wer Chair;Lift Chair;ADL Kit;Legal Arbitrator;Wheeled Walker Prior Functional Level: Within Functional Limits Prior Functional Level Comments: 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, 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, IADL's, amb usually without AD, but had to use RW 1 week 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 due to being off OA meds OBJECTIVE: [...] DATE: May 04, 2020 TIME: 1:08 PM [facility] THERAPY NT HNO ID: [id number] Author: Massiel JerryPt) ALBA Russell Service: Physical Therapy Author Type: Physical Therapist Type: Therapy (PT/OT/Speech/Resp) Filed: 05/04/2020 11:30 AM Note Text: Physical Therapy Evaluation SERVICE DATE: 05/04/2020 SERVICE TIME: 1008 to 1050 ROOM: [place] [address] Recommended Discharge Disposition: Outpatient Physical Therapy Anticipated [...] Diagnosis: Reduced mobility-other Interventions Provided: Evaluation;Therapeutic Exercise (63665);Therapeutic Activity (02807);Gait Training (05226) $ Evaluation-Moderate (01603) Billed Units: 1 unit Therapeutic Exercise (40652) Treatment Minutes: 6 Skilled Intervention(s): Instruction in therapeutic exercise per THR protocol: AP, QS, GS, HS, abd, LAQ Verbal and tactile cuing provided for each. Written handouts provided and reviewed with patient today Therapeutic Activity (09648) Treatment Minutes: 10 1 unit Skilled Intervention(s): [...] 2/3 precautions without cues today Gait Training (68476) Treatment Minutes: 11 1 unit Skilled Intervention(s): [...] Environment Patient Lives With: Spouse Assistance Available: vegetable washer(spouse works blast furnace operator but workplace is nearby and flexib ) Entry To Home: With Rail;Stairs Number Of Stairs Into Home: 2 Number Of Stairs To Bed/Bath: 1st floor bed and bath Tub/Shower Type: WIS with shower chair, grab bars, HHS Laundry: 1ST FLOOR Equipment Owned: Cane;Hand Held Shower;Grab Bars-Shower;Standard Walker;Commode-Raised;Tammy wer Chair;Lift Chair;ADL Kit;Legal Arbitrator;Wheeled Walker Prior Functional Level: Within Functional Limits Prior Functional Level 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 Author Type: Physician Type: Anesthesia Postprocedure Evaluation Filed: 05/03/2020 4:28 PM Note Text: POST ANESTHESIA EVALUATION NOTE : 1960 Procedure Summary Date: 05/03/20 Room / Location: OR01 / AV OR Anesthesia Start: 1245 Anesthesia Stop: 1545 Procedure: ARTHROPLASTY REPLACE JOINT TOTAL HIP (Right [...] May 03, 2020 TIME: 4:28 PM CSN: [id number] [facility] ANES PRE-OPon 05-03-2020 ANES PRE-OP HNO ID: [id number] Author: Coreen Ryan Service: ? Author Type: [...] May 03, 2020 TIME: 10:37 AM CSN: [id number] Normal [facility] Basic Metabolic Panlon 05-03 Anion gap [Moles/Vol] 8 mmol/L Low 9-18 [facility] Calcium [Mass/Vol] 8.7 mg/dL Normal 8.5-10.2 [facility] Chloride [Moles/Vol] 105 mmol/L Normal 97-105 [facility] CO2 [Moles/Vol] 25 mmol/L Normal 22-30 [facility] Creatinine [Mass/Vol] 1.20 mg/dL Normal 0.73-1.22 [facility] eGFR- Amer. >60 Normal [facility] GFR/1.73 sq M predicted among non-blacks MDRD (S/P/Bld) [Vol rate/Area] mL/min/{1.73_m2} Normal [facility] Comment on above: Result Comment: eGFR (Estimated [...] GFR. Glucose [Mass/Vol] 107 mg/dL High 74-99 [facility] Comment on above: Result Comment: The [place] Diabetes Association (ADA) provides guidance for cutoff [...] Standards of Medical Care in Diabetes 2016, [place] Diabetes Association. Diabetes Care. 2016.39(Suppl 1). Potassium [Moles/Vol] 4.3 mmol/L Normal 3.7-5.1 [facility] Sodium [Moles/Vol] 138 mmol/L Normal 136-144 [facility] ospital Urea nitrogen [Mass/Vol] 18 mg/dL Normal 9-24 [facility] CBCon 05-03-2020 Absolute nRBC <0.01 Normal <0.01 [facility] al Erythrocyte distribution width (RBC) [Ratio] 14.1 % Normal 11.5-15.0 [facility] Hematocrit (Bld) [Volume fraction] 43.9 % Normal 39.0-51.0 [facility] Hemoglobin (Bld) [Mass/Vol] 14.3 g/dL Normal 13.0-17.0 [facility] MCH (RBC) [Entitic mass] 30.2 pG Normal 26.0-34.0 [facility] MCHC (RBC) [Mass/Vol] 32.6 g/dL Normal 30.5-36.0 [facility] MCV (RBC) [Entitic vol] 92.8 fL Normal 80.0-100.0 [facility] Platelet mean volume (Bld) [Entitic vol] 11.7 fL Normal 9.0-12.7 [facility] l Platelets (Bld) [#/Vol] 145 10*3/uL Low 150-400 [facility] RBC (Bld) [#/Vol] 4.73 10*6/uL Normal 4.20-6.00 [facility] WBC (Bld) [#/Vol] 9.79 10*3/uL Normal 3.70-11.00 [facility] CONSULTon 05-03-2020 CONSULT HNO ID: [id number] Author: Henry Collins Service: Hospital Medicine Author Type: Physician Type: Consults Filed: 05/03/2020 8:50 PM Note Text: DEPARTMENT OF HOSPITAL MEDICINE INITIAL CONSULT SERVICE DATE: 05/03/2020 SERVICE TIME: 7:44 PM Primary Care Physician: Ellen Crabtree, DO NIGHT AND WEEKEND COVERAGE: [place] COVERAGE: Days: [phone], please contact day attending provider ( please page admission pager [phone] to find out day attending provider for [...] Laterality Date - COLONOSCOP W/ OR W/O [facility] SPEC Colonoscopy - EGD W/O OR [...] kidney stone - PAST SURGICAL HISTORY OF 8/15/07 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 Author Type: Registered Nurse Type: Nursing Progress Note Filed: 05/03/2020 7:58 PM Note Text: Nursing Progress Note Patient Name: Alisia Correa Patient Location: / Daily Note: Received pt from PACU in stable condition at 1745. Bilateral ppp, toes warm and mobile, denies numbness or tingling, Abductor pillow in place. Vitals stable. Will monitor. This note was completed by: Renae Greco RN [facility] OPERATIVE NOon 05-03-2020 OPERATIVE NO HNO ID: [id number] Author: Steven Guevara Jr. Service: Orthopaedic Surgery Author Type: Physician Type: Operative Report Filed: 05/03/2020 3:08 PM Note Text: [facility] OPERATIVE REPORT PATIENT NAME: Alisia Correa AGE: [age] year old LOG ID: [id number] Surgery Date: 05/03/2020 SURGEON: Steven Guevara M.D. CERTIFIED LOW VISION THERAPIST: Vj Jorge PA-C, his assistance consisted of [...] banked allogenic blood if medically necessary. IMPLANTS: [employer] Total Hip System SIZE TYPE Acetabulum [...] dislocated. Proximal femoral osteotomy was performed. The experimental box tester osteotome was utilized to lateralize the starting [...] DATE: May 03, 2020 TIME: 2:57 PM [facility] PROGRESSon 05-03-2020 PROGRESS HNO ID: [id number] Author: Tracey JerryRt) Stampalirio Service: Radiology Author Type: Big Machine Consultant Type: Progress Notes Filed: 05/03/2020 4:01 PM [...] RT Kathy May 03, 2020 4:01 PM [facility] PROGRESS HNO ID: [id number] Author: Steven Guevara Jr. Service: Orthopaedic Surgery Author Type: Physician Type: Progress Notes Filed: 05/03/2020 8:02 AM Note Text: The patient was offered a surgery/procedure at a [facility]. The surgeon/proceduralist and patient have discussed in [...] surgery/procedure as indicated on the consent form. [facility] PT EDon 05-03-2020 PT ED HNO ID: [id number] Author: Kaylee JerryRn) ALFONSO Sunshine Service: ? [...] LEARNING: None PHYSICAL LIMITATIONS AFFECTING LEARNING: None [facility] SURGICAL PATHOLOGYon 020 SURGICAL PATHOLOGY Specimen originated from [facility] Specimen #: [id number] Submitting Physician: STEVEN GUEVARA JR, MD FINAL DIAGNOSIS Femoral head, right, arthroplasty - Degenerative joint disease. SEK/KELVIN/td 05/08/2020 Billy Her MD (Electronic Signature) SPECIMEN [...] reamings. The additional tissue appears grossly unremarkable. 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 ARH/adb 05/04/2020 [place] [address] Date of Report: 05/09/2020 Date of Procedure: 05/03/2020 Date of Receipt: 05/03/2020 Submitted by: STEVEN GUEVARA JR, MD Location: [facility] Diagnostic interpretation performed at [facility], [address] [place] [address]. CLIA Number: [id number] Normal [facility] Comment on above: Performed [...] IMPRESSION: Status post hip arthroplasty, normal alignment School Psychologist: ARPIT Transcribe Date/Time: May 03 2020 4:05P Dictated by : JUAN LUIS RUSSELL MD This examination was interpreted and the report reviewed and electronically signed by: JUAN LUIS RUSSELL MD on May 03 2020 4:07PM EST [id number] [facility] ----- ALISIA CORREA ([id number]) 1960 M Date Time Provider Department 05/02/20 [...] Hives Date Reviewed: 04/24/2020 Reviewed by: Britney ([facility]) [place] - Fully Assessed Reason for Visit: [...] More... Hyperlipidemia [E78.5] 12/07/2017 More... Ulcerative lesion [UJZ8138] 12/07/2017 07/21/2019 Shoulder arthritis [M19.019] 12/29/2017 Status [...] Encounter Status:Closed by VJ JORGE on 05/02/20 [facility] NURSING PROGon 04-25-2020 NURSING PROG HNO ID: [id number] Author: Niyah Hinkle (Rn) ALFONSO Golden Service: [...] Golden RN April 30, 2020 2:36 PM [facility] Type and SCR (30D)on 020 ABO/RH(D) Negative [facility] HOSPon 04-12-2020 HOSP Patient:Eddi Correa MRN: [...] unknown significance) [D47.2] PD (Parkinson's disease) ([facility]) [G20] Dysphagia [R13.10] Psychosis due to Parkinson's disease ([facility]) [G20] Osteoarthritis of left hip [M16.12] Open [...] have to be cancelled. Progress Notes (PT [employer]): Tomeka Reyes 04/19/2020 4:51 PM Signed [facility] ([phone])on 05/07/20 @ 2:45. They want patient to arrive 10 to 15 min early. Fax PT order to [phone]. Normal [facility] Basic Metabolic Panlon 11-09 Anion gap [Moles/Vol] 8 mmol/L Low 9-18 [facility] Calcium [Mass/Vol] 8.6 mg/dL Normal 8.5-10.2 [facility] Chloride [Moles/Vol] 101 mmol/L Normal 97-105 [facility] CO2 [Moles/Vol] 30 mmol/L Normal 22-30 [facility] Creatinine [Mass/Vol] 1.02 mg/dL Normal 0.73-1.22 [facility] eGFR- Amer. >60 Normal [facility] GFR/1.73 sq M predicted among non-blacks MDRD (S/P/Bld) [Vol rate/Area] mL/min/{1.73_m2} Normal [facility] Comment on above: Result Comment: eGFR (Estimated [...] GFR. Glucose [Mass/Vol] 110 mg/dL High 74-99 [facility] Comment on above: Result Comment: The [place] Diabetes Association (ADA) provides guidance for cutoff [...] Standards of Medical Care in Diabetes 2016, [place] Diabetes Association. Diabetes Care. 2016.39(Suppl 1). Potassium [Moles/Vol] 4.1 mmol/L Normal 3.7-5.1 [facility] Sodium [Moles/Vol] 139 mmol/L Normal 136-144 [facility]spital Urea nitrogen [Mass/Vol] 18 mg/dL Normal 9-24 [facility] CBCon 11-09-2019 Absolute nRBC <0.01 Normal <0.01 [facility] al Erythrocyte distribution width (RBC) [Ratio] 13.7 % Normal 11.5-15.0 [facility] Hematocrit (Bld) [Volume fraction] 39.6 % Normal 39.0-51.0 [facility] Hemoglobin (Bld) [Mass/Vol] 12.5 g/dL Low 13.0-17.0 [facility] MCH (RBC) [Entitic mass] 30.2 pG Normal 26.0-34.0 [facility] MCHC (RBC) [Mass/Vol] 31.6 g/dL Normal 30.5-36.0 [facility] MCV (RBC) [Entitic vol] 95.7 fL Normal 80.0-100.0 [facility] Platelet mean volume (Bld) [Entitic vol] 11.8 fL Normal 9.0-12.7 [facility] l Platelets (Bld) [#/Vol] 129 10*3/uL Low 150-400 [facility] RBC (Bld) [#/Vol] 4.14 10*6/uL Low 4.20-6.00 [facility] WBC (Bld) [#/Vol] 6.62 10*3/uL Normal 3.70-11.00 [facility] CONSULT PROGon 11-09-2019 CONSULT PROG HNO ID: [id number] Author: Lenora Alarcon Service: Hospital Medicine Author [...] Associate Staff, Department of Hospital Medicine Clinical Crop Production Advisordog licenser [facility] Medicine, [facility] Pager [phone] / [phone] [facility] NURSING PROGon 11-09-2019 NURSING PROG HNO ID: [id number] Author: Renae (Rn) ALFONSO Greco Service: ? Author Type: Registered Nurse Type: Nursing Progress Note Filed: 11/09/2019 8:43 PM Note Text: Nursing Progress Note Patient Name: Alisia Correa [facility] Daily Note: Pt up in chair awake [...] wheelchair. This note was completed by: Renae Greco, ALFONSO [facility] PLAN OF CAREon 11-09-2019 PLAN OF CARE HNO ID: [id number] Author: Rita Arias (Window Shade Cutter And Mounter) Service: ? 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 Patient to use [facility] Bedside Delivery - NO prefer own pharmacy Insurance Information as follows: 2. Insurance card on file - N/A 3. Credit card for payment - N/A [facility] PROGRESSon 11-09-2019 PROGRESS HNO ID: [id number] Author: Demetris Naik Service: ? Author Type: Physician Doctor Of Radiology Type: Progress Notes Filed: 11/09/2019 7:49 AM [...] discharge planning-plan for DC home today with [facility] if independent with physical therapy [...] Complication, Without Long-Term Current Use of Insulin ([facility]) Chronic Pain Syndrome Copd With Chronic Bronchitis ([facility]) Arthritis of Knee Primary Osteoarthritis of Right Knee Oa (Osteoarthritis) of Knee Glenohumeral Arthritis, Left Essential Tremor Asthma Diabetes Mellitus ([facility]) Essential Hypertension Hyperlipidemia Shoulder Arthritis Status Post Replacement of Left Shoulder Joint Crps (Complex Regional Pain Syndrome Type I) Nicotine use disorder, F17.2 Obesity, Class I, Bmi 30-34.9 Multilevel Spine Pain Iron Deficiency Anemia Secondary to Inadequate Dietary Iron Intake Complete Tear of Right Rotator Cuff Spinal Cord Stimulator Status Mgus (Monoclonal Gammopathy of Unknown Significance) Pd (Parkinson's Disease) ([facility]) Dysphagia Psychosis Due to Parkinson's Disease ([facility]) Osteoarthritis of Left Hip Open Wound [...] 0747 -- 11/08/19 1315 pneumatic compression stockings (ar,in) 11/08/19 1315 graduated compression stockings (ar,in) 11/08/19 1315 graduated compression stockings (ar,in) 11/08/19 1315 activity - mobilize patient (ar,in) 11/08/19 1315 activity - mobilize patient (fl,oh) 11/08/19 1315 activity - mobilize patient (fl,oh) VTE Prophylaxis: VTE prophylaxis appropriate POST OPERATIVE COMPLICATIONS: Complicated by: uneventful/none SIGNATURE: Demetris Naik PA-C PATIENT NAME: Alisia Correa DATE: November 09, 2019 TIME: 7:48 AM PAGER/CONTACT #: [phone] [facility] PT EDon 11-09-2019 PT ED HNO ID: [id number] Author: Shelley Givens (Pharmacist) Service: Pharmacy Author [...] medications were sent to e- [facility] [address] [facility] - [phone] [address] [facility] [address] ? aspirin, enteric coated 81 mg EC tablet ? oxyCODONE IR 5 mg immediate release tablet You can get these medications from any pharmacy You don't need a prescription for these medications ? acetaminophen 325 mg tablet Normal [facility] PT ED HNO ID: [id number] Author: Shelley Givens (Pharmacist) Service: Pharmacy Author [...] Indicates understanding of topic SHELLEY GIVENS PHARMACIST [facility] THERAPY NT 11-09-2019 THERAPY [facility] ID: [id number] Author: Oumou Witt (PtSajan Mccarthy Service: Physical Therapy Author Type: Physical Therapist Type: Therapy (PT/OT/Speech/Resp) Filed: 11/09/2019 2:56 PM Note Text: Physical Therapy Treatment SERVICE DATE: 11/09/2019 SERVICE TIME: 1105 to 1150 ROOM: [place] [address] Recommended Discharge Disposition: Outpatient Physical Therapy Anticipated [...] Diagnosis: Reduced mobility-other Interventions Provided: Gait Training (00130);Therapeutic Exercise (80068) Therapeutic Exercise (92263) Treatment Minutes: 15 1 unit Skilled Intervention(s): [...] 3x/day, 2 sets for 10 Gait Training (96285) Treatment Minutes: 30 2 units Skilled Intervention(s): [...] November 09, 2019 TIME: 2:52 PM Normal [facility] THERAPY NT HNO ID: [id number] Author: Katharina (Ot) Shanti Service: Occupational Therapy Author Type: Occupational Therapist Type: Therapy (PT/OT/Speech/Resp) Filed: 11/09/2019 2:29 PM Note Text: Occupational Therapy Evaluation SERVICE DATE: 11/09/2019 SERVICE TIME: 849 to 945 ROOM: [place] [address] Recommended Discharge Disposition: Home Anticipated Discharge Needs: [...] living (ADL);Muscle Weakness (generalized) Interventions Provided: Evaluation;Self [facility] (16219) $ Evaluation-Low (42153) Billed Units: 1 unit Self [facility] Management (55193) Treatment Minutes: 38 3 units Skilled Intervention(s): [...] body dressing. Instructions and demonstration with a pile driver operator, sock aide, dressing stick and long [...] DATE: November 09, 2019 TIME: 12:33 PM [facility] ANES Brian 11-08-2019 ANES POST HNO ID: [id number] Author: Ashley Guerrier Service: Anesthesiology Author Type: Physician Type: Anesthesia PostOp Filed: 11/08/2019 1:17 PM Note Text: POST ANESTHESIA EVALUATION NOTE SERVICE DATE: 11/08/2019 SERVICE TIME: 131 : 1960 Vitals: 11/08/19 0823 11/08/19 1133 [...] 08, 2019 TIME: 1:16 PM PAGER/CONTACT #: [facility] ANES PREOPon 11-08-2019 ANES PREOP HNO ID: [id number] Author: Ashley Guerrier Service: Anesthesiology Author Type: [...] Complication, Without Long-Term Current Use of Insulin ([facility]) Chronic Pain Syndrome Copd With Chronic Bronchitis ([facility]) Arthritis of Knee Primary Osteoarthritis of [...] Gammopathy of Unknown Significance) Pd (Parkinson's Disease) ([facility]) Dysphagia Psychosis Due to Parkinson's Disease ([facility]) Osteoarthritis of Left Hip PAST MEDICAL HISTORY Diagnosis Date - Durbin's esophagus - Closed fracture of rib(s), unspecified Rib fracture - Diabetes ([facility]) - Esophageal reflux BARRETS [...] Laterality Date - COLONOSCOP W/ OR W/O [facility] SPEC Colonoscopy - EGD W/O OR [...] SCM 08/06/2010 Performed by GEORGINA SEAMAN at [facility] - TOTAL KNEE REPLACEMENT Left 2012 with [...] November 08, 2019 TIME: 8:55 AM CSN: [id number] [facility] Basic Metabolic Panlon 11-08 Anion gap [Moles/Vol] 11 mmol/L Normal 9-18 [facility] Calcium [Mass/Vol] 8.9 mg/dL Normal 8.5-10.2 [facility] Chloride [Moles/Vol] 106 mmol/L High 97-105 [facility] CO2 [Moles/Vol] 25 mmol/L Normal 22-30 [facility] Creatinine [Mass/Vol] 0.95 mg/dL Normal 0.73-1.22 [facility] eGFR- Amer. >60 Normal [facility] GFR/1.73 sq M predicted among non-blacks MDRD (S/P/Bld) [Vol rate/Area] mL/min/{1.73_m2} Normal [facility] Comment on above: Result Comment: eGFR (Estimated [...] GFR. Glucose [Mass/Vol] 125 mg/dL High 74-99 [facility] Comment on above: Result Comment: The [place] Diabetes Association (ADA) provides guidance for cutoff [...] Standards of Medical Care in Diabetes 2016, [place] Diabetes Association. Diabetes Care. 2016.39(Suppl 1). Potassium [Moles/Vol] 4.3 mmol/L Normal 3.7-5.1 [facility] Sodium [Moles/Vol] 142 mmol/L Normal 136-144 [facility] Urea nitrogen [Mass/Vol] 23 mg/dL Normal 9-24 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 Yes Is Patient Psychosocially Complex?: No ASSESSMENT AND PLAN: Medical Needs: Medical Needs: None Psychosocial Needs: Psychosocial Needs: None FREEDOM OF CHOICE EXPLAINED: [place] of Choice Given: No Reason Not Given: No placements necessary POTENTIAL TRANSITION PLANS Outpatient Therapy Patient has equipment. Patient is scheduled for outpatient therapy on 11/11 at [place]. SIGNATURE: Ashley Sands RN PATIENT NAME: Alisia Correa DATE: November 08, 2019 TIME: 3:01 PM PAGER/CONTACT #: [phone] Normal [facility] CBCon 11-08-2019 Absolute nRBC <0.01 Normal <0.01 [facility] Erythrocyte distribution width (RBC) [Ratio] 13.9 % Normal 11.5-15.0 [facility] Hematocrit (Bld) [Volume fraction] 44.3 % Normal 39.0-51.0 [facility] Hemoglobin (Bld) [Mass/Vol] 14.2 g/dL Normal 13.0-17.0 [facility] MCH (RBC) [Entitic mass] 30.4 pG Normal 26.0-34.0 [facility] MCHC (RBC) [Mass/Vol] 32.1 g/dL Normal 30.5-36.0 [facility] MCV (RBC) [Entitic vol] 94.9 fL Normal 80.0-100.0 [facility] Platelet mean volume (Bld) [Entitic vol] 11.7 fL Normal 9.0-12.7 [facility] Platelets (Bld) [#/Vol] 159 10*3/uL Normal 150-400 [facility] RBC (Bld) [#/Vol] 4.67 10*6/uL Normal 4.20-6.00 [facility] WBC (Bld) [#/Vol] 10.50 10*3/uL Normal 3.70-11.00 [facility] CONSULTon 11-08-2019 CONSULT HNO ID: [id number] Author: Bhupendra Chacon Service: Podiatry Author Type: [...] Yes 3. COPD with chronic bronchitis ([facility]) POA: Yes 4. Hyperlipidemia POA: Yes 5. PD (Parkinson's disease) (HCC) POA: Yes 6. Nicotine use disorder, F17.2 [...] Laterality Date - COLONOSCOP W/ OR W/O [facility] SPEC Colonoscopy - EGD W/O OR [...] intact Lower extremity tested with 10 gram [place] monofilament No evidence of diabetic peripheral sensory [...] to be well informed. Bhupendra Chacon DPM [facility] CONSULT HNO ID: [id number] Author: SHRAVAN Christian Service: Hospital Medicine Author Type: Physician Doctor Of Radiology Type: Consults Filed: 11/08/2019 2:36 PM Note Text: DEPARTMENT OF HOSPITAL MEDICINE INITIAL CONSULT SERVICE DATE: 11/08/2019 SERVICE TIME: 1:14 PM Primary Care Physician: Ellen Crabtree DO NIGHT AND WEEKEND COVERAGE: Days: [phone], please page me for patient issues. Nights: [phone], please page [facility] Hospitalist Night coverage pager [phone] REASON FOR CONSULT: Medical Management REQUESTING PHYSICIAN: [...] with ambulation. States his son is a store operations manager but is unaware of his [...] Laterality Date - COLONOSCOP W/ OR W/O [facility] SPEC Colonoscopy - EGD W/O OR [...] - Levaquin [Levofloxa* Hives REVIEW OF SYSTEMS: QUALITY RN: history of Parkinson' s Disease RESP: history [...] without long-term current use of insulin ([facility]) POA: Yes Assessment AND Plan: - Hold Metformin while in house - SSI #1 - Accuchecks ac/hs - Carb control - Hypoglycemia protocol COPD with chronic bronchitis ([facility]) POA: Yes Assessment AND Plan: - Chronic, stable - Continue home meds Hyperlipidemia POA: Yes Assessment AND Plan: - Continue home meds PD (Parkinson's disease) ([facility]) POA: Yes Assessment AND [...] Device and Early Ambulation Disposition: Home with [facility] Plan of care discussed with: Provider, RN, Patient SIGNATURE: SHRAVAN Christian PATIENT NAME: Alisia Correa DATE: November 08, 2019 TIME: 1:15 PM PAGER/CONTACT #: [phone] [facility] NURSING PROGon 11-08-2019 NURSING PROG HNO ID: [id number] Author: Jessica (Rn) ALFONSO Joe Service: Nursing Author Type: Registered Nurse Type: Nursing Progress Note Filed: 11/08/2019 7:25 PM Note Text: Nursing Progress Note Patient Name: Alisia Correa [facility] Daily Note: 1330 Pt admitted to [...] 1530 Pt states adequate relief from pain. 4- medciated with 10mg Po oxycodone for c/o pain. Will monitor. This note was completed by: Jessica Joe RN [facility] OPERATIVE NOon 11-08-2019 OPERATIVE NO HNO ID: [id number] Author: Steven Guevara Jr. Service: Orthopaedic Surgery Author Type: Physician Type: Operative Report Filed: 11/08/2019 2:08 PM Note Text: [facility] OPERATIVE REPORT PATIENT NAME: Alisia Correa AGE: [age] year old LOG ID: [id number] Surgery Date: 11/08/2019 SURGEON: Steven Guevara M.D. CERTIFIED LOW VISION THERAPIST: Vj Jorge PA-C, his assistance consisted of [...] outlined above. The patient was seen by [facility]/ Internal Medicine for pre-operative optimization. Charley-operative blood management and the potential for blood transfusion were discussed with risks and options clearly outlined. The patient has consented to the use of banked allogenic blood if medically necessary. IMPLANTS: [employer] Total Hip System SIZE TYPE Acetabulum [...] dislocated. Proximal femoral osteotomy was performed. The experimental box tester osteotome was utilized to lateralize the starting [...] November 08, 2019 TIME: 11:07 AM Normal [facility] 11-08-2019 PLAN OF CARE HNO ID: [id number] Author: Shelley Givens (Pharmacist) Service: Pharmacy Author [...] Itching - Levaquin [Levofloxa* Hives Preferred Pharmacy: [facility] [place] [address] [address] [facility] - [phone] Current 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 Medications: Prior to Admission medications as of [...] GIVENS, PHARMACIST November 08, 2019 1:53 PM [facility] PROGRESSon 11-08-2019 PROGRESS HNO ID: [id number] Author: Niesha (Rt) Elpidio Cobb Service: ? Author Type: Big Machine Consultant Type: Progress Notes Filed: 11/08/2019 12:05 PM [...] Stiles RT November 08, 2019 12:05 PM [facility] PT EDon 11-08-2019 PT ED HNO ID: [id number] Author: Catherine (Rn) Sb, RN Service: Nursing Author Type: Registered Nurse [...] AFFECTING LEARNING: None Electronically Signed By: Catherine Basurto, RN In Department: [facility] SURGERY Normal [facility] SURGICAL PATHOLOGYon 020 SURGICAL PATHOLOGY Specimen originated from [facility] Specimen #: [id number] Submitting Physician: STEVEN GUEVARA JR, MD FINAL [...] Sectioning does not reveal any avascular necrosis. 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 KATRIN/kathy 11/08/2019 Gross examination performed at [facility], [facility] [place] [address] Date of Report: 11/14/2019 Date of Procedure: 11/08/2019 Date of Receipt: 11/08/2019 Submitted by: STEVEN GUEVARA JR, MD Location: [facility] Diagnostic interpretation performed at [facility], [facility] [address], [place] [address]. CLIA Number: [id number] Normal [facility] Comment on above: Performed By: #### S #### See report for performing lab information. THERAPY NTon 11-08-2019 THERAPY NT HNO ID: [id number] Author: Oumou Witt (Pt) Fabio Service: Physical Therapy Author Type: Physical Therapist Type: Therapy (PT/OT/Speech/Resp) Filed: 11/08/2019 2:54 PM Note Text: Physical Therapy Evaluation SERVICE DATE: 11/08/2019 SERVICE TIME: 1325 to 1415(8 min for pharmacist to review meds) ROOM: [place] [address] Recommended Discharge Disposition: Outpatient Physical Therapy Recommended [...] Diagnosis: Reduced mobility-other Interventions Provided: Evaluation;Therapeutic Exercise (46401);Gait Training (83733);Therapeutic Activity (77264) $ Evaluation-Low (08024) Billed Units: 1 unit Therapeutic Exercise (09542) Treatment Minutes: 12 1 unit Skilled Intervention(s): [...] position: LAQ X10 B LE Therapeutic Activity (14843) Treatment Minutes: 3 Skilled Intervention(s): Instructed patient in supine to sit pushing with upper extremities to sit up Gait Training (66230) Treatment Minutes: 12 1 unit Skilled Intervention(s): [...] Type: WIS with shower chair, grab bars, [facility] Laundry: 1ST FLOOR Equipment Owned: Cane;Hand [...] DATE: November 08, 2019 TIME: 2:49 PM [facility] XR PELVIS 1V APon 11-08-2019 XR [...] IMPRESSION: Left total hip prosthesis in place. School Psychologist: ARPIT Transcribe Date/Time: Nov 08 2019 12:43P Dictated by : LIGIA EDWARDS MD This examination was interpreted and the report reviewed and electronically signed by: LIGIA EDWARDS MD on Nov 08 2019 12:44PM EST [id number] [facility] NURSING PROGon 10-24-2019 NURSING PROG HNO ID: [id number] Author: Geneva (Rn) ALFONSO Goins Service: Nursing [...] Goins RN October 24, 2019 1:40 PM [facility] Type and SCR (30D)on 019 ABO/RH(D) Negative [facility] CNCOon 01-01-2018 CNCO Letter TextChaarinjuanito Correa Opqgpikc[address]14 [place], [place] [address]Promisejuanito Cox Ervmx[address] [address]Nnvx Mr. Correa:The nurses and staff of the 5th floor Orthopedic nursing unit at [facility], [facility], hope this letter finds you feelingwell and [...] please feel free to contact me, Dianna Villarrael at [phone] [email or web address].[place], you will receive a survey in the mail asking you to rate thecare you received while in the hospital. Please take the time to completeand send back the survey, as it is essential to our continued success. Ipersonally review all the results and would appreciate your feedback.Thank you in advance for your participation and thank you for choosing [facility] for your healthcare needs. Sincerely,Dianna Villarreal, MSN, RNNurse Zhwjqpj5ws Floor OrthopedicKaiser Permanente Medical [phone] Normal [facility] Basic Metabolic Panlon 12-31 Anion gap 9 mmol/L Normal 0-15 [facility] Calcium 8.3 mg/dL Low 8.5-10.5 [facility] Chloride 104 mmol/L Normal 98-110 [facility] CO2 25 mmol/L Normal 23-32 [facility] Creatinine 0.98 mg/dL Normal 0.7-1.4 [facility] Glucose mass conc 125 mg/dL High 65-100 [facility] Potassium molar conc 3.5 mmol/L Normal 3.5-5.0 [facility] Sodium 138 mmol/L Normal 135-146 [facility] Urea nitrogen 15 mg/dL Normal 8-25 [facility] CASE MANAGEMon 12-31-2017 CASE MANAGEM HNO ID: [id number] thor: Peace (Rn) JAMIE Bynumervice: Case ManagementAuthor [...] completed, dc summaryto be faxed, spoke milagros BustosIGNATURE: Peace Bynum RN PATIENT NAME: Alisia Sullivan: December 31, 2017 : 10:40 AM PAGER/CONTACT #: [phone] Normal [facility] CBCon 12-31-2017 Erythrocyte distribution width Auto Ratio (RBC) 15.3 % High 11.5-15.0 [facility] Erythrocytes (RBC) 3.45 10*6/uL Low 4.20-6.00 [facility] Hematocrit (HCT) 29.7 % Low 39.0-51.0 [facility] Hemoglobin mass conc (Bld) 9.6 g/dL Low 13.0-17.0 [facility] MCH 27.8 pG Normal 26.0-34.0 [facility] MCHC mass conc (RBC) 32.3 g/dL Normal 30.5-36.0 [facility] MCV 86.1 fL Normal 80.0-100.0 [facility] Platelet mean volume (PMV) 13.3 fL High 9.0-12.7 [facility] Platelets 112 10*3/uL Low 150-400 [facility] Comment on above: Result Comment: Samp le checked for a clot. WBC (Leukocytes) 6.00 10*3/uL Normal 3.70-11.00 [facility] CNDSon 12-31-2017 CNDS HNO ID: [id number] thor: Candida (Res) StarodService: Orthopaedic SurgeryAuthor Type: [...] Insulin (Hcc)Chronic Pain SyndromeCopd With Chronic Bronchitis ([facility])Arthritis of KneePrimary Osteoarthritis of Right KneeOa (Osteoarthritis) [...] [facility]. [facility] Surgery was scheduledand on 12/29/2017 [...] Value12/31/2017 9.6 (L)12/30/2017 9.7 (L)12/07/2017 13.4Hematocrit (%)Date Value12/31/2017 29.7 (L)12/30/2017 29.6 (L)12/07/2017 43.5Discharge Antibiotics: None [...] NREST S Bldg01/12/2018 10:00 AM Evangelist JerryRn) ALFONSO Gilliland ORTHQUINTON [facility]02/08/2018 2:00 PM XR EUCLID RGNEU [...] BM > 48 hrs.Print RX, Disp-120 mL, E-1dxrkyfaase-cdlwqhevsh (SYMBICORT) 160-4.5 mcg/actuation inhalerInhale 2 Puffs as instructed twice daily.Med Update, R-0DULoxetine (CYMBALTA) 60 mg capsuleTake 1 capsule by mouth once daily.Med Update, R-0sucralfate (CARAFATE) 1 gram tabletTake 1 tablet by mouth four times daily.Med Update, I-9POCXDJTJ-LEM/FA/LYCOPE N/LUTEIN (CENTRUM SILVER ULTRA MEN'S ORAL)Take 1 tablet by mouth once daily.Historical Medamitriptyline 25 mg ORAL tabletTake 50 mg by mouth daily at bedtime.Historical Med, R-0tamsulosin (FLOMAX) 0.4 mg ORAL Ez05Rrhh 2 capsules by mouth daily at bedtime.Mail [...] December 31, 2017 : 6:26 AM PAGER: [phone] [facility] NURSING PROGon 12-31-2017 NURSING PROG HNO ID: [id number] thor: Charlotte Crowe (Rn) Hipolito, RNService: (none)Author Type: Registered NurseType: Nursing Progress NoteFiled: 12/31/2017 2:04 PMNote Text: Nursing Progress NotePatient Name: Alisia CorreaMRN: [id number] [facility] [place] D[place] Note:0800 awake, alert for am [...] note was completed by: Charlotte Mcmillan RN [facility] PROGRESSon 12-31-2017 PROGRESS HNO ID: [id number] thor: Macrina (Kasuhal) DionService: General Internal MedicineAuthor Type: Nurse PractitionerType: Progress NotesFiled: 12/31/2017 5:07 PMNote Text:INPATIENT PROGRESS NOTESName: Alisia CorreaMRN: [id number] of Service: December 31, 2017SUBJECTIVE: Seen and examined at bedside.Patient states pain is level 4-5 now. He denies any dizziness/lightheadedness . He denies nausea orvomiting, chest pain, palpitations or shortness of breath.PERTINENT ROS:All others reviewed and negative except as per HPIMEDICATIONS:No current hospital medications on file.PHYSICAL EXAM: [id number]: 91/65 119/63 110/62 105/66Pulse: 88 95 75 [...] with Dr. Blair.Macrina Paddy, CNPMarch 20175:00 PM [facility] PROGRESS HNO ID: [id number] thor: Candida (Res) MahmoodService: Orthopaedic SurgeryAuthor Type: ResidentType: Progress NotesFiled: 12/31/2017 6:26 AMNote Text:ORTHOPAEDIC SURGERY PROGRESS NOTEPatient: Alisia Cox SunnyMRN: [id number]: Procedure(s) (LRB):ARTHROPLASTY TOTAL SHOULDER; W/ GLENOID AND [...] labsMost recent imagingBilal MD Bi12/30/2017Orthopaedic Surgery PGY-2Pager: [phone] [facility] THERAPY NTon 12-31-2017 THERAPY NT HNO ID: [id number] thor: Cyn (Ot) Marcuservice: Occupational TherapyAuthor Type: Occupational TherapistType: Therapy (PT/OT/Speech/Resp)Filed: 01/04/2018 4:15 PMNote Text:Occupational Therapy TreatmentSERVICE DATE: 12/31/2017SERVICE TIME: 1300 to 1338RO[address]: [address]NH-212-4Bnmsvittgtj Discharge Disposition: HomeAnticipated Discharge Needs: Physical Assist [...] mobility-other;Decreased activities of dailyliving (ADL)Interventions Provided: Self [facility] (08443);TherapeuticExerci se (08671)Therapeutic Exercise (88520) Treatment Minutes: 101 unitSkilled Intervention(s): Instruction in therapeutic exerciseFacilitation of muscle control, optimal recruitment and alignmentEducation in PROM in supine to L shoulder to 90 degrees. present and follow instruction, with proper techniqueSelf [facility] (13792) Treatment Minutes: 282 unitsSkilled Intervention(s): Instructed in [...] INDU Ray/Kenny PATIENT NAME: Alisia CorreaDATE: December 31, 2017 : 2:25 PM PAGER: [phone] [facility] CASE MANAGEMon 12-30-2017 CASE MANAGEM HNO ID: [id number] thor: Peace (Rn) JAMIE Bynumervice: Case ManagementAuthor [...] 30, 2017 : 11:07 AM PAGER/CONTACT #: [phone] [facility] CASE MGT INIT [facility] 2017 CASE MGT INIT [facility] HNO ID: [id number] thor: Peace (Rn) JAMIE Bynumervice: Case ManagementAuthor Type: Registered NurseType: Care Mgt Initial AssessmentFiled: 12/30/2017 11:07 AMNote Text:CARE MANAGEMENT: ASSESSMENT AND DISCHARGE PLANSERVICE DATE: 12/30/2017SERVICE TIME: 9:50amPRIMARY CARE PHYSICIAN:Ellen Crabtree, DOPhone: LADSRNCTX STATUS: InpatientNeeds Prior to Discharge: Ready for DischargeMEDICAL: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 Stated Goals:To improve my functional statusHealth Insurance: [facility] Bennett ServicesHealth Issues Impacting Discharge Plan: TSALast Admission [...] Contact: Extended Emergency Contact InformationPrimary Emergency Contact: Fran Correa: [address] [place], [place] [address]Kall Yhwljyze: SpouseSupportive: NoOther Important Patient Contacts: NoneCaregiver Assessment:Caregiver [...] - 0I feel financially burdened by my xpo-dd-gvepfh expenses for myprescription medication: Agree mostly - [...] fallsPsychosocial Needs: NoneFREEDOM OF CHOICE EXPLAINED:N/APOTENTIAL TRANSITION HBPMXZksw33 yo male admitted for TSA. 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 Lives at home w.Spouse who is able to assist as needed. No falls or safety concerns athome. No snf or hhc in the past. PCP is Dr Crabtree whom [facility]. Therapy recommends home w./ HEP. Anticipate dc home post opday 1 pending medical and therapy clearance. Cm to cont to followSIGNATURE: Peace Bynum RN PATIENT NAME: Alisia CorreaDATE: December 30, 2017 : 11:00 AM PAGER/CONTACT #: [phone] Normal [facility] CBCon 12-30-2017 Erythrocyte distribution width Auto Ratio (RBC) 15.2 % High 11.5-15.0 [facility] Erythrocytes (RBC) 3.44 10*6/uL Low 4.20-6.00 [facility] Hematocrit (HCT) 29.6 % Low 39.0-51.0 [facility] Hemoglobin mass conc (Bld) 9.7 g/dL Low 13.0-17.0 [facility] MCH 28.2 pG Normal 26.0-34.0 [facility] MCHC mass conc (RBC) 32.8 g/dL Normal 30.5-36.0 [facility] MCV 86.0 fL Normal 80.0-100.0 [facility] Platelet mean volume (PMV) 12.6 fL Normal 9.0-12.7 [facility] Platelets 128 10*3/uL Low 150-400 [facility] Comment on above: Result Comment: Samp le checked for a clot. WBC (Leukocytes) 7.10 10*3/uL Normal 3.70-11.00 [facility] CONSULTon 12-30-2017 CONSULT HNO ID: [id number] thor: Reagan Floreservice: General Internal MedicineAuthor Type: PhysicianType: ConsultsFiled: 12/30/2017 9:00 PMNote Text:HISTORY AND PHYSICAL EXAMINATIONPATIENT NAME: Alisia CorreaMRN: [id number] DATE: 12/30/2017SERVICE TIME: 1030PRIMARY CARE PHYSICIAN: NANCY [...] HISTORYProcedure Laterality Date- [facility]COP [facility]/ [facility] Colonoscopy- EGD W/O OR W/BRUSH/WASH [...] Disp: 30 tablet Rfl: 2 12/28/2017 at 1930acetaminophen (TYLENOL) 325 mg tablet Take 2 tablets [...] meals and at bedtime. Disp: Rfl: 12/28/2017 [id number] (VIAGRA) 100 mg tablet Take 100 mg [...] mouth once daily.Disp: Rfl: 0 12/28/2017 at 1929sucralfate (CARAFATE) 1 gram tablet Take 1 tablet by mouth four timesdaily. Disp: Rfl: 0 more then 1 weekMULTIVIT-MIN/FA/LYCOP EN/LUTEIN (CENTRUM SILVER ULTRA MEN'S ORAL) Take 1tablet by mouth once daily. Disp: Rfl: more then 1 week agoamitriptyline 25 mg ORAL tablet Take 50 mg by mouth daily at bedtime.Disp: Rfl: 0 12/28/2017 at 193tamsulosin (FLOMAX) 0.4 mg ORAL Cp24 Take 2 capsules by mouth daily atbedtime. Disp: 180 capsule Rfl: 3 12/28/2017 at 193Albuterol Sulfate 1.25 mg/3 mL INHALATION nebulizer solution VIA NEBULIZER PRN Disp: Rfl: 3 days agoacarbose(PRECOSE 25 MG TAB) Take one(1) tablet three(3) times daily. Disp:1 month supply Rfl: 3 12/28/2017 at 193potassium citrate (UROCIT-K 10) 10 mEq ORAL TbSR [...] reviewed and negative other than HPI.PHYSICAL EXAM: 12/30/18015BP: 99/58 95/56 106/61Pulse: 77 71 74Resp: 18 [...] focal deficits.DATA:CBC, Coags, BMP, Mg, PhosRecent Labs 444WBC 7.10HB 9.7*HCT 29.6*PLT 128*ASSESSMENT AND PLAN:Postoperative anemia [...] in the care of your patient.Macrina Thomason, [facility] 201711:58 AMmeds reordered. Check bs. Pain is okI have seen the patient and verified the exam. I have personally reviewedall labs and imaging results. I have discussed with the COMMERCIAL CONSTRUCTION PROJECT MANAGER and I haveparticipated in sifuentes components.I agree with the note as documented with additional comments if needed.The assessment and plan as outlined are reflection of our discussion.Reagan Blair MD [facility] NURSING PROGon 12-30-2017 NURSING PROG HNO ID: [id number] thor: Sotero JerryRn) Allison Chavarria: (none)Author Type: Registered NurseType: Nursing Progress NoteFiled: 12/30/2017 10:14 PMNote Text: Nursing Progress NotePatient Name: Alisia CorreaMRN: [id number] Location: [place] [address]-* Dai ly Note: Patient is resting in [...] note was completed by: SOTERO CHAVARRIA RN [facility] NURSING PROG HNO ID: [id number] thor: Cece JerryRn) Fronczek, RNService: (none)Author Type: Registered NurseType: Nursing Progress NoteFiled: 12/30/2017 4:53 PMNote Text: Nursing Progress NotePatient Name: Alisia CorreaMRN: [id number] Location: [place]/ [place] Dai ly Note: pt c/o pain to left underarm, med with percocet 2 tabs po, rtshoulder dsg intact with fresh ice pack applied, on q ball intact/ patent,lef shoulder immobilizer on, jacqueline sequentials on bilat, vs stable, ptstates cannot go home today. Pt states that his works to 6 pm and helive 2 hours away from [id number] pt resting in bed with no change in status, no needs at this timeThis note was completed by: Cece Vera RN [facility] PROGRESSon 12-30-2017 PROGRESS HNO ID: [id number] thor: Candida (Res) MahmoodService: Orthopaedic SurgeryAuthor Type: ResidentType: Progress NotesFiled: 12/30/2017 6:27 AMNote Text:ORTHOPAEDIC SURGERY PROGRESS NOTEDATE: 12/30/2017TIME: 5:54 AMPatient: Alisia CorreaMRN: [id number]: Procedure(s) (LRB):ARTHROPLASTY TOTAL SHOULDER; W/ GLENOID AND [...] Without Complication, Without Long-Term CurrentUse of Insulin ([facility])Chronic Pain SyndromeCopd With Chronic Bronchitis ([facility])Arthritis of KneePrimary Osteoarthritis of Right KneeOa (Osteoarthritis) of KneeGlenohumeral Arthritis, LeftEssential TremorAsthmaDiabetes Mellitus (Hcc)Essential HypertensionHyperlipidemi aUlcerative LesionShoulder ArthritisSUBJECTIVE:No acute issue overnight, Comfortable, pain is better controlled,afebrile, No CP/SOBOBJECTIVE:VITAL SIGNS:BMI: Body mass index is 33.49 kg/(m2). 156 12/30/18011BP: 101/68 99/58 95/56Pulse: 74 77 71Resp: 18Temp: [...] m/u/r/ax2+ radialLABS:CBC, Coags, BMP, Mg, PhosRecent Labs [id number] 7.10HB 9.7*HCT 29.6*PLT 128*DATA:Diagnostic tests reviewed for today's visit:Most recent labsMost recent imagingBilal MD Bi12/30/2017Orthopaedic Surgery PGY-2Pager: [phone] [facility] THERAPY NTon 12-30-2017 THERAPY NT HNO ID: [id number] thor: Cyn (Ot) PacoerService: Occupational TherapyAuthor Type: Occupational TherapistType: Therapy (PT/OT/Speech/Resp)Filed: 12/30/2017 4:30 PMNote Text:Occupational Therapy TreatmentSERVICE DATE: 12/30/2017SERVICE TIME: 1600 to 1610ROOM: [place] [id number] Discharge Disposition: HomeAnticipated Discharge Needs: Physical Assist [...] activities of dailyliving (ADL)Interventions Provided: Therapeutic Exercise (37406)Therapeutic Exercise (60883) Treatment Minutes: 101 unitSkilled Intervention(s): Facilitation of [...] ATURE: Cyn Willson OTR/L PATIENT NAME: Alisia CorreaDATE: December 30, 2017 : 4:29 PM PAGER: [phone] [facility] THERAPY NT HNO ID: [id number] thor: Cyn (Ot) Marcuservice: Occupational TherapyAuthor Type: Occupational TherapistType: Therapy (PT/OT/Speech/Resp)Filed: 12/30/2017 2:42 PMNote Text:Occupational Therapy EvaluationSERVICE DATE: 12/30/2017SERVICE TIME: 1055 to 1125ROOM: [address]CL-[id number] Discharge Disposition: HomeAnticipated Discharge Needs: Physical Assist [...] activities of dailyliving (ADL)Interventions Provided: Evaluation;Therapeutic Exercise (99251);Self CareHome Management (44649)$ Evaluation-Moderate (43304) Billed Units: 1 unitTherapeutic Exercise (32776) Treatment Minutes: 101 unitSkilled Intervention(s): Instruction in therapeutic exercise PROM Lshoulder to 90 degrees in supineEducation in AROM distal to shoulder after brace comes off at home mid elf [facility] Management (60438) Treatment Minutes: 131 unitSkilled Intervention(s): Instructed in [...] G CODE:OT 6 Clicks Score: 16 (12/30/17 7155)Self Care Current Status (G8987): CK (12/30/17 1055)Self [...] ATURE: INDU Ray/Kenny PATIENT NAME: Alisia Cox SunnyDATE: December 30, 2017 : 2:34 PM PAGER: [phone] [facility] THERAPY NT HNO ID: [id number] thor: Pj (Pt) SulenService: Physical TherapyAuthor Type: Physical TherapistType: Therapy (PT/OT/Speech/Resp)Filed: 12/30/2017 1:25 PMNote Text:Physical Therapy EvaluationSERVICE DATE: 12/30/2017SERVICE TIME: 1140 to 1205ROOM: [address]XO-[id number] Discharge Disposition: Outpatient Physical Therapy (whenappropriate)Anticipa jacqueline [...] Diagnosis: Reduced mobility-otherInterventio ns Provided: Evaluation;Gait Training (39361)$ Evaluation-Low (15048) Billed Units: 1 unitGait Training (76091) Treatment Minutes: 232 unitsSkilled Intervention(s): Pt ambulated [...] 30, 2017 : 1:10 PM PAGER/CONTACT #: [phone] [facility] ANES Brian 12-29-2017 ANES POST HNO ID: [id number] thor: Ilsa NgServeronicae: AnesthesiologyAuthor Type: AnesthesiologistType: Anesthesia PostOpFiled: 12/29/2017 6:14 [...] 29, 2017 : 6:14 PM PAGER/CONTACT #: [facility] ANES PREOPon 12-29-2017 ANES PREOP HNO ID: [id number] thor: Ilsa NgService: AnesthesiologyAuthor Type: AnesthesiologistType: Anesthesia PreOpFiled: 12/29/2017 6:14 PMNote Text:REGIONAL ANESTHESIOLOGY DAY OF SURGERY NOTEPATIENT NAME: Alisia CorreaMRN: [id number] :ALLERGIESAllergen Reactions- Avelox [Moxifloxaci* Rash, Hives, Itching, [...] Without Complication, Without Long-Term CurrentUse of Insulin ([facility])Chronic Pain SyndromeCopd With Chronic Bronchitis ([facility])Arthritis of KneePrimary Osteoarthritis of Right KneeOa (Osteoarthritis) [...] HISTORYProcedure Laterality Date- COLONOSCOP W/ [facility] SPEC Colonoscopy- EGD W/O OR W/BRUSH/WASH [...] 10 mg by mouth once daily. 12/28/2017at 1929 YestraMADol 200 mg 24 hr tablet Take 1 tablet by mouth once daily for 90days. 12/28/2017 at 193 Yesdocusate sodium (COLACE) 100 mg capsule Take [...] 2 tablets by mouth twice daily.12/28/2017 at 1929 YestiZANidine (ZANAFLEX) 4 mg tablet 12/28/2017 at 1929 Yesranitidine (ZANTAC) 150 mg tablet once daily. [...] injection (XYLOCAINE) 0.1-0.2 mLINTRADERMAL PRN Laura (Shravan) Meyerlactated ringers infusion 5-30 mL/hr INTRAVENOUS CONTINUOUS [...] Umanzor MDDATE: December 29, 2017TIME: 12:45 PM [facility] BRIEF OP NOTon 12-29-2017 BRIEF OP NOT HNO ID: [id number] thor: Bilal (Res) MahmoodService: Orthopaedic SurgeryAuthor Type: ResidentType: Brief Op NoteFiled: 12/29/2017 5:35 PMNote Text:SHOULDERBRIEF OPERATIVE / PROCEDURE NOTELOG ID: [id number]/Procedure Date: 12/29/2017Incision/Procedu re Start Time: 3:04 PMIncision Close/Procedure End Time: 5:22 PMSurgeon(s)/Proceduralis t(s) and Doctor Of Radiology(s):Surgeon(s) and Role: * Sergey Perez - Primary * Watson () Jose - Fellow * Candida Pat - Resident - AssistingPhysician Doctor Of Radiology: Chato Arrieta (Pa) IIProcedure(s):Procedure( s) (LRB):ARTHROPLASTY TOTAL [...] Perez as scheduled in clinic, with Kenny garnicax-Eric Pat MD12/29/2017Orthopaedic Surgery PGY-2Pager: [phone]: Candida Pat MD PATIENT NAME: Alisia CorreaDATE: December 29, 2017 : 5:33 PM PAGER/CONTACT #: [phone] [facility] NURSING PROGon 12-29-2017 NURSING PROG HNO ID: [id number] thor: Ny (Rn) JAMIE Hernandezervice: NursingAuthor Type: Registered NurseType: Nursing Progress NoteFiled: 12/30/2017 6:13 AMNote Text: Nursing Progress NotePatient Name: Alisia CorreaMRN: [id number] Location: [place]/ [place] Dai [place] Note: Assumed care, pt sitting [...] note was completed by: NY HERNANDEZ RN [facility] NURSING PROG HNO ID: [id number] thor: Cece (Rn) Jody, JAMIEervice: (none)Author Type: Registered NurseType: Nursing Progress NoteFiled: 12/30/2017 10:50 AMNote Text: Nursing Progress NotePatient Name: Alisia CorreaMRN: [id number] Location: [place] Dai ly Note: pt arrived from PACU via bed, A+OX3, oriented pt to room andcall light, left shoulder dsg with immobilizer and ice pack dry andintact, pillow placed behind left elbow, on q ball intact/ clamped, ptdenies pain at this time, vs stable, [place] at bedside ordering dietfor [id number] Reviewed daily medication list with pt, compared med list with Karey ordered appropriate medications that were missing from pt's MARThis note was completed by: Cece Vera RN [facility] OPERATIVE NOon 12-29-2017 OPERATIVE NO HNO ID: [id number] thor: Sergey Perduee: Orthopaedic SurgeryAuthor Type: PhysicianType: Operative ReportFiled: 12/29/2017 5:49 PMNote Text:[facility] [place] [address] [place]OPERATIVE REPORTNAME: Alisia Cox [facility] #: [id number]: 12/29/2017 (3:04pm-5:22pm) AGE: 57SURGEON 1: Sergey Perez M.D.CERTIFIED LOW VISION THERAPIST: 1. Candida Pat M.D. 2. Watson Garcia [...] 48 mm, +7 mm STEPTECH anchor pegglenoid ([employer] STEPTECH APG) was then impacted into [...] humeral implant was, therefore, a 12 stem, oyqwcibu028-pygajp neck, with a 52 x 18 mm [...] single rotator interval stitch wasthen passed in dsqnmu-bz-cxsms fashion with a #2 Ticron suture and tieddown to close the lateral rotator interval and set the osteotomy piecesuperiorly. The two #2 Fiberwire sutures coming out of the bicipitalgroove were then sequentially passed in a jununl-pg-hpmhx fashion medialto the horizontal mattress and sequential [...] the wound was sterilely dressed with Adaptic, 8t3vcfic, ABD dressing, and Foam tape. The shoulder [...] noneSPECIMENS: noneCOMPLICATIONS: none apparentEric Wicho Perez M.D. [facility] PT EDon 12-29-2017 PT ED HNO ID: [id number] thor: JAMIE Hobbs Rnervice: NursingAuthor Type: Registered NurseType: Patient EducationFiled: 12/29/2017 12:00 PMNote Text:PRE OP LEARNING ASSESSMENTPROCEDURE/SURGE RY: SURGERY:READINESS TO LEARNCOGNITIVE ABILITY: Alert and orientedMOTIVATION TO LEARN: EagerInterestedFAMILY SUPPORT: High - Very involved in pt carePATIENT LEARNS BEST BY: Multiple MethodsFACTORS AFFECTING LEARNING: NonePHYSICAL LIMITATIONS AFFECTING LEARNING: NoneElectronically Signed By: Crystal Martin RN In [facility]: [facility] / TO COME IN [facility] XR SHOULDER SPECIFY 1V LTon 12-29-2017 [...] LOYD MD on Dec 29 2017 5:49PM [id number] [facility] NURSING PROGon 12-08-2017 NURSING PROG HNO ID: [id number] thor: Amaya (Rn) Paula, RNService: (none)Author Type: [...] HPI: DM-oral medication; Current smoker; S/P gastric [id number] Considerations:N/AChart Check:TESSA Espinosaebrufrancine 2017 9:11 AM [facility] Type and SCR (30D)on 018 ABO/RH(D) Negative Normal [facility] Antibody Screen Negative Normal [facility] HOSPon 11-13-2017 HOSP Patient:Eddi Correa [...] mg ORAL tablettamsulosin (FLOMAX) 0.4 mg ORAL [id number] Sulfate 1.25 mg/3 mL INHALATION nebulizer solutionacarbose(PRECOSE [...] mellitus (HCC) [E11.9]Essential hypertension [I10]Hyperlipidemia [E78.5]Ulcerative lesion [ZWZ0916]Allergies:Avelox [Moxifloxacin Hcl]Celebrex [Celecoxib]Erythromycin BaseKlonopin [Clonazepam]Levaquin [Levofloxacin]Date Verified: 12/29/17Lab ValuesLab Value Units Date High LowPOTA* 4.6 mmol/L 12/07/2017 5.1 3.7HEMA* 43.5 % 12/07/2017 51.0 39.0No progress notes entered within the past 30 days Normal [facility] Basic Metabolic Panlon 07-02 Anion gap 11 mmol/L Normal 10-20 [facility] Comment on above: Performed By: #### C MP, IRON, CBCDIF ####[place] [phone]#### FERR, HBA1C ####[place] [phone] Calcium 8.0 mg/dL Low 8.5-10.5 [facility] Comment on above: Performed By: #### C MP, IRON, CBCDIF ####[place] [phone]#### FERR, HBA1C ####[place] [phone] Chloride 105 mmol/L Normal 98-110 [facility] Comment on above: Performed By: #### C MP, IRON, CBCDIF ####[address] #### FERR, HBA1C ####[place] [phone] CO2 23 mmol/L Normal 23-32 [facility] Comment on above: Performed By: #### C MP, IRON, CBCDIF ####[address] #### FERR, HBA1C ####[place] [address] [phone] Creatinine 1.00 mg/dL Normal 0.70-1.40 [facility] Comment on above: Performed By: #### C MP, IRON, CBCDIF ####[place] [phone]#### FERR, HBA1C ####[place] [address] [address] [address] eGFR (non-black) mL/min/{1.73_m2} Normal >60 [facility] Comment on above: Performed By: #### C MP, IRON, CBCDIF ####[place] 0881013216-363-2018#### FERR, HBA1C ####[place] [phone] Glucose mass conc 112 mg/dL High 65-100 [facility] Comment on above: Performed By: #### C MP, IRON, CBCDIF ####[place] [phone]#### FERR, HBA1C ####[place] [phone] Potassium molar conc 3.7 mmol/L Normal 3.5-5.0 [facility] Comment on above: Performed By: #### C MP, IRON, CBCDIF ####[place] [phone]#### FERR, HBA1C ####[address] [place] [address] Sodium 139 mmol/L Normal 135-146 [facility] Comment on above: Performed By: #### C MP, IRON, CBCDIF ####[place] 0881013216-363-2018#### FERR, HBA1C ####[place] [phone] Urea nitrogen 17 mg/dL Normal 10-25 [facility] Comment on above: Performed By: #### C MP, IRON, CBCDIF ####[facility] [phone]#### FERR, HBA1C ####[facility] [address] [place], [place] [phone] CASE MANAGEMon 07-02-2017 CASE MANAGEM HNO ID: [id number] thor: Kerri () HouseService: Care ManagementAuthor Type: Social WorkerType: Care Mgt Progress NoteFiled: 07/03/2017 9:32 AMNote Text:CARE MANAGEMENT DISCHARGE NOTESERVICE DATE: 07/03/2017SERVICE TIME: LOS: 1 dayAdmission Date: 07/01/2017DISCHARGE ARRANGEMENT (list agency and phone number)Home and Home careProvider: [facility] HANDOFF COMMUNICATION:summary of care sent to [facility] via [employer]. Informed [facility] pt d/c yesterday.TRANSPORTATION ARRANGEMENTS:Car via familyADDITIONAL CONTACT RESOURCES:Discharge Information Admission (Discharged) from 07/01/2017 in [facility] 5D Medical Follow-Up Appointment Specialty Ortho Karely Provider Name Swati Senior MD Address [address] [place] [address] Appointment Date 07/21/17 Appointment Time 9:00AM Additonal Instructions Patient should bring the following to appointment:Picture ID, Insurance Card, Copay (if applicable), Medications/Med List,and Hospital Discharge paperwork. Please provide a minimum of 24 hournotice for cancellations/reschedulin g.Needs Prior to Discharge: Ready for DischargeSIGNATURE: LIZETT Sweeney PATIENT NAME: Alisia Correa Sr.DATE: July 03, 2017 : 9:30 AM PAGER/CONTACT #: Normal [facility] CBCon 07-02-2017 Erythrocyte distribution width Auto Ratio (RBC) 13.6 % Normal 11.5-15.0 [facility] Comment on above: Performed By: #### C MP, IRON, CBCDIF ####[address] #### FERR, HBA1C ####[place] [address] [address] [place] [address] Erythrocytes (RBC) 3.73 10*6/uL Low 4.20-6.00 [facility] Comment on above: Performed By: #### C MP, IRON, CBCDIF ####[place] 0881013216-363-2018#### FERR, HBA1C ####[address] [address] Hematocrit (HCT) 34.4 % Low 39.0-51.0 [facility] Comment on above: Performed By: #### C MP, IRON, CBCDIF ####[place] [phone]#### FERR, HBA1C ####[place] [address] [address] [place] [phone] Hemoglobin mass conc (Bld) 10.9 g/dL Low 13.0-17.0 [facility] Comment on above: Performed By: #### C MP, IRON, CBCDIF ####[address] #### FERR, HBA1C ####[place] [phone] MCH 29.2 pG Normal 26.0-34.0 [facility] Comment on above: Performed By: #### C MP, IRON, CBCDIF ####[address] #### FERR, HBA1C ####[place] [address] [address] [address] MCHC mass conc (RBC) 31.7 g/dL Normal 30.5-36.0 [facility] Comment on above: Performed By: #### C MP, IRON, CBCDIF ####[place] [address]881013216-363-2018#### FERR, HBA1C ####[place] [address] [address] [phone] MCV 92.2 fL Normal 80.0-100.0 [facility] Comment on above: Performed By: #### C MP, IRON, CBCDIF ####[place] [phone]#### FERR, HBA1C ####[address] AvK[address] [phone] Platelet mean volume (PMV) 12.5 fL Normal 9.0-12.7 [facility] Comment on above: Performed By: #### C MP, IRON, CBCDIF ####[place] [phone]#### FERR, HBA1C ####[place] [phone] Platelets 146 10*3/uL Low 150-400 [facility] Comment on above: Performed By: #### C MP, IRON, CBCDIF ####[address] #### FERR, HBA1C ####[place] [phone] WBC (Leukocytes) 6.04 10*3/uL Normal 3.70-11.00 [facility] Comment on above: Performed By: #### C MP, IRON, CBCDIF ####[place] [phone]#### FERR, HBA1C ####[address] [place] [phone] CONSULT PROGon 07-02-2017 CONSULT PROG HNO ID: [id number] thor: Sonny Laguna (Pa)ervice: Pain ManagementAuthor Type: Physician AssistantType: Consult Progress NoteFiled: 07/02/2017 9:39 AMNote Text:INPATIENT ACUTE PAIN MGMT PROGRESS NOTESPatient Name: Alisia Correa Sr. DATE: July 02, 2017SERVICE TIME: 9:32 AMPRIMARY SERVICE: Ortho and SpineConsult by Dr. Knox for acute post op painINTERVAL HPI: Is the patient having any pain? Yes LOCATION: R kneePAIN SCALE: 5 on a scale of 0-10PAIN CHARACTER: achingFREQUENCY: (How often does the pain occur?) occurs [id number] WM cc R knee painPERTINENT ROS:denies fever, [...] HISTORYProcedure Laterality Date- COLONOSCOP W/ [facility] Colonoscopy- EGD W/O OR W/BRUSH/WASH [...] recent labsGlucose (mg/dL)Date Value07/02/2017 112 Potassium (mmol/L)Date 07/02/2017 3.7 Sodium (mmol/L)Date 07/02/2017 139 Chloride (mmol/L)Date 07/02/2017 105 CO2 (mmol/L)Date 07/02/2017 23 Creatinine (mg/dL)Date 07/02/2017 1.00 BUN (mg/dL)Date 07/02/2017 17 Anion Gap (mmol/L)Date 07/02/2017 11 Calcium (mg/dL)Date 07/02/2017 8.0 WBC (k/uL)Date 07/02/2017 6.04RBC (m/uL)Date 07/02/2017 3.73 (L)Hemoglobin (g/dL)Date 07/02/2017 10.9 (L)Hematocrit (%)Date 07/02/2017 34.4 (L)MCV (fL)Date 07/02/2017 92.2MCH (pG)Date 07/02/2017 29.2MCHC (g/dL)Date 07/02/2017 31.7RDW-CV (%)Date 07/02/2017 13.6Platelet Count (k/uL)Date 07/02/2017 146 (L)MPV (fL)Date 07/02/2017 12.5ASSESSMENT AND PLAN:56 year old WM s/p TKA R rsf3Nudzpqc of tramadol 200mg/day and neurontin 600mg ii tab po tidImpressionStatus post right knee replacementAcute right knee painPlanContinue tylenol, cymbalta, topamax,Continue zanaflex prn, and oxyir prncontinue neurontin to 1200mg tid, home medicationcontinue iv toradol 30mg q 6hrsIf lack of pain control, recommend MScontin 15mg tidDiscuss with Dr. GrewalATURE: JODY LynnATE: July 02, 2017TIME: 9:32 AM Normal [facility] Glucose POCT (East, [place], [place] A Use Only)on 07-02-2017 Glucose mass conc 97 mg/dL Normal 65-100 [facility] Comment on above: Performed By: #### C MP, IRON, CBCDIF ####[place] [phone]#### FERR, HBA1C ####[place] [phone] Glucose mass conc 125 mg/dL High 65-100 [facility] Comment on above: Performed By: #### C MP, IRON, CBCDIF ####[place] [phone]#### FERR, HBA1C ####[place] [address] NURSING PROGon 07-02-2017 NURSING PROG HNO ID: [id number] thor: [place] ([facility]) Paul, RNService: (none)Author Type: Advance Clinical NurseType: Nursing Progress NoteFiled: 07/02/2017 1:37 PMNote Text: Nursing Progress NotePatient Name: Alisia Correa Sr. Location: [address]/[id number]-_ Daily Note:Patient attended discharge instruction class for total joints , wheredischarge instructions were reviewed.Education/Teachi ng points reviewed:Wound care for Silverlon/Mepilex AG - any drainage upon removal notifysurgeonShoweringNut ritionUse of ice, no heatNo pillow under the kneeWearing protocol for jacqueline hose/toina wrapsSwelling (abnormal vs. Normal)Exercises (flexion vs extension),Level [...] note was completed by: Geneva Miller RN [facility] NURSING PROG HNO ID: [id number] thor: Sobeida Hinkle (Rn) Juan Daniel, RNService: (none)Author Type: Registered NurseType: Nursing Progress NoteFiled: 07/02/2017 3:02 PMNote Text: Nursing Progress NotePatient Name: Alisia Correa . Location: [address]/[id number]-_ Daily Note:1204: Patient is medically cleared to go home per Dr. Hernandez.1501: Patient is cleared from PT and OT to go home.This note was completed by: Sobeida Frances RN [facility] NURSING PROG HNO ID: [id number] thor: Crystal (Rn) Doug, RNService: (none)Author Type: [...] Rounds:Patient: Alisia Correa Sr.Care Management: Nate Herron Leather Cartridge Belt Maker: Anna Camacho RNOrtho Air Twister Winder: SERINA Jefferyharmacist: Nicky Sanches Discussed on Rounds:Plan of CareAnticipated [...] Concerns;Explain Scheduling and Routine of Care, Test andProcedures;[place] Patient/Family to Hospital/Unit EnvironmentKnowledge Deficit Goals/Outcomes: Participate [...] July 02, 2017 : 8:49 AM CSN: [id number] Nursing Progress NotePatient Name: Alisia Correa Sr. [facility]516D/VL-[id number]-02_ Daily Note: Dr. Rivera placed on consult [...] note was completed by: Crystal Camacho RN [facility] PROGRESSon 07-02-2017 PROGRESS HNO ID: [id number] thor: Ines Sextonervice: General Internal MedicineAuthor Type: [...] hrs: BP Temp Temp src Pulse Resp FeC98007/02/17 1455 129/79 37.3 ?C (99.1 ?F) Oral [...] Hernandez, MDDATE: July 02, 2017TIME: 6:45 PM [facility] PROGRESS HNO ID: [id number] thor: DANIEL Macielervice: Orthopaedic SurgeryAuthor Type: ResidentType: Progress NotesFiled: 07/02/2017 8:40 AMNote Text:ORTHOPAEDIC POSTOP PROGRESS NOTESUBJECTIVEPatient states that they are comfortableWell Controlled knee(s) pain.Denies incisional pain.OBJECTIVEVITAL SIGNS: BP 112/63 Pulse 80 Temp 37.2 ?C (98.9 ?F) (TemporalArtery) Resp 18 Ht 180.3 cm (5' 11 ) Wt 113.4 kg (250 lb) SpO2 95% BMI 34.87 kg/o0NAUHTI AND OUTPUT:Intake/Output Summary (Last 24 hours) at [...] Without Complication, Without Long-Term CurrentUse of Insulin ([facility])Chronic Pain SyndromeCopd With Chronic Bronchitis (Hcc)Arthritis of KneePrimary Osteoarthritis of Right KneeOa (Osteoarthritis) of KneePOST OPERATIVE COMPLICATIONS:Complicated by: uneventful/noneFor Documentation:This procedure is considered Major Orthopedic Surgery and is exempt fromthe new law regarding narcotic prescription quantity limitations.SIGNATURE: Rafy Ugarte MD PATIENT NAME: Alisia Correa Sr.DATE: July 02, 2017 : 8:40 AM PAGER/CONTACT #: [phone] discuss medical issues with medical co-management physicianOrthopedic issue please page me first, [id number] 6pm and on weekends please contact [facility] On-Call [id number] [facility] THERAPY NTon 07-02-2017 THERAPY NT HNO ID: [id number] thor: Nellie (Pt) JesúsyService: Physical TherapyAuthor Type: Physical TherapistType: Therapy (PT/OT/Speech/Resp)Filed: 07/02/2017 3:04 PMNote Text:PHYSICAL THERAPY MISSED VISITSERVICE DATE: 07/02/2017SERVICE TIME: 1330 to 1335ROOM: [id number] Treatment. Patient not seen due to Declined. Preparing to go toOT for car transfer. Denied questions/concerns from PT standpoint. Clearedafter morning session for D/C home today.SIGNATURE: Nellie David PT PATIENT NAME: Alisia Correa Sr.DATE: July 02, 2017 : 3:01 PM PAGER/CONTACT #: [phone] [facility] THERAPY NT HNO ID: [id number] thor: Rebecca (Ot) Emelina OTService: Occupational TherapyAuthor Type: Occupational TherapistType: Therapy (PT/OT/Speech/Resp)Filed: 07/02/2017 2:43 PMNote Text:Occupational Therapy TreatmentSERVICE DATE: 07/02/2017SERVICE TIME: 1413 to 1437ROOM: [id number] Discharge Disposition: Home OTRecommended Discharge Disposition Comments: [...] Weakness (generalized);Difficultyw alking-musculoskeletalInt erventions Provided: Therapeutic Activity (42014)Therapeutic Activity (14435) Treatment Minutes: 242 unitsSkilled Intervention(s): Instruction in [...] 1413)Self Care Current Status (G8987): CI (07/02/17 1413)Self Care Goal Status (G8988): CH (07/02/17 141)Based [...] details for this therapy evaluation/treatment.SIGN ATURE: INDU Licona/Kenny PATIENT NAME: Alisia Correa Sr.DATE: July 02, 2017 : 2:40 PM PAGER: [phone] [facility] THERAPY NT HNO ID: [id number] thor: Watson JerryOt/Kenny) RAMSES Connellyervice: Occupational TherapyAuthor Type: Occupational TherapistType: Therapy (PT/OT/Speech/Resp)Filed: 07/02/2017 11:48 AMNote Text:Occupational Therapy EvaluationSERVICE DATE: 07/02/2017SERVICE TIME: 1036 to 1118ROOM: [id number] Discharge Disposition: Home OTRecommended Discharge Disposition Comments: [...] Weakness (generalized);Difficultyw alking-musculoskeletalInt erventions Provided: Evaluation;Therapeutic Activity (51943);Self CareHome Management (11947)$ Evaluation-Low (41069) Billed Units: 1 unitTherapeutic Activity (33291) Treatment Minutes: 101 unitSkilled Intervention(s): Instructed patient [...] transfers using wheeled walker between bedand chair.Self [facility] Management (07919) Treatment Minutes: 171 unitSkilled Intervention(s): Instructed in [...] July 02, 2017 : 11:33 AM PAGER: [phone] [facility] THERAPY NT HNO ID: [id number] thor: Nellie (Pt) JesúsyService: Physical TherapyAuthor Type: Physical TherapistType: Therapy (PT/OT/Speech/Resp)Filed: 07/02/2017 11:05 AMNote Text:Physical Therapy TreatmentSERVICE DATE: 07/02/2017SERVICE TIME: 917 to OOM: [id number] Discharge Disposition: Home PTAnticipated Discharge Needs: Physical [...] Diagnosis: Reduced mobility-otherInterventio ns Provided: Therapeutic Exercise (72944);Therapeutic Activity(48415);Gait Training (51442)Therapeutic Exercise (88110) Treatment Minutes: 201 unitSkilled Intervention(s): Instruction in therapeutic exercise seated andsupine TKR exercisesVerbal and tactile cuing provided .Education in HEp and TKR bookletTherapeutic Activity (36883) Treatment Minutes: 101 unitSkilled Intervention(s): Instructed patient in sit to supine using safe,effective techniqueEducation with POC, precautions, home management and set up, nonpharm paincontrol techniques, nonpharm pain control techniques, conservation ofenergy techniquesGait Training (50090) Treatment Minutes: 242 unitsSkilled Intervention(s): Instruction in [...] Assistance (with use of sheet as leg modern and contemporary art curator after 2trials)Scooting Modified IndependentSit to Stand Stand [...] 02, 2017 : 10:58 AM PAGER/CONTACT #: [phone] [facility] ANES Brian 07-01-2017 ANES POST HNO ID: [id number] thor: Lora Knox IIService: AnesthesiologyAuthor Type: AnesthesiologistType: Anesthesia PostOpFiled: 07/01/2017 11:34 AMNote Text:POST ANESTHESIA EVALUATION NOTESERVICE DATE: 07/01/2017SERVICE TIME: 1134DOB: 1960Vitals: 07/01/1709Temp: (!) 35.9 ?C (96.6 ?F) 37 ?C (98.6 ?F) 36.8 ?C (98.2 ?F) 07/01/1710BP: 123/67 138/76 116/79 120/67 07/01/1710Pulse: 73 74 79 80 07/01/1710Resp: 16 16 16 16 0407/01/1711SpO2: 92% 97% 99% 98%Validated Vital Signs: YesPOST ANES STATUS: No apparent anesthetic complications. The patient isappropriately hydrated with stable respiratory and cardiovascular status.Patient has safe and adequate airway control. The patient has appropriatepain relief and no significant post operative nausea or vomiting. Thepatient has achieved baseline mental status.Further assessment by Anesthesia Service: NoneOther Remarks:SIGNATURE: Lora Knox II, DO PATIENT NAME: Alisia Correa Sr.DATE: July 01, 2017 : 11:34 AM PAGER/CONTACT #: [phone] [facility] ANES PREOPon 07-01-2017 ANES PREOP HNO ID: [id number] thor: Lora Knox IIService: AnesthesiologyAuthor Type: AnesthesiologistType: Anesthesia PreOpFiled: 07/01/2017 7:13 AMNote Text: ANESTHESIOLOGY DAY OF SURGERY NOTESERVICE DATE: 07/01/2017SERVICE TIME: 710DOB: 1960Procedure(s) (LRB):ARTHROPLASTY REPLACE JOINT TOTAL KNEE (Right)Surgeon(s):Swati SeniorEstimated body mass index is 34.87 kg/(m2) as calculated from thefollowing: Height as of 06/17/17: 180.3 cm (5' 11 ). Weight as of 06/17/17: 113.4 kg (250 lb).Most recent hematocrit and potassium results:Hematocrit 40.0 06/17/2017Potassium 4.4 06/17/2017ANES DOS/PREOP NOTE:Vitals: 690931ZJ: 115/74Pulse: 67Resp: 16Temp: (!) 35.9 ?C (96.6 [...] HISTORYProcedure Laterality Date- COLONOSCOP W/ OR W/O [facility] SPEC Colonoscopy- EGD W/O OR W/BRUSH/WASH [...] (CeleBREX) 200 mg ORAL Pre-Op Once Burak Pablo)Rotunolidocaine (PF) 10 mg/mL (1 %) 1-2 mg injection (XYLOCAINE) 0.1-0.2 mLINTRADERMAL PRN Burak Pablo) Rotunolactated ringers infusion 5-30 mL/hr INTRAVENOUS CONTINUOUS Burak Pablo)RotunoceFAZolin 2 g in dextrose (iso-osmotic) 100 mL (ANCEF, KEFZOL) 2 gINTRAVENOUS ONCE Burak (Pa) Rotunotranexamic acid 1,000 mg in NaCl 0.9% 100 mL (CYKLOKAPRON) 1,000 mgINTRAVENOUS ONCE Burak (Pa) Rotunotranexamic acid 1,000 mg in NaCl 0.9% 100 mL (CYKLOKAPRON) 1,000 mgINTRAVENOUS ONCE Burak (Pa) RotunoAllergies:ALLERGIES Allergen Reactions- Avelox [Moxifloxaci* Rash, Hives, [...] information obtained within 48 hours ofSurgery/Procedure.IMANI COELHO: Lora Knox II, DO PATIENT NAME: Alisia Correa .DATE: July 01, 2017 : 7:11 AM CSN: [id number] [facility] BRIEF OP NOTon 07-01-2017 BRIEF OP NOT HNO ID: [id number] thor: Tyron Lebronice: Orthopaedic SurgeryAuthor Type: PhysicianType: Brief Op NoteFiled: 07/01/2017 9:44 AMNote Text:TOTAL KNEE ARTHROPLASTYBRIEF OPERATIVE / PROCEDURE NOTELOG ID: [id number]/Procedure Date: 07/01/2017Incision/Procedu re Start Time: 8:12 AMIncision Close/Procedure End Time:Surgeon(s)/Procedura list(s) and Doctor Of Radiology(s):Surgeon(s) and Role: * Swati Senior - Primary * Tyron Rose - FellowSurgical Doctor Of Radiology: Kd Navarro (Shravan) FineganProcedure(s):Anastasiya campos(s) (LRB):ARTHROPLASTY REPLACE JOINT TOTAL KNEE (Right)Anesthesia: GeneralPeripheral Block Type: None pre-opApproach: Median parapatellarFindings: see operative reportEstimated Blood Loss: 150 mlsSpecimens: NoneComplications: NoneImplant:Implant Name Type Inv. Item Serial No. Bird Raiser Lot No. LRB No. UsedPIN TRIATHLON 3IN FIXATION HEADLESS FLUTED KNEE - [id number] Pin PINTRIATHLON 3IN FIXATION HEADLESS FLUTED KNEE STRY/[employer] [id number] TRIATHLON 7 PA FEMORAL CRUCIATE RETAIN BEAD KNEE RIGHT -[id number] Joint - Knee COMPONENT TRIATHLON 7 PA FEMORAL CRUCIATE RETAINBEAD KNEE RIGHT STRY/[employer] [id number] Right 1INSERT TRIATHLON 6 X3 13MM TIBIAL CONDYLAR STABILIZED KNEE - [id number] - Knee INSERT TRIATHLON 6 X3 13MM TIBIAL CONDYLAR STABILIZED KNEESTRY/[employer] [id number] Right 1BASEPLATE TRIATHLON 6 TRITANIUM [id number] TIBIAL 4 CRUCIFORM PEG KEEL KNEE -[id number] Joint - Knee BASEPLATE TRIATHLON 6 TRITANIUM [id number] TIBIAL 4CRUCIFORM PEG KEEL KNEE STRY/[employer] [id number] Right 1COMPONENT TRITANIUM 35MM METAL 10MM PATELLAR ASYMMETRIC KNEE - [id number] - Knee COMPONENT TRITANIUM 35MM METAL 10MM PATELLAR ASYMMETRIC KNEE STRY/[employer] D4Y3 Right 1Bearing Surface: FixedFixation: CementlessSSI Risk Factors: DMConstraint: Cruciate RetainingOther: NonePre-Op/Pre-Procedure Diagnosis: Primary osteoarthritis of right knee[M17.11]Post-Op/Post- Procedure Diagnosis: Primary osteoarthritis of right knee[M17.11]Weight Bearing Status: Weight Bearing As ToleratedSIGNATURE: Tyron Rose MD PATIENT NAME: Alisia Correa Sr.DATE: July 01, 2017 : 9:43 AM PAGER/CONTACT #: [phone] [facility] CASE MGT INIT ASSESon 2016 CASE MGT INIT ASS HNO ID: [id number] thor: Kerri Jerry) HouseService: Care ManagementAuthor Type: Social WorkerType: Care Mgt Initial AssessmentFiled: 07/01/2017 1:46 PMNote Text:CARE MANAGEMENT: ASSESSMENT AND DISCHARGE PLANSERVICE DATE: 07/01/2017SERVICE TIME: 12:00pmPRIMARY CARE PHYSICIAN:Ellen Crabtree, CHARIhone: [phone] STATUS: InpatientPOTENTIAL DISCHARGE PLANSHomeHome CareHome OT/PTPatient/Representati ve Stated Goals: return home.Needs Prior to Discharge: To Be Determined;Discharge Prescriptions;OT/PTEvalua tion;Discharge Transportation;Pharmacy Bedside DeliveryHealth Insurance: Medical Bennett ServicesLiving Arrangement: HomeLives With: SpouseFinancial Resources: RetiredPrimary Contact:Extended Emergency Contact InformationPrimary Emergency Contact: Armen Correaddress: [address] [place] [phone] Motsyzjb: SpouseSupportive: Yes- at bedsideOther Important Patient Contacts: [...] Have Advance Directives? Yes: Durable Power of Candle Making Supervisor forHealth Care: Dipti Correa , copy is not in chartDoes Patient Have Concerns About Advance Directives? NoPRIOR TO ADMISSION:Baseline Mental Status: Alert AND Oriented, Person, Place , Time andSituationFunctional Status: IndependentDoes Patient Currently Receive Any Community Services or Home Care? NoneEquipment Prior to Admission: Cane - StraightElevated toilet seatTub bench/chairWalkerHEALTH:H ealt Issues Impacting Discharge Plan: s/p right total [...] the Provider List: YesProvider List: Home CarePre[facility] had [facility] in April.HANDOFF COMMUNICATION:referral sent to [facility]. anticipate d/c home tomorrow.SIGNATURE: LIZETT Sweeney PATIENT NAME: Alisia Correa Sr.DATE: July 01, 2017 : 1:41 PM PAGER/CONTACT #: [facility] CONSULTon 07-01-2017 CONSULT HNO ID: [id number] thor: Ines TurnerniService: General Internal MedicineAuthor Type: [...] HISTORYProcedure Laterality Date- COLONOSCOP W/ OR W/O [facility] SPEC Colonoscopy- EGD W/O OR W/BRUSH/WASH [...] 18, height 180.3 cm (5' 11 ), qreesr682.4 kg (250 lb), SpO2 98 %.General appearance: [...] Hernandez, MDDATE: July 01, 2017TIME: 9:01 PM [facility] CONSULT HNO ID: [id number] thor: Sonny Pablo) NovakService: Pain ManagementAuthor Type: Physician AssistantType: ConsultsFiled: 07/01/2017 2:43 PMNote Text:INPATIENT ACUTE PAIN MGMT PROGRESS NOTESPatient Name: Alisia Correa Sr. DATE: July 01, 2017SERVICE TIME: 2:35 PMPRIMARY SERVICE: Ortho and SpineConsult by Dr. Knox for acute post op painINTERVAL HPI: Is the patient having any pain? Yes LOCATION: R kneePAIN SCALE: 4 on a scale of 0-10PAIN CHARACTER: achingFREQUENCY: (How often does the pain occur?) occurs [id number] WM cc R knee painPERTINENT ROS:denies fever, [...] HISTORYProcedure Laterality Date- COLONOSCOP W/ OR W/O [facility] SPEC Colonoscopy- EGD W/O OR W/BRUSH/WASH [...] 06/17/2017 4.35Hemoglobin (g/dL)Date 06/17/2017 12.8 (L)Hematocrit (%)Date 06/17/2017 40.0MCV (fL)Date 06/17/2017 92.0MCH (pG)Date 06/17/2017 29.4MCHC (g/dL)Date Value06/17/2017 32.0RDW-CV (%)Date 06/17/2017 14.3Platelet Count (k/uL)Date Value06/17/2017 [...] SHRAVAN Lynn-CDATE: July 01, 2017TIME: 2:35 PM [facility] Glucose POCT ([facility] [place], [place] A Use Only)on 07-01-2017 Glucose mass conc 117 mg/dL High [address] [place] [address] Comment on above: Performed By: #### C MP, IRON, CBCDIF ####[place] [id number]#### FERR, HBA1C ####[place] [address] Glucose mass conc 115 mg/dL High [address] [place] [address] Comment on above: Performed By: #### C MP, IRON, CBCDIF ####[place] [phone]#### FERR, HBA1C ####[place] [address] Glucose mass conc 128 mg/dL High [address] [place] [address] Comment on above: Performed By: #### C MP, IRON, CBCDIF ####[place] [phone]#### FERR, HBA1C ####[place] [address] Glucose mass conc 103 mg/dL High [address] [place] [address] Comment on above: Performed By: #### C MP, IRON, CBCDIF ####[place] [phone]#### FERR, HBA1C ####[place] [address] NURSING PROGon 07-01-2017 NURSING PROG HNO ID: [id number] thor: Chato Osborn (Rn) Jeanna RNService: NursingAuthor Type: Registered NurseType: Nursing Progress NoteFiled: 07/01/2017 12:08 PMNote Text: Nursing Progress NotePatient Name: Alisia Correa Sr. Location: [address]_ Daily Note:PT admitted from PACU in bed [...] note was completed by: Chato Meeks RN [facility] NURSING PROG HNO ID: [id number] thor: Bambi JerryRn) Debbie Moellerice: (none)Author Type: Registered NurseType: Nursing Progress NoteFiled: 07/01/2017 9:56 AMNote Text:Discharge Status:Patient is Awakening, and is no airway issues. Skin condition was WNL andwarm.Transported to recovery room via bed with siderails up. Accompanied byanesthetist and PA-C/. [facility] NURSING PROG HNO ID: [id number] thor: Kaylee (Rn) Debbie Yuice: (none)Author Type: Registered NurseType: Nursing Progress NoteFiled: 07/01/2017 11:13 AMNote Text: Nursing Progress NotePatient Name: Alisia Correa Sr. Location: [facility]-VBNX-71 Daily Note:pt to pacu; sleepy. drsg to right knee dry and intact. Has iceapplied to right knee. Has movement/sensation to right foot. scds on.Safety maintained.1006 C/o 10 out of 10 pain; medicated.1009 Right single shot saphenous nerve block being done by DR. Knox.1030 States pain is better. Safety maintained.1045 Pt [...] note was completed by: Kaylee Yu RN [facility] NURSING PROG HNO ID: [id number] thor: Bambi (Rn) Debbie Moellerice: (none)Author Type: Registered NurseType: Nursing Progress NoteFiled: 07/01/2017 8:21 AMNote Text:Patient transported to the OR via cart, accompanied by Sabrina Shi.Level of consciousness: Alert and Oriented x 3Emotional Status:CalmSensory Impairments: NoLanguage Barrier: NoMobility Impairments: NoAddressed any patient concerns regarding consents, OR environment, andanesthetics.Body temperature maintained by maintaining OR room temperature zdonbke23-16 degrees F, providing patient with warm bath blankets, limiting areasof exposure and providing warm irrigation fluid. [facility] NURSING PROG HNO ID: [id number] thor: Neetu JerryRn) Debbie Munsonice: (none)Author Type: Registered NurseType: Nursing Progress NoteFiled: 07/01/2017 7:27 AMNote Text: Nursing Progress NotePatient Name: Alisia Correa . [facility] Daily Note:AANDO.Lungs clear. Rt leg pink, warm, brisk refill. Strongdorsiflexion, pos sensation. Rt DP and PT pulses palp. Pain all over fromarthritis 04/27. Numbness/tingling to both feet.This note was completed by: Neetu Munson RN [facility] OPERATIVE NOon 07-01-2017 OPERATIVE NO HNO ID: [id number] thor: Swati Hansonervice: Orthopaedic SurgeryAuthor Type: PhysicianType: Operative ReportFiled: 07/01/2017 12:16 PMNote Text:OPERATIVE NOTEPATIENT NAME: Alisia Correa Sr. ID: [id number] Date: 07/01/2017Surgeon(s) and Doctor Of Radiology(s):Surgeon(s) and Role: * Swati Senior - Primary [...] ccImplants:Implant Name Type Inv. Item Serial No. Bird Raiser Lot No. LRB No. UsedPIN TRIATHLON 3IN FIXATION HEADLESS FLUTED KNEE - [id number] Pin PINTRIATHLON 3IN FIXATION HEADLESS FLUTED KNEE STRY/[employer] [id number] TRIATHLON 7 PA FEMORAL CRUCIATE RETAIN BEAD KNEE RIGHT -[id number] Joint - Knee COMPONENT TRIATHLON 7 PA FEMORAL CRUCIATE RETAINBEAD KNEE RIGHT STRY/[employer] [id number] Right 1INSERT TRIATHLON 6 X3 13MM TIBIAL CONDYLAR STABILIZED KNEE - [id number] - Knee INSERT TRIATHLON 6 X3 13MM TIBIAL CONDYLAR STABILIZED KNEESTRY/[employer] [id number] Right 1BASEPLATE TRIATHLON 6 TRITANIUM [id number] TIBIAL 4 CRUCIFORM PEG KEEL KNEE -[id number] Joint - Knee BASEPLATE TRIATHLON 6 TRITANIUM [id number] TIBIAL 4CRUCIFORM PEG KEEL KNEE STRY/[employer] [id number] Right 1COMPONENT TRITANIUM 35MM METAL 10MM PATELLAR ASYMMETRIC KNEE - [id number] - Knee COMPONENT TRITANIUM 35MM METAL 10MM [...] verified this against the epicondylar axis and [place]'sline.The femur was sized and drill holes were [...] resected leaving a healthy remnant with greater hesb39iq thickness. The patella was sized with the [...] Senior, MDDATE: July 01, 2017TIME: 12:16 PM [facility] PT EDon 07-01-2017 PT ED HNO ID: [id number] thor: Chely (Rn) JAMIE Lunaervice: (none)Author Type: Registered NurseType: Patient EducationFiled: 07/01/2017 7:12 AMNote Text:PATIENT EDUCATION TOPIC: PROCEDURE / SURGERY: Pre-op Teaching: Post opcarePATIENT NAME: Alisia Correa LOCATION: [place] [address]READI NESS TO LEARNCOGNITIVE ABILITY: Alert and orientedMOTIVATION [...] TO PATIENT: NoneREFERRAL (RECOMMENDATION): NoneElectronically Signed By: Chley Luna RN [facility] PT ED HNO ID: [id number] thor: María (Rn) JAMIE Grubbservice: NursingAuthor Type: Registered NurseType: Patient EducationFiled: 07/01/2017 6:15 AMNote Text:PATIENT EDUCATION TOPIC: PROCEDURE / SURGERY: Pre-op Teaching:Logistics ProtocolsComplication PreventionSurgical Safety PrinciplesPATIENT NAME: Alisia Correa . LOCATION: [address] TO LEARNCOGNITIVE ABILITY: Alert and orientedMOTIVATION TO [...] (RECOMMENDATION): NoneElectronically Signed By: María Grubbs RN [facility] THERAPY NTon 07-01-2017 THERAPY NT HNO ID: [id number] thor: Nellie (Pt) JesúsyService: Physical TherapyAuthor Type: Physical TherapistType: Therapy (PT/OT/Speech/Resp)Filed: 07/01/2017 4:47 PMNote Text:Physical Therapy EvaluationSERVICE DATE: 07/01/2017SERVICE TIME: 1545 to 1630ROOM: [id number] Discharge Disposition: Home PTAnticipated Discharge Needs: Physical [...] Diagnosis: Reduced mobility-otherInterventio ns Provided: Evaluation;Gait Training (20129);TherapeuticActivi ty (71271)$ Evaluation-Low (53900) Billed Units: 1 unitTherapeutic Activity (42542) Treatment Minutes: 121 unitSkilled Intervention(s): Instructed patient in supine to sit pushing withupper extremities to sit upEducation with POC, precautions, TKR booklet, nonpharm pain controltechniques, toileting, assisted to jose underwear, home management and setupGait Training (35555) Treatment Minutes: 131 unitSkilled Intervention(s): Instruction in [...] Walking and Moving Around Goal Status (G8979): (545)Based on clinical assessment and the score on [...] 01, 2017 : 4:41 PM PAGER/CONTACT #: [phone] [facility] NURSING PROGon 06-19-2017 NURSING PROG HNO ID: [id number] thor: Renae Cox (Rn) Burak, RNService: (none)Author Type: Registered NurseType: Nursing Progress NoteFiled: 06/19/2017 10:02 AMNote Text:PACC visit 06/17/17. H/O SDM,BMI35,YOLA,COPD/asthma . 06/17/17 nasalcANDs(-),ts,ferritin a1c, cbc/d,bmp,iron studies. 04/15/17 ekg. 05/20/17 kneexr. Chart check complete. Penelope HAMILTON [facility] CBC and Differentialon 06-17 Abs Baso 0.03 k/uL Normal 0.00-0.10 [facility] Comment on above: Performed By: #### C MP, IRON, CBCDIF ####[address] [phone]#### FERR, HBA1C ####[facility] W[address]janbn[address] [place] [phone] Abs [place] 0.35 k/uL Normal 0.00-0.86 [facility] Comment on above: Performed By: #### C MP, IRON, CBCDIF ####[address] [phone]#### FERR, HBA1C ####[facility] [address] [place] [phone] Abs Neut 2.15 k/uL Normal 1.45-7.50 [facility] Comment on above: Performed By: #### C MP, IRON, CBCDIF ####[place] [phone]#### FERR, HBA1C ####[place] [address] [address] AveCGail Ville [phone] Basophils/100 WBC Auto (Bld) 0.8 % Normal [facility] Comment on above: Performed By: #### C MP, IRON, CBCDIF ####[place] [phone]#### FERR, HBA1C ####[place] [address] [address] AveCGregory [address]ille [phone] Eosinophils 0.19 10*3/uL Normal 0.00-0.45 [facility] Comment on above: Performed By: #### C MP, IRON, CBCDIF ####[place] [phone]#### FERR, HBA1C ####[place] [address] [address] AveCGregory Ville [phone] Eosinophils/100 leukocytes 4.9 % Normal [facility] Comment on above: Performed By: #### C MP, IRON, CBCDIF ####[place] [phone]#### FERR, HBA1C ####[place] [address] [address] AveCGregory [place]ille [phone] Erythrocyte distribution width Auto Ratio (RBC) 14.3 % Normal 11.5-15.0 [facility] Comment on above: Performed By: #### C MP, IRON, CBCDIF ####[address] #### FERR, HBA1C ####[place] [address] [address] AveCGail [address] [phone] Erythrocytes (RBC) 0.0 /100 WBC Normal 0 [facility] Comment on above: Performed By: #### C MP, IRON, CBCDIF ####[place] [phone]#### FERR, HBA1C ####[place] [address] [address] AvKim[address] [place] [phone] Erythrocytes (RBC) 4.35 10*6/uL Normal 4.20-6.00 [facility] Comment on above: Performed By: #### C MP, IRON, CBCDIF ####[place] [phone]#### FERR, HBA1C ####[address] [place] [id number] Hematocrit (HCT) 40.0 % Normal 39.0-51.0 [facility] Comment on above: Performed By: #### C MP, IRON, CBCDIF ####[place] [id number]#### FERR, HBA1C ####[place] [phone] Hemoglobin mass conc (Bld) 12.8 g/dL Low 13.0-17.0 [facility] Comment on above: Performed By: #### C MP, IRON, CBCDIF ####[address] #### FERR, HBA1C ####[place] [address] [address] [place] [phone] Lymphocytes 1.14 10*3/uL Normal 1.00-4.00 [facility] Comment on above: Performed By: #### C MP, IRON, CBCDIF ####[address] #### FERR, HBA1C ####[place] [address] [address] [place] [phone] Lymphocytes/100 leukocytes 29.5 % Normal [facility] Comment on above: Performed By: #### C MP, IRON, CBCDIF ####[place] [id number]#### FERR, HBA1C ####[place] [address] [address] [place] [phone] MCH 29.4 pG Normal 26.0-34.0 [facility] Comment on above: Performed By: #### C MP, IRON, CBCDIF ####[place] [id number]#### FERR, HBA1C ####[place] [phone] MCHC mass conc (RBC) 32.0 g/dL Normal 30.5-36.0 [facility] Comment on above: Performed By: #### C MP, IRON, CBCDIF ####[place] [id number]#### FERR, HBA1C ####[place] [phone] MCV 92.0 fL Normal 80.0-100.0 [facility] Comment on above: Performed By: #### C MP, IRON, CBCDIF ####[address] #### FERR, HBA1C ####[place] [phone] Monocytes/100 leukocytes 9.1 % Normal [facility] Comment on above: Performed By: #### C MP, IRON, CBCDIF ####[place] [id number]#### FERR, HBA1C ####[place] [address] [address] [place] [phone] Neutrophils/100 WBC Auto (Bld) 55.7 % Normal [facility] Comment on above: Performed By: #### C MP, IRON, CBCDIF ####[place] [id number]#### FERR, HBA1C ####[place] [phone] Platelet mean volume (PMV) 12.3 fL Normal 9.0-12.7 [facility] Comment on above: Performed By: #### C MP, IRON, CBCDIF ####[place] [id number]#### FERR, HBA1C ####[place] [phone] Platelets 176 10*3/uL Normal 150-400 [facility] Comment on above: Performed By: #### C MP, IRON, CBCDIF ####[place] [id number]#### FERR, HBA1C ####[place] [phone] WBC (Leukocytes) 3.86 10*3/uL Normal 3.70-11.00 [facility] Comment on above: Performed By: #### C MP, IRON, CBCDIF ####[place] [id number]#### FERR, HBA1C ####[place] [phone] Comp Metabolic Panelon 06-17 Alanine aminotransferase (ALT) 14 U/L Normal 5-50 [facility] Comment on above: Performed By: #### C MP, IRON, CBCDIF ####[place] [id number]#### FERR, HBA1C ####[place] [phone] Albumin 4.1 g/dL Normal 3.5-5.0 [facility] Comment on above: Performed By: #### C MP, IRON, CBCDIF ####[address] #### FERR, HBA1C ####[place] [phone] Alkaline phosphatase (ALP) 95 U/L Normal 40-150 [facility] Comment on above: Performed By: #### C MP, IRON, CBCDIF ####[place] [id number]#### FERR, HBA1C ####[place] [phone] Anion gap 11 mmol/L Normal 10-20 [facility] Comment on above: Performed By: #### C MP, IRON, CBCDIF ####[place] [id number]#### FERR, HBA1C ####[place] [address] Aspartate aminotransferase (AST) 18 U/L Normal 7-40 [facility] Comment on above: Performed By: #### C MP, IRON, CBCDIF ####[address] #### FERR, HBA1C ####[place] [phone] Bilirubin (total) 0.2 mg/dL Normal 0.0-1.5 [facility] Comment on above: Performed By: #### C MP, IRON, CBCDIF ####[address] #### FERR, HBA1C ####[place] [id number] Calcium 9.2 mg/dL Normal 8.5-10.5 [facility] Comment on above: Performed By: #### C MP, IRON, CBCDIF ####[place] [id number]#### FERR, HBA1C ####[place] [address] [address] [place] [address] Chloride 104 mmol/L Normal 98-110 [facility] Comment on above: Performed By: #### C MP, IRON, CBCDIF ####[place] [id number]#### FERR, HBA1C ####[place] [address] CO2 25 mmol/L Normal 23-32 [facility] Comment on above: Performed By: #### C MP, IRON, CBCDIF ####[place] [id number]#### FERR, HBA1C ####[place] [address] Creatinine 1.07 mg/dL Normal 0.70-1.40 [facility] Comment on above: Performed By: #### C MP, IRON, CBCDIF ####[place] [id number]#### FERR, HBA1C ####[place] [address] eGFR (non-black) mL/min/{1.73_m2} Normal >60 [facility] Comment on above: Performed By: #### C MP, IRON, CBCDIF ####[address] #### FERR, HBA1C ####[place] [address] Glucose mass conc 83 mg/dL Normal 65-100 [facility] Comment on above: Performed By: #### C MP, IRON, CBCDIF ####[address] #### FERR, HBA1C ####[address] [place] [phone] Potassium molar conc 4.4 mmol/L Normal 3.5-5.0 [facility] Comment on above: Performed By: #### C MP, IRON, CBCDIF ####[place] [id number]#### FERR, HBA1C ####[address] [place] [phone] Protein 7.1 g/dL Normal 6.0-8.4 [facility] Comment on above: Performed By: #### C MP, IRON, CBCDIF ####[place] [id number]#### FERR, HBA1C ####[place] [phone] Sodium 140 mmol/L Normal 135-146 [facility] Comment on above: Performed By: #### C MP, IRON, CBCDIF ####[place] [id number]#### FERR, HBA1C ####[place] [phone] Urea nitrogen 18 mg/dL Normal 10-25 [facility] Comment on above: Performed By: #### C MP, IRON, CBCDIF ####[place] [id number]#### FERR, HBA1C ####[place] [phone] Ferritinon 06-17-2017 Ferritin 45.3 ng/mL Normal 30.3-565.7 [facility] Comment on above: Performed By: #### C MP, IRON, CBCDIF ####[place] [id number]#### FERR, HBA1C ####[address] [place] [phone] Hemoglobin A1con 06-17-2017 Glucose mass conc 105 mg/dL Normal [facility] Comment on above: Result Comment: eAG: (Estimated average glucose) is a calculated value from HgbA1c and is advertising representative of the average blood glucose level in the last 2-3 month period. Performed By: #### C MP, IRON, CBCDIF ####[place] [id number]#### FERR, HBA1C ####[place] [phone] Hemoglobin A1c/Hemoglobin.total mass fraction (Bld) 5.3 % Normal 4.3-5.6 [facility] Comment on above: Performed By: #### C MP, IRON, CBCDIF ####[place] [id number]#### FERR, HBA1C ####[place] [phone] Iron and TIBCon 06-17-2017 Iron 42 ug/dL Normal 35-150 [facility] Comment on above: Performed By: #### C MP, IRON, CBCDIF ####[place] [id number]#### FERR, HBA1C ####[place] [phone] TIBC 335 ug/dL Normal 250-450 [facility] Comment on above: Performed By: #### C MP, IRON, CBCDIF ####[place] [id number]#### FERR, HBA1C ####[place] [phone] Transferrin Saturatn 13 % Low 20-55 [facility] Comment on above: Performed By: #### C MP, IRON, CBCDIF ####[place] [id number]#### FERR, HBA1C ####[place] [address] [place] [phone] Staph aureus PCRon 7 MRSA PCR Negative [facility] Comment on above: Performed By: #### S APCR ####[place] [phone] S aureus Spec Source Nasal [facility] Comment on above: Performed By: #### S APCR ####[place] [id number] [phone] Staph aureus PCR Negative [facility] Comment on above: Performed By: #### S APCR ####[place] [id number] [phone] Type and SCR (30D)on 017 ABO/RH(D) Negative [facility] Comment on above: Performed By: #### T SCR30 ####[place] [id number] Antibody Screen Negative [facility] Comment on above: Performed By: #### T SCR30 ####[place] [id number] HOSPon 05-20-2017 HOSP Patient:Eddi Correa [place].MRN: [...] ORAL per tablettamsulosin (FLOMAX) 0.4 mg ORAL Pn74Awhymmndl Sulfate 1.25 mg/3 mL INHALATION nebulizer solutionALBUTEROL [...] myelopathy [M51.24]Carpal tunnel syndrome [G56.00]SPRAIN OF NECK (4) [S13.9XXA]Displacement of cervical intervertebral disc without myelopathy [...] 40.0 % 06/17/2017 51.0 39.0Progress Notes (PT [facility]):Nisa Jackman PT 06/24/2017 10:58 AM SignedPatient was seen for TKR measurements today.See flowsheet data for results of measurement.Nisa Jackman PT, DPTProgress Notes (PRE ANES ISLAM):Lily Porras CNP 06/17/2017 1:29 PM SignedHISTORY AND PHYSICAL EXAMINATIONSERVICE DATE: 06/17/2017SERVICE TIME: 9:03 [facility]: NANCY Wolf FOR VISIT:Alisia Correa [...] HISTORYProcedure Laterality Date- [facility]/ [facility]- EGD W/O OR W/BRUSH/WASH [...] documented by Carla Edwards LPN on 04/15/2017 [id number].Pt reports ALL Medications are accurate 04/15/17CURRENT ALLERGIES:ALLERGIESAllerg en Reactions- Avelox [Moxifloxaci* Rash, Hives, Itching, Shortness of Breath- Celebrex [Celecoxib] Rash, Hives, GI Upset- Erythromycin Base Hives, Shortness of Breath- Klonopin [Clonazepa* Itching- Levaquin [Levofloxa* HivesREVIEW OF SYSTEMS:PAIN ASSESSMENT: PainPain Score: 5/10Pain Location: Knee-RightDescription: Dull;AchingDuration Amount of Time: 1Duration Units: YearsFrequency: ContinuousIntervention: ColdGeneral: No weight loss, malaise or fevers.Neuro: No history of TIA's, stroke, QUALITY RN tumor, impaired sensorium, hemiplegia,paraplegia or quadraplegia. No neurological symptoms or problems., Postive forNo history of TIA's, stroke, QUALITY RN tumor, impaired sensorium, hemiplegia,paraplegia or quadraplegia. No neurological symptoms or problems.Respiratory: Positive for Asthma, Mild COPD: daily inhalers + prn. Smoker. YOLA(doesn not use cpap)Cardiovascular: No history of HTN requiring medication, no history of angina,CHF, NE, cardiac surgery or stents. Denies rest pain, [...] 17, 2017 : 9:03 AM PAGER/CONTACT #: [phone] Ellis, CNP 06/17/2017 9:48 AM AddendumPATIENT PREOPERATIVE INSTRUCTIONSSwati Senior MD has scheduled you for your procedure at this surgerycenter:[facility]: [phone] --[address] [place] [address].You will need to call the day prior [...] cold, or flu, or have other changes [facility] within TWO DAYS of scheduled surgery or the morning of surgery,please contact the surgery center above.Personal Belongings:- Leave ALL valuables and money at home or with family members. Arrival Time for Surgery:- You MUST call [facility] the afternoon before surgery [...] class with dates and timesprovided. Ny Chao SECURITY DISPATCHER [facility] Vital Signs Date Time Vital Sign Value Performing Clinician Facility 03-16-2025 09:27-0400 Body height 177.8 cm Heidy Marin MD Work Phone: [facility] 03-16-2025 09:27-0400 Body mass index (BMI) [Ratio] 33.72 kg/m2 Heidy Marin MD Work Phone: [facility] 03-16-2025 09:27-0400 Body temperature 97.59 [degF] Heidy Marin MD Work Phone: [facility] 03-16-2025 09:27-0400 Body weight 106.59 kg Heidy Marin MD Work Phone: [facility] 03-16-2025 09:27-0400 Diastolic blood pressure 70 mm[Hg] Heidy Marin MD Work Phone: [facility] 03-16-2025 09:27-0400 Heart rate 73 /min Heidy Marin MD Work Phone: [facility] 03-16-2025 09:27-0400 SaO2% (BldA) [Mass fraction] 93 % Heidy Marin MD Work Phone: [facility] 03-16-2025 09:27-0400 Systolic blood pressure 106 mm[Hg] Heidy Marin MD Work Phone: [facility] 01-30-2025 14:04-0400 Body temperature 97.1 [degF] Ellen Kuns DO Work Phone: [facility] 01-30-2025 14:04-0400 Diastolic blood pressure 88 mm[Hg] Ellen Kuns DO Work Phone: [facility] 01-30-2025 14:04-0400 Heart rate 72 /min Ellen Kuns DO Work Phone: [facility] 01-30-2025 14:04-0400 Systolic blood pressure 132 mm[Hg] Ellen Kuns DO Work Phone: [facility] 12-29-2024 13:57-0400 Body height 177.8 cm Ellen Kuns DO Work Phone: [facility] 12-29-2024 13:57-0400 Body mass index (BMI) [Ratio] 33 kg/m2 Ellen Kuns DO Work Phone: [facility] 12-29-2024 13:57-0400 Body weight 104.32 kg Ellen Kuns DO Work Phone: [facility] 12-29-2024 13:57-0400 Diastolic blood pressure 80 mm[Hg] Ellen Kuns DO Work Phone: [facility] 12-29-2024 13:57-0400 Heart rate 72 /min Ellen Kuns DO Work Phone: [facility] 12-29-2024 13:57-0400 Respiratory rate 18 /min Ellen Kuns DO Work Phone: [facility] 12-29-2024 13:57-0400 SaO2% (BldA) [Mass fraction] 97 % Ellen Kuns DO Work Phone: [facility] 12-29-2024 13:57-0400 Systolic blood pressure 110 mm[Hg] Ellen Kuns DO Work Phone: [facility] 11-28-2024 16:16-0500 Diastolic blood pressure 94 mm[Hg] LYN RODRI [facility] 11-28-2024 16:16-0500 Heart rate 79 /min LYN RODRI [facility] 11-28-2024 16:16-0500 Mean blood pressure 115 mm[Hg] LYN RODRI [facility] 11-28-2024 16:16-0500 Respiratory rate 18 /min LYN MACE [facility] 11-28-2024 16:16-0500 Systolic blood pressure 156 mm[Hg] LYN MACE [facility] 09-27-2024 18:05-0500 Body temperature 98 [degF] Ellen Kuns DO Work Phone: [facility] 09-27-2024 18:03-0500 Diastolic blood pressure 80 mm[Hg] Ellen Kuns DO Work Phone: [facility] 09-27-2024 18:03-0500 Heart rate 59 /min Ellen Kuns DO Work Phone: [facility] 09-27-2024 18:03-0500 Respiratory rate 20 /min Ellen Kuns DO Work Phone: [facility] 09-27-2024 18:03-0500 SaO2% (BldA) [Mass fraction] 95 % Ellen Kuns DO Work Phone: [facility] 09-27-2024 18:03-0500 Systolic blood pressure 141 mm[Hg] Ellen Kuns DO Work Phone: [facility] 09-27-2024 17:31-0500 Inhaled oxygen flow rate 6 L/min Ellen Kuns DO Work Phone: [facility] 09-27-2024 15:56-0500 Body height 177.8 cm Ellen Kuns DO Work Phone: [facility] 09-27-2024 15:56-0500 Body weight 102.05 kg Ellen Kuns DO Work Phone: [facility] 09-27-2024 12:15-0500 Blood Pressure Location LYN RODRI [facility] 09-27-2024 12:15-0500 Body temperature 98.78 [degF] LYN MACE [facility] 09-27-2024 12:15-0500 Diastolic blood pressure 71 mm[Hg] LYN MACE [facility] 09-27-2024 12:15-0500 Heart rate 65 /min LYN MACE [facility] 09-27-2024 12:15-0500 Respiratory rate 20 /min LYN MACE [facility] 09-27-2024 12:15-0500 Systolic blood pressure 101 mm[Hg] LYN MACE [facility] 08-23-2024 11:30-0500 Body height 177.8 cm Samira Bowden MD Work Phone: [facility] 08-23-2024 11:30-0500 Body mass index (BMI) [Ratio] 33 kg/m2 [facility] Bow[facility] 08-23-2024 11:30-0500 Body weight 104.33 kg Samira Bowden MD Work Phone: [facility] Comment on above: patient reported 08-23-2024 11:30-0500 Diastolic blood pressure 72 mm[Hg] Samira Bowden MD [facility] 08-23-2024 11:30-0500 Heart rate 78 /min Samira Bowden MD [facility] 08-23-2024 11:30-0500 Systolic blood pressure 116 mm[Hg] Samira Bowden MD Work Phone: [facility] 06-21-2024 14:11-0400 Body height 177.8 cm [facility] 06-21-2024 14:11-0400 Body mass index (BMI) [Ratio] 30.1 kg/m2 [facility] 06-21-2024 14:11-0400 Body weight 95.25 kg [facility] 06-21-2024 14:11-0400 Diastolic blood pressure 60 mm[Hg] [facility] 06-21-2024 14:11-0400 Heart rate 55 /min [facility] 06-21-2024 14:11-0400 Respiratory rate 16 /min [facility] 06-21-2024 14:11-0400 SaO2% (BldA) [Mass fraction] 98 % [facility] 06-21-2024 14:11-0400 Systolic blood pressure 100 mm[Hg] [facility] 04-26-2024 17:17-0400 Body weight 6 mg [facility] 03-17-2024 11:58-0400 Diastolic blood pressure 62 mm[Hg] Heidy Marin MD Work Phone: [facility] 03-17-2024 11:58-0400 Systolic blood pressure 100 mm[Hg] Heidy Marin MD Work Phone: [facility] 03-17-2024 11:57-0400 Body mass index (BMI) [Ratio] 30.13 kg/m2 Heidy Marin MD Work Phone: [facility] 03-17-2024 11:57-0400 Body weight 95.25 kg Heidy Marin MD Work Phone: [facility] 03-17-2024 11:57-0400 Heart rate 70 /min Heidy Marin MD Work Phone: [facility] 03-15-2024 11:18-0400 Blood Pressure Location Pippa Duncan [facility] 03-15-2024 11:18-0400 Body temperature 98.24 [degF] Pippa Orzech [facility] 03-15-2024 11:18-0400 Diastolic blood pressure 88 mm[Hg] Pippa Orzech [facility] 03-15-2024 11:18-0400 Heart rate 73 /min Pippa Orzech [facility] 03-15-2024 11:18-0400 Respiratory rate 16 /min Pippa Orzech [facility] 03-15-2024 11:18-0400 Systolic blood pressure 138 mm[Hg] Pippa Orzech [facility] 02-11-2024 10:18-0400 Diastolic blood pressure 80 mm[Hg] DO Ellen Kuns Work Phone: [facility] 02-11-2024 10:18-0400 Heart rate 60 /min DO Ellen Kuns Work Phone: [facility] 02-11-2024 10:18-0400 Respiratory rate 16 /min DO Ellen Kuns Work Phone: [facility] 02-11-2024 10:18-0400 SaO2% (BldA) [Mass fraction] 97 % DO Ellen Kuns Work Phone: [facility] 02-11-2024 10:18-0400 Systolic blood pressure 139 mm[Hg] DO Ellen Kuns Work Phone: [facility] 02-11-2024 08:29-0400 Body height 177.8 cm DO Ellen Kuns Work Phone: [facility] 02-11-2024 08:29-0400 Body weight 95.25 kg DO Ellen Kuns Work Phone: [facility] 02-10-2024 13:09-0400 Body height 180.34 cm [facility] 02-10-2024 13:09-0400 Body mass index (BMI) [Ratio] 29.2 kg/m2 [facility] 02-10-2024 13:09-0400 Body weight 95.25 kg [facility] 02-10-2024 13:09-0400 Diastolic blood pressure 60 mm[Hg] [facility] 02-10-2024 13:09-0400 Heart rate 67 /min [facility] 02-10-2024 13:09-0400 Respiratory rate 16 /min [facility] 02-10-2024 13:09-0400 SaO2% (BldA) [Mass fraction] 97 % [facility] 02-10-2024 13:09-0400 Systolic blood pressure 112 mm[Hg] [facility] 01-28-2024 11:06-0400 Body height 177.8 cm Heidy Marin MD Work Phone: [facility] 01-28-2024 11:06-0400 Body mass index (BMI) [Ratio] 30.13 kg/m2 Heidy Marin MD Work Phone: [facility] 01-28-2024 11:06-0400 Body weight 95.25 kg Heidy Marin MD Work Phone: [facility] 01-28-2024 11:06-0400 Diastolic blood pressure 69 mm[Hg] Heidy Marin MD Work Phone: [facility] 01-28-2024 11:06-0400 Systolic blood pressure 100 mm[Hg] Heidy Marin MD Work Phone: [facility] 01-22-2024 08:59-0400 Body height 180.34 cm [facility] 01-22-2024 08:59-0400 Body mass index (BMI) [Ratio] 27.8 kg/m2 [facility] 01-22-2024 08:59-0400 Body weight 90.71 kg [facility] 01-22-2024 08:59-0400 Diastolic blood pressure 62 mm[Hg] [facility] 01-22-2024 08:59-0400 Heart rate 62 /min [facility] 01-22-2024 08:59-0400 Systolic blood pressure 112 mm[Hg] [facility] 11-16-2023 13:17-0500 Diastolic blood pressure 82 mm[Hg] Reena Cervantes APRN-RESIDENTIAL CHILD CARE COUNSELOR Work Phone: [employer] 11-16-2023 13:17-0500 Heart rate 58 /min Reena Cervantes EMBEDDED FIRMWARE ENGINEER-RESIDENTIAL CHILD CARE COUNSELOR Work Phone: [employer] 11-16-2023 13:17-0500 Systolic blood pressure 144 mm[Hg] Reena Cervantes EMBEDDED FIRMWARE ENGINEER-RESIDENTIAL CHILD CARE COUNSELOR Work Phone: [employer] 11-10-2023 14:30-0500 Body height 180.34 cm Ellen Michis Other [facility] 11-10-2023 14:30-0500 Diastolic blood pressure 80 mm[Hg] Ellen Kuns Other [facility] 11-10-2023 14:30-0500 Respiratory rate 16 /min Ellen Kuns Other [employer] Other 11-10-2023 14:30-0500 SaO2% (BldA) [Mass fraction] 94 % Ellen Kuns Other [employer] Other 11-10-2023 14:30-0500 Systolic blood pressure 128 mm[Hg] Ellen Kuns Other [facility] 09-02-2023 13:45-0500 Body height 180.34 cm Ellen Kuns Other [employer] Other 09-02-2023 13:45-0500 Diastolic blood pressure 62 mm[Hg] Ellen Kuns Other [employer] Other 09-02-2023 13:45-0500 Respiratory rate 18 /min Ellen Kuns Other [employer] Other 09-02-2023 13:45-0500 SaO2% (BldA) [Mass fraction] 97 % Ellen Kuns Other [employer] Other 09-02-2023 13:45-0500 Systolic blood pressure 92 mm[Hg] Ellen Kuns Other [employer] Other 05-19-2023 15:15-0400 Body height 180.34 cm Ellen Kuns Other [employer] Other 05-19-2023 15:15-0400 Diastolic blood pressure 60 mm[Hg] Ellen Kuns Other [employer] Other 05-19-2023 15:15-0400 Respiratory rate 18 /min Ellen Kuns Other [employer] Other 05-19-2023 15:15-0400 SaO2% (BldA) [Mass fraction] 98 % Ellen Kuns Other [employer] Other 05-19-2023 15:15-0400 Systolic blood pressure 80 mm[Hg] Ellen Kuns Other [employer] Other 03-20-2023 09:06-0400 Blood Pressure Location Fidel IBARRA [facility] 03-20-2023 09:06-0400 Diastolic blood pressure 78 mm[Hg] Fidel IBARRA [facility] 03-20-2023 09:06-0400 Heart rate 70 /min Fidel IBARRA [facility] 03-20-2023 09:06-0400 Respiratory rate 16 /min Fidel IBARRA [facility] 03-20-2023 09:06-0400 Systolic blood pressure 132 mm[Hg] Fidel IBARRA [facility] 02-20-2023 09:33-0400 Blood Pressure Location Fidel IBARRA [facility] 02-20-2023 09:33-0400 Diastolic blood pressure 78 mm[Hg] Fidel IBARRA [facility] 02-20-2023 09:33-0400 Heart rate 68 /min Fidel IBARRA [facility] [facility] 02-20-2023 09:33-0400 Respiratory rate 16 /min Fidel IBARRA [facility] 02-20-2023 09:33-0400 Systolic blood pressure 130 mm[Hg] Fidel IBARRA [facility] 01-30-2023 11:54-0400 Blood Pressure Location Fidel IBARRA [facility] 01-30-2023 11:54-0400 Diastolic blood pressure 72 mm[Hg] Fidel IBARRA [facility] 01-30-2023 11:54-0400 Heart rate 68 /min Fidel IBARRA [facility] 01-30-2023 11:54-0400 Respiratory rate 16 /min Fidel IBARRA [facility] 01-30-2023 11:54-0400 Systolic blood pressure 99 mm[Hg] Fidel IBARRA [facility] 11-11-2022 15:00-0500 Body height 180.34 cm Ellen Kuns Other [employer] Other 11-11-2022 15:00-0500 Body mass index (BMI) [Ratio] 28.59 kg/m2 Ellen Kuns Other [employer] Other 11-11-2022 15:00-0500 Body temperature 95.6 [degF] Ellen Kuns Other [employer] Other 11-11-2022 15:00-0500 Body weight 92.99 kg Ellen Kuns Other [employer] Other 11-11-2022 15:00-0500 Diastolic blood pressure 56 mm[Hg] Ellen Kuns Other [employer] Other 11-11-2022 15:00-0500 Respiratory rate 18 /min Ellen Kuns Other [employer] Other 11-11-2022 15:00-0500 SaO2% (BldA) [Mass fraction] 99 % Ellen Kuns Other [employer] Other 11-11-2022 15:00-0500 Systolic blood pressure 80 mm[Hg] Ellen Kuns Other [employer] Other 09-02-2022 14:45-0500 Body height 180.34 cm Elleneliane Bordens Other [employer] Other 09-02-2022 14:45-0500 Body mass index (BMI) [Ratio] 27.19 kg/m2 Ellen Kuns Other [employer] Other 09-02-2022 14:45-0500 Body weight 88.45 kg Ellen Michis Other [employer] Other 09-02-2022 14:45-0500 Diastolic blood pressure 60 mm[Hg] Ellen Kuns Other [employer] Other 09-02-2022 14:45-0500 Respiratory rate 18 /min Elleneliane Bordens Other [employer] Other 09-02-2022 14:45-0500 SaO2% (BldA) [Mass fraction] 92 % Elleneliane Bordens Other [employer] Other 09-02-2022 14:45-0500 Systolic blood pressure 92 mm[Hg] Ellen Michis Other [employer] Other 02-18-2022 09:29-0400 Diastolic blood pressure 55 mm[Hg] Frank Reddy MD Work Phone: [employer] 02-18-2022 09:29-0400 Systolic blood pressure 105 mm[Hg] Frank Reddy MD Work Phone: [employer] 02-18-2022 08:30-0400 Body temperature 97.9 [degF] Frank Reddy MD Work Phone: [employer] 02-18-2022 08:30-0400 Heart rate 75 /min Frank Reddy MD Work Phone: [employer] 02-18-2022 08:30-0400 Respiratory rate 18 /min Frank Reddy MD Work Phone: [employer] 02-18-2022 08:30-0400 SaO2% (BldA) [Mass fraction] 97 % Frank Reddy MD Work Phone: [employer] 02-09-2022 05:15-0400 Body mass index (BMI) [Ratio] 34.44 kg/m2 Frank Reddy MD Work Phone: [employer] 02-09-2022 05:15-0400 Body weight 108.86 kg Frank Reddy MD Work Phone: [employer] 02-07-2022 09:09-0400 Body height 177.8 cm Frank Reddy MD Work Phone: [employer] 01-27-2022 10:15-0400 Body height 180.34 cm Ellen UZwans Other [employer] Other 01-27-2022 10:15-0400 Body mass index (BMI) [Ratio] 29.15 kg/m2 Ellen UZwans Other [employer] Other 01-27-2022 10:15-0400 Body weight 94.8 kg Ellen UZwans Other [employer] Other 01-27-2022 10:15-0400 Diastolic blood pressure 70 mm[Hg] Ellen Kuns Other [employer] Other 01-27-2022 10:15-0400 Respiratory rate 18 /min Ellen UZwans Other [employer] Other 01-27-2022 10:15-0400 SaO2% (BldA) [Mass fraction] 98 % Ellen UZwans Other [employer] Other 01-27-2022 10:15-0400 Systolic blood pressure 98 mm[Hg] Ellen Kuns Other [employer] Other 12-05-2021 15:00-0500 Body height 180.34 cm Ellen Kuns Other [employer] Other 12-05-2021 15:00-0500 Body mass index (BMI) [Ratio] 29.43 kg/m2 Ellen Kuns Other [employer] Other 12-05-2021 15:00-0500 Body weight 95.71 kg Ellen Kuns Other [employer] Other 12-05-2021 15:00-0500 Diastolic blood pressure 70 mm[Hg] Ellen Kuns Other [employer] Other 12-05-2021 15:00-0500 Respiratory rate 18 /min Ellen Kuns Other [employer] Other 12-05-2021 15:00-0500 SaO2% (BldA) [Mass fraction] 99 % Ellen Kuns Other [employer] Other 12-05-2021 15:00-0500 Systolic blood pressure 106 mm[Hg] Ellen Kuns Other [employer] Other 12-03-2021 16:32-0500 Body height 177.8 cm [employer] 12-03-2021 16:32-0500 Body mass index (BMI) [Ratio] 30.42 kg/m2 [employer] 12-03-2021 16:32-0500 Body surface area Derived from formula 2.18 m2 [employer] 12-03-2021 16:32-0500 Body weight 96.16 kg [facility] 12-03-2021 16:32-0500 Diastolic blood pressure 62 mm[Hg] [employer] 12-03-2021 16:32-0500 Heart rate 80 /min [facility] 12-03-2021 16:32-0500 Systolic blood pressure 102 mm[Hg] [employer] 11-19-2021 14:44-0500 Body height 177.8 cm [facility] 11-19-2021 14:44-0500 Body mass index (BMI) [Ratio] 31.18 kg/m2 [employer] 11-19-2021 14:44-0500 Body surface area Derived from formula 2.21 m2 [employer] 11-19-2021 14:44-0500 Body weight 98.57 kg [employer] 11-19-2021 14:44-0500 Diastolic blood pressure 70 mm[Hg] [employer] 11-19-2021 14:44-0500 Heart rate 64 /min [employer] 11-19-2021 14:44-0500 Systolic blood pressure 110 mm[Hg] [facility] 09-05-2021 12:00-0500 58 1 Ellen R Kuns Work Phone: [facility] [place] [place] Work Phone: Comment on above: [id number] 08-27-2021 11:30-0500 Body height 180.34 cm Ellen Kuns Other [employer] Other 08-27-2021 11:30-0500 Body mass index (BMI) [Ratio] 31.24 kg/m2 Ellen Kuns Other [employer] Other 08-27-2021 11:30-0500 Body weight 101.61 kg Ellen Kuns Other [employer] Other 08-27-2021 11:30-0500 Diastolic blood pressure 68 mm[Hg] Ellen Kuns Other [employer] Other 08-27-2021 11:30-0500 Respiratory rate 18 /min Ellen Kuns Other [employer] Other 08-27-2021 11:30-0500 SaO2% (BldA) [Mass fraction] 98 % Ellen Kuns Other [employer] Other 08-27-2021 11:30-0500 Systolic blood pressure 98 mm[Hg] Ellen Kuns Other [employer] Other 08-16-2021 14:23-0400 Diastolic blood pressure 68 mm[Hg] Ellen R Kuns Work Phone: [facility] [employer] [address] DO Work Phone: 08-16-2021 14:23-0400 Systolic blood pressure 90 mm[Hg] Ellen R Kuns Work Phone: [facility] [address] DO Work Phone: 08-16-2021 14:21-0400 Body height 177.8 cm Ellen R Kuns Work Phone: [facility] [address] DO Work Phone: 08-16-2021 14:21-0400 Body mass index (BMI) [Ratio] 32.14 kg/m2 Ellen R Kuns Work Phone: [facility] DO Work Phone: 08-16-2021 14:21-0400 Body surface area Derived from formula 2.19 m2 Ellen R Kuns Work Phone: [facility] [address] DO Work Phone: 08-16-2021 14:21-0400 Body weight 101.61 kg Ellen R Kuns Work Phone: [facility] [address] DO Work Phone: 08-16-2021 14:21-0400 Diastolic blood pressure 68 mm[Hg] Ellen R Kuns Work Phone: [facility] [address] DO Work Phone: 08-16-2021 14:21-0400 Heart rate 72 /min Ellen R Kuns Work Phone: [facility] [address] DO Work Phone: 08-16-2021 14:21-0400 Systolic blood pressure 90 mm[Hg] Ellen R Kuns Work Phone: [facility] [address] DO Work Phone: Encounters Encounter Date Encounter Type Care Provider Facility Start: 06-14-2025 ambulatory Michelle Mahoney Facility:[facility] Start: 05-15-2025 End: 05-15-2025 ambulatory LYN Skyla RODRI Facility:[facility] Start: 05-15-2025 End: 05-15-2025 Patient encounter procedure LYN MACE [facility] Start: 04-26-2025 End: 04-26-2025 Orders Only Lyn Banks MD Work Phone: [facility] - Neurophysiology Comment on above: Chronic intractable headache, unspecified headache type (Primary Dx) Start: 04-25-2025 End: 04-25-2025 ambulatory [facility] Start: 04-24-2025 End: 04-24-2025 ambulatory LYN MACE Facility:[facility] Start: 04-24-2025 End: 04-24-2025 Patient encounter procedure LYN MACE [facility] Start: 04-19-2025 End: 04-19-2025 Orders Only Lyn Banks MD Work Phone: [facility] - Neurophysiology Comment on above: Parkinson's disease without dyskinesia or fluctuating manifestations (CMS-HCC) (Primary Dx); Dysphagia, unspecified type Start: 04-11-2025 End: 04-11-2025 Clinisync Result Encounter Heidy Marin MD Work Phone: [facility] External Department Unsolicited Start: 04-11-2025 End: 04-11-2025 Clinisync Result Encounter Heidy Marin MD Work Phone: [facility] External Department Unsolicited Start: 04-05-2025 End: 04-05-2025 ambulatory [facility] Start: 04-04-2025 End: 04-06-2025 Refill Samira Bowden MD Work Phone: [facility] Comment on above: Spinal stenosis of l umbar region with neurogenic claudication Start: 03-31-2025 End: 03-31-2025 Orders Only Lyn Banks MD Work Phone: [facility] Comment on above: Dysautonomia orthost atic hypotension syndrome (Primary Dx) Start: 03-31-2025 End: 03-31-2025 Patient encounter procedure LYN MACE [facility] Start: 03-29-2025 End: 03-29-2025 ambulatory LYNSELENA BANKS [facility] Start: 03-16-2025 End: 03-16-2025 Office outpatient visit 15 minutes Heidy Marin MD Work Phone: [facility] Vascular Surgery Comment on above: Encounter for abdomi nal aortic aneurysm (AAA) screening (Primary Dx); Open wound of left great toe, subsequent encounter; Critical limb ischemia of left lower extremity with gangrene ([facility]) Start: 03-16-2025 End: 03-16-2025 [facility]ulatory [facility] Start: 03-14-2025 End: 03-14-2025 ambulatory [facility] Start: 03-14-2025 End: 03-14-2025 Office outpatient visit 40 minutes Lyn Banks MD Work Phone: [facility] Comment on above: Dysphagia, unspecifi ed type (Primary Dx); Globus sensation; Dysautonomia orthostatic hypotension syndrome; Constipation, unspecified constipation type; Cerebellar dysmetria Start: 03-10-2025 End: 03-10-2025 ambulatory LYN MACE Facility:[facility] Start: 02-28-2025 End: 02-28-2025 Clinisync Result Encounter Heidy Marin MD Work Phone: [facility] External Department Unsolicited Start: 02-28-2025 End: 02-28-2025 Clinisync Result Encounter Heidy Marin MD Work Phone: [facility] External Department Unsolicited Start: 02-24-2025 ambulatory LYN E RODRI Facili ty:[facility] Start: 02-17-2025 End: 02-17-2025 ambulatory LYN E RODRI Facility:[facility] Start: 02-15-2025 End: 02-15-2025 ambulatory Ellen Kuns DO Work Phone: [facility] Work Phone: Start: 02-15-2025 End: 02-15-2025 Patient encounter procedure Ellen Kuns DO Work Phone: [facility] Ctr-CT Scan [place] Work Phone: Start: 01-30-2025 End: 01-30-2025 Patient encounter procedure Ellen Kuns DO Work Phone: [facility] Infect Dis Work Phone: Start: 01-26-2025 End: 01-26-2025 ambulatory LYN E RODRI Facility:[facility] Start: 12-29-2024 End: 12-29-2024 ambulatory Ellen Kuns DO Work Phone: [facility] Work Phone: Start: 12-29-2024 End: 12-29-2024 Patient encounter procedure Ellen Kuns DO Work Phone: [facility] [place] Work Phone: Start: 12-27-2024 End: 12-27-2024 ambulatory LYN E RODRI Facility:[facility] Start: 12-13-2024 Non-patient / Non-visit Ellen Kuns DO Work Phone: [facility] Work Phone: Start: 12-13-2024 End: 12-13-2024 ambulatory Ellen Kuns DO Work Phone: [facility] Work Phone: Start: 12-13-2024 End: 12-13-2024 Departed Referred Ellen Bordens DO Work Phone: [facility]-LAB Path Spec [facility] Start: 12-13-2024 Non-patient / Non-visit Elleneliane Bordens DO Work Phone: [facility] Work Phone: Start: 11-28-2024 End: 11-28-2024 ambulatory LYN E RODRI Facility:[facility] Start: 11-28-2024 End: 11-28-2024 Lab Drop off LYN E RODRI [facility] Start: 11-28-2024 End: 11-28-2024 ambulatory LYN E RODRI Facility:[facility] Start: 11-28-2024 End: 11-28-2024 Patient encounter procedure LYN E RODRI [facility] Start: 11-28-2024 End: 11-28-2024 Patient encounter procedure Elleneliane Bordens DO Work Phone: [facility] C[facility]-Lab [place] Work Phone: Start: 11-28-2024 End: 11-28-2024 ambulatory Elleneliane Crabtree DO Work Phone: [facility] Work Phone: Start: 11-25-2024 ambulatory LYN E RODRI Facili ty:[facility] Start: 11-23-2024 End: 11-23-2024 Isabelle Bowden MD Work [facility]: [facility] Comment on above: Parkinson's disease ([facility]) Start: 11-23-2024 End: 11-23-2024 Refabel Bowden MD Work Phone: [facility] Comment on above: Parkinson's disease [facility] Start: 11-19-2024 End: 11-21-2024 Refill Samira Bowden MD Work Phone: [facility] Comment on above: Parkinson's disease ([facility] Start: 10-28-2024 End: 10-28-2024 ambulatory PA-C LYN E RODRI Facility:[facility] Start: 10-28-2024 End: 10-28-2024 Patient encounter procedure LYN Skyla RODRI [facility] Start: 10-24-2024 End: 10-24-2024 Refill Samira Bowden MD Work Phone: [facility] Comment on above: Orthostasis Start: 09-27-2024 End: 09-27-2024 Emergency department patient visit Elleneliane Crabtree Work Phone: [facility]-Emergency Room Work Phone: Start: 09-27-2024 End: 09-27-2024 ambulatory PA-C LYN E RODRI Facility:[facility] Start: 09-27-2024 End: 09-27-2024 Lab Drop off LYN E RODRI [facility] Start: 09-27-2024 End: 09-27-2024 ambulatory PA-C LYN E RODRI [facility] Start: 09-27-2024 End: 09-27-2024 Patient encounter procedure LYN E RODRI [facility] Start: 09-26-2024 End: 09-30-2024 Refill Reena SPEARS Work Phone: [facility] Comment on above: Orthostasis Start: 09-25-2024 End: 09-30-2024 Refill Jose Eduardo Owen MD Work Phone: [facility] Comment on above: Migraine without aur a and without status migrainosus, not intractable Spinal stenosis of l umbar region with neurogenic claudication Start: 08-30-2024 End: 08-30-2024 ambulatory PA-C LYN Crum RODRI [facility] Start: 08-30-2024 End: 08-30-2024 Patient encounter procedure LYN MACE [facility] Start: 08-29-2024 End: 08-31-2024 Refill Samira Bowden MD Work Phone: [facility] Comment on above: Parkinson's disease ([facility]) Start: 08-23-2024 End: 08-23-2024 Office outpatient visit 40 minutes Samira Bowden MD Work Phone: [facility] Comment on above: 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[facility]) (Primary Dx); Spinal stenosis of lumbar region with neurogenic claudication; Parkinson's disease without dyskinesia or fluctuating manifestations ([facility]) Start: 08-23-2024 End: 08-23-2024 ambulatory [facility] Start: 08-09-2024 End: 08-09-2024 ambulatory Pippa X Orzech [facility] Start: 08-09-2024 End: 08-09-2024 Patient encounter procedure Pippa X Orzech [facility] Start: 07-31-2024 End: 08-03-2024 Refill Reena SPEARS Work Phone: [facility] Comment on above: Spinal stenosis of l umbar region with neurogenic claudication Start: 07-19-2024 End: 07-19-2024 ambulatory PA-C LYN MACE [facility] Start: 07-19-2024 End: 07-19-2024 Patient encounter procedure LYN MACE [facility] Start: 07-14-2024 End: 07-15-2024 Refill Reena Cervantes [employer] FIRMWARE ENGINEER-RESIDENTIAL CHILD CARE COUNSELOR Work Phone: [facility] Comment on above: Orthostatic hypotens ion due to Parkinson's disease ([facility]) Start: 06-30-2024 End: 06-30-2024 ambulatory Madeline J Galea Facility:[facility] Start: 06-30-2024 End: 06-30-2024 Patient encounter procedure Madeline Lutzea [facility] Start: 06-21-2024 End: 06-21-2024 ambulatory [facility] Work Phone: Start: 06-21-2024 End: 06-21-2024 Patient encounter procedure [facility] [place] Work Phone: Start: 06-14-2024 End: 06-14-2024 ambulatory Fidel IBARRA Facility:[facility] Start: 06-14-2024 End: 06-14-2024 Lab Drop off Fidel IBARRA [facility] Start: 06-14-2024 End: 06-14-2024 ambulatory Fidel IBARRA Facility:[facility] Start: 06-14-2024 End: 06-14-2024 Patient encounter procedure Fidel IBARRA [facility] Start: 06-09-2024 End: 06-09-2024 ambulatory LYN MACE Facility:[facility] Start: 06-09-2024 End: 06-09-2024 Patient encounter procedure LYN MACE [facility] Start: 05-25-2024 Non-patient / Non-visit [facility] [place] Work Phone: Start: 05-24-2024 End: 05-25-2024 Refill Jose Eduardo Owen MD Work Phone: [facility] Comment on above: Migraine without aur a and without status migrainosus, not intractable Start: 05-16-2024 End: 05-16-2024 ambulatory Fidel Arin IBARRA Facility:[id number] Start: 04-27-2024 Non-patient / Non-visit [facility] Work Phone: Start: 04-26-2024 Non-patient / Non-visit [facility] Work Phone: Start: 04-26-2024 End: 04-26-2024 ambulatory Carl BRIZUELA Facility:[id number] Start: 04-25-2024 Non-patient / Non-visit [facility] Work Phone: Start: 04-24-2024 End: 04-27-2024 Non-patient / Non-visit [facility] Work Phone: Start: 04-24-2024 Non-patient / Non-visit [facility] Work Phone: Start: 04-23-2024 Non-patient / Non-visit [facility] Work Phone: Start: 04-11-2024 End: 04-29-2024 Refill Reena SPEARS Work Phone: [facility] Comment on above: Spinal stenosis of l umbar region with neurogenic claudication Start: 04-05-2024 End: 04-05-2024 Lab Drop off Pippa Duncan [facility] Start: 04-05-2024 End: 04-05-2024 ambulatory Pippa X Yurich Facility:[facility] Start: 04-05-2024 End: 04-05-2024 Patient encounter procedure Pippa X Orzech [facility] Start: 03-28-2024 End: 03-28-2024 Telephone encounter Rachel Mckeonedicradha [facility] Start: 03-17-2024 End: 03-17-2024 Office outpatient visit 15 minutes Heidy Marin MD Work Phone: [facility] Comment on above: 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 ([facility]) (Primary Dx) Start: 03-15-2024 End: 03-15-2024 ambulatory Pippa X Orzech Facility:[facility] Start: 03-15-2024 End: 03-15-2024 Patient encounter procedure Pippa X Yurich [facility] Start: 02-25-2024 End: 02-25-2024 Telephone encounter [facility] Start: 02-23-2024 End: 02-23-2024 ambulatory Fidel IBARRA Facility:[facility] Start: 02-23-2024 End: 02-23-2024 Lab Drop off Fidel IBARRA [facility] Start: 02-22-2024 End: 02-23-2024 ambulatory Fidel IBARRA Facility:[facility] Comment on above: Migraine without aur a and without status migrainosus, not intractable Start: 02-22-2024 End: 02-22-2024 Patient encounter procedure Fidel IBARRA [facility] Start: 02-18-2024 End: 02-18-2024 Telephone encounter Rachel Mixon CMA [facility] Start: 02-15-2024 End: 02-15-2024 Telephone encounter Rachel Mixon CMA [facility] Start: 02-13-2024 End: 02-15-2024 Refill Jose Eduardo Owen MD Work Phone: [facility] Comment on above: Migraine without aur a and without status migrainosus, not intractable Start: 02-11-2024 Non-patient / Non-visit DO Barbie tt Kuns Work Phone: [facility] Gastroenterology Work Phone: Start: 02-11-2024 End: 02-11-2024 Admission to same day surgery center DO Ellen Kuns Work Phone: [facility] Ctr-Digestive Health Work Phone: Start: 02-11-2024 End: 02-11-2024 ambulatory DO Ellen Kuns Work Phone: [facility] Work Phone: Start: 02-10-2024 End: 02-10-2024 ambulatory [facility] Work Phone: Start: 02-10-2024 End: 02-10-2024 Patient encounter procedure [facility] Family [facility] [place] Work Phone: Start: 02-09-2024 End: 02-15-2024 Isabelle Owen MD Work Phone: [facility] Comment on above: Migraine without aur a and without status migrainosus, not intractable Start: 02-01-2024 End: 02-01-2024 ambulatory Fidel IBARRA Facility:[facility] Start: 02-01-2024 End: 02-01-2024 Patient encounter procedure Fidel IBARRA [facility] Start: 01-28-2024 End: 01-28-2024 Telephone encounter [facility] Start: 01-28-2024 End: 01-28-2024 Office outpatient visit 25 minutes Heidy Marin MD Work Phone: [facility] Comment on above: Encounter for screen ing for abdominal aortic aneurysm (AAA) in patient 50 years of age or older with history of smoking (Primary Dx); Critical limb ischemia of both lower extremities with gangrene ([facility]); Abdominal aortic aneurysm dissection ([facility]) Start: 01-22-2024 End: 01-22-2024 ambulatory [facility] Work Phone: Start: 01-22-2024 End: 01-22-2024 Patient encounter procedure [facility] Gastroenterology Work Phone: Start: 01-12-2024 Telephone encounter [facility] Start: 01-11-2024 End: 01-11-2024 ambulatory Fidel IBARRA Facility:[facility] Start: 01-11-2024 End: 01-11-2024 Patient encounter procedure Fidel IBARRA [facility] Start: 01-08-2024 Telephone encounter [facility] Start: 01-06-2024 Non-patient / Non-visit [facility] Work Phone: Start: 12-14-2023 End: 12-14-2023 ambulatory Fidel IBARRA Facility:[facility] Start: 12-11-2023 Refill [facility] Comment on above: Orthostasis Start: 11-17-2023 Telephone encounter Ellen PILLAI [facility] [place] Start: 11-17-2023 End: 11-17-2023 ambulatory Fidel IBARRA [facility] [employer] Other Start: 11-17-2023 End: 11-17-2023 Patient encounter procedure Fidel IBARRA [facility] Start: 11-16-2023 End: 11-16-2023 Office outpatient visit 40 minutes Reena Crum Billy LAWRENCERESIDENTIAL CHILD CARE COUNSELOR Work Phone: [facility] Comment on above: Parkinson's disease without dyskinesia or fluctuating manifestations (Primary Dx); Spinal stenosis of lumbar region with neurogenic claudication; Anxiety Start: 11-14-2023 Refill Samira amezquita MD [facility] Comment on above: Parkinson's disease Start: 11-10-2023 End: 11-10-2023 ambulatory Ellen Crabtree Other [employer] Other Start: 11-10-2023 Office outpatient vi sit 25 minutes Elleneliane Bordens [facility] Start: 11-10-2023 End: 11-10-2023 Patient encounter procedure [facility]- Start: 11-09-2023 End: 11-09-2023 ambulatory Samira Bowden MD Work Phone: [facility] Comment on above: Parkinson's disease Start: 11-09-2023 Telephone encounter Elleneliane Bordens [facility] [place] Start: 10-21-2023 End: 10-21-2023 Lab Drop off Fidel IBARRA [facility] Start: 10-21-2023 End: 10-21-2023 ambulatory Fidel IBARRA Facility:[facility] Start: 10-05-2023 End: 10-05-2023 ambulatory Ellen Michis Other [employer] Other Start: 10-05-2023 Telephone encounter Elleneliane Bordens [facility] [place] Start: 09-22-2023 End: 09-22-2023 ambulatory Ellen Kuns Other [employer] Other Start: 09-22-2023 Telephone encounter Ellen Kuns [facility] [place] Start: 09-16-2023 End: 09-16-2023 ambulatory Ellen Kuns Other [employer] Other Start: 09-16-2023 Telephone encounter Ellen Kuns [facility] [place] Start: 09-15-2023 Telephone encounter Ellen Kuns [facility] [place] Start: 09-15-2023 End: 09-15-2023 ambulatory Fidel IBARRA [employer] Other Start: 09-15-2023 End: 09-15-2023 Patient encounter procedure Fidel IBARRA [facility] Start: 09-02-2023 End: 09-02-2023 ambulatory Ellen Kuns Other [employer] Other Start: 09-02-2023 Office outpatient vi sit 25 minutes Ellen Kuns [facility] [place] Start: 08-25-2023 End: 08-25-2023 ambulatory Ellen Kuns Other [employer] Other Start: 08-25-2023 Telephone encounter Ellen Kuns [facility] [place] Start: 08-14-2023 End: 08-14-2023 ambulatory Fidel IBARRA Facility:[facility] Start: 08-14-2023 End: 08-14-2023 Patient encounter procedure Fidel IBARRA [facility] Start: 07-17-2023 End: 07-17-2023 ambulatory Fidel IBARRA Facility:[facility] Start: 07-17-2023 End: 07-17-2023 Lab Drop off Fidel IBARRA [facility] Start: 07-17-2023 End: 07-17-2023 ambulatory Fidel IBARRA Facility:[facility] Start: 07-17-2023 End: 07-17-2023 Patient encounter procedure Fidel IBARRA [facility] Start: 07-03-2023 End: 07-03-2023 ambulatory Ellen Crabtree Other [employer] Other Start: 07-03-2023 Telephone encounter Ellen Crabtree [facility] Start: 07-01-2023 End: 07-01-2023 ambulatory Fidel IBARRA Facility:[facility] Start: 06-19-2023 End: 06-19-2023 ambulatory Fidel IBARRA Facility:[facility] Start: 06-19-2023 End: 06-19-2023 Lab Drop off Fidel IBARRA [facility] Start: 06-19-2023 End: 06-19-2023 ambulatory Fidel IBARRA Facility:[facility] Start: 06-19-2023 End: 06-19-2023 Patient encounter procedure Fidel IBARRA [facility] Start: 06-16-2023 End: 06-16-2023 ambulatory Elleneliane Crabtree Other [employer] Other Start: 06-16-2023 Telephone encounter Elleneliane Crabtree [facility] Start: 06-11-2023 End: 06-11-2023 ambulatory Elleneliane Bordens Other [employer] Other Start: 06-11-2023 Telephone encounter Ellen Michis [facility] [place] Start: 05-26-2023 End: 05-26-2023 ambulatory Ellen Michis Other [employer] Other Start: 05-26-2023 Telephone encounter Ellen Michis [facility] [place] Start: 05-25-2023 End: 05-25-2023 Lab Drop off Fidel IBARRA [facility] Start: 05-25-2023 End: 05-25-2023 ambulatory Fidel IBARRA Facility:[facility] Start: 05-25-2023 End: 05-25-2023 Patient encounter procedure Fidel IBARRA [facility] Start: 05-19-2023 End: 05-19-2023 ambulatory Ellen Crabtree Other [employer] Other Start: 05-19-2023 Office outpatient vi sit 25 minutes Ellen Crabtree [facility] [place] Start: 04-27-2023 Telephone encounter Elleneliane Bordens [facility] [place] Start: 04-27-2023 End: 04-27-2023 ambulatory Fidel IBARRA [facility] [employer] Other Start: 04-27-2023 End: 04-27-2023 Patient encounter procedure Fidel IBARRA [facility] Start: 04-16-2023 End: 04-16-2023 ambulatory Ellen Crabtree Other [employer] Other Start: 04-16-2023 Telephone encounter [facility] Start: 03-20-2023 End: 03-20-2023 Patient encounter procedure Fidel IBARRA [facility] [employer] Start: 03-20-2023 End: 03-20-2023 Patient encounter procedure Fidel IBARRA [facility] Start: 03-19-2023 End: 03-19-2023 ambulatory Ellen Kuns Other [employer] Other Start: 03-19-2023 Telephone encounter Ellen Kuns [facility] [place] Start: 02-20-2023 End: 02-20-2023 Patient encounter procedure Fidel IBARRA [facility] Start: 02-17-2023 End: 02-17-2023 ambulatory Ellen Kuns Other [employer] Other Start: 02-17-2023 Telephone encounter Ellen Kuns [facility] [place] Start: 02-16-2023 End: 02-16-2023 ambulatory Ellen Kuns Other [employer] Other Start: 02-16-2023 Telephone encounter Ellen Kuns [facility] [place] Start: 02-11-2023 End: 02-11-2023 ambulatory Ellen Kuns Other [employer] Other Start: 02-11-2023 Telephone encounter Ellen Kuns [facility] [place] Start: 01-30-2023 End: 01-30-2023 Patient encounter procedure Fidel IBARRA [facility] Start: 01-24-2023 Encounter for preprocedural cardiovascular examination DR FIDEL IBARRA . [facility] Start: 01-24-2023 Encounter for preprocedural laboratory examination DR FIDEL IBARRA . [facility] Start: 01-22-2023 End: 01-22-[address] FIDEL IBARRA . Facility:[facility] Start: 01-20-2023 End: 01-21-[address] FIDEL IBARRA . Facility:[facility] Start: 01-20-2023 End: 01-21-2023 Encounter for preprocedural cardiovascular examination DR FIDEL IBARRA . Facility:[facility] Start: 01-14-2023 End: 01-14-2023 ambulatory Ellen Crabtree Other [employer] Other Start: 01-14-2023 Telephone encounter Ellen Bordens [facility] Start: 12-24-2022 End: 12-24-2022 Unlisted evaluation and management service Say Reyes APRN.RESIDENTIAL CHILD CARE COUNSELOR Work Phone: Urology Comment on above: NO SHOW (Primary Dx) Start: 12-18-2022 End: 12-18-2022 ambulatory MICHELL CRABTREE . Facility: Start: 12-08-2022 End: 12-08-2022 ambulatory Ellen Crabtree Other [employer] Other Start: 12-08-2022 Telephone encounter Ellen Bordens [facility] Start: 12-06-2022 ambulatory Zelda Saenz RN NURSE O N CALL Comment on above: Medication Problem Start: 12-01-2022 End: 12-01-2022 Evaluation and management of inpatient SUSIE LOYA Facility:[facility] Start: 11-20-2022 End: 12-06-2022 Evaluation and management of inpatient ELLEN BOOGIE CRABTREE Facility:[facility] Start: 11-19-2022 End: 11-19-2022 ambulatory Ellen Bordens Other [employer] Other Start: 11-19-2022 Telephone encounter Ellen Bordens [facility] Start: 11-17-2022 End: 11-17-2022 ambulatory Ellen Bordens Other [employer] Other Start: 11-17-2022 Telephone encounter [facility] Kuns [facility] Start: 11-14-2022 End: 11-14-2022 ambulatory Ellen Kuns Other [employer] Other Start: 11-14-2022 Telephone encounter [facility] Kuns [facility] Start: 11-11-2022 End: 11-11-2022 ambulatory Ellen Kuns Other [employer] Other Start: 11-11-2022 Office outpatient vi sit 25 minutes Ellen Kuns [facility] Start: 11-10-2022 End: 11-10-2022 ambulatory Ellen Kuns Other [employer] Other Start: 11-10-2022 Telephone encounter [facility] Kuns [facility] Start: 11-05-2022 End: 11-09-2022 Evaluation and management of inpatient DR ALTON MANCINI . Facility:[facility] Start: 10-08-2022 End: 10-08-[address] DOCTOR TIPTON Facility:[facility] Start: 09-04-2022 End: 09-04-2022 ambulatory Ellen Kuns Other [employer] Other Start: 09-04-2022 Telephone encounter Ellen Kuns [facility] Start: 09-02-2022 End: 09-02-2022 ambulatory Ellen Kuns Other [employer] Other Start: 09-02-2022 Office outpatient vi sit 25 minutes Ellen Kuns [facility] Start: 08-29-2022 End: 08-29-2022 ambulatory Ellen Kuns Other [employer] Other Start: 08-29-2022 Telephone encounter [facility]uns [facility] Start: 08-28-2022 End: 08-28-2022 ambulatory Ellen Kuns Other [employer] Other Start: 08-28-2022 Telephone encounter Ellen Kuns [facility] [place] Start: 06-17-2022 End: 06-17-2022 ambulatory Ellen Kuns Other [employer] Other Start: 06-17-2022 Telephone encounter Ellen Kuns [facility] [place] Start: 05-21-2022 End: 05-21-2022 ambulatory Ellen Kuns Other [employer] Other Start: 05-21-2022 Telephone encounter Ellen Kuns [facility] [place] Start: 04-08-2022 End: 04-08-2022 ambulatory Ellen Kuns Other [employer] Other Start: 04-08-2022 Telephone encounter [facility]uns [facility] Start: 04-03-2022 Telephone encounter Ellen R Ku ns Work Phone: [facility] 600 DO Work Phone: Start: 03-25-2022 End: 03-25-2022 ambulatory Ellen Kuns Other [employer] Other Start: 03-25-2022 Telephone encounter Ellen Kuns [facility] [place] Start: 03-18-2022 End: 03-18-2022 ambulatory Ellen Kuns Other [employer] Other Start: 03-18-2022 Telephone encounter Ellen Kuns [facility] [place] Start: 03-10-2022 End: 03-10-2022 ambulatory Ellen Kuns Other [employer] Other Start: 03-10-2022 Telephone encounter Ellen Michis [facility] Start: 02-07-2022 End: 02-18-2022 Evaluation and management of inpatient FRANK Lipscomb [facility] Start: 02-07-2022 End: 02-18-2022 Evaluation and management of inpatient Frank Lipscomb [facility] YBARRA Work Phone: [facility] 7K Comment on above: Lumbar stenosis with neurogenic claudication (Primary Dx) Start: 01-27-2022 End: 01-27-2022 ambulatory Ellen Michis Other [employer] Other Start: 01-27-2022 Encounter for other preprocedural examination Elleneliane Bordens [facility] Start: 01-27-2022 Office outpatient vi sit 25 minutes Ellen Bordens [facility] Start: 01-27-2022 Pre-procedure evalua tion check Ellen Crabtree Other [employer] Other Start: 01-23-2022 End: 01-24-2022 ambulatory SELJORGEN Ruel [facility] Start: 01-23-2022 End: 01-28-2022 ambulatory SELJORGEN Ruel [facility] Start: 01-20-2022 End: 01-20-2022 ambulatory Ellen Michis Other [employer] Other Start: 01-20-2022 Telephone encounter Ellen Michis [facility] Start: 01-13-2022 End: 01-13-2022 ambulatory Ellen Michis Other [employer] Other Start: 01-13-2022 Telephone encounter Ellen Kuns [facility] Start: 12-05-2021 End: 12-05-2021 ambulatory Ellen Michis Other [employer] Other Start: 12-05-2021 Office outpatient vi sit 25 minutes Elleneliane Crabtree [facility] Start: 12-03-2021 Split [facility] [place] Other [facility] Office Start: 11-19-2021 [facility] [employer] [place] Other [facility] Office Start: 11-11-2021 Telephone encounter Phani Henderson MD Work Phone: Pain Management Comment on above: Post Op Start: 10-23-2021 End: 10-23-2021 ambulatory Elleneliane Crabtree Other [employer] Other Start: 10-23-2021 Telephone encounter Elleneliane Bordens [facility] Start: 10-07-2021 End: 10-07-2021 ambulatory Ellen Michis Other [employer] Other Start: 10-07-2021 Telephone encounter Elleneliane Bordens [facility] Start: 09-30-2021 End: 09-30-2021 ambulatory Ellen Michis Other [employer] Other Start: 09-30-2021 Telephone encounter Ellen Michis [facility] Start: 09-27-2021 End: 09-27-2021 ambulatory Yifan Gama Other [employer] Other Start: 09-27-2021 Telephone encounter Yifan Gama [facility] Start: 09-08-2021 Chart Update Ellen Crabtree Work Phone: [facility] [employer] [address] [place] Work Phone: Start: 09-05-2021 Patient encounter procedure Ellen Crabtree Work Phone: [facility] [employer] [address] [place] Work Phone: Start: 09-03-2021 End: 09-03-2021 ambulatory Ellen Kuns Other [employer] Other Start: 09-03-2021 Telephone encounter Ellen Kuns [facility] Start: 08-27-2021 End: 08-27-2021 ambulatory Ellen Kuns Other [employer] Other Start: 08-27-2021 Office outpatient vi sit 25 minutes Ellen Kuns [facility] Start: 08-21-2021 End: 08-21-2021 ambulatory Ellen Kuns Other [employer] Other Start: 08-21-2021 Telephone encounter Ellen Kuns [facility] Start: 08-16-2021 Office consultation new/estab patient 80 min Ellen R Kuns Work Phone: [facility] [employer] [address] [place] Work Phone: Start: 08-16-2021 Patient encounter procedure Ellen R Kuns Work Phone: [facility] [employer] 250 DO Work Phone: Start: 08-16-2021 Telephone encounter Yifan [facility] Start: 08-06-2021 Office outpatient vi sit 15 minutes Ellen Kuns [facility] Start: 08-15-2020 End: 08-15-2020 Subsequent hospital visit by physician [facility] Joana Work Phone: Radiology Comment on above: Radiculopathy of lum bar region [M54.16] Start: 06-21-2020 End: 06-21-2020 Subsequent hospital visit by physician Xr [facility] Comment on above: 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] Start: 06-15-2020 End: 06-15-2020 Subsequent hospital visit by physician [facility] Joana Work Phone: Radiology Comment on above: Pain in thoracic spi ne [M54.6] Start: 12-29-2017 End: 12-31-2017 Evaluation and management of inpatient [facility] Start: 12-07-2017 Ambulatory [facility] Start: 07-01-2017 End: 07-02-2017 Evaluation and management of inpatient [facility] Start: 05-30-2016 End: 06-16-2016 Ambulatory PROVIDER UNKNOWN Facility:[facility] Procedures Date Procedure Procedure Detail Performing Clinician Start: 04-11-2025 SEGMENTAL BLOOD PRESSURE Heidy Marin MD Work Phone: Start: 02-28-2025 Us abdominal aorta r eal time screen study aaa Heidy Marin MD Work Phone: Start: 02-15-2025 CT of abdomen and pe lvis without contrast Ellen Kuns DO Work Phone: Start: 12-13-2024 Urine culture Ellen Michi s DO Work Phone: Start: 09-27-2024 CT cervical spine wi thout contrast Ellen Kuns DO Work Phone: Start: 09-27-2024 CT of facial bones w ithout contrast Ellen Kuns DO Work Phone: Start: 09-27-2024 CT of head without contrast Ellen Kuns DO Work Phone: Start: 08-23-2024 Adult depression scr eening assessment Samira Bowden MD Work Phone: Start: 04-23-2024 Bacteria identified in Urine by Culture Start: 04-23-2024 Blood Culture 1 Start: 04-23-2024 Blood Culture 2 Start: 02-11-2024 Colonoscopy DO Ellen K uns Work Phone: Start: 01-06-2024 Bacteria identified in Urine by Culture Start: 11-16-2023 Adult depression scr eening assessment Samira Bowden MD Work Phone: Start: 01-22-2023 Insertion of suprapu bic catheter using ultrasound guidance Fidel IBARRA Start: 12-03-2022 Echocardiography ELLEN KUNS Start: 08-11-2022 Adult depression scr eening assessment Samira Bowden MD Work Phone: Start: 02-18-2022 Gluc [...] Work Phone: Start: 02-15-2022 Anion gap [Moles/Vol] John Parra MD Work Phone: Start: 02-15-2022 Basic [...] d ev cleared fda spec home use Tcuker Robbins MD Work Phone: Start: 02-13-2022 Gluc [...] 02-09-2022 End: 02-09-2022 Cortisol total Marielena Ramsey [employer] ENGINE[employer] - RESIDENTIAL CHILD CARE COUNSELOR Work Phone: Start: 02-09-2022 Gluc bld gluc mntr d ev cleared fda spec home use Frank Reddy MD Work Phone: Start: 02-09-2022 Cortisol total Marcos Jorgensen MD Work Phone: Start: 02-09-2022 Blood count complete auto&auto difrntl wbc Marielena Ramsey EMBEDDED FIRMWARE ENGINEER - RESIDENTIAL CHILD CARE COUNSELOR Work Phone: Start: 02-09-2022 Gluc bld gluc mntr d ev cleared fda spec home use Frank Reddy MD Work Phone: Start: 02-08-2022 Gluc bld gluc mntr d ev cleared fda spec home use Frank Reddy MD Work Phone: Start: 02-08-2022 Anion gap [Moles/Vol] J coy Ramsey EMBEDDED FIRMWARE ENGINEER - RESIDENTIAL CHILD CARE COUNSELOR Work Phone: Start: 02-08-2022 End: 02-08-2022 Basic metabolic panel calcium total Marcos Jorgensen MD Work Phone: Start: 02-08-2022 GLOMERULAR FILTRATIO N RATE, ESTIMATED Marielena Mustafa EMBEDDED FIRMWARE ENGINEER - RESIDENTIAL CHILD CARE COUNSELOR Work Phone: Start: 02-08-2022 SCAN OF BLOOD SMEAR Ricardo Mustafa EMBEDDED FIRMWARE ENGINEER - RESIDENTIAL CHILD CARE COUNSELOR Work Phone: Start: 02-08-2022 Gluc bld gluc mntr d ev cleared fda spec home use Frank Reddy MD Work Phone: Start: 02-08-2022 Gluc bld gluc mntr d ev cleared fda spec home use Frank Reddy MD Work Phone: Start: 02-08-2022 Radiologic exam ches t single view Marielena Mustafa EMBEDDED FIRMWARE ENGINEER - RESIDENTIAL CHILD CARE COUNSELOR Work Phone: Start: 02-08-2022 Blood count hemoglobin Marielena Mustafa APRN - KAUSHAL Work Phone: Start: 02-08-2022 Ecg routine ecg w/le ast 12 lds i&r only Marielena Mustafa EMBEDDED FIRMWARE ENGINEER - RESIDENTIAL CHILD CARE COUNSELOR Work Phone: Start: 02-08-2022 Gluc bld [...] Work Phone: Comment on above: Performed at [facility] [address] [place] [address] Start: 02-07-2022 Gluc bld gluc mntr d [...] spine w/ o contrast material Oumou Mcqueen APRN.CNP Work Phone: Start: 04-24-2020 Antibody screen Start: 10-18-2019 Antibody screen Start: 03-08-2019 Procedure on prostate Sabrina IBARRA Start: 03-08-2019 Transurethral prostatectomy Fidel IBARRA [...] Cystoscopy Fidel STILL Start: 10-28-2017 Urodynamic studies Patr kenney IBARRA Start: 08-11-2016 Colonoscopy Phani daniels MD Work Phone: Arthroplasty of knee Ellen R Kuns Work Phone: Comment on above: x 3; Arthroplasty of knee Fidel IBARRA Bypass of stomach Fidel JEWEL CHEKO Colonoscopy Fidel IBARRA Esophagogastrostomy, antesternal or antethoracic [...] Td Vaccines (3 - Td or Tdap) [facility] Start: 11-15-2028 DTaP/Tdap/Td vaccine (3 - Td or Tdap) DTaP/Tdap/Td vaccine (3 - Td or Tdap) [facility] Start: 11-15-2028 Urine microalbumin profile DTAP,TDAP,TD (3 - Td or Tdap) [facility] Start: 08-11-2026 Colonoscopy COLONOSCOPY [facility] Start: 08-11-2026 COLORECTAL CANCER SCREENING COLORECTAL CANCER SCREENING [facility] Start: 03-16-2026 Adult BMI Screening Adult BMI Screen ing [facility] Start: 03-16-2026 Tobacco Screening Tobacco Screening [facility] Start: 08-23-2025 Adult BMI Follow Up Plan Adult BMI Follow Up Plan [facility] Start: 08-23-2025 Adult BMI Screening Adult BMI Screen ing [facility] Start: 08-23-2025 Depression Screening Depression Scre ening [facility] Start: 08-23-2025 Tobacco Screening Tobacco Screening [facility] Start: 07-26-2025 End: 07-26-2025 Patient encounter procedure 07/26/2025 10:00 AM EDT Office Visit [facility] Department of [address] [place] [id number] Lyn Banks MD [address] [place] [address] [address] [place] [address] [facility] Department of [facility] Start: 06-19-2025 Influenza vaccination Influenza Vacc ine [facility] Start: 04-25-2025 End: 04-25-2025 Patient encounter procedure 04/25/2025 3:00 PM EDT Office Visit [facility] Department of [address] [place] [id number] [place] [address] [place] [address], [facility] [address] [place] [address] [facility], [facility] Department of [facility] Start: 03-29-2025 End: 03-29-2025 Patient encounter procedure [facility] Start: 03-17-2025 Adult BMI Screening Adult BMI Screen ing [facility] Start: 03-16-2025 End: 03-16-2026 US.doppler Extremity arteries - bilateral for physiologic artery study Vas art doppler lwr bilat mult lev/PVR Vascular Ultrasound Routine Encounter for abdominal aortic aneurysm (AAA) screening Open wound of left great toe, subsequent encounter Critical limb ischemia of left lower extremity with gangrene ([facility]) Expected: 03/16/2025, Expires: 03/16/2026 [employer] Work Phone: Comment on above: Expected: 03/16/2025 , Expires: 03/16/2026 Start: 03-16-2025 End: 03-16-2025 Patient encounter procedure [facility] Start: 03-14-2025 End: 03-14-2026 CT Head WO contrast CT brain without contrast Imaging Routine Cerebellar dysmetria Expected: 03/14/2025, Expires: 03/14/2026 [facility] Comment on above: Expected: 03/14/2025 , Expires: 03/14/2026 Start: 03-14-2025 End: 03-14-2026 RF videography Hypopharynx and Esophagus Views Fluoroscopy swallow motility function Imaging Routine Dysphagia, unspecified type Globus sensation Expected: 03/14/2025, Expires: 03/14/2026 [employer] Work Phone: Comment on above: Expected: 03/14/2025 , Expires: 03/14/2026 Start: 01-27-2025 Adult BMI Screening Adult BMI Screen ing [facility] Start: 01-27-2025 Tobacco Screening Tobacco Screening [facility] Start: 01-27-2025 End: 07-29-2025 US.doppler Aorta and Iliac artery - bilateral Vas aorta/iliac duplex complete Vascular Ultrasound Routine Encounter for screening for abdominal aortic aneurysm (AAA) in patient 50 years of age or older with history of smoking Abdominal aortic aneurysm dissection ([facility] [facility] Expected: 01/27/2025 (Approximate), Expires: 07/29/2025 [facility] Work Phone: Comment on above: Expected: 01/27/2025 (Approximate), Expires: 07/29/2025 Start: 01-23-2025 Diabetes screen Diabetes screen [facility] Start: 12-13-2024 Urine culture [facility] Start: 12-13-2024 Bacteria identified in Urine by Culture Urine Culture [facility] Start: 11-16-2024 Depression Screening Depression Scre ening [facility] Start: 11-16-2024 Tobacco Screening Tobacco Screening [facility] Start: 09-06-2024 End: 09-06-2024 Telemedicine consultation with patient 09/06/2024 12:30 PM EST Telemedicine [facility] [address] [place] [address] [phone] Samira Bowden MD [address] [place] [address], [address], [address], [address] [place] [address] [facility] Start: 08-23-2024 End: 08-23-2024 Patient encounter procedure 08/23/2024 11:30 AM EST Office Visit [facility] [address] [place] [address] [phone] Samira Bowden MD [address] [place] [address], [address], [address] [place] [address] [facility] Start: 07-02-2024 Adult BMI Screening Adult BMI Screen ing [facility] Start: 07-02-2024 Tobacco Screening Tobacco Screening [facility] Start: 06-19-2024 COVID-19 Vaccine ( season) COVID-19 Vaccine () [facility] Start: 06-19-2024 COVID-19 Vaccine ( season) COVID-19 Vaccine ( season) [facility] Start: 06-19-2024 Influenza vaccination Influenza Vacc ine [facility] Start: 04-26-2024 ambulatory Ambulatory Facility:[facility] Start: 03-17-2024 End: 03-17-2024 Patient encounter procedure 03/17/2024 11:30 AM EDT Office Visit [facility] [address] [place] [address] Heidy Marin MD [address], [address] [address] [facility] Start: 02-25-2024 End: 02-25-2024 Patient encounter procedure 02/25/2024 8:40 AM EDT Office Visit [facility] [address] [place] [address] Heidy Marin MD [address], [address] [address] [facility] Start: 02-11-2024 [facility] Start: 01-28-2024 End: 01-27-2025 .doppler Extremity arteries - bilateral for physiologic artery study Vas art doppler lwr bilat mult lev/PVR Vascular Ultrasound Routine Critical limb ischemia of both lower extremities with gangrene ([facility]) Expected: 01/28/2024, Expires: 01/27/2025 [facility] Comment on above: Expected: 01/28/2024 , Expires: 01/27/2025 Start: 01-28-2024 End: 01-28-2024 Patient encounter procedure 01/28/2024 9:20 AM EDT Office Visit [facility] [address] [place] [address] Heidy Marin MD [address], [facility] [address] [place] [address] [facility] Start: 01-14-2024 End: 01-14-2024 Patient encounter procedure 01/14/2024 9:50 AM EDT Office Visit [facility] [address] [place] [address] Sergio Anguiano MD [address], [address] [phone] [facility] Start: 11-29-2023 Hepatitis B surface antibody level LDL CHOLESTEROL [facility] Start: 11-16-2023 End: 11-16-2023 Patient encounter procedure 11/16/2023 1:00 PM EST Office Visit [facility] [address] [place] [phone] Reena Cervantes, EMBEDDED FIRMWARE ENGINEER-RESIDENTIAL CHILD CARE COUNSELOR [address] [place] [address] [facility] Start: 2023 Fall Risk Screening Fall Risk Screen ing [facility] Start: 2023 PNEUMOCOCCAL (3 - PP SV23 if available, else PCV20) PNEUMOCOCCAL (3 - PPSV23 if available, else PCV20) [facility] Start: 2023 PNEUMOCOCCAL (3 - PP SV23 or PCV20) PNEUMOCOCCAL (3 - PPSV23 or PCV20) [facility] Start: 2023 Pneumococcal 0-64 ye ars Vaccine (3 - PPSV23 or PCV20) Pneumococcal 0-64 years Vaccine (3 - PPSV23 or PCV20) [facility] Start: 08-11-2023 Adult BMI Follow Up Plan Adult BMI Follow Up Plan [facility] Start: 08-11-2023 Depression Screening Depression Scre ening [facility] Start: 06-19-2023 COVID-19 Vaccine ( season) COVID-19 Vaccine ( season) [facility] Start: 06-19-2023 Influenza vaccination [facility] Start: 10-19-2022 DEPRESSION ASSESSMENT DEPRESSION ASS ESSMENT [facility] Start: 01-01-2022 COVID-19 VACCINE (5 - Booster for Moderna series) COVID-19 VACCINE (5 - Booster for Moderna series) [facility] Start: 01-01-2022 COVID-19 VACCINE (6 - Moderna series) COVID-19 VACCINE (6 - Moderna series) [facility] Start: 10-25-2021 Adult depression screening assessment DEPRESSION SCREENING [facility] Start: 10-24-2021 FUV, Provider: Ren Watson, Status: Pen, Time: 10:10 AM FUV, Provider: Ren Watson, Status: Pen, Time: 10:10 AM [facility] [place] Work Phone: Start: 09-05-2021 STRESS NUC, Provider : BRIGITTE HHVI NUCLEAR 01,[id number], Status: Pen, Time: 12:00 PM STRESS NUC, Provider: BRIGITTE HHVI NUCLEAR 01,[id number], Status: Pen, Time: 12:00 PM [facility] Work Phone: Start: 10-25-2020 Hemoglobin A1c/Hemoglobin.total in Blood HBA1C [facility] Start: 08-10-2020 ANNUAL PCP TEAM LENS INSERTER MARYAM DISEASE VISIT ANNUAL PCP TEAM CHRONIC DISEASE VISIT [facility] Start: 03-16-2019 Administration of varicella zoster vaccine Zoster (Shingles) Vaccine (2 of 2) [facility] Start: 03-16-2019 Shingles vaccine (2 of 2) Shingles vaccine (2 of 2) [facility] Start: 03-16-2019 SHINGRIX VACCINE (2 of 2) SHINGRIX VACCINE (2 of 2) [facility] Start: 04-27-2018 3 comp foot exam completed DIABETIC FOOT EXAM [facility] Start: 2013 Influenza vaccination LUNG CANCER [facility] Start: 2013 PROSTATE CANCER SCREENING DISCUSSION PROSTATE CANCER SCREENING DISCUSSION [facility] Start: 2008 Influenza vaccination LUNG CANCER [facility] Start: 2008 Screening for malign ant neoplasm of lung Low dose CT lung screening [facility] Start: 2003 COLOGUARD (FIT-DNA) COLOGUARD (FIT-D NA) [facility] Start: [address] COLONOGRAPHY [facility] Start: 2003 FECAL OCCULT BLOOD FECAL OCCULT BLOO D [facility] Start: 2003 Screening for malign ant neoplasm of colon [facility] Start: 2003 SIGMOIDOSCOPY SIGMOIDOSCOPY [facility] Start: 1988 Zoledronic acid therapy ALPHA- 1 ANTITRYPSIN DEFICIENCY SCREENING [facility] Start: 1976 Adult BMI Follow Up Plan Adult BMI Follow Up Plan [facility] Start: 1976 BP CONTROLLED (<130/80) BP CONTROLLE D (<130/80) [facility] Start: 1976 Diabetic foot examination Diabetic Foot Exam [facility] Start: 1976 Hepatitis B surface antibody level LDL CHOLESTEROL [facility] Start: 1976 HEPATITIS C SCREENING HEPATITIS C [facility] Start: 1976 Hepatitis C screening Hepatitis C [facility] Start: 1976 HIV SCREENING HIV SCREENING [facility] Start: 1976 SPIROMETRY SPIROMETRY [facility] Start: 1973 HIV screening HIV screen [facility] Start: 1970 Depression Screen Depression Screen [facility] Start: 1968 Hepatitis B screening URINE ALBUMIN:CREATININE RATIO [facility] Start: 1968 Hepatitis C antibody , confirmatory test DILATED RETINAL EXAM [facility] Start: 1968 Lipid panel Lipids [facility] Start: 1958 Annual Wellness Visi t (AWV) Annual Wellness Visit (AWV) [facility] Start: 1958 Glaucoma screening Diabetic Op hthalmology Exam [facility] Start: 1958 Medicare Annual Well ness Visit Medicare Annual Wellness Visit [facility] Start: 1958 Tobacco Counseling Tobacco Counselin g [facility] Comprehensive metabo lic 2000 panel - Serum or Plasma [facility] CT Abdomen and Pelvi s W contrast IV [facility] End: 08-23-2025 EMG With NCV EMG With NCV Neurology Routine Spinal stenosis of lumbar region with neurogenic claudication 1 Occurrences starting 08/23/2024 until 08/23/2025 [employer] Work Phone: Comment on above: 1 Occurrences starti ng 08/23/2024 until 08/23/2025 Glucose [Mass/volume ] in Serum or Plasma [facility] Work Phone: Comment on above: 4X Daily (AC & HS) u ntil discontinued starting 02/11/2022, 27 completed As Needed until disc ontinued starting 02/11/2022 Glucose measurement estimated from glycated hemoglobin [facility] Hemoglobin A1c/Hemoglobin.total in Blood [facility] Home BIPAP or CPAP Home BIPAP or CPAP Respiratory Care Routine QHS until discontinued starting 02/16/2022 [facility]: Comment on above: QHS until discontinu ed starting 02/16/2022 Oxygen therapy [[facility] Data Set] Initiate Oxygen Therapy Protocol Respiratory Care Routine As Needed until discontinued starting 02/07/2022 [employer] Phone: Comment on above: As Needed until disc ontinued starting 02/07/2022 Patient Education [facility] Work Phone: Patient referral [facility] Work Phone: [facility] Immunizations Immunization Date Immunization Notes Care Provider Titi infante 11-21-2024 influenza, high dose seasonal, preservative-free Ellen Kuns DO Work Phone: [facility] 11-21-2024 influenza virus vaccine, unspecified formulation Lyn Banks MD Work Phone: [facility] [facility] 11-10-2023 influenza, high dose seasonal, preservative-free Ellen Kuns Other [facility] 11-10-2023 influenza virus vaccine, unspecified formulation [facility] 10-21-2022 pneumococcal conjuga te vaccine, 13 valent Fidel IBARRA [facility] 09-18-2022 influenza virus vaccine, unspecified formulation Fidel IBARRA [facility] 09-02-2022 influenza, injectabl e, quadrivalent, contains preservative Ellen Kuns Other [facility] 09-02-2022 influenza virus vaccine, unspecified formulation Fidel IBARRA [facility] 09-02-2022 influenza, injectabl e, quadrivalent, preservative free [facility] 11-06-2021 COVID-19, Moderna, 100mcg/0.5ml [employer] 10-15-2021 influenza virus vaccine, unspecified formulation Fidel IBARRA [facility] 10-15-2021 Influenza, injectabl e, Madin Ninfa Canine Kidney, preservative free, quadrivalent Ellen R Leyda Work Phone: [facility] 10-15-2021 Moderna COVID-19 Vaccine 100 MCG/0.5ML Intramuscular Suspension Ellen R Kuns Work Phone: [facility] 01-30-2021 COVID-19, Moderna, 100mcg/0.5ml [employer] 01-09-2021 COVID-19 Vaccine Moderna - Documentation Purposes Only Ellen Kuns Other [facility] 01-02-2021 COVID-19, Moderna, 100mcg/0.5ml [employer] 12-13-2020 COVID-19 Vaccine Moderna - Documentation Purposes Only Ellen Kuns Other [facility] 07-17-2020 influenza virus vaccine, unspecified formulation Fidel IBARRA [facility] 07-17-2020 influenza, injectabl e, quadrivalent, contains preservative Ellen Kuns Other [facility] 07-17-2020 influenza, injectabl e, quadrivalent, preservative free [facility] 04-12-2020 Toradol per 15 mg Ellen Kuns Other [employer] Other 08-24-2019 influenza virus vaccine, unspecified formulation Fidelmunir IBARRA [facility] 08-24-2019 influenza, high dose seasonal, preservative-free Ellen Kuns Other [facility] 01-19-2019 zoster vaccine recombinant Ellen Kuns Other [facility] 01-19-2019 zoster vaccine, unspecified formulation Samira Bowden MD Work Phone: [employer] 11-15-2018 pneumococcal conjuga te vaccine, 13 valent Phani Henderson MD Work Phone: [facility] 11-15-2018 tetanus toxoid, redu whitney diphtheria toxoid, and acellular pertussis vaccine, adsorbed Phani Henderson MD Work Phone: [facility] 07-07-2018 influenza virus vaccine, unspecified formulation Fidelmunir IBARRA [facility] 07-07-2018 influenza, injectabl e, quadrivalent, contains preservative Ellen Kuns Other [facility] 07-07-2018 influenza, injectabl e, quadrivalent, preservative free [facility] 05-06-2018 Toradol per 15 mg Ellen Kuns Other [employer] Other 10-03-2017 Toradol per 15 mg Ellen Kuns Other [employer] Other 09-17-2017 Toradol per 15 mg Ellen Kuns Other [employer] Other 07-01-2017 influenza virus vaccine, unspecified formulation Fidel IBARRA [facility] 07-01-2017 influenza, injectabl e, quadrivalent, preservative free Ellen R Kuns Work Phone: [facility] 03-24-2017 Toradol per 15 mg Ellen Kuns Other [employer] Other 01-29-2017 Toradol per 15 mg Ellen Kuns Other [employer] Other 12-25-2016 Toradol per 15 mg Ellen Kuns Other [employer] Other 08-12-2016 influenza virus vaccine, unspecified formulation Fidel IBARRA [facility] 08-12-2016 influenza, high dose seasonal, preservative-free Ellen R Kuns Work Phone: [facility] 08-12-2016 influenza, injectabl e, quadrivalent, preservative free [facility] 08-12-2016 Toradol per 15 mg Ellen Kuns Other [employer] Other 08-12-2016 influenza, injectabl e, quadrivalent, contains preservative Ellen Kuns Other [employer] Other 01-17-2016 Toradol per 15 mg Ellen Kuns Other [employer] Other 10-22-2015 tetanus toxoid, redu whitney diphtheria toxoid, and acellular pertussis vaccine, adsorbed Ellen Kuns Other [facility] 10-22-2015 Toradol per 15 mg Ellen Kuns Other [employer] Other 07-23-2015 influenza virus vaccine, unspecified formulation Fidel IBARRA [facility] 07-23-2015 influenza, injectabl e, quadrivalent, preservative free Ellen R Kuns Work Phone: [facility] 07-23-2015 influenza, injectabl e, quadrivalent, contains preservative Ellen Kuns Other [employer] Other 10-26-2014 influenza, injectabl e, quadrivalent, preservative free [facility] 10-26-2014 Toradol per 15 mg Ellen Kuns Other [employer] Other 10-26-2014 influenza, injectabl e, quadrivalent, contains preservative Ellen Kuns Other [employer] Other 07-11-2014 Toradol per 15 mg Ellen Kuns Other [employer] Other 06-27-2014 Toradol per 15 mg Ellen Kuns Other [employer] Other 04-20-2014 Toradol per 15 mg Ellen Kuns Other [employer] Other 01-18-2013 Toradol per 15 mg Ellen Kuns Other [employer] Other 09-15-2012 influenza virus vaccine, split virus (incl. purified surface antigen) Ellen Kuns Other [employer] Other 09-15-2012 influenza virus vaccine, unspecified formulation [facility] 07-15-2010 influenza virus vaccine, unspecified formulation Phani Henderson MD Work Phone: [facility] 08-24-2009 novel [id number], preservative-free, injectable Ellen Crabtree Work Phone: [facility] 08-16-2002 hepatitis B vaccine, adult dosage Ellen Crabtree Work Phone: [facility] 01-27-2002 hepatitis B vaccine, adult dosage Ellen Crabtree Work Phone: [facility] 08-13-1995 pneumococcal polysaccharide vaccine, 23 valent Ellen Crabtree Other [facility] Payers Date Payer Category Payer Self-pay [id number] 2023 Commercial Indemnity [facility] [id number] 2023 Private Health Insurance [id number] 2023 Unknown [id number] 2021 Medicare AETNA MEDICARE A ETNA MEDICARE HMO [id number] 2021-Present [phone] [address] [place] [address] O [id number]. [id number] 2019 Medicare [id number]. 1.13.159.2. [id number] 2004 Unknown 1959 Medicare [id number] 2.16.840.1.683082.3.441 1959 Medicare [id number] 1959 Unknown [id number] 1958 Unknown [id number] 2.16.840.1.243575.3.579.2. 93 1958 Unknown [id number] 2.16.840.1.021472.3.579.2. 93 1958 Unknown [id number] 2.16.840.1.477029.3.579.2. 93 1958 Unknown [id number] 2.16.840.1.547624.3.579.2. 593 1958 Unknown [id number] 2.16.840.1.269460.3.579.2. 593 1958 Unknown [id number] 2.16.840.1.772495.3.579.2. 593 1958 Unknown [id number] 2.16.840.1.641269.3.579.2. 593 1958 Unknown [id number] 2.16.840.1.654444.3.579.2. 593 1958 Unknown [id number] 2.16.840.1.342960.3.579.2. 727 1958 Unknown [id number] 2.16.840.1.724718.3.579.2. 727 1958 Unknown [id number] 2.16.840.1.995163.3.579.2. 727 1958 Unknown [id number] 2.16.840.1.734554.3.579.2. 727 1958 Unknown [id number] 2.16.840.1.975962.3.579.2. 727 1958 Unknown [id number] 2.16.840.1.464252.3.579.2. 72 1958 Unknown [id number] 2.16.840.1.772288.3.579.2 1958 Unknown [id number] 2.16.840.1.298944.3.579.2. 1958 Unknown [id number] 2.16.840.1.342864.3.579.2 1958 Unknown [id number] 2.16.840.1.703575.3.579.2 1958 Unknown [id number] 2.16.840.1.419051.3.579.2 1958 Unknown [id number] 2.16.840.1.105291.3.579.2 1958 Unknown [id number] 2.16.840.1.715933.3.579.2 1958 Unknown [id number] 2.16.840.1.161721.3.579.2 1958 Unknown [id number] 2.16.840.1.464490.3.579.2 1958 Unknown [id number] 2.16.840.1.710574.3.579.2 1958 Unknown [id number] 2.16.840.1.750911.3.579.2 1958 Unknown [id number] 2.16.840.1.936274.3.579.2 1958 Unknown [id number] 2.16.840.1.356200.3.579.2 1958 Unknown [id number] 2.16.840.1.035918.3.579.2 1958 Unknown [id number] 2.16.840.1.500223.3.579.2. 1958 Unknown [id number] 2.16.840.1.035298.3.579.2 1958 Unknown [id number] 2.16.840.1.579153.3.579.2. 1958 Unknown [id number] 2.16.840.1.866492.3.579.2 1958 Unknown [id number] 2.16.840.1.329063.3.579.2. 1958 Unknown [id number] 2.16.840.1.556727.3.579.2 1958 Unknown [id number] 2.16.840.1.448780.3.579.2 1958 Unknown [id number] 2.16.840.1.576742.3.579.2 1958 Unknown [id number] 2.16.840.1.211227.3.579.2 1958 Unknown [id number] 2.16.840.1.485368.3.579.2 1958 Unknown [id number] 2.16.840.1.001388.3.579.2 1958 Unknown [id number] 2.16.840.1.267833.3.579.2 1958 Unknown [id number] 2.16.840.1.661677.3.579.2 1958 Unknown [id number] 2.16.840.1.446631.3.579.2 1958 Unknown [id number] 2.16.840.1.962897.3.579.2 1958 Unknown [id number] 2.16.840.1.474050.3.579.2. 727 1958 Unknown [id number] 2.16.840.1.461046.3.579.2. 727 1958 Unknown [id number] 2.16.840.1.655951.3.579.2. 727 1958 Unknown [id number] 2.16.840.1.033216.3.579.2. 1286 1958 Unknown [id number] 2.16.840.1.973511.3.579.2. 1286 1958 Unknown [id number] 2.16.840.1.119639.3.579.2. 128 1958 Unknown [id number] 2.16.840.1.442304.3.579.2. 128 1958 Unknown [id number] 2.16.840.1.167364.3.579.2. 1286 1958 Unknown [id number] 2.16.840.1.644954.3.579.2. 72 1958 Unknown [id number] 2.16.840.1.903460.3.579.2. 72 1958 Unknown [id number] 2.16.840.1.410593.3.579.2. 72 1958 Unknown [id number] 2.16.840.1.167346.3.579.2. 72 1958 Unknown [id number] 2.16.840.1.214607.3.579.2. 72 1958 Unknown [id number] 2.16.840.1.318238.3.579.2. 72 1958 Unknown [id number] 2.16.840.1.949925.3.579.2. 727 1958 Unknown [id number] 2.16.840.1.786404.3.579.2. 72 Unknown [facility] [id number] Unknown [id number] 2.16.840.1.072334.3.579.2. 531 Unknown [id number] 2.16.840.1.677237.3.579.2. 531 Unknown [id number] 2.16840.1.105688.3.579.2. 531 Unknown [id number] 2.16.840.1.484218.3.579.2. 531 Social History Date Type Detail Facility Start: 04-15-2017 End: 11-08-2020 No alcohol use No alcohol use [facility] Comment on above: Coffee 3 cups daily; 6 ciggs daily; Start: Smoker [employer] Start: 04-15-2017 End: 01-28-2024 Tobacco smoking status PAIS Smokes tobacco daily [facility] Start: 12-07-1982 History of tobacco use Cigarette Smo ker [facility] Start: 04-15-2017 End: 03-16-2025 Tobacco use and exposure Smokeless tobacco non-user [facility] Start: 05-29-2020 End: 10-10-2021 Alcohol intake Current non-drinker of alcohol (finding) [facility] Start: 05-04-2020 End: 11-25-2022 History SDOH Financial 4 [facility] Start: 05-04-2020 End: 11-25-2022 History SDOH Food Worry 1 [facility] Start: 05-04-2020 End: 11-25-2022 History SDOH Transport Med 2 [facility] Start: 06-21-2020 Tobacco Comment currently 8 ci garettes a day [facility] Start: 1960 Sex Assigned At Not on file [facility] Start: 05-22-2020 End: 02-07-2022 Exposure to SARS-CoV-2 (event) Not sure [facility] Start: 02-09-2022 Alcohol intake Lifetime non-d margarita (finding) [employer] Work Phone: Start: 05-12-2019 End: 11-08-2020 Sex Assigned At [facility] Start: 01-16-2023 End: 09-27-2024 Tobacco smoking status Ex-smoker (finding) [facility] Tobacco smoking status Never [facility] How hard is it for y ou to pay for the very basics like food, housing, medical care, and heating Not very hard [facility] (I/We) worried heriberto er (my/our) food would run out before (I/we) got money to buy more. Never true [facility] Start: 04-24-2020 Tobacco Comment currently 1/2 pack day since 01/2020 [facility] Start: 05-05-2020 End: 06-04-2020 Exposure to SARS-CoV-2 (event) Unable to assess [facility] Start: 1960 Sex Assigned At Male F [facility] History of tobacco use Current smoker [facility] Start: 08-23-2024 End: 03-16-2025 Alcoholic beverage intake [facility] Start: 02-03-2021 End: 01-28-2024 Tobacco Comment [facility] Start: 01-30-2010 End: 11-08-2020 Sex Male (finding) [facility] Tobacco smoking stat [facility] Tobacco smoking consumption unknown [facility] Sexual Orientation [facility] Medical Equipment Procedure Code Equipment Code Equipment Origin al Text Equipment Identifier Dates Restrictor 24mm Medium Morton Cement Revision Plug Hip - [id number] Start: 04-27-2017 Cement Simplex P Tobramycin Bone Full Dose Radiopaque Preblend Sterile - [id number] Start: 04-27-2017 Restrictor 30mm Large Morton Cement Revision Plug Hip - [id number] Start: 04-27-2017 Cement Simplex P Speedset Bone Radiopaque Sterile - [id number] Start: 12-29-2017 Hvy-Cm-L-Kind Implant - [id number] Start: 06-05-2016 Comment on above: Description: PEDRO WHELAN N300 LEAD ANCHOR KIT Head Global Unit e 52mm Standard 18mm Humeral - [id number] Start: 12-29-2017 Pedro Surgical L ead Kit [id number] Start: 03-16-2018 Head V40 28mm -2 .7mm Offset Taper Biolox Delta Femoral Hip - [id number] Start: 11-08-2019 Liner 46mm F Dylon r Acetabular Modular Dual Mobility Primary Hip - [id number] Start: 11-08-2019 Insert Adm Mobil e Bearing Hip [employer] 52mm 28mm 0d X3 8.9mm Acetabular - [id number] Start: 11-08-2019 Insert Adm Mobil e Bearing Hip [employer] 52mm 28mm 0d X3 8.9mm Acetabular - [id number] Start: 05-03-2020 Head V40 28mm +4 mm Offset Taper Biolox Delta Femoral Hip - [id number] Start: 05-03-2020 Liner 46mm F Dylon r Acetabular Modular Dual Mobility Primary Hip - [id number] Start: 05-03-2020 Stem Triathlon 1 2mm Cocr 100mm Femoral Cemented Total Stabilized Knee - [id number] Start: 04-27-2017 Stem Triathlon 1 5mm Cocr 50mm Femoral Cemented Total Stabilize Knee - [id number] Start: 04-27-2017 Component Triath lisy 7 Cocr Femoral Total Stabilize Knee Left - [id number] Start: 04-27-2017 Augment Triathlo n 7 5mm Femoral Total Stabilize Knee Posterior - [id number] Start: 04-27-2017 Augment Triathlo n 7 5mm Femoral Total Stabilize Knee Left - [id number] Start: 04-27-2017 Augment Triathlo n 7 5mm Femoral Total Stabilize Knee Left - [id number] Start: 04-27-2017 Augment Triathlo n 6 10mm Tibial Total Stabilize Right Medial Left Lateral - [id number] Start: 04-27-2017 Baseplate Triath lisy 6 Morton Cocr Tibial Total Stabilize Cemented Knee - [id number] Start: 04-27-2017 Augment Triathlo n 6 10mm Tibial Total Stabilize Left Medial Right Lateral - [id number] Start: 04-27-2017 Insert Triathlon 6 X3 16mm Tibial Total Stabilize Plus Knee - [id number] Start: 04-27-2017 Component Triath lisy 7 Pa Femoral Cruciate Retain Bead Knee Right - [id number] Start: 07-01-2017 Insert Triathlon 6 X3 13mm Tibial Condylar Stabilized Knee - [id number] Start: 07-01-2017 Baseplate Triath lisy 6 Tritanium [id number] Tibial 4 Cruciform Peg Keel Knee - [id number] Start: 07-01-2017 Component Tritan ium 35mm Metal 10mm Patellar Asymmetric Knee - [id number] Start: 07-01-2017 Component Triath lisy 35mm 10mm Patellar Asymmetric Knee - [id number] Start: 04-27-2017 Head 48mm 7mm Humeral [place] Peg Left Glenoid - [id number] Start: 12-29-2017 Stem Global Ap 1 2mm Porocoat 137mm Humeral Arthroplasty System Shoulder - [id number] Start: 12-29-2017 Assembly Global Ap 135d Taper Fix Shoulder Arthroplasty System - [id number] Start: 12-29-2017 Augment Triath T ib Cone Sz A - [id number] Start: 04-27-2017 Stem Accolade Ii 7 127d Femoral - [id number] Start: 11-08-2019 Shell Trident Ii 56mm F Tritanium Acetabular 5 Screw Hole Cluster Sterile - [id number] Start: 11-08-2019 Stem Accolade Ii 7 127d Femoral - [id number] Start: 05-03-2020 Shell Trident Ii 56mm F Tritanium Acetabular 5 Screw Hole Cluster Sterile - [id number] Start: 05-03-2020 Lead 50cm Nevro - [id number] Start: 05-08-2016 Comment on above: Description: 50 Lead 50cm Nevro - [id number] Start: 06-05-2016 Comment on above: Description: NEVRO B LUE PERC LEAD KIT Lead 50cm Nevro - [id number] Start: 06-05-2016 Comment on above: Description: NEVRO B LUE PERC LEAD KIT Gnrtr Nrstm Ipg Kit Nevro - [id number] Start: 06-05-2016 Comment on above: Description: NEVRO N IPG KIT Screw Spinal Streamline 7.5x55mm - [id number] Start: 02-07-2022 Set Scr Spnl Ti Streamline - [id number] Start: 02-07-2022 Screw Spnl L45mm Dia7.5mm Thorlum Ti Ally Polyax Streamline - [id number] Start: 02-07-2022 Screw Spnl L50mm Dia7.5mm Thorlum Ti Ally Polyax Streamline - [id number] Start: 02-07-2022 Ta Spnl L120mm [id number] Thorlum Prebent Streamline - [id number] Start: 02-07-2022 Ta Spnl L100mm Nje68ph Thorlum Prebent Streamline - [id number] Start: 02-07-2022 Syringe With Nee dle [...] rehab Functional Status Date Assessment Result Facility 09-27-2024 Functional Status N/A [facility] 03-15-2024 Functional Status N/A [facility] 03-20-2023 Functional Status N/A [facility] 02-20-2023 Functional Status N/A [facility] 01-30-2023 Functional Status N/A [facility] Clinical Notes 06-07-2012 to 04-25-2025 Telephone Encounter - Julianna Barnes - 04/04/2025 1:42 PM EDTTelephone Encounter - Julianna Barnes - 04/04/2025 1:42 PM EDTTelephone Encounter - Julianna Barnes - 04/04/2025 1:42 PM EDT Note Date & Type Note Facility 04-25-2025 Note [facility] Electrophysiology Consult Note [facility] Cardiology - [facility] Reason for visit: Syncope HPI: Alisia Correa is a 64 y.o. year old with past medical history of Parkinson disease, diabetes mellitus type 2 with associated diabetic neuropathy, hypertension, COPD, peripheral vascular disease who has been known to have orthostatic hypotension with evident blood pressure drops who was previously treated with midodrine and subsequently pyridostigmine was added on. He has followed up with the network coordinator at [facility] and subsequently for his autonomic hypotension and issues he has had a follow-up with Cherelle Botello, She had ordered an event monitor which showed evidence of pauses of 3 seconds noted on 04/12/2025 at 10:30 AM PMH: Medical History[1] PSH: Surgical History[2] SH: Social Drivers of Health Tobacco Use: Medium Risk (04/05/2025) Patient History Smoking Tobacco Use: Former Smokeless Tobacco Use: Never Passive Exposure: Not on file Alcohol Use: Not on file Financial Resource Strain: Low Risk (11/25/2022) Received from [facility] Overall Financial Resource Strain (CARDIA) Difficulty of Paying Living Expenses: Not very hard Food Insecurity: No Food Insecurity (03/16/2025) Received from [facility] [place] Hunger Screening Within the past 12 months we worried whether our food would run out before we got money to buy more.: Never True Within the past 12 months the food we bought just didn't last and we didn't have money to get more.: Never True Transportation Needs: No Transportation Needs (11/25/2022) Received from [facility] PRAPARE - Transportation Lack of Transportation (Medical): No Lack of Transportation (Non-Medical): No Physical Activity: Not on file Stress: Not on file Social Connections: Not on file Intimate Partner Violence: Unknown (04/05/2025) Humiliation, Afraid, Rape, and Kick questionnaire Fear of Current or Ex-Partner: No Emotionally Abused: Not on file Physically Abused: Not on file Sexually Abused: Not on file Depression: Not at risk (04/05/2025) PHQ-2 PHQ-2 Score: 2 Housing Stability: Low Risk (11/25/2022) Received from [facility] Housing Stability Vital Sign Unable to Pay for Housing in the Last Year: No Number of Places Lived in the Last Year: 2 Unstable Housing in the Last Year: No Utilities: Not on file Health Literacy: Not on file Allergies: Allergies[3] Weight: No weight available Visit Vitals BP 99/69 (BP Location: Left arm, Patient Position: Sitting) Pulse 71 Ht 1.778 m (5' 10 ) SpO2 96% BMI 34.44 kg/m??? Smoking Status Former BSA 2.32 m??? Meds: Medications Ordered Prior to Encounter[4] ROS: Review of Systems Cardiovascular: Positive for dyspnea on exertion, leg swelling and syncope. Respiratory: Positive for shortness of breath. Skin: Positive for color change. Neurological: Positive for dizziness and light-headedness. All other systems reviewed and are negative. Physical Exam: Constitutional General Appearance: well-nourished, well-developed, appears stated age Level of Distress: comfortable Eyes KANWAL Neck Neck: supple, trachea midline Carotid Arteries: bilateral normal upstroke, no bruits Jugular Veins: normal jugular venous pressure Thyroid: not enlarged Lungs Respiratory Effort: unlabored Chest Exam: normal curvature, no thoracic deformity Auscultation: clear, no wheezing, no rales, no rhonchi Cardiovascular Chest wall: Rate And Rhythm: regular Heart Sounds: normal S1, normal s2, no gallop Systolic Murmur: not heard Diastolic Murmur: not heard Extremities: no cyanosis, no edema, no peripheral signs of emboli Peripheral Pulses Radial Pulse: normal Abdomen Inspection and Palpation: soft, non distended, no bruit, non tender Neurologic Gait: normal gait Labs: @LABRESULTS@ No results found for: CHOLESTEROL TOTAL , HDL , LDL CALC , LDL DIRECT , TRIGLYCERIDES , TSH , T3 TOTAL , T4 TOTAL , THYROID PEROXIDASE AB , BNP EKG: No results found for this or any previous visit (from the past 4464 hours). Echo: 04/24/2025 Stress test: Coronary angiogram: @CATH@ Diagnostic Imaging: No images are attached to the encounter. Assessment and Plan: - Sinus pause: Pt will benefit from a pacemaker given that he has symptoms of lightheadedness and the risk associated evidence of sinus pause noted on the monitor. I stated very clearly to the patient that I do not expect his symptoms to be completely resolved as he has elements of orthostatic hypotension that is unrelated to his bradycardia. - Parkinson's disease: Continue with home medication I discussed the procedure in length with figures to the patient and went over the risks, benefits and alternatives of the PPM implantation procedure. I stated to the patient that the risk can be classified as major and minor complications. The minor include discomfort over the incision (more content not included)... [facility] 04-05-2025 Note Alisia Correa is a [age]-year-old gentleman referred to Dr Edgar Espinoza and the Syncope and Autonomic Disorders Clinic in the Heart and Vascular Center at the [facility] for an evaluation of neurogenic orthostatic hypotension (nOH) secondary to Parkinson's disease. Referral from neurologist Dr. Samira Bowden, Parkinson's specialist. Past medical history significant for type 2 diabetes (20 years, non insulin dependent), severe diabetic neuropathy feet and hands, essential hypertension (20 years) COPD (previous tobacco 40 years), PVD (vascular surgery [facility]). Chief Complaint: Telemedicine visit. Patient located in [place], [place]. On with . HPI: Orthostatic hypotension frequent falls. Onset: 2008. Hx in PT drastic BP drop 75/55mmhg from 100/70mmhg Began midodrine: several years ago Pyridostigmine: one week 8, 2, 6pm highest 180/102mmhg lowest 94/60mmhg 87/57mmhg Since starting pyridostigmine BP highest 130/79mmhg Lowest 8040mmhg HR average 77bpm [facility] [employer] in [place]. Review of Systems Cardiovascular: Positive for near-syncope and syncope. Endocrine: Positive for heat intolerance. Musculoskeletal: Positive for falls. Last fall one month ago. Syncope with hypotension one month ago Use of wheelchair. Transfers. Lightheaded LOC unknown. Trauma, hit head. Fell and had syncope. No ED visit. Iced head Gastrointestinal: Positive for constipation and diarrhea. Genitourinary: Positive for incomplete emptying. Neurogenic bladder Has suprapubic catheter prone to UTI Tumor S1. Resection 8 years ago. Lost feeling in bladder, urination. Bowel and bladder incontinence. Neurological: Positive for aphonia, difficulty with concentration, dizziness, headaches, light-headedness, loss of balance, numbness, paresthesias, tremors and weakness. Negative for seizures. Psychiatric/Behavioral: Positive for hallucinations and memory loss. Negative for suicidal ideas and thoughts of violence. Objective Constitutional: Appearance: Not in distress. Chronically ill-appearing. Neurological: Mental Status: Alert and oriented to person, place and time. Comments: Aphonia, slight head tremor. bradykinesia Assessment/Plan The encounter diagnosis was Parkinson's disease with neurogenic orthostatic hypotension (CMS/HCC). Problem List Items Addressed This Visit None Visit Diagnoses Parkinson's disease with neurogenic orthostatic hypotension (CMS/HCC) - Primary Neurogenic orthostatic hypotension or nOH is a disturbance of the autonomic nervous system and a disturbance of blood pressure regulation. Patients usually have some form of pure autonomic failure (PAF). Parkinson's disease (PD) is commonly associated with nOH, but not all with nOH have PD. Another common cause of nOH is diabetes, indeed, 7-8% of both type I and type II diabetics suffer from this autonomic neuropathy. Patients typically present with severe orthostatic hypotension and the age of onset is usually over the 5th decade of life. Often the blood pressure may plummet 40 points or more from a supine or seated position. With that being said, the patient is at a high risk for injury or falls. 70% of patients may also have severe supine hypertension (SH). Thus, management can be quite challenging. Unlike a younger individual, patients with these disorders do not augment their heart rate with the orthostatic blood pressure drop, on the contrary, the HR increase is usually less than 15 bpm with standing. Some patients may require pacemaker support for their heart rate. Patients usually exhibit hypotension in the am and hypertension in the evening, thus a reversal of the normal circadian rhythm. Nocturnal polyuria is frequent due to the blood volume return to the vasculature when lying. This nighttime urination can be worrisome for falls. Many of the patients suffer from postrprandial hypotension as well. Heat, upright posture, prolonged standing, dehydration (common in the elderly) and a number of medications may contribute to the OH. Recognition of this syndrome in the elderly may be evasive. Unlike a young patient who interprets the blood pressure drop as a lightheaded, near syncope and sweating presentation, the patient with nOH may appear to be dazed, describe weakness, drop to the knees and fall with little warning. Because the blood pressure is typically taken lying or seated, the syndrome may be missed, as the blood pressure may be elevated. Unfortunately the first point of contact with these patients may be after a catastrophic fall from syncope. Patients with nOH are managed with medications which increase the blood volume (fludrocortisone, desmopressin acetate- but caution is that of edema and fluid volume overload). Peripheral vasoconstrictive agents like midodrine and droxidopa are used precautions for supine hypertension. Pyridostigmine has nice utility because it can increase stand (more content not included)... [facility] 04-04-2025 Miscellaneous Notes Refill request : traMADoL (ULTRAM) 50 mg tablet Last Filled : 09/30/2024 Last OV : 03/14/2025 Next OV : 04/25/2025 Reviewed by SECURITY DISPATCHER. Pend for signature. Platform Loader phoned in medication to pharmacy. Patient notified. documented in this encounter [facility] 04-04-2025 Telephone encounter Note Refill request : traMADoL (ULTRAM) 50 mg tablet Last Filled : 09/30/2024 Last OV : 03/14/2025 Next OV : 04/25/2025 Reviewed by SECURITY DISPATCHER. Pend for signature. [facility] 04-04-2025 Telephone encounter Note Platform Loader phoned in medication to pharmacy. Patient notified. [facility] 03-16-2025 Evaluation + Plan note Associated Problem(s): Open wound of left great toe PVR with toe pressure [facility] 03-16-2025 Evaluation + Plan note Associated Problem(s): Encounter for abdominal aortic aneurysm (AAA) screening No abdominal aortic aneurysms on screening duplex ultrasound. [facility] 03-16-2025 Miscellaneous Notes Associated Problem(s): Open wound of left great toe PVR with toe pressure Associated Problem(s): Encounter for abdominal aortic aneurysm (AAA) screening No abdominal aortic aneurysms on screening duplex ultrasound. documented in this encounter [facility] 03-16-2025 History of Present illness Narrative Images from the original note were not included. To: ELLEN CRABTREE, DO HPI: Alisia Correa Sr. is a 64 y.o. male with Nonhealing left great toe wound. He also has abdominal aortic aneurysms screening ultrasound. The last time he had PVR he had a normal ANUJA with reduced toe pressure. Does not have new testing. We discussed hyperbaric oxygen therapy at that time.. Review of Systems: Review of Systems Constitutional: Negative. HENT: Negative. Respiratory: Negative. Cardiovascular: Negative. Gastrointestinal: Negative. Endocrine: Negative. Genitourinary: Negative. Musculoskeletal: Negative. Skin: Negative. Neurological: Negative. Hematological: Negative. Medications: Current Outpatient Medications on File Prior to Visit Medication Sig Dispense Refill acetaminophen (TYLENOL) 325 mg tablet Take 2 tablets (650 mg total) by mouth every 6 (six) hours as needed for pain. atorvastatin (LIPITOR) 10 mg tablet Take 1 tablet (10 mg total) by mouth daily. 30 tablet 1 carbidopa-levodopa (SINEMET CR) 25-100 mg per CR tablet TAKE 1 TABLET BY MOUTH AT 2AM, 2 TABLETS AT 6AM AND 10AM, 1 TABLET AT 2PM, 6PM, AND 10PM. TAKE WITH SINEMET IR 240 tablet 11 carbidopa-levodopa (SINEMET) 25-100 mg per tablet TAKE 2 TABLETS BY MOUTH AT 6AM AND 10AM, 1 TAB AT 2PM AND 6PM. AVOID PROTEIN 1 HOUR BEFORE OR AFTER EACH DOSE. TAKE ALONG WITH SINEMET CR. 180 tablet 11 diclofenac (VOLTAREN) 75 mg EC tablet Take 1 tablet (75 mg total) by mouth in the morning and 1 tablet (75 mg total) before bedtime. DULoxetine (CYMBALTA) 60 mg capsule Take 1 capsule (60 mg total) by mouth nightly. ezetimibe (ZETIA) 10 mg tablet Take 1 tablet (10 mg total) by mouth daily. 30 tablet 0 fludrocortisone (FLORINEF) 0.1 mg tablet 2 tabs daily as directed 180 tablet 3 midodrine (PROAMATINE) 5 mg tablet Take 3 tabs by mouth at 8 am, and take 2 tabs at 12 pm and 2 tabs at 6 pm, 630 tablet 3 montelukast (SINGULAIR) 10 mg tablet Take 1 tablet (10 mg total) by mouth in the morning. potassium citrate (UROCIT-K) 15 mEq tablet extended release Take 1 tablet (15 mEq total) by mouth in the morning and 1 tablet (15 mEq total) before bedtime. pregabalin (LYRICA) 300 mg capsule Take 1 capsule (300 mg total) by mouth in the morning and 1 capsule (300 mg total) before bedtime. sulfamethoxazole-trimethoprim (BACTRIM DS) 800-160 mg per tablet Take 1 tablet by mouth in the morning and 1 tablet before bedtime. Taking Thursday, Thursday, Thursday. SUMAtriptan (IMITREX) 50 mg tablet Take 1 tablet (50 mg total) by mouth once as needed for migraine for up to 180 doses. May repeat in 2 hours if unresolved. Do not exceed 200 mg in 24 hours. 15 tablet 11 tolterodine LA (DETROL LA) 4 mg 24 hr capsule Take 1 capsule (4 mg total) by mouth in the morning. topiramate (TOPAMAX) 100 mg tablet Take 1 tablet (100 mg total) by mouth 2 (two) times a day. 60 tablet 1 traMADoL (ULTRAM) 50 mg tablet Take 1 tablet (50 mg total) by mouth every 6 (six) hours as needed for pain. 120 tablet 5 zinc oxide 20 % ointment Apply 1 Application topically as needed. acarbose (PRECOSE) 25 mg tablet Take 1 tablet (25 mg total) by mouth 3 (three) times a day. (Patient not taking: Reported on 03/16/2025) 90 tablet 1 acetaminophen-caffeine (EXCEDRIN TENSION HEADACHE) 500-65 mg tablet Take 2 tablets by mouth every 6 (six) hours as needed (Migraine). (Patient not taking: Reported on 03/16/2025) 90 tablet 0 betamethasone, augmented, (DIPROLENE) 0.05 % cream Apply 1 application topically daily. (Patient not taking: Reported on 03/16/2025) 30 g 0 docusate sodium (COLACE) 100 mg capsule Take 1 capsule (100 mg total) by mouth daily as needed. (Patient not taking: Reported on 03/16/2025) multivitamin capsule Take 1 capsule by mouth in the morning. (Patient not taking: Reported on 03/16/2025) ondansetron (ZOFRAN) 4 mg tablet Take 2 tablets (8 mg total) by mouth every 6 (six) hours as needed for nausea or vomiting. (Patient not taking: Reported on 03/16/2025) 20 tablet 0 No current facility-administered medications on file prior to visit. Past Medical History: Past Medical History: Diagnosis Date Diabetes mellitus [place] Diabetes mellitus type 2, controlled [place] HL (hearing loss) Hypertension Kidney stones Migraine Parkinson's disease [place] Spinal stenosis Past Surgical History: Past Surgical History: Procedure Laterality Date BACK SURGERY cervical. plates on 5,6, 7. and lumbar surgery. multiple surgeries and revisions GASTRIC BYPASS due to issues with esophagous HAND SURGERY KIDNEY STONE SURGERY multiple PROSTATE SURGERY REPLACEMENT TOTAL KNEE BILATERAL SHOULDER SURGERY TOE AMPUTATION TOTAL HIP ARTHROPLASTY bilateral TUMOR EXCISION sacral region Social and Family History: Social History Socioeconomic History Marital status: Spouse name: Not on file Number of children: Not on file Years of education: Not on file Highest education level: Not on file Occupational History Not on file Tobacco Use Smoking status: Former Types: Cigarettes Smokeless tobacco: Never Vaping Use Vaping status: Never Used Substance and Sexual Activity Alcohol use: Not Currently Drug use: Not Currently Sexual activity: Defer Other Topics Concern Not on file Social History Narrative Not on file Social Drivers of Health Financial Resource Strain: Low Risk (11/25/2022) Received from [facility] Overall Financial Resource Strain (CARDIA) Difficulty of Paying Living Expenses: Not very hard Food Insecurity: No Food Insecurity (03/16/2025) Hunger Screening Food Insecurity - Worry: Never True Food Insecurity - Inability: Never True Transportation Needs: No Transportation Needs (11/25/2022) Received from [facility] PRAPARE - Transportation Lack of Transportation (Medical): No Lack of Transportation (Non-Medical): No Physical Activity: Not on file Stress: Not on file Social Connections: Not on file Interpersonal Safety: Not on file Housing Instability: Low Risk (11/25/2022) Received from [facility] Housing Stability Vital Sign Unable to Pay for Housing in the Last Year: No Number of Places Lived in the Last Year: 2 Unstable Housing in the Last Year: No No family history on file. Recent Labs: Recent and relative labs were reviewed and interpreted and contributed to the assessment and plan below. Vitals: BP 106/70 (BP Site: Left Arm, BP Postition: Sitting, BP CUFF SIZE: M (9-13 inches)) Pulse 73 Temp 36.4 C (97.6 F) (Temporal) Ht 177.8 cm (5' 10 ) Wt 106.6 kg (235 lb) SpO2 93% BMI 33.72 kg/m Body mass index is 33.72 kg/m . Physical Exam: Physical Exam Constitutional: Appearance: Normal appearance. HENT: Head: Normocephalic and atraumatic. Mouth/Throat: Mouth: Mucous membranes are moist. Eyes: Extraocular Movements: Extraocular movements intact. Pupils: Pupils are equal, round, and reactive to light. Cardiovascular: Rate and Rhythm: Normal rate and regular rhythm. Pulmonary: Effort: Pulmonary effort is normal. Breath sounds: Normal breath sounds. Abdominal: General: Abdomen is flat. Bowel sounds are normal. Palpations: Abdomen is soft. Musculoskeletal: General: Normal range of motion. Cervical back: Normal range of motion. Skin: General: Skin is warm and dry. Neurological: General: No focal deficit present. Mental Status: He is alert and oriented to person, place, and time. Mental status is at baseline. Psychiatric: Mood and Affect: Mood normal. Behavior: Behavior normal. Thought Content: Thought content normal. Judgment: Judgment normal. Recent testing: Assessment and Plan: Problem List Encounter for abdominal aortic aneurysm (AAA) screening - Primary Current Assessment & Plan No abdominal aortic aneurysms on screening duplex ultrasound. Open wound of left great toe Overview PVR with toe pressures Current Assessment & Plan PVR with toe pressure Aguila was seen today for 1 year follow up no testing. Diagnoses and all orders for this visit: Encounter for abdominal aortic aneurysm (AAA) screening Open wound of left great toe, subsequent encounter Heidy Marin MD, TESSIE, RPVI, FSVS, FACS [facility] Vascular This note was created with the assistance of a speech recognition program. While intending to generate a timely document that accurately reflects the content of the visit, no guarantee can be provided that every grammatical or spelling mistake has been or will be identified or corrected. Thank you for your understanding. documented in this encounter [facility] 03-14-2025 History of Present illness Narrative Images from the original note were not included. [address] [facility] [id number] Patient: Alisia Correa Sr. Date of : 1960 Encounter Date: 03/14/2025 Patient Care Team: Ellen Crabtree DO as PCP - General (Family Medicine) History of Present Illness: Alisia Correa is a 64 year old male, established with Dr. Bowden, seeing me for the first time today. Has a diagnosis of Parkinson's disease and dysautonomia. Last saw Dr. Bowden in August 2024 and at that time had issues with both hypotension and symptomatic hypertension with headaches for which he was referred to dysautonomia clinic. He was never seen at that clinic however. He still takes both midodrine 15mg/10mg/10mg/10mg and florinef 0.1-0.2mg daily. He does check BPs at home and they vary from low 88/39 to as high as 185/112. Did not bring BP log today. He uses motorized chair due to hypotension issues. He states BP fluctuations started after starting sinemet. Sinemet is very helpful for his tremor. He has a history of migraines since 2022 after a fall with head injury and LOC. Migraines are bad as well. He notes associated nausea/vomiting, photophobia, feels his tongue is thick. Headache is bifrontal 10/10. These headaches occur 2-3 times per week and last all day. He takes imitrex 50mg for migraine which helps some of the time. When he takes a second dose it usually eases the headache. He takes topamax 100mg BID (but he states he takes it for tremor). Also on lyrica 300mg BID (for neuropathy) and cymbalta 60mg (for spasms). He cannot have MRIs due to spinal stimulator which is not compatible. Migraine triggers include high or low BP. He feels like he is in a boat when he stands up. Of note he has past history of lumbar stenosis s/p surgery 2021, DMII, COPD. He also has a suprapubic catheter which was needed after lumbar surgery. He has chronic back pain. Diagnosis: PD 2019 Tremor: controlled on sinemet Gait: motorized wheel chair Falls: yes, only during LOC events from hypotension (6 events since October all with standing up) On/off: denies Dyskinesias: denies Voice: yes, quietness of voice Swallowing: feels food gets stuck in his throat, coughs with liquid Mood: denies anxiety/depression/lack of interest in activities (apathy) Impulsive behaviors: denies Hallucinations: denies Memory: intact, no concerns Impulsive behaviors: denies Sleep: Lightheadedness: feels things are moving when he gets out of his chair Bladder: suprapubic catheter s/p lumbar surgery Constipation: yes, tried miralax and metamucil. Feels he cannot sense when he needs to have a bowel movement. Drooling: occasional Diaphoresis: denies ADL: Intact IADL: Intact Driving: does not drive Current medication regimen: sinemet 25-100mg 2 tabs 6am and 10am 1 tab 2pm and 6pm, sinemet CR 25-100mg 3 at 6am and 10 am, 1 at 2pm,6pm and 10pm. Midodrine 15mg 8am, 10am 12pm, 10mg 2pm, 10mg 6pm. Florinef 0.1mg daily (takes 0.2mg if bp<100) Past medications tried: no others for PD Allergies: Celecoxib, Erythromycin base, Moxifloxacin, Clonazepam, Levofloxacin, Erythromycin, and Pimavanserin Review of Relevant Patient Questionnaires: HIT 6: No data to display PHQ-9: 08/23/2024 11:29 AM 11/16/2023 1:16 PM 08/11/2022 9:25 AM PM AMB PHQ 9 Little interest or pleasure in doing things 3 1 1 Feeling down, depressed, or hopeless 2 1 0 Trouble falling or staying asleep, or sleeping too much 3 2 2 Feeling tired or having little energy 3 2 1 Poor appetite or overeating 3 2 1 Feeling bad about yourself - or that you are a failure or have let yourself or your family down 3 2 1 Trouble concentrating on things, such as reading the newspaper or watching television 3 2 1 Moving or speaking so slowly that other people could have noticed. Or the opposite - being so fidgety or restless that you have been moving around a lot more than usual 0 0 1 Thoughts that you would be better off , or of hurting yourself in some way 1 0 0 Total Score 21 12 8 If you checked off any problems, how difficult have these problems made it for you to do your work, take care of things at home, or get along with other people? Not difficult at all Somewhat difficult PHQ-15: No data to display ADRIAN-7: 11/16/2023 1:00 PM 08/11/2022 9:00 AM PM AMB ADRIAN 7 Feeling nervous, anxious or on edge 2 1 Not being able to stop or control worrying 2 1 Worrying too much about different things 2 0 Trouble relaxing 3 0 Being so restless that it is hard to sit still 1 0 Becoming easily annoyed or irritable 3 0 Feeling afraid as if something awful might happen 1 0 ADRIAN-7 Total Score 14 2 PTSD: No data to display [place]: No data to display TONIA-10: No data to display Past Medical, Family, Surgical, and Social History Update: The following portions of the patient's history were reviewed and updated as appropriate: allergies, current medications, past family history, past medical history, past social history, past surgical history and problem list. Past Medical History: Diagnosis Date Diabetes mellitus [place] Diabetes mellitus type 2, controlled [place] HL (hearing loss) Hypertension Kidney stones Migraine Parkinson's disease [place] Spinal stenosis No family history on file. Past Surgical History: Procedure Laterality Date BACK [...] by mouth 3 (three) times a day. (Patient not taking: Reported on 08/23/2024) 90 tablet 1 acetaminophen (TYLENOL) 325 mg tablet Take 2 tablets (650 mg total) by mouth every 6 (six) hours as needed for pain. acetaminophen-caffeine (EXCEDRIN TENSION HEADACHE) 500-65 mg tablet Take 2 tablets by mouth every 6 (six) hours as needed (Migraine). (Patient not taking: Reported on 08/23/2024) 90 tablet 0 atorvastatin (LIPITOR) 10 mg tablet Take 1 tablet (10 mg total) by mouth daily. 30 tablet 1 betamethasone, augmented, (DIPROLENE) 0.05 % cream Apply 1 application topically daily. (Patient not taking: Reported on 08/23/2024) 30 g 0 carbidopa-levodopa (SINEMET CR) 25-100 mg per CR tablet TAKE 1 TABLET BY MOUTH AT 2AM, 2 TABLETS AT 6AM AND 10AM, 1 TABLET AT 2PM, 6PM, AND 10PM. TAKE WITH SINEMET IR 240 tablet 11 carbidopa-levodopa (SINEMET) 25-100 mg per tablet TAKE 2 TABLETS BY MOUTH AT 6AM AND 10AM, 1 TAB AT 2PM AND 6PM. AVOID PROTEIN 1 HOUR BEFORE OR AFTER EACH DOSE. TAKE ALONG WITH SINEMET CR. 180 tablet 11 diclofenac (VOLTAREN) 75 mg EC tablet Take 1 tablet (75 mg total) by mouth in the morning and 1 tablet (75 mg total) before bedtime. docusate sodium (COLACE) 100 mg capsule Take 1 capsule (100 mg total) by mouth daily as needed. (Patient not taking: Reported on 08/23/2024) DULoxetine (CYMBALTA) 60 mg capsule Take 1 capsule (60 mg total) by mouth nightly. ezetimibe (ZETIA) 10 mg tablet Take 1 tablet (10 mg total) by mouth daily. 30 tablet 0 fludrocortisone (FLORINEF) 0.1 mg tablet 2 tabs daily as directed 180 tablet 3 midodrine (PROAMATINE) 5 mg tablet Take 3 tabs by mouth at 8 am, and take 2 tabs at 12 pm and 2 tabs at 6 pm, 630 tablet 3 montelukast (SINGULAIR) 10 mg tablet Take 1 tablet (10 mg total) by mouth in the morning. multivitamin capsule Take 1 capsule by mouth in the morning. (Patient not taking: Reported on 08/23/2024) ondansetron (ZOFRAN) 4 mg tablet Take 2 tablets (8 mg total) by mouth every 6 (six) hours as needed for nausea or vomiting. (Patient not taking: Reported on 08/23/2024) 20 tablet 0 potassium citrate (UROCIT-K) 15 mEq tablet extended release Take 1 tablet (15 mEq total) by mouth in the morning and 1 tablet (15 mEq total) before bedtime. pregabalin (LYRICA) 300 mg capsule Take 1 capsule (300 mg total) by mouth in the morning and 1 capsule (300 mg total) before bedtime. sulfamethoxazole-trimethoprim (BACTRIM DS) 800-160 mg per tablet Take 1 tablet by mouth in the morning and 1 tablet before bedtime. SUMAtriptan (IMITREX) 50 mg tablet Take 1 tablet (50 mg total) by mouth once as needed for migraine for up to 180 doses. May repeat in 2 hours if unresolved. Do not exceed 200 mg in 24 hours. 15 tablet 11 tolterodine LA (DETROL LA) 4 mg 24 hr capsule Take 1 capsule (4 mg total) by mouth in the morning. topiramate (TOPAMAX) 100 mg tablet Take 1 tablet (100 mg total) by mouth 2 (two) times a day. (Patient not taking: Reported on 08/23/2024) 60 tablet 1 traMADoL (ULTRAM) 50 mg tablet Take 1 tablet (50 mg total) by mouth every 6 (six) hours as needed for pain. 120 tablet 5 zinc oxide 20 % ointment Apply 1 Application topically as needed. No current facility-administered medications for this visit. (All medications reviewed and updated by provider since last office visit or hospitalization) Tobacco History: Social History Tobacco Use Smoking Status Former Types: Cigarettes Smokeless Tobacco Never Tobacco Comments 8 cigs per day (If patient a smoker, smoking cessation counseling offered) Social History: Social History Substance and Sexual Activity Alcohol Use Not Currently Review of Systems: Review of Systems Neurological: Positive for tremors and light-headedness. Physical Exam: Vitals: There were no vitals filed for this visit. Neurological Physical Exam: Physical Exam: Mental Status: Orientation: Oriented to person and place. Speech: Voice is hypophonic. Language: Normal. Cranial Nerves: CN III, IV, : CN III: EOM full and no nystagmus. CN VII: Facial expression fully symmetric. CN XII: CN XII normal. Motor: LUE paratonia No rigidity upper extremities Bradykinesia MARIXA toe tap and finger tap RUE biceps and triceps 4/5- right shoulder pain, otherwise 5/5 strength. Gait/Coord/DTR: Gait: Wheel chair bound. Coordination: Dysmetria RUE>LUE with finger to now Patient reports unable to attempt heel to pollack Wheel chair bound. Tremor: Irregular jerky/myoclonic type postural tremor LUE>RUE RUE intermittent rest tremor. Assessment and Plan: There are no diagnoses linked to this encounter. 64 year old male with diagnosis of parkinson's disease with severe orthostatic hypotension as well as hypertension, dysphagia with liquids and solids, constipation (no significant BM in several weeks), cerebellar features and right arm weakness on exam with only mild parkinsonian features. Differential: Parkinson's Disease dysautonomia, however dysautonomia started very early in the course for typical PD. Multiple System Atrophy is a strong consideration given severe, early onset dysautonomia and cerebellar features on exam, however he reports a strong levodopa response. Diabetic dysautonomia also possible. He also has right arm weakness, out of proportion/not involving his shoulder. Will rule out stroke or other lesion causing weakness and dysmetria with CT head. He is not able to have MRI due to incompatible spinal stimulator. The patients medications were reviewed and confirmed that they are not prescribed any contraindicated dopamine blocking agent. Compression stockings during the day 2. Referral to dysautonomia clinic 3. Swallow study 4. GI referral- dysphagia, constipation 5. Magnesium citrate once for constipation followed by daily miralax 6. CT head 7. Home BP checks to be sent to me in 1 week so I can adjust medication. Check blood pressure in the morning before 8am medication, again at 10am, 2pm, and 6pm. (Consider lowering sinemet, changing to rytary (not covered by insurance) or adding droxidopa or mestinon pending BP readings) Follow-up: soonest available Total time spent was 90 minutes: Preparing to see the patient (e.g., review of tests) Obtaining and/or reviewing separately obtained history Performing a medically appropriate examination and/or evaluation Counseling and educating the patient/family/caregiver Ordering medications, tests, or procedures Referring and communicating with other health health care assistant (not separately reported) Documenting clinical information in the electronic or other health record LYN BANKS MD This note was created with the assistance of a speech recognition program. While intending to generate a timely document that accurately reflects the content of the visit, no guarantee can be provided that every grammatical or spelling mistake has been or will be identified or corrected. Thank you for your understanding. documented in this encounter [facility] 03-14-2025 Instructions Lyn Banks MD - 03/14/2025 3:00 PM EDT Wear thigh high compression socks 20mmHg during the day, remove for bed time. Swallow study. Call to schedule appointment with Dr. Espinoza at [facility] (dysautonomia specialist). Magnesium citrate solution- drink 1 bottle once. This is likely to make you have a large bowel movement (quickly). Sit on the comode right away. After your have a bowel movement, restart miralax 1 capful once per day to ensure we prevent constipation. GI referral for trouble swallowing. Blood pressure checks at home: keep a log and send to Dr. Banks in 1 week. Check blood pressure in the morning before 8am medication, again at 10am, 2pm, and 6pm. CT head [facility] Radiology Diagnostic study note [facility] [place] [address] CT Scan Report Signed Patient: Alisia Correa MR#: [id number] : 1960 Acct:[id number] Age/Sex: 64 / M ADM Date: 5 Loc: CT Room: Type: [facility] Attending Dr: Romel Leonardo MD Copies to: Romel Leonardo MD~ Ordering Provider: Romel Leonardo MD Date of Service: 02/15/25 CT/CT abdomen pelvis wo con: eval for nephrolithiasisor bladder stones CT ABDOMEN AND PELVIS WITHOUT INTRAVENOUS CONTRAST: CLINICAL HISTORY: Recurrent UTIs. COMPARISON: CT abdomen and pelvis 06/22/2024 TECHNIQUE: Spiral images were obtained through the abdomen and pelvis without intravenous contrast. This CT exam was performed using one or more following dose reduction techniques: Automated exposure control, adjustment of the mA and/or kV according to patient size, or use of iterative reconstruction technique. FINDINGS: Lung Bases: [Elevation left hemidiaphragm with consolidative changes involving the left lung base. Mild right basilar atelectasis.] Organs:Suboptimal evaluation due to lack of IV contrast. Liver gallbladder pancreas spleen and adrenal glands all appear unremarkable. Kidneys demonstratebilateral nephrolithiasis largest stone measuring 3 mm involving the right kidney. No obstructive uropathy. Abdominal aorta appears normal in caliber. GI: Stomach demonstrates postoperative changes. Small bowel appears nondilated. Appendix is normal. No acute colonic abnormality.[ Pelvis:[Suboptimal evaluation due to streak artifact from the bilateral hip prostheses. Suprapubic catheter is in place. Peritoneum/Retroperitoneum:No free air or free fluid or lymphadenopathy.[ Abd wall/Bones:Abdominal wall demonstrates no acute findings. Osseous structures demonstrate degenerative change. Neurostimulator device is in place.[Hardware fixation involving the lumbosacral spine. CT/CT abdomen pelvis wo con IMPRESSION: 1. Bilateral nephrolithiasis. No obstructive uropathy. 2. Elevation left hemidiaphragm with consolidative changes involving the left lung base. Developing pneumonia cannot BE excluded. Impression dictated by: Steven Shah Jr., D.O. 02/15/2025 3:42 PM Dictation Location: [place] [address] Transcribed By: [facility] 02/15/25 1542 Dictated By: Steven Shah Jr, DO 02/15/25 1538 Signed By: 02/15/25 1542 [facility] 12-29-2024 Evaluation note Diagnosis Onset Date Resolution Depression acute December 29 1:14pm Diabetes acute December 29 1:14pm Migraine acute December 29 1:14pm Parkinsons acute December 29 1:14pm Sleep apnea acute December 29, 025 1:14pm Suprapubic catheter acute December 29, 2024 1:14pm Chronic suprapubic catheter acute January 30, 2025 1:55pm Parkinsons acute January 30 1:55pm Recurrent UTI acute January 30, 2025 1:55pm [facility] Work Phone: [phone] NotePatient Education Obstetrics and Gynecology Urinary Tract Infection, Adult A urinary tract infection (UTI) is an infection of any part of the urinary tract. The urinary tractincludes the kidneys, ureters, bladder, and urethra. These organs make, store, and get rid of urinein the body. An upper UTI affects the ureters and kidneys. A lower UTI affects the bladder and urethra. What are the causes? Most urinary tract infections are caused by bacteria in your genital area around your urethra, where urine leaves your body. These bacteria grow and cause inflammation of your urinary tract. What increases the risk? You are more likely to develop this condition if: ??? You have a urinary catheter that stays in place. ??? You are not able to control when you urinate or have a bowel movement (incontinence). ??? You are female and you: ? Use a spermicide or diaphragm for control. ? Have low estrogen levels. ? Are . ??? You have certain genes that increase your risk. ??? You are sexually active. ??? You take antibiotic medicines. ??? You have a condition that causes your flow of urine to slow down, such as: ? An enlarged prostate, if you are male. ? Blockage in your urethra. ? A kidney stone. ? A nerve condition that affects your bladder control (neurogenic bladder). ? Not getting enough to drink, or not urinating often. ??? You have certain medical conditions, such as: ? Diabetes. ? A weak disease-fighting system (immunesystem). ? Sickle cell disease. ? Gout. ? Spinal cord injury. What are the signs or symptoms? Symptoms of this condition include: ??? Needing to urinate right away (urgency). ??? Frequent urination. This may include small amounts of urine each time you urinate. ??? Pain or burning with urination. ??? Blood in the urine. ??? Urine that smells bad or unusual. ??? Trouble urinating. ??? Cloudy urine. ??? Vaginal discharge, if you are female. ??? Pain in the abdomen or the lower back. You may also have: ??? Vomiting or a decreased appetite. ??? Confusion. ??? Irritability or tiredness. ??? A fever or chills. ??? Diarrhea. The first symptom in older adults may be confusion. In some cases, they may not have any symptoms until the infection has worsened. How is this diagnosed? This condition is diagnosed based on your medical history and a physical exam. You may also have other tests, including: ??? Urine tests. ??? Blood tests. ??? Tests for STIs (sexually transmitted infections). If you have had more than one UTI, a cystoscopy or imaging studies may be done to determine the cause of the infections. How is this treated? Treatment for this condition includes: ??? Antibiotic medicine. ??? [id number]-nis-[id number] medicines to treat discomfort. ??? Drinking enough water to stay hydrated. If you have frequent infections or have other conditions such as a kidney stone, you may need to see a health care provider who specializes in the urinary tract (urologist). In rare cases, urinary tract infections can cause sepsis. Sepsis is a life- threatening condition that occurs when the body responds to an infection. Sepsis is treated in the hospital with IV antibiotics, fluids, and other medicines. Follow these instructions at home: Medicines ??? Take [id number] and prescription medicines only as told by your health care provider. ??? If you were prescribed an antibiotic medicine, take it as told by your health care provider. Donot stop using the antibiotic even if you start to feel better. General instructions ??? Make sure you: ? Empty your bladder often and completely. Do not hold urine for long periods of time. ? Empty your bladder after sex. ? Wipe from front to back after urinating or having a bowel movement if you are female. Use each tissue only one time when you wipe. ??? Drink enough fluid to keep your urine pale yellow. ??? Keep all follow-up visits. This is important. Contact a health care provider if: ??? Your symptoms do not get better after 1?2 days. ??? Your symptoms go away and then return. Get help right away if: ??? You have severe pain in your back or your lower abdomen. ??? You have a fever or chills. ??? You have nausea or vomiting. Summary ??? A urinary tract infection (UTI) is an infection of any part of the urinary tract, which includes the kidneys, ureters, bladder, and urethra. ??? Most urinary tract infections are caused by bacteria in your genital area. ??? Treatment for this condition often includes antibiotic medicines. ??? If you were prescribed an antibiotic medicine, take it as told by your health care provider. Donot stop using the antibiotic even if you start to feel better. ??? Keep all follow-up visits. This is important. This information is not intended to replace advice given to you by your health care provider. Make sure you di (more content not included)...[facility]02-10-2025 Hospital Discharge instructions Patient Education 11/28/2024 16:00:59 Antibiotic Medicine, Adult Antibiotic Medicine, Adult Antibiotic medicines are used to treat infections caused by bacteria. These medicines do not work for illnesses caused by viruses. Antibiotics work by killing the bacteria that are making you sick, but they can also have serious side effects. Antibiotics must be used safely and only when needed. When do I need to take antibiotics? You may need antibiotics for: A urinary tract infection (UTI). Strep throat. Bacterial sinus infection. Meningitis. Serious lung infections. Your health care provider may start you on antibiotics while you are waiting for test results. Tests may include a culture of the throat, urine, blood, or mucus. Your health care provider may change or stop your antibiotic depending on your test results. When are antibiotics not needed? You do not need antibiotics for most common illnesses. These illnesses may be caused by a virus, not by bacteria. You do not need antibiotics for: The common cold. The flu (influenza). Sore throat. Discolored mucus. Bronchitis. Antibiotics are not always needed for all infections caused by bacteria. Many of these infections clear up on their own. Do not take antibiotics when they are not needed. How long should I take my antibiotic? You must take the entire amount prescribed to you. Take your antibiotics as told by your health care provider. Do not stop taking your antibiotics even if you start to feel better. If you stop takingthem too soon: You may feel sick again. Your infection may get harder to treat. Each course of antibiotics needs a different length of time to work. The length of time may vary from a few days to a few weeks. What if I miss a dose? Try not to miss any doses of medicine. If you miss a dose, call your health care provider or pharmacist for help. Sometimes, it is okay to take the missed dose as soon as possible. Do not take doubleor extra doses. What are the risks of [...] your health care provider know if: You have diarrhea while taking an antibiotic. You have diarrhea after you stop taking an antibiotic. C. diff infection can start weeks after stopping the antibiotic. Taking an antibiotic also puts you at risk for getting sick in the future with bacteria that do notrespond to medicine (antibiotic-resistant infection). Antibiotics can cause bacteria to change so that if the antibiotic is taken again, the medicine cannot kill the bacteria. These infections can bemore serious because they are hard, or sometimes impossible, to treat. Do antibiotics affect control? control pills may not work while you are taking antibiotics. If you are taking control pills: Keep taking them as usual. Use a second form of control, such as a condom, to avoid unwanted . Do this for as long as told by your health care provider. What else should I know about taking antibiotics? Take antibiotics exactly as told. Take the correct amount of medicine at the same time each day. Ask your health care provider: ?How long to wait between doses. ?If you should take your antibiotic with food or water. ?If you should avoid certain foods, drinks, or medicines while taking your antibiotics. ?If you need to watch for any side effects. Use only the antibiotics prescribed to you by your health care provider. Do not use antibiotics prescribed for someone else. Drink a large glass of water when taking your antibiotics unless told otherwise. Drink enough fluidto keep your urine pale yellow. Ask your pharmacist for a dosage syringe, cup, or spoon that correctly measures your antibiotics. Ask your pharmacist or health care provider how to safely get rid of leftover medicine. Follow these instructions at home: Take your antibiotics as told by your health care provider. Do not stop taking your antibiotics even if you start to feel better. Return to your normal activities as told by your health care provider. Ask your health care provider what activities are safe for you. Contact a health care provider if: Your [...] the antibiotic right away. Signs may include: ?Raised, itchy, red bumps on your skin (hives). ?Skin rash. ?Trouble breathing. ?High-pitched whistling sounds when you breathe, most often when you breathe out (wheezing). ?Swelling anywhere on your body. ?Feeling dizzy. ?Vomiting. You have signs of liver problems, such as: ?Dark or blood-colored urine. ?Yellow color to your skin. ?Bruising or bleeding easily. You have severe diarrhea, bloody diarrhea, or stomach cramps. You have a severe headache. These symptoms may be an emergency. Get help right away. Call 911. Do not wait to see if the symptoms will go away. Do not drive yourself to the hospital. This information is not intended to replace advice given to you by your health care provider. Make sure you discuss any questions you have with your health care provider. Document Revised: 05/05/2023 Document Reviewed: 05/05/2023 [place] Patient Education 2023 [employer]. Follow Up Care 11/25/2024 08:07:08 With:RODRI KHAN, LYN Crum, URL Address: [address] [place] [address] When:Within 1 Month(s) [facility] Lori 02-10-2025 NotePatient Education Caregiving Antibiotic Medicine, Adult Antibiotic medicines are used to treat infections caused by bacteria. These medicines do not work for illnesses caused by viruses. Antibiotics work by killing the bacteria that are making you sick, but they can also have serious side effects. Antibiotics must be used safely and only when needed. When do I need to take antibiotics? You may need antibiotics for: ??? A urinary tract infection (UTI). ??? Strep throat. ??? Bacterial sinus infection. ??? Meningitis. ??? Serious lung infections. Your health care provider may start you on antibiotics while you are waiting for test results. Tests may include a culture of the throat, urine, blood, or mucus. Your health care provider may change or stop your antibiotic depending on your test results. When are antibiotics not needed? You do not need antibiotics for most common illnesses. These illnesses may be caused by a virus, not by bacteria. You do not need antibiotics for: ??? The common cold. ??? The flu (influenza). ??? Sore throat. ??? Discolored mucus. ??? Bronchitis. Antibiotics are not always needed for all infections caused by bacteria. Many of these infections clear up on their own. Do not take antibiotics when they are not needed. How long should I take my antibiotic? You must take the entire amount prescribed to you. Take your antibiotics as told by your health care provider. Do not stop taking your antibiotics even if you start to feel better. If you stop takingthem too soon: ??? You may feel sick again. ??? Your infection may get harder to treat. Each course of antibiotics needs a different length of time to work. The length of time may vary from a few days to a few weeks. What if I miss a dose? Try not to miss any doses of medicine. If you miss a dose, call your health care provider or pharmacist for help. Sometimes, it is okay to take the missed dose as soon as possible. Do not take doubleor extra doses. What are the risks of taking antibiotics? Antibiotics can cause: ??? Allergic reactions. ??? Nausea. ??? Yeast infections. ??? Liver problems. Antibiotics can also cause an infection called Clostridioides difficile (C. difficile or C. diff), which causes severe diarrhea. This infection happens when the antibiotics kill the healthy bacteria in your intestines. This allows C. diff to grow. C. diff needs to be treated right away. Let your health care provider know if: ??? You have diarrhea while taking an antibiotic. ??? You have diarrhea after you stop taking an antibiotic. C. diff infection can start weeks after stopping the antibiotic. Taking an antibiotic also puts you at risk for getting sick in the future with bacteria that do notrespond to medicine (antibiotic-resistant infection). Antibiotics can cause bacteria to change so that if the antibiotic is taken again, the medicine cannot kill the bacteria. These infections can bemore serious because they are hard, or sometimes impossible, to treat. Do antibiotics affect control? control pills may not work while you are taking antibiotics. If you are taking control pills: ??? Keep taking them as usual. ??? Use a second form of control, such as a condom, to avoid unwanted . Do this for as long as told by your health care provider. What else should I know about taking antibiotics? Take antibiotics exactly as told. ??? Take the correct amount of medicine at the same time each day. ??? Ask your health care provider: ? How long to wait between doses. ? If you should take your antibiotic with food or water. ? If you should avoid certain foods, drinks, or medicines while taking your antibiotics. ? If you need to watch for any side effects. ??? Use only the antibiotics prescribed to you by your health care provider. Do not use antibioticsprescribed for someone else. ??? Drink a large glass of water when taking your antibiotics unless told otherwise. Drink enough fluid to keep your urine pale yellow. ??? Ask your pharmacist for a dosage syringe, cup, or spoon that correctly measures your antibiotics. ??? Ask your pharmacist or health care provider how to safely get rid of leftover medicine. Follow these instructions at home: ??? Take your antibiotics as told by your health care provider. Do not stop taking your antibioticseven if you start to feel better. ??? Return to your normal activities as told by your health care provider. Ask your health care provider what activities are safe for you. Contact a health care provider if: ??? Your symptoms get worse. ??? You have new joint pain or muscle aches that begin after starting your antibiotic. ??? You have side effects from your antibiotic, such as: ? Stomach pain. ? Diarrhea. ? Nausea. ? White patches in your mouth or throat. Get help right away if: ??? You have sig (more content not included)...[facility] 11-23-2024 Miscellaneous Notes* Telephone Encounter - Susie Andino RN - 11/23/2024 2:04 PM EST Contacted pt because last script was sent to pharmacy with 11 refills. Pt stated that the pharmacy didn't have any refills left. Contacted pharmacy and they stated that they did have refills left andwill fill the medication for pt. [facility] [place] Tele[facility] encounter Note* Telephone Encounter - Susie Andino RN - 11/23/2024 2:04 PM EST Contacted pt because last script was sent to pharmacy with 11 refills. Pt stated that the pharmacy didn't have any refills left. Contacted pharmacy and they stated that they did have refills left andwill fill the medication for pt. [facility]02-01-2025 Miscellaneous Notes* Telephone Encounter - Julianna Barnes - 11/19/2024 3:03 PM EST Refill request : carbidopa-levodopa (SINEMET CR) 25-100 mg per CR tablet Last Filled : 08/31/2024 240 tablets +11 refills Refill too soon. Refills remaining at the pharmacy. [facility] [place] Telephone encounter Note* Telephone Encounter - Julianna Barnes - 11/19/2024 3:03 PM EST Refill request : carbidopa-levodopa (SINEMET CR) 25-100 mg per CR tablet Last Filled : 08/31/2024 240 tablets +11 refills Refill too soon. Refills remaining at the pharmacy. [facility]01-06-2025 Miscellaneous Notes* Telephone Encounter - Susie Andino RN - 10/24/2024 2:28 PM EST Verified with pharmacy that they received the midodrine script. Pharmacy is working on filling the medication. [facility] [place] Telephone encounter Note* Telephone Encounter - Susie Andino RN - 10/24/2024 2:28 PM EST Verified with pharmacy that they received the midodrine script. Pharmacy is working on filling the medication. [facility] Hospital Discharge instructions Patient Education 09/27/2024 12:03:21 Indwelling Urinary Catheter Insertion, Care After Indwelling Urinary Catheter Insertion, Care After This sheet gives you information about how to care for yourself after your procedure. Your health care provider may also give you more specific instructions. If you have problems or questions, contact your health care provider. What can I expect after the procedure? After the procedure, it is common to have: Slight discomfort around your urethra where the catheter enters your body. Follow these instructions at home: General instructions Keep the drainage bag at or below the level of your bladder. By doing this, your urine can only drain out instead of going back into your body. Secure the catheter tubing and drainage bag to your leg or thigh to keep it from moving. Check the catheter tubing regularly to make sure there are no kinks or blockages. Take showers daily to keep the catheter clean. Do not take a bath. Do not pull on your catheter. Disconnect the tubing and drainage bag as little as possible. Empty the drainage bag every 2 4 hours, or more often if needed. Do not let the bag get completely full. Wash your hands with soap and water before and after touching the catheter, tubing, or drainage bag. Do not let the drainage bag or catheter tubing touch the floor. Drink enough fluids to keep your urine pale yellow, or as told by your health care provider. How to remove the catheter Remove the catheter only if told by your health care provider. Follow instructions from your healthcare provider about when and how to remove the catheter. For most catheters, you will need to take the following steps: 1.Prepare your supplies. You will need a: Syringe. This would be given to you by your health care provider. Towel. Wastebasket. 2.Empty the drainage bag if needed. 3.Wash your hands with soap and warm water. 4.Remove the tape that secures the catheter to your leg or thigh. 5.Get into a comfortable position, such as: Lying down with your head raised on pillows and your knees pointing to the ceiling. Sitting on a chair or the edge of a bed. 6.Place the towel under you to catch any spilled urine. 7.Put the syringe into the balloon port of the catheter. Use a firm push and twist motion to fit the syringe into the balloon port. 8.The water from the balloon will empty into the syringe. 9.Gently pull out the catheter once the balloon is empty. If the catheter doesn't slide easily, do not use force. Let your health care provider know that youare not able to remove the catheter. 10.Throw the used catheter and the syringe in the wastebasket. 11.Wipe any spilled urine or water with the towel. 12.Wash your hands with soap and warm water. Safety Let your health care provider know if: Your bladder is full, but you are not able to urinate. You have removed the catheter, but you are not able to urinate after 8 hours. Contact a health care provider if: Your urine: ?Looks cloudy. ?Has a bad smell. ?Stops flowing into the drainage bag. Your catheter: ?Gets clogged. ?Starts to leak. You feel pain or pressure in the bladder area. You have back pain. Your drainage bag or tubing looks dirty. Get help right away if: You have a fever or chills. You have severe pain in your back or your lower abdomen. You have warmth, redness, swelling, or pain in the urethra area. You notice blood in your urine. Your catheter gets pulled out. Summary Wash your hands with soap and water before and after touching the catheter, tubing, or drainage bag. Do not pull on your catheter or try to remove it. Keep the drainage bag at or below the level of your bladder, but do not let the drainage bag or catheter tubing touch the floor. Get help right away if you have a fever, chills, or any other signs of infection. This information is not intended to replace advice given to you by your health care provider. Make sure you discuss any questions you have with your health care provider. Document Revised: 12/25/2021 Document Reviewed: 09/20/2021 [place] Patient Education 2021 [employer]. Follow Up Care 08/30/2024 12:29:01 With:LYN MACE PA-C, URL Address: [address] [place] [address]. [place] [address] When:Within 1 Month(s) [facility] 12-10-2024 NotePatient Education Urology Indwelling Urinary Catheter Insertion, Care After This sheet gives you information about how to care for yourself after your procedure. Your health care provider may also give you more specific instructions. If you have problems or questions, contact your health care provider. What can I expect after the procedure? After the procedure, it is common to have: ??? Slight discomfort around your urethra where the catheter enters your body. Follow these instructions at home: General instructions ??? Keep the drainage bag at or below the level of your bladder. By doing this, your urine can onlydrain out instead of going back into your body. ??? Secure the catheter tubing and drainage bag to your leg or thigh to keep it from moving. ??? Check the catheter tubing regularly to make sure there are no kinks or blockages. ??? Take showers daily to keep the catheter clean. Do not take a bath. ??? Do not pull on your catheter. ??? Disconnect the tubing and drainage bag as little as possible. ??? Empty the drainage bag every 2?4 hours, or more often if needed. Do not let the bag get completely full. ??? Wash your hands with soap and water before and after touching the catheter, tubing, or drainagebag. ??? Do not let the drainage bag or catheter tubing touch the floor. ??? Drink enough fluids to keep your urine pale yellow, or as told by your health care provider. How to remove the catheter Remove the catheter only if told by your health care provider. Follow instructions from your healthcare provider about when and how to remove the catheter. For most catheters, you will need to take the following steps: 1. Prepare your supplies. You will need a: ??? Syringe. This would be given to you by your health care provider. ??? Towel. ??? Wastebasket. 2. Empty the drainage bag if needed. 3. Wash your hands with soap and warm water. 4. Remove the tape that secures the catheter to your leg or thigh. 5. Get into a comfortable position, such as: ??? Lying down with your head raised on pillows and your knees pointing to the ceiling. ??? Sitting on a chair or the edge of a bed. 6. Place the towel under you to catch any spilled urine. 7. Put the syringe into the balloon port of the catheter. Use a firm push and twist motion to fit the syringe into the balloon port. 8. The water from the balloon will empty into the syringe. 9. Gently pull out the catheter once the balloon is empty. ??? If the catheter doesn't slide easily, do not use force. Let your health care provider know thatyou are not able to remove the catheter. 10. Throw the used catheter and the syringe in the wastebasket. 11. Wipe any spilled urine or water with the towel. 12. Wash your hands with soap and warm water. Safety Let your health care provider know if: ??? Your bladder is full, but you are not able to urinate. ??? You have removed the catheter, but you are not able to urinate after 8 hours. Contact a health care provider if: ??? Your urine: ? Looks cloudy. ? Has a bad smell. ? Stops flowing into the drainage bag. ??? Your catheter: ? Gets clogged. ? Starts to leak. ??? You feel pain or pressure in the bladder area. ??? You have back pain. ??? Your drainage bag or tubing looks dirty. Get help right away if: ??? You have a fever or chills. ??? You have severe pain in your back or your lower abdomen. ??? You have warmth, redness, swelling, or pain in the urethra area. ??? You notice blood in your urine. ??? Your catheter gets pulled out. Summary ??? Wash your hands with soap and water before and after touching the catheter, tubing, or drainagebag. ??? Do not pull on your catheter or try to remove it. ??? Keep the drainage bag at or below the level of your bladder, but do not let the drainage bag orcatheter tubing touch the floor. ??? Get help right away if you have a fever, chills, or any other signs of infection. This information is not intended to replace advice given to you by your health care provider. Make sure you discuss any questions you have with your health care provider. Document Revised: 12/25/2021 Document Reviewed: 09/20/2021 [place] Patient Education ? 2021 [employer].[facility] 09-26-2024 Miscellaneous Notes* Telephone Encounter - Susie Andino RN - 09/26/2024 2:18 PM EST medication: midodrine (PROAMATINE) 5 mg tablet Last filled: 12/11/23 Last seen: 08/23/24 Next visit: Not scheduled Reviewed by RN. Pended for signature. According to office note from 08/23/24 Midodrine (Patient not taking: Reported on 08/23/2024) Please advise. [facility] [place] Telephone encounter Note* Telephone Encounter - Susie Andino RN - 09/26/2024 2:18 PM EST medication: midodrine (PROAMATINE) 5 mg tablet Last filled: 12/11/23 Last seen: 08/23/24 Next visit: Not scheduled Reviewed by RN. Pended for signature. According to office note from 08/23/24 Midodrine (Patient not taking: Reported on 08/23/2024) Please advise. [facility]12-[facility]24 Miscellaneous Notes* Telephone Encounter - Susie Andino RN - 09/25/2024 4:07 PM EST medication: sumatriptan (IMITREX) 50 mg tablet Last filled: 05/25/24 Last seen: 08/23/24 Next visit: not scheduled Reviewed by RN. Pended for signature. [facility] [place] Miscellaneous Notes* Telephone Encounter - Susie Andino RN - 09/25/2024 4:07 PM EST medication: tramadol 50 mg tablet Last filled: 08/03/24 Last seen: 08/23/24 Next visit: not scheduled Reviewed by RN. Pended for signature. [facility] [place] Telephone encounter Note* Telephone Encounter - Susie Andino RN - 09/25/2024 4:07 PM EST medication: sumatriptan (IMITREX) 50 mg tablet Last filled: 05/25/24 Last seen: 08/23/24 Next visit: not scheduled Reviewed by RN. Pended for signature. [facility]-2024 Telephone encounter Note* Telephone Encounter - Susie Andino RN - 09/25/2024 4:07 PM EST medication: tramadol 50 mg tablet Last filled: 08/03/24 Last seen: 08/23/24 Next visit: not scheduled Reviewed by RN. Pended for signature. [facility] Miscellaneous Notes* Telephone Encounter - Susie Andino RN - 08/29/2024 3:42 PM EST medication: Carbidopa-levodopa (SINEMET CR) 25-100 mg per CR tablet Last filled: 08/07/23 Last seen: 08/23/24 Next visit: 09/06/24 Reviewed by RN. Pended for signature. documented [facility] [place] Telephone encounter Note* Telephone Encounter - Susie Andino RN - 08/29/2024 3:42 PM EST medication: Carbidopa-levodopa (SINEMET CR) 25-100 mg per CR tablet Last filled: 08/07/23 Last seen: 08/23/24 Next visit: 09/06/24 Reviewed by RN. Pended for signature. [facility] History of Present illness Narrative* Wilber Tipton MD - 08/23/2024 11:30 AM EST Images from the original note were not included. [address] [facility] [address] Patient: Alisia Correa Sr. Date of : 1960 Encounter Date: 08/23/2024 Patient Care Team: Ellen Crabtree DO as PCP - General (Family Medicine) History of Present Illness: Patient is a 63-year-old male with past medical history of Parkinson's onset and diagnosis in 2019 as well as lumbar stenosis status post several back surgeries. Who presents to clinic for routine evaluation. His primary complaint is issues with his dysautonomia. He has episodes of low blood pressure and isscared to ambulate out of his chair because he has had to close calls to falling. At the same time he has also had episodes of high blood pressure where his home health nurse noted that he had blood pressure of 287/100 with worsening of his migraines. Patient has been also having a lot of issues due to not getting out of his chair he has sores as well as recurrent UTIs/dysuria for which a suprapubic catheter was placed. Allergies: Celecoxib, Erythromycin base, Moxifloxacin, Clonazepam, Levofloxacin, Erythromycin, and Pimavanserin Review of Relevant Patient Questionnaires: HIT 6: No data to display PHQ-9: 11/16/2023 1:16 PM 08/11/2022 9:25 AM PM AMB PHQ 9 Little interest or pleasure in doing things 1 1 Feeling down, depressed, or hopeless 1 0 Trouble falling or staying asleep, or sleeping too much 2 2 Feeling tired or having little energy 2 1 Poor appetite or overeating 2 1 Feeling bad about yourself - or that you are a failure or have let yourself or your family down 2 1 Trouble concentrating on things, such as reading the newspaper or watching television 2 1 Moving or speaking so slowly that other people could have noticed. Or the opposite - being so fidgety or restless that you have been moving around a lot more than usual 0 1 Thoughts that you would be better off , or of hurting yourself in some way 0 0 Total Score 12 8 If you checked off any problems, how difficult have these problems made it for you to do your work,take care of things at home, or get along with other people? Not difficult at all Somewhat difficult PHQ-15: No data to display ADRIAN-7: 11/16/2023 1:00 PM 08/11/2022 9:00 AM PM AMB ADRIAN 7 Feeling nervous, anxious or on edge 2 1 Not being able to stop or control worrying 2 1 Worrying too much about different things 2 0 Trouble relaxing 3 0 Being so restless that it is hard to sit still 1 0 Becoming easily annoyed or irritable 3 0 Feeling afraid as if something awful might happen 1 0 ADRIAN-7 Total Score 14 2 PTSD: No data to display [place]: No data to display TONIA-10: No data to display Past Medical, Family, Surgical, and Social History Update: The following portions of the patient's history were reviewed and updated as appropriate: allergies, current medications, past family history, past medical history, past social history, past surgicalhistory and problem list. Past Medical History: Diagnosis Date Diabetes [place] Diabetes mellitus type 2, controlled [place] HL (hearing loss) Hypertension Kidney stones Migraine Parkinson's disease [place] Spinal stenosis No family history on file. Past Surgical History: Procedure Laterality Date BACK SURGERY cervical. plates on 5,6, 7. and lumbar surgery. multiple surgeries and revisions GASTRIC BYPASS due to issues with esophagous HAND SURGERY KIDNEY STONE SURGERY multiple PROSTATE SURGERY REPLACEMENT TOTAL KNEE BILATERAL SHOULDER SURGERY TOE AMPUTATION TOTAL HIP ARTHROPLASTY bilateral TUMOR EXCISION sacral region Current Outpatient Medications Medication Sig Dispense Refill acetaminophen (TYLENOL) 325 mg tablet Take 2 tablets (650 mg total) by mouth every 6 (six) hours asneeded for pain. atorvastatin (LIPITOR) 10 mg tablet Take 1 tablet (10 mg total) by mouth daily. 30 tablet 1 carbidopa-levodopa (SINEMET CR) 25-100 mg per CR tablet TAKE 1 TABLET BY MOUTH AT 2AM, 2 TABLETS AT6AM AND 10AM, 1 TABLET AT 2PM, 6PM, AND 10PM. TAKE WITH SINEMET IR. 240 tablet 11 carbidopa-levodopa (SINEMET) 25-100 mg per tablet TAKE 2 TABLETS BY MOUTH AT 6AM AND 10AM, 1 TAB AT2PM AND 6PM. AVOID PROTEIN 1 HOUR BEFORE OR AFTER EACH DOSE. TAKE ALONG WITH SINEMET CR. 180 [id number] diclofenac (VOLTAREN) 75 mg EC tablet Take 1 tablet (75 mg total) by mouth in the morning and 1 tablet (75 mg total) before bedtime. DULoxetine (CYMBALTA) 60 mg capsule Take 1 capsule (60 mg total) by mouth nightly. ezetimibe (ZETIA) 10 mg tablet Take 1 tablet (10 mg total) by mouth daily. 30 tablet 0 fludrocortisone (FLORINEF) 0.1 mg tablet 2 tabs daily as directed 180 tablet 3 montelukast (SINGULAIR) 10 mg tablet Take 1 tablet (10 mg total) by mouth in the morning. potassium citrate (UROCIT-K) 15 mEq tablet extended release Take 1 tablet (15 mEq total) by mouth in the morning and 1 tablet (15 mEq total) before bedtime. pregabalin (LYRICA) 300 mg capsule Take 1 capsule (300 mg total) by mouth in the morning and 1 capsule (300 mg total) before bedtime. sulfamethoxazole-trimethoprim (BACTRIM DS) 800-160 mg per tablet Take 1 tablet by mouth in the morning and 1 tablet before bedtime. SUMAtriptan (IMITREX) 50 mg tablet Take 1 tablet (50 mg total) by mouth once as needed for migrainefor up to 15 doses. May repeat in 2 hours if unresolved. Do not exceed 200 mg in 24 hours. 15 tablet 0 tolterodine LA (DETROL LA) 4 mg 24 hr capsule Take 1 capsule (4 mg total) by mouth in the morning. traMADoL (ULTRAM) 50 mg tablet Take 1 tablet (50 mg total) by mouth every 6 (six) hours as needed for pain. 120 tablet 5 venlafaxine XR (EFFEXOR-XR) 150 mg 24 hr capsule Take 1 capsule (150 mg total) by mouth in the morning. 90 capsule 3 zinc oxide 20 % ointment Apply 1 Application topically as needed. acarbose (PRECOSE) 25 mg tablet Take 1 tablet (25 mg total) by mouth 3 (three) times a day. (Patient not taking: Reported on 08/23/2024) 90 tablet 1 acetaminophen-caffeine (EXCEDRIN TENSION HEADACHE) 500-65 mg tablet Take 2 tablets by mouth every 6(six) hours as needed (Migraine). (Patient not taking: Reported on 08/23/2024) 90 tablet 0 betamethasone, augmented, (DIPROLENE) 0.05 % cream Apply 1 application topically daily. (Patient not taking: Reported on 08/23/2024) 30 g 0 docusate sodium (COLACE) 100 mg capsule Take 1 capsule (100 mg total) by mouth daily as needed. (Patient not taking: Reported on 08/23/2024) midodrine (PROAMATINE) 5 mg tablet Take 3 tabs by mouth at 8 am, and take 2 tabs at 12 pm and 2 tabs at 6 pm, (Patient not taking: Reported on 08/23/2024) 630 tablet 3 multivitamin capsule Take 1 capsule by mouth in the morning. (Patient not taking: Reported on 08/23/2024) ondansetron (ZOFRAN) 4 mg tablet Take 2 tablets (8 mg total) by mouth every 6 (six) hours as neededfor nausea or vomiting. (Patient not taking: Reported on 08/23/2024) 20 tablet 0 topiramate (TOPAMAX) 100 mg tablet Take 1 tablet (100 mg total) by mouth 2 (two) times a day. (Patient not taking: Reported on 08/23/2024) 60 tablet 1 No current facility-administered medications for this visit. (All medications reviewed and updated by provider since last office visit or hospitalization) Tobacco History: Social History Tobacco Use Smoking Status Every Day Types: Cigarettes Smokeless Tobacco Never Tobacco Comments 8 cigs per day (If patient a smoker, smoking cessation counseling offered) Social History: Social History Substance and Sexual Activity Alcohol Use Not Currently Review of Systems: Review of Systems Constitutional: Positive for appetite change (loss), chills, fatigue, fever and unexpected weight change (gain). Negative for activity change. HENT: Positive for hearing loss, postnasal drip, rhinorrhea, tinnitus, trouble swallowing and voicechange. Negative for drooling. Eyes: Positive for visual disturbance. Respiratory: Positive for cough and shortness of breath. Cardiovascular: Positive for chest pain and leg swelling. Negative for palpitations. Gastrointestinal: Positive for abdominal pain, constipation, diarrhea, nausea and vomiting. Endocrine: Positive for cold intolerance and heat intolerance. Genitourinary: Negative for frequency. ED Musculoskeletal: Positive for arthralgias, back pain, myalgias and neck pain. Skin: Positive for wound. Neurological: Positive for dizziness, tremors, syncope, weakness, light- headedness and headaches. Negative for seizures and numbness. Dyskinesias Muscle jerks Falls (2 falls in past 3 mo) Hematological: Bruises/bleeds easily. Psychiatric/Behavioral: Positive for behavioral problems, confusion, dysphoric mood, hallucinationsand sleep disturbance. Negative for decreased concentration. The patient is nervous/anxious. Physical Exam: Vitals: There were no vitals filed for this visit. Patient consulted for exercise: encouragement to exercise. Neurological Physical Exam: Neurology Physical Exam A&O times 3 4/5 strength in bilateral upper extremities slightly weaker on the right 1/5 strength in bilateral hip flexors 4/5 strength distally with limited right ankle dorsiflexion Difficulty getting up out of chair utilizes arms to elevate. Suprapubic catheter Assessment and Plan: There are no diagnoses linked to this encounter. Problem List None We suspect that this patient is having a lot of issues due to his to dysautonomia. We have previously given Midodrine throughout the day however he is having episodes of high blood pressure with headaches. We will refer him to the dysautonomia Clinic for evaluation of possible pacer placement. Wilber Bowden MD This note was created with the assistance of a speech recognition program. While intending to generate a timely document that accurately reflects the content of the visit, no guarantee can be provided that every grammatical or spelling mistake has been or will be identified or corrected. Thank you for your understanding. * Samira Bowden MD - 08/23/2024 11:30 AM EST Attending Attestation: Level of Participation Examined and discussed the patient (preceptor present). Agreement I agree with resident management. Attending Note I reviewed the resident's documentation and agree with the findings, assessment and plan Comments/Additional Findings: HPI: none EXAM:none Assessment and Diagnosis: none Plan of Care: none documented in this encounterFairfield Medical Centerbabbel [facility] [id number] Hospital Discharge instructions Follow Up Care 08/09/2024 15:03:40 With:LYN MACE PA-C, URL Address: [address] [place] [id number] When: Unknown [facility] 10-13-2024 Miscellaneous Notes* Telephone Encounter - Susie Andino RN - 07/31/2024 1:31 PM EDT Refill request : tramadol 50mg Last Filled : 04/13/24 Last Office Visit :11/16/23 Next Office Visit : 08/23/24 Reviewed by RN. Pend for signature. * Telephone Encounter - Reena Cervantes APRN-RESIDENTIAL CHILD CARE COUNSELOR - 07/31/2024 1:31 PM EDT Pt is schedule for follow up with Dr Bowden in August. Sending to him for approval and signature [facility] [place] Telephone encounter Note* Telephone Encounter - Susie Andino RN - 07/31/2024 1:31 PM EDT Refill request : tramadol 50mg Last Filled : 04/13/24 Last Office Visit :11/16/23 Next Office Visit : 08/23/24 Reviewed by RN. Urbano for signature. [facility]-13-2024 Telephone encounter Note* Telephone Encounter - REGAN Morales - 07/31/2024 1:31 PM EDT Pt is schedule for follow up with Dr Bowden in August. Sending to him for approval and signature [facility]09-26-2024 Miscellaneous Notes* Telephone Encounter - Rachel Mixon CMA - 07/14/2024 1:37 PM EDT Refill request: Med: fludrocortisone (FLORINEF) 0.1 mg tablet Si tabs daily as directed Last seen:11/16/23 With Kathy Cervantes Next visit:08/23/[address] Bowden Last filled: 02/23/23 - 90 day supply with 3 refills to [facility] Pharmacy: [facility] documented in this encounter[facility] [place] Telephone encounter Note* Telephone Encounter - Rachel Mixon CMA - 07/14/2024 1:37 PM EDT Refill request: Med: fludrocortisone (FLORINEF) 0.1 mg tablet Si tabs daily as directed Last seen:11/16/23 With Kathy Cervantes Next visit:08/23/[address] Bowden Last filled: 02/23/23 - 90 day supply [facility] [place]-06-2024 Miscellaneous Notes* Telephone Encounter - Julianna Barnes - 05/24/2024 4:47 PM EDT Refill request : SUMAtriptan (IMITREX) 50 mg tablet Last Filled : 02/23/2024 Last OV : 11/16/2023 Next OV : 08/23/2024 Reviewed by SECURITY DISPATCHER. Pend for signature. documented in this encounterSelect [facility] [place] Telephone encounter Note* Telephone Encounter - Julianna Barnes - 05/24/2024 4:47 PM EDT Refill request : SUMAtriptan (IMITREX) 50 mg tablet Last Filled : 02/23/2024 Last OV : 11/16/2023 Next OV : 08/23/2024 Reviewed by SECURITY DISPATCHER. Pend for signature. [facility] [place] Miscellaneous Notes* Telephone Encounter - Julianna Barnes - 04/11/2024 11:33 AM EDT Refill request : tramadol (Ultram) 50 mg tablet Last Filled : 11/16/2023 Last OV : 11/16/2023 Next OV : None mentioned in last OV note. The [place]AR[place] database was reviewed today and found to be appropriate. No indication of medication diversion, or non compliance. Reviewed by SECURITY DISPATCHER. Pend for signature. * Telephone Encounter - Rosa Neil - 04/11/2024 11:33 AM EDT Patient is scheduled for the following appointment: With Neurology (Samira Bowden MD) 08/23/2024 at 11:30 AM documented in this encounterSelect [facility] [place] Telephone encounter Note* Telephone Encounter - Julianna Barnes - 04/11/2024 11:33 AM EDT Refill request : tramadol (Ultram) 50 mg tablet Last Filled : 11/16/2023 Last OV : 11/16/2023 Next OV : None mentioned in last OV note. The OAS database was reviewed today and found to be appropriate. No indication of medication diversion, or non compliance. Reviewed by SECURITY DISPATCHER. Pend for signature. [facility] [place]-24-[facility]24 Telephone encounter Note* Telephone Encounter - Rosa Neil - 04/11/2024 11:33 AM EDT Patient is scheduled for the following appointment: With Neurology (Samira Bowden MD) 08/23/2024 at 11:30 AM [facility] [place]-10-2024 Miscellaneous Notes* Telephone Encounter - Rachel Mixon CMA - 03/28/2024 3:59 PM EDT Received PT progress note from [facility] dated 03/24/24. Placed in provider's folder for signature. Platform Loader will return fax upon completion. documented in this encounterSelect [facility] [place]-2024 Telephone encounter Note* Telephone Encounter - Rachel Mixon CMA - 03/28/2024 3:59 PM EDT Received PT progress note from [facility] dated 03/24/24. Placed in provider's folder for signature. Platform Loader will return fax upon completion. [facility] [place] Evaluation + Plan note* Assessment & Plan Note - Heidy Marin MD - 03/17/2024 11:58 AM EDTAssociated Problem(s): Critical limb ischemia of both lower extremities with gangrene (CMS-HCC) His blood flow is normal down to the ankle. 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 To: ELLEN CRABTREE, DO HPI: Alisia Correa Sr. is a 63 y.o. male with ex-smoker with bilateral lower extremity toe wounds that are nonhealing. He does not have arterial testing. Also he does not have abdominal aortic screening. He is on statin. He has in a wheelchair with multiple medical problems including Shy-Drager syndrome and Parkinson's diseaseHis ANUJA PVR with toe pressures shows normal ABIs bilaterally. His bloodflow is normal down to the ankle. 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 Review of Systems: Review of Systems Constitutional: Negative. HENT: Negative. Respiratory: Negative. Cardiovascular: Negative. Gastrointestinal: Negative. Endocrine: Negative. Genitourinary: Negative. Musculoskeletal: Negative. Skin: Negative. Neurological: Negative. Hematological: Negative. Medications: Current Outpatient Medications on File Prior to Visit Medication Sig Dispense Refill acarbose (PRECOSE) 25 [...] tablet (10 mg total) by mouth daily. (Patient taking differently: Take 1 tablet (10 mg total) by mouth nightly.) 30 tablet 1 betamethasone, augmented, (DIPROLENE) 0.05 % cream Apply 1 application topically daily. 30 g 0 carbidopa-levodopa (SINEMET CR) 25-100 mg per CR tablet TAKE 1 TABLET BY MOUTH AT 2AM, 2 TABLETS AT6AM AND 10AM, 1 TABLET AT 2PM, 6PM, AND 10PM. TAKE WITH SINEMET IR. 240 tablet 11 carbidopa-levodopa (SINEMET) 25-100 mg per tablet TAKE 2 TABLETS BY MOUTH AT 6AM AND 10AM, 1 TAB AT2PM AND 6PM. AVOID PROTEIN 1 HOUR BEFORE OR AFTER EACH DOSE. TAKE ALONG WITH SINEMET CR. 180 [id number] diclofenac (VOLTAREN) 75 mg EC tablet Take 1 tablet (75 mg total) by mouth in the morning and 1 tablet (75 mg total) before bedtime. docusate sodium (COLACE) 100 mg capsule Take 1 capsule (100 mg total) by mouth daily as needed. DULoxetine (CYMBALTA) 60 mg capsule Take 1 capsule (60 mg total) by mouth nightly. ezetimibe (ZETIA) 10 mg tablet Take 1 tablet (10 mg total) by mouth daily. (Patient taking differently: Take 1 tablet (10 mg total) by mouth nightly.) 30 tablet 0 fludrocortisone (FLORINEF) 0.1 mg tablet 2 tabs daily as directed 180 tablet 3 midodrine (PROAMATINE) 5 mg tablet Take 3 tabs by mouth at 8 am, and take 2 tabs at 12 pm and 2 tabs at 6 pm, 630 tablet 3 montelukast (SINGULAIR) 10 mg tablet Take 1 tablet (10 mg total) by mouth in the morning. multivitamin capsule Take 1 capsule by mouth in the morning. ondansetron (ZOFRAN) 4 mg tablet Take 2 tablets (8 mg total) by mouth every 6 (six) hours as neededfor nausea or vomiting. 20 tablet 0 potassium citrate (UROCIT-K) 15 mEq tablet extended release Take 1 tablet (15 mEq total) by mouth in the morning and 1 tablet (15 mEq total) before bedtime. pregabalin (LYRICA) 300 mg capsule Take 1 capsule (300 mg total) by mouth in the morning and 1 capsule (300 mg total) before bedtime. SUMAtriptan (IMITREX) 50 mg tablet Take 1 tablet (50 mg total) by mouth once as needed for migrainefor up to 15 doses. May repeat in 2 hours if unresolved. Do not exceed 200 mg in 24 hours. 15 tablet 0 tolterodine LA (DETROL LA) 4 mg 24 hr capsule Take 1 capsule (4 mg total) by mouth in the morning. topiramate (TOPAMAX) 100 mg tablet Take 1 tablet (100 mg total) by mouth 2 (two) times a day. 60 tablet 1 venlafaxine XR (EFFEXOR-XR) 150 mg 24 hr capsule Take 1 capsule (150 mg total) by mouth in the morning. 90 capsule 3 No current facility-administered medications on file prior to visit. Past Medical History: Past Medical History: Diagnosis Date Diabetes [place] Diabetes mellitus type 2, controlled [place] HL (hearing loss) Hypertension Kidney stones Migraine Parkinson's disease [place] Spinal stenosis Past Surgical History: Past Surgical History: Procedure Laterality Date BACK SURGERY cervical. plates on 5,6, 7. and lumbar surgery. multiple surgeries and revisions GASTRIC BYPASS due to issues with esophagous HAND SURGERY KIDNEY STONE SURGERY multiple PROSTATE SURGERY REPLACEMENT TOTAL KNEE BILATERAL SHOULDER SURGERY TOE AMPUTATION TOTAL HIP ARTHROPLASTY bilateral TUMOR EXCISION sacral region Social and Family History: Social History Socioeconomic History Marital status: Spouse name: Not on file Number of children: Not on file Years of education: Not on file Highest education level: Not on file Occupational History Not on file Tobacco Use Smoking status: Every Day Types: Cigarettes Smokeless tobacco: Never Tobacco comments: 8 cigs per day Vaping Use Vaping status: Never Used Substance and Sexual Activity Alcohol use: Not Currently Drug use: Not Currently Sexual activity: Defer Other Topics Concern Not on file Social History Narrative Not on file Social Determinants of Health Financial Resource Strain: Low Risk (11/25/2022) Received from [facility] Overall Financial Resource Strain (CARDIA) Difficulty of Paying Living Expenses: Not very hard Food Insecurity: No Food Insecurity (01/28/2024) Hunger Screening Food Insecurity - Worry: Never True Food Insecurity - Inability: Never True Transportation Needs: No Transportation Needs (11/25/2022) Received from [facility] PRAPARE - Transportation Lack of Transportation (Medical): No Lack of Transportation (Non-Medical): No Physical Activity: Not on file Stress: Not on file Social Connections: Not on file Interpersonal Safety: Not on file Housing Instability: Low Risk (11/25/2022) Received from [facility] Housing Stability Vital Sign Unable to Pay for Housing in the Last Year: No Number of Places Lived in the Last Year: 2 In the last 12 months, was there a time when you did not have a steady place to sleep or slept in ashelter (including now)?: No No family history on file. Recent Labs: Recent and relative labs were reviewed and interpreted and contributed to the assessment and plan below. Vitals: There were no vitals taken for this visit. There is no height or weight on file to calculate BMI. Physical Exam: Physical Exam Constitutional: Appearance: Normal appearance. HENT: Head: Normocephalic and atraumatic. Mouth/Throat: Mouth: Mucous membranes are moist. Eyes: Extraocular Movements: Extraocular movements intact. Pupils: Pupils are equal, round, and reactive to light. Cardiovascular: Rate and Rhythm: Normal rate and regular rhythm. Pulmonary: Effort: Pulmonary effort is normal. Breath sounds: Normal breath sounds. Abdominal: General: Abdomen is flat. Bowel sounds are normal. Palpations: Abdomen is soft. Musculoskeletal: General: Normal range of motion. Cervical back: Normal range of motion. Skin: General: Skin is warm and dry. Neurological: General: No focal deficit present. Mental Status: He is alert and oriented to person, place, and time. Mental status is at baseline. Psychiatric: Mood and Affect: Mood normal. Behavior: Behavior normal. Thought Content: Thought content normal. Judgment: Judgment normal. Recent testing: ANUJA with PVR Assessment and Plan: Problem List Critical limb ischemia of both lower extremities with gangrene (CMS-HCC) - Primary Overview Bilateral toe wounds nonhealing, no PVR or testing Current Assessment & Plan His blood flow is normal down to the ankle. 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 Diagnoses and all orders for this visit: Critical limb ischemia of both lower extremities with gangrene (CMS-HCC) Heidy Marin MD, TESSIE, RPVI, FSVS, FACS [facility] This note was created with the assistance of a speech recognition program. While intending to generate a timely document that accurately reflects the content of the visit, no guarantee can be provided that every grammatical or spelling mistake has been or will be identified or corrected. Thank you for your understanding. documented in this encounterFairfield Medical Centerbabbel [facility] [id number] Hospital Discharge instructions Patient Education 03/15/2024 13:28:21 [...] about 300 mg of calcium at each meal.Foods that contain 200 500 mg of calcium a serving include: ?8 oz (237 mL) of milk, bwrymdy-qqezkdovqmzz-lyrun milk, and calcium- fortifiedfruit juice. Calcium-fortified means that calcium has been [...] the table and allow each person to addtheir own salt to taste. Use vegetable protein, such as beans, textured vegetable protein (TVP), or tofu, instead of meat inpasta, casseroles, and soups. Meal planning Eat less salt, if told by your dietitian. To do this: ?Avoid eating processed or pre-made food. ?Avoid eating fast food. Eat less animal protein, including cheese, meat, poultry, or fish, if told by your dietitian. To dothis: ?Limit the number of times you have meat, poultry, fish, or cheese each week. Eat a diet free of meat at least 2 days a week. ?Eat only one serving each day of meat, poultry, fish, or seafood. ?When you prepare animal proteins, cut pieces into small portion sizes. For most meat and fish, oneserving is about the size of the palm [...] ?Spinach (cooked), rhubarb, beets, sweet potatoes, and [place] chard. ?Peanuts. ?Potato chips, czech fries, and baked potatoes with skin on. ?Nuts and nut products. ?Chocolate. If you regularly take a diuretic medicine, make sure to eat at least 1 or 2 servings of fruits or vegetables that are high in potassium each day. These include: ?Avocado. ?Banana. ?[place], prune, carrot, or tomato juice. ?Baked potato. [...] magnesium, fish oil, or vitamin B6. Take xazv-bmq-urrbngp and prescription medicines only as told by [...] Casseroles. Pizza. Lasagna. Frozen meals. Potato chips. Ukrainian fries. The items listed above may not be a complete list of foods and beverages you should limit. Contact a dietitian for more information. What foods should I avoid? Talk to your dietitian about specific foods you should avoid based on the type of kidney stones youhave and your overall health. Fruits Grapefruit. The item listed above may not be a complete list of foods and beverages you should avoid. Contact adietitian for more information. Summary Kidney stones are [...] provider. Document Revised: 01/15/2023 Document Reviewed: 01/15/2023 [employer] Patient Education 2022 [employer]. 03/15/2024 13:28:17 Antibiotic Medicine, Adult Antibiotic Medicine, [...] waits for your results from any tests forpossible infection. Tests may include a culture of your throat, urine, blood, or mucus. Your healthcare provider may change or stop your antibiotic [...] antibiotic for as long as told by yourhealth care provider. Do not stop taking it even if you start to feel better. If you stop taking ittoo soon: You may start to feel sick [...] in the future with bacteria that do notrespond to medicine (antibiotic-resistant infection). Antibiotics can cause bacteria to change so that if the antibiotic is taken again, the medicine cannot kill the bacteria. These infections can bemore serious and, in some cases, life-threatening. Do [...] medicine. Follow these instructions at home: Take gpps-wrr-ehnifwn and prescription medicines as told by your [...] by bacteria. It is important that you takeantibiotic medicines safely and only when needed. Your health care provider may change or stop your antibiotic depending on your results from certaintests. Finish all antibiotic medicine even when you start to feel better. This information is not intended to replace advice given to you by your health care provider. Make sure you discuss any questions you have with your health care provider. Document Revised: 11/19/2020 Document Reviewed: 07/24/2020 [employer] Patient Education 2022 [employer]. 03/15/2024 13:27:57 Kidney Stones, Bemb-qn-Bibo Kidney Stones Kidney stones are rock-like masses [...] Follow these instructions at home: Medicines Take sfwm-wjk-oqbcuet and prescription medicines only as told by [...] provider. Document Revised: 06/09/2022 Document Reviewed: 06/09/2022 [employer] Patient Education 2022 [employer]. 03/15/2024 13:27:55 Benign Prostatic Hyperplasia Benign Prostatic Hyperplasia Benign prostatic hyperplasia (BPH) is an enlarged prostate gland that is caused by the normal agingprocess. The prostate may get bigger as a man gets older. The condition is not caused by cancer. The prostate is a walnut-sized gland that is involved in the production of semen. It is located in front of the rectum and below the bladder. The bladder stores urine. The urethra carries stored urine ou t of the body. An enlarged prostate can press on the urethra. This can make it harder to pass urine. The buildup of urine in the bladder can cause infection. Back pressure and infection may progress to bladder damage and kidney (renal) failure. What are the causes? This condition is part of the normal aging process. However, not all men develop problems from thiscondition. If the prostate enlarges away from the [...] urethra. Follow these instructions at home: Take xtfk-teu-aglxgyt and prescription medicines only as told by [...] provider. Document Revised: 04/23/2022 Document Reviewed: 04/23/2022 [employer] Patient Education 2022 [employer]. [facility] 05-09-2024 Miscellaneous Notes* Telephone Encounter - Rachel Mixon CMA - 02/25/2024 8:54 AM EDT Received LIP READING TEACHER [facility] Will have provider review andsign. Will return fax. documented in [facility] encounter[facility] [place] Telephone encounter Note* Telephone Encounter - Rachel Mixon CMA - 02/25/2024 8:54 AM EDT Received LIP READING TEACHER Progress note from [facility] dated 02/25/24. Will have provider review andsign. Will return fax. [facility]05-06-2024 Miscellaneous Notes* Telephone Encounter - Julianna Barnes - 02/22/2024 4:55 PM EDT Refill request : SUMAtriptan (IMITREX) 50 mg tablet Last filled : 02/15/2024 Printed not signed by ordering provider Last OV : 11/16/2023 Next OV : None mentioned in last OV note. Reviewed by SECURITY DISPATCHER. Pend for signature. documented in this encounterSelect Medical [facility] [place]-06-2024 Telephone encounter Note* Telephone Encounter - Julianna Barnes - 02/22/2024 4:55 PM EDT Refill request : SUMAtriptan (IMITREX) 50 mg tablet Last filled : 02/15/2024 Printed not signed by ordering provider Last OV : 11/16/2023 Next OV : None mentioned in last OV note. Reviewed by ANDRE. Pend for signature. [facility]05-02-2024 Miscellaneous Notes* Telephone Encounter - Rachel Mixon CMA - 02/18/2024 4:03 PM EDT Received LIP READING TEACHER [facility]. Will have provider review and sign. Will return fax. documented in this encounterSelect [facility] [place]-02-2024 Telephone encounter Note* Telephone Encounter - Rachel Mixon CMA - 02/18/2024 4:03 PM EDT Received LIP READING TEACHER [facility]. Will have provider review and sign. Will return fax. [facility]04-29-2024 Miscellaneous Notes* Telephone Encounter - Rachel Mixon CMA - 02/15/2024 4:22 PM EDT [facility] Note placed in Kathy's folder for review and signature. Will return fax upon completion. documented in this encounterSelect [facility] [place]04-29-2024 Telephone encounter Note* Telephone Encounter - Rachel Mixon CMA - 02/15/2024 4:22 PM EDT Received PT Progress Note from [facility] rehab services. Note placed in Kathy's folder for review and signature. Will return fax upon completion. [facility] [place]04-25-2024 History and physical note Author Bernice Shrestha [facility] February 11, 2024 8:20am Note Date/Time February 11, 2024 8:2 0am [facility] [address] [place] [address] Gastroenterology H&P Signed Patient: Alisia Correa SR MR#: [id number] : 1960 Acct:[id number] Age/Sex: 63 / M Adm Date: 4 Loc: Room: Type: [facility] Attending Dr: Bernice Shrestha DO Copies to: Ellen Crabtree,DO Bernice Shrestha, DO~ Date of Service: 02/11/2024 HISTORY & [...] By: <Electronically signed by Bernice Shrestha DO> 02/11/2420 [facility] Work Phone: [phone]) 713-209604-25-2024 [facility]The [facility]04-[facility]-2024 Miscellaneous Notes* Telephone Encounter - Julianna Barnes - 02/09/2024 6:56 PM EDT Refill request : SUMAtriptan (IMITREX) 50 mg tablet Last filled : 09/03/2023 Last OV : 11/16/2023 Next OV : No follow up mentioned in last OV note. Reviewed by Pay Station Collector. Pend for signature. documented in this encounterFairfield [facility] Center[facility] [id number] Telephone encounter Note* Telephone Encounter - Julianna Barnes - 02/09/2024 6:56 PM EDT Refill request : SUMAtriptan (IMITREX) 50 mg tablet Last filled : 09/03/2023 Last OV : 11/16/2023 Next OV : No follow up mentioned in last OV note. Reviewed by Pay Station Collector. Pend for signature. [facility] Miscellaneous Notes* Telephone Encounter - Rachel Mixon CMA - 01/28/2024 10:26 AM EDT Received Information for scheduling a Modified Barium Swallow form from the [facility] scheduled for 02/16/24 at 11:00am. Scanned and attached to this encounter and placed in SECURITY DISPATCHER's folder for completion. Platform Loader will fax upon completion. * Telephone Encounter - Julianna Barnes - 01/28/2024 10:26 AM EDT Noted. * Telephone Encounter - Julianna Barnes - 01/28/2024 10:26 AM EDT Documentation completed and placed with STILL OPERATOR for faxing. documented in this encounterSelect [facility] [place]04-11-2024 Telephone encounter Note* Telephone Encounter - Rachel Mixon CMA - 01/28/2024 10:26 AM EDT Received Information for scheduling a Modified Barium Swallow form from the [facility] scheduled for 02/16/24 at 11:00am. Scanned and attached to this encounter and placed in SECURITY DISPATCHER's folder for completion. Platform Loader will fax upon completion. [facility] [place]04-11-2024 Telephone encounter Note* Telephone Encounter - Julianna Barnes - 01/28/2024 10:26 AM EDT Noted. [facility] [place]04-11-2024 Telephone encounter Note* Telephone Encounter - Julianna Barnes - 01/28/2024 10:26 AM EDT Documentation completed and placed with [facility] for faxing. [facility] [place]04-11-2024 Evaluation + Plan note* Assessment & Plan Note - Heidy Marin MD - 01/28/2024 9:41 AM EDTAssociated Problem(s): Critical limb ischemia of both lower extremities with gangrene (CMS-HCC) Bilateral toe wounds nonhealing, no PVR or testing [facility] [place]04-11-2024 Miscellaneous Notes* Assessment & Plan Note - Heidy Marin MD - 01/28/2024 9:41 AM EDTAssociated Problem(s): Critical limb ischemia of both lower extremities with gangrene (CMS-HCC) Bilateral toe wounds nonhealing, no PVR or testing * Assessment & Plan Note - Heidy Marin MD - 01/28/2024 9:40 AM EDT Associated Problem(s): Encounter for screening for abdominal aortic aneurysm (AAA) in patient 50 years of age or older with history of smoking AAA duplex US documented in this encounterSelect [facility] [place]04-11-2024 Evaluation + Plan note* Assessment & Plan Note - Heidy Marin MD - 01/28/2024 9:40 AM EDT Associated Problem(s): Encounter for screening for abdominal aortic aneurysm (AAA) in patient 50 years of age or older with history of smoking AAA duplex US [facility] [place]04-11-2024 History of Present illness Narrative* Heidy Marin MD - 01/28/2024 9:20 AM EDT Images from the original note were not included. To: ELLEN CRABTREE, DO HPI: Alisia Correa Sr. is a 63 y.o. male with ex-smoker with bilateral lower extremity toe wounds that are nonhealing. He does not have arterial testing. Also he does not have abdominal aortic screening. He is on statin. He has in a wheelchair with multiple medical problems including Shy-Drager syndrome and Parkinson's disease. Review of Systems: Review of Systems Constitutional: Negative. HENT: Negative. Respiratory: Negative. Cardiovascular: Negative. Gastrointestinal: Negative. Endocrine: Negative. Genitourinary: Negative. Musculoskeletal: Negative. Skin: Negative. Hematological: Negative. Medications: Current Outpatient Medications on File Prior to Visit Medication Sig Dispense Refill acarbose (PRECOSE) 25 mg tablet Take 1 tablet (25 mg total) by mouth 3 (three) times a day. 90 tablet 1 atorvastatin (LIPITOR) 10 mg tablet Take 1 tablet (10 mg total) by mouth daily. (Patient taking differently: Take 1 tablet (10 mg total) by mouth nightly.) 30 tablet 1 carbidopa-levodopa (SINEMET) 25-100 mg per tablet TAKE 2 TABLETS BY MOUTH AT 6AM AND 10AM, 1 TAB AT2PM AND 6PM. AVOID PROTEIN 1 HOUR BEFORE OR AFTER EACH DOSE. TAKE ALONG WITH SINEMET CR. 180 [id number] diclofenac (VOLTAREN) 75 mg EC tablet Take 1 tablet (75 mg total) by mouth in the morning and 1 tablet (75 mg total) before bedtime. DULoxetine (CYMBALTA) 60 mg capsule Take 1 capsule (60 mg total) by mouth nightly. ezetimibe (ZETIA) 10 mg tablet Take 1 tablet (10 mg total) by mouth daily. (Patient taking differently: Take 1 tablet (10 mg total) by mouth nightly.) 30 tablet 0 midodrine (PROAMATINE) 5 mg tablet Take 3 tabs by mouth at 8 am, and take 2 tabs at 12 pm and 2 tabs at 6 pm, 630 tablet 3 montelukast (SINGULAIR) 10 mg tablet Take 1 tablet (10 mg total) by mouth in the morning. potassium citrate (UROCIT-K) 15 mEq tablet extended release Take 1 tablet (15 mEq total) by mouth in the morning and 1 tablet (15 mEq total) before bedtime. pregabalin (LYRICA) 300 mg capsule Take 1 capsule (300 mg total) by mouth in the morning and 1 capsule (300 mg total) before bedtime. tolterodine LA (DETROL LA) 4 mg 24 hr capsule Take 1 capsule (4 mg total) by mouth in the morning. topiramate (TOPAMAX) 100 mg tablet Take 1 tablet (100 mg total) by mouth 2 (two) times a day. 60 tablet 1 venlafaxine XR (EFFEXOR-XR) 150 mg 24 hr capsule Take 1 capsule (150 mg total) by mouth in the morning. 90 capsule 3 acetaminophen (TYLENOL) 325 mg tablet Take 2 tablets (650 mg total) by mouth every 6 (six) hours asneeded for pain. (Patient not taking: Reported on 01/28/2024) acetaminophen-caffeine (EXCEDRIN TENSION HEADACHE) 500-65 mg tablet Take 2 tablets by mouth every 6(six) hours as needed (Migraine). (Patient not taking: Reported on 01/28/2024) 90 tablet 0 betamethasone, augmented, (DIPROLENE) 0.05 % cream Apply 1 application topically daily. (Patient not taking: Reported on 01/28/2024) 30 g 0 carbidopa-levodopa (SINEMET CR) 25-100 mg per CR tablet TAKE 1 TABLET BY MOUTH AT 2AM, 2 TABLETS AT6AM AND 10AM, 1 TABLET AT 2PM, 6PM, AND 10PM. TAKE WITH SINEMET IR. (Patient not taking: Reported on 01/28/2024) 240 tablet 11 docusate sodium (COLACE) 100 mg capsule Take 1 capsule (100 mg total) by mouth daily as needed. (Patient not taking: Reported on 01/28/2024) fludrocortisone (FLORINEF) 0.1 mg tablet 2 tabs daily as directed (Patient not taking: Reported on 01/28/2024) 180 tablet 3 multivitamin capsule Take 1 capsule by mouth in the morning. (Patient not taking: Reported on 01/28/2024) ondansetron (ZOFRAN) 4 mg tablet Take 2 tablets (8 mg total) by mouth every 6 (six) hours as neededfor nausea or vomiting. (Patient not taking: Reported on 01/28/2024) 20 tablet 0 SUMAtriptan (IMITREX) 50 mg tablet Take 1 tablet (50 mg total) by mouth once as needed for migrainefor up to 15 doses. May repeat in 2 hours if unresolved. Do not exceed 200 mg in 24 hours. (Patientnot taking: Reported on 01/28/2024) 15 tablet 0 traMADoL (ULTRAM) 50 mg tablet Take 1 tablet (50 mg total) by mouth every 6 (six) hours as needed for pain for up to 120 days. (Patient not taking: Reported on 01/28/2024) 120 tablet 3 No current facility-administered medications on file prior to visit. Past Medical History: Past Medical History: Diagnosis Date Diabetes mellitus [place] Diabetes mellitus type 2, controlled [place] HL (hearing loss) Hypertension Kidney stones Migraine Parkinson's disease ([facility]) Spinal stenosis Past Surgical History: Past Surgical History: Procedure Laterality Date BACK SURGERY cervical. plates on 5,6, 7. and lumbar surgery. multiple surgeries and revisions GASTRIC BYPASS due to issues with esophagous HAND SURGERY KIDNEY STONE SURGERY multiple PROSTATE SURGERY REPLACEMENT TOTAL KNEE BILATERAL SHOULDER SURGERY TOE AMPUTATION TOTAL HIP ARTHROPLASTY bilateral TUMOR EXCISION sacral region Social and Family History: Social History Socioeconomic History Marital status: Spouse name: Not on file Number of children: Not on file Years of education: Not on file Highest education level: Not on file Occupational History Not on file Tobacco Use Smoking status: Every Day Types: Cigarettes Smokeless tobacco: Never Tobacco comments: 8 cigs per day Vaping Use Vaping status: Never Used Substance and Sexual Activity Alcohol use: Not Currently Drug use: Not Currently Sexual activity: Defer Other Topics Concern Not on file Social History Narrative Not on file Social Determinants of Health Financial Resource Strain: Low Risk (11/25/2022) Received from [facility] Overall Financial Resource Strain (CARDIA) Difficulty of Paying Living Expenses: Not very hard Food Insecurity: No Food Insecurity (01/28/2024) Hunger Screening Food Insecurity - Worry: Never True Food Insecurity - Inability: Never True Transportation Needs: No Transportation Needs (11/25/2022) Received from [facility] PRAPARE - Transportation Lack of Transportation (Medical): No Lack of Transportation (Non-Medical): No Physical Activity: Not on file Stress: Not on file Social Connections: Not on file Interpersonal Safety: Not on file Housing Instability: Low Risk (11/25/2022) Received from [facility] Housing Stability Vital Sign Unable to Pay for Housing in the Last Year: No Number of Places Lived in the Last Year: 2 In the last 12 months, was there a time when you did not have a steady place to sleep or slept in ashelter (including now)?: No History reviewed. No pertinent family history. Recent Labs: Recent and relative labs were reviewed and interpreted and contributed to the assessment and plan below. Vitals: BP 100/69 (BP Site: Left Arm, BP Postition: Sitting, BP CUFF SIZE: L (13-17 inches)) Ht 177.8 cm (5' 10 ) Wt 95.3 kg (210 lb) BMI 30.13 kg/m Body mass index is 30.13 kg/m . Physical Exam: Physical Exam Constitutional: Comments: He uses wheelchair. HENT: Head: Normocephalic and atraumatic. Mouth/Throat: Mouth: Mucous membranes are moist. Eyes: Extraocular Movements: Extraocular movements intact. Pupils: Pupils are equal, round, and reactive to light. Cardiovascular: Rate and Rhythm: Normal rate and regular rhythm. Pulmonary: Effort: Pulmonary effort is normal. Breath sounds: Normal breath sounds. Abdominal: General: Abdomen is flat. Bowel sounds are normal. Palpations: Abdomen is soft. Musculoskeletal: General: Normal range of motion. Cervical back: Normal range of motion. Skin: General: Skin is warm and dry. Neurological: Mental Status: He is oriented to person, place, and time. Mental status is at baseline. Psychiatric: Mood and Affect: Mood normal. Behavior: Behavior normal. Thought Content: Thought content normal. Judgment: Judgment normal. Recent testing: Assessment and Plan: Problem List Cardiovascular and Mediastinum Critical limb ischemia of both lower extremities with gangrene (CMS-HCC) Overview Bilateral toe wounds nonhealing, no PVR or testing Current Assessment & Plan Bilateral toe wounds nonhealing, no PVR or testing Relevant Orders Vas art doppler lwr bilat mult lev/PVR Other Encounter for screening for abdominal aortic aneurysm (AAA) in patient 50 years of age or older with history of smoking - Primary Current Assessment & Plan AAA duplex US Relevant Orders Vas aorta/iliac duplex complete Aguila was seen today for le pain and swelling. Diagnoses and all orders for this visit: Encounter for screening for abdominal aortic aneurysm (AAA) in patient 50 years of age or older with history of smoking - Vas aorta/iliac duplex complete; Future Critical limb ischemia of both lower extremities with gangrene (CMS-HCC) - Vas art doppler lwr bilat mult lev/PVR; Future Abdominal aortic aneurysm dissection (CMS-HCC) - Vas aorta/iliac duplex complete; Future Heidy Marin MD, TESSIE, RPVI, FSVS, FACS [facility] This note was created with the assistance of a speech recognition program. While intending to generate a timely document that accurately reflects the content of the visit, no guarantee can be provided that every grammatical or spelling mistake has been or will be identified or corrected. Thank you for your understanding. documented in this encounterSelect [facility] [place]03-26-2024 Miscellaneous Notes* Telephone Encounter - Rachel Mixon CMA - 01/12/2024 9:35 AM EDT Received LIP READING TEACHER Initial Eval from [facility] dated 01/06/24. Will have Kathy review and sign. Will return fax. documented in this encounterSelect Medical [facility] [place]03-26-2024 Telephone encounter Note* Telephone Encounter - Rcahel Mixon CMA - 01/12/2024 9:35 AM EDT Received LIP READING TEACHER Initial Eval from [facility] dated 01/06/24. Will have Kathy review and sign. Will return fax. [facility]03-26-2024 Miscellaneous Notes* Telephone Encounter - Rachel Mixon CMA - 01/12/2024 9:[address] request to evaluate and treat from [facility] dated 01/08/24. Will have Sherrieview and sign. Will return fax. documented in this encounterSelect Medical [facility] [place]03-26-2024 Telephone encounter Note* Telephone Encounter - Rachel Mixon CMA - 01/12/2024 9:[address] request to evaluate and treat from [facility] dated 01/08/24. Will have Mollyreview and sign. Will return fax. [facility]03-22-2024 Miscellaneous Notes* Telephone Encounter - Rachel Mixon CMA - 01/08/2024 8:17 AM EDT Received PT Initial Eval from [facility] dated 01/06/24 . Will have Kathy review and sign. Will return fax. documented in this encounterSelect Medical [facility] [place]03-22-2024 Telephone encounter Note* Telephone Encounter - Rachel Mixon CMA - 01/08/2024 8:17 AM EDT Received PT Initial Eval from [facility] dated 01/06/24 . Will have Kathy review and sign. Will return fax. [facility] [place]02-23-2024 Miscellaneous Notes* Telephone Encounter - Fidelia Lagunas - 12/11/2023 8:55 AM EST Refill Request Medication:midodrine (PROAMATINE) 5 mg tablet Strength: Current dose & Frequency: 30 day or 90 day supply: Pharmacy:[address] Request was made by:Patients daughter. Caller [...] mentioned in last ov note. Reviewed by SECURITY DISPATCHER Pend for signature. documented in this encounterFairfield Medical CenterEasy Voyage02-23-2024 Telephone encounter Note* Telephone Encounter - Fidelia Lagunas - 12/11/2023 8:55 AM EST Refill Request Medication:midodrine (PROAMATINE) 5 mg tablet Strength: Current dose & Frequency: 30 day or 90 day supply: Pharmacy:[facility] [address] Request was made by:Patients daughter. Caller states patient Is now out of this medication and the pharmacy needs a new script that reflects the changes that was made at last appointment. Patient now takes a total of 9 pills with the change and that's why patient run our early. Please advise [facility] Telephone encounter Note* Telephone Encounter - Julianna Barnes - 12/11/2023 8:55 AM EST Refill request : midodrine (PROAMATINE) 5 mg tablet Last filled : 09/02/2023 Last OV : 11/16/2023 Next OV : No follow up mentioned in last ov note. Reviewed by SECURITY DISPATCHER Pend for signature. [facility] Evaluation note* Encounter Date Diagnosis Assessment Notes Treatment Notes Treatment Clinical Notes Oct, Arthritis (ICD-10 - M19.90) Oct, Chronic pain syndrome (ICD-10 - G89.4) [facility] Other 01-30-2024 Miscellaneous Notes* Telephone Encounter - Rachel Mixon CMA - 11/17/2023 1:56 PM EST Fidelia received call from patient's son stating that patient needs a refill on C/L IR and they didn't realize that it needed filled until they got home from their appointment yesterday 11/16/23. In [facility], Rx for C/L IR 25-100 mg was written yesterday 11/16/23. 30 day supply with 11 refills. [facility] to verify that [facility] had received Rx. process technician stated they did receive Rx. Called and spoke with patient's Dipti and informed her of Rx. Dipti voiced understanding. Noaction needed. documented in this encounterFairfield Medical CenterEasy [facility]01-30-2024 Telephone encounter Note* Telephone Encounter - Rachel Mixon CMA - 11/17/2023 1:56 PM EST Fidelia received call from patient's son stating that patient needs a refill on C/L IR and they didn't realize that it needed filled until they got home from their appointment yesterday 11/16/23. In [facility], Rx for C/L IR 25-100 mg was written yesterday 11/16/23. 30 day supply with 11 refills. Called [facility] to verify that they had received Rx. process technician stated they did receive Rx. Called and spoke with patient's Dipti and informed her of Rx. Dipti voiced understanding. Noaction needed. [facility] [id number] History of Present illness Narrative* Reena Cervantes APRN-KAUSHAL - 11/16/2023 1:00 PM EST Images from the original note were not included. [address] [facility] [id number] Patient: Alisia Correa Sr. Date of : [...] further dose adjustments He was admitted to [facility]: 11/20/22 to 12/06/22 Mr. Correa, You were [...] Past Medical History: Diagnosis Date Diabetes mellitus [place] Diabetes mellitus type 2, controlled [place] HL (hearing loss) Hypertension Kidney stones Migraine [...] DOSE. TAKE ALONG WITH SINEMET CR. 180 [id number] traMADoL (ULTRAM) 50 mg tablet Take 1 [...] MORALES APRN-CNP 12/07/23 0817 documented in this encounterSelect Medical [facility] [place]01-29-2024 Instructions* Patient Instructions* REGAN Morales - 11/16/2023 [...] some issues with numbness/tingling. documented in this [facility]01-23-2024 Evaluation note* Encounter Date Diagnosis Assessment [...] at this time. This will be monitored [facility] Other 01-22-2024 Evaluation note* Encounter Date Diagnosis Assessment Notes Treatment Notes Treatment Clinical Notes Oct, Arthritis (ICD-10 - M19.90) [facility] Other 01-22-2024 Miscellaneous Notes* Telephone Encounter - Julianna Barnes - 11/09/2023 10:42 AM EST Refill request: Sinemet IR 25-100 mg tablet and Sinemet ER 25- 100 mg tablet Platform Loader phoned patient and patient has refills remaining on both medications at pharmacy. Patient voiced understanding. [facility] Telephone encounter Note* Telephone Encounter - Julianna Barnes - 11/09/2023 10:42 AM EST Refill request: Sinemet IR 25-100 mg tablet and Sinemet ER 25- 100 mg tablet Platform Loader phoned patient and patient has refills remaining on both medications at pharmacy. Patient voiced understanding. [facility] Encounter Date Diagnosis Assessment Notes Treatment Notes Treatment Clinical Notes Sep, Arthritis (ICD-10 - M19.90) [facility] Other 11-29-2023 Evaluation note* Encounter Date Diagnosis Assessment Notes Treatment Notes Treatment Clinical Notes Aug, Anxiety (ICD-10 - F41.9) Aug, Neuropathy (ICD-10 - G62.9) [facility] Other 11-28-2023 Evaluation note* Encounter Date Diagnosis Assessment Notes Treatment Notes Treatment Clinical Notes Aug, Diabetic nephropathy (ICD-10 - E11.21) [facility] Other 11-15-2023 Evaluation note* Encounter Date Diagnosis [...] medrol should help with this as well. [facility] Other 11-07-2023 Evaluation note* Encounter Date Diagnosis Assessment Notes Treatment Notes Treatment Clinical Notes Aug, UTI (urinary tract infection) (ICD-10 - N39.0) Aug, Diarrhea (ICD-10 - R19.7) [facility] Other 09-15-2023 Evaluation note* Encounter Date Diagnosis Assessment Notes Treatment Notes Treatment Clinical Notes Jun, Arthritis (ICD-10 - M19.90) [facility] Other 08-08-2023 Evaluation note* Encounter Date Diagnosis Assessment Notes Treatment Notes Treatment Clinical Notes May, Parkinson disease (ICD-10 - G20) May, Constipation (ICD-10 - K59.00) [facility] Other 08-01-2023 Evaluation note* Encounter Date Diagnosis [...] narcotic induced constipation and he verbalized understanding. [facility] Other 07-10-2023 Evaluation note* Encounter Date Diagnosis Assessment Notes Treatment Notes Treatment Clinical Notes Apr, Hypotestosteronism (ICD-10 - E34.9) [facility] Other 06-02-2023 Hospital Discharge instructions Patient Education [...] and water are not available, use hand website optimization strategist. 3.Draw up sterile water into a syringe [...] and water are not available, use hand website optimization strategist. 2.Disconnect the bag from the catheter and [...] of the following methods: According to the drug discovery informatics specialist's instructions. As told by your health care provider. 7.Let the bag dry completely. Put it in a clean plastic bag before storing it. General tips Always wash your hands before and after caring for your catheter and collection bag. Use a mild, fragrance-free soap. If soap and water are not available, use hand website optimization strategist. Clean the outside of the catheter with [...] provider. Document Revised: 12/13/2020 Document Reviewed: 11/09/2019 [employer] Patient Education 2022 [employer]. Follow Up Care 02/20/2023 10:24:17 With:WALTER YBARRA, Fidel Hinkle, URL Address: [facility] [address] , [place] [address]- When: Unknown [facility] 05-05-2023 Hospital Discharge instructions Patient Education 02/20/2023 [...] Follow these instructions at home: Medicines Take uxce-qie-hxkqfrv and prescription medicines only as told by [...] provider. Document Revised: 06/26/2021 Document Reviewed: 06/26/2021 [employer] Patient Education 2022 Tunesat. Follow Up Care 01/16/2023 11:27:11 With:WALTER YBARRA, Fidel Hinkle, URL Address: [address] [place], [place] [id number]- When: Unknown [facility] 04-14-2023 Hospital Discharge instructions Patient Education 01/30/2023 [...] urethra. Follow these instructions at home: Take ymcg-lwm-hagggbl and prescription medicines only as told by [...] 10/05/2006 Document Revised: 08/30/2019 Document Reviewed: 11/09/2017 [employer] Patient Education 2020 [employer]unesat. 01/30/2023 07:57:19 Indwelling Urinary Catheter Care, Adult, Zcrx-zg-Vrvi Indwelling Urinary Catheter Care, Adult An indwelling [...] not have soap and water, use hand website optimization strategist. Always make sure there are no twists [...] 01/30/2014 Document Revised: 01/27/2020 Document Reviewed: 05/21/2018 [employer] Patient Education 2020 [employer]. 01/30/2023 07:56:45 Benign Prostatic Hyperplasia Benign Prostatic [...] urethra. Follow these instructions at home: Take jlgb-npq-kzkyjqo and prescription medicines only as told by [...] 10/05/2006 Document Revised: 08/30/2019 Document Reviewed: 11/09/2017 [employer] Patient Education 2020 [employer] Follow Up Care 01/27/2023 14:28:53 With:WALTER YBARRA, Fidel Hinkle, URL Address: [facility] [address], [place] [address] [phone] When:Within 3 Week(s) Comments:3 weeks for SP tube change [facility] 04-06-2023 NoteOP Note OPERATION DATE: 01/22/2023 PREOPERATIVE [...] the flexible scope and then passed a 26-Ukrainian resectoscope sheath into the bladder, and then I used the [employer] evacuator and was able to extract all [...] of the incision. I then grasped a 24-Ukrainian two way Carrington catheter in the jaws [...] change his SP tube in the office.[facility] [id number] NoteEXAMINATION: XR CHEST 2 V, 01/20/2023 11:23 [...] authenticated by: SHARRON BENITEZ Date: 2023-01-20 12:49[facility] [id number] Evaluation note* Encounter Date Diagnosis Assessment Notes Treatment Notes Treatment Clinical Notes Dec, Neuropathy (ICD-10 - G62.9) [facility] Other [id number] NoteHNO ID: [id number] Author: Say Reyes APRN.RESIDENTIAL CHILD CARE COUNSELOR Service: ? Author Type: Nurse Practitioner Type: Progress Notes Filed: 12/24/2022 5:59 PM Note Text: The patient did not show up for this appointment.[id number] History of Present illness Narrative* Say Reyes APRN.RESIDENTIAL CHILD CARE COUNSELOR - 12/24/2022 11:30 AM EST The patient did not show up for this appointment. [facility]-2023 NoteL[facility]02-18-2023 Miscellaneous Notes * Telephone Encounter - Zelda Saenz RN - 12/06/2022 1:15 PM EST Drug [facility] pharmacist, Macrina, requests to clarify pt.'s proamatine [...] from CC later today. documented in this encounterHolzer Hospital02-17-2023 NoteL[facility]02-16-2023 NoteL[facility]02-16-2023 NoteL[facility]02-15-2023 NoteL[facility]02-15-2023 Note [facility]02-15-2023 NoteL[facility]02-14-2023 NoteL[facility]02-13-2023 NoteL[facility] 12-01-2022 NoteL[facility]02-13-2023 NoteL[facility]02-12-2023 NoteL[facility]02-11-2023 NoteL[facility]02-11-2023 NoteL[facility]02-10-2023 Note [facility]02-09-2023 NoteL[facility]02-08-2023 NoteO ID: [id number] Author: Antonia Villa RN Service: ? Author Type: Registered Nurse Type: Nursing Progress Note Filed: 11/26/2022 10:03 AM Note Text: Transfer Note: Patient transferred in stable condition. Actions taken: Report given/called to G61 RN.[facility]02-08-2023 NoteL[facility]02-08-2023 NoteL[facility]02-07-2023 NoteL[facility]02-06-2023 NoteL[facility]02-05-2023 Note [facility]02-04-2023 NoteL[facility]02-03-2023 NoteL[facility]02-03-2023 NoteL[facility] 11-20-2022 NoteL[facility]02-02-2023 NoteL[facility]01-30-2023 Evaluation note* Encounter Date Diagnosis Assessment Notes Treatment Notes Treatment Clinical Notes Oct, Orthostatic hypotension (ICD-10 - I95.1) [facility] Other 01-24-2023 Evaluation note* Encounter Date Diagnosis [...] He is symptomatic with dizziness and fatigue. [facility] was contacted and will attempt [...] sympoms. We did attempt to call his network coordinator however nursing staff will need to discuss with Dr. Teran and they have advised that they will call both us and the patient back with an appt and recommendations due to his significant hypotention. [facility] Other 11-15-2022 Evaluation note* Encounter Date Diagnosis [...] Aug, Needs flu shot (ICD-10 - Z23) [facility] Other 11-11-2022 Evaluation note* Encounter Date Diagnosis Assessment Notes Treatment Notes Treatment Clinical Notes Aug, Benign prostatic hyperplasia with lower urinary tract symptoms, symptom details unspecified (ICD-10 - N40.1) [facility] Other 11-10-2022 Evaluation note* Encounter Date Diagnosis Assessment Notes Treatment Notes Treatment Clinical Notes Aug, Benign prostatic hyperplasia with lower urinary tract symptoms, symptom details unspecified (ICD-10 - N40.1) [facility] Other 08-30-2022 Evaluation note* Encounter Date Diagnosis Assessment Notes Treatment Notes Treatment Clinical Notes May, Neuropathy (ICD-10 - G62.9) [facility] Other 08-03-2022 Evaluation note* Encounter Date Diagnosis [...] - N40.1) May, Parkinsonism (ICD-10 - G20) [facility] Other 06-07-2022 Evaluation note* Encounter Date Diagnosis Assessment Notes Treatment Notes Treatment Clinical Notes Mar, Hypotension (ICD-10 - I95.9) [facility] Other 05-03-2022 History of Present illness Narrative* Nevaeh Oviedo RN - 02/18/2022 12:15 PM EDT Discharged with [facility] per cart to [facility]pc with AVS and scripts. * Nevaeh Oviedo RN - 02/18/2022 11:00 AM EDT Report called to [facility]. All Questions answered. Phone number given [...] HOLLY Morejon - 02/17/2022 10:02 AM EDT [facility] ORTHOPEDICS 7K Occupational Therapy Daily Note Time: Time In: 923 Time Out: 1001 Timed Code Treatment Minutes: 38 Minutes Minutes: 38 Date: 02/17/2022 Patient Name: Alisia Correa, Gender: male Room: [address] [place] [address] : 1960 (61 y.o.) Referring Practitioner: Maki [...] Wall PT - 02/16/2022 10:39 AM EDT [facility] INPATIENT PHYSICAL THERAPY DAILY NOTE [place] [...] Ambulation Assistance: Independent Transfer Assistance: Independent Active Control Panel Builder: Yes Additional Comments: pt states d/t PD, he requires assistance with transfers and ambulation; pt hadHH PT 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 Restrictions/Precautions: Restrictions/Precautions: General Precautions,Fall Risk Required Braces [...] to navigate home distances. Additional Goals?: No Retirement Goals Time Frame for custodial goals : N/A due to short ELOS Following session, patient left in safe position with all fall risk precautions in place. * Lulu Chan OT - 02/15/2022 2:57 PM EDT [facility] 7K Occupational Therapy Daily Note Time: Time In: 1452 Time Out: 1520 Timed Code Treatment Minutes: 28 Minutes Minutes: 28 Date: 02/15/2022 Patient Name: Alisia Correa, Gender: male Room: [facility]012-A : 1960 (61 y.o.) Referring Practitioner: [...] with consulting physicians SHRAVAN Pressley * Josue Vaughan, PT - 02/14/2022 3:02 PM EDT [facility] INPATIENT PHYSICAL THERAPY DAILY NOTE [place] [...] Ambulation Assistance: Independent Transfer Assistance: Independent Active Control Panel Builder: Yes Additional Comments: pt states d/t PD, he requires assistance with transfers and ambulation; pt hadHH PT 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 Restrictions/Precautions: Restrictions/Precautions: General Precautions,Fall Risk Required Braces [...] training,Neuromuscular re- education,Pain management,Patient/Caregiver education & haim sorto,Positioning,Safety education & training,Gait training,Endurance training Plan Comment: [...] to navigate home distances. Additional Goals?: No Retirement Goals Time Frame for custodial goals : N/A due to short ELOS [...] HOLLY Mchugh - 02/14/2022 10:57 AM EDT [facility] OCCUPATIONAL THERAPY MISSED TREATMENT NOTE [facility] 7K 7K-12/012-A Date: 02/14/2022 Patient Name: Alisia Correa CSN: [id number] : 1960 (61 y.o.) Gender: male Referring [...] HOLLY Morejon - 02/13/2022 12:33 PM EDT [facility] Occupational Therapy Daily Note Time: Time In: 1109 Time Out: 1135 Timed Code Treatment Minutes: 26 Minutes Minutes: 26 Date: 02/13/2022 Patient Name: Alisia Correa, Gender: male [facility] 1960 (61 y.o.) Referring Practitioner: Maki [...] Vaughan PT - 02/13/2022 11:02 AM EDT [facility] INPATIENT PHYSICAL THERAPY DAILY NOTE [place] [...] Ambulation Assistance: Independent Transfer Assistance: Independent Active Control Panel Builder: Yes Additional Comments: pt states d/t PD, he requires assistance with transfers and ambulation; pt hadHH PT 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 Restrictions/Precautions: Restrictions/Precautions: General Precautions,Fall Risk Required Braces [...] independence withfunctional mobility. Functional Outcome Measures: Completed [facility] Inpatient Mobility without Stair Climbing Raw Score : 15 [facility] Inpatient without Stair Climbing T-Scale Score : [...] to navigate home distances. Additional Goals?: No Turf And Grounds Supervisor Goals Time Frame for custodial goals : N/A due to short ELOS [...] HOLLY Morejon - 02/12/2022 2:39 PM EDT [facility] 7K Occupational Therapy Daily Note Time: Time In: 1356 Time Out: 1439 Timed Code Treatment Minutes: 43 Minutes Minutes: 43 Date: 02/12/2022 Patient Name: Alisia Correa, Gender: male [facility] 1960 (61 y.o.) Referring Practitioner: Maki [...] Patient tolerance of treatment: fair. Discharge Recommendations: Subacute/group home facility and Inpatient Therapy Stay Equipment Recommendations: [...] Status: At risk for malnutrition (Comment) (02/10/22 5435) Context: Acute Illness Findings of the 6 clinical characteristics of malnutrition: Energy Intake: No significant decrease in energy intake Weight Loss: (4.8% wt loss in 18 days however now eating 76-100%) Body Fat Loss: No significant body fat loss Muscle Mass Loss: No significant muscle mass loss Fluid Accumulation: Mild Extremities Sack Keeper Strength: Not Performed Nutrition Assessment: Pt. nutritionally [...] Anthropometric Measures: Height: 5' 10 (177.8 cm) [place] Body Weight (IBW): 166 lbs (75 kg) [...] 1625-1806kcals (18-20kcals/kgm) Weight Used for Protein Requirements: [place] Protein (g/day): 105-150 grams (1.4-2 grams protein/kgm [...] minutes Evelina Parra MD, MD * Samantha Savanna, 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 - 02/12/2022 11:52 AM EDT [facility] INPATIENT PHYSICAL THERAPY DAILY NOTE [place] [...] Ambulation Assistance: Independent Transfer Assistance: Independent Active Control Panel Builder: Yes Additional Comments: pt states d/t PD, he requires assistance with transfers and ambulation; pt hadHH PT 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 Restrictions/Precautions: Restrictions/Precautions: General Precautions,Fall Risk Required Braces [...] to navigate home distances. Additional Goals?: No Retirement Goals Time Frame for watermaster goals : N/A due to short ELOS [...] 02/11/2022 6:16 PM EDT Pt admitted to [facility] via cart/stretcher. Complaints: L2-S1 degenerative disc [...] room. Explained patients right to have family, advertising representative or physician notified of their admission. Patient has Declined for physician to be notified. Patient has Declined for family/advertising representative to be notified. The patient is [facility] in [facility]?: No Policies and procedures for explained. All questions answered with no further questions at this time. Fall prevention and safety brochure discussed with patient. Bed alarm on. Call light in reach. * Peace Alonso RN - 02/11/2022 5:00 PM EDT Call placed to patients Dipti. Updated that the patient is transferring to [facility]. * Pamela Lees, PT - 02/11/2022 3:42 PM EDT [facility] INPATIENT PHYSICAL THERAPY DAILY NOTE [facility] ICU STEPDOWN TELEMETRY K - -025-A Time In: 1330 Time Out: 1353 Timed [...] Ambulation Assistance: Independent Transfer Assistance: Independent Active Control Panel Builder: Yes Additional Comments: pt states d/t PD, he requires assistance with transfers and ambulation; pt hadHH PT 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 Restrictions/Precautions: Restrictions/Precautions: General Precautions,Fall Risk Required Braces [...] to navigate home distances. Additional Goals?: No Turf And Grounds Supervisor Goals Time Frame for custodial goals : N/A due to short ELOS Following session, patient left in safe position with all fall risk precautions in place. * Danica Lopes HOLLY - 02/11/2022 1:02 PM EDT [facility] ICU STEPDOWN TELEMETRY 4K Occupational Therapy Daily Note Time: Time In: 1045 Time Out: 1129 Timed Code Treatment Minutes: 44 Minutes Minutes: 44 Date: 02/11/2022 Patient Name: Alisia Correa, Gender: male Room: [facility] : 1960 (61 y.o.) Referring Practitioner: Maki [...] Status: At risk for malnutrition (Comment) (02/10/22 9915) Context: Acute Illness Findings of the 6 clinical characteristics of malnutrition: Energy Intake: No significant decrease in energy intake Weight Loss: (4.8% wt loss in 18 days however now eating 76-100%) Body Fat Loss: No significant body fat loss Muscle Mass Loss: No significant muscle mass loss Fluid Accumulation: Mild Extremities Sack Keeper Strength: Not Performed Nutrition Assessment: Pt. nutritionally [...] Anthropometric Measures: Height: 5' 10 (177.8 cm) [place] Body Weight (IBW): 166 lbs (75 kg) [...] 1625-1806kcals (18-20kcals/kgm) Weight Used for Protein Requirements: [place] Protein (g/day): 105-150 grams (1.4-2 grams protein/kgm [...] Progress Note PATIENT: ALISIA CORREA CSN #: [id number] : 1960 ADMIT DATE: 02/07/2022 8:09 AM [...] you! Ronny Salcedo, FARIBAN,RN, CRCR RN Clinical Cosmetics Presser P: [phone] Options provided: -- Hypovolemic Shock -- Hypovolemia [...] HOLLY Mchugh - 02/10/2022 2:42 PM EDT [facility] ICU STEPDOWN TELEMETRY 4K Occupational Therapy Daily Note Time: Time In: 1358 Time Out: 1421 Timed Code Treatment Minutes: 23 Minutes Minutes: 23 Date: 02/10/2022 Patient Name: Alisia Correa, Gender: male Room: [address] [place] [address] : 1960 (61 y.o.) Referring Practitioner: Maki [...] Alisia Correa Date of : 1960 Acct: [id number] Admit Date: 02/07/2022 Primary Mail Sorter And Delivery: none Per Dr Schrader's note: REASON FOR [...] EDT Echocardiogram complete at bedside. * Adali Calix, 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 - 02/10/2022 9:53 AM EDT [facility] INPATIENT PHYSICAL THERAPY DAILY NOTE [facility] ICU STEPDOWN TELEMETRY 4K - -A Time In: 08 Time Out: 09 Timed Code Treatment Minutes: 45 Minutes Minutes: [...] Needs assistance Transfer Assistance: Needs assistance Active Control Panel Builder: No Additional Comments: pt states d/t PD, he requires assistance with transfers and ambulation; pt hadHH PT 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 Restrictions/Precautions: Restrictions/Precautions: General Precautions,Fall Risk Required Braces [...] with functional mobility. Functional Outcome Measures: Completed [facility] Inpatient Mobility Raw Score : 12 [facility] Inpatient T-Scale Score : 35.33 ASSESSMENT: Assessment: [...] to navigate home distances. Additional Goals?: No Retirement Goals Time Frame for custodial goals : N/A due to short ELOS [...] Intake/Output Summary (Last 24 hours) at 02/10/2022 2490 Last data filed at 02/10/2022 0547 Gross [...] Progress Note PATIENT: ALISIA CORREA CSN #: [id number] : 1960 ADMIT DATE: 02/07/2022 8:09 AM DISCH DATE: RESPONDING PROVIDER #: DON SINGH PA-C QUERY TEXT: Pt admitted with L2-S1 degenerative disc disease with neuroforaminal stenosis and radiculopathy and L2-L4 central canal stenosis, and underwent surgery on 02/07. 02/07 IM note states, Acute resp failure postop. 02/07 @ 1439: 90% on RA...91% on 6 L; 02/07: weaned to RA; 02/08: 94% on 2 L. If possible, please [...] weaned to RA; 02/0800: 94% on 2 L; PICHARDO, expiratory wheezes Treatment: O2 via NC, Dulera Thank you! Nevaeh Goldsmith, RN, BSN, DIRECTOR EMERGENCY, [employer]S Clinical Cosmetics Presser Options provided: -- Acute pulmonary insufficiency following [...] Alisia Correa Date of : 1960 Acct: [id number] -A Primary Care Physician: ELLEN CRABTREE DO [...] Intake/Output Summary (Last 24 hours) at 02/09/2022 08 Last data filed at 02/09/2022 0515 Gross [...] TROPONINT in the last 72 hours. Imaging: @[id number]@ EKG: Diet: ADULT DIET; Regular; 4 carb choices (60 gm/meal) Data: Scheduled Meds: Scheduled Meds: midodrine 7.5 mg Oral TID WC hydrocortisone sodium succinate PF 100 mg IntraVENous Q8H cosyntropin 250 mcg IntraVENous Once acarbose 25 mg Oral TID atorvastatin 10 mg Oral Nightly mometasone-formoterol 2 puff Inhalation BID DULoxetine 60 mg Oral Nightly metFORMIN 500 mg Oral BID pantoprazole 40 mg Oral Daily QUEtiapine 25 [...] at bedside. Saline bolus ordered and started. 09 BP 70/46 0923 Orders received. Start on telemetry monitoring, CXR, Increase Midodrine to TID, Stat H+H. 0937 Orders received. H+H at 1700, CBC in AM 1007 CXR at bedside. BP 64/45. Hgb 11.4. IM notified. 1023 BP continues to be low. 500mL saline bolus started 1141 BP 85/47 after bolus. Updated RESIDENTIAL CHILD CARE COUNSELOR. 1218 BP 70/38, MD at bedside. [...] Griffin OT - 02/08/2022 1:01 PM EDT [facility] INPATIENT OCCUPATIONAL THERAPY [facility] 7K EVALUATION [...] needing to return to bed from recliner. SECURITY DISPATCHER present to assist. Pain: 12/26 Vitals: Blood [...] Needs assistance Transfer Assistance: Needs assistance Active Control Panel Builder: No Additional Comments: pt states d/t PD, he requires assistance with transfers and ambulation; pt hadHH PT 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 VISION:WFL HEARING: WFL COGNITION: Slow Processing and [...] Pandya, PT - 02/08/2022 10:33 AM EDT [facility] INPATIENT PHYSICAL THERAPY EVALUATION [facility] [...] Assistance: Needs assistance ( assists him) Active Control Panel Builder: No Additional Comments: pt states d/t PD, he requires assistance with transfers and ambulation; pt hadHH PT 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 OBJECTIVE: Range of Motion: Bilateral Lower Extremity: [...] diaphoretic, and lightheaded Functional Outcome Measures: Completed [facility] Inpatient Mobility Raw Score : 11 [facility] Inpatient T-Scale Score : 33.86 ASSESSMENT: Activity [...] to navigate home distances. Additional Goals?: No Turf And Grounds Supervisor Goals Time Frame for watermaster goals : N/A due to short ELOS [...] waiver completed and faxed to pharmacy * Brainne Perez RPH - 02/07/2022 4:29 PM EDT Pharmacy Note Alisia Correa was ordered Zetia 10 mg nightly. Per the [facility] Formulary Committee Policy, this medication is non-formulary [...] room. Explained patients right to have family, advertising representative or physician notified of their admission. Patient has Declined for physician to be notified. Patient has Declined for family/advertising representative to be notified. The patient is interested in [facility] meds to [facility]?: No Policies and procedures for explained. All questions answered with no further questions at this time. Fall prevention and safety brochure discussed with patient. Bed alarm on. Call light in reach. * Kiara Toro RN - 02/07/2022 9:49 AM EDT ADMITTED TO [facility] AND ORIENTED TO UNIT. SCDS ON. FALL AND ALLERGY BANDS ON. PT VERBALIZED APPROVAL FOR FIRST NAME, LAST INITIAL AND PHYSICIAN NAME ON UNIT WHITEBOARD. * Evangelist Cummins - 01/20/2022 9:11 AM EDT Called for PAT reminder Lft Msg. documented in this [facility] Phone: 1(228) 233-328205-03-2022 Hospital Discharge instructions* Discharge Instr - DYLON* [...] directive for healthcare treatment Durable power of assistant prosecuting attorney for health care No, copy requested from family Healthcare power of assistant prosecuting attorney Dipti- -- Admitting Physician: Frank Reddy MD PCP: ELLEN CRABTREE DO Discharging Nurse: Discharging Hospital Unit/Room#: 7K-12/012-A Discharging Unit Phone Number: Emergency Contact: Extended Emergency Contact Information Primary Emergency Contact: Dipti Correa Mobile Relation: Spouse Preferred language: Hebrew Concrete Pile Driver Operator needed? No Past Surgical History: Past Surgical History: Procedure Laterality Date BACK SURGERY x8 CYST REMOVAL spine with back surgery ESOPHAGUS SURGERY for cancer HAND SURGERY x3 HIP ARTHROPLASTY Bilateral KNEE ARTHROPLASTY Bilateral left x2 LUMBAR FUSION N/A 02/07/2022 L2-S1 DECOMPRESSION L2-S1 POSTERIOR FUSION WITH ILIAC BOLTS, L5-S1 TLIF performed by Frank Reddy MD at [facility] OR NECK [...] Assisted Dressing Assisted Toileting Assisted Feeding Assisted Asp Net Programmer Assisted Med Delivery whole Wound Care Documentation and Therapy: Wound 02/07/22 Sacrum Mid Purple discoloration on coccxy, not blanchable, peeling (Active) Wound Etiology Deep tissue/Injury 02/16/221940 Dressing/Treatment Protective barrier;Zinc paste 02/16/22 194 Wound Assessment Purple/maroon 02/16/22 0845 Drainage Amount None 02/16/22 0845 Odor None 02/16/22 0845 Charley-wound Assessment Blanchable erythema;Fragile 02/14/22 2226 Number of days: 10 Wound 02/07/22 Toe [...] applicable) Name: Address: Dialysis Schedule: Phone: Fax: Procurement Engineer/Supervisor Logging signature: {Esignature:[id number]} PHYSICIAN SECTION Prognosis: {Prognosis:4365267948} Condition at Discharge: { Patient Condition:080535527} Rehab Potential (if transferring to Rehab): {Prognosis:0883250142} Recommended Labs or Other Treatments After Discharge: Physician Certification: I certify the above information and transfer of Alisia Correa is necessary for the continuing treatment of the diagnosis listed and that he requires {Admit to Appropriate Level of Care:68115} for {GREATER/LESS:666428610} 30 days. Update Admission H&P: {CHP DME Changes in HandP:440160338} PHYSICIAN SIGNATURE: * Additional Instructions* Nevaeh Oviedo, [...] All vegetables, especially asparagus, jack sprouts, broccoli, Mallory sprouts, cabbage, carrots, cauliflower, celery, corn, greens, [...] taking more than one drug. This includes [id number] medication and herb or dietary supplements. Plan [...] dr schrader 6-8 weeks documented in this [facility] Work Phone: 1(279) 750-523004-23-2022 NotePROCEDURE: XR CHEST PORTABLE CLINICAL INFORMATION: SOB. [...] by: Romel Maldonado DO 02/08/22 [facility] NotePROCEDURE: XR CHEST PORTABLE CLINICAL INFORMATION: SOB. [...] stable degenerative changes of the acromioclavicular joints. [facility] [id number] NotePROCEDURE: XR LUMBAR SPINE 1 VW CLINICAL [...] by: Milton Way MD 02/07/22 [facility] resultSaint [facility]04-22-2022 NotePROCEDURE: XR LUMBAR SPINE 1 VW CLINICAL [...] behind the L2 and L3 vertebral bodies. [facility] [id number] Evaluation note* Encounter Date Diagnosis Assessment Notes [...] Nasal swab noted MRSA. Advised patient to waste picker antibiotic and start it as soon as possible. [employer] [facility] [employer] Other 04-07-2022 NotePROCEDURE: XR CHEST (2 VW) [...] Signed by: Olga Espinoza MD 01/23/22 [facility] Evaluation note* Encounter Date Diagnosis Assessment Notes Treatment Notes Treatment Clinical Notes Jan, Parkinsonism (ICD-10 - G20) Jan, Diabetes (ICD-10 - E11.9) [facility] [facility] Other 03-28-2022 Evaluation note* Encounter Date Diagnosis Assessment Notes Treatment Notes Treatment Clinical Notes Dec, Constipation (ICD-10 - K59.00) [place] [employer] Other 02-17-2022 Evaluation note* Encounter Date Diagnosis Assessment Notes Treatment Notes Treatment Clinical Notes Nov, Hyperlipidemia (ICD-10 - E78.5) Nov, Parkinsonism (ICD-10 - G20) Patient following with neurologist Dr. Mancia and captain/check airman Dr. Harris. He reports improvement with his [...] symptoms, symptom details unspecified (ICD-10 - N40.1) [facility] [facility] [employer] Other 02-07-2022 Miscellaneous Notes* Telephone Encounter - Chrissy Christian - 11/25/2021 3:17 PM EST FINAL ATTEMPT Called and left detailed message for patient to call to schedule procedure with pain management. Will follow up. Patient provided with direct extension to reach surgical coordinators. If patient calls back, please transfer to [phone]. * Telephone Encounter - Chrissy Christian - 11/21/2021 6:07 PM EST Bilateral L 2-3 ,3-L4, L4-L5 and L5-S1 FACET ALISIA CORREA [id number] JEANNIE CAMENGER Called and left detailed message for patient to call to schedule procedure with pain management. Will follow up. Patient provided with direct extension to reach surgical coordinators. If patient calls back, please transfer to [phone]. * Telephone Encounter - Chrissy Christian - 11/14/2021 11:53 AM EST Bilateral L 2-3 ,3-L4, L4-L5 and L5-S1 FACET ALISIA CORREA [id number] JEANNIE Called and left detailed message for patient to call to schedule procedure with pain management. Will follow up. Patient provided with direct extension to reach surgical coordinators. If patient calls back, please transfer to [phone]. * Telephone Encounter - Kiara Dhaliwal RN [...] relief from today's block. [facility]* Encounter Date Diagnosis Assessment Notes Treatment Notes Treatment Clinical Notes Oct, Hypotension, unspecified hypotension type (ICD-10 - I95.9) Oct, Risk for falls (ICD-10 - Z91.81) Oct, Diabetes (ICD-10 - E11.9) Oct, Neuropathy (ICD-10 - G62.9) Oct, Failed back syndrome (ICD-10 - M96.1) Oct, Parkinsonism (ICD-10 - G20) [facility] Other 12-13-2021 Evaluation note* Encounter Date Diagnosis Assessment Notes Treatment Notes Treatment Clinical Notes Sep, Parkinsonism (ICD-10 - G20) [facility] Other 11-16-2021 Evaluation note* Encounter Date Diagnosis Assessment Notes Treatment Notes Treatment Clinical Notes Aug, Benign prostatic hyperplasia with lower urinary tract symptoms (ICD-10 - N40.1) [facility] [facility] Other 11-09-2021 Evaluation note* Encounter Date Diagnosis [...] I strongly recommend the patient contact his store operations manager to be evaluated. 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 [facility] Other 10-28-2020 History of Present illness Narrative* [...] 15, 2020 8:27 AM [facility] History of Present illness Narrative* [place])OMERO [...] 15, 2020 9:03 AM documented in this encounterHol[facility]02-[facility] History of Past illness Narrative* Problem Noted Date Resolved Date Ulcerative lesion 12/07/2017 07/21/2019 Glenohumeral arthritis 07/17/2016 9 SPRAIN OF NECK (30/4) 03/06/2004 07/21/20 19 Brachial neuritis or radiculitis 03/06/2004 12/22/2018 Carpal tunnel syndrome 03/06/2004 9 documented as of this encounter (statuses as of 01/28/2022) [facility] of Past illness Narrative* Problem Noted Date Resolved Date Ulcerative lesion 12/07/2017 07/21/2019 Glenohumeral arthritis 07/17/2016 9 Urgency of urination 07/31/2006 12/05/2022 SPRAIN OF NECK () 03/06/2004 07/21/20 Brachial neuritis or radiculitis 03/06/2004 12/22/2018 Carpal tunnel syndrome 03/06/2004 9 documented as of this encounter (statuses as of 12/06/2022) [facility] of Past illness Narrative* Problem Noted Date Resolved Date Ulcerative lesion 12/07/2017 07/21/2019 Glenohumeral arthritis 07/17/2016 9 Urgency of urination 07/31/2006 12/05/2022 SPRAIN OF NECK () 03/06/2004 07/21/20 Brachial neuritis or radiculitis 03/06/2004 12/22/2018 Carpal tunnel syndrome 03/06/2004 9 documented as of this encounter (statuses as of 12/25/2022) [facility] of [facility] illness Narrative* Problem Noted Date Diagnosed Date Resolved Date Ulcerative lesion 12/07/2017 07/21/2019 Glenohumeral arthritis 07/17/201612/22 Urgency of urination 07/31/2006 023 SPRAIN OF NECK () 03/06/2004 1012/2018 Brachial neuritis or radiculitis 03/06/2004 12/22/2018 Carpal tunnel syndrome 03/06/200412/22 documented as of this encounter (statuses as of 05/29/2023) [facility] of [facility] illness Narrative* Problem Noted Date Diagnosed Date Resolved Date Ulcerative lesion 12/07/2017 07/21/2019 Glenohumeral arthritis 07/17/201612/22 Urgency of urination 07/31/2006 023 SPRAIN OF NECK () 03/06/200412/2018 Brachial neuritis or radiculitis 03/06/2004 12/22/2018 Carpal tunnel syndrome 03/06/200412/22 documented as of this encounter (statuses as of 05/29/2023) [facility] of [facility] illness Narrative* Problem Noted Date Diagnosed Date Resolved Date Ulcerative lesion 12/07/2017 07/21/2019 Glenohumeral arthritis 07/17/201612/22 Urgency of urination 07/31/2006 023 SPRAIN OF NECK () 03/06/200412/2018 Brachial neuritis or radiculitis 03/06/2004 12/22/2018 Carpal tunnel syndrome 03/06/200412/22 documented as of this encounter (statuses as of 05/29/2023) [facility] History general Narrative - Reported* Type Description Date Medical History 06/07/12 Stress Test [facility] Medical History 2008-colonoscopy wit h Dr. Ordonez; 07/2016 colonoscopy/egd [facility] Medical History 01/26/15 Labs Medical History 03/2016- stress test [facility]ocar diogram [place] [facility] Medical History 03/2016 EGD [place] [facility] Medical History 08/20/16 PSA ( 0.79) Medical [...] total hip-CC 04/10/20 Hospitalization History SEE ABOVE [facility] Other 08-20-2012 History general Narrative - Reported* Type Description Date Medical History 06/07/12 Stress Test NO Medical History 2008-colonoscopy ruba Ordonez; 07/2016 colonoscopy/egd [facility] Medical History 01/26/15 Labs Medical History 03/2016- stress test and echocar diogram [place] [facility] Medical History 03/2016 EGD at [facility] Medical History 08/20/16 PSA ( 0.79) Medical [...] Roman hinkle 10/2021 Hospitalization History SEE ABOVE [facility] Other 08-20-2012 History general Narrative - Reported* Type Description Date Medical History 06/07/12 Stress Test NO Medical History 2008-colonoscopy ruba Ordonez; 07/2016 colonoscopy/egd [facility] Medical History 01/26/15 Labs Medical History 03/2016- stress test and echocar diogram [place] [facility] Medical History 03/2016 EGD at [facility] Medical History 08/20/16 PSA ( 0.79) Medical [...] Owens r 10/2021 Hospitalization History SEE ABOVE [facility] Other 08-20-2012 History general Narrative - Reported* Type Description Date Medical History 06/07/12 Stress Test NO Medical History 2008-colonoscopy wit h Dr. Ordonez; 07/2016 colonoscopy/egd [facility] Medical History 01/26/15 Labs Medical History 03/2016- stress test and echocar diogram [place] [facility] Medical History 03/2016 EGD at [facility] Medical History 08/20/16 PSA ( 0.79) Medical [...] Dr Romo 01/2022 Hospitalization History SEE ABOVE [facility] Other 08-20-2012 History general Narrative - Reported* Type Description Date Medical History 06/07/12 Stress Test [facility] Medical History 2008-colonoscopy ruba Ordonez; 07/2016 colonoscopy/egd [facility] Medical History 01/26/15 Labs Medical History 03/2016- stress test and echocar diogram [place] [facility] Medical History 03/2016 EGD at [facility] Medical History 08/20/16 PSA ( 0.79) Medical [...] History SEE ABOVE Hospitalization History pneumonia 10/2022 [facility] Other 08-20-2012 History general Narrative - Reported* Type Description Date Medical History 06/07/12 Stress Test [facility] Medical History 2008-colonoscopy ruba Ordonez; 07/2016 colonoscopy/egd [facility] Medical History 01/26/15 Labs Medical History 03/2016- stress test and echocar diogram [place] [facility] Medical History 03/2016 EGD at [facility] Medical History 08/20/16 PSA ( 0.79) Medical [...] History SEE ABOVE Hospitalization History pneumonia 10/2022 [employer] [facility] [employer] Other Chief complaint Narrative - ReportedALISIA CORREA is being seen for a consultation for chest pain.-[facility] DO Work Phone: Chief complaint Narrative - Reported* ALISIA CORREA is being seen for a consultation for chest pain. * 60-year-old white male who is being evaluated at the request of PCP for symptoms of dyspnea and chest pain with syncope. The patient appears older than his stated age and unfortunately has history ofParkinson's disease followed by neurology from [place] on medical therapy. The patient has been [...] 7 Parkinson's disease followed by neurology from [place]. * 8 obesity, encouraged the patient to reduce caloric consumption * 9 possible PAD, patient is following up with podiatry [place] [id number] Work Phone: Evaluation + Plan note Future Appointments Appointment Date:02/20/2023 09:15:00 AM Scheduled Provider:Fidel IBARRA MD Location:[facility] Appointment Type:URO Office Visit [facility] evaluation + Plan note Future Appointments Appointment Date:03/20/2023 09:00:00 AM Scheduled Provider: Location:[facility] Appointment Type:URO Nurse Visit [facility] evaluation + Plan note Future Appointments Appointment Date:04/17/2023 09:00:00 AM Scheduled Provider: Location:[facility] Appointment Type:URO Nurse Visit [facility] evaluation + Plan note Future Appointments Appointment Date:05/25/2023 11:00:00 AM Scheduled Provider: Location:[facility] Appointment Type:URO Nurse Visit [facility] evaluation + Plan note Future Appointments Appointment Date:06/19/2023 11:00:00 AM Scheduled Provider: Location:[facility] Lori Appointment Type:URO Nurse Visit [facility] evaluation + Plan note Future Appointments Appointment Date:06/19/2023 11:00:00 AM Scheduled Provider: Location:[facility] Lori Appointment Type:URO Nurse Visit Diagnostic Tests Pending * [facility]ments Appointment Date:07/17/2023 11:00:00 AM Scheduled Provider: Location:[facility] [place] Appointment Type:URO Nurse Visit [facility] evaluation + Plan note Future Appointments Appointment Date:07/17/2023 11:00:00 AM Scheduled Provider: Location:[facility] Lori Appointment Type:URO Nurse Visit Diagnostic Tests Pending * Urine [facility] Future Appointments Appointment Date:08/14/2023 11:00:00 AM Scheduled Provider: Location:[facility] Lori Appointment Type:URO Nurse Visit [facility] evaluation + Plan note Future Appointments Appointment Date:08/14/2023 11:00:00 AM Scheduled Provider: Location:[facility] [place] Appointment Type:URO Nurse Visit Diagnostic Tests Pending * Urine Culture [facility] Future Appointments Appointment Date:09/14/2023 11:00:00 AM Scheduled Provider: Location:[facility] Lori Appointment Type:URO Nurse Visit [facility] evaluation + Plan note Future Appointments Appointment Date:10/20/2023 11:00:00 AM Scheduled Provider: Location:[facility] Lori Appointment Type:[facility] Future Appointments Appointment Date:11/16/2023 11:00:00 AM Scheduled Provider: Location:[facility] Appointment Type:URO Nurse Visit Diagnostic Tests Pending * Urine Culture [facility] Future Appointments Appointment Date:12/14/2023 11:30:00 AM Scheduled Provider: Location:[facility] Appointment Type:URO Nurse Visit [facility] evaluation + Plan note Future Appointments Appointment Date:02/01/2024 11:00:00 AM Scheduled Provider: Location:[facility] Appointment Type:URO Nurse Visit [facility] evaluation + Plan note Future Appointments Appointment Date:02/22/2024 11:00:00 AM Scheduled Provider: Location:[facility] Appointment Type:URO Nurse Visit [facility] evaluation + Plan note Future Appointments Appointment Date:03/15/2024 10:30:00 AM Scheduled Provider: Location:[facility] Appointment Type:URO Nurse Visit [facility] evaluation + Plan note Future Appointments Appointment Date:03/15/2024 10:30:00 AM Scheduled Provider: Location:[facility] Appointment Type:URO Nurse Visit Diagnostic Tests Pending * Urine Culture [facility] Future Appointments Appointment Date:04/05/2024 02:40:00 PM Scheduled Provider:TITI Duncan APRN, [place] Location:[facility] Appointment Type:URO Office Visit [facility] evaluation + Plan note Future Appointments Appointment Date:04/26/2024 11:30:00 AM Scheduled Provider:TITI Duncan APRN, [place] Location:[facility] Appointment Type:URO Office Visit [facility] evaluation + Plan note Future Appointments Appointment Date:04/26/2024 11:30:00 AM Scheduled Provider:TITI Duncan APRN, [place] Location:[facility] Appointment Type:URO Office Visit Diagnostic Tests Pending * Urine Culture [facility]05[facility] Future Appointments Appointment Date:06/30/2024 11:00:00 AM Scheduled Provider:Madeline Harry Location:[facility] Appointment Type:URO Office Visit [facility] evaluation + Plan note Future Appointments Appointment Date:06/30/2024 11:00:00 AM Scheduled Provider:Madeline Harry Location:[facility] Appointment Type:URO Office Visit Diagnostic Tests Pending * Urine Culture 06/14/24 [facility] Evaluation + Plan note Future Appointments Appointment Date:08/09/2024 02:30:00 PM Scheduled Provider:TITI Duncan APRN, [place] Location:[facility] Appointment Type:URO Office Visit [facility] evaluation + Plan note Future Appointments Appointment Date:08/30/2024 11:40:00 AM Scheduled Provider:LYN MACE PA-C Location:[facility] Appointment Type:URO Office Visit [facility] evaluation + Plan note Future Appointments Appointment Date:09/27/2024 11:20:00 AM Scheduled Provider:LYN MACE PA-C Location:[facility] Appointment Type:URO Office Visit [facility] evaluation + Plan note Future Appointments Appointment Date:07/19/2024 12:30:00 PM Scheduled Provider:TITI Duncan APRN, [place] Location:[facility] Appointment Type:URO Office Visit [facility] evaluation + Plan note Future Appointments Appointment Date:10/28/2024 11:20:00 AM Scheduled Provider:LYN MACE PA-C Location:[facility] Appointment Type:URO Office Visit Diagnostic Tests Pending * Urine Culture 09/27/24 [facility] evaluation + Plan note Future Appointments Appointment Date:10/28/2024 11:20:00 AM Scheduled Provider:LYN MACE PA-C Location:[facility] Appointment Type:URO Office Visit [facility] evaluation + Plan note Future Appointments Appointment Date:11/25/2024 11:20:00 AM Scheduled Provider:LYN MACE PA-C Location:[facility] Appointment Type:URO Office Visit [facility] evaluation + Plan note Future Appointments Appointment Date:12/27/2024 11:20:00 AM Scheduled Provider:LYN MACE PA-C Location:[facility] Appointment Type:URO Complex Office Visit [facility] evaluation + Plan note Future Appointments Appointment Date:12/27/2024 11:20:00 AM Scheduled Provider:LYN MACE PA-C Location:[facility] Appointment Type:URO Complex Office Visit Diagnostic Tests Pending * Urine Culture 11/28/24 [facility] evaluation + Plan note Future Appointments Appointment Date:04/24/2025 10:00:00 AM Scheduled Provider:LYN MACE PA-C Location:[facility] Appointment Type:URO Office Visit Appointment Date:05/15/2025 10:00:00 AM Scheduled Provider:LYN MACE PA-C Location:[facility] Appointment Type:URO Office Visit [facility] evaluation + Plan note Future Appointments Appointment Date:05/15/2025 10:00:00 AM Scheduled Provider:LYN MACE PA-C Location:[facility] Appointment Type:URO Office Visit [facility] evaluation + Plan note Future Appointments Appointment Date:06/14/2025 12:30:00 PM Scheduled Provider:Michelle Mahoney PA-C Location:[facility] Appointment Type:URO Office Visit [facility] evaluation note* Diagnosis Lumbar stenosis with neurogenic claudication- Primary Spinal stenosis, lumbar region, with neurogenic claudication Idiopathic hypotension Hypotension, unspecified documented in this encounter [employer] Work Phone: [email or web address] noteNo [facility] [employer] Other Evaluation note* Diagnosis NO SHOW- Primary [facility] Diagnosis Postlaminectomy syndrome of lumbar region Postlaminectomy syndrome, lumbar region Pain in thoracic spine Spinal cord stimulator status Other postprocedural status documented in this encounter [facility]* Diagnosis Radiculopathy of lumbar region Thoracic or lumbosacral neuritis or radiculitis, unspecified [facility]* Diagnosis Pain in thoracic spine S/P insertion of spinal cord stimulator [facility]* Diagnosis Onset Date Resolution Status Diarrhea acute Incontinence of bowel acute Mucus in stool acute Nausea acute [facility] Work Phone: evaluation note* Diagnosis Onset Date Resolution Status Diarrhea acute Incontinence of bowel acute Mucus in stool acute Nausea acute Chronic pain syndrome acute Hyperlipidemia acute Hypotestosteronism acute Mucus in stool acute Neurogenic bladder acute Neurogenic bowel acute Suprapubic catheter acute [facility] Work Phone: Evaluation note* Diagnosis Onset Date Resolution Status Diarrhea acute DMII (diabetes mellitus, type 2) acute Frequent headaches acute Mucus in stool acute Parkinsons acute Sepsis acute Suprapubic catheter acute [facility] Work Phone: Evaluation note* Diagnosis Encounter for screening for abdominal aortic aneurysm (AAA) in patient 50 years of age or older with history of smoking- Primary Critical limb ischemia of both lower extremities with gangrene (CMS-HCC) Abdominal aortic aneurysm dissection (CMS-HCC) Dissection of aorta, abdominal Critical limb ischemia of both lower extremities with gangrene (CMS-HCC)- Primary Neurogenic orthostatic hypotension (CMS-HCC)- Primary Spinal stenosis of lumbar region with neurogenic claudication Parkinson's disease without dyskinesia or fluctuating manifestations (CMS-HCC) documented in this encounter [facility] System[facility]* Diagnosis Encounter for screening for abdominal aortic aneurysm (AAA) in patient 50 years of age or older with history of smoking- Primary Critical limb ischemia of both lower extremities with gangrene (CMS-HCC) Abdominal aortic aneurysm dissection (CMS-HCC) Dissection of aorta, abdominal Critical limb ischemia of both lower extremities with gangrene (CMS-HCC)- Primary Orthostasis Orthostatic hypotension documented in this encounter [facility] System[facility] note* Diagnosis Encounter for screening for abdominal aortic aneurysm (AAA) in patient 50 years of age or older with history of smoking- Primary Critical limb ischemia of both lower extremities with gangrene (CMS-HCC) Abdominal aortic aneurysm dissection (CMS-HCC) Dissection of aorta, abdominal Critical limb ischemia of both lower extremities with gangrene (CMS-HCC)- Primary Parkinson's disease (CMS-HCC) Paralysis agitans documented in this encounter [facility] SystemEvaluation note* Diagnosis Encounter for screening for abdominal aortic aneurysm (AAA) in patient 50 years of age or older with history of smoking- Primary Critical limb ischemia of both lower extremities with gangrene (CMS-HCC) Abdominal aortic aneurysm dissection (CMS-HCC) Dissection of aorta, abdominal Critical limb ischemia of both lower extremities with gangrene (CMS-HCC)- Primary Parkinson's disease (CMS-HCC) Paralysis agitans [facility]* Diagnosis Migraine without aura and without status migrainosus, not intractable [facility] Diagnosis Migraine without aura and without status migrainosus, not intractable [facility] noteNo assessment information available [facility] Work Phone: Evaluation note* Diagnosis Parkinson's disease Paralysis agitans [facility]* Diagnosis Parkinson's disease Paralysis agitans [facility]* Diagnosis Critical limb ischemia of both lower extremities with gangrene (CMS-HCC)- Primary [facility]* Diagnosis Parkinson's disease without dyskinesia or fluctuating manifestations- Primary Spinal stenosis of lumbar region with neurogenic claudication Anxiety Anxiety state, unspecified [facility]* Diagnosis Orthostasis Orthostatic hypotension [facility]* Diagnosis Spinal stenosis of lumbar region with neurogenic claudication [facility]* Diagnosis Migraine without aura and without status migrainosus, not intractable [facility]* Diagnosis Encounter for screening for abdominal aortic aneurysm (AAA) in patient 50 years of age or older with history of smoking- Primary Critical limb ischemia of both lower extremities with gangrene (CMS-HCC) Abdominal aortic aneurysm dissection (CMS-HCC) Dissection of aorta, abdominal [facility]* Diagnosis 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) [facility]* Diagnosis Encounter for screening for abdominal aortic aneurysm (AAA) in patient 50 years of age or older with history of smoking- Primary Critical limb ischemia of both lower extremities with gangrene (CMS-HCC) Abdominal aortic aneurysm dissection (CMS-HCC) Dissection of aorta, abdominal Critical limb ischemia of both lower extremities with gangrene (CMS-HCC)- Primary Spinal stenosis of lumbar region with neurogenic claudication [facility]* Diagnosis Encounter for screening for abdominal aortic aneurysm (AAA) in patient 50 years of age or older with history of smoking- Primary Critical limb ischemia of both lower extremities with gangrene (CMS-HCC) Abdominal aortic aneurysm dissection (CMS-HCC) Dissection of aorta, abdominal Critical limb ischemia of both lower extremities with gangrene (CMS-HCC)- Primary Parkinson's disease (CMS-HCC) Paralysis agitans documented in this encounter [facility]* Diagnosis Encounter for screening for abdominal aortic aneurysm (AAA) in patient 50 years of age or older with history of smoking- Primary Critical limb ischemia of both lower extremities with gangrene (CMS-HCC) Abdominal aortic aneurysm dissection (CMS-HCC) Dissection of aorta, abdominal Critical limb ischemia of both lower extremities with gangrene (CMS-HCC)- Primary Orthostasis Orthostatic hypotension documented in this encounter [facility] note* Diagnosis Encounter for screening for abdominal aortic aneurysm (AAA) in patient 50 years of age or older with history of smoking- Primary Critical limb ischemia of both lower extremities with gangrene (CMS-HCC) Abdominal aortic aneurysm dissection (CMS-HCC) Dissection of aorta, abdominal Critical limb ischemia of both lower extremities with gangrene (CMS-HCC)- Primary Migraine without aura and without status migrainosus, not intractable documented in this encounter [facility]* Diagnosis Encounter for screening for abdominal aortic aneurysm (AAA) in patient 50 years of age or older with history of smoking- Primary Critical limb ischemia of both lower extremities with gangrene (CMS-HCC) Abdominal aortic aneurysm dissection (CMS-HCC) Dissection of aorta, abdominal Critical limb ischemia of both lower extremities with gangrene (CMS-HCC)- Primary Spinal stenosis of lumbar region with neurogenic claudication documented in this encounter [facility]* Diagnosis Onset Date Resolution Status Admit Date Depression acute December 29 1:14pm Diabetes acute December 29 1:14pm Migraine acute December 29 1:14pm Parkinsons acute December 29 1:14pm Suprapubic catheter acute December 29, 2024 1:14pm [facility] Work Phone: Evaluation note* Diagnosis Encounter for screening for abdominal aortic aneurysm (AAA) in patient 50 years of age or older with history of smoking- Primary Critical limb ischemia of both lower extremities with gangrene (CMS-HCC) Abdominal aortic aneurysm dissection (CMS-HCC) Dissection of aorta, abdominal Critical limb ischemia of both lower extremities with gangrene (CMS-HCC)- Primary Dysphagia, unspecified type- Primary Globus sensation Gastrointestinal malfunction arising from mental factors 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 Constipation, unspecified constipation type Cerebellar dysmetria Other cerebellar ataxia documented in this encounter [facility] note* Diagnosis Encounter for screening for abdominal aortic aneurysm (AAA) in patient 50 years of age or older with history of smoking- Primary Critical limb ischemia of both lower extremities with gangrene (CMS-HCC) Abdominal aortic aneurysm dissection (CMS-HCC) Dissection of aorta, abdominal Critical limb ischemia of both lower extremities with gangrene (CMS-HCC)- Primary Encounter for abdominal aortic aneurysm (AAA) screening- Primary Open wound of left great toe, subsequent encounter Critical limb ischemia of left lower extremity with gangrene (CMS-HCC) documented in this encounter [facility]* Diagnosis Encounter for screening for abdominal aortic aneurysm (AAA) in patient 50 years of age or older with history of smoking- Primary Critical limb ischemia of both lower extremities with gangrene (CMS-HCC) Abdominal aortic aneurysm dissection (CMS-HCC) Dissection of aorta, abdominal Critical limb ischemia of both lower extremities with gangrene (CMS-HCC)- Primary Encounter for abdominal aortic aneurysm (AAA) screening- Primary Open wound of left great toe, subsequent encounter Critical limb ischemia of left lower extremity with gangrene (CMS-HCC) Dysautonomia orthostatic hypotension syndrome- Primary Other degenerative diseases of the basal ganglia documented in this encounter [facility] System[facility] note* Diagnosis Encounter for screening for abdominal aortic aneurysm (AAA) in patient 50 years of age or older with history of smoking- Primary Critical limb ischemia of both lower extremities with gangrene (CMS-HCC) Abdominal aortic aneurysm dissection (CMS-HCC) Dissection of aorta, abdominal Critical limb ischemia of both lower extremities with gangrene (CMS-HCC)- Primary Encounter for abdominal aortic aneurysm (AAA) screening- Primary Open wound of left great toe, subsequent encounter Critical limb ischemia of left lower extremity with gangrene (CMS-HCC) Spinal stenosis of lumbar region with neurogenic claudication documented in this encounter [facility] System[facility] note* Diagnosis Encounter for screening for abdominal aortic aneurysm (AAA) in patient 50 years of age or older with history of smoking- Primary Critical limb ischemia of both lower extremities with gangrene (CMS-HCC) Abdominal aortic aneurysm dissection (CMS-HCC) Dissection of aorta, abdominal Critical limb ischemia of both lower extremities with gangrene (CMS-HCC)- Primary Encounter for abdominal aortic aneurysm (AAA) screening- Primary Open wound of left great toe, subsequent encounter Critical limb ischemia of left lower extremity with gangrene (CMS-HCC) Parkinson's disease without dyskinesia or fluctuating manifestations (CMS-HCC)- Primary Dysphagia, unspecified type documented [facility] this encounter [facility] Diagnosis Encounter for screening for abdominal aortic aneurysm (AAA) in patient 50 years of age or older with history of smoking- Primary Critical limb ischemia of both lower extremities with gangrene (CMS-HCC) Abdominal aortic aneurysm dissection (CMS-HCC) Dissection of aorta, abdominal Critical limb ischemia of both lower extremities with gangrene (CMS-HCC)- Primary Encounter for abdominal aortic aneurysm (AAA) screening- Primary Open wound of left great toe, subsequent encounter Critical limb ischemia of left lower extremity with gangrene (CMS-HCC) Chronic intractable headache, unspecified headache type- Primary documented [facility] Narrative No data available for this section [facility] Discharge instructions No data available for this section [facility] InstructionsNot on filedocumented in this encounter [facility] [...] available for this section [facility] (narrative)* Reason Home physical therap y evaluation and treatment requested. Diagnosis 1 Hypotension, unspeci fied hypotension type (I95.9) Diagnosis 2 Diabetes (E11.9) Diagnosis 3 Parkinsonism (G20) Diagnosis 4 Neuropathy (G62.9) Diagnosis 5 Failed back syndrome (M96.1) Diagnosis 6 Risk for falls (Z91. 81) Referral Organization [facility] [place] Referring Provider First Name Ellen Referring Provider Last Name Leyda Referring Provider Specialty Family Prac candice Referred Organization [facility] Referred Address [address] [place], [place],[address] Referred Provider Specialty Physical The rapist Referral Priority Routine [facility] Other Reason for referral (narrative)* Reason Patient is needing i n office consultation for change in stool and nausea. Please call patient with appointment date and time Diagnosis 1 Change in stool (R19 .5) Diagnosis 2 Nausea (R11.0) Referral Organization [facility] [place] Referring Provider First Name Ellen Referring Provider Last Name Leyda Referring Provider Specialty Family Prac candice Referred Organization [facility] Referred Address [address],[address] Referred Provider Specialty Gastroentero logy Referral Priority Routine [facility] Other Reason for visit Narrative* Auth/Cert Specialty Diagnoses / Procedures Referred By Agustina molina Referred To Contact Diagnoses Lumbosacral spinal stenosis LUMBOSACRAL SPINAL STENOSIS Procedures POSTERIOR SEGMENTAL INSTRUMENTATION 3-6 VRT SEG TN INSJ BIOMCHN DEV INTERVERTEBRAL DSC SPC W/ARTHRD TN ALLOGRAFT FOR SPINE SURGERY ONLY MORSELIZED TN ARTHRODESIS COMBINED TQ 1NTRSPC LUMBAR TN ALEGRIA FACETEC/FORAMOT DRG ARTHRD LUMBAR 1 VRT SGM TN ALEGRIA FACETEC/FORAMOT DRG ARTHRD LMBR EA ADDL SGM TN ARTHRODESIS PST/PSTLAT TQ 1NTRSPC EA ADDL NTRSPC L2-S1 DECOMPRESSION L2-S1 POSTERIOR FUSION WITH ILIAC BOLTS, L5-S1 TLIF Frank Reddy MD [address] [place] [address] [place] [address] simplifyMD [address] [place] [address] Referral ID Status Reason Start Date Expiration Date Visits Re quested Visits Authorized [id number] 1 1 [employer] Phone: Summary Purpose Family History No Family [...] Cardiac disease Unknown brother Unknown grandparent Unknown Relationship Condition Age at Onset Recorded Date/T haylee brother Malignant neoplasm of lung Unknown Malignant neoplasm metastatic to brain Un known grandparent Malignant neoplasm of lung Unknown father Diabetes mellitus Unknown Hypertension Unknown mother Hypertension Unknown Diabetes mellitus Unknown Cardiac disease Unknown brother Unknown grandparent Unknown Advance Directives No Advanced Directives Records FoundDocuments on File Type Date Recorded 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 Advance Directive(s) 11/08/2021 10:04 AM [...] Comments Full Code Order Discussed With: Patient Advance Directive Response Recorded Date/ Time Advance Directives No November 10, 2023 4:28pm Date Activated Date Inactivated Comments 02/07/2021 1:34 PM 02/19/2021 4:48 PM Date Activated Date Inactivated Comments 02/03/2021 2:46 PM 02/07/2021 1:08 PM Date Activated Date Inactivated Comments 02/07/2021 1:34 PM 02/19/2021 4:48 PM Date Activated Date Inactivated Comments 02/03/2021 2:46 PM 02/07/2021 1:08 PM Advance Directive Response Recorded Date/ Time Advance Directives No November 10, 2023 3:28pm Latest Code Status on File Code Status [...] Code 02/03/2021 2:46 PM 02/07/2021 1:08 PM Hospital Course Note HNO ID: [id number] Author: Rolly Naik Service: Orthopaedic Surgery Author Type: Physician Doctor Of Radiology Type: Discharge Summary Filed: 11/12/2019 2:21 PM [...] (more content not included)... Note HNO ID: [id number] Author: Jason Guevara Jr. Service: Orthopaedic Surgery [...] (more content not included)... Note HNO ID: [id number] Author: Judy Mathews Service: ? Author Type: Nurse Seasonal Warehouse Associate Type: Anesthesia Procedure Notes Filed: 05/03/2020 1:32 PM Note Text: ANESTHESIOLOGY PROCEDURE NOTE Airway General Information Procedure Start Time/Medication Administration: 05/03/2020 12:55 PM Patient location during procedure: OR Staffing STEWARD/STEWARDESS SECOND CLASS: Kathleen Mathews Performed by: APRIL Indications and [...] not included)... Procedure Findings Note HNO ID: [id number] Author: Judy Mathews Service: ? Author Type: Nurse Seasonal Warehouse Associate Type: Anesthesia Procedure Notes Filed: 05/03/2020 1:32 PM Note Text: ANESTHESIOLOGY PROCEDURE NOTE Airway General Information Procedure Start Time/Medication Administration: 05/03/2020 12:55 PM Patient location during procedure: OR Staffing STEWARD/STEWARDESS SECOND CLASS: Kathleen Mathews Performed by: APRIL Indications and [...] 1 [place] esophagus (K 22.70) [facility] [place] Referring Provider First Name Ellen Referring Provider Last Name Leyda Referring Provider Specialty Family Prac candice Referred Organization [facility] Referred Provider Yifan Gama Referred Address [address] [facility] [address] ,[place], [place],[address] Referred Provider Specialty Gastroentero logy Referral Priority Routine General Notes Tomeka Hussein 021 10:28:40 AM >Graciela, is this suppose to be urgentVeveruriGraciela A 08/06/2021 10:49:26 AM > no, sorry must have accidentally made urgent :) Specialty Diagnoses / Procedures Referred By Contac t Referred To Contact Rehabilitation Diagnoses Parkinson's disease without dyskinesia or fluctuating manifestations Reena Cervantes, EMBEDDED FIRMWARE ENGINEER-[address] [address] Referral ID Status Reason Start Date Expiration Date Visits Requested Visits Authorized [id number] Pending Review Specialty Services Required 11/16/2023 11/15/2024 1 1 Specialty Diagnoses / Procedures Referred By Contac t Referred To Contact Speech Pathology Diagnoses Parkinson's disease without dyskinesia or fluctuating manifestations Reena Cervantes, EMBEDDED FIRMWARE ENGINEER-RESIDENTIAL CHILD CARE COUNSELOR [address] [place] [address] Referral ID Status Reason Start Date Expiration Date Visits Requested Visits Authorized [id number] Pending Review Specialty Services Required 11/16/2023 11/15/2024 1 1 Specialty Diagnoses / Procedures Referred By Contac t Referred To Contact Diagnoses Critical limb ischemia of both lower extremities with gangrene ([facility]) Procedures Vas art doppler lwr bilat mult lev/PVR Heidy Marin MD [address], [address] [address] Referral ID Status Reason Start Date Expiration Date V isits Requested Visits Authorized [id number] Pending Review 01/28/2024 01/27/2025 1 1 Specialty Diagnoses / Procedures Referred By Contac t Referred To Contact Diagnoses Encounter for screening for abdominal aortic aneurysm (AAA) in patient 50 years of age or older with history of smoking Abdominal aortic aneurysm dissection ([facility]-HCC) Procedures Vas aorta/iliac duplex complete Heidy Marin MD [address], [address] [address] Referral ID Status Reason Start Date Expiration Date V isits Requested Visits Authorized [id number] Pending Review 01/28/2024 01/27/2025 1 1 Health Concerns Infection Onset Date Last Indicated Resolved Time COVID-19 Confirmed Comment:20 day 11/26/22: Pt requiring HiFlo from 2 L NC, decadron started 11/20/2022 11/20/2022 Chief Complaint and [...] bowel Suprapubic catheter Chief Complaint Amb Documentation hospital/[place] follow up Reason for Visit Diarrhea DMII (diabetes mellitus, type 2) Frequent headaches Mucus in stool Parkinsons Sepsis Suprapubic catheter Chief Complaint Admit Date headache, L side facial numbness Decembe r 2023 3:51pm e78.5 e11.9 November 28, 2024 9:50am Chief Complaint Admit Date headache, L side facial numbness Decembe r 2023 3:51pm e78.5 e11.9 November 28, 2024 9:50am Unknown December 13, 2024 6:30pm Chief Complaint Admit Date e78.5 e11.9 November 28, 2024 9:50am Unknown December 13, 2024 6:30pm 2 month f/u December 29, 2024 1:1 4pm Reason for Visit Admit Date Depression December 29, 2024 1:1 4pm Diabetes December 29, 2024 1:1 4pm Migraine December 29, 2024 1:1 4pm Parkinsons December 29, 2024 1:1 4pm Suprapubic catheter December 29, 2024 1:1 4pm Chief Complaint Admit Date e78.5 e11.9 November 28, 2024 9:50am Unknown December 13, 2024 6:30pm 2 month f/u December 29, 2024 1:1 4pm Urinary Tract Infection / UTI January 1:55pm N39.0 Z93.59 February 15, 2025 1:3 1pm Reason for Visit Admit Date Depression December 29, 2024 1:1 4pm Diabetes December 29, 2024 1:1 4pm Migraine December 29, 2024 1:1 4pm Parkinsons December 29, 2024 1:1 4pm Sleep apnea December 29, 2024 1:1 4pm Suprapubic catheter December 29, 2024 1:1 4pm Chronic suprapubic catheter January 30, 2025 1:55pm Parkinsons January 30, 2025 1:5 5pm Recurrent UTI January 30, 2025 1:5 5pm Additional Source Comments (unrecognized sect ion and [...] section and content) DATE CREATED AUTHOR 04/09/2018 [facility] DATE CREATED AUTHOR AUTHOR'S ORGANIZ ATION 04/14/2018 [facility] DATE CREATED AUTHOR AUTHOR'S ORGANIZ ATION 04/14/2018 [facility] DATE CREATED AUTHOR AUTHOR'S ORGANIZ ATION 05/12/2020 [facility] DATE CREATED AUTHOR AUTHOR'S ORGANIZ ATION 09/17/2020 [facility] DATE CREATED AUTHOR AUTHOR'S ORGANIZ ATION 08/18/2021 [facility] DATE CREATED AUTHOR AUTHOR'S ORGANIZ ATION 09/10/2021 [facility] DATE CREATED AUTHOR AUTHOR'S ORGANIZ ATION 02/23/2022 [facility] DATE CREATED AUTHOR AUTHOR'S ORGANIZ ATION 12/15/2022 [facility] DATE CREATED AUTHOR AUTHOR'S ORGANIZ ATION 12/26/2022 [facility] DATE CREATED AUTHOR AUTHOR'S ORGANIZ ATION 03/29/2023 [facility] DATE CREATED AUTHOR AUTHOR'S ORGANIZ ATION 04/08/2024 [facility] DATE CREATED AUTHOR AUTHOR'S ORGANIZ ATION 04/24/2024 [facility] DATE CREATED AUTHOR AUTHOR'S ORGANIZ ATION 07/02/2024 [facility] DATE CREATED AUTHOR AUTHOR'S ORGANIZ ATION 10/02/[address] [facility] DATE CREATED AUTHOR AUTHOR'S ORGANIZ ATION 10/31/[address] [facility] DATE CREATED AUTHOR AUTHOR'S ORGANIZ ATION 12/04/[address] [facility] DATE CREATED AUTHOR AUTHOR'S ORGANIZ ATION 12/29/2024 [facility] DATE CREATED AUTHOR AUTHOR'S ORGANIZ ATION 02/20/2025 [facility] DATE CREATED AUTHOR AUTHOR'S ORGANIZ ATION 03/17/2025 [facility] DATE CREATED AUTHOR AUTHOR'S ORGANIZ ATION 03/18/2025 [facility] DATE CREATED AUTHOR AUTHOR'S ORGANIZ ATION 04/04/2025 [facility] DATE CREATED AUTHOR AUTHOR'S ORGANIZ ATION 04/29/2025 [facility] DATE CREATED AUTHOR AUTHOR'S ORGANIZ ATION 05/17/2025 [facility] Source Comments (unrecognize d section and content) In the event this informatio n is protected by the Federal Confidentiality of Alcohol and Drug Abuse Patient Records regulations: The Federal rules restrict any use of the information to criminally investigate or prosecute any alcohol or drug abuse patient.[facility] the event this information is protected by the Federal Confidentiality of Alcohol and Drug Abuse Patient Records regulations: The Federal rules restrict any use of the information to criminally investigate or prosecute any alcohol or drug abuse patient.[facility] the event this information is protected by the Federal Confidentiality of Alcohol and Drug Abuse Patient Records regulations: The Federal rules restrict any use of the information to criminally investigate or prosecute any alcohol or drug abuse patient.[facility] HospitalIn the event this information is protected by the Federal Confidentiality of Alcohol and Drug Abuse Patient Records regulations: The Federal rules restrict any use of the information to criminally investigate or prosecute any alcohol or drug abuse patient.[facility] HospitalIn the event this information is protected by the Federal Confidentiality of Alcohol and Drug Abuse Patient Records regulations: The Federal rules restrict any use of the information to criminally investigate or prosecute any alcohol or drug abuse patient.[facility] HospitalIn the event this information is protected by the Federal Confidentiality of Alcohol and Drug Abuse Patient Records regulations: The Federal rules restrict any use of the information to criminally investigate or prosecute any alcohol or drug abuse patient.[facility] Reason for Visit (unrecogniz ed section and content) Reason Comments Post Op Reason Comments Medication Problem Reason Onset Date Comments No Show 12/24/2022 No show Reason Comments Radiology CT Reason Onset Date Comments Med Refill 10/24/2024 Reason Onset Date Comments Med Refill 11/19/2024 Reason Comments Med Refill Reason Onset Date Comments Med Refill 11/23/2024 Reason Onset Date Comments Med Refill 02/13/2024 Reason Onset Date Comments Med Refill 02/09/2024 Reason Onset Date Comments Med Refill 02/22/2024 Reason Onset Date Comments Med Refill 11/09/2023 Reason Comments Aortic Aneurysm 1 month follow up fo r AAA Dissection, Critical limb ischemia. Recent testing. Reason Onset Date Comments Med Refill 12/11/2023 Reason Onset Date Comments Med Refill 05/24/2024 Reason Comments LE Pain and Swelling Reason Onset Date Comments Med Refill 07/14/2024 Reason Onset Date Comments Med Refill 07/31/2024 Reason Onset Date Comments Med Refill 09/26/2024 Reason Onset Date Comments Med Refill 09/25/2024 Reason Comments 1 year follow up no testing Reason Onset Date Comments Med Refill 04/04/2025 Care Teams (unrecognized sec tion and content) General Internist And Physician Leader Relationship Specialty Start Date End Date Ellen Crabtree [address] [place] [phone] PCP - General 06/10/02 General Internist And Physician Leader Relationship Specialty Start Date End Date Ellen Crabtree DO PCP - General Family Medicine 01/23/22 General Internist And Physician Leader Relationship Specialty Start Date End Date Leyda Ellen Wymaner [address] [place] [phone] PCP - General 06/10/02 General Internist And Physician Leader Relationship Specialty Start Date End Date Leyda Ellen Wymaner [address] [place] [phone] PCP - General 06/10/02 General Internist And Physician Leader Relationship Specialty Start Date End Date Ellen Crabtree [address] [place], [place] [phone] PCP - General 06/10/02 General Internist And Physician Leader Relationship Specialty Start Date End Date Ellen Crabtree [address] [place], [place] [phone] PCP - General 06/10/02 General Internist And Physician Leader Relationship Specialty Start Date End Date Ellen Crabtree Boogie [address] [place], [place] [phone] PCP - General 06/10/02 Team Status: Active Member Role Status Dates Samira Bowden Specialist Active Ren Watson MD Specialist [...] Inactive Member Role Status Dates Ellen Crabtree , DO Primary Care Provider Active Sta rt: [...] Other Provider Active Start: February 11, 2024 Team Status: Active Member Role Status Aneta Crabtree DO Primary Care Provide r, Attending Provider Active Start: April 23, 2024 Team Status: Active Member Role Status Aneta Crabtree DO Primary Care Provider Active Sta rt: April 24, 2024 Jose Alejandro House MD Attending Provider Active Star t: April 24, 2024 Team Status: Active Member Role Status Aneta Crabtree DO Primary Care Provider Active Sta rt: April 24, 2024 End: April 27, 2024 Edd Villarreal DO Attending Provider Active Sta rt: April 24, 2024 End: April 27, 2024 Jose Alejandro House MD Referring Provider Active Star t: April 24, 2024 End: April 27, 2024 Team Status: Active Member Role Status Aneta Crabtree DO Primary Care Provider Active Sta rt: April 25, 2024 Jose Alejandro House MD Attending Provider Active Star t: April 25, 2024 Team Status: Active Member Role Status Aneta Crabtree DO Primary Care Provider Active Sta rt: April 26, 2024 Jose Alejandro House MD Attending Provider Active Star t: April 26, 2024 Team Status: Active Member Role Status Aneta Crabtree DO Primary Care Provider Active Sta rt: April 27, 2024 Jose Alejandro House MD Attending Provider Active Star t: April 27, 2024 Team Status: Active Member Role Status Aneta Crabtree DO Primary Care Provider Active Sta rt: May 25, 2024 ANEESH Kirk Attending Provider Active Start: May 25, 2024 Team Status: Inactive Member Role Status Dates Ellen Crabtree DO Primary Care Provide r, Attending Provider Active Start: June 21, 2024 End: June 21, 2024 General Internist And Physician Leader Relationship Specialty Start Date End Date Ellen Crabtree DO [address] [place] [phone] PCP - General Family Medicine 01/17/21 General Internist And Physician Leader Relationship Specialty Start Date End Date Ellen Crabtree DO [address] [place] [phone] PCP - General Family Medicine 01/17/21 General Internist And Physician Leader Relationship Specialty Start Date End Date Ellen Crabtree DO [address] [place] [phone] PCP - General Family Medicine 01/17/21 General Internist And Physician Leader Relationship Specialty Start Date End Date Ellen Crabtree DO [address] [place] [phone] PCP - General Family Medicine 01/17/21 General Internist And Physician Leader Relationship Specialty Start Date End Date Ellen Crabtree DO [address] [place] [phone] PCP - General Family Medicine 01/17/21 General Internist And Physician Leader Relationship Specialty Start Date End Date Ellen Crabtree DO [address] [place] [phone] PCP - General Family Medicine 01/17/21 General Internist And Physician Leader Relationship Specialty Start Date End Date Ellen Crabtree DO [address] [place] [phone] PCP - General Family Medicine 01/17/21 Team Status: Inactive Member Role Status Dates Ellen Crabtree DO Primary Care Provider Active Sta rt: September 27, 2024 End: September 27, 2024 Benitez Ortega DO Emergency Provider Active Start: September 27, 2024 End: September 27, 2024 Team Status: Inactive Member Role Status Dates Ellen Crabtree DO Primary Care Provide r, Attending Provider Active Start: November 28, 2024 End: November 28, 2024 Heidy Marin MD Referring Provider Active S tart: November 28, 2024 End: November 28, 2024 General Internist And Physician Leader Relationship Specialty Start Date End Date Ellen Crabtree DO [address] [place] [phone] PCP - General Family Medicine 01/17/21 General Internist And Physician Leader Relationship Specialty Start Date End Date Ellen Crabtree DO [address] [place], [place] [phone] PCP - General Family Medicine 01/17/21 General Internist And Physician Leader Relationship Specialty Start Date End Date Ellen Crabtree DO [address] [place] [phone] PCP - General Family Medicine 01/17/21 General Internist And Physician Leader Relationship Specialty Start Date End Date Ellen Crabtree DO [address] [place] [phone] PCP - General Family Medicine 01/17/21 General Internist And Physician Leader Relationship Specialty Start Date End Date Ellen Crabtree DO [address] [place] [phone] PCP - General Family Medicine 01/17/21 General Internist And Physician Leader Relationship Specialty Start Date End Date Ellen Crabtree DO [address] [place] [phone] PCP - General Family Medicine 01/17/21 General Internist And Physician Leader Relationship Specialty Start Date End Date Ellen Crabtree DO [address] [place] [phone] PCP - General Family Medicine 01/17/21 General Internist And Physician Leader Relationship Specialty Start Date End Date Ellen Crabtree DO PCP - General Family Medicine 01/17/21 General Internist And Physician Leader Relationship Specialty Start Date End Date Ellen Crabtree DO PCP - General Family Medicine 01/17/21 General Internist And Physician Leader Relationship Specialty Start Date End Date Ellen Crabtree DO PCP - General Family Medicine 01/17/21 General Internist And Physician Leader Relationship Specialty Start Date End Date Ellen Crabtree DO [address] [place] [address] PCP - General Family Medicine 01/17/21 Team Status: Active Member Role Status Dates Samira Bowden Specialist Active Ren Watson MD Specialist Active Graciela Macias LPN Care Manager Active Fidel Ibarra MD Specialist Active Bernice Shrestha DO Specialist Active Twyla Marin MD Specialist Active Team Status: Active Member Role Status Dates Ellen Crabtree DO Primary Care Provider Active Sta rt: December 13, 2024 Mercedez Cramer MD Attending Provider Active Sta rt: December 13, 2024 Team Status: Inactive Member Role Status Dates Mercedez Cramer MD Attending Provider Active Sta rt: December 13, 2024 End: December 13, 2024 Team Status: Active Member Role Status Dates Samira Bow[place] Specialist Active Ren Watson MD Specialist Active Graciela Macias LPN Care Manager Active Fidel Ibarra MD Specialist Active Bernice Shrestha DO Specialist Active Twyla Marin MD Specialist Active Ellen Crabtree DO Primary Care Provider Active Team Status: Inactive Member Role Status Dates Ellen Crabtree DO Primary Care Provide r, Attending Provider Active Start: December 29, 2024 End: December 29, 2024 Team Status: Active Member Role Status Dates Ellen Crabtree DO Primary Care Provider Active Sta rt: December 13, 2024 Edd Villarreal DO Attending Provider Active Sta rt: December 13, 2024 Team Status: Inactive Member Role Status Dates Ellen Crabtree DO Primary Care Provider Active Sta rt: January 30, 2025 End: January 30, 2025 Romel Leonardo MD Attending Provider Active Sta rt: January 30, 2025 End: January 30, 2025 Team Status: Inactive Member Role Status Dates Ellen Crabtree DO Primary Care Provider Active Sta rt: February 15, 2025 End: February 15, 2025 Romel Leonardo MD Attending Provider Active Sta rt: February 15, 2025 End: February 15, 2025 General Internist And Physician Leader Relationship Specialty Start Date End Date Ellen Crabtree DO [address] [place], [place] [phone] PCP - General Family Medicine 01/17/21 General Internist And Physician Leader Relationship Specialty Start Date End Date Ellen Crabtree DO [address] [place], [place] [phone] PCP - General Family Medicine 01/17/21 General Internist And Physician Leader Relationship Specialty Start Date End Date Ellen Crabtree DO [address] [place], [place] [phone] PCP - General Family Medicine 01/17/21 General Internist And Physician Leader Relationship Specialty Start Date End Date Ellen Crabtree DO [address] [place], [place] [phone] PCP - General Family Medicine 01/17/21 General Internist And Physician Leader Relationship Specialty Start Date End Date Ellen Crabtree DO [address] [place], [place] [phone] PCP - General Family Medicine 01/17/21 General Internist And Physician Leader Relationship Specialty Start Date End Date Ellen Crabtree DO [address] [place] [phone] PCP - General Family Medicine 01/17/21 Ordered Prescriptions (unrec ognized section and content) [...] Marion Sharma RN) 0533 (Given - Provider: Gldais Lezama RN)1000 (Given - Provider: Nevaeh Oviedo, ALFONSO) carbidopa-levodopa (SINEMET) 25-100 MG per tablet 1 [...] and 1000 0617 (Given - Provider: Lyn Hmamond RN)0857 (Given - Provider: Malik De La [...] Garza RN)1729 (Given - Provider: Malik De LaG arza RN) 0942 (Given - Provider: Marion Sharma [...] RN) 0849 (Given - Provider: Nevaeh Oviedo, ALFONSO) polyethylene glycol (GLYCOLAX) packet 17 g 17 [...] RN) 0942 (Given - Provider: Marion Sharma, ALFONSO)2019 (Given - Provider: Gladis Lezama RN) 0851 (Given - Provider: Nevaeh Oviedo RN)2099 (Due) QUEtiapine (SEROQUEL) tablet 25 mg 25 mg, Oral, NIGHTLY, First dose on Thu02/07/22 at 2099, Until Discontinued 2112 (Given - Provider: Peace Sol RN) 2014 (Given - Provider: Gladis Lezama RN) 2099 (Due) sennosides-docusate sodium (SENOKOT-S) 8.6-50 MG tablet 1 tablet 1 tablet, Oral, 2 TIMES DAILY, First dose on Thu02/07/22 at 2099, Until Discontinued, Post-op 08 (Held - Provider: Malik De La Garza RN - Reason: Order parameters not met)2110 (Not Given - Provider: Peace Sol RN - Reason: Patient/family refused) 941 (Not Given - Provider: Marion Sharma RN - Reason: Patient/family refused)2005 (Not Given - Provider: Gladis Lezama RN - Reason: Patient/family refused) 844 (Not Given - Provider: Nevaeh Oviedo RN - Reason: Other - Comment: loose stools)2099 (Due) sodium chloride flush 0.9 % injection 5-40 mL 5-40 mL, IntraVENous, EVERY 12 HOURS SCHEDULED (2 times per day), First dose on Thu02/07/22 at 2099, Until Discontinued, For Line Patency: Peripheral IV [...] RN)2111 (Given - Provider: Peace Sol RN) 948 (Given - Provider: Marion Sharma RN)2020 (Given - Provider: Gladis Lezama RN) 0857 [...] 0942 (Given - Provider: Marion Sharma, ALFONSO) 0850 (Given - Provider: Nevaeh Oviedo, RN) [...] at 1617, Until Discontinued, Muscle spasms, Post-op 855 (Given - Provider: Malik De La Garza [...] Macrina Garay RN)0856 (See Alternative - Provider: aMlik De La Garza RN)1541 (See Alternative - Provider: Malik De La Garza RN) 0518 (Given - Provider: Peace Sol RN)1346 (Given - Provider: Marion Sharma RN)2004 (Given - Provider: Gladis Lezama RN) 0531 (Given - Provider: Gladis Lezama RN)1145 (Given - Provider: Nevaeh Oviedo, ALFONSO) oxyCODONE-acetaminophen (PERCOCET) 5-325 MG per tablet 1 tablet(Linked Group 3) Mg/kg dosing is based on the oxycodone component., 1 tablet, Oral, EVERY 6 HOURS PRN, Starting on Thu02/07/22 at 1827, Until Discontinued, Pain Severe (7-10), Maximum dose of acetaminophen is 4000 mg from all sources in 24 hours. 0250 (See Alternative - Provider: Macrina Garay RN)0856 (Given - Provider: Malik De La Garza, RN)1541 (Given - Provider: Malik De La Garza RN) 0518 (See Alternative - Provider: Peace Sol, RN)1346 (See Alternative - Provider: Marion Sharma RN)2004 (See Alternative - Provider: Gladis Lezama RN) 530 (See Alternative - Provider: Gladis Lezama RN)1145 [...] (4-6), pain 1947 (Given - Provider: Peace Sol, RN) Linked Groups Order Group 1: carbidopa-levodopa [...] BE BASED ON THE PRIMARY CLINICAL RECORDS. [facility] [employer] [facility]. provides no warranty or guarantee of the accuracy or completeness of information in this document.
--- NOTE | 2025-06-02 10:53 | XR_ITS ---
The [address] [address] Patient Name: ALISIA CORREA MRN: [id number] date: 1960 Sex: M Assigned Patient Location: ER Current Patient Location: ER Accession/Order Number: [id number] Exam Date: 06/02/2025 11:53 Report Date: 06/02/2025 11:55 At the request of: SILVESTRE ALFARO MD Procedure: XR shoulder LT min 2V LEFT SHOULDER - - 4 views CLINICAL HISTORY: fall COMPARISON: None FINDINGS: Left shoulder prosthesis is in place with what appears to be a more vertically orientated humeral component with respect to the glenoid. No definitive fracture is seen. Degenerative changes are noted involving the AC joint. XR/XR shoulder LT min 2V IMPRESSION: LEFT SHOULDER PROSTHESIS IS IN PLACE WITH WHAT APPEARS TO BE A MORE VERTICALLY ORIENTED HUMERAL COMPONENT WITH RESPECT TO THE GLENOID. HARDWARE COMPLICATION CANNOT BE EXCLUDED. CORRELATION WITH PHYSICAL EXAM IS SUGGESTED. Impression dictated by: Steven Shah Jr., D.O. 06/02/2025 11:55 AM Dictation Location: [facility] Electronically authenticated by: [id number] Y Date: 06/02/2025 11:55
--- NOTE | 2025-06-02 10:53 | XR_ITS ---
The [address] [address] Patient Name: ALISIA CORREA MRN: [id number] date: 1960 Sex: M Assigned Patient Location: ER Current Patient Location: ER Accession/Order Number: [id number] Exam Date: 06/02/2025 11:55 Report Date: 06/02/2025 11:57 At the request of: SILVESTRE ALFARO MD Procedure: XR hip RT min 2V RIGHT HIP - 2 views: CLINICAL HISTORY: fall COMPARISON: None FINDINGS: Right hip prosthesis without radiographic complication. No acute bony process. Heterotopic ossification is seen along the greater trochanter. XR/XR hip RT min 2V IMPRESSION: NO ACUTE BONY PROCESS.. Impression dictated by: Steven Shah Jr., D.O. 06/02/2025 11:57 AM Dictation Location: [place] [address] Electronically authenticated by: [id number] Y Date: 06/02/2025 11:57
--- NOTE | 2025-06-02 10:53 | CT_ITS ---
The [address] [address] Patient Name: ALISIA CORREA MRN: [id number] date: 1960 Sex: M Assigned Patient Location: ER Current Patient Location: ER Accession/Order Number: [id number] Exam Date: 06/02/2025 11:40 Report Date: 06/02/2025 11:44 At the request of: SILVESTRE ALFARO MD Procedure: CT lumbar spine wo con CT thoracic spine wo con, CT lumbar spine wo con 06/02/2025 11:29 AM History:Fall. TECHNIQUE: Multi detector CT axial slices of the thoracic and lumbar spines were obtained without IV contrast. Volumetric acquisition sagittal, coronal, and 3-D reconstructions were performed and reviewed on a separate workstation. CT was performed with one or more of the following dose reduction techniques: Automated exposure control, adjustment of the mA and/or kV according to patient size, or use of iterative reconstruction technique. COMPARISON: CT thoracic spine 10/08/2022 FINDINGS: Thoracic spine: No fracture is seen. Scattered endplate degenerative changes. Vertebral body heights appear maintained. Neurostimulator device is noted. No paraspinal mass. Visualized lung parenchyma demonstrates consolidative changes involving the left lung base. Lumbar spine: Posterior hardware fixation L2-S1 without hardware complication. No fracture. Vertebral body heights appear maintained. Scattered endplate and facet joint degenerative changes. Vacuum disc phenomenon involving the visualized thoracic spine as well as L1-L2. Transverse processes appear grossly intact. No paraspinal mass. Visualized retroperitoneum demonstrates left nephrolithiasis. SI joints demonstrate degenerative change. CT/CT lumbar spine wo con IMPRESSION: No acute fracture involving the thoracic or lumbar spines. Impression dictated by: Steven Shah Jr., D.O. 06/02/2025 11:44 AM Dictation Location: [email or web address] Electronically authenticated by: [id number] Y Date: 06/02/2025 11:44
--- NOTE | 2025-06-02 10:53 | XR_ITS ---
The [address] [address] Patient Name: ALISIA CORREA MRN: [id number] date: 1960 Sex: M Assigned Patient Location: ER Current Patient Location: ER Accession/Order Number: [id number] Exam Date: 06/02/2025 11:53 Report Date: 06/02/2025 11:53 At the request of: SILVESTRE ALFARO MD Procedure: XR knee RT 3V RIGHT KNEE - 3 views CLINICAL HISTORY: fall COMPARISON: None FINDINGS: Right TKA without radiographic complication or acute bony process. Bones are grossly demineralized. XR/XR knee RT 3V IMPRESSION: NO ACUTE BONY PROCESS. Impression dictated by: Steven Shah Jr., D.OAlejandro 06/02/2025 11:53 AM Dictation Location: [place] [address] Electronically authenticated by: [id number] Y Date: 06/02/2025 11:53
--- NOTE | 2025-06-02 10:53 | CT_ITS ---
The [address] [address] Patient Name: ALISIA CORREA MRN: [id number] date: 1960 Sex: M Assigned Patient Location: ER Current Patient Location: ER Accession/Order Number: [id number] Exam Date: 06/02/2025 11:33 Report Date: 06/02/2025 11:38 At the request of: SILVESTRE ALFARO MD Procedure: CT head/brain wo con CT BRAIN WITHOUT CONTRAST: CLINICAL HISTORY: Fall. Hit back of head COMPARISON: CT brain 07/06/2024 TECHNIQUE: Contiguous axial unenhanced images were obtained through the brain. This CT exam was performed using one or more following dose reduction techniques: Automated exposure control, adjustment of the mA and/or kV according to patient size, or use of iterative reconstruction technique. FINDINGS: There is no evidence of midline shift, intra or extra-axial fluid collection, hemorrhage or CT evidence of stroke. Cortical atrophy with chronic vascular ischemic changes. Posterior fossa appears unremarkable. Visualized intraorbital contents demonstrate no acute findings. Visualized paranasal sinuses are clear. The surrounding soft tissues are normal. CT/CT head/brain wo con IMPRESSION: NO ACUTE INTRACRANIAL ABNORMALITY. Impression dictated by: Steven Shah Jr., D.O. 06/02/2025 11:38 AM Dictation Location: [place] [address] Electronically authenticated by: [id number] Y Date: 06/02/2025 11:38
--- NOTE | 2025-06-02 10:53 | CT_ITS ---
The [address] [address] Patient Name: ALISIA CORREA MRN: [id number] date: 1960 Sex: M Assigned Patient Location: ER Current Patient Location: ER Accession/Order Number: [id number] Exam Date: 06/02/2025 11:40 Report Date: 06/02/2025 11:44 At the request of: SILVESTRE ALFARO MD Procedure: CT lumbar spine wo con CT thoracic spine wo con, CT lumbar spine wo con 06/02/2025 11:29 AM History:Fall. TECHNIQUE: Multi detector CT axial slices of the thoracic and lumbar spines were obtained without IV contrast. Volumetric acquisition sagittal, coronal, and 3-D reconstructions were performed and reviewed on a separate workstation. CT was performed with one or more of the following dose reduction techniques: Automated exposure control, adjustment of the mA and/or kV according to patient size, or use of iterative reconstruction technique. COMPARISON: CT thoracic spine 10/08/2022 FINDINGS: Thoracic spine: No fracture is seen. Scattered endplate degenerative changes. Vertebral body heights appear maintained. Neurostimulator device is noted. No paraspinal mass. Visualized lung parenchyma demonstrates consolidative changes involving the left lung base. Lumbar spine: Posterior hardware fixation L2-S1 without hardware complication. No fracture. Vertebral body heights appear maintained. Scattered endplate and facet joint degenerative changes. Vacuum disc phenomenon involving the visualized thoracic spine as well as L1-L2. Transverse processes appear grossly intact. No paraspinal mass. Visualized retroperitoneum demonstrates left nephrolithiasis. SI joints demonstrate degenerative change. CT/CT thoracic spine wo con IMPRESSION: No acute fracture involving the thoracic or lumbar spines. Impression dictated by: Steven Shah Jr., D.O. 06/02/2025 11:44 AM Dictation Location: [facility] Electronically authenticated by: [id number] Y Date: 06/02/2025 11:44
--- NOTE | 2025-06-02 10:53 | CT_ITS ---
The [address] [address] Patient Name: ALISIA CORREA MRN: [id number] date: 1960 Sex: M Assigned Patient Location: ER Current Patient Location: ER Accession/Order Number: [id number] Exam Date: 06/02/2025 11:38 Report Date: 06/02/2025 11:40 At the request of: SILVESTRE ALFARO MD Procedure: CT cervical spine wo con CT CERVICAL SPINE WITHOUT CONTRAST WITH 3D RECONSTRUCTIONS: CLINICAL HISTORY: fall COMPARISON: CT cervical spine 11/13/2021 TECHNIQUE: Spiral axial unenhanced images were obtained through the cervical spine. Sagittal, coronal and 3D volume-rendered reconstructions were also reviewed. This CT exam was performed using one or more following dose reduction techniques: Automated exposure control, adjustment of the mA and/or kV according to patient size, or use of iterative reconstruction technique. FINDINGS: Anterior fusion hardware C6-T1. Vertebral body heights appear maintained. Moderate spondylosis C5-6. Diffuse endplate and facet joint degenerative changes with 3 mm of anterior subluxation of C4 on C5. No fracture is seen. No prevertebral soft tissue swelling. Visualized lung apices are clear. CT/CT cervical spine wo con IMPRESSION: NO CERVICAL SPINE FRACTURE Impression dictated by: Steven Shah Jr., D.OAlejandro 06/02/2025 11:40 AM Dictation Location: [place] Electronically authenticated by: [id number] Y Date: 06/02/2025 11:40
--- NOTE | 2025-06-02 10:55 | ED.GENADUL1 ---
HPI HPI - General Adult General Chief complaint: Fall Stated complaint: FALL - BACK PAIN 05/30 Time Seen by Provider: 06/02/25 10:50 Source: patient Mode of arrival: Wheelchair Limitations: no limitations History of Present Illness HPI narrative: 64-year-old male presented to the emergency department for pain after a fall. He fell this morning, 3 days ago. He is complaining of pain in his right knee and right hip and left shoulder and his entire back and his neck and his head. He states he does not take blood thinners. He is in a motorized wheelchair and was able to transfer himself from the motorized wheelchair to the stretcher. The pain hurts more when he moves and its moderate. Related Data Home Medications ?Medication ?Instructions ?Recorded ?Confirmed atorvastatin 10 mg tablet 10 mg PO .QHS 08/20/23 07/06/24 carbidopa 25 mg-levodopa 100 mg 3 tab PO DAILY@0600 08/20/23 07/06/24 tablet docusate sodium 100 mg capsule 100 mg PO DAILY PRN constipation 08/20/23 07/06/24 ezetimibe 10 mg tablet 10 mg PO .QHS 08/20/23 07/06/24 midodrine 5 mg tablet 5 mg PO TID 08/20/23 07/06/24 montelukast 10 mg tablet 10 mg PO DAILY 08/20/23 07/06/24 pregabalin 300 mg capsule 300 mg PO BID 08/20/23 07/06/24 tolterodine 4 mg capsule,extended 4 mg PO DAILY 08/20/23 07/06/24 release 24 hr topiramate 100 mg tablet 100 mg PO BID 08/20/23 07/06/24 carbidopa ER 25 mg-levodopa 100 mg 1 tab PO TID 08/21/23 07/06/24 tablet,extended release potassium citrate 15 mEq (1,620 15 meq PO .QHS 08/21/23 07/06/24 mg) tablet,extended release carbidopa 25 mg-levodopa 100 mg 2 tab PO DAILY@1000 04/23/24 07/06/24 tablet (Sinemet) ciclopirox 0.77 % topical cream 1 applic topical BID 04/23/24 07/06/24 venlafaxine 150 mg 150 mg PO DAILY 04/23/24 07/06/24 capsule,extended release 24 hr carbidopa 25 mg-levodopa 100 mg 1 tab PO TID 04/24/24 07/06/24 tablet (Sinemet) duloxetine 60 mg capsule,delayed 60 mg PO .QHS 04/24/24 07/06/24 release (Cymbalta) fludrocortisone 0.1 mg tablet 0.1 mg PO DAILY 04/24/24 07/06/24 midodrine 5 mg tablet 10 mg PO TID 04/24/24 05/16/24 wobjpdz-kiyjjowhvrhrt-lxzewgcj 250 2 tab PO DAILY PRN migraine 05/12/24 07/06/24 mg-250 mg-65 mg tablet (Excedrin headache Migraine) dicyclomine 10 mg capsule 10 mg PO BID 05/12/24 07/06/24 ondansetron HCl 4 mg tablet 4 mg PO Q6H PRN nausea and vomiting 05/12/24 07/06/24 wound dressings (Triad Wound 1 applic topical TID PRN skin 05/12/24 07/06/24 Dressing paste) irritation collagenase clostridium histo. 250 1 applic topical DAILY 07/06/24 07/06/24 unit/gram topical ointment (Santyl) sumatriptan succinate 50 mg tablet 50 mg PO Q2H PRN migraine headache 07/06/24 07/06/24 Previous Rx's ?Medication ?Instructions ?Recorded tramadol 50 mg tablet 50 mg PO Q6H PRN pain 5 days #20 04/27/24 tabs docusate sodium 100 mg capsule 100 mg PO BID #10 caps 06/22/24 (Colace) sulfamethoxazole 800 1 tab PO BID 7 days #14 tabs 06/22/24 mg-trimethoprim 160 mg tablet (Bactrim DS) tramadol 50 mg tablet 50 mg PO Q6H PRN pain 2 days #8 06/22/24 tabs ziriqawxci-sxukvbvbwogjl-xfmixlut 1 cap PO Q6H PRN headache #12 caps 07/06/24 50 mg-300 mg-40 mg capsule (Fioricet) cefdinir 300 mg capsule 300 mg PO BID 7 days #14 caps 07/06/24 ondansetron 4 mg disintegrating 4 mg PO Q6H PRN nausea and 07/06/24 tablet vomiting #12 tabs ciprofloxacin HCl 500 mg tablet 500 mg PO BID #14 tabs 12/13/24 (Cipro) acetaminophen 300 mg-codeine 30 mg 1 tab PO Q6H PRN pain 5 days #20 06/02/25 tablet tabs Allergies Allergy/AdvReac Type Severity Reaction Status Date / Time clonazepam Allergy Severe Difficulty Verified 06/22/24 18:48 Breathing levofloxacin (From Levaquin) Allergy Severe Difficulty Verified 06/22/24 18:48 Breathing moxifloxacin Allergy Intermediate Hives Verified 06/22/24 18:48 celecoxib (From Celebrex) Allergy Mild Hives Verified 06/22/24 18:48 erythromycin base Allergy Mild Gastrointestinal Verified 06/22/24 18:48 Upset Opioid HPI Opioid Management Most Recent Opioid Data: Last Pain Scale 8 Today, 11:53 Last Pain Intensity 5 04/25/24, 09:14 Last MAR Pain Assessment Today, 11:53 Last ORT Total Score 0 04/23/24, 20:47 Last ORT Risk Category Low Risk 04/23/24, 20:47 Review of Systems ROS Narrative A ten point review of systems is negative except as noted above. 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 ?G90.3 - Multi-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 (ICD-10) Type 2 diabetes mellitus with diabetic polyneuropathy ?E11.42 - Type 2 diabetes mellitus with diabetic polyneuropathy (ICD-10) Parkinson disease ?G20.A1 - Parkinson's disease without dyskinesia, without mention of fluctuations (ICD-10) Generalized weakness ?R53.1 - Weakness (ICD-10) Suprapubic catheter ?Z93.59 - Other cystostomy status (ICD-10) COPD (chronic obstructive pulmonary disease) ?J44.9 - Chronic obstructive pulmonary disease, unspecified (ICD-10) Breath shortness ?R06.02 - Shortness of breath (ICD-10) Urinary tract infection ?N39.0 - Urinary tract infection, site not specified (ICD-10) Complication, blocked Ferro catheter ?T83.091A - Other mechanical complication of indwelling urethral catheter, initial encounter (ICD-10) UTI (urinary tract infection) ?N39.0 - Urinary tract infection, site not specified (ICD-10) Bladder infection, chronic ?N30.20 - Other chronic cystitis without hematuria (ICD-10) Weakness of both lower extremities ?R29.898 - Other symptoms and signs involving the musculoskeletal system (ICD-10) Neurogenic bladder ?N31.9 - Neuromuscular dysfunction of bladder, unspecified (ICD-10) Neuropathy ?G62.9 - Polyneuropathy, unspecified (ICD-10) Tonsillectomy planned FH: bilateral hip replacements ?Z82.69 - Family history of other diseases of the musculoskeletal system and connective tissue (ICD-10) Enlarged prostate ?N40.0 - Benign prostatic hyperplasia without lower urinary tract symptoms (ICD-10) 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, unspecified (ICD-10) 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 - Malignant (primary) neoplasm, unspecified (ICD-10) Esophageal cancer ?C15.9 - Malignant neoplasm of esophagus, unspecified (ICD-10) Barretts esophagus ?K22.70 - Rust's esophagus without dysplasia (ICD-10) GERD without esophagitis ?K21.9 - Gastro-esophageal reflux disease without esophagitis (ICD-10) Asthma ?J45.909 - Unspecified asthma, uncomplicated (ICD-10) Pneumonia ?J18.9 - Pneumonia, unspecified organism (ICD-10) COVID-19 ?U07.1 - COVID-19 (ICD-10) Kidney stones ?N20.0 - Calculus of kidney (ICD-10) Bladder stones ?N21.0 - Calculus in bladder (ICD-10) Type 2 diabetes mellitus ?E11.9 - Type 2 diabetes mellitus without complications (ICD-10) Hypotension ?I95.9 - Hypotension, unspecified (ICD-10) Surgical History (Updated 08/06/23 @ 08:15 by Jorge Contreras) H/O cystoscopy ?Z98.890 - Other specified postprocedural states (ICD-10) S/P insertion of spinal cord stimulator ?Z96.89 - Presence of other specified functional implants (ICD-10) Status post right rotator cuff repair ?Z98.890 - Other specified postprocedural states (ICD-10) H/O hand surgery ?Z98.890 - Other specified postprocedural states (ICD-10) History of left knee replacement ?Z96.652 - Presence of left artificial knee joint (ICD-10) History of left shoulder replacement ?Z96.612 - Presence of left artificial shoulder joint (ICD-10) Previous back surgery ?Z98.890 - Other specified postprocedural states (ICD-10) H/O gastric bypass ?Z98.84 - Bariatric surgery status (ICD-10) Family History (Updated 08/20/23 @ 20:33 by Barbara Mauro RN) Mother Family history of hypertension Family history of diabetes mellitus Family history of COPD (chronic obstructive pulmonary disease) Brother Family history of cancer Other Family history of CHF (congestive heart failure) Social History Within the past year, how often did you have a drink containing alcohol: never Within the past year, how often did you have six or more drinks on one occasion: never Score interpretation: A score less than 4 is consistent with normal alcohol consumption. Smoking status: Former smoker Highest level of school completed/degree received: some college, no degree Are you now , , , , never or living with a partner: In a typical week, how many times do you talk on the telephone with family, friends, or neighbors: 3 or more times per week How often do you get together with friends or relatives: 3 or more times per week Little interest or pleasure in doing things: not at all Feeling down, depressed, or hopeless: not at all Feel stressed/tense/nervous/anxious/difficulty sleeping: to some extent Do you think of yourself as: straight/heterosexual Gender Identity: male Exam Narrative Exam Narrative: Nurses note and vital signs reviewed and patient is not hypoxic. General: The patient appears in no acute distress Skin: Warm, dry, no pallor noted. There is no rash noted. Head: Normocephalic, atraumatic Eye: Normal conjunctiva, no drainage Ears, Nose, Mouth, and Throat: oral mucosa is moist. Nares patent. Cardiovascular: Regular Rate and Rhythm Respiratory: Patient is in no distress, no accessory muscle use, lungs are clear to auscultation, no wheezing, rales or rhonchi Back: Diffuse tenderness present throughout the entire back. Presacral area has some erythema and some mild skin breakdown. GI: Soft and nontender Musculoskeletal: The right knee seems to be swollen compared to the contralateral. He has some tenderness in the left shoulder and the right hip as well. Neurological: A&O, normal speech Psychiatric: Cooperative Constitutional Vital Signs, click to edit/add: Last Vital Signs Temp 97.9 F 06/02/25 10:45 Pulse 56 L 06/02/25 10:45 Resp 20 06/02/25 10:45 BP 134/88 06/02/25 10:45 Pulse Ox 98 06/02/25 10:45 O2 Del Method Room Air 06/02/25 10:45 Course Vital Signs Vital signs: Vital Signs Temperature 97.9 F 06/02/25 10:45 Pulse Rate 56 L 06/02/25 10:45 Respiratory Rate 20 06/02/25 10:45 Blood Pressure 134/88 06/02/25 10:45 Pulse Oximetry 98 06/02/25 10:45 Oxygen Delivery Method Room Air 06/02/25 10:45 Temperature 97.9 F 06/02/25 10:45 Pulse Rate 56 L 06/02/25 10:45 Respiratory Rate 20 06/02/25 10:45 Blood Pressure 134/88 06/02/25 10:45 Pulse Oximetry 98 06/02/25 10:45 Oxygen Delivery Method Room Air 06/02/25 10:45 Medical Decision Making MDM Narrative Medical decision making narrative: CAT scans and x-rays did not show any definite acute findings. He has got good range of motion of his left shoulder and I do not suspect an acute injury. Esdras wrap was applied to his right knee and he is referred to orthopedics since he does not have a current orthopedist. Treatment diagnosis and follow-up were discussed with the patient. Differential Diagnosis Differential Diagnosis: Contusions, fractures, intracranial hemorrhage Imaging Data CT scan - head: Radiologist's impression: ITS Impressions Cervical Spine CT 06/02/25 10:53 IMPRESSION: NO CERVICAL SPINE FRACTURE Impression dictated by: Steven Shah Jr. DAlejandroOAlejandro 06/02/2025 11:40 AM Dictation Location: [place] [address] Electronically authenticated by: [id number] Y Date: 06/02/2025 11:[address] 06/02/25 10:53 IMPRESSION: NO ACUTE INTRACRANIAL ABNORMALITY. Impression dictated by: Steven Shah Jr., D.O. 06/02/2025 11:38 AM Dictation Location: [id number] Electronically authenticated by: [id number] Y Date: 06/02/2025 11:38 Hip X-Ray 06/02/25 10:53 IMPRESSION: NO ACUTE BONY PROCESS.. Impression dictated by: Steven Shah Jr., D.O. 06/02/2025 11:57 AM Dictation Location: [facility] Electronically authenticated by: [id number] Y Date: 06/02/2025 11:57 Knee X-Ray 06/02/25 10:53 IMPRESSION: NO ACUTE BONY PROCESS. Impression dictated by: Steven Shah Jr., D.O. 06/02/2025 11:53 AM Dictation Location: [facility] Electronically authenticated by: [id number] Y Date: 06/02/2025 11:[address] 06/02/25 10:53 IMPRESSION: No acute fracture involving the thoracic or lumbar spines. Impression dictated by: Steven Shah Jr., D.O. 06/02/2025 11:44 AM Dictation Location: [facility] Electronically authenticated by: [id number] Y Date: 06/02/2025 11:44 Shoulder X-Ray 06/02/25 10:53 IMPRESSION: LEFT SHOULDER PROSTHESIS IS IN PLACE WITH WHAT APPEARS TO BE A MORE VERTICALLY ORIENTED HUMERAL COMPONENT WITH RESPECT TO THE GLENOID. HARDWARE COMPLICATION CANNOT BE EXCLUDED. CORRELATION WITH PHYSICAL EXAM IS SUGGESTED. Impression dictated by: Steven Shah Jr., D.O. 06/02/2025 11:55 AM Dictation Location: [facility] Electronically authenticated by: [id number] Y Date: 06/02/2025 11:[address] 06/02/25 10:53 IMPRESSION: No acute fracture involving the thoracic or lumbar spines. Impression dictated by: Steven Shah Jr., D.O. 06/02/2025 11:44 AM Dictation Location: [facility] Electronically authenticated by: [id number] Y Date: 06/02/2025 11:44 Discharge Plan Discharge Chief Complaint: Fall Clinical Impression: Fall, Multiple contusions, Right knee sprain Patient Disposition: Home, Self-Care Time of Disposition Decision: 12:09 Condition: Good Mode of Transportation: Private Vehicle Prescriptions / Home Meds: New acetaminophen-codeine 300-30 mg tablet 1 tab PO Q6H PRN (Reason: pain) 5 Days Qty: 20 0RF No Action carbidopa-levodopa 25-100 mg tablet 3 tab PO DAILY@0600 atorvastatin 10 mg tablet 10 mg PO .QHS montelukast 10 mg tablet 10 mg PO DAILY pregabalin 300 mg capsule 300 mg PO BID Patient Comments: 0800, 1800 tolterodine 4 mg capsule,extended release 24hr 4 mg PO DAILY midodrine 5 mg tablet 5 mg PO TID Patient Comments: 1200,1400,1800 topiramate 100 mg tablet 100 mg PO BID Patient Comments: AT 0800,1800 docusate sodium 100 mg capsule 100 mg PO DAILY PRN (Reason: constipation) ezetimibe 10 mg tablet 10 mg PO .QHS potassium citrate 15 mEq tablet extended release 15 meq PO .QHS carbidopa-levodopa 25-100 mg tablet extended release 1 tab PO TID Patient Comments: 1400,1800,2200 ciclopirox 0.77 % cream 1 applic TOPICAL BID venlafaxine 150 mg capsule,extended release 24hr 150 mg PO DAILY carbidopa-levodopa [Sinemet] 25-100 mg tablet 2 tab PO DAILY@1000 fludrocortisone 0.1 mg tablet 0.1 mg PO DAILY Rx Instructions: DAILY AT 0800 MAY GIVE 2 TABLETS IF SBP < 100 midodrine 5 mg tablet 10 mg PO TID Rx Instructions: 12 PM, 1400 AND 1800 do not give last dose of day after 6PM or within 4 hrs of bedtime carbidopa-levodopa [Sinemet] 25-100 mg tablet 1 tab PO TID Rx Instructions: 1400,1800,2200 duloxetine [Cymbalta] 60 mg capsule,delayed release(DR/EC) 60 mg PO .QHS tramadol 50 mg tablet 50 mg PO Q6H PRN (Reason: pain) 5 Days Qty: 20 0RF Excedrin Migraine 250-250-65 mg tablet 2 tab PO DAILY PRN (Reason: migraine headache) dicyclomine 10 mg capsule 10 mg PO BID Triad Wound Dressing Paste 1 applic topical TID PRN (Reason: skin irritation) ondansetron HCl 4 mg tablet 4 mg PO Q6H PRN (Reason: nausea and vomiting) sulfamethoxazole-trimethoprim [Bactrim DS] 800-160 mg tablet 1 tab PO BID 7 Days Qty: 14 0RF docusate sodium [Colace] 100 mg capsule 100 mg PO BID Qty: 10 0RF tramadol 50 mg tablet 50 mg PO Q6H PRN (Reason: pain) 2 Days Qty: 8 0RF Rx Instructions: DX: M54.5 Santyl 250 unit/gram ointment 1 applic TOPICAL DAILY sumatriptan succinate 50 mg tablet 50 mg PO Q2H PRN (Reason: migraine headache) ondansetron 4 mg tablet,disintegrating 4 mg PO Q6H PRN (Reason: nausea and vomiting) Qty: 12 0RF cefdinir 300 mg capsule 300 mg PO BID 7 Days Qty: 14 0RF klcdgmvdis-ftxnebozukbbd-jjij [Fioricet] 50-300-40 mg capsule 1 cap PO Q6H PRN (Reason: headache) Qty: 12 0RF Rx Instructions: DX: R51.9 ciprofloxacin HCl [Cipro] 500 mg tablet 500 mg PO BID Qty: 14 0RF Print Language: Guyanese Instructions: Knee Sprain (ED), Fall Prevention for Older Adults (ED) Referrals: ELLEN ARIAS [Primary Care Provider, Family Practice] - 1 week DORA TIPTON [Referring]
[2025-06-02] MEDS: ONDANSETRON 4 MG RAPDIS TABLET SL ×2 (11:53→12:40)
[2025-06-02] MEDS: ACETAMINOPHEN 300 MG/ 30 MG CODEINE TABLET 1 TAB PO (11:53)
[2025-06-02 13:10] VITALS: BP 124/75; PULSE 58; O2SAT 96
[2025-06-02 13:12] VITALS: BP 124/75; PULSE 58; O2SAT 95
== END 2025-06-02 13:14 | disposition home or self-care (01) ==
PROVIDERS: Emergency Provider Emergency Medicine; PCP Family Medicine
DX: M25.561 Pain in right knee (principal); M25.551 Pain in right hip; M25.512 Pain in left shoulder; M54.9 Dorsalgia, unspecified; M54.2 Cervicalgia; R51.9 Headache, unspecified; W18.30XA Fall on same level, unspecified, initial encounter
CPT/HCPCS: 70450; 72125; 72128; 72131; 73030; 73502; 73562; 99284; Q0162

== ENCOUNTER 2025-06-06 12:39 | Outpatient (OUT) | payer MEDICARE, OTHER, SELFPAY ==
--- NOTE | 2025-06-06 12:47 | XR_ITS ---
The [address] [address] Patient Name: ALISIA CORREA MRN: [id number] date: 1960 Sex: M Assigned Patient Location: [facility] Current Patient Location: [facility] Accession/Order Number: [id number] Exam Date: 06/06/2025 13:36 Report Date: 06/06/2025 13:37 At the request of: LORA RMAOS MD Procedure: XR chest 2V PA AND LATERAL CHEST: CLINICAL HISTORY: Shoulder arthritis COMPARISON: 12/13/2024 FINDINGS: Enlarged cardiac mediastinal silhouette. Elevation left hemidiaphragm. Left basilar atelectasis and or scarring. Left-sided pacemaker device. Spinal stimulator leads project over the thoracic spine. Postsurgical changes lower cervical spine. Degenerative changes both shoulders. Evidence of left shoulder arthroplasty. Erosive changes left glenoid noted XR/XR chest 2V IMPRESSION: NO ACUTE CARDIOPULMONARY ABNORMALITY. PRIOR LEFT SHOULDER ARTHROPLASTY WITH EROSIVE CHANGES INVOLVING THE RESIDUAL LEFT GLENOID. Impression dictated by: Jose Rodriguez M.D. 06/06/2025 1:37 PM Dictation Location: [place] [address] Electronically authenticated by: [id number] Y Date: 06/06/2025 13:37
== END 2025-06-06 12:40 | disposition home or self-care (01) ==
PROVIDERS: PCP Family Medicine; Visit Provider Internal Medicine Cardiovascular Disease
DX: M19.019 Primary osteoarthritis, unspecified shoulder (principal); Z95.0 Presence of cardiac pacemaker
CPT/HCPCS: 71046

== ENCOUNTER 2025-06-14 23:47 | Emergency (ER) | payer MEDICARE, OTHER, SELFPAY ==
--- OUTSIDE RECORDS SUMMARY | 2025-06-05 11:10 | XMS_ITS | Encounter Summary ---
Author Organization [facility] Address [address] [place] [address] Care Team Providers Care Gauge Maker Name Role Phone Jaden Crabtree DO Primary Care Provider [phone] Reason for Referral * (Routine) - Pending Review Specialty Diagnoses / Procedures Referred By Agustina t Referred To Contact Procedures ECG 12 lead Antonio Lim MD [address] [place] [phone] Phone: tel: fax: Referral ID Status Reason Start Date Expiration Date V isits Requested Visits Authorized [id number] Pending Review 06/05/2025 06/05/2026 1 1 * (Routine) - Pending Review Specialty Diagnoses / Procedures Referred By Agustina molina Referred To Contact Procedures ECG 12 lead Antonio Lim MD [address] [place] [phone] Phone: tel: fax: Referral ID Status Reason Start Date Expiration Date V isits Requested Visits Authorized [id number] Pending Review 06/05/2025 06/05/2026 1 1 Reason for Visit * Auth/Cert (Routine) Specialty Diagnoses / Procedures Referred By Agustina t Referred To Contact Diagnoses Sinus pause Sinus pause [I45.5] Procedures ME OFFICE/OUTPT VISIT,PROCEDURE ONLY Implant PPM Antonio Lim MD [address] [place] [address] Phone: tel: fax: [facility] [address] [place] [address] Phone: tel: fax: Referral ID Status Reason Start Date Expiration Date Visits Re quested Visits Authorized [id number] 1 1 Encounter Details Date Type Department Care Team (Late st Contact Info) Description 06/05/2025 11:10 AM EDT - 06/05/2025 5:48 PM EDT Hospital [facility] [address] [place] [address] Antonio Lim MD [address] [place] [address] UTI symptoms (Primary Dx); Sinus pause; Shoulder arthritis Discharge Disposition: Home or Self Care () Social History Tobacco Use Types Packs/Day Years [...] Recorded Patient Health Questionnaire-2 Score 2 04/05/2025 Comments Unknown Sex and Gender Information Value Date Recorded Sex Assigned at Choose not to disclose 11:10 AM EDT Legal Sex Male 10:07 PM EDT Gender Identity Choose not to disclose 11:10 AM EDT Sexual Orientation Choose not to disclose 2024 11:10 AM EDT documented as of this encounter Last Filed Vital Signs Vital Sign Reading Time Taken Comments Blood Pressure 95/75 06/05/2025 5:30 PM EDT Pulse 67 06/05/2025 5:30 PM EDT Temperature - - Respiratory Rate 15 06/05/2025 5:30 PM EDT Oxygen Saturation 99% 06/05/2025 5:30 PM EDT Inhaled Oxygen Concentration - - Weight 90.7 kg (200 lb) 06/05/2025 11:26 AM EDT Height 177.8 cm (5' 10 ) 06/05/2025 11:26 AM EDT Body Mass Index 28.7 06/05/2025 11:26 AM EDT documented in this encounter Discharge Instructions * Attachments The following attachments cannot be sent through Care Everywhere. * Pacemaker Implantation Adult Care After (Paraguayan) * Moderate Conscious Sedation Adult Care After (Paraguayan) documented in this encounter Medications at Time of Discharge acarbose (Precose) 25 mg tablet Take 25 mg by mouth in the morning, afternoon, and at bedtime. albuterol 1.25 mg/3 mL nebulizer solution Inhale 1 ampule every 6 (six) hours if needed. 11/08/2019 albuterol sulfate 90 mcg/actuation aerosol powdr breath activated Inhale 2 puffs every 4 (four) hours. carbidopa-levodo pa (Sinemet CR) 25-100 mg ER tablet TAKE 1 TABLET BY MOUTH AT 2AM, 2 TABLETS AT 6AM AND 10AM, 1 TABLET AT 2PM, 6PM, AND 10PM. TAKE WITH SINEMET IR carbidopa-levodo pa (Sinemet) 25-100 mg tablet TAKE 2 TABLETS BY MOUTH AT 6AM AND 10AM, 1 TAB AT 2PM AND 6PM. AVOID PROTEIN 1 HOUR BEFORE OR AFTER EACH DOSE. TAKE ALONG WITH SINEMET CR. diclofenac (Voltaren) 75 mg EC tablet Take 75 mg by mouth in the morning and at bedtime. doxycycline (Monodox) 100 mg capsuleIndicatio ns:UTI symptoms Take 1 capsule (100 mg) by mouth two times daily for 10 days. Take with at least 8 ounces (large glass) of water, do not lie down for 30 minutes after 20 capsule 06/05/2025 06/15/2025 DULoxetine (Cymbalta) [address] capsule Take 60 mg by mouth in the morning. ezetimibe (Zetia) 10 mg tablet Take 10 mg by mouth in the morning. 02/19/2021 fludrocortisone (Florinef) 0.1 mg tablet TAKE TWO TABLETS BY MOUTH DAILY DIRECTED midodrine (Proamatine) 5 mg tablet Check blood pressure at 8 am, 12 pm and 6 pm. If top number is 110 or lower take 3 tablets (15 mg). If top number 111-149 take 2 tablets (10 mg) if top number is 150 or higher DO NOT TAKE. 12/06/2022 montelukast (Singulair) 10 mg tablet Take 10 mg by mouth in the morning. potassium citrate CR (Urocit-K-15) 15 mEq ER tablet Take 15 mEq by mouth twice a day. 01/06/2024 pregabalin (Lyrica) 300 mg capsule take one capsule by mouth twice a day for 30 days tolterodine LA (Detrol LA) 4 mg 24 hr capsule Take 4 mg by mouth in the morning. topiramate (Topamax) 100 mg tablet Take 100 mg by mouth in the morning and at bedtime. traMADol (Ultram) 50 mg tablet take 1 tablet (50 mg total) by mouth every 6 (six) hours as needed for pain. venlafaxine XR (Effexor-XR) 150 mg 24 hr capsule Take 1 capsule by mouth in the morning. 03/06/2025 documented as of this encounter H&P Notes * Antonio Lim MD - 06/05/2025 1:43 PM EDT Images from the original note were not included. MT Electrophysiology Consult Note MT Cardiology - [facility] Reason for visit: Syncope HPI: Jamarcus García is a 64 y.o. year old with past medical history of Parkinson disease, diabetesmellitus type 2 with associated diabetic neuropathy, hypertension, COPD, peripheral vascular disease who has been known to have orthostatic hypotension with evident blood pressure drops who was previously treated with midodrine and subsequently pyridostigmine was added on. 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 [place] and subsequently for his autonomic hypotension and issues he has had a follow-up with Cherelle Botello, She had ordered an event monitor which showed evidence of pauses of 3 seconds noted on 04/12/2025 at10:30 AM PMH: Medical History[1] PSH: Surgical History[2] SH: Social Drivers of Health Tobacco Use: Medium Risk (04/05/2025) Patient History Smoking Tobacco Use: Former Smokeless Tobacco Use: Never Passive Exposure: Not on file Alcohol Use: Not on file Financial Resource Strain: Low Risk (11/25/2022) Received from [facility] Overall Financial Resource Strain (CARDIA) Difficulty of Paying Living Expenses: Not very hard Food Insecurity: No Food Insecurity (03/16/2025) Received from [facility] Hunger Screening Within the past 12 months we worried whether our food would run out before we got money to buy more.: Never True Within the past 12 months the food we bought just didn't last and we didn't have money to get more.: Never True Transportation Needs: No Transportation Needs (11/25/2022) Received from [facility] PRAPARE - Transportation Lack of Transportation (Medical): [...] Housing Stability: Low Risk (11/25/2022) Received from [facility] Housing Stability Vital Sign Unable to Pay for Housing in the Last Year: No Number of Places Lived in the Last Year: 2 Unstable Housing in the Last Year: No Utilities: Not on file Health Literacy: Not on file Allergies: Allergies[3] Weight: No weight available Visit Vitals BP 100/66 Pulse 64 Resp 16 Ht 1.778 m (5' 10 ) Wt 90.7 kg (200 lb) SpO2 97% BMI 28.70 kg/m?? Smoking Status Former BSA 2.12 m?? Meds: Medications Ordered Prior to Encounter[4] ROS: [...] , THYROID PEROXIDASE AB , BNP EKG: Encounter Date: 06/05/25 ECG 12 lead Result Value Ventricular Rate 63 Atrial Rate 63 ME Interval 164 QRS DURATION 90 QT Interval 440 QTC CALCULATION(BAZETT) 450 P Milmay -4 R-Milmay -31 T Wave Milmay 30 Impression Normal sinus rhythm Left axis deviation Abnormal ECG When compared with ECG of 08-APR-2016 03:47, Premature ventricular complexes are no longer Present Confirmed by Enmanuel KNOTT, ROSHNI Aleman ([id number]) on 06/05/2025 12:08:25 PM Echo: 04/24/2025 Stress test: Coronary angiogram: @CATH@ [...] The minor include discomfort over the incision site, erythema. The major complications include pneumothorax, hemothorax, thromboembolism including DVT stroke systemic emboli endorgan damage and even . We also discussed the possibility of lead perforationleading to pericardial effusion or tamponade which may or may not require surgical intervention as well as the possibility of valve damage. Overall the risk of these complications ranged anywhere from 1-5%. Patient verbalized understanding and have agreed to proceed with the procedure., Antonio Lim MD Cardiac Electrophysiology [facility] [1] Past Medical History: Diagnosis Date Abnormal ECG Arthritis COPD (chronic obstructive pulmonary disease) (CMS/HCC) CRPS (complex regional pain syndrome type I) Diabetes mellitus ([facility]) Essential tremor Hypertension MGUS (monoclonal gammopathy of unknown significance) Orthostatic hypotension [2] No past surgical history on file. [3] Allergies Allergen Reactions Celecoxib GI intolerance, Hives, Rash and Unknown Other reaction(s): GI Upset, Unknown Clonazepam Itching, Shortness of breath and Unknown Erythromycin Base Hives and Shortness of breath Levofloxacin Hives, Shortness of breath and Unknown Other reaction(s): Unknown Moxifloxacin Hives, Itching, Rash, Shortness of breath and Other Pimavanserin Hives Erythromycin Itching, Nausea And Vomiting, Nausea Only and Unknown Other reaction(s): Unknown [4] No current facility-administered medications on file prior to encounter. Current Outpatient Medications on File Prior to Encounter Medication Sig Dispense Refill acarbose (Precose) 25 mg tablet Take 25 mg by mouth in the morning, afternoon, and at bedtime. albuterol 1.25 mg/3 mL nebulizer solution Inhale 1 ampule every 6 (six) hours if needed. albuterol sulfate 90 mcg/actuation aerosol powdr breath activated Inhale 2 puffs every 4 (four) hours. carbidopa-levodopa (Sinemet CR) 25-100 mg ER tablet TAKE 1 TABLET BY MOUTH AT 2AM, 2 TABLETS AT 6AMAND 10AM, 1 TABLET AT 2PM, 6PM, AND 10PM. TAKE WITH SINEMET IR carbidopa-levodopa (Sinemet) 25-100 mg tablet TAKE 2 TABLETS BY MOUTH AT 6AM AND 10AM, 1 TAB AT 2PMAND 6PM. AVOID PROTEIN 1 HOUR BEFORE OR AFTER EACH DOSE. TAKE ALONG WITH SINEMET CR. diclofenac (Voltaren) 75 mg EC tablet Take 75 mg by mouth in the morning and at bedtime. DULoxetine (Cymbalta) [address] capsule Take 60 mg by mouth in the morning. ezetimibe (Zetia) 10 mg tablet Take 10 mg by mouth in the morning. fludrocortisone (Florinef) 0.1 mg tablet TAKE TWO TABLETS BY MOUTH DAILY DIRECTED midodrine (Proamatine) 5 mg tablet Check blood pressure at 8 am, 12 pm and 6 pm. If top number is 110 or lower take 3 tablets (15 mg). If top number 111-149 take 2 tablets (10 mg) if top number is 150 or higher DO NOT TAKE. montelukast (Singulair) 10 mg tablet Take 10 mg by mouth in the morning. pregabalin (Lyrica) 300 mg capsule take one capsule by mouth twice a day for 30 days tolterodine LA (Detrol LA) 4 mg 24 hr capsule Take 4 mg by mouth in the morning. topiramate (Topamax) 100 mg tablet Take 100 mg by mouth in the morning and at bedtime. traMADol (Ultram) 50 mg tablet take 1 tablet (50 mg total) by mouth every 6 (six) hours as needed for pain. venlafaxine XR (Effexor-XR) 150 mg 24 hr capsule Take 1 capsule by mouth in the morning. potassium citrate CR (Urocit-K-15) 15 mEq ER tablet Take 15 mEq by mouth twice a day. [DISCONTINUED] acetaminophen-caffeine 500-65 mg tablet Take 2 tablets by mouth every 6 (six) hours if needed. (Patient not taking: Reported on 06/05/2025) [DISCONTINUED] ascorbic acid (Vitamin C) 100 mg tablet Take 100 mg by mouth in the morning. (Patient not taking: Reported on 06/05/2025) [DISCONTINUED] atorvastatin (Lipitor) 10 mg tablet Take 10 mg by mouth in the morning. (Patient nottaking: Reported on 06/05/2025) [DISCONTINUED] Bactrim 400-80 mg tablet Take by mouth. (Patient not taking: Reported on 06/05/2025) [DISCONTINUED] yzyrkxgrtx-pajpskbjlkfrx-iqgm (Fioricet) 50-300-40 mg capsule TAKE 1 CAPSULE BY MOUTH EVERY 6 HOURS NEEDED FOR PAIN FOR 7 DAYS (Patient not taking: Reported on 06/05/2025) [DISCONTINUED] pyRIDostigmine (Mestinon) 60 mg tablet Take 30 mg by mouth three times daily. (Patient not taking: Reported on 06/05/2025) [DISCONTINUED] SUMAtriptan (Imitrex) 50 mg tablet TAKE 1 TABLET (50 MG TOTAL) BY MOUTH ONCE NEEDED FOR MIGRAINE FOR UP TO 180 DOSES. MAY REPEAT IN 2 HOURS IF UNRESOLVED. DO NOT EXCEED 20 (Patient not taking: Reported on 06/05/2025) documented in this encounter Procedure Notes * Antonio Lim MD - 06/05/2025 3:56 PM EDT Images from the original note were not included. DUAL CHAMBER PACEMAKER IMPLANT PROCEDURE NOTE DATE OF PROCEDURE: 06/05/25 PERFORMING PHYSICIAN: Dr. Antonio Lim CONSENT: Patient LOCATION: EP lab PROCEDURE PERFORMED: 1. Implantation of pacemaker (Biotronik) 2. Ultrasound guided venous access INDICATIONS: 1. Sinus node dysfunction PROCEDURAL SEDATION: Versed and Fentanyl. Moderate sedation was administered by the sedation nurse under my supervision and noted in the CVL log. Intraprocedural face to face sedation time: 76min. Monitoring: Cardiac telemetry, Blood pressure, continuous pulse oxymetry. FLUOROSCOPY TIME: 11.7min/ 108mGy EBL: 15cc SPECIMEN REMOVED: None PROCEDURAL DETAILS: Patient was placed in trendelenberg position and ultrasound was used to evaluate the patency of left axillary vein and for venous access. Left axillary venous access was obtained using modified seldinger technique using a 5 Beninese micro-puncture needle on two occasions and 0.35 wires were placed. Local infiltration of 1% Lidocaine was performed, and an incision was created in the left upper chest. Dissection was then performed using cautery down to the fascial plane above the muscle. The belly of the pectoralis was identified and with gentle blunt dissection a small pocketwas created for the device above the muscle. 6/9 Beninese Safesheaths were placed over the wire. An ac tive fixation Biotronik pacing lead was then delivered through the 9Fsheath and Selectra IIID-65/42sheath to the right ventricle. After confirmation of lead position on orthogonal views (BROOKS and ALBANIAN) to confirm septal position, the screw was activated, and the lead was placed in the right ventricular mid cavity towards the septum. This was confirmed with contrast administration. After confirmation of good sensing parameters, injury pattern and pacing thresholds, 10V pacing was done and no diaphragmatic stimulation was noted. Paced QRS revealed width of 112ms. It was then secured in the pocket using three 1-0 Silk sutures. Then an active fixation Biotronik lead was delivered through the 6Fsh eath to the right atrial appendage. After confirmation of lead position on orthogonal views (BROOKS and ALBANIAN), the screw was activated. Good sensing parameters, injury pattern and pacing thresholds, the lead was then tested using Lambert's maneuver. 10V pacing was done and no diaphragmatic stimulation was noted. It was then secured in the pocket using three 1-0 Silk sutures. Pocket hemostasis was secured, and it was then copiously and vigorously irrigated with antibiotic solution. The leads were attached to the generator and then wrapped under the device and the device was tacked to underlying muscle and placed in the pocket. The pocket was closed in layers: subcutaneous layer and skin using 2-0 Vicryl. Glue and steristrip was applied. Tegaderm dressing was placed on top. Lead parameters werethen rechecked through the device as noted below. The patient was returned to the short stay room for post procedural observation. No immediate procedural complications were noted. POST PROCEDURE EXAM: Patient was hemodynamically stable. COMPLICATIONS: None. IMPRESSION: 1. Successful dual chamber pacemaker with excellent pacing and sensing parameters. RECOMMENDATIONS: 1. Occlusive dressing to be removed after 2 weeks. 2. Do not wet the incision for 7 days. 3. No lifting heavy weights using arm on the same side x 3weeks 4. Do not lift elbow above the shoulder on the same side for 4-6 weeks. 5. No driving for 1 month. 6. F/u in device clinic 1 week from discharge or sooner for any concerns. Antonio Lim MD Cardiac Electrophysiology documented in this encounter Nursing Notes * Nusrat Sol RN - 06/05/2025 5:34 PM EDT RN educated pt on d/c instructions. This included: site care, limited physical activity, resume normal diet, future appointments, medications, and moderate sedation instructions. RN educated pt on when to notify physician and when to go to the hospital. RN provided pt with arm sling and educated pt on importance of not lifting arm above 90 degrees, weight bearing more than 5lbs, and driving for the next 4 weeks. RN encouraged pt to voice any questions or concerns, and answered any questions or concerns if pt verbalized. * Kinsey Glez RN - 06/05/2025 11:28 AM EDT CHG wipes and betadine nasal swabs completed. documented in this encounter Miscellaneous Notes * Pre-Sedation Documentation - Antonio Lim MD - 06/05/2025 1:44 PM EDT Patient: Jamarcus García Procedure Information Date/Time: 06/05/25 1300 Procedure: Implant PPM - BIOTRONIC [facility] DIGITAL FORENSIC EXAMINER 1 / [facility] (Cath) Providers: Antonio Lim MD Clinical information reviewed: Allergies Meds Physical Exam Airway Mallampati: II TM distance: >3 FB Neck ROM: full Cardiovascular Dental Pulmonary Neurological Abdominal Anesthesia Plan ASA 3 CSE Anesthetic plan and risks discussed with patient. Use of blood products discussed with patient who. Additional Equipment Requests documented in this encounter Plan of Treatment Upcoming Encounters Date Type Department Care Team (Late st Contact Info) Description 07/11/2025 10:30 AM EDT Ancillary Procedure [facility] [address] [place] [address] Scheduled Orders Name Type Priority Associated Diagnoses Orde r Schedule XR chest 2 views Imaging Routine Shoulder arthritis Expected: 06/05/2025, Expires: 06/05/2026 documented as of this encounter Procedures Procedure Name Priority Date/Time Associated Diagnosis Comments ECG 12-LEAD Routine 06/05/2025 4:29 PM EDT IMPLANT PPM Routine 06/05/2025 3:52 PM EDT Sinus pause ECG 12-LEAD Routine 06/05/2025 11:46 AM EDT documented in this encounter Results * ECG 12 lead (06/05/2025 4:29 PM EDT) Ventricular Rate 80 BPM GE MUSE Atrial Rate 80 BPM GE MUSE ME Interval 124 ms GE MUSE QRS DURATION 116 ms GE MUSE QT Interval 428 ms GE MUSE QTC CALCULATION(BAZE TT) 493 ms GE MUSE R-Milmay -47 degrees GE MUSE T Wave Milmay 122 degrees GE MUSE 06/05/2025 4:26 PM EDT 06/05/2025 4:58 PM EDT Impressions GE MUSE - 06/05/2025 4:58 PM EDT AV dual-paced rhythm Abnormal ECG When compared with ECG of 05-JUN-2025 11:42, Electronic ventricular pacemaker has replaced Sinus rhythm Confirmed by Enmanuel KNOTT, ROSHNI Aleman ([id number]) on 06/05/2025 4:58:05 PM Narrative Procedure Note Roshni Knott MD - 06/05/2025 IMPRESSION: AV dual-paced rhythm Abnormal ECG When compared with ECG of 05-JUN-2025 11:42, Electronic ventricular pacemaker has replaced Sinus rhythm Confirmed by Enmanuel KNOTT SAMER J. ([id number]) on 06/05/2025 4:58:05 PM Antonio Lim MD ECG ORDERABLES Final Result GE MUSE * IMPLANT PPM (06/05/2025 3:52 PM EDT) Anatomical Region Laterality Modality Other Impressions 06/05/2025 3:57 PM EDT 1. Successful dual chamber pacemaker with excellent pacing and sensing parameters. RECOMMENDATIONS: 1. Occlusive dressing to be removed after 2 weeks. 2. Do not wet the incision for 7 days. 3. No lifting heavy weights using arm on the same side x 3weeks 4. Do not lift elbow above the shoulder on the same side for 4-6 weeks. 5. No driving for 1 month. 6. F/u in device clinic 1 week from discharge or sooner for any concerns. Antonio Lim MD Cardiac Electrophysiology Narrative 06/05/2025 3:57 PM EDT Images from the original result were not included. DUAL CHAMBER PACEMAKER IMPLANT PROCEDURE NOTE DATE OF PROCEDURE: 06/05/25 PERFORMING PHYSICIAN: Dr. Antonio Lim CONSENT: Patient LOCATION: EP lab PROCEDURE PERFORMED: 1. Implantation of pacemaker (Biotronik) 2. Ultrasound guided venous access INDICATIONS: 1. Sinus node dysfunction PROCEDURAL SEDATION: Versed and Fentanyl. Moderate sedation was administered by the sedation nurse under my supervision and noted in the CVL log. Intraprocedural face to face sedation time: 76min. Monitoring: Cardiac telemetry, Blood pressure, continuous pulse oxymetry. FLUOROSCOPY TIME: 11.7min/ 108mGy EBL: 15cc SPECIMEN REMOVED: None PROCEDURAL DETAILS: Patient was placed in trendelenberg position and ultrasound was used to evaluate the patency of left axillary vein and for venous access. Left axillary venous access was obtained using modified seldinger technique using a 5 Beninese micro-puncture needle on two occasions and 0.35 wires were placed. Local infiltration of 1% Lidocaine was performed, and an incision was created in the left upper chest. Dissection was then performed using cautery down to the fascial plane above the muscle. The belly of the pectoralis was identified and with gentle blunt dissection a small pocket was created for the device above the muscle. 6/9 Beninese Safesheaths were placed over the wire. An active fixation Biotronik pacing lead was then delivered through the 9Fsheath and Selectra IIID-65/42 sheath to the right ventricle. After confirmation of lead position on orthogonal views (BROOKS and ALBANIAN) to confirm septal position, the screw was activated, and the lead was placed in the right ventricular mid cavity towards the septum. This was confirmed with contrast administration. After confirmation of good sensing parameters, injury pattern and pacing thresholds, 10V pacing was done and no diaphragmatic stimulation was noted. Paced QRS revealed width of 112ms. It was then secured in the pocket using three 1-0 Silk sutures. Then an active fixation Biotronik lead was delivered through the 6Fsheath to the right atrial appendage. After confirmation of lead position on orthogonal views (BROOKS and ALBANIAN), the screw was activated. Good sensing parameters, injury pattern and pacing thresholds, the lead was then tested using Lambert's maneuver. 10V pacing was done and no diaphragmatic stimulation was noted. It was then secured in the pocket using three 1-0 Silk sutures. Pocket hemostasis was secured, and it was then copiously and vigorously irrigated with antibiotic solution. The leads were attached to the generator and then wrapped under the device and the device was tacked to underlying muscle and placed in the pocket. The pocket was closed in layers: subcutaneous layer and skin using 2-0 Vicryl. Glue and steristrip was applied. Tegaderm dressing was placed on top. Lead parameters were then rechecked through the device as noted below. The patient was returned to the short stay room for post procedural observation. No immediate procedural complications were noted. POST PROCEDURE EXAM: Patient was hemodynamically stable. COMPLICATIONS: None. us Antonio Lim MD CV ELECTROPHYSIOLOGY PROCEDURES Final Result * ECG 12 lead (06/05/2025 11:46 AM EDT) [facility] Ventricular Rate 63 BPM GE MUSE Atrial Rate 63 BPM GE MUSE ME Interval 164 ms GE MUSE QRS DURATION 90 ms GE MUSE QT Interval 440 ms GE MUSE QTC CALCULATION(BAZE TT) 450 ms GE MUSE P Milmay -4 degrees GE MUSE R-Milmay -31 degrees GE MUSE T Wave Milmay 30 degrees GE MUSE 06/05/2025 11:4 2 AM EDT 06/05/2025 12:08 PM EDT Impressions GE MUSE - 06/05/2025 12:08 PM EDT Normal sinus rhythm Left axis deviation Abnormal ECG When compared with ECG of 08-APR-2016 03:47, Premature ventricular complexes are no longer Present Confirmed by Enmanuel KNOTT SAMER J. ([id number]) on 06/05/2025 12:08:25 PM Narrative Procedure Note Roshni Knott MD - 06/05/2025 IMPRESSION: Normal sinus rhythm Left axis deviation Abnormal ECG When compared with ECG of 08-APR-2016 03:47, Premature ventricular complexes are no longer Present Confirmed by Enmanuel KNOTT SAMER J. (55) on 06/05/2025 12:08:25 PM Antonio Lim MD ECG ORDERABLES Final Result GE MUSE documented in this encounter Visit Diagnoses Diagnosis Sinus pause- Primary Sinus pause UTI symptoms Shoulder arthritis Unspecified arthropathy, shoulder region Sinus pause documented in this encounter Admitting Diagnoses Diagnosis Sinus pause documented in this encounter Active and Recently Administered Medications Times are shown in EDT. Scheduled Medication Order 06/03/2025 06/04/2025 06/05/2025 ceFAZolin (Ancef) 1,000 mg, gentamicin (Garamycin) 80 mg in sodium chloride irrigation solution 0.9 % 500 mL IRRIGATION (COMPLETED) irrigation, Once, On Thu06/05/25 at 1445, For 1 dose, Intraprocedure, Indication: Surgical Prophylaxis 1445 (Due)1536 (Give n - Provider: Antonio Lim MD) ceFAZolin in dextrose (iso-os) (Ancef) IVPB 2 g (COMPLETED) 2 g, intravenous, at 100 mL/hr, Administer over 30 Minutes, Once, On Thu06/05/25 at 1445, For 1 dose, Intraprocedure, Administer within 60 minutes of incision. Duplex bag - activate before hanging., Suspected Indication (Select all that apply): Surgical Prophylaxis 1436 (New Bag - Prov ider: Reena Lagunas RN)1445 (Due) PRN Medication Order 06/03/2025 06/04/2025 06/05/2025 diphenhydrAMINE (BENADryl) injection (CANCELED) As needed, Starting on Thu06/05/25 at 1522, Intraprocedure 1522 (Given - Provid er: Adeline Quick RN) fentaNYL (Sublimaze) injection (CANCELED) As needed, Starting on Thu06/05/25 at 1436, Intraprocedure 1436 (Given - Provid er: Reena Lagunas RN)1455 (Given - Provider: Adeline Quick, ALFONSO)1528 (Given - Provider: Adeline Quick, ALFONSO) iodixanol (VISIPaque) 320 mg iodine/mL injection (CANCELED) As needed, Starting on Thu06/05/25 at 1531, Intraprocedure 1531 (Given - Provid er: Antonio Lim MD - Comment: VENOGRAM TOTAL) lidocaine (PF) (Xylocaine) 10 mg/mL (1 %) injection (CANCELED) As needed, Starting on Thu06/05/25 at 1448, Intraprocedure 1448 (Given - Provid er: Antonio Lim MD - Comment: left upper chest) midazolam (Versed) injection (CANCELED) As needed, Starting on Thu06/05/25 at 1436, Intraprocedure 1436 (Given - Provid er: Reena Lagunas, RN)1448 (Given - Provider: Reena Lagunas, RN) sodium chloride 0.9 % infusion (COMPLETED) Continuous PRN, Starting on Thu06/05/25 at 1435, Intraprocedure 1435 (New Bag - Prov ider: Nellie Grubbs RN)1502 (Rate/Dose Change - Provider: Adeline Quick, ALFONSO)1505 (Rate/Dose Change - Provider: Adeline Quick, ALFONSO) documented in this encounter Care Teams Gauge Maker Relationship Specialty Start Date End Date Jaden Crabtree DO [address] [place] [id number] PCP - General Family Medicine 04/25/25 documented as of this encounter
--- OUTSIDE RECORDS SUMMARY | 2025-06-05 13:00 | XMS_ITS | Encounter Summary ---
Author Organization [facility] Address [address] [place] [address] Care Team Providers Care Welding Supervisor Name Role Phone Jaden Crabtree DO Primary Care Provider Reason for Visit * Auth/Cert (Routine) Specialty Diagnoses / Procedures Referred By Agustina molina Referred To Contact Diagnoses Sinus pause Sinus pause [I45.5] Procedures ND OFFICE/OUTPT VISIT,PROCEDURE ONLY Implant PPM Antonio Lim MD [address] [place] [address] Phone: tel: fax: [facility] [address] [facility] [place] [address] Phone: tel: fax: Referral ID Status Reason Start Date Expiration Date Visits Re quested Visits Authorized [id number] 1 1 Encounter Details Date Type Department Care Team (Late st Contact Info) Description 06/05/2025 1:00 PM EDT - 06/05/2025 2:00 PM EDT Surgery [facility] [address] [place] [address] Antonio Lim MD [address] [place] [address] Implant PPM [[id number]] Social History Tobacco Use Types Packs/Day Years [...] Sign Reading Time Taken Comments Blood Pressure 100/66 06/05/2025 11:26 AM EDT Pulse 64 06/05/2025 11:26 AM EDT Temperature - - Respiratory Rate 16 06/05/2025 11:26 AM EDT Oxygen Saturation 97% 06/05/2025 11:26 AM EDT Inhaled Oxygen Concentration - - Weight 90.7 kg (200 lb) 06/05/2025 11:26 AM EDT Height 177.8 cm (5' 10 ) 06/05/2025 11:26 AM EDT Body Mass Index 28.7 06/05/2025 11:26 AM EDT documented in this encounter Discharge Instructions * Attachments The following attachments cannot be sent through Care Everywhere. * Pacemaker Implantation Adult Care After (Kittitian) * Moderate Conscious Sedation Adult Care After (Kittitian) documented in this encounter Medications at Time [...] from the original note were not included. SD Electrophysiology Consult Note [place] Cardiology - [facility] Reason for visit: Syncope HPI: [...] on. He has followed up with the production team manager at [place] and subsequently for his autonomic hypotension and [...] Resource Strain: Low Risk (11/25/2022) Received from [facility] Overall Financial Resource Strain (CARDIA) Difficulty of Paying Living Expenses: Not very hard Food Insecurity: No Food Insecurity (03/16/2025) Received from [facility] Hunger Screening Within the past 12 months we worried whether our food would run out before we got money to buy more.: Never True Within the past 12 months the food we bought just didn't last and we didn't have money to get more.: Never True Transportation Needs: No Transportation Needs (11/25/2022) Received from [facility] PRAPARE - Transportation Lack of Transportation [...] Housing Stability: Low Risk (11/25/2022) Received from [facility] Housing Stability Vital Sign Unable to [...] Value Ventricular Rate 63 Atrial Rate 63 ND Interval 164 QRS DURATION 90 QT Interval 440 QTC CALCULATION(BAZETT) 450 P [place] -4 R-[place] -31 T Wave [place] 30 Impression Normal sinus rhythm Left axis deviation Abnormal ECG When compared with ECG of 08-APR-2016 03:47, Premature ventricular complexes are no longer Present Confirmed by Enmanuel EASTMAN, CHA Aleman ([id number]) on 06/05/2025 12:08:25 PM Echo: [...] the procedure., Antonio Lim MD Cardiac Electrophysiology [facility] [1] Past Medical History: Diagnosis Date Abnormal ECG Arthritis COPD (chronic obstructive pulmonary disease) ([facility]) CRPS (complex regional pain syndrome type I) Diabetes mellitus ([facility]) Essential tremor Hypertension MGUS (monoclonal gammopathy of [...] (Patient not taking: Reported on 06/05/2025) [DISCONTINUED] xbvijusaep-nnehwxdzkytcd-ceso (Fioricet) 50-300-40 mg capsule TAKE 1 CAPSULE [...] using modified seldinger technique using a 5 Iraqi micro-puncture needle on two occasions and 0.35 [...] for the device above the muscle. 6/9 Iraqi Safesheaths were placed over the wire. An ac tive fixation Biotronik pacing lead was then delivered through the 9Fsheath and Selectra IIID-65/42sheath to the right ventricle. After confirmation of lead position on orthogonal views (BROOKS and ANGOLAN) to confirm septal position, the screw was [...] lead position on orthogonal views (BROOKS and ANGOLAN), the screw was activated. Good sensing parameters, [...] 1300 Procedure: Implant PPM - BIOTRONIC Location: [facility] THIRD 1 / [facility] (Cath) Providers: Antonio Lim MD [...] Description 07/11/2025 10:30 AM EDT Ancillary Procedure [facility] Heart at [facility] [address] [place] [address] Scheduled Orders Name Type Priority Associated Diagnoses [...] MUSE Atrial Rate 80 BPM GE MUSE ND Interval 124 ms GE MUSE QRS DURATION 116 ms GE MUSE QT Interval 428 ms GE MUSE QTC CALCULATION(BAZE TT) 493 ms GE MUSE R-Vancouver -47 degrees GE MUSE T Wave [place] 122 degrees GE MUSE 06/05/2025 4:26 PM EDT 06/05/2025 4:58 PM EDT Impressions GE MUSE - 06/05/2025 4:58 PM EDT AV dual-paced rhythm Abnormal ECG When compared with ECG of 05-JUN-2025 11:42, Electronic ventricular pacemaker has replaced Sinus rhythm Confirmed by Enmanuel EASTMAN SAMER J. ([id number]) on 06/05/2025 4:58:05 PM Narrative Procedure Note Cha Eastman MD - 06/05/2025 IMPRESSION: AV dual-paced rhythm Abnormal ECG When compared with ECG of 05-JUN-2025 11:42, Electronic ventricular pacemaker has replaced Sinus rhythm Confirmed by Enmanuel EASTMAN SAMER J. (55) on 06/05/2025 4:58:05 PM us Antonio Lim MD ECG ORDERABLES Final Result [...] using modified seldinger technique using a 5 Iraqi micro-puncture needle on two occasions and 0.35 [...] for the device above the muscle. 6/9 Iraqi Safesheaths were placed over the wire. An active fixation Biotronik pacing lead was then delivered through the 9Fsheath and Selectra IIID-65/42 sheath to the right ventricle. After confirmation of lead position on orthogonal views (BROOKS and ANGOLAN) to confirm septal position, the screw was [...] lead position on orthogonal views (BROOKS and ANGOLAN), the screw was activated. Good sensing parameters, [...] EXAM: Patient was hemodynamically stable. COMPLICATIONS: None. Antonio Lim MD CV ELECTROPHYSIOLOGY PROCEDURES Final Result * ECG 12 lead (06/05/2025 11:46 AM EDT) [facility] Ventricular Rate 63 BPM GE MUSE Atrial Rate 63 BPM GE MUSE ND Interval 164 ms GE MUSE QRS DURATION 90 ms GE MUSE QT Interval 440 ms GE MUSE QTC CALCULATION(BAZE TT) 450 ms GE MUSE P [place] -4 degrees GE MUSE R-[place] -31 degrees GE MUSE T Wave [place] 30 degrees GE MUSE 06/05/2025 11:4 2 AM EDT 06/05/2025 12:08 PM EDT Impressions GE MUSE - 06/05/2025 12:08 PM EDT Normal sinus rhythm Left axis deviation Abnormal ECG When compared with ECG of 08-APR-2016 03:47, Premature ventricular complexes are no longer Present Confirmed by Enmanuel EASTMAN SAMER J. ([id number]) on 06/05/2025 12:08:25 PM Narrative Procedure Note Cha Eastman MD - 06/05/2025 IMPRESSION: Normal sinus rhythm Left axis deviation Abnormal ECG When compared with ECG of 08-APR-2016 03:47, Premature ventricular complexes are no longer Present Confirmed by Enmanuel EASTMAN SAMER J. ([id number]) on 06/05/2025 12:08:25 PM us Antonio Lim MD ECG ORDERABLES Final Result Performing Organization Address City/State/[facility] Co de Phone Number ESSENCE PLATA documented in this encounter Visit Diagnoses Diagnosis Sinus pause- Primary Sinus pause UTI symptoms Shoulder arthritis Unspecified arthropathy, shoulder region Sinus pause documented in this encounter Admitting Diagnoses Diagnosis Sinus pause documented in this encounter Administered Medications Inactive Administered Medications - up to 3 most recent administrations Medication Order MAR Action Action Date Dose Rate Site ceFAZolin (Ancef) 1,000 mg, gentamicin (Garamycin) 80 mg in sodium chloride irrigation solution 0.9 % 500 mL IRRIGATION irrigation, Once, On Thu06/05/25 at 1445, For 1 dose, Intraprocedure, Indication: Surgical Prophylaxis Given 06/05/2025 3:36 PM EDT 500 mL ceFAZolin in dextrose (iso-os) (Ancef) IVPB 2 g 2 g, intravenous, at 100 mL/hr, Administer over 30 Minutes, Once, On Thu06/05/25 at 1445, For 1 dose, Intraprocedure, Administer within 60 minutes of incision. Duplex bag - activate before hanging., Suspected Indication (Select all that apply): Surgical Prophylaxis New Bag 06/05/2025 2:36 PM EDT 2 g diphenhydrAMINE (BENADryl) injection As needed, Starting on Thu06/05/25 at 1522, Intraprocedure Given 06/05/2025 3:22 PM EDT 12.5 mg fentaNYL (Sublimaze) injection As needed, Starting on Thu06/05/25 at 1436, Intraprocedure Given 06/05/2025 3:28 PM EDT 12.5 mcg Given 06/05/2025 2:55 PM EDT 12.5 mcg Given 06/05/2025 2:36 PM EDT 12.5 mcg iodixanol (VISIPaque) 320 mg iodine/mL injection As needed, Starting on Thu06/05/25 at 1531, Intraprocedure Given 06/05/2025 3:31 PM EDT 3 mL Other lidocaine (PF) (Xylocaine) 10 mg/mL (1 %) injection As needed, Starting on Thu06/05/25 at 1448, Intraprocedure Given 06/05/2025 2:48 PM EDT 40 mL midazolam (Versed) injection As needed, Starting on Thu06/05/25 at 1436, Intraprocedure Given 06/05/2025 2:48 PM EDT 0.5 mg Given 06/05/2025 2:36 PM EDT 0.5 mg sodium chloride 0.9 % infusion Continuous PRN, Starting on Thu06/05/25 at 1435, Intraprocedure Rate/Dose Change 06/05/2025 3:05 PM EDT 200 mL/hr 200 mL/hr Rate/Dose Change 06/05/2025 3:02 PM EDT 100 mL/hr 100 mL/ hr New Bag 06/05/2025 2:35 PM EDT 50 mL/hr 50 mL/hr documented in this encounter Active and Recently [...] Reena Lagunas RN)1455 (Given - Provider: Adeline Quick RN)1528 (Given - Provider: Adeline Quick RN) iodixanol (VISIPaque) 320 mg iodine/mL injection (CANCELED) [...] 1436 (Given - Provid er: Reena Lagunas RN)1448 (Given - Provider: Reena Lagunas RN) sodium chloride 0.9 % infusion (COMPLETED) Continuous PRN, Starting on Thu06/05/25 at 1435, Intraprocedure 1435 (New Bag - Prov ider: Nellie Grubbs RN)1502 (Rate/Dose Change - Provider: Adeline Quick, ALFONSO)1505 (Rate/Dose Change - Provider: Adeline Quick RN) documented in this encounter Care Teams Welding Supervisor Relationship Specialty Start Date End Date Jaden Crabtree DO [address] [place], [place] [id number] PCP - General Family Medicine 04/25/25 documented as of this encounter
--- OUTSIDE RECORDS SUMMARY | 2025-06-12 14:40 | XMS_ITS | Encounter Summary ---
Author Organization [facility] Address [address] [place] [address] Care Team Providers Care Model And Mold Maker Plaster Name Role Phone Jaden Crabtree DO Primary Care Provider [phone] Encounter Details Date Type Department Care Team (Late st Contact Info) Description 06/12/2025 2:40 PM EDT Follow-Up [facility] at [facility] [address] [place] [address] Jac Tidwell, HOOP PUNCHER [address] [place] [address] Encounter for postoperative wound check (Primary Dx); Sinus pause; Syncope and collapse; S/P placement of cardiac pacemaker Social History Tobacco Use Types Packs/Day Years [...] Sign Reading Time Taken Comments Blood Pressure 132/83 06/12/2025 2:39 PM EDT Pulse 60 06/12/2025 2:39 PM EDT Temperature - - Respiratory Rate - - Oxygen Saturation 98% 06/12/2025 2:39 PM EDT Inhaled Oxygen Concentration - - Weight - - Height 177.8 cm (5' 10 ) 06/12/2025 2:39 PM EDT Body Mass Index - - documented in this encounter Progress Notes * Jac Tidwell, NATHEN - 06/12/2025 2:40 PM EDT Images from the original note were not included. SUBJECTIVE Reason for Visit: Jamarcus García is a 64 y.o. year old adult patient being seen for status post pacemaker implant, wound check. HPI: Jamarcus García is a 64 y.o. year old adult with significant medical history of Parkinson's disease, neurogenic orthostatic hypotension, diabetes, neuropathy, hypertension, COPD, and PVD. History of sinus pause status post pacemaker implant 06/05/[address] Lim. He is a patient of Dr. Espinoza / Cherelle Botello. 06/12/2025 office visit: Patient was seen and evaluated in the office today following pacemaker implant, wound check. Denieschest pain, shortness of breath, palpitations, lightheaded dizziness, or lower extremity edema. Left chest site intact, no oozing, erythema, hematoma. Patient denies fevers chills. 04/25/2025 office visit (Dr. Lim): HPI: Jamarcus García is a 64 y.o. year old with past medical history of Parkinson disease, diabetesmellitus type 2 with associated diabetic neuropathy, hypertension, COPD, peripheral vascular disease who has been known to have orthostatic hypotension with evident blood pressure drops who was previously treated with midodrine and subsequently pyridostigmine was added on. He has followed up with the door clamp operator at [facility] and subsequently for his autonomic hypotension and issues he has had a follow-up with Cherelle Botello, She had ordered an event monitor which showed evidence of pauses of 3 seconds noted on 04/12/2025 at10:30 AM Medical History[1] Surgical History[2] Problem List[3] family history includes Asthma in Jamarcus's mother; Cancer in Jamarcus's brother; Depression in Jamarcus's mother; Diabetes type II in Jamarcus's father; Heart attack in Jamarcus's maternal grandfather and mother's brother; Hypertension in Jamarcus's father and mother; Hypotension in Jamarcus's mother; Kidney disease in Jamarcus's mother. Social History[4] OBJECTIVE Visit Vitals Smoking Status Former Physical Exam Constitutional: General Appearance: well-developed, appears stated age. Level of Distress: no acute distress. Neck: Jugular Veins: normal jugular venous pressure. Lungs: Auscultation: no rales or rhonchi and normal breath sounds. Cardiovascular: Rate And Rhythm: regular Heart Sounds: normal S1 and s2; Systolic Murmur: not heard. Diastolic Murmur: not heard. Extremities: no edema Peripheral Pulses: Pulses: full and equal in all extremities except if noted. Abdomen: Inspection and Palpation: non distended or tender and soft. Musculoskeletal: Inspection: no joint tenderness or swelling. Neurologic: Gait: normal gait. Psychiatric: Mental Status: alert and normal affect. Skin: Inspection and Palpation: warm and dry. Allergies: Allergies[5] Outpatient Medications: Current Outpatient Medications Medication Instructions acarbose (PRECOSE) 25 mg, 3 times daily RT albuterol 1.25 mg/3 mL nebulizer solution 1 ampule, Every 6 hours PRN albuterol sulfate 90 mcg/actuation aerosol powdr breath activated 2 puffs, Every 4 hours carbidopa-levodopa (Sinemet CR) 25-100 mg ER tablet [...] DOSE. TAKE ALONG WITH SINEMET CR. diclofenac (VOLTAREN) 75 mg, 2 times daily RT doxycycline (MONODOX) 100 mg, oral, 2 times daily, Take with at least 8 ounces (large glass) of water, do not lie down for 30 minutes after DULoxetine (CYMBALTA) 60 mg, Daily ezetimibe (ZETIA) 10 mg, Daily RT fludrocortisone (Florinef) 0.1 mg tablet TAKE TWO TABLETS BY MOUTH DAILY DIRECTED midodrine (Proamatine) 5 mg tablet Check blood pressure at 8 am, 12 pm and 6 pm. If top number is 110 or lower take 3 tablets (15 mg). If top number 111-149 take 2 tablets (10 mg) if top number is 150 or higher DO NOT TAKE. montelukast (SINGULAIR) 10 mg, Daily potassium citrate CR (Urocit-K-15) 15 mEq ER tablet 15 mEq, 2 times daily pregabalin (Lyrica) 300 mg capsule take one capsule by mouth twice a day for 30 days tolterodine LA (DETROL LA) 4 mg, Daily topiramate (TOPAMAX) 100 mg, 2 times daily RT traMADol (Ultram) 50 mg tablet take 1 tablet (50 mg total) by mouth every 6 (six) hours as needed for pain. venlafaxine XR (Effexor-XR) 150 mg 24 hr capsule 1 capsule, Daily Recent Labs: Admission on 06/05/2025, Discharged on 06/05/2025 Component Date Value Ventricular Rate 06/05/2025 63 Atrial Rate 06/05/2025 63 WA Interval 06/05/2025 164 QRS DURATION 06/05/2025 90 QT Interval 06/05/2025 440 QTC CALCULATION(BAZETT) 06/05/2025 450 P [place] 06/05/2025 -4 R-Silverthorne 06/05/2025 -31 T Wave Silverthorne 06/05/2025 30 Ventricular Rate 06/05/2025 80 Atrial Rate 06/05/2025 80 WA Interval 06/05/2025 124 QRS DURATION 06/05/2025 116 QT Interval 06/05/2025 428 QTC CALCULATION(BAZETT) 06/05/2025 493 R-Silverthorne 06/05/2025 -47 T Wave Silverthorne 06/05/2025 122 I have personally reviewed and anaylzed the following laboratory results above. These findings havebeen analyzed in the context of the patient's clinical presentation. Cardiovascular Diagnostic Studies: DUAL CHAMBER PACEMAKER IMPLANT PROCEDURE NOTE 06/05/2025 DATE OF PROCEDURE: 06/05/25 PERFORMING PHYSICIAN: Dr. [...] using modified seldinger technique using a 5 Burkinan micro-puncture needle on two occasions and 0.35 [...] for the device above the muscle. 6/9 Burkinan Safesheaths were placed over the wire. An ac tive fixation Biotronik pacing lead was then delivered through the 9Fsheath and Selectra IIID-65/42sheath to the right ventricle. After confirmation of lead position on orthogonal views (BROOKS and SPANISH) to confirm septal position, the screw was [...] lead position on orthogonal views (BROOKS and SPANISH), the screw was activated. Good sensing parameters, [...] any concerns. Antonio Lim MD Cardiac Electrophysiology 12 Lead ECG: Encounter Date: 06/05/25 ECG 12 lead Result Value Ventricular Rate 80 Atrial Rate 80 WA Interval 124 QRS DURATION 116 QT Interval 428 QTC CALCULATION(BAZETT) 493 R-Silverthorne -47 T Wave [place]orne 122 Impression AV dual-paced rhythm Abnormal ECG When compared with ECG of 05-JUN-2025 11:42, Electronic ventricular pacemaker has replaced Sinus rhythm Confirmed by Enmanuel KNOTT, ROSHNI Aleman ([id number]) on 06/05/2025 4:58:05 PM Event monitor April 2025: Wound check 06/12/2025: I have personally reviewed and analyzed all available cardiac diagnostic tests and imaging reports.Findings have been analyzed in the context of the patient's clinical status. Wound check 06/12/2025: Assessment and Plan #Sinus node dysfunction #Status post dual-chamber pacemaker Status post dual-chamber pacemaker implant on 06/05/[address] Lim Wound check: Intact, no erythema, no oozing, no hematoma. Denies fever or chills, pain or tenderness from the site. #H/o orthostatic hypotension Stable - On midodrine 5 mg #Hypertension Blood pressure today is 132/83, heart rate 60 Stable #Hyperlipidemia - Continue ezetimibe 10 mg daily - Continue atorvastatin 10 mg #COPD #PVD Plan Overview: Scheduled for device check Routine follow-up This note was partially composed using voice recognition software. While every effort was made to ensure accuracy, some unintentional journal box inspector errors may be present. Jac Tidwell, [facility] Cardiovascular Medicine [1] Past Medical History: Diagnosis Date Abnormal ECG Arthritis COPD (chronic obstructive pulmonary disease) (CMS/HCC) CRPS (complex regional pain syndrome type I) Diabetes mellitus (CMS/HCC) Essential tremor Hypertension MGUS (monoclonal gammopathy of unknown significance) Orthostatic hypotension [2] No past surgical history on file. [3] Patient Active Problem List Diagnosis COPD with chronic bronchitis (CMS/HCC) CRPS (complex regional pain syndrome type I) Type 2 diabetes mellitus (CMS/HCC) Essential hypertension Essential tremor Falls frequently MGUS (monoclonal gammopathy of unknown significance) Orthostatic hypotension Second degree heart block by electrocardiogram (ECG) Acute cystitis without hematuria Acute kidney injury Aftercare following surgery of the musculoskeletal system Anemia Anxiety Arthritis of knee Asthma At risk for delirium BPH with urinary obstruction Brachial neuritis or radiculitis Chest pain Chronic pain syndrome Complete tear of right rotator cuff Coronary atherosclerosis COVID-19 virus infection Critical limb ischemia of both lower extremities with gangrene (CMS/HCC) Degeneration of intervertebral disc of cervical region Degeneration of intervertebral disc of lumbosacral region Depression Displacement of cervical intervertebral disc without myelopathy Displacement of thoracic intervertebral disc without myelopathy Dysphagia Encounter for abdominal aortic aneurysm (AAA) screening Fall Frequency of urination Generalized weakness History of fusion of cervical spine Hyperlipidemia Impotence of organic origin Bowel incontinence Incontinence without sensory awareness Iron deficiency anemia secondary to inadequate dietary iron intake Iron deficiency anemia Irritant contact dermatitis due to fecal incontinence Kidney stones Lumbar stenosis with neurogenic claudication Malignant neoplasm of skin of lip Microstomia Multifactorial gait disorder Near syncope Nicotine use disorder Obesity, Class I, BMI 30-34.9 Open wound of left great toe Open wound of left heel Osteoarthritis of left hip Other forms of scoliosis, site unspecified Postlaminectomy syndrome of lumbar region Pressure injury of coccygeal region, stage 2 (CMS/HCC) Pressure injury of left foot, unstageable (CMS/HCC) Psychosexual dysfunction, unspecified Psychosis due to Parkinson's disease (CMS/HCC) Recurrent UTI Right foot drop Sciatica, left side Severe protein-calorie malnutrition Glenohumeral arthritis, left Shoulder arthritis Shy-Drager syndrome (CMS/HCC) Slow urinary stream Spinal cord stimulator status History of arthrodesis Testicular hypofunction Tobacco use Urinary retention Urinary urgency UTI symptoms Walking difficulty due to ankle and foot Wound eschar of foot Sinus pause [4] Social History Tobacco Use Smoking status: Former Current packs/day: 0.00 Average packs/day: 1 pack/day for 44.6 years (44.6 ttl pk-yrs) Types: Cigarettes Start date: 01/13/1978 Quit date: 08/19/2022 Years since quittin.8 Smokeless tobacco: Never Substance Use Topics Alcohol use: Never Drug use: Never [5] Allergies Allergen Reactions Celecoxib GI intolerance, Hives, Rash and Unknown Other reaction(s): GI Upset, Unknown Clonazepam Itching, Shortness of breath and Unknown Erythromycin Base Hives and Shortness of breath Levofloxacin Hives, Shortness of breath and Unknown Other reaction(s): Unknown Moxifloxacin Hives, Itching, Rash, Shortness of breath and Other Pimavanserin Hives Erythromycin Itching, Nausea And Vomiting, Nausea Only and Unknown Other reaction(s): Unknown documented in this encounter Plan of Treatment Upcoming Encounters Date Type Department Care Team (Late st Contact Info) Description 07/11/2025 10:30 AM EDT Ancillary Procedure [facility] at [address] [id number] documented as of this encounter Visit Diagnoses Diagnosis Encounter for postoperative wound check- Primary Sinus pause Syncope and collapse S/P placement of cardiac pacemaker documented in this encounter Care Teams Model And Mold Maker Plaster Relationship Specialty Start Date End Date Jaden Crabtree DO [address] [place] [address] PCP - General Family Medicine 04/25/25 documented as of this encounter
[2025-06-15] VITALS (43 sets, daily range): BP systolic 71–165; BP diastolic 58–112; PULSE 72–104; TEMP 36.4–36.9; O2SAT 81–100; BMI 30.4
--- OUTSIDE RECORDS SUMMARY | 2025-06-15 00:03 | XMS_ITS | Encounter Summary ---
Author Organization [facility] Address [address] [place] [address] Phone Care Team Providers Care Thimble Press Operator Name Role Phone Jaden Crabtree DO Primary Care Provider [phone] Jaden Crabtree DO Unavailable Encounter Details Date Type Department Care Team (Late st Contact Info) Description 07/26/2021 Orders Only [facility] [address] [place] [address] Conversion, Onbase Social History Tobacco Use Types [...] on filedocumented in this encounter Care Teams Thimble Press Operator Relationship Specialty Start Date End Date Jaden Crabtree DO PCP - General 08/16/21 Jaden Crabtree DO [address] [place] [address] PCP - MMO Medicare Advantage PCP 02/16/23 09/17/23 documented as of this encounter
--- OUTSIDE RECORDS SUMMARY | 2025-06-15 00:03 | XMS_ITS | Encounter Summary ---
Author Organization [facility] Address [address] [place] [address] Phone Care Team Providers Care Automatic Splicing Machine Operator Name Role Phone Jaden Crabtree DO Primary Care Provider [phone] Encounter Details Date Type Department Care Team (Late st Contact Info) Description 10/21/2023 Patient Risk Score ACO Care Management [address] [facility] [address] [place] [address] Social History Tobacco Use Types [...] on filedocumented in this encounter Care Teams Automatic Splicing Machine Operator Relationship Specialty Start Date End Date Jaden Crabtree DO PCP - General 08/16/21 documented as of this encounter
--- OUTSIDE RECORDS SUMMARY | 2025-06-15 00:03 | XMS_ITS | Encounter Summary ---
Author Organization [facility] Address [address] [place] [address] Phone Care Team Providers Care Spark Tester Name Role Phone Jaden Crabtree DO Primary Care Provider [phone] Jaden Crabtree DO Unavailable Encounter Details Date Type Department Care Team (Late st Contact Info) Description 08/21/2023 Patient Risk Score AC Care Management [address] [place] [address] Social History Tobacco Use Types [...] on filedocumented in this encounter Care Teams Spark Tester Relationship Specialty Start Date End Date Jaden Crabtree DO PCP - General 08/16/21 Jaden Crabtree DO [address] [place] [address] PCP - MMO Medicare Advantage PCP 02/16/23 09/17/23 documented as of this encounter
--- OUTSIDE RECORDS SUMMARY | 2025-06-15 00:03 | XMS_ITS | Encounter Summary ---
Author Organization [facility] Address [address] [place] [address] Phone Care Team Providers Care Quality Worker Name Role Phone Jaden Crabtree DO Primary Care Provider [phone] Jaden Crabtree DO Unavailable Encounter Details Date Type Department Care Team (Late st Contact Info) Description 07/21/2023 Patient Risk Score AC Care Management [address] [place] [address] Social History Tobacco Use Types [...] on filedocumented in this encounter Care Teams Quality Worker Relationship Specialty Start Date End Date Jaden Crabtree DO PCP - General 08/16/21 Jaden Crabtree DO [address] [place] [address] PCP - MMO Medicare Advantage PCP 02/16/23 09/17/23 documented as of this encounter
--- OUTSIDE RECORDS SUMMARY | 2025-06-15 00:03 | XMS_ITS | Encounter Summary ---
Author Organization [facility] Address [address] [place] [address] Phone Care Team Providers Care Physician Neonatology Name Role Phone Jaden Crabtree DO Primary Care Provider [phone] Jaden Crabtree DO Unavailable Encounter Details Date Type Department Care Team (Late st Contact Info) Description 03/03/2022 Orders Only [facility] [address] [place] [address] Conversion, Onbase Social History Tobacco Use Types [...] on filedocumented in this encounter Care Teams Physician Neonatology Relationship Specialty Start Date End Date Jaden Crabtree DO PCP - General 08/16/21 Jaden Crabtree DO [address] [place] [address] PCP - MMO Medicare Advantage PCP 02/16/23 09/17/23 documented as of this encounter
--- OUTSIDE RECORDS SUMMARY | 2025-06-15 00:03 | XMS_ITS | Encounter Summary ---
Author Organization [facility] Address [address] [place] [address] Phone Care Team Providers Care Modeling Agent Name Role Phone Jaden Crabtree DO Primary Care Provider [phone] Jaden Crabtree DO Unavailable Encounter Details Date Type Department Care Team (Late st Contact Info) Description 05/21/2023 Patient Risk Score AC Care Management [address] [place] [address] Social History Tobacco Use Types [...] on filedocumented in this encounter Care Teams Modeling Agent Relationship Specialty Start Date End Date Jaden Crabtree DO PCP - General 08/16/21 Jaden Crabtree DO [address] [place] [address] PCP - MMO Medicare Advantage PCP 02/16/23 09/17/23 documented as of this encounter
--- OUTSIDE RECORDS SUMMARY | 2025-06-15 00:03 | XMS_ITS | Encounter Summary ---
Author Organization [facility] Address [address] [place] [address] Phone Care Team Providers Care Highway Engineer Name Role Phone aJden Crabtree DO Primary Care Provider [phone] Encounter Details Date Type Department Care Team (Late st Contact Info) Description 09/20/2023 Patient Risk Score ACO Care Management [address] [facility] [address] [place] [address] Social History Tobacco Use Types [...] on filedocumented in this encounter Care Teams Highway Engineer Relationship Specialty Start Date End Date Jaden Crabtree DO PCP - General 08/16/21 documented as of this encounter
--- OUTSIDE RECORDS SUMMARY | 2025-06-15 00:03 | XMS_ITS | Encounter Summary ---
Author Organization [facility] Address [address] [place] [address] Phone Care Team Providers Care Assistant County Attorney Name Role Phone Jaden Crabtree DO Primary Care Provider [phone] Jaden Crabtree DO Unavailable Encounter Details Date Type Department Care Team (Late st Contact Info) Description 04/20/2023 Patient Risk Score AC Care Management [address] [place] [address] Social History Tobacco Use Types [...] on filedocumented in this encounter Care Teams Assistant County Attorney Relationship Specialty Start Date End Date Jaden Crabtree DO PCP - General 08/16/21 Jaden Crabtree DO [address] [place] [address] PCP - MMO Medicare Advantage PCP 02/16/23 09/17/23 documented as of this encounter
--- OUTSIDE RECORDS SUMMARY | 2025-06-15 00:03 | XMS_ITS | Clinical Summary ---
Author Organization [facility] Address [address] [place] [address] Care Team Providers Care Computing Systems Mechanic Name Role Phone Jaden Crabtree Primary Care Provider [phone] Allergies Active Allergy Reactions Criticality Noted Date [...] is 150 or higher DO NOT TAKE. 3 Active venlafaxine XR (Effexor-XR) 150 mg 24 hr capsule Take 1 capsule by mouth in the morning. 5 Active topiramate (Topamax) 100 mg tablet Take 100 mg by mouth in the morning and at bedtime. Active DULoxetine (Cymbalta) [address] capsule Take 60 mg by mouth in the morning. Active ezetimibe (Zetia) 10 mg tablet Take 10 mg by mouth in the morning. 1 Active traMADol (Ultram) 50 mg tablet take 1 tablet (50 mg total) by mouth every 6 (six) hours as needed for pain. Active potassium citrate CR (Urocit-K-15) 15 mEq ER tablet Take 15 mEq by mouth twice a day. 4 Active albuterol sulfate 90 mcg/actuation aerosol powdr breath activated Inhale 2 puffs every 4 (four) hours. Active albuterol 1.25 mg/3 mL nebulizer solution Inhale 1 ampule every 6 (six) hours if needed. 0 Active doxycycline (Monodox) 100 mg capsuleIndicati ons:UTI symptoms Take 1 capsule (100 mg) by mouth two times daily for 10 days. Take with at least 8 ounces (large glass) of water, do not lie down for 30 minutes after 20 capsule 5 06/15/20 25 Active atorvastatin (Lipitor) 10 mg tablet Take 10 mg by mouth in the morning. 06/05/20 25 Discontinu ed(Med List Cleanup) pyRIDostigmine (Mestinon) 60 mg tablet Take 30 mg by mouth three times daily. 5 06/05/20 25 Discontinu ed(Med List Cleanup) SUMAtriptan (Imitrex) 50 mg tablet TAKE 1 TABLET (50 MG TOTAL) BY MOUTH ONCE NEEDED FOR MIGRAINE FOR UP TO 180 DOSES. MAY REPEAT IN 2 HOURS IF UNRESOLVED. DO NOT EXCEED 20 06/05/20 25 Discontinu ed(Med List Cleanup) Bactrim 400-80 mg tablet Take by mouth. 5 06/05/20 25 Discontinu ed(Med List Cleanup) acetaminophen-c affeine 500-65 mg tablet Take 2 tablets by mouth every 6 (six) hours if needed. 1 06/05/20 Discontinu ed(Med List Cleanup) ascorbic acid (Vitamin C) 100 mg tablet Take 100 mg by mouth in the morning. 06/05/20 Discontinu ed(Med List Cleanup) butalbital-acet aminophen-caff (Fioricet) 50-300-40 mg capsule TAKE 1 CAPSULE BY MOUTH EVERY 6 HOURS NEEDED FOR PAIN FOR 7 DAYS 5 06/05/20 Discontinu ed(Med List Cleanup) Active Problems Problem Noted Date Diagnosed Date [...] 03/2023 Pressure injury of left foot, unstageable 2022 Overview (04/25/2025): Lateral foot Wound eschar of [...] rotator cuff 08/02/2018 Iron deficiency anemia nadiya fitzpatricky to inadequate dietary iron intake 06/16/2018 Nicotine [...] Encounters Date Type Department Care Team Description 06/12/2025 2:40 PM EDT Follow-Up [facility] [address] [place] [phone] Jac Tidwell CNP Encounter for postoperative wound check (Primary Dx); Sinus pause; Syncope and collapse; S/P placement of cardiac pacemaker 06/06/2025 Orders Only [facility] [address] [place] [phone] Provider, MD Jameson 06/05/2025 1:00 PM EDT - 06/05/2025 2:00 PM EDT Surgery [facility] [address] [place] [address] Antonio Lim MD Implant PPM [[id number]] 06/05/2025 11:10 AM EDT - 06/05/2025 5:48 PM EDT Hospital Encounter [facility] [address] [place] [address] Antonio Lim MD UTI symptoms (Primary Dx); Sinus pause; Shoulder arthritis Discharge Disposition: Home or Self Care (01) 06/05/2025 Orders Only [facility] [address] [place] [address] Vanessa Vu, RN Presence of cardiac pacemaker (Primary Dx) 06/05/2025 Travel 06/02/2025 Telephone [facility] [address] [place] [facility] [address] Osiris Owens MA 05/30/2025 Orders Only [facility] [address] [place] [address] Provider, MD Jameson 04/25/2025 2:30 PM EDT Office Visit [facility] [address] [place] [address] Antonio Lim MD Sinus pause (Primary Dx) 04/25/2025 Orders Only [facility] [address] 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); Syncope and collapse 04/05/2025 Telephone [facility] [address] [place] [address] Kenyatta Roblero MA 03/15/2025 Orders Only [facility] [address] [place] [address] Marcelle Anderson MA from Last 3 Months [...] Sonny García jr Alive Father Sonny García Maternal Grandfather Mother TrinatWeyer Mother's Brother Social History Tobacco Use Types [...] not to disclose 2024 11:10 AM EDT Last Filed Vital Signs Vital Sign Reading Time Taken Comments Blood Pressure 132/83 06/12/2025 2:39 PM EDT Pulse 60 06/12/2025 2:39 PM EDT Temperature - - Respiratory Rate 15 06/05/2025 5:30 PM EDT Oxygen Saturation 98% 06/12/2025 2:39 PM EDT Inhaled Oxygen Concentration - - Weight 90.7 kg (200 lb) 06/05/2025 11:26 AM EDT Height 177.8 cm (5' 10 ) 06/12/2025 2:39 PM EDT Body Mass Index 28.7 06/05/2025 11:26 AM EDT Plan of Treatment Upcoming Encounters Date Type Department Care Team (Late st Contact Info) Description 07/11/2025 10:30 AM EDT Ancillary Procedure [facility] [address] [place] [address] Health Maintenance Due Date Last Done Comments CT Colonography 1958 Diabetes: Hemoglobin A1C 1958 FIT-DNA 1958 FIT 1958 FOBT 1960 Medicare Annual Wellness (AWV) 1958 Sigmoidoscopy 1958 Diabetes: Retinopathy Screening 1968 Diabetes: Urine Protein Screening 1977 Mammogram 1998 Zoster Vaccines (2 of 2) 03/16/2019 01/19/2019 [...] on patient's age to complete this topic Medical Devices Implanted Type Area Marker Assembler Device Identifier Shelf Expiration Date Model / Serial / Lot LeadDuke S 60 - [id number] - [id number] Implanted:Qty: 1 on 06/05/2025 by Antonio Lim MD at [facility] Lead N/A: Chest Biotronik [id number] 03/18/2027 [id number] / [id number] / Description:septal LeadDuke S 53 - [id number] - [id number] Implanted:Qty: 1 on 06/05/2025 by Antonio Lim MD at [facility] Lead N/A: Chest Biotronik [id number] 04/17/2027 [id number] / [id number] / Pacemaker,Amfrancie Juárez - [id number] - [id number] Implanted:Qty: 1 on 06/05/2025 by Antonio Lim MD at [facility] Pacemaker N/A: Chest Biotronik [id number] 10/18/2026 [id number] / [id number] / Procedures Procedure Name Priority Date/Time Associated Diagnosis Comments XR CHEST 2 VIEWS Routine 06/06/2025 1:48 PM EDT ECG 12-LEAD Routine 06/05/2025 4:29 PM EDT IMPLANT PPM Routine 06/05/2025 3:52 PM EDT Sinus pause ECG 12-LEAD Routine 06/05/2025 11:46 AM EDT CARDIAC EVENT MONITOR Routine 05/10/2025 4:14 PM EDT from Last 3 Months Results * XR chest 2 views (06/06/2025 1:48 PM EDT) Anatomical Region Laterality Modality Chest Computed Radiogr aphy us Historical Provider MD HOFF XR PROCEDURES Final R esult * ECG 12 lead (06/05/2025 4:29 PM EDT) Only the most recent of2 resultswithin the time period is included. Ventricular Rate 80 BPM GE MUSE Atrial Rate 80 BPM GE MUSE SC Interval 124 ms GE MUSE QRS DURATION 116 ms GE MUSE QT Interval 428 ms GE MUSE QTC CALCULATION(BAZE TT) 493 ms GE MUSE R-[place] -47 degrees GE MUSE T Wave [place] 122 degrees GE MUSE 06/05/2025 4:26 PM EDT 06/05/2025 4:58 PM EDT Impressions GE MUSE - 06/05/2025 4:58 PM EDT AV dual-paced rhythm Abnormal ECG When compared with ECG of 05-JUN-2025 11:42, Electronic ventricular pacemaker has replaced Sinus rhythm Confirmed by Enmanuel KNOTT, CHA Aleman (57) on 06/05/2025 4:58:05 PM Narrative Procedure Note Cha Knott MD - 06/05/2025 IMPRESSION: AV dual-paced rhythm Abnormal ECG When compared with ECG of 05-JUN-2025 11:42, Electronic ventricular pacemaker has replaced Sinus rhythm Confirmed by Enmanuel KNOTT, CHA Aleman (57) on 06/05/2025 4:58:05 PM us Antonio [...] using modified seldinger technique using a 5 Kazakh micro-puncture needle on two occasions and 0.35 [...] for the device above the muscle. 6/9 Kazakh Safesheaths were placed over the wire. An active fixation Biotronik pacing lead was then delivered through the 9Fsheath and Selectra IIID-65/42 sheath to the right ventricle. After confirmation of lead position on orthogonal views (BROOKS and AZERBAIJANI) to confirm septal position, the screw was [...] lead position on orthogonal views (BROOKS and AZERBAIJANI), the screw was activated. Good sensing parameters, [...] MD CV ELECTROPHYSIOLOGY PROCEDURES Final Result * Cardiac event monitor (05/10/2025 4:14 PM EDT) Anatomical Region Laterality Modality Other Historical Provider [facility] CORTNEY DE OLIVEIRA Final Result from Last 3 Months Insurance MEDICARE Member Subscriber Plan / Payer (Ef fective 2017-Present) Name:Jamarcus García Kenny Member ID:[id number] Relation to Subscriber:Self Name:RaquelJamarcus Kenny Subscriber ID:[id number] Payer ID:[id number] Group ID:Not on file Type:Medicare Address: [facility] [id number] [employer] [place] Advance Directives * Full Code (Latest Code Status on File) Date Activated Date Inactivated Comments 06/05/2025 3:54 PM 06/05/2025 7:49 PM Care Teams Computing Systems Mechanic Relationship Specialty Start Date End Date Jaden Crabtree DO [address] [place] [address] PCP - General Family Medicine 04/25/25
--- OUTSIDE RECORDS SUMMARY | 2025-06-15 00:03 | XMS_ITS | Clinical Summary ---
Author Organization [facility] Address [address] [place] [address] Phone Care Team Providers Care Silk Presser Name Role Phone Jaden Crabtree DO Primary Care Provider [phone] Social History Tobacco Use Types Packs/Day Years [...] age to complete this topic Care Teams Silk Presser Relationship Specialty Start Date End Date Jaden Crabtree DO PCP - General 08/16/21
--- OUTSIDE RECORDS SUMMARY | 2025-06-15 00:03 | XMS_ITS | Encounter Summary ---
Author Organization [facility] Address [address] [place] [address] Phone Care Team Providers Care Low Voltage Technician Name Role Phone Jaden Crabtree DO Primary Care Provider [phone] Jaden Crabtree DO Unavailable Encounter Details Date Type Department Care Team (Late st Contact Info) Description 07/25/[address] [facility] [address] [place] [address] Conversion, Onbase Social History Tobacco Use Types [...] on filedocumented in this encounter Care Teams Low Voltage Technician Relationship Specialty Start Date End Date Jaden Crabtree DO PCP - General 08/16/21 Jaden Crabtree DO [address] [place] [address] PCP - MMO Medicare Advantage PCP 02/16/23 09/17/23 documented as of this encounter
--- OUTSIDE RECORDS SUMMARY | 2025-06-15 00:03 | XMS_ITS | Encounter Summary ---
Author Organization [facility] Address [address] [place] [address] Phone Care Team Providers Care Banking Officer Name Role Phone Jaden Crabtree DO Primary Care Provider [phone] Jaden Crabtree DO Unavailable Encounter Details Date Type Department Care Team (Late st Contact Info) Description 06/21/2023 Patient Risk Score [facility] [address] [place] [address] Social History Tobacco Use Types [...] on filedocumented in this encounter Care Teams Banking Officer Relationship Specialty Start Date End Date Jaden Crabtree DO PCP - General 08/16/21 Jaden Crabtree DO [address] [place] [address] PCP - MMO Medicare Advantage PCP 02/16/23 09/17/23 documented as of this encounter
--- OUTSIDE RECORDS SUMMARY | 2025-06-15 00:04 | XMS_ITS | Encounter Summary ---
Author Organization [facility] tem Address [id number] [address] [place] [address] Care Team Providers Care Psychiatric Tech Name Role Phone Jaden Crabtree DO Primary Care Provider [phone] Reason for Visit * Reason Onset Date Comments Speech Therapy 04/13/2025 Encounter Details Date Type Department Care Team (Late st Contact Info) Description 04/[facility] Department of [facility] [address] [facility] [address] [place] [address] Zahra Cevallos Speech Therapy Social History Tobacco [...] Zahra Cevallos - 04/13/2025 4:27 PM EDT Shop Service Technician received a call from patients about getting her a Speech Therapy referral from Dr. Lawton.Caller stated it was reccommended after patients swallow test. Caller stated she would like for speech therapy to be done at home. Callback number is [phone] Please advise, thank you documented in this encounter Plan of Treatment Upcoming Encounters Date Type Department Care Team (Late st Contact Info) Description 07/26/2025 10:00 AM EDT Office Visit [facility] Neurology, A Department of [address] [place] [address] Lyn Lawton MD [address] [place] [address], [facility] [address] [place] [address] 09/12/2025 11:00 AM EST Office Visit [facility] Neurology, A Department of [address] [place] [address] Tony Martin MD [address] [place] [address], [facility] [address] [place] [address] documented as of this encounter Goals Goal [...] documented as of this encounter Care Teams Psychiatric Tech Relationship Specialty Start Date End Date Jaden Crabtree DO [address] [place] [address] PCP - General Family Medicine 01/17/21 documented as of this encounter
--- OUTSIDE RECORDS SUMMARY | 2025-06-15 00:04 | XMS_ITS | Encounter Summary ---
Author Organization [facility] Address [address] [place] [address] Care Team Providers Care Ethylbenzene Oxidizer Name Role Phone Jaden Crabtree Primary Care Provider [phone] Source Comments In the event this information is protected by the Federal Confidentiality of Alcohol and Drug AbusePatient Records regulations: The Federal rules restrict any use of the information to criminally investigate or prosecute any alcohol or drug abuse patient.[facility] Encounter Details Date Type Department Care Team (Late st Contact Info) Description 06/16/2016 Abstract Gastroenterology [address] [id number] Bhupendra Barajas MD [address] [place] [address] Social History Tobacco Use Types Packs/Day Years [...] documented as of this encounter Care Teams Ethylbenzene Oxidizer Relationship Specialty Start Date End Date Jaden Crabtree [address] [place] [id number] PCP - General 06/10/02 documented as of this encounter
--- OUTSIDE RECORDS SUMMARY | 2025-06-15 00:04 | XMS_ITS | Clinical Summary ---
Author Organization [facility] Address [address] [place] [address] Care Team Providers Care Space Controller Name Role Phone Jaden Crabtree Primary Care Provider [phone] Allergies Active Allergy Reactions Criticality Noted Date [...] BPH, GERD, T2DM, who was admitted to [facility] on 11/20 from the ED for [...] Events Past 24: Accepted for transfer to [facility], however had episode of bradycardia to [...] - Psych consulted, appreciate recs - Continue WRAPPER DIPPER Cymbalta, Lyrica, Topamax - Continue Mirtazapine - [...] (05/20/2017): Added automatically from request for surgery [id number] Arthritis of knee 04/27/2017 Type 2 diabetes [...] influenza vaccine, unspecified formulation 07/15 novel influenza (V9K2-47) vaccine, PF 08/24/2009 pneumococcal conjugate (PCV1 3) [...] N ot on file 09/23/2020 Data from: [email or web address] Last address used for calculation Not [...] 11/15/2018, 10/22/2015 Medical Devices Implanted Type Area Helicopter Crew Chief Device Identifier Shelf Expiration Date Model / Serial / Lot Restrictor 24mm Medium Coahoma Cement Revision Plug Hip - [id number] Implanted:Qty: 1 on 04/27/2017 at [facility] Cement / Putty Left: Bone - Knee [employer] 07/28/2021 G714-1759 / / [id number] Cement Simplex P Tobramycin Bone Full Dose Radiopaque Preblend Sterile - [id number] Implanted:Qty: 5 on 04/27/2017 at [facility] Cement / Putty Left: Bone - Knee [employer] 07/28/2018 6197-9-010 / / [id number] Restrictor 30mm Large [place] Cement Revision Plug Hip - [id number] Implanted:Qty: 1 on 04/27/2017 at [facility] Cement / Putty Left: Bone - Knee [employer] 10/28/2021 M329-2028 / / [id number] Cement Simplex P Speedset Bone Radiopaque Sterile - [id number] Implanted:Qty: 1 on 12/29/2017 at [facility] Cement / Putty Left: Bone - Shoulder [employer] 02/15/2019 [id number] / / [id number] Cka-Mz-D-Kind Implant - [id number] Implanted:Qty: 1 on 06/05/2016 at [facility] Implant N/A: Back OTHER 01/16/2019 [id number] / / [id number] Description:NEVRO JAZLYN. N300 LEAD ANCHOR KIT Head Global Unite 52mm Standard 18mm Humeral - [id number] Implanted:Qty: 1 on 12/29/2017 at [facility] Implant Left: Bone - Shoulder [employer] 06/18/2025 [id number] / / [id number] Nevro Sanitation Superintendent Kit Implanted:Qty: 1 on 03/16/2018 at [facility] Implant N/A: Back OTHER 05/14/2020 [id number] 0B / / [id number] Head V40 28mm -2.7mm Offset Taper Biolox Delta Femoral Hip - [id number] Implanted:10/20 at [facility] (Quantity not on file) Joint - Hip Left: Bone - Hip [employer] [employer] 07/29/2024 [id number] / / [id number] Liner 46mm F Cocr Acetabular Modular Dual Mobility Primary Hip - [id number] Implanted:10/20 at [facility] (Quantity not on file) Joint - Hip Left: Bone - Hip [employer] [employer] 08/29/2024 [id number] / / [id number] Insert Adm Mobile Bearing Hip Muslim 52mm 28mm 0d X3 8.9mm Acetabular - [id number] Implanted:10/20 at [facility] (Quantity not on file) Joint - Hip Left: Bone - Hip [employer] [employer] 09/28/2024 [id number] / / [id number] Insert Adm Mobile Bearing Hip Muslim 52mm 28mm 0d X3 8.9mm Acetabular - [id number] Implanted:04/18 at [facility] (Quantity not on file) Joint - Hip Right: Bone - Hip [employer] 01/09/2025 [id number] / / [id number] Head V40 28mm +4mm Offset Taper Biolox Delta Femoral Hip - [id number] Implanted:04/18 at [facility] (Quantity not on file) Joint - Hip Right: Bone - Hip [employer] 12/30/2024 [id number] / / [id number] Liner 46mm F Cocr Acetabular Modular Dual Mobility Primary Hip - [id number] Implanted:04/18 at [facility] (Quantity not on file) Joint - Hip Right: Bone - Hip [facility] 12/20/2024 [id number] / / [id number] Stem Triathlon 12mm Cocr 100mm Femoral Cemented Total Stabilized Knee - [id number] Implanted:Qty: 1 on 04/27/2017 at [facility] Joint - Knee Left: Bone - Knee [facility] [id number] / / [id number] Stem Triathlon 15mm Cocr 50mm Femoral Cemented Total Stabilize Knee - [id number] Implanted:Qty: 1 on 04/27/2017 at [facility] Joint - Knee Left: Bone - Knee [facility] 03/09/2022 [id number] / / [id number] Component Triathlon 7 Cocr Femoral Total Stabilize Knee Left - [id number] Implanted:Qty: 1 on 04/27/2017 at [facility] Joint - Knee Left: Bone - Knee [facility] 11/04/2021 [id number] / / [id number] Augment Triathlon 7 5mm Femoral Total Stabilize Knee Posterior - [id number] Implanted:Qty: 1 on 04/27/2017 at [facility] Joint - Knee Left: Bone - Knee [facility] 01/22/2022 [id number] / / [id number] Augment Triathlon 7 5mm Femoral Total Stabilize Knee Left - [id number] Implanted:Qty: 1 on 04/27/2017 at [facility] Joint - Knee Left: Bone - Knee [facility] 07/16/2022 [id number] / / [id number] Augment Triathlon 7 5mm Femoral Total Stabilize Knee Left - [id number] Implanted:Qty: 1 on 04/27/2017 at [facility] Joint - Knee Left: Bone - Knee [facility] 05/19/2020 5545R352 / / [id number] Augment Triathlon 6 10mm Tibial Total Stabilize Right Medial Left Lateral - [id number] Implanted:Qty: 1 on 04/27/2017 at [facility] Joint - Knee Left: Bone - Knee [facility] 04/18/2020 5088U063 / / [id number] Baseplate Triathlon 6 [place]ahoma Cocr Tibial Total Stabilize Cemented Knee - [id number] Implanted:Qty: 1 on 04/27/2017 at [facility] Joint - Knee Left: Bone - Knee [facility] 03/11/2022 [id number] / / [id number] Augment Triathlon 6 10mm Tibial Total Stabilize Left Medial Right Lateral - [id number] Implanted:Qty: 1 on 04/27/2017 at [facility] Joint - Knee Left: Bone - Knee [employer] 08/07/2022 3791T706 / / [id number] Insert Triathlon 6 X3 16mm Tibial Total Stabilize Plus Knee - [id number] Implanted:Qty: 1 on 04/27/2017 at [facility] Joint - Knee Left: Bone - Knee [facility] 11/20/2021 [id number] / / [id number] Component Triathlon 7 Pa Femoral Cruciate Retain Bead Knee Right - [id number] Implanted:Qty: 1 on 07/01/2017 at [facility] Joint - Knee Right: Bone - Knee [facility] 02/25/2022 9818K202 / / [id number] Insert Triathlon 6 X3 13mm Tibial Condylar Stabilized Knee - [id number] Implanted:Qty: 1 on 07/01/2017 at [facility] Joint - Knee Right: Bone - Knee [facility] 10/30/2021 [id number] / / [id number] Baseplate Triathlon 6 Tritanium [id number] Tibial 4 Cruciform Peg Keel Knee - [id number] Implanted:Qty: 1 on 07/01/2017 at [facility] Joint - Knee Right: Bone - Knee [employer] 03/09/2022 5536-B-600 / / [id number] Component Tritanium 35mm Metal 10mm Patellar Asymmetric Knee - [id number] Implanted:Qty: 1 on 07/01/2017 at [facility] Joint - Knee Right: Bone - Knee [employer] 02/23/2022 5552-L-350 / / [id number] Component Triathlon 35mm 10mm Patellar Asymmetric Knee - [id number] Implanted:Qty: 1 on 04/27/2017 at [facility] Joint - Patella Left: Bone - Knee [employer] 11/25/2021 [id number] / / [id number] Head 48mm 7mm Humeral [place] Peg Left Glenoid - [id number] Implanted:Qty: 1 on 12/29/2017 at [facility] Joint - Shoulder Left: Bone - Shoulder [employer] 08/18/2021 [id number] / / [id number] Stem Global Ap 12mm Porocoat 137mm Humeral Arthroplasty System Shoulder - [id number] Implanted:Qty: 1 on 12/29/2017 at [facility] Joint - Shoulder Left: Bone - Shoulder [employer] 11/18/2025 [id number] / / [id number] Assembly Global Ap 135d Taper Fix Shoulder Arthroplasty System - [id number] Implanted:Qty: 1 on 12/29/2017 at [facility] Joint - Shoulder Left: Bone - Shoulder [employer] 01/16/2027 [id number] / / [id number] Augment Triath Tib Cone Sz A - [id number] Implanted:Qty: 1 on 04/27/2017 at [facility] Joint Left: Bone - Knee [employer] 12/26/2021 5549-A-110 / / [id number] Stem Accolade Ii 7 127d Femoral - [id number] Implanted:10/20 at [facility] (Quantity not on file) Joint Left: Bone - Hip [employer] 03/30/2024 2079-4118 / / [id number] Shell Trident Ii 56mm F Tritanium Acetabular 5 Screw Hole Cluster Sterile - [id number] Implanted:10/20 at [facility] (Quantity not on file) Joint Left: Bone - Hip [employer] 06/30/2024 702-04-56F / / [id number] Stem Accolade Ii 7 127d Femoral - [id number] Implanted:04/18 at [facility] (Quantity not on file) Joint Right: Bone - Hip [employer] 07/03/2024 0693-2680 / / [id number] Shell Trident Ii 56mm F Tritanium Acetabular 5 Screw Hole Cluster Sterile - [id number] Implanted:04/18 at [facility] (Quantity not on file) Joint Right: Bone - Hip [employer] 09/19/2024 702-04-56F / / [id number] Lead 50cm Nevro - [id number] Implanted:Qty: 2 on 05/08/2016 at [facility] Lead N/RL 01/07/2019 XIPF9070-6 0B / / [id number] Description:50 Lead 50cm Nevro - [id number] Implanted:Qty: 1 on 06/05/2016 at [facility] Lead Left: Back OTHER 02/15/2019 EUEM2015-4 0B / / [id number] Description:NEVRO BLUE PERC LEAD KIT Lead 50cm Nevro - [id number] Implanted:Qty: 1 on 06/05/2016 at [facility] Lead Right: Back OTHER 02/15/2019 EQUL5794-7 0B / / [id number] Description:NEVRO BLUE PERC LEAD KIT Gnrtr Nrstm Ipg Kit Nevro - [id number] Implanted:Qty: 1 on 06/05/2016 at [facility] Neurostimulator N/A: Back OTHER 02/15/2018 NIPG1 500 / [id number] / [id number] Description:NEVRO NIPG KIT Procedures Procedure Name Priority [...] 79 <200 mg/dL 11/29/2022 10:30 PM EST [facility] Comment: <200 mg/dL, Desirable 200-239 mg/dL, Borderline high >239 mg/dL, High Triglycerides, Nonfasting 117 <150 mg/dL 11/29/2022 10:30 PM [facility] Comment: <150 mg/dL, Normal 150-199 mg/dL, Borderline high 200-499 mg/dL, High >499 mg/dL, Very high HDL Cholesterol, Nonfasting 15(L) >39 mg/dL 11/29/2022 10:30 PM [facility] Comment: 40-59 mg/dL, Acceptable >59 mg/dL, High: Negative risk factor for coronary heart disease <40 mg/dL, Low: Positive risk factor for coronary heart disease LDL Cholesterol Calculated, Nonfasting 41 <100 mg/dL 11/29/2022 10:30 PM [facility] Comment: <100 mg/dL, Optimal 100-129 mg/dL, Near optimal/above optimal 130-159 mg/dL, Borderline high 160-189 mg/dL, High >189 mg/dL, Very high Secondary prevention optimal LDL Cholesterol levels are recommended to be < 70 mg/dL Non HDL Cholesterol, Nonfasting 64 <130 mg/dL 11/29/2022 10:30 PM [facility] Comment: <130 mg/dL, Optimal 130-159 mg/dL, Near optimal/above optimal 160-189 mg/dL, Borderline high 190-219 mg/dL, High >219 mg/dL, Very high Secondary prevention optimal non HDL Cholesterol levels are recommended to be <100 mg/dL VLDL Cholesterol, Nonfasting 23 <30 mg/dL 11/29/2022 10:30 PM [facility] Total Chol/HDL Ratio, Nonfasting 5.27(H) <5.10 mg/dL 11/29/2022 10:30 PM [facility] LDL/HDL Ratio, Nonfasting 2.73(H) <2.54 mg/dL 11/29/2022 10:30 PM [facility] Comment: Reference: 1. National Cholesterol Education Program ATP III Guideline At-A-Glance Quick Desk Reference: National Heart, Lung, and Blood [place]. National Institutes of Health. 2001: NIH Publication No. 01-3305. 2. An International Atherosclerosis Society position paper: global recommendations for the management of dyslipidemia: executive summary, Atherosclerosis. 2014: 232(2):410-413. Blood BLOOD SPECIMEN / Unknown Venipuncture / Unknown 11/29/2022 2:31 AM EST 11/29/2022 2:47 AM EST Conrado Harris MD LABORATORY Final Result Performing Organization Address [facility] Co de Phone Number [facility] [address] [facility] [address] [place] [address], [place] * HGB A1C (04/24/2020 1:03 PM EDT) Hemoglobin A1C 5.6 4.3 - 5.6 % 04/24/2020 1:36 PM EDT [facility] Estimated Average Glucose 114 mg/dL 04/24/2020 1:36 PM EDT [facility] ([place]) Comment: eAG: (Estimated average glucose) is a calculated value from HgbA1c and is education courses sales representative of the average blood glucose level in the last 2-3 month period. Blood specimen (specimen) WHOLE BLOOD SPECIMEN / Unknown 04/24/2020 1:03 PM EDT 04/24/2020 1:05 PM EDT Steven Guevara Jr., MD LABORATORY Final Re sult Performing Organization Address [facility] Co de Phone Number [facility] [address] [place] [address] [facility] ([place]) [address] [facility], [address] * COLONOSCOPY - DIAGNOSTIC (08/11/2016 10:20 AM EDT) Nuclear Radiologist A31 Gastrointestinal Endoscopy Patient Name: Jamarcus García [...] Insurance [facility] Address: [address] [place] [phone] [facility] Advance Directives * DNR-CC (Latest Code Status [...] Code Order Discussed With: Patient Care Teams Space Controller Relationship Specialty Start Date End Date Jaden Crabtree [address] [place] [address] PCP - General 06/10/02
--- OUTSIDE RECORDS SUMMARY | 2025-06-15 00:04 | XMS_ITS ---
Author Organization [facility] Address [address] [place] [address] Care Team Providers Care Rubber Washer Name Role Phone Jaden Crabtree Primary Care Provider [phone] Active Problems Patient Care Coordination No te [...] BPH, GERD, T2DM, who was admitted to [facility] on 11/20 from the ED for [...] Events Past 24: Accepted for transfer to [facility], however had episode of bradycardia to [...] - Psych consulted, appreciate recs - Continue NETWORK OPERATIONS ANALYST Cymbalta, Lyrica, Topamax - Continue Mirtazapine - [...] (05/20/2017): Added automatically from request for surgery [id number] Arthritis of knee 04/27/2017 Type 2 diabetes [...]
--- OUTSIDE RECORDS SUMMARY | 2025-06-15 00:04 | XMS_ITS | Encounter Summary ---
Author Organization [facility] Address [address] [place] [address] Care Team Providers Care Smash Hand Name Role Phone Unavailable Primary Care Provider Unavailabl e Encounter Details Date Type Department Care Team (Late st Contact Info) Description 03/10/2024 Clinisync Result Encounter [facility] External Department Unsolicited Tracey Marin MD [address], [place] [id number] Social History Tobacco Use Types Packs/Day Years [...] EDT Narrative 03/10/2024 2:33 PM EDT The [address] [address] Vein Report Signed Patient: ALISIA CORREA MR#: [id number] : 1960 Acct:[id number] Age/Sex: 63 / M ADM Date: 03/10/24 Loc: VC Attending Dr: Tracey Marin M.D. Ordering Physician: Tracey Marin M.D. Date of Service: 03/10/24 Procedure(s): VC US AAA SCREEN Accession Number(s): [id number] cc: ELLEN ARIAS ; Tracey Marin M.D. The [address] [id number] Patient Name: ALISIA CORREA MRN: [id number] date: 1960 Sex: M Assigned Patient Location: Current Patient Location: VC Accession/Order Number: [id number] Exam Date: 03/10/2024 10:05 Report Date: 03/10/2024 [...] Signed By: 03/10/24 1433 DD/ 143 TD/TT: Pullboat Engineer: Procedure Note Radiology, Radiologist, MD - 03/11/[address] [address] Vein Report Signed Patient: ALISIA CORREA LMR#: [id number] : 1960cct:[id number] Age/Sex: 63 / MADM Date: 03/10/24 Loc: VC Attending Dr: Tracey Marin M.D. Ordering Physician: Tracey Marin M.D. Date of Service: 03/10/24 Procedure(s): VC US AAA SCREEN Accession Number(s): [id number] cc: ELLEN ARIAS ; Tracey Marin M.D. The [place] [address] Patient Name: ALISIA CORREA MRN: [facility]:[id number] date: 1960 Sex: M Assigned Patient Location: Current Patient Location: Accession/Order Number: [id number] Exam Date: 03/10/2024 10:05 Report Date: 03/10/2024 [...] M.D. Signed By:03/10/24 1433 DD/ 30 TD/TT: Pullboat Engineer: Tracey Marin MD IMG US PROCEDURES Final Resu lt documented in this encounter Visit Diagnoses Not on filedocumented in this encounter
--- OUTSIDE RECORDS SUMMARY | 2025-06-15 00:04 | XMS_ITS | Encounter Summary ---
Author Organization [facility] Address [facility] [address] [place] [address] Care Team Providers Care Floral Decorator Name Role Phone Jaden Crabtree DO Primary Care Provider [phone] Encounter Details Date Type Department Care Team (Late Contact Info) Description 04/12/2025 Orders Only [facility] [address] [place] [address] Mine Iraheta CMA Encounter for abdominal aortic aneurysm (AAA) screening; Open wound of left great toe, subsequent encounter; Critical limb ischemia of left lower extremity with gangrene ([facility]) Social History Tobacco Use Types Packs/Day [...] Description 07/26/2025 10:00 AM EDT Office Visit [facility] Department of [address] [place] [phone] Lyn Lawton MD [address] [facility] [place] [address] [place] [address] 09/12/2025 11:00 AM EST Office Visit [facility] Department of [place] [address] [facility] [address] [place] [phone] [place] [address] [place] [address], [place] [address] [place] [address] documented as of this encounter Goals Goal [...] ischemia of left lower extremity with gangrene ([facility]) documented in this encounter Additional Health Concerns Assessment Noted Time PHQ-9 Depression Total Score: 21 024 11:29 AM EST A Body Mass Index follow-up plan has been documented for the patient 10/07/2024 3:14 PM EST documented as of this encounter Care Teams Floral Decorator Relationship Specialty Start Date End Date Jaden Crabtree DO [address] [place] [address] PCP - General Family Medicine 01/17/21 documented as of this encounter
--- OUTSIDE RECORDS SUMMARY | 2025-06-15 00:04 | XMS_ITS | Clinical Summary ---
Author Organization [facility] Address [address] [place] [address] Care Team Providers Care Child And Youth Program Assistant Name Role Phone Unavailable Primary Care Provider [...] EDT Narrative 04/11/2025 10:14 PM EDT The [address] [address] Cardiology Report Signed Patient: ALISIA CORREA MR#: [id number] : 1960 Acct:[id number] Age/Sex: 64 / M ADM Date: 04/11/25 Loc: CARD Attending Dr: Tracey Marin M.D. Ordering Physician: Tracey Marin M.D. Date of Service: 04/11/25 Procedure(s): CA segmental UE or LE MARIXA Accession Number(s): [id number] cc: ELLEN ARIAS ; Tracey Marin M.D. The [facility] Test Date: 2025-04-11 Pat Name: ALISIA CORREA Department: Room: - Gender: Male National Insurance Officer: : 1960 Requested By: 1892 Order Number: [id number] Reading MD: JOSY JC M.D. Interpretive Statements [...] 04/11/25 2214 04/11/25 2214 DD/ 1548 TD/TT: Electrical Research Engineer: Procedure Note Radiology, Radiologist, MD - 04/11/2025 [place] [address] Cardiology Report Signed Patient: ALISIA CORREA LMR#: [id number] : 1960cct:[id number] Age/Sex: 64 / MADM Date: 04/11/25 Loc: CARD Attending Dr: Tracey Marin M.D. Ordering Physician: Tracey Marin M.D. Date of Service: 04/11/25 Procedure(s): CA segmental UE or LE MARIXA Accession Number(s): [id number] cc: ELLEN ARIAS ; Tracey Marin M.D. The [facility] Test Date: 2025-04-11 Pat Name: ALISIA CORREA Department: Room: - Gender: Male National Insurance Officer: : 1960 Requested By: 1892 Order Number: [id number] Reading MD: JOSY JC M.D. Interpretive Statements [...] By:04/11/25 2214 04/11/25 2214 DD/ 1548 TD/TT: Electrical Research Engineer: Tracey Marin MD IMG XR PROCEDURES Final Resu lt from Last 3 Months
--- OUTSIDE RECORDS SUMMARY | 2025-06-15 00:05 | XMS_ITS | Encounter Summary ---
Author Organization [facility] Address [address] [place] [address] Care Team Providers Care Distance Education Faculty Liaison Name Role Phone Jaden Crabtree DO Primary Care Provider [phone] Encounter Details Date Type Department Care Team (Late st Contact Info) Description 06/05/2025 Orders Only [facility] Vascular Lab [address] [place] [phone] Vanessa Vu RN Presence of cardiac pacemaker (Primary Dx) Social History Tobacco Use Types Packs/Day Years [...] Description 07/11/2025 10:30 AM EDT Ancillary Procedure [facility] Heart at [facility] [address] [place] [phone] Scheduled Orders Name Type Priority Associated Diagnoses Orde r Schedule Cardiac device check - In Clinic Implantable Cardiac Device Routine Presence of cardiac pacemaker Expected: 07/06/2025 (Approximate), Expires: 06/05/2026 documented as of this encounter Visit Diagnoses Diagnosis Presence of cardiac pacemaker- Primary Cardiac pacemaker in situ documented in this encounter Care Teams Distance Education Faculty Liaison Relationship Specialty Start Date End Date Jaden Crabtree DO [address] [place] [address] PCP - General Family Medicine 04/25/25 documented as of this encounter
--- OUTSIDE RECORDS SUMMARY | 2025-06-15 00:05 | XMS_ITS | Encounter Summary ---
Author Organization [facility] Address [facility] [id number] [address] [place] [address] Care Team Providers Care Analyst Name Role Phone Jaden Crabtree DO Primary Care Provider [phone] Reason for Visit * Reason Onset Date Comments Med Refill 03/31/2025 Encounter Details Date Type Department Care Team (Late st Contact Info) Description 03/31/2025 Refill [facility] [address] [place] [phone] Andrés Bowden MD [address] [place] [address], [facility] [address] [place] [address] Spinal stenosis of lumbar region [...] medication diversion, or non compliance. Reviewed by TRANSPORT NURSE. Pend for signature. documented in this encounter Plan of Treatment Upcoming Encounters Date Type Department Care Team (Late st Contact Info) Description 07/26/2025 10:00 AM EDT Office Visit [facility], A Department of [address], [facility], [address] [place] [phone] Lyn Lawton MD [address] [place] [address] [address] [place] [address] 09/12/2025 11:00 AM EST Office Visit [facility], A Department of [address] [place] [phone] Tony Martin MD [address] [place] [address] [address] [place] [address] documented as of this encounter Goals Goal [...] documented as of this encounter Care Teams Analyst Relationship Specialty Start Date End Date Jaden Crabtree DO [address] [place] [address] PCP - General Family Medicine 01/17/21 documented as of this encounter
--- OUTSIDE RECORDS SUMMARY | 2025-06-15 00:05 | XMS_ITS | Encounter Summary ---
Author Organization [facility] tem Address [facility]-[id number] [address] [place] [address] Care Team Providers Care Scouring Train Operator Name Role Phone Jaden Crabtree DO Primary Care Provider [phone] Encounter Details Date Type Department Care Team (Late Contact Info) Description 02/18/2024 Orders Only [facility] [address] [place] [phone] Ref Prov, [place] [address] Social History Tobacco Use Types Packs/Day Years [...] Office Visit [facility], A Department of [address] [place] [address] [place] [phone] Lyn Lawton MD [address] [place] [address], [facility] [address] [place] [address] 09/12/2025 11:00 AM EST Office Visit [facility], A Department of [address] [place] [phone] Tony Martin MD [address] [place] [address], [facility] [address] [place] [address] documented as of this encounter Goals Goal [...] documented as of this encounter Care Teams Scouring Train Operator Relationship Specialty Start Date End Date Jaden Crabtree DO [address] [place] [address] PCP - General Family Medicine 01/17/21 documented as of this encounter
--- OUTSIDE RECORDS SUMMARY | 2025-06-15 00:05 | XMS_ITS | Clinical Summary ---
Author Organization [employer] tem Address [facility]-[id number] [address] 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 ([facility]) 2 tabs daily as directed 180 [...] Encounters Date Type Department Care Team Description 06/06/2025 [facility]phone [facility] Department of [facility] [address] [place] [place] [phone] Eliane Ken New Patient 04/26/2025 Orders Only [facility] - Neurophysiology [address] [place] [address] Lyn Lawton MD Chronic intractable headache, unspecified headache type (Primary Dx) 04/19/2025 Orders Only [facility] [place] - Neurophysiology [address] [place] [address] Lyn Lawton MD Parkinson's disease without dyskinesia or fluctuating manifestations ([facility]) (Primary Dx); Dysphagia, unspecified type 04/13/2025 Telephone [facility], A Department of [facility] [address] [place] [address] [place] [address] Zahra Cevallos Speech Therapy 04/12/2025 Orders Only [facility] [address] [place] [phone] Mine Iraheta CMA Encounter for abdominal aortic aneurysm (AAA) screening; Open wound of left great toe, subsequent encounter; Critical limb ischemia of left lower extremity with gangrene ([facility]) 04/06/2025 Refill [facility] [address] [place] [phone] Andrés Bowden MD Spinal stenosis of lumbar region with neurogenic claudication 04/04/2025 Refill [facility] [address] [place] [phone] Andrés Bowden MD Spinal stenosis of lumbar region with neurogenic claudication 03/31/2025 Refill [facility] [address] [place] [phone] Andrés Bowden MD Spinal stenosis of lumbar region with neurogenic claudication 03/31/2025 Orders Only [facility] Department of [address] [place] [address] Lyn Lawton MD Dysautonomia orthostatic hypotension syndrome (Primary Dx) 03/29/2025 9:50 AM EDT - 03/29/2025 11:59 PM EDT Hospital Encounter [facility] - Radiology [address] [place] [phone] Dysphagia, unspecified type; Globus sensation Discharge Disposition: Home 03/29/2025 9:47 AM EDT - 03/29/2025 9:49 AM EDT Hospital Encounter [facility] - CT Imaging [address] [place] [address] Cerebellar dysmetria Discharge Disposition: Home 03/29/2025 Travel 03/16/2025 9:10 AM EDT [facility] [address] [place] [phone] Tracey Marin MD Encounter for abdominal aortic aneurysm (AAA) screening (Primary Dx); Open wound of left great toe, subsequent encounter; Critical limb ischemia of left lower extremity with gangrene ([facility]) 03/15/2025 Travel from Last 3 Months Immunizations Immunization Administration [...] 10:00 AM EDT [facility] Department of [address] [place] [address] Lyn Lawton MD [address] [place] [address], [facility] [address] [place] [address] 09/12/2025 11:00 AM EST Office Visit [facility], A Department of [address] [place] [address] Tony Martin MD [address] [place] [address] [address], [address], [address] [place] [address] Health Maintenance Due Date Last Done Comments Diabetic Ophthalmology Exam 1960 Statin Use: Cardiovascular 1960 Statin Use: Diabetic 1960 Diabetic Foot [...] and rehab Medical Devices Implanted Type Area Social Director Device Identifier Shelf Expiration Date Model / Serial / Lot Spinal Stimulator Procedures Procedure Name Priority Date/Time Associated Diagnosis Comments FL SWALLOW MOTILITY FUNCTION Routine 03/29/2025 10:56 AM EDT Dysphagia, unspecified type Globus sensation CT BRAIN WO CONT Routine 03/29/2025 10:0 8 AM EDT Cerebellar dysmetria from Last 3 Months Results * Fluoroscopy [...] Papito Norris DO on 03/29/2025 2:13 PM us Lyn Lawton MD IMG FLUOROSCOPY ORDERABLES Final [...] MD IMG CT ORDERABLES Final Re sult from Last 3 Months Insurance [employer] Advance Directives * Full Code (Latest Code Status on File) Date Activated Date Inactivated Comments 02/07/2021 1:34 PM 02/19/2021 4:48 PM * Full Code Date Activated Date Inactivated Comments 02/03/2021 2:46 PM 02/07/2021 1:08 PM Care Teams Powerhouse Operator Relationship Specialty Start Date End Date Jaden Crabtree DO [address] [place] [address] PCP - General Family Medicine 01/17/21
--- OUTSIDE RECORDS SUMMARY | 2025-06-15 00:05 | XMS_ITS | Encounter Summary ---
Author Organization [facility] Address [address] [place] [address] Care Team Providers Care Cut And Cover Line Worker Name Role Phone Unavailable Primary Care Provider Unavailabl e Encounter Details Date Type Department Care Team (Late st Contact Info) Description 03/10/2024 Clinisync Result Encounter [facility] External Department Unsolicited Tracey Marin MD [address], [place] [phone] Social History Tobacco Use Types Packs/Day Years [...] EDT Narrative 03/10/2024 1:04 PM EDT The [address] [address] Vein Report Signed Patient: ALISIA CORREA MR#: [id number] : 1960 Acct:[id number] Age/Sex: 63 / M ADM Date: 03/10/24 Loc: VC Attending Dr: Tracey Marin M.D. Ordering Physician: Tracey Marin M.D. Date of Service: 03/10/24 Procedure(s): VC SEGMENTAL PRESSURES Accession Number(s): [id number] cc: ELLEN ARIAS ; Tracey Marin M.D. The [place] [id number] Patient Name: ALISIA CORREA MRN: [id number] date: 1960 Sex: M Assigned Patient Location: Current Patient Location: VC Accession/Order Number: [id number] Exam Date: 03/10/2024 10:11 Report Date: 03/10/2024 [...] 177. Calf: 150, 150. DPA: 123, 147. RENTAL SALES ASSOCIATE: 138, 147. 1st Toe: 77, 59 ANUJA: [...] Signed By: 03/10/24 1304 DD/ 1301 TD/TT: [place]: Procedure Note Radiology, Radiologist, - 03/10/2024 [place] [address] Vein Report Signed Patient: ALISIA CORREA LMR#: [id number] : 1960cct:[id number] Age/Sex: 63 / MADM Date: 03/10/24 Loc: VC Attending Dr: Tracey Marin M.D. Ordering Physician: Tracey Marin M.D. Date of Service: 03/10/24 Procedure(s): VC SEGMENTAL PRESSURES Accession Number(s): [id number] cc: ELLEN ARIAS ; Tracey Marin M.D. [place] [address] Patient Name: ALISIA CORREA MRN: [facility]:[id number] date: 1960 Sex: M Assigned Patient Location: VC Current Patient Location: VC Accession/Order Number: [id number] Exam Date: 03/10/2024 10:11 Report Date: 03/10/2024 [...] 177. Calf: 150, 150. DPA: 123, 147. RENTAL SALES ASSOCIATE: 138, 147. 1st Toe: 77, 59 ANUJA: [...] M.D. Signed By:03/10/24 1304 DD/ 1301 TD/TT: [place]: us Tracey Marin MD IMG XR PROCEDURES Final Resu lt documented in this encounter Visit Diagnoses Not on filedocumented in this encounter
--- OUTSIDE RECORDS SUMMARY | 2025-06-15 00:05 | XMS_ITS | Encounter Summary ---
Author Organization [facility] Address [facility][id number] [address] [place] [address] Care Team Providers Care Graduate Engineer Name Role Phone Jaden Crabtree DO Primary Care Provider [phone] Reason for Visit * Reason Onset Date Comments Med Refill 04/06/2025 Encounter Details Date Type Department Care Team (Late st Contact Info) Description 04/06/2025 Refill [facility] [address] [place] [place] [phone] Andrés Bowden MD [address] [place] [address], [facility] [address], [address] [place] [address] Spinal stenosis of lumbar region [...] Office Visit [facility], A Department of [address] [place] [address] Lyn Lawton MD [address] [place] [address], [place] [address] [place] [address] 09/12/2025 11:00 AM EST [facility] Department of [address] [place] [address] Tony Martin MD [address] [place] [address], [facility] [address] [place] [address] documented as of this encounter Goals Goal [...] documented as of this encounter Care Teams Graduate Engineer Relationship Specialty Start Date End Date Jaden Crabtree DO [address] [place] [address] PCP - General Family Medicine 01/17/21 documented as of this encounter
--- OUTSIDE RECORDS SUMMARY | 2025-06-15 00:05 | XMS_ITS | Encounter Summary ---
Author Organization [facility] Address [address] [place] [address] Care Team Providers Care Net Manager Name Role Phone Jaden Crabtree DO Primary Care Provider [phone] Encounter Details Date Type Department Care Team (Late st Contact Info) Description 06/06/2025 Orders Only [facility] Heart at [facility] [address] [place] [phone] ProviderJameson MD [facility] [place] [address] Social History Tobacco Use Types [...] Description 07/11/2025 10:30 AM EDT Ancillary Procedure [facility] [address] [place] [address] documented as of this encounter Procedures Procedure Name Priority Date/Time Associated Diagnosis Comments XR CHEST 2 VIEWS Routine 06/06/2025 1:48 PM EDT documented in this encounter Results * XR chest 2 views (06/06/2025 1:48 PM EDT) Anatomical Region Laterality Modality Chest Computed Radiogr aphy us Historical Provider MD HOFF XR PROCEDURES Final R esult documented in this encounter Visit Diagnoses Not on filedocumented in this encounter Care Teams Net Manager Relationship Specialty Start Date End Date Jaden Crabtree DO [address] [place] [address] PCP - General Family Medicine 04/25/25 documented as of this encounter
--- OUTSIDE RECORDS SUMMARY | 2025-06-15 00:05 | XMS_ITS ---
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 Past Treatment and Therapy Plans No past plan information found. Lifetime Dose Tracking * Chemical Lifetime Dose Automatic Entry Manual Entr y Fluoro Time 11.7 minutes 0 minutes 11.7 minutes Air Kerma 108 mGy 0 mGy 108 mGy
--- OUTSIDE RECORDS SUMMARY | 2025-06-15 00:05 | XMS_ITS | Encounter Summary ---
Author Organization [facility] Address [address] [place] [address] Care Team Providers Care Material Specialist Name Role Phone Jaden Crabtree Primary Care Provider [phone] Encounter Details Date Type Department Care Team (Latest Contact Info) Description 06/05/2025 Travel Social History Tobacco Use Types Packs/Day Years [...] Description 07/11/2025 10:30 AM EDT Ancillary Procedure [facility] [address] [place] [phone] documented as of this encounter Visit Diagnoses Not on filedocumented in this encounter Care Teams Material Specialist Relationship Specialty Start Date End Date Jaden Crabtree DO [facility] [place] [phone] PCP - General Family Medicine 04/25/25 documented as of this encounter
--- OUTSIDE RECORDS SUMMARY | 2025-06-15 00:06 | XMS_ITS | Encounter Summary ---
Author Organization [facility] Address [address] [place] [address] Care Team Providers Care Enterprise Architect Name Role Phone Jaden Crabtree DO Primary Care Provider [phone] Encounter Details Date Type Department Care Team (Late st Contact Info) Description 06/02/2025 Telephone [facility] [address] [place] [address] Osiris Owens MA Social History Tobacco Use Types Packs/Day Years [...] Description 07/11/2025 10:30 AM EDT Ancillary Procedure [facility] [address] [place] [address] documented as of this encounter Visit Diagnoses Not on filedocumented in this encounter Care Teams Enterprise Architect Relationship Specialty Start Date End Date Jaden Crabtree DO [address] [place] [address] PCP - General Family Medicine 04/25/25 documented as of this encounter
--- OUTSIDE RECORDS SUMMARY | 2025-06-15 00:06 | XMS_ITS | Encounter Summary ---
Author [facility] Address [facility]-[id number] [address] [place] [address] Care Team Providers Care Manufacturing Engineering Technologist Name Role Phone Jaden Crabtree DO Primary Care Provider [phone] Encounter Details Date Type Department Care Team (Late st Contact Info) Description 04/14/2024 Orders Only [facility] [address] [place] [address] Tracey Marin MD [address], [address] [address] Social History Tobacco Use Types Packs/Day Years [...] Description 07/26/2025 10:00 AM EDT Office Visit [facility], A Department of [address] [place] [address] [place] [address] [place] [address] [place] [address], [place] [address] [place] [address] 09/12/2025 11:00 AM EST Office Visit [facility] Neurology, A Department of [address] [place] [address] [place] [address] Tony Martin MD [address] [facility], [place] [address] [place] [address] documented as of this encounter Goals Goal [...] 2:04 PM EDT) us Tracey Marin MD [facility] Final Result MANUALLY TRANSCRIBED RESULTS documented in this encounter Visit Diagnoses Not on filedocumented in this encounter Additional Health Concerns Assessment Noted Time PHQ-9 Depression Total Score: 12 024 1:16 PM EST A Body Mass Index follow-up plan has been documented for the patient 08/25/2022 6:32 AM EST documented as of this encounter Care Teams Manufacturing Engineering Technologist Relationship Specialty Start Date End Date Jaden Crabtree DO [address] [place] [address] PCP - General Family Medicine 01/17/21 documented as of this encounter
--- OUTSIDE RECORDS SUMMARY | 2025-06-15 00:07 | XMS_ITS | Encounter Summary ---
Author Organization [facility] tem Address [facility]-[id number] [address] [place] [address] Care Team Providers Care Buckle Coverer Name Role Phone Jaden Crabtree DO Primary Care Provider [phone] Encounter Details Date Type Department Care Team (Late st Contact Info) Description 01/28/2021 Orders Only [facility] [address] [place] [phone] Za Omer CMA Social History Tobacco Use [...] Description 07/26/2025 10:00 AM EDT [facility] Department of [facility] [address] [facility] [address] [place] [phone] Lyn Lawton MD [address] [place] [address] [address], [address] [place] [address] 09/12/2025 11:00 AM EST Office [facility] [address] [place] [address] Tony Martin MD [address] [place] [address] 101, [address], [address] [place] [address] documented as of this encounter Visit Diagnoses Not on filedocumented in this encounter Additional Health Concerns Assessment Noted Time A Body Mass Index follow-up plan has been documented for the patient 01/18/2021 11:36 AM EDT documented as of this encounter Care Teams Buckle Coverer Relationship Specialty Start Date End Date Jaden Crabtree DO [address] [place] [address] PCP - General Family Medicine 01/17/21 documented as of this encounter
--- OUTSIDE RECORDS SUMMARY | 2025-06-15 00:07 | XMS_ITS | Encounter Summary ---
Author Organization [facility] tem Address [facility]-[id number] [address] [place] [address] Care Team Providers Care Tank Truck Loader Name Role Phone Jaden Crabtree DO Primary Care Provider [phone] Reason for Visit * Reason Onset Date Comments Med Refill 05/21/2022 Encounter Details Date Type Department Care Team ([facility] Contact Info) Description 05/21/2022 Telephone [facility] [address] [place] [address] Susanna Tao Med Refill Social History Tobacco [...] day Pharmacy Name: [facility] [address] [place] [address] Request was made by: [facility] documented in this encounter Plan of Treatment Upcoming Encounters Date Type Department Care Team (Late st Contact Info) Description 07/26/2025 10:00 AM EDT Office Visit [facility], A Department of [address] [place] [address] Lyn Lawton MD [address] [place] [address] [address], [address] [place] [address] 09/12/2025 11:00 AM EST Office Visit [facility], A Department of [address], [address] [place] [address] Tony Martin MD [address] [place] [address] [address], [address], [address] [place] [address] documented as of this encounter Goals Goal [...] documented as of this encounter Care Teams Tank Truck Loader Relationship Specialty Start Date End Date Jaden Crabtree DO [address] [place] [address] PCP - General Family Medicine 01/17/21 documented as of this encounter
--- OUTSIDE RECORDS SUMMARY | 2025-06-15 00:07 | XMS_ITS | Encounter Summary ---
Author Organization [facility] Address [address] [place] [address] Care Team Providers Care Street Inspector Name Role Phone Jaden Crabtree Primary Care Provider [phone] Source Comments In the event this information is protected by the Federal Confidentiality of Alcohol and Drug AbusePatient Records regulations: The Federal rules restrict any use of the information to criminally investigate or prosecute any alcohol or drug abuse patient.[facility] Encounter Details Date Type Department Care Team (Late st Contact Info) Description 2023 [place] [address] Provider, [facility] Medicare Coverage of Physical Exams [...] place to sleep or slept in a mcc (including now)? No 11/25/2022 Area Deprivation Index Answer Date Ross rded National Score (1-100), lower number is lower ri sk Not on file 09/23/2020 State Score (1-10), lower number is lower risk N ot on file 09/23/2020 Data from: https://www.neighborhoodatlas.medicine.[facility].edu/. Last address used for calculation Not on [...] Assessment Author No 05/04/2020 8:04 PM Nelly Fyre RN documented as of this encounter Mental Status * Because of a physical, mental, or emotional condition, do you have serious difficulty concentrating, remembering, or making decisions? Answer Entry Date Author No 05/04/2020 8:04 PM Nelly Frye RN documented in this encounter Plan of Treatment Not on file documented as of this encounter Visit Diagnoses Not on filedocumented in this encounter Care Teams Street Inspector Relationship Specialty Start Date End Date Jaden Crabtree [address] [place] [phone] PCP - General 06/10/02 documented as of this encounter
--- OUTSIDE RECORDS SUMMARY | 2025-06-15 00:07 | XMS_ITS | Patient Health Record ---
Author Organization [facility] Address [address] [place] [address] Care Team Providers Care Gunner Mate Name Role Phone PCP, NO Primary Care Provider Kami Das Clair Charlottemelly Unavailable [phone] Allergies Allergen (clinical drug ingredient) Drug/Non Drug [...] Problem Status W/U Status Risk Notes Problem 221659404 Aftercare following surgery of the musculoskeletal system (Z47.89) Active confirmed Problem 15279411 Radiculopathy, cervical region (M54.12) Active confirmed Problem Bowel incontinence (35439354) Bowel incontinence (R15.9) Active confirmed Problem Spinal stenosis of lumbar region (95266101) Spinal stenosis, lumbosacral region (M48.07) Active confirmed Problem 62656557 Other intervertebral disc degeneration, lumbosacral region (M51.37) Active confirmed Problem 33626270248805529 Sciatica, righ t side (M54.31) Active confirmed Problem 64147756 Sciatica, left side (M54.32) Active confirmed Problem Urinary incontinence (733663167) Urinary incontinence (R32) Active confirmed Problem 31627420 Other cervical disc degeneration at C4-C5 level (M50.321) Active confirmed Problem 50521922 Other cervical disc degeneration at C5-C6 level (M50.322) Active confirmed Problem 78847667 Other cervical disc degeneration, high cervical region (M50.31) Active confirmed Problem Scoliosis of lumbar spine (511251236) Other form of scoliosis of lumbar spine (M41.86) Active confirmed Problem History of arthrodesis (893294152) 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 [address] [place] [phone] [id number] ALISIA CORREA Self - patient is the [...]
--- OUTSIDE RECORDS SUMMARY | 2025-06-15 00:07 | XMS_ITS | Encounter Summary ---
Author Organization [facility] tem Address [facility] [id number] [address] [place] [address] Care Team Providers Care Telephone Sales Representative Name Role Phone Michiramirez Jaden Dawson DO Primary Care Provider [phone] Encounter Details Date Type Department Care Team (Late st Contact Info) Description 09/28/2021 Orders Only [facility] [address] [place] [address] Shakeel Leiva MD Social History [...] Office Visit [facility], A Department of [facility] [address] [facility] 101, [address], [address] [place] [address] Lyn Lawton MD [address] [facility], [facility] 101, 102, [address] [place] [address] 09/12/2025 11:00 AM EST Office Visit [facility], A Department of [facility] [address] [facility] 101, 102, [address] [place] [phone] Tony Martin MD [address] [facility], [facility] 101, 102, [address] [place] [address] documented as of this encounter Goals Goal [...] documented as of this encounter Care Teams Telephone Sales Representative Relationship Specialty Start Date End Date Jaden Crabtree DO [address] [place] [address] PCP - General Family Medicine 01/17/21 documented as of this encounter
--- OUTSIDE RECORDS SUMMARY | 2025-06-15 00:07 | XMS_ITS | Encounter Summary ---
Author Organization [facility] Address [facility] [id number] [address] [place] [address] Care Team Providers Care Appeals Court Associate Justice Name Role Phone Jaden Crabtree DO Primary Care Provider [phone] Reason for Visit * Reason Comments Med Refill Encounter Details Date Type Department Care Team (Late st Contact Info) Description 10/16/2022 Refill [facility] [address] [place] [phone] Reena Cervantes APRN-CNP [address] [place] [address] 101, 102, [address] [place], [place] [phone] Parkinson's disease ([facility]) Social History Tobacco Use Types Packs/Day [...] 10:00 AM EDT Office Visit [facility], A Department of [address], [address], [address] [place] [phone] Lyn Lawton MD [address] [place] [address] 101, 102, [address] [place] [address] 09/12/2025 11:00 AM EST Office Visit [facility], A Department of [address] 101, 102, [address] [place] [phone] Tony Martin MD [address] [place] [address] 101, 102, 103 [place], [place] [phone] documented as of this encounter Goals Goal [...] documented as of this encounter Care Teams Appeals Court Associate Justice Relationship Specialty Start Date End Date Jaden Crabtree DO [address] [place] [address] PCP - General Family Medicine 01/17/21 documented as of this encounter
--- OUTSIDE RECORDS SUMMARY | 2025-06-15 00:07 | XMS_ITS | Encounter Summary ---
Author Organization [facility] Address [facility][id number] [address] [place] [address] Care Team Providers Care Manager Sterile Processing Name Role Phone Jaden Crabtree DO Primary Care Provider [phone] Reason for Visit * Reason Comments Med Refill Encounter Details Date Type Department Care Team (Late st Contact Info) Description 09/02/2023 Refill [facility] [address] [place] [phone] Andrés Bowden MD [address] [place] [address] 101, 102, [address] [place], [place] [phone] Orthostasis Social History Tobacco Use Types Packs/Day [...] Description 07/26/2025 10:00 AM EDT Office Visit [facility] Neu[facility], A Department of [address] 101, [address], [address] [place] [phone] Lyn Lawton MD [address] [place] [address] 101, 102, [address] [place] [address] 09/12/2025 11:00 AM EST Office Visit [facility] Neurology, A Department of [address] 101, 102, [address] [place] [phone] Tony Martin MD [address] [place] [address] 101, 102, [address] [place] [address] documented as of this encounter Goals Goal [...] as of this encounter Care Teams Manager Sterile Processing Relationship Specialty Start Date End Date Jaden Crabtree DO [address] [place] [address] PCP - General Family Medicine 01/17/21 documented as of this encounter
--- OUTSIDE RECORDS SUMMARY | 2025-06-15 00:07 | XMS_ITS | Encounter Summary ---
Author Organization [facility] Address [facility]-[id number] [address] [place] [address] Care Team Providers Care Toll Gate Keeper Name Role Phone Jaden Crabtree DO Primary Care Provider [phone] Encounter Details Date Type Department Care Team (Late st Contact Info) Description 03/02/2025 Orders Only [facility] [address] [facility] [address] [place] [address] Tracey Marin MD [address], [facility] [address] [place] [address] Social History Tobacco Use Types Packs/Day Years [...] 07/26/2025 10:00 AM EDT Office Visit [facility] Neurology, A Department of [address] [place] 101, 102, [address] [place] [phone] Lyn Lawton MD [address] [place] [address], [place] 101, 102, [address] [place] [address] 09/12/2025 11:00 AM EST Office Visit [facility] Neu[facility], A Department of [address] [place] 101, 102, [address] [place] [phone] [place] [address] [place] [address], [place] 101, 102, [address] [place] [address] documented as of this encounter Goals Goal [...] FOR ABDOM (03/02/2025 12:17 PM EDT) us Mohamed F Tomas MD [facility] Final Result documented in this encounter Visit Diagnoses Not on filedocumented in this encounter Additional Health Concerns Assessment Noted Time PHQ-9 Depression Total Score: 21 024 11:29 AM EST A Body Mass Index follow-up plan has been documented for the patient 10/07/2024 3:14 PM EST documented as of this encounter Care Teams Toll Gate Keeper Relationship Specialty Start Date End Date Jaden Crabtree DO [address] [place], [place] [phone] PCP - General Family Medicine 01/17/21 documented as of this encounter
--- OUTSIDE RECORDS SUMMARY | 2025-06-15 00:07 | XMS_ITS | Encounter Summary ---
Author Organization [facility] tem Address [facility] [place]-[id number] [address] [place] [address] Care Team Providers Care Filing Machine Operator Name Role Phone Jaden Crabtree DO Primary Care Provider [phone] Reason for Visit * Reason Onset Date Comments Reschd appt 12/19/2021 Encounter Details Date Type Department Care Team (Late st Contact Info) Description 12/19/2021 Telephone [facility] [address] [place] [phone] Carmen Espinal Reschd appt Social History Tobacco [...] and sent letter. Date: 04/29/22 Provider: Dr. oBwden Rescheduling Instructions: Next Available documented in this encounter Plan of Treatment Upcoming Encounters Date Type Department Care Team (Late st Contact Info) Description 07/26/2025 10:00 AM EDT Office Visit [facility] Neurology, A Department of [address], [address], [address] [place] [phone] Lyn Lawton MD [address] [place] [address], [facility] 101, 102, [address] [place] [address] 09/12/2025 11:00 AM EST Office Visit [facility] Neurology, A Department of [address] 101, 102, [address] [place] [phone] Tony Martin MD [address] [place] [address], [facility] 101, 102, [address] [place] [address] documented as of this encounter Goals Goal [...] documented as of this encounter Care Teams Filing Machine Operator Relationship Specialty Start Date End Date Jaden Crabtree DO [address] [place] [address] PCP - General Family Medicine 01/17/21 documented as of this encounter
--- OUTSIDE RECORDS SUMMARY | 2025-06-15 00:07 | XMS_ITS | Encounter Summary ---
Author Organization [facility] Address [facility]-[id number] [address] [place] [address] Care Team Providers Care Apartment Locator Name Role Phone Jaden Crabtree DO Primary Care Provider [phone] Encounter Details Date Type Department Care Team (Late st Contact Info) Description 03/19/2021 Orders Only [facility] [address] [place] [address] Omar Arias CMA Erythema; PAD (peripheral artery disease) ([facility]); Claudication ([facility]); Swelling of lower extremity; Venous insufficiency [...] Description 07/26/2025 10:00 AM EDT [facility] Department of [address] [place] 101, [address], [address] [place] [phone] [place] [address] [place] [address], [place] 101, 102, [address] [place] [address] 09/12/2025 11:00 AM EST Office Visit [facility] Neurology, A Department of [address] [place] 101, [address], [address] [place] [phone] Tony Martin MD [address] [place] [address], [place] 101, 102, [address] [place] [address] documented as of this encounter Goals Goal [...] SERUM Routine 01/31/2021 PAD (peripheral artery disease) ([facility]) Claudication ([facility]) Swelling of lower extremity Venous insufficiency of both lower extremities Discoloration of skin of lower leg Erythema documented in this encounter Results * CT angiogram abdominal aorta with runoff (03/19/2021 12:01 PM EDT) Anatomical Region Laterality Modality Body, Abdomen, Body Covera N/A Compu jacqueline Tomography Sergio Anguiano MD IMG CT ORDERABLES Final Result * Creatinine includes GFR, serum (03/19/2021) us Not In System Ref Prov LAB BLOOD ORDERABLES Deanna l Result MANUALLY TRANSCRIBED RESULTS * Creatinine includes GFR, serum (01/31/2021) External Creatinine 1.13 SUNQUEST External Gfr Amer >60 SUNQUEST External Gfr Non Amer >80 SUNQUEST 01/31/2021 us Sergio Anguiano MD LAB BLOOD ORDERABLES Final Resu lt Performing Organization Address City/[facility] Co de Phone Number SUNQUEST documented in this encounter Visit Diagnoses Diagnosis [...] documented as of this encounter Care Teams Apartment Locator Relationship Specialty Start Date End Date Jaden Crabtree DO [address] [place] [address] PCP - General Family Medicine 01/17/21 documented as of this encounter
--- OUTSIDE RECORDS SUMMARY | 2025-06-15 00:07 | XMS_ITS | Encounter Summary ---
Author Organization [facility] [employer] [facility] tem Address [facility] [place]-[id number] [address] [place] [address] Care Team Providers Care Pressure Tester Operator Name Role Phone Jaden Crabtree DO Primary Care Provider [phone] Encounter Details Date Type Department Care Team (Late st Contact Info) Description 06/27/2022 Telephone [facility] [address] [place] [phone] Yordan Zimmer, MARTI Social History Tobacco Use [...] Office Visit [facility], A Department of [facility] [address] [facility] 101, 102, [address] [place] [phone] Lyn Lawton MD [facility]0 [facility] 101, 102, [address] [place] [address] 09/12/2025 11:00 AM EST Office Visit [facility], A Department of [address] 101, 102, [address] [place] [phone] Tony Martin MD [facility]0 [facility] 101, 102, [address] [place] [address] documented as of this encounter Goals Goal [...] documented as of this encounter Care Teams Pressure Tester Operator Relationship Specialty Start Date End Date Jaden Crabtree DO [address] [place] [address] PCP - General Family Medicine 01/17/21 documented as of this encounter
--- OUTSIDE RECORDS SUMMARY | 2025-06-15 00:07 | XMS_ITS | Encounter Summary ---
Author Organization [facility] Address [address] [place] [address] Care Team Providers Care Loop Sewer Name Role Phone Jaden Crabtree Primary Care Provider [phone] Source Comments In the event this information is protected by the Federal Confidentiality of Alcohol and Drug AbusePatient Records regulations: The Federal rules restrict any use of the information to criminally investigate or prosecute any alcohol or drug abuse patient.[facility] Encounter Details Date Type Department Care Team (Late st Contact Info) Description 12/09/2007 Abstract Endocrinology [address] [phone] Rachelle Mcqueen MD [address] [phone] Social History Tobacco Use Types Packs/Day Years [...] 5h GTT results faxed from Dr Jaden Crabtree,[address] [address] (Ph) Pat being referred for syncope and [...] documented as of this encounter Care Teams Loop Sewer Relationship Specialty Start Date End Date Jaden Crabtree [address] [place] [phone] PCP - General 06/10/02 documented as of this encounter
--- OUTSIDE RECORDS SUMMARY | 2025-06-15 00:07 | XMS_ITS | Encounter Summary ---
Author Organization [facility] tem Address [facility] [place]-[id number] [address] 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 ([facility]) Social History Tobacco Use Types Packs/Day Years [...] Description 07/26/2025 10:00 AM EDT Office Visit [facility] Neurology, A Department of [address] 101, [address], [address] [place] [phone] Lyn Lawton MD [address] [place] [address] 101, 102, [address] [place] [address] 09/12/2025 11:00 AM EST Office Visit [facility] Neurology, A Department of [address] 101, 102, [address] [place] [phone] Tony Martin MD [address] [place] [address] 101, 102, [address] [place] [address] documented as of this encounter Goals Goal [...] documented as of this encounter Care Teams Human Resources Generalist Relationship Specialty Start Date End Date Jaden Crabtree DO [address] [place] [address] PCP - General Family Medicine 01/17/21 documented as of this encounter
--- OUTSIDE RECORDS SUMMARY | 2025-06-15 00:07 | XMS_ITS | Encounter Summary ---
Author Organization [facility] tem Address [facility] [place][id number] [address] [place] [address] Care Team Providers Care Drafter Geological Name Role Phone Jaden Crabtree DO Primary Care Provider [phone] Reason for Visit * Reason Onset Date Comments Med Refill 05/23/2022 Encounter Details Date Type Department Care Team (Late st Contact Info) Description 05/23/2022 Telephone [facility] [address] [place] [phone] Peace Romo Med Refill Social History Tobacco [...] 05/23/22 11:[facility] script for Sinemet ER. She said that they have script for the regular 25-100 mg, but they need the ER and do not know the dosage for this. Last office visit with Reena Cervantes 09/26/21. Please send med refill script to [facility] in [place] located at: [address] [facility], [facility]. Their callback# if needed: [phone]. documented in this encounter Plan of Treatment Upcoming Encounters Date Type Department Care Team ([facility] Contact Info) Description 07/26/2025 10:00 AM EDT Office Visit [facility] Neurology, A Department of [address] 101, [address], [address] [place] [phone] Lyn Lawton MD [address] [place] [address] 101, 102, [address] [place] [address] 09/12/2025 11:00 AM EST Office Visit [facility] Neurology, A Department of [address] 101, 102, [address] [place] [address] Tony Martin MD [address] [place] [address] 101, 102, [address] [place] [address] documented as of this encounter Goals Goal [...] documented as of this encounter Care Teams Drafter Geological Relationship Specialty Start Date End Date Jaden Crabtree DO [address] [place] [address] PCP - General Family Medicine 01/17/21 documented as of this encounter
--- OUTSIDE RECORDS SUMMARY | 2025-06-15 00:07 | XMS_ITS | Clinical Summary ---
Author Organization [facility] Address [address] [facility], [address] [place] [address] Care Team Providers Care Pie Maker Machine Name Role Phone Jaden Crabtree DO Primary Care Provider [phone] Allergies Active Allergy Reactions Criticality Noted Date Comments Moxifloxacin Hives,Shortness Of Breath High 01/24/20 22 Celecoxib Hives Medium 01/23/2022 Erythromycin Itching,Nausea And Vomiting Low 2021 Clonazepam Shortness Of Breath High 01/23/2022 Levofloxacin Hives,Shortness Of Breath High 01/24/20 22 Medications [place]-3 Fatty Acids (FISH OIL) 1200 MG CAPS [...] on file Medical Devices Implanted Type Area Health Nurse Device Identifier Shelf Expiration Date Model / Serial / Lot Screw Spinal Streamline 7.5x55mm - [id number] Implanted:Qty: 1 on 02/07/2022 by Frank Loza MD at [facility] Spine N/A: Spine Lumbar [employer] [id number] / / Set Scr Spnl Ti Streamline - [id number] Implanted:Qty: 9 on 02/07/2022 by Frank Loza MD at [facility] N/A: Spine Lumbar [employer] [id number] / / Screw Spnl L45mm Dia7.5mm Thorlum Ti Ally Polyax Streamline - [id number] Implanted:Qty: 2 on 02/07/2022 by Frank Loza MD at [facility] N/A: Spine Lumbar [employer] [id number] / / Screw Spnl L50mm Dia7.5mm Thorlum Ti Ally Polyax Streamline - [id number] Implanted:Qty: 6 on 02/07/2022 by Frank Loza MD at [facility] N/A: Spine Lumbar [employer] [id number] / / Ta Spnl L120mm Nij00ve Thorlum Prebent Streamline - [id number] Implanted:Qty: 1 on 02/07/2022 by Frank Loza MD at [facility] N/A: Spine Lumbar [employer] [id number] / / Ta Spnl L100mm [id number] Thorlum Prebent Streamline - [id number] Implanted:Qty: 1 on 02/07/2022 by Frank Loza MD at [facility] N/A: Spine Lumbar [employer] [id number] / / Additional Health Concerns Infection Onset Date Last Indicated MRSA Comment:Thuan 01/202201/23/2022 01/23/[address] [place] [address] [id number] Advance Directives * Full Code (Latest Code Status on File) Date Activated Date Inactivated Comments 02/13/2022 7:01 AM 02/18/2022 2:18 PM * Full Code Date Activated Date Inactivated Comments 02/07/2022 8:29 AM 02/07/2022 4:12 PM Care Teams Pie Maker Machine Relationship Specialty Start Date End Date Jaden Crabtree DO [address] [place] [address] [address] PCP - General Family Medicine 01/23/22
--- OUTSIDE RECORDS SUMMARY | 2025-06-15 00:07 | XMS_ITS | Encounter Summary ---
Author Organization [facility] Address [address] [place] [address] Care Team Providers Care Paper Goods Machine Set Up Operator Name Role Phone Jaden Crabtree DO Primary Care Provider [phone] Encounter Details Date Type Department Care Team (Late st Contact Info) Description 05/30/2025 Orders Only [facility] Heart at [facility] [address] [place] [phone] ProviderJameson MD [facility] [place] [address] Social History Tobacco Use Types [...] Description 07/11/2025 10:30 AM EDT Ancillary Procedure [facility] at [facility] [address] [place] [phone] documented as of this encounter Procedures Procedure Name Priority Date/Time Associated Diagnosis Comments CARDIAC EVENT MONITOR Routine 05/10/2025 4:14 PM EDT documented in this encounter Results * Cardiac event monitor (05/10/2025 4:14 PM EDT) Anatomical Region Laterality Modality Other us Historical Provider [facility] DE [facility] Final Result documented in this encounter Visit Diagnoses Not on filedocumented in this encounter Care Teams Paper Goods Machine Set Up Operator Relationship Specialty Start Date End Date Jaden Crabtree DO [address] [place] [address] PCP - General Family Medicine 04/25/25 documented as of this encounter
--- OUTSIDE RECORDS SUMMARY | 2025-06-15 00:07 | XMS_ITS | CCD ---
Author Organization [facility]iniSy[facility] Care Team Providers Care Incident Handler Name Role Phone RICCHETTI, SERGEY T Unavailable [...] Attending Unavailable ELLEN CRABTREE Primary Care Unavailable IAVNA, FARIHAMI A Consulting Unavailable RANDA, SASIKALA T [...] Care Unavailable ELLEN CRABTREE Primary Care Physician MISC, DR MYERS Consulting Unavailable MISC, DR [...] Unavailable KUNS, DR HUGHES Primary Care Unavailable CHINA, DR LIZETH Momin Consulting Unavailable NADERER, DR JOSE ALEJANDRO Crowe Consulting Unavailable CHRISTIAN, EN Consulting Unavailable DIAB ., MERCEDEZ Consulting Unavailable Kundavion, DO Hughes Primary Care Provider DO Bernice Shrestha Attending Provider IBARRA, Fidel R Admitting Unavailable IBARRA, Fidel R Attending Unavailable IBARRA, Fidel R Attending Unavailable IBARRA, Fidel R Attending Unavailable Orzech, Ppipa X Attending Unavailable IBARRA, Fidel R Attending [...] le Ellen Crabtree DO Primary Care Provider [phone] Ellen Crabtree DO Primary Care Provider Benitez Ortega DO Emergency Provider Ellen Crabtree DO Attending Provider [phone] Heidy Marin MD Referring Provider [phone] Ellen Crabtree DO Primary Care Provider UnavailMercedez Botello MD Attending Provider Ellen Crabtree DO Primary Care Provider [phone] Ellen Crabtree DO Attending Provider Heidy Marin MD Referring Provider Mercedez Cramer MD Attending Provider LYN MACE Attending Unavailable LYN MACE Attending Unavailable LYN MACE Attending Unavailable LYN MACE Attending Unavailable LYN MACE Admitting Unavailable Romel Leonardo MD Attending Provider [phone] Mercedez Cramer Admitting Unavailable Mercedez Cramer Attending Unavailable Romel Leonardo Admitting Unavailable Romel Leonardo Attending Unavailable Ellen Crabtree Primary Care Unavailable Ellen Crabtree Admitting Unavailable Ellen Crabtree Attending Unavailable Tomas, Mohamed F Referring Unavailable Kuns, Ellen Primary Care Unavailable Benitez Ortega Attending Unavailable KeBenitez martinez A Admitting Unavailable [...] Unavailable KUNS, ELLEN R Primary Care Unavailable RICHARD, LORA Referring Unavailable CHERELLE BOTELLO Attending Unavailable BRAD, JAC Attending Unavailable RICHARD, LORA Attending Unavailable RICHARD, LORA Admitting Unavailable RICHARD, LORA Attending Unavailable RICHARD, LORA Referring Unavailable RICHARD, LORA Referring Unavailable RODRI, LYN E Attending Unavailable RODRI, LYN E Attending Unavailable RODRI, LYN E Attending Unavailable RODRI, LYN E Attending Unavailable RODRI, LYN E Attending Unavailable OrzechPippa Attending Unavailable RODRI, LYN E Attending Unavailable Michelle Mahoney Attending Unavailable RODRI, YLN E Attending Unavailable Allergies Allergy Classification Reported Allergen(s) Allergy Type Date of Onset Reaction(s) Facility (20 sources) celecoxib; Translations: [CELECOXIB] Drug Allergy 06-04-20 17 Rash, Hives, GI Upset, Weal (disorder) [facility] Repository (20 sources) clonazePAM; Translations: [CLONAZEPAM] Drug Allergy 06-04-20 17 Itching, Shortness Of Breath, Dyspnea (finding) [facility] Repository (20 sources) levoFLOXacin; Translations: [LEVOFLOXACIN] Drug Allergy 01-30-20 10 Hives, Shortness Of Breath, Dyspnea (finding) [facility] Repository (9 sources) moxifloxacin; Translations: [MOXIFLOXACIN HCL] Drug Allergy 07-20-20 06 Rash, Hives, Itching, Shortness of Breath [facility] Repository (20 sources) ERYTHROMYCIN BASE; Translations: [ERYTHROMYCIN BASE] Propensity to adverse reactions to drug (disorder) 03-06-20 04 Hives, Shortness of Breath [facility] Other [place] Repository (7 sources) celecoxib; Translations: [CeleBREX] Drug Allergy 06-25-20 12 [facility] Repository (1 source) erythromycin Drug Allergy 06-25-20 12 [facility] Repository (20 sources) levoFLOXacin Drug Allergy 06-25-20 12 Unknown [facility] Repository (7 sources) moxifloxacin; Translations: [Avelox] Drug Allergy 06-25-20 12 [facility] Repository (5 sources) celecoxib; Translations: [CeleBREX CAPS] Drug Allergy [place] [address] DO Work Phone: (5 sources) clonazePAM; Translations: [KlonoPIN TABS] Drug Allergy [facility] 250 DO Work Phone: (5 sources) levoFLOXacin; Translations: [Levaquin] Drug Allergy [place] [address] DO Work Phone: (20 sources) moxifloxacin; Translations: [Avelox] Drug Allergy 07-19-20 06 Hives, Shortness Of Breath, Dyspnea (finding), Eruption of skin (disorder), Itching (finding), Urticaria (disorder), Weal (disorder), Itching, Rash [facility] (5 sources) Erythromycin Derivatives; Translations: [Erythromycin Derivatives] Allergy to drug (finding) [place] [address] DO Work Phone: (2 sources) celecoxib; Translations: [Celebrex] Drug Allergy [facility] (7 sources) clonazePAM; Translations: [Klonopin] Drug Allergy [facility] Repository (20 sources) Erythromycin; Translations: [erythromycin] Drug Allergy 01-18-20 21 Itching, Nausea And Vomiting, Nausea (finding) [employer] Other (2 sources) levoFLOXacin; Translations: [Levaquin] Drug Allergy [employer] (2 sources) moxifloxacin; Translations: [Avelox] Drug Allergy [facility] [employer] (20 sources) pimavanserin; Translations: [PIMAVANSERIN] Drug Allergy 08-23-20 [facility] (19 sources) moxifloxacin; Translations: [moxifloxacin] Drug Allergy 07-19-20 06 Unknown Reaction, Hives [facility] Medications Current Medications Medication Drug Class(es) [...] as needed (Migraine). 90 tablet 02/19/2021 Active [id number] 200 actuat albuterol 0.09 mg/actuat metered dose inhaler (20 sources) beta2-Adrenergic Agonist Start: 12-14-19 Albuterol Sulfate (Ventolin Hfa) 90 mcg/actuation HFA [...] Daily, # 30 tab(s), Refills(s) 0, Pharmacy: [facility] 1155, 175, cm, 01/16/23 10:13:00 EDT, Height/Length [...] Comment on above: Take 1 capsule by [facility] three times daily as needed for cough. [...] Start: 11-04-2022 take 2 tablets by mo uth once in the morning, then take 2 [...] mg per tablet Indications: PD (Parkinson's disease) ([facility]) Take 1.5 tablets by mouth four times [...] four times daily. Take 2 tablets by [facility] at 6 am, 2 tablets at 10 am, and 1 tablet at 2 pm, 6 pm, 10 pm and 2 am. cefdinir 300 mg oral capsule (11 sources) Cephalosporin Antibacterial Start: 02-23-2024 End: 03-04-2024 take 1 capsule by mouth every twelve hours cefdinir 300 mg Cap 300 mg = 1 cap(s), Oral, q12hr, X 10 day(s), # 20 cap(s), Refills(s) 0, Pharmacy: [facility]5, 175, cm, 03/20/23 9:07:00 EDT, Height/Length Dosing, 92, kg, 03/20/23 9:07:00 EDT, Weight Dosing Start Date: 02/23/24 Stop Date: 03/04/24 Status: Ordered Start: 06-11-2023 End: 06-21-2023 take 1 capsule by mouth every twelve hours cefdinir 300 mg Cap 300 mg = 1 cap(s), Oral, q12hr, X 10 day(s), # 20 cap(s), Refills(s) 0, Pharmacy: [facility], 175, cm, 03/20/23 9:07:00 EDT, Height/Length Dosing, 92, kg, 03/20/23 9:07:00 EDT, Weight Dosing Start Date: 06/11/23 Stop Date: 06/21/23 Status: Ordered take 1 capsule by [facility] every twelve hours Cefdinir 300 MG 1 [...] on above: Take 1 capsule by mo [facility] twice daily. doxycycline hyclate 100 mg oral capsule (2 sources) Tetracycline-class Drug Start: 05-25-20 End: 06-04-20 take 1 capsule by mouth twice daily doxycycline hyclate 100 mg Cap 100 mg = 1 cap(s), Oral, BID, X 10 day(s), # 20 cap(s), Refills(s) 0, Pharmacy: [facility] 1155, 175, cm, 03/20/23 9:07:00 EDT, Height/Length [...] Comment on above: Take 1 capsule by [facility] once daily. 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 Take 3 tablets by mo [facility] once daily. Take at 7:00am Take 1 [...] BID, # 5 cap(s), Refills(s) 0, Pharmacy: [facility], 175, cm, 03/20/23 9:07:00 EDT, Height/Length Dosing, 92, kg, 03/20/23 9:07:00 EDT, Weight Dosing Start Date: 07/22/23 Status: Ordered Start: 06-11-2023 End: 06-21-2023 take 1 capsule by mouth twice daily Macrobid 100 mg Cap 100 mg = 1 cap(s), Oral, BID, X 10 day(s), # 20 cap(s), Refills(s) 0, Pharmacy: [facility] 1155, 175, cm, 03/20/23 9:07:00 EDT, Height/Length [...] 11/20/2022 Discontinued take 1 tablet by brendan three times daily Potassium Citrate ER 15 [...] daily. pyridostigmine bromide 60 mg oral tablet (5 sources) Start: 025 take 0.5-1 tablets by [...] Active 2 DROPS EYE-BOTH Every 4 hours 5 August 09, 2024 12:00am 24 hr tolterodine tartrate 4 mg extended release oral capsule (20 sources) Cholinergic Muscarinic Antagonist Start: 07-25-2024 take 1 capsule by mouth once daily tolterodine 4 mg Cap-ER 4 mg = 1 cap(s), Oral, Daily, # 30 cap(s), Refills(s) 11, Pharmacy: [facility] 1155, 177, cm, 03/15/24 11:26:00 EDT, Height/Length Dosing, 95.3, kg, 03/15/24 11:26:00 EDT, Weight Dosing Start Date: 07/25/24 Status: Ordered Quantity: 30.0 Unit: cap(s) Repeat number: 12 Start: 08-29-2021 End: 01-06-2024 take 1 capsule by mouth once daily Tolterodine 4 mg capsule,extended release 24hr Active 4 MG PO Daily January 06, 2024 12:00am take 1 capsule by [facility] every twenty-four hours in the morning tolterodine [...] Start: 11-19-2021 take 1 capsule by mo uth once daily topiramate oral capsule,ashia,ER 24hr 100 [...] Take 1 tablet by brendan twice daily. traMADol hydrochloride 50 mg oral [...] Take 1 tablet by brendan twice daily. azithromycin 250 mg oral tablet (4 sources) Macrolide Antimicrobial Start: 10-18-20 End: 12-30-19 Azithromycin (Zithromax Z-Josué) 250 mg tablet Discontinued 0 PO .COMPLEX October 18, 2024 1:00am December 29, 2024 1:41pm For 250 mg dose pack: take 500 mg today (day 1), then 250 mg for 4 days (days 2-5) PO Balsam [place] Oil (4 sources) Start: 03-07-20 End: 03-23-20 Balsam [place] Discontinued 1 APPLIC TOPICAL Three times daily 60 March 07, 2022 12:00am March 23, 2023 1:58pm Balsam [place] Ointment (4 sources) Start: 03-07-20 End: 03-23-20 Balsam [place] Ointment Discontinued 1 APPLIC TOPICAL Three times daily 60 March 07, 2022 12:00am March 23, 2023 1:58pm Start: 03-07-2022 End: 03-23-2023 Balsam [place] Oil Ointm ent Discontinued 1 APPLIC TOPICAL [...] Start: 02-07-2022 take 10 mg rectal ro jeromy once daily as needed 10 mg, Rectal, [...] daily as needed for Muscle Spasm 90 March 07, 2022 12:00am March 23, 2023 1:58pm Start: 02-07-2022 End: 02-23-2022 take 1 tablet by mouth three times daily as needed for muscle spasms cyclobenzaprine (FLEXERIL) 10 MG tablet Take 1 tablet by mouth 3 times daily as needed for Muscle spasms 30 tablet 0 02/13/2022 02/23/2022 Active docusate sodium 50 mg / sennosides, halfway [...] (11 sources) Antihistamine Start: 02-18-20 End: 08-29-20 21 take 100 mg by mouth once daily [...] Inhibitor Start: 04-12-2020 Toradol per 15 mg 25 Mar, 2020 2 cc Start: 05-06-2018 Toradol per 15 [...] Toradol per 15 mg Jan, 2ml Lanolin Ficncwi-Xi-Y.Pet-Cer es (Minerin Creme) Cream (8 sources) Start: 04-19-2023 End: 01-06-2024 Lanolin Zpjaxcx-Va-Q.Pet-Cer es (Minerin Creme) Cream Discontinued 1 APPLIC TOPICAL Twice daily 11 17April 18, 2023 11:00pm January 06, 2024 3:09pm Start: 04-19-2023 End: 01-06-2024 Lanolin Ruayldg-Wj-P.Pet-Cer es (Minerin Creme) Cream Discontinued 1 APPLIC [...] Start: 08-15-2013 take 1 capsule by mo alh once daily Multivitamins DX: 285.9 1 capsule [...] 2023 12:00am January 06, 2024 4:09pm Nystatin 233101 UNIT/GM 1 application Externally Twice a day Active Sutton-3 Fatty Acids (4 sources) Start: 02-18-2022 End: 03-23-2023 take 1000 mg by mouth once daily in the morning Sutton-3 Fatty Acids Discontinued 1000 MG PO Every morning February 18, 2022 12:00am March 23, 2023 1:58pm Sutton-3 Fatty Acids Capsule (4 sources) Start: 02-18-2022 End: 03-23-2023 take 1 capsule by mouth once daily in the morning Sutton-3 Fatty Acids Capsule Discontinued 1000 MG PO Every morning February 18, 2022 12:00am March 23, 2023 1:58pm Start: 02-18-2022 End: 03-23-2023 take 1 capsule by mouth once daily in the morning Sutton-3 Fatty Acids Capsule Discontinued 1000 MG PO [...] tablet,disintegratin g Discontinued 4 MG PO Daily January 13, 2025 12:00am January 30, 2025 [...] on above: Take 1 capsule by mo [facility] daily at bedtime. polyethylene glycol 3350 38369 mg powder for oral solution (20 sources) [...] subq twice a week; Note: Source Status: Not-IeprtapfwhjakqzJNX43yc vial; Refills: 0; Qty: 10 ml; Provider: [...] major depressive disorder without prior episode ([facility]) Take 1 capsule (75 mg total) by [...] indwelling urethral catheter, sequela Episodic Conduction disorders (4 sources) Other specified heart block; Translations: [Presence of cardiac pacemaker] Onset: 04-28-2025 Chronic Coronary atherosclerosis and other heart disease [...] lower limb ischemia ; Translations: [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, bilateral legs] [...] 12-06-2022 Episodic Other aftercare (1 source) 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; Translations: [OTH [facility] CURRENT DRUG THERAPY] Onset: 02-13-2023 Episodic Other aftercare (2 sources) Encounter for other specified surgical aftercare; Translations: [Encounter for other specified surgical aftercare] Onset: 06-12-2025 Episodic Other bone disease and musculoskeletal deformities [...] pain syndrome] Chronic Other nervous system disorders (18 sources) Difficulty walking; Translations: [Difficulty in walking, [...] 08-29-2020 Episodic Acute and unspecified renal failure (11 sources) Acute renal failure syndrome Onset: 08-20-2023 [...] Resolved: 08-23-2024 08-23-2024 Other aftercare (1 source) 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; 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] Onset: 12-22-2022 Episodic [...] Test Name Value Interpretation Reference Range Facility Follow-Upon 06-12-2025 Follow-Up [id number] Lina Correa 1960 [facility] Provider Department Center 06/12/2025 [id number], ADAM RAMIRO [facility] Family History Problem Relation Age of Onset Asthma Mother Depression Mother Hypertension Mother Hypotension Mother Kidney disease Mother Diabetes type II Father Hypertension Father Cancer Brother Heart attack Mother's Brother Heart attack Maternal Grandfather Family Status - Relation Status Age at Mother Father Brother Alive Mother's Brother Maternal Grandfather Level of Service:32717 NM OFFICE/OUTPATIENT ESTABLISHED MOD MDM 30 MIN Normal [facility] Orders Onlyon 06-06-2025 Orders Only [id number] Lina Correa 1960 Date Provider Department Center 06/06/2025 [id number], HISTORICAL [facility] Family History Problem Relation Age of Onset Asthma Mother Depression Mother Hypertension Mother Hypotension Mother Kidney disease Mother Diabetes type II Father Hypertension Father Cancer Brother Heart attack Mother's Brother Heart attack Maternal Grandfather Family Status - Relation Status Age at Mother Alive Father Alive Brother Alive Mother's Brother Maternal Grandfather Normal [facility] HPon 06-05-2025 [facility] Electrophysiology Consult Note [place] [facility] - [facility] Reason for visit: Syncope HPI: Alisia [...] on. He has followed up with the family physician at [place] and subsequently for his autonomic hypotension and [...] Resource Strain: Low Risk (11/25/2022) Received from [facility] Overall Financial Resource Strain (CARDIA) Difficulty of Paying Living Expenses: Not very hard Food Insecurity: No Food Insecurity (03/16/2025) Received from [facility] Hunger Screening Within the past 12 months we worried whether our food would run out before we got money to buy more.: Never True Within the past 12 months the food we bought just didn't last and we didn't have money to get more.: Never True Transportation Needs: No Transportation Needs (11/25/2022) Received from [facility] PRAPARE - Transportation Lack of Transportation [...] Housing Stability: Low Risk (11/25/2022) Received from [facility] Housing Stability Vital Sign Unable to [...] kg (200 lb) SpO2 97% BMI 28.70 kg/m??? Smoking Status Former BSA 2.12 m??? Meds: Medications Ordered Prior to Encounter[4] [...] Value Ventricular Rate 63 Atrial Rate 63 NM Interval 164 QRS DURATION 90 QT Interval 440 QTC CALCULATION(BAZETT) 450 P Bill[place]ley -4 R-Billingsley -31 T Wave [place] 30 Impression Normal sinus rhythm Left axis [...] has elements of orthostatic hypotension that is unrel (more content not included)... Normal [facility] NURSNOTEon 06-05-2025 NURSNOTE RN educated pt on d/ c instructions. This included: site care, limited physical [...] any questions or concerns if pt verbalized. Normal [facility] NURSNOTE CHG wipes and betadi ne nasal swabs completed. Normal [facility] Orders Onlyon 06-05-2025 Orders Only [id number] Lina Correa 1960 M Date Provider Department Center 06/05/2025 MAGALIE RUCKER [facility] Family History Problem Relation Age of Onset Asthma Mother Depression Mother Hypertension Mother Hypotension Mother Kidney disease Mother Diabetes type II Father Hypertension Father Cancer Brother Heart attack Mother's Brother Heart attack Maternal Grandfather Family Status - Relation Status Age at Mother Alive Father Alive Brother Alive Mother's Brother Maternal Grandfather [facility] Orders Onlyon 05-30-2025 Orders Only [id number] Lina Correa 1960 M Date Provider Department Center 05/30/2025 [id number], HISTORICAL RAMIRO [facility] Family History Problem Relation Age of Onset Asthma Mother Depression Mother Hypertension Mother Hypotension Mother Kidney disease Mother Diabetes type II Father Hypertension Father Cancer Brother Heart attack Mother's Brother Heart attack Maternal Grandfather Family Status - Relation Status Age at Mother Alive Father Alive Brother Alive Mother's Brother Maternal Grandfather [facility] Office Visiton 04-25-2025 Follow-up visit [id number] Lina Correa 1960 M Date Provider Department Center 04/25/2025 Zarina-RICHARDLORA RAMIR[facility] Family History Problem Relation Age of Onset Asthma Mother Depression Mother Hypertension Mother Hypotension Mother Kidney disease Mother Diabetes type II Father Hypertension Father Cancer Brother Heart attack Mother's Brother Heart attack Maternal Grandfather Family Status - Relation Status Age at Mother Alive Father Alive Brother Alive Mother's Brother Maternal Grandfather Level of Service:38372 NM OFFICE/OUTPATIENT [facility] 60 MINUTES Normal [facility] Orders Onlyon 04-25-2025 Orders Only [id number] Lina Correa 1960 M Date Provider Department Center 04/25/2025 Jagdeep-ALANA JAY [facility]IR[facility] Family History Problem Relation Age of Onset Asthma Mother Depression Mother Hypertension Mother Hypotension Mother Kidney disease Mother Diabetes type II Father Hypertension Father Cancer Brother Heart attack Mother's Brother Heart attack Maternal Grandfather Family Status - Relation Status Age at Mother Alive Father Alive Brother Alive Mother's Brother Maternal Grandfather [facility] Ambulatory Visit Summaryon 0 04-24-2025 Ambulatory Visit [...] LYN MACE PA-C Where: [facility] [place] [id number] Medications What How Much When Instructions Unchanged [...] signed up for this yet, please contact [employer] at [phone] to get signed up today. Language Information Language assistance services are available as needed. Normal [facility] Documentationon 04-14-2025 Documentation [id number] Lina Correa 1960 M Date Provider Department Center 04/14/2025 CHERELLE MATTHEW [facility] Family History Problem Relation [...] will see he is scheduled soon. Normal [facility] SEGMENTAL BLOOD PRESSUREon 0 04-11-2025 [place] [id number] Cardiology Report Signed Patient: ALISIA CORREA MR#: [id number] : 1960 Acct:[id number] Age/Sex: 64 / M ADM Date: 04/11/25 Loc: CARD Attending Dr: Heidy Marin M.D. Ordering Physician: Heidy Marin M.D. Date of Service: 04/11/25 Procedure(s): CA segmental UE or LE MARIXA Accession Number(s): [id number] cc: ELLEN CRABTREE ; Heidy Marin M.D. [facility] Test Date: 2025-04-11 Pat Name: ALISIA CORREA Department: Room: - Gender: Male Carpet Jack: : 1960 Requested By: 1894 Order Number: [id number] Reading MD: ISMAEL JC M.D. Interpretive Statements [...] by ISMAEL JC M.D. Dictated By: ISMAEL CJ Signed By: 04/11/25 2214 04/11/25 2214 DD/ 1548 TD/TT: Interactive Designer: [facility] Radiology, Radiologisatu long MD - 04/11/2025 [place] [address] Cardiology Report Signed Patient: ALISIA CORREA MR#: [id number] : 1960 Acct:[id number] Age/Sex: 64 / M ADM Date: 04/11/25 Loc: CARD Attending Dr: Heidy Marin M.D. Ordering Physician: Heidy Marin M.D. Date of Service: 04/11/25 Procedure(s): CA segmental UE or LE MARIXA Accession Number(s): [id number] cc: ELLEN CRABTREE ; Heidy Marin M.D. [facility] Test Date: 2025-04-11 Pat Name: ALISIA CORREA Department: Room: - Gender: Male Carpet Jack: : 1960 Requested By: 1894 Order Number: [id number] Reading MD: ISMAEL JC M.D. Interpretive Statements [...] JC Signed By: 04/11/25221304/11/252213 DD/ 1548 TD/TT: Interactive Designer: [facility] Radiology Study observation (narrative) [facility] SEGMENTAL BLOOD PRESSUREOrde red By: Radiologist Radiology on 04-11-2025 [facility] Work Phone: 36on 04-07-2025 36 Per pt's request felipe nt monitor order was faxed to hospital. Confirmed 04/07/25 at 9:24 [facility] 36 Order was faxed to melly eason. [facility] 36 Patient would like cardiac event monitor order to be faxed to [facility] fax#[phone]. Thank you This phone message was created by the Ambulatory float staff. If you need it support technician follow up regarding this patient, please make your appropriate clinic staff member aware. Thank you. [facility] 36on 04-05-2025 36 Vm is full, unable t o leave msg [facility] Telemedicineon 04-05-2025 Telemedicine [id number] Lina Correa 1960 M Date Provider Department Center 04/05/2025 CHERELLE MATTHEW [facility] Family History Problem Relation Age of Onset Asthma Mother Depression Mother Hypertension Mother Hypotension Mother Kidney disease Mother Diabetes type II Father Hypertension Father Cancer Brother Family Status - Relation Status Age at Mother Alive Father Alive Brother Alive Level of Service:37316 NM OFFICE/OUTPATIENT NEW MODERATE MDM 45 MINUTES (95) Reason for Visit and Comments: Telehealth Audio/video Visit [871] [facility] CT BRAIN WO CONTon 5 [address] BRAIN WO CONT CT BRAIN WO [...] Samano MD on 04/02/2025 5:17 PM Normal [facility] Ambulatory Visit Summaryon 0 03-31-2025 Ambulatory [...] LYN MACE PA-C Where: [facility] [address] [place] [address] [place] [address]- Thursday 10:00 AM EDT With: LYN MACE PA-C Where: [facility] [address] [place] [address] [place] [address]- Medications What How Much When Instructions Unchanged [...] for choosing us for your care. Normal [facility] SWALLOW MOTILITY FUNCTION on 03-29-2025 MD SWALLOW MOTILITY FUNCTION MD SWALLOW MOTILITY FUNCTION STUDY: Video fluoroscopic swallow [...] Norris DO on 03/29/2025 2:13 PM Normal [facility] Orders Onlyon 03-15-2025 Orders Only [id number] Lina Correa 1960 Date Provider Department Center 03/15/2025 [id number] MCCLELLAN [facility] UT HeartVAS No family history on file Normal [facility] Ambulatory Visit Summaryon 0 - Ambulatory Visit Summary Ambulatory Visit Summary ALISIA [...] LYN MACE PA-C Where: [facility] [place] [address] [place] [address] [place] [address]- Medications What How Much When Instructions Unchanged [...] for choosing us for your care. Normal [facility] US Abdominal Aorta for vicki denise 02-28-2025 [place] [address] Ultrasound Report Signed Patient: ALISIA CORREA MR#: [id number] : 1960 Acct:[id number] Age/Sex: 64 / M ADM Date: 02/28/25 Loc: US Attending Dr: Heidy Marin M.D. Ordering Physician: Heidy Marin M.D. Date of Service: 02/28/25 Procedure(s): US abdominal aortic aneurysm Accession Number(s): [id number] cc: ELLEN CRABTREE ; Heidy Marin M.D. [address] [address] Patient Name: ALISIA CORREA MRN: [id number] date: 1960 Sex: M Assigned Patient Location: US Current Patient Location: US Accession/Order Number: [id number] Exam Date: 02/28/2025 11:36 Report Date: 02/28/2025 [...] Garcia M.D. 02/28/2025 11:39 AM Dictation Location: [place] [address] Electronically authenticated by: [id number] Y Date: 02/28/2025 11:39 Dictated By: Geneva Garcia M.D. Signed By: 02/28/25 1142 DD/ 1139 TD/TT: Interactive Designer: [facility] Radiology, Radiologisatu long MD - 02/28/2025 [place] [address] Ultrasound Report Signed Patient: ALISIA CORREA MR#: [id number] : 1960 Acct:[id number] Age/Sex: 64 / M ADM Date: 02/28/25 Loc: US Attending Dr: Heidy Marin M.D. Ordering Physician: Heidy Marin M.D. Date of Service: 02/28/25 Procedure(s): US abdominal aortic aneurysm Accession Number(s): [id number] cc: ELLEN CRABTREE ; Heidy Marin M.D. The [address] [address] Patient Name: ALISIA CORREA MRN: [facility]:[id number] date: 1960 Sex: M Assigned Patient Location: US Current Patient Location: US Accession/Order Number: [id number] Exam Date: 02/28/2025 11:36 Report Date: 02/28/2025 [...] Garcia M.D. 02/28/2025 11:39 AM Dictation Location: [place] [address] Electronically authenticated by: [id number] Y Date: 02/28/2025 11:39 Dictated By: Geneva Garcia M.D. Signed By: 02/28/25 1142 DD/ 1139 TD/TT: Interactive Designer: [facility] Radiology Study observation (narrative) [facility] US Abdominal Aorta for vicki Guzmán By: Radiologist Radiology on 02-28-2025 [facility] Work Phone: Ambulatory Visit Summaryon 0 02-17-2025 [...] LYN MACE PA-C Where: [facility] [address] [place] [address]- Thursday 10:00 AM EDT With: LYN MACE PA-C Where: [facility] [address] [facility] [place] [address]- Thursday 10:00 AM EDT With: LYN MACE PA-C Where: [facility] [address] [facility] [place] [address]- Medications What How Much When Instructions Unchanged [...] for choosing us for your care. Normal [facility] CT abdomen pelvis wo conon 0 02-15-2025 CT abdomen pelvis wo [facility] [place] [address] [place] [address] CT Scan Report Signed Patient: Alisia Correa MR#: [id number] : 1960 Acct:[id number] Age/Sex: 64 / M ADM Date: 02/15/25 Loc: CT Room: Type: [facility] Attending Dr: Romel Leonardo MD Copies to: [...] Jr., D.O. 02/15/2025 3:42 PM Dictation Location: [facility]-- Transcribed By: PENELOPE 02/15/25 1542 Dictated By: Steven Shah Jr, DO 02/15/25 1538 Signed By: 02/15/25 1542 Normal [facility] Ambulatory Visit Summaryon 0 01-26-2025 Ambulatory Visit Summary Ambulatory Visit Summary ALISIA CORREA Kenny :1960 Visit Date:01/26/2025 Ambulatory Visit Instructions Your [...] you for choosing us for your care. [facility] Ambulatory Visit Summaryon 0 12-27-2024 Ambulatory Visit Summary Ambulatory Visit Summary ALISIA CORREA :1960 Visit Date:12/27/2024 Ambulatory Visit Instructions Your [...] LYN MACE PA-C Where: [facility] [address] [place] [address] [place] [address]- You Need to Schedule the Following Appointments Follow Up with LYN MACE PA-C, URL When: In 1 month Where: [address] [place] [id number] Medications What How Much When Instructions New sulfamethoxazole-trimetho prim (Bactrim 400 mg-80 mg Tab) 1 Tablets By Mouth Thursday Duration: 90 Days Refills: 1 Pickup at [facility] Unchanged acarbose (acarbose 25 mg oral tablet) [...] concerns Pharmacy Information [facility]: [address] [place], [place] [id number] [phone] Allergies Avelox (Wheal, Eruption, Dyspnea, Urticaria, Itching, [...] Testicular hyp (more content not included)... Normal [facility] Urology Office/Clinic Noteon 12-27-2024 Urology Office/Clinic Note [...] E&M of Est. Patient Moderate 30-39 Min 71073 2. Urine retention (R33.9: Retention of urine, unspecified) Chronic. SP changed. Return in 4 weeks for next change. [1] Ordered: Change cystostomy tube/simple 22028 Orders: sulfamethoxazole-trimetho prim, 1 tab(s), Oral, MonWedFri for 90 day(s), 39 tab(s), Refill(s) 1, [facility], 177, cm, 03/15/24 11:26:00 EDT, Height/Length Dosing, 95.3, kg, 03/15/24 11:26:00 EDT, Weight Dosing Follow-up With When Contact Information RODRI KHAN, LYN Crum, URL In 1 month [address] [place] [address] Additional Instructions: Patient Education Urinary [...] LYN MACE PA-C 11/28/2024 16:01 EST Normal [facility] Comment on above: Result Comment: Elec tronically Signed By: LYN MACE PA-C\.br\Date and Time Signed: 12/27/24 12:17 EDT Basophils Auto (Bld) [#/Vol] on 12-13-2024 Basophils (Bld) [#/Vol] Automated basophil count 0.0-0.1 [facility] Basophils/100 WBC Auto (Bld) on 12-13-2024 Basophils/100 WBC (Bld) Automated basophil % 0.2-2.0 [facility] Eosinophils/100 WBC Auto (Bl d)on 12-13-2024 Eosinophils/100 WBC (Bld) Automated eosinophil % 0.9-7.0 [facility] Erythrocyte distribution wid th Auto (RBC) [Ratio]on 12-13-2024 Erythrocyte distribution width (RBC) [Ratio] Erythrocyte distribution width [Ratio] by Automated count High 11.0-15.0 [facility] Estimated glomerular filtrat ion rate (GFR) non- Americanon 12-13-2024 GFR/1.73 sq M.predicted among non-blacks MDRD (S/P/Bld) [Vol rate/Area] Estimated glomerular filtration rate (GFR) non- >=60 mL/min/1.7 3m 2 [facility] Globulin Calc (S) [Mass/Vol] on 12-13-2024 Globulin (S) [Mass/Vol] Serum globulin measurement by calculation (mass/volume) [facility] Hematocrit Auto (Bld) [Volum e fraction]on 12-13-2024 Hematocrit (Bld) [Volume fraction] Hematocrit [Volume Fraction] of Blood by Automated count Low 42.0-54.0 [facility] Hemoglobin [Mass/volume] in Bloodon 12-13-2024 Hemoglobin (Bld) [Mass/Vol] Hemoglobin [Mass/volume] in Blood Low 14.0-18.0 [facility] INR in Platelet poor plasma by Coagulation assayon 12-13-2024 INR Coag (PPP) [Relative time] INR in Platelet poor plasma by Coagulation assay [facility] Comment on above: DESIRED INR:2.0-3.0 CONDITIONS NOT LISTED BELOW2.5-3.5 FOR PROSTHETIC HEART VALVE REPLACEMENT2.5-3.5 RECURRENT THROMBOSIS Laboratory - Chemistry and C hemistry - challengeon 12-13-2024 Albumin [Mass/Vol] 3.7 g/dL 3.4-5.0 [facility] ALP [Catalytic activity/Vol] 91 U/L 46-116 [facility] ALT [Catalytic activity/Vol] U/L Low 16-63 [facility] AST [Catalytic activity/Vol] 18 U/L 15-37 [facility] Bilirubin [Mass/Vol] 0.4 mg/dL 0.2-1.0 [facility] Calcium [Mass/Vol] 9.0 mg/dL 8.5-10.1 [facility] Chloride [Moles/Vol] 108 mmol/L High 98-107 [facility] CO2 [Moles/Vol] 27.7 mmol/L 21.0-32.0 [facility] Creatinine [Mass/Vol] 1.20 mg/dL 0.70-1.30 [facility] GFR/1.73 sq M.predicted MDRD (S/P/Bld) [Vol rate/Area] mL/min/{1.73_m2} >=60 mL/min/1.7 3m 2 [facility] Glucose [Mass/Vol] 91 mg/dL 74-106 [facility] Lactate [Moles/Vol] 1.2 mmol/L 0.4-2.0 [facility] Potassium [Moles/Vol] 3.7 mmol/L 3.5-5.1 [facility] Protein [Mass/Vol] 7.1 g/dL 6.4-8.2 [facility] Sodium [Moles/Vol] 143 mmol/L 136-145 [facility] Urea nitrogen [Mass/Vol] 24.0 mg/dL High 7.0-18.0 [facility] Urea nitrogen/Creatinine [Mass ratio] 20.0 mg/mg [facility] Laboratory - Hematology and Cell countson 12-13-2024 Immature granulocytes/100 WBC (Bld) 0.2 % 0.0-0.5 [facility] Laboratory - Microbiology an d Antimicrobial susceptibilityon 12-13-2024 SARS-CoV-2 (COVID-19) RNA KELLIE+probe Ql (Unsp spec) Negative NEGATIVE [facility] Comment on above: This test has not [...] Amorphous sediment LM Ql (Urine sed) FEW [facility] Mucus Ql (Urine sed) NONE SEEN NONE SEEN [facility] Leukocytes [#/volume] correc jacqueline for nucleated erythrocytes in Blood by Automated counon 12-13-2024 WBC corrected for nucl RBC Auto (Bld) [#/Vol] Leukocytes [#/volume] corrected for nucleated erythrocytes in Blood by Automated coun 4.0-11.0 [facility] Lymphocytes Auto (Bld) [#/Vo l]on 12-13-2024 Lymphocytes (Bld) [#/Vol] Lymphocytes [#/volume] in Blood by Automated count 1.2-3.8 [facility] Lymphocytes/100 WBC Auto (Bl d)on 12-13-2024 Lymphocytes/100 WBC (Bld) Lymphocytes/100 leukocytes in Blood by Automated count 20.5-60.0 [facility] MCH Auto (RBC) [Entitic mass ]on 12-13-2024 MCH (RBC) [Entitic mass] MCH [Entitic mass] by Automated count 25.9-34.0 [facility] MCHC Auto (RBC) [Mass/Vol]on 12-13-2024 MCHC (RBC) [Mass/Vol] MCHC [Mass/volume] by Automated count 29.9-35.2 [facility] MCV Auto (RBC) [Entitic vol] on 12-13-2024 MCV (RBC) [Entitic vol] MCV [Entitic volume] by Automated count High 80.0-94.0 [facility] Monocytes Auto (Bld) [#/Vol] on 12-13-2024 Monocytes (Bld) [#/Vol] Automated blood monocyte count 0.3-0.8 [facility] Monocytes/100 WBC Auto (Bld) on 12-13-2024 Monocytes/100 WBC (Bld) Automated monocyte % 1.7-12.0 [facility] Neutrophils Auto (Bld) [#/Vo l]on 12-13-2024 Neutrophils (Bld) [#/Vol] Neutrophils [#/volume] in Blood by Automated count 1.4-6.5 [facility] Neutrophils/100 WBC Auto (Bl d)on 12-13-2024 Neutrophils/100 WBC (Bld) Automated neutrophil % 43.0-75.0 [facility] No Panel Informationon 12-13 Urine Bacteria LARGE #/HPF Abnormal NONE SEEN [facility] Urine Culture Reflexed YES-[facility] Urine Other Casts NONE SEEN #/LPF NONE SEEN [facility] Urine Other Crystals Seen #/HPF Abnormal None Seen [facility] Urine RBC 2-5 #/HPF Abnormal 0-2 [facility] Urine Squamous Epithelial Cells RARE #/LPF NONE/RARE [facility] Urine WBC 5-10 #/HPF Abnormal NONE SEEN [facility] Eosinophils # (Auto) 0.2 10 3/uL 0.0-0.7 [facility] Immature Granulocyte # (Auto) 0.01 10 3/uL 0.00-0.03 [facility] Troponin I High Sensitivity 4.4 pg/mL 4.0-76.1 [facility] Comment on above: CUT-OFF POINTS HAVE BEEN [...] INFORMATION. Bedside Influenza Type A Antigen Negative [facility] Comment on above: Negative for Flu A p rotein antigen. Infection due to Flu Acannot be ruled out. Flu A antigen in the sample may bebelow the detection limit of the test. Bedside Influenza Type B Antigen Negative [facility] Comment on above: Negative for Flu B p rotein antigen. Infection due to Flu Bcannot be ruled out. Flu B antigen in the sample may bebelow the detection limit of the test. Platelet mean volume Auto (B ld) [Entitic vol]on 12-13-2024 Platelet mean volume (Bld) [Entitic vol] Platelet mean volume [Entitic volume] in Blood by Automated count 9.5-13.5 [facility] Platelets Auto (Bld) [#/Vol] on 12-13-2024 Platelets (Bld) [#/Vol] Platelets [#/volume] in Blood by Automated count Low 150-450 [facility] Prothrombin time (PT)on 11-20 PT Coag (PPP) [Time] Prothrombin time (PT) 9.0- 11.6 [facility] RBC Auto (Bld) [#/Vol]on RBC (Bld) [#/Vol] Erythrocytes [#/volu me] in Blood by Automated count Low 4.70-6.10 [facility] Serum or plasma albumin/glob ulin mass ratioon 12-13-2024 Albumin/Globulin [Mass ratio] Serum or plasma albumin/globulin mass ratio [facility] Serum or plasma anion gap de terminationon 12-13-2024 Anion gap [Moles/Vol] Serum or plasma an ion gap determination [facility] Urine Cultureon 12-13-2024 Bacteria identified Cx Nom (U) ORGANISM: Pseudomonas aeruginosa (O:PSEAER) Carbapenemase [Type] in Isolate by Kassandra [employer] Organism negative for carbapenemase (CRE) [place] Count >100,000 ORGANISM: Methicillin Resis Staph Aureus (O:MRSA) [place] Count >100,000 Aerobic SABI Charge (NMIC56) SUSCEPTIBILITY [...] RESISTANT TO ALL B-LACTAM DRUGS. PERFORMED BY: [facility] [address] [place] [address] PATHOLOGIST [employer] MIRANDA M.D. Normal [facility] Comment on above: Performed By: #### C UU #### [facility] [address] Urine cultureOrdered By: Nakia Cramer on 12-13-2024 Bacteria identified Cx Nom (U) Abnormal [facility] Bacteria identified Cx Nom (U) Abnormal [facility] C Urineon 12-02-2024 Bacteria identified Cx Nom (U) Microbiology PROCEDURE: Urine Culture [R1] SOURCE: U CleanCatch BODY SITE: COLLECTED DATE/TIME: 11/28/2024 16:22 EST RECEIVED DATE/TIME: 11/29/2024 18:01 EST START DATE/TIME: 11/29/2024 18:01 EST FREE TEXT SOURCE: RODRI KHAN, LYN MACE PA-C, LYN Crum [...] Locations R1: This test was performed at: [facility], [address] [place] [address], [id number]- , [place], Normal [facility] Comment on above: Performed By: #### 2 [id number] #### [facility] [address] [place] [address] A1C with Estimated Average G [facility] 11-28-2024 Glucose [Mass/Vol] 103 mg/dL Normal [facility] Comment on above: Order Comment: Reaso n for Exam Diabetes Result Comment: PERF ORMED BY: [place] [address] PATHOLOGIST [employer] MIRANDA M.D. Performed By: #### A 1C [facility] #### [address] HbA1c (Bld) [Mass fraction] 5.2 % Normal 4.3-5.6 [facility] Comment on above: Order Comment: Reaso n for Exam Diabetes Result Comment: Incr eased risk for diabetes: 5.7 - 6.4 diabetes: >6.4 glycemic control for adults with diabetes: <7.0 Performed By: #### A 1C [facility] #### [facility] [address] Alanine aminotransferase [En zymatic activity/volume] in Serum or PlasmaOrdered By: Ellen Crabtree on 11-28-2024 ALT [Catalytic activity/Vol] Alanine aminotransferase [Enzymatic activity/volume] in Serum or Plasma Low 7-52 [facility] Albumin [Mass/volume] in Ser um or Plasma by Bromocresol green (BCG) dye binding methoOrdered By: Ellen Crabtree on 11-28-2024 Albumin BCG dye [Mass/Vol] Albumin [Mass/volume] in Serum or Plasma by Bromocresol green (BCG) dye binding metho 3.5-5.7 [facility] Alkaline phosphatase [Enzyma tic activity/volume] in Serum or PlasmaOrdered By: Ellen Crabtree on 11-28-2024 ALP [Catalytic activity/Vol] Alkaline phosphatase [Enzymatic activity/volume] in Serum or Plasma 34-104 [facility] Aspartate aminotransferase [ Enzymatic activity/volume] in Serum or PlasmaOrdered By: Ellen Crabtree on 11-28-2024 AST [Catalytic activity/Vol] Aspartate aminotransferase [Enzymatic activity/volume] in Serum or Plasma 13-39 [facility] Basophils Auto (Bld) [#/Vol] Ordered By: Ellen Crabtree on 11-28-2024 Basophils (Bld) [#/Vol] Automated basophil count 0.0-0.2 [facility] Basophils/100 WBC Auto (Bld) Ordered By: Ellen Crabtree on 11-28-2024 Basophils/100 WBC (Bld) Automated basophil % . [facility] Bilirubin.total [Mass/volume ] in Serum or PlasmaOrdered By: Ellen Crabtree on 11-28-2024 Bilirubin [Mass/Vol] Bilirubin.total [Mass/volume] in Serum or Plasma 0.3-1.0 [facility] Blood estimated average gluc ose determination by estimation from glycated hemoglobinOrdered By: Ellen Crabtree on 11-28-2024 Average glucose Estimated from glycated hemoglobin (Bld) [Mass/Vol] Glucose mean value [Mass/volume] in Blood Estimated from glycated hemoglobin [facility] Calcium [Mass/volume] in Ser um or PlasmaOrdered By: Ellen Crabtree on 11-28-2024 Calcium [Mass/Vol] Calcium [Mass/volume ] in Serum or Plasma 8.6-10.3 [facility] Carbon dioxide, total [Moles /volume] in Serum or PlasmaOrdered By: Ellen Crabtree on 11-28-2024 CO2 [Moles/Vol] Carbon dioxide, tota l [Moles/volume] in Serum or Plasma 21.0-31.0 [facility] Chloride [Moles/volume] in S jordy or PlasmaOrdered By: Ellen Crabtree on 11-28-2024 Chloride [Moles/Vol] Chloride [Moles/vol ume] in Serum or Plasma High 98-107 [facility] Cholesterol [Mass/volume] in Serum or PlasmaOrdered By: Ellen Crabtree on 11-28-2024 Cholesterol [Mass/Vol] Cholesterol [Mass /volume] in Serum or Plasma 140-200 [facility] Comment on above: Chol less than 200 m g/dl low riskChol 201-239 mg/dl borderline riskChol 240 mg/dl and greater high risk Cholesterol in HDL [Mass/vol ume] in Serum or PlasmaOrdered By: Ellen Crabtree on 11-28-2024 Cholesterol in HDL [Mass/Vol] Serum or plasma high density lipoprotein (HDL) cholesterol measurement 23-92 [facility] Comment on above: HDL CHOL ATP-III CLA SSIFICATION Cardiovascular RiskHDL > or equal to 60 mg/dL LOWHDL < 40 mg/dL HIGH Cholesterol in LDL Calc [Mas s/Vol]Ordered By: Ellen Crabtree on 11-28-2024 Cholesterol in LDL [Mass/Vol] Cholesterol in LDL [Mass/volume] in Serum or Plasma by calculation 0-100 [facility] Comment on above: LDL ATP III CLASSIFI CATIONLDL less than 100 mg/dL OptimalLDL 100-129 mg/dL Near or above optimalLDL 130-159 mg/dL Borderline highLDL 160-189 mg/dL HighLDL greater than 189 mg/dL Very high Cholesterol in VLDL Calc [Ma ss/Vol]Ordered By: Ellen Crabtree on 11-28-2024 Cholesterol in VLDL [Mass/Vol] Cholesterol in VLDL [Mass/volume] in Serum or Plasma by calculation [facility] Complete Blood Count Auto Di ffon 11-28-2024 Basophils (Bld) [#/Vol] 0.0 10*3/uL Normal 0.0-0.2 [facility] Comment on above: Result Comment: PERF ORMED BY: [place] [address] PATHOLOGIST [employer] MIRANDA M.D. Performed By: #### P SAS, TSH3, CBC, LIPID, CMP #### [address] Basophils/100 WBC (Bld) 0.5 % Normal . [facility] Comment on above: Performed By: #### P SAS, TSH3, CBC, LIPID, CMP #### [address] Eosinophils (Bld) [#/Vol] 0.1 10*3/uL Normal 0.0-0.45 [facility] Comment on above: Performed By: #### P SAS, TSH3, CBC, LIPID, CMP #### [address] Eosinophils/100 WBC (Bld) 3.0 % Normal . [facility] Comment on above: Performed By: #### P SAS, TSH3, CBC, LIPID, CMP #### [address] Erythrocyte distribution width (RBC) [Ratio] 19.5 % High 12.0-14.8 [facility] Comment on above: Performed By: #### P SAS, TSH3, CBC, LIPID, CMP #### [address] Hematocrit (Bld) [Volume fraction] 39.1 % Normal 38.8-50.0 [facility] Comment on above: Performed By: #### P SAS, TSH3, CBC, LIPID, CMP #### [address] Hemoglobin (Bld) [Mass/Vol] 12.6 g/dL Low 13.0-17.0 [facility] Comment on above: Performed By: #### P SAS, TSH3, CBC, LIPID, CMP #### [address] Lymphocytes (Bld) [#/Vol] 1.4 10*3/uL Normal 1.00-4.8 [facility] Comment on above: Performed By: #### P SAS, TSH3, CBC, LIPID, CMP #### [address] Lymphocytes/100 WBC (Bld) 28.5 % Normal . [facility] Comment on above: Performed By: #### P SAS, TSH3, CBC, LIPID, CMP #### [address] MCH (RBC) [Entitic mass] 29.4 pg Normal 27.5-35.2 [facility] Comment on above: Performed By: #### P SAS, TSH3, CBC, LIPID, CMP #### [address] MCV (RBC) [Entitic vol] 91.3 fL Normal 83.5-101 [facility] Comment on above: Performed By: #### P SAS, TSH3, CBC, LIPID, CMP #### [address] Mean Corpuscular HGB Conc 32.2 g/dL Low 32.5-35.6 [facility] Comment on above: Performed By: #### P SAS, TSH3, CBC, LIPID, CMP #### [address] Monocytes (Bld) [#/Vol] 0.4 10*3/uL Normal 0.0-0.8 [facility] Comment on above: Performed By: #### P SAS, TSH3, CBC, LIPID, CMP #### [address] Monocytes/100 WBC (Bld) 7.3 % Normal . [facility] Comment on above: Performed By: #### P SAS, TSH3, CBC, LIPID, CMP #### [address] Neutrophils (Bld) [#/Vol] 3.0 10*3/uL Normal 1.8-7.7 [facility] Comment on above: Performed By: #### P SAS, TSH3, CBC, LIPID, CMP #### [address] Neutrophils/100 WBC (Bld) 60.7 % Normal . [facility] Comment on above: Performed By: #### P SAS, TSH3, CBC, LIPID, CMP #### [address] NRBC% 0.3 /100{WBC} Normal 0-0.5 [facility] Comment on above: Performed By: #### P SAS, TSH3, CBC, LIPID, CMP #### [address] Platelet mean volume (Bld) [Entitic vol] 11.7 fL High 6.6-10.1 [facility] Comment on above: Performed By: #### P SAS, TSH3, CBC, LIPID, CMP #### [address] Platelets (Bld) [#/Vol] 126 10*3/uL Low 150-450 [facility] Comment on above: Performed By: #### P SAS, TSH3, CBC, LIPID, CMP #### [address] RBC (Bld) [#/Vol] 4.28 10*6/uL Normal 3.90-5.60 [facility] Comment on above: Performed By: #### P SAS, TSH3, CBC, LIPID, CMP #### [address] WBC (Bld) [#/Vol] 4.9 10*3/uL Normal 4.1-10.5 [facility] Comment on above: Performed By: #### P SAS, TSH3, CBC, LIPID, CMP #### [facility] [address] [place] [address] Comprehensive Metabolic Pane lisy 11-28-2024 Albumin [Mass/Vol] 4.2 g/dL Normal 3.5-5.7 The [facility] Comment on above: Order Comment: Reaso n for Exam Hyperlipidemia Reason for Exam: Hyperlipidemia Performed By: #### P SAS, TSH3, CBC, LIPID, CMP #### [address] Albumin/Globulin [Mass ratio] 1.4 {ratio} Normal [facility] Comment on above: Order Comment: Reaso n for Exam Hyperlipidemia Reason for Exam: Hyperlipidemia Performed By: #### P SAS, TSH3, CBC, LIPID, CMP #### [address] ALP [Catalytic activity/Vol] 85 U/L Normal 34-104 [facility] Comment on above: Order Comment: Reaso n for Exam Hyperlipidemia Reason for Exam: Hyperlipidemia Performed By: #### P SAS, TSH3, CBC, LIPID, CMP #### [address] ALT [Catalytic activity/Vol] 3 U/L Low 7-52 [facility] Comment on above: Order Comment: Reaso n for Exam Hyperlipidemia Reason for Exam: Hyperlipidemia Performed By: #### P SAS, TSH3, CBC, LIPID, CMP #### [address] Anion gap [Moles/Vol] 8.8 mmol/L Normal 6.0-15.0 [facility] Comment on above: Order Comment: Reaso n for Exam Hyperlipidemia Reason for Exam: Hyperlipidemia Performed By: #### P SAS, TSH3, CBC, LIPID, CMP #### [address] AST [Catalytic activity/Vol] 17 U/L Normal 13-39 [facility] Comment on above: Order Comment: Reaso n for Exam Hyperlipidemia Reason for Exam: Hyperlipidemia Performed By: #### P SAS, TSH3, CBC, LIPID, CMP #### [facility] [address] [place] [address] [place] Bilirubin [Mass/Vol] 0.4 mg/dL Normal 0.3-1.0 [facility] Comment on above: Order Comment: Reaso n for Exam Hyperlipidemia Reason for Exam: Hyperlipidemia Performed By: #### P SAS, TSH3, CBC, LIPID, CMP #### [facility] [address] [place] [address] [place] Calcium [Mass/Vol] 9.9 mg/dL Normal 8.6-10.3 [facility] Comment on above: Order Comment: Reaso n for Exam Hyperlipidemia Reason for Exam: Hyperlipidemia Performed By: #### P SAS, TSH3, CBC, LIPID, CMP #### [facility] [address] [place] [address] [place] Chloride [Moles/Vol] 111 mmol/L High 98-107 [facility] Comment on above: Order Comment: Reaso n for Exam Hyperlipidemia Reason for Exam: Hyperlipidemia Performed By: #### P SAS, TSH3, CBC, LIPID, CMP #### [facility] [address] [place] [address] [place] CO2 [Moles/Vol] 27.9 mmol/L Normal 21.0-31.0 [facility] Comment on above: Order Comment: Reaso n for Exam Hyperlipidemia Reason for Exam: Hyperlipidemia Performed By: #### P SAS, TSH3, CBC, LIPID, CMP #### [facility] [address] [place] [id number] [place] Creatinine [Mass/Vol] 1.29 mg/dL Normal 0.70-1.30 [facility] Comment on above: Order Comment: Reaso n for Exam Hyperlipidemia Reason for Exam: Hyperlipidemia Performed By: #### P SAS, TSH3, CBC, LIPID, CMP #### [facility] [address] [place] [id number] [place] GFR/1.73 sq M.predicted MDRD (S/P/Bld) [Vol rate/Area] mL/min/{1.73_m2} Normal [facility] Comment on above: Order Comment: Reaso n for Exam Hyperlipidemia Reason for Exam: Hyperlipidemia Performed By: #### P SAS, TSH3, CBC, LIPID, CMP #### [facility] [address] [place] [address] [place] Globulin (S) [Mass/Vol] 2.9 g/dL Normal [facility] Comment on above: Order Comment: Reaso n for Exam Hyperlipidemia Reason for Exam: Hyperlipidemia Performed By: #### P SAS, TSH3, CBC, LIPID, CMP #### [facility] [address] [place] [address] [place] Glucose [Mass/Vol] 90 mg/dL Normal 70-100 [facility] Comment on above: Order Comment: Reaso n for Exam Hyperlipidemia Reason for Exam: Hyperlipidemia Result Comment: [facility] Glucose Reference Range is dependent on time and content of last meal. Glucose of more than 200 mg/dL in a nonstressed, ambulatory subject supports the diagnosis of Diabetes Mellitus. ADA recommended reference range Performed By: #### P SAS, TSH3, CBC, LIPID, CMP #### [facility] [address] [place] [address] [place] Potassium [Moles/Vol] 3.7 mmol/L Normal 3.5-5.1 [facility] Comment on above: Order Comment: Reaso n for Exam Hyperlipidemia Reason for Exam: Hyperlipidemia Performed By: #### P SAS, TSH3, CBC, LIPID, CMP #### [facility] [address] [place] [address] [place] Protein [Mass/Vol] 7.1 g/dL Normal 6.4-8.9 [facility] Comment on above: Order Comment: Reaso n for Exam Hyperlipidemia Reason for Exam: Hyperlipidemia Performed By: #### P SAS, TSH3, CBC, LIPID, CMP #### [facility] [address] [place] [id number] [place] Sodium [Moles/Vol] 144 mmol/L Normal 136-145 [facility] Comment on above: Order Comment: Reaso n for Exam Hyperlipidemia Reason for Exam: Hyperlipidemia Performed By: #### P SAS, TSH3, CBC, LIPID, CMP #### [facility] [address] [place] [id number] [place] Urea nitrogen [Mass/Vol] 24 mg/dL Normal 7-25 [facility] Comment on above: Order Comment: Reaso n for Exam Hyperlipidemia Reason for Exam: Hyperlipidemia Performed By: #### P SAS, TSH3, CBC, LIPID, CMP #### [facility] [address] Creatinine [Mass/volume] in Serum or PlasmaOrdered By: Ellen Crabtree on 11-28-2024 Creatinine [Mass/Vol] Creatinine [Mass/v olume] in Serum or Plasma 0.70-1.30 [facility] Eosinophils Auto (Bld) [#/Vo l]Ordered By: Ellen Crabtree on 11-28-2024 Eosinophils (Bld) [#/Vol] Automated eosinophil count 0.0-0.45 [facility] Eosinophils/100 WBC Auto (Bl d)Ordered By: Ellen Crabtree on 11-28-2024 Eosinophils/100 WBC (Bld) Automated eosinophil % . [facility] Erythrocyte distribution wid th Auto (RBC) [Ratio]Ordered By: Ellen Crabtree on 11-28-2024 Erythrocyte distribution width (RBC) [Ratio] Erythrocyte distribution width [Ratio] by Automated count High 12.0-14.8 [facility] Globulin Calc (S) [Mass/Vol] Ordered By: Ellen Crabtree on 11-28-2024 Globulin (S) [Mass/Vol] Serum globulin measurement by calculation (mass/volume) [facility] Glucose [Mass/volume] in Ser um or PlasmaOrdered By: Ellen Crabtree on 11-28-2024 Glucose [Mass/Vol] Glucose [Mass/volume ] in Serum or Plasma 70-100 [facility] Comment on above: ADA recommended refe rence rangeRandom Glucose Reference Range is dependent on time and content of last meal. Glucose of more than 200 mg/dL in a nonstressed, ambulatory subject supports the diagnosis of Diabetes Mellitus. Hematocrit Auto (Bld) [Volum e fraction]Ordered By: Ellen Crabtree on 11-28-2024 Hematocrit (Bld) [Volume fraction] Hematocrit [Volume Fraction] of Blood by Automated count 38.8-50.0 [facility] Hemoglobin A1c/Hemoglobin.to jesus in BloodOrdered By: Ellen Crabtree on 11-28-2024 HbA1c (Bld) [Mass fraction] Hemoglobin A1c percentage 4.3-5.6 [facility] Comment on above: Increased risk for d iabetes: 5.7 - 6.4diabetes: >6.4glycemic control for adults with diabetes: <7.0 Hemoglobin [Mass/volume] in BloodOrdered By: Ellen Crabtree on 11-28-2024 Hemoglobin (Bld) [Mass/Vol] Hemoglobin [Mass/volume] in Blood Low 13.0-17.0 [facility] Leukocytes [#/volume] correc jacqueline for nucleated erythrocytes in Blood by Automated counOrdered By: Ellen Crabtree on 11-28-2024 WBC corrected for nucl RBC Auto (Bld) [#/Vol] Leukocytes [#/volume] corrected for nucleated erythrocytes in Blood by Automated coun 4.1-10.5 [facility] Lipid Panelon 11-28-2024 Cholesterol [Mass/Vol] 152 mg/dL Normal 140-200 [facility] Comment on above: Order Comment: Reaso n for Exam Hyperlipidemia Reason for Exam: Hyperlipidemia Result Comment: Chol less than 200 mg/dl low risk Chol 201-239 mg/dl borderline risk Chol 240 mg/dl and greater high risk Performed By: #### P SAS, TSH3, CBC, LIPID, CMP #### [facility] [address] [place] [address] [place] Cholesterol in HDL [Mass/Vol] 40 mg/dL Normal 23-92 [facility] Comment on above: Order Comment: Reaso n for Exam Hyperlipidemia Reason for Exam: Hyperlipidemia Result Comment: HDL CHOL ATP-III CLASSIFICATION Cardiovascular Risk HDL > or equal to 60 mg/dL LOW HDL < 40 mg/dL HIGH Performed By: #### P SAS, TSH3, CBC, LIPID, CMP #### [facility] [address] [place] [address] [place] Cholesterol.total/Chol esterol in HDL [Mass ratio] 3.8 {ratio} Normal <5.0 [facility] Comment on above: Order Comment: Reaso n for Exam Hyperlipidemia Reason for Exam: Hyperlipidemia Performed By: #### P SAS, TSH3, CBC, LIPID, CMP #### [facility] [address] [place] [address] [place] LDL Cholesterol,Calculated 85 mg/dL Normal 0-100 [facility] Comment on above: Order Comment: Reaso n for Exam Hyperlipidemia Reason for Exam: Hyperlipidemia Result Comment: LDL ATP III CLASSIFICATION LDL less than 100 mg/dL Optimal LDL 100-129 mg/dL Near or above optimal LDL 130-159 mg/dL Borderline high LDL 160-189 mg/dL High LDL greater than 189 mg/dL Very high Performed By: #### P SAS, TSH3, CBC, LIPID, CMP #### [facility] [address] Triglyceride w/Reflex 134 mg/dL Normal 0-149 [facility] Comment on above: Order [...] P SAS, TSH3, CBC, LIPID, CMP #### [facility] [address] VLDL CHOLESTEROL 26 mg/dL Normal [facility] Comment on above: Order Comment: Reaso n for Exam Hyperlipidemia Reason for Exam: Hyperlipidemia Performed By: #### P SAS, TSH3, CBC, LIPID, CMP #### [facility] [address] [place] [id number] [facility] Lymphocytes Auto (Bld) [#/Vo l]Ordered By: Ellen Crabtree on 11-28-2024 Lymphocytes (Bld) [#/Vol] Lymphocytes [#/volume] in Blood by Automated count 1.00-4.8 [facility] Lymphocytes/100 WBC Auto (Bl d)Ordered By: Ellen Crabtree on 11-28-2024 Lymphocytes/100 WBC (Bld) Lymphocytes/100 leukocytes in Blood by Automated count . [facility] MCH Auto (RBC) [Entitic mass ]Ordered By: Ellen Crabtree on 11-28-2024 MCH (RBC) [Entitic mass] MCH [Entitic mass] by Automated count 27.5-35.2 [facility] MCHC Auto (RBC) [Mass/Vol]Or dered By: Ellen Crabtree on 11-28-2024 MCHC (RBC) [Mass/Vol] MCHC [Mass/volume] by Automated count Low 32.5-35.6 [facility] MCV Auto (RBC) [Entitic vol] Ordered By: Ellen Crabtree on 11-28-2024 MCV (RBC) [Entitic vol] MCV [Entitic volume] by Automated count 83.5-101 [facility] Monocytes Auto (Bld) [#/Vol] Ordered By: Ellen Crabtree on 11-28-2024 Monocytes (Bld) [#/Vol] Automated blood monocyte count 0.0-0.8 [facility] Monocytes/100 WBC Auto (Bld) Ordered By: Ellen Crabtree on 11-28-2024 Monocytes/100 WBC (Bld) Automated monocyte % . [facility] Neutrophils Auto (Bld) [#/Vo l]Ordered By: Ellen Crabtree on 11-28-2024 Neutrophils (Bld) [#/Vol] Neutrophils [#/volume] in Blood by Automated count 1.8-7.7 [facility] Neutrophils/100 WBC Auto (Bl d)Ordered By: Ellen Crabtree on 11-28-2024 Neutrophils/100 WBC (Bld) Automated neutrophil % . [facility] No Panel InformationOrdered By: Ellen Crabtree on 11-28-2024 Estimated GFR (CKD-EPI) > 60.0 mL/Min [facility] Creatinine Clearance (Chem N/A [facility] Nucleated erythrocytes [Pres ence] in Blood by Automated countOrdered By: Ellen Crabtree on 11-28-2024 Nucleated RBC Auto Ql (Bld) Nucleated erythrocytes [Presence] in Blood by Automated count 0-0.5 [facility] PSA Screen (Yearly Only)on 0 11-28-2024 PSA Screen (Yearly Only) 0.710 ng/mL Normal 0.000-4.00 0 [facility] Comment on above: Order Comment: Is pa tient <50 yrs? Medicare does not pay <50.: N What is the date of the last PSA Screen?: [id number] Is Medicare the insurance?: Y Did you verify eligibility (Dx Time) check TestViewGp: YES TO ALL Result Comment: Aura al tumor marker results determined by assays using different manufacturers or methods may not be comparable. [facility] dry room attendant and method: Trustlook[employer] DXI, CHEMILUMINESCENT IMMUNOASSAY. PERFORMED BY: [facility] [address] [place] [address] PATHOLOGIST [employer] MIRANDA M.D. Performed By: #### P SAS, TSH3, CBC, LIPID, CMP #### [facility] [address] Platelet mean volume Auto (B ld) [Entitic vol]Ordered By: Ellen Crabtree on 11-28-2024 Platelet mean volume (Bld) [Entitic vol] Platelet mean volume [Entitic volume] in Blood by Automated count High 6.6-10.1 [facility] Platelets Auto (Bld) [#/Vol] Ordered By: Ellen Crabtree on 11-28-2024 Platelets (Bld) [#/Vol] Platelets [#/volume] in Blood by Automated count Low 150-450 [facility] Potassium [Moles/volume] in Serum or PlasmaOrdered By: Ellen Crabtree on 11-28-2024 Potassium [Moles/Vol] Potassium [Moles/v olume] in Serum or Plasma 3.5-5.1 [facility] Prostate specific Ag [Mass/v olume] in Serum or PlasmaOrdered By: Ellen Crabtree on 11-28-2024 Prostate specific Ag [Mass/Vol] Prostate specific Ag [Mass/volume] in Serum or Plasma 0.000-4.00 0 [facility] Comment on above: Serial tumor marker results determined by assays using different manufacturers or methods may not be comparable.[facility] dry room attendant and method:[employer] DXI, CHEMILUMINESCENT IMMUNOASSAY. Protein [Mass/volume] in Ser um or PlasmaOrdered By: Ellen Crabtree on 11-28-2024 Protein [Mass/Vol] Protein [Mass/volume ] in Serum or Plasma 6.4-8.9 [facility] RBC Auto (Bld) [#/Vol]Ordere d By: Ellen Crabtree on 11-28-2024 RBC (Bld) [#/Vol] Erythrocytes [#/volu me] in Blood by Automated count 3.90-5.60 [facility] Serum or plasma albumin/glob ulin mass ratioOrdered By: Ellen Crabtree on 11-28-2024 Albumin/Globulin [Mass ratio] Serum or plasma albumin/globulin mass ratio [facility] Serum or plasma anion gap de terminationOrdered By: Ellen Crabtree on 11-28-2024 Anion gap [Moles/Vol] Serum or plasma an ion gap determination 6.0-15.0 [facility] Serum or plasma total choles terol/high density lipoprotein (HDL) cholesterol mass ratOrdered By: Ellen Crabtree on 11-28-2024 Cholesterol.total/Chol esterol in HDL [Mass ratio] Serum or plasma total cholesterol/high density lipoprotein (HDL) cholesterol mass rat <5.0 [facility] Sodium [Moles/volume] in Ser um or PlasmaOrdered By: Ellen Crabtree on 11-28-2024 Sodium [Moles/Vol] Sodium [Moles/volume ] in Serum or Plasma 136-145 [facility] Thyroid Stimulating Hormoneo n 11-28-2024 TSH Qn 1.06 m[IU]/L Normal 0.45-5.33 [facility] Comment on above: Order Comment: Reaso n for Exam Hyperlipidemia Reason for Exam: Hyperlipidemia Result Comment: PERF ORMED BY: [place] [address] PATHOLOGIST [employer] HE[employer] MIRANDA M.D. Performed By: #### P SAS, TSH3, CBC, LIPID, CMP #### [address] Thyrotropin [Units/volume] i n Serum or PlasmaOrdered By: Ellen Crabtree on 11-28-2024 TSH Qn Thyrotropin [Units/volume] in Serum or Plasma 0.45-5.33 [facility] Triglyceride [Mass/volume] i n Serum or PlasmaOrdered By: Ellen Crabtree on 11-28-2024 Triglyceride [Mass/Vol] Triglyceride [Mass/volume] in Serum or Plasma 0-149 [facility] Comment on above: TRIG ATP III CLASSIF ICATIONTRIG less than 150 mg/dL NormalTRIG 150-199 mg/dL Borderline highTRIG 200-500 mg/dL High TRIG greater than 500 mg/dL Very highStandard traceable to the Center for Disease Conrtrol and Prevention (CDC) test method. Urea nitrogen [Mass/volume] in Serum or PlasmaOrdered By: Ellen Crabtree on 11-28-2024 Urea nitrogen [Mass/Vol] Urea nitrogen [Mass/volume] in Serum or Plasma 05-12 [facility] Urology Office/Clinic Noteon 11-28-2024 Urology Office/Clinic Note [...] prior to abx. Ordered: Change cystostomy tube/simple 46209 E&M of Est. Patient Low 20-29 Min 55129 2. Urinary retention (R33.9: Retention of urine, unspecified) Chronic. SP changed. Return in 4 weeks for next change. Ordered: Change cystostomy tube/simple 57868 Follow-up With When Contact Information RODRI KHAN, LYN Crum, URL In 1 month [address] [place] [address] Additional Instructions: Patient Education Antibiotic [...] pneumococcal 23-valent vaccine 08/13/1995 Recorded Normal [facility] Comment on above: Result Comment: Elec tronically Signed By: LYN MACE PA-C\.br\Date and Time Signed: 11/28/24 16:28 EST WBC Auto (Bld) [#/Vol]Ordere d By: Ellen Crabtree on 11-28-2024 WBC (Bld) [#/Vol] Leukocytes [#/volume ] in Blood by Automated count 4.1-10.5 [facility] Ambulatory Visit Summaryon 0 10-28-2024 Ambulatory Visit Summary Ambulatory Visit Summary ALISIA CORREA Kenny :1960 Visit Date:10/28/2024 Ambulatory Visit Instructions Your [...] LYN MACE PA-C Where: [facility] [address] [place] [address]- Medications What How Much When Instructions Unchanged [...] for choosing us for your care. Normal [facility] [place] [facility] C Urineon 09-29-2024 Bacteria identified Cx Nom (U) Microbiology PROCEDURE: Urine Culture [R1] SOURCE: U Cath BODY SITE: COLLECTED DATE/TIME: 09/27/2024 12:20 EST RECEIVED DATE/TIME: 09/27/2024 18:26 EST START DATE/TIME: 09/27/2024 18:26 EST FREE TEXT SOURCE: suprapubic chronic zeb MACE PA-C, LYN MACE PA-C, LYN Crum FINAL REPORTS [...] Locations R1: This test was performed at: [facility], [address] [place] [address], [phone]- , , [facility] Comment on above: Performed By: #### 2 [id number] #### [facility] [place] [facility] [address] [place] [address] facial bones wo conon CT facial bones wo con [facility] [place] [address] [place] [address] CT Scan Report Signed Patient: Alisia Correa SR MR#: [id number] : 1960 Acct:[id number] Age/Sex: 63 / M ADM Date: 09/27/24 Loc: ER Room: Type: PRE ER Attending Dr: Copies to: Benitez Ortega DO Ordering Provider: Benitez Otrega DO Date of Service: 09/27/24 CT/CT cervical spine wo con: fall ([id number]) CT/CT facial bones wo con: fall ([id number]) CT/CT head/brain wo con: fall CT BRAIN/FACIAL [...] NO CERVICAL SPINE FRACTURE Impression dictated by: Steven Shah Jr., D.O.09/27/2024 5:11 PM Dictation Location: [facility] Transcribed By: PENELOPE 09/27/241710 Dictated By: Steven Shah Jr, DO 09/27/241699 Signed By: 09/27/241710 Normal [facility] Physician [facility] ECG 12 lead ECGon 09-27-2024 ECG 12 lead ECG [facility] [place] [address] [place] [address] Electrocardiograph Report Signed Patient: Alisia Correa SR MR#: [id number] : 1960 Acct:[id number] Age/Sex: 63 / M ADM Date: 09/27/24 Loc: ER Room: Type: [facility] ER Attending Dr: Ordering Provider: Benitez Ortega [...] sinus rhythm Confirmed by Benitez ORTEGA DO ([id number]) on 09/27/2024 8:17:17 PM Referred By: Electronically Signed By: Benitez ORTEGA DO Transcribed By: MUS Signed By Benitez Ortega DO 1 11/28/232016 Normal [facility] Physician [facility] Urology Office/Clinic Noteon 09-27-2024 Urology Office/Clinic Note [...] E&M of New Patient Low 30-44 Min 04229 2. Urinary retention (R33.9: Retention of urine, unspecified) [place] changed. Return in 4 weeks for next change. Ordered: Change cystostomy tube/simple 86690 E&M of New Patient Low 30-44 Min 14585 Follow-up With When Contact Information RODRI KHAN, LYN Crum, URL In 1 month [address] [place] [address] Additional Instructions: Patient Education Indwelling [...] pneumococcal 23-valent vaccine 08/13/1995 Recorded Normal [facility] Comment on above: Result Comment: [...] Locations R1: This test was performed at: [facility], [address] [place] [address], [id number] , , [facility] Comment on above: Performed By: #### 2 [id number] #### [facility] [place] [facility] [address] [place] [address] Ambulatory Visit Summaryon 0 06-09-2024 Ambulatory Visit [...] Follow-Up Appointments 2023 11:00 AM EDT With: Cristian WALLS, Madeline Gomez Where: [facility] [address] [place] [address]- Medications What How Much When Instructions Unchanged [...] for choosing us for your care. Normal [facility] Basophils Auto (Bld) [#/Vol] on 04-27-2024 Basophils (Bld) [#/Vol] 0.0 10 3/uL 0.0-0.1 [facility] Basophils/100 WBC Auto (Bld) on 04-27-2024 Basophils/100 WBC (Bld) 0.1 % Low 0.2-2.0 [facility] Eosinophils/100 WBC Auto (Bl d)on 04-27-2024 Eosinophils/100 WBC (Bld) 0.0 % Low 0.9-7.0 [facility] Erythrocyte distribution wid th Auto (RBC) [Ratio]on 04-27-2024 Erythrocyte distribution width (RBC) [Ratio] 15.6 % High 11.0-15.0 [facility] Estimated glomerular filtrat ion rate (GFR) non- Americanon 04-27-2024 GFR/1.73 sq M.predicted among non-blacks MDRD (S/P/Bld) [Vol rate/Area] 37 mL/min/{1.73_m2} Low >=60 [facility] Globulin Calc (S) [Mass/Vol] on 04-27-2024 Globulin (S) [Mass/Vol] 4.5 g/dL [facility] Hematocrit Auto (Bld) [Volum e fraction]on 04-27-2024 Hematocrit (Bld) [Volume fraction] 30.1 % Low 42.0-54.0 [facility] Hemoglobin [Mass/volume] in Bloodon 04-27-2024 Hemoglobin (Bld) [Mass/Vol] 9.6 g/dL Low 14.0-18.0 [facility] - Chemistry and C hemistry - challengeon 04-27-2024 Albumin [Mass/Vol] 2.1 g/dL Low 3.4-5.0 [facility] ALP [Catalytic activity/Vol] 121 U/L High 46-116 [facility] ALT [Catalytic activity/Vol] U/L Low 16-63 [facility] AST [Catalytic activity/Vol] 10 U/L Low 15-37 [facility] Bilirubin [Mass/Vol] 0.3 mg/dL 0.2-1.0 [facility] Calcium [Mass/Vol] 8.6 mg/dL 8.5-10.1 [facility] Chloride [Moles/Vol] 105 mmol/L 98-107 [facility] CO2 [Moles/Vol] 30.6 mmol/L 21.0-32.0 [facility] Creatinine [Mass/Vol] 1.83 mg/dL High 0.70-1.30 [facility] GFR/1.73 sq M.predicted MDRD (S/P/Bld) [Vol rate/Area] 45 mL/min/{1.73_m2} Low >=60 [facility] Glucose [Mass/Vol] 153 mg/dL High 74-106 [facility] Potassium [Moles/Vol] 4.2 mmol/L 3.5-5.1 [facility] Protein [Mass/Vol] 6.6 g/dL 6.4-8.2 [facility] Sodium [Moles/Vol] 139 mmol/L 136-145 [facility] Urea nitrogen [Mass/Vol] 41.0 mg/dL High 7.0-18.0 [facility] Urea nitrogen/Creatinine [Mass ratio] 22.4 mg/mg [facility] - Hematology and Cell countson 04-27-2024 Immature granulocytes/100 WBC (Bld) 0.4 % 0.0-0.5 [facility] Leukocytes [#/volume] correc jacqueline for nucleated erythrocytes in Blood by Automated counon 04-27-2024 WBC corrected for nucl RBC Auto (Bld) [#/Vol] 6.8 10 3/uL 4.0-11.0 [facility] Lymphocytes Auto (Bld) [#/Vo l]on 04-27-2024 Lymphocytes (Bld) [#/Vol] 0.8 10 3/uL Low 1.2-3.8 [facility] Lymphocytes/100 WBC Auto (Bl d)on 04-27-2024 Lymphocytes/100 WBC (Bld) 12.3 % Low 20.5-60.0 [facility] MCH Auto (RBC) [Entitic mass ]on 04-27-2024 MCH (RBC) [Entitic mass] 28.0 pg 25.9-34.0 [facility] MCHC Auto (RBC) [Mass/Vol]on 04-27-2024 MCHC (RBC) [Mass/Vol] 31.9 g/dL 29.9-35.2 [facility] MCV Auto (RBC) [Entitic vol] on 04-27-2024 MCV (RBC) [Entitic vol] 87.8 fL 80.0-94.0 [facility] Monocytes Auto (Bld) [#/Vol] on 04-27-2024 Monocytes (Bld) [#/Vol] 0.2 10 3/uL Low 0.3-0.8 [facility] Monocytes/100 WBC Auto (Bld) on 04-27-2024 Monocytes/100 WBC (Bld) 3.1 % 1.7-12.0 [facility] Neutrophils Auto (Bld) [#/Vo l]on 04-27-2024 Neutrophils (Bld) [#/Vol] 5.7 10 3/uL 1.4-6.5 [facility] Neutrophils/100 WBC Auto (Bl d)on 04-27-2024 Neutrophils/100 WBC (Bld) 84.1 % High 43.0-75.0 [facility] No Panel Informationon 04-27 Eosinophils # (Auto) 0.0 10 3/uL 0.0-0.7 [facility] Immature Granulocyte # (Auto) 0.03 10 3/uL 0.00-0.03 [facility] Platelet mean volume Auto (B ld) [Entitic vol]on 04-27-2024 Platelet mean volume (Bld) [Entitic vol] 12.9 fL 9.5-13.5 [facility] Platelets Auto (Bld) [#/Vol] on 04-27-2024 Platelets (Bld) [#/Vol] 173 10 3/uL 150-450 [facility] RBC Auto (Bld) [#/Vol]on RBC (Bld) [#/Vol] 3.43 10 6/uL Low 4.70-6.10 [facility] Serum or plasma albumin/glob ulin mass ratioon 04-27-2024 Albumin/Globulin [Mass ratio] 0.5 {ratio} [facility] Serum or plasma anion gap de terminationon 04-27-2024 Anion gap [Moles/Vol] 7.6 mmol/L [facility] Ammonium urate crystals dete ction in stone by infrared spectroscopyon 04-26-2024 Ammonium urate crystals Infrared spectroscopy Ql (Stone) TNP . [facility] Basophils Auto (Bld) [#/Vol] on 04-26-2024 Basophils (Bld) [#/Vol] 0.0 10 3/uL 0.0-0.1 [facility] Basophils/100 WBC Auto (Bld) on 04-26-2024 Basophils/100 WBC (Bld) 0.1 % Low 0.2-2.0 [facility] Calcium bilirubinate measure menton 04-26-2024 Calcium bilirubinate (Stone) [Mass fraction] TNP . [facility] Calcium carbonate (Stone) [M ass fraction]on 04-26-2024 Stone Calcium Carbonate TNP . [facility] Calcium hydrogen phosphate d ihydrate (Stone) [Mass fraction]on 04-26-2024 Stone Calcium Hydrogen Phosphate TNP . [facility] Calcium oxalate dihydrate cr ystals detection in stone by infrared spectroscopyon 04-26-2024 Calcium oxalate dihydrate crystals Infrared spectroscopy Ql (Stone) 60 % . [facility] Calcium oxalate monohydrate crystal detectionon 04-26-2024 Calcium oxalate monohydrate crystals Infrared spectroscopy Ql (Stone) 40 % . [facility] Calcium phosphate measuremen ton 04-26-2024 Calcium phosphate (Stone) [Mass fraction] TNP . [facility] Calculus analysis interpreta tion in stoneon 04-26-2024 Calculus analysis [Interp] TNP . [facility] Calculus analysis [Interp] Comment . [facility] Comment on above: Physician questions regarding Calculi Analysis contact[facility] at: [phone]. Calculus analysis with calcu silvia photography interpretation in stoneon 04-26-2024 Calculus analysis with calculus photography [Interp] Comment . [facility] Comment on above: Photograph will foll ow under a separate cover Cellular material measuremen t in stone by estimated (mass/mass)on 04-26-2024 Cellular material Est (Stone) [Mass/Mass] TNP . [facility] Cholesterol [Mass/volume] in Serum or Plasmaon 04-26-2024 Cholesterol [Mass/Vol] TNP . [facility] Composition of stoneon 04-26 Composition Nom (Stone) Comment . [facility] Comment on above: Percentage (Represen ts the % composition) Cystine measurementon 2023 Cystine (Unsp spec) [Moles/Vol] TNP . [facility] Determination of color of ca lculuson 04-26-2024 Color (Stone) Brown . [facility] Eosinophils/100 WBC Auto (Bl d)on 04-26-2024 Eosinophils/100 WBC (Bld) 1.0 % 0.9-7.0 [facility] Erythrocyte distribution wid th Auto (RBC) [Ratio]on 04-26-2024 Erythrocyte distribution width (RBC) [Ratio] 15.8 % High 11.0-15.0 [facility] Estimated glomerular filtrat ion rate (GFR) non- Americanon 04-26-2024 GFR/1.73 sq M.predicted among non-blacks MDRD (S/P/Bld) [Vol rate/Area] 28 mL/min/{1.73_m2} Low >=60 [facility] Globulin Calc (S) [Mass/Vol] on 04-26-2024 Globulin (S) [Mass/Vol] 4.1 g/dL [facility] Hematocrit Auto (Bld) [Volum e fraction]on 04-26-2024 Hematocrit (Bld) [Volume fraction] 30.3 % Low 42.0-54.0 [facility] Hemoglobin [Mass/volume] in Bloodon 04-26-2024 Hemoglobin (Bld) [Mass/Vol] 9.7 g/dL Low 14.0-18.0 [facility] Laboratory - Chemistry and C hemistry - challengeon 04-26-2024 Albumin [Mass/Vol] 1.9 g/dL Low 3.4-5.0 [facility] ALP [Catalytic activity/Vol] 122 U/L High 46-116 [facility] ALT [Catalytic activity/Vol] U/L Low 16-63 [facility] AST [Catalytic activity/Vol] 16 U/L 15-37 [facility] Bilirubin [Mass/Vol] 0.5 mg/dL 0.2-1.0 [facility] Calcium [Mass/Vol] 8.3 mg/dL Low 8.5-10.1 [facility] Chloride [Moles/Vol] 107 mmol/L 98-107 [facility] CO2 [Moles/Vol] 29.0 mmol/L 21.0-32.0 [facility] Creatinine [Mass/Vol] 2.32 mg/dL High 0.70-1.30 [facility] GFR/1.73 sq M.predicted MDRD (S/P/Bld) [Vol rate/Area] 34 mL/min/{1.73_m2} Low >=60 [facility] Glucose [Mass/Vol] 84 mg/dL 74-106 [facility] Magnesium [Mass/Vol] 2.0 mg/dL 1.8-2.4 [facility] Potassium [Moles/Vol] 3.7 mmol/L 3.5-5.1 [facility] Protein [Mass/Vol] 6.0 g/dL Low 6.4-8.2 [facility] Sodium [Moles/Vol] 142 mmol/L 136-145 [facility] Urea nitrogen [Mass/Vol] 55.0 mg/dL High 7.0-18.0 [facility] Urea nitrogen/Creatinine [Mass ratio] 23.7 mg/mg [facility] Laboratory - Hematology and Cell countson 04-26-2024 Immature granulocytes/100 WBC (Bld) 0.5 % 0.0-0.5 [facility] Leukocytes [#/volume] correc jacqueline for nucleated erythrocytes in Blood by Automated counon 04-26-2024 WBC corrected for nucl RBC Auto (Bld) [#/Vol] 13.9 10 3/uL High 4.0-11.0 [facility] Lymphocytes Auto (Bld) [#/Vo l]on 04-26-2024 Lymphocytes (Bld) [#/Vol] 1.3 10 3/uL 1.2-3.8 [facility] Lymphocytes/100 WBC Auto (Bl d)on 04-26-2024 Lymphocytes/100 WBC (Bld) 9.7 % Low 20.5-60.0 [facility] MCH Auto (RBC) [Entitic mass ]on 04-26-2024 MCH (RBC) [Entitic mass] 28.1 pg 25.9-34.0 [facility] MCHC Auto (RBC) [Mass/Vol]on 04-26-2024 MCHC (RBC) [Mass/Vol] 32.0 g/dL 29.9-35.2 [facility] MCV Auto (RBC) [Entitic vol] on 04-26-2024 MCV (RBC) [Entitic vol] 87.8 fL 80.0-94.0 [facility] Measurement of proportion of calculus composed of dried blood (mass/mass)on 04-26-2024 Blood.dried (Stone) [Mass fraction] TNP . [facility] Monocytes Auto (Bld) [#/Vol] on 04-26-2024 Monocytes (Bld) [#/Vol] 0.7 10 3/uL 0.3-0.8 [facility] Monocytes/100 WBC Auto (Bld) on 04-26-2024 Monocytes/100 WBC (Bld) 5.2 % 1.7-12.0 [facility] Neutrophils Auto (Bld) [#/Vo l]on 04-26-2024 Neutrophils (Bld) [#/Vol] 11.6 10 3/uL High 1.4-6.5 [facility] Neutrophils/100 WBC Auto (Bl d)on 04-26-2024 Neutrophils/100 WBC (Bld) 83.5 % High 43.0-75.0 [facility] Newberyite crystals detectio n in stone by infrared spectroscopyon 04-26-2024 Newberyite crystals Infrared spectroscopy Ql (Stone) TNP . [facility] No Panel Informationon 04-26 Stone 2,8 Dihydroxyadenine TNP . [facility] Stone Analysis Disclaimer Comment . [facility] Comment on above: Calculi report will follow via computer, mail or courierdelivery. This test was devlucinao starla and its performance characteristicsdetermined by [employer]. It has not been cleared or approvedby the Food and Drug Administration.Performed at: [facility] [id number] Director: Diamond Phillips PhD, Phone: [phone] Stone Bilirubinate TNP . [facility] Stone Calcium Palmitate TNP . [facility] Stone Calcium Stearate TNP . [facility] Stone Drug or Metabolite TNP . [facility] Stone Other Constituent TNP . [facility] Stone Xanthine TNP . [facility] Eosinophils # (Auto) 0.1 10 3/uL 0.0-0.7 [facility] Immature Granulocyte # (Auto) 0.07 10 3/uL High 0.00-0.03 [facility] Platelet mean volume Auto (B ld) [Entitic vol]on 04-26-2024 Platelet mean volume (Bld) [Entitic vol] 12.1 fL 9.5-13.5 [facility] Platelets Auto (Bld) [#/Vol] on 04-26-2024 Platelets (Bld) [#/Vol] 140 10 3/uL Low 150-450 [facility] RBC Auto (Bld) [#/Vol]on RBC (Bld) [#/Vol] 3.45 10 6/uL Low 4.70-6.10 [facility] Serum or plasma albumin/glob ulin mass ratioon 04-26-2024 Albumin/Globulin [Mass ratio] 0.5 {ratio} [facility] Serum or plasma anion gap de terminationon 04-26-2024 Anion gap [Moles/Vol] 9.7 mmol/L [facility] Size [Entitic volume] of Sto neon 04-26-2024 Size (Stone) [Entitic vol] 2x2 mm . [facility] Comment on above: Multiple pieces rece ived. Dimensions of the largest piecereported. Sodium urate crystals detect ion in stone by infrared spectroscopyon 04-26-2024 Sodium urate crystals Infrared spectroscopy Ql (Stone) TNP . [facility] Specimen source subject [Typ e]on 04-26-2024 Specimen source subject Nom Comment . [facility] Comment on above: Right Ureter Triamterene measurement in c alculuson 04-26-2024 Triamterene (Stone) [Mass fraction] TNP . [facility] Triple phosphate/Total in St oneon 04-26-2024 Triple phosphate (Stone) [Mass fraction] TNP . [facility] Uric acid dihydrate crystals detection in stone by infrared spectroscopyon 04-26-2024 Urate dihydrate crystals Infrared spectroscopy Ql (Stone) TNP . [facility] Basophils Auto (Bld) [#/Vol] on 04-25-2024 Basophils (Bld) [#/Vol] 0.0 10 3/uL 0.0-0.1 [facility] Basophils/100 WBC Auto (Bld) on 04-25-2024 Basophils/100 WBC (Bld) 0.1 % Low 0.2-2.0 [facility] Eosinophils/100 WBC Auto (Bl d)on 04-25-2024 Eosinophils/100 WBC (Bld) 1.3 % 0.9-7.0 [facility] Erythrocyte distribution wid th Auto (RBC) [Ratio]on 04-25-2024 Erythrocyte distribution width (RBC) [Ratio] 14.8 % 11.0-15.0 [facility] Estimated glomerular filtrat ion rate (GFR) non- Americanon 04-25-2024 GFR/1.73 sq M.predicted among non-blacks MDRD (S/P/Bld) [Vol rate/Area] 32 mL/min/{1.73_m2} Low >=60 [facility] Globulin Calc (S) [Mass/Vol] on 04-25-2024 Globulin (S) [Mass/Vol] 3.5 g/dL [facility] Hematocrit Auto (Bld) [Volum e fraction]on 04-25-2024 Hematocrit (Bld) [Volume fraction] 22.3 % Low 42.0-54.0 [facility] Comment on above: RESULTS CALLED TO Philip JerryRN)@BY KEREN Monroy at 0514 Hemoglobin [Mass/volume] in Bloodon 04-25-2024 Hemoglobin (Bld) [Mass/Vol] 7.0 g/dL Low 14.0-18.0 [facility] Laboratory - Chemistry and C hemistry - challengeon 04-25-2024 Albumin [Mass/Vol] 1.7 g/dL Low 3.4-5.0 [facility] ALP [Catalytic activity/Vol] 95 U/L 46-116 [facility] ALT [Catalytic activity/Vol] U/L Low 16-63 [facility] AST [Catalytic activity/Vol] 14 U/L Low 15-37 [facility] Bilirubin [Mass/Vol] 0.4 mg/dL 0.2-1.0 [facility] Calcium [Mass/Vol] 8.0 mg/dL Low 8.5-10.1 [facility] Chloride [Moles/Vol] 111 mmol/L High 98-107 [facility] CO2 [Moles/Vol] 24.2 mmol/L 21.0-32.0 [facility] Creatinine [Mass/Vol] 2.09 mg/dL High 0.70-1.30 [facility] GFR/1.73 sq M.predicted MDRD (S/P/Bld) [Vol rate/Area] 39 mL/min/{1.73_m2} Low >=60 [facility] Glucose [Mass/Vol] 74 mg/dL 74-106 [facility] Potassium [Moles/Vol] 3.9 mmol/L 3.5-5.1 [facility] Protein [Mass/Vol] 5.2 g/dL Low 6.4-8.2 [facility] Sodium [Moles/Vol] 142 mmol/L 136-145 [facility] Urea nitrogen [Mass/Vol] 60.0 mg/dL High 7.0-18.0 [facility] Urea nitrogen/Creatinine [Mass ratio] 28.7 mg/mg [facility] Laboratory - Hematology and Cell countson 04-25-2024 Immature granulocytes/100 WBC (Bld) 0.4 % 0.0-0.5 [facility] Leukocytes [#/volume] correc jacqueline for nucleated erythrocytes in Blood by Automated counon 04-25-2024 WBC corrected for nucl RBC Auto (Bld) [#/Vol] 13.8 10 3/uL High 4.0-11.0 [facility] Lymphocytes Auto (Bld) [#/Vo l]on 04-25-2024 Lymphocytes (Bld) [#/Vol] 1.7 10 3/uL 1.2-3.8 [facility] Lymphocytes/100 WBC Auto (Bl d)on 04-25-2024 Lymphocytes/100 WBC (Bld) 12.3 % Low 20.5-60.0 [facility] MCH Auto (RBC) [Entitic mass ]on 04-25-2024 MCH (RBC) [Entitic mass] 28.0 pg 25.9-34.0 [facility] MCHC Auto (RBC) [Mass/Vol]on 04-25-2024 MCHC (RBC) [Mass/Vol] 31.4 g/dL 29.9-35.2 [facility] MCV Auto (RBC) [Entitic vol] on 04-25-2024 MCV (RBC) [Entitic vol] 89.2 fL 80.0-94.0 [facility] Monocytes Auto (Bld) [#/Vol] on 04-25-2024 Monocytes (Bld) [#/Vol] 0.8 10 3/uL 0.3-0.8 [facility] Monocytes/100 WBC Auto (Bld) on 04-25-2024 Monocytes/100 WBC (Bld) 6.0 % 1.7-12.0 [facility] Neutrophils Auto (Bld) [#/Vo l]on 04-25-2024 Neutrophils (Bld) [#/Vol] 11.0 10 3/uL High 1.4-6.5 [facility] Neutrophils/100 WBC Auto (Bl d)on 04-25-2024 Neutrophils/100 WBC (Bld) 79.9 % High 43.0-75.0 [facility] No Panel Informationon 04-25 Eosinophils # (Auto) 0.2 10 3/uL 0.0-0.7 [facility] Immature Granulocyte # (Auto) 0.06 10 3/uL High 0.00-0.03 [facility] Platelet mean volume Auto (B ld) [Entitic vol]on 04-25-2024 Platelet mean volume (Bld) [Entitic vol] 12.9 fL 9.5-13.5 [facility] Platelets Auto (Bld) [#/Vol] on 04-25-2024 Platelets (Bld) [#/Vol] 129 10 3/uL Low 150-450 [facility] RBC Auto (Bld) [#/Vol]on RBC (Bld) [#/Vol] 2.50 10 6/uL Low 4.70-6.10 [facility] Serum or plasma albumin/glob ulin mass ratioon 04-25-2024 Albumin/Globulin [Mass ratio] 0.5 {ratio} [facility] Serum or plasma anion gap de terminationon 04-25-2024 Anion gap [Moles/Vol] 10.7 [facility]/L [facility] Bas[facility]/100 WBC Manual cnt (Bld)on 04-24-2024 Basophils/100 WBC (Bld) 0.0 % Low 0.2-2.0 [facility] Eosinophils/100 WBC Manual c nt (Bld)on 04-24-2024 Eosinophils/100 WBC (Bld) 0.0 % Low 0.9-7.0 [facility] Erythrocyte distribution wid th Auto (RBC) [Ratio]on 04-24-2024 Erythrocyte distribution width (RBC) [Ratio] 14.6 % 11.0-15.0 [facility] Estimated glomerular filtrat ion rate (GFR) non- Americanon 04-24-2024 GFR/1.73 sq M.predicted among non-blacks MDRD (S/P/Bld) [Vol rate/Area] 33 mL/min/{1.73_m2} Low >=60 [facility] Globulin Calc (S) [Mass/Vol] on 04-24-2024 Globulin (S) [Mass/Vol] 3.7 g/dL [facility] Hematocrit Auto (Bld) [Volum e fraction]on 04-24-2024 Hematocrit (Bld) [Volume fraction] 25.9 % Low 42.0-54.0 [facility] Hemoglobin [Mass/volume] in Bloodon 04-24-2024 Hemoglobin (Bld) [Mass/Vol] 8.2 g/dL Low 14.0-18.0 [facility] Laboratory - Chemistry and C hemistry - challengeon 04-24-2024 Lactate [Moles/Vol] 1.9 mmol/L 0.4-2.0 [facility] Albumin [Mass/Vol] 1.8 g/dL Low 3.4-5.0 [facility] ALP [Catalytic activity/Vol] 95 U/L 46-116 [facility] ALT [Catalytic activity/Vol] U/L Low 16-63 [facility] AST [Catalytic activity/Vol] 10 U/L Low 15-37 [facility] Bilirubin [Mass/Vol] 0.7 mg/dL 0.2-1.0 [facility] Calcium [Mass/Vol] 7.9 mg/dL Low 8.5-10.1 [facility] Chloride [Moles/Vol] 111 mmol/L High 98-107 [facility] CO2 [Moles/Vol] 23.5 mmol/L 21.0-32.0 [facility] Creatinine [Mass/Vol] 2.02 mg/dL High 0.70-1.30 [facility] GFR/1.73 sq M.predicted MDRD (S/P/Bld) [Vol rate/Area] 40 mL/min/{1.73_m2} Low >=60 [facility] Glucose [Mass/Vol] 97 mg/dL 74-106 [facility] Potassium [Moles/Vol] 3.8 mmol/L 3.5-5.1 [facility] Protein [Mass/Vol] 5.5 g/dL Low 6.4-8.2 [facility] Sodium [Moles/Vol] 142 mmol/L 136-145 [facility] Urea nitrogen [Mass/Vol] 59.0 mg/dL High 7.0-18.0 [facility] Urea nitrogen/Creatinine [Mass ratio] 29.2 mg/mg [facility] Laboratory - Hematology and Cell countson 04-24-2024 Band form neutrophils/100 WBC (Bld) 5.0 % 0-5 [facility] Lymphocytes/100 WBC (Bld) 1.0 % Low 20.5-60.0 [facility] Monocytes/100 WBC (Bld) 1.0 % Low 1.7-12.0 [facility] Leukocytes [#/volume] correc jacqueline for nucleated erythrocytes in Blood by Automated counon 04-24-2024 WBC corrected for nucl RBC Auto (Bld) [#/Vol] 37.6 10 3/uL High 4.0-11.0 [facility] Comment on above: RESULTS CALLED TO NITHYA BENTON RN MCH Auto (RBC) [Entitic mass ]on 04-24-2024 MCH (RBC) [Entitic mass] 29.0 pg 25.9-34.0 [facility] MCHC Auto (RBC) [Mass/Vol]on 04-24-2024 MCHC (RBC) [Mass/Vol] 31.7 g/dL 29.9-35.2 [facility] MCV Auto (RBC) [Entitic vol] on 04-24-2024 MCV (RBC) [Entitic vol] 91.5 fL 80.0-94.0 [facility] No Panel Informationon 04-24 Absolute Basophils (Manual) 0.00 10 3/uL 0.00-0.10 [facility] Band Neutrophils # (Manual) 1.9 10 3/uL High 0.0-0.3 [facility] Eosinophils # (Manual) 0.00 10 3/uL 0.00-0.70 [facility] Lymphocytes # (Manual) 0.37 10 3/uL Low 1.20-3.80 [facility] Monocytes # (Manual) 0.37 10 3/uL 0.30-0.80 [facility] Segmented Neutrophils # (Manual) 34.96 10 3/uL High 1.4-6.5 [facility] Platelet mean volume Auto (B ld) [Entitic vol]on 04-24-2024 Platelet mean volume (Bld) [Entitic vol] 12.8 fL 9.5-13.5 [facility] Platelets Auto (Bld) [#/Vol] on 04-24-2024 Platelets (Bld) [#/Vol] 195 10 3/uL 150-450 [facility] RBC Auto (Bld) [#/Vol]on RBC (Bld) [#/Vol] 2.83 10 6/uL Low 4.70-6.10 [facility] Segmented neutrophils/100 WB C Manual cnt (Bld)on 04-24-2024 Segmented neutrophils/100 WBC (Bld) 93.0 % [facility] Serum or plasma albumin/glob ulin mass ratioon 04-24-2024 Albumin/Globulin [Mass ratio] 0.5 {ratio} [facility] Serum or plasma anion gap de terminationon 04-24-2024 Anion gap [Moles/Vol] 11.3 mmol/L [facility] Serum procalcitonin measurem enton 04-24-2024 Procalcitonin [Mass/Vol] 66.17 ng/mL High 0.00-0.50 [facility] Basophils Auto (Bld) [#/Vol] on 04-23-2024 Basophils (Bld) [#/Vol] 0.0 10 3/uL 0.0-0.1 [facility] Basophils/100 WBC Auto (Bld) on 04-23-2024 Basophils/100 WBC (Bld) 0.2 % 0.2-2.0 [facility] Eosinophils/100 WBC Auto (Bl d)on 04-23-2024 Eosinophils/100 WBC (Bld) 0.3 % Low 0.9-7.0 [facility] Erythrocyte distribution wid th Auto (RBC) [Ratio]on 04-23-2024 Erythrocyte distribution width (RBC) [Ratio] 14.5 % 11.0-15.0 [facility] Estimated glomerular filtrat ion rate (GFR) non- Americanon 04-23-2024 GFR/1.73 sq M.predicted among non-blacks MDRD (S/P/Bld) [Vol rate/Area] 49 mL/min/{1.73_m2} Low >=60 [facility] Fibrin D-dimer [Presence] in Platelet poor plasma by Latex agglutinationon 04-23-2024 Fibrin D-dimer LA Ql (PPP) 1.33 mg/L FEU High <=0.59 [facility] Comment on above: RESULTS CALLED TO DR [...] on 04-23-2024 Globulin (S) [Mass/Vol] 4.6 g/dL [facility] Hematocrit Auto (Bld) [Volum e fraction]on 04-23-2024 Hematocrit (Bld) [Volume fraction] 36.3 % Low 42.0-54.0 [facility] Hemoglobin [Mass/volume] in Bloodon 04-23-2024 Hemoglobin (Bld) [Mass/Vol] 11.1 g/dL Low 14.0-18.0 [facility] INR in Platelet poor plasma by Coagulation assayon 04-23-2024 INR Coag (PPP) [Relative time] 1.09 {INR} [facility] Comment on above: DESIRED INR:2.0-3.0 CONDITIONS NOT LISTED BELOW2.5-3.5 FOR PROSTHETIC HEART VALVE REPLACEMENT2.5-3.5 RECURRENT THROMBOSIS Laboratory - Chemistry and C hemistry - challengeon 04-23-2024 HCO3 (Bld) [Moles/Vol] 19.4 mmol/L Low 22.0-26.0 [facility] Lactate [Moles/Vol] 1.5 mmol/L 0.4-2.0 [facility] Bilirubin Ql (U) Negative NEGATIVE [facility] Glucose (U) [Mass/Vol] Negative NEGATIVE [facility] Ketones Ql (U) Negative NEGATIVE [facility] pH (U) 7.5 [pH] 5.0-9.0 [facility] Specific gravity (U) [Rel density] 1.020 1.005-1.02 5 [facility] Urobilinogen Qn (U) 0.2 {Phillip'U}/dL 0.2-1.0 [facility] Albumin [Mass/Vol] 2.6 g/dL Low 3.4-5.0 [facility] ALP [Catalytic activity/Vol] 119 U/L High 46-116 [facility] ALT [Catalytic activity/Vol] 9 U/L Low 16-63 [facility] AST [Catalytic activity/Vol] 15 U/L 15-37 [facility] Bilirubin [Mass/Vol] 0.8 mg/dL 0.2-1.0 [facility] Calcium [Mass/Vol] 8.8 mg/dL 8.5-10.1 [facility] Chloride [Moles/Vol] 108 mmol/L High 98-107 [facility] CO2 [Moles/Vol] 23.3 mmol/L 21.0-32.0 [facility] Creatinine [Mass/Vol] 1.45 mg/dL High 0.70-1.30 [facility] GFR/1.73 sq M.predicted MDRD (S/P/Bld) [Vol rate/Area] 59 mL/min/{1.73_m2} Low >=60 [facility] Glucose [Mass/Vol] 131 mg/dL High 74-106 [facility] Natriuretic peptide B (Bld) [Mass/Vol] 1488.0 pg/mL High <=900.0 [facility] Comment on above: RESULTS CALLED TO DR Alejandro RCAMER Potassium [Moles/Vol] 3.8 mmol/L 3.5-5.1 [facility] Protein [Mass/Vol] 7.2 g/dL 6.4-8.2 [facility] Sodium [Moles/Vol] 145 mmol/L 136-145 [facility] Urea nitrogen [Mass/Vol] 47.0 mg/dL High 7.0-18.0 [facility] Urea nitrogen/Creatinine [Mass ratio] 32.4 mg/mg [facility] Laboratory - Hematology and Cell countson 04-23-2024 Immature granulocytes/100 WBC (Bld) 1.0 % High 0.0-0.5 [facility] Laboratory - Microbiology an d Antimicrobial susceptibilityon 04-23-2024 S. agalactiae Org specific cx Ql (Vag fld) Not detected NOT DETECTE [facility] SARS-CoV-2 (COVID-19) RNA KELLIE+probe Ql (Unsp spec) Negative NEGATIVE [facility] Comment on above: This test has not [...] on 04-23-2024 Bacteria identified Cx Nom (U) [facility] Laboratory - Specimen inform ationon 04-23-2024 Appearance (U) CLOUDY Abnormal CLEAR [facility] Color (U) YELLOW YELLOW [facility] Laboratory - Urinalysison Leukocyte esterase Test strip Ql (U) MODERATE Abnormal NEGATIVE [facility] Mucus Ql (Urine sed) TRACE Abnormal NONE SEEN [facility] Nitrite Ql (U) Positive Abnormal NEGATIVE [facility] Protein Ql (U) 100 mg/dL Abnormal NEG/TRACE [facility] Leukocytes [#/volume] correc jacqueline for nucleated erythrocytes in Blood by Automated counon 04-23-2024 WBC corrected for nucl RBC Auto (Bld) [#/Vol] 15.8 10 3/uL High 4.0-11.0 [facility] Lymphocytes Auto (Bld) [#/Vo l]on 04-23-2024 Lymphocytes (Bld) [#/Vol] 2.4 10 3/uL 1.2-3.8 [facility] Lymphocytes/100 WBC Auto (Bl d)on 04-23-2024 Lymphocytes/100 WBC (Bld) 15.3 % Low 20.5-60.0 [facility] MCH Auto (RBC) [Entitic mass ]on 04-23-2024 MCH (RBC) [Entitic mass] 28.4 pg 25.9-34.0 [facility] MCHC Auto (RBC) [Mass/Vol]on 04-23-2024 MCHC (RBC) [Mass/Vol] 30.6 g/dL 29.9-35.2 [facility] MCV Auto (RBC) [Entitic vol] on 04-23-2024 MCV (RBC) [Entitic vol] 92.8 fL 80.0-94.0 [facility] Monocytes Auto (Bld) [#/Vol] on 04-23-2024 Monocytes (Bld) [#/Vol] 0.1 10 3/uL Low 0.3-0.8 [facility] Monocytes/100 WBC Auto (Bld) on 04-23-2024 Monocytes/100 WBC (Bld) 0.7 % Low 1.7-12.0 [facility] [facility] Neutrophils Auto (Bld) [#/Vo l]on 04-23-2024 Neutrophils (Bld) [#/Vol] 13.0 10 3/uL High 1.4-6.5 [facility] Neutrophils/100 WBC Auto (Bl d)on 04-23-2024 Neutrophils/100 WBC (Bld) 82.5 % High 43.0-75.0 [facility] No Panel Informationon 04-23 Raf Test Positive POSITIVE [facility] Arterial Blood Base Excess -6.3 mmol/L Low <2.0-2.0 [facility] Arterial Blood Oxygen Saturation >100.0 % [facility] Arterial Blood Partial Pressure CO2 35.7 mm[Hg] 35.0-45.0 [facility] Arterial Blood Partial Pressure O2 307.0 mm[Hg] High 80.0-100.0 [facility] Arterial Blood pH 7.344 Low 7.350-7.45 0 [facility] Blood Gas Liter Flow 15 [facility] Blood Gas Sample Site RR [facility] Oxygen Delivery Device NRBM [facility] A.calcoaceticus-china samantha cmplx PCR Not detected NOT DETECTE [facility] Bacteroides fragilis (PCR) Not detected NOT DETECTE [facility] Blood Culture Source Blood [facility] Tiffany albicans (PCR) Not detected NOT DETECTE [facility] Tiffany auris (PCR) Not detected NOT DETECTE [facility] Tiffany glabrata (PCR) Not detected NOT DETECTE [facility] Tiffany krusei (PCR) Not detected NOT DETECTE [facility] Tiffany parapsilosis (PCR) Not detected NOT DETECTE [facility] Tiffany tropicalis (PCR) Not detected NOT DETECTE [facility] Crypto neoformans/gattii (PCR)(LAB) Not detected NOT DETECTE [facility] CTX-M ESBL (PCR) Not detected NOT DETECTE [facility] Enterobacter cloacae complex (PCR) Detected Abnormal NOT DETECTE [facility] Comment on above: RESULTS CALLED TO CHARLIE THAO RN Enterobacterales (PCR) Detected Abnormal NOT DETECTE [facility] Comment on above: RESULTS CALLED TO CHARLIE THAO RN Enterococcus faecalis PCR Not detected NOT DETECTE [facility] Enterococcus faecium PCR Not detected NOT DETECTE [facility] Escherichia coli Result Not detected NOT DETECTE [facility] Haemophilus influenzae DNA Not detected NOT DETECTE [facility] IMP (blaIMP) Carbap Res Gene (PCR) Not detected NOT DETECTE [facility] Klebsiella aerogenes (PCR) Not detected NOT DETECTE [facility] Klebsiella oxytoca (PCR) Not detected NOT DETECTE [facility] Klebsiella pneumoniae group (PCR) Not detected NOT DETECTE [facility] KPC (blaKPC) Detection (PCR) Not detected NOT DETECTE [facility] Listeria monocytogenes (PCR) Not detected NOT DETECTE [facility] MCR-1 Resistance Gene Not detected NOT DETECTE [facility] mecA/C & MREJ Antimicrob Resist Gen NOT APPLICABLE NOT DETECTE [facility] mecA/C-Methicillin Resistance Gene NOT APPLICABLE NOT DETECTE [facility] NDM (blaNDM) Detection (PCR) Not detected NOT DETECTE [facility] Neisseria meningitidis (PCR) Not detected NOT DETECTE [facility] Proteus species (PCR) Not detected NOT DETECTE [facility] Pseudomonas aeruginosa (PCR) Not detected NOT DETECTE [facility] Salmonella spp. (PCR) Not detected NOT DETECTE [facility] Serratia marcescens (PCR) Not detected NOT DETECTE [facility] Staphylococcus aureus (PCR)(LAB) Not detected NOT DETECTE [facility] Staphylococcus epidermidis (PCR) Not detected NOT DETECTE [facility] Staphylococcus lugdunensis (TEM-PCR Not detected NOT DETECTE [facility] Staphylococcus species (PCR) Not detected NOT DETECTE [facility] Stenotroph. maltophilia (PCR) Not detected NOT DETECTE [facility] Streptococcus pneumoniae (PCR) Not detected NOT DETECTE [facility] Streptococcus pyogenes (PCR)(LAB) Not detected NOT DETECTE [facility] Streptococcus species (PCR) Not detected NOT DETECTE [facility] Syn OXA-48-like Carb Res Gene (PCR) Not detected NOT DETECTE [facility] Jessica/B-Vancomycin Resistance Genes NOT APPLICABLE NOT DETECTE [facility] VIM (blaVIM) Carbap Res Gene (PCR) Not detected NOT DETECTE [facility] Urine Bacteria MODERATE #/HPF Abnormal NONE SEEN [facility] Urine Culture Reflexed YES [facility] Urine Microscopic Review YES [facility] Urine Occult Blood SMALL Abnormal NEGATIVE [facility] Urine Other Casts NONE SEEN #/LPF NONE SEEN [facility] Urine Other Crystals None Seen #/HPF None Seen [facility] Urine RBC 10-20 #/HPF Abnormal 0-2 [facility] Urine Squamous Epithelial Cells FEW #/LPF Abnormal NONE/RARE [facility] Urine WBC 20-50 #/HPF Abnormal NONE SEEN [facility] Eosinophils # (Auto) 0.1 10 3/uL 0.0-0.7 Fir [facility] Immature Granulocyte # (Auto) 0.16 10 3/uL High 0.00-0.03 [facility] Troponin I High Sensitivity 8.3 pg/mL 4.0-76.1 [facility] Comment on above: CUT-OFF POINTS HAVE BEEN ESTABLISHED BASED ON THE FOURTHIVERS DEFINITION OF MYOCARDIAL INFARCTION. THE UPPERREFERENCE LIMIT (URL) OF TROPONIN, DEFINED THE 99THPERCENTILE OF cTnI DISTRIBUTION IN A REFERENCE POPULATION,HAS BEEN CONFIRMED THE DECISION THRESHOLD FOR MIDIAGNOSIS.99TH PERCENTILE = 76.2 PG/MLNOTE: HIGH-SENSITIVITY TROPONIN ASSAY IS NOT INTENDED TO BEUSED IN ISOLATION BUT SHOULD BE INTERPRETED IN CONJUNCTIONWITH OTHER DIAGNOSTIC AND CLINICAL INFORMATION. No Panel InformationOrdered By: Mercedez Cramer on 04-23-2024 Blood Culture 2 [facility] Blood Culture 1 [facility] Platelet mean volume Auto (B ld) [Entitic vol]on 04-23-2024 Platelet mean volume (Bld) [Entitic vol] 12.5 fL 9.5-13.5 [facility] Platelets Auto (Bld) [#/Vol] on 04-23-2024 Platelets (Bld) [#/Vol] 318 10 3/uL 150-450 [facility] Prothrombin time (PT)on PT Coag (PPP) [Time] 11.5 s 9.0-11.6 [facility] RBC Auto (Bld) [#/Vol]on RBC (Bld) [#/Vol] 3.91 10 6/uL Low 4.70-6.10 [facility] Serum or plasma albumin/glob ulin mass ratioon 04-23-2024 Albumin/Globulin [Mass ratio] 0.6 {ratio} [facility] Serum or plasma anion gap de terminationon 04-23-2024 Anion gap [Moles/Vol] 17.5 mmol/L [facility] Coding Summary.on 04-13-2024 Coding Summary. YKSNHvun07LVm3qAu+PG hlYWQ +WW0KPYLmI45udRYayO6sG8PJ TElOSywgQVBQTElOSyIgbmFtZ U0kjYGzUKSd IC8+LF6nKFMmQgcuaDPfc6I0n ZI3U61gxe2jKExraVW8FXDuYo Vhdqfad4uksWd5MHipEerpVlT t HUOjdV89TZQ6gP56Zf07tGWzm NHof5ehwUk6OcEmXARzUTC7bD asXMrsk5TwTYVbP05djAAmh2W 6 HOQbkXevbBBoCtZlfXU7vF2jW Cukldkcb8zwymxiBpx7de50rN Gvi0L8qDD4A4BvmoQ8EIUdyXN g NruuzLSFyE2pbdbpn5vkgpqxA pYeJXEjHZh0KPu4SAOamBxdAk DdIO64KZZ7TZHnquUhG5LbOPD s aPlxPkY2t1L6Pq0IG7NWTcpwZ 1VNTUFSWTwvdGQ+XP90ww80N5 RtDshpQfd6LCZdXFH0lYX4lD3 n QXHfDCdqv8M7pCH9X1VkoiImy n2wt1pzVBDzZJaiU92joLSpj3 S1JVGzpMQ0WHTltVlyHgTxuK2 3 Oyc+EFWsvUcvp1UgQlxfz6ina 8harKj0QjhzZGXfawYpdMlwJQ J4y7DjRk7vKJMxiWR9yJD5iQ8 i NmYgHsQ9ANbkD248BkGylIUyM gaoF62rG4AxbPD+TSVrJhg9DV TxzBexUF2vR0RnFMFspyyliLP m kGjhBX5eEVIpryrbQKBldV3pY TFhE9x8UzJyDkX1QUfeJ1WxWY YcsqxkEo63vJ7kPcBwPdU9MNj u E1BsfpF1LORsxNNzUEjnIQA5I 20wi1O6YFTvJBVlUBC2zUP4qI 1hbGlnbjogbGVmdDsgdmVydGl j SXmsZKonU609KEXbeYkoSdQpZ GluZyBEYXRlOiAgMDYvMjYvMj AyNDwvdGQ+JBRyCRY8eZnvBEH n iIYnZFqcAy0mhRimpLrxZF5kV NEjryleDAKvyH8rGYCdjWKqdM wpTA7eOGWlsdlxl128TfVdHDM 0 FHOxgTVfG3WykU1mXnLaKVIqL MDbK2MugSWwJSruN871JHbwHi V3BOYvftMpK7ZyFNFigRrrSuS 0 u6B5Pa7Ns9DupdfmS4WwuKKvB mTzElrcONm1C8IwWahfmET+PC 54EUJlKP91IVk0XPM9vWpyMYs i HAJuX3ExwP8pSfEvMDFuKDLaM yc+PHRhYmxlIHdpZHRoPScxMD SmMbWxbKeyCZ4eEt4jZBYiKFU v uWihpWJwTqIer0hiANCwCDmiR X6joOwpT2IyfUY9LWIum6c2Ls 39W22nG6KkkPZ+IBDgzUC1fCD 0 iU1zViYmKrQ4NJcdA231ScXgf JPjNkqls6tqc2uypLj6AsL7PH MbjhLntEsfYYR9o7ZvCc05S51 s IHdpZHRoPSIxNSUiIHZhbGlnb u1iaH6sPj4+VCHnzPT7yYT3fQ 2aBiHdQoM2BKgmG714EnHgwOO v Hzltv5pqe7tezVj7AeNvNYCov xPytCljMAQ1i4IvQz28O9UfcG bkd5AdEgj2yd98gQXxt8U7lOG 9 Q9RrAHAghpaezCAocQhwKZ6qV TMlngasMVPcsZ1tVFPkW0m1Bw SlEoL6RQpoQ3HtxbP0RBBhvIA g CPJqvUYMwS4deoauw9btymhbZ xKwBLPsAOi7HOz6AGGsxYggEf ZvJHZ1MvQ8JUC0dCLqhB1aeXa n hxmppE0uGty+ERC1zNEvhYJDQ C2tZuoelCC+GJNqPZT0nHveFH imUYDfiJ4qDULcN5g7QjVaYeL 1 EVeqX5SzhvU7FDKbiUXlSKWfl ACRwX3swizsi4cscdjqJwQqEL LtLEd5BNr9GKBaoUleVfWeVVQ 0 QlZ3KLU0uZXomK5alMeuatllb G9wOyc+SzdnxNabYBV3RZh2W9 XjPzs0JZMwoBvgHL4jvZXtEIx u Sl9yoCcerSmoKW0mIOFiiynmf 878KsPen0jrLZKleYBlOIumSM Y2H63gi2T6QPZgGTJwSNC2zPS 4 yU9jaCmflmdmcFAflAbjaxSvk UjvGIhnQAyqC309KEElfLspCl KhCJr5O3MyHlz6VGFdnZbuZX1 n qWWbUDokYl6hdZonyRnkGM8fR DTuaspjv435EpAeh9gpLHStrD RkZWmsKOM5P28ft9M5LMMzIHY w INT0pWR0pA2lyGhtbitpjSPjp HhuqdIaeXgsAHysHUsyU667QQ HigLxkFjZmwRs7R9WgXhg8BSI z wTbrBE5ivMAhRZofPj0puFzqf HegWP5aYXTpewjji441HrAbj1 ovIFMqzCJzGGkcQQM7N03ul4M 6 JZOyPGNqNFW4vKE2uG4aqWhuf jogbGVmdDsgdmVydGljYWwtYW hkI172WTHipCkjLhSdvHvgriG g FCzuLIg9I5MlJzoisTC+PC90Y HTdKS02uLYpoELup5vlwQt8Ct InZJLmXZM7tJznIFlei3OePCW t F99uyGXiq5V2SSBiaJsjzWMvP nXwfLO5jF1bSVyelztld1msrk udZwekk2xmno63lG92U23pTQw p TVTwDNGjNZByALIsjMqotj8lm G9wIi8+GMPvoRI6fBH3xG5bVD MlLsF1CVeqJ119DrPurKLsNxq j o5kle4mcnYg6CbE8AAFfvkFrt JvqVRF7v4WoKu87Y21vUGtnRM QyJFUeRIYbABUgiFdvib5kwZ9 w Ii8+JKPhlVA5vIU2hQ8nBeVcP kD7EDycE750ExNppXFcSmelG1 3vY5EtsOO+PQJwKjf0ERMtxWi s DG7irPRcMUpjWt2zPXT4KdSyA xIuATvlT5LzOXAvrrsneqepzA T2UCDhWKMtgN06Sw2qxBybVSV w mSUZlH7eurohq0ejfjeaCgObM OOfBPl2BTx9YZVxmUxiGvTvGO X5XaP8XHU1pYCxnA8cvRxttir g pD1jQ3JgXCSpdobbFt76sG7dY wNcHyH4DVsmXfl+L8FCZWLoFN NIQVJMRVMgTDwvdGQ+PHRkIHN 0 eLzbYXagNWXtrW6iSIYxL1j3H iRsMoF3FWqjT5GwBQRcyzvyVe 80aC6mEmSkAkO3LCplK0OrvlE 6 RQNqmIAjDBmxGRZ1O26zz8H1X KGfDAAcQWQ7wRT0bD0hwXjklf ogbGVmdDsgdmVydGljYWwtYWx p G659YFPgbPdjKuVpEgF0UmE8R Kg2H5EkLuv3IJQskHofET9cxG NwDNwqMb9ncKursYrwYF0pGVJ p zwlxQRDcqB5lRUKjgOIxnTdnJ D3aRFSjohqew011XnVkRIN2BJ YvaSYcQ0QheU5eQyTqKPScBJI w Q5QrrKArCLleT490WRwjUdN8R JKzzqNkP4DdVMBqyKsmVeB0w3 Q5Fw37NYFPCIChyiicqAS+PHR k RLH0fAjjTJfiMJLcbR1gREExF 9c0GnHwCmH3BGewK5ZtZTXgdv jlTu06hE4jGhHuOmQ6MJseV0G v jpV8MKYedLHrAEffVMO0T39zm 4X7NJFmXPCzXWY6rRP7mZ6qtF lnbjogbGVmdDsgdmVydGljYWw t SZbrP699SNHivVqbHm7mtNG0E 1SoXhi9ZJJzfSwhNM9jqIBjDO ysEt7mvZbahUcuNS0uEWVvfdz w EJZdjM7pLHBqeIBhsGumMM8yN MFbjtyqz760StSaVPE1MGUdqM DgC7IcsW1bLhIbZVKgPRJcV3O l cEPzESsdV240DHqzEdT9RFNjl cYsW4XjWWHvhYerVaG8c7M9Ky 3PYMAbSVQfyNLbNsN1D3WtXkn v dHI+QG17OIVkMF49bLHipMHvx 6nppDv9PfRtYLZhAGL2hWfkNH pnz0WxOYQtK44uoXPhv7D6HJR v zHggpMHmWvPbkOF5fN8kVBjlu eszu9dtvezgDiypw5vkgr95iA 79H33qAPshEPNmDGAbPDYtGLT h cSnajx3rnW8gOf0+LYKnhTP1t HI7jV8dRnQvScN6CVtuK121Vk LciWZsSqxpj0xnc1cnoUj0AkE w SPKkgfGloYhlEPJ0o5QgSh03H 29sIHdpZHRoPSIyMCUiIHZhbG awcx7mjL4dRc5+DY4jc5qecw8 1 qF10ySY+RVBfMDS8nTloALryN ZMucN0kTInfCwR7VBBsExXepR 70qCQqXXchGl9ooTwddDswDB3 w ACSzigcjk893VqCyr5iuJNIix QBsJDimAVA2O82ik9P8VSQyXI JkWTQ8cNQ7sU5wpQuehpknwXA m eOldlpTirAyrTSyqIVrwB480I DJiiYhoJkQmeHMpU9xsulGQUT 1lOjwvdGQ+IWLoGAH1zJzvRBf w LPZuyI7gHDOyF3h6DvSzMxX6L KwxE7XiqwO7BAIqkJCeVIXhxN INsI3mspczv1dwgwxnNwKyCYX w ZLh3ZNv0OVDjlGuiUgNyJHR1K mD8WDY5oUIsuC0bmXqcyberuI 9wOyc+RklOOjwvdGQ+PHRkIHN 0 qDzvIEjrJEEowC7eAYIjW1y0M xPiMeL6TUlrC5WqurI8UFPhpY WqZQJcyXSZuB1zpzivw4aufvf g EdCaRURaWEh5WNd0BVWhjFvnF bGcDCW0HpD2NXO2fJOjfI4brG cngzgfiN3qMqk+TVJOOjwvdGQ + JCBqASM4lFbsCQwfSOEkfO9cW PAoC7e8CaRtDhD6KSvdE3Zsil Q7ADWuiXOwDROyuWOCnA2hytj j a5hagljrChTrYMZpVNi5OLt3X QXmaNowGrIxNJO6DaX4GQL6rN ZybX0afUjdobiskV9nLdp+UGF 5 BXK8JM05AA78Q5MkVnfypZWml +PHRhYmxlIHdpZHRoPScxMD RnCvUhyYxlZO6lPr1hYCJiFUG v bGxhcHNlOiBjb (more content not included)... Normal [facility] Patient Letter FTon 2023 Patient [place] [facility] [place]Inserted Image. Nette ble to display) April 11, 20[address]A [address] [place] [address] [place] [address] : 1960 Dear Alisia Correa, We have been trying to reach you with no success. It is important that you return our call regarding your recent lab result upon receiving this letter. Also, at the time of your call, please provide us with your current information. Thank you for your prompt attention to this matter. Sincerely, [facility] [address] [place] [address] [facility] C Urineon 04-07-2024 Bacteria identified Cx Nom (U) Microbiology PROCEDURE: Urine Culture [R1] SOURCE: U Random BODY SITE: COLLECTED DATE/TIME: 04/05/2024 15:30 EDT RECEIVED DATE/TIME: 04/05/2024 18:24 EDT START DATE/TIME: 04/05/2024 18:24 EDT FREE TEXT SOURCE: ADRIA Duncan APRNC, Dakota YAN, CLARE-C, Pippa X Pippa X FINAL REPORTS Final [...] Locations R1: This test was performed at: [facility], [address] [place] [address], [id number] , [place], Normal [facility] Comment on above: Performed By: #### [id number] #### [facility] [address] [place] [address] RAD - MISCon 03-25-2024 RAD - MISC [id number]#[id number] Normal [facility] RAD - Ultrasound Reporton RAD - Ultrasound Report [id number]#[id number] Normal [facility] Patient Educationon 03-15-20 Patient Education Caregiving Antibiotic Medicine, Adult Antibiotic [...] Follow these instructions at home: ? Take bmxh-uip-terokju and prescription medicines as told by your [...] get worse. (more content not included)... Normal [facility] Urology Office/Clinic Noteon 03-15-2024 Urology Office/Clinic [...] of cefdinir. Discussed with the patient starting sqee-mlw-djftfry UTI prevention supplements including d-mannose, Cranberry and [...] Kidney Stones Antibiotic Medicine, Adult Kidney Stones, Ousr-bd-Axzf Benign Prostatic Hyperplasia Problem List/Past Medical History [...] Urinary reten (more content not included)... Normal [facility] Comment on above: Result Comment: Elec tronically Signed By: TITI Duncan APRN, Pippa Brand\.br\Date and Time Signed: 03/15/24 13:28 EDT Provider Letteron 03-01-2024 Provider Letter (Inserted Image. Nette ble to display) March 01, 2024 [address] COR[address]A [address] [place] [address] : 1960 Dear Alisia Weyer, We have been trying to reach you with no success. It is important that you return our call regarding your lab results upon receiving this letter. Also, at the time of your call, please provide us with your current information. Thank you for your prompt attention to this matter. Sincerely, [facility] [address] [place] [address] [facility] C Urineon 02-25-2024 Bacteria identified [...] Locations R1: This test was performed at: [facility], [address] [place] [address], [facility]- , , [facility] Comment on above: Performed By: #### [id number] #### [facility] [address] [place] [address] Glucose Glucometer (BldC) [M ass/Vol]Ordered By: Bernice Shrestha on 02-11-2024 Glucose [Mass/Vol] 70 mg/dL [facility] Comment on above: Random Glucose Refer ence Range is dependent on time and content of last meal. Glucose of more than 200 mg/dL in a nonstressed, ambulatory subject supports the diagnosis of Diabetes Mellitus. Pre-Certification Formon Pre-Certification Form [id number]#1.00TIFF [facility] Ambulatory Visit Summaryon 0 01-11-2024 [...] 11:00 AM EDT Where: [facility] Basophils Auto (Bld) [#/Vol] on 01-06-2024 Basophils (Bld) [#/Vol] 0.0 10 3/uL 0.0-0.1 [facility] Basophils/100 WBC Auto (Bld) on 01-06-2024 Basophils/100 WBC (Bld) 0.6 % 0.2-2.0 [facility] Eosinophils/100 WBC Auto (Bl d)on 01-06-2024 Eosinophils/100 WBC (Bld) 3.2 % 0.9-7.0 [facility] Erythrocyte distribution wid th Auto (RBC) [Ratio]on 01-06-2024 Erythrocyte distribution width (RBC) [Ratio] 14.6 % 11.0-15.0 [facility] Estimated glomerular filtrat ion rate (GFR) non- Americanon 01-06-2024 GFR/1.73 sq M.predicted among non-blacks MDRD (S/P/Bld) [Vol rate/Area] mL/min/{1.73_m2} >=60 [facility] Hematocrit Auto (Bld) [Volum e fraction]on 01-06-2024 Hematocrit (Bld) [Volume fraction] 40.9 % 42.0-54.0 [facility] Hemoglobin [Mass/volume] in Bloodon 01-06-2024 Hemoglobin (Bld) [Mass/Vol] 12.6 g/dL 14.0-18.0 [facility] Laboratory - Chemistry and C hemistry - challengeon 01-06-2024 Calcium [Mass/Vol] 8.5 mg/dL 8.5-10.1 [facility] Chloride [Moles/Vol] 106 mmol/L 98-107 [facility] CO2 [Moles/Vol] 24.7 mmol/L 21.0-32.0 [facility] Creatinine [Mass/Vol] 1.14 mg/dL 0.70-1.30 [facility] GFR/1.73 sq M.predicted MDRD (S/P/Bld) [Vol rate/Area] mL/min/{1.73_m2} >=60 [facility] Glucose [Mass/Vol] 70 mg/dL 74-106 [facility] Lactate [Moles/Vol] 1.4 mmol/L 0.4-2.0 [facility] Potassium [Moles/Vol] 3.6 mmol/L 3.5-5.1 [facility] Sodium [Moles/Vol] 140 mmol/L 136-145 [facility] Urea nitrogen [Mass/Vol] 25.0 mg/dL 7.0-18.0 [facility] Urea nitrogen/Creatinine [Mass ratio] 21.9 mg/mg [facility] - Hematology and Cell countson 01-06-2024 Immature granulocytes/100 WBC (Bld) 0.4 % 0.0-0.5 [facility] - Microbiology an d Antimicrobial susceptibilityOrdered By: Ellen Crabtree on 01-06-2024 Bacteria identified Cx Nom (U) [facility] Leukocytes [#/volume] correc jacqueline for nucleated erythrocytes in Blood by Automated counon 01-06-2024 WBC corrected for nucl RBC Auto (Bld) [#/Vol] 5.3 10 3/uL 4.0-11.0 [facility] Lymphocytes Auto (Bld) [#/Vo l]on 01-06-2024 Lymphocytes (Bld) [#/Vol] 2.2 10 3/uL 1.2-3.8 [facility] Lymphocytes/100 WBC Auto (Bl d)on 01-06-2024 Lymphocytes/100 WBC (Bld) 41.9 % 20.5-60.0 [facility] MCH Auto (RBC) [Entitic mass ]on 01-06-2024 MCH (RBC) [Entitic mass] 28.5 pg 25.9-34.0 [facility] MCHC Auto (RBC) [Mass/Vol]on 01-06-2024 MCHC (RBC) [Mass/Vol] 30.8 g/dL 29.9-35.2 [facility] MCV Auto (RBC) [Entitic vol] on 01-06-2024 MCV (RBC) [Entitic vol] 92.5 fL 80.0-94.0 [facility] Monocytes Auto (Bld) [#/Vol] on 01-06-2024 Monocytes (Bld) [#/Vol] 0.6 10 3/uL 0.3-0.8 [facility] Monocytes/100 WBC Auto (Bld) on 01-06-2024 Monocytes/100 WBC (Bld) 12.0 % 1.7-12.0 [facility] Neutrophils Auto (Bld) [#/Vo l]on 01-06-2024 Neutrophils (Bld) [#/Vol] 2.2 10 3/uL 1.4-6.5 [facility] Neutrophils/100 WBC Auto (Bl d)on 01-06-2024 Neutrophils/100 WBC (Bld) 41.9 % 43.0-75.0 [facility] No Panel Informationon 01-05 Eosinophils # (Auto) 0.2 10 3/uL 0.0-0.7 [facility] Immature Granulocyte # (Auto) 0.02 10 3/uL 0.00-0.03 [facility] Platelet mean volume Auto (B ld) [Entitic vol]on 01-06-2024 Platelet mean volume (Bld) [Entitic vol] 13.0 fL 9.5-13.5 [facility] Platelets Auto (Bld) [#/Vol] on 01-06-2024 Platelets (Bld) [#/Vol] 153 10 3/uL 150-450 [facility] RBC Auto (Bld) [#/Vol]on RBC (Bld) [#/Vol] 4.42 10 6/uL 4.70-6.10 [facility] Serum or plasma anion gap de terminationon 01-06-2024 Anion gap [Moles/Vol] 12.9 mmol/L [facility] Pre-Certification Formon Pre-Certification Form [id number]#[id number] Normal [facility] Ambulatory Visit Summaryon 0 11-17-2023 Ambulatory Visit [...] 11:30 AM EST Where: [facility] Pre-Certification Formon Pre-Certification Form [id number]#[id number] [facility] A1C HEMOGLOBINon 11-10-2023 HbA1c (Bld) [Mass fraction] 5.7 % [employer] Other HbA1c (Bld) [Mass fraction]o n 11-10-2023 A1C HEMOGLOBIN Pikhub Other C Urineon 10-23-2023 Bacteria identified Cx [...] Antibiotic SABI Dilutn SABI Interp SABI Dilutn SAIB Interp ASBI Dilutn SABI Interp Amikacin <=16 S <=16 [...] Locations R1: This test was performed at: [facility], [address] [place] [address], [facility]- , , [facility] Comment on above: Performed By: #### [id number] #### [facility] [address] [place] [address] Ambulatory Visit Summaryon 0 10-22-2023 Ambulatory Visit [...] 11:00 AM EST Where: [facility] Ambulatory Visit Summaryon 11-15-2022 Ambulatory Visit Summary [...] 11:00 AM EST Where: [facility] Lab Reportson 08-28-2023 Lab Reports [id number]#1.00TIFF [facility] Formson 08-27-2023 Forms [id number]#1.00TIFF [facility] RAD - CT Reporton 08-24-2023 RAD - CT Report [id number]#1.00TIFF [facility] RAD - MISCon 08-17-2023 RAD - MISC [id number]#1.00TIFF [facility] Physician Orderon 08-03-2023 Physician Order [id number]#1.00TIFF [facility] Physician Orderon 07-27-2023 Physician Order [id number]#1.00TIFF [facility] C Urineon 07-21-2023 Bacteria identified [...] Locations R1: This test was performed at: [facility], [address] [place] [address], [id number]- , , [facility] Comment on above: Performed By: #### 2 [id number] #### [facility] [address] [place] [id number] Provider Letteron 07-13-2023 Provider Letter (Inserted Image. Nette ble to display) July 13, 2023 ALISIA CORREA [facility] [place] [address] [place] [address] : 1960 Dear Mr. Correa, We have been trying to reach you with no success. It is important that you return our call regarding your recent injections upon receiving this letter. Also, at the time of your call, please provide us with your current information. Please call our office at [phone]. Thank you for your prompt attention to this matter. Sincerely, [facility] [address] [place] [address] [place] [address] [facility] Lab Reportson 07-08-2023 Lab Reports [id number]#1.00CD:12 7 Normal [facility] Gent Levelon 07-01-2023 GENTAMICIN 8.8 microgram/mL Normal 0.5-10.0 [facility] Comment on above: Performed By: #### 2 [id number] ####[facility] Ysxyrmuhjs622 LUCILA Diaz [address] Lab Reportson 07-01-2023 Lab Reports [id number]#1.00CD:12 7 Normal [facility] Physician Orderon 07-01-2023 Physician Order [id number]#1.00CD:12 7 Normal [facility] Physician Order [id number]#1.00CD:12 7 Normal [facility] Physician Orderon 06-29-2023 Physician Order [id number]#1.00CD:12 7 Normal [facility] C Urineon 06-21-2023 Bacteria identified Cx [...] Locations R1: This test was performed at: [facility], [address] [place] [address], [facility]- , , [facility] Comment on above: Performed By: #### 2 [id number] #### [facility] [address] [place] [address] Ambulatory Visit Summaryon 0 06-19-2023 Ambulatory Visit [...] 11:00 AM EDT Where: [facility] Lab Reportson 06-08-2023 Lab Reports [id number]#1.00CD:12 7 [facility] Lab Reports [id number]#1.00CD:12 7 [facility] Lab Reports [id number]#1.00CD:12 7 [facility] Formson 05-29-2023 Forms [id number]#1.00CD:12 7 [facility] C Urineon 05-28-2023 Bacteria identified [...] Locations R1: [facility] performed [facility] [facility], [address] [place] [address], [id number] , , Normal [facility] Comment on above: Performed By: #### [id number] #### [facility] [place] [facility] [address] [place] [id number] CALCULI, URINARYon 3 2,8 Dihydroxyadenine Normal [facility] Comment on above: Performed By: #### C VDTBH #### [facility] [address] [place] [address] Dr. Bruce Nicholas Ammonium Acid Urate Normal [facility] [place] Comment on above: Performed By: #### C VDTBH #### [facility] [address] [place] [address] Dr. Bruce Nicholas Bilirubin Ql (U) Normal [facility] Comment on above: Performed By: #### C VDTBH #### [facility] [address] [address] [address] Bruce Nicholas Ca Oxalate Dihydrate 20 % [facility] Comment on above: Performed By: #### C VDTBH #### [facility] [address] [address] [address] Bruce Nicholas CaHPO4 (Brushite) [facility] Comment on above: Performed By: #### C VDTBH #### [facility] [address] [place] [address] Dr. Bruce Nicholas Calcium Bilirubinate [facility] Comment on above: Performed By: #### C VDTBH #### [facility] [address] [address] [address] Bruce Nicholas Calcium Carbonate [facility] Comment on above: Performed By: #### C VDTBH #### [facility] [address] [address] [address] Bruce Nicholas Calcium Oxalate Monohydrate 80 % [facility] Comment on above: Performed By: #### C VDTBH #### [facility] [address] [address] [address] Bruce Nicholas Calcium Palmitate [facility] Comment on above: Performed By: #### C VDTBH #### [facility] [address] [address] [address] Bruce Nicholas Calcium Phosphate [facility] Comment on above: Performed By: #### C VDTBH #### [facility] [address] [address] [address] Bruce Nicholas Calcium Stearate [facility] Comment on above: Performed By: #### C VDTBH #### [facility] [address] [address] [address] Bruce Nicholas Carbonate Apatite [facility] Comment on above: Performed By: #### C VDTBH #### [facility] [address] [address] [address] Bruce Nicholas Cellular Material [facility] Comment on above: Performed By: #### C VDTBH #### [facility] [address] [address] [address] Bruce Nicholas Cholesterol [facility] Comment on above: Performed By: #### C VDTBH #### [facility] [address] [address] [address] Bruce Birch (U) Brown Normal [facility] Comment on above: Performed By: #### C VDTBH #### [facility] [address] [place] [address] Dr. Bruce Nicholas Comment [facility] Comment on above: Performed By: #### C VDTBH #### [facility] [address] [place] [address] Dr. Bruce Nicholas Comment Comment Normal [facility] Comment on above: Result Comment: Calc ulus received wet. Wet calculi must be dried before analysis, which delays reporting of results. Leaving calculi wet (such as water, saline, blood, urine) may lead to changes in composition. Performed By: #### C VDTBH #### [facility] [address] [place] [address] Dr. Bruce Nicholas Comment: Comment Normal [facility] Comment on above: Result Comment: Phys akilaan questions regarding Calculi Analysis [facility] at: [phone]. Performed By: #### C VDTBH #### [facility] [address] [place] [address] Dr. Bruce Nicholas Composition Comment Normal [facility] Comment on above: Result Comment: Perc entage (Represents the % composition) Performed By: #### C VDTBH #### [facility] [address] [place] [address] Dr. Bruce Nicholas Cystine Normal [facility] Comment on above: Performed By: #### C VDTBH #### [facility] [address] [place] [address] Dr. Bruce Nicholas Disclaimer: Comment Normal [facility] Comment on above: Result Comment: This test was developed and its performance characteristics determined by [facility]. It has not been cleared or approved by the Food and Drug Administration. Performed By: #### C VDTBH #### [facility] [address] [place] [address] Dr. Bruce Nicholas Dried Blood Normal [facility] Comment on above: Performed By: #### C VDTBH #### [facility] [address] [place] [address] Dr. Bruce Nicholas Drug or Metabolite Normal [facility] Comment on above: Performed By: #### C VDTBH #### [facility] [address] [place] [address] Dr. Bruce Nicholas Hydroxyapatite Normal [facility] Comment on above: Performed By: #### C VDTBH #### [facility] [address] [address] [address] Bruce Nicholas Mg NH4 PO4 (Struvite) [facility] Comment on above: Performed By: #### C VDTBH #### [facility] [address] [address] [address] Bruce Nicholas MgHPO4 (Newberyite) Normal [facility] [place] Comment on above: Performed By: #### C VDTBH #### [facility] [address] [address] [address] Bruce Nicholas Other component(s) Normal [facility] Comment on above: Performed By: #### C VDTBH #### [facility] [address] [address] [address] Bruce Nicholas PDF . Normal [facility] Comment on above: Performed By: #### C VDTBH #### [facility] [address] [place] [address] Dr. Bruce Nicholas Photo Comment [facility] Comment on above: Result Comment: Phot ograph will follow under a separate cover Performed By: #### C VDTBH #### [facility] [address] [place] [address] Dr. Bruce Nicholas Please note: Comment [facility] Comment on above: Result Comment: Calc jayant report will follow via computer, mail or membership advisor delivery. Performed By: #### C VDTBH #### [facility] [address] [place] [address] Dr. Bruce Nicholas Size 6x4 [facility] Comment on above: Result Comment: Mult iple pieces received. Dimensions of the largest piece reported. Performed By: #### C VDTBH #### [facility] [address] [place] [address] Dr. Bruce Nicholas Sodium Acid Urate Normal [facility] Comment on above: Performed By: #### C VDTBH #### [facility] [address] [place] [address] Dr. Bruce Nicholas Source Comment [facility] Comment on above: Result Comment: Urin francine Bladder Performed By: #### C VDTBH #### [facility] [address] [place] [address] Dr. Bruce Nicholas Triamterene [facility] Comment on above: Performed By: #### C VDTBH #### [facility] [address] [place] [address] Dr. Bruce Nicholas Uric Acid [facility] Comment on above: Performed By: #### C VDTBH #### [facility] [address] [place] [address] Dr. Bruce Nicholas Uric Acid Dihydrate [facility] Comment on above: Performed By: #### C VDTBH #### [facility] [address] [place] [address] Dr. Bruce Nicholas Weight 615 mg [facility] Comment on above: Performed By: #### C VDTBH #### [facility] [address] [place] [address] Dr. Bruce Nicholas Xanthine [facility] Comment on above: Performed By: #### C VDTBH #### [facility] [address] [place] [address] Dr. Bruce Nicholas POINT OF CARE GLUCOSEon 0 Glucose [Mass/Vol] 70 mg/dL Critically low 74-106 [facility] Comment on above: Performed By: #### C BC #### [facility] [address] [place] [address] Dr. Bruce Nicholas CBC AUTO DIFFon 01-20-2023 BASO # 0.0 103/ul Normal 0.0-0.1 [facility] Comment on above: Performed By: #### C VDTBH #### [facility] [address] [place] [address] Dr. Bruce Nicholas Basophils/100 WBC (Bld) 0.2 % Normal 0.2-2.0 [facility] Comment on above: Performed By: #### C VDTBH #### [facility] [address] [place] [address] Dr. Bruce Nicholas EO # 0.1 103/ul Normal 0.0-0.7 [facility] Comment on above: Performed By: #### C VDTBH #### [facility] [address] [place] [address] Dr. Bruce Nicholas Eosinophils/100 WBC (Bld) 0.7 % Critically low 0.9-7.0 [facility] Comment on above: Performed By: #### C VDTBH #### [facility] [address] [place] [address] Dr. Bruce Nicholas Erythrocyte distribution width (RBC) [Ratio] 15.2 % Critically high 11.0-15.0 [facility] Comment on above: Performed By: #### C VDTBH #### [facility] [address] [place] [address] Dr. Bruce Nicholas Hematocrit (Bld) [Volume fraction] 43.0 % Normal 42.0-54.0 [facility] Comment on above: Performed By: #### C VDTBH #### [facility] [address] [place] [address] Dr. Bruce Nicholas Hemoglobin (Bld) [Mass/Vol] 13.7 g/dL Critically low 14.0-18.0 [facility] Comment on above: Performed By: #### C VDTBH #### [facility] [address] [place] [address] Dr. Bruce Nicholas IG # 0.04 10e3/ul Critically high 0.00-0.03 [facility] Comment on above: Performed By: #### C VDTBH #### [facility] [address] [place] [address] Dr. Bruce Nicholas IG % 0.5 % Normal 0.0-0.5 [facility] Comment on above: Performed By: #### C VDTBH #### [facility] [address] [place] [address] Dr. Bruce Nicholas LYMPH # 1.6 103/ul Normal 1.2-3.8 [facility] Comment on above: Performed By: #### C VDTBH #### [facility] [address] [place] [address] Dr. Bruce Nicholas Lymphocytes/100 WBC (Bld) 18.4 % Critically low 20.5-60.0 [facility] Comment on above: Performed By: #### C VDTBH #### [facility] [address] [place] [address] Dr. Bruce Nicholas MANUAL DIFF REQ NO Normal [facility] Comment on above: Performed By: #### C VDTBH #### [facility] [address] [place] [address] Dr. Bruce Nicholas MCH (RBC) [Entitic mass] 28.8 pg Normal 25.9-34.0 [facility] Comment on above: Performed By: #### C VDTBH #### [facility] [address] [place] [address] Dr. Bruce Nicholas MCHC (RBC) [Mass/Vol] 31.9 g/dL Normal 29.9-35.2 [facility] Comment on above: Performed By: #### C VDTBH #### [facility] [address] [place] [address] Dr. Bruce Nicholas MCV (RBC) [Entitic vol] 90.3 fL Normal 80.0-94.0 [facility] Comment on above: Performed By: #### C VDTBH #### [facility] [address] [place] [address] Dr. Bruce Nicholas MONO # 0.6 103/ul Normal 0.3-0.8 [facility] Comment on above: Performed By: #### C VDTBH #### [facility] [address] [place] [address] Dr. Bruce Nicholas Monocytes/100 WBC (Bld) 6.5 % Normal 1.7-12.0 [facility] Comment on above: Performed By: #### C VDTBH #### [facility] [address] [place] [address] Dr. Bruce Nicholas NEUT # 6.4 103/ul Normal 1.4-6.5 [facility] Comment on above: Performed By: #### C VDTBH #### [facility] [address] [place] [address] Dr. Bruce Nicholas Neutrophils/100 WBC (Bld) 73.7 % Normal 43.0-75.0 [facility] Comment on above: Performed By: #### C VDTBH #### [facility] [address] [address] [address] Bruce Nicholas Platelet mean volume (Bld) [Entitic vol] 11.6 fL Normal 9.5-13.5 [facility] Comment on above: Performed By: #### C VDTBH #### [facility] [address] [address] [address] Bruce Nicholas PLT 229 103/ul Normal 150-450 [facility] Comment on above: Performed By: #### C VDTBH #### [facility] [address] [place] [address] Dr. Bruce Nicholas RBC 4.76 106/ul Normal 4.70-6.10 [facility] Comment on above: Performed By: #### C VDTBH #### [facility] [address] [place] [address] Dr. Bruce Nicholas WBC 8.7 103/ul Normal 4.0-11.0 [facility] Comment on above: Performed By: #### C VDTBH #### [facility] [address] [place] [address] Dr. Bruce Nicholas PROF CHEM 8 (BAS METB)on Anion gap [Moles/Vol] 11.1 mmol/L Normal [facility] Comment on above: Performed By: #### C BC #### [facility] [address] [place] [address] Dr. Bruce Nicholas Calcium [Mass/Vol] 9.5 mg/dL Normal 8.5-10.1 [facility] Comment on above: Performed By: #### C BC #### [facility] [address] [place] [address] Dr. Bruce Nicholas Chloride [Moles/Vol] 105 mmol/L Normal 98-107 [facility] Comment on above: Performed By: #### C BC #### [facility] [address] [address] [address] Bruce Nicholas CO2 [Moles/Vol] 27.5 mmol/L Normal 21.0-32.0 [facility] Comment on above: Performed By: #### C BC #### [facility] [address] [place] [address] Dr. Bruce Nicholas Creatinine [Mass/Vol] 0.73 mg/dL Normal 0.70-1.30 [facility] Comment on above: Performed By: #### C BC #### [facility] [address] [place] [address] Dr. Bruce Nicholas EGFR-AF [place]OOK ISLANDER >60 Normal >=60 [facility] Comment on above: Performed By: #### C BC #### [facility] [address] [place] [address] Dr. Bruce Nicholas EGFR-NON AF [place]LANDER >60 Normal >=60 [facility] Comment on above: Performed By: #### C BC #### [facility] [address] [place] [address] Dr. Bruce iNcholas Glucose [Mass/Vol] 97 mg/dL Normal 74-106 [facility] Comment on above: Performed By: #### C BC #### [facility] [address] [place] [address] Dr. Bruce Nicholas Potassium [Moles/Vol] 4.1 mmol/L Normal 3.5-5.1 [facility] Comment on above: Performed By: #### C BC #### [facility] [address] [place] [address] Dr. Bruce Nicholas Sodium [Moles/Vol] 140 mmol/L Normal 136-145 [facility] Comment on above: Performed By: #### C BC #### [facility] [address] [place] [address] Dr. Bruce Nicholas Urea nitrogen [Mass/Vol] 22.0 mg/dL Critically high 7.0-18.0 [facility] Comment on above: Performed By: #### C BC #### [facility] [address] [place] [address] Dr. Bruce Nicholas Urea nitrogen/Creatinine [Mass ratio] 30.1 mg/mg Normal [facility] Comment on above: Performed By: #### C #### [facility] [address] [address] [address] Bruce Green 12-24-2022 CNOV Office Visit (URFMOB ) ----- ALISIA CORREA ([id number]) 1960 M Date Time Provider Department 12/24/22 11:30 AM SAY REYES URTANVIR During your visit today, we recorded the [...] Hives Date Reviewed: 12/06/2022 Reviewed by: Gerardo Ritchie, ALFONSO - Fully Assessed Reason for Visit: No [...] Ulcerative lesio (more content not included)... Normal [facility] CULTURE URINEon 12-21-2022 CULTURE URINE Isolate 1 Pseudomonas aeruginosa >100,000 cfu/mL of ORGANISM 1 Pseudomonas aeruginosa ANTIBIOTIC M.I.C RX STATUS Piperacillin/Tazobactam <=4 S F Ceftazidime <=1 S F Imipenem 1 S F Amikacin <=2 S F Gentamicin <=1 S F Tobramycin <=1 S F Ciprofloxacin <=0.25 S F Levofloxacin 0.25 S F Normal [facility] Comment on above: Performed By: #### U RCX #### [facility] [address] [place] [address] Dr. Bruce Nicholas CBC AUTO DIFFon 12-18-2022 BASO # 0.0 103/ul Normal 0.0-0.1 [facility] Comment on above: Performed By: #### P OCGLUC #### [facility] [address] [place] [address] Dr. Bruce Nicholas Basophils/100 WBC (Bld) 0.6 % Normal 0.2-2.0 [facility] Comment on above: Performed By: #### P OCGLUC #### [facility] [address] [place] [address] Dr. Bruce Nicholas EO # 0.2 103/ul Normal 0.0-0.7 [facility] Comment on above: Performed By: #### P OCGLUC #### [facility] [address] [place] [address] Dr. Bruce Nicholas Eosinophils/100 WBC (Bld) 3.2 % Normal 0.9-7.0 [facility] Comment on above: Performed By: #### P OCGLUC #### [facility] [address] [place] [address] Dr. Bruce Nicholas Erythrocyte distribution width (RBC) [Ratio] 16.6 % Critically high 11.0-15.0 [facility] Comment on above: Performed By: #### P OCGLUC #### [facility] [address] [place] [address] Dr. Bruce Nicholas Hematocrit (Bld) [Volume fraction] 37.9 % Critically low 42.0-54.0 [facility] Comment on above: Performed By: #### P OCGLUC #### [facility] [address] [place] [address] Dr. Bruce Nicholas Hemoglobin (Bld) [Mass/Vol] 12.0 g/dL Critically low 14.0-18.0 [facility] Comment on above: Performed By: #### P OCGLUC #### [facility] [address] [place] [address] Dr. Bruce Nicholas IG # 0.02 10e3/ul Normal 0.00-0.03 [facility] Comment on above: Performed By: #### P OCGLUC #### [facility] [address] [place] [address] Dr. Bruce Nicholas IG % 0.3 % Normal 0.0-0.5 [facility] Comment on above: Performed By: #### P OCGLUC #### [facility] [address] [place] [address] Dr. Bruce Nicholas LYMPH # 1.2 103/ul Normal 1.2-3.8 [facility] Comment on above: Performed By: #### P OCGLUC #### [facility] [address] [place] [address] Dr. Bruce Nicholas Lymphocytes/100 WBC (Bld) 16.7 % Critically low 20.5-60.0 [facility] Comment on above: Performed By: #### P OCGLUC #### [facility] [address] [place] [address] Dr. Bruce Nicholas MANUAL DIFF REQ NO Normal [facility] Comment on above: Performed By: #### P OCGLUC #### [facility] [address] [place] [address] Dr. Bruce Nicholas MCH (RBC) [Entitic mass] 28.4 pg Normal 25.9-34.0 [facility] Comment on above: Performed By: #### P OCGLUC #### [facility] [address] [place] [address] Dr. Bruce Nicholas MCHC (RBC) [Mass/Vol] 31.7 g/dL Normal 29.9-35.2 [facility] Comment on above: Performed By: #### P OCGLUC #### [facility] [address] [place] [address] Dr. Bruce Nicholas MCV (RBC) [Entitic vol] 89.6 fL Normal 80.0-94.0 [facility] Comment on above: Performed By: #### P OCGLUC #### [facility] [address] [place] [address] Dr. Bruce Nicholas MONO # 0.6 103/ul Normal 0.3-0.8 [facility] Comment on above: Performed By: #### P OCGLUC #### [facility] [address] [place] [address] Dr. Bruce Nicholas Monocytes/100 WBC (Bld) 7.9 % Normal 1.7-12.0 [facility] Comment on above: Performed By: #### P OCGLUC #### [facility] [address] [place] [address] Dr. Bruce Nicholas NEUT # 5.0 103/ul Normal 1.4-6.5 [facility] Comment on above: Performed By: #### P OCGLUC #### [facility] [address] [place] [address] Dr. Bruce Nicholas Neutrophils/100 WBC (Bld) 71.3 % Normal 43.0-75.0 [facility] Comment on above: Performed By: #### P OCGLUC #### [facility] [address] [place] [address] Dr. Bruce Nicholas Platelet mean volume (Bld) [Entitic vol] 12.4 fL Normal 9.5-13.5 [facility] Comment on above: Performed By: #### P OCGLUC #### [facility] [address] [place], [place] [address] Dr. Bruce Nicholas PLT 156 103/ul Normal 150-450 [facility] Comment on above: Performed By: #### P OCGLUC #### [facility] [address] [place], [place] [address] Dr. Bruce Nicholas RBC 4.23 106/ul Critically low 4.70-6.10 [facility] Comment on above: Performed By: #### P OCGLUC #### [facility] [address] [place], [place] [address] Dr. Bruce Nicholas WBC 6.9 103/ul Normal 4.0-11.0 [facility] Comment on above: Performed By: #### P OCGLUC #### [facility] [address] [place], [place] [address] ABD/PELVIS WO CONon 12-18 CT ABD/PELVIS WO CON EXAMINATION: CT ABD/PELVIS WO CON, 12/18/2022 1:17 PM MST HISTORY: Retention of urine COMPARISON: None. TECHNIQUE: CT scan of the abdomen and pelvis was performed without IV contrast. CT dose reduction technique was used, including Automated Exposure Control. 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 Bruce Nicholas Clarity (U) CLEAR Normal CLEAR [facility] Comment on above: Performed By: #### P OCGLUC #### [facility] [address] [address] [address] Bruce Nicholas Color (U) BROWN Abnormal YELLOW [facility] Comment on above: Performed By: #### P OCGLUC #### [facility] [address] [address] [address] Bruce Nicholas ERUCARRIE A micrscopic examina tion will be performed if indicated. Normal [facility] Comment on above: Performed By: #### P OCGLUC #### [facility] [address] [address] [address] Bruce Nicholas Glucose Ql (U) Negative Normal NEGATIVE [facility] Comment on above: Performed By: #### P OCGLUC #### [facility] [address] [address] [address] Bruce Nicholas Hemoglobin Ql (U) MODERATE Abnormal NEGATIVE [facility] Comment on above: Performed By: #### P OCGLUC #### [facility] [address] [address] [address] Bruce Nicholas Ketones Ql (U) Negative Normal NEGATIVE [facility] Comment on above: Performed By: #### P OCGLUC #### [facility] [address] [place] [address] Dr. Bruce Nicholas LEUKOCYTES LARGE Abnormal NEGATIVE [facility] Comment on above: Performed By: #### P OCGLUC #### [facility] [address] [place] [address] Dr. Bruce Nicholas Nitrite Ql (U) Positive Abnormal NEGATIVE [facility] Comment on above: Performed By: #### P OCGLUC #### [facility] [address] [place] [address] Dr. Bruce Nicholas pH (U) 6.0 [pH] Normal 5-9 [facility] Comment on above: Performed By: #### P OCGLUC #### [facility] [address] [place] [address] Dr. Bruce Nicholas Protein (U) [Mass/Vol] 30 mg/dL Abnormal NEGAT AV/ TRACE [facility] Comment on above: Performed By: #### P OCGLUC #### [facility] [address] [place] [address] Dr. Bruce Nicholas SPEC GRAVITY 1.020 Normal 1.005-<=1. 025 [facility] Comment on above: Performed By: #### P OCGLUC #### [facility] [address] [place] [address] Dr. Bruce Nicholas UR MICRO IND INDICATED Normal [facility] Comment on above: Performed By: #### P OCGLUC #### [facility] [address] [place] [address] Dr. Bruce Nicholas Urobilinogen Qn (U) 1.0 {Phillip'U}/dL Normal 0.2 - 1. 0 [facility] Comment on above: Performed By: #### P OCGLUC #### [facility] [address] [place] [address] Dr. Bruce Nicholas PROF 14(COMP METB)on 023 Albumin [Mass/Vol] 3.0 g/dL Critically low 3.4-5.0 [facility] Comment on above: Performed By: #### C VDTBH #### [facility] [address] [address] [address] Bruce Nicholas Albumin/Globulin [Mass ratio] 0.9 {ratio} Normal [facility] Comment on above: Performed By: #### C VDTBH #### [facility] [address] [address] [address] Bruce Nicholas ALP [Catalytic activity/Vol] 112 U/L Normal 46-116 [facility] Comment on above: Performed By: #### C VDTBH #### [facility] [address] [place] [address] Dr. Bruce Nicholas ALT [Catalytic activity/Vol] 7 U/L Critically low 16-63 [facility] Comment on above: Performed By: #### C VDTBH #### [facility] [address] [address] [address] Bruce Nicholas Anion gap [Moles/Vol] 5.6 mmol/L Normal [facility] Comment on above: Performed By: #### C VDTBH #### [facility] [address] [place] [address] Dr. Bruce Nicholas AST [Catalytic activity/Vol] 19 U/L Normal 15-37 [facility] Comment on above: Performed By: #### C VDTBH #### [facility] [address] [address] [address] Bruce Nicholas Bilirubin [Mass/Vol] 0.6 mg/dL Normal 0.2-1.0 [facility] Comment on above: Performed By: #### C VDTBH #### [facility] [address] [address] [address] Bruce Nicholas Calcium [Mass/Vol] 9.0 mg/dL Normal 8.5-10.1 [facility] Comment on above: Performed By: #### C VDTBH #### [facility] [address] [address] [address] Bruce Nicholas Chloride [Moles/Vol] 106 mmol/L Normal 98-107 [facility] Comment on above: Performed By: #### C VDTBH #### [facility] [address] [place] [address] Dr. Bruce Nicholas CO2 [Moles/Vol] 29.0 mmol/L Normal 21.0-32.0 [facility] Comment on above: Performed By: #### C VDTBH #### [facility] [address] [place] [address] Dr. Bruce Nicholas Creatinine [Mass/Vol] 0.71 mg/dL Normal 0.70-1.30 [facility] Comment on above: Performed By: #### C VDTBH #### [facility] [address] [place] [address] Dr. Bruce Nicholas EGFR-AF [place] >60 Normal >=60 [facility] Comment on above: Performed By: #### C VDTBH #### [facility] [address] [place] [address] Dr. Bruce Nicholas EGFR-NON AF [place]ER >60 Normal >=60 [facility] Comment on above: Performed By: #### C VDTBH #### [facility] [address] [place] [address] Dr. Bruce Nicholas Globulin (S) [Mass/Vol] 3.2 g/dL Normal [facility] Comment on above: Performed By: #### C VDTBH #### [facility] [address] [place] [address] Dr. Bruce Nicholas Glucose [Mass/Vol] 93 mg/dL Normal 74-106 [facility] Comment on above: Performed By: #### C VDTBH #### [facility] [address] [place] [address] Dr. Bruce Nicholas Potassium [Moles/Vol] 3.6 mmol/L Normal 3.5-5.1 [facility] Comment on above: Performed By: #### C VDTBH #### [facility] [address] [place] [address] Dr. Bruce Nicholas Protein [Mass/Vol] 6.2 g/dL Critically low 6.4-8.2 [facility] Comment on above: Performed By: #### C VDTBH #### [facility] [address] [place] [address] Dr. Bruce Nicholas Sodium [Moles/Vol] 137 mmol/L Normal 136-145 [facility] Comment on above: Performed By: #### C VDTBH #### [facility] [address] [place] [address] Dr. Bruce Nicholas Urea nitrogen [Mass/Vol] 22.0 mg/dL Critically high 7.0-18.0 [facility] Comment on above: Performed By: #### C VDTBH #### [facility] [address] [place] [address] Dr. Bruce Nicholas Urea nitrogen/Creatinine [Mass ratio] 31.0 mg/mg Normal [facility] Comment on above: Performed By: #### C VDTBH #### [facility] [address] [place] [address] Dr. Bruce Nicholas URINE MICROSCOPIC ONLYon BACTERIA SMALL Abnormal NONE SEEN [facility] Comment on above: Performed By: #### P OCGLUC #### [facility] [address] [place] [address] Dr. Bruce Nicholas Bacteria identified Cx Nom (U) INDICATED Normal [facility] Comment on above: Performed By: #### P OCGLUC #### [facility] [address] [place] [address] Dr. Bruce Nicholas CAST NONE SEEN Normal NONE SEEN [facility] Comment on above: Performed By: #### P OCGLUC #### [facility] [address] [place] [address] Dr. Bruce Nicholas Crystals LM Nom (Urine sed) NONE SEEN Normal NONE SEEN [facility] Comment on above: Performed By: #### P OCGLUC #### [facility] [address] [place] [address] Dr. Bruce Nicholas Epithelial cells LM Ql (Urine sed) NONE SEEN Normal NONE SEEN /RARE [facility] Comment on above: Performed By: #### P OCGLUC #### [facility] [address] [address] [address] Bruce Nicholas MUCOUS NONE SEEN Normal NONE SEEN [facility] Comment on above: Performed By: #### P OCGLUC #### [facility] [address] [address] [address] Bruce Nicholas RBC 10-20 Abnormal 0-2 [facility] Comment on above: Performed By: #### P OCGLUC #### [facility] [address] [address] [address] Bruce Nicholas WBC 50-75 Abnormal NONE SEEN [facility] Comment on above: Performed By: #### P OCGLUC #### [facility] [address] [address] [address] Bruce Nicholas CASE MANAGEMon 12-06-2022 CASE MANAGEM Normal [facility] CNDSon 12-06-2022 CNDS Normal [facility] CASE MANAGEMon 12-05-2022 CASE MANAGEM Normal [facility] CONSULT PROGon 12-05-2022 CONSULT PROG Normal [facility] NUTRITIONon 12-05-2022 NUTRITION Normal [facility] SOCIAL WORKon 12-05-2022 SOCIAL WORK Normal [facility] CASE MANAGEMon 12-04-2022 CASE MANAGEM Normal [facility] CONSULTon 12-04-2022 CONSULT Normal [facility] ALLIED HEALTHon 12-03-2022 ALLIED HEALTH Normal [facility] CASE MANAGEMon 12-03-2022 CASE MANAGEM Normal [facility] CBC panel Auto (Bld)on 12-03 Erythrocyte distribution width (RBC) [Ratio] 16.1 % High 11.5-15.0 [facility] Comment on above: Order Comment: Speci men Type: BLOOD SPECIMENOrdering Facility: [facility] Address: [address] [place], [place] [address] Performed By: #### 5 8410-2 ####[facility] [id number] [facility] [id number] [place] Hematocrit (Bld) [Volume fraction] 38.3 % Low 39.0-51.0 [facility] Comment on above: Order Comment: Speci men Type: BLOOD SPECIMENOrdering Facility: [facility] Address: [address] [place] [address] Performed By: #### 5 8410-2 ####[facility] [id number] [place] [address] [place] Hemoglobin (Bld) [Mass/Vol] 12.4 g/dL Low 13.0-17.0 [facility] Comment on above: Order Comment: Speci men Type: BLOOD SPECIMENOrdering Facility: [facility] Address: [address] [place] [address] Performed By: #### 5 8410-2 ####[facility] [id number] [address] [place] MCH (RBC) [Entitic mass] 28.1 pg Normal 26.0-34.0 [facility] Comment on above: Order Comment: Speci men Type: BLOOD SPECIMENOrdering Facility: [facility] Address: [address] [place] [address] Performed By: #### 5 8410-2 ####[facility] [id number] [address] [place] MCHC (RBC) [Mass/Vol] 32.4 g/dL Normal 30.5-36.0 [facility] Comment on above: Order Comment: Speci men Type: BLOOD SPECIMENOrdering Facility: [facility] Address: [address] [place], [place] [address] Performed By: #### 5 8410-2 ####[facility] [id number] [place] [address] [place] MCV (RBC) [Entitic vol] 86.7 fL Normal 80.0-100.0 [facility] Comment on above: Order Comment: Speci men Type: BLOOD SPECIMENOrdering Facility: [facility] Address: [address] [address] Performed By: #### 5 8410-2 ####[facility] [id number] [place] [address] [place] Nucleated RBC (Bld) [#/Vol] 10*3/uL Normal <0.01 [facility] Comment on above: Order Comment: Speci men Type: BLOOD SPECIMENOrdering Facility: [facility] Address: [address] [address] Performed By: #### 5 8410-2 ####[facility] [id number] [place] [address] [place] Platelet mean volume (Bld) [Entitic vol] 13.0 fL High 9.0-12.7 [facility] Comment on above: Order Comment: Speci men Type: BLOOD SPECIMENOrdering Facility: [facility] Address: [address] [place] [address] Performed By: #### 5 8410-2 ####[facility] [id number] [place] [address] [place] Platelets (Bld) [#/Vol] 144 10*3/uL Low 150-400 [facility] Comment on above: Order Comment: Speci men Type: BLOOD SPECIMENOrdering Facility: [facility] Address: [address] [place] [address] Result Comment: Resu lts checked and verified.No clot detected. Performed By: #### 5 8410-2 ####[facility] [id number] [place] [address] [place] RBC (Bld) [#/Vol] 4.42 10*6/uL Normal 4.20-6.00 [facility] Comment on above: Order Comment: Speci men Type: BLOOD SPECIMENOrdering Facility: [facility] Address: [address] [place], [place] [address] Performed By: #### 5 8410-2 ####[facility] [id number] [place] [address] [place] WBC (Bld) [#/Vol] 9.30 10*3/uL Normal 3.70-11.00 [facility] Comment on above: Order Comment: Speci men Type: BLOOD SPECIMENOrdering Facility: [facility] Address: [address] [place] [address] Performed By: #### 5 8410-2 ####[facility] [id number] [place] [address] [place] CONSULT PROGon 12-03-2022 CONSULT PROG Normal [facility] ECG COMPLETEon 12-03-2022 ECG COMPLETE Normal [facility] Gas and Carbon monoxide pane l (BldV)on 12-03-2022 Base excess Calc (BldV) [Moles/Vol] 1 mmol/L Normal 0-2 [facility] Comment on above: Order Comment: Speci men Type: VENOUS BLOOD SPECIMENOrdering Facility: [facility] Address: [address] [place] [address] Performed By: #### 2 4344-4 ####[facility] [id number] [address] [place] Body temperature 97.52 [degF] Normal [facility] Comment on above: Order Comment: Speci men Type: VENOUS BLOOD SPECIMENOrdering Facility: [facility] Address: [address] [place], [place] [address] Performed By: #### 2 4344-4 ####[facility] [id number] [place] [address] [place] Calcium.ionized (Bld) [Mass/Vol] 1.17 mmol/L Normal 1.08-1.30 [facility] Comment on above: Order Comment: Speci men Type: VENOUS BLOOD SPECIMENOrdering Facility: [facility] Address: [address] [place] [address] Performed By: #### 2 4344-4 ####[facility] [id number] [place] [address] [place] Calcium.ionized adjusted to pH 7.4 (BldA) [Moles/Vol] 1.19 mmol/L Normal 1.08-1.30 [facility] Comment on above: Order Comment: Speci men Type: VENOUS BLOOD SPECIMENOrdering Facility: [facility] Address: [address] [address] Performed By: #### 2 4344-4 ####[facility] [id number] [place] [address] [place] Carboxyhemoglobin (BldV) [Mass fraction] 0.6 % Normal 0.0-2.0 [facility] Comment on above: Order Comment: Speci men Type: VENOUS BLOOD SPECIMENOrdering Facility: [facility] Address: [address] Result Comment: Carb oxyhemoglobin Reference Range for Smokers: 2.0-8.0% Performed By: #### 2 4344-4 ####[facility] [id number] [place] [address] [place] CO2 (BldV) [Partial pressure] 38 mm[Hg] Low 42-55 [facility] Comment on above: Order Comment: Speci men Type: VENOUS BLOOD SPECIMENOrdering Facility: [facility] Address: [address] Performed By: #### 2 4344-4 ####[facility] [id number] [place] [address] [place] CO2 [Moles/Vol] 26 mmol/L Normal 25-29 [facility] Comment on above: Order Comment: Speci men Type: VENOUS BLOOD SPECIMENOrdering Facility: [facility] Address: [address] Performed By: #### 2 4344-4 ####[facility] [id number] [place] [address] [place] CO2 adjusted to patient's actual temperature (BldV) [Partial pressure] 37 mmHg Low 42-55 [facility] Comment on above: Order Comment: Speci men Type: VENOUS BLOOD SPECIMENOrdering Facility: [facility] Address: [address] [place] [address] Performed By: #### 2 4344-4 ####[facility] [id number] [place] [address] [place] Glucose [Mass/Vol] 110 mg/dL High 60-105 [facility] Comment on above: Order Comment: Speci men Type: VENOUS BLOOD SPECIMENOrdering Facility: [facility] Address: [address] [place] [address] Performed By: #### 2 4344-4 ####[facility] [id number] [place] [address] [place] HCO3 (Bld) [Moles/Vol] 25 mmol/L Normal 24-28 [facility] Comment on above: Order Comment: Speci men Type: VENOUS BLOOD SPECIMENOrdering Facility: [facility] Address: [address] [place] [address] Performed By: #### 2 4344-4 ####[facility] [id number] [place] [address] [place] Hematocrit (Bld) [Volume fraction] 36.2 % Low 39.0-51.0 [facility] Comment on above: Order Comment: Speci men Type: VENOUS BLOOD SPECIMENOrdering Facility: [facility] Address: [address] [place] [address] Performed By: #### 2 4344-4 ####[facility] [id number] [place] [address] [place] Hemoglobin (Bld) [Mass/Vol] 11.8 g/dL Low 13.0-17.0 [facility] Comment on above: Order Comment: Speci men Type: VENOUS BLOOD SPECIMENOrdering Facility: [facility] Address: [address] [place], [place] [address] Performed By: #### 2 4344-4 ####[facility] [id number] [place] [address] [place] Lactate [Moles/Vol] 1.2 mmol/L Normal 0.5-2.2 [facility] Comment on above: Order Comment: Speci men Type: VENOUS BLOOD SPECIMENOrdering Facility: [facility] Address: [address] [place] [address] Performed By: #### 2 4344-4 ####[facility] [id number] [place] [address] [place] Methemoglobin (Bld) [Mass fraction] 1.5 % Normal 0.0-1.5 [facility] Comment on above: Order Comment: Speci men Type: VENOUS BLOOD SPECIMENOrdering Facility: [facility] Address: [address] [place], [place] [address] Performed By: #### 2 4344-4 ####[facility] [id number] [place] [address] [place] O2 THERAPY RA=Room Air Normal [facility] Comment on above: Order Comment: Speci men Type: VENOUS BLOOD SPECIMENOrdering Facility: [facility] Address: [address] Performed By: #### 2 4344-4 ####[facility] [id number] [place] [address] [place] Oxygen (BldV) [Partial pressure] 56 mm[Hg] High 35-45 [facility] Comment on above: Order Comment: Speci men Type: VENOUS BLOOD SPECIMENOrdering Facility: [facility] Address: [address] [place] [address] Performed By: #### 2 4344-4 ####[facility] [id number] [place] [address] [place] Oxygen adjusted to patient's actual temperature (BldV) [Partial pressure] 54 mmHg High 35-45 [facility] Comment on above: Order Comment: Speci men Type: VENOUS BLOOD SPECIMENOrdering Facility: [facility] Address: [address] [place] [address] Performed By: #### 2 4344-4 ####[facility] [id number] [place] [address] [place] Oxygen saturation in Venous blood 88 % High 60-85 [facility] Comment on above: Order Comment: Speci men Type: VENOUS BLOOD SPECIMENOrdering Facility: [facility] Address: [address] Performed By: #### 2 4344-4 ####[facility] [id number] [place] [address] [place] Oxyhemoglobin (BldV) [Mass fraction] 86 % High 60-85 [facility] Comment on above: Order Comment: Speci men Type: VENOUS BLOOD SPECIMENOrdering Facility: [facility] Address: [address] [place] [address] Performed By: #### 2 4344-4 ####[facility] [id number] [place] [address] [place] pH (BldV) 7.43 [pH] High 7.32-7.42 [facility] Comment on above: Order Comment: Speci men Type: VENOUS BLOOD SPECIMENOrdering Facility: [facility] Address: [address] [place] [address] Performed By: #### 2 4344-4 ####[facility] [id number] [place] [address] [place] pH adjusted to patient's actual temperature (BldV) 7.44 High 7.32-7.42 [facility] Comment on above: Order Comment: Speci men Type: VENOUS BLOOD SPECIMENOrdering Facility: [facility] Address: [address] [place], [place] [address] Performed By: #### 2 4344-4 ####[facility] [id number] [address] [place] Potassium [Moles/Vol] 3.7 mmol/L Normal 3.5-5.0 [facility] Comment on above: Order Comment: Speci men Type: VENOUS BLOOD SPECIMENOrdering Facility: [facility] Address: [address] [place], [place] [address] Performed By: #### 2 4344-4 ####[facility] [id number] [address] [place] Sodium [Moles/Vol] 136 mmol/L Normal 136-144 [facility] Comment on above: Order Comment: Speci men Type: VENOUS BLOOD SPECIMENOrdering Facility: [facility] Address: [address] [place], [place] [address] Performed By: #### 2 4344-4 ####[facility] [id number] [place] [address] [place] MEDICAL EMERon 12-03-2022 MEDICAL KALEB Normal [facility] Magnesium SerPl-mCncon 12-03 Magnesium [Mass/Vol] 2.0 mg/dL Normal 1.7-2.3 [facility] Comment on above: Order Comment: Speci men Type: BLOOD SPECIMENOrdering Facility: [facility] Address: [address] [place], [place] [address] Performed By: #### 2 4362-6, 16885-0 ####[facility] [id number] [place] [address] [place] NURSING PROGon 12-03-2022 NURSING PROG Normal [facility] Renal function 2000 panelon 12-03-2022 Albumin [Mass/Vol] 3.0 g/dL Low 3.9-4.9 [facility] Comment on above: Order Comment: Speci men Type: BLOOD SPECIMENOrdering Facility: [facility] Address: [address] [place], [place] [address] Performed By: #### 2 436-6, ####[facility] [id number] [place] [address] [place] Anion gap [Moles/Vol] 9 mmol/L Normal 9-18 [facility] Comment on above: Order Comment: Speci men Type: BLOOD SPECIMENOrdering Facility: [facility] Address: [address] [place], [place] [address] Performed By: #### 2 4366, ####[facility] [id number] [place] [address] [place] Calcium [Mass/Vol] 8.9 mg/dL Normal 8.5-10.2 [facility] Comment on above: Order Comment: Speci men Type: BLOOD SPECIMENOrdering Facility: [facility] Address: [address] [place], [place] [address] Performed By: #### 2 4366, ####[facility] [id number] [place] [address] [place] Chloride [Moles/Vol] 104 mmol/L Normal 97-105 [facility] Comment on above: Order Comment: Speci men Type: BLOOD SPECIMENOrdering Facility: [facility] Address: [address] [place], [place] [address] Performed By: #### 2 4366, ####[facility] [id number] [place] [id number] [place] CO2 [Moles/Vol] 25 mmol/L Normal 22-30 [facility] Comment on above: Order Comment: Speci men Type: BLOOD SPECIMENOrdering Facility: [facility] [facility] Address: [address] Performed By: #### 2 4362-6, ####[facility] [id number] [place] [address] [place] Creatinine [Mass/Vol] 0.62 mg/dL Low 0.73-1.22 [facility] Comment on above: Order Comment: Speci men Type: BLOOD SPECIMENOrdering Facility: [facility] Address: [address] Performed By: #### 2 4366, ####[facility] [id number] [place] [address] [place] ESTIMATED GLOMERULAR FILTRATION RATE 107 mL/min/1.73m??? Normal >=60 [facility] Comment on above: Order Comment: Speci men Type: BLOOD SPECIMENOrdering Facility: [facility] Address: [address] [place] [address] Result Comment: Karina mated Glomerular Filtration Rate [...] actual GFR. Performed By: #### 2 4362-6, ####[facility] [id number] [place] [address] [place] Glucose [Mass/Vol] 87 mg/dL Normal 74-99 [facility] Comment on above: Order Comment: Speci men Type: BLOOD SPECIMENOrdering Facility: [facility] Address: [address] [place], [place] [address] Result Comment: The [place] Diabetes Association (ADA) provides guidance for cutoff [...] Standards of Medical Care in Diabetes 2016, [place] [employer]. Diabetes Care. 2016.39(Suppl 1). Performed By: #### 2 4362-6, ####[facility] [id number] [place] [address] [place] Phosphate [Mass/Vol] 2.4 mg/dL Low 2.7-4.8 [facility] Comment on above: Order Comment: Speci men Type: BLOOD SPECIMENOrdering Facility: [facility] Address: [address] Performed By: #### 2 4362-, ####[facility] [id number] [place] [address] [place] Potassium [Moles/Vol] 3.8 mmol/L Normal 3.7-5.1 [facility] Comment on above: Order Comment: Speci men Type: BLOOD SPECIMENOrdering Facility: [facility] Address: [address] Performed By: #### 2 4362-6, ####[facility] [id number] [place] [address] [place] Sodium [Moles/Vol] 138 mmol/L Normal 136-144 [facility] Comment on above: Order Comment: Speci men Type: BLOOD SPECIMENOrdering Facility: [facility] Address: [address] Performed By: #### 2 4362-6, ####[facility] [id number] [place] [id number] [place] Urea nitrogen [Mass/Vol] 24 mg/dL Normal 9-24 [facility] Comment on above: Order Comment: Speci men Type: BLOOD SPECIMENOrdering Facility: [facility] Address: [address] [place] [address] Performed By: #### 2 4362-6, ####[facility] [id number] [place] [id number] [place] THERAPY NTon 12-03-2022 THERAPY NT Normal [facility] Basic metabolic 2000 panelon 12-02-2022 Anion gap [Moles/Vol] 7 mmol/L Low 9-18 [facility] Comment on above: Order Comment: Speci men Type: BLOOD SPECIMENOrdering Facility: [facility] Address: [address] [place] [phone] Performed By: #### 1 9123-9, 2777-1, 25277-9 ####[facility] [id number] [place] [address] [place] Calcium [Mass/Vol] 8.5 mg/dL Normal 8.5-10.2 [facility] Comment on above: Order Comment: Speci men Type: BLOOD SPECIMENOrdering Facility: [facility] Address: [address] [place] Performed By: #### 1 9123-9, 2777-1, 37181-1 ####[facility] [id number] [place] [id number] [place] Chloride [Moles/Vol] 106 mmol/L High 97-105 [facility] Comment on above: Order Comment: Speci men Type: BLOOD SPECIMENOrdering Facility: [facility] Address: [address] [place] [phone] Performed By: #### 1 9123-9, 2777-, 46915-3 ####[facility] [id number] [place] [address] [place] CO2 [Moles/Vol] 27 mmol/L Normal 22-30 [facility] Comment on above: Order Comment: Speci men Type: BLOOD SPECIMENOrdering Facility: [facility] Address: [address] [place] [address] Performed By: #### 1 9123-9, 27704-18, ####[facility] [id number] [place] [address] [place] Creatinine [Mass/Vol] 0.69 mg/dL Low 0.73-1.22 [facility] Comment on above: Order Comment: Speci men Type: BLOOD SPECIMENOrdering Facility: [facility] Address: [address] [place] [address] Performed By: #### 1 9123-9, 27704-18, ####[facility] [id number] [address] [place] ESTIMATED GLOMERULAR FILTRATION RATE 103 mL/min/1.73m??? Normal >=60 [facility] Comment on above: Order Comment: Speci men Type: BLOOD SPECIMENOrdering Facility: [facility] Address: [address] [place] [address] Result Comment: Karina mated Glomerular Filtration Rate [...] GFR. Performed By: #### 1 9123-9, 2777-, 26295-6 ####[facility] [id number] [place] [address] [place] Glucose [Mass/Vol] 78 mg/dL Normal 74-99 [facility] Comment on above: Order Comment: Speci men Type: BLOOD SPECIMENOrdering Facility: [facility] Address: [address] [place] [address] Result Comment: The [place] Diabetes Association (ADA) provides guidance for cutoff [...] Standards of Medical Care in Diabetes 2016, [place] [employer]. Diabetes Care. 2016.39(Suppl 1). Performed By: #### 1 9123-9, 2777-1, 33307-6 ####[facility] [id number] [place] [address] [place] Potassium [Moles/Vol] 3.6 mmol/L Low 3.7-5.1 [facility] Comment on above: Order Comment: Speci men Type: BLOOD SPECIMENOrdering Facility: [facility] Address: [address] [place] [phone] Performed By: #### 1 9123-9, 2777-1, 46307-5 ####[facility] [id number] [place] [address] [place] Sodium [Moles/Vol] 140 mmol/L Normal 136-144 [facility] Comment on above: Order Comment: Speci men Type: BLOOD SPECIMENOrdering Facility: [facility] Address: [address] [place] [phone] Performed By: #### 1 9123-9, 2777-1, 70377-4 ####[facility] [id number] [place] [address] [place] Urea nitrogen [Mass/Vol] 26 mg/dL High 9-24 [facility] Comment on above: Order Comment: Speci men Type: BLOOD SPECIMENOrdering Facility: [facility] Address: [address] [place] [address] Performed By: #### 1 9123-9, 2777-1, 66427-8 ####[facility] [id number] [place] [address] [place] CASE MANAGEMon 12-02-2022 CASE MANAGEM Normal [facility] CBC panel Auto (Bld)on 12-02 Erythrocyte distribution width (RBC) [Ratio] 16.2 % High 11.5-15.0 [facility] Comment on above: Order Comment: Speci men Type: BLOOD SPECIMENOrdering Facility: [facility] Address: [address] [place] [address] Performed By: #### 5 8410-2 ####[facility] [id number] [place] [address] [place] Hematocrit (Bld) [Volume fraction] 39.0 % Normal 39.0-51.0 [facility] Comment on above: Order Comment: Speci men Type: BLOOD SPECIMENOrdering Facility: [facility] Address: [address] [place] [address] Performed By: #### 5 8410-2 ####[facility] [id number] [place] [address] [place] Hemoglobin (Bld) [Mass/Vol] 12.6 g/dL Low 13.0-17.0 [facility] Comment on above: Order Comment: Speci men Type: BLOOD SPECIMENOrdering Facility: [facility] Address: [address] [place] [address] Performed By: #### 5 8410-2 ####[facility] [id number] [address] STATES OF [facility] MCH (RBC) [Entitic mass] 27.8 pg Normal 26.0-34.0 [facility] Comment on above: Order Comment: Speci men Type: BLOOD SPECIMENOrdering Facility: [facility] Address: [address] [place] [address] Performed By: #### 5 8410-2 ####[facility] [id number] [address] MCHC (RBC) [Mass/Vol] 32.3 g/dL Normal 30.5-36.0 [facility] Comment on above: Order Comment: Speci men Type: BLOOD SPECIMENOrdering Facility: [facility] Address: [address] [place] [address] Performed By: #### 5 8410-2 ####[facility] [id number] [address] OF [facility] MCV (RBC) [Entitic vol] 85.9 fL Normal 80.0-100.0 [facility] Comment on above: Order Comment: Speci men Type: BLOOD SPECIMENOrdering Facility: [facility] Address: [address] [place] [address] Performed By: #### 5 8410-2 ####[facility] [id number] [place] [address] [place] Nucleated RBC (Bld) [#/Vol] 10*3/uL Normal <0.01 [facility] Comment on above: Order Comment: Speci men Type: BLOOD SPECIMENOrdering Facility: [facility] Address: [address] [place] [address] Performed By: #### 5 8410-2 ####[facility] [id number] [address] [place] Platelet mean volume (Bld) [Entitic vol] 12.8 fL High 9.0-12.7 [facility] Comment on above: Order Comment: Speci men Type: BLOOD SPECIMENOrdering Facility: [facility] Address: [address] [place] [address] Performed By: #### 5 8410-2 ####[facility] [id number] [place] [address] [place] Platelets (Bld) [#/Vol] 129 10*3/uL Low 150-400 [facility] Comment on above: Order Comment: Speci men Type: BLOOD SPECIMENOrdering Facility: [facility] Address: [address] [place] [address] Result Comment: No c lot detected.Results checked and verified. Performed By: #### 5 8410-2 ####[facility] [id number] [place] [address] [place] RBC (Bld) [#/Vol] 4.54 10*6/uL Normal 4.20-6.00 [facility] Comment on above: Order Comment: Speci men Type: BLOOD SPECIMENOrdering Facility: [facility] Address: [address] [place], [place] [address] Performed By: #### 5 8410-2 ####[facility] [id number] [place] [address] [place] WBC (Bld) [#/Vol] 9.16 10*3/uL Normal 3.70-11.00 [facility] Comment on above: Order Comment: Speci men Type: BLOOD SPECIMENOrdering Facility: [facility] Address: [address] [place], [place] [address] Performed By: #### 5 8410-2 ####[facility] [id number] [place] [address] [place] CONSULT PROGon 12-02-2022 CONSULT PROG Normal [facility] ECG COMPLETEon 12-02-2022 ECG COMPLETE Normal [facility] Magnesium SerPl-mCncon 12-02 Magnesium [Mass/Vol] 1.8 mg/dL Normal 1.7-2.3 [facility] Comment on above: Order Comment: Speci men Type: BLOOD SPECIMENOrdering Facility: [facility] Address: [address] [place] [address] Performed By: #### 1 9123-9, 2777-1, 84583-7 ####[facility] [id number] [place] [address] [place] [facility] Phosphate SerPl-ncon 12-02 Phosphate [Mass/Vol] 2.7 mg/dL Normal 2.7-4.8 [facility] Comment on above: Order Comment: Speci men Type: BLOOD SPECIMENOrdering Facility: [facility] Address: [address] [place] [address] Performed By: #### 1 9123-9, 2777-1, 12558-3 ####[facility] [id number] [place] [address] [place] THERAPY NTon 12-02-2022 THERAPY NT Normal [facility] Basic metabolic 2000 panelon 12-01-2022 Anion gap [Moles/Vol] 10 mmol/L Normal - [facility] Comment on above: Order Comment: Speci men Type: BLOOD SPECIMENOrdering Facility: [facility] Address: [address] [place], [place] [address] Performed By: #### 2 4321-2 ####[facility] [id number] [place] [address] [place] Anion gap [Moles/Vol] 7 mmol/L Low - [facility] Comment on above: Order Comment: Speci men Type: BLOOD SPECIMENOrdering Facility: [facility] Address: [address] [place] [address] Performed By: #### 2 4321-2, 2777-1, 04163-1 ####[facility] [id number] [place] [address] [place] Calcium [Mass/Vol] 8.8 mg/dL Normal 8.5-10.2 [facility] Comment on above: Order Comment: Speci men Type: BLOOD SPECIMENOrdering Facility: [facility] Address: [address] [place] [address] Performed By: #### 2 4321-2 ####[facility] [id number] [place] [address] [place] Calcium [Mass/Vol] 8.9 mg/dL Normal 8.5-10.2 [facility] Comment on above: Order Comment: Speci men Type: BLOOD SPECIMENOrdering Facility: [facility] Address: [address] [place] [address] Performed By: #### 2 4321-2, 27704-18, ####[facility] [id number] [place] [address] [place] Chloride [Moles/Vol] 103 mmol/L Normal 97-105 [facility] Comment on above: Order Comment: Speci men Type: BLOOD SPECIMENOrdering Facility: [facility] Address: [address] [place], [place] [address] Performed By: #### 2 4321-2 ####[facility] [id number] [place] [address] [place] Chloride [Moles/Vol] 104 mmol/L Normal 97-105 [facility] Comment on above: Order Comment: Speci men Type: BLOOD SPECIMENOrdering Facility: [facility] Address: [address] [place] [address] Performed By: #### 2 4321-2, 27704-18, ####[facility] [id number] [place] [id number] [place] CO2 [Moles/Vol] 25 mmol/L Normal 22-30 [facility] Comment on above: Order Comment: Speci men Type: BLOOD SPECIMENOrdering Facility: [facility] Address: [address] [place] [address] Performed By: #### 2 4321-2 ####[facility] [id number] [address] Performed By: #### 2 4321-2, 277-, ####[facility] [id number] [address] [place] Creatinine [Mass/Vol] 0.93 mg/dL Normal 0.73-1.22 [facility] Comment on above: Order Comment: Speci men Type: BLOOD SPECIMENOrdering Facility: [facility] Address: [address] [place] [address] Performed By: #### 2 4321-2 ####[facility] [id number] [address] Performed By: #### 2 4321-2, 2776-10, ####[facility] [id number] [address] [place] ESTIMATED GLOMERULAR FILTRATION RATE 92 mL/min/1.73m??? Normal >=60 [facility] Comment on above: Order Comment: Speci men Type: BLOOD SPECIMENOrdering Facility: [facility] Address: [address] [place] [address] Result Comment: Karina mated Glomerular Filtration Rate [...] actual GFR. Performed By: #### 2 4321-2 ####[facility] [id number] [address] [address] [facility] [place] Performed By: #### 2 4321-2, 2776-, ####[facility] [id number] [address] [address] [place] Glucose [Mass/Vol] 81 mg/dL Normal 74-99 [facility] Comment on above: Order Comment: Speci men Type: BLOOD SPECIMENOrdering Facility: [facility] Address: [address] [place] [address] Result Comment: The [place] Diabetes Association (ADA) provides guidance for cutoff [...] Standards of Medical Care in Diabetes 2016, [place] [employer]. Diabetes Care. 2016.39(Suppl 1). Performed By: #### 2 4321-2 ####[facility] [id number] [address] [address] [facility] [place] Performed By: #### 2 4321-2, 2776-, ####[facility] [id number] [address] [address] [place] Potassium [Moles/Vol] 4.2 mmol/L Normal 3.7-5.1 [facility] Comment on above: Order Comment: Speci men Type: BLOOD SPECIMENOrdering Facility: [facility] Address: [address] [place] [phone] Performed By: #### 2 4321-2 ####[facility] [id number] [place] [address] [place] Potassium [Moles/Vol] 4.3 mmol/L Normal 3.7-5.1 [facility] Comment on above: Order Comment: Speci men Type: BLOOD SPECIMENOrdering Facility: [facility] Address: [address] [place], [place] [address] Performed By: #### 2 4321-2, 2776-10, ####[facility] [id number] [place] [address] [place] Sodium [Moles/Vol] 138 mmol/L Normal 136-144 [facility] Comment on above: Order Comment: Speci men Type: BLOOD SPECIMENOrdering Facility: [facility] Address: [address] [place] [address] Performed By: #### 2 4321-2 ####[facility] [id number] [place] [address] [place] Sodium [Moles/Vol] 136 mmol/L Normal 136-144 [facility] Comment on above: Order Comment: Speci men Type: BLOOD SPECIMENOrdering Facility: [facility] Address: [address] [place] [address] Performed By: #### 2 4321-2, 2776-10, ####[facility] [id number] [place] [id number] [place] Urea nitrogen [Mass/Vol] 34 mg/dL High 9-24 [facility] Comment on above: Order Comment: Speci men Type: BLOOD SPECIMENOrdering Facility: [facility] Address: [address] [place] [address] Performed By: #### 2 4321-2 ####[facility] [id number] [place] [address] [place] Urea nitrogen [Mass/Vol] 35 mg/dL High 9-24 [facility] Comment on above: Order Comment: Speci men Type: BLOOD SPECIMENOrdering Facility: [facility] Address: [address] [place] [address] Performed By: #### 2 4321-2, 2777-1, 31974-0 ####[facility] [id number] [place] [address] [place] CBC panel Auto (Bld)on 12-01 Erythrocyte distribution width (RBC) [Ratio] 16.6 % High 11.5-15.0 [facility] Comment on above: Order Comment: Speci men Type: BLOOD SPECIMENOrdering Facility: [facility] Address: [address] [place] [address] Performed By: #### 5 8410-2 ####[facility] [id number] [place] [address] [place] Hematocrit (Bld) [Volume fraction] 38.1 % Low 39.0-51.0 [facility] Comment on above: Order Comment: Speci men Type: BLOOD SPECIMENOrdering Facility: [facility] Address: [address] [place] [address] Performed By: #### 5 8410-2 ####[facility] [id number] [address] [place] Hemoglobin (Bld) [Mass/Vol] 12.5 g/dL Low 13.0-17.0 [facility] Comment on above: Order Comment: Speci men Type: BLOOD SPECIMENOrdering Facility: [facility] Address: [address] [place] [address] Performed By: #### 5 8410-2 ####[facility] [id number] [place] [address] [place] MCH (RBC) [Entitic mass] 28.1 pg Normal 26.0-34.0 [facility] Comment on above: Order Comment: Speci men Type: BLOOD SPECIMENOrdering Facility: [facility] Address: [address] Performed By: #### 5 8410-2 ####[facility] [id number] [place] [address] [place] MCHC (RBC) [Mass/Vol] 32.8 g/dL Normal 30.5-36.0 [facility] Comment on above: Order Comment: Speci men Type: BLOOD SPECIMENOrdering Facility: [facility] Address: [address] Performed By: #### 5 8410-2 ####[facility] [id number] [place] [address] [place] MCV (RBC) [Entitic vol] 85.6 fL Normal 80.0-100.0 [facility] Comment on above: Order Comment: Speci men Type: BLOOD SPECIMENOrdering Facility: [facility] Address: [address] Performed By: #### 5 8410-2 ####[facility] [id number] [place] [address] [place] Nucleated RBC (Bld) [#/Vol] 10*3/uL Normal <0.01 [facility] Comment on above: Order Comment: Speci men Type: BLOOD SPECIMENOrdering Facility: [facility] Address: [address] Performed By: #### 5 8410-2 ####[facility] [id number] [place] [address] [place] Platelet mean volume (Bld) [Entitic vol] 12.5 fL Normal 9.0-12.7 [facility] Comment on above: Order Comment: Speci men Type: BLOOD SPECIMENOrdering Facility: [facility] Address: [address] [place], [place] [address] Performed By: #### 5 8410-2 ####[facility] [id number] [place] [address] [place] Platelets (Bld) [#/Vol] 121 10*3/uL Low 150-400 [facility] Comment on above: Order Comment: Speci men Type: BLOOD SPECIMENOrdering Facility: [facility] Address: [address] [place] [address] Result Comment: Resu lts checked and verified.No clot detected. Performed By: #### 5 8410-2 ####[facility] [id number] [place] [address] [place] RBC (Bld) [#/Vol] 4.45 10*6/uL Normal 4.20-6.00 [facility] Comment on above: Order Comment: Speci men Type: BLOOD SPECIMENOrdering Facility: [facility] Address: [address] [place] [address] Performed By: #### 5 8410-2 ####[facility] [id number] [place] [address] [place] WBC (Bld) [#/Vol] 9.67 10*3/uL Normal 3.70-11.00 [facility] Comment on above: Order Comment: Speci men Type: BLOOD SPECIMENOrdering Facility: [facility] Address: [address] [place] [address] Performed By: #### 5 8410-2 ####[facility] [id number] [place] [address] [place] CONSULTon 12-01-2022 CONSULT Normal [facility] ECG COMPLETEon 12-01-2022 ECG COMPLETE Normal [facility] HISTORY PHYSICALon HISTORY PHYSICAL Normal [facility] Magnesium SerPl-mCncon 12-01 Magnesium [Mass/Vol] 2.0 mg/dL Normal 1.7-2.3 [facility] Comment on above: Order Comment: Speci men Type: BLOOD SPECIMENOrdering Facility: [facility] Address: [address] [place] [address] Performed By: #### 2 4321-2, 277-1, ####[facility] [id number] [place] [address] [place] [place] NUTRITIONon 12-01-2022 NUTRITION Normal [facility] Phosphate SerPl-mCncon 12-01 Phosphate [Mass/Vol] 2.3 mg/dL Low 2.7-4.8 [facility] Comment on above: Order Comment: Speci men Type: BLOOD SPECIMENOrdering Facility: [facility] Address: [address] [place] [address] Performed By: #### 2 4321-2, 2776-10, ####[facility] [id number] [address] [place] SEPSIS LACTATEon 12-01-2022 Lactate [Moles/Vol] 0.9 mmol/L Normal <=2.0 [facility] Comment on above: Order Comment: Speci men Type: BLOOD SPECIMENOrdering Facility: [facility] Address: [address] [place] [address] Performed By: #### S LACT ####[facility] [id number] [place] [address] [place] THERAPY NTon 12-01-2022 THERAPY NT Normal [facility] US KIDNEY/BLADDERon 12-01-19 23 US KIDNEY/BLADDER Normal [facility] US LEG VEIN DVT [facility] VAS LABo n 12-01-2022 US LEG VEIN DVT [facility] LAB Normal [facility] Bacteria Bld Culton 11-30-19 23 Bacteria identified Cx Nom (Bld) CULTURE, BLOOD: No growth 5 days Normal [facility] Comment on above: Performed By: #### 6 00-7 ####[facility] [id number] [place] [id number] [place] Basic metabolic 2000 panelon 11-30-2022 Anion gap [Moles/Vol] 9 mmol/L Normal 9-18 [facility] Comment on above: Order Comment: Speci men Type: BLOOD SPECIMENOrdering Facility: [facility] Address: [address] Performed By: #### 2 777-1, 22929-7, ####[facility] [id number] [place] [address] [place] Calcium [Mass/Vol] 8.7 mg/dL Normal 8.5-10.2 [facility] Comment on above: Order Comment: Speci men Type: BLOOD SPECIMENOrdering Facility: [facility] Address: [address] Performed By: #### 2 777-1, 24939-3, ####[facility] [id number] [place] [address] [place] Chloride [Moles/Vol] 106 mmol/L High 97-105 [facility] Comment on above: Order Comment: Speci men Type: BLOOD SPECIMENOrdering Facility: [facility] Address: [address] [place] [address] Performed By: #### 2 777-1, 54762-3, ####[facility] [id number] [address] [address] [place] CO2 [Moles/Vol] 22 mmol/L Normal 22-30 [facility] Comment on above: Order Comment: Speci men Type: BLOOD SPECIMENOrdering Facility: [facility] Address: [address] [place] [id number] Performed By: #### 2 777-1, 41345-8, ####[facility] [id number] [place] [address] [place] Creatinine [Mass/Vol] 0.96 mg/dL Normal 0.73-1.22 [facility] Comment on above: Order Comment: Chaz trevizo Type: BLOOD SPECIMENOrdering Facility: [facility] Address: [address] [place] [address] Performed By: #### 2 777-1, 39942-0, ####[facility] [id number] [address] [place] ESTIMATED GLOMERULAR FILTRATION RATE 88 mL/min/1.73m??? Normal >=60 [facility] Comment on above: Order Comment: Chaz trevizo Type: BLOOD SPECIMENOrdering Facility: [facility] Address: [address] [place] [address] Result Comment: Karina mated Glomerular Filtration Rate [...] actual GFR. Performed By: #### 2 777-1, 10852-8, ####[facility] [id number] [place] [address] [place] Glucose [Mass/Vol] 109 mg/dL High 74-99 [facility] Comment on above: Order Comment: Chaz trevizo Type: BLOOD SPECIMENOrdering Facility: [facility] Address: [address] [place] [address] Result Comment: The [place] [employer] (ADA) provides guidance for cutoff [...] Standards of Medical Care in Diabetes 2016, [place] [employer]. Diabetes Care. 2016.39(Suppl 1). Performed By: #### 2 777-1, 74836-7, ####[facility] [id number] [place] [address] [place] Potassium [Moles/Vol] 4.3 mmol/L Normal 3.7-5.1 [facility] Comment on above: Order Comment: Speci men Type: BLOOD SPECIMENOrdering Facility: [facility] Address: [address] [place] [address] Performed By: #### 2 777-1, 53328-8, ####[facility] [id number] [place] [address] [place] Sodium [Moles/Vol] 137 mmol/L Normal 136-144 [facility] Comment on above: Order Comment: Speci men Type: BLOOD SPECIMENOrdering Facility: [facility] Address: [address] [place] [address] Performed By: #### 2 777-1, , ####[facility] [id number] [place] [address] [place] Urea nitrogen [Mass/Vol] 36 mg/dL High 9-24 [facility] Comment on above: Order Comment: Speci men Type: BLOOD SPECIMENOrdering Facility: [facility] Address: [address] Performed By: #### 2 777-1, 72365-9, ####[facility] [id number] [place] [address] [place] CBC panel Auto (Bld)on 11-30 Erythrocyte distribution width (RBC) [Ratio] 17.2 % High 11.5-15.0 [facility] Comment on above: Order Comment: Speci men Type: BLOOD SPECIMENOrdering Facility: [facility] Address: [address] [place] [address] Performed By: #### 5 8410-2 ####[facility] [id number] [place] [address] [place] Hematocrit (Bld) [Volume fraction] 36.4 % Low 39.0-51.0 [facility] Comment on above: Order Comment: Speci men Type: BLOOD SPECIMENOrdering Facility: [facility] Address: [address] [place] [address] Performed By: #### 5 8410-2 ####[facility] [id number] [address] [place] Hemoglobin (Bld) [Mass/Vol] 11.7 g/dL Low 13.0-17.0 [facility] Comment on above: Order Comment: Speci men Type: BLOOD SPECIMENOrdering Facility: [facility] Address: [address] [place] [address] Performed By: #### 5 8410-2 ####[facility] [id number] [place] [address] [place] MCH (RBC) [Entitic mass] 27.9 pg Normal 26.0-34.0 [facility] Comment on above: Order Comment: Speci men Type: BLOOD SPECIMENOrdering Facility: [facility] Address: [address] [place] [address] Performed By: #### 5 8410-2 ####[facility] [id number] [address] [place] MCHC (RBC) [Mass/Vol] 32.1 g/dL Normal 30.5-36.0 [facility] Comment on above: Order Comment: Speci men Type: BLOOD SPECIMENOrdering Facility: [facility] Address: [address] Performed By: #### 5 8410-2 ####[facility] [id number] [address] MCV (RBC) [Entitic vol] 86.9 fL Normal 80.0-100.0 [facility] Comment on above: Order Comment: Speci men Type: BLOOD SPECIMENOrdering Facility: [facility] Address: [address] [place] [address] Performed By: #### 5 8410-2 ####[facility] [id number] [address] [place] Nucleated RBC (Bld) [#/Vol] 10*3/uL Normal <0.01 [facility] Comment on above: Order Comment: Speci men Type: BLOOD SPECIMENOrdering Facility: [facility] Address: [address] [place] [address] Performed By: #### 5 8410-2 ####[facility] [id number] [address] [place] Platelet mean volume (Bld) [Entitic vol] Normal [facility] Comment on above: Order Comment: Speci men Type: BLOOD SPECIMENOrdering Facility: [facility] Address: [address] [place], [place] [address] Result Comment: Unab le to Report. Performed By: #### 5 8410-2 ####[facility] [id number] [address] [place] Platelets (Bld) [#/Vol] 103 10*3/uL Low 150-400 [facility] Comment on above: Order Comment: Speci men Type: BLOOD SPECIMENOrdering Facility: [facility] Address: [address] [place] [address] Result Comment: No c lot detected.Results checked and verified. Performed By: #### 5 8410-2 ####[facility] [id number] [place] [address] [place] RBC (Bld) [#/Vol] 4.19 10*6/uL Low 4.20-6.00 [facility] Comment on above: Order Comment: Speci men Type: BLOOD SPECIMENOrdering Facility: [facility] Address: [address] [place] [address] Performed By: #### 5 8410-2 ####[facility] [id number] [place] [address] [facility] WBC (Bld) [#/Vol] 9.45 10*3/uL Normal 3.70-11.00 [facility] Comment on above: Order Comment: Speci men Type: BLOOD SPECIMENOrdering Facility: [facility] Address: [address] [place] [address] Performed By: #### 5 8410-2 ####[facility] [id number] [place] [address] [place] ECG COMPLETEon 11-30-2022 ECG COMPLETE Normal [facility] Magnesium SerPl-mCncon 11-30 Magnesium [Mass/Vol] 2.1 mg/dL Normal 1.7-2.3 [facility] Comment on above: Order Comment: Speci men Type: BLOOD SPECIMENOrdering Facility: [facility] Address: [address] [place] [address] Performed By: #### 2 777-1, 50821-4, 11317-0 ####[facility] [id number] [place] [address] [place] [facility] Phosphate SerPl-mCncon 11-30 Phosphate [Mass/Vol] 2.8 mg/dL Normal 2.7-4.8 [facility] Comment on above: Order Comment: Speci men Type: BLOOD SPECIMENOrdering Facility: [facility] Address: [address] [place], [place] [id number] Performed By: #### 2 777-1, 64418-2, 81266-7 ####[facility] [id number] [place] [address] [place] Ammonia Plas-sCncon 11-29-19 Ammonia (P) [Moles/Vol] 22 umol/L Normal 16-60 [facility] Comment on above: Order Comment: Speci men Type: BLOOD SPECIMENOrdering Facility: [facility] Address: [address] [place] [address] Result Comment: Resu lt may be falsely increased due to the fact that the sample was not received on ice. Performed By: #### 1 6362-6 ####[facility] [id number] [place] [address] [place] Basic metabolic 2000 panelon 11-29-2022 Anion gap [Moles/Vol] 7 mmol/L Low 9-18 [facility] Comment on above: Order Comment: Speci men Type: BLOOD SPECIMENOrdering Facility: [facility] Address: [address] [place] [address] Performed By: #### 1 9123-9, 2157-6, LIPNF, 32971-4, 3016-3, 2777-1, 3024-7 ####[facility] [id number] [place] [address] [place] Calcium [Mass/Vol] 8.7 mg/dL Normal 8.5-10.2 [facility] Comment on above: Order Comment: Speci men Type: BLOOD SPECIMENOrdering Facility: [facility] Address: [address] [place] [address] Performed By: #### 1 9123-9, 2157-6, LIPNF, 03128-2, 3016-3, 2777-1, 3024-7 ####[facility] [id number] [place] [address] [place] Chloride [Moles/Vol] 111 mmol/L High 97-105 [facility] Comment on above: Order Comment: Speci men Type: BLOOD SPECIMENOrdering Facility: [facility] Address: [address] [place] [address] Performed By: #### 1 9123-9, 7-6, LIPNF, 30141-9, 3016-3, 2777-1, 3024-7 ####[facility] [id number] [place] [address] [place] CO2 [Moles/Vol] 23 mmol/L Normal 22-30 [facility] Comment on above: Order Comment: Speci men Type: BLOOD SPECIMENOrdering Facility: [facility] Address: [address] [place] [address] Performed By: #### 1 9123-9, 2156-6, LIPNF, 81695-9, 3016-3, 2777-1, 302-7 ####[facility] [id number] [place] [address] [place] Creatinine [Mass/Vol] 1.08 mg/dL Normal 0.73-1.22 [facility] Comment on above: Order Comment: Speci men Type: BLOOD SPECIMENOrdering Facility: [facility] Address: [address] [place], [place] [address] Performed By: #### 1 9123-9, 6, LIPNF, 26288-6, 3016-3, 2777-1, 3024-7 ####[facility] [id number] [place] [address] [place] ESTIMATED GLOMERULAR FILTRATION RATE 77 mL/min/1.73m??? Normal >=60 [facility] Comment on above: Order Comment: Speci men Type: BLOOD SPECIMENOrdering Facility: [facility] Address: [address] [place] [address] Result Comment: Karina mated Glomerular Filtration Rate [...] Performed By: #### 1 9123-9, 7-6, LIPNF, 19220-1, 3016-3, 2777-1, 302-7 ####[facility] [id number] [address] [address] [place] Glucose [Mass/Vol] 94 mg/dL Normal 74-99 [facility] Comment on above: Order Comment: Specisatu trevizo Type: BLOOD SPECIMENOrdering Facility: [facility] Address: [address] [place], [place] [phone] Result Comment: The [place] [employer] (ADA) provides guidance for cutoff [...] Standards of Medical Care in Diabetes 2016, [place] [employer]. Diabetes Care. 2016.39(Suppl 1). Performed By: #### 1 9123-9, 7-6, LIPNF, 82625-8, 3016-3, 2777-1, 302-7 ####[facility] [id number] [place] [address] [place] Potassium [Moles/Vol] 4.2 mmol/L Normal 3.7-5.1 [facility] Comment on above: Order Comment: Speci men Type: BLOOD SPECIMENOrdering Facility: [facility] Address: [address] [place] [id number] Performed By: #### 1 9123-9, 2156-6, LIPNF, 82298-4, 3016-3, 7-1, 7 ####[facility] [id number] [place] [address] [place] Sodium [Moles/Vol] 141 mmol/L Normal 136-144 [facility] Comment on above: Order Comment: Speci men Type: BLOOD SPECIMENOrdering Facility: [facility] Address: [address] [place] [address] Performed By: #### 1 9123-9, 6, LIPNF, 59016-8, 6-3, 2776-1, 7 ####[facility] [id number] [place] [address] [place] Urea nitrogen [Mass/Vol] 38 mg/dL High 9-24 [facility] Comment on above: Order Comment: Speci men Type: BLOOD SPECIMENOrdering Facility: [facility] Address: [address] [place] [address] Performed By: #### 1 9123-9, 2157-03, LIPNF, 04990-0, 6-3, 2776-1, 7 ####[facility] [id number] [place] [address] [place] CBC panel Auto (Bld)on 11-29 Erythrocyte distribution width (RBC) [Ratio] 17.2 % High 11.5-15.0 [facility] Comment on above: Order Comment: Speci men Type: BLOOD SPECIMENOrdering Facility: [facility] Address: [address] [place] [address] Performed By: #### 5 8410-2 ####[facility] [id number] [place] [address] [place] Hematocrit (Bld) [Volume fraction] 33.5 % Low 39.0-51.0 [facility] Comment on above: Order Comment: Speci men Type: BLOOD SPECIMENOrdering Facility: [facility] Address: [address] [place] [address] Performed By: #### 5 8410-2 ####[facility] [id number] [address] STATES OF [facility] Hemoglobin (Bld) [Mass/Vol] 11.1 g/dL Low 13.0-17.0 [facility] Comment on above: Order Comment: Speci men Type: BLOOD SPECIMENOrdering Facility: [facility] Address: [address] [place] [address] Performed By: #### 5 8410-2 ####[facility] [id number] [address] [place] MCH (RBC) [Entitic mass] 27.8 pg Normal 26.0-34.0 [facility] Comment on above: Order Comment: Speci men Type: BLOOD SPECIMENOrdering Facility: [facility] Address: [address] [place] [address] Performed By: #### 5 8410-2 ####[facility] [id number] [address] [place] MCHC (RBC) [Mass/Vol] 33.1 g/dL Normal 30.5-36.0 [facility] Comment on above: Order Comment: Speci men Type: BLOOD SPECIMENOrdering Facility: [facility] Address: [address] [place], [place] [address] Performed By: #### 5 8410-2 ####[facility] [id number] [address] [place] MCV (RBC) [Entitic vol] 83.8 fL Normal 80.0-100.0 [facility] Comment on above: Order Comment: Speci men Type: BLOOD SPECIMENOrdering Facility: [facility] Address: [address] Performed By: #### 5 8410-2 ####[facility] [id number] [place] [address] [place] Nucleated RBC (Bld) [#/Vol] 10*3/uL Normal <0.01 [facility] Comment on above: Order Comment: Speci men Type: BLOOD SPECIMENOrdering Facility: [facility] Address: [address] [place] [address] Performed By: #### 5 8410-2 ####[facility] [id number] [place] [address] [place] Platelet mean volume (Bld) [Entitic vol] 12.8 fL High 9.0-12.7 [facility] Comment on above: Order Comment: Speci men Type: BLOOD SPECIMENOrdering Facility: [facility] Address: [address] [place] [address] Performed By: #### 5 8410-2 ####[facility] [id number] [place] [address] [place] Platelets (Bld) [#/Vol] 101 10*3/uL Low 150-400 [facility] Comment on above: Order Comment: Speci men Type: BLOOD SPECIMENOrdering Facility: [facility] Address: [address] [place], [place] [address] Result Comment: Resu lts checked and verified.No clot detected. Performed By: #### 5 8410-2 ####[facility] [id number] [place] [address] [place] RBC (Bld) [#/Vol] 4.00 10*6/uL Low 4.20-6.00 [facility] Comment on above: Order Comment: Speci men Type: BLOOD SPECIMENOrdering Facility: [facility] Address: [address] [place], [place] [address] Performed By: #### 5 8410-2 ####[facility] [id number] [place] [address] [place] WBC (Bld) [#/Vol] 11.59 10*3/uL High 3.70-11.00 [facility] Comment on above: Order Comment: Speci men Type: BLOOD SPECIMENOrdering Facility: [facility] Address: [address] Performed By: #### 5 8410-2 ####[facility] [id number] [place] [address] [place] CK SerPl-cCncon 11-29-2022 CK [Catalytic activity/Vol] 21 U/L Low 51-298 [facility] Comment on above: Order Comment: Speci men Type: BLOOD SPECIMENOrdering Facility: [facility] Address: [address] [place] [address] Performed By: #### 1 9123-9, 2157-6, LIPNF, 39164-6, 3016-3, 2777-1, 3024-7 ####[facility] [id number] [place] [address] [place] BRAIN WO IVCONon 11-29-19 CT BRAIN WO IVCON Normal [facility] ECG COMPLETEon 11-29-2022 ECG COMPLETE Normal [facility] Gas and Carbon monoxide pane l (BldV)on 11-29-2022 BASE DEFICIT, VENOUS -2 mmol/L Normal -2-0 [facility] Comment on above: Order Comment: Speci men Type: VENOUS BLOOD SPECIMENOrdering Facility: [facility] Address: [address] [place] [address] Performed By: #### 2 4344-4 ####[facility] [id number] [address] [place] Body temperature 98.6 [degF] [facility] Comment on above: Order Comment: Speci men Type: VENOUS BLOOD SPECIMENOrdering Facility: [facility] Address: [address] [place] [address] Performed By: #### 2 4344-4 ####[facility] [id number] [place] [address] [place] Calcium.ionized (Bld) [Mass/Vol] 1.22 mmol/L Normal 1.08-1.30 [facility] Comment on above: Order Comment: Speci men Type: VENOUS BLOOD SPECIMENOrdering Facility: [facility] Address: [address] [place] [address] Performed By: #### 2 4344-4 ####[facility] [id number] [place] [address] [place] Calcium.ionized adjusted to pH 7.4 (BldA) [Moles/Vol] 1.21 mmol/L Normal 1.08-1.30 [facility] Comment on above: Order Comment: Speci men Type: VENOUS BLOOD SPECIMENOrdering Facility: [facility] Address: [address] [place] [address] Performed By: #### 2 4344-4 ####[facility] [id number] [place] [address] [place] Carboxyhemoglobin (BldV) [Mass fraction] 0.4 % Normal 0.0-2.0 [facility] Comment on above: Order Comment: Speci men Type: VENOUS BLOOD SPECIMENOrdering Facility: [facility] Address: [address] [place] [address] Result Comment: Carb oxyhemoglobin Reference Range for Smokers: 2.0-8.0% Performed By: #### 2 4344-4 ####[facility] [id number] [place] [address] [place] CO2 (BldV) [Partial pressure] 39 mm[Hg] Low 42-55 [facility] Comment on above: Order Comment: Speci men Type: VENOUS BLOOD SPECIMENOrdering Facility: [facility] Address: [address] [place] [address] Performed By: #### 2 4344-4 ####[facility] [id number] [place] [address] [place] CO2 [Moles/Vol] 23 mmol/L Low 25-29 [facility] Comment on above: Order Comment: Speci men Type: VENOUS BLOOD SPECIMENOrdering Facility: [facility] Address: [address] [place] [address] Performed By: #### 2 4344-4 ####[facility] [id number] [place] [address] [place] Glucose [Mass/Vol] 155 mg/dL High 60-105 [facility] Comment on above: Order Comment: Speci men Type: VENOUS BLOOD SPECIMENOrdering Facility: [facility] Address: [address] Performed By: #### 2 4344-4 ####[facility] [id number] [place] [address] [place] HCO3 (Bld) [Moles/Vol] 22 mmol/L Low 24-28 [facility] Comment on above: Order Comment: Speci men Type: VENOUS BLOOD SPECIMENOrdering Facility: [facility] Address: [address] Performed By: #### 2 4344-4 ####[facility] [id number] [place] [address] [place] Hematocrit (Bld) [Volume fraction] 36.7 % Low 39.0-51.0 [facility] Comment on above: Order Comment: Speci men Type: VENOUS BLOOD SPECIMENOrdering Facility: [facility] Address: [address] Performed By: #### 2 4344-4 ####[facility] [id number] [place] [address] [place] Hemoglobin (Bld) [Mass/Vol] 11.9 g/dL Low 13.0-17.0 [facility] Comment on above: Order Comment: Speci men Type: VENOUS BLOOD SPECIMENOrdering Facility: [facility] Address: [address] [place], [place] [address] Performed By: #### 2 4344-4 ####[facility] [id number] [place] [address] [place] Lactate [Moles/Vol] 1.9 mmol/L Normal 0.5-2.2 [facility] Comment on above: Order Comment: Speci men Type: VENOUS BLOOD SPECIMENOrdering Facility: [facility] Address: [address] Performed By: #### 2 4344-4 ####[facility] [id number] [place] [address] [place] LITERS 2 Liters/min Normal [facility] Comment on above: Order Comment: Speci men Type: VENOUS BLOOD SPECIMENOrdering Facility: [facility] Address: [address] [place] [address] Performed By: #### 2 4344-4 ####[facility] [id number] [place] [address] [place] Methemoglobin (Bld) [Mass fraction] 1.6 % High 0.0-1.5 [facility] Comment on above: Order Comment: Speci men Type: VENOUS BLOOD SPECIMENOrdering Facility: [facility] Address: [address] [place] [address] Performed By: #### 2 4344-4 ####[facility] [id number] [place] [address] [place] O2 THERAPY NC = Nasal Cannula Normal [facility] Comment on above: Order Comment: Speci men Type: VENOUS BLOOD SPECIMENOrdering Facility: [facility] Address: [address] Performed By: #### 2 4344-4 ####[facility] [id number] [place] [address] [place] Oxygen (BldV) [Partial pressure] 104 mm[Hg] High 35-45 [facility] Comment on above: Order Comment: Speci men Type: VENOUS BLOOD SPECIMENOrdering Facility: [facility] Address: [address] Performed By: #### 2 4344-4 ####[facility] [id number] [place] [address] [place] Oxygen saturation in Venous blood 97 % High 60-85 [facility] Comment on above: Order Comment: Speci men Type: VENOUS BLOOD SPECIMENOrdering Facility: [facility] Address: [address] Performed By: #### 2 4344-4 ####[facility] [id number] [place] [address] [place] Oxyhemoglobin (BldV) [Mass fraction] 95 % High 60-85 [facility] Comment on above: Order Comment: Speci men Type: VENOUS BLOOD SPECIMENOrdering Facility: [facility] Address: [address] [place] [address] Performed By: #### 2 4344-4 ####[facility] [id number] [place] [address] [place] pH (BldV) 7.37 [pH] Normal 7.32-7.42 [facility] Comment on above: Order Comment: Speci men Type: VENOUS BLOOD SPECIMENOrdering Facility: [facility] Address: [address] [place] [address] Performed By: #### 2 4344-4 ####[facility] [id number] [address] [address] [place] Potassium [Moles/Vol] 4.1 mmol/L Normal 3.5-5.0 [facility] Comment on above: Order Comment: Speci men Type: VENOUS BLOOD SPECIMENOrdering Facility: [facility] Address: [address] [place] [address] Performed By: #### 2 4344-4 ####[facility] [id number] [place] [address] [place] Sodium [Moles/Vol] 135 mmol/L Low 136-144 [facility] Comment on above: Order Comment: Speci men Type: VENOUS BLOOD SPECIMENOrdering Facility: [facility] Address: [address] [place] [address] Performed By: #### 2 4344-4 ####[facility] [id number] [place] [address] [place] LIPID PANEL, NONFASTINGon Cholesterol [Mass/Vol] 79 mg/dL Normal <200 [facility] Comment on above: Order Comment: Speci men Type: BLOOD SPECIMENOrdering Facility: [facility] Address: [address] [place], [place] [address] Result Comment: <200 mg/dL, Desirable 200-239 mg/dL, Borderline high>239 mg/dL, High Performed By: #### 1 9123-9, 2157-6, LIPNF, 19329-7, 3016-3, 2777-1, 3024-7 ####[facility] [id number] [place] [address] [place] HDL CHOLESTEROL, NF 15 mg/dL Low >39 [facility] Comment on above: Order Comment: Speci men Type: BLOOD SPECIMENOrdering Facility: [facility] Address: [address] [place] [address] Result Comment: 40-5 9 mg/dL, Acceptable>59 mg/dL, High: Negative risk factor for coronary heart disease<40 mg/dL, Low: Positive risk factor for coronary heart disease Performed By: #### 1 9123-9, 2156-6, LIPNF, 18041-1, 3016-3, 2776-1, 7 ####[facility] [id number] [address] LDL CHOLESTEROL, NF 41 mg/dL Normal <100 [facility] Comment on above: Order Comment: Speci men Type: BLOOD SPECIMENOrdering Facility: [facility] Address: [address] [place] [address] Result Comment: <100 mg/dL, Optimal 100-129 mg/dL, Near optimal/above optimal 130-159 mg/dL, Borderline high 160-189 mg/dL, High>189 mg/dL, Very highSecondary prevention optimal LDL Cholesterol levels are recommended to be < 70 mg/dL Performed By: #### 1 91-9, 6, LIPNF, 58220-8, 3015-3, 2776-10, 3024-04 ####[facility] [id number] [address] LDL/HDL RATIO, NF 2.73 mg/dL High <2.[address] [facility] Comment on above: Order Comment: Speci men Type: BLOOD SPECIMENOrdering Facility: [facility] Address: [address] [place] [address] Result Comment: Refe rence:1. National Cholesterol Education Program ATP III Guideline At-A-Glance Quick Desk Reference: National Heart, Lung, and Blood [place]. National Institutes of Health. 2001: NIH Publication No. 01-3305.2. An International Atherosclerosis Society position paper: global recommendations for the management of dyslipidemia: executive summary, Atherosclerosis. 2014: 232(2):410-413. Performed By: #### 1 9123-9, 2156-6, LIPNF, 90714-2, 6-3, 2776-, 7 ####[facility] [id number] [place] [address] [place] NON HDL CHOL, NF 64 mg/dL Normal <130 [facility] Comment on above: Order Comment: Speci men Type: BLOOD SPECIMENOrdering Facility: [facility] Address: [address] [place] [address] Result Comment: <130 mg/dL, Optimal 130-159 mg/dL, Near optimal/above optimal 160-189 mg/dL, Borderline high 190-219 mg/dL, High>219 mg/dL, Very highSecondary prevention optimal non HDL Cholesterol levels are recommended to be <100 mg/dL Performed By: #### 1 9123-9, 2156-6, LIPNF, 28037-3, 3016-3, 2776-1, 7 ####[facility] [id number] [place] [address] [place] T CHOL/HDL RATIO NF 5.27 mg/dL High <5.10 [facility] Comment on above: Order Comment: Speci men Type: BLOOD SPECIMENOrdering Facility: [facility] Address: [address] [place] [address] Performed By: #### 1 9123-9, 6, LIPNF, 04044-9, 3016-3, 2776-1, 7 ####[facility] [id number] [place] [address] [place] TRIGLYCERIDES, NF 117 mg/dL Normal <[address] [facility] Comment on above: Order Comment: Speci men Type: BLOOD SPECIMENOrdering Facility: [facility] Address: [address] [place] [address] Result Comment: <150 mg/dL, Normal 150-199 mg/dL, Borderline high 200-499 mg/dL, High>499 mg/dL, Very high Performed By: #### 1 9123-9, 2156-6, LIPNF, 01464-4, 3016-3, 2777-1, 302-7 ####[facility] [id number] [place] [address] [place] VLDL CHOLESTEROL, NF 23 mg/dL Normal <30 [facility] Comment on above: Order Comment: Speci men Type: BLOOD SPECIMENOrdering Facility: [facility] Address: [address] [place] [address] Performed By: #### 1 9123-9, 2156-6, LIPNF, 62987-4, 3015-3, 2776-, 3024-04 ####[facility] [id number] [place] [address] [place] Magnesium SerPl-mCncon 11-29 Magnesium [Mass/Vol] 2.3 mg/dL Normal 1.7-2.3 [facility] Comment on above: Order Comment: Speci men Type: BLOOD SPECIMENOrdering Facility: [facility] Address: [address] [place], [place] [address] Performed By: #### 1 9123-9, 6, LIPNF, 19384-5, 3, 2776-10, 3024-04 ####[facility] [id number] [place] [address] [place] Phosphate SerPl-mCncon 11-29 Phosphate [Mass/Vol] 2.6 mg/dL Low 2.7-4.8 [facility] Comment on above: Order Comment: Speci men Type: BLOOD SPECIMENOrdering Facility: [facility] Address: [address] [place], [place] [address] Performed By: #### 1 9123-9, 2156-6, LIPNF, 28770-9, 3015-3, 2776-, 3024-04 ####[facility] [id number] [place] [address] [place] T4 Free SerPl-mCncon 023 Free T4 [Mass/Vol] 0.6 ng/dL Low 0.9-1.7 [facility] Comment on above: Order Comment: Speci men Type: BLOOD SPECIMENOrdering Facility: [facility] Address: [address] [place] [address] Performed By: #### 1 9123-9, 2157-6, LIPNF, 11883-3, 3016-3, 2777-1, 3024-7 ####[facility] [id number] [place] [address] [place] TSH SerPl-aCncon 11-29-2022 TSH Qn 0.221 m[IU]/L Low 0.270-4.20 0 [facility] Comment on above: Order Comment: Speci men Type: BLOOD SPECIMENOrdering Facility: [facility] Address: [address] [place] [address] Performed By: #### 1 9123-9, 2156-6, LIPNF, 64920-2, 3016-3, 2777-1, 3024-7 ####[facility] [id number] [place] [address] [place] Basic metabolic 2000 panelon 11-28-2022 Anion gap [Moles/Vol] 10 mmol/L Normal 9-18 [facility] Comment on above: Order Comment: Speci men Type: BLOOD SPECIMENOrdering Facility: [facility] Address: [address] [place] [address] Performed By: #### 2 4321-2, 2777-1, 50424-3 ####[facility] [id number] [place] [address] [place] Calcium [Mass/Vol] 8.6 mg/dL Normal 8.5-10.2 [facility] Comment on above: Order Comment: Speci men Type: BLOOD SPECIMENOrdering Facility: [facility] Address: [address] [place] [address] Performed By: #### 2 4321-2, 27704-18, ####[facility] [id number] [place] [address] [place] Chloride [Moles/Vol] 109 mmol/L High 97-105 [facility] Comment on above: Order Comment: Speci men Type: BLOOD SPECIMENOrdering Facility: [facility] Address: [address] [place], [place] [address] Performed By: #### 2 4321-2, 2776-10, ####[facility] [id number] [place] [address] [place] CO2 [Moles/Vol] 21 mmol/L Low 22-30 [facility] Comment on above: Order Comment: Speci men Type: BLOOD SPECIMENOrdering Facility: [facility] Address: [address] [place] [address] Performed By: #### 2 4321-2, 2776-10, ####[facility] [id number] [place] [address] [place] Creatinine [Mass/Vol] 1.31 mg/dL High 0.73-1.22 [facility] Comment on above: Order Comment: Speci men Type: BLOOD SPECIMENOrdering Facility: [facility] Address: [address] [place], [place] [address] Performed By: #### 2 4321-2, 2776-10, ####[facility] [id number] [place] [address] [place] ESTIMATED GLOMERULAR FILTRATION RATE 61 mL/min/1.73m??? Normal >=60 [facility] Comment on above: Order Comment: Speci men Type: BLOOD SPECIMENOrdering Facility: [facility] Address: [address] [place], [place] [address] Result Comment: Karina mated Glomerular Filtration Rate [...] actual GFR. Performed By: #### 2 4321-2, 2776-10, ####[facility] [id number] [address] [address] [place] Glucose [Mass/Vol] 113 mg/dL High 74-99 [facility] Comment on above: Order Comment: Speci men Type: BLOOD SPECIMENOrdering Facility: [facility] Address: [address] [place] [id number] Result Comment: The [place] Diabetes Association (ADA) provides guidance for cutoff [...] Standards of Medical Care in Diabetes 2016, [place] [employer]. Diabetes Care. 2016.39(Suppl 1). Performed By: #### 2 4321-2, 2776-10, ####[facility] [id number] [address] [address] [place] Potassium [Moles/Vol] 4.9 mmol/L Normal 3.7-5.1 [facility] Comment on above: Order Comment: Chaz trevizo Type: BLOOD SPECIMENOrdering Facility: [facility] Address: [address] [place] [address] Performed By: #### 2 4321-2, 27704-18, ####[facility] [id number] [place] [address] [place] Sodium [Moles/Vol] 140 mmol/L Normal 136-144 [facility] Comment on above: Order Comment: Speci men Type: BLOOD SPECIMENOrdering Facility: [facility] Address: [address] [place] [address] Performed By: #### 2 4321-2, 2777-1, ####[facility] [id number] [place] [address] [place] Urea nitrogen [Mass/Vol] 38 mg/dL High 9-24 [facility] Comment on above: Order Comment: Speci men Type: BLOOD SPECIMENOrdering Facility: [facility] Address: [address] [place] [address] Performed By: #### 2 4321-2, 2777-1, ####[facility] [id number] [place] [address] [place] CBC panel Auto (Bld)on 11-28 Erythrocyte distribution width (RBC) [Ratio] 17.4 % High 11.5-15.0 [facility] Comment on above: Order Comment: Speci men Type: BLOOD SPECIMENOrdering Facility: [facility] Address: [address] [place] [address] Performed By: #### 5 8410-2 ####[facility] [id number] [place] [address] [place] Hematocrit (Bld) [Volume fraction] 33.3 % Low 39.0-51.0 [facility] Comment on above: Order Comment: Speci men Type: BLOOD SPECIMENOrdering Facility: [facility] Address: [address] [place] [address] Performed By: #### 5 8410-2 ####[facility] [id number] [place] [address] [place] Hemoglobin (Bld) [Mass/Vol] 10.8 g/dL Low 13.0-17.0 [facility] Comment on above: Order Comment: Speci men Type: BLOOD SPECIMENOrdering Facility: [facility] Address: [address] [place], [place] [address] Performed By: #### 5 8410-2 ####[facility] [id number] [address] [place] MCH (RBC) [Entitic mass] 28.1 pg Normal 26.0-34.0 [facility] Comment on above: Order Comment: Speci men Type: BLOOD SPECIMENOrdering Facility: [facility] Address: [address] [place], [place] [address] Performed By: #### 5 8410-2 ####[facility] [id number] [address] [place] MCHC (RBC) [Mass/Vol] 32.4 g/dL Normal 30.5-36.0 [facility] Comment on above: Order Comment: Speci men Type: BLOOD SPECIMENOrdering Facility: [facility] Address: [address] [place], [place] [address] Performed By: #### 5 8410-2 ####[facility] [id number] [address] [place] MCV (RBC) [Entitic vol] 86.5 fL Normal 80.0-100.0 [facility] Comment on above: Order Comment: Speci men Type: BLOOD SPECIMENOrdering Facility: [facility] Address: [address] [place], [place] [address] Performed By: #### 5 8410-2 ####[facility] [id number] [address] [place] Nucleated RBC (Bld) [#/Vol] 10*3/uL Normal <0.01 [facility] Comment on above: Order Comment: Speci men Type: BLOOD SPECIMENOrdering Facility: [facility] Address: [address] [place] [address] Performed By: #### 5 8410-2 ####[facility] [id number] [place] [address] [place] Platelet mean volume (Bld) [Entitic vol] 13.2 fL High 9.0-12.7 [facility] Comment on above: Order Comment: Speci men Type: BLOOD SPECIMENOrdering Facility: [facility] Address: [address] [place] [address] Performed By: #### 5 8410-2 ####[facility] [id number] [place] [address] [place] Platelets (Bld) [#/Vol] 76 10*3/uL Low 150-400 [facility] Comment on above: Order Comment: Speci men Type: BLOOD SPECIMENOrdering Facility: [facility] Address: [address] [place] [address] Result Comment: Resu lts checked and verified.No clot detected. Performed By: #### 5 8410-2 ####[facility] [id number] [place] [address] [place] RBC (Bld) [#/Vol] 3.85 10*6/uL Low 4.20-6.00 [facility] Comment on above: Order Comment: Speci men Type: BLOOD SPECIMENOrdering Facility: [facility] Address: [address] [place] [address] Performed By: #### 5 8410-2 ####[facility] [id number] [place] [address] [place] WBC (Bld) [#/Vol] 10.98 10*3/uL Normal 3.70-11.00 [facility] Comment on above: Order Comment: Speci men Type: BLOOD SPECIMENOrdering Facility: [facility] Address: [address] [place] [place] [id number] Performed By: #### 5 8410-2 ####[facility] [id number] [place] [address] [place] CONSULTon 11-28-2022 CONSULT Normal [facility] Magnesium SerPl-mCncon 11-28 Magnesium [Mass/Vol] 2.1 mg/dL Normal 1.7-2.3 [facility] Comment on above: Order Comment: Speci men Type: BLOOD SPECIMENOrdering Facility: [facility] Address: [address] [facility] [place] [address] Performed By: #### 2 4321-2, 2776-10, ####[facility] [id number] [place] [address] [place] Phosphate SerPl-mCncon 11-28 Phosphate [Mass/Vol] 3.4 mg/dL Normal 2.7-4.8 [facility] Comment on above: Order Comment: Speci men Type: BLOOD SPECIMENOrdering Facility: [facility] Address: [address] [place] [address] Performed By: #### 2 4321-2, 2776-10, ####[facility] [id number] [place] [id number] [place] THERAPY NTon 11-28-2022 THERAPY NT Normal [facility] Basic metabolic 2000 panelon 11-27-2022 Anion gap [Moles/Vol] 13 mmol/L Normal 9-18 [facility] Comment on above: Order Comment: Speci men Type: BLOOD SPECIMENOrdering Facility: [facility] Address: [address] Performed By: #### 2 4321-2 ####[facility] [id number] [place] [address] [place] Calcium [Mass/Vol] 8.3 mg/dL Low 8.5-10.2 [facility] Comment on above: Order Comment: Speci men Type: BLOOD SPECIMENOrdering Facility: [facility] Address: [address] Performed By: #### 2 4321-2 ####[facility] [id number] [place] [address] [place] Chloride [Moles/Vol] 109 mmol/L High 97-105 [facility] Comment on above: Order Comment: Speci men Type: BLOOD SPECIMENOrdering Facility: [facility] Address: [address] [place] [address] Performed By: #### 2 4321-2 ####[facility] [id number] [place] [address] [place] CO2 [Moles/Vol] 18 mmol/L Low 22-30 [facility] Comment on above: Order Comment: Speci men Type: BLOOD SPECIMENOrdering Facility: [facility] Address: [address] Performed By: #### 2 4321-2 ####[facility] [id number] [place] [address] [place] Creatinine [Mass/Vol] 1.52 mg/dL High 0.73-1.22 [facility] Comment on above: Order Comment: Speci men Type: BLOOD SPECIMENOrdering Facility: [facility] Address: [address] Performed By: #### 2 4321-2 ####[facility] [id number] [place] [address] [place] ESTIMATED GLOMERULAR FILTRATION RATE 51 mL/min/1.73m??? Low >=60 [facility] Comment on above: Order Comment: Speci men Type: BLOOD SPECIMENOrdering Facility: [facility] Address: [address] Result Comment: Karina mated Glomerular Filtration [...] actual GFR. Performed By: #### 2 4321-2 ####[facility] [id number] [place] [address] [place] Glucose [Mass/Vol] 154 mg/dL High 74-99 [facility] Comment on above: Order Comment: Chaz trevizo Type: BLOOD SPECIMENOrdering Facility: [facility] Address: [address] [place] [address] Result Comment: The [place] Diabetes [employer] (ADA) provides guidance for cutoff [...] Standards of Medical Care in Diabetes 2016, [place] [employer]. Diabetes Care. 2016.39(Suppl 1). Performed By: #### 2 4321-2 ####[facility] [id number] [place] [address] [place] Potassium [Moles/Vol] 4.6 mmol/L Normal 3.7-5.1 [facility] Comment on above: Order Comment: Chaz trevizo Type: BLOOD SPECIMENOrdering Facility: [facility] Address: [address] [place] [address] Performed By: #### 2 4321-2 ####[facility] [id number] [place] [address] [place] Sodium [Moles/Vol] 140 mmol/L Normal 136-144 [facility] Comment on above: Order Comment: Speci men Type: BLOOD SPECIMENOrdering Facility: [facility] Address: [address] [place] [address] Performed By: #### 2 4321-2 ####[facility] [id number] [place] [address] [place] Urea nitrogen [Mass/Vol] 43 mg/dL High 9-24 [facility] Comment on above: Order Comment: Speci men Type: BLOOD SPECIMENOrdering Facility: [facility] Address: [address] [place] [address] Performed By: #### 2 4321-2 ####[facility] [id number] [place] [address] [place] Anion gap [Moles/Vol] 14 mmol/L Normal 9-18 [facility] Comment on above: Order Comment: Speci men Type: BLOOD SPECIMENOrdering Facility: [facility] Address: [address] [place], [place] [address] Performed By: #### 1 9123-9, 84045-0, 277- ####[facility] [id number] [place] [address] [place] Calcium [Mass/Vol] 8.7 mg/dL Normal 8.5-10.2 [facility] Comment on above: Order Comment: Speci men Type: BLOOD SPECIMENOrdering Facility: [facility] Address: [address] Performed By: #### 1 9123-9, 07688-1, 2777- ####[facility] [id number] [place] [address] [place] Chloride [Moles/Vol] 109 mmol/L High 97-105 [facility] Comment on above: Order Comment: Speci men Type: BLOOD SPECIMENOrdering Facility: [facility] Address: [address] [place] [address] Performed By: #### 1 9123-9, 76574-0, 2776-10 ####[facility] [id number] [place] [address] [place] CO2 [Moles/Vol] 17 mmol/L Low 22-30 [facility] Comment on above: Order Comment: Speci men Type: BLOOD SPECIMENOrdering Facility: [facility] Address: [address] [place] [address] Performed By: #### 1 9123-9, 72207-7, 2776-10 ####[facility] [id number] [place] [address] [place] Creatinine [Mass/Vol] 1.75 mg/dL High 0.73-1.22 [facility] Comment on above: Order Comment: Speci men Type: BLOOD SPECIMENOrdering Facility: [facility] Address: [address] [place] [address] Performed By: #### 1 9123-9, , 2776-10 ####[facility] [id number] [place] [address] [place] ESTIMATED GLOMERULAR FILTRATION RATE 43 mL/min/1.73m??? Low >=60 [facility] Comment on above: Order Comment: Speci men Type: BLOOD SPECIMENOrdering Facility: [facility] Address: [address] [place] [address] Result Comment: Karina mated Glomerular Filtration Rate [...] actual GFR. Performed By: #### 1 9123-9, 50465-9, 2776-10 ####[facility] [id number] [place] [address] [place] Glucose [Mass/Vol] 112 mg/dL High 74-99 [facility] Comment on above: Order Comment: Speci men Type: BLOOD SPECIMENOrdering Facility: [facility] Address: [address] [address] Result Comment: The [place] [employer] (ADA) provides guidance for cutoff [...] Standards of Medical Care in Diabetes 2016, [place] [employer]. Diabetes Care. 2016.39(Suppl 1). Performed By: #### 1 9123-9, 76811-3, 2776-10 ####[facility] [id number] [place] [address] [place] Potassium [Moles/Vol] 5.4 mmol/L High 3.7-5.1 [facility] Comment on above: Order Comment: Speci men Type: BLOOD SPECIMENOrdering Facility: [facility] Address: [address] [address] Performed By: #### 1 9123-9, 53033-2, 27704-18 ####[facility] [id number] [place] [address] [place] Sodium [Moles/Vol] 140 mmol/L Normal 136-144 [facility] Comment on above: Order Comment: Speci men Type: BLOOD SPECIMENOrdering Facility: [facility] Address: [address] [place] [address] Performed By: #### 1 9123-9, 83511-8, 2777-1 ####[facility] [id number] [place] [address] [place] Urea nitrogen [Mass/Vol] 40 mg/dL High 9-24 [facility] Comment on above: Order Comment: Speci men Type: BLOOD SPECIMENOrdering Facility: [facility] Address: [address] [place], [place] [address] Performed By: #### 1 9123-9, 52719-8, 2777-1 ####[facility] [id number] [place] [address] [place] CASE MANAGEMon 11-27-2022 CASE MANAGEM Normal [facility] CBC panel Auto (Bld)on 11-27 Erythrocyte distribution width (RBC) [Ratio] 17.2 % High 11.5-15.0 [facility] Comment on above: Order Comment: Speci men Type: BLOOD SPECIMENOrdering Facility: [facility] Address: [address] [place] [address] Performed By: #### 5 8410-2 ####[facility] [id number] [place] [address] [place] Hematocrit (Bld) [Volume fraction] 36.2 % Low 39.0-51.0 [facility] Comment on above: Order Comment: Speci men Type: BLOOD SPECIMENOrdering Facility: [facility] Address: [address] [place], [place] [address] Performed By: #### 5 8410-2 ####[facility] [id number] [place] [address] [place] Hemoglobin (Bld) [Mass/Vol] 12.0 g/dL Low 13.0-17.0 [facility] Comment on above: Order Comment: Speci men Type: BLOOD SPECIMENOrdering Facility: [facility] Address: [address] [place], [place] [address] Performed By: #### 5 8410-2 ####[facility] [id number] [address] [place] [facility] MCH (RBC) [Entitic mass] 28.4 pg Normal 26.0-34.0 [facility] Comment on above: Order Comment: Speci men Type: BLOOD SPECIMENOrdering Facility: [facility] Address: [address] [place], [place] [address] Performed By: #### 5 8410-2 ####[facility] [id number] [address] [place] MCHC (RBC) [Mass/Vol] 33.1 g/dL Normal 30.5-36.0 [facility] Comment on above: Order Comment: Speci men Type: BLOOD SPECIMENOrdering Facility: [facility] Address: [address] [place] [address] Performed By: #### 5 8410-2 ####[facility] [id number] [address] [place] MCV (RBC) [Entitic vol] 85.8 fL Normal 80.0-100.0 [facility] Comment on above: Order Comment: Speci men Type: BLOOD SPECIMENOrdering Facility: [facility] Address: [address] [place] [address] Performed By: #### 5 8410-2 ####[facility] [id number] [address] [place] Nucleated RBC (Bld) [#/Vol] 10*3/uL Normal <0.01 [facility] Comment on above: Order Comment: Speci men Type: BLOOD SPECIMENOrdering Facility: [facility] Address: [address] [place], [place] [address] Performed By: #### 5 8410-2 ####[facility] [id number] [place] [address] [place] Platelet mean volume (Bld) [Entitic vol] 13.7 fL High 9.0-12.7 [facility] Comment on above: Order Comment: Speci men Type: BLOOD SPECIMENOrdering Facility: [facility] Address: [address] [place] [address] Performed By: #### 5 8410-2 ####[facility] [id number] [place] [address] [place] Platelets (Bld) [#/Vol] 92 10*3/uL Low 150-400 [facility] Comment on above: Order Comment: Speci men Type: BLOOD SPECIMENOrdering Facility: [facility] Address: [address] [place] [address] Result Comment: Resu lts checked and verified.No clot detected. Performed By: #### 5 8410-2 ####[facility] [id number] [place] [address] [place] RBC (Bld) [#/Vol] 4.22 10*6/uL Normal 4.20-6.00 [facility] Comment on above: Order Comment: Speci men Type: BLOOD SPECIMENOrdering Facility: [facility] Address: [address] [place], [place] [address] Performed By: #### 5 8410-2 ####[facility] [id number] [place] [address] [place] WBC (Bld) [#/Vol] 14.13 10*3/uL High 3.70-11.00 [facility] Comment on above: Order Comment: Speci men Type: BLOOD SPECIMENOrdering Facility: [facility] Address: [address] [place] [address] Performed By: #### 5 8410-2 ####[facility] [id number] [place] [address] [place] CONSULT PROGon 02-09-2023 CONSULT PROG Normal [facility] Gas and Carbon monoxide pane l (BldV)on 11-27-2022 BASE DEFICIT, VENOUS -5 mmol/L Low -2-0 [facility] Comment on above: Order Comment: Speci men Type: VENOUS BLOOD SPECIMENOrdering Facility: [facility] Address: [address] [place] [address] Performed By: #### 2 4344-4 ####[facility] [id number] [address] Body temperature 98.6 [degF] Normal [facility] Comment on above: Order Comment: Speci men Type: VENOUS BLOOD SPECIMENOrdering Facility: [facility] Address: [address] [place] [address] Performed By: #### 2 4344-4 ####[facility] [id number] [address] Calcium.ionized (Bld) [Mass/Vol] 1.20 mmol/L Normal 1.08-1.30 [facility] Comment on above: Order Comment: Speci men Type: VENOUS BLOOD SPECIMENOrdering Facility: [facility] Address: [address] [place] [address] Performed By: #### 2 4344-4 ####[facility] [id number] [address] [place] Calcium.ionized adjusted to pH 7.4 (BldA) [Moles/Vol] 1.17 mmol/L Normal 1.08-1.30 [facility] Comment on above: Order Comment: Speci men Type: VENOUS BLOOD SPECIMENOrdering Facility: [facility] Address: [address] [place] [address] Performed By: #### 2 4344-4 ####[facility] [id number] [address] [id number] [address] [place] Carboxyhemoglobin (BldV) [Mass fraction] 0.1 % Normal 0.0-2.0 [facility] Comment on above: Order Comment: Speci men Type: VENOUS BLOOD SPECIMENOrdering Facility: [facility] Address: [address] [place] [address] Result Comment: Carb oxyhemoglobin Reference Range for Smokers: 2.0-8.0% Performed By: #### 2 4344-4 ####[facility] [id number] [place] [address] [place] CO2 (BldV) [Partial pressure] 35 mm[Hg] Low 42-55 [facility] Comment on above: Order Comment: Speci men Type: VENOUS BLOOD SPECIMENOrdering Facility: [facility] Address: [address] [place] [address] Performed By: #### 2 4344-4 ####[facility] [id number] [address] [place] CO2 [Moles/Vol] 20 mmol/L Low 25-29 [facility] Comment on above: Order Comment: Speci men Type: VENOUS BLOOD SPECIMENOrdering Facility: [facility] Address: [address] [place] [address] Performed By: #### 2 4344-4 ####[facility] [id number] [place] [address] [place] Glucose [Mass/Vol] 159 mg/dL High 60-105 [facility] Comment on above: Order Comment: Speci men Type: VENOUS BLOOD SPECIMENOrdering Facility: [facility] Address: [address] [place] [address] Performed By: #### 2 4344-4 ####[facility] [id number] [place] [address] [place] HCO3 (Bld) [Moles/Vol] 19 mmol/L Low 24-28 [facility] Comment on above: Order Comment: Speci men Type: VENOUS BLOOD SPECIMENOrdering Facility: [facility] Address: [address] [address] Performed By: #### 2 4344-4 ####[facility] [id number] [place] [address] [place] Hematocrit (Bld) [Volume fraction] 36.7 % Low 39.0-51.0 [facility] Comment on above: Order Comment: Speci men Type: VENOUS BLOOD SPECIMENOrdering Facility: [facility] Address: [address] [address] Performed By: #### 2 4344-4 ####[facility] [id number] [place] [address] [place] Hemoglobin (Bld) [Mass/Vol] 11.9 g/dL Low 13.0-17.0 [facility] Comment on above: Order Comment: Speci men Type: VENOUS BLOOD SPECIMENOrdering Facility: [facility] Address: [address] [address] Performed By: #### 2 4344-4 ####[facility] [id number] [place] [address] [place] Lactate [Moles/Vol] 2.0 mmol/L Normal 0.5-2.2 [facility] Comment on above: Order Comment: Speci men Type: VENOUS BLOOD SPECIMENOrdering Facility: [facility] Address: [address] [address] Performed By: #### 2 4344-4 ####[facility] [id number] [place] [address] [place] LITERS 5 Liters/min Normal [facility] Comment on above: Order Comment: Speci men Type: VENOUS BLOOD SPECIMENOrdering Facility: [facility] Address: [address] Performed By: #### 2 4344-4 ####[facility] [id number] [place] [address] [place] Methemoglobin (Bld) [Mass fraction] 1.7 % High 0.0-1.5 [facility] Comment on above: Order Comment: Speci men Type: VENOUS BLOOD SPECIMENOrdering Facility: [facility] Address: [address] [place] [address] Performed By: #### 2 4344-4 ####[facility] [id number] [place] [address] [place] O2 THERAPY NC = Nasal Cannula Normal [facility] Comment on above: Order Comment: Speci men Type: VENOUS BLOOD SPECIMENOrdering Facility: [facility] Address: [address] [place] [address] Performed By: #### 2 4344-4 ####[facility] [id number] [place] [address] [place] Oxygen (BldV) [Partial pressure] 71 mm[Hg] High 35-45 [facility] Comment on above: Order Comment: Speci men Type: VENOUS BLOOD SPECIMENOrdering Facility: [facility] Address: [address] [place] [address] Performed By: #### 2 4344-4 ####[facility] [id number] [place] [address] [place] Oxygen saturation in Venous blood 94 % High 60-85 [facility] Comment on above: Order Comment: Speci men Type: VENOUS BLOOD SPECIMENOrdering Facility: [facility] Address: [address] [id number] Performed By: #### 2 4344-4 ####[facility] [id number] [place] [address] [place] Oxyhemoglobin (BldV) [Mass fraction] 92 % High 60-85 [facility] Comment on above: Order Comment: Speci men Type: VENOUS BLOOD SPECIMENOrdering Facility: [facility] Address: [address] [address] Performed By: #### 2 4344-4 ####[facility] [id number] [place] [address] [place] pH (BldV) 7.36 [pH] Normal 7.32-7.42 [facility] Comment on above: Order Comment: Speci men Type: VENOUS BLOOD SPECIMENOrdering Facility: [facility] Address: [address] Performed By: #### 2 4344-4 ####[facility] [id number] [place] [address] [place] Potassium [Moles/Vol] 4.3 mmol/L Normal 3.5-5.0 [facility] Comment on above: Order Comment: Speci men Type: VENOUS BLOOD SPECIMENOrdering Facility: [facility] Address: [address] Performed By: #### 2 4344-4 ####[facility] [id number] [place] [address] [place] Sodium [Moles/Vol] 137 mmol/L Normal 136-144 [facility] Comment on above: Order Comment: Speci men Type: VENOUS BLOOD SPECIMENOrdering Facility: [facility] Address: [address] [place] [address] Performed By: #### 2 4344-4 ####[facility] [id number] [place] [address] [place] BASE DEFICIT, VENOUS -5 mmol/L Low -2-0 [facility] Comment on above: Order Comment: Speci men Type: VENOUS BLOOD SPECIMENOrdering Facility: [facility] Address: [address] Performed By: #### 2 4344-4 ####[facility] [id number] [place] [address] [place] Body temperature 98.6 [degF] Normal [facility] Comment on above: Order Comment: Speci men Type: VENOUS BLOOD SPECIMENOrdering Facility: [facility] Address: [address] [address] Performed By: #### 2 4344-4 ####[facility] [id number] [place] [address] [place] Calcium.ionized (Bld) [Mass/Vol] 1.21 mmol/L Normal 1.08-1.30 [facility] Comment on above: Order Comment: Speci men Type: VENOUS BLOOD SPECIMENOrdering Facility: [facility] Address: [address] [place] [address] Performed By: #### 2 4344-4 ####[facility] [id number] [address] [place] Calcium.ionized adjusted to pH 7.4 (BldA) [Moles/Vol] 1.18 mmol/L Normal 1.08-1.30 [facility] Comment on above: Order Comment: Speci men Type: VENOUS BLOOD SPECIMENOrdering Facility: [facility] Address: [address] [place] [address] Performed By: #### 2 4344-4 ####[facility] [id number] [address] [place] Carboxyhemoglobin (BldV) [Mass fraction] 0.8 % Normal 0.0-2.0 [facility] Comment on above: Order Comment: Speci men Type: VENOUS BLOOD SPECIMENOrdering Facility: [facility] Address: [address] [place] [address] Result Comment: Carb oxyhemoglobin Reference Range for Smokers: 2.0-8.0% Performed By: #### 2 4344-4 ####[facility] [id number] [address] [place] CO2 (BldV) [Partial pressure] 36 mm[Hg] Low 42-55 [facility] Comment on above: Order Comment: Speci men Type: VENOUS BLOOD SPECIMENOrdering Facility: [facility] Address: [address] [address] Performed By: #### 2 4344-4 ####[facility] [id number] [place] [address] [place] CO2 [Moles/Vol] 21 mmol/L Low 25-29 [facility] Comment on above: Order Comment: Speci men Type: VENOUS BLOOD SPECIMENOrdering Facility: [facility] Address: [address] [address] Performed By: #### 2 4344-4 ####[facility] [id number] [place] [address] [place] FIO2 35 % Normal [facility] Comment on above: Order Comment: Speci men Type: VENOUS BLOOD SPECIMENOrdering Facility: [facility] Address: [address] [address] Performed By: #### 2 4344-4 ####[facility] [id number] [place] [address] [place] Glucose [Mass/Vol] 129 mg/dL High 60-105 [facility] Comment on above: Order Comment: Speci men Type: VENOUS BLOOD SPECIMENOrdering Facility: [facility] Address: [address] Performed By: #### 2 4344-4 ####[facility] [id number] [place] [address] [place] HCO3 (Bld) [Moles/Vol] 20 mmol/L Low 24-28 [facility] Comment on above: Order Comment: Speci men Type: VENOUS BLOOD SPECIMENOrdering Facility: [facility] Address: [address] Performed By: #### 2 4344-4 ####[facility] [id number] [place] [address] [place] Hematocrit (Bld) [Volume fraction] 37.1 % Low 39.0-51.0 [facility] Comment on above: Order Comment: Speci men Type: VENOUS BLOOD SPECIMENOrdering Facility: [facility] Address: [address] Performed By: #### 2 4344-4 ####[facility] [id number] [place] [address] [place] Hemoglobin (Bld) [Mass/Vol] 12.0 g/dL Low 13.0-17.0 [facility] Comment on above: Order Comment: Speci men Type: VENOUS BLOOD SPECIMENOrdering Facility: [facility] Address: [address] [address] Performed By: #### 2 4344-4 ####[facility] [id number] [place] [address] [place] Lactate [Moles/Vol] 1.8 mmol/L Normal 0.5-2.2 [facility] Comment on above: Order Comment: Speci men Type: VENOUS BLOOD SPECIMENOrdering Facility: [facility] Address: [address] Performed By: #### 2 4344-4 ####[facility] [id number] [place] [address] [place] Methemoglobin (Bld) [Mass fraction] 1.5 % Normal 0.0-1.5 [facility] Comment on above: Order Comment: Speci men Type: VENOUS BLOOD SPECIMENOrdering Facility: [facility] Address: [address] Performed By: #### 2 4344-4 ####[facility] [id number] [place] [address] [place] O2 THERAPY Hi-Flow Nasal Cannula-Heated Normal [facility] Comment on above: Order Comment: Speci men Type: VENOUS BLOOD SPECIMENOrdering Facility: [facility] Address: [address] [place], [place] [address] Performed By: #### 2 4344-4 ####[facility] [id number] [place] [address] [place] Oxygen (BldV) [Partial pressure] 62 mm[Hg] High 35-45 [facility] Comment on above: Order Comment: Speci men Type: VENOUS BLOOD SPECIMENOrdering Facility: [facility] Address: [address] [place] [address] Performed By: #### 2 4344-4 ####[facility] [id number] [place] [address] [place] Oxygen saturation in Venous blood 90 % High 60-85 [facility] Comment on above: Order Comment: Speci men Type: VENOUS BLOOD SPECIMENOrdering Facility: [facility] Address: [address] [place], [place] [address] Performed By: #### 2 4344-4 ####[facility] [id number] [place] [address] [place] Oxyhemoglobin (BldV) [Mass fraction] 88 % High 60-85 [facility] Comment on above: Order Comment: Speci men Type: VENOUS BLOOD SPECIMENOrdering Facility: [facility] Address: [address] [place], [place] [address] Performed By: #### 2 4344-4 ####[facility] [id number] [place] [address] [place] pH (BldV) 7.35 [pH] Normal 7.32-7.42 [facility] Comment on above: Order Comment: Speci men Type: VENOUS BLOOD SPECIMENOrdering Facility: [facility] Address: [address] [address] Performed By: #### 2 4344-4 ####[facility] [id number] [place] [address] [place] Potassium [Moles/Vol] 4.7 mmol/L Normal 3.5-5.0 [facility] Comment on above: Order Comment: Speci men Type: VENOUS BLOOD SPECIMENOrdering Facility: [facility] Address: [address] [place] [address] Performed By: #### 2 4344-4 ####[facility] [id number] [place] [address] [place] Sodium [Moles/Vol] 139 mmol/L Normal 136-144 [facility] Comment on above: Order Comment: Speci men Type: VENOUS BLOOD SPECIMENOrdering Facility: [facility] Address: [address] [place] [address] Performed By: #### 2 4344-4 ####[facility] [id number] [place] [address] [place] Magnesium SerPl-mCncon 11-27 Magnesium [Mass/Vol] 2.2 mg/dL Normal 1.7-2.3 [facility] Comment on above: Order Comment: Speci men Type: BLOOD SPECIMENOrdering Facility: [facility] Address: [address] [place], [place] [address] Performed By: #### 1 9123-9, 51442-4, 2777-1 ####[facility] [id number] [place] [address] [place] Phosphate SerPl-mCncon 11-27 Phosphate [Mass/Vol] 3.9 mg/dL Normal 2.7-4.8 [facility] Comment on above: Order Comment: Speci men Type: BLOOD SPECIMENOrdering Facility: [facility] Address: [address] [place] [address] Performed By: #### 1 9123-9, 02102-3, 2777-1 ####[facility] [id number] [address] [place] THERAPY NTon 11-27-2022 THERAPY NT Normal [facility] XR CHEST 1V FRONTAL PORTon 0 11-27-2022 XR CHEST 1V FRONTAL PORT Normal [facility] Bacteria Bld Culton 11-26-19 23 Bacteria identified Cx Nom (Bld) Abnormal [facility] Comment on above: Performed By: #### 6 00-7 ####[facility] [id number] [address] [place] Bacteria identified Cx Nom (Bld) ORGANISM ID: 1 Klebsiella (enterobacter) aerogenes Refer to specimen collected on 11/26/2022 1147 ([id number]) GRAM STAIN: Gram negative bacilli Abnormal [facility] Comment on above: Performed By: #### 6 00-7 ####[facility] [id number] [place] [address] [place] CASE MANAGEMon 11-26-2022 CASE MANAGEM Normal [facility] CBC panel Auto (Bld)on 11-26 Erythrocyte distribution width (RBC) [Ratio] 16.9 % High 11.5-15.0 [facility] Comment on above: Order Comment: Speci men Type: BLOOD SPECIMENOrdering Facility: [facility] Address: [address] [place] [address] Performed By: #### 5 8410-2 ####[facility] [id number] [address] [place] Hematocrit (Bld) [Volume fraction] 34.9 % Low 39.0-51.0 [facility] Comment on above: Order Comment: Speci men Type: BLOOD SPECIMENOrdering Facility: [facility] Address: [address] [place], [place] [address] Performed By: #### 5 8410-2 ####[facility] [id number] [place] [address] [place] [facility] Hemoglobin (Bld) [Mass/Vol] 11.1 g/dL Low 13.0-17.0 [facility] Comment on above: Order Comment: Speci men Type: BLOOD SPECIMENOrdering Facility: [facility] Address: [address] [place], [place] [address] Performed By: #### 5 8410-2 ####[facility] [id number] [place] [address] [place] MCH (RBC) [Entitic mass] 28.2 pg Normal 26.0-34.0 [facility] Comment on above: Order Comment: Speci men Type: BLOOD SPECIMENOrdering Facility: [facility] Address: [address] [place], [place] [address] Performed By: #### 5 8410-2 ####[facility] [id number] [address] [place] MCHC (RBC) [Mass/Vol] 31.8 g/dL Normal 30.5-36.0 [facility] Comment on above: Order Comment: Speci men Type: BLOOD SPECIMENOrdering Facility: [facility] Address: [address] [place], [place] [address] Performed By: #### 5 8410-2 ####[facility] [id number] [place] [address] [place] MCV (RBC) [Entitic vol] 88.8 fL Normal 80.0-100.0 [facility] Comment on above: Order Comment: Speci men Type: BLOOD SPECIMENOrdering Facility: [facility] Address: [address] [place], [place] [address] Performed By: #### 5 8410-2 ####[facility] [id number] [place] [address] [place] Nucleated RBC (Bld) [#/Vol] 10*3/uL Normal <0.01 [facility] Comment on above: Order Comment: Speci men Type: BLOOD SPECIMENOrdering Facility: [facility] Address: [address] [place] [address] Performed By: #### 5 8410-2 ####[facility] [id number] [place] [address] [place] Platelet mean volume (Bld) [Entitic vol] 12.2 fL Normal 9.0-12.7 [facility] Comment on above: Order Comment: Speci men Type: BLOOD SPECIMENOrdering Facility: [facility] Address: [address] [place] [address] Performed By: #### 5 8410-2 ####[facility] [id number] [place] [address] [place] Platelets (Bld) [#/Vol] 88 10*3/uL Low 150-400 [facility] Comment on above: Order Comment: Speci men Type: BLOOD SPECIMENOrdering Facility: [facility] Address: [address] [place] [address] Result Comment: Resu lts checked and verified.No clot detected. Performed By: #### 5 8410-2 ####[facility] [id number] [place] [address] [place] RBC (Bld) [#/Vol] 3.93 10*6/uL Low 4.20-6.00 [facility] Comment on above: Order Comment: Speci men Type: BLOOD SPECIMENOrdering Facility: [facility] Address: [address] [place] [address] Performed By: #### 5 8410-2 ####[facility] [id number] [place] [address] [place] WBC (Bld) [#/Vol] 4.71 10*3/uL Normal 3.70-11.00 [facility] Comment on above: Order Comment: Speci men Type: BLOOD SPECIMENOrdering Facility: [facility] Address: [address] [place] [address] Performed By: #### 5 8410-2 ####[facility] [id number] [place] [address] [place] CONSULT PROGon 11-26-2022 CONSULT PROG Normal [facility] CRP SerPl-mCncon 11-26-2022 CRP [Mass/Vol] 17.0 mg/dL High <0.9 [facility] Comment on above: Order Comment: Speci men Type: BLOOD SPECIMENOrdering Facility: [facility] Address: [address] [place] [address] Performed By: #### 2 4323-8, 15590-9, 1988-02 ####[facility] [id number] [place] [address] [place] Comprehensive metabolic 2000 panelon 11-26-2022 Albumin [Mass/Vol] 2.8 g/dL Low 3.9-4.9 [facility] Comment on above: Order Comment: Speci men Type: BLOOD SPECIMENOrdering Facility: [facility] Address: [address] [place], [place] [address] Performed By: #### 2 4323-8, 49694-1, 1988-02 ####[facility] [id number] [place] [address] [place] ALP [Catalytic activity/Vol] 95 U/L Normal 38-113 [facility] Comment on above: Order Comment: Speci men Type: BLOOD SPECIMENOrdering Facility: [facility] Address: [address] [place], [place] [address] Performed By: #### 2 4323-8, 24528-6, 1988-02 ####[facility] [id number] [place] [address] [place] ALT [Catalytic activity/Vol] U/L Low 10-54 [facility] Comment on above: Order Comment: Speci men Type: BLOOD SPECIMENOrdering Facility: [facility] Address: [address] [place], [place] [phone] Result Comment: Resu lt rechecked. Performed By: #### 2 4323-8, 08101-8, 1988-02 ####[facility] [id number] [place] [address] [place] Anion gap [Moles/Vol] 10 mmol/L Normal 9-18 [facility] Comment on above: Order Comment: Speci men Type: BLOOD SPECIMENOrdering Facility: [facility] Address: [address] [place], [place] [address] Performed By: #### 2 4323-8, 30557-1, 1988-02 ####[facility] [id number] [address] [place] AST [Catalytic activity/Vol] 10 U/L Low 14-40 [facility] Comment on above: Order Comment: Speci men Type: BLOOD SPECIMENOrdering Facility: [facility] Address: [address] [place] [address] Performed By: #### 2 4323-8, 12822-7, 1988-02 ####[facility] [id number] [place] [address] [place] Bilirubin [Mass/Vol] 0.4 mg/dL Normal 0.2-1.3 [facility] Comment on above: Order Comment: Speci men Type: BLOOD SPECIMENOrdering Facility: [facility] Address: [address] [place], [place] [address] Performed By: #### 2 4323-8, 12567-5, 1988-02 ####[facility] [id number] [place] [id number] [place] Calcium [Mass/Vol] 8.1 mg/dL Low 8.5-10.2 [facility] Comment on above: Order Comment: Speci men Type: BLOOD SPECIMENOrdering Facility: [facility] Address: [address] [place], [place] [address] Performed By: #### 2 4323-8, 01785-6, 1988-02 ####[facility] [id number] [place] [address] [place] Chloride [Moles/Vol] 108 mmol/L High 97-105 [facility] Comment on above: Order Comment: Speci men Type: BLOOD SPECIMENOrdering Facility: [facility] Address: [address] [place] [address] Performed By: #### 2 4323-8, 49046-7, 1988-02 ####[facility] [id number] [place] [address] [place] CO2 [Moles/Vol] 20 mmol/L Low 22-30 [facility] Comment on above: Order Comment: Speci men Type: BLOOD SPECIMENOrdering Facility: [facility] Address: [address] [place], [place] [address] Performed By: #### 2 4323-8, 45503-5, 1988-02 ####[facility] [id number] [place] [address] [place] Creatinine [Mass/Vol] 1.92 mg/dL High 0.73-1.22 [facility] Comment on above: Order Comment: Speci men Type: BLOOD SPECIMENOrdering Facility: [facility] Address: [address] [place] [address] Performed By: #### 2 4323-8, 38107-0, 1988-02 ####[facility] [id number] [place] [id number] [place] ESTIMATED GLOMERULAR FILTRATION RATE 38 mL/min/1.73m??? Low >=60 [facility] Comment on above: Order Comment: Chaz trevizo Type: BLOOD SPECIMENOrdering Facility: [facility] Address: [address] [place] [address] Result Comment: Karina mated Glomerular Filtration Rate [...] actual GFR. Performed By: #### 2 4323-8, 54800-6, 1988-02 ####[facility] [id number] [place] [address] [place] Glucose [Mass/Vol] 88 mg/dL Normal 74-99 [facility] Comment on above: Order Comment: Chaz trevizo Type: BLOOD SPECIMENOrdering Facility: [facility] Address: [address] [place], [place] [address] Result Comment: The [place] [employer] (ADA) provides guidance for cutoff [...] Standards of Medical Care in Diabetes 2016, [place] [employer]. Diabetes Care. 2016.39(Suppl 1). Performed By: #### 2 4323-8, 66687-5, 1988-02 ####[facility] [id number] [place] [address] [place] Potassium [Moles/Vol] 4.4 mmol/L Normal 3.7-5.1 [facility] Comment on above: Order Comment: Speci men Type: BLOOD SPECIMENOrdering Facility: [facility] Address: [address] [place], [place] [address] Performed By: #### 2 4323-8, 62544-3, 1988-02 ####[facility] [id number] [place] [address] [place] Protein [Mass/Vol] 5.2 g/dL Low 6.3-8.0 [facility] Comment on above: Order Comment: Speci men Type: BLOOD SPECIMENOrdering Facility: [facility] Address: [address] [place] [address] Performed By: #### 2 4323-8, 70315-6, 1988-02 ####[facility] [id number] [place] [address] [place] Sodium [Moles/Vol] 138 mmol/L Normal 136-144 [facility] Comment on above: Order Comment: Speci men Type: BLOOD SPECIMENOrdering Facility: [facility] Address: [address] [place], [place] [address] Performed By: #### 2 4323-8, 55883-1, 1988-02 ####[facility] [id number] [place] [address] [place] Urea nitrogen [Mass/Vol] 44 mg/dL High 9-24 [facility] Comment on above: Order Comment: Speci men Type: BLOOD SPECIMENOrdering Facility: [facility] Address: [address] [place], [place] [phone] Performed By: #### 2 4323-8, 66217-9, 1988-02 ####[facility] [id number] [place] [address] [place] ECG COMPLETEon 11-26-2022 ECG COMPLETE Normal [facility] HISTORY PHYSICALon HISTORY PHYSICAL Normal [facility] MEDICAL EMERon 11-26-2022 MEDICAL KALEB Normal [facility] NURSING PROGon 11-26-2022 NURSING PROG Normal [facility] NUTRITIONon 11-26-2022 NUTRITION Normal [facility] PT panel Coag (PPP)on 2022 INR Coag (PPP) [Relative time] 1.2 {INR} Normal 0.9-1.3 [facility] Comment on above: Order Comment: Speci men Type: BLOOD SPECIMENOrdering Facility: [facility] Address: [place] [address] Result Comment: Bouchra min K Antagonist (VKA) Therapeutic Range: INR 2 to 3 (Target INR of 2.5)Note: For patients treated with VKA drugs, such as warfarin, the [place] [employer] 2012 Guideline recommends [...] al. Chest 2012, 141:7S-47SNishmercy RA, et al. [facility] 2017, 70: 252-289 Performed By: #### 3 4528-0 ####[facility] [id number] [place] [address] [place] PT Coag (PPP) [Time] 12.2 s Normal 9.7-13.0 [facility] Comment on above: Order Comment: Speci men Type: BLOOD SPECIMENOrdering Facility: [facility] Address: [place] [phone] Performed By: #### 3 4528-0 ####[facility] [id number] [place] [address] [place] Procalcitonin SerPl-mCncon 0 2-08-2023 Procalcitonin [Mass/Vol] 11.48 ng/mL High <0.09 [facility] Comment on above: Order Comment: Speci men Type: BLOOD SPECIMENOrdering Facility: [facility] Address: [address] [place] [address] Result Comment: For a guided interpretation of test results, please visit the Change in Procalcitonin Calculator, [email or web address]. Performed By: #### 2 4323-8, 89849-5, 1988-02 ####[facility] [id number] [place] [address] [place] SEPSIS LACTATEon 11-26-2022 Lactate [Moles/Vol] 2.4 mmol/L High <=2.0 [facility] Comment on above: Order Comment: Speci men Type: BLOOD SPECIMENOrdering Facility: [facility] Address: [address] [place] [address] Performed By: #### S LACT ####[facility] [id number] [place] [address] [place] STAPH AUREUS PCRon S. aureus and MRSA panel KELLIE+probe (Nose) Normal Negative [facility] Comment on above: Order Comment: Speci men Type: SWAB OF INTERNAL NOSEOrdering Facility: [facility] Address: [address] [place] [address] Result Comment: Nega tive for Staphylococcus aureus by PCR.Negative for MRSA by PCR Performed By: #### S APCR ####[facility] [id number] [place] [address] [place] THERAPY NTon 11-26-2022 THERAPY NT Normal [facility] THERAPY NT Normal [facility] US KIDNEY/BLADDERon 11-26-19 US KIDNEY/BLADDER Normal [facility] Urinalysis complete pnl Uron 11-26-2022 Urinalysis complete panel (U) Normal [facility] Comment on above: Order Comment: Speci men Type: URINE SPECIMENOrdering Facility: [facility] Address: [address] [place] [address] Performed By: #### 2 4356-8 ####[facility] [id number] [place] [address] [place] XR CHEST 1V FRONTAL PORTon 0 11-26-2022 XR CHEST 1V FRONTAL PORT Normal [facility] CASE MGT INIT ASSESon 2022 CASE MGT INIT ASSES Normal [facility] CBC panel Auto (Bld)on 11-25 Erythrocyte distribution width (RBC) [Ratio] 17.2 % High 11.5-15.0 [facility] Comment on above: Order Comment: Speci men Type: BLOOD SPECIMENOrdering Facility: [facility] Address: [address] [place] [address] Performed By: #### 5 8410-2 ####[facility] [id number] [place] [address] [place] Hematocrit (Bld) [Volume fraction] 36.9 % Low 39.0-51.0 [facility] Comment on above: Order Comment: Speci men Type: BLOOD SPECIMENOrdering Facility: [facility] Address: [address] [place] [address] Performed By: #### 5 8410-2 ####[facility] [id number] [place] [address] [place] Hemoglobin (Bld) [Mass/Vol] 11.6 g/dL Low 13.0-17.0 [facility] Comment on above: Order Comment: Speci men Type: BLOOD SPECIMENOrdering Facility: [facility] Address: [address] [place], [place] [address] Performed By: #### 5 8410-2 ####[facility] [id number] [place] [address] [place] MCH (RBC) [Entitic mass] 27.8 pg Normal 26.0-34.0 [facility] Comment on above: Order Comment: Speci men Type: BLOOD SPECIMENOrdering Facility: [facility] Address: [address] [place] [address] Performed By: #### 5 8410-2 ####[facility] [id number] [place] [address] [place] MCHC (RBC) [Mass/Vol] 31.4 g/dL Normal 30.5-36.0 [facility] Comment on above: Order Comment: Speci men Type: BLOOD SPECIMENOrdering Facility: [facility] Address: [address] [place] [address] Performed By: #### 5 8410-2 ####[facility] [id number] [address] [place] MCV (RBC) [Entitic vol] 88.3 fL Normal 80.0-100.0 [facility] Comment on above: Order Comment: Speci men Type: BLOOD SPECIMENOrdering Facility: [facility] Address: [address] [place] [address] Performed By: #### 5 8410-2 ####[facility] [id number] [address] [place] Nucleated RBC (Bld) [#/Vol] 10*3/uL Normal <0.01 [facility] Comment on above: Order Comment: Speci men Type: BLOOD SPECIMENOrdering Facility: [facility] Address: [address] [place], [place] [address] Performed By: #### 5 8410-2 ####[facility] [id number] [place] [address] [place] Platelet mean volume (Bld) [Entitic vol] 12.0 fL Normal 9.0-12.7 [facility] Comment on above: Order Comment: Speci men Type: BLOOD SPECIMENOrdering Facility: [facility] Address: [address] [place] [address] Performed By: #### 5 8410-2 ####[facility] [id number] [place] [address] [place] Platelets (Bld) [#/Vol] 96 10*3/uL Low 150-400 [facility] Comment on above: Order Comment: Speci men Type: BLOOD SPECIMENOrdering Facility: [facility] Address: [address] [place] [address] Result Comment: No c lot detected. Performed By: #### 5 8410-2 ####[facility] [id number] [place] [address] [place] RBC (Bld) [#/Vol] 4.18 10*6/uL Low 4.20-6.00 [facility] Comment on above: Order Comment: Speci men Type: BLOOD SPECIMENOrdering Facility: [facility] Address: [address] [place] [address] Performed By: #### 5 8410-2 ####[facility] [id number] [place] [address] [place] WBC (Bld) [#/Vol] 5.31 10*3/uL Normal 3.70-11.00 [facility] Comment on above: Order Comment: Speci men Type: BLOOD SPECIMENOrdering Facility: [facility] Address: [address] [place] [address] Performed By: #### 5 8410-2 ####[facility] [id number] [place] [address] [place] CONSULT PROGon 11-25-2022 CONSULT PROG Normal [facility] CONSULT PROG Normal [facility] Comprehensive metabolic 2000 panelon 11-25-2022 Albumin [Mass/Vol] 3.1 g/dL Low 3.9-4.9 [facility] Comment on above: Order Comment: Speci men Type: BLOOD SPECIMENOrdering Facility: [facility] Address: [address] [place] [address] Performed By: #### 2 4323-8 ####[facility] [id number] [place] [address] [place] ALP [Catalytic activity/Vol] 98 U/L Normal 38-113 [facility] Comment on above: Order Comment: Speci men Type: BLOOD SPECIMENOrdering Facility: [facility] Address: [address] [place] [address] Performed By: #### 2 4323-8 ####[facility] [id number] [place] [address] [place] ALT [Catalytic activity/Vol] U/L Low 10-54 [facility] Comment on above: Order Comment: Speci men Type: BLOOD SPECIMENOrdering Facility: [facility] Address: [address] Result Comment: Resu lt rechecked. Performed By: #### 2 4323-8 ####[facility] [id number] [place] [address] [place] Anion gap [Moles/Vol] 9 mmol/L Normal 9-18 [facility] Comment on above: Order Comment: Speci men Type: BLOOD SPECIMENOrdering Facility: [facility] Address: [address] Performed By: #### 2 4323-8 ####[facility] [id number] [place] [address] [place] AST [Catalytic activity/Vol] 8 U/L Low 14-40 [facility] Comment on above: Order Comment: Speci men Type: BLOOD SPECIMENOrdering Facility: [facility] Address: [address] [place] [address] Performed By: #### 2 4323-8 ####[facility] [id number] [place] [address] [place] Bilirubin [Mass/Vol] 0.4 mg/dL Normal 0.2-1.3 [facility] Comment on above: Order Comment: Speci men Type: BLOOD SPECIMENOrdering Facility: [facility] Address: [address] [place] [address] Performed By: #### 2 4323-8 ####[facility] [id number] [place] [address] [place] Calcium [Mass/Vol] 8.4 mg/dL Low 8.5-10.2 [facility] Comment on above: Order Comment: Speci men Type: BLOOD SPECIMENOrdering Facility: [facility] Address: [address] [place] [address] Performed By: #### 2 4323-8 ####[facility] [id number] [place] [address] [place] Chloride [Moles/Vol] 109 mmol/L High 97-105 [facility] Comment on above: Order Comment: Speci men Type: BLOOD SPECIMENOrdering Facility: [facility] Address: [address] [place], [place] [address] Performed By: #### 2 4323-8 ####[facility] [id number] [place] [address] [place] CO2 [Moles/Vol] 22 mmol/L Normal 22-30 [facility] Comment on above: Order Comment: Speci men Type: BLOOD SPECIMENOrdering Facility: [facility] Address: [address] [place], [place] [address] Performed By: #### 2 4323-8 ####[facility] [id number] [place] [address] [place] Creatinine [Mass/Vol] 1.18 mg/dL Normal 0.73-1.22 [facility] Comment on above: Order Comment: Chaz trevizo Type: BLOOD SPECIMENOrdering Facility: [facility] Address: [address] [address] Performed By: #### 2 4323-8 ####[facility] [id number] [place] [address] [place] ESTIMATED GLOMERULAR FILTRATION RATE 69 mL/min/1.73m??? Normal >=60 [facility] Comment on above: Order Comment: Specisatu men Type: BLOOD SPECIMENOrdering Facility: [facility] Address: [address] [address] Result Comment: Karina mated Glomerular Filtration Rate [...] actual GFR. Performed By: #### 2 4323-8 ####[facility] [id number] [place] [address] [place] Glucose [Mass/Vol] 102 mg/dL High 74-99 [facility] Comment on above: Order Comment: Chaz trevizo Type: BLOOD SPECIMENOrdering Facility: [facility] Address: [address] [address] Result Comment: The [place] [employer] (ADA) provides guidance for cutoff [...] Standards of Medical Care in Diabetes 2016, [place] [employer]. Diabetes Care. 2016.39(Suppl 1). Performed By: #### 2 4323-8 ####[facility] [id number] [place] [address] [place] Potassium [Moles/Vol] 4.8 mmol/L Normal 3.7-5.1 [facility] Comment on above: Order Comment: Speci men Type: BLOOD SPECIMENOrdering Facility: [facility] Address: [address] Performed By: #### 2 4323-8 ####[facility] [id number] [place] [address] [place] Protein [Mass/Vol] 5.5 g/dL Low 6.3-8.0 [facility] Comment on above: Order Comment: Speci men Type: BLOOD SPECIMENOrdering Facility: [facility] Address: [address] [place], [place] [address] Performed By: #### 2 4323-8 ####[facility] [id number] [place] [address] [place] Sodium [Moles/Vol] 140 mmol/L Normal 136-144 [facility] Comment on above: Order Comment: Speci men Type: BLOOD SPECIMENOrdering Facility: [facility] Address: [address] [place], [place] [address] Performed By: #### 2 4323-8 ####[facility] [id number] [place] [address] [place] Urea nitrogen [Mass/Vol] 31 mg/dL High 9-24 [facility] Comment on above: Order Comment: Speci men Type: BLOOD SPECIMENOrdering Facility: [facility] Address: [address] [place], [place] [address] Performed By: #### 2 4323-8 ####[facility] [id number] [place] [address] [place] THERAPY NTon 02-07-2023 THERAPY NT Normal [facility] CBC panel Auto (Bld)on 11-24 Erythrocyte distribution width (RBC) [Ratio] 17.2 % High 11.5-15.0 [facility] Comment on above: Order Comment: Speci men Type: BLOOD SPECIMENOrdering Facility: [facility] Address: [address] [place] [address] Performed By: #### 5 8410-2 ####[facility]IA [id number] [address] Hematocrit (Bld) [Volume fraction] 37.8 % Low 39.0-51.0 [facility] Comment on above: Order Comment: Speci men Type: BLOOD SPECIMENOrdering Facility: [facility] Address: [address] [place] [address] Performed By: #### 5 8410-2 ####[facility] [id number] [address] Hemoglobin (Bld) [Mass/Vol] 12.1 g/dL Low 13.0-17.0 [facility] Comment on above: Order Comment: Speci men Type: BLOOD SPECIMENOrdering Facility: [facility] Address: [address] [place] [address] Performed By: #### 5 8410-2 ####[facility] [id number] [address] [place] MCH (RBC) [Entitic mass] 28.4 pg Normal 26.0-34.0 [facility] Comment on above: Order Comment: Speci men Type: BLOOD SPECIMENOrdering Facility: [facility] Address: [address] [place] [address] Performed By: #### 5 8410-2 ####[facility] [id number] [address] [place] MCHC (RBC) [Mass/Vol] 32.0 g/dL Normal 30.5-36.0 [facility] Comment on above: Order Comment: Speci men Type: BLOOD SPECIMENOrdering Facility: [facility] Address: [address] [place], [place] [address] Performed By: #### 5 8410-2 ####[facility] [id number] [address] [place] MCV (RBC) [Entitic vol] 88.7 fL Normal 80.0-100.0 [facility] Comment on above: Order Comment: Speci men Type: BLOOD SPECIMENOrdering Facility: [facility] Address: [address] [place] [address] Performed By: #### 5 8410-2 ####[facility] [id number] [place] [address] [place] Nucleated RBC (Bld) [#/Vol] 10*3/uL Normal <0.01 [facility] Comment on above: Order Comment: Speci men Type: BLOOD SPECIMENOrdering Facility: [facility] Address: [address] [place], [place] [address] Performed By: #### 5 8410-2 ####[facility] [id number] [place] [address] [place] Platelet mean volume (Bld) [Entitic vol] 12.2 fL Normal 9.0-12.7 [facility] Comment on above: Order Comment: Speci men Type: BLOOD SPECIMENOrdering Facility: [facility] Address: [address] [place], [place] [address] Performed By: #### 5 8410-2 ####[facility] [id number] [place] [address] [place] Platelets (Bld) [#/Vol] 111 10*3/uL Low 150-400 [facility] Comment on above: Order Comment: Speci men Type: BLOOD SPECIMENOrdering Facility: [facility] Address: [address] [place] [address] Performed By: #### 5 8410-2 ####[facility] [id number] [place] [address] [place] RBC (Bld) [#/Vol] 4.26 10*6/uL Normal 4.20-6.00 [facility] Comment on above: Order Comment: Speci men Type: BLOOD SPECIMENOrdering Facility: [facility] Address: [address] Performed By: #### 5 8410-2 ####[facility] [id number] [place] [address] [place] WBC (Bld) [#/Vol] 4.79 10*3/uL Normal 3.70-11.00 [facility] Comment on above: Order Comment: Speci men Type: BLOOD SPECIMENOrdering Facility: [facility] Address: [address] [place] [address] Performed By: #### 5 8410-2 ####[facility] [id number] [place] [address] [place] CONSULTon 11-24-2022 CONSULT Normal [facility] CONSULT Normal [facility] CONSULT PROGon 11-24-2022 CONSULT PROG Normal [facility] Comprehensive metabolic 2000 panelon 11-24-2022 Albumin [Mass/Vol] 3.3 g/dL Low 3.9-4.9 [facility] Comment on above: Order Comment: Speci men Type: BLOOD SPECIMENOrdering Facility: [facility] Address: [address] [place] [address] Performed By: #### 1 9123-9, 2777-1, 10781-7 ####[facility] [id number] [place] [address] [place] ALP [Catalytic activity/Vol] 91 U/L Normal 38-113 [facility] Comment on above: Order Comment: Speci men Type: BLOOD SPECIMENOrdering Facility: [facility] Address: [address] Performed By: #### 1 9123-9, 2776-10, ####[facility] [id number] [place] [address] [place] ALT [Catalytic activity/Vol] U/L Low 10-54 [facility] Comment on above: Order Comment: Speci men Type: BLOOD SPECIMENOrdering Facility: [facility] Address: [address] [address] Result Comment: Resu lt rechecked. Performed By: #### 1 9123-9, 2776-10, ####[facility] [id number] [place] [address] [place] Anion gap [Moles/Vol] 8 mmol/L Low 9-18 [facility] Comment on above: Order Comment: Speci men Type: BLOOD SPECIMENOrdering Facility: [facility] Address: [address] Performed By: #### 1 9123-9, 2776-10, ####[facility] [id number] [place] [address] [place] AST [Catalytic activity/Vol] 9 U/L Low 14-40 [facility] Comment on above: Order Comment: Speci men Type: BLOOD SPECIMENOrdering Facility: [facility] Address: [address] Performed By: #### 1 9123-9, 2776-10, ####[facility] [id number] [place] [address] [place] Bilirubin [Mass/Vol] 0.2 mg/dL Normal 0.2-1.3 [facility] Comment on above: Order Comment: Speci men Type: BLOOD SPECIMENOrdering Facility: [facility] Address: [address] [address] Performed By: #### 1 9123-9, 27704-18, ####[facility] [id number] [place] [address] [place] Calcium [Mass/Vol] 8.3 mg/dL Low 8.5-10.2 [facility] Comment on above: Order Comment: Speci men Type: BLOOD SPECIMENOrdering Facility: [facility] Address: [address] [address] Performed By: #### 1 9123-9, 27704-18, ####[facility] [id number] [place] [address] [place] Chloride [Moles/Vol] 110 mmol/L High 97-105 [facility] Comment on above: Order Comment: Speci men Type: BLOOD SPECIMENOrdering Facility: [facility] Address: [address] [place] [address] Performed By: #### 1 9123-9, 27704-18, ####[facility] [id number] [place] [address] [place] CO2 [Moles/Vol] 24 mmol/L Normal 22-30 [facility] Comment on above: Order Comment: Speci men Type: BLOOD SPECIMENOrdering Facility: [facility] Address: [address] Performed By: #### 1 9123-9, 2776-10, ####[facility] [id number] [place] [address] [place] Creatinine [Mass/Vol] 0.94 mg/dL Normal 0.73-1.22 [facility] Comment on above: Order Comment: Speci men Type: BLOOD SPECIMENOrdering Facility: [facility] Address: [address] [id number] Performed By: #### 1 9123-9, 2777-1, 26374-0 ####[facility] [id number] [place] [address] [place] ESTIMATED GLOMERULAR FILTRATION RATE 91 mL/min/1.73m??? Normal >=60 [facility] Comment on above: Order Comment: Chaz trevizo Type: BLOOD SPECIMENOrdering Facility: [facility] Address: [address] [address] Result Comment: Karina mated Glomerular Filtration Rate [...] GFR. Performed By: #### 1 9123-9, 2777-, 12063-3 ####[facility] [id number] [place] [address] [place] Glucose [Mass/Vol] 68 mg/dL Low 74-99 [facility] Comment on above: Order Comment: Chaz trevizo Type: BLOOD SPECIMENOrdering Facility: [facility] Address: [address] [address] Result Comment: The [place] [employer] (ADA) provides guidance for cutoff [...] Standards of Medical Care in Diabetes 2016, [place] [employer]. Diabetes Care. 2016.39(Suppl 1). Performed By: #### 1 9123-9, 27704-18, 31086-3 ####[facility] [id number] [place] [address] [place] Potassium [Moles/Vol] 4.1 mmol/L Normal 3.7-5.1 [facility] Comment on above: Order Comment: Speci men Type: BLOOD SPECIMENOrdering Facility: [facility] Address: [address] Performed By: #### 1 9123-9, 2776-10, 97732-5 ####[facility] [id number] [place] [address] [place] Protein [Mass/Vol] 5.7 g/dL Low 6.3-8.0 [facility] Comment on above: Order Comment: Speci men Type: BLOOD SPECIMENOrdering Facility: [facility] Address: [address] [address] Performed By: #### 1 9123-9, 2776-10, 22842-7 ####[facility] [id number] [place] [address] [place] Sodium [Moles/Vol] 142 mmol/L Normal 136-144 [facility] Comment on above: Order Comment: Speci men Type: BLOOD SPECIMENOrdering Facility: [facility] Address: [address] [place] [address] Performed By: #### 1 9123-9, 2776-10, 66339-5 ####[facility] [id number] [address] [address] [place] Urea nitrogen [Mass/Vol] 22 mg/dL Normal 9-24 [facility] Comment on above: Order Comment: Speci men Type: BLOOD SPECIMENOrdering Facility: [facility] Address: [address] Performed By: #### 1 9123-9, 27704-18, 60613-5 ####[facility] [id number] [place] [address] [place] [facility] [place] Magnesium [facility] Magnesium [Mass/Vol] 2.2 mg/dL Normal 1.7-2.3 [facility] Comment on above: Order Comment: Speci men Type: BLOOD SPECIMENOrdering Facility: [facility] Address: [address] [place] [address] Performed By: #### 1 9123-9, 27704-18, 22015-8 ####[facility] [id number] [place] [address] [place] Phosphate SerPl-mCncon 11-24 Phosphate [Mass/Vol] 3.3 mg/dL Normal 2.7-4.8 [facility] Comment on above: Order Comment: Speci men Type: BLOOD SPECIMENOrdering Facility: [facility] Address: [address] [place] [address] Performed By: #### 1 9123-9, 2777, ####[facility] [id number] [address] [place] CBC panel Auto (Bld)on 11-23 Erythrocyte distribution width (RBC) [Ratio] 16.8 % High 11.5-15.0 [facility] Comment on above: Order Comment: Speci men Type: BLOOD SPECIMENOrdering Facility: [facility] Address: [address] [place] [address] Performed By: #### 5 8410-2 ####[facility] [id number] [place] [address] [place] Hematocrit (Bld) [Volume fraction] 35.7 % Low 39.0-51.0 [facility] Comment on above: Order Comment: Speci men Type: BLOOD SPECIMENOrdering Facility: [facility] Address: [address] Performed By: #### 5 8410-2 ####[facility] [id number] [place] [address] [place] Hemoglobin (Bld) [Mass/Vol] 11.3 g/dL Low 13.0-17.0 [facility] Comment on above: Order Comment: Speci men Type: BLOOD SPECIMENOrdering Facility: [facility] Address: [address] Performed By: #### 5 8410-2 ####[facility] [id number] [address] [place] MCH (RBC) [Entitic mass] 27.9 pg Normal 26.0-34.0 [facility] Comment on above: Order Comment: Speci men Type: BLOOD SPECIMENOrdering Facility: [facility] Address: [address] Performed By: #### 5 8410-2 ####[facility] [id number] [address] [place] MCHC (RBC) [Mass/Vol] 31.7 g/dL Normal 30.5-36.0 [facility] Comment on above: Order Comment: Speci men Type: BLOOD SPECIMENOrdering Facility: [facility] Address: [address] Performed By: #### 5 8410-2 ####[facility] [id number] [place] [address] [place] MCV (RBC) [Entitic vol] 88.1 fL Normal 80.0-100.0 [facility] Comment on above: Order Comment: Speci men Type: BLOOD SPECIMENOrdering Facility: [facility] Address: [address] Performed By: #### 5 8410-2 ####[facility] [id number] [place] [address] [place] Nucleated RBC (Bld) [#/Vol] 10*3/uL Normal <0.01 [facility] Comment on above: Order Comment: Speci men Type: BLOOD SPECIMENOrdering Facility: [facility] Address: [address] [place] [address] Performed By: #### 5 8410-2 ####[facility] [id number] [place] [address] [place] Platelet mean volume (Bld) [Entitic vol] 12.7 fL Normal 9.0-12.7 [facility] Comment on above: Order Comment: Speci men Type: BLOOD SPECIMENOrdering Facility: [facility] Address: [address] [place] [address] Performed By: #### 5 8410-2 ####[facility] [id number] [place] [address] [place] Platelets (Bld) [#/Vol] 106 10*3/uL Low 150-400 [facility] Comment on above: Order Comment: Speci men Type: BLOOD SPECIMENOrdering Facility: [facility] Address: [address] [place], [place] [address] Performed By: #### 5 8410-2 ####[facility] [id number] [place] [address] [place] RBC (Bld) [#/Vol] 4.05 10*6/uL Low 4.20-6.00 [facility] Comment on above: Order Comment: Speci men Type: BLOOD SPECIMENOrdering Facility: [facility] Address: [address] [place], [place] [address] Performed By: #### 5 8410-2 ####[facility] [id number] [place] [address] [place] WBC (Bld) [#/Vol] 2.81 10*3/uL Low 3.70-11.00 [facility] Comment on above: Order Comment: Speci men Type: BLOOD SPECIMENOrdering Facility: [facility] Address: [address] [place] [address] Performed By: #### 5 8410-2 ####[facility] [id number] [place] [address] [place] [facility] Comprehensive metabolic 2000 panelon 11-23-2022 Albumin [Mass/Vol] 3.2 g/dL Low 3.9-4.9 [facility] Comment on above: Order Comment: Speci men Type: BLOOD SPECIMENOrdering Facility: [facility] Address: [address] [place] [address] Performed By: #### 1 9123-9, 2777-1, 37962-7 ####[facility] [id number] [place] [address] [place] ALP [Catalytic activity/Vol] 84 U/L Normal 38-113 [facility] Comment on above: Order Comment: Speci men Type: BLOOD SPECIMENOrdering Facility: [facility] Address: [address] [place], [place] [address] Performed By: #### 1 9123-9, 2777-, 05695-0 ####[facility] [id number] [place] [address] [place] ALT [Catalytic activity/Vol] U/L Low 10-54 [facility] Comment on above: Order Comment: Speci men Type: BLOOD SPECIMENOrdering Facility: [facility] Address: [address] [place], [place] [address] Performed By: #### 1 9123-9, 2777-, 55964-6 ####[facility] [id number] [place] [address] [place] Anion gap [Moles/Vol] 10 mmol/L Normal 9-18 [facility] Comment on above: Order Comment: Speci men Type: BLOOD SPECIMENOrdering Facility: [facility] Address: [address] [address] Performed By: #### 1 9123-9, 2776-10, ####[facility] [id number] [place] [address] [place] AST [Catalytic activity/Vol] 13 U/L Low 14-40 [facility] Comment on above: Order Comment: Speci men Type: BLOOD SPECIMENOrdering Facility: [facility] Address: [address] [place] [address] Performed By: #### 1 9123-9, 27704-18, ####[facility] [id number] [place] [address] [place] Bilirubin [Mass/Vol] 0.2 mg/dL Normal 0.2-1.3 [facility] Comment on above: Order Comment: Speci men Type: BLOOD SPECIMENOrdering Facility: [facility] Address: [address] [place] [address] Performed By: #### 1 9123-9, 2776-10, ####[facility] [id number] [place] [address] [place] Calcium [Mass/Vol] 8.3 mg/dL Low 8.5-10.2 [facility] Comment on above: Order Comment: Speci men Type: BLOOD SPECIMENOrdering Facility: [facility] Address: [address] Performed By: #### 1 9123-9, 27704-18, ####[facility] [id number] [place] [address] [place] Chloride [Moles/Vol] 112 mmol/L High 97-105 [facility] Comment on above: Order Comment: Speci men Type: BLOOD SPECIMENOrdering Facility: [facility] Address: [address] Performed By: #### 1 9123-9, 2776-10, ####[facility] [id number] [place] [address] [place] CO2 [Moles/Vol] 21 mmol/L Low 22-30 [facility] Comment on above: Order Comment: Speci men Type: BLOOD SPECIMENOrdering Facility: [facility] Address: [address] [place] [address] Performed By: #### 1 9123-9, 2776-10, ####[facility] [id number] [place] [address] [place] Creatinine [Mass/Vol] 0.84 mg/dL Normal 0.73-1.22 [facility] Comment on above: Order Comment: Speci men Type: BLOOD SPECIMENOrdering Facility: [facility] Address: [address] [place] [address] Performed By: #### 1 9123-9, 2776-10, ####[facility] [id number] [place] [address] [place] ESTIMATED GLOMERULAR FILTRATION RATE 97 mL/min/1.73m??? Normal >=60 [facility] Comment on above: Order Comment: Speci men Type: BLOOD SPECIMENOrdering Facility: [facility] Address: [address] [place] [address] Result Comment: Karina mated Glomerular Filtration Rate [...] GFR. Performed By: #### 1 9123-9, 27704-18, ####[facility] [id number] [place] [address] [place] Glucose [Mass/Vol] 102 mg/dL High 74-99 [facility] Comment on above: Order Comment: Speci men Type: BLOOD SPECIMENOrdering Facility: [facility] Address: [address] [place] [address] Result Comment: The [place] [employer] (ADA) provides guidance for cutoff [...] Standards of Medical Care in Diabetes 2016, [place] [employer]. Diabetes Care. 2016.39(Suppl 1). Performed By: #### 1 9123-9, 2777-1, 62622-0 ####[facility] [id number] [place] [address] [place] Potassium [Moles/Vol] 4.3 mmol/L Normal 3.7-5.1 [facility] Comment on above: Order Comment: Speci men Type: BLOOD SPECIMENOrdering Facility: [facility] Address: [address] [place], [place] [address] Performed By: #### 1 9123-9, 2777-1, 63390-0 ####[facility] [id number] [place] [id number] [place] Protein [Mass/Vol] 5.3 g/dL Low 6.3-8.0 [facility] Comment on above: Order Comment: Speci men Type: BLOOD SPECIMENOrdering Facility: [facility] Address: [address] [place] [address] Performed By: #### 1 9123-9, 2777-1, 40742-9 ####[facility] [id number] [place] [address] [place] Sodium [Moles/Vol] 143 mmol/L Normal 136-144 [facility] Comment on above: Order Comment: Speci men Type: BLOOD SPECIMENOrdering Facility: [facility] Address: [address] [place] [address] Performed By: #### 1 9123-9, 2777-1, 92576-3 ####[facility] [id number] [place] [address] [place] Urea nitrogen [Mass/Vol] 21 mg/dL Normal 9-24 [facility] Comment on above: Order Comment: Speci men Type: BLOOD SPECIMENOrdering Facility: [facility] Address: [address] [place] [address] Performed By: #### 1 9123-9, 2777-, 70368-1 ####[facility] [id number] [place] [address] [place] Magnesium SerPl-mCncon 11-23 Magnesium [Mass/Vol] 2.0 mg/dL Normal 1.7-2.3 [facility] Comment on above: Order Comment: Speci men Type: BLOOD SPECIMENOrdering Facility: [facility] Address: [address] [place] [address] Performed By: #### 1 9123-9, 2777-, 38361-1 ####[facility] [id number] [place] [address] [place] Phosphate SerPl-mCncon 11-23 Phosphate [Mass/Vol] 2.8 mg/dL Normal 2.7-4.8 [facility] Comment on above: Order Comment: Speci men Type: BLOOD SPECIMENOrdering Facility: [facility] Address: [address] Performed By: #### 1 9123-9, 2777-1, 90172-9 ####[facility] [id number] [place] [address] [place] THERAPY NTon 11-23-2022 THERAPY NT Normal [facility] CBC panel Auto (Bld)on 11-22 Erythrocyte distribution width (RBC) [Ratio] 16.4 % High 11.5-15.0 [facility] Comment on above: Order Comment: Speci men Type: BLOOD SPECIMENOrdering Facility: [facility] Address: [address] [place] [address] Performed By: #### 5 8410-2 ####[facility] [id number] [address] [place] Hematocrit (Bld) [Volume fraction] 36.4 % Low 39.0-51.0 [facility] Comment on above: Order Comment: Speci men Type: BLOOD SPECIMENOrdering Facility: [facility] Address: [address] [address] Performed By: #### 5 8410-2 ####[facility] [id number] [address] [place] Hemoglobin (Bld) [Mass/Vol] 11.6 g/dL Low 13.0-17.0 [facility] Comment on above: Order Comment: Speci men Type: BLOOD SPECIMENOrdering Facility: [facility] Address: [address] [address] Performed By: #### 5 8410-2 ####[facility] [id number] [place] [address] [place] MCH (RBC) [Entitic mass] 28.2 pg Normal 26.0-34.0 [facility] Comment on above: Order Comment: Speci men Type: BLOOD SPECIMENOrdering Facility: [facility] Address: [address] [place] [address] Performed By: #### 5 8410-2 ####[facility] [id number] [address] STATES [facility] MCHC (RBC) [Mass/Vol] 31.9 g/dL Normal 30.5-36.0 [facility] Comment on above: Order Comment: Speci men Type: BLOOD SPECIMENOrdering Facility: [facility] Address: [address] Performed By: #### 5 8410-2 ####[facility] [id number] [place] [address] [place] MCV (RBC) [Entitic vol] 88.6 fL Normal 80.0-100.0 [facility] Comment on above: Order Comment: Speci men Type: BLOOD SPECIMENOrdering Facility: [facility] Address: [address] Performed By: #### 5 8410-2 ####[facility] [id number] [place] [address] [place] Nucleated RBC (Bld) [#/Vol] 10*3/uL Normal <0.01 [facility] Comment on above: Order Comment: Speci men Type: BLOOD SPECIMENOrdering Facility: [facility] Address: [address] [place] [address] Performed By: #### 5 8410-2 ####[facility] [id number] [address] [place] Platelet mean volume (Bld) [Entitic vol] 12.5 fL Normal 9.0-12.7 [facility] Comment on above: Order Comment: Speci men Type: BLOOD SPECIMENOrdering Facility: [facility] Address: [address] Performed By: #### 5 8410-2 ####[facility] [id number] [place] [address] [place] Platelets (Bld) [#/Vol] 115 10*3/uL Low 150-400 [facility] Comment on above: Order Comment: Speci men Type: BLOOD SPECIMENOrdering Facility: [facility] Address: [address] [place] [address] Performed By: #### 5 8410-2 ####[facility] [id number] [place] [address] [place] RBC (Bld) [#/Vol] 4.11 10*6/uL Low 4.20-6.00 [facility] Comment on above: Order Comment: Speci men Type: BLOOD SPECIMENOrdering Facility: [facility] Address: [address] [place] [address] Performed By: #### 5 8410-2 ####[facility] [id number] [place] [address] [place] WBC (Bld) [#/Vol] 2.29 10*3/uL Low 3.70-11.00 [facility] Comment on above: Order Comment: Speci men Type: BLOOD SPECIMENOrdering Facility: [facility] Address: [address] [place] [address] Performed By: #### 5 8410-2 ####[facility] [id number] [place] [address] [place] CK SerPl-cCncon 11-22-2022 CK [Catalytic activity/Vol] 27 U/L Low 51-298 [facility] Comment on above: Order Comment: Speci men Type: BLOOD SPECIMENOrdering Facility: [facility] Address: [address] [place] [address] Performed By: #### 1 9123-9, 61466-5, 2157-6, 2777-1 ####[facility] [id number] [place] [address] [place] Comprehensive metabolic 2000 panelon 11-22-2022 Albumin [Mass/Vol] 3.4 g/dL Low 3.9-4.9 [facility] Comment on above: Order Comment: Speci men Type: BLOOD SPECIMENOrdering Facility: [facility] Address: [address] [place] [address] Performed By: #### 1 9123-9, 19785-5, 2157-03, 2776- ####[facility] [id number] [place] [address] [place] ALP [Catalytic activity/Vol] 79 U/L Normal 38-113 [facility] Comment on above: Order Comment: Speci men Type: BLOOD SPECIMENOrdering Facility: [facility] Address: [address] [place] [address] Performed By: #### 1 9123-9, 99947-3, 2157-03, 2776- ####[facility] [id number] [address] [place] ALT [Catalytic activity/Vol] U/L Low 10-54 [facility] Comment on above: Order Comment: Speci men Type: BLOOD SPECIMENOrdering Facility: [facility] Address: [address] [place] [address] Result Comment: Resu lt rechecked. Performed By: #### 1 9123-9, 91558-5, 2157-03, 2776- ####[facility] [id number] [place] [address] [place] Anion gap [Moles/Vol] 10 mmol/L Normal 9-18 [facility] Comment on above: Order Comment: Speci men Type: BLOOD SPECIMENOrdering Facility: [facility] Address: [address] [place] [address] Performed By: #### 1 9123-9, 25382-3, 2157-03, 2776- ####[facility] [id number] [place] [address] [place] AST [Catalytic activity/Vol] 11 U/L Low 14-40 [facility] Comment on above: Order Comment: Speci men Type: BLOOD SPECIMENOrdering Facility: [facility] Address: [address] [place] [address] Performed By: #### 1 9123-9, 61800-1, 2157-03, 2776-10 ####[facility] [id number] [place] [address] [place] Bilirubin [Mass/Vol] mg/dL Low 0.2-1.3 [facility] Comment on above: Order Comment: Speci men Type: BLOOD SPECIMENOrdering Facility: [facility] Address: [address] [place] [address] Performed By: #### 1 9123-9, 35534-3, 2157-03, 2776-10 ####[facility] [id number] [place] [address] [place] Calcium [Mass/Vol] 8.7 mg/dL Normal 8.5-10.2 [facility] Comment on above: Order Comment: Speci men Type: BLOOD SPECIMENOrdering Facility: [facility] Address: [address] [place] [address] Performed By: #### 1 9123-9, 62859-0, 2157-03, 2776-10 ####[facility] [id number] [place] [address] [place] Chloride [Moles/Vol] 109 mmol/L High 97-105 [facility] Comment on above: Order Comment: Speci men Type: BLOOD SPECIMENOrdering Facility: [facility] Address: [address] [place] [address] Performed By: #### 1 9123-9, 34401-3, 2157-03, 2776-1 ####[facility] [id number] [place] [address] [place] CO2 [Moles/Vol] 23 mmol/L Normal 22-30 [facility] Comment on above: Order Comment: Speci men Type: BLOOD SPECIMENOrdering Facility: [facility] Address: [address] [place] [address] Performed By: #### 1 9123-9, 61141-5, 2157-03, 2776-10 ####[facility] [id number] [place] [address] [place] Creatinine [Mass/Vol] 0.95 mg/dL Normal 0.73-1.22 [facility] Comment on above: Order Comment: Speci men Type: BLOOD SPECIMENOrdering Facility: [facility] Address: [address] [place] [address] Performed By: #### 1 9123-9, 23078-0, 2157-03, 2776-10 ####[facility] [id number] [place] [address] [place] ESTIMATED GLOMERULAR FILTRATION RATE 89 mL/min/1.73m??? Normal >=60 [facility] Comment on above: Order Comment: Speci men Type: BLOOD SPECIMENOrdering Facility: [facility] Address: [address] [place] [address] Result Comment: Karina mated Glomerular Filtration Rate [...] actual GFR. Performed By: #### 1 9123-9, 41543-8, 2157-03, 2776- ####[facility] [id number] [place] [address] [place] Glucose [Mass/Vol] 101 mg/dL High 74-99 [facility] Comment on above: Order Comment: Speci men Type: BLOOD SPECIMENOrdering Facility: [facility] Address: [address] [place], [place] [address] Result Comment: The [place] [employer] (ADA) provides guidance for cutoff [...] Standards of Medical Care in Diabetes 2016, [place] [employer]. Diabetes Care. 2016.39(Suppl 1). Performed By: #### 1 9123-9, 69557-0, 2157-03, 2776-10 ####[facility] [id number] [place] [address] [place] Potassium [Moles/Vol] 3.9 mmol/L Normal 3.7-5.1 [facility] Comment on above: Order Comment: Speci men Type: BLOOD SPECIMENOrdering Facility: [facility] Address: [address] [place], [place] [address] Performed By: #### 1 9123-9, 04858-5, 2157-03, 2776-10 ####[facility] [id number] [place] [address] [place] Protein [Mass/Vol] 5.4 g/dL Low 6.3-8.0 [facility] Comment on above: Order Comment: Speci men Type: BLOOD SPECIMENOrdering Facility: [facility] Address: [address] [place], [place] [address] Performed By: #### 1 9123-9, 78256-4, 2157-03, 2777-1 ####[facility] [id number] [place] [address] [place] Sodium [Moles/Vol] 142 mmol/L Normal 136-144 [facility] Comment on above: Order Comment: Speci men Type: BLOOD SPECIMENOrdering Facility: [facility] Address: [address] [place] [address] Performed By: #### 1 9123-9, 02592-5, 2157-03, 2776- ####[facility] [id number] [place] [address] [place] Urea nitrogen [Mass/Vol] 19 mg/dL Normal 9-24 [facility] Comment on above: Order Comment: Speci men Type: BLOOD SPECIMENOrdering Facility: [facility] Address: [address] [place] [address] Performed By: #### 1 9123-9, 56092-6, 2157-03, 2776-10 ####[facility] [id number] [place] [address] [place] Magnesium SerPl-mCncon 11-22 Magnesium [Mass/Vol] 2.2 mg/dL Normal 1.7-2.3 [facility] Comment on above: Order Comment: Speci men Type: BLOOD SPECIMENOrdering Facility: [facility] Address: [address] [place] [address] Performed By: #### 1 9123-9, 22149-0, 2157-03, 2776-10 ####[facility] [id number] [place] [address] [place] PT panel Coag (PPP)on 2022 INR Coag (PPP) [Relative time] 1.0 {INR} Normal 0.9-1.3 [facility] Comment on above: Order Comment: Speci men Type: BLOOD SPECIMENOrdering Facility: [facility] Address: [address] [place] [address] Result Comment: Bouchra min K Antagonist (VKA) Therapeutic Range: INR 2 to 3 (Target INR of 2.5)Note: For patients treated with VKA drugs, such as warfarin, the [place] [employer] 2012 Guideline recommends [...] 3).Mukesh JENKINS, et al. Chest 2012, 141:7S-47SAlma RA, et al. [facility] 2017, 70: 252-289 Performed By: #### 3 4528-0 ####[facility] [id number] [place] [address] [place] PT Coag (PPP) [Time] 10.1 s Normal 9.7-13.0 [facility] Comment on above: Order Comment: Speci men Type: BLOOD SPECIMENOrdering Facility: [facility] Address: [address] [address] Performed By: #### 3 4528-0 ####[facility] [id number] [place] [address] [place] Phosphate SerPl-mCncon 11-22 Phosphate [Mass/Vol] 3.5 mg/dL Normal 2.7-4.8 [facility] Comment on above: Order Comment: Speci men Type: BLOOD SPECIMENOrdering Facility: [facility] Address: [address] [place] [address] Performed By: #### 1 9123-9, 93640-1, 2157-6, 2777-1 ####[facility] [id number] [place] [address] [place] THERAPY NTon 11-22-2022 THERAPY NT Normal [facility] ALLIED HEALTHon 11-21-2022 ALLIED HEALTH Normal [facility] ALLIED HEALTH Normal [facility] CONSULTon 11-21-2022 CONSULT Normal [facility] CONSULT PROGon 11-21-2022 CONSULT PROG Normal [facility] NUTRITIONon 11-21-2022 NUTRITION Normal [facility] THERAPY NTon 11-21-2022 THERAPY NT Normal [facility] 25(OH)D3 SerPl-mCncon 2022 25-hydroxyvitamin D3 [Mass/Vol] 15.0 ng/mL Low 31.0-80.0 [facility] Comment on above: Order Comment: Speci men Type: BLOOD SPECIMENOrdering Facility: [facility] Address: [address] [place] [address] Result Comment: Clas sification of 25 [place] Vitamin D status:Deficiency/Insufficiency: < or = 30 ng/ml.Sufficiency/Optimal Levels: 31-80 ng/mLToxicity: > 100 ng/mL.Test performed by chemiluminescent immunoassay. Performed By: #### 1 989-3 ####[facility] [id number] [place] [address] [place] CBC W Auto Differential pane l (Bld)on 11-20-2022 Basophils (Bld) [#/Vol] 10*3/uL Normal <0.11 [facility] Comment on above: Order Comment: Speci men Type: BLOOD SPECIMENOrdering Facility: [facility] Address: [address] [place] [address] Performed By: #### 5 8410-2, 54973-5, 82809-3 ####[facility] [id number] [place] [address] [place] Basophils/100 WBC (Bld) 0.2 % Normal [facility] Comment on above: Order Comment: Speci men Type: BLOOD SPECIMENOrdering Facility: [facility] Address: [address] Performed By: #### 5 8410-2, 36499-4, 77760-9 ####[facility] [id number] [place] [address] [place] Eosinophils (Bld) [#/Vol] 0.08 10*3/uL Normal <0.46 [facility] Comment on above: Order Comment: Speci men Type: BLOOD SPECIMENOrdering Facility: [facility] Address: [address] Performed By: #### 5 8410-2, 79210-1, 35117-9 ####[facility] [id number] [place] [address] [place] Eosinophils/100 WBC (Bld) 1.8 % Normal [facility] Comment on above: Order Comment: Speci men Type: BLOOD SPECIMENOrdering Facility: [facility] Address: [address] Performed By: #### 5 8410-2, 16315-7, 36259-2 ####[facility] [id number] [place] [address] [place] Immature granulocytes (Bld) [#/Vol] 0.03 10*3/uL Normal <0.10 [facility] Comment on above: Order Comment: Speci men Type: BLOOD SPECIMENOrdering Facility: [facility] Address: [address] Performed By: #### 5 8410-2, 15922-2, 62918-1 ####[facility] [id number] [place] [address] [place] Immature granulocytes/100 WBC (Bld) 0.7 % Normal [facility] Comment on above: Order Comment: Speci men Type: BLOOD SPECIMENOrdering Facility: [facility] Address: [address] Performed By: #### 5 8410-2, 76457-0, 86743-5 ####[facility] [id number] [place] [address] [place] Lymphocytes (Bld) [#/Vol] 0.74 10*3/uL Low 1.00-4.00 [facility] Comment on above: Order Comment: Speci men Type: BLOOD SPECIMENOrdering Facility: [facility] Address: [address] Performed By: #### 5 8410-2, 71334-7, 72043-7 ####[facility] [id number] [address] [place] Lymphocytes/100 WBC (Bld) 16.4 % Normal [facility] Comment on above: Order Comment: Speci men Type: BLOOD SPECIMENOrdering Facility: [facility] Address: [address] [place], [place] [address] Performed By: #### 5 8410-2, 85055-5, 08690-6 ####[facility] [id number] [place] [address] [place] Monocytes (Bld) [#/Vol] 0.53 10*3/uL Normal <0.87 [facility] Comment on above: Order Comment: Speci men Type: BLOOD SPECIMENOrdering Facility: [facility] Address: [address] [place] [address] Performed By: #### 5 8410-2, 73995-9, 10460-6 ####[facility] [id number] [address] [place] Monocytes/100 WBC (Bld) 11.8 % Normal [facility] Comment on above: Order Comment: Speci men Type: BLOOD SPECIMENOrdering Facility: [facility] Address: [address] [place], [place] [address] Performed By: #### 5 8410-2, 86159-2, 51705-4 ####[facility] [id number] [place] [address] [place] Neutrophils (Bld) [#/Vol] 3.11 10*3/uL Normal 1.45-7.50 [facility] Comment on above: Order Comment: Speci men Type: BLOOD SPECIMENOrdering Facility: [facility] Address: [address] [place] [address] Performed By: #### 5 8410-2, 66679-6, 14890-8 ####[facility] [id number] [place] [address] [place] Neutrophils/100 WBC (Bld) 69.1 % Normal [facility] Comment on above: Order Comment: Speci men Type: BLOOD SPECIMENOrdering Facility: [facility] Address: [address] [place] [address] Performed By: #### 5 8410-2, 07784-0, 13825-2 ####[facility] [id number] [place] [address] [place] CBC panel Auto (Bld)on 11-20 Erythrocyte distribution width (RBC) [Ratio] 15.9 % High 11.5-15.0 [facility] Comment on above: Order Comment: Speci men Type: BLOOD SPECIMENOrdering Facility: [facility] Address: [address] [place], [place] [address] Performed By: #### 5 8410-2, 00500-4, 32170-0 ####[facility] [id number] [place] [address] [place] Hematocrit (Bld) [Volume fraction] 39.8 % Normal 39.0-51.0 [facility] Comment on above: Order Comment: Speci men Type: BLOOD SPECIMENOrdering Facility: [facility] Address: [address] [place] [address] Performed By: #### 5 8410-2, 74598-7, 08005-7 ####[facility] [id number] [place] [address] [place] Hemoglobin (Bld) [Mass/Vol] 12.5 g/dL Low 13.0-17.0 [facility] Comment on above: Order Comment: Speci men Type: BLOOD SPECIMENOrdering Facility: [facility] Address: [address] [place] [address] Performed By: #### 5 8410-2, 62815-3, 79176-7 ####[facility] [id number] [address] [place] MCH (RBC) [Entitic mass] 27.9 pg Normal 26.0-34.0 [facility] Comment on above: Order Comment: Speci men Type: BLOOD SPECIMENOrdering Facility: [facility] Address: [address] [place] [address] Performed By: #### 5 8410-2, 66623-3, 01595-1 ####[facility] [id number] [address] [place] MCHC (RBC) [Mass/Vol] 31.4 g/dL Normal 30.5-36.0 [facility] Comment on above: Order Comment: Speci men Type: BLOOD SPECIMENOrdering Facility: [facility] Address: [address] [place] [address] Performed By: #### 5 8410-2, 22162-3, 43192-5 ####[facility] [id number] [address] MCV (RBC) [Entitic vol] 88.8 fL Normal 80.0-100.0 [facility] Comment on above: Order Comment: Speci men Type: BLOOD SPECIMENOrdering Facility: [facility] Address: [address] [place] [address] Performed By: #### 5 8410-2, 87466-0, 68426-4 ####[facility] [id number] [place] [address] [place] Nucleated RBC (Bld) [#/Vol] 10*3/uL Normal <0.01 [facility] Comment on above: Order Comment: Speci men Type: BLOOD SPECIMENOrdering Facility: [facility] Address: [address] [place] [address] Performed By: #### 5 8410-2, 43420-7, 33418-2 ####[facility] [id number] [place] [address] [place] Platelet mean volume (Bld) [Entitic vol] 11.8 fL Normal 9.0-12.7 [facility] Comment on above: Order Comment: Speci men Type: BLOOD SPECIMENOrdering Facility: [facility] Address: [address] [place] [address] Performed By: #### 5 8410-2, 15421-0, 00226-8 ####[facility] [id number] [place] [address] [place] Platelets (Bld) [#/Vol] 138 10*3/uL Low 150-400 [facility] Comment on above: Order Comment: Speci men Type: BLOOD SPECIMENOrdering Facility: [facility] Address: [address] [place] [address] Result Comment: No c lot detected.Results checked and verified. Performed By: #### 5 8410-2, 86747-3, 27625-6 ####[facility] [id number] [place] [address] [place] RBC (Bld) [#/Vol] 4.48 10*6/uL Normal 4.20-6.00 [facility] Comment on above: Order Comment: Speci men Type: BLOOD SPECIMENOrdering Facility: [facility] Address: [address] [id number] Performed By: #### 5 8410-2, 11074-7, 85671-7 ####[facility] [id number] [place] [address] [place] WBC (Bld) [#/Vol] 4.53 10*3/uL Normal 3.70-11.00 [facility] Comment on above: Order Comment: Speci men Type: BLOOD SPECIMENOrdering Facility: [facility] Address: [address] [place], [place] [address] Performed By: #### 5 8410-2, 49547-2, 67569-8 ####[facility] [id number] [address] OF [facility] CONSULTon 11-20-2022 CONSULT Normal [facility] Calcium.ionized [Moles/Vol]o n 11-20-2022 Calcium.ionized (Bld) [Mass/Vol] 1.27 mmol/L Normal 1.08-1.30 [facility] Comment on above: Order Comment: Speci men Type: BLOOD SPECIMENOrdering Facility: [facility] Address: [address] [place], [place] [address] Performed By: #### 1 995-0 ####[facility] [id number] [address] Calcium.ionized adjusted to pH 7.4 (Bld) [Moles/Vol] 1.23 mmol/L Normal 1.08-1.30 [facility] Comment on above: Order Comment: Speci men Type: BLOOD SPECIMENOrdering Facility: [facility] Address: [address] [place], [place] [address] Performed By: #### 1 995-0 ####[facility] [id number] [address] STATES OF [facility] Comprehensive metabolic 2000 panelon 11-20-2022 Albumin [Mass/Vol] 4.0 g/dL Normal 3.9-4.9 [facility] Comment on above: Order Comment: Speci men Type: BLOOD SPECIMENOrdering Facility: [facility] Address: [address] [place] [address] Performed By: #### 3 3959-8, , ####[facility] [id number] [place] [address] [place] ALP [Catalytic activity/Vol] 90 U/L Normal 38-113 [facility] Comment on above: Order Comment: Speci men Type: BLOOD SPECIMENOrdering Facility: [facility] Address: [address] [place] [address] Performed By: #### 3 3959-8, , ####[facility] [id number] [place] [address] [place] ALT [Catalytic activity/Vol] 7 U/L Low 10-54 [facility] Comment on above: Order Comment: Speci men Type: BLOOD SPECIMENOrdering Facility: [facility] Address: [address] [place] [address] Performed By: #### 3 3959-8, , ####[facility] [id number] [place] [address] [place] Anion gap [Moles/Vol] 12 mmol/L Normal 9-18 [facility] Comment on above: Order Comment: Speci men Type: BLOOD SPECIMENOrdering Facility: [facility] Address: [address] [place] [address] Performed By: #### 3 3959-8, , ####[facility] [id number] [place] [address] [place] AST [Catalytic activity/Vol] 11 U/L Low 14-40 [facility] Comment on above: Order Comment: Speci men Type: BLOOD SPECIMENOrdering Facility: [facility] Address: [address] [address] Performed By: #### 3 3959-8, , ####[facility] [id number] [place] [address] [place] Bilirubin [Mass/Vol] 0.2 mg/dL Normal 0.2-1.3 [facility] Comment on above: Order Comment: Speci men Type: BLOOD SPECIMENOrdering Facility: [facility] Address: [address] [place] [address] Performed By: #### 3 3959-8, , ####[facility] [id number] [place] [address] [place] Calcium [Mass/Vol] 8.9 mg/dL Normal 8.5-10.2 [facility] Comment on above: Order Comment: Speci men Type: BLOOD SPECIMENOrdering Facility: [facility] Address: [address] [place] [address] Performed By: #### 3 3959-8, , ####[facility] [id number] [place] [address] [place] Chloride [Moles/Vol] 110 mmol/L High 97-105 [facility] Comment on above: Order Comment: Speci men Type: BLOOD SPECIMENOrdering Facility: [facility] Address: [address] Performed By: #### 3 3959-8, , ####[facility] [id number] [place] [address] [place] CO2 [Moles/Vol] 20 mmol/L Low 22-30 [facility] Comment on above: Order Comment: Speci men Type: BLOOD SPECIMENOrdering Facility: [facility] Address: [address] [id number] Performed By: #### 3 3959-8, , ####[facility] [id number] [address] [address] [place] Creatinine [Mass/Vol] 0.95 mg/dL Normal 0.73-1.22 [facility] Comment on above: Order Comment: Speci men Type: BLOOD SPECIMENOrdering Facility: [facility] Address: [address] Performed By: #### 3 3959-8, , ####[facility] [id number] [place] [address] [place] ESTIMATED GLOMERULAR FILTRATION RATE 89 mL/min/1.73m??? Normal >=60 [facility] Comment on above: Order Comment: Speci men Type: BLOOD SPECIMENOrdering Facility: [facility] Address: [address] [address] Result Comment: Karina mated Glomerular Filtration Rate [...] GFR. Performed By: #### 3 3959-8, , ####[facility] [id number] [address] [address] [place] Glucose [Mass/Vol] 74 mg/dL Normal 74-99 [facility] Comment on above: Order Comment: Speci men Type: BLOOD SPECIMENOrdering Facility: [facility] Address: [address] Result Comment: The [place] Diabetes Association (ADA) provides guidance for cutoff [...] Standards of Medical Care in Diabetes 2016, [place] [employer]. Diabetes Care. 2016.39(Suppl 1). Performed By: #### 3 3959-8, , ####[facility] [id number] [place] [address] [place] Potassium [Moles/Vol] 4.2 mmol/L Normal 3.7-5.1 [facility] Comment on above: Order Comment: Speci men Type: BLOOD SPECIMENOrdering Facility: [facility] Address: [address] [place] [address] Performed By: #### 3 3959-8, , ####[facility] [id number] [place] [address] [place] Protein [Mass/Vol] 6.2 g/dL Low 6.3-8.0 [facility] Comment on above: Order Comment: Speci men Type: BLOOD SPECIMENOrdering Facility: [facility] Address: [address] [address] Performed By: #### 3 3959-8, , ####[facility] [id number] [place] [address] [place] Sodium [Moles/Vol] 142 mmol/L Normal 136-144 [facility] Comment on above: Order Comment: Speci men Type: BLOOD SPECIMENOrdering Facility: [facility] Address: [address] [place] [address] Performed By: #### 3 3959-8, 66846-1, 54717-2 ####[facility] [id number] [place] [address] [place] Urea nitrogen [Mass/Vol] 26 mg/dL High 9-24 [facility] Comment on above: Order Comment: Speci men Type: BLOOD SPECIMENOrdering Facility: [facility] Address: [address] [place] [address] Performed By: #### 3 3959-8, 31247-4, ####[facility] [id number] [place] [address] [place] [id number] 11-20-2022 ECG01 Normal [facility] ED PROV NOTEon 11-20-2022 ED PROV NOTE Normal [facility] ED PROV NOTE Normal [facility] HISTORY PHYSICALon HISTORY PHYSICAL Normal [facility] LIPID PANEL, NONFASTINGon Cholesterol [Mass/Vol] 135 mg/dL Normal <200 [facility] Comment on above: Order Comment: Speci men Type: BLOOD SPECIMENOrdering Facility: [facility] Address: [address] [place] [address] Result Comment: <200 mg/dL, Desirable 200-239 mg/dL, Borderline high>239 mg/dL, High Performed By: #### L IPNF ####[facility] [id number] [place] [address] [place] HDL CHOLESTEROL, NF 35 mg/dL Low >39 [facility] Comment on above: Order Comment: Speci men Type: BLOOD SPECIMENOrdering Facility: [facility] Address: [address] [place] [address] Result Comment: 40-5 9 mg/dL, Acceptable>59 mg/dL, High: Negative risk factor for coronary heart disease<40 mg/dL, Low: Positive risk factor for coronary heart disease Performed By: #### L IPNF ####[facility] [id number] [address] OF [facility] LDL CHOLESTEROL, NF 76 mg/dL Normal <100 [facility] Comment on above: Order Comment: Chaz trevizo Type: BLOOD SPECIMENOrdering Facility: [facility] Address: [address] [place] [address] Result Comment: <100 mg/dL, Optimal 100-129 mg/dL, Near optimal/above optimal 130-159 mg/dL, Borderline high 160-189 mg/dL, High>189 mg/dL, Very highSecondary prevention optimal LDL Cholesterol levels are recommended to be < 70 mg/dL Performed By: #### L IPNF ####[facility] [id number] [address] LDL/HDL RATIO, NF 2.17 mg/dL Normal <2.[address] [facility] Comment on above: Order Comment: Chaz trevizo Type: BLOOD SPECIMENOrdering Facility: [facility] Address: [address] [place] [address] Result Comment: Refe rence:1. National Cholesterol Education Program ATP III Guideline At-A-Glance Quick Desk Reference: National Heart, Lung, and Blood [place]. National Institutes of Health. 2001: NIH Publication No. 01-3305.2. An International Atherosclerosis Society position paper: global recommendations for the management of dyslipidemia: executive summary, Atherosclerosis. 2014: 232(2):410-413. Performed By: #### L IPNF ####[facility] [id number] [address] OF [facility] NON HDL CHOL, NF 100 mg/dL Normal <130 [facility] Comment on above: Order Comment: Chaz trevizo Type: BLOOD SPECIMENOrdering Facility: [facility] Address: [address] [place] [address] Result Comment: <130 mg/dL, Optimal 130-159 mg/dL, Near optimal/above optimal 160-189 mg/dL, Borderline high 190-219 mg/dL, High>219 mg/dL, Very highSecondary prevention optimal non HDL Cholesterol levels are recommended to be <100 mg/dL Performed By: #### L IPNF ####[facility] [id number] [place] [address] [place] T CHOL/HDL RATIO NF 3.86 mg/dL Normal <5.10 [facility] Comment on above: Order Comment: Speci men Type: BLOOD SPECIMENOrdering Facility: [facility] Address: [address] [place] [address] Performed By: #### L IPNF ####[facility] [id number] [address] OF [place] TRIGLYCERIDES, NF 118 mg/dL Normal <[address] [facility] Comment on above: Order Comment: Speci men Type: BLOOD SPECIMENOrdering Facility: [facility] Address: [address] [place] [address] Result Comment: <150 mg/dL, Normal 150-199 mg/dL, Borderline high 200-499 mg/dL, High>499 mg/dL, Very high Performed By: #### L IPNF ####[facility] [id number] [place] [address] [place] VLDL CHOLESTEROL, NF 24 mg/dL Normal <30 [facility] Comment on above: Order Comment: Speci men Type: BLOOD SPECIMENOrdering Facility: [facility] Address: [address] [place] [address] Performed By: #### L IPNF ####[facility] [id number] [place] [address] [place] Magnesium SerPl-mCncon 11-20 Magnesium [Mass/Vol] 2.1 mg/dL Normal 1.7-2.3 [facility] Comment on above: Order Comment: Speci men Type: BLOOD SPECIMENOrdering Facility: [facility] Address: [address] [place] [address] Performed By: #### 3 3959-8, 59973-4, ####[facility] [id number] [place] [address] [place] Prealb SerPl-mCncon 11-20-19 Prealbumin [Mass/Vol] 25 mg/dL Normal 17-36 [facility] Comment on above: Order Comment: Speci men Type: BLOOD SPECIMENOrdering Facility: [facility] Address: [address] [place] [address] Performed By: #### 1 4338-8 ####[facility] [id number] [place] [address] [place] Procalcitonin SerPl-mCncon 0 11-20-2022 Procalcitonin [Mass/Vol] 0.10 ng/mL High <0.09 [facility] Comment on above: Order Comment: Speci men Type: BLOOD SPECIMENOrdering Facility: [facility] Address: [address] [place] [address] Result Comment: For a guided interpretation of test results, please visit the Change in Procalcitonin Calculator, [email or web address]. Performed By: #### 3 3959-8, , ####[facility] [id number] [place] [address] [place] Retics #on 11-20-2022 Reticulocytes (Bld) [#/Vol] 0.19763 10*3/uL Normal 0.018-0.10 0 [facility] Comment on above: Order Comment: Speci men Type: BLOOD SPECIMENOrdering Facility: [facility] Address: [address] [place] [address] Performed By: #### 5 8410-2, 07545-5, 95417-5 ####[facility] [id number] [place] [address] [place] Reticulocytes (Bld) [#/Vol]o n 11-20-2022 Reticulocytes/100 RBC (Bld) 1.4 % Normal 0.4-2.0 [facility] Comment on above: Order Comment: Speci men Type: BLOOD SPECIMENOrdering Facility: [facility] Address: [address] [place] [address] Performed By: #### 5 8410-2, 78065-2, 42535-6 ####[facility] [id number] [address] OF [facility] SARS-CoV-2 RNA Resp Ql KELLIE+p robeon 11-20-2022 SARS-CoV-2 (COVID-19) RNA KELLIE+probe Ql (Resp) COVID 19 RESULT: Detected The method used is RT-PCR or an equivalent NAAT method. Reference Range(the expected result in uninfected individuals): Not detected Normal [facility] Comment on above: Performed By: #### 9 4500-6 ####[facility] [id number] [place] [address] [place] Urinalysis complete panel (U )on 11-20-2022 Bilirubin Ql (U) Negative Normal Negative [facility] Comment on above: Order Comment: Speci men Type: URINE SPECIMENOrdering Facility: [facility] Address: [address] [place] [address] Performed By: #### 2 4356-8 ####[facility] [id number] [address] [place] Clarity (Unsp spec) Clear Normal Clear [facility] Comment on above: Order Comment: Speci men Type: URINE SPECIMENOrdering Facility: [facility] Address: [address] [place] [address] Performed By: #### 2 4356-8 ####[facility] [id number] [address] [place] Color (U) Yellow Normal Yellow [facility] Comment on above: Order Comment: Speci men Type: URINE SPECIMENOrdering Facility: [facility] Address: [address] [address] Performed By: #### 2 4356-8 ####[facility] [id number] [address] Glucose Test strip (U) [Mass/Vol] Negative Normal Trace, Negative [facility] Comment on above: Order Comment: Speci men Type: URINE SPECIMENOrdering Facility: [facility] Address: [address] Performed By: #### 2 4356-8 ####[facility] [id number] [place] [address] [place] Hemoglobin Ql (U) Negative Normal Negative, Trace [facility] Comment on above: Order Comment: Speci men Type: URINE SPECIMENOrdering Facility: [facility] Address: [address] Performed By: #### 2 4356-8 ####[facility] [id number] [address] OF [place] Ketones Ql (U) Trace Normal Trace, Negative [facility] Comment on above: Order Comment: Speci men Type: URINE SPECIMENOrdering Facility: [facility] Address: [address] Performed By: #### 2 4356-8 ####[facility] [id number] [address] [place] Leukocyte esterase Test strip Ql (U) Negative Normal Negative, 25 Winter/mL [facility] Comment on above: Order Comment: Speci men Type: URINE SPECIMENOrdering Facility: [facility] Address: [address] Performed By: #### 2 4356-8 ####[facility] [id number] [place] [address] [place] Nitrite Ql (U) Negative Normal Negative [facility] Comment on above: Order Comment: Speci men Type: URINE SPECIMENOrdering Facility: [facility] Address: [address] [place] [address] Performed By: #### 2 4356-8 ####[facility] [id number] [place] [address] [place] pH (U) 5.0 [pH] Normal 5.0-8.0 [facility] Comment on above: Order Comment: Speci men Type: URINE SPECIMENOrdering Facility: [facility] Address: [address] [place] [address] Performed By: #### 2 4356-8 ####[facility] [id number] [address] [place] Protein (U) [Mass/Vol] Trace Normal Trace , Negative [facility] Comment on above: Order Comment: Speci men Type: URINE SPECIMENOrdering Facility: [facility] Address: [address] [place] [address] Performed By: #### 2 4356-8 ####[facility] [id number] [place] [address] [place] RBC LM.HPF (Urine sed) [#/Area] 3-5 /HPF Abnormal 0-3 /HPF [facility] Comment on above: Order Comment: Speci men Type: URINE SPECIMENOrdering Facility: [facility] Address: [address] [place] [address] Performed By: #### 2 4356-8 ####[facility] [id number] [place] [address] [place] Specific gravity (U) [Rel density] 1.020 Normal 1.005-1.03 0 [facility] Comment on above: Order Comment: Speci men Type: URINE SPECIMENOrdering Facility: [facility] Address: [address] Performed By: #### 2 4356-8 ####[facility] [id number] [place] [address] [place] Urobilinogen Ql (U) Negative Normal Negative [facility] Comment on above: Order Comment: Speci men Type: URINE SPECIMENOrdering Facility: [facility] Address: [address] [address] Performed By: #### 2 4356-8 ####[facility] [id number] [place] [address] [place] WBC LM.HPF (Urine sed) [#/Area] 0-5 /HPF Normal 0-5 /HPF [facility] Comment on above: Order Comment: Speci men Type: URINE SPECIMENOrdering Facility: [facility] Address: [address] [address] Performed By: #### 2 4356-8 ####[facility] [id number] [place] [address] [place] XR CHEST 1V FRONTAL PORTon 0 11-20-2022 XR CHEST 1V FRONTAL PORT Normal [facility] CBC AUTO DIFFon 11-09-2022 BASO # 0.0 103/ul Normal 0.0-0.1 [facility] Comment on above: Performed By: #### C BC #### [facility] [address] [place] [address] Dr. Bruce Nicholas Basophils/100 WBC (Bld) 0.1 % Critically low 0.2-2.0 [facility] Comment on above: Performed By: #### C BC #### [facility] [address] [place] [address] Dr. Bruce Nicholas EO # 0.0 103/ul Normal 0.0-0.7 [facility] Comment on above: Performed By: #### C BC #### [facility] [address] [place] [address] Dr. Bruce Nicholas Eosinophils/100 WBC (Bld) 0.0 % Critically low 0.9-7.0 [facility] Comment on above: Performed By: #### C BC #### [facility] [address] [place] [address] Dr. Bruce Nicholas Erythrocyte distribution width (RBC) [Ratio] 16.0 % Critically high 11.0-15.0 [facility] Comment on above: Performed By: #### C BC #### [facility] [address] [place] [address] Dr. Bruce Nicholas Hematocrit (Bld) [Volume fraction] 36.6 % Critically low 42.0-54.0 [facility] Comment on above: Performed By: #### C BC #### [facility] [address] [place] [address] Dr. Bruce Nicholas Hemoglobin (Bld) [Mass/Vol] 12.3 g/dL Critically low 14.0-18.0 [facility] Comment on above: Performed By: #### C BC #### [facility] [address] [place] [address] Dr. Bruce Nicholas IG # 0.06 10e3/ul Critically high 0.00-0.03 [facility] Comment on above: Performed By: #### C BC #### [facility] [address] [place] [address] Dr. Bruce Nicholas IG % 0.7 % Critically high 0.0-0.5 [facility] Comment on above: Performed By: #### C BC #### [facility] [address] [place] [address] Dr. Bruce Nicholas LYMPH # 1.0 103/ul Critically low 1.2-3.8 [facility] Comment on above: Performed By: #### C BC #### [facility] [address] [place] [address] Dr. Bruce Nicholas Lymphocytes/100 WBC (Bld) 11.8 % Critically low 20.5-60.0 [facility] Comment on above: Performed By: #### C BC #### [facility] [address] [place] [address] Dr. Bruce Nicholas MANUAL DIFF REQ NO Normal [facility] Comment on above: Performed By: #### C BC #### [facility] [address] [place] [address] Dr. Bruce Nicholas MCH (RBC) [Entitic mass] 27.3 pg Normal 25.9-34.0 [facility] Comment on above: Performed By: #### C BC #### [facility] [address] [place] [address] Dr. Bruce Nicholas MCHC (RBC) [Mass/Vol] 33.6 g/dL Normal 29.9-35.2 [facility] Comment on above: Performed By: #### C BC #### [facility] [address] [place] [address] Dr. Bruce Nicholas MCV (RBC) [Entitic vol] 81.2 fL Normal 80.0-94.0 [facility] Comment on above: Performed By: #### C BC #### [facility] [address] [place] [address] Dr. Bruce Nicholas MONO # 0.2 103/ul Critically low 0.3-0.8 [facility] Comment on above: Performed By: #### C BC #### [facility] [address] [place] [address] Dr. Bruce Nicholas Monocytes/100 WBC (Bld) 3.0 % Normal 1.7-12.0 [facility] Comment on above: Performed By: #### C BC #### [facility] [address] [place] [address] Dr. Bruce Nicholas NEUT # 6.8 103/ul Critically high 1.4-6.5 [facility] Comment on above: Performed By: #### C BC #### [facility] [address] [place] [address] Dr. Bruce Nicholas Neutrophils/100 WBC (Bld) 84.4 % Critically high 43.0-75.0 [facility] Comment on above: Performed By: #### C BC #### [facility] [address] [place] [address] Dr. Bruce Nicholas Platelet mean volume (Bld) [Entitic vol] 11.6 fL Normal 9.5-13.5 [facility] Comment on above: Performed By: #### C BC #### [facility] [address] [place] [address] Dr. Bruce Nicholas PLT 206 103/ul Normal 150-450 [facility] Comment on above: Performed By: #### C BC #### [facility] [address] [place] [address] Dr. Bruce Nicholas RBC 4.51 106/ul Critically low 4.70-6.10 [facility] Comment on above: Performed By: #### C BC #### [facility] [address] [place] [address] Dr. Bruce Nicholas WBC 8.1 103/ul Normal 4.0-11.0 [facility] Comment on above: Performed By: #### C BC #### [facility] [address] [place] [address] Dr. Bruce Nicholas POINT OF CARE GLUCOSEon 10-20 Glucose [Mass/Vol] 134 mg/dL Critically high 74-106 [facility] Comment on above: Performed By: #### P OCGLUC #### [facility] [address] [place] [address] Dr. Bruce Nicholas PROF CHEM 8 (BAS METB)on Anion gap [Moles/Vol] 13.3 mmol/L Normal [facility] Comment on above: Performed By: #### P OCGLUC #### [facility] [address] [place] [address] Dr. Bruce Nicholas Calcium [Mass/Vol] 9.0 mg/dL Normal 8.5-10.1 [facility] Comment on above: Performed By: #### P OCGLUC #### [facility] [address] [place] [address] Dr. Bruce Nicholas Chloride [Moles/Vol] 105 mmol/L Normal 98-107 [facility] Comment on above: Performed By: #### P OCGLUC #### [facility] [address] [place] [address] Dr. Bruce Nicholas CO2 [Moles/Vol] 24.9 mmol/L Normal 21.0-32.0 [facility] Comment on above: Performed By: #### P OCGLUC #### [facility] [address] [address] [address] Bruce Nicholas Creatinine [Mass/Vol] 0.86 mg/dL Normal 0.70-1.30 [facility] Comment on above: Performed By: #### P OCGLUC #### [facility] [address] [address] [address] Bruce Nicholas EGFR-AF COOK ISLANDER >60 Normal >=60 [facility] Comment on above: Performed By: #### P OCGLUC #### [facility] [address] [address] [address] Bruce Nicholas EGFR-NON AF COOK ISLANDER >60 Normal >=60 [facility] Comment on above: Performed By: #### P OCGLUC #### [facility] [address] [address] [address] Bruce Nicholas Glucose [Mass/Vol] 127 mg/dL Critically high 74-106 [facility] Comment on above: Performed By: #### P OCGLUC #### [facility] [address] [place] [address] Dr. Bruce Nicholas Potassium [Moles/Vol] 4.2 mmol/L Normal 3.5-5.1 [facility] Comment on above: Performed By: #### P OCGLUC #### [facility] [address] [address] [address] Bruce Nicholas Sodium [Moles/Vol] 139 mmol/L Normal 136-145 [facility] Comment on above: Performed By: #### P OCGLUC #### [facility] [address] [address] [address] Bruce Nicholas Urea nitrogen [Mass/Vol] 30.0 mg/dL Critically high 7.0-18.0 [facility] Comment on above: Performed By: #### P OCGLUC #### [facility] [address] [place] [address] Dr. Bruce Nicholas Urea nitrogen/Creatinine [Mass ratio] 34.9 mg/mg Normal [facility] Comment on above: Performed By: #### P OCGLUC #### [facility] [address] [place] [address] Dr. Bruce Nicholas CBC AUTO DIFFon 11-08-2022 BASO # 0.0 103/ul Normal 0.0-0.1 [facility] Comment on above: Performed By: #### C VDTBH #### [facility] [address] [place] [address] Dr. Bruce Nicholas Basophils/100 WBC (Bld) 0.1 % Critically low 0.2-2.0 [facility] Comment on above: Performed By: #### C VDTBH #### [facility] [address] [place] [address] Dr. Bruce Nicholas EO # 0.0 103/ul Normal 0.0-0.7 [facility] Comment on above: Performed By: #### C VDTBH #### [facility] [address] [place] [address] Dr. Bruce Nicholas Eosinophils/100 WBC (Bld) 0.0 % Critically low 0.9-7.0 [facility] Comment on above: Performed By: #### C VDTBH #### [facility] [address] [place] [address] Dr. Bruce Nicholas Erythrocyte distribution width (RBC) [Ratio] 15.8 % Critically high 11.0-15.0 [facility] Comment on above: Performed By: #### C VDTBH #### [facility] [address] [place] [address] Dr. Bruce Nicholas Hematocrit (Bld) [Volume fraction] 33.4 % Critically low 42.0-54.0 [facility] Comment on above: Performed By: #### C VDTBH #### [facility] [address] [place] [address] Dr. Bruce Nicholas Hemoglobin (Bld) [Mass/Vol] 11.5 g/dL Critically low 14.0-18.0 [facility] Comment on above: Performed By: #### C VDTBH #### [facility] [address] [address] [address] Bruce Nicholas IG # 0.05 10e3/ul Critically high 0.00-0.03 [facility] Comment on above: Performed By: #### C VDTBH #### [facility] [address] [address] [address] Bruce Nicholas IG % 0.5 % Normal 0.0-0.5 [facility] Comment on above: Performed By: #### C VDTBH #### [facility] [address] [address] [address] Bruce Nicholas LYMPH # 0.9 103/ul Critically low 1.2-3.8 [facility] Comment on above: Performed By: #### C VDTBH #### [facility] [address] [place] [address] Dr. Bruce Nicholas Lymphocytes/100 WBC (Bld) 9.6 % Critically low 20.5-60.0 [facility] Comment on above: Performed By: #### C VDTBH #### [facility] [address] [address] [address] Bruce Nicholas MANUAL DIFF REQ NO Normal [facility] Comment on above: Performed By: #### C VDTBH #### [facility] [address] [place] [address] Dr. Bruce Nicholas MCH (RBC) [Entitic mass] 27.5 pg Normal 25.9-34.0 [facility] Comment on above: Performed By: #### C VDTBH #### [facility] [address] [address] [address] Bruce Nicholas MCHC (RBC) [Mass/Vol] 34.4 g/dL Normal 29.9-35.2 [facility] Comment on above: Performed By: #### C VDTBH #### [facility] [address] [address] [address] Bruce Nicholas MCV (RBC) [Entitic vol] 79.9 fL Critically low 80.0-94.0 [facility] Comment on above: Performed By: #### C VDTBH #### [facility] [address] [place] [address] Dr. Bruce Nicholas MONO # 0.3 103/ul Normal 0.3-0.8 [facility] Comment on above: Performed By: #### C VDTBH #### [facility] [address] [place] [address] Dr. Bruce Nicholas Monocytes/100 WBC (Bld) 3.3 % Normal 1.7-12.0 [facility] Comment on above: Performed By: #### C VDTBH #### [facility] [address] [place] [address] Dr. Bruce Nicholas NEUT # 8.3 103/ul Critically high 1.4-6.5 [facility] Comment on above: Performed By: #### C VDTBH #### [facility] [address] [place] [address] Dr. Bruce Nicholas Neutrophils/100 WBC (Bld) 86.5 % Critically high 43.0-75.0 [facility] Comment on above: Performed By: #### C VDTBH #### [facility] [address] [place] [address] Dr. Bruce Nicholas Platelet mean volume (Bld) [Entitic vol] 12.1 fL Normal 9.5-13.5 [facility] Comment on above: Performed By: #### C VDTBH #### [facility] [address] [place] [address] Dr. Bruce Nicholas PLT 205 103/ul Normal 150-450 [facility] Comment on above: Performed By: #### C VDTBH #### [facility] [address] [place] [address] Dr. Bruce Nicholas RBC 4.18 106/ul Critically low 4.70-6.10 [facility] Comment on above: Performed By: #### C VDTBH #### [facility] [address] [place] [address] Dr. Bruce Nicholas WBC 9.6 103/ul Normal 4.0-11.0 [facility] Comment on above: Performed By: #### C VDTBH #### [facility] [address] [address] [address] Bruce Nicholas POINT OF CARE GLUCOSEon 10-20 Glucose [Mass/Vol] 121 mg/dL Critically high -106 [facility] Comment on above: Performed By: #### C VDTBH #### [facility] [address] [address] [address] Bruce Nicholas Glucose [Mass/Vol] 126 mg/dL Critically high -106 [facility] Comment on above: Performed By: #### C BC #### [facility] [address] [address] [address] Bruce Nicholas Glucose [Mass/Vol] 164 mg/dL Critically high [facility]106 [facility] Comment on above: Performed By: #### C BC #### [facility] [address] [place] [address] Dr. Bruce Nicholas PROF CHEM 8 (BAS METB)on Anion gap [Moles/Vol] 14.2 mmol/L Normal [facility] Comment on above: Performed By: #### P OCGLUC #### [facility] [address] [place] [address] Dr. Bruce Nicholas Calcium [Mass/Vol] 8.9 mg/dL Normal 8.5-10.1 [facility] Comment on above: Performed By: #### P OCGLUC #### [facility] [address] [place] [address] Dr. Bruce Nicholas Chloride [Moles/Vol] 107 mmol/L Normal 98-107 [facility] Comment on above: Performed By: #### P OCGLUC #### [facility] [address] [address] [address] Bruce Nicholas CO2 [Moles/Vol] 22.8 mmol/L Normal 21.0-32.0 [facility] Comment on above: Performed By: #### P OCGLUC #### [facility] [address] [place] [address] Dr. Bruce Nicholas Creatinine [Mass/Vol] 0.94 mg/dL Normal 0.70-1.30 [facility] Comment on above: Performed By: #### P OCGLUC #### [facility] [address] [address] [address] Bruce Nicholas EGFR-AF COOK ISLANDER >60 Normal >=60 [facility] Comment on above: Performed By: #### P OCGLUC #### [facility] [address] [address] [address] Bruce Nicholas EGFR-NON AF [place] ISLANDER >60 Normal >=60 [facility] Comment on above: Performed By: #### P OCGLUC #### [facility] [address] [address] [address] Bruce Nicholas Glucose [Mass/Vol] 128 mg/dL Critically high 74-106 [facility] Comment on above: Performed By: #### P OCGLUC #### [facility] [address] [address] [address] Bruce Nicholas Potassium [Moles/Vol] 4.0 mmol/L Normal 3.5-5.1 [facility] Comment on above: Performed By: #### P OCGLUC #### [facility] [address] [address] [address] Bruce Nicholas Sodium [Moles/Vol] 140 mmol/L Normal 136-145 [facility] Comment on above: Performed By: #### P OCGLUC #### [facility] [address] [address] [address] Bruce Nicholas Urea nitrogen [Mass/Vol] 33.0 mg/dL Critically high 7.0-18.0 [facility] Comment on above: Performed By: #### P OCGLUC #### [facility] [address] [address] [address] Bruce Nicholas Urea nitrogen/Creatinine [Mass ratio] 35.1 mg/mg Normal [facility] Comment on above: Performed By: #### P OCGLUC #### [facility] [address] [address] [address] Bruce Nicholas XR CHEST 2 Von [...] EN HUIZARH Date: 2022-11-08 13:38 Normal [facility] CBC AUTO DIFFon 11-07-2022 BASO # 0.0 103/ul Normal 0.0-0.1 [facility] Comment on above: Performed By: #### C BC #### [facility] [address] [place] [address] Dr. Bruce Nicholas Basophils/100 WBC (Bld) 0.0 % Critically low 0.2-2.0 [facility] Comment on above: Performed By: #### C BC #### [facility] [address] [place] [address] Dr. Bruce Nicholas EO # 0.0 103/ul Normal 0.0-0.7 [facility] Comment on above: Performed By: #### C BC #### [facility] [address] [place] [address] Dr. Bruce Nicholas Eosinophils/100 WBC (Bld) 0.0 % Critically low 0.9-7.0 [facility] Comment on above: Performed By: #### C BC #### [facility] [address] [place] [address] Dr. Bruce Nicholas Erythrocyte distribution width (RBC) [Ratio] 16.1 % Critically high 11.0-15.0 [facility] Comment on above: Performed By: #### C BC #### [facility] [address] [place] [address] Dr. Bruce Nicholas Hematocrit (Bld) [Volume fraction] 36.3 % Critically low 42.0-54.0 [facility] Comment on above: Performed By: #### C BC #### [facility] [address] [place] [address] Dr. Bruce Nicholas Hemoglobin (Bld) [Mass/Vol] 11.5 g/dL Critically low 14.0-18.0 [facility] Comment on above: Performed By: #### C BC #### [facility] [address] [place] [address] Dr. Bruce Nicholas IG # 0.07 10e3/ul Critically high 0.00-0.03 [facility] Comment on above: Performed By: #### C BC #### [facility] [address] [place] [address] Dr. Bruce Nicholas IG % 0.6 % Critically high 0.0-0.5 [facility] Comment on above: Performed By: #### C BC #### [facility] [address] [place] [address] Dr. Bruce Nicholas LYMPH # 0.9 103/ul Critically low 1.2-3.8 [facility] Comment on above: Performed By: #### C BC #### [facility] [address] [place] [address] Dr. Bruce Nicholas Lymphocytes/100 WBC (Bld) 7.2 % Critically low 20.5-60.0 [facility] Comment on above: Performed By: #### C BC #### [facility] [address] [place] [address] Dr. Bruce Nicholas MANUAL DIFF REQ NO Normal [facility] Comment on above: Performed By: #### C BC #### [facility] [address] [place] [address] Dr. Bruce Nicholas MCH (RBC) [Entitic mass] 27.7 pg Normal 25.9-34.0 [facility] Comment on above: Performed By: #### C BC #### [facility] [address] [place] [address] Dr. Bruce Nicholas MCHC (RBC) [Mass/Vol] 31.7 g/dL Normal 29.9-35.2 [facility] Comment on above: Performed By: #### C BC #### [facility] [address] [place] [address] Dr. Bruce Nicholas MCV (RBC) [Entitic vol] 87.5 fL Normal 80.0-94.0 [facility] Comment on above: Performed By: #### C BC #### [facility] [address] [place] [address] Dr. Bruce Nicholas MONO # 0.3 103/ul Normal 0.3-0.8 [facility] Comment on above: Performed By: #### C BC #### [facility] [address] [place] [address] Dr. Bruce Nicholas Monocytes/100 WBC (Bld) 2.9 % Normal 1.7-12.0 [facility] Comment on above: Performed By: #### C BC #### [facility] [address] [place] [address] Dr. Bruce Nicholas NEUT # 10.6 103/ul Critically high 1.4-6.5 [facility] Comment on above: Performed By: #### C BC #### [facility] [address] [place] [address] Dr. Bruce Nicholas Neutrophils/100 WBC (Bld) 89.3 % Critically high 43.0-75.0 [facility] Comment on above: Performed By: #### C BC #### [facility] [address] [place] [address] Dr. Bruce Nicholas Platelet mean volume (Bld) [Entitic vol] 12.4 fL Normal 9.5-13.5 [facility] Comment on above: Performed By: #### C BC #### [facility] [address] [place] [address] Dr. Bruce Nicholas PLT 195 103/ul Normal 150-450 [facility] Comment on above: Performed By: #### C BC #### [facility] [address] [place] [address] Dr. Bruce Nicholas RBC 4.15 106/ul Critically low 4.70-6.10 [facility] Comment on above: Performed By: #### C BC #### [facility] [address] [place] [address] Dr. Bruce Nicholas WBC 11.9 103/ul Critically high 4.0-11.0 [facility] Comment on above: Performed By: #### C BC #### [facility] [address] [place] [address] Dr. Bruce Nicholas POINT OF CARE GLUCOSEon 10-20 Glucose [Mass/Vol] 145 mg/dL Critically high 74-106 [facility] Comment on above: Performed By: #### P OCGLUC #### [facility] [address] [place] [address] Dr. Bruce Nicholas Glucose [Mass/Vol] 139 mg/dL Critically high 74-106 [facility] Comment on above: Performed By: #### C BC #### [facility] [address] [place] [address] Dr. Bruce Nicholas Glucose [Mass/Vol] 122 mg/dL Critically high 74-106 [facility] Comment on above: Performed By: #### P OCGLUC #### [facility] [address] [place] [address] Dr. Bruce Nicholas PROF CHEM 8 (BAS METB)on Anion gap [Moles/Vol] 14.8 mmol/L Normal [facility] Comment on above: Performed By: #### C BC #### [facility] [address] [place] [address] Dr. Bruce Nicholas Calcium [Mass/Vol] 9.0 mg/dL Normal 8.5-10.1 [facility] Comment on above: Performed By: #### C BC #### [facility] [address] [place] [address] Dr. Bruce Nicholas Chloride [Moles/Vol] 107 mmol/L Normal 98-107 [facility] Comment on above: Performed By: #### C BC #### [facility] [address] [place] [address] Dr. Bruce Nicholas CO2 [Moles/Vol] 21.3 mmol/L Normal 21.0-32.0 [facility] Comment on above: Performed By: #### C BC #### [facility] [address] [address] [address] Bruce Nicholas Creatinine [Mass/Vol] 1.11 mg/dL Normal 0.70-1.30 [facility] Comment on above: Performed By: #### C BC #### [facility] [address] [address] [address] Bruce Nicholas EGFR-AF COOK ISLANDER >60 Normal >=60 [facility] Comment on above: Performed By: #### C BC #### [facility] [address] [place] [address] Dr. Bruce Nicholas EGFR-NON AF [place] ISLANDER >60 Normal >=60 [facility] Comment on above: Performed By: #### C BC #### [facility] [address] [address] [address] Bruce Nicholas Glucose [Mass/Vol] 158 mg/dL Critically high 74-106 [facility] Comment on above: Performed By: #### C BC #### [facility] [address] [address] [address] Bruce Nicholas Potassium [Moles/Vol] 4.1 mmol/L Normal 3.5-5.1 [facility] Comment on above: Performed By: #### C BC #### [facility] [address] [place] [address] Dr. Bruce Nicholas Sodium [Moles/Vol] 139 mmol/L Normal 136-145 [facility] Comment on above: Performed By: #### C BC #### [facility] [address] [address] [address] Bruce Nicholas Urea nitrogen [Mass/Vol] 28.0 mg/dL Critically high 7.0-18.0 [facility] Comment on above: Performed By: #### C BC #### [facility] [address] [place] [address] Dr. Bruce Nicholas Urea nitrogen/Creatinine [Mass ratio] 25.2 mg/mg Normal [facility] Comment on above: Performed By: #### C BC #### [facility] [address] [place] [address] Dr. Bruce Nicholas CBC AUTO DIFFon 11-06-2022 BASO # 0.0 103/ul Normal 0.0-0.1 [facility] Comment on above: Performed By: #### C BC #### [facility] [address] [place] [address] Dr. Bruce Nicholas Basophils/100 WBC (Bld) 0.0 % Critically low 0.2-2.0 [facility] Comment on above: Performed By: #### C BC #### [facility] [address] [place] [address] Dr. Bruce Nicholas EO # 0.0 103/ul Normal 0.0-0.7 [facility] Comment on above: Performed By: #### C BC #### [facility] [address] [place] [address] Dr. Bruce Nicholas Eosinophils/100 WBC (Bld) 0.0 % Critically low 0.9-7.0 [facility] Comment on above: Performed By: #### C BC #### [facility] [address] [place] [address] Dr. Bruce Nicholas Erythrocyte distribution width (RBC) [Ratio] 15.8 % Critically high 11.0-15.0 [facility] Comment on above: Performed By: #### C BC #### [facility] [address] [place] [address] Dr. Bruce Nicholas Hematocrit (Bld) [Volume fraction] 37.1 % Critically low 42.0-54.0 [facility] Comment on above: Performed By: #### C BC #### [facility] [address] [place] [address] Dr. Bruce Nicholas Hemoglobin (Bld) [Mass/Vol] 11.7 g/dL Critically low 14.0-18.0 [facility] Comment on above: Performed By: #### C BC #### [facility] [address] [place] [address] Dr. Bruce Nicholas IG # 0.03 10e3/ul Normal 0.00-0.03 [facility] Comment on above: Performed By: #### C BC #### [facility] [address] [place] [address] Dr. Bruce Nicholas IG % 0.4 % Normal 0.0-0.5 [facility] Comment on above: Performed By: #### C BC #### [facility] [address] [place] [address] Dr. Bruce Nicholas LYMPH # 0.7 103/ul Critically low 1.2-3.8 [facility] Comment on above: Performed By: #### C BC #### [facility] [address] [place] [address] Dr. Bruce Nicholas Lymphocytes/100 WBC (Bld) 9.9 % Critically low 20.5-60.0 [facility] Comment on above: Performed By: #### C BC #### [facility] [address] [place] [address] Dr. Bruce Nicholas MANUAL DIFF REQ NO Normal [facility] Comment on above: Performed By: #### C BC #### [facility] [address] [place] [address] Dr. Bruce Nicholas MCH (RBC) [Entitic mass] 27.3 pg Normal 25.9-34.0 [facility] Comment on above: Performed By: #### C BC #### [facility] [address] [place] [address] Dr. Bruce Nicholas MCHC (RBC) [Mass/Vol] 31.5 g/dL Normal 29.9-35.2 [facility] Comment on above: Performed By: #### C BC #### [facility] [facility] [address] [place] [address] Dr. Bruce Nicholas MCV (RBC) [Entitic vol] 86.5 fL Normal 80.0-94.0 [facility] Comment on above: Performed By: #### C BC #### [facility] [address] [place] [address] Dr. Bruce Nicholas MONO # 0.1 103/ul Critically low 0.3-0.8 [facility] Comment on above: Performed By: #### C BC #### [facility] [address] [address] [address] Bruce Nicholas Monocytes/100 WBC (Bld) 1.9 % Normal 1.7-12.0 [facility] Comment on above: Performed By: #### C BC #### [facility] [address] [address] [address] Bruce Nicholas NEUT # 6.0 103/ul Normal 1.4-6.5 [facility] Comment on above: Performed By: #### C BC #### [facility] [address] [address] [address] Bruce Nicholas Neutrophils/100 WBC (Bld) 87.8 % Critically high 43.0-75.0 [facility] Comment on above: Performed By: #### C BC #### [facility] [address] [place] [address] Dr. Bruce Nicholas Platelet mean volume (Bld) [Entitic vol] 12.4 fL Normal 9.5-13.5 [facility] Comment on above: Performed By: #### C BC #### [facility] [address] [place] [address] Dr. Bruce Nicholas PLT 186 103/ul Normal 150-450 [facility] Comment on above: Performed By: #### C BC #### [facility] [address] [place] [address] Dr. Bruce Nicholas RBC 4.29 106/ul Critically low 4.70-6.10 [facility] Comment on above: Performed By: #### C BC #### [facility] [address] [place] [address] Dr. Bruce Nicholas WBC 6.9 103/ul Normal 4.0-11.0 [facility] Comment on above: Performed By: #### C BC #### [facility] [address] [place] [address] Dr. Bruce Nicholas POINT OF CARE GLUCOSEon 10-19 Glucose [Mass/Vol] 139 mg/dL Critically high 74-106 [facility] Comment on above: Performed By: #### P OCGLUC #### [facility] [address] [address] [address] Bruce Nicholas Glucose [Mass/Vol] 129 mg/dL Critically high 74-106 [facility] Comment on above: Performed By: #### P OCGLUC #### [facility] [address] [address] [address] Bruce Nicholas Glucose [Mass/Vol] 128 mg/dL Critically high 74-106 [facility] Comment on above: Performed By: #### P OCGLUC #### [facility] [address] [address] [address] Bruce Nicholas PROF CHEM 8 (BAS METB)on Anion gap [Moles/Vol] 17.3 mmol/L Normal [facility] Comment on above: Performed By: #### C BC #### [facility] [address] [address] [address] Bruce Nicholas Calcium [Mass/Vol] 9.0 mg/dL Normal 8.5-10.1 [facility] Comment on above: Performed By: #### C BC #### [facility] [address] [place] [address] Dr. Bruce Nicholas Chloride [Moles/Vol] 107 mmol/L Normal 98-107 [facility] Comment on above: Performed By: #### C BC #### [facility] [address] [address] [address] Bruce Nicholas CO2 [Moles/Vol] 20.4 mmol/L Critically low 21.0-32.0 [facility] Comment on above: Performed By: #### C BC #### [facility] [address] [place] [address] Dr. Bruce Nicholas Creatinine [Mass/Vol] 1.12 mg/dL Normal 0.70-1.30 [facility] Comment on above: Performed By: #### C BC #### [facility] [address] [address] [address] Bruce Nicholas EGFR-AF COOK ISLANDER >60 Normal >=60 [facility] Comment on above: Performed By: #### C BC #### [facility] [address] [address] [address] Bruce Nicholas EGFR-NON AF [place] ISLANDER >60 Normal >=60 [facility] Comment on above: Performed By: #### C BC #### [facility] [address] [address] [address] Bruce Nicholas Glucose [Mass/Vol] 184 mg/dL Critically high 74-106 [facility] Comment on above: Performed By: #### C BC #### [facility] [address] [address] [address] Bruce Nicholas Potassium [Moles/Vol] 3.7 mmol/L Normal 3.5-5.1 [facility] Comment on above: Performed By: #### C BC #### [facility] [address] [address] [address] Bruce Nicholas Sodium [Moles/Vol] 141 mmol/L Normal 136-145 [facility] Comment on above: Performed By: #### C BC #### [facility] [address] [address] [address] Bruce Nicholas Urea nitrogen [Mass/Vol] 25.0 mg/dL Critically high 7.0-18.0 [facility] Comment on above: Performed By: #### C BC #### [facility] [address] [address] [address] Bruce Nicholas Urea nitrogen/Creatinine [Mass ratio] 22.3 mg/mg Normal [facility] Comment on above: Performed By: #### C BC #### [facility] [address] [address] [address] Bruce Nicholas BNPon 11-05-2022 Natriuretic peptide B (Bld) [Mass/Vol] 131.0 pg/mL Normal <=900.0 [facility] Comment on above: Performed By: #### C BC #### [facility] [address] [address] [address] Bruce Nicholas CARDIAC EAMON ADMITon 023 CK [Catalytic activity/Vol] 44 U/L Normal 39-308 [facility] Comment on above: Performed By: #### C BC #### [facility] [address] [place] [address] Dr. Bruce Nicholas CK.MB [Mass/Vol] 1.08 ng/mL Normal <=3.60 [facility] Comment on above: Performed By: #### C BC #### [facility] [address] [place] [address] Dr. Bruce Nicholas HSTROP 5.2 pg/mL Normal 4.0-76.1 [facility] Comment on above: Result Comment: CUT- OFF POINTS HAVE BEEN ESTABLISHED BASED ON THE FOURTH UNIVERSAL DEFINITIONS OF MYOCARDIAL INFARCTION. THE UPPER REFERENCE LIMIT (URL) OF TROPONIN, DEFINED THE 99TH PERCENTILE OF cTnI DISTRIBUTION IN A REFERENCE POPULATION, HAS BEEN CONFIRMED THE DECISION THRESHOLD FOR UT DIAGNOSIS. Performed By: #### C BC #### [facility] [address] [place] [address] Dr. Bruce Nicholas DAVID 57 ng/mL Normal 16-96 [facility] Comment on above: Performed By: #### C BC #### [facility] [address] [place] [address] Dr. Bruce Nicholas CBC AUTO DIFFon 11-05-2022 BASO # 0.0 103/ul Normal 0.0-0.1 [facility] Comment on above: Performed By: #### C BC #### [facility] [address] [place] [address] Dr. Bruce Nichoals Basophils/100 WBC (Bld) 0.6 % Normal 0.2-2.0 [facility] Comment on above: Performed By: #### C BC #### [facility] [address] [place] [address] Dr. Bruce Nicholas EO # 0.1 103/ul Normal 0.0-0.7 [facility] Comment on above: Performed By: #### C BC #### [facility] [address] [place] [address] Dr. Bruce Nicholas Eosinophils/100 WBC (Bld) 1.3 % Normal 0.9-7.0 [facility] Comment on above: Performed By: #### C BC #### [facility] [address] [place] [address] Dr. Bruce Nicholas Erythrocyte distribution width (RBC) [Ratio] 15.4 % Critically high 11.0-15.0 [facility] Comment on above: Performed By: #### C BC #### [facility] [address] [place] [address] Dr. Bruce Nicholas Hematocrit (Bld) [Volume fraction] 44.9 % Normal 42.0-54.0 [facility] Comment on above: Performed By: #### C BC #### [facility] [address] [place] [address] Dr. Bruce Nicholas Hemoglobin (Bld) [Mass/Vol] 14.0 g/dL Normal 14.0-18.0 [facility] Comment on above: Performed By: #### C BC #### [facility] [address] [place] [address] Dr. Bruce Nicholas IG # 0.02 10e3/ul Normal 0.00-0.03 [facility] Comment on above: Performed By: #### C BC #### [facility] [address] [place] [address] Dr. Bruce Nicholas IG % 0.3 % Normal 0.0-0.5 [facility] Comment on above: Performed By: #### C BC #### [facility] [address] [place] [address] Dr. Bruce Nicholas LYMPH # 2.3 103/ul Normal 1.2-3.8 [facility] Comment on above: Performed By: #### C BC #### [facility] [address] [place] [address] Dr. Bruce Nicholas Lymphocytes/100 WBC (Bld) 31.7 % Normal 20.5-60.0 [facility] Comment on above: Performed By: #### C BC #### [facility] [address] [place] [address] Dr. Bruce Nicholas MANUAL DIFF REQ NO Normal [facility] Comment on above: Performed By: #### C BC #### [facility] [address] [place] [address] Dr. Bruce Nicholas MCH (RBC) [Entitic mass] 27.3 pg Normal 25.9-34.0 [facility] Comment on above: Performed By: #### C BC #### [facility] [address] [address] [address] Bruce Nicholas MCHC (RBC) [Mass/Vol] 31.2 g/dL Normal 29.9-35.2 [facility] Comment on above: Performed By: #### C BC #### [facility] [address] [address] [address] Bruce Nicholas MCV (RBC) [Entitic vol] 87.5 fL Normal 80.0-94.0 [facility] Comment on above: Performed By: #### C BC #### [facility] [address] [place] [address] Dr. Bruce Nicholas MONO # 0.5 103/ul Normal 0.3-0.8 [facility] Comment on above: Performed By: #### C BC #### [facility] [address] [place] [address] Dr. Bruce Nicholas Monocytes/100 WBC (Bld) 7.6 % Normal 1.7-12.0 [facility] Comment on above: Performed By: #### C BC #### [facility] [address] [place] [address] Dr. Bruce Nicholas NEUT # 4.2 103/ul Normal 1.4-6.5 [facility] Comment on above: Performed By: #### C BC #### [facility] [address] [place] [address] Dr. Bruce Nicholas Neutrophils/100 WBC (Bld) 58.5 % Normal 43.0-75.0 [facility] Comment on above: Performed By: #### C BC #### [facility] [address] [address] [address] Bruce Nicholas Platelet mean volume (Bld) [Entitic vol] 12.6 fL Normal 9.5-13.5 [facility] Comment on above: Performed By: #### C BC #### [facility] [address] [place] [address] Dr. Bruce Nicholas PLT 211 103/ul Normal 150-450 [facility] Comment on above: Performed By: #### C BC #### [facility] [address] [place] [address] Dr. Bruce Nicholas RBC 5.13 106/ul Normal 4.70-6.10 [facility] Comment on above: Performed By: #### C BC #### [facility] [address] [place] [address] Dr. Bruce Nicholas WBC 7.1 103/ul Normal 4.0-11.0 [facility] Comment on above: Performed By: #### C BC #### [facility] [address] [place] [address] Dr. Bruce Nicholas CULTURE BLOODon 11-05-2022 Microscopic examination of blood, culture Culture Observations: NO GROWTH AT 5 DAYS. Normal [facility] Comment on above: Performed By: #### C VDTBH #### [facility] [address] [place] [address] Dr. Bruce Nicholas Microscopic examination of blood, culture Culture Observations: NO GROWTH AT 5 DAYS. Normal [facility] Comment on above: Performed By: #### B [id number] #### [facility] [address] [place] [address] Dr. Bruce Nicholas [facility]-19 SARS-CoV-2 (COVID-19) RNA KELLIE+probe Ql (Unsp spec) Not detected Normal NOT DETECTED [facility] Comment on above: Result [...] for this test is supported by the [place] of Health and Human Service's declaration that [...] used). Performed By: #### C VDTBH #### [facility] [address] [place] [address] Dr. Bruce Nicholas INFLUENZA A AND B AGon 11-05 [facility] SEE BELOW Normal [facility] Comment on above: Result Comment: Nega tive for Flu A protein angiten. Infection due to Flu A cannot be ruled out. Flu A angiten in the sample may be below the detection limit of the test. Performed By: #### C BC #### [facility] [address] [place] [address] Dr. Bruce Nicholas INFLUBNEG SEE BELOW Normal [facility] Comment on above: Result Comment: Nega tive for Flu B protein antigen. Infection due to Flu B cannot be ruled out. Flu B antigen in the sample may be below the detection limit of the test. Performed By: #### C BC #### [facility] [address] [place] [address] Dr. Bruce Nicholas INFLUENZA A AG Negative Normal NEGATIVE SEE COMMENT [facility] Comment on above: Performed By: #### C BC #### [facility] [address] [place] [address] Dr. Bruce Nicholas INFLUENZA B AG Negative Normal NEGATIVE SEE COMMENT [facility] Comment on above: Performed By: #### C BC #### [facility] [address] [place] [address] Dr. Bruce Nicholas POINT OF CARE GLUCOSEon 10-19 Glucose [Mass/Vol] 190 mg/dL Critically high 74-106 [facility] Comment on above: Performed By: #### P OCGLUC #### [facility] [address] [place] [address] Dr. Bruce Nicholas Glucose [Mass/Vol] 129 mg/dL Critically high 74-106 [facility] Comment on above: Performed By: #### C VDTBH #### [facility] [address] [address] [address] Bruce Nicholas Glucose [Mass/Vol] 110 mg/dL Critically high 74-106 [facility] Comment on above: Performed By: #### C BC #### [facility] [address] [address] [address] Bruce Nicholas PROF CHEM 8 (BAS METB)on Anion gap [Moles/Vol] 16.0 mmol/L Normal [facility] Comment on above: Performed By: #### C BC #### [facility] [address] [address] [address] Bruce Nicholas Calcium [Mass/Vol] 9.4 mg/dL Normal 8.5-10.1 [facility] Comment on above: Performed By: #### C BC #### [facility] [address] [place] [address] Dr. Bruce Nicholas Chloride [Moles/Vol] 106 mmol/L Normal 98-107 [facility] Comment on above: Performed By: #### C BC #### [facility] [address] [place] [address] Dr. Bruce Nicholas CO2 [Moles/Vol] 25.2 mmol/L Normal 21.0-32.0 [facility] Comment on above: Performed By: #### C BC #### [facility] [address] [place] [address] Dr. Bruce Nicholas Creatinine [Mass/Vol] 1.09 mg/dL Normal 0.70-1.30 [facility] Comment on above: Performed By: #### C BC #### [facility] [address] [place] [address] Dr. Bruce Nicholas EGFR-AF [place] ISLANDER >60 Normal >=60 [facility] Comment on above: Performed By: #### C BC #### [facility] [address] [place] [address] Dr. Bruce Nicholas EGFR-NON AF [place] ISLANDER >60 Normal >=60 [facility] Comment on above: Performed By: #### C BC #### [facility] [address] [place] [address] Dr. Bruce Nicholas Glucose [Mass/Vol] 107 mg/dL Critically high 74-106 [facility] Comment on above: Performed By: #### C BC #### [facility] [address] [address] [address] Bruce Nicholas Potassium [Moles/Vol] 3.2 mmol/L Critically low 3.5-5.1 [facility] Comment on above: Performed By: #### C BC #### [facility] [address] [address] [address] Bruce Nicholas Sodium [Moles/Vol] 144 mmol/L Normal 136-145 [facility] Comment on above: Performed By: #### C BC #### [facility] [address] [address] [address] Bruce Nicholas Urea nitrogen [Mass/Vol] 20.0 mg/dL Critically high 7.0-18.0 [facility] Comment on above: Performed By: #### C BC #### [facility] [address] [address] [address] Bruce Nicholas Urea nitrogen/Creatinine [Mass ratio] 18.3 mg/mg Normal [facility] Comment on above: Performed By: #### C BC #### [facility] [address] [address] [address] Bruce Nicholas XR CHEST 1 Von [...] LIZETH MCDONOUGH Date: 2022-11-05 08:05 Normal [facility] CT LSPINE WO CONon CT LSPINE WO CON EXAMINATION: CT TSPI [...] by: DON MURRAY Date: 2022-10-09 13:29 Normal [facility] POINT OF CARE GLUCOSEon 2 Glucose [Mass/Vol] 81 mg/dL Normal 74-106 [facility] Comment on above: Performed By: #### [facility] #### [facility] [address] [address] [address] Bruce Nicholas Glucose [Mass/Vol] 69 mg/dL Critically low 74-106 [facility] Comment on above: Performed By: #### C BC #### [facility] [address] [address] [address] Bruce Nicholas XR MYELOGRAM LSPINE EXPon [...] by: DON MURRAY Date: 2022-10-08 11:11 Normal [facility] COVID-19on 02-18-2022 SARS-CoV-2 (COVID-19) RNA KELLIE+probe Ql (Unsp spec) Not detected Normal NOT DETECTED [facility] Comment on above: Result Comment: Alejo art [...] authorized laboratories. Fact sheet for Healthcare Providers: https://www.fda.gov/media/384442/download Fact sheet for Patients: https://www.fda.gov/media/630096/download METHODOLOGY: Isothermal Nucleic Acid Amplification Performed By: #### C OVPC #### [facility] [address] [place] [address] COVID-19, Rapidon 02-18-2022 SARS-CoV-2 (COVID-19) RNA KELLIE+probe Ql (Unsp spec) Not detected NOT DETECTED [facility] Comment on above: Rapid NAAT: Negative results [...] authorized laboratories. Fact sheet for Healthcare Providers: https://www.fda.gov/media/265598/download Fact sheet for Patients: https://www.fda.gov/media/760353/download METHODOLOGY: Isothermal Nucleic Acid Amplification Performed at [address] GLUCOSE POCon 02-18-2022 Glucose [Mass/Vol] 100 mg/dL Normal 70-108 [facility] Comment on above: Performed By: #### P OCGL #### [place] [address] Glucose [Mass/Vol] 107 mg/dL Normal 70-108 [facility] Comment on above: Performed By: #### P OCGL #### [place] [address] POCT glucoseon 02-18-2022 Glucose [Mass/Vol] 100 mg/dL 70 - 108 mg/dl [facility] Comment on above: Performed at [facility] [address] [place] [address] Glucose [Mass/Vol] 107 mg/dL 70 - 108 mg/dl [facility] Comment on above: Performed at [facility] [address] [place] [address] GLUCOSE POCon 02-17-2022 Glucose [Mass/Vol] 90 mg/dL Normal 70-108 [facility] Comment on above: Performed By: #### C BCND, PT, APTT, BMP, ANION, EGFR1 #### [place] [address] Glucose [Mass/Vol] 88 mg/dL Normal 70-108 [facility] Comment on above: Performed By: #### P OCGL #### [place] [address] Glucose [Mass/Vol] 99 mg/dL Normal 70-108 [facility] Comment on above: Performed By: #### P OCGL #### [facility] [address] [place] [address] POCT glucoseon 02-17-2022 Glucose [Mass/Vol] 90 mg/dL 70 - 108 mg/dl [facility] Comment on above: Performed at [facility] [address] [place] [address] [facility] Glucose [Mass/Vol] 88 mg/dL 70 - 108 mg/dl [facility] Comment on above: Performed at [facility] [address] [place], [place] [id number] [place] [address] Glucose [Mass/Vol] 99 mg/dL 70 - 108 mg/dl [facility] Comment on above: Performed at [facility] [address] [place] [address] [facility] GLUCOSE POCon 02-16-2022 Glucose [Mass/Vol] 116 mg/dL High 70-108 [facility] Comment on above: Performed By: #### P OCGL ####[facility] [address] [place] [address] Glucose [Mass/Vol] 121 mg/dL High 70-108 [facility] Comment on above: Performed By: #### P OCGL #### [address] [address] Glucose [Mass/Vol] 89 mg/dL Normal 70-108 [facility] Comment on above: Performed By: #### C BCND, PT, APTT, BMP, ANION, EGFR1 #### [facility] [address] [address] Glucose [Mass/Vol] 95 mg/dL Normal 70-108 [facility] Comment on above: Performed By: #### C BCND, PT, APTT, BMP, ANION, EGFR1 #### [facility] [address] [place] [address] Glucose [Mass/Vol] 85 mg/dL Normal 70-108 [facility] Comment on above: Performed By: #### C BCND, PT, APTT, BMP, ANION, EGFR1 #### [facility] [address] [place] [address] POCT Glucoseon 02-16-2022 Glucose [Mass/Vol] 121 mg/dL High 70 - 108 mg/dl [facility] Comment on above: Performed at [facility] [address] [place] [address] Interpretation and review of laboratory results Abnormal [facility] POCT glucoseon 02-16-2022 Glucose [Mass/Vol] 116 mg/dL High 70 - 108 mg/dl [facility] Comment on above: Performed at [facility] [address] [place] [address] Interpretation and review of laboratory results Abnormal [facility] Glucose [Mass/Vol] 89 mg/dL 70 - 108 mg/dl [facility] Comment on above: Performed at [facility] [address] [place] [address] Glucose [Mass/Vol] 95 mg/dL 70 - 108 mg/dl [facility] Comment on above: Performed at [facility] [address] [place] [address] Glucose [Mass/Vol] 85 mg/dL 70 - 108 mg/dl [facility] Comment on above: Performed at [facility] [address] [place] [address] ANION GAPon 02-15-2022 Anion gap [Moles/Vol] 8.0 mmol/L Normal 8.0-16.0 [facility] Comment on above: Result Comment: ANIO N GAP = Sodium -(Chloride + CO2) Performed By: #### C BCND, BMP, ANION, EGFR1 ####[facility] [id number] [place] [address] Anion Gapon 02-15-2022 Anion gap [Moles/Vol] 8.0 mmol/L 8.0 - 16.0 meq/L [facility] Comment on above: ANION GAP = Sodium - (Chloride + CO2) Performed at [facility] [address] [place] [address] BASIC METABOL PANELon 2021 Calcium [Mass/Vol] 8.1 mg/dL Low 8.5-10.5 [facility] Comment on above: Performed By: #### P OCGL #### [facility] [address] [place] [address] Chloride [Moles/Vol] 105 mmol/L Normal 98-111 [facility] Comment on above: Performed By: #### P OCGL #### [facility] [address] [place] [address] CO2 [Moles/Vol] 25 mmol/L Normal 23-33 [facility] Comment on above: Performed By: #### P OCGL #### [facility] [address] [place] [address] Creatinine [Mass/Vol] 1.0 mg/dL Normal 0.4-1.2 [facility] Comment on above: Performed By: #### P OCGL #### [facility] [address] [place] [address] Glucose [Mass/Vol] 101 mg/dL Normal 70-108 [facility] Comment on above: Performed By: #### P OCGL #### [facility] [address] [place] [address] 13917 Potassium [Moles/Vol] 3.9 mmol/L Normal 3.5-5.2 [facility] Comment on above: Performed By: #### P OCGL #### [facility] [address] [place] [address] Sodium [Moles/Vol] 138 mmol/L Normal 135-145 [facility] Comment on above: Performed By: #### P OCGL #### [facility] [address] [place] [address] Urea nitrogen [Mass/Vol] 19 mg/dL Normal 7-22 [facility] Comment on above: Performed By: #### P OCGL #### [facility] [address] [place] [address] 15168 Basic Metabolic Panelon 3 Calcium [Mass/Vol] 8.1 mg/dL Low 8.5 - 10. 5 mg/dL [facility] Comment on above: Performed at [facility] [address] [place] [address] Chloride [Moles/Vol] 105 mmol/L 98 - 11 1 meq/L [facility] CO2 [Moles/Vol] 25 mmol/L 23 - 33 meq/L [facility] Creatinine [Mass/Vol] 1 mg/dL 0.4 - 1.2 mg/dL [facility] Glucose [Mass/Vol] 101 mg/dL 70 - 108 mg/dL [facility] Potassium [Moles/Vol] 3.9 mmol/L 3.5 - 5.2 meq/L [facility] Sodium [Moles/Vol] 138 mmol/L 135 - 145 meq/L [facility] Urea nitrogen (BldV) [Mass/Vol] 19 mg/dL 7 - 22 mg/dL [facility] CBCon 02-15-2022 Erythrocyte distribution width (RBC) [Ratio] 13.3 % 11.5 - 14.5 % [facility] Erythrocyte distribution width (RBC) [Ratio] 46.9 fL High 35.0 - 45.0 fL [facility] Hematocrit (Bld) [Volume fraction] 30.1 % Low 42.0 - 52.0 % [facility] Hemoglobin.gastrointes tinal spec 1 Ql (Stl) 9.5 Low [facility] th Interpretation and review of laboratory results Abnormal [facility] MCH (RBC) [Entitic mass] 30.4 pg 26.0 - 33.0 pg [facility] MCHC (RBC) [Mass/Vol] 31.6 g/dL Low [facility] MCV (RBC) [Entitic vol] 96.2 fL High 80.0 - 94.0 fL [facility] Platelet mean volume (Bld) [Entitic vol] 11.7 fL 9.4 - 12.4 fL [facility] Comment on above: Performed at [facility] [address] [place] [address] Platelets (Bld) [#/Vol] 159 10*3/uL [facility] RBC (Bld) [#/Vol] 3.13 10*6/uL Low [facility] WBC (Bld) [#/Vol] 4.3 10*3/uL Low [facility] CBC NO DIFFERENTIALon 2021 Erythrocyte distribution width (RBC) [Ratio] 13.3 % Normal 11.5-14.5 [facility] Comment on above: Performed By: #### P OCGL #### [facility] [address] [place] [address] Hematocrit (Bld) [Volume fraction] 30.1 % Low 42.0-52.0 [facility] Comment on above: Performed By: #### P OCGL #### [address] [address] Hemoglobin (Bld) [Mass/Vol] 9.5 g/dL Low 14.0-18.0 [facility] Comment on above: Performed By: #### P OCGL #### [address] [address] MCH (RBC) [Entitic mass] 30.4 pg Normal 26.0-33.0 [facility] Comment on above: Performed By: #### P OCGL #### [address] [address] MCHC (RBC) [Mass/Vol] 31.6 g/dL Low 32.2-35.5 [facility] Comment on above: Performed By: #### P OCGL #### [address] [address] MCV (RBC) [Entitic vol] 96.2 fL High 80.0-94.0 [facility] Comment on above: Performed By: #### P OCGL #### [address] [address] PLATELET 159 thou/mm3 Normal 130-400 [facility] Comment on above: Performed By: #### P OCGL #### [address] [address] Platelet mean volume (Bld) [Entitic vol] 11.7 fL Normal 9.4-12.4 [facility] Comment on above: Performed By: #### P OCGL #### [address] [address] RBC 3.13 mill/mm3 Low 4.70-6.10 [facility] Comment on above: Performed By: #### P OCGL #### [address] [address] RDW-SD 46.9 fL High 35.0-45.0 [facility] Comment on above: Performed By: #### P OCGL #### [address] [address] WBC 4.3 thou/mm3 Low 4.8-10.8 [facility] Comment on above: Performed By: #### P OCGL #### [facility] [address] [place] [address] GFR, ESTIMATEDon 02-15-2022 GFR/1.73 sq M.predicted MDRD (S/P/Bld) [Vol rate/Area] 75 mL/min/{1.73_m2} Abnormal [facility] Comment on above: Result Comment: [...] By: #### C BCND, BMP, ANION, EGFR1 ####[facility] [address] [place] [address] GLUCOSE POCon 02-15-2022 Glucose [Mass/Vol] 85 mg/dL Normal 70-108 [facility] Comment on above: Performed By: #### P OCGL #### [facility] [address] [place] [address] Glucose [Mass/Vol] 98 mg/dL Normal 70-108 [facility] Comment on above: Performed By: #### C BCND, PT, APTT, BMP, ANION, EGFR1 #### [facility] [address] [place] [address] Glucose [Mass/Vol] 101 mg/dL Normal 70-108 [facility] Comment on above: Performed By: #### P OCGL ####[facility] [address] [place] [address] Glucose [Mass/Vol] 89 mg/dL Normal 70-108 [facility] Comment on above: Performed By: #### P OCGL #### [facility] [address] [place] [address] Glomerular Filtration Rate, Estimatedon 02-15-2022 GFR/1.73 sq M.predicted MDRD (S/P/Bld) [Vol rate/Area] 75 mL/min/{1.73_m2} Abnormal ml/min/1.7 3m2 [facility] Comment on above: Stage Description GF R, [...] Vol. 139 (2) pg 137-147. Performed at [facility] [address] [place] [address] No Panel Informationon 02-15 Interpretation and review of laboratory results Abnormal [facility] POCT glucoseon 02-15-2022 Glucose [Mass/Vol] 85 mg/dL 70 - 108 mg/dl [facility] Comment on above: Performed at [facility] [address] [place] [address] Glucose [Mass/Vol] 98 mg/dL 70 - 108 mg/dl [facility] Comment on above: Performed at [facility] [address] [place] [address] Glucose [Mass/Vol] 101 mg/dL 70 - 108 mg/dl [facility] Comment on above: Performed at [facility] [address] [place] [address] Glucose [Mass/Vol] 89 mg/dL 70 - 108 mg/dl [facility] Comment on above: Performed at [facility] [address] [place] [address] GLUCOSE POCon 02-14-2022 Glucose [Mass/Vol] 90 mg/dL Normal 70-108 [facility] Comment on above: Performed By: #### C BCND, PT, APTT, BMP, ANION, EGFR1 #### [facility] [address] [place] [address] Glucose [Mass/Vol] 100 mg/dL Normal 70-108 [facility] Comment on above: Performed By: #### C BCND, PT, APTT, BMP, ANION, EGFR1 #### [facility] [address] [place] [address] Glucose [Mass/Vol] 86 mg/dL Normal 70-108 [facility] Comment on above: Performed By: #### C BCND, PT, APTT, BMP, ANION, EGFR1 #### [facility] [address] [place] [address] Glucose [Mass/Vol] 94 mg/dL Normal 70-108 [facility] Comment on above: Performed By: #### P OCGL ####[facility] [address] [place] [address] Glucose [Mass/Vol] 79 mg/dL Normal 70-108 [facility] Comment on above: Performed at [facility] [address] [place] [address] Performed By: #### P OCGL #### [facility] [address] [address] No Panel Informationon 02-14 [facility] POCT glucoseon 02-14-2022 Glucose [Mass/Vol] 90 mg/dL 70 - 108 mg/dl [facility] Comment on above: Performed at [facility] [address] [place] [address] [facility] Glucose [Mass/Vol] 100 mg/dL 70 - 108 mg/dl [facility] Comment on above: Performed at [facility] [address] [place] [address] [facility] Glucose [Mass/Vol] 86 mg/dL 70 - 108 mg/dl [facility] Comment on above: Performed at [facility] [address] [place] [address] [place] [address] Glucose [Mass/Vol] 94 mg/dL 70 - 108 mg/dl [facility] Comment on above: Performed at [facility] [address] [place] [address] GLUCOSE POCon 02-13-2022 Glucose [Mass/Vol] 96 mg/dL Normal 70-108 [facility] Comment on above: Performed By: #### P OCGL #### [facility] [address] [place] [address] Glucose [Mass/Vol] 85 mg/dL Normal 70-108 [facility] Comment on above: Performed By: #### C BCND, PT, APTT, BMP, ANION, EGFR1 #### [address] [address] Glucose [Mass/Vol] 95 mg/dL Normal 70-108 [facility] Comment on above: Performed By: #### C BCND, PT, APTT, BMP, ANION, EGFR1 #### [address] [address] Glucose [Mass/Vol] 82 mg/dL Normal 70-108 [facility] Comment on above: Performed By: #### C BCND, PT, APTT, BMP, ANION, EGFR1 #### [place] [address] POCT glucoseon 02-13-2022 Glucose [Mass/Vol] 96 mg/dL 70 - 108 mg/dl [facility] Comment on above: Performed at [facility] [address] [place] [address] Glucose [Mass/Vol] 85 mg/dL 70 - 108 mg/dl [facility] Comment on above: Performed at [facility] [address] [place] [address] Glucose [Mass/Vol] 95 mg/dL 70 - 108 mg/dl [facility] Comment on above: Performed at [facility] [address] [place] [address] Glucose [Mass/Vol] 82 mg/dL 70 - 108 mg/dl [facility] Comment on above: Performed at [facility] [address] [place] [address] ANION GAPon 02-12-2022 Anion gap [Moles/Vol] 9.0 mmol/L Normal 8.0-16.0 [facility] Comment on above: Result Comment: ANIO N GAP = Sodium -(Chloride + CO2) Performed By: #### P OCGL #### [place] [id number] [facility] [employer] 02-12-2022 Anion gap [Moles/Vol] 9.0 mmol/L 8.0 - 16.0 meq/L [facility] Comment on above: ANION GAP = Sodium - (Chloride + CO2) Performed at [facility] [address] [place] [address] BASIC METABOL PANELon 2021 Calcium [Mass/Vol] 8.2 mg/dL Low 8.5-10.5 [facility] Comment on above: Performed By: #### P OCGL #### [facility] [address] [place] [address] Chloride [Moles/Vol] 105 mmol/L Normal 98-111 [facility] Comment on above: Performed By: #### P OCGL #### [facility] [address] [place] [address] CO2 [Moles/Vol] 24 mmol/L Normal 23-33 [facility] Comment on above: Performed By: #### P OCGL #### [facility] [address] [place] [address] Creatinine [Mass/Vol] 0.9 mg/dL Normal 0.4-1.2 [facility] Comment on above: Performed By: #### P OCGL #### [facility] [address] [place] [address] Glucose [Mass/Vol] 66 mg/dL Low 70-108 [facility] Comment on above: Performed By: #### P OCGL #### [address] [address] Potassium [Moles/Vol] 3.9 mmol/L Normal 3.5-5.2 [facility] Comment on above: Performed By: #### P OCGL #### [facility] [address] [address] Sodium [Moles/Vol] 138 mmol/L Normal 135-145 [facility] Comment on above: Performed By: #### P OCGL #### [facility] [address] [place] [address] Urea nitrogen [Mass/Vol] 17 mg/dL Normal 7-22 [facility] Comment on above: Performed By: #### P OCGL #### [facility] [address] [place] [address] Basic Metabolic Panelon 01-18 Calcium [Mass/Vol] 8.2 mg/dL Low 8.5 - 10. 5 mg/dL [facility] Comment on above: Performed at [facility] [address] [place] [address] Chloride [Moles/Vol] 105 mmol/L 98 - 11 1 meq/L [facility] CO2 [Moles/Vol] 24 mmol/L 23 - 33 meq/L [facility] Creatinine [Mass/Vol] 0.9 mg/dL 0.4 - 1.2 mg/dL [facility] Glucose [Mass/Vol] 66 mg/dL Low 70 - 108 mg/dL [facility] Potassium [Moles/Vol] 3.9 mmol/L 3.5 - 5.2 meq/L [facility] Sodium [Moles/Vol] 138 mmol/L 135 - 145 meq/L [facility] Urea nitrogen (BldV) [Mass/Vol] 17 mg/dL 7 - 22 mg/dL [facility] CBCon 02-12-2022 Erythrocyte distribution width (RBC) [Ratio] 13.8 % 11.5 - 14.5 % [facility] Erythrocyte distribution width (RBC) [Ratio] 49.3 fL High 35.0 - 45.0 fL [facility] Hematocrit (Bld) [Volume fraction] 32.0 % Low 42.0 - 52.0 % [facility] Hemoglobin.gastrointes tinal spec 1 Ql (Stl) 9.8 Low [facility] th Interpretation and review of laboratory results Abnormal [facility] MCH (RBC) [Entitic mass] 29.8 pg 26.0 - 33.0 pg [facility] MCHC (RBC) [Mass/Vol] 30.6 g/dL Low [facility] MCV (RBC) [Entitic vol] 97.3 fL High 80.0 - 94.0 fL [facility] Platelet mean volume (Bld) [Entitic vol] 12.3 fL 9.4 - 12.4 fL [facility] Comment on above: Performed at [facility] [address] [place] [address] Platelets (Bld) [#/Vol] 142 10*3/uL [facility] RBC (Bld) [#/Vol] 3.29 10*6/uL Low [facility] WBC (Bld) [#/Vol] 5.1 10*3/uL [facility] CBC NO DIFFERENTIALon 2021 Erythrocyte distribution width (RBC) [Ratio] 13.8 % Normal 11.5-14.5 [facility] Comment on above: Performed By: #### P OCGL #### [address] [address] Hematocrit (Bld) [Volume fraction] 32.0 % Low 42.0-52.0 [facility] Comment on above: Performed By: #### P OCGL #### [address] [address] Hemoglobin (Bld) [Mass/Vol] 9.8 g/dL Low 14.0-18.0 [facility] Comment on above: Performed By: #### P OCGL #### [address] [address] MCH (RBC) [Entitic mass] 29.8 pg Normal 26.0-33.0 [facility] Comment on above: Performed By: #### P OCGL #### [address] [address] MCHC (RBC) [Mass/Vol] 30.6 g/dL Low 32.2-35.5 [facility] Comment on above: Performed By: #### P OCGL #### [address] [address] MCV (RBC) [Entitic vol] 97.3 fL High 80.0-94.0 [facility] Comment on above: Performed By: #### P OCGL #### [address] [address] PLATELET 142 thou/mm3 Normal 130-400 [facility] Comment on above: Performed By: #### P OCGL #### [address] [address] Platelet mean volume (Bld) [Entitic vol] 12.3 fL Normal 9.4-12.4 [facility] Comment on above: Performed By: #### P OCGL #### [address] [address] RBC 3.29 mill/mm3 Low 4.70-6.10 [facility] Comment on above: Performed By: #### P OCGL #### [address] [address] RDW-SD 49.3 fL High 35.0-45.0 [facility] Comment on above: Performed By: #### P OCGL #### [address] [address] WBC 5.1 thou/mm3 Normal 4.8-10.8 [facility] Comment on above: Performed By: #### P OCGL #### [address] [address] GFR, ESTIMATEDon 02-12-2022 GFR/1.73 sq M.predicted MDRD (S/P/Bld) [Vol rate/Area] 85 mL/min/{1.73_m2} Abnormal [facility] Comment on above: Result Comment: [...] 137-147. Performed By: #### P OCGL #### [address] [address] GLUCOSE POCon 02-12-2022 Glucose [Mass/Vol] 95 mg/dL Normal 70-108 [facility] Comment on above: Performed By: #### P OCGL #### [address] [address] Glucose [Mass/Vol] 84 mg/dL Normal 70-108 [facility] Comment on above: Performed By: #### C BCND, PT, APTT, BMP, ANION, EGFR1 #### [facility] [address] [place] [address] Glucose [Mass/Vol] 86 mg/dL Normal 70-108 [facility] Comment on above: Performed By: #### P OCGL ####[facility] [address] [place] [address] Glucose [Mass/Vol] 90 mg/dL Normal 70-108 [facility] Comment on above: Performed By: #### P OCGL ####[facility] [address] [place] [address] Glomerular Filtration Rate, Estimatedon 02-12-2022 GFR/1.73 sq M.predicted MDRD (S/P/Bld) [Vol rate/Area] 85 mL/min/{1.73_m2} Abnormal ml/min/1.7 3m2 [facility] Comment on above: Stage Description GF R, [...] Vol. 139 (2) pg 137-147. Performed at [facility] [address] [place] [address] No Panel Informationon 02-12 Interpretation and review of laboratory results Abnormal [facility] POCT glucoseon 02-12-2022 Glucose [Mass/Vol] 95 mg/dL 70 - 108 mg/dl [facility] Comment on above: Performed at [facility] [address] [place] [address] Glucose [Mass/Vol] 84 mg/dL 70 - 108 mg/dl [facility] Comment on above: Performed at [facility] [address] [place] [address] Glucose [Mass/Vol] 86 mg/dL 70 - 108 mg/dl [facility] Comment on above: Performed at [facility] [address] [place] [address] Glucose [Mass/Vol] 90 mg/dL 70 - 108 mg/dl [facility] Comment on above: Performed at [facility] [address] [place] [address] CBCon 02-11-2022 Erythrocyte distribution width (RBC) [Ratio] 13.7 % 11.5 - 14.5 % [facility] Erythrocyte distribution width (RBC) [Ratio] 48.8 fL High 35.0 - 45.0 fL [facility] Hematocrit (Bld) [Volume fraction] 31.5 % Low 42.0 - 52.0 % [facility] Hemoglobin.gastrointes tinal spec 1 Ql (Stl) 9.8 Low [facility] th Interpretation and review of laboratory results Abnormal [facility] MCH (RBC) [Entitic mass] 30.2 pg 26.0 - 33.0 pg [facility] MCHC (RBC) [Mass/Vol] 31.1 g/dL Low [facility] MCV (RBC) [Entitic vol] 97.2 fL High 80.0 - 94.0 fL [facility] Platelet mean volume (Bld) [Entitic vol] 12.8 fL High 9.4 - 12.4 fL [facility] Comment on above: Performed at [facility] [address] [place] [address] Platelets (Bld) [#/Vol] 122 10*3/uL Low [facility] RBC (Bld) [#/Vol] 3.24 10*6/uL Low [facility] WBC (Bld) [#/Vol] 5.7 10*3/uL [facility] CBC NO DIFFERENTIALon 2021 Erythrocyte distribution width (RBC) [Ratio] 13.7 % Normal 11.5-14.5 [facility] Comment on above: Performed By: #### P OCGL #### [facility] [address] [place] [address] Hematocrit (Bld) [Volume fraction] 31.5 % Low 42.0-52.0 [facility] Comment on above: Performed By: #### P OCGL #### [facility] [address] [place] [address] Hemoglobin (Bld) [Mass/Vol] 9.8 g/dL Low 14.0-18.0 [facility] Comment on above: Performed By: #### P OCGL #### [facility] [address] [place] [address] MCH (RBC) [Entitic mass] 30.2 pg Normal 26.0-33.0 [facility] Comment on above: Performed By: #### P OCGL #### [facility] [address] [place] [address] MCHC (RBC) [Mass/Vol] 31.1 g/dL Low 32.2-35.5 [facility] Comment on above: Performed By: #### P OCGL #### [facility] [address] [place] [address] MCV (RBC) [Entitic vol] 97.2 fL High 80.0-94.0 [facility] Comment on above: Performed By: #### P OCGL #### [facility] [address] [place] [address] PLATELET 122 thou/mm3 Low 130-400 [facility] Comment on above: Performed By: #### P OCGL #### [address] [address] Platelet mean volume (Bld) [Entitic vol] 12.8 fL High 9.4-12.4 [facility] Comment on above: Performed By: #### P OCGL #### [address] [address] RBC 3.24 mill/mm3 Low 4.70-6.10 [facility] Comment on above: Performed By: #### P OCGL #### [address] [address] RDW-SD 48.8 fL High 35.0-45.0 [facility] Comment on above: Performed By: #### P OCGL #### [facility] [address] [place] [address] WBC 5.7 thou/mm3 Normal 4.8-10.8 [facility] Comment on above: Performed By: #### P OCGL #### [facility] [address] [place] [address] GLUCOSE POCon 02-11-2022 Glucose [Mass/Vol] 116 mg/dL High 70-108 [facility] Comment on above: Performed By: #### P OCGL #### [facility] [address] [place] [address] Glucose [Mass/Vol] 87 mg/dL Normal 70-108 [facility] Comment on above: Performed By: #### C BCND, PT, APTT, BMP, ANION, EGFR1 #### [address] [address] Glucose [Mass/Vol] 90 mg/dL Normal 70-108 [facility] Comment on above: Performed By: #### P OCGL #### [facility] [address] [place] [address] Glucose [Mass/Vol] 112 mg/dL High 70-108 [facility] Comment on above: Performed By: #### C BCND, PT, APTT, BMP, ANION, EGFR1 #### [address] [address] POCT Glucoseon 02-11-2022 Glucose [Mass/Vol] 87 mg/dL 70 - 108 mg/dl [facility] Comment on above: Performed at [facility] [address] [place] [address] Glucose [Mass/Vol] 90 mg/dL 70 - 108 mg/dl [facility] Comment on above: Performed at [facility] [address] [place] [address] Glucose [Mass/Vol] 112 mg/dL High 70 - 108 mg/dl [facility] Comment on above: Performed at [facility] [address] [place] [address] Interpretation and review of laboratory results Abnormal [facility] POCT glucoseon 02-11-2022 Glucose [Mass/Vol] 116 mg/dL High 70 - 108 mg/dl [facility] Comment on above: Performed at [facility] [address] [place] [address] Interpretation and review of laboratory results Abnormal [facility] VITAMIN B12 FOLATEon 022 Cobalamin (Vitamin B12) [Mass/Vol] 386 pg/mL Normal 211-911 [facility] Comment on above: Performed By: #### C BCND, PT, APTT, BMP, ANION, EGFR1 #### [employer] [facility] [address] [place] [address] FOLATE 7.5 ng/mL Normal 4.8-24.2 [facility] Comment on above: Performed By: #### C BCND, PT, APTT, BMP, ANION, EGFR1 #### [facility] [address] [place] [address] Vitamin B12 & Folateon 02-11 Cobalamin (Vitamin B12) [Mass/Vol] 386 pg/mL 211 - 911 pg/mL [facility] [employer] Folate 7.5 ng/mL 4.8 - 24.2 ng/mL [facility] [employer] Comment on above: Performed at [facility] [address] [place] [address] [facility] CORTISOLon 02-10-2022 CORTISOL SPECIMEN 60 Minute Normal [facility] Comment on above: Performed By: #### P OCGL #### [facility] [address] [place] [address] ECHO Complete 2D W Doppler W Coloron 02-10-2022 Transthoracic Echocardiography Report (TTE) Demographics Patient Name SUNNY Cox Gender Male MR # [id number] Race Ethnicity Room Number 0025 Date of Study 02/10/2022 Number Date of 1960 Referring Physician Bala Schrader MD Age 61 year(s) Decision Support Manager Lyn Prince, [facility] Interpreting Beata Leahy MD Physician Procedure [...] A' Septal Velocity: (more content not included)... [facility] Armond oCta MD - 02/10/2022 Transthoracic Echocardiography Report (TTE) Demographics Patient Name SUNNY Cox Gender Male MR # [id number] Race Ethnicity Room Number 0025 Date of Study 02/10/2022 Number Date of 1960 Referring Physician Bala Schrader MD Age 61 year(s) Decision Support Manager Lyn Prince [facility] Interpreting Beata Leahy MD Physician Procedure [...] E/E' lateral: 7.08 MR Velocity: 463 cm/s [id number]%3d [employer] Phone: ECHO Complete 2D W Doppler W ColorOrdered By: Armond Cota on 02-10-2022 [employer] Phone: ECHOCARDIOGRAM COMPLETE 2D W DOPPLER W COLORon 02-10-2022 ECHOCARDIOGRAM COMPLETE 2D W DOPPLER W COLOR Transthoracic Echocardiography Report (TTE) Demographics Patient Name SUNNY Cox Gender Male MR # [id number] Race Ethnicity Room Number 0025 Date of Study 02/10/2022 Number Date of 1960 Referring Physician Bala Schrader MD Age 61 year(s) Decision Support Manager Lyn Prince [facility] Interpreting Beata Leahy MD Physician Procedure [...] E/E' lateral: 7.08 MR Velocity: 463 cm/s [id number]%3d%3d Normal [facility] GLUCOSE POCon 02-10-2022 Glucose [Mass/Vol] 113 mg/dL High 70-108 [facility] Comment on above: Performed By: #### C BCND, PT, APTT, BMP, ANION, EGFR1 #### [facility] [address] [place] [address] Glucose [Mass/Vol] 110 mg/dL High 70-108 [facility] Comment on above: Performed By: #### P OCGL #### [facility] [address] [place] [address] Glucose [Mass/Vol] 136 mg/dL High 70-108 [facility] Comment on above: Performed By: #### C BCND, PT, APTT, BMP, ANION, EGFR1 #### [facility] [address] [place] [address] Glucose [Mass/Vol] 125 mg/dL High 70-108 [facility] Comment on above: Performed By: #### P OCGL ####[facility] [address] [place] [address] POCT Glucoseon 02-10-2022 Glucose [Mass/Vol] 113 mg/dL High 70 - 108 mg/dl [facility] Comment on above: Performed at [facility] [address] [place] [address] Interpretation and review of laboratory results Abnormal [facility] Glucose [Mass/Vol] 110 mg/dL High 70 - 108 mg/dl [facility] Comment on above: Performed at [facility] [address] [place] [address] Interpretation and review of laboratory results Abnormal [facility] Glucose [Mass/Vol] 136 mg/dL High 70 - 108 mg/dl [facility] Comment on above: Performed at [facility] [address] [place] [address] Interpretation and review of laboratory results Abnormal [facility] Glucose [Mass/Vol] 125 mg/dL High 70 - 108 mg/dl [facility] Comment on above: Performed at [facility] [address] [place] [address] Interpretation and review of laboratory results Abnormal [facility] TSHon 02-10-2022 Interpretation and review of laboratory results Abnormal [facility] TSH Qn 0.354 m[IU]/L Low [facility] Comment on above: Performed at [facility] [address] [place] [address] TSH THIRD GENERATIONon 02-10 TSH THIRD GENERATION 0.354 uIU/mL Low 0.400-4 .20 0 [facility] Comment on above: Performed By: #### P OCGL #### [facility] [place] [address] CBC WITH DIFFERENTIALon 01-18 ABS BASOPHILS 0.0 thou/mm3 Normal 0.0-0.1 [facility] Comment on above: Performed By: #### C BCND, PT, APTT, BMP, ANION, EGFR1 #### [facility] [employer] [facility] [address] [place] [address] ABS EOSINOPHILS 0.1 thou/mm3 Normal 0.0-0.4 [facility] Comment on above: Performed By: #### C BCND, PT, APTT, BMP, ANION, EGFR1 #### [facility] [employer] [facility] [address] [place] [address] ABS IMMATURE GRANS (IG) 0.02 thou/mm3 Normal 0.00-0.07 [facility] Comment on above: Performed By: #### C BCND, PT, APTT, BMP, ANION, EGFR1 #### [address] [address] ABS LYMPHOCYTES 1.3 thou/mm3 Normal 1.0-4.8 [facility] Comment on above: Performed By: #### C BCND, PT, APTT, BMP, ANION, EGFR1 #### [address] [address] ABS MONOCYTES 0.6 thou/mm3 Normal 0.4-1.3 [facility] Comment on above: Performed By: #### C BCND, PT, APTT, BMP, ANION, EGFR1 #### [address] [address] ABS NEUTROPHILS 4.3 thou/mm3 Normal 1.8-7.7 [facility] Comment on above: Performed By: #### C BCND, PT, APTT, BMP, ANION, EGFR1 #### [address] [address] Basophils/100 WBC (Bld) 0.3 % Normal [facility] Comment on above: Performed By: #### C BCND, PT, APTT, BMP, ANION, EGFR1 #### [address] [address] Eosinophils/100 WBC (Bld) 1.4 % Normal [facility] Comment on above: Performed By: #### C BCND, PT, APTT, BMP, ANION, EGFR1 #### [address] [address] Erythrocyte distribution width (RBC) [Ratio] 13.3 % Normal 11.5-14.5 [facility] Comment on above: Performed By: #### C BCND, PT, APTT, BMP, ANION, EGFR1 #### [address] [address] Hematocrit (Bld) [Volume fraction] 34.3 % Low 42.0-52.0 [facility] Comment on above: Performed By: #### C BCND, PT, APTT, BMP, ANION, EGFR1 #### [place] [address] Hemoglobin (Bld) [Mass/Vol] 10.8 g/dL Low 14.0-18.0 [facility] Comment on above: Performed By: #### C BCND, PT, APTT, BMP, ANION, EGFR1 #### [place] [address] IMMATURE GRANS (IG) 0.3 % Normal [facility] Comment on above: Performed By: #### C BCND, PT, APTT, BMP, ANION, EGFR1 #### [place] [address] Lymphocytes/100 WBC (Bld) 20.2 % Normal [facility] Comment on above: Performed By: #### C BCND, PT, APTT, BMP, ANION, EGFR1 #### [place] [address] MCH (RBC) [Entitic mass] 30.2 pg Normal 26.0-33.0 [facility] Comment on above: Performed By: #### C BCND, PT, APTT, BMP, ANION, EGFR1 #### [place] [address] MCHC (RBC) [Mass/Vol] 31.5 g/dL Low 32.2-35.5 [facility] Comment on above: Performed By: #### C BCND, PT, APTT, BMP, ANION, EGFR1 #### [address] [address] MCV (RBC) [Entitic vol] 95.8 fL High 80.0-94.0 [facility] Comment on above: Performed By: #### C BCND, PT, APTT, BMP, ANION, EGFR1 #### [place] [address] Monocytes/100 WBC (Bld) 9.5 % Normal [facility] Comment on above: Performed By: #### C BCND, PT, APTT, BMP, ANION, EGFR1 #### [address] [address] Neutrophils/100 WBC (Bld) 68.3 % Normal [facility] Comment on above: Performed By: #### C BCND, PT, APTT, BMP, ANION, EGFR1 #### [place] [address] NRBC 0 /100 wbc Normal [facility] Comment on above: Performed By: #### C BCND, PT, APTT, BMP, ANION, EGFR1 #### [place] [address] PLATELET 98 thou/mm3 Low 130-400 [facility] Comment on above: Performed By: #### C BCND, PT, APTT, BMP, ANION, EGFR1 #### [place] [address] Platelet mean volume (Bld) [Entitic vol] 12.9 fL High 9.4-12.4 [facility] Comment on above: Performed By: #### C BCND, PT, APTT, BMP, ANION, EGFR1 #### [place] [address] RBC 3.58 mill/mm3 Low 4.70-6.10 [facility] Comment on above: Performed By: #### C BCND, PT, APTT, BMP, ANION, EGFR1 #### [place] [address] RDW-SD 47.0 fL High 35.0-45.0 [facility] Comment on above: Performed By: #### C BCND, PT, APTT, BMP, ANION, EGFR1 #### [address] [address] WBC 6.3 thou/mm3 Normal 4.8-10.8 [facility] Comment on above: Performed By: #### C BCND, PT, APTT, BMP, ANION, EGFR1 #### [facility] [employer] [address] [place] [address] CBC with Auto Differentialon 02-09-2022 Basophils (Bld) [#/Vol] 0.0 10*3/uL [facility] Basophils/100 WBC (Bld) 0.3 % [facility] Eosinophils Absolute 0.1 [facility] Eosinophils/100 WBC (Bld) 1.4 % [facility] Erythrocyte distribution width (RBC) [Ratio] 13.3 % 11.5 - 14.5 % [facility] Erythrocyte distribution width (RBC) [Ratio] 47 fL High 35.0 - 45.0 fL [facility] Hematocrit (Bld) [Volume fraction] 34.3 % Low 42.0 - 52.0 % [facility] Hemoglobin.gastrointes tinal spec 1 Ql (Stl) 10.8 Low [facility] th Immature Grans (Abs) 0.02 [facility] Immature granulocytes/100 WBC (Bld) 0.3 % [facility] Interpretation and review of laboratory results Abnormal [facility] Lymphocytes Absolute 1.3 [facility] Lymphocytes/100 WBC (Bld) 20.2 % [facility] MCH (RBC) [Entitic mass] 30.2 pg 26.0 - 33.0 pg [facility] MCHC (RBC) [Mass/Vol] 31.5 g/dL Low [facility] MCV (RBC) [Entitic vol] 95.8 fL High 80.0 - 94.0 fL [facility] Monocytes Absolute 0.6 [facility] Monocytes/100 WBC (Bld) 9.5 % [facility] nRBC 0 /100 wbc [facility] Comment on above: Performed at [facility] [address] [place] [address] Platelet mean volume (Bld) [Entitic vol] 12.9 fL High 9.4 - 12.4 fL [facility] Platelets (Bld) [#/Vol] 98 10*3/uL Low [facility] RBC (Bld) [#/Vol] 3.58 10*6/uL Low [facility] Segmented neutrophils/100 WBC (Bld) 68.3 % [facility] Segs Absolute 4.3 [facility] h WBC (Bld) [#/Vol] 6.3 10*3/uL [facility] CORTISOLon 02-09-2022 CORTISOL 15.55 ug/dL Normal [facility] Comment on above: Result Comment: Refe rence ranges AM serum (7-9AM): 4.82-19.5 ug/dl PM serum (3-5PM): 2.47-11.9 ug/dl Performed By: #### P OCGL #### [facility] [address] [address] CORTISOL 21.14 ug/dL Normal [facility] Comment on above: Result Comment: Refe rence ranges AM serum (7-9AM): 4.82-19.5 ug/dl PM serum (3-5PM): 2.47-11.9 ug/dl Performed By: #### P OCGL #### [facility] [address] [address] CORTISOL SPECIMEN 30 Minute Normal [facility] Comment on above: Performed By: #### P OCGL #### [facility] [address] [address] CORTISOL SPECIMEN Baseline Normal [facility] Comment on above: Performed By: #### P OCGL #### [facility] [employer] [address] [address] CORTISOL 7.85 ug/dL Normal [facility] Comment on above: Result Comment: Refe rence ranges AM serum (7-9AM): 4.82-19.5 ug/dl PM serum (3-5PM): 2.47-11.9 ug/dl Performed By: #### P OCGL #### [address] [address] CORTISOL SPECIMEN AM Specimen [facility] Comment on above: Performed By: #### P OCGL #### [facility] [address] [address] CORTISOL 4.35 ug/dL Normal [facility] Comment on above: Result Comment: Refe rence ranges AM serum (7-9AM): 4.82-19.5 ug/dl PM serum (3-5PM): 2.47-11.9 ug/dl Performed By: #### P OCGL #### [employer] [address] [address] Cortisol Totalon 02-09-2022 Cortisol 21.14 ug/dL [facility] Comment on above: Reference ranges AM serum (7-9AM): 4.82-19.5 ug/dl PM serum (3-5PM): 2.47-11.9 ug/dl Cortisol Collection [employer] 60 Minute [employer] Comment on above: Performed at [facility] [address] [place] [address] [employer] Cortisol 15.55 ug/dL [facility] [employer] Comment on above: Reference ranges AM serum (7-9AM): 4.82-19.5 ug/dl PM serum (3-5PM): 2.47-11.9 ug/dl Cortisol Collection [employer] 30 Minute [facility] Comment on above: Performed at [facility] [address] [place] [address] Cortisol 4.35 ug/dL [facility] [employer] Comment on above: Reference ranges AM serum (7-9AM): 4.82-19.5 ug/dl PM serum (3-5PM): 2.47-11.9 ug/dl Cortisol Collection Info AM Specimen [facility] Comment on above: Performed at [address] Cortisol, 0 minuteson 2021 Cortisol 7.85 ug/dL [facility] [employer] Comment on above: Reference ranges AM serum (7-9AM): 4.82-19.5 ug/dl PM serum (3-5PM): 2.47-11.9 ug/dl Cort[facility] [employer] Baseline [employer] Comment on above: Performed at [facility] [address] GLUCOSE POCon 02-09-2022 Glucose [Mass/Vol] 154 mg/dL High 70-108 [facility] Comment on above: Performed By: #### P OCGL #### [facility] [address] [place] [address] Glucose [Mass/Vol] 167 mg/dL High 70-108 [facility] Comment on above: Performed By: #### C BCND, PT, APTT, BMP, ANION, EGFR1 #### [facility] [address] [place] [address] Glucose [Mass/Vol] 121 mg/dL High 70-108 [facility] Comment on above: Performed By: #### P OCGL #### [facility] [address] [place] [address] Glucose [Mass/Vol] 106 mg/dL Normal 70-108 [facility] Comment on above: Performed By: #### P OCGL #### [facility] [address] [place] [address] Glucose [Mass/Vol] 117 mg/dL High 70-108 [facility] Comment on above: Performed By: #### P OCGL #### [facility] [address] [place] [address] POCT Glucoseon 02-09-2022 Glucose [Mass/Vol] 154 mg/dL High 70 - 108 mg/dl [facility] Comment on above: Performed at [facility] [address] [place] [address] Interpretation and review of laboratory results Abnormal [facility] Glucose [Mass/Vol] 167 mg/dL High 70 - 108 mg/dl [facility] Comment on above: Performed at [facility] [address] [place] [address] Interpretation and review of laboratory results Abnormal [facility] Glucose [Mass/Vol] 121 mg/dL High 70 - 108 mg/dl [facility] Comment on above: Performed at [facility] [employer] [facility] [address] [place] [address] Interpretation and review of laboratory results Abnormal [facility] Glucose [Mass/Vol] 106 mg/dL 70 - 108 mg/dl [facility] Comment on above: Performed at [facility] [employer] [facility] [address] [place] [address] Glucose [Mass/Vol] 117 mg/dL High 70 - 108 mg/dl [facility] Comment on above: Performed at [facility] [address] [place] [address] Interpretation and review of laboratory results Abnormal [facility] ANION GAPon 02-08-2022 Anion gap [Moles/Vol] 9.0 mmol/L Normal 8.0-16.0 [facility] Comment on above: Result Comment: ANIO N GAP = Sodium -(Chloride + CO2) Performed By: #### C BCND, PT, APTT, BMP, ANION, EGFR1 #### [facility] [address] [place] [address] Anion Gapon 02-08-2022 Anion gap [Moles/Vol] 9.0 mmol/L 8.0 - 16.0 meq/L [facility] Comment on above: ANION GAP = Sodium - (Chloride + CO2) Performed at [facility] [place] [address] Anion gap [Moles/Vol] 6.0 mmol/L Low 8.0 - 16.0 meq/L [facility] Comment on above: ANION GAP = Sodium - (Chloride + CO2) [place] [address] BASIC METABOL PANELon 2021 Calcium [Mass/Vol] 7.8 mg/dL Low 8.5-10.5 [facility] Comment on above: Performed By: #### C BCND, PT, APTT, BMP, ANION, EGFR1 #### [address] [address] Chloride [Moles/Vol] 108 mmol/L Normal 98-111 [facility] Comment on above: Performed By: #### C BCND, PT, APTT, BMP, ANION, EGFR1 #### [place] [address] CO2 [Moles/Vol] 21 mmol/L Low 23-33 [facility] Comment on above: Performed By: #### C BCND, PT, APTT, BMP, ANION, EGFR1 #### [address] [address] Creatinine [Mass/Vol] 1.0 mg/dL Normal 0.4-1.2 [facility] Comment on above: Performed By: #### C BCND, PT, APTT, BMP, ANION, EGFR1 #### [address] [address] Glucose [Mass/Vol] 112 mg/dL High 70-108 [facility] Comment on above: Performed By: #### C BCND, PT, APTT, BMP, ANION, EGFR1 #### [address] [address] Potassium [Moles/Vol] 4.3 mmol/L Normal 3.5-5.2 [facility] Comment on above: Performed By: #### C BCND, PT, APTT, BMP, ANION, EGFR1 #### [facility] [address] [place] [address] Sodium [Moles/Vol] 138 mmol/L Normal 135-145 [facility] Comment on above: Performed By: #### C BCND, PT, APTT, BMP, ANION, EGFR1 #### [facility] [address] [place] [address] Urea nitrogen [Mass/Vol] 12 mg/dL Normal 7-22 [facility] Comment on above: Performed By: #### C BCND, PT, APTT, BMP, ANION, EGFR1 #### [facility] [address] [place] [address] Basic Metabolic Panelon 01-18 Calcium [Mass/Vol] 7.8 mg/dL Low 8.5 - 10. 5 mg/dL [facility] Comment on above: Performed at [facility] [employer] [facility] [address] [place] [address] Chloride [Moles/Vol] 108 mmol/L 98 - 11 1 meq/L [facility] CO2 [Moles/Vol] 21 mmol/L Low 23 - 33 meq/L [facility] Creatinine [Mass/Vol] 1 mg/dL 0.4 - 1.2 mg/dL [facility] Glucose [Mass/Vol] 112 mg/dL High 70 - 108 mg/dL [facility] Potassium [Moles/Vol] 4.3 mmol/L 3.5 - 5.2 meq/L [facility] Sodium [Moles/Vol] 138 mmol/L 135 - 145 meq/L [facility] Urea nitrogen (BldV) [Mass/Vol] 12 mg/dL 7 - 22 mg/dL [facility] Calcium [Mass/Vol] 7.5 mg/dL Low 8.5 - 10. 5 mg/dL [facility] Comment on above: Performed at [facility] [employer] [facility] [address] [place] [address] Chloride [Moles/Vol] 109 mmol/L 98 - 11 1 meq/L [facility] CO2 [Moles/Vol] 22 mmol/L Low 23 - 33 meq/L [facility] Creatinine [Mass/Vol] 0.8 mg/dL 0.4 - 1.2 mg/dL [facility] Glucose [Mass/Vol] 104 mg/dL 70 - 108 mg/dL [facility] Potassium [Moles/Vol] 3.8 mmol/L 3.5 - 5.2 meq/L [facility] Sodium [Moles/Vol] 137 mmol/L 135 - 145 meq/L [facility] Urea nitrogen (BldV) [Mass/Vol] 12 mg/dL 7 - 22 mg/dL [facility] CBCon 02-08-2022 Erythrocyte distribution width (RBC) [Ratio] 13.4 % 11.5 - 14.5 % [facility] Erythrocyte distribution width (RBC) [Ratio] 48.5 fL High 35.0 - 45.0 fL [facility] Hematocrit (Bld) [Volume fraction] 33.5 % Low 42.0 - 52.0 % [facility] Hemoglobin.gastrointes tinal spec 1 Ql (Stl) 10.2 Low [facility] th Interpretation and review of laboratory results Abnormal [facility] MCH (RBC) [Entitic mass] 30.1 pg 26.0 - 33.0 pg [facility] MCHC (RBC) [Mass/Vol] 30.4 g/dL Low [facility] MCV (RBC) [Entitic vol] 98.8 fL High 80.0 - 94.0 fL [facility] Platelet mean volume (Bld) [Entitic vol] 12.9 fL High 9.4 - 12.4 fL [facility] Comment on above: Performed at [facility] [address] [place] [address] Platelets (Bld) [#/Vol] 89 10*3/uL Low [facility] RBC (Bld) [#/Vol] 3.39 10*6/uL Low [facility] WBC (Bld) [#/Vol] 6.2 10*3/uL [facility] CBC NO DIFFERENTIALon 2021 Erythrocyte distribution width (RBC) [Ratio] 13.4 % Normal 11.5-14.5 [facility] Comment on above: Performed By: #### P OCGL #### [facility] [address] [place] [address] Hematocrit (Bld) [Volume fraction] 33.5 % Low 42.0-52.0 [facility] Comment on above: Performed By: #### P OCGL #### [facility] [address] [place] [address] Hemoglobin (Bld) [Mass/Vol] 10.2 g/dL Low 14.0-18.0 [facility] Comment on above: Performed By: #### P OCGL #### [place] [address] MCH (RBC) [Entitic mass] 30.1 pg Normal 26.0-33.0 [facility] Comment on above: Performed By: #### P OCGL #### [place] [address] MCHC (RBC) [Mass/Vol] 30.4 g/dL Low 32.2-35.5 [facility] Comment on above: Performed By: #### P OCGL #### [place] [address] MCV (RBC) [Entitic vol] 98.8 fL High 80.0-94.0 [facility] Comment on above: Performed By: #### P OCGL #### [place] [address] PLATELET 89 thou/mm3 Low 130-400 [facility] Comment on above: Performed By: #### P OCGL #### [place] [address] Platelet mean volume (Bld) [Entitic vol] 12.9 fL High 9.4-12.4 [facility] Comment on above: Performed By: #### P OCGL #### [place] [address] RBC 3.39 mill/mm3 Low 4.70-6.10 [facility] [place] Comment on above: Performed By: #### P OCGL #### [address] [address] RDW-SD 48.5 fL High 35.0-45.0 [facility] Comment on above: Performed By: #### P OCGL #### [address] [address] WBC 6.2 thou/mm3 Normal 4.8-10.8 [facility] Comment on above: Performed By: #### P OCGL #### [facility] [address] [place] [address] EKG 12 LeadOrdered By: Susan Carrion on 02-08-2022 Atrial Rate 55 BPM [employer] Work Phone: P Billingsley 27 degrees [employer] Work Phone: P-R Interval 162 ms [employer] [facility] Work Phone: Q-T Interval 460 ms [employer] Work Phone: QRS Duration 94 ms [facility] Work Phone: QTc Calculation (Bazett) 440 ms [employer] Work Phone: R Billingsley -22 degrees [employer] Work Phone: T Billingsley 1 degrees [employer] Work Phone: Ventricular Rate 55 BPM [employer] Work Phone: [employer] Work Phone: EKG 12 Leadon 02-08-2022 Sinus bradycardia Otherwise normal ECG When compared with ECG of 23-JAN-2022 11:32, No significant change was found Confirmed by SUSAN CARRION ([id number]) on 02/08/2022 10:35:59 AM [facility] Susan Cody MD - 02/08/2022 Sinus bradycardia Otherwise normal ECG When compared with ECG of 23-JAN-2022 11:32, No significant change was found Confirmed by SUSAN CARRION ([id number]) on 02/08/2022 10:35:59 AM [employer] Work Phone: EKG 12-LEADon 02-08-2022 EKG 12-LEAD 55 55 162 94 460 440 27 -22 1 Sinus bradycardia Otherwise normal ECG When compared with ECG of 23-JAN-2022 11:32, No significant change was found Confirmed by SUSAN CARRION ([id number]) on 02/08/2022 10:35:59 AM [email or web address]?PatientI [id number]&Date=09-02-20&Time=09%3a14%3a41%3a00 &TestType=ECG&Site=3&Outp utType=PDF&Ext=PDF Normal [facility] GFR, ESTIMATEDon 02-08-2022 GFR/1.73 sq M.predicted MDRD (S/P/Bld) [Vol rate/Area] 75 mL/min/{1.73_m2} Abnormal [facility] Comment on above: Result Comment: [...] BCND, PT, APTT, BMP, ANION, EGFR1 #### [facility] [address] [place] [address] GLUCOSE POCon 02-08-2022 Glucose [Mass/Vol] 71 mg/dL Normal 70-108 [facility] Comment on above: Performed By: #### P OCGL ####[facility] [address] [place] [address] Glucose [Mass/Vol] 111 mg/dL High 70-108 [facility] Comment on above: Performed By: #### C BCND, PT, APTT, BMP, ANION, EGFR1 #### [facility] [address] [place] [address] Glucose [Mass/Vol] 66 mg/dL Low 70-108 [facility] Comment on above: Performed By: #### P OCGL #### [facility] [address] [place] [address] Glucose [Mass/Vol] 116 mg/dL High 70-108 [facility] Comment on above: Performed By: #### C BCND, PT, APTT, BMP, ANION, EGFR1 #### [facility] [address] [place] [address] Glucose [Mass/Vol] 68 mg/dL Low 70-108 [facility] Comment on above: Performed By: #### P OCGL #### [facility] [address] [place] [address] Glucose [Mass/Vol] 101 mg/dL Normal 70-108 [facility] Comment on above: Performed By: #### C BCND, PT, APTT, BMP, ANION, EGFR1 #### [facility] [address] [place] [address] Glucose [Mass/Vol] 126 mg/dL High 70-108 [facility] Comment on above: Performed By: #### P OCGL #### [facility] [address] [place] [address] Glomerular Filtration Rate, Estimatedon 02-08-2022 GFR/1.73 sq M.predicted MDRD (S/P/Bld) [Vol rate/Area] 75 mL/min/{1.73_m2} Abnormal ml/min/1.[address] [place] [address] Comment on above: Stage Description GF R, [...] Vol. 139 (2) pg 137-147. Performed at [facility] [address] [place] [address] GFR/1.73 sq M.predicted MDRD (S/P/Bld) [Vol rate/Area] mL/min/{1.73_m2} ml/min/1.[address] [place] [address] Comment on above: Stage Description GF R, [...] Vol. 139 (2) pg 137-147. Performed at [facility] [address] [place] [address] HGB,HCTon 02-08-2022 Hematocrit (Bld) [Volume fraction] 37.3 % Low 42.0-52.0 [facility] Comment on above: Performed By: #### P OCGL #### [facility] [address] [place] [address] Hemoglobin (Bld) [Mass/Vol] 11.4 g/dL Low 14.0-18.0 [facility] Comment on above: Performed By: #### P OCGL #### [place] [address] Hemoglobin and Hematocriton 02-08-2022 Hematocrit (Bld) [Volume fraction] 37.3 % Low 42.0 - 52.0 % [facility] Comment on above: Performed at [facility] [address] [place] [address] Hemoglobin.gastrointes tinal spec 1 Ql (Stl) 11.4 Low [facility] Interpretation and review of laboratory results Abnormal [facility] Hemoglobin and hematocrit, b loodon 02-08-2022 Hematocrit (Bld) [Volume fraction] 36.9 % Low 42.0 - 52.0 % [facility] Comment on above: Performed at [facility] [address] [place] [address] Hemoglobin.gastrointes tinal spec 1 Ql (Stl) 11.6 Low [facility] Interpretation and review of laboratory results Abnormal [facility] No Panel Informationon 02-08 Interpretation and review of laboratory results Abnormal [facility] Interpretation and review of laboratory results Abnormal [facility] POCT Glucoseon 02-08-2022 Glucose [Mass/Vol] 71 mg/dL 70 - 108 mg/dl [facility] Comment on above: Performed at [facility] [address] [place] [address] Glucose [Mass/Vol] 111 mg/dL High 70 - 108 mg/dl [facility] Comment on above: Performed at [facility] [address] [place] [address] Interpretation and review of laboratory results Abnormal [facility] Glucose [Mass/Vol] 66 mg/dL Low 70 - 108 mg/dl [facility] Comment on above: Performed at [facility] [address] [place] [address] Interpretation and review of laboratory results Abnormal [facility] Glucose [Mass/Vol] 116 mg/dL High 70 - 108 mg/dl [facility] Comment on above: Performed at [facility] [address] [place] [address] Interpretation and review of laboratory results Abnormal [facility] Glucose [Mass/Vol] 68 mg/dL Low 70 - 108 mg/dl [facility] Comment on above: Performed at [facility] [address] [place] [address] Interpretation and review of laboratory results Abnormal [facility] Glucose [Mass/Vol] 101 mg/dL 70 - 108 mg/dl [facility] Comment on above: Performed at [facility] [address] [place] [address] Glucose [Mass/Vol] 126 mg/dL High 70 - 108 mg/dl [facility] Comment on above: Performed at [facility] [address] [place] [address] Interpretation and review of laboratory results Abnormal [facility] PROCALCITONINon 02-08-2022 PROCALCITONIN 0.08 ng/mL Normal 0.01-0.09 [facility] Comment on above: Result Comment: Susp ected [...] entered into the Change in Procalcitonin Calculator (www.epwvsa-xoi-ponumjsorf.MobPanel) to determine the patient's Mortality Risk Prognosis. In healthy neonates, plasma Procalcitonin (PCT) concentrations increase gradually after , reaching peak values at about 24 hours of age then decrease to normal values below 0.5 ng/mL by 48-72 hours of age. Performed By: #### P OCGL #### [facility] [address] [place] [address] Procalcitoninon 02-08-2022 Procalcitonin 0.08 ng/mL 0.01 - 0.09 ng/mL [facility] Comment on above: Suspected Sepsis: <0.50 ng/mL [...] entered into the Change in Procalcitonin Calculator (www.fevxmc-nqh-qqudvfldhg.MobPanel) to determine the patient's Mortality Risk Prognosis. In healthy neonates, plasma Procalcitonin (PCT) concentrations increase gradually after , reaching peak values at about 24 hours of age then decrease to normal values below 0.5 ng/mL by 48-72 hours of age. Performed at [facility] [address] [place] [id number] [place] [address] SCAN OF BLOOD SMEARon 2021 SCAN OF BLOOD SMEAR see below Normal [facility] Comment on above: Result Comment: Sony stafford Exceeded; Scan of Differential Slide Performed Performed By: #### P OCGL #### [facility] [address] [place] [address] Scan of Blood Smearon 2021 SCAN OF BLOOD SMEAR see below [facility] Comment on above: Criteria Exceeded; S can of Differential Slide Performed Performed at [facility] [address] [place] [address] [employer] XR CHEST PORTABLEon 02-09-20 22 Prominent left basil ar opacity as evidence for atelectasis and/or infiltrate. This report has been created using voice recognition software. It may contain minor errors which are inherent in voice recognition technology. Final report electronically signed by Dr. Romel Maldonado DO, MD on 02/08/2022 10:26 AM [facility] Romel Sneed DO - 02/08/2022 PROCEDURE: XR CHEST PORTABLE [...] Maldonado DO, MD on 02/08/2022 10:26 AM [employer] Phone: Radiology Study observation (narrative) [employer] Phone: XR CHEST PORTABLEOrdered By: Romel Maldonado on 02-08-2022 [employer] Phone: GLUCOSE POCon 02-07-2022 Glucose [Mass/Vol] 132 mg/dL High 70-108 [facility] Comment on above: Performed By: #### C BCND, PT, APTT, BMP, ANION, EGFR1 #### [facility] [address] [place] [address] Glucose [Mass/Vol] 118 mg/dL High 70-108 [facility] Comment on above: Performed By: #### C BCND, PT, APTT, BMP, ANION, EGFR1 #### [facility] [address] [place] [address] Glucose [Mass/Vol] 77 mg/dL Normal 70-108 [facility] Comment on above: Performed By: #### P OCGL #### [place] [address] POCT Glucoseon 02-07-2022 Glucose [Mass/Vol] 132 mg/dL High 70 - 108 mg/dl [facility] Comment on above: Performed at [facility] [address] [place] [address] Interpretation and review of laboratory results Abnormal [facility] Glucose [Mass/Vol] 118 mg/dL High 70 - 108 mg/dl [facility] Comment on above: Performed at [facility] [address] [place] [address] Interpretation and review of laboratory results Abnormal [facility] [employer] Glucose [Mass/Vol] 77 mg/dL 70 - 108 mg/dl [facility] Comment on above: Performed at [facility] [address] [place] [address] [facility] TYPE AND SCREENon 02-07-2022 ABO A [facility] Rh Factor Negative [facility] [facility] TYPE AND SCREEN CAPTUREon ABO CAPTURE A Normal [facility] Comment on above: Performed By: #### C BCND, PT, APTT, BMP, ANION, EGFR1 #### [facility] [address] [place] [address] INDIRECT ARVIN CAPTURE Negative Normal [facility] Comment on above: Performed By: #### C BCND, PT, APTT, BMP, ANION, EGFR1 #### [facility] [address] [place] [address] RH CAPTURE (2 D CLONES) Negative Normal [facility] Comment on above: Performed By: #### C BCND, PT, APTT, BMP, ANION, EGFR1 #### [place] [address] XR LUMBAR SPINE 1 VWon 02-07 XR [...] Wicho Allen MD 02/07/22 Final result Normal [facility] Postop appearance of the lumbar spine. This report has been created using voice recognition software. It may contain minor errors which are inherent in voice recognition technology. Final report electronically signed by Dr. Wicho Allen on 02/07/2022 2:28 PM [facility] MOBILE LATERAL LUMBA R SPINE: CLINICAL INFORMATION: L2 S1 decompression, posterior COMPARISON: Earlier film same date, 1120 hours. TECHNIQUE: A single lateral mobile view of the lumbar spine was obtained following surgery performed by Dr. Loza. FINDINGS: Posterior lumbar fusion has been performed, with the pedicle screws and rods extending from L2 to S1. The lumbar vertebra are normally aligned. [facility] Wicho Heredia MD - 02/07/2022 MOBILE LATERAL [...] Dr. Wicho Allen on 02/07/2022 2:28 PM [employer] Phone: Lateral film of the lumbar spine during surgery. Please refer to the operative note for further details. This report has been created using voice recognition software. It may contain minor errors which are inherent in voice recognition technology. Final report electronically signed by Dr Milton Way on 02/07/2022 2:17 PM [facility] Milton Somers MD - 02/07/2022 PROCEDURE: XR [...] Dr Milton Way on 02/07/2022 2:17 PM [employer] Phone: Radiology Study observation (narrative) [employer] Phone: Radiology Study observation (narrative) [employer] Phone: XR LUMBAR SPINE 1 VWOrdered By: Wicho Allen on 02-07-2022 [employer] Phone: XR LUMBAR SPINE 1 VWOrdered By: Milton Way on 02-07-2022 [employer] ANION GAPon 01-23-2022 Anion gap [Moles/Vol] 10.0 mmol/L Normal 8.0-16.0 [facility] Comment on above: Result Comment: ANIO N GAP = Sodium -(Chloride + CO2) Performed By: #### P OCGL #### [facility] [address] [place] [address] APTTon 01-23-2022 aPTT Coag (Bld) [Time] 35.1 s Normal 22.0-38.0 [facility] Comment on above: Result Comment: Ther apeutic Heparin Reference Range= 60-95 seconds (corresponds to 0.3 to 0.7 u/mL Anti-Xa factor activity) Performed By: #### C BCND, PT, APTT, BMP, ANION, EGFR1 #### [facility] [address] [place] [address] BASIC METABOL PANELon 2021 Calcium [Mass/Vol] 9.8 mg/dL Normal 8.5-10.5 [facility] Comment on above: Performed By: #### C BCND, PT, APTT, BMP, ANION, EGFR1 #### [address] [address] Chloride [Moles/Vol] 104 mmol/L Normal 98-111 [facility] Comment on above: Performed By: #### C BCND, PT, APTT, BMP, ANION, EGFR1 #### [address] [address] CO2 [Moles/Vol] 29 mmol/L Normal 23-33 [facility] Comment on above: Performed By: #### C BCND, PT, APTT, BMP, ANION, EGFR1 #### [address] [address] Creatinine [Mass/Vol] 1.0 mg/dL Normal 0.4-1.2 [facility] Comment on above: Performed By: #### C BCND, PT, APTT, BMP, ANION, EGFR1 #### [address] [address] Glucose [Mass/Vol] 87 mg/dL Normal 70-108 [facility] Comment on above: Performed By: #### C BCND, PT, APTT, BMP, ANION, EGFR1 #### [address] [address] Potassium [Moles/Vol] 4.6 mmol/L Normal 3.5-5.2 [facility] Comment on above: Performed By: #### C BCND, PT, APTT, BMP, ANION, EGFR1 #### [facility] [address] [place] [address] Sodium [Moles/Vol] 143 mmol/L Normal 135-145 [facility] Comment on above: Performed By: #### C BCND, PT, APTT, BMP, ANION, EGFR1 #### [facility] [place] [address] Urea nitrogen [Mass/Vol] 21 mg/dL Normal 7-22 [facility] Comment on above: Performed By: #### C BCND, PT, APTT, BMP, ANION, EGFR1 #### [place] [address] CBC NO DIFFERENTIALon 2021 Erythrocyte distribution width (RBC) [Ratio] 13.7 % Normal 11.5-14.5 [facility] Comment on above: Performed By: #### C BCND, PT, APTT, BMP, ANION, EGFR1 #### [place] [address] Hematocrit (Bld) [Volume fraction] 51.9 % Normal 42.0-52.0 [facility] Comment on above: Performed By: #### C BCND, PT, APTT, BMP, ANION, EGFR1 #### [place] [address] Hemoglobin (Bld) [Mass/Vol] 16.3 g/dL Normal 14.0-18.0 [facility] Comment on above: Performed By: #### C BCND, PT, APTT, BMP, ANION, EGFR1 #### [place] [address] MCH (RBC) [Entitic mass] 30.1 pg Normal 26.0-33.0 [facility] Comment on above: Performed By: #### C BCND, PT, APTT, BMP, ANION, EGFR1 #### [place] [address] MCHC (RBC) [Mass/Vol] 31.4 g/dL Low 32.2-35.5 [facility] Comment on above: Performed By: #### C BCND, PT, APTT, BMP, ANION, EGFR1 #### [place] [address] MCV (RBC) [Entitic vol] 95.8 fL High 80.0-94.0 [facility] Comment on above: Performed By: #### C BCND, PT, APTT, BMP, ANION, EGFR1 #### [address] [address] PLATELET 149 thou/mm3 Normal 130-400 [facility] Comment on above: Performed By: #### C BCND, PT, APTT, BMP, ANION, EGFR1 #### [address] [address] Platelet mean volume (Bld) [Entitic vol] 12.6 fL High 9.4-12.4 [facility] Comment on above: Performed By: #### C BCND, PT, APTT, BMP, ANION, EGFR1 #### [address] [address] RBC 5.42 mill/mm3 Normal 4.70-6.10 [facility] Comment on above: Performed By: #### C BCND, PT, APTT, BMP, ANION, EGFR1 #### [address] [address] RDW-SD 48.8 fL High 35.0-45.0 [facility] Comment on above: Performed By: #### C BCND, PT, APTT, BMP, ANION, EGFR1 #### [address] [address] WBC 5.8 thou/mm3 Normal 4.8-10.8 [facility] Comment on above: Performed By: #### C BCND, PT, APTT, BMP, ANION, EGFR1 #### [place] [address] EKG 12-LEADon 01-23-2022 EKG 12-LEAD 55 55 168 90 438 419 24 -23 Sinus bradycardia Otherwise normal ECG No previous ECGs available Confirmed by BALA SCHRADER MD ([id number]) on 01/23/2022 7:54:09 PM [email or web address]?PatientI [id number]&Date=04-21-20 22&Time=11%3a32%3a52%3a00 &TestType=ECG&Site=3&Outp utType=PDF&Ext=PDF Normal [facility] GFR, ESTIMATEDon 01-23-2022 GFR/1.73 sq M.predicted MDRD (S/P/Bld) [Vol rate/Area] 75 mL/min/{1.73_m2} Abnormal [facility] Comment on above: Result Comment: [...] 137-147. Performed By: #### P OCGL #### [place] [address] HEMOGLOBIN A1Con 01-23-2022 Glucose [Mass/Vol] 99 mg/dL Normal 70-126 [facility] Comment on above: Performed By: #### C BCND, PT, APTT, BMP, ANION, EGFR1 #### [facility] [address] [place] [address] HbA1c (Bld) [Mass fraction] 5.3 % Normal 4.4-6.4 [facility] Comment on above: Performed By: #### C BCND, PT, APTT, BMP, ANION, EGFR1 #### [place] [address] NASAL COMPLETE SCREEN RT-PCR on 01-23-2022 MRSA SCREEN RT-PCR Positive Abnormal [facility] Comment on above: Result Comment: MRSA TARGET DNA DETECTED by Real Time - Polymerase Chain Reaction. A positive test result does not necessarily indicate the presence of viable organisms. It is, however, presumptive for the presence of MRSA DNA. . Performed By: #### P OCGL #### [place] [address] SA SCREEN RT-PCR Positive Abnormal [facility] Comment on above: Result Comment: Stap hylococcus aureus (SA) target DNA DETECTED by Real Time - Polymerase Chain Reaction. A positive test result does not necessarily indicate the presence of viable organisms. It is, however presumptive for the presence of SA DNA. Performed By: #### P OCGL #### [facility] [address] [place] [address] PROTHOMBIN TIMEon 01-23-2022 INR Coag (Bld) [Relative time] 1.06 {INR} Normal 0.85-1.13 [facility] Comment on above: Result Comment: ---- -----INDICATION INR Reference Range DVT, PE, AF, AMI, tissue heart valve 2.0 to 3.0 Mechanical prosthetic valves 2.5 to 3.5 Performed By: #### C BCND, PT, APTT, BMP, ANION, EGFR1 #### [facility] [address] [place] [address] [facility] CARDIAC STRESS/REST INJE CTIONon 09-05-2021 [facility] CARDIAC STRESS/REST INJECTION Patient Name: ALISIA CORREA STUDY: MYOCARDIAL PERFUSION STRESS TEST WITH LEXISCAN Performing facility: [facility], [address] [place] [address], [address], [address] Provider: Ren Watson MD, [facility] PCP: Dr. Ellen Crabtree Supervising provider: Milagros Mcnally [facility], [facility] INDICATION: Chest Pain; Dyspnea HISTORY: Gender: M; Age: 60 y/o ; Height: 0 cm; Weight: 0 kg. High Cholesterol; Chest Pain; Syncope; Parkinson's Currently smoking. COMPARISON: Previous nuclear testing completed at [facility]. ACCESSION NUMBER(S): [id number]; [id number]; [id number] ORDERING CLINICIAN: REN WATSON TECHNIQUE: ONE DAY [...] Electronically signed by: REN WATSON MD Normal [facility] No Panel Informationon 09-05 Normal -[facility] [address] [place] Work Phone: [...] IO EKG Electrocardiogram- 12 Lead; Status:Complete; Done: [id number] Class 1 obesity with body mass index [...] we can help. You may also call [phone] for free resources and assistance.; Status:Complete - [...] of Parkinson's disease followed by neurology from [facility] on medical therapy. The patient has been [...] PCP. 7?Parkinson's disease followed by neurology from [facility]. 8?obesity, encouraged the patient to reduce caloric [...] History o (more content not included)... Normal [facility] Tobacco Screening.on 021 Fall risk assessment b) One or more fall s in the last year [facility] [address] DO Work Phone: Tobacco use status CP a) Yes [facility] [address] DO Work Phone: Tobacco Screening. Yes [facility] 250 DO Work Phone: CT C-SPINE W RECON DATA -NBo n 09-17-2020 CT C-SPINE W RECON DATA -NB * * *Final Report* * * DATE OF EXAM: Sep 17 2020 12:01PM [facility] 0478 - CT C-SPINE W [...] Counting reference: Craniocervical junction. Anatomic Variants: None. [employer] Vehicle Infantryman (topogram) images: Postop changes of the bland. [...] vertebrae with counting from the craniocervical junction. Interactive Designer: PSC[employer] Transcribe Date/Time: Sep 17 2020 12:05P Dictated by : NICO MARTIN MD This examination was interpreted and the report reviewed and electronically signed by: NICO MARTIN MD on Sep 17 2020 12:08PM EST [id number] Normal [facility] CTA HEAD WO/W IVCONon 2019 CTA HEAD WO/W IVCON * * *Final Report* * * DATE OF EXAM: Sep 17 2020 12:01PM [facility] 0023 - CTA HEAD WO/W [...] Applicable Spot Sign Number: Not Applicable NECK: Fighting Vehicle Infantryman (topogram) images: Postop changes of ACDF at [...] neck arteries. Essentially normal noncontrast CT brain. 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 Essentially normal noncontrast CT brain. Interactive Designer: PSCCharlee Transcribe Date/Time: Sep 17 2020 11:56A Dictated by : NICO MARTIN MD This examination was interpreted and the report reviewed and electronically signed by: NICO MARTIN MD on Sep 17 2020 12:09PM EST [id number] [facility] PROGRESSon 09-17-2020 PROGRESS HNO ID: [id number] Author: NIKKIE Brownlee Service: Radiology Author Type: Clinical Carpet Jack Type: Progress Notes Filed: 09/17/2020 11:40 AM [...] NIKKIE Brownlee September 17, 2020 11:39 AM [facility] Telephone (AVXRPR) ----- SUNNYALISIA Kenny ([id number]) 1960 M Date Time Provider Department 09/11/20 [...] More... Hyperlipidemia [E78.5] 12/07/2017 More... Ulcerative lesion [ZRP0073] 12/07/2017 07/21/2019 Shoulder arthritis [M19.019] 12/29/2017 Status [...] gammopathy of unknown signific*09/15/2018 PD (Parkinson's disease) ([facility]) [G20] 04/13/2019 More... Dysphagia [R13.10] 04/13/2019 Psychosis [...] Encounter Status:Closed by MAKI JEONG on 09/11/[address] [facility] [address] LUMBAR SPINE WO IVCONon 1 [facility] No Panel Informationon 06-[address] [facility] [address] THORACIC SPINE WO IVCONon 06-15-2020 [facility] ALLIED HEALTHon 05-04-2020 ALLIED HEALTH HNO ID: [id number] Author: Daniela (Rn) ALFONSO Castro Service: Infection Prevention Author Type: Registered Nurse Type: Allied Health Filed: 05/04/2020 8:19 AM Note Text: ISOLATION NOTE Admission Date: 05/03/2020 Type of Isolation Recommended: Contact Precautions (Mineral Isolation Sign) Indication: Carbapenem-resistant Enterobacteriaceae (CRE) Date Isolation Initiated: 05/04/2020 Anticipated Duration of Isolation: Duration of hospitalization Type and Date of Positive Test(s): urine culture 10/18/2019 SIGNATURE: Daniela Castro RN MSN PATIENT NAME: Alisia Correa DATE: May 04, 2020 TIME: 8:17 AM PAGER/CONTACT #: Merrill [phone] [facility] Basic Metabolic Panlon 05-04 Anion gap [Moles/Vol] 8 mmol/L Low 9-18 [facility] Calcium [Mass/Vol] 8.4 mg/dL Low 8.5-10.2 [facility] Chloride [Moles/Vol] 103 mmol/L Normal 97-105 [facility] CO2 [Moles/Vol] 25 mmol/L Normal 22-30 [facility] Creatinine [Mass/Vol] 1.11 mg/dL Normal 0.73-1.22 [facility] eGFR- Amer. >60 Normal [facility] GFR/1.73 sq M predicted among non-blacks MDRD (S/P/Bld) [Vol rate/Area] mL/min/{1.73_m2} Normal [facility] Comment on above: Result Comment: eGFR [...] GFR. Glucose [Mass/Vol] 100 mg/dL High 74-99 [facility] Comment on above: Result Comment: The [place] Diabetes Association (ADA) provides guidance for cutoff [...] Standards of Medical Care in Diabetes 2016, [place] [employer]. Diabetes Care. 2016.39(Suppl 1). Potassium [Moles/Vol] 4.1 mmol/L Normal 3.7-5.1 [facility] Sodium [Moles/Vol] 136 mmol/L Normal 136-144 [facility] ospital Urea nitrogen [Mass/Vol] 16 mg/dL Normal 9-24 [facility] CASE MANAGEMon 05-04-2020 CASE MANAGEM HNO ID: [id number] Author: Ashley (Rn) ALFONSO Sands Service: Care Management Author Type: Registered Nurse Type: Care Mgt Progress Note Filed: 05/04/2020 11:01 AM Note Text: CARE MANAGEMENT PROGRESS NOTE SERVICE DATE: 05/04/2020 SERVICE TIME: 10:59 AM LOS: 0 days Spoke with Titi at [facility] outpatient PT. Appointment scheduled for Monday 05/07 at 1:30 PM. Patient to arrive 15 minutes early. Patient notified. SIGNATURE: Ashley Sands RN PATIENT NAME: Alisia Correa DATE: May 04, 2020 TIME: 10:59 AM PAGER/CONTACT #: [phone] [facility] CASE MGT INIT [facility] 2019 CASE MGT INIT [facility] HNO ID: [id number] Author: Ashley (Rn) ALFONSO Sands Service: Care Management Author Type: Registered Nurse Type: Care Mgt Initial Assessment Filed: 05/04/2020 10:16 AM Note Text: CARE MANAGEMENT: ASSESSMENT AND DISCHARGE PLAN SERVICE DATE: May 04, 2020 SERVICE TIME: 10:15 AM PRIMARY CARE PHYSICIAN: Ellen Crabtree DO ADMISSION STATUS: Extended Recovery MEDICAL: [employer] MEDICARE PPO Patient/Government Program Manager Stated Goals: To have reduction in [...] Current Advance Directive: Health Care Power of Cable Splicing Technician;Living Will In Chart: No Online Trader Attempted to Assist with AD Completion: Yes [...] Information Primary Emergency Contact: Dipti Correa Address: [address] [place] [address] Mobile Relation: Spouse Supportive Patient Contact:: Yes [...] for meeting these needs: Outpatient therapy at [facility] Patient's perception of need for this admission: hip replacement Medication Adherance I am convinced of the importance of my prescription medication: 0 - Agree Completely I worry that my prescription medication will do more harm than good to me : 0 - Disagree Completely I feel financially burdened by my ryv-zx-pinpin expenses for my prescription medication:: 0 - Disagree Completely Risk Score: 0 Patient is categorized as: Low risk < 2 Are you interested in bedside delivery of your medications? Yes Is Patient Psychosocially Complex?: No ASSESSMENT AND PLAN: Medical Needs: Medical Needs: None Psychosocial Needs: Psychosocial Needs: None FREEDOM OF CHOICE EXPLAINED: [place] of Choice Given: No Reason Not Given: No placements necessary POTENTIAL TRANSITION PLANS Outpatient Therapy Pt from home with spouse. Plan is Outpatient PT at [facility]. Patient does not have an appointment. Call placed to [facility] to schedule appointment. Waiting for return call. SIGNATURE: Ashley Sands RN PATIENT NAME: Alisia Correa DATE: May 04, 2020 TIME: 10:14 AM PAGER/CONTACT #: [phone] Normal [facility] CBCon 05-04-2020 Absolute nRBC <0.01 Normal [facility]0.[facility] distribution width (RBC) [Ratio] 14.1 % Normal 11.5-15.0 [facility] Hematocrit (Bld) [Volume fraction] 39.3 % Normal 39.0-51.0 [facility] Hemoglobin (Bld) [Mass/Vol] 12.6 g/dL Low 13.0-17.0 [facility] MCH (RBC) [Entitic mass] 30.1 pG Normal 26.0-34.0 [facility] MCHC (RBC) [Mass/Vol] 32.1 g/dL Normal 30.5-36.0 [facility] MCV (RBC) [Entitic vol] 94.0 fL Normal 80.0-100.0 [facility] Platelet mean volume (Bld) [Entitic vol] 12.8 fL High 9.0-[facility].7 [facility] Platelets (Bld) [#/Vol] 134 10*3/uL Low 150-400 [facility] RBC (Bld) [#/Vol] 4.18 10*6/uL Low 4.20-6.00 [facility] WBC (Bld) [#/Vol] 7.60 10*3/uL Normal 3.70-11.00 [facility] NURSING PROGon 05-04-2020 NURSING PROG HNO ID: [id number] Author: Renae (Rn) ALFONSO Greco Service: ? [...] note was completed by: Renae Greco RN [facility] PLAN OF CAREon 05-04-2020 PLAN OF CARE HNO ID: [id number] Author: Rita Arias (Liner Worker) Service: ? Author Type: ? Type: Plan [...] ointment Commonly known as: BACTROBAN Rita Arias (Arrogene) PAGER: yvan May 04, 2020 4:29 PM [facility] PROGRESSon 05-04-2020 PROGRESS HNO ID: [id number] Author: Steven Guevara Jr. Service: Orthopaedic Surgery [...] Intervertebral Disc Without Myelopathy SPRAIN OF NECK (3/30/4) Displacement of Cervical Intervertebral Disc Without Myelopathy [...] Chronic Pain Syndrome Copd With Chronic Bronchitis ([facility]) Arthritis of Knee Primary Osteoarthritis of Right [...] Gammopathy of Unknown Significance) Pd (Parkinson's Disease) ([facility]) Dysphagia Psychosis Due to Parkinson's Disease ([facility]) Osteoarthritis of Left Hip Open Wound of [...] 1751 -- 05/03/20 1800 pneumatic compression stockings ([place], [place]) 05/03/20 1800 graduated compression stockings ([place]) 05/03/20 1800 activity - mobilize patient ([place] 05/03/20 1800 activity - [place] 05/03/20 1800 activity - mobilize [place] VTE Prophylaxis: VTE prophylaxis appropriate POST OPERATIVE COMPLICATIONS: Complicated by: uneventful/none SIGNATURE: Steven Guevara Jr, MD PATIENT NAME: Alisia Correa DATE: May 04, 2020 TIME: 7:54 AM PAGER[facility]CONTACT #: [phone] [facility] HNO ID: [id number] Author: Nusrat JerryOt/Kali Gallegos Service: Occupational Therapy Author Type: Occupational Therapist Type: Therapy (PT/OT/Speech/Resp) Filed: 05/04/2020 1:20 PM Note Text: Occupational Therapy SERVICE DATE: 05/04/2020 SERVICE TIME: 1145 to 1251 ROOM: [place] [address] Recommended Discharge Disposition: Home Anticipated Discharge Needs: [...] of daily living (ADL) Interventions Provided: Evaluation;Self Skilled Nursing Management (03325) $ Evaluation-Low (80150) Billed Units: 1 unit Self Skilled Nursing Management (00834) Treatment Minutes: 51 3 units Skilled Intervention(s): [...] car transfer with instructions given to have assembly line driver (as Patient is not allowed to [...] Environment Patient Lives With: Spouse Assistance Available: horse race timer(spouse works horse race timer but workplace is nearby and flexib le) Entry To Home: With Rail;Stairs Number Of Stairs Into Home: 2 Number Of Stairs To Bed/Bath: 1st floor bed and bath Tub/Shower Type: WIS with shower chair, grab bars, HHS Laundry: 1ST FLOOR Equipment Owned: Cane;Hand Held Shower;Grab Bars-Shower;Standard Walker;Commode-Raised;Tammy wer Chair;Lift Chair;ADL Kit;Air Tucker;Wheeled Walker Prior Functional Level: Within Functional Limits Prior Functional Level Comments: LEAD RADIATION THERAPIST, 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, IADL's, amb usually without AD, but had to use RW 1 week LEAD RADIATION THERAPIST due to being off OA meds OBJECTIVE: [...] May 04, 2020 TIME: 1:08 PM Normal [facility] THERAPY NT HNO ID: [id number] Author: Massiel JerryPtSajan Russell PT Service: Physical Therapy Author Type: Physical Therapist Type: Therapy (PT/OT/Speech/Resp) Filed: 05/04/2020 11:30 AM Note Text: Physical Therapy Evaluation SERVICE DATE: 05/04/2020 SERVICE TIME: 1008 to 1050 ROOM: [place] [address] Recommended Discharge Disposition: Outpatient Physical Therapy Anticipated [...] Diagnosis: Reduced mobility-other Interventions Provided: Evaluation;Therapeutic Exercise (89620);Therapeutic Activity (12695);Gait Training (42651) $ Evaluation-Moderate (02401) Billed Units: 1 unit Therapeutic Exercise (53028) Treatment Minutes: 6 Skilled Intervention(s): Instruction in therapeutic exercise per THR protocol: AP, QS, GS, HS, abd, LAQ Verbal and tactile cuing provided for each. Written handouts provided and reviewed with patient today Therapeutic Activity (42757) Treatment Minutes: 10 1 unit Skilled Intervention(s): [...] 2/3 precautions without cues today Gait Training (35368) Treatment Minutes: 11 1 unit Skilled Intervention(s): [...] Environment Patient Lives With: Spouse Assistance Available: horse race timer(spouse works horse race timer but workplace is nearby and flexib ) Entry To Home: With Rail;Stairs Number Of Stairs Into Home: 2 Number Of Stairs To Bed/Bath: 1st floor bed and bath Tub/Shower Type: WIS with shower chair, grab bars, HHS Laundry: 1ST FLOOR Equipment Owned: Cane;Hand Held Shower;Grab Bars-Shower;Standard Walker;Commode-Raised;Tammy wer Chair;Lift Chair;ADL Kit;Air Tucker;Wheeled Walker Prior Functional Level: Within Functional Limits Prior Functional Level Comments: LEAD RADIATION THERAPIST, 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, IADL's, amb usually without AD, but had to use RW 1 week LEAD RADIATION THERAPIST due to being off OA meds OBJECTIVE: [...] Deviations/Observations: Adriana decreased;Non-functional gait speed;Step length decreased -M: 7: Walk 25 feet or more Please see discipline specific clinical documentation flowsheet for complete details for this therapy evaluation/treatment. SIGNATURE: Massiel Russell PT PATIENT NAME: Alisia Correa DATE: May 04, 2020 TIME: 11:21 AM [facility] ANES POSTPROC EVALon 020 ANES POSTPROC EVAL HNO ID: [id number] Author: Jac Leon Service: ? Author Type: Physician Type: Anesthesia Postprocedure Evaluation Filed: 05/03/2020 4:28 PM Note Text: POST ANESTHESIA EVALUATION NOTE : 1960 Procedure Summary Date: 05/03/20 Room / Location: OR / AV OR Anesthesia Start: 1245 Anesthesia Stop: 6 Procedure: ARTHROPLASTY REPLACE JOINT TOTAL HIP (Right [...] May 03, 2020 TIME: 4:28 PM CSN: [id number] [facility] ANES PRE-OPon 05-03-2020 ANES PRE-OP HNO ID: [id number] Author: Coreen Ryan Service: ? Author Type: [...] May 03, 2020 TIME: 10:37 AM CSN: [id number] Normal [facility] Basic Metabolic Panlon 05-03 Anion gap [Moles/Vol] 8 mmol/L Low 9-18 [facility] Calcium [Mass/Vol] 8.7 mg/dL Normal 8.5-10.2 [facility] Chloride [Moles/Vol] 105 mmol/L Normal 97-105 [facility] CO2 [Moles/Vol] 25 mmol/L Normal 22-30 [facility] Creatinine [Mass/Vol] 1.20 mg/dL Normal 0.73-1.22 [facility] eGFR- Amer. >60 Normal [facility] GFR/1.73 sq M predicted among non-blacks MDRD (S/P/Bld) [Vol rate/Area] mL/min/{1.73_m2} Normal [facility] Comment on above: Result Comment: eGFR [...] GFR. Glucose [Mass/Vol] 107 mg/dL High 74-99 [facility] Comment on above: Result Comment: The [place] Diabetes Association (ADA) provides guidance for cutoff [...] Standards of Medical Care in Diabetes 2016, [place] [employer]. Diabetes Care. 2016.39(Suppl 1). Potassium [Moles/Vol] 4.3 mmol/L Normal 3.7-5.1 [facility] Sodium [Moles/Vol] 138 mmol/L Normal 136-144 [facility]spital Urea nitrogen [Mass/Vol] 18 mg/dL Normal 9-24 [facility] CBCon 05-03-2020 Absolute nRBC <0.01 [address] <0.01 [facility] Erythrocyte distribution width (RBC) [Ratio] 14.1 % Normal 11.5-15.0 [facility] Hematocrit (Bld) [Volume fraction] 43.9 % Normal 39.0-51.0 [facility] Hemoglobin (Bld) [Mass/Vol] 14.3 g/dL Normal 13.0-17.0 [facility] MCH (RBC) [Entitic mass] 30.2 pG Normal 26.0-34.0 [facility] MCHC (RBC) [Mass/Vol] 32.6 g/dL Normal 30.5-36.0 [facility] MCV (RBC) [Entitic vol] 92.8 fL Normal 80.0-100.0 [facility] Platelet mean volume (Bld) [Entitic vol] 11.7 fL Normal 9.0-12.7 [facility] Platelets (Bld) [#/Vol] 145 10*3/uL Low 150-400 [facility] RBC (Bld) [#/Vol] 4.73 10*6/uL Normal 4.20-6.00 [facility] WBC (Bld) [#/Vol] 9.79 10*3/uL Normal 3.70-11.00 [facility] CONSULTon 05-03-2020 CONSULT HNO ID: [id number] Author: Henry oCllins Service: Hospital Medicine Author Type: Physician Type: Consults Filed: 05/03/2020 8:50 PM Note Text: DEPARTMENT OF HOSPITAL MEDICINE INITIAL CONSULT SERVICE DATE: 05/03/2020 SERVICE TIME: 7:44 PM Primary Care Physician: Ellen Crabtree DO NIGHT AND WEEKEND COVERAGE: KARELY COVERAGE: Days: [phone], please contact day attending provider ( please page admission pager [phone] to find out day attending provider for [...] Laterality Date - COLONOSCOP W/ OR W/O [facility] SPEC Colonoscopy - EGD W/O OR [...] 03, 2020 TIME: 7:44 PM PAGER/CONTACT #: [facility] NURSING PROGon 05-03-2020 NURSING PROG HNO ID: [id number] Author: Renae JerryRn) ALFONSO Greco Service: ? Author Type: Registered Nurse Type: Nursing Progress Note Filed: 05/03/2020 7:58 PM Note Text: Nursing Progress Note Patient Name: Alisia Correa [facility] Daily Note: Received pt from PACU in stable condition at 1745. Bilateral ppp, toes warm and mobile, denies numbness or tingling, Abductor pillow in place. Vitals stable. Will monitor. This note was completed by: Renae Greco RN [facility] OPERATIVE NOon 05-03-2020 OPERATIVE NO HNO ID: [id number] Author: Steven Guevara Jr. Service: Orthopaedic Surgery Author Type: Physician Type: Operative Report Filed: 05/03/2020 3:08 PM Note Text: [facility] OPERATIVE REPORT PATIENT NAME: Alisia Correa AGE: [age] year old LOG ID: [id number] Surgery Date: 05/03/2020 SURGEON: Steven Guevara M.D. QUALITY CONTROL HEAD: Vj Jorge PA-C, his assistance consisted of [...] banked allogenic blood if medically necessary. IMPLANTS: [employer] Total Hip System SIZE TYPE Acetabulum [...] dislocated. Proximal femoral osteotomy was performed. The dry box tender osteotome was utilized to lateralize the starting [...] DATE: May 03, 2020 TIME: 2:57 PM [facility] PROGRESS HNO ID: [id number] Author: Tracey Khan (Rt) Service: Radiology Author Type: Carpet Jack Type: Progress Notes Filed: 05/03/2020 4:01 PM [...] RT Kathy May 03, 2020 4:01 PM [facility] PROGRESS HNO ID: [id number] Author: Steven Guevara Jr. Service: Orthopaedic Surgery Author Type: Physician Type: Progress Notes Filed: 05/03/2020 8:02 AM Note Text: The patient was offered a surgery/procedure at a [facility] facility. The surgeon/proceduralist and patient have discussed [...] surgery/procedure as indicated on the consent form. Normal [facility] PT EDon 05-03-2020 PT ED HNO ID: [id number] Author: Kaylee JerryRn) ALFONSO Sunshine Service: ? [...] LEARNING: None PHYSICAL LIMITATIONS AFFECTING LEARNING: None Normal [facility] SURGICAL PATHOLOGYon 020 SURGICAL PATHOLOGY Specimen originated from [facility] Specimen #: [id number] Submitting Physician: STEVEN GUEVARA JR, MD FINAL [...] reamings. The additional tissue appears grossly unremarkable. Government Program Manager sections are submitted in formalin as follows: A1 soft tissue, A2 bone after a period of decalcification. ARH/adb 05/04/2020 Gross examination performed at [facility], [address] [place] [address] Date of Report: 05/09/2020 Date of Procedure: 05/03/2020 Date of Receipt: 05/03/2020 Submitted by: STEVEN GUEVARA JR, MD Location: [facility] Diagnostic interpretation performed at [facility], [address] [place] [address]. [place] Number: [id number] Normal [facility] Comment on above: Performed [...] IMPRESSION: Status post hip arthroplasty, normal alignment Interactive Designer: ARPIT Transcribe Date/Time: May 03 2020 4:05P Dictated by : JUAN LUIS RUSSELL MD This examination was interpreted and the report reviewed and electronically signed by: JUAN LUIS RUSSELL MD on May 03 2020 4:07PM EST [id number] [facility]AV[facility] ----- ALISIA CORREA ([id number]) 1960 M Date Time Provider Department 05/02/20 [...] Hives Date Reviewed: 04/24/2020 Reviewed by: Britney [facility]Boston [facility] Center[facility]ajan Nweman - Fully Assessed Reason for Visit: Covid [...] More... Hyperlipidemia [E78.5] 12/07/2017 More... Ulcerative lesion [QLJ5293] 12/07/2017 07/21/2019 Shoulder arthritis [M19.019] 12/29/2017 Status [...] gammopathy of unknown signific*09/15/2018 PD (Parkinson's disease) ([facility]) [G20] 04/13/2019 More... 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 Unspecified sleep apnea [G47.30] More... Acute cystitis without hematuria [N30.00] 04/27/2020 More... Encounter Status:Closed by VJ JORGE on 05/02/20 [facility] NURSING PROGon 04-25-2020 NURSING PROG HNO ID: [id number] Author: Niyah Hinkle (Rn) ALFONSO Golden Service: [...] COMPLETE COVID scheduled 05/01/2020 @ 10:30 Niyah Golden, ALFONSO April 30, 2020 2:36 PM [facility] Type and SCR (30D)on 020 ABO/RH(D) Negative [facility] HOSPon 04-12-2020 HOSP Patient:Eddi Correa MRN: [...] disc without myelopathy [M51.24] SPRAIN OF NECK (330/4) [S13.9XXA] Displacement of cervical intervertebral disc without [...] of unknown significance) [D47.2] PD (Parkinson's disease) ([facility]) [G20] Dysphagia [R13.10] Psychosis due to Parkinson's [...] is scheduled for post-op Physical Therapy at [facility] ([phone])on 05/07/20 @ 2:45. They want patient to arrive 10 to 15 min early. Fax PT order to [phone]. Normal [facility] Basic Metabolic Panlon 11-09 Anion gap [Moles/Vol] 8 mmol/L Low 9-18 [facility] Calcium [Mass/Vol] 8.6 mg/dL Normal 8.5-10.2 [facility] Chloride [Moles/Vol] 101 mmol/L Normal 97-105 [facility] CO2 [Moles/Vol] 30 mmol/L Normal 22-30 [facility] Creatinine [Mass/Vol] 1.02 mg/dL Normal 0.73-1.22 [facility] eGFR- Amer. >60 Normal [facility] GFR/1.73 sq M predicted among non-blacks MDRD (S/P/Bld) [Vol rate/Area] mL/min/{1.73_m2} Normal [facility] Comment on above: Result Comment: eGFR [...] GFR. Glucose [Mass/Vol] 110 mg/dL High 74-99 [facility] Comment on above: Result Comment: The [place] Diabetes Association (ADA) provides guidance for cutoff [...] Standards of Medical Care in Diabetes 2016, [place] [employer]. Diabetes Care. 2016.39(Suppl 1). Potassium [Moles/Vol] 4.1 mmol/L Normal 3.7-5.1 [facility] Sodium [Moles/Vol] 139 mmol/L Normal 136-144 [facility] Urea nitrogen [Mass/Vol] 18 mg/dL Normal 9-24 [facility] CBCon 11-09-2019 Absolute nRBC <0.01 [address] <0.01 [facility] E[facility]th[facility] distribution width (RBC) [Ratio] 13.7 % Normal 11.5-15.0 [facility] Hematocrit (Bld) [Volume fraction] 39.6 % Normal 39.0-51.0 [facility] Hemoglobin (Bld) [Mass/Vol] 12.5 g/dL Low 13.0-17.0 [facility] MCH (RBC) [Entitic mass] 30.2 pG Normal 26.0-34.0 [facility] MCHC (RBC) [Mass/Vol] 31.6 g/dL Normal 30.5-36.0 [facility] MCV (RBC) [Entitic vol] 95.7 fL Normal 80.0-100.0 [facility] Platelet mean volume (Bld) [Entitic vol] 11.8 fL Normal 9.0-12.7 [facility] Platelets (Bld) [#/Vol] 129 10*3/uL Low 150-400 [facility] RBC (Bld) [#/Vol] 4.14 10*6/uL Low 4.20-6.00 [facility] WBC (Bld) [#/Vol] 6.62 10*3/uL Normal 3.70-11.00 [facility] CONSULT PROGon 11-09-2019 CONSULT PROG HNO ID: [id number] Author: Lenora Alarcon Service: Hospital Medicine Author [...] Associate Staff, Department of Hospital Medicine Clinical Certified Addiction Counselorhairspring studder [facility], [facility] Pager [phone] / [phone] Normal [facility] NURSING PROGon 11-09-2019 NURSING PROG HNO ID: [id number] Author: Renae (Rn) ALFONSO Greco Service: ? [...] note was completed by: Renae Greco RN [facility] PLAN OF CAREon 11-09-2019 PLAN OF CARE HNO ID: [id number] Author: Rita Arias (Liner Worker) Service: ? Author Type: Carpet Jack Type: Plan of Care Filed: 11/09/2019 10:31 AM Note Text: APPLICATION SECURITY DEVELOPER BEDSIDE DELIVERY SURVEY 1. Patient to use [facility] Bedside Delivery - NO prefer own pharmacy Insurance Information as follows: 2. Insurance card on file - N/A 3. Credit card for payment - N/A [facility] PROGRESSon 11-09-2019 PROGRESS HNO ID: [id number] Author: Demetris Naik Service: ? Author Type: Physician Streetcar Repairer Type: Progress Notes Filed: 11/09/2019 7:49 AM [...] discharge planning-plan for DC home today with [facility] if independent with physical therapy [...] Gammopathy of Unknown Significance) Pd (Parkinson's Disease) ([facility]) Dysphagia Psychosis Due to Parkinson's Disease ([facility]) Osteoarthritis of Left Hip Open Wound of [...] 0747 -- 11/08/19 1315 pneumatic compression stockings (sd,ri) 11/08/19 1315 graduated compression stockings (sd,ri) 11/08/19 1315 graduated compression stockings ([place], [place]) 11/08/19 1315 activity - mobilize patient (sd,ri) 11/08/19 1315 activity - mobilize patient (sd,ri) 11/08/19 1315 activity - mobilize patient (sd,ri) VTE Prophylaxis: VTE prophylaxis appropriate POST OPERATIVE COMPLICATIONS: Complicated by: uneventful/none SIGNATURE: Demetris Naik PA-C PATIENT NAME: Alisia Correa DATE: November 09, 2019 TIME: 7:48 AM PAGER/CONTACT #: [phone] [facility] PT EDon 11-09-2019 PT ED HNO ID: [id number] Author: Shelley Givens (Pharmacist) Service: Pharmacy Author [...] These medications were sent to e- [facility]-[place] [address] [facility] - [phone] [address] [facility], [facility] [address] ? aspirin, enteric coated 81 mg EC tablet ? oxyCODONE IR 5 mg immediate release tablet You can get these medications from any pharmacy You don't need a prescription for these medications ? acetaminophen 325 mg tablet Normal [facility] PT ED HNO ID: [id number] Author: Shelley Givens (Pharmacist) Service: Pharmacy Author [...] Indicates understanding of topic SHELLEY GIVENS, PHARMACIST Normal [facility] THERAPY on 11-09-2019 THERAPY NT HNO ID: [id number] Author: Oumou Witt (Pt) Fabio Service: Physical Therapy Author Type: Physical Therapist Type: Therapy (PT/OT/Speech/Resp) Filed: 11/09/2019 2:56 PM Note Text: Physical Therapy Treatment SERVICE DATE: 11/09/2019 SERVICE TIME: 1105 to 1150 ROOM: [place] [address] Recommended Discharge Disposition: Outpatient Physical Therapy Anticipated [...] Diagnosis: Reduced mobility-other Interventions Provided: Gait Training (75829);Therapeutic Exercise (61128) Therapeutic Exercise (05267) Treatment Minutes: 15 1 unit Skilled Intervention(s): [...] 3x/day, 2 sets for 10 Gait Training (95916) Treatment Minutes: 30 2 units Skilled Intervention(s): [...] DATE: November 09, 2019 TIME: 2:52 PM [facility] THERAPY NT HNO ID: [id number] Author: Katharina Moser Service: Occupational Therapy Author Type: Occupational Therapist Type: Therapy (PT/OT/Speech/Resp) Filed: 11/09/2019 2:29 PM Note Text: Occupational Therapy Evaluation SERVICE DATE: 11/09/2019 SERVICE TIME: 849 ROOM: [place] [address] Recommended Discharge Disposition: Home Anticipated Discharge Needs: [...] living (ADL);Muscle Weakness (generalized) Interventions Provided: Evaluation;Self Skilled Nursing Management (45229) $ Evaluation-Low (90555) Billed Units: 1 unit Self Skilled Nursing Management (81003) Treatment Minutes: 38 3 units Skilled Intervention(s): [...] body dressing. Instructions and demonstration with a game artist, sock aide, dressing stick and long handled [...] Type: WIS with shower chair, grab bars, [facility] Laundry: 1ST FLOOR Equipment Owned: Cane;Hand Held [...] DATE: November 09, 2019 TIME: 12:33 PM [facility] ANES Brian 11-08-2019 ANES POST HNO ID: [id number] Author: Ashley Guerrier Service: Anesthesiology Author Type: [...] 08, 2019 TIME: 1:16 PM PAGER/CONTACT #: [facility] ANES PREOPon 11-08-2019 ANES PREOP HNO ID: [id number] Author: Ashley Guerrier Service: Anesthesiology Author Type: [...] Laterality Date - COLONOSCOP W/ OR W/O [facility] SPEC Colonoscopy - EGD W/O OR [...] mL/hr at 11/08/19 0846 30 mL/hr at 11/08/1948 - ceFAZolin iv piggyback 2 g in [...] November 08, 2019 TIME: 8:55 AM CSN: [id number] Normal [facility] Basic Metabolic Panlon 11-08 Anion gap [Moles/Vol] 11 mmol/L Normal 9-18 [facility] Calcium [Mass/Vol] 8.9 mg/dL Normal 8.5-10.2 [facility] Chloride [Moles/Vol] 106 mmol/L High 97-105 [facility] CO2 [Moles/Vol] 25 mmol/L Normal 22-30 [facility] Creatinine [Mass/Vol] 0.95 mg/dL Normal 0.73-1.22 [facility] eGFR- Amer. >60 Normal [facility] GFR/1.73 sq M predicted among non-blacks MDRD (S/P/Bld) [Vol rate/Area] mL/min/{1.73_m2} Normal [facility] Comment on above: Result Comment: eGFR [...] GFR. Glucose [Mass/Vol] 125 mg/dL High 74-99 [facility] Comment on above: Result Comment: The [place] Diabetes Association (ADA) provides guidance for cutoff [...] Standards of Medical Care in Diabetes 2016, [place] Diabetes Association. Diabetes Care. 2016.39(Suppl 1). Potassium [Moles/Vol] 4.3 mmol/L Normal 3.7-5.1 [facility] Sodium [Moles/Vol] 142 mmol/L Normal 136-144 [facility] Urea nitrogen [Mass/Vol] 23 mg/dL Normal 9-24 [facility] CASE MGT INIT [facility] 2019 CASE MGT INIT [facility] ID: [id number] Author: Ashley (Rn) ALFONSO Sands Service: Care Management Author Type: Registered Nurse Type: Care Mgt Initial Assessment Filed: 11/08/2019 3:02 PM Note Text: CARE MANAGEMENT: ASSESSMENT AND DISCHARGE PLAN SERVICE DATE: November 08, 2019 SERVICE TIME: 3:01 PM PRIMARY CARE PHYSICIAN: Ellen Crabtree DO ADMISSION STATUS: Extended Recovery Needs Prior to Discharge: OT/PT Evaluation MEDICAL: Patient/Government Program Manager Stated Goals: To have reduction in pain;To have reduction in symptoms;To improve my functional status;To return home to life as it was Health Insurance: None Health Issues Impacting Discharge Plan: Newly diagnosed Newly Diagnosed: Hip Replacement Last Discharge Date: 03/17/18 Is this Within the Past 30 days? Last discharge within 30 days: No Advance Directive: Current Advance Directive: Health Care Power of Cable Splicing Technician;Living Will In Chart: No Online Trader Attempted to Assist with AD Completion: Yes [...] Information Primary Emergency Contact: Dipti Correa Address: [address] [place] [address] OF [facility] Mobile Relation: Spouse Contact Resources: Family [...] Completely I feel financially burdened by my abp-op-kdicbz expenses for my prescription medication:: 0 - Agree Somewhat Risk Score: 0 Patient is categorized as: Low risk < 2 Are you interested in bedside delivery of your medications? Yes Is Patient Psychosocially Complex?: No ASSESSMENT AND PLAN: Medical Needs: Medical Needs: None Psychosocial Needs: Psychosocial Needs: None FREEDOM OF CHOICE EXPLAINED: [place] of Choice Given: No Reason Not Given: No placements necessary POTENTIAL TRANSITION PLANS Outpatient Therapy Patient has equipment. Patient is scheduled for outpatient therapy on 11/11 at [place]. SIGNATURE: Ashley Sands RN PATIENT NAME: Alisia Correa DATE: November 08, 2019 TIME: 3:01 PM PAGER/CONTACT #: [phone] Normal [facility] CBCon 11-08-2019 Absolute nRBC <0.01 Normal <0.01 [facility] Erythrocyte distribution width (RBC) [Ratio] 13.9 % Normal 11.5-15.0 [facility] Hematocrit (Bld) [Volume fraction] 44.3 % Normal 39.0-51.0 [facility] Hemoglobin (Bld) [Mass/Vol] 14.2 g/dL Normal 13.0-17.0 [facility] MCH (RBC) [Entitic mass] 30.4 pG Normal 26.0-34.0 [facility] MCHC (RBC) [Mass/Vol] 32.1 g/dL Normal 30.5-36.0 [facility] MCV (RBC) [Entitic vol] 94.9 fL Normal 80.0-100.0 [facility] Platelet mean volume (Bld) [Entitic vol] 11.7 fL Normal 9.0-12.7 [facility] l Platelets (Bld) [#/Vol] 159 10*3/uL Normal 150-400 [facility] RBC (Bld) [#/Vol] 4.67 10*6/uL Normal 4.20-6.00 [facility] WBC (Bld) [#/Vol] 10.50 10*3/uL Normal 3.70-11.00 [facility] CONSULTon 11-08-2019 CONSULT HNO ID: [id number] Author: Bhupendra Chacon Service: Podiatry Author Type: [...] POA: Yes 3. COPD with chronic bronchitis (HCC) POA: Yes 4. Hyperlipidemia POA: Yes 5. PD (Parkinson's disease) ([facility]) POA: Yes 6. Nicotine use disorder, F17.2 [...] Laterality Date - COLONOSCOP W/ OR W/O [facility] SPEC Colonoscopy - EGD W/O OR W/BRUSH/WASH [...] intact Lower extremity tested with 10 gram Aberdeen-Nichole monofilament No evidence of diabetic peripheral sensory [...] appropriate shoes All questions were answered. Alisia Cox Sunny appeared to be well informed. Bhupendra Chacon DPM [facility] CONSULT HNO ID: [id number] Author: SHRAVAN Christian Service: Hospital Medicine Author Type: Physician Streetcar Repairer Type: Consults Filed: 11/08/2019 2:36 PM Note Text: DEPARTMENT OF HOSPITAL MEDICINE INITIAL CONSULT SERVICE DATE: 11/08/2019 SERVICE TIME: 1:14 PM Primary Care Physician: Ellen Crabtree, NIGHT AND WEEKEND COVERAGE: Days: [phone], please page me for patient issues. Nights: [phone], please page [facility] Hospitalist Night coverage pager [phone] REASON FOR CONSULT: Medical Management REQUESTING PHYSICIAN: [...] with ambulation. 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 RESP: [...] - Hypoglycemia protocol COPD with chronic bronchitis (HCC) POA: Yes Assessment AND Plan: - Chronic, stable - Continue home meds Hyperlipidemia POA: Yes Assessment AND Plan: - Continue home meds PD (Parkinson's disease) (HCC) POA: Yes Assessment AND Plan: - Chronic, [...] Device and Early Ambulation Disposition: Home with [facility] Plan of care discussed with: Provider, RN, Patient SIGNATURE: SHRAVAN Christian PATIENT NAME: Alisia Correa DATE: November 08, 2019 TIME: 1:15 PM PAGER/CONTACT #: [phone] [facility] NURSING PROGon 11-08-2019 NURSING PROG HNO ID: [id number] Author: Jessica (Rn) ALFONSO Joe Service: Nursing Author Type: Registered Nurse Type: Nursing Progress Note Filed: 11/08/2019 7:25 PM Note Text: Nursing Progress Note Patient Name: Alisia Correa Patient Location: [place] [address] [address] Daily Note: 1330 Pt admitted to room [...] note was completed by: Jessica Joe RN [facility] OPERATIVE NOon 11-08-2019 OPERATIVE NO HNO ID: [id number] Author: Steven Guevara Jr. Service: Orthopaedic Surgery Author Type: Physician Type: Operative Report Filed: 11/08/2019 2:08 PM Note Text: [facility] OPERATIVE REPORT PATIENT NAME: Alisia Correa AGE: [age] year old LOG ID: [id number] Surgery Date: 11/08/2019 SURGEON: Steven Guevara M.D. QUALITY CONTROL HEAD: Vj Jorge PA-C, his assistance consisted of [...] banked allogenic blood if medically necessary. IMPLANTS: [facility] Total Hip System SIZE TYPE Acetabulum [...] dislocated. Proximal femoral osteotomy was performed. The dry box tender osteotome was utilized to lateralize the starting [...] DATE: November 08, 2019 TIME: 11:07 AM [facility] PLAN OF CAREon 11-08-2019 PLAN OF CARE HNO ID: [id number] Author: Shelley Givens (Pharmacist) Service: Pharmacy Author [...] Itching - Levaquin [Levofloxa* Hives Preferred Pharmacy: [facility] [place] [address] [address] [facility] [phone] Current LEAD RADIATION THERAPIST Medications: Prior to Admission medications as of [...] GIVENS, PHARMACIST November 08, 2019 1:53 PM [facility] PROGRESSon 11-08-2019 PROGRESS HNO ID: [id number] Author: Niesha JerryRtElpidio Kang Service: ? Author Type: Carpet Jack Type: Progress Notes Filed: 11/08/2019 12:05 PM [...] Dina PUENTES November 08, 2019 12:05 PM [facility] PT EDon 11-08-2019 PT ED HNO ID: [id number] Author: Catherine (Rn) ALFONSO Basurto Service: Nursing Author Type: Registered [...] Signed By: Catherine Basurto RN In Department: [facility] SURGERY Normal [facility] SURGICAL PATHOLOGYon 020 SURGICAL PATHOLOGY Specimen originated from [facility] Specimen #: [id number] Submitting Physician: STEVEN GUEVARA JR, MD FINAL [...] Sectioning does not reveal any avascular necrosis. Government Program Manager sections are submitted as follows: A1 soft tissue, A2 bone submitted after decalcification. BF/slb 11/08/2019 Gross examination performed at [facility], [address] [place] [address] Date of Report: 11/14/2019 Date of Procedure: 11/08/2019 Date of Receipt: 11/08/2019 Submitted by: STEVEN GUEVARA JR, MD Location: [facility] Diagnostic interpretation performed at [place] [address]. CLIA Number: [id number] Normal [facility] Comment on above: Performed By: #### S #### See report for performing lab information. THERAPY NTon 11-08-2019 THERAPY NT HNO ID: [id number] Author: Oumou Mccarthy Service: Physical Therapy Author Type: Physical Therapist Type: Therapy (PT/OT/Speech/Resp) Filed: 11/08/2019 2:54 PM Note Text: Physical Therapy Evaluation SERVICE DATE: 11/08/2019 SERVICE TIME: 1325 to 1415(8 min for pharmacist to review meds) ROOM: [place] [address] Recommended Discharge Disposition: Outpatient Physical Therapy Recommended [...] Diagnosis: Reduced mobility-other Interventions Provided: Evaluation;Therapeutic Exercise (18928);Gait Training (14082);Therapeutic Activity (93445) $ Evaluation-Low (60639) Billed Units: 1 unit Therapeutic Exercise (26737) Treatment Minutes: 12 1 unit Skilled Intervention(s): [...] position: LAQ X10 B LE Therapeutic Activity (92522) Treatment Minutes: 3 Skilled Intervention(s): Instructed patient in supine to sit pushing with upper extremities to sit up Gait Training (09354) Treatment Minutes: 12 1 unit Skilled Intervention(s): [...] DATE: November 08, 2019 TIME: 2:49 PM [facility] XR PELVIS 1V APon 11-08-2019 XR [...] IMPRESSION: Left total hip prosthesis in place. Interactive Designer: ARPIT Transcribe Date/Time: Nov 08 2019 12:43P Dictated by : LIGIA EDWARDS MD This examination was interpreted and the report reviewed and electronically signed by: LIGIA EDWARDS MD on Nov 08 2019 12:44PM EST [id number] [facility] NURSING PROGon 10-24-2019 NURSING PROG HNO ID: [id number] Author: Geneva (Rn) ALFONSO Goins Service: Nursing [...] Date 10-18-19 UA: Date 10-18-19 Urine C+S: 10-18-19 treated by provider STAAMP: Date 08-18-19 positive for staph and treated by the surgeon TYPE AND SCREEN: 10-18-19 Imaging Within Last 12 Months: N/A Cardiac Testing: EKG in last 12 Months: Yes: Date: 10-18-19, Comment: epic BMI Percentile (PEDS): N/A Risk Assessment: N/A Anesthesia Review: N/A Narrative: N/A Pre-op Considerations: Diabetic Has spinal cord stimulator Chart Check: COMPLETED Geneva Goins RN October 24, 2019 1:40 PM Normal [facility] Type and SCR (30D)on 019 ABO/RH(D) Negative [facility] CNCOon 01-01-2018 CNCO Letter TextAlisia Correa [address] [place], [place] [address]Promisejuanito Cox [address] [address]Npvr Mr. Correa:The nurses and staff of the 5th floor Orthopedic nursing unit at [facility], a [facility], hope this letter finds you feelingwell [...] free to contact me, Dianna Villarreal at [phone] [email or web address], you will receive a survey in the mail asking you to rate thecare you received while in the hospital. Please take the time to completeand send back the survey, as it is essential to our continued success. Ipersonally review all the results and would appreciate your feedback.Thank you in advance for your participation and thank you for choosing [facility] for your healthcare needs. Sincerely,Dianna Villarreal, MSN, RNNurse [id number] Floor OrthopedicJustin Ville [email or web address] Normal [facility] Basic Metabolic Panlon 12-31 Anion gap 9 mmol/L Normal 0-15 [facility] Calcium 8.3 mg/dL Low 8.5-10.5 [facility] Chloride 104 mmol/L Normal 98-110 [facility] CO2 25 mmol/L Normal 23-32 [facility] Creatinine 0.98 mg/dL Normal 0.7-1.4 [facility] Glucose mass conc 125 mg/dL High 65-100 [facility] Potassium molar conc 3.5 mmol/L Normal 3.5-5.0 [facility] Sodium 138 mmol/L Normal 135-146 [facility] Urea nitrogen 15 mg/dL Normal 8-25 [facility] CASE MANAGEMon 12-31-2017 CASE MANAGEM HNO ID: [id number] thor: Peace (Rn) JAMIE Bynumervice: Case ManagementAuthor [...] 31, 2017 : 10:40 AM PAGER/CONTACT #: [phone] Normal [facility] CBCon 12-31-2017 Erythrocyte distribution width Auto Ratio (RBC) 15.3 % High 11.5-15.0 [facility] Erythrocytes (RBC) 3.45 10*6/uL Low 4.20-6.00 [facility] Hematocrit (HCT) 29.7 % Low 39.0-51.0 [facility] Hemoglobin mass conc (Bld) 9.6 g/dL Low 13.0-17.0 [facility] MCH 27.8 pG Normal 26.0-34.0 [facility] MCHC mass conc (RBC) 32.3 g/dL Normal 30.5-36.0 [facility] MCV 86.1 fL Normal 80.0-100.0 [facility] Platelet mean volume (PMV) 13.3 fL High 9.0-12.7 [facility] Platelets 112 10*3/uL Low 150-400 [facility] Comment on above: Result Comment: Orthopaedic Hospitalp le checked for a clot. WBC (Leukocytes) 6.00 10*3/uL Normal 3.70-11.00 [facility] CNDSon 12-31-2017 CNDS HNO ID: [id number] thor: Candida (Res) [facility] HospitalodService: Orthopaedic SurgeryAuthor Type: ResidentType: Discharge SummariesFiled: 01/01/2018 [...] surgery. [facility] Surgery was scheduledand on 12/29/2017 [...] Value 9.6 (L)12/30/2017 9.7 (L)12/07/2017 13.4Hematocrit (%)Date Value12/31 29.7 (L)12/30/2017 29.6 (L)12/07/2017 43.5Discharge Antibiotics: None [...] in 10-14 days.Future AppointmentsDate Time Provider Department [facility]01/06/2018 11:40 AM Cisco Silver Areilla NRESMN NREST S Bldg01/12/2018 10:00 AM Evangelist (Rn) ALFONSO Gilliland [facility]02/08/2018 2:00 PM [...] BM > 48 hrs.Print RX, Disp-120 mL, S-7txktufwgmz-gnpvyzzdwg (SYMBICORT) 160-4.5 mcg/actuation inhalerInhale 2 Puffs as instructed twice daily.Med Update, R-0DULoxetine (CYMBALTA) 60 mg capsuleTake 1 capsule by mouth once daily.Med Update, R-0sucralfate (CARAFATE) 1 gram tabletTake 1 tablet by mouth four times daily.Med Update, X-1ACAZBWPS-OOW/FA/LYCOPE N/LUTEIN (CENTRUM SILVER ULTRA MEN'S ORAL)Take 1 tablet by mouth once daily.Historical Medamitriptyline 25 mg ORAL tabletTake 50 mg by mouth daily at bedtime.Historical Med, R-0tamsulosin (FLOMAX) 0.4 mg ORAL Ko57Ezxw 2 capsules by mouth daily at bedtime.Mail [...] December 31, 2017 : 6:26 AM PAGER: [phone] [facility] NURSING PROGon 12-31-2017 NURSING PROG HNO ID: [id number] thor: Charlotte Crowe (Rn) JAMIE Mcmillanervice: (none)Author Type: Registered NurseType: Nursing Progress NoteFiled: 12/31/2017 2:04 PMNote Text: Nursing Progress NotePatient Name: Alisia CorreaMRN: [id number] Location[facility]/ MD-* Dai ly Note:0800 awake, alert for am [...] note was completed by: Charlotte Mcmillan RN [facility] PROGRESSon 12-31-2017 PROGRESS HNO ID: [id number] thor: Macrina ([facility]) DionService: General Internal MedicineAuthor Type: Nurse PractitionerType: Progress NotesFiled: 12/31/2017 5:07 PMNote Text:INPATIENT PROGRESS NOTESName: Alisia CorreaMRN: [id number] of Service: December 31, 2017SUBJECTIVE: Seen and examined at bedside.Patient states pain is level 4-5 now. He denies any dizziness/lightheadedness . He denies nausea orvomiting, chest pain, palpitations or shortness of breath.PERTINENT ROS:All others reviewed and negative except as per HPIMEDICATIONS:No current hospital medications on file.PHYSICAL EXAM: 12/30/18216112/31/18091BP: 91/65 119/63 110/62 105/66Pulse: 88 95 75 [...] developed plan of care with Dr. Blair.Macrina Thomason [facility]NPBer[facility] 20175:00 PM [facility] PROGRESS HNO ID: [id number] thor: Bilal (Res) MahmoodService: Orthopaedic SurgeryAuthor Type: ResidentType: Progress NotesFiled: 12/31/2017 6:26 AMNote Text:ORTHOPAEDIC SURGERY PROGRESS NOTEPatient: Alisia CorreaMRN: [id number]: Procedure(s) (LRB):ARTHROPLASTY TOTAL SHOULDER; W/ GLENOID AND [...] m/u/r/ax2+ radialLABS:CBC, Coags, BMP, Mg, PhosRecent Labs 444WBC 6.00 7.10HB 9.6* 9.7*HCT 29.7* 29.6*PLT 112* 128*NA 138 --K 3.5 --CHLOR 104 --CO2 25 --BUN 15 --CREAT 0.98 --GLUC 125* --CA 8.3* --DATA:Diagnostic tests reviewed for today's visit:Most recent labsMost recent imagingBilal MD Bi12/30/2017Orthopaedic Surgery PGY-2Pager: [phone] [facility] THERAPY NTon 12-31-2017 THERAPY NT HNO ID: [id number] thor: Cyn (Ot) PacoerService: Occupational TherapyAuthor Type: Occupational TherapistType: Therapy (PT/OT/Speech/Resp)Filed: 01/04/2018 4:15 PMNote Text:Occupational Therapy TreatmentSERVICE DATE: 12/31/2017SERVICE TIME: 1300 to 1338[address]AY-226-6Vcfbwizpmzb Discharge Disposition: HomeAnticipated Discharge Needs: Physical Assist [...] mobility-other;Decreased activities of dailyliving (ADL)Interventions Provided: Self Skilled Nursing Management (73619);TherapeuticExerci se (52400)Therapeutic Exercise (91288) Treatment Minutes: 101 unitSkilled Intervention(s): Instruction in therapeutic exerciseFacilitation of muscle control, optimal recruitment and alignmentEducation in PROM in supine to L shoulder to 90 degrees. present and follow instruction, with proper techniqueSelf Skilled Nursing Management (48911) Treatment Minutes: 282 unitsSkilled Intervention(s): Instructed in [...] Willson OTR/L PATIENT NAME: Alisia CorreaDATE: December 31, 2017 : 2:25 PM PAGER: [phone] [facility] CASE MANAGEMon 12-30-2017 CASE MANAGEM HNO ID: [id number] thor: Peace (Rn) Fletcher, RNService: Case ManagementAuthor [...] this admission? NoHANDOFF COMMUNICATION:Call to PCP office w. sbar at dcTRANSPORTATION ARRANGEMENTS:Car familyADDITIONAL CONTACT RESOURCES: .Needs Prior to Discharge: Ready for DischargeIM letter given to patient on 12/30/17.Patient to dc home w. HEP. Dc instructions per nursing staff. No furtherneeds at this time. Handoff report completedSIGNATURE: Peace Bynum RN PATIENT NAME: Alisia CorreaDATE: December 30, 2017 : 11:07 AM PAGER/CONTACT #: [phone] [facility] CASE MGT INIT Amira 2017 CASE MGT INIT JR HNO ID: [id number] thor: Peace (Rn) JAMIE Bynumervice: Case ManagementAuthor Type: Registered NurseType: Leni Mgt Initial AssessmentFiled: 12/30/2017 11:07 AMNote Text:CARE MANAGEMENT: ASSESSMENT AND DISCHARGE PLANSERVICE DATE: 12/30/2017SERVICE TIME: 9:50amPRIMARY CARE PHYSICIAN:Ellen Crabtree, CHARIhone: [phone] STATUS: InpatientNeeds Prior to Discharge: Ready for DischargeMEDICAL:Patient/ Government Program Manager Stated Goals:To improve my functional statusHealth Insurance: [facility] [place] ServicesHealth Issues Impacting Discharge Plan: TSALast Admission [...] - StraightHas the Patient Been in a Fpc Facility in the Past 30 days? NoSOCIAL:Living Arrangement: HomeLives With: SpouseFinancial Resources: Employed: .Primary Contact: Extended Emergency Contact InformationPrimary Emergency Contact: Armen Correaddress: [phone] [facility] [place] [id number] Nshvixyj: SpouseSupportive: NoOther Important Patient Contacts: NoneCaregiver Assessment:Caregiver [...] - 0I feel financially burdened by my qne-cx-exocwc expenses for myprescription medication: Agree mostly - [...] fallsPsychosocial Needs: NoneFREEDOM OF CHOICE EXPLAINED:N/APOTENTIAL TRANSITION [id number] yo male admitted for TSA. Patient is alert and oriented x3, followscommands and moves all extremities, reports iNDP LEAD RADIATION THERAPIST. Lives at home w.Spouse who is able to assist as needed. No falls or safety concerns athome. No snf or hhc in the past. PCP is Dr Crabtree whom patient follows [facility]. Therapy recommends home w./ HEP. Anticipate dc home post opday 1 pending medical and therapy clearance. Cm to cont to followSIGNATURE: Peace Bynum RN PATIENT NAME: Alisia CorreaDATE: December 30, 2017 : 11:00 AM PAGER/CONTACT #: [phone] Normal [facility] CBCon 12-30-2017 Erythrocyte distribution width Auto Ratio (RBC) 15.2 % High 11.5-15.0 [facility] Erythrocytes (RBC) 3.44 10*6/uL Low 4.20-6.00 [facility] Hematocrit (HCT) 29.6 % Low 39.0-51.0 [facility] Hemoglobin mass conc (Bld) 9.7 g/dL Low 13.0-17.0 [facility] MCH 28.2 pG Normal 26.0-34.0 [facility] MCHC mass conc (RBC) 32.8 g/dL Normal 30.5-36.0 [facility] MCV 86.0 fL Normal 80.0-100.0 [facility] Platelet mean volume (PMV) 12.6 fL Normal 9.0-12.7 [facility] Platelets 128 10*3/uL Low 150-400 [facility] Comment on above: Result Comment: Samp le checked for a clot. WBC (Leukocytes) 7.10 10*3/uL Normal 3.70-11.00 [facility] CONSULTon 12-30-2017 CONSULT HNO ID: [id number] thor: Reagan Mesaice: General Internal MedicineAuthor Type: PhysicianType: ConsultsFiled: 12/30/2017 9:00 PMNote Text:HISTORY AND PHYSICAL EXAMINATIONPATIENT NAME: Alisia CorreaMRN: [id number] DATE: 12/30/2017SERVICE TIME: 1030PRIMARY CARE PHYSICIAN: NANCY [...] HISTORYProcedure Laterality Date- COLONOSCOP W/ OR W/O [facility] SPEC Colonoscopy- EGD W/O OR W/BRUSH/WASH [...] [facility]- TOTAL KNEE REPLACEMENT Left 2013 with revision 04/27/2017- VASECTOMYFAMILY HISTORY:FAMILY HISTORYProblem Relation [...] meals and at bedtime. Disp: Rfl: 12/28/2017 [id number] (VIAGRA) 100 mg tablet Take 100 mg [...] as needed for Anxiety.Disp: Rfl: 12/28/2017 at 1929Au Betamethasone Dipropionate (DIPROLENE) 0.05 % ointment APPLY [...] focal deficits.DATA:CBC, Coags, BMP, Mg, PhosRecent Labs [id number] 7.10HB 9.7*HCT 29.6*PLT 128*ASSESSMENT AND PLAN:Postoperative anemia [...] in the care of your patient.Macrina Thomason, [facility] 201711:58 AMmeds reordered. Check bs. Pain is okI have seen the patient and verified the exam. I have personally reviewedall labs and imaging results. I have discussed with the INTERNAL COMMUNICATIONS INTERN and I haveparticipated in sifuentes components.I agree with the note as documented with additional comments if needed.The assessment and plan as outlined are reflection of our discussion.Reagan Blair MD [facility] NURSING PROGon 12-30-2017 NURSING PROG HNO ID: [id number] thor: Sotero JerryRn) Allison Chavarria: (none)Author Type: Registered NurseType: Nursing Progress NoteFiled: 12/30/2017 10:14 PMNote Text: Nursing Progress NotePatient Name: Alisia CorreaMRN: [id number] Location: / MD-* Dai ly Note: Patient is resting in [...] note was completed by: SOTERO CHAVARRIA RN [facility] NURSING [facility] HNO ID: [id number] thor: Cece JerryRn) Allison Vera: (none)Author Type: Registered NurseType: Nursing Progress NoteFiled: 12/30/2017 4:53 PMNote Text: Nursing Progress NotePatient Name: Alisia CorreaMRN: [id number] Location: / MD-* Dai ly Note: pt c/o pain to left underarm, med with percocet 2 tabs po, rtshoulder dsg intact with fresh ice pack applied, on q ball intact/ patent,lef shoulder immobilizer on, jacqueline sequentials on bilat, vs stable, ptstates cannot go home today. Pt states that his works to 6 pm and helive 2 hours away from [id number] pt resting in bed with no change in status, no needs at this timeThis note was completed by: Cece Vera RN [facility] PROGRESSon 12-30-2017 PROGRESS HNO ID: [id number] thor: Candida (Res) MahmoodService: Orthopaedic SurgeryAuthor Type: ResidentType: Progress NotesFiled: 12/30/2017 6:27 AMNote Text:ORTHOPAEDIC SURGERY PROGRESS NOTEDATE: 12/30/2017TIME: 5:54 AMPatient: Alisia CorreaMRN: [id number]: Procedure(s) (LRB):ARTHROPLASTY TOTAL SHOULDER; W/ GLENOID AND [...] Body mass index is 33.49 kg/(m2). 156 300 12/30/18041BP: 101/68 99/58 95/56Pulse: 74 77 71Resp: 18 18Temp: 36.8 ?C (98.3 ?F) 36.9 [...] today's visit:Most recent labsMost recent imagingBilal MD iB12/30/2017Orthopaedic Surgery PGY-2Pager: [phone] Normal [facility] THERAPY NTon 12-30-2017 THERAPY NT HNO ID: [id number] thor: Cyn (Ot) RockopherService: Occupational TherapyAuthor Type: Occupational TherapistType: Therapy (PT/OT/Speech/Resp)Filed: 12/30/2017 4:30 PMNote Text:Occupational Therapy TreatmentSERVICE DATE: 12/30/2017SERVICE TIME: 1600 to 1610ROOM: [facility] [id number] Discharge Disposition: HomeAnticipated Discharge Needs: Physical Assist [...] activities of dailyliving (ADL)Interventions Provided: Therapeutic Exercise (13952)Therapeutic Exercise (76153) Treatment Minutes: 101 unitSkilled Intervention(s): Facilitation of [...] evaluation/treatment.SIGN ATURE: INDU Ray/L [facility]: [facility] 2017 : 4:29 PM PAGER: [phone] [facility] THERAPY NT HNO ID: [id number] thor: Cyn Velazquezervice: Occupational TherapyAuthor Type: Occupational TherapistType: Therapy (PT/OT/Speech/Resp)Filed: 12/30/2017 2:42 PMNote Text:Occupational Therapy EvaluationSERVICE DATE: 12/30/2017SERVICE TIME: 1055 to 1125ROOM: [facility] [id number] Discharge Disposition: HomeAnticipated Discharge Needs: Physical Assist [...] activities of dailyliving (ADL)Interventions Provided: Evaluation;Therapeutic Exercise (82993);Self CareHome Management (67195)$ Evaluation-Moderate (16657) Billed Units: 1 unitTherapeutic Exercise (58486) Treatment Minutes: 101 unitSkilled Intervention(s): Instruction in therapeutic exercise PROM Lshoulder to 90 degrees in supineEducation in AROM distal to shoulder after brace comes off at home mid elf Skilled Nursing Management (37587) Treatment Minutes: 131 unitSkilled Intervention(s): Instructed in [...] ATURE: INDU Ray/Kenny PAT[facility]: [facility], 2017 : 2:34 PM PAGER: [phone] [facility] THERAPY NT HNO ID: [id number] thor: Pj (Pt) SulenService: Physical TherapyAuthor Type: Physical TherapistType: Therapy (PT/OT/Speech/Resp)Filed: 12/30/2017 1:25 PMNote Text:Physical Therapy EvaluationSERVICE DATE: 12/30/2017SERVICE TIME: 1140 to 1205ROOM: [address]IZ-[id number] Discharge Disposition: Outpatient Physical Therapy (whenappropriate)Anticipa jacqueline Discharge Needs: Physical Assist at HomePhysical Assist at Home for: Cleaning;Laundry;SelfCare ;Shopping;TransportationR ecommended Discharge Equipment: No equipment needs anticipatedPT Recommendations to Nursing: Ambulate with device;To bathroom;OOB forMeals;Sit at edge of bed;With assist of 1 personDevice: Ashish 6 Clicks Score: 24Precautions/Activity Restrictions: Weight Bearing [...] Diagnosis: Reduced mobility-otherInterventio ns Provided: Evaluation;Gait Training (66404)$ Evaluation-Low (18886) Billed Units: 1 unitGait Training (75178) Treatment Minutes: 232 unitsSkilled Intervention(s): Pt ambulated [...] 30, 2017 : 1:10 PM PAGER/CONTACT #: [phone] [facility] ANES Brian 12-29-2017 ANES POST HNO ID: [id number] thor: Ilsa NgService: AnesthesiologyAuthor Type: AnesthesiologistType: Anesthesia PostOpFiled: 12/29/2017 6:14 PMNote Text:POST ANESTHESIA EVALUATION NOTESERVICE DATE: 12/29/2017SERVICE TIME: 6:14 PMDOB: 1960Vitals: 12/29/1816Temp: 36.1 ?C (97 ?F) 36 ?C (96.8 ?F) 12/29/1816BP: 109/68 104/58 114/57 115/64 12/29/1816Pulse: (!) 59 (!) 58 61 60 12/29/1816Resp: 18 18 16 16 12/29/1816762300 03/13/231995FmW0: 97% 97% 97% 97%Validated Vital Signs: YesPOST ANES STATUS: No apparent anesthetic complications. The patient isappropriately hydrated with stable respiratory and cardiovascular status.Patient has safe and adequate airway control. The patient has appropriatepain relief and no significant post operative nausea or vomiting. Thepatient has achieved baseline mental status.Further assessment by Anesthesia Service: NoneOther Remarks:SIGNATURE: Ilsa gN MD PATIENT NAME: Alisia CorreaDATE: December 29, 2017 : 6:14 PM PAGER/CONTACT #: [facility] ANES PREOPon 12-29-2017 ANES PREOP HNO ID: [id number] thor: Ilsa NgService: AnesthesiologyAuthor Type: AnesthesiologistType: Anesthesia PreOpFiled: 12/29/2017 6:14 PMNote Text:REGIONAL ANESTHESIOLOGY DAY OF SURGERY NOTEPATIENT NAME: Alisia CorreaMRN: [id number] :ALLERGIESAllergen Reactions- Avelox [Moxifloxaci* Rash, Hives, Itching, [...] Without Complication, Without Long-Term CurrentUse of Insulin ([facility])Chronic Pain SyndromeCopd With Chronic Bronchitis ([facility])Arthritis of KneePrimary Osteoarthritis of Right KneeOa (Osteoarthritis) [...] HISTORYProcedure Laterality Date- COLONOSCOP W/ OR W/O [facility] SPEC Colonoscopy- EGD W/O OR W/BRUSH/WASH [...] 08/06/2010 Performed by GEORGINA SEAMAN at [facility]- TOTAL KNEE REPLACEMENT Left 2012 with revision [...] capsules by mouth daily atbedtime. 12/28/2017 at 1930 YesAlbuterol Sulfate 1.25 mg/3 mL INHALATION nebulizer solution VIA NEBULIZER PRN 3 days ago Yesacarbose(PRECOSE 25 MG TAB) Take one(1) tablet three(3) times daily.12/28/2017 at 1930 Yespotassium citrate (UROCIT-K 10) 10 mEq ORAL TbSR Take one(1) tablet threetimes daily. 12/28/2017 at 1930 Yesurea (CARMOL) 40 % lotn Apply to [...] Umanzor, MDDATE: December 29, 2017TIME: 12:45 PM [facility] BRIEF OP NOTon 12-29-2017 BRIEF OP NOT HNO ID: [id number] thor: Candida (Moni) LulúmoodService: Orthopaedic SurgeryAuthor Type: ResidentType: Brief Op NoteFiled: 12/29/2017 5:35 PMNote Text:SHOULDERBRIEF OPERATIVE / PROCEDURE NOTELOG ID: [id number]/Procedure Date: 12/29/2017Incision/Procedu re Start Time: 3:04 PMIncision Close/Procedure End Time: 5:22 PMSurgeon(s)/Proceduralis t(s) and Streetcar Repairer(s):Surgeon(s) and Role: * Sergey Perez - Primary * Watson () Jose - Fellow * Candida (Moni) iB - Resident - AssistingPhysician Streetcar Repairer: Chato Arrieta (Pa) IIProcedure(s):Procedure( s) (LRB):ARTHROPLASTY TOTAL [...] clinic, with Kenny Pat MD12/29/2017Orthopaedic Surgery PGY-2Pager: [phone]: Candida Pat MD PATIENT NAME: Alisia CorreaDATE: December 29, 2017 : 5:33 PM PAGER/CONTACT #: [phone] [facility] NURSING PROGon 12-29-2017 NURSING PROG HNO ID: [id number] thor: Ny (Rn) JAMIE Hernandezervice: NursingAuthor Type: Registered NurseType: Nursing Progress NoteFiled: 12/30/2017 6:13 AMNote Text: Nursing Progress NotePatient Name: Alisia CorreaMRN: [id number] Location: [place] [address]/[address]-* Dai ly Note: Assumed care, pt sitting [...] this time.This note was completed by: NY HERNADNEZ RN [facility] NURSING PROG HNO ID: [id number] thor: Cece (Rn) Jody, RNService: (none)Author Type: Registered NurseType: Nursing Progress NoteFiled: 12/30/2017 10:50 AMNote Text: Nursing Progress NotePatient Name: Alisia CorreaMRN: [id number] Location: [address]-* Dai ly Note: pt arrived from PACU via bed, A+OX3, oriented pt to room andcall light, left shoulder dsg with immobilizer and ice pack dry andintact, pillow placed behind left elbow, on q ball intact/ clamped, ptdenies pain at this time, vs stable, [place] at bedside ordering dietfor [id number] Reviewed daily medication list with pt, compared med list with MARand ordered appropriate medications that were missing from pt's MARThis note was completed by: Cece Vera RN [facility] OPERATIVE NOon 12-29-2017 OPERATIVE NO HNO ID: [id number] thor: Sergey Cerna: Orthopaedic SurgeryAuthor Type: PhysicianType: Operative ReportFiled: 12/29/2017 5:49 PMNote Text:[place] [id number] [place]OPERATIVE REPORTNAME: Alisia Correa [facility] #: [id number]: 12/29/2017 (3:04pm-5:22pm) AGE: 57SURGEON 1: Sergey Perez M.D.QUALITY CONTROL HEAD: 1. Candida Pat M.D. 2. Watson Garcia [...] 48 mm, +7 mm STEPTECH anchor pegglenoid ([employer] STEPTECH APG) was then impacted into the [...] humeral implant was, therefore, a 12 stem, [id number]-xdpxuh neck, with a 52 x 18 mm [...] single rotator interval stitch wasthen passed in ypdjbm-mw-yftgc fashion with a #2 Ticron suture and tieddown to close the lateral rotator interval and set the osteotomy piecesuperiorly. The two #2 Fiberwire sutures coming out of the bicipitalgroove were then sequentially passed in a afhill-wd-swesh fashion medialto the horizontal mattress and sequential [...] the wound was sterilely dressed with Adaptic, [id number], ABD dressing, and Foam tape. The shoulder [...] noneSPECIMENS: noneCOMPLICATIONS: none apparentEric Wicho Perez M.D. [facility] PT EDon 12-29-2017 PT ED HNO ID: [id number] thor: Crystal (Rn) Mario, RNService: NursingAuthor Type: Registered NurseType: Patient EducationFiled: 12/29/2017 12:00 PMNote Text:PRE OP LEARNING ASSESSMENTPROCEDURE/SURGE RY: SURGERY:READINESS TO LEARNCOGNITIVE ABILITY: Alert and orientedMOTIVATION TO LEARN: EagerInterestedFAMILY SUPPORT: High - Very involved in pt carePATIENT LEARNS BEST BY: Multiple MethodsFACTORS AFFECTING LEARNING: NonePHYSICAL LIMITATIONS AFFECTING LEARNING: NoneElectronically Signed By: Crystal Martin RN In Department: [facility] SURGERY / TO COME IN [facility] XR SHOULDER SPECIFY 1V LTon 12-29-2017 XR [...] LOYD MD on Dec 29 2017 5:49PM [id number] Normal [facility] NURSING PROGon 12-08-2017 NURSING PROG HNO ID: [id number] thor: Amaya (Rn) Paula, RNService: (none)Author Type: [...] HPI: DM-oral medication; Current smoker; S/P gastric [id number] Considerations:N/AChart Check:[facility] 2017 9:11 AM Normal [facility] Type and SCR (30D)on 018 ABO/RH(D) Negative Normal [facility] Antibody Screen Negative Normal [facility] HOSPon 11-13-2017 HOSP Patient:Eddi Correa [...] mg ORAL tablettamsulosin (FLOMAX) 0.4 mg ORAL [id number] Sulfate 1.25 mg/3 mL INHALATION nebulizer solutionacarbose(PRECOSE [...] myelopathy [M51.24]Carpal tunnel syndrome [G56.00]SPRAIN OF NECK (01/15/) [S13.9XXA]Displacement of cervical intervertebral disc without myelopathy [...] mellitus (HCC) [E11.9]Essential hypertension [I10]Hyperlipidemia [E78.5]Ulcerative lesion [UHC2863]Allergies:Avelox [Moxifloxacin Hcl]Celebrex [Celecoxib]Erythromycin BaseKlonopin [Clonazepam]Levaquin [Levofloxacin]Date Verified: 12/29/17Lab ValuesLab Value Units Date High LowPOTA* 4.6 mmol/L 12/07/2017 5.1 3.7HEMA* 43.5 % 12/07/2017 51.0 39.0No progress notes entered within the past 30 days [facility] Basic Metabolic Panlon 07-02 Anion gap 11 mmol/L Normal 10-20 [facility] Comment on above: Performed By: #### C MP, IRON, CBCDIF ####[place] [phone]#### FERR, HBA1C ####[place] [phone] Calcium 8.0 mg/dL Low 8.5-10.5 [facility] Comment on above: Performed By: #### C MP, IRON, CBCDIF ####[place] [phone]#### FERR, HBA1C ####[place] [phone] Chloride 105 mmol/L Normal 98-110 [facility] Comment on above: Performed By: #### C MP, IRON, CBCDIF ####[address] #### FERR, HBA1C ####[place] [phone] CO2 23 mmol/L Normal 23-32 [facility] Comment on above: Performed By: #### C MP, IRON, CBCDIF ####[place] [phone]#### FERR, HBA1C ####[address] Creatinine 1.00 mg/dL Normal 0.70-1.40 [facility] Comment on above: Performed By: #### C MP, IRON, CBCDIF ####[address] #### FERR, HBA1C ####[place] [phone] eGFR (non-black) mL/min/{1.73_m2} Normal >60 [facility] Comment on above: Performed By: #### C MP, IRON, CBCDIF ####[place] [phone]#### FERR, HBA1C ####[place] [phone] Glucose mass conc 112 mg/dL High 65-100 [facility] Comment on above: Performed By: #### C MP, IRON, CBCDIF ####[place] [phone]#### FERR, HBA1C ####[place] [phone] Potassium molar conc 3.7 mmol/L Normal 3.5-5.0 [facility] Comment on above: Performed By: #### C MP, IRON, CBCDIF ####[place] [phone]#### FERR, HBA1C ####[place] [phone] Sodium 139 mmol/L Normal 135-146 [facility] Comment on above: Performed By: #### C MP, IRON, CBCDIF ####[place] [phone]#### FERR, HBA1C ####[address] Urea nitrogen 17 mg/dL Normal 10-25 [facility] Comment on above: Performed By: #### C MP, IRON, CBCDIF ####[place] [phone]#### FERR, HBA1C ####[place] [phone] CASE MANAGEMon 07-02-2017 CASE MANAGEM HNO ID: [id number] thor: Kerri Castro) HouseService: Care ManagementAuthor Type: Social WorkerType: Care Mgt Progress NoteFiled: 07/03/2017 9:32 AMNote Text:CARE MANAGEMENT DISCHARGE NOTESERVICE DATE: 07/03/2017SERVICE TIME: LOS: 1 dayAdmission Date: 07/01/2017DISCHARGE ARRANGEMENT (list agency and phone number)Home and Home careProvider: [facility]ori home care HANDOFF COMMUNICATION:summary of care sent to [facility] via [employer] [facility] [employer]. Informed [facility] pt d/c yesterday.TRANSPORTATION ARRANGEMENTS:Car via familyADDITIONAL CONTACT RESOURCES:Discharge Information Admission (Discharged) from 07/01/2017 in [facility] 5D Medical Follow-Up Appointment Specialty Stan Cali Provider Name Swati Senior MD Address [address] [address] [facility], [place] [address] Appointment Date 07/21/17 Appointment Time 9:00AM Additonal Instructions Patient should bring the following to appointment:Picture ID, Insurance Card, Copay (if applicable), Medications/Med List,and Hospital Discharge paperwork. Please provide a minimum of 24 hournotice for cancellations/reschedulin g.Needs Prior to Discharge: Ready for DischargeSIGNATURE: LIZETT Sweeney PATIENT NAME: Alisia Correa Sr.DATE: July 03, 2017 : 9:30 AM PAGER/CONTACT #: Normal [facility] CBCon 07-02-2017 Erythrocyte distribution width Auto Ratio (RBC) 13.6 % Normal 11.5-15.0 [facility] Comment on above: Performed By: #### C MP, IRON, CBCDIF ####[address] [phone]#### FERR, HBA1C ####[facility] [address] [place], [place] [phone] Erythrocytes (RBC) 3.73 10*6/uL Low 4.20-6.00 [facility] Comment on above: Performed By: #### C MP, IRON, CBCDIF ####[place] [address]50 [address] [phone]#### FERR, HBA1C ####[facility] [place] [phone] Hematocrit (HCT) 34.4 % Low 39.0-51.0 [facility] Comment on above: Performed By: #### C MP, IRON, CBCDIF ####[place] [phone]#### FERR, HBA1C ####[place] [address] Hemoglobin mass conc (Bld) 10.9 g/dL Low 13.0-17.0 [facility] Comment on above: Performed By: #### C MP, IRON, CBCDIF ####[place] [phone]#### FERR, HBA1C ####[place] [phone] MCH 29.2 pG Normal 26.0-34.0 [facility] Comment on above: Performed By: #### C MP, IRON, CBCDIF ####[place] [phone]#### FERR, HBA1C ####[place] [address] MCHC mass conc (RBC) 31.7 g/dL Normal 30.5-36.0 [facility] Comment on above: Performed By: #### C MP, IRON, CBCDIF ####[place] [phone]#### FERR, HBA1C ####[address] MCV 92.2 fL Normal 80.0-100.0 [facility] Comment on above: Performed By: #### C MP, IRON, CBCDIF ####[place] [phone]#### FERR, HBA1C ####[address], [place] [phone] Platelet mean volume (PMV) 12.5 fL Normal 9.0-12.7 [facility] Comment on above: Performed By: #### C MP, IRON, CBCDIF ####[place] [phone]#### FERR, HBA1C ####[place] [phone] Platelets 146 10*3/uL Low 150-400 [facility] Comment on above: Performed By: #### C MP, IRON, CBCDIF ####[place] [phone]#### FERR, HBA1C ####[place] [phone] WBC (Leukocytes) 6.04 10*3/uL Normal 3.70-11.00 [facility] Comment on above: Performed By: #### C MP, IRON, CBCDIF ####[place] [phone]#### FERR, HBA1C ####[place] [phone] CONSULT PROGon 07-02-2017 CONSULT PROG HNO ID: [id number] thor: Sonny Pablo) Lzu Elenaervice: Pain ManagementAuthor Type: Physician AssistantType: Consult Progress NoteFiled: 07/02/2017 9:39 AMNote Text:INPATIENT ACUTE PAIN MGMT PROGRESS NOTESPatient Name: Alisia Correa . DATE: July 02, 2017SERVICE TIME: 9:32 AMPRIMARY SERVICE: Ortho and SpineConsult by Dr. Knox for acute post op painINTERVAL HPI: Is the patient having any pain? Yes LOCATION: R kneePAIN SCALE: 5 on a scale of 0-10PAIN CHARACTER: achingFREQUENCY: (How often does the pain occur?) occurs madymnskzu81de WM cc R knee painPERTINENT ROS:denies fever, [...] HISTORYProcedure Laterality Date- COLONOSCOP W/ OR W/O [facility] SPEC Colonoscopy- EGD W/O OR W/BRUSH/WASH [...] 23 Creatinine (mg/dL)Date Value07/02/2017 1.00 BUN (mg/dL)Date Value07/02/2017 17 Anion Gap (mmol/L)Date Value07/02/2017 11 Calcium (mg/dL)Date Value07/02/2017 8.0 WBC (k/uL)Date Value07/02/2017 6.04RBC (m/uL)Date Value07/02/2017 3.73 (L)Hemoglobin (g/dL)Date Value07/02/2017 10.9 (L)Hematocrit (%)Date Value07/02/2017 34.4 (L)MCV (fL)Date Value07/02/2017 92.2MCH (pG)Date Value07/02/2017 29.2MCHC (g/dL)Date Value07/02/2017 31.7RDW-CV (%)Date Value07/02/2017 13.6Platelet Count (k/uL)Date Value07/02/2017 146 (L)MPV (fL)Date Value07/02/2017 12.5ASSESSMENT AND PLAN:56 year old WM s/p TKA R ouj7Mgmdxsa of tramadol 200mg/day and neurontin 600mg ii tab po tidImpressionStatus post right knee replacementAcute right knee painPlanContinue tylenol, cymbalta, topamax,Continue zanaflex prn, and oxyir prncontinue neurontin to 1200mg tid, home medicationcontinue iv toradol 30mg q 6hrsIf lack of pain control, recommend MScontin 15mg tidDiscuss with Dr. GrewalATURE: SHRAVAN Lynn-CDATE: July 02, 2017TIME: 9:32 AM [facility] Glucose POCT (East, West, MD A Use Only)on 07-02-2017 Glucose mass conc 97 mg/dL Normal 65-100 [facility] Comment on above: Performed By: #### C MP, IRON, CBCDIF ####[facility] [phone]#### FERR, HBA1C ####[facility] [address] [place], [place] [phone] Glucose mass conc 125 mg/dL High 65-100 [facility] Comment on above: Performed By: #### C MP, IRON, CBCDIF ####[place] 3[address]50 [address] [phone]#### FERR, HBA1C ####[facility] [address] [place], [place] [phone] NURSING PROGon 07-02-2017 NURSING PROG HNO ID: [id number] thor: [place] [facility] Paul, RNService: (none)Author Type: Advance Clinical NurseType: Nursing Progress NoteFiled: 07/02/2017 1:37 PMNote Text: Nursing Progress NotePatient Name: Alisia Correa . Location: [address]-_ Daily Note:Patient attended discharge instruction class for total joints , wheredischarge instructions were reviewed.Education/Teachi ng points reviewed:Wound care for Silverlon/Mepilex AG - any drainage upon removal notifysurgeonShoweringNut ritionUse of ice, no heatNo pillow under the kneeWearing protocol for jacqueline hose/tonia wrapsSwelling (abnormal vs. Normal)Exercises (flexion vs extension),Level [...] note was completed by: Geneva Miller RN [facility] NURSING PROG HNO ID: [id number] thor: Sobeida JerryRn) Debbie Francesice: (none)Author Type: Registered NurseType: Nursing Progress NoteFiled: 07/02/2017 3:02 PMNote Text: Nursing Progress NotePatient Name: Alisia Correa Sr. Location: [address] [address]/[place] [address]_ Daily Note:1204: Patient is medically cleared to go home per Dr. Hernandez.1501: Patient is cleared from PT and OT to go home.This note was completed by: Sobeida Frances RN [facility] NURSING PROG HNO ID: [id number] thor: Crystal JerryRnJAMIE Gonzalezervice: (none)Author Type: Registered NurseType: Nursing Progress NoteFiled: [...] Rounds:Patient: Alisia Correa Sr.Care Management: Nate Herron Accounts Payable Clerk: Anna Camacho RNOrtho Agricultural Engineering Technician: Anna Miller, RNPharmacist: Nicky Sanches Discussed on [...] Concerns;Explain Scheduling and Routine of Care, Test andProcedures;[place] Patient/Family to Hospital/Unit EnvironmentKnowledge Deficit Goals/Outcomes: Participate [...] July 02, 2017 : 8:49 AM CSN: [id number] Nursing Progress NotePatient Name: Alisia Correa Sr. Location: [address]/LM-[id number]-_ Daily Note: Dr. Rivera placed on consult for tremors. Patient states [place] has a neurologist - patient reports he [...] note was completed by: Crystal Camacho RN [facility] PROGRESSon 07-02-2017 PROGRESS HNO ID: [id number] thor: Ines Art [facility]ston Memorial HospitalAnnervice: General Internal MedicineAuthor Type: PhysicianType: Progress NotesFiled: [...] hrs: BP Temp Temp src Pulse Resp UsD75207/02/17 1455 129/79 37.3 ?C (99.1 ?F) Oral [...] 2+ carotidDATA:CBC, Coags, BMP, Mg, PhosRecent Labs 07/02/817527RUR 6.04HB 10.9*HCT 34.4*PLT 146*NA 139K 3.7CHLOR 105CO2 [...] Hernandez, MDDATE: July 02, 2017TIME: 6:45 PM [facility] PROGRESS HNO ID: [id number] thor: DANIEL Macielervice: Orthopaedic SurgeryAuthor Type: ResidentType: Progress NotesFiled: 07/02/2017 8:40 AMNote Text:ORTHOPAEDIC POSTOP PROGRESS NOTESUBJECTIVEPatient states that they are comfortableWell Controlled knee(s) pain.Denies incisional pain.OBJECTIVEVITAL SIGNS: BP 112/63 Pulse 80 Temp 37.2 ?C (98.9 ?F) (TemporalArtery) Resp 18 Ht 180.3 cm (5' 11 ) Wt 113.4 kg (250 lb) SpO2 95% BMI 34.87 kg/d6HULQCL AND OUTPUT:Intake/Output Summary (Last 24 hours) at [...] 02, 2017 : 8:40 AM PAGER/CONTACT #: [phone] discuss medical issues with medical co-management physicianOrthopedic issue please page me first, [phone] 6pm and on weekends please contact [facility] On-Call [phone] [facility] THERAPY NTon 07-02-2017 THERAPY NT HNO ID: [id number] thor: Nellie (Pt) Jerseyervice: Physical TherapyAuthor Type: Physical TherapistType: Therapy (PT/OT/Speech/Resp)Filed: 07/02/2017 3:04 PMNote Text:PHYSICAL THERAPY MISSED VISITSERVICE DATE: 07/02/2017SERVICE TIME: 1330 to 1335ROOM: [id number] Treatment. Patient not seen due to Declined. Preparing to go toOT for car transfer. Denied questions/concerns from PT standpoint. Clearedafter morning session for D/C home today.SIGNATURE: Nellie David PT PATIENT NAME: Alisia Correa .DATE: July 02, 2017 : 3:01 PM PAGER/CONTACT #: [phone] [facility] THERAPY NT HNO ID: [id number] thor: Rebecca (Ot) Emelina, OTService: Occupational TherapyAuthor Type: Occupational TherapistType: Therapy (PT/OT/Speech/Resp)Filed: 07/02/2017 2:43 PMNote Text:Occupational Therapy TreatmentSERVICE DATE: 07/02/2017SERVICE TIME: 1413 to 1437ROOM: [id number] Discharge Disposition: Home OTRecommended Discharge Disposition Comments: [...] Weakness (generalized);Difficultyw alking-musculoskeletalInt erventions Provided: Therapeutic Activity (73013)Therapeutic Activity (51083) Treatment Minutes: 242 unitsSkilled Intervention(s): Instruction in [...] 24FUNCTIONAL G CODE:OT 6 Clicks Score: 23 (07/02/171412)Self Care Current Status (G8987): CI (07/02/171412)Self Care Goal Status (G8988): CH (07/02/171412)Based on clinical assessment and the score on [...] July 02, 2017 : 2:40 PM PAGER: [phone] [facility] THERAPY NT HNO ID: [id number] thor: Watson (Ot/L) Miryam Connelly: Occupational TherapyAuthoarin Type: Occupational TherapistType: Therapy (PT/OT/Speech/Resp)Filed: 07/02/2017 11:48 AMNote Text:Occupational Therapy EvaluationSERVICE DATE: 07/02/2017SERVICE TIME: 1036 to 1118ROOM: [id number] Discharge Disposition: Home OTRecommended Discharge Disposition Comments: [...] Weakness (generalized);Difficultyw alking-musculoskeletalInt erventions Provided: Evaluation;Therapeutic Activity (61197);Self CareHome Management (30940)$ Evaluation-Low (13599) Billed Units: 1 unitTherapeutic Activity (68498) Treatment Minutes: 101 unitSkilled Intervention(s): Instructed patient [...] transfers using wheeled walker between bedand chair.Self Skilled Nursing Management (68987) Treatment Minutes: 171 unitSkilled Intervention(s): Instructed in [...] G CODE:OT 6 Clicks Score: 21 (07/02/17 103)Self Care Current Status (G8987): CJ (07/02/17 103)Self Care Goal Status (G8988): CI (07/02/17 103)Based on clinical assessment and the score on [...] Commands: 3-step CommandsMini Cog Score: 5 (07/02/17 103)CURRENT FUNCTIONAL STATUS:Current Activities of Daily Living Assist [...] July 02, 2017 : 11:33 AM PAGER: [phone] [facility] THERAPY NT HNO ID: [id number] thor: Nellie (Pt) GuddyService: Physical TherapyAuthor Type: Physical TherapistType: Therapy (PT/OT/Speech/Resp)Filed: 07/02/2017 11:05 AMNote Text:Physical Therapy TreatmentSERVICE DATE: 07/02/2017SERVICE TIME: 0918 to 2ROOM: [id number] Discharge Disposition: Home PTAnticipated Discharge Needs: Physical [...] Diagnosis: Reduced mobility-otherInterventio ns Provided: Therapeutic Exercise (14947);Therapeutic Activity(52228);Gait Training (26264)Therapeutic Exercise (71747) Treatment Minutes: 201 unitSkilled Intervention(s): Instruction in therapeutic exercise seated andsupine TKR exercisesVerbal and tactile cuing provided .Education in HEp and TKR bookletTherapeutic Activity (92459) Treatment Minutes: 101 unitSkilled Intervention(s): Instructed patient in sit to supine using safe,effective techniqueEducation with POC, precautions, home management and set up, nonpharm paincontrol techniques, nonpharm pain control techniques, conservation ofenergy techniquesGait Training (15592) Treatment Minutes: 242 unitsSkilled Intervention(s): Instruction in [...] Assistance (with use of sheet as leg metal machinist after 2trials)Scooting Modified IndependentSit to Stand Stand [...] 02, 2017 : 10:58 AM PAGER/CONTACT #: [phone] [facility] ANES Brian 07-01-2017 ANES POST HNO ID: [id number] thor: Lora Knox IIService: AnesthesiologyAuthor Type: AnesthesiologistType: [...] 2017 : 11:34 AM PAGER/CONTACT #: [phone] [facility] ANES PREOPon 07-01-2017 ANES PREOP HNO ID: [id number] thor: Lora Knox IIService: AnesthesiologyAuthor Type: AnesthesiologistType: [...] results:Hematocrit 40.0 06/17/2017Potassium 4.4 06/17/2017ANES DOS/PREOP NOTE:Vitals: 07/01/473344SI: 115/74Pulse: 67Resp: 16Temp: (!) 35.9 ?C (96.6 [...] HISTORYProcedure Laterality Date- COLONOSCOP W/ OR W/O [facility] SPEC Colonoscopy- EGD W/O OR W/BRUSH/WASH [...] July 01, 2017 : 7:11 AM CSN: [id number] [facility] BRIEF OP NOTon 07-01-2017 BRIEF OP NOT HNO ID: [id number] thor: Tyron Garcíaervice: Orthopaedic SurgeryAuthor Type: PhysicianType: Brief Op NoteFiled: 07/01/2017 9:44 AMNote Text:TOTAL KNEE ARTHROPLASTYBRIEF OPERATIVE / PROCEDURE NOTELOG ID: [id number]/Procedure Date: 07/01/2017Incision/Procedu re Start Time: 8:12 AMIncision Close/Procedure End Time:Surgeon(s)/Procedura list(s) and Streetcar Repairer(s):Surgeon(s) and Role: * Swati Senior - Primary * Tyron Rose - FellowSurgical Streetcar Repairer: Kd Pablo) FineganProcedure(s):Anastasiya campos(s) (LRB):ARTHROPLASTY REPLACE JOINT TOTAL KNEE (Right)Anesthesia: GeneralPeripheral Block Type: None pre-opApproach: Median parapatellarFindings: see operative reportEstimated Blood Loss: 150 mlsSpecimens: NoneComplications: NoneImplant:Implant Name Type Inv. Item Serial No. Repair Servicer Lot No. LRB No. UsedPIN TRIATHLON 3IN FIXATION HEADLESS FLUTED KNEE - [id number] Pin PINTRIATHLON 3IN FIXATION HEADLESS FLUTED KNEE STRY/[employer] [id number] TRIATHLON 7 PA FEMORAL CRUCIATE RETAIN BEAD KNEE RIGHT -[id number] Joint - Knee COMPONENT TRIATHLON 7 PA FEMORAL CRUCIATE RETAINBEAD KNEE RIGHT STRY/[employer] [id number] Right 1INSERT TRIATHLON 6 X3 13MM TIBIAL CONDYLAR STABILIZED KNEE - [id number] - Knee INSERT TRIATHLON 6 X3 13MM TIBIAL CONDYLAR STABILIZED KNEESTRY/[employer] [id number] Right 1BASEPLATE TRIATHLON 6 TRITANIUM [id number] TIBIAL 4 CRUCIFORM PEG KEEL KNEE -[id number] Joint - Knee BASEPLATE TRIATHLON 6 TRITANIUM [id number] TIBIAL 4CRUCIFORM PEG KEEL KNEE STRY/[employer] [id number] Right 1COMPONENT TRITANIUM 35MM METAL 10MM PATELLAR ASYMMETRIC KNEE - [id number] - Knee COMPONENT TRITANIUM 35MM METAL 10MM PATELLAR ASYMMETRIC KNEE STRY/[employer] D4Y3 Right 1Bearing Surface: FixedFixation: CementlessSSI Risk Factors: DMConstraint: Cruciate RetainingOther: NonePre-Op/Pre-Procedure Diagnosis: Primary osteoarthritis of right knee[M17.11]Post-Op/Post- Procedure Diagnosis: Primary osteoarthritis of right knee[M17.11]Weight Bearing Status: Weight Bearing As ToleratedSIGNATURE: Tyron Rose MD PATIENT NAME: Alisia Correa Sr.DATE: July 01, 2017 : 9:43 AM PAGER/CONTACT #: [phone] [facility] CASE MGT INIT [facility] 09-13- 2017 CASE MGT INIT [facility] ID: [id number] thor: Kerri () HouseService: Care ManagementAuthor Type: Social WorkerType: Care Mgt Initial AssessmentFiled: 07/01/2017 1:46 PMNote Text:CARE MANAGEMENT: ASSESSMENT AND DISCHARGE PLANSERVICE DATE: 07/01/2017SERVICE TIME: 12:00pmPRIMARY CARE PHYSICIAN:CHARI Wolfhone: [phone] STATUS: InpatientPOTENTIAL DISCHARGE PLANSHomeHome CareHome OT/PTPatient/Representati ve Stated Goals: return home.Needs Prior to Discharge: To Be Determined;Discharge Prescriptions;OT/PTEvalua tion;Discharge Transportation;Pharmacy Bedside DeliveryHealth Insurance: Medical [place] ServicesLiving Arrangement: HomeLives With: SpouseFinancial Resources: RetiredPrimary Contact:Extended Emergency Contact InformationPrimary Emergency Contact: Armen Correaddress: [address] [place] [id number] Bqmagpgz: SpouseSupportive: Yes- at bedsideOther Important Patient Contacts: [...] Have Advance Directives? Yes: Durable Power of Cable Splicing Technician forHealth Care: Dipti Correa , copy is [...] days? NoHas the Patient Been in a Fpc Facility in the Past 30 days? NoFREEDOM OF CHOICE EXPLAINED:Yes Alisia CorreaFinancial Disclosure ProvidedThe patient and/or family has been given the Provider List: YesProvider List: Home CarePreference[facility] had [facility] in April.HANDOFF COMMUNICATION:referral sent to [facility]. anticipate d/c home tomorrow.SIGNATURE: LIZETT Sweenye PATIENT NAME: Alisia Correa Sr.DATE: July 01, 2017 : 1:41 PM PAGER/CONTACT #: [facility] CONSULTon 07-01-2017 CONSULT HNO ID: [id number] thor: Ines Art BhimaniService: General Internal MedicineAuthor Type: PhysicianType: ConsultsFiled: [...] HISTORYProcedure Laterality Date- COLONOSCOP W/ OR W/O [facility] SPEC Colonoscopy- EGD W/O OR W/BRUSH/WASH [...] 18, height 180.3 cm (5' 11 ), daurhq374.4 kg (250 lb), SpO2 98 %.General appearance: [...] Hernandez, MDDATE: July 01, 2017TIME: 9:01 PM [facility] CONSULT HNO ID: [id number] thor: Sonny Pablo) NovakService: Pain ManagementAuthor Type: [...] (How often does the pain occur?) occurs [id number] WM cc R knee painPERTINENT ROS:denies fever, [...] HISTORYProcedure Laterality Date- COLONOSCOP W/ OR W/O [facility] SPEC Colonoscopy- EGD W/O OR W/BRUSH/WASH [...] SHRAVAN Lynn-CDATE: July 01, 2017TIME: 2:35 PM [facility] Glucose POCT (East, West, MD A Use Only)on 07-01-2017 Glucose mass conc 117 mg/dL High 65-100 [facility] Comment on above: Performed By: #### C MP, IRON, CBCDIF ####[place] [id number]#### FERR, HBA1C ####[place] [address] Glucose mass conc 115 mg/dL High [address] [place] [address] Comment on above: Performed By: #### C MP, IRON, CBCDIF ####[place] [id number]#### FERR, HBA1C ####[place] [address] Glucose mass conc 128 mg/dL High [address] [place] [address] Comment on above: Performed By: #### C MP, IRON, CBCDIF ####[place] [id number]#### FERR, HBA1C ####[place] [address] Glucose mass conc 103 mg/dL High [address] [place] [address] Comment on above: Performed By: #### C MP, IRON, CBCDIF ####[place] [id number]#### FERR, HBA1C ####[place] [address] NURSING PROGon 07-01-2017 NURSING PROG HNO ID: [id number] thor: Chato Osborn (Rn) Jeanna, RNService: NursingAuthor Type: Registered NurseType: Nursing Progress NoteFiled: 07/01/2017 12:08 PMNote Text: Nursing Progress NotePatient Name: Alisia Correa Sr. Location: [facility]/MD-1X-994Y_ Daily Note:PT admitted from PACU in bed [...] Denies nausea.This note was completed by: Chato Meeks, RN [facility] NURSING PROG HNO ID: [id number] thor: Bambi (Rn) Debbie Moellerice: (none)Author Type: Registered NurseType: Nursing Progress NoteFiled: 07/01/2017 9:56 AMNote Text:Discharge Status:Patient is Awakening, and is no airway issues. Skin condition was WNL andwarm.Transported to recovery room via bed with siderails up. Accompanied byanesthetist and BILL/. [facility] NURSING PROG HNO ID: [id number] thor: Kaylee (Rn) Aimee RNService: (none)Author Type: Registered NurseType: Nursing Progress NoteFiled: 07/01/2017 11:13 AMNote Text: Nursing Progress NotePatient Name: Alisia Correa Sr. Location: [place] [address] Daily Note:pt to pacu; sleepy. drsg to [...] note was completed by: Kaylee Yu RN [facility] NURSING PROG HNO ID: [id number] thor: Bambi (Rn) Sunni RNService: (none)Author Type: Registered NurseType: Nursing Progress NoteFiled: 07/01/2017 8:21 AMNote Text:Patient transported to the OR via cart, accompanied by Sabrina Shi.Level of consciousness: Alert and Oriented x 3Emotional Status:CalmSensory Impairments: NoLanguage Barrier: NoMobility Impairments: NoAddressed any patient concerns regarding consents, OR environment, andanesthetics.Body temperature maintained by maintaining OR room temperature obencuk74-58 degrees F, providing patient with warm bath blankets, limiting areasof exposure and providing warm irrigation fluid. [facility] NURSING PROG HNO ID: [id number] thor: Neetu (Rn) Debbie Munsonice: (none)Author Type: Registered NurseType: Nursing Progress NoteFiled: 07/01/2017 7:27 AMNote Text: Nursing Progress NotePatient Name: Alisia Correa . Location: [place] [address]FU-[id number] Daily Note:AANDO.Lungs clear. Rt leg pink, warm, brisk refill. Strongdorsiflexion, pos sensation. Rt DP and PT pulses palp. Pain all over fromarthritis 04/27. Numbness/tingling to both feet.This note was completed by: Neetu Munson RN [facility] OPERATIVE NOon 07-01-2017 OPERATIVE NO HNO ID: [id number] thor: Swati Hansonervice: Orthopaedic SurgeryAuthor Type: PhysicianType: Operative ReportFiled: 07/01/2017 12:16 PMNote Text:OPERATIVE NOTEPATIENT NAME: Alisia Correa Sr. ID: [id number] Date: 07/01/2017Surgeon(s) and Streetcar Repairer(s):Surgeon(s) and Role: * Swati Senior - Primary [...] ccImplants:Implant Name Type Inv. Item Serial No. Repair Servicer Lot No. LRB No. UsedPIN TRIATHLON 3IN FIXATION HEADLESS FLUTED KNEE - [id number] Pin PINTRIATHLON 3IN FIXATION HEADLESS FLUTED KNEE STRY/[employer] [id number] TRIATHLON 7 PA FEMORAL CRUCIATE RETAIN BEAD KNEE RIGHT -[id number] Joint - Knee COMPONENT TRIATHLON 7 PA FEMORAL CRUCIATE RETAINBEAD KNEE RIGHT STRY/[employer] [id number] Right 1INSERT TRIATHLON 6 X3 13MM TIBIAL CONDYLAR STABILIZED KNEE - [id number] - Knee INSERT TRIATHLON 6 X3 13MM TIBIAL CONDYLAR STABILIZED KNEESTRY/[employer] [id number] Right 1BASEPLATE TRIATHLON 6 TRITANIUM [id number] TIBIAL 4 CRUCIFORM PEG KEEL KNEE -[id number] Joint - Knee BASEPLATE TRIATHLON 6 TRITANIUM 91D58DH TIBIAL 4CRUCIFORM PEG KEEL KNEE STRY/[employer] [id number] Right 1COMPONENT TRITANIUM 35MM METAL 10MM PATELLAR ASYMMETRIC KNEE - [id number] - Knee COMPONENT TRITANIUM 35MM METAL 10MM [...] verified this against the epicondylar axis and Ruddy'sline.The femur was sized and drill holes were [...] resected leaving a healthy remnant with greater nntd88ho thickness. The patella was sized with the [...] Senior, MDDATE: July 01, 2017TIME: 12:16 PM [facility] PT EDon 07-01-2017 PT ED HNO ID: [id number] thor: Chely JerryRn) JAMIE Lunaervice: (none)Author Type: Registered NurseType: Patient EducationFiled: 07/01/2017 7:12 AMNote Text:PATIENT EDUCATION TOPIC: PROCEDURE / SURGERY: Pre-op Teaching: Post opcarePATIENT NAME: Alisia Correa Sr. LOCATION: [place] [address]READI NESS TO LEARNCOGNITIVE ABILITY: Alert and orientedMOTIVATION [...] (RECOMMENDATION): NoneElectronically Signed By: Chely Luna RN [facility] PT ED HNO ID: [id number] thor: María JerryRn) JAMIE Grubbservice: NursingAuthor Type: Registered NurseType: Patient EducationFiled: 07/01/2017 6:15 AMNote Text:PATIENT EDUCATION TOPIC: PROCEDURE / SURGERY: Pre-op Teaching:Logistics ProtocolsComplication PreventionSurgical Safety PrinciplesPATIENT NAME: Alisia Correa Sr. LOCATION: [place] [address]READI NESS TO LEARNCOGNITIVE ABILITY: Alert and orientedMOTIVATION [...] (RECOMMENDATION): NoneElectronically Signed By: María Grubbs RN [facility] THERAPY NTon 07-01-2017 THERAPY NT HNO ID: [id number] thor: Nellie (Pt) GuddyService: Physical TherapyAuthor Type: Physical TherapistType: Therapy (PT/OT/Speech/Resp)Filed: 07/01/2017 4:47 PMNote Text:Physical Therapy EvaluationSERVICE DATE: 07/01/2017SERVICE TIME: 1545 to 1630ROOM: [id number] Discharge Disposition: Home PTAnticipated Discharge Needs: Physical [...] Diagnosis: Reduced mobility-otherInterventio ns Provided: Evaluation;Gait Training (29598);TherapeuticActivi ty (11142)$ Evaluation-Low (53559) Billed Units: 1 unitTherapeutic Activity (99524) Treatment Minutes: 121 unitSkilled Intervention(s): Instructed patient in supine to sit pushing withupper extremities to sit upEducation with POC, precautions, TKR booklet, nonpharm pain controltechniques, toileting, assisted to jose underwear, home management and setupGait Training (96360) Treatment Minutes: 131 unitSkilled Intervention(s): Instruction in [...] 01, 2017 : 4:41 PM PAGER/CONTACT #: [phone] [facility] NURSING PROGon 06-19-2017 NURSING PROG HNO ID: [id number] thor: Renae Cox (Rn) Burak, RNService: (none)Author Type: Registered NurseType: Nursing Progress NoteFiled: 06/19/2017 10:02 AMNote Text:PACC visit 06/17/17. H/O SDM,BMI35,YOLA,COPD/asthma . 06/17/17 nasalcANDs(-),ts,ferritin a1c, cbc/d,bmp,iron studies. 04/15/17 ekg. 05/20/17 kneexr. Chart check complete. Penelope HAMILTON [facility] CBC and Differentialon 06-17 Abs Baso 0.03 k/uL Normal 0.00-0.10 [facility] Comment on above: Performed By: #### C MP, IRON, CBCDIF ####[place] 2808216-363-2018#### FERR, HBA1C ####[place] [address] Abs [place] 0.35 k/uL Normal 0.00-0.86 [facility] Comment on above: Performed By: #### C MP, IRON, CBCDIF ####[place] 2808216-363-2018#### FERR, HBA1C ####[place] [address] Abs Neut 2.15 k/uL Normal 1.45-7.50 [facility] Comment on above: Performed By: #### C MP, IRON, CBCDIF ####[place] 2808216-363-2018#### FERR, HBA1C ####[place] [address] Basophils/100 WBC Auto (Bld) 0.8 % [facility] Comment on above: Performed By: #### C MP, IRON, CBCDIF ####[place] 2808216-363-2018#### FERR, HBA1C ####[place] [address] [address] [address] Eosinophils 0.19 10*3/uL Normal 0.00-0.45 [facility] Comment on above: Performed By: #### C MP, IRON, CBCDIF ####[place] [address]13216-363-2018#### FERR, HBA1C ####[place] [address] [address] Eosinophils/100 leukocytes 4.9 % Normal [facility] Comment on above: Performed By: #### C MP, IRON, CBCDIF ####[place] [address]13216-363-2018#### FERR, HBA1C ####[place] [address] Erythrocyte distribution width Auto Ratio (RBC) 14.3 % Normal 11.5-15.0 [facility] Comment on above: Performed By: #### C MP, IRON, CBCDIF ####[place] [address]13216-363-2018#### FERR, HBA1C ####[place] [address] [address] [address] Erythrocytes (RBC) 0.0 /[address] [facility] Comment on above: Performed By: #### C MP, IRON, CBCDIF ####[place] [address]13216-363-2018#### FERR, HBA1C ####[place] [address] [address] [place] [address] Erythrocytes (RBC) 4.35 10*6/uL Normal 4.20-6.00 [facility] Comment on above: Performed By: #### C MP, IRON, CBCDIF ####[place] [address]13216-363-2018#### FERR, HBA1C ####[place] [address] [address] [place] [address] Hematocrit (HCT) 40.0 % Normal 39.0-51.0 [facility] Comment on above: Performed By: #### C MP, IRON, CBCDIF ####[place] [address]13216-363-2018#### FERR, HBA1C ####[place] [address] [address] [place] [address] Hemoglobin mass conc (Bld) 12.8 g/dL Low 13.0-17.0 [facility] Comment on above: Performed By: #### C MP, IRON, CBCDIF ####[place] 2808216-363-2018#### FERR, HBA1C ####[place] [address] Lymphocytes 1.14 10*3/uL Normal 1.00-4.00 [facility] Comment on above: Performed By: #### C MP, IRON, CBCDIF ####[place] 2808216-363-2018#### FERR, HBA1C ####[address] [address] Lymphocytes/100 leukocytes 29.5 % Normal [facility] Comment on above: Performed By: #### C MP, IRON, CBCDIF ####[place] [address]13216-363-2018#### FERR, HBA1C ####[place] [address] [address] [place] [address] MCH 29.4 pG Normal 26.0-34.0 [facility] Comment on above: Performed By: #### C MP, IRON, CBCDIF ####[place] [address]13216-363-2018#### FERR, HBA1C ####[place] [phone] MCHC mass conc (RBC) 32.0 g/dL Normal 30.5-36.0 [facility] Comment on above: Performed By: #### C MP, IRON, CBCDIF ####[place] [address]13216-363-2018#### FERR, HBA1C ####[address] [place] [phone] MCV 92.0 fL Normal 80.0-100.0 [facility] Comment on above: Performed By: #### C MP, IRON, CBCDIF ####[place] [address]13216-363-2018#### FERR, HBA1C ####[place] [phone] Monocytes/100 leukocytes 9.1 % Normal [facility] Comment on above: Performed By: #### C MP, IRON, CBCDIF ####[place] 37[address]13216-363-2018#### FERR, HBA1C ####[place] [phone] Neutrophils/100 WBC Auto (Bld) 55.7 % Normal [facility] Comment on above: Performed By: #### C MP, IRON, CBCDIF ####[address] #### FERR, HBA1C ####[place] [phone] Platelet mean volume (PMV) 12.3 fL Normal 9.0-12.7 [facility] Comment on above: Performed By: #### C MP, IRON, CBCDIF ####[place] [address]13216-363-2018#### FERR, HBA1C ####[phone] Platelets 176 10*3/uL Normal 150-400 [facility] Comment on above: Performed By: #### C MP, IRON, CBCDIF ####[address] #### FERR, HBA1C ####[place] [phone] WBC (Leukocytes) 3.86 10*3/uL Normal 3.70-11.00 [facility] Comment on above: Performed By: #### C MP, IRON, CBCDIF ####[place] 37[address]13216-363-2018#### FERR, HBA1C ####[place] [phone] Comp Metabolic Panelon 06-17 Alanine aminotransferase (ALT) 14 U/L Normal 5-50 [facility] Comment on above: Performed By: #### C MP, IRON, CBCDIF ####[place] [address]13216-363-2018#### FERR, HBA1C ####[place] [phone] Albumin 4.1 g/dL Normal 3.5-5.0 [facility] Comment on above: Performed By: #### C MP, IRON, CBCDIF ####[place] [phone]#### FERR, HBA1C ####[place] [phone] Alkaline phosphatase (ALP) 95 U/L Normal 40-150 [facility] Comment on above: Performed By: #### C MP, IRON, CBCDIF ####[address] #### FERR, HBA1C ####[place] [phone] Anion gap 11 mmol/L Normal 10-20 [facility] Comment on above: Performed By: #### C MP, IRON, CBCDIF ####[address] #### FERR, HBA1C ####[place] [address] [address] [place] [address] Aspartate aminotransferase (AST) 18 U/L Normal 7-40 [facility] Comment on above: Performed By: #### C MP, IRON, CBCDIF ####[place] [phone]#### FERR, HBA1C ####[address] [place] [address] Bilirubin (total) 0.2 mg/dL Normal 0.0-1.5 [facility] Comment on above: Performed By: #### C MP, IRON, CBCDIF ####[place] [phone]#### FERR, HBA1C ####[address] [place] [address] Calcium 9.2 mg/dL Normal 8.5-10.5 [facility] Comment on above: Performed By: #### C MP, IRON, CBCDIF ####[address] #### FERR, HBA1C ####[place] [address] [address] [place] [address] Chloride 104 mmol/L Normal 98-110 [facility] Comment on above: Performed By: #### C MP, IRON, CBCDIF ####[address] #### FERR, HBA1C ####[place] [address] [address] [place] [phone] CO2 25 mmol/L Normal 23-32 [facility] Comment on above: Performed By: #### C MP, IRON, CBCDIF ####[address] #### FERR, HBA1C ####[place] [phone] Creatinine 1.07 mg/dL Normal 0.70-1.40 [facility] Comment on above: Performed By: #### C MP, IRON, CBCDIF ####[place] [phone]#### FERR, HBA1C ####[place] [phone] eGFR (non-black) mL/min/{1.73_m2} Normal >60 [facility] Comment on above: Performed By: #### C MP, IRON, CBCDIF ####[place] [phone]#### FERR, HBA1C ####[place] [phone] Glucose mass conc 83 mg/dL Normal 65-100 [facility] Comment on above: Performed By: #### C MP, IRON, CBCDIF ####[address] #### FERR, HBA1C ####[place] [phone] Potassium molar conc 4.4 mmol/L Normal 3.5-5.0 [facility] Comment on above: Performed By: #### C MP, IRON, CBCDIF ####[address] #### FERR, HBA1C ####[place] [phone] Protein 7.1 g/dL Normal 6.0-8.4 [facility] Comment on above: Performed By: #### C MP, IRON, CBCDIF ####[place] [phone]#### FERR, HBA1C ####[place] [address] [address] [place] [phone] Sodium 140 mmol/L Normal 135-146 [facility] Comment on above: Performed By: #### C MP, IRON, CBCDIF ####[address] #### FERR, HBA1C ####[place] [phone] Urea nitrogen 18 mg/dL Normal - [facility] Comment on above: Performed By: #### C MP, IRON, CBCDIF ####[place] [phone]#### FERR, HBA1C ####[place] [phone] Ferritinon 06-17-2017 Ferritin 45.3 ng/mL Normal 30.3-565.7 [facility] Comment on above: Performed By: #### C MP, IRON, CBCDIF ####[address] #### FERR, HBA1C ####[place] [phone] Hemoglobin A1con 06-17-2017 Glucose mass conc 105 mg/dL Normal [facility] Comment on above: Result Comment: eAG: (Estimated average glucose) is a calculated value from HgbA1c and is retention representative of the average blood glucose level in the last 2-3 month period. Performed By: #### C MP, IRON, CBCDIF ####[address] #### FERR, HBA1C ####[address] [place] [phone] Hemoglobin A1c/Hemoglobin.total mass fraction (Bld) 5.3 % Normal 4.3-5.6 [facility] Comment on above: Performed By: #### C MP, IRON, CBCDIF ####[address] #### FERR, HBA1C ####[place] [address] [address] [place] [phone] Iron and TIBCon 06-17-2017 Iron 42 ug/dL Normal 35-150 [facility] Comment on above: Performed By: #### C MP, IRON, CBCDIF ####[place] [phone]#### FERR, HBA1C ####[place] [address] [address] [place] [phone] TIBC 335 ug/dL Normal 250-450 [facility] Comment on above: Performed By: #### C MP, IRON, CBCDIF ####[place] [phone]#### FERR, HBA1C ####[place] [address] [address] [phone] Transferrin Saturatn 13 % Low 20-55 [facility] Comment on above: Performed By: #### C MP, IRON, CBCDIF ####[address] #### FERR, HBA1C ####[place] [address] [address] [phone] Staph aureus PCRon 7 MRSA PCR Negative [facility] Comment on above: Performed By: #### S APCR ####[place] [phone] [address] [address] [place] [phone] S aureus Spec Source Nasal [facility] Comment on above: Performed By: #### S APCR ####[place] [id number] [address] [phone] [id number] [place], [place] [phone] Staph aureus PCR Negative [facility] Comment on above: Performed By: #### S APCR ####[address] [phone] [place] [phone] Type and SCR (30D)on 017 ABO/RH(D) Negative [facility] Comment on above: Performed By: #### T SCR30 ####[address] [phone] Antibody Screen Negative [facility] Comment on above: Performed By: #### T SCR30 ####[address] [phone] HOSPon 05-20-2017 HOSP Patient:Eddi Correa davion Cox Sr.MRN: Height:5' 11 (1.803 m)Weight:250 lb (113.399 [...] ORAL per tablettamsulosin (FLOMAX) 0.4 mg ORAL Hn43Onheebfiq Sulfate 1.25 mg/3 mL INHALATION nebulizer solutionALBUTEROL [...] % 06/17/2017 51.0 39.0Progress Notes (PT [facility]):Nisa Jackman PT 06/24/2017 10:58 AM SignedPatient was seen for TKR measurements today.See flowsheet data for results of measurement.Nisa Jackman, PT, DPTProgress Notes (PRE ANES CATHOLIC):Lily Porras CNP 06/17/2017 1:29 PM SignedHISTORY AND PHYSICAL EXAMINATIONSERVICE DATE: 06/17/2017SERVICE TIME: 9:03 AMPRIVALLEYWISE HEALTH MEDICAL CENTERY CARE PHYSICIAN: NANCY Wolf FOR VISIT:Alisia Correa [...] HISTORYProcedure Laterality Date- COLONOSCOP W/ OR W/O [facility] SPEC Colonoscopy- EGD W/O OR W/BRUSH/WASH [...] documented by Carla Edwards LPN on 04/15/2017 [id number].Pt reports ALL Medications are accurate 04/15/17CURRENT ALLERGIES:ALLERGIESAllerg en Reactions- Avelox [Moxifloxaci* Rash, Hives, Itching, Shortness of Breath- Celebrex [Celecoxib] Rash, Hives, GI Upset- Erythromycin Base Hives, Shortness of Breath- Klonopin [Clonazepa* Itching- Levaquin [Levofloxa* HivesREVIEW OF SYSTEMS:PAIN ASSESSMENT: PainPain Score: 5/10Pain Location: Knee-RightDescription: Dull;AchingDuration Amount of Time: 1Duration Units: YearsFrequency: ContinuousIntervention: ColdGeneral: No weight loss, malaise or fevers.Neuro: No history of TIA's, stroke, 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 tumor, impaired sensorium, hemiplegia,paraplegia or quadraplegia. No neurological symptoms or problems., Postive forNo history of TIA's, stroke, 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 tumor, impaired sensorium, hemiplegia,paraplegia or quadraplegia. No neurological symptoms or problems.Respiratory: Positive for Asthma, Mild COPD: daily inhalers + prn. Smoker. YOLA(doesn not use cpap)Cardiovascular: No history of HTN requiring medication, no history of angina,CHF, UT, cardiac surgery or stents. Denies rest pain, [...] 17, 2017 : 9:03 AM PAGER/CONTACT #: [phone] Ellis, CNP 06/17/2017 9:48 AM AddendumPATIENT PREOPERATIVE INSTRUCTIONSSwati Senior MD has scheduled you for your procedure at this surgerycenter:[facility]: [phone] --[address] [place] [address].You will need to call the day prior [...] surgery.- NO jewelry, body piercings, makeup, nail slovak, hairpins or contacts are nirmal worn the [...] Arrival Time for Surgery:- You MUST call [facility] the afternoon before surgery after3:30 pm (or Thursday for Thursday surgery) for a scheduled arrival time.Please be aware that emergency situations arise, which may delay or change yoursurgical time. If this happens, we will notify you as soon as possible andregret any inconvenience.Lily Porras, NATHENPrevious VersionChrisada Chao LPN 06/17/2017 1:29 PM SignedHCG wipes, instructions and demonstration provided this visit. Pt verbalizedunderstanding. Information for joint replacement class with dates and timesprovided. Ny Chao LPN Normal [facility] Vital Signs Date Time Vital Sign Value Performing Clinician Facility 03-16-2025 09:27-0400 Body height 177.8 cm Heidy Marin MD Work Phone: [facility] 03-16-2025 09:27-0400 Body mass index (BMI) [Ratio] 33.72 kg/m2 Heidy Marin MD Work Phone: [facility] 03-16-2025 09:27-0400 Body temperature 97.59 [degF] Heidy Marin MD Work Phone: [facility] 03-16-2025 09:27-0400 Body weight 106.59 kg Heidy Marin MD Work Phone: [facility] 03-16-2025 09:27-0400 Diastolic blood pressure 70 mm[Hg] Heidy Marin MD Work Phone: [facility] 03-16-2025 09:27-0400 Heart rate 73 /min Heidy Marin MD Work Phone: [facility] 03-16-2025 09:27-0400 SaO2% (BldA) [Mass fraction] 93 % Heidy Marin MD Work Phone: [facility] 03-16-2025 09:27-0400 Systolic blood pressure 106 mm[Hg] Heidy Marin MD Work Phone: [facility] 01-30-2025 14:04-0400 Body temperature 97.1 [degF] Ellne Kuns DO Work Phone: [facility] 01-30-2025 14:04-0400 Diastolic blood pressure 88 mm[Hg] Ellen Kuns DO Work Phone: [facility] 01-30-2025 14:04-0400 Heart rate 72 /min Ellen Kuns DO Work Phone: [facility] 01-30-2025 14:04-0400 Systolic blood pressure 132 mm[Hg] Ellen Kuns DO Work Phone: [facility] 12-29-2024 13:57-0400 Body height 177.8 cm Ellen Kuns DO Work Phone: [facility] 12-29-2024 13:57-0400 Body mass index (BMI) [Ratio] 33 kg/m2 Ellen Kuns DO Work Phone: [facility] 12-29-2024 13:57-0400 Body weight 104.32 kg Ellen Kuns DO Work Phone: [facility] 12-29-2024 13:57-0400 Diastolic blood pressure 80 mm[Hg] Ellen Kuns DO Work Phone: [facility] 12-29-2024 13:57-0400 Heart rate 72 /min Ellen Kuns DO Work Phone: [facility] 12-29-2024 13:57-0400 Respiratory rate 18 /min Ellen Kuns DO Work Phone: [facility] 12-29-2024 13:57-0400 SaO2% (BldA) [Mass fraction] 97 % Ellen Kuns DO Work Phone: [facility] 12-29-2024 13:57-0400 Systolic blood pressure 110 mm[Hg] Ellen Kuns DO Work Phone: [facility] 11-28-2024 16:16-0500 Diastolic blood pressure 94 mm[Hg] LYN RODRI [facility] [place] 11-28-2024 16:16-0500 Heart rate 79 /min LYN RODRI [facility] [place] 11-28-2024 16:16-0500 Mean blood pressure 115 mm[Hg] LYN RODRI [facility] [place] 11-28-2024 16:16-0500 Respiratory rate 18 /min LYN RODRI [facility] [place] 11-28-2024 16:16-0500 Systolic blood pressure 156 mm[Hg] LYN RODRI [facility] [place] 09-27-2024 18:05-0500 Body temperature 98 [degF] Ellen Kuns DO Work Phone: [facility] 09-27-2024 18:03-0500 Diastolic blood pressure 80 mm[Hg] Ellen Kuns DO Work Phone: [facility] 09-27-2024 18:03-0500 Heart rate 59 /min Ellen Kuns DO Work Phone: [facility] 09-27-2024 18:03-0500 Respiratory rate 20 /min Ellen Kuns DO Work Phone: [facility] 09-27-2024 18:03-0500 SaO2% (BldA) [Mass fraction] 95 % Ellen Kuns DO Work Phone: [facility] 09-27-2024 18:03-0500 Systolic blood pressure 141 mm[Hg] Ellen Kuns DO Work Phone: [facility] 09-27-2024 17:31-0500 Inhaled oxygen flow rate 6 L/min Ellen Kuns DO Work Phone: [facility] 09-27-2024 15:56-0500 Body height 177.8 cm Ellen Kuns DO Work Phone: [facility] 09-27-2024 15:56-0500 Body weight 102.05 kg Ellen Kuns DO Work Phone: [facility] 09-27-2024 12:15-0500 Blood Pressure Location LYN MACE [facility] [place] 09-27-2024 12:15-0500 Body temperature 98.78 [degF] LYN MACE [facility] [place] 09-27-2024 12:15-0500 Diastolic blood pressure 71 mm[Hg] LYN MACE [facility] [place] 09-27-2024 12:15-0500 Heart rate 65 /min LYN MACE [facility] [place] 09-27-2024 12:15-0500 Respiratory rate 20 /min LYN MACE [facility] [place] 09-27-2024 12:15-0500 Systolic blood pressure 101 mm[Hg] LYN MACE [facility] [place] 08-23-2024 11:30-0500 Body height 177.8 cm Samira Bowden MD Work Phone: [facility] 08-23-2024 11:30-0500 Body mass index (BMI) [Ratio] 33 kg/m2 Samira Bowden MD Work Phone: [facility] 08-23-2024 11:30-0500 Body weight 104.33 kg Samira Bowden MD Work Phone: [facility] Comment on above: patient reported 08-23-2024 11:30-0500 Diastolic blood pressure 72 mm[Hg] Samira Bowden MD Work Phone: [facility] [employer] [facility] 08-23-2024 11:30-0500 Heart rate 78 /min Samira Bowden MD Work Phone: [facility] [employer] [facility] 08-23-2024 11:30-0500 Systolic blood pressure 116 mm[Hg] Samira Bowden MD Work Phone: [facility] 06-21-2024 14:11-0400 Body height 177.8 cm [facility] 06-21-2024 14:11-0400 Body mass index (BMI) [Ratio] 30.1 kg/m2 [facility] 06-21-2024 14:11-0400 Body weight 95.25 kg [facility] 06-21-2024 14:11-0400 Diastolic blood pressure 60 mm[Hg] [facility] 06-21-2024 14:11-0400 Heart rate 55 /min [facility] 06-21-2024 14:11-0400 Respiratory rate 16 /min [facility] 06-21-2024 14:11-0400 SaO2% (BldA) [Mass fraction] 98 % [facility] 06-21-2024 14:11-0400 Systolic blood pressure 100 mm[Hg] [facility] 04-26-2024 17:17-0400 Body weight 6 mg [facility] 03-17-2024 11:58-0400 Diastolic blood pressure 62 mm[Hg] Heidy Marin MD Work Phone: [facility] 03-17-2024 11:58-0400 Systolic blood pressure 100 mm[Hg] Heidy Marin MD Work Phone: [facility] 03-17-2024 11:57-0400 Body mass index (BMI) [Ratio] 30.13 kg/m2 Heidy Marin MD Work Phone: [facility] 03-17-2024 11:57-0400 Body weight 95.25 kg Heidy Marin MD Work Phone: [facility] 03-17-2024 11:57-0400 Heart rate 70 /min Heidy Marin MD Work Phone: [facility] 03-15-2024 11:18-0400 Blood Pressure Location Pippa Orzech [facility] [place] 03-15-2024 11:18-0400 Body temperature 98.24 [degF] Pippa Orzech [facility] [place] 03-15-2024 11:18-0400 Diastolic blood pressure 88 mm[Hg] Pippa Orzech [facility] [place] 03-15-2024 11:18-0400 Heart rate 73 /min Pippa Orzech [facility] [place] 03-15-2024 11:18-0400 Respiratory rate 16 /min Pippa Orzech [facility] [place] 03-15-2024 11:18-0400 Systolic blood pressure 138 mm[Hg] Pippa Orzech [facility] [place] 02-11-2024 10:18-0400 Diastolic blood pressure 80 mm[Hg] DO Ellen Kuns Work Phone: [facility] 02-11-2024 10:18-0400 Heart rate 60 /min DO Ellen Kuns Work Phone: [facility] 02-11-2024 10:18-0400 Respiratory rate 16 /min DO Ellen Kuns Work Phone: [facility] 02-11-2024 10:18-0400 SaO2% (BldA) [Mass fraction] 97 % DO Ellen Kuns Work Phone: [facility] 02-11-2024 10:18-0400 Systolic blood pressure 139 mm[Hg] DO Ellen Kuns Work Phone: [facility] 02-11-2024 08:29-0400 Body height 177.8 cm DO Ellen Kuns Work Phone: [facility] 02-11-2024 08:29-0400 Body weight 95.25 kg DO Ellen Kuns Work Phone: [facility] 02-10-2024 13:09-0400 Body height 180.34 cm [facility] 02-10-2024 13:09-0400 Body mass index (BMI) [Ratio] 29.2 kg/m2 [facility] 02-10-2024 13:09-0400 Body weight 95.25 kg [facility] 02-10-2024 13:09-0400 Diastolic blood pressure 60 mm[Hg] [facility] 02-10-2024 13:09-0400 Heart rate 67 /min [facility] 02-10-2024 13:09-0400 Respiratory rate 16 /min [facility] 02-10-2024 13:09-0400 SaO2% (BldA) [Mass fraction] 97 % [facility] 02-10-2024 13:09-0400 Systolic blood pressure 112 mm[Hg] [facility] 01-28-2024 11:06-0400 Body height 177.8 cm Heidy Marin MD Work Phone: [facility] 01-28-2024 11:06-0400 Body mass index (BMI) [Ratio] 30.13 kg/m2 Heidy Marin MD Work Phone: [facility] 01-28-2024 11:06-0400 Body weight 95.25 kg Heidy Marin MD Work Phone: [facility] 01-28-2024 11:06-0400 Diastolic blood pressure 69 mm[Hg] Heidy Marin MD Work Phone: [facility] 01-28-2024 11:06-0400 Systolic blood pressure 100 mm[Hg] Heidy Marin MD Work Phone: [facility] 01-22-2024 08:59-0400 Body height 180.34 cm [facility] 01-22-2024 08:59-0400 Body mass index (BMI) [Ratio] 27.8 kg/m2 [facility] 01-22-2024 08:59-0400 Body weight 90.71 kg [facility] 01-22-2024 08:59-0400 Diastolic blood pressure 62 mm[Hg] [facility] 01-22-2024 08:59-0400 Heart rate 62 /min [facility] 01-22-2024 08:59-0400 Systolic blood pressure 112 mm[Hg] [facility] 11-16-2023 13:17-0500 Diastolic blood pressure 82 mm[Hg] Reena SPEARS Work Phone: [facility] 11-16-2023 13:17-0500 Heart rate 58 /min Reena SPEARS Work Phone: [facility] 11-16-2023 13:17-0500 Systolic blood pressure 144 mm[Hg] Reena Cervantes APRN-SUPPORT MERCHANDISER [facility] Phone[facility] 11-10-2023 14:30-0500 Body height 180.34 cm Ellen Kuns Other [facility] 11-10-2023 14:30-0500 Diastolic blood pressure 80 mm[Hg] Ellen Kuns Other [facility] 11-10-2023 14:30-0500 Respiratory rate 16 /min Ellen Kuns Other [employer] Other 11-10-2023 14:30-0500 SaO2% (BldA) [Mass fraction] 94 % Ellen Kuns Other [employer] Other 11-10-2023 14:30-0500 Systolic blood pressure 128 mm[Hg] Ellen Kuns Other [facility] 09-02-2023 13:45-0500 Body height 180.34 cm Ellen Kuns Other [employer] Other 09-02-2023 13:45-0500 Diastolic blood pressure 62 mm[Hg] Ellen Kuns Other [employer] Other 09-02-2023 13:45-0500 Respiratory rate 18 /min Ellen Kuns Other [employer] Other 09-02-2023 13:45-0500 SaO2% (BldA) [Mass fraction] 97 % Ellen Kuns Other [employer] Other 09-02-2023 13:45-0500 Systolic blood pressure 92 mm[Hg] Ellen Kuns Other [employer] Other 05-19-2023 15:15-0400 Body height 180.34 cm Ellen Brain [employer] Other [employer] Other 05-19-2023 15:15-0400 Diastolic blood pressure 60 mm[Hg] Ellen Kuns Other [employer] Other 05-19-2023 15:15-0400 Respiratory rate 18 /min Ellen Kuns Other [employer] Other 05-19-2023 15:15-0400 SaO2% (BldA) [Mass fraction] 98 % Ellen Kuns Other [employer] Other 05-19-2023 15:15-0400 Systolic blood pressure 80 mm[Hg] Ellen Kuns Other [employer] Other 03-20-2023 09:06-0400 Blood Pressure Location Fidel IBARRA [facility] [place] 03-20-2023 09:06-0400 Diastolic blood pressure 78 mm[Hg] Fidel IBARRA [facility] [place] 03-20-2023 09:06-0400 Heart rate 70 /min Fidel IBARRA [facility] [place] 03-20-2023 09:06-0400 Respiratory rate 16 /min Fidel IBARRA [facility] [place] 03-20-2023 09:06-0400 Systolic blood pressure 132 mm[Hg] Fidel IBARRA [facility] [place] 02-20-2023 09:33-0400 Blood Pressure Location Fidel IBARRA [facility] [place] 02-20-2023 09:33-0400 Diastolic blood pressure 78 mm[Hg] Fidel IBARRA [facility] [place] 02-20-2023 09:33-0400 Heart rate 68 /min Fidel IBARRA [facility] [place] 02-20-2023 09:33-0400 Respiratory rate 16 /min Fidel IBARRA [facility] [place] 02-20-2023 09:33-0400 Systolic blood pressure 130 mm[Hg] Fidel IBARRA [facility] [place] 01-30-2023 11:54-0400 Blood Pressure Location Fidel IBARRA [facility] [place] 01-30-2023 11:54-0400 Diastolic blood pressure 72 mm[Hg] Fidel IBARRA [facility] [place] 01-30-2023 11:54-0400 Heart rate 68 /min Fidel IBARRA [facility] [place] 01-30-2023 11:54-0400 Respiratory rate 16 /min Fidel IBARRA [facility] [place] 01-30-2023 11:54-0400 Systolic blood pressure 99 mm[Hg] Fidel IBARRA [facility] [place] 11-11-2022 15:00-0500 Body height 180.34 cm Ellen Crabtree Other [employer] Other 11-11-2022 15:00-0500 Body mass index (BMI) [Ratio] 28.59 kg/m2 Ellen Kuns Other [employer] Other 11-11-2022 15:00-0500 Body temperature 95.6 [degF] Ellen Kuns Other [employer] Other 11-11-2022 15:00-0500 Body weight 92.99 kg Ellen Kuns Other [employer] Other 11-11-2022 15:00-0500 Diastolic blood pressure 56 mm[Hg] Ellen Kuns Other [employer] Other 11-11-2022 15:00-0500 Respiratory rate 18 /min Ellen Kuns Other [employer] Other 11-11-2022 15:00-0500 SaO2% (BldA) [Mass fraction] 99 % Ellen Kuns Other [employer] Other 11-11-2022 15:00-0500 Systolic blood pressure 80 mm[Hg] Ellen Kuns Other [employer] Other 09-02-2022 14:45-0500 Body height 180.34 cm Ellen Kuns Other [employer] Other 09-02-2022 14:45-0500 Body mass index (BMI) [Ratio] 27.19 kg/m2 Ellen Kuns Other [employer] Other 09-02-2022 14:45-0500 Body weight 88.45 kg Ellen Kuns Other [employer] Other 09-02-2022 14:45-0500 Diastolic blood pressure 60 mm[Hg] Ellen Kuns Other [employer] Other 09-02-2022 14:45-0500 Respiratory rate 18 /min Ellen Kuns Other [employer] Other 09-02-2022 14:45-0500 SaO2% (BldA) [Mass fraction] 92 % Ellen Kuns Other [employer] Other 09-02-2022 14:45-0500 Systolic blood pressure 92 mm[Hg] Ellen Kuns Other [employer] Other 02-18-2022 09:29-0400 Diastolic blood pressure 55 mm[Hg] Frank Reddy MD Work Phone: [employer] 02-18-2022 09:29-0400 Systolic blood pressure 105 mm[Hg] Frank Reddy MD Work Phone: [employer] 02-18-2022 08:30-0400 Body temperature 97.9 [degF] Frank Reddy MD Work Phone: [employer] 02-18-2022 08:30-0400 Heart rate 75 /min Frank Reddy MD Work Phone: [employer] 02-18-2022 08:30-0400 Respiratory rate 18 /min Frank Reddy MD Work Phone: [employer] 02-18-2022 08:30-0400 SaO2% (BldA) [Mass fraction] 97 % Frank Reddy MD Work Phone: [employer] 02-09-2022 05:15-0400 Body mass index (BMI) [Ratio] 34.44 kg/m2 Frank Reddy MD Work Phone: [employer] 02-09-2022 05:15-0400 Body weight 108.86 kg Frank Reddy MD Work Phone: [employer] 02-07-2022 09:09-0400 Body height 177.8 cm Frank Reddy MD Work Phone: [employer] 01-27-2022 10:15-0400 Body height 180.34 cm Ellen Kuns Other [employer] Other 01-27-2022 10:15-0400 Body mass index (BMI) [Ratio] 29.15 kg/m2 Ellen Kuns Other [employer] Other 01-27-2022 10:15-0400 Body weight 94.8 kg Ellen Kuns Other [employer] Other 01-27-2022 10:15-0400 Diastolic blood pressure 70 mm[Hg] Ellen Kuns Other [employer] Other 01-27-2022 10:15-0400 Respiratory rate 18 /min Ellen Kuns Other [employer] Other 01-27-2022 10:15-0400 SaO2% (BldA) [Mass fraction] 98 % Ellen Kuns Other [employer] Other 01-27-2022 10:15-0400 Systolic blood pressure 98 mm[Hg] Ellen Kuns Other [employer] Other 12-05-2021 15:00-0500 Body height 180.34 cm Ellen Kuns Other [employer] Other 12-05-2021 15:00-0500 Body mass index (BMI) [Ratio] 29.43 kg/m2 Ellen Kuns Other [employer] Other 12-05-2021 15:00-0500 Body weight 95.71 kg Elleneliane Bordens Other [employer] Other 12-05-2021 15:00-0500 Diastolic blood pressure 70 mm[Hg] Ellen Michis Other [employer] Other 12-05-2021 15:00-0500 Respiratory rate 18 /min Ellen Bordens Other [employer] Other 12-05-2021 15:00-0500 SaO2% (BldA) [Mass fraction] 99 % Ellen Crabtree Other [employer] Other 12-05-2021 15:00-0500 Systolic blood pressure 106 mm[Hg] Ellen Kuns Other [employer] Other 12-03-2021 16:32-0500 Body height 177.8 cm [employer] 12-03-2021 16:32-0500 Body mass index (BMI) [Ratio] 30.42 kg/m2 [employer] 12-03-2021 16:32-0500 Body surface area Derived from formula 2.18 m2 [employer] 12-03-2021 16:32-0500 Body weight 96.16 kg [employer] 12-03-2021 16:32-0500 Diastolic blood pressure 62 mm[Hg] [employer] 12-03-2021 16:32-0500 Heart rate 80 /min [employer] 12-03-2021 16:32-0500 Systolic blood pressure 102 mm[Hg] [employer] 11-19-2021 14:44-0500 Body height 177.8 cm [employer] 11-19-2021 14:44-0500 Body mass index (BMI) [Ratio] 31.18 kg/m2 [employer] 11-19-2021 14:44-0500 Body surface area Derived from formula 2.21 m2 [employer] 11-19-2021 14:44-0500 Body weight 98.57 kg [employer] 11-19-2021 14:44-0500 Diastolic blood pressure 70 mm[Hg] [employer] 11-19-2021 14:44-0500 Heart rate 64 /min [employer] 11-19-2021 14:44-0500 Systolic blood pressure 110 mm[Hg] [employer] 09-05-2021 12:00-0500 58 1 Ellen Crabtree Work Phone: [address] Work Phone: Comment on above: [id number] 08-27-2021 11:30-0500 Body height 180.34 cm Ellen Crabtree Other [facility] [employer] Other 08-27-2021 11:30-0500 Body mass index (BMI) [Ratio] 31.24 kg/m2 Ellen Kuns Other [employer] Other 08-27-2021 11:30-0500 Body weight 101.61 kg Ellen Kuns Other [employer] Other 08-27-2021 11:30-0500 Diastolic blood pressure 68 mm[Hg] Ellen Kuns Other [employer] Other 08-27-2021 11:30-0500 Respiratory rate 18 /min Ellen Kuns Other [employer] Other 08-27-2021 11:30-0500 SaO2% (BldA) [Mass fraction] 98 % Ellen Michis Other [employer] Other 08-27-2021 11:30-0500 Systolic blood pressure 98 mm[Hg] Ellen Kuns Other [employer] Other 08-16-2021 14:23-0400 Diastolic blood pressure 68 mm[Hg] Ellen R Kuns Work Phone: [employer] DO Work Phone: 08-16-2021 14:23-0400 Systolic blood pressure 90 mm[Hg] Ellen R Kuns Work Phone: [employer] DO Work Phone: 08-16-2021 14:21-0400 Body height 177.8 cm Ellen R Kuns Work Phone: [employer] 250 DO Work Phone: 08-16-2021 14:21-0400 Body mass index (BMI) [Ratio] 32.14 kg/m2 Ellen R Kuns Work Phone: [facility] 250 DO Work Phone: 08-16-2021 14:21-0400 Body surface area Derived from formula 2.19 m2 Ellen Crabtree Work Phone: [facility] 250 DO Work Phone: 08-16-2021 14:21-0400 Body weight 101.61 kg Elleneliane Crabtree Work Phone: [facility] 250 DO Work Phone: 08-16-2021 14:21-0400 Diastolic blood pressure 68 mm[Hg] Elleneliane Crabtree Work Phone: [facility] 250 DO Work Phone: 08-16-2021 14:21-0400 Heart rate 72 /min Elleneliane Crabtree Work Phone: [facility] 250 DO Work Phone: 08-16-2021 14:21-0400 Systolic blood pressure 90 mm[Hg] Ellen Crabtree Work Phone: [facility] 250 DO Work Phone: Encounters Encounter Date Encounter Type Care Provider Facility Start: 07-13-2025 ambulatory Pippa Diaz y:[facility] Start: 06-13-2025 End: 06-13-2025 ambulatory Michelle Mahoney Facility:[facility] Start: 06-13-2025 End: 06-13-2025 Patient encounter procedure Michelle Mahoney [facility] Start: 06-12-2025 End: 06-12-2025 ambulatory JAC SALINAS [facility] Start: 06-06-2025 End: 06-06-2025 Telephone encounter Eliane Patricia Neurology, A Department of [facility] Comment on above: New Patient Start: 06-05-2025 ambulatory [facility] Start: 06-05-2025 End: 06-05-2025 ambulatory [facility] Start: 05-15-2025 End: 05-15-2025 ambulatory LYN MACE Facility:[facility] [place] Start: 05-15-2025 End: 05-15-2025 Patient encounter procedure [facility] MACE [facility] Start: 04-26-2025 End: 04-26-2025 Orders Only Lyn Banks MD Work Phone: [facility] - Neurophysiology Comment on above: Chronic intractable headache, unspecified headache type (Primary Dx) Start: 04-25-2025 End: 04-25-2025 ambulatory [facility] Start: 04-24-2025 End: 04-24-2025 ambulatory LYN MACE Facility:[facility] Start: 04-24-2025 End: 04-24-2025 Patient encounter procedure [facility]ACE [facility] Start: 04-19-2025 End: 04-19-2025 Orders Only Lyn Banks MD Work Phone: [facility] - Neurophysiology Comment on above: Parkinson's disease without dyskinesia or fluctuating manifestations (CMS-HCC) (Primary Dx); Dysphagia, unspecified type Start: 04-11-2025 End: 04-11-2025 Clinisync Result Encounter Heidy Marin MD Work Phone: [facility] External Department Unsolicited Start: 04-11-2025 End: 04-11-2025 Clinisync Result Encounter Heidy Marin MD Work Phone: [facility] External Department Unsolicited Start: 04-05-2025 End: 04-05-2025 [facility] Start: 04-04-2025 End: 04-06-2025 Refabel Bowden MD Work Phone: [facility] Neurology Comment on above: Spinal stenosis of l umbar region with neurogenic claudication Start: 03-31-2025 End: 03-31-2025 Orders Only Lyn Banks MD Work Phone: [facility] Neurology, A Department of [facility] Comment on above: Dysautonomia orthost atic hypotension syndrome (Primary Dx) Start: 03-31-2025 End: 03-31-2025 Patient encounter procedure LYN MACE [facility] [place] Start: 03-29-2025 End: 03-29-2025 ambulatory LYN BANKS [facility] Start: 03-16-2025 End: 03-16-2025 Office outpatient visit 15 minutes Heidy Marin MD Work Phone: [facility] Comment on above: Encounter for abdomi nal aortic aneurysm (AAA) screening (Primary Dx); Open wound of left great toe, subsequent encounter; Critical limb ischemia of left lower extremity with gangrene ([facility] Start: 03-16-2025 End: 03-16-2025 ambulatory [facility] Ruel TOMAS [facility] Start: 03-14-2025 End: 03-14-2025 ambulatory LYN BANKS [facility] pital Start: 03-14-2025 End: 03-14-2025 Office outpatient visit 40 minutes Lyn Banks MD Work Phone: [facility] Neurology, A Department of [facility] Comment on above: Dysphagia, unspecifi ed type (Primary Dx); Globus sensation; Dysautonomia orthostatic hypotension syndrome; Constipation, unspecified constipation type; Cerebellar dysmetria Start: 03-10-2025 End: 03-10-2025 ambulatory LYN E RODRI Facility:[facility] Start: 02-28-2025 End: 02-28-2025 Clinisync Result Encounter Heidy Marin MD Work Phone: [facility] External Department Unsolicited Start: 02-28-2025 End: 02-28-2025 Clinisync Result Encounter Heidy Marin MD Work Phone: [facility] External Department Unsolicited Start: 02-24-2025 ambulatory [place]YN E [place] [place] Start: 02-17-2025 End: 02-17-2025 ambulatory LYN E RODRI [facility] Start: 02-15-2025 End: 02-15-2025 ambulatory Ellen Kuns DO Work Phone: [facility] Work Phone: Start: 02-15-2025 End: 02-15-2025 Patient encounter procedure Ellen Kuns DO Work Phone: [facility]-CT Scan [facility] [place] Work Phone: Start: 01-30-2025 End: 01-30-2025 Patient encounter procedure Ellen Kuns DO Work Phone: [facility] Work Phone: Start: 01-26-2025 End: 01-26-2025 ambulatory LYN E RODRI Facility:[facility] Start: 12-29-2024 End: 12-29-2024 ambulatory Ellen Kuns DO Work Phone: [facility] Work Phone: Start: 12-29-2024 End: 12-29-2024 Patient encounter procedure Ellen Kuns DO Work Phone: [facility] [place] Work Phone: Start: 12-27-2024 End: 12-27-2024 ambulatory LYN E RODRI Facility:[facility] Start: 12-13-2024 Non-patient / Non-visit Ellen Kuns DO Work Phone: [facility] Work Phone: Start: 12-13-2024 End: 12-13-2024 ambulatory Ellen Kuns DO Work Phone: [facility] Work Phone: Start: 12-13-2024 End: 12-13-2024 Departed Referred Ellen Kuns DO Work Phone: [facility]-LAB Path [facility] [place] [facility] Start: 12-13-2024 Non-patient / Non-visit Ellen Kuns DO Work Phone: [facility] Work Phone: Start: 11-28-2024 End: 11-28-2024 ambulatory LYN E RODRI [facility] Start: 11-28-2024 End: 11-28-2024 Lab Drop off LYN Skyla RODRI [facility] Start: 11-28-2024 End: 11-28-2024 ambulatory LYN E RODRI Facility:[facility] Start: 11-28-2024 End: 11-28-2024 Patient encounter procedure LYN E RODRI [facility] Start: 11-28-2024 End: 11-28-2024 Patient encounter procedure Ellen Kuns DO Work Phone: [facility]-Lab [place] Work Phone: Start: 11-28-2024 End: 11-28-2024 ambulatory Ellen Kuns DO Work Phone: [facility] Work Phone: Start: 11-25-2024 ambulatory LYN E RODRI Facili ty:[facility] [place] Start: 11-23-2024 End: 11-23-2024 Isabelle Bowden MD Work Phone: [facility] Comment on above: Parkinson's disease ([facility] Start: 11-23-2024 End: 11-23-2024 Isabelle Bowden MD Work Phone: [facility] Comment on above: Parkinson's disease ([facility]) Start: 11-19-2024 End: 11-21-2024 Isabelle Bowden MD Work Phone: [facility] Comment on above: Parkinson's disease ([facility]) Start: 10-28-2024 End: 10-28-2024 ambulatory PA-C LYN Skyla RODRI Facility:[facility] Start: 10-28-2024 End: 10-28-2024 Patient encounter procedure LYN DEUTSCHRY [facility] Start: 10-24-2024 End: 10-24-2024 Isabelle Bowden MD Work Phone: [facility] Comment on above: Orthostasis Start: 09-27-2024 End: 09-27-2024 Emergency department patient visit Ellen Crabtree DO Work Phone: [facility]-Emergency Room Work Phone: Start: 09-27-2024 End: 09-27-2024 ambulatory PA-C LYN Skyla RODRI [facility] Start: 09-27-2024 End: 09-27-2024 Lab Drop off LYN Skyla RODRI 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: [facility] Comment on above: Orthostasis Start: 09-25-2024 End: 09-30-2024 Refill Jose Eduardo Owen MD Work Phone: [facility] Comment on above: Migraine without aur a and without status migrainosus, not intractable Spinal stenosis of l umbar region with neurogenic claudication Start: 08-30-2024 End: 08-30-2024 ambulatory PA-C LYN MACE Facility:[facility] Start: 08-30-2024 End: 08-30-2024 Patient encounter procedure LYN MACE [facility] Start: 08-29-2024 End: 08-31-2024 Refill Samira Bowden MD Work Phone: [facility] Comment on above: Parkinson's disease ([facility]) Start: 08-23-2024 End: 08-23-2024 Office outpatient visit 40 minutes Samira Bowden MD Work Phone: [facility] Comment on above: 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); Spinal stenosis of lumbar region with neurogenic claudication; Parkinson's disease without dyskinesia or fluctuating manifestations ([facility]) Start: 08-23-2024 End: 08-23-2024 ambulatory SAMIRA Rayray BOWDEN [facility] Start: 08-09-2024 End: 08-09-2024 ambulatory Pippa X Orzech Facility:[facility] Start: 08-09-2024 End: 08-09-2024 Patient encounter procedure Pippa X Orzech [facility] Start: 07-31-2024 End: 08-03-2024 Refill Reena eCrvantes 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-SUPPORT [employer] Work Phone: [facility] Comment on above: Spinal stenosis of l umbar region with neurogenic claudication Start: 07-19-2024 End: 07-19-2024 ambulatory BILL MACE Facility:[facility] Start: 07-19-2024 End: 07-19-2024 Patient encounter procedure LYN MACE [facility] Start: 07-14-2024 End: 07-15-2024 Refill Reena Cervantes 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-SUPPORT [employer] Work Phone: [facility] Comment on above: Orthostatic hypotens ion due to Parkinson's disease ([facility]) Start: 06-30-2024 End: 06-30-2024 ambulatory Madeline Foster Facility:[facility] Start: 06-30-2024 End: 06-30-2024 Patient encounter procedure Madeline Foster [facility] Start: 06-21-2024 End: 06-21-[address] [facility] Work Phone: Start: 06-21-2024 End: 06-21-2024 Patient encounter procedure [facility] [place] Work Phone: Start: 06-14-2024 End: 06-14-2024 ambulatory Fidel IBARRA [facility] Start: 06-14-2024 End: 06-14-2024 Lab Drop off Fidel IBARRA [facility] Start: 06-14-2024 End: 06-14-2024 ambulatory Fidel IBARRA Facility:[facility] Start: 06-14-2024 End: 06-14-2024 Patient encounter procedure Fidel IBARRA [facility] Start: 06-09-2024 End: 06-09-2024 ambulatory LYN DEUTSCHRY Facility:[facility] Start: 06-09-2024 End: 06-09-2024 Patient encounter procedure LYN E RODRI [facility] Start: 05-25-2024 Non-patient / Non-visit [facility] [place] Work Phone: Start: 05-24-2024 End: 05-25-2024 Refill Jose Eduardo Owen MD Work Phone: [facility] Comment on above: Migraine without aur a and without status migrainosus, not intractable Start: 05-16-2024 End: 05-16-2024 ambulatory Fidel R IBARRA Facility:CD:[id number] Start: 04-27-2024 Non-patient / Non-visit [facility] Work Phone: Start: 04-26-2024 Non-patient / Non-visit [facility] Work Phone: Start: 04-26-2024 End: 04-26-2024 ambulatory Carl BRIZUELA Facility:[id number] Start: 04-25-2024 Non-patient / Non-visit [facility] Work Phone: Start: 04-24-2024 End: 04-27-2024 Non-patient / Non-visit [facility] Work Phone: Start: 04-24-2024 Non-patient / Non-visit [facility] Work Phone: Start: 04-23-2024 Non-patient / Non-visit [facility] Work Phone: Start: 04-11-2024 End: 04-29-2024 Refill Reena SPEARS Work Phone: [facility] Comment on above: Spinal stenosis of l umbar region with neurogenic claudication Start: 04-05-2024 End: 04-05-2024 Lab Drop off Pippa X Orzech [facility] Start: 04-05-2024 End: 04-05-2024 ambulatory Pippa X Orzech [facility] Start: 04-05-2024 End: 04-05-2024 Patient encounter procedure Pippa X Orzech [facility] Start: 03-28-2024 End: 03-28-2024 Telephone encounter Rachel Mixon CMA [facility] Start: 03-17-2024 End: 03-17-2024 Office outpatient visit 15 minutes Heidy Marin MD Work Phone: [facility] Comment on above: 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 ([facility]) (Primary Dx) Start: 03-15-2024 End: 03-15-2024 ambulatory Pippa X Orzech Facility:[facility] Start: 03-15-2024 End: 03-15-2024 Patient encounter procedure Pippa X Orzech [facility] Start: 02-25-2024 End: 02-25-2024 Telephone encounter [facility] Start: 02-23-2024 End: 02-23-2024 ambulatory Fidel IBARRA [facility] Start: 02-23-2024 End: 02-23-2024 Lab Drop off Fidel IBARRA [facility] Start: 02-22-2024 End: 02-23-2024 ambulatory Fidel IBARRA Facility:[facility] Comment on above: Migraine without aur a and without status migrainosus, not intractable Start: 02-22-2024 End: 02-22-2024 Patient encounter procedure Fidel IBARRA [facility] Start: 02-18-2024 End: 02-18-2024 Telephone encounter Rachel Mixon CMA [facility] Start: 02-15-2024 End: 02-15-2024 Telephone encounter Rachel Mixon CMA [facility] Start: 02-13-2024 End: 02-15-2024 Refabel Owen MD Work Phone: [facility] Comment on above: Migraine without aur a and without status migrainosus, not intractable Start: 02-11-2024 Non-patient / Non-visit DO Barbie tt Kuns Work Phone: [facility] Gastroenterology Work Phone: Start: 02-11-2024 End: 02-11-2024 Admission to same day surgery center DO Ellen Kuns Work Phone: [facility]-Digestive [facility] Work Phone: Start: 02-11-2024 End: 02-11-2024 ambulatory DO Ellen Kuns Work Phone: [facility] Work Phone: Start: 02-10-2024 End: 02-10-2024 ambulatory [facility] Work Phone: Start: 02-10-2024 End: 02-10-2024 Patient encounter procedure [facility] [place] Work Phone: Start: 02-09-2024 End: 02-15-2024 Refabel Owen MD Work Phone: [facility] Comment on above: Migraine without aur a and without status migrainosus, not intractable Start: 02-01-2024 End: 02-01-2024 ambulatory Fidel IBARRA Facility:[facility] [place] Start: 02-01-2024 End: 02-01-2024 Patient encounter procedure Fidel IBARRA [facility] Start: 01-28-2024 End: 01-28-2024 Telephone encounter Rachel [facility] Start: 01-28-2024 End: 01-28-2024 Office outpatient visit 25 minutes Heidy Marin MD Work Phone: [facility] Comment on above: Encounter for screen ing for abdominal aortic aneurysm (AAA) in patient 50 years of age or older with history of smoking (Primary Dx); Critical limb ischemia of both lower extremities with gangrene ([facility]); Abdominal aortic aneurysm dissection ([facility]) Start: 01-22-2024 End: 01-22-[address] [facility] Work Phone: Start: 01-22-2024 End: 01-22-2024 Patient encounter procedure [facility] Gastroenterology Work Phone: Start: 01-12-2024 Telephone encounter Rachel [facility] Start: 01-11-2024 End: 01-11-2024 ambulatory Fidel IBARRA Facility:[facility] Start: 01-11-2024 End: 01-11-2024 Patient encounter procedure Fidel IBARRA [facility] Start: 01-08-2024 Telephone encounter Rachel [facility] Start: 01-06-2024 Non-patient / Non-visit [facility] Work Phone: Start: 12-14-2023 End: 12-14-2023 ambulatory Fidel IBARRA Facility:[facility] [place] Start: 12-11-2023 Refill Fidelia nicole [facility] Comment on above: Orthostasis Start: 11-17-2023 Telephone encounter Ellen Crabtree [facility] Start: 11-17-2023 End: 11-17-2023 ambulatory Fidel IBARRA [facility] Other Start: 11-17-2023 End: 11-17-2023 Patient encounter procedure Fidel IBARRA [facility] Start: 11-16-2023 End: 11-16-2023 Office outpatient visit 40 minutes Reena SPEARS Work Phone: [facility] Comment on above: Parkinson's disease without dyskinesia or fluctuating manifestations (Primary Dx); Spinal stenosis of lumbar region with neurogenic claudication; Anxiety Start: 11-14-2023 Refill Samira amezquita MD Work Phone: [facility] Comment on above: Parkinson's disease Start: 11-10-2023 End: 11-10-2023 ambulatory Ellen Crabtree Other [employer] Other Start: 11-10-2023 Office outpatient vi sit 25 minutes Ellen Crabtree [facility] Start: 11-10-2023 End: 11-10-2023 Patient encounter procedure [facility]- Start: 11-09-2023 End: 11-09-2023 ambulatory Samira Bowden MD Work Phone: [facility] [employer] Comment on above: Parkinson's disease Start: 11-09-2023 Telephone encounter Ellen Crabtree [facility] Start: 10-21-2023 End: 10-21-2023 Lab Drop off Fidel IBARRA [facility] Start: 10-21-2023 End: 10-21-2023 ambulatory Fidel IBARRA [facility] Start: 10-05-2023 End: 10-05-2023 ambulatory Ellen Crabtree Other [employer] and Grants Other Start: 10-05-2023 Telephone encounter Ellen Kuns [facility] [place] Start: 09-22-2023 End: 09-22-2023 ambulatory Ellen Kuns Other [employer]s [employer]ants Other Start: 09-22-2023 Telephone encounter Ellen Kuns [facility] [place] Start: 09-16-2023 End: 09-16-2023 ambulatory Ellen Kuns Other Contracts [employer] Grants Other Start: 09-16-2023 Telephone encounter Ellen Kuns [facility] [place] Start: 09-15-2023 Telephone encounter Ellen Kuns [facility] [place] Start: 09-15-2023 End: 09-15-2023 ambulatory Fidel IBARRA [facility] Other Start: 09-15-2023 End: 09-15-2023 Patient encounter procedure Fidel IBARRA [facility] [place] Start: 09-02-2023 End: 09-02-2023 ambulatory Ellen Kuns Other Contracts [employer] Grants Other Start: 09-02-2023 Office outpatient vi sit 25 minutes Ellen Kuns [facility] [place] Start: 08-25-2023 End: 08-25-2023 ambulatory Ellen Kuns Other [employer]s [employer] Grants Other Start: 08-25-2023 Telephone encounter Ellen Kuns [facility] [place] Start: 08-14-2023 End: 08-14-2023 ambulatory Fidel IBARRA Facility:[facility] [place] Start: 08-14-2023 End: 08-14-2023 Patient encounter procedure Fidel IBARRA [facility] [place] Start: 07-17-2023 End: 07-17-2023 ambulatory Fidel IBARRA [facility] Start: 07-17-2023 End: 07-17-2023 Lab Drop off Fidel IBARRA [facility] Start: 07-17-2023 End: 07-17-2023 ambulatory Fidel IBARRA Facility:[facility] [place] Start: 07-17-2023 End: 07-17-2023 Patient encounter procedure Fidel IBARRA [facility] [place] Start: 07-03-2023 End: 07-03-2023 ambulatory Ellen Crabtree Other Contracts [employer] Grants Other Start: 07-03-2023 Telephone encounter Ellen Crabtree [facility] Start: 07-01-2023 End: 07-01-2023 ambulatory Fidel IBARRA [facility] Start: 06-19-2023 End: 06-19-2023 ambulatory Fidel IBARRA [facility] Start: 06-19-2023 End: 06-19-2023 Lab Drop off Fidel IBARRA [facility] Start: 06-19-2023 End: 06-19-2023 ambulatory Fidel IBARRA Facility:[facility] [place] Start: 06-19-2023 End: 06-19-2023 Patient encounter procedure Fidel R WALTER [facility] Start: 06-16-2023 End: 06-16-2023 ambulatory Elleneliane Crabtree Other [employer]s [employer] Grants Other Start: 06-16-2023 Telephone encounter Elleneliane Crabtree [facility] Start: 06-11-2023 End: 06-11-2023 ambulatory Ellen Kuns Other Contracts [employer] Grants Other Start: 06-11-2023 Telephone encounter Ellen Michis [facility] Start: 05-26-2023 End: 05-26-2023 ambulatory Ellen Kuns Other [employer]s [employer] Grants Other Start: 05-26-2023 Telephone encounter Ellen Michis [facility] Start: 05-25-2023 End: 05-25-2023 Lab Drop off Fidel IBARRA [facility] Start: 05-25-2023 End: 05-25-2023 ambulatory Fidel IBARRA [place] Start: 05-25-2023 End: 05-25-2023 Patient encounter procedure Fidel IBARRA [facility] Start: 05-19-2023 End: 05-19-2023 ambulatory Ellen Michis Other [employer]s [employer] Grants Other Start: 05-19-2023 Office outpatient vi sit 25 minutes Ellen Michis [facility] Start: 04-27-2023 Telephone encounter Ellen Michis [facility] Start: 04-27-2023 End: 04-27-2023 ambulatory Fidel IBARRA [facility] Other Start: 04-27-2023 End: 04-27-2023 Patient encounter procedure Fidel IBARRA [facility] [place] Start: 04-16-2023 End: 04-16-2023 ambulatory Ellen Kuns Other [employer]s [employer] Grants Other Start: 04-16-2023 Telephone encounter Ellen Kuns [facility] Start: 03-20-2023 End: 03-20-2023 Patient encounter procedure Fidel IBARRA [facility] [place] [employer] Start: 03-20-2023 End: 03-20-2023 Patient encounter procedure Fidel IBARRA [facility] [place] Start: 03-19-2023 End: 03-19-2023 ambulatory Ellen Kuns Other [employer]s [employer] Grants Other Start: 03-19-2023 Telephone encounter Ellen Kuns [facility] Start: 02-20-2023 End: 02-20-2023 Patient encounter procedure Fidel IBARRA [facility] [employer] Start: 02-17-2023 End: 02-17-2023 ambulatory Ellen Kuns Other [employer]s [employer] Grants Other Start: 02-17-2023 Telephone encounter Ellen Kuns [facility] Start: 02-16-2023 End: 02-16-2023 ambulatory Ellen Kuns Other [employer]ants Other Start: 02-16-2023 Telephone encounter Ellen Kuns [facility] Start: 02-11-2023 End: 02-11-2023 ambulatory Ellen Kuns Other [employer]ants Other Start: 02-11-2023 Telephone encounter Ellen Kuns [facility] Start: 01-30-2023 End: 01-30-2023 Patient encounter procedure Fidel IBARRA [facility] [place] Start: 01-24-2023 Encounter for preprocedural cardiovascular examination DR FIDEL IBARRA . [facility] Start: 01-24-2023 Encounter for preprocedural laboratory examination DR FIDEL IBARRA . [facility] Start: 01-22-2023 End: 01-22-[address] FIDEL IBARRA . Facility:[facility] Start: 01-20-2023 End: 01-21-[address] FIDEL IBARRA . Facility:[facility] Start: 01-20-2023 End: 01-21-2023 Encounter for preprocedural cardiovascular examination DR FIDEL IBARRA . Facility: Start: 01-14-2023 End: 01-14-2023 ambulatory Ellen Crabtree Other [employer]s [employer] Grants Other Start: 01-14-2023 Telephone encounter Ellen Crabtree [facility] Start: 12-24-2022 End: 12-24-2022 Unlisted evaluation and management service Say Reyes APRN.[facility] Work Phone: Urology Comment on above: NO SHOW (Primary Dx) Start: 12-18-2022 End: 12-18-2022 ambulatory MICHELL CRABTREE . Facility: Start: 12-08-2022 End: 12-08-2022 ambulatory Ellen Crabtree Other Contracts and Grants Other Start: 12-08-2022 Telephone encounter Ellen Crabtree [facility] Start: 12-06-2022 ambulatory Zelda Saenz RN NURSE O N CALL Comment on above: Medication Problem Start: 12-01-2022 End: 12-01-2022 Evaluation and management of inpatient SUSIE LOYA Facility:[facility] Start: 11-20-2022 End: 12-06-2022 Evaluation and management of inpatient ELLEN CRABTREE Facility:[facility] Start: 11-19-2022 End: 11-19-2022 ambulatory Ellen Crabtree Other [employer] Grants Other Start: 11-19-2022 Telephone encounter Ellen Kuns [facility] Start: 11-17-2022 End: 11-17-2022 ambulatory Ellen Kuns Other [employer]ants Other Start: 11-17-2022 Telephone encounter Ellen Kuns [facility] Start: 11-14-2022 End: 11-14-2022 ambulatory Ellen Kuns Other [employer]ants Other Start: 11-14-2022 Telephone encounter Ellen Kuns [facility] Start: 11-11-2022 End: 11-11-2022 ambulatory Ellen Kuns Other [employer]ants Other Start: 11-11-2022 Office outpatient vi sit 25 minutes Ellen Kuns [facility] Start: 11-10-2022 End: 11-10-2022 ambulatory Ellen Kuns Other [employer] Grants Other Start: 11-10-2022 Telephone encounter Ellen Kuns [facility] Start: 11-05-2022 End: 11-09-2022 Evaluation and management of inpatient DR ALTON MANCINI . Facility:[facility] Start: 10-08-2022 End: 10-08-[address] DOCTOR TIPTON Facility:[facility] Start: 09-04-2022 End: 09-04-2022 ambulatory Ellen Kuns Other [employer] Grants Other Start: 09-04-2022 Telephone encounter Ellen Kuns [facility] Start: 09-02-2022 End: 09-02-2022 ambulatory Ellen Kuns Other [employer]ants Other Start: 09-02-2022 Office outpatient vi sit 25 minutes Ellen Kuns [facility] Start: 08-29-2022 End: 08-29-2022 ambulatory Ellen Kuns Other [employer]ants Other Start: 08-29-2022 Telephone encounter Ellen Kuns [facility] [place] Start: 08-28-2022 End: 08-28-2022 ambulatory Ellen Kuns Other [employer] Grants Other Start: 08-28-2022 Telephone encounter Ellen Kuns [facility] [place] Start: 06-17-2022 End: 06-17-2022 ambulatory Ellen Kuns Other [employer]s [employer] Grants Other Start: 06-17-2022 Telephone encounter Ellen Kuns [facility] Start: 05-21-2022 End: 05-21-2022 ambulatory Ellen Kuns Other [employer]ants Other Start: 05-21-2022 Telephone encounter Ellen Kuns [facility] Start: 04-08-2022 End: 04-08-2022 ambulatory Ellen Kuns Other [employer]s [employer] Grants Other Start: 04-08-2022 Telephone encounter Ellen Kuns [facility] Start: 04-03-2022 Telephone encounter Ellen R Suleman ns Work Phone: [facility] 600 DO Work Phone: Start: 03-25-2022 End: 03-25-2022 ambulatory Ellen Kuns Other Contracts [employer] Grants Other Start: 03-25-2022 Telephone encounter [facility] Kuns [facility] Start: 03-18-2022 End: 03-18-2022 ambulatory Ellen Kuns Other [employer]ants Other Start: 03-18-2022 Telephone encounter Ellen Kuns [facility] Start: 03-10-2022 End: 03-10-2022 ambulatory Ellen Michis Other [employer]s [employer] Grants Other Start: 03-10-2022 Telephone encounter Ellen Michis [facility] Start: 02-07-2022 End: 02-18-2022 Evaluation and management of inpatient ARCHANAN F [facility] Start: 02-07-2022 End: 02-18-2022 Evaluation and management of inpatient Archanan [facility] YBARRA Work Phone: [facility] Orthopedics [phone] Comment on above: Lumbar stenosis with neurogenic claudication (Primary Dx) Start: 01-27-2022 End: 01-27-2022 ambulatory Ellen Michis Other [employer]s [employer] Grants Other Start: 01-27-2022 Encounter for other preprocedural examination Elleneliane Bordens [facility] Start: 01-27-2022 Office outpatient vi sit 25 minutes Ellen Michis [facility] Start: 01-27-2022 Pre-procedure evalua tion check Ellen Crabtree Other Contracts [employer] Grants Other Start: 01-23-2022 End: 01-24-2022 [facility] Start: 01-23-2022 End: 01-28-2022 ambulatory SELVON [facility] Start: 01-20-2022 End: 01-20-2022 ambulatory Ellen Kuns Other [employer] Grants Other Start: 01-20-2022 Telephone encounter Ellen Michis [facility] Start: 01-13-2022 End: 01-13-2022 ambulatory Ellen Kuns Other [employer] Grants Other Start: 01-13-2022 Telephone encounter Ellen Michis [facility] Start: 12-05-2021 End: 12-05-2021 ambulatory Ellen Michis Other [employer]s [employer] Grants Other Start: 12-05-2021 Office outpatient vi sit 25 minutes Ellen Michis [facility] Start: 12-03-2021 Split Srvc Lashon G [place] r[place] Other [facility] Office Start: 11-19-2021 Split Srvc Lashon G [place] r[place] Other [facility] Office Start: 11-11-2021 Telephone encounter Phani Henderson MD Work Phone: Pain Management Comment on above: Post Op Start: 10-23-2021 End: 10-23-2021 ambulatory Ellen Leyda Other [employer]s [employer] Grants Other Start: 10-23-2021 Telephone encounter Ellen Crabtree [facility] Start: 10-07-2021 End: 10-07-2021 ambulatory Ellen Leyda Other [employer]ants Other Start: 10-07-2021 Telephone encounter Ellen Michidavion [facility] Start: 09-30-2021 End: 09-30-2021 ambulatory Ellen Leyda Other [employer] Grants Other Start: 09-30-2021 Telephone encounter Ellen Crabtree [facility] Start: 09-27-2021 End: 09-27-2021 ambulatory Yifan Gama Other [employer]s [employer] Grants Other Start: 09-27-2021 Telephone encounter Yifan Gama [facility] Start: 09-08-2021 Chart Update Ellen Crabtree Work Phone: [facility] [address] [place] Work Phone: Start: 09-05-2021 Patient encounter procedure Ellen R Kuns Work Phone: [facility] [address] [place] Work Phone: Start: 09-03-2021 End: 09-03-2021 ambulatory Ellen Kuns Other [employer]s [employer] Grants Other Start: 09-03-2021 Telephone encounter Ellen Kuns [facility] Start: 08-27-2021 End: 08-27-2021 ambulatory Ellen Kuns Other [employer]ants Other Start: 08-27-2021 Office outpatient vi sit 25 minutes Ellen Kuns [facility] Start: 08-21-2021 End: 08-21-2021 ambulatory Ellen Kuns Other [place] [employer] Other Start: 08-21-2021 Telephone encounter Ellen Kuns [facility] Start: 08-16-2021 Office consultation new/estab patient 80 min Ellen R Kuns Work Phone: [facility] [address] [place] Work Phone: Start: 08-16-2021 Patient encounter procedure Ellen R Kuns Work Phone: [facility] [address] [place] Work Phone: Start: 08-16-2021 Telephone encounter Yifan Silver [facility] Start: 08-06-2021 Office outpatient vi sit 15 minutes Ellen Kuns [facility] Start: 08-15-2020 End: 08-15-2020 Subsequent hospital visit by physician [facility] Joana Work Phone: Radiology Comment on above: Radiculopathy of lum bar region [M54.16] Start: 06-21-2020 End: 06-21-2020 Subsequent hospital visit by physician Xr [facility] Comment on above: 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 Start: 12-07-[address] 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[employer] Work Phone: Start: 02-09-2022 Gluc bld gluc mntr d ev cleared fda spec home use Frank Reddy MD Work Phone: Start: 02-09-2022 Cortisol total Marcos Jorgensen MD Work Phone: Start: 02-09-2022 Blood count complete auto&auto difrntl wbc 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[employer] Work Phone: Start: 02-09-2022 Gluc bld gluc mntr d ev cleared fda spec home use Frnak Reddy MD Work Phone: Start: 02-08-2022 Gluc bld gluc mntr d ev cleared fda spec home use Frank Reddy MD Work Phone: Start: 02-08-2022 Anion gap [Moles/Vol] J coy Ramsey 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[employer] Work Phone: Start: 02-08-2022 End: 02-08-2022 Basic metabolic panel calcium total Marcos Jorgensen MD Work Phone: Start: 02-08-2022 GLOMERULAR FILTRATIO N RATE, ESTIMATED Marielena Mustafa 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[employer] Work Phone: Start: 02-08-2022 SCAN OF BLOOD SMEAR Ricardo Mustafa 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[employer] Work Phone: Start: 02-08-2022 Gluc bld gluc mntr d ev cleared fda spec home use Frank Reddy MD Work Phone: Start: 02-08-2022 Gluc bld gluc mntr d ev cleared fda spec home use Frank Reddy MD Work Phone: Start: 02-08-2022 Radiologic exam ches t single view Marielena Mustafa 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[employer] Work Phone: Start: 02-08-2022 Blood count hemoglobin Marielena Mustafa 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[employer] Work Phone: Start: 02-08-2022 Ecg routine ecg w/le ast 12 lds i&r only Marielena Mustafa 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[employer] Work Phone: Start: 02-08-2022 Gluc bld gluc [...] Work Phone: Comment on above: Performed at [facility] [address] [place] [address] Start: 02-07-2022 Gluc bld gluc mntr d [...] spine w/ o contrast material Oumou Mcqueen APRN.[employer] Work Phone: Start: 04-24-2020 Antibody screen Start: 10-18-2019 Antibody screen Start: 03-08-2019 Procedure on prostate Sabrina IBARRA Start: 03-08-2019 Transurethral prostatectomy Fidel WALTER Start: 01-25-2019 Injection of therape utic substance into bladder wall Fidel IBARRA Start: 10-19-2018 Total colonoscopy Ellen R Michis Work Phone: Start: 02-08-2018 H/O: artificial joint [...] Td Vaccines (3 - Td or Tdap) [facility] Start: 11-15-2028 DTaP/Tdap/Td vaccine (3 - Td or Tdap) DTaP/Tdap/Td vaccine (3 - Td or Tdap) [facility] Start: 11-15-2028 Urine microalbumin profile DTAP,TDAP,TD (3 - Td or Tdap) [facility] Start: 08-11-2026 Colonoscopy COLONOSCOPY [facility] Start: 08-11-2026 COLORECTAL CANCER SCREENING COLORECTAL CANCER SCREENING [facility] Start: 03-16-2026 Adult BMI Screening Adult BMI Screen ing [facility] Start: 03-16-2026 Tobacco Screening Tobacco Screening [facility] Start: 09-12-2025 End: 09-12-2025 Patient encounter procedure 09/12/2025 11:00 AM EST [facility] Department of [address] [place] [phone] Tony Martin MD [address] [place] [address] [address] [place], [place] [id number] [facility] Neurology, A Department of [facility] Start: 08-23-2025 Adult BMI Follow Up Plan Adult BMI F ollow Up Plan [facility] Start: 08-23-2025 Adult BMI Screening Adult BMI Screen ing [facility] Start: 08-23-2025 Depression Screening Depression Scre ening [facility] Start: 08-23-2025 Tobacco Screening Tobacco Screening [facility] Start: 07-26-2025 End: 07-26-2025 Patient encounter procedure 07/26/2025 10:00 AM EDT Office Visit [facility], A Department of [address] [place] [address] Lyn Banks MD [address] [place] [address], [facility] [address] [place] [address] [facility] Neurology, A Department of [facility] Start: 06-19-2025 Influenza vaccination Influenza Vacc ine [facility] Start: 04-25-2025 End: 04-25-2025 Patient encounter procedure 04/25/2025 3:00 PM EDT Office Visit [facility] Neurology, A Department of [address] [place] [address] Lyn Banks MD [address] [place] [address], [facility] [address] [place] [address] [facility] Neurology, A Department of [facility] Start: 03-29-2025 End: 03-29-2025 Patient encounter procedure [facility] Start: 03-17-2025 Adult BMI Screening Adult BMI Screen [facility] Start: 03-16-2025 End: 03-16-2026 US.doppler Extremity arteries - bilateral for physiologic artery study Vas art doppler lwr bilat mult lev/PVR Vascular Ultrasound Routine Encounter for abdominal aortic aneurysm (AAA) screening Open wound of left great toe, subsequent encounter Critical limb ischemia of left lower extremity with gangrene ([facility]) Expected: 03/16/2025, Expires: 03/16/2026 [facility] Work Phone: Comment on above: Expected: 03/16/2025 , Expires: 03/16/2026 Start: 03-16-2025 End: 03-16-2025 Patient encounter procedure [facility] Start: 03-14-2025 End: 03-14-2026 CT Head WO contrast CT brain without contrast Imaging Routine Cerebellar dysmetria Expected: 03/14/2025, Expires: 03/14/2026 [email or web address] Comment on above: Expected: 03/14/2025 , Expires: 03/14/2026 Start: 03-14-2025 End: 03-14-2026 RF videography Hypopharynx and Esophagus Views Fluoroscopy swallow motility function Imaging Routine Dysphagia, unspecified type Globus sensation Expected: 03/14/2025, Expires: 03/14/2026 [employer] Work Phone: Comment on above: Expected: 03/14/2025 , Expires: 03/14/2026 Start: 01-27-2025 Adult BMI Screening [facility] Start: 01-27-2025 Tobacco Screening [facility]ening [facility] Start: 01-27-2025 End: 07-29-2025 US.doppler Aorta and Iliac artery - bilateral Vas aorta/iliac duplex complete Vascular Ultrasound Routine Encounter for screening for abdominal aortic aneurysm (AAA) in patient 50 years of age or older with history of smoking Abdominal aortic aneurysm dissection ([facility]) Expected: 01/27/2025 (Approximate), Expires: 07/29/2025 [employer] Work Phone: Comment on above: Expected: 01/27/2025 (Approximate), Expires: 07/29/2025 Start: 01-23-2025 Diabetes screen Diabetes screen [facility] Start: 12-13-2024 Urine culture [facility] Start: 12-13-2024 Bacteria identified in Urine by Culture Urine Culture [facility] Start: 11-16-2024 Depression Screening Depression Scre ening [facility] [employer] [facility] Start: 11-16-2024 Tobacco Screening [facility]ening [facility] Start: 09-06-2024 End: 09-06-2024 Telemedicine consultation with patient 09/06/2024 12:30 PM EST Telemedicine [facility] [address] [place] [phone] Samira Bowden MD [address] [place] [address], [address], [address], [address] [place], [place] [id number] [facility] Start: 08-23-2024 End: 08-23-2024 Patient encounter procedure 08/23/2024 11:30 AM EST Office Visit [facility] [address] [place] [phone] Samira Bowden MD [address] [facility], [address], [address], [address] [place] [address] [facility] Start: 07-02-2024 Adult BMI Screening Adult BMI Screen ing [facility] Start: 07-02-2024 Tobacco Screening Tobacco Screening [facility] Start: 06-19-2024 COVID-19 Vaccine ( season) COVID-19 Vaccine () [facility] Start: 06-19-2024 COVID-19 Vaccine ( season) COVID-19 Vaccine () [facility] Start: 06-19-2024 Influenza vaccination Influenza Vacc ine [facility] Start: 04-26-2024 ambulatory Ambulatory Facility:[facility] Start: 03-17-2024 End: 03-17-2024 Patient encounter procedure 03/17/2024 11:30 AM EDT Office Visit [facility] [address] [place] [address] Heidy Marin MD [address], [address] [address] [facility] Start: 02-25-2024 End: 02-25-2024 Patient encounter procedure 02/25/2024 8:40 AM EDT Office Visit [facility] [address] [place] [address] Heidy Marin MD [address], [address] [address] [facility] Start: 02-11-2024 [facility] Start: 01-28-2024 End: 01-27-2025 US.doppler Extremity arteries - bilateral for physiologic artery study Vas art doppler lwr bilat mult lev/PVR Vascular Ultrasound Routine Critical limb ischemia of both lower extremities with gangrene ([facility]) Expected: 01/28/2024, Expires: 01/27/2025 [facility] Comment on above: Expected: 01/28/2024 , Expires: 01/27/2025 Start: 01-28-2024 End: 01-28-2024 Patient encounter procedure 01/28/2024 9:20 AM EDT Office Visit [facility] [address] [place] [address] Heidy Marin MD [address], [address] [address] [facility] Start: 01-14-2024 End: 01-14-2024 Patient encounter procedure 01/14/2024 9:50 AM EDT Office Visit [facility] [address] [place] [address] Sergio Anguiano MD [address], [address] [address] [facility] Start: 11-29-2023 Hepatitis B surface antibody level LDL CHOLESTEROL [facility] Start: 11-16-2023 End: 11-16-2023 Patient encounter procedure 11/16/2023 1:00 PM EST Office Visit [facility] [address] [place] [id number] Reena Cervantes, 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-SUPPORT MERCHANDISER [address] [place], [place] [id number] [facility] Start: 2023 Fall Risk Screening Fall Risk Screen ing [facility] Start: 2023 PNEUMOCOCCAL (3 - PP SV23 if available, else PCV20) PNEUMOCOCCAL (3 - PPSV23 if available, else PCV20) [facility] Start: 2023 PNEUMOCOCCAL (3 - PP SV23 or PCV20) PNEUMOCOCCAL (3 - PPSV23 or PCV20) [facility] Start: 2023 Pneumococcal 0-64 ye ars Vaccine (3 - PPSV23 or PCV20) Pneumococcal 0-64 years Vaccine (3 - PPSV23 or PCV20) [facility] Start: 08-11-2023 Adult BMI Follow Up Plan Adult BMI F ollow Up Plan [facility] Start: 08-11-2023 Depression Screening Depression Scre ening [facility] Start: 06-19-2023 COVID-19 Vaccine ( season) COVID-19 Vaccine ( season) [facility] Start: 06-19-2023 Influenza vaccination C [facility] Start: 10-19-2022 DEPRESSION ASSESSMENT DEPRESSION ASS ESSMENT [facility] Start: 01-01-2022 COVID-19 VACCINE (5 - Booster for Moderna series) COVID-19 VACCINE (5 - Booster for Moderna series) [facility] Start: 01-01-2022 COVID-19 VACCINE (6 - Moderna series) COVID-19 VACCINE (6 - Moderna series) [facility] Start: 10-25-2021 Adult depression screening assessment DEPRESSION SCREENING [facility] Start: 10-24-2021 FUV, Provider: Ren Watson, Status: Pen, Time: 10:10 AM FUV, Provider: Ren Watson, Status: Pen, Time: 10:10 AM [facility] [address] [place] Work Phone: Start: 09-05-2021 STRESS NUC, Provider : BRIGITTE SANTIZOI NUCLEAR ,[id number], Status: Pen, Time: 12:00 PM STRESS NUC, Provider: BRIGITTE HHVI NUCLEAR ,[id number], Status: Pen, Time: 12:00 PM [facility] [address] DO Work Phone: Start: 10-25-2020 Hemoglobin A1c/Hemoglobin.total in Blood HBA1C [facility] Start: 08-10-[address]AM 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 MARYAM DISEASE VISIT ANNUAL PCP TEAM CHRONIC DISEASE VISIT [facility] Start: 03-16-2019 Administration of varicella zoster vaccine Zoster (Shingles) Vaccine (2 of 2) [facility] Start: 03-16-2019 Shingles vaccine (2 of 2) Shingles vaccine (2 of 2) [facility] Start: 03-16-2019 SHINGRIX VACCINE (2 of 2) SHINGRIX VACCINE (2 of 2) [facility] Start: 04-27-2018 3 comp foot exam completed DIABETIC FOOT EXAM [facility] Start: 2013 Influenza vaccination LUNG CANCER [facility] Start: 2013 PROSTATE CANCER SCREENING DISCUSSION PROSTATE CANCER SCREENING DISCUSSION [facility] Start: 2008 Influenza vaccination LUNG CANCER [facility] Start: 2008 Screening for malign ant neoplasm of lung Low dose CT lung screening [facility] Start: 2003 COLOGUARD (FIT-DNA) COLOGUARD (FIT-D NA) [facility] Start: [address] COLONOGRAPHY [facility] Start: 2003 FECAL OCCULT BLOOD FECAL OCCULT BLOO D [facility] Start: 2003 Screening for malign ant neoplasm of colon [facility] Start: 2003 SIGMOIDOSCOPY SIGMOIDOSCOPY [facility] Start: 1988 Zoledronic acid therapy ALPHA- 1 ANTITRYPSIN DEFICIENCY SCREENING [facility] Start: 1976 Adult BMI Follow Up Plan Adult BMI F ollow Up Plan [facility] Start: 1976 BP CONTROLLED (<130/80) BP CONTROLLE D (<130/80) [facility] Start: 1976 Diabetic foot examination Diabetic Foot Exam [facility] Start: 1976 Hepatitis B surface antibody level LDL CHOLESTEROL [facility] Start: 1976 HEPATITIS C SCREENING HEPATITIS C [facility] Start: 1976 Hepatitis C screening Hepatitis C [facility] Start: 1976 HIV SCREENING HIV SCREENING [facility] Start: 1976 SPIROMETRY SPIROMETRY [facility] Start: 1973 HIV screening HIV screen [facility] Start: 1970 Depression Screen Depression Screen [facility] Start: 1968 Hepatitis B screening URINE AL BUMIN:CREATININE RATIO [facility] Start: 1968 Hepatitis C antibody , confirmatory test DILATED RETINAL EXAM [facility] Start: 1968 Lipid panel Lipids [facility] Start: 1958 Annual Wellness Visi t (AWV) Annual Wellness Visit (AWV) [facility] Start: 1958 Glaucoma screening Diabetic Op hthalmology Exam [employer] Start: 1958 Medicare Annual Well ness Visit Medicare Annual Wellness Visit [facility] Start: 1958 Statin Use: Cardiovascular Statin Use: Cardiovascular [facility] Start: 1958 Statin Use: Diabetic Statin Use: Melly betic [employer] Start: 1958 Tobacco Counseling Tobacco Counselin g [employer] Comprehensive metabo lic 2000 panel - Serum or Plasma [facility] CT Abdomen and Pelvi s W contrast IV [facility] End: 08-23-2025 EMG With NCV EMG With NCV Neurology Routine Spinal stenosis of lumbar region with neurogenic claudication 1 Occurrences starting 08/23/2024 until 08/23/2025 [employer] Work Phone: Comment on above: 1 Occurrences starti ng 08/23/2024 until 08/23/2025 Glucose [Mass/volume ] in Serum or Plasma [facility] [employer] Phone: Comment on above: 4X Daily (AC & HS) u ntil discontinued starting 02/11/2022, 27 completed As Needed until disc ontinued starting 02/11/2022 Glucose measurement estimated from glycated hemoglobin [facility] Hemoglobin A1c/Hemoglobin.total in Blood [facility] Home BIPAP or CPAP Home BIPAP or CPAP Respiratory Care Routine QHS until discontinued starting 02/16/2022 [employer] Phone: Comment on above: QHS until discontinu ed starting 02/16/2022 Oxygen therapy [[facility] Data Set] Initiate Oxygen Therapy Protocol Respiratory Care Routine As Needed until discontinued starting 02/07/2022 [employer] Phone: Comment on above: As Needed until disc ontinued starting 02/07/2022 Patient Education [facility] Work Phone: Patient referral [facility] Work Phone: [facility] Immunizations Immunization Date Immunization Notes Care Provider Titi naresh 11-21-2024 influenza, high dose seasonal, preservative-free Ellen Kuns DO Work Phone: [facility] 11-21-2024 influenza virus vaccine, unspecified formulation Lyn Banks MD Work Phone: [employer] 11-10-2023 influenza, high dose seasonal, preservative-free Ellen Kuns Other [facility] 11-10-2023 influenza virus vaccine, unspecified formulation [facility] 10-21-2022 pneumococcal conjuga te vaccine, 13 valent Fidel IBARRA [facility] 09-18-2022 influenza virus vaccine, unspecified formulation Fidel IBARRA [facility] 09-02-2022 influenza, injectabl e, quadrivalent, contains preservative Ellen Kuns Other [facility] 09-02-2022 influenza virus vaccine, unspecified formulation Fidel IBARRA [facility] 09-02-2022 influenza, injectabl e, quadrivalent, preservative free [facility] 11-06-2021 COVID-19, Moderna, 100mcg/0.5ml [facility] 10-15-2021 influenza virus vaccine, unspecified formulation Fidel IBARRA [facility] 10-15-2021 Influenza, injectabl e, Madin Lansing Canine Kidney, preservative free, quadrivalent Ellen R Kuns Work Phone: [facility] 10-15-2021 Moderna COVID-19 Vaccine 100 MCG/0.5ML Intramuscular Suspension Ellen R Kuns Work Phone: [facility] 01-30-2021 COVID-19, Moderna, 100mcg/0.5ml [facility] [employer] 01-09-2021 COVID-19 Vaccine Moderna - Documentation Purposes Only Ellen Kuns Other [facility] 01-02-2021 COVID-19, Moderna, 100mcg/0.5ml [employer] 12-13-2020 COVID-19 Vaccine Moderna - Documentation Purposes Only Ellen Kuns Other [facility] 07-17-2020 influenza virus vaccine, unspecified formulation Fidel IBARRA [facility] 07-17-2020 influenza, injectabl e, quadrivalent, contains preservative Ellen Kuns Other [facility] 07-17-2020 influenza, injectabl e, quadrivalent, preservative free [facility] 04-12-2020 Toradol per 15 mg Ellen Kuns Other [employer] Other 08-24-2019 influenza virus vaccine, unspecified formulation Fidel IBARRA [facility] 08-24-2019 influenza, high dose seasonal, preservative-free Ellen Kuns Other [facility] 01-19-2019 zoster vaccine recombinant Ellen Kuns Other [facility] 01-19-2019 zoster vaccine, unspecified formulation Samira Bowden MD Work Phone: [employer] 11-15-2018 pneumococcal conjuga te vaccine, 13 valent Phani Henderson MD Work Phone: [facility] 11-15-2018 tetanus toxoid, redu whitney diphtheria toxoid, and acellular pertussis vaccine, adsorbed Phani Henderson MD Work Phone: [facility] 07-07-2018 influenza virus vaccine, unspecified formulation Fidel IBARRA [facility] 07-07-2018 influenza, injectabl e, quadrivalent, contains preservative Ellen Kuns Other [facility] 07-07-2018 influenza, injectabl e, quadrivalent, preservative free [facility] 05-06-2018 Toradol per 15 mg Ellen Kuns Other [employer] Other 10-03-2017 Toradol per 15 mg Ellen Kuns Other [employer] Other 09-17-2017 Toradol per 15 mg Ellen Kuns Other [employer] Other 07-01-2017 influenza virus vaccine, unspecified formulation Fidelmunir IBARRA [facility] 07-01-2017 influenza, injectabl e, quadrivalent, preservative free Ellen R Kuns Work Phone: [facility] 03-24-2017 Toradol per 15 mg Ellen Kuns Other [employer] Other 01-29-2017 Toradol per 15 mg Ellen Kuns Other [employer] Other 12-25-2016 Toradol per 15 mg Ellen Kuns Other [employer] Other 08-12-2016 influenza virus vaccine, unspecified formulation Fidel IBARRA [facility] 08-12-2016 influenza, high dose seasonal, preservative-free Ellen R Kuns Work Phone: [facility] 08-12-2016 influenza, injectabl e, quadrivalent, preservative free [facility] 08-12-2016 Toradol per 15 mg Ellen Kuns Other [employer] Other 08-12-2016 influenza, injectabl e, quadrivalent, contains preservative Ellen Kuns Other [employer] Other 01-17-2016 Toradol per 15 mg Ellen Kuns Other [employer] Other 10-22-2015 tetanus toxoid, redu whitney diphtheria toxoid, and acellular pertussis vaccine, adsorbed Ellen Kuns Other [facility] 10-22-2015 Toradol per 15 mg Ellen Kuns Other [employer] Other 07-23-2015 influenza virus vaccine, unspecified formulation Fidel IBARRA [facility] 07-23-2015 influenza, injectabl e, quadrivalent, preservative free Ellen R Kuns Work Phone: [facility] 07-23-2015 influenza, injectabl e, quadrivalent, contains preservative Ellen Kuns Other [employer] Other 10-26-2014 influenza, injectabl e, quadrivalent, preservative free [facility] 10-26-2014 Toradol per 15 mg Ellen Kuns Other [employer] Other 10-26-2014 influenza, injectabl e, quadrivalent, contains preservative Ellen Kuns Other [employer] Other 07-11-2014 Toradol per 15 mg Ellen Kuns Other [employer] Other 06-27-2014 Toradol per 15 mg Ellen Kuns Other [employer] Other 04-20-2014 Toradol per 15 mg Ellen Kuns Other [employer] Other 01-18-2013 Toradol per 15 mg Ellen Kuns Other [employer] Other 09-15-2012 influenza virus vaccine, split virus (incl. purified surface antigen) Ellen Kuns Other [employer] Other 09-15-2012 influenza virus vaccine, unspecified formulation [facility] 07-15-2010 influenza virus vaccine, unspecified formulation Phani Henderson MD Work Phone: [facility] 08-24-2009 novel [id number], preservative-free, injectable Ellen R Kuns Work Phone: [facility] 08-16-2002 hepatitis B vaccine, adult dosage Ellen R Kuns Work Phone: [facility] 01-27-2002 hepatitis B vaccine, adult dosage Ellen R Kuns Work Phone: [facility] 08-13-1995 pneumococcal polysaccharide vaccine, 23 valent Ellen Kuns Other [facility] Payers Date Payer Category Payer Self-pay [id number] 2023 Commercial Indemnity [facility] [id number] 2023 Private Health Insurance [id number] 2023 Unknown [id number] 2021 Medicare AETNA MEDICARE A ETNA MEDICARE HMO [id number] 2021-Present [phone] [address] [place] [address] O [id number]. [id number] 2019 Medicare [id number]. 1.13.159.2. [id number] 2004 Unknown 1959 Medicare [id number] 2.16840.1.047623.3.441 1959 Medicare [id number] 1959 Unknown [id number] 1958 Unknown [id number] 2.16840.1.214780.3.579.2. 93 1958 Unknown [id number] 2.16.840.1.887284.3.579.2. 93 1958 Unknown [id number] 2.16.840.1.424977.3.579.2. 93 1958 Unknown [id number] 2.16.840.1.323485.3.579.2. 593 1958 Unknown [id number] 2.16.840.1.489540.3.579.2. 593 1958 Unknown [id number] 2.16.840.1.943062.3.579.2. 593 1958 Unknown [id number] 2.16.840.1.653397.3.579.2. 593 1958 Unknown [id number] 2.16.840.1.819943.3.579.2. 593 1958 Unknown [id number] 2.16.840.1.820534.3.579.2. 72 1958 Unknown [id number] 2.16.840.1.775252.3.579.2. 72 1958 Unknown [id number] 2.16.840.1.572108.3.579.2. 72 1958 Unknown [id number] 2.16.840.1.570176.3.579.2 72 1958 Unknown [id number] 2.16.840.1.679705.3.579.2. 72 1958 Unknown [id number] 2.16.840.1.230972.3.579.2 72 1958 Unknown [id number] 2.16.840.1.275203.3.579.2 72 1958 Unknown [id number] 2.16.840.1.346226.3.579.2. 72 1958 Unknown [id number] 2.16.840.1.534269.3.579.2 72 1958 Unknown [id number] 2.16.840.1.057212.3.579.2. 72 1958 Unknown [id number] 2.16.840.1.460454.3.579.2. 72 1958 Unknown [id number] 2.16.840.1.839138.3.579.2. 72 1958 Unknown [id number] 2.16.840.1.524052.3.579.2. 727 1958 Unknown [id number] 2.16.840.1.171071.3.579.2. 1958 Unknown [id number] 2.16.840.1.722297.3.579.2. 1958 Unknown [id number] 2.16.840.1.874632.3.579.2. 1958 Unknown [id number] 2.16.840.1.114374.3.579.2. 1958 Unknown [id number] 2.16.840.1.028609.3.579.2 1958 Unknown [id number] 2.16.840.1.838485.3.579.2 1958 Unknown [id number] 2.16.840.1.474809.3.579.2 1958 Unknown [id number] 2.16.840.1.431811.3.579.2 1958 Unknown [id number] 2.16.840.1.774713.3.579.2 1958 Unknown [id number] 2.16.840.1.652461.3.579.2 1958 Unknown [id number] 2.16.840.1.684577.3.579.2 1958 Unknown [id number] 2.16.840.1.726314.3.579.2. 1958 Unknown [id number] 2.16.840.1.182552.3.579.2 1958 Unknown [id number] 2.16.840.1.579501.3.579.2 1958 Unknown [id number] 2.16.840.1.871266.3.579.2 1958 Unknown [id number] 2.16.840.1.170019.3.579.2. 727 1958 Unknown [id number] 2.16.840.1.603278.3.579.2. 1958 Unknown [id number] 2.16.840.1.575434.3.579.2. 72 1958 Unknown [id number] 2.16.840.1.418898.3.579.2. 72 1958 Unknown [id number] 2.16.840.1.317923.3.579.2. 72 1958 Unknown [id number] 2.16.840.1.904463.3.579.2. 1958 Unknown [id number] 2.16.840.1.018025.3.579.2. 1958 Unknown [id number] 2.16.840.1.375141.3.579.2. 1958 Unknown [id number] 2.16.840.1.799464.3.579.2. 1958 Unknown [id number] 2.16.840.1.566409.3.579.2. 1958 Unknown [id number] 2.16.840.1.011924.3.579.2. 128 1958 Unknown [id number] 2.16.840.1.703792.3.579.2. 128 1958 Unknown [id number] 2.16.840.1.975582.3.579.2. 1285 1958 Unknown [id number] 2.16.840.1.429781.3.579.2. 128 1958 Unknown [id number] 2.16.840.1.605683.3.579.2. 128 1958 Unknown [id number] 2.16.840.1.434536.3.579.2. 727 1958 Unknown [id number] 2.16.840.1.760001.3.579.2. 727 1958 Unknown [id number] 2.16.840.1.095010.3.579.2. 727 1958 Unknown [id number] 2.16.840.1.784572.3.579.2. 727 1958 Unknown [id number] 2.16.840.1.509515.3.579.2. 727 1958 Unknown [id number] 2.16.840.1.660832.3.579.2. 72 1958 Unknown [id number] 2.16.840.1.766357.3.579.2. 727 1958 Unknown [id number] 2.16.840.1.491150.3.579.2. 727 1958 Unknown [id number] 2.16.840.1.636586.3.579.2. 72 Unknown [facility] [id number] Unknown [id number] 2.16.840.1.737297.3.579.2. 531 Unknown [id number] 2.16.840.1.205029.3.579.2. 531 Unknown [id number] 2.16.840.1.573389.3.579.2. 531 Unknown [id number] 2.16.840.1.647163.3.579.2. 531 Social History Date Type Detail Facility Start: 04-15-2017 End: 11-08-2020 No alcohol use No alcohol use [facility] Comment on above: Coffee 3 cups daily; 6 ciggs daily; Start: Smoker [facility] [employer] Start: 04-15-2017 End: 01-28-2024 Tobacco smoking status NHIS Smokes tobacco daily [facility] Start: 12-07-1982 History of tobacco use Cigarette Smo ker [facility] Start: 04-15-2017 End: 03-16-2025 Tobacco use and exposure Smokeless tobacco non-user [facility] Start: 05-29-2020 End: 10-10-2021 Alcohol intake Current non-drinker of alcohol (finding) [facility] Start: 05-04-2020 End: 11-25-2022 History SDOH Financial 4 [facility] Start: 05-04-2020 End: 11-25-2022 History SDOH Food Worry 1 [facility] Start: 05-04-2020 End: 11-25-2022 History SDOH Transport Med 2 [facility] Start: 06-21-2020 Tobacco Comment currently 8 ci garettes a day [facility] Start: 1960 Sex Assigned At Not on file C [facility] Start: 05-22-2020 End: 02-07-2022 Exposure to SARS-CoV-2 (event) Not sure [facility] Start: 02-09-2022 Alcohol intake Lifetime non-d margarita (finding) [employer] Phone: Start: 05-12-2019 End: 11-08-2020 Sex Assigned At [facility] Start: 01-16-2023 End: 09-27-2024 Tobacco smoking status Ex-smoker (finding) [facility] Tobacco smoking status Never [facility] How hard is it for y ou to pay for the very basics like food, housing, medical care, and heating Not very hard [facility] (I/We) worried heriberto amezquita (my/our) food would run out before (I/we) got money to buy more. Never true [facility] Start: 04-24-2020 Tobacco Comment currently 1/2 pack day since 01/2020 [facility] Start: 05-05-2020 End: 06-04-2020 Exposure to SARS-CoV-2 (event) Unable to assess [facility] Start: 1960 Sex Assigned At Male F [facility] History of tobacco use [facility] Start: 08-23-2024 End: 03-16-2025 Alcoholic beverage intake [facility] Start: 02-03-2021 End: 01-28-2024 Tobacco Comment 8 cigs per day [facility] Start: 01-30-2010 End: 11-08-2020 Sex Male (finding) [facility] Tobacco smoking stat us NHIS Tobacco smoking consumption unknown [facility] Sexual Orientation [facility] Medical Equipment Procedure Code Equipment Code Equipment Origin al Text Equipment Identifier Dates Restrictor 24mm Medium Boswell Cement Revision Plug Hip - [id number] Start: 04-27-2017 Cement Simplex P Tobramycin Bone Full Dose Radiopaque Preblend Sterile - [id number] Start: 04-27-2017 Restrictor 30mm Large Boswell Cement Revision Plug Hip - [id number] Start: 04-27-2017 Cement Simplex P Speedset Bone Radiopaque Sterile - [id number] Start: 12-29-2017 Xlu-Ee-I-Kind Implant - [id number] Start: 06-05-2016 Comment on above: Description: NEVRO C ORP. N300 LEAD ANCHOR KIT Head Global Unit e 52mm Standard 18mm Humeral - [id number] Start: 12-29-2017 Nevro Surgical L ead Kit [id number] Start: 03-16-2018 Head V40 28mm -2 .7mm Offset Taper Biolox Delta Femoral Hip - [id number] Start: 11-08-2019 Liner 46mm F Dylon r Acetabular Modular Dual Mobility Primary Hip - [id number] Start: 11-08-2019 Insert Adm Mobil e Bearing Hip Anglican 52mm 28mm 0d X3 8.9mm Acetabular - [id number] Start: 11-08-2019 Insert Adm Mobil e Bearing Hip Anglican 52mm 28mm 0d X3 8.9mm Acetabular - [id number] Start: 05-03-2020 Head V40 28mm +4 mm Offset Taper Biolox Delta Femoral Hip - [id number] Start: 05-03-2020 Liner 46mm F Dylon r Acetabular Modular Dual Mobility Primary Hip - [id number] Start: 05-03-2020 Stem Triathlon 1 2mm Cocr 100mm Femoral Cemented Total Stabilized Knee - [id number] Start: 04-27-2017 Stem Triathlon 1 5mm Cocr 50mm Femoral Cemented Total Stabilize Knee - [id number] Start: 04-27-2017 Component Triath lisy 7 Cocr Femoral Total Stabilize Knee Left - [id number] Start: 04-27-2017 Augment Triathlo n 7 5mm Femoral Total Stabilize Knee Posterior - [id number] Start: 04-27-2017 Augment Triathlo n 7 5mm Femoral Total Stabilize Knee Left - [id number] Start: 04-27-2017 Augment Triathlo n 7 5mm Femoral Total Stabilize Knee Left - [id number] Start: 04-27-2017 Augment Triathlo n 6 10mm Tibial Total Stabilize Right Medial Left Lateral - [id number] Start: 04-27-2017 Baseplate Triath lisy 6 Boswell Cocr Tibial Total Stabilize Cemented Knee - [id number] Start: 04-27-2017 Augment Triathlo n 6 10mm Tibial Total Stabilize Left Medial Right Lateral - [id number] Start: 04-27-2017 Insert Triathlon 6 X3 16mm Tibial Total Stabilize Plus Knee - [id number] Start: 04-27-2017 Component Triath lisy 7 Pa Femoral Cruciate Retain Bead Knee Right - [id number] Start: 07-01-2017 Insert Triathlon 6 X3 13mm Tibial Condylar Stabilized Knee - [id number] Start: 07-01-2017 Baseplate Triath lisy 6 Tritanium [id number] Tibial 4 Cruciform Peg Keel Knee - [id number] Start: 07-01-2017 Component Tritan ium 35mm Metal 10mm Patellar Asymmetric Knee - [id number] Start: 07-01-2017 Component Triath lisy 35mm 10mm Patellar Asymmetric Knee - [id number] Start: 04-27-2017 Head 48mm 7mm Humeral Chickasha Peg Left Glenoid - [id number] Start: 12-29-2017 Stem Global Ap 1 2mm Porocoat 137mm Humeral Arthroplasty System Shoulder - [id number] Start: 12-29-2017 Assembly Global Ap 135d Taper Fix Shoulder Arthroplasty System - [id number] Start: 12-29-2017 Augment Triath T ib Cone Sz A - [id number] Start: 04-27-2017 Stem Accolade Ii 7 127d Femoral - [id number] Start: 11-08-2019 Shell Trident Ii 56mm F Tritanium Acetabular 5 Screw Hole Cluster Sterile - [id number] Start: 11-08-2019 Stem Accolade Ii 7 127d Femoral - [id number] Start: 05-03-2020 Shell Trident Ii 56mm F Tritanium Acetabular 5 Screw Hole Cluster Sterile - [id number] Start: 05-03-2020 Lead 50cm Nevro - [id number] Start: 05-08-2016 Comment on above: Description: 50 Lead 50cm Nevro - [id number] Start: 06-05-2016 Comment on above: Description: NEVRO B LUE PERC LEAD KIT Lead 50cm Nevro - [id number] Start: 06-05-2016 Comment on above: Description: NEVRO B LUE PERC LEAD KIT Gnrtr Nrstm Ipg Kit Nevro - [id number] Start: 06-05-2016 Comment on above: Description: NEVRO N IPG KIT Screw Spinal Streamline 7.5x55mm - [id number] Start: 02-07-2022 Set Scr Spnl Ti Streamline - [id number] Start: 02-07-2022 Screw Spnl L45mm Dia7.5mm Thorlum Ti Ally Polyax Streamline - [id number] Start: 02-07-2022 Screw Spnl L50mm Dia7.5mm Thorlum Ti Ally Polyax Streamline - [id number] Start: 02-07-2022 Ta Spnl L120mm [id number] Thorlum Prebent Streamline - [id number] Start: 02-07-2022 Ta Spnl L100mm [id number] Thorlum Prebent Streamline - [id number] Start: 02-07-2022 Syringe With Nee dle [...] 09-27-2024 Functional Status N/A [facility] [place] 03-15-2024 Functional Status N/A [facility] [place] 03-20-2023 Functional Status N/A [facility] [place] 02-20-2023 Functional Status N/A [facility] [place] 01-30-2023 Functional Status N/A [facility] [place] Clinical Notes 06-07-2012 to 06-12-2025 Telephone Encounter - Eliane Ken - 06/06/2025 9:37 AM EDTTelephone Encounter - Sal Frances - 06/06/2025 9:37 AM EDTTelephone Encounter - Eliane Ken - 06/06/2025 9:37 AM EDT Note Date & Type Note Facility 06-12-2025 Note SUBJECTIVE Reason for Visit: Alisia Correa is a 64 y.o. year old adult patient being seen for status post pacemaker implant, wound check. HPI: Alisia Correa is a 64 y.o. year old adult with significant medical history of Parkinson's disease, neurogenic orthostatic hypotension, diabetes, neuropathy, hypertension, COPD, and PVD. History of sinus pause status post pacemaker implant 06/05/[address] Lim. He is a patient of Dr. Espinoza / C[facility]lle Botello. 06/12/2025 office visit: Patient was seen and evaluated in the office today following pacemaker implant, wound check. Denies chest pain, shortness of breath, palpitations, lightheaded dizziness, or lower extremity edema. Left chest site intact, no oozing, erythema, hematoma. Patient denies fevers chills. 04/25/2025 office visit (Dr. Lim): HPI: Alisia Correa is a 64 y.o. year old with past medical history of Parkinson disease, diabetes mellitus type 2 with associated diabetic neuropathy, hypertension, COPD, peripheral vascular disease who has been known to have orthostatic hypotension with evident blood pressure drops who was previously treated with midodrine and subsequently pyridostigmine was added on. He has followed up with the family physician at [place] and subsequently for his autonomic hypotension and issues he has had a follow-up with Cherelle Botello, She had ordered an event monitor which showed evidence of pauses of 3 seconds noted on 04/12/2025 at 10:30 AM Medical History[1] Surgical History[2] Problem List[3] family history includes Asthma in Alisia's mother; Cancer in Alisia's brother; Depression in Alisia's mother; Diabetes type II in Alisia's father; Heart attack in Alisia's maternal grandfather and mother's brother; Hypertension in Alisia's father and mother; Hypotension in Alisia's mother; Kidney disease in Alisia's mother. Social History[4] OBJECTIVE Visit Vitals Smoking [...] Rate 06/05/2025 63 Atrial Rate 06/05/2025 63 NM Interval 06/05/2025 164 QRS DURATION 06/05/2025 90 QT Interval 06/05/2025 440 QTC CALCULATION(BAZETT) 06/05/2025 450 P Billingsley 06/05/2025 -4 R-Billingsley 06/05/2025 -31 T Wave Billingsley 06/05/2025 30 Ventricular Rate 06/05/2025 80 Atrial Rate 06/05/2025 80 NM Interval 06/05/2025 124 QRS DURATION 06/05/2025 116 QT Interval 06/05/2025 428 QTC CALCULATION(BAZETT) 08 (more content not included)... [facility] 06-06-2025 Miscellaneous Notes Received referral from Dr. Banks for patient to see Dr. Martin for : Chronic intractable headache, unspecified headache type Please call to schedule -established with new patient time Patient scheduled: 09/12/25 11:[address] Martin documented [facility] this encounter [email or web address] Telephone encounter Note Received referral from Dr. Banks for patient to see Dr. Martin for : Chronic intractable headache, unspecified headache type Please call to schedule -established with new patient time [facility] 06-06-2025 Telephone encounter Note Patient scheduled: 09/12/25 11:[address] Martin [employer] [facility] 06-05-2025 Note DUAL CHAMBER PACEMAK ER IMPLANT PROCEDURE NOTE DATE OF PROCEDURE: 06/05/25 PERFORMING PHYSICIAN: Dr. Lora Lim CONSENT: Patient LOCATION: EP lab PROCEDURE [...] using modified seldinger technique using a 5 Faroese micro-puncture needle on two occasions and 0.35 [...] for the device above the muscle. 6/9 Faroese Safesheaths were placed over the wire. An active fixation Biotronik pacing lead was then delivered through the 9Fsheath and Selectra IIID-65/42 sheath to the right ventricle. After confirmation of lead position on orthogonal views (BROOKS and ROD) to confirm septal position, the screw was [...] lead position on orthogonal views (BROOKS and ROD), the screw was activated. Good sensing parameters, injury pattern and pacing thresholds, the lead was then tested usingLambert's maneuver. 10V pacing was done and no [...] from discharge or sooner for any concerns. 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 Use of blood products discussed with patient who. Additional Equipment Requests [facility] 04-25-2025 Note [place] Electrophysiology Consult Note [place] Cardiology - [facility] Reason for visit: Syncope HPI: Alisia [...] on. He has followed up with the family physician at [place] and subsequently for his autonomic hypotension and [...] Resource Strain: Low Risk (11/25/2022) Received from [facility] Overall Financial Resource Strain (CARDIA) Difficulty of Paying Living Expenses: Not very hard Food Insecurity: No Food Insecurity (03/16/2025) Received from [employer] Hunger Screening Within the past 12 months we worried whether our food would run out before we got money to buy more.: Never True Within the past 12 months the food we bought just didn't last and we didn't have money to get more.: Never True Transportation Needs: No Transportation Needs (11/25/2022) Received from [facility] PRAPARE - Transportation Lack of Transportation [...] Housing Stability: Low Risk (11/25/2022) Received from [facility] Housing Stability Vital Sign Unable to [...] over the incision (more content not included)... [facility] 04-05-2025 Note Alisia Correa is a [age]-year-old gentleman referred to Dr Edgar Espinoza and the Syncope and Autonomic Disorders Clinic in the Heart and Vascular Center at the [facility] for an evaluation of neurogenic orthostatic hypotension (nOH) secondary to Parkinson's disease. Referral from neurologist Dr. Samira Bowden, Parkinson's specialist. Past medical history significant for type 2 diabetes (20 years, non insulin dependent), severe diabetic neuropathy feet and hands, essential hypertension (20 years) COPD (previous tobacco 40 years), PVD (vascular surgery [facility]). Chief Complaint: Telemedicine visit. Patient located in [place], [place]. On with . HPI: Orthostatic hypotension frequent falls. Onset: 2008. 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 Review of Systems Cardiovascular: Positive for near-syncope [...] can increase stand (more content not included)... [facility] 04-04-2025 Miscellaneous Notes Refill request : traMADoL (ULTRAM) 50 mg tablet Last Filled : 09/30/2024 Last OV : 03/14/2025 Next OV : 04/25/2025 Reviewed by IN HOME BABY SITTER. Pend for signature. Optical Assistant phoned in medication to pharmacy. Patient notified. documented in this encounter [facility] 04-04-2025 Telephone encounter Note Refill request : traMADoL (ULTRAM) 50 mg tablet Last Filled : 09/30/2024 Last OV : 03/14/2025 Next OV : 04/25/2025 Reviewed by IN HOME BABY SITTER. Pend for signature. [facility] 04-04-2025 Telephone encounter Note Optical Assistant phoned in medication to pharmacy. Patient notified. [facility] 03-16-2025 Evaluation + Plan note Associated Problem(s): Open wound of left great toe PVR with toe pressure [facility] 03-16-2025 Evaluation + Plan note Associated Problem(s): Encounter for abdominal aortic aneurysm (AAA) screening No abdominal aortic aneurysms on screening duplex ultrasound. [facility] 03-16-2025 Miscellaneous Notes Associated Problem(s): Open wound of left great toe PVR with toe pressure Associated Problem(s): Encounter for abdominal aortic aneurysm (AAA) screening No abdominal aortic aneurysms on screening duplex ultrasound. documented in this encounter [facility] 03-16-2025 History of Present illness Narrative Images [...] Past Medical History: Diagnosis Date Diabetes mellitus ([facility]) Diabetes mellitus type 2, controlled ([facility]) HL (hearing loss) Hypertension Kidney stones Migraine Parkinson's disease ([facility]) Spinal stenosis Past Surgical History: Past Surgical [...] Resource Strain: Low Risk (11/25/2022) Received from [facility] Overall Financial Resource Strain (CARDIA) Difficulty of Paying Living Expenses: Not very hard Food Insecurity: No Food Insecurity (03/16/2025) Hunger Screening Food Insecurity - Worry: Never True Food Insecurity - Inability: Never True Transportation Needs: No Transportation Needs (11/25/2022) Received from [facility] PRAPARE - Transportation Lack of Transportation (Medical): No Lack of Transportation (Non-Medical): No Physical Activity: Not on file Stress: Not on file Social Connections: Not on file Interpersonal Safety: Not on file Housing Instability: Low Risk (11/25/2022) Received from [facility] Housing Stability Vital Sign Unable to [...] Heidy Marin MD, TESSIE, RPVI, FSVS, FACS [facility] [employer] [facility] This note was created with the assistance of a speech recognition program. While intending to generate a timely document that accurately reflects the content of the visit, no guarantee can be provided that every grammatical or spelling mistake has been or will be identified or corrected. Thank you for your understanding. documented in this encounter [facility] 03-14-2025 History of Present illness Narrative Images from the original note were not included. [address] [facility] [address] Patient: Alisia Correa Sr. Date of : [...] 14 2 PTSD: No data to display [place]: No data to display TONIA-10: No data to display Past Medical, Family, Surgical, and Social History Update: The following portions of the patient's history were reviewed and updated as appropriate: allergies, current medications, past family history, past medical history, past social history, past surgical history and problem list. Past Medical History: Diagnosis Date Diabetes mellitus ([facility]) Diabetes mellitus type 2, controlled ([facility]) HL (hearing loss) Hypertension Kidney stones Migraine Parkinson's disease ([facility]) Spinal stenosis No family history on file. [...] procedures Referring and communicating with other health animal care technician (not separately reported) Documenting clinical information in [...] for your understanding. documented in this encounter [employer] 03-14-2025 Instructions Lyn Banks MD - 03/14/2025 3:00 PM EDT Wear thigh high compression socks 20mmHg during the day, remove for bed time. Swallow study. Call to schedule appointment with Dr. Espinoza at [facility] (dysautonomia specialist). Magnesium citrate solution- drink 1 [...] 6pm. CT head documented in this encounter [facility] 02-15-2025 Radiology Diagnostic study note [facility] Main [place] [address] [place] [address] CT Scan Report Signed Patient: Alisia Correa SR MR#: [id number] : 1960 Acct:[id number] Age/Sex: 64 / M ADM Date: 5 Loc: CT Room: Type: [facility] Attending Dr: Romel Leonardo MD Copies to: [...] excluded. Impression dictated by: Steven Shah Jr., DAlejandroOAlejandro 02/15/2025 3:42 PM Dictation Location: [facility]--22 Transcribed By: [facility] 02/15/25 1542 Dictated By: Steven Shah Jr, DO 02/15/25 1538 Signed By: 02/15/25 1542 [facility] 12-29-2024 Evaluation note Diagnosis Onset Date Resolution Depression acute December 29 1:14pm Diabetes acute December 29 1:14pm Migraine acute December 29 1:14pm Parkinsons acute December 29 1:14pm Sleep apnea acute December 29, 1:14pm Suprapubic catheter acute December 29, 2024 1:14pm Chronic suprapubic catheter acute January 30, 2025 1:55pm Parkinsons acute January 30 1:55pm Recurrent UTI acute January 30, 2025 1:55pm [facility] Work Phone: [phone]) 281-968503-11-2025 NotePatient Education Obstetrics and Gynecology Urinary Tract [...] this condition includes: ??? Antibiotic medicine. ??? Fxda-nao-hzvwmjb medicines to treat discomfort. ??? Drinking enough [...] these instructions at home: Medicines ??? Take lehs-dgi-bvtthxa and prescription medicines only as told by [...] Make sure you di (more content not included)...[facility] [place] [facility]02-10-2025 Hospital Discharge instructions Patient Education 11/28/2024 16:00:59 [...] provider. Document Revised: 05/05/2023 Document Reviewed: 05/05/2023 [employer] Patient Education 2023 [employer]. Follow Up Care 11/25/2024 08:07:08 With:RODRI KHAN, LYN Crum, URL Address: [address] [facility] [place] [address] When:Within 1 Month(s) [facility] [place] 02-10-2025 NotePatient Education Caregiving Antibiotic Medicine, Adult [...] ??? You have sig (more content not included)...[facility] [place] [facility] 11-23-2024 Miscellaneous Notes* Telephone Encounter - Susie Andino RN - 11/23/2024 2:04 PM EST Contacted pt because last script was sent to pharmacy with 11 refills. Pt stated that the pharmacy didn't have any refills left. Contacted pharmacy and they stated that they did have refills left andwill fill the medication for pt. [facility] Telephone encounter Note* Telephone Encounter - Susie Andino RN - 11/23/2024 2:04 PM EST Contacted pt because last script was sent to pharmacy with 11 refills. Pt stated that the pharmacy didn't have any refills left. Contacted pharmacy and they stated that they did have refills left andwill fill the medication for pt. [facility] [employer] [id number] Miscellaneous Notes* Telephone Encounter - Julianna Barnes - 11/19/2024 3:03 PM EST Refill request : carbidopa-levodopa (SINEMET CR) 25-100 mg per CR tablet Last Filled : 08/31/2024 240 tablets +11 refills Refill too soon. Refills remaining at the pharmacy. [facility] Telephone encounter Note* Telephone Encounter - Julianna Barnes - 11/19/2024 3:03 PM EST Refill request : carbidopa-levodopa (SINEMET CR) 25-100 mg per CR tablet Last Filled : 08/31/2024 240 tablets +11 refills Refill too soon. Refills remaining at the pharmacy. [facility] [employer] [id number] Miscellaneous Notes* Telephone Encounter - Susie Andino RN - 10/24/2024 2:28 PM EST Verified with pharmacy that they received the midodrine script. Pharmacy is working on filling the medication. [facility] Telephone encounter Note* Telephone Encounter - Susie Andino RN - 10/24/2024 2:28 PM EST Verified with pharmacy that they received the midodrine script. Pharmacy is working on filling the medication. [facility]12-10-2024 Hospital Discharge instructions Patient Education 09/27/2024 12:03:21 [...] provider. Document Revised: 12/25/2021 Document Reviewed: 09/20/2021 480 Biomedical Patient Education 2021 [employer]. Follow Up Care 08/30/2024 12:29:01 With:LYN MACE PA-C, URL Address: [address] [place] [address] When:Within 1 Month(s) [facility] [place] 12-10-2024 NotePatient Education Urology Indwelling Urinary Catheter [...] provider. Document Revised: 12/25/2021 Document Reviewed: 09/20/2021 Elsevier Patient Education ? 2021 [employer] [place] [facility] 09-26-2024 Miscellaneous Notes* Telephone Encounter - Susie Andino RN - 09/26/2024 2:18 PM EST medication: midodrine (PROAMATINE) 5 mg tablet Last filled: 12/11/23 Last seen: 08/23/24 Next visit: Not scheduled Reviewed by RN. Pended for signature. According to office note from 08/23/24 Midodrine (Patient not taking: Reported on 08/23/2024) Please advise. documented [facility] Telephone encounter Note* Telephone Encounter - Susie Andino RN - 09/26/2024 2:18 PM EST medication: midodrine (PROAMATINE) 5 mg tablet Last filled: 12/11/23 Last seen: 08/23/24 Next visit: Not scheduled Reviewed by RN. Pended for signature. According to office note from 08/23/24 Midodrine (Patient not taking: Reported on 08/23/2024) Please advise. [facility]12-08-2024 Miscellaneous Notes* Telephone Encounter - Susie Andino RN - 09/25/2024 4:07 PM EST medication: sumatriptan (IMITREX) 50 mg tablet Last filled: 05/25/24 Last seen: 08/23/24 Next visit: not scheduled Reviewed by RN. Pended for signature. documented in this encounterHigh[facility]12-[facility]-2024 Miscellaneous Notes* Telephone Encounter - Susie Andino RN - 09/25/2024 4:07 PM EST medication: tramadol 50 mg tablet Last filled: 08/03/24 Last seen: 08/23/24 Next visit: not scheduled Reviewed by RN. Pended for signature. documented in [facility]High[facility]12-[facility]24 Telephone encounter Note* Telephone Encounter - Susie Andino RN - 09/25/2024 4:07 PM EST medication: sumatriptan (IMITREX) 50 mg tablet Last filled: 05/25/24 Last seen: 08/23/24 Next visit: not scheduled Reviewed by RN. Pended for signature. [facility] Telephone encounter Note* Telephone Encounter - Susie Andino RN - 09/25/2024 4:07 PM EST medication: tramadol 50 mg tablet Last filled: 08/03/24 Last seen: 08/23/24 Next visit: not scheduled Reviewed by RN. Pended for signature. [facility]11-11-2024 Miscellaneous Notes* Telephone Encounter - Susie Andino RN - 08/29/2024 3:42 PM EST medication: Carbidopa-levodopa (SINEMET CR) 25-100 mg per CR tablet Last filled: 08/07/23 Last seen: 08/23/24 Next visit: 09/06/24 Reviewed by RN. Pended for signature. documented in this encounterHigh[facility]11-[facility]-2024 Telephone encounter Note* Telephone Encounter - Susie Andino RN - 08/29/2024 3:42 PM EST medication: Carbidopa-levodopa (SINEMET CR) 25-100 mg per CR tablet Last filled: 08/07/23 Last seen: 08/23/24 Next visit: 09/06/24 Reviewed by RN. Pended for signature. [facility]11-05-[facility] History of Present illness Narrative* Wilber Tipton MD - 08/23/2024 11:30 AM EST Images from the original note were not included. [address] [facility] [address] Patient: Alisia Correa Sr. Date of : [...] 14 2 PTSD: No data to display [place]: No data to display TONIA-10: No data to display Past Medical, Family, Surgical, and Social History Update: The following portions of the patient's history were reviewed and updated as appropriate: allergies, current medications, past family history, past medical history, past social history, past surgicalhistory and problem list. Past Medical History: Diagnosis Date Diabetes mellitus ([facility]) Diabetes mellitus type 2, controlled ([facility]) HL (hearing loss) Hypertension Kidney stones Migraine Parkinson's disease ([facility]) Spinal stenosis No family history on file. [...] DOSE. TAKE ALONG WITH SINEMET CR. 180 [id number] diclofenac (VOLTAREN) 75 mg EC tablet Take [...] Plan of Care: none documented in this encounterHigh[facility]10-[facility]24 Hospital Discharge instructions Follow Up Care 08/09/2024 15:03:40 With:RODRI KHAN, LYN Crum, URL Address: [address] [place] [address] When: Unknown [facility] [place] 10-13-2024 Miscellaneous Notes* Telephone Encounter - Susie Andino RN - 07/31/2024 1:31 PM EDT Refill request : tramadol 50mg Last Filled : 04/13/24 Last Office Visit :11/16/23 Next Office Visit : 08/23/24 Reviewed by RN. Pend for signature. * Telephone Encounter - REGAN Morales - 07/31/2024 1:31 PM EDT Pt is schedule for follow up with Dr Bowden in August. Sending to him for approval and signature documented in this encounterHigh[facility]10-13-2024 Telephone encounter Note* Telephone Encounter - Susie Andino RN - 07/31/2024 1:31 PM EDT Refill request : tramadol 50mg Last Filled : 04/13/24 Last Office Visit :11/16/23 Next Office Visit : 08/23/24 Reviewed by RN. Pend for signature. [facility] Telephone encounter Note* Telephone Encounter - REGAN Morales - 07/31/2024 1:31 PM EDT Pt is schedule for follow up with Dr Bowden in August. Sending to him for approval and signature [facility] [employer] [id number] Miscellaneous Notes* Telephone Encounter - Rachel Mixon CMA - 07/14/2024 1:37 PM EDT Refill request: Med: fludrocortisone (FLORINEF) 0.1 mg tablet Si tabs daily as directed Last seen:11/16/23 With Kathy Cervantes Next visit:08/23/[address] Bowden Last filled: 02/23/23 day supply with 3 refills to [facility] Pharmacy[facility] documented in this encounterHigh[facility]09-26-[facility]24 Telephone encounter Note* Telephone Encounter - Rachel Mixon CMA - 07/14/2024 1:37 PM EDT Refill request: Med: fludrocortisone (FLORINEF) 0.1 mg tablet Si tabs daily as directed Last seen:11/16/23 With Kathy Cervantes Next visit:08/23/[address] Bowden Last filled: 02/23/23 day supply with 3 refills to [facility] Pharmacy: [facility]08-[facility] Miscellaneous Notes* Telephone Encounter - Julianna Barnes - 05/24/2024 4:47 PM EDT Refill request : SUMAtriptan (IMITREX) 50 mg tablet Last Filled : 02/23/2024 Last OV : 11/16/2023 Next OV : 08/23/2024 Reviewed by ANDRE. Pend for signature. documented in this encounterHighland [facility] Hospital08-06-2024 Telephone encounter Note* Telephone Encounter - Julianna Barnes - 05/24/2024 4:47 PM EDT Refill request : SUMAtriptan (IMITREX) 50 mg tablet Last Filled : 02/23/2024 Last OV : 11/16/2023 Next OV : 08/23/2024 Reviewed by IN HOME BABY SITTER. Pend for signature. [facility]06-24-2024 Miscellaneous Notes* Telephone Encounter - Julianna Barnes - 04/11/2024 11:33 AM EDT Refill request : tramadol (Ultram) 50 mg tablet Last Filled : 11/16/2023 Last OV : 11/16/2023 Next OV : None mentioned in last OV note. The OARRS database was reviewed today and found to be appropriate. No indication of medication diversion, or non compliance. Reviewed by [employer]Y [employer]IT[employer]. Pend for signature. * Telephone Encounter - Rosa Neil - 04/11/2024 11:33 AM EDT Patient is scheduled for the following appointment: With Neurology (Samira Bowden MD) 08/23/2024 at 11:30 AM documented in this encounterThe [facility] [employer]With[employer] [id number] Telephone encounter Note* Telephone Encounter - Julianna Barnes - 04/11/2024 11:33 AM EDT Refill request : tramadol (Ultram) 50 mg tablet Last Filled : 11/16/2023 Last OV : 11/16/2023 Next OV : None mentioned in last OV note. The OARRS database was reviewed today and found to be appropriate. No indication of medication diversion, or non compliance. Reviewed by IN HOME [employer]ABY SITTER. Pend for signature. [facility] [employer] [id number] Telephone encounter Note* Telephone Encounter - Rosa Neil - 04/11/2024 11:33 AM EDT Patient is scheduled for the following appointment: With Neurology (Samira Bowden MD) 08/23/2024 at 11:30 AM [facility]06-10-2024 Miscellaneous Notes* Telephone Encounter - Rachel Mixon CMA - 03/28/2024 3:59 PM EDT [facility] Placed in provider's folder for signature. Optical Assistant will return fax upon completion. documented in this encounterHighland District Hospital06-10-2024 Telephone encounter Note* Telephone Encounter - Rachel Mixon CMA - 03/28/2024 3:59 PM EDT [facility]. Placed in provider's folder for signature. Optical Assistant will return fax upon completion. 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 He has some small vessel disease with mild to moderately reduced TBI Mostly on the left.Discussed with him that his wound should heal.He might need hyperbaric therapy to help accelerate the healing.Also recommended continue best medical therapy [facility]05-30-2024 Miscellaneous Notes* Assessment & Plan Note - [...] continue best medical therapy documented in this encounterUC Medical CenterEthical Ocean [facility] Medical [id number] History of Present illness Narrative* Heidy Marin MD - 03/17/2024 11:30 AM EDT [...] DOSE. TAKE ALONG WITH SINEMET CR. 180 diclofenac (VOLTAREN) 75 mg EC tablet Take [...] Past Medical History: Diagnosis Date Diabetes mellitus ([facility]) Diabetes mellitus type 2, controlled ([facility]) HL (hearing loss) Hypertension Kidney stones Migraine Parkinson's disease ([facility]) Spinal stenosis Past Surgical History: Past Surgical [...] Resource Strain: Low Risk (11/25/2022) [facility] Financial Resource Strain (CARDIA) Difficulty of Paying Living Expenses: Not very hard Food Insecurity: No Food Insecurity (01/28/2024) Hunger Screening Food Insecurity - Worry: Never True Food Insecurity - Inability: Never True Transportation Needs: No Transportation Needs (11/25/2022) [facility] PRAPARE - Transportation Lack of Transportation (Medical): No Lack of Transportation (Non-Medical): No Physical Activity: Not on file Stress: Not on file Social Connections: Not on file Interpersonal Safety: Not on file Housing Instability: Low Risk (11/25/2022) [facility] Housing Stability Vital Sign Unable to [...] you for your understanding. documented in this encounterHighland District Hospital05-28-2024 Hospital Discharge instructions Patient Education 03/15/2024 13:28:21 [...] include: ?8 oz (237 mL) of milk, pnpmpnr-usfgyogzmqwl-hagrx milk, and calcium- fortifiedfruit juice. Calcium-fortified means [...] ?Spinach (cooked), rhubarb, beets, sweet potatoes, and Filipino chard. ?Peanuts. ?Potato chips, ethiopian fries, and baked potatoes with skin on. ?Nuts and nut products. ?Chocolate. If you regularly take a diuretic medicine, make sure to eat at least 1 or 2 servings of fruits or vegetables that are high in potassium each day. These include: ?Avocado. ?Banana. ?Mineral, prune, carrot, or tomato juice. ?Baked potato. [...] magnesium, fish oil, or vitamin B6. Take hkix-akg-uepifwk and prescription medicines only as told by [...] Casseroles. Pizza. Lasagna. Frozen meals. Potato chips. Faroese fries. The items listed above may not [...] provider. Document Revised: 01/15/2023 Document Reviewed: 01/15/2023 480 Biomedical Patient Education 2022 [employer]. 03/15/2024 13:28:17 Antibiotic Medicine, Adult Antibiotic Medicine, [...] medicine. Follow these instructions at home: Take dqxc-dze-awiwguv and prescription medicines as told by your [...] provider. Document Revised: 11/19/2020 Document Reviewed: 07/24/2020 480 Biomedical Patient Education 2022 [employer]. 03/15/2024 13:27:57 Kidney Stones, Lowo-jl-Ukuo Kidney Stones Kidney stones are rock-like masses [...] Follow these instructions at home: Medicines Take tgxl-ran-wfhkybh and prescription medicines only as told by [...] Kidney Foundation (NKF): www.kidney.org Urology Care Foundation (F): www.urologyhealth.org Contact a doctor if: You have [...] provider. Document Revised: 06/09/2022 Document Reviewed: 06/09/2022 480 Biomedical Patient Education 2022 [employer]. 03/15/2024 13:27:55 Benign Prostatic Hyperplasia Benign Prostatic [...] urethra. Follow these instructions at home: Take ykjn-wde-eccuwuy and prescription medicines only as told by [...] provider. Document Revised: 04/23/2022 Document Reviewed: 04/23/2022 480 Biomedical Patient Education 2022 [employer]. [facility] 05-09-2024 Miscellaneous Notes* Telephone Encounter - Rachel Mixon CMA - 02/25/2024 8:54 AM EDT Received DERMATOLOGY PHYSICIAN ASSISTANT Progress note from [facility] dated 02/25/24. Will have provider review andsign. Will return fax. documented in this encounterHighland District Hospital05-09-2024 Telephone encounter Note* Telephone Encounter - Rachel Mixon CMA - 02/25/2024 8:54 AM EDT Received [facility]MATOLOGY PHYSICIAN [facility] Will have provider review andsign. Will return fax. [facility]05-06-2024 Miscellaneous Notes* Telephone Encounter - Julianna Barnes - 02/22/2024 4:55 PM EDT Refill request : SUMAtriptan (IMITREX) 50 mg tablet Last filled : 02/15/2024 Printed not signed by ordering provider Last OV : 11/16/2023 Next OV : None mentioned in last OV note. Reviewed by IN HOME BABY SITTER. Pend for signature. documented in this encounterHighland District Hospital05-06-2024 Telephone encounter Note* Telephone Encounter - Julianna Barnes - 02/22/2024 4:55 PM EDT Refill request : SUMAtriptan (IMITREX) 50 mg tablet Last filled : 02/15/2024 Printed not signed by ordering provider Last OV : 11/16/2023 Next OV : None mentioned in last OV note. Reviewed by IN HOME BABY SITTER. Pend for signature. [facility]05-02-2024 Miscellaneous Notes* Telephone Encounter - Rachel Mixon CMA - 02/18/2024 4:03 PM EDT Received DERMATOLOGY PHYSICIAN ASSISTANT [facility] Will have provider review and sign. Will return fax. documented in this encounterHighland District Hospital05-02-2024 Telephone encounter Note* Telephone Encounter - Rachel Mixon CMA - 02/18/2024 4:03 PM EDT Received DERMATOLOGY PHYSICIAN ASSISTANT Progress note from [facility] dated 02/08/24. Will have provider review and sign. Will return fax. [facility]04-29-2024 Miscellaneous Notes* Telephone Encounter - Rachel Mixon CMA - 02/15/2024 4:22 PM EDT Received PT Progress Note from [facility]. Note placed in Kathy's folder for review and signature. Will return fax upon completion. documented in this encounterHighland District Hospital04-29-2024 Telephone encounter Note* Telephone Encounter - Rachel Mixon CMA - 02/15/2024 4:22 PM EDT Received PT Progress Note from [facility]. Note placed in Kathy's folder for review and signature. Will return fax upon completion. [facility]04-25-2024 History and physical note Author Bernice Shrestha [facility] February 11, 2024 8:20am Note Date/Time February 11, 2024 8:2 0am [facility] [address] [place] [address] Gastroenterology H&P Signed Patient: Alisia Correa SR MR#: [id number] : 1960 Acct:[id number] Age/Sex: 63 / M Adm Date: 4 Loc: Room: Type: [facility] Attending Dr: Bernice Shrestha DO Copies to: [...] <Electronically signed by Bernice Shrestha DO> 02/11/24819 [facility] Work Phone: [phone]) 523-703304-25-2024 [facility]Fort [facility]04-[facility]24 Miscellaneous Notes* Telephone Encounter - Julianna Barnes - 02/09/2024 6:56 PM EDT Refill request : SUMAtriptan (IMITREX) 50 mg tablet Last filled : 09/03/2023 Last OV : 11/16/2023 Next OV : No follow up mentioned in last OV note. Reviewed by [employer]. Pend for signature. documented in this encounterUniversity Of Vermont Medical CenterVelocomp04-23-2024 Telephone encounter Note* Telephone Encounter - Julianna Barnes - 02/09/2024 6:56 PM EDT Refill request : SUMAtriptan (IMITREX) 50 mg tablet Last filled : 09/03/2023 Last OV : 11/16/2023 Next OV : No follow up mentioned in last OV note. Reviewed by [employer]. Pend for signature. [facility]04-11-2024 Miscellaneous Notes* Telephone Encounter - Rachel Mixon CMA - 01/28/2024 10:26 AM EDT Received Information for scheduling a Modified Barium Swallow form from the [facility] scheduled for 02/16/24 at 11:00am. Scanned and attached to this encounter and placed in IN HOME BABY SITTER's folder for completion. Optical Assistant will fax upon completion. * Telephone Encounter - Julianna Barnes - 01/28/2024 10:26 AM EDT Noted. * Telephone Encounter - Julianna Barnes - 01/28/2024 10:26 AM EDT Documentation completed and placed with [facility] for faxing. documented in this encounterHighland District Hospital04-11-2024 Telephone encounter Note* Telephone Encounter - Rachel Mixon CMA - 01/28/2024 10:26 AM EDT Received Information for scheduling a Modified Barium Swallow form from the [facility] scheduled for 02/16/24 at 11:00am. Scanned and attached to this encounter and placed in IN HOME BABY SITTER's folder for completion. Optical Assistant will fax upon completion. [facility]04-11-2024 Telephone encounter Note* Telephone Encounter - Julianna Barnes - 01/28/2024 10:26 AM EDT Noted. [facility]04-11-2024 Telephone encounter Note* Telephone Encounter - Julianna Barnes - 01/28/2024 10:26 AM EDT Documentation completed and placed with [facility] for faxing. [facility]04-11-2024 Evaluation + Plan note* Assessment & Plan Note - Heidy Marin MD - 01/28/2024 9:41 AM EDTAssociated Problem(s): Critical limb ischemia of both lower extremities with gangrene ([facility]-HCC) Bilateral toe wounds nonhealing, no PVR or testing [facility]04-11-2024 Miscellaneous Notes* Assessment & Plan Note - [...] smoking AAA duplex US documented in this encounterHighland District Hospital04-11-2024 Evaluation + Plan note* Assessment & Plan Note - Heidy Marin MD - 01/28/2024 9:40 AM EDT Associated Problem(s): Encounter for screening for abdominal aortic aneurysm (AAA) in patient 50 years of age or older with history of smoking AAA duplex US [employer] [id number] History of Present illness Narrative* Heidy Marin [...] DOSE. TAKE ALONG WITH SINEMET CR. 180 liofky32 diclofenac (VOLTAREN) 75 mg EC tablet Take [...] Past Medical History: Diagnosis Date Diabetes mellitus ([facility]) Diabetes mellitus type 2, controlled ([facility]) HL (hearing loss) Hypertension Kidney stones Migraine Parkinson's disease ([facility]) Spinal stenosis Past Surgical History: Past Surgical [...] Resource Strain: Low Risk (11/25/2022) [facility] Financial Resource Strain (CARDIA) Difficulty of Paying Living Expenses: Not very hard Food Insecurity: No Food Insecurity (01/28/2024) Hunger Screening Food Insecurity - Worry: Never True Food Insecurity - Inability: Never True Transportation Needs: No Transportation Needs (11/25/2022) [facility] PR[facility] - Transportation Lack of Transportation (Medical): No Lack of Transportation (Non-Medical): No Physical Activity: Not on file Stress: Not on file Social Connections: Not on file Interpersonal Safety: Not on file Housing Instability: Low Risk (11/25/2022) [facility] Housing Stability Vital Sign Unable to [...] you for your understanding. documented in this encounterHighland District Hospital03-26-2024 Miscellaneous Notes* Telephone Encounter - Rachel Mixon CMA - 01/12/2024 9:35 AM EDT Received DERMATOLOGY PHYSICIAN ASSISTANT Initial Eval from [facility] dated 01/06/24. Will have Kathy review and sign. Will return fax. documented in this encounterHighland District Hospital03-26-2024 Telephone encounter Note* Telephone Encounter - Rachel Mixon CMA - 01/12/2024 9:35 AM EDT Received DERMATOLOGY PHYSICIAN ASSISTANT Initial Eval from [facility] dated 01/06/24. Will have Kathy review and sign. Will return fax. [facility]03-26-2024 Miscellaneous Notes* Telephone Encounter - Rachel Mixon CMA - 01/12/2024 9:[address] request to evaluate and treat from [facility] dated 01/08/24. Will have Mollyreview and sign. Will return fax. documented in this encounterHighland District Hospital03-26-2024 Telephone encounter Note* Telephone Encounter - Rachel Mixon CMA - 01/12/2024 9:[address] request to evaluate and treat from [facility] dated 01/08/24. Will have Mollyreview and sign. Will return fax. [facility]03-22-2024 Miscellaneous Notes* Telephone Encounter - Rachel Mixon CMA - 01/08/2024 8:17 AM EDT Received PT Initial Eval from [facility] dated 01/06/24 . Will have Kathy review and sign. Will return fax. documented in this encounterHighland District Hospital03-22-2024 Telephone encounter Note* Telephone Encounter - Rachel Mixon CMA - 01/08/2024 8:17 AM EDT Received PT Initial Eval from [facility] dated 01/06/24 . Will have Kathy review and sign. Will return fax. [facility]02-23-2024 Miscellaneous Notes* Telephone Encounter - Fidelia Lagunas - 12/11/2023 8:55 AM EST Refill Request Medication:midodrine (PROAMATINE) 5 mg tablet Strength: Current dose & Frequency: 30 day or 90 day supply: Pharmacy:[address] Request was made by:Patients daughter. Caller [...] mentioned in last ov note. Reviewed by IN HOME BABY SITTER Pend for signature. documented in this encounterHighland District Hospital02-23-2024 Telephone encounter Note* Telephone Encounter - Fidelia Lagunas - 12/11/2023 8:55 AM EST Refill Request Medication:midodrine (PROAMATINE) 5 mg tablet Strength: Current dose & Frequency: 30 day or 90 day supply: Pharmacy:[address] Request was made by:Patients daughter. Caller states patient Is now out of this medication and the pharmacy needs a new script that reflects the changes that was made at last appointment. Patient now takes a total of 9 pills with the change and that's why patient run our early. Please advise [facility]02-23-2024 Telephone encounter Note* Telephone Encounter - Julianna Barnes - 12/11/2023 8:55 AM EST Refill request : midodrine (PROAMATINE) 5 mg tablet Last filled : 09/02/2023 Last OV : 11/16/2023 Next OV : No follow up mentioned in last ov note. Reviewed by ANDRE Pend for signature. [facility] [employer] [id number] Evaluation note* Encounter Date Diagnosis Assessment Notes Treatment Notes Treatment Clinical Notes Oct, Arthritis (ICD-10 - M19.90) Oct, Chronic pain syndrome (ICD-10 - G89.4) [employer] Other [id number] Miscellaneous Notes* Telephone Encounter - Rachel Mixon CMA - 11/17/2023 1:56 PM EST Fidelia received call from patient's son stating that patient needs a refill on C/L IR and they didn't realize that it needed filled until they got home from their appointment yesterday 11/16/23. In [facility], Rx for C/L IR 25-100 mg was written yesterday 11/16/23. 30 day supply with 11 refills. [facility] to verify that [facility] had received Rx. irrigation service technician stated they did receive Rx. Called and spoke with patient's Dipti and informed her of Rx. Dipti voiced understanding. Noaction needed. documented in this encounterThe [facility] of [facility] [employer]With[employer] [id number] Telephone encounter Note* Telephone Encounter - Rachel Mixon CMA - 11/17/2023 1:56 PM EST Fidelia received call from patient's son stating that patient needs a refill on C/L IR and they didn't realize that it needed filled until they got home from their appointment yesterday 11/16/23. In [facility], Rx for C/L IR 25-100 mg was written yesterday 11/16/23. 30 day supply with 11 refills. Called [facility] to verify that they had received Rx. irrigation service technician stated they did receive Rx. Called and spoke with patient's Dipti and informed her of Rx. Dipti voiced understanding. Noaction needed. [employer]01-29-2024 History of Present illness Narrative* Reena Crum Billy, 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-SUPPORT MERCHANDISER - 11/16/2023 1:00 PM EST Images from the original note were not included. [address] [place] [facility] [address] Patient: Alisia Correa Sr. Date of : [...] further dose adjustments He was admitted to [facility]: 11/20/22 to 12/06/22 Mr. Correa, You were [...] Past Medical History: Diagnosis Date Diabetes mellitus ([facility]) Diabetes mellitus type 2, controlled ([facility]) HL (hearing loss) Hypertension Kidney stones Migraine [...] DOSE. TAKE ALONG WITH SINEMET CR. 180 hjvibu84 traMADoL (ULTRAM) 50 mg tablet Take 1 [...] MORALES APRN-CNP 12/07/23 0817 documented in this encounterHighland District Hospital01-29-2024 Instructions* Patient Instructions* REGAN Morales - 11/16/2023 [...] some issues with numbness/tingling. documented in this encounterHighland District Hospital01-23-2024 Evaluation note* Encounter Date Diagnosis Assessment [...] at this time. This will be monitored [employer] Other 01-22-2024 Evaluation note* Encounter Date Diagnosis Assessment Notes Treatment Notes Treatment Clinical Notes Oct, Arthritis (ICD-10 - M19.90) [employer] Other 01-22-2024 Miscellaneous Notes* Telephone Encounter - Julianna Barnes - 11/09/2023 10:42 AM EST Refill request: Sinemet IR 25-100 mg tablet and Sinemet ER 25- 100 mg tablet Optical Assistant phoned patient and patient has refills remaining on both medications at pharmacy. Patient voiced understanding. documented in this encounterUC Medical CenterMosaic01-22-2024 Telephone encounter Note* Telephone Encounter - Julianna Barnes - 11/09/2023 10:42 AM EST Refill request: Sinemet IR 25-100 mg tablet and Sinemet ER 25- 100 mg tablet Optical Assistant phoned patient and patient has refills remaining on both medications at pharmacy. Patient voiced understanding. [facility] [id number] Evaluation note* Encounter Date Diagnosis Assessment Notes Treatment Notes Treatment Clinical Notes Sep, Arthritis (ICD-10 - M19.90) [employer] Other 11-29-2023 Evaluation note* Encounter Date Diagnosis Assessment Notes Treatment Notes Treatment Clinical Notes Aug, Anxiety (ICD-10 - F41.9) Aug, Neuropathy (ICD-10 - G62.9) [employer] Other 11-28-2023 Evaluation note* Encounter Date Diagnosis Assessment Notes Treatment Notes Treatment Clinical Notes Aug, Diabetic nephropathy (ICD-10 - E11.21) [employer] Other 11-15-2023 Evaluation note* Encounter Date Diagnosis [...] medrol should help with this as well. [employer] Other 11-07-2023 Evaluation note* Encounter Date Diagnosis Assessment Notes Treatment Notes Treatment Clinical Notes Aug, UTI (urinary tract infection) (ICD-10 - N39.0) Aug, Diarrhea (ICD-10 - R19.7) [employer] Other 09-15-2023 Evaluation note* Encounter Date Diagnosis Assessment Notes Treatment Notes Treatment Clinical Notes Jun, Arthritis (ICD-10 - M19.90) [employer] Other 08-08-2023 Evaluation note* Encounter Date Diagnosis Assessment Notes Treatment Notes Treatment Clinical Notes May, Parkinson disease (ICD-10 - G20) May, Constipation (ICD-10 - K59.00) [employer] Other 08-01-2023 Evaluation note* Encounter Date Diagnosis [...] narcotic induced constipation and he verbalized understanding. [employer] Other 07-10-2023 Evaluation note* Encounter Date Diagnosis Assessment Notes Treatment Notes Treatment Clinical Notes Apr, Hypotestosteronism (ICD-10 - E34.9) [employer] Other 06-02-2023 Hospital Discharge instructions Patient Education [...] and water are not available, use hand director of women's services. 3.Draw up sterile water into a syringe [...] and water are not available, use hand director of women's services. 2.Disconnect the bag from the catheter and [...] of the following methods: According to the dry room attendant's instructions. As told by your health care provider. 7.Let the bag dry completely. Put it in a clean plastic bag before storing it. General tips Always wash your hands before and after caring for your catheter and collection bag. Use a mild, fragrance-free soap. If soap and water are not available, use hand director of women's services. Clean the outside of the catheter with [...] provider. Document Revised: 12/13/2020 Document Reviewed: 11/09/2019 480 Biomedical Patient Education 2022 [employer]. Follow Up Care 02/20/2023 10:24:17 With:WALTER YBARRA, Fidel Hinkle, URL Address: [facility] [address], [place] [address]- When: Unknown [facility] 05-05-2023 Hospital Discharge instructions Patient Education 02/20/2023 [...] Follow these instructions at home: Medicines Take ffsq-jra-qnsmemc and prescription medicines only as told by [...] provider. Document Revised: 06/26/2021 Document Reviewed: 06/26/2021 480 Biomedical Patient Education 2022 [employer]. Follow Up Care 01/16/2023 11:27:11 With:WALTER YBARRA, Fidel Hinkle, URL Address: [address] [place], [place] [id number]- When: Unknown [facility] 04-14-2023 Hospital Discharge instructions Patient Education 01/30/2023 [...] urethra. Follow these instructions at home: Take ibxl-syo-sdxleth and prescription medicines only as told by [...] 10/05/2006 Document Revised: 08/30/2019 Document Reviewed: 11/09/2017 480 Biomedical Patient Education 2020 [employer]. 01/30/2023 07:57:19 Indwelling Urinary Catheter Care, Adult, Uwju-ak-Nowg Indwelling Urinary Catheter Care, Adult An indwelling [...] not have soap and water, use hand director of women's services. Always make sure there are no twists [...] 01/30/2014 Document Revised: 01/27/2020 Document Reviewed: 05/21/2018 480 Biomedical Patient Education 2020 [employer]. 01/30/2023 07:56:45 Benign Prostatic Hyperplasia Benign Prostatic [...] urethra. Follow these instructions at home: Take hdpy-knu-wexzjyg and prescription medicines only as told by [...] 10/05/2006 Document Revised: 08/30/2019 Document Reviewed: 11/09/2017 480 Biomedical Patient Education 2020 [employer]. Follow Up Care 01/27/2023 14:28:53 With:WALTER YBARRA, Fidel Hinkle, URL Address: [facility] [address] , [place] [phone] [phone] When:Within 3 Week(s) Comments:3 weeks for SP tube change [facility] 04-06-2023 NoteOP Note OPERATION DATE: 01/22/2023 PREOPERATIVE [...] the flexible scope and then passed a 26-Faroese resectoscope sheath into the bladder, and then I used the [employer] evacuator and was able to extract all [...] of the incision. I then grasped a 24-Faroese two way Carrington catheter in the jaws [...] change his SP tube in the office.[facility] [id number] NoteEXAMINATION: XR CHEST 2 V, 01/20/2023 11:23 [...] authenticated by: SHARRON BENITEZ Date: 2023-01-20 12:49[facility] [id number] Evaluation note* Encounter Date Diagnosis Assessment Notes Treatment Notes Treatment Clinical Notes Dec, Neuropathy (ICD-10 - G62.9) [employer] Other 03-08-2023 NoteHNO ID: [id number] Author: Say Reyes APRN.SUPPORT MERCHANDISER Service: ? Author Type: Nurse Practitioner Type: Progress Notes Filed: 12/24/2022 5:59 PM Note Text: The patient did not show up for this appointment.[facility] [id number] History of Present illness Narrative* Say Reyes APRN.NATHEN - 12/24/2022 11:30 AM EST The patient did not show up for this appointment. documented in [facility]Do[facility]-18-2023 [facility]2023 Note[facility]-18-2023 Miscellaneous Notes * Telephone Encounter - Zelda Saenz RN - 12/06/2022 1:15 PM EST [facility] [place] pharmacist, Macrina, requests to clarify pt.'s proamatine [...] from CC later today. documented in this encounterDoctors Hospital02-17-2023 NoteSelect [facility]02-16-2023 NoteSelect [facility]02-16-2023 Note[facility]02-15-2023 Note[facility]02-15-2023 Note [facility]-15-2023 NoteSelect [facility]02-14-2023 NoteSelect [facility] [place]02-13-2023 Note[facility] 12-01-2022 NoteSelect [facility]02-13-2023 NoteSelect [facility] [place]02-12-2023 NoteSelect [facility] [place]02-11-2023 NoteSelect [facility] [place]02-11-2023 NoteSelect [facility] [place]02-10-2023 Note [facility]02-09-2023 NoteSelect [facility]02-08-2023 NoteO ID: [id number] Author: Antonia Villa RN Service: ? Author Type: Registered Nurse Type: Nursing Progress Note Filed: 11/26/2022 10:03 AM Note Text: Transfer Note: Patient transferred in stable condition. Actions taken: Report given/called to G61 RN.[facility]02-08-2023 NoteSelect [facility]02-08-2023 NoteSelect [facility] [place]02-07-2023 NoteSelect [facility] [place]02-06-2023 NoteSelect [facility] [place]02-05-2023 Note [facility]02-04-2023 NoteSelect [facility] [place]02-03-2023 NoteSelect [facility] [place]02-03-2023 Note[facility] 11-20-2022 NoteSelect [facility]02-02-2023 NoteSelect [facility]01-30-2023 Evaluation note* Encounter Date Diagnosis Assessment Notes Treatment Notes Treatment Clinical Notes Oct, Orthostatic hypotension (ICD-10 - I95.1) [employer] Other 01-24-2023 Evaluation note* Encounter Date Diagnosis [...] He is symptomatic with dizziness and fatigue. [facility] was contacted and will attempt to [...] sympoms. We did attempt to call his family physician however nursing staff will need to discuss with Dr. Teran and they have advised that they will call both us and the patient back with an appt and recommendations due to his significant hypotention. [employer] Other 11-15-2022 Evaluation note* Encounter Date Diagnosis [...] Aug, Needs flu shot (ICD-10 - Z23) [employer] Other 11-11-2022 Evaluation note* Encounter Date Diagnosis Assessment Notes Treatment Notes Treatment Clinical Notes Aug, Benign prostatic hyperplasia with lower urinary tract symptoms, symptom details unspecified (ICD-10 - N40.1) [employer] Other 11-10-2022 Evaluation note* Encounter Date Diagnosis Assessment Notes Treatment Notes Treatment Clinical Notes Aug, Benign prostatic hyperplasia with lower urinary tract symptoms, symptom details unspecified (ICD-10 - N40.1) [employer] Other 08-30-2022 Evaluation note* Encounter Date Diagnosis Assessment Notes Treatment Notes Treatment Clinical Notes May, Neuropathy (ICD-10 - G62.9) [employer] Other 08-03-2022 Evaluation note* Encounter Date Diagnosis [...] - N40.1) May, Parkinsonism (ICD-10 - G20) [employer] Other 06-07-2022 Evaluation note* Encounter Date Diagnosis Assessment Notes Treatment Notes Treatment Clinical Notes Mar, Hypotension (ICD-10 - I95.9) [employer] Other 05-03-2022 History of Present illness Narrative* Nevaeh Oviedo RN - 02/18/2022 12:15 PM EDT Discharged with [facility] per cart to retirement with AVS and scripts. * Nevaeh Oviedo RN - 02/18/2022 11:00 AM EDT Report called to [facility]. All Questions answered. Phone number given [...] HOLLY Morejon - 02/17/2022 10:02 AM EDT [facility] ORTHOPEDICS 7K Occupational Therapy Daily Note Time: Time In: 923 Time Out: 1001 Timed Code Treatment Minutes: 38 Minutes Minutes: 38 Date: 02/17/2022 Patient Name: Alisia Correa, Gender: male [facility] 1960 [...] INTAKE/OUTPUT: Intake/Output Summary (Last 24 hours) at 02/17/2022603 Last data filed at 02/17/2022 0523 Gross [...] Wall, PT - 02/16/2022 10:39 AM EDT [facility] INPATIENT PHYSICAL THERAPY DAILY NOTE [facility] [...] Ambulation Assistance: Independent Transfer Assistance: Independent Active Wire Strander: Yes Additional Comments: pt states d/t PD, he requires assistance with transfers and ambulation; pt hadHH PT LEAD RADIATION THERAPIST Restrictions/Precautions: Restrictions/Precautions: General Precautions,Fall Risk Required Braces [...] with LAQ noted Functional Outcome Measures: Completed -[facility] Inpatient Mobility without Stair Climbing Raw Score : 12 -[facility] Inpatient without Stair Climbing T-Scale Score [...] to navigate home distances. Additional Goals?: No Upsetter Helper Goals Time Frame for residential goals : N/A due to short ELOS Following session, patient left in safe position with all fall risk precautions in place. * Lulu Chan, OT - 02/15/2022 2:57 PM EDT [facility] ORTHOPEDICS 7K Occupational Therapy Daily Note Time: Time In: 1452 Time Out: 1520 Timed Code Treatment Minutes: 28 Minutes Minutes: 28 Date: 02/15/2022 Patient Name: Alisia Correa, Gender: male [facility] : 1960 (61 y.o.) Referring Practitioner: [...] Vaughan, PT - 02/14/2022 3:02 PM EDT [facility] INPATIENT PHYSICAL THERAPY DAILY NOTE [facility] [...] Ambulation Assistance: Independent Transfer Assistance: Independent Active Wire Strander: Yes Additional Comments: pt states d/t PD, he requires assistance with transfers and ambulation; pt hadHH PT LEAD RADIATION THERAPIST Restrictions/Precautions: Restrictions/Precautions: General Precautions,Fall Risk Required Braces [...] to navigate home distances. Additional Goals?: No Longterm Goals Time Frame for residential goals : N/A due to short ELOS Following session, patient left in safe position with all fall risk precautions in place. Josue Vaughan PT, DPT * Evelina Parra MD - 02/14/2022 12:32 PM EDT INTERNAL MEDICINE Progress Note 02/14/2022 12:32 PM Subjective: Admit Date: 02/07/2022 PCP: ELLEN CRABTREE, Interval History: Low bp on midodrine, Objective: [...] HOLLY Mchugh - 02/14/2022 10:57 AM EDT [facility] OCCUPATIONAL THERAPY MISSED TREATMENT NOTE [facility] ORTHOPEDICS 7K 7K-12/012-A Date: 02/14/2022 Patient Name: Alisia Correa CSN: [id number] : 1960 (61 y.o.) Gender: male Referring [...] 60 minutes Evelina Parra MD, MD * Carla Kilgore, GRAIN AND YEAST PLANTS SUPERVISOR - 02/13/2022 12:33 PM EDT [facility] ORTHOPEDICS 7K Occupational Therapy Daily Note Time: Time In: 1109 Time Out: 1135 Timed Code Treatment Minutes: 26 Minutes Minutes: 26 Date: 02/13/2022 Patient Name: Alisia Correa, Gender: male [facility] 1960 (61 y.o.) Referring Practitioner: [...] Vaughan PT - 02/13/2022 11:02 AM EDT [facility] INPATIENT PHYSICAL THERAPY DAILY NOTE [facility] ORTHOPEDICS 7K - 7K-12/012-A Time In: 903 [...] Ambulation Assistance: Independent Transfer Assistance: Independent Active Wire Strander: Yes Additional Comments: pt states d/t PD, he requires assistance with transfers and ambulation; pt hadHH PT LEAD RADIATION THERAPIST Restrictions/Precautions: Restrictions/Precautions: General Precautions,Fall Risk Required Braces or Orthoses Spinal: Lumbar Corset Other: Abdominal Binder Position Activity Restriction Spinal Precautions: No Bending,No Lifting,No Twisting Other position/activity restrictions: hx PD; monitor BP SUBJECTIVE: RN approved session. Pt pleasant and agreeable to therapy. Pt does c/o slight headache but states it is much better than yesterday. PAIN: 03/28: back Vitals: Vitals not assessed [...] independence withfunctional mobility. Functional Outcome Measures: Completed [facility] Inpatient Mobility without Stair Climbing Raw Score : 15 -[facility] Inpatient without Stair Climbing T-Scale Score [...] to navigate home distances. Additional Goals?: No Upsetter Helper Goals Time Frame for residential goals : N/A due to short ELOS [...] HOLLY Morejon - 02/12/2022 2:39 PM EDT [facility] ORTHOPEDICS 7K Occupational Therapy Daily Note Time: Time In: 1356 Time Out: 1439 Timed Code Treatment Minutes: 43 Minutes Minutes: 43 Date: 02/12/2022 Patient Name: Alisia Correa, Gender: male [facility] 1960 (61 y.o.) Referring Practitioner: [...] Patient tolerance of treatment: fair. Discharge Recommendations: Subacute/penitentiary facility and Inpatient Therapy Stay Equipment Recommendations: [...] Status: At risk for malnutrition (Comment) (02/10/22 2575) Context: Acute Illness Findings of the 6 clinical characteristics of malnutrition: Energy Intake: No significant decrease in energy intake Weight Loss: (4.8% wt loss in 18 days however now eating 76-100%) Body Fat Loss: No significant body fat loss Muscle Mass Loss: No significant muscle mass loss Fluid Accumulation: Mild Extremities Board Writer Strength: Not Performed Nutrition Assessment: Pt. nutritionally [...] Anthropometric Measures: Height: 5' 10 (177.8 cm) [place] Body Weight (IBW): 166 lbs (75 kg) [...] 1625-1806kcals (18-20kcals/kgm) Weight Used for Protein Requirements: [place] Protein (g/day): 105-150 grams (1.4-2 grams protein/kgm [...] Corrales PTA - 02/12/2022 11:52 AM EDT [facility] INPATIENT PHYSICAL THERAPY DAILY NOTE [facility] [...] Ambulation Assistance: Independent Transfer Assistance: Independent Active Wire Strander: Yes Additional Comments: pt states d/t PD, he requires assistance with transfers and ambulation; pt hadHH PT LEAD RADIATION THERAPIST Restrictions/Precautions: Restrictions/Precautions: General Precautions,Fall Risk Required Braces [...] with functional mobility. Functional Outcome Measures: Completed AM-[facility] Inpatient Mobility without Stair Climbing Raw Score : 12 AM-[facility] Inpatient without Stair Climbing T-Scale Score [...] to navigate home distances. Additional Goals?: No Longterm Goals Time Frame for residential goals : N/A due to short ELOS [...] PM EDT Pt admitted to [facility] via cart/stretcher. Complaints: L2-S1 degenerative disc disease. [...] room. Explained patients right to have family, retention representative or physician notified of their admission. Patient has Declined for physician to be notified. Patient has Declined for family/retention representative to be notified. The patient is [facility] in [facility] program?: No Policies and procedures for explained. All questions answered with no further questions at this time. Fall prevention and safety brochure discussed with patient. Bed alarm on. Call light in reach. * Peace Alonso RN - 02/11/2022 5:00 PM EDT Call placed to patients Dipti. Updated that the patient is transferring to [facility]. * Pamela Lees, PT - 02/11/2022 3:42 PM EDT [facility] INPATIENT PHYSICAL THERAPY DAILY NOTE [facility] ICU STEPDOWN TELEMETRY 4K - 4K-025-A Time In: 1330 Time Out: 1353 Timed [...] Ambulation Assistance: Independent Transfer Assistance: Independent Active Wire Strander: Yes Additional Comments: pt states d/t PD, he requires assistance with transfers and ambulation; pt hadHH PT LEAD RADIATION THERAPIST Restrictions/Precautions: Restrictions/Precautions: General Precautions,Fall Risk Required Braces [...] to navigate home distances. Additional Goals?: No Longterm Goals Time Frame for residential goals : N/A due to short ELOS Following session, patient left in safe position with all fall risk precautions in place. * Danica Lopes, HOLLY - 02/11/2022 1:02 PM EDT [facility] ICU STEPDOWN TELEMETRY 4K Occupational Therapy Daily Note Time: Time In: 1045 Time Out: 1129 Timed Code Treatment Minutes: 44 Minutes Minutes: 44 Date: 02/11/2022 Patient Name: Alisia Correa, Gender: male Room: [facility]/025-A : 1960 (61 y.o.) Referring Practitioner: Maki [...] Status: At risk for malnutrition (Comment) (02/10/22 1735) Context: Acute Illness Findings of the 6 clinical characteristics of malnutrition: Energy Intake: No significant decrease in energy intake Weight Loss: (4.8% wt loss in 18 days however now eating 76-100%) Body Fat Loss: No significant body fat loss Muscle Mass Loss: No significant muscle mass loss Fluid Accumulation: Mild Extremities Board Writer Strength: Not Performed Nutrition Assessment: Pt. nutritionally [...] Anthropometric Measures: Height: 5' 10 (177.8 cm) [place] Body Weight (IBW): 166 lbs (75 kg) [...] 1625-1806kcals (18-20kcals/kgm) Weight Used for Protein Requirements: [place] Protein (g/day): 105-150 grams (1.4-2 grams protein/kgm [...] Progress Note PATIENT: ALISIA CORREA CSN #: [id number] : 1960 ADMIT DATE: 02/07/2022 8:09 AM [...] increased, transfer to stepdown unit Thank you! FARIBA KennedyN,RN, CRCR RN Clinical Cut Tobacco Bulker P: [phone] Options provided: -- Hypovolemic Shock -- Hypovolemia [...] HOLLY Mchugh - 02/10/2022 2:42 PM EDT [facility] ICU STEPDOWN TELEMETRY 4K Occupational Therapy Daily Note Time: Time In: 1358 Time Out: 1421 Timed Code Treatment Minutes: 23 Minutes Minutes: 23 Date: 02/10/2022 Patient Name: Alisia Correa, Gender: male Room: [address] [place] [address] : 1960 (61 y.o.) Referring Practitioner: Maki [...] Alisia Correa Date of : 1960 Acct: [id number] Admit Date: 02/07/2022 Primary Iron Launder Operator: none Per Dr Schrader's note: REASON [...] Calix PTA - 02/10/2022 9:53 AM EDT [facility] INPATIENT PHYSICAL THERAPY DAILY NOTE [facility] ICU STEPDOWN TELEMETRY - -A Time In: 08 Time Out: 0903 Timed Code Treatment Minutes: 45 Minutes Minutes: [...] Needs assistance Transfer Assistance: Needs assistance Active Wire Strander: No Additional Comments: pt states d/t PD, he requires assistance with transfers and ambulation; pt hadHH PT LEAD RADIATION THERAPIST Restrictions/Precautions: Restrictions/Precautions: General Precautions,Fall Risk Required Braces or Orthoses Spinal: Lumbar Corset Other: Abdominal Binder Position Activity Restriction Spinal Precautions: No Bending,No Lifting,No Twisting Other position/activity restrictions: hx PD; monitor BP SUBJECTIVE: RN approved session. Patient laying in bed upon arrival and agreeable to therapy. Patient requested to use BSC during session. PAIN: 10: back Vitals: Vitals not assessed [...] to navigate home distances. Additional Goals?: No Upsetter Helper Goals Time Frame for residential goals : N/A due to short ELOS [...] EDT Physician Progress Note PATIENT: ALISIA CORREA [facility] #: [id number] : 1960 ADMIT DATE: 02/07/2022 8:09 AM DISCH DATE: RESPONDING PROVIDER #: DON SINGH PA-C QUERY TEXT: Pt admitted with L2-S1 degenerative disc disease with neuroforaminal stenosis and radiculopathy and L2-L4 central canal stenosis, and underwent surgery on 02/07. 02/07 IM note states, Acute resp failure postop. 02/07 @ 1439: 90% on RA...91% on 6 L; 02/07 @ 2116: weaned to RA; 02/0800: 94% on 2 [...] @ 2116: weaned to RA; 02/08 @ 00: 94% on 2 L; PICHARDO, expiratory wheezes Treatment: O2 via NC, Dulera Thank you! Nevaeh Goldsmith RN, BSN, DRY ROOM ATTENDANT, CCDS Clinical Cut Tobacco Bulker Options provided: -- Acute pulmonary insufficiency following [...] Alisia Correa Date of : 1960 Acct: [id number] -A Primary Care Physician: ELLEN CRABTREE DO [...] TROPONINT in the last 72 hours. Imaging: @[id number]@ EKG: Diet: ADULT DIET; Regular; 4 carb [...] Oral Nightly Continuous Infusions: DOPamine 9.5 mcg/kg/min (02/09/22 0555) sodium chloride sodium chloride 150 mL/hr at 02/09/22 0555 PRN Meds:.traMADol, albuterol sulfate HFA, sodium chloride flush, sodium chloride, acetaminophen, ondansetron OR ondansetron, cyclobenzaprine, bisacodyl, fleet, oxyCODONE-acetaminophen OR oxyCODONE-acetaminophen, morphine Continuous Infusions: DOPamine 9.5 mcg/kg/min (02/09/22 0555) sodium chloride sodium chloride 150 mL/hr at 02/09/22 0555 Assessment 1. Chronic hypotension on Midodrine [...] Dr Jorgensen. Pt seen and examined by ca D/w Marielena Mustafa Pt did not respond [...] 0915 Rapid Response team arrived. Marielena Mustafa INTERNAL COMMUNICATIONS INTERN at bedside. Saline bolus ordered and started. 0922 BP 70/46 0923 Orders received. Start on telemetry monitoring, CXR, Increase Midodrine to TID, Stat H+H. 0937 Orders received. H+H at 1700, CBC in AM 1007 CXR at bedside. BP 64/45. Hgb 11.4. IM notified. 1023 BP continues to be low. 500mL saline bolus started 1141 BP 85/47 after bolus. Updated SUPPORT MERCHANDISER. 1218 BP 70/38, at bedside. Ordered to [...] Mauricio on 4K. Transport placed. * Jennifer Miguelp, OT - 02/08/2022 1:01 PM EDT [facility] IN[facility]IENT OCCUPATIONAL THERAPY [facility] [...] needing to return to bed from recliner. IN HOME BABY SITTER present to assist. Pain: 12/26 Vitals: Blood [...] Needs assistance Transfer Assistance: Needs assistance Active Wire Strander: No Additional Comments: pt states d/t PD, he requires assistance with transfers and ambulation; pt hadHH PT LEAD RADIATION THERAPIST VISION:WFL HEARING: WFL COGNITION: Slow Processing and [...] Pandya, PT - 02/08/2022 10:33 AM EDT [facility] INPATIENT PHYSICAL THERAPY EVALUATION [facility] [...] Assistance: Needs assistance ( assists him) Active Wire Strander: No Additional Comments: pt states d/t PD, he requires assistance with transfers and ambulation; pt hadHH PT LEAD RADIATION THERAPIST OBJECTIVE: Range of Motion: Bilateral Lower Extremity: [...] diaphoretic, and lightheaded Functional Outcome Measures: Completed AM-[facility] Inpatient Mobility Raw Score : 11 AM-[facility] Inpatient T-Scale Score : 33.86 ASSESSMENT: [...] Recommendations: Discharge Recommendations: Continue to assess pending progress,Subacute/Fpc Facility. Unsafe to return home at this [...] to navigate home distances. Additional Goals?: No Longterm Goals Time Frame for predatory animal exterminator goals : N/A due to short ELOS [...] and faxed to pharmacy * Brianne Perez [facility] - 02/07/2022 4:29 PM EDT Pharmacy Note Alisia Cox Sunny was ordered Zetia 10 mg nightly. Per [...] PM EDT Pt admitted to [facility] via cart/stretcher. Complaints: L2-S1 decompression/fusion. IV normal [...] room. Explained patients right to have family, retention representative or physician notified of their admission. Patient has Declined for physician to be notified. Patient has Declined for family/retention representative to be notified. The patient is [facility] in [facility] program?: No Policies and procedures for 7K explained. All questions answered with no further questions at this time. Fall prevention and safety brochure discussed with patient. Bed alarm on. Call light in reach. * Kiara Toro RN - 02/07/2022 9:49 AM EDT ADMITTED TO [facility]IN [facility] AND ORIENTED TO UNIT. SCDS ON. FALL AND ALLERGY BANDS ON. PT VERBALIZED APPROVAL FOR FIRST NAME, LAST INITIAL AND PHYSICIAN NAME ON UNIT WHITEBOARD. * Evangelist Cummins - 01/20/2022 9:11 AM EDT Called for PAT reminder Lft Msg. documented in this [facility] Phone: [phone]) 471-973405-03-2022 Hospital Discharge instructions* Discharge Instr - DYLON* Nevaeh Oviedo RN - 02/18/2022 7:44 AM EDT Continuity of Care Form Patient Name: Alisia Correa : 1960 Admit date: 02/07/2022 Discharge date: Code Status Order: Full Code Advance Directives: Advance Care Flowsheet Documentation Date/Time Healthcare Directive Type of Healthcare Directive Copy in Chart Healthcare Agent Appointed Healthcare Agent's Name Healthcare Agent's Phone Number 02/07/22 0941 Yes, patient has an advance directive for healthcare treatment Durable power of employee benefits attorney for health care No, copy requested from family [facility] power of employee benefits attorney Dipti- -- Admitting Physician: Frank Reddy MD PCP: ELLEN CRABTREE DO Discharging Nurse: Discharging Hospital Unit/Room#: 7K-12/012-A Discharging Unit Phone Number: Emergency Contact: Extended Emergency Contact Information Primary Emergency Contact: Dipti Correa Mobile Relation: Spouse Preferred language: Bengali Can Dragger needed? No Past Surgical History: Past Surgical [...] Assisted Dressing Assisted Toileting Assisted Feeding Assisted Senior Software Tester Assisted Med Delivery whole Wound Care Documentation [...] applicable) Name: Address: Dialysis Schedule: Phone: Fax: Test Development Engineer/Counter Top Maker signature: {Esignature:[id number]} PHYSICIAN SECTION Prognosis: {Prognosis:9827068059} Condition at Discharge: { Patient Condition:632058605} Rehab Potential (if transferring to Rehab): {Prognosis:6043001398} Recommended Labs or Other Treatments After Discharge: Physician Certification: I certify the above information and transfer of Alisia Correa is necessary for the continuing treatment of the diagnosis listed and that he requires {Admit to Appropriate Level of Care:88339} for {GREATER/LESS:897219440} 30 days. Update Admission H&P: {CHP DME Changes in HandP:327400427} PHYSICIAN SIGNATURE: * Additional Instructions* Nevaeh Oviedo [...] All vegetables, especially asparagus, jack sprouts, broccoli, [place] sprouts, cabbage, carrots, cauliflower, celery, corn, greens, [...] taking more than one drug. This includes [id number] medication and herb or dietary supplements. Plan [...] dr schrader 6-8 weeks documented in this [facility] [employer] Work Phone: [phone] NotePROCEDURE: XR CHEST PORTABLE CLINICAL INFORMATION: SOB. [...] by: Romel Maldonado DO 02/08/[address] [facility] NotePROCEDURE: XR CHEST PORTABLE CLINICAL INFORMATION: SOB. [...] stable degenerative changes of the acromioclavicular joints. [facility] [id number] NotePROCEDURE: XR LUMBAR SPINE 1 VW CLINICAL [...] by: Milton Way MD 02/07/[address] [facility]-2022 NotePROCEDURE: XR LUMBAR SPINE 1 VW CLINICAL [...] behind the L2 and L3 vertebral bodies. [facility] [id number] Evaluation note* Encounter Date Diagnosis Assessment Notes [...] Nasal swab noted MRSA. Advised patient to diamond picker antibiotic and start it as soon as possible. [employer] Other 04-07-2022 NotePROCEDURE: XR CHEST (2 VW) [...] Signed by: Olga Espinoza MD 01/23/22 [facility]* Encounter Date Diagnosis Assessment Notes Treatment Notes Treatment Clinical Notes Jan, Parkinsonism (ICD-10 - G20) Jan, Diabetes (ICD-10 - E11.9) [employer] Other 03-28-2022 Evaluation note* Encounter Date Diagnosis Assessment Notes Treatment Notes Treatment Clinical Notes Dec, Constipation (ICD-10 - K59.00) [employer] Other 02-17-2022 Evaluation note* Encounter Date Diagnosis Assessment Notes Treatment Notes Treatment Clinical Notes Nov, Hyperlipidemia (ICD-10 - E78.5) Nov, Parkinsonism (ICD-10 - G20) Patient following with neurologist Dr. Mancia and dry cleaning machine operator Dr. Harris. He reports improvement with [...] symptoms, symptom details unspecified (ICD-10 - N40.1) [employer] Other 02-07-2022 Miscellaneous Notes* Telephone Encounter - Chrissy Christian - 11/25/2021 3:17 PM EST FINAL ATTEMPT Called and left detailed message for patient to call to schedule procedure with pain management. Will follow up. Patient provided with direct extension to reach surgical coordinators. If patient calls back, please transfer to [phone]. * Telephone Encounter - Chrissy Christian - 11/21/2021 6:07 PM EST Bilateral L 2-3 ,3-L4, L4-L5 and L5-S1 FACET ALISIA CORREA [id number] JEANNIE HENDERSON Called and left detailed message for patient to call to schedule procedure with pain management. Will follow up. Patient provided with direct extension to reach surgical coordinators. If patient calls back, please transfer to [phone]. * Telephone Encounter - Chrissy Christian - 11/14/2021 11:53 AM EST Bilateral L 2-3 ,3-L4, L4-L5 and L5-S1 FACET ALISIA CORREA [id number] CLA Called and left detailed message for patient to call to schedule procedure with pain management. Will follow up. Patient provided with direct extension to reach surgical coordinators. If patient calls back, please transfer to [phone]. * Telephone Encounter - Kiara Dhaliwal RN [...] relief from today's block. [facility]* Encounter Date Diagnosis Assessment Notes Treatment Notes Treatment Clinical Notes Oct, Hypotension, unspecified hypotension type (ICD-10 - I95.9) Oct, Risk for falls (ICD-10 - Z91.81) Oct, Diabetes (ICD-10 - E11.9) Oct, Neuropathy (ICD-10 - G62.9) Oct, Failed back syndrome (ICD-10 - M96.1) Oct, Parkinsonism (ICD-10 - G20) [employer] Other 12-13-2021 Evaluation note* Encounter Date Diagnosis Assessment Notes Treatment Notes Treatment Clinical Notes Sep, Parkinsonism (ICD-10 - G20) [employer] Other 11-16-2021 Evaluation note* Encounter Date Diagnosis Assessment Notes Treatment Notes Treatment Clinical Notes Aug, Benign prostatic hyperplasia with lower urinary tract symptoms (ICD-10 - N40.1) [employer] Other 11-09-2021 Evaluation note* Encounter Date Diagnosis [...] I strongly recommend the patient contact his circulation clerk to be evaluated. 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 [employer] Other 10-28-2020 History of Present illness Narrative* Peace [facility] (Ct), NIKKIE - 08/15/2020 8:40 AM EDT Radiology Service [...] 15, 2020 8:27 AM [facility] History of Present illness Narrative* [facility])NIKKIE - 06/15/2020 9:00 AM EDT Radiology Service [...] 15, 2020 9:03 AM documented [facility] History of Past illness Narrative* Problem Noted Date Resolved Date Ulcerative lesion 12/07/2017 07/21/2019 Glenohumeral arthritis 07/17/2016 9 SPRAIN OF NECK () 03/06/2004 07/21/20 Brachial neuritis or radiculitis 03/06/2004 12/22/2018 Carpal tunnel syndrome 03/06/2004 9 documented as of this encounter (statuses as of 01/28/2022) [facility] Narrative* Problem Noted Date Resolved Date Ulcerative lesion 12/07/2017 07/21/2019 Glenohumeral arthritis 07/17/2016 9 Urgency of urination 07/31/2006 12/05/2022 SPRAIN OF NECK () 03/06/2004 07/21/20 19 Brachial neuritis or radiculitis 03/06/2004 12/22/2018 Carpal tunnel syndrome 03/06/2004 9 documented as of this encounter (statuses as of 12/06/2022) [facility] Narrative* Problem Noted Date Resolved Date Ulcerative lesion 12/07/2017 07/21/2019 Glenohumeral arthritis 07/17/2016 9 Urgency of urination 07/31/2006 12/05/2022 SPRAIN OF NECK () 03/06/2004 07/21/20 19 Brachial neuritis or radiculitis 03/06/2004 12/22/2018 Carpal tunnel syndrome 03/06/2004 9 documented as of this encounter (statuses as of 12/25/2022) [facility] Narrative* Problem Noted Date Diagnosed Date Resolved Date Ulcerative lesion 12/07/2017 07/21/2019 Glenohumeral arthritis 07/17/201612/22 Urgency of urination 07/31/2006 023 SPRAIN OF NECK () 03/06/200412/2018 Brachial neuritis or radiculitis 03/06/2004 12/22/2018 Carpal tunnel syndrome 03/06/200412/22 documented as of this encounter (statuses as of 05/29/2023) [facility] Narrative* Problem Noted Date Diagnosed Date Resolved Date Ulcerative lesion 12/07/2017 07/21/2019 Glenohumeral arthritis 07/17/201612/22 Urgency of urination 07/31/2006 023 SPRAIN OF NECK () 03/06/200412/2018 Brachial neuritis or radiculitis 03/06/2004 12/22/2018 Carpal tunnel syndrome 03/06/200412/22 documented as of this encounter (statuses as of 05/29/2023) [facility] Narrative* Problem Noted Date Diagnosed Date Resolved Date Ulcerative lesion 12/07/2017 07/21/2019 Glenohumeral arthritis 07/17/201612/22 Urgency of urination 07/31/2006 023 SPRAIN OF NECK () 03/06/200412/2018 Brachial neuritis or radiculitis 03/06/2004 12/22/2018 Carpal tunnel syndrome 03/06/200412/22 documented as of this encounter (statuses as of 05/29/2023) [facility] general Narrative - Reported* Type Description Date Medical History 06/07/12 Stress Test [facility] Medical History 2008-colonoscopy [facility] Dr. Ordonez; 07/2016 colonoscopy/egd [facility] Medical History 01/26/15 Labs Medical History 03/2016- [place] Medical History 08/20/16 PSA ( 0.79) Medical [...] total hip-CC 04/10/20 Hospitalization History SEE ABOVE [employer] Other 08-20-2012 History general Narrative - Reported* Type Description Date Medical History 06/07/12 Stress Test NO Medical History 2008-colonoscopy [facility] Dr. Ordonez; 07/2016 colonoscopy/egd [facility] Medical History 01/26/15 Labs Medical History 03/2016- [place] Medical History 03/2016 [place] Medical History 08/20/16 PSA ( 0.79) Medical [...] Roman hinkle 10/2021 Hospitalization History SEE ABOVE [employer] Other 08-20-2012 History general Narrative - Reported* Type Description Date Medical History 06/07/12 Stress Test NO Medical History 2008-colonoscopy [facility] Ordone[facility]; 07/2016 colonoscopy/egd [facility] Medical History 01/26/15 Labs Medical History 03/2016- [place] Medical History 03/2016 [place] Medical History 08/20/16 PSA ( 0.79) Medical [...] Roman hinkle 10/2021 Hospitalization History SEE ABOVE [employer] Other 08-20-2012 History general Narrative - Reported* Type Description Date Medical History 06/07/12 Stress Test NO Medical History 2008-colonoscopy [facility]done[facility]; 07/2016 colonoscopy[facility]egd [facility] Medical History 01/26/15 Labs Medical History 03/2016- [place] Medical History 03/2016 [place] Medical History 08/20/16 PSA ( 0.79) Medical [...] Dr Romo 01/2022 Hospitalization History SEE ABOVE [employer] Other 08-20-2012 History general Narrative - Reported* Type Description Date Medical History 06/07/12 Stress Test NO Medical History 2008-colonoscopy wit h Dr. Ordonez; 07/2016 colonoscopy[facility]egd [facility] Medical History 01/26/15 Labs Medical History 03/2016- [place] Medical History 03/2016 [place] Medical History 08/20/16 PSA ( 0.79) Medical [...] History SEE ABOVE Hospitalization History pneumonia 10/2022 [employer] Other 08-20-2012 History general Narrative - Reported* Type Description Date Medical History 06/07/12 Stress Test [facility] Medical History 2008-colonoscopy wit h Dr. Ordonez; 07/2016 colonoscopy/egd [facility] Medical History 01/26/15 Labs Medical History 03/2016- [place] Medical History 03/2016 [place] Medical History 08/20/16 PSA ( 0.79) Medical [...] History SEE ABOVE Hospitalization History pneumonia 10/2022 [employer] Other Chief complaint Narrative - ReportedCHAGEOFFREY CORREA is being seen for a consultation for chest pain.-[facility] [address] DO Work Phone: Chief complaint Narrative - Reported* ALISIA CORREA is being seen for a consultation for chest pain. * 60-year-old white male who is being evaluated at the request of PCP for symptoms of dyspnea and chest pain with syncope. The patient appears older than his stated age and unfortunately has history ofParkinson's disease followed by neurology from [place] on medical therapy. The patient has been [...] 7 Parkinson's disease followed by neurology from [place]. * 8 obesity, encouraged the patient to reduce caloric consumption * 9 possible PAD, [facility] [place] Work Phone: Evaluation + Plan note Future Appointments Appointment Date:02/20/2023 09:15:00 AM Scheduled Provider:Fidel IBARRA MD Location:[facility] Appointment Type:URO Office Visit [facility] evaluation + Plan note Future Appointments Appointment Date:03/20/2023 09:00:00 AM Scheduled Provider: Location:[facility] [place] Appointment Type:URO Nurse Visit [facility] [place] evaluation + Plan note Future Appointments Appointment Date:04/17/2023 09:00:00 AM Scheduled Provider: Location:[facility] [place] Appointment Type:URO [facility] Plan note Future Appointments Appointment Date:05/25/2023 11:00:00 AM Scheduled Provider: Location:[facility] [place] Appointment Type:URO Nurse Visit [facility] evaluation + Plan note Future Appointments Appointment Date:06/19/2023 11:00:00 AM Scheduled Provider: Location:[facility] [place] Appointment Type:URO Nurse Visit [facility] [place] evaluation + Plan note Future Appointments Appointment Date:06/19/2023 11:00:00 AM Scheduled Provider: Location:[facility] [place] Appointment Type:URO Nurse Visit Diagnostic Tests Pending * Urine Culture 05[facility] [facility] Future Appointments Appointment Date:07/17/2023 11:00:00 AM Scheduled Provider: Location:[facility] [place] Appointment Type:URO [facility] + Plan note Future Appointments Appointment Date:07/17/2023 11:00:00 AM Scheduled Provider: Location:[facility] [place] Appointment Type:URO Nurse Visit Diagnostic Tests Pending * Urine Culture 06/19/[address] [facility] Future Appointments Appointment Date:08/14/2023 11:00:00 AM Scheduled Provider: Location:[facility] [place] Appointment Type:URO Nurse Visit [facility] [place] evaluation + Plan note Future Appointments Appointment Date:08/14/2023 11:00:00 AM Scheduled Provider: Location:[facility] [place] Appointment Type:URO Nurse Visit Diagnostic Tests Pending * Urine Culture 07/17/[address] [address] Future Appointments Appointment Date:09/14/2023 11:00:00 AM Scheduled Provider: Location:[facility] [place] Appointment Type:URO Nurse Visit [facility] evaluation + Plan note Future Appointments Appointment Date:10/20/2023 11:00:00 AM Scheduled Provider: Location:[facility] [place] Appointment Type:URO Nurse Visit [facility] evaluation + Plan note Future Appointments Appointment Date:11/16/2023 11:00:00 AM Scheduled Provider: Location:[facility] [place] Appointment Type:URO Nurse Visit Diagnostic Tests Pending * Urine Culture 10/21/[address] [address] Future Appointments Appointment Date:12/14/2023 11:30:00 AM Scheduled Provider: Location:[facility] [place] Appointment Type:URO Nurse Visit [facility] evaluation + Plan note Future Appointments Appointment Date:02/01/2024 11:00:00 AM Scheduled Provider: Location:[facility] [place] Appointment Type:URO Nurse Visit [facility] evaluation + Plan note Future Appointments Appointment Date:02/22/2024 11:00:00 AM Scheduled Provider: Location:[facility] [place] Appointment Type:URO Nurse Visit [facility] evaluation + Plan note Future Appointments Appointment Date:03/15/2024 10:30:00 AM Scheduled Provider: Location:[facility] [place] Appointment Type:URO Nurse Visit [facility] evaluation + Plan note Future Appointments Appointment Date:03/15/2024 10:30:00 AM Scheduled Provider: Location:[facility] Appointment Type:URO Nurse Visit Diagnostic Tests Pending * Urine Culture 02/23/[address] Future Appointments Appointment Date:04/05/2024 02:40:00 PM Scheduled Provider:TITI Duncan APRN, [place] Location:[facility] Appointment Type:URO Office Visit [facility] [place] evaluation + Plan note Future Appointments Appointment Date:04/26/2024 11:30:00 AM Scheduled Provider:TITI Duncan APRN, [place] Location:[facility] Appointment Type:URO Office Visit [facility] evaluation + Plan note Future Appointments Appointment Date:04/26/2024 11:30:00 AM Scheduled Provider:TITI Duncan APRN, [place] Location:[facility] Appointment Type:URO Office Visit Diagnostic Tests Pending * Urine Culture 04/05/[address] [facility] Future Appointments Appointment Date:06/30/2024 11:00:00 AM Scheduled Provider:Madeline Harry Location:[facility] Appointment Type:URO Office Visit [facility] evaluation + Plan note Future Appointments Appointment Date:06/30/2024 11:00:00 AM Scheduled Provider:Madeline Harry Location:[facility] Appointment Type:URO Office Visit Diagnostic Tests Pending * Urine Culture 06/14/[address] [facility] Evaluation + Plan note Future Appointments Appointment Date:08/09/2024 02:30:00 PM Scheduled Provider:TITI Duncan APRN, [place] Location:[facility] Appointment Type:URO Office Visit [facility] evaluation + Plan note Future Appointments Appointment Date:08/30/2024 11:40:00 AM Scheduled Provider:LYN MACE PA-C Location:[facility] Appointment Type:URO Office Visit [facility] evaluation + Plan note Future Appointments Appointment Date:09/27/2024 11:20:00 AM Scheduled Provider:LYN MACE PA-C Location:[facility] Appointment Type:URO Office Visit [facility] evaluation + Plan note Future Appointments Appointment Date:07/19/2024 12:30:00 PM Scheduled Provider:TITI Duncan APRN, [place] Location:[facility] Appointment Type:URO Office Visit [facility] evaluation + Plan note Future Appointments Appointment Date:10/28/2024 11:20:00 AM Scheduled Provider:LYN MACE PA-C Location:[facility] Appointment Type:URO Office Visit Diagnostic Tests Pending * Urine Culture 09/27/[address] [facility] evaluation + Plan note Future Appointments Appointment Date:10/28/2024 11:20:00 AM Scheduled Provider:LYN MACE PA-C Location:[facility] Appointment Type:URO Office Visit [facility] evaluation + Plan note Future Appointments Appointment Date:11/25/2024 11:20:00 AM Scheduled Provider:LYN MACE PA-C Location:[facility] Appointment Type:URO Office Visit [facility] evaluation + Plan note Future Appointments Appointment Date:12/27/2024 11:20:00 AM Scheduled Provider:LYN MACE PA-C Location:[facility] Appointment Type:URO Complex Office Visit [facility] evaluation + Plan note Future Appointments Appointment Date:12/27/2024 11:20:00 AM Scheduled Provider:LYN MACE PA-C Location:[facility] Appointment Type:URO Complex Office Visit Diagnostic Tests Pending * Urine Culture 11/28/[address] [facility] Evaluation + Plan note Future Appointments Appointment Date:04/24/2025 10:00:00 AM Scheduled Provider:LYN MACE PA-C Location:[facility] Appointment Type:URO Office Visit Appointment Date:05/15/2025 10:00:00 AM Scheduled Provider:LYN MACE PA-C Location:[facility] Appointment Type:URO Office Visit [facility] evaluation + Plan note Future Appointments Appointment Date:05/15/2025 10:00:00 AM Scheduled Provider:LYN MACE PA-C Location:[facility] Appointment Type:URO Office Visit [facility] evaluation + Plan note Future Appointments Appointment Date:06/14/2025 12:30:00 PM Scheduled Provider:Michelle Mahoney PA-C Location:[facility] Appointment Type:URO Office Visit [facility] evaluation note* Diagnosis Lumbar stenosis with neurogenic claudication- Primary Spinal stenosis, lumbar region, with neurogenic claudication Idiopathic hypotension Hypotension, unspecified documented in this encounter [employer] Work Phone: evaluation noteNo [facility] [employer] Other Evaluation note* Diagnosis NO SHOW- Primary documented in this encounter [facility] note* Diagnosis Postlaminectomy syndrome of lumbar region Postlaminectomy syndrome, lumbar region Pain in thoracic spine Spinal cord stimulator status Other postprocedural status [facility] Diagnosis Radiculopathy of lumbar region Thoracic or lumbosacral neuritis or radiculitis, unspecified [facility] Diagnosis Pain in thoracic spine S/P insertion of spinal cord stimulator [facility]* Diagnosis Onset Date Resolution Status Diarrhea acute Incontinence of bowel acute Mucus in stool acute Nausea acute [facility] Work Phone: Evaluation note* Diagnosis Onset Date Resolution Status Diarrhea acute Incontinence of bowel acute Mucus in stool acute Nausea acute Chronic pain syndrome acute Hyperlipidemia acute Hypotestosteronism acute Mucus in stool acute Neurogenic bladder acute Neurogenic bowel acute Suprapubic catheter acute [facility] Work Phone: Evaluation note* Diagnosis Onset Date Resolution Status Diarrhea acute DMII (diabetes mellitus, type 2) acute Frequent headaches acute Mucus in stool acute Parkinsons acute Sepsis acute Suprapubic catheter acute [facility] Work Phone: Evaluation note* Diagnosis Encounter for [...] fluctuating manifestations (CMS-HCC) [facility] Diagnosis Encounter for screening for abdominal aortic aneurysm (AAA) in patient 50 years of age or older with history of smoking- Primary Critical limb ischemia of both lower extremities with gangrene (CMS-HCC) Abdominal aortic aneurysm dissection (CMS-HCC) Dissection of aorta, abdominal Critical limb ischemia of both lower extremities with gangrene (CMS-HCC)- Primary Orthostasis Orthostatic hypotension [facility] Diagnosis Encounter for screening for abdominal aortic aneurysm (AAA) in patient 50 years of age or older with history of smoking- Primary Critical limb ischemia of both lower extremities with gangrene (CMS-HCC) Abdominal aortic aneurysm dissection (CMS-HCC) Dissection of aorta, abdominal Critical limb ischemia of both lower extremities with gangrene (CMS-HCC)- Primary Parkinson's disease (CMS-HCC) Paralysis agitans [facility] ([facility]) Paralysis agitans [facility]* Diagnosis Migraine without aura and without status migrainosus, not intractable [facility] Diagnosis Migraine without aura and without status migrainosus, not intractable [facility] note[facility] assessment information available [facility] Work Phone: Evaluation note* Diagnosis Parkinson's disease Paralysis agitans [facility] Diagnosis Parkinson's disease Paralysis agitans [facility] Diagnosis Critical limb ischemia of both lower extremities with gangrene (CMS-HCC)- Primary [facility] Diagnosis Parkinson's disease without dyskinesia or fluctuating manifestations- Primary Spinal stenosis of lumbar region with neurogenic claudication Anxiety Anxiety state, unspecified [facility] Diagnosis Orthostasis Orthostatic hypotension [facility] Diagnosis Spinal stenosis of lumbar region with neurogenic claudication [facility] of aorta, abdominal [facility] Diagnosis 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) documented in this encounter [facility]* Diagnosis Encounter for [...] with neurogenic claudication documented in this encounter [facility]* Diagnosis Encounter for [...] (CMS-HCC) Paralysis agitans documented in this encounter [facility]* Diagnosis Encounter for screening for abdominal aortic aneurysm (AAA) in patient 50 years of age or older with history of smoking- Primary Critical limb ischemia of both lower extremities with gangrene (CMS-HCC) Abdominal aortic aneurysm dissection (CMS-HCC) Dissection of aorta, abdominal Critical limb ischemia of both lower extremities with gangrene (CMS-HCC)- Primary Orthostasis Orthostatic hypotension documented in this encounter [facility] note* Diagnosis Encounter for [...] migrainosus, not intractable documented in this encounter [facility]* Diagnosis Encounter for [...] with neurogenic claudication documented in this encounter [facility]* Diagnosis Onset Date Resolution Status Admit Date Depression acute December 29 1:14pm Diabetes acute December 29 1:14pm Migraine acute December 29 1:14pm Parkinsons acute December 29 1:14pm Suprapubic catheter acute December 29, 2024 1:14pm [facility] Work Phone: Evaluation note* Diagnosis Encounter for [...] Other cerebellar ataxia documented in this encounter [facility] note* Diagnosis Encounter for [...] with gangrene (CMS-HCC) documented in this encounter [facility]* Diagnosis Encounter for [...] the basal ganglia documented in this encounter [facility]* Diagnosis Encounter for [...] with neurogenic claudication documented in this encounter [facility]* Diagnosis Encounter for [...] Dysphagia, unspecified type documented in this encounter [facility] note* Diagnosis Encounter for [...] headache type- Primary documented in this encounter [facility] N[facility] No data available for this section [facility] Discharge instructions No data available for this section [facility] InstructionsNot on filedocumented in this encounter [facility] SystemInstructionsNot on filedocumented in this encounter [...] available for this section [facility] reason for referral (narrative)* Reason Home physical therap y evaluation and treatment requested. Diagnosis 1 Hypotension, unspeci fied hypotension type (I95.9) Diagnosis 2 Diabetes (E11.9) Diagnosis 3 Parkinsonism (G20) Diagnosis 4 Neuropathy (G62.9) Diagnosis 5 Failed back syndrome (M96.1) Diagnosis 6 Risk for falls (Z91. 81) Referral Organization [facility] Referring Provider First Name Ellen Referring Provider Last Name Michis Referring Provider Specialty Family Prac candice Referred Organization [facility] Referred Address [address] [place], [place],[address] Referred Provider Specialty Physical The rapist Referral Priority Routine [employer] Other Reason for referral (narrative)* Reason Patient is needing i n office consultation for change in stool and nausea. Please call patient with appointment date and time Diagnosis 1 Change in stool (R19 .5) Diagnosis 2 Nausea (R11.0) Referral Organization [facility] Referring Provider First Name Ellen Referring Provider Last Name Leyda Referring Provider Specialty Family Prac candice Referred Organization [facility] Referred Address [address] [place] [address],[address],[phone] Referred Provider Specialty Gastroentero logy Referral Priority Routine [facility] [employer] Other Reason for visit Narrative* Auth/Cert Specialty Diagnoses / Procedures Referred By Contac t Referred To Contact Diagnoses Lumbosacral spinal stenosis LUMBOSACRAL SPINAL STENOSIS Procedures POSTERIOR SEGMENTAL INSTRUMENTATION 3-6 VRT SEG NM INSJ BIOMCHN DEV INTERVERTEBRAL DSC SPC W/ARTHRD NM ALLOGRAFT FOR SPINE SURGERY ONLY MORSELIZED NM ARTHRODESIS COMBINED TQ 1NTRSPC LUMBAR NM ALEGRIA FACETEC/FORAMOT DRG ARTHRD LUMBAR 1 VRT SGM NM ALEGRIA FACETEC/FORAMOT DRG ARTHRD LMBR EA ADDL SGM NM ARTHRODESIS PST/PSTLAT TQ 1NTRSPC EA ADDL NTRSPC L2-S1 DECOMPRESSION L2-S1 POSTERIOR FUSION WITH ILIAC BOLTS, L5-S1 TLIF Frank Reddy MD [address] [place] [address] [place] [address] [employer] [address] [place] [address] Referral ID Status Reason Start Date Expiration Date Visits Re quested Visits Authorized [id number] 1 1 [employer] Phone: Summary Purpose Family History No Family [...] FoundDocuments on File Type Date Recorded 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 Note HNO ID: [id number] Author: Jason Guevara Jr. Service: Orthopaedic Surgery [...] (more content not included)... Note HNO ID: [id number] Author: Judy Jaquez) Bisi Service: ? Author Type: Nurse Manager Test Type: Anesthesia Procedure Notes Filed: 05/03/2020 1:32 PM Note Text: ANESTHESIOLOGY PROCEDURE NOTE Airway General Information Procedure Start Time/Medication Administration: 05/03/2020 12:55 PM Patient location during procedure: OR Staffing SURVEYING TECHNICIAN: Kathleen Mathews Performed by: APRIL Indications and [...] not included)... Procedure Findings Note HNO ID: [id number] Author: Judy Mathews Service: ? Author Type: Nurse Manager Test Type: Anesthesia Procedure Notes Filed: 05/03/2020 1:32 PM Note Text: ANESTHESIOLOGY PROCEDURE NOTE Airway General Information Procedure Start Time/Medication Administration: 05/03/2020 12:55 PM Patient location during procedure: OR Staffing SURVEYING TECHNICIAN: Kathleen JerryDeicer Element Winder MachineSajan Mathews Performed by: SURVEYING TECHNICIAN Indications and Patient Condition Preoxygenated: yes Patient [...] 22.70) Referral Organization [facility] Referring Provider First Name Ellen Referring Provider Last Name Leyda Referring Provider Specialty Family Prac candice Referred Organization [facility] Referred Provider Yifan Gama Referred Address [address] [place] [phone] Referred Provider Specialty Gastroentero logy Referral Priority Routine General Notes Tomeka Hussein 021 10:28:40 AM >Graciela, is this suppose to be urgentVeGraciela farley 08/06/2021 10:49:26 AM > no, sorry must have accidentally made urgent :) Specialty Diagnoses / Procedures Referred By Agustina molina Referred To Contact Rehabilitation Diagnoses Parkinson's disease without dyskinesia or fluctuating manifestations Reena Cervantes APRN-CNP [address] [place], [place] [id number] Referral ID Status Reason Start Date Expiration Date Visits Requested Visits Authorized [id number] Pending Review Specialty Services Required 11/16/2023 11/15/2024 1 1 Specialty Diagnoses / Procedures Referred By Agustina molina Referred To Contact Speech Pathology Diagnoses Parkinson's disease without dyskinesia or fluctuating manifestations Reena Cervantes, REGAN [address] [place] [address] Referral ID Status Reason Start Date Expiration Date Visits Requested Visits Authorized [id number] Pending Review Specialty Services Required 11/16/2023 11/15/2024 1 1 Specialty Diagnoses / Procedures Referred By Contac t Referred To Contact Diagnoses Critical limb ischemia of both lower extremities with gangrene ([facility]) Procedures Vas art doppler lwr bilat mult lev/PVR Heidy Marin MD [address], [address] [address] Referral ID Status Reason Start Date Expiration Date V isits Requested Visits Authorized [id number] Pending Review 01/28/2024 01/27/2025 1 1 Specialty Diagnoses / Procedures Referred By Contac t Referred To Contact Diagnoses Encounter for screening for abdominal aortic aneurysm (AAA) in patient 50 years of age or older with history of smoking Abdominal aortic aneurysm dissection ([facility]) Procedures Vas aorta/iliac duplex complete Heidy Marin MD [address], [address] [address] Referral ID Status Reason Start Date Expiration Date V isits Requested Visits Authorized [id number] Pending Review 01/28/2024 01/27/2025 1 1 Health Concerns Infection Onset Date Last Indicated Resolved Time COVID-19 Confirmed Comment:20 day 11/26/22: Pt requiring HiFlo from 2 L svitlana MARIOadjeri started 11/20/2022 11/20/2022 Chief Complaint and Reason [...] bowel Suprapubic catheter Chief Complaint Amb Documentation hospital/[place] follow up Reason for Visit Diarrhea DMII [...] section and content) DATE CREATED AUTHOR 04/09/2018 [facility] DATE CREATED AUTHOR AUTHOR'S ORGANIZ ATION 04/14/2018 [facility] DATE CREATED AUTHOR AUTHOR'S ORGANIZ ATION 04/14/2018 [facility] DATE CREATED AUTHOR AUTHOR'S ORGANIZ ATION 05/12/2020 [facility] DATE CREATED AUTHOR AUTHOR'S ORGANIZ ATION 09/17/2020 [facility] DATE CREATED AUTHOR AUTHOR'S ORGANIZ ATION 08/18/2021 [facility] DATE CREATED AUTHOR AUTHOR'S ORGANIZ ATION 09/10/2021 [facility] DATE CREATED AUTHOR AUTHOR'S ORGANIZ ATION 02/23/2022 [facility] DATE CREATED AUTHOR AUTHOR'S ORGANIZ ATION 12/15/2022 [facility] DATE CREATED AUTHOR AUTHOR'S ORGANIZ ATION 12/26/2022 [facility] DATE CREATED AUTHOR AUTHOR'S ORGANIZ ATION 03/29/2023 [facility] DATE CREATED AUTHOR AUTHOR'S ORGANIZ ATION 04/08/2024 [facility] DATE CREATED AUTHOR AUTHOR'S ORGANIZ ATION 04/24/2024 [facility] DATE CREATED AUTHOR AUTHOR'S ORGANIZ ATION 07/02/2024 [facility] DATE CREATED AUTHOR AUTHOR'S ORGANIZ ATION 10/02/2024 [facility] DATE CREATED AUTHOR AUTHOR'S ORGANIZ ATION 10/31/2024 [facility] DATE CREATED AUTHOR AUTHOR'S ORGANIZ ATION 12/04/2024 [facility] DATE CREATED AUTHOR AUTHOR'S ORGANIZ ATION 12/29/2024 [facility] DATE CREATED AUTHOR AUTHOR'S ORGANIZ ATION 02/20/2025 [facility] DATE CREATED AUTHOR AUTHOR'S ORGANIZ ATION 03/17/2025 [facility] DATE CREATED AUTHOR AUTHOR'S ORGANIZ ATION 03/18/2025 [facility] DATE CREATED AUTHOR AUTHOR'S ORGANIZ ATION 04/04/2025 [facility] DATE CREATED AUTHOR AUTHOR'S ORGANIZ ATION 06/13/2025 [facility] DATE CREATED AUTHOR AUTHOR'S ORGANIZ ATION 06/14/2025 [facility] Source Comments (unrecognize d section and content) In the event this informatio n is protected by the Federal Confidentiality of Alcohol and Drug Abuse Patient Records regulations: The Federal rules restrict any use of the information to criminally investigate or prosecute any alcohol or drug abuse patient.[facility] the event this information is protected by the Federal Confidentiality of Alcohol and Drug Abuse Patient Records regulations: The Federal rules restrict any use of the information to criminally investigate or prosecute any alcohol or drug abuse patient.[facility] Hospital[facility] the event this information is protected by the Federal Confidentiality of Alcohol and Drug Abuse Patient Records regulations: The Federal rules restrict any use of the information to criminally investigate or prosecute any alcohol or drug abuse patient.[facility] Hospital[facility] the event this information is protected by the Federal Confidentiality of Alcohol and Drug Abuse Patient Records regulations: The Federal rules restrict any use of the information to criminally investigate or prosecute any alcohol or drug abuse patient.[facility] Hospital[facility] the event this information is protected by the Federal Confidentiality of Alcohol and Drug Abuse Patient Records regulations: The Federal rules restrict any use of the information to criminally investigate or prosecute any alcohol or drug abuse patient.[facility] Hospital[facility] the event this information is protected by the Federal Confidentiality of Alcohol and Drug Abuse Patient Records regulations: The Federal rules restrict any use of the information to criminally investigate or prosecute any alcohol or drug abuse patient[facility] Reason for Visit (unrecogniz ed section [...] Reason Onset Date Comments Med Refill 04/04/2025 Reason Onset Date Comments New Patient 06/06/2025 Care Teams (unrecognized sec tion and content) Incident Handler Relationship Specialty Start Date End Date Ellen Crabtree [address] [place] [phone] PCP - General 06/10/02 Incident Handler Relationship Specialty Start Date End Date Ellen Crabtree DO PCP - General Family Medicine 01/23/22 Incident Handler Relationship Specialty Start Date End Date Ellen Crabtree [address] [place], [place] [phone] PCP - General 06/10/02 Incident Handler Relationship Specialty Start Date End Date Ellen Crabtree [address] [place] [phone] PCP - General 06/10/02 Incident Handler Relationship Specialty Start Date End Date Ellen Crabtree [address] [place] [phone] PCP - General 06/10/02 Incident Handler Relationship Specialty Start Date End Date Ellen Crabtree [address] [place] [phone] PCP - General 06/10/02 Incident Handler Relationship Specialty Start Date End Date Ellen Crabtree [address] [place] [phone] PCP - General 06/10/02 Team Status: Active Member Role Status Dates Samira Bowden Specialist Active Ren Watson MD Specialist Active Graciela Macias LPN Care Manager Active Fidel Ibarra MD Specialist Active Ellen Crabtree DO Primary Care Provider Active Team Status: Inactive Member Role Status Aneta Crabtree DO Attending Provider Active Start: November [...] June 21, 2024 End: June 21, 2024 Incident Handler Relationship Specialty Start Date End Date Ellen Crabtree DO [address] [place], [place] [phone] PCP - General Family Medicine 01/17/21 Incident Handler Relationship Specialty Start Date End Date Ellen Crabtree DO [address] [place], [place] [phone] PCP - General Family Medicine 01/17/21 Incident Handler Relationship Specialty Start Date End Date Ellen Crabtree DO [address] [place] [address] PCP - General Family Medicine 01/17/21 Incident Handler Relationship Specialty Start Date End Date Ellen Crabtree DO [address] [place], [place] [phone] PCP - General Family Medicine 01/17/21 Incident Handler Relationship Specialty Start Date End Date Ellen Crabtree DO [address] [place] [address] PCP - General Family Medicine 01/17/21 Incident Handler Relationship Specialty Start Date End Date Ellen Crabtree DO [address] [place] [phone] PCP - General Family Medicine 01/17/21 Incident Handler Relationship Specialty Start Date End Date Ellen Crabtree DO [address] [place] [phone] PCP - General Family Medicine 01/17/21 [...] November 28, 2024 End: November 28, 2024 Incident Handler Relationship Specialty Start Date End Date Ellen Crabtree DO [address] [place] [phone] PCP - General Family Medicine 01/17/21 Incident Handler Relationship Specialty Start Date End Date Ellen Crabtree DO [address] [place] [phone] PCP - General Family Medicine 01/17/21 Incident Handler Relationship Specialty Start Date End Date Ellen Crabtree DO [address] [place] [phone] PCP - General Family Medicine 01/17/21 Incident Handler Relationship Specialty Start Date End Date Ellen Crabtree DO [address] [place] [phone] PCP - General Family Medicine 01/17/21 Incident Handler Relationship Specialty Start Date End Date Ellen Crabtree DO [address] [place], [place] [phone] PCP - General Family Medicine 01/17/21 Incident Handler Relationship Specialty Start Date End Date Ellen Crabtree DO [address] [place], [place] [phone] PCP - General Family Medicine 01/17/21 Incident Handler Relationship Specialty Start Date End Date Ellen Crabtree DO [address] [place], [place] [phone] PCP - General Family Medicine 01/17/21 Incident Handler Relationship Specialty Start Date End Date Ellen Crabtree DO PCP - General Family Medicine 01/17/21 Incident Handler Relationship Specialty Start Date End Date Ellen Crabtree DO PCP - General Family Medicine 01/17/21 Incident Handler Relationship Specialty Start Date End Date Ellen Crabtree DO PCP - General Family Medicine 01/17/21 Incident Handler Relationship Specialty Start Date End Date Ellen Crabtree DO [address] [place] [address] PCP - General Family Medicine 01/17/21 Team Status: Active Member Role Status Dates Samira Bowden Specialist Active Ren Watson MD Specialist Active Graciela Veverka , sign builder supervisor Active Fidel Ibarra MD Specialist Active Bernice [...] Fidel Ibarra MD Specialist Active Bernice Shrestha , DO Specialist Active Twyla Marin MD Specialist [...] February 15, 2025 End: February 15, 2025 Incident Handler Relationship Specialty Start Date End Date Ellen Crabtree DO [address] [place] [address] PCP - General Family Medicine 01/17/21 Incident Handler Relationship Specialty Start Date End Date Ellen Crabtree DO [address] [place] [phone] PCP - General Family Medicine 01/17/21 Incident Handler Relationship Specialty Start Date End Date Ellen Crabtree DO [address] [place] [address] PCP - General Family Medicine 01/17/21 Incident Handler Relationship Specialty Start Date End Date Ellen Crabtree DO [address] [place] [address] PCP - General Family Medicine 01/17/21 Incident Handler Relationship Specialty Start Date End Date Ellen Crabtree DO [address] [place] [address] PCP - General Family Medicine 01/17/21 Incident Handler Relationship Specialty Start Date End Date Ellen Crabtree DO [address] [place] [address] PCP - General Family Medicine 01/17/21 Ordered [...] 2109 (Given - Provider: Peace Sol RN) 2019 [...] RCP) 0818 (Given - Provider: Iveth Noe RCP)182 (Given - Provider: Vickey Boykin RCP) 0845 [...] reorder) on Thu02/07/22 at 2100, Until Discontinued 857 (Given - Provider: Malik De La Garza [...] [place] RN - Reason: Loss of IV access)2099 (Due) tolterodine (DETROL LA) extended release capsule [...] 0856 (Given - Provider: Malik De La Garza, ALFONSO)2111 (Given - Provider: Peace Sol RN) dextrose [...] Sol, RN)1346 (Given - Provider: Marion Sharma, ALFONSO)2004 [...] Sol, RN)1346 (See Alternative - Provider: Marion Sharma, [...] BE BASED ON THE PRIMARY CLINICAL RECORDS. [employer] provides no warranty or guarantee of the accuracy or completeness of information in this document.
--- OUTSIDE RECORDS SUMMARY | 2025-06-15 00:07 | XMS_ITS | Encounter Summary ---
Author Organization [facility] Address [id number] [address] [place] [address] Care Team Providers Care Supervisor Asphalt Paving Name Role Phone Jaden Crabtree DO Primary Care Provider [phone] Reason for Visit * Reason Onset Date Comments Med Refill 01/08/2023 Encounter Details Date Type Department Care Team (Late st Contact Info) Description 01/08/2023 Refill [facility] [address] [place] [phone] Reena Cervantes, FARRAH-NATHEN [address] [place] [address] [address] [place], [place] [phone] Current moderate episode of major depressive disorder [...] Description 07/26/2025 10:00 AM EDT [facility], A Department of [address] [place] [phone] Lyn Lawton MD [address] [place] [address], [facility] [address] [place], [place] [phone] 09/12/2025 11:00 AM EST Office Visit [facility] Neurology, A Department of [address] [place] [phone] Tony Martin MD [address] [facility] [address] [place] [address] documented as of this encounter Goals Goal [...] documented as of this encounter Care Teams Supervisor Asphalt Paving Relationship Specialty Start Date End Date Jaden Crabtree DO [address] [place] [address] PCP - General Family Medicine 01/17/21 documented as of this encounter
--- OUTSIDE RECORDS SUMMARY | 2025-06-15 00:07 | XMS_ITS | Encounter Summary ---
Author Organization [facility] Address [address] [place] [address] Care Team Providers Care Cosmetic Sales Consultant Name Role Phone Jaden Crabtree Primary Care Provider [phone] Source Comments In the event this information is protected by the Federal Confidentiality of Alcohol and Drug AbusePatient Records regulations: The Federal rules restrict any use of the information to criminally investigate or prosecute any alcohol or drug abuse patient.[facility] Reason for Visit * Reason Comments PHOTOS TAKEN Encounter Details Date Type Department Care Team (Late st Contact Info) Description 10/08/2007 Abstract Plastic Surgery [address] [address] Anup Bergman (Hist) PHOTOS TAKEN Social History [...] Progress Notes * 10/08/2007 9:47 AM EST [id number] DATES OF PHOTOS: 10/08/2007 TAKEN WITH LENS: [...] documented as of this encounter Care Teams Cosmetic Sales Consultant Relationship Specialty Start Date End Date Jaden Crabtree [address] [place] [phone] PCP - General 06/10/02 documented as of this encounter
--- NOTE | 2025-06-15 00:15 | ECG_ITS ---
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
--- NOTE | 2025-06-15 00:17 | ED.GENADUL1 ---
HPI HPI - General Adult General Chief complaint: Abdominal Pain Stated complaint: NAUSEA, VOMITING Time Seen by Provider: 06/14/25 23:56 Mode of arrival: Wheelchair History of Present Illness HPI narrative: This 64-year-old male presents for evaluation of hematemesis with nausea and vomiting that started earlier this evening. He has a remote history of ulcers. He is not on any blood thinners. He did have a pacemaker placed at [facility] approximately 10 days ago. The patient's is the chief historian. She states that his stomach has been bothering him for the past week or so. He has not had any black tarry stools. He has not had any dizziness or syncope. He had a pacemaker placed due to the fact that he had a 4-second pause in his heart rhythm and also was having episodes of syncope/near syncope. He has not had any fever. He also has a suprapubic Ferro catheter. He has chronic lower extremity venous insufficiency. The patient's states that since getting the pacemaker the purple color of his feet has improved. He has a history of Parkinson's disease and uses a motorized wheelchair. He denies being on any blood thinners or taking any NSAIDS. Related Data Home Medications ?Medication ?Instructions ?Recorded ?Confirmed atorvastatin 10 mg tablet 10 mg PO .QHS 08/20/23 07/06/24 carbidopa 25 mg-levodopa 100 mg 3 tab PO DAILY@0600 08/20/23 07/06/24 tablet docusate sodium 100 mg capsule 100 mg PO DAILY PRN constipation 08/20/23 07/06/24 ezetimibe 10 mg tablet 10 mg PO .QHS 08/20/23 07/06/24 midodrine 5 mg tablet 5 mg PO TID 08/20/23 07/06/24 montelukast 10 mg tablet 10 mg PO DAILY 08/20/23 07/06/24 pregabalin 300 mg capsule 300 mg PO BID 08/20/23 07/06/24 tolterodine 4 mg capsule,extended 4 mg PO DAILY 08/20/23 07/06/24 release 24 hr topiramate 100 mg tablet 100 mg PO BID 08/20/23 07/06/24 carbidopa ER 25 mg-levodopa 100 mg 1 tab PO TID 08/21/23 07/06/24 tablet,extended release potassium citrate 15 mEq (1,620 15 meq PO .QHS 08/21/23 07/06/24 mg) tablet,extended release carbidopa 25 mg-levodopa 100 mg 2 tab PO DAILY@1000 04/23/24 07/06/24 tablet (Sinemet) ciclopirox 0.77 % topical cream 1 applic topical BID 04/23/24 07/06/24 venlafaxine 150 mg 150 mg PO DAILY 04/23/24 07/06/24 capsule,extended release 24 hr carbidopa 25 mg-levodopa 100 mg 1 tab PO TID 04/24/24 07/06/24 tablet (Sinemet) duloxetine 60 mg capsule,delayed 60 mg PO .QHS 04/24/24 07/06/24 release (Cymbalta) fludrocortisone 0.1 mg tablet 0.1 mg PO DAILY 04/24/24 07/06/24 midodrine 5 mg tablet 10 mg PO TID 04/24/24 05/16/24 soahgia-sovjndvbdatzq-mwcvuaaz 250 2 tab PO DAILY PRN migraine 05/12/24 07/06/24 mg-250 mg-65 mg tablet (Excedrin headache Migraine) dicyclomine 10 mg capsule 10 mg PO BID 05/12/24 07/06/24 ondansetron HCl 4 mg tablet 4 mg PO Q6H PRN nausea and vomiting 05/12/24 07/06/24 wound dressings (Triad Wound 1 applic topical TID PRN skin 05/12/24 07/06/24 Dressing paste) irritation collagenase clostridium histo. 250 1 applic topical DAILY 07/06/24 07/06/24 unit/gram topical ointment (Santyl) sumatriptan succinate 50 mg tablet 50 mg PO Q2H PRN migraine headache 07/06/24 07/06/24 Previous Rx's ?Medication ?Instructions ?Recorded tramadol 50 mg tablet 50 mg PO Q6H PRN pain 5 days #20 04/27/24 tabs docusate sodium 100 mg capsule 100 mg PO BID #10 caps 06/22/24 (Colace) sulfamethoxazole 800 1 tab PO BID 7 days #14 tabs 06/22/24 mg-trimethoprim 160 mg tablet (Bactrim DS) tramadol 50 mg tablet 50 mg PO Q6H PRN pain 2 days #8 06/22/24 tabs ijelhxttsz-moksjkkndjjwi-fofwxbez 1 cap PO Q6H PRN headache #12 caps 07/06/24 50 mg-300 mg-40 mg capsule (Fioricet) cefdinir 300 mg capsule 300 mg PO BID 7 days #14 caps 07/06/24 ondansetron 4 mg disintegrating 4 mg PO Q6H PRN nausea and 07/06/24 tablet vomiting #12 tabs ciprofloxacin HCl 500 mg tablet 500 mg PO BID #14 tabs 12/13/24 (Cipro) hydrocodone 5 mg-acetaminophen 325 1 tab PO Q6H PRN pain 5 days #14 06/02/25 mg tablet tabs ondansetron 4 mg disintegrating 4 mg PO Q6H PRN nausea and 06/02/25 tablet vomiting #20 tabs Allergies Allergy/AdvReac Type Severity Reaction Status Date / Time clonazepam Allergy Severe Difficulty Verified 06/15/25 00:09 Breathing levofloxacin (From Levaquin) Allergy Severe Difficulty Verified 06/15/25 00:09 Breathing moxifloxacin Allergy Intermediate Hives Verified 06/15/25 00:09 celecoxib (From Celebrex) Allergy Mild Hives Verified 06/15/25 00:09 erythromycin base Allergy Mild Gastrointestinal Verified 06/15/25 00:09 Upset Opioid HPI Opioid Management Most Recent Opioid Data: Last Pain Scale 8 Today, 03:40 Last Pain Intensity 5 04/25/24, 09:14 Last MAR Pain Assessment Today, 03:40 Last ORT Total Score 0 04/23/24, 20:47 Last ORT Risk Category Low Risk 04/23/24, 20:47 Review of Systems ROS Status of ROS 10 or more systems reviewed and unremarkable except as noted in history and below [facility] Medical History (Updated 06/15/25 @ 02:27 by Kathi Enrique MD) Hydronephrosis with ureteral calculus ?N13.2 - Hydronephrosis with renal and ureteral calculous obstruction (ICD-10) Anemia in chronic illness ?D63.8 - Anemia in other chronic diseases classified elsewhere (ICD-10) Sacral decubitus ulcer ?L89.159 - Pressure ulcer of sacral region, unspecified stage (ICD-10) 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 ?G90.3 - Multi-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 (ICD-10) Type 2 diabetes mellitus with diabetic polyneuropathy ?E11.42 - Type 2 diabetes mellitus with diabetic polyneuropathy (ICD-10) Parkinson disease ?G20.A1 - Parkinson's disease without dyskinesia, without mention of fluctuations (ICD-10) Generalized weakness ?R53.1 - Weakness (ICD-10) Suprapubic catheter ?Z93.59 - Other cystostomy status (ICD-10) COPD (chronic obstructive pulmonary disease) ?J44.9 - Chronic obstructive pulmonary disease, unspecified (ICD-10) Breath shortness ?R06.02 - Shortness of breath (ICD-10) Urinary tract infection ?N39.0 - Urinary tract infection, site not specified (ICD-10) Complication, blocked Ferro catheter ?T83.091A - Other mechanical complication of indwelling urethral catheter, initial encounter (ICD-10) UTI (urinary tract infection) ?N39.0 - Urinary tract infection, site not specified (ICD-10) Bladder infection, chronic ?N30.20 - Other chronic cystitis without hematuria (ICD-10) Weakness of both lower extremities ?R29.898 - Other symptoms and signs involving the musculoskeletal system (ICD-10) Neurogenic bladder ?N31.9 - Neuromuscular dysfunction of bladder, unspecified (ICD-10) Neuropathy ?G62.9 - Polyneuropathy, unspecified (ICD-10) Tonsillectomy planned FH: bilateral hip replacements ?Z82.69 - Family history of other diseases of the musculoskeletal system and connective tissue (ICD-10) Enlarged prostate ?N40.0 - Benign prostatic hyperplasia without lower urinary tract symptoms (ICD-10) 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, unspecified (ICD-10) 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 - Malignant (primary) neoplasm, unspecified (ICD-10) Esophageal cancer ?C15.9 - Malignant neoplasm of esophagus, unspecified (ICD-10) Barretts esophagus ?K22.70 - Rust's esophagus without dysplasia (ICD-10) GERD without esophagitis ?K21.9 - Gastro-esophageal reflux disease without esophagitis (ICD-10) Asthma ?J45.909 - Unspecified asthma, uncomplicated (ICD-10) Pneumonia ?J18.9 - Pneumonia, unspecified organism (ICD-10) COVID-19 ?U07.1 - COVID-19 (ICD-10) Kidney stones ?N20.0 - Calculus of kidney (ICD-10) Bladder stones ?N21.0 - Calculus in bladder (ICD-10) Type 2 diabetes mellitus ?E11.9 - Type 2 diabetes mellitus without complications (ICD-10) Hypotension ?I95.9 - Hypotension, unspecified (ICD-10) Surgical History (Updated 08/06/23 @ 08:15 by Jorge Contreras) H/O cystoscopy ?Z98.890 - Other specified postprocedural states (ICD-10) S/P insertion of spinal cord stimulator ?Z96.89 - Presence of other specified functional implants (ICD-10) Status post right rotator cuff repair ?Z98.890 - Other specified postprocedural states (ICD-10) H/O hand surgery ?Z98.890 - Other specified postprocedural states (ICD-10) History of left knee replacement ?Z96.652 - Presence of left artificial knee joint (ICD-10) History of left shoulder replacement ?Z96.612 - Presence of left artificial shoulder joint (ICD-10) Previous back surgery ?Z98.890 - Other specified postprocedural states (ICD-10) H/O gastric bypass ?Z98.84 - Bariatric surgery status (ICD-10) Family History (Updated 08/20/23 @ 20:33 by Barbara Mauro RN) Mother Family history of hypertension Family history of diabetes mellitus Family history of COPD (chronic obstructive pulmonary disease) Brother Family history of cancer Other Family history of CHF (congestive heart failure) Social History Within the past year, how often did you have a drink containing alcohol: never Within the past year, how often did you have six or more drinks on one occasion: never Score interpretation: A score less than 4 is consistent with normal alcohol consumption. Smoking status: Former smoker Highest level of school completed/degree received: some college, no degree Are you now , , , , never or living with a partner: In a typical week, how many times do you talk on the telephone with family, friends, or neighbors: 3 or more times per week How often do you get together with friends or relatives: 3 or more times per week Little interest or pleasure in doing things: not at all Feeling down, depressed, or hopeless: not at all Feel stressed/tense/nervous/anxious/difficulty sleeping: to some extent Do you think of yourself as: straight/heterosexual Gender Identity: male Exam Narrative Exam Narrative: Vital signs and Nursing Notes reviewed: Patient is afebrile with a normal pulse, blood pressure is low at 85/61, he is not hypoxic with pulse ox of 97% on room air General: Alert, nontoxic but pale and acutely ill-appearing obese adult male, GCS 15, he is actively vomiting blood with clots, no respiratory distress HEENT: Normocephalic atraumatic, mucous membranes are moist and pink, eyes are clear, normal conjunctiva, vision is grossly intact Neck: Supple, no meningeal signs, no anterior or posterior cervical lymphadenopathy Chest: Lungs are clear to auscultation with good air entry, there is no wheezing rhonchi or rales appreciated no accessory muscle use, patient is speaking in complete sentences-no chest wall tenderness to palpation CVS: Regular rate and rhythm S1-S2, no murmurs rubs or gallops, pulses are brisk and equal bilaterally ABD: Obese, soft, generalized abdominal tenderness with no rebound guarding or rigidity, bowel sounds are normal, no pulsatile masses appreciated Extremities: Chronic changes of vascular insufficiency with violaceous color to both feet and sores on the ends of several toes specifically on the left foot Skin: Pale, diaphoretic, violaceous color to both feet Neuro: No focal deficits Constitutional Vital Signs, click to edit/add: Last Vital Signs Temp 98.4 F 06/15/25 02:58 Pulse 73 06/15/25 03:46 Resp 8 L 06/15/25 03:46 BP 116/81 06/15/25 03:46 Pulse Ox 88 L 06/15/25 03:46 O2 Del Method Room Air 06/15/25 00:02 Course Vital Signs Vital signs: Vital Signs Temperature 97.6 F 06/15/25 00:02 Pulse Rate 89 06/15/25 00:02 Respiratory Rate 20 06/15/25 00:02 Blood Pressure 85/61 L 06/15/25 00:02 Pulse Oximetry 97 06/15/25 00:02 Oxygen Delivery Method Room Air 06/15/25 00:02 Temperature 98.4 F 06/15/25 02:58 Pulse Rate 73 06/15/25 03:46 Respiratory Rate 8 L 06/15/25 03:46 Blood Pressure 116/81 06/15/25 03:46 Pulse Oximetry 88 L 06/15/25 03:46 Oxygen Delivery Method Room Air 06/15/25 00:02 Medical Decision Making MDM Narrative Medical decision making narrative: This 64-year-old male was brought to the emergency department by his for evaluation of upper GI bleeding. The patient is not on any blood thinners and does not take any NSAIDs. He does have a history of Rust's esophagus and a history of ulcers in the past. 10 days or so he had a pacemaker placed due to episodes of syncope and a 4-second pause and his cardiac rhythm. He has not been placed on any blood thinner since that time. Upon arrival he was pale, diaphoretic and actively vomiting dark blood with clots. Complains of nausea associated with this but does not have any specific abdominal pain. He has not had any melanotic stool. Upon arrival he was noted to be hypotensive and 2 IVs were placed. He was given IV fluids, Zofran, Pepcid and Protonix. He continued to have nausea and some bleeding and was given Phenergan for his nausea. EKG done upon arrival was a sinus rhythm at 86 bpm. He was given IV fluids with clinical improvement in his blood pressure. His initial white count is 13.8 with a hemoglobin of 10.1. Lactic acid is elevated at 3.3. Troponin is normal. PT/INR normal. Electrolytes are normal with an elevated BUN/creatinine compared to 2 weeks ago at 32 and 1.14. Repeat blood work was ordered approximately 2 hours after his arrival. His hemoglobin dropped from 10.1 to 6.3 with a hematocrit of 20.4. CTA abd/pelvis ordered and pending. Patient's consented for blood transfusion and 2 units of packed red blood cells were ordered. He was also given IV octreotide and an octreotide drip was started. Case was discussed with Khushbu at [facility] and he is accepted for transfer to [facility] ICU under the service of Dr Woodard. He will be transferred via [facility] due to the critical nature of his illness and potential for acute decline. Patient and are both in agreement with this plan. Medical Records Medical records reviewed: Yes I reviewed the patient's medical records Lab Data Lab results reviewed: Yes I reviewed the patient's lab results Labs: Lab Results 06/15/25 06/15/25 Range/Units 00:22 02:09 WBC 13.8 H 8.9 (4.0-11.0) 10^3/uL RBC 3.71 L 2.25 L (4.70-6.10) 10^6/uL Hgb 10.1 L 6.3 L* D (14.0-18.0) g/dL Hct 33.0 L 20.4 L* (42.0-54.0) % MCV 88.9 90.7 (80.0-94.0) fL MCH 27.2 28.0 (25.9-34.0) pg MCHC 30.6 30.9 (29.9-35.2) g/dL RDW 15.1 H 15.2 H (11.0-15.0) % Plt Count 240 148 L (150-450) 10^3/uL MPV 13.2 13.2 (9.5-13.5) fL Neut % (Auto) 75.3 H 81.0 H (43.0-75.0) % Lymph % (Auto) 17.3 L 12.3 L (20.5-60.0) % [place] % (Auto) 4.0 5.3 (1.7-12.0) % Eos % (Auto) 2.6 0.9 (0.9-7.0) % Baso % (Auto) 0.4 0.2 (0.2-2.0) % Neut # (Auto) 10.4 H 7.2 H (1.4-6.5) 10^3/uL Lymph # (Auto) 2.4 1.1 L (1.2-3.8) 10^3/uL [place] # (Auto) 0.6 0.5 (0.3-0.8) 10^3/uL Eos # (Auto) 0.4 0.1 (0.0-0.7) 10^3/uL Baso # (Auto) 0.1 0.0 (0.0-0.1) 10^3/uL Abs Immat Gran (auto) 0.06 H 0.03 (0.00-0.03) 10^3/uL Imm/Tot Granulo (auto) 0.4 0.3 (0.0-0.5) % PT 11.5 (9.0-11.6) sec INR 1.09 Sodium 144 (136-145) mmol/L Potassium 4.3 (3.5-5.1) mmol/L Chloride 110 H (98-107) mmol/L Carbon Dioxide 26.3 (21.0-32.0) mmol/L Anion Gap 12.0 BUN 32.0 H (7.0-18.0) mg/dL Creatinine 1.14 (0.70-1.30) mg/dL Est GFR ( Amer) >60 (>=60 mL/min/1.73m^2) Est GFR (Non-Af Amer) >60 (>=60 mL/min/1.73m^2) BUN/Creatinine Ratio 28.1 Glucose 143 H (74-106) mg/dL Lactate 3.3 H* 0.8 (0.4-2.0) mmol/L Calcium 8.9 (8.5-10.1) mg/dL Total Bilirubin 0.4 (0.2-1.0) mg/dL AST 14 L (15-37) U/L ALT 11 L (16-63) U/L Alkaline Phosphatase 162 H (46-116) U/L Troponin I High Sens 8.4 (4.0-76.1) pg/mL Total Protein 6.9 (6.4-8.2) g/dL Albumin 2.6 L (3.4-5.0) g/dL Globulin 4.3 g/dL Albumin/Globulin Ratio 0.6 Blood Type A Negative Antibody Screen Negative Crossmatch See Detail ECG Data Attestation: I personally reviewed and interpreted this ECG as follows: (Interpretation limited by patient movement, sinus rhythm at 86 bpm, I do not appreciate pacer spikes) Critical Care Time Critical Care Time Critical Care Time: Yes Total Critical Care Time: 40 Attestation: This patient presents for evaluation of upper GI bleeding with hypotension. Due to the high probability of sudden and clinically significant deterioration in his condition he required the highest level of my preparedness to intervene. I provided critical care time including documentation time, medication orders and management, reevaluation, vital sign assessment, ordering and reviewing of lab test, ordering and reviewing of x-ray studies, consultation with transfer center and hospitalist physicians. Administration of blood products, octreotide and continual critical care assessment. Aggregate critical care time is 40 minutes including only time during which I was engaged in work related to his care and did not include time spent treating other patients simultaneously Discharge Plan Discharge Chief Complaint: Abdominal Pain Clinical Impression: Acute upper gastrointestinal bleeding, Anemia due to gastrointestinal blood loss Patient Disposition: [facility] Time of Disposition Decision: 04:20 Discharge Location: [facility] Condition: Serious Mode of Transportation: [facility]
[2025-06-15 00:29] LABS: Hematocrit 33.0 % (42.0-54.0); Hemoglobin 10.1 g/dL (14.0-18.0); Immature Granulocytes Abs Auto 0.06 10^3/uL (0.00-0.03); Immature Granulocytes Pct Auto 0.4 % (0.0-0.5); Lymphocytes Absolute Auto 2.4 10^3/uL (1.2-3.8); Mean Corpuscular HGB Conc 30.6 g/dL (29.9-35.2); Mean Corpuscular Hemoglobin 27.2 pg (25.9-34.0); Mean Corpuscular Volume 88.9 fL (80.0-94.0); Platelet Count 240 10^3/uL (150-450); Red Blood Count 3.71 10^6/uL (4.70-6.10); White Blood Count 13.8 10^3/uL (4.0-11.0)
[2025-06-15] MEDS: FAMOTIDINE/PF 20 MG/2 ML VIAL 40 MG IV (00:34)
[2025-06-15] MEDS: 0.9 % SODIUM CHLORIDE 1,000 ML 1000 ML IV (00:34)
[2025-06-15] MEDS: PANTOPRAZOLE SODIUM 40 MG VIAL IV (00:35)
[2025-06-15 00:45] LABS: Alanine Aminotransferase 11 U/L (16-63); Albumin Globulin Ratio 0.6; Albumin Level 2.6 g/dL (3.4-5.0); Alkaline Phosphatase 162 U/L (46-116); Anion Gap 12.0; Aspartate Amino Transferase 14 U/L (15-37); Blood Urea Nitrogen 32.0 mg/dL (7.0-18.0); Calcium 8.9 mg/dL (8.5-10.1); Carbon Dioxide 26.3 mmol/L (21.0-32.0); Chloride 110 mmol/L (98-107); Estimated GFR (African America >60 (>=60 mL/min/1.73m^2); Estimated GFR (Non-African Ame >60 (>=60 mL/min/1.73m^2); Globulin 4.3 g/dL; Glucose 143 mg/dL (74-106); Potassium 4.3 mmol/L (3.5-5.1); Sodium 144 mmol/L (136-145); Total Protein 6.9 g/dL (6.4-8.2)
[2025-06-15 00:46] LABS: INR 1.09; Prothrombin Time 11.5 sec (9.0-11.6)
[2025-06-15 00:49] LABS: Lactate/Lactic Acid 3.3 mmol/L (0.4-2.0)
--- NOTE | 2025-06-15 01:11 | PC.NURSE ---
Pt arrives with a Ferro cath in place
--- NOTE | 2025-06-15 01:13 | PC.NURSE ---
Pt has very dusky, purple, cool feet and lower legs. There are several scabbed over ulcers to the toes. Pt and state that he is being followed by vascular for this.
[2025-06-15] MEDS: PROMETHAZINE HCL 25 MG/ML VIAL 12.5 MG IM (02:00)
[2025-06-15] MEDS: 0.9 % SODIUM CHLORIDE 1,000 ML 150 ML IV (02:18)
[2025-06-15 02:20] LABS: Immature Granulocytes Abs Auto 0.03 10^3/uL (0.00-0.03); Immature Granulocytes Pct Auto 0.3 % (0.0-0.5); Lymphocytes Absolute Auto 1.1 10^3/uL (1.2-3.8); Mean Corpuscular HGB Conc 30.9 g/dL (29.9-35.2); Mean Corpuscular Hemoglobin 28.0 pg (25.9-34.0); Mean Corpuscular Volume 90.7 fL (80.0-94.0); Platelet Count 148 10^3/uL (150-450); Red Blood Count 2.25 10^6/uL (4.70-6.10); White Blood Count 8.9 10^3/uL (4.0-11.0)
[2025-06-15 02:21] LABS: Hematocrit 20.4 % (42.0-54.0); Hemoglobin 6.3 g/dL (14.0-18.0)
[2025-06-15 02:42] LABS: Lactate/Lactic Acid 0.8 mmol/L (0.4-2.0)
[2025-06-15] MEDS: FENTANYL CITRATE/PF 100 MCG/2 ML VIAL 25 MCG IV (03:40)
[2025-06-15] MEDS: OCTREOTIDE ACETATE 100 MCG/ML VIAL IV (03:44)
[2025-06-15] MEDS: FUROSEMIDE 40 MG/4 ML VIAL 20 MG IV (04:34)
--- NOTE | 2025-06-15 05:17 | PC.NURSE ---
At 0440, [facility] crew arrives. Report given to them per Dr Enrique. The second unit of PRBCs was obtained just prior to flight's arrival. This unit was offered to the RN with report in regards to HGB and VS. Crew refused to take the second unit, so this was sent back to lab. MD christina.
== END 2025-06-15 04:45 | disposition short-term general hospital (02) ==
PROVIDERS: Emergency Provider Emergency Medicine; PCP Family Medicine
DX: K92.2 Gastrointestinal hemorrhage, unspecified (principal); Z95.0 Presence of cardiac pacemaker; I87.2 Venous insufficiency (chronic) (peripheral); G20.A1 Parkinson's disease without dyskinesia, without mention of fluctuations; Z99.3 Dependence on wheelchair; Z96.652 Presence of left artificial knee joint; Z96.612 Presence of left artificial shoulder joint; Z98.84 Bariatric surgery status; Z87.891 Personal history of nicotine dependence; D50.0 Iron deficiency anemia secondary to blood loss (chronic)
CPT/HCPCS: 36415; 36430; 71045; 74174; 80053; 83605; 84484; 85025; 85610; 86850; 86900; 86901; 86923; 93005; 96361; 96365; 96372; 96375; 96376; 99285; J1938; J2354; J2405; J2550; J3010; J3490; P9016; Q9967

== ENCOUNTER 2025-07-24 14:35 | Outpatient (REF) | payer MEDICARE, OTHER, SELFPAY ==
--- OUTSIDE RECORDS SUMMARY | 2025-07-24 14:39 | XMS_ITS | Encounter Summary ---
Author Organization [facility] Address [address] [place] [address] Phone Care Team Providers Care Certified Health Education Specialist Name Role Phone Jaden Crabtree DO Primary Care Provider [phone] Encounter Details Date Type Department Care Team (Late st Contact Info) Description 09/20/2023 Patient Risk Score ACO Care Management [address] [facility] [address] [place] [address] Social History Tobacco Use Types [...] on filedocumented in this encounter Care Teams Certified Health Education Specialist Relationship Specialty Start Date End Date Jaden Crabtree DO PCP - General 08/16/21 documented as of this encounter
--- OUTSIDE RECORDS SUMMARY | 2025-07-24 14:39 | XMS_ITS | Encounter Summary ---
Author Organization [facility] Address [address] [place] [address] Care Team Providers Care Medical Affairs Leader Name Role Phone Jaden Crabtree Primary Care Provider [phone] Source Comments In the event this information is protected by the Federal Confidentiality of Alcohol and Drug AbusePatient Records regulations: The Federal rules restrict any use of the information to criminally investigate or prosecute any alcohol or drug abuse patient.[facility] Encounter Details Date Type Department Care Team (Late st Contact Info) Description 06/16/2016 Abstract Gastroenterology [address] [id number] Bhupendra Barajas MD [address] [place] [address] Social History Tobacco Use Types Packs/Day Years [...] documented as of this encounter Care Teams Medical Affairs Leader Relationship Specialty Start Date End Date Jaden Crabtree [address] [place] [id number] PCP - General 06/10/02 documented as of this encounter
--- OUTSIDE RECORDS SUMMARY | 2025-07-24 14:39 | XMS_ITS | Encounter Summary ---
[facility] Address [id number] [address] 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 ([facility]) Social History Tobacco Use Types Packs/Day [...] 10:00 AM EDT [facility] Visit [facility] Department of [address] [place] [phone] Lyn Lawton MD [address] [facility], [place] [address] [place] [address] 09/12/2025 11:00 AM EST Office Visit [facility] Department of [place] [id number] [facility] [address] [place] [phone] [place] [address] [place] [address], [place] [address] [place] [address] documented as of this encounter Goals Goal [...] ischemia of left lower extremity with gangrene ([facility]) documented in this encounter Additional Health Concerns Assessment Noted Time PHQ-9 Depression Total Score: 21 024 11:29 AM EST A Body Mass Index follow-up plan has been documented for the patient 10/07/2024 3:14 PM EST documented as of this encounter Care Teams Gore Maker Relationship Specialty Start Date End Date Jaden Crabtree DO [address] [place] [id number] PCP - General Family Medicine 01/17/21 documented as of this encounter
--- OUTSIDE RECORDS SUMMARY | 2025-07-24 14:39 | XMS_ITS | Encounter Summary ---
Author Organization [facility] Address [address] [place] [address] Care Team Providers Care Store Clerk Name Role Phone Unavailable Primary Care Provider Unavailabl e Encounter Details Date Type Department Care Team (Late st Contact Info) Description 03/10/2024 Clinisync Result Encounter [facility] External Department Unsolicited Tracey Marin MD [address], [place] [id number] Social History Tobacco Use Types Packs/Day Years [...] EDT Narrative 03/10/2024 1:04 PM EDT The [address] [address] Vein Report Signed Patient: ALISIA CORREA MR#: [id number] : 1960 Acct:[id number] Age/Sex: 63 / M ADM Date: 03/10/24 Loc: [facility] Attending Dr: Tracey Marin M.D. Ordering Physician: Tracey Marin M.D. Date of Service: 03/10/24 Procedure(s): [facility] SEGMENTAL PRESSURES Accession Number(s): [id number] cc: ELLEN ARIAS ; Tracey Marin M.D. The [place] [id number] Patient Name: ALISIA CORREA MRN: [id number] date: 1960 Sex: M Assigned Patient Location: Current Patient Location: [facility] Accession/Order Number: [id number] Exam Date: 03/10/2024 10:11 Report Date: 03/10/2024 [...] 177. Calf: 150, 150. DPA: 123, 147. SUPERVISOR HANGING AND TRIMMING: 138, 147. 1st Toe: 77, 59 ANUJA: [...] Signed By: 03/10/24 1304 DD/ 1301 TD/TT: Rope Machine Setter: Procedure Note Radiology, Radiologist, - 03/10/2024 [place] [address] Vein Report Signed Patient: ALISIA CORREA LMR#: [id number] : 1960cct:[id number] Age/Sex: 63 / MADM Date: 03/10/24 Loc: [facility] Attending Dr: Tracey Marin M.D. Ordering Physician: Tracey Marin M.D. Date of Service: 03/10/24 Procedure(s): VC SEGMENTAL PRESSURES Accession Number(s): [id number] cc: ELLEN ARIAS ; Tracey Marin M.D. [place] [address] Patient Name: ALISIA CORREA MRN: [facility]:[id number] date: 1960 Sex: M Assigned Patient Location: VC Current Patient Location: [facility] Accession/Order Number: [id number] Exam Date: 03/10/2024 10:11 Report Date: 03/10/2024 [...] 177. Calf: 150, 150. DPA: 123, 147. SUPERVISOR HANGING [employer] TRIMMING: 138, 147. 1st Toe: 77, 59 ANUJA: [...] M.D. Signed By:03/10/24 1304 DD/ 1301 TD/TT: Rope Machine Setter: us Tracey Marin MD IMG XR PROCEDURES Final Resu lt documented in this encounter Visit Diagnoses Not on filedocumented in this encounter
--- OUTSIDE RECORDS SUMMARY | 2025-07-24 14:39 | XMS_ITS | Encounter Summary ---
Author Organization [facility] Address [address] [place] [address] Phone Care Team Providers Care Corporate Responsibility Officer Name Role Phone Jaden Crabtree DO Primary Care Provider [phone] Jaden Crabtree DO Unavailable Encounter Details Date Type Department Care Team (Late st Contact Info) Description 04/20/2023 Patient Risk Score AC Care Management [address] [place] [address] Social History Tobacco Use Types [...] on filedocumented in this encounter Care Teams Corporate Responsibility Officer Relationship Specialty Start Date End Date Jaden Crabtree DO PCP - General 08/16/21 Jaden Crabtree DO [address] [place] [address] PCP - MMO Medicare Advantage PCP 02/16/23 09/17/23 documented as of this encounter
--- OUTSIDE RECORDS SUMMARY | 2025-07-24 14:39 | XMS_ITS | Encounter Summary ---
Author Organization [facility] Address [address] [place] [address] Phone Care Team Providers Care Technical Sales Representatives Name Role Phone Jaden Crabtree DO Primary Care Provider [phone] Jaden Crabtree DO Unavailable Encounter Details Date Type Department Care Team (Late st Contact Info) Description 07/25/2021 Orders Only [facility] [address] [place] [address] Conversion, Onbase Social History Tobacco Use Types [...] on filedocumented in this encounter Care Teams Technical Sales Representatives Relationship Specialty Start Date End Date Jaden Crabtree DO PCP - General 08/16/21 Jaden Crabtree DO [address] [place] [address] PCP - MMO Medicare Advantage PCP 02/16/23 09/17/23 documented as of this encounter
--- OUTSIDE RECORDS SUMMARY | 2025-07-24 14:39 | XMS_ITS ---
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
--- OUTSIDE RECORDS SUMMARY | 2025-07-24 14:39 | XMS_ITS | Encounter Summary ---
Author Organization [facility] Address [id number] [address] [place] [address] Care Team Providers Care Rubber Engraver Name Role Phone Jaden Crabtree DO Primary Care Provider [phone] Reason for Visit * Reason Onset Date Comments Speech Therapy 04/13/2025 Encounter Details Date Type Department Care Team (Late st Contact Info) Description 04/13/2025 Telephone [facility], A Department of [facility] [address] [facility] [address] [place] [phone] Zahra Cevallos Speech Therapy Social History Tobacco [...] Zahra Cevallos - 04/13/2025 4:27 PM EDT Car Cleaning Supervisor received a call from patients about getting her a Speech Therapy referral from Dr. Lawton.Caller stated it was reccommended after patients swallow test. Caller stated she would like for speech therapy to be done at home. Callback number is [phone] Please advise, thank you documented in this encounter Plan of Treatment Upcoming Encounters Date Type Department Care Team (Late st Contact Info) Description 07/26/2025 10:00 AM EDT Office Visit [facility], A Department of [address] [place] [phone] Lyn Lawton MD [address] [place] [address], [facility] [address] [place] [address] 09/12/2025 11:00 AM EST Office Visit [facility], A Department of [address] [place] [phone] Tony Martin MD [address] [place] [address], [facility] [address] [place] [address] documented as of this encounter Goals Goal [...] documented as of this encounter Care Teams Rubber Engraver Relationship Specialty Start Date End Date Jaden Crabtree DO [address] [place] [address] PCP - General Family Medicine 01/17/21 documented as of this encounter
--- OUTSIDE RECORDS SUMMARY | 2025-07-24 14:39 | XMS_ITS | Encounter Summary ---
Author Organization [facility] Address [address] [place] [address] Phone Care Team Providers Care Memory Care Director Name Role Phone Jaden Crabtree DO Primary Care Provider [phone] Jaden Crabtree DO Unavailable Encounter Details Date Type Department Care Team (Late st Contact Info) Description 07/21/2023 Patient Risk Score AC Care Management [address] [place] [address] Social History Tobacco Use Types [...] on filedocumented in this encounter Care Teams Memory Care Director Relationship Specialty Start Date End Date Jaden Crabtree DO PCP - General 08/16/21 Jaden Crabtree DO [address] [place] [address] PCP - MMO Medicare Advantage PCP 02/16/23 09/17/23 documented as of this encounter
--- OUTSIDE RECORDS SUMMARY | 2025-07-24 14:39 | XMS_ITS | Encounter Summary ---
Author Organization [facility] Address [address] [place] [address] Phone Care Team Providers Care Paperback Machine Operator Name Role Phone Jaden Crabtree DO Primary Care Provider Jaden Crabtree DO Unavailable Encounter Details Date Type Department Care Team (Late st Contact Info) Description 07/26/2021 Orders Only [facility] [address] [place] [address] Conversion, Onbase Social History Tobacco Use Types [...] on filedocumented in this encounter Care Teams Paperback Machine Operator Relationship Specialty Start Date End Date Jaden Crabtree DO PCP - General 08/16/21 Jaden Crabtree DO [address] [place] [address] PCP - MMO Medicare Advantage PCP 02/16/23 09/17/23 documented as of this encounter
--- OUTSIDE RECORDS SUMMARY | 2025-07-24 14:39 | XMS_ITS | Clinical Summary ---
Author Organization [facility] Address [address] [place] [address] Phone Care Team Providers Care Operator Catalyst Concentration Name Role Phone Leyda Jaden Dawson DO Primary Care Provider [phone] Social History Tobacco Use Types Packs/Day Years [...] of 1 - Stand carlyn series) 1959 Diabetes Screening 1976 Hepatitis C Screening 1976 Pneumococcal Vaccine (1 of 2 - PCV) 1977 DTaP/Tdap/Td Vaccines (1 - Tdap) 1980 PSA Prostate Cancer Screening 2008 Zoster Vaccines (1 of 2) 2008 RSV High Risk: (Elderly (60+ ) or Population) (1 - Risk 60-74 years 1-dose series) 2018 COVID-19 Vaccine (1 - 2023-2 5 season) 2025 Influenza Vaccine (#1) 2025 HIB Vaccines Aged Out No longer eligi [...] age to complete this topic Care Teams Operator Catalyst Concentration Relationship Specialty Start Date End Date Jaden Crabtree DO PCP - General 08/16/21
--- OUTSIDE RECORDS SUMMARY | 2025-07-24 14:39 | XMS_ITS | Encounter Summary ---
Author Organization [facility] Address [address] [place] [address] Phone Care Team Providers Care Biometry Teacher Name Role Phone Jaden Crabtree DO Primary Care Provider [phone] Encounter Details Date Type Department Care Team (Late st Contact Info) Description 10/21/2023 Patient Risk Score ACO Care Management [address] [facility] [address] [place] [address] Social History Tobacco Use Types [...] on filedocumented in this encounter Care Teams Biometry Teacher Relationship Specialty Start Date End Date Jaden Crabtree DO PCP - General 08/16/21 documented as of this encounter
--- OUTSIDE RECORDS SUMMARY | 2025-07-24 14:39 | XMS_ITS | Encounter Summary ---
Author Organization [facility] Address [address] [place] [address] Phone Care Team Providers Care Veterinary Receptionist Name Role Phone Jaden Crabtree DO Primary Care Provider [phone] Jaden Crabtree DO Unavailable Encounter Details Date Type Department Care Team (Late st Contact Info) Description 06/21/2023 Patient Risk Score AC Care Management [address] [place] [address] Social History Tobacco Use Types [...] on filedocumented in this encounter Care Teams Veterinary Receptionist Relationship Specialty Start Date End Date Jaden Crabtree DO PCP - General 08/16/21 Jaden Crabtree DO [address] [place] [address] PCP - MMO Medicare Advantage PCP 02/16/23 09/17/23 documented as of this encounter
--- OUTSIDE RECORDS SUMMARY | 2025-07-24 14:39 | XMS_ITS | Encounter Summary ---
Author Organization [facility] Address [id number] [address] [place] [address] Care Team Providers Care Riding Instructor Name Role Phone Jaden Crabtree DO Primary Care Provider [phone] Reason for Visit * Reason Onset Date Comments Med Refill 04/06/2025 Encounter Details Date Type Department Care Team (Late st Contact Info) Description 04/06/2025 Refill [facility] [address] [place] [phone] Andrés Bowden MD [address] [place] [address], [facility] [address] [place] [address] Spinal stenosis of lumbar region [...] Office Visit [facility], A Department of [address] [place] [phone] Lyn Lawton MD [address] [place] [address], [facility] [address] [place] [address] 09/12/2025 11:00 AM EST [facility] Department of [address] [place] [phone] Tony Martin MD [address] [place] [address], [facility] [address] [place] [address] documented as of this encounter Goals Goal [...] documented as of this encounter Care Teams Riding Instructor Relationship Specialty Start Date End Date Jaden Crabtree DO [address] [place] [address] PCP - General Family Medicine 01/17/21 documented as of this encounter
--- OUTSIDE RECORDS SUMMARY | 2025-07-24 14:39 | XMS_ITS | Clinical Summary ---
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 No 11/25/2022 Area Deprivation Index Answer Date Ross rded National Score (1-100), lower number is lower ri sk Not on file 09/23/2020 State Score (1-10), lower number is lower risk N ot on file 09/23/2020 Data from: https://www.neighborhoodatlas.medicine.[place].edu/. Last address used for calculation Not on [...] Medicare Advantage Annual We llness Visit 10/19/2024 Covid-19 Vaccine (6 - 2024-2 6 season) 2025 11/06/2021, 10/15/2021, 01/30/2021, Additional history exists Influenza Vaccine (#1) 2025 , 09/02/2022, 10/15/2021, Additional history exists Colonoscopy 08/11/2026 08/11/2016, 08/11/2016 Colorectal Cancer Screening 08/11/2026 DTaP,Tdap,Td Vaccine (3 - Td or Tdap) 11/15/2028 11/15/2018, 10/22/2015 Medical Devices Implanted Type Area Powerhouse Electrician Device Identifier Shelf Expiration Date Model / Serial / Lot Restrictor 24mm Medium Protection Cement Revision Plug Hip - [id number] Implanted:Qty: 1 on 04/27/2017 at [facility] Cement / Putty Left: Bone - Knee [employer] 07/28/2021 [id number] / / [id number] Cement Simplex P Tobramycin Bone Full Dose Radiopaque Preblend Sterile - [id number] Implanted:Qty: 5 on 04/27/2017 at [facility] Cement / Putty Left: Bone - Knee [employer] 07/28/2018 6197-9-010 / / [id number] Restrictor 30mm Large Protection Cement Revision Plug Hip - [id number] Implanted:Qty: 1 on 04/27/2017 at [facility] Cement / Putty Left: Bone - Knee [employer] 10/28/2021 H151-2087 / / [id number] Cement Simplex P Speedset Bone Radiopaque Sterile - [id number] Implanted:Qty: 1 on 12/29/2017 at [facility] Cement / Putty Left: Bone - Shoulder [employer] 02/15/2019 [id number] / / [id number] Fdv-Ll-H-Kind Implant - [id number] Implanted:Qty: 1 on 06/05/2016 at [facility] Implant N/A: Back OTHER 01/16/2019 [id number] / / [id number] Description:NEVRO JAZLYN. N300 LEAD ANCHOR KIT Head Global Unite 52mm Standard 18mm Humeral - [id number] Implanted:Qty: 1 on 12/29/2017 at [facility] Implant Left: Bone - Shoulder [employer] 06/18/2025 [id number] / / [id number] Nevro Brine Supervisor Kit Implanted:Qty: 1 on 03/16/2018 at [facility] Implant N/A: Back OTHER 05/14/2020 [id number] 0B / / [id number] Head V40 28mm -2.7mm Offset Taper Biolox Delta Femoral Hip - [id number] Implanted:10/20 at [facility] (Quantity not on file) Joint - Hip Left: Bone - Hip [employer] 07/29/2024 [id number] / / [id number] Liner 46mm F Cocr Acetabular Modular Dual Mobility Primary Hip - [id number] Implanted:10/20 at [facility] (Quantity not on file) Joint - Hip Left: Bone - Hip [employer] 08/29/2024 [id number] / / [id number] Insert Adm Mobile Bearing Hip Buddhism 52mm 28mm 0d X3 8.9mm Acetabular - [id number] Implanted:10/20 at [facility] (Quantity not on file) Joint - Hip Left: Bone - Hip [employer] 09/28/2024 [id number] / / [id number] Insert Adm Mobile Bearing Hip Buddhism 52mm 28mm 0d X3 8.9mm Acetabular - [id number] Implanted:04/18 at [facility] (Quantity not on file) Joint - Hip Right: Bone - Hip [employer] 01/09/2025 [id number] / / [id number] Head V40 28mm +4mm Offset Taper Biolox Delta Femoral Hip - [id number] Implanted:04/18 at [facility] (Quantity not on file) Joint - Hip Right: Bone - Hip [employer] 12/30/2024 [id number] / / [id number] Liner 46mm F Cocr Acetabular Modular Dual Mobility Primary Hip - [id number] Implanted:04/18 at [facility] (Quantity not on file) Joint - Hip Right: Bone - Hip [facility] 12/20/2024 [id number] / / [id number] Stem Triathlon 12mm Cocr 100mm Femoral Cemented Total Stabilized Knee - [id number] Implanted:Qty: 1 on 04/27/2017 at [facility] Joint - Knee Left: Bone - Knee [facility] [id number] / / [id number] Stem Triathlon 15mm Cocr 50mm Femoral Cemented Total Stabilize Knee - [id number] Implanted:Qty: 1 on 04/27/2017 at [facility] Joint - Knee Left: Bone - Knee [facility] 03/09/2022 [id number] / / [id number] Component Triathlon 7 Cocr Femoral Total Stabilize Knee Left - [id number] Implanted:Qty: 1 on 04/27/2017 at [facility] Joint - Knee Left: Bone - Knee [facility] 11/04/2021 [id number] / / [id number] Augment Triathlon 7 5mm Femoral Total Stabilize Knee Posterior - [id number] Implanted:Qty: 1 on 04/27/2017 at [facility] Joint - Knee Left: Bone - Knee [facility] 01/22/2022 [id number] / / [id number] Augment Triathlon 7 5mm Femoral Total Stabilize Knee Left - [id number] Implanted:Qty: 1 on 04/27/2017 at [facility] Joint - Knee Left: Bone - Knee [facility] 07/16/2022 [id number] / / [id number] Augment Triathlon 7 5mm Femoral Total Stabilize Knee Left - [id number] Implanted:Qty: 1 on 04/27/2017 at [facility] Joint - Knee Left: Bone - Knee [facility] 05/19/2020 [id number] / / [id number] Augment Triathlon 6 10mm Tibial Total Stabilize Right Medial Left Lateral - [id number] Implanted:Qty: 1 on 04/27/2017 at [facility] Joint - Knee Left: Bone - Knee [facility] 04/18/2020 1300T140 / / [id number] Baseplate Triathlon 6 Protection Cocr Tibial Total Stabilize Cemented Knee - [id number] Implanted:Qty: 1 on 04/27/2017 at [facility] Joint - Knee Left: Bone - Knee [facility] 03/11/2022 [id number] / / [id number] Augment Triathlon 6 10mm Tibial Total Stabilize Left Medial Right Lateral - [id number] Implanted:Qty: 1 on 04/27/2017 at [facility] Joint - Knee Left: Bone - Knee [facility] 08/07/2022 [id number] / / [id number] Insert Triathlon 6 X3 16mm Tibial Total Stabilize Plus Knee - [id number] Implanted:Qty: 1 on 04/27/2017 at [facility] Joint - Knee Left: Bone - Knee [facility] 11/20/2021 [id number] / / [id number] Component Triathlon 7 Pa Femoral Cruciate Retain Bead Knee Right - [id number] Implanted:Qty: 1 on 07/01/2017 at [facility] Joint - Knee Right: Bone - Knee [facility] 02/25/2022 [id number] / / [id number] Insert Triathlon 6 X3 13mm Tibial Condylar Stabilized Knee - [id number] Implanted:Qty: 1 on 07/01/2017 at [facility] Joint - Knee Right: Bone - Knee [facility] 10/30/2021 [id number] / / [id number] Baseplate Triathlon 6 Tritanium [id number] Tibial 4 Cruciform Peg Keel Knee - [id number] Implanted:Qty: 1 on 07/01/2017 at [facility] Joint - Knee Right: Bone - Knee [facility] 03/09/2022 5536-B-600 / / [id number] Component Tritanium 35mm Metal 10mm Patellar Asymmetric Knee - [id number] Implanted:Qty: 1 on 07/01/2017 at [facility] Joint - Knee Right: Bone - Knee [facility] 02/23/2022 5552-L-350 / / [id number] Component Triathlon 35mm 10mm Patellar Asymmetric Knee - [id number] Implanted:Qty: 1 on 04/27/2017 at [facility] Joint - Patella Left: Bone - Knee [employer] 11/25/2021 2452T059 / / [id number] Head 48mm 7mm Humeral [place] Peg Left Glenoid - [id number] Implanted:Qty: 1 on 12/29/2017 at [facility] Joint - Shoulder Left: Bone - Shoulder [employer] 08/18/2021 [id number] / / [id number] Stem Global Ap 12mm Porocoat 137mm Humeral Arthroplasty System Shoulder - [id number] Implanted:Qty: 1 on 12/29/2017 at [facility] Joint - Shoulder Left: Bone - Shoulder [employer] 11/18/2025 [id number] / / [id number] Assembly Global Ap 135d Taper Fix Shoulder Arthroplasty System - [id number] Implanted:Qty: 1 on 12/29/2017 at [facility] Joint - Shoulder Left: Bone - Shoulder [employer] 01/16/2027 [id number] / / [id number] Augment Triath Tib Cone Sz A - [id number] Implanted:Qty: 1 on 04/27/2017 at [facility] Joint Left: Bone - Knee [employer] 12/26/2021 5549-A-110 / / [id number] Stem Accolade Ii 7 127d Femoral - [id number] Implanted:10/20 at [facility] (Quantity not on file) Joint Left: Bone - Hip [employer] 03/30/2024 2309-5197 / / [id number] Shell Trident Ii 56mm F Tritanium Acetabular 5 Screw Hole Cluster Sterile - [id number] Implanted:10/20 at [facility] (Quantity not on file) Joint Left: Bone - Hip [employer] 06/30/2024 702-04-56F / / [id number] Stem Accolade Ii 7 127d Femoral - [id number] Implanted:04/18 at [facility] (Quantity not on file) Joint Right: Bone - Hip [employer] 07/03/2024 4884-7645 / / [id number] Shell Trident Ii 56mm F Tritanium Acetabular 5 Screw Hole Cluster Sterile - [id number] Implanted:0703/2020 at [facility] (Quantity not on file) Joint Right: Bone - Hip [employer] 09/19/2024 702-04-56F / / [id number] Lead 50cm Nevro - [id number] Implanted:Qty: 2 on 05/08/2016 at [facility] Lead N/RL 01/07/2019 PVVG3709-3 0B / / [id number] Description:50 Lead 50cm Nevro - [id number] Implanted:Qty: 1 on 06/05/2016 at [facility] Lead Left: Back OTHER 02/15/2019 IKJH7081-3 0B / / [id number] Description:NEVRO BLUE PERC LEAD KIT Lead 50cm Nevro - [id number] Implanted:Qty: 1 on 06/05/2016 at [facility] Lead Right: Back OTHER 02/15/2019 ITAL0906-6 0B / / [id number] Description:NEVRO BLUE PERC LEAD KIT Gnrtr Nrstm Ipg Kit Nevro - [id number] Implanted:Qty: 1 on 06/05/2016 at [facility] Neurostimulator N/A: Back OTHER 02/15/2018 NIPG1 500 / [id number] / [id number] Description:NEVRO NIPG KIT Procedures Procedure Name Priority [...] Nonfasting 79 <200 mg/dL 11/29/2022 10:30 PM [facility] Comment: <200 mg/dL, Desirable 200-239 mg/dL, Borderline high >239 mg/dL, High Triglycerides, Nonfasting 117 <150 mg/dL 11/29/2022 10:30 PM [facility] Comment: <150 mg/dL, Normal 150-199 mg/dL, Borderline high 200-499 mg/dL, High >499 mg/dL, Very high HDL Cholesterol, Nonfasting 15(L) >39 mg/dL 11/29/2022 10:30 PM [facility] Comment: 40-59 mg/dL, Acceptable >59 mg/dL, High: Negative risk factor for coronary heart disease <40 mg/dL, Low: Positive risk factor for coronary heart disease LDL Cholesterol Calculated, Nonfasting 41 <100 mg/dL 11/29/2022 10:30 PM [facility] Comment: <100 mg/dL, Optimal 100-129 mg/dL, Near optimal/above optimal 130-159 mg/dL, Borderline high 160-189 mg/dL, High >189 mg/dL, Very high Secondary prevention optimal LDL Cholesterol levels are recommended to be < 70 mg/dL Non HDL Cholesterol, Nonfasting 64 <130 mg/dL 11/29/2022 10:30 PM [facility] Comment: <130 mg/dL, Optimal 130-159 mg/dL, Near optimal/above optimal 160-189 mg/dL, Borderline high 190-219 mg/dL, High >219 mg/dL, Very high Secondary prevention optimal non HDL Cholesterol levels are recommended to be <100 mg/dL VLDL Cholesterol, Nonfasting 23 <30 mg/dL 11/29/2022 10:30 PM [facility] Total Chol/HDL Ratio, Nonfasting 5.27(H) <5.10 mg/dL 11/29/2022 10:30 PM [facility] LDL/HDL Ratio, Nonfasting 2.73(H) <2.54 mg/dL 11/29/2022 10:30 PM [facility] Comment: Reference: 1. National Cholesterol Education Program ATP III Guideline At-A-Glance Quick Desk Reference: National Heart, Lung, and Blood [place]. National Institutes of Health. 2001: NIH Publication No. 01-3305. 2. An International Atherosclerosis Society position paper: global recommendations for the management of dyslipidemia: executive summary, Atherosclerosis. 2014: 232(2):410-413. Blood BLOOD SPECIMEN / Unknown Venipuncture / Unknown 11/29/2022 2:31 AM EST 11/29/2022 2:47 AM EST Conrado Harris MD LABORATORY Final Result Performing Organization Address City/[facility] Co de Phone Number [facility] [address] [address], * HGB A1C (04/24/2020 1:03 PM EDT) Hemoglobin A1C 5.6 4.3 - 5.6 % 04/24/2020 1:36 PM EDT [facility] Estimated Average Glucose 114 mg/dL 04/24/2020 1:36 PM EDT [facility] Comment: eAG: (Estimated average glucose) is a calculated value from HgbA1c and is medical collections representative of the average blood glucose level in the last 2-3 month period. Blood specimen (specimen) WHOLE BLOOD SPECIMEN / Unknown 04/24/2020 1:03 PM EDT 04/24/2020 1:05 PM EDT Steven Guevara Jr., MD LABORATORY Final Re sult Performing Organization Address [facility] Co de Phone Number [facility] [address] [place] [address] [facility] [address] [facility]. [facility] [address] * COLONOSCOPY - DIAGNOSTIC (08/11/2016 10:20 AM EDT) Procedures Nurse A31 Gastrointestinal Endoscopy Patient Name: Jamarcus García [...] Most Recently Relevant to Health Maintenance [facility] Address: [place] [address] Advance Directives * DNR-CC (Latest Code Status [...] Code Order Discussed With: Patient Care Teams Class B Driver Relationship Specialty Start Date End Date Jaden Crabtree [address] [place] [phone] PCP - General 06/10/02
--- OUTSIDE RECORDS SUMMARY | 2025-07-24 14:39 | XMS_ITS | Encounter Summary ---
Author Organization [facility] Address [address] [place] [address] Phone Care Team Providers Care Cabinet Installer Name Role Phone Jaden Crabtree DO Primary Care Provider [phone] Jaden Crabtree DO Unavailable Encounter Details Date Type Department Care Team (Late st Contact Info) Description 05/21/2023 Patient Risk Score AC Care Management [address] [place] [address] Social History Tobacco Use Types [...] on filedocumented in this encounter Care Teams Cabinet Installer Relationship Specialty Start Date End Date Jaden Crabtree DO PCP - General 08/16/21 Jaden Crabtree DO [address] [place] [address] PCP - MMO Medicare Advantage PCP 02/16/23 09/17/23 documented as of this encounter
--- OUTSIDE RECORDS SUMMARY | 2025-07-24 14:39 | XMS_ITS | Encounter Summary ---
Author Organization [facility] Address [address] [place] [address] Phone Care Team Providers Care Special Needs Teacher Name Role Phone Jaden Crabtree DO Primary Care Provider [phone] Jaden Crabtree DO Unavailable Encounter Details Date Type Department Care Team (Late st Contact Info) Description 03/03/2022 Orders Only [facility] [address] [place] [address] Conversion, Onbase Social History Tobacco Use Types [...] on filedocumented in this encounter Care Teams Special Needs Teacher Relationship Specialty Start Date End Date Jaden Crabtree DO PCP - General 08/16/21 Jaden Crabtree DO [address] [place] [address] PCP - MMO Medicare Advantage PCP 02/16/23 09/17/23 documented as of this encounter
--- OUTSIDE RECORDS SUMMARY | 2025-07-24 14:39 | XMS_ITS | Clinical Summary ---
Author Organization [facility] Address [address] [place] [address] Care Team Providers Care Supervisor Park Workers Name Role Phone Unavailable Primary Care Provider Unavailabl e Social History Tobacco Use Types Packs/Day Years [...]
--- OUTSIDE RECORDS SUMMARY | 2025-07-24 14:39 | XMS_ITS | Encounter Summary ---
Author Organization [facility] Address [id number] [address] [place] [address] Care Team Providers Care Cleaner And Polisher Name Role Phone Jaden Crabtree DO Primary Care Provider [phone] Reason for Visit * Reason Onset Date Comments Med Refill 03/31/2025 Encounter Details Date Type Department Care Team (Late st Contact Info) Description 03/31/2025 Refill [facility] [address] [place] [phone] Andrés Bowden MD [address] [place] [address], [facility] [address] [place] [address] Spinal stenosis of lumbar region [...] medication diversion, or non compliance. Reviewed by A AUXILIARY. Pend for signature. documented in this encounter Plan of Treatment Upcoming Encounters Date Type Department Care Team (Late st Contact Info) Description 07/26/2025 10:00 AM EDT Office Visit [facility] Neurology, A Department of [address], [employer], [address] [place] [phone] Lyn Lawton MD [address] [place] [address] [address] [place] [address] 09/12/2025 11:00 AM EST Office Visit [facility], A Department of [address] [place] [phone] Tony Martin MD [address] [place] [address] [address], [address] [place] [address] documented as of this encounter Goals Goal [...] documented as of this encounter Care Teams Cleaner And Polisher Relationship Specialty Start Date End Date Jaden Crabtree DO [address] [place] [address] PCP - General Family Medicine 01/17/21 documented as of this encounter
--- OUTSIDE RECORDS SUMMARY | 2025-07-24 14:39 | XMS_ITS | Encounter Summary ---
Author Organization [facility] Address [address] [place] [address] Phone Care Team Providers Care Manager Disaster Recovery Name Role Phone Jaden Crabtree DO Primary Care Provider [phone] Jaden Crabtree DO Unavailable Encounter Details Date Type Department Care Team (Late st Contact Info) Description 08/21/2023 Patient Risk Score AC Care Management [address] [place] [address] Social History Tobacco Use Types [...] on filedocumented in this encounter Care Teams Manager Disaster Recovery Relationship Specialty Start Date End Date Jaden Crabtree DO PCP - General 08/16/21 Jaden Crabtree DO [address] [place] [address] PCP - MMO Medicare Advantage PCP 02/16/23 09/17/23 documented as of this encounter
--- OUTSIDE RECORDS SUMMARY | 2025-07-24 14:39 | XMS_ITS | Encounter Summary ---
Author Organization [facility] Address [address] [place] [address] Care Team Providers Care Engine Lathe Set Up Operator Name Role Phone Unavailable Primary Care Provider Unavailabl e Encounter Details Date Type Department Care Team (Late st Contact Info) Description 03/10/2024 Clinisync Result Encounter [facility] External Department Unsolicited Tracey Marin MD [address], [place] [id number] Social History Tobacco Use Types Packs/Day Years [...] EDT Narrative 03/10/2024 2:33 PM EDT The [address] [address] Vein Report Signed Patient: ALISIA CORREA MR#: [id number] : 1960 Acct:[id number] Age/Sex: 63 / M ADM Date: 03/10/24 Loc: [facility] Attending Dr: Tracey Marin M.D. Ordering Physician: Tracey Marin M.D. Date of Service: 03/10/24 Procedure(s): VC US AAA SCREEN Accession Number(s): [id number] cc: ELLEN ARIAS ; Tracey Marin M.D. The [address] [id number] Patient Name: ALISIA CORREA MRN: [id number] date: 1960 Sex: M Assigned Patient Location: Current Patient Location: VC Accession/Order Number: [id number] Exam Date: 03/10/2024 10:05 Report Date: 03/10/2024 [...] Signed By: 03/10/24 1433 DD/ 143 TD/TT: Transaction Manager: Procedure Note Radiology, Radiologist, MD - 03/11/[address] [address] Vein Report Signed Patient: ALISIA CORREA LMR#: [id number] : 1960cct:[id number] Age/Sex: 63 / MADM Date: 03/10/24 Loc: VC Attending Dr: Tracey Marin M.D. Ordering Physician: Tracey Marin M.D. Date of Service: 03/10/24 Procedure(s): VC US AAA SCREEN Accession Number(s): [id number] cc: ELLEN ARIAS ; Tracey Marin M.D. The [place] [address] Patient Name: ALISIA CORREA [facility]N: [facility]:[id number] date: 1960 Sex: M Assigned Patient Location: Current Patient Location: Accession/Order Number: [id number] Exam Date: 03/10/2024 10:05 Report Date: 03/10/2024 [...] M.D. Signed By:03/10/24 1433 DD/ 30 TD/TT: Transaction Manager: Tracey Marin MD IMG US PROCEDURES Final Resu lt documented in this encounter Visit Diagnoses Not on filedocumented in this encounter
--- OUTSIDE RECORDS SUMMARY | 2025-07-24 14:40 | XMS_ITS | Encounter Summary ---
Author Organization [facility] [employer] [facility] Address [id number] [address] [place] [address] Care Team Providers Care Acupressurist Name Role Phone Jaden Crabtree DO Primary Care Provider [phone] Encounter Details Date Type Department Care Team (Late st Contact Info) Description 06/27/2022 Telephone [facility] [address] [place] [phone] Yordan Zimmer, MARTI Social History Tobacco Use [...] Office Visit [facility], A Department of [facility] [address] [facility] [address] [place] [phone] Lyn Lawton MD [facility] [place] [address] [place] [address] 09/12/2025 11:00 AM EST Office Visit [facility], A Department of [address] [place] [phone] Tony Martin MD [facility] [place] [address] [place] [address] documented as of this encounter Goals Goal [...] documented as of this encounter Care Teams Acupressurist Relationship Specialty Start Date End Date Jaden Crabtree DO [address] [place] [address] PCP - General Family Medicine 01/17/21 documented as of this encounter
--- OUTSIDE RECORDS SUMMARY | 2025-07-24 14:40 | XMS_ITS | Encounter Summary ---
Author Organization [facility] tem Address [facility]-[id number] [address] [place] [address] Care Team Providers Care Boilermaker Industrial Boilers Name Role Phone Jaden Crabtree DO Primary Care Provider [phone] Reason for Visit * Reason Onset Date Comments Med Refill 05/23/2022 Encounter Details Date Type Department Care Team (Late st Contact Info) Description 05/23/2022 Telephone [facility] Neurology [address] [place] [phone] Peace Romo Med Refill Social History Tobacco [...] 05/23/22 11:26 [facility]ill script for Sinemet ER. She said that they have script for the regular 25-100 mg, but they need the ER and do not know the dosage for this. Last office visit with Reena Cervantes 09/26/21. Please send med refill script to [facility] in [place] located at: [address] [facility], [id number]. Their callback# if needed: [phone]. documented in this encounter Plan of Treatment Upcoming Encounters Date Type Department Care Team ([facility] Contact Info) Description 07/26/2025 10:00 AM EDT Office Visit [facility] Neurology, A Department of [address], [address], [address] [place] [phone] Lyn Lawton MD [address] [place] [address] 101, 102, [address] [place] [address] 09/12/2025 11:00 AM EST Office Visit [facility] Neurology, A Department of [address], [address], [address] [place] [phone] Tony Martin MD [address] [place] [address] 101, 102, [address] [place] [address] documented as of this encounter Goals Goal [...] documented as of this encounter Care Teams Boilermaker Industrial Boilers Relationship Specialty Start Date End Date Jaden Crabtree DO [address] [place] [address] PCP - General Family Medicine 01/17/21 documented as of this encounter
--- OUTSIDE RECORDS SUMMARY | 2025-07-24 14:40 | XMS_ITS | Encounter Summary ---
Author Organization [facility] Address [address] [facility] [place] [address] Care Team Providers Care Commodities Manager Name Role Phone MichiJaden guzmán Primary Care Provider [phone] Bhupendra Painter MD Unavailable Encounter Details Date Type Department Care Team (Late st Contact Info) Description 07/18/2025 Orders Only [facility] Clinic [address] [place] [address] Antonio Lim MD [address] [place] [address] Social History Tobacco Use Types Packs/Day Years Used Date Smoking Tobacco: Former Cigarettes 1 44.6 0 01/13/1978 - 08/19/2022 Smokeless Tobacco: Never Alcohol Use Standard Drinks/Week Comments Never 0 (1 standard drink = 0.6 oz pur e alcohol) [facility] Utilities Answer Date Recorded In the past 12 months has e electric, gas, oil, or water company threatened to shut off services in your home? No 06/15/2025 Humiliation, Afraid, Rape, and Kick questionnair e Answer Date Recorded Within the last year, have y ou been afraid of your partner or ex-partner? No 07/06/2025 Emotionally Abused Not on file 07/06/2025 Physically Abused Not on file 07/06/2025 Sexually Abused Not on file 07/06/2025 Overall Financial Resource Strain (CARDIA) Answe r Date Recorded How hard is it for you to pa y for the very basics like food, housing, medical care, and heating? Not hard at all 06/15/2025 PHQ-2 Answer Date Recorded Patient Health Questionnaire-2 Score 0 07/06/2025 Transportation Answer Date Recorded In the past 12 months, has l ack of transportation kept you from medical appointments or from getting medications? No 06/15/2025 Lack of Transportation (Non-Medical) Not on file 06/15/2025 Housing Stability Vital Sign Answer Ja e Recorded In the last 12 months, was t here a time when you were not able to pay the mortgage or rent on time? No 06/15/2025 Number of Times Moved in the Last Year Not on fi le 06/15/2025 At any time in the past 12 m [facility], were you homeless or living in a penitentiary (including now)? No 06/15/2025 Hunger Vital Sign Answer Date Recorded Within the past 12 months, y ou worried that your food would run out before you got the money to buy more. Never true 06/15/20 25 Ran Out of Food in the Last Year Not on file 06/15/2025 Comments Unknown Sex and Gender Information Value [...] Care Team (Late st Contact Info) Description 07/25/2025 3:30 PM EDT Ancillary Procedure [facility] [address] [place] [address] 09/07/2025 1:30 PM EST Follow-Up [facility] Surgery Clinic [address] [place] [address] Roberth Cowan MD [address] [facility] [place], [place] [id number] documented as of this encounter Procedures Procedure Name Priority Date/Time Associated Diagnosis Comments CARDIAC DEVICE CHECK - REMOTE - PACEMAKER Routine 07/18/2025 12:00 AM EDT documented in this encounter Results * Cardiac device check - Remote pacemaker (07/18/2025 12:00 AM EDT) Anatomical Region Laterality Modality Other 07/18/2025 Antonio Lim MD CV IMPLANTABLE CARDIAC DEVICE IL OCEDURES Final Result documented in this encounter Visit Diagnoses Not on filedocumented in this encounter Care Teams Commodities Manager Relationship Specialty Start Date End Date Jaden Crabtree DO [address] [place] [phone] PCP - General Family Medicine 04/25/25 Bhupendra Painter MD [address] [place] [address] Consulting Physician Urology 06/22/25 documented as of this encounter
--- OUTSIDE RECORDS SUMMARY | 2025-07-24 14:40 | XMS_ITS | Encounter Summary ---
Author Organization [facility] Address [address] [place] [address] Care Team Providers Care Section Hand Helper Name Role Phone Jaden Crabtree Primary Care Provider [phone] Source Comments In the event this information is protected by the Federal Confidentiality of Alcohol and Drug AbusePatient Records regulations: The Federal rules restrict any use of the information to criminally investigate or prosecute any alcohol or drug abuse patient.[facility] Reason for Visit * Reason Comments PHOTOS TAKEN Encounter Details Date Type Department Care Team (Late st Contact Info) Description 10/08/2007 Abstract Plastic Surgery [address] [address] Anup Bergman (Hist) PHOTOS TAKEN Social History [...] Progress Notes * 10/08/2007 9:47 AM EST [id number] DATES OF PHOTOS: 10/08/2007 TAKEN WITH LENS: [...] documented as of this encounter Care Teams Section Hand Helper Relationship Specialty Start Date End Date Jaden Crabtree [address] [place] [phone] PCP - General 06/10/02 documented as of this encounter
--- OUTSIDE RECORDS SUMMARY | 2025-07-24 14:40 | XMS_ITS | Encounter Summary ---
Author Organization [facility] Address [id number] [address] [place] [address] Care Team Providers Care Fruit Grading Supervisor Name Role Phone Jaden Crabtree DO Primary Care Provider [phone] Reason for Visit * Reason Comments Med Refill Encounter Details Date Type Department Care Team (Late st Contact Info) Description 10/16/2022 Refill [facility] [address] [place] [phone] Reena Cervantes APRN-CNP [address] [place] [address] 101, [address], [address] [place], [place] [phone] Parkinson's disease ([facility]) Social History Tobacco Use Types Packs/Day Years [...] 10:00 AM EDT Office Visit [facility] Neurology, A Department of [address], [address], [address] [place] [phone] Lyn Lawton MD [address] [place] [address] 101, 102, [address] [place] [address] 09/12/2025 11:00 AM EST Office Visit [facility] Neurology, A Department of [address], [address], [address] [place] [phone] Tony Martin MD [address] [place] [address] 101, 102, [address] [place], [place] [phone] documented as of this encounter Goals Goal [...] documented as of this encounter Care Teams Fruit Grading Supervisor Relationship Specialty Start Date End Date Jaden Crabtree DO [address] [place] [address] PCP - General Family Medicine 01/17/21 documented as of this encounter
--- OUTSIDE RECORDS SUMMARY | 2025-07-24 14:40 | XMS_ITS | Encounter Summary ---
Author Organization [facility] tem Address [facility]-[id number] [address] [place] [address] Care Team Providers Care Artificial Flowers Dyer Name Role Phone Jaden Crabtree DO Primary Care Provider [phone] Reason for Visit * Reason Onset Date Comments Med Refill 05/21/2022 Encounter Details Date Type Department Care Team ([facility] Contact Info) Description 05/21/2022 Telephone [facility] Neurology [address] [place] [phone] Susanna Tao Med Refill Social History Tobacco [...] day Pharmacy Name: [facility] [address] [place] [address] Request was made by: [facility] documented in this encounter Plan of Treatment Upcoming Encounters Date Type Department Care Team (Late st Contact Info) Description 07/26/2025 10:00 AM EDT Office Visit [facility] Neurology, A Department of [address], [address], [address] [place] [address] Lyn Lawton MD [address] [place] [address] 101, 102, [address] [place] [address] 09/12/2025 11:00 AM EST Office Visit [facility] Neurology, A Department of [address], [address], [address] [place] [phone] Tony Martin MD [address] [place] [address] 101, 102, [address] [place] [address] documented as of this encounter Goals Goal [...] documented as of this encounter Care Teams Artificial Flowers Dyer Relationship Specialty Start Date End Date Jaden Crabtree DO [address] [place] [address] PCP - General Family Medicine 01/17/21 documented as of this encounter
--- OUTSIDE RECORDS SUMMARY | 2025-07-24 14:40 | XMS_ITS | Encounter Summary ---
Author Organization [facility] Address [address] [place] [address] Care Team Providers Care Industrial Paramedic Name Role Phone Jaden Crabtree Primary Care Provider [phone] Source Comments In the event this information is protected by the Federal Confidentiality of Alcohol and Drug AbusePatient Records regulations: The Federal rules restrict any use of the information to criminally investigate or prosecute any alcohol or drug abuse patient.[facility] Encounter Details Date Type Department Care Team (Late st Contact Info) Description 12/09/2007 Abstract Endocrinology [address] [phone] Rachelle Mcqueen MD [address] [phone] Social History Tobacco Use Types Packs/Day Years [...] 5h GTT results faxed from Dr Jaden Crabtree,[address] [address] (Ph) Pat being referred for syncope and [...] documented as of this encounter Care Teams Industrial Paramedic Relationship Specialty Start Date End Date Jaden Crabtree [address] [place] [phone] PCP - General 06/10/02 documented as of this encounter
--- OUTSIDE RECORDS SUMMARY | 2025-07-24 14:40 | XMS_ITS | Encounter Summary ---
Author Organization [facility] Address [facility]-[id number] [address] [place] [address] Care Team Providers Care Cad Developer Name Role Phone Jaden Crabtree DO Primary Care Provider [phone] Encounter Details Date Type Department Care Team (Late Contact Info) Description 02/18/2024 Orders Only [facility] [address] [place] [phone] Ref [place], [place] [address] Social History Tobacco Use Types Packs/Day Years [...] Office Visit [facility], A Department of [address] [place] [address], [address], [address] [place] [phone] Lyn Lawton MD [address] [place] [address], [facility] 101, 102, [address] [place] [address] 09/12/2025 11:00 AM EST Office Visit [facility], A Department of [address], [address], [address] [place] [phone] Tony Martin MD [address] [place] [address], [facility] 101, 102, [address] [place] [address] documented as of this encounter Goals Goal [...] documented as of this encounter Care Teams Cad Developer Relationship Specialty Start Date End Date Jaden Crabtree DO [address] [place] [address] PCP - General Family Medicine 01/17/21 documented as of this encounter
--- OUTSIDE RECORDS SUMMARY | 2025-07-24 14:40 | XMS_ITS | Clinical Summary ---
Author Organization [facility] Address [address] [facility], [address] [place] [address] Care Team Providers Care Vice President Pharmacy Name Role Phone Jaden Crabtree DO Primary Care Provider [phone] Allergies Active Allergy Reactions Criticality Noted Date Comments Moxifloxacin Hives,Shortness Of Breath High 01/24/20 22 Celecoxib Hives Medium 01/23/2022 Erythromycin Itching,Nausea And Vomiting Low 2021 Clonazepam Shortness Of Breath High 01/23/2022 Levofloxacin Hives,Shortness Of Breath High 01/24/20 22 Medications [place]-3 Fatty Acids (FISH OIL) 1200 MG CAPS [...] on file Medical Devices Implanted Type Area Imaging Scheduler Device Identifier Shelf Expiration Date Model / Serial / Lot Screw Spinal Streamline 7.5x55mm - [id number] Implanted:Qty: 1 on 02/07/2022 by Frank Loza MD at [facility] Spine N/A: Spine Lumbar [employer] [id number] / / Set Scr Spnl Ti Streamline - [id number] Implanted:Qty: 9 on 02/07/2022 by Frank Loza MD at [facility] N/A: Spine Lumbar [employer] [id number] / / Screw Spnl L45mm Dia7.5mm Thorlum Ti Ally Polyax Streamline - [id number] Implanted:Qty: 2 on 02/07/2022 by Frank Loza MD at [facility] N/A: Spine Lumbar [employer] [id number] / / Screw Spnl L50mm Dia7.5mm Thorlum Ti Ally Polyax Streamline - [id number] Implanted:Qty: 6 on 02/07/2022 by Frank Loza MD at [facility] N/A: Spine Lumbar [employer] [id number] / / Ta Spnl L120mm [id number] Thorlum Prebent Streamline - [id number] Implanted:Qty: 1 on 02/07/2022 by Frank Loza MD at [facility] N/A: Spine Lumbar [employer] [id number] / / Ta Spnl L100mm [id number] Thorlum Prebent Streamline - [id number] Implanted:Qty: 1 on 02/07/2022 by Frank Loza MD at [facility] N/A: Spine Lumbar [employer] [id number] / / Additional Health Concerns Infection Onset Date 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
--- OUTSIDE RECORDS SUMMARY | 2025-07-24 14:40 | XMS_ITS | Encounter Summary ---
Author Organization [facility] Address [address] [place] [address] Care Team Providers Care Rn Clinical Documentation Specialist Name Role Phone Michiramirez Jaden Primary Care Provider [phone] Bhupendra Painter MD Unavailable Encounter Details Date Type Department Care Team (Late st Contact Info) Description 07/07/2025 Telephone [facility] Surgery Clinic [address] [place] [address] Santa Bean MA Social History Tobacco Use Types Packs/Day Years Used Date Smoking Tobacco: Former Cigarettes 1 44.6 0 01/13/1978 - 08/19/2022 Smokeless Tobacco: Never Alcohol Use Standard Drinks/Week Comments Never 0 (1 standard drink = 0.6 oz pur e alcohol) [facility] Utilities Answer Date Recorded In the past 12 months has [facility], gas, oil, or water [employer] threatened to shut off services in your [...] any time in the past 12 m [facility], were you homeless or living in a [...] AM EDT documented as of this encounter Miscellaneous Notes * Telephone Encounter - Santa Bean MA - 07/10/2025 9:08 AM EDT Per verbal order of Dr. Cowan patient should continue wound vacc for 4 weeks Nurse at [facility] notified * Telephone Encounter - Santa Bean MA - 07/07/2025 2:17 PM EDT Josue from [facility] called regarding wound vac, should patient continue wound vac or should they use wet to dry dressing on wound documented in this encounter Plan of Treatment Upcoming Encounters Date Type Department Care Team (Late st Contact Info) Description 07/25/2025 3:30 PM EDT Ancillary Procedure [facility] [address] [place] [address] 09/07/2025 1:30 PM EST Follow-Up [facility] Surgery Clinic [address] [place] [address] Roberth Cowan MD [address] [facility] [place] [address] documented as of this encounter Visit Diagnoses Not on filedocumented in this encounter Care Teams Rn Clinical Documentation Specialist Relationship Specialty Start Date End Date Jaden Crabtree DO [address] [place] [phone] PCP - General Family Medicine 04/25/25 Bhupendra Painter MD [address] [place], [place] [address] [address] Consulting Physician Urology 06/22/25 documented as of this encounter
--- OUTSIDE RECORDS SUMMARY | 2025-07-24 14:40 | XMS_ITS | Encounter Summary ---
Author Organization [facility] tem Address [facility]-[id number] [address] [place] [address] Care Team Providers Care Digital Analyst Name Role Phone Jaden Crabtree DO Primary Care Provider [phone] Reason for Visit * Reason Onset Date Comments Reschd appt 12/19/2021 Encounter Details Date Type Department Care Team (Late st Contact Info) Description 12/19/2021 Telephone [facility] Neurology [address] [place] [phone] Carmen Espinal Reschd appt Social History Tobacco [...] 10:00 AM EDT Office Visit [facility] Neurology, A Department of [address], [address], [address] [place] [address] Lyn Lawton MD [address] [place] [address], [facility] 101, 102, [address] [place] [address] 09/12/2025 11:00 AM EST Office Visit [facility] Neurology, A Department of [address], [address], [address] [place] [address] Tony Martin MD [address] [place] [address], [facility] 101, 102, [address] [place] [address] documented as of this encounter Goals Goal [...] documented as of this encounter Care Teams Digital Analyst Relationship Specialty Start Date End Date Jaden Crabtree DO [address] [place] [address] PCP - General Family Medicine 01/17/21 documented as of this encounter
--- OUTSIDE RECORDS SUMMARY | 2025-07-24 14:40 | XMS_ITS | Encounter Summary ---
Author Organization [facility] Address [facility][id number] [address] [place] [address] Care Team Providers Care Zinc Miner Blasting Name Role Phone Jaden Crabtree DO Primary Care Provider [phone] Reason for Visit * Reason Comments Med Refill Encounter Details Date Type Department Care Team (Late st Contact Info) Description 09/02/2023 Refill [facility] [address] [place] [phone] Andrés Bowden MD [address] [place] [address] 101, 102, [address] [place], [place] [phone] [employer] Social History Tobacco Use Types Packs/Day [...] 10:00 AM EDT Office Visit [facility] Neurology, A Department of [address], [address], [address] [place] [phone] Lyn Lawton MD [address] [place] [address] 101, 102, [address] [place] [address] 09/12/2025 11:00 AM EST Office Visit [facility] Neurology, A Department of [address], [address], [address] [place] [phone] Tony Martin MD [address] [place] [address] 101, 102, [address] [place] [address] documented as of this encounter Goals Goal [...] documented as of this encounter Care Teams Zinc Miner Blasting Relationship Specialty Start Date End Date Jaden Crabtree DO [address] [place] [address] PCP - General Family Medicine 01/17/21 documented as of this encounter
--- OUTSIDE RECORDS SUMMARY | 2025-07-24 14:40 | XMS_ITS | Encounter Summary ---
Author [facility] Address [facility]-[id number] [address] [place] [address] Care Team Providers Care Kaiawhina Kura Kaupapa Maori Name Role Phone Jaden Crabtree DO Primary Care Provider [phone] Encounter Details Date Type Department Care Team (Late st Contact Info) Description 03/19/2021 Orders Only [facility] [address] [place] [address] Omar Arias CMA Erythema; PAD (peripheral artery disease) ([facility]); Claudication ([facility]); Swelling of lower extremity; Venous insufficiency of [...] Description 07/26/2025 10:00 AM EDT [facility] Department of [address] [place] [address], [address], [address] [place] [phone] [place] [address] [place] [address], [place] [address], [address], [address] [place] [address] 09/12/2025 11:00 AM EST Office Visit [facility] Neurology, A Department of [address] [place] [address], [address], [address] [place] [address] Tony Martin MD [address] [place] [address], [place] [address], [address], [address] [place] [address] documented as of this encounter Goals Goal [...] SERUM Routine 01/31/2021 PAD (peripheral artery disease) ([facility]) Claudication ([facility]) Swelling of lower extremity Venous insufficiency of [...] ORDERABLES Final Resu lt Performing Organization Address City/[facility] Co de Phone Number SUNQUEST documented in [...] documented as of this encounter Care Teams Kaiawhina Kura Kaupapa Maori Relationship Specialty Start Date End Date Jaden Crabtree DO [address] [place] [address] PCP - General Family Medicine 01/17/21 documented as of this encounter
--- OUTSIDE RECORDS SUMMARY | 2025-07-24 14:40 | XMS_ITS | Encounter Summary ---
Author Organization [facility] [employer] [facility] tem Address [facility]-[id number] [address] [place] [address] Care Team Providers Care Comprehensive Ophthalmologist Name Role Phone Jaden Crabtree DO Primary Care Provider [phone] Encounter Details Date Type Department Care Team (Late st Contact Info) Description 04/14/2024 Orders Only [facility] [address] [place] [address] Tracey Marin MD [address], [address] [address] Social History Tobacco Use Types Packs/Day Years [...] Description 07/26/2025 10:00 AM EDT Office Visit [facility] Neurology, A Department of [address] [place] [address], [address] [place] [address] [place] [address] [place] [address], [place] [address] [place] [address] 09/12/2025 11:00 AM EST Office Visit [facility], A Department of [address] [place] [address], [address] [place] [phone] Tony Martin MD [address] [facility], [place] [address] [place] [address] documented as of this encounter Goals Goal [...] 2:04 PM EDT) us Tracey Marin MD [facility] [facility] Final Result MANUALLY TRANSCRIBED RESULTS documented in this encounter Visit Diagnoses Not on filedocumented in this encounter Additional Health Concerns Assessment Noted Time PHQ-9 Depression Total Score: 12 024 1:16 PM EST A Body Mass Index follow-up plan has been documented for the patient 08/25/2022 6:32 AM EST documented as of this encounter Care Teams Comprehensive Ophthalmologist Relationship Specialty Start Date End Date Jaden Crabtree DO [address] [place] [address] PCP - General Family Medicine 01/17/21 documented as of this encounter
--- OUTSIDE RECORDS SUMMARY | 2025-07-24 14:40 | XMS_ITS | Encounter Summary ---
Author Organization [facility] Address [id number] [address] [place] [address] Care Team Providers Care Psychology Teacher Name Role Phone Jaden Crabtree DO Primary Care Provider [phone] Reason for Visit * Reason Onset Date Comments Med Refill 07/13/2025 Encounter Details Date Type Department Care Team (Late st Contact Info) Description 07/13/2025 Refill [facility] [address] [place] [phone] Andrés Bowden MD [address] [place] [address], [facility] [address] [place] [address] Spinal stenosis of lumbar region [...] * Telephone Encounter - Julianna Barnes - 07/13/2025 4:08 PM EDT Nurse contacted patient's spouse and informed her that there are refills remaining on prescription. documented in this encounter Plan of Treatment Upcoming Encounters Date Type Department Care Team (Late st Contact Info) Description 07/26/2025 10:00 AM EDT Office Visit [facility] Neurology, A Department of [address] [place] [phone] Lyn Lawton MD [address] [place] [address] [address], [address], [address] [place] [address] 09/12/2025 11:00 AM EST Office Visit [facility] Neurology, A Department of [address], [address], [address] [place] [address] Tony Martin MD [address] [place] [address] 101, [address], [address] [place] [address] documented as of this encounter Goals Goal Patient Goal Type Associated Problems Recent Progress Patient-Stated? Author Discharge home General Yes Skylar Chisholm, ALFONSO Note: Evaluation of progress towards goal: Plan to return home with supportive , after short acute inpatient rehabilitation, for post acute care. To get my medications adjusted and get stronger General Yes Sally Garcia RN Note: Evaluation of progress towards goal: [...] documented as of this encounter Care Teams Psychology Teacher Relationship Specialty Start Date End Date Jaden Crabtree DO [address] [place] [address] PCP - General Family Medicine 01/17/21 documented as of this encounter
--- OUTSIDE RECORDS SUMMARY | 2025-07-24 14:40 | XMS_ITS | Encounter Summary ---
Author Organization [facility] Address [facility]-[id number] [address] [place] [address] Care Team Providers Care Condemnation Engineer Name Role Phone Jaden Crabtree DO Primary Care Provider [phone] Reason for Visit * Reason Onset Date Comments Med Refill 01/08/2023 Encounter Details Date Type Department Care Team (Late st Contact Info) Description 01/08/2023 Refill [facility] [address] [place] [phone] Reena Cervantes, FARRAH-NATHEN [address] [place] [address] 101, [address], [address] [place], [place] [phone] Current moderate episode of major depressive disorder [...] 07/26/2025 10:00 AM EDT Office Visit [facility], A Department of [address], [address], [address] [place] [phone] yLn Lawton MD [address] [place] [address], [facility] [address] [place], [place] [phone] 09/12/2025 11:00 AM EST Office Visit [facility] Neurology, A Department of [address], [address], [address] [place] [phone] Tony Martin MD [address] [facility] [address], [address], [address] [place] [address] documented as of this encounter Goals Goal [...] documented as of this encounter Care Teams Condemnation Engineer Relationship Specialty Start Date End Date Jaden Crabtree DO [address] [place] [address] PCP - General Family Medicine 01/17/21 documented as of this encounter
--- OUTSIDE RECORDS SUMMARY | 2025-07-24 14:40 | XMS_ITS | Encounter Summary ---
Author Organization [facility] Address [address] [place] [address] Care Team Providers Care Sales Representative Metals Name Role Phone Jaden Crabtree Primary Care Provider [phone] Source Comments In the event this information is protected by the Federal Confidentiality of Alcohol and Drug AbusePatient Records regulations: The Federal rules restrict any use of the information to criminally investigate or prosecute any alcohol or drug abuse patient.[facility] Encounter Details Date Type Department Care Team (Late st Contact Info) Description 2023 [place] [address] Provider, [facility] Medicare Coverage of Physical Exams Social History Tobacco Use Types Packs/Day Years Used Date Smoking Tobacco: Every Day Cigarettes 1.5 42.6 Started: 12/07/1982 Smokeless Tobacco: Never Comments:currently 8 [...] place to sleep or slept in a group home (including now)? No 11/25/2022 Area Deprivation Index Answer Date Ross rded National Score (1-100), lower number is lower ri sk Not on file 09/23/2020 State Score (1-10), lower number is lower risk N ot on file 09/23/2020 Data from: https://www.neighborhoodatlas.medicine.[facility].edu/. Last address used for calculation Not [...] on filedocumented in this encounter Care Teams Sales Representative Metals Relationship Specialty Start Date End Date Jaden Crabtree [address] [place] [phone] PCP - General 06/10/02 documented as of this encounter
--- OUTSIDE RECORDS SUMMARY | 2025-07-24 14:40 | XMS_ITS | Encounter Summary ---
Author Organization [employer] [facility] tem Address [facility]-[id number] [address] [place] [address] Care Team Providers Care Yard Associate Name Role Phone Jaden Crabtree DO Primary Care Provider [phone] Encounter Details Date Type Department Care Team (Late st Contact Info) Description 01/28/2021 Orders Only [facility] [address] [place] [phone] Za Omer CMA Social History Tobacco Use [...] Description 07/26/2025 10:00 AM EDT [facility] Department of [facility] [address] [facility] [address], [address], [address] [place] [phone] Lyn Lawton MD [address] [place] [address] 101, [address], [address] [place] [address] 09/12/2025 11:00 AM EST Office Visit [facility] [address], [address] [place] [phone] Tony Martin MD [address] [place] [place] [address] 101, [address], [address] [place] [address] documented as of this encounter Visit Diagnoses Not on filedocumented in this encounter Additional Health Concerns Assessment Noted Time A Body Mass Index follow-up plan has been documented for the patient 01/18/2021 11:36 AM EDT documented as of this encounter Care Teams Yard Associate Relationship Specialty Start Date End Date Jaden Crabtree DO [address] [place] [address] PCP - General Family Medicine 01/17/21 documented as of this encounter
--- OUTSIDE RECORDS SUMMARY | 2025-07-24 14:40 | XMS_ITS | Clinical Summary ---
Author Organization [employer] tem Address [facility]-[id number] [address] 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 ([facility]) 2 tabs daily as directed 180 tablet [...] Encounters Date Type Department Care Team Description 07/13/2025 Refill [facility] [address] [place] [phone] Andrés Bowden MD Spinal stenosis of lumbar region with neurogenic claudication 06/06/2025 Telephone [facility], A Department of [facility] [address] [place] [address] [place] [address] Eliane Ken New Patient 04/26/2025 Orders Only [facility] - Neuro[facility]iology [address] [place] [address] [place] [address] Lyn Lawton MD Chronic intractable headache, unspecified headache type (Primary Dx) from Last 3 Months Immunizations Immunization Administration [...] Office Visit [facility], A Department of [facility] [address] [facility] [address], [address], [address] [place] [phone] Lyn Lawton MD [address] [place] [address], [place] [address], [address] [place] [address] 09/12/2025 11:00 AM EST Office Visit [facility], A Department of [address], [address], [address] [place] [address] Tony Martin MD [address] [place] [address], [facility] 101, [address], [address] [place] [address] Health Maintenance Due Date Last Done Comments Diabetic Ophthalmology Exam 1958 Statin Use: Cardiovascular 1958 Statin Use: Diabetic 1958 Diabetic Foot Exam 1976 Zoster (Shingles) Vaccine (2 of 2) 03/16/20192018 Fall Risk Screening 2023 COVID-19 Vaccine ( - 2024-2 6 season) 2025 10/15/2021, 01/09/2021, 12/13/2020 Influenza Vaccine 06/19/2025 11/21/2024, [...] and rehab Medical Devices Implanted Type Area Highwall Drill Operator Device Identifier Shelf Expiration Date Model / Serial / Lot Spinal Stimulator Insurance [employer]ARE [employer] [place] Advance Directives * Full Code (Latest Code Status on File) Date Activated Date Inactivated Comments 02/07/2021 1:34 PM 02/19/2021 4:48 PM * Full Code Date Activated Date Inactivated Comments 02/03/2021 2:46 PM 02/07/2021 1:08 PM Care Teams Consumer Electronics Merchandiser Relationship Specialty Start Date End Date Jaden Crabtree DO [address] [place] [address] PCP - General Family Medicine 01/17/21
--- OUTSIDE RECORDS SUMMARY | 2025-07-24 14:40 | XMS_ITS | Encounter Summary ---
Author Organization [facility] [employer] [facility] tem Address [facility]-[id number] [address] [place] [address] Care Team Providers Care Esthetician/Spa Coordinator Name Role Phone Michiramirez Jaden Dawson DO Primary Care Provider [phone] Encounter Details Date Type Department Care Team (Late st Contact Info) Description 09/28/2021 Orders Only [facility] [address] [place] [address] Shakeel Leiva MD Social History [...] Office Visit [facility], A Department of [facility] [address] [facility] [address], [address], [address] [place] [address] Lyn Lawton MD [address] [facility] 101, [address], [address] [place] [address] 09/12/2025 11:00 AM EST Office Visit [facility], A Department of [facility] [address] [facility] [address], [address], [address] [place] [phone] Tony Martin MD [address] [facility] [address], [address], [address] [place] [address] documented as of this encounter Goals Goal [...] documented as of this encounter Care Teams Esthetician/Spa Coordinator Relationship Specialty Start Date End Date Jaden Crabtree DO [address] [place] [address] PCP - General Family Medicine 01/17/21 documented as of this encounter
--- OUTSIDE RECORDS SUMMARY | 2025-07-24 14:40 | XMS_ITS | Encounter Summary ---
Author Organization [facility] Address [facility] [place] [facility]-[id number] [address] 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 Neurology, A Department of [address], [address], [address] [place] [phone] Lyn Lawton MD [address] [place] [address] 101, [address], [address] [place] [address] 09/12/2025 11:00 AM EST Office Visit [facility] Neurology, A Department of [address], [address], [address] [place] [address] Tony Martin MD [address] [place] [address] 101, [address], [address] [place] [address] documented as of this encounter Goals Goal [...] documented as of this encounter Care Teams Rockboard Lather Relationship Specialty Start Date End Date Jaden Crabtree DO [address] [place] [address] PCP - General Family Medicine 01/17/21 documented as of this encounter
--- OUTSIDE RECORDS SUMMARY | 2025-07-24 14:40 | XMS_ITS ---
Author Organization [facility] Address [address] [place] [address] Care Team Providers Care Manufacturing Engineer Paint Name Role Phone Jaden Crabtree DO Primary Care Provider [phone] Bhupendra Painter MD Unavailable Active Problems Problem Noted Date Diagnosed Date Shock 06/15/2025 Hematemesis 06/15/2025 Marginal ulcer 06/15/2025 Aftercare following surgery of the musculoskelet al [...] rotator cuff 08/02/2018 Iron deficiency anemia nadiya manzo to inadequate dietary iron intake 06/16/2018 Nicotine [...]
--- OUTSIDE RECORDS SUMMARY | 2025-07-24 14:40 | XMS_ITS | Patient Health Record ---
Author Organization [facility] Address [address] [place] [address] Care Team Providers Care Biology Specialist Name Role Phone PCP, NO Primary Care Provider Kami Das Clair Charlottemelly Unavailable [phone] Allergies Allergen (clinical drug ingredient) Drug/Non Drug [...] Problem Status W/U Status Risk Notes Problem 431851829 Aftercare following surgery of the musculoskeletal system (Z47.89) Active confirmed Problem 73296363 Radiculopathy, cervical region (M54.12) Active confirmed Problem Bowel incontinence (38353593) Bowel incontinence (R15.9) Active confirmed Problem Spinal stenosis of lumbar region (93451689) Spinal stenosis, lumbosacral region (M48.07) Active confirmed Problem 68213510 Other intervertebral disc degeneration, lumbosacral region (M51.37) Active confirmed Problem 07271569171300748 Sciatica, righ t side (M54.31) Active confirmed Problem 75931711 Sciatica, left side (M54.32) Active confirmed Problem Urinary incontinence (497310111) Urinary incontinence (R32) Active confirmed Problem 09714356 Other cervical disc degeneration at C4-C5 level (M50.321) Active confirmed Problem 24410453 Other cervical disc degeneration at C5-C6 level (M50.322) Active confirmed Problem 64187747 Other cervical disc degeneration, high cervical region (M50.31) Active confirmed Problem Scoliosis of lumbar spine (377782675) Other form of scoliosis of lumbar spine (M41.86) Active confirmed Problem History of arthrodesis (961752878) 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
--- OUTSIDE RECORDS SUMMARY | 2025-07-24 14:40 | XMS_ITS | Encounter Summary ---
Author Organization [facility] [employer] [facility] Address [facility]-[id number] [address] [place] [address] Care Team Providers Care Home Visit Field Care Manager Name Role Phone Jaden Crabtree DO Primary Care Provider [phone] Encounter Details Date Type Department Care Team (Late st Contact Info) Description 03/02/2025 Orders Only [facility] [address] [facility] [address] [place] [address] Tracey Marin MD [address], [facility] [address] [place] [address] Social History Tobacco Use Types Packs/Day Years [...] 07/26/2025 10:00 AM EDT Office Visit [facility] Neurology, A Department of [address] [place] [address], [address], [address] [place] [phone] Lyn Lawton MD [address] [place] [address], [place] [address], [address] [place] [address] 09/12/2025 11:00 AM EST Office Visit [facility] Neurology, A Department of [address] [place] [address], [address], [address] [place] [phone] [place] [address] [place] [address], [place] [address], [address] [place] [address] documented as of this encounter Goals Goal [...] PM EDT) us Mohamed F Tomas MD [place] [facility] Final Result documented in this encounter Visit Diagnoses Not on filedocumented in this encounter Additional Health Concerns Assessment Noted Time PHQ-9 Depression Total Score: 21 024 11:29 AM EST A Body Mass Index follow-up plan has been documented for the patient 10/07/2024 3:14 PM EST documented as of this encounter Care Teams Home Visit Field Care Manager Relationship Specialty Start Date End Date Jaden Crabtree DO [address] [place], [place] [id number] PCP - General Family Medicine 01/17/21 documented as of this encounter
--- OUTSIDE RECORDS SUMMARY | 2025-07-24 14:56 | XMS_ITS | CCD ---
Author Organization [facility] ion [facility] Care Team Providers Care Label Press Operator Name Role Phone RICCHETTI, SERGEY T Unavailable Unavailable RICCHETTI, SERGEY T Unavailable Unavailable RICCHETTI, SERGEY T Unavailable Unavailable RICCHETTI, SERGEY T Unavailable Unavailable REAGAN BLAIR Unavailable Unavailable NADEENSWATI MORSE M Unavailable Unavailable NADEEN SWATI M Unavailable Unavailable LUISITO RIVERA Unavailable Unavailable UNKNOWN, PROVIDER Unavailable Unavailable UNKNOWN, PROVIDER Unavailable Unavailable SELF, REFERRED Unavailable Unavailable ELLEN CRABTREE Unavailable Unavailable Ellen Crabtree Unavailable Unavailable Unavailable Lashon Hamm Primary Care Physician Lashon Justin Unavailable Unavailable Lashon Hamm Primary Care Physician Ellen Kiran Primary Care Provider [phone] Ellen Crabtree DO Primary Care Provider Unavailab le AKSHAT, SELVON F Admitting Unavailable AKSHAT, SELVON F Attending Unavailable ELLEN CRABTREE Primary Care Unavailable EVELINA PARRA A Consulting Unavailable RADAMES TOLENTINO T Consulting UnavailBALA Brito Consulting Unavailable TUCKER ROBBINS Consulting Unavailable AKSHAT, SELVON F Referring Unavailable ELLEN CRABTREE Primary Care Unavailable AKSHAT, SELVON F Referring Unavailable ELLEN CRABTREE Primary Care Unavailable Ellen Crabtree Unavailable Yifan Gama Unavailable Ellen Crabtree Primary Care Provider [phone] ELLEN CRABTREE Primary Care Unavailable SUSIE LOYA Admitting Unavailable PB REDMOND Attending Unavailable SUSIE LOYA Admitting Unavailable MELINDA NICK Attending Unavailable OUMOU ALONZO Referring Unavailable LEYDA, ELLEN MCCOY Primary Care Unavailable ELLEN CRABTREE Primary Care Physician [phone] MISC, DR MYERS Consulting Unavailable MISC, DR [...] Unavailable IBARRA ., DR PARRA Consulting Unavailable TRESHERONT Consulting Unavailable ELLI II, WICHO Consulting Unavailable HOY ., DR DANG Attending Unavailable HOY ., DR DANG Consulting Unavailable HOY ., DR DANG Admitting Unavailable KUNS, DR HUGHES Primary Care Unavailable WEST, DR LIZETH Momin Consulting Unavailable NADERER, DR JOSE ALEJANDRO Crowe Consulting Unavailable CHRISTIAN, EN Consulting Unavailable DIAB ., MERCEDEZ Consulting Unavailable Kundavion, DO Hughes Primary Care Provider LyDO Bernice Attending Provider IBARRA, Fidel R Admitting Unavailable [...] Attending Unavailable IBARRA, Fidel R Attending Unavailable IBRARA, Fidel R Attending Unavailable IBARRA, Fidel R Attending Unavailable RODRI, LYN E Attending Unavailable IBARRA, Fidel R Attending Unavailable IBARRA, Fidel R Attending Unavailable Orzech, Pippa X Attending Unavailable IBARRA, Fidel R Admitting Unavailable IBARRA, Fidel R Attending Unavailable IBARRA, Fidel R Admitting Unavailable IBARRA, Fidel R Attending Unavailable COOK, Carl P Attending Unavailable COOK, Carl P Referring Unavailable IBARRA, Fidel R Attending Unavailable IBARRA, Fidel R Attending Unavailable Galea, Madeline Gomez Attending Unavailable RODRILYN BARRAZA Attending Unavailable Ellen Crabtree DO Primary Care Provider BILL MACE Admitting Unavailab le RODRI, BILL Crum Attending Unavailab le Orzech, Pippa X Attending Unavailable RODRI, BILL Crum Attending Unavailab le RODRI, BILL Crum Attending Unavailab le RODRI, BILL Crum Attending Unavailab le RODRI, BILL Crum Attending Unavailab le Ellen Crabtree DO Primary Care Provider [phone] Ellen Crabtree DO Primary Care Provider [phone] Benitez Ortega DO Emergency Provider [phone] Ellen Crabtree DO Attending Provider Heidy Marin MD Referring Provider Ellen Crabtree DO Primary Care Provider UnavailMercedez Botello MD Attending Provider Ellen Crabtree DO Primary Care Provider Ellen Crabtree DO Attending Provider Heidy Marin MD Referring Provider Mercedez Cramer MD Attending Provider LYN MACE Attending Unavailable LYN MACE Attending Unavailable LYN MACE Attending Unavailable LYN MACE Attending Unavailable LYN MACE Admitting Unavailable Romel Leonardo MD Attending Provider Unavailable Primary Care Provider UnavailLYN Bird Attending Unavailable ELLEN CRABTREE Referring Unavailable ELLEN CRABTREE Primary Care Unavailable SAMIRA BOWDEN Attending Unavailable KUNS, ELLEN R Referring Unavailable KUNS, ELLEN R Primary Care Unavailable BEATRIZHEIDY F Attending Unavailable KUNS, ELLEN R Referring Unavailable KUNS, ELLEN R Primary Care Unavailable AMSDELL, LYN L Referring Unavailable KUNS, ELLEN R Primary Care Unavailable AMSDELL, LYN L Referring Unavailable KUNS, ELLEN R Primary Care Unavailable RODRI, LYN E Attending Unavailable RODRI, LYN E Attending Unavailable RODRI, LYN E Attending Unavailable Maru, Michelle Attending Unavailable RODRI, LYN E Attending Unavailable Maru, Michelle Attending Unavailable Maru, Michelle Attending Unavailable RODRI, LYN E Attending Unavailable RODRI, LYN E Attending Unavailable RODRI, LYN E Attending Unavailable Madeline Foster Attending Unavailable Kuns DO, Ellen Primary Care Provider Kuns DO, Ellen Attending Provider Marker Abdoulaye LU Attending Provider Steven Gonzales MD Admit Provider Steven Gonzales MD Other Provider Neva RN, Aleshia Other Provider Unavailable Melisa RN, Rose Other Provider Unavailable Alex RN, Nellie Other Provider Unavailable Kathy Lewis RN Other Provider Unavailable Leonard HAMILTON, Lorraine Other Provider Unavailable Dara Gonzales RN Other Provider Unavailable Sandy Carlson MD Other Provider Tai Richardson DO Other Provider Harvey Pat MD Other Provider [phone] Skinny Jensen DO Other Provider David Logan MD Other Provider Jacinta Sorensen MD Other Provider Romel Rojas DO Other Provider Unavailab Dillan Chambers MD Other Provider Unavailable Miryam Bell APRN Other Provider [phone] Lamont Sky MD Other Provider [phone] Sophie Trujillo MD Other Provider Unavailable Vandana Kerr MD Other Provider Romel Arevalo DO Other Provider Emelina Ojeda MD Other Provider Enrico Hammer MD Other Provider Italo PT SKILLED-C, Elli Gomez Other Provider George YAN, Ferny Navarro Other Provider Unavailable Quintin Hanley MD Other Provider Arvind Sanders MD Other Provider Gunnar Samano MD Other Provider Unavailable Hamzah Young DO Other Provider Chris YAN, Nicolasa Other Provider Ernesto DOVan Other Provider Ashok YBARRA, Petty Navarro Other Provider Paradise Arias APRN Other Provider Paula Webb APRN Other Provider Ambar YBARRA, Radha Other Provider Unavailable Chato Rodriguez MD Other Provider Sergio Shah DO Other Provider Jaam Espinoza MD Other Provider Joshua Martin MD Other Provider Maribeth Zhang APRN Other Provider Unavailable Jv Camacho MD Other Provider Steven Brenner MD Other Provider Dillan Arce MD Other Provider Jesus Watson MD Other Provider Adali Tineo APRN Other Provider Ruel Goncalves APRN Other Provider Emelina HAMILTON, Fidelia Other Provider Unavailable Heriberto Campos MD Attending Provider Steven Gonzales MD Attending Provider Dipti Mercedez A Attending Unavailable Dipti, Mercedez A Admitting Unavailable Heidy Marin Referring Unavailable Barbie Crabtreett Attending Unavailable Kuns, Ellen Primary Care Unavailable Michis, Ellen Admitting Unavailable Kuns, Ellen Primary Care Unavailable Romel Leonardo Attending Unavailable Romel Leonardo Admitting Unavailable Aleshia Hooks Consulting Unavailable Leyda, Ellen Primary Care Unavailable Steven Gonzales Admitting Unavailable Steven Gonzales Attending Unavailable Rose Vincent Consulting Unavailable Nellie Johnson Consulting Unavailable Kathy Lewis Consulting Unavailable Lorraine Valle Consulting Unavailable Dara Gonzales Consulting Unavailable Sandy Carlson Consulting Unavailable Tai Richardson Consulting Unavailable Harvey Pat Consulting Unavailable Skinny Jenesn Consulting UnavailDavid Dominique Consulting Unavailable Jacinta Sorensen Consulting Unavailable Romel Rojas Consulting Unavailable Dillan Rodriguez Consulting Unavailable Miryam Bell Consulting UnavailLamont Muro Consulting Unavailable Sophie Trujillo Consulting Unavailable Vandana Kerr Consulting Unavailable Romel Arevalo Consulting Unavailable Emelina Ojeda Consulting Unavailable Enrico Hammer Consulting Unavailable Elli Puckett Consulting Unavailable Ferny Vazquez Consulting Unavailable Quintin Hanley Consulting Unavailab Arvind Fitch Consulting Unavailable Gunnar Samano Consulting Unavailable Hamzah Young Consulting Unavailable Nicolasa Perez Consulting Unavailable Van Orozco Consulting Unavailable XiangomaPetty hinkle Consulting Unavailable Paradise Arias Consulting Unavailable Paula Webb Consulting Unavailable Alaserinaad Alaa Consulting Unavailable Chato Rodriguez Consulting Unavailable Sergio Shah Consulting Unavailable Jama Espinoza Consulting Unavailable Joshua Martin Consulting Unava indiraable Maribeth Zhang Consulting Unavailable Jv Camacho Consulting Unavailable Steven Brenner Consulting Unavailable Dillan Arce Consulting Unavailable Jesus Watson Consulting Unavailable Adali Tineo Consulting Unavailable Bolzan-Jason Nicolettjohn Consulting Unavaila Fidelia Willson Consulting Unavailable Keister, Benitez A Admitting Unavailable Keister, Benitez A Attending Unavailable Ellen Crabtree Primary Care Unavailable LUIS, ROBERTH Referring Unavailable SAFI, DEVEN Referring Unavailable ROSENDALE, REYGHAN Referring Unavailable GHAZALEH, LISANDRO Attending Unavailable KARABIN, SUSANNAH Attending Unavailable LUIS, ROBERTH Referring Unavailable NAZZAL, HERMINIO Referring Unavailable RCIHARD, LORA Attending Unavailable RICHARD, LORA Admitting Unavailable LUIS, ROBERTH Referring Unavailable SAFI, DEVEN Referring Unavailable RICHARD, LORA Referring Unavailable BRAD, JAC Attending Unavailable RICHARD, LORA Referring Unavailable LUIS, ROBERTH Attending Unavailable RICHARD, LORA Referring Unavailable ROSENDALE, REYGHAN Referring Unavailable CLARK, VIVIAN Attending Unavailable RICHARD, LORA Referring Unavailable RICHARD, LORA Attending Unavailable LUIS, ROBERTH Attending Unavailable MARKER, ABDOULAYE Gomez Referring Unavailable TONY, SUSAN Admitting Unavailable LUIS, ROBERTH Referring Unavailable SAFI, DEVEN Referring Unavailable Allergies Allergy Classification Reported Allergen(s) Allergy Type Date of Onset Reaction(s) Facility (20 sources) celecoxib; Translations: [CELECOXIB] Drug Allergy 06-04-20 17 Rash, Hives, GI Upset, Weal (disorder) [facility] Repository (20 sources) clonazePAM; Translations: [CLONAZEPAM] Drug Allergy 06-04-20 17 Itching, Shortness Of Breath, Dyspnea (finding) [facility] Repository (20 sources) levoFLOXacin; Translations: [LEVOFLOXACIN] Drug Allergy 01-30-20 10 Hives, Shortness Of Breath, Dyspnea (finding) [facility] Repository (9 sources) moxifloxacin; Translations: [MOXIFLOXACIN HCL] Drug Allergy 07-20-20 06 Rash, Hives, Itching, Shortness of Breath [facility] Repository (20 sources) ERYTHROMYCIN BASE; Translations: [ERYTHROMYCIN BASE] Propensity to adverse reactions to drug (disorder) 03-06-20 04 Hives, Shortness of Breath [facility] Repository (7 sources) celecoxib; Translations: [CeleBREX] Drug Allergy 06-25-20 12 [facility] Repository (1 source) erythromycin Drug Allergy 06-25-20 12 [facility] Repository (20 sources) levoFLOXacin Drug Allergy 06-25-20 12 Unknown [facility] Repository (7 sources) moxifloxacin; Translations: [Avelox] Drug Allergy 06-25-20 12 [facility] Repository (5 sources) celecoxib; Translations: [CeleBREX CAPS] Drug Allergy [place] [address] DO Work Phone: (5 sources) clonazePAM; Translations: [KlonoPIN TABS] Drug Allergy [place] [address] DO Work Phone: (5 sources) levoFLOXacin; Translations: [Levaquin] Drug Allergy [place] [address] DO Work Phone: (20 sources) moxifloxacin; Translations: [Avelox] Drug Allergy 07-19-20 06 Hives, Shortness Of Breath, Dyspnea (finding), Eruption of skin (disorder), Itching (finding), Urticaria (disorder), Weal (disorder), Itching, Rash [facility] (5 sources) Erythromycin Derivatives; Translations: [Erythromycin Derivatives] Allergy to drug (finding) [place] [address] DO Work Phone: (2 sources) celecoxib; Translations: [Celebrex] Drug Allergy [place] (7 sources) clonazePAM; Translations: [Klonopin] Drug Allergy [facility] Repository (20 sources) Erythromycin; Translations: [erythromycin] Drug Allergy 01-18-20 21 Itching, Nausea And Vomiting, Nausea (finding) [place] Other (2 sources) levoFLOXacin; Translations: [Levaquin] Drug Allergy [place] (2 sources) moxifloxacin; Translations: [Avelox] Drug Allergy [place] (20 sources) pimavanserin; Translations: [PIMAVANSERIN] Drug Allergy 08-23-20 20 Hives [facility] (20 sources) moxifloxacin; Translations: [moxifloxacin] Drug Allergy 07-19-20 06 Unknown Reaction, Hives [facility] Medications Current Medications Medication Drug Class(es) Dates Sig (Normalized) Sig (Original) acetaminophen 500 mg oral tablet (20 sources) Start: 07-17-2025 take 2 tablets by mouth three times daily Start: 04-19-2023 End: 06-28-2025 take 2 tablets by mouth every six hours Acetaminophen (Tylenol) 325 mg tablet Discontinued 650 MG PO Every 6 hours January 06, 2024 12:00am June 28, 2025 2:11pm Start: 04-19-2023 End: 01-06-2024 take 650 mg [...] EDING TUBE route three times daily. acetaminophen 300 mg / butalbital 50 mg / caffeine 40 mg oral capsule (1 source) Barbiturate, Central Nervous System Stimulant, Methylxanthine Start: take 1 capsule by mouth every six hours as needed for pain acetaminophen 500 mg / caffeine 65 mg oral tablet (20 sources) Central Nervous System Stimulant, Methylxanthine Start: take 2 tablets by mouth every six hours as needed acetaminophen-c affeine (EXCEDRIN TENSION HEADACHE) 500-65 mg tablet Take 2 tablets by mouth every 6 (six) hours as needed (Migraine). 90 tablet 02/19/2021 Active [id number] 200 actuat albuterol 0.09 mg/actuat metered dose inhaler (20 sources) beta2-Adrenergic Agonist Start: 5 Start: 12-14-2024 End: 06-28-2025 Albuterol Sulfate (Ventolin Hfa) 90 mcg/actuation HFA aerosol inhaler Discontinued 1 INH INHALATION Every 6 hours as needed for shortness of breath or wheezing 8.5 December 14, 2024 1:00am June 28, 2025 2:42pm Start: 01-06-2024 End: 02-11-2024 take 3 mL [...] # 30 tab(s), Refills(s) 0, Pharmacy: [id number], 175, cm, 01/16/23 10:13:00 EDT, Height/Length Dosing, 92, kg, 01/16/23 10:13:00 EDT, Weight Dosing Start Date: 01/20/23 Status: Ordered augmented betamethasone 0.5 mg/ml topical cream (20 [...] Acid Decarboxylation Inhibitor, Aromatic Amino Acid Start: 06-28-2025 take 3 tablets by mouth at bedtime Start: 01-06-2024 Carbidopa-Levo dopa 25-100 mg tablet extended release Active 1 [...] mg per CR tablet Indications: Parkinson's disease ([facility]) TAKE 1 TABLET BY MOUTH AT 2AM, 2 TABLETS AT 6AM AND 10AM, 1 TABLET AT 2PM, 6PM, AND 10PM. TAKE WITH SINEMET IR 240 tablet 11 08/31/2024 Active Start: 01-16-2023 End: 01-06-2024 Carbidopa-Levodopa 25-100 mg Tablet Extended Release Discontinued 2 TAB PO March 23, 2023 12:00am January 06, 2024 4:08pm Start: 11-04-2022 take 2 tablets by [facility] once in the morning, then take 2 [...] 25-100 mg Tablet Discontinued 2 TAB PO BID@February 18, 2022 12:00am January 06, 2024 4:08pm Start: 02-13-2022 End: 11-23-2024 carbidopa-levodopa (SINEMET) 25-100 mg per tablet Indications: Parkinson's disease ([facility]) TAKE 2 TABLETS BY MOUTH AT 6AM [...] tablet Indications: PD (Parkinson's disease) ([facility]) Take 1.5 tablets by mouth four times daily. 540 tablet 1 07/28/2019 Active Start: 02-17-2019 End: 01-06-2024 Carbidopa-Levodopa 25-100 mg tablet Discontinued 1 TAB PO February 17, 2019 12:00am January 06, 2024 [...] four times daily. Take 2 tablets by [facility] at 6 am, 2 tablets at 10 am, and 1 tablet at 2 pm, 6 pm, 10 pm and 2 am. cephalexin 500 mg oral capsule (2 sources) Cephalosporin Antibacterial take 1 capsule by mouth every eight hours Cephalexin 500 MG 1 capsule Orally Three times a day Active compression stockings (20 sources) Start: 1 compression stockings 20-30 mmhg knee high wear daily Jul, Active Start: 08-06-[address] [place] 20-30 mmhg knee high wear daily for 90 days Jul, Active Cpap (Continuous Positive rway Pressure) (4 sources) Start: 01-06-2024 Cpap (Continuo us Positive Airway Pressure) Active 0 .Route January 06, 2024 12:00am As directed Cpap (Continuous Positive rway Pressure) unit (5 sources) Start: 01-06-2024 Cpap (Continuo us Positive Airway Pressure) unit Active 0 .Route January 06, 2024 12:00am As directed Start: 01-06-2024 Cpap (Continuo us Positive Airway Pressure) unit Active 0 .Route January 05, 2024 11:00pm As directed CPAP Machine (20 sources) CPAP Machine Active diclofenac sodium 0.01 mg/mg topical gel (20 sources) Nonsteroidal Anti-inflammatory Drug Start: 5 apply 2 g topically twice daily Start: 02-17-2019 End: 07-17-2025 take 1 tablet by mouth twice daily Diclofenac Sodium 75 mg tablet,delayed release (DR/EC) Discontinued 75 MG PO Twice daily 180 90 June 14, 2025 4:27pm July 17, 2025 11:05am diclofenac sodiu m oral Comment on above: diclofenac sodium 75 mg tablet,delayed release Take 1 tablet twice a day by oral route for 90 days. dicyclomine hydrochloride 10 mg oral capsule (1 source) Anticholinergic Start: 025 take 1 capsule by mouth twice daily doxycycline hyclate 100 mg oral capsule (2 sources) Tetracycline-class Drug Start: 023 End: 023 take 1 capsule by mouth twice daily doxycycline hyclate 100 mg Cap 100 mg = 1 cap(s), Oral, BID, X 10 day(s), # 20 cap(s), Refills(s) 0, Pharmacy: [id number], 175, cm, 03/20/23 9:07:00 EDT, Height/Length Dosing, 92, kg, 03/20/23 9:07:00 EDT, Weight Dosing Start Date: 05/25/23 Stop Date: 06/04/23 Status: Ordered fludrocortisone acetate 0.1 mg oral tablet (20 sources) Start: End: take 0.2 mg by mouth once daily Fludrocortisone Discontinued 0.2 MG PO Daily 60 30 April 19, 2023 12:00am January 06, 2024 4:09pm Start: 02-23-2023 End: 07-14-2024 fludrocortisone (FLORINEF) 0 .1 mg tablet Indications: 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 ([facility]) 2 tabs daily as directed 180 tablet 3 07/15/2024 Active Start: 12-06-2022 End: 04-05-2025 take 1 tablet by mouth once daily Comment on above: Take 1 tablet by brendan th once daily. fluticasone propionate 0.05 mg/actuat metered dose nasal spray (17 sources) Corticosteroid Start: 01-06-2024 Start: 09-02-2023 take 1 spray(s) nasa l [...] 0-3 Units lidocaine 0.04 mg/mg medicated patch (20 sources) Antiarrhythmic, Amide Local Anesthetic Start: 07-17-2025 apply 1 dose topically once daily Start: 04-19-2023 End: 01-22-2024 apply 1 dose [...] 18, 2022 12:00am March 07, 2022 9:03am magnesium citrate 58.2 mg/ml oral solution (1 source) Start: 03-14-2025 End: 03-14-2025 take 148 mL by mouth once magnesium citrate (CITROMA) solution Indications: Constipation, unspecified constipation type Take 148 mL by mouth once for 1 dose. 148 mL 03/14/2025 03/14/2025 Active methenamine hippurate 1000 mg oral tablet (2 sources) Start: 01-30-2025 midodrine hydrochloride 5 mg oral tablet (20 sources) alpha-Adrenerg ic Agonist Start: 07-17-2025 take 2 tablets by mouth twice daily Start: 03-24-2025 midodrine (PRO AMATINE) 5 mg tablet Indications: Orthostasis Check blood pressure at 8 am, 12 pm and 6 pm. If top number is 110 or lower take 3 tablets (15 mg). If top number 111-149 take 2 tablets (10 mg) if top number is 150 or higher DO NOT TAKE. 810 tablet 3 03/24/2025 Active Start: 01-06-2024 End: 02-10-2024 Midodrine Active 5 MG PO Fou r times daily February 10, 2024 1:14pm FreeTextSi mg q am, 10 mg afternoon, 10mg evening Orally tid; Start: 09-02-2023 End: 07-17-2025 Midodrine 5 mg tablet Discon tinued 5 MG PO As Directed April 05, 2025 1:51pm July 17, 2025 11:06am FreeTextSi mg q am, 10 mg afternoon, 15 mg evening Orally Start: 03-23-2023 End: 01-06-2024 Midodrine 5 mg tablet Discon tinued 10 MG PO March 23, 2023 2:15pm [...] hrs of bedtime Start: 01-16-2023 End: 01-06-2024 take 1 tablet by mouth once daily at bedtime Midodrine 5 mg Tablet Discontinued 15 MG PO March 23, 2023 [...] Start: 12-06-2022 take 3 tablets by mo [facility] once daily midodrine (PROAMITINE) 5 mg [...] mg Active take 3 tablets by mo [facility] every twelve hours Midodrine HCl 5 [...] .ROUTE January 06, 2024 12:00am As directed 1 ml morphine sulfate 2 mg/ml cartridge [...] BID, # 5 cap(s), Refills(s) 0, Pharmacy: [facility], 175, cm, 03/20/23 9:07:00 EDT, Height/Length Dosing, 92, kg, 03/20/23 9:07:00 EDT, Weight Dosing Start Date: 07/22/23 Status: Ordered Start: 06-11-2023 End: 06-21-2023 take 1 capsule by mouth twice daily Macrobid 100 mg Cap 100 mg = 1 cap(s), Oral, BID, X 10 day(s), # 20 cap(s), Refills(s) 0, Pharmacy: [facility], 175, cm, 03/20/23 9:07:00 EDT, Height/Length Dosing, 92, kg, 03/20/23 9:07:00 EDT, Weight Dosing Start Date: 06/11/23 Stop Date: 06/21/23 Status: Ordered ondansetron 4 mg disintegrating oral tablet (20 sources) Serotonin-3 Receptor Antagonist Start: 06-28-2025 take 1 tablet by mouth every eight hours as needed for nausea and vomiting Start: 01-13-2025 End: 01-30-2025 take 1 tablet by mouth once daily Ondansetron 4 mg tablet,disintegrating Discontinued 4 MG PO Daily January 13, [...] every six hours as needed Ondansetron Hcl 4 mg tablet Discontinued 4 MG PO January 06, 2024 [...] disintegrating tablet 4 mg (1 source) Start: ondansetron (ZOFRAN-ODT) disintegrating tablet 4 mg oxyCODONE hydrochloride 5 mg oral tablet (12 sources) Opioid Agonist Start: take 1 tablet by mouth every six hours as needed for pain Start: 04-19-2023 End: 01-06-2024 take 1 tablet by mouth every four hours as needed for pain Oxycodone 5 mg Tablet Discontinued 5 MG PO Every 4 hours as needed for Pain (Scale Score 7-10) 42 7 April 19, 2023 January 06, 2024 4:09pm take 1 tablet by brendan th every six hours oxyCODONE HCl 5 MG 1 tablet as needed Orally every 6 hrs Active pantoprazole 40 mg delayed release oral tablet (20 sources) Proton Pump Inhibitor Start: 07-17-2025 take 1 tablet by mouth once daily Start: 04-19-2023 End: 02-11-2024 take 1 tablet [...] oral route once daily unsure of dose polyethylene glycol 3350 170 00 mg powder for oral solution (20 sources) Osmotic Laxative Start: 07-17-2025 Start: 01-06-2024 End: 01-22-2024 Polyethylene Glycol 3350 17 gram/dose powder Discontinued 17 GM PO As Directed January 06, 2024 12:00am January 22, 2024 9:18am FreeTextSig: as directed Orally; Note: Source Status: Taking; Provider: Leyda Hughes ( ) Start: 02-07-2022 End: 01-22-2024 Polyethylene Glycol 3350 (He althylax) 17 gram Powder In Packet Discontinued 17 GM PO Daily as needed for Constipation 0 April 19, 2023 12:00am January 06, 2024 4:10pm Comment on above: Take 1 Packet by [facility] once daily. Dissolve dose in 4 - 8 ounces of liquid and take as directed. Polyethylene Glycol 3350 17 GM/SCOOP (3 sources) Polyethylene Gly col 3350 17 GM/SCOOP as directed Orally Active potassium citrate 15 meq extended release oral tablet (20 sources) Start: take 1 tablet by mouth twice daily Start: 01-06-2024 End: 01-30-2025 take 1 tablet by mouth twice daily Potassium Citrate 15 mEq tablet extended release Discontinued 15 MEQ PO Twice daily 180 February 02, 2024 9:25am January 30, 2025 2:10pm Start: 09-22-2023 take 1 tablet by brendan every twelve hours Potassium Citrate ER 15 [...] Take one(1) tablet t hree times daily. pyridostigmine bromide 60 mg oral tablet (7 sources) Start: 03-31-2025 take 1 tablet by mouth three times daily Rx Discharge Order Notice (1 source) Start: 07-17-2025 SUMAtriptan 50 mg oral tablet (20 sources) Serotonin-1b and Serotonin-1d Receptor Agonist Start: 06-28-2025 take 1 tablet by mouth every two hours Start: 09-30-2024 take 1 tablet by brendan th once as needed SUMAtriptan (IMITREX) 50 mg [...] # 30 cap(s), Refills(s) 11, Pharmacy: [id number], 177, cm, 03/15/24 11:26:00 EDT, Height/Length Dosing, 95.3, kg, 03/15/24 11:26:00 EDT, Weight Dosing Start Date: 07/25/24 Status: Ordered Quantity: 30.0 Unit: cap(s) Repeat number: 12 take 1 capsule by [facility] every twenty-four hours in the morning tolterodine LA (DETROL LA) 4 mg 24 hr capsule Take 1 capsule (4 mg total) by mouth in the morning. Active Detrol LA 2 mg c apsule,extended release unsure of dose Comment on above: Take 4 mg by mouth o nce daily. traMADol hydrochloride 50 mg oral tablet (20 sources) Opioid Agonist Start: End: take 1 tablet by mouth every six [...] 04/13/2024 07/31/2024 Discontinued (Reorder) Start: 01-06-2024 End: 04-05-2025 take 1 tablet by mouth twice daily as needed for pain Tramadol 50 mg tablet Discontinued 50 MG PO Twice daily as needed for pain 60 30 February 10, 2024 1:40pm April 05, 2025 2:25pm Start: 11-16-2023 End: 03-15-2024 take 1 tablet [...] October 14, 2019 11:27am trifluridine 10 mg/ml ophtha lmic solution (5 sources) Nucleoside Analog Antiviral, Nucleoside Metabolic Inhibitor Start: 10-03-2024 Start: 10-03-2024 Trifluridine 1 % drops Active 1 DROPS EYE-LEFT Every 2 hours 7.5 October 03, 2024 1:00am administer 9 doses per day while awake 24 hr venlafaxine 75 mg extended release [...] September 12, 2024 12:24pm Start: 03-23-2023 End: 06-09-2025 take 1 capsule by mouth once daily Start: 03-23-2023 End: 03-23-2023 take 1 tablet [...] of major depressive disorder without prior episode ([facility]) Take 1 capsule (75 mg total) by mouth in the morning. 90 capsule 3 01/09/2023 11/16/2023 Discontinued (Dose adjustment) vitamin b6 100 mg oral table t (1 source) Start: 07-17-2025 take 1 tablet by brendan th once daily zinc oxide 0.2 mg/mg topical ointment (20 sources) Start: 07-17-2025 Start: 01-06-2024 End: 07-17-2025 Zinc Oxide 20 % ointment Dis continued 1 APPLIC TOPICAL As Directed January 06, 2024 12:00am July 17, 2025 11:06am Start: 04-19-2023 End: 01-06-2024 Zinc Oxide 20 [...] 1700, Until Discontinued Start: 01-13-2019 End: 07-25-2024 take 1 tablet by mouth three times daily Acarbose 25 mg tablet Discontinued 25 MG PO Three times daily January 06, 2024 12:00am March 29, 2024 12:53pm FreeTextSi tablet Orally TID; Note: Source Status: Taking; Refills: 1; Provider: Leyda Hinkle Start: 12-29-2007 End: 12-06-2022 acarbose(PRECOSE 25 MG TAB) Indications: Hypoglycemia, unspecified , Obesity, unspecified Take one(1) tablet three(3) times daily. 1 month supply 3 12/29/2007 12/06/2022 Discontinued Comment on above: Take one(1) tablet t hree(3) times daily. acetaminophen 325 mg / oxyCODONE hydrochloride 5 mg oral tablet (11 sources) Opioid Agonist Start: End: take 1 tablet by mouth every six hours as needed for pain Oxycodone-Acetaminoph en 5-325 mg Tablet Discontinued 1 TAB PO [...] breath. amitriptyline hydrochloride 100 mg oral tablet (12 sources) Tricyclic Antidepressant Start: 02-17-2019 End: 08-29-2021 [...] Nonsteroidal Anti-inflammatory Drug Start: 05-04-20 End: 11-20-19 23 take 1 tablet by mouth twice daily aspirin, enteric coated (ASPIRIN, ENTERIC COATED) 81 mg EC tablet Take 1 tablet by mouth twice daily. 84 tablet 0 05/04/2020 11/20/2022 Discontinued Comment on above: Take 1 tablet by brendan th twice daily. atorvastatin 10 mg oral tablet (20 sources) HMG-CoA Reductase Inhibitor Start: 09-17-20 End: 09-19-20 24 take 1 tablet by mouth once daily Atorvastatin 10 mg tablet Discontinued 10 MG PO Daily January 06, 2024 12:00am September 19, 2024 4:02pm FreeTextSi tablet Orally Once a day; Note: Source Status: Refill; Refills: 3; Provider: Leyda Hinkle Comment on above: Take 10 mg by mouth once daily. azithromycin 250 mg oral tablet (5 sources) Macrolide Antimicrobial Start: 10-18-20 End: 12-30-19 25 Azithromycin (Zithromax Z-Josué) 250 mg tablet Discontinued 0 PO .COMPLEX 6 October 18, 2024 1:00am December 29, 2024 1:41pm For 250 mg dose pack: take 500 mg today (day 1), then 250 mg for 4 days (days 2-5) PO Balsam [place] [employer] (4 sources) Start: 03-07-20 End: 03-23-20 Balsam [place] [employer] Discontinued 1 APPLIC TOPICAL Three times daily 60 30 March 07, 2022 12:00am March 23, 2023 1:58pm Balsam [place] [employer] Ointment (5 sources) Start: 03-07-20 End: 03-23-20 Balsam [place] [employer] Ointment Discontinued 1 APPLIC TOPICAL Three times daily 60 30 March 07, 2022 12:00am March 23, 2023 1:58pm Start: 03-07-2022 End: 03-23-2023 Balsam [place] [employer] Ointm ent Discontinued 1 APPLIC TOPICAL Three times daily 60 30 March 06, 2022 11:00pm March 23, 2023 12:58pm benzocaine 6 mg / menthol 10 mg oral lozenge (2 sources) Standardized Chemical Allergen Start: 12-06-2022 benzocaine-menthol (CHLORASEPTIC) 6-10 mg lozenges Use 1 Lozenge as instructed every 2 hours as needed. 18 Each 0 12/06/2022 Active Comment on above: Use 1 Lozenge as ins tructed every 2 hours as needed. benzonatate 100 mg oral capsule (20 sources) Non-narcotic Antitussive Start: 12-06-2022 End: 01-30-2025 benzonatate Discontinued 100 MG PO January 30, 2025 12:00am January 30, 2025 2:09pm Comment on above: Take 1 capsule by [facility] three times daily as needed for cough. betamethasone 0.5 mg/ml / clotrimazole 10 mg/ml [...] a day Not-Taking take 2 puff(s) by [facility] twice daily Symbicort 160-4.5 MCG/ACT Inhalation Aerosol [...] Surgical Prophylaxis Administer over 5 mins. Post-op cefdinir 300 mg oral capsule (12 sources) Cephalosporin Antibacterial Start: 5 End: 5 take 1 capsule by mouth twice daily Cefdinir 300 mg capsule Discontinued 300 MG PO Twice daily 07 08May 23, 2025 12:00am June 28, 2025 2:23pm Start: 02-23-2024 End: 03-04-2024 take 1 capsule by mouth every twelve hours cefdinir 300 mg Cap 300 mg = 1 cap(s), Oral, q12hr, X 10 day(s), # 20 cap(s), Refills(s) 0, Pharmacy: [facility], 175, cm, 03/20/23 9:07:00 EDT, Height/Length Dosing, 92, kg, 03/20/23 9:07:00 EDT, Weight Dosing Start Date: 02/23/24 Stop Date: 03/04/24 Status: Ordered Start: 06-11-2023 End: 06-21-2023 take 1 capsule by mouth every twelve hours cefdinir 300 mg Cap 300 mg = 1 cap(s), Oral, q12hr, X 10 day(s), # 20 cap(s), Refills(s) 0, Pharmacy: [facility], 175, cm, 03/20/23 9:07:00 EDT, Height/Length Dosing, 92, kg, 03/20/23 9:07:00 EDT, Weight Dosing Start Date: 06/11/23 Stop Date: 06/21/23 Status: Ordered take 1 capsule by [facility] every twelve hours Cefdinir 300 MG 1 capsule Orally bid Active cosyntropin (CORTROSYN) injection 250 mcg (1 source) Start: 02-09-2022 End: 02-09-2022 cosyntropin (CORTROSYN) injection 250 mcg cyclobenzaprine hydrochloride 5 mg oral tablet (11 sources) Muscle Relaxant Start: 03-07-2022 End: 03-23-2023 take 1 tablet [...] End: 04-19-2023 take 1 capsule by mouth at bedtime Docusate Sodium 100 mg Capsule Discontinued 100 MG PO Bedtime March 23, 2023 12:00am April 19, 2023 8:43am Start: 05-04-2020 End: 12-06-2022 Docusate Sodium Discontinued 100 MG PO As Directed August 29, 2021 1:00am March 07, 2022 9:03am Comment on above: Take 1 capsule by [facility] twice daily. docusate sodium 50 mg / sennosides, prison 8.6 mg oral tablet (1 source) Start: 02-08-20 take 1 tablet by mouth twice daily 1 tablet, Oral, 2 TIMES DAILY, First dose on Thu02/07/22 at 2100, Until Discontinued, Post-op 500 ml DOPamine hydrochloride 1.6 mg/ml injection (1 source) Catecholamine Start: 02-09-20 End: 02-14-20 DOPamine (INTROPIN) 400 mg in dextrose 5 % 250 mL infusion DULoxetine 60 mg delayed release oral capsule (20 sources) Serotonin and Norepinephrine Reuptake Inhibitor Start: 04-28-20 End: 08-10-20 take 1 capsule by mouth once daily Duloxetine (Cymbalta) 60 mg capsule,delayed release(DR/EC) Discontinued 60 MG PO Daily January 06, 2024 12:00am August 10, 2024 2:21pm take 1 capsule by mouth twice da giuliano Cymbalta 20 mg capsule,delayed release take 1 capsule (20 mg) by oral route 2 times per day unsure of dose Comment on above: Take 1 capsule by [facility] once daily. ezetimibe 10 mg oral tablet (20 sources) Dietary Cholesterol Absorption Inhibitor Start: 7 End: take 1 tablet by mouth once daily Ezetimibe (Zetia) 10 mg tablet Discontinued 10 MG PO Daily January 06, 2024 12:00am August 10, 2024 2:21pm Comment on above: Take 10 mg by mouth once daily. 2 ml fentaNYL 0.05 mg/ml injection (2 sources) Opioid Agonist Start: End: fentaNYL (SUBLIMAZE) injection 50 mcg Start: 02-07-2022 [...] above: Take 1 tablet by brendan every 12 hours as needed (cough, congestion). [...] 2023 8:43am Start: 01-16-2023 End: 01-30-2025 hydromorphone Discontinued 2 MG PO January 30, 2025 12:00am January 30, 2025 2:09pm Start: 12-06-2022 End: 12-13-2022 take 1 tablet [...] days. hydrOXYzine hydrochloride 50 mg oral tablet (12 sources) Antihistamine Start: 02-18-20 End: 08-29-20 take [...] Toradol per 15 mg Jan, 2ml Lanolin Ktaajiv-Yk-N.Pet-Cer es (Minerin Creme) Cream (9 sources) Start: 04-19-2023 End: 01-06-2024 Lanolin Gpayxop-Av-S.Pet-Cer es (Minerin Creme) Cream Discontinued 1 APPLIC TOPICAL Twice daily 11 17April 18, 2023 11:00pm January 06, 2024 3:09pm Start: 04-19-2023 End: 01-06-2024 Lanolin Xonlooy-Hn-W.Pet-Cer es (Minerin Creme) Cream Discontinued 1 APPLIC TOPICAL Twice daily 11 17April 19, 2023 12:00am January 06, 2024 4:09pm linaclotide 0.145 mg oral capsule (20 sources) [...] 48 hrs. melatonin 5 mg oral tablet (9 sources) Start: 3 End: 4 Melatonin 5 mg Tablet Discontinued 5 MG PO 2300 0 April 19, 2023 12:00am January 06, 2024 4:09pm metFORMIN hydrochloride 500 mg oral tablet (20 sources) Biguanide Start: 4 End: 5 take 1 tablet by mouth once daily Metformin 500 mg tablet Discontinued 500 MG PO Daily June 21, 2024 12:00am July 17, 2025 11:06am Start: 02-07-2022 End: 03-23-2023 take 1 tablet by mouth twice daily at mealtime Metformin 500 mg Tablet Discontinued 500 MG PO Twice daily with meals March 07, 2022 12:00am March 23, 2023 [...] by brendan th twice daily with meals. methylPREDNISolone 4 mg oral tablet (11 sources) Corticosteroid Start: 2023 End: 2024 take 1 tablet by mouth once Methylprednisolone (Medrol (Josué)) 4 mg tablets,dose pack Discontinued 0 PO per package directions October 18, 2024 1:00am December 29, 2024 1:41pm PO PER PKG DIR Start: 09-02-2023 methylPREDNISo lone 4 MG as directed Orally as directed Aug, Active Mineral Oil-Isopropyl Myrist at (Minerin) lotion (9 sources) Start: 01-06-2024 End: 02-11-2024 Mineral Oil-Isopropyl [...] mirabegron 50 mg extended release oral tablet (9 sources) beta3-Adrenergic Agonist Start: 02-17-2019 End: 10-14-2019 take 1 tablet by mouth once daily Mirabegron (Myrbetriq) 50 mg Tablet Extended Release 24 Hr Discontinued 50 MG PO Daily February 17, 2019 12:00am October 14, 2019 11:26am Miscellaneous Medical Supply misc (5 sources) Start: 01-06-2024 End: 04-05-2025 Miscellaneous Medical Supply misc Discontinued 0 .Route January 06, 2024 12:00am April 05, 2025 1:54pm As directed Start: 01-06-2024 Miscellaneous Medical Supply misc Active 0 .Route January 06, 2024 12:00am As directed Start: 01-06-2024 Miscellaneous Medical Supply [facility] Active 0 .Route January 05, 2024 11:00pm As directed miSOPROStol 0.2 mg oral tablet (3 sources) Prostaglandin E1 Analog End: 11-20-2022 take 1 tablet by mouth four times daily miSOPROStol (CYTOTEC) 200 mcg tablet Take 200 mcg by mouth four times daily. Only Takes when needed for stomach upset 0 11/20/2022 Discontinued Comment on above: Take 200 mcg by mout h four times daily. Only Takes when needed for stomach upset montelukast 10 mg oral tablet (20 sources) Leukotriene Receptor Antagonist Start: 12-06-2022 End: 01-13-2025 take 1 tablet by mouth once daily Montelukast (Singulair) 10 mg tablet Discontinued 10 MG PO Daily January 06, 2024 12:00am July 14, 2024 4:07pm Comment on above: Take 1 tablet by brendan th once daily. Multi Vitamin TABS (5 sources) Multi Vitamin TA BS TAKE 1 TABLET DAILY. Quantity: 0 Refills: 0 Ordered: 16-Aug-2021 DO Active MULTIVIT-MIN/FA/LY COPEN/LUTEIN (CENTRUM SILVER ULTRA MEN'S ORAL) (3 sources) [...] route daily unsure of dose Multivitamin Tablet (5 sources) Start: 02-17-2019 End: 03-23-2023 take 1 [...] Start: 08-15-2013 take 1 capsule by mo [facility] once daily Multivitamins DX: 285.9 1 [...] 2023 12:00am January 06, 2024 4:09pm Nystatin 139725 UNIT/GM 1 application Externally Twice a day Active [place]-3 Fatty Acids (4 sources) Start: 02-18-2022 End: 03-23-2023 take 1000 mg by mouth once daily in the morning [place]-3 Fatty Acids Discontinued 1000 MG PO Every morning February 18, 2022 12:00am March 23, 2023 1:58pm [place]-3 Fatty Acids Capsule (5 sources) Start: 02-18-2022 End: 03-23-2023 take 1 capsule by mouth once daily in the morning [place]-3 Fatty Acids Capsule Discontinued 1000 MG PO Every morning February 18, 2022 12:00am March 23, 2023 1:58pm Start: 02-18-2022 End: 03-23-2023 take 1 capsule by mouth once daily in the morning [place]-3 Fatty Acids Capsule Discontinued 1000 MG PO [...] tablet (3 sources) Cholinergic Muscarinic Antagonist End: take 15 mg by mouth once daily OXYBUTYNIN CHLORIDE ORAL Take 15 mg by mouth once daily. 0 11/20/2022 Discontinued Comment on above: Take 15 mg by mouth once daily. pimavanserin 34 mg oral capsule (1 source) Atypical Antipsychotic Start: End: take 1 capsule by mouth once daily at bedtime pimavanserin 34 mg Take 1 capsule by mouth daily at bedtime. 30 capsule 11 07/03/2020 08/23/2020 Discontinued (Other) Comment on above: Take 1 capsule by mo [facility] daily at bedtime. piperacillin 4000 mg / tazobactam 500 mg injection (1 source) Penicillin-class Antibacterial, beta Lactamase Inhibitor Start: 025 End: take 4.5 g intravenously every eight hours Piperacillin-Tazoba ctam 4.5 gram recon soln Discontinued 4.5 GM IV Every 8 hours June 28, 2025 12:00am July 17, 2025 11:06am pregabalin 300 mg oral capsule (20 sources) Start: 022 Lyrica 600 mg 11/19/2021 Take 1 twice daily Start: 02-17-2019 End: 05-11-2025 take 1 capsule by mouth twice daily Pregabalin 300 mg capsule Discontinued 300 MG PO Twice daily January 06, 2024 12:00am March 09, 2024 7:56am Comment on above: Take 300 mg by mouth twice daily. promethazine hydrochloride 25 mg oral tablet (3 sources) Phenothiazine End: 11-20-19 take 1 tablet by mouth every six hours as needed promethazine (PHENERGAN) 25 mg tablet 25 mg every 6 hours as needed for Nausea/Vomiting. 0 11/20/2022 Discontinued Comment on above: 25 mg every 6 hours as needed for Nausea/Vomiting. QUEtiapine 25 mg oral tablet (13 sources) Atypical Antipsychotic Start: 01-11-20 End: 03-23-20 take 1 tablet by mouth once daily at bedtime Quetiapine (Seroquel) 25 mg Tablet Discontinued 25 MG PO Daily at bedtime February 18, 2022 12:00am March 23, 2023 1:58pm Comment on above: Take 1 tablet by brendan th every evening. raNITIdine 150 mg oral tablet (9 sources) Histamine-2 Receptor Antagonist Start: 02-18-20 End: 08-29-20 take 1 tablet by mouth once daily Ranitidine Hcl (Zantac) 150 mg Tablet Discontinued 150 MG PO Daily February 17, 2019 12:00am August 29, 2021 10:35am rimegepant 75 mg disintegrating oral tablet (3 sources) Start: 12-30-19 End: 01-31-20 take 1 tablet by mouth once as needed for headache Rimegepant (Nurtec Odt) 75 mg tablet,disintegrati ng Discontinued 75 MG PO Once as needed for migraine headache December 29, 2024 12:00am January 30, 2025 2:10pm rOPINIRole 1 mg oral tablet (20 sources) Nonergot Dopamine Agonist Start: 01-06-20 End: 04-25-20 24 take 1 tablet by mouth once daily [...] 2024 4:10pm take 1 tablet by brendan once daily at bedtime rOPINIRole HCl 1 MG 1 tablets 1 to 3 hours before bedtime Orally Once a day for 90 days Active sennosides, prison 8.6 mg oral tablet (2 sources) Start: 12-06-2022 take 1 tablet by mouth twice daily senna (SENOKOT) 8.6 mg tab Take 1 tablet by mouth twice daily. 0 12/06/2022 Active Comment on above: Take 1 tablet by brendan twice daily. sildenafil 100 mg oral tablet [...] therapy. Post-op sucralfate 1000 mg oral tablet (12 sources) Aluminum Complex Start: 02-17-2019 End: 08-29-2021 [...] tablet by brendan th four times daily. sulfamethoxazole 400 mg / trimethoprim 80 mg oral tablet (20 sources) Dihydrofolate Reductase Inhibitor Antibacterial, Sulfonamide Antimicrobial Start: 01-31-20 End: 06-28-20 take 1 tablet by mouth three times weekly Sulfamethoxazole-Tr imethoprim 400-80 mg tablet Discontinued 1 TAB PO 3 Times a week January 30, 2025 12:00am April 05, 2025 1:53pm Start: 12-27-2024 End: 06-25-2025 Bactrim 400 mg-80 [...] 12:00am January 30, 2025 9:51am Start: 06-21-2024 End: 01-30-2025 take 1 tablet [...] PO Twice daily June 21, 2024 12:00am Syringe (Disposable) 3 ML (17 sources) Start: 02-23-2023 Syringe (Dispo sable) 3 ML as directed as directed as directed February, Not-Taking/PRN Start: 02-23-2023 Syringe (Dispo sable) 3 ML as directed as directed as directed February, Active Syringe (Disposable) 3 mL syringe (5 sources) Start: 01-06-2024 End: 04-05-2025 Syringe (Disposable) 3 mL syringe Discontinued 0 .Route January 06, 2024 12:00am April 05, 2025 1:54pm As directed Start: 01-06-2024 Syringe (Dispo sable) 3 mL syringe Active 0 .Route January 06, 2024 12:00am As directed Start: 01-06-2024 Syringe (Dispo sable) 3 mL syringe Active 0 .Route January 05, 2024 11:00pm As directed tamsulosin hydrochloride 0.4 mg oral capsule (20 [...] subq twice a week; Note: Source Status: [id number] vial; Refills: 0; Qty: 10 ml; Provider: [...] times weekly tiZANidine 4 mg oral tablet (12 sources) Central alpha-2 Adrenergic Agonist Start: 03-17-2018 End: 11-20-2022 Tizanidine 4 mg tablet Discontinued 4 MG PO As Directed as needed for Spasms February 17, 2019 12:00am August 29, 2021 10:37am Comment on above: Take 1 tablet by brendan every 8 hours as needed. TAKES 2 TAB AT HS tobramycin 3 mg/ml ophthalmic solution (6 sources) Aminoglycoside Antibacterial Start: 05-09-2025 End: 06-28-2025 take 0.3 drop(s) into the eye(s) four times daily Tobramycin 0.3 % drops Discontinued 2 DROPS EYE-BOTH Four times daily May 09, 2025 12:00am June 28, 2025 2:33pm Start: 08-09-2024 End: 06-28-2025 take 0.3 drop(s) into the eye(s) every four hours Tobramycin 0.3 % drops Discontinued 2 DROPS EYE-BOTH Every 4 hours 02 22August 09, 2024 12:00am June 28, 2025 2:33pm Start: 08-09-2024 take 0.3 drop(s) int o the eye(s) every four hours Tobramycin 0.3 % drops Active 2 DROPS EYE-BOTH Every 4 hours 5 August 09, 2024 12:00am topiramate 100 mg oral tablet (20 sources) Start: 02-07-2022 take 1 tablet by mouth once daily 100 mg, Oral, DAILY, First dose on Thu02/07/22 at 1645, Until Discontinued It is not recommended to crush, break, or chew immediate release tablets due to bitter taste. Start: 11-19-2021 take 1 capsule by mo [facility] once daily topiramate oral capsule,ashia,ER 24hr 100 mg 11/19/2021 take 1 capsule (100 mg) by oral route once daily Start: 02-07-2019 End: 11-20-2022 take 1 tablet by mouth twice daily Topiramate 200 mg tablet Discontinued 200 MG PO Twice daily February 17, 2019 12:00am August 29, 2021 10:38am Start: 07-07-2018 End: 06-14-2025 take 1 tablet by mouth twice daily Topiramate 100 mg tablet Discontinued 100 MG PO Twice daily January 06, 2024 12:00am June 07, 2024 5:10pm FreeTextSi Tablet Orally BID; Note: Source Status: Taking; Refills: 3; Qty: 180 Tablet; Provider: Leyda Hinkle Comment on above: Take 1 tablet by brendan twice daily. urea 400 mg/ml topical lotion (3 sources) End: 3 urea (CARMOL) 40 % lotn Apply to affected area twice daily. 0 11/20/2022 Discontinued Comment on above: Apply to affected ar ea twice daily. valACYclovir 500 mg oral tablet (9 sources) Herpesvirus Nucleoside Analog DNA Polymerase Inhibitor, Herpes Simplex Virus Nucleoside Analog DNA Polymerase Inhibitor, Herpes Zoster Virus Nucleoside Analog DNA Polymerase Inhibitor Start: 2 End: 2 take 1 tablet by mouth once daily as needed Valacyclovir (Valtrex) 500 mg Tablet Discontinued 500 MG PO Daily as needed for Abdominal Discomfort February 18, 2022 12:00am February 18, 2022 3:57pm vancomycin (VANCOCIN) 1,500 mg in dextrose 5 % 500 mL IVPB (1 source) Start: 2 End: 2 1,500 mg, IntraVENous, EVERY 12 HOURS, 1 dose, First dose on 02/08/22 at 0015 Antimicrobial Indications: Surgical Prophylaxis Post-op Problems Active Problems Problem Classification Problem Date Documented Da te Episodic/Chronic Administrative/social admission (20 sources) Other reduced mobility; Translations: [COVID-19 long hauler manifesting chronic decreased mobility and endurance] Onset: 5 03-24-2023 Episodic Allergic reactions (2 sources) Contact dermatitis and other eczema due to other specified agents; Translations: [Irritant contact dermatitis due to fecal incontinence] Onset: 3 12-05-2022 Episodic Anxiety disorders (20 sources) Other specified anxiety disorders; Translations: [Anxiety] 01-15-2023 Chronic Aortic; peripheral; and visceral artery aneurysms (1 source) Dissection of abdominal aorta; Translations: [Dissection of abdominal aorta] 01-28-2024 Chronic Asthma (20 sources) Unspecified asthma, uncomplicated; Translations: [Asthma] Onset: 8 12-07-2017 Chronic Bacterial infection; unspecified site (20 sources) Methicillin resistant Staphylococcus aureus infection, unspecified site; Translations: [Methicillin resistant Staphylococcus aureus] Onset: 2 Resolved: 2 Episodic Calculus of urinary tract (20 sources) Calculus of kidney; Translations: [Personal history of urinary calculi] Onset: 2 Resolved: 2 Episodic Cancer of esophagus (9 sources) Malignant tumor of esophagus; Translations: [Malignant neoplasm of esophagus, unspecified] 02-19-2022 Chronic Chronic obstructive pulmonary disease and bronchiectasis (20 sources) Emphysema, unspecified; Translations: [Emphysematous bronchitis] Onset: 7 05-03-2020 Chronic Chronic obstructive pulmonary disease and bronchiectasis (2 sources) Bronchitis, not specified as acute or chronic Episodic Chronic ulcer of skin (20 sources) Ulcer; Translations: [Non-pressure chronic ulcer of skin of other sites with unspecified severity] Onset: 1 Resolved: 1 Chronic Complication of device; implant or graft (1 source) Infection and inflammatory reaction due to indwelling urethral catheter, sequela Episodic Conduction disorders (6 sources) Encounter for adjustment and management of other part of cardiac pacemaker; Translations: [Presence of cardiac pacemaker] Onset: 5 Chronic Coronary atherosclerosis and other heart disease (20 sources) Coronary atherosclerosis Onset: 2 01-15-2023 Chronic Deficiency and other anemia (3 sources) Anemia, unspecified; Translations: [ANEMIA UNSPECIFIED] Onset: 3 Episodic Deficiency and other anemia (20 sources) Anemia; Translations: [Anemia, unspecified] 01-15-2023 Episodic Deficiency and other anemia (20 sources) Iron deficiency anemia; Translations: [Iron deficiency anemia, unspecified] 01-15-2023 Episodic Deficiency and other anemia (3 sources) Iron deficiency anemia, unspecified; Translations: [Iron deficiency anemia, unspecified] Onset: 5 Episodic Diabetes mellitus with complications (20 sources) Disorder of kidney due to diabetes mellitus; Translations: [Type 2 diabetes mellitus with diabetic nephropathy] Onset: 1 01-15-2023 Chronic Diabetes mellitus without complication (20 sources) Diabetes mellitus; Translations: [Diabetes mellitus without mention of complication, type II or unspecified type, not stated as uncontrolled] Onset: 7 Resolved: 3 05-03-2020 Chronic Diabetes mellitus without complication (12 sources) Hyperglycemia, unspecified; Translations: [Other abnormal glucose] Onset: 5 Episodic Disorders of lipid metabolism (20 sources) Hyperlipidemia; Translations: [Other and unspecified hyperlipidemia] Onset: 8 Resolved: 3 05-03-2020 Chronic E Codes: Fall (20 sources) Fall; Translations: [Unspecified fall, initial encounter] Onset: 3 12-05-2022 Episodic Esophageal disorders (20 sources) Gastro-esophageal reflux disease without esophagitis; 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] Onset: 1 Resolved: 3 Chronic Essential hypertension (20 sources) Essential (primary) hypertension; Translations: [Essential hypertension] Onset: 8 05-03-2020 Chronic Gangrene (20 sources) Critical lower limb ischemia ; Translations: [Atherosclerosis of [place] arteries of extremities with gangrene, bilateral legs] Onset: 4 01-28-2024 Chronic Gastroduodenal ulcer (except hemorrhage) (2 sources) Gastrojejunal ulcer, unspecified as acute or chronic, without hemorrhage or perforation; Translations: [Gastrojejunal ulcer, unspecified as acute or chronic, without hemorrhage or perforation] Onset: 5 Chronic Gastrointestinal hemorrhage (2 sources) Chronic or unspecified gastric ulcer with hemorrhage; Translations: [Chronic or unspecified gastric ulcer with hemorrhage] Onset: 5 Chronic Gastrointestinal hemorrhage (5 sources) Gastrointestinal hemorrhage; Translations: [Gastrointestinal hemorrhage, unspecified] Onset: 5 06-29-2025 Episodic Genitourinary symptoms and ill-defined conditions (20 sources) Urinary incontinence; Translations: [Unspecified urinary incontinence] Onset: 2 Chronic Genitourinary symptoms and ill-defined conditions (20 sources) Urgent desire to urinate; Translations: [Urgency of urination] Onset: 6 07-31-2006 Episodic Headache; including migraine (10 sources) Migraine without aura, not refractory ; Translations: [Migraine without aura, not intractable, without status migrainosus] 02-13-2024 Chronic Headache; including migraine (17 sources) Frequent headache; Translations: [Frequent headaches] 03-24-2023 Episodic Hyperplasia of prostate (20 sources) Benign prostatic hypertrophy with outflow obstruction; Translations: [Benign prostatic hyperplasia with lower urinary tract symptoms] Onset: 0 Resolved: 3 08-12-2010 Chronic Immunizations and screening for infectious disease (16 sources) Needs influenza immunization; Translations: [Encounter for immunization] Episodic Intestinal obstruction without hernia (9 sources) Intestinal obstruction co-occurrent and due to decreased peristalsis; Translations: [Ileus, unspecified] 02-19-2022 Episodic Intracranial injury (9 sources) Concussion with loss of consciousness; Translations: [Concussion with loss of consciousness of unspecified duration, initial encounter] 05-28-2020 Episodic Miscellaneous mental health disorders (6 sources) Psychosexual dysfunction; Translations: [Unspecified sexual dysfunction not due to a substance or known physiological condition] Onset: 6 07-31-2006 Chronic Mood disorders (20 sources) Major depressive disorder, single episode, unspecified; Translations: [Depression] Onset: 3 01-16-2023 Chronic Nausea and vomiting (14 sources) Nausea; Translations: [Nausea] Onset: 2 Resolved: 2 Episodic Neoplasms of unspecified nature or uncertain behavior (20 sources) Monoclonal gammopathy of uncertain significance; Translations: [Monoclonal gammopathy] Onset: 8 09-15-2018 Chronic Nonspecific chest pain (5 sources) Chest pain; Translations: [Chest pain, unspecified] Episodic Nutritional deficiencies (5 sources) Deficiency of macronutrients; Translations: [Unspecified severe protein-calorie malnutrition] Onset: 3 12-05-2022 Chronic Open wounds of extremities (9 sources) Amputated toe; Translations: [Complete traumatic amputation of one unspecified lesser toe, initial encounter] 01-06-2024 Chronic Osteoarthritis (20 sources) Unilateral primary osteoarthritis, right knee; Translations: [Unspecified osteoarthritis, unspecified site] Onset: 7 Resolved: 2 07-01-2017 Chronic Other acquired deformities (2 sources) Other kyphoscoliosis and scoliosis Chronic Other aftercare (2 sources) Patient encounter status; Translations: [Encounter for palliative care] Onset: 3 12-06-2022 Episodic Other aftercare (1 source) Other emt intermediate (current) drug therapy; Translations: [OTH JAIL CURRENT DRUG THERAPY] Onset: 3 Episodic Other aftercare (2 sources) Encounter for other specified surgical aftercare; Translations: [Encounter for other specified surgical aftercare] Onset: 5 Episodic Other bone disease and musculoskeletal deformities (20 sources) Acquired absence of other left toe(s); Translations: [Toe amputation status, left] Episodic Other circulatory disease (2 sources) Idiopathic hypotension; Translations: [Idiopathic hypotension] Onset: 2 Episodic Other circulatory disease (6 sources) Hypotension, unspecified; Translations: [Hypotension I95.9] Onset: 1 Resolved: 2 Episodic Other circulatory disease (7 sources) Orthostatic hypotension; Translations: [Orthostatic hypotension] Onset: 3 Episodic Other circulatory disease (9 sources) Low blood pressure; Translations: [Hypotension, unspecified] 02-19-2022 Episodic Other circulatory disease (3 sources) Feeling of lump in throat; Translations: [Globus sensation] 03-14-2025 Episodic Other circulatory disease (2 sources) Disorder of autonomic nervous system; Translations: [Orthostatic hypotension] 03-14-2025 Episodic Other circulatory disease (1 source) Critical lower limb ischemia 03-16-2025 Episodic Other congenital anomalies (20 sources) Microstomia; Translations: [Microstomia] Onset: 0 08-09-2010 Chronic Other connective tissue disease (1 source) Presence of right artificial knee joint; Translations: [Presence of right artificial knee joint] Onset: 7 Chronic Other connective tissue disease (20 sources) History of repair of hip joint; Translations: [Presence of unspecified artificial hip joint] Chronic Other connective tissue disease (20 sources) History of left shoulder arthroplasty; Translations: [Presence of left artificial shoulder joint] Onset: 8 02-08-2018 Chronic Other connective tissue disease (2 sources) Pain in right leg Onset: 2 Episodic Other connective tissue disease (2 sources) Pain in left leg Onset: 2 Episodic Other connective tissue disease (1 source) Pain in right arm Onset: 2 Episodic Other connective tissue disease (1 source) Pain in left arm Onset: 2 Episodic Other connective tissue disease (20 sources) Muscle atrophy; Translations: [Muscle wasting and atrophy, not elsewhere classified, multiple sites] 01-06-2024 Episodic Other diseases of bladder and urethra (20 sources) Neurogenic bladder; Translations: [Neuromuscular dysfunction of bladder, unspecified] 02-19-2022 Chronic Other diseases of bladder and urethra (5 sources) Neuromuscular dysfunction of bladder, unspecified; Translations: [Neurogenic bladder NOS] Onset: 5 Chronic Other diseases of bladder and urethra (1 source) Disorder of bladder; Translations: [Other specified disorders of bladder] Onset: 4 Chronic Other diseases of kidney and ureters (2 sources) Urinary tract obstruction; Translations: [Other obstructive and reflux uropathy] Onset: 3 Episodic Other endocrine disorders (20 sources) Testicular hypofunction Onset: 2 01-15-2023 Chronic Other endocrine disorders (20 sources) Hypotestosteronism; Translations: [Endocrine disorder, unspecified] 01-06-2024 Episodic Other endocrine disorders (3 sources) Endocrine disorder, unspecified; Translations: [Unspecified endocrine disorder] Episodic Other gastrointestinal disorders (20 sources) Neurogenic bowel; Translations: [Neurogenic bowel, not elsewhere classified] 02-19-2022 Chronic Other gastrointestinal disorders (5 sources) Neurogenic bowel, not elsewhere classified; Translations: [Neurogenic bowel] Onset: 5 Chronic Other gastrointestinal disorders (20 sources) Constipation; Translations: [Constipation, unspecified] 01-06-2024 Episodic Other gastrointestinal disorders (5 sources) Constipation, unspecified; Translations: [Constipation, unspecified] Onset: 1 Resolved: 2 Episodic Other gastrointestinal disorders (20 sources) Complete fecal incontinence; Translations: [Full incontinence of feces] Episodic Other gastrointestinal disorders (6 sources) Full incontinence of feces; Translations: [Full incontinence of feces] Onset: 2 Episodic Other gastrointestinal disorders (6 sources) Diarrhea, unspecified; Translations: [Diarrhea] Episodic Other gastrointestinal disorders (7 sources) Other fecal abnormalities; Translations: [Nonspecific abnormal findings in stool contents] Episodic Other gastrointestinal disorders (9 sources) Diarrhea; Translations: [Diarrhea, unspecified] 01-22-2024 Episodic Other gastrointestinal disorders (9 sources) Incontinence of feces; Translations: [Full incontinence of feces] 01-22-2024 Episodic Other gastrointestinal disorders (9 sources) Mucus in stool; Translations: [Other fecal abnormalities] 01-22-2024 Episodic Other hereditary and degenerative nervous system conditions (6 sources) Essential tremor; Translations: [Essential tremor] Onset: 8 10-27-2017 Chronic Other hereditary and degenerative nervous [...] degeneration of the autonomic nervous system] Onset: 1 02-13-2021 Chronic Other hereditary and degenerative nervous system conditions (1 source) 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; Translations: [Multi-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] 07-14-2024 Chronic Other hereditary and degenerative nervous system conditions (3 sources) Multi-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; Translations: [Multi-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] Onset: 4 Chronic Other hereditary and degenerative nervous system conditions (1 source) 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; Translations: [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] Onset: 5 Chronic Other injuries and conditions due to external causes (5 sources) Closed injury of head; Translations: [Unspecified injury of head, initial encounter] 10-05-2024 Episodic Other lower respiratory disease (5 sources) Dyspnea; Translations: [Other respiratory abnormalities] Episodic Other lower respiratory disease (1 source) Shortness of breath; Translations: [SOB (shortness of breath)] Onset: 3 Episodic Other male genital disorders (20 sources) Secondary erectile dysfunction; Translations: [Male erectile dysfunction, unspecified] Onset: 7 10-08-2007 Chronic Other male genital disorders (20 sources) Impotence of organic origin; Translations: [Male erectile dysfunction, unspecified] Chronic Other male genital disorders (9 sources) Male erectile dysfunction, unspecified; Translations: [Erectile dysfunction] 01-06-2024 Chronic Other nervous system disorders (20 sources) Chronic pain syndrome; Translations: [Chronic pain syndrome] Onset: 7 04-15-2017 Chronic Other nervous system disorders (20 sources) Complex regional pain syndrome type I; Translations: [Complex regional pain syndrome I, unspecified] Onset: 8 03-17-2018 Chronic Other nervous system disorders (20 sources) Neuropathy; Translations: [Polyneuropathy, unspecified] 01-06-2024 Chronic Other nervous system disorders (6 sources) Polyneuropathy, unspecified Onset: 2 Resolved: 2 Chronic Other nervous system disorders (20 sources) Disorder of autonomic nervous system; Translations: [Disorder of the autonomic nervous system, unspecified] 03-24-2023 Chronic Other nervous system disorders (2 sources) Disorder of the autonomic nervous system, unspecified; Translations: [Disorder of the autonomic nervous system, unspecified] Onset: 5 Chronic Other nervous system disorders (5 sources) Chronic pain syndrome; Translations: [Chronic pain syndrome] Onset: 5 Chronic Other nervous system disorders (19 sources) Difficulty walking; Translations: [Difficulty in walking, not elsewhere classified] Onset: 1 02-08-2021 Chronic Other nervous system disorders (20 sources) Walking difficulty due to ankle and foot; Translations: [Difficulty in walking, not elsewhere classified] Onset: 1 02-08-2021 Chronic Other nervous system disorders (2 sources) Other chronic pain; Translations: [Other chronic pain] Onset: 5 Chronic Other nervous system disorders (4 sources) Anesthesia of skin Episodic Other nervous system disorders (3 sources) Other disturbances of skin sensation Onset: 2 Episodic Other nervous system disorders (20 sources) Abnormal involuntary movement; Translations: [Tremor, unspecified] Episodic Other nervous system disorders (20 sources) Ataxia; Translations: [Ataxia, unspecified] 01-06-2024 Episodic Other nervous system disorders (9 sources) Finding of hand region; Translations: [Tremor, unspecified] 01-06-2024 Episodic Other nervous system disorders (2 sources) Dysmetria; Translations: [Other lack of coordination] 03-14-2025 Episodic Other nervous system disorders (1 source) Other lack of coordination; Translations: [Other lack of coordination] Onset: 5 Episodic Other nutritional; endocrine; and metabolic disorders (20 sources) Obesity; Translations: [Obesity, unspecified] 01-06-2024 Chronic Other nutritional; endocrine; and metabolic disorders (20 sources) Obese class I; Translations: [Obesity, unspecified] Onset: 8 03-17-2018 Chronic Other nutritional; endocrine; and metabolic disorders (1 source) Obesity, unspecified; Translations: [Obesity, unspecified] Onset: 5 Chronic Other nutritional; endocrine; and metabolic disorders (2 sources) Other obesity due to excess calories; Translations: [Other obesity due to excess calories] Onset: 5 Chronic Other nutritional; endocrine; and metabolic disorders (1 source) Adult failure to thrive; Translations: [Failure to thrive in adult] Onset: 3 Episodic Other nutritional; endocrine; and metabolic disorders (2 sources) Abnormal weight loss; Translations: [Abnormal weight loss] Onset: 5 Episodic Other skin disorders (2 sources) Skin eschar; Translations: [Changes in skin texture] Onset: 3 12-05-2022 Episodic Otitis media and related conditions (1 source) Unspecified Eustachian tube disorder, bilateral Episodic Parkinson`s disease (20 sources) Symptomatic parkinsonism; Translations: [Paralysis agitans] Onset: 9 Resolved: 2 11-08-2019 Chronic Parkinson`s disease (1 source) Parkinson`s disease; Translations: [Parkinson's disease with dyskinesia, without mention of fluctuations] Onset: 5 Pleurisy; pneumothorax; pulmonary collapse (20 sources) Atelectasis; Translations: [Atelectasis] Episodic Residual codes; unclassified (4 sources) Sleep apnea, unspecified; Translations: [Unspecified sleep apnea] Onset: 3 12-29-2024 Chronic Residual codes; unclassified (20 sources) Postprocedural state finding; Translations: [Presence of other specified functional implants] Onset: 8 09-07-2018 Chronic Residual codes; unclassified (20 sources) Sleep apnea; Translations: [Sleep apnea, unspecified] 05-03-2020 Chronic Residual codes; unclassified (1 source) Dependence on wheelchair; Translations: [DEPENDENCE ON WHEELCHAIR] Onset: 3 Chronic Residual codes; unclassified (1 source) H/O Spinal surgery; Translations: [Presence of other specified functional implants] 06-15-2020 Chronic Residual codes; unclassified (20 sources) Insomnia; Translations: [Insomnia, unspecified] 01-06-2024 Episodic Residual codes; unclassified (2 sources) At risk of delirium; Translations: [Other specified personal risk factors, not elsewhere classified] Onset: 3 12-05-2022 Episodic Residual codes; unclassified (9 sources) History of operative procedure on lumbar spinal structure; Translations: [Other specified postprocedural states] 02-19-2022 Episodic Septicemia (except in labor) (7 sources) Sepsis; Translations: [Sepsis, unspecified organism] 06-21-2024 Episodic Shock (2 sources) Shock, unspecified; Translations: [Shock, unspecified] Onset: 5 Episodic Spondylosis; intervertebral disc disorders; other back problems (20 sources) Displacement of thoracic intervertebral disc without myelopathy; Translations: [Other intervertebral disc displacement, thoracic region] Onset: 4 Resolved: 2 03-06-2004 Chronic Spondylosis; intervertebral disc disorders; other back problems (20 sources) Low back pain; Translations: [Cervicalgia] Onset: 4 Resolved: 2 03-06-2004 Episodic Substance-related disorders (20 sources) Smoker; Translations: [Tobacco use disorder] Onset: 8 11-08-2019 Chronic Comment on above: 6 ciggs daily; Unclassified (20 sources) Parkinson's disease; Translations: [Parkinson's disease] Onset: 1 02-19-2022 Chronic Unclassified (3 sources) Unknown / UNK(Unknown) Onset: 6 Unclassified (20 sources) Disorder of rotator cuff; Translations: [Rotator cuff syndrome of shoulder and allied disorders] Onset: 5 08-07-2016 Unclassified (1 source) NO SHOW Unclassified (1 source) CONTACT W/AND (SUSP) EXPOS COVID-19; Translations: [CONTACT W/AND (SUSP) EXPOS COVID-19] Onset: 3 Unclassified (1 source) Patient encounter status 03-16-2025 Unclassified (1 source) Open wound of left great toe 03-16-2025 Unclassified (2 sources) Foreign body sensation, throat; Translations: [Foreign body sensation, throat] Onset: 5 Unclassified (1 source) 1 year follow up no testing Onset: 5 Unclassified (2 sources) Neurology- follow up as needed. Unclassified (2 sources) follow up as you are scheduled from most recent appointment Unclassified (2 sources) Follow-up with primary provider after discharge from rehab, within 1-2 weeks. Unclassified (2 sources) Rehab provider- follow up as needed. Unclassified (2 sources) [facility] surgery clinic Unclassified (1 source) [facility], follow up 07/10/25 was canceled while admitted to Rehab, call after discharge to reschedule this appointment. Urinary tract infections (20 sources) Acute cystitis; Translations: [Acute cystitis without hematuria] Onset: 0 04-27-2020 Episodic Viral infection (2 sources) Disease caused by 2019-nCoV; Translations: [COVID-19] Onset: 3 12-05-2022 Episodic Past or Other Problems Problem Classification Problem Date Documented Da te Episodic/Chronic Acquired foot deformities (20 sources) Right foot drop; Translations: [Foot drop, right foot] Onset: 08-29-2020 08-29-2020 Episodic Acute and unspecified renal failure (13 sources) Acute renal failure syndrome Onset: 08-20-2023 [...] iron deficiency anemias] Onset: 06-16-2018 10-01-2021 Episodic Malaise and fatigue (20 sources) Asthenia; Translations: [Weakness] Onset: 11-13-2022 12-05-2022 Episodic Mood disorders (20 sources) Mood disorders; Translations: [DEPRESSION UNSPECIFIED] Onset: 11-16-2023 Resolved: 08-23-2024 08-23-2024 Open wounds of extremities (20 sources) Open wound, heel; Translations: [Unspecified open wound, left foot, initial encounter] Onset: 11-08-2019 11-08-2019 Episodic Other aftercare (1 source) 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; Translations: [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 DX] Onset: 12-22-2022 Episodic [...] and mobility] Onset: 08-29-2020 08-29-2020 Episodic Other non-epithelial cancer of skin (20 sources) Malignant tumor of lip; 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] Onset: 05-11-2007 10-18-2019 Episodic Other non-traumatic joint disorders (1 source) Pain in right knee; Translations: [Pain in right knee] Onset: 07-01-2017 Episodic Other nutritional; endocrine; and metabolic disorders (1 source) Body mass index (BMI) 26.0-26.9, adult; Translations: [BODY MASS INDEX BMI 26.0-26.9 ADULT] Onset: 11-13-2022 Episodic Other screening for suspected conditions (not mental disorders or infectious disease) (20 sources) Screening status; Translations: [Encounter for screening for malignant neoplasm of respiratory organs] Onset: 08-27-2021 Resolved: 12-05-2021 Episodic Comment on above: MRSA suprapubic cath site 07/17/2023 Pneumonia (except that caused by tuberculosis or [...] Test Name Value Interpretation Reference Range Facility Orders Onlyon 07-18-2025 Orders Only Normal [facility] Glucose Poct Glucometerson 0 07-17-2025 Glucose [Mass/Vol] 95 mg/dL Normal [facility] Comment on above: Result Comment: [facility] [place] Glucose Reference Range is dependent on time and content of last meal. Glucose of more than 200 mg/dL in a nonstressed, ambulatory subject supports the diagnosis of Diabetes Mellitus. PERFORMED BY: [address] [address] PATHOLOGIST QUALITY CONTROL ENGINEERING TECHNICIAN JUAN DIEGO CAMACHO M.D. Performed By: #### G LULS #### Point of Care testing , Glucose Poct Glucometerson 0 07-16-2025 Glucose [Mass/Vol] 104 mg/dL Normal [facility] Comment on above: Result Comment: [facility] [place] Glucose Reference Range is dependent on time and content of last meal. Glucose of more than 200 mg/dL in a nonstressed, ambulatory subject supports the diagnosis of Diabetes Mellitus. PERFORMED BY: [facility] [address] [place] [address] PATHOLOGIST QUALITY CONTROL ENGINEERING TECHNICIAN JUAN DIEGO CAMACHO M.D. Performed By: #### G LULS #### Point of Care testing , Glucose [Mass/Vol] 218 mg/dL Normal [facility] Comment on above: Result Comment: [place] om Glucose Reference Range is dependent on time and content of last meal. Glucose of more than 200 mg/dL in a nonstressed, ambulatory subject supports the diagnosis of Diabetes Mellitus. PERFORMED BY: [address] [place] [id number] PATHOLOGIST QUALITY CONTROL ENGINEERING TECHNICIAN JUAN DIEGO CAMACHO M.D. Performed By: #### G LULS #### Point of Care testing , Glucose Poct Glucometerson 0 07-15-2025 Commemt1 Glu2: Cleaned Meter Normal [facility] Comment on above: Result Comment: PERF ORMED BY: [address] [place] [place] [address] PATHOLOGIST QUALITY CONTROL ENGINEERING TECHNICIAN JUAN DIEGO CAMACHO M.D. Performed By: #### G LULS #### Point of Care testing , Glucose [Mass/Vol] 136 mg/dL Normal [facility] Comment on above: Result Comment: [place] Glucose Reference Range is dependent on time and content of last meal. Glucose of more than 200 mg/dL in a nonstressed, ambulatory subject supports the diagnosis of Diabetes Mellitus. Performed By: #### G LULS #### Point of Care testing , Commemt1 Glu2: Cleaned Meter Normal [facility] Comment on above: Result Comment: PERF ORMED BY: [address] [place] [id number] PATHOLOGIST QUALITY CONTROL ENGINEERING TECHNICIAN JUAN DIEGO CAMACHO M.D. Performed By: #### G LULS #### Point of Care testing , Glucose [Mass/Vol] 72 mg/dL Normal [facility] Comment on above: Result Comment: [place] om Glucose Reference Range is dependent on time and content of last meal. Glucose of more than 200 mg/dL in a nonstressed, ambulatory subject supports the diagnosis of Diabetes Mellitus. Performed By: #### G LULS #### Point of Care testing , Basic Metabolic Panelon 09-2 Anion gap [Moles/Vol] 6.3 mmol/L Normal 6.0-15.0 [facility] Comment on above: Performed By: #### G LULS #### Point of Care testing , Calcium [Mass/Vol] 8.7 mg/dL Normal 8.6-10.3 [facility] Comment on above: Performed By: #### G LULS #### Point of Care testing , Chloride [Moles/Vol] 101 mmol/L Normal 98-107 [facility] Comment on above: Performed By: #### G LULS #### Point of Care testing , CO2 [Moles/Vol] 32.7 mmol/L High 21.0-31.0 [facility] Comment on above: Performed By: #### G LULS #### Point of Care testing , Creatinine [Mass/Vol] 0.96 mg/dL Normal 0.70-1.30 [facility] Comment on above: Performed By: #### G LULS #### Point of Care testing , Creatinine Clr Calc Pharmacy 90.36 Normal [facility] Comment on above: Result Comment: PERF ORMED BY: [address] [place] [address] PATHOLOGIST QUALITY CONTROL ENGINEERING TECHNICIAN JUAN DIEGO CAMACHO M.D. Performed By: #### G LULS #### Point of Care testing , GFR/1.73 sq M.predicted MDRD (S/P/Bld) [Vol rate/Area] mL/min/{1.73_m2} Normal [facility] Comment on above: Performed By: #### G LULS #### Point of Care testing , Glucose [Mass/Vol] 102 mg/dL High 70-100 [facility] Comment on above: Result Comment: [facility] [place] Glucose Reference Range is dependent on time and content of last meal. Glucose of more than 200 mg/dL in a nonstressed, ambulatory subject supports the diagnosis of Diabetes Mellitus. ADA recommended reference range Performed By: #### G LULS #### Point of Care testing , Potassium [Moles/Vol] 4.0 mmol/L Normal 3.5-5.1 [facility] Comment on above: Performed By: #### G LULS #### Point of Care testing , Sodium [Moles/Vol] 136 mmol/L Normal 136-145 [facility] Comment on above: Performed By: #### G LULS #### Point of Care testing , Urea nitrogen [Mass/Vol] 12 mg/dL Normal 7-25 [facility] Comment on above: Performed By: #### G LULS #### Point of Care testing , Glucose Poct Glucometerson 0 07-14-2025 Glucose [Mass/Vol] 117 mg/dL Normal [facility] Comment on above: Result Comment: [place] om Glucose Reference Range is dependent on time and content of last meal. Glucose of more than 200 mg/dL in a nonstressed, ambulatory subject supports the diagnosis of Diabetes Mellitus. PERFORMED BY: [address] [id number] PATHOLOGIST QUALITY CONTROL ENGINEERING TECHNICIAN JUAN DIEGO CAMACHO M.D. Performed By: #### G LULS #### Point of Care testing , Commemt1 Glu2: Cleaned Meter Normal [facility] Comment on above: Result Comment: PERF ORMED BY: [address] [place] [address] PATHOLOGIST QUALITY CONTROL ENGINEERING TECHNICIAN JUAN DIEGO CAMACHO M.D. Performed By: #### G LULS #### Point of Care testing , Glucose [Mass/Vol] 95 mg/dL Normal [facility] Comment on above: Result Comment: [place] om Glucose Reference Range is dependent on time and content of last meal. Glucose of more than 200 mg/dL in a nonstressed, ambulatory subject supports the diagnosis of Diabetes Mellitus. Performed By: #### G LULS #### Point of Care testing , Scan and CBCon 07-14-2025 Anisocytosis Ql (Bld) Slight Normal [facility] Comment on above: Performed By: #### G LULS #### Point of Care testing , Basophils (Bld) [#/Vol] 0.0 10*3/uL Normal 0.0-0.2 [facility] Comment on above: Performed By: #### G LULS #### Point of Care testing , Basophils/100 WBC (Bld) 0.2 % Normal . [facility] Comment on above: Performed By: #### G LULS #### Point of Care testing , Eosinophils (Bld) [#/Vol] 0.2 10*3/uL Normal 0.0-0.45 [facility] Comment on above: Performed By: #### G LULS #### Point of Care testing , Eosinophils/100 WBC (Bld) 4.4 % Normal . [facility] Comment on above: Performed By: #### G LULS #### Point of Care testing , Erythrocyte distribution width (RBC) [Ratio] 15.4 % High 12.0-14.8 [facility] Comment on above: Performed By: #### G LULS #### Point of Care testing , Hematocrit (Bld) [Volume fraction] 35.5 % Low 38.8-50.0 [facility] Comment on above: Performed By: #### G LULS #### Point of Care testing , Hemoglobin (Bld) [Mass/Vol] 11.4 g/dL Low 13.0-17.0 [facility] Comment on above: Performed By: #### G LULS #### Point of Care testing , Large Platelets Slight Normal [facility] Comment on above: Result Comment: PERF ORMED BY: [address] [place] [address] PATHOLOGIST QUALITY CONTROL ENGINEERING TECHNICIAN JUAN DIEGO CAMACHO M.D. Performed By: #### G LULS #### Point of Care testing , Lymphocytes (Bld) [#/Vol] 0.9 10*3/uL Low 1.00-4.8 [facility] Comment on above: Performed By: #### G LULS #### Point of Care testing , Lymphocytes/100 WBC (Bld) 20.5 % Normal . [facility] Comment on above: Performed By: #### G LULS #### Point of Care testing , MCH (RBC) [Entitic mass] 28.9 pg Normal 27.5-35.2 [facility] Comment on above: Performed By: #### G LULS #### Point of Care testing , MCV (RBC) [Entitic vol] 90.0 fL Normal 83.5-101 [facility] Comment on above: Performed By: #### G LULS #### Point of Care testing , Mean Corpuscular HGB Conc 32.1 g/dL Low 32.5-35.6 [facility] Comment on above: Performed By: #### G LULS #### Point of Care testing , Monocytes (Bld) [#/Vol] 0.4 10*3/uL Normal 0.0-0.8 [facility] Comment on above: Performed By: #### G LULS #### Point of Care testing , Monocytes/100 WBC (Bld) 9.4 % Normal . [facility] Comment on above: Performed By: #### G LULS #### Point of Care testing , Neutrophils (Bld) [#/Vol] 2.8 10*3/uL Normal 1.8-7.7 [facility] Comment on above: Performed By: #### G LULS #### Point of Care testing , Neutrophils/100 WBC (Bld) 65.5 % Normal . [facility] Comment on above: Performed By: #### G LULS #### Point of Care testing , NRBC% 0.2 /100{WBC} Normal 0-0.5 [facility] Comment on above: Performed By: #### G LULS #### Point of Care testing , Platelet Estimate Decreased Normal Normal [facility] Comment on above: Performed By: #### G LULS #### Point of Care testing , Platelet mean volume (Bld) [Entitic vol] 11.4 fL High 6.6-10.[address] [facility] Comment on above: Performed By: #### G LULS #### Point of Care testing , Platelets (Bld) [#/Vol] 113 10*3/uL Low 150-450 [facility] Comment on above: Performed By: #### G LULS #### Point of Care testing , RBC (Bld) [#/Vol] 3.95 10*6/uL Normal 3.90-5.60 [facility] Comment on above: Performed By: #### G LULS #### Point of Care testing , WBC (Bld) [#/Vol] 4.2 10*3/uL Normal 4.1-10.5 [facility] Comment on above: Performed By: #### G LULS #### Point of Care testing , White Blood Count 4.2 [CFU]/mL Normal 4.1-10.5 [facility] Comment on above: Performed By: #### G LULS #### Point of Care testing , Glucose Poct Glucometerson 0 07-13-2025 Glucose [Mass/Vol] 126 mg/dL Normal [facility] Comment on above: Result Comment: [place] Glucose Reference Range is dependent on time and content of last meal. Glucose of more than 200 mg/dL in a nonstressed, ambulatory subject supports the diagnosis of Diabetes Mellitus. PERFORMED BY: [facility] [address] [facility] [place] [address] PATHOLOGIST QUALITY CONTROL ENGINEERING TECHNICIAN JUAN DIEGO CAMACHO M.D. Performed By: #### G LULS #### Point of Care testing , Glucose [Mass/Vol] 98 mg/dL Normal [facility] Comment on above: Result Comment: [place] Glucose Reference Range is dependent on time and content of last meal. Glucose of more than 200 mg/dL in a nonstressed, ambulatory subject supports the diagnosis of Diabetes Mellitus. PERFORMED BY: [facility] [address] [place] [address] PATHOLOGIST QUALITY CONTROL ENGINEERING TECHNICIAN JUAN DIEGO CAMACHO M.D. Performed By: #### G LULS #### Point of Care testing , Glucose Poct Glucometerson 0 07-12-2025 Glucose [Mass/Vol] 116 mg/dL Normal [facility] Comment on above: Result Comment: [place] Glucose Reference Range is dependent on time and content of last meal. Glucose of more than 200 mg/dL in a nonstressed, ambulatory subject supports the diagnosis of Diabetes Mellitus. PERFORMED BY: [facility] [address] [facility] [place] [address] PATHOLOGIST QUALITY CONTROL ENGINEERING TECHNICIAN JUAN DIEGO CAMAHCO M.D. Performed By: #### G LULS #### Point of Care testing , Glucose [Mass/Vol] 225 mg/dL Normal [facility] Comment on above: Result Comment: [place] Glucose Reference Range is dependent on time and content of last meal. Glucose of more than 200 mg/dL in a nonstressed, ambulatory subject supports the diagnosis of Diabetes Mellitus. PERFORMED BY: [address] [address] PATHOLOGIST QUALITY CONTROL ENGINEERING TECHNICIAN JUAN DIEGO CAMACHO M.D. Performed By: #### G LULS #### Point of Care testing , Glucose [Mass/Vol] 117 mg/dL Normal [facility] Comment on above: Result Comment: [place] Glucose Reference Range is dependent on time and content of last meal. Glucose of more than 200 mg/dL in a nonstressed, ambulatory subject supports the diagnosis of Diabetes Mellitus. PERFORMED BY: [address] [address] PATHOLOGIST QUALITY CONTROL ENGINEERING TECHNICIAN JUAN DIEGO CAMACHO M.D. Performed By: #### G LULS #### Point of Care testing , Glucose Poct Glucometerson 0 07-11-2025 Glucose [Mass/Vol] 156 mg/dL Normal [facility] Comment on above: Result Comment: [place] Glucose Reference Range is dependent on time and content of last meal. Glucose of more than 200 mg/dL in a nonstressed, ambulatory subject supports the diagnosis of Diabetes Mellitus. PERFORMED BY: [address] [place] [address] PATHOLOGIST QUALITY CONTROL ENGINEERING TECHNICIAN JUAN DIEGO CAMACHO M.D. Performed By: #### G LULS #### Point of Care testing , 36on 07-10-2025 36 Per verbal order of Dr. Luis patient should continue wound vacc for 4 weeks Nurse at [facility] notified Normal [facility] Glucose Poct Glucometerson 0 07-10-2025 Glucose [Mass/Vol] 139 mg/dL Normal [facility] Comment on above: Result Comment: [place] Glucose Reference Range is dependent on time and content of last meal. Glucose of more than 200 mg/dL in a nonstressed, ambulatory subject supports the diagnosis of Diabetes Mellitus. PERFORMED BY: [address] [address] PATHOLOGIST QUALITY CONTROL ENGINEERING TECHNICIAN JUAN DIEGO CAMACHO M.D. Performed By: #### G LULS #### Point of Care testing , Glucose [Mass/Vol] 122 mg/dL Normal [facility] Comment on above: Result Comment: [place] Glucose Reference Range is dependent on time and content of last meal. Glucose of more than 200 mg/dL in a nonstressed, ambulatory subject supports the diagnosis of Diabetes Mellitus. PERFORMED BY: [address] [address] PATHOLOGIST QUALITY CONTROL ENGINEERING TECHNICIAN JUAN DIEGO CAMACHO M.D. Performed By: #### G LULS #### Point of Care testing , Glucose Poct Glucometerson 0 07-09-2025 Glucose [Mass/Vol] 100 mg/dL Normal [facility] Comment on above: Result Comment: [place] Glucose Reference Range is dependent on time and content of last meal. Glucose of more than 200 mg/dL in a nonstressed, ambulatory subject supports the diagnosis of Diabetes Mellitus. PERFORMED BY: [address] [address] PATHOLOGIST QUALITY CONTROL ENGINEERING TECHNICIAN JUAN DIEGO CAMACHO M.D. Performed By: #### G LULS #### Point of Care testing , Glucose [Mass/Vol] 84 mg/dL Normal [facility] Comment on above: Result Comment: [place] Glucose Reference Range is dependent on time and content of last meal. Glucose of more than 200 mg/dL in a nonstressed, ambulatory subject supports the diagnosis of Diabetes Mellitus. PERFORMED BY: [address] [place] [address] PATHOLOGIST QUALITY CONTROL ENGINEERING TECHNICIAN JUAN DIEGO CAMACHO M.D. Performed By: #### G LULS #### Point of Care testing , Dipstick and Microscopicon 0 07-08-2025 Amorphous Crystal,Urine 1+ [HPF] Normal [facility] Comment on above: Order Comment: Name Collection Type:: Suprapubic Collection Performed By: #### G LULS #### Point of Care testing , Appearance (U) Cloudy Critically abnormal Clear [facility] Comment on above: Order Comment: Name Collection Type:: Suprapubic Collection Performed By: #### G LULS #### Point of Care testing , Bacteria,Urine Rare Normal None Seen [facility] Comment on above: Order Comment: Name Collection Type:: Suprapubic Collection Performed By: #### G LULS #### Point of Care testing , Bilirubin,Urine Negative Normal Negative [facility] Comment on above: Order Comment: Name Collection Type:: Suprapubic Collection Performed By: #### G LULS #### Point of Care testing , Budding Yeast,Urine 2+ [HPF] Normal None Seen [facility] Comment on above: Order Comment: Name Collection Type:: Suprapubic Collection Result Comment: PERF ORMED BY: [facility] [address] [place] [address] PATHOLOGIST QUALITY CONTROL ENGINEERING TECHNICIAN JUAN DIEGO CAMACHO M.D. Performed By: #### G LULS #### Point of Care testing , Color (U) Yellow Normal Yellow [facility] Comment on above: Order Comment: Name Collection Type:: Suprapubic Collection Performed By: #### G LULS #### Point of Care testing , Glucose Ql (U) Normal Normal Normal [facility] Comment on above: Order Comment: Name Collection Type:: Suprapubic Collection Performed By: #### G LULS #### Point of Care testing , Granular Casts, Urine 1-2 Normal None Seen [facility] Comment on above: Order Comment: Name Collection Type:: Suprapubic Collection Performed By: #### G LULS #### Point of Care testing , Hyaline Casts,Urine 0-8 Normal 0-8 [facility] Comment on above: Order Comment: Name Collection Type:: Suprapubic Collection Performed By: #### G LULS #### Point of Care testing , Ketones Ql (U) Negative Normal Negative [facility] Comment on above: Order Comment: Name Collection Type:: Suprapubic Collection Performed By: #### G LULS #### Point of Care testing , Leukocyte esterase Test strip Ql (U) 4+ Normal Negative [facility] Comment on above: Order Comment: Name Collection Type:: Suprapubic Collection Performed By: #### G LULS #### Point of Care testing , Mucus,Urine Rare Normal [facility] Comment on above: Order Comment: Name Collection Type:: Suprapubic Collection Performed By: #### G LULS #### Point of Care testing , Nitrite,Urine Negative Normal Negative [facility] Comment on above: Order Comment: Name Collection Type:: Suprapubic Collection Performed By: #### G LULS #### Point of Care testing , Occult Blood,Urine Negative Normal Negative [facility] Comment on above: Order Comment: Name Collection Type:: Suprapubic Collection Result Comment: PERF ORMED BY: [facility] [address] [place] [address] PATHOLOGIST QUALITY CONTROL ENGINEERING TECHNICIAN JUAN DIEGO CAMACHO M.D. Performed By: #### G LULS #### Point of Care testing , pH (U) 7.5 [pH] Normal 5.0-9.0 [facility] Comment on above: Order Comment: Name Collection Type:: Suprapubic Collection Performed By: #### G LULS #### Point of Care testing , Protein,Urine Trace Normal Negative [facility] Comment on above: Order Comment: Name Collection Type:: Suprapubic Collection Performed By: #### G LULS #### Point of Care testing , RBC,Urine 3-4 Normal 0-4 [facility] Comment on above: Order Comment: Name Collection Type:: Suprapubic Collection Performed By: #### G LULS #### Point of Care testing , Specificy Hassell,Urine 1.013 Normal 1.001-1.03 0 [facility] Comment on above: Order Comment: Name Collection Type:: Suprapubic Collection Performed By: #### G LULS #### Point of Care testing , Urobilinogen,Urine Normal Normal Normal [facility] Comment on above: Order Comment: Name Collection Type:: Suprapubic Collection Performed By: #### G LULS #### Point of Care testing , WBC CLUMP, Urine Moderate Normal None Seen [facility] Comment on above: Order Comment: Name Collection Type:: Suprapubic Collection Performed By: #### G LULS #### Point of Care testing , WBC,Urine 50-100 Normal 0-4 [facility] Comment on above: Order Comment: Name Collection Type:: Suprapubic Collection Performed By: #### G LULS #### Point of Care testing , Glucose Poct Glucometerson 0 07-08-2025 Glucose [Mass/Vol] 118 mg/dL Normal [facility] Comment on above: Result Comment: [place] Glucose Reference Range is dependent on time and content of last meal. Glucose of more than 200 mg/dL in a nonstressed, ambulatory subject supports the diagnosis of Diabetes Mellitus. PERFORMED BY: [address] [address] PATHOLOGIST QUALITY CONTROL ENGINEERING TECHNICIAN JUAN DIEGO CAMACHO M.D. Performed By: #### G LULS #### Point of Care testing , Commemt1 Glu2: Cleaned Meter Normal [facility] Comment on above: Result Comment: PERF ORMED BY: [facility] [address] [place] [address] PATHOLOGIST QUALITY CONTROL ENGINEERING TECHNICIAN JUAN DIEGO CAMACHO M.D. Performed By: #### G LULS #### Point of Care testing , Glucose [Mass/Vol] 91 mg/dL Normal [facility] Comment on above: Result Comment: [facility] [place] Glucose Reference Range is dependent on time and content of last meal. Glucose of more than 200 mg/dL in a nonstressed, ambulatory subject supports the diagnosis of Diabetes Mellitus. Performed By: #### G LULS #### Point of Care testing , Urine Cultureon 07-08-2025 Bacteria identified Cx Nom (U) ORGANISM: Pseudomonas aeruginosa (O:PSEAER) Watson Count >100,000 Aerobic SABI Charge (NMIC56) SUSCEPTIBILITY ORGANISM: O:PSEAER ANTIBIOTIC INTERPRETATION SABI Amikacin S <16 Aztreonam I <4 Cefepime S 4 Ceftazidime I 4 Ceftazidime/Avibactam S <4 Ceftolozane/Tazobactam S <2 Ciprofloxacin S <0.25 Gentamicin S 4 Levofloxacin S 1 Meropenem S <1 Piperacillin/Tazobactam I <8 Tobramycin S <2 S = SUSCEPTIBLE [...] RESISTANT TO ALL B-LACTAM DRUGS. PERFORMED BY: [address] [place] [address] PATHOLOGIST QUALITY CONTROL ENGINEERING TECHNICIAN JUAN DIEGO CAMACHO M.D. Normal [facility] Comment on above: Performed By: #### G LULS #### Point of Care testing , Vitamin Aon 07-08-2025 Vitamin A 29.8 ug/dL Normal 22.0-69.5 [facility] Comment on above: Order Comment: Bella ng? (See Test/Proc Notes): Y Result Comment: Refe rence intervals for vitamin A determined from [facility] internal studies. Individuals with vitamin A less than 20 ug/dL are considered vitamin A deficient and those with serum concentrations less than 10 ug/dL are considered severely deficient. This test was developed and its performance characteristics determined by [facility]. It has not been cleared or approved by the Food and Drug Administration. Performed at: [address] [id number] Book Critic: Smita Marmolejo MD, Phone: [phone] PERFORMED BY: [address] [place] [address] PATHOLOGIST QUALITY CONTROL ENGINEERING TECHNICIAN JUAN DIEGO CAMACHO M.D. Performed By: #### G LULS #### Point of Care testing , Vitamin B1 (Thiamine) Bloodo n 07-08-2025 Vitamin B1 (Thiamine) Blood 91.4 Normal 66.5-200.0 [facility] Comment on above: Result Comment: This test was developed and its performance characteristics determined by [facility]. It has not been cleared or approved by the Food and Drug Administration. Performed at: [address] [id number] Book Critic: Smita Marmolejo MD, Phone: [phone] PERFORMED BY: [place] [address] PATHOLOGIST QUALITY CONTROL ENGINEERING TECHNICIAN JUAN DIEGO CAMACHO M.D. Performed By: #### G LULS #### Point of Care testing , Vitamin B2 Levelon Vitamin B2 Level 186 Normal 137-370 [facility] Comment on above: Result Comment: This test was developed and its performance characteristics determined by [facility]. It has not been cleared or approved by the Food and Drug Administration. Reference interval reflects Flavin Adenine Dinucleotide (FAD), that accounts for approximately 90% of the total riboflavin in whole blood. Performed at: [address] [id number] Book Critic: Smita Marmolejo MD, Phone: [phone] PERFORMED BY: [address] [address] PATHOLOGIST QUALITY CONTROL ENGINEERING TECHNICIAN JUAN DIEGO CAMACHO M.D. Performed By: #### G LULS #### Point of Care testing , Vitamin B6on 07-08-2025 Vitamin B6 <1.0 Normal 3.4-65.2 [facility] Comment on above: Result Comment: Ve rified by repeat analysis This test was developed and its performance characteristics determined by [facility]. It has not been cleared or approved by the Food and Drug Administration. Deficiency: <3.4 Marginal: 3.4 - 5.1 Adequate: >5.1 Performed at: [address] [id number] Book Critic: Smita Marmolejo MD, Phone: [phone] PERFORMED BY: [address] [address] PATHOLOGIST QUALITY CONTROL ENGINEERING TECHNICIAN JUAN DIEGO CAMACHO M.D. Performed By: #### G LULS #### Point of Care testing , 36on 07-07-2025 36 [facility], should patient continue wound vac or should they use wet to dry dressing on wound Normal [facility] Comprehensive Metabolic Pane oscar 07-07-2025 Albumin [Mass/Vol] 3.2 g/dL Low 3.5-5.7 [facility] Comment on above: Performed By: #### G LULS #### Point of Care testing , Albumin/Globulin [Mass ratio] 1.2 {ratio} Normal [facility] Comment on above: Performed By: #### G LULS #### Point of Care testing , ALP [Catalytic activity/Vol] 112 U/L High 34-104 [facility] Comment on above: Performed By: #### G LULS #### Point of Care testing , ALT [Catalytic activity/Vol] U/L Low 7-52 [facility] Comment on above: Performed By: #### G LULS #### Point of Care testing , Anion gap [Moles/Vol] 8.5 mmol/L Normal 6.0-15.0 [facility] Comment on above: Performed By: #### G LULS #### Point of Care testing , AST [Catalytic activity/Vol] 6 U/L Low 13-39 [facility] Comment on above: Performed By: #### G LULS #### Point of Care testing , Bilirubin [Mass/Vol] 0.4 mg/dL Normal 0.3-1.0 [facility] Comment on above: Performed By: #### G LULS #### Point of Care testing , Calcium [Mass/Vol] 8.4 mg/dL Low 8.6-10.3 [facility] Comment on above: Performed By: #### G LULS #### Point of Care testing , Chloride [Moles/Vol] 107 mmol/L Normal 98-107 [facility] Comment on above: Performed By: #### G LULS #### Point of Care testing , CO2 [Moles/Vol] 29.1 mmol/L Normal 21.0-31.0 [facility] [facility] Comment on above: Performed By: #### G LULS #### Point of Care testing , Creatinine [Mass/Vol] 0.93 mg/dL Normal 0.70-1.30 [facility] Comment on above: Performed By: #### G LULS #### Point of Care testing , Creatinine Clr Calc Pharmacy 94.29 Normal [facility] Comment on above: Performed By: #### G LULS #### Point of Care testing , GFR/1.73 sq M.predicted MDRD (S/P/Bld) [Vol rate/Area] mL/min/{1.73_m2} Normal [facility] Comment on above: Performed By: #### G LULS #### Point of Care testing , Globulin (S) [Mass/Vol] 2.6 g/dL Normal [facility] Comment on above: Performed By: #### G LULS #### Point of Care testing , Glucose [Mass/Vol] 109 mg/dL High 70-100 [facility] Comment on above: Result Comment: [facility] [place] Glucose Reference Range is dependent on time and content of last meal. Glucose of more than 200 mg/dL in a nonstressed, ambulatory subject supports the diagnosis of Diabetes Mellitus. ADA recommended reference range Performed By: #### G LULS #### Point of Care testing , Potassium [Moles/Vol] 3.6 mmol/L Normal 3.5-5.1 [facility] Comment on above: Performed By: #### G LULS #### Point of Care testing , Protein [Mass/Vol] 5.8 g/dL Low 6.4-8.9 [facility] Comment on above: Performed By: #### G LULS #### Point of Care testing , Sodium [Moles/Vol] 141 mmol/L Normal 136-145 [facility] Comment on above: Performed By: #### G LULS #### Point of Care testing , Urea nitrogen [Mass/Vol] 9 mg/dL Normal 7-25 [facility] Comment on above: Performed By: #### G LULS #### Point of Care testing , Copperon 07-07-2025 Copper 75 ug/dL Normal 69-132 [facility] Comment on above: Result Comment: This test was developed and its performance characteristics determined by [facility] It has not been cleared or approved by the Food and Drug Administration. Detection Limit = 5 Performed at: [address] [id number] Book Critic: Smita Marmolejo MD, Phone: [phone] PERFORMED BY: [place] [address] PATHOLOGIST QUALITY CONTROL ENGINEERING TECHNICIAN JUAN DIEGO CAMACHO M.D. Performed By: #### G LULS #### Point of Care testing , Ferritinon 07-07-2025 Ferritin [Mass/Vol] 21.3 ng/mL Low 23.9-336.2 [facility] Comment on above: Performed By: #### G LULS #### Point of Care testing , Folate, RBCon 07-07-2025 Folate, Hemolysate 349.0 ng/mL Normal Not Estab. [facility] Comment on above: Performed By: #### G LULS #### Point of Care testing , Folate, RBC 954 ng/mL Normal >498 [facility] Comment on above: Result Comment: Perf ormed at: [address] [id number] Book Critic: Rodriguez Maloney PhD, Phone: [phone] PERFORMED BY: [address] [place] [address] PATHOLOGIST QUALITY CONTROL ENGINEERING TECHNICIAN JUAN DIEGO CAMACHO M.D. Performed By: #### G LULS #### Point of Care testing , Hematocrit (Bld) [Volume fraction] 36.6 % Normal 37.5-51.0 [facility] Comment on above: Performed By: #### G LULS #### Point of Care testing , Glucose Poct Glucometerson 0 07-07-2025 Commemt1 Glu2: Cleaned Meter Normal The [facility] Comment on above: Result Comment: PERF ORMED BY: [address] [place] [address] PATHOLOGIST QUALITY CONTROL ENGINEERING TECHNICIAN JUAN DIEGO CAMACHO M.D. Performed By: #### G LULS #### Point of Care testing , Glucose [Mass/Vol] 98 mg/dL Normal [facility] Comment on above: Result Comment: [place] om Glucose Reference Range is dependent on time and content of last meal. Glucose of more than 200 mg/dL in a nonstressed, ambulatory subject supports the diagnosis of Diabetes Mellitus. Performed By: #### G LULS #### Point of Care testing , Glucose [Mass/Vol] 77 mg/dL Normal [facility] Comment on above: Result Comment: [place] om Glucose Reference Range is dependent on time and content of last meal. Glucose of more than 200 mg/dL in a nonstressed, ambulatory subject supports the diagnosis of Diabetes Mellitus. PERFORMED BY: [facility] [address] [place] [address] PATHOLOGIST QUALITY CONTROL ENGINEERING TECHNICIAN JUAN DIEGO CAMACHO M.D. Performed By: #### G LULS #### Point of Care testing , Iron and TIBC Profileon 06-19 % Iron Saturation 20.3 % Normal 20-50 [facility] Comment on above: Performed By: #### G LULS #### Point of Care testing , Iron [Mass/Vol] 64 ug/dL Normal 50-212 [facility] Comment on above: Performed By: #### G LULS #### Point of Care testing , Total Iron Binding Capacity 315 ug/dL Normal 255-450 [facility] Comment on above: Performed By: #### G LULS #### Point of Care testing , Transferrin [Mass/Vol] 225 mg/dL Normal 203-362 [facility] Comment on above: Performed By: #### G LULS #### Point of Care testing , Scan and CBCon 07-07-2025 Anisocytosis Ql (Bld) Slight Normal [facility] Comment on above: Performed By: #### G LULS #### Point of Care testing , Basophils (Bld) [#/Vol] 0.0 10*3/uL Normal 0.0-0.2 [facility] Comment on above: Performed By: #### G LULS #### Point of Care testing , Basophils/100 WBC (Bld) 0.2 % Normal . [facility] Comment on above: Performed By: #### G LULS #### Point of Care testing , Eosinophils (Bld) [#/Vol] 0.2 10*3/uL Normal 0.0-0.45 [facility] Comment on above: Performed By: #### G LULS #### Point of Care testing , Eosinophils/100 WBC (Bld) 4.5 % Normal . [facility] Comment on above: Performed By: #### G LULS #### Point of Care testing , Erythrocyte distribution width (RBC) [Ratio] 16.1 % High 12.0-14.8 [facility] Comment on above: Performed By: #### G LULS #### Point of Care testing , Hematocrit (Bld) [Volume fraction] 35.9 % Low 38.8-50.0 [facility] Comment on above: Performed By: #### G LULS #### Point of Care testing , Hemoglobin (Bld) [Mass/Vol] 11.7 g/dL Low 13.0-17.0 [facility] Comment on above: Performed By: #### G LULS #### Point of Care testing , Hypochromasia Slight Normal [facility] Comment on above: Performed By: #### G LULS #### Point of Care testing , Large Platelets Slight Normal [facility] Comment on above: Result Comment: PERF ORMED BY: [facility] [address] PATHOLOGIST QUALITY CONTROL ENGINEERING TECHNICIAN JUAN DIEGO CAMACHO M.D. Performed By: #### G LULS #### Point of Care testing , Lymphocytes (Bld) [#/Vol] 0.9 10*3/uL Low 1.00-4.8 [facility] Comment on above: Performed By: #### G LULS #### Point of Care testing , Lymphocytes/100 WBC (Bld) 23.4 % Normal . [facility] Comment on above: Performed By: #### G LULS #### Point of Care testing , MCH (RBC) [Entitic mass] 29.2 pg Normal 27.5-35.2 [facility] Comment on above: Performed By: #### G LULS #### Point of Care testing , MCV (RBC) [Entitic vol] 90.0 fL Normal 83.5-101 [facility] Comment on above: Performed By: #### G LULS #### Point of Care testing , Mean Corpuscular HGB Conc 32.4 g/dL Low 32.5-35.6 [facility] Comment on above: Performed By: #### G LULS #### Point of Care testing , Monocytes (Bld) [#/Vol] 0.4 10*3/uL Normal 0.0-0.8 [facility] Comment on above: Performed By: #### G LULS #### Point of Care testing , Monocytes/100 WBC (Bld) 9.2 % Normal . [facility] Comment on above: Performed By: #### G LULS #### Point of Care testing , Neutrophils (Bld) [#/Vol] 2.5 10*3/uL Normal 1.8-7.7 [facility] Comment on above: Performed By: #### G LULS #### Point of Care testing , Neutrophils/100 WBC (Bld) 62.7 % Normal . [facility] Comment on above: Performed By: #### G LULS #### Point of Care testing , NRBC% 0.1 /100{WBC} Normal 0-0.5 [facility] Comment on above: Performed By: #### G LULS #### Point of Care testing , Platelet Estimate Decreased Normal Normal [facility] Comment on above: Performed By: #### G LULS #### Point of Care testing , Platelet mean volume (Bld) [Entitic vol] 11.2 fL High 6.6-10.[address] [facility] Comment on above: Performed By: #### G LULS #### Point of Care testing , Platelet Morphology Normal Normal Normal The [facility] Comment on above: Performed By: #### G LULS #### Point of Care testing , Platelets (Bld) [#/Vol] 87 10*3/uL Low 150-450 [facility] Comment on above: Performed By: #### G LULS #### Point of Care testing , Polychromasia Slight Normal [facility] Comment on above: Performed By: #### G LULS #### Point of Care testing , RBC (Bld) [#/Vol] 4.00 10*6/uL Normal 3.90-5.60 [facility] Comment on above: Performed By: #### G LULS #### Point of Care testing , Stomatocytes Slight Normal The [facility] Comment on above: Performed By: #### G LULS #### Point of Care testing , WBC (Bld) [#/Vol] 4.0 10*3/uL Low 4.1-10.5 [facility] Comment on above: Performed By: #### G LULS #### Point of Care testing , White Blood Count 4.0 [CFU]/mL Low 4.1-10.5 [facility] Comment on above: Performed By: #### G LULS #### Point of Care testing , Thyroid Stimulating Hormoneo n 07-07-2025 TSH Qn 1.21 m[IU]/L Normal 0.45-5.[address] [facility] Comment on above: Result Comment: PERF ORMED BY: [facility] [address] [place] [address] PATHOLOGIST QUALITY CONTROL ENGINEERING TECHNICIAN JUAN DIEGO CAMACHO M.D. Performed By: #### G LULS #### Point of Care testing , Vitamin B12on 07-07-2025 Cobalamin (Vitamin B12) [Mass/Vol] 465 pg/mL Normal 180-914 [facility] Comment on above: Performed By: #### G LULS #### Point of Care testing , Vitamin D 25 Hydroxy,Tot+D2+ D3on 07-07-2025 [facility] Vitamin D 25 [place] 13 ng/mL Normal . [facility] Comment on above: Result Comment: Refe rence Range: All Ages: Target levels 30 - 100 Performed By: #### G LULS #### Point of Care testing , Vitamin D-2 <1.0 Normal . [facility] Comment on above: Result Comment: This test was developed and its performance characteristics determined by [facility]. It has not been cleared or approved by the Food and Drug Administration. Performed By: #### G LULS #### Point of Care testing , Vitamin D-3 13 ng/mL Normal . [facility] Comment on above: Result Comment: This test was developed and its performance characteristics determined by [facility]. It has not been cleared or approved by the Food and Drug Administration. Performed at: [facility] [address] [place] [id number] Book Critic: Jonh Ott MD, Phone: [phone] PERFORMED BY: [address] [address] PATHOLOGIST QUALITY CONTROL ENGINEERING TECHNICIAN JUAN DIEGO CAMACHO M.D. Performed By: #### G LULS #### Point of Care testing , Zinc, Whole Bloodon 07-07-20 25 Zinc, Whole Blood 616 ug/dL Normal 459-781 [facility] Comment on above: Result Comment: This test was developed and its performance characteristics determined by [facility]. It has not been cleared or approved by the Food and Drug Administration. Please note reference interval change Performed at: [facility] Lab[address] [id number] Book Critic: Smita Marmolejo MD, Phone: [phone] PERFORMED BY: [facility] [address] [place] [address] PATHOLOGIST QUALITY CONTROL ENGINEERING TECHNICIAN JUAN DIEGO CAMACHO M.D. Performed By: #### G LULS #### Point of Care testing , CBC WITH AUTO DIFFERENTIALon 07-06-2025 Basophils (Bld) [#/Vol] 0.00 10*3/uL Normal 0.00-0.20 [facility] Comment on above: Performed By: #### L [id number] ####[facility] (BEAKER)[address] [place] [address] Basophils/100 WBC (Bld) 0.0 % Normal 0.0-1.0 [facility] Comment on above: Performed By: #### L [id number] ####[facility] (BEAKER)[address] [place] [address] Eosinophils (Bld) [#/Vol] 0.18 10*3/uL Normal 0.00-0.50 [facility] Comment on above: Performed By: #### L [id number] ####[facility] (BEAKER)[address] [place] [address] Eosinophils/100 WBC (Bld) 3.2 % Normal 0.0-6.0 [facility] Comment on above: Performed By: #### L [id number] ####[facility] (BEAKER)[address] [place] [address] Erythrocyte distribution width (RBC) [Ratio] 16.1 % High 11.5-15.0 [facility] Comment on above: Performed By: #### L [id number] ####[facility] (BEAKER)[address] [place] [address] ERYTHROCYTE MEAN CORPUSCULAR HEMOGLOBIN CONCENTRATION (G/DL) BY AUTOMATED 31.0 g/dL Low 32.0-35.0 [facility] Comment on above: Performed By: #### L [id number] ####[facility] (BEAKER)[address] [place] [address] Hematocrit (Bld) [Volume fraction] 38.4 % Normal [facility] Comment on above: Performed By: #### L [id number] ####[facility] (BEAKER)[address] [place] [address] Performed By: #### L [id number] ####[facility] (BEAKER)[address] [place] [address] Hemoglobin (Bld) [Mass/Vol] 11.9 g/dL Low 12.0-17.0 [facility] Comment on above: Performed By: #### L [id number] ####[facility] (BEAKER)[address] [place] [address] Immature granulocytes (Bld) [#/Vol] 0.02 10*3/uL Normal 0.00-0.20 [facility] Comment on above: Performed By: #### L [id number] ####[facility] (BEAKER)[address] [place] [address] Immature granulocytes/100 WBC (Bld) 0.4 % Normal 0.0-1.0 [facility] Comment on above: Performed By: #### L [id number] ####[facility] (BEAKER)[address] [place] [address] IMMATURE PLATELET FRACTION % 13.2 % High 0.8-6.3 [facility] Comment on above: Performed By: #### L [id number] ####[facility] (BEAKER)[address] [place] [address] Lymphocytes (Bld) [#/Vol] 1.23 10*3/uL Normal 1.20-4.00 [facility] Comment on above: Performed By: #### L [id number] ####[facility] (BEAKER)[address] [place] [address] Lymphocytes/100 WBC (Bld) 22.0 % Normal 20.0-45.0 [facility] Comment on above: Performed By: #### L [id number] ####[facility] (BEAKER)[address] [place] [address] MCH (RBC) [Entitic mass] 29.2 pg Normal 27.0-33.0 [facility] Comment on above: Performed By: #### L [id number] ####[facility] (BEAKER)[address] [place] [address] MCV (RBC) [Entitic vol] 94.1 fL Normal 82.0-98.0 [facility] Comment on above: Performed By: #### L [id number] ####[facility] (BEAKER)[address] [place] [address] Monocytes (Bld) [#/Vol] 0.52 10*3/uL Normal 0.10-1.00 [facility] Comment on above: Performed By: #### L [id number] ####[facility] (BEAKER)[address] [place] [address] Monocytes/100 WBC (Bld) 9.3 % Normal 5.0-12.0 [facility] Comment on above: Performed By: #### L [id number] ####[facility] (BEAKER)[address] [place] [address] Neutrophils (Bld) [#/Vol] 3.64 10*3/uL Normal 1.60-7.60 [facility] Comment on above: Performed By: #### L [id number] ####[facility] (BEAKER)[address] [place] [address] Neutrophils/100 WBC (Bld) 65.1 % Normal 40.0-72.0 [facility] Comment on above: Performed By: #### L [id number] ####[facility] (BEAKER)[address] [place] [address] NRBC (PER 100 WBCS) BY AUTOMATED COUNT 0.0 % Normal 0 [facility] Comment on above: Performed By: #### L [id number] ####[facility] (BEAKER)[address] [place] [address] PLATELETS (10*3/UL) IN BLOOD AUTOMATED COUNT 136 10*3/uL Low 150-400 [facility] Comment on above: Performed By: #### L [id number] ####[facility] (BEAKER)[address] [place] [address] RBC (Bld) [#/Vol] 4.08 10*6/uL Normal 3.80-5.70 [facility] Comment on above: Performed By: #### L [id number] ####[facility] (BEAKER)[address] [place] [address] WBC (Bld) [#/Vol] 5.59 10*3/uL Normal 4.00-10.60 [facility] Comment on above: Performed By: #### L [id number] ####[facility] (BESAVANNAH)[address] [place] [address] COMPREHENSIVE METABOLIC PANE Oscar 07-06-2025 ALANINE AMINOTRANSFERASE (SGPT) (U/L) IN SER/PLAS <3 Low 7-52 [facility] Comment on above: Performed By: #### L [id number] ####[facility] (SAVANANH)[address] [place] [address] Albumin [Mass/Vol] 3.4 g/dL Low 3.5-5.7 [facility] Comment on above: Performed By: #### L [id number] ####[facility] (SAVANNAH)[address] [place] [address] ALP [Catalytic activity/Vol] 114 U/L High 34-104 [facility] Comment on above: Performed By: #### L [id number] ####[facility] (SAVANNAH)[address] [place] [address] Anion gap [Moles/Vol] 9 mmol/L Normal 7-20 [facility] Comment on above: Performed By: #### L [id number] ####[facility] (BESAV[facility]NAH)[address] [place] [address] AST [Catalytic activity/Vol] 6 U/L Low 13-39 [facility] Comment on above: Performed By: #### L [id number] ####[facility] (BESAV[facility]NAH)[address] [place] [address] Bilirubin [Mass/Vol] 0.5 mg/dL Normal 0.3-1.0 [facility] Comment on above: Performed By: #### L [id number] ####[facility] (BESAV[facility]NAH)[address] [place] [address] Calcium [Mass/Vol] 8.9 mg/dL Normal 8.6-10.3 [facility] Comment on above: Performed By: #### L [id number] ####[facility] (BEBANNER)[address] [place] [address] Chloride [Moles/Vol] 105 mmol/L Normal 98-107 [facility] Comment on above: Performed By: #### L [id number] ####[facility] ([facility])[address] [place] [address] CO2 [Moles/Vol] 30 mmol/L Normal 21-31 [facility] Comment on above: Performed By: #### L [id number] ####[facility] ([facility])[address] [place] [address] Creatinine [Mass/Vol] 0.92 mg/dL Normal 0.60-1.30 [facility] Comment on above: Performed By: #### L [id number] ####[facility] ([facility])[address] [place] [address] GLOMERULAR FILTRATION RATE ML/MIN/1.73 SQ M.PREDICTED 68.7 mL/min/1.73m*2 Normal >60.0 [facility] Comment on above: Result Comment: The [facility]???s estimated glomerular filtration rate (eGFR) will no longer include consideration of race in its calculation. The National Kidney Foundation???s eGFR Task Force developed new recommendations for the estimation of the glomerular filtration rate in the [place] They recommend immediate implementation of the new equation refit without the race variable in all laboratories because the calculation does not include race. In addition to not including race in the calculation and reporting, it included diversity in its development, and has acceptable performance characteristics and potential consequences that do not disproportionately affect any one group of individuals. Performed By: #### L [id number] ####[facility] ([facility])[address] [place] [address] Glucose [Mass/Vol] 83 mg/dL Normal 70-100 [facility] Comment on above: Performed By: #### L [id number] ####[facility] (BE[facility]NER)[address] [place] [address] Potassium [Moles/Vol] 3.6 mmol/L Normal 3.5-5.1 [facility] Comment on above: Performed By: #### L [id number] ####[facility] (BEAKER)[address] [place] [address] Protein [Mass/Vol] 6.4 g/dL Normal 6.0-8.3 [facility] Comment on above: Performed By: #### L [id number] ####[facility] ([facility])[address] [place] [address] Sodium [Moles/Vol] 140 mmol/L Normal 136-145 [facility] Comment on above: Performed By: #### L [id number] ####[facility] ([facility])[address] [place] [address] Urea nitrogen [Mass/Vol] 8 mg/dL Normal 7-25 [facility] Comment on above: Performed By: #### L [id number] ####[facility] ([facility])[address] [place] [address] UREA NITROGEN/CREATININE (MASS RATIO) IN SER/PLAS 8.7 Normal [facility] Comment on above: Performed By: #### L [id number] ####[facility] (BE[facility]NER)[address] [place] [address] COPPER, SERUMon 07-06-2025 COPPER 85.5 ug/dL Normal 70.0-140.0 [facility] Comment on above: Result Comment: INTE RPRETIVE INFORMATION: Copper, Serum or PlasmaElevated results may be due to skin or collection-relatedcontamination, including the use of a noncertified metal-freecollection/transport tube. If contamination concerns exist due toelevated levels of serum/plasma copper, confirmation with a secondspecimen collected in a certified metal-free tube is recommended.Serum copper may be elevated with infection, inflammation, stress,and copper supplementation. In females, elevated copper may alsobe caused by oral contraceptives and (concentrations maybe elevated up to 3 times normal during the third trimester).This test was developed and its performance characteristicsdetermined by [facility]. It has not been cleared orapproved by the [place] Food and Drug Administration. This test wasperformed in a CLIA certified laboratory and is intended forclinical purposes.Performed By: [facility] [place], [place] [id number] Director: Calin Cui MD, PhDCLIA Number: [id number] Performed By: #### L [id number] ####[facility] ([facility])[address] [place] [address] FERRITINon 07-06-2025 FERRITIN (NG/ML) IN SER/PLAS 25.0 ng/mL Normal 11.0-336.0 [facility] Comment on above: Performed By: #### L [id number] ####[facility] (BEAKER)[address] [place] [address] FOLATE RBCon 07-06-2025 RBC FOLATE 812 ng/mL Normal >=366 [facility] Comment on above: Result Comment: Perf ormed By: [facility] [place] [id number] Director: Calin Cui MD, PhDCLIA Number: [id number] Performed By: #### L [id number] ####[facility] ([facility])[address] [place] [address] Glucose Poct Glucometerson 0 07-06-2025 Glucose [Mass/Vol] 109 mg/dL Normal [facility] Comment on above: Result Comment: [facility] [place] Glucose Reference Range is dependent on time and content of last meal. Glucose of more than 200 mg/dL in a nonstressed, ambulatory subject supports the diagnosis of Diabetes Mellitus. PERFORMED BY: [address] [place] [address] PATHOLOGIST QUALITY CONTROL ENGINEERING TECHNICIAN JUAN DIEGO CAMACHO M.D. Performed By: #### G LULS #### Point of Care testing , Glucose [Mass/Vol] 90 mg/dL Normal [facility] Comment on above: Result Comment: [facility] [place] Glucose Reference Range is dependent on time and content of last meal. Glucose of more than 200 mg/dL in a nonstressed, ambulatory subject supports the diagnosis of Diabetes Mellitus. PERFORMED BY: [facility] [address] [place] [address] PATHOLOGIST QUALITY CONTROL ENGINEERING TECHNICIAN JUAN DIEGO CAMACHO M.D. Performed By: #### G AMBREEN #### Point of Care testing , IRON AND TIBCon 07-06-2025 IRON (UG/DL) IN SER/PLAS 81 ug/dL Normal 50-212 [facility] Comment on above: Performed By: #### L [id number] ####[facility] ([facility])[address] [place] [address] IRON BINDING CAPACITY (UG/DL) IN SER/PLAS 307 ug/dL Normal 250-450 [facility] Comment on above: Performed By: #### L [id number] ####[facility] ([facility])[address] [place] [address] IRON BINDING CAPACITY.UNSATURATED (UG/DL) IN SER/PLAS 226.0 ug/dL Normal 155.0-355. 0 [facility] Comment on above: Performed By: #### L [id number] ####[facility] ([facility])[address] [place] [address] IRON SATURATION (%) IN SER/PLAS 26 % Normal 20-50 [facility] Comment on above: Performed By: #### L [id number] ####[facility] ([facility])[address] [place] [address] Labon 07-06-2025 Lab Normal [facility] MAGNESIUMon 07-06-2025 Magnesium [Mass/Vol] 2.1 mg/dL Normal 1.9-2.7 [facility] Comment on above: Performed By: #### L [id number] ####[facility] ([facility])[address] [place] [address] NIACIN (VITAMIN B3)on 2024 NICOTINAMIDE 25 ng/mL Normal [facility] Comment on above: Result Comment: Seru m or PlasmaReporting Limit: 10 ng/mLSynonym(s): Niacinamide; Vitamin B3; Niacin(R)Nicotinamide is a metabolite of nicotinic acid, is thecommon form of niacin included in vitamin preparationsand is also added to many foods as a vitaminsupplement. Due to the large variability in themetabolism of nicotinic acid, plasma concentrations ofthis metabolite also are variable.In one study, fasting plasma concentrations werereported to be approximately 40 ng/mL. In anotherstudy it was reported that the administration of asingle 1000 mg extended-release tablet of nicotinicacid resulted in a mean peak Nicotinamideconcentration of 400 ng/mL between 5 and 10 hours postdose, decreasing to about 100 ng/mL by 16 hours postdose.The administration of multiple oral doses of nicotinicacid (for a total of 2000 mg) resulted in thefollowing mean peak Nicotinamide plasma concentrations:25 mg every 10 min. for 80 doses (over 13 hours): 1300ng/mL50 mg every 10 min. for 40 doses (over 6.5 hours):2300 ng/mL100 mg every 10 min. for 20 doses (over 3 hours): 2000ng/mLThis test should be considered as a therapeutic drugmonitoring/toxicological test associated with niacin(Vitamin B3) supplementation. Care should be taken inthe use of this test for basal Vitamin F4byegndddnqccg. The supplied reference comment does notreflect normal, endogenous Vitamin B3 concentrations.Analysis by High Performance Liquid Chromatography/Tandem Mass Spectrometry (LC-MS/MS) Performed By: #### L [id number] ####[facility] [address] [address] NICOTINIC ACID None Det Normal [facility] Comment on above: Result Comment: Seru m or PlasmaReporting Limit: 10 ng/mLSynonym(s): Niacor(R); Niaspan(R); Slo-Niacin(R);Vitamin J6Qvckywivk acid occurs naturally in plants and animalsand is also added to many foods as a vitaminsupplement. Due to the large variability in themetabolism of nicotinic acid, the dosing preparationused (immediate-release vs. extended-release), and themg doses used, the serum concentrations may range fromless than 10 ng/mL to about 29301 ng/mL.After oral administration of an immediate-releasetablet, peak plasma concentrations are achieved in 30to 60 min; after oral administration of anextended-release capsule, peak plasma concentrationsoccur in 4 to 5 hours. The plasma half-life ofnicotinic acid is about 1 hour.In one study, fasting plasma concentrations werereported to be approximately 10 ng/mL. In anotherstudy it was reported that the administration of asingle 1000 mg extended-release tablet resulted inmean nicotinic acid concentrations of less than 50ng/mL.The administration of multiple oral doses of nicotinicacid (for a total of 2000 mg) resulted in thefollowing mean peak nicotinic acid plasmaconcentrations:25 mg every 10 min. for 80 doses (over 13 hours): 1100ng/mL50 mg every 10 min. for 40 doses (over 6.5 hours):5400 ng/mL100 mg every 10 min. for 20 doses (over 3 hours):33484 ng/mLThis test should be considered as a therapeutic drugmonitoring/toxicological test associated with niacin(Vitamin B3) supplementation. Care should be taken inthe use of this test for basal Vitamin X3sstrqbnmirkpd. The supplied reference comment does notreflect normal, endogenous Vitamin B3 concentrations.Analysis by High Performance Liquid Chromatography/Tandem Mass Spectrometry (LC-MS/MS) Performed By: #### L [id number] ####[facility] ([facility])[address] [place] [address] NICOTINURIC ACID None Det Normal [facility] Comment on above: Result Comment: Seru m or PlasmaReporting Limit: 10 ng/mLSynonym(s): Niacin MetaboliteNicotinuric acid is a metabolite of nicotinic acid andnicotinamide. Due to the large variability in themetabolism of nicotinic acid and nicotinamide, plasmaconcentrations of this metabolite also are variable.In one study it was reported that the administrationof a single 1000 mg extended-release tablet ofnicotinic acid resulted in a mean peak nicotinuricacid concentration of over 1000 ng/mL within 2 hourspost dose, decreasing to less than 200 ng/mL by 6hours and less than 50 ng/mL by 12 hours post dose.The administration of multiple oral doses of nicotinicacid (for a total of 2000 mg) resulted in thefollowing mean peak nicotinuric acid plasmaconcentrations:25 mg every 10 min. for 80 doses (over 13 hours): 950ng/mL50 mg every 10 min. for 40 doses (over 6.5 hours):2300 ng/mL100 mg every 10 min. for 20 doses (over 3 hours): 5100ng/mLThis test should be considered as a therapeutic drugmonitoring/toxicological test associated with niacin(Vitamin B3) supplementation. Care should be taken inthe use of this test for basal Vitamin B9qywxqoapfsrgo. The supplied reference comment does notreflect normal, endogenous Vitamin B3 concentrations.Analysis by High Performance Liquid Chromatography/Tandem Mass Spectrometry (LC-MS/MS)This test was developed and its performancecharacteristics determined by [facility]. It has notbeen cleared or approved by the [place] Food and DrugAdministration.Digital data review may have taken place remotely byqualified [facility] staff utilizing a secure VPN connectionfor some or all of the reported results. This is inaccordance with and follows CLIA regulations.Testing performed at [facility] [place] [id number] Poon, PhD, F-ABFT, DABCC-TC, LaboratoryDirectorCLIA [id number] Performed By: #### L [id number] ####[facility] ([employer] [place] [address] PHOSPHORUSon 07-06-2025 Magnesium [Mass/Vol] 1.8 mg/dL Low 2.5-5.0 [facility] Comment on above: Performed By: #### L [id number] ####[facility] ([facility])[address] [place] [address] TSHon 07-06-2025 THYROTROPIN (MIU/L) IN SER/PLAS BY DETECTION LIMIT <= 0.05 MIU/L 1.59 mIU/L Normal 0.34-5.60 [facility] Comment on above: Performed By: #### L [id number] ####[facility] ([facility])[address] [place] [address] VITAMIN Aon 07-06-2025 VITAMIN A (RETINOL) 0.46 mg/L Normal 0.30-1.20 [facility] Comment on above: Performed By: #### L [id number] ####[facility] ([facility])[address] [place] [address] VITAMIN A (RETINYL PALMITATE) <0.02 Normal 0.00-0.10 [facility] Comment on above: Performed By: #### L [id number] ####[facility] ([facility])[address] [place] [address] VITAMIN A, SER/TYSHAWN - INTERPRETATION Normal Normal [facility] Comment on above: Result Comment: This test was developed and its performance characteristicsdetermined by [facility]. It has not been cleared orapproved by the [place] Food and Drug Administration. This test wasperformed in a CLIA certified laboratory and is intended forclinical purposes.Performed By: [facility] [place] [id number] Director: Calin Cui MD, PhDCLIA Number: [id number] Performed By: #### L [id number] ####[facility] ([facility])[address] [place] [address] VITAMIN B1on 07-06-2025 VITAMIN B1, PLASMA 5 nmol/L Normal 4-15 [facility] Comment on above: Result Comment: INTE RPRETIVE DATA: Vitamin B1, PlasmaThiamine (vitamin B1) is reported. However, thiamine diphosphate(TDP), the biologically active form of thiamine, is not found inmeasurable concentrations in plasma, and is best determined inwhole blood specimens. Plasma thiamine concentration reflectsrecent intake rather than body stores.This test was developed and its performance characteristicsdetermined by [facility]. It has not been cleared orapproved by the [place] Food and Drug Administration. This test wasperformed in a CLIA certified laboratory and is intended forclinical purposes.Performed By: [facility] [place], [place] [address]Lglxzzdjvf Director: Calin Cui MD, PhDCLIA Number: [id number] Performed By: #### L AB125 ####[facility] ([facility])[address] [place] [address] VITAMIN B12on 07-06-2025 Cobalamin (Vitamin B12) [Mass/Vol] 487 pg/mL Normal 180-914 [facility] Comment on above: Result Comment: REFE RENCE RANGES:180-914 pg/mL Obswzs640-522 pg/mL Indeterminate<145 pg/mL Deficient Performed By: #### L AB67 ####[facility] ([facility])[address] [place] [address] VITAMIN B2on 07-06-2025 VITAMIN B2 12 nmol/L Normal 5-50 [facility] Comment on above: Result Comment: INTE RPRETIVE INFORMATION: Vitamin B2, PlasmaThis test was developed and its performance characteristicsdetermined by [facility]. It has not been cleared orapproved by the [place] Food and Drug Administration. This test wasperformed in a CLIA certified laboratory and is intended forclinical purposes.Performed By: [facility] [place] [id number] Director: Calin Cui MD, PhDCLIA Number: [id number] Performed By: #### L [id number] ####[facility] ([facility])[address] [place] [address] VITAMIN B6on 07-06-2025 VITAMIN B6 <5.0 Low 20.0-125.0 [facility] Comment on above: Result Comment: INTE RPRETIVE INFORMATION: Vitamin B6 (Pyridoxal 5-Phosphate)Pyridoxal 5'-phosphate measured in a specimen collected followingan 8-hour or overnight fast accurately indicates vitamin I8iejvreubdra status. Non-fasting specimen concentration reflectsrecent vitamin intake.This test was developed and its performance characteristicsdetermined by [facility]. It has not been cleared orapproved by the [place] Food and Drug Administration. This test wasperformed in a CLIA certified laboratory and is intended forclinical purposes.Performed By: [facility] [place], [place] [address]Qkabwsxwdn Director: Calin Cui MD, PhDCLIA Number: [id number] Performed By: #### L [id number] ####[facility] ([facility])[address] [place] [address] VITAMIN D 25 HYDROXYon 07-06 CALCIDIOL (25 [place] VITAMIN D3) (NG/ML) IN SER/PLAS 12.8 ng/mL Low 30.0-80.0 [facility] Comment on above: Result Comment: >80. 0 Toxicity possible Performed By: #### L [id number] ####[facility] ([facility])[address] [address] ZINCon 07-06-2025 ZINC 63.9 ug/dL Normal 60.0-120.0 [facility] Comment on above: Result Comment: INTE RPRETIVE INFORMATION: Zinc, Serum or PlasmaElevated results may be due to skin or collection-relatedcontamination, including the use of a noncertified metal-freecollection/transport tube. If contamination concerns exist due toelevated levels of serum/plasma zinc, confirmation with a secondspecimen collected in a certified metal-free tube is recommended.Circulating zinc concentrations are dependent on albumin statusand are depressed with malnutrition. Zinc may also be loweredwith infection, inflammation, stress, oral contraceptives, andpregnancy. Zinc may be elevated with zinc supplementation orfasting. Elevated zinc concentrations may interfere with copperabsorption.This test was developed and its performance characteristicsdetermined by [facility]. It has not been cleared orapproved by the [place] Food and Drug Administration. This test wasperformed in a CLIA certified laboratory and is intended forclinical purposes.Performed By: [facility] [place], [place] [address]Dqogklkrri Director: Calin Cui MD, PhDCLIA Number: [id number] Performed By: #### L [id number] ####[facility] ([facility])[address] [place] [address] Glucose Poct Glucometerson 0 07-05-2025 Glucose [Mass/Vol] 109 mg/dL Normal [facility] Comment on above: Result Comment: [place] Glucose Reference Range is dependent on time and content of last meal. Glucose of more than 200 mg/dL in a nonstressed, ambulatory subject supports the diagnosis of Diabetes Mellitus. PERFORMED BY: [place] [address] PATHOLOGIST QUALITY CONTROL ENGINEERING TECHNICIAN JUAN DIEGO CAMACHO M.D. Performed By: #### C UU #### [address] Glucose [Mass/Vol] 103 mg/dL Normal [facility] Comment on above: Result Comment: [place] om Glucose Reference Range is dependent on time and content of last meal. Glucose of more than 200 mg/dL in a nonstressed, ambulatory subject supports the diagnosis of Diabetes Mellitus. PERFORMED BY: [place] [address] PATHOLOGIST QUALITY CONTROL ENGINEERING TECHNICIAN JUAN DIEGO CAMACHO M.D. Performed By: #### G LULS #### Point of Care testing , Glucose Poct Glucometerson 0 07-04-2025 Glucose [Mass/Vol] 103 mg/dL Normal [facility] Comment on above: Result Comment: [place] om Glucose Reference Range is dependent on time and content of last meal. Glucose of more than 200 mg/dL in a nonstressed, ambulatory subject supports the diagnosis of Diabetes Mellitus. PERFORMED BY: [place] [address] PATHOLOGIST QUALITY CONTROL ENGINEERING TECHNICIAN JUAN DIEGO CAMACHO M.D. Performed By: #### G LULS #### Point of Care testing , Glucose [Mass/Vol] 88 mg/dL Normal [facility] Comment on above: Result Comment: [place] om Glucose Reference Range is dependent on time and content of last meal. Glucose of more than 200 mg/dL in a nonstressed, ambulatory subject supports the diagnosis of Diabetes Mellitus. PERFORMED BY: [place] [address] PATHOLOGIST QUALITY CONTROL ENGINEERING TECHNICIAN JUAN DIEGO CAMACHO M.D. Performed By: #### C UU #### [place] [id number] [facility] Basic Metabolic Panelon 09-1 Anion gap [Moles/Vol] 8.9 mmol/L Normal 6.0-15.0 [facility] Comment on above: Performed By: #### C UU #### [address] Calcium [Mass/Vol] 8.7 mg/dL Normal 8.6-10.3 [facility] Comment on above: Performed By: #### C UU #### [address] Chloride [Moles/Vol] 107 mmol/L Normal 98-107 [facility] Comment on above: Performed By: #### C UU #### [address] CO2 [Moles/Vol] 28.9 mmol/L Normal 21.0-31.0 [facility] Comment on above: Performed By: #### C UU #### [address] Creatinine [Mass/Vol] 0.83 mg/dL Normal 0.70-1.30 [facility] Comment on above: Performed By: #### C UU #### [address] Creatinine Clr Calc Pharmacy 105.65 Normal [facility] Comment on above: Result Comment: PERF ORMED BY: [place] [address] PATHOLOGIST QUALITY CONTROL ENGINEERING TECHNICIAN JUAN DIEGO CAMACHO M.D. Performed By: #### C UU #### [address] GFR/1.73 sq M.predicted MDRD (S/P/Bld) [Vol rate/Area] mL/min/{1.73_m2} Normal [facility] Comment on above: Performed By: #### C UU #### [address] Glucose [Mass/Vol] 82 mg/dL Normal 70-100 [facility] Comment on above: Result Comment: [place] Glucose Reference Range is dependent on time and content of last meal. Glucose of more than 200 mg/dL in a nonstressed, ambulatory subject supports the diagnosis of Diabetes Mellitus. ADA recommended reference range Performed By: #### C UU #### [address] Potassium [Moles/Vol] 3.8 mmol/L Normal 3.5-5.1 [facility] Comment on above: Result Comment: Hemo lysis is present at a level that could interfere with the result. Contact lab if redraw is required Performed By: #### C UU #### [address] Sodium [Moles/Vol] 141 mmol/L Normal 136-145 [facility] Comment on above: Performed By: #### C UU #### [address] Urea nitrogen [Mass/Vol] 7 mg/dL Normal 7-25 [facility] Comment on above: Performed By: #### C UU #### [address] Complete Blood Count Auto Di ffon 07-03-2025 Basophils (Bld) [#/Vol] 0.0 10*3/uL Normal 0.0-0.2 [facility] Comment on above: Result Comment: PERF ORMED BY: [place] [address] PATHOLOGIST QUALITY CONTROL ENGINEERING TECHNICIAN JUAN DIEGO CAMACHO M.D. Performed By: #### C UU #### [address] Basophils/100 WBC (Bld) 0.5 % Normal . [facility] Comment on above: Performed By: #### C UU #### [address] Eosinophils (Bld) [#/Vol] 0.1 10*3/uL Normal 0.0-0.45 [facility] Comment on above: Performed By: #### C UU #### [address] Eosinophils/100 WBC (Bld) 4.0 % Normal . [facility] Comment on above: Performed By: #### C UU #### [address] Erythrocyte distribution width (RBC) [Ratio] 16.4 % High 12.0-14.8 [facility] Comment on above: Performed By: #### C UU #### [address] Hematocrit (Bld) [Volume fraction] 32.9 % Low 38.8-50.0 [facility] Comment on above: Performed By: #### C UU #### [address] Hemoglobin (Bld) [Mass/Vol] 10.8 g/dL Low 13.0-17.0 [facility] Comment on above: Performed By: #### C UU #### [address] Lymphocytes (Bld) [#/Vol] 1.0 10*3/uL Normal 1.00-4.8 [facility] Comment on above: Performed By: #### C UU #### [address] Lymphocytes/100 WBC (Bld) 29.9 % Normal . [facility] Comment on above: Performed By: #### C UU #### [address] MCH (RBC) [Entitic mass] 29.2 pg Normal 27.5-35.2 [facility] Comment on above: Performed By: #### C UU #### [address] MCV (RBC) [Entitic vol] 89.0 fL Normal 83.5-101 [facility] Comment on above: Performed By: #### C UU #### [address] Mean Corpuscular HGB Conc 32.8 g/dL Normal 32.5-35.6 [facility] Comment on above: Performed By: #### C UU #### [address] Monocytes (Bld) [#/Vol] 0.5 10*3/uL Normal 0.0-0.8 [facility] Comment on above: Performed By: #### C UU #### [place] [address] [place] Monocytes/100 WBC (Bld) 14.4 % Normal . [facility] Comment on above: Performed By: #### C UU #### [address] Neutrophils (Bld) [#/Vol] 1.7 10*3/uL Low 1.8-7.7 [facility] Comment on above: Performed By: #### C UU #### [address] Neutrophils/100 WBC (Bld) 51.2 % Normal . [facility] Comment on above: Performed By: #### C UU #### [address] NRBC% 0.1 /100{WBC} Normal 0-0.5 [facility] Comment on above: Performed By: #### C UU #### [address] Platelet mean volume (Bld) [Entitic vol] 10.8 fL High 6.6-10.[address] [facility] Comment on above: Performed By: #### C UU #### [place] [address] [place] Platelets (Bld) [#/Vol] 129 10*3/uL Low 150-450 [facility] Comment on above: Performed By: #### C UU #### [place] [address] [place] RBC (Bld) [#/Vol] 3.69 10*6/uL Low 3.90-5.60 [facility] Comment on above: Performed By: #### C UU #### [place] [address] [place] WBC (Bld) [#/Vol] 3.4 10*3/uL Low 4.1-10.5 [facility] Comment on above: Performed By: #### C UU #### [address] [place] [address] [place] White Blood Count 3.4 [CFU]/mL Low 4.1-10.5 [facility] Comment on above: Performed By: #### C UU #### [address] Glucose Poct Glucometerson 0 07-03-2025 Glucose [Mass/Vol] 103 mg/dL Normal [facility] Comment on above: Result Comment: [place] om Glucose Reference Range is dependent on time and content of last meal. Glucose of more than 200 mg/dL in a nonstressed, ambulatory subject supports the diagnosis of Diabetes Mellitus. PERFORMED BY: [place] [address] PATHOLOGIST QUALITY CONTROL ENGINEERING TECHNICIAN JUAN DIEGO CAMACHO M.D. Performed By: #### G LULS #### Point of Care testing , Glucose [Mass/Vol] 90 mg/dL Normal [facility] Comment on above: Result Comment: [place] Glucose Reference Range is dependent on time and content of last meal. Glucose of more than 200 mg/dL in a nonstressed, ambulatory subject supports the diagnosis of Diabetes Mellitus. PERFORMED BY: [place] [address] PATHOLOGIST QUALITY CONTROL ENGINEERING TECHNICIAN JUAN DIEGO CAMACHO M.D. Performed By: #### C UU #### [address] Glucose [Mass/Vol] 91 mg/dL Normal [facility] Comment on above: Result Comment: [place] om Glucose Reference Range is dependent on time and content of last meal. Glucose of more than 200 mg/dL in a nonstressed, ambulatory subject supports the diagnosis of Diabetes Mellitus. PERFORMED BY: [place] [address] PATHOLOGIST QUALITY CONTROL ENGINEERING TECHNICIAN JUAN DIEGO CAMACHO M.D. Performed By: #### G LULS #### Point of Care testing , Glucose Poct Glucometerson 0 07-02-2025 Glucose [Mass/Vol] 106 mg/dL Normal [facility] Comment on above: Result Comment: [place] om Glucose Reference Range is dependent on time and content of last meal. Glucose of more than 200 mg/dL in a nonstressed, ambulatory subject supports the diagnosis of Diabetes Mellitus. PERFORMED BY: [address] [place] [id number] PATHOLOGIST QUALITY CONTROL ENGINEERING TECHNICIAN JUAN DIEGO CAMACHO M.D. Performed By: #### G LULS #### Point of Care testing , Glucose [Mass/Vol] 99 mg/dL Normal [facility] Comment on above: Result Comment: [place] Glucose Reference Range is dependent on time and content of last meal. Glucose of more than 200 mg/dL in a nonstressed, ambulatory subject supports the diagnosis of Diabetes Mellitus. PERFORMED BY: [address] [address] PATHOLOGIST QUALITY CONTROL ENGINEERING TECHNICIAN JUAN DIEGO CAMACHO M.D. Performed By: #### G LULS #### Point of Care testing , Glucose [Mass/Vol] 113 mg/dL Normal [facility] Comment on above: Result Comment: [facility] [place] Glucose Reference Range is dependent on time and content of last meal. Glucose of more than 200 mg/dL in a nonstressed, ambulatory subject supports the diagnosis of Diabetes Mellitus. PERFORMED BY: [address] [place] [address] PATHOLOGIST QUALITY CONTROL ENGINEERING TECHNICIAN JUAN DIEGO CAMACHO M.D. Performed By: #### G LULS #### Point of Care testing , Commemt1 Glu2: Cleaned Meter Normal [facility] Comment on above: Result Comment: PERF ORMED BY: [address] [place] [id number] PATHOLOGIST QUALITY CONTROL ENGINEERING TECHNICIAN JUAN DIEGO CAMACHO M.D. Performed By: #### G LULS #### Point of Care testing , Glucose [Mass/Vol] 92 mg/dL Normal [facility] Comment on above: Result Comment: [place] Glucose Reference Range is dependent on time and content of last meal. Glucose of more than 200 mg/dL in a nonstressed, ambulatory subject supports the diagnosis of Diabetes Mellitus. Performed By: #### G LULS #### Point of Care testing , Glucose Poct Glucometerson 0 07-01-2025 Glucose [Mass/Vol] 133 mg/dL Normal [facility] Comment on above: Result Comment: [place] om Glucose Reference Range is dependent on time and content of last meal. Glucose of more than 200 mg/dL in a nonstressed, ambulatory subject supports the diagnosis of Diabetes Mellitus. PERFORMED BY: [place] [address] PATHOLOGIST QUALITY CONTROL ENGINEERING TECHNICIAN JUAN DIEGO CAMACHO M.D. Performed By: #### G LULS #### Point of Care testing , Commemt1 Glu2: Cleaned Meter Normal [facility] Comment on above: Result Comment: PERF ORMED BY: [address] [place] [address] PATHOLOGIST QUALITY CONTROL ENGINEERING TECHNICIAN JUAN DIEGO CAMACHO M.D. Performed By: #### G LULS #### Point of Care testing , Glucose [Mass/Vol] 94 mg/dL Normal [facility] Comment on above: Result Comment: [place] om Glucose Reference Range is dependent on time and content of last meal. Glucose of more than 200 mg/dL in a nonstressed, ambulatory subject supports the diagnosis of Diabetes Mellitus. Performed By: #### G LULS #### Point of Care testing , Commemt1 Glu2: Cleaned Meter Normal [facility] Comment on above: Result Comment: PERF ORMED BY: [address] [place] [id number] PATHOLOGIST QUALITY CONTROL ENGINEERING TECHNICIAN JUAN DIEGO CAMACHO M.D. Performed By: #### G LULS #### Point of Care testing , Glucose [Mass/Vol] 97 mg/dL Normal [facility] Comment on above: Result Comment: [place] om Glucose Reference Range is dependent on time and content of last meal. Glucose of more than 200 mg/dL in a nonstressed, ambulatory subject supports the diagnosis of Diabetes Mellitus. Performed By: #### G LULS #### Point of Care testing , Commemt1 Glu2: Cleaned Meter Normal [facility] Comment on above: Result Comment: PERF ORMED BY: [place] [address] PATHOLOGIST QUALITY CONTROL ENGINEERING TECHNICIAN JUAN DIEGO CAMACHO M.D. Performed By: #### C UU #### [address] Glucose [Mass/Vol] 90 mg/dL Normal [facility] Comment on above: Result Comment: [place] om Glucose Reference Range is dependent on time and content of last meal. Glucose of more than 200 mg/dL in a nonstressed, ambulatory subject supports the diagnosis of Diabetes Mellitus. Performed By: #### C UU #### [address] Glucose [Mass/Vol] 76 mg/dL Normal [facility] Comment on above: Result Comment: [place] om Glucose Reference Range is dependent on time and content of last meal. Glucose of more than 200 mg/dL in a nonstressed, ambulatory subject supports the diagnosis of Diabetes Mellitus. PERFORMED BY: [place] [address] PATHOLOGIST QUALITY CONTROL ENGINEERING TECHNICIAN JUAN DIEGO CAMACHO M.D. Performed By: #### G LULS #### Point of Care testing , Glucose Poct Glucometerson 0 06-30-2025 Commemt1 Glu2: Cleaned Meter Normal [facility] Comment on above: Result Comment: PERF ORMED BY: [place] [address] PATHOLOGIST QUALITY CONTROL ENGINEERING TECHNICIAN JUAN DIEGO CAMACHO M.D. Performed By: #### G LULS #### Point of Care testing , Glucose [Mass/Vol] 136 mg/dL Normal [facility] Comment on above: Result Comment: [place] om Glucose Reference Range is dependent on time and content of last meal. Glucose of more than 200 mg/dL in a nonstressed, ambulatory subject supports the diagnosis of Diabetes Mellitus. Performed By: #### G LULS #### Point of Care testing , Glucose [Mass/Vol] 100 mg/dL Normal [facility] Comment on above: Result Comment: [place] om Glucose Reference Range is dependent on time and content of last meal. Glucose of more than 200 mg/dL in a nonstressed, ambulatory subject supports the diagnosis of Diabetes Mellitus. PERFORMED BY: [place] [address] PATHOLOGIST QUALITY CONTROL ENGINEERING TECHNICIAN JUAN DIEGO CAMACHO M.D. Performed By: #### G LULS #### Point of Care testing , Commemt1 Glu2: Cleaned Meter Normal [facility] Comment on above: Result Comment: PERF ORMED BY: [place] [address] PATHOLOGIST QUALITY CONTROL ENGINEERING TECHNICIAN JUAN DIEGO CAMACHO M.D. Performed By: #### G LULS #### Point of Care testing , Glucose [Mass/Vol] 100 mg/dL Normal [facility] Comment on above: Result Comment: [place] om Glucose Reference Range is dependent on time and content of last meal. Glucose of more than 200 mg/dL in a nonstressed, ambulatory subject supports the diagnosis of Diabetes Mellitus. Performed By: #### G LULS #### Point of Care testing , Commemt1 Glu2: Cleaned Meter Normal [facility] Comment on above: Result Comment: PERF ORMED BY: [place] [address] PATHOLOGIST QUALITY CONTROL ENGINEERING TECHNICIAN JUAN DIEGO CAMACHO M.D. Performed By: #### C UU #### [address] Glucose [Mass/Vol] 79 mg/dL Normal [facility] Comment on above: Result Comment: [place] om Glucose Reference Range is dependent on time and content of last meal. Glucose of more than 200 mg/dL in a nonstressed, ambulatory subject supports the diagnosis of Diabetes Mellitus. Performed By: #### C UU #### [address] Complete Blood Count Auto Di ffon 06-29-2025 Basophils (Bld) [#/Vol] 0.0 10*3/uL Normal 0.0-0.2 [facility] Comment on above: Result Comment: PERF ORMED BY: [address] [place] [address] PATHOLOGIST QUALITY CONTROL ENGINEERING TECHNICIAN JUAN DIEGO CAMACHO M.D. Performed By: #### C UU #### [address] Basophils/100 WBC (Bld) 0.7 % Normal . [facility] Comment on above: Performed By: #### C UU #### [address] Eosinophils (Bld) [#/Vol] 0.2 10*3/uL Normal 0.0-0.45 [facility] Comment on above: Performed By: #### C UU #### [address] Eosinophils/100 WBC (Bld) 5.2 % Normal . [facility] Comment on above: Performed By: #### C UU #### [address] Erythrocyte distribution width (RBC) [Ratio] 16.0 % High 12.0-14.8 [facility] Comment on above: Performed By: #### C UU #### [address] Hematocrit (Bld) [Volume fraction] 30.4 % Low 38.8-50.0 [facility] Comment on above: Performed By: #### C UU #### [address] Hemoglobin (Bld) [Mass/Vol] 10.1 g/dL Low 13.0-17.0 [facility] Comment on above: Performed By: #### C UU #### [address] Lymphocytes (Bld) [#/Vol] 1.0 10*3/uL Normal 1.00-4.8 [facility] Comment on above: Performed By: #### C UU #### [address] Lymphocytes/100 WBC (Bld) 31.6 % Normal . [facility] Comment on above: Performed By: #### C UU #### [address] MCH (RBC) [Entitic mass] 29.3 pg Normal 27.5-35.2 [facility] Comment on above: Performed By: #### C UU #### [address] MCV (RBC) [Entitic vol] 88.1 fL Normal 83.5-101 [facility] Comment on above: Performed By: #### C UU #### [address] Mean Corpuscular HGB Conc 33.2 g/dL Normal 32.5-35.6 [facility] Comment on above: Performed By: #### C UU #### [address] Monocytes (Bld) [#/Vol] 0.5 10*3/uL Normal 0.0-0.8 [facility] Comment on above: Performed By: #### C UU #### [place] [address] [place] Monocytes/100 WBC (Bld) 16.1 % Normal . [facility] Comment on above: Performed By: #### C UU #### [address] Neutrophils (Bld) [#/Vol] 1.5 10*3/uL Low 1.8-7.7 [facility] Comment on above: Performed By: #### C UU #### [address] Neutrophils/100 WBC (Bld) 46.4 % Normal . [facility] Comment on above: Performed By: #### C UU #### [address] NRBC% 0.4 /100{WBC} Normal 0-0.5 [facility] Comment on above: Performed By: #### C UU #### [address] Platelet mean volume (Bld) [Entitic vol] 10.8 fL High 6.6-10.[address] [facility] Comment on above: Performed By: #### C UU #### [address] Platelets (Bld) [#/Vol] 197 10*3/uL Normal 150-450 [facility] Comment on above: Performed By: #### C UU #### [address] RBC (Bld) [#/Vol] 3.45 10*6/uL Low 3.90-5.60 [facility] Comment on above: Performed By: #### C UU #### [address] WBC (Bld) [#/Vol] 3.1 10*3/uL Low 4.1-10.5 [facility] Comment on above: Performed By: #### C UU #### [address] White Blood Count 3.1 [CFU]/mL Low 4.1-10.5 [facility] Comment on above: Performed By: #### C UU #### [address] Comprehensive Metabolic Pane oscar 06-29-2025 Albumin [Mass/Vol] 3.0 g/dL Low 3.5-5.7 [facility] Comment on above: Performed By: #### C UU #### [address] Albumin/Globulin [Mass ratio] 1.1 {ratio} Normal [facility] Comment on above: Performed By: #### C UU #### [address] ALP [Catalytic activity/Vol] 103 U/L Normal 34-104 [facility] Comment on above: Performed By: #### C UU #### [address] ALT [Catalytic activity/Vol] U/L Low 7-52 [facility] Comment on above: Performed By: #### C UU #### [address] Anion gap [Moles/Vol] 9.9 mmol/L Normal 6.0-15.0 [facility] Comment on above: Performed By: #### C UU #### [address] AST [Catalytic activity/Vol] 7 U/L Low 13-39 [facility] Comment on above: Performed By: #### C UU #### [address] Bilirubin [Mass/Vol] 0.4 mg/dL Normal 0.3-1.0 [facility] Comment on above: Performed By: #### C UU #### [address] Calcium [Mass/Vol] 8.8 mg/dL Normal 8.6-10.3 [facility] Comment on above: Performed By: #### C UU #### [address] Chloride [Moles/Vol] 106 mmol/L Normal 98-107 [facility] Comment on above: Performed By: #### C UU #### [address] CO2 [Moles/Vol] 28.8 mmol/L Normal 21.0-31.0 [facility] Comment on above: Performed By: #### C UU #### [address] Creatinine [Mass/Vol] 0.92 mg/dL Normal 0.70-1.30 [facility] Comment on above: Performed By: #### C UU #### [address] Creatinine Clr Calc Pharmacy 95.36 Normal [facility] Comment on above: Performed By: #### C UU #### [place] [address] [place] GFR/1.73 sq M.predicted MDRD (S/P/Bld) [Vol rate/Area] mL/min/{1.73_m2} Normal [facility] Comment on above: Performed By: #### C UU #### [place] [address] [place] Globulin (S) [Mass/Vol] 2.7 g/dL Normal [facility] Comment on above: Performed By: #### C UU #### [address] Glucose [Mass/Vol] 101 mg/dL High 70-100 [facility] Comment on above: Result Comment: [place] Glucose Reference Range is dependent on time and content of last meal. Glucose of more than 200 mg/dL in a nonstressed, ambulatory subject supports the diagnosis of Diabetes Mellitus. ADA recommended reference range Performed By: #### C UU #### [address] Potassium [Moles/Vol] 3.7 mmol/L Normal 3.5-5.1 [facility] Comment on above: Performed By: #### C UU #### [address] Protein [Mass/Vol] 5.7 g/dL Low 6.4-8.9 [facility] Comment on above: Performed By: #### C UU #### [address] Sodium [Moles/Vol] 141 mmol/L Normal 136-145 [facility] Comment on above: Performed By: #### C UU #### [address] Urea nitrogen [Mass/Vol] 13 mg/dL Normal 7-25 [facility] Comment on above: Performed By: #### C UU #### [place] [address] [place] Glucose Poct Glucometerson 0 06-29-2025 Commemt1 Glu2: Cleaned Meter Normal [facility] Comment on above: Result Comment: PERF ORMED BY: [place] [address] PATHOLOGIST QUALITY CONTROL ENGINEERING TECHNICIAN JUAN DIEGO CAMACHO M.D. Performed By: #### G LULS #### Point of Care testing , Glucose [Mass/Vol] 110 mg/dL Normal [facility] Comment on above: Result Comment: [place] om Glucose Reference Range is dependent on time and content of last meal. Glucose of more than 200 mg/dL in a nonstressed, ambulatory subject supports the diagnosis of Diabetes Mellitus. Performed By: #### G LULS #### Point of Care testing , Glucose [Mass/Vol] 98 mg/dL Normal [facility] Comment on above: Result Comment: [place] om Glucose Reference Range is dependent on time and content of last meal. Glucose of more than 200 mg/dL in a nonstressed, ambulatory subject supports the diagnosis of Diabetes Mellitus. PERFORMED BY: [place] [address] PATHOLOGIST QUALITY CONTROL ENGINEERING TECHNICIAN JUAN DIEGO CAMACHO M.D. Performed By: #### G LULS #### Point of Care testing , Glucose [Mass/Vol] 123 mg/dL Normal [facility] Comment on above: Result Comment: [place] om Glucose Reference Range is dependent on time and content of last meal. Glucose of more than 200 mg/dL in a nonstressed, ambulatory subject supports the diagnosis of Diabetes Mellitus. PERFORMED BY: [place] [address] PATHOLOGIST QUALITY CONTROL ENGINEERING TECHNICIAN JUAN DIEGO CAMACHO M.D. Performed By: #### G LULS #### Point of Care testing , Glucose [Mass/Vol] 105 mg/dL Normal [facility] Comment on above: Result Comment: [place] om Glucose Reference Range is dependent on time and content of last meal. Glucose of more than 200 mg/dL in a nonstressed, ambulatory subject supports the diagnosis of Diabetes Mellitus. PERFORMED BY: [address] [place] [id number] PATHOLOGIST QUALITY CONTROL ENGINEERING TECHNICIAN JUAN DIEGO CAMACHO M.D. Performed By: #### G AMBREEN #### Point of Care testing , Prealbuminon 06-29-2025 Prealbumin [Mass/Vol] 9.7 mg/dL Low 17.0-34.0 [facility] Comment on above: Result Comment: PERF ORMED BY: [facility] [address] [place] [address] PATHOLOGIST QUALITY CONTROL ENGINEERING TECHNICIAN JUAN DIEGO CAMACHO M.D. Performed By: #### C UU #### [address] BASIC METABOLIC PANELon 06-19 Anion gap [Moles/Vol] 7 mmol/L Normal 7-20 [facility] Comment on above: Performed By: #### L [id number] ####[facility] ([facility])[address] [place] [address] Calcium [Mass/Vol] 8.5 mg/dL Low 8.6-10.3 [facility] Comment on above: Performed By: #### L [id number] ####[facility] ([facility])[address] [place] [address] Chloride [Moles/Vol] 107 mmol/L Normal 98-107 [facility] Comment on above: Performed By: #### L [id number] ####[facility] ([facility])[address] [place] [address] CO2 [Moles/Vol] 28 mmol/L Normal 21-31 [facility] Comment on above: Performed By: #### L [id number] ####[facility] ([facility])[address] [place] [address] Creatinine [Mass/Vol] 0.79 mg/dL Normal 0.60-1.30 [facility] Comment on above: Performed By: #### L [id number] ####[facility] ([facility])[address] [place] [address] GLOMERULAR FILTRATION RATE ML/MIN/1.73 SQ M.PREDICTED 82.4 mL/min/1.73m*2 Normal >60.0 [facility] Comment on above: Result Comment: The [facility]???s estimated glomerular filtration rate (eGFR) will no longer include consideration of race in its calculation. The National Kidney Foundation???s eGFR Task Force developed new recommendations for the estimation of the glomerular filtration rate in the [place] They recommend immediate implementation of the new equation refit without the race variable in all laboratories because the calculation does not include race. In addition to not including race in the calculation and reporting, it included diversity in its development, and has acceptable performance characteristics and potential consequences that do not disproportionately affect any one group of individuals. Performed By: #### L [id number] ####[facility] ([facility])[address] [place] [address] Glucose [Mass/Vol] 90 mg/dL Normal 70-100 [facility] Comment on above: Performed By: #### L [id number] ####[facility] ([facility])[address] [place] [address] Potassium [Moles/Vol] 3.3 mmol/L Low 3.5-5.1 [facility] Comment on above: Performed By: #### L [id number] ####[facility] ([facility])[address] [place] [address] Sodium [Moles/Vol] 139 mmol/L Normal 136-145 [facility] Comment on above: Performed By: #### L [id number] ####[facility] ([facility])[address] [place] [address] Urea nitrogen [Mass/Vol] 19 mg/dL Normal 7-25 [facility] Comment on above: Performed By: #### L [id number] ####[facility] ([facility])[address] [place] [address] UREA NITROGEN/CREATININE (MASS RATIO) IN SER/PLAS 24.1 Normal [facility] Comment on above: Performed By: #### L [id number] ####[facility] ([facility])[address] [place] [address] CBC WITH AUTO DIFFERENTIALon 06-28-2025 Basophils (Bld) [#/Vol] 0.02 10*3/uL Normal 0.00-0.20 [facility] Comment on above: Performed By: #### L [id number] ####[facility] ([facility])[address] [place] [address] Basophils/100 WBC (Bld) 0.7 % Normal 0.0-1.0 [facility] Comment on above: Performed By: #### L [id number] ####[facility] ([facility])[address] [place] [address] Eosinophils (Bld) [#/Vol] 0.16 10*3/uL Normal 0.00-0.50 [facility] Comment on above: Performed By: #### L [id number] ####[facility] ([facility])[address] [place] [address] Eosinophils/100 WBC (Bld) 5.6 % Normal 0.0-6.0 [facility] Comment on above: Performed By: #### L [id number] ####[facility] ([facility])[address] [place] [address] Erythrocyte distribution width (RBC) [Ratio] 16.2 % High 11.5-15.0 [facility] Comment on above: Performed By: #### L [id number] ####[facility] ([facility])[address] [place] [address] ERYTHROCYTE MEAN CORPUSCULAR HEMOGLOBIN CONCENTRATION (G/DL) BY AUTOMATED 31.6 g/dL Low 32.0-35.0 [facility] Comment on above: Performed By: #### L [id number] ####[facility] ([facility])[address] [place] [address] Hematocrit (Bld) [Volume fraction] 30.4 % Low 36.0-50.0 [facility] Comment on above: Performed By: #### L [id number] ####[facility] ([facility])[address] [place] [address] Hemoglobin (Bld) [Mass/Vol] 9.6 g/dL Low 12.0-17.0 [facility] Comment on above: Performed By: #### L [id number] ####[facility] ([facility])[address] [place] [address] Immature granulocytes (Bld) [#/Vol] 0.01 10*3/uL Normal 0.00-0.20 [facility] Comment on above: Performed By: #### L [id number] ####[facility] ([facility])[address] [place] [address] Immature granulocytes/100 WBC (Bld) 0.3 % Normal 0.0-1.0 [facility] Comment on above: Performed By: #### L [id number] ####[facility] ([facility])[address] [place] [address] Lymphocytes (Bld) [#/Vol] 0.98 10*3/uL Low 1.20-4.00 [facility] Comment on above: Performed By: #### L [id number] ####[facility] ([facility])[address] [place] [address] Lymphocytes/100 WBC (Bld) 34.3 % Normal 20.0-45.0 [facility] Comment on above: Performed By: #### L [id number] ####[facility] ([facility])[address] [place] [address] MCH (RBC) [Entitic mass] 29.2 pg Normal 27.0-33.0 [facility] Comment on above: Performed By: #### L [id number] ####[facility] ([facility])[address] [place] [address] MCV (RBC) [Entitic vol] 92.4 fL Normal 82.0-98.0 [facility] Comment on above: Performed By: #### L [id number] ####[facility] ([facility])[address] [place] [address] Monocytes (Bld) [#/Vol] 0.40 10*3/uL Normal 0.10-1.00 [facility] Comment on above: Performed By: #### L [id number] ####[facility] ([facility])[address] [place] [address] Monocytes/100 WBC (Bld) 14.0 % High 5.0-12.0 [facility] Comment on above: Performed By: #### L [id number] ####[facility] ([facility])[address] [place] [address] Neutrophils (Bld) [#/Vol] 1.29 10*3/uL Low 1.60-7.60 [facility] Comment on above: Performed By: #### L [id number] ####[facility] ([facility])[address] [place] [address] Neutrophils/100 WBC (Bld) 45.1 % Normal 40.0-72.0 [facility] Comment on above: Performed By: #### L [id number] ####[facility] ([facility])[address] [place] [address] NRBC (PER 100 WBCS) BY AUTOMATED COUNT 0.0 % Normal 0 [facility] Comment on above: Performed By: #### L [id number] ####[facility] ([facility])[address] [place] [address] PLATELETS (10*3/UL) IN BLOOD AUTOMATED COUNT 250 10*3/uL Normal 150-400 [facility] Comment on above: Performed By: #### L [id number] ####[facility] ([facility])[address] [place] [address] RBC (Bld) [#/Vol] 3.29 10*6/uL Low 3.80-5.70 [facility] Comment on above: Performed By: #### L [id number] ####[facility] ([facility])[address] [place] [address] WBC (Bld) [#/Vol] 2.86 10*3/uL Low 4.00-10.60 [facility] Comment on above: Performed By: #### L [id number] ####[facility] ([facility])[address] [place] [address] DSon 06-28-2025 DS Normal [facility] Glucose Poct Glucometerson 0 06-28-2025 Glucose [Mass/Vol] 142 mg/dL Normal [facility] Comment on above: Result Comment: [place] Glucose Reference Range is dependent on time and content of last meal. Glucose of more than 200 mg/dL in a nonstressed, ambulatory subject supports the diagnosis of Diabetes Mellitus. PERFORMED BY: [facility] [address] [place] [address] PATHOLOGIST QUALITY CONTROL ENGINEERING TECHNICIAN JUAN DIEGO CAMACHO M.D. Performed By: #### G AMBREEN #### Point of Care testing , MAGNESIUMon 06-28-2025 Magnesium [Mass/Vol] 2.1 mg/dL Normal 1.9-2.7 [facility] Comment on above: Performed By: #### L [id number] ####[facility] ([facility])[address] [place] [address] NURSNOTEon 06-28-2025 NURSNOTE Report given to EMT with [facility]. Transport via stretcher to [facility]. Report called to charge nurse at [phone]. IV's to Left forearm left in place per Dr. Whitley, d/t pt continuing IV antibiotics. Normal [facility] PHOSPHORUSon 06-28-2025 Magnesium [Mass/Vol] 2.5 mg/dL Normal 2.5-5.0 [facility] Comment on above: Performed By: #### L [id number] ####[facility] ([facility])[address] [place] [address] POCT GLUCOSE METER UNSOLICIT ED RESULTSon 06-28-2025 Glucose [Mass/Vol] 100 mg/dL Normal 70-105 [facility] Comment on above: Order Comment: Waive d Testing in the ED is performed under the ED CLIA certificate #[id number]. Result Comment: bronson rico Performed By: #### L [id number] ####[facility] ([facility])[address] [place] [address] Glucose [Mass/Vol] 87 mg/dL Normal 70-105 [facility] Comment on above: Order Comment: Waive d Testing in the ED is performed under the ED CLIA certificate #[id number]. Result Comment: [email or web address] er2 Performed By: #### L [id number] ####[facility] ([facility])[address] [place] [address] 30on 06-27-2025 30 Normal [facility] BASIC METABOLIC PANELon Anion gap [Moles/Vol] 8 mmol/L Normal 7-20 [facility] Comment on above: Performed By: #### L [id number] ####[facility] ([facility])[address] [place] [address] Calcium [Mass/Vol] 8.4 mg/dL Low 8.6-10.3 [facility] Comment on above: Performed By: #### L [id number] ####[facility] ([facility])[address] [place] [address] Chloride [Moles/Vol] 107 mmol/L Normal 98-107 [facility] Comment on above: Performed By: #### L [id number] ####[facility] ([facility])[address] [place] [address] CO2 [Moles/Vol] 27 mmol/L Normal 21-31 [facility] Comment on above: Performed By: #### L [id number] ####[facility] ([facility])[address] [place] [address] Creatinine [Mass/Vol] 0.82 mg/dL Normal 0.60-1.30 [facility] Comment on above: Performed By: #### L [id number] ####[facility] ([facility])[address] [place] [address] GLOMERULAR FILTRATION RATE ML/MIN/1.73 SQ M.PREDICTED 78.8 mL/min/1.73m*2 Normal >60.0 [facility] Comment on above: Result Comment: The [facility]???s estimated glomerular filtration rate (eGFR) will no longer include consideration of race in its calculation. The National Kidney Foundation???s eGFR Task Force developed new recommendations for the estimation of the glomerular filtration rate in the [place] They recommend immediate implementation of the new equation refit without the race variable in all laboratories because the calculation does not include race. In addition to not including race in the calculation and reporting, it included diversity in its development, and has acceptable performance characteristics and potential consequences that do not disproportionately affect any one group of individuals. Performed By: #### L [id number] ####[facility] ([facility])[address] [place] [address] Glucose [Mass/Vol] 86 mg/dL Normal 70-100 [facility] Comment on above: Performed By: #### L [id number] ####[facility] ([facility])[address] [place] [address] Potassium [Moles/Vol] 3.4 mmol/L Low 3.5-5.1 [facility] Comment on above: Performed By: #### L [id number] ####[facility] ([facility])[address] [place] [address] Sodium [Moles/Vol] 139 mmol/L Normal 136-145 [facility] Comment on above: Performed By: #### L [id number] ####[facility] ([facility])[address] [place] [address] Urea nitrogen [Mass/Vol] 17 mg/dL Normal 7-25 [facility] Comment on above: Performed By: #### L [id number] ####[facility] ([facility])[address] [place] [address] UREA NITROGEN/CREATININE (MASS RATIO) IN SER/PLAS 20.7 Normal [facility] Comment on above: Performed By: #### L [id number] ####[facility] ([facility])[address] [place] [address] CBC WITH AUTO DIFFERENTIALon 06-27-2025 Basophils (Bld) [#/Vol] 0.01 10*3/uL Normal 0.00-0.20 [facility] Comment on above: Performed By: #### L [id number] ####[facility] ([facility])[address] [place] [address] Basophils/100 WBC (Bld) 0.3 % Normal 0.0-1.0 [facility] Comment on above: Performed By: #### L [id number] ####[facility] ([facility])[address] [place] [address] Eosinophils (Bld) [#/Vol] 0.17 10*3/uL Normal 0.00-0.50 [facility] Comment on above: Performed By: #### L [id number] ####[facility] ([facility])[address] [place] [address] Eosinophils/100 WBC (Bld) 5.5 % Normal 0.0-6.0 [facility] Comment on above: Performed By: #### L [id number] ####[facility] ([facility])[address] [place] [address] Erythrocyte distribution width (RBC) [Ratio] 16.0 % High 11.5-15.0 [facility] Comment on above: Performed By: #### L [id number] ####[facility] ([facility])[address] [place] [address] ERYTHROCYTE MEAN CORPUSCULAR HEMOGLOBIN CONCENTRATION (G/DL) BY AUTOMATED 31.5 g/dL Low 32.0-35.0 [facility] Comment on above: Performed By: #### L [id number] ####[facility] ([facility])[address] [place] [address] Hematocrit (Bld) [Volume fraction] 30.2 % Low 36.0-50.0 [facility] Comment on above: Performed By: #### L [id number] ####[facility] ([facility])[address] [place] [address] Hemoglobin (Bld) [Mass/Vol] 9.5 g/dL Low 12.0-17.0 [facility] Comment on above: Performed By: #### L [id number] ####[facility] ([facility])[address] [place] [address] Immature granulocytes (Bld) [#/Vol] 0.01 10*3/uL Normal 0.00-0.20 [facility] Comment on above: Performed By: #### L [id number] ####[facility] ([facility])[address] [place] [address] Immature granulocytes/100 WBC (Bld) 0.3 % Normal 0.0-1.0 [facility] Comment on above: Performed By: #### L [id number] ####[facility] ([facility])[address] [place] [address] Lymphocytes (Bld) [#/Vol] 0.88 10*3/uL Low 1.20-4.00 [facility] Comment on above: Performed By: #### L [id number] ####[facility] ([facility])[address] [place] [address] Lymphocytes/100 WBC (Bld) 28.6 % Normal 20.0-45.0 [facility] Comment on above: Performed By: #### L [id number] ####[facility] ([facility])[address] [place] [address] MCH (RBC) [Entitic mass] 29.1 pg Normal 27.0-33.0 [facility] Comment on above: Performed By: #### L [id number] ####[facility] ([facility])[address] [place] [address] MCV (RBC) [Entitic vol] 92.6 fL Normal 82.0-98.0 [facility] Comment on above: Performed By: #### L [id number] ####[facility] ([facility])[address] [place] [address] Monocytes (Bld) [#/Vol] 0.45 10*3/uL Normal 0.10-1.00 [facility] Comment on above: Performed By: #### L [id number] ####[facility] ([facility])[address] [place] [address] Monocytes/100 WBC (Bld) 14.6 % High 5.0-12.0 [facility] Comment on above: Performed By: #### L [id number] ####[facility] ([facility])[address] [place] [address] Neutrophils (Bld) [#/Vol] 1.56 10*3/uL Low 1.60-7.60 [facility] Comment on above: Performed By: #### L [id number] ####[facility] ([facility])[address] [place] [address] Neutrophils/100 WBC (Bld) 50.7 % Normal 40.0-72.0 [facility] Comment on above: Performed By: #### L [id number] ####[facility] ([facility])[address] [place] [address] NRBC (PER 100 WBCS) BY AUTOMATED COUNT 0.0 % Normal 0 [facility] Comment on above: Performed By: #### L [id number] ####[facility] ([facility])[address] [place] [address] PLATELETS (10*3/UL) IN BLOOD AUTOMATED COUNT 262 10*3/uL Normal 150-400 [facility] Comment on above: Performed By: #### L [id number] ####[facility] ([facility])[address] [place] [address] RBC (Bld) [#/Vol] 3.26 10*6/uL Low 3.80-5.70 [facility] Comment on above: Performed By: #### L [id number] ####[facility] ([facility])[address] [address] WBC (Bld) [#/Vol] 3.08 10*3/uL Low 4.00-10.60 [facility] Comment on above: Performed By: #### L [id number] ####[facility] ([facility])[address] [place] [address] MAGNESIUMon 06-27-2025 Magnesium [Mass/Vol] 2.1 mg/dL Normal 1.9-2.7 [facility] Comment on above: Performed By: #### L [id number] ####[facility] ([facility])[address] [place] [address] PHOSPHORUSon 06-27-2025 Magnesium [Mass/Vol] 2.4 mg/dL Low 2.5-5.0 [facility] Comment on above: Performed By: #### L [id number] ####[facility] ([facility])[address] [place] [address] POCT GLUCOSE METER UNSOLICIT ED RESULTSon 06-27-2025 Glucose [Mass/Vol] 146 mg/dL High 70-105 [facility] Comment on above: Order Comment: Waive d Testing in the ED is performed under the ED CLIA certificate #[id number]. Result Comment: swey [id number] Value Noted Performed By: #### L [id number] ####[facility] ([facility])[address] [place] [address] Glucose [Mass/Vol] 138 mg/dL High 70-105 [facility] Comment on above: Order Comment: Waive d Testing in the ED is performed under the ED CLIA certificate #[id number]. Result Comment: [email or web address] [email or web address] Performed By: #### L [id number] ####[facility] ([facility])[address] [place] [address] Glucose [Mass/Vol] 111 mg/dL High 70-105 [facility] Comment on above: Order Comment: Waive d Testing in the ED is performed under the ED CLIA certificate #[id number]. Result Comment: boaz [email or web address] Performed By: #### L [id number] ####[facility] ([facility])[address] [place] [address] Glucose [Mass/Vol] 85 mg/dL Normal 70-105 [facility] Comment on above: Order Comment: Waive d Testing in the ED is performed under the ED CLIA certificate #[id number]. Result Comment: [email or web address] ral Performed By: #### L [id number] ####[facility] ([facility])[address] [place] [address] Glucose [Mass/Vol] 66 mg/dL Low 70-105 [facility] Comment on above: Order Comment: Waive d Testing in the ED is performed under the ED CLIA certificate #[id number]. Result Comment: [email or web address] er2 Performed By: #### L [id number] ####[facility] ([facility])[address] [place] [address] 30on 06-26-2025 30 Normal [facility] BASIC METABOLIC PANELon Anion gap [Moles/Vol] 7 mmol/L Normal 7-20 [facility] Comment on above: Performed By: #### L [id number] ####[facility] ([facility])[address] [place] [address] Calcium [Mass/Vol] 8.1 mg/dL Low 8.6-10.3 [facility] Comment on above: Performed By: #### L [id number] ####[facility] ([facility])[address] [place] [address] Chloride [Moles/Vol] 110 mmol/L High 98-107 [facility] Comment on above: Performed By: #### L [id number] ####[facility] ([facility])[address] [place] [address] CO2 [Moles/Vol] 27 mmol/L Normal 21-31 [facility] Comment on above: Performed By: #### L [id number] ####[facility] ([facility])[address] [place] [address] Creatinine [Mass/Vol] 0.84 mg/dL Normal 0.60-1.30 [facility] Comment on above: Performed By: #### L [id number] ####[facility] ([facility])[address] [place] [address] GLOMERULAR FILTRATION RATE ML/MIN/1.73 SQ M.PREDICTED 76.6 mL/min/1.73m*2 Normal >60.0 [facility] Comment on above: Result Comment: The [facility]???s estimated glomerular filtration rate (eGFR) will no longer include consideration of race in its calculation. The National Kidney Foundation???s eGFR Task Force developed new recommendations for the estimation of the glomerular filtration rate in the [place] They recommend immediate implementation of the new equation refit without the race variable in all laboratories because the calculation does not include race. In addition to not including race in the calculation and reporting, it included diversity in its development, and has acceptable performance characteristics and potential consequences that do not disproportionately affect any one group of individuals. Performed By: #### L [id number] ####[facility] ([facility])[address] [place] [address] Glucose [Mass/Vol] 82 mg/dL Normal 70-100 [facility] Comment on above: Performed By: #### L [id number] ####[facility] ([facility])[address] [place] [address] Potassium [Moles/Vol] 3.5 mmol/L Normal 3.5-5.1 [facility] Comment on above: Performed By: #### L [id number] ####[facility] ([facility])[address] [place] [address] Sodium [Moles/Vol] 140 mmol/L Normal 136-145 [facility] Comment on above: Performed By: #### L [id number] ####[facility] ([facility])[address] [place] [address] Urea nitrogen [Mass/Vol] 23 mg/dL Normal 7-25 [facility] Comment on above: Performed By: #### L [id number] ####[facility] ([facility])[address] [place] [address] UREA NITROGEN/CREATININE (MASS RATIO) IN SER/PLAS 27.4 Normal [facility] Comment on above: Performed By: #### L [id number] ####[facility] ([facility])[address] [place] [address] CBC WITH AUTO DIFFERENTIALon 06-26-2025 Basophils (Bld) [#/Vol] 0.01 10*3/uL Normal 0.00-0.20 [facility] Comment on above: Performed By: #### L [id number] ####[facility] ([facility])[address] [place] [address] Basophils/100 WBC (Bld) 0.3 % Normal 0.0-1.0 [facility] Comment on above: Performed By: #### L [id number] ####[facility] ([facility])[address] [place] [address] Eosinophils (Bld) [#/Vol] 0.17 10*3/uL Normal 0.00-0.50 [facility] Comment on above: Performed By: #### L [id number] ####[facility] ([facility])[address] [place] [address] Eosinophils/100 WBC (Bld) 5.9 % Normal 0.0-6.0 [facility] Comment on above: Performed By: #### L [id number] ####[facility] ([facility])[address] [place] [address] Erythrocyte distribution width (RBC) [Ratio] 16.4 % High 11.5-15.0 [facility] Comment on above: Performed By: #### L [id number] ####[facility] ([facility])[address] [place] [address] ERYTHROCYTE MEAN CORPUSCULAR HEMOGLOBIN CONCENTRATION (G/DL) BY AUTOMATED 30.8 g/dL Low 32.0-35.0 [facility] Comment on above: Performed By: #### L [id number] ####[facility] ([facility])[address] [place] [address] Hematocrit (Bld) [Volume fraction] 28.9 % Low 36.0-50.0 [facility] Comment on above: Performed By: #### L [id number] ####[facility] ([facility])[address] [place] [address] Hemoglobin (Bld) [Mass/Vol] 8.9 g/dL Low 12.0-17.0 [facility] Comment on above: Performed By: #### L [id number] ####[facility] ([facility])[address] [place] [address] Immature granulocytes (Bld) [#/Vol] 0.01 10*3/uL Normal 0.00-0.20 [facility] Comment on above: Performed By: #### L [id number] ####[facility] ([facility])[address] [place] [address] Immature granulocytes/100 WBC (Bld) 0.3 % Normal 0.0-1.0 [facility] Comment on above: Performed By: #### L [id number] ####[facility] ([facility])[address] [place] [address] Lymphocytes (Bld) [#/Vol] 0.99 10*3/uL Low 1.20-4.00 [facility] Comment on above: Performed By: #### L [id number] ####[facility] ([facility])[address] [place] [address] Lymphocytes/100 WBC (Bld) 34.3 % Normal 20.0-45.0 [facility] Comment on above: Performed By: #### L [id number] ####[facility] ([facility])[address] [place] [address] MCH (RBC) [Entitic mass] 28.4 pg Normal 27.0-33.0 [facility] Comment on above: Performed By: #### L [id number] ####[facility] ([facility])[address] [place] [address] MCV (RBC) [Entitic vol] 92.3 fL Normal 82.0-98.0 [facility] Comment on above: Performed By: #### L [id number] ####[facility] ([facility])[address] [place] [address] Monocytes (Bld) [#/Vol] 0.48 10*3/uL Normal 0.10-1.00 [facility] Comment on above: Performed By: #### L [id number] ####[facility] ([facility])[address] [place] [address] Monocytes/100 WBC (Bld) 16.6 % High 5.0-12.0 [facility] Comment on above: Performed By: #### L [id number] ####[facility] ([facility])[address] [place] [address] Neutrophils (Bld) [#/Vol] 1.23 10*3/uL Low 1.60-7.60 [facility] Comment on above: Performed By: #### L [id number] ####[facility] ([facility])[address] [place] [address] Neutrophils/100 WBC (Bld) 42.6 % Normal 40.0-72.0 [facility] Comment on above: Performed By: #### L [id number] ####[facility] ([facility])[address] [place] [address] NRBC (PER 100 WBCS) BY AUTOMATED COUNT 0.0 % Normal 0 [facility] Comment on above: Performed By: #### L [id number] ####[facility] ([facility])[address] [place] [address] PLATELETS (10*3/UL) IN BLOOD AUTOMATED COUNT 243 10*3/uL Normal 150-400 [facility] Comment on above: Performed By: #### L [id number] ####[facility] ([facility])[address] [place] [address] RBC (Bld) [#/Vol] 3.13 10*6/uL Low 3.80-5.70 [facility] Comment on above: Performed By: #### L [id number] ####[facility] ([facility])[address] [place] [address] WBC (Bld) [#/Vol] 2.89 10*3/uL Low 4.00-10.60 [facility] Comment on above: Performed By: #### L [id number] ####[facility] ([facility])[address] [place] [address] MAGNESIUMon 06-26-2025 Magnesium [Mass/Vol] 2.1 mg/dL Normal 1.9-2.7 [facility] Comment on above: Performed By: #### L [id number] ####[facility] ([facility])[address] [place] [address] PHOSPHORUSon 06-26-2025 Magnesium [Mass/Vol] 2.7 mg/dL Normal 2.5-5.0 [facility] Comment on above: Performed By: #### L [id number] ####[facility] ([facility])[address] [place] [address] POCT GLUCOSE METER UNSOLICIT ED RESULTSon 06-26-2025 Glucose [Mass/Vol] 105 mg/dL Normal 70-105 [facility] Comment on above: Order Comment: Waive d Testing in the ED is performed under the ED CLIA certificate #[id number]. Result Comment: [email or web address] [id number] Value Noted Performed By: #### L [id number] ####[facility] ([facility])[address] [place] [address] Glucose [Mass/Vol] 107 mg/dL High 70-105 [facility] Comment on above: Order Comment: Waive d Testing in the ED is performed under the ED CLIA certificate #[id number]. Result Comment: [email or web address] [email or web address] Performed By: #### L [id number] ####[facility] ([facility])[address] [place] [address] Glucose [Mass/Vol] 92 mg/dL Normal 70-105 [facility] Comment on above: Order Comment: Waive d Testing in the ED is performed under the ED CLIA certificate #[id number]. Result Comment: [email or web address] [email or web address] Performed By: #### L [id number] ####[facility] ([facility])[address] [place] [address] Glucose [Mass/Vol] 85 mg/dL Normal 70-105 [facility] Comment on above: Order Comment: Waive d Testing in the ED is performed under the ED CLIA certificate #[id number]. Result Comment: [email or web address] Performed By: #### L [id number] ####[facility] ([facility])[address] [place] [address] 30on 06-25-2025 30 Normal [facility] 30 [facility] BASIC METABOLIC PANELon Anion gap [Moles/Vol] 11 mmol/L Normal 7-20 [facility] Comment on above: Performed By: #### L [id number] ####[facility] ([facility])[address] [place] [address] Calcium [Mass/Vol] 8.2 mg/dL Low 8.6-10.3 [facility] Comment on above: Performed By: #### L [id number] ####[facility] ([facility])[address] [place] [address] Chloride [Moles/Vol] 109 mmol/L High 98-107 [facility] Comment on above: Performed By: #### L [id number] ####[facility] ([facility])[address] [place] [address] CO2 [Moles/Vol] 24 mmol/L Normal 21-31 [facility] Comment on above: Performed By: #### L [id number] ####[facility] ([facility])[address] [place] [address] Creatinine [Mass/Vol] 0.72 mg/dL Normal 0.60-1.30 [facility] Comment on above: Performed By: #### L [id number] ####[facility] ([facility])[address] [place] [address] GLOMERULAR FILTRATION RATE ML/MIN/1.73 SQ M.PREDICTED 92.2 mL/min/1.73m*2 Normal >60.0 [facility] Comment on above: Result Comment: The [facility]???s estimated glomerular filtration rate (eGFR) will no longer include consideration of race in its calculation. The National Kidney Foundation???s eGFR Task Force developed new recommendations for the estimation of the glomerular filtration rate in the [place] They recommend immediate implementation of the new equation refit without the race variable in all laboratories because the calculation does not include race. In addition to not including race in the calculation and reporting, it included diversity in its development, and has acceptable performance characteristics and potential consequences that do not disproportionately affect any one group of individuals. Performed By: #### L [id number] ####[facility] ([facility])[address] [place] [address] Glucose [Mass/Vol] 78 mg/dL Normal 70-100 [facility] Comment on above: Performed By: #### L [id number] ####[facility] ([facility])[address] [place] [address] Potassium [Moles/Vol] 3.7 mmol/L Normal 3.5-5.1 [facility] Comment on above: Performed By: #### L [id number] ####[facility] ([facility])[address] [place] [address] Sodium [Moles/Vol] 140 mmol/L Normal 136-145 [facility] Comment on above: Performed By: #### L [id number] ####[facility] ([facility])[address] [place] [address] Urea nitrogen [Mass/Vol] 23 mg/dL Normal 7-25 [facility] Comment on above: Performed By: #### L [id number] ####[facility] ([facility])[address] [place] [address] UREA NITROGEN/CREATININE (MASS RATIO) IN SER/PLAS 31.9 Normal [facility] Comment on above: Performed By: #### L [id number] ####[facility] ([facility])[address] [place] [address] CBC WITH AUTO DIFFERENTIALon 06-25-2025 Basophils (Bld) [#/Vol] 0.02 10*3/uL Normal 0.00-0.20 [facility] Comment on above: Performed By: #### L [id number] ####[facility] ([facility])[address] [place] [address] Basophils/100 WBC (Bld) 0.6 % Normal 0.0-1.0 [facility] Comment on above: Performed By: #### L [id number] ####[facility] ([facility])[address] [place] [address] Eosinophils (Bld) [#/Vol] 0.20 10*3/uL Normal 0.00-0.50 [facility] Comment on above: Performed By: #### L [id number] ####[facility] ([facility])[address] [place] [address] Eosinophils/100 WBC (Bld) 5.8 % Normal 0.0-6.0 [facility] Comment on above: Performed By: #### L [id number] ####[facility] ([facility])[address] [place] [address] Erythrocyte distribution width (RBC) [Ratio] 16.3 % High 11.5-15.0 [facility] Comment on above: Performed By: #### L [id number] ####[facility] ([facility])[address] [place] [address] ERYTHROCYTE MEAN CORPUSCULAR HEMOGLOBIN CONCENTRATION (G/DL) BY AUTOMATED 31.5 g/dL Low 32.0-35.0 [facility] Comment on above: Performed By: #### L [id number] ####[facility] ([facility])[address] [place] [address] Hematocrit (Bld) [Volume fraction] 29.5 % Low 36.0-50.0 [facility] Comment on above: Performed By: #### L [id number] ####[facility] ([facility])[address] [place] [address] Hemoglobin (Bld) [Mass/Vol] 9.3 g/dL Low 12.0-17.0 [facility] Comment on above: Performed By: #### L [id number] ####[facility] ([facility])[address] [place] [address] Immature granulocytes (Bld) [#/Vol] 0.02 10*3/uL Normal 0.00-0.20 [facility] Comment on above: Performed By: #### L [id number] ####[facility] ([facility])[address] [place] [address] Immature granulocytes/100 WBC (Bld) 0.6 % Normal 0.0-1.0 [facility] Comment on above: Performed By: #### L [id number] ####[facility] ([facility])[address] [place] [address] Lymphocytes (Bld) [#/Vol] 1.02 10*3/uL Low 1.20-4.00 [facility] Comment on above: Performed By: #### L [id number] ####[facility] ([facility])[address] [place] [address] Lymphocytes/100 WBC (Bld) 29.5 % Normal 20.0-45.0 [facility] Comment on above: Performed By: #### L [id number] ####[facility] ([facility])[address] [place] [address] MCH (RBC) [Entitic mass] 29.2 pg Normal 27.0-33.0 [facility] Comment on above: Performed By: #### L [id number] ####[facility] ([facility])[address] [place] [address] MCV (RBC) [Entitic vol] 92.8 fL Normal 82.0-98.0 [facility] Comment on above: Performed By: #### L [id number] ####[facility] ([facility])[address] [place] [address] Monocytes (Bld) [#/Vol] 0.54 10*3/uL Normal 0.10-1.00 [facility] Comment on above: Performed By: #### L [id number] ####[facility] ([facility])[address] [place] [address] Monocytes/100 WBC (Bld) 15.6 % High 5.0-12.0 [facility] Comment on above: Performed By: #### L [id number] ####[facility] ([facility])[address] [address] Neutrophils (Bld) [#/Vol] 1.66 10*3/uL Normal 1.60-7.60 [facility] Comment on above: Performed By: #### L [id number] ####[facility] ([facility])[address] [address] Neutrophils/100 WBC (Bld) 47.9 % Normal 40.0-72.0 [facility] Comment on above: Performed By: #### L [id number] ####[facility] ([facility])[address] [address] NRBC (PER 100 WBCS) BY AUTOMATED COUNT 0.0 % Normal 0 [facility] Comment on above: Performed By: #### L [id number] ####[facility] ([facility])[address] [address] PLATELETS (10*3/UL) IN BLOOD AUTOMATED COUNT 259 10*3/uL Normal 150-400 [facility] Comment on above: Performed By: #### L [id number] ####[facility] ([facility])[address] [address] RBC (Bld) [#/Vol] 3.18 10*6/uL Low 3.80-5.70 [facility] Comment on above: Performed By: #### L [id number] ####[facility] ([facility])[address] [address] WBC (Bld) [#/Vol] 3.46 10*3/uL Low 4.00-10.60 [facility] Comment on above: Performed By: #### L [id number] ####[facility] ([facility])[address] [place] [address] MAGNESIUMon 06-25-2025 Magnesium [Mass/Vol] 2.1 mg/dL Normal 1.9-2.7 [facility] Comment on above: Performed By: #### L [id number] ####[facility] ([facility])[address] [place] [address] PHOSPHORUSon 06-25-2025 Magnesium [Mass/Vol] 2.6 mg/dL Normal 2.5-5.0 [facility] Comment on above: Performed By: #### L [id number] ####[facility] ([facility])[address] [place] [address] POCT GLUCOSE METER UNSOLICIT ED RESULTSon 06-25-2025 Glucose [Mass/Vol] 118 mg/dL High 70-105 [facility] Comment on above: Order Comment: Waive d Testing in the ED is performed under the ED CLIA certificate #[id number]. Result Comment: [email or web address] Performed By: #### L [id number] ####[facility] ([facility])[address] [place] [address] Glucose [Mass/Vol] 112 mg/dL High 70-105 [facility] Comment on above: Order Comment: Waive d Testing in the ED is performed under the ED CLIA certificate #[id number]. Result Comment: [email or web address] Performed By: #### L [id number] ####[facility] ([facility])[address] [place] [address] Glucose [Mass/Vol] 99 mg/dL Normal 70-105 [facility] Comment on above: Order Comment: Waive d Testing in the ED is performed under the ED CLIA certificate #[id number]. Result Comment: [email or web address] Performed By: #### L [id number] ####[facility] ([facility])[address] [place] [address] Glucose [Mass/Vol] 111 mg/dL High 70-105 [facility] Comment on above: Order Comment: Waive d Testing in the ED is performed under the ED CLIA certificate #[id number]. Result Comment: [email or web address] Performed By: #### L [id number] ####[facility] ([facility])[address] [place] [address] Glucose [Mass/Vol] 89 mg/dL Normal 70-105 [facility] Comment on above: Order Comment: Waive d Testing in the ED is performed under the ED CLIA certificate #[id number]. Result Comment: [email or web address] Performed By: #### L [id number] ####[facility] ([facility])[address] [place] [address] 30on 06-24-2025 30 [facility] 30 [facility] BASIC METABOLIC PANELon Anion gap [Moles/Vol] 4 mmol/L Low 7-20 [facility] Comment on above: Performed By: #### L [id number] ####[facility] ([facility])[address] [place] [address] Calcium [Mass/Vol] 8.0 mg/dL Low 8.6-10.3 [facility] Comment on above: Performed By: #### L [id number] ####[facility] ([facility])[address] [place] [address] Chloride [Moles/Vol] 113 mmol/L High 98-107 [facility] Comment on above: Performed By: #### L [id number] ####[facility] ([facility])[address] [place] [address] CO2 [Moles/Vol] 25 mmol/L Normal 21-31 [facility] Comment on above: Performed By: #### L [id number] ####[facility] ([facility])[address] [place] [address] Creatinine [Mass/Vol] 0.65 mg/dL Normal 0.60-1.30 [facility] Comment on above: Performed By: #### L [id number] ####[facility] ([facility])[address] [place] [address] GLOMERULAR FILTRATION RATE ML/MIN/1.73 SQ M.PREDICTED 97.0 mL/min/1.73m*2 Normal >60.0 [facility] Comment on above: Result Comment: The [facility]???s estimated glomerular filtration rate (eGFR) will no longer include consideration of race in its calculation. The National Kidney Foundation???s eGFR Task Force developed new recommendations for the estimation of the glomerular filtration rate in the [place] They recommend immediate implementation of the new equation refit without the race variable in all laboratories because the calculation does not include race. In addition to not including race in the calculation and reporting, it included diversity in its development, and has acceptable performance characteristics and potential consequences that do not disproportionately affect any one group of individuals. Performed By: #### L [id number] ####[facility] ([facility])[address] [place] [address] Glucose [Mass/Vol] 101 mg/dL High 70-100 [facility] Comment on above: Performed By: #### L [id number] ####[facility] ([facility])[address] [place] [address] Potassium [Moles/Vol] 3.8 mmol/L Normal 3.5-5.1 [facility] Comment on above: Performed By: #### L [id number] ####[facility] ([facility])[address] [place] [address] Sodium [Moles/Vol] 138 mmol/L Normal 136-145 [facility] Comment on above: Performed By: #### L [id number] ####[facility] ([facility])[address] [place] [address] Urea nitrogen [Mass/Vol] 21 mg/dL Normal 7-25 [facility] Comment on above: Performed By: #### L [id number] ####[facility] ([facility])[address] [place] [address] UREA NITROGEN/CREATININE (MASS RATIO) IN SER/PLAS 32.3 Normal [facility] Comment on above: Performed By: #### L [id number] ####[facility] ([facility])[address] [place] [address] CBC WITH AUTO DIFFERENTIALon 06-24-2025 Basophils (Bld) [#/Vol] 0.02 10*3/uL Normal 0.00-0.20 [facility] Comment on above: Performed By: #### L [id number] ####[facility] ([facility])[address] [place] [address] Basophils/100 WBC (Bld) 0.6 % Normal 0.0-1.0 [facility] Comment on above: Performed By: #### L [id number] ####[facility] ([facility])[address] [place] [address] Eosinophils (Bld) [#/Vol] 0.17 10*3/uL Normal 0.00-0.50 [facility] Comment on above: Performed By: #### L [id number] ####[facility] ([facility])[address] [place] [address] Eosinophils/100 WBC (Bld) 5.1 % Normal 0.0-6.0 [facility] Comment on above: Performed By: #### L [id number] ####[facility] ([facility])[address] [place] [address] Erythrocyte distribution width (RBC) [Ratio] 16.2 % High 11.5-15.0 [facility] Comment on above: Performed By: #### L [id number] ####[facility] ([facility])[address] [place] [address] ERYTHROCYTE MEAN CORPUSCULAR HEMOGLOBIN CONCENTRATION (G/DL) BY AUTOMATED 32.6 g/dL Normal 32.0-35.0 [facility] Comment on above: Performed By: #### L [id number] ####[facility] ([facility])[address] [place] [address] Hematocrit (Bld) [Volume fraction] 27.9 % Low 36.0-50.0 [facility] Comment on above: Performed By: #### L [id number] ####[facility] ([facility])[address] [place] [address] Hemoglobin (Bld) [Mass/Vol] 9.1 g/dL Low 12.0-17.0 [facility] Comment on above: Performed By: #### L [id number] ####[facility] ([facility])[address] [place] [address] Immature granulocytes (Bld) [#/Vol] 0.01 10*3/uL Normal 0.00-0.20 [facility] Comment on above: Performed By: #### L [id number] ####[facility] ([facility])[address] [place] [address] Immature granulocytes/100 WBC (Bld) 0.3 % Normal 0.0-1.0 [facility] Comment on above: Performed By: #### L [id number] ####[facility] ([facility])[address] [place] [address] Lymphocytes (Bld) [#/Vol] 0.70 10*3/uL Low 1.20-4.00 [facility] Comment on above: Performed By: #### L [id number] ####[facility] ([facility])[address] [place] [address] Lymphocytes/100 WBC (Bld) 21.1 % Normal 20.0-45.0 [facility] Comment on above: Performed By: #### L [id number] ####[facility] ([facility])[address] [place] [address] MCH (RBC) [Entitic mass] 29.1 pg Normal 27.0-33.0 [facility] Comment on above: Performed By: #### L [id number] ####[facility] ([facility])[address] [place] [address] MCV (RBC) [Entitic vol] 89.1 fL Normal 82.0-98.0 [facility] Comment on above: Performed By: #### L [id number] ####[facility] ([facility])[address] [place] [address] Monocytes (Bld) [#/Vol] 0.38 10*3/uL Normal 0.10-1.00 [facility] Comment on above: Performed By: #### L [id number] ####[facility] ([facility])[address] [place] [address] Monocytes/100 WBC (Bld) 11.5 % Normal 5.0-12.0 [facility] Comment on above: Performed By: #### L [id number] ####[facility] ([facility])[address] [place] [address] Neutrophils (Bld) [#/Vol] 2.03 10*3/uL Normal 1.60-7.60 [facility] Comment on above: Performed By: #### L [id number] ####[facility] ([facility])[address] [place] [address] Neutrophils/100 WBC (Bld) 61.4 % Normal 40.0-72.0 [facility] Comment on above: Performed By: #### L [id number] ####[facility] ([facility])[address] [place] [address] NRBC (PER 100 WBCS) BY AUTOMATED COUNT 0.0 % Normal 0 [facility] Comment on above: Performed By: #### L [id number] ####[facility] ([facility])[address] [place] [address] PLATELETS (10*3/UL) IN BLOOD AUTOMATED COUNT 225 10*3/uL Normal 150-400 [facility] Comment on above: Performed By: #### L [id number] ####[facility] ([facility])[address] [place] [address] RBC (Bld) [#/Vol] 3.13 10*6/uL Low 3.80-5.70 [facility] Comment on above: Performed By: #### L [id number] ####[facility] ([facility])[address] [place] [address] WBC (Bld) [#/Vol] 3.31 10*3/uL Low 4.00-10.60 [facility] Comment on above: Performed By: #### L [id number] ####[facility] ([facility])[address] [place] [address] MAGNESIUMon 06-24-2025 Magnesium [Mass/Vol] 2.2 mg/dL Normal 1.9-2.7 [facility] Comment on above: Performed By: #### L [id number] ####[facility] ([facility])[address] [place] [address] PHOSPHORUSon 06-24-2025 Magnesium [Mass/Vol] 2.6 mg/dL Normal 2.5-5.0 [facility] Comment on above: Performed By: #### L [id number] ####[facility] ([facility])[address] [place] [address] POCT GLUCOSE METER UNSOLICIT ED RESULTSon 06-24-2025 Glucose [Mass/Vol] 109 mg/dL High 70-105 [facility] Comment on above: Order Comment: Waive d Testing in the ED is performed under the ED CLIA certificate #[id number]. Result Comment: [email or web address] Performed By: #### L [id number] ####[facility] ([facility])[address] [place] [address] Glucose [Mass/Vol] 102 mg/dL Normal 70-105 [facility] Comment on above: Order Comment: Waive d Testing in the ED is performed under the ED CLIA certificate #[id number]. Result Comment: [email or web address] Performed By: #### L [id number] ####[facility] ([facility])[address] [place] [address] Glucose [Mass/Vol] 97 mg/dL Normal 70-105 [facility] Comment on above: Order Comment: Waive d Testing in the ED is performed under the ED CLIA certificate #[id number]. Result Comment: [email or web address] air Performed By: #### L [id number] ####[facility] ([facility])[address] [place] [address] Glucose [Mass/Vol] 103 mg/dL Normal 70-105 [facility] Comment on above: Order Comment: Waive d Testing in the ED is performed under the ED CLIA certificate #[id number]. Result Comment: [email or web address] Performed By: #### L [id number] ####[facility] ([facility])[address] [place] [address] Glucose [Mass/Vol] 105 mg/dL Normal 70-105 [facility] Comment on above: Order Comment: Waive d Testing in the ED is performed under the ED CLIA certificate #[id number]. Result Comment: [email or web address] Performed By: #### L [id number] ####[facility] ([facility])[address] [place] [address] 30on 06-23-2025 30 Normal [facility] BASIC METABOLIC PANELon Anion gap [Moles/Vol] 7 mmol/L Normal 7-20 [facility] Comment on above: Performed By: #### L [id number] ####[facility] ([facility])[address] [place] [address] Calcium [Mass/Vol] 8.0 mg/dL Low 8.6-10.3 [facility] Comment on above: Performed By: #### L [id number] ####[facility] ([facility])[address] [place] [address] Chloride [Moles/Vol] 110 mmol/L High 98-107 [facility] Comment on above: Performed By: #### L [id number] ####[facility] ([facility])[address] [place] [address] CO2 [Moles/Vol] 24 mmol/L Normal 21-31 [facility] Comment on above: Performed By: #### L [id number] ####[facility] ([facility])[address] [place] [address] Creatinine [Mass/Vol] 0.56 mg/dL Low 0.60-1.30 [facility] Comment on above: Performed By: #### L [id number] ####[facility] ([facility])[address] [place] [address] GLOMERULAR FILTRATION RATE ML/MIN/1.73 SQ M.PREDICTED 100.6 mL/min/1.73m*2 Normal >60.0 [facility] Comment on above: Result Comment: The [facility]???s estimated glomerular filtration rate (eGFR) will no longer include consideration of race in its calculation. The National Kidney Foundation???s eGFR Task Force developed new recommendations for the estimation of the glomerular filtration rate in the [place] They recommend immediate implementation of the new equation refit without the race variable in all laboratories because the calculation does not include race. In addition to not including race in the calculation and reporting, it included diversity in its development, and has acceptable performance characteristics and potential consequences that do not disproportionately affect any one group of individuals. Performed By: #### L [id number] ####[facility] ([facility])[address] [place] [address] Glucose [Mass/Vol] 104 mg/dL High 70-100 [facility] Comment on above: Performed By: #### L [id number] ####[facility] ([facility])[address] [place] [address] Potassium [Moles/Vol] 3.3 mmol/L Low 3.5-5.1 [facility] Comment on above: Performed By: #### L [id number] ####[facility] ([facility])[address] [place] [address] Sodium [Moles/Vol] 138 mmol/L Normal 136-145 [facility] Comment on above: Performed By: #### L [id number] ####[facility] ([facility])[address] [place] [address] Urea nitrogen [Mass/Vol] 15 mg/dL Normal 7-25 [facility] Comment on above: Performed By: #### L [id number] ####[facility] ([facility])[address] [place] [address] UREA NITROGEN/CREATININE (MASS RATIO) IN SER/PLAS 26.8 Normal [facility] Comment on above: Performed By: #### L [id number] ####[facility] ([facility])[address] [place] [address] CBC WITH AUTO DIFFERENTIALon 06-23-2025 Basophils (Bld) [#/Vol] 0.02 10*3/uL Normal 0.00-0.20 [facility] Comment on above: Performed By: #### L [id number] ####[facility] ([facility])[address] [place] [address] Basophils/100 WBC (Bld) 0.4 % Normal 0.0-1.0 [facility] Comment on above: Performed By: #### L [id number] ####[facility] ([facility])[address] [place] [address] Eosinophils (Bld) [#/Vol] 0.23 10*3/uL Normal 0.00-0.50 [facility] Comment on above: Performed By: #### L [id number] ####[facility] ([facility])[address] [place] [address] Eosinophils/100 WBC (Bld) 4.9 % Normal 0.0-6.0 [facility] Comment on above: Performed By: #### L [id number] ####[facility] ([facility])[address] [place] [address] Erythrocyte distribution width (RBC) [Ratio] 15.9 % High 11.5-15.0 [facility] Comment on above: Performed By: #### L [id number] ####[facility] ([facility])[address] [place] [address] ERYTHROCYTE MEAN CORPUSCULAR HEMOGLOBIN CONCENTRATION (G/DL) BY AUTOMATED 32.8 g/dL Normal 32.0-35.0 [facility] Comment on above: Performed By: #### L [id number] ####[facility] ([facility])[address] [place] [address] Hematocrit (Bld) [Volume fraction] 28.7 % Low 36.0-50.0 [facility] Comment on above: Performed By: #### L [id number] ####[facility] ([facility])[address] [place] [address] Hemoglobin (Bld) [Mass/Vol] 9.4 g/dL Low 12.0-17.0 [facility] Comment on above: Performed By: #### L [id number] ####[facility] ([facility])[address] [place] [address] Immature granulocytes (Bld) [#/Vol] 0.03 10*3/uL Normal 0.00-0.20 [facility] Comment on above: Performed By: #### L [id number] ####[facility] ([facility])[address] [place] [address] Immature granulocytes/100 WBC (Bld) 0.6 % Normal 0.0-1.0 [facility] Comment on above: Performed By: #### L [id number] ####[facility] ([facility])[address] [place] [address] IMMATURE PLATELET FRACTION % 13.1 % High 0.8-6.3 [facility] Comment on above: Performed By: #### L [id number] ####[facility] ([facility])[address] [place] [address] Lymphocytes (Bld) [#/Vol] 0.73 10*3/uL Low 1.20-4.00 [facility] Comment on above: Performed By: #### L [id number] ####[facility] ([facility])[address] [place] [address] Lymphocytes/100 WBC (Bld) 15.6 % Low 20.0-45.0 [facility] Comment on above: Performed By: #### L [id number] ####[facility] ([facility])[address] [place] [address] MCH (RBC) [Entitic mass] 29.1 pg Normal 27.0-33.0 [facility] Comment on above: Performed By: #### L [id number] ####[facility] ([facility])[address] [place] [address] MCV (RBC) [Entitic vol] 88.9 fL Normal 82.0-98.0 [facility] Comment on above: Performed By: #### L [id number] ####[facility] ([facility])[address] [place] [address] Monocytes (Bld) [#/Vol] 0.43 10*3/uL Normal 0.10-1.00 [facility] Comment on above: Performed By: #### L [id number] ####[facility] ([facility])[address] [place] [address] Monocytes/100 WBC (Bld) 9.2 % Normal 5.0-12.0 [facility] Comment on above: Performed By: #### L [id number] ####[facility] ([facility])[address] [place] [address] Neutrophils (Bld) [#/Vol] 3.23 10*3/uL Normal 1.60-7.60 [facility] Comment on above: Performed By: #### L [id number] ####[facility] ([facility])[address] [place] [address] Neutrophils/100 WBC (Bld) 69.3 % Normal 40.0-72.0 [facility] Comment on above: Performed By: #### L [id number] ####[facility] ([facility])[address] [place] [address] NRBC (PER 100 WBCS) BY AUTOMATED COUNT 0.0 % Normal 0 [facility] Comment on above: Performed By: #### L [id number] ####[facility] ([facility])[address] [place] [address] PLATELETS (10*3/UL) IN BLOOD AUTOMATED COUNT 206 10*3/uL Normal 150-400 [facility] Comment on above: Performed By: #### L [id number] ####[facility] ([facility])[address] [place] [address] RBC (Bld) [#/Vol] 3.23 10*6/uL Low 3.80-5.70 [facility] Comment on above: Performed By: #### L [id number] ####[facility] ([facility])[address] [place] [address] WBC (Bld) [#/Vol] 4.67 10*3/uL Normal 4.00-10.60 [facility] Comment on above: Performed By: #### L [id number] ####[facility] ([facility])[address] [place] [address] CONSULTon 06-23-2025 CONSULT Normal [facility] MAGNESIUMon 06-23-2025 Magnesium [Mass/Vol] 1.9 mg/dL Normal 1.9-2.7 [facility] Comment on above: Performed By: #### L [id number] ####[facility] ([facility])[address] [place] [address] PHOSPHORUSon 06-23-2025 Magnesium [Mass/Vol] 2.6 mg/dL Normal 2.5-5.0 [facility] Comment on above: Performed By: #### L [id number] ####[facility] ([facility])[address] [place] [address] POCT GLUCOSE METER UNSOLICIT ED RESULTSon 06-23-2025 Glucose [Mass/Vol] 117 mg/dL High 70-105 [facility] Comment on above: Order Comment: Waive d Testing in the ED is performed under the ED CLIA certificate #[id number]. Result Comment: [id number] Performed By: #### L [id number] ####[facility] ([facility])[address] [place] [address] Glucose [Mass/Vol] 133 mg/dL High 70-105 [facility] Comment on above: Order Comment: Waive d Testing in the ED is performed under the ED CLIA certificate #[id number]. Result Comment: [email or web address] Performed By: #### L [id number] ####[facility] ([facility])[address] [place] [address] Glucose [Mass/Vol] 111 mg/dL High 70-105 [facility] Comment on above: Order Comment: Waive d Testing in the ED is performed under the ED CLIA certificate #[id number]. Result Comment: [email or web address] [id number] Value Noted Performed By: #### L [id number] ####[facility] ([facility])[address] [place] [address] Glucose [Mass/Vol] 95 mg/dL Normal 70-105 [facility] Comment on above: Order Comment: Waive d Testing in the ED is performed under the ED CLIA certificate #[id number]. Result Comment: [email or web address] Performed By: #### L [id number] ####[facility] ([facility])[address] [place] [address] URINALYSISon 06-23-2025 BILIRUBIN, TOTAL PRESENCE IN URINE Negative Normal Negative [facility] Comment on above: Performed By: #### L [id number] ####[facility] ([facility])[address] [place] [address] Clarity (U) Clear Normal Clear [facility] Comment on above: Performed By: #### L [id number] ####[facility] ([facility])[address] [place] [address] Color (U) Light-Yellow Normal Colorless, Yellow, Light-[place] ow [facility] Comment on above: Performed By: #### L [id number] ####[facility] ([facility])[address] [place] [address] GLUCOSE (MG/DL) IN URINE Normal Normal Normal [facility] Comment on above: Performed By: #### L [id number] ####[facility] ([facility])[address] [place] [address] HEMOGLOBIN PRESENCE IN URINE Small Abnormal Negative [facility] Comment on above: Performed By: #### L [id number] ####[facility] ([facility])[address] [place] [address] Ketones Ql (U) Negative Normal Negative [facility] Comment on above: Performed By: #### L [id number] ####[facility] ([facility])[address] [place] [address] LEUKOCYTE ESTERASE PRESENCE IN URINE BY TEST STRIP Large Abnormal Negative [facility] Comment on above: Performed By: #### L [id number] ####[facility] ([facility])[address] [place] [address] NITRITE PRESENCE IN URINE Negative Normal Negative [facility] Comment on above: Performed By: #### L [id number] ####[facility] ([facility])[address] [place] [address] pH (U) 6.5 [pH] Normal 5.0-8.0 [facility] Comment on above: Performed By: #### L [id number] ####[facility] ([facility])[address] [place] [address] Protein (U) [Mass/Vol] Negative Normal [facility] on above: Performed By: #### L [id number] ####[facility] ([facility])[address] [place] [address] Specific gravity (U) [Rel density] 1.005 Low 1.010-1.03 0 [facility] Comment on above: Performed By: #### L [id number] ####[facility] ([facility])[address] [place] [address] UROBILINOGEN (MG/DL) IN URINE 2.0 mg/dL Abnormal Normal [facility] Comment on above: Performed By: #### L [id number] ####[facility] ([facility])[address] [place] [address] URINALYSIS MICROSCOPICon MUCUS (#/LPF) IN URINE SEDIMENT Occasional Normal None Seen, Occasional , Few [facility] Comment on above: Performed By: #### L [id number] ####[facility] ([facility])[address] [place] [address] RBC (#/HPF) IN URINE SEDIMENT 6-10 Abnormal None Seen, 0-2 [facility] Comment on above: Performed By: #### L [id number] ####[facility] (BE[facility])[address] [place] [address] SQUAMOUS EPITHELIAL CELLS (#/LPF) IN URINE SEDIMENT None Seen Normal None Seen, Occasional , Few [facility] Comment on above: Performed By: #### L [id number] ####[facility] ([facility])[address] [place] [address] WBC (LEUKOCYTE) (#/HPF) IN URINE SEDIMENT 11-20 Abnormal None Seen, 0-2 [facility] Comment on above: Performed By: #### L [id number] ####[facility] ([facility])[address] [place] [address] BASIC METABOLIC PANELon 09-0 Anion gap [Moles/Vol] 7 mmol/L Normal 7-20 [facility] Comment on above: Performed By: #### L [id number] ####[facility] ([facility])[address] [place] [address] Calcium [Mass/Vol] 8.1 mg/dL Low 8.6-10.3 [facility] Comment on above: Performed By: #### L [id number] ####[facility] ([facility])[address] [place] [address] Chloride [Moles/Vol] 110 mmol/L High 98-107 [facility] Comment on above: Performed By: #### L [id number] ####[facility] ([facility])[address] [place] [address] CO2 [Moles/Vol] 24 mmol/L Normal 21-31 [facility] Comment on above: Performed By: #### L [id number] ####[facility] ([facility])[address] [place] [address] Creatinine [Mass/Vol] 0.55 mg/dL Low 0.60-1.30 [facility] Comment on above: Performed By: #### L [id number] ####[facility] ([facility])[address] [place] [address] GLOMERULAR FILTRATION RATE ML/MIN/1.73 SQ M.PREDICTED 101.0 mL/min/1.73m*2 Normal >60.0 [facility] Comment on above: Result Comment: The [facility]???s estimated glomerular filtration rate (eGFR) will no longer include consideration of race in its calculation. The National Kidney Foundation???s eGFR Task Force developed new recommendations for the estimation of the glomerular filtration rate in the [place] They recommend immediate implementation of the new equation refit without the race variable in all laboratories because the calculation does not include race. In addition to not including race in the calculation and reporting, it included diversity in its development, and has acceptable performance characteristics and potential consequences that do not disproportionately affect any one group of individuals. Performed By: #### L [id number] ####[facility] ([facility])[address] [place] [address] Glucose [Mass/Vol] 99 mg/dL Normal 70-100 [facility] Comment on above: Performed By: #### L [id number] ####[facility] ([facility])[address] [place] [address] Potassium [Moles/Vol] 3.2 mmol/L Low 3.5-5.1 [facility] Comment on above: Performed By: #### L [id number] ####[facility] ([facility])[address] [place] [address] Sodium [Moles/Vol] 138 mmol/L Normal 136-145 [facility] Comment on above: Performed By: #### L [id number] ####[facility] ([facility])[address] [place] [address] Urea nitrogen [Mass/Vol] 14 mg/dL Normal 7-25 [facility] Comment on above: Performed By: #### L [id number] ####[facility] ([facility])[address] [place] [address] UREA NITROGEN/CREATININE (MASS RATIO) IN SER/PLAS 25.5 Normal [facility] Comment on above: Performed By: #### L [id number] ####[facility] ([facility])[address] [place] [address] CBC WITH AUTO DIFFERENTIALon 06-22-2025 Basophils (Bld) [#/Vol] 0.01 10*3/uL Normal 0.00-0.20 [facility] Comment on above: Performed By: #### L [id number] ####[facility] ([facility])[address] [place] [address] Basophils/100 WBC (Bld) 0.3 % Normal 0.0-1.0 [facility] Comment on above: Performed By: #### L [id number] ####[facility] ([facility])[address] [place] [address] Eosinophils (Bld) [#/Vol] 0.20 10*3/uL Normal 0.00-0.50 [facility] Comment on above: Performed By: #### L [id number] ####[facility] ([facility])[address] [place] [address] Eosinophils/100 WBC (Bld) 5.1 % Normal 0.0-6.0 [facility] Comment on above: Performed By: #### L [id number] ####[facility] ([facility])[address] [place] [address] Erythrocyte distribution width (RBC) [Ratio] 15.7 % High 11.5-15.0 [facility] Comment on above: Performed By: #### L [id number] ####[facility] ([facility])[address] [place] [address] ERYTHROCYTE MEAN CORPUSCULAR HEMOGLOBIN CONCENTRATION (G/DL) BY AUTOMATED 32.7 g/dL Normal 32.0-35.0 [facility] Comment on above: Performed By: #### L [id number] ####[facility] ([facility])[address] [place] [address] Hematocrit (Bld) [Volume fraction] 26.0 % Low 36.0-50.0 [facility] Comment on above: Performed By: #### L [id number] ####[facility] ([facility])[address] [place] [address] Hemoglobin (Bld) [Mass/Vol] 8.5 g/dL Low 12.0-17.0 [facility] Comment on above: Performed By: #### L [id number] ####[facility] ([facility])[address] [place] [address] Immature granulocytes (Bld) [#/Vol] 0.02 10*3/uL Normal 0.00-0.20 [facility] Comment on above: Performed By: #### L [id number] ####[facility] ([facility])[address] [place] [address] Immature granulocytes/100 WBC (Bld) 0.5 % Normal 0.0-1.0 [facility] Comment on above: Performed By: #### L [id number] ####[facility] ([facility])[address] [place] [address] Lymphocytes (Bld) [#/Vol] 0.80 10*3/uL Low 1.20-4.00 [facility] Comment on above: Performed By: #### L [id number] ####[facility] ([facility])[address] [place] [address] Lymphocytes/100 WBC (Bld) 20.4 % Normal 20.0-45.0 [facility] Comment on above: Performed By: #### L [id number] ####[facility] ([facility])[address] [place] [address] MCH (RBC) [Entitic mass] 28.9 pg Normal 27.0-33.0 [facility] Comment on above: Performed By: #### L [id number] ####[facility] ([facility])[address] [place] [address] MCV (RBC) [Entitic vol] 88.4 fL Normal 82.0-98.0 [facility] Comment on above: Performed By: #### L [id number] ####[facility] ([facility])[address] [place] [address] Monocytes (Bld) [#/Vol] 0.44 10*3/uL Normal 0.10-1.00 [facility] Comment on above: Performed By: #### L [id number] ####[facility] ([facility])[address] [place] [address] Monocytes/100 WBC (Bld) 11.2 % Normal 5.0-12.0 [facility] Comment on above: Performed By: #### L [id number] ####[facility] ([facility])[address] [place] [address] Neutrophils (Bld) [#/Vol] 2.45 10*3/uL Normal 1.60-7.60 [facility] Comment on above: Performed By: #### L [id number] ####[facility] ([facility])[address] [place] [address] Neutrophils/100 WBC (Bld) 62.5 % Normal 40.0-72.0 [facility] Comment on above: Performed By: #### L [id number] ####[facility] ([facility])[address] [place] [address] NRBC (PER 100 WBCS) BY AUTOMATED COUNT 0.0 % Normal 0 [facility] Comment on above: Performed By: #### L [id number] ####[facility] ([facility])[address] [place] [address] PLATELETS (10*3/UL) IN BLOOD AUTOMATED COUNT 169 10*3/uL Normal 150-400 [facility] Comment on above: Performed By: #### L [id number] ####[facility] ([facility])[address] [place], [place] [address] RBC (Bld) [#/Vol] 2.94 10*6/uL Low 3.80-5.70 [facility] Comment on above: Performed By: #### L [id number] ####[facility] ([facility])[address] [place] [address] WBC (Bld) [#/Vol] 3.92 10*3/uL Low 4.00-10.60 [facility] Comment on above: Performed By: #### L [id number] ####[facility] ([facility])[address] [place] [address] NURSNOTEon 06-22-2025 NURSNOTE Normal [facility] PHOSPHORUSon 06-22-2025 Magnesium [Mass/Vol] 2.6 mg/dL Normal 2.5-5.0 [facility] Comment on above: Performed By: #### L [id number] ####[facility] ([facility])[address] [place] [address] POCT GLUCOSE METER UNSOLICIT ED RESULTSon 06-22-2025 Glucose [Mass/Vol] 129 mg/dL High 70-105 [facility] Comment on above: Order Comment: Waive d Testing in the ED is performed under the ED CLIA certificate #[id number]. Result Comment: [email or web address] [email or web address] Performed By: #### L [id number] ####[facility] ([facility])[address] [place] [address] Glucose [Mass/Vol] 98 mg/dL Normal 70-105 [facility] Comment on above: Order Comment: Waive d Testing in the ED is performed under the ED CLIA certificate #[id number]. Result Comment: [email or web address] [email or web address] Performed By: #### L [id number] ####[facility] ([facility])[address] [place] [address] Glucose [Mass/Vol] 122 mg/dL High 70-105 [facility] Comment on above: Order Comment: Waive d Testing in the ED is performed under the ED CLIA certificate #[id number]. Result Comment: [email or web address] [email or web address] Performed By: #### L [id number] ####[facility] ([facility])[address] [place] [address] URINE CULTURE, ROUTINEon Cefepime [Susc] 4 ug/ml Susceptible [facility] Comment on above: Performed By: #### L [id number] ####[facility] ([facility])[address] [place] [address] Ciprofloxacin [Susc] 0.5 ug/ml Susceptible [facility] Comment on above: Performed By: #### L [id number] ####[facility] ([facility])[address] [place] [address] levoFLOXacin [Susc] 1 ug/ml Susceptible [facility] Comment on above: Performed By: #### L [id number] ####[facility] ([facility])[address] [place] [address] Meropenem [Susc] 1 ug/ml Susceptible [facility] Comment on above: Performed By: #### L [id number] ####[facility] ([facility])[address] [place] [address] Piperacillin+Tazobacta m [Susc] 8/4 Susceptible [facility] Comment on above: Performed By: #### L [id number] ####[facility] ([facility])[address] [place] [address] Tobramycin [Susc] <=2 Susceptible [facility] Comment on above: Performed By: #### L [id number] ####[facility] ([facility])[address] [place] [address] 30on 06-21-2025 30 Normal [facility] BASIC METABOLIC PANELon Anion gap [Moles/Vol] 11 mmol/L Normal 7-20 [facility] Comment on above: Performed By: #### L [id number] ####[facility] ([facility])[address] [place] [address] Calcium [Mass/Vol] 7.9 mg/dL Low 8.6-10.3 [facility] Comment on above: Performed By: #### L [id number] ####[facility] ([facility])[address] [place] [address] Chloride [Moles/Vol] 110 mmol/L High 98-107 [facility] Comment on above: Performed By: #### L [id number] ####[facility] ([facility])[address] [place] [address] CO2 [Moles/Vol] 21 mmol/L Normal 21-31 [facility] Comment on above: Performed By: #### L [id number] ####[facility] ([facility])[address] [place] [address] Creatinine [Mass/Vol] 0.56 mg/dL Low 0.60-1.30 [facility] Comment on above: Performed By: #### L [id number] ####[facility] ([facility])[address] [place] [address] GLOMERULAR FILTRATION RATE ML/MIN/1.73 SQ M.PREDICTED 100.6 mL/min/1.73m*2 Normal >60.0 [facility] Comment on above: Result Comment: The [facility]???s estimated glomerular filtration rate (eGFR) will no longer include consideration of race in its calculation. The National Kidney Foundation???s eGFR Task Force developed new recommendations for the estimation of the glomerular filtration rate in the [place] They recommend immediate implementation of the new equation refit without the race variable in all laboratories because the calculation does not include race. In addition to not including race in the calculation and reporting, it included diversity in its development, and has acceptable performance characteristics and potential consequences that do not disproportionately affect any one group of individuals. Performed By: #### L [id number] ####[facility] ([facility])[address] [place] [address] Glucose [Mass/Vol] 126 mg/dL High 70-100 [facility] Comment on above: Performed By: #### L [id number] ####[facility] ([facility])[address] [place] [address] Potassium [Moles/Vol] 3.6 mmol/L Normal 3.5-5.1 [facility] Comment on above: Performed By: #### L [id number] ####[facility] ([facility])[address] [place] [address] Performed By: #### L [id number] ####[facility] ([facility])[address] [place] [address] Sodium [Moles/Vol] 138 mmol/L Normal 136-145 [facility] Comment on above: Performed By: #### L [id number] ####[facility] ([facility])[address] [place] [address] Urea nitrogen [Mass/Vol] 10 mg/dL Normal 7-25 [facility] Comment on above: Performed By: #### L [id number] ####[facility] ([facility])[address] [place] [address] UREA NITROGEN/CREATININE (MASS RATIO) IN SER/PLAS 17.9 Normal [facility] Comment on above: Performed By: #### L [id number] ####[facility] ([facility])[address] [place] [address] Anion gap [Moles/Vol] 11 mmol/L Normal 7-20 [facility] Comment on above: Performed By: #### L [id number] ####[facility] ([facility])[address] [place] [address] Calcium [Mass/Vol] 7.9 mg/dL Low 8.6-10.3 [facility] Comment on above: Performed By: #### L [id number] ####[facility] ([facility])[address] [place] [address] Chloride [Moles/Vol] 110 mmol/L High 98-107 [facility] Comment on above: Performed By: #### L [id number] ####[facility] ([facility])[address] [place] [address] CO2 [Moles/Vol] 20 mmol/L Low 21-31 [facility] Comment on above: Performed By: #### L [id number] ####[facility] ([facility])[address] [place] [address] Creatinine [Mass/Vol] 0.53 mg/dL Low 0.60-1.30 [facility] Comment on above: Performed By: #### L [id number] ####[facility] ([facility])[address] [place] [address] GLOMERULAR FILTRATION RATE ML/MIN/1.73 SQ M.PREDICTED 101.9 mL/min/1.73m*2 Normal >60.0 [facility] Comment on above: Result Comment: The [facility]???s estimated glomerular filtration rate (eGFR) will no longer include consideration of race in its calculation. The National Kidney Foundation???s eGFR Task Force developed new recommendations for the estimation of the glomerular filtration rate in the [place] They recommend immediate implementation of the new equation refit without the race variable in all laboratories because the calculation does not include race. In addition to not including race in the calculation and reporting, it included diversity in its development, and has acceptable performance characteristics and potential consequences that do not disproportionately affect any one group of individuals. Performed By: #### L [id number] ####[facility] ([facility])[address] [place] [address] Glucose [Mass/Vol] 119 mg/dL High 70-100 [facility] Comment on above: Performed By: #### L [id number] ####[facility] ([facility])[address] [place] [address] Potassium [Moles/Vol] 3.1 mmol/L Low 3.5-5.1 [facility] Comment on above: Performed By: #### L [id number] ####[facility] ([facility])[address] [place] [address] Sodium [Moles/Vol] 138 mmol/L Normal 136-145 [facility] Comment on above: Performed By: #### L [id number] ####[facility] ([facility])[address] [place] [address] Urea nitrogen [Mass/Vol] 9 mg/dL Normal 7-25 [facility] Comment on above: Performed By: #### L [id number] ####[facility] ([facility])[address] [place] [address] UREA NITROGEN/CREATININE (MASS RATIO) IN SER/PLAS 17.0 Normal [facility] Comment on above: Performed By: #### L [id number] ####[facility] ([facility])[address] [place] [address] CBC WITH AUTO DIFFERENTIALon 06-21-2025 Basophils (Bld) [#/Vol] 0.02 10*3/uL Normal 0.00-0.20 [facility] Comment on above: Performed By: #### L [id number] ####[facility] ([facility])[address] [place] [address] Basophils/100 WBC (Bld) 0.4 % Normal 0.0-1.0 [facility] Comment on above: Performed By: #### L [id number] ####[facility] ([facility])[address] [place] [address] Eosinophils (Bld) [#/Vol] 0.20 10*3/uL Normal 0.00-0.50 [facility] Comment on above: Performed By: #### L [id number] ####[facility] ([facility])[address] [place] [address] Eosinophils/100 WBC (Bld) 3.7 % Normal 0.0-6.0 [facility] Comment on above: Performed By: #### L [id number] ####[facility] ([facility])[address] [place] [address] Erythrocyte distribution width (RBC) [Ratio] 15.5 % High 11.5-15.0 [facility] Comment on above: Performed By: #### L [id number] ####[facility] ([facility])[address] [place] [address] ERYTHROCYTE MEAN CORPUSCULAR HEMOGLOBIN CONCENTRATION (G/DL) BY AUTOMATED 33.7 g/dL Normal 32.0-35.0 [facility] Comment on above: Performed By: #### L [id number] ####[facility] ([facility])[address] [place] [address] Hematocrit (Bld) [Volume fraction] 28.2 % Low 36.0-50.0 [facility] Comment on above: Performed By: #### L [id number] ####[facility] ([facility])[address] [place] [address] Hemoglobin (Bld) [Mass/Vol] 9.5 g/dL Low 12.0-17.0 [facility] Comment on above: Performed By: #### L [id number] ####[facility] ([facility])[address] [place] [address] Immature granulocytes (Bld) [#/Vol] 0.03 10*3/uL Normal 0.00-0.20 [facility] Comment on above: Performed By: #### L [id number] ####[facility] ([facility])[address] [place] [address] Immature granulocytes/100 WBC (Bld) 0.6 % Normal 0.0-1.0 [facility] Comment on above: Performed By: #### L [id number] ####[facility] ([facility])[address] [place] [address] Lymphocytes (Bld) [#/Vol] 0.82 10*3/uL Low 1.20-4.00 [facility] Comment on above: Performed By: #### L [id number] ####[facility] ([facility])[address] [place] [address] Lymphocytes/100 WBC (Bld) 15.3 % Low 20.0-45.0 [facility] Comment on above: Performed By: #### L [id number] ####[facility] ([facility])[address] [place] [address] MCH (RBC) [Entitic mass] 29.2 pg Normal 27.0-33.0 [facility] Comment on above: Performed By: #### L [id number] ####[facility] ([facility])[address] [place] [address] MCV (RBC) [Entitic vol] 86.8 fL Normal 82.0-98.0 [facility] Comment on above: Performed By: #### L [id number] ####[facility] ([facility])[address] [place] [address] Monocytes (Bld) [#/Vol] 0.51 10*3/uL Normal 0.10-1.00 [facility] Comment on above: Performed By: #### L [id number] ####[facility] ([facility])[address] [place] [address] Monocytes/100 WBC (Bld) 9.5 % Normal 5.0-12.0 [facility] Comment on above: Performed By: #### L [id number] ####[facility] ([facility])[address] [place] [address] Neutrophils (Bld) [#/Vol] 3.77 10*3/uL Normal 1.60-7.60 [facility] Comment on above: Performed By: #### L [id number] ####[facility] ([facility])[address] [place] [address] Neutrophils/100 WBC (Bld) 70.5 % Normal 40.0-72.0 [facility] Comment on above: Performed By: #### L [id number] ####[facility] ([facility])[address] [place] [address] NRBC (PER 100 WBCS) BY AUTOMATED COUNT 0.0 % Normal 0 [facility] Comment on above: Performed By: #### L [id number] ####[facility] ([facility])[address] [place] [address] PLATELETS (10*3/UL) IN BLOOD AUTOMATED COUNT 164 10*3/uL Normal 150-400 [facility] Comment on above: Performed By: #### L [id number] ####[facility] ([facility])[address] [place] [address] RBC (Bld) [#/Vol] 3.25 10*6/uL Low 3.80-5.70 [facility] Comment on above: Performed By: #### L [id number] ####[facility] ([facility])[address] [place] [address] WBC (Bld) [#/Vol] 5.35 10*3/uL Normal 4.00-10.60 [facility] Comment on above: Performed By: #### L [id number] ####[facility] ([facility])[address] [place] [address] CONSULTon 06-21-2025 CONSULT Normal [facility] CONSULT Normal [facility] MAGNESIUMon 06-21-2025 Magnesium [Mass/Vol] 2.0 mg/dL Normal 1.9-2.7 [facility] Comment on above: Performed By: #### L [id number] ####[facility] ([facility])[address] [place] [address] PHOSPHORUSon 06-21-2025 Magnesium [Mass/Vol] 1.4 mg/dL Low 2.5-5.0 [facility] Comment on above: Performed By: #### L [id number] ####[facility] ([facility])[address] [place] [address] POCT GLUCOSE METER UNSOLICIT ED RESULTSon 06-21-2025 Glucose [Mass/Vol] 119 mg/dL High 70-105 [facility] Comment on above: Order Comment: Waive d Testing in the ED is performed under the ED CLIA certificate #[id number]. Result Comment: [email or web address] Performed By: #### L [id number] ####[facility] ([facility])[address] [place] [address] Glucose [Mass/Vol] 127 mg/dL High 70-105 [facility] Comment on above: Order Comment: Waive d Testing in the ED is performed under the ED CLIA certificate #[id number]. Result Comment: [email or web address] oux Performed By: #### L [id number] ####[facility] ([facility])[address] [place] [address] Glucose [Mass/Vol] 136 mg/dL High 70-105 [facility] Comment on above: Order Comment: Waive d Testing in the ED is performed under the ED CLIA certificate #[id number]. Result Comment: bronson rico Performed By: #### L [id number] ####[facility] ([facility])[address] [place] [address] Glucose [Mass/Vol] 110 mg/dL High 70-105 [facility] Comment on above: Order Comment: Waive d Testing in the ED is performed under the ED CLIA certificate #[id number]. Result Comment: [email or web address] [email or web address] Performed By: #### L [id number] ####[facility] ([facility])[address] [place] [address] BASIC METABOLIC PANELon 09-0 Anion gap [Moles/Vol] 9 mmol/L Normal 7-20 [facility] Comment on above: Performed By: #### L [id number] ####[facility] ([facility])[address] [place] [address] Calcium [Mass/Vol] 8.0 mg/dL Low 8.6-10.3 [facility] Comment on above: Performed By: #### L [id number] ####[facility] ([facility])[address] [place] [address] Chloride [Moles/Vol] 110 mmol/L High 98-107 [facility] Comment on above: Performed By: #### L [id number] ####[facility] ([facility])[address] [place] [address] CO2 [Moles/Vol] 23 mmol/L Normal 21-31 [facility] Comment on above: Performed By: #### L [id number] ####[facility] ([facility])[address] [place] [address] Creatinine [Mass/Vol] 0.58 mg/dL Low 0.60-1.30 [facility] Comment on above: Performed By: #### L [id number] ####[facility] ([facility])[address] [place] [address] GLOMERULAR FILTRATION RATE ML/MIN/1.73 SQ M.PREDICTED 99.7 mL/min/1.73m*2 Normal >60.0 [facility] Comment on above: Result Comment: The [facility]???s estimated glomerular filtration rate (eGFR) will no longer include consideration of race in its calculation. The National Kidney Foundation???s eGFR Task Force developed new recommendations for the estimation of the glomerular filtration rate in the [place] They recommend immediate implementation of the new equation refit without the race variable in all laboratories because the calculation does not include race. In addition to not including race in the calculation and reporting, it included diversity in its development, and has acceptable performance characteristics and potential consequences that do not disproportionately affect any one group of individuals. Performed By: #### L [id number] ####[facility] ([facility])[address] [place] [address] Glucose [Mass/Vol] 112 mg/dL High 70-100 [facility] Comment on above: Performed By: #### L [id number] ####[facility] ([facility])[address] [place] [address] Potassium [Moles/Vol] 2.9 mmol/L Invalid Interpretation Code 3.5-5.1 [facility] Comment on above: Performed By: #### L [id number] ####[facility] ([facility])[address] [place] [address] Sodium [Moles/Vol] 139 mmol/L Normal 136-145 [facility] Comment on above: Performed By: #### L [id number] ####[facility] ([facility])[address] [address] Urea nitrogen [Mass/Vol] 12 mg/dL Normal 7-25 [facility] Comment on above: Performed By: #### L [id number] ####[facility] ([facility])[address] [place] [address] UREA NITROGEN/CREATININE (MASS RATIO) IN SER/PLAS 20.7 Normal [facility] Comment on above: Performed By: #### L [id number] ####[facility] ([facility])[address] [place] [address] Anion gap [Moles/Vol] 9 mmol/L Normal 7-20 [facility] Comment on above: Performed By: #### L [id number] ####[facility] ([facility])[address] [place] [address] Calcium [Mass/Vol] 7.9 mg/dL Low 8.6-10.3 [facility] Comment on above: Performed By: #### L [id number] ####[facility] ([facility])[address] [place] [address] Chloride [Moles/Vol] 109 mmol/L High 98-107 [facility] Comment on above: Performed By: #### L [id number] ####[facility] ([facility])[address] [place] [address] CO2 [Moles/Vol] 23 mmol/L Normal 21-31 [facility] Comment on above: Performed By: #### L [id number] ####[facility] ([facility])[address] [place] [address] Creatinine [Mass/Vol] 0.57 mg/dL Low 0.60-1.30 [facility] Comment on above: Performed By: #### L [id number] ####[facility] ([facility])[address] [place] [address] GLOMERULAR FILTRATION RATE ML/MIN/1.73 SQ M.PREDICTED 100.2 mL/min/1.73m*2 Normal >60.0 [facility] Comment on above: Result Comment: The [facility]???s estimated glomerular filtration rate (eGFR) will no longer include consideration of race in its calculation. The National Kidney Foundation???s eGFR Task Force developed new recommendations for the estimation of the glomerular filtration rate in the [place] They recommend immediate implementation of the new equation refit without the race variable in all laboratories because the calculation does not include race. In addition to not including race in the calculation and reporting, it included diversity in its development, and has acceptable performance characteristics and potential consequences that do not disproportionately affect any one group of individuals. Performed By: #### L [id number] ####[facility] ([facility])[address] [place] [address] Glucose [Mass/Vol] 108 mg/dL High 70-100 [facility] Comment on above: Performed By: #### L [id number] ####[facility] ([facility])[address] [place] [address] Potassium [Moles/Vol] 2.9 mmol/L Invalid Interpretation Code 3.5-5.1 [facility] Comment on above: Performed By: #### L [id number] ####[facility] ([facility])[address] [place] [address] Sodium [Moles/Vol] 138 mmol/L Normal 136-145 [facility] Comment on above: Performed By: #### L [id number] ####[facility] ([facility])[address] [place] [address] Urea nitrogen [Mass/Vol] 13 mg/dL Normal 7-25 [facility] Comment on above: Performed By: #### L [id number] ####[facility] ([facility])[address] [place] [address] UREA NITROGEN/CREATININE (MASS RATIO) IN SER/PLAS 22.8 Normal [facility] Comment on above: Performed By: #### L [id number] ####[facility] ([facility])[address] [place] [address] CBCon 06-20-2025 Erythrocyte distribution width (RBC) [Ratio] 15.7 % High 11.5-15.0 [facility] Comment on above: Performed By: #### L [id number] ####[facility] ([facility])[address] [place] [address] ERYTHROCYTE MEAN CORPUSCULAR HEMOGLOBIN CONCENTRATION (G/DL) BY AUTOMATED 33.7 g/dL Normal 32.0-35.0 [facility] Comment on above: Performed By: #### L [id number] ####[facility] ([facility])[address] [place] [address] Hematocrit (Bld) [Volume fraction] 27.9 % Low 36.0-50.0 [facility] Comment on above: Performed By: #### L [id number] ####[facility] ([facility])[address] [place] [address] Hemoglobin (Bld) [Mass/Vol] 9.4 g/dL Low 12.0-17.0 [facility] Comment on above: Performed By: #### L [id number] ####[facility] ([facility])[address] [place], [place] [address] IMMATURE PLATELET FRACTION % 13.0 % High 0.8-6.3 [facility] Comment on above: Performed By: #### L [id number] ####[facility] ([facility])[address] [place] [address] MCH (RBC) [Entitic mass] 28.8 pg Normal 27.0-33.0 [facility] Comment on above: Performed By: #### L [id number] ####[facility] ([facility])[address] [place] [address] MCV (RBC) [Entitic vol] 85.6 fL Normal 82.0-98.0 [facility] Comment on above: Performed By: #### L [id number] ####[facility] ([facility])[address] [place] [address] PLATELETS (10*3/UL) IN BLOOD AUTOMATED COUNT 155 10*3/uL Normal 150-400 [facility] Comment on above: Performed By: #### L [id number] ####[facility] ([facility])[address] [place] [address] RBC (Bld) [#/Vol] 3.26 10*6/uL Low 3.80-5.70 [facility] Comment on above: Performed By: #### L [id number] ####[facility] ([facility])[address] [place] [address] WBC (Bld) [#/Vol] 5.71 10*3/uL Normal 4.00-10.60 [facility] Comment on above: Performed By: #### L [id number] ####[facility] ([facility])[address] [place] [address] CT ABDOMEN PELVIS WO IV CONT RASTon 06-20-2025 CT ABDOMEN PELVIS WO IV CONTRAST Invalid Interpretation Code [facility] HEMOGLOBIN AND HEMATOCRIT, B LOODon 06-20-2025 Hematocrit (Bld) [Volume fraction] 26.8 % Low 36.0-50.0 [facility] Comment on above: Performed By: #### L [id number] ####[facility] ([facility])[address] [place] [address] Hemoglobin (Bld) [Mass/Vol] 9.2 g/dL Low 12.0-17.0 [facility] Comment on above: Performed By: #### L [id number] ####[facility] ([facility])[address] [place] [address] MAGNESIUMon 06-20-2025 Magnesium [Mass/Vol] 2.2 mg/dL Normal 1.9-2.7 [facility] Comment on above: Performed By: #### L [id number] ####[facility] ([facility])[address] [place] [address] Magnesium [Mass/Vol] 1.8 mg/dL Low 1.9-2.7 [facility] Comment on above: Performed By: #### L [id number] ####[facility] ([facility])[address] [place] [address] POCT GLUCOSE METER UNSOLICIT ED RESULTSon 06-20-2025 Glucose [Mass/Vol] 127 mg/dL High 70-105 [facility] Comment on above: Order Comment: Waive d Testing in the ED is performed under the ED CLIA certificate #[id number]. Result Comment: [email or web address] er Performed By: #### L [id number] ####[facility] ([facility])[address] [place] [address] Glucose [Mass/Vol] 124 mg/dL High 70-105 [facility] Comment on above: Order Comment: Waive d Testing in the ED is performed under the ED CLIA certificate #[id number]. Result Comment: [email or web address] es Performed By: #### L [id number] ####[facility] ([facility])[address] [place] [address] Glucose [Mass/Vol] 130 mg/dL High 70-105 [facility] Comment on above: Order Comment: Waive d Testing in the ED is performed under the ED CLIA certificate #[id number]. Result Comment: [email or web address] es Performed By: #### L [id number] ####[facility] ([facility])[address] [place] [address] Glucose [Mass/Vol] 118 mg/dL High 70-105 [facility] Comment on above: Order Comment: Waive d Testing in the ED is performed under the ED CLIA certificate #[id number]. Result Comment: [email or web address] Performed By: #### L [id number] ####[facility] ([facility])[address] [place] [address] Glucose [Mass/Vol] 108 mg/dL High 70-105 [facility] Comment on above: Order Comment: Waive d Testing in the ED is performed under the ED CLIA certificate #[id number]. Result Comment: [email or web address] Performed By: #### L [id number] ####[facility] ([facility])[address] [place] [address] POTASSIUMon 06-20-2025 Potassium [Moles/Vol] 3.3 mmol/L Low 3.5-5.1 [facility] Comment on above: Performed By: #### L [id number] ####[facility] ([facility])[address] [place] [address] BASIC METABOLIC PANELon - Anion gap [Moles/Vol] 9 mmol/L Normal 7-20 [facility] Comment on above: Performed By: #### L [id number] ####[facility] ([facility])[address] [place] [address] Calcium [Mass/Vol] 7.8 mg/dL Low 8.6-10.3 [facility] Comment on above: Performed By: #### L [id number] ####[facility] ([facility])[address] [place] [address] Chloride [Moles/Vol] 110 mmol/L High 98-107 [facility] Comment on above: Performed By: #### L [id number] ####[facility] ([facility])[address] [place] [address] CO2 [Moles/Vol] 23 mmol/L Normal 21-31 [facility] Comment on above: Performed By: #### L [id number] ####[facility] ([facility])[address] [place] [address] Creatinine [Mass/Vol] 0.63 mg/dL Normal 0.60-1.30 [facility] Comment on above: Performed By: #### L [id number] ####[facility] ([facility])[address] [place] [address] GLOMERULAR FILTRATION RATE ML/MIN/1.73 SQ M.PREDICTED 97.8 mL/min/1.73m*2 Normal >60.0 [facility] Comment on above: Result Comment: The [facility]???s estimated glomerular filtration rate (eGFR) will no longer include consideration of race in its calculation. The National Kidney Foundation???s eGFR Task Force developed new recommendations for the estimation of the glomerular filtration rate in the [place] They recommend immediate implementation of the new equation refit without the race variable in all laboratories because the calculation does not include race. In addition to not including race in the calculation and reporting, it included diversity in its development, and has acceptable performance characteristics and potential consequences that do not disproportionately affect any one group of individuals. Performed By: #### L [id number] ####[facility] ([facility])[address] [place] [address] Glucose [Mass/Vol] 113 mg/dL High 70-100 [facility] Comment on above: Performed By: #### L [id number] ####[facility] ([facility])[address] [place] [address] Potassium [Moles/Vol] 2.8 mmol/L Invalid Interpretation Code 3.5-5.1 [facility] Comment on above: Performed By: #### L [id number] ####[facility] ([facility])[address] [place] [address] Sodium [Moles/Vol] 139 mmol/L Normal 136-145 [facility] Comment on above: Performed By: #### L [id number] ####[facility] ([facility])[address] [place] [address] Urea nitrogen [Mass/Vol] 15 mg/dL Normal 7-25 [facility] Comment on above: Performed By: #### L [id number] ####[facility] ([facility])[address] [place] [address] UREA NITROGEN/CREATININE (MASS RATIO) IN SER/PLAS 23.8 Normal [facility] Comment on above: Performed By: #### L [id number] ####[facility] ([facility])[address] [place] [address] Anion gap [Moles/Vol] 9 mmol/L Normal 7-20 [facility] Comment on above: Performed By: #### L [id number] ####[facility] ([facility])[address] [place] [address] Calcium [Mass/Vol] 7.9 mg/dL Low 8.6-10.3 [facility] Comment on above: Performed By: #### L [id number] ####[facility] ([facility])[address] [place] [address] Chloride [Moles/Vol] 112 mmol/L High 98-107 [facility] Comment on above: Performed By: #### L [id number] ####[facility] ([facility])[address] [place] [address] CO2 [Moles/Vol] 25 mmol/L Normal 21-31 [facility] Comment on above: Performed By: #### L [id number] ####[facility] ([facility])[address] [place] [address] Creatinine [Mass/Vol] 0.83 mg/dL Normal 0.60-1.30 [facility] Comment on above: Performed By: #### L [id number] ####[facility] ([facility])[address] [address] GLOMERULAR FILTRATION RATE ML/MIN/1.73 SQ M.PREDICTED 77.7 mL/min/1.73m*2 Normal >60.0 [facility] Comment on above: Result Comment: The [facility]???s estimated glomerular filtration rate (eGFR) will no longer include consideration of race in its calculation. The National Kidney Foundation???s eGFR Task Force developed new recommendations for the estimation of the glomerular filtration rate in the [place] They recommend immediate implementation of the new equation refit without the race variable in all laboratories because the calculation does not include race. In addition to not including race in the calculation and reporting, it included diversity in its development, and has acceptable performance characteristics and potential consequences that do not disproportionately affect any one group of individuals. Performed By: #### L [id number] ####[facility] ([facility])[address] [place] [address] Glucose [Mass/Vol] 107 mg/dL High 70-100 [facility] Comment on above: Performed By: #### L [id number] ####[facility] ([facility])[address] [place] [address] Potassium [Moles/Vol] 2.8 mmol/L Invalid Interpretation Code 3.5-5.1 [facility] Comment on above: Performed By: #### L [id number] ####[facility] ([facility])[address] [place] [address] Sodium [Moles/Vol] 143 mmol/L Normal 136-145 [facility] Comment on above: Performed By: #### L [id number] ####[facility] ([facility])[address] [place] [address] Urea nitrogen [Mass/Vol] 22 mg/dL Normal 7-25 [facility] Comment on above: Performed By: #### L [id number] ####[facility] ([facility])[address] [place] [address] UREA NITROGEN/CREATININE (MASS RATIO) IN SER/PLAS 26.5 Normal [facility] Comment on above: Performed By: #### L [id number] ####[facility] ([facility])[address] [place] [address] CBCon 06-19-2025 Erythrocyte distribution width (RBC) [Ratio] 15.7 % High 11.5-15.0 [facility] Comment on above: Performed By: #### L [id number] ####[facility] ([facility])[address] [address] ERYTHROCYTE MEAN CORPUSCULAR HEMOGLOBIN CONCENTRATION (G/DL) BY AUTOMATED 32.9 g/dL Normal 32.0-35.0 [facility] Comment on above: Performed By: #### L [id number] ####[facility] ([facility])[address] [place], [place] [address] Hematocrit (Bld) [Volume fraction] 24.0 % Low 36.0-50.0 [facility] Comment on above: Performed By: #### L [id number] ####[facility] ([facility])[address] [place], [place] [address] Hemoglobin (Bld) [Mass/Vol] 7.9 g/dL Low 12.0-17.0 [facility] Comment on above: Performed By: #### L [id number] ####[facility] ([facility])[address] [place], [place] [address] IMMATURE PLATELET FRACTION % 11.2 % High 0.8-6.3 [facility] Comment on above: Performed By: #### L [id number] ####[facility] ([facility])[address] [place] [address] MCH (RBC) [Entitic mass] 29.0 pg Normal 27.0-33.0 [facility] Comment on above: Performed By: #### L [id number] ####[facility] ([facility])[address] [place] [address] MCV (RBC) [Entitic vol] 88.2 fL Normal 82.0-98.0 [facility] Comment on above: Performed By: #### L [id number] ####[facility] ([facility])[address] [place] [address] PLATELETS (10*3/UL) IN BLOOD AUTOMATED COUNT 130 10*3/uL Low 150-400 [facility] Comment on above: Performed By: #### L [id number] ####[facility] ([facility])[address] [place] [address] RBC (Bld) [#/Vol] 2.72 10*6/uL Low 3.80-5.70 [facility] Comment on above: Performed By: #### L [id number] ####[facility] ([facility])[address] [place] [address] WBC (Bld) [#/Vol] 6.34 10*3/uL Normal 4.00-10.60 [facility] Comment on above: Performed By: #### L [id number] ####[facility] ([facility])[address] [place] [address] CONSULTon 06-19-2025 CONSULT Normal [facility] FL UPPER GI WITH KUBon 06-19 FL UPPER GI WITH KUB Normal [facility] HEMOGLOBIN AND HEMATOCRIT, B LOODon 06-19-2025 Hematocrit (Bld) [Volume fraction] 26.6 % Low 36.0-50.0 [facility] Comment on above: Performed By: #### L [id number] ####[facility] ([facility])[address] [place] [address] Hemoglobin (Bld) [Mass/Vol] 8.9 g/dL Low 12.0-17.0 [facility] Comment on above: Performed By: #### L [id number] ####[facility] ([facility])[address] [place] [address] MAGNESIUMon 06-19-2025 Magnesium [Mass/Vol] 2.0 mg/dL Normal 1.9-2.7 [facility] Comment on above: Performed By: #### L [id number] ####[facility] ([facility])[address] [place] [address] NURSNOTEon 06-19-2025 NURSNOTE Normal [facility] PHOSPHORUSon 06-19-2025 Magnesium [Mass/Vol] 1.7 mg/dL Low 2.5-5.0 [facility] Comment on above: Performed By: #### L [id number] ####[facility] ([facility])[address] [place] [address] POCT GLUCOSE METER UNSOLICIT ED RESULTSon 06-19-2025 Glucose [Mass/Vol] 100 mg/dL Normal 70-105 [facility] Comment on above: Order Comment: Waive d Testing in the ED is performed under the ED CLIA certificate #[id number]. Result Comment: [email or web address] Performed By: #### L [id number] ####[facility] ([facility])[address] [place] [address] Glucose [Mass/Vol] 81 mg/dL Normal 70-105 [facility] Comment on above: Order Comment: Waive d Testing in the ED is performed under the ED CLIA certificate #[id number]. Result Comment: [email or web address] Performed By: #### L [id number] ####[facility] ([facility])[address] [place] [address] TRIGLYCERIDESon 06-19-2025 FASTING? unknown Normal [facility] Comment on above: Order Comment: Monit or triglycerides while patient is on propofol. Consult Nutrition if greater than 500 mg/dL. Performed By: #### L [id number] ####[facility] ([facility])[address] [place] [address] Magnesium [Mass/Vol] 115 mg/dL Normal <150 [facility] Comment on above: Order Comment: Monit or triglycerides while patient is on propofol. Consult Nutrition if greater than 500 mg/dL. Performed By: #### L [id number] ####[facility] ([facility])[address] [place] [address] TYPE AND SCREENon 06-19-2025 AB SCREEN Negative Normal [facility] Comment on above: Performed By: #### L [id number] ####[facility], ABO group Nom (Bld) A Normal [facility] Comment on above: Performed By: #### L [id number] ####[facility], RH TYPE IN BLOOD Negative Normal [facility] Comment on above: Performed By: #### L [id number] ####[facility], ABG UNSOLICITED RESULTSon A-ADO2 Normal [facility] Comment on above: Result Comment: C^In calculable Performed By: #### L [id number] ####[facility] [facility] RESPIRATORY [id number] [place] [address] [facility] Base excess Calc (Bld) [Moles/Vol] 1.3 mmol/L Normal -2.0-3.0 [facility] Comment on above: Performed By: #### L [id number] ####[facility]PIR[facility] [id number] [place] [address] [place] CO2 (Bld) [Partial pressure] 36 mm[Hg] Normal 35-45 [facility] Comment on above: Performed By: #### L [id number] ####[facility] RES[facility]IR[facility] [id number] [place] [address] [place] HCO3 (Bld) [Moles/Vol] 25.0 mmol/L Normal 21.0-28.0 [facility] Comment on above: Performed By: #### L [id number] ####[facility] RES[facility]IR[facility] [id number] [place] [address] [place] Oxygen (Bld) [Partial pressure] 82 mm[Hg] Low 83-108 [facility] Comment on above: Performed By: #### L [id number] ####[facility] RESPIR[facility] [id number] [place] [address] [place] OXYGEN LITERS PER MINUTE (LPM) IN BLOOD 1.0 LPM [facility] Comment on above: Performed By: #### L [id number] ####[facility] RES[facility] [id number] [place] [address] [facility] OXYGEN SATURATION (%) IN ARTERIAL BLOOD 98.7 % Normal 94.0-100.0 [facility] Comment on above: Performed By: #### L [id number] ####[facility] RES[facility]IR[facility] [id number] [place] [address] [facility] OXYGENATED HEMOGLOBIN IN ARTERIAL BLOOD 96.6 % Normal 94.0-97.0 [facility] Comment on above: Performed By: #### L [id number] ####[facility] RES[facility] [id number] [place] [address] [facility] PAO2/PAO2 Normal [facility] Comment on above: Result Comment: C^In calculable Performed By: #### L [id number] ####[facility] RESPIRAT[facility] [id number] [place] [address] [place] PF RATIO Normal [facility] Comment on above: Result Comment: C^In calculable Performed By: #### L [id number] ####[facility] RES[facility]IR[facility] [id number] [place] [address] [facility] PH OF ARTERIAL BLOOD 7.45 Normal 7.35-7.45 [facility] Comment on above: Performed By: #### L [id number] ####[facility] RESPIR[facility] [id number] [place] [address] [place] TEMPERATURE 37.0 ???C [facility] Comment on above: Performed By: #### L [id number] ####[facility] RES[facility] [id number] [place] [address] [place] ANESon 06-18-2025 ANES Normal [facility] BASIC METABOLIC PANELon 08-3 Anion gap [Moles/Vol] 9 mmol/L Normal 7-20 [facility] Comment on above: Performed By: #### L [id number] ####[facility] ([facility])[address] [place] [address] Calcium [Mass/Vol] 7.8 mg/dL Low 8.6-10.3 [facility] Comment on above: Performed By: #### L [id number] ####[facility] ([facility])[address] [place] [address] Chloride [Moles/Vol] 117 mmol/L High 98-107 [facility] Comment on above: Performed By: #### L [id number] ####[facility] ([facility])[address] [place] [address] CO2 [Moles/Vol] 22 mmol/L Normal 21-31 [facility] Comment on above: Performed By: #### L [id number] ####[facility] ([facility])[address] [place] [address] Creatinine [Mass/Vol] 0.80 mg/dL Normal 0.60-1.30 [facility] Comment on above: Performed By: #### L [id number] ####[facility] ([facility])[address] [place] [address] GLOMERULAR FILTRATION RATE ML/MIN/1.73 SQ M.PREDICTED 81.2 mL/min/1.73m*2 Normal >60.0 [facility] Comment on above: Result Comment: The [facility]???s estimated glomerular filtration rate (eGFR) will no longer include consideration of race in its calculation. The National Kidney Foundation???s eGFR Task Force developed new recommendations for the estimation of the glomerular filtration rate in the [place] They recommend immediate implementation of the new equation refit without the race variable in all laboratories because the calculation does not include race. In addition to not including race in the calculation and reporting, it included diversity in its development, and has acceptable performance characteristics and potential consequences that do not disproportionately affect any one group of individuals. Performed By: #### L [id number] ####[facility] ([facility])[address] [place] [address] Glucose [Mass/Vol] 137 mg/dL High 70-100 [facility] Comment on above: Performed By: #### L [id number] ####[facility] ([facility])[address] [place] [address] Potassium [Moles/Vol] 3.3 mmol/L Low 3.5-5.1 [facility] Comment on above: Performed By: #### L [id number] ####[facility] ([facility])[address] [place] [address] Sodium [Moles/Vol] 145 mmol/L Normal 136-145 [facility] Comment on above: Performed By: #### L [id number] ####[facility] ([facility])[address] [place] [address] Urea nitrogen [Mass/Vol] 30 mg/dL High 7-25 [facility] Comment on above: Performed By: #### L [id number] ####[facility] ([facility])[address] [place] [address] UREA NITROGEN/CREATININE (MASS RATIO) IN SER/PLAS 37.5 Normal [facility] Comment on above: Performed By: #### L [id number] ####[facility] ([facility])[address] [place] [address] Anion gap [Moles/Vol] 8 mmol/L Normal 7-20 [facility] Comment on above: Performed By: #### L [id number] ####[facility] ([facility])[address] [place] [address] Calcium [Mass/Vol] 7.8 mg/dL Low 8.6-10.3 [facility] Comment on above: Performed By: #### L [id number] ####[facility] ([facility])[address] [place] [address] Chloride [Moles/Vol] 117 mmol/L High 98-107 [facility] Comment on above: Performed By: #### L [id number] ####[facility] ([facility])[address] [place] [address] CO2 [Moles/Vol] 22 mmol/L Normal 21-31 [facility] Comment on above: Performed By: #### L [id number] ####[facility] ([facility])[address] [place] [address] Creatinine [Mass/Vol] 0.86 mg/dL Normal 0.60-1.30 [facility] Comment on above: Performed By: #### L [id number] ####[facility] ([facility])[address] [place] [address] GLOMERULAR FILTRATION RATE ML/MIN/1.73 SQ M.PREDICTED 74.5 mL/min/1.73m*2 Normal >60.0 [facility] Comment on above: Result Comment: The [facility]???s estimated glomerular filtration rate (eGFR) will no longer include consideration of race in its calculation. The National Kidney Foundation???s eGFR Task Force developed new recommendations for the estimation of the glomerular filtration rate in the [place] They recommend immediate implementation of the new equation refit without the race variable in all laboratories because the calculation does not include race. In addition to not including race in the calculation and reporting, it included diversity in its development, and has acceptable performance characteristics and potential consequences that do not disproportionately affect any one group of individuals. Performed By: #### L [id number] ####[facility] ([facility])[address] [place] [address] Glucose [Mass/Vol] 147 mg/dL High 70-100 [facility] Comment on above: Performed By: #### L [id number] ####[facility] ([facility])[address] [place] [address] Potassium [Moles/Vol] 3.3 mmol/L Low 3.5-5.1 [facility] Comment on above: Performed By: #### L [id number] ####[facility] ([facility])[address] [place] [address] Sodium [Moles/Vol] 144 mmol/L Normal 136-145 [facility] Comment on above: Performed By: #### L [id number] ####[facility] ([facility])[address] [place] [address] Urea nitrogen [Mass/Vol] 31 mg/dL High 7-25 [facility] Comment on above: Performed By: #### L [id number] ####[facility] ([facility])[address] [place] [address] UREA NITROGEN/CREATININE (MASS RATIO) IN SER/PLAS 36.0 Normal [facility] Comment on above: Performed By: #### L [id number] ####[facility] ([facility])[address] [place] [address] CBCon 06-18-2025 Erythrocyte distribution width (RBC) [Ratio] 15.5 % High 11.5-15.0 [facility] Comment on above: Performed By: #### L [id number] ####[facility] ([facility])[address] [place] [address] ERYTHROCYTE MEAN CORPUSCULAR HEMOGLOBIN CONCENTRATION (G/DL) BY AUTOMATED 33.5 g/dL Normal 32.0-35.0 [facility] Comment on above: Performed By: #### L [id number] ####[facility] ([facility])[address] [place] [address] Hematocrit (Bld) [Volume fraction] 26.3 % Low 36.0-50.0 [facility] Comment on above: Performed By: #### L [id number] ####[facility] ([facility])[address] [place] [address] Hemoglobin (Bld) [Mass/Vol] 8.8 g/dL Low 12.0-17.0 [facility] Comment on above: Performed By: #### L [id number] ####[facility] ([facility])[address] [place] [address] MCH (RBC) [Entitic mass] 29.0 pg Normal 27.0-33.0 [facility] Comment on above: Performed By: #### L [id number] ####[facility] ([facility])[address] [place] [address] MCV (RBC) [Entitic vol] 86.8 fL Normal 82.0-98.0 [facility] Comment on above: Performed By: #### L [id number] ####[facility] ([facility])[address] [place] [address] PLATELETS (10*3/UL) IN BLOOD AUTOMATED COUNT 131 10*3/uL Low 150-400 [facility] Comment on above: Performed By: #### L [id number] ####[facility] ([facility])[address] [place] [address] RBC (Bld) [#/Vol] 3.03 10*6/uL Low 3.80-5.70 [facility] Comment on above: Performed By: #### L [id number] ####[facility] ([facility])[address] [place], [place] [address] WBC (Bld) [#/Vol] 9.69 10*3/uL Normal 4.00-10.60 [facility] Comment on above: Performed By: #### L [id number] ####[facility] ([facility])[address] [place], [place] [address] HEMOGLOBIN AND HEMATOCRIT, B LOODon 06-18-2025 Hematocrit (Bld) [Volume fraction] 24.4 % Low 36.0-50.0 [facility] Comment on above: Performed By: #### L [id number] ####[facility] ([facility])[address] [place], [place] [address] Hemoglobin (Bld) [Mass/Vol] 8.0 g/dL Low 12.0-17.0 [facility] Comment on above: Performed By: #### L [id number] ####[facility] ([facility])[address] [place], [place] [address] Hematocrit (Bld) [Volume fraction] 26.1 % Low 36.0-50.0 [facility] Comment on above: Performed By: #### L [id number] ####[facility] ([facility])[address] [place] [address] Hemoglobin (Bld) [Mass/Vol] 8.6 g/dL Low 12.0-17.0 [facility] Comment on above: Performed By: #### L [id number] ####[facility] ([facility])[address] [place] [address] Hematocrit (Bld) [Volume fraction] 25.8 % Low 36.0-50.0 [facility] Comment on above: Performed By: #### L [id number] ####[facility] ([facility])[address] [place] [address] Hemoglobin (Bld) [Mass/Vol] 9.0 g/dL Low 12.0-17.0 [facility] Comment on above: Performed By: #### L [id number] ####[facility] ([facility])[address] [place] [address] MAGNESIUMon 06-18-2025 Magnesium [Mass/Vol] 2.2 mg/dL Normal 1.9-2.7 [facility] Comment on above: Performed By: #### L [id number] ####[facility] ([facility])[address] [place] [address] PHOSPHORUSon 06-18-2025 Magnesium [Mass/Vol] 2.0 mg/dL Low 2.5-5.0 [facility] Comment on above: Performed By: #### L [id number] ####[facility] ([facility])[address] [place] [address] POCT GLUCOSE METER UNSOLICIT ED RESULTSon 06-18-2025 Glucose [Mass/Vol] 92 mg/dL Normal 70-105 [facility] Comment on above: Order Comment: Waive d Testing in the ED is performed under the ED CLIA certificate #[id number]. Result Comment: rajwinder naw2 Performed By: #### L [id number] ####[facility] ([facility])[address] [place] [address] Glucose [Mass/Vol] 102 mg/dL Normal 70-105 [facility] Comment on above: Order Comment: Waive d Testing in the ED is performed under the ED CLIA certificate #[id number]. Result Comment: vabu naw2 Performed By: #### L [id number] ####[facility] ([facility])[address] [place] [address] Glucose [Mass/Vol] 137 mg/dL High 70-105 [facility] Comment on above: Order Comment: Waive d Testing in the ED is performed under the ED CLIA certificate #[id number]. Result Comment: mmol den3 Performed By: #### L [id number] ####[facility] ([facility])[address] [place] [address] Glucose [Mass/Vol] 137 mg/dL High 70-105 [facility] Comment on above: Order Comment: Waive d Testing in the ED is performed under the ED CLIA certificate #[id number]. Result Comment: mmol den3 Performed By: #### L [id number] ####[facility] ([facility])[address] [place] [address] Glucose [Mass/Vol] 81 mg/dL Normal 70-105 [facility] Comment on above: Order Comment: Waive d Testing in the ED is performed under the ED CLIA certificate #[id number]. Result Comment: mmol den3 Performed By: #### L [id number] ####[facility] ([facility])[address] [place] [address] 30on 06-17-2025 30 Normal [facility] ABG COMPLETE UNSOLICITED RES ULTSon 06-17-2025 A-ADO2 173 mmHg Normal [facility] Comment on above: Performed By: #### L [id number] ####[facility] [id number] [place] [address] [place] Base excess Calc (Bld) [Moles/Vol] -4.6000 mmol/L Low -2.0-3.0 [facility] Comment on above: Performed By: #### L [id number] ####[facility] [id number] [place] [address] [facility] CALCIUM IONIZED, ARTERIAL 1.17 mmol/L Normal 1.13-1.32 [facility] Comment on above: Performed By: #### L [id number] ####[facility] [id number] [place] [address] [facility] CARBOXYHEMOGLOBIN, ARTERIAL 1.8 % Normal [facility] Comment on above: Performed By: #### L [id number] ####[facility] [id number] [place] [address] [facility] Chloride [Moles/Vol] 117 mmol/L High 98-107 [facility] Comment on above: Performed By: #### L [id number] ####[facility] [id number] [place] [address] [facility] CO2 (Bld) [Partial pressure] 36 mm[Hg] Normal 35-45 [facility] Comment on above: Performed By: #### L [id number] ####[facility] [id number] [place] [address] [facility] DEOXYGENATED HEMOGLOBIN, ARTERIAL 0.0 % Normal [facility] Comment on above: Performed By: #### L [id number] ####[facility] [id number] [place] [address] [facility] FIO2 50.0 % Normal [facility] Comment on above: Performed By: #### L [id number] ####[facility] [id number] [place] [address] [facility] Glucose [Mass/Vol] 120 mg/dL High 65-95 [facility] Comment on above: Performed By: #### L [id number] ####[facility] [id number] [place] [address] [facility] HCO3 (Bld) [Moles/Vol] 20.3 mmol/L Low 21.0-28.0 [facility] Comment on above: Performed By: #### L [id number] ####[facility] [id number] [place] [address] [facility] Hematocrit (Bld) [Volume fraction] 29 % Low 37-50 [facility] Comment on above: Performed By: #### L [id number] ####[facility] [id number] [place] [address] [place] Hemoglobin (Bld) [Mass/Vol] 9.6 g/dL Normal [facility] Comment on above: Performed By: #### L [id number] ####[facility] [id number] [place] [address] [facility] LACTATE, ARTERIAL 0.80 mmol/L Normal 0.36-1.39 [facility] Comment on above: Performed By: #### L [id number] ####[facility] [id number] [place] [address] [facility] METHEMOGLOBIN, ARTERIAL 0.6 % Normal 0.0-1.5 [facility] Comment on above: Performed By: #### L [id number] ####[facility] [id number] [place] [address] [facility] Oxygen (Bld) [Partial pressure] 139 mm[Hg] High 83-108 [facility] Comment on above: Performed By: #### L [id number] ####[facility] [id number] [place] [address] [facility] OXYGEN SATURATION (%) IN ARTERIAL BLOOD 100.0 % Normal 94.0-100.0 [facility] Comment on above: Performed By: #### L [id number] ####[facility] [id number] [place] [address] [place] OXYGENATED HEMOGLOBIN IN ARTERIAL BLOOD 97.7 % High 94.0-97.0 [facility] Comment on above: Performed By: #### L [id number] ####[facility] [id number] [place] [address] [place] PAO2/PAO2 0.45 mmHg Normal [facility] Comment on above: Performed By: #### L [id number] ####[facility] [id number] [place] [address] [place] PEEP 8 cm H2O Normal [facility] Comment on above: Performed By: #### L [id number] ####[facility] [id number] [address] [place] [address] [facility] PF RATIO 278 mmHg Normal [facility] Comment on above: Performed By: #### L [id number] ####[facility] [id number] [place] [address] [facility] PH OF ARTERIAL BLOOD 7.36 Normal 7.35-7.45 [facility] Comment on above: Performed By: #### L [id number] ####[facility] [id number] [place] [address] [facility] Potassium [Moles/Vol] 3.2 mmol/L Low 3.4-5.2 [facility] Comment on above: Performed By: #### L [id number] ####[facility] [id number] [place] [address] [facility] Sodium [Moles/Vol] 144 mmol/L Normal 136-146 [facility] Comment on above: Performed By: #### L [id number] ####[facility] [id number] [place] [address] [facility] TEMPERATURE 37.0 ???C Normal [facility] Comment on above: Performed By: #### L [id number] ####[facility] [id number] [place] [address] [facility] TOTAL MINUTE VOLUME 9.9 L Normal [facility] Comment on above: Performed By: #### L [id number] ####[facility] [id number] [place] [address] [facility] A-ADO2 Normal [facility] Comment on above: Result Comment: C^In calculable Performed By: #### L [id number] ####[facility] [id number] [place] [address] [facility] Base excess Calc (Bld) [Moles/Vol] -4.7000 mmol/L Low -2.0-3.0 [facility] Comment on above: Performed By: #### L [id number] ####[facility] [id number] [address] CALCIUM IONIZED, ARTERIAL 1.15 mmol/L Normal 1.13-1.32 [facility] Comment on above: Performed By: #### L [id number] ####[facility] [id number] [place], [place] [address] CARBOXYHEMOGLOBIN, ARTERIAL 1.8 % Normal [facility] Comment on above: Performed By: #### L [id number] ####[facility] [id number] [place] [address] [facility] Chloride [Moles/Vol] 119 mmol/L High 98-107 [facility] Comment on above: Performed By: #### L [id number] ####[facility] [id number] [place], [place] [address] CO2 (Bld) [Partial pressure] 37 mm[Hg] Normal 35-45 [facility] Comment on above: Performed By: #### L [id number] ####[facility] [id number] [place], [place] [address] DEOXYGENATED HEMOGLOBIN, ARTERIAL 0.1 % Normal [facility] Comment on above: Performed By: #### L [id number] ####[facility] [id number] [place] [address] [facility] Glucose [Mass/Vol] 118 mg/dL High 65-95 [facility] Comment on above: Performed By: #### L [id number] ####[facility] [id number] [place] [address] [facility] HCO3 (Bld) [Moles/Vol] 20.4 mmol/L Low 21.0-28.0 [facility] Comment on above: Performed By: #### L [id number] ####[facility] [id number] [place] [address] [facility] Hematocrit (Bld) [Volume fraction] 28 % Low 37-50 [facility] Comment on above: Performed By: #### L [id number] ####[facility] [id number] [place] [address] [place] Hemoglobin (Bld) [Mass/Vol] 9.4 g/dL Normal [facility] Comment on above: Performed By: #### L [id number] ####[facility] [id number] [place] [address] [place] LACTATE, ARTERIAL 0.70 mmol/L Normal 0.36-1.39 [facility] Comment on above: Performed By: #### L [id number] ####[facility] [id number] [place] [address] [facility] METHEMOGLOBIN, ARTERIAL 0.8 % Normal 0.0-1.5 [facility] Comment on above: Performed By: #### L [id number] ####[facility] [id number] [place] [address] [facility] Oxygen (Bld) [Partial pressure] 202 mm[Hg] High 83-108 [facility] Comment on above: Performed By: #### L [id number] ####[facility] [id number] [place] [address] [facility] OXYGEN SATURATION (%) IN ARTERIAL BLOOD 99.9 % Normal 94.0-100.0 [facility] Comment on above: Performed By: #### L [id number] ####[facility] [id number] [place] [address] [facility] OXYGENATED HEMOGLOBIN IN ARTERIAL BLOOD 97.3 % High 94.0-97.0 [facility] Comment on above: Performed By: #### L [id number] ####[facility] [id number] [place] [address] [place] PAO2/PAO2 Normal [facility] Comment on above: Result Comment: C^In calculable Performed By: #### L [id number] ####[facility] RESPIRATORY [id number] [place] [address] [place] PF RATIO Normal [facility] Comment on above: Result Comment: C^In calculable Performed By: #### L [id number] ####[facility] RESPIRATORY [id number] [place] [address] [facility] PH OF ARTERIAL BLOOD 7.35 Normal 7.35-7.45 [facility] Comment on above: Performed By: #### L [id number] ####[facility] RESPIRATORY [id number] [place] [address] [facility] Potassium [Moles/Vol] 3.1 mmol/L Low 3.4-5.2 [facility] Comment on above: Performed By: #### L [id number] ####[facility] RESPIRATORY [id number] [place] [address] [facility] Sodium [Moles/Vol] 142 mmol/L Normal 136-146 [facility] Comment on above: Performed By: #### L [id number] ####[facility] RESPIRATORY [id number] [place] [address] [facility] TEMPERATURE 37.0 ???C [facility] Comment on above: Performed By: #### L [id number] ####[facility] RESPIRATORY [id number] [place] [address] [facility] ANESon 06-17-2025 ANES [facility] BASIC METABOLIC PANELon 08 Anion gap [Moles/Vol] 11 mmol/L Normal 7-20 [facility] Comment on above: Performed By: #### L [id number] ####[facility] HOSPITAL LAB (BEAKER)[id number] [place] [address] Calcium [Mass/Vol] 7.4 mg/dL Low 8.6-10.3 [facility] Comment on above: Performed By: #### L [id number] ####[facility] (BEAKER)[address] [place] [address] Chloride [Moles/Vol] 117 mmol/L High 98-107 [facility] Comment on above: Performed By: #### L [id number] ####[facility] (BEAKER)[address] [place] [address] CO2 [Moles/Vol] 20 mmol/L Low 21-31 [facility] Comment on above: Performed By: #### L [id number] ####[facility] ([facility]AKER)[address] [place] [address] Creatinine [Mass/Vol] 0.89 mg/dL Normal 0.60-1.30 [facility] Comment on above: Performed By: #### L [id number] ####[facility] ([facility])[address] [place] [address] GLOMERULAR FILTRATION RATE ML/MIN/1.73 SQ M.PREDICTED 71.5 mL/min/1.73m*2 Normal >60.0 [facility] Comment on above: Result Comment: The [facility]???s estimated glomerular filtration rate (eGFR) will no longer include consideration of race in its calculation. The National Kidney Foundation???s eGFR Task Force developed new recommendations for the estimation of the glomerular filtration rate in the [place] They recommend immediate implementation of the new equation refit without the race variable in all laboratories because the calculation does not include race. In addition to not including race in the calculation and reporting, it included diversity in its development, and has acceptable performance characteristics and potential consequences that do not disproportionately affect any one group of individuals. Performed By: #### L [id number] ####[facility] ([facility])[address] [place] [address] Glucose [Mass/Vol] 167 mg/dL High 70-100 [facility] Comment on above: Performed By: #### L [id number] ####[facility] ([facility])[address] [place] [address] Potassium [Moles/Vol] 3.2 mmol/L Low 3.5-5.1 [facility] Comment on above: Performed By: #### L [id number] ####[facility] ([facility])[address] [facility] [address] Sodium [Moles/Vol] 145 mmol/L Normal 136-145 [facility] Comment on above: Performed By: #### L [id number] ####[facility] ([facility])[address] [place] [address] Urea nitrogen [Mass/Vol] 32 mg/dL High 7-25 [facility] Comment on above: Performed By: #### L [id number] ####[facility] ([facility]ER)[address] [place] [address] UREA NITROGEN/CREATININE (MASS RATIO) IN SER/PLAS 36.0 Normal [facility] Comment on above: Performed By: #### L [id number] ####[facility] (BEAKER)[address] [place] [address] Anion gap [Moles/Vol] 10 mmol/L Normal 7-20 [facility] Comment on above: Performed By: #### L [id number] ####[facility] (BEAKER)[address] [place] [address] Calcium [Mass/Vol] 7.5 mg/dL Low 8.6-10.3 [facility] Comment on above: Performed By: #### L [id number] ####[facility] (BEAKER)[address] [place] [address] Chloride [Moles/Vol] 118 mmol/L High 98-107 [facility] Comment on above: Performed By: #### L [id number] ####[facility] (BEAKER)[address] [place] [address] CO2 [Moles/Vol] 21 mmol/L Normal 21-31 [facility] Comment on above: Performed By: #### L [id number] ####[facility] (BEAKER)[address] [place] [address] Creatinine [Mass/Vol] 0.90 mg/dL Normal 0.60-1.30 [facility] Comment on above: Performed By: #### L [id number] ####[facility] (BEAKER)[address] [place] [address] GLOMERULAR FILTRATION RATE ML/MIN/1.73 SQ M.PREDICTED 70.5 mL/min/1.73m*2 Normal >60.0 [facility] Comment on above: Result Comment: The [facility]???s estimated glomerular filtration rate (eGFR) will no longer include consideration of race in its calculation. The National Kidney Foundation???s eGFR Task Force developed new recommendations for the estimation of the glomerular filtration rate in the [place] They recommend immediate implementation of the new equation refit without the race variable in all laboratories because the calculation does not include race. In addition to not including race in the calculation and reporting, it included diversity in its development, and has acceptable performance characteristics and potential consequences that do not disproportionately affect any one group of individuals. Performed By: #### L [id number] ####[facility] ([facility])[address] [place] [address] Glucose [Mass/Vol] 152 mg/dL High 70-100 [facility] Comment on above: Performed By: #### L [id number] ####[facility] ([facility])[address] [place] [address] Potassium [Moles/Vol] 3.9 mmol/L Normal 3.5-5.1 [facility] Comment on above: Performed By: #### L [id number] ####[facility] ([facility])[address] [place] [address] Sodium [Moles/Vol] 145 mmol/L Normal 136-145 [facility] Comment on above: Performed By: #### L [id number] ####[facility] ([facility])[address] [place] [address] Urea nitrogen [Mass/Vol] 33 mg/dL High 7-25 [facility] Comment on above: Performed By: #### L [id number] ####[facility] ([facility])[address] [place] [address] UREA NITROGEN/CREATININE (MASS RATIO) IN SER/PLAS 36.7 Normal [facility] Comment on above: Performed By: #### L [id number] ####[facility] ([facility])[address] [place] [address] Anion gap [Moles/Vol] 9 mmol/L Normal 7-20 [facility] Comment on above: Performed By: #### L [id number] ####[facility] ([facility])[address] [place] [address] Calcium [Mass/Vol] 7.6 mg/dL Low 8.6-10.3 [facility] Comment on above: Performed By: #### L [id number] ####[facility] ([facility])[address] [place] [address] Chloride [Moles/Vol] 119 mmol/L High 98-107 [facility] Comment on above: Performed By: #### L [id number] ####[facility] ([facility])[address] [place] [address] CO2 [Moles/Vol] 20 mmol/L Low 21-31 [facility] Comment on above: Performed By: #### L [id number] ####[facility] ([facility])[address] [place] [address] Creatinine [Mass/Vol] 0.78 mg/dL Normal 0.60-1.30 [facility] Comment on above: Performed By: #### L [id number] ####[facility] ([facility])[address] [place] [address] GLOMERULAR FILTRATION RATE ML/MIN/1.73 SQ M.PREDICTED 83.7 mL/min/1.73m*2 Normal >60.0 [facility] Comment on above: Result Comment: The [facility]???s estimated glomerular filtration rate (eGFR) will no longer include consideration of race in its calculation. The National Kidney Foundation???s eGFR Task Force developed new recommendations for the estimation of the glomerular filtration rate in the [place] They recommend immediate implementation of the new equation refit without the race variable in all laboratories because the calculation does not include race. In addition to not including race in the calculation and reporting, it included diversity in its development, and has acceptable performance characteristics and potential consequences that do not disproportionately affect any one group of individuals. Performed By: #### L [id number] ####[facility] ([facility])[address] [place] [address] Glucose [Mass/Vol] 128 mg/dL High 70-100 [facility] Comment on above: Performed By: #### L [id number] ####[facility] ([facility])[address] [place] [address] Potassium [Moles/Vol] 3.3 mmol/L Low 3.5-5.1 [facility] Comment on above: Performed By: #### L [id number] ####[facility] ([facility])[address] [place] [address] Sodium [Moles/Vol] 145 mmol/L Normal 136-145 [facility] Comment on above: Performed By: #### L [id number] ####[facility] ([facility])[address] [place] [address] Urea nitrogen [Mass/Vol] 35 mg/dL High 7-25 [facility] Comment on above: Performed By: #### L [id number] ####[facility] ([facility])[address] [place] [address] UREA NITROGEN/CREATININE (MASS RATIO) IN SER/PLAS 44.9 Normal [facility] Comment on above: Performed By: #### L [id number] ####[facility] ([facility])[address] [place] [address] BLOOD CULTUREon 06-17-2025 Bacteria identified Cx Nom (Bld) No growth at 5 days [facility] Comment on above: Order Comment: From a different site than #1. Performed By: #### L [id number] ####[facility] ([facility])[address] [place], [place] [address] Bacteria identified Cx Nom (Bld) No growth at 5 days Normal [facility] Comment on above: Performed By: #### L [id number] ####[facility] ([facility])[address] [place] [address] CBC WITH AUTO DIFFERENTIALon 06-17-2025 Basophils (Bld) [#/Vol] 0.02 10*3/uL Normal 0.00-0.20 [facility] Comment on above: Performed By: #### L [id number] ####[facility] ([facility])[address] [place] [address] Basophils/100 WBC (Bld) 0.2 % Normal 0.0-1.0 [facility] Comment on above: Performed By: #### L [id number] ####[facility] (BEAKER)[address] [place] [address] Eosinophils (Bld) [#/Vol] 0.01 10*3/uL Normal 0.00-0.50 [facility] Comment on above: Performed By: #### L [id number] ####[facility] ([facility])[address] [place] [address] Eosinophils/100 WBC (Bld) 0.1 % Normal 0.0-6.0 [facility] Comment on above: Performed By: #### L [id number] ####[facility] ([facility])[address] [place] [address] Erythrocyte distribution width (RBC) [Ratio] 15.0 % Normal 11.5-15.0 [facility] Comment on above: Performed By: #### L [id number] ####[facility] ([facility])[address] [place] [address] ERYTHROCYTE MEAN CORPUSCULAR HEMOGLOBIN CONCENTRATION (G/DL) BY AUTOMATED 33.6 g/dL Normal 32.0-35.0 [facility] Comment on above: Performed By: #### L [id number] ####[facility] (BE[facility])[address] [place] [address] Hematocrit (Bld) [Volume fraction] 30.1 % Low 36.0-50.0 [facility] Comment on above: Performed By: #### L [id number] ####[facility] ([facility])[address] [place] [address] Hemoglobin (Bld) [Mass/Vol] 10.1 g/dL Low 12.0-17.0 [facility] Comment on above: Performed By: #### L [id number] ####[facility] (BE[facility])[address] [place] [address] Immature granulocytes (Bld) [#/Vol] 0.04 10*3/uL Normal 0.00-0.20 [facility] Comment on above: Performed By: #### L [id number] ####[facility] ([facility])[address] [place] [address] Immature granulocytes/100 WBC (Bld) 0.4 % Normal 0.0-1.0 [facility] Comment on above: Performed By: #### L [id number] ####[facility] ([facility])[address] [place] [address] Lymphocytes (Bld) [#/Vol] 0.98 10*3/uL Low 1.20-4.00 [facility] Comment on above: Performed By: #### L [id number] ####[facility] ([facility])[address] [place] [address] Lymphocytes/100 WBC (Bld) 10.8 % Low 20.0-45.0 [facility] Comment on above: Performed By: #### L [id number] ####[facility] ([facility])[address] [place] [address] MCH (RBC) [Entitic mass] 29.4 pg Normal 27.0-33.0 [facility] Comment on above: Performed By: #### L [id number] ####[facility] ([facility])[address] [place] [address] MCV (RBC) [Entitic vol] 87.5 fL Normal 82.0-98.0 [facility] Comment on above: Performed By: #### L [id number] ####[facility] ([facility])[address] [place] [address] Monocytes (Bld) [#/Vol] 0.50 10*3/uL Normal 0.10-1.00 [facility] Comment on above: Performed By: #### L [id number] ####[facility] ([facility])[address] [place] [address] Monocytes/100 WBC (Bld) 5.5 % Normal 5.0-12.0 [facility] Comment on above: Performed By: #### L [id number] ####[facility] ([facility])[address] [place] [address] Neutrophils (Bld) [#/Vol] 7.50 10*3/uL Normal 1.60-7.60 [facility] Comment on above: Performed By: #### L [id number] ####[facility] ([facility])[address] [place] [address] Neutrophils/100 WBC (Bld) 83.0 % High 40.0-72.0 [facility] Comment on above: Performed By: #### L [id number] ####[facility] ([facility])[address] [place] [address] NRBC (PER 100 WBCS) BY AUTOMATED COUNT 0.0 % Normal 0 [facility] Comment on above: Performed By: #### L [id number] ####[facility] ([facility])[address] [place] [address] PLATELETS (10*3/UL) IN BLOOD AUTOMATED COUNT 141 10*3/uL Low 150-400 [facility] Comment on above: Performed By: #### L [id number] ####[facility] ([facility])[address] [place] [address] RBC (Bld) [#/Vol] 3.44 10*6/uL Low 3.80-5.70 [facility] Comment on above: Performed By: #### L [id number] ####[facility] ([facility])[address] [place] [address] WBC (Bld) [#/Vol] 9.05 10*3/uL Normal 4.00-10.60 [facility] Comment on above: Performed By: #### L [id number] ####[facility] ([facility])[address] [place] [address] EXTEM Con 06-17-2025 EXTEM C A10 60 mm Normal 45-62 [facility] Comment on above: Performed By: #### E XTEM C ####[facility] [id number] [place] [address] [place] EXTEM C A20 67 mm Normal 54-69 [facility] Comment on above: Performed By: #### E XTEM C ####[facility] [id number] [place] [address] [place] EXTEM C A5 49 mm Normal 33-52 [facility] Comment on above: Performed By: #### E XTEM C ####[facility] [id number] [place] [address] 53 s Normal 51-73 [facility] Comment on above: Performed By: #### E XTEM C ####[facility] [id number] [place] [address] [facility] EXTEM C LI60 98 % Normal 94-100 [facility] Comment on above: Performed By: #### E XTEM C ####[facility] [id number] [place] [address] [place] EXTEM C MCF 69 mm Normal 57-72 [facility] Comment on above: Performed By: #### E XTEM C ####[facility] [id number] [place] [address] [place] EXTEM C ML 7 % High 0-6 [facility] Comment on above: Result Comment: MI^P reliminary Result Performed By: #### E XTEM C ####[facility] [id number] [place] [address] [facility] FIBTEM Con 06-17-2025 FIBTEM C A10 19 mm High 6-17 [facility] Comment on above: Performed By: #### F IBTEM C ####[facility] RES[facility] [id number] [place] [address] [place] FIBTEM C A20 20 mm High 6-18 [facility] Comment on above: Performed By: #### F IBTEM C ####[facility] RES[facility] [id number] [place] [address] [facility] FIBTEM C A5 17 mm High 5-16 [facility] Comment on above: Performed By: #### F IBTEM C ####[facility] RES[facility] [id number] [place] [address] [place] FIBTEM C MCF 21 mm High 6-19 [facility] Comment on above: Performed By: #### F IBTEM C ####[facility] RES[facility] [id number] [place] [address] [place] HEMOGLOBIN AND HEMATOCRIT, B LOODon 06-17-2025 Hematocrit (Bld) [Volume fraction] 28.1 % Low 36.0-50.0 [facility] Comment on above: Performed By: #### L [id number] ####[facility] ([facility])[address] [place] [address] Hemoglobin (Bld) [Mass/Vol] 9.5 g/dL Low 12.0-17.0 [facility] Comment on above: Performed By: #### L [id number] ####[facility] ([facility])[address] [place] [address] HEPATIC FUNCTION PANELon Albumin [Mass/Vol] 3.0 g/dL Low 3.5-5.7 [facility] Comment on above: Performed By: #### L [id number] ####[facility] (BE[facility])[address] [place] [address] ALP [Catalytic activity/Vol] 64 U/L Normal 34-104 [facility] Comment on above: Performed By: #### L [id number] ####[facility] ([facility])[address] [place] [address] ALT [Catalytic activity/Vol] 4 U/L Low 7-52 [facility] Comment on above: Performed By: #### L [id number] ####[facility] ([facility])[address] [place] [address] AST [Catalytic activity/Vol] 8 U/L Low 13-39 [facility] Comment on above: Performed By: #### L [id number] ####[facility] ([facility])[address] [place] [address] Bilirubin [Mass/Vol] 0.8 mg/dL Normal 0.3-1.0 [facility] Comment on above: Performed By: #### L [id number] ####[facility] ([facility])[address] [place] [address] Magnesium [Mass/Vol] 0.2 mg/dL Normal 0-0.2 [facility] Comment on above: Performed By: #### L [id number] ####[facility] ([facility])[address] [place] [address] Protein [Mass/Vol] 5.2 g/dL Low 6.0-8.3 [facility] Comment on above: Performed By: #### L [id number] ####[facility] ([facility])[address] [place] [address] HEPTEM Con 06-17-2025 HEPTEM C A10 56 mm Normal 44-61 [facility] Comment on above: Performed By: #### H EPTEM C ####[facility] RES[facility]IR[facility] [id number] [place] [address] [facility] HEPTEM C A20 63 mm Normal 52-67 [facility] Comment on above: Performed By: #### H EPTEM C ####[facility] RES[facility] [id number] [place] [address] [facility] HEPTEM C A5 46 mm Normal 33-51 [facility] Comment on above: Performed By: #### H EPTEM C ####[facility] RES[facility] [id number] [place] [address] [facility] HEPTEM C CT 163 s Normal 141-215 [facility] Comment on above: Performed By: #### H EPTEM C ####[facility] RES[facility] [id number] [place] [address] [facility] HEPTEM C MCF 64 mm Normal 54-69 [facility] Comment on above: Performed By: #### H EPTEM C ####[facility] RES[facility] [id number] [place] [address] [facility] HISTOLOGY - TISSUE EXAMon LAB AP CASE REPORT Normal [facility] Comment on above: Order Comment: Pre-o p diagnosis:Hematemesis, unspecified whether nausea present [K92.0]Marginal ulcer [K28.9] Result Comment: Surg ical Pathology Case: [id number] Provider: Roberth Luis MD Collected: 06/17/2025 0017Ordering Location: [facility] Main Operating Room Received: 06/20/2025 0833Pathologist: DANIEL Drewpecimens: A) - Gastric, Gastrojejunostomy B) - Gastric, KENAN Performed By: #### L [id number] ####[facility] (BEAK[facility])[address] [place] [address] LAB AP CLINICAL INFORMATION Normal [facility] Comment on above: Order Comment: Pre-o p diagnosis:Hematemesis, unspecified whether nausea present [K92.0]Marginal ulcer [K28.9] Result Comment: Post -Op [id number] - Hematemesis, unspecified whether nausea present [ICD-10-CM]K28.9 - Marginal ulcer [ICD-10-CM] Performed By: #### L [id number] ####[facility] (BE[facility]ER)[address] [place] [address] LAB AP GROSS DESCRIPTION A. Gastric. Normal [facility] Comment on above: Order Comment: Pre-o p diagnosis:Hematemesis, unspecified whether nausea present [K92.0]Marginal ulcer [K28.9] Result Comment: The specimen is received in formalin labeled Alisia Correa and Gastrojejunostomy. It consists 10.0 x 5.0 x 4.0 cm distorted gastrojejunostomy specimen. One end is blunted and sac-like/ out-pouched and the opposing end is closed with a line of silver metallic maría elena. There is a 6.5 x 3.5 cm transmural defect with partially cauterized and partially rolled/ eroded edges, possibly representing ulceration, 4 cm from the stapled margin. There is a central slightly tapered area, 3.0 cm in diameter with flattened dull mucosa; although the this area is depressed with underlying fibrotic cut surfaces, no embedded maría elena or definitive anastomotic line is identified. The rim surrounding the transmural defect/ possible resection margin is inked black and the serosa is inked blue. The serosa is austin-pink and smooth; the mucosa is focally heaped up and glistening with dull plaque-like areas surrounding the transmural defect. Gross photographs are taken and franchise sales representative sections are submitted as follows:A1-A3: Fibrotic central areaA4: Defect, outpouched endA5: DefectA6: Jejunal margin, en facePeace Ramires Pathologists' Maintenance And Operations Supervisor studentKatharina Perez Pathologists' AssistantB. Gastric.The specimen is received in formalin labeled Alisia L Weyer and KENAN. It consists of a 14.3 x 10.2 cm unoriented portion of small bowel received with 2 stapled margins and scant attached adipose tissue. The serosal surface is austin-pink and smooth; the mucosa is austin-pink, folded, and glistening. No lymph nodes are identified. Railway Signal Operator sections are submitted in 3 cassettes with the margins in B1-B2.Peace Ramires, Pathologists' Maintenance And Operations Supervisor student Performed By: #### L [id number] ####[facility] ([facility])[address] [place] [address] LAB AP MICROSCOPIC DESCRIPTION Microscopic examination performed. Normal [facility] Comment on above: Order Comment: Pre-o p diagnosis:Hematemesis, unspecified whether nausea present [K92.0]Marginal ulcer [K28.9] Performed By: #### L [id number] ####[facility] ([facility])[address] [place] [address] LAB AP REPORT FINAL DIAGNOSIS NARRATIVE Normal [facility] Comment on above: Order Comment: Pre-o p diagnosis:Hematemesis, unspecified whether nausea present [K92.0]Marginal ulcer [K28.9] Result Comment: A. L abeled gastrojejunostomy :Ulcerated small bowel with acute serositis and fibrovascular adhesions.No malignancy identified.Stapled jejunal resection margin viable.B. Labeled KENAN :Benign small bowel.No activity, celiac disease, dysplasia or malignancy identified.Resection margins viable. at 1636 EDT Performed By: #### L [id number] ####[facility] ([facility])[address] [place] [address] INTEM Con 06-17-2025 INTEM C A10 58 mm Normal 46-63 [facility] Comment on above: Performed By: #### I NTEM C ####[facility] RES[facility] [id number] [place] [address] [facility] INTEM C A20 64 mm Normal 53-68 [facility] Comment on above: Performed By: #### I NTEM C ####[facility] RES[facility] [id number] [place] [address] [facility] INTEM C A5 47 mm Normal 36-54 [facility] Comment on above: Performed By: #### I NTEM C ####[facility] RES[facility] [id number] [place] [address] [facility] INTEM C CT 170 s Normal 139-205 [facility] Comment on above: Performed By: #### I NTEM C ####[facility] RES[facility] [id number] [place] [address] [facility] INTEM C LI60 98 % Normal 93-100 [facility] Comment on above: Performed By: #### I NTEM C ####[facility] RES[facility] [id number] [place] [address] [facility] INTEM C MCF 65 mm Normal 55-70 [facility] Comment on above: Performed By: #### I NTEM C ####[facility] [id number] [place] [address] [facility] INTEM C ML 7 % Normal 0-7 [facility] Comment on above: Result Comment: MI^P reliminary Result Performed By: #### I NTEM C ####[facility] [id number] [place] [address] [facility] LACTIC ACID WITH 4 HOUR REFL EXon 06-17-2025 LACTATE (MMOL/L) IN SER/PLAS 0.8 mmol/L Normal 0.5-2.2 [facility] Comment on above: Performed By: #### L [id number] ####[facility] LAB (BEAKER)[address] [place] [address] MAGNESIUMon 06-17-2025 Magnesium [Mass/Vol] 1.8 mg/dL Low 1.9-2.7 [facility] Comment on above: Performed By: #### L [id number] ####[facility] ([facility])[address] [place] [address] PHOSPHORUSon 06-17-2025 Magnesium [Mass/Vol] 2.3 mg/dL Low 2.5-5.0 [facility] Comment on above: Performed By: #### L [id number] ####[facility] ([facility])[address] [place] [address] POCT GLUCOSE METER UNSOLICIT ED RESULTSon 06-17-2025 Glucose [Mass/Vol] 103 mg/dL Normal 70-105 [facility] Comment on above: Order Comment: Waive d Testing in the ED is performed under the ED CLIA certificate #[id number]. Result Comment: vabu naw2 Performed By: #### L [id number] ####[facility] ([facility])[address] [place] [address] Glucose [Mass/Vol] 109 mg/dL High 70-105 [facility] Comment on above: Order Comment: Waive d Testing in the ED is performed under the ED CLIA certificate #[id number]. Result Comment: vabu naw2 Performed By: #### L [id number] ####[facility] ([facility])[address] [place] [address] Glucose [Mass/Vol] 83 mg/dL Normal 70-105 [facility] Comment on above: Order Comment: Waive d Testing in the ED is performed under the ED CLIA certificate #[id number]. Result Comment: tcep ek2 Performed By: #### L [id number] ####[facility] ([facility])[address] [place] [address] Glucose [Mass/Vol] 150 mg/dL High 70-105 [facility] Comment on above: Order Comment: Waive d Testing in the ED is performed under the ED CLIA certificate #[id number]. Result Comment: tcep ek2 Performed By: #### L [id number] ####[facility] LAB (BEAKER)[address] [place] [address] 30on 06-16-2025 30 Normal [facility] 30 Normal [facility] 30 Normal [facility] ABG COMPLETE UNSOLICITED RES ULTSon 06-16-2025 A-ADO2 Normal [facility] Comment on above: Result Comment: C^In calculable Performed By: #### L [id number] ####[facility] [id number] [place] [address] [facility] Base excess Calc (Bld) [Moles/Vol] -5.0000 mmol/L Low -2.0-3.0 [facility] Comment on above: Performed By: #### L [id number] ####[facility] [id number] [place] [address] [facility] CALCIUM IONIZED, ARTERIAL 1.15 mmol/L Normal 1.13-1.32 [facility] Comment on above: Performed By: #### L [id number] ####[facility] [id number] [place] [address] [facility] CARBOXYHEMOGLOBIN, ARTERIAL 1.8 % Normal [facility] Comment on above: Performed By: #### L [id number] ####[facility] [id number] [place] [address] [facility] Chloride [Moles/Vol] 118 mmol/L High 98-107 [facility] Comment on above: Performed By: #### L [id number] ####[facility] [id number] [place] [address] [place] CO2 (Bld) [Partial pressure] 34 mm[Hg] Low 35-45 [facility] Comment on above: Performed By: #### L [id number] ####[facility] [id number] [place] [address] [facility] DEOXYGENATED HEMOGLOBIN, ARTERIAL 0.2 % Normal [facility] Comment on above: Performed By: #### L [id number] ####[facility] [id number] [place] [address] [place] Glucose [Mass/Vol] 112 mg/dL High 65-95 [facility] Comment on above: Performed By: #### L [id number] ####[facility] [id number] [place] [address] [facility] HCO3 (Bld) [Moles/Vol] 19.7 mmol/L Low 21.0-28.0 [facility] Comment on above: Performed By: #### L [id number] ####[facility] [id number] [place] [id number] [facility] Hematocrit (Bld) [Volume fraction] 28 % Low 37-50 [facility] Comment on above: Performed By: #### L [id number] ####[facility] [id number] [place] [id number] [facility] Hemoglobin (Bld) [Mass/Vol] 9.2 g/dL Normal [facility] Comment on above: Performed By: #### L [id number] ####[facility] [id number] [place] [address] [facility] LACTATE, ARTERIAL 0.60 mmol/L Normal 0.36-1.39 [facility] Comment on above: Performed By: #### L [id number] ####[facility] [id number] [place] [id number] [facility] METHEMOGLOBIN, ARTERIAL 1.1 % Normal 0.0-1.5 [facility] Comment on above: Performed By: #### L [id number] ####[facility] [id number] [place] [address] [facility] Oxygen (Bld) [Partial pressure] 168 mm[Hg] High 83-108 [facility] Comment on above: Performed By: #### L [id number] ####[facility] [id number] [place] [address] [facility] OXYGEN SATURATION (%) IN ARTERIAL BLOOD 99.8 % Normal 94.0-100.0 [facility] Comment on above: Performed By: #### L [id number] ####[facility] [id number] [place] [id number] [facility] OXYGENATED HEMOGLOBIN IN ARTERIAL BLOOD 97.0 % Normal 94.0-97.0 [facility] Comment on above: Performed By: #### L [id number] ####[facility] [id number] [place] [address] [facility] PAO2/PAO2 Normal [facility] Comment on above: Result Comment: C^In calculable Performed By: #### L [id number] ####[facility] [id number] [place] [address] [facility] PF RATIO Normal [facility] Comment on above: Result Comment: C^In calculable Performed By: #### L [id number] ####[facility] [id number] [place], [place] [address] PH OF ARTERIAL BLOOD 7.37 Normal 7.35-7.45 [facility] Comment on above: Performed By: #### L [id number] ####[facility] [id number] [place], [place] [address] Potassium [Moles/Vol] 3.1 mmol/L Low 3.4-5.2 [facility] Comment on above: Performed By: #### L [id number] ####[facility] [id number] [place], [place] [address] Sodium [Moles/Vol] 144 mmol/L Normal 136-146 [facility] Comment on above: Performed By: #### L [id number] ####[facility] [id number] [place] [address] [facility] TEMPERATURE 37.0 ???C [facility] Comment on above: Performed By: #### L [id number] ####[facility] [id number] [place] [address] [facility] A-ADO2 [facility] Comment on above: Result Comment: C^In calculable Performed By: #### L [id number] ####[facility] [id number] [place] [address] [facility] Base excess Calc (Bld) [Moles/Vol] -4.9000 mmol/L Low -2.0-3.0 [facility] Comment on above: Performed By: #### L [id number] ####[facility] [id number] [place] [address] [facility] CALCIUM IONIZED, ARTERIAL 1.11 mmol/L Low 1.13-1.32 [facility] Comment on above: Performed By: #### L [id number] ####[facility] [id number] [place] [address] [facility] CARBOXYHEMOGLOBIN, ARTERIAL 1.5 % Normal [facility] Comment on above: Performed By: #### L [id number] ####[facility] [id number] [place] [address] [facility] Chloride [Moles/Vol] 119 mmol/L High 98-107 [facility] Comment on above: Performed By: #### L [id number] ####[facility] [id number] [place] [address] [facility] CO2 (Bld) [Partial pressure] 31 mm[Hg] Low 35-45 [facility] Comment on above: Performed By: #### L [id number] ####[facility] [id number] [place] [address] [facility] DEOXYGENATED HEMOGLOBIN, ARTERIAL 0.3 % Normal [facility] Comment on above: Performed By: #### L [id number] ####[facility] [id number] [place] [address] [facility] Glucose [Mass/Vol] 154 mg/dL High 65-95 [facility] Comment on above: Performed By: #### L [id number] ####[facility] [id number] [place] [address] [place] HCO3 (Bld) [Moles/Vol] 19.2 mmol/L Low 21.0-28.0 [facility] Comment on above: Performed By: #### L [id number] ####[facility] [id number] [place] [address] [facility] Hematocrit (Bld) [Volume fraction] 29 % Low 37-50 [facility] Comment on above: Performed By: #### L [id number] ####[facility] [id number] [place] [address] [place] Hemoglobin (Bld) [Mass/Vol] 9.5 g/dL Normal [facility] Comment on above: Performed By: #### L [id number] ####[facility] [id number] [place] [address] [place] LACTATE, ARTERIAL 0.90 mmol/L Normal 0.36-1.39 [facility] Comment on above: Performed By: #### L [id number] ####[facility] [id number] [place] [address] [facility] METHEMOGLOBIN, ARTERIAL 1.2 % Normal 0.0-1.5 [facility] Comment on above: Performed By: #### L [id number] ####[facility] [id number] [place] [address] [facility] Oxygen (Bld) [Partial pressure] 167 mm[Hg] High 83-108 [facility] Comment on above: Performed By: #### L [id number] ####[facility] [id number] [place] [address] [place] OXYGEN SATURATION (%) IN ARTERIAL BLOOD 99.7 % Normal 94.0-100.0 [facility] Comment on above: Performed By: #### L [id number] ####[facility] [id number] [place] [address] [place] OXYGENATED HEMOGLOBIN IN ARTERIAL BLOOD 96.9 % Normal 94.0-97.0 [facility] Comment on above: Performed By: #### L [id number] ####[facility] [id number] [place] [address] [place] PAO2/PAO2 Normal [facility] Comment on above: Result Comment: C^In calculable Performed By: #### L [id number] ####[facility] [id number] [place] [address] [place] PF RATIO Normal [facility] Comment on above: Result Comment: C^In calculable Performed By: #### L [id number] ####[facility] [id number] [place] [address] [facility] PH OF ARTERIAL BLOOD 7.40 Normal 7.35-7.45 [facility] Comment on above: Performed By: #### L [id number] ####[facility] [id number] [place] [address] [facility] Potassium [Moles/Vol] 3.5 mmol/L Normal 3.4-5.2 [facility] Comment on above: Performed By: #### L [id number] ####[facility] [id number] [place] [address] [facility] Sodium [Moles/Vol] 142 mmol/L Normal 136-146 [facility] Comment on above: Performed By: #### L [id number] ####[facility] [id number] [place] [address] [facility] TEMPERATURE 37.0 ???C Normal [facility] Comment on above: Performed By: #### L [id number] ####[facility] [id number] [place] [address] [facility] A-ADO2 68 mmHg Normal [facility] Comment on above: Performed By: #### L [id number] ####[facility] [id number] [place] [address] [facility] Base excess Calc (Bld) [Moles/Vol] -2.7000 mmol/L Low -2.0-3.0 [facility] Comment on above: Performed By: #### L [id number] ####[facility] [id number] [place] [address] [place] CALCIUM IONIZED, ARTERIAL 1.18 mmol/L Normal 1.13-1.32 [facility] Comment on above: Performed By: #### L [id number] ####[facility] [id number] [place] [address] [facility] CARBOXYHEMOGLOBIN, ARTERIAL 1.5 % Normal [facility] Comment on above: Performed By: #### L [id number] ####[facility] [id number] [place] [address] [facility] Chloride [Moles/Vol] 116 mmol/L High 98-107 [facility] Comment on above: Performed By: #### L [id number] ####[facility] [id number] [place] [address] [facility] CO2 (Bld) [Partial pressure] 33 mm[Hg] Low 35-45 [facility] Comment on above: Performed By: #### L [id number] ####[facility] [id number] [place], [place] [address] DEOXYGENATED HEMOGLOBIN, ARTERIAL 0.8 % Normal [facility] Comment on above: Performed By: #### L [id number] ####[facility] RES[facility] [id number] [address] FIO2 30.0 % Normal [facility] Comment on above: Performed By: #### L [id number] ####[facility] [id number] [address] Glucose [Mass/Vol] 186 mg/dL High 65-95 [facility] Comment on above: Performed By: #### L [id number] ####[facility] [id number] [place] [address] [facility] HCO3 (Bld) [Moles/Vol] 21.4 mmol/L Normal 21.0-28.0 [facility] Comment on above: Performed By: #### L [id number] ####[facility] [id number] [place], [place] [address] Hematocrit (Bld) [Volume fraction] 24 % Low 37-50 [facility] Comment on above: Performed By: #### L [id number] ####[facility] [id number] [place] [address] [facility] Hemoglobin (Bld) [Mass/Vol] 8.1 g/dL Normal [facility] Comment on above: Performed By: #### L [id number] ####[facility] [id number] [place], [place] [address] LACTATE, ARTERIAL 0.70 mmol/L Normal 0.36-1.39 [facility] Comment on above: Performed By: #### L [id number] ####[facility] [id number] [place] [address] [facility] METHEMOGLOBIN, ARTERIAL 0.4 % Normal 0.0-1.5 [facility] Comment on above: Performed By: #### L [id number] ####[facility] [id number] [place] [address] [facility] Oxygen (Bld) [Partial pressure] 105 mm[Hg] Normal 83-108 [facility] Comment on above: Performed By: #### L [id number] ####[facility] [id number] [place] [address] [facility] OXYGEN SATURATION (%) IN ARTERIAL BLOOD 99.2 % Normal 94.0-100.0 [facility] Comment on above: Performed By: #### L [id number] ####[facility] [id number] [place] [address] [facility] OXYGENATED HEMOGLOBIN IN ARTERIAL BLOOD 97.3 % High 94.0-97.0 [facility] Comment on above: Performed By: #### L [id number] ####[facility] [id number] [place] [address] [facility] PAO2/PAO2 0.61 mmHg Normal [facility] Comment on above: Performed By: #### L [id number] ####[facility] [id number] [place] [address] [facility] PEEP 8 cm H2O Normal [facility] Comment on above: Performed By: #### L [id number] ####[facility] [id number] [place] [address] [place] PF RATIO 350 mmHg Normal [facility] Comment on above: Performed By: #### L [id number] ####[facility] [id number] [place] [address] [facility] PH OF ARTERIAL BLOOD 7.42 Normal 7.35-7.45 [facility] Comment on above: Performed By: #### L [id number] ####[facility] [id number] [place] [address] [facility] Potassium [Moles/Vol] 3.7 mmol/L Normal 3.4-5.2 [facility] Comment on above: Performed By: #### L [id number] ####[facility] [id number] [place] [address] [facility] Sodium [Moles/Vol] 140 mmol/L Normal 136-146 [facility] Comment on above: Performed By: #### L [id number] ####[facility] [id number] [place] [address] [facility] TEMPERATURE 37.0 ???C [facility] Comment on above: Performed By: #### L [id number] ####[facility] [id number] [place] [address] [facility] TOTAL MINUTE VOLUME 7.7 L Normal [facility] Comment on above: Performed By: #### L [id number] ####[facility] [id number] [place] [address] [facility] ANESon 06-16-2024 ANES Normal [facility] ANES Normal [facility] BASIC METABOLIC PANELon 05-20 Anion gap [Moles/Vol] 8 mmol/L Normal 7-20 [facility] Comment on above: Performed By: #### L [id number] ####[facility] LAB (BEAKER)[address] [place] [address] Calcium [Mass/Vol] 7.6 mg/dL Low 8.6-10.3 [facility] Comment on above: Performed By: #### L [id number] ####[facility] LAB (BEAKER)[address] [place] [address] Chloride [Moles/Vol] 117 mmol/L High 98-107 [facility] Comment on above: Performed By: #### L [id number] ####[facility] LAB (BEAKER)[address] [place] [address] CO2 [Moles/Vol] 23 mmol/L Normal 21-31 [facility] Comment on above: Performed By: #### L [id number] ####[facility] ([facility])[address] [place] [address] Creatinine [Mass/Vol] 0.99 mg/dL Normal 0.60-1.30 [facility] Comment on above: Performed By: #### L AB15 ####[facility] ([facility])[address] [place] [address] GLOMERULAR FILTRATION RATE ML/MIN/1.73 SQ M.PREDICTED 62.9 mL/min/1.73m*2 Normal >60.0 [facility] Comment on above: Result Comment: The [facility]???s estimated glomerular filtration rate (eGFR) will no longer include consideration of race in its calculation. The National Kidney Foundation???s eGFR Task Force developed new recommendations for the estimation of the glomerular filtration rate in the [place] They recommend immediate implementation of the new equation refit without the race variable in all laboratories because the calculation does not include race. In addition to not including race in the calculation and reporting, it included diversity in its development, and has acceptable performance characteristics and potential consequences that do not disproportionately affect any one group of individuals. Performed By: #### L AB15 ####[facility] ([facility])[address] [place] [address] Glucose [Mass/Vol] 155 mg/dL High 70-100 [facility] Comment on above: Performed By: #### L AB15 ####[facility] ([facility])[address] [place] [address] Potassium [Moles/Vol] 3.7 mmol/L Normal 3.5-5.1 [facility] Comment on above: Performed By: #### L AB15 ####[facility] ([facility])[address] [place] [address] Sodium [Moles/Vol] 144 mmol/L Normal 136-145 [facility] Comment on above: Performed By: #### L AB15 ####[facility] (BEAKER)[address] [place] [address] Urea nitrogen [Mass/Vol] 44 mg/dL High 7-25 [facility] Comment on above: Performed By: #### L AB15 ####[facility] ([facility])[address] [place] [address] UREA NITROGEN/CREATININE (MASS RATIO) IN SER/PLAS 44.4 Normal [facility] Comment on above: Performed By: #### L AB15 ####[facility] ([facility])[address] [place] [address] Anion gap [Moles/Vol] 9 mmol/L Normal 7-20 [facility] Comment on above: Performed By: #### L AB15 ####[facility] ([facility])[address] [place] [address] Calcium [Mass/Vol] 7.8 mg/dL Low 8.6-10.3 [facility] Comment on above: Performed By: #### L AB15 ####[facility] ([facility])[address] [place] [address] Chloride [Moles/Vol] 115 mmol/L High 98-107 [facility] Comment on above: Performed By: #### L AB15 ####[facility] ([facility])[address] [place] [address] CO2 [Moles/Vol] 23 mmol/L Normal 21-31 [facility] Comment on above: Performed By: #### L AB15 ####[facility] ([facility])[address] [place] [address] Creatinine [Mass/Vol] 1.05 mg/dL Normal 0.60-1.30 [facility] Comment on above: Performed By: #### L AB15 ####[facility] ([facility])[address] [place] [address] GLOMERULAR FILTRATION RATE ML/MIN/1.73 SQ M.PREDICTED 58.6 mL/min/1.73m*2 Low >60.0 [facility] Comment on above: Result Comment: The [facility]???s estimated glomerular filtration rate (eGFR) will no longer include consideration of race in its calculation. The National Kidney Foundation???s eGFR Task Force developed new recommendations for the estimation of the glomerular filtration rate in the [place] They recommend immediate implementation of the new equation refit without the race variable in all laboratories because the calculation does not include race. In addition to not including race in the calculation and reporting, it included diversity in its development, and has acceptable performance characteristics and potential consequences that do not disproportionately affect any one group of individuals. Performed By: #### L AB15 ####[facility] ([facility])[address] [place] [address] Glucose [Mass/Vol] 181 mg/dL High 70-100 [facility] Comment on above: Performed By: #### L AB15 ####[facility] ([facility])[address] [place] [address] Potassium [Moles/Vol] 3.8 mmol/L Normal 3.5-5.1 [facility] Comment on above: Performed By: #### L [id number] ####[facility] ([facility])[address] [place] [address] Sodium [Moles/Vol] 143 mmol/L Normal 136-145 [facility] Comment on above: Performed By: #### L [id number] ####[facility] ([facility])[address] [place] [address] Urea nitrogen [Mass/Vol] 44 mg/dL High 7-25 [facility] Comment on above: Performed By: #### L [id number] ####[facility] ([facility])[address] [place] [address] UREA NITROGEN/CREATININE (MASS RATIO) IN SER/PLAS 41.9 Normal [facility] Comment on above: Performed By: #### L [id number] ####[facility] ([facility])[address] [place] [address] CBC WITH AUTO DIFFERENTIALon 06-16-2025 Basophils (Bld) [#/Vol] 0.02 10*3/uL Normal 0.00-0.20 [facility] Comment on above: Performed By: #### L [id number] ####[facility] ([facility])[address] [place] [address] Basophils/100 WBC (Bld) 0.2 % Normal 0.0-1.0 [facility] Comment on above: Performed By: #### L [id number] ####[facility] ([facility])[address] [place] [address] Eosinophils (Bld) [#/Vol] 0.03 10*3/uL Normal 0.00-0.50 [facility] Comment on above: Performed By: #### L [id number] ####[facility] ([facility])[address] [place] [address] Eosinophils/100 WBC (Bld) 0.3 % Normal 0.0-6.0 [facility] Comment on above: Performed By: #### L [id number] ####[facility] ([facility])[address] [place] [address] Erythrocyte distribution width (RBC) [Ratio] 15.3 % High 11.5-15.0 [facility] Comment on above: Performed By: #### L [id number] ####[facility] (BEAKER)[address] [place] [address] ERYTHROCYTE MEAN CORPUSCULAR HEMOGLOBIN CONCENTRATION (G/DL) BY AUTOMATED 32.9 g/dL Normal 32.0-35.0 [facility] Comment on above: Performed By: #### L [id number] ####[facility] (BEAKER)[address] [place] [address] Hematocrit (Bld) [Volume fraction] 23.7 % Low 36.0-50.0 [facility] Comment on above: Performed By: #### L [id number] ####[facility] (BEAKER)[address] [place] [address] Hemoglobin (Bld) [Mass/Vol] 7.8 g/dL Low 12.0-17.0 [facility] Comment on above: Performed By: #### L [id number] ####[facility] (BEAKER)[address] [place] [address] Immature granulocytes (Bld) [#/Vol] 0.07 10*3/uL Normal 0.00-0.20 [facility] Comment on above: Performed By: #### L [id number] ####[facility] (BEAKER)[address] [place] [address] Immature granulocytes/100 WBC (Bld) 0.7 % Normal 0.0-1.0 [facility] Comment on above: Performed By: #### L [id number] ####[facility] (BEAKER)[address] [place] [address] IMMATURE PLATELET FRACTION % 8.4 % High 0.8-6.3 [facility] Comment on above: Performed By: #### L [id number] ####[facility] (BEAKER)[address] [place] [address] Lymphocytes (Bld) [#/Vol] 1.36 10*3/uL Normal 1.20-4.00 [facility] Comment on above: Performed By: #### L [id number] ####[facility] (BEAKER)[address] [place] [address] Lymphocytes/100 WBC (Bld) 13.5 % Low 20.0-45.0 [facility] Comment on above: Performed By: #### L [id number] ####[facility] (BEAKER)[address] [place] [address] MCH (RBC) [Entitic mass] 28.5 pg Normal 27.0-33.0 [facility] Comment on above: Performed By: #### L [id number] ####[facility] (BEAKER)[address] [place] [address] MCV (RBC) [Entitic vol] 86.5 fL Normal 82.0-98.0 [facility] Comment on above: Performed By: #### L [id number] ####[facility] (BEAKER)[address] [place] [address] Monocytes (Bld) [#/Vol] 0.83 10*3/uL Normal 0.10-1.00 [facility] Comment on above: Performed By: #### L [id number] ####[facility] (BEAKER)[address] [place] [address] Monocytes/100 WBC (Bld) 8.2 % Normal 5.0-12.0 [facility] Comment on above: Performed By: #### L [id number] ####[facility] (BEAKER)[address] [place] [address] Neutrophils (Bld) [#/Vol] 7.79 10*3/uL High 1.60-7.60 [facility] Comment on above: Performed By: #### L [id number] ####[facility] (BEAKER)[address] [place] [address] Neutrophils/100 WBC (Bld) 77.1 % High 40.0-72.0 [facility] Comment on above: Performed By: #### L [id number] ####[facility] (BEAKER)[address] [place] [address] NRBC (PER 100 WBCS) BY AUTOMATED COUNT 0.0 % Normal 0 [facility] Comment on above: Performed By: #### L [id number] ####[facility] (BEAKER)[address] [place] [address] PLATELETS (10*3/UL) IN BLOOD AUTOMATED COUNT 188 10*3/uL Normal 150-400 [facility] Comment on above: Performed By: #### L [id number] ####[facility] (BEAKER)[address] [place] [address] RBC (Bld) [#/Vol] 2.74 10*6/uL Low 3.80-5.70 [facility] Comment on above: Performed By: #### L [id number] ####[facility] (BEAKER)[address] [place] [address] WBC (Bld) [#/Vol] 10.10 10*3/uL Normal 4.00-10.60 [facility] Comment on above: Performed By: #### L [id number] ####[facility] (BEAKER)[address] [place] [address] CONSULTon 06-16-2025 CONSULT Normal [facility] CONSULT Normal [facility] CONSULT Normal [facility] CONSULT Normal [facility] HEMOGLOBIN AND HEMATOCRIT, B LOODon 06-16-2025 Hematocrit (Bld) [Volume fraction] 24.3 % Low 36.0-50.0 [facility] Comment on above: Performed By: #### L [id number] ####[facility] (BEAKER)[address] [place] [address] Hemoglobin (Bld) [Mass/Vol] 7.9 g/dL Low 12.0-17.0 [facility] Comment on above: Performed By: #### L [id number] ####[facility] (BEAKER)[address] [place] [address] Hematocrit (Bld) [Volume fraction] 25.7 % Low 36.0-50.0 [facility] Comment on above: Performed By: #### L [id number] ####[facility] (BEAKER)[address] [place] [address] Hemoglobin (Bld) [Mass/Vol] 8.4 g/dL Low 12.0-17.0 [facility] Comment on above: Performed By: #### L [id number] ####[facility] (BEAKER)[address] [place] [address] Hematocrit (Bld) [Volume fraction] 24.0 % Low 36.0-50.0 [facility] Comment on above: Performed By: #### L [id number] ####[facility] (BEAKER)[address] [place] [address] Hemoglobin (Bld) [Mass/Vol] 7.7 g/dL Low 12.0-17.0 [facility] Comment on above: Performed By: #### L [id number] ####[facility] ([facility])[address] [place] [address] HPon 06-16-2025 HP H&P reviewed. The shravan venegas was examined and there are no changes to the H&P. [facility] NURSNOTEon 06-16-2025 NURSNOTE Gave bedside report to ALFONSO Posadas [facility] OPNOTEon 06-16-2025 OPNOTE [facility] POCT GLUCOSE METER UNSOLICIT ED RESULTSon 06-16-2025 Glucose [Mass/Vol] 140 mg/dL High 70-105 [facility] Comment on above: Order Comment: Waive d Testing in the ED is performed under the ED CLIA certificate #[id number]. Result Comment: [email or web address] Performed By: #### L [id number] ####[facility] ([facility])[address] [place] [address] Glucose [Mass/Vol] 174 mg/dL High 70-105 [facility] Comment on above: Order Comment: Waive d Testing in the ED is performed under the ED CLIA certificate #[id number]. Result Comment: [email or web address] Performed By: #### L [id number] ####[facility] ([facility])[address] [place] [address] Glucose [Mass/Vol] 211 mg/dL High 70-105 [facility] Comment on above: Order Comment: Waive d Testing in the ED is performed under the ED CLIA certificate #[id number]. Result Comment: [email or web address] Performed By: #### L [id number] ####[facility] ([facility])[address] [place] [address] Glucose [Mass/Vol] 215 mg/dL High 70-105 [facility] Comment on above: Order Comment: Waive d Testing in the ED is performed under the ED CLIA certificate #[id number]. Result Comment: [email or web address] Performed By: #### L [id number] ####[facility] [employer])[address] [place] [address] PROTIME-INRon 06-16-2025 INR IN PPP BY COAGULATION ASSAY 1.33 High 0.90-1.10 [facility] Comment on above: Result Comment: [facility] FOR [facility]ARF[facility] THERAPY CONDITION INRPROPHYLAXIS OF VENOUS THROMBOSIS 2-3(HIGH-RISK SURGERY)TREATMENT OF VENOUS THROMBOSIS 2-3TREATMENT OF PULMONARY EMBOLISM 2-3PREVENTION OF SYSTEMIC EMBOLISM: 2-3 ACUTE MYOCARDIAL INFARCTION TISSUE HEART VALVES VALVULAR HEART DISEASE ATRIAL FIBRILLATION RECURRENT SYSTEMIC EMBOLISMMECHANICAL HEART VALVE 2.5-3.5 FROM: ORAL ANTICOAGULANTS. MECHANISM OF ACTION, CLINICAL EFFECTIVENESS, AND OPTIMAL THERAPEUTIC RANGE. CHEST 1995;108:231S-246S. Performed By: #### L [id number] ####[facility] [employer]in)[address] [place] [address] PROTHROMBIN TIME (PT) IN PPP BY COAGULATION ASSAY 16.5 Seconds High 12.3-14.8 [facility] Comment on above: Performed By: #### L [id number] ####[facility] [employer])[address] [place] [address] PRU TESTon 06-16-2025 PRU TEST 368 PRU Normal 180-376 [facility] Comment on above: Performed By: #### Sabrina MIKE ####[facility] ([employer] [place] [address] ABG COMPLETE UNSOLICITED RES ULTSon 06-15-2025 A-ADO2 Normal [facility] Comment on above: Result Comment: C^In calculable Performed By: #### L [id number] ####[facility] [id number] [place] [address] [facility] Base excess Calc (Bld) [Moles/Vol] -7.2000 mmol/L Low -2.0-3.0 [facility] Comment on above: Performed By: #### L [id number] ####[facility] [id number] [place] [address] [facility] CALCIUM IONIZED, ARTERIAL 1.10 mmol/L Low 1.13-1.32 [facility] Comment on above: Performed By: #### L [id number] ####[facility] [id number] [place] [address] [facility] CARBOXYHEMOGLOBIN, ARTERIAL 1.2 % Normal [facility] Comment on above: Performed By: #### L [id number] ####[facility] [id number] [place] [address] [facility] Chloride [Moles/Vol] 115 mmol/L High 98-107 [facility] Comment on above: Performed By: #### L [id number] ####[facility] [id number] [place] [address] [facility] CO2 (Bld) [Partial pressure] 39 mm[Hg] Normal 35-45 [facility] Comment on above: Performed By: #### L [id number] ####[facility] [id number] [place] [address] [facility] DEOXYGENATED HEMOGLOBIN, ARTERIAL 0.2 % Normal [facility] Comment on above: Performed By: #### L [id number] ####[facility] [id number] [place] [address] [place] Glucose [Mass/Vol] 199 mg/dL High 65-95 [facility] Comment on above: Performed By: #### L [id number] ####[facility] [id number] [place] [address] [place] HCO3 (Bld) [Moles/Vol] 18.8 mmol/L Low 21.0-28.0 [facility] Comment on above: Performed By: #### L [id number] ####[facility] [id number] [place] [address] [place] Hematocrit (Bld) [Volume fraction] 24 % Low 37-50 [facility] Comment on above: Performed By: #### L [id number] ####[facility] [id number] [place] [address] [place] Hemoglobin (Bld) [Mass/Vol] 8.1 g/dL Normal [facility] Comment on above: Performed By: #### L [id number] ####[facility] [id number] [place] [address] [place] LACTATE, ARTERIAL 1.60 mmol/L High 0.36-1.39 [facility] Comment on above: Performed By: #### L [id number] ####[facility] [id number] [place] [address] [place] METHEMOGLOBIN, ARTERIAL 0.8 % Normal 0.0-1.5 [facility] Comment on above: Performed By: #### L [id number] ####[facility] [id number] [place] [address] [place] Oxygen (Bld) [Partial pressure] 226 mm[Hg] High 83-108 [facility] Comment on above: Performed By: #### L [id number] ####[facility] [id number] [place] [address] [place] OXYGEN SATURATION (%) IN ARTERIAL BLOOD 99.8 % Normal 94.0-100.0 [facility] Comment on above: Performed By: #### L [id number] ####[facility] [id number] [place] [address] [place] OXYGENATED HEMOGLOBIN IN ARTERIAL BLOOD 97.8 % High 94.0-97.0 [facility] Comment on above: Performed By: #### L [id number] ####[facility] [id number] [place] [address] [place] PAO2/PAO2 Normal [facility] Comment on above: Result Comment: C^In calculable Performed By: #### L [id number] ####[facility] [id number] [place] [address] [place] PF RATIO Normal [facility] Comment on above: Result Comment: C^In calculable Performed By: #### L [id number] ####[facility] [id number] [place] [address] [facility] PH OF ARTERIAL BLOOD 7.29 Low 7.35-7.45 [facility] Comment on above: Performed By: #### L [id number] ####[facility] [id number] [place] [address] [facility] Potassium [Moles/Vol] 4.4 mmol/L Normal 3.4-5.2 [facility] Comment on above: Performed By: #### L [id number] ####[facility] [id number] [place] [address] [facility] Sodium [Moles/Vol] 140 mmol/L Normal 136-146 [facility] Comment on above: Performed By: #### L [id number] ####[facility] RES[facility] [id number] [place] [address] [facility] TEMPERATURE 37.0 ???C Normal [facility] Comment on above: Performed By: #### L [id number] ####[facility] [id number] [place] [address] [facility] ANESon 06-15-2025 ANES Normal [facility] ANES Normal [facility] BASIC METABOLIC PANELon 05-20 Anion gap [Moles/Vol] 9 mmol/L Normal 7-20 [facility] Comment on above: Performed By: #### L [id number] ####[facility] (BEAKER)[address] [place] [address] Calcium [Mass/Vol] 7.7 mg/dL Low 8.6-10.3 [facility] Comment on above: Performed By: #### L [id number] ####[facility] (BEAKER)[address] [place] [address] Chloride [Moles/Vol] 114 mmol/L High 98-107 [facility] Comment on above: Performed By: #### L [id number] ####[facility] ([facility])[address] [place] [address] CO2 [Moles/Vol] 23 mmol/L Normal 21-31 [facility] Comment on above: Performed By: #### L [id number] ####[facility] ([facility])[address] [place] [address] Creatinine [Mass/Vol] 1.03 mg/dL Normal 0.60-1.30 [facility] Comment on above: Performed By: #### L [id number] ####[facility] ([facility])[address] [place] [address] GLOMERULAR FILTRATION RATE ML/MIN/1.73 SQ M.PREDICTED 60.0 mL/min/1.73m*2 Low >60.0 [facility] Comment on above: Result Comment: The [facility]???s estimated glomerular filtration rate (eGFR) will no longer include consideration of race in its calculation. The National Kidney Foundation???s eGFR Task Force developed new recommendations for the estimation of the glomerular filtration rate in the [place] They recommend immediate implementation of the new equation refit without the race variable in all laboratories because the calculation does not include race. In addition to not including race in the calculation and reporting, it included diversity in its development, and has acceptable performance characteristics and potential consequences that do not disproportionately affect any one group of individuals. Performed By: #### L [id number] ####[facility] ([facility])[address] [place] [address] Glucose [Mass/Vol] 155 mg/dL High 70-100 [facility] Comment on above: Performed By: #### L [id number] ####[facility] ([facility])[address] [place] [address] Potassium [Moles/Vol] 4.2 mmol/L Normal 3.5-5.1 [facility] Comment on above: Performed By: #### L [id number] ####[facility] ([facility])[address] [place] [address] Sodium [Moles/Vol] 142 mmol/L Normal 136-145 [facility] Comment on above: Performed By: #### L [id number] ####[facility] (BEAKER)[address] [place] [address] Urea nitrogen [Mass/Vol] 41 mg/dL High 7-25 [facility] Comment on above: Performed By: #### L [id number] ####[facility] (BEBANNER)[address] [place] [address] UREA NITROGEN/CREATININE (MASS RATIO) IN SER/PLAS 39.8 Normal [facility] Comment on above: Performed By: #### L [id number] ####[facility] (BEBANNER)[address] [place] [address] Anion gap [Moles/Vol] 9 mmol/L Normal 7-20 [facility] Comment on above: Performed By: #### L [id number] ####[facility] (BE[facility]ANNER)[address] [place] [address] Calcium [Mass/Vol] 7.5 mg/dL Low 8.6-10.3 [facility] Comment on above: Performed By: #### L [id number] ####[facility] (BEAKER)[address] [place] [address] Chloride [Moles/Vol] 114 mmol/L High 98-107 [facility] Comment on above: Performed By: #### L [id number] ####[facility] (BEAKER)[address] [place] [address] CO2 [Moles/Vol] 23 mmol/L Normal 21-31 [facility] Comment on above: Performed By: #### L [id number] ####[facility] (BEAKER)[address] [place] [address] Creatinine [Mass/Vol] 1.10 mg/dL Normal 0.60-1.30 [facility] Comment on above: Performed By: #### L [id number] ####[facility] (BEAKER)[address] [place] [address] GLOMERULAR FILTRATION RATE ML/MIN/1.73 SQ M.PREDICTED 55.4 mL/min/1.73m*2 Low >60.0 [facility] Comment on above: Result Comment: The [facility]???s estimated glomerular filtration rate (eGFR) will no longer include consideration of race in its calculation. The National Kidney Foundation???s eGFR Task Force developed new recommendations for the estimation of the glomerular filtration rate in the [place] They recommend immediate implementation of the new equation refit without the race variable in all laboratories because the calculation does not include race. In addition to not including race in the calculation and reporting, it included diversity in its development, and has acceptable performance characteristics and potential consequences that do not disproportionately affect any one group of individuals. Performed By: #### L [id number] ####[facility] ([facility])[address] [place] [address] Glucose [Mass/Vol] 153 mg/dL High 70-100 [facility] Comment on above: Performed By: #### L [id number] ####[facility] ([facility])[address] [place] [address] Potassium [Moles/Vol] 4.3 mmol/L Normal 3.5-5.1 [facility] Comment on above: Performed By: #### L [id number] ####[facility] ([facility])[address] [place] [address] Sodium [Moles/Vol] 142 mmol/L Normal 136-145 [facility] Comment on above: Performed By: #### L [id number] ####[facility] ([facility])[address] [place] [address] Urea nitrogen [Mass/Vol] 41 mg/dL High 7-25 [facility] Comment on above: Performed By: #### L [id number] ####[facility] ([facility])[address] [place] [address] UREA NITROGEN/CREATININE (MASS RATIO) IN SER/PLAS 37.3 Normal [facility] Comment on above: Performed By: #### L [id number] ####[facility] (BEAKER)[address] [place] [address] Anion gap [Moles/Vol] 11 mmol/L Normal 7-20 [facility] Comment on above: Performed By: #### L [id number] ####[facility] (BEAKER)[address] [place] [address] Calcium [Mass/Vol] 8.8 mg/dL Normal 8.6-10.3 [facility] Comment on above: Performed By: #### L [id number] ####[facility] (BEAKER)[address] [place] [address] Chloride [Moles/Vol] 109 mmol/L High 98-107 [facility] Comment on above: Performed By: #### L [id number] ####[facility] (BEAKER)[address] [place] [address] CO2 [Moles/Vol] 26 mmol/L Normal 21-31 [facility] Comment on above: Performed By: #### L [id number] ####[facility] (BEAKER)[address] [place] [address] Creatinine [Mass/Vol] 1.01 mg/dL Normal 0.60-1.30 [facility] Comment on above: Performed By: #### L [id number] ####[facility] (BEAKER)[address] [place] [address] GLOMERULAR FILTRATION RATE ML/MIN/1.73 SQ M.PREDICTED 61.4 mL/min/1.73m*2 Normal >60.0 [facility] Comment on above: Result Comment: The [facility]???s estimated glomerular filtration rate (eGFR) will no longer include consideration of race in its calculation. The National Kidney Foundation???s eGFR Task Force developed new recommendations for the estimation of the glomerular filtration rate in the [place] They recommend immediate implementation of the new equation refit without the race variable in all laboratories because the calculation does not include race. In addition to not including race in the calculation and reporting, it included diversity in its development, and has acceptable performance characteristics and potential consequences that do not disproportionately affect any one group of individuals. Performed By: #### L [id number] ####[facility] ([facility])[address] [place] [address] Glucose [Mass/Vol] 136 mg/dL High 70-100 [facility] Comment on above: Performed By: #### L [id number] ####[facility] ([facility])[address] [place] [address] Potassium [Moles/Vol] 4.6 mmol/L Normal 3.5-5.1 [facility] Comment on above: Performed By: #### L [id number] ####[facility] ([facility])[address] [place] [address] Sodium [Moles/Vol] 141 mmol/L Normal 136-145 [facility] Comment on above: Performed By: #### L [id number] ####[facility] ([facility])[address] [place] [address] Urea nitrogen [Mass/Vol] 36 mg/dL High 7-25 [facility] Comment on above: Performed By: #### L [id number] ####[facility] ([facility])[address] [place] [address] UREA NITROGEN/CREATININE (MASS RATIO) IN SER/PLAS 35.6 Normal [facility] Comment on above: Performed By: #### L [id number] ####[facility] ([facility])[address] [place] [address] Basophils Auto (Bld) [#/Vol] Ordered By: Abdoulaye Marker on 06-15-2025 Basophils (Bld) [#/Vol] 0.0 10 3/uL 0.0-0.1 [facility] Basophils/100 WBC Auto (Bld) Ordered By: Abdoulaye Marker on 06-15-2025 Basophils/100 WBC (Bld) 0.2 % 0.2-2.0 [facility] CBC WITH AUTO DIFFERENTIALon 06-15-2025 Basophils (Bld) [#/Vol] 0.04 10*3/uL Normal 0.00-0.20 [facility] Comment on above: Performed By: #### L [id number] ####[facility] (BEAKER)[address] [place] [address] Basophils/100 WBC (Bld) 0.4 % Normal 0.0-1.0 [facility] Comment on above: Performed By: #### L [id number] ####[facility] (BEAKER)[address] [place] [address] Eosinophils (Bld) [#/Vol] 0.05 10*3/uL Normal 0.00-0.50 [facility] Comment on above: Performed By: #### L [id number] ####[facility] (BEAKER)[address] [place] [address] Eosinophils/100 WBC (Bld) 0.5 % Normal 0.0-6.0 [facility] Comment on above: Performed By: #### L [id number] ####[facility] ([facility]NER)[address] [place] [address] Erythrocyte distribution width (RBC) [Ratio] 14.9 % Normal 11.5-15.0 [facility] Comment on above: Performed By: #### L [id number] ####[facility] (BEAKER)[address] [place] [address] ERYTHROCYTE MEAN CORPUSCULAR HEMOGLOBIN CONCENTRATION (G/DL) BY AUTOMATED 31.8 g/dL Low 32.0-35.0 [facility] Comment on above: Performed By: #### L [id number] ####[facility] ([facility])[address] [place] [address] Hematocrit (Bld) [Volume fraction] 32.1 % Low 36.0-50.0 [facility] Comment on above: Performed By: #### L [id number] ####[facility] ([facility])[address] [place] [address] Hemoglobin (Bld) [Mass/Vol] 10.2 g/dL Low 12.0-17.0 [facility] Comment on above: Performed By: #### L [id number] ####[facility] ([facility])[address] [place] [address] Immature granulocytes (Bld) [#/Vol] 0.05 10*3/uL Normal 0.00-0.20 [facility] Comment on above: Performed By: #### L [id number] ####[facility] ([facility])[address] [place] [address] Immature granulocytes/100 WBC (Bld) 0.5 % Normal 0.0-1.0 [facility] Comment on above: Performed By: #### L [id number] ####[facility] ([facility])[address] [place] [address] IMMATURE PLATELET FRACTION % 12.3 % High 0.8-6.3 [facility] Comment on above: Performed By: #### L [id number] ####[facility] ([facility])[address] [place] [address] Lymphocytes (Bld) [#/Vol] 2.29 10*3/uL Normal 1.20-4.00 [facility] Comment on above: Performed By: #### L [id number] ####[facility] (BEAKER)[address] [place] [address] Lymphocytes/100 WBC (Bld) 21.1 % Normal 20.0-45.0 [facility] Comment on above: Performed By: #### L [id number] ####[facility] (BEAKER)[address] [place] [address] MCH (RBC) [Entitic mass] 27.9 pg Normal 27.0-33.0 [facility] Comment on above: Performed By: #### L [id number] ####[facility] (BEAKER)[address] [place] [address] MCV (RBC) [Entitic vol] 87.9 fL Normal 82.0-98.0 [facility] Comment on above: Performed By: #### L [id number] ####[facility] (BEAKER)[address] [place] [address] Monocytes (Bld) [#/Vol] 0.58 10*3/uL Normal 0.10-1.00 [facility] Comment on above: Performed By: #### L [id number] ####[facility] (BEAKER)[address] [place] [address] Monocytes/100 WBC (Bld) 5.3 % Normal 5.0-12.0 [facility] Comment on above: Performed By: #### L [id number] ####[facility] (BEAKER)[address] [place] [address] Neutrophils (Bld) [#/Vol] 7.84 10*3/uL High 1.60-7.60 [facility] Comment on above: Performed By: #### L [id number] ####[facility] (BEAKER)[address] [place] [address] Neutrophils/100 WBC (Bld) 72.2 % High 40.0-72.0 [facility] Comment on above: Performed By: #### L [id number] ####[facility] (BEAKER)[address] [place] [address] NRBC (PER 100 WBCS) BY AUTOMATED COUNT 0.0 % Normal 0 [facility] Comment on above: Performed By: #### L [id number] ####[facility] (BEAKER)[address] [place] [address] PLATELETS (10*3/UL) IN BLOOD AUTOMATED COUNT 217 10*3/uL Normal 150-400 [facility] Comment on above: Performed By: #### L [id number] ####[facility] (BEAKER)[address] [place] [address] RBC (Bld) [#/Vol] 3.65 10*6/uL Low 3.80-5.70 [facility] Comment on above: Performed By: #### L [id number] ####[facility] (BEAKER)[address] [place] [address] WBC (Bld) [#/Vol] 10.85 10*3/uL High 4.00-10.60 [facility] Comment on above: Performed By: #### L [id number] ####[facility] (BEAKER)[address] [place] [address] CONSULTon 06-15-2025 CONSULT Normal [facility] CONSULT Normal [facility] CTA ABDOMEN PELVIS W IV CONT RASTon 06-15-2025 CTA ABDOMEN PELVIS W IV CONTRAST Invalid Interpretation Code [facility] Eosinophils/100 WBC Auto (Bl d)Ordered By: Abdoulaye Marker on 06-15-2025 Eosinophils/100 WBC (Bld) 0.9 % 0.9-7.0 [facility] Erythrocyte distribution wid th Auto (RBC) [Ratio]Ordered By: Abdoulaye Marker on 06-15-2025 Erythrocyte distribution width (RBC) [Ratio] 15.2 % High 11.0-15.0 [facility] Globulin Calc (S) [Mass/Vol] Ordered By: Ellen Crabtree on 06-15-2025 Globulin (S) [Mass/Vol] 4.3 g/dL [facility] Glomerular filtration rate ( GFR) estimation in non- AmericanOrdered By: Ellen Crabtree on 06-15-2025 GFR/1.73 sq M.predicted among non-blacks MDRD (S/P/Bld) [Vol rate/Area] mL/min/{1.73_m2} >=60 mL/min/1.7 3m 2 [facility] HEMOGLOBIN AND HEMATOCRIT, B LOODon 06-15-2025 Hematocrit (Bld) [Volume fraction] 25.0 % Low 36.0-50.0 [facility] Comment on above: Performed By: #### L [id number] ####[facility] (BEAKER)[address] [place] [address] Hemoglobin (Bld) [Mass/Vol] 8.1 g/dL Low 12.0-17.0 [facility] Comment on above: Performed By: #### L [id number] ####[facility] (BEAKER)[address] [place] [address] Hematocrit (Bld) [Volume fraction] 26.5 % Low 36.0-50.0 [facility] Comment on above: Performed By: #### L [id number] ####[facility] ([facility])[address] [place] [address] Hemoglobin (Bld) [Mass/Vol] 8.7 g/dL Low 12.0-17.0 [facility] Comment on above: Performed By: #### L [id number] ####[facility] ([facility])[address] [place] [address] Hematocrit (Bld) [Volume fraction] 30.0 % Low 36.0-50.0 [facility] Comment on above: Performed By: #### L [id number] ####[facility] ([facility])[address] [place] [address] Hemoglobin (Bld) [Mass/Vol] 9.5 g/dL Low 12.0-17.0 [facility] Comment on above: Performed By: #### L [id number] ####[facility] ([facility])[address] [place] [address] HPon 06-15-2025 HP Normal [facility] HP Normal [facility] Hematocrit Auto (Bld) [Volum e fraction]Ordered By: Abdoulaye Marker on 06-15-2025 Hematocrit (Bld) [Volume fraction] 20.4 % Critically low 42.0-54.0 [facility] Comment on above: RESULTS CALLED TO MAGALY KENNY RN @BY Danica Ramesh at 220 Hemoglobin [Mass/volume] in BloodOrdered By: Abdoulaye Marker on 06-15-2025 Hemoglobin (Bld) [Mass/Vol] 6.3 g/dL Critically low 14.0-18.0 [facility] Comment on above: RESULTS CALLED TO LETY KENNY RN @BY Danica Ramesh at 220 INR in Platelet poor plasma by Coagulation assayOrdered By: Abdoulaye Marker on 06-15-2025 INR Coag (PPP) [Relative time] 1.09 {INR} [facility] Comment on above: DESIRED INR:2.0-3.0 CONDITIONS NOT LISTED BELOW2.5-3.5 FOR PROSTHETIC HEART VALVE REPLACEMENT2.5-3.5 RECURRENT THROMBOSIS Laboratory - Chemistry and C hemistry - challengeOrdered By: Abdoulaye Enrique on 06-15-2025 Lactate [Moles/Vol] 0.8 mmol/L 0.4-2.0 [facility] Laboratory - Chemistry and C hemistry - challengeOrdered By: Ellen Crabtree on 06-15-2025 Albumin [Mass/Vol] 2.6 g/dL Low 3.4-5.0 [facility] ALP [Catalytic activity/Vol] 162 U/L High 46-116 [facility] ALT [Catalytic activity/Vol] 11 U/L Low 16-63 [facility] AST [Catalytic activity/Vol] 14 U/L Low 15-37 [facility] Bilirubin [Mass/Vol] 0.4 mg/dL 0.2-1.0 [facility] Calcium [Mass/Vol] 8.9 mg/dL 8.5-10.1 [facility] Chloride [Moles/Vol] 110 mmol/L High 98-107 [facility] CO2 [Moles/Vol] 26.3 mmol/L 21.0-32.0 [facility] Creatinine [Mass/Vol] 1.14 mg/dL 0.70-1.30 [facility] GFR/1.73 sq M.predicted MDRD (S/P/Bld) [Vol rate/Area] mL/min/{1.73_m2} >=60 mL/min/1.7 3m 2 [facility] Glucose [Mass/Vol] 143 mg/dL High 74-106 [facility] Potassium [Moles/Vol] 4.3 mmol/L 3.5-5.1 [facility] Protein [Mass/Vol] 6.9 g/dL 6.4-8.2 [facility] Sodium [Moles/Vol] 144 mmol/L 136-145 [facility] Urea nitrogen [Mass/Vol] 32.0 mg/dL High 7.0-18.0 [facility] Urea nitrogen/Creatinine [Mass ratio] 28.1 mg/mg [facility] Laboratory - Hematology and Cell countsOrdered By: Abdoulaye Marker on 06-15-2025 Immature granulocytes/100 WBC (Bld) 0.3 % 0.0-0.5 [facility] Leukocytes [#/volume] correc jacqueline for nucleated erythrocytes in Blood by Automated counOrdered By: Abdoulaye Marker on 06-15-2025 WBC corrected for nucl RBC Auto (Bld) [#/Vol] 8.9 10 3/uL 4.0-11.0 [facility] Lymphocytes Auto (Bld) [#/Vo l]Ordered By: Abdoulaye Marker on 06-15-2025 Lymphocytes (Bld) [#/Vol] 1.1 10 3/uL Low 1.2-3.8 [facility] Lymphocytes/100 WBC Auto (Bl d)Ordered By: Abdoulaye Marker on 06-15-2025 Lymphocytes/100 WBC (Bld) 12.3 % Low 20.5-60.0 [facility] MAGNESIUMon 06-15-2025 Magnesium [Mass/Vol] 1.7 mg/dL Low 1.9-2.7 [facility] Comment on above: Performed By: #### L [id number] ####[facility] (BEAKER)[address] [place] [address] Magnesium [Mass/Vol] 1.9 mg/dL Normal 1.9-2.7 [facility] Comment on above: Performed By: #### L [id number] ####[facility] (BEAKER)[address] [place] [address] MCH Auto (RBC) [Entitic mass ]Ordered By: Abdoulaye Marker on 06-15-2025 MCH (RBC) [Entitic mass] 28.0 pg 25.9-34.0 [facility] MCHC Auto (RBC) [Mass/Vol]Or dered By: Abdoulaye Marker on 06-15-2025 MCHC (RBC) [Mass/Vol] 30.9 g/dL 29.9-35.2 [facility] MCV Auto (RBC) [Entitic vol] Ordered By: Abdoulaye Marker on 06-15-2025 MCV (RBC) [Entitic vol] 90.7 fL 80.0-94.0 [facility] Monocytes Auto (Bld) [#/Vol] Ordered By: Abdoulaye Marker on 06-15-2025 Monocytes (Bld) [#/Vol] 0.5 10 3/uL 0.3-0.8 [facility] Monocytes/100 WBC Auto (Bld) Ordered By: Abdoulaye Marker on 06-15-2025 Monocytes/100 WBC (Bld) 5.3 % 1.7-12.0 [facility] NURSNOTEon 06-15-2025 NURSNOTE Bedside report to [facility] RN MICU Endo staff out of room Normal [facility] Neutrophils Auto (Bld) [#/Vo l]Ordered By: Abdoulaye Marker on 06-15-2025 Neutrophils (Bld) [#/Vol] 7.2 10 3/uL High 1.4-6.5 [facility] Neutrophils/100 WBC Auto (Bl d)Ordered By: Abdoulaye Marker on 06-15-2025 Neutrophils/100 WBC (Bld) 81.0 % High 43.0-75.0 [facility] No Panel InformationOrdered By: Abdoulaye Marker on 06-15-2025 Eosinophils # (Auto) 0.1 10 3/uL 0.0-0.7 [facility] Immature Granulocyte # (Auto) 0.03 10 3/uL 0.00-0.03 [facility] Troponin I High Sensitivity 8.4 pg/mL 4.0-76.1 [facility] Comment on above: CUT-OFF POINTS HAVE [...] IN CONJUNCTIONWITH OTHER DIAGNOSTIC AND CLINICAL INFORMATION. OPNOTEon 06-15-2025 OPNOTE Normal [facility] PHOSPHORUSon 06-15-2025 Magnesium [Mass/Vol] 2.8 mg/dL Normal 2.5-5.0 [facility] Comment on above: Performed By: #### L [id number] ####[facility] (BEAKER)[address] [place] [address] POCT GLUCOSE METER UNSOLICIT ED RESULTSon 06-15-2025 Glucose [Mass/Vol] 157 mg/dL High 70-105 [facility] Comment on above: Order Comment: Waive d Testing in the ED is performed under the ED CLIA certificate #[id number]. Result Comment: mike [email or web address] Performed By: #### L [id number] ####[facility] ([employer])[address] [place] [address] Glucose [Mass/Vol] 173 mg/dL High 70-105 [facility] Comment on above: Order Comment: Waive d Testing in the ED is performed under the ED CLIA certificate #[id number]. Result Comment: mmol den3 Performed By: #### L [id number] ####[facility] ([facility])[address] [place] [address] PROTIME-INRon 06-15-2025 INR IN PPP BY COAGULATION ASSAY 1.35 High 0.90-1.10 [facility] Comment on above: Result Comment: ACCC P RECOMMENDED INR FOR WARFARIN THERAPY CONDITION INRPROPHYLAXIS OF VENOUS THROMBOSIS 2-3(HIGH-RISK SURGERY)TREATMENT OF VENOUS THROMBOSIS 2-3TREATMENT OF PULMONARY EMBOLISM 2-3PREVENTION OF SYSTEMIC EMBOLISM: 2-3 ACUTE MYOCARDIAL INFARCTION TISSUE HEART VALVES VALVULAR HEART DISEASE ATRIAL FIBRILLATION RECURRENT SYSTEMIC EMBOLISMMECHANICAL HEART VALVE 2.5-3.5 FROM: ORAL ANTICOAGULANTS. MECHANISM OF ACTION, CLINICAL EFFECTIVENESS, AND OPTIMAL THERAPEUTIC RANGE. CHEST 1995;108:231S-246S. Performed By: #### L [id number] ####[facility] (BEAKER)[address] [place] [address] PROTHROMBIN TIME (PT) IN PPP BY COAGULATION ASSAY 16.7 Seconds High 12.3-14.8 [facility] Comment on above: Performed By: #### L [id number] ####[facility] (BEAKER)[address] [place] [address] Platelet mean volume Auto (B ld) [Entitic vol]Ordered By: Abdoulaye Marker on 06-15-2025 Platelet mean volume (Bld) [Entitic vol] 13.2 fL 9.5-13.5 [facility] Platelets Auto (Bld) [#/Vol] Ordered By: Abdoulaye Marker on 06-15-2025 Platelets (Bld) [#/Vol] 148 10 3/uL Low 150-450 [facility] Prothrombin time (PT)Ordered By: Abdoulaye Marker on 06-15-2025 PT Coag (PPP) [Time] 11.5 s 9.0-11.6 [facility] RBC Auto (Bld) [#/Vol]Ordere d By: Abdoulaye Marker on 06-15-2025 RBC (Bld) [#/Vol] 2.25 10 6/uL Low 4.70-6.10 [facility] Serum or plasma albumin/glob ulin mass ratioOrdered By: Ellen Crabtree on 06-15-2025 Albumin/Globulin [Mass ratio] 0.6 {ratio} [facility] Serum or plasma anion gap de terminationOrdered By: Ellen Crabtree on 06-15-2025 Anion gap [Moles/Vol] 12.0 mmol/L [facility] TRIGLYCERIDESon 06-15-2025 FASTING? unknown Normal [facility] Comment on above: Order Comment: Monit or triglycerides while patient is on propofol. Consult Nutrition if greater than 500 mg/dL. Performed By: #### L [id number] ####[facility] (BEAKER)[address] [place] [address] Magnesium [Mass/Vol] 125 mg/dL Normal <150 [facility] Comment on above: Order Comment: Monit or triglycerides while patient is on propofol. Consult Nutrition if greater than 500 mg/dL. Result Comment: TRIG LYCERIDE REFERENCE RANGE:20 YEARS AND OLDER CARDIOVASCULAR RISKLESS THAN 150 mg/dL LOW [id number] TO 199 mg/dL BORDERLINE [id number] mg/dL AND GREATER HIGH RISK Performed By: #### L [id number] ####[facility] (BEAKER)[address] [place] [address] TYPE AND SCREENon 06-15-2025 AB SCREEN Negative [facility] Comment on above: Performed By: #### L [id number] ####[facility], ABO group Nom (Bld) A Normal [facility] Comment on above: Performed By: #### L [id number] ####[facility], RH TYPE IN BLOOD Negative Normal [facility] Comment on above: Performed By: #### L [id number] ####[facility], Follow-Upon 06-12-2025 Follow-Up [facility] Orders Onlyon 06-06-2025 Orders Only [facility] ANESon 06-05-2025 ANES [facility] HPon 06-05-2025 HP [facility] NURSNOTEon 06-05-2025 NURSNOTE [facility] NURSNOTE CHG wipes and betadi ne nasal swabs completed. Normal [facility] Orders Onlyon 06-05-2025 Orders Only [facility] Orders Onlyon 05-30-2025 Orders Only [facility] Basophils Auto (Bld) [#/Vol] Ordered By: Ellen Crabtree on 05-29-2025 Basophils (Bld) [#/Vol] 0.0 10 3/uL 0.0-0.1 [facility] Basophils/100 WBC Auto (Bld) Ordered By: Ellen Crabtree on 05-29-2025 Basophils/100 WBC (Bld) 0.6 % 0.2-2.0 [facility] Eosinophils/100 WBC Auto (Bl d)Ordered By: Ellen Crabtree on 05-29-2025 Eosinophils/100 WBC (Bld) 6.9 % 0.9-7.0 [facility] Erythrocyte distribution wid th Auto (RBC) [Ratio]Ordered By: Ellen Crabtree on 05-29-2025 Erythrocyte distribution width (RBC) [Ratio] 14.4 % 11.0-15.0 [facility] Glomerular filtration rate ( GFR) estimation in non- AmericanOrdered By: Lora Lim on 05-29-2025 GFR/1.73 sq M.predicted among non-blacks MDRD (S/P/Bld) [Vol rate/Area] mL/min/{1.73_m2} >=60 mL/min/1.7 3m 2 [facility] Hematocrit Auto (Bld) [Volum e fraction]Ordered By: Ellen Crabtree on 05-29-2025 Hematocrit (Bld) [Volume fraction] 37.5 % Low 42.0-54.0 [facility] Hemoglobin [Mass/volume] in BloodOrdered By: Ellen Crabtree on 05-29-2025 Hemoglobin (Bld) [Mass/Vol] 11.5 g/dL Low 14.0-18.0 [facility] Laboratory - Chemistry and C hemistry - challengeOrdered By: Lora Lim on 05-29-2025 Calcium [Mass/Vol] 9.4 mg/dL 8.5-10.1 [facility] Chloride [Moles/Vol] 105 mmol/L 98-107 [facility] CO2 [Moles/Vol] 26.8 mmol/L 21.0-32.0 [facility] Creatinine [Mass/Vol] 1.16 mg/dL 0.70-1.30 [facility] GFR/1.73 sq M.predicted MDRD (S/P/Bld) [Vol rate/Area] mL/min/{1.73_m2} >=60 mL/min/1.7 3m 2 [facility] Glucose [Mass/Vol] 94 mg/dL 74-106 [facility] Potassium [Moles/Vol] 3.7 mmol/L 3.5-5.1 [facility] Sodium [Moles/Vol] 140 mmol/L 136-145 [facility] Urea nitrogen [Mass/Vol] 18.0 mg/dL 7.0-18.0 [facility] Urea nitrogen/Creatinine [Mass ratio] 15.5 mg/mg [facility] Laboratory - Hematology and Cell countsOrdered By: Ellen Crabtree on 05-29-2025 Immature granulocytes/100 WBC (Bld) 0.3 % 0.0-0.5 [facility] Leukocytes [#/volume] correc jacqueline for nucleated erythrocytes in Blood by Automated counOrdered By: Ellen Crabtree on 05-29-2025 WBC corrected for nucl RBC Auto (Bld) [#/Vol] 6.8 10 3/uL 4.0-11.0 [facility] Lymphocytes Auto (Bld) [#/Vo l]Ordered By: Ellen Crabtree on 05-29-2025 Lymphocytes (Bld) [#/Vol] 1.6 10 3/uL 1.2-3.8 [facility] Lymphocytes/100 WBC Auto (Bl d)Ordered By: Ellen Crabtree on 05-29-2025 Lymphocytes/100 WBC (Bld) 22.9 % 20.5-60.0 [facility] MCH Auto (RBC) [Entitic mass ]Ordered By: Ellen Crabtree on 05-29-2025 MCH (RBC) [Entitic mass] 27.4 pg 25.9-34.0 [facility] MCHC Auto (RBC) [Mass/Vol]Or dered By: Ellen Crabtree on 05-29-2025 MCHC (RBC) [Mass/Vol] 30.7 g/dL 29.9-35.2 [facility] MCV Auto (RBC) [Entitic vol] Ordered By: Ellen Crabtree on 05-29-2025 MCV (RBC) [Entitic vol] 89.3 fL 80.0-94.0 [facility] Monocytes Auto (Bld) [#/Vol] Ordered By: Ellen Crabtree on 05-29-2025 Monocytes (Bld) [#/Vol] 0.4 10 3/uL 0.3-0.8 [facility] Monocytes/100 WBC Auto (Bld) Ordered By: Ellen Crabtree on 05-29-2025 Monocytes/100 WBC (Bld) 6.5 % 1.7-12.0 [facility] Neutrophils Auto (Bld) [#/Vo l]Ordered By: Ellen Crabtree on 05-29-2025 Neutrophils (Bld) [#/Vol] 4.3 10 3/uL 1.4-6.5 [facility] Neutrophils/100 WBC Auto (Bl d)Ordered By: Ellen Crabtree on 05-29-2025 Neutrophils/100 WBC (Bld) 62.8 % 43.0-75.0 [facility] No Panel InformationOrdered By: Ellen Crabtree on 05-29-2025 Eosinophils # (Auto) 0.5 10 3/uL 0.0-0.7 [facility] Immature Granulocyte # (Auto) 0.02 10 3/uL 0.00-0.03 [facility] Platelet mean volume Auto (B ld) [Entitic vol]Ordered By: Ellen Crabtree on 05-29-2025 Platelet mean volume (Bld) [Entitic vol] 12.8 fL 9.5-13.5 [facility] Platelets Auto (Bld) [#/Vol] Ordered By: Ellen Crabtree on 05-29-2025 Platelets (Bld) [#/Vol] 298 10 3/uL 150-450 [facility] RBC Auto (Bld) [#/Vol]Ordere d By: Ellen Crabtree on 05-29-2025 RBC (Bld) [#/Vol] 4.20 10 6/uL Low 4.70-6.10 [facility] Serum or plasma anion gap de terminationOrdered By: Lora Lim on 05-29-2025 Anion gap [Moles/Vol] 11.9 mmol/L [facility] Orders Onlyon 04-25-2025 Orders Only Normal [facility] Ambulatory Visit Summaryon 0 04-24-2025 Ambulatory Visit [...] LYN MACE PA-C Where: [facility] [place] [address]- Medications What How Much When Instructions Unchanged [...] signed up for this yet, please contact [employer] at [phone] to get signed up today. Language Information Language assistance services are available as needed. Normal [facility] Documentationon 04-14-2025 Documentation Normal [facility] SEGMENTAL BLOOD PRESSUREon 0 04-11-2025 [place] [address] Cardiology Report Signed Patient: ALISIA CORREA MR#: [id number] : 1960 Acct:[id number] Age/Sex: 64 / M ADM Date: 04/11/25 Loc: CARD Attending Dr: Heidy Marin M.D. Ordering Physician: Heidy Marin M.D. Date of Service: 04/11/25 Procedure(s): CA segmental UE or LE MARIXA Accession Number(s): [id number] cc: ELLEN CRABTREE ; Heidy Marin M.D. 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 Interpretive Statements [...] M.D. Dictated By: ISMAEL JC Signed By: 04/11/25 2214 04/11/25 2214 DD/ 1548 TD/TT: Medical Clerical Assistant: [employer] [facility] [employer] Radiology, Radiologisatu long MD - 04/11/2025 [place] [address] Cardiology Report Signed Patient: ALISIA CORREA MR#: [id number] : 1960 Acct:[id number] Age/Sex: 64 / M ADM Date: 04/11/25 Loc: CARD Attending Dr: Heidy Marin M.D. Ordering Physician: Heidy Marin M.D. Date of Service: 04/11/25 Procedure(s): CA segmental UE or LE MARIXA Accession Number(s): [id number] cc: ELLEN CRABTREE ; Heidy Marin M.D. 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 Interpretive Statements [...] M.D. Dictated By: ISMAEL JC Signed By: 04/11/25 2214 04/11/254 DD/ 1548 TD/TT: Medical Clerical Assistant: [facility] Radiology Study observation (narrative) [facility] SEGMENTAL BLOOD PRESSUREOrde red By: Radiologist Radiology on 04-11-2025 [facility] Work Phone: 36on 04-07-2025 36 Per pt's request felipe nt monitor order was faxed to hospital. Confirmed 04/07/25 at 9:24 [facility] 36 Order was faxed to melly eason. Normal [facility] 36 [facility] 36on 04-05-2025 36 Vm is full, unable t o leave msg [facility] Telemedicineon 04-05-2025 Telemedicine [facility] o f [facility] CT BRAIN WO CONTon CT BRAIN WO [...] Samano MD on 04/02/2025 5:17 PM Normal [facility] Ambulatory Visit Summaryon 0 03-31-2025 Ambulatory [...] LYN MACE PA-C Where: [facility] [address] [address]- Thursday 10:00 AM EDT With: LYN MACE PA-C Where: [facility] [address] [place] [address]- Medications What How Much When Instructions Unchanged [...] for choosing us for your care. Normal [facility] FL SWALLOW MOTILITY FUNCTION on 03-29-2025 [place] SWALLOW [...] Norris DO on 03/29/2025 2:13 PM Normal [facility] Orders Onlyon 03-15-2025 Orders Only [id number] Lina Correa 1960 M Date Provider Department Center 03/15/2025 [id number] CHAKRABORTY HV CARD [facility] No family history on file Normal [facility] Ambulatory Visit Summaryon 0 03-10-2025 Ambulatory Visit [...] PA-C Where: [facility] [address] [place] [id number]- Medications What How Much When Instructions Unchanged [...] for choosing us for your care. Normal [facility] US Abdominal Aorta for vicki denise 02-28-2025 [place] [address] Ultrasound Report Signed Patient: ALISIA CORREA MR#: [id number] : 1960 Acct:[id number] Age/Sex: 64 / M ADM Date: 02/28/25 Loc: US Attending Dr: Heidy Marin M.D. Ordering Physician: Heidy Marin M.D. Date of Service: 02/28/25 Procedure(s): US abdominal aortic aneurysm Accession Number(s): [id number] cc: ELLEN CRABTREE ; Heidy Marin M.D. [address] [address] Patient Name: ALISIA CORREA MRN: [id number] date: 1960 Sex: M Assigned Patient Location: US Current Patient Location: US Accession/Order Number: [id number] Exam Date: 02/28/2025 11:36 Report Date: 02/28/2025 [...] Garcia M.D. 02/28/2025 11:39 AM Dictation Location: [place] [address] Electronically authenticated by: [id number] Date: 02/28/2025 11:39 Dictated By: Geneva Garcia M.D. Signed By: 02/28/25 1142 DD/ 1139 TD/TT: Medical Clerical Assistant: Janeth Arroyoogisatu long MD - 02/28/2025 [place] [address] Ultrasound Report Signed Patient: ALISIA CORREA MR#: [id number] : 1960 Acct:[id number] Age/Sex: 64 / M ADM Date: 02/28/25 Loc: US Attending Dr: Heidy Marin M.D. Ordering Physician: Heidy Marin M.D. Date of Service: 02/28/25 Procedure(s): US abdominal aortic aneurysm Accession Number(s): [id number] cc: ELLEN CRABTREE ; Heidy Marin M.D. The [address] [address] Patient Name: ALISIA CORREA MRN: [facility] [employer] [employer]:[id number] date: 1960 Sex: M Assigned Patient Location: [place] Current Patient Location: [place] Accession/Order Number: [id number] Exam Date: 02/28/2025 11:36 Report Date: 02/28/2025 [...] Garcia M.D. 02/28/2025 11:39 AM Dictation Location: [place] [address] Electronically authenticated by: [id number] Date: 02/28/2025 11:39 Dictated By: Geneva Garcia M.D. Signed By: 02/28/25 1142 DD/ 1139 TD/TT: Medical Clerical Assistant: [facility] Radiology Study observation (narrative) [facility] US Abdominal Aorta for vicki Turnerered By: Radiologist Radiology on 02-28-2025 [facility] [employer] Work Phone: Ambulatory Visit Summaryon 0 02-17-2025 [...] LYN MACE PA-C Where: [facility] [address] [address]- Thursday 10:00 AM EDT With: LYN MACE PA-C Where: [facility] [address] [address]- Thursday 10:00 AM EDT With: LYN MACE PA-C Where: [facility] [address] [address]- Medications What How Much When Instructions Unchanged [...] for choosing us for your care. Normal [facility] CT abdomen pelvis wo conon 0 02-15-2025 CT abdomen pelvis wo [facility] [place] [address] [place] [address] Scan Report Signed Patient: Weyer,Alisia L SR MR#: [id number] : 1960 Acct:[id number] Age/Sex: 64 / M ADM Date: 02/15/25 Loc: CT Room: Type: [facility] Attending Dr: Romel Leonardo MD Copies to: [...] Jr., D.O. 02/15/2025 3:42 PM Dictation Location: [place] [address] Transcribed By: [facility] 02/15/25 1542 Dictated By: Steven Shah Jr, DO 02/15/25 1538 Signed By: 02/15/25 1542 Normal [facility] Ambulatory Visit Summaryon 0 01-26-2025 [...] for choosing us for your care. Nathan [facility] Ambulatory Visit Summaryon 0 12-27-2024 Ambulatory Visit [...] MACE PA-C Where: [facility] [address] [place] [address]- You Need to Schedule the Following Appointments Follow Up with LYN MACE PA-C, URL When: In 1 month Where: [address] [place] [phone] Medications What How Much When Instructions New [...] if questions or concerns Pharmacy Information [facility]: [address], [place] [phone] Allergies Avelox (Wheal, Eruption, Dyspnea, Urticaria, Itching, [...] Testicular hyp (more content not included)... Normal [facility] Urology Office/Clinic Noteon 12-27-2024 Urology Office/Clinic Note [...] E&M of Est. Patient Moderate 30-39 Min [address]453 2. Urine retention (R33.9: Retention of urine, unspecified) Chronic. SP changed. Return in 4 weeks for next change. [1] Ordered: Change cystostomy tube/simple [id number] Orders: sulfamethoxazole-trimetho prim, 1 tab(s), Oral, MonWedFri for 90 day(s), 39 tab(s), Refill(s) 1, [facility], 177, cm, 03/15/24 11:26:00 EDT, Height/Length Dosing, 95.3, kg, 03/15/24 11:26:00 EDT, Weight Dosing Follow-up With When Contact Information RODRI KHAN, LYN Crum, URL In 1 month [address] [place] [address] Additional Instructions: Patient Education Urinary [...] LYN MACE PA-C 11/28/2024 16:01 EST Normal [facility] Comment on above: Result Comment: Elec tronically Signed By: LYN MACE PA-C\.br\Date and Time Signed: 12/27/24 12:17 EDT Basophils Auto (Bld) [#/Vol] on 12-13-2024 Basophils (Bld) [#/Vol] Automated basophil count 0.0-0.1 [facility] Basophils/100 WBC Auto (Bld) on 12-13-2024 Basophils/100 WBC (Bld) Automated basophil % 0.2-2.0 [facility] Eosinophils/100 WBC Auto (Bl d)on 12-13-2024 Eosinophils/100 WBC (Bld) Automated eosinophil % 0.9-7.0 [facility] Erythrocyte distribution wid th Auto (RBC) [Ratio]on 12-13-2024 Erythrocyte distribution width (RBC) [Ratio] Erythrocyte distribution width [Ratio] by Automated count High 11.0-15.0 [facility] Estimated glomerular filtrat ion rate (GFR) non- Americanon 12-13-2024 GFR/1.73 sq M.predicted among non-blacks MDRD (S/P/Bld) [Vol rate/Area] Estimated glomerular filtration rate (GFR) non- >=60 mL/min/1.7 3m 2 [facility] Globulin Calc (S) [Mass/Vol] on 12-13-2024 Globulin (S) [Mass/Vol] Serum globulin measurement by calculation (mass/volume) [facility] Hematocrit Auto (Bld) [Volum e fraction]on 12-13-2024 Hematocrit (Bld) [Volume fraction] Hematocrit [Volume Fraction] of Blood by Automated count Low 42.0-54.0 [facility] Hemoglobin [Mass/volume] in Bloodon 12-13-2024 Hemoglobin (Bld) [Mass/Vol] Hemoglobin [Mass/volume] in Blood Low 14.0-18.0 [facility] INR in Platelet poor plasma by Coagulation assayon 12-13-2024 INR Coag (PPP) [Relative time] INR in Platelet poor plasma by Coagulation assay [facility] Comment on above: DESIRED INR:2.0-3.0 CONDITIONS NOT LISTED BELOW2.5-3.5 FOR PROSTHETIC HEART VALVE REPLACEMENT2.5-3.5 RECURRENT THROMBOSIS Laboratory - Chemistry and C hemistry - challengeon 12-13-2024 Albumin [Mass/Vol] 3.7 g/dL 3.4-5.0 [facility] ALP [Catalytic activity/Vol] 91 U/L 46-116 [facility] ALT [Catalytic activity/Vol] U/L Low 16-63 [facility] AST [Catalytic activity/Vol] 18 U/L 15-37 [facility] Bilirubin [Mass/Vol] 0.4 mg/dL 0.2-1.0 [facility] Calcium [Mass/Vol] 9.0 mg/dL 8.5-10.1 [facility] Chloride [Moles/Vol] 108 mmol/L High 98-107 [facility] CO2 [Moles/Vol] 27.7 mmol/L 21.0-32.0 [facility] Creatinine [Mass/Vol] 1.20 mg/dL 0.70-1.30 [facility] GFR/1.73 sq M.predicted MDRD (S/P/Bld) [Vol rate/Area] mL/min/{1.73_m2} >=60 mL/min/1.7 3m 2 [facility] Glucose [Mass/Vol] 91 mg/dL 74-106 [facility] Lactate [Moles/Vol] 1.2 mmol/L 0.4-2.0 [facility] Potassium [Moles/Vol] 3.7 mmol/L 3.5-5.1 [facility] Protein [Mass/Vol] 7.1 g/dL 6.4-8.2 [facility] Sodium [Moles/Vol] 143 mmol/L 136-145 [facility] Urea nitrogen [Mass/Vol] 24.0 mg/dL High 7.0-18.0 [facility] Urea nitrogen/Creatinine [Mass ratio] 20.0 mg/mg [facility] Laboratory - Hematology and Cell countson 12-13-2024 Immature granulocytes/100 WBC (Bld) 0.2 % 0.0-0.5 [facility] - Microbiology an d Antimicrobial susceptibilityon 12-13-2024 SARS-CoV-2 (COVID-19) RNA KELLIE+probe Ql (Unsp spec) Negative NEGATIVE [facility] Comment on above: This test has [...] Amorphous sediment LM Ql (Urine sed) FEW [facility] Mucus Ql (Urine sed) NONE SEEN NONE SEEN [facility] Leukocytes [#/volume] correc jacqueline for nucleated erythrocytes in Blood by Automated counon 12-13-2024 WBC corrected for nucl RBC Auto (Bld) [#/Vol] Leukocytes [#/volume] corrected for nucleated erythrocytes in Blood by Automated coun 4.0-11.0 [facility] Lymphocytes Auto (Bld) [#/Vo l]on 12-13-2024 Lymphocytes (Bld) [#/Vol] Lymphocytes [#/volume] in Blood by Automated count 1.2-3.8 [facility] Lymphocytes/100 WBC Auto (Bl d)on 12-13-2024 Lymphocytes/100 WBC (Bld) Lymphocytes/100 leukocytes in Blood by Automated count 20.5-60.0 [facility] MCH Auto (RBC) [Entitic mass ]on 12-13-2024 MCH (RBC) [Entitic mass] MCH [Entitic mass] by Automated count 25.9-34.0 [facility] MCHC Auto (RBC) [Mass/Vol]on 12-13-2024 MCHC (RBC) [Mass/Vol] MCHC [Mass/volume] by Automated count 29.9-35.2 [facility] MCV Auto (RBC) [Entitic vol] on 12-13-2024 MCV (RBC) [Entitic vol] MCV [Entitic volume] by Automated count High 80.0-94.0 [facility] Monocytes Auto (Bld) [#/Vol] on 12-13-2024 Monocytes (Bld) [#/Vol] Automated blood monocyte count 0.3-0.8 [facility] Monocytes/100 WBC Auto (Bld) on 12-13-2024 Monocytes/100 WBC (Bld) Automated monocyte % 1.7-12.0 [facility] Neutrophils Auto (Bld) [#/Vo l]on 12-13-2024 Neutrophils (Bld) [#/Vol] Neutrophils [#/volume] in Blood by Automated count 1.4-6.5 [facility] Neutrophils/100 WBC Auto (Bl d)on 12-13-2024 Neutrophils/100 WBC (Bld) Automated neutrophil % 43.0-75.0 [facility] No Panel Informationon 12-13 Urine Bacteria LARGE #/HPF Abnormal NONE SEEN [facility] Urine Culture Reflexed YES-[facility] Urine Other Casts NONE SEEN #/LPF NONE SEEN [facility] Urine Other Crystals Seen #/HPF Abnormal None Seen [facility] Urine RBC 2-5 #/HPF Abnormal 0-2 [facility] Urine Squamous Epithelial Cells RARE #/LPF NONE/RARE [facility] Urine WBC 5-10 #/HPF Abnormal NONE SEEN [facility] Eosinophils # (Auto) 0.2 10 3/uL 0.0-0.7 [facility] Immature Granulocyte # (Auto) 0.01 10 3/uL 0.00-0.03 [facility] Troponin I High Sensitivity 4.4 pg/mL 4.0-76.1 [facility] Comment on above: CUT-OFF POINTS HAVE [...] INFORMATION. Bedside Influenza Type A Antigen Negative [facility] Comment on above: Negative for Flu A p rotein antigen. Infection due to Flu Acannot be ruled out. Flu A antigen in the sample may bebelow the detection limit of the test. Bedside Influenza Type B Antigen Negative [facility] Comment on above: Negative for Flu B p rotein antigen. Infection due to Flu Bcannot be ruled out. Flu B antigen in the sample may bebelow the detection limit of the test. Platelet mean volume Auto (B ld) [Entitic vol]on 12-13-2024 Platelet mean volume (Bld) [Entitic vol] Platelet mean volume [Entitic volume] in Blood by Automated count 9.5-13.5 [facility] Platelets Auto (Bld) [#/Vol] on 12-13-2024 Platelets (Bld) [#/Vol] Platelets [#/volume] in Blood by Automated count Low 150-450 [facility] Prothrombin time (PT)on 11-20 PT Coag (PPP) [Time] Prothrombin time (PT) 9.0- 11.6 [facility] RBC Auto (Bld) [#/Vol]on RBC (Bld) [#/Vol] Erythrocytes [#/volu me] in Blood by Automated count Low 4.70-6.10 [facility] Serum or plasma albumin/glob ulin mass ratioon 12-13-2024 Albumin/Globulin [Mass ratio] Serum or plasma albumin/globulin mass ratio [facility] Serum or plasma anion gap de terminationon 12-13-2024 Anion gap [Moles/Vol] Serum or plasma an ion gap determination [facility] Urine Cultureon 12-13-2024 Bacteria identified Cx Nom (U) ORGANISM: Pseudomonas aeruginosa (O:PSEAER) Carbapenemase [Type] in Isolate by Carba PT SKILLED Organism negative for carbapenemase (CRE) Watson Count >100,000 ORGANISM: Methicillin Resis Staph Aureus (O:MRSA) Watson Count >100,000 Aerobic SABI Charge (NMIC56) SUSCEPTIBILITY [...] RESISTANT TO ALL B-LACTAM DRUGS. PERFORMED BY: [place] [address] PATHOLOGIST QUALITY CONTROL ENGINEERING TECHNICIAN HEIDY MIRANDA M.D. Normal [facility] Comment on above: Performed By: #### C UU #### [facility] [address] Urine cultureOrdered By: Nakia Cramer on 12-13-2024 Bacteria identified Cx Nom (U) Abnormal [facility] Bacteria identified Cx Nom (U) Abnormal [facility] C Urineon 12-02-2024 Bacteria identified Cx Nom (U) Microbiology PROCEDURE: Urine Culture [R1] SOURCE: U CleanCatch BODY SITE: COLLECTED DATE/TIME: 11/28/2024 16:22 EST RECEIVED DATE/TIME: 11/29/2024 18:01 EST START DATE/TIME: 11/29/2024 18:01 EST FREE TEXT SOURCE: LYN MACE PA-C, PA-C, LYN Crum FINAL REPORTS Final Report [...] Locations R1: This test was performed at: [facility], [address] [place] [address], [address] , [place], Normal [facility] Comment on above: Performed By: #### 2 [id number] #### [facility] [address] [place] [id number] A1C with Estimated Average G love 11-28-2024 Glucose [Mass/Vol] 103 mg/dL Normal [facility] Comment on above: Order Comment: Reaso n for Exam Diabetes Result Comment: PERF ORMED BY: [facility] [address] [place], [place] [id number] PATHOLOGIST QUALITY CONTROL ENGINEERING TECHNICIAN HEIDY MIRANDA M.D. Performed By: #### G LULS #### Point of Care testing , HbA1c (Bld) [Mass fraction] 5.2 % Normal 4.3-5.6 [facility] Comment on above: Order Comment: Reaso n for Exam Diabetes Result Comment: Incr eased risk for diabetes: 5.7 - 6.4 diabetes: >6.4 glycemic control for adults with diabetes: <7.0 Performed By: #### G LULS #### Point of Care testing , Alanine aminotransferase [En zymatic activity/volume] in Serum or PlasmaOrdered By: Ellen Crabtree on 11-28-2024 ALT [Catalytic activity/Vol] Alanine aminotransferase [Enzymatic activity/volume] in Serum or Plasma Low 7-52 [facility] Albumin [Mass/volume] in Ser um or Plasma by Bromocresol green (BCG) dye binding methoOrdered By: Ellen Crabtree on 11-28-2024 Albumin BCG dye [Mass/Vol] Albumin [Mass/volume] in Serum or Plasma by Bromocresol green (BCG) dye binding metho 3.5-5.7 [facility] Alkaline phosphatase [Enzyma tic activity/volume] in Serum or PlasmaOrdered By: Ellen Crabtree on 11-28-2024 ALP [Catalytic activity/Vol] Alkaline phosphatase [Enzymatic activity/volume] in Serum or Plasma 34-104 [facility] Aspartate aminotransferase [ Enzymatic activity/volume] in Serum or PlasmaOrdered By: Ellen Crabtree on 11-28-2024 AST [Catalytic activity/Vol] Aspartate aminotransferase [Enzymatic activity/volume] in Serum or Plasma 13-39 [facility] Basophils Auto (Bld) [#/Vol] Ordered By: Ellen Crabtree on 11-28-2024 Basophils (Bld) [#/Vol] Automated basophil count 0.0-0.2 [facility] Basophils/100 WBC Auto (Bld) Ordered By: Ellen Crabtree on 11-28-2024 Basophils/100 WBC (Bld) Automated basophil % . [facility] Bilirubin.total [Mass/volume ] in Serum or PlasmaOrdered By: Ellen Crabtree on 11-28-2024 Bilirubin [Mass/Vol] Bilirubin.total [Mass/volume] in Serum or Plasma 0.3-1.0 [facility] Blood estimated average gluc ose determination by estimation from glycated hemoglobinOrdered By: Ellen Crabtree on 11-28-2024 Average glucose Estimated from glycated hemoglobin (Bld) [Mass/Vol] Glucose mean value [Mass/volume] in Blood Estimated from glycated hemoglobin [facility] Calcium [Mass/volume] in Ser um or PlasmaOrdered By: Ellen Crabtree on 11-28-2024 Calcium [Mass/Vol] Calcium [Mass/volume ] in Serum or Plasma 8.6-10.3 [facility] Carbon dioxide, total [Moles /volume] in Serum or PlasmaOrdered By: Ellen Crabtree on 11-28-2024 CO2 [Moles/Vol] Carbon dioxide, tota l [Moles/volume] in Serum or Plasma 21.0-31.0 [facility] Chloride [Moles/volume] in S jordy or PlasmaOrdered By: Ellen Crabtree on 11-28-2024 Chloride [Moles/Vol] Chloride [Moles/vol ume] in Serum or Plasma High 98-107 [facility] Cholesterol [Mass/volume] in Serum or PlasmaOrdered By: Ellen Crabtree on 11-28-2024 Cholesterol [Mass/Vol] Cholesterol [Mass /volume] in Serum or Plasma 140-200 [facility] Comment on above: Chol less than 200 m g/dl low riskChol 201-239 mg/dl borderline riskChol 240 mg/dl and greater high risk Cholesterol in HDL [Mass/vol ume] in Serum or PlasmaOrdered By: Ellen Crabtree on 11-28-2024 Cholesterol in HDL [Mass/Vol] Serum or plasma high density lipoprotein (HDL) cholesterol measurement [facility] Comment on above: HDL CHOL ATP-III CLA SSIFICATION Cardiovascular RiskHDL > or equal to 60 mg/dL LOWHDL < 40 mg/dL HIGH Cholesterol in LDL Calc [Mas s/Vol]Ordered By: Ellen Crabtree on 11-28-2024 Cholesterol in LDL [Mass/Vol] Cholesterol in LDL [Mass/volume] in Serum or Plasma by calculation 0-100 [facility] Comment on above: LDL ATP III CLASSIFI CATIONLDL less than 100 mg/dL OptimalLDL 100-129 mg/dL Near or above optimalLDL 130-159 mg/dL Borderline highLDL 160-189 mg/dL HighLDL greater than 189 mg/dL Very high Cholesterol in VLDL Calc [Ma ss/Vol]Ordered By: Ellen Crabtree on 11-28-2024 Cholesterol in VLDL [Mass/Vol] Cholesterol in VLDL [Mass/volume] in Serum or Plasma by calculation [facility] Complete Blood Count Auto Di ffon 11-28-2024 Basophils (Bld) [#/Vol] 0.0 10*3/uL Normal 0.0-0.2 [facility] Comment on above: Result Comment: PERF ORMED BY: [facility] [place] [address] PATHOLOGIST QUALITY CONTROL ENGINEERING TECHNICIAN HEIDY MIRANDA M.D. Performed By: #### G LULS #### Point of Care testing , Basophils/100 WBC (Bld) 0.5 % Normal . [facility] Comment on above: Performed By: #### G LULS #### Point of Care testing , Eosinophils (Bld) [#/Vol] 0.1 10*3/uL Normal 0.0-0.45 [facility] Comment on above: Performed By: #### G LULS #### Point of Care testing , Eosinophils/100 WBC (Bld) 3.0 % Normal . [facility] Comment on above: Performed By: #### G LULS #### Point of Care testing , Erythrocyte distribution width (RBC) [Ratio] 19.5 % High 12.0-14.8 [facility] Comment on above: Performed By: #### G LULS #### Point of Care testing , Hematocrit (Bld) [Volume fraction] 39.1 % Normal 38.8-50.0 [facility] Comment on above: Performed By: #### G LULS #### Point of Care testing , Hemoglobin (Bld) [Mass/Vol] 12.6 g/dL Low 13.0-17.0 [facility] Comment on above: Performed By: #### G LULS #### Point of Care testing , Lymphocytes (Bld) [#/Vol] 1.4 10*3/uL Normal 1.00-4.8 [facility] Comment on above: Performed By: #### G LULS #### Point of Care testing , Lymphocytes/100 WBC (Bld) 28.5 % Normal . [facility] Comment on above: Performed By: #### G LULS #### Point of Care testing , MCH (RBC) [Entitic mass] 29.4 pg Normal 27.5-35.2 [facility] Comment on above: Performed By: #### G LULS #### Point of Care testing , MCV (RBC) [Entitic vol] 91.3 fL Normal 83.5-101 [facility] Comment on above: Performed By: #### G LULS #### Point of Care testing , Mean Corpuscular HGB Conc 32.2 g/dL Low 32.5-35.6 [facility] Comment on above: Performed By: #### G LULS #### Point of Care testing , Monocytes (Bld) [#/Vol] 0.4 10*3/uL Normal 0.0-0.8 [facility] Comment on above: Performed By: #### G LULS #### Point of Care testing , Monocytes/100 WBC (Bld) 7.3 % Normal . [facility] Comment on above: Performed By: #### G LULS #### Point of Care testing , Neutrophils (Bld) [#/Vol] 3.0 10*3/uL Normal 1.8-7.7 [facility] Comment on above: Performed By: #### G LULS #### Point of Care testing , Neutrophils/100 WBC (Bld) 60.7 % Normal . [facility] Comment on above: Performed By: #### G LULS #### Point of Care testing , NRBC% 0.3 /100{WBC} Normal 0-0.5 [facility] Comment on above: Performed By: #### G LULS #### Point of Care testing , Platelet mean volume (Bld) [Entitic vol] 11.7 fL High 6.6-10.[address] [facility] Comment on above: Performed By: #### G LULS #### Point of Care testing , Platelets (Bld) [#/Vol] 126 10*3/uL Low 150-450 [facility] Comment on above: Performed By: #### G LULS #### Point of Care testing , RBC (Bld) [#/Vol] 4.28 10*6/uL Normal 3.90-5.60 [facility] Comment on above: Performed By: #### G LULS #### Point of Care testing , WBC (Bld) [#/Vol] 4.9 10*3/uL Normal 4.1-10.5 [facility] Comment on above: Performed By: #### G LULS #### Point of Care testing , Comprehensive Metabolic Pane oscar 11-28-2024 Albumin [Mass/Vol] 4.2 g/dL Normal 3.5-5.7 [facility] Comment on above: Order Comment: Reaso n for Exam Hyperlipidemia Reason for Exam: Hyperlipidemia Performed By: #### G LULS #### Point of Care testing , Albumin/Globulin [Mass ratio] 1.4 {ratio} Normal [facility] Comment on above: Order Comment: Reaso n for Exam Hyperlipidemia Reason for Exam: Hyperlipidemia Performed By: #### G LULS #### Point of Care testing , ALP [Catalytic activity/Vol] 85 U/L Normal 34-104 [facility] Comment on above: Order Comment: Reaso n for Exam Hyperlipidemia Reason for Exam: Hyperlipidemia Performed By: #### G LULS #### Point of Care testing , ALT [Catalytic activity/Vol] 3 U/L Low 7-52 [facility] Comment on above: Order Comment: Reaso n for Exam Hyperlipidemia Reason for Exam: Hyperlipidemia Performed By: #### G LULS #### Point of Care testing , Anion gap [Moles/Vol] 8.8 mmol/L Normal 6.0-15.0 [facility] Comment on above: Order Comment: Reaso n for Exam Hyperlipidemia Reason for Exam: Hyperlipidemia Performed By: #### G LULS #### Point of Care testing , AST [Catalytic activity/Vol] 17 U/L Normal 13-39 [facility] Comment on above: Order Comment: Reaso n for Exam Hyperlipidemia Reason for Exam: Hyperlipidemia Performed By: #### G LULS #### Point of Care testing , Bilirubin [Mass/Vol] 0.4 mg/dL Normal 0.3-1.0 [facility] Comment on above: Order Comment: Reaso n for Exam Hyperlipidemia Reason for Exam: Hyperlipidemia Performed By: #### G LULS #### Point of Care testing , Calcium [Mass/Vol] 9.9 mg/dL Normal 8.6-10.3 [facility] Comment on above: Order Comment: Reaso n for Exam Hyperlipidemia Reason for Exam: Hyperlipidemia Performed By: #### G LULS #### Point of Care testing , Chloride [Moles/Vol] 111 mmol/L High 98-107 [facility] Comment on above: Order Comment: Reaso n for Exam Hyperlipidemia Reason for Exam: Hyperlipidemia Performed By: #### G LULS #### Point of Care testing , CO2 [Moles/Vol] 27.9 mmol/L Normal 21.0-31.0 [facility] Comment on above: Order Comment: Reaso n for Exam Hyperlipidemia Reason for Exam: Hyperlipidemia Performed By: #### G LULS #### Point of Care testing , Creatinine [Mass/Vol] 1.29 mg/dL Normal 0.70-1.30 [facility] Comment on above: Order Comment: Reaso n for Exam Hyperlipidemia Reason for Exam: Hyperlipidemia Performed By: #### G LULS #### Point of Care testing , GFR/1.73 sq M.predicted MDRD (S/P/Bld) [Vol rate/Area] mL/min/{1.73_m2} Normal [facility] Comment on above: Order Comment: Reaso n for Exam Hyperlipidemia Reason for Exam: Hyperlipidemia Performed By: #### G LULS #### Point of Care testing , Globulin (S) [Mass/Vol] 2.9 g/dL Normal [facility] Comment on above: Order Comment: Reaso n for Exam Hyperlipidemia Reason for Exam: Hyperlipidemia Performed By: #### G LULS #### Point of Care testing , Glucose [Mass/Vol] 90 mg/dL Normal 70-100 [facility] Comment on above: Order Comment: Reaso n for Exam Hyperlipidemia Reason for Exam: Hyperlipidemia Result Comment: [place] Glucose Reference Range is dependent on time and content of last meal. Glucose of more than 200 mg/dL in a nonstressed, ambulatory subject supports the diagnosis of Diabetes Mellitus. ADA recommended reference range Performed By: #### G LULS #### Point of Care testing , Potassium [Moles/Vol] 3.7 mmol/L Normal 3.5-5.1 [facility] Comment on above: Order Comment: Reaso n for Exam Hyperlipidemia Reason for Exam: Hyperlipidemia Performed By: #### G LULS #### Point of Care testing , Protein [Mass/Vol] 7.1 g/dL Normal 6.4-8.9 [facility] Comment on above: Order Comment: Reaso n for Exam Hyperlipidemia Reason for Exam: Hyperlipidemia Performed By: #### G LULS #### Point of Care testing , Sodium [Moles/Vol] 144 mmol/L Normal 136-145 [facility] Comment on above: Order Comment: Reaso n for Exam Hyperlipidemia Reason for Exam: Hyperlipidemia Performed By: #### G LULS #### Point of Care testing , Urea nitrogen [Mass/Vol] 24 mg/dL Normal 7-25 [facility] Comment on above: Order Comment: Reaso n for Exam Hyperlipidemia Reason for Exam: Hyperlipidemia Performed By: #### G LULS #### Point of Care testing , Creatinine [Mass/volume] in Serum or PlasmaOrdered By: Ellen Crabtree on 11-28-2024 Creatinine [Mass/Vol] Creatinine [Mass/v olume] in Serum or Plasma 0.70-1.30 [facility] Eosinophils Auto (Bld) [#/Vo l]Ordered By: Ellen Crabtree on 11-28-2024 Eosinophils (Bld) [#/Vol] Automated eosinophil count 0.0-0.45 [facility] Eosinophils/100 WBC Auto (Bl d)Ordered By: Ellen Crabtree on 11-28-2024 Eosinophils/100 WBC (Bld) Automated eosinophil % . [facility] Erythrocyte distribution wid th Auto (RBC) [Ratio]Ordered By: Ellen Crabtree on 11-28-2024 Erythrocyte distribution width (RBC) [Ratio] Erythrocyte distribution width [Ratio] by Automated count High 12.0-14.8 [facility] Globulin Calc (S) [Mass/Vol] Ordered By: Ellen Crabtree on 11-28-2024 Globulin (S) [Mass/Vol] Serum globulin measurement by calculation (mass/volume) [facility] Glucose [Mass/volume] in Ser um or PlasmaOrdered By: Ellen Crabtree on 11-28-2024 Glucose [Mass/Vol] Glucose [Mass/volume ] in Serum or Plasma 70-100 [facility] Comment on above: ADA recommended refe rence rangeRandom Glucose Reference Range is dependent on time and content of last meal. Glucose of more than 200 mg/dL in a nonstressed, ambulatory subject supports the diagnosis of Diabetes Mellitus. Hematocrit Auto (Bld) [Volum e fraction]Ordered By: Ellen Crabtree on 11-28-2024 Hematocrit (Bld) [Volume fraction] Hematocrit [Volume Fraction] of Blood by Automated count 38.8-50.0 [facility] Hemoglobin A1c/Hemoglobin.to jesus in BloodOrdered By: Ellen Crabtree on 11-28-2024 HbA1c (Bld) [Mass fraction] Hemoglobin A1c percentage 4.3-5.6 [facility] Comment on above: Increased risk for d iabetes: 5.7 - 6.4diabetes: >6.4glycemic control for adults with diabetes: <7.0 Hemoglobin [Mass/volume] in BloodOrdered By: Ellen Crabtree on 11-28-2024 Hemoglobin (Bld) [Mass/Vol] Hemoglobin [Mass/volume] in Blood Low 13.0-17.0 [facility] Leukocytes [#/volume] correc jacqueline for nucleated erythrocytes in Blood by Automated counOrdered By: Ellen Crabtree on 11-28-2024 WBC corrected for nucl RBC Auto (Bld) [#/Vol] Leukocytes [#/volume] corrected for nucleated erythrocytes in Blood by Automated coun 4.1-10.5 [facility] Lipid Panelon 11-28-2024 Cholesterol [Mass/Vol] 152 mg/dL Normal 140-200 [facility] Comment on above: Order Comment: Reaso n for Exam Hyperlipidemia Reason for Exam: Hyperlipidemia Result Comment: Chol less than 200 mg/dl low risk Chol 201-239 mg/dl borderline risk Chol 240 mg/dl and greater high risk Performed By: #### G LULS #### Point of Care testing , Cholesterol in HDL [Mass/Vol] 40 mg/dL Normal 23-92 [facility] Comment on above: Order Comment: Reaso n for Exam Hyperlipidemia Reason for Exam: Hyperlipidemia Result Comment: HDL CHOL ATP-III CLASSIFICATION Cardiovascular Risk HDL > or equal to 60 mg/dL LOW HDL < 40 mg/dL HIGH Performed By: #### G LULS #### Point of Care testing , Cholesterol.total/Chol esterol in HDL [Mass ratio] 3.8 {ratio} Normal <5.0 [facility] Comment on above: Order Comment: Reaso n for Exam Hyperlipidemia Reason for Exam: Hyperlipidemia Performed By: #### G LULS #### Point of Care testing , LDL Cholesterol,Calculated 85 mg/dL Normal 0-100 [facility] Comment on above: Order Comment: Reaso n for Exam Hyperlipidemia Reason for Exam: Hyperlipidemia Result Comment: LDL ATP III CLASSIFICATION LDL less than 100 mg/dL Optimal LDL 100-129 mg/dL Near or above optimal LDL 130-159 mg/dL Borderline high LDL 160-189 mg/dL High LDL greater than 189 mg/dL Very high Performed By: #### G LULS #### Point of Care testing , Triglyceride w/Reflex 134 mg/dL Normal 0-149 [facility] Comment on above: Order Comment: Reaso n for Exam Hyperlipidemia Reason for Exam: Hyperlipidemia Result Comment: TRIG ATP III CLASSIFICATION TRIG less than 150 mg/dL Normal TRIG 150-199 mg/dL Borderline high TRIG 200-500 mg/dL High TRIG greater than 500 mg/dL Very high Standard traceable to the Center for Disease Conrtrol and Prevention (CDC) test method. Performed By: #### G LULS #### Point of Care testing , VLDL CHOLESTEROL 26 mg/dL Normal [facility] Comment on above: Order Comment: Reaso n for Exam Hyperlipidemia Reason for Exam: Hyperlipidemia Performed By: #### G LULS #### Point of Care testing , Lymphocytes Auto (Bld) [#/Vo l]Ordered By: Ellen Crabtree on 11-28-2024 Lymphocytes (Bld) [#/Vol] Lymphocytes [#/volume] in Blood by Automated count 1.00-4.8 [facility] Lymphocytes/100 WBC Auto (Bl d)Ordered By: Ellen Crabtree on 11-28-2024 Lymphocytes/100 WBC (Bld) Lymphocytes/100 leukocytes in Blood by Automated count . [facility] MCH Auto (RBC) [Entitic mass ]Ordered By: Ellen Crabtree on 11-28-2024 MCH (RBC) [Entitic mass] MCH [Entitic mass] by Automated count 27.5-35.2 [facility] MCHC Auto (RBC) [Mass/Vol]Or dered By: Ellen Crabtree on 11-28-2024 MCHC (RBC) [Mass/Vol] MCHC [Mass/volume] by Automated count Low 32.5-35.6 [facility] MCV Auto (RBC) [Entitic vol] Ordered By: Ellen Crabtree on 11-28-2024 MCV (RBC) [Entitic vol] MCV [Entitic volume] by Automated count 83.5-101 [facility] Monocytes Auto (Bld) [#/Vol] Ordered By: Ellen Crabtree on 11-28-2024 Monocytes (Bld) [#/Vol] Automated blood monocyte count 0.0-0.8 [facility] Monocytes/100 WBC Auto (Bld) Ordered By: Ellen Crabtree on 11-28-2024 Monocytes/100 WBC (Bld) Automated monocyte % . [facility] Neutrophils Auto (Bld) [#/Vo l]Ordered By: Ellen Crabtree on 11-28-2024 Neutrophils (Bld) [#/Vol] Neutrophils [#/volume] in Blood by Automated count 1.8-7.7 [facility] Neutrophils/100 WBC Auto (Bl d)Ordered By: Ellen Crabtree on 11-28-2024 Neutrophils/100 WBC (Bld) Automated neutrophil % . [facility] No Panel InformationOrdered By: Ellen Crabtree on 11-28-2024 Estimated GFR (CKD-EPI) > 60.0 mL/Min [facility] Creatinine Clearance (Chem N/A [facility] Nucleated erythrocytes [Pres ence] in Blood by Automated countOrdered By: Ellen Crabtree on 11-28-2024 Nucleated RBC Auto Ql (Bld) Nucleated erythrocytes [Presence] in Blood by Automated count 0-0.5 [facility] PSA Screen (Yearly Only)on 0 11-28-2024 PSA Screen (Yearly Only) 0.710 ng/mL Normal 0.000-4.00 0 [facility] Comment on above: Order Comment: Is pa tient <50 yrs? Medicare does not pay <50.: N What is the date of the last PSA Screen?: [id number] Is Medicare the insurance?: Y Did you verify eligibility (Dx Time) check TestViewGp: YES TO ALL Result Comment: Aura batista tumor marker results determined by assays using different manufacturers or methods may not be comparable. [facility] greenhouse specialist and method: JoyTunesEL DXI, CHEMILUMINESCENT IMMUNOASSAY. PERFORMED BY: [facility] [address] [place] [address] PATHOLOGIST QUALITY CONTROL ENGINEERING TECHNICIAN HEIDY MIRANDA M.D. Performed By: #### G LULS #### Point of Care testing , Platelet mean volume Auto (B ld) [Entitic vol]Ordered By: Ellen Crabtree on 11-28-2024 Platelet mean volume (Bld) [Entitic vol] Platelet mean volume [Entitic volume] in Blood by Automated count High 6.6-10.1 [facility] Platelets Auto (Bld) [#/Vol] Ordered By: Ellen Crabtree on 11-28-2024 Platelets (Bld) [#/Vol] Platelets [#/volume] in Blood by Automated count Low 150-450 [facility] Potassium [Moles/volume] in Serum or PlasmaOrdered By: Ellen Crabtree on 11-28-2024 Potassium [Moles/Vol] Potassium [Moles/v olume] in Serum or Plasma 3.5-5.1 [facility] Prostate specific Ag [Mass/v olume] in Serum or PlasmaOrdered By: Ellen Crabtree on 11-28-2024 Prostate specific Ag [Mass/Vol] Prostate specific Ag [Mass/volume] in Serum or Plasma 0.000-4.00 0 [facility] Comment on above: Serial tumor marker results determined by assays using different manufacturers or methods may not be comparable.[facility] greenhouse specialist and method:RunAlong DXI, CHEMILUMINESCENT IMMUNOASSAY. Protein [Mass/volume] in Ser um or PlasmaOrdered By: Ellen Crabtree on 11-28-2024 Protein [Mass/Vol] Protein [Mass/volume ] in Serum or Plasma 6.4-8.9 [facility] RBC Auto (Bld) [#/Vol]Ordere d By: Ellen Crabtree on 11-28-2024 RBC (Bld) [#/Vol] Erythrocytes [#/volu me] in Blood by Automated count 3.90-5.60 [facility] Serum or plasma albumin/glob ulin mass ratioOrdered By: Ellen Crabtree on 11-28-2024 Albumin/Globulin [Mass ratio] Serum or plasma albumin/globulin mass ratio [facility] Serum or plasma anion gap de terminationOrdered By: Ellen Crabtree on 11-28-2024 Anion gap [Moles/Vol] Serum or plasma an ion gap determination 6.0-15.0 [facility] Serum or plasma total choles terol/high density lipoprotein (HDL) cholesterol mass ratOrdered By: Ellen Crabtree on 11-28-2024 Cholesterol.total/Chol esterol in HDL [Mass ratio] Serum or plasma total cholesterol/high density lipoprotein (HDL) cholesterol mass rat <5.0 [facility] Sodium [Moles/volume] in Ser um or PlasmaOrdered By: Ellen Crabtree on 11-28-2024 Sodium [Moles/Vol] Sodium [Moles/volume ] in Serum or Plasma 136-145 [facility] Thyroid Stimulating Hormoneo n 11-28-2024 TSH Qn 1.06 m[IU]/L Normal 0.45-5.[address] [facility] Comment on above: Order Comment: Reaso n for Exam Hyperlipidemia Reason for Exam: Hyperlipidemia Result Comment: PERF ORMED BY: [facility] [place] [address] PATHOLOGIST QUALITY CONTROL ENGINEERING TECHNICIAN HEIDY MIRANDA M.D. Performed By: #### G LULS #### Point of Care testing , Thyrotropin [Units/volume] i n Serum or PlasmaOrdered By: Ellen Crabtree on 11-28-2024 TSH Qn Thyrotropin [Units/volume] in Serum or Plasma 0.45-5.33 [facility] Triglyceride [Mass/volume] i n Serum or PlasmaOrdered By: Ellen Crabtree on 11-28-2024 Triglyceride [Mass/Vol] Triglyceride [Mass/volume] in Serum or Plasma 0-149 [facility] Comment on above: TRIG ATP III CLASSIF ICATIONTRIG less than 150 mg/dL NormalTRIG 150-199 mg/dL Borderline highTRIG 200-500 mg/dL High TRIG greater than 500 mg/dL Very highStandard traceable to the Center for Disease Conrtrol and Prevention (CDC) test method. Urea nitrogen [Mass/volume] in Serum or PlasmaOrdered By: Ellen Crabtree on 11-28-2024 Urea nitrogen [Mass/Vol] Urea nitrogen [Mass/volume] in Serum or Plasma 7-25 [facility] Urology Office/Clinic Noteon 11-28-2024 Urology Office/Clinic [...] prior to abx. Ordered: Change cystostomy tube/simple 63508 E&M of Est. Patient Low 20-29 Min 12268 2. Urinary retention (R33.9: Retention of urine, unspecified) Chronic. SP changed. Return in 4 weeks for next change. Ordered: Change cystostomy tube/simple 05801 Follow-up With When Contact Information RODRI KHAN, LYN Crum, URL In 1 month [address] [place] [address] Additional Instructions: Patient Education Antibiotic [...] pneumococcal 23-valent vaccine 08/13/1995 Recorded Normal [facility] Comment on above: Result Comment: Elec tronically Signed By: RODRI KHAN, LYN Crum\.br\Date and Time Signed: 11/28/24 16:28 EST WBC Auto (Bld) [#/Vol]Ordere d By: Ellen Crabtree on 11-28-2024 WBC (Bld) [#/Vol] Leukocytes [#/volume ] in Blood by Automated count 4.1-10.5 [facility] Ambulatory Visit Summaryon 0 10-28-2024 Ambulatory [...] PA-C Where: [facility] [address] [place] [address] [place] [address]- Medications What How Much When Instructions Unchanged [...] for choosing us for your care. Normal [facility] C Urineon 09-29-2024 Bacteria identified Cx [...] Locations R1: This test was performed at: [facility], [address] [place] [address], [address] [place] [address], Normal [facility] Comment on above: Performed By: #### 2 [id number] #### [facility] [address] [place] [address] [facility] Main [address] [address] [address] Scan Report Signed Patient: Alisia Correa MR#: [id number] : 1960 Acct:[id number] Age/Sex: 63 / M ADM Date: 09/27/24 Loc: ER Room: Type: PRE ER Attending Dr: Copies to: Benitez Ortega DO Ordering Provider: Benitez Ortega DO Date of Service: 09/27/24 CT/CT cervical spine wo con: fall ([id number]) CT/CT facial bones wo con: fall ([id number]) CT/CT head/brain wo con: fall CT BRAIN/FACIAL [...] FRACTURE Impression dictated by: Steven Shah Jr., D.OAlejandro09/27/2024 5:11 PM Dictation Location: [place] [address] Transcribed By: [facility] 09/27/241710 Dictated By: Steven Shah Jr, DO 09/27/24 1700 Signed By: 09/27/24 171 Normal [facility] ECG 12 lead ECGon 09-27-2024 ECG 12 lead ECG [facility] Main [place] [address] [place] [address] Electrocardiograph Report Signed Patient: Alisia Correa SR MR#: [id number] : 1960 Acct:[id number] Age/Sex: 63 / M ADM Date: 09/27/24 Loc: ER Room: Type: [facility] ER Attending Dr: Ordering Provider: Benitez Ortega [...] sinus rhythm Confirmed by Benitez ORTEGA DO ([id number]) on 09/27/2024 8:17:17 PM Referred By: Electronically Signed By: Benitez ORTEGA DO Transcribed By: MUS Signed By Benitez Ortega DO 1 11/28/232016 Normal [facility] Urology Office/Clinic Noteon 09-27-2024 Urology Office/Clinic Note [...] E&M of New Patient Low 30-44 Min 43883 2. Urinary retention (R33.9: Retention of urine, unspecified) [place] changed. Return in 4 weeks for next change. Ordered: Change cystostomy tube/simple 16324 E&M of New Patient Low 30-44 Min 74985 Follow-up With When Contact Information RODRI KHAN, LYN Crum, URL In 1 month [address] [place] [address] Additional Instructions: Patient Education Indwelling Urinary Catheter [...] pneumococcal 23-valent vaccine 08/13/1995 Recorded Normal [facility] Comment on above: Result Comment: Elec tronically Signed By: RODRI KHAN, LYN Crum\.br\Date and Time Signed: 09/27/24 12:38 EST C [...] Locations R1: This test was performed at: [employer] [facility], [address] [place] [address], [address] , [place], Normal [facility] Comment on above: Performed By: #### 2 [id number] #### [facility] [address] [place] [address] Ambulatory Visit Summaryon 0 06-09-2024 Ambulatory Visit [...] Harry Where: [facility] [address] [place] [address]- Medications What How Much When Instructions Unchanged [...] for choosing us for your care. Normal [facility] Basophils Auto (Bld) [#/Vol] on 04-27-2024 Basophils (Bld) [#/Vol] 0.0 10 3/uL 0.0-0.1 [facility] Basophils/100 WBC Auto (Bld) on 04-27-2024 Basophils/100 WBC (Bld) 0.1 % Low 0.2-2.0 [facility] Eosinophils/100 WBC Auto (Bl d)on 04-27-2024 Eosinophils/100 WBC (Bld) 0.0 % Low 0.9-7.0 [facility] Erythrocyte distribution wid th Auto (RBC) [Ratio]on 04-27-2024 Erythrocyte distribution width (RBC) [Ratio] 15.6 % High 11.0-15.0 [facility] Estimated glomerular filtrat ion rate (GFR) non- Americanon 04-27-2024 GFR/1.73 sq M.predicted among non-blacks MDRD (S/P/Bld) [Vol rate/Area] 37 mL/min/{1.73_m2} Low >=60 [facility] Globulin Calc (S) [Mass/Vol] on 04-27-2024 Globulin (S) [Mass/Vol] 4.5 g/dL [facility] Hematocrit Auto (Bld) [Volum e fraction]on 04-27-2024 Hematocrit (Bld) [Volume fraction] 30.1 % Low 42.0-54.0 [facility] Hemoglobin [Mass/volume] in Bloodon 04-27-2024 Hemoglobin (Bld) [Mass/Vol] 9.6 g/dL Low 14.0-18.0 [facility] - Chemistry and C hemistry - challengeon 04-27-2024 Albumin [Mass/Vol] 2.1 g/dL Low 3.4-5.0 [facility] ALP [Catalytic activity/Vol] 121 U/L High 46-116 [facility] ALT [Catalytic activity/Vol] U/L Low 16-63 [facility] AST [Catalytic activity/Vol] 10 U/L Low 15-37 [facility] Bilirubin [Mass/Vol] 0.3 mg/dL 0.2-1.0 [facility] Calcium [Mass/Vol] 8.6 mg/dL 8.5-10.1 [facility] Chloride [Moles/Vol] 105 mmol/L 98-107 [facility] CO2 [Moles/Vol] 30.6 mmol/L 21.0-32.0 [facility] Creatinine [Mass/Vol] 1.83 mg/dL High 0.70-1.30 [facility] GFR/1.73 sq M.predicted MDRD (S/P/Bld) [Vol rate/Area] 45 mL/min/{1.73_m2} Low >=60 [facility] Glucose [Mass/Vol] 153 mg/dL High 74-106 [facility] Potassium [Moles/Vol] 4.2 mmol/L 3.5-5.1 [facility] Protein [Mass/Vol] 6.6 g/dL 6.4-8.2 [facility] Sodium [Moles/Vol] 139 mmol/L 136-145 [facility] Urea nitrogen [Mass/Vol] 41.0 mg/dL High 7.0-18.0 [facility] Urea nitrogen/Creatinine [Mass ratio] 22.4 mg/mg [facility] - Hematology and Cell countson 04-27-2024 Immature granulocytes/100 WBC (Bld) 0.4 % 0.0-0.5 [facility] Leukocytes [#/volume] correc jacqueline for nucleated erythrocytes in Blood by Automated counon 04-27-2024 WBC corrected for nucl RBC Auto (Bld) [#/Vol] 6.8 10 3/uL 4.0-11.0 [facility] Lymphocytes Auto (Bld) [#/Vo l]on 04-27-2024 Lymphocytes (Bld) [#/Vol] 0.8 10 3/uL Low 1.2-3.8 [facility] Lymphocytes/100 WBC Auto (Bl d)on 04-27-2024 Lymphocytes/100 WBC (Bld) 12.3 % Low 20.5-60.0 [facility] MCH Auto (RBC) [Entitic mass ]on 04-27-2024 MCH (RBC) [Entitic mass] 28.0 pg 25.9-34.0 [facility] MCHC Auto (RBC) [Mass/Vol]on 04-27-2024 MCHC (RBC) [Mass/Vol] 31.9 g/dL 29.9-35.2 [facility] MCV Auto (RBC) [Entitic vol] on 04-27-2024 MCV (RBC) [Entitic vol] 87.8 fL 80.0-94.0 [facility] Monocytes Auto (Bld) [#/Vol] on 04-27-2024 Monocytes (Bld) [#/Vol] 0.2 10 3/uL Low 0.3-0.8 [facility] Monocytes/100 WBC Auto (Bld) on 04-27-2024 Monocytes/100 WBC (Bld) 3.1 % 1.7-12.0 [facility] Neutrophils Auto (Bld) [#/Vo l]on 04-27-2024 Neutrophils (Bld) [#/Vol] 5.7 10 3/uL 1.4-6.5 [facility] Neutrophils/100 WBC Auto (Bl d)on 04-27-2024 Neutrophils/100 WBC (Bld) 84.1 % High 43.0-75.0 [facility] No Panel Informationon 04-27 Eosinophils # (Auto) 0.0 10 3/uL 0.0-0.7 [facility] Immature Granulocyte # (Auto) 0.03 10 3/uL 0.00-0.03 [facility] Platelet mean volume Auto (B ld) [Entitic vol]on 04-27-2024 Platelet mean volume (Bld) [Entitic vol] 12.9 fL 9.5-13.5 [facility] Platelets Auto (Bld) [#/Vol] on 04-27-2024 Platelets (Bld) [#/Vol] 173 10 3/uL 150-450 [facility] RBC Auto (Bld) [#/Vol]on RBC (Bld) [#/Vol] 3.43 10 6/uL Low 4.70-6.10 [facility] Serum or plasma albumin/glob ulin mass ratioon 04-27-2024 Albumin/Globulin [Mass ratio] 0.5 {ratio} [facility] Serum or plasma anion gap de terminationon 04-27-2024 Anion gap [Moles/Vol] 7.6 mmol/L [facility] Ammonium urate crystals dete ction in stone by infrared spectroscopyon 04-26-2024 Ammonium urate crystals Infrared spectroscopy Ql (Stone) TNP . [facility] Basophils Auto (Bld) [#/Vol] on 04-26-2024 Basophils (Bld) [#/Vol] 0.0 10 3/uL 0.0-0.1 [facility] Basophils/100 WBC Auto (Bld) on 04-26-2024 Basophils/100 WBC (Bld) 0.1 % Low 0.2-2.0 [facility] Calcium bilirubinate measure menton 04-26-2024 Calcium bilirubinate (Stone) [Mass fraction] TNP . [facility] Calcium carbonate (Stone) [M ass fraction]on 04-26-2024 Stone Calcium Carbonate TNP . [facility] Calcium hydrogen phosphate d ihydrate (Stone) [Mass fraction]on 04-26-2024 Stone Calcium Hydrogen Phosphate TNP . [facility] Calcium oxalate dihydrate cr ystals detection in stone by infrared spectroscopyon 04-26-2024 Calcium oxalate dihydrate crystals Infrared spectroscopy Ql (Stone) 60 % . [facility] Calcium oxalate monohydrate crystal detectionon 04-26-2024 Calcium oxalate monohydrate crystals Infrared spectroscopy Ql (Stone) 40 % . [facility] Calcium phosphate measuremen ton 04-26-2024 Calcium phosphate (Stone) [Mass fraction] TNP . [facility] Calculus analysis interpreta tion in stoneon 04-26-2024 Calculus analysis [Interp] TNP . [facility] Calculus analysis [Interp] Comment . [facility] Comment on above: Physician questions regarding Calculi Analysis contactLabCorp at: [phone]. Calculus analysis with calcu silvia photography interpretation in stoneon 04-26-2024 Calculus analysis with calculus photography [Interp] Comment . [facility] Comment on above: Photograph will foll ow under a separate cover Cellular material measuremen t in stone by estimated (mass/mass)on 04-26-2024 Cellular material Est (Stone) [Mass/Mass] TNP . [facility] Cholesterol [Mass/volume] in Serum or Plasmaon 04-26-2024 Cholesterol [Mass/Vol] TNP . [facility] Composition of stoneon 04-26 Composition Nom (Stone) Comment . [facility] Comment on above: Percentage (Represen ts the % composition) Cystine measurementon 2023 Cystine (Unsp spec) [Moles/Vol] TNP . [facility] Determination of color of ca lculuson 04-26-2024 Color (Stone) Brown . [facility] Eosinophils/100 WBC Auto (Bl d)on 04-26-2024 Eosinophils/100 WBC (Bld) 1.0 % 0.9-7.0 [facility] Erythrocyte distribution wid th Auto (RBC) [Ratio]on 04-26-2024 Erythrocyte distribution width (RBC) [Ratio] 15.8 % High 11.0-15.0 [facility] Estimated glomerular filtrat ion rate (GFR) non- Americanon 04-26-2024 GFR/1.73 sq M.predicted among non-blacks MDRD (S/P/Bld) [Vol rate/Area] 28 mL/min/{1.73_m2} Low >=60 [facility] Globulin Calc (S) [Mass/Vol] on 04-26-2024 Globulin (S) [Mass/Vol] 4.1 g/dL [facility] Hematocrit Auto (Bld) [Volum e fraction]on 04-26-2024 Hematocrit (Bld) [Volume fraction] 30.3 % Low 42.0-54.0 [facility] Hemoglobin [Mass/volume] in Bloodon 04-26-2024 Hemoglobin (Bld) [Mass/Vol] 9.7 g/dL Low 14.0-18.0 [facility] - Chemistry and C hemistry - challengeon 04-26-2024 Albumin [Mass/Vol] 1.9 g/dL Low 3.4-5.0 [facility] ALP [Catalytic activity/Vol] 122 U/L High 46-116 [facility] ALT [Catalytic activity/Vol] U/L Low 16-63 [facility] [facility] AST [Catalytic activity/Vol] 16 U/L 15-37 [facility] Bilirubin [Mass/Vol] 0.5 mg/dL 0.2-1.0 [facility] Calcium [Mass/Vol] 8.3 mg/dL Low 8.5-10.1 [facility] Chloride [Moles/Vol] 107 mmol/L 98-107 [facility] CO2 [Moles/Vol] 29.0 mmol/L 21.0-32.0 [facility] Creatinine [Mass/Vol] 2.32 mg/dL High 0.70-1.30 [facility] GFR/1.73 sq M.predicted MDRD (S/P/Bld) [Vol rate/Area] 34 mL/min/{1.73_m2} Low >=60 [facility] Glucose [Mass/Vol] 84 mg/dL 74-106 [facility] Magnesium [Mass/Vol] 2.0 mg/dL 1.8-2.4 [facility] Potassium [Moles/Vol] 3.7 mmol/L 3.5-5.1 [facility] Protein [Mass/Vol] 6.0 g/dL Low 6.4-8.2 [facility] Sodium [Moles/Vol] 142 mmol/L 136-145 [facility] Urea nitrogen [Mass/Vol] 55.0 mg/dL High 7.0-18.0 [facility] Urea nitrogen/Creatinine [Mass ratio] 23.7 mg/mg [facility] Laboratory - Hematology and Cell countson 04-26-2024 Immature granulocytes/100 WBC (Bld) 0.5 % 0.0-0.5 [facility] Leukocytes [#/volume] correc jacqueline for nucleated erythrocytes in Blood by Automated counon 04-26-2024 WBC corrected for nucl RBC Auto (Bld) [#/Vol] 13.9 10 3/uL High 4.0-11.0 [facility] Lymphocytes Auto (Bld) [#/Vo l]on 04-26-2024 Lymphocytes (Bld) [#/Vol] 1.3 10 3/uL 1.2-3.8 [facility] Lymphocytes/100 WBC Auto (Bl d)on 04-26-2024 Lymphocytes/100 WBC (Bld) 9.7 % Low 20.5-60.0 [facility] MCH Auto (RBC) [Entitic mass ]on 04-26-2024 MCH (RBC) [Entitic mass] 28.1 pg 25.9-34.0 [facility] MCHC Auto (RBC) [Mass/Vol]on 04-26-2024 MCHC (RBC) [Mass/Vol] 32.0 g/dL 29.9-35.2 [facility] MCV Auto (RBC) [Entitic vol] on 04-26-2024 MCV (RBC) [Entitic vol] 87.8 fL 80.0-94.0 [facility] Measurement of proportion of calculus composed of dried blood (mass/mass)on 04-26-2024 Blood.dried (Stone) [Mass fraction] TNP . [facility] Monocytes Auto (Bld) [#/Vol] on 04-26-2024 Monocytes (Bld) [#/Vol] 0.7 10 3/uL 0.3-0.8 [facility] Monocytes/100 WBC Auto (Bld) on 04-26-2024 Monocytes/100 WBC (Bld) 5.2 % 1.7-12.0 [facility] Neutrophils Auto (Bld) [#/Vo l]on 04-26-2024 Neutrophils (Bld) [#/Vol] 11.6 10 3/uL High 1.4-6.5 [facility] Neutrophils/100 WBC Auto (Bl d)on 04-26-2024 Neutrophils/100 WBC (Bld) 83.5 % High 43.0-75.0 [facility] Newberyite crystals detectio n in stone by infrared spectroscopyon 04-26-2024 Newberyite crystals Infrared spectroscopy Ql (Stone) TNP . [facility] No Panel Informationon 04-26 Stone 2,8 Dihydroxyadenine TNP . [facility] Stone Analysis Disclaimer Comment . [facility] Comment on above: Calculi report will follow via computer, mail or courierdelivery. This test was develo ped and its performance characteristicsdetermined by [facility]. It has not been cleared or approvedby the Food and Drug Administration.Performed at: [facility] [id number] [id number] Director: Diamond Phillips PhD, Phone: [phone] [place] Bilirubinate TNP . [facility] Stone Calcium Palmitate TNP . [facility] Stone Calcium Stearate TNP . Fi relands [facility] Stone Drug or Metabolite TNP . [facility] Stone Other Constituent TNP . [facility] Stone Xanthine TNP . [facility] Eosinophils # (Auto) 0.1 10 3/uL 0.0-0.7 [facility] Immature Granulocyte # (Auto) 0.07 10 3/uL High 0.00-0.03 [facility] Platelet mean volume Auto (B ld) [Entitic vol]on 04-26-2024 Platelet mean volume (Bld) [Entitic vol] 12.1 fL 9.5-13.5 [facility] Platelets Auto (Bld) [#/Vol] on 04-26-2024 Platelets (Bld) [#/Vol] 140 10 3/uL Low 150-450 [facility] RBC Auto (Bld) [#/Vol]on RBC (Bld) [#/Vol] 3.45 10 6/uL Low 4.70-6.10 [facility] Serum or plasma albumin/glob ulin mass ratioon 04-26-2024 Albumin/Globulin [Mass ratio] 0.5 {ratio} [facility] Serum or plasma anion gap de terminationon 04-26-2024 Anion gap [Moles/Vol] 9.7 mmol/L [facility] Size [Entitic volume] of Sto neon 04-26-2024 Size (Stone) [Entitic vol] 2x2 mm . [facility] Comment on above: Multiple pieces rece ived. Dimensions of the largest piecereported. Sodium urate crystals detect ion in stone by infrared spectroscopyon 04-26-2024 Sodium urate crystals Infrared spectroscopy Ql (Stone) TNP . [facility] Specimen source subject [Typ e]on 04-26-2024 Specimen source subject Nom Comment . [facility] Comment on above: Right Ureter Triamterene measurement in c alculuson 04-26-2024 Triamterene (Stone) [Mass fraction] TNP . [facility] Triple phosphate/Total in St oneon 04-26-2024 Triple phosphate (Stone) [Mass fraction] TNP . [facility] Uric acid dihydrate crystals detection in stone by infrared spectroscopyon 04-26-2024 Urate dihydrate crystals Infrared spectroscopy Ql (Stone) TNP . [facility] Basophils Auto (Bld) [#/Vol] on 04-25-2024 Basophils (Bld) [#/Vol] 0.0 10 3/uL 0.0-0.1 [facility] Basophils/100 WBC Auto (Bld) on 04-25-2024 Basophils/100 WBC (Bld) 0.1 % Low 0.2-2.0 [facility] Eosinophils/100 WBC Auto (Bl d)on 04-25-2024 Eosinophils/100 WBC (Bld) 1.3 % 0.9-7.0 [facility] Erythrocyte distribution wid th Auto (RBC) [Ratio]on 04-25-2024 Erythrocyte distribution width (RBC) [Ratio] 14.8 % 11.0-15.0 [facility] Estimated glomerular filtrat ion rate (GFR) non- Americanon 04-25-2024 GFR/1.73 sq M.predicted among non-blacks MDRD (S/P/Bld) [Vol rate/Area] 32 mL/min/{1.73_m2} Low >=60 [facility] Globulin Calc (S) [Mass/Vol] on 04-25-2024 Globulin (S) [Mass/Vol] 3.5 g/dL [facility] Hematocrit Auto (Bld) [Volum e fraction]on 04-25-2024 Hematocrit (Bld) [Volume fraction] 22.3 % Low 42.0-54.0 [facility] Comment on above: RESULTS CALLED TO Philip SMALL)@BY KEREN Monroy at 0514 Hemoglobin [Mass/volume] in Bloodon 04-25-2024 Hemoglobin (Bld) [Mass/Vol] 7.0 g/dL Low 14.0-18.0 [facility] Laboratory - Chemistry and C hemistry - challengeon 04-25-2024 Albumin [Mass/Vol] 1.7 g/dL Low 3.4-5.0 [facility] ALP [Catalytic activity/Vol] 95 U/L 46-116 [facility] ALT [Catalytic activity/Vol] U/L Low 16-63 [facility] AST [Catalytic activity/Vol] 14 U/L Low 15-37 [facility] Bilirubin [Mass/Vol] 0.4 mg/dL 0.2-1.0 [facility] Calcium [Mass/Vol] 8.0 mg/dL Low 8.5-10.1 [facility] Chloride [Moles/Vol] 111 mmol/L High 98-107 [facility] CO2 [Moles/Vol] 24.2 mmol/L 21.0-32.0 [facility] Creatinine [Mass/Vol] 2.09 mg/dL High 0.70-1.30 [facility] GFR/1.73 sq M.predicted MDRD (S/P/Bld) [Vol rate/Area] 39 mL/min/{1.73_m2} Low >=60 [facility] Glucose [Mass/Vol] 74 mg/dL 74-106 [facility] Potassium [Moles/Vol] 3.9 mmol/L 3.5-5.1 [facility] Protein [Mass/Vol] 5.2 g/dL Low 6.4-8.2 [facility] Sodium [Moles/Vol] 142 mmol/L 136-145 [facility] Urea nitrogen [Mass/Vol] 60.0 mg/dL High 7.0-18.0 [facility] Urea nitrogen/Creatinine [Mass ratio] 28.7 mg/mg [facility] Laboratory - Hematology and Cell countson 04-25-2024 Immature granulocytes/100 WBC (Bld) 0.4 % 0.0-0.5 [facility] Leukocytes [#/volume] correc jacqueline for nucleated erythrocytes in Blood by Automated counon 04-25-2024 WBC corrected for nucl RBC Auto (Bld) [#/Vol] 13.8 10 3/uL High 4.0-11.0 [facility] Lymphocytes Auto (Bld) [#/Vo l]on 04-25-2024 Lymphocytes (Bld) [#/Vol] 1.7 10 3/uL 1.2-3.8 [facility] Lymphocytes/100 WBC Auto (Bl d)on 04-25-2024 Lymphocytes/100 WBC (Bld) 12.3 % Low 20.5-60.0 [facility] MCH Auto (RBC) [Entitic mass ]on 04-25-2024 MCH (RBC) [Entitic mass] 28.0 pg 25.9-34.0 [facility] MCHC Auto (RBC) [Mass/Vol]on 04-25-2024 MCHC (RBC) [Mass/Vol] 31.4 g/dL 29.9-35.2 [facility] MCV Auto (RBC) [Entitic vol] on 04-25-2024 MCV (RBC) [Entitic vol] 89.2 fL 80.0-94.0 [facility] Monocytes Auto (Bld) [#/Vol] on 04-25-2024 Monocytes (Bld) [#/Vol] 0.8 10 3/uL 0.3-0.8 [facility] Monocytes/100 WBC Auto (Bld) on 04-25-2024 Monocytes/100 WBC (Bld) 6.0 % 1.7-12.0 [facility] Neutrophils Auto (Bld) [#/Vo l]on 04-25-2024 Neutrophils (Bld) [#/Vol] 11.0 10 3/uL High 1.4-6.5 [facility] Neutrophils/100 WBC Auto (Bl d)on 04-25-2024 Neutrophils/100 WBC (Bld) 79.9 % High 43.0-75.0 [facility] No Panel Informationon 04-25 Eosinophils # (Auto) 0.2 10 3/uL 0.0-0.7 [facility] Immature Granulocyte # (Auto) 0.06 10 3/uL High 0.00-0.03 [facility] Platelet mean volume Auto (B ld) [Entitic vol]on 04-25-2024 Platelet mean volume (Bld) [Entitic vol] 12.9 fL 9.5-13.5 [facility] Platelets Auto (Bld) [#/Vol] on 04-25-2024 Platelets (Bld) [#/Vol] 129 10 3/uL Low 150-450 [facility] RBC Auto (Bld) [#/Vol]on RBC (Bld) [#/Vol] 2.50 10 6/uL Low 4.70-6.10 [facility] Serum or plasma albumin/glob ulin mass ratioon 04-25-2024 Albumin/Globulin [Mass ratio] 0.5 {ratio} [facility] Serum or plasma anion gap de terminationon 04-25-2024 Anion gap [Moles/Vol] 10.7 [facility] Basophils/100 WBC Manual cnt (Bld)on 04-24-2024 Basophils/100 WBC (Bld) 0.0 % Low 0.2-2.0 [facility] Eosinophils/100 WBC Manual c nt (Bld)on 04-24-2024 Eosinophils/100 WBC (Bld) 0.0 % Low 0.9-7.0 [facility] Erythrocyte distribution wid th Auto (RBC) [Ratio]on 04-24-2024 Erythrocyte distribution width (RBC) [Ratio] 14.6 % 11.0-15.0 [facility] Estimated glomerular filtrat ion rate (GFR) non- Americanon 04-24-2024 GFR/1.73 sq M.predicted among non-blacks MDRD (S/P/Bld) [Vol rate/Area] 33 mL/min/{1.73_m2} Low >=60 [facility] Globulin Calc (S) [Mass/Vol] on 04-24-2024 Globulin (S) [Mass/Vol] 3.7 g/dL [facility] Hematocrit Auto (Bld) [Volum e fraction]on 04-24-2024 Hematocrit (Bld) [Volume fraction] 25.9 % Low 42.0-54.0 [facility] Hemoglobin [Mass/volume] in Bloodon 04-24-2024 Hemoglobin (Bld) [Mass/Vol] 8.2 g/dL Low 14.0-18.0 [facility] Laboratory - Chemistry and C hemistry - challengeon 04-24-2024 Lactate [Moles/Vol] 1.9 mmol/L 0.4-2.0 [facility] Albumin [Mass/Vol] 1.8 g/dL Low 3.4-5.0 [facility] ALP [Catalytic activity/Vol] 95 U/L 46-116 [facility] ALT [Catalytic activity/Vol] U/L Low 16-63 [facility] AST [Catalytic activity/Vol] 10 U/L Low 15-37 [facility] Bilirubin [Mass/Vol] 0.7 mg/dL 0.2-1.0 [facility] Calcium [Mass/Vol] 7.9 mg/dL Low 8.5-10.1 [facility] Chloride [Moles/Vol] 111 mmol/L High 98-107 [facility] CO2 [Moles/Vol] 23.5 mmol/L 21.0-32.0 [facility] Creatinine [Mass/Vol] 2.02 mg/dL High 0.70-1.30 [facility] GFR/1.73 sq M.predicted MDRD (S/P/Bld) [Vol rate/Area] 40 mL/min/{1.73_m2} Low >=60 [facility] Glucose [Mass/Vol] 97 mg/dL 74-106 [facility] Potassium [Moles/Vol] 3.8 mmol/L 3.5-5.1 [facility] Protein [Mass/Vol] 5.5 g/dL Low 6.4-8.2 [facility] Sodium [Moles/Vol] 142 mmol/L 136-145 [facility] Urea nitrogen [Mass/Vol] 59.0 mg/dL High 7.0-18.0 [facility] Urea nitrogen/Creatinine [Mass ratio] 29.2 mg/mg [facility] Laboratory - Hematology and Cell countson 04-24-2024 Band form neutrophils/100 WBC (Bld) 5.0 % 0-5 [facility] Lymphocytes/100 WBC (Bld) 1.0 % Low 20.5-60.0 [facility] Monocytes/100 WBC (Bld) 1.0 % Low 1.7-12.0 [facility] Leukocytes [#/volume] correc jacqueline for nucleated erythrocytes in Blood by Automated counon 04-24-2024 WBC corrected for nucl RBC Auto (Bld) [#/Vol] 37.6 10 3/uL High 4.0-11.0 [facility] Comment on above: RESULTS CALLED TO NITHYA BENTON RN MCH Auto (RBC) [Entitic mass ]on 04-24-2024 MCH (RBC) [Entitic mass] 29.0 pg 25.9-34.0 [facility] MCHC Auto (RBC) [Mass/Vol]on 04-24-2024 MCHC (RBC) [Mass/Vol] 31.7 g/dL 29.9-35.2 [facility] MCV Auto (RBC) [Entitic vol] on 04-24-2024 MCV (RBC) [Entitic vol] 91.5 fL 80.0-94.0 [facility] No Panel Informationon 04-24 Absolute Basophils (Manual) 0.00 10 3/uL 0.00-0.10 [facility] Band Neutrophils # (Manual) 1.9 10 3/uL High 0.0-0.3 [facility] Eosinophils # (Manual) 0.00 10 3/uL 0.00-0.70 [facility] Lymphocytes # (Manual) 0.37 10 3/uL Low 1.20-3.80 [facility] Monocytes # (Manual) 0.37 10 3/uL 0.30-0.80 [facility] Segmented Neutrophils # (Manual) 34.96 10 3/uL High 1.4-6.5 [facility] Platelet mean volume Auto (B ld) [Entitic vol]on 04-24-2024 Platelet mean volume (Bld) [Entitic vol] 12.8 fL 9.5-13.5 [facility] Platelets Auto (Bld) [#/Vol] on 04-24-2024 Platelets (Bld) [#/Vol] 195 10 3/uL 150-450 [facility] RBC Auto (Bld) [#/Vol]on RBC (Bld) [#/Vol] 2.83 10 6/uL Low 4.70-6.10 [facility] Segmented neutrophils/100 WB C Manual cnt (Bld)on 04-24-2024 Segmented neutrophils/100 WBC (Bld) 93.0 % [facility] Serum or plasma albumin/glob ulin mass ratioon 04-24-2024 Albumin/Globulin [Mass ratio] 0.5 {ratio} [facility] Serum or plasma anion gap de terminationon 04-24-2024 Anion gap [Moles/Vol] 11.3 [facility] Serum procalcitonin measurem enton 04-24-2024 Procalcitonin [Mass/Vol] 66.17 ng/mL High 0.00-0.50 [facility] Basophils Auto (Bld) [#/Vol] on 04-23-2024 Basophils (Bld) [#/Vol] 0.0 10 3/uL 0.0-0.1 [facility] Basophils/100 WBC Auto (Bld) on 04-23-2024 Basophils/100 WBC (Bld) 0.2 % 0.2-2.0 [facility] Eosinophils/100 WBC Auto (Bl d)on 04-23-2024 Eosinophils/100 WBC (Bld) 0.3 % Low 0.9-7.0 [facility] Erythrocyte distribution wid th Auto (RBC) [Ratio]on 04-23-2024 Erythrocyte distribution width (RBC) [Ratio] 14.5 % 11.0-15.0 [facility] Estimated glomerular filtrat ion rate (GFR) non- Americanon 04-23-2024 GFR/1.73 sq M.predicted among non-blacks MDRD (S/P/Bld) [Vol rate/Area] 49 mL/min/{1.73_m2} Low >=60 [facility] Fibrin D-dimer [Presence] in Platelet poor plasma by Latex agglutinationon 04-23-2024 Fibrin D-dimer LA Ql (PPP) 1.33 mg/L FEU High <=0.59 [facility] Comment on above: RESULTS CALLED TO DR . DIABIncreases in D-Dimer concentration observed withthromboembolic events can [...] on 04-23-2024 Globulin (S) [Mass/Vol] 4.6 g/dL [facility] Hematocrit Auto (Bld) [Volum e fraction]on 04-23-2024 Hematocrit (Bld) [Volume fraction] 36.3 % Low 42.0-54.0 [facility] Hemoglobin [Mass/volume] in Bloodon 04-23-2024 Hemoglobin (Bld) [Mass/Vol] 11.1 g/dL Low 14.0-18.0 [facility] INR in Platelet poor plasma by Coagulation assayon 04-23-2024 INR Coag (PPP) [Relative time] 1.09 {INR} [facility] Comment on above: DESIRED INR:2.0-3.0 CONDITIONS NOT LISTED BELOW2.5-3.5 FOR PROSTHETIC HEART VALVE REPLACEMENT2.5-3.5 RECURRENT THROMBOSIS Laboratory - Chemistry and C hemistry - challengeon 04-23-2024 HCO3 (Bld) [Moles/Vol] 19.4 mmol/L Low 22.0-26.0 [facility] Lactate [Moles/Vol] 1.5 mmol/L 0.4-2.0 [facility] Bilirubin Ql (U) Negative NEGATIVE [facility] Glucose (U) [Mass/Vol] Negative NEGATIVE [facility] Ketones Ql (U) Negative NEGATIVE [facility] pH (U) 7.5 [pH] 5.0-9.0 [facility] Specific gravity (U) [Rel density] 1.020 1.005-1.02 5 [facility] Urobilinogen Qn (U) 0.2 {Phillip'U}/dL 0.2-1.0 [facility] Albumin [Mass/Vol] 2.6 g/dL Low 3.4-5.0 [facility] ALP [Catalytic activity/Vol] 119 U/L High 46-116 [facility] ALT [Catalytic activity/Vol] 9 U/L Low 16-63 [facility] AST [Catalytic activity/Vol] 15 U/L 15-37 [facility] Bilirubin [Mass/Vol] 0.8 mg/dL 0.2-1.0 [facility] Calcium [Mass/Vol] 8.8 mg/dL 8.5-10.1 [facility] Chloride [Moles/Vol] 108 mmol/L High 98-107 [facility] CO2 [Moles/Vol] 23.3 mmol/L 21.0-32.0 [facility] Creatinine [Mass/Vol] 1.45 mg/dL High 0.70-1.30 [facility] GFR/1.73 sq M.predicted MDRD (S/P/Bld) [Vol rate/Area] 59 mL/min/{1.73_m2} Low >=60 [facility] Glucose [Mass/Vol] 131 mg/dL High 74-106 [facility] Natriuretic peptide B (Bld) [Mass/Vol] 1488.0 pg/mL High <=900.0 [facility] Comment on above: RESULTS CALLED TO DR Alejandro CRAMER Potassium [Moles/Vol] 3.8 mmol/L 3.5-5.1 [facility] Protein [Mass/Vol] 7.2 g/dL 6.4-8.2 [facility] Sodium [Moles/Vol] 145 mmol/L 136-145 [facility] Urea nitrogen [Mass/Vol] 47.0 mg/dL High 7.0-18.0 [facility] Urea nitrogen/Creatinine [Mass ratio] 32.4 mg/mg [facility] Laboratory - Hematology and Cell countson 04-23-2024 Immature granulocytes/100 WBC (Bld) 1.0 % High 0.0-0.5 [facility] Laboratory - Microbiology an d Antimicrobial susceptibilityon 04-23-2024 S. agalactiae Org specific cx Ql (Vag fld) Not detected NOT DETECTE [facility] SARS-CoV-2 (COVID-19) RNA KELLIE+probe Ql (Unsp spec) Negative NEGATIVE [facility] Comment on above: This test has [...] on 04-23-2024 Bacteria identified Cx Nom (U) [facility] Laboratory - Specimen inform ationon 04-23-2024 Appearance (U) CLOUDY Abnormal CLEAR [facility] Color (U) YELLOW YELLOW [facility] Laboratory - Urinalysison Leukocyte esterase Test strip Ql (U) MODERATE Abnormal NEGATIVE [facility] Mucus Ql (Urine sed) TRACE Abnormal NONE SEEN [facility] Nitrite Ql (U) Positive Abnormal NEGATIVE [facility] Protein Ql (U) 100 mg/dL Abnormal NEG/TRACE [facility] Leukocytes [#/volume] correc jacqueline for nucleated erythrocytes in Blood by Automated counon 04-23-2024 WBC corrected for nucl RBC Auto (Bld) [#/Vol] 15.8 10 3/uL High 4.0-11.0 [facility] Lymphocytes Auto (Bld) [#/Vo l]on 04-23-2024 Lymphocytes (Bld) [#/Vol] 2.4 10 3/uL 1.2-3.8 [facility] Lymphocytes/100 WBC Auto (Bl d)on 07-06-2024 Lymphocytes/100 WBC (Bld) 15.3 % Low 20.5-60.0 [facility] MCH Auto (RBC) [Entitic mass ]on 04-23-2024 MCH (RBC) [Entitic mass] 28.4 pg 25.9-34.0 [facility] MCHC Auto (RBC) [Mass/Vol]on 04-23-2024 MCHC (RBC) [Mass/Vol] 30.6 g/dL 29.9-35.2 [facility] MCV Auto (RBC) [Entitic vol] on 04-23-2024 MCV (RBC) [Entitic vol] 92.8 fL 80.0-94.0 [facility] Monocytes Auto (Bld) [#/Vol] on 04-23-2024 Monocytes (Bld) [#/Vol] 0.1 10 3/uL Low 0.3-0.8 [facility] Monocytes/100 WBC Auto (Bld) on 04-23-2024 Monocytes/100 WBC (Bld) 0.7 % Low 1.7-12.0 [facility] Neutrophils Auto (Bld) [#/Vo l]on 04-23-2024 Neutrophils (Bld) [#/Vol] 13.0 10 3/uL High 1.4-6.5 [facility] Neutrophils/100 WBC Auto (Bl d)on 04-23-2024 Neutrophils/100 WBC (Bld) 82.5 % High 43.0-75.0 [facility] No Panel Informationon 04-23 Raf Test Positive POSITIVE [facility] Arterial Blood Base Excess -6.3 mmol/L Low <2.0-2.0 [facility] Arterial Blood Oxygen Saturation >100.0 % [facility] Arterial Blood Partial Pressure CO2 35.7 mm[Hg] 35.0-45.0 [facility] Arterial Blood Partial Pressure O2 307.0 mm[Hg] High 80.0-100.0 [facility] Arterial Blood pH 7.344 Low 7.350-7.45 0 [facility] Blood Gas Liter Flow 15 [facility] Blood Gas Sample Site RR [facility] Oxygen Delivery Device NRBM [facility] A.calcoaceticus-china samantha cmplx PCR Not detected NOT DETECTE [facility] Bacteroides fragilis (PCR) Not detected NOT DETECTE [facility] Blood Culture Source Blood [facility] Tiffany albicans (PCR) Not detected NOT DETECTE [facility] Tiffany auris (PCR) Not detected NOT DETECTE [facility] Tiffany glabrata (PCR) Not detected NOT DETECTE [facility] Tiffany krusei (PCR) Not detected NOT DETECTE [facility] Tiffany parapsilosis (PCR) Not detected NOT DETECTE [facility] Tiffany tropicalis (PCR) Not detected NOT DETECTE [facility] Crypto neoformans/gattii (PCR)(LAB) Not detected NOT DETECTE [facility] CTX-M ESBL (PCR) Not detected NOT DETECTE [facility] Enterobacter cloacae complex (PCR) Detected Abnormal NOT DETECTE [facility] Comment on above: RESULTS CALLED TO CHARLIE THAO RN Enterobacterales (PCR) Detected Abnormal NOT DETECTE [facility] Comment on above: RESULTS CALLED TO CHARLIE THAO RN Enterococcus faecalis PCR Not detected NOT DETECTE [facility] Enterococcus faecium PCR Not detected NOT DETECTE [facility] Escherichia coli Result Not detected NOT DETECTE [facility] Haemophilus influenzae DNA Not detected NOT DETECTE [facility] IMP (blaIMP) Carbap Res Gene (PCR) Not detected NOT DETECTE [facility] Klebsiella aerogenes (PCR) Not detected NOT DETECTE [facility] Klebsiella oxytoca (PCR) Not detected NOT DETECTE [facility] Klebsiella pneumoniae group (PCR) Not detected NOT DETECTE [facility] KPC (blaKPC) Detection (PCR) Not detected NOT DETECTE [facility] Listeria monocytogenes (PCR) Not detected NOT DETECTE [facility] MCR-1 Resistance Gene Not detected NOT DETECTE [facility] mecA/C & MREJ Antimicrob Resist Gen NOT APPLICABLE NOT DETECTE [facility] mecA/C-Methicillin Resistance Gene NOT APPLICABLE NOT DETECTE [facility] NDM (blaNDM) Detection (PCR) Not detected NOT DETECTE [facility] Neisseria meningitidis (PCR) Not detected NOT DETECTE [facility] Proteus species (PCR) Not detected NOT DETECTE [facility] Pseudomonas aeruginosa (PCR) Not detected NOT DETECTE [facility] Salmonella spp. (PCR) Not detected NOT DETECTE [facility] Serratia marcescens (PCR) Not detected NOT DETECTE [facility] Staphylococcus aureus (PCR)(LAB) Not detected NOT DETECTE [facility] Staphylococcus epidermidis (PCR) Not detected NOT DETECTE [facility] Staphylococcus lugdunensis (TEM-PCR Not detected NOT DETECTE [facility] Staphylococcus species (PCR) Not detected NOT DETECTE [facility] Stenotroph. maltophilia (PCR) Not detected NOT DETECTE [facility] Streptococcus pneumoniae (PCR) Not detected NOT DETECTE [facility] Streptococcus pyogenes (PCR)(LAB) Not detected NOT DETECTE [facility] Streptococcus species (PCR) Not detected NOT DETECTE [facility] Syn OXA-48-like Carb Res Gene (PCR) Not detected NOT DETECTE [facility] Jessica/B-Vancomycin Resistance Genes NOT APPLICABLE NOT DETECTE [facility] VIM (blaVIM) Carbap Res Gene (PCR) Not detected NOT DETECTE [facility] Urine Bacteria MODERATE #/HPF Abnormal NONE SEEN [facility] Urine Culture Reflexed YES [facility] Urine Microscopic Review YES [facility] Urine Occult Blood SMALL Abnormal NEGATIVE [facility] Urine Other Casts NONE SEEN #/LPF NONE SEEN [facility] Urine Other Crystals None Seen #/HPF None Seen [facility] Urine RBC 10-20 #/HPF Abnormal 0-2 [facility] Urine Squamous Epithelial Cells FEW #/LPF Abnormal NONE/RARE [facility] Urine WBC 20-50 #/HPF Abnormal NONE SEEN [facility] Eosinophils # (Auto) 0.1 10 3/uL 0.0-0.7 [facility] Immature Granulocyte # (Auto) 0.16 10 3/uL High 0.00-0.03 [facility] Troponin I High Sensitivity 8.3 pg/mL 4.0-76.1 [facility] Comment on above: CUT-OFF POINTS HAVE [...] Mercedez Cramer on 04-23-2024 Blood Culture 2 [facility] Blood Culture 1 [facility] Platelet mean volume Auto (B ld) [Entitic vol]on 04-23-2024 Platelet mean volume (Bld) [Entitic vol] 12.5 fL 9.5-13.5 [facility] Platelets Auto (Bld) [#/Vol] on 04-23-2024 Platelets (Bld) [#/Vol] 318 10 3/uL 150-450 [facility] Prothrombin time (PT)on PT Coag (PPP) [Time] 11.5 s 9.0-11.6 [facility] RBC Auto (Bld) [#/Vol]on RBC (Bld) [#/Vol] 3.91 10 6/uL Low 4.70-6.10 [facility] Serum or plasma albumin/glob ulin mass ratioon 04-23-2024 Albumin/Globulin [Mass ratio] 0.6 {ratio} [facility] Serum or plasma anion gap de terminationon 04-23-2024 Anion gap [Moles/Vol] 17.5 mmol/L [facility] Coding Summary.on 04-13-2024 Coding Summary. JOAFAdjw72PYy8qWt+PG hlYWQ +JA8JMNAlU07efTUcsY0lZ7AW TElOSywgQVBQTElOSyIgbmFtZ D3ywICqGUZc IC8+JX7vBNJoRladyWLzb9D5r BM9U02zco4jPCbeuAF0HICqHi Yxcnrrl3wvqRw6BJriZoumPbH t DASswQ46CNW8mC90Fz94oDRwe XQyq2oopJc6LcQdGJAxHGZ2mH ybJQxbd6JxBPLhN30asONhq9R 6 IQVgxStjvXWtCjNzrLI1fI8zA Stfdnluh1ekafevKrh2hw28hY Lqr1J2cDJ3P4HuxhB6LNHxlWT g BgnwbCYDiT7gpdmlc6frhrnvO zXcPOTaIYg2SBn9GFHwmRgsKv GiQN43UZE7PJSxibDsD5BgJOU s iLeoUqN4k7F0Kf6GE5KPRmdtG 1VNTUFSWTwvdGQ+RI97ac72U3 KyOndjHeo7WYEnWHK3bAV2dJ0 n DJOeOFlqb4P2iLW0T3NjbwVwx q0yc9myBAInEMooV63weQEvy8 O8MRDuyNO5FGMlyGgjIcKeoK9 3 Oyc+VEPjvFuqx2AnJzdki9ijh 8oijEp0TvanWTTtkaHqfNfjSO T9t0OgOt0oYGMmoNX6uEP0cO0 i GyPyNqC1AOpxU859KwYfaKKqJ phuO90eU1XloPQ+MUEuVcd0XO SqcPrbGE1lG7DqFKKyxjqaiXG m uGobHL8tBZFzsdqdIGFakA3qA KDpF8q9WnVaKqN6VUjgO8MkEO UmrelrLf15oM0vWlArRbG7FJa u E5UzlrE2NTLzuIBzGVofSXA8O 32mh5T9OUTdZWGgSSC8pZF1fG 1hbGlnbjogbGVmdDsgdmVydGl j LYvgOZylO932OMOihZnrDgTrJ GluZyBEYXRlOiAgMDYvMjYvMj AyNDwvdGQ+KAWfBLF8cQwpCBE n wDMeOGafHn1kyHrmlXzdDX6wW FNfsacrESMfwE9xJRModUXqqY poXP1fLELfcauob110UjTxLOJ 0 JOZmzZOvF3UmcQ3aSqQeFCQcB YXgQ5NvuXHfSHeoL945WYowIf Z8WGXtecKvH7AyQETdmXrbMoD 0 z3Q4Op6Sc0IiudvaO6IjhWSkN kXzPbikNNc6W5LcYzqvlWI+PC 18VMXuBM01ARd7VQR0mLrsRGo i KFVsR8MdeW4aKwBfDTXhSVYnM yc+PHRhYmxlIHdpZHRoPScxMD VvHaIgiNouLP0mIl8vOZTcSZS v mEoowQVaFuTwp1uoIJAtEPhmG U1epPtyG2TwyZI6TWTkd5w2Hp 13S83oZ7OhgKN+YODluKD8gEQ 0 hS8bWoDpSoS4MWygI602FlZty GMdLmdzz1kqf2pknGm1UgH0KY NpgzMsfFbzVGY7m2QvRp40D56 s IHdpZHRoPSIxNSUiIHZhbGlnb y9iuV3tLn0+ZPOxvIU8hRZ5hT 2rAhOuVyK9SVsbR596DjXokGO v Vwgkx9dgd3jsjKc6CuUpBULyq lHmhTqtLMM2f5AzTk88R4KcnN ekj9WxUdk5ir62vQKnx7N5mUW 9 I6GiFNEjyehteWCicFpnUU9xK YBjnuyrQWGweN3aVXIeS6k1Ls UsKhU0LFxcH8SgmeF2WWJrdJT g MWZliYWMjJ3mmmiqp0vvyejaH aXkGPIrUCe1LTf2OJKrrNrlLk AzRDB0RmJ0AUH8eZKxaA1rgUy n ebcsdD0dEir+KVD7aDFrrKRCW K9oPxlynWU+ZHVwEGT6ePgoJR qeJUFgiA4oAGDcW6b3BpMkGqA 1 GWskM0JdiwI6GDWbcLQbAWBzr VPIoK8zkzsta7lmkbzeTiUkPQ IgVNd0BTj7YSZksMtsKaTuXBX 0 AeN8LJT5wIJlbB5kvDbrtnnof G9wOyc+PfxxfLpqLLF2EPh1J1 UoIsy1CRZkrXqgCR2neUPkKZr u Cr1ejDjmfSlqKI8wPAPsbrvcy 184ZhOfe8rnQCYxqOVhKQxaKJ Q7U10iu0C3NDMnXGPoWQT0zRC 4 pG4xyKesqmemiPUmzTlzedEaj FavJKmuXUzeN562RXHzrZjmFv LlKDi6R9QxEwa8NLUjjDalBI5 n gTKhPEevHn9haKqbnXojAV4kJ KEtmlopt171RaTsb1hwYTUpgN AeRZvmQJO5I82hz1X0ETIxOXG w OOR4zPM7vV4ouJoojdgycVFvl JlxqtJrpUhaYZcnBMrqC856TW SgmSbsBxWlrFe3T3MwKig8RCI z wYjaHF1nxIFjEZvzEv3fpRcmw GdlGC8kVBDrepvuc532IgUir8 exNRIuxPUiTHyiFKN8Q53cw7I 6 EZDvTFYdGPU7rPQ1wS5plWmrp jogbGVmdDsgdmVydGljYWwtYW gzZ489BSOrwEwlYyHecMeovjU g PTkvZIm2L3ReTnjvkBN+PC90Y VZsTY16kVQmhNWct5menGn7Ez AuINLvQQO6gEemJCffq2GsXFB t P70jnEJlp0V5UAIkhAcvkQDqP pBbvVJ0zB1qMCmzeqeit1yrgl ntBssbl1frui77tG26I59qOGz p PWChSTEcVLDkSMShfNqqtt4gp G9wIi8+WPFjkOZ8pSO1lP0pHJ VsYhH8SZisP669LyPnwQLfGji j k1gqy0yhdIq2ZjP7WIMrggYda IacMVQ3h1YqZg89O20yKRpiFM WaFSHzEXKbGTVflFityx7qqP7 w Ii8+CMXwuKG6bTK7jM0nSfMnY nI8JErxT229TjUctTJjTqzfB2 9aG6HbpQW+JKTlSao0CONhnBx s FK8egBUjJFupDa9nVZJ9AnFxR xUrOHzlN7GvYOEaktdbizuwfV U6HKEtQMCgfN68Lh5ftZpjROI w iHJXhU8swydgj9wffwfhMaUbJ OLqRIi1EPa5BPEwjMzpCmZxSB C0CuA9IAT0pJAfkE9mkGzyscg g oX5kE9SbHBCnzuigOq80dF6yQ xOoLaA1AKilQsr+H8LTNXBpWU NIQVJMRVMgTDwvdGQ+PHRkIHN 0 fGafKAjuWUUenQ5jCZXbQ4m3W xEnPkL5PSorR5KxDEZzudhxJb 94fL9hBaItDdF8OOewF4KybyK 6 FYPbgDTuPBycRJI2G33na1H7V QHpBLUsNPS9tUT7xX2fdOmcnk ogbGVmdDsgdmVydGljYWwtYWx p W406ZXUiaLaoYeQjHnQ6SgI7Q Sh5N4EqScs7XCEbrJqsYU2zmW KvXIqaUa2efJzgcYqvSR1kYLC p znouXGTqxY9cXNYhkLNxrLjiC U4uGPKmijlth681ZgHuDAG5TO UtzXZnM2IyrH9qTsNyHLZmLCF w F2UuaIGbTTlpX806DTuiQqG8I TLcppDrZ5JaUIYecUqaOiB2s6 O2Yr71CAIIKXXtwtgfsUA+PHR k HLT5eCzfZCogCSVcmC6bDULtW 0v8ElVxJzQ3LCjwK6YmVXXgcg agOv74lZ3lMsXbKsG0OBsfF6N v ejG4SVBbwRKdYHotECJ6C99pu 6F1BSJwYRZpCVS2oFG0hX6nuC lnbjogbGVmdDsgdmVydGljYWw t LNoeL049PMHsuGnzTj7qoXG9I 7LnYwz9YLXxvXytZP3lsJKkFT giCc5kjEogySadLP7rNCHhtkg w AZGpkF3yUTZrbEAktClaJW0zT PVkahfdc869MwEvHBG5YNWvyF UaJ7NvsH4aAoKlSXVeZWQfB4F l gKXtGRvyR757JKiwYiS5HDCqr rFjO7ImFIFlzTqnHhH4l2B5Ym 2KUXGuVTOxtSRoPqR1C8MfTgv v dHI+IR51JIPsEP02jPEteDFrz 0qmjRz3FfZqNDLxIAW2cEsoJU doh8YoSHIiW73dgFVut3K4NLY v fMevpERhTnGawXE8iP9oRUfay njnd3tnyklrZyynd3uwve99zC 46Z91xQRkbOBGjFXUjPZEpEYA h fQpvaw3mgS9qQy7+BJPlqPU0p YO4wG7fTjCoLzS7QAixT449Ed IucBJpOdtrn6uoi1nayKr1BdV w RUUnbjLlxBuzOZM0w1KxBe57R 29sIHdpZHRoPSIyMCUiIHZhbG lusa4emO5qDp8+PG6mn9cxbc9 1 xY69kJE+XUYnQRG0vZpaUDwkC DTvxW4eQFrlDzY0HJRaVcAxfZ 15sUDuYLojNy9suGxkyGfzBH7 w SIQqkgjrd600WmIql2rfTRUdf UUkHGvfLUW2A05kq4Q2JNYaQK UhHMQ9oKV1sH0snRhiotmipBY m yVwuaqLypPqlSHkoANxdF140V ZQrfAgcGlQyhXFwI6mnhhPTIL 1lOjwvdGQ+ZHWzQEP5tPynRZw w SKLsdR0sSHLeM9e9IaZfNrJ3N KttB2TwpbY4VNCzrGQhSBJoyD SCvO5fxtkon8nrzcvtPpOpFVM w BXy8GGo2POZbdJbpWcNjQHL7N wE1VZX2uHPzpD9wdOszhkbltQ 9wOyc+RklOOjwvdGQ+PHRkIHN 0 kBdeTJtaLQXazY1lLTOmQ1t0J eNwLaN1IOhsT4KrnwB7FVKqiE JdCRHaqOCDaY6eeeivj9imjia g UtJoWZAmJLq7EPb6VWNduHifR pQbUEU7VjM8MJU3nVDpzZ7bdU rzxuqaxE3dUhf+TVJOOjwvdGQ + LAIaIYS8tImmYZzfOOFqhG3rP WPxW7u3QaVtKbR7PQeiY6Bkux B3ZKKdaSLoOEWbtCBHwZ4omlk j e8ckylfqFxPxZCZpRWu4APa6V QEhdAyaSjLdMWN6VrI0EKY7aG KiaX4gzIyjcbeppZ8qYrf+UGF 5 ETN7JE37DA70Y4MtCjvevCQbn +PHRhYmxlIHdpZHRoPScxMD HtGdIlqQvqMO4tGg5vTJQjWGE v bGxhcHNlOiBjb (more content not included)... Normal [facility] Patient Letter FTon 2023 Patient [place] [facility] (Inserted Image. Nette ble to display) April 11, 20[address]A [address] [place] [address] : 1960 Dear Alisia Correa, We have been trying to reach you with no success. It is important that you return our call regarding your recent lab result upon receiving this letter. Also, at the time of your call, please provide us with your current information. Thank you for your prompt attention to this matter. Sincerely, [facility] [address] [place] [address] [facility] C Urineon 04-07-2024 Bacteria identified Cx Nom (U) Microbiology PROCEDURE: Urine Culture [R1] SOURCE: U Random BODY SITE: COLLECTED DATE/TIME: 04/05/2024 15:30 EDT RECEIVED DATE/TIME: 04/05/2024 18:24 EDT START DATE/TIME: 04/05/2024 18:24 EDT FREE TEXT SOURCE: TITI Duncan APRN, TITI Duncan APRN, Pippa Brand Pippa X FINAL REPORTS Final Report [] [...] Locations R1: This test was performed at: [facility], [address] [place] [address], [address] , , [facility] Comment on above: Performed By: #### 2 [id number] #### [facility] [address] [place] [address] RAD - MISCon 03-25-2024 RAD - MISC [id number]#1.00TIFF [facility] RAD - Ultrasound Reporton RAD - Ultrasound Report [id number]#1.00TIFF [facility] Patient Educationon 03-15-20 24 Patient Education [...] Follow these instructions at home: ? Take ftko-ngh-flyncjq and prescription medicines as told by your [...] get worse. (more content not included)... Normal [facility] Urology Office/Clinic Noteon 03-15-2024 Urology Office/Clinic [...] of cefdinir. Discussed with the patient starting mzfj-olz-plmyhot UTI prevention supplements including d-mannose, Cranberry and [...] Kidney Stones Antibiotic Medicine, Adult Kidney Stones, Hydr-qq-Yipx Benign Prostatic Hyperplasia Problem List/Past Medical History [...] hypofunction Urinary reten (more content not included)... [facility] Comment on above: Result Comment: Elec tronically Signed By: TITI Duncan APRN, Pippa Brand\.br\Date and Time Signed: 03/15/24 13:28 EDT Provider Letteron 03-01-2024 Provider Letter (Inserted Image. Nette ble to display) March 01, 2024 ALISIA CORREA [address] [place] [address] : 1960 Dear Alisia Correa, We have been trying to reach you with no success. It is important that you return our call regarding your lab results upon receiving this letter. Also, at the time of your call, please provide us with your current information. Thank you for your prompt attention to this matter. Sincerely, [facility] [address] [place] [address] [facility] C Urineon 02-25-2024 Bacteria identified Cx [...] SABI=mcg/m;(mg/L), S*=Predicted susceptible interp, R*=Predicted resistant interp [facility] Antibiotic SABI Dilutn SABI Interp SABI [...] Locations R1: This test was performed at: [facility], [address] [place] [address], [phone] , , [facility] Comment on above: Performed By: #### [id number] #### [facility] [address] [place] [address] Glucose Glucometer (BldC) [M ass/Vol]Ordered By: Bernice Shrestha on 02-11-2024 Glucose [Mass/Vol] 70 mg/dL [facility] Comment on above: Random Glucose Refer ence Range is dependent on time and content of last meal. Glucose of more than 200 mg/dL in a nonstressed, ambulatory subject supports the diagnosis of Diabetes Mellitus. Pre-Certification Formon Pre-Certification Form [id number]#1.00TIFF [facility] Ambulatory Visit Summaryon 0 01-11-2024 Ambulatory Visit Summary SUNNY ALISIA Cox :1960 Visit Date:01/11/2024 Ambulatory Visit Instructions Your [...] 11:00 AM EDT Where: [facility] Normal [facility] Basophils Auto (Bld) [#/Vol] on 01-06-2024 Basophils (Bld) [#/Vol] 0.0 10 3/uL 0.0-0.1 [facility] Basophils/100 WBC Auto (Bld) on 01-06-2024 Basophils/100 WBC (Bld) 0.6 % 0.2-2.0 [facility] Eosinophils/100 WBC Auto (Bl d)on 01-06-2024 Eosinophils/100 WBC (Bld) 3.2 % 0.9-7.0 [facility] Erythrocyte distribution wid th Auto (RBC) [Ratio]on 01-06-2024 Erythrocyte distribution width (RBC) [Ratio] 14.6 % 11.0-15.0 [facility] Estimated glomerular filtrat ion rate (GFR) non- Americanon 01-06-2024 GFR/1.73 sq M.predicted among non-blacks MDRD (S/P/Bld) [Vol rate/Area] mL/min/{1.73_m2} >=60 [facility] Hematocrit Auto (Bld) [Volum e fraction]on 01-06-2024 Hematocrit (Bld) [Volume fraction] 40.9 % 42.0-54.0 [facility] Hemoglobin [Mass/volume] in Bloodon 01-06-2024 Hemoglobin (Bld) [Mass/Vol] 12.6 g/dL 14.0-18.0 [facility] Laboratory - Chemistry and C hemistry - challengeon 01-06-2024 Calcium [Mass/Vol] 8.5 mg/dL 8.5-10.1 [facility] Chloride [Moles/Vol] 106 mmol/L 98-107 [facility] CO2 [Moles/Vol] 24.7 mmol/L 21.0-32.0 [facility] Creatinine [Mass/Vol] 1.14 mg/dL 0.70-1.30 [facility] GFR/1.73 sq M.predicted MDRD (S/P/Bld) [Vol rate/Area] mL/min/{1.73_m2} >=60 [facility] Glucose [Mass/Vol] 70 mg/dL 74-106 [facility] Lactate [Moles/Vol] 1.4 mmol/L 0.4-2.0 [facility] Potassium [Moles/Vol] 3.6 mmol/L 3.5-5.1 [facility] Sodium [Moles/Vol] 140 mmol/L 136-145 [facility] Urea nitrogen [Mass/Vol] 25.0 mg/dL 7.0-18.0 [facility] Urea nitrogen/Creatinine [Mass ratio] 21.9 mg/mg [facility] - Hematology and Cell countson 01-06-2024 Immature granulocytes/100 WBC (Bld) 0.4 % 0.0-0.5 [facility] - Microbiology an d Antimicrobial susceptibilityOrdered By: Ellen Crabtree on 01-06-2024 Bacteria identified Cx Nom (U) [facility] Leukocytes [#/volume] correc jacqueline for nucleated erythrocytes in Blood by Automated counon 01-06-2024 WBC corrected for nucl RBC Auto (Bld) [#/Vol] 5.3 10 3/uL 4.0-11.0 [facility] Lymphocytes Auto (Bld) [#/Vo l]on 01-06-2024 Lymphocytes (Bld) [#/Vol] 2.2 10 3/uL 1.2-3.8 [facility] Lymphocytes/100 WBC Auto (Bl d)on 01-06-2024 Lymphocytes/100 WBC (Bld) 41.9 % 20.5-60.0 [facility] MCH Auto (RBC) [Entitic mass ]on 01-06-2024 MCH (RBC) [Entitic mass] 28.5 pg 25.9-34.0 [facility] MCHC Auto (RBC) [Mass/Vol]on 01-06-2024 MCHC (RBC) [Mass/Vol] 30.8 g/dL 29.9-35.2 [facility] MCV Auto (RBC) [Entitic vol] on 01-06-2024 MCV (RBC) [Entitic vol] 92.5 fL 80.0-94.0 [facility] Monocytes Auto (Bld) [#/Vol] on 01-06-2024 Monocytes (Bld) [#/Vol] 0.6 10 3/uL 0.3-0.8 [facility] Monocytes/100 WBC Auto (Bld) on 01-06-2024 Monocytes/100 WBC (Bld) 12.0 % 1.7-12.0 [facility] Neutrophils Auto (Bld) [#/Vo l]on 01-06-2024 Neutrophils (Bld) [#/Vol] 2.2 10 3/uL 1.4-6.5 [facility] Neutrophils/100 WBC Auto (Bl d)on 01-06-2024 Neutrophils/100 WBC (Bld) 41.9 % 43.0-75.0 [facility] No Panel Informationon 01-05 Eosinophils # (Auto) 0.2 10 3/uL 0.0-0.7 [facility] Immature Granulocyte # (Auto) 0.02 10 3/uL 0.00-0.03 [facility] Platelet mean volume Auto (B ld) [Entitic vol]on 01-06-2024 Platelet mean volume (Bld) [Entitic vol] 13.0 fL 9.5-13.5 [facility] Platelets Auto (Bld) [#/Vol] on 01-06-2024 Platelets (Bld) [#/Vol] 153 10 3/uL 150-450 [facility] RBC Auto (Bld) [#/Vol]on RBC (Bld) [#/Vol] 4.42 10 6/uL 4.70-6.10 [facility] Serum or plasma anion gap de terminationon 01-06-2024 Anion gap [Moles/Vol] 12.9 mmol/L [facility] Pre-Certification Formon Pre-Certification Form [id number]#1.00TIFF Normal [facility] Ambulatory Visit Summaryon 0 11-17-2023 Ambulatory Visit Summary SUNNYALISIA :1960 Visit Date:11/17/2023 Ambulatory Visit Instructions Your [...] 11:30 AM EST Where: [facility] Pre-Certification Formon Pre-Certification Form [id number]#1.00TIFF [facility] A1C HEMOGLOBINon 11-10-2023 HbA1c (Bld) [Mass fraction] 5.7 % [place] Other HbA1c (Bld) [Mass fraction]o n 11-10-2023 A1C HEMOGLOBIN [facility] Other C Urineon 10-23-2023 Bacteria identified Cx [...] Locations R1: This test was performed at: [facility], [address] [place] [address], [id number] , [place], Normal [facility] Comment on above: Performed By: #### 2 [id number] #### [facility] [address] [place] [address] Ambulatory Visit Summaryon 0 10-22-2023 Ambulatory Visit Summary SUNNYALISIA Kenny :1960 Visit Date:10/21/2023 Ambulatory Visit Instructions Your [...] 11:00 AM EST Where: [facility] Ambulatory Visit Summaryon 11-15-2022 Ambulatory Visit [...] 11:00 AM EST Where: [facility] Lab Reportson 08-28-2023 Lab Reports [id number]#1.00TIFF [facility] Formson 08-27-2023 Forms [id number]#1.00TIFF [facility] RAD - CT Reporton 08-24-2023 RAD - CT Report [id number]#1.00TIFF [facility] RAD - MISCon 08-17-2023 RAD - MISC [id number]#1.00TIFF [facility] Physician Orderon 08-03-2023 Physician Order [id number]#1.00TIFF [facility] Physician Orderon 07-27-2023 Physician Order [id number]#1.00TIFF [facility] C Urineon 07-21-2023 Bacteria identified Cx [...] Locations R1: This test was performed at: [facility], [address] [place] [address], [address] , [place], [facility] Comment on above: Performed By: #### 2 [id number] #### [facility] [address] [place] [address] Provider Letteron 07-13-2023 Provider Letter (Inserted Image. Nette ble to display) July 13, 2023 ALISIA CORREA [address] [place] [address] : 1960 Dear Alejandro Tillmanparas, We have been trying to reach you with no success. It is important that you return our call regarding your recent injections upon receiving this letter. Also, at the time of your call, please provide us with your current information. Please call our office at [phone]. Thank you for your prompt attention to this matter. Sincerely, [facility] [address] [place] [address]. [place] [address] [facility] Lab Reportson 07-08-2023 Lab Reports [id number]#1.00CD:12 7 [facility] Gent Levelon 07-01-2023 GENTAMICIN 8.8 microgram/mL Normal 0.5-10.0 [facility] Comment on above: Performed By: #### 2 [id number] ####[facility] [address] [place] [address] Lab Reportson 07-01-2023 Lab Reports [id number]#1.00CD:12 7 Normal [facility] Physician Orderon 07-01-2023 Physician Order [id number]#1.00CD:12 7 [facility] Physician Order [id number]#1.00CD:12 7 [facility] Physician Orderon 06-29-2023 Physician Order [id number]#1.00CD:12 7 [facility] C Urineon 06-21-2023 Bacteria identified Cx [...] Locations R1: This test was performed at: [facility], [address] [place] [address], [address]- , [place], Normal [facility] Comment on above: Performed By: #### [id number] #### [facility] [address] [place] [id number] Ambulatory Visit Summaryon 0 06-19-2023 Ambulatory Visit [...] 11:00 AM EDT Where: [facility] Lab Reportson 06-08-2023 Lab Reports [id number]#1.00CD:12 7 [facility] Lab Reports [id number]#1.00CD:12 7 [facility] Lab Reports [id number]#1.00CD:12 7 [facility] Formson 05-29-2023 Forms [id number]#1.00CD:12 7 [facility] C Urineon 05-28-2023 Bacteria identified Cx [...] Locations R1: This test was performed at: [facility], [address] [place] [address], [id number]- , , [facility] Comment on above: Performed By: #### [id number] #### [facility] [address] [place] [address] CALCULI, URINARYon 3 2,8 Dihydroxyadenine Normal [facility] Comment on above: Performed By: #### C VDTBH #### [facility] [address] [address] [address] Bruce Nicholas Ammonium Acid Urate Normal [facility] Comment on above: Performed By: #### C VDTBH #### [facility] [address] [address] [address] Bruce Nicholas Bilirubin Ql (U) [facility] Comment on above: Performed By: #### C VDTBH #### [facility] [address] [address] [address] Bruce Nicholas Ca Oxalate Dihydrate 20 % [facility] Comment on above: Performed By: #### C VDTBH #### [facility] [address] [place] [address] Dr. Bruce Nicholas CaHPO4 (Brushite) [facility] Comment on above: Performed By: #### C VDTBH #### [facility] [address] [address] [address] Bruce Nicholas Calcium Bilirubinate [facility] Comment on above: Performed By: #### C VDTBH #### [facility] [address] [place] [address] Dr. Bruce Nicholas Calcium Carbonate [facility] Comment on above: Performed By: #### C VDTBH #### [facility] [address] [address] [address] Burce Nicholas Calcium Oxalate Monohydrate 80 % [facility] Comment on above: Performed By: #### C VDTBH #### [facility] [address] [address] [address] Bruce Nicholas Calcium Palmitate [place] [facility] Comment on above: Performed By: #### C VDTBH #### [facility] [address] [place] [address] Dr. Bruce Nicholas Calcium Phosphate Normal [facility] Comment on above: Performed By: #### C VDTBH #### [facility] [address] [address] [address] Bruce Nicholas Calcium Stearate Normal [facility] Comment on above: Performed By: #### C VDTBH #### [facility] [address] [address] [address] Bruce Nicholas Carbonate Apatite Normal [facility] Comment on above: Performed By: #### C VDTBH #### [facility] [address] [place] [address] Dr. Bruce Nicholas Cellular Material Normal [facility] Comment on above: Performed By: #### C VDTBH #### [facility] [address] [address] [address] Bruce Nicholas Cholesterol [facility] Comment on above: Performed By: #### C VDTBH #### [facility] [address] [place] [address] Dr. Bruce Nicholas Color (U) Brown Normal [facility] Comment on above: Performed By: #### C VDTBH #### [facility] [address] [place] [address] Dr. Bruce Nicholas Comment [facility] Comment on above: Performed By: #### C VDTBH #### [facility] [address] [place] [address] Dr. Bruce Nicholas Comment Comment Normal [facility] Comment on above: Result Comment: Calc ulus received wet. Wet calculi must be dried before analysis, which delays reporting of results. Leaving calculi wet (such as water, saline, blood, urine) may lead to changes in composition. Performed By: #### C VDTBH #### [facility] [address] [place] [address] Dr. Bruce Nicholas Comment: Comment Normal [facility] Comment on above: Result Comment: Eli poe questions regarding Calculi Analysis contact [facility] at: [phone]. Performed By: #### C VDTBH #### [facility] [address] [place] [address] Dr. Bruce Nicholas Composition Comment Normal [facility] Comment on above: Result Comment: Perc entage (Represents the % composition) Performed By: #### C VDTBH #### [facility] [address] [address] [address] Bruce Nicholas Cystine [facility] Comment on above: Performed By: #### C VDTBH #### [facility] [address] [address] [address] Bruce Nicholas Disclaimer: Comment Normal [facility] Comment on above: Result Comment: This test was developed and its performance characteristics determined by [employer]. It has not been cleared or approved by the Food and Drug Administration. Performed By: #### C VDTBH #### [facility] [address] [address] [address] Bruce Nicholas Dried Blood [facility] Comment on above: Performed By: #### C VDTBH #### [facility] [address] [place] [address] Dr. Bruce Nicholas Drug or Metabolite Normal [facility] Comment on above: Performed By: #### C VDTBH #### [facility] [address] [place] [address] Dr. Bruce Nicholas Hydroxyapatite [facility] Comment on above: Performed By: #### C VDTBH #### [facility] [address] [place] [address] Dr. Bruce Nicholas Mg NH4 PO4 (Struvite) [facility] Comment on above: Performed By: #### C VDTBH #### [facility] [address] [place] [address] Dr. Bruce Nicholas MgHPO4 (Newberyite) Normal [facility] Comment on above: Performed By: #### C VDTBH #### [facility] [address] [address] [address] Bruce Nicholas Other component(s) Normal [facility] Comment on above: Performed By: #### C VDTBH #### [facility] [address] [place] [address] Dr. Bruce Nicholas PDF . Normal [facility] Comment on above: Performed By: #### C VDTBH #### [facility] [address] [address] [address] Bruce Nicholas Photo Comment Normal [facility] Comment on above: Result Comment: Phot ograph will follow under a separate cover Performed By: #### C VDTBH #### [facility] [address] [address] [address] Bruce Nicholas Please note: Comment Normal [facility] Comment on above: Result Comment: Calc jayant report will follow via computer, mail or book critic delivery. Performed By: #### C VDTBH #### [facility] [address] [address] [address] Bruce Nicholas Size 6x4 [facility] Comment on above: Result Comment: Mult iple pieces received. Dimensions of the largest piece reported. Performed By: #### C VDTBH #### [facility] [address] [place] [address] Dr. Bruce Nicholas Sodium Acid Urate Normal [facility] Comment on above: Performed By: #### C VDTBH #### [facility] [address] [address] [address] Bruce Nicholas Source Comment [facility] Comment on above: Result Comment: Urin francine Bladder Performed By: #### C VDTBH #### [facility] [address] [address] [address] Bruce Nicholas Triamterene [facility] Comment on above: Performed By: #### C VDTBH #### [facility] [address] [address] [address] Bruce Nicholas Uric Acid Normal [facility] Comment on above: Performed By: #### C VDTBH #### [facility] [address] [address] [address] Bruce Nicholas Uric Acid Dihydrate Normal [facility] Comment on above: Performed By: #### C VDTBH #### [facility] [address] [address] [address] Bruce Nicholas Weight 615 mg Normal [facility] Comment on above: Performed By: #### C VDTBH #### [facility] [address] [place] [address] Dr. Bruce Nicholas Xanthine Normal [facility] Comment on above: Performed By: #### C VDTBH #### [facility] [address] [place] [address] Dr. Bruce Nicholas POINT OF CARE GLUCOSEon 04-0 Glucose [Mass/Vol] 70 mg/dL Critically low 74-106 [facility] Comment on above: Performed By: #### C BC #### [facility] [address] [place] [address] Dr. Bruce Nicholas CBC AUTO DIFFon 01-20-2023 BASO # 0.0 103/ul Normal 0.0-0.1 [facility] Comment on above: Performed By: #### C VDTBH #### [facility] [address] [place] [address] Dr. Bruce Nicholas Basophils/100 WBC (Bld) 0.2 % Normal 0.2-2.0 [facility] Comment on above: Performed By: #### C VDTBH #### [facility] [address] [place] [address] Dr. Bruce Nicholas EO # 0.1 103/ul Normal 0.0-0.7 [facility] Comment on above: Performed By: #### C VDTBH #### [facility] [address] [place] [address] Dr. Bruce Nicholas Eosinophils/100 WBC (Bld) 0.7 % Critically low 0.9-7.0 [facility] Comment on above: Performed By: #### C VDTBH #### [facility] [address] [place] [address] Dr. Bruce Nicholas Erythrocyte distribution width (RBC) [Ratio] 15.2 % Critically high 11.0-15.0 [facility] Comment on above: Performed By: #### C VDTBH #### [facility] [address] [place] [address] Dr. Bruce Nicholas Hematocrit (Bld) [Volume fraction] 43.0 % Normal 42.0-54.0 [facility] Comment on above: Performed By: #### C VDTBH #### [facility] [address] [address] [address] Bruce Nicholas Hemoglobin (Bld) [Mass/Vol] 13.7 g/dL Critically low 14.0-18.0 [facility] Comment on above: Performed By: #### C VDTBH #### [facility] [address] [address] [address] Bruce Nicholas IG # 0.04 10e3/ul Critically high 0.00-0.03 [facility] Comment on above: Performed By: #### C VDTBH #### [facility] [address] [address] [address] Bruce Nicholas IG % 0.5 % Normal 0.0-0.5 [facility] Comment on above: Performed By: #### C VDTBH #### [facility] [address] [place] [address] Dr. Bruce Nicholas LYMPH # 1.6 103/ul Normal 1.2-3.8 [facility] Comment on above: Performed By: #### C VDTBH #### [facility] [address] [address] [address] Bruce Nicholas Lymphocytes/100 WBC (Bld) 18.4 % Critically low 20.5-60.0 [facility] Comment on above: Performed By: #### C VDTBH #### [facility] [address] [place] [address] Dr. Bruce Nichoals MANUAL DIFF REQ NO Normal [facility] Comment on above: Performed By: #### C VDTBH #### [facility] [address] [address] [address] Bruce Nicholas MCH (RBC) [Entitic mass] 28.8 pg Normal 25.9-34.0 [facility] Comment on above: Performed By: #### C VDTBH #### [facility] [address] [place] [address] Dr. Bruce Nicholas MCHC (RBC) [Mass/Vol] 31.9 g/dL Normal 29.9-35.2 [facility] Comment on above: Performed By: #### C VDTBH #### [facility] [address] [place] [address] Dr. Bruce Nicholas MCV (RBC) [Entitic vol] 90.3 fL Normal 80.0-94.0 [facility] Comment on above: Performed By: #### C VDTBH #### [facility] [address] [place] [address] Dr. Bruce Nicholas MONO # 0.6 103/ul Normal 0.3-0.8 [facility] Comment on above: Performed By: #### C VDTBH #### [facility] [address] [place] [address] Dr. Bruce Nicholas Monocytes/100 WBC (Bld) 6.5 % Normal 1.7-12.0 [facility] Comment on above: Performed By: #### C VDTBH #### [facility] [address] [place] [address] Dr. Bruce Nicholas NEUT # 6.4 103/ul Normal 1.4-6.5 [facility] Comment on above: Performed By: #### C VDTBH #### [facility] [address] [place] [address] Dr. Bruce Nicholas Neutrophils/100 WBC (Bld) 73.7 % Normal 43.0-75.0 [facility] Comment on above: Performed By: #### C VDTBH #### [facility] [address] [place] [address] Dr. Bruce Nicholas Platelet mean volume (Bld) [Entitic vol] 11.6 fL Normal 9.5-13.5 [facility] Comment on above: Performed By: #### C VDTBH #### [facility] [address] [place] [address] Dr. Bruce Nicholas PLT 229 103/ul Normal 150-450 [facility] Comment on above: Performed By: #### C VDTBH #### [facility] [address] [place] [address] Dr. Bruce Nicholas RBC 4.76 106/ul Normal 4.70-6.10 [facility] Comment on above: Performed By: #### C VDTBH #### [facility] [address] [place] [address] Dr. Bruce Nicholas WBC 8.7 103/ul Normal 4.0-11.0 [facility] Comment on above: Performed By: #### C VDTBH #### [facility] [address] [place] [address] Dr. Bruce Nicholas PROF CHEM 8 (BAS METB)on Anion gap [Moles/Vol] 11.1 mmol/L Normal [facility] Comment on above: Performed By: #### C BC #### [facility] [address] [place] [address] Dr. Bruce Nicholas Calcium [Mass/Vol] 9.5 mg/dL Normal 8.5-10.1 [facility] Comment on above: Performed By: #### C BC #### [facility] [address] [place] [address] Dr. Bruce Nicholas Chloride [Moles/Vol] 105 mmol/L Normal 98-107 [facility] Comment on above: Performed By: #### C BC #### [facility] [address] [place] [address] Dr. Bruce Nicholas CO2 [Moles/Vol] 27.5 mmol/L Normal 21.0-32.0 [facility] Comment on above: Performed By: #### C BC #### [facility] [address] [place] [address] Dr. Bruce Nicholas Creatinine [Mass/Vol] 0.73 mg/dL Normal 0.70-1.30 [facility] Comment on above: Performed By: #### C BC #### [facility] [address] [place] [address] Dr. Bruce Nicholas EGFR-AF MEXICAN >60 Normal >=60 [facility] Comment on above: Performed By: #### C BC #### [facility] [address] [place] [address] Dr. Bruce Nicholas EGFR-NON AF MEXICAN >60 Normal >=60 [facility] Comment on above: Performed By: #### C BC #### [facility] [address] [address] [address] Bruce Nicholas Glucose [Mass/Vol] 97 mg/dL Normal 74-106 [facility] Comment on above: Performed By: #### C BC #### [facility] [address] [address] [address] Bruce Nicholas Potassium [Moles/Vol] 4.1 mmol/L Normal 3.5-5.1 [facility] Comment on above: Performed By: #### C BC #### [facility] [address] [address] [address] Bruce Nicholas Sodium [Moles/Vol] 140 mmol/L Normal 136-145 [facility] Comment on above: Performed By: #### C BC #### [facility] [address] [address] [address] Bruce Nicholas Urea nitrogen [Mass/Vol] 22.0 mg/dL Critically high 7.0-18.0 [facility] Comment on above: Performed By: #### C BC #### [facility] [address] [address] [address] Bruce Nicholas Urea nitrogen/Creatinine [Mass ratio] 30.1 mg/mg Normal [facility] Comment on above: Performed By: #### C BC #### [facility] [address] [address] [address] Bruce Green 12-24-2022 NEGIN Office Visit (URFMOB ) ----- ALISIA CORREA ([id number]) 1960 [address] Date Time Provider Department 12/24/22 11:30 AM SAY REYES During your visit today, we recorded the [...] Ulcerative lesio (more content not included)... Normal [facility] CULTURE URINEon 12-21-2022 CULTURE URINE Isolate 1 Pseudomonas aeruginosa >100,000 cfu/mL of ORGANISM 1 Pseudomonas aeruginosa ANTIBIOTIC M.I.C RX STATUS Piperacillin/Tazobactam <=4 S F Ceftazidime <=1 S F Imipenem 1 S F Amikacin <=2 S F Gentamicin <=1 S F Tobramycin <=1 S F Ciprofloxacin <=0.25 S F Levofloxacin 0.25 S F Normal [facility] Comment on above: Performed By: #### U RCX #### [facility] [address] [place] [address] Dr. Bruce Nicholas CBC AUTO DIFFon 12-18-2022 BASO # 0.0 103/ul Normal 0.0-0.1 [facility] Comment on above: Performed By: #### P OCGLUC #### [facility] [address] [place] [address] Dr. Bruce Nicholas Basophils/100 WBC (Bld) 0.6 % Normal 0.2-2.0 [facility] Comment on above: Performed By: #### P OCGLUC #### [facility] [address] [place] [address] Dr. Bruce Nicholas EO # 0.2 103/ul Normal 0.0-0.7 [facility] Comment on above: Performed By: #### P OCGLUC #### [facility] [address] [place] [address] Dr. Bruce Nicholas Eosinophils/100 WBC (Bld) 3.2 % Normal 0.9-7.0 [facility] Comment on above: Performed By: #### P OCGLUC #### [facility] [address] [place] [address] Dr. Bruce Nicholas Erythrocyte distribution width (RBC) [Ratio] 16.6 % Critically high 11.0-15.0 [facility] Comment on above: Performed By: #### P OCGLUC #### [facility] [address] [place] [address] Dr. Bruce Nicholas Hematocrit (Bld) [Volume fraction] 37.9 % Critically low 42.0-54.0 [facility] Comment on above: Performed By: #### P OCGLUC #### [facility] [address] [place] [address] Dr. Bruce Nicholas Hemoglobin (Bld) [Mass/Vol] 12.0 g/dL Critically low 14.0-18.0 [facility] Comment on above: Performed By: #### P OCGLUC #### [facility] [address] [place] [address] Dr. Bruce Nicholas IG # 0.02 10e3/ul Normal 0.00-0.03 [facility] Comment on above: Performed By: #### P OCGLUC #### [facility] [address] [place] [address] Dr. Bruce Nicholas IG % 0.3 % Normal 0.0-0.5 [facility] Comment on above: Performed By: #### P OCGLUC #### [facility] [address] [place] [address] Dr. Bruce Nicholas LYMPH # 1.2 103/ul Normal 1.2-3.8 [facility] Comment on above: Performed By: #### P OCGLUC #### [facility] [address] [place] [address] Dr. Bruce Nicholas Lymphocytes/100 WBC (Bld) 16.7 % Critically low 20.5-60.0 [facility] Comment on above: Performed By: #### P OCGLUC #### [facility] [address] [place] [address] Dr. Bruce Nicholas MANUAL DIFF REQ NO Normal [facility] Comment on above: Performed By: #### P OCGLUC #### [facility] [address] [place] [address] Dr. Bruce Nicholas MCH (RBC) [Entitic mass] 28.4 pg Normal 25.9-34.0 [facility] Comment on above: Performed By: #### P OCGLUC #### [facility] [address] [place] [address] Dr. Bruce Nicholas MCHC (RBC) [Mass/Vol] 31.7 g/dL Normal 29.9-35.2 [facility] Comment on above: Performed By: #### P OCGLUC #### [facility] [address] [place] [address] Dr. Bruce Nicholas MCV (RBC) [Entitic vol] 89.6 fL Normal 80.0-94.0 [facility] Comment on above: Performed By: #### P OCGLUC #### [facility] [address] [place] [address] Dr. Bruce Nicholas MONO # 0.6 103/ul Normal 0.3-0.8 [facility] Comment on above: Performed By: #### P OCGLUC #### [facility] [address] [place] [address] Dr. Bruce Nicholas Monocytes/100 WBC (Bld) 7.9 % Normal 1.7-12.0 [facility] Comment on above: Performed By: #### P OCGLUC #### [facility] [address] [address] [address] Bruce Nicholas NEUT # 5.0 103/ul Normal 1.4-6.5 [facility] Comment on above: Performed By: #### P OCGLUC #### [facility] [address] [place] [address] Dr. Bruce Nicholas Neutrophils/100 WBC (Bld) 71.3 % Normal 43.0-75.0 [facility] Comment on above: Performed By: #### P OCGLUC #### [facility] [address] [place] [address] Dr. Bruce Nicholas Platelet mean volume (Bld) [Entitic vol] 12.4 fL Normal 9.5-13.5 [facility] Comment on above: Performed By: #### P OCGLUC #### [facility] [address] [place] [address] Dr. Bruce Nicholas PLT 156 103/ul Normal 150-450 [facility] Comment on above: Performed By: #### P OCGLUC #### [facility] [address] [place] [address] Dr. Bruce Nicholas RBC 4.23 106/ul Critically low 4.70-6.10 [facility] Comment on above: Performed By: #### P OCGLUC #### [facility] [address] [place] [address] Dr. Bruce Nicholas WBC 6.9 103/ul Normal 4.0-11.0 [facility] Comment on above: Performed By: #### P OCGLUC #### [facility] [address] [place] [address] ABD/PELVIS WO CONon 12-18 CT ABD/PELVIS WO CON EXAMINATION: CT ABD/PELVIS WO CON, 12/18/2022 1:17 PM MST HISTORY: Retention of urine COMPARISON: None. TECHNIQUE: CT scan of the abdomen and pelvis was performed without IV contrast. CT dose reduction technique was used, including Automated Exposure Control. 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 Bruce Nicholas Clarity (U) CLEAR Normal CLEAR [facility] Comment on above: Performed By: #### P OCGLUC #### [facility] [address] [address] [address] Bruce Nicholas Color (U) BROWN Abnormal YELLOW [facility] Comment on above: Performed By: #### P OCGLUC #### [facility] [address] [address] [address] Bruce Nicholas ERUCARRIE A micrscopic examina tion will be performed if indicated. Normal [facility] Comment on above: Performed By: #### P OCGLUC #### [facility] [address] [place] [address] Dr. Bruce Nicholas Glucose Ql (U) Negative Normal NE[facility]IVE [facility] Comment on above: Performed By: #### P OCGLUC #### [facility] [address] [address] [address] Bruce Nicholas Hemoglobin Ql (U) MODERATE Abnormal NEGATIVE [facility] Comment on above: Performed By: #### P OCGLUC #### [facility] [address] [address] [address] Bruce Nicholas Ketones Ql (U) Negative Normal NEGATIVE [facility] Comment on above: Performed By: #### P OCGLUC #### [facility] [address] [address] [address] Bruce Nicholas LEUKOCYTES LARGE Abnormal NEGATIVE [facility] Comment on above: Performed By: #### P OCGLUC #### [facility] [address] [address] [address] Bruce Nicholas Nitrite Ql (U) Positive Abnormal NEGATIVE [facility] Comment on above: Performed By: #### P OCGLUC #### [facility] [address] [address] [address] Bruce Nicholas pH (U) 6.0 [pH] Normal 5-9 [facility] Comment on above: Performed By: #### P OCGLUC #### [facility] [address] [address] [address] Bruce Nicholas Protein (U) [Mass/Vol] 30 mg/dL Abnormal NEGAT MIREILLE/ TRACE [facility] Comment on above: Performed By: #### P OCGLUC #### [facility] [address] [address] [address] Bruce Nicholas SPEC GRAVITY 1.020 Normal 1.005-<=1. 025 [facility] Comment on above: Performed By: #### P OCGLUC #### [facility] [address] [address] [address] Bruce Nicholas UR MICRO IND INDICATED Normal [facility] Comment on above: Performed By: #### P OCGLUC #### [facility] [address] [place] [address] Dr. Bruce Nicholas Urobilinogen Qn (U) 1.0 {Phillip'U}/dL Normal 0.2 - 1. 0 [facility] Comment on above: Performed By: #### P OCGLUC #### [facility] [address] [address] [address] Bruce Nicholas PROF 14(COMP METB)on 023 Albumin [Mass/Vol] 3.0 g/dL Critically low 3.4-5.0 [facility] Comment on above: Performed By: #### C VDTBH #### [facility] [address] [place] [address] Dr. Bruce Nicholas Albumin/Globulin [Mass ratio] 0.9 {ratio} Normal [facility] Comment on above: Performed By: #### C VDTBH #### [facility] [address] [place] [address] Dr. Bruce Nicholas ALP [Catalytic activity/Vol] 112 U/L Normal 46-116 [facility] Comment on above: Performed By: #### C VDTBH #### [facility] [address] [address] [address] Bruce Nicholas ALT [Catalytic activity/Vol] 7 U/L Critically low 16-63 [facility] Comment on above: Performed By: #### C VDTBH #### [facility] [address] [address] [address] Bruce Nicholas Anion gap [Moles/Vol] 5.6 mmol/L Normal [facility] Comment on above: Performed By: #### C VDTBH #### [facility] [address] [address] [address] Bruce Nicholas AST [Catalytic activity/Vol] 19 U/L Normal 15-37 [facility] Comment on above: Performed By: #### C VDTBH #### [facility] [address] [address] [address] Bruce Nicholas Bilirubin [Mass/Vol] 0.6 mg/dL Normal 0.2-1.0 [facility] Comment on above: Performed By: #### C VDTBH #### [facility] [address] [place] [address] Dr. Bruce Nicholas Calcium [Mass/Vol] 9.0 mg/dL Normal 8.5-10.1 [facility] Comment on above: Performed By: #### C VDTBH #### [facility] [address] [place] [address] Dr. Bruce Nicholas Chloride [Moles/Vol] 106 mmol/L Normal 98-107 [facility] Comment on above: Performed By: #### C VDTBH #### [facility] [address] [address] [address] Bruce Nicholas CO2 [Moles/Vol] 29.0 mmol/L Normal 21.0-32.0 [facility] Comment on above: Performed By: #### C VDTBH #### [facility] [address] [address] [address] Bruce Nicholas Creatinine [Mass/Vol] 0.71 mg/dL Normal 0.70-1.30 [facility] Comment on above: Performed By: #### C VDTBH #### [facility] [address] [address] [address] Bruce Nicholas EGFR-AF MEXICAN >60 Normal >=60 [facility] Comment on above: Performed By: #### C VDTBH #### [facility] [address] [address] [address] Bruce Nicholas EGFR-NON AF MEXICAN >60 Normal >=60 [facility] Comment on above: Performed By: #### C VDTBH #### [facility] [address] [address] [address] Bruce Nicholas Globulin (S) [Mass/Vol] 3.2 g/dL Normal [facility] Comment on above: Performed By: #### C VDTBH #### [facility] [address] [address] [address] Bruce Nicholas Glucose [Mass/Vol] 93 mg/dL Normal 74-106 [facility] Comment on above: Performed By: #### C VDTBH #### [facility] [address] [address] [address] Bruce Nicholas Potassium [Moles/Vol] 3.6 mmol/L Normal 3.5-5.1 [facility] Comment on above: Performed By: #### C VDTBH #### [facility] [address] [address] [address] Bruce Nicholas Protein [Mass/Vol] 6.2 g/dL Critically low 6.4-8.2 [facility] Comment on above: Performed By: #### C VDTBH #### [facility] [address] [address] [address] Bruce Nicholas Sodium [Moles/Vol] 137 mmol/L Normal 136-145 [facility] Comment on above: Performed By: #### C VDTBH #### [facility] [address] [address] [address] Bruce Nicholas Urea nitrogen [Mass/Vol] 22.0 mg/dL Critically high 7.0-18.0 [facility] Comment on above: Performed By: #### C VDTBH #### [facility] [address] [address] [address] Bruce Nicholas Urea nitrogen/Creatinine [Mass ratio] 31.0 mg/mg Normal [facility] Comment on above: Performed By: #### C VDTBH #### [facility] [address] [address] [address] Bruce Nicholas URINE MICROSCOPIC ONLYon BACTERIA SMALL Abnormal NONE SEEN [facility] Comment on above: Performed By: #### P OCGLUC #### [facility] [address] [place] [address] Dr. Bruce Nicholas Bacteria identified Cx Nom (U) INDICATED Normal [facility] Comment on above: Performed By: #### P OCGLUC #### [facility] [address] [place] [address] Dr. Brcue Nicholas CAST NONE SEEN Normal NONE SEEN [facility] Comment on above: Performed By: #### P OCGLUC #### [facility] [address] [place] [address] Dr. Bruce Nicholas Crystals LM Nom (Urine sed) NONE SEEN Normal NONE SEEN [facility] Comment on above: Performed By: #### P OCGLUC #### [facility] [address] [place] [address] Dr. Bruce Nicholas Epithelial cells LM Ql (Urine sed) NONE SEEN Normal NONE SEEN /RARE [facility] Comment on above: Performed By: #### P OCGLUC #### [facility] [address] [place] [address] Dr. Bruce Nicholas MUCOUS NONE SEEN Normal NONE SEEN [facility] Comment on above: Performed By: #### P OCGLUC #### [facility] [address] [place] [address] Dr. Bruce Nicholas RBC 10-20 Abnormal 0-2 [facility] Comment on above: Performed By: #### P OCGLUC #### [facility] [address] [place] [address] Dr. Bruce Nicholas WBC 50-75 Abnormal NONE SEEN [facility] Comment on above: Performed By: #### P OCGLUC #### [facility] [address] [place] [address] Dr. Bruce Nicholas CASE MANAGEMon 12-06-2022 CASE MANAGEM Normal [facility] CNDSon 12-06-2022 CNDS Normal [facility] CASE MANAGEMon 12-05-2022 CASE MANAGEM Normal [facility] CONSULT PROGon 12-05-2022 CONSULT PROG Normal [facility] NUTRITIONon 12-05-2022 NUTRITION Normal [facility] SOCIAL WORKon 12-05-2022 SOCIAL WORK Normal [facility] CASE MANAGEMon 12-04-2022 CASE MANAGEM Normal [facility] CONSULTon 12-04-2022 CONSULT Normal [facility] ALLIED HEALTHon 12-03-2022 ALLIED HEALTH Normal [facility] CASE MANAGEMon 12-03-2022 CASE MANAGEM Normal [facility] CBC panel Auto (Bld)on 12-03 Erythrocyte distribution width (RBC) [Ratio] 16.1 % High 11.5-15.0 [facility] Comment on above: Order Comment: Speci men Type: BLOOD SPECIMENOrdering Facility: [facility] Address: [address] [place] [address] Performed By: #### 5 8410-2 ####[facility] LABIA [id number] [place] [address] [place] Hematocrit (Bld) [Volume fraction] 38.3 % Low 39.0-51.0 [facility] Comment on above: Order Comment: Speci men Type: BLOOD SPECIMENOrdering Facility: [facility] Address: [address] [place] [address] Performed By: #### 5 8410-2 ####[facility] LABCLIA [id number] [place] [address] [place] Hemoglobin (Bld) [Mass/Vol] 12.4 g/dL Low 13.0-17.0 [facility] Comment on above: Order Comment: Speci men Type: BLOOD SPECIMENOrdering Facility: [facility] Address: [address] [place] [address] Performed By: #### 5 8410-2 ####[facility] LABCLIA [id number] [place] [id number] MCH (RBC) [Entitic mass] 28.1 pg Normal 26.0-34.0 [facility] Comment on above: Order Comment: Speci men Type: BLOOD SPECIMENOrdering Facility: [facility] Address: [address] [place], [place] [address] Performed By: #### 5 8410-2 ####[facility] LABCLIA [id number] [address] [place] MCHC (RBC) [Mass/Vol] 32.4 g/dL Normal 30.5-36.0 [facility] Comment on above: Order Comment: Speci men Type: BLOOD SPECIMENOrdering Facility: [facility] Address: [address] [place] [address] Performed By: #### 5 8410-2 ####[facility] LABCLIA [id number] [address] [place] MCV (RBC) [Entitic vol] 86.7 fL Normal 80.0-100.0 [facility] Comment on above: Order Comment: Speci men Type: BLOOD SPECIMENOrdering Facility: [facility] Address: [address] [place], [place] [address] Performed By: #### 5 8410-2 ####[facility] LABCLIA [id number] [address] [place] Nucleated RBC (Bld) [#/Vol] 10*3/uL Normal <0.01 [facility] Comment on above: Order Comment: Speci men Type: BLOOD SPECIMENOrdering Facility: [facility] Address: [address] [place], [place] [address] Performed By: #### 5 8410-2 ####[facility] LABCLIA [id number] [address] [place] Platelet mean volume (Bld) [Entitic vol] 13.0 fL High 9.0-12.7 [facility] Comment on above: Order Comment: Speci men Type: BLOOD SPECIMENOrdering Facility: [facility] Address: [address] [place] [address] Performed By: #### 5 8410-2 ####[facility] [id number] [place] [address] [place] Platelets (Bld) [#/Vol] 144 10*3/uL Low 150-400 [facility] Comment on above: Order Comment: Speci men Type: BLOOD SPECIMENOrdering Facility: [facility] Address: [address] [place] [address] Result Comment: Resu lts checked and verified.No clot detected. Performed By: #### 5 8410-2 ####[facility] [id number] [place] [address] [place] RBC (Bld) [#/Vol] 4.42 10*6/uL Normal 4.20-6.00 [facility] Comment on above: Order Comment: Speci men Type: BLOOD SPECIMENOrdering Facility: [facility] Address: [address] [place] [address] Performed By: #### 5 8410-2 ####[facility] [id number] [place] [address] [place] WBC (Bld) [#/Vol] 9.30 10*3/uL Normal 3.70-11.00 [facility] Comment on above: Order Comment: Speci men Type: BLOOD SPECIMENOrdering Facility: [facility] Address: [address] [place] [address] Performed By: #### 5 8410-2 ####[facility] [id number] [place] [address] [place] CONSULT PROGon 12-03-2022 CONSULT PROG Normal [facility] ECG COMPLETEon 12-03-2022 ECG COMPLETE Normal [facility] Gas and Carbon monoxide pane l (BldV)on 12-03-2022 Base excess Calc (BldV) [Moles/Vol] 1 mmol/L Normal 0-2 [facility] Comment on above: Order Comment: Speci men Type: VENOUS BLOOD SPECIMENOrdering Facility: [facility] Address: [address] [address] Performed By: #### 2 4344-4 ####[facility] LABCLIA [id number] [place] [address] [place] Body temperature 97.52 [degF] Normal [facility] Comment on above: Order Comment: Speci men Type: VENOUS BLOOD SPECIMENOrdering Facility: [facility] Address: [address] [address] Performed By: #### 2 4344-4 ####[facility] [id number] [place] [address] [place] Calcium.ionized (Bld) [Mass/Vol] 1.17 mmol/L Normal 1.08-1.30 [facility] Comment on above: Order Comment: Speci men Type: VENOUS BLOOD SPECIMENOrdering Facility: [facility] Address: [address] Performed By: #### 2 4344-4 ####[facility] [id number] [place] [address] [place] Calcium.ionized adjusted to pH 7.4 (BldA) [Moles/Vol] 1.19 mmol/L Normal 1.08-1.30 [facility] Comment on above: Order Comment: Speci men Type: VENOUS BLOOD SPECIMENOrdering Facility: [facility] Address: [address] Performed By: #### 2 4344-4 ####[facility] LABCLIA [id number] [place] [address] [place] Carboxyhemoglobin (BldV) [Mass fraction] 0.6 % Normal 0.0-2.0 [facility] Comment on above: Order Comment: Speci men Type: VENOUS BLOOD SPECIMENOrdering Facility: [facility] Address: [address] Result Comment: Carb oxyhemoglobin Reference Range for Smokers: 2.0-8.0% Performed By: #### 2 4344-4 ####[facility] LABCLIA [id number] [place] [address] [place] CO2 (BldV) [Partial pressure] 38 mm[Hg] Low 42-55 [facility] Comment on above: Order Comment: Speci men Type: VENOUS BLOOD SPECIMENOrdering Facility: [facility] Address: [address] [address] Performed By: #### 2 4344-4 ####[facility] LABCLIA [id number] [place] [address] [place] CO2 [Moles/Vol] 26 mmol/L Normal 25-29 [facility] Comment on above: Order Comment: Speci men Type: VENOUS BLOOD SPECIMENOrdering Facility: [facility] Address: [address] Performed By: #### 2 4344-4 ####[facility] LABCLIA [id number] [place] [address] [place] CO2 adjusted to patient's actual temperature (BldV) [Partial pressure] 37 mmHg Low 42-55 [facility] Comment on above: Order Comment: Speci men Type: VENOUS BLOOD SPECIMENOrdering Facility: [facility] Address: [address] Performed By: #### 2 4344-4 ####[facility] LABCLIA [id number] [place] [address] [place] Glucose [Mass/Vol] 110 mg/dL High 60-105 [facility] Comment on above: Order Comment: Speci men Type: VENOUS BLOOD SPECIMENOrdering Facility: [facility] Address: [address] Performed By: #### 2 4344-4 ####[facility] LABCLIA [id number] [place] [address] [place] HCO3 (Bld) [Moles/Vol] 25 mmol/L Normal 24-28 [facility] Comment on above: Order Comment: Speci men Type: VENOUS BLOOD SPECIMENOrdering Facility: [facility] Address: [address] Performed By: #### 2 4344-4 ####[facility] LABCLIA [id number] [place] [address] [place] Hematocrit (Bld) [Volume fraction] 36.2 % Low 39.0-51.0 [facility] Comment on above: Order Comment: Speci men Type: VENOUS BLOOD SPECIMENOrdering Facility: [facility] Address: [address] Performed By: #### 2 4344-4 ####[facility] LABCLIA [id number] [place] [address] [place] Hemoglobin (Bld) [Mass/Vol] 11.8 g/dL Low 13.0-17.0 [facility] Comment on above: Order Comment: Speci men Type: VENOUS BLOOD SPECIMENOrdering Facility: [facility] Address: [address] Performed By: #### 2 4344-4 ####[facility] LABCLIA [id number] [place] [address] [place] Lactate [Moles/Vol] 1.2 mmol/L Normal 0.5-2.2 [facility] Comment on above: Order Comment: Speci men Type: VENOUS BLOOD SPECIMENOrdering Facility: [facility] Address: [address] Performed By: #### 2 4344-4 ####[facility] LABCLIA [id number] [place] [address] [place] Methemoglobin (Bld) [Mass fraction] 1.5 % Normal 0.0-1.5 [facility] Comment on above: Order Comment: Speci men Type: VENOUS BLOOD SPECIMENOrdering Facility: [facility] Address: [address] [address] Performed By: #### 2 4344-4 ####[facility] LABCLIA [id number] [address] [place] O2 THERAPY RA=Room Air Normal [facility] Comment on above: Order Comment: Speci men Type: VENOUS BLOOD SPECIMENOrdering Facility: [facility] Address: [address] Performed By: #### 2 4344-4 ####[facility] LABCLIA [id number] [place] [address] [place] Oxygen (BldV) [Partial pressure] 56 mm[Hg] High 35-45 [facility] Comment on above: Order Comment: Speci men Type: VENOUS BLOOD SPECIMENOrdering Facility: [facility] Address: [address] Performed By: #### 2 4344-4 ####[facility] LABCLIA [id number] [place] [address] [place] Oxygen adjusted to patient's actual temperature (BldV) [Partial pressure] 54 mmHg High 35-45 [facility] Comment on above: Order Comment: Speci men Type: VENOUS BLOOD SPECIMENOrdering Facility: [facility] Address: [address] [place] [address] Performed By: #### 2 4344-4 ####[facility] LABCLIA [id number] [place] [address] [place] Oxygen saturation in Venous blood 88 % High 60-85 [facility] Comment on above: Order Comment: Speci men Type: VENOUS BLOOD SPECIMENOrdering Facility: [facility] Address: [address] Performed By: #### 2 4344-4 ####[facility] LABCLIA [id number] [place] [address] [place] Oxyhemoglobin (BldV) [Mass fraction] 86 % High 60-85 [facility] Comment on above: Order Comment: Speci men Type: VENOUS BLOOD SPECIMENOrdering Facility: [facility] Address: [address] Performed By: #### 2 4344-4 ####[facility] LABCLIA [id number] [place] [address] [place] pH (BldV) 7.43 [pH] High 7.32-7.42 [facility] Comment on above: Order Comment: Speci men Type: VENOUS BLOOD SPECIMENOrdering Facility: [facility] Address: [address] [place], [place] [address] Performed By: #### 2 4344-4 ####[facility] [id number] [place] [address] [place] pH adjusted to patient's actual temperature (BldV) 7.44 High 7.32-7.42 [facility] Comment on above: Order Comment: Speci men Type: VENOUS BLOOD SPECIMENOrdering Facility: [facility] Address: [address] [place], [place] [address] Performed By: #### 2 4344-4 ####[facility] [id number] [place] [address] [place] Potassium [Moles/Vol] 3.7 mmol/L Normal 3.5-5.0 [facility] Comment on above: Order Comment: Speci men Type: VENOUS BLOOD SPECIMENOrdering Facility: [facility] Address: [address] [place], [place] [address] Performed By: #### 2 4344-4 ####[facility] LABCLIA [id number] [place] [address] [place] Sodium [Moles/Vol] 136 mmol/L Normal 136-144 [facility] Comment on above: Order Comment: Speci men Type: VENOUS BLOOD SPECIMENOrdering Facility: [facility] Address: [address] [id number] Performed By: #### 2 4344-4 ####[facility]IA [id number] [place] [address] [place] MEDICAL EMERon 12-03-2022 MEDICAL KALEB Normal [facility] Magnesium SerPl-mCncon 12-03 Magnesium [Mass/Vol] 2.0 mg/dL Normal 1.7-2.3 [facility] Comment on above: Order Comment: Speci men Type: BLOOD SPECIMENOrdering Facility: [facility] Address: [address] [place], [place] [address] Performed By: #### 2 4362-6, 66483-5 ####[facility] [id number] [place] [address] [place] NURSING PROGon 12-03-2022 NURSING PROG Normal [facility] Renal function 2000 panelon 12-03-2022 Albumin [Mass/Vol] 3.0 g/dL Low 3.9-4.9 [facility] Comment on above: Order Comment: Speci men Type: BLOOD SPECIMENOrdering Facility: [facility] Address: [address] Performed By: #### 2 4362-6, 42360-2 ####[facility] [id number] [place] [address] [place] Anion gap [Moles/Vol] 9 mmol/L Normal 9-18 [facility] Comment on above: Order Comment: Speci men Type: BLOOD SPECIMENOrdering Facility: [facility] Address: [address] [place], [place] [address] Performed By: #### 2 4366, ####[facility] LABCLIA [id number] [facility] [place] [address] [place] Calcium [Mass/Vol] 8.9 mg/dL Normal 8.5-10.2 [facility] Comment on above: Order Comment: Speci men Type: BLOOD SPECIMENOrdering Facility: [facility] Address: [address] [place], [place] [address] Performed By: #### 2 43611-24, ####[facility] LABCLIA [id number] [facility] [place] [address] [place] Chloride [Moles/Vol] 104 mmol/L Normal 97-105 [facility] Comment on above: Order Comment: Speci men Type: BLOOD SPECIMENOrdering Facility: [facility] Address: [address] [place], [place] [address] Performed By: #### 2 4362-03, ####[facility] LABCLIA [id number] [place] [address] [place] CO2 [Moles/Vol] 25 mmol/L Normal 22-30 [facility] Comment on above: Order Comment: Speci men Type: BLOOD SPECIMENOrdering Facility: [facility] Address: [address] [place], [place] [address] Performed By: #### 2 4362-03, ####[facility] LABCLIA [id number] [facility] [place] [address] [place] Creatinine [Mass/Vol] 0.62 mg/dL Low 0.73-1.22 [facility] Comment on above: Order Comment: Speci men Type: BLOOD SPECIMENOrdering Facility: [facility] Address: [address] [place], [place] [address] Performed By: #### 2 43611-24, ####[facility] LABCLIA [id number] [place] [address] [place] ESTIMATED GLOMERULAR FILTRATION RATE 107 mL/min/1.73m??? Normal >=60 [facility] Comment on above: Order Comment: Chaz trevizo Type: BLOOD SPECIMENOrdering Facility: [facility] Address: [address] [address] Result Comment: Karina mated Glomerular Filtration Rate [...] actual GFR. Performed By: #### 2 4362-6, ####[facility] LABCLIA [id number] [place] [address] [place] Glucose [Mass/Vol] 87 mg/dL Normal 74-99 [facility] Comment on above: Order Comment: Chaz trevizo Type: BLOOD SPECIMENOrdering Facility: [facility] Address: [address] [address] Result Comment: The [place] [employer] (ADA) provides guidance for cutoff [...] Standards of Medical Care in Diabetes 2016, [place] [employer]. Diabetes Care. 2016.39(Suppl 1). Performed By: #### 2 4362-6, ####[facility] LABCLIA [id number] [address] [id number] [place] Phosphate [Mass/Vol] 2.4 mg/dL Low 2.7-4.8 [facility] Comment on above: Order Comment: Speci men Type: BLOOD SPECIMENOrdering Facility: [facility] Address: [address] [place], [place] [address] Performed By: #### 2 4362-6, ####[facility] LABCLIA [id number] [place] [address] [place] Potassium [Moles/Vol] 3.8 mmol/L Normal 3.7-5.1 [facility] Comment on above: Order Comment: Speci men Type: BLOOD SPECIMENOrdering Facility: [facility] Address: [address] [place], [place] [address] Performed By: #### 2 4362-6, ####[facility] LABCLIA [id number] [place] [address] [place] Sodium [Moles/Vol] 138 mmol/L Normal 136-144 [facility] Comment on above: Order Comment: Speci men Type: BLOOD SPECIMENOrdering Facility: [facility] Address: [address] [place], [place] [address] Performed By: #### 2 436-6, ####[facility] LABCLIA [id number] [place] [address] [place] Urea nitrogen [Mass/Vol] 24 mg/dL Normal 9-24 [facility] Comment on above: Order Comment: Speci men Type: BLOOD SPECIMENOrdering Facility: [facility] Address: [address] [place] [address] Performed By: #### 2 4362-6, ####[facility] LABCLIA [id number] [address] [id number] [place] THERAPY NTon 12-03-2022 THERAPY NT Normal [facility] Basic metabolic 2000 panelon 12-02-2022 Anion gap [Moles/Vol] 7 mmol/L Low 9-18 [facility] Comment on above: Order Comment: Speci men Type: BLOOD SPECIMENOrdering Facility: [facility] Address: [address] Performed By: #### 1 9123-9, 2777, 15750-2 ####[facility] LABCLIA [id number] [place] [address] [place] Calcium [Mass/Vol] 8.5 mg/dL Normal 8.5-10.2 [facility] Comment on above: Order Comment: Speci men Type: BLOOD SPECIMENOrdering Facility: [facility] Address: [address] [address] Performed By: #### 1 9123-9, 2777, ####[facility] LABCLIA [id number] [place] [address] [place] Chloride [Moles/Vol] 106 mmol/L High 97-105 [facility] Comment on above: Order Comment: Speci men Type: BLOOD SPECIMENOrdering Facility: [facility] Address: [address] Performed By: #### 1 9123-9, 27704-18, ####[facility] LABCLIA [id number] [place] [address] [place] CO2 [Moles/Vol] 27 mmol/L Normal 22-30 [facility] Comment on above: Order Comment: Speci men Type: BLOOD SPECIMENOrdering Facility: [facility] Address: [address] Performed By: #### 1 9123-9, 27704-18, ####[facility] LABCLIA [id number] [place] [address] [place] Creatinine [Mass/Vol] 0.69 mg/dL Low 0.73-1.22 [facility] Comment on above: Order Comment: Speci men Type: BLOOD SPECIMENOrdering Facility: [facility] Address: [address] [id number] Performed By: #### 1 9123-9, 2777-1, 56254-0 ####[facility] LABIA [id number] [address] [place] ESTIMATED GLOMERULAR FILTRATION RATE 103 mL/min/1.73m??? Normal >=60 [facility] Comment on above: Order Comment: Chaz trevizo Type: BLOOD SPECIMENOrdering Facility: [facility] Address: [address] [id number] Result Comment: Karina mated Glomerular Filtration Rate [...] GFR. Performed By: #### 1 9123-9, 2777-1, 42382-6 ####[facility] LABIA [id number] [place] [id number] [place] Glucose [Mass/Vol] 78 mg/dL Normal 74-99 [facility] Comment on above: Order Comment: Chaz trevizo Type: BLOOD SPECIMENOrdering Facility: [facility] Address: [address] [id number] Result Comment: The [place] [employer] (ADA) provides guidance for cutoff [...] Standards of Medical Care in Diabetes 2016, [place] [employer]. Diabetes Care. 2016.39(Suppl 1). Performed By: #### 1 9123-9, 2777-1, 77132-9 ####[facility] LABCLIA [id number] [place] [id number] [place] Potassium [Moles/Vol] 3.6 mmol/L Low 3.7-5.1 [facility] Comment on above: Order Comment: Speci men Type: BLOOD SPECIMENOrdering Facility: [facility] Address: [address] [place] [address] Performed By: #### 1 9123-9, 2777-1, 36999-9 ####[facility] LABIA [id number] [place] [address] [place] Sodium [Moles/Vol] 140 mmol/L Normal 136-144 [facility] Comment on above: Order Comment: Speci men Type: BLOOD SPECIMENOrdering Facility: [facility] Address: [address] [place] [address] Performed By: #### 1 9123-9, 2777-1, 41292-2 ####[facility] LABIA [id number] [place] [address] [place] Urea nitrogen [Mass/Vol] 26 mg/dL High 9-24 [facility] Comment on above: Order Comment: Speci men Type: BLOOD SPECIMENOrdering Facility: [facility] Address: [address] [place], [place] [address] Performed By: #### 1 9123-9, 2777-, 62707-7 ####[facility] LABIA [id number] [place] [id number] [place] CASE MANAGEMon 12-02-2022 CASE MANAGEM Normal [facility] CBC panel Auto (Bld)on 12-02 Erythrocyte distribution width (RBC) [Ratio] 16.2 % High 11.5-15.0 [facility] Comment on above: Order Comment: Speci men Type: BLOOD SPECIMENOrdering Facility: [facility] Address: [address] Performed By: #### 5 8410-2 ####[facility] LABIA [id number] [address] [place] Hematocrit (Bld) [Volume fraction] 39.0 % Normal 39.0-51.0 [facility] Comment on above: Order Comment: Speci men Type: BLOOD SPECIMENOrdering Facility: [facility] Address: [address] Performed By: #### 5 8410-2 ####[facility] LABIA [id number] [place] [address] [place] Hemoglobin (Bld) [Mass/Vol] 12.6 g/dL Low 13.0-17.0 [facility] Comment on above: Order Comment: Speci men Type: BLOOD SPECIMENOrdering Facility: [facility] Address: [address] Performed By: #### 5 8410-2 ####[facility]IA [id number] [place] [address] [place] MCH (RBC) [Entitic mass] 27.8 pg Normal 26.0-34.0 [facility] Comment on above: Order Comment: Speci men Type: BLOOD SPECIMENOrdering Facility: [facility] Address: [address] Performed By: #### 5 8410-2 ####[facility]IA [id number] [place] [address] [place] MCHC (RBC) [Mass/Vol] 32.3 g/dL Normal 30.5-36.0 [facility] Comment on above: Order Comment: Speci men Type: BLOOD SPECIMENOrdering Facility: [facility] Address: [address] Performed By: #### 5 8410-2 ####[facility] LABCLIA [id number] [address] [place] MCV (RBC) [Entitic vol] 85.9 fL Normal 80.0-100.0 [facility] Comment on above: Order Comment: Speci men Type: BLOOD SPECIMENOrdering Facility: [facility] Address: [address] [place] [address] Performed By: #### 5 8410-2 ####[facility]IA [id number] [address] [place] Nucleated RBC (Bld) [#/Vol] 10*3/uL Normal <0.01 [facility] Comment on above: Order Comment: Speci men Type: BLOOD SPECIMENOrdering Facility: [facility] Address: [address] [place] [address] Performed By: #### 5 8410-2 ####[facility]IA [id number] [address] [place] Platelet mean volume (Bld) [Entitic vol] 12.8 fL High 9.0-12.7 [facility] Comment on above: Order Comment: Speci men Type: BLOOD SPECIMENOrdering Facility: [facility] Address: [address] [place] [address] Performed By: #### 5 8410-2 ####[facility]IA [id number] [address] [place] Platelets (Bld) [#/Vol] 129 10*3/uL Low 150-400 [facility] Comment on above: Order Comment: Speci men Type: BLOOD SPECIMENOrdering Facility: [facility] Address: [address] [place] [address] Result Comment: No c lot detected.Results checked and verified. Performed By: #### 5 8410-2 ####[facility] [id number] [address] [place] RBC (Bld) [#/Vol] 4.54 10*6/uL Normal 4.20-6.00 [facility] Comment on above: Order Comment: Speci men Type: BLOOD SPECIMENOrdering Facility: [facility] Address: [address] [place] [address] Performed By: #### 5 8410-2 ####[facility]IA [id number] [place] [address] [place] [facility] WBC (Bld) [#/Vol] 9.16 10*3/uL Normal 3.70-11.00 [facility] Comment on above: Order Comment: Speci men Type: BLOOD SPECIMENOrdering Facility: [facility] Address: [address] [place] [address] Performed By: #### 5 8410-2 ####[facility]IA [id number] [place] [address] [place] CONSULT PROGon 12-02-2022 CONSULT PROG Normal [facility] ECG COMPLETEon 12-02-2022 ECG COMPLETE Normal [facility] Magnesium SerPl-mCncon 12-02 Magnesium [Mass/Vol] 1.8 mg/dL Normal 1.7-2.3 [facility] Comment on above: Order Comment: Speci men Type: BLOOD SPECIMENOrdering Facility: [facility] Address: [address] [place], [place] [address] Performed By: #### 1 9123-9, 2777-1, 46694-7 ####[facility] LABIA [id number] [place] [address] [place] Phosphate SerPl-mCncon 12-02 Phosphate [Mass/Vol] 2.7 mg/dL Normal 2.7-4.8 [facility] Comment on above: Order Comment: Speci men Type: BLOOD SPECIMENOrdering Facility: [facility] Address: [address] [place] [address] Performed By: #### 1 9123-9, 2777-1, 09374-4 ####[facility] LABCLIA [id number] [place] [id number] [place] THERAPY NTon 12-02-2022 THERAPY NT Normal [facility] Basic metabolic 2000 panelon 12-01-2022 Anion gap [Moles/Vol] 10 mmol/L Normal -18 [facility] Comment on above: Order Comment: Speci men Type: BLOOD SPECIMENOrdering Facility: [facility] Address: [address] Performed By: #### 2 4321-2 ####[facility]IA [id number] [address] [place] Anion gap [Moles/Vol] 7 mmol/L Low 9-18 [facility] Comment on above: Order Comment: Speci men Type: BLOOD SPECIMENOrdering Facility: [facility] Address: [address] Performed By: #### 2 4321-2, 2777-1, 62419-1 ####[facility]IA [id number] [place] [address] [place] Calcium [Mass/Vol] 8.8 mg/dL Normal 8.5-10.2 [facility] Comment on above: Order Comment: Speci men Type: BLOOD SPECIMENOrdering Facility: [facility] Address: [address] [place] [address] Performed By: #### 2 4321-2 ####[facility]IA [id number] [place] [id number] [place] Calcium [Mass/Vol] 8.9 mg/dL Normal 8.5-10.2 [facility] Comment on above: Order Comment: Speci men Type: BLOOD SPECIMENOrdering Facility: [facility] Address: [address] Performed By: #### 2 4321-2, 2777-, ####[facility] LABCLIA [id number] [place] [address] [place] Chloride [Moles/Vol] 103 mmol/L Normal 97-105 [facility] Comment on above: Order Comment: Speci men Type: BLOOD SPECIMENOrdering Facility: [facility] Address: [address] [place] [address] Performed By: #### 2 4321-2 ####[facility] LABCLIA [id number] [place] [address] [place] Chloride [Moles/Vol] 104 mmol/L Normal 97-105 [facility] Comment on above: Order Comment: Speci men Type: BLOOD SPECIMENOrdering Facility: [facility] Address: [address] [place] [address] Performed By: #### 2 4321-2, 27704-18, ####[facility] LABCLIA [id number] [place] [address] [place] CO2 [Moles/Vol] 25 mmol/L Normal 22-30 [facility] Comment on above: Order Comment: Speci men Type: BLOOD SPECIMENOrdering Facility: [facility] Address: [address] [place] [address] Performed By: #### 2 4321-2 ####[facility] LABCLIA [id number] [place] [address] [place] Performed By: #### 2 4321-2, 2777, ####[facility] LABCLIA [id number] [place] [id number] [place] Creatinine [Mass/Vol] 0.93 mg/dL Normal 0.73-1.22 [facility] Comment on above: Order Comment: Speci men Type: BLOOD SPECIMENOrdering Facility: [facility] Address: [address] [place] [address] Performed By: #### 2 4321-2 ####[facility]IA [id number] [address] Performed By: #### 2 4321-2, 2777-1, ####[facility]IA [id number] [address] ESTIMATED GLOMERULAR FILTRATION RATE 92 mL/min/1.73m??? Normal >=60 [facility] Comment on above: Order Comment: Speci men Type: BLOOD SPECIMENOrdering Facility: [facility] Address: [address] [place] [address] Result Comment: Karina mated Glomerular Filtration Rate [...] actual GFR. Performed By: #### 2 4321-2 ####[facility]IA [id number] [address] Performed By: #### 2 4321-2, 2777-, ####[facility] LABIA [id number] [address] Glucose [Mass/Vol] 81 mg/dL Normal 74-99 [facility] Comment on above: Order Comment: Speci men Type: BLOOD SPECIMENOrdering Facility: [facility] Address: [address] [place] [address] Result Comment: The [place] [employer] (ADA) provides guidance for cutoff [...] Standards of Medical Care in Diabetes 2016, [place] [employer]. Diabetes Care. 2016.39(Suppl 1). Performed By: #### 2 4321-2 ####[facility] LABCLIA [id number] [address] Performed By: #### 2 4321-2, 2777-, ####[facility]IA [id number] [place] [address] [place] Potassium [Moles/Vol] 4.2 mmol/L Normal 3.7-5.1 [facility] Comment on above: Order Comment: Speci men Type: BLOOD SPECIMENOrdering Facility: [facility] Address: [address] [place] [address] Performed By: #### 2 4321-2 ####[facility] [id number] [address] [place] Potassium [Moles/Vol] 4.3 mmol/L Normal 3.7-5.1 [facility] Comment on above: Order Comment: Speci men Type: BLOOD SPECIMENOrdering Facility: [facility] Address: [address] Performed By: #### 2 4321-2, 27704-18, ####[facility]IA [id number] [place] [address] [place] Sodium [Moles/Vol] 138 mmol/L Normal 136-144 [facility] Comment on above: Order Comment: Speci men Type: BLOOD SPECIMENOrdering Facility: [facility] Address: [address] Performed By: #### 2 4321-2 ####[facility] LABCLIA [id number] [place] [address] [place] Sodium [Moles/Vol] 136 mmol/L Normal 136-144 [facility] Comment on above: Order Comment: Speci men Type: BLOOD SPECIMENOrdering Facility: [facility] Address: [address] [place], [place] [address] Performed By: #### 2 4321-2, 2776-10, ####[facility] LABCLIA [id number] [place] [address] [place] Urea nitrogen [Mass/Vol] 34 mg/dL High 9-24 [facility] Comment on above: Order Comment: Speci men Type: BLOOD SPECIMENOrdering Facility: [facility] Address: [address] [place] [address] Performed By: #### 2 4321-2 ####[facility] LABCLIA [id number] [place] [address] [place] Urea nitrogen [Mass/Vol] 35 mg/dL High 9-24 [facility] Comment on above: Order Comment: Speci men Type: BLOOD SPECIMENOrdering Facility: [facility] Address: [address] [place], [place] [address] Performed By: #### 2 4321-2, 2776-10, ####[facility] LABCLIA [id number] [place] [address] [place] CBC panel Auto (Bld)on 12-01 Erythrocyte distribution width (RBC) [Ratio] 16.6 % High 11.5-15.0 [facility] Comment on above: Order Comment: Speci men Type: BLOOD SPECIMENOrdering Facility: [facility] Address: [address] [place] [address] Performed By: #### 5 8410-2 ####[facility] LABCLIA [id number] [place] [address] [place] Hematocrit (Bld) [Volume fraction] 38.1 % Low 39.0-51.0 [facility] Comment on above: Order Comment: Speci men Type: BLOOD SPECIMENOrdering Facility: [facility] Address: [address] [place] [address] Performed By: #### 5 8410-2 ####[facility] [id number] [place] [address] [place] Hemoglobin (Bld) [Mass/Vol] 12.5 g/dL Low 13.0-17.0 [facility] Comment on above: Order Comment: Speci men Type: BLOOD SPECIMENOrdering Facility: [facility] Address: [address] [place] [address] Performed By: #### 5 8410-2 ####[facility] [id number] [address] [place] MCH (RBC) [Entitic mass] 28.1 pg Normal 26.0-34.0 [facility] Comment on above: Order Comment: Speci men Type: BLOOD SPECIMENOrdering Facility: [facility] Address: [address] [place] [address] Performed By: #### 5 8410-2 ####[facility] [id number] [place] [address] [place] MCHC (RBC) [Mass/Vol] 32.8 g/dL Normal 30.5-36.0 [facility] Comment on above: Order Comment: Speci men Type: BLOOD SPECIMENOrdering Facility: [facility] Address: [address] [place] [address] Performed By: #### 5 8410-2 ####[facility] [id number] [place] [address] [place] MCV (RBC) [Entitic vol] 85.6 fL Normal 80.0-100.0 [facility] Comment on above: Order Comment: Speci men Type: BLOOD SPECIMENOrdering Facility: [facility] Address: [address] [place], [place] [address] Performed By: #### 5 8410-2 ####[facility] LABCLIA [id number] [place] [address] [place] Nucleated RBC (Bld) [#/Vol] 10*3/uL Normal <0.01 [facility] Comment on above: Order Comment: Speci men Type: BLOOD SPECIMENOrdering Facility: [facility] Address: [address] [place], [place] [address] Performed By: #### 5 8410-2 ####[facility]IA [id number] [place] [address] [place] Platelet mean volume (Bld) [Entitic vol] 12.5 fL Normal 9.0-12.7 [facility] Comment on above: Order Comment: Speci men Type: BLOOD SPECIMENOrdering Facility: [facility] Address: [address] [place], [place] [address] Performed By: #### 5 8410-2 ####[facility]IA [id number] [place] [address] [place] Platelets (Bld) [#/Vol] 121 10*3/uL Low 150-400 [facility] Comment on above: Order Comment: Speci men Type: BLOOD SPECIMENOrdering Facility: [facility] Address: [address] [place], [place] [address] Result Comment: Resu lts checked and verified.No clot detected. Performed By: #### 5 8410-2 ####[facility] [id number] [place] [address] [place] RBC (Bld) [#/Vol] 4.45 10*6/uL Normal 4.20-6.00 [facility] Comment on above: Order Comment: Speci men Type: BLOOD SPECIMENOrdering Facility: [facility] Address: [address] [place], [place] [address] Performed By: #### 5 8410-2 ####[facility] LABCLIA [id number] [place] [address] [place] WBC (Bld) [#/Vol] 9.67 10*3/uL Normal 3.70-11.00 [facility] Comment on above: Order Comment: Speci men Type: BLOOD SPECIMENOrdering Facility: [facility] Address: [address] [place], [place] [address] Performed By: #### 5 8410-2 ####[facility] LABCLIA [id number] [place] [id number] [place] CONSULTon 12-01-2022 CONSULT Normal [facility] ECG COMPLETEon 12-01-2022 ECG COMPLETE Normal [facility] HISTORY PHYSICALon HISTORY PHYSICAL Normal [facility] Magnesium SerPl-ncon 12-01 Magnesium [Mass/Vol] 2.0 mg/dL Normal 1.7-2.3 [facility] Comment on above: Order Comment: Speci men Type: BLOOD SPECIMENOrdering Facility: [facility] Address: [address] [place], [place] [address] Performed By: #### 2 4321-2, 2777, ####[facility] LABCLIA [id number] [place] [id number] [place] NUTRITIONon 12-01-2022 NUTRITION Normal [facility] Phosphate SerPl-mCncon 12-01 Phosphate [Mass/Vol] 2.3 mg/dL Low 2.7-4.8 [facility] Comment on above: Order Comment: Speci men Type: BLOOD SPECIMENOrdering Facility: [facility] Address: [address] [place] [address] Performed By: #### 2 4321-2, 2777-1, ####[facility] LABCLIA [id number] [place] [address] [place] SEPSIS LACTATEon 12-01-2022 Lactate [Moles/Vol] 0.9 mmol/L Normal <=2.0 [facility] Comment on above: Order Comment: Speci men Type: BLOOD SPECIMENOrdering Facility: [facility] Address: [address] [place], [place] [address] Performed By: #### S LACT ####[facility]CLIA [id number] [place] [address] [place] THERAPY NTon 12-01-2022 THERAPY NT Normal [facility] US KIDNEY/BLADDERon 12-01-19 23 US KIDNEY/BLADDER Normal [facility] US LEG VEIN DVT [facility]o n 12-01-2022 US LEG VEIN DVT [facility] Normal [facility] Bacteria Bld Culton 11-30-19 Bacteria identified Cx Nom (Bld) CULTURE, BLOOD: No growth 5 days Normal [facility] Comment on above: Performed By: #### 6 00-7 ####[facility]CLIA [id number] [place] [address] [place] Basic metabolic 2000 panelon 11-30-2022 Anion gap [Moles/Vol] 9 mmol/L Normal 9-18 [facility] Comment on above: Order Comment: Speci men Type: BLOOD SPECIMENOrdering Facility: [facility] Address: [address] [place], [place] [address] Performed By: #### 2 777-1, 58256-5, ####[facility] [id number] [place] [address] [place] Calcium [Mass/Vol] 8.7 mg/dL Normal 8.5-10.2 [facility] Comment on above: Order Comment: Speci men Type: BLOOD SPECIMENOrdering Facility: [facility] Address: [address] Performed By: #### 2 777-1, 79745-0, ####[facility]CLIA [id number] [place] [address] [place] Chloride [Moles/Vol] 106 mmol/L High 97-105 [facility] Comment on above: Order Comment: Speci men Type: BLOOD SPECIMENOrdering Facility: [facility] Address: [address] [place] [address] Performed By: #### 2 777-1, 84627-3, ####[facility] [id number] [place] [address] [place] CO2 [Moles/Vol] 22 mmol/L Normal 22-30 [facility] Comment on above: Order Comment: Speci men Type: BLOOD SPECIMENOrdering Facility: [facility] Address: [address] [place] [address] Performed By: #### 2 777-1, 76315-4, ####[facility] [id number] [place] [address] [place] Creatinine [Mass/Vol] 0.96 mg/dL Normal 0.73-1.22 [facility] Comment on above: Order Comment: Speci men Type: BLOOD SPECIMENOrdering Facility: [facility] Address: [address] [place], [place] [address] Performed By: #### 2 777-1, 26500-2, ####[facility] [id number] [place] [address] [place] ESTIMATED GLOMERULAR FILTRATION RATE 88 mL/min/1.73m??? Normal >=60 [facility] Comment on above: Order Comment: Speci men Type: BLOOD SPECIMENOrdering Facility: [facility] Address: [address] [place], [place] [address] Result Comment: Karina mated Glomerular Filtration Rate [...] actual GFR. Performed By: #### 2 777-1, 80526-3, ####[facility]CLIA [id number] [address] [address] [place] Glucose [Mass/Vol] 109 mg/dL High 74-99 [facility] Comment on above: Order Comment: Speci men Type: BLOOD SPECIMENOrdering Facility: [facility] Address: [address] [place] [address] Result Comment: The [place] [employer] (ADA) provides guidance for cutoff [...] Standards of Medical Care in Diabetes 2016, [place] [employer]. Diabetes Care. 2016.39(Suppl 1). Performed By: #### 2 777-1, 35266-0, ####[facility] [id number] [address] [address] [place] Potassium [Moles/Vol] 4.3 mmol/L Normal 3.7-5.1 [facility] Comment on above: Order Comment: Speci men Type: BLOOD SPECIMENOrdering Facility: [facility] Address: [address] [place] [address] Performed By: #### 2 777-1, 47343-3, ####[facility]CL[facility] [id number] [place] [address] [place] Sodium [Moles/Vol] 137 mmol/L Normal 136-144 [facility] Comment on above: Order Comment: Speci men Type: BLOOD SPECIMENOrdering Facility: [facility] Address: [address] [place] [address] Performed By: #### 2 777-1, 91649-8, ####[facility]CL[facility] [id number] [place] [address] [place] Urea nitrogen [Mass/Vol] 36 mg/dL High 9-24 [facility] Comment on above: Order Comment: Speci men Type: BLOOD SPECIMENOrdering Facility: [facility] Address: [address] [place] [address] Performed By: #### 2 777-1, 47706-9, ####[facility] [id number] [place] [address] [place] CBC panel Auto (Bld)on 11-30 Erythrocyte distribution width (RBC) [Ratio] 17.2 % High 11.5-15.0 [facility] Comment on above: Order Comment: Speci men Type: BLOOD SPECIMENOrdering Facility: [facility] Address: [address] [place] [address] Performed By: #### 5 8410-2 ####[facility]CL[facility] [id number] [place] [address] [place] Hematocrit (Bld) [Volume fraction] 36.4 % Low 39.0-51.0 [facility] Comment on above: Order Comment: Speci men Type: BLOOD SPECIMENOrdering Facility: [facility] Address: [address] [place] [address] Performed By: #### 5 8410-2 ####[facility]CL[facility] [id number] [address] [place] Hemoglobin (Bld) [Mass/Vol] 11.7 g/dL Low 13.0-17.0 [facility] Comment on above: Order Comment: Speci men Type: BLOOD SPECIMENOrdering Facility: [facility] Address: [address] [place] [address] Performed By: #### 5 8410-2 ####[facility] [id number] [address] [place] MCH (RBC) [Entitic mass] 27.9 pg Normal 26.0-34.0 [facility] Comment on above: Order Comment: Speci men Type: BLOOD SPECIMENOrdering Facility: [facility] Address: [address] [place] [address] Performed By: #### 5 8410-2 ####[facility] [id number] [address] STATES OF [facility] MCHC (RBC) [Mass/Vol] 32.1 g/dL Normal 30.5-36.0 [facility] Comment on above: Order Comment: Speci men Type: BLOOD SPECIMENOrdering Facility: [facility] Address: [address] [place], [place] [address] Performed By: #### 5 8410-2 ####[facility] [id number] [place] [address] [place] MCV (RBC) [Entitic vol] 86.9 fL Normal 80.0-100.0 [facility] Comment on above: Order Comment: Speci men Type: BLOOD SPECIMENOrdering Facility: [facility] Address: [address] [place], [place] [address] Performed By: #### 5 8410-2 ####[facility] [id number] [address] [place] Nucleated RBC (Bld) [#/Vol] 10*3/uL Normal <0.01 [facility] Comment on above: Order Comment: Speci men Type: BLOOD SPECIMENOrdering Facility: [facility] Address: [address] [place] [address] Performed By: #### 5 8410-2 ####[facility] [id number] [place] [address] [place] Platelet mean volume (Bld) [Entitic vol] Normal [facility] Comment on above: Order Comment: Speci men Type: BLOOD SPECIMENOrdering Facility: [facility] Address: [address] [place] [address] Result Comment: Unab le to Report. Performed By: #### 5 8410-2 ####[facility]IA [id number] [place] [address] [place] Platelets (Bld) [#/Vol] 103 10*3/uL Low 150-400 [facility] Comment on above: Order Comment: Speci men Type: BLOOD SPECIMENOrdering Facility: [facility] Address: [address] [place] [address] Result Comment: No c lot detected.Results checked and verified. Performed By: #### 5 8410-2 ####[facility]IA [id number] [place] [address] [place] RBC (Bld) [#/Vol] 4.19 10*6/uL Low 4.20-6.00 [facility] Comment on above: Order Comment: Speci men Type: BLOOD SPECIMENOrdering Facility: [facility] Address: [address] [place] [address] Performed By: #### 5 8410-2 ####[facility]IA [id number] [place] [address] [place] WBC (Bld) [#/Vol] 9.45 10*3/uL Normal 3.70-11.00 [facility] Comment on above: Order Comment: Speci men Type: BLOOD SPECIMENOrdering Facility: [facility] Address: [address] [place] [address] Performed By: #### 5 8410-2 ####[facility]IA [id number] [place] [address] [place] ECG COMPLETEon 11-30-2022 ECG COMPLETE Normal [facility] Magnesium SerPl-mCncon 11-30 Magnesium [Mass/Vol] 2.1 mg/dL Normal 1.7-2.3 [facility] Comment on above: Order Comment: Speci men Type: BLOOD SPECIMENOrdering Facility: [facility] Address: [address] [place] [address] Performed By: #### 2 777-1, 51049-9, ####[facility] [id number] [place] [address] [place] Phosphate SerPl-mCncon 11-30 Phosphate [Mass/Vol] 2.8 mg/dL Normal 2.7-4.8 [facility] Comment on above: Order Comment: Speci men Type: BLOOD SPECIMENOrdering Facility: [facility] Address: [address] [place] [address] Performed By: #### 2 777-1, 40673-1, ####[facility]IA [id number] [place] [address] [place] Ammonia Plas-sCncon 11-29-19 23 Ammonia (P) [Moles/Vol] 22 umol/L Normal 16-60 [facility] Comment on above: Order Comment: Speci men Type: BLOOD SPECIMENOrdering Facility: [facility] Address: [address] [place] [address] Result Comment: Resu lt may be falsely increased due to the fact that the sample was not received on ice. Performed By: #### 1 6362-6 ####[facility] LABCLIA [id number] [address] [address] [place] Basic metabolic 2000 panelon 11-29-2022 Anion gap [Moles/Vol] 7 mmol/L Low 9-18 [facility] Comment on above: Order Comment: Speci men Type: BLOOD SPECIMENOrdering Facility: [facility] Address: [address] [place] [address] Performed By: #### 1 9123-9, 2157-6, LIPNF, 32958-5, 3016-3, 2777-1, 3024-7 ####[facility] LABCLIA [id number] [place] [address] [place] Calcium [Mass/Vol] 8.7 mg/dL Normal 8.5-10.2 [facility] Comment on above: Order Comment: Speci men Type: BLOOD SPECIMENOrdering Facility: [facility] Address: [address] [place], [place] [address] Performed By: #### 1 9123-9, 2156-6, LIPNF, 98990-3, 3016-3, 2777-1, 3024-7 ####[facility] LABCLIA [id number] [place] [id number] [place] Chloride [Moles/Vol] 111 mmol/L High 97-105 [facility] Comment on above: Order Comment: Speci men Type: BLOOD SPECIMENOrdering Facility: [facility] Address: [address] Performed By: #### 1 9123-9, 2156-6, LIPNF, 57090-4, 3016-3, 2777-1, 3024-7 ####[facility] LABCLIA [id number] [place] [id number] [place] CO2 [Moles/Vol] 23 mmol/L Normal 22-30 [facility] Comment on above: Order Comment: Speci men Type: BLOOD SPECIMENOrdering Facility: [facility] Address: [address] [place] [address] Performed By: #### 1 9123-9, 2157-6, LIPNF, 20566-7, 3016-3, 2777-1, 302-7 ####[facility] LABCLIA [id number] [place] [address] [place] Creatinine [Mass/Vol] 1.08 mg/dL Normal 0.73-1.22 [facility] Comment on above: Order Comment: Speci men Type: BLOOD SPECIMENOrdering Facility: [facility] Address: [address] Performed By: #### 1 9123-9, 2156-6, LIPNF, 22541-0, 3016-3, 2776-1, 7 ####[facility] [id number] [place] [address] [place] ESTIMATED GLOMERULAR FILTRATION RATE 77 mL/min/1.73m??? Normal >=60 [facility] Comment on above: Order Comment: Speci men Type: BLOOD SPECIMENOrdering Facility: [facility] Address: [address] [place] [address] Result Comment: Karina mated Glomerular Filtration Rate [...] actual GFR. Performed By: #### 1 9123-9, 2156-6, LIPNF, 73792-6, 3016-3, 2777-1, 302-7 ####[facility]IA [id number] [place] [id number] [place] Glucose [Mass/Vol] 94 mg/dL Normal 74-99 [facility] Comment on above: Order Comment: Speci men Type: BLOOD SPECIMENOrdering Facility: [facility] Address: [address] [place] [address] Result Comment: The [place] Diabetes Association (ADA) provides guidance for cutoff [...] Standards of Medical Care in Diabetes 2016, [place] [employer]. Diabetes Care. 2016.39(Suppl 1). Performed By: #### 1 9123-9, 2156-6, LIPNF, 78915-7, 3016-3, 2777-1, 3023-7 ####[facility] LABCLIA [id number] [place] [address] [place] Potassium [Moles/Vol] 4.2 mmol/L Normal 3.7-5.1 [facility] Comment on above: Order Comment: Speci men Type: BLOOD SPECIMENOrdering Facility: [facility] Address: [address] [place] [address] Performed By: #### 1 9123-9, 6, LIPNF, 51954-9, 3016-3, 2777-1, 7 ####[facility]CLIA [id number] [place] [address] [place] Sodium [Moles/Vol] 141 mmol/L Normal 136-144 [facility] Comment on above: Order Comment: Speci men Type: BLOOD SPECIMENOrdering Facility: [facility] Address: [address] [place] [address] Performed By: #### 1 9123-9, 2156-6, LIPNF, 96364-9, 3016-3, 2777-1, 3023-7 ####[facility] LABCLIA [id number] [place] [address] [place] Urea nitrogen [Mass/Vol] 38 mg/dL High 9-24 [facility] Comment on above: Order Comment: Speci men Type: BLOOD SPECIMENOrdering Facility: [facility] Address: [address] [place] [address] Performed By: #### 1 9123-9, 2157-6, LIPNF, 37685-7, 3016-3, 2777-1, 3024-7 ####[facility] LABCLIA [id number] [place] [address] [place] CBC panel Auto (Bld)on 11-29 Erythrocyte distribution width (RBC) [Ratio] 17.2 % High 11.5-15.0 [facility] Comment on above: Order Comment: Speci men Type: BLOOD SPECIMENOrdering Facility: [facility] Address: [address] [place] [address] Performed By: #### 5 8410-2 ####[facility]IA [id number] [place] [address] [place] Hematocrit (Bld) [Volume fraction] 33.5 % Low 39.0-51.0 [facility] Comment on above: Order Comment: Speci men Type: BLOOD SPECIMENOrdering Facility: [facility] Address: [address] [place] [address] Performed By: #### 5 8410-2 ####[facility] LABCLIA [id number] [place] [address] [place] Hemoglobin (Bld) [Mass/Vol] 11.1 g/dL Low 13.0-17.0 [facility] Comment on above: Order Comment: Speci men Type: BLOOD SPECIMENOrdering Facility: [facility] Address: [address] [place] [address] Performed By: #### 5 8410-2 ####[facility] [id number] MCH (RBC) [Entitic mass] 27.8 pg Normal 26.0-34.0 [facility] Comment on above: Order Comment: Speci men Type: BLOOD SPECIMENOrdering Facility: [facility] Address: [address] [place] [address] Performed By: #### 5 8410-2 ####[facility] LABCLIA [id number] [address] STATES [facility] MCHC (RBC) [Mass/Vol] 33.1 g/dL Normal 30.5-36.0 [facility] Comment on above: Order Comment: Speci men Type: BLOOD SPECIMENOrdering Facility: [facility] Address: [address] [place] [address] Performed By: #### 5 8410-2 ####[facility] LABCLIA [id number] [address] [place] MCV (RBC) [Entitic vol] 83.8 fL Normal 80.0-100.0 [facility] Comment on above: Order Comment: Speci men Type: BLOOD SPECIMENOrdering Facility: [facility] Address: [address] [place] [address] Performed By: #### 5 8410-2 ####[facility] LABCLIA [id number] [address] [place] Nucleated RBC (Bld) [#/Vol] 10*3/uL Normal <0.01 [facility] Comment on above: Order Comment: Speci men Type: BLOOD SPECIMENOrdering Facility: [facility] Address: [address] [place], [place] [address] Performed By: #### 5 8410-2 ####[facility] LABCLIA [id number] [address] [place] Platelet mean volume (Bld) [Entitic vol] 12.8 fL High 9.0-12.7 [facility] Comment on above: Order Comment: Speci men Type: BLOOD SPECIMENOrdering Facility: [facility] Address: [address] [place] [address] Performed By: #### 5 8410-2 ####[facility]IA [id number] [place] [address] [place] Platelets (Bld) [#/Vol] 101 10*3/uL Low 150-400 [facility] Comment on above: Order Comment: Speci men Type: BLOOD SPECIMENOrdering Facility: [facility] Address: [address] [place] [address] Result Comment: Resu lts checked and verified.No clot detected. Performed By: #### 5 8410-2 ####[facility] [id number] [place] [address] [place] RBC (Bld) [#/Vol] 4.00 10*6/uL Low 4.20-6.00 [facility] Comment on above: Order Comment: Speci men Type: BLOOD SPECIMENOrdering Facility: [facility] Address: [address] [place] [address] Performed By: #### 5 8410-2 ####[facility]IA [id number] [place] [address] [place] WBC (Bld) [#/Vol] 11.59 10*3/uL High 3.70-11.00 [facility] Comment on above: Order Comment: Speci men Type: BLOOD SPECIMENOrdering Facility: [facility] Address: [address] [place] [address] Performed By: #### 5 8410-2 ####[facility]IA [id number] [place] [address] [place] CK SerPl-cCncon 11-29-2022 CK [Catalytic activity/Vol] 21 U/L Low 51-298 [facility] Comment on above: Order Comment: Speci men Type: BLOOD SPECIMENOrdering Facility: [facility] Address: [address] [place] [address] Performed By: #### 1 9123-9, 2157-6, LIPNF, 83211-3, 3016-3, 2777-1, 3024-7 ####[facility] LABCLIA [id number] [place] [address] [place] BRAIN WO IVCONon 11-29-19 CT BRAIN WO IVCON Normal [facility] ECG COMPLETEon 11-29-2022 ECG COMPLETE Normal [facility] Gas and Carbon monoxide pane l (BldV)on 11-29-2022 BASE DEFICIT, VENOUS -2 mmol/L Normal -2-0 [facility] Comment on above: Order Comment: Speci men Type: VENOUS BLOOD SPECIMENOrdering Facility: [facility] Address: [address] [place] [address] Performed By: #### 2 4344-4 ####[facility]CLIA [id number] [place] [address] [place] Body temperature 98.6 [degF] Normal [facility] Comment on above: Order Comment: Speci men Type: VENOUS BLOOD SPECIMENOrdering Facility: [facility] Address: [address] [place] [address] Performed By: #### 2 4344-4 ####[facility] LABCLIA [id number] [place] [address] [place] Calcium.ionized (Bld) [Mass/Vol] 1.22 mmol/L Normal 1.08-1.30 [facility] Comment on above: Order Comment: Speci men Type: VENOUS BLOOD SPECIMENOrdering Facility: [facility] Address: [address] [place] [address] Performed By: #### 2 4344-4 ####[facility]CLIA [id number] [place] [address] [place] Calcium.ionized adjusted to pH 7.4 (BldA) [Moles/Vol] 1.21 mmol/L Normal 1.08-1.30 [facility] Comment on above: Order Comment: Speci men Type: VENOUS BLOOD SPECIMENOrdering Facility: [facility] Address: [address] [place] [address] Performed By: #### 2 4344-4 ####[facility]IA [id number] [address] STATES OF [facility] Carboxyhemoglobin (BldV) [Mass fraction] 0.4 % Normal 0.0-2.0 [facility] Comment on above: Order Comment: Speci men Type: VENOUS BLOOD SPECIMENOrdering Facility: [facility] Address: [address] [place] [address] Result Comment: Carb oxyhemoglobin Reference Range for Smokers: 2.0-8.0% Performed By: #### 2 4344-4 ####[facility]IA [id number] [address] [place] CO2 (BldV) [Partial pressure] 39 mm[Hg] Low 42-55 [facility] Comment on above: Order Comment: Speci men Type: VENOUS BLOOD SPECIMENOrdering Facility: [facility] Address: [address] [place] [address] Performed By: #### 2 4344-4 ####[facility] [id number] [address] [place] CO2 [Moles/Vol] 23 mmol/L Low 25-29 [facility] Comment on above: Order Comment: Speci men Type: VENOUS BLOOD SPECIMENOrdering Facility: [facility] Address: [address] [place], [place] [address] Performed By: #### 2 4344-4 ####[facility]IA [id number] [place] [address] [place] Glucose [Mass/Vol] 155 mg/dL High 60-105 [facility] Comment on above: Order Comment: Speci men Type: VENOUS BLOOD SPECIMENOrdering Facility: [facility] Address: [address] Performed By: #### 2 4344-4 ####[facility]CLIA [id number] [place] [address] [place] HCO3 (Bld) [Moles/Vol] 22 mmol/L Low 24-28 [facility] Comment on above: Order Comment: Speci men Type: VENOUS BLOOD SPECIMENOrdering Facility: [facility] Address: [address] Performed By: #### 2 4344-4 ####[facility] [id number] [place] [address] [place] Hematocrit (Bld) [Volume fraction] 36.7 % Low 39.0-51.0 [facility] Comment on above: Order Comment: Speci men Type: VENOUS BLOOD SPECIMENOrdering Facility: [facility] Address: [address] [place], [place] [address] Performed By: #### 2 4344-4 ####[facility] [id number] [place] [address] [place] Hemoglobin (Bld) [Mass/Vol] 11.9 g/dL Low 13.0-17.0 [facility] Comment on above: Order Comment: Speci men Type: VENOUS BLOOD SPECIMENOrdering Facility: [facility] Address: [address] Performed By: #### 2 4344-4 ####[facility] [id number] [place] [address] [place] Lactate [Moles/Vol] 1.9 mmol/L Normal 0.5-2.2 [facility] Comment on above: Order Comment: Speci men Type: VENOUS BLOOD SPECIMENOrdering Facility: [facility] Address: [address] [place] [address] Performed By: #### 2 4344-4 ####[facility]CLIA [id number] [place] [address] [place] LITERS 2 Liters/min Normal [facility] Comment on above: Order Comment: Speci men Type: VENOUS BLOOD SPECIMENOrdering Facility: [facility] Address: [address] Performed By: #### 2 4344-4 ####[facility]CLIA [id number] [place] [address] [place] Methemoglobin (Bld) [Mass fraction] 1.6 % High 0.0-1.5 [facility] Comment on above: Order Comment: Speci men Type: VENOUS BLOOD SPECIMENOrdering Facility: [facility] Address: [address] Performed By: #### 2 4344-4 ####[facility] [id number] [place] [address] [place] O2 THERAPY NC = Nasal Cannula Normal [facility] Comment on above: Order Comment: Speci men Type: VENOUS BLOOD SPECIMENOrdering Facility: [facility] Address: [address] Performed By: #### 2 4344-4 ####[facility]CLIA [id number] [place] [address] [place] Oxygen (BldV) [Partial pressure] 104 mm[Hg] High 35-45 [facility] Comment on above: Order Comment: Speci men Type: VENOUS BLOOD SPECIMENOrdering Facility: [facility] Address: [address] [place] [address] Performed By: #### 2 4344-4 ####[facility] [id number] [place] [address] [place] Oxygen saturation in Venous blood 97 % High 60-85 [facility] Comment on above: Order Comment: Speci men Type: VENOUS BLOOD SPECIMENOrdering Facility: [facility] Address: [address] [place] [address] Performed By: #### 2 4344-4 ####[facility]CLIA [id number] [address] [address] [place] Oxyhemoglobin (BldV) [Mass fraction] 95 % High 60-85 [facility] Comment on above: Order Comment: Speci men Type: VENOUS BLOOD SPECIMENOrdering Facility: [facility] Address: [address] [place] [address] Performed By: #### 2 4344-4 ####[facility] [id number] [place] [address] [place] pH (BldV) 7.37 [pH] Normal 7.32-7.42 [facility] Comment on above: Order Comment: Speci men Type: VENOUS BLOOD SPECIMENOrdering Facility: [facility] Address: [address] [place] [address] Performed By: #### 2 4344-4 ####[facility] [id number] [place] [address] [place] Potassium [Moles/Vol] 4.1 mmol/L Normal 3.5-5.0 [facility] Comment on above: Order Comment: Speci men Type: VENOUS BLOOD SPECIMENOrdering Facility: [facility] Address: [address] [place] [address] Performed By: #### 2 4344-4 ####[facility] [id number] [place] [address] [place] Sodium [Moles/Vol] 135 mmol/L Low 136-144 [facility] Comment on above: Order Comment: Speci men Type: VENOUS BLOOD SPECIMENOrdering Facility: [facility] Address: [address] [place] [address] Performed By: #### 2 4344-4 ####[facility]CLIA [id number] [address] [place] LIPID PANEL, NONFASTINGon Cholesterol [Mass/Vol] 79 mg/dL Normal <200 [facility] Comment on above: Order Comment: Speci men Type: BLOOD SPECIMENOrdering Facility: [facility] Address: [address] [place] [address] Result Comment: <200 mg/dL, Desirable 200-239 mg/dL, Borderline high>239 mg/dL, High Performed By: #### 1 9123-9, 2156-6, LIPNF, 43406-5, 6-3, 277-1, 302-7 ####[facility]CLIA [id number] [address] [place] HDL CHOLESTEROL, NF 15 mg/dL Low >39 [facility] Comment on above: Order Comment: Speci men Type: BLOOD SPECIMENOrdering Facility: [facility] Address: [address] [place] [address] Result Comment: 40-5 9 mg/dL, Acceptable>59 mg/dL, High: Negative risk factor for coronary heart disease<40 mg/dL, Low: Positive risk factor for coronary heart disease Performed By: #### 1 9123-9, 6, LIPNF, 87163-0, 6-3, 7-1, 302-7 ####[facility]CLIA [id number] [address] [place] LDL CHOLESTEROL, NF 41 mg/dL Normal <100 [facility] Comment on above: Order Comment: Speci men Type: BLOOD SPECIMENOrdering Facility: [facility] Address: [address] [place] [address] Result Comment: <100 mg/dL, Optimal 100-129 mg/dL, Near optimal/above optimal 130-159 mg/dL, Borderline high 160-189 mg/dL, High>189 mg/dL, Very highSecondary prevention optimal LDL Cholesterol levels are recommended to be < 70 mg/dL Performed By: #### 1 9123-9, 7-6, LIPNF, 67010-7, 3016-3, 7-1, 3023-7 ####[facility]CL[facility] [id number] [address] [place] LDL/HDL RATIO, NF 2.73 mg/dL High <2.54 [facility] Comment on above: Order Comment: Speci men Type: BLOOD SPECIMENOrdering Facility: [facility] Address: [address] [place] [address] Result Comment: Refe octavio:1. National Cholesterol Education Program ATP III Guideline At-A-Glance Quick Desk Reference: National Heart, Lung, and Blood [place]. National Institutes of Health. 2001: NIH Publication No. 01-3305.2. An International Atherosclerosis Society position paper: global recommendations for the management of dyslipidemia: executive summary, Atherosclerosis. 2014: 232(2):410-413. Performed By: #### 1 23-9, 2156-6, LIPNF, 14874-6, 3016-3, 2776-1, 3024-04 ####[facility]CL[facility] [id number] [address] OF [facility] NON HDL CHOL, NF 64 mg/dL Normal <130 [facility] Comment on above: Order Comment: Chaz men Type: BLOOD SPECIMENOrdering Facility: [facility] Address: [address] [place] [address] Result Comment: <130 mg/dL, Optimal 130-159 mg/dL, Near optimal/above optimal 160-189 mg/dL, Borderline high 190-219 mg/dL, High>219 mg/dL, Very highSecondary prevention optimal non HDL Cholesterol levels are recommended to be <100 mg/dL Performed By: #### 1 9123-9, 2156-6, LIPNF, 66441-7, 3016-3, 2777-1, 302-7 ####[facility]CLIA [id number] [place] [address] [place] T CHOL/HDL RATIO NF 5.27 mg/dL High <5.10 [facility] Comment on above: Order Comment: Speci men Type: BLOOD SPECIMENOrdering Facility: [facility] Address: [address] [place] [address] Performed By: #### 1 9123-9, 2157-6, LIPNF, 30307-0, 3016-3, 2777-1, 302-7 ####[facility]CL[facility] [id number] [place] [address] [place] TRIGLYCERIDES, NF 117 mg/dL Normal <150 [facility] Comment on above: Order Comment: Speci men Type: BLOOD SPECIMENOrdering Facility: [facility] Address: [address] [place] [address] Result Comment: <150 mg/dL, Normal 150-199 mg/dL, Borderline high 200-499 mg/dL, High>499 mg/dL, Very high Performed By: #### 1 9123-9, 2156-6, LIPNF, 87532-7, 3016-3, 2777-1, 302-7 ####[facility]CLIA [id number] [place] [address] [place] VLDL CHOLESTEROL, NF 23 mg/dL Normal <30 [facility] Comment on above: Order Comment: Speci men Type: BLOOD SPECIMENOrdering Facility: [facility] Address: [address] [place] [address] Performed By: #### 1 9123-9, 2156-6, LIPNF, 42970-3, 3016-3, 2777-1, 302-7 ####[facility] LABCLIA [id number] [place] [address] [place] Magnesium SerPl-mCncon 11-29 Magnesium [Mass/Vol] 2.3 mg/dL Normal 1.7-2.3 [facility] Comment on above: Order Comment: Speci men Type: BLOOD SPECIMENOrdering Facility: [facility] Address: [address] [place] [address] Performed By: #### 1 9123-9, 2156-6, LIPNF, 73858-6, 3016-3, 2777-1, 3023-7 ####[facility] LABCLIA [id number] [place] [address] [place] Phosphate SerPl-mCncon 11-29 Phosphate [Mass/Vol] 2.6 mg/dL Low 2.7-4.8 [facility] [facility] Comment on above: Order Comment: Speci men Type: BLOOD SPECIMENOrdering Facility: [facility] Address: [address] [place] [address] Performed By: #### 1 9123-9, 6, LIPNF, 79875-2, 6-3, 277-1, 7 ####[facility] LABIA [id number] [place] [address] [place] T4 Free SerPl-mCncon 023 Free T4 [Mass/Vol] 0.6 ng/dL Low 0.9-1.7 [facility] Comment on above: Order Comment: Speci men Type: BLOOD SPECIMENOrdering Facility: [facility] Address: [address] [place], [place] [address] Performed By: #### 1 9123-9, 6, LIPNF, 83268-8, 3016-3, 2777-1, 7 ####[facility] LABIA [id number] [place] [address] [place] TSH SerPl-aCncon 11-29-2022 TSH Qn 0.221 m[IU]/L Low 0.270-4.20 0 [facility] Comment on above: Order Comment: Speci men Type: BLOOD SPECIMENOrdering Facility: [facility] Address: [address] [place], [place] [address] Performed By: #### 1 9123-9, 2157-6, LIPNF, 79292-1, 3016-3, 2777-1, 3024-7 ####[facility] LABCLIA [id number] [address] [address] [place] Basic metabolic 2000 panelon 11-28-2022 Anion gap [Moles/Vol] 10 mmol/L Normal 9-18 [facility] Comment on above: Order Comment: Speci men Type: BLOOD SPECIMENOrdering Facility: [facility] Address: [address] Performed By: #### 2 4321-2, 2776-10, ####[facility] LABCLIA [id number] [place] [address] [place] Calcium [Mass/Vol] 8.6 mg/dL Normal 8.5-10.2 [facility] Comment on above: Order Comment: Speci men Type: BLOOD SPECIMENOrdering Facility: [facility] Address: [address] Performed By: #### 2 4321-2, 2776-10, ####[facility] LABCLIA [id number] [place] [address] [place] Chloride [Moles/Vol] 109 mmol/L High 97-105 [facility] Comment on above: Order Comment: Speci men Type: BLOOD SPECIMENOrdering Facility: [facility] Address: [address] [id number] Performed By: #### 2 4321-2, 2776-10, ####[facility] LABCLIA [id number] [address] [address] [place] CO2 [Moles/Vol] 21 mmol/L Low 22-30 [facility] Comment on above: Order Comment: Speci men Type: BLOOD SPECIMENOrdering Facility: [facility] Address: [address] [id number] Performed By: #### 2 4321-2, 2776-10, ####[facility] LABCLIA [id number] [address] [address] [place] Creatinine [Mass/Vol] 1.31 mg/dL High 0.73-1.22 [facility] Comment on above: Order Comment: Speci men Type: BLOOD SPECIMENOrdering Facility: [facility] Address: [address] Performed By: #### 2 4321-2, 2776-10, ####[facility] LABIA [id number] [place] [address] [place] ESTIMATED GLOMERULAR FILTRATION RATE 61 mL/min/1.73m??? Normal >=60 [facility] Comment on above: Order Comment: Speci men Type: BLOOD SPECIMENOrdering Facility: [facility] Address: [address] [place] [address] Result Comment: Karina mated Glomerular Filtration Rate [...] GFR. Performed By: #### 2 4321-2, 2776-10, ####[facility] LABIA [id number] [address] [address] [place] Glucose [Mass/Vol] 113 mg/dL High 74-99 [facility] Comment on above: Order Comment: Speci men Type: BLOOD SPECIMENOrdering Facility: [facility] Address: [address] [place] [address] Result Comment: The [place] [employer] (ADA) provides guidance for cutoff [...] Standards of Medical Care in Diabetes 2016, [place] [employer]. Diabetes Care. 2016.39(Suppl 1). Performed By: #### 2 4321-2, 2776-10, ####[facility] LABCLIA [id number] [place] [address] [place] Potassium [Moles/Vol] 4.9 mmol/L Normal 3.7-5.1 [facility] Comment on above: Order Comment: Speci men Type: BLOOD SPECIMENOrdering Facility: [facility] Address: [address] [place], [place] [address] Performed By: #### 2 4321-2, 2776-10, ####[facility] LABIA [id number] [place] [address] [place] Sodium [Moles/Vol] 140 mmol/L Normal 136-144 [facility] Comment on above: Order Comment: Speci men Type: BLOOD SPECIMENOrdering Facility: [facility] Address: [address] [place] [address] Performed By: #### 2 4321-2, 2776-10, ####[facility]IA [id number] [place] [address] [place] Urea nitrogen [Mass/Vol] 38 mg/dL High 9-24 [facility] Comment on above: Order Comment: Speci men Type: BLOOD SPECIMENOrdering Facility: [facility] Address: [address] [place] [address] Performed By: #### 2 4321-2, 2776-10, 39543-2 ####[facility] LABIA [id number] [place] [address] [place] CBC panel Auto (Bld)on 11-28 Erythrocyte distribution width (RBC) [Ratio] 17.4 % High 11.5-15.0 [facility] Comment on above: Order Comment: Speci men Type: BLOOD SPECIMENOrdering Facility: [facility] Address: [address] [place] [address] Performed By: #### 5 8410-2 ####[facility]IA [id number] [place] [address] [place] Hematocrit (Bld) [Volume fraction] 33.3 % Low 39.0-51.0 [facility] Comment on above: Order Comment: Speci men Type: BLOOD SPECIMENOrdering Facility: [facility] Address: [address] [place] [address] Performed By: #### 5 8410-2 ####[facility] LABIA [id number] [place] [address] [place] Hemoglobin (Bld) [Mass/Vol] 10.8 g/dL Low 13.0-17.0 [facility] Comment on above: Order Comment: Speci men Type: BLOOD SPECIMENOrdering Facility: [facility] Address: [address] [place] [address] Performed By: #### 5 8410-2 ####[facility]IA [id number] [place] [address] [place] MCH (RBC) [Entitic mass] 28.1 pg Normal 26.0-34.0 [facility] Comment on above: Order Comment: Speci men Type: BLOOD SPECIMENOrdering Facility: [facility] Address: [address] [place] [address] Performed By: #### 5 8410-2 ####[facility] LABIA [id number] [place] [address] [place] MCHC (RBC) [Mass/Vol] 32.4 g/dL Normal 30.5-36.0 [facility] Comment on above: Order Comment: Speci men Type: BLOOD SPECIMENOrdering Facility: [facility] Address: [address] [place] [address] Performed By: #### 5 8410-2 ####[facility]IA [id number] [place] [address] [place] MCV (RBC) [Entitic vol] 86.5 fL Normal 80.0-100.0 [facility] Comment on above: Order Comment: Speci men Type: BLOOD SPECIMENOrdering Facility: [facility] Address: [address] [place] [address] Performed By: #### 5 8410-2 ####[facility]IA [id number] [place] [address] [place] Nucleated RBC (Bld) [#/Vol] 10*3/uL Normal <0.01 [facility] Comment on above: Order Comment: Speci men Type: BLOOD SPECIMENOrdering Facility: [facility] Address: [address] [place], [place] [address] Performed By: #### 5 8410-2 ####[facility]IA [id number] [place] [address] [place] Platelet mean volume (Bld) [Entitic vol] 13.2 fL High 9.0-12.7 [facility] Comment on above: Order Comment: Speci men Type: BLOOD SPECIMENOrdering Facility: [facility] Address: [address] [place], [place] [address] Performed By: #### 5 8410-2 ####[facility]IA [id number] [place] [address] [place] Platelets (Bld) [#/Vol] 76 10*3/uL Low 150-400 [facility] Comment on above: Order Comment: Speci men Type: BLOOD SPECIMENOrdering Facility: [facility] Address: [address] [place] [address] Result Comment: Resu lts checked and verified.No clot detected. Performed By: #### 5 8410-2 ####[facility] LABCLIA [id number] [place] [address] [place] RBC (Bld) [#/Vol] 3.85 10*6/uL Low 4.20-6.00 [facility] Comment on above: Order Comment: Speci men Type: BLOOD SPECIMENOrdering Facility: [facility] Address: [address] [place] [address] Performed By: #### 5 8410-2 ####[facility] LABCLIA [id number] [place] [address] [place] WBC (Bld) [#/Vol] 10.98 10*3/uL Normal 3.70-11.00 [facility] Comment on above: Order Comment: Speci men Type: BLOOD SPECIMENOrdering Facility: [facility] Address: [address] [place] [address] Performed By: #### 5 8410-2 ####[facility] LABCLIA [id number] [place] [address] [place] CONSULTon 11-28-2022 CONSULT Normal [facility] Magnesium SerPl-mCncon 11-28 Magnesium [Mass/Vol] 2.1 mg/dL Normal 1.7-2.3 [facility] Comment on above: Order Comment: Speci men Type: BLOOD SPECIMENOrdering Facility: [facility] Address: [address] [place] [address] Performed By: #### 2 4321-2, 2777-1, 23227-8 ####[facility] LABCLIA [id number] [address] [place] [address] [place] Phosphate SerPl-mCncon 11-28 Phosphate [Mass/Vol] 3.4 mg/dL Normal 2.7-4.8 [facility] Comment on above: Order Comment: Speci men Type: BLOOD SPECIMENOrdering Facility: [facility] Address: [address] [place] [address] Performed By: #### 2 4321-2, 2777-1, 69374-0 ####[facility] LABCLIA [id number] [place] [address] [place] THERAPY NTon 11-28-2022 THERAPY NT Normal [facility] Basic metabolic 2000 panelon 11-27-2022 Anion gap [Moles/Vol] 13 mmol/L Normal 9-18 [facility] Comment on above: Order Comment: Speci men Type: BLOOD SPECIMENOrdering Facility: [facility] Address: [address] [place], [place] [address] Performed By: #### 2 4321-2 ####[facility] LABCLIA [id number] [place] [address] [place] Calcium [Mass/Vol] 8.3 mg/dL Low 8.5-10.2 [facility] Comment on above: Order Comment: Speci men Type: BLOOD SPECIMENOrdering Facility: [facility] Address: [address] [place], [place] [address] Performed By: #### 2 4321-2 ####[facility] LABCLIA [id number] [place] [address] [place] Chloride [Moles/Vol] 109 mmol/L High 97-105 [facility] Comment on above: Order Comment: Speci men Type: BLOOD SPECIMENOrdering Facility: [facility] Address: [address] [place], [place] [address] Performed By: #### 2 4321-2 ####[facility] LABCLIA [id number] [place] [address] [place] CO2 [Moles/Vol] 18 mmol/L Low 22-30 [facility] Comment on above: Order Comment: Speci men Type: BLOOD SPECIMENOrdering Facility: [facility] Address: [address] [address] Performed By: #### 2 4321-2 ####[facility] LABCLIA [id number] [place] [address] [place] Creatinine [Mass/Vol] 1.52 mg/dL High 0.73-1.22 [facility] Comment on above: Order Comment: Speci men Type: BLOOD SPECIMENOrdering Facility: [facility] Address: [address] [place] [address] Performed By: #### 2 4321-2 ####[facility] LABCLIA [id number] [address] STATES OF [facility] ESTIMATED GLOMERULAR FILTRATION RATE 51 mL/min/1.73m??? Low >=60 [facility] Comment on above: Order Comment: Speci men Type: BLOOD SPECIMENOrdering Facility: [facility] Address: [address] [place] [address] Result Comment: Karina mated Glomerular Filtration Rate [...] actual GFR. Performed By: #### 2 4321-2 ####[facility] LABCLIA [id number] [place] [address] [place] Glucose [Mass/Vol] 154 mg/dL High 74-99 [facility] Comment on above: Order Comment: Speci men Type: BLOOD SPECIMENOrdering Facility: [facility] Address: [address] [place] [address] Result Comment: The [place] [employer] (ADA) provides guidance for cutoff [...] Standards of Medical Care in Diabetes 2016, [place] [employer]. Diabetes Care. 2016.39(Suppl 1). Performed By: #### 2 4321-2 ####[facility] LABCLIA [id number] [place] [address] [place] Potassium [Moles/Vol] 4.6 mmol/L Normal 3.7-5.1 [facility] Comment on above: Order Comment: Speci men Type: BLOOD SPECIMENOrdering Facility: [facility] Address: [address] [place] [address] Performed By: #### 2 1-2 ####[facility] LABIA [id number] [place] [address] [place] Sodium [Moles/Vol] 140 mmol/L Normal 136-144 [facility] Comment on above: Order Comment: Speci men Type: BLOOD SPECIMENOrdering Facility: [facility] Address: [address] [address] Performed By: #### 2 4321-2 ####[facility] LABCLIA [id number] [place] [address] [place] Urea nitrogen [Mass/Vol] 43 mg/dL High 9-24 [facility] Comment on above: Order Comment: Speci men Type: BLOOD SPECIMENOrdering Facility: [facility] Address: [address] [address] Performed By: #### 2 4321-2 ####[facility] LABCLIA [id number] [place] [address] [place] Anion gap [Moles/Vol] 14 mmol/L Normal 9-18 [facility] Comment on above: Order Comment: Speci men Type: BLOOD SPECIMENOrdering Facility: [facility] Address: [address] [place] [address] Performed By: #### 1 9123-9, 04110-3, 2776- ####[facility] LABCLIA [id number] [place] [address] [place] Calcium [Mass/Vol] 8.7 mg/dL Normal 8.5-10.2 [facility] Comment on above: Order Comment: Speci men Type: BLOOD SPECIMENOrdering Facility: [facility] Address: [address] [place] [address] Performed By: #### 1 9123-9, 40405-1, 2776-10 ####[facility] LABCLIA [id number] [place] [address] [place] Chloride [Moles/Vol] 109 mmol/L High 97-105 [facility] Comment on above: Order Comment: Speci men Type: BLOOD SPECIMENOrdering Facility: [facility] Address: [address] [place], [place] [address] Performed By: #### 1 9123-9, 74078-2, 2776-10 ####[facility] LABCLIA [id number] [place] [address] [place] CO2 [Moles/Vol] 17 mmol/L Low 22-30 [facility] Comment on above: Order Comment: Speci men Type: BLOOD SPECIMENOrdering Facility: [facility] Address: [address] [place], [place] [address] Performed By: #### 1 9123-9, 23641-0, 2776- ####[facility] LABCLIA [id number] [place] [address] [place] Creatinine [Mass/Vol] 1.75 mg/dL High 0.73-1.22 [facility] Comment on above: Order Comment: Chaz trevizo Type: BLOOD SPECIMENOrdering Facility: [facility] Address: [address] [id number] Performed By: #### 1 9123-9, 07936-2, 277- ####[facility] LABCLIA [id number] [place] [address] [place] ESTIMATED GLOMERULAR FILTRATION RATE 43 mL/min/1.73m??? Low >=60 [facility] Comment on above: Order Comment: Chaz trevizo Type: BLOOD SPECIMENOrdering Facility: [facility] Address: [address] [place] [address] Result Comment: Karina mated Glomerular Filtration Rate [...] actual GFR. Performed By: #### 1 9123-9, 62561-8, 2776-10 ####[facility] LABCLIA [id number] [place] [address] [place] Glucose [Mass/Vol] 112 mg/dL High 74-99 [facility] Comment on above: Order Comment: Chaz trevizo Type: BLOOD SPECIMENOrdering Facility: [facility] Address: [address] [place] [address] Result Comment: The [place] [employer] (ADA) provides guidance for cutoff [...] Standards of Medical Care in Diabetes 2016, [place] [employer]. Diabetes Care. 2016.39(Suppl 1). Performed By: #### 1 9123-9, 27617-9, 2776- ####[facility] LABCLIA [id number] [address] [address] [place] Potassium [Moles/Vol] 5.4 mmol/L High 3.7-5.1 [facility] Comment on above: Order Comment: Speci men Type: BLOOD SPECIMENOrdering Facility: [facility] Address: [address] [address] Performed By: #### 1 9123-9, 93030-9, 2776-10 ####[facility] LABCLIA [id number] [place] [address] [place] Sodium [Moles/Vol] 140 mmol/L Normal 136-144 [facility] Comment on above: Order Comment: Chaz trevizo Type: BLOOD SPECIMENOrdering Facility: [facility] Address: [address] [address] Performed By: #### 1 9123-9, , 2776-10 ####[facility] LABCLIA [id number] [place] [address] [place] Urea nitrogen [Mass/Vol] 40 mg/dL High 9-24 [facility] Comment on above: Order Comment: Speci men Type: BLOOD SPECIMENOrdering Facility: [facility] Address: [address] Performed By: #### 1 9123-9, 70516-3, 2776-10 ####[facility] LABCLIA [id number] [address] [address] [place] CASE MANAGEMon 11-27-2022 CASE MANAGEM Normal [facility] CBC panel Auto (Bld)on 02-09 -2023 Erythrocyte distribution width (RBC) [Ratio] 17.2 % High 11.5-15.0 [facility] Comment on above: Order Comment: Speci men Type: BLOOD SPECIMENOrdering Facility: [facility] Address: [address] [place] [address] Performed By: #### 5 8410-2 ####[facility] LABIA [id number] [address] STATES OF [facility] Hematocrit (Bld) [Volume fraction] 36.2 % Low 39.0-51.0 [facility] Comment on above: Order Comment: Speci men Type: BLOOD SPECIMENOrdering Facility: [facility] Address: [address] [place] [address] Performed By: #### 5 8410-2 ####[facility] LABIA [id number] [address] STATES OF [facility] Hemoglobin (Bld) [Mass/Vol] 12.0 g/dL Low 13.0-17.0 [facility] Comment on above: Order Comment: Speci men Type: BLOOD SPECIMENOrdering Facility: [facility] Address: [address] [place] [address] Performed By: #### 5 8410-2 ####[facility]IA [id number] [place] [address] [place] MCH (RBC) [Entitic mass] 28.4 pg Normal 26.0-34.0 [facility] Comment on above: Order Comment: Speci men Type: BLOOD SPECIMENOrdering Facility: [facility] Address: [address] [place], [place] [address] Performed By: #### 5 8410-2 ####[facility]IA [id number] [address] [place] MCHC (RBC) [Mass/Vol] 33.1 g/dL Normal 30.5-36.0 [facility] Comment on above: Order Comment: Speci men Type: BLOOD SPECIMENOrdering Facility: [facility] Address: [address] Performed By: #### 5 8410-2 ####[facility]IA [id number] [address] MCV (RBC) [Entitic vol] 85.8 fL Normal 80.0-100.0 [facility] Comment on above: Order Comment: Speci men Type: BLOOD SPECIMENOrdering Facility: [facility] Address: [address] [place], [place] [address] Performed By: #### 5 8410-2 ####[facility] [id number] [place] [address] [place] Nucleated RBC (Bld) [#/Vol] 10*3/uL Normal <0.01 [facility] Comment on above: Order Comment: Speci men Type: BLOOD SPECIMENOrdering Facility: [facility] Address: [address] [place], [place] [address] Performed By: #### 5 8410-2 ####[facility] [id number] [place] [address] [place] Platelet mean volume (Bld) [Entitic vol] 13.7 fL High 9.0-12.7 [facility] Comment on above: Order Comment: Speci men Type: BLOOD SPECIMENOrdering Facility: [facility] Address: [address] [place], [place] [address] Performed By: #### 5 8410-2 ####[facility] LABIA [id number] [place] [address] [place] Platelets (Bld) [#/Vol] 92 10*3/uL Low 150-400 [facility] Comment on above: Order Comment: Speci men Type: BLOOD SPECIMENOrdering Facility: [facility] Address: [address] [place], [place] [address] Result Comment: Resu lts checked and verified.No clot detected. Performed By: #### 5 8410-2 ####[facility] LABIA [id number] [place] [address] [place] RBC (Bld) [#/Vol] 4.22 10*6/uL Normal 4.20-6.00 [facility] Comment on above: Order Comment: Speci men Type: BLOOD SPECIMENOrdering Facility: [facility] Address: [address] [address] Performed By: #### 5 8410-2 ####[facility] [id number] [place] [address] [place] WBC (Bld) [#/Vol] 14.13 10*3/uL High 3.70-11.00 [facility] Comment on above: Order Comment: Speci men Type: BLOOD SPECIMENOrdering Facility: [facility] Address: [address] [address] Performed By: #### 5 8410-2 ####[facility] [id number] [address] [place] CONSULT PROGon 11-27-2022 CONSULT PROG Normal [facility] Gas and Carbon monoxide pane l (BldV)on 11-27-2022 BASE DEFICIT, VENOUS -5 mmol/L Low -2-0 [facility] Comment on above: Order Comment: Speci men Type: VENOUS BLOOD SPECIMENOrdering Facility: [facility] Address: [address] Performed By: #### 2 4344-4 ####[facility] [id number] [place] [address] [place] Body temperature 98.6 [degF] Normal [facility] Comment on above: Order Comment: Speci men Type: VENOUS BLOOD SPECIMENOrdering Facility: [facility] Address: [address] Performed By: #### 2 4344-4 ####[facility] LABIA [id number] [place] [address] [place] Calcium.ionized (Bld) [Mass/Vol] 1.20 mmol/L Normal 1.08-1.30 [facility] Comment on above: Order Comment: Speci men Type: VENOUS BLOOD SPECIMENOrdering Facility: [facility] Address: [address] [place] [address] Performed By: #### 2 4344-4 ####[facility] [id number] [place] [address] [place] Calcium.ionized adjusted to pH 7.4 (BldA) [Moles/Vol] 1.17 mmol/L Normal 1.08-1.30 [facility] Comment on above: Order Comment: Speci men Type: VENOUS BLOOD SPECIMENOrdering Facility: [facility] Address: [address] [place] [address] Performed By: #### 2 4344-4 ####[facility] [id number] [place] [address] [place] Carboxyhemoglobin (BldV) [Mass fraction] 0.1 % Normal 0.0-2.0 [facility] Comment on above: Order Comment: Speci men Type: VENOUS BLOOD SPECIMENOrdering Facility: [facility] Address: [address] [place], [place] [id number] Result Comment: Carb oxyhemoglobin Reference Range for Smokers: 2.0-8.0% Performed By: #### 2 4344-4 ####[facility] [id number] [place] [address] [place] CO2 (BldV) [Partial pressure] 35 mm[Hg] Low 42-55 [facility] Comment on above: Order Comment: Speci men Type: VENOUS BLOOD SPECIMENOrdering Facility: [facility] Address: [address] [place] [address] Performed By: #### 2 4344-4 ####[facility] LABCLIA [id number] [place] [address] [place] CO2 [Moles/Vol] 20 mmol/L Low 25-29 [facility] Comment on above: Order Comment: Speci men Type: VENOUS BLOOD SPECIMENOrdering Facility: [facility] Address: [address] [address] Performed By: #### 2 4344-4 ####[facility] LABCLIA [id number] [place] [address] [place] Glucose [Mass/Vol] 159 mg/dL High 60-105 [facility] Comment on above: Order Comment: Speci men Type: VENOUS BLOOD SPECIMENOrdering Facility: [facility] Address: [address] [place] [address] Performed By: #### 2 4344-4 ####[facility] LABCLIA [id number] [place] [address] [place] HCO3 (Bld) [Moles/Vol] 19 mmol/L Low 24-28 [facility] Comment on above: Order Comment: Speci men Type: VENOUS BLOOD SPECIMENOrdering Facility: [facility] Address: [address] [place] [address] Performed By: #### 2 4344-4 ####[facility] LABCLIA [id number] [place] [address] [place] Hematocrit (Bld) [Volume fraction] 36.7 % Low 39.0-51.0 [facility] Comment on above: Order Comment: Speci men Type: VENOUS BLOOD SPECIMENOrdering Facility: [facility] Address: [address] [place], [place] [address] Performed By: #### 2 4344-4 ####[facility] LABCLIA [id number] [place] [address] [place] Hemoglobin (Bld) [Mass/Vol] 11.9 g/dL Low 13.0-17.0 [facility] Comment on above: Order Comment: Speci men Type: VENOUS BLOOD SPECIMENOrdering Facility: [facility] Address: [address] Performed By: #### 2 4344-4 ####[facility] LABCLIA [id number] [place] [address] [place] Lactate [Moles/Vol] 2.0 mmol/L Normal 0.5-2.2 [facility] Comment on above: Order Comment: Speci men Type: VENOUS BLOOD SPECIMENOrdering Facility: [facility] Address: [address] Performed By: #### 2 4344-4 ####[facility] LABCLIA [id number] [place] [address] [place] LITERS 5 Liters/min Normal [facility] Comment on above: Order Comment: Speci men Type: VENOUS BLOOD SPECIMENOrdering Facility: [facility] Address: [address] Performed By: #### 2 4344-4 ####[facility] LABCLIA [id number] [place] [address] [place] Methemoglobin (Bld) [Mass fraction] 1.7 % High 0.0-1.5 [facility] Comment on above: Order Comment: Speci men Type: VENOUS BLOOD SPECIMENOrdering Facility: [facility] Address: [address] Performed By: #### 2 4344-4 ####[facility] LABIA [id number] [place] [address] [place] O2 THERAPY NC = Nasal Cannula Normal [facility] Comment on above: Order Comment: Speci men Type: VENOUS BLOOD SPECIMENOrdering Facility: [facility] Address: [address] Performed By: #### 2 4344-4 ####[facility] LABCLIA [id number] [place] [address] [place] Oxygen (BldV) [Partial pressure] 71 mm[Hg] High 35-45 [facility] Comment on above: Order Comment: Speci men Type: VENOUS BLOOD SPECIMENOrdering Facility: [facility] Address: [address] [place] [address] Performed By: #### 2 4344-4 ####[facility] LABCLIA [id number] [place] [address] [place] Oxygen saturation in Venous blood 94 % High 60-85 [facility] Comment on above: Order Comment: Speci men Type: VENOUS BLOOD SPECIMENOrdering Facility: [facility] Address: [address] [place] [address] Performed By: #### 2 4344-4 ####[facility] LABIA [id number] [place] [address] [place] Oxyhemoglobin (BldV) [Mass fraction] 92 % High 60-85 [facility] Comment on above: Order Comment: Speci men Type: VENOUS BLOOD SPECIMENOrdering Facility: [facility] Address: [address] [place], [place] [address] Performed By: #### 2 4344-4 ####[facility] LABIA [id number] [place] [address] [place] pH (BldV) 7.36 [pH] Normal 7.32-7.42 [facility] Comment on above: Order Comment: Speci men Type: VENOUS BLOOD SPECIMENOrdering Facility: [facility] Address: [address] [place], [place] [address] Performed By: #### 2 4344-4 ####[facility] LABIA [id number] [place] [address] [place] Potassium [Moles/Vol] 4.3 mmol/L Normal 3.5-5.0 [facility] Comment on above: Order Comment: Speci men Type: VENOUS BLOOD SPECIMENOrdering Facility: [facility] Address: [address] Performed By: #### 2 4344-4 ####[facility] LABCLIA [id number] [place] [address] [place] Sodium [Moles/Vol] 137 mmol/L Normal 136-144 [facility] Comment on above: Order Comment: Speci men Type: VENOUS BLOOD SPECIMENOrdering Facility: [facility] Address: [address] [address] Performed By: #### 2 4344-4 ####[facility] LABCLIA [id number] [place] [address] [place] BASE DEFICIT, VENOUS -5 mmol/L Low -2-0 [facility] Comment on above: Order Comment: Speci men Type: VENOUS BLOOD SPECIMENOrdering Facility: [facility] Address: [address] [address] Performed By: #### 2 4344-4 ####[facility] LABCLIA [id number] [place] [address] [place] Body temperature 98.6 [degF] Normal [facility] Comment on above: Order Comment: Speci men Type: VENOUS BLOOD SPECIMENOrdering Facility: [facility] Address: [address] Performed By: #### 2 4344-4 ####[facility] LABCLIA [id number] [place] [address] [place] Calcium.ionized (Bld) [Mass/Vol] 1.21 mmol/L Normal 1.08-1.30 [facility] Comment on above: Order Comment: Speci men Type: VENOUS BLOOD SPECIMENOrdering Facility: [facility] Address: [address] Performed By: #### 2 4344-4 ####[facility] LABCLIA [id number] [place] [address] [place] Calcium.ionized adjusted to pH 7.4 (BldA) [Moles/Vol] 1.18 mmol/L Normal 1.08-1.30 [facility] Comment on above: Order Comment: Speci men Type: VENOUS BLOOD SPECIMENOrdering Facility: [facility] Address: [address] [address] Performed By: #### 2 4344-4 ####[facility] LABIA [id number] [place] [address] [place] Carboxyhemoglobin (BldV) [Mass fraction] 0.8 % Normal 0.0-2.0 [facility] Comment on above: Order Comment: Speci men Type: VENOUS BLOOD SPECIMENOrdering Facility: [facility] Address: [address] [place] [address] Result Comment: Carb oxyhemoglobin Reference Range for Smokers: 2.0-8.0% Performed By: #### 2 4344-4 ####[facility] LABIA [id number] [place] [address] [place] CO2 (BldV) [Partial pressure] 36 mm[Hg] Low 42-55 [facility] Comment on above: Order Comment: Speci men Type: VENOUS BLOOD SPECIMENOrdering Facility: [facility] Address: [address] Performed By: #### 2 4344-4 ####[facility] LABIA [id number] [place] [address] [place] CO2 [Moles/Vol] 21 mmol/L Low 25-29 [facility] Comment on above: Order Comment: Speci men Type: VENOUS BLOOD SPECIMENOrdering Facility: [facility] Address: [address] [address] Performed By: #### 2 4344-4 ####[facility] LABCLIA [id number] [place] [address] [place] FIO2 35 % Normal [facility] Comment on above: Order Comment: Speci men Type: VENOUS BLOOD SPECIMENOrdering Facility: [facility] Address: [address] [place] [address] Performed By: #### 2 4344-4 ####[facility] LABCLIA [id number] [place] [address] [place] Glucose [Mass/Vol] 129 mg/dL High 60-105 [facility] Comment on above: Order Comment: Speci men Type: VENOUS BLOOD SPECIMENOrdering Facility: [facility] Address: [address] [place] [address] Performed By: #### 2 4344-4 ####[facility] LABCLIA [id number] [place] [address] [place] HCO3 (Bld) [Moles/Vol] 20 mmol/L Low 24-28 [facility] Comment on above: Order Comment: Speci men Type: VENOUS BLOOD SPECIMENOrdering Facility: [facility] Address: [address] [place], [place] [address] Performed By: #### 2 4344-4 ####[facility] LABCLIA [id number] [place] [address] [place] Hematocrit (Bld) [Volume fraction] 37.1 % Low 39.0-51.0 [facility] Comment on above: Order Comment: Speci men Type: VENOUS BLOOD SPECIMENOrdering Facility: [facility] Address: [address] [place], [place] [address] Performed By: #### 2 4344-4 ####[facility] LABCLIA [id number] [place] [address] [place] Hemoglobin (Bld) [Mass/Vol] 12.0 g/dL Low 13.0-17.0 [facility] Comment on above: Order Comment: Speci men Type: VENOUS BLOOD SPECIMENOrdering Facility: [facility] Address: [address] [address] Performed By: #### 2 4344-4 ####[facility] LABCLIA [id number] [address] STATES OF [facility] Lactate [Moles/Vol] 1.8 mmol/L Normal 0.5-2.2 [facility] Comment on above: Order Comment: Speci men Type: VENOUS BLOOD SPECIMENOrdering Facility: [facility] Address: [address] [address] Performed By: #### 2 4344-4 ####[facility] LABCLIA [id number] [address] [place] Methemoglobin (Bld) [Mass fraction] 1.5 % Normal 0.0-1.5 [facility] Comment on above: Order Comment: Speci men Type: VENOUS BLOOD SPECIMENOrdering Facility: [facility] Address: [address] [address] Performed By: #### 2 4344-4 ####[facility] LABCLIA [id number] [address] [place] O2 THERAPY Hi-Flow Nasal Cannula-Heated Normal [facility] Comment on above: Order Comment: Speci men Type: VENOUS BLOOD SPECIMENOrdering Facility: [facility] Address: [address] [place] [address] Performed By: #### 2 4344-4 ####[facility] LABCLIA [id number] [place] [address] [place] Oxygen (BldV) [Partial pressure] 62 mm[Hg] High 35-45 [facility] Comment on above: Order Comment: Speci men Type: VENOUS BLOOD SPECIMENOrdering Facility: [facility] Address: [address] Performed By: #### 2 4344-4 ####[facility] LABCLIA [id number] [place] [address] [place] Oxygen saturation in Venous blood 90 % High 60-85 [facility] Comment on above: Order Comment: Speci men Type: VENOUS BLOOD SPECIMENOrdering Facility: [facility] Address: [address] [place] [address] Performed By: #### 2 4344-4 ####[facility] LABCLIA [id number] [place] [address] [place] Oxyhemoglobin (BldV) [Mass fraction] 88 % High 60-85 [facility] Comment on above: Order Comment: Speci men Type: VENOUS BLOOD SPECIMENOrdering Facility: [facility] Address: [address] [place], [place] [address] Performed By: #### 2 4344-4 ####[facility] LABCLIA [id number] [place] [address] [place] pH (BldV) 7.35 [pH] Normal 7.32-7.42 [facility] Comment on above: Order Comment: Speci men Type: VENOUS BLOOD SPECIMENOrdering Facility: [facility] Address: [address] [place], [place] [address] Performed By: #### 2 4344-4 ####[facility] LABCLIA [id number] [place] [address] [place] Potassium [Moles/Vol] 4.7 mmol/L Normal 3.5-5.0 [facility] Comment on above: Order Comment: Speci men Type: VENOUS BLOOD SPECIMENOrdering Facility: [facility] Address: [address] [place], [place] [address] Performed By: #### 2 4344-4 ####[facility] LABCLIA [id number] [place] [address] [place] Sodium [Moles/Vol] 139 mmol/L Normal 136-144 [facility] Comment on above: Order Comment: Speci men Type: VENOUS BLOOD SPECIMENOrdering Facility: [facility] Address: [address] [place] [id number] Performed By: #### 2 4344-4 ####[facility] LABCLIA [id number] [place] [id number] [place] Magnesium SerPl-mCncon 11-27 Magnesium [Mass/Vol] 2.2 mg/dL Normal 1.7-2.3 [facility] Comment on above: Order Comment: Speci men Type: BLOOD SPECIMENOrdering Facility: [facility] Address: [address] [address] Performed By: #### 1 9123-9, 34500-3, 2777-1 ####[facility] LABIA [id number] [place] [address] [place] Phosphate SerPl-mCncon 11-27 Phosphate [Mass/Vol] 3.9 mg/dL Normal 2.7-4.8 [facility] Comment on above: Order Comment: Speci men Type: BLOOD SPECIMENOrdering Facility: [facility] Address: [address] [address] Performed By: #### 1 9123-9, 52765-7, 2777-1 ####[facility] LABIA [id number] [place] [address] [place] THERAPY NTon 11-27-2022 THERAPY NT Normal [facility] XR CHEST 1V FRONTAL PORTon 0 11-27-2022 XR CHEST 1V FRONTAL PORT Normal [facility] Bacteria Bld Culton 11-26-19 23 Bacteria identified Cx Nom (Bld) Abnormal [facility] Comment on above: Performed By: #### 6 00-7 ####[facility] LABCLIA [id number] [place] [address] [place] Bacteria identified Cx Nom (Bld) ORGANISM ID: 1 Klebsiella (enterobacter) aerogenes Refer to specimen collected on 11/26/2022 1147 ([id number]) GRAM STAIN: Gram negative bacilli Abnormal [facility] Comment on above: Performed By: #### 6 00-7 ####[facility] LABIA [id number] [address] [place] CASE MANAGEMon 11-26-2022 CASE MANAGEM Normal [facility] CBC panel Auto (Bld)on 11-26 Erythrocyte distribution width (RBC) [Ratio] 16.9 % High 11.5-15.0 [facility] Comment on above: Order Comment: Speci men Type: BLOOD SPECIMENOrdering Facility: [facility] Address: [address] [place] [address] Performed By: #### 5 8410-2 ####[facility] LABIA [id number] [address] STATES [facility] Hematocrit (Bld) [Volume fraction] 34.9 % Low 39.0-51.0 [facility] Comment on above: Order Comment: Speci men Type: BLOOD SPECIMENOrdering Facility: [facility] Address: [address] [place] [address] Performed By: #### 5 8410-2 ####[facility] LABIA [id number] [address] [place] Hemoglobin (Bld) [Mass/Vol] 11.1 g/dL Low 13.0-17.0 [facility] Comment on above: Order Comment: Speci men Type: BLOOD SPECIMENOrdering Facility: [facility] Address: [address] [place] [address] Performed By: #### 5 8410-2 ####[facility] LABIA [id number] [address] [place] MCH (RBC) [Entitic mass] 28.2 pg Normal 26.0-34.0 [facility] Comment on above: Order Comment: Speci men Type: BLOOD SPECIMENOrdering Facility: [facility] Address: [address] Performed By: #### 5 8410-2 ####[facility] [id number] [address] [place] MCHC (RBC) [Mass/Vol] 31.8 g/dL Normal 30.5-36.0 [facility] Comment on above: Order Comment: Speci men Type: BLOOD SPECIMENOrdering Facility: [facility] Address: [address] Performed By: #### 5 8410-2 ####[facility] [id number] [place] [address] [place] MCV (RBC) [Entitic vol] 88.8 fL Normal 80.0-100.0 [facility] Comment on above: Order Comment: Speci men Type: BLOOD SPECIMENOrdering Facility: [facility] Address: [address] Performed By: #### 5 8410-2 ####[facility] [id number] [place] [address] [place] Nucleated RBC (Bld) [#/Vol] 10*3/uL Normal <0.01 [facility] Comment on above: Order Comment: Speci men Type: BLOOD SPECIMENOrdering Facility: [facility] Address: [address] [place], [place] [address] Performed By: #### 5 8410-2 ####[facility] [id number] [place] [address] [place] Platelet mean volume (Bld) [Entitic vol] 12.2 fL Normal 9.0-12.7 [facility] Comment on above: Order Comment: Speci men Type: BLOOD SPECIMENOrdering Facility: [facility] Address: [address] [place], [place] [address] Performed By: #### 5 8410-2 ####[facility] LABCLIA [id number] [place] [address] [place] Platelets (Bld) [#/Vol] 88 10*3/uL Low 150-400 [facility] Comment on above: Order Comment: Speci men Type: BLOOD SPECIMENOrdering Facility: [facility] Address: [address] [place] [address] Result Comment: Resu lts checked and verified.No clot detected. Performed By: #### 5 8410-2 ####[facility] LABIA [id number] [place] [address] [place] RBC (Bld) [#/Vol] 3.93 10*6/uL Low 4.20-6.00 [facility] Comment on above: Order Comment: Speci men Type: BLOOD SPECIMENOrdering Facility: [facility] Address: [address] [place] [address] Performed By: #### 5 8410-2 ####[facility] LABIA [id number] [place] [address] [place] WBC (Bld) [#/Vol] 4.71 10*3/uL Normal 3.70-11.00 [facility] Comment on above: Order Comment: Speci men Type: BLOOD SPECIMENOrdering Facility: [facility] Address: [address] [place], [place] [address] Performed By: #### 5 8410-2 ####[facility] LABIA [id number] [place] [address] [place] CONSULT PROGon 11-26-2022 CONSULT PROG Normal [facility] CRP SerPl-mCncon 11-26-2022 CRP [Mass/Vol] 17.0 mg/dL High <0.9 [facility] Comment on above: Order Comment: Speci men Type: BLOOD SPECIMENOrdering Facility: [facility] Address: [address] [place], [place] [address] Performed By: #### 2 4323-8, 42926-9, 1988-02 ####[facility] LABCLIA [id number] [place] [address] [place] Comprehensive metabolic 2000 panelon 11-26-2022 Albumin [Mass/Vol] 2.8 g/dL Low 3.9-4.9 [facility] Comment on above: Order Comment: Speci men Type: BLOOD SPECIMENOrdering Facility: [facility] Address: [address] Performed By: #### 2 4323-8, 41642-4, 1988-02 ####[facility] LABIA [id number] [place] [address] [place] ALP [Catalytic activity/Vol] 95 U/L Normal 38-113 [facility] Comment on above: Order Comment: Speci men Type: BLOOD SPECIMENOrdering Facility: [facility] Address: [address] [place], [place] [address] Performed By: #### 2 4323-8, 28628-0, 1988-02 ####[facility] LABIA [id number] [address] STATES OF [facility] ALT [Catalytic activity/Vol] U/L Low 10-54 [facility] Comment on above: Order Comment: Speci men Type: BLOOD SPECIMENOrdering Facility: [facility] Address: [address] [place], [place] [address] Result Comment: Resu lt rechecked. Performed By: #### 2 4323-8, 90716-2, 1988-02 ####[facility] LABIA [id number] [place] [address] [place] Anion gap [Moles/Vol] 10 mmol/L Normal 9-18 [facility] Comment on above: Order Comment: Speci men Type: BLOOD SPECIMENOrdering Facility: [facility] Address: [address] [place], [place] [address] Performed By: #### 2 432-8, 96224-0, 1988-02 ####[facility] LABCLIA [id number] [place] [address] [place] AST [Catalytic activity/Vol] 10 U/L Low 14-40 [facility] Comment on above: Order Comment: Speci men Type: BLOOD SPECIMENOrdering Facility: [facility] Address: [address] [place], [place] [address] Performed By: #### 2 432-8, , 1988-02 ####[facility] LABIA [id number] [place] [address] [place] Bilirubin [Mass/Vol] 0.4 mg/dL Normal 0.2-1.3 [facility] Comment on above: Order Comment: Speci men Type: BLOOD SPECIMENOrdering Facility: [facility] Address: [address] Performed By: #### 2 432-8, 78551-7, 1988-02 ####[facility] LABIA [id number] [place] [address] [place] Calcium [Mass/Vol] 8.1 mg/dL Low 8.5-10.2 [facility] Comment on above: Order Comment: Speci men Type: BLOOD SPECIMENOrdering Facility: [facility] Address: [address] [place] [address] Performed By: #### 2 432-8, , 1988-02 ####[facility] LABIA [id number] [place] [id number] [place] Chloride [Moles/Vol] 108 mmol/L High 97-105 [facility] Comment on above: Order Comment: Speci men Type: BLOOD SPECIMENOrdering Facility: [facility] Address: [address] [place] Performed By: #### 2 432-8, 55152-31988-02 ####[facility] LABIA [id number] [place] [address] [place] CO2 [Moles/Vol] 20 mmol/L Low 22-30 [facility] Comment on above: Order Comment: Speci men Type: BLOOD SPECIMENOrdering Facility: [facility] Address: [address] [place] [address] Performed By: #### 2 4323-8, 94563-5, 1988-02 ####[facility] LABIA [id number] [place] [address] [place] Creatinine [Mass/Vol] 1.92 mg/dL High 0.73-1.22 [facility] Comment on above: Order Comment: Speci men Type: BLOOD SPECIMENOrdering Facility: [facility] Address: [address] [place] [address] Performed By: #### 2 4323-8, 61161-[address]-02 ####[facility] [id number] [place] [address] [place] ESTIMATED GLOMERULAR FILTRATION RATE 38 mL/min/1.73m??? Low >=60 [facility] Comment on above: Order Comment: Speci men Type: BLOOD SPECIMENOrdering Facility: [facility] Address: [address] [place] [address] Result Comment: Karina mated Glomerular Filtration Rate [...] actual GFR. Performed By: #### 2 4323-8, 76209-3, 1988-02 ####[facility] LABIA [id number] [place] [id number] [place] Glucose [Mass/Vol] 88 mg/dL Normal 74-99 [facility] Comment on above: Order Comment: Chaz trevizo Type: BLOOD SPECIMENOrdering Facility: [facility] Address: [address] Result Comment: The [place] [employer] (ADA) provides guidance for cutoff [...] Standards of Medical Care in Diabetes 2016, [place] [employer]. Diabetes Care. 2016.39(Suppl 1). Performed By: #### 2 4323-8, 81579-6, 1988-02 ####[facility] LABCLIA [id number] [place] [address] [place] Potassium [Moles/Vol] 4.4 mmol/L Normal 3.7-5.1 [facility] Comment on above: Order Comment: Chaz trevizo Type: BLOOD SPECIMENOrdering Facility: [facility] Address: [place] [address] Performed By: #### 2 4323-8, 32336-8, 1988-02 ####[facility] [facility] [id number] [place] [address] [place] Protein [Mass/Vol] 5.2 g/dL Low 6.3-8.0 [facility] Comment on above: Order Comment: Chaz trevizo Type: BLOOD SPECIMENOrdering Facility: [facility] Address: [address] [place] [id number] Performed By: #### 2 4323-8, 26612-7, 1988-02 ####[facility] [id number] [place] [address] [place] Sodium [Moles/Vol] 138 mmol/L Normal 136-144 [facility] Comment on above: Order Comment: Chaz trevizo Type: BLOOD SPECIMENOrdering Facility: [facility] Address: [place] [address] Performed By: #### 2 4323-8, 57223-5, 1988-02 ####[facility] [id number] [address] [address] [place] Urea nitrogen [Mass/Vol] 44 mg/dL High 9-24 [facility] Comment on above: Order Comment: Speci men Type: BLOOD SPECIMENOrdering Facility: [facility] Address: [address] [place] [address] Performed By: #### 2 4323-8, 44947-4, 1988-02 ####[facility] [id number] [address] [address] [place] ECG COMPLETEon 11-26-2022 ECG COMPLETE Normal [facility] HISTORY PHYSICALon HISTORY PHYSICAL Normal [facility] MEDICAL EMERon 11-26-2022 MEDICAL KALEB Normal [facility] NURSING PROGon 11-26-2022 NURSING PROG Normal [facility] NUTRITIONon 11-26-2022 NUTRITION Normal [facility] PT panel Coag (PPP)on 2022 INR Coag (PPP) [Relative time] 1.2 {INR} Normal 0.9-1.3 [facility] Comment on above: Order Comment: Princessi men Type: BLOOD SPECIMENOrdering Facility: [facility] Address: [address] [place] [address] Result Comment: Bouchra min K Antagonist (VKA) Therapeutic Range: INR 2 to 3 (Target INR of 2.5)Note: For patients treated with VKA drugs, such as warfarin, the [place] [employer] 2012 Guideline recommends [...] al. Chest 2012, 141:7S-47SNishimura RA, et al. [facility] 2017, 70: 252-289 Performed By: #### 3 4528-0 ####[facility] [id number] [place] [address] [place] PT Coag (PPP) [Time] 12.2 s Normal 9.7-13.0 [facility] Comment on above: Order Comment: Speci men Type: BLOOD SPECIMENOrdering Facility: [facility] Address: [address] [place] [address] Performed By: #### 3 4528-0 ####[facility] [id number] [address] [place] Procalcitonin SerPl-mCncon 0 11-26-2022 Procalcitonin [Mass/Vol] 11.48 ng/mL High <0.09 [facility] Comment on above: Order Comment: [facility] Type: BLOOD SPECIMENOrdering Facility: [facility] Address: [address] [place] [address] Result Comment: For a guided interpretation of test results, please visit the Change in Procalcitonin Calculator, [email or web address]. Performed By: #### 2 4323-8, 95232-6, 1987- ####[facility] [id number] [place] [address] [place] SEPSIS LACTATEon 11-26-2022 Lactate [Moles/Vol] 2.4 mmol/L High <=2.0 [facility] Comment on above: Order Comment: Speci men Type: BLOOD SPECIMENOrdering Facility: [facility] Address: [address] [place] [address] Performed By: #### S LACT ####[facility] [id number] [place] [address] [place] STAPH AUREUS PCRon S. aureus and MRSA panel KELLIE+probe (Nose) Normal Negative [facility] Comment on above: Order Comment: Speci men Type: SWAB OF INTERNAL NOSEOrdering Facility: [facility] Address: [address] [place] [address] Result Comment: Nega tive for Staphylococcus aureus by PCR.Negative for MRSA by PCR Performed By: #### S APCR ####[facility] [id number] [place] [address] [place] THERAPY NTon 11-26-2022 THERAPY NT Normal [facility] THERAPY NT Normal [facility] US KIDNEY/BLADDERon 11-26-19 23 US KIDNEY/BLADDER Normal [facility] Urinalysis complete pnl Uron 11-26-2022 Urinalysis complete panel (U) Normal [facility] Comment on above: Order Comment: Speci men Type: URINE SPECIMENOrdering Facility: [facility] Address: [address] [place] [address] Performed By: #### 2 4356-8 ####[facility] [id number] [place] [address] [place] XR CHEST 1V FRONTAL PORTon 0 11-26-2022 XR CHEST 1V FRONTAL PORT Normal [facility] CASE MGT INIT ASSESon 2022 CASE MGT INIT ASSES Normal [facility] CBC panel Auto (Bld)on 11-25 Erythrocyte distribution width (RBC) [Ratio] 17.2 % High 11.5-15.0 [facility] Comment on above: Order Comment: Speci men Type: BLOOD SPECIMENOrdering Facility: [facility] Address: [address] [place], [place] [address] Performed By: #### 5 8410-2 ####[facility] [id number] [address] [place] Hematocrit (Bld) [Volume fraction] 36.9 % Low 39.0-51.0 [facility] Comment on above: Order Comment: Speci men Type: BLOOD SPECIMENOrdering Facility: [facility] Address: [address] Performed By: #### 5 8410-2 ####[facility] [id number] [place] [address] [place] Hemoglobin (Bld) [Mass/Vol] 11.6 g/dL Low 13.0-17.0 [facility] Comment on above: Order Comment: Speci men Type: BLOOD SPECIMENOrdering Facility: [facility] Address: [address] [place], [place] [address] Performed By: #### 5 8410-2 ####[facility] [id number] [place] [address] [place] MCH (RBC) [Entitic mass] 27.8 pg Normal 26.0-34.0 [facility] Comment on above: Order Comment: Speci men Type: BLOOD SPECIMENOrdering Facility: [facility] Address: [address] [place], [place] [address] Performed By: #### 5 8410-2 ####[facility] [id number] [address] [place] MCHC (RBC) [Mass/Vol] 31.4 g/dL Normal 30.5-36.0 [facility] Comment on above: Order Comment: Speci men Type: BLOOD SPECIMENOrdering Facility: [facility] Address: [address] [place], [place] [address] Performed By: #### 5 8410-2 ####[facility] [id number] [address] STATES OF [facility] MCV (RBC) [Entitic vol] 88.3 fL Normal 80.0-100.0 [facility] Comment on above: Order Comment: Speci men Type: BLOOD SPECIMENOrdering Facility: [facility] Address: [address] [place] [address] Performed By: #### 5 8410-2 ####[facility] [id number] [address] [place] Nucleated RBC (Bld) [#/Vol] 10*3/uL Normal <0.01 [facility] Comment on above: Order Comment: Speci men Type: BLOOD SPECIMENOrdering Facility: [facility] Address: [address] [place] [address] Performed By: #### 5 8410-2 ####[facility] [id number] [address] STATES OF [facility] Platelet mean volume (Bld) [Entitic vol] 12.0 fL Normal 9.0-12.7 [facility] Comment on above: Order Comment: Speci men Type: BLOOD SPECIMENOrdering Facility: [facility] Address: [address] [place] [address] Performed By: #### 5 8410-2 ####[facility] [id number] [place] [address] [place] Platelets (Bld) [#/Vol] 96 10*3/uL Low 150-400 [facility] Comment on above: Order Comment: Speci men Type: BLOOD SPECIMENOrdering Facility: [facility] Address: [address] [place], [place] [address] Result Comment: No c lot detected. Performed By: #### 5 8410-2 ####[facility] [id number] [place] [address] [place] RBC (Bld) [#/Vol] 4.18 10*6/uL Low 4.20-6.00 [facility] Comment on above: Order Comment: Speci men Type: BLOOD SPECIMENOrdering Facility: [facility] Address: [address] [place], [place] [address] Performed By: #### 5 8410-2 ####[facility] [id number] [place] [address] [place] WBC (Bld) [#/Vol] 5.31 10*3/uL Normal 3.70-11.00 [facility] Comment on above: Order Comment: Speci men Type: BLOOD SPECIMENOrdering Facility: [facility] Address: [address] [place], [place] [address] Performed By: #### 5 8410-2 ####[facility] [id number] [place] [address] [place] CONSULT PROGon 11-25-2022 CONSULT PROG Normal [facility] CONSULT PROG Normal [facility] Comprehensive metabolic 2000 panelon 11-25-2022 Albumin [Mass/Vol] 3.1 g/dL Low 3.9-4.9 [facility] Comment on above: Order Comment: Speci men Type: BLOOD SPECIMENOrdering Facility: [facility] Address: [address] [place], [place] [address] Performed By: #### 2 4323-8 ####[facility] [id number] [place] [address] [place] ALP [Catalytic activity/Vol] 98 U/L Normal 38-113 [facility] Comment on above: Order Comment: Speci men Type: BLOOD SPECIMENOrdering Facility: [facility] Address: [address] [place], [place] [address] Performed By: #### 2 4323-8 ####[facility] [id number] [place] [address] [place] ALT [Catalytic activity/Vol] U/L Low 10-54 [facility] Comment on above: Order Comment: Speci men Type: BLOOD SPECIMENOrdering Facility: [facility] Address: [address] Result Comment: Resu lt rechecked. Performed By: #### 2 4323-8 ####[facility] [id number] [place] [address] [place] Anion gap [Moles/Vol] 9 mmol/L Normal 9-18 [facility] Comment on above: Order Comment: Speci men Type: BLOOD SPECIMENOrdering Facility: [facility] Address: [address] [place] [address] Performed By: #### 2 4323-8 ####[facility] [id number] [place] [address] [place] AST [Catalytic activity/Vol] 8 U/L Low 14-40 [facility] Comment on above: Order Comment: Speci men Type: BLOOD SPECIMENOrdering Facility: [facility] Address: [address] Performed By: #### 2 4323-8 ####[facility] [id number] [place] [address] [place] Bilirubin [Mass/Vol] 0.4 mg/dL Normal 0.2-1.3 [facility] Comment on above: Order Comment: Speci men Type: BLOOD SPECIMENOrdering Facility: [facility] Address: [address] Performed By: #### 2 4323-8 ####[facility] [id number] [place] [address] [place] Calcium [Mass/Vol] 8.4 mg/dL Low 8.5-10.2 [facility] Comment on above: Order Comment: Speci men Type: BLOOD SPECIMENOrdering Facility: [facility] Address: [address] Performed By: #### 2 4323-8 ####[facility] [id number] [place] [address] [place] Chloride [Moles/Vol] 109 mmol/L High 97-105 [facility] Comment on above: Order Comment: Speci men Type: BLOOD SPECIMENOrdering Facility: [facility] Address: [address] [place] [address] Performed By: #### 2 4323-8 ####[facility] [id number] [place] [address] [place] CO2 [Moles/Vol] 22 mmol/L Normal 22-30 [facility] Comment on above: Order Comment: Speci men Type: BLOOD SPECIMENOrdering Facility: [facility] Address: [address] [place] [address] Performed By: #### 2 4323-8 ####[facility] [id number] [address] [place] Creatinine [Mass/Vol] 1.18 mg/dL Normal 0.73-1.22 [facility] Comment on above: Order Comment: Speci men Type: BLOOD SPECIMENOrdering Facility: [facility] Address: [address] [place] [address] Performed By: #### 2 4323-8 ####[facility] [id number] [address] OF [facility] ESTIMATED GLOMERULAR FILTRATION RATE 69 mL/min/1.73m??? Normal >=60 [facility] Comment on above: Order Comment: Speci men Type: BLOOD SPECIMENOrdering Facility: [facility] Address: [address] [place] [address] Result Comment: Karina mated Glomerular Filtration Rate [...] actual GFR. Performed By: #### 2 4323-8 ####[facility] [id number] [place] [address] [place] Glucose [Mass/Vol] 102 mg/dL High 74-99 [facility] Comment on above: Order Comment: Speci men Type: BLOOD SPECIMENOrdering Facility: [facility] Address: [address] [place] [address] Result Comment: The [place] [employer] (ADA) provides guidance for cutoff [...] Standards of Medical Care in Diabetes 2016, [place] [employer]. Diabetes Care. 2016.39(Suppl 1). Performed By: #### 2 4323-8 ####[facility] [id number] [place] [address] [place] Potassium [Moles/Vol] 4.8 mmol/L Normal 3.7-5.1 [facility] Comment on above: Order Comment: Speci men Type: BLOOD SPECIMENOrdering Facility: [facility] Address: [address] [place] [id number] Performed By: #### 2 4323-8 ####[facility] [id number] [place] [address] [place] Protein [Mass/Vol] 5.5 g/dL Low 6.3-8.0 [facility] Comment on above: Order Comment: Speci men Type: BLOOD SPECIMENOrdering Facility: [facility] Address: [address] [place] [address] Performed By: #### 2 4323-8 ####[facility] [id number] [place] [address] [place] Sodium [Moles/Vol] 140 mmol/L Normal 136-144 [facility] Comment on above: Order Comment: Speci men Type: BLOOD SPECIMENOrdering Facility: [facility] Address: [address] [place] [address] Performed By: #### 2 4323-8 ####[facility] [id number] [place] [address] [place] Urea nitrogen [Mass/Vol] 31 mg/dL High 9-24 [facility] Comment on above: Order Comment: Speci men Type: BLOOD SPECIMENOrdering Facility: [facility] Address: [address] [place] [address] Performed By: #### 2 4323-8 ####[facility] [id number] [place] [address] [place] THERAPY NTon 11-25-2022 THERAPY NT Normal [facility] CBC panel Auto (Bld)on 11-24 Erythrocyte distribution width (RBC) [Ratio] 17.2 % High 11.5-15.0 [facility] Comment on above: Order Comment: Speci men Type: BLOOD SPECIMENOrdering Facility: [facility] Address: [address] [place], [place] [address] Performed By: #### 5 8410-2 ####[facility] [id number] [place] [address] [place] Hematocrit (Bld) [Volume fraction] 37.8 % Low 39.0-51.0 [facility] Comment on above: Order Comment: Speci men Type: BLOOD SPECIMENOrdering Facility: [facility] Address: [address] [place], [place] [address] Performed By: #### 5 8410-2 ####[facility] [id number] [address] [place] Hemoglobin (Bld) [Mass/Vol] 12.1 g/dL Low 13.0-17.0 [facility] Comment on above: Order Comment: Speci men Type: BLOOD SPECIMENOrdering Facility: [facility] Address: [address] [place], [place] [address] Performed By: #### 5 8410-2 ####[facility] [id number] [place] [address] [place] MCH (RBC) [Entitic mass] 28.4 pg Normal 26.0-34.0 [facility] Comment on above: Order Comment: Speci men Type: BLOOD SPECIMENOrdering Facility: [facility] Address: [address] [place], [place] [address] Performed By: #### 5 8410-2 ####[facility] [id number] [address] [place] MCHC (RBC) [Mass/Vol] 32.0 g/dL Normal 30.5-36.0 [facility] Comment on above: Order Comment: Speci men Type: BLOOD SPECIMENOrdering Facility: [facility] Address: [address] [place] [address] Performed By: #### 5 8410-2 ####[facility] [id number] [address] [place] MCV (RBC) [Entitic vol] 88.7 fL Normal 80.0-100.0 [facility] Comment on above: Order Comment: Speci men Type: BLOOD SPECIMENOrdering Facility: [facility] Address: [address] [place] [address] Performed By: #### 5 8410-2 ####[facility] [id number] [place] [address] [place] Nucleated RBC (Bld) [#/Vol] 10*3/uL Normal <0.01 [facility] Comment on above: Order Comment: Speci men Type: BLOOD SPECIMENOrdering Facility: [facility] Address: [address] [place], [place] [address] Performed By: #### 5 8410-2 ####[facility] [id number] [place] [address] [place] Platelet mean volume (Bld) [Entitic vol] 12.2 fL Normal 9.0-12.7 [facility] Comment on above: Order Comment: Speci men Type: BLOOD SPECIMENOrdering Facility: [facility] Address: [address] [place], [place] [address] Performed By: #### 5 8410-2 ####[facility] [id number] [place] [address] [place] Platelets (Bld) [#/Vol] 111 10*3/uL Low 150-400 [facility] Comment on above: Order Comment: Speci men Type: BLOOD SPECIMENOrdering Facility: [facility] Address: [address] [place], [place] [address] Performed By: #### 5 8410-2 ####[facility] [id number] [place] [address] [place] RBC (Bld) [#/Vol] 4.26 10*6/uL Normal 4.20-6.00 [facility] Comment on above: Order Comment: Speci men Type: BLOOD SPECIMENOrdering Facility: [facility] Address: [address] [place], [place] [address] Performed By: #### 5 8410-2 ####[facility] [id number] [place] [address] [place] WBC (Bld) [#/Vol] 4.79 10*3/uL Normal 3.70-11.00 [facility] Comment on above: Order Comment: Speci men Type: BLOOD SPECIMENOrdering Facility: [facility] Address: [address] [place] [address] Performed By: #### 5 8410-2 ####[facility] [id number] [place] [address] [place] CONSULTon 11-24-2022 CONSULT Normal [facility] CONSULT Normal [facility] CONSULT PROGon 11-24-2022 CONSULT PROG Normal [facility] Comprehensive metabolic 2000 panelon 11-24-2022 Albumin [Mass/Vol] 3.3 g/dL Low 3.9-4.9 [facility] Comment on above: Order Comment: Speci men Type: BLOOD SPECIMENOrdering Facility: [facility] Address: [address] [place] [address] Performed By: #### 1 9123-9, 2777-1, 50880-5 ####[facility] [id number] [place] [address] [place] ALP [Catalytic activity/Vol] 91 U/L Normal 38-113 [facility] Comment on above: Order Comment: Speci men Type: BLOOD SPECIMENOrdering Facility: [facility] Address: [address] [place] [address] Performed By: #### 1 9123-9, 2777-1, 10352-2 ####[facility] [id number] [place] [address] [place] ALT [Catalytic activity/Vol] U/L Low 10-54 [facility] Comment on above: Order Comment: Speci men Type: BLOOD SPECIMENOrdering Facility: [facility] Address: [address] [place] [address] Result Comment: Resu lt rechecked. Performed By: #### 1 9123-9, 2777-1, 91591-1 ####[facility] [id number] [place] [address] [place] Anion gap [Moles/Vol] 8 mmol/L Low 9-18 [facility] Comment on above: Order Comment: Speci men Type: BLOOD SPECIMENOrdering Facility: [facility] Address: [address] [place] [address] Performed By: #### 1 9123-9, 2777-1, 21936-8 ####[facility] [id number] [place] [address] [place] AST [Catalytic activity/Vol] 9 U/L Low 14-40 [facility] Comment on above: Order Comment: Speci men Type: BLOOD SPECIMENOrdering Facility: [facility] Address: [address] [place] [address] Performed By: #### 1 9123-9, 2777-1, 24039-8 ####[facility] [id number] [place] [address] [place] Bilirubin [Mass/Vol] 0.2 mg/dL Normal 0.2-1.3 [facility] Comment on above: Order Comment: Speci men Type: BLOOD SPECIMENOrdering Facility: [facility] Address: [address] [place] [address] Performed By: #### 1 9123-9, 2777-1, 91598-9 ####[facility] [id number] [place] [address] [place] Calcium [Mass/Vol] 8.3 mg/dL Low 8.5-10.2 [facility] Comment on above: Order Comment: Speci men Type: BLOOD SPECIMENOrdering Facility: [facility] Address: [address] [place] [address] Performed By: #### 1 9123-9, 2777-1, 17356-8 ####[facility] [id number] [place] [address] [place] Chloride [Moles/Vol] 110 mmol/L High 97-105 [facility] Comment on above: Order Comment: Speci men Type: BLOOD SPECIMENOrdering Facility: [facility] Address: [address] [place], [place] [address] Performed By: #### 1 9123-9, 2777-1, 14619-5 ####[facility] [id number] [address] [place] CO2 [Moles/Vol] 24 mmol/L Normal 22-30 [facility] Comment on above: Order Comment: Speci men Type: BLOOD SPECIMENOrdering Facility: [facility] Address: [address] [place] [address] Performed By: #### 1 9123-9, 2777, 27092-7 ####[facility] [id number] [address] [place] Creatinine [Mass/Vol] 0.94 mg/dL Normal 0.73-1.22 [facility] Comment on above: Order Comment: Speci men Type: BLOOD SPECIMENOrdering Facility: [facility] Address: [address] [place] [address] Performed By: #### 1 9123-9, 2777, 74800-0 ####[facility] [id number] [place] [address] [place] ESTIMATED GLOMERULAR FILTRATION RATE 91 mL/min/1.73m??? Normal >=60 [facility] Comment on above: Order Comment: Speci men Type: BLOOD SPECIMENOrdering Facility: [facility] Address: [address] [place] [address] Result Comment: Karina mated Glomerular Filtration Rate [...] GFR. Performed By: #### 1 9123-9, 2777, ####[facility] [id number] [place] [id number] [place] Glucose [Mass/Vol] 68 mg/dL Low 74-99 [facility] Comment on above: Order Comment: Speci men Type: BLOOD SPECIMENOrdering Facility: [facility] Address: [address] [address] Result Comment: The [place] [employer] (ADA) provides guidance for cutoff [...] Standards of Medical Care in Diabetes 2016, [place] [employer]. Diabetes Care. 2016.39(Suppl 1). Performed By: #### 1 9123-9, 2776-10, ####[facility] [id number] [place] [address] [place] Potassium [Moles/Vol] 4.1 mmol/L Normal 3.7-5.1 [facility] Comment on above: Order Comment: Speci men Type: BLOOD SPECIMENOrdering Facility: [facility] Address: [address] [place] [address] Performed By: #### 1 9123-9, 27704-18, ####[facility] LABCLIA [id number] [address] [address] [place] Protein [Mass/Vol] 5.7 g/dL Low 6.3-8.0 [facility] Comment on above: Order Comment: Speci men Type: BLOOD SPECIMENOrdering Facility: [facility] Address: [address] [address] Performed By: #### 1 9123-9, 2777-, 35251-3 ####[facility] LABCLIA [id number] [place] [address] [place] Sodium [Moles/Vol] 142 mmol/L Normal 136-144 [facility] Comment on above: Order Comment: Speci men Type: BLOOD SPECIMENOrdering Facility: [facility] Address: [address] [place] [address] Performed By: #### 1 9123-9, 277-, 76490-8 ####[facility] LABCLIA [id number] [place] [address] [place] Urea nitrogen [Mass/Vol] 22 mg/dL Normal 9-24 [facility] Comment on above: Order Comment: Speci men Type: BLOOD SPECIMENOrdering Facility: [facility] Address: [address] [place] [address] Performed By: #### 1 9123-9, 2777-, 72791-3 ####[facility] LABCLIA [id number] [place] [address] [place] Magnesium SerPl-mCncon 11-24 Magnesium [Mass/Vol] 2.2 mg/dL Normal 1.7-2.3 [facility] Comment on above: Order Comment: Speci men Type: BLOOD SPECIMENOrdering Facility: [facility] Address: [address] [place], [place] [address] Performed By: #### 1 9123-9, 2777-, 53326-8 ####[facility] LABCLIA [id number] [place] [address] [place] Phosphate SerPl-mCncon 11-24 Phosphate [Mass/Vol] 3.3 mg/dL Normal 2.7-4.8 [facility] Comment on above: Order Comment: Speci men Type: BLOOD SPECIMENOrdering Facility: [facility] Address: [address] [place] [address] Performed By: #### 1 9123-9, 2777-1, 69705-1 ####[facility] LABCLIA [id number] [place] [address] [place] CBC panel Auto (Bld)on 11-23 Erythrocyte distribution width (RBC) [Ratio] 16.8 % High 11.5-15.0 [facility] Comment on above: Order Comment: Speci men Type: BLOOD SPECIMENOrdering Facility: [facility] Address: [address] [place] [address] Performed By: #### 5 8410-2 ####[facility] LABIA [id number] [address] STATES OF [facility] Hematocrit (Bld) [Volume fraction] 35.7 % Low 39.0-51.0 [facility] Comment on above: Order Comment: Speci men Type: BLOOD SPECIMENOrdering Facility: [facility] Address: [address] [place] [address] Performed By: #### 5 8410-2 ####[facility] LABCLIA [id number] [place] [address] [place] Hemoglobin (Bld) [Mass/Vol] 11.3 g/dL Low 13.0-17.0 [facility] Comment on above: Order Comment: Speci men Type: BLOOD SPECIMENOrdering Facility: [facility] Address: [address] [place] [address] Performed By: #### 5 8410-2 ####[facility] LABCLIA [id number] [place] [address] [place] MCH (RBC) [Entitic mass] 27.9 pg Normal 26.0-34.0 [facility] Comment on above: Order Comment: Speci men Type: BLOOD SPECIMENOrdering Facility: [facility] Address: [address] Performed By: #### 5 8410-2 ####[facility] [id number] [address] [place] MCHC (RBC) [Mass/Vol] 31.7 g/dL Normal 30.5-36.0 [facility] Comment on above: Order Comment: Speci men Type: BLOOD SPECIMENOrdering Facility: [facility] Address: [address] [address] Performed By: #### 5 8410-2 ####[facility] [id number] [place] [address] [place] MCV (RBC) [Entitic vol] 88.1 fL Normal 80.0-100.0 [facility] Comment on above: Order Comment: Speci men Type: BLOOD SPECIMENOrdering Facility: [facility] Address: [address] Performed By: #### 5 8410-2 ####[facility] [id number] [place] [address] [place] Nucleated RBC (Bld) [#/Vol] 10*3/uL Normal <0.01 [facility] Comment on above: Order Comment: Speci men Type: BLOOD SPECIMENOrdering Facility: [facility] Address: [address] Performed By: #### 5 8410-2 ####[facility] [id number] [place] [address] [place] Platelet mean volume (Bld) [Entitic vol] 12.7 fL Normal 9.0-12.7 [facility] Comment on above: Order Comment: Speci men Type: BLOOD SPECIMENOrdering Facility: [facility] Address: [address] [place], [place] [address] Performed By: #### 5 8410-2 ####[facility] LABCLIA [id number] [place] [address] [place] Platelets (Bld) [#/Vol] 106 10*3/uL Low 150-400 [facility] Comment on above: Order Comment: Speci men Type: BLOOD SPECIMENOrdering Facility: [facility] Address: [address] [place] [address] Performed By: #### 5 8410-2 ####[facility] LABCLIA [id number] [place] [address] [place] RBC (Bld) [#/Vol] 4.05 10*6/uL Low 4.20-6.00 [facility] Comment on above: Order Comment: Speci men Type: BLOOD SPECIMENOrdering Facility: [facility] Address: [address] [place] [address] Performed By: #### 5 8410-2 ####[facility] LABCLIA [id number] [place] [address] [place] WBC (Bld) [#/Vol] 2.81 10*3/uL Low 3.70-11.00 [facility] Comment on above: Order Comment: Speci men Type: BLOOD SPECIMENOrdering Facility: [facility] Address: [address] [place] [address] Performed By: #### 5 8410-2 ####[facility] LABCLIA [id number] [place] [address] [place] Comprehensive metabolic 2000 panelon 11-23-2022 Albumin [Mass/Vol] 3.2 g/dL Low 3.9-4.9 [facility] Comment on above: Order Comment: Speci men Type: BLOOD SPECIMENOrdering Facility: [facility] Address: [address] [place] [address] Performed By: #### 1 9123-9, 2777-1, 72167-1 ####[facility] LABCLIA [id number] [place] [address] [place] ALP [Catalytic activity/Vol] 84 U/L Normal 38-113 [facility] Comment on above: Order Comment: Speci men Type: BLOOD SPECIMENOrdering Facility: [facility] Address: [address] [place] [address] Performed By: #### 1 9123-9, 2777-, 81556-6 ####[facility] LABCLIA [id number] [place] [address] [place] ALT [Catalytic activity/Vol] U/L Low 10-54 [facility] Comment on above: Order Comment: Speci men Type: BLOOD SPECIMENOrdering Facility: [facility] Address: [address] [place] [address] Performed By: #### 1 9123-9, 27704-18, 96161-5 ####[facility] LABCLIA [id number] [place] [address] [place] Anion gap [Moles/Vol] 10 mmol/L Normal 9-18 [facility] Comment on above: Order Comment: Speci men Type: BLOOD SPECIMENOrdering Facility: [facility] Address: [address] [place], [place] [address] Performed By: #### 1 9123-9, 27704-18, 31728-0 ####[facility] LABCLIA [id number] [address] [place] AST [Catalytic activity/Vol] 13 U/L Low 14-40 [facility] Comment on above: Order Comment: Speci men Type: BLOOD SPECIMENOrdering Facility: [facility] Address: [address] [place], [place] [address] Performed By: #### 1 9123-9, 2777-, 42205-5 ####[facility] LABCLIA [id number] [place] [address] [place] Bilirubin [Mass/Vol] 0.2 mg/dL Normal 0.2-1.3 [facility] Comment on above: Order Comment: Speci men Type: BLOOD SPECIMENOrdering Facility: [facility] Address: [address] [place] [address] Performed By: #### 1 9123-9, 1, 63272-5 ####[facility] LABCLIA [id number] [place] [address] [place] Calcium [Mass/Vol] 8.3 mg/dL Low 8.5-10.2 [facility] Comment on above: Order Comment: Speci men Type: BLOOD SPECIMENOrdering Facility: [facility] Address: [address] [place] [address] Performed By: #### 1 9123-9, 2776-10, 63935-4 ####[facility] LABCLIA [id number] [place] [address] [place] Chloride [Moles/Vol] 112 mmol/L High 97-105 [facility] Comment on above: Order Comment: Speci men Type: BLOOD SPECIMENOrdering Facility: [facility] Address: [address] [place] [address] Performed By: #### 1 9123-9, 2776-10, 03349-5 ####[facility] LABCLIA [id number] [place] [address] [place] CO2 [Moles/Vol] 21 mmol/L Low 22-30 [facility] Comment on above: Order Comment: Speci men Type: BLOOD SPECIMENOrdering Facility: [facility] Address: [address] [place], [place] [address] Performed By: #### 1 9123-9, 2776-10, 01828-4 ####[facility] LABCLIA [id number] [place] [address] [place] Creatinine [Mass/Vol] 0.84 mg/dL Normal 0.73-1.22 [facility] Comment on above: Order Comment: Chaz trevizo Type: BLOOD SPECIMENOrdering Facility: [facility] Address: [address] [id number] Performed By: #### 1 9123-9, 2777-1, 82421-1 ####[facility] LABCLIA [id number] [place] [address] [place] ESTIMATED GLOMERULAR FILTRATION RATE 97 mL/min/1.73m??? Normal >=60 [facility] Comment on above: Order Comment: Chaz trevizo Type: BLOOD SPECIMENOrdering Facility: [facility] Address: [address] [address] Result Comment: Karina mated Glomerular Filtration Rate [...] GFR. Performed By: #### 1 9123-9, 2777-, 06528-4 ####[facility] LABCLIA [id number] [place] [address] [place] Glucose [Mass/Vol] 102 mg/dL High 74-99 [facility] Comment on above: Order Comment: Chaz trevizo Type: BLOOD SPECIMENOrdering Facility: [facility] Address: [place] [address] Result Comment: The [place] [employer] (ADA) provides guidance for cutoff [...] Standards of Medical Care in Diabetes 2016, [place] [employer]. Diabetes Care. 2016.39(Suppl 1). Performed By: #### 1 9123-9, 2776-10, ####[facility] LABCLIA [id number] [address] [address] [place] Potassium [Moles/Vol] 4.3 mmol/L Normal 3.7-5.1 [facility] Comment on above: Order Comment: Speci men Type: BLOOD SPECIMENOrdering Facility: [facility] Address: [address] [id number] Performed By: #### 1 9123-9, 27704-18, ####[facility] LABCLIA [id number] [address] [address] [place] Protein [Mass/Vol] 5.3 g/dL Low 6.3-8.0 [facility] Comment on above: Order Comment: Speci men Type: BLOOD SPECIMENOrdering Facility: [facility] Address: [address] [id number] Performed By: #### 1 9123-9, 2776-10, ####[facility] LABIA [id number] [address] [address] [place] Sodium [Moles/Vol] 143 mmol/L Normal 136-144 [facility] Comment on above: Order Comment: Speci men Type: BLOOD SPECIMENOrdering Facility: [facility] Address: [address] [place] [address] Performed By: #### 1 9123-9, 2776-10, ####[facility] LABCLIA [id number] [address] [address] [place] Urea nitrogen [Mass/Vol] 21 mg/dL Normal 9-24 [facility] Comment on above: Order Comment: Speci men Type: BLOOD SPECIMENOrdering Facility: [facility] Address: [address] Performed By: #### 1 9123-9, 2777-, 12258-0 ####[facility] LABCLIA [id number] [place] [address] [place] Magnesium SerPl-ncon 11-23 Magnesium [Mass/Vol] 2.0 mg/dL Normal 1.7-2.3 [facility] Comment on above: Order Comment: Speci men Type: BLOOD SPECIMENOrdering Facility: [facility] Address: [address] [place] [address] Performed By: #### 1 9123-9, 2777, ####[facility] LABCLIA [id number] [place] [address] [place] Phosphate SerPl-mCncon 11-23 Phosphate [Mass/Vol] 2.8 mg/dL Normal 2.7-4.8 [facility] Comment on above: Order Comment: Speci men Type: BLOOD SPECIMENOrdering Facility: [facility] Address: [address] [place] [address] Performed By: #### 1 9123-9, 2777, ####[facility] LABIA [id number] [place] [address] [place] THERAPY NTon 11-23-2022 THERAPY NT Normal [facility] CBC panel Auto (Bld)on 11-22 Erythrocyte distribution width (RBC) [Ratio] 16.4 % High 11.5-15.0 [facility] Comment on above: Order Comment: Speci men Type: BLOOD SPECIMENOrdering Facility: [facility] Address: [address] [place] [address] Performed By: #### 5 8410-2 ####[facility] LABCLIA [id number] [address] [address] [id number] [address] [place] Hematocrit (Bld) [Volume fraction] 36.4 % Low 39.0-51.0 [facility] Comment on above: Order Comment: Speci men Type: BLOOD SPECIMENOrdering Facility: [facility] Address: [address] [place] [address] Performed By: #### 5 8410-2 ####[facility] LABCLIA [id number] [address] [place] Hemoglobin (Bld) [Mass/Vol] 11.6 g/dL Low 13.0-17.0 [facility] Comment on above: Order Comment: Speci men Type: BLOOD SPECIMENOrdering Facility: [facility] Address: [address] [place] [address] Performed By: #### 5 8410-2 ####[facility] LABIA [id number] [address] OF [facility] MCH (RBC) [Entitic mass] 28.2 pg Normal 26.0-34.0 [facility] Comment on above: Order Comment: Speci men Type: BLOOD SPECIMENOrdering Facility: [facility] Address: [address] [place] [address] Performed By: #### 5 8410-2 ####[facility] LABIA [id number] [address] [place] MCHC (RBC) [Mass/Vol] 31.9 g/dL Normal 30.5-36.0 [facility] Comment on above: Order Comment: Speci men Type: BLOOD SPECIMENOrdering Facility: [facility] Address: [address] [place], [place] [address] Performed By: #### 5 8410-2 ####[facility] LABIA [id number] [address] [place] MCV (RBC) [Entitic vol] 88.6 fL Normal 80.0-100.0 [facility] Comment on above: Order Comment: Speci men Type: BLOOD SPECIMENOrdering Facility: [facility] Address: [address] Performed By: #### 5 8410-2 ####[facility] LABIA [id number] [place] [address] [place] Nucleated RBC (Bld) [#/Vol] 10*3/uL Normal <0.01 [facility] Comment on above: Order Comment: Speci men Type: BLOOD SPECIMENOrdering Facility: [facility] Address: [address] Performed By: #### 5 8410-2 ####[facility] LABIA [id number] [place] [address] [place] Platelet mean volume (Bld) [Entitic vol] 12.5 fL Normal 9.0-12.7 [facility] Comment on above: Order Comment: Speci men Type: BLOOD SPECIMENOrdering Facility: [facility] Address: [address] Performed By: #### 5 8410-2 ####[facility] LABIA [id number] [place] [address] [place] Platelets (Bld) [#/Vol] 115 10*3/uL Low 150-400 [facility] Comment on above: Order Comment: Speci men Type: BLOOD SPECIMENOrdering Facility: [facility] Address: [address] [place] [address] Performed By: #### 5 8410-2 ####[facility] LABIA [id number] [place] [address] [place] RBC (Bld) [#/Vol] 4.11 10*6/uL Low 4.20-6.00 [facility] Comment on above: Order Comment: Speci men Type: BLOOD SPECIMENOrdering Facility: [facility] Address: [address] [place] [address] Performed By: #### 5 8410-2 ####[facility] LABCLIA [id number] [place] [address] [place] WBC (Bld) [#/Vol] 2.29 10*3/uL Low 3.70-11.00 [facility] Comment on above: Order Comment: Speci men Type: BLOOD SPECIMENOrdering Facility: [facility] Address: [address] [place] [address] Performed By: #### 5 8410-2 ####[facility] LABIA [id number] [place] [address] [place] CK SerPl-cCncon 11-22-2022 CK [Catalytic activity/Vol] 27 U/L Low 51-298 [facility] Comment on above: Order Comment: Speci men Type: BLOOD SPECIMENOrdering Facility: [facility] Address: [address] [place] [address] Performed By: #### 1 9123-9, 66775-6, 2157-6, 2777-1 ####[facility] LABIA [id number] [place] [address] [place] Comprehensive metabolic 2000 panelon 11-22-2022 Albumin [Mass/Vol] 3.4 g/dL Low 3.9-4.9 [facility] Comment on above: Order Comment: Speci men Type: BLOOD SPECIMENOrdering Facility: [facility] Address: [address] [place], [place] [address] Performed By: #### 1 9123-9, 74981-5, 2157-6, 2777-1 ####[facility] LABIA [id number] [place] [address] [place] ALP [Catalytic activity/Vol] 79 U/L Normal 38-113 [facility] Comment on above: Order Comment: Speci men Type: BLOOD SPECIMENOrdering Facility: [facility] Address: [address] [place], [place] [address] Performed By: #### 1 9123-9, 22874-2, 7-6, 2777- ####[facility] LABCLIA [id number] [address] [place] ALT [Catalytic activity/Vol] U/L Low 10-54 [facility] Comment on above: Order Comment: Speci men Type: BLOOD SPECIMENOrdering Facility: [facility] Address: [address] [place] [address] Result Comment: Resu lt rechecked. Performed By: #### 1 9123-9, 12941-5, 2156-6, 277- ####[facility] LABIA [id number] [place] [address] [place] Anion gap [Moles/Vol] 10 mmol/L Normal 9-18 [facility] Comment on above: Order Comment: Speci men Type: BLOOD SPECIMENOrdering Facility: [facility] Address: [address] [place] [address] Performed By: #### 1 9123-9, 80507-6, 2156-6, 277- ####[facility] LABIA [id number] [address] [place] AST [Catalytic activity/Vol] 11 U/L Low 14-40 [facility] Comment on above: Order Comment: Speci men Type: BLOOD SPECIMENOrdering Facility: [facility] Address: [address] [place] [address] Performed By: #### 1 9123-9, 85131-1, 2156-6, 2777- ####[facility] LABIA [id number] [place] [address] [place] Bilirubin [Mass/Vol] mg/dL Low 0.2-1.3 [facility] Comment on above: Order Comment: Speci men Type: BLOOD SPECIMENOrdering Facility: [facility] Address: [address] [place] [address] Performed By: #### 1 9123-9, 89656-3, 2156-6, 7- ####[facility] LABCLIA [id number] [place] [address] [place] Calcium [Mass/Vol] 8.7 mg/dL Normal 8.5-10.2 [facility] Comment on above: Order Comment: Speci men Type: BLOOD SPECIMENOrdering Facility: [facility] Address: [address] [place] [address] Performed By: #### 1 9123-9, 74297-7, 2156-6, 2776- ####[facility] LABIA [id number] [place] [address] [place] Chloride [Moles/Vol] 109 mmol/L High 97-105 [facility] Comment on above: Order Comment: Speci men Type: BLOOD SPECIMENOrdering Facility: [facility] Address: [address] [place] [address] Performed By: #### 1 9123-9, 73205-1, 6, 2776- ####[facility] LABIA [id number] [place] [address] [place] CO2 [Moles/Vol] 23 mmol/L Normal 22-30 [facility] Comment on above: Order Comment: Speci men Type: BLOOD SPECIMENOrdering Facility: [facility] Address: [address] [place], [place] [address] Performed By: #### 1 9123-9, 21219-1, 6, 277- ####[facility] LABIA [id number] [place] [address] [place] Creatinine [Mass/Vol] 0.95 mg/dL Normal 0.73-1.22 [facility] Comment on above: Order Comment: Speci men Type: BLOOD SPECIMENOrdering Facility: [facility] Address: [address] [place], [place] [address] Performed By: #### 1 9123-9, 26169-3, 2156-6, 2777-1 ####[facility] LABIA [id number] [place] [id number] [place] ESTIMATED GLOMERULAR FILTRATION RATE 89 mL/min/1.73m??? Normal >=60 [facility] Comment on above: Order Comment: Chaz trevizo Type: BLOOD SPECIMENOrdering Facility: [facility] Address: [address] Result Comment: Karina mated Glomerular Filtration [...] actual GFR. Performed By: #### 1 9123-9, 99409-4, 2157-03, 2777- ####[facility] LABIA [id number] [place] [address] [place] Glucose [Mass/Vol] 101 mg/dL High 74-99 [facility] Comment on above: Order Comment: Chaz trevizo Type: BLOOD SPECIMENOrdering Facility: [facility] Address: [address] [place] [address] Result Comment: The [place] [employer] (ADA) provides guidance for cutoff [...] Standards of Medical Care in Diabetes 2016, [place] [employer]. Diabetes Care. 2016.39(Suppl 1). Performed By: #### 1 9123-9, 10163-6, 6, 2776- ####[facility] LABCLIA [id number] [place] [address] [place] Potassium [Moles/Vol] 3.9 mmol/L Normal 3.7-5.1 [facility] Comment on above: Order Comment: Speci men Type: BLOOD SPECIMENOrdering Facility: [facility] Address: [address] [place] [address] Performed By: #### 1 9123-9, 28367-1, 2157-03, 2776-10 ####[facility] LABIA [id number] [place] [address] [place] Protein [Mass/Vol] 5.4 g/dL Low 6.3-8.0 [facility] Comment on above: Order Comment: Speci men Type: BLOOD SPECIMENOrdering Facility: [facility] Address: [address] [place] [address] Performed By: #### 1 9123-9, 35532-2, 2157-03, 2776-10 ####[facility] LABIA [id number] [place] [address] [place] Sodium [Moles/Vol] 142 mmol/L Normal 136-144 [facility] Comment on above: Order Comment: Speci men Type: BLOOD SPECIMENOrdering Facility: [facility] Address: [address] Performed By: #### 1 9123-9, 46439-0, 2157-03, 2776- ####[facility] [id number] [place] [address] [place] Urea nitrogen [Mass/Vol] 19 mg/dL Normal 9-24 [facility] Comment on above: Order Comment: Speci men Type: BLOOD SPECIMENOrdering Facility: [facility] Address: [address] Performed By: #### 1 9123-9, 76100-4, 7-6, 2777-1 ####[facility] LABCL[facility] [id number] [address] STATES OF [facility] Magnesium SerPl-mCncon 11-22 Magnesium [Mass/Vol] 2.2 mg/dL Normal 1.7-2.3 [facility] Comment on above: Order Comment: Speci men Type: BLOOD SPECIMENOrdering Facility: [facility] Address: [address] [place] [address] Performed By: #### 1 9123-9, 80463-6, 2157-03, 7- ####[facility]CL[facility] [id number] [address] OF [facility] PT panel Coag (PPP)on 2022 INR Coag (PPP) [Relative time] 1.0 {INR} Normal 0.9-1.3 [facility] Comment on above: Order Comment: Speci joseline Type: BLOOD SPECIMENOrdering Facility: [facility] Address: [address] [place] [address] Result Comment: Bouchra min K Antagonist (VKA) Therapeutic Range: INR 2 to 3 (Target INR of 2.5)Note: For patients treated with VKA drugs, such as warfarin, the [place] [employer] 2012 Guideline recommends [...] al. Chest 2012, 141:7S-47SNishmercy RA, et al. JAC 2017, 70: 252-289 Performed By: #### 3 4528-0 ####[facility]IA [id number] [address] [place] PT Coag (PPP) [Time] 10.1 s Normal 9.7-13.0 [facility] Comment on above: Order Comment: Speci men Type: BLOOD SPECIMENOrdering Facility: [facility] Address: [address] [place] [address] Performed By: #### 3 4528-0 ####[facility] [id number] [address] Phosphate SerPl-ncon 11-22 Phosphate [Mass/Vol] 3.5 mg/dL Normal 2.7-4.8 [facility] Comment on above: Order Comment: Speci men Type: BLOOD SPECIMENOrdering Facility: [facility] Address: [address] [place] [address] Performed By: #### 1 9123-9, 60341-8, 2157-6, 2777-1 ####[facility] [id number] [address] THERAPY NTon 11-22-2022 THERAPY NT Normal [facility] ALLIED HEALTHon 11-21-2022 ALLIED HEALTH Normal [facility] ALLIED HEALTH Normal [facility] CONSULTon 11-21-2022 CONSULT Normal [facility] CONSULT PROGon 11-21-2022 CONSULT PROG Normal [facility] NUTRITIONon 11-21-2022 NUTRITION Normal [facility] THERAPY NTon 11-21-2022 THERAPY NT Normal [facility] 25(OH)D3 SerPl-mCncon 2022 25-hydroxyvitamin D3 [Mass/Vol] 15.0 ng/mL Low 31.0-80.0 [facility] Comment on above: Order Comment: Speci men Type: BLOOD SPECIMENOrdering Facility: [facility] Address: [address] [place] [address] Result Comment: Clas sification of 25 OH Vitamin D status:Deficiency/Insufficiency: < or = 30 ng/ml.Sufficiency/Optimal Levels: 31-80 ng/mLToxicity: > 100 ng/mL.Test performed by chemiluminescent immunoassay. Performed By: #### 1 989-3 ####[facility] LABCLIA [id number] [place] [address] [place] CBC W Auto Differential pane l (Bld)on 11-20-2022 Basophils (Bld) [#/Vol] 10*3/uL Normal <0.11 [facility] Comment on above: Order Comment: Speci men Type: BLOOD SPECIMENOrdering Facility: [facility] Address: [address] [place] [address] Performed By: #### 5 8410-2, 63027-6, 31933-0 ####[facility]CL[facility] [id number] [place] [address] [place] Basophils/100 WBC (Bld) 0.2 % Normal [facility] Comment on above: Order Comment: Speci men Type: BLOOD SPECIMENOrdering Facility: [facility] Address: [address] [place] [address] Performed By: #### 5 8410-2, 66787-8, 92843-9 ####[facility]CLIA [id number] [place] [address] [place] Eosinophils (Bld) [#/Vol] 0.08 10*3/uL Normal <0.46 [facility] Comment on above: Order Comment: Speci men Type: BLOOD SPECIMENOrdering Facility: [facility] Address: [address] [place] [address] Performed By: #### 5 8410-2, 21423-9, 99129-0 ####[facility]CL[facility] [id number] [place] [address] [place] Eosinophils/100 WBC (Bld) 1.8 % Normal [facility] Comment on above: Order Comment: Speci men Type: BLOOD SPECIMENOrdering Facility: [facility] Address: [address] [place], [place] [address] Performed By: #### 5 8410-2, 97416-2, 65933-2 ####[facility]CLIA [id number] [place] [address] [place] Immature granulocytes (Bld) [#/Vol] 0.03 10*3/uL Normal <0.10 [facility] Comment on above: Order Comment: Speci men Type: BLOOD SPECIMENOrdering Facility: [facility] Address: [address] [place] [address] Performed By: #### 5 8410-2, 30071-6, 16591-9 ####[facility] [id number] [address] [place] Immature granulocytes/100 WBC (Bld) 0.7 % Normal [facility] Comment on above: Order Comment: Speci men Type: BLOOD SPECIMENOrdering Facility: [facility] Address: [address] [place] [address] Performed By: #### 5 8410-2, 99049-5, 11626-2 ####[facility]CL[facility] [id number] [place] [address] [place] Lymphocytes (Bld) [#/Vol] 0.74 10*3/uL Low 1.00-4.00 [facility] Comment on above: Order Comment: Speci men Type: BLOOD SPECIMENOrdering Facility: [facility] Address: [address] [place], [place] [address] Performed By: #### 5 8410-2, 22390-6, 42818-1 ####[facility]CL[facility] [id number] [place] [address] [place] Lymphocytes/100 WBC (Bld) 16.4 % Normal [facility] Comment on above: Order Comment: Speci men Type: BLOOD SPECIMENOrdering Facility: [facility] Address: [address] [place], [place] [address] Performed By: #### 5 8410-2, 38306-7, 62795-6 ####[facility]CL[facility] [id number] [place] [address] [place] Monocytes (Bld) [#/Vol] 0.53 10*3/uL Normal <0.87 [facility] Comment on above: Order Comment: Speci men Type: BLOOD SPECIMENOrdering Facility: [facility] Address: [address] [place] [address] Performed By: #### 5 8410-2, 16477-1, 79138-1 ####[facility] [id number] [place] [address] [place] Monocytes/100 WBC (Bld) 11.8 % Normal [facility] Comment on above: Order Comment: Speci men Type: BLOOD SPECIMENOrdering Facility: [facility] Address: [address] [place], [place] [address] Performed By: #### 5 8410-2, 66536-6, 89207-8 ####[facility] [id number] [place] [address] [place] Neutrophils (Bld) [#/Vol] 3.11 10*3/uL Normal 1.45-7.50 [facility] Comment on above: Order Comment: Speci men Type: BLOOD SPECIMENOrdering Facility: [facility] Address: [address] Performed By: #### 5 8410-2, 45783-6, 34154-7 ####[facility]CL[facility] [id number] [place] [address] [place] Neutrophils/100 WBC (Bld) 69.1 % Normal [facility] Comment on above: Order Comment: Speci men Type: BLOOD SPECIMENOrdering Facility: [facility] Address: [address] Performed By: #### 5 8410-2, 26182-7, 39436-5 ####[facility]CL[facility] [id number] [place] [address] [place] CBC panel Auto (Bld)on 11-20 Erythrocyte distribution width (RBC) [Ratio] 15.9 % High 11.5-15.0 [facility] Comment on above: Order Comment: Speci men Type: BLOOD SPECIMENOrdering Facility: [facility] Address: [address] [place] [address] Performed By: #### 5 8410-2, 93948-6, 23842-2 ####[facility] [id number] [address] [place] Hematocrit (Bld) [Volume fraction] 39.8 % Normal 39.0-51.0 [facility] Comment on above: Order Comment: Speci men Type: BLOOD SPECIMENOrdering Facility: [facility] Address: [address] [place] [address] Performed By: #### 5 8410-2, 09243-8, 85457-0 ####[facility]CL[facility] [id number] [place] [address] [place] Hemoglobin (Bld) [Mass/Vol] 12.5 g/dL Low 13.0-17.0 [facility] Comment on above: Order Comment: Speci men Type: BLOOD SPECIMENOrdering Facility: [facility] Address: [address] [place], [place] [address] Performed By: #### 5 8410-2, 45528-6, 23217-8 ####[facility]CL[facility] [id number] [place] [address] [place] MCH (RBC) [Entitic mass] 27.9 pg Normal 26.0-34.0 [facility] Comment on above: Order Comment: Speci men Type: BLOOD SPECIMENOrdering Facility: [facility] Address: [address] Performed By: #### 5 8410-2, 48238-3, 50639-8 ####[facility] [id number] [address] [place] MCHC (RBC) [Mass/Vol] 31.4 g/dL Normal 30.5-36.0 [facility] Comment on above: Order Comment: Speci men Type: BLOOD SPECIMENOrdering Facility: [facility] Address: [address] [place], [place] [address] Performed By: #### 5 8410-2, 53933-6, 58709-4 ####[facility] [id number] [place] [address] [place] MCV (RBC) [Entitic vol] 88.8 fL Normal 80.0-100.0 [facility] Comment on above: Order Comment: Speci men Type: BLOOD SPECIMENOrdering Facility: [facility] Address: [address] [place], [place] [address] Performed By: #### 5 8410-2, 95664-7, 58372-1 ####[facility] [id number] [place] [address] [place] Nucleated RBC (Bld) [#/Vol] 10*3/uL Normal <0.01 [facility] Comment on above: Order Comment: Speci men Type: BLOOD SPECIMENOrdering Facility: [facility] Address: [address] [place], [place] [address] Performed By: #### 5 8410-2, 96818-5, 58049-0 ####[facility] [id number] [place] [address] [place] Platelet mean volume (Bld) [Entitic vol] 11.8 fL Normal 9.0-12.7 [facility] Comment on above: Order Comment: Speci men Type: BLOOD SPECIMENOrdering Facility: [facility] Address: [address] [place], [place] [address] Performed By: #### 5 8410-2, 35259-4, 21753-2 ####[facility]CL[facility] [id number] [place] [address] [place] Platelets (Bld) [#/Vol] 138 10*3/uL Low 150-400 [facility] Comment on above: Order Comment: Speci men Type: BLOOD SPECIMENOrdering Facility: [facility] Address: [address] [place], [place] [address] Result Comment: No c lot detected.Results checked and verified. Performed By: #### 5 8410-2, 85231-7, 75301-0 ####[facility]CL[facility] [id number] [place] [address] [place] RBC (Bld) [#/Vol] 4.48 10*6/uL Normal 4.20-6.00 [facility] Comment on above: Order Comment: Speci men Type: BLOOD SPECIMENOrdering Facility: [facility] Address: [address] [place], [place] [address] Performed By: #### 5 8410-2, 95566-1, 55956-7 ####[facility]CL[facility] [id number] [place] [address] [place] WBC (Bld) [#/Vol] 4.53 10*3/uL Normal 3.70-11.00 [facility] Comment on above: Order Comment: Speci men Type: BLOOD SPECIMENOrdering Facility: [facility] Address: [address] [place], [place] [address] Performed By: #### 5 8410-2, 35139-6, 47315-9 ####[facility]CL[facility] [id number] [place] [address] [place] CONSULTon 11-20-2022 CONSULT Normal [facility] Calcium.ionized [Moles/Vol]o n 11-20-2022 Calcium.ionized (Bld) [Mass/Vol] 1.27 mmol/L Normal 1.08-1.30 [facility] Comment on above: Order Comment: Speci men Type: BLOOD SPECIMENOrdering Facility: [facility] Address: [address] [place] [address] Performed By: #### 1 995-0 ####[facility]CL[facility] [id number] [address] [place] Calcium.ionized adjusted to pH 7.4 (Bld) [Moles/Vol] 1.23 mmol/L Normal 1.08-1.30 [facility] Comment on above: Order Comment: Speci men Type: BLOOD SPECIMENOrdering Facility: [facility] Address: [address] [place] [address] Performed By: #### 1 995-0 ####[facility]CL[facility] [id number] [address] [place] Comprehensive metabolic 2000 panelon 11-20-2022 Albumin [Mass/Vol] 4.0 g/dL Normal 3.9-4.9 [facility] Comment on above: Order Comment: Speci men Type: BLOOD SPECIMENOrdering Facility: [facility] Address: [address] [place], [place] [address] Performed By: #### 3 3959-8, , 07933-7 ####[facility]CL[facility] [id number] [place] [address] [place] ALP [Catalytic activity/Vol] 90 U/L Normal 38-113 [facility] Comment on above: Order Comment: Speci men Type: BLOOD SPECIMENOrdering Facility: [facility] Address: [address] Performed By: #### 3 3959-8, 88373-7, 66404-8 ####[facility]CL[facility] [id number] [place] [address] [place] ALT [Catalytic activity/Vol] 7 U/L Low 10-54 [facility] Comment on above: Order Comment: Speci men Type: BLOOD SPECIMENOrdering Facility: [facility] Address: [address] [place] [address] Performed By: #### 3 3959-8, 41351-0, ####[facility]CL[facility] [id number] [place] [address] [place] Anion gap [Moles/Vol] 12 mmol/L Normal 9-18 [facility] Comment on above: Order Comment: Speci men Type: BLOOD SPECIMENOrdering Facility: [facility] Address: [address] [place] [address] Performed By: #### 3 3959-8, , ####[facility]CL[facility] [id number] [place] [address] [place] AST [Catalytic activity/Vol] 11 U/L Low 14-40 [facility] Comment on above: Order Comment: Speci men Type: BLOOD SPECIMENOrdering Facility: [facility] Address: [address] [place] [address] Performed By: #### 3 3959-8, , 50802-7 ####[facility]CL[facility] [id number] [place] [address] [place] Bilirubin [Mass/Vol] 0.2 mg/dL Normal 0.2-1.3 [facility] Comment on above: Order Comment: Speci men Type: BLOOD SPECIMENOrdering Facility: [facility] Address: [address] [place] [address] Performed By: #### 3 3959-8, , 36693-5 ####[facility]CL[facility] [id number] [place] [address] [place] Calcium [Mass/Vol] 8.9 mg/dL Normal 8.5-10.2 [facility] Comment on above: Order Comment: Speci men Type: BLOOD SPECIMENOrdering Facility: [facility] Address: [address] [place] [address] Performed By: #### 3 3959-8, 78559-1, ####[facility]CL[facility] [id number] [place] [address] [place] Chloride [Moles/Vol] 110 mmol/L High 97-105 [facility] Comment on above: Order Comment: Speci men Type: BLOOD SPECIMENOrdering Facility: [facility] Address: [address] [place] [address] Performed By: #### 3 3959-8, , ####[facility]CL[facility] [id number] [place] [address] [place] CO2 [Moles/Vol] 20 mmol/L Low 22-30 [facility] Comment on above: Order Comment: Speci men Type: BLOOD SPECIMENOrdering Facility: [facility] Address: [address] [place] [address] Performed By: #### 3 3959-8, , ####[facility]CL[facility] [id number] [place] [address] [place] Creatinine [Mass/Vol] 0.95 mg/dL Normal 0.73-1.22 [facility] Comment on above: Order Comment: Speci men Type: BLOOD SPECIMENOrdering Facility: [facility] Address: [address] [place], [place] [address] Performed By: #### 3 3959-8, , 14166-9 ####[facility] LABCLIA [id number] [place] [id number] [place] ESTIMATED GLOMERULAR FILTRATION RATE 89 mL/min/1.73m??? Normal >=60 [facility] Comment on above: Order Comment: Specisatu trevizo Type: BLOOD SPECIMENOrdering Facility: [facility] Address: [address] [place], [place] [address] Result Comment: Karina mated Glomerular Filtration Rate [...] GFR. Performed By: #### 3 3959-8, , ####[facility] [id number] [place] [address] [place] Glucose [Mass/Vol] 74 mg/dL Normal 74-99 [facility] Comment on above: Order Comment: Chaz trevizo Type: BLOOD SPECIMENOrdering Facility: [facility] Address: [address] [place], [place] [address] Result Comment: The [place] [employer] (ADA) provides guidance for cutoff [...] Standards of Medical Care in Diabetes 2016, [place] [employer]. Diabetes Care. 2016.39(Suppl 1). Performed By: #### 3 3959-8, , ####[facility] [id number] [place] [id number] [place] Potassium [Moles/Vol] 4.2 mmol/L Normal 3.7-5.1 [facility] Comment on above: Order Comment: Speci men Type: BLOOD SPECIMENOrdering Facility: [facility] Address: [address] Performed By: #### 3 3959-8, , ####[facility]CL[facility] [id number] [place] [address] [place] Protein [Mass/Vol] 6.2 g/dL Low 6.3-8.0 [facility] Comment on above: Order Comment: Speci men Type: BLOOD SPECIMENOrdering Facility: [facility] Address: [address] Performed By: #### 3 3959-8, , ####[facility]CL[facility] [id number] [place] [address] [place] Sodium [Moles/Vol] 142 mmol/L Normal 136-144 [facility] Comment on above: Order Comment: Speci men Type: BLOOD SPECIMENOrdering Facility: [facility] Address: [address] Performed By: #### 3 3959-8, , ####[facility]CL[facility] [id number] [place] [address] [place] Urea nitrogen [Mass/Vol] 26 mg/dL High 9-24 [facility] Comment on above: Order Comment: Speci men Type: BLOOD SPECIMENOrdering Facility: [facility] Address: [address] [place] [id number] Performed By: #### 3 3959-8, , ####[facility]CLIA [id number] [address] [address] [place] [id number] 11-20-2022 ECG01 Normal [facility] ED PROV NOTEon 11-20-2022 ED PROV NOTE Normal [facility] ED PROV NOTE Normal [facility] HISTORY PHYSICALon HISTORY PHYSICAL Normal [facility] LIPID PANEL, NONFASTINGon Cholesterol [Mass/Vol] 135 mg/dL Normal <200 [facility] Comment on above: Order Comment: Speci men Type: BLOOD SPECIMENOrdering Facility: [facility] Address: [address] [place] [address] Result Comment: <200 mg/dL, Desirable 200-239 mg/dL, Borderline high>239 mg/dL, High Performed By: #### L IPNF ####[facility]CL[facility] [id number] [place] [address] [place] HDL CHOLESTEROL, NF 35 mg/dL Low >39 [facility] Comment on above: Order Comment: Speci men Type: BLOOD SPECIMENOrdering Facility: [facility] Address: [address] [place] [address] Result Comment: 40-5 9 mg/dL, Acceptable>59 mg/dL, High: Negative risk factor for coronary heart disease<40 mg/dL, Low: Positive risk factor for coronary heart disease Performed By: #### L IPNF ####[facility]CL[facility] [id number] [place] [address] [place] LDL CHOLESTEROL, NF 76 mg/dL Normal <100 [facility] Comment on above: Order Comment: Speci men Type: BLOOD SPECIMENOrdering Facility: [facility] Address: [address] [place] [address] Result Comment: <100 mg/dL, Optimal 100-129 mg/dL, Near optimal/above optimal 130-159 mg/dL, Borderline high 160-189 mg/dL, High>189 mg/dL, Very highSecondary prevention optimal LDL Cholesterol levels are recommended to be < 70 mg/dL Performed By: #### L IPNF ####[facility]CL[facility] [id number] [place] [address] [place] LDL/HDL RATIO, NF 2.17 mg/dL Normal <2.54 [facility] Comment on above: Order Comment: Speci men Type: BLOOD SPECIMENOrdering Facility: [facility] Address: [address] [place] [address] Result Comment: Andres cunningham:1. National Cholesterol Education Program ATP III Guideline At-A-Glance Quick Desk Reference: National Heart, Lung, and Blood [place]. National Institutes of Health. 2001: NIH Publication No. 01-3305.2. An International Atherosclerosis Society position paper: global recommendations for the management of dyslipidemia: executive summary, Atherosclerosis. 2014: 232(2):410-413. Performed By: #### L IPNF ####[facility]CLIA [id number] [address] [place] NON HDL CHOL, NF 100 mg/dL Normal <130 [facility] Comment on above: Order Comment: Chaz joseline Type: BLOOD SPECIMENOrdering Facility: [facility] Address: [address] [address] Result Comment: <130 mg/dL, Optimal 130-159 mg/dL, Near optimal/above optimal 160-189 mg/dL, Borderline high 190-219 mg/dL, High>219 mg/dL, Very highSecondary prevention optimal non HDL Cholesterol levels are recommended to be <100 mg/dL Performed By: #### L IPNF ####[facility]CL[facility] [id number] [address] [place] T CHOL/HDL RATIO NF 3.86 mg/dL Normal <5.10 [facility] Comment on above: Order Comment: Princessi men Type: BLOOD SPECIMENOrdering Facility: [facility] Address: [address] [address] Performed By: #### L IPNF ####[facility]CLIA [id number] [address] [place] TRIGLYCERIDES, NF 118 mg/dL Normal <150 [facility] Comment on above: Order Comment: Princessi men Type: BLOOD SPECIMENOrdering Facility: [facility] Address: [address] [place] [address] Result Comment: <150 mg/dL, Normal 150-199 mg/dL, Borderline high 200-499 mg/dL, High>499 mg/dL, Very high Performed By: #### L IPNF ####[facility]CL[facility] [id number] [place] [address] [place] VLDL CHOLESTEROL, NF 24 mg/dL Normal <30 [facility] Comment on above: Order Comment: Speci men Type: BLOOD SPECIMENOrdering Facility: [facility] Address: [address] [address] Performed By: #### L IPNF ####[facility] [id number] [place] [address] [place] Magnesium SerPl-mCncon 11-20 Magnesium [Mass/Vol] 2.1 mg/dL Normal 1.7-2.3 [facility] Comment on above: Order Comment: Speci men Type: BLOOD SPECIMENOrdering Facility: [facility] Address: [address] [place] [address] Performed By: #### 3 3959-8, 71206-1, 11982-1 ####[facility]CL[facility] [id number] [place] [address] [place] Prealb SerPl-mCncon 11-20-19 23 Prealbumin [Mass/Vol] 25 mg/dL Normal 17-36 [facility] Comment on above: Order Comment: Speci men Type: BLOOD SPECIMENOrdering Facility: [facility] Address: [address] [address] Performed By: #### 1 4338-8 ####[facility]CL[facility] [id number] [place] [address] [place] Procalcitonin SerPl-mCncon 0 11-20-2022 Procalcitonin [Mass/Vol] 0.10 ng/mL High <0.09 [facility] Comment on above: Order Comment: Chaz trevizo Type: BLOOD SPECIMENOrdering Facility: [facility] Address: [address] [place] [address] Result Comment: For a guided interpretation of test results, please visit the Change in Procalcitonin Calculator, [email or web address]. Performed By: #### 3 3959-8, 04325-4, 43614-4 ####[facility] [id number] [place] [address] [place] Retics #on 11-20-2022 Reticulocytes (Bld) [#/Vol] 0.33104 10*3/uL Normal 0.018-0.10 0 [facility] Comment on above: Order Comment: Chaz trevizo Type: BLOOD SPECIMENOrdering Facility: [facility] Address: [address] [place] [address] Performed By: #### 5 8410-2, 94386-2, 09608-9 ####[facility] [id number] [place] [address] [place] Reticulocytes (Bld) [#/Vol]o n 11-20-2022 Reticulocytes/100 RBC (Bld) 1.4 % Normal 0.4-2.0 [facility] Comment on above: Order Comment: Chaz trevizo Type: BLOOD SPECIMENOrdering Facility: [facility] Address: [address] [place] [address] Performed By: #### 5 8410-2, 92573-8, 99056-7 ####[facility] [id number] [place] [address] [place] SARS-CoV-2 RNA Resp Ql KELLIE+p robeon 11-20-2022 SARS-CoV-2 (COVID-19) RNA KELLIE+probe Ql (Resp) COVID 19 RESULT: Detected The method used is RT-PCR or an equivalent NAAT method. Reference Range(the expected result in uninfected individuals): Not detected Normal [facility] Comment on above: Performed By: #### 9 4500-6 ####[facility] LABCL[facility] [id number] [place] [address] [place] Urinalysis complete panel (U )on 11-20-2022 Bilirubin Ql (U) Negative Normal Negative [facility] Comment on above: Order Comment: Speci men Type: URINE SPECIMENOrdering Facility: [facility] Address: [address] [place] [address] Performed By: #### 2 4356-8 ####[facility] LABCLIA [id number] [place] [address] [place] Clarity (Unsp spec) Clear Normal Clear [facility] Comment on above: Order Comment: Speci men Type: URINE SPECIMENOrdering Facility: [facility] Address: [address] [place] [address] Performed By: #### 2 4356-8 ####[facility] LABCLIA [id number] [address] STATES OF [facility] Color (U) Yellow Normal Yellow [facility] Comment on above: Order Comment: Speci men Type: URINE SPECIMENOrdering Facility: [facility] Address: [address] [place] [address] Performed By: #### 2 4356-8 ####[facility]CL[facility] [id number] [place] [address] [place] Glucose Test strip (U) [Mass/Vol] Negative Normal Trace, Negative [facility] Comment on above: Order Comment: Speci men Type: URINE SPECIMENOrdering Facility: [facility] Address: [address] [place] [address] Performed By: #### 2 4356-8 ####[facility] LABCLIA [id number] [place] [address] [place] Hemoglobin Ql (U) Negative Normal Negative, Trace [facility] Comment on above: Order Comment: Speci men Type: URINE SPECIMENOrdering Facility: [facility] Address: [address] [address] Performed By: #### 2 4356-8 ####[facility] LABCLIA [id number] [address] STATES [facility] Ketones Ql (U) Trace Normal Trace, Negative [facility] Comment on above: Order Comment: Speci men Type: URINE SPECIMENOrdering Facility: [facility] Address: [address] [place], [place] [address] Performed By: #### 2 4356-8 ####[facility] LABCLIA [id number] [place] [address] [place] Leukocyte esterase Test strip Ql (U) Negative Normal Negative, 25 Winter/mL [facility] Comment on above: Order Comment: Speci men Type: URINE SPECIMENOrdering Facility: [facility] Address: [address] [place] [address] Performed By: #### 2 4356-8 ####[facility] LABCLIA [id number] [address] Nitrite Ql (U) Negative Normal Negative [facility] Comment on above: Order Comment: Speci men Type: URINE SPECIMENOrdering Facility: [facility] Address: [address] [place], [place] [address] Performed By: #### 2 4356-8 ####[facility] LABCLIA [id number] [place] [address] [place] pH (U) 5.0 [pH] Normal 5.0-8.0 [facility] Comment on above: Order Comment: Speci men Type: URINE SPECIMENOrdering Facility: [facility] Address: [address] [place], [place] [address] Performed By: #### 2 4356-8 ####[facility] LABCLIA [id number] [address] Protein (U) [Mass/Vol] Trace Normal Trace , Negative [facility] Comment on above: Order Comment: Speci men Type: URINE SPECIMENOrdering Facility: [facility] Address: [address] [place] [address] Performed By: #### 2 4356-8 ####[facility] LABCLIA [id number] [place] [address] [place] RBC LM.HPF (Urine sed) [#/Area] 3-5 /HPF Abnormal 0-3 /HPF [facility] Comment on above: Order Comment: Speci men Type: URINE SPECIMENOrdering Facility: [facility] Address: [address] [place] [address] Performed By: #### 2 4356-8 ####[facility] LABIA [id number] [address] [place] Specific gravity (U) [Rel density] 1.020 Normal 1.005-1.03 0 [facility] Comment on above: Order Comment: Speci men Type: URINE SPECIMENOrdering Facility: [facility] Address: [address] [place] [address] Performed By: #### 2 4356-8 ####[facility] LABIA [id number] [address] Urobilinogen Ql (U) Negative Normal Negative [facility] Comment on above: Order Comment: Speci men Type: URINE SPECIMENOrdering Facility: [facility] Address: [address] [place], [place] [address] Performed By: #### 2 4356-8 ####[facility] LABCLIA [id number] [place] [address] [place] WBC LM.HPF (Urine sed) [#/Area] 0-5 /HPF Normal 0-5 /HPF [facility] Comment on above: Order Comment: Speci men Type: URINE SPECIMENOrdering Facility: [facility] Address: [facility] [place] [address] Performed By: #### 2 4356-8 ####[facility] LABCLIA [id number] [facility] [id number] [place] [address] [place] XR CHEST 1V FRONTAL PORTon 0 11-20-2022 XR CHEST 1V FRONTAL PORT Normal [facility] CBC AUTO DIFFon 11-09-2022 BASO # 0.0 103/ul Normal 0.0-0.1 [facility] Comment on above: Performed By: #### C BC #### [facility] [address] [address] [address] Bruce Nicholas Basophils/100 WBC (Bld) 0.1 % Critically low 0.2-2.0 [facility] Comment on above: Performed By: #### C BC #### [facility] [address] [address] [address] Bruce Nicholas EO # 0.0 103/ul Normal 0.0-0.7 [facility] Comment on above: Performed By: #### C BC #### [facility] [address] [address] [address] Bruce Nicholas Eosinophils/100 WBC (Bld) 0.0 % Critically low 0.9-7.0 [facility] Comment on above: Performed By: #### C BC #### [facility] [address] [address] [address] Bruce Nicholas Erythrocyte distribution width (RBC) [Ratio] 16.0 % Critically high 11.0-15.0 [facility] Comment on above: Performed By: #### C BC #### [facility] [address] [address] [address] Bruce Nicholas Hematocrit (Bld) [Volume fraction] 36.6 % Critically low 42.0-54.0 [facility] Comment on above: Performed By: #### C BC #### [facility] [address] [address] [address] Bruce Nicholas Hemoglobin (Bld) [Mass/Vol] 12.3 g/dL Critically low 14.0-18.0 [facility] Comment on above: Performed By: #### C BC #### [facility] [address] [address] [address] Bruce Nicholas IG # 0.06 10e3/ul Critically high 0.00-0.03 [facility] Comment on above: Performed By: #### C BC #### [facility] [address] [address] [address] Bruce Nicholas IG % 0.7 % Critically high 0.0-0.5 [facility] Comment on above: Performed By: #### C BC #### [facility] [address] [address] [address] Bruce Nicholas LYMPH # 1.0 103/ul Critically low 1.2-3.8 [facility] Comment on above: Performed By: #### C BC #### [facility] [address] [place] [address] Dr. Bruce Nicholas Lymphocytes/100 WBC (Bld) 11.8 % Critically low 20.5-60.0 [facility] Comment on above: Performed By: #### C BC #### [facility] [address] [address] [address] Bruce Nicholas MANUAL DIFF REQ NO Normal [facility] Comment on above: Performed By: #### C BC #### [facility] [address] [address] [address] Bruce Nicholas MCH (RBC) [Entitic mass] 27.3 pg Normal 25.9-34.0 [facility] Comment on above: Performed By: #### C BC #### [facility] [address] [address] [address] Bruce Nicholas MCHC (RBC) [Mass/Vol] 33.6 g/dL Normal 29.9-35.2 [facility] Comment on above: Performed By: #### C BC #### [facility] [address] [place] [address] Dr. Bruce Nicholas MCV (RBC) [Entitic vol] 81.2 fL Normal 80.0-94.0 [facility] Comment on above: Performed By: #### C BC #### [facility] [address] [address] [address] Bruce Nicholas MONO # 0.2 103/ul Critically low 0.3-0.8 [facility] Comment on above: Performed By: #### C BC #### [facility] [address] [address] [address] Bruce Nicholas Monocytes/100 WBC (Bld) 3.0 % Normal 1.7-12.0 [facility] Comment on above: Performed By: #### C BC #### [facility] [address] [address] [address] Bruce Nicholas NEUT # 6.8 103/ul Critically high 1.4-6.5 [facility] Comment on above: Performed By: #### C BC #### [facility] [address] [place] [address] Dr. Bruce Nicholas Neutrophils/100 WBC (Bld) 84.4 % Critically high 43.0-75.0 [facility] Comment on above: Performed By: #### C BC #### [facility] [address] [address] [address] Bruce Nicholas Platelet mean volume (Bld) [Entitic vol] 11.6 fL Normal 9.5-13.5 [facility] Comment on above: Performed By: #### C BC #### [facility] [address] [address] [address] Bruce Nicholas PLT 206 103/ul Normal 150-450 [facility] Comment on above: Performed By: #### C BC #### [facility] [address] [address] [address] Bruce Nicholas RBC 4.51 106/ul Critically low 4.70-6.10 [facility] Comment on above: Performed By: #### C BC #### [facility] [address] [address] [address] Bruce Nicholas WBC 8.1 103/ul Normal 4.0-11.0 [facility] Comment on above: Performed By: #### C BC #### [facility] [address] [address] [address] Bruce Nicholas POINT OF CARE GLUCOSEon 10-20 Glucose [Mass/Vol] 134 mg/dL Critically high 74-106 [facility] Comment on above: Performed By: #### P OCGLUC #### [facility] [address] [address] [address] Bruce Nicholas PROF CHEM 8 (BAS METB)on Anion gap [Moles/Vol] 13.3 mmol/L Normal [facility] Comment on above: Performed By: #### P OCGLUC #### [facility] [address] [address] [address] Bruce Nicholas Calcium [Mass/Vol] 9.0 mg/dL Normal 8.5-10.1 [facility] Comment on above: Performed By: #### P OCGLUC #### [facility] [address] [address] [address] Bruce Nicholas Chloride [Moles/Vol] 105 mmol/L Normal 98-107 [facility] Comment on above: Performed By: #### P OCGLUC #### [facility] [address] [address] [address] Bruce Nicholas CO2 [Moles/Vol] 24.9 mmol/L Normal 21.0-32.0 [facility] Comment on above: Performed By: #### P OCGLUC #### [facility] [address] [address] [address] Bruce Nicholas Creatinine [Mass/Vol] 0.86 mg/dL Normal 0.70-1.30 [facility] Comment on above: Performed By: #### P OCGLUC #### [facility] [address] [address] [address] Bruce Nicholas EGFR-AF MEXICAN >60 Normal >=60 [facility] Comment on above: Performed By: #### P OCGLUC #### [facility] [address] [place] [address] Dr. Bruce Nicholas EGFR-NON AF MEXICAN >60 Normal >=60 [facility] Comment on above: Performed By: #### P OCGLUC #### [facility] [address] [address] [address] Bruce Nicholas Glucose [Mass/Vol] 127 mg/dL Critically high 74-106 [facility] Comment on above: Performed By: #### P OCGLUC #### [facility] [address] [address] [address] Bruce Nicholas Potassium [Moles/Vol] 4.2 mmol/L Normal 3.5-5.1 [facility] Comment on above: Performed By: #### P OCGLUC #### [facility] [address] [address] [address] Bruce Nicholas Sodium [Moles/Vol] 139 mmol/L Normal 136-145 [facility] Comment on above: Performed By: #### P OCGLUC #### [facility] [address] [address] [address] Bruce Nicholas Urea nitrogen [Mass/Vol] 30.0 mg/dL Critically high 7.0-18.0 [facility] Comment on above: Performed By: #### P OCGLUC #### [facility] [address] [address] [address] Bruce Nicholas Urea nitrogen/Creatinine [Mass ratio] 34.9 mg/mg Normal [facility] Comment on above: Performed By: #### P OCGLUC #### [facility] [address] [address] [address] Bruce Nicholas CBC AUTO DIFFon 11-08-2022 BASO # 0.0 103/ul Normal 0.0-0.1 [facility] Comment on above: Performed By: #### C VDTBH #### [facility] [address] [address] [address] Bruce Nicholas Basophils/100 WBC (Bld) 0.1 % Critically low 0.2-2.0 [facility] Comment on above: Performed By: #### C VDTBH #### [facility] [address] [address] [address] Bruce Nicholas EO # 0.0 103/ul Normal 0.0-0.7 [facility] Comment on above: Performed By: #### C VDTBH #### [facility] [address] [place] [address] Dr. Bruce Nicholas Eosinophils/100 WBC (Bld) 0.0 % Critically low 0.9-7.0 [facility] Comment on above: Performed By: #### C VDTBH #### [facility] [address] [place] [address] Dr. Bruce Nicholas Erythrocyte distribution width (RBC) [Ratio] 15.8 % Critically high 11.0-15.0 [facility] Comment on above: Performed By: #### C VDTBH #### [facility] [address] [place] [address] Dr. Bruce Nicholas Hematocrit (Bld) [Volume fraction] 33.4 % Critically low 42.0-54.0 [facility] Comment on above: Performed By: #### C VDTBH #### [facility] [address] [place] [address] Dr. Bruce Nicholas Hemoglobin (Bld) [Mass/Vol] 11.5 g/dL Critically low 14.0-18.0 [facility] Comment on above: Performed By: #### C VDTBH #### [facility] [address] [place] [address] Dr. Bruce Nicholas IG # 0.05 10e3/ul Critically high 0.00-0.03 [facility] Comment on above: Performed By: #### C VDTBH #### [facility] [address] [place] [address] Dr. Bruce Nicholas IG % 0.5 % Normal 0.0-0.5 [facility] Comment on above: Performed By: #### C VDTBH #### [facility] [address] [place] [address] Dr. Bruce Nicholas LYMPH # 0.9 103/ul Critically low 1.2-3.8 [facility] Comment on above: Performed By: #### C VDTBH #### [facility] [address] [place] [address] Dr. Bruce Nicholas Lymphocytes/100 WBC (Bld) 9.6 % Critically low 20.5-60.0 [facility] Comment on above: Performed By: #### C VDTBH #### [facility] [address] [place] [address] Dr. Bruce Nicholas MANUAL DIFF REQ NO Normal [facility] Comment on above: Performed By: #### C VDTBH #### [facility] [address] [place] [address] Dr. Bruce Nicholas MCH (RBC) [Entitic mass] 27.5 pg Normal 25.9-34.0 [facility] Comment on above: Performed By: #### C VDTBH #### [facility] [address] [place] [address] Dr. Bruce Nicholas MCHC (RBC) [Mass/Vol] 34.4 g/dL Normal 29.9-35.2 [facility] Comment on above: Performed By: #### C VDTBH #### [facility] [address] [place] [address] Dr. Bruce Nicholas MCV (RBC) [Entitic vol] 79.9 fL Critically low 80.0-94.0 [facility] Comment on above: Performed By: #### C VDTBH #### [facility] [address] [place] [address] Dr. Bruce Nicholas MONO # 0.3 103/ul Normal 0.3-0.8 [facility] Comment on above: Performed By: #### C VDTBH #### [facility] [address] [place] [address] Dr. Bruce Nicholas Monocytes/100 WBC (Bld) 3.3 % Normal 1.7-12.0 [facility] Comment on above: Performed By: #### C VDTBH #### [facility] [address] [place] [address] Dr. Bruce Nicholas NEUT # 8.3 103/ul Critically high 1.4-6.5 [facility] Comment on above: Performed By: #### C VDTBH #### [facility] [address] [place] [address] Dr. Bruce Nicholas Neutrophils/100 WBC (Bld) 86.5 % Critically high 43.0-75.0 [facility] Comment on above: Performed By: #### C VDTBH #### [facility] [address] [address] [address] Bruce Nicholas Platelet mean volume (Bld) [Entitic vol] 12.1 fL Normal 9.5-13.5 [facility] Comment on above: Performed By: #### C VDTBH #### [facility] [address] [address] [address] Bruce Nicholas PLT 205 103/ul Normal 150-450 [facility] Comment on above: Performed By: #### C VDTBH #### [facility] [address] [address] [address] Bruce Nicholas RBC 4.18 106/ul Critically low 4.70-6.10 [facility] Comment on above: Performed By: #### C VDTBH #### [facility] [address] [place] [address] Dr. Bruce Nicholas WBC 9.6 103/ul Normal 4.0-11.0 [facility] Comment on above: Performed By: #### C VDTBH #### [facility] [address] [place] [address] Dr. Bruce Nicholas POINT OF CARE GLUCOSEon 10-20 Glucose [Mass/Vol] 121 mg/dL Critically high 74-106 [facility] Comment on above: Performed By: #### C VDTBH #### [facility] [address] [place] [address] Dr. Bruce Nicholas Glucose [Mass/Vol] 126 mg/dL Critically high 74-106 [facility] Comment on above: Performed By: #### C BC #### [facility] [address] [address] [address] Bruce Nicholas Glucose [Mass/Vol] 164 mg/dL Critically high 74-106 [facility] Comment on above: Performed By: #### C BC #### [facility] [address] [place] [address] Dr. Bruce Nicholas PROF CHEM 8 (BAS METB)on Anion gap [Moles/Vol] 14.2 mmol/L Normal [facility] Comment on above: Performed By: #### P OCGLUC #### [facility] [address] [address] [address] Bruce Nicholas Calcium [Mass/Vol] 8.9 mg/dL Normal 8.5-10.1 [facility] Comment on above: Performed By: #### P OCGLUC #### [facility] [address] [address] [address] Bruce Nicholas Chloride [Moles/Vol] 107 mmol/L Normal 98-107 [facility] Comment on above: Performed By: #### P OCGLUC #### [facility] [address] [address] [address] Bruce Nicholas CO2 [Moles/Vol] 22.8 mmol/L Normal 21.0-32.0 [facility] Comment on above: Performed By: #### P OCGLUC #### [facility] [address] [address] [address] Bruce Nicholas Creatinine [Mass/Vol] 0.94 mg/dL Normal 0.70-1.30 [facility] Comment on above: Performed By: #### P OCGLUC #### [facility] [address] [address] [address] Bruce Nicholas EGFR-AF MEXICAN >60 Normal >=60 [facility] Comment on above: Performed By: #### P OCGLUC #### [facility] [address] [address] [address] Bruce Nicholas EGFR-NON AF MEXICAN >60 Normal >=60 [facility] Comment on above: Performed By: #### P OCGLUC #### [facility] [address] [address] [address] Bruce Nicholas Glucose [Mass/Vol] 128 mg/dL Critically high 74-106 [facility] Comment on above: Performed By: #### P OCGLUC #### [facility] [address] [address] [address] Bruce Nicholas Potassium [Moles/Vol] 4.0 mmol/L Normal 3.5-5.1 [facility] Comment on above: Performed By: #### P OCGLUC #### [facility] [address] [address] [address] Bruce Nicholas Sodium [Moles/Vol] 140 mmol/L Normal 136-145 [facility] Comment on above: Performed By: #### P OCGLUC #### [facility] [address] [address] [address] Bruce Nicholas Urea nitrogen [Mass/Vol] 33.0 mg/dL Critically high 7.0-18.0 [facility] Comment on above: Performed By: #### P OCGLUC #### [facility] [address] [address] [address] Bruce Nicholas Urea nitrogen/Creatinine [Mass ratio] 35.1 mg/mg Normal [facility] Comment on above: Performed By: #### P OCGLUC #### [facility] [address] [address] [address] Bruce Nicholas XR CHEST 2 Von [...] EN HUIZARH Date: 2022-11-08 13:38 Normal [facility] CBC AUTO DIFFon 11-07-2022 BASO # 0.0 103/ul Normal 0.0-0.1 [facility] Comment on above: Performed By: #### C BC #### [facility] [address] [address] [address] Bruce Nicholas Basophils/100 WBC (Bld) 0.0 % Critically low 0.2-2.0 [facility] Comment on above: Performed By: #### C BC #### [facility] [address] [address] [address] Bruce Nicholas EO # 0.0 103/ul Normal 0.0-0.7 [facility] Comment on above: Performed By: #### C BC #### [facility] [address] [place] [address] Dr. Bruce Nicholas Eosinophils/100 WBC (Bld) 0.0 % Critically low 0.9-7.0 [facility] Comment on above: Performed By: #### C BC #### [facility] [address] [place] [address] Dr. Bruce Nicholas Erythrocyte distribution width (RBC) [Ratio] 16.1 % Critically high 11.0-15.0 [facility] Comment on above: Performed By: #### C BC #### [facility] [address] [place] [address] Dr. Bruce Nicholas Hematocrit (Bld) [Volume fraction] 36.3 % Critically low 42.0-54.0 [facility] Comment on above: Performed By: #### C BC #### [facility] [address] [place] [address] Dr. Bruce Nicholas Hemoglobin (Bld) [Mass/Vol] 11.5 g/dL Critically low 14.0-18.0 [facility] Comment on above: Performed By: #### C BC #### [facility] [address] [place] [address] Dr. Bruce Nicholas IG # 0.07 10e3/ul Critically high 0.00-0.03 [facility] Comment on above: Performed By: #### C BC #### [facility] [address] [place] [address] Dr. Bruce Nicholas IG % 0.6 % Critically high 0.0-0.5 [facility] Comment on above: Performed By: #### C BC #### [facility] [address] [place] [address] Dr. Bruce Nicholas LYMPH # 0.9 103/ul Critically low 1.2-3.8 [facility] Comment on above: Performed By: #### C BC #### [facility] [address] [place] [address] Dr. Bruce Nicholas Lymphocytes/100 WBC (Bld) 7.2 % Critically low 20.5-60.0 [facility] Comment on above: Performed By: #### C BC #### [facility] [address] [place] [address] Dr. Bruce Nicholas MANUAL DIFF REQ NO Normal [facility] Comment on above: Performed By: #### C BC #### [facility] [address] [place] [address] Dr. Bruce Nicholas MCH (RBC) [Entitic mass] 27.7 pg Normal 25.9-34.0 [facility] Comment on above: Performed By: #### C BC #### [facility] [address] [place] [address] Dr. Bruce Nicholas MCHC (RBC) [Mass/Vol] 31.7 g/dL Normal 29.9-35.2 [facility] Comment on above: Performed By: #### C BC #### [facility] [facility] [address] [place] [address] Dr. Bruce Nicholas MCV (RBC) [Entitic vol] 87.5 fL Normal 80.0-94.0 [facility] Comment on above: Performed By: #### C BC #### [facility] [address] [place] [address] Dr. Bruce Nicholas MONO # 0.3 103/ul Normal 0.3-0.8 [facility] Comment on above: Performed By: #### C BC #### [facility] [address] [place] [address] Dr. Bruce Nicholas Monocytes/100 WBC (Bld) 2.9 % Normal 1.7-12.0 [facility] Comment on above: Performed By: #### C BC #### [facility] [address] [address] [address] Bruce Nicholas NEUT # 10.6 103/ul Critically high 1.4-6.5 [facility] Comment on above: Performed By: #### C BC #### [facility] [address] [address] [address] Bruce Nicholas Neutrophils/100 WBC (Bld) 89.3 % Critically high 43.0-75.0 [facility] Comment on above: Performed By: #### C BC #### [facility] [address] [address] [address] Bruce Nicholas Platelet mean volume (Bld) [Entitic vol] 12.4 fL Normal 9.5-13.5 [facility] Comment on above: Performed By: #### C BC #### [facility] [address] [address] [address] Bruce Nicholas PLT 195 103/ul Normal 150-450 [facility] Comment on above: Performed By: #### C BC #### [facility] [address] [address] [address] Bruce Nicholas RBC 4.15 106/ul Critically low 4.70-6.10 [facility] Comment on above: Performed By: #### C BC #### [facility] [address] [address] [address] Bruce Nicholas WBC 11.9 103/ul Critically high 4.0-11.0 [facility] Comment on above: Performed By: #### C BC #### [facility] [address] [address] [address] Bruce Nicholas POINT OF CARE GLUCOSEon 10-20 0 Glucose [Mass/Vol] 145 mg/dL Critically high 74-106 [facility] Comment on above: Performed By: #### P OCGLUC #### [facility] [address] [address] [address] Bruce Nicholas Glucose [Mass/Vol] 139 mg/dL Critically high 74-106 [facility] Comment on above: Performed By: #### C BC #### [facility] [address] [address] [address] Bruce Nicholas Glucose [Mass/Vol] 122 mg/dL Critically high 74-106 [facility] Comment on above: Performed By: #### P OCGLUC #### [facility] [address] [address] [address] Bruce Nicholas PROF CHEM 8 (BAS METB)on Anion gap [Moles/Vol] 14.8 mmol/L Normal [facility] Comment on above: Performed By: #### C BC #### [facility] [address] [address] [address] Bruce Nicholas Calcium [Mass/Vol] 9.0 mg/dL Normal 8.5-10.1 [facility] Comment on above: Performed By: #### C BC #### [facility] [address] [address] [address] Bruce Nicholas Chloride [Moles/Vol] 107 mmol/L Normal 98-107 [facility] Comment on above: Performed By: #### C BC #### [facility] [address] [address] [address] Bruce Nicholas CO2 [Moles/Vol] 21.3 mmol/L Normal 21.0-32.0 [facility] Comment on above: Performed By: #### C BC #### [facility] [address] [address] [address] Bruce Nicholas Creatinine [Mass/Vol] 1.11 mg/dL Normal 0.70-1.30 [facility] Comment on above: Performed By: #### C BC #### [facility] [address] [address] [address] Bruce Nicholas EGFR-AF MEXICAN >60 Normal >=60 [facility] Comment on above: Performed By: #### C BC #### [facility] [address] [address] [address] Bruce Nicholas EGFR-NON AF MEXICAN >60 Normal >=60 [facility] Comment on above: Performed By: #### C BC #### [facility] [address] [address] [address] Bruce Nicholas Glucose [Mass/Vol] 158 mg/dL Critically high 74-106 [facility] Comment on above: Performed By: #### C BC #### [facility] [address] [address] [address] Bruce Nicholas Potassium [Moles/Vol] 4.1 mmol/L Normal 3.5-5.1 [facility] Comment on above: Performed By: #### C BC #### [facility] [address] [address] [address] Bruce Nicholas Sodium [Moles/Vol] 139 mmol/L Normal 136-145 [facility] Comment on above: Performed By: #### C BC #### [facility] [address] [place] [address] Dr. Bruce Nicholas Urea nitrogen [Mass/Vol] 28.0 mg/dL Critically high 7.0-18.0 [facility] Comment on above: Performed By: #### C BC #### [facility] [address] [place] [address] Dr. Bruce Nicholas Urea nitrogen/Creatinine [Mass ratio] 25.2 mg/mg Normal [facility] Comment on above: Performed By: #### C BC #### [facility] [address] [place] [address] Dr. Bruce Nicholas CBC AUTO DIFFon 11-06-2022 BASO # 0.0 103/ul Normal 0.0-0.1 [facility] Comment on above: Performed By: #### C BC #### [facility] [address] [place] [address] Dr. Bruce Nicholas Basophils/100 WBC (Bld) 0.0 % Critically low 0.2-2.0 [facility] Comment on above: Performed By: #### C BC #### [facility] [address] [place] [address] Dr. Bruce Nicholas EO # 0.0 103/ul Normal 0.0-0.7 [facility] Comment on above: Performed By: #### C BC #### [facility] [address] [place] [address] Dr. Bruce Nicholas Eosinophils/100 WBC (Bld) 0.0 % Critically low 0.9-7.0 [facility] Comment on above: Performed By: #### C BC #### [facility] [address] [place] [address] Dr. Bruce Nicholas Erythrocyte distribution width (RBC) [Ratio] 15.8 % Critically high 11.0-15.0 [facility] Comment on above: Performed By: #### C BC #### [facility] [address] [place] [address] Dr. Bruce Nicholas Hematocrit (Bld) [Volume fraction] 37.1 % Critically low 42.0-54.0 [facility] Comment on above: Performed By: #### C BC #### [facility] [address] [place] [address] Dr. Bruce Nicholas Hemoglobin (Bld) [Mass/Vol] 11.7 g/dL Critically low 14.0-18.0 [facility] Comment on above: Performed By: #### C BC #### [facility] [address] [place] [address] Dr. Bruce Nicholas IG # 0.03 10e3/ul Normal 0.00-0.03 [facility] Comment on above: Performed By: #### C BC #### [facility] [address] [place] [address] Dr. Bruce Nicholas IG % 0.4 % Normal 0.0-0.5 [facility] Comment on above: Performed By: #### C BC #### [facility] [address] [place] [address] Dr. Bruce Nicholas LYMPH # 0.7 103/ul Critically low 1.2-3.8 [facility] Comment on above: Performed By: #### C BC #### [facility] [address] [place] [address] Dr. Bruce Nicholas Lymphocytes/100 WBC (Bld) 9.9 % Critically low 20.5-60.0 [facility] Comment on above: Performed By: #### C BC #### [facility] [address] [place] [address] Dr. Bruce Nicholas MANUAL DIFF REQ NO Normal [facility] Comment on above: Performed By: #### C BC #### [facility] [address] [place] [address] Dr. Bruce Nicholas MCH (RBC) [Entitic mass] 27.3 pg Normal 25.9-34.0 [facility] Comment on above: Performed By: #### C BC #### [facility] [address] [place] [address] Dr. Bruce Nicholas MCHC (RBC) [Mass/Vol] 31.5 g/dL Normal 29.9-35.2 [facility] Comment on above: Performed By: #### C BC #### [facility] [address] [place] [address] Dr. Bruce Nicholas MCV (RBC) [Entitic vol] 86.5 fL Normal 80.0-94.0 [facility] Comment on above: Performed By: #### C BC #### [facility] [address] [place] [address] Dr. Bruce Nicholas MONO # 0.1 103/ul Critically low 0.3-0.8 [facility] Comment on above: Performed By: #### C BC #### [facility] [address] [place] [address] Dr. Bruce Nicholas Monocytes/100 WBC (Bld) 1.9 % Normal 1.7-12.0 [facility] Comment on above: Performed By: #### C BC #### [facility] [address] [place] [address] Dr. Bruce Nicholas NEUT # 6.0 103/ul Normal 1.4-6.5 [facility] Comment on above: Performed By: #### C BC #### [facility] [address] [place] [address] Dr. Bruce Nicholas Neutrophils/100 WBC (Bld) 87.8 % Critically high 43.0-75.0 [facility] Comment on above: Performed By: #### C BC #### [facility] [address] [address] [address] Bruce Nicholas Platelet mean volume (Bld) [Entitic vol] 12.4 fL Normal 9.5-13.5 [facility] Comment on above: Performed By: #### C BC #### [facility] [address] [address] [address] Bruce Nicholas PLT 186 103/ul Normal 150-450 [facility] Comment on above: Performed By: #### C BC #### [facility] [address] [address] [address] Bruce Nciholas RBC 4.29 106/ul Critically low 4.70-6.10 [facility] Comment on above: Performed By: #### C BC #### [facility] [address] [place] [address] Dr. Bruce Nicholas WBC 6.9 103/ul Normal 4.0-11.0 [facility] Comment on above: Performed By: #### C BC #### [facility] [address] [address] [address] Bruce Nicholas POINT OF CARE GLUCOSEon 10-19 Glucose [Mass/Vol] 139 mg/dL Critically high 74-106 [facility] Comment on above: Performed By: #### P OCGLUC #### [facility] [address] [place] [address] Dr. Bruce Nicholas Glucose [Mass/Vol] 129 mg/dL Critically high 74-106 [facility] Comment on above: Performed By: #### P OCGLUC #### [facility] [address] [place] [address] Dr. Bruce Nicholas Glucose [Mass/Vol] 128 mg/dL Critically high -106 [facility] Comment on above: Performed By: #### P OCGLUC #### [facility] [address] [place] [address] Dr. Bruce Nicholas PROF CHEM 8 (BAS METB)on Anion gap [Moles/Vol] 17.3 mmol/L Normal [facility] Comment on above: Performed By: #### C BC #### [facility] [address] [address] [address] Bruce Nicholas Calcium [Mass/Vol] 9.0 mg/dL Normal 8.5-10.1 [facility] Comment on above: Performed By: #### C BC #### [facility] [address] [address] [address] Bruce Nicholas Chloride [Moles/Vol] 107 mmol/L Normal 98-107 [facility] Comment on above: Performed By: #### C BC #### [facility] [address] [place] [address] Dr. Bruce Nicholas CO2 [Moles/Vol] 20.4 mmol/L Critically low 21.0-32.0 [facility] Comment on above: Performed By: #### C BC #### [facility] [address] [place] [address] Dr. Bruce Nicholas Creatinine [Mass/Vol] 1.12 mg/dL Normal 0.70-1.30 [facility] Comment on above: Performed By: #### C BC #### [facility] [address] [place] [address] Dr. Bruce Nicholas EGFR-AF MEXICAN >60 Normal >=60 [facility] Comment on above: Performed By: #### C BC #### [facility] [address] [place] [address] Dr. Bruce Nicholas EGFR-NON AF MEXICAN >60 Normal >=60 [facility] Comment on above: Performed By: #### C BC #### [facility] [address] [address] [address] Bruce Nicholas Glucose [Mass/Vol] 184 mg/dL Critically high 74-106 [facility] Comment on above: Performed By: #### C BC #### [facility] [address] [place] [address] Dr. Bruce Nicholas Potassium [Moles/Vol] 3.7 mmol/L Normal 3.5-5.1 [facility] Comment on above: Performed By: #### C BC #### [facility] [address] [place] [address] Dr. Bruce Nicholas Sodium [Moles/Vol] 141 mmol/L Normal 136-145 [facility] Comment on above: Performed By: #### C BC #### [facility] [address] [place] [address] Dr. Bruce Nicholas Urea nitrogen [Mass/Vol] 25.0 mg/dL Critically high 7.0-18.0 [facility] Comment on above: Performed By: #### C BC #### [facility] [address] [place] [address] Dr. Bruce Nicholas Urea nitrogen/Creatinine [Mass ratio] 22.3 mg/mg Normal [facility] Comment on above: Performed By: #### C BC #### [facility] [address] [place] [address] Dr. Bruce Nicholas BNPon 11-05-2022 Natriuretic peptide B (Bld) [Mass/Vol] 131.0 pg/mL Normal <=900.0 [facility] Comment on above: Performed By: #### C BC #### [facility] [address] [place] [address] Dr. Bruce Nicholas CARDIAC EAMON ADMITon 023 CK [Catalytic activity/Vol] 44 U/L Normal 39-308 [facility] Comment on above: Performed By: #### C BC #### [facility] [address] [place] [address] Dr. Bruce Nicholas CK.MB [Mass/Vol] 1.08 ng/mL Normal <=3.60 [facility] Comment on above: Performed By: #### C BC #### [facility] [address] [place] [address] Dr. Bruce Nicholas HSTROP 5.2 pg/mL Normal 4.0-76.1 [facility] Comment on above: Result Comment: CUT- OFF POINTS HAVE BEEN ESTABLISHED BASED ON THE FOURTH UNIVERSAL DEFINITIONS OF MYOCARDIAL INFARCTION. THE UPPER REFERENCE LIMIT (URL) OF TROPONIN, DEFINED THE 99TH PERCENTILE OF cTnI DISTRIBUTION IN A REFERENCE POPULATION, HAS BEEN CONFIRMED THE DECISION THRESHOLD FOR OH DIAGNOSIS. Performed By: #### C BC #### [facility] [address] [place] [address] Dr. Bruce Nicholas DAVID 57 ng/mL Normal 16-96 [facility] Comment on above: Performed By: #### C BC #### [facility] [address] [place] [address] Dr. Bruce Nicholas CBC AUTO DIFFon 11-05-2022 BASO # 0.0 103/ul Normal 0.0-0.1 [facility] Comment on above: Performed By: #### C BC #### [facility] [address] [place] [address] Dr. Bruce Nicholas Basophils/100 WBC (Bld) 0.6 % Normal 0.2-2.0 [facility] Comment on above: Performed By: #### C BC #### [facility] [address] [place] [address] Dr. Bruce Nicholas EO # 0.1 103/ul Normal 0.0-0.7 [facility] Comment on above: Performed By: #### C BC #### [facility] [address] [place] [address] Dr. Bruce Nicholas Eosinophils/100 WBC (Bld) 1.3 % Normal 0.9-7.0 [facility] Comment on above: Performed By: #### C BC #### [facility] [address] [place] [address] Dr. Bruce Nicholas Erythrocyte distribution width (RBC) [Ratio] 15.4 % Critically high 11.0-15.0 [facility] Comment on above: Performed By: #### C BC #### [facility] [address] [place] [address] Dr. Bruce Nicholas Hematocrit (Bld) [Volume fraction] 44.9 % Normal 42.0-54.0 [facility] Comment on above: Performed By: #### C BC #### [facility] [address] [place] [address] Dr. Bruce Nicholas Hemoglobin (Bld) [Mass/Vol] 14.0 g/dL Normal 14.0-18.0 [facility] Comment on above: Performed By: #### C BC #### [facility] [address] [place] [address] Dr. Bruce Nicholas IG # 0.02 10e3/ul Normal 0.00-0.03 [facility] Comment on above: Performed By: #### C BC #### [facility] [address] [place] [address] Dr. Bruce Nicholas IG % 0.3 % Normal 0.0-0.5 [facility] Comment on above: Performed By: #### C BC #### [facility] [address] [place] [address] Dr. Bruce Nicholas LYMPH # 2.3 103/ul Normal 1.2-3.8 [facility] Comment on above: Performed By: #### C BC #### [facility] [address] [place] [address] Dr. Bruce Nicholas Lymphocytes/100 WBC (Bld) 31.7 % Normal 20.5-60.0 [facility] Comment on above: Performed By: #### C BC #### [facility] [address] [place] [address] Dr. Bruce Nicholas MANUAL DIFF REQ NO Normal [facility] Comment on above: Performed By: #### C BC #### [facility] [address] [place] [address] Dr. Bruce Nicholas MCH (RBC) [Entitic mass] 27.3 pg Normal 25.9-34.0 [facility] Comment on above: Performed By: #### C BC #### [facility] [address] [place] [address] Dr. Bruce Nicholas MCHC (RBC) [Mass/Vol] 31.2 g/dL Normal 29.9-35.2 [facility] Comment on above: Performed By: #### C BC #### [facility] [address] [place] [address] Dr. Bruce Nicholas MCV (RBC) [Entitic vol] 87.5 fL Normal 80.0-94.0 [facility] Comment on above: Performed By: #### C BC #### [facility] [address] [place] [address] Dr. Bruce Nicholas MONO # 0.5 103/ul Normal 0.3-0.8 [facility] Comment on above: Performed By: #### C BC #### [facility] [address] [place] [address] Dr. Bruce Nicholas Monocytes/100 WBC (Bld) 7.6 % Normal 1.7-12.0 [facility] Comment on above: Performed By: #### C BC #### [facility] [address] [place] [address] Dr. Bruce Nicholas NEUT # 4.2 103/ul Normal 1.4-6.5 [facility] Comment on above: Performed By: #### C BC #### [facility] [address] [place] [address] Dr. Bruce Nicholas Neutrophils/100 WBC (Bld) 58.5 % Normal 43.0-75.0 [facility] Comment on above: Performed By: #### C BC #### [facility] [address] [place] [address] Dr. Bruce Nicholas Platelet mean volume (Bld) [Entitic vol] 12.6 fL Normal 9.5-13.5 [facility] Comment on above: Performed By: #### C BC #### [facility] [address] [place] [address] Dr. Bruce Nicholas PLT 211 103/ul Normal 150-450 [facility] Comment on above: Performed By: #### C BC #### [facility] [address] [place] [address] Dr. Bruce Nichoals RBC 5.13 106/ul Normal 4.70-6.10 [facility] Comment on above: Performed By: #### C BC #### [facility] [address] [place] [address] Dr. Bruce Nicholas WBC 7.1 103/ul Normal 4.0-11.0 [facility] Comment on above: Performed By: #### C BC #### [facility] [address] [place] [address] Dr. Bruce Nicholas CULTURE BLOODon 11-05-2022 Microscopic examination of blood, culture Culture Observations: NO GROWTH AT 5 DAYS. Normal [facility] Comment on above: Performed By: #### C VDTBH #### [facility] [address] [address] [address] Bruce Nicholas Microscopic examination of blood, culture Culture Observations: NO GROWTH AT 5 DAYS. Normal [facility] Comment on above: Performed By: #### B [id number] #### [facility] [address] [address] [address] Bruce Nicholas Covid-19 PCR ([facility])on 10-19 SARS-CoV-2 (COVID-19) RNA KELLIE+probe Ql (Unsp spec) Not detected Normal NOT DETECTED [facility] Comment on above: Result Comment: When [...] for this test is supported by the [place] of [employer] and Human Service's declaration that [...] used). Performed By: #### C VDTBH #### [facility] [address] [place] [address] Dr. Bruce Nicholas INFLUENZA A AND B AGon 11-05 INFLUANEGH SEE BELOW Normal [facility] Comment on above: Result Comment: Nega tive for Flu A protein angiten. Infection due to Flu A cannot be ruled out. Flu A angiten in the sample may be below the detection limit of the test. Performed By: #### C BC #### [facility] [address] [address] [address] Bruce Nicholas INFLUBNEG SEE BELOW Normal [facility] Comment on above: Result Comment: Nega tive for Flu B protein antigen. Infection due to Flu B cannot be ruled out. Flu B antigen in the sample may be below the detection limit of the test. Performed By: #### C BC #### [facility] [address] [place] [address] Dr. Bruce Nicholas INFLUENZA A AG Negative Normal NEGATIVE SEE COMMENT [facility] Comment on above: Performed By: #### C BC #### [facility] [address] [place] [address] Dr. Bruce Nicholas INFLUENZA B AG Negative Normal NEGATIVE SEE COMMENT [facility] Comment on above: Performed By: #### C BC #### [facility] [address] [place] [address] Dr. Bruce Nicholas POINT OF CARE GLUCOSEon 10-19 Glucose [Mass/Vol] 190 mg/dL Critically high [address] [place] [address] Comment on above: Performed By: #### P OCGLUC #### [facility] [address] [place] [address] Dr. Bruce Nicholas Glucose [Mass/Vol] 129 mg/dL Critically high [address] [place] [address] Comment on above: Performed By: #### C VDTBH #### [facility] [address] [place] [address] Dr. Bruce Nicholas Glucose [Mass/Vol] 110 mg/dL Critically high [address] [place] [address] Comment on above: Performed By: #### C BC #### [facility] [address] [place] [address] Dr. Bruce Nicholas PROF CHEM 8 (BAS METB)on Anion gap [Moles/Vol] 16.0 mmol/L Normal [facility] Comment on above: Performed By: #### C BC #### [facility] [address] [place] [address] Dr. Bruce Nicholas Calcium [Mass/Vol] 9.4 mg/dL Normal 8.5-10.1 [facility] Comment on above: Performed By: #### C BC #### [facility] [address] [place] [address] Dr. Bruce Nicholas Chloride [Moles/Vol] 106 mmol/L Normal 98-107 [facility] Comment on above: Performed By: #### C BC #### [facility] [address] [address] [address] Bruce Nicholas CO2 [Moles/Vol] 25.2 mmol/L Normal 21.0-32.0 [facility] Comment on above: Performed By: #### C BC #### [facility] [address] [address] [address] Bruce Nicholas Creatinine [Mass/Vol] 1.09 mg/dL Normal 0.70-1.30 [facility] Comment on above: Performed By: #### C BC #### [facility] [address] [place] [address] Dr. Bruce Nicholas EGFR-AF MEXICAN >60 Normal >=60 [facility] Comment on above: Performed By: #### C BC #### [facility] [address] [address] [address] Bruce Nicholas EGFR-NON AF MEXICAN >60 Normal >=60 [facility] Comment on above: Performed By: #### C BC #### [facility] [address] [address] [address] Bruce Nicholas Glucose [Mass/Vol] 107 mg/dL Critically high 74-106 [facility] Comment on above: Performed By: #### C BC #### [facility] [address] [place] [address] Dr. Bruce Nicholas Potassium [Moles/Vol] 3.2 mmol/L Critically low 3.5-5.1 [facility] Comment on above: Performed By: #### C BC #### [facility] [address] [address] [address] Bruce Nicholas Sodium [Moles/Vol] 144 mmol/L Normal 136-145 [facility] Comment on above: Performed By: #### C BC #### [facility] [address] [place] [address] Dr. Bruce Nicholas Urea nitrogen [Mass/Vol] 20.0 mg/dL Critically high 7.0-18.0 [facility] Comment on above: Performed By: #### C BC #### [facility] [address] [place], [place] [address] Dr. Bruce Nicholas Urea nitrogen/Creatinine [Mass ratio] 18.3 mg/mg Normal [facility] Comment on above: Performed By: #### C BC #### [facility] [address] [place], [place] [address] Dr. Bruce Nicholas XR CHEST 1 Von [...] LIZETH MCDONOUGH Date: 2022-11-05 08:05 Normal [facility] CT LSPINE WO CONon [address] CT [...] DON MURRAY Date: 2022-10-09 13:29 Normal [facility] POINT OF CARE GLUCOSEon 12-2 Glucose [Mass/Vol] 81 mg/dL Normal 74-106 [facility] Comment on above: Performed By: #### C VDTB #### [facility] [address] [address] [address] Bruce Nicholas Glucose [Mass/Vol] 69 mg/dL Critically low 74-106 [facility] Comment on above: Performed By: #### C BC #### [facility] [address] [address] [address] Bruce Nicholas XR MYELOGRAM LSPINE EXPon [...] by: DON MURRAY Date: 2022-10-08 11:11 Normal [facility] COVID-19on 02-18-2022 SARS-CoV-2 (COVID-19) RNA KELLIE+probe Ql (Unsp spec) Not detected Normal NOT DETECTED [facility] Comment on above: Result Comment: Martinai kaelyn NAAT: Negative results should be treated as [...] authorized laboratories. Fact sheet for Healthcare Providers: https://www.fda.gov/media/226665/download Fact sheet for Patients: https://www.fda.gov/media/060636/download METHODOLOGY: Isothermal Nucleic Acid Amplification Performed By: #### C OVPC #### [facility] [address] [place] [address] COVID-19, Rapidon 02-18-2022 SARS-CoV-2 (COVID-19) RNA KELLIE+probe Ql (Unsp spec) Not detected NOT DETECTED [facility] Comment on above: Rapid NAAT: Negative [...] authorized laboratories. Fact sheet for Healthcare Providers: https://www.fda.gov/media/751059/download Fact sheet for Patients: https://www.fda.gov/media/839696/download METHODOLOGY: Isothermal Nucleic Acid Amplification Performed at [facility] [address] GLUCOSE POCon 02-18-2022 Glucose [Mass/Vol] 100 mg/dL Normal 70-108 [facility] Comment on above: Performed By: #### P OCGL #### [address] [address] Glucose [Mass/Vol] 107 mg/dL Normal 70-108 [facility] Comment on above: Performed By: #### P OCGL #### [address] [address] POCT glucoseon 02-18-2022 Glucose [Mass/Vol] 100 mg/dL 70 - 108 mg/dl [facility] Comment on above: Performed at [facility] [address] [place] [address] [facility] Glucose [Mass/Vol] 107 mg/dL 70 - 108 mg/dl [facility] Comment on above: Performed at [facility] [address] [place] [address] [facility] GLUCOSE POCon 02-17-2022 Glucose [Mass/Vol] 90 mg/dL Normal 70-108 [facility] Comment on above: Performed By: #### C BCND, PT, APTT, BMP, ANION, EGFR1 #### [address] [address] Glucose [Mass/Vol] 88 mg/dL Normal 70-108 [facility] Comment on above: Performed By: #### P OCGL #### [address] [address] Glucose [Mass/Vol] 99 mg/dL Normal 70-108 [facility] Comment on above: Performed By: #### P OCGL #### [address] [address] POCT glucoseon 02-17-2022 Glucose [Mass/Vol] 90 mg/dL 70 - 108 mg/dl [facility] Comment on above: Performed at [facility] [address] [place] [address] [facility] Glucose [Mass/Vol] 88 mg/dL 70 - 108 mg/dl [facility] Comment on above: Performed at [facility] [address] [place] [address] [facility] Glucose [Mass/Vol] 99 mg/dL 70 - 108 mg/dl [facility] Comment on above: Performed at [facility] [address] [place] [address] [facility] GLUCOSE POCon 02-16-2022 Glucose [Mass/Vol] 116 mg/dL High 70-108 [facility] Comment on above: Performed By: #### P OCGL ####[facility] [address] [place] [address] Glucose [Mass/Vol] 121 mg/dL High 70-108 [facility] Comment on above: Performed By: #### P OCGL #### [facility] [address] [place] [address] Glucose [Mass/Vol] 89 mg/dL Normal 70-108 [facility] Comment on above: Performed By: #### C BCND, PT, APTT, BMP, ANION, EGFR1 #### [facility] [address] [place] [address] Glucose [Mass/Vol] 95 mg/dL Normal 70-108 [facility] Comment on above: Performed By: #### C BCND, PT, APTT, BMP, ANION, EGFR1 #### [facility] [address] [place] [address] Glucose [Mass/Vol] 85 mg/dL Normal 70-108 [facility] Comment on above: Performed By: #### C BCND, PT, APTT, BMP, ANION, EGFR1 #### [address] [address] POCT Glucoseon 02-16-2022 Glucose [Mass/Vol] 121 mg/dL High 70 - 108 mg/dl [facility] Comment on above: Performed at [facility] [address] [place] [address] Interpretation and review of laboratory results Abnormal [facility] POCT glucoseon 02-16-2022 Glucose [Mass/Vol] 116 mg/dL High 70 - 108 mg/dl [facility] Comment on above: Performed at [facility] [address] [place] [address] Interpretation and review of laboratory results Abnormal [facility] Glucose [Mass/Vol] 89 mg/dL 70 - 108 mg/dl [facility] Comment on above: Performed at [facility] [address] [place] [address] [facility] Glucose [Mass/Vol] 95 mg/dL 70 - 108 mg/dl [facility] Comment on above: Performed at [facility] [address] [place] [address] [facility] Glucose [Mass/Vol] 85 mg/dL 70 - 108 mg/dl [facility] Comment on above: Performed at [facility] [address] [place] [address] [facility] ANION GAPon 02-15-2022 Anion gap [Moles/Vol] 8.0 mmol/L Normal 8.0-16.0 [facility] Comment on above: Result Comment: ANIO N GAP = Sodium -(Chloride + CO2) Performed By: #### C BCND, BMP, ANION, EGFR1 ####[facility] adjust [address] [place] [address] Anion Gapon 02-15-2022 Anion gap [Moles/Vol] 8.0 mmol/L 8.0 - 16.0 meq/L [facility] Comment on above: ANION GAP = Sodium - (Chloride + CO2) Performed at [facility] [address] [place] [address] BASIC METABOL PANELon 2021 Calcium [Mass/Vol] 8.1 mg/dL Low 8.5-10.5 [facility] Comment on above: Performed By: #### P OCGL #### [facility] [address] [place] [address] Chloride [Moles/Vol] 105 mmol/L Normal 98-111 [facility] Comment on above: Performed By: #### P OCGL #### [facility] [address] [place] [address] CO2 [Moles/Vol] 25 mmol/L Normal 23-33 [facility] Comment on above: Performed By: #### P OCGL #### [facility] [address] [place] [address] Creatinine [Mass/Vol] 1.0 mg/dL Normal 0.4-1.2 [facility] Comment on above: Performed By: #### P OCGL #### [facility] [address] [place] [address] Glucose [Mass/Vol] 101 mg/dL Normal 70-108 [facility] Comment on above: Performed By: #### P OCGL #### [facility] [address] [place] [address] Potassium [Moles/Vol] 3.9 mmol/L Normal 3.5-5.2 [facility] Comment on above: Performed By: #### P OCGL #### [facility] Laboratories [address] [place] [address] Sodium [Moles/Vol] 138 mmol/L Normal 135-145 [facility] Comment on above: Performed By: #### P OCGL #### [facility] [address] [place] [address] Urea nitrogen [Mass/Vol] 19 mg/dL Normal 7-22 [facility] Comment on above: Performed By: #### P OCGL #### [facility] [address] [place] [address] Basic Metabolic Panelon 01-19 Calcium [Mass/Vol] 8.1 mg/dL Low 8.5 - 10. 5 mg/dL [facility] [employer] Comment on above: Performed at [facility] [address] [place] [address] Chloride [Moles/Vol] 105 mmol/L 98 - 11 1 meq/L [facility] [employer] [facility] CO2 [Moles/Vol] 25 mmol/L 23 - 33 meq/L [facility] Creatinine [Mass/Vol] 1 mg/dL 0.4 - 1.2 mg/dL [facility] Glucose [Mass/Vol] 101 mg/dL 70 - 108 mg/dL [facility] Potassium [Moles/Vol] 3.9 mmol/L 3.5 - 5.2 meq/L [facility] Sodium [Moles/Vol] 138 mmol/L 135 - 145 meq/L [facility] [employer] Urea nitrogen (BldV) [Mass/Vol] 19 mg/dL 7 - 22 mg/dL [facility] CBCon 02-15-2022 Erythrocyte distribution width (RBC) [Ratio] 13.3 % 11.5 - 14.5 % [facility] Erythrocyte distribution width (RBC) [Ratio] 46.9 fL High 35.0 - 45.0 fL [facility] Hematocrit (Bld) [Volume fraction] 30.1 % Low 42.0 - 52.0 % [facility] Hemoglobin.gastrointes tinal spec 1 Ql (Stl) 9.5 Low [facility] Interpretation and review of laboratory results Abnormal [facility] MCH (RBC) [Entitic mass] 30.4 pg 26.0 - 33.0 pg [facility] MCHC (RBC) [Mass/Vol] 31.6 g/dL Low [facility] MCV (RBC) [Entitic vol] 96.2 fL High 80.0 - 94.0 fL [facility] Platelet mean volume (Bld) [Entitic vol] 11.7 fL 9.4 - 12.4 fL [facility] Comment on above: Performed at [facility] [address] [place] [address] Platelets (Bld) [#/Vol] 159 10*3/uL [facility] RBC (Bld) [#/Vol] 3.13 10*6/uL Low [facility] WBC (Bld) [#/Vol] 4.3 10*3/uL Low [facility] CBC NO DIFFERENTIALon 2021 Erythrocyte distribution width (RBC) [Ratio] 13.3 % Normal 11.5-14.5 [facility] Comment on above: Performed By: #### P OCGL #### [facility] [address] [place] [address] Hematocrit (Bld) [Volume fraction] 30.1 % Low 42.0-52.0 [facility] Comment on above: Performed By: #### P OCGL #### [facility] [address] [place] [address] Hemoglobin (Bld) [Mass/Vol] 9.5 g/dL Low 14.0-18.0 [facility] Comment on above: Performed By: #### P OCGL #### [facility] [address] [place] [address] MCH (RBC) [Entitic mass] 30.4 pg Normal 26.0-33.0 [facility] Comment on above: Performed By: #### P OCGL #### [facility] [address] [place] [address] MCHC (RBC) [Mass/Vol] 31.6 g/dL Low 32.2-35.5 [facility] Comment on above: Performed By: #### P OCGL #### [facility] [address] [place] [address] MCV (RBC) [Entitic vol] 96.2 fL High 80.0-94.0 [facility] Comment on above: Performed By: #### P OCGL #### [facility] [address] [place] [address] PLATELET 159 thou/mm3 Normal 130-400 [facility] Comment on above: Performed By: #### P OCGL #### [facility] [address] [place] [address] Platelet mean volume (Bld) [Entitic vol] 11.7 fL Normal 9.4-12.4 [facility] Comment on above: Performed By: #### P OCGL #### [facility] [address] [place] [address] RBC 3.13 mill/mm3 Low 4.70-6.10 [facility] Comment on above: Performed By: #### P OCGL #### [place] [address] RDW-SD 46.9 fL High 35.0-45.0 [facility] Comment on above: Performed By: #### P OCGL #### [facility] [address] [place] [address] WBC 4.3 thou/mm3 Low 4.8-10.8 [facility] Comment on above: Performed By: #### P OCGL #### [place] [address] GFR, ESTIMATEDon 02-15-2022 GFR/1.73 sq M.predicted MDRD (S/P/Bld) [Vol rate/Area] 75 mL/min/{1.73_m2} Abnormal [facility] Comment on above: Result Comment: Stag skyla Description GFR, ml/min/1.73 m2 - At [...] By: #### C BCND, BMP, ANION, EGFR1 ####[facility] [address] [place] [address] GLUCOSE POCon 02-15-2022 Glucose [Mass/Vol] 85 mg/dL Normal 70-108 [facility] Comment on above: Performed By: #### P OCGL #### [facility] [address] [place] [address] Glucose [Mass/Vol] 98 mg/dL Normal 70-108 [facility] Comment on above: Performed By: #### C BCND, PT, APTT, BMP, ANION, EGFR1 #### [facility] [address] [place] [address] Glucose [Mass/Vol] 101 mg/dL Normal 70-108 [facility] Comment on above: Performed By: #### P OCGL ####[facility] [address] [place] [address] Glucose [Mass/Vol] 89 mg/dL Normal 70-108 [facility] Comment on above: Performed By: #### P OCGL #### [facility] [address] [place] [address] Glomerular Filtration Rate, Estimatedon 02-15-2022 GFR/1.73 sq M.predicted MDRD (S/P/Bld) [Vol rate/Area] 75 mL/min/{1.73_m2} Abnormal ml/min/1.[address] [place] [address] Comment on above: Stage Description GF R, [...] Vol. 139 (2) pg 137-147. Performed at [facility] [address] [place] [address] No Panel Informationon 02-15 Interpretation and review of laboratory results Abnormal [facility] POCT glucoseon 02-15-2022 Glucose [Mass/Vol] 85 mg/dL 70 - 108 mg/dl [facility] Comment on above: Performed at [facility] [address] [place] [address] Glucose [Mass/Vol] 98 mg/dL 70 - 108 mg/dl [facility] Comment on above: Performed at [facility] [address] [place] [id number] [place] [address] Glucose [Mass/Vol] 101 mg/dL 70 - 108 mg/dl [facility] Comment on above: Performed at [facility] [address] [place] [address] Glucose [Mass/Vol] 89 mg/dL 70 - 108 mg/dl [facility] Comment on above: Performed at [facility] [address] [place] [id number] [place] [address] GLUCOSE POCon 02-14-2022 Glucose [Mass/Vol] 90 mg/dL Normal 70-108 [facility] Comment on above: Performed By: #### C BCND, PT, APTT, BMP, ANION, EGFR1 #### [facility] [address] [place] [address] Glucose [Mass/Vol] 100 mg/dL Normal 70-108 [facility] Comment on above: Performed By: #### C BCND, PT, APTT, BMP, ANION, EGFR1 #### [facility] [address] [place] [address] Glucose [Mass/Vol] 86 mg/dL Normal 70-108 [facility] Comment on above: Performed By: #### C BCND, PT, APTT, BMP, ANION, EGFR1 #### [facility] [address] [place] [address] Glucose [Mass/Vol] 94 mg/dL Normal 70-108 [facility] Comment on above: Performed By: #### P OCGL ####[facility] [address] [place] [address] Glucose [Mass/Vol] 79 mg/dL Normal 70-108 [facility] Comment on above: Performed at [facility] [address] [place] [address] Performed By: #### P OCGL #### [address] [address] No Panel Informationon 02-14 [facility] POCT glucoseon 02-14-2022 Glucose [Mass/Vol] 90 mg/dL 70 - 108 mg/dl [facility] Comment on above: Performed at [facility] [address] [place] [id number] [place] [address] Glucose [Mass/Vol] 100 mg/dL 70 - 108 mg/dl [facility] Comment on above: Performed at [facility] [address] [place] [address] [facility] Glucose [Mass/Vol] 86 mg/dL 70 - 108 mg/dl [facility] Comment on above: Performed at [facility] [address] [place] [address] Glucose [Mass/Vol] 94 mg/dL 70 - 108 mg/dl [facility] Comment on above: Performed at [facility] [address] [place] [address] GLUCOSE POCon 02-13-2022 Glucose [Mass/Vol] 96 mg/dL Normal 70-108 [facility] Comment on above: Performed By: #### P OCGL #### [address] [address] Glucose [Mass/Vol] 85 mg/dL Normal 70-108 [facility] Comment on above: Performed By: #### C BCND, PT, APTT, BMP, ANION, EGFR1 #### [address] [address] Glucose [Mass/Vol] 95 mg/dL Normal 70-108 [facility] Comment on above: Performed By: #### C BCND, PT, APTT, BMP, ANION, EGFR1 #### [address] [address] Glucose [Mass/Vol] 82 mg/dL Normal 70-108 [facility] Comment on above: Performed By: #### C BCND, PT, APTT, BMP, ANION, EGFR1 #### [address] [address] POCT glucoseon 02-13-2022 Glucose [Mass/Vol] 96 mg/dL 70 - 108 mg/dl [facility] Comment on above: Performed at [facility] [address] [place] [address] Glucose [Mass/Vol] 85 mg/dL 70 - 108 mg/dl [facility] Comment on above: Performed at [facility] [address] [place] [address] Glucose [Mass/Vol] 95 mg/dL 70 - 108 mg/dl [facility] Comment on above: Performed at [facility] [address] [place] [address] Glucose [Mass/Vol] 82 mg/dL 70 - 108 mg/dl [facility] Comment on above: Performed at [facility] [address] [place] [address] ANION GAPon 02-12-2022 Anion gap [Moles/Vol] 9.0 mmol/L Normal 8.0-16.0 [facility] Comment on above: Result Comment: ANIO N GAP = Sodium -(Chloride + CO2) Performed By: #### P OCGL #### [facility] [address] [place] [address] Anion Gapon 02-12-2022 Anion gap [Moles/Vol] 9.0 mmol/L 8.0 - 16.0 meq/L [facility] Comment on above: ANION GAP = Sodium - (Chloride + CO2) Performed at [facility] [address] [place] [address] BASIC METABOL PANELon 2021 Calcium [Mass/Vol] 8.2 mg/dL Low 8.5-10.5 [facility] Comment on above: Performed By: #### P OCGL #### [facility] [address] [place] [address] Chloride [Moles/Vol] 105 mmol/L Normal 98-111 [facility] Comment on above: Performed By: #### P OCGL #### [facility] [address] [place] [address] CO2 [Moles/Vol] 24 mmol/L Normal 23-33 [facility] Comment on above: Performed By: #### P OCGL #### [facility] [address] [place] [address] Creatinine [Mass/Vol] 0.9 mg/dL Normal 0.4-1.2 [facility] Comment on above: Performed By: #### P OCGL #### [facility] [address] [place] [address] Glucose [Mass/Vol] 66 mg/dL Low 70-108 [facility] Comment on above: Performed By: #### P OCGL #### [facility] [address] [place] [address] Potassium [Moles/Vol] 3.9 mmol/L Normal 3.5-5.2 [facility] Comment on above: Performed By: #### P OCGL #### [facility] [address] [place] [address] Sodium [Moles/Vol] 138 mmol/L Normal 135-145 [facility] Comment on above: Performed By: #### P OCGL #### [facility] [address] [place] [address] Urea nitrogen [Mass/Vol] 17 mg/dL Normal 7-22 [facility] Comment on above: Performed By: #### P OCGL #### [facility] [address] [place] [address] Basic Metabolic Panelon 01-18 Calcium [Mass/Vol] 8.2 mg/dL Low 8.5 - 10. 5 mg/dL [facility] [employer] Comment on above: Performed at [facility] [address] [place] [address] Chloride [Moles/Vol] 105 mmol/L 98 - 11 1 meq/L [facility] CO2 [Moles/Vol] 24 mmol/L 23 - 33 meq/L [facility] Creatinine [Mass/Vol] 0.9 mg/dL 0.4 - 1.2 mg/dL [facility] Glucose [Mass/Vol] 66 mg/dL Low 70 - 108 mg/dL [facility] Potassium [Moles/Vol] 3.9 mmol/L 3.5 - 5.2 meq/L [facility] Sodium [Moles/Vol] 138 mmol/L 135 - 145 meq/L [facility] Urea nitrogen (BldV) [Mass/Vol] 17 mg/dL 7 - 22 mg/dL [facility] CBCon 02-12-2022 Erythrocyte distribution width (RBC) [Ratio] 13.8 % 11.5 - 14.5 % [facility] Erythrocyte distribution width (RBC) [Ratio] 49.3 fL High 35.0 - 45.0 fL [facility] Hematocrit (Bld) [Volume fraction] 32.0 % Low 42.0 - 52.0 % [facility] Hemoglobin.gastrointes tinal spec 1 Ql (Stl) 9.8 Low [facility] th Interpretation and review of laboratory results Abnormal [facility] MCH (RBC) [Entitic mass] 29.8 pg 26.0 - 33.0 pg [facility] MCHC (RBC) [Mass/Vol] 30.6 g/dL Low [facility] MCV (RBC) [Entitic vol] 97.3 fL High 80.0 - 94.0 fL [facility] Platelet mean volume (Bld) [Entitic vol] 12.3 fL 9.4 - 12.4 fL [facility] Comment on above: Performed at [facility] [address] [place] [address] Platelets (Bld) [#/Vol] 142 10*3/uL [facility] RBC (Bld) [#/Vol] 3.29 10*6/uL Low [facility] WBC (Bld) [#/Vol] 5.1 10*3/uL [facility] CBC NO DIFFERENTIALon 2021 Erythrocyte distribution width (RBC) [Ratio] 13.8 % Normal 11.5-14.5 [facility] Comment on above: Performed By: #### P OCGL #### [facility] [address] [place] [address] Hematocrit (Bld) [Volume fraction] 32.0 % Low 42.0-52.0 [facility] Comment on above: Performed By: #### P OCGL #### [facility] [address] [place] [address] Hemoglobin (Bld) [Mass/Vol] 9.8 g/dL Low 14.0-18.0 [facility] Comment on above: Performed By: #### P OCGL #### [facility] [address] [place] [address] MCH (RBC) [Entitic mass] 29.8 pg Normal 26.0-33.0 [facility] Comment on above: Performed By: #### P OCGL #### [address] [address] MCHC (RBC) [Mass/Vol] 30.6 g/dL Low 32.2-35.5 [facility] Comment on above: Performed By: #### P OCGL #### [address] [address] MCV (RBC) [Entitic vol] 97.3 fL High 80.0-94.0 [facility] Comment on above: Performed By: #### P OCGL #### [address] [address] PLATELET 142 thou/mm3 Normal 130-400 [facility] Comment on above: Performed By: #### P OCGL #### [address] [address] Platelet mean volume (Bld) [Entitic vol] 12.3 fL Normal 9.4-12.4 [facility] Comment on above: Performed By: #### P OCGL #### [address] [address] RBC 3.29 mill/mm3 Low 4.70-6.10 [facility] Comment on above: Performed By: #### P OCGL #### [address] [address] RDW-SD 49.3 fL High 35.0-45.0 [facility] Comment on above: Performed By: #### P OCGL #### [address] [address] WBC 5.1 thou/mm3 Normal 4.8-10.8 [facility] Comment on above: Performed By: #### P OCGL #### [address] [address] GFR, ESTIMATEDon 02-12-2022 GFR/1.73 sq M.predicted MDRD (S/P/Bld) [Vol rate/Area] 85 mL/min/{1.73_m2} Abnormal [facility] Comment on above: Result Comment: Lilliam crum [...] 137-147. Performed By: #### P OCGL #### [facility] [address] [place] [address] GLUCOSE POCon 02-12-2022 Glucose [Mass/Vol] 95 mg/dL Normal 70-108 [facility] Comment on above: Performed By: #### P OCGL #### [facility] [address] [place] [address] Glucose [Mass/Vol] 84 mg/dL Normal 70-108 [facility] Comment on above: Performed By: #### C BCND, PT, APTT, BMP, ANION, EGFR1 #### [facility] [address] [place] [address] Glucose [Mass/Vol] 86 mg/dL Normal 70-108 [facility] Comment on above: Performed By: #### P OCGL ####[facility] adjust [id number] [place] [address] Glucose [Mass/Vol] 90 mg/dL Normal 70-108 [facility] Comment on above: Performed By: #### P OCGL ####[facility] adjust [id number] [place] [address] Glomerular Filtration Rate, Estimatedon 02-12-2022 GFR/1.73 sq M.predicted MDRD (S/P/Bld) [Vol rate/Area] 85 mL/min/{1.73_m2} Abnormal ml/min/1.[address] [place] [address] Comment on above: Stage Description GF R, [...] Vol. 139 (2) pg 137-147. Performed at [facility] [address] [place] [address] No Panel Informationon 02-12 Interpretation and review of laboratory results Abnormal [facility] POCT glucoseon 02-12-2022 Glucose [Mass/Vol] 95 mg/dL 70 - 108 mg/dl [facility] Comment on above: Performed at [facility] [address] [place] [address] Glucose [Mass/Vol] 84 mg/dL 70 - 108 mg/dl [facility] Comment on above: Performed at [facility] [address] [place] [address] Glucose [Mass/Vol] 86 mg/dL 70 - 108 mg/dl [facility] Comment on above: Performed at [facility] [address] [place] [address] Glucose [Mass/Vol] 90 mg/dL 70 - 108 mg/dl [facility] Comment on above: Performed at [facility] [address] [place] [address] CBCon 02-11-2022 Erythrocyte distribution width (RBC) [Ratio] 13.7 % 11.5 - 14.5 % [facility] Erythrocyte distribution width (RBC) [Ratio] 48.8 fL High 35.0 - 45.0 fL [facility] Hematocrit (Bld) [Volume fraction] 31.5 % Low 42.0 - 52.0 % [facility] Hemoglobin.gastrointes tinal spec 1 Ql (Stl) 9.8 Low [facility] Interpretation and review of laboratory results Abnormal [facility] MCH (RBC) [Entitic mass] 30.2 pg 26.0 - 33.0 pg [facility] MCHC (RBC) [Mass/Vol] 31.1 g/dL Low [facility] MCV (RBC) [Entitic vol] 97.2 fL High 80.0 - 94.0 fL [facility] Platelet mean volume (Bld) [Entitic vol] 12.8 fL High 9.4 - 12.4 fL [facility] Comment on above: Performed at [facility] [address] [place] [address] Platelets (Bld) [#/Vol] 122 10*3/uL [facility] RBC (Bld) [#/Vol] 3.24 10*6/uL [facility] WBC (Bld) [#/Vol] 5.7 10*3/uL [facility] CBC NO DIFFERENTIALon 2021 Erythrocyte distribution width (RBC) [Ratio] 13.7 % Normal 11.5-14.5 [facility] Comment on above: Performed By: #### P OCGL #### [address] [address] Hematocrit (Bld) [Volume fraction] 31.5 % Low 42.0-52.0 [facility] Comment on above: Performed By: #### P OCGL #### [address] [address] Hemoglobin (Bld) [Mass/Vol] 9.8 g/dL Low 14.0-18.0 [facility] Comment on above: Performed By: #### P OCGL #### [address] [address] MCH (RBC) [Entitic mass] 30.2 pg Normal 26.0-33.0 [facility] Comment on above: Performed By: #### P OCGL #### [address] [address] MCHC (RBC) [Mass/Vol] 31.1 g/dL Low 32.2-35.5 [facility] Comment on above: Performed By: #### P OCGL #### [address] [address] MCV (RBC) [Entitic vol] 97.2 fL High 80.0-94.0 [facility] Comment on above: Performed By: #### P OCGL #### [address] [address] PLATELET 122 thou/mm3 Low 130-400 [facility] Comment on above: Performed By: #### P OCGL #### [address] [address] Platelet mean volume (Bld) [Entitic vol] 12.8 fL High 9.4-12.4 [facility] Comment on above: Performed By: #### P OCGL #### [facility] [employer] [address] [place] [address] RBC 3.24 mill/mm3 Low 4.70-6.10 [facility] Comment on above: Performed By: #### P OCGL #### [facility] [employer] [address] [place] [address] RDW-SD 48.8 fL High 35.0-45.0 [facility] Comment on above: Performed By: #### P OCGL #### [facility] [employer] [address] [place] [address] WBC 5.7 thou/mm3 Normal 4.8-10.8 [facility] Comment on above: Performed By: #### P OCGL #### [facility] [employer] [address] [place] [address] GLUCOSE POCon 02-11-2022 Glucose [Mass/Vol] 116 mg/dL High 70-108 [facility] Comment on above: Performed By: #### P OCGL #### [facility] [employer] [address] [place] [address] Glucose [Mass/Vol] 87 mg/dL Normal 70-108 [facility] Comment on above: Performed By: #### C BCND, PT, APTT, BMP, ANION, EGFR1 #### [facility] [address] [address] Glucose [Mass/Vol] 90 mg/dL Normal 70-108 [facility] Comment on above: Performed By: #### P OCGL #### [facility] [address] [place] [address] Glucose [Mass/Vol] 112 mg/dL High 70-108 [facility] Comment on above: Performed By: #### C BCND, PT, APTT, BMP, ANION, EGFR1 #### [facility] [address] [place] [address] POCT Glucoseon 02-11-2022 Glucose [Mass/Vol] 87 mg/dL 70 - 108 mg/dl [facility] Comment on above: Performed at [facility] [address] [place] [address] Glucose [Mass/Vol] 90 mg/dL 70 - 108 mg/dl [facility] Comment on above: Performed at [facility] [facility] [address] [place] [address] Glucose [Mass/Vol] 112 mg/dL High 70 - 108 mg/dl [facility] Comment on above: Performed at [facility] [facility] [address] [place] [address] Interpretation and review of laboratory results Abnormal [facility] POCT glucoseon 02-11-2022 Glucose [Mass/Vol] 116 mg/dL High 70 - 108 mg/dl [facility] Comment on above: Performed at [facility] [facility] [address] [place] [address] Interpretation and review of laboratory results Abnormal [facility] VITAMIN B12 FOLATEon 022 Cobalamin (Vitamin B12) [Mass/Vol] 386 pg/mL Normal 211-911 [facility] Comment on above: Performed By: #### C BCND, PT, APTT, BMP, ANION, EGFR1 #### [facility] [address] [place] [address] FOLATE 7.5 ng/mL Normal 4.8-24.2 [facility] Comment on above: Performed By: #### C BCND, PT, APTT, BMP, ANION, EGFR1 #### [facility] [address] [place] [address] Vitamin B12 & Folateon 02-11 Cobalamin (Vitamin B12) [Mass/Vol] 386 pg/mL 211 - 911 pg/mL [facility] Folate 7.5 ng/mL 4.8 - 24.2 ng/mL [facility] Comment on above: Performed at [facility] [facility] [address] [place] [address] CORTISOLon 02-10-2022 CORTISOL SPECIMEN 60 Minute Normal [facility] Comment on above: Performed By: #### P OCGL #### [facility] [address] [place] [address] ECHO Complete 2D W Doppler W Coloron 02-10-2022 Transthoracic Echocardiography Report (TTE) Demographics Patient Name SUNNY Cox Gender Male MR # [id number] Race Ethnicity Room Number 0025 Date of Study 02/10/2022 Number Date of 1960 Referring Physician Bala Schrader MD Age 61 year(s) Non Clinical Advisor Lyn Prince [facility] Interpreting Beata Leahy MD Physician Procedure [...] A' Septal Velocity: (more content not included)... [facility] Armond Cota MD - 02/10/2022 Transthoracic Echocardiography Report (TTE) Demographics Patient Name SUNNY Cox Gender Male MR # [id number] Race Ethnicity Room Number 0025 Date of Study 02/10/2022 Number Date of 1960 Referring Physician Bala Schrader MD Age 61 year(s) Non Clinical Advisor Lyn Prince [facility] Interpreting Beata Leahy MD Physician Procedure [...] E/E' lateral: 7.08 MR Velocity: 463 cm/s [email or web address]?[id number]%3d%3d [employer] Phone: ECHO Complete 2D W Doppler W ColorOrdered By: Armond Cota on 02-10-2022 [employer] Phone: ECHOCARDIOGRAM COMPLETE 2D W DOPPLER W COLORon 02-10-2022 ECHOCARDIOGRAM COMPLETE 2D W DOPPLER W COLOR Transthoracic Echocardiography Report (TTE) Demographics Patient Name SUNNY Cox Gender Male MR # [id number] Race Ethnicity Room Number 0025 Date of Study 02/10/2022 Number Date of 1960 Referring Physician Bala Schrader MD Age 61 year(s) Non Clinical Advisor Lyn Prince RDCS Interpreting Beata Leahy MD [...] E/E' lateral: 7.08 MR Velocity: 463 cm/s [id number]%3d%3d Normal [facility] GLUCOSE POCon 02-10-2022 Glucose [Mass/Vol] 113 mg/dL High 70-108 [facility] Comment on above: Performed By: #### C BCND, PT, APTT, BMP, ANION, EGFR1 #### [facility] [address] [place] [address] Glucose [Mass/Vol] 110 mg/dL High 70-108 [facility] Comment on above: Performed By: #### P OCGL #### [facility] [address] [place] [address] Glucose [Mass/Vol] 136 mg/dL High 70-108 [facility] Comment on above: Performed By: #### C BCND, PT, APTT, BMP, ANION, EGFR1 #### [facility] [address] [place] [address] Glucose [Mass/Vol] 125 mg/dL High 70-108 [facility] Comment on above: Performed By: #### P OCGL ####[facility] [id number] [place] [address] POCT Glucoseon 02-10-2022 Glucose [Mass/Vol] 113 mg/dL High 70 - 108 mg/dl [facility] Comment on above: Performed at [facility] [address] [place] [address] Interpretation and review of laboratory results Abnormal [facility] Glucose [Mass/Vol] 110 mg/dL High 70 - 108 mg/dl [facility] Comment on above: Performed at [facility] [address] [place] [address] Interpretation and review of laboratory results Abnormal [facility] Glucose [Mass/Vol] 136 mg/dL High 70 - 108 mg/dl [facility] Comment on above: Performed at [facility] [address] [place] [address] Interpretation and review of laboratory results Abnormal [facility] Glucose [Mass/Vol] 125 mg/dL High 70 - 108 mg/dl [facility] Comment on above: Performed at [facility] [address] [place] [address] Interpretation and review of laboratory results Abnormal [facility] TSHon 02-10-2022 Interpretation and review of laboratory results Abnormal [facility] TSH Qn 0.354 m[IU]/L Low [facility] Comment on above: Performed at [facility] [address] [place] [address] TSH THIRD GENERATIONon 02-10 TSH THIRD GENERATION 0.354 uIU/mL Low 0.400-4 .20 0 [facility] Comment on above: Performed By: #### P OCGL #### [place] [address] CBC WITH DIFFERENTIALon 01-18 ABS BASOPHILS 0.0 thou/mm3 Normal 0.0-0.1 [facility] Comment on above: Performed By: #### C BCND, PT, APTT, BMP, ANION, EGFR1 #### [place] [address] ABS EOSINOPHILS 0.1 thou/mm3 Normal 0.0-0.4 [facility] Comment on above: Performed By: #### C BCND, PT, APTT, BMP, ANION, EGFR1 #### [place] [address] ABS IMMATURE GRANS (IG) 0.02 thou/mm3 Normal 0.00-0.07 [facility] Comment on above: Performed By: #### C BCND, PT, APTT, BMP, ANION, EGFR1 #### [place] [address] ABS LYMPHOCYTES 1.3 thou/mm3 Normal 1.0-4.8 [facility] Comment on above: Performed By: #### C BCND, PT, APTT, BMP, ANION, EGFR1 #### [place] [address] ABS MONOCYTES 0.6 thou/mm3 Normal 0.4-1.3 [facility] Comment on above: Performed By: #### C BCND, PT, APTT, BMP, ANION, EGFR1 #### [place] [address] ABS NEUTROPHILS 4.3 thou/mm3 Normal 1.8-7.7 [facility] Comment on above: Performed By: #### C BCND, PT, APTT, BMP, ANION, EGFR1 #### [address] [address] Basophils/100 WBC (Bld) 0.3 % Normal [facility] Comment on above: Performed By: #### C BCND, PT, APTT, BMP, ANION, EGFR1 #### [address] [address] Eosinophils/100 WBC (Bld) 1.4 % Normal [facility] Comment on above: Performed By: #### C BCND, PT, APTT, BMP, ANION, EGFR1 #### [address] [address] Erythrocyte distribution width (RBC) [Ratio] 13.3 % Normal 11.5-14.5 [facility] Comment on above: Performed By: #### C BCND, PT, APTT, BMP, ANION, EGFR1 #### [address] [address] Hematocrit (Bld) [Volume fraction] 34.3 % Low 42.0-52.0 [facility] Comment on above: Performed By: #### C BCND, PT, APTT, BMP, ANION, EGFR1 #### [address] [address] Hemoglobin (Bld) [Mass/Vol] 10.8 g/dL Low 14.0-18.0 [facility] Comment on above: Performed By: #### C BCND, PT, APTT, BMP, ANION, EGFR1 #### [address] [address] IMMATURE GRANS (IG) 0.3 % Normal [facility] Comment on above: Performed By: #### C BCND, PT, APTT, BMP, ANION, EGFR1 #### [address] [address] Lymphocytes/100 WBC (Bld) 20.2 % Normal [facility] Comment on above: Performed By: #### C BCND, PT, APTT, BMP, ANION, EGFR1 #### [address] [address] MCH (RBC) [Entitic mass] 30.2 pg Normal 26.0-33.0 [facility] Comment on above: Performed By: #### C BCND, PT, APTT, BMP, ANION, EGFR1 #### [facility] [address] [place] [address] MCHC (RBC) [Mass/Vol] 31.5 g/dL Low 32.2-35.5 [facility] Comment on above: Performed By: #### C BCND, PT, APTT, BMP, ANION, EGFR1 #### [address] [address] MCV (RBC) [Entitic vol] 95.8 fL High 80.0-94.0 [facility] Comment on above: Performed By: #### C BCND, PT, APTT, BMP, ANION, EGFR1 #### [address] [address] Monocytes/100 WBC (Bld) 9.5 % Normal [facility] Comment on above: Performed By: #### C BCND, PT, APTT, BMP, ANION, EGFR1 #### [address] [address] Neutrophils/100 WBC (Bld) 68.3 % Normal [facility] Comment on above: Performed By: #### C BCND, PT, APTT, BMP, ANION, EGFR1 #### [address] [address] NRBC 0 /100 wbc Normal [facility] Comment on above: Performed By: #### C BCND, PT, APTT, BMP, ANION, EGFR1 #### [address] [address] PLATELET 98 thou/mm3 Low 130-400 [facility] Comment on above: Performed By: #### C BCND, PT, APTT, BMP, ANION, EGFR1 #### [address] [address] Platelet mean volume (Bld) [Entitic vol] 12.9 fL High 9.4-12.4 [facility] Comment on above: Performed By: #### C BCND, PT, APTT, BMP, ANION, EGFR1 #### [facility] [address] [place] [address] RBC 3.58 mill/mm3 Low 4.70-6.10 [facility] Comment on above: Performed By: #### C BCND, PT, APTT, BMP, ANION, EGFR1 #### [place] [address] RDW-SD 47.0 fL High 35.0-45.0 [facility] Comment on above: Performed By: #### C BCND, PT, APTT, BMP, ANION, EGFR1 #### [facility] [address] [place] [address] WBC 6.3 thou/mm3 Normal 4.8-10.8 [facility] Comment on above: Performed By: #### C BCND, PT, APTT, BMP, ANION, EGFR1 #### [facility] [place] [address] CBC with Auto Differentialon 02-09-2022 Basophils (Bld) [#/Vol] 0.0 10*3/uL [facility] [employer] Basophils/100 WBC (Bld) 0.3 % [facility] [employer] Eosinophils Absolute 0.1 [facility] Eosinophils/100 WBC (Bld) 1.4 % [facility] Erythrocyte distribution width (RBC) [Ratio] 13.3 % 11.5 - 14.5 % [facility] Erythrocyte distribution width (RBC) [Ratio] 47 fL High 35.0 - 45.0 fL [facility] Hematocrit (Bld) [Volume fraction] 34.3 % Low 42.0 - 52.0 % [facility] Hemoglobin.gastrointes tinal spec 1 Ql (Stl) 10.8 Low [facility] th Immature Grans (Abs) 0.02 [facility] Immature granulocytes/100 WBC (Bld) 0.3 % [facility] Interpretation and review of laboratory results Abnormal [facility] [employer] Lymphocytes Absolute 1.3 [facility] Lymphocytes/100 WBC (Bld) 20.2 % [facility] MCH (RBC) [Entitic mass] 30.2 pg 26.0 - 33.0 pg [facility] MCHC (RBC) [Mass/Vol] 31.5 g/dL Low [facility] MCV (RBC) [Entitic vol] 95.8 fL High 80.0 - 94.0 fL [facility] Monocytes Absolute 0.6 [facility] Monocytes/100 WBC (Bld) 9.5 % [facility] nRBC 0 /100 wbc [facility] Comment on above: Performed at [facility] [address] [place] [address] Platelet mean volume (Bld) [Entitic vol] 12.9 fL High 9.4 - 12.4 fL [facility] Platelets (Bld) [#/Vol] 98 10*3/uL Low [facility] RBC (Bld) [#/Vol] 3.58 10*6/uL Low [facility] Segmented neutrophils/100 WBC (Bld) 68.3 % [facility] Segs Absolute 4.3 [facility] WBC (Bld) [#/Vol] 6.3 10*3/uL [facility] CORTISOLon 02-09-2022 CORTISOL 15.55 ug/dL Normal [facility] Comment on above: Result Comment: Refe rence ranges AM serum (7-9AM): 4.82-19.5 ug/dl PM serum (3-5PM): 2.47-11.9 ug/dl Performed By: #### P OCGL #### [facility] [address] [place] [address] CORTISOL 21.14 ug/dL Normal [facility] Comment on above: Result Comment: Refe rence ranges AM serum (7-9AM): 4.82-19.5 ug/dl PM serum (3-5PM): 2.47-11.9 ug/dl Performed By: #### P OCGL #### [facility] [address] [place] [address] CORTISOL SPECIMEN 30 Minute Normal [facility] Comment on above: Performed By: #### P OCGL #### [facility] [address] [place] [address] CORTISOL SPECIMEN Baseline Normal [facility] Comment on above: Performed By: #### P OCGL #### [facility] [address] [address] CORTISOL 7.85 ug/dL Normal [facility] Comment on above: Result Comment: Refe rence ranges AM serum (7-9AM): 4.82-19.5 ug/dl PM serum (3-5PM): 2.47-11.9 ug/dl Performed By: #### P OCGL #### [facility] adjust [address] [address] CORTISOL SPECIMEN AM Specimen Normal [facility] Comment on above: Performed By: #### P OCGL #### [address] [address] CORTISOL 4.35 ug/dL Normal [facility] Comment on above: Result Comment: Refe rence ranges AM serum (7-9AM): 4.82-19.5 ug/dl PM serum (3-5PM): 2.47-11.9 ug/dl Performed By: #### P OCGL #### [facility] [address] [address] Cortisol Totalon 02-09-2022 Cortisol 21.14 ug/dL [employer] Comment on above: Reference ranges AM serum (7-9AM): 4.82-19.5 ug/dl PM serum (3-5PM): 2.47-11.9 ug/dl Cortisol Collection Info 60 Minute [employer] Comment on above: Performed at [facility] [address] [place] [address] [employer] Cortisol 15.55 ug/dL [employer] Comment on above: Reference ranges AM serum (7-9AM): 4.82-19.5 ug/dl PM serum (3-5PM): 2.47-11.9 ug/dl Cort[employer] Collection Info 30 Minute [facility] Comment on above: Performed at [facility] [address] [place] [address] [employer] Cortisol 4.35 ug/dL [employer] Comment on above: Reference ranges AM serum (7-9AM): 4.82-19.5 ug/dl PM serum (3-5PM): 2.47-11.9 ug/dl [facility] Collection Info AM Specimen [employer] Comment on above: Performed at [facility] [address] [place] [address] [facility] Cortisol, 0 minuteson 2021 Cortisol 7.85 ug/dL [facility] Comment on above: Reference ranges AM serum (7-9AM): 4.82-19.5 ug/dl PM serum (3-5PM): 2.47-11.9 ug/dl Cort[employer] Collection Info Baseline [facility] Comment on above: Performed at [facility] [address] [place] [address] [facility] GLUCOSE POCon 02-09-2022 Glucose [Mass/Vol] 154 mg/dL High 70-108 [facility] Comment on above: Performed By: #### P OCGL #### [address] [address] Glucose [Mass/Vol] 167 mg/dL High 70-108 [facility] Comment on above: Performed By: #### C BCND, PT, APTT, BMP, ANION, EGFR1 #### [facility] [facility] [address] [place] [address] Glucose [Mass/Vol] 121 mg/dL High 70-108 [facility] Comment on above: Performed By: #### P OCGL #### [facility] [address] [place] [address] Glucose [Mass/Vol] 106 mg/dL Normal 70-108 [facility] Comment on above: Performed By: #### P OCGL #### [facility] [address] [place] [address] Glucose [Mass/Vol] 117 mg/dL High 70-108 [facility] Comment on above: Performed By: #### P OCGL #### [facility] [employer] [address] [place] [address] POCT Glucoseon 02-09-2022 Glucose [Mass/Vol] 154 mg/dL High 70 - 108 mg/dl [facility] Comment on above: Performed at [facility] [address] [place] [address] Interpretation and review of laboratory results Abnormal [facility] Glucose [Mass/Vol] 167 mg/dL High 70 - 108 mg/dl [facility] Comment on above: Performed at [facility] [address] [place] [address] Interpretation and review of laboratory results Abnormal [facility] Glucose [Mass/Vol] 121 mg/dL High 70 - 108 mg/dl [facility] Comment on above: Performed at [facility] [address] [place] [address] Interpretation and review of laboratory results Abnormal [facility] Glucose [Mass/Vol] 106 mg/dL 70 - 108 mg/dl [facility] Comment on above: Performed at [facility] [address] [place] [address] Glucose [Mass/Vol] 117 mg/dL High 70 - 108 mg/dl [facility] Comment on above: Performed at [facility] [address] [place] [address] Interpretation and review of laboratory results Abnormal [facility] ANION GAPon 02-08-2022 Anion gap [Moles/Vol] 9.0 mmol/L Normal 8.0-16.0 [facility] Comment on above: Result Comment: ANIO N GAP = Sodium -(Chloride + CO2) Performed By: #### C BCND, PT, APTT, BMP, ANION, EGFR1 #### [facility] [employer] [place] [address] Anion Gapon 02-08-2022 Anion gap [Moles/Vol] 9.0 mmol/L 8.0 - 16.0 meq/L [facility] Comment on above: ANION GAP = Sodium - (Chloride + CO2) Performed at [facility] [address] [place] [address] Anion gap [Moles/Vol] 6.0 mmol/L Low 8.0 - 16.0 meq/L [facility] Comment on above: ANION GAP = Sodium - (Chloride + CO2) Performed at [facility] [address] [place] [address] BASIC METABOL PANELon 2021 Calcium [Mass/Vol] 7.8 mg/dL Low 8.5-10.5 [facility] Comment on above: Performed By: #### C BCND, PT, APTT, BMP, ANION, EGFR1 #### [facility] [address] [place], [place] [id number] Chloride [Moles/Vol] 108 mmol/L Normal 98-111 [facility] Comment on above: Performed By: #### C BCND, PT, APTT, BMP, ANION, EGFR1 #### [facility] [employer] [address] [place] [address]88 CO2 [Moles/Vol] 21 mmol/L Low 23-33 [facility] Comment on above: Performed By: #### C BCND, PT, APTT, BMP, ANION, EGFR1 #### [facility] [employer] [address] [place] [address] Creatinine [Mass/Vol] 1.0 mg/dL Normal 0.4-1.2 [facility] Comment on above: Performed By: #### C BCND, PT, APTT, BMP, ANION, EGFR1 #### [address] [address] Glucose [Mass/Vol] 112 mg/dL High 70-108 [facility] Comment on above: Performed By: #### C BCND, PT, APTT, BMP, ANION, EGFR1 #### [facility] [employer] [address] [place] [address] 12198 Potassium [Moles/Vol] 4.3 mmol/L Normal 3.5-5.2 [facility] Comment on above: Performed By: #### C BCND, PT, APTT, BMP, ANION, EGFR1 #### [address] [address] Sodium [Moles/Vol] 138 mmol/L Normal 135-145 [facility] Comment on above: Performed By: #### C BCND, PT, APTT, BMP, ANION, EGFR1 #### [facility] [employer] [address] [place] [address] 49807 Urea nitrogen [Mass/Vol] 12 mg/dL Normal 7-22 [facility] Comment on above: Performed By: #### C BCND, PT, APTT, BMP, ANION, EGFR1 #### [facility] [employer] [address] [place] [address] 28242 Basic Metabolic Panelon 01-18 Calcium [Mass/Vol] 7.8 mg/dL Low 8.5 - 10. 5 mg/dL [facility] Comment on above: Performed at [facility] [address] [place] [address] Chloride [Moles/Vol] 108 mmol/L 98 - 11 1 meq/L [employer] CO2 [Moles/Vol] 21 mmol/L Low 23 - 33 meq/L [employer] [facility] Creatinine [Mass/Vol] 1 mg/dL 0.4 - 1.2 mg/dL [facility] Glucose [Mass/Vol] 112 mg/dL High 70 - 108 mg/dL [facility] Potassium [Moles/Vol] 4.3 mmol/L 3.5 - 5.2 meq/L [facility] Sodium [Moles/Vol] 138 mmol/L 135 - 145 meq/L [facility] Urea nitrogen (BldV) [Mass/Vol] 12 mg/dL 7 - 22 mg/dL [facility] Calcium [Mass/Vol] 7.5 mg/dL Low 8.5 - 10. 5 mg/dL [facility] Comment on above: Performed at [facility] ion Medical Lab [address] [place] [address] Chloride [Moles/Vol] 109 mmol/L 98 - 11 1 meq/L [facility] CO2 [Moles/Vol] 22 mmol/L Low 23 - 33 meq/L [facility] Creatinine [Mass/Vol] 0.8 mg/dL 0.4 - 1.2 mg/dL [facility] Glucose [Mass/Vol] 104 mg/dL 70 - 108 mg/dL [facility] Potassium [Moles/Vol] 3.8 mmol/L 3.5 - 5.2 meq/L [facility] Sodium [Moles/Vol] 137 mmol/L 135 - 145 meq/L [facility] Urea nitrogen (BldV) [Mass/Vol] 12 mg/dL 7 - 22 mg/dL [facility] CBCon 02-08-2022 Erythrocyte distribution width (RBC) [Ratio] 13.4 % 11.5 - 14.5 % [facility] Erythrocyte distribution width (RBC) [Ratio] 48.5 fL High 35.0 - 45.0 fL [facility] Hematocrit (Bld) [Volume fraction] 33.5 % Low 42.0 - 52.0 % [employer] [facility] Hemoglobin.gastrointes tinal spec 1 Ql (Stl) 10.2 Low [facility] th Interpretation and review of laboratory results Abnormal [facility] MCH (RBC) [Entitic mass] 30.1 pg 26.0 - 33.0 pg [facility] MCHC (RBC) [Mass/Vol] 30.4 g/dL Low [facility] MCV (RBC) [Entitic vol] 98.8 fL High 80.0 - 94.0 fL [facility] Platelet mean volume (Bld) [Entitic vol] 12.9 fL High 9.4 - 12.4 fL [facility] Comment on above: Performed at [facility] [address] [place] [address] Platelets (Bld) [#/Vol] 89 10*3/uL Low [facility] RBC (Bld) [#/Vol] 3.39 10*6/uL Low [facility] WBC (Bld) [#/Vol] 6.2 10*3/uL [facility] CBC NO DIFFERENTIALon 2021 Erythrocyte distribution width (RBC) [Ratio] 13.4 % Normal 11.5-14.5 [facility] Comment on above: Performed By: #### P OCGL #### [employer] [address] [place] [address] Hematocrit (Bld) [Volume fraction] 33.5 % Low 42.0-52.0 [facility] Comment on above: Performed By: #### P OCGL #### [employer] [address] [place] [address]288 Hemoglobin (Bld) [Mass/Vol] 10.2 g/dL Low 14.0-18.0 [facility] Comment on above: Performed By: #### P OCGL #### [employer] [address] [place] [address] MCH (RBC) [Entitic mass] 30.1 pg Normal 26.0-33.0 [facility] Comment on above: Performed By: #### P OCGL #### [facility] [address] [place] [address]71 MCHC (RBC) [Mass/Vol] 30.4 g/dL Low 32.2-35.5 [facility] Comment on above: Performed By: #### P OCGL #### [facility] [address] [place] [address] MCV (RBC) [Entitic vol] 98.8 fL High 80.0-94.0 [facility] Comment on above: Performed By: #### P OCGL #### [facility] [address] [place] [address] PLATELET 89 thou/mm3 Low 130-400 [facility] Comment on above: Performed By: #### P OCGL #### [facility] [address] [place] [address] Platelet mean volume (Bld) [Entitic vol] 12.9 fL High 9.4-12.4 [facility] Comment on above: Performed By: #### P OCGL #### [facility] [address] [place] [address]30 RBC 3.39 mill/mm3 Low 4.70-6.10 [facility] Comment on above: Performed By: #### P OCGL #### [facility] [address] [place] [address] RDW-SD 48.5 fL High 35.0-45.0 [facility] Comment on above: Performed By: #### P OCGL #### [facility] [address] [place] [address]444 WBC 6.2 thou/mm3 Normal 4.8-10.8 [facility] Comment on above: Performed By: #### P OCGL #### [facility] [address] [place] [address]290 EKG 12 LeadOrdered By: Susan Carrion on 02-08-2022 Atrial Rate 55 BPM [employer] Phone: P [place] 27 degrees [employer] Phone: P-R Interval 162 ms [employer] Phone: Q-T Interval 460 ms [employer] Phone: QRS Duration 94 ms [employer] Phone: QTc Calculation (Bazett) 440 ms [employer] Phone: R [place] -22 degrees [employer] Phone: T [place] 1 degrees [employer] Phone: Ventricular Rate 55 BPM [employer] Phone: [employer] Work Phone: EKG 12 Leadon 02-08-2022 Sinus bradycardia Otherwise normal ECG When compared with ECG of 23-JAN-2022 11:32, No significant change was found Confirmed by SUSAN CARRION ([id number]) on 02/08/2022 10:35:59 AM [facility] Susan Carrion MD - 02/08/2022 Sinus bradycardia Otherwise normal ECG When compared with ECG of 23-JAN-2022 11:32, No significant change was found Confirmed by SUSAN CARRION ([id number]) on 02/08/2022 10:35:59 AM [employer] Phone: EKG 12-LEADon 02-08-2022 EKG 12-LEAD 55 55 [phone] 27 -22 1 Sinus bradycardia Otherwise normal ECG When compared with ECG of 23-JAN-2022 11:32, No significant change was found Confirmed by SUSAN CARRION ([id number]) on 02/08/2022 10:35:59 AM [email or web address] [id number]&Date=09-02-20 22&Time=[id number] &TestType=ECG&Site=3&Outp utType=PDF&Ext=PDF Normal [facility] GFR, ESTIMATEDon 02-08-2022 GFR/1.73 sq M.predicted MDRD (S/P/Bld) [Vol rate/Area] 75 mL/min/{1.73_m2} Abnormal [facility] Comment on above: Result Comment: Lilliam crum [...] BCND, PT, APTT, BMP, ANION, EGFR1 #### [facility] [address] [place] [address] GLUCOSE POCon 02-08-2022 Glucose [Mass/Vol] 71 mg/dL Normal 70-108 [facility] Comment on above: Performed By: #### P OCGL ####[facility] [employer] [address] [place] [address] Glucose [Mass/Vol] 111 mg/dL High 70-108 [facility] Comment on above: Performed By: #### C BCND, PT, APTT, BMP, ANION, EGFR1 #### [facility] [address] [place] [address] Glucose [Mass/Vol] 66 mg/dL Low 70-108 [facility] Comment on above: Performed By: #### P OCGL #### [facility] [address] [place] [address] Glucose [Mass/Vol] 116 mg/dL High 70-108 [facility] Comment on above: Performed By: #### C BCND, PT, APTT, BMP, ANION, EGFR1 #### [facility] [address] [place] [address] Glucose [Mass/Vol] 68 mg/dL Low 70-108 [facility] Comment on above: Performed By: #### P OCGL #### [facility] [address] [place] [address] Glucose [Mass/Vol] 101 mg/dL Normal 70-108 [facility] Comment on above: Performed By: #### C BCND, PT, APTT, BMP, ANION, EGFR1 #### [facility] [address] [place] [address] Glucose [Mass/Vol] 126 mg/dL High 70-108 [facility] Comment on above: Performed By: #### P OCGL #### [facility] [address] [place] [address] Glomerular Filtration Rate, Estimatedon 02-08-2022 GFR/1.73 sq M.predicted MDRD (S/P/Bld) [Vol rate/Area] 75 mL/min/{1.73_m2} Abnormal ml/min/1.[address] [place] [address] Comment on above: Stage Description GF R, [...] Vol. 139 (2) pg 137-147. Performed at [facility] [employer] [employer] [address] [place] [address] GFR/1.73 sq M.predicted MDRD (S/P/Bld) [Vol rate/Area] mL/min/{1.73_m2} ml/min/1.[address] [place] [address] Comment on above: Stage Description GF R, [...] Vol. 139 (2) pg 137-147. Performed at [facility] [address] [place] [address] HGB,HCTon 02-08-2022 Hematocrit (Bld) [Volume fraction] 37.3 % Low 42.0-52.0 [facility] Comment on above: Performed By: #### P OCGL #### [facility] [address] [place] [address] Hemoglobin (Bld) [Mass/Vol] 11.4 g/dL Low 14.0-18.0 [facility] Comment on above: Performed By: #### P OCGL #### [facility] [address] [place] [address] Hemoglobin and Hematocriton 02-08-2022 Hematocrit (Bld) [Volume fraction] 37.3 % Low 42.0 - 52.0 % [facility] Comment on above: Performed at [facility] ion Medical Lab [address] [place] [address] Hemoglobin.gastrointes tinal spec 1 Ql (Stl) 11.4 Low [facility] Interpretation and review of laboratory results Abnormal [facility] Hemoglobin and hematocrit, b loodon 02-08-2022 Hematocrit (Bld) [Volume fraction] 36.9 % Low 42.0 - 52.0 % [facility] Comment on above: Performed at [facility] [address] [place] [address] Hemoglobin.gastrointes tinal spec 1 Ql (Stl) 11.6 Low [facility] Interpretation and review of laboratory results Abnormal [facility] No Panel Informationon 02-08 Interpretation and review of laboratory results Abnormal [facility] Interpretation and review of laboratory results Abnormal [facility] POCT Glucoseon 02-08-2022 Glucose [Mass/Vol] 71 mg/dL 70 - 108 mg/dl [facility] Comment on above: Performed at [facility] [address] [place] [address] Health Glucose [Mass/Vol] 111 mg/dL High 70 - 108 mg/dl [facility] Comment on above: Performed at [facility] [employer] [facility] [address] [place] [address] Interpretation and review of laboratory results Abnormal [facility] Glucose [Mass/Vol] 66 mg/dL Low 70 - 108 mg/dl [facility] Comment on above: Performed at [facility] [address] [place] [address] Interpretation and review of laboratory results Abnormal [facility] Glucose [Mass/Vol] 116 mg/dL High 70 - 108 mg/dl [facility] Comment on above: Performed at [facility] [address] [place] [address] Interpretation and review of laboratory results Abnormal [facility] Glucose [Mass/Vol] 68 mg/dL Low 70 - 108 mg/dl [facility] Comment on above: Performed at [facility] [address] [place] [address] Interpretation and review of laboratory results Abnormal [facility] Glucose [Mass/Vol] 101 mg/dL 70 - 108 mg/dl [facility] Comment on above: Performed at [facility] [address] Glucose [Mass/Vol] 126 mg/dL High 70 - 108 mg/dl [facility] Comment on above: Performed at [facility] ion Medical [facility] [address] [place] [address] Interpretation and review of laboratory results Abnormal [facility] PROCALCITONINon 02-08-2022 PROCALCITONIN 0.08 ng/mL Normal 0.01-0.09 [facility] Comment on above: Result Comment: Susp [...] entered into the Change in Procalcitonin Calculator ([email or web address]) to determine the patient's Mortality Risk Prognosis. In healthy neonates, plasma Procalcitonin (PCT) concentrations increase gradually after , reaching peak values at about 24 hours of age then decrease to normal values below 0.5 ng/mL by 48-72 hours of age. Performed By: #### P OCGL #### [facility] [address] [place] [address] Procalcitoninon 02-08-2022 Procalcitonin 0.08 ng/mL 0.01 - 0.09 ng/mL [facility] Comment on above: Suspected Sepsis: <0.50 [...] entered into the Change in Procalcitonin Calculator ([email or web address]) to determine the patient's Mortality Risk Prognosis. In healthy neonates, plasma Procalcitonin (PCT) concentrations increase gradually after , reaching peak values at about 24 hours of age then decrease to normal values below 0.5 ng/mL by 48-72 hours of age. Performed at [facility] [address] SCAN OF BLOOD SMEARon 2021 SCAN OF BLOOD SMEAR see below Normal [facility] Comment on above: Result Comment: Sony stafford Exceeded; Scan of Differential Slide Performed Performed By: #### P OCGL #### [facility] [employer] [address] [place] [address] Scan of Blood Smearon 2021 SCAN OF BLOOD SMEAR see below [facility] Comment on above: Criteria Exceeded; S can of Differential Slide Performed Performed at [address] XR CHEST PORTABLEon 02-09-20 22 Prominent left basil ar opacity as evidence for atelectasis and/or infiltrate. This report has been created using voice recognition software. It may contain minor errors which are inherent in voice recognition technology. Final report electronically signed by Dr. Romel Maldonado DO, MD on 02/08/2022 10:26 AM [facility] Romel Nguyen DO - 02/08/2022 PROCEDURE: XR [...] Maldonado DO, MD on 02/08/2022 10:26 AM [employer] Phone: Radiology Study observation (narrative) [employer] Phone: XR CHEST PORTABLEOrdered By: Romel Maldonado on 02-08-2022 [employer] Phone: GLUCOSE POCon 02-07-2022 Glucose [Mass/Vol] 132 mg/dL High 70-108 [facility] Comment on above: Performed By: #### C BCND, PT, APTT, BMP, ANION, EGFR1 #### [facility] [address] [place] [address] Glucose [Mass/Vol] 118 mg/dL High 70-108 [facility] Comment on above: Performed By: #### C BCND, PT, APTT, BMP, ANION, EGFR1 #### [facility] [address] [place] [address] Glucose [Mass/Vol] 77 mg/dL Normal 70-108 [facility] Comment on above: Performed By: #### P OCGL #### [facility] [address] [place] [address] POCT Glucoseon 02-07-2022 Glucose [Mass/Vol] 132 mg/dL High 70 - 108 mg/dl [facility] Comment on above: Performed at [facility] [address] [place] [address] Interpretation and review of laboratory results Abnormal [facility] Glucose [Mass/Vol] 118 mg/dL High 70 - 108 mg/dl [facility] Comment on above: Performed at [facility] [address] [place] [address] Interpretation and review of laboratory results Abnormal [facility] Glucose [Mass/Vol] 77 mg/dL 70 - 108 mg/dl [facility] Comment on above: Performed at [facility] [address] [place] [address] [facility] TYPE AND SCREENon 02-07-2022 ABO A [facility] Rh Factor Negative [facility] TYPE AND SCREEN CAPTUREon ABO CAPTURE A Normal [facility] Comment on above: Performed By: #### C BCND, PT, APTT, BMP, ANION, EGFR1 #### [facility] [address] [place] [address] INDIRECT ARVIN CAPTURE Negative Normal [facility] Comment on above: Performed By: #### C BCND, PT, APTT, BMP, ANION, EGFR1 #### [facility] [address] [place] [address] RH CAPTURE (2 D CLONES) Negative Normal [facility] Comment on above: Performed By: #### C BCND, PT, APTT, BMP, ANION, EGFR1 #### [facility] [address] [place] [address] XR LUMBAR SPINE 1 VWon 02-07 XR [...] Allen MD 02/07/22 Final result Normal [facility] Postop appearance of the lumbar spine. This report has been created using voice recognition software. It may contain minor errors which are inherent in voice recognition technology. Final report electronically signed by Dr. Wicho Allen on 02/07/2022 2:28 PM [facility] RIS CONSOLIDATED MOBILE LATERAL LUMBA R SPINE: CLINICAL INFORMATION: L2 S1 decompression, posterior COMPARISON: Earlier film same date, 1120 hours. TECHNIQUE: A single lateral mobile view of the lumbar spine was obtained following surgery performed by Dr. Loza. FINDINGS: Posterior lumbar fusion has been performed, with the pedicle screws and rods extending from L2 to S1. The lumbar vertebra are normally aligned. [facility] Wicho Heredia MD - 02/07/2022 MOBILE [...] Dr. Wicho Allen on 02/07/2022 2:28 PM [employer] Phone: Lateral film of the lumbar spine during surgery. Please refer to the operative note for further details. This report has been created using voice recognition software. It may contain minor errors which are inherent in voice recognition technology. Final report electronically signed by Dr Milton Way on 02/07/2022 2:17 PM [facility] Milton Slater MD - 02/07/2022 PROCEDURE: XR [...] Dr Milton Way on 02/07/2022 2:17 PM [employer] Phone: Radiology Study observation (narrative) [employer] Phone: Radiology Study observation (narrative) [employer] Phone: XR LUMBAR SPINE 1 VWOrdered By: Wicho Allen on 02-07-2022 [employer] Phone: XR LUMBAR SPINE 1 VWOrdered By: Milton Way on 02-07-2022 [employer] ANION GAPon 01-23-2022 Anion gap [Moles/Vol] 10.0 mmol/L Normal 8.0-16.0 [facility] Comment on above: Result Comment: ANIO N GAP = Sodium -(Chloride + CO2) Performed By: #### P OCGL #### [facility] [address] [place] [address] APTTon 01-23-2022 aPTT Coag (Bld) [Time] 35.1 s Normal 22.0-38.0 [facility] Comment on above: Result Comment: Ther apeutic Heparin Reference Range= 60-95 seconds (corresponds to 0.3 to 0.7 u/mL Anti-Xa factor activity) Performed By: #### C BCND, PT, APTT, BMP, ANION, EGFR1 #### [facility] [address] [place] [address] BASIC METABOL PANELon 2021 Calcium [Mass/Vol] 9.8 mg/dL Normal 8.5-10.5 [facility] Comment on above: Performed By: #### C BCND, PT, APTT, BMP, ANION, EGFR1 #### [facility] [address] [place] [address] Chloride [Moles/Vol] 104 mmol/L Normal 98-111 [facility] Comment on above: Performed By: #### C BCND, PT, APTT, BMP, ANION, EGFR1 #### [facility] [address] [place] [address]53 CO2 [Moles/Vol] 29 mmol/L Normal 23-33 [facility] Comment on above: Performed By: #### C BCND, PT, APTT, BMP, ANION, EGFR1 #### [address] [address] Creatinine [Mass/Vol] 1.0 mg/dL Normal 0.4-1.2 [facility] Comment on above: Performed By: #### C BCND, PT, APTT, BMP, ANION, EGFR1 #### [address] [address] Glucose [Mass/Vol] 87 mg/dL Normal 70-108 [facility] Comment on above: Performed By: #### C BCND, PT, APTT, BMP, ANION, EGFR1 #### [address] [address] Potassium [Moles/Vol] 4.6 mmol/L Normal 3.5-5.2 [facility] Comment on above: Performed By: #### C BCND, PT, APTT, BMP, ANION, EGFR1 #### [place] [address] Sodium [Moles/Vol] 143 mmol/L Normal 135-145 [facility] Comment on above: Performed By: #### C BCND, PT, APTT, BMP, ANION, EGFR1 #### [place] [address] Urea nitrogen [Mass/Vol] 21 mg/dL Normal 7-22 [facility] Comment on above: Performed By: #### C BCND, PT, APTT, BMP, ANION, EGFR1 #### [place] [address] CBC NO DIFFERENTIALon 2021 Erythrocyte distribution width (RBC) [Ratio] 13.7 % Normal 11.5-14.5 [facility] Comment on above: Performed By: #### C BCND, PT, APTT, BMP, ANION, EGFR1 #### [address] [address] Hematocrit (Bld) [Volume fraction] 51.9 % Normal 42.0-52.0 [facility] Comment on above: Performed By: #### C BCND, PT, APTT, BMP, ANION, EGFR1 #### [place] [address] Hemoglobin (Bld) [Mass/Vol] 16.3 g/dL Normal 14.0-18.0 [facility] Comment on above: Performed By: #### C BCND, PT, APTT, BMP, ANION, EGFR1 #### [place] [address] MCH (RBC) [Entitic mass] 30.1 pg Normal 26.0-33.0 [facility] Comment on above: Performed By: #### C BCND, PT, APTT, BMP, ANION, EGFR1 #### [place] [address] MCHC (RBC) [Mass/Vol] 31.4 g/dL Low 32.2-35.5 [facility] Comment on above: Performed By: #### C BCND, PT, APTT, BMP, ANION, EGFR1 #### [place] [address] MCV (RBC) [Entitic vol] 95.8 fL High 80.0-94.0 [facility] Comment on above: Performed By: #### C BCND, PT, APTT, BMP, ANION, EGFR1 #### [place] [address] PLATELET 149 thou/mm3 Normal 130-400 [facility] Comment on above: Performed By: #### C BCND, PT, APTT, BMP, ANION, EGFR1 #### [place] [address] Platelet mean volume (Bld) [Entitic vol] 12.6 fL High 9.4-12.4 [facility] Comment on above: Performed By: #### C BCND, PT, APTT, BMP, ANION, EGFR1 #### [place] [address] RBC 5.42 mill/mm3 Normal 4.70-6.10 [facility] Comment on above: Performed By: #### C BCND, PT, APTT, BMP, ANION, EGFR1 #### [address] [place] [address] RDW-SD 48.8 fL High 35.0-45.0 [facility] Comment on above: Performed By: #### C BCND, PT, APTT, BMP, ANION, EGFR1 #### [facility] [address] [place] [address] WBC 5.8 thou/mm3 Normal 4.8-10.8 [facility] Comment on above: Performed By: #### C BCND, PT, APTT, BMP, ANION, EGFR1 #### [facility] [address] [place] [address] EKG 12-LEADon 01-23-2022 EKG 12-LEAD 55 55 168 90 438 419 24 -23 Sinus bradycardia Otherwise normal ECG No previous ECGs available Confirmed by BALA SCHRADER MD ([id number]) on 01/23/2022 7:54:09 PM [email or web address] [id number]&Date=04-21-20 22&Time=11%3a32%3a52%3a00 &TestType=ECG&Site=3&Outp utType=PDF&Ext=PDF Normal [facility] GFR, ESTIMATEDon 01-23-2022 GFR/1.73 sq M.predicted MDRD (S/P/Bld) [Vol rate/Area] 75 mL/min/{1.73_m2} Abnormal [facility] Comment on above: Result Comment: Stag skyla Description GFR, ml/min/1.73 m2 - At [...] 137-147. Performed By: #### P OCGL #### [address] [address] HEMOGLOBIN A1Con 01-23-2022 Glucose [Mass/Vol] 99 mg/dL Normal 70-126 [facility] Comment on above: Performed By: #### C BCND, PT, APTT, BMP, ANION, EGFR1 #### [place] [address] HbA1c (Bld) [Mass fraction] 5.3 % Normal 4.4-6.4 [facility] Comment on above: Performed By: #### C BCND, PT, APTT, BMP, ANION, EGFR1 #### [place] [address] NASAL COMPLETE SCREEN RT-PCR on 01-23-2022 MRSA SCREEN RT-PCR Positive Abnormal [facility] Comment on above: Result Comment: MRSA TARGET DNA DETECTED by Real Time - Polymerase Chain Reaction. A positive test result does not necessarily indicate the presence of viable organisms. It is, however, presumptive for the presence of MRSA DNA. . Performed By: #### P OCGL #### [place] [address] SA SCREEN RT-PCR Positive Abnormal [facility] Comment on above: Result Comment: Stap hylococcus aureus (SA) target DNA DETECTED by Real Time - Polymerase Chain Reaction. A positive test result does not necessarily indicate the presence of viable organisms. It is, however presumptive for the presence of SA DNA. Performed By: #### P OCGL #### [place] [address] PROTHOMBIN TIMEon 01-23-2022 INR Coag (Bld) [Relative time] 1.06 {INR} Normal 0.85-1.13 [facility] Comment on above: Result Comment: ---- -----INDICATION INR Reference Range DVT, PE, AF, AMI, tissue heart valve 2.0 to 3.0 Mechanical prosthetic valves 2.5 to 3.5 Performed By: #### C BCND, PT, APTT, BMP, ANION, EGFR1 #### [address] CARDIAC STRESS/REST INJE CTIONon 09-05-2021 [facility] CARDIAC STRESS/REST INJECTION Patient Name: ALISIA CORREA STUDY: MYOCARDIAL PERFUSION STRESS TEST WITH LEXISCAN Performing facility: [facility], [address] [place] [address], [address], [place] [address] [facility] Provider: Ren Watson MD, FACC PCP: Dr. Ellen Crabtree Supervising provider: Milagros Mcnally MD, FACC INDICATION: Chest Pain; Dyspnea HISTORY: Gender: M; Age: 60 y/o ; Height: 0 cm; Weight: 0 kg. High Cholesterol; Chest Pain; Syncope; Parkinson's Currently smoking. COMPARISON: Previous nuclear testing completed at [facility]. ACCESSION NUMBER(S): [id number]; [id number]; [id number] ORDERING CLINICIAN: REN WATSON TECHNIQUE: ONE DAY [...] Electronically signed by: REN WATSON MD Normal [facility] No Panel Informationon 09-05 Normal [facility] [address] [place] Work Phone: [...] we can help. You may also call [phone] for free resources and assistance.; Status:Complete - Retrospective Authorization; Done: 16Aug2021 Tobacco Use Screening; Status:Complete; Done: 16Aug2021 Patient Instructions By signing my name below, I, Meghana Castaneda LPN ,Ell[place], attest that this documentation has been prepared [...] of Parkinson's disease followed by neurology from [place] on medical therapy. The patient has been [...] PCP. 7?Parkinson's disease followed by neurology from [place]. 8?obesity, encouraged the patient to reduce caloric [...] History o (more content not included)... Normal [facility] Tobacco Screening.on 021 Fall risk assessment b) One or more fall s in the last year [facility] [facility] [address] DO Work Phone: Tobacco use status CP a) Yes [facility] [facility] [address] DO Work Phone: Tobacco Screening. Yes [facility] [facility] 250 DO Work Phone: CT C-SPINE W RECON DATA -NBo n 09-17-2020 CT C-SPINE W RECON DATA -NB * * *Final Report* * * DATE OF EXAM: Sep 17 2020 12:01PM [facility] 0478 - CT C-SPINE W RECON [...] Counting reference: Craniocervical junction. Anatomic Variants: None. Poultry Grader (topogram) images: Postop changes of the bland. [...] vertebrae with counting from the craniocervical junction. Medical Clerical Assistant: ARPIT Transcribe Date/Time: Sep 17 2020 12:05P Dictated by : NICO MARTIN MD This examination was interpreted and the report reviewed and electronically signed by: NICO MARTIN MD on Sep 17 2020 12:08PM EST [id number] [facility] CTA HEAD WO/W IVCONon 2019 CTA HEAD WO/W IVCON * * *Final Report* * * DATE OF EXAM: Sep 17 2020 12:01PM [facility] 0023 - CTA HEAD WO/W IVCON [...] Applicable Spot Sign Number: Not Applicable NECK: Poultry Grader (topogram) images: Postop changes of ACDF at [...] neck arteries. Essentially normal noncontrast CT brain. 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 Essentially normal noncontrast CT brain. Medical Clerical Assistant: [facility] Transcribe Date/Time: Sep 17 2020 11:56A Dictated by : NICO MARTIN MD This examination was interpreted and the report reviewed and electronically signed by: NICO MARTIN MD on Sep 17 2020 12:09PM EST [id number] Normal [facility] PROGRESSon 09-17-2020 PROGRESS HNO ID: [id number] Author: OMERO Brownlee Service: Radiology Author Type: Clinical Human Geography Instructor Type: Progress Notes Filed: 09/17/2020 11:40 AM [...] OMERO Brownlee September 17, 2020 11:39 AM [facility] Kailash 09-11-2020 CNPN Telephone (AVXRPR) ----- AILSIA CORREA ([id number]) 1960 M Date Time Provider Department 09/11/20 [...] More... Hyperlipidemia [E78.5] 12/07/2017 More... Ulcerative lesion [VTC4724] 12/07/2017 07/21/2019 Shoulder arthritis [M19.019] 12/29/2017 Status [...] gammopathy of unknown signific*09/15/2018 PD (Parkinson's disease) ([facility]) [G20] 04/13/2019 More... 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 Osteoarthritis of left hip [M16.12] 11/08/2019 [...] Encounter Status:Closed by MAKI JEONG on 09/11/20 [facility] CT LUMBAR SPINE WO IVCONon 1 [facility] No Panel Informationon 06-21 [facility] CT THORACIC SPINE WO IVCONon 06-15-2020 [facility] ALLIED HEALTHon 05-04-2020 ALLIED HEALTH HNO ID: [id number] Author: Daniela (Rn) ALFONSO Castro Service: Infection Prevention Author Type: Registered Nurse Type: Allied Health Filed: 05/04/2020 8:19 AM Note Text: ISOLATION NOTE Admission Date: 05/03/2020 Type of Isolation Recommended: Contact Precautions ([place] Isolation Sign) Indication: Carbapenem-resistant Enterobacteriaceae (CRE) Date Isolation Initiated: 05/04/2020 Anticipated Duration of Isolation: Duration of hospitalization Type and Date of Positive Test(s): urine culture 10/18/2019 SIGNATURE: Daniela Castro RN MSN PATIENT NAME: Alisia Correa DATE: May 04, 2020 TIME: 8:17 AM PAGER/CONTACT #: [phone] Normal [facility] Basic Metabolic Panlon 05-04 Anion gap [Moles/Vol] 8 mmol/L Low 9-18 [facility] Calcium [Mass/Vol] 8.4 mg/dL Low 8.5-10.2 [facility] Chloride [Moles/Vol] 103 mmol/L Normal 97-105 [facility] CO2 [Moles/Vol] 25 mmol/L Normal 22-30 [facility] Creatinine [Mass/Vol] 1.11 mg/dL Normal 0.73-1.22 [facility] eGFR- Amer. >60 Normal [facility] GFR/1.73 sq M predicted among non-blacks MDRD (S/P/Bld) [Vol rate/Area] mL/min/{1.73_m2} Normal [facility] Comment on above: Result Comment: eGFR [...] ospital Comment on above: Result Comment: The [place] Diabetes Association (ADA) provides guidance for cutoff [...] Standards of Medical Care in Diabetes 2016, [place] Diabetes Association. Diabetes Care. 2016.39(Suppl 1). Potassium [Moles/Vol] 4.1 mmol/L Normal 3.7-5.1 [facility] Sodium [Moles/Vol] 136 mmol/L Normal 136-144 [facility] Urea nitrogen [Mass/Vol] 16 mg/dL Normal 9-24 [facility] CASE MANAGEMon 05-04-2020 CASE MANAGEM HNO ID: [id number] Author: Ashley (Rn) ALFONSO Sands Service: Care Management Author Type: Registered Nurse Type: Care Mgt Progress Note Filed: 05/04/2020 11:01 AM Note Text: CARE MANAGEMENT PROGRESS NOTE SERVICE DATE: 05/04/2020 SERVICE TIME: 10:59 AM LOS: 0 days Spoke with Titi at [facility] outpatient PT. Appointment scheduled for Monday 05/07 at 1:30 PM. Patient to arrive 15 minutes early. Patient notified. SIGNATURE: Ashley Sands RN PATIENT NAME: Alisia Correa DATE: May 04, 2020 TIME: 10:59 AM PAGER/CONTACT #: [phone] [facility] CASE MGT INIT [facility] 2019 CASE MGT INIT [facility] HNO ID: [id number] Author: Ashley (Rn) ALFONSO Sands Service: Care Management Author Type: Registered Nurse Type: Care Mgt Initial Assessment Filed: 05/04/2020 10:16 AM Note Text: CARE MANAGEMENT: ASSESSMENT AND DISCHARGE PLAN SERVICE DATE: May 04, 2020 SERVICE TIME: 10:15 AM PRIMARY CARE PHYSICIAN: Ellen Crabtree DO ADMISSION STATUS: Extended Recovery MEDICAL: [employer] 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 Attempted to Assist with AD Completion: Yes [...] Information Primary Emergency Contact: Dipti Correa Address: [address] [place] [address] [facility] Mobile Relation: Spouse Supportive Patient Contact:: [...] for meeting these needs: Outpatient therapy at [facility] Patient's perception of need for this admission: hip replacement Medication Adherance I am convinced of the importance of my prescription medication: 0 - Agree Completely I worry that my prescription medication will do more harm than good to me : 0 - Disagree Completely I feel financially burdened by my [id number] expenses for my prescription medication:: 0 - Disagree Completely Risk Score: 0 Patient is categorized as: Low risk < 2 Are you interested in bedside delivery of your medications? Yes Is Patient Psychosocially Complex?: No ASSESSMENT AND PLAN: Medical Needs: Medical Needs: None Psychosocial Needs: Psychosocial Needs: None FREEDOM OF CHOICE EXPLAINED: [place] of Choice Given: No Reason Not Given: No placements necessary POTENTIAL TRANSITION PLANS Outpatient Therapy Pt from home with spouse. Plan is Outpatient PT at [place]. Patient does not have an appointment. Call placed to [facility] to schedule appointment. Waiting for return call. SIGNATURE: Ashley Sands RN PATIENT NAME: Alisia Correa DATE: May 04, 2020 TIME: 10:14 AM PAGER/CONTACT #: [phone] Normal [facility] CBCon 05-04-2020 Absolute nRBC <0.01 [facility] width (RBC) [Ratio] 14.1 % Normal 11.5-15.0 [facility] Hematocrit (Bld) [Volume fraction] 39.3 % Normal 39.0-51.0 [facility] Hemoglobin (Bld) [Mass/Vol] 12.6 g/dL Low 13.0-17.0 [facility] MCH (RBC) [Entitic mass] 30.1 pG Normal 26.0-34.0 [facility] MCHC (RBC) [Mass/Vol] 32.1 g/dL Normal 30.5-36.0 [facility] MCV (RBC) [Entitic vol] 94.0 fL Normal 80.0-100.0 [facility] Platelet mean volume (Bld) [Entitic vol] 12.8 fL High 9.0-12.7 [facility] l Platelets (Bld) [#/Vol] 134 10*3/uL Low 150-400 [facility] RBC (Bld) [#/Vol] 4.18 10*6/uL Low 4.20-6.00 [facility] WBC (Bld) [#/Vol] 7.60 10*3/uL Normal 3.70-11.00 [facility] NURSING PROGon 05-04-2020 NURSING PROG HNO ID: [id number] Author: Renae (Rn) ALFONSO Greco Service: ? Author Type: Registered Nurse Type: Nursing Progress Note Filed: 05/04/2020 8:04 PM Note Text: Nursing Progress Note Patient Name: Alisia Correa [facility] Daily Note: 1000 Pt awake oriented this [...] was completed by: Renae Greco RN Normal [facility] PLAN OF CAREon 05-04-2020 PLAN OF CARE HNO ID: [id number] Author: Rita Arias (Chief Psychology) Service: ? Author Type: ? Type: Plan [...] ointment Commonly known as: BACTROBAN Rita Arias (Chief Psychology) PAGER: yvan May 04, 2020 4:29 PM [facility] PROGRESSon 05-04-2020 PROGRESS HNO ID: [id number] Author: Steven Guevara Jr. Service: Orthopaedic Surgery [...] 1751 -- 05/03/20 1800 pneumatic compression stockings ([place], [place]) 05/03/20 1800 graduated compression stockings ([place]) 05/03/20 1800 activity - mobilize patient ([place] 05/03/20 1800 activity - mobilize [place] 05/03/20 1800 activity - mobilize patient ([place]) VTE Prophylaxis: VTE prophylaxis appropriate POST OPERATIVE COMPLICATIONS: Complicated by: uneventful/none SIGNATURE: Steven Guevara Jr, MD PATIENT NAME: Alisia Correa DATE: May 04, 2020 TIME: 7:54 AM PAGER/CONTACT #: [phone] [facility] THERAPY NTon 05-04-2020 THERAPY NT HNO ID: [id number] Author: Nusrat Elkins/Kali Gallegos Service: Occupational Therapy Author Type: Occupational Therapist Type: Therapy (PT/OT/Speech/Resp) Filed: 05/04/2020 1:20 PM Note Text: Occupational Therapy SERVICE DATE: 05/04/2020 SERVICE TIME: 1145 to 1251 ROOM: [place] [address] Recommended Discharge Disposition: Home Anticipated Discharge Needs: [...] of daily living (ADL) Interventions Provided: Evaluation;Self Half-Way Management (24422) $ Evaluation-Low (59455) Billed Units: 1 unit Self Half-Way Management (60643) Treatment Minutes: 51 3 units Skilled Intervention(s): [...] car transfer with instructions given to have front end driver (as Patient is not allowed to [...] Environment Patient Lives With: Spouse Assistance Available: professor of french(spouse works entry writer but workplace is nearby and [facility]) Entry To Home: With Rail;Stairs Number Of Stairs Into Home: 2 Number Of Stairs To Bed/Bath: 1st floor bed and bath Tub/Shower Type: WIS with shower chair, grab bars, HHS Laundry: 1ST FLOOR Equipment Owned: Cane;Hand Held Shower;Grab Bars-Shower;Standard Walker;Commode-Raised;Tammy wer Chair;Lift Chair;ADL Kit;Sales Operations Manager;Wheeled Walker Prior Functional Level: Within Functional Limits Prior Functional Level Comments: DIRECTOR EDUCATION, 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, IADL's, amb usually without AD, but had to use RW 1 week DIRECTOR EDUCATION due to being off OA meds OBJECTIVE: [...] May 04, 2020 TIME: 1:08 PM Normal [facility] THERAPY NT HNO ID: [id number] Author: Massiel (Pt) ALBA Russell Service: Physical Therapy Author Type: Physical Therapist Type: Therapy (PT/OT/Speech/Resp) Filed: 05/04/2020 11:30 AM Note Text: Physical Therapy Evaluation SERVICE DATE: 05/04/2020 SERVICE TIME: 1008 to 1050 ROOM: [place] [address] Recommended Discharge Disposition: Outpatient Physical Therapy Anticipated [...] Diagnosis: Reduced mobility-other Interventions Provided: Evaluation;Therapeutic Exercise (54761);Therapeutic Activity (69128);Gait Training (94714) $ Evaluation-Moderate (83273) Billed Units: 1 unit Therapeutic Exercise (33880) Treatment Minutes: 6 Skilled Intervention(s): Instruction in therapeutic exercise per THR protocol: AP, QS, GS, HS, abd, LAQ Verbal and tactile cuing provided for each. Written handouts provided and reviewed with patient today Therapeutic Activity (09150) Treatment Minutes: 10 1 unit Skilled Intervention(s): [...] 2/3 precautions without cues today Gait Training (22405) Treatment Minutes: 11 1 unit Skilled Intervention(s): [...] Environment Patient Lives With: Spouse Assistance Available: professor of french(spouse works entry writer but workplace is nearby and flexib le) Entry To Home: With Rail;Stairs Number Of Stairs Into Home: 2 Number Of Stairs To Bed/Bath: 1st floor bed and bath Tub/Shower Type: WIS with shower chair, grab bars, HHS Laundry: 1ST FLOOR Equipment Owned: Cane;Hand Held Shower;Grab Bars-Shower;Standard Walker;Commode-Raised;Tammy wer Chair;Lift Chair;ADL Kit;Sales Operations Manager;Wheeled Walker Prior Functional Level: Within Functional Limits Prior Functional Level Comments: DIRECTOR EDUCATION, 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, IADL's, amb usually without AD, but had to use RW 1 week DIRECTOR EDUCATION due to being off OA meds OBJECTIVE: [...] May 04, 2020 TIME: 11:21 AM Normal [facility] ANES POSTPROC EVALon 020 ANES POSTPROC EVAL HNO ID: [id number] Author: Jac Leon Service: ? Author Type: Physician Type: Anesthesia Postprocedure Evaluation Filed: 05/03/2020 4:28 PM Note Text: POST ANESTHESIA EVALUATION NOTE : 1960 Procedure Summary Date: 05/03/20 Room / Location: AV OR01 / AV OR Anesthesia Start: 1245 [...] May 03, 2020 TIME: 4:28 PM CSN: [id number] [facility] ANES PRE-OPon 05-03-2020 ANES PRE-OP HNO ID: [id number] Author: Coreen Ryan Service: ? Author Type: [...] May 03, 2020 TIME: 10:37 AM CSN: [id number] Normal [facility] Basic Metabolic Panlon 05-03 Anion gap [Moles/Vol] 8 mmol/L Low 9-18 [facility] Calcium [Mass/Vol] 8.7 mg/dL Normal 8.5-10.2 [facility] Chloride [Moles/Vol] 105 mmol/L Normal 97-105 [facility] CO2 [Moles/Vol] 25 mmol/L Normal 22-30 [facility] Creatinine [Mass/Vol] 1.20 mg/dL Normal 0.73-1.22 [facility] eGFR- Amer. >60 Normal [facility] GFR/1.73 sq M predicted among non-blacks MDRD (S/P/Bld) [Vol rate/Area] mL/min/{1.73_m2} Normal [facility] Comment on above: Result Comment: eGFR [...] Glucose [Mass/Vol] 107 mg/dL High 74-99 [facility] Comment on above: Result Comment: The [place] Diabetes Association (ADA) provides guidance for cutoff [...] Standards of Medical Care in Diabetes 2016, [place] [employer] Association. Diabetes Care. 2016.39(Suppl 1). Potassium [Moles/Vol] 4.3 mmol/L Normal 3.7-5.1 [facility] Sodium [Moles/Vol] 138 mmol/L Normal 136-144 [facility] ospital Urea nitrogen [Mass/Vol] 18 mg/dL Normal 9-24 [facility] CBCon 05-03-2020 Absolute nRBC <0.01 Normal <0.01 [facility] Erythrocyte distribution width (RBC) [Ratio] 14.1 % Normal 11.5-15.0 [facility] Hematocrit (Bld) [Volume fraction] 43.9 % Normal 39.0-51.0 [facility] Hemoglobin (Bld) [Mass/Vol] 14.3 g/dL Normal 13.0-17.0 [facility] MCH (RBC) [Entitic mass] 30.2 pG Normal 26.0-34.0 [facility] MCHC (RBC) [Mass/Vol] 32.6 g/dL Normal 30.5-36.0 [facility] MCV (RBC) [Entitic vol] 92.8 fL Normal 80.0-100.0 [facility] Platelet mean volume (Bld) [Entitic vol] 11.7 fL Normal 9.0-12.7 [facility] l Platelets (Bld) [#/Vol] 145 10*3/uL Low 150-400 [facility] RBC (Bld) [#/Vol] 4.73 10*6/uL Normal 4.20-6.00 [facility] WBC (Bld) [#/Vol] 9.79 10*3/uL Normal 3.70-11.00 [facility] CONSULTon 05-03-2020 CONSULT HNO ID: [id number] Author: Henry Collins Service: Hospital Medicine Author Type: Physician Type: Consults Filed: 05/03/2020 8:50 PM Note Text: DEPARTMENT OF HOSPITAL MEDICINE INITIAL CONSULT SERVICE DATE: 05/03/2020 SERVICE TIME: 7:44 PM Primary Care Physician: Ellen Crabtree, DO NIGHT AND WEEKEND COVERAGE: [place] COVERAGE: Days: [phone], please contact day attending provider ( please page admission pager [phone] to find out day attending provider for [...] Laterality Date - COLONOSCOP W/ OR W/O [facility] SPEC Colonoscopy - EGD W/O OR W/BRUSH/WASH [...] SCM 08/06/2010 Performed by GEORGINA SEAMAN at [facility] Left [...] 03, 2020 TIME: 7:44 PM PAGER/CONTACT #: [facility] NURSING PROGon 05-03-2020 NURSING PROG HNO ID: [id number] Author: Renae (Rn) ALFONSO Greco Service: ? Author Type: Registered Nurse Type: Nursing Progress Note Filed: 05/03/2020 7:58 PM Note Text: Nursing Progress Note Patient Name: Alisia Correa Patient Location[place] [address] [address] Daily Note: Received pt from PACU in stable condition at 1745. Bilateral ppp, toes warm and mobile, denies numbness or tingling, Abductor pillow in place. Vitals stable. Will monitor. This note was completed by: Renae Greco RN [facility] OPERATIVE NOon 05-03-2020 OPERATIVE NO HNO ID: [id number] Author: Steven Guevara Jr. Service: Orthopaedic Surgery Author Type: Physician Type: Operative Report Filed: 05/03/2020 3:08 PM Note Text: [facility] OPERATIVE REPORT PATIENT NAME: Alisia Correa AGE: [age] year old LOG ID: [id number] Surgery Date: 05/03/2020 SURGEON: Steven Guevara M.D. STRANNER: Vj Jorge PA-C, his assistance consisted of [...] banked allogenic blood if medically necessary. IMPLANTS: [employer] Total Hip System SIZE TYPE Acetabulum [...] dislocated. Proximal femoral osteotomy was performed. The boxing and pressing supervisor osteotome was utilized to lateralize the starting [...] DATE: May 03, 2020 TIME: 2:57 PM [facility] PROGRESSon 05-03-2020 PROGRESS HNO ID: [id number] Author: Tracey Reyes) Bill Service: Radiology Author Type: Human Geography Instructor Type: Progress Notes Filed: 05/03/2020 4:01 PM [...] RT Kathy May 03, 2020 4:01 PM [facility] PROGRESS HNO ID: [id number] Author: Steven Guevara Jr. Service: Orthopaedic Surgery Author Type: Physician Type: Progress Notes Filed: 05/03/2020 8:02 AM Note Text: The patient was offered a surgery/procedure at a [facility] facility. The surgeon/proceduralist and patient have discussed [...] surgery/procedure as indicated on the consent form. [facility] PT EDon 05-03-2020 PT ED HNO ID: [id number] Author: Kaylee Sunshine RN Service: ? Author Type: Registered Nurse Type: Patient Education Filed: 05/03/2020 11:02 AM Note Text: PRE OP LEARNING ASSESSMENT PROCEDURE/SURGERY: SURGERY READINESS TO LEARN COGNITIVE ABILITY: Alert and oriented MOTIVATION TO LEARN: Interested FAMILY SUPPORT: Unable to assess - Family not present PATIENT LEARNS BEST BY: Individual Instruction Verbal Instruction FACTORS AFFECTING LEARNING: None PHYSICAL LIMITATIONS AFFECTING LEARNING: None Normal [facility] SURGICAL PATHOLOGYon 020 SURGICAL PATHOLOGY Specimen originated from [facility] Specimen #: [id number] Submitting Physician: STEVEN GUEVARA JR, MD FINAL [...] reamings. The additional tissue appears grossly unremarkable. Railway Signal Operator sections are submitted in formalin as follows: A1 soft tissue, A2 bone after a period of decalcification. [facility]/adb 05/04/2020 Gross examination performed at [facility] [facility], [address] [place], [place] [address] [address] Date of Report: 05/09/2020 Date of Procedure: 05/03/2020 Date of Receipt: 05/03/2020 Submitted by: STEVEN GUEVARA JR, MD Location: [facility] Diagnostic interpretation performed at [facility], [address], [facility] [address]. CLIA Number: [id number] Normal [facility] Reference Lab Comment on above: Performed By: [...] IMPRESSION: Status post hip arthroplasty, normal alignment Medical Clerical Assistant: PSCB Transcribe Date/Time: May 03 2020 4:05P Dictated by : JUAN LUIS RUSSELL MD This examination was interpreted and the report reviewed and electronically signed by: JUAN LUIS RUSSELL MD on May 03 2020 4:07PM EST [id number] [facility] ALISIA CORREA ([id number]) 1960 M Date Time Provider Department 05/02/20 [...] Hives Date Reviewed: 04/24/2020 Reviewed by: Britney ([facility]) Trent - Fully Assessed Reason [...] More... Hyperlipidemia [E78.5] 12/07/2017 More... Ulcerative lesion [BSC6705] 12/07/2017 07/21/2019 Shoulder arthritis [M19.019] 12/29/2017 Status [...] Encounter Status:Closed by VJ JORGE on 05/02/20 [facility] NURSING PROGon 04-25-2020 NURSING PROG HNO ID: [id number] Author: Niyah JerryRn) ALFONSO Golden Service: Anesthesiology [...] Golden RN April 30, 2020 2:36 PM [facility] Type and SCR (30D)on 020 ABO/RH(D) Negative [facility] HOSPon 04-12-2020 HOSP Patient:Eddi Correa [...] long-term current use of insulin ([facility]) [E11.9] Chronic pain syndrome [G89.4] COPD with chronic bronchitis ([facility]) [J44.9] Arthritis of knee [M17.10] Primary osteoarthritis [...] significance) [D47.2] PD (Parkinson's disease) ([facility]) [G20] Dysphagia [R13.10] 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 Progress Notes (PT [employer]): Tomeka Reyes 04/19/2020 4:51 PM Signed Patient is scheduled for post-op Physical Therapy at [facility] ([phone])on 05/07/20 @ 2:45. They want patient to arrive 10 to 15 min early. Fax PT order to [phone]. Normal [facility] Basic Metabolic Panlon 11-09 Anion gap [Moles/Vol] 8 mmol/L Low 9-18 [facility] Calcium [Mass/Vol] 8.6 mg/dL Normal 8.5-10.2 [facility] o[facility]ital Chloride [Moles/Vol] 101 mmol/L Normal 97-105 [facility] CO2 [Moles/Vol] 30 mmol/L Normal 22-30 [facility] ital Creatinine [Mass/Vol] 1.02 mg/dL Normal 0.73-1.22 [facility] eGFR- Amer. >60 Normal [facility] ospital GFR/1.73 sq M predicted among non-blacks MDRD (S/P/Bld) [Vol rate/Area] mL/min/{1.73_m2} Normal [facility] Comment on above: Result Comment: eGFR [...] GFR. Glucose [Mass/Vol] 110 mg/dL High 74-99 [facility] Comment on above: Result Comment: The [place] Diabetes Association (ADA) provides guidance for cutoff [...] Standards of Medical Care in Diabetes 2016, [place] Diabetes Association. Diabetes Care. 2016.39(Suppl 1). Potassium [Moles/Vol] 4.1 mmol/L Normal 3.7-5.1 [facility] Sodium [Moles/Vol] 139 mmol/L Normal 136-144 [facility] o[facility] Urea nitrogen [Mass/Vol] 18 mg/dL Normal 9-24 [facility] CBCon 11-09-2019 Absolute nRBC <0.01 Normal <0.01 [facility] al Erythrocyte distribution width (RBC) [Ratio] 13.7 % Normal 11.5-15.0 [facility] Hematocrit (Bld) [Volume fraction] 39.6 % Normal 39.0-51.0 [facility] Hemoglobin (Bld) [Mass/Vol] 12.5 g/dL Low 13.0-17.0 [facility] MCH (RBC) [Entitic mass] 30.2 pG Normal 26.0-34.0 [facility] MCHC (RBC) [Mass/Vol] 31.6 g/dL Normal 30.5-36.0 [facility] MCV (RBC) [Entitic vol] 95.7 fL Normal 80.0-100.0 [facility] Platelet mean volume (Bld) [Entitic vol] 11.8 fL Normal 9.0-12.7 [facility] l Platelets (Bld) [#/Vol] 129 10*3/uL Low 150-400 [facility] RBC (Bld) [#/Vol] 4.14 10*6/uL Low 4.20-6.00 [facility] WBC (Bld) [#/Vol] 6.62 10*3/uL Normal 3.70-11.00 [facility] CONSULT PROGon 11-09-2019 CONSULT PROG HNO ID: [id number] Author: Lenora Alarcon Service: Hospital Medicine Author [...] Associate Staff, Department of Hospital Medicine Clinical Editorial Managerbeer brewer [facility], [facility] Pager [phone] / [phone] Normal [facility] NURSING PROGon 11-09-2019 NURSING PROG HNO ID: [id number] Author: Renae (Rn) ALFONSO Greco Service: ? Author Type: Registered Nurse Type: Nursing Progress Note Filed: 11/09/2019 8:43 PM Note Text: Nursing Progress Note Patient Name: Alisia Correa Patient Location: [place] [address] [address] Daily Note: Pt up in chair awake [...] note was completed by: Renae Greco RN [facility] PLAN OF CAREon 11-09-2019 PLAN OF CARE HNO ID: [id number] Author: Rita Arias (Chief Psychology) Service: ? Author Type: Human Geography Instructor Type: Plan of Care Filed: 11/09/2019 10:31 AM Note Text: CROWN IRONER OPERATOR BEDSIDE DELIVERY SURVEY 1. Patient to use [facility] Bedside Delivery - NO prefer own pharmacy Insurance Information as follows: 2. Insurance card on file - N/A 3. Credit card for payment - N/A [facility] PROGRESSon 11-09-2019 PROGRESS HNO ID: [id number] Author: Demetris Naik Service: ? Author Type: Physician Maintenance And Operations Supervisor Type: Progress Notes Filed: 11/09/2019 7:49 AM [...] for DC home today with [facility] if independent with physical therapy [...] ([facility]) Dysphagia Psychosis Due to Parkinson's Disease ([facility]) Osteoarthritis of Left Hip Open Wound of [...] 0747 -- 11/08/19 1315 pneumatic compression stockings (fl,oh) 11/08/19 1315 graduated compression stockings (fl,oh) 11/08/19 1315 graduated compression stockings (fl,oh) 11/08/19 1315 activity - mobilize patient (fl,oh) 11/08/19 1315 activity - mobilize patient (fl,oh) 11/08/19 1315 activity - mobilize patient (fl,oh) VTE Prophylaxis: VTE prophylaxis appropriate POST OPERATIVE COMPLICATIONS: Complicated by: uneventful/none SIGNATURE: Demetris Naik PA-C PATIENT NAME: Alisia Correa DATE: November 09, 2019 TIME: 7:48 AM PAGER/CONTACT #: [phone] [facility] PT EDon 11-09-2019 PT ED HNO ID: [id number] Author: Shelley Givens (Pharmacist) Service: Pharmacy Author [...] These medications were sent to e- [facility]-[place] [address] [address] [facility] - [phone] [address] [facility] [address] ? aspirin, enteric coated 81 mg EC tablet ? oxyCODONE IR 5 mg immediate release tablet You can get these medications from any pharmacy You don't need a prescription for these medications ? acetaminophen 325 mg tablet Normal [facility] PT ED HNO ID: [id number] Author: Shelley Givens (Pharmacist) Service: Pharmacy Author [...] and Indicates understanding of topic ÁLVARO HUSAIN Normal [facility] THERAPY NTon 11-09-2019 THERAPY NT HNO ID: [id number] Author: Oumou Mccarthy Service: Physical Therapy Author Type: Physical Therapist Type: Therapy (PT/OT/Speech/Resp) Filed: 11/09/2019 2:56 PM Note Text: Physical Therapy Treatment SERVICE DATE: 11/09/2019 SERVICE TIME: 1105 to 1150 ROOM: [id number] Recommended Discharge Disposition: Outpatient Physical Therapy Anticipated [...] Diagnosis: Reduced mobility-other Interventions Provided: Gait Training (14729);Therapeutic Exercise (75810) Therapeutic Exercise (56988) Treatment Minutes: 15 1 unit Skilled Intervention(s): [...] 3x/day, 2 sets for 10 Gait Training (81087) Treatment Minutes: 30 2 units Skilled Intervention(s): [...] November 09, 2019 TIME: 2:52 PM Normal [facility] THERAPY NT HNO ID: [id number] Author: Katharina (OtSajan Moser Service: Occupational Therapy Author Type: Occupational Therapist Type: Therapy (PT/OT/Speech/Resp) Filed: 11/09/2019 2:29 PM Note Text: Occupational Therapy Evaluation SERVICE DATE: 11/09/2019 SERVICE TIME: 0850 to 0946 ROOM: [place] [address] Recommended Discharge Disposition: Home Anticipated Discharge Needs: [...] living (ADL);Muscle Weakness (generalized) Interventions Provided: Evaluation;Self Half-Way Management (06455) $ Evaluation-Low (54630) Billed Units: 1 unit Self Half-Way Management (20355) Treatment Minutes: 38 3 units Skilled Intervention(s): [...] body dressing. Instructions and demonstration with a barrel and receiver aligner, sock aide, dressing stick and long handled [...] DATE: November 09, 2019 TIME: 12:33 PM [facility] ANES Brian 11-08-2019 ANES POST HNO ID: [id number] Author: Ashley Guerrier Service: Anesthesiology Author Type: [...] 1302 Resp: 20 12 16 14 11/08/19 11411/08/19 1200 11/08/19 12111/08/19 1302 SpO2: 96% 95% 94% 96% Validated [...] 08, 2019 TIME: 1:16 PM PAGER/CONTACT #: [facility] ANES PREOPon 11-08-2019 ANES PREOP HNO ID: [id number] Author: Ashley Guerrier Service: Anesthesiology Author Type: [...] Complication, Without Long-Term Current Use of Insulin ([facility]) Chronic Pain Syndrome Copd With Chronic Bronchitis ([facility]) Arthritis of Knee Primary Osteoarthritis of Right [...] of Unknown Significance) Pd (Parkinson's Disease) ([facility]) Dysphagia Psychosis Due to Parkinson's Disease ([facility]) Osteoarthritis of Left Hip PAST MEDICAL HISTORY [...] Laterality Date - COLONOSCOP W/ OR W/O [facility] SPEC Colonoscopy - EGD W/O OR W/BRUSH/WASH [...] November 08, 2019 TIME: 8:55 AM CSN: [id number] Normal [facility] Basic Metabolic Panlon 11-08 Anion gap [Moles/Vol] 11 mmol/L Normal 9-18 [facility] Calcium [Mass/Vol] 8.9 mg/dL Normal 8.5-10.2 [facility] Chloride [Moles/Vol] 106 mmol/L High 97-105 [facility] CO2 [Moles/Vol] 25 mmol/L Normal 22-30 [facility] Creatinine [Mass/Vol] 0.95 mg/dL Normal 0.73-1.22 [facility] eGFR- Amer. >60 Normal [facility] GFR/1.73 sq M predicted among non-blacks MDRD (S/P/Bld) [Vol rate/Area] mL/min/{1.73_m2} Normal [facility] Comment on above: Result Comment: eGFR [...] ospital Comment on above: Result Comment: The [place] Diabetes Association (ADA) provides guidance for cutoff [...] Standards of Medical Care in Diabetes 2016, [place] Diabetes Association. Diabetes Care. 2016.39(Suppl 1). Potassium [Moles/Vol] 4.3 mmol/L Normal 3.7-5.1 [facility] Sodium [Moles/Vol] 142 mmol/L Normal 136-144 [facility] Urea nitrogen [Mass/Vol] 23 mg/dL Normal 9-24 [facility]: [id number] Author: Ashley (Rn) ALFONSO Sands Service: Care Management Author Type: Registered Nurse Type: Care Mgt Initial Assessment Filed: 11/08/2019 3:02 PM Note Text: CARE MANAGEMENT: ASSESSMENT AND DISCHARGE PLAN SERVICE DATE: November 08, 2019 SERVICE TIME: 3:01 PM PRIMARY CARE PHYSICIAN: Ellen Crabtree DO ADMISSION STATUS: Extended Recovery Needs Prior to Discharge: OT/PT Evaluation 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 Attempted to Assist with AD Completion: Yes [...] Information Primary Emergency Contact: Dipti Correa Address: [address] [place] [address] Mobile Relation: Spouse Contact Resources: Family Social [...] Completely I feel financially burdened by my [id number]-[id number] expenses for my prescription medication:: 0 - Agree Somewhat Risk Score: 0 Patient is categorized as: Low risk < 2 Are you interested in bedside delivery of your medications? Yes Is Patient Psychosocially Complex?: No ASSESSMENT AND PLAN: Medical Needs: Medical Needs: None Psychosocial Needs: Psychosocial Needs: None FREEDOM OF CHOICE EXPLAINED: [place] of Choice Given: No Reason Not Given: No placements necessary POTENTIAL TRANSITION PLANS Outpatient Therapy Patient has equipment. Patient is scheduled for outpatient therapy on 11/11 at [place]. SIGNATURE: Ashley Sands RN PATIENT NAME: Alisia Correa DATE: November 08, 2019 TIME: 3:01 PM PAGER/CONTACT #: [phone] [facility] 11-08-2019 Absolute nRBC <0.01 Normal <0.01 [facility] Erythrocyte distribution width (RBC) [Ratio] 13.9 % Normal 11.5-15.0 [facility] Hematocrit (Bld) [Volume fraction] 44.3 % Normal 39.0-51.0 [facility] Hemoglobin (Bld) [Mass/Vol] 14.2 g/dL Normal 13.0-17.0 [facility] MCH (RBC) [Entitic mass] 30.4 pG Normal 26.0-34.0 [facility] MCHC (RBC) [Mass/Vol] 32.1 g/dL Normal 30.5-36.0 [facility] MCV (RBC) [Entitic vol] 94.9 fL Normal 80.0-100.0 [facility] Platelet mean volume (Bld) [Entitic vol] 11.7 fL Normal 9.0-12.7 [facility] Platelets (Bld) [#/Vol] 159 10*3/uL Normal 150-400 [facility] RBC (Bld) [#/Vol] 4.67 10*6/uL Normal 4.20-6.00 [facility] WBC (Bld) [#/Vol] 10.50 10*3/uL Normal 3.70-11.00 [facility] CONSULTon 11-08-2019 CONSULT HNO ID: [id number] Author: Bhupendra Chacon Service: Podiatry Author Type: Physician Type: Consults Filed: 11/08/2019 4:17 PM Note Text: Patient Visit for Alisia Cox Primoparas 1960 59 year old male CONSULTING PHYSICIAN [...] Yes 5. PD (Parkinson's disease) ([facility]) POA: Yes 6. Nicotine use [...] Laterality Date - COLONOSCOP W/ OR W/O [facility] SPEC Colonoscopy - EGD W/O OR W/BRUSH/WASH 2015 EGD - HAND SURGERY HX Right - MAL LESION FACE,EAR,EYEL 0.6-1CM 06/27/10 Performed by GEROGINA SEAMAN at [facility] - OTHER ACCESSORY [...] intact Lower extremity tested with 10 gram [place]-Nichole monofilament No evidence of diabetic peripheral sensory [...] to be well informed. Bhupendra Chacon DPM [facility] CONSULT HNO ID: [id number] Author: SHRAVAN Christian Service: Hospital Medicine Author Type: Physician Maintenance And Operations Supervisor Type: Consults Filed: 11/08/2019 2:36 PM Note Text: DEPARTMENT OF HOSPITAL MEDICINE INITIAL CONSULT SERVICE DATE: 11/08/2019 SERVICE TIME: 1:14 PM Primary Care Physician: Ellen Crabtree, NIGHT AND WEEKEND COVERAGE: Days: [phone], please page me for patient issues. Nights: [phone], please page [facility] Hospitalist Night coverage pager [phone] REASON FOR CONSULT: Medical Management REQUESTING PHYSICIAN: [...] with ambulation. States his son is a poultry hatchery manager but is unaware of his current [...] Laterality Date - COLONOSCOP W/ OR W/O [facility] SPEC Colonoscopy - EGD W/O OR W/BRUSH/WASH [...] SCM 08/06/2010 Performed by GEORGINA SEAMAN at [facility] - TOTAL KNEE REPLACEMENT Left [...] - Levaquin [Levofloxa* Hives REVIEW OF SYSTEMS: YARD MANAGER: history of Parkinson' s Disease RESP: history [...] home meds PD (Parkinson's disease) ([facility]) POA: Yes Assessment AND Plan: [...] Early Ambulation Disposition: Home with [facility] Plan of care discussed with: Provider, RN, Patient SIGNATURE: SHRAVAN Christian PATIENT NAME: Alisia Correa DATE: November 08, 2019 TIME: 1:15 PM PAGER/CONTACT #: [phone] [facility] NURSING PROGon 11-08-2019 NURSING PROG HNO ID: [id number] Author: Jessica (Rn) ALFONSO Joe Service: Nursing Author Type: Registered Nurse Type: Nursing Progress Note Filed: 11/08/2019 7:25 PM Note Text: Nursing Progress Note Patient Name: Alisia Correa [facility] Daily Note: 1330 Pt admitted to [...] note was completed by: Jessica Joe RN [facility] OPERATIVE NOon 11-08-2019 OPERATIVE NO HNO ID: [id number] Author: Steven Guevara Jr. Service: Orthopaedic Surgery Author Type: Physician Type: Operative Report Filed: 11/08/2019 2:08 PM Note Text: [facility] OPERATIVE REPORT PATIENT NAME: Alisia Correa AGE: [age] year old LOG ID: [id number] Surgery Date: 11/08/2019 SURGEON: Steven Guevara M.D. STRANNER: Vj Jorge PA-C, his assistance consisted of [...] banked allogenic blood if medically necessary. IMPLANTS: Royal Treatment [employer] [facility]opa[facility] Total Hip System SIZE TYPE Acetabulum [...] dislocated. Proximal femoral osteotomy was performed. The boxing and pressing supervisor osteotome was utilized to lateralize the starting [...] November 08, 2019 TIME: 11:07 AM Normal [facility] PLAN OF CAREon 11-08-2019 PLAN OF CARE HNO ID: [id number] Author: Shelley Givens (Pharmacist) Service: Pharmacy Author [...] Itching - Levaquin [Levofloxa* Hives Preferred Pharmacy: [email or web address] [place] [address] [address] [facility] - [phone] Current DIRECTOR EDUCATION Medications: Prior to Admission medications as of [...] GIVENS, PHARMACIST November 08, 2019 1:53 PM [facility] PROGRESSon 11-08-2019 PROGRESS HNO ID: [id number] Author: Niesha () Elpidio Cobb Service: ? Author Type: Human Geography Instructor Type: Progress Notes Filed: 11/08/2019 12:05 PM [...] Stiles RT November 08, 2019 12:05 PM [facility] PT EDon 11-08-2019 PT ED HNO ID: [id number] Author: Catherine (Rn) ALFONSO Basurto Service: Nursing [...] Signed By: Catherine Basurto RN In Department: [facility] SURGERY [facility] SURGICAL PATHOLOGYon 020 SURGICAL PATHOLOGY Specimen originated from [facility] Specimen #: [id number] Submitting Physician: STEVEN GUEVARA JR, MD FINAL [...] Sectioning does not reveal any avascular necrosis. Railway Signal Operator sections are submitted as follows: A1 soft tissue, A2 bone submitted after decalcification. BF/slb 11/08/2019 Gross examination performed at [facility], [address] [place] [address] Date of Report: 11/14/2019 Date of Procedure: 11/08/2019 Date of Receipt: 11/08/2019 Submitted by: STEVEN GUEVARA JR, MD Location: [facility] Diagnostic interpretation performed at [facility], [address] [place] [address]. CLIA Number: [id number] Normal [facility] Reference Lab Comment on above: Performed By: #### S #### See report for performing lab information. THERAPY NTon 11-08-2019 THERAPY NT HNO ID: [id number] Author: Oumou Witt (PtSajan Mccarthy Service: Physical Therapy Author Type: Physical Therapist Type: Therapy (PT/OT/Speech/Resp) Filed: 11/08/2019 2:54 PM Note Text: Physical Therapy Evaluation SERVICE DATE: 11/08/2019 SERVICE TIME: 1325 to 1415(8 min for pharmacist to review meds) ROOM: [place] [address] Recommended Discharge Disposition: Outpatient Physical Therapy Recommended Discharge Equipment: No equipment needs anticipated PT Recommendations to Nursing: Ambulate with device;To bathroom;In halls;Transfer to/from chair;OOB for Meals;With assist of 1 person Device: Standard Walker PT 6 Clicks Score: 20 Precautions/Activity Restrictions: Total Hip Replacement;Weight Bearing Restrictions;Hip Precautions - Posterior Dislocation(S/P L [place] (Sara) Extremity With Weight Bearing Restricted: Left Lower [...] Diagnosis: Reduced mobility-other Interventions Provided: Evaluation;Therapeutic Exercise (35776);Gait Training (20281);Therapeutic Activity (82452) $ Evaluation-Low (11961) Billed Units: 1 unit Therapeutic Exercise (97224) Treatment Minutes: 12 1 unit Skilled Intervention(s): [...] position: LAQ X10 B LE Therapeutic Activity (82614) Treatment Minutes: 3 Skilled Intervention(s): Instructed patient in supine to sit pushing with upper extremities to sit up Gait Training (33419) Treatment Minutes: 12 1 unit Skilled Intervention(s): [...] DATE: November 08, 2019 TIME: 2:49 PM [facility] XR PELVIS 1V APon 11-08-2019 [...] IMPRESSION: Left total hip prosthesis in place. Medical Clerical Assistant: PSCB Transcribe Date/Time: Nov 08 2019 12:43P Dictated by : LIGIA EDWARDS MD This examination was interpreted and the report reviewed and electronically signed by: LIGIA EDWARDS MD on Nov 08 2019 12:44PM EST [id number] [facility] NURSING PROGon 10-24-2019 NURSING PROG HNO ID: [id number] Author: Geneva JerryRn) ALFONSO Goins Service: Nursing Author Type: Registered [...] Urine C+S: 10-18-19 treated by provider STAAMP: 08-18-19 positive for staph and treated by the surgeon TYPE AND SCREEN: Date 10-18-19 Imaging Within Last 12 Months: N/A Cardiac Testing: EKG in last 12 Months: Yes: Date: 10-18-19, Comment: epic BMI Percentile (PEDS): N/A Risk Assessment: N/A Anesthesia Review: N/A Narrative: N/A Pre-op Considerations: Diabetic Has spinal cord stimulator Chart Check: COMPLETED Geneva Goins RN October 24, 2019 1:40 PM [facility] Type and SCR (30D)on 019 ABO/RH(D) Negative [facility] CNCOon 01-01-2018 CNCO Letter Latosha Correa [id number] [place], [place] [address]Alisia Correa[address] [address]Kvxg Mr. Correa:The nurses and staff of the 5th floor Orthopedic nursing unit at [facility], a [facility], hope this letter finds you feelingwell [...] free to contact me, Dianna Villarreal at [phone] [email or web address] lly, you will receive a survey in the mail asking you to rate thecare you received while in the hospital. Please take the time to completeand send back the survey, as it is essential to our continued success. Ipersonally review all the results and would appreciate your feedback.Thank you in advance for your participation and thank you for choosing [facility] for your healthcare needs. Sincerely,Dianna Villarreal, MSN, RNNurse Edemrqv6sd Floor OrthopedicsEWilliam Ville [email or web address] Normal [facility] Basic Metabolic Panlon 12-31 Anion gap 9 mmol/L Normal 0-15 [facility] Calcium 8.3 mg/dL Low 8.5-10.5 [facility] Chloride 104 mmol/L Normal 98-110 [facility] CO2 25 mmol/L Normal 23-32 [facility] Creatinine 0.98 mg/dL Normal 0.7-1.4 [facility] Glucose mass conc 125 mg/dL High 65-100 [facility] Potassium molar conc 3.5 mmol/L Normal 3.5-5.0 [facility] Sodium 138 mmol/L Normal 135-146 [facility] Urea nitrogen 15 mg/dL Normal 8-25 [facility] CASE MANAGEMon 12-31-2017 CASE MANAGEM HNO ID: [id number] thor: Peace (Rn) Fletcher, RNService: Case ManagementAuthor [...] report completed, dc summaryto be faxed, spoke w. AkashIGNATURE: Peace Bynum RN PATIENT NAME: Alisia CorreaDATE: December 31, 2017 : 10:40 AM PAGER/CONTACT #: [phone] Normal [facility] CBCon 12-31-2017 Erythrocyte distribution width Auto Ratio (RBC) 15.3 % High 11.5-15.0 [facility] Erythrocytes (RBC) 3.45 10*6/uL Low 4.20-6.00 [facility] Hematocrit (HCT) 29.7 % Low 39.0-51.0 [facility] Hemoglobin mass conc (Bld) 9.6 g/dL Low 13.0-17.0 [facility] MCH 27.8 pG Normal 26.0-34.0 [facility] MCHC mass conc (RBC) 32.3 g/dL Normal 30.5-36.0 [facility] MCV 86.1 fL Normal 80.0-100.0 [facility] Platelet mean volume (PMV) 13.3 fL High 9.0-12.7 [facility] Platelets 112 10*3/uL Low 150-400 [facility] Comment on above: Result Comment: Samp le checked for a clot. WBC (Leukocytes) 6.00 10*3/uL Normal 3.70-11.00 [facility] CNDSon 12-31-2017 CNDS HNO ID: [id number] thor: Candida (Res) LulúmoodService: Orthopaedic SurgeryAuthor Type: ResidentType: Discharge SummariesFiled: 01/01/2018 [...] surgery. [facility] Surgery was scheduledand [...] NRESMN NREST S Bldg01/12/2018 10:00 AM Evangelist Gilliland RN ORTHQUINTON [facility] MEDIC02/08/2018 2:00 PM XR EUCLID [...] BM > 48 hrs.Print RX, Disp-120 mL, F-5wwommcmxej-tahiyvtgmt (SYMBICORT) 160-4.5 mcg/actuation inhalerInhale 2 Puffs as instructed twice daily.Med Update, R-0DULoxetine (CYMBALTA) 60 mg capsuleTake 1 capsule by mouth once daily.Med Update, R-0sucralfate (CARAFATE) 1 gram tabletTake 1 tablet by mouth four times daily.Med Update, A-0CIYSLSBJ-MUG/FA/LYCOPE N/LUTEIN (CENTRUM SILVER ULTRA MEN'S ORAL)Take 1 tablet by mouth once daily.Historical Medamitriptyline 25 mg ORAL tabletTake 50 mg by mouth daily at bedtime.Historical Med, R-0tamsulosin (FLOMAX) 0.4 mg ORAL Cw47Vqjf 2 capsules by mouth daily at bedtime.Mail [...] December 31, 2017 : 6:26 AM PAGER: [phone] [facility] NURSING PROGon 12-31-2017 NURSING PROG HNO ID: [id number] thor: Charlotte JerryRn) Hipolito RNService: (none)Author Type: Registered NurseType: Nursing Progress NoteFiled: 12/31/2017 2:04 PMNote Text: Nursing Progress NotePatient Name: Alisia CorreaMRN: [id number] Location: [address]-* Dai ly Note:0800 awake, alert for am [...] note was completed by: Charlotte Mcmillan RN [facility] PROGRESSon 12-31-2017 PROGRESS HNO ID: [id number] thor: Macrina (Kaushal) DionService: General Internal MedicineAuthor Type: Nurse PractitionerType: Progress NotesFiled: 12/31/2017 5:07 PMNote Text:INPATIENT PROGRESS NOTESName: Alisia CorreaMRN: [id number] of Service: December 31, 2017SUBJECTIVE: Seen and [...] plan of care with Dr. Blair.Macrina Thomason, [facility] 20175:00 PM [facility] PROGRESS HNO ID: [id number] thor: Candida (Res) MahmoodService: Orthopaedic SurgeryAuthor Type: ResidentType: Progress NotesFiled: 12/31/2017 6:26 AMNote Text:ORTHOPAEDIC SURGERY PROGRESS NOTEPatient: Alisia CorreaMRN: [id number]: Procedure(s) (LRB):ARTHROPLASTY TOTAL SHOULDER; W/ GLENOID AND [...] Insulin (Hcc)Chronic Pain SyndromeCopd With Chronic Bronchitis ([facility])Arthritis of KneePrimary Osteoarthritis of Right KneeOa (Osteoarthritis) [...] m/u/r/ax2+ radialLABS:CBC, Coags, BMP, Mg, PhosRecent Labs 422 444WBC 6.00 7.10HB 9.6* 9.7*HCT 29.7* 29.6*PLT 112* 128*NA 138 --K 3.5 --CHLOR 104 --CO2 25 --BUN 15 --CREAT 0.98 --GLUC 125* --CA 8.3* --DATA:Diagnostic tests reviewed for today's visit:Most recent labsMost recent imagingBilal MD Bi12/30/2017Orthopaedic Surgery PGY-2Pager: [phone] [facility] THERAPY NTon 12-31-2017 THERAPY NT HNO ID: [id number] thor: Cyn (Ot) RockopherService: Occupational TherapyAuthor Type: Occupational TherapistType: Therapy (PT/OT/Speech/Resp)Filed: 01/04/2018 4:15 PMNote Text:Occupational Therapy TreatmentSERVICE DATE: 12/31/2017SERVICE TIME: 1300 to 1338ROOM: [address]WA-[id number] Discharge Disposition: HomeAnticipated Discharge Needs: Physical Assist [...] mobility-other;Decreased activities of dailyliving (ADL)Interventions Provided: Self Half-Way Management (66479);TherapeuticExerci se (91528)Therapeutic Exercise (21525) Treatment Minutes: 101 unitSkilled Intervention(s): Instruction in therapeutic exerciseFacilitation of muscle control, optimal recruitment and alignmentEducation in PROM in supine to L shoulder to 90 degrees. present and follow instruction, with proper techniqueSelf Half-Way Management (49359) Treatment Minutes: 282 unitsSkilled Intervention(s): Instructed in [...] evaluation/treatment.SIGN ATURE: INDU Ray/L PATIENT NAME: Alisia CorreaDATE: December 31, 2017 : 2:25 PM PAGER: [phone] [facility] CASE MANAGEMon 12-30-2017 CASE MANAGEM HNO ID: [id number] thor: Peace JerryRn) Bynum, RNService: Case ManagementAuthor Type: Registered NurseType: Care [...] 30, 2017 : 11:07 AM PAGER/CONTACT #: [phone] [facility] CASE MGT INIT [facility] 2017 CASE MGT INIT [facility] HNO ID: [id number] thor: JAMIE Vivar Rnervice: Case ManagementAuthor Type: Registered NurseType: Care Mgt Initial AssessmentFiled: 12/30/2017 11:07 AMNote Text:CARE MANAGEMENT: ASSESSMENT AND DISCHARGE PLANSERVICE DATE: 12/30/2017SERVICE TIME: 9:50amPRIMARY CARE PHYSICIAN:Katelynn Wolfne: [phone] STATUS: InpatientNeeds Prior to Discharge: Ready for DischargeMEDICAL: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 NoSOCIAL:Living Arrangement: HomeLives With: SpouseFinancial Resources: Employed: .Primary Contact: Extended Emergency Contact InformationPrimary Emergency Contact: Armen Correaddress: [phone] [address] Qzlqchci: SpouseSupportive: NoOther Important Patient Contacts: NoneCaregiver Assessment:Caregiver [...] - 0I feel financially burdened by my tql-mg-qnabpr expenses for myprescription medication: Agree mostly - [...] fallsPsychosocial Needs: NoneFREEDOM OF CHOICE EXPLAINED:N/APOTENTIAL TRANSITION VVPMMIjxj47 yo male admitted for TSA. Patient is alert and oriented x3, followscommands and moves all extremities, reports iNDP DIRECTOR EDUCATION. Lives at home w.Spouse who is able to assist as needed. No falls or safety concerns athome. No snf or hhc in the past. PCP is Dr Crabtree whom patient follows [facility]. Therapy recommends home w./ HEP. Anticipate dc home post opday 1 pending medical and therapy clearance. Cm to cont to followSIGNATURE: Peace Bynum RN PATIENT NAME: Alisia CorreaDATE: December 30, 2017 : 11:00 AM PAGER/CONTACT #: [phone] Normal [facility] CBCon 12-30-2017 Erythrocyte distribution width Auto Ratio (RBC) 15.2 % High 11.5-15.0 [facility] Erythrocytes (RBC) 3.44 10*6/uL Low 4.20-6.00 [facility] Hematocrit (HCT) 29.6 % Low 39.0-51.0 [facility] Hemoglobin mass conc (Bld) 9.7 g/dL Low 13.0-17.0 [facility] MCH 28.2 pG Normal 26.0-34.0 [facility] MCHC mass conc (RBC) 32.8 g/dL Normal 30.5-36.0 [facility] MCV 86.0 fL Normal 80.0-100.0 [facility] Platelet mean volume (PMV) 12.6 fL Normal 9.0-12.7 [facility] Platelets 128 10*3/uL Low 150-400 [facility] Comment on above: Result Comment: [facility] le checked for a clot. WBC (Leukocytes) 7.10 10*3/uL Normal 3.70-11.00 [facility] CONSULTon 12-30-2017 CONSULT HNO ID: [id number] thor: Reagan Mesaice: General Internal MedicineAuthor Type: PhysicianType: ConsultsFiled: 12/30/2017 9:00 PMNote Text:HISTORY AND PHYSICAL EXAMINATIONPATIENT NAME: Alisia CorreaMRN: [id number] DATE: 12/30/2017SERVICE TIME: 1030PRIMARY CARE PHYSICIAN: NANCY [...] HISTORYProcedure Laterality Date- COLONOSCOP W/ OR W/O [facility] SPEC Colonoscopy- EGD W/O OR W/BRUSH/WASH 2016 [...] meals and at bedtime. Disp: Rfl: 12/28/2017 xl4107eclkxalkaq (VIAGRA) 100 mg tablet Take 100 mg by mouth as needed. Disp:Rfl: more then 1 weektopiramate (TOPAMAX) 100 mg tablet Take 2 tablets by mouth twice daily.Disp: 120 tablet Rfl: 5 12/28/2017 at 1930tiZANidine (ZANAFLEX) 4 mg tablet Disp: Rfl: 12/28/2017 at 0ranitidine (ZANTAC) 150 mg tablet once daily. Disp: [...] in the care of your patient.Macrina Thomason, [facility] 201711:58 AMmeds reordered. Check bs. Pain is okI have seen the patient and verified the exam. I have personally reviewedall labs and imaging results. I have discussed with the PT SKILLED and I haveparticipated in sifuentes components.I agree with the note as documented with additional comments if needed.The assessment and plan as outlined are reflection of our discussion.Reagan Blair MD [facility] NURSING PROGon 12-30-2017 NURSING PROG HNO ID: [id number] thor: Sotero (Rn) Amanda, RNService: (none)Author Type: Registered NurseType: Nursing Progress NoteFiled: 12/30/2017 10:14 PMNote Text: Nursing Progress NotePatient Name: Alisia CorreaMRN: [id number] Location: [facility]/ [place]-* Dai ly Note: Patient is resting in [...] note was completed by: SOTERO CHAVARRIA RN [facility] NURSING PROG HNO ID: [id number] thor: Cece (Rn) Jody, RNService: (none)Author Type: Registered NurseType: Nursing Progress NoteFiled: 12/30/2017 4:53 PMNote Text: Nursing Progress NotePatient Name: Alisia CorreaMRN: [id number] Location: [facility]/ [place]-* Dai ly Note: pt c/o pain to left underarm, med with percocet 2 tabs po, rtshoulder dsg intact with fresh ice pack applied, on q ball intact/ patent,lef shoulder immobilizer on, jacqueline sequentials on bilat, vs stable, ptstates cannot go home today. Pt states that his works to 6 pm and helive 2 hours away from [id number] pt resting in bed with no change in status, no needs at this timeThis note was completed by: Cece Vera RN [facility] PROGRESSon 12-30-2017 PROGRESS HNO ID: [id number] thor: Candida (Res) MahmoodService: Orthopaedic SurgeryAuthor Type: ResidentType: Progress NotesFiled: 12/30/2017 6:27 AMNote Text:ORTHOPAEDIC SURGERY PROGRESS NOTEDATE: 12/30/2017TIME: 5:54 AMPatient: Alisia Cox SunnyMRN: [id number]: Procedure(s) (LRB):ARTHROPLASTY TOTAL SHOULDER; W/ GLENOID AND PROXIMAL HUMERAL REPLACEMENT(Left)Date: 12/29/2017Staff: Sergey Jayden MabeliIMPRESSION/PLAN: a 57 year old male s/p Left [...] Complication, Without Long-Term CurrentUse of Insulin ([facility])Chronic Pain SyndromeCopd With Chronic Bronchitis ([facility])Arthritis of KneePrimary Osteoarthritis of Right KneeOa (Osteoarthritis) of KneeGlenohumeral Arthritis, LeftEssential TremorAsthmaDiabetes Mellitus (Hcc)Essential HypertensionHyperlipidemi aUlcerative LesionShoulder ArthritisSUBJECTIVE:No acute issue overnight, Comfortable, pain is better controlled,afebrile, No CP/SOBOBJECTIVE:VITAL SIGNS:BMI: Body mass index is 33.49 kg/(m2). 12/29/1822541BP: 101/68 99/58 95/56Pulse: 74 77 71Resp: 18 [...] radialLABS:CBC, Coags, BMP, Mg, PhosRecent Labs 444WBC 7.10HB 9.7*HCT 29.6*PLT 128*DATA:Diagnostic tests reviewed for today's visit:Most recent labsMost recent imagingBilal MD Bi12/30/2017Orthopaedic Surgery PGY-2Pager: [phone] [facility] THERAPY NTon 12-30-2017 THERAPY NT HNO ID: [id number] thor: Cyn (Ot) RockopherService: Occupational TherapyAuthor Type: Occupational TherapistType: Therapy (PT/OT/Speech/Resp)Filed: 12/30/2017 4:30 PMNote Text:Occupational Therapy TreatmentSERVICE DATE: 12/30/2017SERVICE TIME: 1600 to 1610ROOM: [address]WN-386-6Ccemtcmqezh Discharge Disposition: HomeAnticipated Discharge Needs: Physical Assist [...] activities of dailyliving (ADL)Interventions Provided: Therapeutic Exercise (10993)Therapeutic Exercise (71833) Treatment Minutes: 101 unitSkilled Intervention(s): Facilitation of [...] evaluation/treatment.SIGN ATURE: INDU Ray/L PATIENT NAME: Alisia CorreaDATE: December 30, 2017 : 4:29 PM PAGER: [phone] [facility] THERAPY NT HNO ID: [id number] thor: Cyn (Ot) Marcuservice: Occupational TherapyAuthor Type: Occupational TherapistType: Therapy (PT/OT/Speech/Resp)Filed: 12/30/2017 2:42 PMNote Text:Occupational Therapy EvaluationSERVICE DATE: 12/30/2017SERVICE TIME: 1055 to 1125ROOM: [facility] OK-[id number] Discharge Disposition: HomeAnticipated Discharge Needs: Physical Assist [...] activities of dailyliving (ADL)Interventions Provided: Evaluation;Therapeutic Exercise (76231);Self CareHome Management (91640)$ Evaluation-Moderate (54140) Billed Units: 1 unitTherapeutic Exercise (76152) Treatment Minutes: 101 unitSkilled Intervention(s): Instruction in therapeutic exercise PROM Lshoulder to 90 degrees in supineEducation in AROM distal to shoulder after brace comes off at home mid elf Half-Way Management (10717) Treatment Minutes: 131 unitSkilled Intervention(s): Instructed in [...] 1055)Self Care Goal Status (G8988): CK (12/30/17 105)Based on clinical assessment and the score on the 6 Clicks FunctionalAssessment Tool, the G code and corresponding severity modifiers aredocumented above.SUBJECTIVE:Current Hospital Course: Chart reviewed; Pt 57 yo M admitted on 12/29/17or L PAULINO by Dr Barney Report: I want to [...] details for this therapy evaluation/treatment.SIGN ATURE: Cyn Willson, OTR/L PATIENT NAME: Alisia CorreaDATE: December 30, 2017 : 2:34 PM PAGER: [phone] [facility] THERAPY NT HNO ID: [id number] thor: Pj (Pt) SulenService: Physical TherapyAuthor Type: Physical TherapistType: Therapy (PT/OT/Speech/Resp)Filed: 12/30/2017 1:25 PMNote Text:Physical Therapy EvaluationSERVICE DATE: 12/30/2017SERVICE TIME: 1140 to 1205ROOM: [address]ZK-160-6Zxvwqtfjjvz Discharge Disposition: Outpatient Physical Therapy (whenappropriate)Anticipa jacqueline [...] Diagnosis: Reduced mobility-otherInterventio ns Provided: Evaluation;Gait Training (52897)$ Evaluation-Low (28648) Billed Units: 1 unitGait Training (73863) Treatment Minutes: 232 unitsSkilled Intervention(s): Pt ambulated [...] ATURE: Pj Rueda PT PATIENT NAME: Alisia TillmanparasDATE: December 30, 2017 : 1:10 PM PAGER/CONTACT #: [phone] [facility] ANES Brian 12-29-2017 ANES POST HNO ID: [id number] thor: Ilsa NgServeronicae: AnesthesiologyAuthor Type: AnesthesiologistType: Anesthesia [...] 29, 2017 : 6:14 PM PAGER/CONTACT #: [facility] ANES PREOPon 12-29-2017 ANES PREOP HNO ID: [id number] thor: Ilsa Mcdanielse: AnesthesiologyAuthor Type: AnesthesiologistType: Anesthesia PreOpFiled: 12/29/2017 6:14 PMNote Text:REGIONAL ANESTHESIOLOGY DAY OF SURGERY NOTEPATIENT NAME: Alisia SimsN: [id number] :ALLERGIESAllergen Reactions- Avelox [Moxifloxaci* Rash, Hives, Itching, Shortness of Breath- Celebrex [Celecoxib] Rash, Hives, GI Upset- Erythromycin Base Hives, Shortness of Breath- Klonopin [Clonazepa* Itching- Levaquin [Levofloxa* HivesProcedure(s) (LRB):ARTHROPLASTY TOTAL SHOULDER; W/ GLENOID AND PROXIMAL HUMERAL REPLACEMENT(Left)Surgeon( s):Sergey Malikitals: [id number]: 116/61Pulse: 60Resp: 18Temp: 36.1 ?C (97 ?F)TempSrc: [...] (Hcc)Essential HypertensionHyperlipidemi aUlcerative LesionPAST MEDICAL HISTORYDiagnosis Date- 's esophagus- Closed fracture of rib(s), unspecified Rib fracture- Esophageal reflux BARRETS ESOPHAGUS- Hypertrophy of prostate with urinary obstruction and other lower urinarytract symptoms (LUTS) Hypertrophy of the prostate with obstruction- Impotence, organic- Unspecified asthma(493.90)- Unspecified sleep apnea Last us 2003, pt was 380 lbs at that time- Urinary calculus, unspecified Renal stonesPAST SURGICAL HISTORYProcedure Laterality Date- COLONOSCOP W/ OR W/O [facility] SPEC Colonoscopy- EGD W/O OR W/BRUSH/WASH 2015 [...] tablet by mouth daily at bedtime.12/28/2017 at 0 Yesatorvastatin (LIPITOR) 10 mg tablet Take 10 mg by mouth once daily. 10days ago Yesezetimibe (ZETIA) 10 mg tablet Take 10 mg by mouth once daily. 12/28/2017at 1930 YestraMADol 200 mg 24 hr tablet Take 1 tablet by mouth once daily for 90days. 12/28/2017 at 1929 Yesdocusate sodium (COLACE) 100 mg capsule Take [...] with meals and at bedtime. 12/28/2017 at 0 Yessildenafil (VIAGRA) 100 mg tablet Take 100 [...] 1 capsule by mouth once daily.12/28/2017 at 1929 Yessucralfate (CARAFATE) 1 gram tablet Take 1 [...] ringers infusion 5-30 mL/hr INTRAVENOUS CONTINUOUS Laura (Shravan)MeyerceFAZolin iv piggyback 2 g in D5W (iso-osmotic) [...] information obtained within 48 hours ofSurgery/Procedure.IMANI COELHO: dAy Umanzor MDDATE: December 29, 2017TIME: 12:45 PM [facility] BRIEF OP NOTon 12-29-2017 BRIEF OP NOT HNO ID: [id number] thor: Candida Castanedaervice: Orthopaedic SurgeryAuthor Type: ResidentType: Brief Op NoteFiled: 12/29/2017 5:35 PMNote Text:SHOULDERBRIEF OPERATIVE / PROCEDURE NOTELOG ID: [id number]/Procedure Date: 12/29/2017Incision/Procedu re Start Time: 3:04 PMIncision Close/Procedure End Time: 5:22 PMSurgeon(s)/Proceduralis t(s) and Maintenance And Operations Supervisor(s):Surgeon(s) and Role: * Sergey Perez - Primary * Watson Mireles - Fellow * Candida Pat - Resident - AssistingPhysician Maintenance And Operations Supervisor: Chato Arrieta (Pa) IIProcedure(s):Procedure( s) (LRB):ARTHROPLASTY TOTAL [...] Sergey Perez as scheduled in clinic, with L shoulderx-Eric Pat MD12/29/2017Orthopaedic Surgery PGY-2Pager: [phone]: Candida Pat MD PATIENT NAME: Alisia CorreaDATE: December 29, 2017 : 5:33 PM PAGER/CONTACT #: [phone] [facility] NURSING PROGon 12-29-2017 NURSING PROG HNO ID: [id number] thor: Ny JerryRn) JAMIE Hernandezervice: NursingAuthor Type: Registered NurseType: Nursing Progress NoteFiled: 12/30/2017 6:13 AMNote Text: Nursing Progress NotePatient Name: Alisia CorreaMRN: [id number] Location: [facility] [place]/ [place] Dai ly Note: Assumed care, pt sitting [...] note was completed by: NY HERNANDEZ RN [facility] NURSING PROG HNO ID: [id number] thor: JAMIE Rico Rnervice: (none)Author Type: Registered NurseType: Nursing Progress NoteFiled: 12/30/2017 10:50 AMNote Text: Nursing Progress NotePatient Name: Alisia CorreaMRN: [id number] Location: [place]/ [place]-* Dai ly Note: pt arrived from PACU via bed, A+OX3, oriented pt to room andcall light, left shoulder dsg with immobilizer and ice pack dry andintact, pillow placed behind left elbow, on q ball intact/ clamped, ptdenies pain at this time, vs stable, [place] at bedside ordering dietfor [id number] Reviewed daily medication list with pt, compared med list with MARand ordered appropriate medications that were missing from pt's MARThis note was completed by: Cece Vera RN [facility] OPERATIVE NOon 12-29-2017 OPERATIVE NO HNO ID: [id number] thor: Sergey Cerna: Orthopaedic SurgeryAuthor Type: PhysicianType: Operative ReportFiled: 12/29/2017 5:49 PMNote Text:[facility] [address] [place]OPERATIVE REPORTNAME: Alisia Correa [facility] #: [id number]: 12/29/2017 (3:04pm-5:22pm) AGE: 57SURGEON 1: Sergey Perez M.D.STRANNER: 1. Candida Pat M.D. 2. Watson Garcia D.O. 3. Chato ArrietaPAlejandroAAlejandroOPERATION: Left total shoulder arthroplasty with posteriorly augmentedglenoid component, biceps tenodesis.ANESTHESIA: General anesthesia with regional interscalene nerve block forpostoperative pain control.PREOPERATIVE DIAGNOSIS: Left shoulder primary glenohumeral osteoarthritis.POSTOPERAT MIREILLE DIAGNOSIS: Left shoulder primary glenohumeralosteoarthriti s, biceps [...] 48 mm, +7 mm STEPTECH anchor pegglenoid ([employer] STEPTECH APG) was then impacted into [...] humeral implant was, therefore, a 12 stem, gqmslarr363-trochg neck, with a 52 x 18 mm centered head ([employer] AP). Weplaced one, #2 Fiberwire suture [...] single rotator interval stitch wasthen passed in ihlwmj-ys-zgmnh fashion with a #2 Ticron suture and tieddown to close the lateral rotator interval and set the osteotomy piecesuperiorly. The two #2 Fiberwire sutures coming out of the bicipitalgroove were then sequentially passed in a thdcdu-bx-bwhsk fashion medialto the horizontal mattress and sequential [...] the wound was sterilely dressed with Adaptic, 1a3xxtbw, ABD dressing, and Foam tape. The shoulder [...] surgeon (Sergey Perez M.D.) withassistance from Candida Pta M.D., Watson Garcia D.O., and Jarek GoodenESTIMATED BLOOD LOSS: 250 ccDRAINS: noneSPECIMENS: noneCOMPLICATIONS: none apparentEric Wicho Perez M.D. [facility] PT EDon 12-29-2017 PT ED HNO ID: [id number] thor: Crystal (RnJAMIE Bronsonervice: NursingAuthor Type: Registered NurseType: Patient EducationFiled: 12/29/2017 12:00 PMNote Text:PRE OP LEARNING ASSESSMENTPROCEDURE/SURGE RY: SURGERY:READINESS TO LEARNCOGNITIVE ABILITY: Alert and orientedMOTIVATION TO LEARN: EagerInterestedFAMILY SUPPORT: High - Very involved in pt carePATIENT LEARNS BEST BY: Multiple MethodsFACTORS AFFECTING LEARNING: NonePHYSICAL LIMITATIONS AFFECTING LEARNING: NoneElectronically Signed By: Crystal Martin RN In Department: [facility] / TO COME IN [facility] XR SHOULDER SPECIFY 1V LTon 12-29-2017 [...] LOYD MD on Dec 29 2017 5:49PM [id number] [facility] NURSING PROGon 12-08-2017 NURSING PROG HNO ID: [id number] thor: Amaya (Rn) JAMIE Mitchellervice: (none)Author Type: Registered NurseType: Nursing Progress NoteFiled: 12/09/2017 8:48 AMNote Text:PACC Nurse Progress NoteHistory AND Physical:PACC Visit Date: 12/07/17Labs Within Last 6 Months:CBC: Date 12/07/17BMP/CMP: Date 12/07/17TYPE AND SCREEN: Date 12/07/17Imaging Within Last 12 Months:CT ScanDate of test: 11/06/17Cardiac Testing:EKG in last 12 Months: Yes: Date: 11/06/17, Comment: (NSR, with left axisdeviation)Risk Assessment:N/AAnesthesia Review:N/ANarrative:Per HPI: DM-oral medication; Current smoker; S/P gastric [id number]-mi Considerations:N/AChart Check:Christine Espinosa 2017 9:11 AM Normal [facility] Type and SCR (30D)on 018 ABO/RH(D) Negative Normal [facility] Antibody Screen Negative Normal [facility] HOSPon 11-13-2017 HOSP Patient:Eddi Correa LMRN: [...] mg ORAL tablettamsulosin (FLOMAX) 0.4 mg ORAL Bq01Muucggtao Sulfate 1.25 mg/3 mL INHALATION nebulizer solutionacarbose(PRECOSE [...] without complication, without long-term current use ofinsulin ([facility]) [E11.9]Chronic pain syndrome [G89.4]COPD with chronic bronchitis ([facility]) [J44.9]Arthritis of knee [M17.10]Primary osteoarthritis of right knee [M17.11]OA (osteoarthritis) of knee [M17.10]Glenohumeral arthritis, left [M19.012]Essential tremor [G25.0]Asthma [J45.909]Diabetes mellitus ([facility]) [E11.9]Essential hypertension [I10]Hyperlipidemia [E78.5]Ulcerative lesion [CDU2687]Allergies:Avelox [Moxifloxacin Hcl]Celebrex [Celecoxib]Erythromycin BaseKlonopin [Clonazepam]Levaquin [Levofloxacin]Date Verified: 12/29/17Lab ValuesLab Value Units Date High LowPOTA* 4.6 mmol/L 12/07/2017 5.1 3.7HEMA* 43.5 % 12/07/2017 51.0 39.0No progress notes entered within the past 30 days Normal [facility] Basic Metabolic Panlon 07-02 Anion gap 11 mmol/L Normal 10-20 [facility] Comment on above: Performed By: #### C MP, IRON, CBCDIF ####[address] [phone]#### FERR, HBA1C ####[facility] [address] [phone] Calcium 8.0 mg/dL Low 8.5-10.5 [facility] Comment on above: Performed By: #### C MP, IRON, CBCDIF ####[address] [phone]#### FERR, HBA1C ####[facility] [address] [place], [place] [phone] Chloride 105 mmol/L Normal 98-110 [facility] Comment on above: Performed By: #### C MP, IRON, CBCDIF ####[place] [phone]#### FERR, HBA1C ####[place] [phone] CO2 23 mmol/L Normal 23-32 [facility] Comment on above: Performed By: #### C MP, IRON, CBCDIF ####[place] [phone]#### FERR, HBA1C ####[place] [phone] Creatinine 1.00 mg/dL Normal 0.70-1.40 [facility] [facility] Comment on above: Performed By: #### C MP, IRON, CBCDIF ####[place] [phone]#### FERR, HBA1C ####[place] [phone] eGFR (non-black) mL/min/{1.73_m2} Normal >60 [facility] Comment on above: Performed By: #### C MP, IRON, CBCDIF ####[address] #### FERR, HBA1C ####[place] [phone] Glucose mass conc 112 mg/dL High 65-100 [facility] Comment on above: Performed By: #### C MP, IRON, CBCDIF ####[address] #### FERR, HBA1C ####[place] [phone] Potassium molar conc 3.7 mmol/L Normal 3.5-5.[address] [facility] Comment on above: Performed By: #### C MP, IRON, CBCDIF ####[address] [phone]#### FERR, HBA1C ####[facility] [address] [place], [place] [phone] Sodium 139 mmol/L Normal 135-146 [facility] Comment on above: Performed By: #### C MP, IRON, CBCDIF ####[address] [phone]#### FERR, HBA1C ####[facility] Nonou[address]xfwcw[address] [place], [place] [phone] Urea nitrogen 17 mg/dL Normal 10-25 [facility] Comment on above: Performed By: #### C MP, IRON, CBCDIF ####[address] [phone]#### FERR, HBA1C ####[facility] [place] [address] [phone] CASE MANAGEMon 07-02-2017 CASE MANAGEM HNO ID: [id number] thor: Kerri Jerry) HouseService: Care ManagementAuthor Type: Social WorkerType: Care Mgt Progress NoteFiled: 07/03/2017 9:32 AMNote Text:CARE MANAGEMENT DISCHARGE NOTESERVICE DATE: 07/03/2017SERVICE TIME: LOS: 1 dayAdmission Date: 07/01/2017DISCHARGE ARRANGEMENT (list agency and phone number)Home and Home careProvider: [facility] care HANDOFF COMMUNICATION:summary of care sent to [facility] via [employer]. Informed [facility] pt d/c yesterday.TRANSPORTATION ARRANGEMENTS:Car via familyADDITIONAL CONTACT RESOURCES:Discharge Information Admission (Discharged) from 07/01/2017 in [facility] 5D Medical Follow-Up Appointment Specialty Ortho Karely Provider Name Swati Fiore MD Address [address] [facility], [place] [phone] Appointment Date 07/21/17 Appointment Time 9:00AM Additonal Instructions Patient should bring the following to appointment:Picture ID, Insurance Card, Copay (if applicable), Medications/Med List,and Hospital Discharge paperwork. Please provide a minimum of 24 hournotice for cancellations/reschedulin g.Needs Prior to Discharge: Ready for DischargeSIGNATURE: LIZETT Sweeney PATIENT NAME: Alisia Correa Sr.DATE: July 03, 2017 : 9:30 AM PAGER/CONTACT #: Normal [facility] CBCon 07-02-2017 Erythrocyte distribution width Auto Ratio (RBC) 13.6 % Normal 11.5-15.0 [facility] Comment on above: Performed By: #### C MP, IRON, CBCDIF ####[place] [phone]#### FERR, HBA1C ####[address] AvJ[address] [place] [phone] Erythrocytes (RBC) 3.73 10*6/uL Low 4.20-6.[address] [facility] Comment on above: Performed By: #### C MP, IRON, CBCDIF ####[place] [phone]#### FERR, HBA1C ####[place] [phone] Hematocrit (HCT) 34.4 % Low 39.0-51.0 [facility] Comment on above: Performed By: #### C MP, IRON, CBCDIF ####[place] [phone]#### FERR, HBA1C ####[place] [address] [place] [place] [phone] Hemoglobin mass conc (Bld) 10.9 g/dL Low 13.0-17.0 [facility] Comment on above: Performed By: #### C MP, IRON, CBCDIF ####[place] [phone]#### FERR, HBA1C ####[place] [address] [address] MCH 29.2 pG Normal 26.0-34.0 [facility] Comment on above: Performed By: #### C MP, IRON, CBCDIF ####[address] #### FERR, HBA1C ####[place] [address] [place] [place] [phone] MCHC mass conc (RBC) 31.7 g/dL Normal 30.5-36.[address] [facility] Comment on above: Performed By: #### C MP, IRON, CBCDIF ####[place] [phone]#### FERR, HBA1C ####[address] AvRuss[address] [place] [phone] MCV 92.2 fL Normal 80.0-100.0 [facility] Comment on above: Performed By: #### C MP, IRON, CBCDIF ####[place] [phone]#### FERR, HBA1C ####[address] AvJennifer [place] [phone] Platelet mean volume (PMV) 12.5 fL Normal 9.0-12.7 [facility] Comment on above: Performed By: #### C MP, IRON, CBCDIF ####[address] #### FERR, HBA1C ####[place] [address] [phone] Platelets 146 10*3/uL Low 150-400 [facility] Comment on above: Performed By: #### C MP, IRON, CBCDIF ####[address] #### FERR, HBA1C ####[place] [address] [phone] WBC (Leukocytes) 6.04 10*3/uL Normal 3.70-11.00 [facility] Comment on above: Performed By: #### C MP, IRON, CBCDIF ####[employer] [address] [phone]#### FERR, HBA1C ####[facility] [address] [place], [place] [phone] CONSULT PROGon 07-02-2017 CONSULT PROG HNO ID: [id number] thor: Sonny Pablo) NovakService: Pain ManagementAuthor Type: Physician AssistantType: Consult Progress NoteFiled: 07/02/2017 9:39 AMNote Text:INPATIENT ACUTE PAIN MGMT PROGRESS NOTESPatient Name: Alisia Correa SrAlejandroMRN: [id number] DATE: July 02, 2017SERVICE TIME: 9:32 AMPRIMARY SERVICE: Ortho and SpineConsult by Dr. Knox for acute post op painINTERVAL HPI: Is the patient having any pain? Yes LOCATION: R kneePAIN SCALE: 5 on a scale of 0-10PAIN CHARACTER: achingFREQUENCY: (How often does the pain occur?) occurs [id number] WM cc R knee painPERTINENT ROS:denies fever, [...] HISTORYProcedure Laterality Date- COLONOSCOP W/ OR W/O [facility] SPEC Colonoscopy- EGD W/O OR W/BRUSH/WASH 2016 [...] SCM 08/06/2010 Performed by GEORGINA SEAMAN at [facility]- TOTAL KNEE REPLACEMENT Left 2012 with [...] 07/02/2017 6.04RBC (m/uL)Date 07/02/2017 3.73 (L)Hemoglobin (g/dL)Date Value07/02/2017 10.9 (L)Hematocrit (%)Date Value07/02/2017 34.4 (L)MCV (fL)Date 07/02/2017 92.2MCH (pG)Date Value07/02/2017 29.2MCHC (g/dL)Date Value07/02/2017 31.7RDW-CV (%)Date Value07/02/2017 13.6Platelet Count (k/uL)Date Value07/02/2017 146 (L)MPV (fL)Date Value07/02/2017 12.5ASSESSMENT AND PLAN:56 year old WM s/p TKA R bwr9Ctzougo of tramadol 200mg/day and neurontin 600mg ii tab po tidImpressionStatus post right knee replacementAcute right knee painPlanContinue tylenol, cymbalta, topamax,Continue zanaflex prn, and oxyir prncontinue neurontin to 1200mg tid, home medicationcontinue iv toradol 30mg q 6hrsIf lack of pain control, recommend MScontin 15mg tidDiscuss with Dr. GrewalATURE: SHRAVAN Lynn-CDATE: July 02, 2017TIME: 9:32 AM Normal [facility] Glucose POCT ([place], [place], [place] A Use Only)on 07-02-2017 Glucose mass conc 97 mg/dL Normal 65-100 [facility] Comment on above: Performed By: #### C MP, IRON, CBCDIF ####[address] [phone]#### FERR, HBA1C ####[facility] Ylfrpicflmpy[address]50 [phone] Glucose mass conc 125 mg/dL High 65-100 [facility] Comment on above: Performed By: #### C MP, IRON, CBCDIF ####[address] [phone]#### FERR, HBA1C ####[facility] [address] [place] [phone] NURSING PROGon 07-02-2017 NURSING PROG HNO ID: [id number] thor: Geneva (Solo) Paul, RNService: (none)Author Type: Advance Clinical NurseType: Nursing Progress NoteFiled: 07/02/2017 1:37 PMNote Text: Nursing Progress NotePatient Name: Alisia Correa Sr. Location: [facility]/[id number]_ Daily Note:Patient attended discharge instruction class for total joints , wheredischarge instructions were reviewed.Education/Teachi ng points reviewed:Wound care for Silverlon/Mepilex AG - any drainage upon removal notifysurgeonShoweringNut ritionUse of ice, no heatNo pillow under the kneeWearing protocol for jacqueline hose/tonai wrapsSwelling (abnormal vs. Normal)Exercises (flexion vs extension),Level [...] note was completed by: Geneva Miller RN [facility] NURSING PROG HNO ID: [id number] thor: Sobeida Hinkle (Rn) JAMIE Franceservice: (none)Author Type: Registered NurseType: Nursing Progress NoteFiled: 07/02/2017 3:02 PMNote Text: Nursing Progress NotePatient Name: Alisia Correa Sr. Location: [place] [address]/[id number]-02_ Daily Note:1204: Patient is medically cleared to go home per Dr. Hernandez.1501: Patient is cleared from PT and OT to go home.This note was completed by: Sobeida Frances RN [facility] NURSING PROG HNO ID: [id number] thor: Crystal (Rn) Doug, JAMIEervice: (none)Author Type: Registered NurseType: Nursing Progress [...] Rounds:Patient: Alisia Correa Sr.Care Management: Nate Herron Platform Material Handler Manager: Anna Camacho RNOrtho Hypnotherapist: K. Paul, RNPharmacist: Nicky Sanches Discussed on Rounds:Plan of [...] Concerns;Explain Scheduling and Routine of Care, Test andProcedures;[place] Patient/Family to Hospital/Unit EnvironmentKnowledge Deficit Goals/Outcomes: Participate [...] July 02, 2017 : 8:49 AM CSN: [id number] Nursing Progress NotePatient Name: Alisia Correa Sr. Location: [address]/[place] [address]_ Daily Note: Dr. Rivera placed on consult [...] note was completed by: Crystal Camacho RN [facility] PROGRESSon 07-02-2017 PROGRESS HNO ID: [id number] thor: Ines Sextonervice: General Internal MedicineAuthor Type: [...] hrs: BP Temp Temp src Pulse Resp GyQ72307/02/17 1455 129/79 37.3 ?C (99.1 ?F) Oral [...] 2+ carotidDATA:CBC, Coags, BMP, Mg, PhosRecent Labs 475967NBC 6.04HB 10.9*HCT 34.4*PLT 146*NA 139K 3.7CHLOR 105CO2 [...] Hernandez, MDDATE: July 02, 2017TIME: 6:45 PM [facility] PROGRESS HNO ID: [id number] thor: DANIEL Macielervice: Orthopaedic SurgeryAuthor Type: ResidentType: Progress NotesFiled: 07/02/2017 8:40 AMNote Text:ORTHOPAEDIC POSTOP PROGRESS NOTESUBJECTIVEPatient states that they are comfortableWell Controlled knee(s) pain.Denies incisional pain.OBJECTIVEVITAL SIGNS: BP 112/63 Pulse 80 Temp 37.2 ?C (98.9 ?F) (TemporalArtery) Resp 18 Ht 180.3 cm (5' 11 ) Wt 113.4 kg (250 lb) SpO2 95% BMI 34.87 kg/d7JDMTDJ AND OUTPUT:Intake/Output Summary (Last 24 hours) at [...] Patient monitored, no new events overnight.LABS:Recent Labs 091733CJ 10.9*HCT 34.4*DATA:Diagnostic tests reviewed for today's visit:Most [...] 02, 2017 : 8:40 AM PAGER/CONTACT #: [phone] discuss medical issues with medical co-management physicianOrthopedic issue please page me first, [id number] 6pm and on weekends please contact [facility] [phone] [facility] THERAPY NTon 07-02-2017 THERAPY NT HNO ID: [id number] thor: Nellie (Pt) [place]ervice: Physical TherapyAuthor Type: Physical TherapistType: Therapy (PT/OT/Speech/Resp)Filed: 07/02/2017 3:04 PMNote Text:PHYSICAL THERAPY MISSED VISITSERVICE DATE: 07/02/2017SERVICE TIME: 1330 to 1335ROOM: [id number] Treatment. Patient not seen due to Declined. Preparing to go toOT for car transfer. Denied questions/concerns from PT standpoint. Clearedafter morning session for D/C home today.SIGNATURE: Nellie David PT PATIENT NAME: Alisia Correa Sr.DATE: July 02, 2017 : 3:01 PM PAGER/CONTACT #: [phone] [facility] THERAPY NT HNO ID: [id number] thor: Rbeecca (Ot) RAMSES Tarangoervice: Occupational TherapyAuthor Type: Occupational TherapistType: Therapy (PT/OT/Speech/Resp)Filed: 07/02/2017 2:43 PMNote Text:Occupational Therapy TreatmentSERVICE DATE: 07/02/2017SERVICE TIME: 1413 to 1437ROOM: [id number] Discharge Disposition: Home OTRecommended Discharge Disposition Comments: [...] Weakness (generalized);Difficultyw alking-musculoskeletalInt erventions Provided: Therapeutic Activity (14599)Therapeutic Activity (49418) Treatment Minutes: 242 unitsSkilled Intervention(s): Instruction in [...] 23 (07/02/171412)Self Care Current Status (G8987): CI (07/02/17 141)Self Care Goal Status (G8988): CH (07/02/171412)Based on [...] ATURE: INDU Licona/Kenny PATIENT NAME: Alisia Correa .DATE: July 02, 2017 : 2:40 PM PAGER: [phone] [facility] THERAPY NT HNO ID: [id number] thor: Watson JerryOt/Kenny) RAMSES Connellyervice: Occupational TherapyAuthoarin Type: Occupational TherapistType: Therapy (PT/OT/Speech/Resp)Filed: 07/02/2017 11:48 AMNote Text:Occupational Therapy EvaluationSERVICE DATE: 07/02/2017SERVICE TIME: 1036 to 1118ROOM: [id number] Discharge Disposition: Home OTRecommended Discharge Disposition Comments: [...] Weakness (generalized);Difficultyw alking-musculoskeletalInt erventions Provided: Evaluation;Therapeutic Activity (94345);Self CareHome Management (43445)$ Evaluation-Low (95904) Billed Units: 1 unitTherapeutic Activity (03914) Treatment Minutes: 101 unitSkilled Intervention(s): Instructed patient [...] transfers using wheeled walker between bedand chair.Self Half-Way Management (04670) Treatment Minutes: 171 unitSkilled Intervention(s): Instructed in [...] July 02, 2017 : 11:33 AM PAGER: [phone] [facility] THERAPY NT HNO ID: [id number] thor: Nellie (Pt) GuddyService: Physical TherapyAuthor Type: Physical TherapistType: Therapy (PT/OT/Speech/Resp)Filed: 07/02/2017 11:05 AMNote Text:Physical Therapy TreatmentSERVICE DATE: 07/02/2017SERVICE TIME: 917 to OOM: [id number] Discharge Disposition: Home PTAnticipated Discharge Needs: Physical [...] Diagnosis: Reduced mobility-otherInterventio ns Provided: Therapeutic Exercise (41122);Therapeutic Activity(19894);Gait Training (20041)Therapeutic Exercise (97245) Treatment Minutes: 201 unitSkilled Intervention(s): Instruction in therapeutic exercise seated andsupine TKR exercisesVerbal and tactile cuing provided .Education in HEp and TKR bookletTherapeutic Activity (39246) Treatment Minutes: 101 unitSkilled Intervention(s): Instructed patient in sit to supine using safe,effective techniqueEducation with POC, precautions, home management and set up, nonpharm paincontrol techniques, nonpharm pain control techniques, conservation ofenergy techniquesGait Training (45460) Treatment Minutes: 242 unitsSkilled Intervention(s): Instruction in [...] Assistance (with use of sheet as leg tone regulator after 2trials)Scooting Modified IndependentSit to Stand Stand [...] 02, 2017 : 10:58 AM PAGER/CONTACT #: [phone] [facility] ANES Brian 07-01-2017 ANES POST HNO ID: [id number] thor: Lora Knox IIService: AnesthesiologyAuthor Type: AnesthesiologistType: [...] 2017 : 11:34 AM PAGER/CONTACT #: [phone] [facility] ANES PREOPon 07-01-2017 ANES PREOP HNO ID: [id number] thor: Lora Knox IIService: AnesthesiologyAuthor Type: AnesthesiologistType: [...] results:Hematocrit 40.0 06/17/2017Potassium 4.4 06/17/2017ANES DOS/PREOP NOTE:Vitals: 198646BK: 115/74Pulse: 67Resp: 16Temp: (!) 35.9 ?C (96.6 [...] HISTORYProcedure Laterality Date- COLONOSCOP W/ OR W/O [facility] SPEC Colonoscopy- EGD W/O OR W/BRUSH/WASH 2016 [...] contains updated information obtained within 48 hours ofSurgery/Procedure.SIGNA TURE: Lora Knox II, DO PATIENT NAME: Alisia Correa Sr.DATE: July 01, 2017 : 7:11 AM CSN: [id number] [facility] BRIEF OP NOTon 07-01-2017 BRIEF OP NOT HNO ID: [id number] thor: Tyron Lebronice: Orthopaedic SurgeryAuthor Type: PhysicianType: Brief Op NoteFiled: 07/01/2017 9:44 AMNote Text:TOTAL KNEE ARTHROPLASTYBRIEF OPERATIVE / PROCEDURE NOTELOG ID: [id number]/Procedure Date: 07/01/2017Incision/Procedu re Start Time: 8:12 AMIncision Close/Procedure End Time:Surgeon(s)/Procedura list(s) and Maintenance And Operations Supervisor(s):Surgeon(s) and Role: * Swati Fiore - Primary * Tyron Rose - FellowSurgical Maintenance And Operations Supervisor: Kd Pablo) FineganProcedure(s):Anastasiya campos(s) (LRB):ARTHROPLASTY REPLACE JOINT TOTAL KNEE (Right)Anesthesia: GeneralPeripheral Block Type: None pre-opApproach: Median parapatellarFindings: see operative reportEstimated Blood Loss: 150 mlsSpecimens: NoneComplications: NoneImplant:Implant Name Type Inv. Item Serial No. Admitting Office Escort Lot No. LRB No. UsedPIN TRIATHLON 3IN FIXATION HEADLESS FLUTED KNEE - [id number] Pin PINTRIATHLON 3IN FIXATION HEADLESS FLUTED KNEE STRY/[employer] [id number] TRIATHLON 7 PA FEMORAL CRUCIATE RETAIN BEAD KNEE RIGHT -[id number] Joint - Knee COMPONENT TRIATHLON 7 PA FEMORAL CRUCIATE RETAINBEAD KNEE RIGHT STRY/[employer] [id number] Right 1INSERT TRIATHLON 6 X3 13MM TIBIAL CONDYLAR STABILIZED KNEE - [id number] - Knee INSERT TRIATHLON 6 X3 13MM TIBIAL CONDYLAR STABILIZED KNEESTRY/[employer] [id number] Right 1BASEPLATE TRIATHLON 6 TRITANIUM 68V78PP TIBIAL 4 CRUCIFORM PEG KEEL KNEE -[id number] Joint - Knee BASEPLATE TRIATHLON 6 TRITANIUM [id number] TIBIAL 4CRUCIFORM PEG KEEL KNEE STRY/[employer] [id number] Right 1COMPONENT TRITANIUM 35MM METAL 10MM PATELLAR ASYMMETRIC KNEE - [id number] - Knee COMPONENT TRITANIUM 35MM METAL 10MM PATELLAR ASYMMETRIC KNEE STRY/[employer] D4Y3 Right 1Bearing Surface: FixedFixation: CementlessSSI Risk Factors: DMConstraint: Cruciate RetainingOther: NonePre-Op/Pre-Procedure Diagnosis: Primary osteoarthritis of right knee[M17.11]Post-Op/Post- Procedure Diagnosis: Primary osteoarthritis of right knee[M17.11]Weight Bearing Status: Weight Bearing As ToleratedSIGNATURE: Tyron Rose MD PATIENT NAME: Alisia Correa Sr.DATE: July 01, 2017 : 9:43 AM PAGER/CONTACT #: [phone] [facility] CASE MGT INIT [facility] 2016 CASE MGT INIT [facility] HNO ID: [id number] thor: Kerri () HouseService: Care ManagementAuthor Type: Social WorkerType: Care Mgt Initial AssessmentFiled: 07/01/2017 1:46 PMNote Text:CARE MANAGEMENT: ASSESSMENT AND DISCHARGE PLANSERVICE DATE: 07/01/2017SERVICE TIME: 12:00pmPRIMARY CARE PHYSICIAN:Ellen Crabtree, DOPhone: [id number] STATUS: InpatientPOTENTIAL DISCHARGE PLANSHomNorfolk State Hospital CareMclean Hospitale OT/PTPatient/Representati ve Stated Goals: return home.Needs Prior to Discharge: To Be Determined;Discharge Prescriptions;OT/PTEvalua tion;Discharge Transportation;Pharmacy Bedside DeliveryHealth Insurance: Medical [place] ServicesLiving Arrangement: HomeLives With: SpouseFinancial Resources: RetiredPrimary Contact:Extended Emergency Contact InformationPrimary Emergency Contact: Armen Correaddress: [address] [place] [address]Fyls Fmdgvlks: SpouseSupportive: Yes- at bedsideOther Important Patient Contacts: [...] Have Advance Directives? Yes: Durable Power of Senior Environmental Practice Leader forHealth Care: Dipti Correa , copy is [...] days? NoHas the Patient Been in a Shelter Facility in the Past 30 days? NoFREEDOM OF CHOICE EXPLAINED:Dave CorreaFinancial Disclosure ProvidedThe patient and/or family has been given the Provider List: YesProvider List: Home CarePreference: [facility] Recently had their [facility] care service in April.HANDOFF COMMUNICATION:referral sent to [facility]. anticipate d/c home tomorrow.SIGNATURE: LIZETT Sweeney PATIENT NAME: Alisia Correa Sr.DATE: July 01, 2017 : 1:41 PM PAGER/CONTACT #: [facility] CONSULTon 07-01-2017 CONSULT HNO ID: [id number] thor: Ines WilsonimaniService: General Internal MedicineAuthor Type: PhysicianType: ConsultsFiled: 07/01/2017 [...] Pain 5/10PAST MEDICAL HISTORY:PAST MEDICAL HISTORYDiagnosis Date- Duribn's esophagus- Closed fracture of rib(s), unspecified Rib fracture- Esophageal reflux BARRETS ESOPHAGUS- Hypertrophy of prostate with urinary obstruction and other lower urinarytract symptoms (LUTS) Hypertrophy of the prostate with obstruction- Impotence, organic- Unspecified asthma(493.90)- Unspecified sleep apnea Last us 2003, pt was 380 lbs at that time- Urinary calculus, unspecified Renal stonesPAST SURGICAL HISTORY:PAST SURGICAL HISTORYProcedure Laterality Date- COLONOSCOP W/ OR W/O [facility] SPEC Colonoscopy- EGD W/O OR W/BRUSH/WASH 2016 [...] 18, height 180.3 cm (5' 11 ), ymfvsx825.4 kg (250 lb), SpO2 98 %.General appearance: [...] Hernandez, MDDATE: July 01, 2017TIME: 9:01 PM [facility] CONSULT HNO ID: [id number] thor: Sonny Pablo) NovakService: Pain ManagementAuthor Type: [...] (How often does the pain occur?) occurs vhjxhlxpanbwdm33rz WM cc R knee painPERTINENT ROS:denies fever, [...] HISTORYProcedure Laterality Date- COLONOSCOP W/ OR W/O [facility] SPEC Colonoscopy- EGD W/O OR W/BRUSH/WASH 2016 EGD- MAL LESION FACE,EAR,EYEL 0.6-1CM 06/27/10 Performed by GEORGINA SEAMAN at [facility]- OTHER ACCESSORY 2003 GASTRIC BYPASS- OTHER ACCESSORY REPAIR OF RT [...] 104 CO2 (mmol/L)Date 06/17/2017 25 Creatinine (mg/dL)Date Value06/17/2017 1.07 BUN (mg/dL)Date 06/17/2017 18 Anion Gap (mmol/L)Date Value06/17/2017 11 Calcium (mg/dL)Date 06/17/2017 9.2 WBC (k/uL)Date Value06/17/2017 3.86RBC (m/uL)Date Value06/17/2017 [...] YUVAL LynnCDATE: July 01, 2017TIME: 2:35 PM [facility] Glucose POCT ([facility], [place], [place] A Use Only)on 07-01-2017 Glucose mass conc 117 mg/dL High [address] [place] [address] Comment on above: Performed By: #### C MP, IRON, CBCDIF ####[address] #### FERR, HBA1C ####[place] [address] Glucose mass conc 115 mg/dL High [address] [place] [address] Comment on above: Performed By: #### C MP, IRON, CBCDIF ####[place] [address] [address] #### FERR, HBA1C ####[place] [address] Glucose mass conc 128 mg/dL High [address] [place] [address] Comment on above: Performed By: #### C MP, IRON, CBCDIF ####[address] #### FERR, HBA1C ####[facility] [address] [place], [place] [phone] Glucose mass conc 103 mg/dL High 65-100 [facility] Comment on above: Performed By: #### C MP, IRON, CBCDIF ####[facility] [phone]#### FERR, HBA1C ####[facility] Rpr[address]uukaj[address] [place], [place] [phone] NURSING PROGon 07-01-2017 NURSING PROG HNO ID: [id number] thor: Chato Osborn (Rn) JAMIE Meekservice: NursingAuthor Type: Registered NurseType: Nursing Progress NoteFiled: 07/01/2017 12:08 PMNote Text: Nursing Progress NotePatient Name: Alisia Correa Sr. Location: [address]/[place] [address]_ Daily Note:PT admitted from PACU in bed [...] note was completed by: Chato Meeks RN [facility] NURSING PROG HNO ID: [id number] thor: Bambi JerryRn) JAMIE Moellerervice: (none)Author Type: Registered NurseType: Nursing Progress NoteFiled: 07/01/2017 9:56 AMNote Text:Discharge Status:Patient is Awakening, and is no airway issues. Skin condition was WNL andwarm.Transported to recovery room via bed with siderails up. Accompanied byanesthetist and BILL/. [facility] NURSING PROG HNO ID: [id number] thor: Kaylee (Rn) Aimee, RNService: (none)Author Type: Registered NurseType: Nursing Progress NoteFiled: 07/01/2017 11:13 AMNote Text: Nursing Progress NotePatient Name: Alisia Correa Sr. Location: [place] [address]/JB-JUVW-69 Daily Note:pt to pacu; sleepy. drsg to [...] note was completed by: Kaylee Yu RN [facility] NURSING PROG HNO ID: [id number] thor: Bambi JerryRn) Sunni RNService: (none)Author Type: Registered NurseType: Nursing Progress NoteFiled: 07/01/2017 8:21 AMNote Text:Patient transported to the OR via cart, accompanied by Sabrina Shi.Level of consciousness: Alert and Oriented x 3Emotional Status:CalmSensory Impairments: NoLanguage Barrier: NoMobility Impairments: NoAddressed any patient concerns regarding consents, OR environment, andanesthetics.Body temperature maintained by maintaining OR room temperature -98 degrees F, providing patient with warm bath blankets, limiting areasof exposure and providing warm irrigation fluid. [facility] NURSING PROG HNO ID: [id number] thor: Neetu (Rn) Debbie Munsonice: (none)Author Type: Registered NurseType: Nursing Progress NoteFiled: 07/01/2017 7:27 AMNote Text: Nursing Progress NotePatient Name: Alisia Correa Sr. Location: [place] [address]/[id number] Daily Note:AANDO.Lungs clear. Rt leg pink, warm, brisk refill. Strongdorsiflexion, pos sensation. Rt DP and PT pulses palp. Pain all over fromarthritis 04/27. Numbness/tingling to both feet.This note was completed by: Neetu Munson RN [facility] OPERATIVE NOon 07-01-2017 OPERATIVE NO HNO ID: [id number] thor: Swati Hansonervice: Orthopaedic SurgeryAuthor Type: PhysicianType: Operative ReportFiled: 07/01/2017 12:16 PMNote Text:OPERATIVE NOTEPATIENT NAME: Alisia Correa Sr. ID: [id number] Date: 07/01/2017Surgeon(s) and Maintenance And Operations Supervisor(s):Surgeon(s) and Role: * Swati Fiore - Primary [...] ccImplants:Implant Name Type Inv. Item Serial No. Admitting Office Escort Lot No. [id number]. UsedPIN TRIATHLON 3IN FIXATION HEADLESS FLUTED KNEE - [id number] Pin PINTRIATHLON 3IN FIXATION HEADLESS FLUTED KNEE STRY/[employer] [id number] TRIATHLON 7 PA FEMORAL CRUCIATE RETAIN BEAD KNEE RIGHT -[id number] Joint - Knee COMPONENT TRIATHLON 7 PA FEMORAL CRUCIATE RETAINBEAD KNEE RIGHT STRY/[employer] [id number] Right 1INSERT TRIATHLON 6 X3 13MM TIBIAL CONDYLAR STABILIZED KNEE - [id number] - Knee INSERT TRIATHLON 6 X3 13MM TIBIAL CONDYLAR STABILIZED KNEESTRY/[employer] [id number] Right 1BASEPLATE TRIATHLON 6 TRITANIUM [id number] TIBIAL 4 CRUCIFORM PEG KEEL KNEE -[id number] Joint - Knee BASEPLATE TRIATHLON 6 TRITANIUM [id number] TIBIAL 4CRUCIFORM PEG KEEL KNEE STRY/[employer] [id number] Right 1COMPONENT TRITANIUM 35MM METAL 10MM PATELLAR ASYMMETRIC KNEE - [id number] - Knee COMPONENT TRITANIUM 35MM METAL 10MM [...] verified this against the epicondylar axis and Tye'sline.The femur was sized and drill holes were [...] resected leaving a healthy remnant with greater [id number] thickness. The patella was sized with the [...] Fiore, MDDATE: July 01, 2017TIME: 12:16 PM [facility] PT EDon 07-01-2017 PT ED HNO ID: [id number] thor: Chely (Rn) Jeremy, RNService: (none)Author Type: Registered NurseType: Patient EducationFiled: 07/01/2017 7:12 AMNote Text:PATIENT EDUCATION TOPIC: PROCEDURE / SURGERY: Pre-op Teaching: Post opcarePATIENT NAME: Alisia Correa Sr. LOCATION: [address] NESS TO LEARNCOGNITIVE ABILITY: Alert and orientedMOTIVATION [...] (RECOMMENDATION): NoneElectronically Signed By: Chely Luna RN [facility] PT ED HNO ID: [id number] thor: María (Rn) JAMIE Grubbservice: NursingAuthor Type: Registered NurseType: Patient EducationFiled: 07/01/2017 6:15 AMNote Text:PATIENT EDUCATION TOPIC: PROCEDURE / SURGERY: Pre-op Teaching:Logistics ProtocolsComplication PreventionSurgical Safety PrinciplesPATIENT NAME: Alisia Correa Sr. LOCATION: [place] [id number] NESS TO LEARNCOGNITIVE ABILITY: Alert and orientedMOTIVATION [...] (RECOMMENDATION): NoneElectronically Signed By: María Grubbs RN [facility] THERAPY NTon 07-01-2017 THERAPY NT HNO ID: [id number] thor: Nellie (Pt) JesúsyService: Physical TherapyAuthor Type: Physical TherapistType: Therapy (PT/OT/Speech/Resp)Filed: 07/01/2017 4:47 PMNote Text:Physical Therapy EvaluationSERVICE DATE: 07/01/2017SERVICE TIME: 1545 to 1630ROOM: [id number] Discharge Disposition: Home PTAnticipated Discharge Needs: Physical [...] Diagnosis: Reduced mobility-otherInterventio ns Provided: Evaluation;Gait Training (34782);TherapeuticActivi ty (23132)$ Evaluation-Low (14727) Billed Units: 1 unitTherapeutic Activity (05306) Treatment Minutes: 121 unitSkilled Intervention(s): Instructed patient in supine to sit pushing withupper extremities to sit upEducation with POC, precautions, TKR booklet, nonpharm pain controltechniques, toileting, assisted to jose underwear, home management and setupGait Training (79797) Treatment Minutes: 131 unitSkilled Intervention(s): Instruction in [...] went well after my knee revision (left) april Home EnvironmentPatient Lives With: Significant OtherAssistance Available: [...] 01, 2017 : 4:41 PM PAGER/CONTACT #: [phone] [facility] NURSING PROGon 06-19-2017 NURSING PROG HNO ID: [id number] thor: Renae oCx (Rn) Burak, RNService: (none)Author Type: Registered NurseType: Nursing Progress NoteFiled: 06/19/2017 10:02 AMNote Text:PACC visit 06/17/17. H/O SDM,BMI35,YOLA,COPD/asthma . 06/17/17 nasalcANDs(-),ts,ferritin a1c, cbc/d,bmp,iron studies. 04/15/17 ekg. 05/20/17 kneexr. Chart check complete. Penelope HAMILTON [facility] CBC and Differentialon 06-17 Abs Baso 0.03 k/uL Normal 0.00-0.10 [facility] Comment on above: Performed By: #### C MP, IRON, CBCDIF ####[facility] [phone]#### FERR, HBA1C ####[place] [address] [phone] Abs Brooke 0.35 k/uL Normal 0.00-0.86 [facility] Comment on above: Performed By: #### C MP, IRON, CBCDIF ####[place] [phone]#### FERR, HBA1C ####[place] [address] [phone] Abs Neut 2.15 k/uL Normal 1.45-7.50 [facility] Comment on above: Performed By: #### C MP, IRON, CBCDIF ####[place] [id number]#### FERR, HBA1C ####[place] [address] [address] [phone] Basophils/100 WBC Auto (Bld) 0.8 % [facility] Comment on above: Performed By: #### C MP, IRON, CBCDIF ####[place] [phone]#### FERR, HBA1C ####[place] [address] [address] [place] [phone] Eosinophils 0.19 10*3/uL Normal 0.00-0.45 [facility] Comment on above: Performed By: #### C MP, IRON, CBCDIF ####[place] [phone]#### FERR, HBA1C ####[place] [address] [address] [place] [phone] Eosinophils/100 leukocytes 4.9 % [facility] Comment on above: Performed By: #### C MP, IRON, CBCDIF ####[place] [phone]#### FERR, HBA1C ####[place] [address] [address] [place] [address] Erythrocyte distribution width Auto Ratio (RBC) 14.3 % Normal 11.5-15.0 [facility] Comment on above: Performed By: #### C MP, IRON, CBCDIF ####[place] [phone]#### FERR, HBA1C ####[place] [address] Erythrocytes (RBC) 0.0 /100 WBC Normal [address] [facility] Comment on above: Performed By: #### C MP, IRON, CBCDIF ####[place] [phone]#### FERR, HBA1C ####[place] [address] Erythrocytes (RBC) 4.35 10*6/uL Normal 4.20-6.[address] [facility] Comment on above: Performed By: #### C MP, IRON, CBCDIF ####[place] [phone]#### FERR, HBA1C ####[place] [address] Hematocrit (HCT) 40.0 % Normal 39.0-51.0 [facility] Comment on above: Performed By: #### C MP, IRON, CBCDIF ####[place] [phone]#### FERR, HBA1C ####[place] [address] [address] [place] [address] Hemoglobin mass conc (Bld) 12.8 g/dL Low 13.0-17.0 [facility] Comment on above: Performed By: #### C MP, IRON, CBCDIF ####[place] [phone]#### FERR, HBA1C ####[facility] [phone] Lymphocytes 1.14 10*3/uL Normal 1.00-4.00 [facility] Comment on above: Performed By: #### C MP, IRON, CBCDIF ####[place] [phone]#### FERR, HBA1C ####[phone] Lymphocytes/100 leukocytes 29.5 % Normal [facility] Comment on above: Performed By: #### C MP, IRON, CBCDIF ####[place] [phone]#### FERR, HBA1C ####[place] [phone] MCH 29.4 pG Normal 26.0-34.0 [facility] Comment on above: Performed By: #### C MP, IRON, CBCDIF ####[place] [id number]#### FERR, HBA1C ####[place] [phone] MCHC mass conc (RBC) 32.0 g/dL Normal 30.5-36.[address] [facility] Comment on above: Performed By: #### C MP, IRON, CBCDIF ####[address] #### FERR, HBA1C ####[place] [phone] MCV 92.0 fL Normal 80.0-100.0 [facility] Comment on above: Performed By: #### C MP, IRON, CBCDIF ####[place] [phone]#### FERR, HBA1C ####[place] [phone] Monocytes/100 leukocytes 9.1 % Normal [facility] Comment on above: Performed By: #### C MP, IRON, CBCDIF ####[place] [phone]#### FERR, HBA1C ####[place] [address] [address] [place] [phone] Neutrophils/100 WBC Auto (Bld) 55.7 % Normal [facility] Comment on above: Performed By: #### C MP, IRON, CBCDIF ####[place] [phone]#### FERR, HBA1C ####[place] [phone] Platelet mean volume (PMV) 12.3 fL Normal 9.0-12.7 [facility] Comment on above: Performed By: #### C MP, IRON, CBCDIF ####[place] [phone]#### FERR, HBA1C ####[place] [phone] Platelets 176 10*3/uL Normal 150-400 [facility] Comment on above: Performed By: #### C MP, IRON, CBCDIF ####[address] #### FERR, HBA1C ####[place] [phone] WBC (Leukocytes) 3.86 10*3/uL Normal 3.70-11.00 [facility] Comment on above: Performed By: #### C MP, IRON, CBCDIF ####[place] [phone]#### FERR, HBA1C ####[address]Russ[address] [place] [phone] Comp Metabolic Panelon 06-17 Alanine aminotransferase (ALT) 14 U/L Normal 5-50 [facility] Comment on above: Performed By: #### C MP, IRON, CBCDIF ####[place] [phone]#### FERR, HBA1C ####[place] [phone] Albumin 4.1 g/dL Normal 3.5-5.0 [facility] Comment on above: Performed By: #### C MP, IRON, CBCDIF ####[place] [phone]#### FERR, HBA1C ####[place] [address] Alkaline phosphatase (ALP) 95 U/L Normal 40-150 [facility] Comment on above: Performed By: #### C MP, IRON, CBCDIF ####[place] [phone]#### FERR, HBA1C ####[place] [address] Anion gap 11 mmol/L Normal 10-20 [facility] Comment on above: Performed By: #### C MP, IRON, CBCDIF ####[place] [phone]#### FERR, HBA1C ####[address] [place]acey [place] [address] Aspartate aminotransferase (AST) 18 U/L Normal 7-40 [facility] Comment on above: Performed By: #### C MP, IRON, CBCDIF ####[address] #### FERR, HBA1C ####[address] AvJennifer [place] [phone] Bilirubin (total) 0.2 mg/dL Normal 0.0-1.5 [facility] Comment on above: Performed By: #### C MP, IRON, CBCDIF ####[address] #### FERR, HBA1C ####[place] [address] [address] [place] [phone] Calcium 9.2 mg/dL Normal 8.5-10.5 [facility] Comment on above: Performed By: #### C MP, IRON, CBCDIF ####[place] [phone]#### FERR, HBA1C ####[place] [address] Chloride 104 mmol/L Normal 98-110 [facility] Comment on above: Performed By: #### C MP, IRON, CBCDIF ####[place] [phone]#### FERR, HBA1C ####[place] [address] CO2 25 mmol/L Normal 23-32 [facility] Comment on above: Performed By: #### C MP, IRON, CBCDIF ####[address] #### FERR, HBA1C ####[place] [address] Creatinine 1.07 mg/dL Normal 0.70-1.40 [facility] Comment on above: Performed By: #### C MP, IRON, CBCDIF ####[address] #### FERR, HBA1C ####[place] [address] [place] [place] [address] eGFR (non-black) mL/min/{1.73_m2} Normal >60 [facility] Comment on above: Performed By: #### C MP, IRON, CBCDIF ####[place] [phone]#### FERR, HBA1C ####[place] [address] [address] [place] [phone] Glucose mass conc 83 mg/dL Normal 65-100 [facility] Comment on above: Performed By: #### C MP, IRON, CBCDIF ####[place] [phone]#### FERR, HBA1C ####[place] [phone] Potassium molar conc 4.4 mmol/L Normal 3.5-5.[address] [facility] Comment on above: Performed By: #### C MP, IRON, CBCDIF ####[place] [phone]#### FERR, HBA1C ####[place] [phone] Protein 7.1 g/dL Normal 6.0-8.4 [facility] Comment on above: Performed By: #### C MP, IRON, CBCDIF ####[place] [phone]#### FERR, HBA1C ####[place] [phone] Sodium 140 mmol/L Normal 135-146 [facility] Comment on above: Performed By: #### C MP, IRON, CBCDIF ####[place] [phone]#### FERR, HBA1C ####[place] [phone] Urea nitrogen 18 mg/dL Normal 10-25 [facility] Comment on above: Performed By: #### C MP, IRON, CBCDIF ####[place] [phone]#### FERR, HBA1C ####[place] [address] [address] [place] [phone] Ferritinon 06-17-2017 Ferritin 45.3 ng/mL Normal 30.3-565.7 [facility] Comment on above: Performed By: #### C MP, IRON, CBCDIF ####[place] [phone]#### FERR, HBA1C ####[place] [address] [address] [place] [phone] Hemoglobin A1con 06-17-2017 Glucose mass conc 105 mg/dL Normal [facility] Comment on above: Result Comment: eAG: (Estimated average glucose) is a calculated value from HgbA1c and is franchise sales representative of the average blood glucose level in the last 2-3 month period. Performed By: #### C MP, IRON, CBCDIF ####[place] [phone]#### FERR, HBA1C ####[place] [address] [address] [place] [phone] Hemoglobin A1c/Hemoglobin.total mass fraction (Bld) 5.3 % Normal 4.3-5.6 [facility] Comment on above: Performed By: #### C MP, IRON, CBCDIF ####[place] [phone]#### FERR, HBA1C ####[place] [address] [address] [place] [phone] Iron and TIBCon 06-17-2017 Iron 42 ug/dL Normal 35-150 [facility] Comment on above: Performed By: #### C MP, IRON, CBCDIF ####[place] [phone]#### FERR, HBA1C ####[place] [address] [address] [place] [phone] TIBC 335 ug/dL Normal 250-450 [facility] Comment on above: Performed By: #### C MP, IRON, CBCDIF ####[address] #### FERR, HBA1C ####[place] [phone] Transferrin Saturatn 13 % Low 20-[address] [facility] Comment on above: Performed By: #### C MP, IRON, CBCDIF ####[place] [phone]#### FERR, HBA1C ####[place] [phone] Staph aureus PCRon 7 MRSA PCR Negative [facility] Comment on above: Performed By: #### S APCR ####[place] [phone] [phone] S aureus Spec Source Nasal [facility] Comment on above: Performed By: #### S APCR ####[place] [phone] [phone] Staph aureus PCR Negative [facility] Comment on above: Performed By: #### S APCR ####[place] [phone] [phone] Type and SCR (30D)on 017 ABO/RH(D) Negative [facility] Comment on above: Performed By: #### T SCR30 ####[place] [phone] Antibody Screen Negative [facility] Comment on above: Performed By: #### T SCR30 ####[facility] [phone] HOSPon 05-20-2017 HOSP Patient:Eddi Correa Sr.MRN: Height:5' [...] ORAL per tablettamsulosin (FLOMAX) 0.4 mg ORAL Ll99Alhcliing Sulfate 1.25 mg/3 mL INHALATION nebulizer solutionALBUTEROL [...] 40.0 % 06/17/2017 51.0 39.0Progress Notes (PT COUNTS INCLUDE 234 BEDS AT THE [facility]):Nisa Jackman, PT 06/24/2017 10:58 AM SignedPatient was seen for TKR measurements today.See flowsheet data for results of measurement.Nisa Jackman, PT, DPTProgress Notes (PRE ANES SPIRITISM):Lily Porras CNP 06/17/2017 1:29 PM SignedHISTORY AND PHYSICAL EXAMINATIONSERVICE DATE: 06/17/2017SERVICE TIME: 9:03 [facility]: NANCY Wolf FOR VISIT:Alisia Correa [...] HISTORYProcedure Laterality Date- COLONOSCOP W/ OR W/O [facility] SPEC Colonoscopy- EGD W/O OR W/BRUSH/WASH 2015 [...] documented by Carla Edwards LPN on 04/15/2017 [id number].Pt reports ALL Medications are accurate 04/15/17CURRENT ALLERGIES:ALLERGIESAllerg en Reactions- Avelox [Moxifloxaci* Rash, Hives, Itching, Shortness of Breath- Celebrex [Celecoxib] Rash, Hives, GI Upset- Erythromycin Base Hives, Shortness of Breath- Klonopin [Clonazepa* Itching- Levaquin [Levofloxa* HivesREVIEW OF SYSTEMS:PAIN ASSESSMENT: PainPain Score: 5/10Pain Location: Knee-RightDescription: Dull;AchingDuration Amount of Time: 1Duration Units: YearsFrequency: ContinuousIntervention: ColdGeneral: No weight loss, malaise or fevers.Neuro: No history of TIA's, stroke, YARD MANAGER tumor, impaired sensorium, hemiplegia,paraplegia or quadraplegia. No neurological symptoms or problems., Postive forNo history of TIA's, stroke, YARD MANAGER tumor, impaired sensorium, hemiplegia,paraplegia or quadraplegia. No neurological symptoms or problems.Respiratory: Positive for Asthma, Mild COPD: daily inhalers + prn. Smoker. YOLA(doesn not use cpap)Cardiovascular: No history of HTN requiring medication, no history of angina,CHF, [place], cardiac surgery or stents. Denies rest pain, [...] 17, 2017 : 9:03 AM PAGER/CONTACT #: [phone] Ellis, CNP 06/17/2017 9:48 AM AddendumPATIENT PREOPERATIVE INSTRUCTIONSSwati Fiore MD has scheduled you for your procedure at this surgerycenter:[facility]: [phone] --[address] [place] [address].You will need to call the day prior [...] surgery.- NO jewelry, body piercings, makeup, nail ukrainian, hairpins or contacts are nirmal worn the day of surgery.- CHG wipes provided with instructions.- Glucerna, one can daily the five consecutive days prior to your surgery.If you develop symptoms such as a fever, cold, or flu, or have other changes toyour [facility] health within TWO DAYS of scheduled surgery or the morning of surgery,please contact the surgery center above.Personal Belongings:- Leave ALL valuables and money at home or with family members. Arrival Time for Surgery:- You MUST call [facility] [place] the afternoon before surgery after3:30 pm (or [...] with dates and timesprovided. Ny Chao LPN [facility] Vital Signs Date Time Vital Sign Value Performing Clinician Facility 07-17-2025 05:00-0400 Body temperature 97.9 [degF] Ellen Kuns DO Work Phone: [facility] 07-17-2025 05:00-0400 Diastolic blood pressure 67 mm[Hg] Ellen Kuns DO Work Phone: [facility] 07-17-2025 05:00-0400 Heart rate 62 /min Ellen Kuns DO Work Phone: [facility] 07-17-2025 05:00-0400 Respiratory rate 18 /min Ellen Kuns DO Work Phone: [facility] 07-17-2025 05:00-0400 SaO2% (BldA) [Mass fraction] 96 % Ellen Kuns DO Work Phone: [facility] 07-17-2025 05:00-0400 Systolic blood pressure 103 mm[Hg] Ellen Kuns DO Work Phone: [facility] 07-16-2025 05:54-0400 Body weight 102 kg Ellen Soundays DO Work Phone: [facility] 07-12-2025 11:06-0400 Body height 177.8 cm Ellen Kuns DO Work Phone: [facility] 03-16-2025 09:27-0400 Body height 177.8 cm Heidy Marin MD Work Phone: [facility] 03-16-2025 09:27-0400 Body mass index (BMI) [Ratio] 33.72 kg/m2 Heidy Marin MD Work Phone: [facility] 03-16-2025 09:27-0400 Body temperature 97.59 [degF] Heidy Marin MD Work Phone: [facility] 03-16-2025 09:27-0400 Body weight 106.59 kg Heidy Marin MD Work Phone: [facility] 03-16-2025 09:27-0400 Diastolic blood pressure 70 mm[Hg] Heidy Marin MD Work Phone: [facility] 03-16-2025 09:27-0400 Heart rate 73 /min Heidy Marin MD Work Phone: [facility] 03-16-2025 09:27-0400 SaO2% (BldA) [Mass fraction] 93 % Heidy Marin MD Work Phone: [facility] 03-16-2025 09:27-0400 Systolic blood pressure 106 mm[Hg] Heidy Marin MD Work Phone: [facility] 01-30-2025 14:04-0400 Body temperature 97.1 [degF] Ellen Kuns DO Work Phone: [facility] 01-30-2025 14:04-0400 Diastolic blood pressure 88 mm[Hg] Ellen Kuns DO Work Phone: [facility] 01-30-2025 14:04-0400 Heart rate 72 /min Ellen Kuns DO Work Phone: [facility] 01-30-2025 14:04-0400 Systolic blood pressure 132 mm[Hg] Ellen Kuns DO Work Phone: [facility] 12-29-2024 13:57-0400 Body height 177.8 cm Ellen Kuns DO Work Phone: [facility] 12-29-2024 13:57-0400 Body mass index (BMI) [Ratio] 33 kg/m2 Ellen Kuns DO Work Phone: [facility] 12-29-2024 13:57-0400 Body weight 104.32 kg Ellen Kuns DO Work Phone: [facility] 12-29-2024 13:57-0400 Diastolic blood pressure 80 mm[Hg] Ellen Kuns DO Work Phone: [facility] 12-29-2024 13:57-0400 Heart rate 72 /min Ellen Kuns DO Work Phone: [facility] 12-29-2024 13:57-0400 Respiratory rate 18 /min Ellen Kuns DO Work Phone: [facility] 12-29-2024 13:57-0400 SaO2% (BldA) [Mass fraction] 97 % Ellen Kuns DO Work Phone: [facility] 12-29-2024 13:57-0400 Systolic blood pressure 110 mm[Hg] Ellen Kuns DO Work Phone: [facility] 11-28-2024 16:16-0500 Diastolic blood pressure 94 mm[Hg] LYN RODRI [facility] 11-28-2024 16:16-0500 Heart rate 79 /min LYN RODRI [facility] 11-28-2024 16:16-0500 Mean blood pressure 115 mm[Hg] LYN RODRI [facility] 11-28-2024 16:16-0500 Respiratory rate 18 /min LYN MACE [facility] 11-28-2024 16:16-0500 Systolic blood pressure 156 mm[Hg] LYN MACE [facility] 09-27-2024 18:05-0500 Body temperature 98 [degF] Ellen Kuns DO Work Phone: [facility] 09-27-2024 18:03-0500 Diastolic blood pressure 80 mm[Hg] Ellen Kuns DO Work Phone: [facility] 09-27-2024 18:03-0500 Heart rate 59 /min Ellen Kuns DO Work Phone: [facility] 09-27-2024 18:03-0500 Respiratory rate 20 /min Ellen Kuns DO Work Phone: [facility] 09-27-2024 18:03-0500 SaO2% (BldA) [Mass fraction] 95 % Ellen Kuns DO Work Phone: [facility] 09-27-2024 18:03-0500 Systolic blood pressure 141 mm[Hg] Ellen Kuns DO Work Phone: [facility] 09-27-2024 17:31-0500 Inhaled oxygen flow rate 6 L/min Ellen Kuns DO Work Phone: [facility] 09-27-2024 15:56-0500 Body height 177.8 cm Ellen Kuns DO Work Phone: [facility] 09-27-2024 15:56-0500 Body weight 102.05 kg Ellen Kuns DO Work Phone: [facility] 09-27-2024 12:15-0500 Blood Pressure Location LYN MACE [facility] 09-27-2024 12:15-0500 Body temperature 98.78 [degF] LYN MACE [facility] 09-27-2024 12:15-0500 Diastolic blood pressure 71 mm[Hg] LYN RODRI [facility] 09-27-2024 12:15-0500 Heart rate 65 /min LYN ROD[facility] [facility] 09-27-2024 12:15-0500 Respiratory rate 20 /min LYN RODRI [facility] 09-27-2024 12:15-0500 Systolic blood pressure 101 mm[Hg] LYN RODRI [facility] 08-23-2024 11:30-0500 Body height 177.8 cm Samira Bowden MD Work Phone: [employer] [facility] 08-23-2024 11:30-0500 Body mass index (BMI) [Ratio] 33 kg/m2 Samira Bowden MD Work Phone: [facility] [employer] [facility] 08-23-2024 11:30-0500 Body weight 104.33 kg Samira Bowden MD Work Phone: [facility] [employer] [facility] Comment on above: patient reported 08-23-2024 11:30-0500 Diastolic blood pressure 72 mm[Hg] Samira Bowden MD Work Phone: [employer] 08-23-2024 11:30-0500 Heart rate 78 /min Samira Bowden MD [facility]: [facility] 08-23-2024 11:30-0500 Systolic blood pressure 116 mm[Hg] Samira Bowden MD Work Phone: [facility] [employer] [facility] 06-21-2024 14:11-0400 Body height 177.8 cm [facility] 06-21-2024 14:11-0400 Body mass index (BMI) [Ratio] 30.1 kg/m2 [facility] 06-21-2024 14:11-0400 Body weight 95.25 kg [facility] 06-21-2024 14:11-0400 Diastolic blood pressure 60 mm[Hg] [facility] 06-21-2024 14:11-0400 Heart rate 55 /min [facility] 06-21-2024 14:11-0400 Respiratory rate 16 /min [facility] 06-21-2024 14:11-0400 SaO2% (BldA) [Mass fraction] 98 % [facility] 06-21-2024 14:11-0400 Systolic blood pressure 100 mm[Hg] [facility] 04-26-2024 17:17-0400 Body weight 6 mg [facility] 03-17-2024 11:58-0400 Diastolic blood pressure 62 mm[Hg] Heidy Marin MD Work Phone: [facility] 03-17-2024 11:58-0400 Systolic blood pressure 100 mm[Hg] Heidy Marin MD Work Phone: [facility] 03-17-2024 11:57-0400 Body mass index (BMI) [Ratio] 30.13 kg/m2 Heidy Marin MD Work Phone: [facility] 03-17-2024 11:57-0400 Body weight 95.25 kg Heidy Marin MD Work Phone: [facility] 03-17-2024 11:57-0400 Heart rate 70 /min Heidy Marin MD Work Phone: [facility] 03-15-2024 11:18-0400 Blood Pressure Location Pippa Duncan [facility] 03-15-2024 11:18-0400 Body temperature 98.24 [degF] Pippa Duncan [facility] 03-15-2024 11:18-0400 Diastolic blood pressure 88 mm[Hg] Pippa Orzech [facility] 03-15-2024 11:18-0400 Heart rate 73 /min Pippa Orzech [facility] 03-15-2024 11:18-0400 Respiratory rate 16 /min Pippa Orzech [facility] 03-15-2024 11:18-0400 Systolic blood pressure 138 mm[Hg] Pippa Orzech [facility] 02-11-2024 10:18-0400 Diastolic blood pressure 80 mm[Hg] DO Ellen Kuns Work Phone: [facility] 02-11-2024 10:18-0400 Heart rate 60 /min DO Ellen Kuns Work Phone: [facility] 02-11-2024 10:18-0400 Respiratory rate 16 /min DO Ellen Kuns Work Phone: [facility] 02-11-2024 10:18-0400 SaO2% (BldA) [Mass fraction] 97 % DO Ellen Kuns Work Phone: [facility] 02-11-2024 10:18-0400 Systolic blood pressure 139 mm[Hg] DO Eleln Kuns Work Phone: [facility] 02-11-2024 08:29-0400 Body height 177.8 cm DO Ellen Kuns Work Phone: [facility] 02-11-2024 08:29-0400 Body weight 95.25 kg DO Ellen Kuns Work Phone: [facility] 02-10-2024 13:09-0400 Body height 180.34 cm [facility] 02-10-2024 13:09-0400 Body mass index (BMI) [Ratio] 29.2 kg/m2 [facility] 02-10-2024 13:09-0400 Body weight 95.25 kg [facility] 02-10-2024 13:09-0400 Diastolic blood pressure 60 mm[Hg] [facility] 02-10-2024 13:09-0400 Heart rate 67 /min [facility] 02-10-2024 13:09-0400 Respiratory rate 16 /min [facility] 02-10-2024 13:09-0400 SaO2% (BldA) [Mass fraction] 97 % [facility] 02-10-2024 13:09-0400 Systolic blood pressure 112 mm[Hg] [facility] 01-28-2024 11:06-0400 Body height 177.8 cm Heidy Marin MD Work Phone: [facility] 01-28-2024 11:06-0400 Body mass index (BMI) [Ratio] 30.13 kg/m2 Heidy Marin MD Work Phone: [facility] 01-28-2024 11:06-0400 Body weight 95.25 kg Heidy Marin MD Work Phone: [facility] 01-28-2024 11:06-0400 Diastolic blood pressure 69 mm[Hg] Heidy Marin MD Work Phone: [facility] 01-28-2024 11:06-0400 Systolic blood pressure 100 mm[Hg] Heidy Marin MD Work Phone: [facility] 01-22-2024 08:59-0400 Body height 180.34 cm [facility] 01-22-2024 08:59-0400 Body mass index (BMI) [Ratio] 27.8 kg/m2 [facility] 01-22-2024 08:59-0400 Body weight 90.71 kg [facility] 01-22-2024 08:59-0400 Diastolic blood pressure 62 mm[Hg] [facility] 01-22-2024 08:59-0400 Heart rate 62 /min [facility] 01-22-2024 08:59-0400 Systolic blood pressure 112 mm[Hg] [facility] 11-16-2023 13:17-0500 Diastolic blood pressure 82 mm[Hg] Reena LAWRENCEGED INSTRUCTOR Work Phone: [facility] [employer] [facility] 11-16-2023 13:17-0500 Heart rate 58 /min Reena SPEARS Work Phone: [facility] [employer] 11-16-2023 13:17-0500 Systolic blood pressure 144 mm[Hg] Reena Cervantes APRN-GED INSTRUCTOR Work Phone: [facility] 11-10-2023 14:30-0500 Body height 180.34 cm Ellen Kuns Other [facility] 11-10-2023 14:30-0500 Diastolic blood pressure 80 mm[Hg] Ellen Kuns Other [facility] 11-10-2023 14:30-0500 Respiratory rate 16 /min Ellen Kuns Other [employer] [facility] [employer] Other 11-10-2023 14:30-0500 SaO2% (BldA) [Mass fraction] 94 % Ellen Kuns Other [facility] [employer] Other 11-10-2023 14:30-0500 Systolic blood pressure 128 mm[Hg] Ellen Kuns Other [facility] 09-02-2023 13:45-0500 Body height 180.34 cm Ellen Kuns Other [employer] Other 09-02-2023 13:45-0500 Diastolic blood pressure 62 mm[Hg] Ellen Kuns Other [employer] Other 09-02-2023 13:45-0500 Respiratory rate 18 /min Ellen Kuns Other [employer] Other 09-02-2023 13:45-0500 SaO2% (BldA) [Mass fraction] 97 % Ellen Kuns Other [employer] Other 09-02-2023 13:45-0500 Systolic blood pressure 92 mm[Hg] Ellen Kuns Other [employer] Other 05-19-2023 15:15-0400 Body height 180.34 cm Ellen Kuns Other [employer] Other 05-19-2023 15:15-0400 Diastolic blood pressure 60 mm[Hg] Ellen Kuns Other [employer] Other 05-19-2023 15:15-0400 Respiratory rate 18 /min Ellen Kuns Other [employer] Other 05-19-2023 15:15-0400 SaO2% (BldA) [Mass fraction] 98 % Ellen Kuns Other [employer] Other 05-19-2023 15:15-0400 Systolic blood pressure 80 mm[Hg] Ellen Kuns Other [employer] Other 03-20-2023 09:06-0400 Blood Pressure Location Fidel IBARRA [facility] 03-20-2023 09:06-0400 Diastolic blood pressure 78 mm[Hg] Fidel IBARRA [facility] 03-20-2023 09:06-0400 Heart rate 70 /min Fidel IBARRA [facility] 03-20-2023 09:06-0400 Respiratory rate 16 /min Fidel IBARRA [facility] 03-20-2023 09:06-0400 Systolic blood pressure 132 mm[Hg] Fidel IBARRA [facility] 02-20-2023 09:33-0400 Blood Pressure Location Fidel IBARRA [facility] 02-20-2023 09:33-0400 Diastolic blood pressure 78 mm[Hg] Fidel IBARRA [facility] 02-20-2023 09:33-0400 Heart rate 68 /min Fidel IBARRA [facility] 02-20-2023 09:33-0400 Respiratory rate 16 /min Fidel IBARRA [facility] 02-20-2023 09:33-0400 Systolic blood pressure 130 mm[Hg] Fidel IBARRA [facility] 01-30-2023 11:54-0400 Blood Pressure Location Fidel IBARRA [facility] 01-30-2023 11:54-0400 Diastolic blood pressure 72 mm[Hg] Fidel IBARRA [facility] 01-30-2023 11:54-0400 Heart rate 68 /min Fidel IBARRA [facility] 01-30-2023 11:54-0400 Respiratory rate 16 /min Fidel IBARRA [facility] 01-30-2023 11:54-0400 Systolic blood pressure 99 mm[Hg] Fidel IBARRA [facility] 11-11-2022 15:00-0500 Body height 180.34 cm Ellen Kuns Other [employer] Other 11-11-2022 15:00-0500 Body mass index (BMI) [Ratio] 28.59 kg/m2 Ellen Kuns Other [employer] Other 11-11-2022 15:00-0500 Body temperature 95.6 [degF] Ellen Kuns Other [employer] Other 11-11-2022 15:00-0500 Body weight 92.99 kg Ellen Kuns Other [employer] Other 11-11-2022 15:00-0500 Diastolic blood pressure 56 mm[Hg] Ellen Kuns Other [employer] Other 11-11-2022 15:00-0500 Respiratory rate 18 /min Ellen Kuns Other [employer] Other 11-11-2022 15:00-0500 SaO2% (BldA) [Mass fraction] 99 % Ellen Kuns Other [employer] Other 11-11-2022 15:00-0500 Systolic blood pressure 80 mm[Hg] Ellen Kuns Other [employer] Other 09-02-2022 14:45-0500 Body height 180.34 cm Ellen Kuns Other [employer] Other 09-02-2022 14:45-0500 Body mass index (BMI) [Ratio] 27.19 kg/m2 Ellen Kuns Other [employer] Other 09-02-2022 14:45-0500 Body weight 88.45 kg Ellen Kuns Other [employer] Other 09-02-2022 14:45-0500 Diastolic blood pressure 60 mm[Hg] Ellen Kuns Other [employer] Other 09-02-2022 14:45-0500 Respiratory rate 18 /min Ellen Kuns Other [employer] Other 09-02-2022 14:45-0500 SaO2% (BldA) [Mass fraction] 92 % Ellen Kuns Other [employer] Other 09-02-2022 14:45-0500 Systolic blood pressure 92 mm[Hg] Ellen Kuns Other [employer] Other 02-18-2022 09:29-0400 Diastolic blood pressure 55 mm[Hg] Frank Oden MD Work Phone: [employer] 02-18-2022 09:29-0400 Systolic blood pressure 105 mm[Hg] Frank Oden MD Work Phone: [employer] 02-18-2022 08:30-0400 Body temperature 97.9 [degF] Frank Oden MD Work Phone: [employer] 02-18-2022 08:30-0400 Heart rate 75 /min Frank Oden MD Work Phone: [employer] 02-18-2022 08:30-0400 Respiratory rate 18 /min Frank Oden MD Work Phone: [employer] 02-18-2022 08:30-0400 SaO2% (BldA) [Mass fraction] 97 % Frank Oden MD Work Phone: [employer] 02-09-2022 05:15-0400 Body mass index (BMI) [Ratio] 34.44 kg/m2 Frank Oden MD Work Phone: [employer] 02-09-2022 05:15-0400 Body weight 108.86 kg Frank Oden MD Work Phone: [employer] 02-07-2022 09:09-0400 Body height 177.8 cm Frank Oden MD Work Phone: [employer] 01-27-2022 10:15-0400 Body height 180.34 cm [employer]Viss Other [employer] Other 01-27-2022 10:15-0400 Body mass index (BMI) [Ratio] 29.15 kg/m2 [employer] Other [employer] Other 01-27-2022 10:15-0400 Body weight 94.8 kg Ellen Soundays Other [employer] Other 01-27-2022 10:15-0400 Diastolic blood pressure 70 mm[Hg] Ellen Sound[employer] Other [employer] Other 01-27-2022 10:15-0400 Respiratory rate 18 /min Ellen Sound[employer] Other [employer] Other 01-27-2022 10:15-0400 SaO2% (BldA) [Mass fraction] 98 % EllenAleths Other [employer] Other 01-27-2022 10:15-0400 Systolic blood pressure 98 mm[Hg] Ellen Kuns Other [employer] Other 12-05-2021 15:00-0500 Body height 180.34 cm Ellen Kuns Other [employer] Other 12-05-2021 15:00-0500 Body mass index (BMI) [Ratio] 29.43 kg/m2 Ellen Kuns Other [employer] Other 12-05-2021 15:00-0500 Body weight 95.71 kg Ellen Kuns Other [employer] Other 12-05-2021 15:00-0500 Diastolic blood pressure 70 mm[Hg] Ellen Kuns Other [employer] Other 12-05-2021 15:00-0500 Respiratory rate 18 /min Ellen Kuns Other [employer] Other 12-05-2021 15:00-0500 SaO2% (BldA) [Mass fraction] 99 % Ellen Kuns Other [employer] Other 12-05-2021 15:00-0500 Systolic blood pressure 106 mm[Hg] Ellen Kuns Other [employer] Other 12-03-2021 16:32-0500 Body height 177.8 cm [employer] 12-03-2021 16:32-0500 Body mass index (BMI) [Ratio] 30.42 kg/m2 [employer] 12-03-2021 16:32-0500 Body surface area Derived from formula 2.18 m2 [employer] 12-03-2021 16:32-0500 Body weight 96.16 kg [employer] 12-03-2021 16:32-0500 Diastolic blood pressure 62 mm[Hg] [employer] 12-03-2021 16:32-0500 Heart rate 80 /min [employer] 12-03-2021 16:32-0500 Systolic blood pressure 102 mm[Hg] [employer] 11-19-2021 14:44-0500 Body height 177.8 cm [employer] 11-19-2021 14:44-0500 Body mass index (BMI) [Ratio] 31.18 kg/m2 [employer] 11-19-2021 14:44-0500 Body surface area Derived from formula 2.21 m2 [employer] 11-19-2021 14:44-0500 Body weight 98.57 kg [employer] 11-19-2021 14:44-0500 Diastolic blood pressure 70 mm[Hg] [employer] 11-19-2021 14:44-0500 Heart rate 64 /min [employer] 11-19-2021 14:44-0500 Systolic blood pressure 110 mm[Hg] [employer] 09-05-2021 12:00-0500 58 1 Ellen R Kuns Work Phone: [facility] [employer] [address] [place] Work Phone: Comment on above: [id number] 08-27-2021 11:30-0500 Body height 180.34 cm Ellen Kuns Other [employer] Other 08-27-2021 11:30-0500 Body mass index (BMI) [Ratio] 31.24 kg/m2 Ellen Kuns Other [employer] Other 08-27-2021 11:30-0500 Body weight 101.61 kg Ellen Kuns Other [employer] Other 08-27-2021 11:30-0500 Diastolic blood pressure 68 mm[Hg] Ellen Kuns Other [employer] Other 08-27-2021 11:30-0500 Respiratory rate 18 /min Ellen Kuns Other [employer] Other 08-27-2021 11:30-0500 SaO2% (BldA) [Mass fraction] 98 % Ellen Kuns Other [employer] Other 08-27-2021 11:30-0500 Systolic blood pressure 98 mm[Hg] Ellen Kuns Other [employer] Other 08-16-2021 14:23-0400 Diastolic blood pressure 68 mm[Hg] Ellen R Kuns Work Phone: [facility] [place] [address] DO Work Phone: 08-16-2021 14:23-0400 Systolic blood pressure 90 mm[Hg] Ellen R Kuns Work Phone: [facility] 250 DO Work Phone: 08-16-2021 14:21-0400 Body height 177.8 cm Ellen R Kuns Work Phone: [facility] 250 DO Work Phone: 08-16-2021 14:21-0400 Body mass index (BMI) [Ratio] 32.14 kg/m2 Ellen R Kuns Work Phone: [facility] 250 DO Work Phone: 08-16-2021 14:21-0400 Body surface area Derived from formula 2.19 m2 Ellen R Kuns Work Phone: [facility] 250 DO Work Phone: 08-16-2021 14:21-0400 Body weight 101.61 kg Ellen R Kuns Work Phone: [facility] 250 DO Work Phone: 08-16-2021 14:21-0400 Diastolic blood pressure 68 mm[Hg] Ellen R Kuns Work Phone: [facility] 250 DO Work Phone: 08-16-2021 14:21-0400 Heart rate 72 /min Ellen R Kuns Work Phone: [facility] [address] DO Work Phone: 08-16-2021 14:21-0400 Systolic blood pressure 90 mm[Hg] Ellen R Kuns Work Phone: [facility] [address] DO Work Phone: Encounters Encounter Date Encounter Type Care Provider Facility Start: 08-02-2025 ambulatory Michelle Mahoney Facility:[facility] Start: 07-20-2025 ambulatory [facility] Start: 07-13-2025 End: 07-13-2025 Isabelle Bowden MD Work Phone: [facility] Comment on above: Spinal stenosis of l umbar region with neurogenic claudication Start: 07-12-2025 End: 07-12-2025 ambulatory Michelle Mahoney Facility:[facility] Start: 07-12-2025 End: 07-12-2025 Patient encounter procedure Michelle Mahoney [facility] Start: 07-12-2025 Non-patient / Non-visit Steven Gonzales MD -[facility] Work Phone: Start: 07-06-[address] [facility] Start: 07-06-2025 End: 07-06-[address] [facility] Start: 07-05-2025 Non-patient / Non-visit Rock Currie MD -[facility] Work Phone: Start: 06-28-2025 Non-patient / Non-visit Rock Currie MD -[facility] Work Phone: Start: 06-28-2025 End: 07-17-2025 Evaluation and management of inpatient Aleshia Neva Facility:[facility] Start: 06-26-2025 Evaluation and management of inpatient [facility] Start: 06-20-2025 Evaluation and management of inpatient [facility] Start: 06-20-2025 Evaluation and management of inpatient [facility] Start: 06-20-2025 Evaluation and management of inpatient [facility] Start: 06-20-2025 Evaluation and management of inpatient HERMINIO CHOE [facility] Start: 06-16-2025 Evaluation and management of inpatient SAUMYA CHANDRA [facility] Start: 06-15-2025 Evaluation and management of inpatient [facility] Start: 06-15-2025 Evaluation and management of inpatient SAUMYA CHANDRA [facility] Start: 06-15-2025 Evaluation and management of inpatient DEVEN [facility] Start: 06-15-2025 End: 06-28-2025 Evaluation and management of inpatient ROBERTH LUIS [facility] Start: 06-15-2025 Non-patient / Non-visit [facility] Work Phone: Start: 06-14-2025 End: 06-14-2025 ambulatory Michelleanaya Andersona Facility:[facility] Start: 06-13-2025 End: 06-13-2025 Patient encounter procedure Michelle [facility] Start: 06-12-2025 End: 06-12-2025 ambulatory JAC SALINAS [facility] Start: 06-06-2025 End: 06-06-2025 Telephone encounter Eliane Ken [facility] Neurology, A Department of [facility] Comment on above: New Patient Start: 06-05-2025 ambulatory [facility] Start: 06-05-2025 End: 06-05-2025 ambulatory [facility] Start: 05-29-2025 Non-patient / Non-visit Ellen Crabtree [facility] [employer] Work Phone: Start: 05-15-2025 End: 05-15-2025 ambulatory LYN MACE Facility:[facility] Start: 05-15-2025 End: 05-15-2025 Patient encounter procedure LYN MACE [facility] [employer] Start: 04-26-2025 End: 04-26-2025 Orders Only Lyn Banks MD Work Phone: [facility] Comment on above: Chronic intractable headache, unspecified headache type (Primary Dx) Start: 04-25-2025 End: 04-25-2025 ambulatory LORA BARGERCKO [facility] Start: 04-24-2025 End: 04-24-2025 ambulatory LYN MACE Facility:[facility] Start: 04-24-2025 End: 04-24-2025 Patient encounter procedure LYN MACE [facility] Start: 04-19-2025 End: 04-19-2025 Orders Only Lyn Banks MD Work Phone: [facility] Comment on above: Parkinson's disease without dyskinesia or fluctuating manifestations (CMS-HCC) (Primary Dx); Dysphagia, unspecified type Start: 04-11-2025 End: 04-11-2025 Clinisync Result Encounter Heidy Marin MD Work Phone: [facility] External Department Unsolicited Start: 04-11-2025 End: 04-11-2025 Clinisync Result Encounter Heidy Marin MD Work Phone: [facility] External Department Unsolicited Start: 04-05-2025 End: 04-05-2025 [facility] Start: 04-04-2025 End: 04-06-2025 Iasbelle Bowden MD Work Phone: [facility] Comment on above: Spinal stenosis of l umbar region with neurogenic claudication Start: 03-31-2025 End: 03-31-2025 Orders Only Lyn Banks MD Work Phone: [facility] Neurology, A Department of [facility] Comment on above: Dysautonomia orthost atic hypotension syndrome (Primary Dx) Start: 03-31-2025 End: 03-31-2025 Patient encounter procedure LYN MACE [facility] Start: 03-29-2025 End: 03-29-2025 ambulatory [facility] Start: 03-16-2025 End: 03-16-2025 Office outpatient visit 15 minutes Heidy Marin MD Work Phone: [facility] Comment on above: Encounter for abdomi nal aortic aneurysm (AAA) screening (Primary Dx); Open wound of left great toe, subsequent encounter; Critical limb ischemia of left lower extremity with gangrene ([facility]-H[facility]) Start: 03-16-2025 End: 03-16-2025 [facility] Start: 03-14-2025 End: 03-14-2025 ambulatory [facility] Start: 03-14-2025 End: 03-14-2025 Office outpatient visit 40 minutes Lyn Banks MD Work Phone: [facility] Neurology, A Department of [facility] Comment on above: Dysphagia, unspecifi ed type (Primary Dx); Globus sensation; Dysautonomia orthostatic hypotension syndrome; Constipation, unspecified constipation type; Cerebellar dysmetria Start: 03-10-2025 End: 03-10-2025 ambulatory LYN E RODRI Facility:[facility] Start: 02-28-2025 End: 02-28-2025 Clinisync Result Encounter Heidy Marin MD Work Phone: [facility] External Department Unsolicited Start: 02-28-2025 End: 02-28-2025 Clinisync Result Encounter Heidy Marin MD Work Phone: [facility] External Department Unsolicited Start: 02-24-2025 ambulatory LYN E RODRI Facili ty:[facility] [place] Start: 02-17-2025 End: 02-17-2025 ambulatory LYN E RODRI Facility:[facility] Start: 02-15-2025 End: 02-15-2025 ambulatory Ellen Crabtree DO Work Phone: [facility] Work Phone: Start: 02-15-2025 End: 02-15-2025 Patient encounter procedure Ellen Kuns DO Work Phone: [facility]-CT Scan [place] Work Phone: Start: 01-30-2025 End: 01-30-2025 Patient encounter procedure Ellen Kuns DO Work Phone: [facility] Physician [facility] Work Phone: Start: 01-26-2025 End: 01-26-2025 ambulatory LYN E RODRI Facility:[facility] Start: 12-29-2024 End: 12-29-2024 ambulatory Ellen Kuns DO Work Phone: [facility] Work Phone: Start: 12-29-2024 End: 12-29-2024 Patient encounter procedure Ellen Kuns DO Work Phone: [facility] Physician [facility] [place] Work Phone: Start: 12-27-2024 End: 12-27-2024 ambulatory LYN E RODRI Facility:[facility] Start: 12-13-2024 Non-patient / Non-visit Ellen Kuns DO Work Phone: [facility] Physician [facility] Work Phone: Start: 12-13-2024 End: 12-13-2024 ambulatory Ellen Kuns DO Work Phone: [facility] Work Phone: Start: 12-13-2024 End: 12-13-2024 Departed Referred Ellen Kuns DO Work Phone: [facility]-LAB [facility] [place] [facility] Start: 12-13-2024 Non-patient / Non-visit Ellen Kuns DO Work Phone: [facility] Physician [facility] [employer] Work Phone: Start: 11-28-2024 End: 11-28-2024 ambulatory LYN E RODRI [facility] Start: 11-28-2024 End: 11-28-2024 Lab Drop off LYN Skyla RODRI [facility] Start: 11-28-2024 End: 11-28-2024 ambulatory LYN E RODRI Facility:[facility] Start: 11-28-2024 End: 11-28-2024 Patient encounter procedure LYN Skyla RODRI [facility] Start: 11-28-2024 End: 11-28-2024 Patient encounter procedure Ellen Kuns DO Work Phone: [facility] [place] Work Phone: Start: 11-28-2024 End: 11-28-2024 ambulatory Ellen Kuns DO Work Phone: [facility] Work Phone: Start: 11-25-2024 ambulatory LYN Skyla RODRI Facili ty:[facility] Start: 11-23-2024 End: 11-23-2024 Refill Samira Bowden MD Work Phone: [facility] Comment on above: Parkinson's disease ([facility]) Start: 11-23-2024 End: 11-23-2024 Refill Samira Bowden MD Work Phone: [facility] Comment on above: Parkinson's disease ([facility]) Start: 11-19-2024 End: 11-21-2024 Refill Samira Bowden MD Work Phone: [facility] Comment on above: Parkinson's disease ([facility]) Start: 10-28-2024 End: 10-28-2024 ambulatory PA-C LYN Skyla RODRI Facility:[facility] Start: 10-28-2024 End: 10-28-2024 Patient encounter procedure [facility]YN [facility]ACE [facility] Start: 10-24-2024 End: 10-24-2024 Refill Samira Bowden MD Work Phone: [facility] Comment on above: Orthostasis Start: 09-27-2024 End: 09-27-2024 Emergency department patient visit Ellen Crabtree DO Work Phone: [facility] Work Phone: Start: 09-27-2024 End: 09-27-2024 ambulatory PA-C LYN Crum [facility]ODRI [facility] Start: 09-27-2024 End: 09-27-2024 Lab Drop off LYN MACE [facility] Start: 09-27-2024 End: 09-27-2024 ambulatory PA-C LYN Skyla RODRI Facility:[facility] Start: 09-27-2024 End: 09-27-2024 Patient encounter procedure LYN MACE [facility] Start: 09-26-2024 End: 09-30-2024 Refill Reena SPEARS Work Phone: [facility] Comment on above: Orthostasis Start: 09-25-2024 End: 09-30-2024 Refill Jose Eduardo Owen MD Work Phone: [facility] Comment on above: Migraine without aur a and without status migrainosus, not intractable Spinal stenosis of l umbar region with neurogenic claudication Start: 08-30-2024 End: 08-30-2024 ambulatory PA-C LYN E RODRI Facility:[facility] [place] Start: 08-30-2024 End: 08-30-2024 Patient encounter procedure LYN MACE [facility] Start: 08-29-2024 End: 08-31-2024 Refill Samira Bowden MD Work Phone: [facility] Comment on above: Parkinson's disease ([facility] Start: 08-23-2024 End: 08-23-2024 Office outpatient visit 40 minutes Samira Bowden MD Work Phone: [facility] Comment on above: 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); Spinal stenosis of lumbar region with neurogenic claudication; Parkinson's disease without dyskinesia or fluctuating manifestations ([facility]) Start: 08-23-2024 End: 08-23-2024 ambulatory SAMIRA BOWDEN [facility] Start: 08-09-2024 End: 08-09-2024 ambulatory Pippa X Orzech Facility:[facility] Start: 08-09-2024 End: 08-09-2024 Patient encounter procedure Pippa X Orzech [facility] Start: 07-31-2024 End: 08-03-2024 Refill Reena Cervantes APRN-GED INSTRUCTOR Work Phone: [facility] Comment on above: Spinal stenosis of l umbar region with neurogenic claudication Start: 07-19-2024 End: 07-19-2024 ambulatory SHRAVAN-C LYN MACE Facility:[facility] Start: 07-19-2024 End: 07-19-2024 Patient encounter procedure LYN MACE [facility] Start: 07-14-2024 End: 07-15-2024 Refill Reena Cervantes APRN-GED INSTRUCTOR Work Phone: [facility] Comment on above: Orthostatic hypotens ion due to Parkinson's disease ([facility]) Start: 06-30-2024 End: 06-30-2024 ambulatory Madeline Foster Facility:[facility] Start: 06-30-2024 End: 06-30-2024 Patient encounter procedure Madeline Foster [facility] Start: 06-21-2024 End: 06-21-2024 ambulatory [facility] Work Phone: Start: 06-21-2024 End: 06-21-2024 Patient encounter procedure [facility] Work Phone: Start: 06-14-2024 End: 06-14-2024 ambulatory Fidel IBARRA [facility] Start: 06-14-2024 End: 06-14-2024 Lab Drop off Fidel IBARRA [facility] Start: 06-14-2024 End: 06-14-2024 ambulatory Fidel IBARRA Facility:[facility] Start: 06-14-2024 End: 06-14-2024 Patient encounter procedure Fidel IBARRA [facility] Start: 06-09-2024 End: 06-09-2024 ambulatory LYN MACE Facility:[facility] Start: 06-09-2024 End: 06-09-2024 Patient encounter procedure LYN MACE [facility] Start: 05-25-2024 Non-patient / Non-visit [facility] Work Phone: Start: 05-24-2024 End: 05-25-2024 Isabelle Owen MD Work Phone: [facility] Comment on above: Migraine without aur a and without status migrainosus, not intractable Start: 05-16-2024 End: 05-16-2024 ambulatory Fidel IBARRA Facility:[id number] Start: 04-27-2024 Non-patient / Non-visit [facility] Work Phone: Start: 04-26-2024 Non-patient / Non-visit [facility] Work Phone: Start: 04-26-2024 End: 04-26-2024 ambulatory Carl BRIZUELA Facility:[id number] Start: 04-25-2024 Non-patient / Non-visit [facility] Work Phone: Start: 04-24-2024 End: 04-27-2024 Non-patient / Non-visit [facility] Work Phone: Start: 04-24-2024 Non-patient / Non-visit [facility] Work Phone: Start: 04-23-2024 Non-patient / Non-visit [facility] Work Phone: Start: 04-11-2024 End: 04-29-2024 Refill Reena Cervantes APRN-GED INSTRUCTOR Work Phone: [facility] Comment on above: Spinal stenosis of l umbar region with neurogenic claudication Start: 04-05-2024 End: 04-05-2024 Lab Drop off Pippa X Orzech [facility] Start: 04-05-2024 End: 04-05-2024 ambulatory Pippa X Orzech [facility] Start: 04-05-2024 End: 04-05-2024 Patient encounter procedure Pippa X Orzech [facility] Start: 03-28-2024 End: 03-28-2024 Telephone encounter Rachel Mixon [facility] Start: 03-17-2024 End: 03-17-2024 Office outpatient visit 15 minutes Heidy Marin MD Work Phone: [facility] Comment on above: 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 ([facility]) (Primary Dx) Start: 03-15-2024 End: 03-15-2024 ambulatory Pippa X Orzech Facility:[facility] Start: 03-15-2024 End: 03-15-2024 Patient encounter procedure Pippa X Orzech [facility] Start: 02-25-2024 End: 02-25-2024 Telephone encounter Rachel Mixon CMA [facility] Start: 02-23-2024 End: 02-23-2024 ambulatory Fidel IBARRA [facility] Start: 02-23-2024 End: 02-23-2024 Lab Drop off Fidel IBARRA [facility] Start: 02-22-2024 End: 02-23-2024 ambulatory Fidel IBARRA Facility:[facility] Comment on above: Migraine without aur a and without status migrainosus, not intractable Start: 02-22-2024 End: 02-22-2024 Patient encounter procedure Fidel IBARRA [facility] Start: 02-18-2024 End: 02-18-2024 Telephone encounter Rachel Mixon CMA [facility] Start: 02-15-2024 End: 02-15-2024 Telephone encounter Rachel Mixon CMA [facility] Start: 02-13-2024 End: 02-15-2024 Isabelle Owen MD Work Phone: [facility] Comment on above: Migraine without aur a and without status migrainosus, not intractable Start: 02-11-2024 Non-patient / Non-visit DO Barbie eliane Bordens Work Phone: [facility] Gastroenterology Work Phone: Start: 02-11-2024 End: 02-11-2024 Admission to same day surgery center DO Ellen Crabtree Work Phone: [facility] Work Phone: Start: 02-11-2024 End: 02-11-2024 ambulatory DO Ellen Kuns Work Phone: [facility] Work Phone: Start: 02-10-2024 End: 02-10-2024 ambulatory [facility] Work Phone: Start: 02-10-2024 End: 02-10-2024 Patient encounter procedure [facility] [place] Work Phone: Start: 02-09-2024 End: 02-15-2024 Refill Jose Eduardo Owen MD Work Phone: [facility] Comment on above: Migraine without aur a and without status migrainosus, not intractable Start: 02-01-2024 End: 02-01-2024 ambulatory Fidel IBARRA Facility:[facility] Start: 02-01-2024 End: 02-01-2024 Patient encounter procedure Fidel IBARRA [facility] Start: 01-28-2024 End: 01-28-2024 Telephone encounter Rachel Mixon [facility] Start: 01-28-2024 End: 01-28-2024 Office outpatient visit 25 minutes Hiedy Marin MD Work Phone: [facility] Comment on above: Encounter for screen ing for abdominal aortic aneurysm (AAA) in patient 50 years of age or older with history of smoking (Primary Dx); Critical limb ischemia of both lower extremities with gangrene (CMS-HCC); Abdominal aortic aneurysm dissection ([facility]) Start: 01-22-2024 End: 01-22-2024 ambulatory [facility] Work Phone: Start: 01-22-2024 End: 01-22-2024 Patient encounter procedure [facility] G[facility] Work Phone: Start: 01-12-2024 Telephone encounter Rachel [facility] Start: 01-11-2024 End: 01-11-2024 ambulatory Fidel IBARRA Facility:[facility] Start: 01-11-2024 End: 01-11-2024 Patient encounter procedure Fidel IBARRA [facility] Start: 01-08-2024 Telephone encounter Rachel [facility] Start: 01-06-2024 Non-patient / Non-visit [facility] Work Phone: Start: 12-14-2023 End: 12-14-2023 ambulatory Fidel IBARRA Facility:[facility] Start: 12-11-2023 Refill Fidelia nicole [facility] Comment on above: Orthostasis Start: 11-17-2023 Telephone encounter Ellen Crabtree [facility] [place] Start: 11-17-2023 End: 11-17-2023 ambulatory Fidel IBARRA [facility] [employer] Other Start: 11-17-2023 End: 11-17-2023 Patient encounter procedure Fidel IBARRA [facility] Start: 11-16-2023 End: 11-16-2023 Office outpatient visit 40 minutes Reena SPEARS Work Phone: [facility] Comment on above: Parkinson's disease without dyskinesia or fluctuating manifestations (Primary Dx); Spinal stenosis of lumbar region with neurogenic claudication; Anxiety Start: 11-14-2023 Refill Samira amezquita MD Work Phone: [facility] Comment on above: Parkinson's disease Start: 11-10-2023 End: 11-10-2023 ambulatory Ellen Kuns Other [employer] Other Start: 11-10-2023 Office outpatient vi sit 25 minutes Ellen Kuns [facility] [place] Start: 11-10-2023 End: 11-10-2023 Patient encounter procedure [facility]- Start: 11-09-2023 End: 11-09-2023 ambulatory Samira Bowden MD Work Phone: [facility] [employer] [facility] Comment on above: Parkinson's disease Start: 11-09-2023 Telephone encounter Ellen Kuns [facility] [place] Start: 10-21-2023 End: 10-21-2023 Lab Drop off Fidel IBARRA [facility] Start: 10-21-2023 End: 10-21-2023 ambulatory Fidel IBARRA [facility] Start: 10-05-2023 End: 10-05-2023 ambulatory Ellen Kuns Other [employer] Other Start: 10-05-2023 Telephone encounter Ellen Kuns [facility] [place] Start: 09-22-2023 End: 09-22-2023 ambulatory Ellen Kuns Other [employer] Other Start: 09-22-2023 Telephone encounter Ellen Kuns [facility] [place] Start: 09-16-2023 End: 09-16-2023 ambulatory Ellen Kuns Other [employer] Other Start: 09-16-2023 Telephone encounter Ellen Kuns [facility] [place] Start: 09-15-2023 Telephone encounter Ellen Kuns [facility] [place] Start: 09-15-2023 End: 09-15-2023 ambulatory Fidel IBARRA [facility] [employer] Other Start: 09-15-2023 End: 09-15-2023 Patient encounter procedure Fidel IBARRA [facility] Start: 09-02-2023 End: 09-02-2023 ambulatory Ellen Crabtree Other [employer] Other Start: 09-02-2023 Office outpatient vi sit 25 minutes Ellen Crabtree [facility] Start: 08-25-2023 End: 08-25-2023 ambulatory Ellen Crabtree Other [employer] Other Start: 08-25-2023 Telephone encounter Ellen Crabtree [facility] Start: 08-14-2023 End: 08-14-2023 ambulatory Fidel IBARRA Facility:[facility] [place] Start: 08-14-2023 End: 08-14-2023 Patient encounter procedure Fidel IBARRA [facility] Start: 07-17-2023 End: 07-17-2023 ambulatory Fidel IBARRA [facility] Start: 07-17-2023 End: 07-17-2023 Lab Drop off Fidel IBARRA [facility] Start: 07-17-2023 End: 07-17-2023 ambulatory Fidel IBARRA Facility:[facility] [place] Start: 07-17-2023 End: 07-17-2023 Patient encounter procedure Fidel IBARRA [facility] Start: 07-03-2023 End: 07-03-2023 ambulatory Ellen Kuns Other [employer] Other Start: 07-03-2023 Telephone [facility] Start: 07-01-2023 End: 07-01-2023 ambulatory Fidel IBARRA [facility] Start: 06-19-2023 End: 06-19-2023 ambulatory Fidel IBARRA [facility] Start: 06-19-2023 End: 06-19-2023 Lab Drop off Fidel R IBARRA [facility] Start: 06-19-2023 End: 06-19-2023 ambulatory Fidel IBARRA Facility:[facility] Start: 06-19-2023 End: 06-19-2023 Patient encounter procedure Fidel IBARRA [facility] Start: 06-16-2023 End: 06-16-2023 ambulatory Ellen Kuns Other [employer] Other Start: 06-16-2023 Telephone encounter Ellen Kuns [facility] Start: 06-11-2023 End: 06-11-2023 ambulatory Ellen Kuns Other [employer] Other Start: 06-11-2023 Telephone encounter Ellen Kuns [facility] Start: 05-26-2023 End: 05-26-2023 ambulatory Ellen Kuns Other [employer] Other Start: 05-26-2023 Telephone encounter Ellen Kuns [facility] Start: 05-25-2023 End: 05-25-2023 Lab Drop off Fidel Arin WALTER [facility] Start: 05-25-2023 End: 05-25-2023 ambulatory Fidel IBARRA [facility] Start: 05-25-2023 End: 05-25-2023 Patient encounter procedure Fidel IBARRA [facility] [employer] Start: 05-19-2023 End: 05-19-2023 ambulatory Ellen Michis Other [employer] Other Start: 05-19-2023 Office outpatient vi sit 25 minutes Ellen Kuns [facility] Start: 04-27-2023 Telephone encounter Ellen Michis [facility] Start: 04-27-2023 End: 04-27-2023 ambulatory Fidel IBARRA [employer] Other Start: 04-27-2023 End: 04-27-2023 Patient encounter procedure Fidel IBARRA [facility] [employer] Start: 04-16-2023 End: 04-16-2023 ambulatory Ellen Kuns Other [employer] Other Start: 04-16-2023 Telephone encounter Ellen Kuns [facility] Start: 03-20-2023 End: 03-20-2023 Patient encounter procedure Fidel IBARRA [facility] [employer] Start: 03-20-2023 End: 03-20-2023 Patient encounter procedure Fidel IBARRA [facility] [employer] Start: 03-19-2023 End: 03-19-2023 ambulatory Ellen Kuns Other [employer] Other Start: 03-19-2023 Telephone encounter Ellen Kuns [facility] Start: 02-20-2023 End: 02-20-2023 Patient encounter procedure Fidel IBARRA [facility] Start: 02-17-2023 End: 02-17-2023 ambulatory Ellen Kuns Other [employer] Other Start: 02-17-2023 Telephone encounter Ellen Kuns [facility] Start: 02-16-2023 End: 02-16-2023 ambulatory Ellen Kuns Other [employer] Other Start: 02-16-2023 Telephone encounter Ellen Kuns [facility] Start: 02-11-2023 End: 02-11-2023 ambulatory Ellen Kuns Other [employer] Other Start: 02-11-2023 Telephone encounter Ellen Kuns [facility] Start: 01-30-2023 End: 01-30-2023 Patient encounter procedure Fidel IBARRA [facility] Start: 01-24-2023 Encounter for preprocedural cardiovascular examination DR FIDEL IBARRA . [facility] Start: 01-24-2023 Encounter for preprocedural laboratory examination DR FIDEL IBARRA . [facility] Start: 01-22-2023 End: 01-22-[address] FIDEL IBARRA . Facility:[facility] Start: 01-20-2023 End: 01-21-[address] FIDEL IBARRA . Facility:[facility] Start: 01-20-2023 End: 01-21-2023 Encounter for preprocedural cardiovascular examination DR FIDEL IBARRA . Facility:[facility] Start: 01-14-2023 End: 01-14-2023 ambulatory Ellen Kuns Other [employer] Other Start: 01-14-2023 Telephone encounter Ellen Kuns [facility] [place] Start: 12-24-2022 End: 12-24-2022 Unlisted evaluation and management service Say Reyes APRN.GED INSTRUCTOR Work Phone: Urology Comment on above: NO SHOW (Primary Dx) Start: 12-18-2022 End: 12-18-2022 ambulatory MICHELL LEYDA . Facility: Start: 12-08-2022 End: 12-08-2022 ambulatory Ellen Kuns Other [employer] Other Start: 12-08-2022 Telephone encounter [facility] Kuns [facility] Start: 12-06-2022 ambulatory Zelda Saenz RN NURSE O N CALL Comment on above: Medication Problem Start: 12-01-2022 End: 12-01-2022 Evaluation and management of inpatient SUSIE Adrianne SHAHIA Facility:[facility] Start: 11-20-2022 End: 12-06-2022 Evaluation and management of inpatient ELLEN BOOGIEALIRIO BORDENS Facility:[facility] Start: 11-19-2022 End: 11-19-2022 ambulatory Ellen Kuns Other [employer] Other Start: 11-19-2022 Telephone encounter Ellen Kuns [facility] [place] Start: 11-17-2022 End: 11-17-2022 ambulatory Ellen Kuns Other [employer] Other Start: 11-17-2022 Telephone encounter Ellen Kuns [facility] [place] Start: 11-14-2022 End: 11-14-2022 ambulatory Ellen Kuns Other [employer] Other Start: 11-14-2022 Telephone encounter Ellen Kuns [facility] [place] Start: 11-11-2022 End: 11-11-2022 ambulatory Ellen Kuns Other [employer] Other Start: 11-11-2022 Office outpatient vi sit 25 minutes Ellen Kuns [facility] [place] Start: 11-10-2022 End: 11-10-2022 ambulatory Ellen Kuns Other [employer] Other Start: 11-10-2022 Telephone encounter [facility] Kuns [facility] Start: 11-05-2022 End: 11-09-2022 Evaluation and management of inpatient DR ALTON MANCINI . Facility:[facility] Start: 10-08-2022 End: 10-08-[address] DOCTOR TIPTON Facility:[facility] Start: 09-04-2022 End: 09-04-2022 ambulatory Ellen Kuns Other [employer] Other Start: 09-04-2022 Telephone encounter Ellen Kuns [facility] Start: 09-02-2022 End: 09-02-2022 ambulatory Ellen Kuns Other [employer] Other Start: 09-02-2022 Office outpatient vi sit 25 minutes Ellen Kuns [facility] Start: 08-29-2022 End: 08-29-2022 ambulatory Ellen Kuns Other [employer] Other Start: 08-29-2022 Telephone encounter Ellen Kuns [facility] Start: 08-28-2022 End: 08-28-2022 ambulatory Ellen Kuns Other [employer] Other Start: 08-28-2022 Telephone encounter Ellen Kuns [facility] Start: 06-17-2022 End: 06-17-2022 ambulatory Ellen Kuns Other [employer] Other Start: 06-17-2022 Telephone encounter Ellen Kuns [facility] Start: 05-21-2022 End: 05-21-2022 ambulatory Ellen Kuns Other [employer] Other Start: 05-21-2022 Telephone encounter Ellen Kuns [facility] Start: 04-08-2022 End: 04-08-2022 ambulatory Ellen Kuns Other [employer] Other Start: 04-08-2022 Telephone encounter Ellen Kuns [facility] Start: 04-03-2022 Telephone encounter Ellen R Suleman ns Work Phone: [facility] 600 DO Work Phone: Start: 03-25-2022 End: 03-25-2022 ambulatory Ellen Kuns Other [employer] Other Start: 03-25-2022 Telephone encounter Ellen Kuns [facility] Start: 03-18-2022 End: 03-18-2022 ambulatory Ellen Kuns Other [employer] Other Start: 03-18-2022 Telephone encounter Ellen Kuns [facility] Start: 03-10-2022 End: 03-10-2022 ambulatory Ellne Kuns Other [employer] Other Start: 03-10-2022 Telephone encounter Ellen Kuns [facility] Start: 02-07-2022 End: 02-18-2022 Evaluation and management of inpatient FRANK ODEN [facility] Start: 02-07-2022 End: 02-18-2022 Evaluation and management of inpatient Frank Oden MD Work Phone: [facility] [phone] Comment on above: Lumbar stenosis with neurogenic claudication (Primary Dx) Start: 01-27-2022 End: 01-27-2022 ambulatory Ellen Kuns Other [employer] Other Start: 01-27-2022 Encounter for other preprocedural examination Ellen Michis [facility] Start: 01-27-2022 Office outpatient vi sit 25 minutes Ellen Michis [facility] Start: 01-27-2022 Pre-procedure evalua tion check Ellen Michis Other [employer] Other Start: 01-23-2022 End: 01-24-2022 ambulatory [facility] Start: 01-23-2022 End: 01-28-2022 ambulatory [facility] Start: 01-20-2022 End: 01-20-2022 ambulatory Ellen Michis Other [employer] Other Start: 01-20-2022 Telephone encounter Elleneliane Bordens [facility] Start: 01-13-2022 End: 01-13-2022 ambulatory Ellen Michis Other [employer] Other Start: 01-13-2022 Telephone encounter Elleneliane Bordens [facility] Start: 12-05-2021 End: 12-05-2021 ambulatory Ellen Michis Other [employer] Other Start: 12-05-2021 Office outpatient vi sit 25 minutes Ellen Michis [facility] Start: 12-03-2021 Split Srvc Lashon Orozcobo rne Other [facility] Office Start: 11-19-2021 Split Srvc Lashon G Osbo rne Other [facility] Office Start: 11-11-2021 Telephone encounter Phani Henderson MD Work Phone: [facility] Management Comment on above: Post Op Start: 10-23-2021 End: 10-23-2021 ambulatory Ellen Kuns Other [facility] Other Start: 10-23-2021 Telephone encounter Ellen Kuns [facility] Start: 10-07-2021 End: 10-07-2021 ambulatory Ellen Kuns Other [facility] Other Start: 10-07-2021 [facility] Start: 09-30-2021 End: 09-30-2021 ambulatory Ellen Kuns Other [employer] Other Start: 09-30-2021 Telephone encounter Ellen Kuns [facility] Start: 09-27-2021 End: 09-27-2021 ambulatory Yifan Gama Other [employer] Other Start: 09-27-2021 Telephone encounter Yifan Gama [facility] Gastroenterology Start: 09-08-2021 Chart Update Ellen R Kuns Work Phone: [facility] [address] [place] Work Phone: Start: 09-05-2021 Patient encounter procedure Ellen R Kuns Work Phone: [facility] [address] [place] Work Phone: Start: 09-03-2021 End: 09-03-2021 ambulatory Ellen Kuns Other [employer] Other Start: 09-03-2021 Telephone encounter Ellen Kuns [facility] Start: 08-27-2021 End: 08-27-2021 ambulatory Ellen Kuns Other [employer] Other Start: 08-27-2021 Office outpatient vi sit 25 minutes Ellen Kuns [facility] Start: 08-21-2021 End: 08-21-2021 ambulatory Ellen Crabtree Other [facility] [employer] Other Start: 08-21-2021 Telephone encounter Ellen Crabtree [facility] Start: 08-16-2021 Office consultation new/estab patient 80 min Ellen Crabtree Work Phone: [facility] [address] [place] Work Phone: Start: 08-16-2021 Patient encounter procedure Ellen Crabtree Work Phone: [facility] [address] DO Work Phone: Start: 08-16-2021 Telephone encounter Yifan Silver [facility] Start: 08-06-2021 Office outpatient vi sit 15 minutes Ellen Crabtree [facility] Start: 08-15-2020 End: 08-15-2020 Subsequent hospital visit by physician Ct [facility] Joana Work Phone: Radiology Comment on above: Radiculopathy of lum bar region [M54.16] Start: 06-21-2020 End: 06-21-2020 Subsequent hospital visit by physician Xr [facility] Jazlyn Radiology Comment on above: 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] Start: 06-15-2020 End: 06-15-2020 Subsequent hospital visit by physician Ct [facility] Joana Work Phone: Radiology Comment on above: Pain in thoracic spi ne [M54.6] Start: 12-29-2017 End: 12-31-2017 Evaluation and management of inpatient [facility] Start: 12-07-2017 Ambulatory Critical access hospital Start: 07-01-2017 End: 07-02-2017 Evaluation and management of inpatient [facility] Start: 05-30-2016 End: 06-16-2016 Ambulatory PROVIDER UNKNOWN Facility:[facility] Procedures Date Procedure Procedure Detail Performing Clinician Start: 07-06-2025 Follow-up visit ROBERTH LUIS Start: 04-25-2025 Follow-up visit ROBERTH LUIS Start: 04-11-2025 SEGMENTAL BLOOD PRESSURE Heidy Marin [...] MD Work Phone: Start: 02-09-2022 Cortisol total Radames Tolentino MD Work Phone: Start: 02-09-2022 End: 02-09-2022 Cortisol total Marielena Ramsey NEON SIGN WORKER - GED INSTRUCTOR Work Phone: Start: 02-09-2022 Gluc bld gluc mntr d ev cleared fda spec home use Frank Oden MD Work Phone: Start: 02-09-2022 Cortisol total Radames Tolentino MD Work Phone: Start: 02-09-2022 Blood count complete auto&auto difrntl wbc Marielena Ramsey NEON SIGN WORKER - GED INSTRUCTOR Work Phone: Start: 02-09-2022 Gluc bld gluc mntr d ev cleared fda spec home use Frank Oden MD Work Phone: Start: 02-08-2022 Gluc bld gluc mntr d ev cleared fda spec home use Frank Oden MD Work Phone: Start: 02-08-2022 Anion gap [Moles/Vol] J coy Ramsey NEON SIGN WORKER - GED INSTRUCTOR Work Phone: Start: 02-08-2022 End: 02-08-2022 Basic metabolic panel calcium total Radames Tolentino MD Work Phone: Start: 02-08-2022 GLOMERULAR FILTRATIO N RATE, ESTIMATED Marielena Ramsey NEON SIGN WORKER - GED INSTRUCTOR Work Phone: Start: 02-08-2022 SCAN OF BLOOD SMEAR Ricardo e Ramsey NEON SIGN WORKER - GED INSTRUCTOR Work Phone: Start: 02-08-2022 Gluc bld gluc mntr d ev cleared fda spec home use Frank Oden MD Work Phone: Start: 02-08-2022 Gluc bld gluc mntr d ev cleared fda spec home use Frank Oden MD Work Phone: Start: 02-08-2022 Radiologic exam ches t single view Marielena Mustafa APRN - GED INSTRUCTOR Work Phone: Start: 02-08-2022 Blood count hemoglobin Marielena Mustafa APRN - GED INSTRUCTOR Work Phone: Start: 02-08-2022 Ecg routine ecg w/le ast 12 lds i&r only Marielena Mustafa NEON SIGN WORKER - GED INSTRUCTOR Work Phone: Start: 02-08-2022 Gluc bld gluc [...] Work Phone: Comment on above: Performed at [facility] [address] [place] [address] Start: 02-07-2022 Gluc bld gluc mntr d [...] spine w/ o contrast material Oumou Mcqueen NEON SIGN WORKERAlejandroGED INSTRUCTOR Work Phone: Start: 04-24-2020 Antibody screen Start: 10-18-2019 Antibody screen Start: 03-08-2019 Procedure on prostate P magali IBARRA Start: 03-08-2019 Transurethral prostatectomy Fidel IBARRA Start: 01-25-2019 Injection of therape utic substance into bladder wall Fidel IBARRA Start: 10-19-2018 Total colonoscopy Ellne Crabtree Work Phone: Start: 02-08-2018 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 Phani Henderson MD Work Phone: Start: 01-26-2018 Transurethral insert ion of prostatic urethral lift implant Fidel IBARRA Start: 12-01-2017 Cystoscopy Fidel STILL Start: 10-28-2017 Urodynamic studies Erin IBARRA Start: 08-11-2016 Colonoscopy Phani daniels MD Work Phone: Arthroplasty of knee Ellen R Leyda Work Phone: Comment on above: x 3; Arthroplasty of knee Fidel IBARRA Bypass of stomach Fidel HOLLOWAY CHEKO Colonoscopy Fidel IBARRA Esophagogastrostomy, antesternal or antethoracic Ellen R Kuns Work Phone: Operation on the ear Ellen R Kuns Work Phone: Comment on above: reconstruction; Operative procedure on hand Ellen R Kuns Work Phone: Comment on above: x 3 - right; Procedure on back Ellen R Ku ns Work Phone: Comment on above: x 8; Procedure on lymph node Sunny t R Michis Work Phone: Comment on above: right neck; [...] Td Vaccines (3 - Td or Tdap) [facility] [employer] [facility] Start: 11-15-2028 DTaP/Tdap/Td vaccine (3 - Td or Tdap) DTaP/Tdap/Td vaccine (3 - Td or Tdap) [facility] Start: 11-15-2028 Urine microalbumin profile DTAP,TDAP,TD (3 - Td or Tdap) [facility] Start: 08-11-2026 Colonoscopy COLONOSCOPY [facility] Start: 08-11-2026 COLORECTAL CANCER SCREENING COLORECTAL CANCER SCREENING [facility] Start: 03-16-2026 Adult BMI Screening Adult BMI Screen ing [facility] Start: 03-16-2026 Tobacco Screening Tobacco Screening [facility] Start: 09-12-2025 End: 09-12-2025 Patient encounter procedure 09/12/2025 11:00 AM EST Office Visit [facility] Neurology, A Department of [address] [place] [address] Tony Martin MD [address] [place] [address] [address] [place] [address] [facility] Neurology, A Department of [facility] Start: 08-23-2025 Adult BMI Follow Up Plan Adult BMI F ollow Up Plan [facility] Start: 08-23-2025 Adult BMI Screening Adult BMI Screen ing [facility] Start: 08-23-2025 Depression Screening Depression Scre ening [facility] Start: 08-23-2025 Tobacco Screening Tobacco Screening [facility] Start: 07-26-2025 End: 07-26-2025 Patient encounter procedure 07/26/2025 10:00 AM EDT [facility] Neu[facility], A Department of [address] [place] [address] Lyn Banks MD [address] [place] [address], [address] [place] [address] [facility] Neurology, A Department of [facility] Start: 07-17-2025 [facility] Start: 07-08-2025 [facility] Start: 06-29-2025 [facility] Start: 06-28-2025 Hospital admission [facility] Start: 06-28-2025 Referral to clinical power plant operations manager [facility] Start: 06-19-2025 COVID-19 Vaccine ( season) COVID-19 Vaccine ( season) [facility] Start: 06-19-2025 Influenza vaccination Influenza Vacc ine [facility] Start: 04-25-2025 End: 04-25-2025 Patient encounter procedure 04/25/2025 3:00 PM EDT Office Visit [facility] Neurology, A Department of [address] [place] [phone] Lyn Banks MD [address] [place] [address] [address] [place], [place] [phone] [facility] Neurology, A Department of [facility] Start: 03-29-2025 End: 03-29-2025 Patient encounter procedure [facility] Start: 03-17-2025 Adult BMI Screening Adult BMI Screen ing [facility] Start: 03-16-2025 End: 03-16-2026 US.doppler Extremity arteries - bilateral for physiologic artery study Vas art doppler lwr bilat mult lev/PVR Vascular Ultrasound Routine Encounter for abdominal aortic aneurysm (AAA) screening Open wound of left great toe, subsequent encounter Critical limb ischemia of left lower extremity with gangrene ([facility]) Expected: 03/16/2025, Expires: 03/16/2026 [facility] Work Phone: Comment on above: Expected: 03/16/2025 , Expires: 03/16/2026 Start: 03-16-2025 End: 03-16-2025 Patient encounter procedure [facility] Start: 03-14-2025 End: 03-14-2026 CT Head WO contrast CT brain without contrast Imaging Routine Cerebellar dysmetria Expected: 03/14/2025, Expires: 03/14/2026 [facility] Comment on above: Expected: 03/14/2025 , Expires: 03/14/2026 Start: 03-14-2025 End: 03-14-2026 RF videography Hypopharynx and Esophagus Views Fluoroscopy swallow motility function Imaging Routine Dysphagia, unspecified type Globus sensation Expected: 03/14/2025, Expires: 03/14/2026 [employer] Work Phone: Comment on above: Expected: 03/14/2025 , Expires: 03/14/2026 Start: 01-27-2025 Adult BMI Screening Adult BMI Screen ing [facility] Start: 01-27-2025 Tobacco Screening Tobacco Screening [facility] Start: 01-27-2025 End: 07-29-2025 US.doppler Aorta and Iliac artery - bilateral Vas aorta/iliac duplex complete Vascular Ultrasound Routine Encounter for screening for abdominal aortic aneurysm (AAA) in patient 50 years of age or older with history of smoking Abdominal aortic aneurysm dissection ([facility]) Expected: 01/27/2025 (Approximate), Expires: 07/29/2025 [employer] Work Phone: Comment on above: Expected: 01/27/2025 (Approximate), Expires: 07/29/2025 Start: 01-23-2025 Diabetes screen Diabetes screen [facility] Start: 12-13-2024 Urine culture [facility] Start: 12-13-2024 Bacteria identified in Urine by Culture Urine Culture [facility] Start: 11-16-2024 Depression Screening Depression Scre ening [facility] Start: 11-16-2024 Tobacco Screening Tobacco Screening [facility] Start: 09-06-2024 End: 09-06-2024 Telemedicine consultation with patient 09/06/2024 12:30 PM EST Telemedicine [facility] [address] [place] [phone] Samira Bowden MD [address] [place] [address], [address], [address], [address] [place] [address] [facility] Start: 08-23-2024 End: 08-23-2024 Patient encounter procedure 08/23/2024 11:30 AM EST Office Visit [facility] [address] [place] [phone] Samira Bowden MD [address] [facility], [address], [address], [address] [place] [address] [facility] Start: 07-02-2024 Adult BMI Screening Adult BMI Screen ing [facility] Start: 07-02-2024 Tobacco Screening Tobacco Screening [facility] Start: 06-19-2024 COVID-19 Vaccine ( season) COVID-19 Vaccine () [facility] Start: 06-19-2024 COVID-19 Vaccine () COVID-19 Vaccine () [facility] Start: 06-19-2024 Influenza vaccination Influenza Vacc ine [facility] Start: 04-26-2024 ambulatory Ambulatory Facility:[facility] Start: 03-17-2024 End: 03-17-2024 Patient encounter procedure 03/17/2024 11:30 AM EDT Office Visit [facility] [address] [place] [address] Heidy Marin MD [address], [address] [address] [facility] Start: 02-25-2024 End: 02-25-2024 Patient encounter procedure 02/25/2024 8:40 AM EDT Office Visit [facility] [address] [place] [address] Heidy Marin MD [address], [address] [address] [facility] Start: 02-11-2024 [facility] Start: 01-28-2024 End: 01-27-2025 US.doppler Extremity arteries - bilateral for physiologic artery study Vas art doppler lwr bilat mult lev/PVR Vascular Ultrasound Routine Critical limb ischemia of both lower extremities with gangrene ([facility]) Expected: 01/28/2024, Expires: 01/27/2025 [facility] Comment on above: Expected: 01/28/2024 , Expires: 01/27/2025 Start: 01-28-2024 End: 01-28-2024 Patient encounter procedure 01/28/2024 9:20 AM EDT Office Visit [facility] [address] [place] [address] Heidy Marin MD [address], [address] [address] [facility] Start: 01-14-2024 End: 01-14-2024 Patient encounter procedure 01/14/2024 9:50 AM EDT Office Visit [facility] [address] [place] [address] Sergio Anguiano MD [address], [address] [address] [facility] Start: 11-29-2023 Hepatitis B surface antibody level LDL CHOLESTEROL [facility] Start: 11-16-2023 End: 11-16-2023 Patient encounter procedure 11/16/2023 1:00 PM EST Office Visit [facility] [address] [place] [phone] Reena Cervantes, 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-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 [address] [place] [address] [facility] Start: 2023 Fall Risk Screening Fall Risk Screen ing [facility] Start: 2023 PNEUMOCOCCAL (3 - PP SV23 if available, else PCV20) PNEUMOCOCCAL (3 - PPSV23 if available, else PCV20) [facility] Start: 2023 PNEUMOCOCCAL (3 - PP SV23 or PCV20) PNEUMOCOCCAL (3 - PPSV23 or PCV20) [facility] Start: 2023 Pneumococcal 0-64 ye ars Vaccine (3 - PPSV23 or PCV20) Pneumococcal 0-64 years Vaccine (3 - PPSV23 or PCV20) [facility] Start: 08-11-2023 Adult BMI Follow Up Plan Adult BMI F ollow Up Plan [facility] Start: 08-11-2023 Depression Screening Depression Scre ening [facility] Start: 06-19-2023 COVID-19 Vaccine ( season) COVID-19 Vaccine () [facility] Start: 06-19-2023 Influenza vaccination [facility] Start: 10-19-2022 DEPRESSION ASSESSMENT DEPRESSION ASS ESSMENT [facility] Start: 01-01-2022 COVID-19 VACCINE (5 - Booster for Moderna series) COVID-19 VACCINE (5 - Booster for Moderna series) [facility] Start: 01-01-2022 COVID-19 VACCINE (6 - Moderna series) COVID-19 VACCINE (6 - Moderna series) [facility] Start: 10-25-2021 Adult depression screening assessment DEPRESSION SCREENING [facility] Start: 10-24-2021 FUV, Provider: Ren Watson, Status: Pen, Time: 10:10 AM FUV, Provider: Ren Watson, Status: Pen, Time: 10:10 AM [facility] [address] [place] Work Phone: Start: 09-05-2021 STRESS NUC, Provider : BRIGITTE SANTIZOI NUCLEAR [id number], Status: Pen, Time: 12:00 PM STRESS NUC, Provider: BRIGITTE SANTIZOI NUCLEAR [id number], Status: Pen, Time: 12:00 PM [facility] Work Phone: Start: 10-25-2020 Hemoglobin A1c/Hemoglobin.total in Blood HBA1C [facility] Start: 08-10-2020 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 VISIT ANNUAL PCP TEAM CHRONIC DISEASE VISIT [facility] Start: 03-16-2019 Administration of varicella zoster vaccine Zoster (Shingles) Vaccine (2 of 2) [facility] Start: 03-16-2019 Shingles vaccine (2 of 2) Shingles vaccine (2 of 2) [facility] Start: 03-16-2019 SHINGRIX VACCINE (2 of 2) SHINGRIX VACCINE (2 of 2) [facility] Start: 04-27-2018 3 comp foot exam completed DIABETIC FOOT EXAM [facility] Start: 2013 Influenza vaccination LUNG CANCER [facility] Start: 2013 PROSTATE CANCER SCREENING DISCUSSION PROSTATE CANCER SCREENING DISCUSSION [facility] Start: 2008 Influenza vaccination LUNG CANCER [facility] Start: 2008 Screening for malign ant neoplasm of lung Low dose CT lung screening [facility] Start: 2003 COLOGUARD (FIT-DNA) COLOGUARD (FIT-D NA) [facility] Start: [address] COLONOGRAPHY [facility] Start: 2003 FECAL OCCULT BLOOD FECAL OCCULT BLOO D [facility] Start: 2003 Screening for malign ant neoplasm of colon [facility] Start: 2003 SIGMOIDOSCOPY SIGMOIDOSCOPY [facility] Start: 1988 Zoledronic acid therapy ALPHA- 1 ANTITRYPSIN DEFICIENCY SCREENING [facility] Start: 1976 Adult BMI Follow Up Plan Adult BMI F ollow Up Plan [facility] Start: 1976 BP CONTROLLED (<130/80) BP CONTROLLE D (<130/80) [facility] Start: 1976 Diabetic foot examination Diabetic Foot Exam [facility] Start: 1976 Hepatitis B surface antibody level LDL CHOLESTEROL [facility] Start: 1976 HEPATITIS C SCREENING HEPATITIS C [facility] Start: 1976 Hepatitis C screening Hepatitis C [facility] Start: 1976 HIV SCREENING HIV SCREENING [facility] Start: 1976 SPIROMETRY SPIROMETRY [facility] Start: 1973 HIV screening HIV screen [facility] Start: 1970 Depression Screen Depression Screen [facility] Start: 1968 Hepatitis B screening URINE AL BUMIN:CREATININE RATIO [facility] Start: 1968 Hepatitis C antibody , confirmatory test DILATED RETINAL EXAM [facility] Start: 1968 Lipid panel Lipids [facility] Start: 1958 Annual Wellness Visi t (AWV) Annual Wellness Visit (AWV) [facility] Start: 1958 Glaucoma screening Diabetic Op hthalmology Exam [employer] Start: 1958 Medicare Annual Well ness Visit Medicare [facility] Start: 1958 Statin Use: Cardiovascular Statin Use: Cardiovascular [employer] Start: 1958 Statin Use: Diabetic Statin Use: Melly betic [facility] Start: 1958 Tobacco Counseling [facility]in g [facility] [employer] [facility] Comprehensive metabo lic 2000 panel - Serum or Plasma [facility] CT Abdomen and Pelvi s W contrast IV [facility] End: 08-23-2025 EMG With NCV EMG With NCV Neurology Routine Spinal stenosis of lumbar region with neurogenic claudication 1 Occurrences starting 08/23/2024 until 08/23/2025 [employer] Work Phone: Comment on above: 1 Occurrences starti ng 08/23/2024 until 08/23/2025 Glucose [Mass/volume ] in Serum or Plasma [facility] [employer] Work Phone: Comment on above: 4X Daily (AC & HS) u ntil discontinued starting 02/11/2022, 27 completed As Needed until disc ontinued starting 02/11/2022 Glucose measurement estimated from glycated hemoglobin [facility] Hemoglobin A1c/Hemoglobin.total in Blood [facility] Home BIPAP or CPAP Home BIPAP or CPAP Respiratory Care Routine QHS until discontinued starting 02/16/2022 [employer] Phone: Comment on above: QHS until discontinu ed starting 02/16/2022 Oxygen therapy [Mini [facility] Data Set] Initiate Oxygen Therapy Protocol Respiratory Care Routine As Needed until discontinued starting 02/07/2022 [email or web address] Phone: Comment on above: As Needed until disc ontinued starting 02/07/2022 Patient Education [facility] Work Phone: Patient referral [facility] Work Phone: [facility] Immunizations Immunization Date Immunization Notes Care Provider Fa naresh 11-21-2024 influenza, high dose seasonal, preservative-free Ellen Kuns DO Work Phone: [facility] 11-21-2024 influenza virus vaccine, unspecified formulation Lyn Banks MD Work Phone: [employer] 11-10-2023 influenza, high dose seasonal, preservative-free Ellen Kuns Other [facility] 11-10-2023 influenza virus vaccine, unspecified formulation [facility] 10-21-2022 pneumococcal conjuga te vaccine, 13 valent Fidel IBARRA [facility] 09-18-2022 influenza virus vaccine, unspecified formulation Fidel IBARRA [facility] 09-02-2022 influenza, injectabl e, quadrivalent, contains preservative Ellen Kuns Other [facility] 09-02-2022 influenza virus vaccine, unspecified formulation Fidelmunir IBARRA [facility] 09-02-2022 influenza, injectabl e, quadrivalent, preservative free [facility] 11-06-2021 COVID-19, Moderna, 100mcg/0.5ml [facility] 10-15-2021 influenza virus vaccine, unspecified formulation Fidel IBARRA [facility] 10-15-2021 Influenza, injectabl e, [place] [place] Canine Kidney, preservative free, quadrivalent Ellen R Leyda Work Phone: [facility] 10-15-2021 Moderna COVID-19 Vaccine 100 MCG/0.5ML Intramuscular Suspension Ellen R Kuns Work Phone: [facility] 01-30-2021 COVID-19, Moderna, 100mcg/0.5ml [facility] [employer] 01-09-2021 COVID-19 Vaccine Moderna - Documentation Purposes Only Ellen Kuns Other [facility] 01-02-2021 COVID-19, Moderna, 100mcg/0.5ml [employer] 12-13-2020 COVID-19 Vaccine Moderna - Documentation Purposes Only Ellen Kuns Other [facility] 07-17-2020 influenza virus vaccine, unspecified formulation Fidel IBARRA [facility] 07-17-2020 influenza, injectabl e, quadrivalent, contains preservative Ellen Kuns Other [facility] 07-17-2020 influenza, injectabl e, quadrivalent, preservative free [facility] 04-12-2020 Toradol per 15 mg Ellen Kuns Other [employer] Other 08-24-2019 influenza virus vaccine, unspecified formulation Fidel IBARRA [facility] 08-24-2019 influenza, high dose seasonal, preservative-free Ellen Kuns Other [facility] 01-19-2019 zoster vaccine recombinant Ellen Kuns Other [facility] 01-19-2019 zoster vaccine, unspecified formulation Samira Bowden MD Work Phone: [employer] 11-15-2018 pneumococcal conjuga te vaccine, 13 valent Phani Henderson MD Work Phone: [facility] 11-15-2018 tetanus toxoid, redu whitney diphtheria toxoid, and acellular pertussis vaccine, adsorbed Phani Henderson MD Work Phone: [facility] 07-07-2018 influenza virus vaccine, unspecified formulation Fidel IBARRA [facility] 07-07-2018 influenza, injectabl e, quadrivalent, contains preservative Ellen Kuns Other [facility] 07-07-2018 influenza, injectabl e, quadrivalent, preservative free [facility] 05-06-2018 Toradol per 15 mg Ellen Kuns Other [employer] Other 10-03-2017 Toradol per 15 mg Ellen Kuns Other [employer] Other 09-17-2017 Toradol per 15 mg Ellen Kuns Other [employer] Other 07-01-2017 influenza virus vaccine, unspecified formulation Fidel IBARRA [facility] 07-01-2017 influenza, injectabl e, quadrivalent, preservative free Ellen R Kuns Work Phone: [facility] 03-24-2017 Toradol per 15 mg Ellen Kuns Other [facility] Other 01-29-2017 Toradol per 15 mg Ellen Kuns Other [facility] Other 12-25-2016 Toradol per 15 mg Ellen Kuns Other [facility] Other 08-12-2016 influenza virus vaccine, unspecified formulation Fidel IBARRA [facility] 08-12-2016 influenza, high dose seasonal, preservative-free Ellen R Kuns Work Phone: [facility] 08-12-2016 influenza, injectabl e, quadrivalent, preservative free [facility] 08-12-2016 Toradol per 15 mg Ellen Kuns Other [employer] Other 08-12-2016 influenza, injectabl e, quadrivalent, contains preservative Ellen Kuns Other [facility] Other 01-17-2016 Toradol per 15 mg Ellen Kuns Other [facility] Other 10-22-2015 tetanus toxoid, redu whitney diphtheria toxoid, and acellular pertussis vaccine, adsorbed Ellen Kuns Other [facility] 10-22-2015 Toradol per 15 mg Ellen Kuns Other [facility] Other 07-23-2015 influenza virus vaccine, unspecified formulation Fidel IBARRA [facility] 07-23-2015 influenza, injectabl e, quadrivalent, preservative free Ellen R Kuns Work Phone: [facility] 07-23-2015 influenza, injectabl e, quadrivalent, contains preservative Ellen Kuns Other [facility] Other 10-26-2014 influenza, injectabl e, quadrivalent, preservative free [facility] 10-26-2014 Toradol per 15 mg Ellen Kuns Other [facility] Other 10-26-2014 influenza, injectabl e, quadrivalent, contains preservative Ellen Kuns Other [facility] Other 07-11-2014 Toradol per 15 mg Ellen Kuns Other [facility] Other 06-27-2014 Toradol per 15 mg Ellen Kuns Other [facility] Other 04-20-2014 Toradol per 15 mg Ellen Kuns Other [facility] Other 01-18-2013 Toradol per 15 mg Ellen Kuns Other [facility] Other 09-15-2012 influenza virus vaccine, split virus (incl. purified surface antigen) Ellen Kuns Other [facility] Other 09-15-2012 influenza virus vaccine, unspecified formulation [facility] 07-15-2010 influenza virus vaccine, unspecified formulation Phani Henderson MD Work Phone: [facility] 08-24-2009 novel [id number], preservative-free, injectable Ellen R Kuns Work Phone: [facility] 08-16-2002 hepatitis B vaccine, adult dosage Ellen R Kuns Work Phone: [facility] 01-27-2002 hepatitis B vaccine, adult dosage Ellen R Kuns Work Phone: [facility] 08-13-1995 pneumococcal polysaccharide vaccine, 23 valent Ellen Kuns Other [facility] Payers Date Payer Category Payer Self-pay [id number] 2023 Commercial Indemnity [facility] [id number] 2023 Private Health Insurance [id number] 2023 Unknown [id number] 2021 Medicare AETNA MEDICARE A ETNA MEDICARE HMO [id number] 2021-Present [phone] [address] [place] [address] [facility] [id number] 2019 Medicare [id number]. [id number]. [id number] 2004 Unknown 1959 Medicare [id number] 2.16.840.1.114784.3.441 1959 Medicare [id number] 1959 Unknown [id number] 1958 Unknown [id number] 2.16.840.1.883104.3.579.2. 93 1958 Unknown [id number] 2.16.840.1.433200.3.579.2. 93 1958 Unknown [id number] 2.16.840.1.310890.3.579.2. 93 1958 Unknown [id number] 2.16.840.1.983309.3.579.2. 593 1958 Unknown [id number] 2.16.840.1.986942.3.579.2. 593 1958 Unknown [id number] 2.16.840.1.402438.3.579.2. 593 1958 Unknown [id number] 2.16.840.1.455014.3.579.2. 593 1958 Unknown [id number] 2.16.840.1.571013.3.579.2. 593 1958 Unknown [id number] 2.16.840.1.830580.3.579.2. 727 1958 Unknown [id number] 2.16.840.1.450033.3.579.2. 72 1958 Unknown [id number] 2.16.840.1.479465.3.579.2. 72 1958 Unknown [id number] 2.16.840.1.239313.3.579.2 72 1958 Unknown [id number] 2.16.840.1.327885.3.579.2 72 1958 Unknown [id number] 2.16.840.1.727705.3.579.2. 72 1958 Unknown [id number] 2.16.840.1.770445.3.579.2. 72 1958 Unknown [id number] 2.16.840.1.284080.3.579.2 72 1958 Unknown [id number] 2.16.840.1.086219.3.579.2. 72 1958 Unknown [id number] 2.16.840.1.760063.3.579.2. 72 1958 Unknown [id number] 2.16.840.1.825056.3.579.2. 72 1958 Unknown [id number] 2.16.840.1.819507.3.579.2. 72 1958 Unknown [id number] 2.16.840.1.546579.3.579.2. 72 1958 Unknown [id number] 2.16.840.1.478694.3.579.2. 727 1958 Unknown [id number] 2.16.840.1.685451.3.579.2. 72 1958 Unknown [id number] 2.16.840.1.769375.3.579.2. 1958 Unknown [id number] 2.16.840.1.456453.3.579.2. 1958 Unknown [id number] 2.16.840.1.697308.3.579.2. 1958 Unknown [id number] 2.16.840.1.727127.3.579.2 1958 Unknown [id number] 2.16.840.1.342964.3.579.2 1958 Unknown [id number] 2.16.840.1.994274.3.579.2 1958 Unknown [id number] 2.16.840.1.365356.3.579.2 1958 Unknown [id number] 2.16.840.1.046350.3.579.2 1958 Unknown [id number] 2.16.840.1.313799.3.579.2 1958 Unknown [id number] 2.16.840.1.281441.3.579.2 1958 Unknown [id number] 2.16.840.1.573345.3.579.2 1958 Unknown [id number] 2.16.840.1.839443.3.579.2 1958 Unknown [id number] 2.16.840.1.341085.3.579.2. 1958 Unknown [id number] 2.16.840.1.988422.3.579.2 1958 Unknown [id number] 2.16.840.1.385877.3.579.2. 727 1958 Unknown [id number] 2.16.840.1.764687.3.579.2. 727 1958 Unknown [id number] 2.16.840.1.578462.3.579.2. 727 1958 Unknown [id number] 2.16.840.1.362581.3.579.2. 727 1958 Unknown [id number] 2.16.840.1.248948.3.579.2. 727 1958 Unknown [id number] 2.16.840.1.982088.3.579.2. 72 1958 Unknown [id number] 2.16.840.1.707250.3.579.2. 72 1958 Unknown [id number] 2.16.840.1.002781.3.579.2. 727 1958 Unknown [id number] 2.16.840.1.351983.3.579.2. 727 1958 Unknown [id number] 2.16.840.1.137361.3.579.2. 1286 1958 Unknown [id number] 2.16.840.1.798021.3.579.2. 1286 1958 Unknown [id number] 2.16.840.1.959194.3.579.2. 1286 1958 Unknown [id number] 2.16.840.1.828960.3.579.2. 1286 1958 Unknown [id number] 2.16.840.1.826456.3.579.2. 1286 1958 Unknown [id number] 2.16.840.1.928456.3.579.2. 727 1958 Unknown [id number] 2.16.840.1.565685.3.579.2. 727 1958 Unknown [id number] 2.16.840.1.787008.3.579.2. 727 1958 Unknown [id number] 2.16.840.1.040667.3.579.2. 727 1958 Unknown [id number] 2.16.840.1.984096.3.579.2. 727 1958 Unknown [id number] 2.16.840.1.702525.3.579.2. 727 1958 Unknown [id number] 2.16.840.1.481850.3.579.2. 72 1958 Unknown [id number] 2.16.840.1.482055.3.579.2. 72 1958 Unknown [id number] 2.16.840.1.707290.3.579.2. 727 1958 Unknown [id number] 2.16.840.1.217244.3.579.2. 727 1958 Unknown [id number] 2.16.840.1.153929.3.579.2. 72 Unknown [facility] [id number] Unknown [id number] 2.16840.1.418889.3.579.2. 531 Unknown [id number] 2.16840.1.011467.3.579.2. 531 Unknown [id number] 2.16840.1.307981.3.579.2. 531 Unknown [id number] 2.16840.1.324193.3.579.2. 531 Unknown [id number] 2.16.840.1.034123.3.579.2. 531 Social History Date Type Detail Facility Start: 04-15-2017 End: 11-08-2020 No alcohol use No alcohol use [facility] Comment on above: Coffee 3 cups daily; 6 ciggs daily; Start: End: 07-13-2025 Smoker Randi Sidman [employer] Start: 04-15-2017 End: 01-28-2024 Tobacco smoking status NHIS Smokes tobacco daily [facility] Start: 12-07-1982 History of tobacco use Cigarette Smo ker [facility] Start: 04-15-2017 End: 03-16-2025 Tobacco use and exposure Smokeless tobacco non-user [facility] Start: 05-29-2020 End: 10-10-2021 Alcohol intake Current non-drinker of alcohol (finding) [facility] Start: 05-04-2020 End: 11-25-2022 History SDOH Financial 4 [facility] Start: 05-04-2020 End: 11-25-2022 History SDOH Food Worry 1 [facility] Start: 05-04-2020 End: 11-25-2022 History SDOH Transport Med 2 [facility] Start: 06-21-2020 Tobacco Comment currently 8 ci garettes a day [facility] Start: 1960 Sex Assigned At Not on file [facility] Start: 05-22-2020 End: 02-07-2022 Exposure to SARS-CoV-2 (event) Not sure [facility] Start: 02-09-2022 Alcohol intake Lifetime non-d margarita (finding) [employer] Work Phone: Start: 05-12-2019 End: 11-08-2020 Sex Assigned At [facility] Start: 01-16-2023 End: 06-29-2025 Tobacco smoking status Ex-smoker (finding) [facility] Tobacco smoking status Never [facility] How hard is it for y ou to pay for the very basics like food, housing, medical care, and heating Not very hard [facility] (I/We) worried heriberto er (my/our) food would run out before (I/we) got money to buy more. Never true [facility] Start: 04-24-2020 Tobacco Comment currently 1/2 pack day since 01/2020 [facility] Start: 05-05-2020 End: 06-04-2020 Exposure to SARS-CoV-2 (event) Unable to assess [facility] Start: 1960 Sex Assigned At Male F [facility] History of tobacco use Current smoker [employer] Start: 08-23-2024 End: 03-16-2025 Alcoholic beverage intake [facility] Start: 02-03-2021 End: 01-28-2024 Tobacco Comment [facility] day [facility] Start: 01-30-2010 End: 11-08-2020 Sex [facility] (finding) [facility] Tobacco smoking stat us NHIS Tobacco smoking consumption unknown [facility] Sexual Orientation [facility] Medical Equipment Procedure Code Equipment Code Equipment Origin al Text Equipment Identifier Dates Restrictor 24mm Medium Evans Cement Revision Plug Hip - [id number] Start: 04-27-2017 Cement Simplex P Tobramycin Bone Full Dose Radiopaque Preblend Sterile - [id number] Start: 04-27-2017 Restrictor 30mm Large Evans Cement Revision Plug Hip - [id number] Start: 04-27-2017 Cement Simplex P Speedset Bone Radiopaque Sterile - [id number] Start: 12-29-2017 Vxn-Oh-V-Kind Implant - [id number] Start: 06-05-2016 Comment on above: Description: PEDRO C ORP. N300 LEAD ANCHOR KIT Head Global Unit e 52mm Standard 18mm Humeral - [id number] Start: 12-29-2017 Nevro Surgical L ead Kit [id number] Start: 03-16-2018 Head V40 28mm -2 .7mm Offset Taper Biolox Delta Femoral Hip - [id number] Start: 11-08-2019 Liner 46mm F Dylon r Acetabular Modular Dual Mobility Primary Hip - [id number] Start: 11-08-2019 Insert Adm Mobil e Bearing Hip Shinto 52mm 28mm 0d X3 8.9mm Acetabular - [id number] Start: 11-08-2019 Insert Adm Mobil e Bearing Hip Shinto 52mm 28mm 0d X3 8.9mm Acetabular - [id number] Start: 05-03-2020 Head V40 28mm +4 mm Offset Taper Biolox Delta Femoral Hip - [id number] Start: 05-03-2020 Liner 46mm F Dylon r Acetabular Modular Dual Mobility Primary Hip - [id number] Start: 05-03-2020 Stem Triathlon 1 2mm Cocr 100mm Femoral Cemented Total Stabilized Knee - [id number] Start: 04-27-2017 Stem Triathlon 1 5mm Cocr 50mm Femoral Cemented Total Stabilize Knee - [id number] Start: 04-27-2017 Component Triath oscar 7 Cocr Femoral Total Stabilize Knee Left - [id number]_imp Start: 04-27-2017 Augment Triathlo n 7 5mm Femoral Total Stabilize Knee Posterior - [id number] Start: 04-27-2017 Augment Triathlo n 7 5mm Femoral Total Stabilize Knee Left - [id number]_imp Start: 04-27-2017 Augment Triathlo n 7 5mm Femoral Total Stabilize Knee Left - [id number]_imp Start: 04-27-2017 Augment Triathlo n 6 10mm Tibial Total Stabilize Right Medial Left Lateral - [id number]_imp Start: 04-27-2017 Baseplate Triath oscar 6 Evans Cocr Tibial Total Stabilize Cemented Knee - [id number]_imp Start: 04-27-2017 Augment Triathlo n 6 10mm Tibial Total Stabilize Left Medial Right Lateral - [id number]_imp Start: 04-27-2017 Insert Triathlon 6 X3 16mm Tibial Total Stabilize Plus Knee - [id number]_imp Start: 04-27-2017 Component Triath oscar 7 Pa Femoral Cruciate Retain Bead Knee Right - [id number]_imp Start: 07-01-2017 Insert Triathlon 6 X3 13mm Tibial Condylar Stabilized Knee - [id number] Start: 07-01-2017 Baseplate Triath oscar 6 Tritanium [id number] Tibial 4 Cruciform Peg Keel Knee - [id number]_imp Start: 07-01-2017 Component Tritan ium 35mm Metal 10mm Patellar Asymmetric Knee - [id number]_imp Start: 07-01-2017 Component Triath oscar 35mm 10mm Patellar Asymmetric Knee - [id number]_imp Start: 04-27-2017 Head 48mm 7mm Humeral [place] Peg Left Glenoid - [id number] Start: 12-29-2017 Stem Global Ap 1 2mm Porocoat 137mm Humeral Arthroplasty System Shoulder - [id number]_imp Start: 12-29-2017 Assembly Global Ap 135d Taper Fix Shoulder Arthroplasty System - [id number]_imp Start: 12-29-2017 Augment Triath T ib [facility] Sz A - [id number]_imp Start: 04-27-2017 Stem Accolade Ii 7 127d Femoral - [id number] 1897965_imp Start: 11-08-2019 Shell Trident Ii 56mm F Tritanium Acetabular 5 Screw Hole Cluster Sterile - [id number]_imp Start: 11-08-2019 Stem Accolade Ii 7 127d Femoral - [id number] Start: 05-03-2020 Shell Trident Ii 56mm F Tritanium Acetabular 5 Screw Hole Cluster Sterile - [id number]_imp Start: 05-03-2020 Lead 50cm Nevro - [id number] Start: 05-08-2016 Comment on above: Description: 50 Lead 50cm Nevro - [id number]_imp Start: 06-05-2016 Comment on above: Description: NEVRO B LUE PERC LEAD KIT Lead 50cm Nevro - [id number]_imp Start: 06-05-2016 Comment on above: Description: NEVRO B LUE PERC LEAD KIT Gnrtr Nrstm Ipg Kit Nevro - [id number] Start: 06-05-2016 Comment on above: Description: NEVRO N IPG KIT Screw Spinal Streamline 7.5x55mm - [id number] Start: 02-07-2022 Set Scr Spnl Ti Streamline - [id number] Start: 02-07-2022 Screw Spnl L45mm Dia7.5mm Thorlum Ti Ally Polyax Streamline - [id number]_imp Start: 02-07-2022 Screw Spnl L50mm Dia7.5mm Thorlum Ti Ally Polyax Streamline - [id number]_imp Start: 02-07-2022 Ta Spnl L120mm [id number] Thorlum Prebent Streamline - [id number]_imp Start: 02-07-2022 Ta Spnl L100mm [id number] Thorlum Prebent Streamline - [id number]_imp Start: 02-07-2022 Syringe With Nee dle [...] 26 gauge x 5/8 syringe Start: 01-06-2024 End: 04-05-2025 Goals Date Patient Goal Desired Activity /State [...] Status N/A [facility] 03-15-2024 Functional Status N/A [facility] 03-20-2023 Functional Status N/A [facility] 02-20-2023 Functional Status N/A [facility] 01-30-2023 Functional Status N/A [facility] Clinical Notes 06-07-2012 to 07-13-2025 Telephone Encounter - Julianna Barnes - 07/13/2025 4:08 PM EDTTelephone Encounter - Julianna Barnes - 07/13/2025 4:08 PM EDT Note Date & Type Note Facility 07-13-2025 Miscellaneous Notes Formattin g of this note might be different from the original. Nurse contacted patient's spouse and informed her that there are refills remaining on prescription. documented in this encounter [facility] 07-13-2025 Telephone encount er Note Nurse contacted patient's spouse and informed her that there are refills remaining on prescription. [facility] 07-06-2025 Note [facility] 06-28-2025 Evaluation note Diagnosis Onset Date Resolution Autonomic dysfunction acute Sep 2024 1:44pm Chronic pain syndrome acute Sep 2024 1:44pm Chronic suprapubic catheter acute June 28, 2025 1:44pm COPD (chronic obstructive pulmonary disease) acute June 28, 2025 1:44pm Diabetes acute June 1:44pm Diabetic neuropathy associated with type 2 diabetes mellitus acute June 1:44pm DMII (diabetes mellitus, type 2) acute June 28, 2025 1:44pm GI bleed acute June 1:44pm Hyperlipidemia acute June 28, 2025 1:44pm Impaired mobility acute Septemb er 2024 1:44pm Neurogenic bladder acute Septem paulino 2024 1:44pm Neurogenic bowel acute Septembe 2024 1:44pm Obesity acute June 1:44pm Parkinsons acute June 1:44pm Recurrent UTI acute June 192024 1:44pm [facility] Work Phone: 1(395) 769-550709-10-2025 NotePhysical Therapy Cancel 06/28/25 1140 General Missed Time Reason Other (Comment) PT Assessment PT Assessment/DIRECTOR EDUCATION Summary Pt discharging within the hour, no therapy services provided. Khushbu Garcia, PTAUnProtestant Deaconess Hospital09-10-2025 NotePt state he would like to save energy for his transfer to another facility this afternoon, pt decline therapy. Check no charge.[facility]-27-2025 NoteNeurology Brief Update note - no further recommendations, will sign off, please have the patient follow up with his outpatient Neurologist in 4-6 weeksUnProtestant Deaconess Hospital 06-27-2025 NoteDischarge Planning: [employer] spoke with Lynette in admission at [facility] and faxed over updated progress notes through [facility] awaiting acceptance and be availability. [facility]09-09-2025 [facility]-09-2025 NoteUnProtestant Deaconess Hospital09-08-2025 Note [facility]-08-2025 NoteUnProtestant Deaconess Hospital09-08-2025 NoteUnProtestant Deaconess Hospital09-08-2025 Note [facility]-08-20[facility]-07-2025 Note [facility]-07-2025 NoteUnProtestant Deaconess Hospital09-07-2025 NoteS[facility]-06-2025 Note [facility]-06-2025 NoteDischarge Planning: Plan is to wean the patient off the TPN with anticipated discharge tomorrow or Thursday. [employer] left a message for [facility] to see if they can accept. Referral was made through [facility] on 06/22/25.[facility]-06-2025 NoteS[facility]09-06-2025 NoteGeneral Surgery requesting pt be weaned from TPN which is currently providing ~75% estimated needs. Tolerating FLD. Recommend decreasing rate 60->30 ml/hr x 2 hr then discontinue. Check BG POC one hour after. Consider advancing to pureed diet.[facility]09-06-2025 NoteUnProtestant Deaconess Hospital09-06-2025 NoteUnProtestant Deaconess Hospital09-05-2025 Note [facility] will not accept TPN.[facility]-05-2025 NoteUnProtestant Deaconess Hospital09-05-2025 NoteUnProtestant Deaconess Hospital09-05-2025 NoteUnProtestant Deaconess Hospital09-04-2025 Note [facility]-04-2025 NoteUnProtestant Deaconess Hospital09-04-2025 NoteUnProtestant Deaconess Hospital09-04-2025 Note [facility]-04-20[facility]-03-20[facility] NoteS[facility]-03-2025 Note [facility]-03-20[facility]-20[facility] NoteS[facility]-03-2025 Note [facility]-03-20[facility]-02-20[facility] NoteS[facility]-02-2025 Note [facility]-02-2025 NoteS[facility]-02-2025 NoteS[facility]-02-2025 Note [facility]-01-2025 NoteS[facility]-01-2025 NoteUnProtestant Deaconess Hospital09-01-2025 Note [facility]-31-2025 NoteUnProtestant Deaconess Hospital08-31-2025 NoteUnProtestant Deaconess Hospital08-30-2025 Note [facility]-30-2025 NoteUnProtestant Deaconess Hospital08-30-2025 NoteUnProtestant Deaconess Hospital08-30-2025 Note [facility]08-29-2025 NotePatient left for the OR. I started FFP prior to him leaving.[facility]08-29-2025 NoteS[facility]-28-2025 NoteUnProtestant Deaconess Hospital08-28-2025 NoteS[facility]08-28-2025 Note Peripheral IV Date/Time: 06/15/2025 4:19 PM Inserted by: Leda Pitts MD Placement Needle size: 14 G Laterality: right Location: external jugular Local anesthetic: none Site prep: alcohol Technique: anatomical landmarks Attempts: 1UnProtestant [facility]acon[facility]08-28-2025 NoteSCCI [facility]08-25-2025 [facility] 06-06-2025 Miscellaneous Notes* Telephone Encounter - Eliane Ken - 06/06/2025 9:37 AM EDT Received referral from Dr. Banks for patient to see Dr. Martin for : Chronic intractable headache, unspecified headache type Please call to schedule -established with new patient time * Telephone Encounter - Sal Frances - 06/06/2025 9:37 AM EDT Patient scheduled: 09/12/25 11:[address] Martin [facility] Telephone encounter Note* Telephone Encounter - Eliane Ken - 06/06/2025 9:37 AM EDT Received referral from Dr. Banks for patient to see Dr. Martin for : Chronic intractable headache, unspecified headache type Please call to schedule -established with new patient time [facility]08-19-2025 Telephone encounter Note* Telephone Encounter - Sal Frances - 06/06/2025 9:37 AM EDT Patient scheduled: 09/12/25 11:[address] Martin [facility]08-18-20[facility]-18-20[facility]-2025 Miscellaneous Notes* Telephone Encounter - Julianna Barnes - 04/04/2025 1:42 PM EDT Refill request : traMADoL (ULTRAM) 50 mg tablet Last Filled : 09/30/2024 Last OV : 03/14/2025 Next OV : 04/25/2025 Reviewed by RESIDENTIAL [employer]EN BUILDING DESIGNER. Pend for signature. * Telephone Encounter - Julianna Barnes - 04/04/2025 1:42 PM EDT [employer] phoned in medication to pharmacy. Patient notified. [facility]Western [facility]06-[facility]-2025 Telephone encounter Note* Telephone Encounter - Julianna Barnes - 04/04/2025 1:42 PM EDT Refill request : traMADoL (ULTRAM) 50 mg tablet Last Filled : 09/30/2024 Last OV : 03/14/2025 Next OV : 04/25/2025 Reviewed by RESIDENTIAL GREEN BUILDING DESIGNER. Pend for signature. [facility]06-17-2025 Telephone encounter Note* Telephone Encounter - Julianna Barnes - 04/04/2025 1:42 PM EDT Salesperson [employer] phoned in medication to pharmacy. Patient notified. [facility]05-29-2025 Evaluation + Plan note* Assessment & Plan Note - Heidy Marin MD - 03/16/2025 11:16 AM EDTAssociated Problem(s): Open wound of left great toe PVR with toe pressure [facility]05-29-2025 Evaluation + Plan note* Assessment & Plan Note - Heidy Marin MD - 03/16/2025 11:16 AM EDTAssociated Problem(s): Encounter for abdominal aortic aneurysm (AAA) screening No abdominal aortic aneurysms on screening duplex ultrasound. [facility]05-29-2025 Miscellaneous Notes* Assessment & Plan Note - Heidy Marin MD - 03/16/2025 11:16 AM EDTAssociated Problem(s): Open wound of left great toe PVR with toe pressure * Assessment & Plan Note - Heidy Marin MD - 03/16/2025 11:16 AM EDT Associated Problem(s): Encounter for abdominal aortic aneurysm (AAA) screening No abdominal aortic aneurysms on screening duplex ultrasound. documented in this encounterWestern Reserve Hospital05-29-2025 History of Present illness Narrative* Heidy Marin MD - 03/16/2025 9:10 AM EDT Images from the original note [...] DOSE. TAKE ALONG WITH SINEMET CR. 180 [id number] diclofenac (VOLTAREN) 75 mg EC tablet Take [...] once as needed for migrainefor up to 180 doses. May repeat in [...] Past Medical History: Diagnosis Date Diabetes mellitus ([facility]) Diabetes mellitus type 2, controlled ([facility]) HL (hearing loss) Hypertension Kidney stones Migraine Parkinson's disease ([facility]) Spinal stenosis Past Surgical History: Past Surgical [...] Resource Strain: Low Risk (11/25/2022) Received from [facility] Overall Financial Resource Strain (CARDIA) Difficulty of Paying Living Expenses: Not very hard Food Insecurity: No Food Insecurity (03/16/2025) Hunger Screening Food Insecurity - Worry: Never True Food Insecurity - Inability: Never True Transportation Needs: No Transportation Needs (11/25/2022) Received from [facility] PRAPARE - Transportation Lack of Transportation (Medical): No Lack of Transportation (Non-Medical): No Physical Activity: Not on file Stress: Not on file Social Connections: Not on file Interpersonal Safety: Not on file Housing Instability: Low Risk (11/25/2022) Received from [facility] Housing Stability Vital Sign Unable to Pay [...] you for your understanding. documented in this encounterParkview Health Bryan HospitalKindred Biosciences [facility] Psychiatric [id number] History of Present illness Narrative* Lyn Banks MD - 03/14/2025 3:00 PM EDT Images from the original note were not included. [address] [facility] [address] Patient: Alisia Correa Sr. Date of : [...] at that clinic however. He still takes bothmidodrine 15mg/10mg/10mg/10mg and florinef 0.1-0.2mg daily. He does check BPs at home and they varyfrom low 88/39 to as high as 185/112. Did not bring BP log today. He uses motorized chair due to hypotension issues. He states BP fluctuations started after starting sinemet. Sinemet is very helpful f or his tremor. He has a history of migraines since 2022 after a fall with head injury and LOC. Migraines are bad as well. He notes associated nausea/vomiting, photophobia, feels his tongue is thick. Headache is bifrontal 10/10. These headaches occur 2- 3 times per week and last all day. [...] sense when he needs to have a bowelmovement. Drooling: occasional Diaphoresis: denies ADL: Intact IADL: [...] let yourself or your family down 3 21 Trouble concentrating on things, such as reading [...] 14 2 PTSD: No data to display Runnells: No data to display TONIA-10: No data to display Past Medical, Family, Surgical, and Social History Update: The following portions of the patient's history were reviewed and updated as appropriate: allergies, current medications, past family history, past medical history, past social history, past surgicalhistory and problem list. Past Medical History: Diagnosis Date Diabetes mellitus ([facility]) Diabetes mellitus type 2, controlled ([facility]) HL (hearing loss) Hypertension Kidney stones Migraine Parkinson's disease ([facility]) Spinal stenosis No family history on file. [...] DOSE. TAKE ALONG WITH SINEMET CR. 180 [id number] diclofenac (VOLTAREN) 75 mg EC tablet Take [...] once as needed for migrainefor up to 180 doses. May repeat in [...] started very early in the course for typicalPD. Multiple System Atrophy is a strong consideration given severe, early onset dysautonomia and cerebellar features on exam, however he reports a strong levodopa response. Diabetic dysautonomia alsopossible. He also has right arm weakness, out [...] procedures Referring and communicating with other health child day care provider (not separately reported) Documenting clinical information in [...] you for your understanding. documented in this encounterWestern Reserve Hospital05-27-2025 Instructions* Patient Instructions* Lyn Banks MD - 03/14/2025 3:00 PM EDT Wear thigh high compression socks 20mmHg during the day, remove for bed time. Swallow study. Call to schedule appointment with Dr. Espinoza at [facility] (dysautonomia specialist). Magnesium citrate solution- drink 1 [...] and 6pm. CT head documented in this encounterWestern Reserve Hospital04-30-2025 Radiology Diagnostic [facility] [place] [address] CT Scan Report Signed Patient: Alisia Correa SR MR#: [id number] : 1960 Acct:[id number] Age/Sex: 64 / M ADM Date: 5 Loc: CT Room: Type: [facility] Attending Dr: Romel Leonardo MD Copies to: Romel Leonardo MD~ Ordering Provider: Romel Leonardo MD Date of Service: 02/15/25 CT/CT abdomen pelvis wo con: eval for nephrolithiasisor bladder stones CT ABDOMEN AND PELVIS WITHOUT INTRAVENOUS CONTRAST: CLINICAL HISTORY: Recurrent UTIs. COMPARISON: CT abdomen and pelvis 06/22/2024 TECHNIQUE: Spiral images were obtained through the abdomen and pelvis without intravenous contrast.This CT exam was performed using one or [...] obstructive uropathy. Abdominal aorta appears normal in pratik paulino. GI: Stomach demonstrates postoperative changes. Small bowel appears nondilated. Appendix is normal.No acute colonic abnormality.[ Pelvis:[Suboptimal evaluation due to [...] consolidative changes involving the left lung base. Developingpneumonia cannot BE excluded. Impression dictated by: Steven Shah Jr., D.O. 02/15/2025 3:42 PM Dictation Location: [place] [address] Transcribed By: [facility] 02/15/25 1542 Dictated By: Steven Shah Jr, DO 02/15/25 1538 Signed By: 02/15/25 1542 [facility]03-13-2025 Evaluation note* Diagnosis Onset Date Resolution Status Admit Date Depression acute December 29 1:14pm Diabetes acute December 29 1:14pm Migraine acute December 29 1:14pm Parkinsons acute December 29 1:14pm Sleep apnea acute December 29, 2 025 1:14pm Suprapubic catheter acute December 29, 2024 1:14pm Chronic suprapubic catheter acute January 30, 2025 1:55pm Parkinsons acute January 30 1:55pm Recurrent UTI acute January 30, 2025 1:55pm [facility] Work Phone: [phone] 500-340003-11-2025 NotePatient Education Obstetrics and Gynecology Urinary Tract [...] this condition includes: ??? Antibiotic medicine. ??? Fpoj-qhg-iyelwwz medicines to treat discomfort. ??? Drinking enough [...] these instructions at home: Medicines ??? Take duga-tti-zpxqaci and prescription medicines only as told by [...] Make sure you di (more content not included)...[facility]02-10-2025 Hospital Discharge instructions Patient Education 11/28/2024 16:00:59 [...] provider. Document Revised: 05/05/2023 Document Reviewed: 05/05/2023 [employer] Patient Education 2023 Bubbli. Follow Up Care 11/25/2024 08:07:08 With:RODRI KHAN, LYN Crum, URL Address: [address] [address] When:Within 1 Month(s) [facility] 02[facility]10-2025 NotePatient Education Caregiving Antibiotic Medicine, Adult [...] ??? You have sig (more content not included)...[facility] 11-23-2024 Miscellaneous Notes* Telephone Encounter - Susie Andino RN - 11/23/2024 2:04 PM EST Contacted pt because last script was sent to pharmacy with 11 refills. Pt stated that the pharmacy didn't have any refills left. Contacted pharmacy and they stated that they did have refills left andwill fill the medication for pt. documented in this encounterWestern Reserve Hospital02-05-2025 Telephone encounter Note* Telephone Encounter - Susie Andino RN - 11/23/2024 2:04 PM EST Contacted pt because last script was sent to pharmacy with 11 refills. Pt stated that the pharmacy didn't have any refills left. Contacted pharmacy and they stated that they did have refills left andwill fill the medication for pt. [facility] [id number] Miscellaneous Notes* Telephone Encounter - Julianna Barnes - 11/19/2024 3:03 PM EST Refill request : carbidopa-levodopa (SINEMET CR) 25-100 mg per CR tablet Last Filled : 08/31/2024 240 tablets +11 refills Refill too soon. Refills remaining at the pharmacy. documented in this encounterWestern Reserve Hospital02-01-2025 Telephone encounter Note* Telephone Encounter - Julianna Barnes - 11/19/2024 3:03 PM EST Refill request : carbidopa-levodopa (SINEMET CR) 25-100 mg per CR tablet Last Filled : 08/31/2024 240 tablets +11 refills Refill too soon. Refills remaining at the pharmacy. [facility] [id number] Miscellaneous Notes* Telephone Encounter - Susie Andino RN - 10/24/2024 2:28 PM EST Verified with pharmacy that they received the midodrine script. Pharmacy is working on filling the medication. documented in this encounterWestern Reserve Hospital01-06-2025 Telephone encounter Note* Telephone Encounter - Susie Andino RN - 10/24/2024 2:28 PM EST Verified with pharmacy that they received the midodrine script. Pharmacy is working on filling the medication. [facility]12-10-2024 Hospital Discharge instructions Patient Education 09/27/2024 [...] provider. Document Revised: 12/25/2021 Document Reviewed: 09/20/2021 [employer] Patient Education 2021 Bubbli. Follow Up Care 08/30/2024 12:29:01 With:RODRI KHAN, LYN Crum, URL [facility] [address] [place] [address] When:Within 1 Month(s) [facility] 12-10-2024 NotePatient Education Urology Indwelling Urinary Catheter [...] provider. Document Revised: 12/25/2021 Document Reviewed: 09/20/2021 [employer] Patient Education ? 2021 [employer] 09-26-2024 Miscellaneous Notes* Telephone Encounter - Susie Andino RN - 09/26/2024 2:18 PM EST medication: midodrine (PROAMATINE) 5 mg tablet Last filled: 12/11/23 Last seen: 08/23/24 Next visit: Not scheduled Reviewed by RN. Pended for signature. According to office note from 08/23/24 Midodrine (Patient not taking: Reported on 08/23/2024) Please advise. documented in this encounterWestern Reserve Hospital12-09-2024 Telephone encounter Note* Telephone Encounter - Susie Andino RN - 09/26/2024 2:18 PM EST medication: midodrine (PROAMATINE) 5 mg tablet Last filled: 12/11/23 Last seen: 08/23/24 Next visit: Not scheduled Reviewed by RN. Pended for signature. According to office note from 08/23/24 Midodrine (Patient not taking: Reported on 08/23/2024) Please advise. [facility]12-08-2024 Miscellaneous Notes* Telephone Encounter - Susie Andino RN - 09/25/2024 4:07 PM EST medication: sumatriptan (IMITREX) 50 mg tablet Last filled: 05/25/24 Last seen: 08/23/24 Next visit: not scheduled Reviewed by RN. Pended for signature. documented in this encounterWestern Reserve Hospital12-08-2024 Miscellaneous Notes* Telephone Encounter - Susie Andino RN - 09/25/2024 4:07 PM EST medication: tramadol 50 mg tablet Last filled: 08/03/24 Last seen: 08/23/24 Next visit: not scheduled Reviewed by RN. Pended for signature. documented in this encounterWestern Reserve Hospital12-08-2024 Telephone encounter Note* Telephone Encounter - Susie Andino RN - 09/25/2024 4:07 PM EST medication: sumatriptan (IMITREX) 50 mg tablet Last filled: 05/25/24 Last seen: 08/23/24 Next visit: not scheduled Reviewed by RN. Pended for signature. [facility]12-08-2024 Telephone encounter Note* Telephone Encounter - Susie Andino RN - 09/25/2024 4:07 PM EST medication: tramadol 50 mg tablet Last filled: 08/03/24 Last seen: 08/23/24 Next visit: not scheduled Reviewed by RN. Pended for signature. [facility]11-11-2024 Miscellaneous Notes* Telephone Encounter - Susie Andino RN - 08/29/2024 3:42 PM EST medication: Carbidopa-levodopa (SINEMET CR) 25-100 mg per CR tablet Last filled: 08/07/23 Last seen: 08/23/24 Next visit: 09/06/24 Reviewed by RN. Pended for signature. documented in this encounterWestern Reserve Hospital11-11-2024 Telephone encounter Note* Telephone Encounter - Susie Andino RN - 08/29/2024 3:42 PM EST medication: Carbidopa-levodopa (SINEMET CR) 25-100 mg per CR tablet Last filled: 08/07/23 Last seen: 08/23/24 Next visit: 09/06/24 Reviewed by RN. Pended for signature. [facility]11-05-2024 History of Present illness Narrative* Wilber Tipton MD - 08/23/2024 11:30 AM EST Images from the original note were not included. [address] [address] Patient: Alisia Correa Sr. Date of : [...] 14 2 PTSD: No data to display Runnells: No data to display TONIA-10: No data to display Past Medical, Family, Surgical, and Social History Update: The following portions of the patient's history were reviewed and updated as appropriate: allergies, current medications, past family history, past medical history, past social history, past surgicalhistory and problem list. Past Medical History: Diagnosis Date Diabetes mellitus ([facility]) Diabetes mellitus type 2, controlled ([facility]) HL (hearing loss) Hypertension Kidney stones Migraine Parkinson's disease ([facility]) Spinal stenosis No family history on file. [...] DOSE. TAKE ALONG WITH SINEMET CR. 180 [id number] diclofenac (VOLTAREN) 75 mg EC tablet Take [...] Plan of Care: none documented in this encounterWestern Reserve Hospital10-22-2024 Hospital Discharge instructions Follow Up Care 08/09/2024 15:03:40 With:LYN MACE PA-C, URL Address: [facility] [address] [facility] [place] [address] When: Unknown [facility] 10-13-2024 Miscellaneous Notes* Telephone Encounter - Susie [...] for approval and signature documented in this encounterWestern Reserve Hospital10-13-2024 Telephone encounter Note* Telephone Encounter - Susie Andino RN - 07/31/2024 1:31 PM EDT Refill request : tramadol 50mg Last Filled : 04/13/24 Last Office Visit :11/16/23 Next Office Visit : 08/23/24 Reviewed by RN. Pend for signature. [facility]10-13-2024 Telephone encounter Note* Telephone Encounter - REGAN Morales - 07/31/2024 1:31 PM EDT Pt is schedule for follow up with Dr Bowden in August. Sending to him for approval and signature [facility]09-26-2024 Miscellaneous Notes* Telephone Encounter - Rachel Mixon CMA - 07/14/2024 1:37 PM EDT Refill request: Med: fludrocortisone (FLORINEF) 0.1 mg tablet Si tabs daily as directed Last seen:11/16/23 With Kathy Cervantes Next visit:08/23/[address] Bowden Last filled: 02/23/23 - 90 day supply with 3 refills to [facility] Pharmacy: [facility] documented in this encounterWestern Reserve Hospital09-26-2024 Telephone encounter Note* Telephone Encounter - Rachel Mixon CMA - 07/14/2024 1:37 PM EDT Refill request: Med: fludrocortisone (FLORINEF) 0.1 mg tablet Si tabs daily as directed Last seen:11/16/23 With Kathy Cervantes Next visit:08/23/[address] Bowden Last filled: 02/23/23 - 90 day supply with 3 refills to [facility]08-06-2024 Miscellaneous Notes* Telephone Encounter - Julianna Barnes - 05/24/2024 4:47 PM EDT Refill request : SUMAtriptan (IMITREX) 50 mg tablet Last Filled : 02/23/2024 Last OV : 11/16/2023 Next OV : 08/23/2024 Reviewed by RESIDENTIAL GREEN BUILDING DESIGNER. Pend for signature. documented in this encounterWestern Reserve Hospital08-06-2024 Telephone encounter Note* Telephone Encounter - Julianna Barnes - 05/24/2024 4:47 PM EDT Refill request : SUMAtriptan (IMITREX) 50 mg tablet Last Filled : 02/23/2024 Last OV : 11/16/2023 Next OV : 08/23/2024 Reviewed by RESIDENTIAL GREEN BUILDING DESIGNER. Pend for signature. [facility] [employer] [id number] Miscellaneous Notes* Telephone Encounter - Julianna Barnes - 04/11/2024 11:33 AM EDT Refill request : tramadol (Ultram) 50 mg tablet Last Filled : 11/16/2023 Last OV : 11/16/2023 Next OV : None mentioned in last OV note. The OARRS database was reviewed today and found to be appropriate. No indication of medication diversion, or non compliance. Reviewed by RESIDENTIAL GREEN BUILDING DESIGNER. Pend for signature. * Telephone Encounter - Rosa Neil - 04/11/2024 11:33 AM EDT Patient is scheduled for the following appointment: With Neurology (Samira Bowden MD) 08/23/2024 at 11:30 AM documented in this encounterWestern Reserve Hospital06-24-2024 Telephone encounter Note* Telephone Encounter - Julianna Barnes - 04/11/2024 11:33 AM EDT Refill request : tramadol (Ultram) 50 mg tablet Last Filled : 11/16/2023 Last OV : 11/16/2023 Next OV : None mentioned in last OV note. The OAS database was reviewed today and found to be appropriate. No indication of medication diversion, or non compliance. Reviewed by RESIDENTIAL GREEN BUILDING DESIGNER. Pend for signature. [facility]06-24-[facility] Telephone encounter Note* Telephone Encounter - Rosa Neil - 04/11/2024 11:33 AM EDT Patient is scheduled for the following appointment: With Neurology (Samira Bowden MD) 08/23/2024 at 11:30 AM [facility]06-10-2024 Miscellaneous Notes* Telephone Encounter - Rachel Mixon CMA - 03/28/2024 3:59 PM EDT [facility] Placed in provider's folder for signature. [employer] will return fax upon completion. documented in this encounterWestern Reserve Hospital06-10-2024 Telephone encounter Note* Telephone Encounter - Rachel Mixon CMA - 03/28/2024 3:59 PM EDT [facility]. Placed in provider's folder for signature. [employer] will return fax upon completion. [facility]05-30-2024 Evaluation + Plan note* Assessment & [...] the healing.Also recommended continue best medical therapy [facility] [employer] [id number] Miscellaneous Notes* Assessment & Plan Note - [...] continue best medical therapy documented in this encounterWestern Reserve Hospital05-30-2024 History of Present illness Narrative* Heidy Marin [...] DOSE. TAKE ALONG WITH SINEMET CR. 180 [id number] diclofenac (VOLTAREN) 75 mg EC tablet Take [...] Past Medical History: Diagnosis Date Diabetes mellitus ([facility]) Diabetes mellitus type 2, controlled ([facility]) HL (hearing loss) Hypertension Kidney stones Migraine Parkinson's disease ([facility]) Spinal stenosis Past Surgical History: Past Surgical [...] Resource Strain: Low Risk (11/25/2022) Received from [facility] Overall Financial Resource Strain (CARDIA) Difficulty of Paying Living Expenses: Not very hard Food Insecurity: No Food Insecurity (01/28/2024) Hunger Screening Food Insecurity - Worry: Never True Food Insecurity - Inability: Never True Transportation Needs: No Transportation Needs (11/25/2022) Received from [facility] PRAPARE - Transportation Lack of Transportation (Medical): No Lack of Transportation (Non-Medical): No Physical Activity: Not on file Stress: Not on file Social Connections: Not on file Interpersonal Safety: Not on file Housing Instability: Low Risk (11/25/2022) Received from [facility] Housing Stability Vital Sign Unable to Pay [...] you for your understanding. documented in this encounterParkview Health Bryan HospitalKashless [id number] Hospital Discharge instructions Patient Education 03/15/2024 13:28:21 [...] include: ?8 oz (237 mL) of milk, xyqpuqk-rdfkvkpcglgk-swqmw milk, and calcium- fortifiedfruit juice. Calcium-fortified means [...] ?Spinach (cooked), rhubarb, beets, sweet potatoes, and Hong Konger chard. ?Peanuts. ?Potato chips, wallisian fries, and baked potatoes with skin on. ?Nuts and nut products. ?Chocolate. If you regularly take a diuretic medicine, make sure to eat at least 1 or 2 servings of fruits or vegetables that are high in potassium each day. These include: ?Avocado. ?Banana. ?Marinette, prune, carrot, or tomato juice. ?Baked potato. [...] magnesium, fish oil, or vitamin B6. Take ckqz-ean-tqlhdop and prescription medicines only as told by [...] Casseroles. Pizza. Lasagna. Frozen meals. Potato chips. Peruvian fries. The items listed above may not [...] provider. Document Revised: 01/15/2023 Document Reviewed: 01/15/2023 [employer] Patient Education 2022 Bubbli. 03/15/2024 13:28:17 Antibiotic Medicine, Adult Antibiotic Medicine, [...] medicine. Follow these instructions at home: Take rbis-owy-bogfjdc and prescription medicines as told by your [...] provider. Document Revised: 11/19/2020 Document Reviewed: 07/24/2020 [employer] Patient Education 2022 Bubbli. 03/15/2024 13:27:57 Kidney Stones, Smjf-pq-Cwav Kidney Stones Kidney stones are rock-like masses [...] Follow these instructions at home: Medicines Take axrp-jey-gqywohv and prescription medicines only as told by [...] provider. Document Revised: 06/09/2022 Document Reviewed: 06/09/2022 [employer] Patient Education 2022 Bubbli. 03/15/2024 13:27:55 Benign Prostatic Hyperplasia Benign Prostatic [...] urethra. Follow these instructions at home: Take lceb-izr-wuozpsd and prescription medicines only as told by [...] provider. Document Revised: 04/23/2022 Document Reviewed: 04/23/2022 [employer] Patient Education 2022 Bubbli. [facility] 05-09-2024 Miscellaneous Notes* Telephone Encounter - Rachel Mixon CMA - 02/25/2024 8:54 AM EDT Received NURSING CARE ATTENDANT [facility] Will have provider review andsign. Will return fax. documented in this encounterWestern Reserve Hospital05-09-2024 Telephone encounter Note* Telephone Encounter - Rachel Mixon CMA - 02/25/2024 8:54 AM EDT Received NURSING CARE ATTENDANT Progress note from [facility] dated 02/25/24. Will have provider review andsign. Will return fax. [facility]05-06-2024 Miscellaneous Notes* Telephone Encounter - Julianna Barnes - 02/22/2024 4:55 PM EDT Refill request : SUMAtriptan (IMITREX) 50 mg tablet Last filled : 02/15/2024 Printed not signed by ordering provider Last OV : 11/16/2023 Next OV : None mentioned in last OV note. Reviewed by RESIDENTIAL GREEN BUILDING DESIGNER. Pend for signature. documented in this encounterWestern Reserve Hospital05-06-2024 Telephone encounter Note* Telephone Encounter - Julianna Barnes - 02/22/2024 4:55 PM EDT Refill request : SUMAtriptan (IMITREX) 50 mg tablet Last filled : 02/15/2024 Printed not signed by ordering provider Last OV : 11/16/2023 Next OV : None mentioned in last OV note. Reviewed by RESIDENTIAL GREEN BUILDING DESIGNER. Pend for signature. [facility]05-02-2024 Miscellaneous Notes* Telephone Encounter - Rachel Mixon CMA - 02/18/2024 4:03 PM EDT Received NURSING CARE ATTENDANT [facility] Will have provider review and sign. Will return fax. documented in this encounterWestern Reserve Hospital05-02-2024 Telephone encounter Note* Telephone Encounter - Rachel Mixon CMA - 02/18/2024 4:03 PM EDT Received NURSING CARE ATTENDANT [facility]. Will have provider review and sign. Will return fax. [facility]04-29-2024 Miscellaneous Notes* Telephone Encounter - Rachel Mixon CMA - 02/15/2024 4:22 PM EDT [facility] Note placed in Kathy's folder for review and signature. Will return fax upon completion. documented in this encounterWhite River Junction Va Medical CenterCyota [id number] Telephone encounter Note* Telephone Encounter - Rachel Mixon CMA - 02/15/2024 4:22 PM EDT Received PT Progress Note from [facility] rehab services. Note placed in Kathy's folder for review and signature. Will return fax upon completion. [facility] [employer] [id number] History and physical note Author Bernice Shrestha [facility] February 11, 2024 8:20am Note Date/Time February 11, 2024 8:2 0am [facility] [address] [place] [address] Gastroenterology H&P Signed Patient: Alisia Correa SR MR#: [id number] : 1960 Acct:[id number] Age/Sex: 63 / M Adm Date: 4 Loc: Room: Type: [facility] Attending Dr: Bernice Shrestha DO Copies [...] <Electronically signed by Bernice Shrestha DO> 02/11/24819 [facility] Work Phone: [phone]) 729-357604-25-2024 [facility] noteGalion [facility] Hospital04-23-2024 Miscellaneous Notes* Telephone Encounter - Julianna Barnes - 02/09/2024 6:56 PM EDT Refill request : SUMAtriptan (IMITREX) 50 mg tablet Last filled : 09/03/2023 Last OV : 11/16/2023 Next OV : No follow up mentioned in last OV note. Reviewed by Director Imaging. Pend for signature. documented in this encounterWestern Reserve Hospital04-23-2024 Telephone encounter Note* Telephone Encounter - Julianna Barnes - 02/09/2024 6:56 PM EDT Refill request : SUMAtriptan (IMITREX) 50 mg tablet Last filled : 09/03/2023 Last OV : 11/16/2023 Next OV : No follow up mentioned in last OV note. Reviewed by Director Imaging. Pend for signature. [facility] [employer] [id number] Miscellaneous Notes* Telephone Encounter - Rachel Mixon CMA - 01/28/2024 10:26 AM EDT Received Information for scheduling a Modified Barium Swallow form from the [facility] scheduled for 02/16/24 at 11:00am. Scanned and attached to this encounter and placed in RESIDENTIAL GREEN BUILDING DESIGNER's folder for completion. [employer] will fax upon completion. * Telephone Encounter - Julianna Barnes - 01/28/2024 10:26 AM EDT Noted. * Telephone Encounter - Julianna Barnes - 01/28/2024 10:26 AM EDT Documentation completed and placed with [facility] for faxing. documented in this encounterWestern Reserve Hospital04-11-2024 Telephone encounter Note* Telephone Encounter - Rachel Mixon CMA - 01/28/2024 10:26 AM EDT Received Information for scheduling a Modified Barium Swallow form from the [facility] [employer] scheduled for 02/16/24 at 11:00am. Scanned and attached to this encounter and placed in RESIDENTIAL GREEN BUILDING DESIGNER's folder for completion. [employer] will fax upon completion. [facility] [employer] [id number] Telephone encounter Note* Telephone Encounter - Julianna Barnes - 01/28/2024 10:26 AM EDT Noted. [facility] [employer] [id number] Telephone encounter Note* Telephone Encounter - Julianna Barnes - 01/28/2024 10:26 AM EDT Documentation completed and placed with [facility] for faxing. [facility]04-11-2024 Evaluation + Plan note* Assessment & Plan Note - Heidy Marin MD - 01/28/2024 9:41 AM EDTAssociated Problem(s): Critical limb ischemia of both lower extremities with gangrene (CMS-HCC) Bilateral toe wounds nonhealing, no PVR or testing [facility]04-11-2024 Miscellaneous Notes* Assessment & Plan Note [...] smoking AAA duplex US documented in this encounterWestern Reserve Hospital04-11-2024 Evaluation + Plan note* Assessment & Plan Note - Heidy Marin MD - 01/28/2024 9:40 AM EDT Associated Problem(s): Encounter for screening for abdominal aortic aneurysm (AAA) in patient 50 years of age or older with history of smoking AAA duplex US [facility]04-11-2024 History of Present illness Narrative* Heidy Marin [...] Past Medical History: Diagnosis Date Diabetes mellitus ([facility]) Diabetes mellitus type 2, controlled ([facility]) HL (hearing loss) Hypertension Kidney stones Migraine Parkinson's disease ([facility]) Spinal stenosis Past Surgical History: Past Surgical [...] Resource Strain: Low Risk (11/25/2022) Received from [facility] Overall Financial Resource Strain (CARDIA) Difficulty of Paying Living Expenses: Not very hard Food Insecurity: No Food Insecurity (01/28/2024) Hunger Screening Food Insecurity - Worry: Never True Food Insecurity - Inability: Never True Transportation Needs: No Transportation Needs (11/25/2022) Received from [facility] PRAPARE - Transportation Lack of Transportation (Medical): No Lack of Transportation (Non-Medical): No Physical Activity: Not on file Stress: Not on file Social Connections: Not on file Interpersonal Safety: Not on file Housing Instability: Low Risk (11/25/2022) Received from [facility] Housing Stability Vital Sign Unable to Pay [...] ischemia of both lower extremities with gangrene ([facility]) Overview Bilateral toe wounds nonhealing, no PVR [...] Heidy Marin MD, TESSIE, RPVI, FSVS, FACS [facility] [employer] This note was created with the assistance of a speech recognition program. While intending to generate a timely document that accurately reflects the content of the visit, no guarantee can be provided that every grammatical or spelling mistake has been or will be identified or corrected. Thank you for your understanding. documented in this encounterWestern Reserve Hospital03-26-2024 Miscellaneous Notes* Telephone Encounter - Rachel Mixon CMA - 01/12/2024 9:35 AM EDT Received NURSING CARE ATTENDANT Initial Eval from [facility] dated 01/06/24. Will have Kathy review and sign. Will return fax. documented in this encounterWestern Reserve Hospital03-26-2024 Telephone encounter Note* Telephone Encounter - Rachel Mixon CMA - 01/12/2024 9:35 AM EDT Received NURSING CARE ATTENDANT Initial Eval from [facility] dated 01/06/24. Will have Kathy review and sign. Will return fax. [facility]03-26-2024 Miscellaneous Notes* Telephone Encounter - Rachel Mixon CMA - 01/12/2024 9:[address] request to evaluate and treat from [facility] dated 01/08/24. Will have Mollyreview and sign. Will return fax. documented in this encounterWestern Reserve Hospital03-26-2024 Telephone encounter Note* Telephone Encounter - Rachel Mixon CMA - 01/12/2024 9:[address] request to evaluate and treat from [facility] dated 01/08/24. Will have Mollyreview and sign. Will return fax. [facility]03-22-2024 Miscellaneous Notes* Telephone Encounter - Rachel Mixon CMA - 01/08/2024 8:17 AM EDT Received PT Initial Eval from [facility] dated 01/06/24 . Will have Kathy review and sign. Will return fax. documented in this encounterWestern Reserve Hospital03-22-2024 Telephone encounter Note* Telephone Encounter - Rachel Mixon CMA - 01/08/2024 8:17 AM EDT Received PT Initial Eval from [facility] dated 01/06/24 . Will have Kathy review and sign. Will return fax. [facility]02-23-2024 Miscellaneous Notes* Telephone Encounter - Fidelia Lagunas - 12/11/2023 8:55 AM EST Refill Request Medication:midodrine (PROAMATINE) 5 mg tablet Strength: Current dose & Frequency: 30 day or 90 day supply: Pharmacy:[facility] [address] Request was made by:Patients daughter. Caller [...] mentioned in last ov note. Reviewed by RESIDENTIAL GREEN BUILDING DESIGNER Pend for signature. documented in this encounterKettering [facility] [employer] [id number] Telephone encounter Note* Telephone Encounter - Fidelia Lagunas - 12/11/2023 8:55 AM EST Refill Request Medication:midodrine (PROAMATINE) 5 mg tablet Strength: Current dose & Frequency: 30 day or 90 day supply: Pharmacy:[address] Request was made by:Patients daughter. Caller states patient Is now out of this medication and the pharmacy needs a new script that reflects the changes that was made at last appointment. Patient now takes a total of 9 pills with the change and that's why patient run our early. Please advise [facility] HospitalArat[facility]rapeutics02-23-2024 Telephone encounter Note* Telephone Encounter - Julianna Barnes - 12/11/2023 8:55 AM EST Refill request : midodrine (PROAMATINE) 5 mg tablet Last filled : 09/02/2023 Last OV : 11/16/2023 Next OV : No follow up mentioned in last ov note. Reviewed by RESIDENTIAL GREEN BUILDING DESIGNER Pend for signature. [facility]01-30-2024 Evaluation note* Encounter Date Diagnosis Assessment Notes Treatment Notes Treatment Clinical Notes Oct, Arthritis (ICD-10 - M19.90) Oct, Chronic pain syndrome (ICD-10 - G89.4) [facility] 01-30-2024 Miscellaneous Notes* Telephone Encounter - Rachel Mixon, PUBLICIST - 11/17/2023 1:56 PM EST Fidelia received call from patient's son stating that patient needs a refill on C/L IR and they didn't realize that it needed filled until they got home from their appointment yesterday 11/16/23. In [facility], Rx for C/L IR 25-100 mg was written yesterday 11/16/23. 30 day supply with 11 refills. [facility] to verify that they had received Rx. mechanical facilities technician stated they did receive Rx. Called and spoke with patient's Dipti and informed her of Rx. Dipti voiced understanding. Noaction needed. documented in this encounterWestern Reserve Hospital01-30-2024 Telephone encounter Note* Telephone Encounter - Rachel Mixon CMA - 11/17/2023 1:56 PM EST Fidelia received call from patient's son stating that patient needs a refill on C/L IR and they didn't realize that it needed filled until they got home from their appointment yesterday 11/16/23. In [facility], Rx for C/L IR 25-100 mg was written yesterday 11/16/23. 30 day supply with 11 refills. Called [facility] to verify that they had received Rx. mechanical facilities technician stated they did receive Rx. Called and spoke with patient's Dipti and informed her of Rx. Dipti voiced understanding. Noaction needed. [facility] [id number] History of Present illness Narrative* Reena Cervantes APRN-KAUSHAL - 11/16/2023 1:00 PM EST Images from the original note were not included. [address] [facility] [id number] Patient: Alisia Tillmanparas Sr. Date of : 1960 Encounter Date: [...] further dose adjustments He was admitted to [facility]: 11/20/22 to 12/06/22 Mr. Correa, You [...] Past Medical History: Diagnosis Date Diabetes mellitus ([facility]) Diabetes mellitus type 2, controlled ([facility]) HL (hearing loss) Hypertension Kidney stones Migraine [...] MORALES APRN-CNP 12/07/23 0817 documented in this encounterWestern Reserve Hospital01-29-2024 Instructions* Patient Instructions* REGAN Morales - [...] some issues with numbness/tingling. documented in this encounterWestern Reserve Hospital01-23-2024 Evaluation note* Encounter Date Diagnosis Assessment [...] at this time. This will be monitored [facility] Other 01-22-2024 Evaluation note* Encounter Date Diagnosis Assessment Notes Treatment Notes Treatment Clinical Notes Oct, Arthritis (ICD-10 - M19.90) [facility] Other 01-22-2024 Miscellaneous Notes* Telephone Encounter - Julianna Barnes - 11/09/2023 10:42 AM EST Refill request: Sinemet IR 25-100 mg tablet and Sinemet ER 25- 100 mg tablet [employer] phoned patient and patient has refills remaining on both medications at pharmacy. Patient voiced understanding. documented in this encounterParkview Health Bryan HospitalMarinelayer01-22-2024 Telephone encounter Note* Telephone Encounter - Julianna Cameron - 11/09/2023 10:42 AM EST Refill request: Sinemet IR 25-100 mg tablet and Sinemet ER 25- 100 mg tablet [employer] phoned patient and patient has refills remaining on both medications at pharmacy. Patient voiced understanding. [facility] [id number] Evaluation note* Encounter Date Diagnosis Assessment Notes Treatment Notes Treatment Clinical Notes Sep, Arthritis (ICD-10 - M19.90) [facility] Other 11-29-2023 Evaluation note* Encounter Date Diagnosis Assessment Notes Treatment Notes Treatment Clinical Notes Aug, Anxiety (ICD-10 - F41.9) Aug, Neuropathy (ICD-10 - G62.9) [facility] Other 11-28-2023 Evaluation note* Encounter Date Diagnosis Assessment Notes Treatment Notes Treatment Clinical Notes Aug, Diabetic nephropathy (ICD-10 - E11.21) [facility] Other 11-15-2023 Evaluation note* Encounter Date Diagnosis [...] medrol should help with this as well. [facility] Other 11-07-2023 Evaluation note* Encounter Date Diagnosis Assessment Notes Treatment Notes Treatment Clinical Notes Aug, UTI (urinary tract infection) (ICD-10 - N39.0) Aug, Diarrhea (ICD-10 - R19.7) [facility] Other 09-15-2023 Evaluation note* Encounter Date Diagnosis Assessment Notes Treatment Notes Treatment Clinical Notes Jun, Arthritis (ICD-10 - M19.90) [facility] Other 08-08-2023 Evaluation note* Encounter Date Diagnosis Assessment Notes Treatment Notes Treatment Clinical Notes May, Parkinson disease (ICD-10 - G20) May, Constipation (ICD-10 - K59.00) [facility] Other 08-01-2023 Evaluation note* Encounter Date Diagnosis [...] narcotic induced constipation and he verbalized understanding. [facility] Other 07-10-2023 Evaluation note* Encounter Date Diagnosis Assessment Notes Treatment Notes Treatment Clinical Notes Apr, Hypotestosteronism (ICD-10 - E34.9) [facility] Other 06-02-2023 Hospital Discharge instructions Patient Education [...] and water are not available, use hand repairer screen crusher. 3.Draw up sterile water into a syringe [...] and water are not available, use hand repairer screen crusher. 2.Disconnect the bag from the catheter and [...] of the following methods: According to the greenhouse specialist's instructions. As told by your health care provider. 7.Let the bag dry completely. Put it in a clean plastic bag before storing it. General tips Always wash your hands before and after caring for your catheter and collection bag. Use a mild, fragrance-free soap. If soap and water are not available, use hand repairer screen crusher. Clean the outside of the catheter with [...] provider. Document Revised: 12/13/2020 Document Reviewed: 11/09/2019 [employer] Patient Education 2022 [employer]. Follow Up Care 02/20/2023 10:24:17 With:WALTER YBARRA, Fidel Hinkle, URL Address: [facility] [address] , [place] [address]- When: Unknown [facility] 05-05-2023 Hospital Discharge instructions Patient [...] Follow these instructions at home: Medicines Take mmzw-iqs-arqobla and prescription medicines only as told by [...] provider. Document Revised: 06/26/2021 Document Reviewed: 06/26/2021 [employer] Patient Education 2022 [employer]ubb[employer]. Follow Up Care 01/16/2023 11:27:11 With:WALTER YBARRA, Fidel Hinkle, URL Address: [address] [place], [place] [id number]- When: Unknown [facility] 04-14-2023 Hospital Discharge instructions Patient [...] urethra. Follow these instructions at home: Take xixc-sjr-emlwjbp and prescription medicines only as told by [...] 10/05/2006 Document Revised: 08/30/2019 Document Reviewed: 11/09/2017 [employer] Patient Education 2020 [employer]. 01/30/2023 07:57:19 Indwelling Urinary Catheter Care, Adult, Nvkf-gc-Kdsm Indwelling Urinary Catheter Care, Adult An indwelling [...] not have soap and water, use hand repairer screen crusher. Always make sure there are no twists [...] 01/30/2014 Document Revised: 01/27/2020 Document Reviewed: 05/21/2018 [employer] Patient Education 2020 [employer] 01/30/2023 07:56:45 Benign Prostatic Hyperplasia Benign [...] urethra. Follow these instructions at home: Take yzyp-zlg-vfacwdx and prescription medicines only as told by [...] 10/05/2006 Document Revised: 08/30/2019 Document Reviewed: 11/09/2017 [employer] Patient Education 2020 [employer]. Follow Up Care 01/27/2023 14:28:53 With:WALTER YBARRA, Fidel Hinkle, URL Address: [facility] [address] , [place] [address]- [phone] When:Within 3 Week(s) Comments:3 weeks for SP tube change [facility] NoteOP Note OPERATION DATE: 01/22/2023 [...] the flexible scope and then passed a 26-Peruvian resectoscope sheath into the bladder, and then I used the [employer] evacuator and was able to extract all [...] of the incision. I then grasped a 24-Peruvian two way Carrington catheter in the jaws [...] bag. He was then transferred to a rantioch bed and wheeled to recovery room after sterile dressing was placed over the incision. He will be discharged to home later today. He will continue his daily Augmentin. Follow up will be in four weeks to change his SP tube in the office.[facility] [id number] NoteEXAMINATION: XR CHEST 2 V, 01/20/2023 11:23 [...] authenticated by: SHARRON BENITEZ Date: 2023-01-20 12:49[facility] [id number] Evaluation note* Encounter Date Diagnosis Assessment Notes Treatment Notes Treatment Clinical Notes Dec, Neuropathy (ICD-10 - G62.9) [facility] Other [id number] NoteHNO ID: [id number] Author: Say Reyes APRN.GED INSTRUCTOR Service: ? Author Type: Nurse Practitioner Type: Progress Notes Filed: 12/24/2022 5:59 PM Note Text: The patient did not show up for this appointment.[facility] [id number] History of Present illness Narrative* Say Reyes APRN.GED INSTRUCTOR - 12/24/2022 11:30 AM EST The patient did not show up for this appointment. documented in this encounterSelect Medical Specialty [facility], Inc02-18-2023 NoteProm[facility]02-18-2023 NotePromedica Toledo Hospital02-18-2023 Miscellaneous Notes * Telephone Encounter - Zelda Saenz RN - 12/06/2022 1:15 PM EST [facility] [place] pharmacist, Macrina, requests to clarify pt.'s proamatine [...] from CC later today. documented in this encounterSelect Medical Specialty [facility], Inc02-17-2023 NotePromedica Toledo Hospital02-16-2023 NotePromedica [facility] Hospital02-16-2023 NotePromedica [facility] Hospital02-15-2023 NotePromedica [facility] Hospital02-15-2023 Note [facility]02-15-2023 NoteProm[facility] Hospital02-14-2023 NoteProm[facility] Hospital02-13-2023 NoteProm[facility] 12-01-2022 NotePromedica Tol[facility] Hospital02-13-2023 NotePromedica [facility] Hospital02-12-2023 NotePromedica [facility] Hospital02-11-2023 NotePromedica [facility] Hospital02-11-2023 NotePromedica [facility] Hospital02-10-2023 Note [facility]02-09-2023 NotePromedica [facility] Hospital02-08-2023 NoteHNO ID: [id number] Author: Antonia Villa RN Service: ? Author Type: Registered Nurse Type: Nursing Progress Note Filed: 11/26/2022 10:03 AM Note Text: Transfer Note: Patient transferred in stable condition. Actions taken: Report given/called to G6Campbell RN.[facility]02-08-2023 NotePromedica Toledo Hospital02-08-2023 NotePromedica Toledo Hospital02-07-2023 NotePromedica Tol[facility] Hospital02-06-2023 NotePromedica [facility] Hospital02-05-2023 Note [facility]02-04-2023 NotePromedica [facility] Hospital02-03-2023 NotePromedica [facility] Hospital02-03-2023 NoteProm[facility] 11-20-2022 NotePromedica Toledo Hospital02-02-2023 NotePromedica Toledo Hospital01-30-2023 Evaluation note* Encounter Date Diagnosis Assessment Notes Treatment Notes Treatment Clinical Notes Oct, Orthostatic hypotension (ICD-10 - I95.1) [facility] Other 01-24-2023 Evaluation note* Encounter Date Diagnosis [...] He is symptomatic with dizziness and fatigue. [facility] was contacted and will attempt to [...] sympoms. We did attempt to call his automatic centrifugal station operator however nursing staff will need to discuss with Dr. Teran and they have advised that they will call both us and the patient back with an appt and recommendations due to his significant hypotention. [facility] Other 11-15-2022 Evaluation note* Encounter Date Diagnosis [...] Aug, Needs flu shot (ICD-10 - Z23) [facility] Other 11-11-2022 Evaluation note* Encounter Date Diagnosis Assessment Notes Treatment Notes Treatment Clinical Notes Aug, Benign prostatic hyperplasia with lower urinary tract symptoms, symptom details unspecified (ICD-10 - N40.1) [facility] Other 11-10-2022 Evaluation note* Encounter Date Diagnosis Assessment Notes Treatment Notes Treatment Clinical Notes Aug, Benign prostatic hyperplasia with lower urinary tract symptoms, symptom details unspecified (ICD-10 - N40.1) [facility] Other 08-30-2022 Evaluation note* Encounter Date Diagnosis Assessment Notes Treatment Notes Treatment Clinical Notes May, Neuropathy (ICD-10 - G62.9) [facility] Other 08-03-2022 Evaluation note* Encounter Date Diagnosis [...] - N40.1) May, Parkinsonism (ICD-10 - G20) [facility] Other 06-07-2022 Evaluation note* Encounter Date Diagnosis Assessment Notes Treatment Notes Treatment Clinical Notes Mar, Hypotension (ICD-10 - I95.9) [facility] Other 05-03-2022 History of Present illness Narrative* Nevaeh Oviedo RN - 02/18/2022 12:15 PM EDT Discharged with [facility] per cart to shelter with AVS and scripts. * Nevaeh Oviedo RN - 02/18/2022 11:00 AM EDT Report called to [facility]. All Questions answered. Phone number given [...] HOLLY Morejon - 02/17/2022 10:02 AM EDT [facility] 7K Occupational Therapy Daily Note Time: Time In: 923 Time Out: 1002 Timed Code Treatment Minutes: 38 Minutes Minutes: 38 Date: 02/17/2022 Patient Name: Alisia Correa, Gender: male Room: [facility]12012-A : 1960 (61 y.o.) Referring Practitioner: Maki [...] Wall PT - 02/16/2022 10:39 AM EDT [facility] INPATIENT PHYSICAL THERAPY DAILY NOTE [facility] 7K - 7K-12/012-A Time [...] Ambulation Assistance: Independent Transfer Assistance: Independent Active Wool Fleece Sorter: Yes Additional Comments: pt states d/t PD, he requires assistance with transfers and ambulation; pt hadHH PT DIRECTOR EDUCATION Restrictions/Precautions: Restrictions/Precautions: General Precautions,Fall Risk Required Braces [...] to navigate home distances. Additional Goals?: No Group Home Goals Time Frame for custodial goals : N/A due to short ELOS Following session, patient left in safe position with all fall risk precautions in place. * Lulu Chan, OT - 02/15/2022 2:57 PM EDT [facility]K Occupational Therapy Daily Note Time: Time In: 1452 Time Out: 1520 Timed Code Treatment Minutes: 28 Minutes Minutes: 28 Date: 02/15/2022 Patient Name: Alisia Correa, Gender: [facility] 1960 (61 y.o.) Referring [...] Vaughan, PT - 02/14/2022 3:02 PM EDT [facility] INPATIENT PHYSICAL THERAPY DAILY NOTE [facility] ORTHOPEDICS 7K - 7K-12/012-A Time [...] Ambulation Assistance: Independent Transfer Assistance: Independent Active Wool Fleece Sorter: Yes Additional Comments: pt states d/t PD, he requires assistance with transfers and ambulation; pt hadHH PT DIRECTOR EDUCATION Restrictions/Precautions: Restrictions/Precautions: General Precautions,Fall Risk Required Braces [...] to navigate home distances. Additional Goals?: No Group Home Goals Time Frame for supervisor intermediates goals : N/A due to short ELOS [...] HOLLY Mchugh - 02/14/2022 10:57 AM EDT [facility] OCCUPATIONAL THERAPY MISSED TREATMENT NOTE [facility] 7K 7K-12/012-A Date: 02/14/2022 Patient Name: Alisia Correa CSN: [id number] : 1960 (61 y.o.) Gender: male Referring [...] HOLLY Morejon - 02/13/2022 12:33 PM EDT [facility] ORTHOPEDICS 7K Occupational Therapy Daily Note Time: Time In: 1109 Time Out: 1135 Timed Code Treatment Minutes: 26 Minutes Minutes: 26 Date: 02/13/2022 Patient Name: Alisia Correa, Gender: male [facility]012-[facility] : 1960 (61 y.o.) Referring Practitioner: Maki [...] Vaughan PT - 02/13/2022 11:02 AM EDT [facility] INPATIENT PHYSICAL THERAPY DAILY NOTE [facility] ORTHOPEDICS 7K - 7K-12/012-A Time In: 0904 Time Out: 0929 Timed Code Treatment Minutes: 25 Minutes Minutes: [...] Ambulation Assistance: Independent Transfer Assistance: Independent Active Wool Fleece Sorter: Yes Additional Comments: pt states d/t PD, he requires assistance with transfers and ambulation; pt hadHH PT DIRECTOR EDUCATION Restrictions/Precautions: Restrictions/Precautions: General Precautions,Fall Risk Required Braces [...] without Stair Climbing Raw Score : 15 AM-[facility] Inpatient without Stair Climbing T-Scale Score [...] to navigate home distances. Additional Goals?: No Script Manager Goals Time Frame for custodial goals : [...] HOLLY Morejon - 02/12/2022 2:39 PM EDT [facility] ORTHOPED[facility] 7 Occupational Therapy Daily Note Time: Time In: 1356 Time Out: 1439 Timed Code Treatment Minutes: 43 Minutes Minutes: 43 Date: 02/12/2022 Patient Name: Alisia Correa, Gender: male Room: [facility]/012-A : 1960 (61 y.o.) Referring Practitioner: Maki [...] Patient tolerance of treatment: fair. Discharge Recommendations: Subacute/nursing home facility and Inpatient Therapy Stay Equipment [...] Status: At risk for malnutrition (Comment) (02/10/22 9925) Context: Acute Illness Findings of the 6 clinical characteristics of malnutrition: Energy Intake: No significant decrease in energy intake Weight Loss: (4.8% wt loss in 18 days however now eating 76-100%) Body Fat Loss: No significant body fat loss Muscle Mass Loss: No significant muscle mass loss Fluid Accumulation: Mild Extremities Veneer Clipper Helper Strength: Not Performed Nutrition Assessment: Pt. nutritionally [...] Anthropometric Measures: Height: 5' 10 (177.8 cm) [place] Body Weight (IBW): 166 lbs (75 kg) [...] 1625-1806kcals (18-20kcals/kgm) Weight Used for Protein Requirements: [place] Protein (g/day): 105-150 grams (1.4-2 grams protein/kgm [...] 1:48 PM Subjective: Admit Date: 02/07/2022 PCP: ELELN CRABTREE DO Interval History: S/p lumbar decompression [...] 60 minutes Evelina Parra MD, MD * Samanthamelly Corrales, DIRECTOR EDUCATION - 02/12/2022 11:52 AM EDT [facility] INPATIENT PHYSICAL THERAPY DAILY NOTE [facility] ORTHOPEDICS 7K - 7K-12/012-A Time [...] Ambulation Assistance: Independent Transfer Assistance: Independent Active Wool Fleece Sorter: Yes Additional Comments: pt states d/t PD, he requires assistance with transfers and ambulation; pt hadHH PT DIRECTOR EDUCATION Restrictions/Precautions: Restrictions/Precautions: General Precautions,Fall Risk Required Braces [...] functional mobility. Functional Outcome Measures: Completed AM-[facility] Inpatient Mobility without Stair Climbing Raw Score : 12 AM-[facility] Inpatient without Stair Climbing T-Scale Score [...] to navigate home distances. Additional Goals?: No Script Manager Goals Time Frame for supervisor intermediates goals : N/A due to short ELOS [...] PM EDT Pt admitted to [facility] via cart/stretcher. Complaints: L2-S1 degenerative disc [...] room. Explained patients right to have family, franchise sales representative or physician notified of their admission. Patient has Declined for physician to be notified. Patient has Declined for family/franchise sales representative to be notified. The patient is interested in [facility] meds to beds program?: No Policies and procedures for explained. All questions answered with no further questions at this time. Fall prevention and safety brochure discussed with patient. Bed alarm on. Call light in reach. * Peace Alonso RN - 02/11/2022 5:00 PM EDT Call placed to patients Dipti. Updated that the patient is transferring to [facility]. * Pamela Lees PT - 02/11/2022 3:42 PM EDT [facility] INPATIENT PHYSICAL THERAPY DAILY NOTE [facility] ICU STEPDOWN TELEMETRY K - --A Time In: 1330 Time Out: 1353 Timed [...] Ambulation Assistance: Independent Transfer Assistance: Independent Active Wool Fleece Sorter: Yes Additional Comments: pt states d/t PD, he requires assistance with transfers and ambulation; pt hadHH PT DIRECTOR EDUCATION Restrictions/Precautions: Restrictions/Precautions: General Precautions,Fall Risk Required Braces [...] to navigate home distances. Additional Goals?: No Group Home Goals Time Frame for custodial goals : N/A due to short ELOS Following session, patient left in safe position with all fall risk precautions in place. * HOLLY Valles - 02/11/2022 1:02 PM EDT [facility] ICU STEPDOWN TELEMETRY 4K Occupational Therapy Daily Note Time: Time In: 1045 Time Out: 1129 Timed Code Treatment Minutes: 44 Minutes Minutes: 44 Date: 02/11/2022 Patient Name: Alisia Correa, Gender: male [facility] 1960 (61 y.[facility] Referring Practitioner: Maki [...] muscle mass loss Fluid Accumulation: Mild Extremities Veneer Clipper Helper Strength: Not Performed Nutrition Assessment: Pt. nutritionally [...] Anthropometric Measures: Height: 5' 10 (177.8 cm) [place] Body Weight (IBW): 166 lbs (75 kg) [...] 1625-1806kcals (18-20kcals/kgm) Weight Used for Protein Requirements: [place] Protein (g/day): 105-150 grams (1.4-2 grams protein/kgm [...] EDT Physician Progress Note PATIENT: ALISIA CORREA [facility] #: [id number] : 1960 ADMIT DATE: 02/07/2022 8:09 AM [...] you! Ronny Salcedo, FARIBAN,RN, CRCR RN Clinical E Mail System Administrator P: [phone] Options provided: -- Hypovolemic Shock -- Hypovolemia [...] 02/10/2022 12:24 PM Electronically signed by: MARIELENA MUSTFAA 02/10/2022 3:43 PM * HLOLY Mchugh - 02/10/2022 2:42 PM EDT [facility] ICU STEPDOWN TELEMETRY 4K Occupational Therapy Daily Note Time: Time In: 1358 Time Out: 1421 Timed Code Treatment Minutes: 23 Minutes Minutes: 23 Date: 02/10/2022 Patient Name: Alisia Correa, Gender: male Room: [facility]025-A : 1960 (61 y.o.) Referring [...] Alisia Correa Date of : 1960 Acct: [id number] Admit Date: 02/07/2022 Primary Nursery Manager: none Per Dr Schrader's note: REASON FOR [...] noted Medications: midodrine 15 mg Oral TID hydrocortisone sodium succinate PF 100 mg IntraVENous [...] Echocardiogram complete at bedside. * Adali Calix, DIRECTOR EDUCATION - 02/10/2022 9:53 AM EDT [facility] INPATIENT PHYSICAL THERAPY DAILY NOTE [...] Needs assistance Transfer Assistance: Needs assistance Active Wool Fleece Sorter: No Additional Comments: pt states d/t PD, he requires assistance with transfers and ambulation; pt hadHH PT DIRECTOR EDUCATION Restrictions/Precautions: Restrictions/Precautions: General Precautions,Fall Risk Required Braces [...] functional mobility. Functional Outcome Measures: Completed AM-[facility] Inpatient Mobility Raw Score : 12 AM-[facility] Inpatient T-Scale Score : 35.33 ASSESSMENT: [...] to navigate home distances. Additional Goals?: No Script Manager Goals Time Frame for custodial goals : [...] Intake/Output Summary (Last 24 hours) at 02/10/2022 0726 Last data filed at 02/10/2022 0547 Gross [...] Progress Note PATIENT: ALISIA CORREA CSN #: [id number] : 1960 ADMIT DATE: 02/07/2022 8:09 AM [...] weaned to RA; 02/08: 94% on 2 L; PICHARDO, expiratory wheezes Treatment: O2 via NC, Dulera Thank you! Nevaeh Goldsmith, RN, BSN, ARCHEOLOGIST CLASSICAL, CCDS Clinical E Mail System Administrator Options provided: -- Acute pulmonary insufficiency following [...] DON SINGH PA-C 02/09/2022 9:55 AM * Radames Tolentino MD - 02/09/2022 8:22 AM EDT Progress note Internal Medicine Specialities Patient: Alisia Correa Date of : 1960 Acct: [id number] -A Primary Care Physician: ELLEN CRABTREE DO [...] TROPONINT in the last 72 hours. Imaging: @[id number]@ EKG: Diet: ADULT DIET; Regular; 4 carb choices (60 gm/meal) Data: Scheduled Meds: Scheduled Meds: midodrine 7.5 mg Oral TID hydrocortisone sodium succinate PF 100 mg IntraVENous [...] of care discussed with supervising physician, Dr Tolentino. Pt seen and examined by me D/w Marielena Mustafa Pt did not respond to multiple fluid bolus and increase in midodrine yesterday and hence had to be transferred to [facility] for dopamine drip Pt this morning on [...] 0915 Rapid Response team arrived. Marielena Mustafa PT SKILLED at bedside. Saline bolus ordered and started. 0922 BP 70/46 0923 Orders received. Start on telemetry monitoring, CXR, Increase Midodrine to TID, Stat H+H. 0937 Orders received. H+H at 1700, CBC in AM 1007 CXR at bedside. BP 64/45. Hgb 11.4. IM notified. 1023 BP continues to be low. 500mL saline bolus started 1141 BP 85/47 after bolus. Updated GED INSTRUCTOR. 1218 BP 70/38, MD at bedside. Ordered [...] Griffin OT - 02/08/2022 1:01 PM EDT [facility] INPATIENT OCCUPATIONAL THERAPY [facility] 7K EVALUATION [...] needing to return to bed from recliner. RESIDENTIAL GREEN BUILDING DESIGNER present to assist. Pain: 3/10 Vitals: Blood [...] Needs assistance Transfer Assistance: Needs assistance Active Wool Fleece Sorter: No Additional Comments: pt states d/t PD, he requires assistance with transfers and ambulation; pt hadHH PT DIRECTOR EDUCATION VISION:WFL HEARING: WFL COGNITION: Slow Processing and [...] and bradycardia Don Singh PAC * Oumou Pandya PT - 02/08/2022 10:33 AM EDT [facility] INPATIENT PHYSICAL THERAPY EVALUATION [facility] ORTHOPEDICS 7K - 7K-26/026-A Time [...] Assistance: Needs assistance ( assists him) Active Wool Fleece Sorter: No Additional Comments: pt states d/t PD, he requires assistance with transfers and ambulation; pt hadHH PT DIRECTOR EDUCATION OBJECTIVE: Range of Motion: Bilateral Lower Extremity: [...] and lightheaded Functional Outcome Measures: Completed AM-[facility] Inpatient Mobility Raw Score : 11 AM-[facility] Inpatient T-Scale Score : 33.86 ASSESSMENT: [...] Recommendations: Discharge Recommendations: Continue to assess pending progress,Subacute/Shelter Facility. Unsafe to return home at this [...] to navigate home distances. Additional Goals?: No Group Home Goals Time Frame for supervisor intermediates goals : N/A due to short ELOS [...] Patient laid back in recliner. IVF increased. notified. States to start a 250mL saline [...] ordered Zetia 10 mg nightly. Per the [facility] Formulary Committee Policy, this medication is [...] 02/07/2022 2:11 PM EDT Pt admitted to [facility] via cart/stretcher. Complaints: L2-S1 decompression/fusion. IV normal [...] room. Explained patients right to have family, franchise sales representative or physician notified of their admission. Patient has Declined for physician to be notified. Patient has Declined for family/franchise sales representative to be notified. The patient is interested in [facility] meds to beds program?: No Policies and procedures for explained. All questions answered with no further questions at this time. Fall prevention and safety brochure discussed with patient. Bed alarm on. Call light in reach. * Kiara Toro RN - 02/07/2022 9:49 AM EDT ADMITTED TO [facility] AND ORIENTED TO UNIT. SCDS ON. FALL AND ALLERGY BANDS ON. PT VERBALIZED APPROVAL FOR FIRST NAME, LAST INITIAL AND PHYSICIAN NAME ON UNIT WHITEBOARD. * Evangelist Cummins - 01/20/2022 9:11 AM EDT Called for PAT reminder Lft Msg. documented in this [facility] Phone: [phone]) 218-196305-03-2022 Hospital Discharge instructions* Discharge Instr - DYLON* [...] directive for healthcare treatment Durable power of civil litigation attorney for health care No, copy requested from family Healthcare power of civil litigation attorney Dipti- -- Admitting Physician: Frank Oden MD PCP: ELLEN CRABTREE DO Discharging Nurse: Discharging Hospital Unit/Room#: 7K-12/012-A Discharging Unit Phone Number: Emergency Contact: Extended Emergency Contact Information Primary Emergency Contact: Dipti Correa Mobile Relation: Spouse Preferred language: Polish Clinical Interviewer needed? No Past Surgical History: Past Surgical History: Procedure Laterality Date BACK SURGERY x8 CYST REMOVAL spine with back surgery ESOPHAGUS SURGERY for cancer HAND SURGERY x3 HIP ARTHROPLASTY Bilateral KNEE ARTHROPLASTY Bilateral left x2 LUMBAR FUSION N/A 02/07/2022 L2-S1 DECOMPRESSION L2-S1 POSTERIOR FUSION WITH ILIAC BOLTS, L5-S1 TLIF performed by Frank Oden MD at [facility] OR NECK SURGERY lymph nodes [...] Assisted Dressing Assisted Toileting Assisted Feeding Assisted Pocket Setter Lockstitch Assisted Med Delivery whole Wound Care Documentation [...] Assessment Other (Comment) 02/14/222225 Drainage Amount None 02/16/22 194 Odor None 02/14/222225 Charley-incision Assessment Warm;Intact 02/14/222225 [...] applicable) Name: Address: Dialysis Schedule: Phone: Fax: Technical Spec/Speech And Language Tutor signature: {Esignature:[id number]} PHYSICIAN SECTION Prognosis: {Prognosis:8842614637} Condition at Discharge: { Patient Condition:398142813} Rehab Potential (if transferring to Rehab): {Prognosis:2277084774} Recommended Labs or Other Treatments After Discharge: Physician Certification: I certify the above information and transfer of Alisia Correa is necessary for the continuing treatment of the diagnosis listed and that he requires {Admit to Appropriate Level of Care:93308} for {GREATER/LESS:210109698} 30 days. Update Admission H&P: {CHP DME Changes in HandP:643198708} PHYSICIAN SIGNATURE: * Additional Instructions* Nevaeh Oviedo, [...] All vegetables, especially asparagus, jack sprouts, broccoli, [place] sprouts, cabbage, carrots, cauliflower, celery, corn, greens, [...] taking more than one drug. This includes [id number] medication and herb or dietary supplements. Plan [...] dr schrader 6-8 weeks documented in this [email or web address] Phone: [phone] NotePROCEDURE: XR CHEST PORTABLE CLINICAL INFORMATION: SOB. [...] Signed by: Romel Maldonado DO 02/08/22 Final [facility]SBapt[facility]04-23-2022 NotePROCEDURE: XR CHEST PORTABLE CLINICAL INFORMATION: SOB. [...] stable degenerative changes of the acromioclavicular joints. [facility] [id number] NotePROCEDURE: XR LUMBAR SPINE 1 VW CLINICAL [...] Signed by: Milton Way MD 02/07/22 Final resultSBaptist [facility] [place]04-22-2022 NotePROCEDURE: XR LUMBAR SPINE 1 VW CLINICAL [...] behind the L2 and L3 vertebral bodies. [facility] [id number] Evaluation note* Encounter Date Diagnosis Assessment Notes [...] Nasal swab noted MRSA. Advised patient to sampler pickup antibiotic and start it as soon as possible. [facility] Other [id number] NotePROCEDURE: XR CHEST (2 VW) CLINICAL INFORMATION: [...] Signed by: Olga Espinoza MD 01/23/22 Final resultSBaptist [facility] [place]04-04-2022 Evaluation note* Encounter Date Diagnosis Assessment Notes Treatment Notes Treatment Clinical Notes Jan, Parkinsonism (ICD-10 - G20) Jan, Diabetes (ICD-10 - E11.9) [facility] [employer] Other 03-28-2022 Evaluation note* Encounter Date Diagnosis Assessment Notes Treatment Notes Treatment Clinical Notes Dec, Constipation (ICD-10 - K59.00) [facility] [employer] Other 02-17-2022 Evaluation note* Encounter Date Diagnosis Assessment Notes Treatment Notes Treatment Clinical Notes Nov, Hyperlipidemia (ICD-10 - E78.5) Nov, Parkinsonism (ICD-10 - G20) Patient following with neurologist Dr. Mancia and microeconomics professor Dr. Harris. He reports improvement with his [...] symptoms, symptom details unspecified (ICD-10 - N40.1) [facility] Other 02-07-2022 Miscellaneous Notes* Telephone Encounter - Chrissy Christian - 11/25/2021 3:17 PM EST FINAL ATTEMPT Called and left detailed message for patient to call to schedule procedure with pain management. Will follow up. Patient provided with direct extension to reach surgical coordinators. If patient calls back, please transfer to [phone]. * Telephone Encounter - Chrissy Christian - 11/21/2021 6:07 PM EST Bilateral L 2-3 ,3-L4, L4-L5 and L5-S1 FACET ALISIA CORREA [id number] JEANNIE CAMENGER Called and left detailed message for patient to call to schedule procedure with pain management. Will follow up. Patient provided with direct extension to reach surgical coordinators. If patient calls back, please transfer to [phone]. * Telephone Encounter - Chrissy Christian - 11/14/2021 11:53 AM EST Bilateral L 2-3 ,3-L4, L4-L5 and L5-S1 FACET ALISIA CORREA [id number] JEANNIE Called and left detailed message for patient to call to schedule procedure with pain management. Will follow up. Patient provided with direct extension to reach surgical coordinators. If patient calls back, please transfer to [phone]. * Telephone Encounter - Kiara Dhaliwal RN [...] relief from today's block. documented in this encounterSelect [facility], [facility]01-05-2022 Evaluation note* Encounter Date Diagnosis Assessment Notes Treatment Notes Treatment Clinical Notes Oct, Hypotension, unspecified hypotension type (ICD-10 - I95.9) Oct, Risk for falls (ICD-10 - Z91.81) Oct, Diabetes (ICD-10 - E11.9) Oct, Neuropathy (ICD-10 - G62.9) Oct, Failed back syndrome (ICD-10 - M96.1) Oct, Parkinsonism (ICD-10 - G20) [facility] Other 12-13-2021 Evaluation note* Encounter Date Diagnosis Assessment Notes Treatment Notes Treatment Clinical Notes Sep, Parkinsonism (ICD-10 - G20) [facility] Other 11-16-2021 Evaluation note* Encounter Date Diagnosis Assessment Notes Treatment Notes Treatment Clinical Notes Aug, Benign prostatic hyperplasia with lower urinary tract symptoms (ICD-10 - N40.1) [facility] Other 11-09-2021 Evaluation note* Encounter Date Diagnosis [...] I strongly recommend the patient contact his poultry hatchery manager to be evaluated. 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 [facility] Other 10-28-2020 History of Present illness Narrative* [...] 15, 2020 8:27 AM documented in this encounterSelect [facility], Inc08-28-2020 History of Present illness Narrative* Peace Block CT (Ct) - 06/15/2020 9:00 AM EDT Radiology Service [...] 15, 2020 9:03 AM documented in this encounterSelect [facility], Inc02-19-2018 History of Past illness Narrative* Problem Noted Date Resolved Date Ulcerative lesion 12/07/2017 07/21/2019 Glenohumeral arthritis 07/17/2016 9 SPRAIN OF NECK (30/) 03/06/2004 07/21/20 19 Brachial neuritis or radiculitis 03/06/2004 12/22/2018 Carpal tunnel syndrome 03/06/2004 9 documented as of this encounter (statuses as of 01/28/2022) [facility] History of Past illness Narrative* Problem Noted Date Resolved Date Ulcerative lesion 12/07/2017 07/21/2019 Glenohumeral arthritis 07/17/2016 9 Urgency of urination 07/31/2006 12/05/2022 SPRAIN OF NECK () 03/06/2004 07/21/20 Brachial neuritis or radiculitis 03/06/2004 12/22/2018 Carpal tunnel syndrome 03/06/2004 9 documented as of this encounter (statuses as of 12/06/2022) [facility] History of Past illness Narrative* Problem Noted Date Resolved Date Ulcerative lesion 12/07/2017 07/21/2019 Glenohumeral arthritis 07/17/2016 9 Urgency of urination 07/31/2006 12/05/2022 SPRAIN OF NECK () 03/06/2004 07/21/20 Brachial neuritis or radiculitis 03/06/2004 12/22/2018 Carpal tunnel syndrome 03/06/2004 9 documented as of this encounter (statuses as of 12/25/2022) [facility] History of Past illness Narrative* Problem Noted Date Diagnosed Date Resolved Date Ulcerative lesion 12/07/2017 07/21/2019 Glenohumeral arthritis 07/17/201612/22 Urgency of urination 07/31/2006 023 SPRAIN OF NECK () 03/06/200412/2018 Brachial neuritis or radiculitis 03/06/2004 12/22/2018 Carpal tunnel syndrome 03/06/200412/22 documented as of this encounter (statuses as of 05/29/2023) [facility] History of Past illness Narrative* Problem Noted Date Diagnosed Date Resolved Date Ulcerative lesion 12/07/2017 07/21/2019 Glenohumeral arthritis 07/17/201612/22 Urgency of urination 07/31/2006 023 SPRAIN OF NECK () 03/06/200412/2018 Brachial neuritis or radiculitis 03/06/2004 12/22/2018 Carpal tunnel syndrome 03/06/200412/22 documented as of this encounter (statuses as of 05/29/2023) [facility] History of Past illness Narrative* Problem Noted Date Diagnosed Date Resolved Date Ulcerative lesion 12/07/2017 07/21/2019 Glenohumeral arthritis 07/17/201612/22 Urgency of urination 07/31/2006 023 SPRAIN OF NECK () 03/06/200412/2018 Brachial neuritis or radiculitis 03/06/2004 12/22/2018 Carpal tunnel syndrome 03/06/200412/22 documented as of this encounter (statuses as of 05/29/2023) [facility] History general Narrative - Reported* Type Description Date Medical History 06/07/12 Stress Test [facility] Medical History 2008-colonoscopy wit h Dr. Ordonez; [...] total hip-CC 04/10/20 Hospitalization History SEE ABOVE [facility] Other 08-20-2012 History general Narrative - Reported* [...] Harry stevens Medical History Right total hip-04/10/20 Surgical History [...] Roman hinkle 10/2021 Hospitalization History SEE ABOVE [facility] Other 08-20-2012 History general Narrative - Reported* [...] Roman hinkle 10/2021 Hospitalization History SEE ABOVE [facility] Other 08-20-2012 History general Narrative - Reported* Type Description Date Medical History 06/07/12 Stress Test [facility] Medical History 2008-colonoscopy wit h Dr. Ordonez; [...] lumbar surgery. 09-18-10 Surgical History back surgery 9- Surgical History left knee surgery 06/2013 Surgical [...] Dr Romo 01/2022 Hospitalization History SEE ABOVE [facility] Other 08-20-2012 History general Narrative - Reported* [...] History SEE ABOVE Hospitalization History pneumonia 10/2022 [facility] Other 08-20-2012 History general Narrative - Reported* [...] History SEE ABOVE Hospitalization History pneumonia 10/2022 [place] Other Chief complaint Narrative - ReportedALISIA CORREA is being seen for a consultation for chest pain.-Formerly [facility] [address] DO Work Phone: Chief complaint Narrative - Reported* ALISIA CORREA is being seen for a consultation for chest pain. * 60-year-old white male who is being evaluated at the request of PCP for symptoms of dyspnea and chest pain with syncope. The patient appears older than his stated age and unfortunately has history ofParkinson's disease followed by neurology from [place] on medical therapy. The patient has been [...] 7 Parkinson's disease followed by neurology from [place]. * 8 obesity, encouraged the patient to reduce caloric consumption * 9 possible PAD, patient is following up with podiatry [address] Work Phone: Evaluation + Plan note Future Appointments Appointment Date:02/20/2023 09:15:00 AM Scheduled Provider:Fidel IBARRA MD Location:[facility] Appointment Type:URO Office Visit [facility] evaluation + Plan note Future Appointments Appointment Date:03/20/2023 09:00:00 AM Scheduled Provider: Location:[facility] Appointment Type:URO Nurse Visit [facility] evaluation + Plan note Future Appointments Appointment Date:04/17/2023 09:00:00 AM Scheduled Provider: Location:[facility] Appointment Type:URO Nurse Visit [facility] evaluation + Plan note Future Appointments Appointment Date:05/25/2023 11:00:00 AM Scheduled Provider: Location:[facility] Appointment Type:URO Nurse Visit [facility] evaluation + Plan note Future Appointments Appointment Date:06/19/2023 11:00:00 AM Scheduled Provider: Location:[facility] Appointment Type:URO Nurse Visit [facility] evaluation + Plan note Future Appointments Appointment Date:06/19/2023 11:00:00 AM Scheduled Provider: Location:[facility] Appointment Type:URO Nurse Visit Diagnostic Tests Pending * [facility]ments Appointment Date:07/17/2023 11:00:00 AM Scheduled Provider: Location:[facility] Appointment Type:URO Nurse Visit [facility] evaluation + Plan note Future Appointments Appointment Date:07/17/2023 11:00:00 AM Scheduled Provider: Location:[facility] Appointment Type:URO Nurse Visit Diagnostic Tests Pending * [facility]ments Appointment Date:08/14/2023 11:00:00 AM Scheduled Provider: Location:[facility] Appointment Type:URO Nurse Visit [facility] evaluation + Plan note Future Appointments Appointment Date:08/14/2023 11:00:00 AM Scheduled Provider: Location:[facility] Appointment Type:URO Nurse Visit Diagnostic Tests Pending * [facility]ments Appointment Date:09/14/2023 11:00:00 AM Scheduled Provider: Location:[facility] Appointment Type:URO Nurse Visit [facility] evaluation + Plan note Future Appointments Appointment Date:10/20/2023 11:00:00 AM Scheduled Provider: Location:[facility] Appointment Type:URO Nurse Visit [facility] evaluation + Plan note Future Appointments Appointment Date:11/16/2023 11:00:00 AM Scheduled Provider: Location:[facility] Appointment Type:URO Nurse Visit Diagnostic Tests Pending * [facility] App[facility]ments Appointment Date:12/14/2023 11:30:00 AM Scheduled Provider: Location:[facility] Appointment Type:URO Nurse Visit [facility] evaluation + Plan note Future Appointments Appointment Date:02/01/2024 11:00:00 AM Scheduled Provider: Location:[facility] Appointment Type:URO Nurse Visit [facility] evaluation + Plan note Future Appointments Appointment Date:02/22/2024 11:00:00 AM Scheduled Provider: Location:[facility] Appointment Type:URO Nurse Visit [facility] evaluation + Plan note Future Appointments Appointment Date:03/15/2024 10:30:00 AM Scheduled Provider: Location:[facility] Appointment Type:URO Nurse Visit [facility] evaluation + Plan note Future Appointments Appointment Date:03/15/2024 10:30:00 AM Scheduled Provider: Location:[facility] Appointment Type:URO Nurse Visit Diagnostic Tests Pending * [facility] App[facility]ments Appointment Date:04/05/2024 02:40:00 PM Scheduled Provider:TITI Duncan APRN, [place] Location:[facility] Appointment Type:URO Office Visit [facility] evaluation + Plan note Future Appointments Appointment Date:04/26/2024 11:30:00 AM Scheduled Provider:TITI Duncan APRN, [place] Location:[facility] Appointment Type:URO Office Visit [facility] evaluation + Plan note Future Appointments Appointment Date:04/26/2024 11:30:00 AM Scheduled Provider:TITI Duncan APRN, [place] Location:[facility] Appointment Type:URO Office Visit Diagnostic Tests Pending * [facility] App[facility]ments Appointment Date:06/30/2024 11:00:00 AM Scheduled Provider:Madeline Harry Location:[facility] Appointment Type:URO Office Visit [facility] evaluation + Plan note Future Appointments Appointment Date:06/30/2024 11:00:00 AM Scheduled Provider:Madeline Harry Location:[facility] Appointment Type:URO Office Visit Diagnostic Tests Pending * Urine Culture 06/14/24 [facility] + Plan note Future Appointments Appointment Date:08/09/2024 02:30:00 PM Scheduled Provider:TITI Duncan APRN, [place] Location:[facility] Appointment Type:URO Office Visit [facility] evaluation + Plan note Future Appointments Appointment Date:08/30/2024 11:40:00 AM Scheduled Provider:LYN MACE PA-C Location:[facility] Appointment Type:URO Office Visit [facility] evaluation + Plan note Future Appointments Appointment Date:09/27/2024 11:20:00 AM Scheduled Provider:LYN MACE PA-C Location:[facility] Appointment Type:URO Office Visit [facility] evaluation + Plan note Future Appointments Appointment Date:07/19/2024 12:30:00 PM Scheduled Provider:TITI Duncan APRN, [place] Location:[facility] Appointment Type:URO Office Visit [facility] evaluation + Plan note Future Appointments Appointment Date:10/28/2024 11:20:00 AM Scheduled Provider:LYN MACE PA-C Location:[facility] Appointment Type:URO Office Visit Diagnostic Tests Pending * Urine Culture 09/27/24 [facility] + Plan note Future Appointments Appointment Date:10/28/2024 11:20:00 AM Scheduled Provider:LYN MACE PA-C Location:[facility] Appointment Type:URO Office Visit [facility] evaluation + Plan note Future Appointments Appointment Date:11/25/2024 11:20:00 AM Scheduled Provider:LYN MACE PA-C Location:[facility] Appointment Type:URO Office Visit [facility] evaluation + Plan note Future Appointments Appointment Date:12/27/2024 11:20:00 AM Scheduled Provider:LYN MACE PA-C Location:[facility] Appointment Type:URO Complex Office Visit [facility] evaluation + Plan note Future Appointments Appointment Date:12/27/2024 11:20:00 AM Scheduled Provider:LYN MACE PA-C Location:[facility] Appointment Type:URO Complex Office Visit Diagnostic Tests Pending * Urine Culture 11/28/24 [facility] evaluation + Plan note Future Appointments Appointment Date:04/24/2025 10:00:00 AM Scheduled Provider:LYN MACE PA-C Location:[facility] Appointment Type:URO Office Visit Appointment Date:05/15/2025 10:00:00 AM Scheduled Provider:LYN MACE PA-C Location:[facility] Appointment Type:URO Office Visit [facility] evaluation + Plan note Future Appointments Appointment Date:05/15/2025 10:00:00 AM Scheduled Provider:LYN MACE PA-C Location:[facility] Appointment Type:URO Office Visit [facility] evaluation + Plan note Future Appointments Appointment Date:06/14/2025 12:30:00 PM Scheduled Provider:Michelle Mahoney PA-C Location:[facility] Appointment Type:URO Office Visit [facility] evaluation + Plan note Future Appointments Appointment Date:08/02/2025 02:30:00 PM Scheduled Provider:Michelle Mahoney PA-C Location:[facility] Appointment Type:URO Office Visit [facility] evaluation note* Diagnosis Lumbar stenosis with neurogenic claudication- Primary Spinal stenosis, lumbar region, with neurogenic claudication Idiopathic hypotension Hypotension, unspecified documented in this encounter [employer] Work Phone: evaluation noteNo [facility] [employer] Other Evaluation note* Diagnosis NO SHOW- Primary [facility]* Diagnosis Postlaminectomy syndrome of lumbar region Postlaminectomy syndrome, lumbar region Pain in thoracic spine Spinal cord stimulator status Other postprocedural status documented [facility] this [facility]* Diagnosis Radiculopathy of lumbar region Thoracic or lumbosacral neuritis or radiculitis, unspecified documented [facility]* Diagnosis Pain in thoracic spine S/P insertion of spinal cord stimulator documented in this encounter [facility] note* Diagnosis Onset Date Resolution Status Diarrhea acute Incontinence of bowel acute Mucus in stool acute Nausea acute [facility] Work Phone: Evaluation note* Diagnosis Onset Date Resolution Status Diarrhea acute Incontinence of bowel acute Mucus in stool acute Nausea acute Chronic pain syndrome acute Hyperlipidemia acute Hypotestosteronism acute Mucus in stool acute Neurogenic bladder acute Neurogenic bowel acute Suprapubic catheter acute [facility] Work Phone: Evaluation note* Diagnosis Onset Date Resolution Status Diarrhea acute DMII (diabetes mellitus, type 2) acute Frequent headaches acute Mucus in stool acute Parkinsons acute Sepsis acute Suprapubic catheter acute [facility] Work Phone: Evaluation note* Diagnosis Encounter for [...] fluctuating manifestations (CMS-HCC) [facility]* Diagnosis Encounter for screening for abdominal aortic aneurysm (AAA) in patient 50 years of age or older with history of smoking- Primary Critical limb ischemia of both lower extremities with gangrene (CMS-HCC) Abdominal aortic aneurysm dissection (CMS-HCC) Dissection of aorta, abdominal Critical limb ischemia of both lower extremities with gangrene (CMS-HCC)- Primary Orthostasis Orthostatic hypotension documented [facility] this encounter [facility]* Diagnosis Encounter for screening [...] (CMS-HCC) Paralysis agitans [facility] Diagnosis Encounter for screening [...] [facility] assessment information available [facility] Work Phone: Evaluation note* Diagnosis Parkinson's disease Paralysis agitans [facility] Diagnosis Parkinson's disease Paralysis agitans documented in this encounter [facility]* Diagnosis Critical limb ischemia of both lower extremities with gangrene (CMS-HCC)- Primary [facility]* Diagnosis Parkinson's disease without dyskinesia or fluctuating manifestations- Primary Spinal stenosis of lumbar region with neurogenic claudication Anxiety Anxiety state, unspecified [facility] Diagnosis Orthostasis Orthostatic hypotension documented in this encounter [facility]* Diagnosis Spinal stenosis of lumbar region with neurogenic claudication documented in this encounter [facility]* Diagnosis Migraine without aura and without status migrainosus, not intractable [facility]* Diagnosis Encounter for [...] Parkinson's disease (CMS-HCC) [facility] with neurogenic claudication documented [facility] this encounter [facility]* Diagnosis Encounter for screening [...] (CMS-HCC) Paralysis agitans documented [facility]* Diagnosis Encounter for screening for abdominal aortic aneurysm (AAA) in patient 50 years of age or older with history of smoking- Primary Critical limb ischemia of both lower extremities with gangrene (CMS-HCC) Abdominal aortic aneurysm dissection (CMS-HCC) Dissection of aorta, abdominal Critical limb ischemia of both lower extremities with gangrene (CMS-HCC)- Primary Orthostasis Orthostatic hypotension documented [facility] this encounter [facility]* Diagnosis Encounter for screening [...] migrainosus, not intractable documented [facility] encounter [facility]* Diagnosis Encounter for screening [...] with neurogenic claudication documented [facility] encounter [facility]* Diagnosis Onset Date Resolution Status Admit Date Depression acute December 29 1:14pm Diabetes acute December 29 1:14pm Migraine acute December 29 1:14pm Parkinsons acute December 29 1:14pm Suprapubic catheter acute December 29, 2024 1:14pm [facility] Work Phone: Evaluation note* Diagnosis Encounter for [...] Other cerebellar ataxia documented [facility] this encounter [facility]* Diagnosis Encounter for screening [...] with gangrene (CMS-HCC) documented [facility] encounter [facility]* Diagnosis Encounter for screening [...] the basal ganglia documented in this encounter [facility]* Diagnosis Encounter for screening [...] with neurogenic claudication documented [facility] encounter [facility]* Diagnosis Encounter for screening [...] Dysphagia, unspecified type documented [facility] this encounter [facility]* Diagnosis Encounter for screening [...] headache type- Primary documented in this encounter [facility]* Diagnosis Encounter for screening [...] with neurogenic claudication [facility] N[facility] No data available for this section [facility] Hospital Discharge instructions No data available for this section [facility] InstructionsNot on filedocumented in this [...] this section [facility] reason for referral (narrative)* Reason Home physical therap y evaluation and treatment requested. Diagnosis 1 Hypotension, unspeci fied hypotension type (I95.9) Diagnosis 2 Diabetes (E11.9) Diagnosis 3 Parkinsonism (G20) Diagnosis 4 Neuropathy (G62.9) Diagnosis 5 Failed back syndrome (M96.1) Diagnosis 6 Risk for falls (Z91. 81) Referral Organization [facility] Referring Provider First Name Ellen Referring Provider Last Name Kuns Referring Provider Specialty Family Prac candice [facility]erred Organization [facility] Referred Address [address] [place], [place],[address] Referred Provider Specialty Physical The rapist Referral Priority Routine [facility] Other Reason for referral (narrative)* Reason Patient is needing i n office consultation for change in stool and nausea. Please call patient with appointment date and time Diagnosis 1 Change in stool (R19 .5) Diagnosis 2 Nausea (R11.0) Referral Organization [facility] Referring Provider First Name Ellen Referring Provider Last Name Leyda Referring Provider Specialty Family Prac candice Referred Organization [facility] Referred Address [address],[address] Referred Provider Specialty Gastroentero logy Referral Priority Routine [facility] Other Regazq for visit Narrative* Auth/Cert Specialty Diagnoses / Procedures Referred By Agustina molina Referred To Contact Diagnoses Lumbosacral spinal stenosis LUMBOSACRAL SPINAL STENOSIS Procedures POSTERIOR SEGMENTAL INSTRUMENTATION 3-6 VRT SEG MI INSJ BIOMCHN DEV INTERVERTEBRAL DSC SPC W/ARTHRD MI ALLOGRAFT FOR SPINE SURGERY ONLY MORSELIZED MI ARTHRODESIS COMBINED TQ 1NTRSPC LUMBAR MI ALEGRIA FACETEC/FORAMOT DRG ARTHRD LUMBAR 1 VRT SGM MI ALEGRIA FACETEC/FORAMOT DRG ARTHRD LMBR EA ADDL SGM MI ARTHRODESIS PST/PSTLAT TQ 1NTRSPC EA ADDL NTRSPC L2-S1 DECOMPRESSION L2-S1 POSTERIOR FUSION WITH ILIAC BOLTS, L5-S1 TLIF Frank Oden MD [address] [place] [address] [place] [address] [employer] [address] [place] [address] Referral ID Status Reason Start Date Expiration Date Visits Re quested Visits Authorized [id number] [employer] Phone: Summary Purpose Family History No Family [...] FoundDocuments on File Type Date Recorded 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 Note HNO ID: [id number] Author: Jason Guevara Jr. Service: Orthopaedic Surgery [...] (more content not included)... Note HNO ID: [id number] Author: Judy Mathews Service: ? Author Type: Nurse Avionics Electrical Engineer Type: Anesthesia Procedure Notes Filed: 05/03/2020 1:32 PM Note Text: ANESTHESIOLOGY PROCEDURE NOTE Airway General Information Procedure Start Time/Medication Administration: 05/03/2020 12:55 PM Patient location during procedure: OR Staffing TELECASTING TECHNICIAN: Kathleen Mathews Performed by: APRIL Indications [...] not included)... Procedure Findings Note HNO ID: [id number] Author: Judy Mathews Service: ? 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) Referral Organization [facility] Referring Provider First Name Ellen Referring Provider Last Name Leyda Referring Provider Specialty Family Prac candice Referred Organization [facility] Referred Provider Yifan Gama Referred Address [address],[address] Referred Provider Specialty Gastroentero logy Referral Priority Routine General Notes Tomeka Hussein 021 10:28:40 AM >Graciela, is this suppose to be urgentVeGraciela farley 08/06/2021 10:49:26 AM > no, sorry must have accidentally made urgent :) Specialty Diagnoses / Procedures Referred By Agustina molina Referred To Contact Rehabilitation Diagnoses Parkinson's disease without dyskinesia or fluctuating manifestations Reena Cervantes, FARRAH-GED INSTRUCTOR [address] [place] [id number] Referral ID Status Reason Start Date Expiration Date Visits Requested Visits Authorized [id number] Pending Review Specialty Services Required 11/16/2023 11/15/2024 1 1 Specialty Diagnoses / Procedures Referred By Agustina molina Referred To Contact Speech Pathology Diagnoses Parkinson's disease without dyskinesia or fluctuating manifestations Reena Cervantes, FARRAH-GED INSTRUCTOR [address] [place] [address] Referral ID Status Reason Start Date Expiration Date Visits Requested Visits Authorized [id number] Pending Review Specialty Services Required 11/16/2023 11/15/2024 1 1 Specialty Diagnoses / Procedures Referred By Contac t Referred To Contact Diagnoses Critical limb ischemia of both lower extremities with gangrene ([facility]) Procedures Vas art doppler lwr bilat mult lev/PVR Heidy Marin MD [address], [address] [address] Referral ID Status Reason Start Date Expiration Date V isits Requested Visits Authorized [id number] Pending Review 01/28/2024 01/27/2025 1 1 Specialty Diagnoses / Procedures Referred By Contac t Referred To Contact Diagnoses Encounter for screening for abdominal aortic aneurysm (AAA) in patient 50 years of age or older with history of smoking Abdominal aortic aneurysm dissection ([facility]) Procedures Vas aorta/iliac duplex complete Heidy Marin MD [address], [address] [address] Referral ID Status Reason Start Date Expiration Date V isits Requested Visits Authorized [id number] Pending Review 01/28/2024 01/27/2025 1 1 Health [...] bowel Suprapubic catheter Chief Complaint Amb Documentation hospital/[facility] follow up Reason for Visit Diarrhea DMII [...] Recurrent UTI January 30, 2025 1:5 5pm Chief Complaint Admit Date GIB s/t anastomotic leak s/p kenan-en-rev ersal June 28, 2025 1:44pm GIB s/t anastomotic leak s/p kenan-en-rev ersal July 05, 2025 12:00am GIB s/t anastomotic leak s/p kenan-en-rev ersal July 12, 2025 12:00am Reason for Visit Admit Date Autonomic dysfunction June 28 1:44pm Chronic pain syndrome June 28 1:44pm Chronic suprapubic catheter June 282024 1:44pm COPD (chronic obstructive pulmonary dise ase) June 28, 2025 1:44pm Diabetes June 28, 2025 1:44pm Diabetic neuropathy associat ed with type 2 diabetes mellitus June 28, 2025 1:44pm DMII (diabetes mellitus, type 2) Septemb 2024 1:44pm GI bleed June 28, 2025 1:44pm Hyperlipidemia June 28, 2025 1:44pm Impaired mobility June 28, 2025 1:44pm Neurogenic bladder June 28, 2025 1:44pm Neurogenic bowel June 28, 2025 1:44pm Obesity June 28, 2025 1:44pm Parkinsons June 28, 2025 1:44pm Recurrent UTI June 28, 2025 1:44pm Additional Source Comments (unrecognized sect ion and [...] section and content) DATE CREATED AUTHOR 04/09/2018 [facility] DATE CREATED AUTHOR AUTHOR'S ORGANIZ ATION 04/14/2018 [facility] DATE CREATED AUTHOR AUTHOR'S ORGANIZ ATION 04/14/2018 [facility] DATE CREATED AUTHOR AUTHOR'S ORGANIZ ATION 05/12/2020 [facility] DATE CREATED AUTHOR AUTHOR'S ORGANIZ ATION 09/17/2020 [facility] DATE CREATED AUTHOR AUTHOR'S ORGANIZ ATION 08/18/2021 [facility] DATE CREATED AUTHOR AUTHOR'S ORGANIZ ATION 09/10/2021 [facility] DATE CREATED AUTHOR AUTHOR'S ORGANIZ ATION 02/23/2022 [facility] DATE CREATED AUTHOR AUTHOR'S ORGANIZ ATION 12/15/2022 [facility] DATE CREATED AUTHOR AUTHOR'S ORGANIZ ATION 12/26/2022 [facility] DATE CREATED AUTHOR AUTHOR'S ORGANIZ ATION 03/29/2023 [facility] DATE CREATED AUTHOR AUTHOR'S ORGANIZ ATION 04/08/2024 [facility] DATE CREATED AUTHOR AUTHOR'S ORGANIZ ATION 04/24/2024 [facility] DATE CREATED AUTHOR AUTHOR'S ORGANIZ ATION 07/02/2024 [facility] DATE CREATED AUTHOR AUTHOR'S ORGANIZ ATION 10/02/2024 [facility] DATE CREATED AUTHOR AUTHOR'S ORGANIZ ATION 10/31/2024 [facility] DATE CREATED AUTHOR AUTHOR'S ORGANIZ ATION 12/04/2024 [facility] DATE CREATED AUTHOR AUTHOR'S ORGANIZ ATION 12/29/2024 [facility] DATE CREATED AUTHOR AUTHOR'S ORGANIZ ATION 03/17/2025 [facility] DATE CREATED AUTHOR AUTHOR'S ORGANIZ ATION 03/18/2025 [facility] DATE CREATED AUTHOR AUTHOR'S ORGANIZ ATION 04/04/2025 [facility] DATE CREATED AUTHOR AUTHOR'S ORGANIZ ATION 07/20/2025 [facility] DATE CREATED AUTHOR AUTHOR'S ORGANIZ ATION 07/22/2025 [facility] DATE CREATED AUTHOR AUTHOR'S ORGANIZ ATION 07/22/2025 [facility] Source Comments (unrecognize d section and content) In the event this informatio n is protected by the Federal Confidentiality of Alcohol and Drug Abuse Patient Records regulations: The Federal rules restrict any use of the information to criminally investigate or prosecute any alcohol or drug abuse patient.[facility] the event this information is protected by the Federal Confidentiality of Alcohol and Drug Abuse Patient Records regulations: The Federal rules restrict any use of the information to criminally investigate or prosecute any alcohol or drug abuse patient.[facility] the event this information is protected by the Federal Confidentiality of Alcohol and Drug Abuse Patient Records regulations: The Federal rules restrict any use of the information to criminally investigate or prosecute any alcohol or drug abuse patient.[facility] the event this information is protected by the Federal Confidentiality of Alcohol and Drug Abuse Patient Records regulations: The Federal rules restrict any use of the information to criminally investigate or prosecute any alcohol or drug abuse patient.[facility] the event this information is protected by the Federal Confidentiality of Alcohol and Drug Abuse Patient Records regulations: The Federal rules restrict any use of the information to criminally investigate or prosecute any alcohol or drug abuse patient.[facility] the event this information is protected by the Federal Confidentiality of Alcohol and Drug Abuse Patient Records regulations: The Federal rules restrict any use of the information to criminally investigate or prosecute any alcohol or drug abuse patient.[facility] Reason for Visit (unrecogniz ed section and [...] Reason Onset Date Comments New Patient 06/06/2025 Reason Onset Date Comments Med Refill 07/13/2025 Care Teams (unrecognized sec tion and content) Label Press Operator Relationship Specialty Start Date End Date MichiEllen guzmáner [address] [place] [phone] PCP - General 06/10/02 Label Press Operator Relationship Specialty Start Date End Date Ellen Crabtree DO PCP - General Family Medicine 01/23/22 Label Press Operator Relationship Specialty Start Date End Date MichiEllen guzmáner [address] [place] [phone] PCP - General 06/10/02 Label Press Operator Relationship Specialty Start Date End Date MichiEllen guzmáner [address] [place], [place] [phone] PCP - General 06/10/02 Label Press Operator Relationship Specialty Start Date End Date MichidavionBarbiett Boogie [address] [place], [place] [phone] PCP - General 06/10/02 Label Press Operator Relationship Specialty Start Date End Date Ellen Crabtree Boogie [address] [place], [place] [phone] PCP - General 06/10/02 Label Press Operator Relationship Specialty Start Date End Date MichiEllen guzmán Boogie [address] [place], [place] [phone] PCP - General 06/10/02 Team Status: Active [...] Status: Active Member Role Status Dates Ellen Kuns , DO Primary Care Provider Active Sta [...] April 24, 2024 End: April 27, 2024 Vivian Villarreal DO Attending Provider Active Sta rt: [...] June 21, 2024 End: June 21, 2024 Label Press Operator Relationship Specialty Start Date End Date Ellen Crabtree DO [address] [place], [place] [phone] PCP - General Family Medicine 01/17/21 Label Press Operator Relationship Specialty Start Date End Date Ellen Crabtree DO [address] [place], [place] [phone] PCP - General Family Medicine 01/17/21 Label Press Operator Relationship Specialty Start Date End Date Ellen Crabtree DO [address] [place], [place] [phone] PCP - General Family Medicine 01/17/21 Label Press Operator Relationship Specialty Start Date End Date Ellen Crabtree DO [address] [place], [place] [phone] PCP - General Family Medicine 01/17/21 Label Press Operator Relationship Specialty Start Date End Date Ellen Crabtree DO [address] [place], [place] [phone] PCP - General Family Medicine 01/17/21 Label Press Operator Relationship Specialty Start Date End Date Ellen Crabtree DO [address] [place], [place] [phone] PCP - General Family Medicine 01/17/21 Label Press Operator Relationship Specialty Start Date End Date Ellen Crabtree DO [address] [place] [phone] PCP - General Family Medicine 01/17/21 Team [...] November 28, 2024 End: November 28, 2024 Label Press Operator Relationship Specialty Start Date End Date Ellen Crabtree DO [address] [place] [phone] PCP - General Family Medicine 01/17/21 Label Press Operator Relationship Specialty Start Date End Date Ellen Crabtree DO [address] [place] [phone] PCP - General Family Medicine 01/17/21 Label Press Operator Relationship Specialty Start Date End Date Ellen Crabtree DO [address] [place] [phone] PCP - General Family Medicine 01/17/21 Label Press Operator Relationship Specialty Start Date End Date Ellen Crabtree DO [address] [place] [phone] PCP - General Family Medicine 01/17/21 Label Press Operator Relationship Specialty Start Date End Date Ellen Crabtree DO [address] [place] [phone] PCP - General Family Medicine 01/17/21 Label Press Operator Relationship Specialty Start Date End Date Ellen Crabtree DO [address] [place] [phone] PCP - General Family Medicine 01/17/21 Label Press Operator Relationship Specialty Start Date End Date Ellen Crabtree DO [address] [place] [phone] PCP - General Family Medicine 01/17/21 Label Press Operator Relationship Specialty Start Date End Date Ellen Crabtree DO PCP - General Family Medicine 01/17/21 Label Press Operator Relationship Specialty Start Date End Date Ellen Crabtree DO PCP - General Family Medicine 01/17/21 Label Press Operator Relationship Specialty Start Date End Date Ellen Crabtree DO PCP - General Family Medicine 01/17/21 Label Press Operator Relationship Specialty Start Date End Date Ellen Crabtree DO [address] [place], [place] [phone] PCP - General Family Medicine 01/17/21 Team [...] Provider Active Sta rt: December 13, 2024 Vviian Villarreal DO Attending Provider Active Sta rt: [...] February 15, 2025 End: February 15, 2025 Label Press Operator Relationship Specialty Start Date End Date Ellen Crabtree DO [address] [place] [address] PCP - General Family Medicine 01/17/21 Label Press Operator Relationship Specialty Start Date End Date Ellen Crabtree DO [address] [place] [address] PCP - General Family Medicine 01/17/21 Label Press Operator Relationship Specialty Start Date End Date Ellen Crabtree DO [address] [place] [address] PCP - General Family Medicine 01/17/21 Label Press Operator Relationship Specialty Start Date End Date Ellen Crabtree DO [address] [place] [address] PCP - General Family Medicine 01/17/21 Label Press Operator Relationship Specialty Start Date End Date Ellen Crabtree DO [address] [place] [address] PCP - General Family Medicine 01/17/21 Label Press Operator Relationship Specialty Start Date End Date Ellen Crabtree DO [address] [place] [address] PCP - General Family Medicine 01/17/21 Team Status: Active Member Role Status Dates Ellen Crabtree DO Primary Care Provider Active Sta rt: May 29, 2025 Ellen Crabtree DO Attending Provider Active Start: May 29, 2025 Team Status: Active Member Role Status Dates Ellen Crabtree DO Primary Care Provider Active Sta rt: June 15, 2025 Abdoulaye Enrique DO Attending Provider Active Start: June 15, 2025 Team Status: Active Member Role Status Dates Ellen Crabtree DO Primary Care Provider Active Sta rt: June 28, 2025 Steven Gonzales MD Admit Provider Active Start: S diyatembalirio 2024 Steven Gonzales MD Other Provider Active Start: S eptember 2024 Aleshia Hooks , ALFONSO Other Provider Active Star t: June 28, 2025 Rose Vincent , ALFONSO Other Provider Active Start : June 28, 2025 Nellie Johnson RN Other Provider Active Star t: June 28, 2025 Kathy Lewis , ALFONSO Other Provider Active Start: S eptember 2024 Lorraine Valle , ALFONSO Other Provider Active Start: Se pt2024 Dara Gonzales , ALFONSO Other Provider Active Start: S eptembalirio 2024 Sandy Carlson MD Other Provider Active Start: June 28, 2025 Tai Richardson DO Other Provider Active Start : June 28, 2025 Harvey Pat MD Other Provider Active Start : June 28, 2025 Skinny Jensen DO Other Provider Active Start: June 28, 2025 David Logan MD Other Provider Active Start: June 28, 2025 Jacinta Sorensen MD Other Provider Active Start : June 28, 2025 Romel Rojas DO Other Provider Active St art: June 28, 2025 Dillan Rodriguez MD Other Provider Active Start: S eptember 2024 Miryam Bell APRN Other Provider Active Start: June 28, 2025 Lmaont Sky MD Other Provider Active Start: June 28, 2025 Sophie Trujillo MD Other Provider Active Start: June 28, 2025 Vandana Kerr MD Other Provider Active Start: June 28, 2025 Romel Arevalo DO Other Provider Active Start: June 28, 2025 Emelina Ojeda MD Other Provider Active Start: 2024 Enrico Hammer MD Other Provider Active Start: Jun Elli Puckett PT SKILLED-C Other Provider Active St art: June 28, 2025 Ferny Vazquez APRN Other Provider Active Star t: June 28, 2025 Quintin Hanley MD Other Provider Active Start: June 28, 2025 Arvind Sanders MD Other Provider Active Start: 2024 Gunnar Samano MD Other Provider Active Star t: June 28, 2025 Hamzah Young DO Other Provider Active Start : June 28, 2025 Nicolasa Perez APRN Other Provider Active Start: June 28, 2025 Van Orozco DO Other Provider Active Start: June 28, 2025 Petty Pulido MD Other Provider Active Sta rt: June 28, 2025 Paradise Arias APRN Other Provider Active Start : June 28, 2025 Paula Webb APRN Other Provider Active St art: June 28, 2025 Radha Villalta MD Other Provider Active Start: S eptember 2024 Chato Rodriguez MD Other Provider Active S tart: June 28, 2025 Sergio Shah DO Other Provider Active Start: June 28, 2025 Jama Espinoza MD Other Provider Active Start: June 28, 2025 Joshua Martin MD Other Provider Active Start: June Maribeth Zhang APRN Other Provider Active Star t: June 28, 2025 Jv Camacho MD Other Provider Active Start: S eptember 2024 Steven Brenner MD Other Provider Active Start: June 28, 2025 Dillan Arce MD Other Provider Active Start : June 28, 2025 Jesus Watson MD Other Provider Active Start: S ep2024 Adali Tineo APRN Other Provider Active Sta rt: June 28, 2025 Ruel Goncalves APRN Other Provider Active Start: June 28, 2025 Fidelia Tarango , ALFONSO Other Provider Active Start: S ep2024 Heriberto Campos MD Attending Provider Active Start: June 28, 2025 Team Status: Active Member Role Status Aneta Crabtree , Primary Care Provider Active Sta rt: July 05, 2025 Steven Gonzales MD Admit Provider Active Start: S eper 2024 Steven Gonzales MD Other Provider Active Start: S ep2024 Aleshia Hooks , ALFONSO Other Provider Active Star t: July 05, 2025 Rose Vincent , ALFONSO Other Provider Active Start : July 05, 2025 Nellie Johnson RN Other Provider Active Star t: July 05, 2025 Kathy Lewis RN Other Provider Active Start: S eper 2024 Lorraine Valle , ALFONSO Other Provider Active Start: Se ptember 2024 Dara Gonzales , ALFONSO Other Provider Active Start: S ep2024 Sandy Carlson MD Other Provider Active Start: July 05, 2025 Tai Richardson DO Other Provider Active Start : July 05, 2025 Harvey Pat MD Other Provider Active Start : July 05, 2025 Skinny Jensen DO Other Provider Active Start: July 05, 2025 David Logan MD Other Provider Active Start: July 05, 2025 Jacinta Sorensen MD Other Provider Active Start : July 05, 2025 Romel Rojas DO Other Provider Active St art: July 05, 2025 Dillan Rodriguez MD Other Provider Active Start: S ep2024 Miryam Bell APRN Other Provider Active Start: July 05, 2025 Lamont Sky MD Other Provider Active Start: July 05, 2025 Sophie Trujillo MD Other Provider Active Start: July 05, 2025 Vandana Kerr MD Other Provider Active Start: July 05, 2025 Romel Arevalo DO Other Provider Active Start: July 05, 2025 Emelina Ojeda MD Other Provider Active Start: 2024 Enrico Hammer MD Other Provider Active Start: Jun Elli Puckett , PT SKILLED-C Other Provider Active St art: July 05, 2025 Ferny Vazquez APRN Other Provider Active Star t: July 05, 2025 Quintin Hanley MD Other Provider Active Start: July 05, 2025 Arvind Sanders MD Other Provider Active Start: 2024 Gunnar Samano MD Other Provider Active Star t: July 05, 2025 Hamzah Young DO Other Provider Active Start : July 05, 2025 Nicolasa Perez APRN Other Provider Active Start: July 05, 2025 Van Orozco DO Other Provider Active Start: July 05, 2025 Petty Pulido MD Other Provider Active Sta rt: July 05, 2025 Paradise Arias APRN Other Provider Active Start : July 05, 2025 Paula Webb APRN Other Provider Active St art: July 05, 2025 Radha Villalta MD Other Provider Active Start: ep2024 Chato Rodriguez MD Other Provider Active S tart: July 05, 2025 Sergio Shah DO Other Provider Active Start: July 05, 2025 Jama Espinoza MD Other Provider Active Start: July 05, 2025 Joshua Martin MD Other Provider Active Start: June Maribeth Zhang APRN Other Provider Active Star t: July 05, 2025 Jv Camacho MD Other Provider Active Start: S eptember 2024 Steven Brenner MD Other Provider Active Start: July 05, 2025 Dillan Arce MD Other Provider Active Start : July 05, 2025 Jesus Watson MD Other Provider Active Start: S eptember 2024 Adali Tineo APRN Other Provider Active Sta rt: July 05, 2025 Ruel Goncalves APRN Other Provider Active Start: July 05, 2025 Fidelia Tarango , ALFONSO Other Provider Active Start: 2024 Heriberto Campos MD Attending Provider Active Start: July 05, 2025 Team Status: Active Member Role Status Aneta Crabtree DO Primary Care Provider Active Sta rt: July 12, 2025 Steven Gonzales MD Admit Provider Active Start: ep2024 Steven Gonzales MD Attending Provider Active Star t: July 12, 2025 Steven Gonzales MD Other Provider Active Start: 2024 Aleshia Hooks , ALFONSO Other Provider Active Star t: July 12, 2025 Rose Vincent , ALFONSO Other Provider Active Start : July 12, 2025 Nellie Johnson , ALFONSO Other Provider Active Star t: July 12, 2025 Kathy Lewis , ALFONSO Other Provider Active Start: 2024 Lorraine Valle RN Other Provider Active Start: Se ptember 2024 Dara Gonzales RN Other Provider Active Start: 2024 Sandy Carlson MD Other Provider Active Start: July 12, 2025 Tai Richardson DO Other Provider Active Start : July 12, 2025 Harvey Pat MD Other Provider Active Start : July 12, 2025 Skinny Jensen DO Other Provider Active Start: July 12, 2025 David Logan MD Other Provider Active Start: July 12, 2025 Jacinta Sorensen MD Other Provider Active Start : July 12, 2025 Romel Rojas DO Other Provider Active St art: July 12, 2025 Dillan Rodriguez MD Other Provider Active Start: 2024 Miryam Bell APRN Other Provider Active Start: July 12, 2025 Lamont Sky MD Other Provider Active Start: July 12, 2025 Sophie Trujillo MD Other Provider Active Start: July 12, 2025 Vandana Kerr MD Other Provider Active Start: July 12, 2025 Romel Arevalo DO Other Provider Active Start: July 12, 2025 Emelina Ojeda MD Other Provider Active Start: ptember 2024 Enrico Hammer MD Other Provider Active Start: Jun Elli Puckett , PT SKILLED-C Other Provider Active St art: July 12, 2025 Ferny Vazquez APRN Other Provider Active Star t: July 12, 2025 Quintin Hanley MD Other Provider Active Start: July 12, 2025 Arvind Sanders MD Other Provider Active Start: ptember 2024 Gunnar Samano MD Other Provider Active Star t: July 12, 2025 Hamzah Young DO Other Provider Active Start : July 12, 2025 Nicolasa Perez APRN Other Provider Active Start: July 12, 2025 Van Orozco DO Other Provider Active Start: July 12, 2025 Petty Pulido MD Other Provider Active Sta rt: July 12, 2025 Paradise Arias APRN Other Provider Active Start : July 12, 2025 Paula Webb APRN Other Provider Active St art: July 12, 2025 Radha Villalta MD Other Provider Active Start: S eptember 2024 Chato Rodriguez MD Other Provider Active S tart: July 12, 2025 Sergio Shah DO Other Provider Active Start: July 12, 2025 Jama Espinoza MD Other Provider Active Start: July 12, 2025 Joshua Martin MD Other Provider Active Start: June Maribeth Zhang APRN Other Provider Active Star t: July 12, 2025 Jv Camacho MD Other Provider Active Start: S eptember 2024 Steven Brenner MD Other Provider Active Start: July 12, 2025 Dillan Arce MD Other Provider Active Start : July 12, 2025 Jesus Watson MD Other Provider Active Start: S eptember 2024 Adali Tineo APRN Other Provider Active Sta rt: July 12, 2025 Ruel Goncalves APRN Other Provider Active Start: July 12, 2025 Fidelia Tarango RN Other Provider Active Start: Davion yoder 2024 Ordered Prescriptions (unrec ognized section and [...] Until Discontinued 2107 (Given - Provider: Peace Sol, ALFONSO) 2019 (Given - Provider: Gladis Lezama RN) [...] Oral, 3 TIMES DAILY, First dose on Marguerite 02/13/22 at 1800, Until Discontinued, Takes at 1400, 1800, and 2200 1355 (Given - Provider: Malik De La Garza RN)1729 (Given - Provider: Malik De La Garza RN)2110 (Given - Provider: Peace Sol RN) 1344 (Given - Provider: Marion Sharma, ALFONSO)1805 (Given - Provider: Marion Sharma RN)221 (Given - Provider: Gladis Lezama RN) 1400 (Due)1800 (Due)2199 (Due) carbidopa-levodopa (SINEMET) 25-100 MG per tablet [...] ALFONSO)2019 (Given - Provider: Gladis Lezama RN) 51 (Given - Provider: Nevaeh Oviedo RN)2099 (Due) [...] or Central Line = 20 mL/lumen, Post-op 08 (Given - Provider: Malik De La Garza RN)2111 (Given - Provider: Peace Sol RN) 0949 (Given - Provider: Marion Sharma, RN)2020 (Given - Provider: Gladis Lezama RN) [...] (Given - Provider: Malik De La Garza, ALFONSO) albuterol sulfate HFA 108 (90 Base) MCG/ACT [...] Moderate (4-6), pain 1947 (Given - Provider: Paece Sol, RN) Linked Groups Order Group 1: [...] BE BASED ON THE PRIMARY CLINICAL RECORDS. [facility] [employer] [facility]. provides no warranty or guarantee of the accuracy or completeness of information in this document.
[2025-07-24 15:17] LABS: Glucose Urine UA NEGATIVE (NEGATIVE)
== END 2025-07-24 14:36 | disposition home or self-care (01) ==
LOC: LAB 14:35
PROVIDERS: PCP Family Medicine; Visit Provider Urology
DX: N39.0 Urinary tract infection, site not specified (principal); R39.9 Unspecified symptoms and signs involving the genitourinary system; R82.90 Unspecified abnormal findings in urine
CPT/HCPCS: 81003; 87086; 87088; 87186

== ENCOUNTER 2025-07-27 20:51 | Emergency (ER) | payer MEDICARE, OTHER, SELFPAY ==
[2025-07-27 20:56] VITALS: BP 149/86; PULSE 69; TEMP 36.7; O2SAT 96; BMI 29.5
--- NOTE | 2025-07-27 20:56 | CT_ITS ---
The [address] [address] Patient Name: ALISIA CORREA MRN: [id number] date: 1960 Sex: M Assigned Patient Location: ED.MAIN Current Patient Location: ED.MAIN Accession/Order Number: [id number] Exam Date: 07/27/2025 21:16 Report Date: 07/27/2025 22:11 At the request of: ABDOULAYE LOREDO MD Procedure: CT lumbar spine wo con CT lumbar spine wo con 07/27/2025 9:40 PM History:Fall. TECHNIQUE: Multi detector CT axial slices of the lumbar spines were obtained without IV contrast. Volumetric acquisition sagittal, coronal, and 3-D reconstructions were performed and reviewed on a separate workstation. CT was performed with one or more of the following dose reduction techniques: Automated exposure control, adjustment of the mA and/or kV according to patient size, or use of iterative reconstruction technique. COMPARISON: Lumbar spine CT 06/02/2025 FINDINGS: Dextrocurvature. Stable postsurgical changes status post L2-S1 multilevel decompression and posterior instrumented fusion... No fracture. Vertebral body heights appear maintained. Multilevel disc space narrowing and endplate and facet joint degenerative changes. Moderate severe junctional degenerative changes L1-L2 with bilateral foraminal narrowing. There is at least moderate canal narrowing. At T12-L1, there is Moderate foraminal narrowing noted. Left-sided nephrolithiasis. Degenerative changes of sacral joints. Spinal stimulator leads identified. CT/CT lumbar spine wo con IMPRESSION: Multilevel postsurgical and degenerative changes greatest L1-L2 without evidence acute fracture. Impression dictated by: Jose Rodriguez M.D. 07/27/2025 10:11 PM Dictation Location: [place] [address] Electronically authenticated by: [id number] Y Date: 07/27/2025 22:11
--- NOTE | 2025-07-27 20:56 | CT_ITS ---
The [address] [address] Patient Name: ALISIA CORREA MRN: [id number] date: 1960 Sex: M Assigned Patient Location: ED.MAIN Current Patient Location: ED.MAIN Accession/Order Number: [id number] Exam Date: 07/27/2025 21:16 Report Date: 07/27/2025 21:37 At the request of: ABDOULAYE LOREDO MD Procedure: CT head/brain wo con CT BRAIN WITHOUT CONTRAST: CLINICAL HISTORY: fall out of wheelchair, hit head COMPARISON: 05/31/2025 TECHNIQUE: Contiguous axial unenhanced images were obtained through the brain. This CT exam was performed using one or more following dose reduction techniques: Automated exposure control, adjustment of the mA and/or kV according to patient size, or use of iterative reconstruction technique. FINDINGS: There is no evidence of midline shift, intra or extra-axial fluid collection, hemorrhage or CT evidence of acute large vascular distribution stroke. Intracranial vascular calculations. Visualized intraorbital contents appear unremarkable. Visualized paranasal sinuses are clear. The surrounding soft tissues are normal. CT/CT head/brain wo con IMPRESSION: NO ACUTE INTRACRANIAL ABNORMALITY. Impression dictated by: Jose Rodriguez M.D. 07/27/2025 9:37 PM Dictation Location: [place] [address] Electronically authenticated by: [id number] Y Date: 07/27/2025 21:37
--- NOTE | 2025-07-27 20:57 | CT_ITS ---
The [address] [address] Patient Name: ALISIA CORREA MRN: [id number] date: 1960 Sex: M Assigned Patient Location: ED.MAIN Current Patient Location: ED.MAIN Accession/Order Number: [id number] Exam Date: 07/27/2025 21:16 Report Date: 07/27/2025 22:05 At the request of: ABDOULAYE LOREDO MD Procedure: CT cervical spine wo con CT CERVICAL SPINE WITHOUT CONTRAST WITH 3D RECONSTRUCTIONS: CLINICAL HISTORY: fall out of wheelchair, neck and low back pain COMPARISON: CT cervical spine 06/02/2025 TECHNIQUE: Spiral axial unenhanced images were obtained through the cervical spine. Sagittal, coronal and 3D volume-rendered reconstructions were also reviewed. This CT exam was performed using one or more following dose reduction techniques: Automated exposure control, adjustment of the mA and/or kV according to patient size, or use of iterative reconstruction technique. FINDINGS: ACDF C6-T1. Vertebral body heights appear maintained. Moderate multilevel disc disease C3-C6. Moderate severe multilevel facet arthropathy. Similar appearance of the anterolisthesis C4-C5 and C5 on C6. Negative acute fracture or malalignment. Prevertebral soft tissues unremarkable. No prevertebral soft tissue swelling. Visualized lung apices are clear. CT/CT cervical spine wo con IMPRESSION: NO CERVICAL SPINE FRACTURE MULTILEVEL DEGENERATIVE AND POSTSURGICAL CHANGES. Impression dictated by: Jose Rodriguez M.D. 07/27/2025 10:05 PM Dictation Location: [place] [address] Electronically authenticated by: [id number] Y Date: 07/27/2025 22:05
--- NOTE | 2025-07-27 21:00 | ED.FALL1 ---
HPI HPI - Fall General Chief Complaint: Fall Stated Complaint: FALL Time Seen by Provider: 07/27/25 20:56 Source: patient and family Source comment: EMS Mode of arrival: ambulance History of Present Illness HPI Narrative: This 64-year-old male who is wheelchair dependent is brought to the emergency department by EMS. Patient was in his van with his who was driving and was coming down the ramp when the wheelchair lunged forward propelling him out of the wheelchair. He was not wearing the wheelchair seatbelt at that time. He struck the right side of his forehead on the ground and complains of a headache, right shoulder pain and low back pain. He does have a history of chronic back pain and has had multiple back surgeries. He has no focal weakness numbness or tingling. He is awake alert oriented upon arrival. He is not on any blood thinners. He was recently transferred from this facility to [facility] for a GI bleed requiring abdominal surgery. He has not had any GI bleeding since that time but also has not been able to take his medication for his arthritis. Related Data Home Medications ?Medication ?Instructions ?Recorded ?Confirmed atorvastatin 10 mg tablet 10 mg PO .QHS 08/20/23 07/06/24 carbidopa 25 mg-levodopa 100 mg 3 tab PO DAILY@0600 08/20/23 07/06/24 tablet docusate sodium 100 mg capsule 100 mg PO DAILY PRN constipation 08/20/23 07/06/24 ezetimibe 10 mg tablet 10 mg PO .QHS 08/20/23 07/06/24 midodrine 5 mg tablet 5 mg PO TID 08/20/23 07/06/24 montelukast 10 mg tablet 10 mg PO DAILY 08/20/23 07/06/24 pregabalin 300 mg capsule 300 mg PO BID 08/20/23 07/06/24 tolterodine 4 mg capsule,extended 4 mg PO DAILY 08/20/23 07/06/24 release 24 hr topiramate 100 mg tablet 100 mg PO BID 08/20/23 07/06/24 carbidopa ER 25 mg-levodopa 100 mg 1 tab PO TID 08/21/23 07/06/24 tablet,extended release potassium citrate 15 mEq (1,620 15 meq PO .QHS 08/21/23 07/06/24 mg) tablet,extended release carbidopa 25 mg-levodopa 100 mg 2 tab PO DAILY@1000 04/23/24 07/06/24 tablet (Sinemet) ciclopirox 0.77 % topical cream 1 applic topical BID 04/23/24 07/06/24 venlafaxine 150 mg 150 mg PO DAILY 04/23/24 07/06/24 capsule,extended release 24 hr carbidopa 25 mg-levodopa 100 mg 1 tab PO TID 04/24/24 07/06/24 tablet (Sinemet) duloxetine 60 mg capsule,delayed 60 mg PO .QHS 04/24/24 07/06/24 release (Cymbalta) fludrocortisone 0.1 mg tablet 0.1 mg PO DAILY 04/24/24 07/06/24 midodrine 5 mg tablet 10 mg PO TID 04/24/24 05/16/24 dtsnqtq-cljqktmjhoiii-qgbuaoov 250 2 tab PO DAILY PRN migraine 05/12/24 07/06/24 mg-250 mg-65 mg tablet (Excedrin headache Migraine) dicyclomine 10 mg capsule 10 mg PO BID 05/12/24 07/06/24 ondansetron HCl 4 mg tablet 4 mg PO Q6H PRN nausea and vomiting 05/12/24 07/06/24 wound dressings (Triad Wound 1 applic topical TID PRN skin 05/12/24 07/06/24 Dressing paste) irritation collagenase clostridium histo. 250 1 applic topical DAILY 07/06/24 07/06/24 unit/gram topical ointment (Santyl) sumatriptan succinate 50 mg tablet 50 mg PO Q2H PRN migraine headache 07/06/24 07/06/24 Previous Rx's ?Medication ?Instructions ?Recorded tramadol 50 mg tablet 50 mg PO Q6H PRN pain 5 days #20 04/27/24 tabs docusate sodium 100 mg capsule 100 mg PO BID #10 caps 06/22/24 (Colace) sulfamethoxazole 800 1 tab PO BID 7 days #14 tabs 06/22/24 mg-trimethoprim 160 mg tablet (Bactrim DS) tramadol 50 mg tablet 50 mg PO Q6H PRN pain 2 days #8 06/22/24 tabs wtywerklqz-hqimxconudrgf-yjttuumr 1 cap PO Q6H PRN headache #12 caps 09/18/24 50 mg-300 mg-40 mg capsule (Fioricet) cefdinir 300 mg capsule 300 mg PO BID 7 days #14 caps 07/06/24 ondansetron 4 mg disintegrating 4 mg PO Q6H PRN nausea and 07/06/24 tablet vomiting #12 tabs ciprofloxacin HCl 500 mg tablet 500 mg PO BID #14 tabs 12/13/24 (Cipro) hydrocodone 5 mg-acetaminophen 325 1 tab PO Q6H PRN pain 5 days #14 06/02/25 mg tablet tabs ondansetron 4 mg disintegrating 4 mg PO Q6H PRN nausea and 06/02/25 tablet vomiting #20 tabs Allergies Allergy/AdvReac Type Severity Reaction Status Date / Time clonazepam Allergy Severe Difficulty Verified 07/27/25 21:03 Breathing levofloxacin (From Levaquin) Allergy Severe Difficulty Verified 07/27/25 21:03 Breathing moxifloxacin Allergy Intermediate Hives Verified 07/27/25 21:03 celecoxib (From Celebrex) Allergy Mild Hives Verified 07/27/25 21:03 erythromycin base Allergy Mild Gastrointestinal Verified 07/27/25 21:03 Upset Opioid HPI Opioid Management Most Recent Pain and Opioid Data: Last Pain Scale 9 07/27/25, 22:53 Last Pain Intensity 5 04/25/24, 09:14 Last ED Pain Assessment 07/27/25, 21:44 Last MAR Pain Assessment 07/27/25, 21:47 Last ORT Total Score 0 04/23/24, 20:47 Last ORT Risk Category Low Risk 04/23/24, 20:47 Review of Systems ROS Status of ROS 10 or more systems reviewed and unremarkable except as noted in history and below [facility] Medical History (Updated 07/27/25 @ 22:21 by Kathi Enrique MD) Hydronephrosis with ureteral calculus ?N13.2 - Hydronephrosis with renal and ureteral calculous obstruction (ICD-10) Anemia in chronic illness ?D63.8 - Anemia in other chronic diseases classified elsewhere (ICD-10) Sacral decubitus ulcer ?L89.159 - Pressure ulcer of sacral region, unspecified stage (ICD-10) 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 ?G90.3 - Multi-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 (ICD-10) Type 2 diabetes mellitus with diabetic polyneuropathy ?E11.42 - Type 2 diabetes mellitus with diabetic polyneuropathy (ICD-10) Parkinson disease ?G20.A1 - Parkinson's disease without dyskinesia, without mention of fluctuations (ICD-10) Generalized weakness ?R53.1 - Weakness (ICD-10) Suprapubic catheter ?Z93.59 - Other cystostomy status (ICD-10) COPD (chronic obstructive pulmonary disease) ?J44.9 - Chronic obstructive pulmonary disease, unspecified (ICD-10) Breath shortness ?R06.02 - Shortness of breath (ICD-10) Urinary tract infection ?N39.0 - Urinary tract infection, site not specified (ICD-10) Complication, blocked Ferro catheter ?T83.091A - Other mechanical complication of indwelling urethral catheter, initial encounter (ICD-10) UTI (urinary tract infection) ?N39.0 - Urinary tract infection, site not specified (ICD-10) Bladder infection, chronic ?N30.20 - Other chronic cystitis without hematuria (ICD-10) Weakness of both lower extremities ?R29.898 - Other symptoms and signs involving the musculoskeletal system (ICD-10) Neurogenic bladder ?N31.9 - Neuromuscular dysfunction of bladder, unspecified (ICD-10) Neuropathy ?G62.9 - Polyneuropathy, unspecified (ICD-10) Tonsillectomy planned FH: bilateral hip replacements ?Z82.69 - Family history of other diseases of the musculoskeletal system and connective tissue (ICD-10) Enlarged prostate ?N40.0 - Benign prostatic hyperplasia without lower urinary tract symptoms (ICD-10) 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, unspecified (ICD-10) 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 - Malignant (primary) neoplasm, unspecified (ICD-10) Esophageal cancer ?C15.9 - Malignant neoplasm of esophagus, unspecified (ICD-10) Barretts esophagus ?K22.70 - Rust's esophagus without dysplasia (ICD-10) GERD without esophagitis ?K21.9 - Gastro-esophageal reflux disease without esophagitis (ICD-10) Asthma ?J45.909 - Unspecified asthma, uncomplicated (ICD-10) Pneumonia ?J18.9 - Pneumonia, unspecified organism (ICD-10) COVID-19 ?U07.1 - COVID-19 (ICD-10) Kidney stones ?N20.0 - Calculus of kidney (ICD-10) Bladder stones ?N21.0 - Calculus in bladder (ICD-10) Type 2 diabetes mellitus ?E11.9 - Type 2 diabetes mellitus without complications (ICD-10) Hypotension ?I95.9 - Hypotension, unspecified (ICD-10) Surgical History (Updated 08/06/23 @ 08:15 by Jorge Contreras) H/O cystoscopy ?Z98.890 - Other specified postprocedural states (ICD-10) S/P insertion of spinal cord stimulator ?Z96.89 - Presence of other specified functional implants (ICD-10) Status post right rotator cuff repair ?Z98.890 - Other specified postprocedural states (ICD-10) H/O hand surgery ?Z98.890 - Other specified postprocedural states (ICD-10) History of left knee replacement ?Z96.652 - Presence of left artificial knee joint (ICD-10) History of left shoulder replacement ?Z96.612 - Presence of left artificial shoulder joint (ICD-10) Previous back surgery ?Z98.890 - Other specified postprocedural states (ICD-10) H/O gastric bypass ?Z98.84 - Bariatric surgery status (ICD-10) Family History (Updated 08/20/23 @ 20:33 by Barbara Mauro RN) Mother Family history of hypertension Family history of diabetes mellitus Family history of COPD (chronic obstructive pulmonary disease) Brother Family history of cancer Other Family history of CHF (congestive heart failure) Social History Within the past year, how often did you have a drink containing alcohol: never Within the past year, how often did you have six or more drinks on one occasion: never Score interpretation: A score less than 4 is consistent with normal alcohol consumption. Smoking status: Former smoker Highest level of school completed/degree received: some college, no degree Are you now , , , , never or living with a partner: In a typical week, how many times do you talk on the telephone with family, friends, or neighbors: 3 or more times per week How often do you get together with friends or relatives: 3 or more times per week Little interest or pleasure in doing things: not at all Feeling down, depressed, or hopeless: several days Feel stressed/tense/nervous/anxious/difficulty sleeping: to some extent Do you think of yourself as: straight/heterosexual Gender Identity: male Exam Narrative Exam Narrative: Vital signs and Nursing Notes reviewed: Patient is afebrile, pulse is in the 60s, blood pressures in the 140s over 80s, he is not hypoxic with pulse ox of 96% on room air General: Awake, alert, oriented, chronically ill-appearing obese male, no respiratory distress, GCS 15-c-collar in place HEENT: Normocephalic, superficial abrasion on the right frontal aspect of the scalp, no active bleeding laceration or hematoma noted Neck: Immobilized in c-collar Chest: Lungs are clear to auscultation with good air entry, there is no wheezing rhonchi or rales appreciated no accessory muscle use, patient is speaking in complete sentences-no chest wall tenderness to palpation CVS: Regular rate and rhythm S1-S2, no murmurs rubs or gallops, pulses are brisk and equal bilaterally ABD: Soft, nondistended, nontender, healed abdominal incision, appropriate catheter in place draining yellow urine Extremities: Moving all extremities, no lower extremity tenderness or swelling noted, diffuse muscle wasting noted Skin: Normal in appearance without rash,pallor, petechiae or purpura Neuro: No focal deficits, speech is clear, director audience marketing strength is intact, patient is at his neurologic baseline with diffuse muscle wasting, history of Parkinson disease with minimal use of his lower extremities Constitutional Vital Signs, click to edit/add: Last Vital Signs Temp 98.1 F 07/27/25 20:56 Pulse 60 07/27/25 22:52 Resp 18 07/27/25 22:52 BP 174/96 H 07/27/25 22:52 Pulse Ox 98 07/27/25 22:52 O2 Del Method Room Air 07/27/25 20:56 Course Vital Signs Vital signs: Vital Signs Temperature 98.1 F 07/27/25 20:56 Pulse Rate 69 07/27/25 20:56 Respiratory Rate 16 07/27/25 20:56 Blood Pressure 149/86 H 07/27/25 20:56 Pulse Oximetry 96 07/27/25 20:56 Oxygen Delivery Method Room Air 07/27/25 20:56 Temperature 98.1 F 07/27/25 20:56 Pulse Rate 60 07/27/25 22:52 Respiratory Rate 18 10/09/25 22:52 Blood Pressure 174/96 H 07/27/25 22:52 Pulse Oximetry 98 07/27/25 22:52 Oxygen Delivery Method Room Air 07/27/25 20:56 MDM - Fall MDM Narrative Medical decision making narrative: This 64-year-old male with a history of Parkinson's disease who is wheelchair dependent is brought to emergency department by EMS. The patient and his had just been to their grandsons football game and were coming home and were in the garage. The patient was going down his wheelchair ramp but did not have his seatbelt on in his wheelchair was set on the high addition causing him to be top-heavy. He was going down the ramp when he fell out of the wheelchair onto the garage floor striking the right side of his head. He presents for evaluation of pain in his head, neck and low back. He also complained of right shoulder pain. He did not put his arms out to break his fall and does not have any hand or wrist or elbow pain. The patient recently had GI surgery for an active GI bleed and has recently not been able to take any of his medication that he takes for chronic pain including Excedrin etc. He was medicated with a dose of morphine and Zofran in the emergency department. His vital signs are stable. GCS is 15. He has no focal neurologic deficits. He has an abrasion over the right forehead but otherwise normal physical exam for this patient. He is chronically debilitated with diffuse muscle wasting, Parkinson's disease, suprapubic catheter. CT scan of the brain was negative for acute findings. CT scan of the cervical spine is negative for acute findings. His c-collar was removed. X-ray of the right shoulder shows degenerative changes but no acute fracture. CT scan of the lumbar spine shows multilevel degenerative changes with no acute fracture. The results of these findings were discussed with the patient and his . He will be discharged home with a [place] and prescription for short course of [place] to use for his pain. He is able to take Tylenol based medications but no longer can take any NSAIDs due to his recent GI bleed and history of gastric bypass surgery. Medical Records Attestation: I reviewed the patient's medical records. Discharge Plan Discharge Chief Complaint: Fall Clinical Impression: Fall from motorized wheelchair, Closed head injury, Cervical strain, acute, Right shoulder strain, Acute exacerbation of chronic low back pain Patient Disposition: Home, Self-Care Time of Disposition Decision: 22:21 Condition: Good Prescriptions / Home Meds: No Action carbidopa-levodopa 25-100 mg tablet 3 tab PO DAILY@0600 atorvastatin 10 mg tablet 10 mg PO .QHS montelukast 10 mg tablet 10 mg PO DAILY pregabalin 300 mg capsule 300 mg PO BID Patient Comments: 0800, 1800 tolterodine 4 mg capsule,extended release 24hr 4 mg PO DAILY midodrine 5 mg tablet 5 mg PO TID Patient Comments: 1200,1400,1800 topiramate 100 mg tablet 100 mg PO BID Patient Comments: AT 0800,1800 docusate sodium 100 mg capsule 100 mg PO DAILY PRN (Reason: constipation) ezetimibe 10 mg tablet 10 mg PO .QHS potassium citrate 15 mEq tablet extended release 15 meq PO .QHS carbidopa-levodopa 25-100 mg tablet extended release 1 tab PO TID Patient Comments: 1400,1800,2200 ciclopirox 0.77 % cream 1 applic TOPICAL BID venlafaxine 150 mg capsule,extended release 24hr 150 mg PO DAILY carbidopa-levodopa [Sinemet] 25-100 mg tablet 2 tab PO DAILY@1000 fludrocortisone 0.1 mg tablet 0.1 mg PO DAILY Rx Instructions: DAILY AT 0800 MAY GIVE 2 TABLETS IF SBP < 100 midodrine 5 mg tablet 10 mg PO TID Rx Instructions: 12 PM, 1400 AND 1800 do not give last dose of day after 6PM or within 4 hrs of bedtime carbidopa-levodopa [Sinemet] 25-100 mg tablet 1 tab PO TID Rx Instructions: 1400,1800,2200 duloxetine [Cymbalta] 60 mg capsule,delayed release(DR/EC) 60 mg PO .QHS tramadol 50 mg tablet 50 mg PO Q6H PRN (Reason: pain) 5 Days Qty: 20 0RF Excedrin Migraine 250-250-65 mg tablet 2 tab PO DAILY PRN (Reason: migraine headache) dicyclomine 10 mg capsule 10 mg PO BID Triad Wound Dressing Paste 1 applic topical TID PRN (Reason: skin irritation) ondansetron HCl 4 mg tablet 4 mg PO Q6H PRN (Reason: nausea and vomiting) sulfamethoxazole-trimethoprim [Bactrim DS] 800-160 mg tablet 1 tab PO BID 7 Days Qty: 14 0RF docusate sodium [Colace] 100 mg capsule 100 mg PO BID Qty: 10 0RF tramadol 50 mg tablet 50 mg PO Q6H PRN (Reason: pain) 2 Days Qty: 8 0RF Rx Instructions: DX: M54.5 Santyl 250 unit/gram ointment 1 applic TOPICAL DAILY sumatriptan succinate 50 mg tablet 50 mg PO Q2H PRN (Reason: migraine headache) ondansetron 4 mg tablet,disintegrating 4 mg PO Q6H PRN (Reason: nausea and vomiting) Qty: 12 0RF cefdinir 300 mg capsule 300 mg PO BID 7 Days Qty: 14 0RF lenvfwlhmg-lcaaliuztffhx-lqyl [Fioricet] 50-300-40 mg capsule 1 cap PO Q6H PRN (Reason: headache) Qty: 12 0RF Rx Instructions: DX: R51.9 ciprofloxacin HCl [Cipro] 500 mg tablet 500 mg PO BID Qty: 14 0RF ondansetron 4 mg tablet,disintegrating 4 mg PO Q6H PRN (Reason: nausea and vomiting) Qty: 20 0RF hydrocodone-acetaminophen 5-325 mg tablet 1 tab PO Q6H PRN (Reason: pain) 5 Days Qty: 14 0RF Print Language: [place] Citizen Instructions: Cervical Strain (DC), Muscle Strain (ED), Head Injury (ED) Referrals: ELLEN ARIAS [Primary Care Provider, Family Practice] - 1 week Discharge Date/Time: 07/27/25 23:08
--- NOTE | 2025-07-27 21:03 | XR_ITS ---
[facility] [place] [id number] Patient Name: ALISIA CORREA MRN: [id number] date: 1960 Sex: M Assigned Patient Location: ED.MAIN Current Patient Location: ED.MAIN Accession/Order Number: [id number] Exam Date: 07/27/2025 21:16 Report Date: 07/27/2025 22:03 At the request of: ABDOULAYE LOREDO MD Procedure: XR shoulder RT min 2V 3 views right shoulder CLINICAL HISTORY: fall out of wheelchair COMPARISON: None FINDINGS: Hypertrophic changes at level of the acromioclavicular joints likely degenerative in nature. Severe glenohumeral degenerative change. Tendon anchor projects over the humerus. No fracture or desiccation identified. Right lung apex is clear. XR/XR shoulder RT min 2V IMPRESSION: No acute bony process. Degenerative changes Impression dictated by: Jose Rodriguez M.D. 07/27/2025 10:03 PM Dictation Location: [place] [address] Electronically authenticated by: [id number] Y Date: 07/27/2025 22:03
--- OUTSIDE RECORDS SUMMARY | 2025-07-27 21:07 | XMS_ITS | CCD ---
Author Organization [facility] ion [facility] Care Team Providers Care Welder And Fitter Name Role Phone RICCHETTI, SERGEY T Unavailable Unavailable RICCHETTI, SERGEY T Unavailable Unavailable RICCHETTI, SERGEY T Unavailable Unavailable RICCHETTI, SERGEY T Unavailable Unavailable REAGAN BLAIR Unavailable Unavailable NADEEN, SWATI M Unavailable Unavailable NADEEN, SWATI M Unavailable Unavailable LUISITO RIVERA Unavailable Unavailable UNKNOWN, PROVIDER Unavailable Unavailable UNKNOWN, PROVIDER Unavailable Unavailable SELF, REFERRED Unavailable Unavailable ELLEN CRABTREE Unavailable Unavailable Ellen Crabtree Unavailable Unavailable Unavailable Lashon Hamm Primary Care Physician Lashon Justin Unavailable Unavailable Lashon Hamm Primary Care Physician Ellen Kiran Primary Care Provider [phone] Ellen Crabtree DO Primary Care Provider Unavailab [...] Unavailable LEYDA, ELLEN MCCOY Primary Care Unavailable LEYDA, ELLEN Primary Care Physician [phone] MISC, DR MYERS Consulting Unavailable MISC, DR MYERS Admitting Unavailable KUNDavion, DR HUGHES Primary Care Unavailable MISC, DR MYERS Attending Unavailable TREVOR, DR DON Hinkle Consulting Unavailable LEYDA ., MICHELL Attending Unavailable LEYDA ., MICHELL Consulting Unavailable LEYDA ., MICHELL Admitting Unavailable KUNDavion, DR HUGHES Primary Care Unavailable CHE PANDYA Consulting Unavailable IBARRA ., DR PARRA Admitting Unavailable KUNS, DR HUGHES Primary Care Unavailable IBARRA ., DR PARRA Attending Unavailable IBARRA ., DR PARRA Consulting Unavailable NEWATIA, SHARRON Consulting Unavailable IBARRA ., DR PARRA Admitting Unavailable KUNS, DR HUGHES Primary Care Unavailable IBARRA ., DR PARRA Attending Unavailable IBARRA ., DR PARRA Consulting Unavailable TRESMOIZ Consulting Unavailable ELLI II, WICHO Consulting Unavailable HOY ., DR DANG Attending Unavailable HOY ., DR DANG Consulting Unavailable HOY ., DR DANG Admitting Unavailable KUNS, DR HUGHES Primary Care Unavailable WEST, DR LIZETH Momin Consulting Unavailable NADERER, DR JOSE ALEJANDRO Crowe Consulting Unavailable CHRISTIAN, EN Consulting Unavailable DIAB ., MERCEDEZ Consulting Unavailable Kundavion, DO Hughes Primary Care Provider [phone] DO Bernice Shrestha Attending Provider IBARRA, Fidel [...] Ellen Crabtree DO Primary Care Provider Ellen Carbtree DO Primary Care Provider Benitez Ortega DO Emergency Provider Ellen Crabtree DO Attending Provider [phone] Heidy Marin MD Referring Provider [phone] Ellen Crabtree DO Primary Care Provider Unavailab Mercedez Hernandez MD Attending Provider Ellen Crabtree DO Primary Care Provider Ellen Crabtree DO Attending Provider Heidy Marin MD Referring Provider [phone] Mercedez Cramer MD Attending Provider LYN MACE Attending Unavailable LYN MACE Attending Unavailable RODRILYN BARRAZA Attending Unavailable RODRILYN BARRAZA Attending Unavailable RODRILYN BARRAZA Admitting Unavailable Romel Leonardo MD Attending Provider [phone] Unavailable Primary Care Provider UnavailLYN Bird Attending Unavailable ELLEN CRABTREE Referring Unavailable KUNS, ELLEN R Primary Care Unavailable SAMIRA BOWDEN Attending Unavailable KUNS, ELLEN R Referring Unavailable KUNS, ELLEN R Primary Care Unavailable HEIDY MARIN Attending Unavailable [...] Attending Provider Marker Abdoulaye LU Attending Provider [phone] Christian YBARRA, Steven Admit Provider Steven Gonzales MD Other Provider Neva HAMILTON, Aleshia Other Provider Unavailable Melisa RN, Rose Other Provider Unavailable Alex RN, Nellie Other Provider Unavailable Debbie RN, Kathy Other Provider Unavailable Leonard RN, Lorraine Other Provider Unavailable Christian HAMILTON, Dara Other Provider Unavailable Sandy Carlson MD Other Provider Tai Richardson DO Other Provider Harvey Pat MD Other Provider [phone] Skinny Jensen DO Other Provider David Logan MD Other Provider Jacinta Sorensen MD Other Provider Romel Rojas DO Other Provider Unavailab Dillan Chambers MD Other Provider Unavailable Miryam Bell APRN Other Provider Jose Daniel YBARRA, Lamont Other Provider [phone] Sophie Trujillo MD Other Provider Unavailable Vandana Kerr MD Other Provider Romel Arevalo DO Other Provider Emelina Ojeda MD Other Provider Enrico Hammer MD Other Provider Italo HUMAN RESOURCES PROJECT MANAGER-C, Elli J Other Provider George YAN, Ferny Navarro Other Provider Unavailable Talon YBARRA, Quintin Crum Other Provider Arvind Sanders MD Other Provider Gunnar Samano MD Other Provider Unavailable Hamzah Young DO Other Provider Nicolasa Perez APRN Other Provider Van Orozco DO Other Provider Ashok YBARRA, Petty Navarro Other Provider Paradise Arias APRN Other Provider Heidy YAN, Paula Lofton Other Provider Ambar YBARRA, Radha Other Provider Unavailable Chato Rodriguez MD Other Provider Sergio Shah DO Other Provider Jama Espinoza MD Other Provider Joshua Martin MD Other Provider [phone] Maribeth Zhang APRN Other Provider Unavailable Jv Camacho MD Other Provider Steven Brenner MD Other Provider Dillan Arce MD Other Provider Jesus Watson MD Other Provider Adali Tineo APRN Other Provider Ivanna YAN, Ruel Other Provider Emelina HAMILTON, Fidelia Other Provider Unavailable Heriberto Campos MD Attending Provider Christian YBARRA, Steven Attending Provider [phone] LUIS, ROBERTH Referring Unavailable SAFI, DEVEN Referring Unavailable ROSENDALE, REYGHAN Referring Unavailable GHAZALEH, LISANDRO Attending Unavailable KARABISUSANNAH Woods Attending Unavailable LUIS, ROBERTH Referring Unavailable NAZZAL, HERMINIO Referring Unavailable RICHARD, LORA Attending Unavailable RICHARD, LORA [...] ROBERTH Referring Unavailable SAFI, DEVEN Referring Unavailable Ellen Crabtree DO Primary Care Provider Ellen Crabtree DO Attending Provider Abdoulaye Enrique DO Attending Provider [phone] Steven Gonzales MD Admit Provider Steven Gonzales MD Other Provider Neva RN, Aleshia Other Provider Unavailable Melisa RN, Rose Other Provider Unavailable Alex RN, Nellie Other Provider Unavailable Debbie RN, Kathy Other Provider Unavailable Leonard RN, Lorraine Other Provider Unavailable Christian HAMILTON, Dara Other Provider Unavailable Sandy Carlson MD Other Provider Tai Richardson DO Other Provider Harvey Pat MD Other Provider Skinny Jensen DO Other Provider [phone] David Logan MD Other Provider Edu YBARRA, Jacinta Other Provider [phone] Romel Rojas DO Other Provider Unavailab sussy Rodriguez MD, Dillan Other Provider Unavailable Miryam Bell APRN Other Provider Jose Daniel YBARRA, Lamont Other Provider Sophie Trujillo MD Other Provider Unavailable Vandana Kerr MD Other Provider Romel Arevalo DO Other Provider Emelina Ojeda MD Other Provider Enrico Hammer MD Other Provider Italo HUMAN RESOURCES PROJECT MANAGER-C, Elli Gomez Other Provider Born FARRAH, Ferny Navarro Other Provider Unavailable Quintin Hanley MD Other Provider Arvind Sanders MD Other Provider Gunnar Samano MD Other Provider Unavailable Hamzah Young DO Other Provider Nicolasa Perez APRN Other Provider Van Orozco DO Other Provider Ashok YBARRA, Petty Navarro Other Provider Paradise Arias APRN Other Provider Paula Webb APRN Other Provider Radha Villalta MD Other Provider Unavailable Chato Rodriguez MD Other Provider Sergio Shah DO Other Provider Jama Espinoza MD Other Provider Joshua Martin MD Other Provider Maribeth Zhang APRN Other Provider Unavailable Jv Camacho MD Other Provider Steven Brenner MD Other Provider Dillan Arce MD Other Provider Jesus Watson MD Other Provider Adali Tineo APRN Other Provider Bolzamelly-Jason YANMorrisjohn Other Provider [phone] Emelina HAMILTON, Fidelia Other Provider Unavailable Andres YBARRA, Heriberto Art Attending Provider Steven Gonzales MD Attending Provider Graciela Macias LPN Attending Provider Unavailable Fidel Ibarra MD Attending Provider Benitez Ortega Attending Unavailable Kuns, Ellen Primary Care Unavailable KeisterBenitez Admitting Unavailable Ibarra, Fidel Attending Unavailable Fred, Fidel Admitting Unavailable Diab, Mercedez Crowe Attending Unavailable Diab, Mercedez A Admitting Unavailable Kuns, Ellen Primary Care Unavailable Kuns, Ellen Attending Unavailable Kuns, Ellen Admitting Unavailable Heidy Marin Referring Unavailable Romel Leonardo Attending Unavailable Malissa, Romel Admitting Unavailable Kuns, Ellen Primary Care Unavailable Michis, Ellen Primary Care Unavailable Steven Gonzales Attending Unavailable Steven Gonzales Admitting Unavailable Aleshia Hooks Consulting Unavailable Rose Vincent Consulting Unavailable Nellie Johnson [...] Samano Consulting Unavailable Hamzah Young Consulting Unavailable Chris Nicolasa Consulting Unavailable Van Orozco Consulting Unavailable Petty Pulido Consulting Unavailable Paradise Arias Consulting Unavailable Paula Webb Consulting Unavailable Alahmad, Alaa Consulting Unavailable Chato Rodriguez Consulting Unavailable Sergio Shah Consulting Unavailable Jama Espinoza Consulting Unavailable Joshua Martin Consulting Maribeth Arroyo Consulting Unavailable Jv Camacho Consulting Unavailable Steven Brenner Consulting Unavailable Dillan Arce Consulting Unavailable Jesus Watson Consulting Unavailable Adali Tineo Consulting Unavailable Bolzan-Jason, Nicoletto Consulting Unavaila Fidelia Willson Consulting Unavailable Allergies Allergy Classification Reported Allergen(s) Allergy Type Date of Onset Reaction(s) Facility (20 sources) celecoxib; Translations: [CELECOXIB] Drug Allergy 06-04-20 17 Rash, Hives, GI Upset, Weal (disorder) [facility] (20 sources) clonazePAM; Translations: [CLONAZEPAM] Drug Allergy 06-04-20 17 Itching, Shortness Of Breath, Dyspnea (finding) [facility] (20 sources) levoFLOXacin; Translations: [LEVOFLOXACIN] Drug Allergy 01-30-20 10 Hives, Shortness Of Breath, Dyspnea (finding) [facility] (9 sources) moxifloxacin; Translations: [MOXIFLOXACIN HCL] Drug Allergy 07-20-20 06 Rash, Hives, Itching, Shortness of Breath [facility] (20 sources) ERYTHROMYCIN BASE; Translations: [ERYTHROMYCIN BASE] Propensity to adverse reactions to drug (disorder) 03-06-20 04 Hives, Shortness of Breath [facility] (7 sources) celecoxib; Translations: [CeleBREX] Drug Allergy 06-25-20 12 [facility] (1 source) erythromycin Drug Allergy 06-25-20 12 [facility] (20 sources) levoFLOXacin Drug Allergy 06-25-20 12 Unknown [facility] (7 sources) moxifloxacin; Translations: [Avelox] Drug Allergy 06-25-20 12 [facility] Rep[facility] (5 sources) celecoxib; Translations: [CeleBREX CAPS] Drug Allergy [facility] DO Work Phone: (5 sources) clonazePAM; Translations: [KlonoPIN TABS] Drug Allergy [place] [address] DO Work Phone: (5 sources) levoFLOXacin; Translations: [Levaquin] Drug Allergy [place] [address] DO Work Phone: (20 sources) moxifloxacin; Translations: [Avelox] Drug Allergy 07-19-20 06 Hives, Shortness Of Breath, Dyspnea (finding), Eruption of skin (disorder), Itching (finding), Urticaria (disorder), Weal (disorder), Itching, Rash [facility] (5 sources) Erythromycin Derivatives; Translations: [Erythromycin Derivatives] Allergy to drug (finding) [place] [address] DO Work Phone: (2 sources) celecoxib; Translations: [Celebrex] Drug Allergy [facility] (7 sources) clonazePAM; Translations: [Klonopin] Drug Allergy [facility] Repository (20 sources) Erythromycin; Translations: [erythromycin] Drug Allergy 01-18-20 21 Itching, Nausea And Vomiting, Nausea (finding) [facility] Other (2 sources) levoFLOXacin; Translations: [Levaquin] Drug Allergy [facility] (2 sources) moxifloxacin; Translations: [Avelox] Drug Allergy [facility] (20 sources) pimavanserin; Translations: [PIMAVANSERIN] Drug Allergy 08-23-20 20 [facility] (20 sources) moxifloxacin; Translations: [moxifloxacin] Drug Allergy 07-19-20 06 Unknown Reaction, [facility] Medications Current Medications Medication Drug Class(es) Dates Sig (Normalized) Sig (Original) acetaminophen 500 mg oral tablet (20 sources) Start: 07-17-2025 Start: 04-19-2023 End: 06-28-2025 Start: 04-19-2023 End: 01-06-2024 take 650 mg by mouth every six hours Acetaminophen Discontinued 650 MG PO Q6H 0 April 19, 2023 12:00am January 06, 2024 4:08pm Start: 03-07-2022 End: 03-23-2023 take 2 tablets by mouth three times [...] 24 hours. Post-op Start: 02-17-2019 End: 03-07-2022 Start: 02-17-2019 End: 03-07-2022 take 1 tablet [...] mg / caffeine 40 mg oral capsule (2 sources) Barbiturate, Central Nervous System Stimulant, Methylxanthine Start: 04-20-2025 Start: 04-20-2025 take 1 capsule by mouth every six hours as needed for pain acetaminophen 500 mg / caffeine 65 mg oral tablet (20 sources) Central Nervous System Stimulant, Methylxanthine Start: 02-19-2021 take 2 tablets by mouth every six hours as needed acetaminophen-caffeine (EXCEDRIN TENSION HEADACHE) 500-65 mg tablet Take 2 tablets by mouth every 6 (six) hours as needed (Migraine). 90 tablet 02/19/2021 Active [id number] 200 actuat albuterol 0.09 mg/actuat metered dose inhaler (20 sources) beta2-Adrenergic Agonist Start: 06-28-2025 Start: 12-14-2024 End: 06-28-2025 Start: 12-14-2024 End: 06-28-2025 Albuterol Sulfate (Ventolin Hfa) 90 mcg/actuation HFA aerosol inhaler Discontinued 1 INH INHALATION Every 6 hours as needed for shortness of breath or wheezing 8.5 December 14, 2024 1:00am June 28, 2025 2:42pm Start: 01-06-2024 End: 02-11-2024 Start: 01-06-2024 End: 02-11-2024 take 3 mL by inhalation four times daily as needed Albuterol Sulfate 2.5 mg /3 mL (0.083 %) solution for nebulization Discontinued MG INHALATION January 06, 2024 12:00am February 11, 2024 8:17am [employer] mL prefilled vial Inhalation qid prn; Note: Source Status: Taking; Refills: 1; Provider: Leyda Hinkle Start: 03-23-2023 End: 04-19-2023 Start: 03-23-2023 End: 04-19-2023 take 2.5 mg [...] 0 11/08/2019 Active Start: 02-17-2019 End: 03-07-2022 Start: 02-17-2019 End: 03-07-2022 take 1.25 mg [...] directed Inhalation qid prn prn Jan, Active take 1 puff(s) by in halation [...] Daily, # 30 tab(s), Refills(s) 0, Pharmacy: [facility]5, 175, cm, 01/16/23 10:13:00 EDT, Height/Length Dosing, 92, kg, 01/16/23 10:13:00 EDT, Weight Dosing Start Date: 01/20/23 Status: Ordered augmented betamethasone 0.5 mg/ml topical cream (20 sources) Corticosteroid Start: 021 betamethasone, augmented, (DIPROLENE) 0.05 % cream Apply 1 application topically daily. 30 g 02/19/2021 Active Start: 05-26-2017 End: 11-20-2022 Comment on above: APPLY TO THE AFFECTE D AREA(S) ONCE DAILY carbidopa 25 mg / levodopa 100 mg extended release oral tablet (20 sources) Aromatic Amino Acid Decarboxylation Inhibitor, Aromatic Amino Acid Start: 06-28-2025 Start: 01-06-2024 Carbidopa-Levo dopa 25-100 mg tablet [...] mg per CR tablet Indications: Parkinson's disease ([facility]) TAKE 1 TABLET BY MOUTH AT 2AM, 2 TABLETS AT 6AM AND 10AM, 1 TABLET AT 2PM, 6PM, AND 10PM. TAKE WITH SINEMET IR 240 tablet 11 08/31/2024 Active Start: 01-16-2023 End: 01-06-2024 Start: 11-04-2022 take 2 tablets by mo [...] mg per tablet Indications: PD (Parkinson's disease) ([facility]) Take 1.5 tablets by mouth four times daily. 540 tablet 1 07/28/2019 Active Start: 02-17-2019 End: 01-30-2025 Carbidopa-Levodo pa 25-100 MG 2 tabs @ 6am, 2 tabs @ 10am, 1 tab @ 2 pm, 1 tab @6pm Oral as directed do not eat an hour prior or after taking Active carbidopa 10 mg- levodopa 100 mg tablet unsure of dose Comment on above: Take 1.5 tablets by mouth four times daily. Take 2 tablets by [facility] at 6 am, 2 tablets at [...] sources) CPAP Machine Act av diclofenac sodium 0.01 mg/mg topical gel (20 sources) Nonsteroidal Anti-inflammatory Drug Start: 07-17-2025 Start: 02-17-2019 End: 07-17-2025 diclofenac sodiu m oral Comment on above: diclofenac sodium 75 mg tablet,delayed release Take 1 tablet twice a day by oral route for 90 days. dicyclomine hydrochloride 10 mg oral capsule (2 sources) Anticholinergic Start: doxycycline hyclate 100 mg oral capsule (2 sources) Tetracycline-class Drug Start: End: take 1 capsule by mouth twice daily doxycycline hyclate 100 mg Cap 100 mg = 1 cap(s), Oral, BID, X 10 day(s), # 20 cap(s), Refills(s) 0, Pharmacy: [facility], 175, cm, 03/20/23 9:07:00 EDT, Height/Length Dosing, 92, kg, 03/20/23 9:07:00 EDT, Weight Dosing Start Date: 05/25/23 Stop Date: 06/04/23 Status: Ordered fludrocortisone acetate 0.1 mg oral tablet (20 sources) Start: End: Start: 02-23-2023 End: 07-14-2024 fludrocortisone (FLORINEF) 0 .1 mg tablet Indications: 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 ([facility]) 2 tabs daily as directed 180 tablet 3 07/15/2024 Active Start: 12-06-2022 End: 04-05-2025 take 1 tablet by mouth once daily Comment on above: Take 1 tablet by brendan once daily. fluticasone propionate 0.05 mg/actuat metered dose nasal spray (18 sources) Corticosteroid Start: 01-06-2024 Start: 01-06-2024 Start: 09-02-2023 take 1 spray(s) [...] sources) Antiarrhythmic, Amide Local Anesthetic Start: 07-17-2025 Start: 04-19-2023 End: 01-22-2024 Start: 03-07-2022 End: 03-23-2023 Start: 02-18-2022 End: 03-07-2022 magnesium citrate 58.2 mg/ml oral solution (1 source) Start: 03-14-2025 End: 03-14-2025 take 148 mL by mouth once magnesium citrate (CITROMA) solution Indications: Constipation, unspecified constipation type Take 148 mL by mouth once for 1 dose. 148 mL 03/14/2025 03/14/2025 Active methenamine hippurate 1000 mg oral tablet (3 sources) Start: 01-30-2025 midodrine hydrochloride 5 mg oral tablet (20 sources) alpha-Adrenergi c Agonist Start: 03-24-2025 midodrine (PROAMATINE) 5 mg [...] evening Orally Start: 03-23-2023 End: 01-06-2024 Midodrine Discontinued 10 [...] Start: 12-06-2022 take 3 tablets by mo [facility] once daily midodrine (PROAMITINE) 5 mg [...] or within 4 hrs of bedtime. Start: 08-29-2021 End: 07-17-2025 Start: 08-16-2021 End: 03-07-2022 take 1 tablet [...] mg Active take 3 tablets by mo [facility] every twelve hours Midodrine HCl 5 MG 3 tablet Orally BID 15 mg Active midodrine 2.5 mg tablet unsure of dose Comment on above: Take 5 mg by mouth t wice daily. Take 3 tablets by mo [facility] once daily. Take at 7:00am [facility]. Take daily at 2:00pm [facility]. Take daily at 8:00pm Minerin [...] BID, # 5 cap(s), Refills(s) 0, Pharmacy: [facility], 175, cm, 03/20/23 9:07:00 EDT, Height/Length Dosing, 92, kg, 03/20/23 9:07:00 EDT, Weight Dosing Start Date: 07/22/23 Status: Ordered Start: 06-11-2023 End: 06-21-2023 take 1 capsule by mouth twice daily Macrobid 100 mg Cap 100 mg = 1 cap(s), Oral, BID, X 10 day(s), # 20 cap(s), Refills(s) 0, Pharmacy: [facility], 175, cm, 03/20/23 9:07:00 EDT, Height/Length Dosing, 92, kg, 03/20/23 9:07:00 EDT, Weight Dosing Start Date: 06/11/23 Stop Date: 06/21/23 Status: Ordered ondansetron 4 mg disintegrat ing oral tablet (20 sources) Serotonin-3 Receptor Antagonist Start: 06-28-2025 Start: 01-13-2025 End: 01-30-2025 Start: 01-13-2025 End: 01-30-2025 take 1 tablet by mouth once daily Ondansetron 4 mg tablet,disintegrating Discontinued 4 MG PO Daily January 13, 2025 12:00am January 30, 2025 2:10pm Start: 03-23-2023 End: 01-06-2024 Start: 01-16-2023 End: 02-11-2024 Start: 12-06-2022 take 1 tablet by brendan every eight hours as needed ondansetron (ZOFRAN) [...] Provider: Leyda Hinkle Start: 12-29-2017 End: 11-20-2022 ondansetron 4 mg disintegrating tablet unsure of dose Comment on above: Take 1 tablet by brendan every 8 hours as needed. Take 1 tablet by brendan th every 8 hours as needed for nausea/vomiting. ondansetron (ZOFRAN-ODT) disintegrating tablet 4 mg (1 source) Start: 02-07-2022 ondansetron (ZOFRAN-ODT) disintegrating tablet 4 mg oxyCODONE hydrochloride 5 mg oral tablet (14 sources) Opioid Agonist Start: 07-17-2025 Start: 04-19-2023 End: 01-06-2024 Start: 04-19-2023 End: 01-06-2024 take 1 tablet by mouth every four hours as needed for pain Oxycodone 5 mg Tablet Discontinued 5 MG PO Every 4 hours as needed for Pain (Scale Score 7-10) 42 April 19, 2023 January 06, 2024 4:09pm pantoprazole 40 mg delayed r elease oral tablet (20 sources) Proton Pump Inhibitor Start: 07-17-2025 Start: 04-19-2023 End: 02-11-2024 Start: 08-29-2021 End: 03-23-2023 Protonix 40 mg g ranules delayed-release packet take 1 packet (40 mg) mixed in 1 teaspoonful of applesauce or apple juice by oral route once daily unsure of dose polyethylene glycol 3350 170 00 mg powder for oral solution (20 sources) Osmotic Laxative Start: 07-17-2025 Start: 04-19-2023 End: 01-22-2024 Start: 02-07-2022 End: 01-22-2024 Polyethylene Glycol 3350 [...] extended release oral tablet (20 sources) Start: 04-03-2025 Start: 01-06-2024 End: 01-30-2025 Start: 09-22-2023 take 1 tablet by brendan th every twelve hours Potassium Citrate ER 15 MEQ (1620 MG) 1 tablet with meals Orally Twice a day for 90 days Sep, Active Start: 02-17-2019 End: 03-23-2023 Start: 03-05-2016 take 1 tablet by brendan [...] daily. pyridostigmine bromide 60 mg oral tablet (8 sources) Start: 03-31-2025 Rx Discharge Order Notice (1 source) Start: 07-17-2025 SUMAtriptan 50 mg oral table t (20 sources) Serotonin-1b and Serotonin-1d Receptor Agonist Start: 06-28-2025 Start: 09-30-2024 take 1 tablet by brendan [...] 11 09/30/2024 Active Start: 06-21-2024 End: 01-30-2025 Start: 06-21-2024 Sumatriptan Villegas ccinate Active MG [...] 02/09/2024 Discontinued (Reorder) Start: 02-18-2022 End: 03-23-2023 Start: 02-07-2022 take 1 dose by mouth [...] 08-29-2021 End: 01-06-2024 take 1 capsule by [facility] every twenty-four hours in the morning tolterodine LA (DETROL LA) 4 mg 24 hr capsule Take 1 capsule (4 mg total) by mouth in the morning. Active Detrol LA 2 mg c apsule,extended release unsure of dose Comment on above: Take 4 mg by mouth o nce daily. topiramate 100 mg oral tablet (20 sources) Start: 11-19-2021 take 1 capsule by mouth once daily topiramate oral capsule,sprinkle,ER 24hr 100 mg 11/19/2021 take 1 capsule (100 mg) by oral route once daily Start: 02-17-2019 End: 06-14-2025 Start: 02-07-2019 End: 11-20-2022 Start: 07-07-2018 End: 06-14-2025 take 1 tablet by mouth twice daily Topiramate 100 mg tablet Discontinued 100 MG PO Twice daily January 06, 2024 12:00am June 07, 2024 5:10pm [employer] Tablet Orally BID; Note: Source Status: Taking; Refills: 3; Qty: 180 Tablet; Provider: Leyda Hinkle Comment on above: Take 1 tablet by brendan th twice daily. trifluridine 10 mg/ml ophtha lmic solution (6 sources) Nucleoside Analog Antiviral, Nucleoside Metabolic Inhibitor Start: 10-03-2024 Start: 10-03-2024 Trifluridine 1 % drops Active 1 DROPS EYE-LEFT Every 2 hours 7.5 October 03, 2024 1:00am administer 9 doses per day while awake 24 hr venlafaxine 75 mg extended release oral capsule (20 sources) Serotonin and Norepinephrine Reuptake Inhibitor Start: 06-21-2024 End: 01-30-2025 Start: 11-16-2023 End: 11-15-2024 take 1 capsule by mouth every twenty-four hours Venlafaxine 150 mg capsule,extended release 24hr Discontinued 150 MG PO June 21, 2024 12:00am September 12, 2024 12:24pm Start: 03-23-2023 End: 06-09-2025 Start: 03-23-2023 End: 06-09-2025 take 1 capsule by mouth once daily Start: 03-23-2023 End: 03-23-2023 Start: 01-16-2023 venlafaxine 37 .5 mg Cap-ER Refills(s) 0 Start Date: 01/16/23 Status: Ordered Repeat number: 1 Start: 01-09-2023 End: 11-16-2023 take 1 capsule by mouth every twenty-four hours in the morning venlafaxine XR (EFFEXOR XR) 75 mg 24 hr capsule Indications: Current moderate episode of major depressive disorder without prior episode ([facility] L[place]) Take 1 capsule (75 mg total) by mouth in the morning. 90 capsule 3 01/09/2023 11/16/2023 Discontinued (Dose adjustment) vitamin b6 100 mg oral table t (2 sources) Start: 07-17-2025 zinc oxide 0.2 mg/mg topical ointment (20 sources) Start: 01-06-2024 End: 07-17-2025 Zinc Oxide 20 % ointment Discontinued 1 APPLIC TOPICAL As Directed January 06, 2024 12:00am July 17, 2025 11:06am Start: 04-19-2023 End: 07-17-2025 Start: 04-19-2023 End: 01-06-2024 Zinc Oxide 20 % Ointment Dis continued 1 APPLIC TOPICAL Three times daily 11 17April 19, 2023 12:00am January 06, 2024 4:10pm zinc oxide 20 % ointment Apply 1 Application topically as needed. Active Zinc Oxide 20 % as directed Externally Active Zinc Oxide 20 % as directed Externally Active (13 sources) Start: 07-17-2025 Start: 01-30-2025 End: 01-30-2025 Start: 01-30-2025 End: 01-30-2025 Start: 01-06-2024 Start: 01-06-2024 End: 02-11-2024 Start: 01-06-2024 End: 04-05-2025 Start: 01-06-2024 End: 04-05-2025 Start: 01-06-2024 End: 04-05-2025 Start: 04-19-2023 End: 01-06-2024 Start: 03-07-2022 End: 03-23-2023 Start: 02-18-2022 End: 03-23-2023 Start: 02-17-2019 End: 03-23-2023 Start: 02-17-2019 End: 08-29-2021 Completed/Discontinued Medications Medication Drug Class(es) Dates Sig (Normalized) Sig (Original) acarbose 25 mg oral tablet (20 sources) alpha-Glucosidase Inhibitor Start: 02-07-2022 take 25 mg by mouth three times daily at mealtime 25 mg, Oral, 3 TIMES DAILY WITH MEALS, First dose on Thu02/07/22 at 1700, Until Discontinued Start: 01-13-2019 End: 07-25-2024 Start: 12-29-2007 End: 12-06-2022 acarbose(PRECOSE 25 MG TAB) Indications: Hypoglycemia, unspecified , Obesity, unspecified Take one(1) tablet three(3) times daily. 1 month supply 3 12/29/2007 12/06/2022 Discontinued Comment on above: Take one(1) tablet t hree(3) times daily. acetaminophen 325 mg / oxyCO DONE hydrochloride 5 mg oral tablet (12 sources) Opioid Agonist Start: 03-07-2022 End: 03-23-2023 Start: 03-07-2022 End: 03-23-2023 take 1 tablet by mouth every six hours as needed for pain Oxycodone-Acetaminophen 5-325 mg Tablet Discontinued 1 TAB PO [...] breath. amitriptyline hydrochloride 100 mg oral tablet (13 sources) Tricyclic Antidepressant Start: 02-17-2019 End: 08-29-2021 Start: 10-22-2011 End: 11-20-2022 take 2 tablets [...] Take 1 tablet by brendan twice daily. atorvastatin 10 mg oral tablet (20 sources) HMG-CoA Reductase Inhibitor Start: 09-17-20 End: 09-19-20 Comment on above: Take 10 mg by mouth once daily. azithromycin 250 mg oral tablet (6 sources) Macrolide Antimicrobial Start: 10-18-20 End: 12-30-19 25 Balsam [place] Oil (4 sources) Start: 03-07-20 End: 03-23-20 23 Balsam [place] Oil Discontinued 1 APPLIC TOPICAL Three times daily 60 March 07, 2022 12:00am March 23, 2023 1:58pm Balsam [place] Oil Ointment (5 sources) Start: 03-07-20 End: 03-23-20 23 Balsam [place] Oil Ointment Discontinued 1 APPLIC TOPICAL Three times daily 60 March 07, 2022 12:00am March 23, 2023 1:58pm Start: 03-07-2022 End: 03-23-2023 Balsam [place] Oil Ointm ent Discontinued 1 APPLIC TOPICAL [...] sources) Non-narcotic Antitussive Start: 12-06-2022 End: 01-30-2025 Comment on above: Take 1 capsule by tn ut three times daily as needed for cough. [...] Start: 02-07-2022 take 10 mg rectal ro [place] once daily as needed 10 mg, Rectal, DAILY PRN, Starting on Thu02/07/22 at 1617, Until Discontinued, Constipation First line therapy for constipation Post-op 120 actuat budesonide 0.16 mg/actuat / formoterol fumarate 0.0045 mg/actuat metered dose inhaler (20 sources) Corticosteroid, beta2-Adrenergic Agonist Start: 03-07-2022 End: 03-23-2023 Start: 03-07-2022 End: 03-23-2023 take 1 puff(s) by inhalation twice daily Budesonide-Formoterol (Symbicort) 160-4.5 mcg/actuation Hfa Aerosol Inhaler Discontinued 2 PUFF INHALATION Twice daily 11 17March 07, 2022 9:01am March 23, 2023 1:58pm Start: 02-17-2019 End: 03-07-2022 Start: 02-17-2019 End: 03-07-2022 take 1 puff(s) [...] 20 mL IV syringe (1 source) Start: 02-07-2022 End: 02-08-2022 2,000 mg, IntraVENous, EVERY 8 HOURS, 2 doses, First dose on Thu02/07/22 at 1845, Last dose on 02/08/22 at 0245 Antimicrobial Indications: Surgical Prophylaxis Administer over 5 mins. Post-op cefdinir 300 mg oral capsule (13 sources) Cephalosporin Antibacterial Start: 05-23-2025 End: 06-28-2025 Start: 02-23-2024 End: 03-04-2024 take 1 capsule [...] day(s), # 20 cap(s), Refills(s) 0, Pharmacy: [facility], 175, cm, 03/20/23 9:07:00 EDT, Height/Length Dosing, 92, kg, 03/20/23 9:07:00 EDT, Weight Dosing Start Date: 06/11/23 Stop Date: 06/21/23 Status: Ordered take 1 capsule by [facility] every twelve hours Cefdinir 300 MG 1 capsule Orally bid Active cosyntropin (CORTROSYN) injection 250 mcg (1 source) Start: 02-09-2022 End: 02-09-2022 cosyntropin (CORTROSYN) injection 250 mcg cyclobenzaprine hydrochloride 5 mg oral tablet (12 sources) Muscle Relaxant Start: 03-07-2022 End: 03-23-2023 Start: 02-07-2022 End: 02-23-2022 take 1 tablet by mouth three times daily as needed for muscle spasms cyclobenzaprine (FLEXERIL) 10 MG tablet Take 1 tablet by mouth 3 times daily as needed for Muscle spasms 30 tablet 0 02/13/2022 02/23/2022 Active docusate sodium 100 mg oral capsule (20 sources) Start: 06-27-2021 End: 04-19-2023 Start: 05-04-2020 End: 12-06-2022 Docusate Sodium Discontinued 100 MG PO As Directed August 29, 2021 1:00am March 07, 2022 9:03am Comment on above: Take 1 capsule by mo ut twice daily. docusate sodium 50 mg / sennosides, detention 8.6 mg oral tablet (1 source) Start: take 1 tablet by mouth twice daily 1 tablet, Oral, 2 TIMES DAILY, First dose on Thu02/07/22 at 2100, Until Discontinued, Post-op 500 ml DOPamine hydrochloride 1.6 mg/ml injection (1 source) Catecholamine Start: 2 End: 2 DOPamine (INTROPIN) 400 mg in dextrose 5 % 250 mL infusion DULoxetine 60 mg delayed release oral capsule (20 sources) Serotonin and Norepinephrine Reuptake Inhibitor Start: 6 End: 4 take 1 capsule by mouth twice da giuliano Cymbalta 20 mg capsule,delayed release take 1 capsule (20 mg) by oral route 2 times per day unsure of dose Comment on above: Take 1 capsule by [facility] once daily. ezetimibe 10 mg oral tablet (20 sources) Dietary Cholesterol Absorption Inhibitor Start: 09-17-2017 End: 08-10-2024 Comment on above: Take 10 mg by [...] sources) Opioid Agonist Start: 03-23-2023 End: 04-19-2023 Start: 01-16-2023 End: 01-30-2025 hydromorphone Discontinued 2 [...] days. hydrOXYzine hydrochloride 50 mg oral tablet (13 sources) Antihistamine Start: 02-17-2019 End: 08-29-2021 Start: 05-26-2017 End: 11-20-2022 take 2 tablets [...] Toradol per 15 mg Jan, 2ml Lanolin Cxhkmoi-Es-S.Pet-Cer es (Minerin Creme) Cream (9 sources) Start: 04-19-2023 End: 01-06-2024 Lanolin Iudfutw-Be-E.Pet-Cer es (Minerin Creme) Cream Discontinued 1 APPLIC TOPICAL Twice daily 11 17April 18, 2023 11:00pm January 06, 2024 3:09pm Start: 04-19-2023 End: 01-06-2024 Lanolin Teryhar-Dx-B.Pet-Cer es (Minerin Creme) Cream Discontinued 1 APPLIC TOPICAL Twice daily 11 17April 19, 2023 12:00am January 06, 2024 4:09pm linaclotide 0.145 mg oral ca psule (20 sources) Guanylate Cyclase-C Agonist Start: 02-17-2019 End: 03-23-2023 Start: 10-15-2017 Linzess 145 14 5mcg one PO daily for 90 days Sep, Not-Taking Start: 10-15-2017 Linzess 145 14 5mcg one PO daily for 90 days Sep, Active Comment on above: Take 145 mcg by mout h once daily. magnesium hydroxide 80 mg/ml oral suspension (3 sources) Start: 04-27-2017 End: 11-20-2022 take 15 mL by mouth once daily [...] 48 hrs. melatonin 5 mg oral tablet (10 sources) Start: 04-19-2023 End: 01-06-2024 Start: 04-19-2023 End: 01-06-2024 Melatonin 5 mg Tablet Discon tinued 5 MG PO 2300 0 April 19, 2023 12:00am January 06, 2024 4:09pm metFORMIN hydrochloride 500 mg oral tablet (20 sources) Biguanide Start: 06-21-2024 End: 07-17-2025 Start: 03-07-2022 End: 03-23-2023 Start: 02-07-2022 End: 03-23-2023 take 1 tablet by mouth twice daily at mealtime Metformin 500 mg Tablet Discontinued 500 MG PO Twice daily with meals 60 March 07, 2022 12:00am March 23, 2023 1:58pm Start: 02-17-2019 End: 11-20-2022 take 1 tablet by brendan th every twelve hours at mealtime metFORMIN HCl - 500 MG Oral Tablet TAKE 1 TABLET EVERY 12 HOURS WITH FOOD. Quantity: 0 Refills: 0 Ordered: 16-Aug-2021 DO Active Comment on above: Take 1,000 mg by brendan th twice daily with meals. Methylprednisolone (12 sources) Corticosteroid Start: 10-18-2024 End: 12-29-2024 Start: 10-18-2024 End: 12-29-2024 take 1 tablet by mouth once Methylprednisolone [...] mirabegron 50 mg extended release oral tablet (10 sources) beta3-Adrenergic Agonist Start: 02-17-2019 End: 10-14-2019 Miscellaneous Medical Supply misc (5 sources) Start: [...] Leukotriene Receptor Antagonist Start: 12-06-2022 End: 01-13-2025 Comment on above: Take 1 tablet by [...] Leyda Hughes ( ) Start: 04-19-2023 End: 01-22-2024 Start: 04-19-2023 End: 01-06-2024 Nystatin (Nystop) 100,000 un it/gram Powder Discontinued 1 APPLIC TOPICAL Three times daily 11 17April 19, 2023 12:00am January 06, 2024 4:09pm Nystatin 461124 UNIT/GM 1 application Externally Twice a day Active Mccormick-3 Fatty Acids (4 sources) Start: 02-18-2022 End: 03-23-2023 take 1000 mg by mouth once daily in the morning Mccormick-3 Fatty Acids Discontinued 1000 MG PO Every morning February 18, 2022 12:00am March 23, 2023 1:58pm Mccormick-3 Fatty Acids Capsule (5 sources) Start: 02-18-2022 End: 03-23-2023 take 1 capsule by mouth once daily in the morning Mccormick-3 Fatty Acids Capsule Discontinued 1000 MG PO Every morning February 18, 2022 12:00am March 23, 2023 1:58pm Start: 02-18-2022 End: 03-23-2023 take 1 capsule by mouth once daily in the morning Mccormick-3 Fatty Acids Capsule Discontinued 1000 MG PO [...] tablet (3 sources) Cholinergic Muscarinic Antagonist End: 11-20-19 take 15 mg by mouth once daily OXYBUTYNIN CHLORIDE ORAL Take 15 mg by mouth once daily. 0 11/20/2022 Discontinued Comment on above: Take 15 mg by mouth once daily. pimavanserin 34 mg oral capsule (1 source) Atypical Antipsychotic Start: 07-03-20 End: 08-23-20 take 1 capsule by mouth once daily at bedtime pimavanserin 34 mg Take 1 capsule by mouth daily at bedtime. 30 capsule 07/03/2020 08/23/2020 Discontinued (Other) Comment on above: Take 1 capsule by mo [facility] daily at bedtime. piperacillin 4000 mg / tazobactam 500 mg injection (2 sources) Penicillin-class Antibacterial, beta Lactamase Inhibitor Start: 06-28-20 End: 07-17-20 pregabalin 300 mg oral capsule (20 sources) Start: 11-19-19 Lyrica 600 mg 11/19/2021 Take 1 twice daily Start: 02-17-2019 End: 05-11-2025 Comment on above: Take 300 mg by [...] for Nausea/Vomiting. QUEtiapine 25 mg oral tablet (14 sources) Atypical Antipsychotic Start: 01-11-20 End: 03-23-20 Comment on above: Take 1 tablet by brendan every evening. raNITIdine 150 mg oral tablet (9 sources) Histamine-2 Receptor Antagonist Start: 02-18-20 End: 08-29-20 take 1 tablet by mouth once daily Ranitidine Hcl (Zantac) 150 mg Tablet Discontinued 150 MG PO Daily February 17, 2019 12:00am August 29, 2021 10:35am rimegepant 75 mg disintegrating oral tablet (4 sources) Start: 12-30-19 End: 01-31-20 Start: 12-29-2024 End: 01-30-2025 take 1 tablet by mouth once as needed for headache Rimegepant (Nurtec Odt) 75 mg tablet,disintegrating Discontinued 75 MG PO Once as needed for migraine headache December 29, 2024 12:00am January 30, 2025 2:10pm rOPINIRole 1 mg oral tablet (20 sources) Nonergot Dopamine Agonist Start: 01-06-2024 End: 02-11-2024 Start: 04-19-2023 End: 01-06-2024 take 1 tablet by brendan th once daily at bedtime rOPINIRole HCl 1 MG 1 tablets 1 to 3 hours before bedtime Orally Once a day for 90 days Active sennosides, detention 8.6 mg oral tablet (2 sources) Start: 12-06-2022 take 1 tablet by mouth twice daily senna (SENOKOT) 8.6 mg tab Take 1 tablet by mouth twice daily. 0 12/06/2022 Active Comment on above: Take 1 tablet by brendan th twice daily. sildenafil 100 mg oral tablet (20 sources) Phosphodiesterase 5 Inhibitor Start: 02-17-2019 End: 02-18-2022 sildenafil 25 mg tablet unsure of dose [...] therapy. Post-op sucralfate 1000 mg oral tablet (13 sources) Aluminum Complex Start: 02-17-2019 End: 08-29-2021 Start: 04-28-2016 End: 11-20-2022 take 1 tablet [...] April 05, 2025 1:53pm Start: 12-27-2024 End: 06-28-2025 Start: 06-23-2024 take 1 tablet by brendan th once in the morning sulfamethoxazole-trimethoprim (BACTRIM DS) 800-160 mg per tablet Take 1 tablet by mouth in the morning and 1 tablet before bedtime. Taking Thursday, Thursday, Thursday. 06/23/2024 Active Start: 06-21-2024 End: 01-30-2025 Start: 06-21-2024 End: 01-30-2025 take 1 tablet [...] sources) alpha-Adrenergic Ching Start: 02-18-2022 End: 03-23-2023 Start: 02-07-2022 End: 02-12-2022 take 0.8 mg [...] (20 sources) Androgen Start: 02-10-2024 End: 02-11-2024 Start: 02-10-2024 End: 02-11-2024 inject 60 mg by intramuscular injection two times weekly Testosterone Cypionate Discontinued 60 MG IM .COMPLEX February 10, 2024 12:00am February 11, 2024 8:23am 60 mg intramuscularly twice a week; Start: 01-06-2024 End: 01-22-2024 Start: 04-27-2023 inject 0.3 mL by sub [...] times weekly tiZANidine 4 mg oral tablet (13 sources) Central alpha-2 Adrenergic Agonist Start: 03-17-2018 End: 11-20-2022 Comment on above: Take 1 tablet by brendan th every 8 hours as needed. TAKES 2 TAB AT HS tobramycin 3 mg/ml ophthalmi c solution (8 sources) Aminoglycoside Antibacterial Start: 08-09-2024 End: 06-28-2025 Start: 08-09-2024 End: 06-28-2025 take 0.3 drop(s) into the eye(s) every four hours Tobramycin 0.3 % drops Discontinued 2 DROPS EYE-BOTH Every 4 hours 02 22August 09, 2024 12:00am June 28, 2025 2:33pm Start: 08-09-2024 take 0.3 drop(s) int o the eye(s) every four hours Tobramycin 0.3 % drops Active 2 DROPS EYE-BOTH Every 4 hours 02 22August 09, 2024 12:00am traMADol hydrochloride 50 mg oral tablet (20 sources) Opioid Agonist Start: 04-05-2025 End: 07-17-2025 Start: 09-30-2024 End: 04-04-2025 take 1 tablet [...] tablet 5 08/03/2024 09/25/2024 Discontinued (Reorder) Start: 01-06-2024 End: 04-05-2025 take 1 tablet by mouth twice daily as needed for pain Tramadol 50 mg tablet Discontinued 50 MG PO Twice daily as needed for pain 60 30 February 10, 2024 1:40pm April 05, 2025 2:25pm Start: 11-16-2023 End: 04-05-2025 Start: 09-02-2023 take 1 tablet by brendan [...] tablet 50 mg Start: 02-17-2019 End: 10-14-2019 urea 400 mg/ml topical lotion (3 sources) End: 11-20-2022 urea (CARMOL) 40 % lotn Apply to affected area twice daily. 0 11/20/2022 Discontinued Comment on above: Apply to affected ar ea twice daily. valACYclovir 500 mg oral tablet (10 sources) Herpesvirus Nucleoside Analog DNA Polymerase Inhibitor, Herpes Simplex Virus Nucleoside Analog DNA Polymerase Inhibitor, Herpes Zoster Virus Nucleoside Analog DNA Polymerase Inhibitor Start: 02-18-2022 End: 02-18-2022 vancomycin (VANCOCIN) 1,500 mg in dextrose 5 [...] 2 Resolved: 2 Episodic Cancer of esophagus (10 sources) Malignant tumor of esophagus; Translations: [Malignant [...] 3 05-03-2020 Chronic Diabetes mellitus without complication (13 sources) Hyperglycemia, unspecified; Translations: [Other abnormal glucose] [...] lower limb ischemia ; Translations: [Atherosclerosis of [place] arteries of extremities with gangrene, bilateral legs] [...] with hemorrhage] Onset: 5 Chronic Gastrointestinal hemorrhage (7 sources) Gastrointestinal hemorrhage; Translations: [Gastrointestinal hemorrhage, unspecified] Onset: 5 06-29-2025 Episodic Genitourinary symptoms and ill-defined conditions (20 sources) Urinary incontinence; Translations: [Unspecified urinary incontinence] Onset: 2 Chronic Genitourinary symptoms and ill-defined conditions (20 sources) Urgent desire to urinate; Translations: [Urgency of urination] Onset: 6 07-31-2006 Episodic Headache; including migraine (11 sources) Migraine without aura, not refractory ; Translations: [Migraine without aura, not intractable, without status migrainosus] 02-13-2024 Chronic Headache; including migraine (19 sources) Frequent headache; Translations: [Frequent headaches] 03-24-2023 Episodic Hyperplasia of prostate (20 sources) Benign prostatic hypertrophy with outflow obstruction; Translations: [Benign prostatic hyperplasia with lower urinary tract symptoms] Onset: 0 Resolved: 3 08-12-2010 Chronic Immunizations and screening for infectious disease (16 sources) Needs influenza immunization; Translations: [Encounter for immunization] Episodic Intestinal obstruction without hernia (10 sources) Intestinal obstruction co-occurrent and due to decreased peristalsis; Translations: [Ileus, unspecified] 02-19-2022 Episodic Intracranial injury (10 sources) Concussion with loss of consciousness; Translations: [Concussion with loss of consciousness of unspecified duration, initial encounter] 05-28-2020 Episodic Miscellaneous mental health disorders (6 sources) Psychosexual dysfunction; Translations: [Unspecified sexual dysfunction not due to a substance or known physiological condition] Onset: 6 07-31-2006 Chronic Mood disorders (20 sources) Major depressive disorder, single episode, unspecified; Translations: [Depression] Onset: 3 01-16-2023 Chronic Nausea and vomiting (15 sources) Nausea; Translations: [Nausea] Onset: 2 Resolved: 2 Episodic Neoplasms of unspecified nature or uncertain behavior (20 sources) Monoclonal gammopathy of uncertain significance; Translations: [Monoclonal gammopathy] Onset: 8 09-15-2018 Chronic Nonspecific chest pain (5 sources) Chest pain; Translations: [Chest pain, unspecified] Episodic Nutritional deficiencies (5 sources) Deficiency of macronutrients; Translations: [Unspecified severe protein-calorie malnutrition] Onset: 3 12-05-2022 Chronic Open wounds of extremities (10 sources) Amputated toe; Translations: [Complete traumatic amputation [...] 12-06-2022 Episodic Other aftercare (1 source) Other fci (current) drug therapy; Translations: [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] Onset: 3 Episodic Other [...] hypotension] Onset: 3 Episodic Other circulatory disease (10 sources) Low blood pressure; Translations: [Hypotension, unspecified] [...] in stool contents] Episodic Other gastrointestinal disorders (10 sources) Diarrhea; Translations: [Diarrhea, unspecified] 01-22-2024 Episodic Other gastrointestinal disorders (10 sources) Incontinence of feces; Translations: [Full incontinence of feces] 01-22-2024 Episodic Other gastrointestinal disorders (10 sources) Mucus in stool; Translations: [Other fecal [...] injuries and conditions due to external causes (6 sources) Closed injury of head; Translations: [Unspecified [...] dysfunction, unspecified] Chronic Other male genital disorders (10 sources) Male erectile dysfunction, unspecified; Translations: [Erectile [...] unspecified] 01-06-2024 Episodic Other nervous system disorders (10 sources) Finding of hand region; Translations: [Tremor, [...] Onset: 3 12-05-2022 Episodic Residual codes; unclassified (10 sources) History of operative procedure on lumbar spinal structure; Translations: [Other specified postprocedural states] 02-19-2022 Episodic Septicemia (except in labor) (8 sources) Sepsis; Translations: [Sepsis, unspecified organism] 06-21-2024 [...] follow up as needed. Unclassified (2 sources) [facility] Unclassified (1 source) [facility] [facility], follow up 07/10/25 was canceled while admitted to Rehab, call after discharge to reschedule this appointment. Viral infection (2 sources) Disease caused by [...] 11-08-2019 11-08-2019 Episodic Other aftercare (1 source) long term care pharmacist (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; Translations: [SHELTER USE ORAL HYPOGLYCEMIC DX] Onset: 12-22-2022 Episodic [...] (20 sources) Onset: 08-25-2022 Resolved: 10-07-2024 10-07-2024 Urinary tract infections (20 sources) Acute cystitis; Translations: [Acute cystitis without hematuria] Onset: 04-27-2020 04-27-2020 Episodic Results Test Name Value Interpretation Reference Range Facility No Panel InformationOrdered By: Fidel Ibarra on 07-24-2025 Negative NEGATIVE [facility] MODERATE Abnormal NEGATIVE [facility] CLEAR CLEAR [facility] YELLOW YELLOW [facility] LARGE Abnormal NEGATIVE [facility] Positive Abnormal NEGATIVE [facility] 7.0 5.0-9.0 [facility] 30 mg/dL Abnormal NEG/TRACE [facility] 1.020 1.005-1.02 5 [facility] 1.0 EU/dL 0.2-1.0 [facility] Urine Cultureon 07-24-2025 Bacteria identified Cx Nom (U) ORGANISM: Pseudomonas aeruginosa (O:PSEAER) [place] Count >100,000 Aerobic SABI Charge (NMIC56) SUSCEPTIBILITY ORGANISM: O:PSEAER ANTIBIOTIC INTERPRETATION SABI Amikacin S <16 Aztreonam I <4 Cefepime S 4 Ceftazidime I <1 Ceftazidime/Avibactam S <4 Ceftolozane/Tazobactam S <2 [...] RESISTANT TO ALL B-LACTAM DRUGS. PERFORMED BY: [place] [address] PATHOLOGIST ASSOCIATE PROFESSOR OF SURGERY JUAN DIEGO CAMACHO M.D. Normal [facility] Comment on above: Performed By: #### C UU #### [place] [id number] [place] Orders Onlyon 07-18-2025 Orders Only Normal [facility] Glucose Poct Glucometerson 0 07-17-2025 Glucose [Mass/Vol] 95 mg/dL Normal [facility] Comment on above: Result Comment: [place] Glucose Reference Range is dependent on time and content of last meal. Glucose of more than 200 mg/dL in a nonstressed, ambulatory subject supports the diagnosis of Diabetes Mellitus. PERFORMED BY: [place] [address] PATHOLOGIST ASSOCIATE PROFESSOR OF SURGERY JUAN DIEGO CAMACHO M.D. Performed By: #### L IPID, CMP, PSAS, TSH3, CBC #### [facility] [address] [place], [place] [id number] [facility] Glucose Poct Glucometerson 0 07-16-2025 Glucose [Mass/Vol] 104 mg/dL Normal [facility] Comment on above: Result Comment: [place] Glucose Reference Range is dependent on time and content of last meal. Glucose of more than 200 mg/dL in a nonstressed, ambulatory subject supports the diagnosis of Diabetes Mellitus. PERFORMED BY: [place] [address] PATHOLOGIST ASSOCIATE PROFESSOR OF SURGERY JUAN DIEGO CAMACHO M.D. Performed By: #### G LULS #### Point of Care testing , Glucose [Mass/Vol] 218 mg/dL Normal [facility] Comment on above: Result Comment: [facility] Glucose Reference Range is dependent on time and content of last meal. Glucose of more than 200 mg/dL in a nonstressed, ambulatory subject supports the diagnosis of Diabetes Mellitus. PERFORMED BY: [place] [address] PATHOLOGIST ASSOCIATE PROFESSOR OF SURGERY JUAN DIEGO CAMACHO M.D. Performed By: #### L IPID, CMP, PSAS, TSH3, CBC #### [place] [id number] [facility] Glucose Poct Glucometerson 0 07-15-2025 Commemt1 Glu2: Cleaned Meter Normal [facility] Comment on above: Result Comment: PERF ORMED BY: [place] [id number] PATHOLOGIST ASSOCIATE PROFESSOR OF SURGERY JUAN DIEGO CAMACHO M.D. Performed By: #### L IPID, CMP, PSAS, TSH3, CBC #### [place] [id number] [facility] Glucose [Mass/Vol] 136 mg/dL Normal [facility] Comment on above: Result Comment: [facility] Glucose Reference Range is dependent on time and content of last meal. Glucose of more than 200 mg/dL in a nonstressed, ambulatory subject supports the diagnosis of Diabetes Mellitus. Performed By: #### L IPID, CMP, PSAS, TSH3, CBC #### [address] [id number] [place] Commemt1 Glu2: Cleaned Meter Normal [facility] Comment on above: Result Comment: PERF ORMED BY: [place] [address] PATHOLOGIST ASSOCIATE PROFESSOR OF SURGERY JUAN DIEGO CAMACHO M.D. Performed By: #### L IPID, CMP, PSAS, TSH3, CBC #### [address] Glucose [Mass/Vol] 72 mg/dL Normal [facility] Comment on above: Result Comment: [facility] Glucose Reference Range is dependent on time and content of last meal. Glucose of more than 200 mg/dL in a nonstressed, ambulatory subject supports the diagnosis of Diabetes Mellitus. Performed By: #### L IPID, CMP, PSAS, TSH3, CBC #### [address] Basic Metabolic Panelon 09-2 Anion gap [Moles/Vol] 6.3 mmol/L Normal 6.0-15.0 [facility] Comment on above: Performed By: #### L IPID, CMP, PSAS, TSH3, CBC #### [place] [address] [place] Calcium [Mass/Vol] 8.7 mg/dL Normal 8.6-10.3 [facility] Comment on above: Performed By: #### L IPID, CMP, PSAS, TSH3, CBC #### [place] [address] [place] Chloride [Moles/Vol] 101 mmol/L Normal 98-107 [facility] Comment on above: Performed By: #### L IPID, CMP, PSAS, TSH3, CBC #### [place] [address] [place] CO2 [Moles/Vol] 32.7 mmol/L High 21.0-31.0 The [facility] Comment on above: Performed By: #### L IPID, CMP, PSAS, TSH3, CBC #### [address] [address] [place] Creatinine [Mass/Vol] 0.96 mg/dL Normal 0.70-1.30 [facility] Comment on above: Performed By: #### L IPID, CMP, PSAS, TSH3, CBC #### [address] Creatinine Clr Calc Pharmacy 90.36 Normal [facility] Comment on above: Result Comment: PERF ORMED BY: [place] [address] PATHOLOGIST ASSOCIATE PROFESSOR OF SURGERY JUAN DIEGO CAMACHO M.D. Performed By: #### L IPID, CMP, PSAS, TSH3, CBC #### [address] GFR/1.73 sq M.predicted MDRD (S/P/Bld) [Vol rate/Area] mL/min/{1.73_m2} Normal [facility] Comment on above: Performed By: #### L IPID, CMP, PSAS, TSH3, CBC #### [address] Glucose [Mass/Vol] 102 mg/dL High 70-100 [facility] Comment on above: Result Comment: [place] Glucose Reference Range is dependent on time and content of last meal. Glucose of more than 200 mg/dL in a nonstressed, ambulatory subject supports the diagnosis of Diabetes Mellitus. ADA recommended reference range Performed By: #### L IPID, CMP, PSAS, TSH3, CBC #### [address] Potassium [Moles/Vol] 4.0 mmol/L Normal 3.5-5.1 [facility] Comment on above: Performed By: #### L IPID, CMP, PSAS, TSH3, CBC #### [address] Sodium [Moles/Vol] 136 mmol/L Normal 136-145 [facility] Comment on above: Performed By: #### L IPID, CMP, PSAS, TSH3, CBC #### [facility] [address] Urea nitrogen [Mass/Vol] 12 mg/dL Normal 7-25 [facility] Comment on above: Performed By: #### L IPID, CMP, PSAS, TSH3, CBC #### [facility] [address] Glucose Poct Glucometerson 0 07-14-2025 Glucose [Mass/Vol] 117 mg/dL Normal [facility] Comment on above: Result Comment: [place] om Glucose Reference Range is dependent on time and content of last meal. Glucose of more than 200 mg/dL in a nonstressed, ambulatory subject supports the diagnosis of Diabetes Mellitus. PERFORMED BY: [place] [address] PATHOLOGIST ASSOCIATE PROFESSOR OF SURGERY JUAN DIEGO CAMACHO M.D. Performed By: #### L IPID, CMP, PSAS, TSH3, CBC #### [address] Commemt1 Glu2: Cleaned Meter Normal The [facility] Comment on above: Result Comment: PERF ORMED BY: [place] [address] PATHOLOGIST ASSOCIATE PROFESSOR OF SURGERY JUAN DIEGO CAMACHO M.D. Performed By: #### L IPID, CMP, PSAS, TSH3, CBC #### [address] Glucose [Mass/Vol] 95 mg/dL Normal [facility] Comment on above: Result Comment: [place] om Glucose Reference Range is dependent on time and content of last meal. Glucose of more than 200 mg/dL in a nonstressed, ambulatory subject supports the diagnosis of Diabetes Mellitus. Performed By: #### L IPID, CMP, PSAS, TSH3, CBC #### [place] [address] [place] Scan and CBCon 07-14-2025 Anisocytosis Ql (Bld) Slight Normal [facility] Comment on above: Performed By: #### L IPID, CMP, PSAS, TSH3, CBC #### [address] Basophils (Bld) [#/Vol] 0.0 10*3/uL Normal 0.0-0.2 [facility] Comment on above: Performed By: #### L IPID, CMP, PSAS, TSH3, CBC #### [address] Basophils/100 WBC (Bld) 0.2 % Normal . [facility] Comment on above: Performed By: #### L IPID, CMP, PSAS, TSH3, CBC #### [address] Eosinophils (Bld) [#/Vol] 0.2 10*3/uL Normal 0.0-0.45 [facility] Comment on above: Performed By: #### L IPID, CMP, PSAS, TSH3, CBC #### [address] Eosinophils/100 WBC (Bld) 4.4 % Normal . [facility] Comment on above: Performed By: #### L IPID, CMP, PSAS, TSH3, CBC #### [address] Erythrocyte distribution width (RBC) [Ratio] 15.4 % High 12.0-14.8 [facility] Comment on above: Performed By: #### L IPID, CMP, PSAS, TSH3, CBC #### [address] Hematocrit (Bld) [Volume fraction] 35.5 % Low 38.8-50.0 [facility] Comment on above: Performed By: #### L IPID, CMP, PSAS, TSH3, CBC #### [address] Hemoglobin (Bld) [Mass/Vol] 11.4 g/dL Low 13.0-17.0 [facility] Comment on above: Performed By: #### L IPID, CMP, PSAS, TSH3, CBC #### [address] Large Platelets Slight Normal [facility] Comment on above: Result Comment: PERF ORMED BY: [place] [address] PATHOLOGIST ASSOCIATE PROFESSOR OF SURGERY JUAN DIEGO CAMACHO M.D. Performed By: #### L IPID, CMP, PSAS, TSH3, CBC #### [address] Lymphocytes (Bld) [#/Vol] 0.9 10*3/uL Low 1.00-4.8 [facility] Comment on above: Performed By: #### L IPID, CMP, PSAS, TSH3, CBC #### [address] Lymphocytes/100 WBC (Bld) 20.5 % Normal . [facility] Comment on above: Performed By: #### L IPID, CMP, PSAS, TSH3, CBC #### [address] MCH (RBC) [Entitic mass] 28.9 pg Normal 27.5-35.2 [facility] Comment on above: Performed By: #### L IPID, CMP, PSAS, TSH3, CBC #### [address] MCV (RBC) [Entitic vol] 90.0 fL Normal 83.5-101 [facility] Comment on above: Performed By: #### L IPID, CMP, PSAS, TSH3, CBC #### [address] Mean Corpuscular HGB Conc 32.1 g/dL Low 32.5-35.6 [facility] Comment on above: Performed By: #### L IPID, CMP, PSAS, TSH3, CBC #### [address] Monocytes (Bld) [#/Vol] 0.4 10*3/uL Normal 0.0-0.8 [facility] Comment on above: Performed By: #### L IPID, CMP, PSAS, TSH3, CBC #### [address] Monocytes/100 WBC (Bld) 9.4 % Normal . [facility] Comment on above: Performed By: #### L IPID, CMP, PSAS, TSH3, CBC #### [address] Neutrophils (Bld) [#/Vol] 2.8 10*3/uL Normal 1.8-7.7 [facility] Comment on above: Performed By: #### L IPID, CMP, PSAS, TSH3, CBC #### [address] Neutrophils/100 WBC (Bld) 65.5 % Normal . [facility] Comment on above: Performed By: #### L IPID, CMP, PSAS, TSH3, CBC #### [address] NRBC% 0.2 /100{WBC} Normal 0-0.5 [facility] Comment on above: Performed By: #### L IPID, CMP, PSAS, TSH3, CBC #### [address] Platelet Estimate Decreased Normal Normal The [facility] Comment on above: Performed By: #### L IPID, CMP, PSAS, TSH3, CBC #### [address] Platelet mean volume (Bld) [Entitic vol] 11.4 fL High 6.6-10.1 The [facility] Comment on above: Performed By: #### L IPID, CMP, PSAS, TSH3, CBC #### [place] [address] [place] Platelets (Bld) [#/Vol] 113 10*3/uL Low 150-450 [facility] Comment on above: Performed By: #### L IPID, CMP, PSAS, TSH3, CBC #### [address] [place] [address] [place] RBC (Bld) [#/Vol] 3.95 10*6/uL Normal 3.90-5.60 [facility] Comment on above: Performed By: #### L IPID, CMP, PSAS, TSH3, CBC #### [facility] [address] WBC (Bld) [#/Vol] 4.2 10*3/uL Normal 4.1-10.5 [facility] Comment on above: Performed By: #### L IPID, CMP, PSAS, TSH3, CBC #### [facility] [address] White Blood Count 4.2 [CFU]/mL Normal 4.1-10.5 [facility] Comment on above: Performed By: #### L IPID, CMP, PSAS, TSH3, CBC #### [address] Glucose Poct Glucometerson 0 07-13-2025 Glucose [Mass/Vol] 126 mg/dL Normal [facility] Comment on above: Result Comment: [facility] Glucose Reference Range is dependent on time and content of last meal. Glucose of more than 200 mg/dL in a nonstressed, ambulatory subject supports the diagnosis of Diabetes Mellitus. PERFORMED BY: [place] [address] PATHOLOGIST ASSOCIATE PROFESSOR OF SURGERY JUAN DIEGO CAMACHO M.D. Performed By: #### L IPID, CMP, PSAS, TSH3, CBC #### [address] Glucose [Mass/Vol] 98 mg/dL Normal [facility] Comment on above: Result Comment: [facility] Glucose Reference Range is dependent on time and content of last meal. Glucose of more than 200 mg/dL in a nonstressed, ambulatory subject supports the diagnosis of Diabetes Mellitus. PERFORMED BY: [place] [address] PATHOLOGIST ASSOCIATE PROFESSOR OF SURGERY JUAN DIEGO CAMACHO M.D. Performed By: #### L IPID, CMP, PSAS, TSH3, CBC #### [facility] [address] [place] [address] [place] Glucose Poct Glucometerson 0 07-12-2025 Glucose [Mass/Vol] 116 mg/dL Normal [facility] Comment on above: Result Comment: [place] om Glucose Reference Range is dependent on time and content of last meal. Glucose of more than 200 mg/dL in a nonstressed, ambulatory subject supports the diagnosis of Diabetes Mellitus. PERFORMED BY: [place] [address] PATHOLOGIST ASSOCIATE PROFESSOR OF SURGERY JUAN DIEGO CAMACHO M.D. Performed By: #### L IPID, CMP, PSAS, TSH3, CBC #### [facility] [address] [place] [id number] [place] Glucose [Mass/Vol] 225 mg/dL Normal [facility] Comment on above: Result Comment: [place] om Glucose Reference Range is dependent on time and content of last meal. Glucose of more than 200 mg/dL in a nonstressed, ambulatory subject supports the diagnosis of Diabetes Mellitus. PERFORMED BY: [place] [address] PATHOLOGIST ASSOCIATE PROFESSOR OF SURGERY JUAN DIEGO CAMACHO M.D. Performed By: #### C UU #### [place] [id number] [place] Glucose [Mass/Vol] 117 mg/dL Normal [facility] Comment on above: Result Comment: [place] om Glucose Reference Range is dependent on time and content of last meal. Glucose of more than 200 mg/dL in a nonstressed, ambulatory subject supports the diagnosis of Diabetes Mellitus. PERFORMED BY: [place] [address] PATHOLOGIST ASSOCIATE PROFESSOR OF SURGERY JUAN DIEGO CAMACHO M.D. Performed By: #### C UU #### [place] [id number] [place] Glucose Poct Glucometerson 0 07-11-2025 Glucose [Mass/Vol] 156 mg/dL Normal [facility] Comment on above: Result Comment: [place] om Glucose Reference Range is dependent on time and content of last meal. Glucose of more than 200 mg/dL in a nonstressed, ambulatory subject supports the diagnosis of Diabetes Mellitus. PERFORMED BY: [place] [id number] PATHOLOGIST ASSOCIATE PROFESSOR OF SURGERY JUAN DIEGO CAMACHO M.D. Performed By: #### L IPID, CMP, PSAS, TSH3, CBC #### [place] [id number] [facility] 36on 07-10-2025 36 Per verbal order of Dr. Luis patient should continue wound vacc for 4 weeks Nurse at [facility] notified Normal [facility] Glucose Poct Glucometerson 0 07-10-2025 Glucose [Mass/Vol] 139 mg/dL Normal [facility] Comment on above: Result Comment: [place] om Glucose Reference Range is dependent on time and content of last meal. Glucose of more than 200 mg/dL in a nonstressed, ambulatory subject supports the diagnosis of Diabetes Mellitus. PERFORMED BY: [place] [address] PATHOLOGIST ASSOCIATE PROFESSOR OF SURGERY JUAN DIEGO CAMACHO M.D. Performed By: #### L IPID, CMP, PSAS, TSH3, CBC #### [place] [id number] [facility] Glucose [Mass/Vol] 122 mg/dL Normal [facility] Comment on above: Result Comment: [place] om Glucose Reference Range is dependent on time and content of last meal. Glucose of more than 200 mg/dL in a nonstressed, ambulatory subject supports the diagnosis of Diabetes Mellitus. PERFORMED BY: [place] [address] PATHOLOGIST ASSOCIATE PROFESSOR OF SURGERY JUAN DIEGO CAMACHO M.D. Performed By: #### C UU #### [place] [id number] [facility] Glucose Poct Glucometerson 0 07-09-2025 Glucose [Mass/Vol] 100 mg/dL Normal [facility] Comment on above: Result Comment: [place] om Glucose Reference Range is dependent on time and content of last meal. Glucose of more than 200 mg/dL in a nonstressed, ambulatory subject supports the diagnosis of Diabetes Mellitus. PERFORMED BY: [place] [address] PATHOLOGIST ASSOCIATE PROFESSOR OF SURGERY JUAN DIEGO CAMACHO M.D. Performed By: #### C UU #### [address] Glucose [Mass/Vol] 84 mg/dL Normal [facility] Comment on above: Result Comment: [facility] Glucose Reference Range is dependent on time and content of last meal. Glucose of more than 200 mg/dL in a nonstressed, ambulatory subject supports the diagnosis of Diabetes Mellitus. PERFORMED BY: [place] [address] PATHOLOGIST ASSOCIATE PROFESSOR OF SURGERY JUAN DIEGO CAMACHO M.D. Performed By: #### C UU #### [address] Dipstick and Microscopicon 0 07-08-2025 Amorphous Crystal,Urine 1+ [HPF] Normal [facility] Comment on above: Order Comment: Name Collection Type:: Suprapubic Collection Performed By: #### L IPID, CMP, PSAS, TSH3, CBC #### [address] Appearance (U) Cloudy Critically abnormal Clear [facility] Comment on above: Order Comment: Name Collection Type:: Suprapubic Collection Performed By: #### L IPID, CMP, PSAS, TSH3, CBC #### [place] [address] [place] Bacteria,Urine Rare Normal None Seen The [facility] Comment on above: Order Comment: Name Collection Type:: Suprapubic Collection Performed By: #### L IPID, CMP, PSAS, TSH3, CBC #### [place] [address] [place] Bilirubin,Urine Negative Normal Negative [facility] Comment on above: Order Comment: Name Collection Type:: Suprapubic Collection Performed By: #### L IPID, CMP, PSAS, TSH3, CBC #### [address] [place] Yeast,Urine 2+ [HPF] Normal None Seen The [facility] Comment on above: Order Comment: Name Collection Type:: Suprapubic Collection Result Comment: PERF ORMED BY: [place] [address] PATHOLOGIST ASSOCIATE PROFESSOR OF SURGERY JUAN DIEGO CAMACHO M.D. Performed By: #### L IPID, CMP, PSAS, TSH3, CBC #### [address] Color (U) Yellow Normal Yellow [facility] Comment on above: Order Comment: Name Collection Type:: Suprapubic Collection Performed By: #### L IPID, CMP, PSAS, TSH3, CBC #### [address] Glucose Ql (U) Normal Normal Normal [facility] Comment on above: Order Comment: Name Collection Type:: Suprapubic Collection Performed By: #### L IPID, CMP, PSAS, TSH3, CBC #### [address] Granular Casts, Urine 1-2 Normal None Seen [facility] Comment on above: Order Comment: Name Collection Type:: Suprapubic Collection Performed By: #### L IPID, CMP, PSAS, TSH3, CBC #### [address] Hyaline Casts,Urine 0-8 Normal 0-8 [facility] Comment on above: Order Comment: Name Collection Type:: Suprapubic Collection Performed By: #### L IPID, CMP, PSAS, TSH3, CBC #### [address] Ketones Ql (U) Negative Normal Negative [facility] Comment on above: Order Comment: Name Collection Type:: Suprapubic Collection Performed By: #### L IPID, CMP, PSAS, TSH3, CBC #### [address] Leukocyte esterase Test strip Ql (U) 4+ Normal Negative [facility] Comment on above: Order Comment: Name Collection Type:: Suprapubic Collection Performed By: #### L IPID, CMP, PSAS, TSH3, CBC #### [address] Mucus,Urine Rare Normal [facility] Comment on above: Order Comment: Name Collection Type:: Suprapubic Collection Performed By: #### L IPID, CMP, PSAS, TSH3, CBC #### [address] Nitrite,Urine Negative Normal Negative [facility] Comment on above: Order Comment: Name Collection Type:: Suprapubic Collection Performed By: #### L IPID, CMP, PSAS, TSH3, CBC #### [address] Occult Blood,Urine Negative Normal Negative [facility] Comment on above: Order Comment: Name Collection Type:: Suprapubic Collection Result Comment: PERF ORMED BY: [place] [address] PATHOLOGIST ASSOCIATE PROFESSOR OF SURGERY JUAN DIEGO CAMACHO M.D. Performed By: #### L IPID, CMP, PSAS, TSH3, CBC #### [address] pH (U) 7.5 [pH] Normal 5.0-9.0 [facility] Comment on above: Order Comment: Name Collection Type:: Suprapubic Collection Performed By: #### L IPID, CMP, PSAS, TSH3, CBC #### [address] Protein,Urine Trace Normal Negative [facility] Comment on above: Order Comment: Name Collection Type:: Suprapubic Collection Performed By: #### L IPID, CMP, PSAS, TSH3, CBC #### [address] RBC,Urine 3-4 Normal 0-4 [facility] Comment on above: Order Comment: Name Collection Type:: Suprapubic Collection Performed By: #### L IPID, CMP, PSAS, TSH3, CBC #### [address] Specificy [place],Urine 1.013 Normal 1.001-1.03 0 [facility] Comment on above: Order Comment: Name Collection Type:: Suprapubic Collection Performed By: #### L IPID, CMP, PSAS, TSH3, CBC #### [address] Urobilinogen,Urine Normal Normal Normal [facility] Comment on above: Order Comment: Name Collection Type:: Suprapubic Collection Performed By: #### L IPID, CMP, PSAS, TSH3, CBC #### [address] WBC CLUMP, Urine Moderate Normal None Seen [facility] Comment on above: Order Comment: Name Collection Type:: Suprapubic Collection Performed By: #### L IPID, CMP, PSAS, TSH3, CBC #### [address] WBC,Urine 50-100 Normal 0-4 [facility] Comment on above: Order Comment: Name Collection Type:: Suprapubic Collection Performed By: #### L IPID, CMP, PSAS, TSH3, CBC #### [address] Glucose Poct Glucometerson 0 07-08-2025 Glucose [Mass/Vol] 118 mg/dL Normal [facility] Comment on above: Result Comment: [place] Glucose Reference Range is dependent on time and content of last meal. Glucose of more than 200 mg/dL in a nonstressed, ambulatory subject supports the diagnosis of Diabetes Mellitus. PERFORMED BY: [place] [address] PATHOLOGIST ASSOCIATE PROFESSOR OF SURGERY JUAN DIEGO CAMACHO M.D. Performed By: #### L IPID, CMP, PSAS, TSH3, CBC #### [address] Commemt1 Glu2: Cleaned Meter Normal [facility] Comment on above: Result Comment: PERF ORMED BY: [place] [address] PATHOLOGIST ASSOCIATE PROFESSOR OF SURGERY JUAN DIEGO CAMACHO M.D. Performed By: #### L IPID, CMP, PSAS, TSH3, CBC #### [address] Glucose [Mass/Vol] 91 mg/dL Normal [facility] Comment on above: Result Comment: [facility] Glucose Reference Range is dependent on time and content of last meal. Glucose of more than 200 mg/dL in a nonstressed, ambulatory subject supports the diagnosis of Diabetes Mellitus. Performed By: #### L IPID, CMP, PSAS, TSH3, CBC #### [address] MISC LABon 07-08-2025 MISC LAB Normal [facility] Comment on above: Order Comment: Reaso n for Exam Hyperlipidemia Reason for Exam: Hyperlipidemia Result Comment: See report. Scanned copy available in EMR. PERFORMED BY: [place] [address] PATHOLOGIST ASSOCIATE PROFESSOR OF SURGERY JUAN DIEGO CAMACHO M.D. Performed By: #### L IPID, CMP, PSAS, TSH3, CBC #### [address] Urine Cultureon 07-08-2025 Bacteria identified Cx Nom (U) ORGANISM: Pseudomonas aeruginosa (O:PSEAER) [place] Count >100,000 Aerobic SABI Charge (NMIC56) SUSCEPTIBILITY [...] RESISTANT TO ALL B-LACTAM DRUGS. PERFORMED BY: [place] [address] PATHOLOGIST ASSOCIATE PROFESSOR OF SURGERY JUAN DIEGO CAMACHO M.D. Normal [facility] Comment on above: Performed By: #### L IPID, CMP, PSAS, TSH3, CBC #### [address] [address] [facility] Vitamin Aon 07-08-2025 Vitamin A 29.8 ug/dL Normal 22.0-69.5 [facility] Comment on above: Order Comment: Fasti ng? (See Test/Proc Notes): Y Result Comment: Refe rence intervals for vitamin A determined from [facility] internal studies. Individuals with vitamin A less than 20 ug/dL are considered vitamin A deficient and those with serum concentrations less than 10 ug/dL are considered severely deficient. This test was developed and its performance characteristics determined by [facility]. It has not been cleared or approved by the Food and Drug Administration. Performed at: [address] [id number] Vehicle Body Maker: Smita Marmolejo MD, Phone: [phone] PERFORMED BY: [address] [id number] PATHOLOGIST ASSOCIATE PROFESSOR OF SURGERY JUAN DIEGO CAMACHO M.D. Performed By: #### L IPID, CMP, PSAS, TSH3, CBC #### [address] [address] [facility] Vitamin B1 (Thiamine) Bloodo n 07-08-2025 Vitamin B1 (Thiamine) Blood 91.4 Normal 66.5-200.0 [facility] Comment on above: Result Comment: This test was developed and its performance characteristics determined by [facility]. It has not been cleared or approved by the Food and Drug Administration. Performed at: [address] [id number] Vehicle Body Maker: Smita Marmolejo MD, Phone: [phone] PERFORMED BY: [place] [address] PATHOLOGIST ASSOCIATE PROFESSOR OF SURGERY JUAN DIEGO CAMACHO M.D. Performed By: #### L IPID, CMP, PSAS, TSH3, CBC #### [address] [address] [facility] Vitamin B2 Levelon Vitamin B2 Level 186 Normal 137-370 [facility] Comment on above: Result Comment: This test was developed and its performance characteristics determined by [facility]. It has not been cleared or approved by the Food and Drug Administration. Reference interval reflects Flavin Adenine Dinucleotide (FAD), that accounts for approximately 90% of the total riboflavin in whole blood. Performed at: [address] [id number] Vehicle Body Maker: Smita Marmolejo MD, Phone: [phone] PERFORMED BY: [place] [address] PATHOLOGIST ASSOCIATE PROFESSOR OF SURGERY JUAN DIEGO CAMACHO M.D. Performed By: #### L IPID, CMP, PSAS, TSH3, CBC #### [place] [id number] [facility] Vitamin B6on 07-08-2025 Vitamin B6 <1.0 Normal 3.4-65.2 [facility] Comment on above: Result Comment: Ve rified by repeat analysis This test was developed and its performance characteristics determined by [facility]. It has not been cleared or approved by the Food and Drug Administration. Deficiency: <3.4 Marginal: 3.4 - 5.1 Adequate: >5.1 Performed at: [address] [id number] Vehicle Body Maker: Smita Marmolejo MD, Phone: [phone] PERFORMED BY: [place] [address] PATHOLOGIST ASSOCIATE PROFESSOR OF SURGERY JUAN DIEGO CAMACHO M.D. Performed By: #### L IPID, CMP, PSAS, TSH3, CBC #### [address] 36on 07-07-2025 [facility], should patient continue wound vac or should they use wet to dry dressing on wound Normal [facility] Comprehensive Metabolic Pane oscar 07-07-2025 Albumin [Mass/Vol] 3.2 g/dL Low 3.5-5.7 [facility] Comment on above: Performed By: #### L IPID, CMP, PSAS, TSH3, CBC #### [address] Albumin/Globulin [Mass ratio] 1.2 {ratio} Normal [facility] Comment on above: Performed By: #### L IPID, CMP, PSAS, TSH3, CBC #### [address] ALP [Catalytic activity/Vol] 112 U/L High 34-104 [facility] Comment on above: Performed By: #### L IPID, CMP, PSAS, TSH3, CBC #### [address] ALT [Catalytic activity/Vol] U/L Low 7-52 [facility] Comment on above: Performed By: #### L IPID, CMP, PSAS, TSH3, CBC #### [address] Anion gap [Moles/Vol] 8.5 mmol/L Normal 6.0-15.0 [facility] Comment on above: Performed By: #### L IPID, CMP, PSAS, TSH3, CBC #### [address] AST [Catalytic activity/Vol] 6 U/L Low 13-39 [facility] Comment on above: Performed By: #### L IPID, CMP, PSAS, TSH3, CBC #### [address] Bilirubin [Mass/Vol] 0.4 mg/dL Normal 0.3-1.0 [facility] Comment on above: Performed By: #### L IPID, CMP, PSAS, TSH3, CBC #### [address] Calcium [Mass/Vol] 8.4 mg/dL Low 8.6-10.3 [facility] Comment on above: Performed By: #### L IPID, CMP, PSAS, TSH3, CBC #### [address] Chloride [Moles/Vol] 107 mmol/L Normal 98-107 [facility] Comment on above: Performed By: #### L IPID, CMP, PSAS, TSH3, CBC #### [address] CO2 [Moles/Vol] 29.1 mmol/L Normal 21.0-31.0 [facility] Comment on above: Performed By: #### L IPID, CMP, PSAS, TSH3, CBC #### [address] Creatinine [Mass/Vol] 0.93 mg/dL Normal 0.70-1.30 [facility] Comment on above: Performed By: #### L IPID, CMP, PSAS, TSH3, CBC #### [place] [address] [place] Creatinine Clr Calc Pharmacy 94.29 Normal [facility] Comment on above: Performed By: #### L IPID, CMP, PSAS, TSH3, CBC #### [place] [address] [place] GFR/1.73 sq M.predicted MDRD (S/P/Bld) [Vol rate/Area] mL/min/{1.73_m2} Normal [facility] Comment on above: Performed By: #### L IPID, CMP, PSAS, TSH3, CBC #### [facility] [address] Globulin (S) [Mass/Vol] 2.6 g/dL Normal [facility] Comment on above: Performed By: #### L IPID, CMP, PSAS, TSH3, CBC #### [facility] [address] Glucose [Mass/Vol] 109 mg/dL High 70-100 [facility] Comment on above: Result Comment: [facility] Glucose Reference Range is dependent on time and content of last meal. Glucose of more than 200 mg/dL in a nonstressed, ambulatory subject supports the diagnosis of Diabetes Mellitus. ADA recommended reference range Performed By: #### L IPID, CMP, PSAS, TSH3, CBC #### [facility] [address] Potassium [Moles/Vol] 3.6 mmol/L Normal 3.5-5.1 [facility] Comment on above: Performed By: #### L IPID, CMP, PSAS, TSH3, CBC #### [facility] [address] Protein [Mass/Vol] 5.8 g/dL Low 6.4-8.9 [facility] Comment on above: Performed By: #### L IPID, CMP, PSAS, TSH3, CBC #### [facility] [address] [place] [address] [place] Sodium [Moles/Vol] 141 mmol/L Normal 136-145 [facility] Comment on above: Performed By: #### L IPID, CMP, PSAS, TSH3, CBC #### [facility] [address] [place] [address] [place] Urea nitrogen [Mass/Vol] 9 mg/dL Normal 7-25 [facility] Comment on above: Performed By: #### L IPID, CMP, PSAS, TSH3, CBC #### [facility] [address] Copperon 07-07-2025 Copper 75 ug/dL Normal 69-132 [facility] Comment on above: Result Comment: This test was developed and its performance characteristics determined by [facility]. It has not been cleared or approved by the Food and Drug Administration. Detection Limit = 5 Performed at: [address] [id number] Vehicle Body Maker: Smita Marmolejo MD, Phone: [phone] PERFORMED BY: [place] [address] PATHOLOGIST ASSOCIATE PROFESSOR OF SURGERY JUAN DIEGO CAMACHO M.D. Performed By: #### L IPID, CMP, PSAS, TSH3, CBC #### [address] Ferritinon 07-07-2025 Ferritin [Mass/Vol] 21.3 ng/mL Low 23.9-336.2 The [facility] Comment on above: Performed By: #### L IPID, CMP, PSAS, TSH3, CBC #### [address] Folate, RBCon 07-07-2025 Folate, Hemolysate 349.0 ng/mL Normal Not Estab. The [facility] Comment on above: Performed By: #### L IPID, CMP, PSAS, TSH3, CBC #### [address] Folate, RBC 954 ng/mL Normal >498 [facility] Comment on above: Result Comment: Perf ormed at: [address] [id number] Vehicle Body Maker: Rodriguez Maloney PhD, Phone: [phone] PERFORMED BY: [place] [address] PATHOLOGIST ASSOCIATE PROFESSOR OF SURGERY JUAN DIEGO CAMACHO M.D. Performed By: #### L IPID, CMP, PSAS, TSH3, CBC #### [address] Hematocrit (Bld) [Volume fraction] 36.6 % Normal 37.5-51.0 [facility] Comment on above: Performed By: #### L IPID, CMP, PSAS, TSH3, CBC #### [address] Glucose Poct Glucometerson 0 07-07-2025 Commemt1 Glu2: Cleaned Meter Normal [facility] Comment on above: Result Comment: PERF ORMED BY: [place] [address] PATHOLOGIST ASSOCIATE PROFESSOR OF SURGERY JUAN DIEGO CAMACHO M.D. Performed By: #### C UU #### [address] Glucose [Mass/Vol] 98 mg/dL Normal [facility] Comment on above: Result Comment: [place] [facility] Glucose Reference Range is dependent on time and content of last meal. Glucose of more than 200 mg/dL in a nonstressed, ambulatory subject supports the diagnosis of Diabetes Mellitus. Performed By: #### C UU #### [address] Glucose [Mass/Vol] 77 mg/dL Normal [facility] Comment on above: Result Comment: [place] [facility] Glucose Reference Range is dependent on time and content of last meal. Glucose of more than 200 mg/dL in a nonstressed, ambulatory subject supports the diagnosis of Diabetes Mellitus. PERFORMED BY: [place] [address] PATHOLOGIST ASSOCIATE PROFESSOR OF SURGERY JUAN DIEGO CAMACHO M.D. Performed By: #### L IPID, CMP, PSAS, TSH3, CBC #### [place] [id number] [facility] Iron and TIBC Profileon 06-19 % Iron Saturation 20.3 % Normal 20-50 [facility] Comment on above: Performed By: #### L IPID, CMP, PSAS, TSH3, CBC #### [place] [id number] [facility] Iron [Mass/Vol] 64 ug/dL Normal 50-212 [facility] Comment on above: Performed By: #### L IPID, CMP, PSAS, TSH3, CBC #### [address] Total Iron Binding Capacity 315 ug/dL Normal 255-450 [facility] Comment on above: Performed By: #### L IPID, CMP, PSAS, TSH3, CBC #### [address] Transferrin [Mass/Vol] 225 mg/dL Normal 203-362 Th [facility] Comment on above: Performed By: #### L IPID, CMP, PSAS, TSH3, CBC #### [address] Scan and CBCon 07-07-2025 Anisocytosis Ql (Bld) Slight Normal [facility] Comment on above: Performed By: #### L IPID, CMP, PSAS, TSH3, CBC #### [address] Basophils (Bld) [#/Vol] 0.0 10*3/uL Normal 0.0-0.2 [facility] Comment on above: Performed By: #### L IPID, CMP, PSAS, TSH3, CBC #### [address] Basophils/100 WBC (Bld) 0.2 % Normal . [facility] Comment on above: Performed By: #### L IPID, CMP, PSAS, TSH3, CBC #### [address] Eosinophils (Bld) [#/Vol] 0.2 10*3/uL Normal 0.0-0.45 [facility] Comment on above: Performed By: #### L IPID, CMP, PSAS, TSH3, CBC #### [address] Eosinophils/100 WBC (Bld) 4.5 % Normal . [facility] Comment on above: Performed By: #### L IPID, CMP, PSAS, TSH3, CBC #### [place] [address] [place] Erythrocyte distribution width (RBC) [Ratio] 16.1 % High 12.0-14.8 [facility] Comment on above: Performed By: #### L IPID, CMP, PSAS, TSH3, CBC #### [address] Hematocrit (Bld) [Volume fraction] 35.9 % Low 38.8-50.0 [facility] Comment on above: Performed By: #### L IPID, CMP, PSAS, TSH3, CBC #### [address] Hemoglobin (Bld) [Mass/Vol] 11.7 g/dL Low 13.0-17.0 [facility] Comment on above: Performed By: #### L IPID, CMP, PSAS, TSH3, CBC #### [address] Hypochromasia Slight Normal The [facility] Comment on above: Performed By: #### L IPID, CMP, PSAS, TSH3, CBC #### [address] Large Platelets Slight Normal [facility] Comment on above: Result Comment: PERF ORMED BY: [place] [address] PATHOLOGIST ASSOCIATE PROFESSOR OF SURGERY JUAN DIEGO CAMACHO M.D. Performed By: #### L IPID, CMP, PSAS, TSH3, CBC #### [address] Lymphocytes (Bld) [#/Vol] 0.9 10*3/uL Low 1.00-4.8 [facility] Comment on above: Performed By: #### L IPID, CMP, PSAS, TSH3, CBC #### [address] Lymphocytes/100 WBC (Bld) 23.4 % Normal . [facility] Comment on above: Performed By: #### L IPID, CMP, PSAS, TSH3, CBC #### [address] MCH (RBC) [Entitic mass] 29.2 pg Normal 27.5-35.2 [facility] Comment on above: Performed By: #### L IPID, CMP, PSAS, TSH3, CBC #### [address] MCV (RBC) [Entitic vol] 90.0 fL Normal 83.5-101 [facility] Comment on above: Performed By: #### L IPID, CMP, PSAS, TSH3, CBC #### [address] Mean Corpuscular HGB Conc 32.4 g/dL Low 32.5-35.6 [facility] Comment on above: Performed By: #### L IPID, CMP, PSAS, TSH3, CBC #### [address] Monocytes (Bld) [#/Vol] 0.4 10*3/uL Normal 0.0-0.8 [facility] Comment on above: Performed By: #### L IPID, CMP, PSAS, TSH3, CBC #### [address] Monocytes/100 WBC (Bld) 9.2 % Normal . [facility] Comment on above: Performed By: #### L IPID, CMP, PSAS, TSH3, CBC #### [address] Neutrophils (Bld) [#/Vol] 2.5 10*3/uL Normal 1.8-7.7 [facility] Comment on above: Performed By: #### L IPID, CMP, PSAS, TSH3, CBC #### [address] Neutrophils/100 WBC (Bld) 62.7 % Normal . [facility] Comment on above: Performed By: #### L IPID, CMP, PSAS, TSH3, CBC #### [address] NRBC% 0.1 /100{WBC} Normal 0-0.5 [facility] Comment on above: Performed By: #### L IPID, CMP, PSAS, TSH3, CBC #### [address] Platelet Estimate Decreased Normal Normal [facility] Comment on above: Performed By: #### L IPID, CMP, PSAS, TSH3, CBC #### [address] Platelet mean volume (Bld) [Entitic vol] 11.2 fL High 6.6-10.1 The [facility] Comment on above: Performed By: #### L IPID, CMP, PSAS, TSH3, CBC #### [address] Platelet Morphology Normal Normal Normal The [facility] Comment on above: Performed By: #### L IPID, CMP, PSAS, TSH3, CBC #### [address] Platelets (Bld) [#/Vol] 87 10*3/uL Low 150-450 [facility] Comment on above: Performed By: #### L IPID, CMP, PSAS, TSH3, CBC #### [address] Polychromasia Slight Normal [facility] Comment on above: Performed By: #### L IPID, CMP, PSAS, TSH3, CBC #### [address] RBC (Bld) [#/Vol] 4.00 10*6/uL Normal 3.90-5.60 [facility] Comment on above: Performed By: #### L IPID, CMP, PSAS, TSH3, CBC #### [address] Stomatocytes Slight Normal The [facility] Comment on above: Performed By: #### L IPID, CMP, PSAS, TSH3, CBC #### [address] WBC (Bld) [#/Vol] 4.0 10*3/uL Low 4.1-10.5 [facility] Comment on above: Performed By: #### L IPID, CMP, PSAS, TSH3, CBC #### [address] White Blood Count 4.0 [CFU]/mL Low 4.1-10.5 [facility] Comment on above: Performed By: #### L IPID, CMP, PSAS, TSH3, CBC #### [address] Thyroid Stimulating Hormoneo n 07-07-2025 TSH Qn 1.21 m[IU]/L Normal 0.45-5.33 [facility] Comment on above: Result Comment: PERF ORMED BY: [place] [address] PATHOLOGIST ASSOCIATE PROFESSOR OF SURGERY JUAND IEGO CAMACHO M.D. Performed By: #### L IPID, CMP, PSAS, TSH3, CBC #### [address] Vitamin B12on 07-07-2025 Cobalamin (Vitamin B12) [Mass/Vol] 465 pg/mL Normal 180-914 [facility] Comment on above: Performed By: #### L IPID, CMP, PSAS, TSH3, CBC #### [address] Vitamin D 25 Hydroxy,Tot+D2+ D3on 07-07-2025 Lab [facility]ilie Vitamin D 25 OH 13 ng/mL Normal . [facility] Comment on above: Result Comment: Refe rence Range: All Ages: Target levels 30 - 100 Performed By: #### L IPID, CMP, PSAS, TSH3, CBC #### [address] Vitamin D-2 <1.0 Normal . [facility] Comment on above: Result Comment: This test was developed and its performance characteristics determined by [facility]. It has not been cleared or approved by the Food and Drug Administration. Performed By: #### L IPID, CMP, PSAS, TSH3, CBC #### [address] Vitamin D-3 13 ng/mL Normal . [facility] Comment on above: Result Comment: This test was developed and its performance characteristics determined by [facility]. It has not been cleared or approved by the Food and Drug Administration. Performed at: [facility] [address] [place] [id number] Vehicle Body Maker: Jonh Ott MD, Phone: [phone] PERFORMED BY: [place] [address] PATHOLOGIST ASSOCIATE PROFESSOR OF SURGERY JUAN DIEGO CAMACHO M.D. Performed By: #### L IPID, CMP, PSAS, TSH3, CBC #### [address] Zinc, Whole Bloodon 07-07-20 25 Zinc, Whole Blood 616 ug/dL Normal 459-781 [facility] Comment on above: Result Comment: This test was developed and its performance characteristics determined by [facility]. It has not been cleared or approved by the Food and Drug Administration. Please note reference interval change Performed at: [facility] [id number] Vehicle Body Maker: Smita Marmolejo MD, Phone: [phone] PERFORMED BY: [place] [address] PATHOLOGIST ASSOCIATE PROFESSOR OF SURGERY JUAN DIEGO CAMACHO M.D. Performed By: #### L IPID, CMP, PSAS, TSH3, CBC #### [address] CBC WITH AUTO DIFFERENTIALon 07-06-2025 Basophils (Bld) [#/Vol] 0.00 10*3/uL Normal 0.00-0.20 [facility] Comment on above: Performed By: #### L [id number] ####[facility] (BEAKER)[address] [place] [address] Basophils/100 WBC (Bld) 0.0 % Normal 0.0-1.0 [facility] Comment on above: Performed By: #### L [id number] ####[facility] (BEAKER)[address] [place] [address] Eosinophils (Bld) [#/Vol] 0.18 10*3/uL Normal 0.00-0.50 [facility] Comment on above: Performed By: #### L [id number] ####[facility] (BEAKER)[address] [place] [address] Eosinophils/100 WBC (Bld) 3.2 % Normal 0.0-6.0 [facility] Comment on above: Performed By: #### L [id number] ####[facility] (BEAKER)[address] [place] [address] Erythrocyte distribution width (RBC) [Ratio] 16.1 % High 11.5-15.0 [facility] Comment on above: Performed By: #### L [id number] ####[facility] (BEAKER)[address] [place] [address] ERYTHROCYTE MEAN CORPUSCULAR HEMOGLOBIN CONCENTRATION (G/DL) BY AUTOMATED 31.0 g/dL Low 32.0-35.0 [facility] Comment on above: Performed By: #### L [id number] ####[facility] (BEAKER)[address] [place] [address] Hematocrit (Bld) [Volume fraction] 38.4 % Normal [facility] Comment on above: Performed By: #### L [id number] ####[facility] (BEAKER)[address] [place] [address] Performed By: #### L [id number] ####[facility] (BEAKER)[address] [place] [address] Hemoglobin (Bld) [Mass/Vol] 11.9 g/dL Low 12.0-17.0 [facility] Comment on above: Performed By: #### L [id number] ####[facility] (BEAKER)[address] [place] [address] Immature granulocytes (Bld) [#/Vol] 0.02 10*3/uL Normal 0.00-0.20 [facility] Comment on above: Performed By: #### L [id number] ####[facility] (BEAKER)[address] [place] [address] Immature granulocytes/100 WBC (Bld) 0.4 % Normal 0.0-1.0 [facility] Comment on above: Performed By: #### L [id number] ####[facility] (BEAKER)[address] [place] [address] IMMATURE PLATELET FRACTION % 13.2 % High 0.8-6.3 [facility] Comment on above: Performed By: #### L [id number] ####[facility] (BEAKER)[address] [place] [address] Lymphocytes (Bld) [#/Vol] 1.23 10*3/uL Normal 1.20-4.00 [facility] Comment on above: Performed By: #### L [id number] ####[facility] (BEAKER)[address] [place] [address] Lymphocytes/100 WBC (Bld) 22.0 % Normal 20.0-45.0 [facility] Comment on above: Performed By: #### L [id number] ####[facility] (BEAKER)[address] [place] [address] MCH (RBC) [Entitic mass] 29.2 pg Normal 27.0-33.0 [facility] Comment on above: Performed By: #### L [id number] ####[facility] (BEAKER)[address] [place] [address] MCV (RBC) [Entitic vol] 94.1 fL Normal 82.0-98.0 [facility] Comment on above: Performed By: #### L [id number] ####[facility] (BEAKER)[address] [place] [address] Monocytes (Bld) [#/Vol] 0.52 10*3/uL Normal 0.10-1.00 [facility] Comment on above: Performed By: #### L [id number] ####[facility] (BEAKER)[address] [place] [address] Monocytes/100 WBC (Bld) 9.3 % Normal 5.0-12.0 [facility] Comment on above: Performed By: #### L [id number] ####[facility] (BEAKER)[address] [place] [address] Neutrophils (Bld) [#/Vol] 3.64 10*3/uL Normal 1.60-7.60 [facility] Comment on above: Performed By: #### L [id number] ####[facility] (BEAKER)[address] [place] [address] Neutrophils/100 WBC (Bld) 65.1 % Normal 40.0-72.0 [facility] Comment on above: Performed By: #### L [id number] ####[facility] (BEAKER)[address] [place] [address] NRBC (PER 100 WBCS) BY AUTOMATED COUNT 0.0 % Normal 0 [facility] Comment on above: Performed By: #### L [id number] ####[facility] (BEAKER)[address] [place] [address] PLATELETS (10*3/UL) IN BLOOD AUTOMATED COUNT 136 10*3/uL Low 150-400 [facility] Comment on above: Performed By: #### L [id number] ####[facility] (BEAKER)[address] [place] [address] RBC (Bld) [#/Vol] 4.08 10*6/uL Normal 3.80-5.70 [facility] Comment on above: Performed By: #### L [id number] ####[facility] (BEAKER)[address] [place] [address] WBC (Bld) [#/Vol] 5.59 10*3/uL Normal 4.00-10.60 [facility] Comment on above: Performed By: #### L [id number] ####[facility] (BESAVANNAH)[address] [place] [address] COMPREHENSIVE METABOLIC PANE Oscar 07-06-2025 ALANINE AMINOTRANSFERASE (SGPT) (U/L) IN SER/PLAS <3 Low 7-52 [facility] Comment on above: Performed By: #### L [id number] ####[facility] (SAVANNAH)[address] [place] [address] Albumin [Mass/Vol] 3.4 g/dL Low 3.5-5.7 [facility] Comment on above: Performed By: #### L [id number] ####[facility] (SAVANNAH)[address] [place] [address] ALP [Catalytic activity/Vol] 114 U/L High 34-104 [facility] Comment on above: Performed By: #### L [id number] ####[facility] (SAVANNAH)[address] [place] [address] Anion gap [Moles/Vol] 9 mmol/L Normal 7-20 [facility] Comment on above: Performed By: #### L [id number] ####[facility] (BESAVANNAH)[address] [place] [address] AST [Catalytic activity/Vol] 6 U/L Low 13-39 [facility] Comment on above: Performed By: #### L [id number] ####[facility] (BESAV[place]NAH)[address] [place] [address] Bilirubin [Mass/Vol] 0.5 mg/dL Normal 0.3-1.0 [facility] Comment on above: Performed By: #### L [id number] ####[facility] (BESAVANNAH)[address] [place] [address] Calcium [Mass/Vol] 8.9 mg/dL Normal 8.6-10.3 [facility] Comment on above: Performed By: #### L [id number] ####[facility] [place] [address] Chloride [Moles/Vol] 105 mmol/L Normal 98-107 [facility] Comment on above: Performed By: #### L [id number] ####[facility] ([facility])[address] [place] [address] CO2 [Moles/Vol] 30 mmol/L Normal 21-31 [facility] Comment on above: Performed By: #### L [id number] ####[facility] ([facility])[address] [place] [address] Creatinine [Mass/Vol] 0.92 mg/dL Normal 0.60-1.30 [facility] Comment on above: Performed By: #### L [id number] ####[facility] ([facility])[address] [place] [address] GLOMERULAR FILTRATION RATE ML/MIN/1.73 SQ M.PREDICTED 68.7 mL/min/1.73m*2 Normal >60.0 [facility] Comment on above: Result Comment: The [facility]???s estimated glomerular filtration rate (eGFR) will no [...] of individuals. Performed By: #### L [id number] ####[facility] ([facility] [place] [address] Glucose [Mass/Vol] 83 mg/dL Normal 70-100 [facility] Comment on above: Performed By: #### L [id number] ####[facility] [facility] ([facility] [place] [address] Potassium [Moles/Vol] 3.6 mmol/L Normal 3.5-5.1 [facility] Comment on above: Performed By: #### L [id number] ####[facility] ([facility])[address] [place] [address] Protein [Mass/Vol] 6.4 g/dL Normal 6.0-8.3 [facility] Comment on above: Performed By: #### L [id number] ####[facility] ([facility] [place] [address] Sodium [Moles/Vol] 140 mmol/L Normal 136-145 [facility] Comment on above: Performed By: #### L [id number] ####[facility] ([facility] [place] [address] Urea nitrogen [Mass/Vol] 8 mg/dL Normal 7-25 [facility] Comment on above: Performed By: #### L [id number] ####[facility] ([facility])[address] [place] [address] UREA NITROGEN/CREATININE (MASS RATIO) IN SER/PLAS 8.7 Normal [facility] Comment on above: Performed By: #### L [id number] ####[facility] ([facility] [place] [address] COPPER, SERUMon 07-06-2025 COPPER 85.5 ug/dL Normal 70.0-140.0 [facility] Comment on above: Result Comment: INTE RPRETIVE [...] was developed and its performance characteristicsdetermined by [facility]. It has not been cleared orapproved by the [place] Food and Drug Administration. This test wasperformed in a CLIA certified laboratory and is intended forclinical purposes.Performed By: [facility] [place], [place] [address]Beyhikipgo Director: Calin Cui MD, PhDCLIA Number: [id number] Performed By: #### L [id number] ####[facility] ([facility])[address] [place] [address] FERRITINon 07-06-2025 FERRITIN (NG/ML) IN SER/PLAS 25.0 ng/mL Normal 11.0-336.0 [facility] Comment on above: Performed By: #### L [id number] ####[facility] ([facility])[address] [place] [address] FOLATE RBCon 07-06-2025 RBC FOLATE 812 ng/mL Normal >=366 [facility] Comment on above: Result Comment: Perf ormed By: [facility] [place], [place] [address]Afevmeorsl Director: Calin Cui MD, PhDCLIA Number: [id number] Performed By: #### L [id number] ####[facility] ([facility])[address] [place] [address] Glucose Poct Glucometerson 0 07-06-2025 Glucose [Mass/Vol] 109 mg/dL Normal [facility] Comment on above: Result Comment: [facility] Glucose Reference Range is dependent on time and content of last meal. Glucose of more than 200 mg/dL in a nonstressed, ambulatory subject supports the diagnosis of Diabetes Mellitus. PERFORMED BY: [place] [address] PATHOLOGIST ASSOCIATE PROFESSOR OF SURGERY JUAN DIEGO CAMACHO M.D. Performed By: #### C UU #### [address] Glucose [Mass/Vol] 90 mg/dL Normal [facility] Comment on above: Result Comment: [facility] Glucose Reference Range is dependent on time and content of last meal. Glucose of more than 200 mg/dL in a nonstressed, ambulatory subject supports the diagnosis of Diabetes Mellitus. PERFORMED BY: [address] [place] [address] PATHOLOGIST ASSOCIATE PROFESSOR OF SURGERY JUAN DIEGO CAMACHO M.D. Performed By: #### C UU #### [facility] [address] IRON AND TIBCon 07-06-2025 IRON (UG/DL) IN SER/PLAS 81 ug/dL Normal 50-212 [facility] Comment on above: Performed By: #### L [id number] ####[facility] ([facility] [place] [address] IRON BINDING CAPACITY (UG/DL) IN SER/PLAS 307 ug/dL Normal 250-450 [facility] Comment on above: Performed By: #### L [id number] ####[facility] ([facility])[address] [place] [address] IRON BINDING CAPACITY.UNSATURATED (UG/DL) IN SER/PLAS 226.0 ug/dL Normal 155.0-355. 0 [facility] Comment on above: Performed By: #### L [id number] ####[facility] ([facility])[address] [place] [address] IRON SATURATION (%) IN SER/PLAS 26 % Normal 20-50 [facility] Comment on above: Performed By: #### L [id number] ####[facility] ([facility] [place] [address] Labon 07-06-2025 Lab Normal [facility] MAGNESIUMon 07-06-2025 Magnesium [Mass/Vol] 2.1 mg/dL Normal 1.9-2.7 [facility] Comment on above: Performed By: #### L [id number] ####[facility] ([facility] [place] [address] NIACIN (VITAMIN B3)on 2024 NICOTINAMIDE 25 ng/mL Normal [facility] Comment on above: Result Comment: Seru [...] use of this test for basal Vitamin L4thpbtfcvadvfe. The supplied reference comment does notreflect normal, endogenous Vitamin B3 concentrations.Analysis by [employer] Liquid Chromatography/Tandem Mass Spectrometry (LC-MS/MS) Performed By: #### L [id number] ####[address] [address] NICOTINIC ACID None Det Normal [facility] Comment on above: Result Comment: Seru m or PlasmaReporting Limit: 10 ng/mLSynonym(s): Niacor(R); Niaspan(R); Slo-Niacin(R);Vitamin B7Zwkllnnla acid occurs naturally in plants and animalsand is also added to many foods as a vitaminsupplement. Due to the large variability in themetabolism of nicotinic acid, the dosing preparationused (immediate-release vs. extended-release), and themg doses used, the serum concentrations may range fromless than 10 ng/mL to about [address] ng/mL.After oral administration of an immediate-releasetablet, peak [...] 10 min. for 20 doses (over 3 hours):[address] ng/mLThis test should be considered as a therapeutic drugmonitoring/toxicological test associated with niacin(Vitamin B3) supplementation. Care should be taken inthe use of this test for basal Vitamin O9szahfpvrgrkut. The supplied reference comment does notreflect normal, endogenous Vitamin B3 concentrations.Analysis by High Performance Liquid Chromatography/Tandem Mass Spectrometry (LC-MS/MS) Performed By: #### L [id number] ####[facility] ([address] [address] NICOTINURIC ACID None Det Normal [facility] Comment on above: Result Comment: Seru [...] use of this test for basal Vitamin A2cslxpopayetay. The supplied reference comment does notreflect normal, endogenous Vitamin B3 concentrations.Analysis by High Performance Liquid Chromatography/Tandem Mass Spectrometry (LC-MS/MS)This test was developed and its performancecharacteristics determined by [facility]. It has notbeen cleared or approved by the US Food and DrugAdministration.Digital data review may have taken place remotely byqualified [facility] staff utilizing a secure VPN connectionfor some or all of the reported results. This is inaccordance with and follows CLIA regulations.Testing performed at [facility] [place] [id number] Poon, PhD, F-AB, [facility], LaboratoryDirectorCLIA [id number] Performed By: #### L [id number] ####[facility] ([facility])[address] [place] [address] PHOSPHORUSon 07-06-2025 Magnesium [Mass/Vol] 1.8 mg/dL Low 2.5-5.0 [facility] Comment on above: Performed By: #### L [id number] ####[facility] ([facility]ER)[address] [place] [address] TSHon 07-06-2025 THYROTROPIN (MIU/L) IN SER/PLAS BY DETECTION LIMIT <= 0.05 MIU/L 1.59 mIU/L Normal 0.34-5.60 [facility] Comment on above: Performed By: #### L [id number] ####[facility] ([facility])[address] [place] [address] VITAMIN Aon 07-06-2025 VITAMIN A (RETINOL) 0.46 mg/L Normal 0.30-1.20 [facility] Comment on above: Performed By: #### L [id number] ####[facility] ([facility])[address] [place] [address] VITAMIN A (RETINYL PALMITATE) <0.02 Normal 0.00-0.10 [facility] Comment on above: Performed By: #### L [id number] ####[facility] ([facility])[address] [place] [address] VITAMIN A, SER/TYSHAWN - INTERPRETATION Normal Normal [facility] Comment on above: Result Comment: This test was developed and its performance characteristicsdetermined by [facility]. It has not been cleared orapproved by the [place] Food and Drug Administration. This test wasperformed in a CLIA certified laboratory and is intended forclinical purposes.Performed By: [facility] [place] [id number] Director: Calin Cui MD, PhDCLIA Number: [id number] Performed By: #### L [id number] ####[facility] ([facility])[address] [place] [address] VITAMIN B1on 07-06-2025 VITAMIN B1, PLASMA 5 nmol/L Normal 4-15 [facility] Comment on above: Result Comment: INTE RPRETIVE DATA: Vitamin B1, PlasmaThiamine (vitamin B1) is reported. However, thiamine diphosphate(TDP), the biologically active form of thiamine, is not found inmeasurable concentrations in plasma, and is best determined inwhole blood specimens. Plasma thiamine concentration reflectsrecent intake rather than body stores.This test was developed and its performance characteristicsdetermined by [facility]. It has not been cleared orapproved by the [place] Food and Drug Administration. This test wasperformed in a CLIA certified laboratory and is intended forclinical purposes.Performed By: [facility] [place] [id number] Director: Calin Cui MD, PhDCLIA Number: [id number] Performed By: #### L AB125 ####[facility] ([facility])[address] [place] [address] VITAMIN B12on 07-06-2025 Cobalamin (Vitamin B12) [Mass/Vol] 487 pg/mL Normal 180-914 [facility] Comment on above: Result Comment: REFE RENCE RANGES:180-914 pg/mL Sdgven831-634 pg/mL Indeterminate<145 pg/mL Deficient Performed By: #### L [id number] ####[facility] ([facility]ER)[address] [place] [address] VITAMIN B2on 07-06-2025 VITAMIN B2 12 nmol/L Normal 5-50 [facility] Comment on above: Result Comment: INTE RPRETIVE INFORMATION: Vitamin B2, PlasmaThis test was developed and its performance characteristicsdetermined by [facility]. It has not been cleared orapproved by the US Food and Drug Administration. This test wasperformed in a CLIA certified laboratory and is intended forclinical purposes.Performed By: [facility] [place] [id number] Director: Calin Cui MD, PhDCLIA Number: [id number] Performed By: #### L [id number] ####[facility] ([facility])[address] [place] [address] VITAMIN B6on 07-06-2025 VITAMIN B6 <5.0 Low 20.0-125.0 [facility] Comment on above: Result Comment: INTE RPRETIVE INFORMATION: Vitamin B6 (Pyridoxal 5-Phosphate)Pyridoxal 5'-phosphate measured in a specimen collected followingan 8-hour or overnight fast accurately indicates vitamin Z2gbjeebwmtsj status. Non-fasting specimen concentration reflectsrecent vitamin intake.This test was developed and its performance characteristicsdetermined by [facility]. It has not been cleared orapproved by the [place] Food and Drug Administration. This test wasperformed in a CLIA certified laboratory and is intended forclinical purposes.Performed By: [facility] [place], [place] [address]Uwhiwbqcoz Director: Calin Cui MD, PhDCLIA Number: [id number] Performed By: #### L [id number] ####[facility] ([facility])[address] [place] [address] VITAMIN D 25 HYDROXYon 07-06 CALCIDIOL (25 [place] VITAMIN D3) (NG/ML) IN SER/PLAS 12.8 ng/mL Low 30.0-80.0 [facility] Comment on above: Result Comment: >80. 0 Toxicity possible Performed By: #### L [id number] ####[facility] ([facility])[address] [place] [address] ZINCon 07-06-2025 ZINC 63.9 ug/dL Normal 60.0-120.0 [facility] Comment on above: Result Comment: INTE RPRETIVE [...] was developed and its performance characteristicsdetermined by [facility]. It has not been cleared orapproved by the US Food and Drug Administration. This test wasperformed in a CLIA certified laboratory and is intended forclinical purposes.Performed By: [facility] [place], [place] [address]Amafrwwnay Director: Calin Cui MD, PhDCLIA Number: [id number] Performed By: #### L [id number] ####[facility] ([facility])[address] [place] [address] Glucose Poct Glucometerson 0 07-05-2025 Glucose [Mass/Vol] 109 mg/dL Normal [facility] Comment on above: Result Comment: [place] Glucose Reference Range is dependent on time and content of last meal. Glucose of more than 200 mg/dL in a nonstressed, ambulatory subject supports the diagnosis of Diabetes Mellitus. PERFORMED BY: [facility] [address] [place] [address] PATHOLOGIST ASSOCIATE PROFESSOR OF SURGERY JUAN DIEGO CAMACHO M.D. Performed By: #### C UU #### [place] [id number] [facility] Glucose [Mass/Vol] 103 mg/dL Normal [facility] Comment on above: Result Comment: [place] om Glucose Reference Range is dependent on time and content of last meal. Glucose of more than 200 mg/dL in a nonstressed, ambulatory subject supports the diagnosis of Diabetes Mellitus. PERFORMED BY: [place] [address] PATHOLOGIST ASSOCIATE PROFESSOR OF SURGERY JUAN DIEGO CAMACHO M.D. Performed By: #### L IPID, CMP, PSAS, TSH3, CBC #### [place] [id number] [facility] Glucose Poct Glucometerson 0 07-04-2025 Glucose [Mass/Vol] 103 mg/dL Normal [facility] Comment on above: Result Comment: [place] om Glucose Reference Range is dependent on time and content of last meal. Glucose of more than 200 mg/dL in a nonstressed, ambulatory subject supports the diagnosis of Diabetes Mellitus. PERFORMED BY: [place] [address] PATHOLOGIST ASSOCIATE PROFESSOR OF SURGERY JUAN DIEGO CAMACHO M.D. Performed By: #### L IPID, CMP, PSAS, TSH3, CBC #### [place] [id number] [facility] Glucose [Mass/Vol] 88 mg/dL Normal [facility] Comment on above: Result Comment: [place] om Glucose Reference Range is dependent on time and content of last meal. Glucose of more than 200 mg/dL in a nonstressed, ambulatory subject supports the diagnosis of Diabetes Mellitus. PERFORMED BY: [place] [address] PATHOLOGIST ASSOCIATE PROFESSOR OF SURGERY JUAN DIEGO CAMACHO M.D. Performed By: #### C UU #### [place] [id number] [facility] Basic Metabolic Panelon 09-1 Anion gap [Moles/Vol] 8.9 mmol/L Normal 6.0-15.0 [facility] Comment on above: Performed By: #### C UU #### [address] Calcium [Mass/Vol] 8.7 mg/dL Normal 8.6-10.3 [facility] Comment on above: Performed By: #### C UU #### [address] Chloride [Moles/Vol] 107 mmol/L Normal 98-107 [facility] Comment on above: Performed By: #### C UU #### [address] CO2 [Moles/Vol] 28.9 mmol/L Normal 21.0-31.0 [facility] Comment on above: Performed By: #### C UU #### [address] Creatinine [Mass/Vol] 0.83 mg/dL Normal 0.70-1.30 [facility] Comment on above: Performed By: #### C UU #### [place] [address] [place] Creatinine Clr Calc Pharmacy 105.65 Normal [facility] Comment on above: Result Comment: PERF ORMED BY: [place] [address] PATHOLOGIST ASSOCIATE PROFESSOR OF SURGERY JUAN DIEGO CAMACHO M.D. Performed By: #### C UU #### [place] [address] [place] GFR/1.73 sq M.predicted MDRD (S/P/Bld) [Vol rate/Area] mL/min/{1.73_m2} Normal [facility] Comment on above: Performed By: #### C UU #### [address] Glucose [Mass/Vol] 82 mg/dL Normal 70-100 [facility] Comment on above: Result Comment: [place] Glucose Reference Range is dependent on time and content of last meal. Glucose of more than 200 mg/dL in a nonstressed, ambulatory subject supports the diagnosis of Diabetes Mellitus. ADA recommended reference range Performed By: #### C UU #### [address] Potassium [Moles/Vol] 3.8 mmol/L Normal 3.5-5.1 [facility] Comment on above: Result Comment: Hemo lysis is present at a level that could interfere with the result. Contact lab if redraw is required Performed By: #### C UU #### [address] Sodium [Moles/Vol] 141 mmol/L Normal 136-145 [facility] Comment on above: Performed By: #### C UU #### [address] Urea nitrogen [Mass/Vol] 7 mg/dL Normal 7-25 [facility] Comment on above: Performed By: #### C UU #### [address] Complete Blood Count Auto Di ffon 07-03-2025 Basophils (Bld) [#/Vol] 0.0 10*3/uL Normal 0.0-0.2 [facility] Comment on above: Result Comment: PERF ORMED BY: [place] [address] PATHOLOGIST ASSOCIATE PROFESSOR OF SURGERY JUAN DIEGO CAMACHO M.D. Performed By: #### C UU #### [place] [address] [place] Basophils/100 WBC (Bld) 0.5 % Normal . [facility] Comment on above: Performed By: #### C UU #### [place] [address] [place] Eosinophils (Bld) [#/Vol] 0.1 10*3/uL Normal 0.0-0.45 [facility] Comment on above: Performed By: #### C UU #### [place] [address] [place] Eosinophils/100 WBC (Bld) 4.0 % Normal . [facility] Comment on above: Performed By: #### C UU #### [address] Erythrocyte distribution width (RBC) [Ratio] 16.4 % High 12.0-14.8 [facility] Comment on above: Performed By: #### C UU #### [address] Hematocrit (Bld) [Volume fraction] 32.9 % Low 38.8-50.0 [facility] Comment on above: Performed By: #### C UU #### [address] Hemoglobin (Bld) [Mass/Vol] 10.8 g/dL Low 13.0-17.0 [facility] Comment on above: Performed By: #### C UU #### [address] Lymphocytes (Bld) [#/Vol] 1.0 10*3/uL Normal 1.00-4.8 [facility] Comment on above: Performed By: #### C UU #### [place] [address] [place] Lymphocytes/100 WBC (Bld) 29.9 % Normal . [facility] Comment on above: Performed By: #### C UU #### [address] MCH (RBC) [Entitic mass] 29.2 pg Normal 27.5-35.2 [facility] Comment on above: Performed By: #### C UU #### [address] MCV (RBC) [Entitic vol] 89.0 fL Normal 83.5-101 [facility] Comment on above: Performed By: #### C UU #### [address] Mean Corpuscular HGB Conc 32.8 g/dL Normal 32.5-35.6 [facility] Comment on above: Performed By: #### C UU #### [place] [address] [place] Monocytes (Bld) [#/Vol] 0.5 10*3/uL Normal 0.0-0.8 [facility] Comment on above: Performed By: #### C UU #### [place] [address] [place] Monocytes/100 WBC (Bld) 14.4 % Normal . [facility] Comment on above: Performed By: #### C UU #### [place] [address] [place] Neutrophils (Bld) [#/Vol] 1.7 10*3/uL Low 1.8-7.7 [facility] Comment on above: Performed By: #### C UU #### [address] Neutrophils/100 WBC (Bld) 51.2 % Normal . [facility] Comment on above: Performed By: #### C UU #### [address] NRBC% 0.1 /100{WBC} Normal 0-0.5 [facility] Comment on above: Performed By: #### C UU #### [address] Platelet mean volume (Bld) [Entitic vol] 10.8 fL High 6.6-10.1 [facility] Comment on above: Performed By: #### C UU #### [place] [address] [place] Platelets (Bld) [#/Vol] 129 10*3/uL Low 150-450 [facility] Comment on above: Performed By: #### C UU #### [place] [address] [place] RBC (Bld) [#/Vol] 3.69 10*6/uL Low 3.90-5.60 [facility] Comment on above: Performed By: #### C UU #### [address] [place] [address] [place] WBC (Bld) [#/Vol] 3.4 10*3/uL Low 4.1-10.5 [facility] Comment on above: Performed By: #### C UU #### [address] White Blood Count 3.4 [CFU]/mL Low 4.1-10.5 [facility] Comment on above: Performed By: #### C UU #### [address] Glucose Poct Glucometerson 0 07-03-2025 Glucose [Mass/Vol] 103 mg/dL Normal [facility] Comment on above: Result Comment: [place] Glucose Reference Range is dependent on time and content of last meal. Glucose of more than 200 mg/dL in a nonstressed, ambulatory subject supports the diagnosis of Diabetes Mellitus. PERFORMED BY: [place] [address] PATHOLOGIST ASSOCIATE PROFESSOR OF SURGERY JUAN DIEGO CAMACHO M.D. Performed By: #### C UU #### [address] Glucose [Mass/Vol] 90 mg/dL Normal [facility] Comment on above: Result Comment: [place] Glucose Reference Range is dependent on time and content of last meal. Glucose of more than 200 mg/dL in a nonstressed, ambulatory subject supports the diagnosis of Diabetes Mellitus. PERFORMED BY: [place] [address] PATHOLOGIST ASSOCIATE PROFESSOR OF SURGERY JUAN DIEGO CAMACHO M.D. Performed By: #### C UU #### [address] Glucose [Mass/Vol] 91 mg/dL Normal [facility] Comment on above: Result Comment: [place] Glucose Reference Range is dependent on time and content of last meal. Glucose of more than 200 mg/dL in a nonstressed, ambulatory subject supports the diagnosis of Diabetes Mellitus. PERFORMED BY: [place] [address] PATHOLOGIST ASSOCIATE PROFESSOR OF SURGERY UJAN DIEGO CAMACHO M.D. Performed By: #### C UU #### [address] Glucose Poct Glucometerson 0 07-02-2025 Glucose [Mass/Vol] 106 mg/dL Normal [facility] Comment on above: Result Comment: [place] om Glucose Reference Range is dependent on time and content of last meal. Glucose of more than 200 mg/dL in a nonstressed, ambulatory subject supports the diagnosis of Diabetes Mellitus. PERFORMED BY: [place] [address] PATHOLOGIST ASSOCIATE PROFESSOR OF SURGERY JUAN DIEGO CAMACHO M.D. Performed By: #### L IPID, CMP, PSAS, TSH3, CBC #### [address] Glucose [Mass/Vol] 99 mg/dL Normal [facility] Comment on above: Result Comment: [place] om Glucose Reference Range is dependent on time and content of last meal. Glucose of more than 200 mg/dL in a nonstressed, ambulatory subject supports the diagnosis of Diabetes Mellitus. PERFORMED BY: [place] [address] PATHOLOGIST ASSOCIATE PROFESSOR OF SURGERY JUAN DIEGO CAMACHO M.D. Performed By: #### L IPID, CMP, PSAS, TSH3, CBC #### [address] Glucose [Mass/Vol] 113 mg/dL Normal [facility] Comment on above: Result Comment: [place] om Glucose Reference Range is dependent on time and content of last meal. Glucose of more than 200 mg/dL in a nonstressed, ambulatory subject supports the diagnosis of Diabetes Mellitus. PERFORMED BY: [place] [address] PATHOLOGIST ASSOCIATE PROFESSOR OF SURGERY JUAN DIEGO CAMACHO M.D. Performed By: #### L IPID, CMP, PSAS, TSH3, CBC #### [address] Commemt1 Glu2: Cleaned Meter Normal [facility] Comment on above: Result Comment: PERF ORMED BY: [place] [address] PATHOLOGIST ASSOCIATE PROFESSOR OF SURGERY JUAN DIEGO CAMACHO M.D. Performed By: #### C UU #### [address] Glucose [Mass/Vol] 92 mg/dL Normal [facility] Comment on above: Result Comment: [place] om Glucose Reference Range is dependent on time and content of last meal. Glucose of more than 200 mg/dL in a nonstressed, ambulatory subject supports the diagnosis of Diabetes Mellitus. Performed By: #### C UU #### [address] Glucose Poct Glucometerson 0 07-01-2025 Glucose [Mass/Vol] 133 mg/dL Normal [facility] Comment on above: Result Comment: [place] Glucose Reference Range is dependent on time and content of last meal. Glucose of more than 200 mg/dL in a nonstressed, ambulatory subject supports the diagnosis of Diabetes Mellitus. PERFORMED BY: [place] [address] PATHOLOGIST ASSOCIATE PROFESSOR OF SURGERY JUAN DIEGO CAMACHO M.D. Performed By: #### L IPID, CMP, PSAS, TSH3, CBC #### [address] [address] [facility] Commemt1 Glu2: Cleaned Meter Normal [facility] Comment on above: Result Comment: PERF ORMED BY: [place] [address] PATHOLOGIST ASSOCIATE PROFESSOR OF SURGERY JUAN DIEGO CAMACHO M.D. Performed By: #### L IPID, CMP, PSAS, TSH3, CBC #### [place] [id number] [place] Glucose [Mass/Vol] 94 mg/dL Normal [facility] Comment on above: Result Comment: [place] Glucose Reference Range is dependent on time and content of last meal. Glucose of more than 200 mg/dL in a nonstressed, ambulatory subject supports the diagnosis of Diabetes Mellitus. Performed By: #### L IPID, CMP, PSAS, TSH3, CBC #### [place] [address] [place] Commemt1 Glu2: Cleaned Meter Normal [facility] Comment on above: Result Comment: PERF ORMED BY: [place] [address] PATHOLOGIST ASSOCIATE PROFESSOR OF SURGERY JUAN DIEGO CAMACHO M.D. Performed By: #### C UU #### [place] [address] [place] Glucose [Mass/Vol] 97 mg/dL Normal [facility] Comment on above: Result Comment: [place] Glucose Reference Range is dependent on time and content of last meal. Glucose of more than 200 mg/dL in a nonstressed, ambulatory subject supports the diagnosis of Diabetes Mellitus. Performed By: #### C UU #### [place] [address] [place] Commemt1 Glu2: Cleaned Meter Normal [facility] Comment on above: Result Comment: PERF ORMED BY: [place] [address] PATHOLOGIST ASSOCIATE PROFESSOR OF SURGERY JUAN DIEGO CAMACHO M.D. Performed By: #### C UU #### [place] [address] [place] Glucose [Mass/Vol] 90 mg/dL Normal [facility] Comment on above: Result Comment: [place] Glucose Reference Range is dependent on time and content of last meal. Glucose of more than 200 mg/dL in a nonstressed, ambulatory subject supports the diagnosis of Diabetes Mellitus. Performed By: #### C UU #### [place] [address] [place] Glucose [Mass/Vol] 76 mg/dL Normal [facility] Comment on above: Result Comment: [place] Glucose Reference Range is dependent on time and content of last meal. Glucose of more than 200 mg/dL in a nonstressed, ambulatory subject supports the diagnosis of Diabetes Mellitus. PERFORMED BY: [place] [id number] PATHOLOGIST ASSOCIATE PROFESSOR OF SURGERY JUAN DIEGO CAMACHO M.D. Performed By: #### L IPID, CMP, PSAS, TSH3, CBC #### [place] [id number] [facility] Glucose Poct Glucometerson 0 06-30-2025 Commemt1 Glu2: Cleaned Meter Normal [facility] Comment on above: Result Comment: PERF ORMED BY: [place] [id number] PATHOLOGIST ASSOCIATE PROFESSOR OF SURGERY JUAN DIEGO CAMACHO M.D. Performed By: #### L IPID, CMP, PSAS, TSH3, CBC #### [place] [id number] [facility] Glucose [Mass/Vol] 136 mg/dL Normal [facility] Comment on above: Result Comment: [place] om Glucose Reference Range is dependent on time and content of last meal. Glucose of more than 200 mg/dL in a nonstressed, ambulatory subject supports the diagnosis of Diabetes Mellitus. Performed By: #### L IPID, CMP, PSAS, TSH3, CBC #### [place] [id number] [place] Glucose [Mass/Vol] 100 mg/dL Normal [facility] Comment on above: Result Comment: [place] Glucose Reference Range is dependent on time and content of last meal. Glucose of more than 200 mg/dL in a nonstressed, ambulatory subject supports the diagnosis of Diabetes Mellitus. PERFORMED BY: [place] [id number] PATHOLOGIST ASSOCIATE PROFESSOR OF SURGERY JUAN DIEGO CAMACHO M.D. Performed By: #### L IPID, CMP, PSAS, TSH3, CBC #### [address] [address] [facility] Commemt1 Glu2: Cleaned Meter Normal [facility] Comment on above: Result Comment: PERF ORMED BY: [address] [address] PATHOLOGIST ASSOCIATE PROFESSOR OF SURGERY JUAN DIEGO CAMACHO M.D. Performed By: #### L IPID, CMP, PSAS, TSH3, CBC #### [address] Glucose [Mass/Vol] 100 mg/dL Normal [facility] Comment on above: Result Comment: [place] om Glucose Reference Range is dependent on time and content of last meal. Glucose of more than 200 mg/dL in a nonstressed, ambulatory subject supports the diagnosis of Diabetes Mellitus. Performed By: #### L IPID, CMP, PSAS, TSH3, CBC #### [address] Commemt1 Glu2: Cleaned Meter Normal [facility] Comment on above: Result Comment: PERF ORMED BY: [place] [address] PATHOLOGIST ASSOCIATE PROFESSOR OF SURGERY JUAN DIEGO CAMACHO M.D. Performed By: #### L IPID, CMP, PSAS, TSH3, CBC #### [address] Glucose [Mass/Vol] 79 mg/dL Normal [facility] Comment on above: Result Comment: [place] om Glucose Reference Range is dependent on time and content of last meal. Glucose of more than 200 mg/dL in a nonstressed, ambulatory subject supports the diagnosis of Diabetes Mellitus. Performed By: #### L IPID, CMP, PSAS, TSH3, CBC #### [address] Complete Blood Count Auto Di ffon 06-29-2025 Basophils (Bld) [#/Vol] 0.0 10*3/uL Normal 0.0-0.2 [facility] Comment on above: Result Comment: PERF ORMED BY: [place] [address] PATHOLOGIST ASSOCIATE PROFESSOR OF SURGERY JUAN DIEGO CAMACHO M.D. Performed By: #### A 1C WTH eA #### [address] Basophils/100 WBC (Bld) 0.7 % Normal . [facility] Comment on above: Performed By: #### A 1C WT eA #### [facility] [address] [place] [address] [place] Eosinophils (Bld) [#/Vol] 0.2 10*3/uL Normal 0.0-0.45 [facility] Comment on above: Performed By: #### A 1C WT eA #### [facility] [address] Eosinophils/100 WBC (Bld) 5.2 % Normal . [facility] Comment on above: Performed By: #### A 1C WT eA #### [address] Erythrocyte distribution width (RBC) [Ratio] 16.0 % High 12.0-14.8 [facility] Comment on above: Performed By: #### A 1C WT eA #### [address] Hematocrit (Bld) [Volume fraction] 30.4 % Low 38.8-50.0 [facility] Comment on above: Performed By: #### A 1C WT eA #### [address] Hemoglobin (Bld) [Mass/Vol] 10.1 g/dL Low 13.0-17.0 [facility] Comment on above: Performed By: #### A 1C WT eA #### [place] [address] [place] Lymphocytes (Bld) [#/Vol] 1.0 10*3/uL Normal 1.00-4.8 [facility] Comment on above: Performed By: #### A 1C WT eA #### [place] [address] [place] Lymphocytes/100 WBC (Bld) 31.6 % Normal . [facility] Comment on above: Performed By: #### A 1C WTH eA #### [address] MCH (RBC) [Entitic mass] 29.3 pg Normal 27.5-35.2 [facility] Comment on above: Performed By: #### A 1C WT eA #### [facility] [address] MCV (RBC) [Entitic vol] 88.1 fL Normal 83.5-101 [facility] Comment on above: Performed By: #### A 1C WT eA #### [address] Mean Corpuscular HGB Conc 33.2 g/dL Normal 32.5-35.6 [facility] Comment on above: Performed By: #### A 1C WT eA #### [address] Monocytes (Bld) [#/Vol] 0.5 10*3/uL Normal 0.0-0.8 [facility] Comment on above: Performed By: #### A 1C WT eA #### [address] Monocytes/100 WBC (Bld) 16.1 % Normal . [facility] Comment on above: Performed By: #### A 1C WT eA #### [place] [address] [place] Neutrophils (Bld) [#/Vol] 1.5 10*3/uL Low 1.8-7.7 [facility] Comment on above: Performed By: #### A 1C WT eA #### [address] Neutrophils/100 WBC (Bld) 46.4 % Normal . [facility] Comment on above: Performed By: #### A 1C WT eA #### [address] NRBC% 0.4 /100{WBC} Normal 0-0.5 [facility] Comment on above: Performed By: #### A 1C WT eA #### [address] Platelet mean volume (Bld) [Entitic vol] 10.8 fL High 6.6-10.1 [facility] Comment on above: Performed By: #### A 1C WT eA #### [address] Platelets (Bld) [#/Vol] 197 10*3/uL Normal 150-450 [facility] Comment on above: Performed By: #### A 1C WT eA #### [address] RBC (Bld) [#/Vol] 3.45 10*6/uL Low 3.90-5.60 [facility] Comment on above: Performed By: #### A 1C WT eA #### [address] WBC (Bld) [#/Vol] 3.1 10*3/uL Low 4.1-10.5 [facility] Comment on above: Performed By: #### A 1C WT eA #### [address] White Blood Count 3.1 [CFU]/mL Low 4.1-10.5 [facility] Comment on above: Performed By: #### A 1C WT eA #### [address] Comprehensive Metabolic Pane oscar 06-29-2025 Albumin [Mass/Vol] 3.0 g/dL Low 3.5-5.7 [facility] Comment on above: Performed By: #### A 1C WT eA #### [address] Albumin/Globulin [Mass ratio] 1.1 {ratio} Normal [facility] Comment on above: Performed By: #### A 1C WT eA #### [address] ALP [Catalytic activity/Vol] 103 U/L Normal 34-104 [facility] Comment on above: Performed By: #### A 1C WT eA #### [address] ALT [Catalytic activity/Vol] U/L Low 7-52 [facility] Comment on above: Performed By: #### A 1C WTH eA #### [facility] [address] Anion gap [Moles/Vol] 9.9 mmol/L Normal 6.0-15.0 [facility] Comment on above: Performed By: #### A 1C WTH eA #### [facility] [address] AST [Catalytic activity/Vol] 7 U/L Low 13-39 [facility] Comment on above: Performed By: #### A 1C WTH eA #### [facility] [address] Bilirubin [Mass/Vol] 0.4 mg/dL Normal 0.3-1.0 [facility] Comment on above: Performed By: #### A 1C WTH eA #### [address] Calcium [Mass/Vol] 8.8 mg/dL Normal 8.6-10.3 [facility] Comment on above: Performed By: #### A 1C WTH eA #### [facility] [address] [place] [address] [place] Chloride [Moles/Vol] 106 mmol/L Normal 98-107 [facility] Comment on above: Performed By: #### A 1C WTH eA #### [facility] [address] [place] [address] [place] CO2 [Moles/Vol] 28.8 mmol/L Normal 21.0-31.0 [facility] Comment on above: Performed By: #### A 1C WTH eA #### [facility] [address] [place] [address] [place] Creatinine [Mass/Vol] 0.92 mg/dL Normal 0.70-1.30 [facility] Comment on above: Performed By: #### A 1C WTH eA #### [facility] [address] [place] [address] [place] Creatinine Clr Calc Pharmacy 95.36 Normal [facility] Comment on above: Performed By: #### A 1C WT eA #### [place] [address] [place] GFR/1.73 sq M.predicted MDRD (S/P/Bld) [Vol rate/Area] mL/min/{1.73_m2} Normal [facility] Comment on above: Performed By: #### A 1C WT eA #### [address] Globulin (S) [Mass/Vol] 2.7 g/dL Normal [facility] Comment on above: Performed By: #### A 1C WT eA #### [address] Glucose [Mass/Vol] 101 mg/dL High 70-100 [facility] Comment on above: Result Comment: [facility] Glucose Reference Range is dependent on time and content of last meal. Glucose of more than 200 mg/dL in a nonstressed, ambulatory subject supports the diagnosis of Diabetes Mellitus. ADA recommended reference range Performed By: #### A 1C WT eA #### [address] Potassium [Moles/Vol] 3.7 mmol/L Normal 3.5-5.1 [facility] Comment on above: Performed By: #### A 1C WT eA #### [address] Protein [Mass/Vol] 5.7 g/dL Low 6.4-8.9 [facility] Comment on above: Performed By: #### A 1C WT eA #### [address] Sodium [Moles/Vol] 141 mmol/L Normal 136-145 [facility] Comment on above: Performed By: #### A 1C WT eA #### [address] Urea nitrogen [Mass/Vol] 13 mg/dL Normal 7-25 [facility] Comment on above: Performed By: #### A 1C WT eA #### [address] Glucose Poct Glucometerson 0 06-29-2025 Commemt1 Glu2: Cleaned Meter Normal [facility] Comment on above: Result Comment: PERF ORMED BY: [place] [address] PATHOLOGIST ASSOCIATE PROFESSOR OF SURGERY JUAN DIEGO CAMACHO M.D. Performed By: #### C UU #### [place] [address] [place] Glucose [Mass/Vol] 110 mg/dL Normal [facility] Comment on above: Result Comment: [place] om Glucose Reference Range is dependent on time and content of last meal. Glucose of more than 200 mg/dL in a nonstressed, ambulatory subject supports the diagnosis of Diabetes Mellitus. Performed By: #### C UU #### [place] [address] [place] Glucose [Mass/Vol] 98 mg/dL Normal [facility] Comment on above: Result Comment: [place] om Glucose Reference Range is dependent on time and content of last meal. Glucose of more than 200 mg/dL in a nonstressed, ambulatory subject supports the diagnosis of Diabetes Mellitus. PERFORMED BY: [place] [address] PATHOLOGIST ASSOCIATE PROFESSOR OF SURGERY JUAN DIEGO CAMACHO M.D. Performed By: #### L IPID, CMP, PSAS, TSH3, CBC #### [place] [address] [place] Glucose [Mass/Vol] 123 mg/dL Normal [facility] Comment on above: Result Comment: [place] om Glucose Reference Range is dependent on time and content of last meal. Glucose of more than 200 mg/dL in a nonstressed, ambulatory subject supports the diagnosis of Diabetes Mellitus. PERFORMED BY: [place] [address] PATHOLOGIST ASSOCIATE PROFESSOR OF SURGERY JUAN DIEGO CAMACHO M.D. Performed By: #### C UU #### [place] [address] [place] Glucose [Mass/Vol] 105 mg/dL Normal [facility] Comment on above: Result Comment: [facility] Glucose Reference Range is dependent on time and content of last meal. Glucose of more than 200 mg/dL in a nonstressed, ambulatory subject supports the diagnosis of Diabetes Mellitus. PERFORMED BY: [place] [id number] PATHOLOGIST ASSOCIATE PROFESSOR OF SURGERY JUAN DIEGO CAMACHO M.D. Performed By: #### L IPID, CMP, PSAS, TSH3, CBC #### [facility] [address] [place], [place] [id number] [facility] Prealbuminon 06-29-2025 Prealbumin [Mass/Vol] 9.7 mg/dL Low 17.0-34.0 [facility] Comment on above: Result Comment: PERF ORMED BY: [place] [address] PATHOLOGIST ASSOCIATE PROFESSOR OF SURGERY JUAN DIEGO CAMACHO M.D. Performed By: #### A 1C WTH eA #### [place] [id number] [facility] BASIC METABOLIC PANELon 06-19 Anion gap [Moles/Vol] 7 mmol/L Normal 7-20 [facility] Comment on above: Performed By: #### L [id number] ####[facility] (BEAKER)[address] [address] Calcium [Mass/Vol] 8.5 mg/dL Low 8.6-10.3 [facility] Comment on above: Performed By: #### L [id number] ####[facility] ([facility]AKER)[address] [place] [address] Chloride [Moles/Vol] 107 mmol/L Normal 98-107 [facility] Comment on above: Performed By: #### L [id number] ####[facility] ([facility]AKER)[address] [place] [address] CO2 [Moles/Vol] 28 mmol/L Normal 21-31 [facility] Comment on above: Performed By: #### L [id number] ####[facility] ([facility]AKER)[address] [place] [address] Creatinine [Mass/Vol] 0.79 mg/dL Normal 0.60-1.30 [facility] Comment on above: Performed By: #### L [id number] ####[facility] ([facility])[address] [place] [address] GLOMERULAR FILTRATION RATE ML/MIN/1.73 SQ M.PREDICTED 82.4 mL/min/1.73m*2 Normal >60.0 [facility] Comment on above: Result Comment: The [facility]???s estimated glomerular filtration rate (eGFR) will no [...] of individuals. Performed By: #### L [id number] ####[facility] ([facility])[address] [place] [address] Glucose [Mass/Vol] 90 mg/dL Normal 70-100 [facility] Comment on above: Performed By: #### L [id number] ####[facility] ([facility])[address] [place] [address] Potassium [Moles/Vol] 3.3 mmol/L Low 3.5-5.1 [facility] Comment on above: Performed By: #### L [id number] ####[facility] ([facility])[address] [place] [address] Sodium [Moles/Vol] 139 mmol/L Normal 136-145 [facility] Comment on above: Performed By: #### L [id number] ####[facility] [place] [address] Urea nitrogen [Mass/Vol] 19 mg/dL Normal 7-25 [facility] Comment on above: Performed By: #### L [id number] ####[facility] [place] [address] UREA NITROGEN/CREATININE (MASS RATIO) IN SER/PLAS 24.1 Normal [facility] Comment on above: Performed By: #### L [id number] ####[facility] ([facility])[address] [place] [address] CBC WITH AUTO DIFFERENTIALon 06-28-2025 Basophils (Bld) [#/Vol] 0.02 10*3/uL Normal 0.00-0.20 [facility] Comment on above: Performed By: #### L [id number] ####[facility] ([facility])[address] [place] [address] Basophils/100 WBC (Bld) 0.7 % Normal 0.0-1.0 [facility] Comment on above: Performed By: #### L [id number] ####[facility] ([facility])[address] [place] [address] Eosinophils (Bld) [#/Vol] 0.16 10*3/uL Normal 0.00-0.50 [facility] Comment on above: Performed By: #### L [id number] ####[facility] ([facility])[address] [place] [address] Eosinophils/100 WBC (Bld) 5.6 % Normal 0.0-6.0 [facility] Comment on above: Performed By: #### L [id number] ####[facility] ([facility])[address] [place] [address] Erythrocyte distribution width (RBC) [Ratio] 16.2 % High 11.5-15.0 [facility] Comment on above: Performed By: #### L [id number] ####[facility] [place] [address] ERYTHROCYTE MEAN CORPUSCULAR HEMOGLOBIN CONCENTRATION (G/DL) BY AUTOMATED 31.6 g/dL Low 32.0-35.0 [facility] Comment on above: Performed By: #### L [id number] ####[facility] ([facility]AKER)[address] [place] [address] Hematocrit (Bld) [Volume fraction] 30.4 % Low 36.0-50.0 [facility] Comment on above: Performed By: #### L [id number] ####[facility] ([facility]AKER)[address] [place] [address] Hemoglobin (Bld) [Mass/Vol] 9.6 g/dL Low 12.0-17.0 [facility] Comment on above: Performed By: #### L [id number] ####[facility] ([facility]AKER)[address] [place] [address] Immature granulocytes (Bld) [#/Vol] 0.01 10*3/uL Normal 0.00-0.20 [facility] Comment on above: Performed By: #### L [id number] ####[facility] ([facility]AKER)[address] [place] [address] Immature granulocytes/100 WBC (Bld) 0.3 % Normal 0.0-1.0 [facility] Comment on above: Performed By: #### L [id number] ####[facility] ([facility]ER)[address] [place] [address] Lymphocytes (Bld) [#/Vol] 0.98 10*3/uL Low 1.20-4.00 [facility] Comment on above: Performed By: #### L [id number] ####[facility] ([facility]ER)[address] [place] [address] Lymphocytes/100 WBC (Bld) 34.3 % Normal 20.0-45.0 [facility] Comment on above: Performed By: #### L [id number] ####[facility] ([facility]AKER)[address] [place] [address] MCH (RBC) [Entitic mass] 29.2 pg Normal 27.0-33.0 [facility] Comment on above: Performed By: #### L [id number] ####[facility] ([facility]AKER)[address] [place] [address] MCV (RBC) [Entitic vol] 92.4 fL Normal 82.0-98.0 [facility] Comment on above: Performed By: #### L [id number] ####[facility] ([facility]ER)[address] [place] [address] Monocytes (Bld) [#/Vol] 0.40 10*3/uL Normal 0.10-1.00 [facility] Comment on above: Performed By: #### L [id number] ####[facility] ([facility])[address] [place] [address] Monocytes/100 WBC (Bld) 14.0 % High 5.0-12.0 [facility] Comment on above: Performed By: #### L [id number] ####[facility] ([facility])[address] [place] [address] Neutrophils (Bld) [#/Vol] 1.29 10*3/uL Low 1.60-7.60 [facility] Comment on above: Performed By: #### L [id number] ####[facility] ([facility])[address] [place], [place] [address] Neutrophils/100 WBC (Bld) 45.1 % Normal 40.0-72.0 [facility] Comment on above: Performed By: #### L [id number] ####[facility] ([facility])[address] [place] [address] NRBC (PER 100 WBCS) BY AUTOMATED COUNT 0.0 % Normal 0 [facility] Comment on above: Performed By: #### L [id number] ####[facility] [place] [address] PLATELETS (10*3/UL) IN BLOOD AUTOMATED COUNT 250 10*3/uL Normal 150-400 [facility] [facility] Comment on above: Performed By: #### L [id number] ####[facility] ([facility])[address] [place] [address] RBC (Bld) [#/Vol] 3.29 10*6/uL Low 3.80-5.70 [facility] Comment on above: Performed By: #### L [id number] ####[facility] ([facility])[address] [place] [address] WBC (Bld) [#/Vol] 2.86 10*3/uL Low 4.00-10.60 [facility] Comment on above: Performed By: #### L [id number] ####[facility] ([facility])[address] [place] [address] DSon 06-28-2025 DS Normal [facility] Glucose Poct Glucometerson 0 06-28-2025 Glucose [Mass/Vol] 142 mg/dL Normal [facility] Comment on above: Result Comment: [facility] Glucose Reference Range is dependent on time and content of last meal. Glucose of more than 200 mg/dL in a nonstressed, ambulatory subject supports the diagnosis of Diabetes Mellitus. PERFORMED BY: [facility] [address] [place] [address] PATHOLOGIST ASSOCIATE PROFESSOR OF SURGERY JUAN DIEGO CAMACHO M.D. Performed By: #### G AMBREEN #### Point of Care testing , MAGNESIUMon 06-28-2025 Magnesium [Mass/Vol] 2.1 mg/dL Normal 1.9-2.7 [facility] Comment on above: Performed By: #### L [id number] ####[facility] ([facility])[address] [place] [address] NURSNOTEon 06-28-2025 NURSNOTE Report given to EMT with [facility]. Transport via stretcher to [facility]. Report called to charge nurse at [phone]. IV's to Left forearm left in place per Dr. Whitley, d/t pt continuing IV antibiotics. Normal [facility] PHOSPHORUSon 06-28-2025 Magnesium [Mass/Vol] 2.5 mg/dL Normal 2.5-5.0 [facility] Comment on above: Performed By: #### L [id number] ####[facility] ([facility])[address] [place] [address] POCT GLUCOSE METER UNSOLICIT ED RESULTSon 06-28-2025 Glucose [Mass/Vol] 100 mg/dL Normal 70-105 [facility] Comment on above: Order Comment: Waive d Testing in the ED is performed under the ED CLIA certificate #[id number]. Result Comment: [email or web address] Performed By: #### L [id number] ####[facility] [place] [address] Glucose [Mass/Vol] 87 mg/dL Normal 70-105 [facility] Comment on above: Order Comment: Waive d Testing in the ED is performed under the ED CLIA certificate #[id number]. Result Comment: [email or web address] Performed By: #### L [id number] ####[facility] ([facility])[address] [place] [address] 30on 06-27-2025 30 Normal [facility] BASIC METABOLIC PANELon 09 Anion gap [Moles/Vol] 8 mmol/L Normal 7-20 [facility] Comment on above: Performed By: #### L [id number] ####[facility] [place] [address] Calcium [Mass/Vol] 8.4 mg/dL Low 8.6-10.3 [facility] Comment on above: Performed By: #### L [id number] ####[facility] [place] [address] Chloride [Moles/Vol] 107 mmol/L Normal 98-107 [facility] Comment on above: Performed By: #### L [id number] ####[facility] ([facility])[address] [place] [address] CO2 [Moles/Vol] 27 mmol/L Normal 21-31 [facility] Comment on above: Performed By: #### L [id number] ####[facility] ([employer] [place] [address] Creatinine [Mass/Vol] 0.82 mg/dL Normal 0.60-1.30 [facility] Comment on above: Performed By: #### L [id number] ####[facility] ([facility])[address] [place] [address] GLOMERULAR FILTRATION RATE ML/MIN/1.73 SQ M.PREDICTED 78.8 mL/min/1.73m*2 Normal >60.0 [facility] Comment on above: Result Comment: [facility]???s estimated glomerular filtration rate (eGFR) will no [...] of individuals. Performed By: #### L [id number] ####[facility] ([facility])[address] [place] [address] Glucose [Mass/Vol] 86 mg/dL Normal 70-100 [facility] Comment on above: Performed By: #### L [id number] ####[facility] ([facility])[address] [place] [address] Potassium [Moles/Vol] 3.4 mmol/L Low 3.5-5.1 [facility] Comment on above: Performed By: #### L [id number] ####[facility] ([facility])[address] [place] [address] Sodium [Moles/Vol] 139 mmol/L Normal 136-145 [facility] Comment on above: Performed By: #### L [id number] ####[facility] ([facility])[address] [place] [address] Urea nitrogen [Mass/Vol] 17 mg/dL Normal 7-25 [facility] Comment on above: Performed By: #### L [id number] ####[facility] [place] [address] UREA NITROGEN/CREATININE (MASS RATIO) IN SER/PLAS 20.7 Normal [facility] Comment on above: Performed By: #### L [id number] ####[facility] [place] [address] CBC WITH AUTO DIFFERENTIALon 06-27-2025 Basophils (Bld) [#/Vol] 0.01 10*3/uL Normal 0.00-0.20 [facility] Comment on above: Performed By: #### L [id number] ####[facility] ([facility])[address] [place] [address] Basophils/100 WBC (Bld) 0.3 % Normal 0.0-1.0 [facility] Comment on above: Performed By: #### L [id number] ####[facility] ([facility])[address] [place] [address] Eosinophils (Bld) [#/Vol] 0.17 10*3/uL Normal 0.00-0.50 [facility] Comment on above: Performed By: #### L [id number] ####[facility] ([facility])[address] [place] [address] Eosinophils/100 WBC (Bld) 5.5 % Normal 0.0-6.0 [facility] Comment on above: Performed By: #### L [id number] ####[facility] ([facility])[address] [place] [address] Erythrocyte distribution width (RBC) [Ratio] 16.0 % High 11.5-15.0 [facility] Comment on above: Performed By: #### L [id number] ####[facility] [place] [address] ERYTHROCYTE MEAN CORPUSCULAR HEMOGLOBIN CONCENTRATION (G/DL) BY AUTOMATED 31.5 g/dL Low 32.0-35.0 [facility] Comment on above: Performed By: #### L [id number] ####[facility] ([facility])[address] [place] [address] Hematocrit (Bld) [Volume fraction] 30.2 % Low 36.0-50.0 [facility] Comment on above: Performed By: #### L [id number] ####[facility] ([facility])[address] [place] [address] Hemoglobin (Bld) [Mass/Vol] 9.5 g/dL Low 12.0-17.0 [facility] Comment on above: Performed By: #### L [id number] ####[facility] ([facility])[address] [place] [address] Immature granulocytes (Bld) [#/Vol] 0.01 10*3/uL Normal 0.00-0.20 [facility] Comment on above: Performed By: #### L [id number] ####[facility] ([facility])[address] [place] [address] Immature granulocytes/100 WBC (Bld) 0.3 % Normal 0.0-1.0 [facility] Comment on above: Performed By: #### L [id number] ####[facility] ([facility])[address] [place] [address] Lymphocytes (Bld) [#/Vol] 0.88 10*3/uL Low 1.20-4.00 [facility] Comment on above: Performed By: #### L [id number] ####[facility] ([facility])[address] [place] [address] Lymphocytes/100 WBC (Bld) 28.6 % Normal 20.0-45.0 [facility] Comment on above: Performed By: #### L [id number] ####[facility] ([facility])[address] [place] [address] MCH (RBC) [Entitic mass] 29.1 pg Normal 27.0-33.0 [facility] Comment on above: Performed By: #### L [id number] ####[facility] ([facility])[address] [place] [address] MCV (RBC) [Entitic vol] 92.6 fL Normal 82.0-98.0 [facility] Comment on above: Performed By: #### L [id number] ####[facility] ([facility])[address] [place] [address] Monocytes (Bld) [#/Vol] 0.45 10*3/uL Normal 0.10-1.00 [facility] Comment on above: Performed By: #### L [id number] ####[facility] [place] [address] Monocytes/100 WBC (Bld) 14.6 % High 5.0-12.0 [facility] Comment on above: Performed By: #### L [id number] ####[facility] ([facility])[address] [place] [address] Neutrophils (Bld) [#/Vol] 1.56 10*3/uL Low 1.60-7.60 [facility] Comment on above: Performed By: #### L [id number] ####[facility] [place] [address] Neutrophils/100 WBC (Bld) 50.7 % Normal 40.0-72.0 [facility] Comment on above: Performed By: #### L [id number] ####[facility] ([facility])[address] [place] [address] NRBC (PER 100 WBCS) BY AUTOMATED COUNT 0.0 % Normal 0 [facility] Comment on above: Performed By: #### L [id number] ####[facility] ([facility])[address] [place] [address] PLATELETS (10*3/UL) IN BLOOD AUTOMATED COUNT 262 10*3/uL Normal 150-400 [facility] Comment on above: Performed By: #### L [id number] ####[facility] ([facility])[address] [place] [address] RBC (Bld) [#/Vol] 3.26 10*6/uL Low 3.80-5.70 [facility] Comment on above: Performed By: #### L [id number] ####[facility] ([facility])[address] [place] [address] WBC (Bld) [#/Vol] 3.08 10*3/uL Low 4.00-10.60 [facility] Comment on above: Performed By: #### L [id number] ####[facility] ([facility])[address] [place] [address] MAGNESIUMon 06-27-2025 Magnesium [Mass/Vol] 2.1 mg/dL Normal 1.9-2.7 [facility] Comment on above: Performed By: #### L [id number] ####[facility] ([facility])[address] [place] [address] PHOSPHORUSon 06-27-2025 Magnesium [Mass/Vol] 2.4 mg/dL Low 2.5-5.0 [facility] Comment on above: Performed By: #### L [id number] ####[facility] ([facility])[address] [place] [address] POCT GLUCOSE METER UNSOLICIT ED RESULTSon 06-27-2025 Glucose [Mass/Vol] 146 mg/dL High 70-105 [facility] Comment on above: Order Comment: Waive d Testing in the ED is performed under the ED CLIA certificate #[id number]. Result Comment: [email or web address] [id number] Value Noted Performed By: #### L [id number] ####[facility] ([facility])[address] [place] [address] Glucose [Mass/Vol] 138 mg/dL High 70-105 [facility] Comment on above: Order Comment: Waive d Testing in the ED is performed under the ED CLIA certificate #[id number]. Result Comment: [email or web address] Performed By: #### L [id number] ####[facility] ([facility])[address] [place] [address] Glucose [Mass/Vol] 111 mg/dL High 70-105 [facility] Comment on above: Order Comment: Waive d Testing in the ED is performed under the ED CLIA certificate #[id number]. Result Comment: [email or web address] Performed By: #### L [id number] ####[facility] ([employer])[address] [place] [address] Glucose [Mass/Vol] 85 mg/dL Normal 70-105 [facility] Comment on above: Order Comment: Waive d Testing in the ED is performed under the ED CLIA certificate #[id number]. Result Comment: [email or web address] Performed By: #### L [id number] ####[facility] ([facility])[address] [place] [address] Glucose [Mass/Vol] 66 mg/dL Low 70-105 [facility] Comment on above: Order Comment: Waive d Testing in the ED is performed under the ED CLIA certificate #[id number]. Result Comment: [email or web address] Performed By: #### L [id number] ####[facility] ([facility])[address] [place] [address] 30on 06-26-2024 30 Normal [facility] BASIC METABOLIC PANELon 09 Anion gap [Moles/Vol] 7 mmol/L Normal 7-20 [facility] Comment on above: Performed By: #### L [id number] ####[facility] ([facility])[address] [place] [address] Calcium [Mass/Vol] 8.1 mg/dL Low 8.6-10.3 [facility] Comment on above: Performed By: #### L [id number] ####[facility] ([facility])[address] [place] [address] Chloride [Moles/Vol] 110 mmol/L High 98-107 [facility] Comment on above: Performed By: #### L [id number] ####[facility] ([facility])[address] [place] [address] CO2 [Moles/Vol] 27 mmol/L Normal 21-31 [facility] Comment on above: Performed By: #### L [id number] ####[facility] ([facility])[address] [place] [address] Creatinine [Mass/Vol] 0.84 mg/dL Normal 0.60-1.30 [facility] Comment on above: Performed By: #### L [id number] ####[facility] ([facility])[address] [place] [address] GLOMERULAR FILTRATION RATE ML/MIN/1.73 SQ M.PREDICTED 76.6 mL/min/1.73m*2 Normal >60.0 [facility] Comment on above: Result Comment: The [facility]???s estimated glomerular filtration rate (eGFR) will no [...] of individuals. Performed By: #### L [id number] ####[facility] ([facility])[address] [place] [address] Glucose [Mass/Vol] 82 mg/dL Normal 70-100 [facility] Comment on above: Performed By: #### L [id number] ####[facility] ([facility])[address] [place] [address] Potassium [Moles/Vol] 3.5 mmol/L Normal 3.5-5.1 [facility] Comment on above: Performed By: #### L [id number] ####[facility] ([facility])[address] [place] [address] Sodium [Moles/Vol] 140 mmol/L Normal 136-145 [facility] Comment on above: Performed By: #### L [id number] ####[facility] ([facility])[address] [place] [address] Urea nitrogen [Mass/Vol] 23 mg/dL Normal 7-25 [facility] Comment on above: Performed By: #### L [id number] ####[facility] ([facility])[address] [place] [address] UREA NITROGEN/CREATININE (MASS RATIO) IN SER/PLAS 27.4 Normal [facility] Comment on above: Performed By: #### L [id number] ####[facility] ([facility])[address] [place] [address] CBC WITH AUTO DIFFERENTIALon 06-26-2025 Basophils (Bld) [#/Vol] 0.01 10*3/uL Normal 0.00-0.20 [facility] Comment on above: Performed By: #### L [id number] ####[facility] ([facility])[address] [place] [address] Basophils/100 WBC (Bld) 0.3 % Normal 0.0-1.0 [facility] Comment on above: Performed By: #### L [id number] ####[facility] ([facility])[address] [place] [address] Eosinophils (Bld) [#/Vol] 0.17 10*3/uL Normal 0.00-0.50 [facility] Comment on above: Performed By: #### L [id number] ####[facility] ([facility])[address] [place] [address] Eosinophils/100 WBC (Bld) 5.9 % Normal 0.0-6.0 [facility] Comment on above: Performed By: #### L [id number] ####[facility] ([facility])[address] [place] [address] Erythrocyte distribution width (RBC) [Ratio] 16.4 % High 11.5-15.0 [facility] Comment on above: Performed By: #### L [id number] ####[facility] [place] [address] ERYTHROCYTE MEAN CORPUSCULAR HEMOGLOBIN CONCENTRATION (G/DL) BY AUTOMATED 30.8 g/dL Low 32.0-35.0 [facility] Comment on above: Performed By: #### L [id number] ####[facility] [place] [address] Hematocrit (Bld) [Volume fraction] 28.9 % Low 36.0-50.0 [facility] Comment on above: Performed By: #### L [id number] ####[facility] ([facility])[address] [place] [address] Hemoglobin (Bld) [Mass/Vol] 8.9 g/dL Low 12.0-17.0 [facility] Comment on above: Performed By: #### L [id number] ####[facility] ([facility])[address] [place] [address] Immature granulocytes (Bld) [#/Vol] 0.01 10*3/uL Normal 0.00-0.20 [facility] Comment on above: Performed By: #### L [id number] ####[facility] ([facility])[address] [place] [address] Immature granulocytes/100 WBC (Bld) 0.3 % Normal 0.0-1.0 [facility] Comment on above: Performed By: #### L [id number] ####[facility] ([facility])[address] [place] [address] Lymphocytes (Bld) [#/Vol] 0.99 10*3/uL Low 1.20-4.00 [facility] Comment on above: Performed By: #### L [id number] ####[facility] [place] [address] Lymphocytes/100 WBC (Bld) 34.3 % Normal 20.0-45.0 [facility] Comment on above: Performed By: #### L [id number] ####[facility] ([facility])[address] [place] [address] MCH (RBC) [Entitic mass] 28.4 pg Normal 27.0-33.0 [facility] Comment on above: Performed By: #### L [id number] ####[facility] ([facility])[address] [place] [address] MCV (RBC) [Entitic vol] 92.3 fL Normal 82.0-98.0 [facility] Comment on above: Performed By: #### L [id number] ####[facility] ([facility])[address] [place] [address] Monocytes (Bld) [#/Vol] 0.48 10*3/uL Normal 0.10-1.00 [facility] Comment on above: Performed By: #### L [id number] ####[facility] ([facility])[address] [place] [address] Monocytes/100 WBC (Bld) 16.6 % High 5.0-12.0 [facility] Comment on above: Performed By: #### L [id number] ####[facility] ([facility])[address] [place] [address] Neutrophils (Bld) [#/Vol] 1.23 10*3/uL Low 1.60-7.60 [facility] Comment on above: Performed By: #### L [id number] ####[facility] ([facility])[address] [place] [address] Neutrophils/100 WBC (Bld) 42.6 % Normal 40.0-72.0 [facility] Comment on above: Performed By: #### L [id number] ####[facility] [place] [address] NRBC (PER 100 WBCS) BY AUTOMATED COUNT 0.0 % Normal 0 [facility] Comment on above: Performed By: #### L [id number] ####[facility] [place] [address] PLATELETS (10*3/UL) IN BLOOD AUTOMATED COUNT 243 10*3/uL Normal 150-400 [facility] Comment on above: Performed By: #### L [id number] ####[facility] ([facility])[address] [place] [address] RBC (Bld) [#/Vol] 3.13 10*6/uL Low 3.80-5.70 [facility] Comment on above: Performed By: #### L [id number] ####[facility] ([facility])[address] [place] [address] WBC (Bld) [#/Vol] 2.89 10*3/uL Low 4.00-10.60 [facility] Comment on above: Performed By: #### L [id number] ####[facility] ([facility])[address] [place] [address] MAGNESIUMon 06-26-2025 Magnesium [Mass/Vol] 2.1 mg/dL Normal 1.9-2.7 [facility] Comment on above: Performed By: #### L [id number] ####[facility] ([facility])[address] [place] [address] PHOSPHORUSon 06-26-2025 Magnesium [Mass/Vol] 2.7 mg/dL Normal 2.5-5.0 [facility] Comment on above: Performed By: #### L [id number] ####[facility] ([facility])[address] [place] [address] POCT GLUCOSE METER UNSOLICIT ED RESULTSon 06-26-2025 Glucose [Mass/Vol] 105 mg/dL Normal 70-105 [facility] Comment on above: Order Comment: Waive d Testing in the ED is performed under the ED CLIA certificate #[id number]. Result Comment: [email or web address] [id number] Value Noted Performed By: #### L [id number] ####[facility] ([facility])[address] [place] [address] Glucose [Mass/Vol] 107 mg/dL High 70-105 [facility] Comment on above: Order Comment: Waive d Testing in the ED is performed under the ED CLIA certificate #[id number]. Result Comment: [email or web address] Performed By: #### L [id number] ####[facility] ([facility])[address] [place] [address] Glucose [Mass/Vol] 92 mg/dL Normal 70-105 [facility] Comment on above: Order Comment: Waive d Testing in the ED is performed under the ED CLIA certificate #[id number]. Result Comment: [email or web address] Performed By: #### L [id number] ####[facility] [place] [address] Glucose [Mass/Vol] 85 mg/dL Normal 70-105 [facility] Comment on above: Order Comment: Waive d Testing in the ED is performed under the ED CLIA certificate #[id number]. Result Comment: [email or web address] del rosario [email or web address] Performed By: #### L [id number] ####[facility] ([facility])[address] [place] [address] 30on 06-25-2024 30 Normal [facility] 30 Normal [facility] BASIC METABOLIC PANELon Anion gap [Moles/Vol] 11 mmol/L Normal 7-20 [facility] Comment on above: Performed By: #### L [id number] ####[facility] [place] [address] Calcium [Mass/Vol] 8.2 mg/dL Low 8.6-10.3 [facility] Comment on above: Performed By: #### L [id number] ####[facility] [facility] [place] [address] Chloride [Moles/Vol] 109 mmol/L High 98-107 [facility] Comment on above: Performed By: #### L [id number] ####[facility] ([facility])[address] [place] [address] CO2 [Moles/Vol] 24 mmol/L Normal 21-31 [facility] Comment on above: Performed By: #### L [id number] ####[facility] ([facility])[address] [place] [address] Creatinine [Mass/Vol] 0.72 mg/dL Normal 0.60-1.30 [facility] Comment on above: Performed By: #### L [id number] ####[facility] ([facility])[address] [place] [address] GLOMERULAR FILTRATION RATE ML/MIN/1.73 SQ M.PREDICTED 92.2 mL/min/1.73m*2 Normal >60.0 [facility] Comment on above: Result Comment: The [facility]???s estimated glomerular filtration rate (eGFR) will no [...] of individuals. Performed By: #### L [id number] ####[facility] ([facility])[address] [place] [address] Glucose [Mass/Vol] 78 mg/dL Normal 70-100 [facility] Comment on above: Performed By: #### L [id number] ####[facility] ([facility])[address] [place] [address] Potassium [Moles/Vol] 3.7 mmol/L Normal 3.5-5.1 [facility] Comment on above: Performed By: #### L [id number] ####[facility] ([facility])[address] [place] [address] Sodium [Moles/Vol] 140 mmol/L Normal 136-145 [facility] Comment on above: Performed By: #### L [id number] ####[facility] ([facility])[address] [place] [address] Urea nitrogen [Mass/Vol] 23 mg/dL Normal 7-25 [facility] Comment on above: Performed By: #### L [id number] ####[facility] ([facility])[address] [place] [address] UREA NITROGEN/CREATININE (MASS RATIO) IN SER/PLAS 31.9 Normal [facility] Comment on above: Performed By: #### L [id number] ####[facility] ([facility] [place] [address] CBC WITH AUTO DIFFERENTIALon 06-25-2025 Basophils (Bld) [#/Vol] 0.02 10*3/uL Normal 0.00-0.20 [facility] Comment on above: Performed By: #### L [id number] ####[facility] ([facility])[address] [place] [address] Basophils/100 WBC (Bld) 0.6 % Normal 0.0-1.0 [facility] Comment on above: Performed By: #### L [id number] ####[facility] ([facility])[address] [place] [address] Eosinophils (Bld) [#/Vol] 0.20 10*3/uL Normal 0.00-0.50 [facility] Comment on above: Performed By: #### L [id number] ####[facility] ([facility])[address] [place] [address] Eosinophils/100 WBC (Bld) 5.8 % Normal 0.0-6.0 [facility] Comment on above: Performed By: #### L [id number] ####[facility] ([facility])[address] [place] [address] Erythrocyte distribution width (RBC) [Ratio] 16.3 % High 11.5-15.0 [facility] Comment on above: Performed By: #### L [id number] ####[facility] ([facility])[address] [place] [address] ERYTHROCYTE MEAN CORPUSCULAR HEMOGLOBIN CONCENTRATION (G/DL) BY AUTOMATED 31.5 g/dL Low 32.0-35.0 [facility] Comment on above: Performed By: #### L [id number] ####[facility] ([facility])[address] [place] [address] Hematocrit (Bld) [Volume fraction] 29.5 % Low 36.0-50.0 [facility] Comment on above: Performed By: #### L [id number] ####[facility] ([facility])[address] [place] [address] Hemoglobin (Bld) [Mass/Vol] 9.3 g/dL Low 12.0-17.0 [facility] Comment on above: Performed By: #### L [id number] ####[facility] ([facility])[address] [place] [address] Immature granulocytes (Bld) [#/Vol] 0.02 10*3/uL Normal 0.00-0.20 [facility] Comment on above: Performed By: #### L [id number] ####[facility] ([facility])[address] [place] [address] Immature granulocytes/100 WBC (Bld) 0.6 % Normal 0.0-1.0 [facility] Comment on above: Performed By: #### L [id number] ####[facility] ([facility])[address] [place] [address] Lymphocytes (Bld) [#/Vol] 1.02 10*3/uL Low 1.20-4.00 [facility] Comment on above: Performed By: #### L [id number] ####[facility] ([facility])[address] [place] [address] Lymphocytes/100 WBC (Bld) 29.5 % Normal 20.0-45.0 [facility] Comment on above: Performed By: #### L [id number] ####[facility] ([facility])[address] [place] [address] MCH (RBC) [Entitic mass] 29.2 pg Normal 27.0-33.0 [facility] Comment on above: Performed By: #### L [id number] ####[facility] ([facility])[address] [place] [address] MCV (RBC) [Entitic vol] 92.8 fL Normal 82.0-98.0 [facility] Comment on above: Performed By: #### L [id number] ####[facility] ([facility])[address] [place] [address] Monocytes (Bld) [#/Vol] 0.54 10*3/uL Normal 0.10-1.00 [facility] Comment on above: Performed By: #### L [id number] ####[facility] ([facility])[address] [place] [address] Monocytes/100 WBC (Bld) 15.6 % High 5.0-12.0 [facility] Comment on above: Performed By: #### L [id number] ####[facility] ([facility] [place] [address] Neutrophils (Bld) [#/Vol] 1.66 10*3/uL Normal 1.60-7.60 [facility] Comment on above: Performed By: #### L [id number] ####[facility] ([facility])[address] [place] [address] Neutrophils/100 WBC (Bld) 47.9 % Normal 40.0-72.0 [facility] Comment on above: Performed By: #### L [id number] ####[facility] ([facility])[address] [place] [address] NRBC (PER 100 WBCS) BY AUTOMATED COUNT 0.0 % Normal 0 [facility] Comment on above: Performed By: #### L [id number] ####[facility] ([facility])[address] [place] [address] PLATELETS (10*3/UL) IN BLOOD AUTOMATED COUNT 259 10*3/uL Normal 150-400 [facility] Comment on above: Performed By: #### L [id number] ####[facility] ([facility])[address] [place] [address] RBC (Bld) [#/Vol] 3.18 10*6/uL Low 3.80-5.70 [facility] Comment on above: Performed By: #### L [id number] ####[facility] ([facility])[address] [place] [address] WBC (Bld) [#/Vol] 3.46 10*3/uL Low 4.00-10.60 [facility] Comment on above: Performed By: #### L [id number] ####[facility] ([facility])[address] [place] [address] MAGNESIUMon 06-25-2025 Magnesium [Mass/Vol] 2.1 mg/dL Normal 1.9-2.7 [facility] Comment on above: Performed By: #### L [id number] ####[facility] ([facility])[address] [place] [address] PHOSPHORUSon 06-25-2025 Magnesium [Mass/Vol] 2.6 mg/dL Normal 2.5-5.0 [facility] Comment on above: Performed By: #### L [id number] ####[facility] ([facility])[address] [place] [address] POCT GLUCOSE METER UNSOLICIT ED RESULTSon 06-25-2025 Glucose [Mass/Vol] 118 mg/dL High 70-105 [facility] Comment on above: Order Comment: Waive d Testing in the ED is performed under the ED CLIA certificate #[id number]. Result Comment: [email or web address] Performed By: #### L [id number] ####[facility] ([facility])[address] [place] [address] Glucose [Mass/Vol] 112 mg/dL High 70-105 [facility] Comment on above: Order Comment: Waive d Testing in the ED is performed under the ED CLIA certificate #[id number]. Result Comment: [email or web address] Performed By: #### L [id number] ####[facility] ([facility])[address] [place] [address] Glucose [Mass/Vol] 99 mg/dL Normal 70-105 [facility] Comment on above: Order Comment: Waive d Testing in the ED is performed under the ED CLIA certificate #[id number]. Result Comment: [email or web address] Performed By: #### L [id number] ####[facility] ([facility])[address] [place] [address] Glucose [Mass/Vol] 111 mg/dL High 70-105 [facility] Comment on above: Order Comment: Waive d Testing in the ED is performed under the ED CLIA certificate #[id number]. Result Comment: [email or web address] Performed By: #### L [id number] ####[facility] ([facility])[address] [place] [address] Glucose [Mass/Vol] 89 mg/dL Normal 70-105 [facility] Comment on above: Order Comment: Waive d Testing in the ED is performed under the ED CLIA certificate #[id number]. Result Comment: [email or web address] Performed By: #### L [id number] ####[facility] ([facility])[address] [place] [address] 30on 06-24-2025 30 Normal [facility] 30 Normal [facility] BASIC METABOLIC PANELon Anion gap [Moles/Vol] 4 mmol/L Low 7-20 [facility] Comment on above: Performed By: #### L [id number] ####[facility] ([facility])[address] [place] [address] Calcium [Mass/Vol] 8.0 mg/dL Low 8.6-10.3 [facility] Comment on above: Performed By: #### L [id number] ####[facility] ([facility])[address] [place] [address] Chloride [Moles/Vol] 113 mmol/L High 98-107 [facility] Comment on above: Performed By: #### L [id number] ####[facility] ([facility])[address] [place] [address] CO2 [Moles/Vol] 25 mmol/L Normal 21-31 [facility] Comment on above: Performed By: #### L [id number] ####[facility] ([facility])[address] [place] [address] Creatinine [Mass/Vol] 0.65 mg/dL Normal 0.60-1.30 [facility] Comment on above: Performed By: #### L [id number] ####[facility] ([facility])[address] [place] [address] GLOMERULAR FILTRATION RATE ML/MIN/1.73 SQ M.PREDICTED 97.0 mL/min/1.73m*2 Normal >60.0 [facility] Comment on above: Result Comment: The [facility]???s estimated glomerular filtration rate (eGFR) will no [...] of individuals. Performed By: #### L [id number] ####[facility] ([facility])[address] [place] [address] Glucose [Mass/Vol] 101 mg/dL High 70-100 [facility] Comment on above: Performed By: #### L [id number] ####[facility] ([facility])[address] [place] [address] Potassium [Moles/Vol] 3.8 mmol/L Normal 3.5-5.1 [facility] Comment on above: Performed By: #### L [id number] ####[facility] ([facility])[address] [place] [address] Sodium [Moles/Vol] 138 mmol/L Normal 136-145 [facility] Comment on above: Performed By: #### L [id number] ####[facility] ([facility])[address] [place] [address] Urea nitrogen [Mass/Vol] 21 mg/dL Normal 7-25 [facility] Comment on above: Performed By: #### L [id number] ####[facility] ([facility])[address] [address] UREA NITROGEN/CREATININE (MASS RATIO) IN SER/PLAS 32.3 Normal [facility] Comment on above: Performed By: #### L [id number] ####[facility] ([facility] [place] [address] CBC WITH AUTO DIFFERENTIALon 06-24-2025 Basophils (Bld) [#/Vol] 0.02 10*3/uL Normal 0.00-0.20 [facility] Comment on above: Performed By: #### L [id number] ####[facility] ([facility])[address] [place] [address] Basophils/100 WBC (Bld) 0.6 % Normal 0.0-1.0 [facility] Comment on above: Performed By: #### L [id number] ####[facility] ([facility] [place] [address] Eosinophils (Bld) [#/Vol] 0.17 10*3/uL Normal 0.00-0.50 [facility] Comment on above: Performed By: #### L [id number] ####[facility] ([facility] [place] [address] Eosinophils/100 WBC (Bld) 5.1 % Normal 0.0-6.0 [facility] Comment on above: Performed By: #### L [id number] ####[facility] ([facility] [place] [address] Erythrocyte distribution width (RBC) [Ratio] 16.2 % High 11.5-15.0 [facility] Comment on above: Performed By: #### L [id number] ####[facility] ([facility])[address] [place] [address] ERYTHROCYTE MEAN CORPUSCULAR HEMOGLOBIN CONCENTRATION (G/DL) BY AUTOMATED 32.6 g/dL Normal 32.0-35.0 [facility] Comment on above: Performed By: #### L [id number] ####[facility] ([facility])[address] [place] [address] Hematocrit (Bld) [Volume fraction] 27.9 % Low 36.0-50.0 [facility] Comment on above: Performed By: #### L [id number] ####[facility] ([facility])[address] [place] [address] Hemoglobin (Bld) [Mass/Vol] 9.1 g/dL Low 12.0-17.0 [facility] Comment on above: Performed By: #### L [id number] ####[facility] ([facility] [place] [address] Immature granulocytes (Bld) [#/Vol] 0.01 10*3/uL Normal 0.00-0.20 [facility] Comment on above: Performed By: #### L [id number] ####[facility] ([facility])[address] [place] [address] Immature granulocytes/100 WBC (Bld) 0.3 % Normal 0.0-1.0 [facility] Comment on above: Performed By: #### L [id number] ####[facility] ([facility])[address] [place] [address] Lymphocytes (Bld) [#/Vol] 0.70 10*3/uL Low 1.20-4.00 [facility] Comment on above: Performed By: #### L [id number] ####[facility] ([facility])[address] [place] [address] Lymphocytes/100 WBC (Bld) 21.1 % Normal 20.0-45.0 [facility] Comment on above: Performed By: #### L [id number] ####[facility] ([facility])[address] [place] [address] MCH (RBC) [Entitic mass] 29.1 pg Normal 27.0-33.0 [facility] Comment on above: Performed By: #### L [id number] ####[facility] ([facility])[address] [place] [address] MCV (RBC) [Entitic vol] 89.1 fL Normal 82.0-98.0 [facility] Comment on above: Performed By: #### L [id number] ####[facility] ([facility] [place] [address] Monocytes (Bld) [#/Vol] 0.38 10*3/uL Normal 0.10-1.00 [facility] Comment on above: Performed By: #### L [id number] ####[facility] ([facility])[address] [place] [address] Monocytes/100 WBC (Bld) 11.5 % Normal 5.0-12.0 [facility] Comment on above: Performed By: #### L [id number] ####[facility] ([facility])[address] [place] [address] Neutrophils (Bld) [#/Vol] 2.03 10*3/uL Normal 1.60-7.60 [facility] Comment on above: Performed By: #### L [id number] ####[facility] ([facility])[address] [place] [address] Neutrophils/100 WBC (Bld) 61.4 % Normal 40.0-72.0 [facility] Comment on above: Performed By: #### L [id number] ####[facility] ([facility] [place] [address] NRBC (PER 100 WBCS) BY AUTOMATED COUNT 0.0 % Normal 0 [facility] Comment on above: Performed By: #### L [id number] ####[facility] ([facility] [place] [address] PLATELETS (10*3/UL) IN BLOOD AUTOMATED COUNT 225 10*3/uL Normal 150-400 [facility] Comment on above: Performed By: #### L [id number] ####[facility] ([facility] [place] [address] RBC (Bld) [#/Vol] 3.13 10*6/uL Low 3.80-5.70 [facility] Comment on above: Performed By: #### L [id number] ####[facility] ([facility])[address] [place] [address] WBC (Bld) [#/Vol] 3.31 10*3/uL Low 4.00-10.60 [facility] Comment on above: Performed By: #### L [id number] ####[facility] ([facility])[address] [place] [address] MAGNESIUMon 06-24-2025 Magnesium [Mass/Vol] 2.2 mg/dL Normal 1.9-2.7 [facility] Comment on above: Performed By: #### L [id number] ####[facility] ([facility])[address] [place] [address] PHOSPHORUSon 06-24-2025 Magnesium [Mass/Vol] 2.6 mg/dL Normal 2.5-5.0 [facility] Comment on above: Performed By: #### L [id number] ####[facility] ([facility])[address] [place] [address] POCT GLUCOSE METER UNSOLICIT ED RESULTSon 06-24-2025 Glucose [Mass/Vol] 109 mg/dL High 70-105 [facility] Comment on above: Order Comment: Waive d Testing in the ED is performed under the ED CLIA certificate #[id number]. Result Comment: [email or web address] Performed By: #### L [id number] ####[facility] ([facility])[address] [place] [address] Glucose [Mass/Vol] 102 mg/dL Normal 70-105 [facility] Comment on above: Order Comment: Waive d Testing in the ED is performed under the ED CLIA certificate #[id number]. Result Comment: [email or web address] Performed By: #### L [id number] ####[facility] ([employer])[address] [place] [address] Glucose [Mass/Vol] 97 mg/dL Normal 70-105 [facility] Comment on above: Order Comment: Waive d Testing in the ED is performed under the ED CLIA certificate #[id number]. Result Comment: [email or web address] air Performed By: #### L [id number] ####[facility] ([employer])[address] [place] [address] Glucose [Mass/Vol] 103 mg/dL Normal 70-105 [facility] Comment on above: Order Comment: Waive d Testing in the ED is performed under the ED CLIA certificate #[id number]. Result Comment: [email or web address] Performed By: #### L [id number] ####[facility] ([employer])[address] [place] [address] Glucose [Mass/Vol] 105 mg/dL Normal 70-105 [facility] Comment on above: Order Comment: Waive d Testing in the ED is performed under the ED CLIA certificate #[id number]. Result Comment: [email or web address] Performed By: #### L [id number] ####[facility] ([employer])[address] [place] [address] 30on 06-23-2024 30 Normal [facility] BASIC METABOLIC PANELon Anion gap [Moles/Vol] 7 mmol/L Normal 7-20 [facility] Comment on above: Performed By: #### L [id number] ####[facility] ([facility])[address] [place] [address] Calcium [Mass/Vol] 8.0 mg/dL Low 8.6-10.3 [facility] Comment on above: Performed By: #### L [id number] ####[facility] ([facility])[address] [place] [address] Chloride [Moles/Vol] 110 mmol/L High 98-107 [facility] Comment on above: Performed By: #### L [id number] ####[facility] [place] [address] CO2 [Moles/Vol] 24 mmol/L Normal 21-31 [facility] Comment on above: Performed By: #### L [id number] ####[facility] ([facility])[address] [place] [address] Creatinine [Mass/Vol] 0.56 mg/dL Low 0.60-1.30 [facility] Comment on above: Performed By: #### L [id number] ####[facility] ([facility])[address] [place] [address] GLOMERULAR FILTRATION RATE ML/MIN/1.73 SQ M.PREDICTED 100.6 mL/min/1.73m*2 Normal >60.0 [facility] Comment on above: Result Comment: [facility]???s estimated glomerular filtration rate (eGFR) will no [...] of individuals. Performed By: #### L [id number] ####[facility] ([facility])[address] [place] [address] Glucose [Mass/Vol] 104 mg/dL High 70-100 [facility] Comment on above: Performed By: #### L [id number] ####[facility] ([facility])[address] [place] [address] Potassium [Moles/Vol] 3.3 mmol/L Low 3.5-5.1 [facility] Comment on above: Performed By: #### L [id number] ####[facility] ([facility])[address] [place] [address] Sodium [Moles/Vol] 138 mmol/L Normal 136-145 [facility] Comment on above: Performed By: #### L [id number] ####[facility] ([facility])[address] [place] [address] Urea nitrogen [Mass/Vol] 15 mg/dL Normal 7-25 [facility] Comment on above: Performed By: #### L [id number] ####[facility] [place] [address] UREA NITROGEN/CREATININE (MASS RATIO) IN SER/PLAS 26.8 Normal [facility] Comment on above: Performed By: #### L [id number] ####[facility] ([facility])[address] [place] [address] CBC WITH AUTO DIFFERENTIALon 06-23-2025 Basophils (Bld) [#/Vol] 0.02 10*3/uL Normal 0.00-0.20 [facility] Comment on above: Performed By: #### L [id number] ####[facility] ([facility])[address] [place] [address] Basophils/100 WBC (Bld) 0.4 % Normal 0.0-1.0 [facility] Comment on above: Performed By: #### L [id number] ####[facility] [place] [address] Eosinophils (Bld) [#/Vol] 0.23 10*3/uL Normal 0.00-0.50 [facility] Comment on above: Performed By: #### L [id number] ####[facility] [place] [address] Eosinophils/100 WBC (Bld) 4.9 % Normal 0.0-6.0 [facility] Comment on above: Performed By: #### L [id number] ####[facility] [place] [address] Erythrocyte distribution width (RBC) [Ratio] 15.9 % High 11.5-15.0 [facility] Comment on above: Performed By: #### L [id number] ####[facility] [place] [address] ERYTHROCYTE MEAN CORPUSCULAR HEMOGLOBIN CONCENTRATION (G/DL) BY AUTOMATED 32.8 g/dL Normal 32.0-35.0 [facility] Comment on above: Performed By: #### L [id number] ####[facility] [place] [address] Hematocrit (Bld) [Volume fraction] 28.7 % Low 36.0-50.0 [facility] Comment on above: Performed By: #### L [id number] ####[facility] ([facility])[address] [place] [address] Hemoglobin (Bld) [Mass/Vol] 9.4 g/dL Low 12.0-17.0 [facility] Comment on above: Performed By: #### L [id number] ####[facility] ([facility])[address] [place] [address] Immature granulocytes (Bld) [#/Vol] 0.03 10*3/uL Normal 0.00-0.20 [facility] Comment on above: Performed By: #### L [id number] ####[facility] ([facility])[address] [place] [address] Immature granulocytes/100 WBC (Bld) 0.6 % Normal 0.0-1.0 [facility] Comment on above: Performed By: #### L [id number] ####[facility] ([facility])[address] [place] [address] IMMATURE PLATELET FRACTION % 13.1 % High 0.8-6.3 [facility] Comment on above: Performed By: #### L [id number] ####[facility] ([facility])[address] [place] [address] Lymphocytes (Bld) [#/Vol] 0.73 10*3/uL Low 1.20-4.00 [facility] Comment on above: Performed By: #### L [id number] ####[facility] ([facility])[address] [place] [address] Lymphocytes/100 WBC (Bld) 15.6 % Low 20.0-45.0 [facility] Comment on above: Performed By: #### L [id number] ####[facility] ([facility])[address] [place] [address] MCH (RBC) [Entitic mass] 29.1 pg Normal 27.0-33.0 [facility] Comment on above: Performed By: #### L [id number] ####[facility] ([facility])[address] [place] [address] MCV (RBC) [Entitic vol] 88.9 fL Normal 82.0-98.0 [facility] Comment on above: Performed By: #### L [id number] ####[facility] ([facility])[address] [place] [address] Monocytes (Bld) [#/Vol] 0.43 10*3/uL Normal 0.10-1.00 [facility] Comment on above: Performed By: #### L [id number] ####[facility] ([facility])[address] [place] [address] Monocytes/100 WBC (Bld) 9.2 % Normal 5.0-12.0 [facility] Comment on above: Performed By: #### L [id number] ####[facility] ([facility])[address] [place] [address] Neutrophils (Bld) [#/Vol] 3.23 10*3/uL Normal 1.60-7.60 [facility] Comment on above: Performed By: #### L [id number] ####[facility] ([facility])[address] [place] [address] Neutrophils/100 WBC (Bld) 69.3 % Normal 40.0-72.0 [facility] Comment on above: Performed By: #### L [id number] ####[facility] ([facility])[address] [place] [address] NRBC (PER 100 WBCS) BY AUTOMATED COUNT 0.0 % Normal 0 [facility] Comment on above: Performed By: #### L [id number] ####[facility] ([facility])[address] [place] [address] PLATELETS (10*3/UL) IN BLOOD AUTOMATED COUNT 206 10*3/uL Normal 150-400 [facility] Comment on above: Performed By: #### L [id number] ####[facility] ([facility])[address] [place] [address] RBC (Bld) [#/Vol] 3.23 10*6/uL Low 3.80-5.70 [facility] Comment on above: Performed By: #### L [id number] ####[facility] ([facility])[address] [place] [address] WBC (Bld) [#/Vol] 4.67 10*3/uL Normal 4.00-10.60 [facility] Comment on above: Performed By: #### L [id number] ####[facility] ([facility])[address] [place] [address] CONSULTon 06-23-2025 CONSULT Normal [facility] MAGNESIUMon 06-23-2025 Magnesium [Mass/Vol] 1.9 mg/dL Normal 1.9-2.7 [facility] Comment on above: Performed By: #### L [id number] ####[facility] ([facility])[address] [place] [address] PHOSPHORUSon 06-23-2025 Magnesium [Mass/Vol] 2.6 mg/dL Normal 2.5-5.0 [facility] Comment on above: Performed By: #### L [id number] ####[facility] ([facility])[address] [place] [address] POCT GLUCOSE METER UNSOLICIT ED RESULTSon 06-23-2025 Glucose [Mass/Vol] 117 mg/dL High 70-105 [facility] Comment on above: Order Comment: Waive d Testing in the ED is performed under the ED CLIA certificate #[id number]. Result Comment: aall [email or web address] Performed By: #### L [id number] ####[facility] [place] [address] Glucose [Mass/Vol] 133 mg/dL High 70-105 [facility] Comment on above: Order Comment: Waive d Testing in the ED is performed under the ED CLIA certificate #[id number]. Result Comment: [email or web address] Performed By: #### L [id number] ####[facility] ([facility])[address] [place] [address] Glucose [Mass/Vol] 111 mg/dL High 70-105 [facility] Comment on above: Order Comment: Waive d Testing in the ED is performed under the ED CLIA certificate #[id number]. Result Comment: [email or web address] [id number] Value Noted Performed By: #### L [id number] ####[facility] ([facility])[address] [place] [address] Glucose [Mass/Vol] 95 mg/dL Normal 70-105 [facility] Comment on above: Order Comment: Waive d Testing in the ED is performed under the ED CLIA certificate #[id number]. Result Comment: [email or web address] [email or web address] Performed By: #### L [id number] ####[facility] ([facility])[address] [place] [address] URINALYSISon 06-23-2025 BILIRUBIN, TOTAL PRESENCE IN URINE Negative Normal Negative [facility] Comment on above: Performed By: #### L [id number] ####[facility] ([facility])[address] [place] [address] Clarity (U) Clear Normal Clear [facility] Comment on above: Performed By: #### L [id number] ####[facility] ([facility])[address] [place] [address] Color (U) Light-Yellow Normal Colorless, Yellow, Light-Cooper ow [facility] Comment on above: Performed By: #### L [id number] ####[facility] ([facility])[address] [place] [address] GLUCOSE (MG/DL) IN URINE Normal Normal Normal [facility] Comment on above: Performed By: #### L [id number] ####[facility] ([facility])[address] [place] [address] HEMOGLOBIN PRESENCE IN URINE Small Abnormal Negative [facility] Comment on above: Performed By: #### L [id number] ####[facility] ([facility])[address] [place] [address] Ketones Ql (U) Negative Normal Negative [facility] Comment on above: Performed By: #### L [id number] ####[facility] ([facility])[address] [place] [address] LEUKOCYTE ESTERASE PRESENCE IN URINE BY TEST STRIP Large Abnormal Negative [facility] Comment on above: Performed By: #### L [id number] ####[facility] ([facility])[address] [place] [address] NITRITE PRESENCE IN URINE Negative Normal Negative [facility] Comment on above: Performed By: #### L [id number] ####[facility] ([facility])[address] [place] [address] pH (U) 6.5 [pH] Normal 5.0-8.0 [facility] Comment on above: Performed By: #### L [id number] ####[facility] ([facility])[address] [place] [address] Protein (U) [Mass/Vol] Negative Normal [facility]: Performed By: #### L [id number] ####[facility] ([facility])[address] [place] [address] Specific gravity (U) [Rel density] 1.005 Low 1.010-1.03 0 [facility] Comment on above: Performed By: #### L [id number] ####[facility] [place] [address] UROBILINOGEN (MG/DL) IN URINE 2.0 mg/dL Abnormal Normal [facility] Comment on above: Performed By: #### L [id number] ####[facility] ([facility])[address] [place] [address] URINALYSIS MICROSCOPICon MUCUS (#/LPF) IN URINE SEDIMENT Occasional Normal None Seen, Occasional , Few [facility] Comment on above: Performed By: #### L [id number] ####[facility] [place] [address] RBC (#/HPF) IN URINE SEDIMENT 6-10 Abnormal None Seen, 0-2 [facility] Comment on above: Performed By: #### L [id number] ####[facility] ([facility])[address] [place] [address] SQUAMOUS EPITHELIAL CELLS (#/LPF) IN URINE SEDIMENT None Seen Normal None Seen, Occasional , Few [facility] Comment on above: Performed By: #### L [id number] ####[facility] ([facility])[address] [place] [address] WBC (LEUKOCYTE) (#/HPF) IN URINE SEDIMENT 11-20 Abnormal None Seen, 0-2 [facility] Comment on above: Performed By: #### L [id number] ####[facility] [place] [address] BASIC METABOLIC PANELon Anion gap [Moles/Vol] 7 mmol/L Normal 7-20 [facility] Comment on above: Performed By: #### L [id number] ####[facility] [place] [address] Calcium [Mass/Vol] 8.1 mg/dL Low 8.6-10.3 [facility] Comment on above: Performed By: #### L [id number] ####[facility] ([facility])[address] [place] [address] Chloride [Moles/Vol] 110 mmol/L High 98-107 [facility] Comment on above: Performed By: #### L [id number] ####[facility] [place] [address] CO2 [Moles/Vol] 24 mmol/L Normal 21-31 [facility] Comment on above: Performed By: #### L [id number] ####[facility] ([facility])[address] [place] [address] Creatinine [Mass/Vol] 0.55 mg/dL Low 0.60-1.30 [facility] Comment on above: Performed By: #### L [id number] ####[facility] ([facility])[address] [place] [address] GLOMERULAR FILTRATION RATE ML/MIN/1.73 SQ M.PREDICTED 101.0 mL/min/1.73m*2 Normal >60.0 [facility] Comment on above: Result Comment: The [facility]???s estimated glomerular filtration rate (eGFR) will no [...] of individuals. Performed By: #### L [id number] ####[facility] ([facility])[address] [place] [address] Glucose [Mass/Vol] 99 mg/dL Normal 70-100 [facility] Comment on above: Performed By: #### L [id number] ####[facility] ([facility])[address] [place] [address] Potassium [Moles/Vol] 3.2 mmol/L Low 3.5-5.1 [facility] Comment on above: Performed By: #### L [id number] ####[facility] [place] [address] Sodium [Moles/Vol] 138 mmol/L Normal 136-145 [facility] Comment on above: Performed By: #### L [id number] ####[facility] ([facility])[address] [place] [address] Urea nitrogen [Mass/Vol] 14 mg/dL Normal 7-25 [facility] Comment on above: Performed By: #### L [id number] ####[facility] [place] [address] UREA NITROGEN/CREATININE (MASS RATIO) IN SER/PLAS 25.5 Normal [facility] Comment on above: Performed By: #### L [id number] ####[facility] ([facility])[address] [place] [address] CBC WITH AUTO DIFFERENTIALon 06-22-2025 Basophils (Bld) [#/Vol] 0.01 10*3/uL Normal 0.00-0.20 [facility] Comment on above: Performed By: #### L [id number] ####[facility] ([facility])[address] [place] [address] Basophils/100 WBC (Bld) 0.3 % Normal 0.0-1.0 [facility] Comment on above: Performed By: #### L [id number] ####[facility] ([facility])[address] [place] [address] Eosinophils (Bld) [#/Vol] 0.20 10*3/uL Normal 0.00-0.50 [facility] Comment on above: Performed By: #### L [id number] ####[facility] ([facility])[address] [place] [address] Eosinophils/100 WBC (Bld) 5.1 % Normal 0.0-6.0 [facility] Comment on above: Performed By: #### L [id number] ####[facility] [place] [address] Erythrocyte distribution width (RBC) [Ratio] 15.7 % High 11.5-15.0 [facility] Comment on above: Performed By: #### L [id number] ####[facility] ([facility])[address] [place] [address] ERYTHROCYTE MEAN CORPUSCULAR HEMOGLOBIN CONCENTRATION (G/DL) BY AUTOMATED 32.7 g/dL Normal 32.0-35.0 [facility] Comment on above: Performed By: #### L [id number] ####[facility] ([facility])[address] [place] [address] Hematocrit (Bld) [Volume fraction] 26.0 % Low 36.0-50.0 [facility] Comment on above: Performed By: #### L [id number] ####[facility] ([facility])[address] [place] [address] Hemoglobin (Bld) [Mass/Vol] 8.5 g/dL Low 12.0-17.0 [facility] Comment on above: Performed By: #### L [id number] ####[facility] ([facility])[address] [place] [address] Immature granulocytes (Bld) [#/Vol] 0.02 10*3/uL Normal 0.00-0.20 [facility] Comment on above: Performed By: #### L [id number] ####[facility] ([facility])[address] [place] [address] Immature granulocytes/100 WBC (Bld) 0.5 % Normal 0.0-1.0 [facility] Comment on above: Performed By: #### L [id number] ####[facility] ([facility])[address] [place] [address] Lymphocytes (Bld) [#/Vol] 0.80 10*3/uL Low 1.20-4.00 [facility] Comment on above: Performed By: #### L [id number] ####[facility] ([facility])[address] [place] [address] Lymphocytes/100 WBC (Bld) 20.4 % Normal 20.0-45.0 [facility] Comment on above: Performed By: #### L [id number] ####[facility] ([facility])[address] [place] [address] MCH (RBC) [Entitic mass] 28.9 pg Normal 27.0-33.0 [facility] Comment on above: Performed By: #### L [id number] ####[facility] [place] [address] MCV (RBC) [Entitic vol] 88.4 fL Normal 82.0-98.0 [facility] Comment on above: Performed By: #### L [id number] ####[facility] ([facility])[address] [place] [address] Monocytes (Bld) [#/Vol] 0.44 10*3/uL Normal 0.10-1.00 [facility] Comment on above: Performed By: #### L [id number] ####[facility] ([facility])[address] [place] [address] Monocytes/100 WBC (Bld) 11.2 % Normal 5.0-12.0 [facility] Comment on above: Performed By: #### L [id number] ####[facility] ([facility])[address] [place] [address] Neutrophils (Bld) [#/Vol] 2.45 10*3/uL Normal 1.60-7.60 [facility] Comment on above: Performed By: #### L [id number] ####[facility] [place] [address] Neutrophils/100 WBC (Bld) 62.5 % Normal 40.0-72.0 [facility] Comment on above: Performed By: #### L [id number] ####[facility] [place] [address] NRBC (PER 100 WBCS) BY AUTOMATED COUNT 0.0 % Normal 0 [facility] Comment on above: Performed By: #### L [id number] ####[facility] ([facility])[address] [place] [address] PLATELETS (10*3/UL) IN BLOOD AUTOMATED COUNT 169 10*3/uL Normal 150-400 [facility] Comment on above: Performed By: #### L [id number] ####[facility] ([facility])[address] [place] [address] RBC (Bld) [#/Vol] 2.94 10*6/uL Low 3.80-5.70 [facility] Comment on above: Performed By: #### L [id number] ####[facility] [place] [address] WBC (Bld) [#/Vol] 3.92 10*3/uL Low 4.00-10.60 [facility] Comment on above: Performed By: #### L [id number] ####[facility] ([facility])[address] [place] [address] NURSNOTEon 06-22-2025 NURSNOTE [facility] PHOSPHORUSon 06-22-2025 Magnesium [Mass/Vol] 2.6 mg/dL Normal 2.5-5.0 [facility] Comment on above: Performed By: #### L [id number] ####[facility] ([facility])[address] [place] [address] POCT GLUCOSE METER UNSOLICIT ED RESULTSon 06-22-2025 Glucose [Mass/Vol] 129 mg/dL High 70-105 [facility] Comment on above: Order Comment: Waive d Testing in the ED is performed under the ED CLIA certificate #[id number]. Result Comment: [email or web address] [email or web address] Performed By: #### L [id number] ####[facility] ([facility])[address] [place] [address] Glucose [Mass/Vol] 98 mg/dL Normal 70-105 [facility] Comment on above: Order Comment: Waive d Testing in the ED is performed under the ED CLIA certificate #[id number]. Result Comment: [email or web address] [email or web address] Performed By: #### L [id number] ####[facility] ([facility])[address] [place] [address] Glucose [Mass/Vol] 122 mg/dL High 70-105 [facility] Comment on above: Order Comment: Waive d Testing in the ED is performed under the ED CLIA certificate #[id number]. Result Comment: tstr [email or web address] Performed By: #### L [id number] ####[facility] ([facility])[address] [place] [address] URINE CULTURE, ROUTINEon Cefepime [Susc] 4 ug/ml Susceptible [facility] Comment on above: Performed By: #### L [id number] ####[facility] ([facility])[address] [place] [address] Ciprofloxacin [Susc] 0.5 ug/ml Susceptible [facility] Comment on above: Performed By: #### L [id number] ####[facility] ([facility])[address] [place] [address] levoFLOXacin [Susc] 1 ug/ml Susceptible [facility] Comment on above: Performed By: #### L [id number] ####[facility] ([facility])[address] [place] [address] Meropenem [Susc] 1 ug/ml Susceptible [facility] Comment on above: Performed By: #### L [id number] ####[facility] ([facility])[address] [place] [address] Piperacillin+Tazobacta m [Susc] 8/4 Susceptible [facility] Comment on above: Performed By: #### L [id number] ####[facility] ([facility])[address] [place] [address] Tobramycin [Susc] <=2 Susceptible [facility] Comment on above: Performed By: #### L [id number] ####[facility] ([facility])[address] [place] [address] 30on 06-21-2025 30 Normal [facility] BASIC METABOLIC PANELon 09-0 Anion gap [Moles/Vol] 11 mmol/L Normal 7-20 [facility] Comment on above: Performed By: #### L [id number] ####[facility] ([facility])[address] [place] [address] Calcium [Mass/Vol] 7.9 mg/dL Low 8.6-10.3 [facility] Comment on above: Performed By: #### L [id number] ####[facility] ([facility])[address] [place] [address] Chloride [Moles/Vol] 110 mmol/L High 98-107 [facility] Comment on above: Performed By: #### L [id number] ####[facility] [place] [address] CO2 [Moles/Vol] 21 mmol/L Normal 21-31 [facility] Comment on above: Performed By: #### L [id number] ####[facility] ([facility])[address] [place] [address] Creatinine [Mass/Vol] 0.56 mg/dL Low 0.60-1.30 [facility] Comment on above: Performed By: #### L [id number] ####[facility] ([facility])[address] [place] [address] GLOMERULAR FILTRATION RATE ML/MIN/1.73 SQ M.PREDICTED 100.6 mL/min/1.73m*2 Normal >60.0 [facility] Comment on above: Result Comment: The [facility]???s estimated glomerular filtration rate (eGFR) will no [...] of individuals. Performed By: #### L [id number] ####[facility] [place] [address] Glucose [Mass/Vol] 126 mg/dL High 70-100 [facility] Comment on above: Performed By: #### L [id number] ####[facility] ([facility] [place] [address] Potassium [Moles/Vol] 3.6 mmol/L Normal 3.5-5.1 [facility] Comment on above: Performed By: #### L [id number] ####[facility] ([facility] [place] [address] Performed By: #### L [id number] ####[facility] ([facility])[address] [place] [address] Sodium [Moles/Vol] 138 mmol/L Normal 136-145 [facility] Comment on above: Performed By: #### L [id number] ####[facility] ([facility] [place] [address] Urea nitrogen [Mass/Vol] 10 mg/dL Normal 7-25 [facility] Comment on above: Performed By: #### L [id number] ####[facility] ([facility])[address] [place] [address] UREA NITROGEN/CREATININE (MASS RATIO) IN SER/PLAS 17.9 Normal [facility] Comment on above: Performed By: #### L [id number] ####[facility] ([facility])[address] [place] [address] Anion gap [Moles/Vol] 11 mmol/L Normal 7-20 [facility] Comment on above: Performed By: #### L [id number] ####[facility] ([facility])[address] [place] [address] Calcium [Mass/Vol] 7.9 mg/dL Low 8.6-10.3 [facility] Comment on above: Performed By: #### L [id number] ####[facility] ([facility])[address] [place] [address] Chloride [Moles/Vol] 110 mmol/L High 98-107 [facility] Comment on above: Performed By: #### L [id number] ####[facility] ([facility])[address] [place] [address] CO2 [Moles/Vol] 20 mmol/L Low 21-31 [facility] Comment on above: Performed By: #### L [id number] ####[facility] ([facility] [place] [address] Creatinine [Mass/Vol] 0.53 mg/dL Low 0.60-1.30 [facility] Comment on above: Performed By: #### L [id number] ####[facility] ([facility])[address] [place] [address] GLOMERULAR FILTRATION RATE ML/MIN/1.73 SQ M.PREDICTED 101.9 mL/min/1.73m*2 Normal >60.0 [facility] Comment on above: Result Comment: The [facility]???s estimated glomerular filtration rate (eGFR) will no [...] of individuals. Performed By: #### L [id number] ####[facility] ([facility] [place] [address] Glucose [Mass/Vol] 119 mg/dL High 70-100 [facility] Comment on above: Performed By: #### L [id number] ####[facility] ([facility] [place] [address] Potassium [Moles/Vol] 3.1 mmol/L Low 3.5-5.1 [facility] Comment on above: Performed By: #### L [id number] ####[facility] ([facility] [place] [address] Sodium [Moles/Vol] 138 mmol/L Normal 136-145 [facility] Comment on above: Performed By: #### L [id number] ####[facility] ([facility] [place] [address] Urea nitrogen [Mass/Vol] 9 mg/dL Normal 7-25 [facility] Comment on above: Performed By: #### L [id number] ####[facility] ([facility])[address] [place] [address] UREA NITROGEN/CREATININE (MASS RATIO) IN SER/PLAS 17.0 Normal [facility] Comment on above: Performed By: #### L [id number] ####[facility] ([facility])[address] [place] [address] CBC WITH AUTO DIFFERENTIALon 06-21-2025 Basophils (Bld) [#/Vol] 0.02 10*3/uL Normal 0.00-0.20 [facility] Comment on above: Performed By: #### L [id number] ####[facility] ([facility])[address] [place] [address] Basophils/100 WBC (Bld) 0.4 % Normal 0.0-1.0 [facility] Comment on above: Performed By: #### L [id number] ####[facility] ([facility])[address] [place] [address] Eosinophils (Bld) [#/Vol] 0.20 10*3/uL Normal 0.00-0.50 [facility] Comment on above: Performed By: #### L [id number] ####[facility] ([facility])[address] [place] [address] Eosinophils/100 WBC (Bld) 3.7 % Normal 0.0-6.0 [facility] Comment on above: Performed By: #### L [id number] ####[facility] ([facility] [place] [address] Erythrocyte distribution width (RBC) [Ratio] 15.5 % High 11.5-15.0 [facility] Comment on above: Performed By: #### L [id number] ####[facility] ([facility])[address] [place] [address] ERYTHROCYTE MEAN CORPUSCULAR HEMOGLOBIN CONCENTRATION (G/DL) BY AUTOMATED 33.7 g/dL Normal 32.0-35.0 [facility] Comment on above: Performed By: #### L [id number] ####[facility] ([facility] [place] [address] Hematocrit (Bld) [Volume fraction] 28.2 % Low 36.0-50.0 [facility] Comment on above: Performed By: #### L [id number] ####[facility] ([facility])[address] [place] [address] Hemoglobin (Bld) [Mass/Vol] 9.5 g/dL Low 12.0-17.0 [facility] Comment on above: Performed By: #### L [id number] ####[facility] ([facility] [place] [address] Immature granulocytes (Bld) [#/Vol] 0.03 10*3/uL Normal 0.00-0.20 [facility] Comment on above: Performed By: #### L [id number] ####[facility] ([facility])[address] [place] [address] Immature granulocytes/100 WBC (Bld) 0.6 % Normal 0.0-1.0 [facility] Comment on above: Performed By: #### L [id number] ####[facility] ([facility])[address] [place] [address] Lymphocytes (Bld) [#/Vol] 0.82 10*3/uL Low 1.20-4.00 [facility] Comment on above: Performed By: #### L [id number] ####[facility] ([facility])[address] [place] [address] Lymphocytes/100 WBC (Bld) 15.3 % Low 20.0-45.0 [facility] Comment on above: Performed By: #### L [id number] ####[facility] ([facility])[address] [place] [address] MCH (RBC) [Entitic mass] 29.2 pg Normal 27.0-33.0 [facility] Comment on above: Performed By: #### L [id number] ####[facility] ([facility])[address] [place] [address] MCV (RBC) [Entitic vol] 86.8 fL Normal 82.0-98.0 [facility] Comment on above: Performed By: #### L [id number] ####[facility] ([facility])[address] [place] [address] Monocytes (Bld) [#/Vol] 0.51 10*3/uL Normal 0.10-1.00 [facility] Comment on above: Performed By: #### L [id number] ####[facility] ([facility] [place] [address] Monocytes/100 WBC (Bld) 9.5 % Normal 5.0-12.0 [facility] Comment on above: Performed By: #### L [id number] ####[facility] ([facility])[address] [place] [address] Neutrophils (Bld) [#/Vol] 3.77 10*3/uL Normal 1.60-7.60 [facility] Comment on above: Performed By: #### L [id number] ####[facility] ([facility])[address] [place] [address] Neutrophils/100 WBC (Bld) 70.5 % Normal 40.0-72.0 [facility] Comment on above: Performed By: #### L [id number] ####[facility] ([facility])[address] [place] [address] NRBC (PER 100 WBCS) BY AUTOMATED COUNT 0.0 % Normal 0 [facility] Comment on above: Performed By: #### L [id number] ####[facility] ([facility])[address] [place] [address] PLATELETS (10*3/UL) IN BLOOD AUTOMATED COUNT 164 10*3/uL Normal 150-400 [facility] Comment on above: Performed By: #### L [id number] ####[facility] ([facility])[address] [place] [address] RBC (Bld) [#/Vol] 3.25 10*6/uL Low 3.80-5.70 [facility] Comment on above: Performed By: #### L [id number] ####[facility] ([facility])[address] [place] [address] WBC (Bld) [#/Vol] 5.35 10*3/uL Normal 4.00-10.60 [facility] Comment on above: Performed By: #### L [id number] ####[facility] ([facility])[address] [place] [address] CONSULTon 06-21-2025 CONSULT Normal [facility] CONSULT Normal [facility] MAGNESIUMon 06-21-2025 Magnesium [Mass/Vol] 2.0 mg/dL Normal 1.9-2.7 [facility] Comment on above: Performed By: #### L [id number] ####[facility] ([facility])[address] [place] [address] PHOSPHORUSon 06-21-2025 Magnesium [Mass/Vol] 1.4 mg/dL Low 2.5-5.0 [facility] Comment on above: Performed By: #### L [id number] ####[facility] ([facility])[address] [place] [address] POCT GLUCOSE METER UNSOLICIT ED RESULTSon 06-21-2025 Glucose [Mass/Vol] 119 mg/dL High 70-105 [facility] Comment on above: Order Comment: Waive d Testing in the ED is performed under the ED CLIA certificate #[id number]. Result Comment: [email or web address] Performed By: #### L [id number] ####[facility] ([facility])[address] [place] [address] Glucose [Mass/Vol] 127 mg/dL High 70-105 [facility] Comment on above: Order Comment: Waive d Testing in the ED is performed under the ED CLIA certificate #[id number]. Result Comment: [email or web address] oux Performed By: #### L [id number] ####[facility] ([facility])[address] [place] [address] Glucose [Mass/Vol] 136 mg/dL High 70-105 [facility] Comment on above: Order Comment: Waive d Testing in the ED is performed under the ED CLIA certificate #[id number]. Result Comment: [email or web address] Performed By: #### L [id number] ####[facility] ([facility])[address] [place] [address] Glucose [Mass/Vol] 110 mg/dL High 70-105 [facility] Comment on above: Order Comment: Waive d Testing in the ED is performed under the ED CLIA certificate #[id number]. Result Comment: [email or web address] es Performed By: #### L [id number] ####[facility] ([employer] [place] [address] BASIC METABOLIC PANELon 09-0 -2024 Anion gap [Moles/Vol] 9 mmol/L Normal 7-20 [facility] Comment on above: Performed By: #### L [id number] ####[facility] ([facility] [employer])[address] [place] [address] Calcium [Mass/Vol] 8.0 mg/dL Low 8.6-10.3 [facility] Comment on above: Performed By: #### L [id number] ####[facility] ([facility])[address] [place] [address] Chloride [Moles/Vol] 110 mmol/L High 98-107 [facility] Comment on above: Performed By: #### L [id number] ####[facility] ([facility] [employer])[address] [place] [address] CO2 [Moles/Vol] 23 mmol/L Normal 21-31 [facility] Comment on above: Performed By: #### L [id number] ####[facility] ([facility])[address] [place] [place] [address] Creatinine [Mass/Vol] 0.58 mg/dL Low 0.60-1.30 [facility] Comment on above: Performed By: #### L [id number] ####[facility] ([facility])[address] [place] [address] GLOMERULAR FILTRATION RATE ML/MIN/1.73 SQ M.PREDICTED 99.7 mL/min/1.73m*2 Normal >60.0 [facility] Comment on above: Result Comment: The [facility]???s estimated glomerular filtration rate (eGFR) will no [...] of individuals. Performed By: #### L [id number] ####[facility] ([facility])[address] [place] [address] Glucose [Mass/Vol] 112 mg/dL High 70-100 [facility] Comment on above: Performed By: #### L [id number] ####[facility] ([facility])[address] [place] [address] Potassium [Moles/Vol] 2.9 mmol/L Invalid Interpretation Code 3.5-5.1 [facility] Comment on above: Performed By: #### L [id number] ####[facility] ([facility])[address] [place] [address] Sodium [Moles/Vol] 139 mmol/L Normal 136-145 [facility] Comment on above: Performed By: #### L [id number] ####[facility] ([facility])[address] [place] [address] Urea nitrogen [Mass/Vol] 12 mg/dL Normal 7-25 [facility] Comment on above: Performed By: #### L [id number] ####[facility] ([facility])[address] [place] [address] UREA NITROGEN/CREATININE (MASS RATIO) IN SER/PLAS 20.7 Normal [facility] Comment on above: Performed By: #### L [id number] ####[facility] ([facility])[address] [place] [address] Anion gap [Moles/Vol] 9 mmol/L Normal 7-20 [facility] Comment on above: Performed By: #### L [id number] ####[facility] ([facility])[address] [place] [address] Calcium [Mass/Vol] 7.9 mg/dL Low 8.6-10.3 [facility] Comment on above: Performed By: #### L [id number] ####[facility] ([facility])[address] [place] [address] Chloride [Moles/Vol] 109 mmol/L High 98-107 [facility] Comment on above: Performed By: #### L [id number] ####[facility] ([facility])[address] [place] [address] CO2 [Moles/Vol] 23 mmol/L Normal 21-31 [facility] Comment on above: Performed By: #### L [id number] ####[facility] ([facility])[address] [place] [address] Creatinine [Mass/Vol] 0.57 mg/dL Low 0.60-1.30 [facility] Comment on above: Performed By: #### L [id number] ####[facility] ([facility])[address] [place] [address] GLOMERULAR FILTRATION RATE ML/MIN/1.73 SQ M.PREDICTED 100.2 mL/min/1.73m*2 Normal >60.0 [facility] Comment on above: Result Comment: [facility]???s estimated glomerular filtration rate (eGFR) will no [...] of individuals. Performed By: #### L [id number] ####[facility] ([facility])[address] [place] [address] Glucose [Mass/Vol] 108 mg/dL High 70-100 [facility] Comment on above: Performed By: #### L [id number] ####[facility] ([facility])[address] [place] [address] Potassium [Moles/Vol] 2.9 mmol/L Invalid Interpretation Code 3.5-5.1 [facility] Comment on above: Performed By: #### L [id number] ####[facility] ([facility])[address] [place] [address] Sodium [Moles/Vol] 138 mmol/L Normal 136-145 [facility] Comment on above: Performed By: #### L [id number] ####[facility] ([facility])[address] [place] [address] Urea nitrogen [Mass/Vol] 13 mg/dL Normal 7-25 [facility] Comment on above: Performed By: #### L [id number] ####[facility] ([facility])[address] [place] [address] UREA NITROGEN/CREATININE (MASS RATIO) IN SER/PLAS 22.8 Normal [facility] Comment on above: Performed By: #### L [id number] ####[facility] ([facility])[address] [place] [address] CBCon 06-20-2025 Erythrocyte distribution width (RBC) [Ratio] 15.7 % High 11.5-15.0 [facility] Comment on above: Performed By: #### L [id number] ####[facility] ([facility])[address] [place] [address] ERYTHROCYTE MEAN CORPUSCULAR HEMOGLOBIN CONCENTRATION (G/DL) BY AUTOMATED 33.7 g/dL Normal 32.0-35.0 [facility] Comment on above: Performed By: #### L [id number] ####[facility] ([facility])[address] [place] [address] Hematocrit (Bld) [Volume fraction] 27.9 % Low 36.0-50.0 [facility] Comment on above: Performed By: #### L [id number] ####[facility] ([facility])[address] [place] [address] Hemoglobin (Bld) [Mass/Vol] 9.4 g/dL Low 12.0-17.0 [facility] Comment on above: Performed By: #### L [id number] ####[facility] ([facility])[address] [place] [address] IMMATURE PLATELET FRACTION % 13.0 % High 0.8-6.3 [facility] Comment on above: Performed By: #### L [id number] ####[facility] ([facility])[address] [place] [address] MCH (RBC) [Entitic mass] 28.8 pg Normal 27.0-33.0 [facility] Comment on above: Performed By: #### L [id number] ####[facility] ([facility])[address] [place] [address] MCV (RBC) [Entitic vol] 85.6 fL Normal 82.0-98.0 [facility] Comment on above: Performed By: #### L [id number] ####[facility] [place] [address] PLATELETS (10*3/UL) IN BLOOD AUTOMATED COUNT 155 10*3/uL Normal 150-400 [facility] Comment on above: Performed By: #### L [id number] ####[facility] ([facility])[address] [place] [address] RBC (Bld) [#/Vol] 3.26 10*6/uL Low 3.80-5.70 [facility] Comment on above: Performed By: #### L [id number] ####[facility] ([facility])[address] [place] [address] WBC (Bld) [#/Vol] 5.71 10*3/uL Normal 4.00-10.60 [facility] Comment on above: Performed By: #### L [id number] ####[facility] ([facility])[address] [place] [address] CT ABDOMEN PELVIS WO IV CONT RASTon 06-20-2025 CT ABDOMEN PELVIS WO IV CONTRAST Invalid Interpretation Code [facility] HEMOGLOBIN AND HEMATOCRIT, B LOODon 06-20-2025 Hematocrit (Bld) [Volume fraction] 26.8 % Low 36.0-50.0 [facility] Comment on above: Performed By: #### L [id number] ####[facility] [place] [address] Hemoglobin (Bld) [Mass/Vol] 9.2 g/dL Low 12.0-17.0 [facility] Comment on above: Performed By: #### L [id number] ####[facility] ([facility])[address] [place] [address] MAGNESIUMon 06-20-2025 Magnesium [Mass/Vol] 2.2 mg/dL Normal 1.9-2.7 [facility] Comment on above: Performed By: #### L [id number] ####[facility] ([facility])[address] [place] [address] Magnesium [Mass/Vol] 1.8 mg/dL Low 1.9-2.7 [facility] Comment on above: Performed By: #### L [id number] ####[facility] ([facility])[address] [place] [address] POCT GLUCOSE METER UNSOLICIT ED RESULTSon 06-20-2025 Glucose [Mass/Vol] 127 mg/dL High 70-105 [facility] Comment on above: Order Comment: Waive d Testing in the ED is performed under the ED CLIA certificate #[id number]. Result Comment: [email or web address] er Performed By: #### L [id number] ####[facility] ([employer])[address] [place] [address] Glucose [Mass/Vol] 124 mg/dL High 70-105 [facility] Comment on above: Order Comment: Waive d Testing in the ED is performed under the ED CLIA certificate #[id number]. Result Comment: vincent es Performed By: #### L [id number] ####[facility] ([employer])[address] [place] [address] Glucose [Mass/Vol] 130 mg/dL High 70-105 [facility] Comment on above: Order Comment: Waive d Testing in the ED is performed under the ED CLIA certificate #[id number]. Result Comment: vincent es Performed By: #### L [id number] ####[facility] ([employer])[address] [place] [address] Glucose [Mass/Vol] 118 mg/dL High 70-105 [facility] Comment on above: Order Comment: Waive d Testing in the ED is performed under the ED CLIA certificate #[id number]. Result Comment: [email or web address] Performed By: #### L [id number] ####[facility] ([employer])[address] [place] [address] Glucose [Mass/Vol] 108 mg/dL High 70-105 [facility] Comment on above: Order Comment: Waive d Testing in the ED is performed under the ED CLIA certificate #[id number]. Result Comment: [email or web address] Performed By: #### L [id number] ####[facility] ([employer])[address] [place] [address] POTASSIUMon 06-20-2025 Potassium [Moles/Vol] 3.3 mmol/L Low 3.5-5.1 [facility] Comment on above: Performed By: #### L [id number] ####[facility] ([facility])[address] [place] [address] BASIC METABOLIC PANELon 09-0 Anion gap [Moles/Vol] 9 mmol/L Normal 7-20 [facility] Comment on above: Performed By: #### L [id number] ####[facility] ([facility])[address] [place] [address] Calcium [Mass/Vol] 7.8 mg/dL Low 8.6-10.3 [facility] Comment on above: Performed By: #### L [id number] ####[facility] ([facility])[address] [place] [address] Chloride [Moles/Vol] 110 mmol/L High 98-107 [facility] Comment on above: Performed By: #### L [id number] ####[facility] ([facility])[address] [place] [address] CO2 [Moles/Vol] 23 mmol/L Normal 21-31 [facility] Comment on above: Performed By: #### L [id number] ####[facility] [facility] ([facility])[address] [place] [address] Creatinine [Mass/Vol] 0.63 mg/dL Normal 0.60-1.30 [facility] Comment on above: Performed By: #### L [id number] ####[facility] ([facility])[address] [place] [address] GLOMERULAR FILTRATION RATE ML/MIN/1.73 SQ M.PREDICTED 97.8 mL/min/1.73m*2 Normal >60.0 [facility] Comment on above: Result Comment: The [facility]???s estimated glomerular filtration rate (eGFR) will no [...] of individuals. Performed By: #### L [id number] ####[facility] ([facility])[address] [place] [address] Glucose [Mass/Vol] 113 mg/dL High 70-100 [facility] Comment on above: Performed By: #### L [id number] ####[facility] ([facility])[address] [place] [address] Potassium [Moles/Vol] 2.8 mmol/L Invalid Interpretation Code 3.5-5.1 [facility] Comment on above: Performed By: #### L [id number] ####[facility] ([facility])[address] [place] [address] Sodium [Moles/Vol] 139 mmol/L Normal 136-145 [facility] Comment on above: Performed By: #### L [id number] ####[facility] ([facility])[address] [place] [address] Urea nitrogen [Mass/Vol] 15 mg/dL Normal 7-25 [facility] Comment on above: Performed By: #### L [id number] ####[facility] ([facility])[address] [place] [address] UREA NITROGEN/CREATININE (MASS RATIO) IN SER/PLAS 23.8 Normal [facility] Comment on above: Performed By: #### L [id number] ####[facility] ([facility])[address] [place] [address] Anion gap [Moles/Vol] 9 mmol/L Normal 7-20 [facility] Comment on above: Performed By: #### L [id number] ####[facility] ([facility])[address] [place] [address] Calcium [Mass/Vol] 7.9 mg/dL Low 8.6-10.3 [facility] Comment on above: Performed By: #### L [id number] ####[facility] [place] [address] Chloride [Moles/Vol] 112 mmol/L High 98-107 [facility] Comment on above: Performed By: #### L [id number] ####[facility] ([facility])[address] [place] [address] CO2 [Moles/Vol] 25 mmol/L Normal 21-31 [facility] Comment on above: Performed By: #### L [id number] ####[facility] ([facility])[address] [place] [address] Creatinine [Mass/Vol] 0.83 mg/dL Normal 0.60-1.30 [facility] Comment on above: Performed By: #### L [id number] ####[facility] ([facility])[address] [place] [address] GLOMERULAR FILTRATION RATE ML/MIN/1.73 SQ M.PREDICTED 77.7 mL/min/1.73m*2 Normal >60.0 [facility] Comment on above: Result Comment: The [facility]???s estimated glomerular filtration rate (eGFR) will no [...] of individuals. Performed By: #### L [id number] ####[facility] [place] [address] Glucose [Mass/Vol] 107 mg/dL High 70-100 [facility] Comment on above: Performed By: #### L [id number] ####[facility] [place] [address] Potassium [Moles/Vol] 2.8 mmol/L Invalid Interpretation Code 3.5-5.1 [facility] Comment on above: Performed By: #### L [id number] ####[facility] [place] [address] Sodium [Moles/Vol] 143 mmol/L Normal 136-145 [facility] Comment on above: Performed By: #### L [id number] ####[facility] [place], [place] [address] Urea nitrogen [Mass/Vol] 22 mg/dL Normal 7-25 [facility] Comment on above: Performed By: #### L [id number] ####[facility] ([facility])[address] [place] [address] UREA NITROGEN/CREATININE (MASS RATIO) IN SER/PLAS 26.5 Normal [facility] Comment on above: Performed By: #### L [id number] ####[facility] ([facility])[address] [place] [address] CBCon 06-19-2025 Erythrocyte distribution width (RBC) [Ratio] 15.7 % High 11.5-15.0 [facility] Comment on above: Performed By: #### L [id number] ####[facility] [address] ERYTHROCYTE MEAN CORPUSCULAR HEMOGLOBIN CONCENTRATION (G/DL) BY AUTOMATED 32.9 g/dL Normal 32.0-35.0 [facility] Comment on above: Performed By: #### L [id number] ####[facility] [place] [address] Hematocrit (Bld) [Volume fraction] 24.0 % Low 36.0-50.0 [facility] Comment on above: Performed By: #### L [id number] ####[facility] ([facility])[address] [place] [address] Hemoglobin (Bld) [Mass/Vol] 7.9 g/dL Low 12.0-17.0 [facility] Comment on above: Performed By: #### L [id number] ####[facility] ([facility])[address] [place] [address] IMMATURE PLATELET FRACTION % 11.2 % High 0.8-6.3 [facility] Comment on above: Performed By: #### L [id number] ####[facility] ([facility])[address] [place] [address] MCH (RBC) [Entitic mass] 29.0 pg Normal 27.0-33.0 [facility] Comment on above: Performed By: #### L [id number] ####[facility] ([facility])[address] [place] [address] MCV (RBC) [Entitic vol] 88.2 fL Normal 82.0-98.0 [facility] Comment on above: Performed By: #### L [id number] ####[facility] ([facility])[address] [place] [address] PLATELETS (10*3/UL) IN BLOOD AUTOMATED COUNT 130 10*3/uL Low 150-400 [facility] Comment on above: Performed By: #### L [id number] ####[facility] ([facility])[address] [place] [address] RBC (Bld) [#/Vol] 2.72 10*6/uL Low 3.80-5.70 [facility] Comment on above: Performed By: #### L [id number] ####[facility] ([facility])[address] [place] [address] WBC (Bld) [#/Vol] 6.34 10*3/uL Normal 4.00-10.60 [facility] Comment on above: Performed By: #### L [id number] ####[facility] ([facility])[address] [place] [address] CONSULTon 06-19-2025 CONSULT Normal [facility] [place] UPPER GI WITH KUBon 06-19 [place] UPPER GI WITH KUB Normal [facility] HEMOGLOBIN AND HEMATOCRIT, B LOODon 06-19-2025 Hematocrit (Bld) [Volume fraction] 26.6 % Low 36.0-50.0 [facility] Comment on above: Performed By: #### L [id number] ####[facility] ([facility])[address] [place] [address] Hemoglobin (Bld) [Mass/Vol] 8.9 g/dL Low 12.0-17.0 [facility] Comment on above: Performed By: #### L [id number] ####[facility] ([facility])[address] [place] [address] MAGNESIUMon 06-19-2025 Magnesium [Mass/Vol] 2.0 mg/dL Normal 1.9-2.7 [facility] Comment on above: Performed By: #### L [id number] ####[facility] ([facility])[address] [place] [address] NURSNOTEon 06-19-2025 NURSNOTE Normal [facility] PHOSPHORUSon 06-19-2025 Magnesium [Mass/Vol] 1.7 mg/dL Low 2.5-5.0 [facility] Comment on above: Performed By: #### L [id number] ####[facility] ([facility])[address] [place] [address] POCT GLUCOSE METER UNSOLICIT ED RESULTSon 06-19-2025 Glucose [Mass/Vol] 100 mg/dL Normal 70-105 [facility] Comment on above: Order Comment: Waive d Testing in the ED is performed under the ED CLIA certificate #[id number]. Result Comment: tcep [email or web address] Performed By: #### L [id number] ####[facility] ([facility])[address] [place] [address] Glucose [Mass/Vol] 81 mg/dL Normal 70-105 [facility] Comment on above: Order Comment: Waive d Testing in the ED is performed under the ED CLIA certificate #[id number]. Result Comment: tcep [email or web address] Performed By: #### L [id number] ####[facility] ([facility])[address] [place] [address] TRIGLYCERIDESon 06-19-2025 FASTING? unknown Normal [facility] Comment on above: Order Comment: Monit or triglycerides while patient is on propofol. Consult Nutrition if greater than 500 mg/dL. Performed By: #### L [id number] ####[facility] ([facility])[address] [place] [address] Magnesium [Mass/Vol] 115 mg/dL Normal <150 [facility] Comment on above: Order Comment: Monit or triglycerides while patient is on propofol. Consult Nutrition if greater than 500 mg/dL. Performed By: #### L [id number] ####[facility] ([facility])[address] [place] [address] TYPE AND SCREENon 06-19-2025 AB SCREEN Negative Normal [facility] Comment on above: Performed By: #### L [id number] ####[facility], ABO group Nom (Bld) A Normal [facility] Comment on above: Performed By: #### L [id number] ####[facility], RH TYPE IN BLOOD Negative Normal [facility] Comment on above: Performed By: #### L [id number] ####[facility], ABG UNSOLICITED RESULTSon A-ADO2 Normal [facility] Comment on above: Result Comment: C^In calculable Performed By: #### L [id number] ####[facility] [id number] [place] [address] [facility] Base excess Calc (Bld) [Moles/Vol] 1.3 mmol/L Normal -2.0-3.0 [facility] Comment on above: Performed By: #### L [id number] ####[facility] [id number] [place] [address] [facility] CO2 (Bld) [Partial pressure] 36 mm[Hg] Normal 35-45 [facility] Comment on above: Performed By: #### L [id number] ####[facility] [id number] [place] [address] [place] HCO3 (Bld) [Moles/Vol] 25.0 mmol/L Normal 21.0-28.0 [facility] Comment on above: Performed By: #### L [id number] ####[facility] [id number] [place] [address] [facility] Oxygen (Bld) [Partial pressure] 82 mm[Hg] Low 83-108 [facility] Comment on above: Performed By: #### L [id number] ####[facility] [id number] [place] [address] [facility] OXYGEN LITERS PER MINUTE (LPM) IN BLOOD 1.0 LPM Normal [facility] Comment on above: Performed By: #### L [id number] ####[facility] [id number] [place] [address] [facility] OXYGEN SATURATION (%) IN ARTERIAL BLOOD 98.7 % Normal 94.0-100.0 [facility] Comment on above: Performed By: #### L [id number] ####[facility] [id number] [place] [address] [facility] OXYGENATED HEMOGLOBIN IN ARTERIAL BLOOD 96.6 % Normal 94.0-97.0 [facility] Comment on above: Performed By: #### L [id number] ####[facility] [id number] [place] [address] [facility] PAO2/PAO2 Normal [facility] Comment on above: Result Comment: C^In calculable Performed By: #### L [id number] ####[facility] [id number] [place] [address] [facility] PF RATIO Normal [facility] Comment on above: Result Comment: C^In calculable Performed By: #### L [id number] ####[facility] [id number] [place] [address] [facility] PH OF ARTERIAL BLOOD 7.45 Normal 7.35-7.45 [facility] Comment on above: Performed By: #### L [id number] ####[facility] [id number] [place] [address] [place] TEMPERATURE 37.0 ???C Normal [facility] Comment on above: Performed By: #### L [id number] ####[facility] [id number] [place] [address] [place] ANESon 06-18-2024 ANES Normal [facility] BASIC METABOLIC PANELon 08- Anion gap [Moles/Vol] 9 mmol/L Normal 7-20 [facility] Comment on above: Performed By: #### L [id number] ####[facility])[address] [place] [address] Calcium [Mass/Vol] 7.8 mg/dL Low 8.6-10.3 [facility] Comment on above: Performed By: #### L [id number] ####[facility] ([facility])[address] [place] [address] Chloride [Moles/Vol] 117 mmol/L High 98-107 [facility] Comment on above: Performed By: #### L [id number] ####[facility])[address] [place] [address] CO2 [Moles/Vol] 22 mmol/L Normal 21- [facility] Comment on above: Performed By: #### L [id number] ####[facility] ([facility])[address] [place] [address] Creatinine [Mass/Vol] 0.80 mg/dL Normal 0.60-1.30 [facility] Comment on above: Performed By: #### L [id number] ####[facility] ([facility])[address] [place] [address] GLOMERULAR FILTRATION RATE ML/MIN/1.73 SQ M.PREDICTED 81.2 mL/min/1.73m*2 Normal >60.0 [facility] Comment on above: Result Comment: [facility]???s estimated glomerular filtration rate (eGFR) will no [...] of individuals. Performed By: #### L [id number] ####[facility] ([facility])[address] [place] [address] Glucose [Mass/Vol] 137 mg/dL High 70-100 [facility] Comment on above: Performed By: #### L [id number] ####[facility] ([facility])[address] [place] [address] Potassium [Moles/Vol] 3.3 mmol/L Low 3.5-5.1 [facility] Comment on above: Performed By: #### L [id number] ####[facility] ([facility])[address] [place] [address] Sodium [Moles/Vol] 145 mmol/L Normal 136-145 [facility] Comment on above: Performed By: #### L [id number] ####[facility] [place] [address] Urea nitrogen [Mass/Vol] 30 mg/dL High 7-25 [facility] Comment on above: Performed By: #### L [id number] ####[facility] ([facility])[address] [place] [address] UREA NITROGEN/CREATININE (MASS RATIO) IN SER/PLAS 37.5 Normal [facility] Comment on above: Performed By: #### L [id number] ####[facility] ([facility])[address] [place] [address] Anion gap [Moles/Vol] 8 mmol/L Normal 7-20 [facility] Comment on above: Performed By: #### L [id number] ####[facility] ([facility])[address] [place] [address] Calcium [Mass/Vol] 7.8 mg/dL Low 8.6-10.3 [facility] Comment on above: Performed By: #### L [id number] ####[facility] ([facility])[address] [place] [address] Chloride [Moles/Vol] 117 mmol/L High 98-107 [facility] Comment on above: Performed By: #### L [id number] ####[facility] ([facility])[address] [place] [address] CO2 [Moles/Vol] 22 mmol/L Normal 21-31 [facility] Comment on above: Performed By: #### L [id number] ####[facility] ([facility])[address] [place] [address] Creatinine [Mass/Vol] 0.86 mg/dL Normal 0.60-1.30 [facility] Comment on above: Performed By: #### L [id number] ####[facility] ([facility])[address] [place] [address] GLOMERULAR FILTRATION RATE ML/MIN/1.73 SQ M.PREDICTED 74.5 mL/min/1.73m*2 Normal >60.0 [facility] Comment on above: Result Comment: [facility]???s estimated glomerular filtration rate (eGFR) will no [...] of individuals. Performed By: #### L [id number] ####[facility] ([facility])[address] [place] [address] Glucose [Mass/Vol] 147 mg/dL High 70-100 [facility] Comment on above: Performed By: #### L [id number] ####[facility] ([facility])[address] [place] [address] Potassium [Moles/Vol] 3.3 mmol/L Low 3.5-5.1 [facility] Comment on above: Performed By: #### L [id number] ####[facility] ([facility])[address] [place] [address] Sodium [Moles/Vol] 144 mmol/L Normal 136-145 [facility] Comment on above: Performed By: #### L [id number] ####[facility] ([facility])[address] [place] [address] Urea nitrogen [Mass/Vol] 31 mg/dL High 7-25 [facility] Comment on above: Performed By: #### L [id number] ####[facility] [place] [address] UREA NITROGEN/CREATININE (MASS RATIO) IN SER/PLAS 36.0 Normal [facility] Comment on above: Performed By: #### L [id number] ####[facility] ([facility])[address] [place] [address] CBCon 06-18-2025 Erythrocyte distribution width (RBC) [Ratio] 15.5 % High 11.5-15.0 [facility] Comment on above: Performed By: #### L [id number] ####[facility] ([facility])[address] [address] ERYTHROCYTE MEAN CORPUSCULAR HEMOGLOBIN CONCENTRATION (G/DL) BY AUTOMATED 33.5 g/dL Normal 32.0-35.0 [facility] Comment on above: Performed By: #### L [id number] ####[facility] ([facility])[address] [place] [address] Hematocrit (Bld) [Volume fraction] 26.3 % Low 36.0-50.0 [facility] Comment on above: Performed By: #### L [id number] ####[facility] ([facility])[address] [place] [address] Hemoglobin (Bld) [Mass/Vol] 8.8 g/dL Low 12.0-17.0 [facility] Comment on above: Performed By: #### L [id number] ####[facility] ([facility])[address] [place] [address] MCH (RBC) [Entitic mass] 29.0 pg Normal 27.0-33.0 [facility] Comment on above: Performed By: #### L [id number] ####[facility] ([facility])[address] [place] [address] MCV (RBC) [Entitic vol] 86.8 fL Normal 82.0-98.0 [facility] Comment on above: Performed By: #### L [id number] ####[facility] [place], [place] [address] PLATELETS (10*3/UL) IN BLOOD AUTOMATED COUNT 131 10*3/uL Low 150-400 [facility] Comment on above: Performed By: #### L [id number] ####[facility] [place], [place] [address] RBC (Bld) [#/Vol] 3.03 10*6/uL Low 3.80-5.70 [facility] Comment on above: Performed By: #### L [id number] ####[facility] ([facility])[address] [place], [place] [address] WBC (Bld) [#/Vol] 9.69 10*3/uL Normal 4.00-10.60 [facility] Comment on above: Performed By: #### L [id number] ####[facility] ([facility])[address] [place] [address] HEMOGLOBIN AND HEMATOCRIT, B LOODon 06-18-2025 Hematocrit (Bld) [Volume fraction] 24.4 % Low 36.0-50.0 [facility] Comment on above: Performed By: #### L [id number] ####[facility] ([facility])[address] [place] [address] Hemoglobin (Bld) [Mass/Vol] 8.0 g/dL Low 12.0-17.0 [facility] Comment on above: Performed By: #### L [id number] ####[facility] ([facility])[address] [place] [address] Hematocrit (Bld) [Volume fraction] 26.1 % Low 36.0-50.0 [facility] Comment on above: Performed By: #### L [id number] ####[facility] ([facility])[address] [place] [address] Hemoglobin (Bld) [Mass/Vol] 8.6 g/dL Low 12.0-17.0 [facility] Comment on above: Performed By: #### L [id number] ####[facility] ([facility])[address] [place] [address] Hematocrit (Bld) [Volume fraction] 25.8 % Low 36.0-50.0 [facility] Comment on above: Performed By: #### L [id number] ####[facility] ([facility])[address] [place] [address] Hemoglobin (Bld) [Mass/Vol] 9.0 g/dL Low 12.0-17.0 [facility] Comment on above: Performed By: #### L [id number] ####[facility] ([facility])[address] [place] [address] MAGNESIUMon 06-18-2025 Magnesium [Mass/Vol] 2.2 mg/dL Normal 1.9-2.7 [facility] Comment on above: Performed By: #### L [id number] ####[facility] ([facility])[address] [place] [address] PHOSPHORUSon 06-18-2025 Magnesium [Mass/Vol] 2.0 mg/dL Low 2.5-5.0 [facility] Comment on above: Performed By: #### L [id number] ####[facility] ([facility])[address] [place] [address] POCT GLUCOSE METER UNSOLICIT ED RESULTSon 06-18-2025 Glucose [Mass/Vol] 92 mg/dL Normal 70-105 [facility] Comment on above: Order Comment: Waive d Testing in the ED is performed under the ED CLIA certificate #[id number]. Result Comment: vabu naw2 Performed By: #### L [id number] ####[facility])[address] [place] [address] Glucose [Mass/Vol] 102 mg/dL Normal 70-105 [facility] Comment on above: Order Comment: Waive d Testing in the ED is performed under the ED CLIA certificate #[id number]. Result Comment: vabu naw2 Performed By: #### L [id number] ####[facility] [place] [address] Glucose [Mass/Vol] 137 mg/dL High 70-105 [facility] Comment on above: Order Comment: Waive d Testing in the ED is performed under the ED CLIA certificate #[id number]. Result Comment: mmol den3 Performed By: #### L [id number] ####[facility] [place] [address] Glucose [Mass/Vol] 137 mg/dL High 70-105 [facility] Comment on above: Order Comment: Waive d Testing in the ED is performed under the ED CLIA certificate #[id number]. Result Comment: mmol den3 Performed By: #### L [id number] ####[facility])[address] [place], [place] [id number] Glucose [Mass/Vol] 81 mg/dL Normal 70-105 [facility] Comment on above: Order Comment: Waive d Testing in the ED is performed under the ED CLIA certificate #[id number]. Result Comment: mmol den3 Performed By: #### L [id number] ####[facility] ([facility])[address] [place] [address] 30on 06-17-2025 30 [facility] ABG COMPLETE UNSOLICITED RES ULTSon 06-17-2025 A-ADO2 173 mmHg [facility] Comment on above: Performed By: #### L [id number] ####[facility] [id number] [place] [address] [facility] Base excess Calc (Bld) [Moles/Vol] -4.6000 mmol/L Low -2.0-3.0 [facility] Comment on above: Performed By: #### L [id number] ####[facility] [id number] [place] [address] [facility] CALCIUM IONIZED, ARTERIAL 1.17 mmol/L Normal 1.13-1.32 [facility] Comment on above: Performed By: #### L [id number] ####[facility] [id number] [place] [address] [facility] CARBOXYHEMOGLOBIN, ARTERIAL 1.8 % Normal [facility] Comment on above: Performed By: #### L [id number] ####[facility] [id number] [place] [address] [facility] Chloride [Moles/Vol] 117 mmol/L High 98-107 [facility] Comment on above: Performed By: #### L [id number] ####[facility] [id number] [place] [address] [facility] CO2 (Bld) [Partial pressure] 36 mm[Hg] Normal 35-45 [facility] Comment on above: Performed By: #### L [id number] ####[facility] [id number] [place] [address] [facility] DEOXYGENATED HEMOGLOBIN, ARTERIAL 0.0 % Normal [facility] Comment on above: Performed By: #### L [id number] ####[facility] [id number] [place] [address] [place] FIO2 50.0 % Normal [facility] Comment on above: Performed By: #### L [id number] ####[facility] [id number] [place] [address] [place] Glucose [Mass/Vol] 120 mg/dL High 65-95 [facility] Comment on above: Performed By: #### L [id number] ####[facility] [id number] [place] [address] [place] HCO3 (Bld) [Moles/Vol] 20.3 mmol/L Low 21.0-28.0 [facility] Comment on above: Performed By: #### L [id number] ####[facility] [id number] [place] [address] [facility] Hematocrit (Bld) [Volume fraction] 29 % Low 37-50 [facility] Comment on above: Performed By: #### L [id number] ####[facility] [id number] [place] [address] [facility] Hemoglobin (Bld) [Mass/Vol] 9.6 g/dL Normal [facility] Comment on above: Performed By: #### L [id number] ####[facility] [id number] [place] [address] [facility] LACTATE, ARTERIAL 0.80 mmol/L Normal 0.36-1.39 [facility] Comment on above: Performed By: #### L [id number] ####[facility] [id number] [place] [address] [facility] METHEMOGLOBIN, ARTERIAL 0.6 % Normal 0.0-1.5 [facility] Comment on above: Performed By: #### L [id number] ####[facility] [id number] [place] [address] [facility] Oxygen (Bld) [Partial pressure] 139 mm[Hg] High 83-108 [facility] Comment on above: Performed By: #### L [id number] ####[facility] [id number] [place] [address] [place] OXYGEN SATURATION (%) IN ARTERIAL BLOOD 100.0 % Normal 94.0-100.0 [facility] Comment on above: Performed By: #### L [id number] ####[facility] [id number] [place] [address] [place] OXYGENATED HEMOGLOBIN IN ARTERIAL BLOOD 97.7 % High 94.0-97.0 [facility] Comment on above: Performed By: #### L [id number] ####[facility] [id number] [place] [address] [facility] PAO2/PAO2 0.45 mmHg [facility] Comment on above: Performed By: #### L [id number] ####[facility] [id number] [place] [address] [facility] PEEP 8 cm H2O [facility] Comment on above: Performed By: #### L [id number] ####[facility] [id number] [place] [address] [facility] PF RATIO 278 mmHg [facility] Comment on above: Performed By: #### L [id number] ####[facility] [id number] [place] [address] [facility] PH OF ARTERIAL BLOOD 7.36 Normal 7.35-7.45 [facility] Comment on above: Performed By: #### L [id number] ####[facility] [id number] [place] [address] [facility] Potassium [Moles/Vol] 3.2 mmol/L Low 3.4-5.2 [facility] Comment on above: Performed By: #### L [id number] ####[facility] [id number] [place] [address] [facility] Sodium [Moles/Vol] 144 mmol/L Normal 136-146 [facility] Comment on above: Performed By: #### L [id number] ####[facility] [id number] [place] [address] [facility] TEMPERATURE 37.0 ???C [facility] Comment on above: Performed By: #### L [id number] ####[facility] [id number] [place] [address] [facility] TOTAL MINUTE VOLUME 9.9 L [facility] Comment on above: Performed By: #### L [id number] ####[facility] [id number] [place] [address] [facility] A-ADO2 [facility] Comment on above: Result Comment: C^In calculable Performed By: #### L [id number] ####[facility] [id number] [place] [address] [facility] Base excess Calc (Bld) [Moles/Vol] -4.7000 mmol/L Low -2.0-3.0 [facility] Comment on above: Performed By: #### L [id number] ####[facility] [id number] [place] [address] [facility] CALCIUM IONIZED, ARTERIAL 1.15 mmol/L Normal 1.13-1.32 [facility] Comment on above: Performed By: #### L [id number] ####[facility] [id number] [place] [address] [facility] CARBOXYHEMOGLOBIN, ARTERIAL 1.8 % Normal [facility] Comment on above: Performed By: #### L [id number] ####[facility] [id number] [place] [address] [facility] Chloride [Moles/Vol] 119 mmol/L High 98-107 [facility] Comment on above: Performed By: #### L [id number] ####[facility] [id number] [place] [address] [place] CO2 (Bld) [Partial pressure] 37 mm[Hg] Normal 35-45 [facility] Comment on above: Performed By: #### L [id number] ####[facility] [id number] [place] [address] [facility] DEOXYGENATED HEMOGLOBIN, ARTERIAL 0.1 % Normal [facility] Comment on above: Performed By: #### L [id number] ####[facility] [id number] [place] [address] [place] Glucose [Mass/Vol] 118 mg/dL High 65-95 [facility] Comment on above: Performed By: #### L [id number] ####[facility] [id number] [place] [address] [place] HCO3 (Bld) [Moles/Vol] 20.4 mmol/L Low 21.0-28.0 [facility] Comment on above: Performed By: #### L [id number] ####[facility] [id number] [place] [address] [place] Hematocrit (Bld) [Volume fraction] 28 % Low 37-50 [facility] Comment on above: Performed By: #### L [id number] ####[facility] [id number] [place] [address] [place] Hemoglobin (Bld) [Mass/Vol] 9.4 g/dL Normal [facility] Comment on above: Performed By: #### L [id number] ####[facility] [id number] [place] [address] [place] LACTATE, ARTERIAL 0.70 mmol/L Normal 0.36-1.39 [facility] Comment on above: Performed By: #### L [id number] ####[facility] [id number] [place] [address] [facility] METHEMOGLOBIN, ARTERIAL 0.8 % Normal 0.0-1.5 [facility] Comment on above: Performed By: #### L [id number] ####[facility] [id number] [place] [address] [place] Oxygen (Bld) [Partial pressure] 202 mm[Hg] High 83-108 [facility] Comment on above: Performed By: #### L [id number] ####[facility] [id number] [place] [address] [place] OXYGEN SATURATION (%) IN ARTERIAL BLOOD 99.9 % Normal 94.0-100.0 [facility] Comment on above: Performed By: #### L [id number] ####[facility] [id number] [place] [address] [place] OXYGENATED HEMOGLOBIN IN ARTERIAL BLOOD 97.3 % High 94.0-97.0 [facility] Comment on above: Performed By: #### L [id number] ####[facility] [id number] [place] [address] [place] PAO2/PAO2 Normal [facility] Comment on above: Result Comment: C^In calculable Performed By: #### L [id number] ####[facility] [id number] [place] [address] [facility] PF RATIO Normal [facility] Comment on above: Result Comment: C^In calculable Performed By: #### L [id number] ####[facility] [id number] [place] [address] [facility] PH OF ARTERIAL BLOOD 7.35 Normal 7.35-7.45 [facility] Comment on above: Performed By: #### L [id number] ####[facility] [id number] [place] [address] [facility] Potassium [Moles/Vol] 3.1 mmol/L Low 3.4-5.2 [facility] Comment on above: Performed By: #### L [id number] ####[facility] [id number] [place] [address] [facility] Sodium [Moles/Vol] 142 mmol/L Normal 136-146 [facility] Comment on above: Performed By: #### L [id number] ####[facility] [id number] [place] [address] [facility] TEMPERATURE 37.0 ???C Normal [facility] Comment on above: Performed By: #### L [id number] ####[facility] [id number] [place] [address] [facility] ANESon 06-17-2024 ANES [facility] BASIC METABOLIC PANELon 08 Anion gap [Moles/Vol] 11 mmol/L Normal 7-20 [facility] Comment on above: Performed By: #### L [id number] ####[facility] ([facility])[address] [place] [address] Calcium [Mass/Vol] 7.4 mg/dL Low 8.6-10.3 [facility] Comment on above: Performed By: #### L [id number] ####[facility] ([facility])[address] [place] [address] Chloride [Moles/Vol] 117 mmol/L High 98-107 [facility] Comment on above: Performed By: #### L [id number] ####[facility] (BEAKER)[address] [place] [address] CO2 [Moles/Vol] 20 mmol/L Low 21-31 [facility] Comment on above: Performed By: #### L [id number] ####[facility] [place] [address] Creatinine [Mass/Vol] 0.89 mg/dL Normal 0.60-1.30 [facility] Comment on above: Performed By: #### L [id number] ####[facility] [place] [address] GLOMERULAR FILTRATION RATE ML/MIN/1.73 SQ M.PREDICTED 71.5 mL/min/1.73m*2 Normal >60.0 [facility] Comment on above: Result Comment: The [facility]???s estimated glomerular filtration rate (eGFR) will no [...] of individuals. Performed By: #### L [id number] ####[facility] (BEAKER)[address] [place] [address] Glucose [Mass/Vol] 167 mg/dL High 70-100 [facility] Comment on above: Performed By: #### L [id number] ####[facility] (BEAKER)[address] [place] [address] Potassium [Moles/Vol] 3.2 mmol/L Low 3.5-5.1 [facility] Comment on above: Performed By: #### L [id number] ####[facility] (BEAKER)[address] [place] [address] Sodium [Moles/Vol] 145 mmol/L Normal 136-145 [facility] Comment on above: Performed By: #### L [id number] ####[facility] [place] [address] Urea nitrogen [Mass/Vol] 32 mg/dL High 7-25 [facility] Comment on above: Performed By: #### L [id number] ####[facility] ([facility])[address] [place] [address] UREA NITROGEN/CREATININE (MASS RATIO) IN SER/PLAS 36.0 Normal [facility] Comment on above: Performed By: #### L [id number] ####[facility] ([facility])[address] [place] [address] Anion gap [Moles/Vol] 10 mmol/L Normal 7-20 [facility] Comment on above: Performed By: #### L [id number] ####[facility] ([facility])[address] [place] [address] Calcium [Mass/Vol] 7.5 mg/dL Low 8.6-10.3 [facility] Comment on above: Performed By: #### L [id number] ####[facility] ([facility])[address] [place] [address] Chloride [Moles/Vol] 118 mmol/L High 98-107 [facility] Comment on above: Performed By: #### L [id number] ####[facility] [place] [address] CO2 [Moles/Vol] 21 mmol/L Normal 21-31 [facility] Comment on above: Performed By: #### L [id number] ####[facility] [place] [address] Creatinine [Mass/Vol] 0.90 mg/dL Normal 0.60-1.30 [facility] Comment on above: Performed By: #### L [id number] ####[facility] [place] [address] GLOMERULAR FILTRATION RATE ML/MIN/1.73 SQ M.PREDICTED 70.5 mL/min/1.73m*2 Normal >60.0 [facility] Comment on above: Result Comment: The [facility]???s estimated glomerular filtration rate (eGFR) will no [...] of individuals. Performed By: #### L [id number] ####[facility] ([facility])[address] [place] [address] Glucose [Mass/Vol] 152 mg/dL High 70-100 [facility] Comment on above: Performed By: #### L [id number] ####[facility] ([facility])[address] [place] [address] Potassium [Moles/Vol] 3.9 mmol/L Normal 3.5-5.1 [facility] Comment on above: Performed By: #### L [id number] ####[facility] ([facility])[address] [place] [address] Sodium [Moles/Vol] 145 mmol/L Normal 136-145 [facility] Comment on above: Performed By: #### L [id number] ####[facility] [place] [address] Urea nitrogen [Mass/Vol] 33 mg/dL High 7-25 [facility] Comment on above: Performed By: #### L [id number] ####[facility] ([facility])[address] [place] [address] UREA NITROGEN/CREATININE (MASS RATIO) IN SER/PLAS 36.7 Normal [facility] Comment on above: Performed By: #### L [id number] ####[facility] (BEAKER)[address] [place] [address] Anion gap [Moles/Vol] 9 mmol/L Normal 7-20 [facility] Comment on above: Performed By: #### L [id number] ####[facility] ([facility])[address] [place] [address] Calcium [Mass/Vol] 7.6 mg/dL Low 8.6-10.3 [facility] Comment on above: Performed By: #### L [id number] ####[facility] (BEAKER)[address] [place] [address] Chloride [Moles/Vol] 119 mmol/L High 98-107 [facility] Comment on above: Performed By: #### L [id number] ####[facility] (BEAKER)[address] [place] [address] CO2 [Moles/Vol] 20 mmol/L Low 21-31 [facility] Comment on above: Performed By: #### L [id number] ####[facility] (BEAKER)[address] [place] [address] Creatinine [Mass/Vol] 0.78 mg/dL Normal 0.60-1.30 [facility] Comment on above: Performed By: #### L [id number] ####[facility] [place] [address] GLOMERULAR FILTRATION RATE ML/MIN/1.73 SQ M.PREDICTED 83.7 mL/min/1.73m*2 Normal >60.0 [facility] Comment on above: Result Comment: The [facility]???s estimated glomerular filtration rate (eGFR) will no [...] of individuals. Performed By: #### L [id number] ####[facility] [place] [address] Glucose [Mass/Vol] 128 mg/dL High 70-100 [facility] Comment on above: Performed By: #### L [id number] ####[facility] [place] [address] Potassium [Moles/Vol] 3.3 mmol/L Low 3.5-5.1 [facility] Comment on above: Performed By: #### L [id number] ####[facility] ([facility])[address] [place] [address] Sodium [Moles/Vol] 145 mmol/L Normal 136-145 [facility] Comment on above: Performed By: #### L [id number] ####[facility] ([facility])[address] [place] [address] Urea nitrogen [Mass/Vol] 35 mg/dL High 7-25 [facility] Comment on above: Performed By: #### L [id number] ####[facility] ([facility])[address] [place] [address] UREA NITROGEN/CREATININE (MASS RATIO) IN SER/PLAS 44.9 [facility] Comment on above: Performed By: #### L [id number] ####[facility] ([facility])[address] [place] [address] BLOOD CULTUREon 06-17-2025 Bacteria identified Cx Nom (Bld) No growth at 5 days [facility] Comment on above: Order Comment: From a different site than #1. Performed By: #### L [id number] ####[facility] [place] [address] Bacteria identified Cx Nom (Bld) No growth at 5 days [facility] Comment on above: Performed By: #### L [id number] ####[facility] ([facility])[address] [place] [address] CBC WITH AUTO DIFFERENTIALon 06-17-2025 Basophils (Bld) [#/Vol] 0.02 10*3/uL Normal 0.00-0.20 [facility] Comment on above: Performed By: #### L [id number] ####[facility] (BEAKER)[address] [place], [place] [address] Basophils/100 WBC (Bld) 0.2 % Normal 0.0-1.0 [facility] Comment on above: Performed By: #### L [id number] ####[facility] (BEAKER)[address] [place] [address] Eosinophils (Bld) [#/Vol] 0.01 10*3/uL Normal 0.00-0.50 [facility] Comment on above: Performed By: #### L [id number] ####[facility] (BEAKER)[address] [place] [address] Eosinophils/100 WBC (Bld) 0.1 % Normal 0.0-6.0 [facility] Comment on above: Performed By: #### L [id number] ####[facility] (BEAKER)[address] [place] [address] Erythrocyte distribution width (RBC) [Ratio] 15.0 % Normal 11.5-15.0 [facility] Comment on above: Performed By: #### L [id number] ####[facility] (BEAKER)[address] [place] [address] ERYTHROCYTE MEAN CORPUSCULAR HEMOGLOBIN CONCENTRATION (G/DL) BY AUTOMATED 33.6 g/dL Normal 32.0-35.0 [facility] Comment on above: Performed By: #### L [id number] ####[facility] (BEAKER)[address] [place] [address] Hematocrit (Bld) [Volume fraction] 30.1 % Low 36.0-50.0 [facility] Comment on above: Performed By: #### L [id number] ####[facility] (BEAKER)[address] [place] [address] Hemoglobin (Bld) [Mass/Vol] 10.1 g/dL Low 12.0-17.0 [facility] Comment on above: Performed By: #### L [id number] ####[facility] (BEAKER)[address] [place] [address] Immature granulocytes (Bld) [#/Vol] 0.04 10*3/uL Normal 0.00-0.20 [facility] Comment on above: Performed By: #### L [id number] ####[facility] (BEAKER)[address] [place] [address] Immature granulocytes/100 WBC (Bld) 0.4 % Normal 0.0-1.0 [facility] Comment on above: Performed By: #### L [id number] ####[facility] (BEAKER)[address] [place] [address] Lymphocytes (Bld) [#/Vol] 0.98 10*3/uL Low 1.20-4.00 [facility] Comment on above: Performed By: #### L [id number] ####[facility] (BEAKER)[address] [place] [address] Lymphocytes/100 WBC (Bld) 10.8 % Low 20.0-45.0 [facility] Comment on above: Performed By: #### L [id number] ####[facility] (BEAKER)[address] [place] [address] MCH (RBC) [Entitic mass] 29.4 pg Normal 27.0-33.0 [facility] Comment on above: Performed By: #### L [id number] ####[facility] (BEAKER)[address] [place] [address] MCV (RBC) [Entitic vol] 87.5 fL Normal 82.0-98.0 [facility] Comment on above: Performed By: #### L [id number] ####[facility] ([facility]AKER)[address] [place] [address] Monocytes (Bld) [#/Vol] 0.50 10*3/uL Normal 0.10-1.00 [facility] Comment on above: Performed By: #### L [id number] ####[facility] ([facility])[address] [place] [address] Monocytes/100 WBC (Bld) 5.5 % Normal 5.0-12.0 [facility] Comment on above: Performed By: #### L [id number] ####[facility] ([facility])[address] [address] Neutrophils (Bld) [#/Vol] 7.50 10*3/uL Normal 1.60-7.60 [facility] Comment on above: Performed By: #### L [id number] ####[facility] ([facility])[address] [address] Neutrophils/100 WBC (Bld) 83.0 % High 40.0-72.0 [facility] Comment on above: Performed By: #### L [id number] ####[facility] ([facility])[address] [place] [address] NRBC (PER 100 WBCS) BY AUTOMATED COUNT 0.0 % Normal 0 [facility] Comment on above: Performed By: #### L [id number] ####[facility] ([facility])[address] [address] PLATELETS (10*3/UL) IN BLOOD AUTOMATED COUNT 141 10*3/uL Low 150-400 [facility] Comment on above: Performed By: #### L [id number] ####[facility] ([facility])[address] [place] [address] RBC (Bld) [#/Vol] 3.44 10*6/uL Low 3.80-5.70 [facility] Comment on above: Performed By: #### L [id number] ####[facility] ([facility])[address] [address] WBC (Bld) [#/Vol] 9.05 10*3/uL Normal 4.00-10.60 [facility] Comment on above: Performed By: #### L [id number] ####[facility] [place] [address] EXTEM Con 06-17-2025 EXTEM C A10 60 mm Normal 45-62 [facility] Comment on above: Performed By: #### E XTEM C ####[facility] [id number] [place] [address] [place] EXTEM C A20 67 mm Normal 54-69 [facility] Comment on above: Performed By: #### E XTEM C ####[facility] [id number] [place] [address] [place] EXTEM C A5 49 mm Normal 33-52 [facility] Comment on above: Performed By: #### E XTEM C ####[facility] [id number] [place] [address] [place] [address] 53 s Normal 51-73 [facility] Comment on above: Performed By: #### E XTEM C ####[facility] [id number] [place] [address] [place] EXTEM C LI60 98 % Normal 94-100 [facility] Comment on above: Performed By: #### E XTEM C ####[facility] [id number] [place] [address] [place] EXTEM C MCF 69 mm Normal 57-72 [facility] Comment on above: Performed By: #### E XTEM C ####[facility] [id number] [place] [address] [place] EXTEM C ML 7 % High 0-6 [facility] Comment on above: Result Comment: CT^P reliminary Result Performed By: #### E XTEM C ####[facility] [id number] [place] [address] [place] FIBTEM Con 06-17-2025 FIBTEM C A10 19 mm High 6-17 [facility] Comment on above: Performed By: #### F IBTEM C ####[facility] [id number] [place] [address] [place] FIBTEM C A20 20 mm High 6-18 [facility] Comment on above: Performed By: #### F IBTEM C ####[facility] [id number] [place] [address] [place] FIBTEM C A5 17 mm High 5-16 [facility] Comment on above: Performed By: #### F IBTEM C ####[facility] [id number] [place] [address] [facility] FIBTEM C MCF 21 mm High 6-19 [facility] Comment on above: Performed By: #### F IBTEM C ####[facility] [id number] [place] [address] [facility] HEMOGLOBIN AND HEMATOCRIT, B LOODon 06-17-2025 Hematocrit (Bld) [Volume fraction] 28.1 % Low 36.0-50.0 [facility] Comment on above: Performed By: #### L [id number] ####[facility] ([facility])[address] [place] [address] Hemoglobin (Bld) [Mass/Vol] 9.5 g/dL Low 12.0-17.0 [facility] Comment on above: Performed By: #### L [id number] ####[facility] ([facility])[address] [place] [address] HEPATIC FUNCTION PANELon Albumin [Mass/Vol] 3.0 g/dL Low 3.5-5.7 [facility] Comment on above: Performed By: #### L [id number] ####[facility] [place] [address] ALP [Catalytic activity/Vol] 64 U/L Normal 34-104 [facility] Comment on above: Performed By: #### L [id number] ####[facility] [place] [address] ALT [Catalytic activity/Vol] 4 U/L Low 7-52 [facility] Comment on above: Performed By: #### L [id number] ####[facility] ([facility])[address] [place] [address] AST [Catalytic activity/Vol] 8 U/L Low 13-39 [facility] Comment on above: Performed By: #### L [id number] ####[facility] ([facility])[address] [place] [address] Bilirubin [Mass/Vol] 0.8 mg/dL Normal 0.3-1.0 [facility] Comment on above: Performed By: #### L [id number] ####[facility] ([facility])[address] [place] [address] Magnesium [Mass/Vol] 0.2 mg/dL Normal 0-0.2 [facility] Comment on above: Performed By: #### L [id number] ####[facility] ([facility])[address] [place] [address] Protein [Mass/Vol] 5.2 g/dL Low 6.0-8.3 [facility] Comment on above: Performed By: #### L [id number] ####[facility] ([facility])[address] [place] [address] HEPTEM Con 06-17-2025 HEPTEM C A10 56 mm Normal 44-61 [facility] Comment on above: Performed By: #### H EPTEM C ####[facility] [id number] [place] [address] [place] HEPTEM C A20 63 mm Normal 52-67 [facility] Comment on above: Performed By: #### H EPTEM C ####[facility] [id number] [place] [address] [place] HEPTEM C A5 46 mm Normal 33-51 [facility] Comment on above: Performed By: #### H EPTEM C ####[facility] [id number] [place] [address] 163 s Normal 141-215 [facility] Comment on above: Performed By: #### H EPTEM C ####[facility] [id number] [place] [address] [facility] HEPTEM C MCF 64 mm Normal 54-69 [facility] Comment on above: Performed By: #### H EPTEM C ####[facility] [id number] [place] [address] [facility] HISTOLOGY - TISSUE EXAMon LAB AP CASE REPORT Normal [facility] Comment on above: Order Comment: Pre-o p diagnosis:Hematemesis, unspecified whether nausea present [K92.0]Marginal ulcer [K28.9] Result Comment: Surg ical Pathology Case: [id number] Provider: Roberth Luis MD Collected: 06/17/2025 0017Ordering Location: [facility] Received: 06/20/2025 0833Pathologist: DANIEL Drewpecimens: A) - Gastric, Gastrojejunostomy B) - Gastric, KENAN Performed By: #### L [id number] ####[facility] ([facility])[address] [place] [address] LAB AP CLINICAL INFORMATION Normal [facility] Comment on above: Order Comment: Pre-o p diagnosis:Hematemesis, unspecified whether nausea present [K92.0]Marginal ulcer [K28.9] Result Comment: Post -Op IeskwarwfN82.0 - Hematemesis, unspecified whether nausea present [ICD-10-CM]K28.9 - Marginal ulcer [ICD-10-CM] Performed By: #### L [id number] ####[facility] ([facility])[address] [place] [address] LAB AP GROSS DESCRIPTION A. Gastric. Normal [facility] Comment on above: Order Comment: Pre-o p [...] transmural defect. Gross photographs are taken and claim representative sections are submitted as follows:A1-A3: Fibrotic central areaA4: Defect, outpouched endA5: DefectA6: Jejunal margin, en facePeace Ramires Pathologists' Auctioneer Automobile studentKatharina Perez Pathologists' AssistantB. Gastric.The specimen is received in formalin labeled Alisia Correa and KENAN. It consists of a 14.3 x 10.2 cm unoriented portion of small bowel received with 2 stapled margins and scant attached adipose tissue. The serosal surface is austin-pink and smooth; the mucosa is austin-pink, folded, and glistening. No lymph nodes are identified. Hydrological Technical Officer sections are submitted in 3 cassettes with the margins in B1-B2.Peace Ramires, Pathologists' Auctioneer Automobile student Performed By: #### L [id number] ####[facility] ([facility])[address] [place] [address] LAB AP MICROSCOPIC DESCRIPTION Microscopic examination performed. [facility] Comment on above: Order Comment: Pre-o p diagnosis:Hematemesis, unspecified whether nausea present [K92.0]Marginal ulcer [K28.9] Performed By: #### L [id number] ####[facility] ([facility])[address] [place] [address] LAB AP REPORT FINAL DIAGNOSIS NARRATIVE [facility] Comment on above: Order Comment: Pre-o p diagnosis:Hematemesis, unspecified whether nausea present [K92.0]Marginal ulcer [K28.9] Result Comment: A. L abeled gastrojejunostomy :Ulcerated small bowel with acute serositis and fibrovascular adhesions.No malignancy identified.Stapled jejunal resection margin viable.B. Labeled KENAN :Benign small bowel.No activity, celiac disease, dysplasia or malignancy identified.Resection margins viable. at 1636 EDT Performed By: #### L [id number] ####[facility] [place] [address] INTEM Con 06-17-2025 INTEM C A10 58 mm Normal 46-63 [facility] Comment on above: Performed By: #### I NTEM C ####[facility] [id number] [place] [address] [facility] INTEM C A20 64 mm Normal 53-68 [facility] Comment on above: Performed By: #### I NTEM C ####[facility] [id number] [place] [address] [facility] INTEM C A5 47 mm Normal 36-54 [facility] Comment on above: Performed By: #### I NTEM C ####[facility] [id number] [place] [address] [facility] INTEM C CT 170 s Normal 139-205 [facility] Comment on above: Performed By: #### I NTEM C ####[facility] [id number] [place] [address] [facility] INTEM C LI60 98 % Normal 93-100 [facility] Comment on above: Performed By: #### I NTEM C ####[facility] [id number] [place] [address] [facility] INTEM C MCF 65 mm Normal 55-70 [facility] Comment on above: Performed By: #### I NTEM C ####[facility] [id number] [place] [address] [facility] INTEM C ML 7 % Normal 0-7 [facility] Comment on above: Result Comment: CT^P reliminary Result Performed By: #### I NTEM C ####[facility] [id number] [place] [address] [facility] LACTIC ACID WITH 4 HOUR REFL EXon 06-17-2025 LACTATE (MMOL/L) IN SER/PLAS 0.8 mmol/L Normal 0.5-2.2 [facility] Comment on above: Performed By: #### L [id number] ####[facility] ([facility])[address] [place] [address] MAGNESIUMon 06-17-2025 Magnesium [Mass/Vol] 1.8 mg/dL Low 1.9-2.7 [facility] Comment on above: Performed By: #### L [id number] ####[facility] ([facility])[address] [place] [address] PHOSPHORUSon 06-17-2025 Magnesium [Mass/Vol] 2.3 mg/dL Low 2.5-5.0 [facility] Comment on above: Performed By: #### L [id number] ####[facility] ([facility])[address] [place] [address] POCT GLUCOSE METER UNSOLICIT ED RESULTSon 06-17-2025 Glucose [Mass/Vol] 103 mg/dL Normal 70-105 [facility] Comment on above: Order Comment: Waive d Testing in the ED is performed under the ED CLIA certificate #[id number]. Result Comment: vabu naw2 Performed By: #### L [id number] ####[facility] ([facility])[address] [place] [address] Glucose [Mass/Vol] 109 mg/dL High 70-105 [facility] Comment on above: Order Comment: Waive d Testing in the ED is performed under the ED CLIA certificate #[id number]. Result Comment: vabu naw2 Performed By: #### L [id number] ####[facility] ([facility])[address] [place] [address] Glucose [Mass/Vol] 83 mg/dL Normal 70-105 [facility] Comment on above: Order Comment: Waive d Testing in the ED is performed under the ED CLIA certificate #[id number]. Result Comment: tcep ek2 Performed By: #### L [id number] ####[facility] ([facility])[address] [place] [address] Glucose [Mass/Vol] 150 mg/dL High 70-105 [facility] Comment on above: Order Comment: Waive d Testing in the ED is performed under the ED CLIA certificate #[id number]. Result Comment: tcep ek2 Performed By: #### L [id number] ####[facility] ([facility])[address] [place] [address] 30on 06-16-2025 30 Normal [facility] 30 [facility] 30 [facility] ABG COMPLETE UNSOLICITED RES ULTSon 06-16-2025 A-ADO2 [facility] Comment on above: Result Comment: C^In calculable Performed By: #### L [id number] ####[facility] [id number] [place] [address] [facility] Base excess Calc (Bld) [Moles/Vol] -5.0000 mmol/L Low -2.0-3.0 [facility] Comment on above: Performed By: #### L [id number] ####[facility] [id number] [place] [address] [place] CALCIUM IONIZED, ARTERIAL 1.15 mmol/L Normal 1.13-1.32 [facility] Comment on above: Performed By: #### L [id number] ####[facility] [id number] [place] [address] [place] CARBOXYHEMOGLOBIN, ARTERIAL 1.8 % Normal [facility] Comment on above: Performed By: #### L [id number] ####[facility] [id number] [place] [address] [place] Chloride [Moles/Vol] 118 mmol/L High 98-107 [facility] Comment on above: Performed By: #### L [id number] ####[facility] [id number] [place] [address] [place] CO2 (Bld) [Partial pressure] 34 mm[Hg] Low 35-45 [facility] Comment on above: Performed By: #### L [id number] ####[facility] [id number] [place] [address] [place] DEOXYGENATED HEMOGLOBIN, ARTERIAL 0.2 % Normal [facility] Comment on above: Performed By: #### L [id number] ####[facility] [id number] [place] [address] [place] Glucose [Mass/Vol] 112 mg/dL High 65-95 [facility] Comment on above: Performed By: #### L [id number] ####[facility] [id number] [place] [address] [place] HCO3 (Bld) [Moles/Vol] 19.7 mmol/L Low 21.0-28.0 [facility] Comment on above: Performed By: #### L [id number] ####[facility] [id number] [place] [address] [place] Hematocrit (Bld) [Volume fraction] 28 % Low 37-50 [facility] Comment on above: Performed By: #### L [id number] ####[facility] [id number] [place] [address] [place] Hemoglobin (Bld) [Mass/Vol] 9.2 g/dL Normal [facility] Comment on above: Performed By: #### L [id number] ####[facility] [id number] [place] [address] [place] LACTATE, ARTERIAL 0.60 mmol/L Normal 0.36-1.39 [facility] Comment on above: Performed By: #### L [id number] ####[facility] [id number] [place] [address] [place] METHEMOGLOBIN, ARTERIAL 1.1 % Normal 0.0-1.5 [facility] Comment on above: Performed By: #### L [id number] ####[facility] [id number] [place] [address] [place] Oxygen (Bld) [Partial pressure] 168 mm[Hg] High 83-108 [facility] Comment on above: Performed By: #### L [id number] ####[facility] [id number] [place] [address] [place] OXYGEN SATURATION (%) IN ARTERIAL BLOOD 99.8 % Normal 94.0-100.0 [facility] Comment on above: Performed By: #### L [id number] ####[facility] [id number] [place] [address] [place] OXYGENATED HEMOGLOBIN IN ARTERIAL BLOOD 97.0 % Normal 94.0-97.0 [facility] Comment on above: Performed By: #### L [id number] ####[facility] [id number] [place] [address] [facility] PAO2/PAO2 Normal [facility] Comment on above: Result Comment: C^In calculable Performed By: #### L [id number] ####[facility] [id number] [place] [address] [place] PF RATIO Normal [facility] Comment on above: Result Comment: C^In calculable Performed By: #### L [id number] ####[facility] [id number] [place] [address] [place] PH OF ARTERIAL BLOOD 7.37 Normal 7.35-7.45 [facility] Comment on above: Performed By: #### L [id number] ####[facility] [id number] [place] [address] [place] Potassium [Moles/Vol] 3.1 mmol/L Low 3.4-5.2 [facility] Comment on above: Performed By: #### L [id number] ####[facility] [id number] [place] [address] [place] Sodium [Moles/Vol] 144 mmol/L Normal 136-146 [facility] Comment on above: Performed By: #### L [id number] ####[facility] [id number] [place] [address] [place] TEMPERATURE 37.0 ???C [facility] Comment on above: Performed By: #### L [id number] ####[facility] [id number] [place] [address] [place] A-ADO2 Normal [facility] Comment on above: Result Comment: C^In calculable Performed By: #### L [id number] ####[facility] [id number] [address] Base excess Calc (Bld) [Moles/Vol] -4.9000 mmol/L Low -2.0-3.0 [facility] Comment on above: Performed By: #### L [id number] ####[facility] [id number] [place] [address] CALCIUM IONIZED, ARTERIAL 1.11 mmol/L Low 1.13-1.32 [facility] Comment on above: Performed By: #### L [id number] ####[facility] [id number] [place] [address] CARBOXYHEMOGLOBIN, ARTERIAL 1.5 % Normal [facility] Comment on above: Performed By: #### L [id number] ####[facility] [id number] [place] [address] Chloride [Moles/Vol] 119 mmol/L High 98-107 [facility] Comment on above: Performed By: #### L [id number] ####[facility] [id number] [address] CO2 (Bld) [Partial pressure] 31 mm[Hg] Low 35-45 [facility] Comment on above: Performed By: #### L [id number] ####[facility] [id number] [address] DEOXYGENATED HEMOGLOBIN, ARTERIAL 0.3 % Normal [facility] Comment on above: Performed By: #### L [id number] ####[facility] [id number] [place] [address] [facility] Glucose [Mass/Vol] 154 mg/dL High 65-95 [facility] Comment on above: Performed By: #### L [id number] ####[facility] [id number] [place] [address] HCO3 (Bld) [Moles/Vol] 19.2 mmol/L Low 21.0-28.0 [facility] Comment on above: Performed By: #### L [id number] ####[facility] [id number] [place] [address] [facility] Hematocrit (Bld) [Volume fraction] 29 % Low 37-50 [facility] Comment on above: Performed By: #### L [id number] ####[facility] [id number] [place] [address] [facility] Hemoglobin (Bld) [Mass/Vol] 9.5 g/dL Normal [facility] Comment on above: Performed By: #### L [id number] ####[facility] [id number] [place] [address] [facility] LACTATE, ARTERIAL 0.90 mmol/L Normal 0.36-1.39 [facility] Comment on above: Performed By: #### L [id number] ####[facility] [id number] [place] [address] [facility] METHEMOGLOBIN, ARTERIAL 1.2 % Normal 0.0-1.5 [facility] Comment on above: Performed By: #### L [id number] ####[facility] [id number] [place] [address] [facility] Oxygen (Bld) [Partial pressure] 167 mm[Hg] High 83-108 [facility] Comment on above: Performed By: #### L [id number] ####[facility] [id number] [place] [address] [facility] OXYGEN SATURATION (%) IN ARTERIAL BLOOD 99.7 % Normal 94.0-100.0 [facility] Comment on above: Performed By: #### L [id number] ####[facility] [id number] [place] [address] [facility] OXYGENATED HEMOGLOBIN IN ARTERIAL BLOOD 96.9 % Normal 94.0-97.0 [facility] Comment on above: Performed By: #### L [id number] ####[facility] [id number] [place] [address] [facility] PAO2/PAO2 Normal [facility] Comment on above: Result Comment: C^In calculable Performed By: #### L [id number] ####[facility] [id number] [place] [address] [facility] PF RATIO Normal [facility] Comment on above: Result Comment: C^In calculable Performed By: #### L [id number] ####[facility] [id number] [place] [address] [facility] PH OF ARTERIAL BLOOD 7.40 Normal 7.35-7.45 [facility] Comment on above: Performed By: #### L [id number] ####[facility] [id number] [place] [address] [facility] Potassium [Moles/Vol] 3.5 mmol/L Normal 3.4-5.2 [facility] Comment on above: Performed By: #### L [id number] ####[facility] [id number] [place] [address] [facility] Sodium [Moles/Vol] 142 mmol/L Normal 136-146 [facility] Comment on above: Performed By: #### L [id number] ####[facility] [id number] [place] [address] [facility] TEMPERATURE 37.0 ???C [facility] Comment on above: Performed By: #### L [id number] ####[facility] [id number] [place] [address] [facility] A-ADO2 68 mmHg [facility] Comment on above: Performed By: #### L [id number] ####[facility] [id number] [place] [address] [facility] Base excess Calc (Bld) [Moles/Vol] -2.7000 mmol/L Low -2.0-3.0 [facility] Comment on above: Performed By: #### L [id number] ####[facility] [id number] [place] [address] [facility] CALCIUM IONIZED, ARTERIAL 1.18 mmol/L Normal 1.13-1.32 [facility] Comment on above: Performed By: #### L [id number] ####[facility] USUYOHR2691 [place] [address] [place] CARBOXYHEMOGLOBIN, ARTERIAL 1.5 % Normal [facility] Comment on above: Performed By: #### L [id number] ####[facility] QZVTEOB2044 [place] [address] [place] Chloride [Moles/Vol] 116 mmol/L High 98-107 [facility] Comment on above: Performed By: #### L [id number] ####[facility] [id number] [place] [address] [place] CO2 (Bld) [Partial pressure] 33 mm[Hg] Low 35-45 [facility] Comment on above: Performed By: #### L [id number] ####[facility] [id number] [place] [address] [place] DEOXYGENATED HEMOGLOBIN, ARTERIAL 0.8 % Normal [facility] Comment on above: Performed By: #### L [id number] ####[facility] [employer] [id number] [place] [address] [place] FIO2 30.0 % Normal [facility] Comment on above: Performed By: #### L [id number] ####[facility] [id number] [place] [address] [place] Glucose [Mass/Vol] 186 mg/dL High 65-95 [facility] Comment on above: Performed By: #### L [id number] ####[facility] [employer] [id number] [place] [address] [place] HCO3 (Bld) [Moles/Vol] 21.4 mmol/L Normal 21.0-28.0 [facility] Comment on above: Performed By: #### L [id number] ####[facility] [id number] [place] [address] [place] Hematocrit (Bld) [Volume fraction] 24 % Low 37-50 [facility] Comment on above: Performed By: #### L [id number] ####[facility] [id number] [place] [address] [facility] Hemoglobin (Bld) [Mass/Vol] 8.1 g/dL Normal [facility] Comment on above: Performed By: #### L [id number] ####[facility] [id number] [place] [address] [facility] LACTATE, ARTERIAL 0.70 mmol/L Normal 0.36-1.39 [facility] Comment on above: Performed By: #### L [id number] ####[facility] [id number] [place] [address] [facility] METHEMOGLOBIN, ARTERIAL 0.4 % Normal 0.0-1.5 [facility] Comment on above: Performed By: #### L [id number] ####[facility] [id number] [place] [address] [facility] Oxygen (Bld) [Partial pressure] 105 mm[Hg] Normal 83-108 [facility] Comment on above: Performed By: #### L [id number] ####[facility] [id number] [place] [address] [facility] OXYGEN SATURATION (%) IN ARTERIAL BLOOD 99.2 % Normal 94.0-100.0 [facility] Comment on above: Performed By: #### L [id number] ####[facility] [id number] [place] [address] [facility] OXYGENATED HEMOGLOBIN IN ARTERIAL BLOOD 97.3 % High 94.0-97.0 [facility] Comment on above: Performed By: #### L [id number] ####[facility] [id number] [place] [address] [place] PAO2/PAO2 0.61 mmHg Normal [facility] Comment on above: Performed By: #### L [id number] ####[facility] [id number] [place] [address] [place] PEEP 8 cm H2O Normal [facility] Comment on above: Performed By: #### L [id number] ####[facility] [id number] [place] [address] [place] PF RATIO 350 mmHg Normal [facility] Comment on above: Performed By: #### L [id number] ####[facility] [id number] [place] [address] [facility] PH OF ARTERIAL BLOOD 7.42 Normal 7.35-7.45 [facility] Comment on above: Performed By: #### L [id number] ####[facility] [id number] [place] [address] [facility] Potassium [Moles/Vol] 3.7 mmol/L Normal 3.4-5.2 [facility] Comment on above: Performed By: #### L [id number] ####[facility] [id number] [place] [address] [facility] Sodium [Moles/Vol] 140 mmol/L Normal 136-146 [facility] Comment on above: Performed By: #### L [id number] ####[facility] [id number] [place] [address] [facility] TEMPERATURE 37.0 ???C [facility] Comment on above: Performed By: #### L [id number] ####[facility] [id number] [place] [address] [facility] TOTAL MINUTE VOLUME 7.7 L Normal [facility] Comment on above: Performed By: #### L [id number] ####[facility] [id number] [place] [address] [facility] ANESon 06-16-2025 ANES Normal [facility] ANES [facility] BASIC METABOLIC PANELon 05-20 Anion gap [Moles/Vol] 8 mmol/L Normal 7-20 [facility] Comment on above: Performed By: #### L [id number] ####[facility] [place] [address] Calcium [Mass/Vol] 7.6 mg/dL Low 8.6-10.3 [facility] Comment on above: Performed By: #### L [id number] ####[facility])[address] [place] [address] Chloride [Moles/Vol] 117 mmol/L High 98-107 [facility] Comment on above: Performed By: #### L [id number] ####[facility] ([facility])[address] [place] [address] CO2 [Moles/Vol] 23 mmol/L Normal 21-31 [facility] Comment on above: Performed By: #### L [id number] ####[facility] ([facility])[address] [place] [address] Creatinine [Mass/Vol] 0.99 mg/dL Normal 0.60-1.30 [facility] Comment on above: Performed By: #### L [id number] ####[facility] ([facility])[address] [place] [address] GLOMERULAR FILTRATION RATE ML/MIN/1.73 SQ M.PREDICTED 62.9 mL/min/1.73m*2 Normal >60.0 [facility] Comment on above: Result Comment: The [facility]???s estimated glomerular filtration rate (eGFR) will no [...] of individuals. Performed By: #### L [id number] ####[facility] [place] [address] Glucose [Mass/Vol] 155 mg/dL High 70-100 [facility] Comment on above: Performed By: #### L [id number] ####[facility] [place] [address] Potassium [Moles/Vol] 3.7 mmol/L Normal 3.5-5.1 [facility] Comment on above: Performed By: #### L [id number] ####[facility])[address] [place] [address] Sodium [Moles/Vol] 144 mmol/L Normal 136-145 [facility] Comment on above: Performed By: #### L [id number] ####[facility])[address] [place] [address] Urea nitrogen [Mass/Vol] 44 mg/dL High 7-25 [facility] Comment on above: Performed By: #### L [id number] ####[facility] (BEAKER)[address] [place] [address] UREA NITROGEN/CREATININE (MASS RATIO) IN SER/PLAS 44.4 Normal [facility] Comment on above: Performed By: #### L [id number] ####[facility] (BEAKER)[address] [place] [address] Anion gap [Moles/Vol] 9 mmol/L Normal 7-20 [facility] Comment on above: Performed By: #### L [id number] ####[facility] (BEAKER)[address] [place] [address] Calcium [Mass/Vol] 7.8 mg/dL Low 8.6-10.3 [facility] Comment on above: Performed By: #### L [id number] ####[facility] (BEAKER)[address] [place] [address] Chloride [Moles/Vol] 115 mmol/L High 98-107 [facility] Comment on above: Performed By: #### L [id number] ####[facility])[address] [place] [address] CO2 [Moles/Vol] 23 mmol/L Normal 21-31 [facility] Comment on above: Performed By: #### L [id number] ####[facility])[address] [place] [address] Creatinine [Mass/Vol] 1.05 mg/dL Normal 0.60-1.30 [facility] Comment on above: Performed By: #### L [id number] ####[facility] ([facility])[address] [place] [address] GLOMERULAR FILTRATION RATE ML/MIN/1.73 SQ M.PREDICTED 58.6 mL/min/1.73m*2 Low >60.0 [facility] Comment on above: Result Comment: The [facility]???s estimated glomerular filtration rate (eGFR) will no [...] of individuals. Performed By: #### L [id number] ####[facility] ([facility])[address] [place] [address] Glucose [Mass/Vol] 181 mg/dL High 70-100 [facility] Comment on above: Performed By: #### L [id number] ####[facility] ([facility])[address] [place] [address] Potassium [Moles/Vol] 3.8 mmol/L Normal 3.5-5.1 [facility] Comment on above: Performed By: #### L [id number] ####[facility] ([facility])[address] [place] [address] Sodium [Moles/Vol] 143 mmol/L Normal 136-145 [facility] Comment on above: Performed By: #### L [id number] ####[facility] ([facility])[address] [place] [address] Urea nitrogen [Mass/Vol] 44 mg/dL High 7-25 [facility] Comment on above: Performed By: #### L [id number] ####[facility] ([facility])[address] [place] [address] UREA NITROGEN/CREATININE (MASS RATIO) IN SER/PLAS 41.9 Normal [facility] Comment on above: Performed By: #### L [id number] ####[facility] [place] [address] CBC WITH AUTO DIFFERENTIALon 06-16-2025 Basophils (Bld) [#/Vol] 0.02 10*3/uL Normal 0.00-0.20 [facility] Comment on above: Performed By: #### L [id number] ####[facility] ([facility])[address] [place] [address] Basophils/100 WBC (Bld) 0.2 % Normal 0.0-1.0 [facility] Comment on above: Performed By: #### L [id number] ####[facility] [place] [address] Eosinophils (Bld) [#/Vol] 0.03 10*3/uL Normal 0.00-0.50 [facility] Comment on above: Performed By: #### L [id number] ####[facility] ([facility])[address] [place] [address] Eosinophils/100 WBC (Bld) 0.3 % Normal 0.0-6.0 [facility] Comment on above: Performed By: #### L [id number] ####[facility] [place] [address] Erythrocyte distribution width (RBC) [Ratio] 15.3 % High 11.5-15.0 [facility] Comment on above: Performed By: #### L [id number] ####[facility] [place] [address] ERYTHROCYTE MEAN CORPUSCULAR HEMOGLOBIN CONCENTRATION (G/DL) BY AUTOMATED 32.9 g/dL Normal 32.0-35.0 [facility] Comment on above: Performed By: #### L [id number] ####[facility] (BEAKER)[address] [place] [address] Hematocrit (Bld) [Volume fraction] 23.7 % Low 36.0-50.0 [facility] Comment on above: Performed By: #### L [id number] ####[facility] ([facility])[address] [place] [address] Hemoglobin (Bld) [Mass/Vol] 7.8 g/dL Low 12.0-17.0 [facility] Comment on above: Performed By: #### L [id number] ####[facility] ([facility])[address] [place] [address] Immature granulocytes (Bld) [#/Vol] 0.07 10*3/uL Normal 0.00-0.20 [facility] Comment on above: Performed By: #### L [id number] ####[facility] ([facility])[address] [place] [address] Immature granulocytes/100 WBC (Bld) 0.7 % Normal 0.0-1.0 [facility] Comment on above: Performed By: #### L [id number] ####[facility] ([facility])[address] [place] [address] IMMATURE PLATELET FRACTION % 8.4 % High 0.8-6.3 [facility] Comment on above: Performed By: #### L [id number] ####[facility] ([facility])[address] [place] [address] Lymphocytes (Bld) [#/Vol] 1.36 10*3/uL Normal 1.20-4.00 [facility] Comment on above: Performed By: #### L [id number] ####[facility] ([facility])[address] [place] [address] Lymphocytes/100 WBC (Bld) 13.5 % Low 20.0-45.0 [facility] Comment on above: Performed By: #### L [id number] ####[facility] (BEAKER)[address] [place] [address] MCH (RBC) [Entitic mass] 28.5 pg Normal 27.0-33.0 [facility] Comment on above: Performed By: #### L [id number] ####[facility] (BEAKER)[address] [place] [address] MCV (RBC) [Entitic vol] 86.5 fL Normal 82.0-98.0 [facility] Comment on above: Performed By: #### L [id number] ####[facility] (BEAKER)[address] [place] [address] Monocytes (Bld) [#/Vol] 0.83 10*3/uL Normal 0.10-1.00 [facility] Comment on above: Performed By: #### L [id number] ####[facility] (BEAKER)[address] [place] [address] Monocytes/100 WBC (Bld) 8.2 % Normal 5.0-12.0 [facility] Comment on above: Performed By: #### L [id number] ####[facility] (BEAKER)[address] [place] [address] Neutrophils (Bld) [#/Vol] 7.79 10*3/uL High 1.60-7.60 [facility] Comment on above: Performed By: #### L [id number] ####[facility] (BEAKER)[address] [place] [address] Neutrophils/100 WBC (Bld) 77.1 % High 40.0-72.0 [facility] Comment on above: Performed By: #### L [id number] ####[facility] (BEAKER)[address] [place] [address] NRBC (PER 100 WBCS) BY AUTOMATED COUNT 0.0 % Normal 0 [facility] Comment on above: Performed By: #### L [id number] ####[facility] (BEAKER)[address] [place] [address] PLATELETS (10*3/UL) IN BLOOD AUTOMATED COUNT 188 10*3/uL Normal 150-400 [facility] Comment on above: Performed By: #### L [id number] ####[facility] (BEAKER)[address] [place] [address] RBC (Bld) [#/Vol] 2.74 10*6/uL Low 3.80-5.70 [facility] Comment on above: Performed By: #### L [id number] ####[facility] ([facility])[address] [place] [address] WBC (Bld) [#/Vol] 10.10 10*3/uL Normal 4.00-10.60 [facility] Comment on above: Performed By: #### L [id number] ####[facility] (BEAKER)[address] [place] [address] CONSULTon 06-16-2025 CONSULT Normal [facility] CONSULT Normal [facility] CONSULT Normal [facility] CONSULT Normal [facility] HEMOGLOBIN AND HEMATOCRIT, B LOODon 06-16-2025 Hematocrit (Bld) [Volume fraction] 24.3 % Low 36.0-50.0 [facility] Comment on above: Performed By: #### L [id number] ####[facility] ([facility])[address] [place] [address] Hemoglobin (Bld) [Mass/Vol] 7.9 g/dL Low 12.0-17.0 [facility] Comment on above: Performed By: #### L [id number] ####[facility] (BEAKER)[address] [place] [address] Hematocrit (Bld) [Volume fraction] 25.7 % Low 36.0-50.0 [facility] Comment on above: Performed By: #### L [id number] ####[facility] ([facility])[address] [place], [place] [address] Hemoglobin (Bld) [Mass/Vol] 8.4 g/dL Low 12.0-17.0 [facility] Comment on above: Performed By: #### L [id number] ####[facility] ([facility])[address] [place], [place] [address] Hematocrit (Bld) [Volume fraction] 24.0 % Low 36.0-50.0 [facility] Comment on above: Performed By: #### L [id number] ####[facility] ([facility])[address] [place] [address] Hemoglobin (Bld) [Mass/Vol] 7.7 g/dL Low 12.0-17.0 [facility] Comment on above: Performed By: #### L [id number] ####[facility] ([facility])[address] [place] [address] HPon 06-16-2025 HP H&P reviewed. The pa theo was examined and there are no changes to the H&P. [facility] NURSNOTEon 06-16-2025 NURSNOTE Gave bedside report to ALFONSO Posadas [facility] OPNOTEon 06-16-2025 OPNOTE [facility] POCT GLUCOSE METER UNSOLICIT ED RESULTSon 06-16-2025 Glucose [Mass/Vol] 140 mg/dL High 70-105 [facility] Comment on above: Order Comment: Waive d Testing in the ED is performed under the ED CLIA certificate #[id number]. Result Comment: tcep [email or web address] Performed By: #### L [id number] ####[facility] ([facility])[address] [facility] [place] [address] Glucose [Mass/Vol] 174 mg/dL High 70-105 [facility] Comment on above: Order Comment: Waive d Testing in the ED is performed under the ED CLIA certificate #[id number]. Result Comment: tcep [email or web address] Performed By: #### L [id number] ####[facility] ([facility])[address] [place] [address] Glucose [Mass/Vol] 211 mg/dL High 70-105 [facility] Comment on above: Order Comment: Waive d Testing in the ED is performed under the ED CLIA certificate #[id number]. Result Comment: tcep [email or web address] Performed By: #### L [id number] ####[facility] ([facility])[address] [place] [address] Glucose [Mass/Vol] 215 mg/dL High 70-105 [facility] Comment on above: Order Comment: Waive d Testing in the ED is performed under the ED CLIA certificate #[id number]. Result Comment: ace [email or web address] Performed By: #### L [id number] ####[facility] (BEAKER)[address] [place] [address] PROTIME-INRon 06-16-2025 INR IN PPP BY COAGULATION ASSAY 1.33 High 0.90-1.10 [facility] Comment on above: Result Comment: ACCC P [...] CHEST 1995;[id number]. Performed By: #### L [id number] ####[facility] (BEAKER)[address] [place] [address] PROTHROMBIN TIME (PT) IN PPP BY COAGULATION ASSAY 16.5 Seconds High 12.3-14.8 [facility] Comment on above: Performed By: #### L [id number] ####[facility] (BEAKER)[address] [place] [address] PRU TESTon 06-16-2025 PRU TEST 368 PRU Normal 180-376 [facility] Comment on above: Performed By: #### P CEE ####[facility] ([facility])[address] [place] [address] ABG COMPLETE UNSOLICITED RES ULTSon 06-15-2025 A-ADO2 Normal [facility] Comment on above: Result Comment: C^In calculable Performed By: #### L [id number] ####[facility] [id number] [place] [address] [facility] Base excess Calc (Bld) [Moles/Vol] -7.2000 mmol/L Low -2.0-3.0 [facility] Comment on above: Performed By: #### L [id number] ####[facility] [id number] [place] [address] [facility] CALCIUM IONIZED, ARTERIAL 1.10 mmol/L Low 1.13-1.32 [facility] Comment on above: Performed By: #### L [id number] ####[facility] [id number] [place] [address] [facility] CARBOXYHEMOGLOBIN, ARTERIAL 1.2 % Normal [facility] Comment on above: Performed By: #### L [id number] ####[facility] [id number] [place] [address] [facility] Chloride [Moles/Vol] 115 mmol/L High 98-107 [facility] Comment on above: Performed By: #### L [id number] ####[facility] [id number] [place] [address] [place] CO2 (Bld) [Partial pressure] 39 mm[Hg] Normal 35-45 [facility] Comment on above: Performed By: #### L [id number] ####[facility] [id number] [place] [address] [facility] DEOXYGENATED HEMOGLOBIN, ARTERIAL 0.2 % Normal [facility] Comment on above: Performed By: #### L [id number] ####[facility] [id number] [place] [address] [facility] Glucose [Mass/Vol] 199 mg/dL High 65-95 [facility] Comment on above: Performed By: #### L [id number] ####[facility] [id number] [place] [address] [facility] HCO3 (Bld) [Moles/Vol] 18.8 mmol/L Low 21.0-28.0 [facility] Comment on above: Performed By: #### L [id number] ####[facility] [id number] [place] [address] [facility] Hematocrit (Bld) [Volume fraction] 24 % Low 37-50 [facility] Comment on above: Performed By: #### L [id number] ####[facility] [id number] [place] [address] [facility] Hemoglobin (Bld) [Mass/Vol] 8.1 g/dL Normal [facility] Comment on above: Performed By: #### L [id number] ####[facility] [id number] [place] [address] [facility] LACTATE, ARTERIAL 1.60 mmol/L High 0.36-1.39 [facility] Comment on above: Performed By: #### L [id number] ####[facility] [id number] [place] [address] [facility] METHEMOGLOBIN, ARTERIAL 0.8 % Normal 0.0-1.5 [facility] Comment on above: Performed By: #### L [id number] ####[facility] [id number] [place] [address] [facility] Oxygen (Bld) [Partial pressure] 226 mm[Hg] High 83-108 [facility] Comment on above: Performed By: #### L [id number] ####[facility] [id number] [place] [address] [facility] OXYGEN SATURATION (%) IN ARTERIAL BLOOD 99.8 % Normal 94.0-100.0 [facility] Comment on above: Performed By: #### L [id number] ####[facility] [id number] [place] [address] [facility] OXYGENATED HEMOGLOBIN IN ARTERIAL BLOOD 97.8 % High 94.0-97.0 [facility] Comment on above: Performed By: #### L [id number] ####[facility] [id number] [place] [address] [place] PAO2/PAO2 Normal [facility] Comment on above: Result Comment: C^In calculable Performed By: #### L [id number] ####[facility] [id number] [place] [address] [place] PF RATIO Normal [facility] Comment on above: Result Comment: C^In calculable Performed By: #### L [id number] ####[facility] [id number] [place] [address] [facility] PH OF ARTERIAL BLOOD 7.29 Low 7.35-7.45 [facility] Comment on above: Performed By: #### L [id number] ####[facility] [id number] [place] [address] [facility] Potassium [Moles/Vol] 4.4 mmol/L Normal 3.4-5.2 [facility] Comment on above: Performed By: #### L [id number] ####[facility] [id number] [place] [address] [facility] Sodium [Moles/Vol] 140 mmol/L Normal 136-146 [facility] Comment on above: Performed By: #### L [id number] ####[facility] [id number] [place] [address] [facility] TEMPERATURE 37.0 ???C [facility] Comment on above: Performed By: #### L [id number] ####[facility] [id number] [place] [address] [place] ANESon 06-15-2025 ANES Normal [facility] ANES [facility] BASIC METABOLIC PANELon 05-20 Anion gap [Moles/Vol] 9 mmol/L Normal 7-20 [facility] Comment on above: Performed By: #### L [id number] ####[facility] ([facility])[address] [place] [address] Calcium [Mass/Vol] 7.7 mg/dL Low 8.6-10.3 [facility] Comment on above: Performed By: #### L [id number] ####[facility] (BEAKER)[address] [place] [address] Chloride [Moles/Vol] 114 mmol/L High 98-107 [facility] Comment on above: Performed By: #### L [id number] ####[facility] ([facility])[address] [place] [address] CO2 [Moles/Vol] 23 mmol/L Normal 21-31 [facility] Comment on above: Performed By: #### L [id number] ####[facility] ([facility])[address] [place] [address] Creatinine [Mass/Vol] 1.03 mg/dL Normal 0.60-1.30 [facility] Comment on above: Performed By: #### L [id number] ####[facility] ([facility])[address] [place] [address] GLOMERULAR FILTRATION RATE ML/MIN/1.73 SQ M.PREDICTED 60.0 mL/min/1.73m*2 Low >60.0 [facility] Comment on above: Result Comment: The [facility]???s estimated glomerular filtration rate (eGFR) will no [...] of individuals. Performed By: #### L [id number] ####[facility] [place] [address] Glucose [Mass/Vol] 155 mg/dL High 70-100 [facility] Comment on above: Performed By: #### L [id number] ####[facility] ([facility])[address] [place] [address] Potassium [Moles/Vol] 4.2 mmol/L Normal 3.5-5.1 [facility] Comment on above: Performed By: #### L [id number] ####[facility] ([facility])[address] [place] [address] Sodium [Moles/Vol] 142 mmol/L Normal 136-145 [facility] Comment on above: Performed By: #### L [id number] ####[facility] ([facility])[address] [place] [address] Urea nitrogen [Mass/Vol] 41 mg/dL High 7-25 [facility] Comment on above: Performed By: #### L [id number] ####[facility] ([facility])[address] [place] [address] UREA NITROGEN/CREATININE (MASS RATIO) IN SER/PLAS 39.8 Normal [facility] Comment on above: Performed By: #### L [id number] ####[facility] ([facility])[address] [place] [address] Anion gap [Moles/Vol] 9 mmol/L Normal 7-20 [facility] Comment on above: Performed By: #### L [id number] ####[facility] ([facility])[address] [place] [address] Calcium [Mass/Vol] 7.5 mg/dL Low 8.6-10.3 [facility] Comment on above: Performed By: #### L [id number] ####[facility] ([facility])[address] [place] [address] Chloride [Moles/Vol] 114 mmol/L High 98-107 [facility] Comment on above: Performed By: #### L [id number] ####[facility] ([facility])[address] [place] [address] CO2 [Moles/Vol] 23 mmol/L Normal 21-31 [facility] Comment on above: Performed By: #### L [id number] ####[facility] ([facility])[address] [place] [address] Creatinine [Mass/Vol] 1.10 mg/dL Normal 0.60-1.30 [facility] Comment on above: Performed By: #### L [id number] ####[facility] ([facility])[address] [place] [address] GLOMERULAR FILTRATION RATE ML/MIN/1.73 SQ M.PREDICTED 55.4 mL/min/1.73m*2 Low >60.0 [facility] Comment on above: Result Comment: The [facility]???s estimated glomerular filtration rate (eGFR) will no [...] of individuals. Performed By: #### L [id number] ####[facility] ([facility])[address] [place] [address] Glucose [Mass/Vol] 153 mg/dL High 70-100 [facility] Comment on above: Performed By: #### L [id number] ####[facility] ([facility])[address] [place] [address] Potassium [Moles/Vol] 4.3 mmol/L Normal 3.5-5.1 [facility] Comment on above: Performed By: #### L [id number] ####[facility] ([facility])[address] [place] [address] Sodium [Moles/Vol] 142 mmol/L Normal 136-145 [facility] Comment on above: Performed By: #### L [id number] ####[facility] ([facility])[address] [place] [address] Urea nitrogen [Mass/Vol] 41 mg/dL High 7-25 [facility] Comment on above: Performed By: #### L [id number] ####[facility] [place] [address] UREA NITROGEN/CREATININE (MASS RATIO) IN SER/PLAS 37.3 Normal [facility] Comment on above: Performed By: #### L [id number] ####[facility] ([facility])[address] [place] [address] Anion gap [Moles/Vol] 11 mmol/L Normal 7-20 [facility] Comment on above: Performed By: #### L [id number] ####[facility] ([facility])[address] [place] [address] Calcium [Mass/Vol] 8.8 mg/dL Normal 8.6-10.3 [facility] Comment on above: Performed By: #### L [id number] ####[facility] ([facility])[address] [place] [address] Chloride [Moles/Vol] 109 mmol/L High 98-107 [facility] Comment on above: Performed By: #### L [id number] ####[facility] ([facility])[address] [place] [address] CO2 [Moles/Vol] 26 mmol/L Normal 21-31 [facility] Comment on above: Performed By: #### L [id number] ####[facility] ([facility])[address] [place] [address] Creatinine [Mass/Vol] 1.01 mg/dL Normal 0.60-1.30 [facility] Comment on above: Performed By: #### L [id number] ####[facility] ([facility])[address] [place] [address] GLOMERULAR FILTRATION RATE ML/MIN/1.73 SQ M.PREDICTED 61.4 mL/min/1.73m*2 Normal >60.0 [facility] Comment on above: Result Comment: The [facility]???s estimated glomerular filtration rate (eGFR) will no [...] of individuals. Performed By: #### L [id number] ####[facility] ([facility])[address] [place] [address] Glucose [Mass/Vol] 136 mg/dL High 70-100 [facility] Comment on above: Performed By: #### L [id number] ####[facility] ([facility])[address] [place] [address] Potassium [Moles/Vol] 4.6 mmol/L Normal 3.5-5.1 [facility] Comment on above: Performed By: #### L [id number] ####[facility] [place] [address] Sodium [Moles/Vol] 141 mmol/L Normal 136-145 [facility] Comment on above: Performed By: #### L [id number] ####[facility] ([facility])[address] [place] [address] Urea nitrogen [Mass/Vol] 36 mg/dL High 7-25 [facility] Comment on above: Performed By: #### L [id number] ####[facility] ([facility])[address] [place] [address] UREA NITROGEN/CREATININE (MASS RATIO) IN SER/PLAS 35.6 Normal [facility] Comment on above: Performed By: #### L [id number] ####[facility] ([facility])[address] [place] [address] Basophils Auto (Bld) [#/Vol] Ordered By: Abdoulaye Enrique on 06-15-2025 Basophils (Bld) [#/Vol] 0.0 10 3/uL 0.0-0.1 [facility] Basophils/100 WBC Auto (Bld) Ordered By: Abdoulaye Marker on 06-15-2025 Basophils/100 WBC (Bld) 0.2 % 0.2-2.0 [facility] CBC WITH AUTO DIFFERENTIALon 06-15-2025 Basophils (Bld) [#/Vol] 0.04 10*3/uL Normal 0.00-0.20 [facility] Comment on above: Performed By: #### L [id number] ####[facility] ([facility])[address] [facility] [place] [address] Basophils/100 WBC (Bld) 0.4 % Normal 0.0-1.0 [facility] Comment on above: Performed By: #### L [id number] ####[facility] ([facility])[address] [place] [address] Eosinophils (Bld) [#/Vol] 0.05 10*3/uL Normal 0.00-0.50 [facility] Comment on above: Performed By: #### L [id number] ####[facility] ([facility])[address] [facility] [place] [address] Eosinophils/100 WBC (Bld) 0.5 % Normal 0.0-6.0 [facility] Comment on above: Performed By: #### L [id number] ####[facility] ([facility])[address] [place] [address] Erythrocyte distribution width (RBC) [Ratio] 14.9 % Normal 11.5-15.0 [facility] Comment on above: Performed By: #### L [id number] ####[facility] ([facility])[address] [facility] [place] [address] ERYTHROCYTE MEAN CORPUSCULAR HEMOGLOBIN CONCENTRATION (G/DL) BY AUTOMATED 31.8 g/dL Low 32.0-35.0 [facility] Comment on above: Performed By: #### L [id number] ####[facility] ([facility])[address] [facility] [place] [address] Hematocrit (Bld) [Volume fraction] 32.1 % Low 36.0-50.0 [facility] Comment on above: Performed By: #### L [id number] ####[facility] ([facility])[address] [place] [address] Hemoglobin (Bld) [Mass/Vol] 10.2 g/dL Low 12.0-17.0 [facility] Comment on above: Performed By: #### L [id number] ####[facility] ([facility])[address] [place] [address] Immature granulocytes (Bld) [#/Vol] 0.05 10*3/uL Normal 0.00-0.20 [facility] Comment on above: Performed By: #### L [id number] ####[facility] ([facility])[address] [place] [address] Immature granulocytes/100 WBC (Bld) 0.5 % Normal 0.0-1.0 [facility] Comment on above: Performed By: #### L [id number] ####[facility] ([facility])[address] [place] [address] IMMATURE PLATELET FRACTION % 12.3 % High 0.8-6.3 [facility] Comment on above: Performed By: #### L [id number] ####[facility] ([facility])[address] [place] [address] Lymphocytes (Bld) [#/Vol] 2.29 10*3/uL Normal 1.20-4.00 [facility] Comment on above: Performed By: #### L [id number] ####[facility] ([facility])[address] [place] [address] Lymphocytes/100 WBC (Bld) 21.1 % Normal 20.0-45.0 [facility] Comment on above: Performed By: #### L [id number] ####[facility] [place] [address] MCH (RBC) [Entitic mass] 27.9 pg Normal 27.0-33.0 [facility] Comment on above: Performed By: #### L [id number] ####[facility] ([facility])[address] [place] [address] MCV (RBC) [Entitic vol] 87.9 fL Normal 82.0-98.0 [facility] Comment on above: Performed By: #### L [id number] ####[facility] ([facility])[address] [place] [address] Monocytes (Bld) [#/Vol] 0.58 10*3/uL Normal 0.10-1.00 [facility] Comment on above: Performed By: #### L [id number] ####[facility] ([facility])[address] [place] [address] Monocytes/100 WBC (Bld) 5.3 % Normal 5.0-12.0 [facility] Comment on above: Performed By: #### L [id number] ####[facility] ([facility])[address] [place] [address] Neutrophils (Bld) [#/Vol] 7.84 10*3/uL High 1.60-7.60 [facility] Comment on above: Performed By: #### L [id number] ####[facility] ([facility])[address] [place] [address] Neutrophils/100 WBC (Bld) 72.2 % High 40.0-72.0 [facility] Comment on above: Performed By: #### L [id number] ####[facility] ([facility])[address] [place] [address] NRBC (PER 100 WBCS) BY AUTOMATED COUNT 0.0 % Normal 0 [facility] Comment on above: Performed By: #### L [id number] ####[facility] ([facility])[address] [place] [address] PLATELETS (10*3/UL) IN BLOOD AUTOMATED COUNT 217 10*3/uL Normal 150-400 [facility] Comment on above: Performed By: #### L [id number] ####[facility] ([facility])[address] [place] [address] RBC (Bld) [#/Vol] 3.65 10*6/uL Low 3.80-5.70 [facility] Comment on above: Performed By: #### L [id number] ####[facility] ([facility])[address] [place] [address] WBC (Bld) [#/Vol] 10.85 10*3/uL High 4.00-10.60 [facility] Comment on above: Performed By: #### L [id number] ####[facility] ([facility])[address] [place] [address] CONSULTon 06-15-2025 CONSULT Normal [facility] CONSULT Normal [facility] CTA ABDOMEN PELVIS W IV CONT RASTon 06-15-2025 CTA ABDOMEN PELVIS W IV CONTRAST Invalid Interpretation Code [facility] Eosinophils/100 WBC Auto (Bl d)Ordered By: Abdoulaye Marker on 06-15-2025 Eosinophils/100 WBC (Bld) 0.9 % 0.9-7.0 [facility] Erythrocyte distribution wid th Auto (RBC) [Ratio]Ordered By: Abdoulaye Marker on 06-15-2025 Erythrocyte distribution width (RBC) [Ratio] 15.2 % High 11.0-15.0 [facility] Globulin Calc (S) [Mass/Vol] Ordered By: Ellen Crabtree on 06-15-2025 Globulin (S) [Mass/Vol] 4.3 g/dL [facility] Glomerular filtration rate ( GFR) estimation in non- AmericanOrdered By: Ellen Crabtree on 06-15-2025 GFR/1.73 sq M.predicted among non-blacks MDRD (S/P/Bld) [Vol rate/Area] mL/min/{1.73_m2} >=60 mL/min/1.7 3m 2 [facility] HEMOGLOBIN AND HEMATOCRIT, B LOODon 06-15-2025 Hematocrit (Bld) [Volume fraction] 25.0 % Low 36.0-50.0 [facility] Comment on above: Performed By: #### L [id number] ####[facility] ([facility])[address] [place] [address] Hemoglobin (Bld) [Mass/Vol] 8.1 g/dL Low 12.0-17.0 [facility] Comment on above: Performed By: #### L [id number] ####[facility] ([facility])[address] [place] [address] Hematocrit (Bld) [Volume fraction] 26.5 % Low 36.0-50.0 [facility] Comment on above: Performed By: #### L [id number] ####[facility] ([facility])[address] [place] [address] Hemoglobin (Bld) [Mass/Vol] 8.7 g/dL Low 12.0-17.0 [facility] Comment on above: Performed By: #### L [id number] ####[facility] ([facility])[address] [place] [address] Hematocrit (Bld) [Volume fraction] 30.0 % Low 36.0-50.0 [facility] Comment on above: Performed By: #### L [id number] ####[facility] ([facility])[address] [place] [address] Hemoglobin (Bld) [Mass/Vol] 9.5 g/dL Low 12.0-17.0 [facility] Comment on above: Performed By: #### L [id number] ####[facility] ([facility])[address] [place] [address] HPon 06-15-2025 HP Normal [facility] HP Normal [facility] Hematocrit Auto (Bld) [Volum e fraction]Ordered By: Abdoulaye Marker on 06-15-2025 Hematocrit (Bld) [Volume fraction] 20.4 % Critically low 42.0-54.0 [facility] Comment on above: RESULTS CALLED TO MAGALY KENNY RN @BY Danica Ramesh at 0221 Hemoglobin [Mass/volume] in BloodOrdered By: Abdoulaye Marker on 06-15-2025 Hemoglobin (Bld) [Mass/Vol] 6.3 g/dL Critically low 14.0-18.0 [facility] Comment on above: RESULTS CALLED TO LETY KENNY RN @BY Danica Ramesh at 0221 INR in Platelet poor plasma by Coagulation assayOrdered By: Abdoulaye Marker on 06-15-2025 INR Coag (PPP) [Relative time] 1.09 {INR} [facility] Comment on above: DESIRED INR:2.0-3.0 CONDITIONS NOT LISTED BELOW2.5-3.5 FOR PROSTHETIC HEART VALVE REPLACEMENT2.5-3.5 RECURRENT THROMBOSIS Laboratory - Chemistry and C hemistry - challengeOrdered By: Abdoulaye Marker on 06-15-2025 Lactate [Moles/Vol] 0.8 mmol/L 0.4-2.0 [facility] Laboratory - Chemistry and C hemistry - challengeOrdered By: Ellen Crabtree on 06-15-2025 Albumin [Mass/Vol] 2.6 g/dL Low 3.4-5.0 [facility] ALP [Catalytic activity/Vol] 162 U/L High 46-116 [facility] ALT [Catalytic activity/Vol] 11 U/L Low 16-63 [facility] AST [Catalytic activity/Vol] 14 U/L Low 15-37 [facility] Bilirubin [Mass/Vol] 0.4 mg/dL 0.2-1.0 [facility] Calcium [Mass/Vol] 8.9 mg/dL 8.5-10.1 [facility] Chloride [Moles/Vol] 110 mmol/L High 98-107 [facility] CO2 [Moles/Vol] 26.3 mmol/L 21.0-32.0 [facility] Creatinine [Mass/Vol] 1.14 mg/dL 0.70-1.30 [facility] GFR/1.73 sq M.predicted MDRD (S/P/Bld) [Vol rate/Area] mL/min/{1.73_m2} >=60 mL/min/1.7 3m 2 [facility] Glucose [Mass/Vol] 143 mg/dL High 74-106 [facility] Potassium [Moles/Vol] 4.3 mmol/L 3.5-5.1 [facility] Protein [Mass/Vol] 6.9 g/dL 6.4-8.2 [facility] Sodium [Moles/Vol] 144 mmol/L 136-145 [facility] Urea nitrogen [Mass/Vol] 32.0 mg/dL High 7.0-18.0 [facility] Urea nitrogen/Creatinine [Mass ratio] 28.1 mg/mg [facility] Laboratory - Hematology and Cell countsOrdered By: Abdoulaye Marker on 06-15-2025 Immature granulocytes/100 WBC (Bld) 0.3 % 0.0-0.5 [facility] Leukocytes [#/volume] correc jacqueline for nucleated erythrocytes in Blood by Automated counOrdered By: Abdoulaye Marker on 06-15-2025 WBC corrected for nucl RBC Auto (Bld) [#/Vol] 8.9 10 3/uL 4.0-11.0 [facility] Lymphocytes Auto (Bld) [#/Vo l]Ordered By: Abdoulaye Marker on 06-15-2025 Lymphocytes (Bld) [#/Vol] 1.1 10 3/uL Low 1.2-3.8 [facility] Lymphocytes/100 WBC Auto (Bl d)Ordered By: Abdoulaye Marker on 06-15-2025 Lymphocytes/100 WBC (Bld) 12.3 % Low 20.5-60.0 [facility] MAGNESIUMon 06-15-2025 Magnesium [Mass/Vol] 1.7 mg/dL Low 1.9-2.7 [facility] Comment on above: Performed By: #### L [id number] ####[facility] ([facility])[address] [place] [address] Magnesium [Mass/Vol] 1.9 mg/dL Normal 1.9-2.7 [facility] Comment on above: Performed By: #### L [id number] ####[facility] ([facility])[address] [place] [address] MCH Auto (RBC) [Entitic mass ]Ordered By: Abdoulaye Marker on 06-15-2025 MCH (RBC) [Entitic mass] 28.0 pg 25.9-34.0 [facility] MCHC Auto (RBC) [Mass/Vol]Or dered By: Abdoulaye Marker on 06-15-2025 MCHC (RBC) [Mass/Vol] 30.9 g/dL 29.9-35.2 [facility] MCV Auto (RBC) [Entitic vol] Ordered By: Abdoulaye Marker on 06-15-2025 MCV (RBC) [Entitic vol] 90.7 fL 80.0-94.0 [facility] Monocytes Auto (Bld) [#/Vol] Ordered By: Abdoulaye Marker on 06-15-2025 Monocytes (Bld) [#/Vol] 0.5 10 3/uL 0.3-0.8 [facility] Monocytes/100 WBC Auto (Bld) Ordered By: Abdoulaye Marker on 06-15-2025 Monocytes/100 WBC (Bld) 5.3 % 1.7-12.0 [facility] NURSNOTEon 06-15-2025 NURSNOTE Bedside report to [facility] RN [facility] End[facility] staff out of room Normal [facility] Neutrophils Auto (Bld) [#/Vo l]Ordered By: Abdoulaye Marker on 06-15-2025 Neutrophils (Bld) [#/Vol] 7.2 10 3/uL High 1.4-6.5 [facility] Neutrophils/100 WBC Auto (Bl d)Ordered By: Abdoulaye Marker on 06-15-2025 Neutrophils/100 WBC (Bld) 81.0 % High 43.0-75.0 [facility] No Panel InformationOrdered By: Abdoulaye Marker on 06-15-2025 Eosinophils # (Auto) 0.1 10 3/uL 0.0-0.7 [facility] Immature Granulocyte # (Auto) 0.03 10 3/uL 0.00-0.03 [facility] 0.8 mmol/L 0.4-2.0 [facility] 0.1 10 3/uL 0.0-0.7 [facility] 0.03 10 3/uL 0.00-0.03 [facility] 0.3 % 0.0-0.5 [facility] Troponin I High Sensitivity 8.4 pg/mL 4.0-76.1 [facility] Comment on above: CUT-OFF POINTS HAVE [...] IN CONJUNCTIONWITH OTHER DIAGNOSTIC AND CLINICAL INFORMATION. 8.4 pg/mL 4.0-76.1 [facility] No Panel InformationOrdered By: Ellen Crabtree on 06-15-2025 2.6 g/dL Low 3.4-5.0 [facility] 162 U/L High 46-116 [facility] 11 U/L Low 16-63 [facility] 14 U/L Low 15-37 [facility] 28.1 [facility] 32.0 mg/dL High 7.0-18.0 [facility] 8.9 mg/dL 8.5-10.1 [facility] 110 mmol/L High 98-107 [facility] 26.3 mmol/L 21.0-32.0 [facility] 1.14 mg/dL 0.70-1.30 [facility] >60 >=60 mL/min/1.7 3m 2 [facility] 143 mg/dL High 74-106 [facility] 4.3 mmol/L 3.5-5.1 [facility] 144 mmol/L 136-145 [facility] 0.4 mg/dL 0.2-1.0 [facility] 6.9 g/dL 6.4-8.2 [facility] OPNOTEon 06-15-2025 OPNOTE Normal [facility] PHOSPHORUSon 06-15-2025 Magnesium [Mass/Vol] 2.8 mg/dL Normal 2.5-5.0 [facility] Comment on above: Performed By: #### L [id number] ####[facility] ([facility])[address] [place] [address] POCT GLUCOSE METER UNSOLICIT ED RESULTSon 06-15-2025 Glucose [Mass/Vol] 157 mg/dL High 70-105 [facility] Comment on above: Order Comment: Waive d Testing in the ED is performed under the ED CLIA certificate #[id number]. Result Comment: [email or web address] Performed By: #### L [id number] ####[facility] ([employer])[address] [place] [address] Glucose [Mass/Vol] 173 mg/dL High 70-105 [facility] Comment on above: Order Comment: Waive d Testing in the ED is performed under the ED CLIA certificate #[id number]. Result Comment: [email or web address] Performed By: #### L [id number] ####[facility] ([employer])[address] [place] [address] PROTIME-INRon 06-15-2025 INR IN PPP BY COAGULATION ASSAY 1.35 High 0.90-1.10 [facility] Comment on above: Result Comment: ACCC P [...] CHEST 1995;[id number]. Performed By: #### L [id number] ####[facility] ([employer])[address] [place] [address] PROTHROMBIN TIME (PT) IN PPP BY COAGULATION ASSAY 16.7 Seconds High 12.3-14.8 [facility] Comment on above: Performed By: #### L [id number] ####[facility] ([facility])[address] [place] [address] Platelet mean volume Auto (B ld) [Entitic vol]Ordered By: Abdoulaye Marker on 06-15-2025 Platelet mean volume (Bld) [Entitic vol] 13.2 fL 9.5-13.5 [facility] Platelets Auto (Bld) [#/Vol] Ordered By: Abdoulaye Marker on 06-15-2025 Platelets (Bld) [#/Vol] 148 10 3/uL Low 150-450 [facility] Prothrombin time (PT)Ordered By: Abdoulaye Marker on 06-15-2025 PT Coag (PPP) [Time] 11.5 s 9.0-11.6 [facility] RBC Auto (Bld) [#/Vol]Ordere d By: Abdoulaye Marker on 06-15-2025 RBC (Bld) [#/Vol] 2.25 10 6/uL Low 4.70-6.10 [facility] Serum or plasma albumin/glob ulin mass ratioOrdered By: Ellen Crabtree on 06-15-2025 Albumin/Globulin [Mass ratio] 0.6 {ratio} [facility] Serum or plasma anion gap de terminationOrdered By: Ellen Crabtree on 06-15-2025 Anion gap [Moles/Vol] 12.0 mmol/L [facility] TRIGLYCERIDESon 06-15-2025 FASTING? unknown Normal [facility] Comment on above: Order Comment: Monit or triglycerides while patient is on propofol. Consult Nutrition if greater than 500 mg/dL. Performed By: #### L [id number] ####[facility] ([facility])[address] [place] [address] Magnesium [Mass/Vol] 125 mg/dL Normal <150 [facility] Comment on above: Order Comment: Monit or triglycerides while patient is on propofol. Consult Nutrition if greater than 500 mg/dL. Result Comment: TRIG LYCERIDE REFERENCE RANGE:20 YEARS AND OLDER CARDIOVASCULAR RISKLESS THAN 150 mg/dL LOW [id number] TO 199 mg/dL BORDERLINE MGDO274 mg/dL AND GREATER HIGH RISK Performed By: #### L [id number] ####[facility] (ANITA)[address] [place] [address] TYPE AND SCREENon 06-15-2025 AB SCREEN Negative Normal [facility] Comment on above: Performed By: #### L [id number] ####[facility], ABO group Nom (Bld) A Normal [facility] Comment on above: Performed By: #### L [id number] ####[facility], RH TYPE IN BLOOD Negative Normal [facility] Comment on above: Performed By: #### L [id number] ####[facility], Follow-Upon 06-12-2025 Follow-Up [facility] Orders Onlyon 06-06-2025 Orders Only Normal [facility] ANESon 06-05-2025 ANES Normal [facility] HPon 06-05-2025 HP [facility] NURSNOTEon 06-05-2025 NURSNOTE [facility] NURSNOTE CHG wipes and betadi ne nasal swabs completed. Normal [facility] Orders Onlyon 06-05-2025 Orders Only [facility] Orders Onlyon 05-30-2025 Orders Only [facility] Basophils Auto (Bld) [#/Vol] Ordered By: Ellen Crabtree on 05-29-2025 Basophils (Bld) [#/Vol] 0.0 10 3/uL 0.0-0.1 [facility] Basophils/100 WBC Auto (Bld) Ordered By: Ellen Crabtree on 05-29-2025 Basophils/100 WBC (Bld) 0.6 % 0.2-2.0 [facility] Eosinophils/100 WBC Auto (Bl d)Ordered By: Ellen Crabtree on 05-29-2025 Eosinophils/100 WBC (Bld) 6.9 % 0.9-7.0 [facility] Erythrocyte distribution wid th Auto (RBC) [Ratio]Ordered By: Ellen Crabtere on 05-29-2025 Erythrocyte distribution width (RBC) [Ratio] 14.4 % 11.0-15.0 [facility] Glomerular filtration rate ( GFR) estimation in non- AmericanOrdered By: Lora Lim on 05-29-2025 GFR/1.73 sq M.predicted among non-blacks MDRD (S/P/Bld) [Vol rate/Area] mL/min/{1.73_m2} >=60 mL/min/1.7 2 [facility] Hematocrit Auto (Bld) [Volum e fraction]Ordered By: Ellen Crabtree on 05-29-2025 Hematocrit (Bld) [Volume fraction] 37.5 % Low 42.0-54.0 [facility] Hemoglobin [Mass/volume] in BloodOrdered By: Ellen Crabtree on 05-29-2025 Hemoglobin (Bld) [Mass/Vol] 11.5 g/dL Low 14.0-18.0 [facility] Laboratory - Chemistry and C hemistry - challengeOrdered By: Lora Lim on 05-29-2025 Calcium [Mass/Vol] 9.4 mg/dL 8.5-10.1 [facility] Chloride [Moles/Vol] 105 mmol/L 98-107 [facility] CO2 [Moles/Vol] 26.8 mmol/L 21.0-32.0 [facility] Creatinine [Mass/Vol] 1.16 mg/dL 0.70-1.30 [facility] GFR/1.73 sq M.predicted MDRD (S/P/Bld) [Vol rate/Area] mL/min/{1.73_m2} >=60 mL/min/1.7 3m 2 [facility] Glucose [Mass/Vol] 94 mg/dL 74-106 [facility] Potassium [Moles/Vol] 3.7 mmol/L 3.5-5.1 [facility] Sodium [Moles/Vol] 140 mmol/L 136-145 [facility] Urea nitrogen [Mass/Vol] 18.0 mg/dL 7.0-18.0 [facility] Urea nitrogen/Creatinine [Mass ratio] 15.5 mg/mg [facility] Laboratory - Hematology and Cell countsOrdered By: Ellen Crabtree on 05-29-2025 Immature granulocytes/100 WBC (Bld) 0.3 % 0.0-0.5 [facility] Leukocytes [#/volume] correc jacqueline for nucleated erythrocytes in Blood by Automated counOrdered By: Ellen Crabtree on 05-29-2025 WBC corrected for nucl RBC Auto (Bld) [#/Vol] 6.8 10 3/uL 4.0-11.0 [facility] Lymphocytes Auto (Bld) [#/Vo l]Ordered By: Ellen Crabtree on 05-29-2025 Lymphocytes (Bld) [#/Vol] 1.6 10 3/uL 1.2-3.8 [facility] Lymphocytes/100 WBC Auto (Bl d)Ordered By: Ellen Crabtree on 05-29-2025 Lymphocytes/100 WBC (Bld) 22.9 % 20.5-60.0 [facility] MCH Auto (RBC) [Entitic mass ]Ordered By: Ellen Crabtree on 05-29-2025 MCH (RBC) [Entitic mass] 27.4 pg 25.9-34.0 [facility] MCHC Auto (RBC) [Mass/Vol]Or dered By: Ellen Crabtree on 05-29-2025 MCHC (RBC) [Mass/Vol] 30.7 g/dL 29.9-35.2 [facility] MCV Auto (RBC) [Entitic vol] Ordered By: Ellen Crabtree on 05-29-2025 MCV (RBC) [Entitic vol] 89.3 fL 80.0-94.0 [facility] Monocytes Auto (Bld) [#/Vol] Ordered By: Ellen Crabtree on 05-29-2025 Monocytes (Bld) [#/Vol] 0.4 10 3/uL 0.3-0.8 [facility] Monocytes/100 WBC Auto (Bld) Ordered By: Ellen Crabtree on 05-29-2025 Monocytes/100 WBC (Bld) 6.5 % 1.7-12.0 [facility] Neutrophils Auto (Bld) [#/Vo l]Ordered By: Ellen Crabtree on 05-29-2025 Neutrophils (Bld) [#/Vol] 4.3 10 3/uL 1.4-6.5 [facility] Neutrophils/100 WBC Auto (Bl d)Ordered By: Ellen Crabtree on 05-29-2025 Neutrophils/100 WBC (Bld) 62.8 % 43.0-75.0 [facility] No Panel InformationOrdered By: Ellen Crabtree on 05-29-2025 Eosinophils # (Auto) 0.5 10 3/uL 0.0-0.7 [facility] Immature Granulocyte # (Auto) 0.02 10 3/uL 0.00-0.03 [facility] 0.5 10 3/uL 0.0-0.7 [facility] 0.02 10 3/uL 0.00-0.03 [facility] 0.3 % 0.0-0.5 [facility] No Panel InformationOrdered By: Lora Lim on 05-29-2025 15.5 [facility] 18.0 mg/dL 7.0-18.0 [facility] 9.4 mg/dL 8.5-10.1 [facility] 105 mmol/L 98-107 [facility] 26.8 mmol/L 21.0-32.0 [facility] 1.16 mg/dL 0.70-1.30 [facility] >60 >=60 mL/min/1.7 3m 2 [facility] 94 mg/dL 74-106 [facility] 3.7 mmol/L 3.5-5.1 [facility] 140 mmol/L 136-145 [facility] Platelet mean volume Auto (B ld) [Entitic vol]Ordered By: Ellen Crabtree on 05-29-2025 Platelet mean volume (Bld) [Entitic vol] 12.8 fL 9.5-13.5 [facility] Platelets Auto (Bld) [#/Vol] Ordered By: Ellen Crabtree on 05-29-2025 Platelets (Bld) [#/Vol] 298 10 3/uL 150-450 [facility] RBC Auto (Bld) [#/Vol]Ordere d By: Ellen Crabtree on 08-11-2025 RBC (Bld) [#/Vol] 4.20 10 6/uL Low 4.70-6.10 [facility] Serum or plasma anion gap de terminationOrdered By: Lora Lim on 05-29-2025 Anion gap [Moles/Vol] 11.9 mmol/L [facility] Orders Onlyon 04-25-2025 Orders Only Normal [facility] Ambulatory Visit Summaryon 0 04-24-2025 Ambulatory [...] Follow-Up Appointments Thursday 10:00 AM EDT With: RODRI KHAN, LYN Crum Where: [facility] [address] [place] [address]- Medications What How Much When Instructions Unchanged [...] signed up for this yet, please contact [employer] at [phone] to get signed up today. Language Information Language assistance services are available as needed. Normal [facility] Documentationon 04-14-2025 Documentation Normal [facility] SEGMENTAL BLOOD PRESSUREon 0 04-11-2025 [place] [address] Cardiology Report Signed Patient: ALISIA CORREA MR#: [id number] : 1960 Acct:[id number] Age/Sex: 64 / M ADM Date: 04/11/25 Loc: CARD Attending Dr: Heidy Marin M.D. Ordering Physician: Heidy Marin M.D. Date of Service: 04/11/25 Procedure(s): CA segmental UE or LE MARIXA Accession Number(s): [id number] cc: ELLEN CRABTREE ; Heidy Marin M.D. The [facility] Test Date: 2025-04-11 Pat Name: ALISIA CORREA Department: Room: - Gender: Male Management Coordinator: : 1960 Requested By: 1892 Order Number: [id number] Reading MD: ISMAEL JC M.D. Interpretive Statements [...] M.D. Dictated By: ISMAEL JC Signed By: 04/11/254 04/11/252213 DD/ 1548 TD/TT: [employer] Supervisor: [facility] Radiology, Radiologi MD mercedes - 04/11/2025 [place] [address] Cardiology Report Signed Patient: ALISIA CORREA MR#: [id number] : 1960 Acct:[id number] Age/Sex: 64 / M ADM Date: 04/11/25 Loc: CARD Attending Dr: Heidy Marin M.D. Ordering Physician: Heidy Marin M.D. Date of Service: 04/11/25 Procedure(s): CA segmental UE or LE MARIXA Accession Number(s): [id number] cc: ELLEN CRABTREE ; Heidy Marin M.D. [facility] Test Date: 2025-04-11 Pat Name: ALISIA CORREA Department: Room: - Gender: Male Management Coordinator: : 1960 Requested By: 1892 Order Number: [id number] Reading MD: ISMAEL JC M.D. Interpretive Statements [...] M.D. Dictated By: ISMAEL JC Signed By: 04/11/254 04/11/25 2214 DD/ 1548 TD/TT: [employer] Supervisor: [facility] Radiology Study observation (narrative) [facility] SEGMENTAL BLOOD PRESSUREOrde red By: Radiologist Radiology on 04-11-2025 [facility] [employer] Work Phone: 36on 04-07-2025 36 Per pt's request fleipe nt monitor order was faxed to hospital. Confirmed 04/07/25 at 9:24 [facility] 36 Order was faxed to n afsaneh listed. Normal [facility] 36 [facility] 36on 04-05-2025 36 Vm is full, unable t o leave msg [facility] Telemedicineon 04-05-2025 Telemedicine Normal [place] [facility] CT BRAIN WO CONTon 5 CT BRAIN [...] Samano MD on 04/02/2025 5:17 PM Normal [facility] Ambulatory Visit Summaryon 0 03-31-2025 Ambulatory [...] LYN MACE PA-C Where: [facility] [address] [place] [address]- Thursday 10:00 AM EDT With: LYN MACE PA-C Where: [facility] [address] [facility] [place] [address]- Medications What How Much When Instructions Unchanged [...] for choosing us for your care. Normal [facility] FL SWALLOW MOTILITY FUNCTION on 03-29-2025 FL [...] Norris DO on 03/29/2025 2:13 PM Normal [facility] Orders Onlyon 03-15-2025 Orders Only [id number] Lina Correa 1960 M Date Provider Department Center 03/15/2025 SUJEY RIDER [facility] CARD [facility] No family history on file Normal [facility] Ambulatory Visit Summaryon 0 03-10-2025 Ambulatory [...] LYN MACE PA-C Where: [facility] [address] [place] [address]- Medications What How Much When Instructions Unchanged [...] for choosing us for your care. Normal [facility] US Abdominal Aorta for vicki denise 02-28-[address] [address] Ultrasound Report Signed Patient: ALISIA CORREA MR#: [id number] : 1960 Acct:[id number] Age/Sex: 64 / M ADM Date: 02/28/25 Loc: US Attending Dr: Heidy Marin M.D. Ordering Physician: Heidy Marin M.D. Date of Service: 02/28/25 Procedure(s): US abdominal aortic aneurysm Accession Number(s): [id number] cc: ELLEN CRABTREE ; Heidy Marin M.D. The [place] [address] Patient Name: ALISIA CORREA MRN: [facility]:[id number] date: 1960 Sex: M Assigned Patient Location: US Current Patient Location: US Accession/Order Number: [id number] Exam Date: 02/28/2025 11:36 Report Date: 02/28/2025 [...] Garcia M.D. 02/28/2025 11:39 AM Dictation Location: [place] [address] Electronically authenticated by: [id number] Y Date: 02/28/2025 11:39 Dictated By: Geneva Garcia M.D. Signed By: 02/28/25 1142 DD/ 1139 TD/TT: [employer] Supervisor: [facility] Radiology, Radiologisatu long MD - 02/28/2025 [place] [address] Ultrasound Report Signed Patient: ALISIA CORREA MR#: [id number] : 1960 Acct:[id number] Age/Sex: 64 / M ADM Date: 02/28/25 Loc: US Attending Dr: Heidy Marin M.D. Ordering Physician: Heidy Marni M.D. Date of Service: 02/28/25 Procedure(s): US abdominal aortic aneurysm Accession Number(s): [id number] cc: ELLEN CRABTREE ; Heidy Marin M.D. [place] [address] Patient Name: ALISIA CORREA MRN: [id number] date: 1960 Sex: M Assigned Patient Location: US Current Patient Location: US Accession/Order Number: [id number] Exam Date: 02/28/2025 11:36 Report Date: 02/28/2025 [...] Garcia M.D. 02/28/2025 11:39 AM Dictation Location: [place] [address] Electronically authenticated by: [id number] Y Date: 02/28/2025 11:39 Dictated By: Geneva Garcia M.D. Signed By: 02/28/25 1142 DD/ 1139 TD/TT: [employer] Supervisor: [facility] Radiology Study observation (narrative) [facility] US Abdominal Aorta for vicki ningOrdered By: Radiologist Radiology on 02-28-2025 [facility] Work Phone: Ambulatory Visit Summaryon 0 [...] LYN MACE PA-C Where: [facility] [address] [place] [address]- Thursday 10:00 AM EDT With: LYN MACE PA-C Where: [facility] [address] [place] [address]- Thursday 10:00 AM EDT With: LYN MACE PA-C Where: [facility] [address] [place] [address]- Medications What How Much When Instructions Unchanged [...] for choosing us for your care. Normal [facility] CT abdomen pelvis wo conon 0 02-15-2025 CT abdomen pelvis wo con [facility] [place] [address] [place] [address] CT Scan Report Signed Patient: Alisia Correa MR#: [id number] : 1960 Acct:[id number] Age/Sex: 64 / M ADM Date: 02/15/25 Loc: CT Room: Type: [facility] Attending Dr: Romel Leonardo MD Copies to: [...] Jr., DAlejandroOAlejandro 02/15/2025 3:42 PM Dictation Location: [facility]- Transcribed By: [facility] 02/15/25 1542 Dictated By: Steven Shah Jr, DO 02/15/25 1538 Signed By: 02/15/25 1542 Normal [facility] Ambulatory Visit Summaryon 0 01-26-2025 [...] for choosing us for your care. Nathan Alegria [facility] Ambulatory Visit Summaryon 0 12-27-2024 [...] LYN MACE PA-C Where: [facility] [address] [place] [address] [place] [address]- You Need to Schedule the Following Appointments Follow Up with LYN MACE PA-C, URL When: In 1 month Where: [address] [place] [address] Medications What How Much When Instructions New sulfamethoxazole-trimetho prim (Bactrim 400 mg-80 mg Tab) 1 Tablets By Mouth Thursday Duration: 90 Days Refills: 1 Pickup at [facility] 115 Unchanged acarbose (acarbose 25 mg oral tablet) [...] Pharmacy Information [facility]: [address] [place], [place] [phone] Allergies Avelox (Wheal, Eruption, Dyspnea, Urticaria, Itching, [...] Testicular hyp (more content not included)... Normal [facility] Urology Office/Clinic Noteon 12-27-2024 Urology Office/Clinic [...] E&M of Est. Patient Moderate 30-39 Min 70238 2. Urine retention (R33.9: Retention of urine, unspecified) Chronic. SP changed. Return in 4 weeks for next change. [1] Ordered: Change cystostomy tube/simple [address] Orders: sulfamethoxazole-trimetho prim, 1 tab(s), Oral, MonWedFri for 90 day(s), 39 tab(s), Refill(s) 1, [facility], 177, cm, 03/15/24 11:26:00 EDT, Height/Length Dosing, 95.3, kg, 03/15/24 11:26:00 EDT, Weight Dosing Follow-up With When Contact Information RODRI KHAN, LYN Crum, URL In 1 month [address] [place] [address] Additional Instructions: Patient Education Urinary [...] LYN MACE PA-C 11/28/2024 16:01 EST Normal [facility] Comment on above: Result Comment: Elec tronically Signed By: LYN MACE PA-C\.br\Date and Time Signed: 12/27/24 12:17 EDT Basophils Auto (Bld) [#/Vol] on 12-13-2024 Basophils (Bld) [#/Vol] Automated basophil count 0.0-0.1 [facility] Basophils/100 WBC Auto (Bld) on 12-13-2024 Basophils/100 WBC (Bld) Automated basophil % 0.2-2.0 [facility] Eosinophils/100 WBC Auto (Bl d)on 12-13-2024 Eosinophils/100 WBC (Bld) Automated eosinophil % 0.9-7.0 [facility] Erythrocyte distribution wid th Auto (RBC) [Ratio]on 12-13-2024 Erythrocyte distribution width (RBC) [Ratio] Erythrocyte distribution width [Ratio] by Automated count High 11.0-15.0 [facility] Estimated glomerular filtrat ion rate (GFR) non- Americanon 12-13-2024 GFR/1.73 sq M.predicted among non-blacks MDRD (S/P/Bld) [Vol rate/Area] Estimated glomerular filtration rate (GFR) non- >=60 mL/min/1.7 3m 2 [facility] Globulin Calc (S) [Mass/Vol] on 12-13-2024 Globulin (S) [Mass/Vol] Serum globulin measurement by calculation (mass/volume) [facility] Hematocrit Auto (Bld) [Volum e fraction]on 12-13-2024 Hematocrit (Bld) [Volume fraction] Hematocrit [Volume Fraction] of Blood by Automated count Low 42.0-54.0 [facility] Hemoglobin [Mass/volume] in Bloodon 12-13-2024 Hemoglobin (Bld) [Mass/Vol] Hemoglobin [Mass/volume] in Blood Low 14.0-18.0 [facility] INR in Platelet poor plasma by Coagulation assayon 12-13-2024 INR Coag (PPP) [Relative time] INR in Platelet poor plasma by Coagulation assay [facility] Comment on above: DESIRED INR:2.0-3.0 CONDITIONS NOT LISTED BELOW2.5-3.5 FOR PROSTHETIC HEART VALVE REPLACEMENT2.5-3.5 RECURRENT THROMBOSIS Laboratory - Chemistry and C hemistry - challengeon 12-13-2024 Albumin [Mass/Vol] 3.7 g/dL 3.4-5.0 [facility] ALP [Catalytic activity/Vol] 91 U/L 46-116 [facility] ALT [Catalytic activity/Vol] U/L Low 16-63 [facility] AST [Catalytic activity/Vol] 18 U/L 15-37 [facility] Bilirubin [Mass/Vol] 0.4 mg/dL 0.2-1.0 [facility] Calcium [Mass/Vol] 9.0 mg/dL 8.5-10.1 [facility] Chloride [Moles/Vol] 108 mmol/L High 98-107 [facility] CO2 [Moles/Vol] 27.7 mmol/L 21.0-32.0 [facility] Creatinine [Mass/Vol] 1.20 mg/dL 0.70-1.30 [facility] GFR/1.73 sq M.predicted MDRD (S/P/Bld) [Vol rate/Area] mL/min/{1.73_m2} >=60 mL/min/1.7 3m 2 [facility] Glucose [Mass/Vol] 91 mg/dL 74-106 [facility] Lactate [Moles/Vol] 1.2 mmol/L 0.4-2.0 [facility] Potassium [Moles/Vol] 3.7 mmol/L 3.5-5.1 [facility] Protein [Mass/Vol] 7.1 g/dL 6.4-8.2 [facility] Sodium [Moles/Vol] 143 mmol/L 136-145 [facility] Urea nitrogen [Mass/Vol] 24.0 mg/dL High 7.0-18.0 [facility] Urea nitrogen/Creatinine [Mass ratio] 20.0 mg/mg [facility] Laboratory - Hematology and Cell countson 12-13-2024 Immature granulocytes/100 WBC (Bld) 0.2 % 0.0-0.5 [facility] - Microbiology an d Antimicrobial susceptibilityon 12-13-2024 SARS-CoV-2 (COVID-19) RNA KELLIE+probe Ql (Unsp spec) Negative NEGATIVE [facility] Comment on above: This test has [...] diagnosis of Covid-19 under section 564(b)(1) of [facility], 21 [place].C. 360bbb-3(b)(1), unless the declaration isterminated or authorization is revoked sooner. Laboratory - Urinalysison Amorphous sediment LM Ql (Urine sed) FEW [facility] Mucus Ql (Urine sed) NONE SEEN NONE SEEN [facility] Leukocytes [#/volume] correc jacqueline for nucleated erythrocytes in Blood by Automated counon 12-13-2024 WBC corrected for nucl RBC Auto (Bld) [#/Vol] Leukocytes [#/volume] corrected for nucleated erythrocytes in Blood by Automated coun 4.0-11.0 [facility] Lymphocytes Auto (Bld) [#/Vo l]on 12-13-2024 Lymphocytes (Bld) [#/Vol] Lymphocytes [#/volume] in Blood by Automated count 1.2-3.8 [facility] Lymphocytes/100 WBC Auto (Bl d)on 12-13-2024 Lymphocytes/100 WBC (Bld) Lymphocytes/100 leukocytes in Blood by Automated count 20.5-60.0 [facility] MCH Auto (RBC) [Entitic mass ]on 12-13-2024 MCH (RBC) [Entitic mass] MCH [Entitic mass] by Automated count 25.9-34.0 [facility] MCHC Auto (RBC) [Mass/Vol]on 12-13-2024 MCHC (RBC) [Mass/Vol] MCHC [Mass/volume] by Automated count 29.9-35.2 [facility] MCV Auto (RBC) [Entitic vol] on 12-13-2024 MCV (RBC) [Entitic vol] MCV [Entitic volume] by Automated count High 80.0-94.0 [facility] Monocytes Auto (Bld) [#/Vol] on 12-13-2024 Monocytes (Bld) [#/Vol] Automated blood monocyte count 0.3-0.8 [facility] Monocytes/100 WBC Auto (Bld) on 12-13-2024 Monocytes/100 WBC (Bld) Automated monocyte % 1.7-12.0 [facility] Neutrophils Auto (Bld) [#/Vo l]on 12-13-2024 Neutrophils (Bld) [#/Vol] Neutrophils [#/volume] in Blood by Automated count 1.4-6.5 [facility] Neutrophils/100 WBC Auto (Bl d)on 12-13-2024 Neutrophils/100 WBC (Bld) Automated neutrophil % 43.0-75.0 [facility] No Panel Informationon 12-13 Urine Bacteria LARGE #/HPF Abnormal NONE SEEN [facility] Urine Culture Reflexed YES-[facility] Urine Other Casts NONE SEEN #/LPF NONE SEEN [facility] Urine Other Crystals Seen #/HPF Abnormal None Seen [facility] Urine RBC 2-5 #/HPF Abnormal 0-2 [facility] Urine Squamous Epithelial Cells RARE #/LPF NONE/RARE [facility] Urine WBC 5-10 #/HPF Abnormal NONE SEEN [facility] Eosinophils # (Auto) 0.2 10 3/uL 0.0-0.7 [facility] Immature Granulocyte # (Auto) 0.01 10 3/uL 0.00-0.03 [facility] Troponin I High Sensitivity 4.4 pg/mL 4.0-76.1 [facility] Comment on above: CUT-OFF POINTS HAVE [...] INFORMATION. Bedside Influenza Type A Antigen Negative [facility] Comment on above: Negative for Flu A p rotein antigen. Infection due to Flu Acannot be ruled out. Flu A antigen in the sample may bebelow the detection limit of the test. Bedside Influenza Type B Antigen Negative [facility] Comment on above: Negative for Flu B p rotein antigen. Infection due to Flu Bcannot be ruled out. Flu B antigen in the sample may bebelow the detection limit of the test. Platelet mean volume Auto (B ld) [Entitic vol]on 12-13-2024 Platelet mean volume (Bld) [Entitic vol] Platelet mean volume [Entitic volume] in Blood by Automated count 9.5-13.5 [facility] Platelets Auto (Bld) [#/Vol] on 12-13-2024 Platelets (Bld) [#/Vol] Platelets [#/volume] in Blood by Automated count Low 150-450 [facility] Prothrombin time (PT)on 11-20 PT Coag (PPP) [Time] Prothrombin time (PT) 9.0- 11.6 [facility] RBC Auto (Bld) [#/Vol]on RBC (Bld) [#/Vol] Erythrocytes [#/volu me] in Blood by Automated count Low 4.70-6.10 [facility] Serum or plasma albumin/glob ulin mass ratioon 12-13-2024 Albumin/Globulin [Mass ratio] Serum or plasma albumin/globulin mass ratio [facility] Serum or plasma anion gap de terminationon 12-13-2024 Anion gap [Moles/Vol] Serum or plasma an ion gap determination [facility] Urine Cultureon 12-13-2024 Bacteria identified Cx Nom (U) ORGANISM: Pseudomonas aeruginosa (O:PSEAER) Carbapenemase [Type] in Isolate by [employer] Organism negative for carbapenemase (CRE) [place] Count >100,000 ORGANISM: Methicillin Resis Staph Aureus (O:MRSA) [place] Count >100,000 Aerobic SABI Charge (NMIC56) SUSCEPTIBILITY ORGANISM: O:PSEAER ANTIBIOTIC INTERPRETATION SABI Amikacin S <16 Aztreonam IB <4 Cefepime S <2 Ceftazidime IB <1 Ceftazidime/Avibactam S <4 Ceftolozane/Tazobactam S <2 Ciprofloxacin I 1 Gentamicin S <2 Levofloxacin I 2 Meropenem S <1 Piperacillin/Tazobactam IB <8 Tobramycin S <2 Aerobic ASBI Charge (PCMIC38) SUSCEPTIBILITY ORGANISM: O:MRSA ANTIBIOTIC INTERPRETATION [...] RESISTANT TO ALL B-LACTAM DRUGS. PERFORMED BY: [place] [address] PATHOLOGIST ASSOCIATE PROFESSOR OF SURGERY HEIDY MIRANDA M.D. Normal [facility] Comment on above: Performed By: #### C UU #### [address] Urine cultureOrdered By: Nakia Cramer on 12-13-2024 Bacteria identified Cx Nom (U) Abnormal [facility] Bacteria identified Cx Nom (U) Abnormal [facility] C Urineon 12-02-2024 Bacteria identified Cx [...] Locations R1: This test was performed at: [facility], [address] [place] [address], [address] , [place], Normal [facility] Comment on above: Performed By: #### [id number] #### [facility] [address] [place] [address] A1C with Estimated Average G [facility] 11-28-2024 Glucose [Mass/Vol] 103 mg/dL Normal [facility] Comment on above: Order Comment: Reaso n for Exam Diabetes Result Comment: PERF ORMED BY: [place] [address] PATHOLOGIST ASSOCIATE PROFESSOR OF SURGERY HEIDY MIRANDA M.D. Performed By: #### A 1C [facility] eA #### [place] [id number] [facility] HbA1c (Bld) [Mass fraction] 5.2 % Normal 4.3-5.6 [facility] Comment on above: Order Comment: Reaso n for Exam Diabetes Result Comment: Incr eased risk for diabetes: 5.7 - 6.4 diabetes: >6.4 glycemic control for adults with diabetes: <7.0 Performed By: #### A 1C [facility] eA #### [address] [address] [facility] Alanine aminotransferase [En zymatic activity/volume] in Serum or PlasmaOrdered By: Ellen Crabtree on 11-28-2024 ALT [Catalytic activity/Vol] Alanine aminotransferase [Enzymatic activity/volume] in Serum or Plasma Low 7-52 [facility] Albumin [Mass/volume] in Ser um or Plasma by Bromocresol green (BCG) dye binding methoOrdered By: Ellen Crabtree on 11-28-2024 Albumin BCG dye [Mass/Vol] Albumin [Mass/volume] in Serum or Plasma by Bromocresol green (BCG) dye binding metho 3.5-5.7 [facility] Alkaline phosphatase [Enzyma tic activity/volume] in Serum or PlasmaOrdered By: Ellen Crabtree on 11-28-2024 ALP [Catalytic activity/Vol] Alkaline phosphatase [Enzymatic activity/volume] in Serum or Plasma 34-104 [facility] Aspartate aminotransferase [ Enzymatic activity/volume] in Serum or PlasmaOrdered By: Ellen Crabtree on 11-28-2024 AST [Catalytic activity/Vol] Aspartate aminotransferase [Enzymatic activity/volume] in Serum or Plasma 13-39 [facility] Basophils Auto (Bld) [#/Vol] Ordered By: Ellen Crabtree on 11-28-2024 Basophils (Bld) [#/Vol] Automated basophil count 0.0-0.2 [facility] Basophils/100 WBC Auto (Bld) Ordered By: Ellen Crabtree on 11-28-2024 Basophils/100 WBC (Bld) Automated basophil % . [facility] Bilirubin.total [Mass/volume ] in Serum or PlasmaOrdered By: Ellen Crabtree on 11-28-2024 Bilirubin [Mass/Vol] Bilirubin.total [Mass/volume] in Serum or Plasma 0.3-1.0 [facility] Blood estimated average gluc ose determination by estimation from glycated hemoglobinOrdered By: Ellen Crabtree on 11-28-2024 Average glucose Estimated from glycated hemoglobin (Bld) [Mass/Vol] Glucose mean value [Mass/volume] in Blood Estimated from glycated hemoglobin [facility] Calcium [Mass/volume] in Ser um or PlasmaOrdered By: Ellen Crabtree on 11-28-2024 Calcium [Mass/Vol] Calcium [Mass/volume ] in Serum or Plasma 8.6-10.3 [facility] Carbon dioxide, total [Moles /volume] in Serum or PlasmaOrdered By: Ellen Crabtree on 11-28-2024 CO2 [Moles/Vol] Carbon dioxide, tota l [Moles/volume] in Serum or Plasma 21.0-31.0 [facility] Chloride [Moles/volume] in S jordy or PlasmaOrdered By: Ellen Crabtree on 11-28-2024 Chloride [Moles/Vol] Chloride [Moles/vol ume] in Serum or Plasma High 98-107 [facility] Cholesterol [Mass/volume] in Serum or PlasmaOrdered By: Ellen Crabtree on 11-28-2024 Cholesterol [Mass/Vol] Cholesterol [Mass /volume] in Serum or Plasma 140-200 [facility] Comment on above: Chol less than 200 m g/dl low riskChol 201-239 mg/dl borderline riskChol 240 mg/dl and greater high risk Cholesterol in HDL [Mass/vol ume] in Serum or PlasmaOrdered By: Ellen Crabtree on 11-28-2024 Cholesterol in HDL [Mass/Vol] Serum or plasma high density lipoprotein (HDL) cholesterol measurement 23-92 [facility] Comment on above: HDL CHOL ATP-III CLA SSIFICATION Cardiovascular RiskHDL > or equal to 60 mg/dL LOWHDL < 40 mg/dL HIGH Cholesterol in LDL Calc [Mas s/Vol]Ordered By: Ellen Crabtree on 11-28-2024 Cholesterol in LDL [Mass/Vol] Cholesterol in LDL [Mass/volume] in Serum or Plasma by calculation 0-100 [facility] Comment on above: LDL ATP III CLASSIFI CATIONLDL less than 100 mg/dL OptimalLDL 100-129 mg/dL Near or above optimalLDL 130-159 mg/dL Borderline highLDL 160-189 mg/dL HighLDL greater than 189 mg/dL Very high Cholesterol in VLDL Calc [Ma ss/Vol]Ordered By: Ellen Crabtree on 11-28-2024 Cholesterol in VLDL [Mass/Vol] Cholesterol in VLDL [Mass/volume] in Serum or Plasma by calculation [facility] Complete Blood Count Auto Di ffon 11-28-2024 Basophils (Bld) [#/Vol] 0.0 10*3/uL Normal 0.0-0.2 [facility] Comment on above: Result Comment: PERF ORMED BY: [place] [address] PATHOLOGIST ASSOCIATE PROFESSOR OF SURGERY HEIDY MIRANDA M.D. Performed By: #### L IPID, CMP, PSAS, TSH3, CBC #### [address] Basophils/100 WBC (Bld) 0.5 % Normal . [facility] Comment on above: Performed By: #### L IPID, CMP, PSAS, TSH3, CBC #### [address] Eosinophils (Bld) [#/Vol] 0.1 10*3/uL Normal 0.0-0.45 [facility] Comment on above: Performed By: #### L IPID, CMP, PSAS, TSH3, CBC #### [address] Eosinophils/100 WBC (Bld) 3.0 % Normal . [facility] Comment on above: Performed By: #### L IPID, CMP, PSAS, TSH3, CBC #### [address] Erythrocyte distribution width (RBC) [Ratio] 19.5 % High 12.0-14.8 [facility] Comment on above: Performed By: #### L IPID, CMP, PSAS, TSH3, CBC #### [address] Hematocrit (Bld) [Volume fraction] 39.1 % Normal 38.8-50.0 [facility] Comment on above: Performed By: #### L IPID, CMP, PSAS, TSH3, CBC #### [address] Hemoglobin (Bld) [Mass/Vol] 12.6 g/dL Low 13.0-17.0 [facility] Comment on above: Performed By: #### L IPID, CMP, PSAS, TSH3, CBC #### [address] Lymphocytes (Bld) [#/Vol] 1.4 10*3/uL Normal 1.00-4.8 [facility] Comment on above: Performed By: #### L IPID, CMP, PSAS, TSH3, CBC #### [address] Lymphocytes/100 WBC (Bld) 28.5 % Normal . [facility] Comment on above: Performed By: #### L IPID, CMP, PSAS, TSH3, CBC #### [address] MCH (RBC) [Entitic mass] 29.4 pg Normal 27.5-35.2 [facility] Comment on above: Performed By: #### L IPID, CMP, PSAS, TSH3, CBC #### [address] MCV (RBC) [Entitic vol] 91.3 fL Normal 83.5-101 [facility] Comment on above: Performed By: #### L IPID, CMP, PSAS, TSH3, CBC #### [address] Mean Corpuscular HGB Conc 32.2 g/dL Low 32.5-35.6 [facility] Comment on above: Performed By: #### L IPID, CMP, PSAS, TSH3, CBC #### [address] Monocytes (Bld) [#/Vol] 0.4 10*3/uL Normal 0.0-0.8 [facility] Comment on above: Performed By: #### L IPID, CMP, PSAS, TSH3, CBC #### [address] Monocytes/100 WBC (Bld) 7.3 % Normal . [facility] Comment on above: Performed By: #### L IPID, CMP, PSAS, TSH3, CBC #### [address] Neutrophils (Bld) [#/Vol] 3.0 10*3/uL Normal 1.8-7.7 [facility] Comment on above: Performed By: #### L IPID, CMP, PSAS, TSH3, CBC #### [address] Neutrophils/100 WBC (Bld) 60.7 % Normal . [facility] Comment on above: Performed By: #### L IPID, CMP, PSAS, TSH3, CBC #### [address] NRBC% 0.3 /100{WBC} Normal 0-0.5 [facility] Comment on above: Performed By: #### L IPID, CMP, PSAS, TSH3, CBC #### [address] Platelet mean volume (Bld) [Entitic vol] 11.7 fL High 6.6-10.1 [facility] Comment on above: Performed By: #### L IPID, CMP, PSAS, TSH3, CBC #### [place] [address] [place] Platelets (Bld) [#/Vol] 126 10*3/uL Low 150-450 [facility] Comment on above: Performed By: #### L IPID, CMP, PSAS, TSH3, CBC #### [place] [address] [place] RBC (Bld) [#/Vol] 4.28 10*6/uL Normal 3.90-5.60 [facility] Comment on above: Performed By: #### L IPID, CMP, PSAS, TSH3, CBC #### [place] [address] [place] WBC (Bld) [#/Vol] 4.9 10*3/uL Normal 4.1-10.5 [facility] Comment on above: Performed By: #### L IPID, CMP, PSAS, TSH3, CBC #### [address] [place] [address] [place] Comprehensive Metabolic Pane oscar 11-28-2024 Albumin [Mass/Vol] 4.2 g/dL Normal 3.5-5.7 [facility] Comment on above: Order Comment: Reaso n for Exam Hyperlipidemia Reason for Exam: Hyperlipidemia Performed By: #### L IPID, CMP, PSAS, TSH3, CBC #### [address] Albumin/Globulin [Mass ratio] 1.4 {ratio} Normal [facility] Comment on above: Order Comment: Reaso n for Exam Hyperlipidemia Reason for Exam: Hyperlipidemia Performed By: #### L IPID, CMP, PSAS, TSH3, CBC #### [address] ALP [Catalytic activity/Vol] 85 U/L Normal 34-104 [facility] Comment on above: Order Comment: Reaso n for Exam Hyperlipidemia Reason for Exam: Hyperlipidemia Performed By: #### L IPID, CMP, PSAS, TSH3, CBC #### [address] ALT [Catalytic activity/Vol] 3 U/L Low 7-52 [facility] Comment on above: Order Comment: Reaso n for Exam Hyperlipidemia Reason for Exam: Hyperlipidemia Performed By: #### L IPID, CMP, PSAS, TSH3, CBC #### [address] Anion gap [Moles/Vol] 8.8 mmol/L Normal 6.0-15.0 [facility] Comment on above: Order Comment: Reaso n for Exam Hyperlipidemia Reason for Exam: Hyperlipidemia Performed By: #### L IPID, CMP, PSAS, TSH3, CBC #### [place] [address] [place] AST [Catalytic activity/Vol] 17 U/L Normal 13-39 [facility] Comment on above: Order Comment: Reaso n for Exam Hyperlipidemia Reason for Exam: Hyperlipidemia Performed By: #### L IPID, CMP, PSAS, TSH3, CBC #### [address] [place] [address] [place] Bilirubin [Mass/Vol] 0.4 mg/dL Normal 0.3-1.0 [facility] Comment on above: Order Comment: Reaso n for Exam Hyperlipidemia Reason for Exam: Hyperlipidemia Performed By: #### L IPID, CMP, PSAS, TSH3, CBC #### [facility] [address] [place] [address] [place] Calcium [Mass/Vol] 9.9 mg/dL Normal 8.6-10.3 [facility] Comment on above: Order Comment: Reaso n for Exam Hyperlipidemia Reason for Exam: Hyperlipidemia Performed By: #### L IPID, CMP, PSAS, TSH3, CBC #### [facility] [address] [place] [address] [place] Chloride [Moles/Vol] 111 mmol/L High 98-107 [facility] Comment on above: Order Comment: Reaso n for Exam Hyperlipidemia Reason for Exam: Hyperlipidemia Performed By: #### L IPID, CMP, PSAS, TSH3, CBC #### [facility] [address] [place] [address] [place] CO2 [Moles/Vol] 27.9 mmol/L Normal 21.0-31.0 [facility] Comment on above: Order Comment: Reaso n for Exam Hyperlipidemia Reason for Exam: Hyperlipidemia Performed By: #### L IPID, CMP, PSAS, TSH3, CBC #### [facility] [address] [place] [address] [place] Creatinine [Mass/Vol] 1.29 mg/dL Normal 0.70-1.30 [facility] Comment on above: Order Comment: Reaso n for Exam Hyperlipidemia Reason for Exam: Hyperlipidemia Performed By: #### L IPID, CMP, PSAS, TSH3, CBC #### [facility] [address] [place] [address] [place] GFR/1.73 sq M.predicted MDRD (S/P/Bld) [Vol rate/Area] mL/min/{1.73_m2} Normal [facility] Comment on above: Order Comment: Reaso n for Exam Hyperlipidemia Reason for Exam: Hyperlipidemia Performed By: #### L IPID, CMP, PSAS, TSH3, CBC #### [facility] [address] Globulin (S) [Mass/Vol] 2.9 g/dL Normal [facility] Comment on above: Order Comment: Reaso n for Exam Hyperlipidemia Reason for Exam: Hyperlipidemia Performed By: #### L IPID, CMP, PSAS, TSH3, CBC #### [facility] [address] [place] [address] [place] Glucose [Mass/Vol] 90 mg/dL Normal 70-100 [facility] Comment on above: Order Comment: Reaso n for Exam Hyperlipidemia Reason for Exam: Hyperlipidemia Result Comment: [facility] Glucose Reference Range is dependent on time and content of last meal. Glucose of more than 200 mg/dL in a nonstressed, ambulatory subject supports the diagnosis of Diabetes Mellitus. ADA recommended reference range Performed By: #### L IPID, CMP, PSAS, TSH3, CBC #### [facility] [address] Potassium [Moles/Vol] 3.7 mmol/L Normal 3.5-5.1 [facility] Comment on above: Order Comment: Reaso n for Exam Hyperlipidemia Reason for Exam: Hyperlipidemia Performed By: #### L IPID, CMP, PSAS, TSH3, CBC #### [facility] [address] [place] [id number] [facility] Protein [Mass/Vol] 7.1 g/dL Normal 6.4-8.9 [facility] Comment on above: Order Comment: Reaso n for Exam Hyperlipidemia Reason for Exam: Hyperlipidemia Performed By: #### L IPID, CMP, PSAS, TSH3, CBC #### [facility] [address] [place] [id number] [place] Sodium [Moles/Vol] 144 mmol/L Normal 136-145 [facility] Comment on above: Order Comment: Reaso n for Exam Hyperlipidemia Reason for Exam: Hyperlipidemia Performed By: #### L IPID, CMP, PSAS, TSH3, CBC #### [facility] [address] [place] [address] [place] Urea nitrogen [Mass/Vol] 24 mg/dL Normal 7-25 [facility] Comment on above: Order Comment: Reaso n for Exam Hyperlipidemia Reason for Exam: Hyperlipidemia Performed By: #### L IPID, CMP, PSAS, TSH3, CBC #### [facility] [address] Creatinine [Mass/volume] in Serum or PlasmaOrdered By: Ellen Crabtree on 11-28-2024 Creatinine [Mass/Vol] Creatinine [Mass/v olume] in Serum or Plasma 0.70-1.30 [facility] Eosinophils Auto (Bld) [#/Vo l]Ordered By: Ellen Crabtree on 11-28-2024 Eosinophils (Bld) [#/Vol] Automated eosinophil count 0.0-0.45 [facility] Eosinophils/100 WBC Auto (Bl d)Ordered By: Ellen Crabtree on 11-28-2024 Eosinophils/100 WBC (Bld) Automated eosinophil % . [facility] Erythrocyte distribution wid th Auto (RBC) [Ratio]Ordered By: Ellen Crabtree on 11-28-2024 Erythrocyte distribution width (RBC) [Ratio] Erythrocyte distribution width [Ratio] by Automated count High 12.0-14.8 [facility] Globulin Calc (S) [Mass/Vol] Ordered By: Ellen Crabtree on 11-28-2024 Globulin (S) [Mass/Vol] Serum globulin measurement by calculation (mass/volume) [facility] Glucose [Mass/volume] in Ser um or PlasmaOrdered By: Ellen Crabtree on 11-28-2024 Glucose [Mass/Vol] Glucose [Mass/volume ] in Serum or Plasma 70-100 [facility] Comment on above: ADA recommended refe rence rangeRandom Glucose Reference Range is dependent on time and content of last meal. Glucose of more than 200 mg/dL in a nonstressed, ambulatory subject supports the diagnosis of Diabetes Mellitus. Hematocrit Auto (Bld) [Volum e fraction]Ordered By: Ellen Crabtree on 11-28-2024 Hematocrit (Bld) [Volume fraction] Hematocrit [Volume Fraction] of Blood by Automated count 38.8-50.0 [facility] Hemoglobin A1c/Hemoglobin.to jesus in BloodOrdered By: Ellen Crabtree on 11-28-2024 HbA1c (Bld) [Mass fraction] Hemoglobin A1c percentage 4.3-5.6 [facility] Comment on above: Increased risk for d iabetes: 5.7 - 6.4diabetes: >6.4glycemic control for adults with diabetes: <7.0 Hemoglobin [Mass/volume] in BloodOrdered By: Ellen Crabtree on 11-28-2024 Hemoglobin (Bld) [Mass/Vol] Hemoglobin [Mass/volume] in Blood Low 13.0-17.0 [facility] Leukocytes [#/volume] correc jacqueline for nucleated erythrocytes in Blood by Automated counOrdered By: Ellen Crabtree on 11-28-2024 WBC corrected for nucl RBC Auto (Bld) [#/Vol] Leukocytes [#/volume] corrected for nucleated erythrocytes in Blood by Automated coun 4.1-10.5 [facility] Lipid Panelon 11-28-2024 Cholesterol [Mass/Vol] 152 mg/dL Normal 140-200 [facility] Comment on above: Order Comment: Reaso n for Exam Hyperlipidemia Reason for Exam: Hyperlipidemia Result Comment: Chol less than 200 mg/dl low risk Chol 201-239 mg/dl borderline risk Chol 240 mg/dl and greater high risk Performed By: #### L IPID, CMP, PSAS, TSH3, CBC #### [facility] [address] [place] [address] [place] Cholesterol in HDL [Mass/Vol] 40 mg/dL Normal 23-92 [facility] Comment on above: Order Comment: Reaso n for Exam Hyperlipidemia Reason for Exam: Hyperlipidemia Result Comment: HDL CHOL ATP-III CLASSIFICATION Cardiovascular Risk HDL > or equal to 60 mg/dL LOW HDL < 40 mg/dL HIGH Performed By: #### L IPID, CMP, PSAS, TSH3, CBC #### [facility] [address] [place] [address] [place] Cholesterol.total/Chol esterol in HDL [Mass ratio] 3.8 {ratio} Normal <5.0 [facility] Comment on above: Order Comment: Reaso n for Exam Hyperlipidemia Reason for Exam: Hyperlipidemia Performed By: #### L IPID, CMP, PSAS, TSH3, CBC #### [facility] [address] [place] [id number] [place] LDL Cholesterol,Calculated 85 mg/dL Normal 0-100 [facility] Comment on above: Order Comment: Reaso n for Exam Hyperlipidemia Reason for Exam: Hyperlipidemia Result Comment: LDL ATP III CLASSIFICATION LDL less than 100 mg/dL Optimal LDL 100-129 mg/dL Near or above optimal LDL 130-159 mg/dL Borderline high LDL 160-189 mg/dL High LDL greater than 189 mg/dL Very high Performed By: #### L IPID, CMP, PSAS, TSH3, CBC #### [facility] [address] Triglyceride w/Reflex 134 mg/dL Normal 0-149 [facility] Comment on above: Order Comment: Reaso n for Exam Hyperlipidemia Reason for Exam: Hyperlipidemia Result Comment: TRIG ATP III CLASSIFICATION TRIG less than 150 mg/dL Normal TRIG 150-199 mg/dL Borderline high TRIG 200-500 mg/dL High TRIG greater than 500 mg/dL Very high Standard traceable to the Center for Disease Conrtrol and Prevention (CDC) test method. Performed By: #### L IPID, CMP, PSAS, TSH3, CBC #### [facility] [address] VLDL CHOLESTEROL 26 mg/dL Normal [facility] Comment on above: Order Comment: Reaso n for Exam Hyperlipidemia Reason for Exam: Hyperlipidemia Performed By: #### L IPID, CMP, PSAS, TSH3, CBC #### [facility] [address] Lymphocytes Auto (Bld) [#/Vo l]Ordered By: Ellen Crabtree on 11-28-2024 Lymphocytes (Bld) [#/Vol] Lymphocytes [#/volume] in Blood by Automated count 1.00-4.8 [facility] Lymphocytes/100 WBC Auto (Bl d)Ordered By: Ellen Crabtree on 11-28-2024 Lymphocytes/100 WBC (Bld) Lymphocytes/100 leukocytes in Blood by Automated count . [facility] MCH Auto (RBC) [Entitic mass ]Ordered By: Ellen Crabtree on 11-28-2024 MCH (RBC) [Entitic mass] MCH [Entitic mass] by Automated count 27.5-35.2 [facility] MCHC Auto (RBC) [Mass/Vol]Or dered By: Ellen Crabtree on 11-28-2024 MCHC (RBC) [Mass/Vol] MCHC [Mass/volume] by Automated count Low 32.5-35.6 [facility] MCV Auto (RBC) [Entitic vol] Ordered By: Ellen Crabtree on 11-28-2024 MCV (RBC) [Entitic vol] MCV [Entitic volume] by Automated count 83.5-101 [facility] Monocytes Auto (Bld) [#/Vol] Ordered By: Ellen Crabtree on 11-28-2024 Monocytes (Bld) [#/Vol] Automated blood monocyte count 0.0-0.8 [facility] Monocytes/100 WBC Auto (Bld) Ordered By: Ellen Crabtree on 11-28-2024 Monocytes/100 WBC (Bld) Automated monocyte % . [facility] Neutrophils Auto (Bld) [#/Vo l]Ordered By: Ellen Crabtree on 11-28-2024 Neutrophils (Bld) [#/Vol] Neutrophils [#/volume] in Blood by Automated count 1.8-7.7 [facility] Neutrophils/100 WBC Auto (Bl d)Ordered By: Ellen Crabtree on 11-28-2024 Neutrophils/100 WBC (Bld) Automated neutrophil % . [facility] No Panel InformationOrdered By: Ellen Crabtree on 11-28-2024 Estimated GFR (CKD-EPI) > 60.0 mL/Min [facility] Creatinine Clearance (Chem N/A [facility] Nucleated erythrocytes [Pres ence] in Blood by Automated countOrdered By: Ellen Crabtree on 11-28-2024 Nucleated RBC Auto Ql (Bld) Nucleated erythrocytes [Presence] in Blood by Automated count 0-0.5 [facility] PSA Screen (Yearly Only)on 0 11-28-2024 PSA Screen (Yearly Only) 0.710 ng/mL Normal 0.000-4.00 0 [facility] Comment on above: Order Comment: Is pa tient <50 yrs? Medicare does not pay <50.: N What is the date of the last PSA Screen?: [id number] Is Medicare the insurance?: Y Did you verify eligibility (Dx Time) check TestViewGp: YES TO ALL Result Comment: Seri al tumor marker results determined by assays using different manufacturers or methods may not be comparable. [facility] gasateria attendant and method: [employer] DXI, CHEMILUMINESCENT IMMUNOASSAY. PERFORMED BY: [place] [id number] PATHOLOGIST ASSOCIATE PROFESSOR OF SURGERY HEIDY MIRANDA M.D. Performed By: #### L IPID, CMP, PSAS, TSH3, CBC #### [place] [id number] [facility] Platelet mean volume Auto (B ld) [Entitic vol]Ordered By: Ellen Crabtree on 11-28-2024 Platelet mean volume (Bld) [Entitic vol] Platelet mean volume [Entitic volume] in Blood by Automated count High 6.6-10.1 [facility] Platelets Auto (Bld) [#/Vol] Ordered By: Ellen Crabtree on 11-28-2024 Platelets (Bld) [#/Vol] Platelets [#/volume] in Blood by Automated count Low 150-450 [facility] Potassium [Moles/volume] in Serum or PlasmaOrdered By: Ellen Crabtree on 11-28-2024 Potassium [Moles/Vol] Potassium [Moles/v olume] in Serum or Plasma 3.5-5.1 [facility] Prostate specific Ag [Mass/v olume] in Serum or PlasmaOrdered By: Ellen Crabtree on 11-28-2024 Prostate specific Ag [Mass/Vol] Prostate specific Ag [Mass/volume] in Serum or Plasma 0.000-4.00 0 [facility] Comment on above: Serial tumor marker results determined by assays using different manufacturers or methods may not be comparable.[facility] gasateria attendant and method:NAMITA [employer] DXI, CHEMILUMINESCENT IMMUNOASSAY. Protein [Mass/volume] in Ser um or PlasmaOrdered By: Ellen Crabtree on 11-28-2024 Protein [Mass/Vol] Protein [Mass/volume ] in Serum or Plasma 6.4-8.9 [facility] RBC Auto (Bld) [#/Vol]Ordere d By: Ellen Crabtree on 11-28-2024 RBC (Bld) [#/Vol] Erythrocytes [#/volu me] in Blood by Automated count 3.90-5.60 [facility] Serum or plasma albumin/glob ulin mass ratioOrdered By: Ellen Crabtree on 11-28-2024 Albumin/Globulin [Mass ratio] Serum or plasma albumin/globulin mass ratio [facility] Serum or plasma anion gap de terminationOrdered By: Ellen Crabtree on 11-28-2024 Anion gap [Moles/Vol] Serum or plasma an ion gap determination 6.0-15.0 [facility] Serum or plasma total choles terol/high density lipoprotein (HDL) cholesterol mass ratOrdered By: Ellen Crabtree on 11-28-2024 Cholesterol.total/Chol esterol in HDL [Mass ratio] Serum or plasma total cholesterol/high density lipoprotein (HDL) cholesterol mass rat <5.0 [facility] Sodium [Moles/volume] in Ser um or PlasmaOrdered By: Ellen Crabtree on 11-28-2024 Sodium [Moles/Vol] Sodium [Moles/volume ] in Serum or Plasma 136-145 [facility] Thyroid Stimulating Hormoneo n 11-28-2024 TSH Qn 1.06 m[IU]/L Normal 0.45-5.33 [facility] Comment on above: Order Comment: Reaso n for Exam Hyperlipidemia Reason for Exam: Hyperlipidemia Result Comment: PERF ORMED BY: [place] [address] PATHOLOGIST ASSOCIATE PROFESSOR OF SURGERY HEIDY MIRANDA M.D. Performed By: #### L IPID, CMP, PSAS, TSH3, CBC #### [address] Thyrotropin [Units/volume] i n Serum or PlasmaOrdered By: Ellen Crabtree on 11-28-2024 TSH Qn Thyrotropin [Units/volume] in Serum or Plasma 0.45-5.33 [facility] Triglyceride [Mass/volume] i n Serum or PlasmaOrdered By: Ellen Crabtree on 11-28-2024 Triglyceride [Mass/Vol] Triglyceride [Mass/volume] in Serum or Plasma 0-149 [facility] Comment on above: TRIG ATP III CLASSIF ICATIONTRIG less than 150 mg/dL NormalTRIG 150-199 mg/dL Borderline highTRIG 200-500 mg/dL High TRIG greater than 500 mg/dL Very highStandard traceable to the Center for Disease Conrtrol and Prevention (CDC) test method. Urea nitrogen [Mass/volume] in Serum or PlasmaOrdered By: Ellen Crabtree on 11-28-2024 Urea nitrogen [Mass/Vol] Urea nitrogen [Mass/volume] in Serum or Plasma 05-12 [facility] Urology Office/Clinic Noteon 11-28-2024 Urology Office/Clinic [...] prior to abx. Ordered: Change cystostomy tube/simple 02431 E&M of Est. Patient Low 20-29 Min 70354 2. Urinary retention (R33.9: Retention of urine, unspecified) Chronic. SP changed. Return in 4 weeks for next change. Ordered: Change cystostomy tube/simple 91778 Follow-up With When Contact Information RODRI KHAN, LYN Crum, URL In 1 month [address] [place] [place] [address] Additional Instructions: Patient Education Antibiotic [...] pneumococcal 23-valent vaccine 08/13/1995 Recorded Normal Alegria [facility] Comment on above: Result Comment: Elec tronically Signed By: LYN MACE PA-C\.br\Date and Time Signed: 11/28/24 16:28 EST WBC Auto (Bld) [#/Vol]Ordere d By: Ellen Crabtree on 11-28-2024 WBC (Bld) [#/Vol] Leukocytes [#/volume ] in Blood by Automated count 4.1-10.5 [facility] Ambulatory Visit Summaryon 0 10-28-2024 Ambulatory [...] LYN MACE PA-C Where: [facility] [place] [id number] Medications What How Much When Instructions Unchanged [...] for choosing us for your care. Normal [facility] C Urineon 09-29-2024 Bacteria identified Cx [...] Locations R1: This test was performed at: [facility], [address] [place] [address], [id number] , , [facility] Comment on above: Performed By: #### 2 [id number] #### [facility] [address] [place] [address] CT facial bones wo conon CT facial bones wo con [facility] [place] [address] [place] [id number] Scan Report Signed Patient: Alisia Correa SR MR#: [id number] : 1960 Acct:[id number] Age/Sex: 63 / M ADM Date: 09/27/24 Loc: ER Room: Type: PRE ER Attending Dr: Copies to: Benitez Ortega DO Ordering Provider: Benitez Ortega DO Date of Service: 09/27/24 CT/CT cervical spine wo con: fall ([id number]) CT/CT facial bones wo con: fall ([id number]) CT/CT head/brain wo con: fall CT BRAIN/FACIAL [...] Shah Jr., D.OAlejandro09/27/2024 5:11 PM Dictation Location: [facility]--18 Transcribed By: [facility] 09/27/241710 Dictated By: Steven Shah Jr, DO 09/27/24 170 Signed By: 09/27/241710 Normal [facility] Physician [facility] ECG 12 lead ECGon 09-27-2024 ECG 12 lead ECG [facility] [place] [address] [place] [address] Electrocardiograph Report Signed Patient: Alisia Correa SR MR#: [id number] : 1960 Acct:[id number] Age/Sex: 63 / M ADM Date: 09/27/24 Loc: ER Room: Type: [facility] ER Attending Dr: Ordering Provider: Benitez Ortega [...] sinus rhythm Confirmed by Benitez ORTEGA DO ([id number]) on 09/27/2024 8:17:17 PM Referred By: Electronically Signed By: Benitez ORTEGA DO Transcribed By: MUS Signed By Benitez Ortega DO 1 11/28/232016 Normal [facility] Physician [facility] Urology Office/Clinic Noteon 09-27-2024 Urology Office/Clinic Note [...] E&M of New Patient Low 30-44 Min 81043 2. Urinary retention (R33.9: Retention of urine, unspecified) [place] changed. Return in 4 weeks for next change. Ordered: Change cystostomy tube/simple 91600 E&M of New Patient Low 30-44 Min 48629 Follow-up With When Contact Information RODRI KHAN, LYN Crum, URL In 1 month [address] [place] [address] Additional Instructions: Patient Education Indwelling [...] pneumococcal 23-valent vaccine 08/13/1995 Recorded Normal [facility]leg[facility] Comment on above: Result Comment: Elec tronically Signed By: LYN MACE PA-C\.betty\Date and Time Signed: 09/27/24 12:38 EST C Urineon 06-16-2024 Bacteria identified Cx Nom (U) Microbiology PROCEDURE: Urine Culture [R1] SOURCE: U Suprapubic BODY SITE: COLLECTED DATE/TIME: 06/14/2024 15:25 EDT RECEIVED DATE/TIME: 06/14/2024 18:43 EDT START DATE/TIME: 06/14/2024 18:43 EDT FREE TEXT SOURCE: FRED YBARRA, Fidel IBARRA MD, Fidel Hinkle FINAL [...] Locations R1: This test was performed at: [facility], [address] [place] [address], [facility] , , [facility] Comment on above: Performed By: #### 2 [id number] #### [facility] [address] [place] [address] Ambulatory Visit Summaryon 0 06-09-2024 Ambulatory Visit [...] With: Madeline Harry Where: [facility] [address] [id number]- Medications What How Much When Instructions Unchanged [...] for choosing us for your care. Normal [facility] Basophils Auto (Bld) [#/Vol] on 04-27-2024 Basophils (Bld) [#/Vol] 0.0 10 3/uL 0.0-0.1 [facility] Basophils/100 WBC Auto (Bld) on 04-27-2024 Basophils/100 WBC (Bld) 0.1 % Low 0.2-2.0 [facility] Eosinophils/100 WBC Auto (Bl d)on 04-27-2024 Eosinophils/100 WBC (Bld) 0.0 % Low 0.9-7.0 [facility] Erythrocyte distribution wid th Auto (RBC) [Ratio]on 04-27-2024 Erythrocyte distribution width (RBC) [Ratio] 15.6 % High 11.0-15.0 [facility] Estimated glomerular filtrat ion rate (GFR) non- Americanon 04-27-2024 GFR/1.73 sq M.predicted among non-blacks MDRD (S/P/Bld) [Vol rate/Area] 37 mL/min/{1.73_m2} Low >=60 [facility] Globulin Calc (S) [Mass/Vol] on 07-10-2024 Globulin (S) [Mass/Vol] 4.5 g/dL [facility] Hematocrit Auto (Bld) [Volum e fraction]on 04-27-2024 Hematocrit (Bld) [Volume fraction] 30.1 % Low 42.0-54.0 [facility] Hemoglobin [Mass/volume] in Bloodon 04-27-2024 Hemoglobin (Bld) [Mass/Vol] 9.6 g/dL Low 14.0-18.0 [facility] - Chemistry and C hemistry - challengeon 04-27-2024 Albumin [Mass/Vol] 2.1 g/dL Low 3.4-5.0 [facility] ALP [Catalytic activity/Vol] 121 U/L High 46-116 [facility] ALT [Catalytic activity/Vol] U/L Low 16-63 [facility] AST [Catalytic activity/Vol] 10 U/L Low 15-37 [facility] Bilirubin [Mass/Vol] 0.3 mg/dL 0.2-1.0 [facility] Calcium [Mass/Vol] 8.6 mg/dL 8.5-10.1 [facility] Chloride [Moles/Vol] 105 mmol/L 98-107 [facility] CO2 [Moles/Vol] 30.6 mmol/L 21.0-32.0 [facility] Creatinine [Mass/Vol] 1.83 mg/dL High 0.70-1.30 [facility] GFR/1.73 sq M.predicted MDRD (S/P/Bld) [Vol rate/Area] 45 mL/min/{1.73_m2} Low >=60 [facility] Glucose [Mass/Vol] 153 mg/dL High 74-106 [facility] Potassium [Moles/Vol] 4.2 mmol/L 3.5-5.1 [facility] Protein [Mass/Vol] 6.6 g/dL 6.4-8.2 [facility] Sodium [Moles/Vol] 139 mmol/L 136-145 [facility] Urea nitrogen [Mass/Vol] 41.0 mg/dL High 7.0-18.0 [facility] Urea nitrogen/Creatinine [Mass ratio] 22.4 mg/mg [facility] - Hematology and Cell countson 04-27-2024 Immature granulocytes/100 WBC (Bld) 0.4 % 0.0-0.5 [facility] Leukocytes [#/volume] correc jacqueline for nucleated erythrocytes in Blood by Automated counon 04-27-2024 WBC corrected for nucl RBC Auto (Bld) [#/Vol] 6.8 10 3/uL 4.0-11.0 [facility] Lymphocytes Auto (Bld) [#/Vo l]on 04-27-2024 Lymphocytes (Bld) [#/Vol] 0.8 10 3/uL Low 1.2-3.8 [facility] Lymphocytes/100 WBC Auto (Bl d)on 04-27-2024 Lymphocytes/100 WBC (Bld) 12.3 % Low 20.5-60.0 [facility] MCH Auto (RBC) [Entitic mass ]on 04-27-2024 MCH (RBC) [Entitic mass] 28.0 pg 25.9-34.0 [facility] MCHC Auto (RBC) [Mass/Vol]on 04-27-2024 MCHC (RBC) [Mass/Vol] 31.9 g/dL 29.9-35.2 [facility] MCV Auto (RBC) [Entitic vol] on 04-27-2024 MCV (RBC) [Entitic vol] 87.8 fL 80.0-94.0 [facility] Monocytes Auto (Bld) [#/Vol] on 04-27-2024 Monocytes (Bld) [#/Vol] 0.2 10 3/uL Low 0.3-0.8 [facility] Monocytes/100 WBC Auto (Bld) on 04-27-2024 Monocytes/100 WBC (Bld) 3.1 % 1.7-12.0 [facility] Neutrophils Auto (Bld) [#/Vo l]on 04-27-2024 Neutrophils (Bld) [#/Vol] 5.7 10 3/uL 1.4-6.5 [facility] Neutrophils/100 WBC Auto (Bl d)on 04-27-2024 Neutrophils/100 WBC (Bld) 84.1 % High 43.0-75.0 [facility] No Panel Informationon 04-27 Eosinophils # (Auto) 0.0 10 3/uL 0.0-0.7 [facility] Immature Granulocyte # (Auto) 0.03 10 3/uL 0.00-0.03 [facility] Platelet mean volume Auto (B ld) [Entitic vol]on 04-27-2024 Platelet mean volume (Bld) [Entitic vol] 12.9 fL 9.5-13.5 [facility] Platelets Auto (Bld) [#/Vol] on 04-27-2024 Platelets (Bld) [#/Vol] 173 10 3/uL 150-450 [facility] RBC Auto (Bld) [#/Vol]on RBC (Bld) [#/Vol] 3.43 10 6/uL Low 4.70-6.10 [facility] Serum or plasma albumin/glob ulin mass ratioon 04-27-2024 Albumin/Globulin [Mass ratio] 0.5 {ratio} [facility] Serum or plasma anion gap de terminationon 04-27-2024 Anion gap [Moles/Vol] 7.6 mmol/L [facility] Ammonium urate crystals dete ction in stone by infrared spectroscopyon 04-26-2024 Ammonium urate crystals Infrared spectroscopy Ql (Stone) TNP . [facility] Basophils Auto (Bld) [#/Vol] on 04-26-2024 Basophils (Bld) [#/Vol] 0.0 10 3/uL 0.0-0.1 [facility] Basophils/100 WBC Auto (Bld) on 04-26-2024 Basophils/100 WBC (Bld) 0.1 % Low 0.2-2.0 [facility] Calcium bilirubinate measure menton 04-26-2024 Calcium bilirubinate (Stone) [Mass fraction] TNP . [facility] Calcium carbonate (Stone) [M ass fraction]on 04-26-2024 Stone Calcium Carbonate TNP . [facility] Calcium hydrogen phosphate d ihydrate (Stone) [Mass fraction]on 04-26-2024 Stone Calcium Hydrogen Phosphate TNP . [facility] Calcium oxalate dihydrate cr ystals detection in stone by infrared spectroscopyon 04-26-2024 Calcium oxalate dihydrate crystals Infrared spectroscopy Ql (Stone) 60 % . [facility] Calcium oxalate monohydrate crystal detectionon 04-26-2024 Calcium oxalate monohydrate crystals Infrared spectroscopy Ql (Stone) 40 % . [facility] Calcium phosphate measuremen ton 04-26-2024 Calcium phosphate (Stone) [Mass fraction] TNP . [facility] Calculus analysis interpreta tion in stoneon 04-26-2024 Calculus analysis [Interp] TNP . [facility] Calculus analysis [Interp] Comment . [facility] Comment on above: Physician questions regarding Calculi Analysis contactLabCorp at: [phone]. Calculus analysis with calcu silvia photography interpretation in stoneon 04-26-2024 Calculus analysis with calculus photography [Interp] Comment . [facility] Comment on above: Photograph will foll ow under a separate cover Cellular material measuremen t in stone by estimated (mass/mass)on 04-26-2024 Cellular material Est (Stone) [Mass/Mass] TNP . [facility] Cholesterol [Mass/volume] in Serum or Plasmaon 04-26-2024 Cholesterol [Mass/Vol] TNP . [facility] Composition of stoneon 04-26 Composition Nom (Stone) Comment . [facility] Comment on above: Percentage (Represen ts the % composition) Cystine measurementon 2023 Cystine (Unsp spec) [Moles/Vol] TNP . [facility] Determination of color of ca lculuson 04-26-2024 Color (Stone) Brown . [facility] Eosinophils/100 WBC Auto (Bl d)on 04-26-2024 Eosinophils/100 WBC (Bld) 1.0 % 0.9-7.0 [facility] Erythrocyte distribution wid th Auto (RBC) [Ratio]on 04-26-2024 Erythrocyte distribution width (RBC) [Ratio] 15.8 % High 11.0-15.0 [facility] Estimated glomerular filtrat ion rate (GFR) non- Americanon 04-26-2024 GFR/1.73 sq M.predicted among non-blacks MDRD (S/P/Bld) [Vol rate/Area] 28 mL/min/{1.73_m2} Low >=60 [facility] Globulin Calc (S) [Mass/Vol] on 04-26-2024 Globulin (S) [Mass/Vol] 4.1 g/dL [facility] Hematocrit Auto (Bld) [Volum e fraction]on 04-26-2024 Hematocrit (Bld) [Volume fraction] 30.3 % Low 42.0-54.0 [facility] Hemoglobin [Mass/volume] in Bloodon 04-26-2024 Hemoglobin (Bld) [Mass/Vol] 9.7 g/dL Low 14.0-18.0 [facility] - Chemistry and C hemistry - challengeon 04-26-2024 Albumin [Mass/Vol] 1.9 g/dL Low 3.4-5.0 [facility] ALP [Catalytic activity/Vol] 122 U/L High 46-116 [facility] ALT [Catalytic activity/Vol] U/L Low 16-63 [facility] AST [Catalytic activity/Vol] 16 U/L 15-37 [facility] Bilirubin [Mass/Vol] 0.5 mg/dL 0.2-1.0 [facility] Calcium [Mass/Vol] 8.3 mg/dL Low 8.5-10.1 [facility] Chloride [Moles/Vol] 107 mmol/L 98-107 [facility] CO2 [Moles/Vol] 29.0 mmol/L 21.0-32.0 [facility] Creatinine [Mass/Vol] 2.32 mg/dL High 0.70-1.30 [facility] GFR/1.73 sq M.predicted MDRD (S/P/Bld) [Vol rate/Area] 34 mL/min/{1.73_m2} Low >=60 [facility] Glucose [Mass/Vol] 84 mg/dL 74-106 [facility] Magnesium [Mass/Vol] 2.0 mg/dL 1.8-2.4 [facility] Potassium [Moles/Vol] 3.7 mmol/L 3.5-5.1 [facility] Protein [Mass/Vol] 6.0 g/dL Low 6.4-8.2 [facility] Sodium [Moles/Vol] 142 mmol/L 136-145 [facility] Urea nitrogen [Mass/Vol] 55.0 mg/dL High 7.0-18.0 [facility] Urea nitrogen/Creatinine [Mass ratio] 23.7 mg/mg [facility] - Hematology and Cell countson 04-26-2024 Immature granulocytes/100 WBC (Bld) 0.5 % 0.0-0.5 [facility] Leukocytes [#/volume] correc jacqueline for nucleated erythrocytes in Blood by Automated counon 04-26-2024 WBC corrected for nucl RBC Auto (Bld) [#/Vol] 13.9 10 3/uL High 4.0-11.0 [facility] Lymphocytes Auto (Bld) [#/Vo l]on 04-26-2024 Lymphocytes (Bld) [#/Vol] 1.3 10 3/uL 1.2-3.8 [facility] Lymphocytes/100 WBC Auto (Bl d)on 04-26-2024 Lymphocytes/100 WBC (Bld) 9.7 % Low 20.5-60.0 [facility] MCH Auto (RBC) [Entitic mass ]on 04-26-2024 MCH (RBC) [Entitic mass] 28.1 pg 25.9-34.0 [facility] MCHC Auto (RBC) [Mass/Vol]on 04-26-2024 MCHC (RBC) [Mass/Vol] 32.0 g/dL 29.9-35.2 [facility] MCV Auto (RBC) [Entitic vol] on 04-26-2024 MCV (RBC) [Entitic vol] 87.8 fL 80.0-94.0 [facility] Measurement of proportion of calculus composed of dried blood (mass/mass)on 04-26-2024 Blood.dried (Stone) [Mass fraction] TNP . [facility] Monocytes Auto (Bld) [#/Vol] on 04-26-2024 Monocytes (Bld) [#/Vol] 0.7 10 3/uL 0.3-0.8 [facility] Monocytes/100 WBC Auto (Bld) on 04-26-2024 Monocytes/100 WBC (Bld) 5.2 % 1.7-12.0 [facility] Neutrophils Auto (Bld) [#/Vo l]on 04-26-2024 Neutrophils (Bld) [#/Vol] 11.6 10 3/uL High 1.4-6.5 [facility] Neutrophils/100 WBC Auto (Bl d)on 04-26-2024 Neutrophils/100 WBC (Bld) 83.5 % High 43.0-75.0 [facility] Newberyite crystals detectio n in stone by infrared spectroscopyon 04-26-2024 Newberyite crystals Infrared spectroscopy Ql (Stone) TNP . [facility] No Panel Informationon 04-26 Stone 2,8 Dihydroxyadenine TNP . [facility] Stone Analysis Disclaimer Comment . [facility] Comment on above: Calculi report will follow via computer, mail or courierdelivery. This test was devlucinao starla and its performance characteristicsdetermined by [employer]. It has not been cleared or approvedby the Food and Drug Administration.Performed at: [facility] [id number] Director: Diamond Phillips PhD, Phone: [phone] [place] Bilirubinate TNP . [facility] Stone Calcium Palmitate TNP . [facility] Stone Calcium Stearate TNP . [facility] Stone Drug or Metabolite TNP . [facility] Stone Other Constituent TNP . [facility] Stone Xanthine TNP . [facility] Eosinophils # (Auto) 0.1 10 3/uL 0.0-0.7 [facility] Immature Granulocyte # (Auto) 0.07 10 3/uL High 0.00-0.03 [facility] Platelet mean volume Auto (B ld) [Entitic vol]on 04-26-2024 Platelet mean volume (Bld) [Entitic vol] 12.1 fL 9.5-13.5 [facility] Platelets Auto (Bld) [#/Vol] on 04-26-2024 Platelets (Bld) [#/Vol] 140 10 3/uL Low 150-450 [facility] RBC Auto (Bld) [#/Vol]on RBC (Bld) [#/Vol] 3.45 10 6/uL Low 4.70-6.10 [facility] Serum or plasma albumin/glob ulin mass ratioon 04-26-2024 Albumin/Globulin [Mass ratio] 0.5 {ratio} [facility] Serum or plasma anion gap de terminationon 04-26-2024 Anion gap [Moles/Vol] 9.7 mmol/L [facility] Size [Entitic volume] of Sto neon 04-26-2024 Size (Stone) [Entitic vol] 2x2 mm . [facility] Comment on above: Multiple pieces rece ived. Dimensions of the largest piecereported. Sodium urate crystals detect ion in stone by infrared spectroscopyon 04-26-2024 Sodium urate crystals Infrared spectroscopy Ql (Stone) TNP . [facility] Specimen source subject [Typ e]on 04-26-2024 Specimen source subject Nom Comment . [facility] Comment on above: Right Ureter Triamterene measurement in c alculuson 04-26-2024 Triamterene (Stone) [Mass fraction] TNP . [facility] Triple phosphate/Total in St oneon 04-26-2024 Triple phosphate (Stone) [Mass fraction] TNP . [facility] Uric acid dihydrate crystals detection in stone by infrared spectroscopyon 04-26-2024 Urate dihydrate crystals Infrared spectroscopy Ql (Stone) TNP . [facility] Basophils Auto (Bld) [#/Vol] on 04-25-2024 Basophils (Bld) [#/Vol] 0.0 10 3/uL 0.0-0.1 [facility] Basophils/100 WBC Auto (Bld) on 04-25-2024 Basophils/100 WBC (Bld) 0.1 % Low 0.2-2.0 [facility] Eosinophils/100 WBC Auto (Bl d)on 04-25-2024 Eosinophils/100 WBC (Bld) 1.3 % 0.9-7.0 [facility] Erythrocyte distribution wid th Auto (RBC) [Ratio]on 04-25-2024 Erythrocyte distribution width (RBC) [Ratio] 14.8 % 11.0-15.0 [facility] Estimated glomerular filtrat ion rate (GFR) non- Americanon 04-25-2024 GFR/1.73 sq M.predicted among non-blacks MDRD (S/P/Bld) [Vol rate/Area] 32 mL/min/{1.73_m2} Low >=60 [facility] Globulin Calc (S) [Mass/Vol] on 04-25-2024 Globulin (S) [Mass/Vol] 3.5 g/dL [facility] Hematocrit Auto (Bld) [Volum e fraction]on 04-25-2024 Hematocrit (Bld) [Volume fraction] 22.3 % Low 42.0-54.0 [facility] Comment on above: RESULTS CALLED TO Philip NELSON)@BY KEREN Monroy at 0514 Hemoglobin [Mass/volume] in Bloodon 04-25-2024 Hemoglobin (Bld) [Mass/Vol] 7.0 g/dL Low 14.0-18.0 [facility] - Chemistry and C hemistry - challengeon 04-25-2024 Albumin [Mass/Vol] 1.7 g/dL Low 3.4-5.0 [facility] ALP [Catalytic activity/Vol] 95 U/L 46-116 [facility] ALT [Catalytic activity/Vol] U/L Low 16-63 [facility] AST [Catalytic activity/Vol] 14 U/L Low 15-37 [facility] Bilirubin [Mass/Vol] 0.4 mg/dL 0.2-1.0 [facility] Calcium [Mass/Vol] 8.0 mg/dL Low 8.5-10.1 [facility] Chloride [Moles/Vol] 111 mmol/L High 98-107 [facility] CO2 [Moles/Vol] 24.2 mmol/L 21.0-32.0 [facility] Creatinine [Mass/Vol] 2.09 mg/dL High 0.70-1.30 [facility] GFR/1.73 sq M.predicted MDRD (S/P/Bld) [Vol rate/Area] 39 mL/min/{1.73_m2} Low >=60 [facility] Glucose [Mass/Vol] 74 mg/dL 74-106 [facility] Potassium [Moles/Vol] 3.9 mmol/L 3.5-5.1 [facility] Protein [Mass/Vol] 5.2 g/dL Low 6.4-8.2 [facility] Sodium [Moles/Vol] 142 mmol/L 136-145 [facility] Urea nitrogen [Mass/Vol] 60.0 mg/dL High 7.0-18.0 [facility] Urea nitrogen/Creatinine [Mass ratio] 28.7 mg/mg [facility] - Hematology and Cell countson 04-25-2024 Immature granulocytes/100 WBC (Bld) 0.4 % 0.0-0.5 [facility] Leukocytes [#/volume] correc jacqueline for nucleated erythrocytes in Blood by Automated counon 04-25-2024 WBC corrected for nucl RBC Auto (Bld) [#/Vol] 13.8 10 3/uL High 4.0-11.0 [facility] Lymphocytes Auto (Bld) [#/Vo l]on 04-25-2024 Lymphocytes (Bld) [#/Vol] 1.7 10 3/uL 1.2-3.8 [facility] Lymphocytes/100 WBC Auto (Bl d)on 04-25-2024 Lymphocytes/100 WBC (Bld) 12.3 % Low 20.5-60.0 [facility] MCH Auto (RBC) [Entitic mass ]on 04-25-2024 MCH (RBC) [Entitic mass] 28.0 pg 25.9-34.0 [facility] MCHC Auto (RBC) [Mass/Vol]on 04-25-2024 MCHC (RBC) [Mass/Vol] 31.4 g/dL 29.9-35.2 [facility] MCV Auto (RBC) [Entitic vol] on 04-25-2024 MCV (RBC) [Entitic vol] 89.2 fL 80.0-94.0 [facility] Monocytes Auto (Bld) [#/Vol] on 04-25-2024 Monocytes (Bld) [#/Vol] 0.8 10 3/uL 0.3-0.8 [facility] Monocytes/100 WBC Auto (Bld) on 04-25-2024 Monocytes/100 WBC (Bld) 6.0 % 1.7-12.0 [facility] Neutrophils Auto (Bld) [#/Vo l]on 04-25-2024 Neutrophils (Bld) [#/Vol] 11.0 10 3/uL High 1.4-6.5 [facility] Neutrophils/100 WBC Auto (Bl d)on 04-25-2024 Neutrophils/100 WBC (Bld) 79.9 % High 43.0-75.0 [facility] No Panel Informationon 04-25 Eosinophils # (Auto) 0.2 10 3/uL 0.0-0.7 [facility] Immature Granulocyte # (Auto) 0.06 10 3/uL High 0.00-0.03 [facility] Platelet mean volume Auto (B ld) [Entitic vol]on 04-25-2024 Platelet mean volume (Bld) [Entitic vol] 12.9 fL 9.5-13.5 [facility] Platelets Auto (Bld) [#/Vol] on 04-25-2024 Platelets (Bld) [#/Vol] 129 10 3/uL Low 150-450 [facility] RBC Auto (Bld) [#/Vol]on RBC (Bld) [#/Vol] 2.50 10 6/uL Low 4.70-6.10 [facility] Serum or plasma albumin/glob ulin mass ratioon 04-25-2024 Albumin/Globulin [Mass ratio] 0.5 {ratio} [facility] Serum or plasma anion gap de terminationon 04-25-2024 Anion gap [Moles/Vol] 10.7 mmol/L Fi [facility] Basophils/100 WBC Manual cnt (Bld)on 04-24-2024 Basophils/100 WBC (Bld) 0.0 % Low 0.2-2.0 [facility] Eosinophils/100 WBC Manual c nt (Bld)on 04-24-2024 Eosinophils/100 WBC (Bld) 0.0 % Low 0.9-7.0 [facility] Erythrocyte distribution wid th Auto (RBC) [Ratio]on 04-24-2024 Erythrocyte distribution width (RBC) [Ratio] 14.6 % 11.0-15.0 [facility] Estimated glomerular filtrat ion rate (GFR) non- Americanon 04-24-2024 GFR/1.73 sq M.predicted among non-blacks MDRD (S/P/Bld) [Vol rate/Area] 33 mL/min/{1.73_m2} Low >=60 [facility] Globulin Calc (S) [Mass/Vol] on 04-24-2024 Globulin (S) [Mass/Vol] 3.7 g/dL [facility] Hematocrit Auto (Bld) [Volum e fraction]on 04-24-2024 Hematocrit (Bld) [Volume fraction] 25.9 % Low 42.0-54.0 [facility] Hemoglobin [Mass/volume] in Bloodon 04-24-2024 Hemoglobin (Bld) [Mass/Vol] 8.2 g/dL Low 14.0-18.0 [facility] - Chemistry and C hemistry - challengeon 04-24-2024 Lactate [Moles/Vol] 1.9 mmol/L 0.4-2.0 [facility] Albumin [Mass/Vol] 1.8 g/dL Low 3.4-5.0 [facility] ALP [Catalytic activity/Vol] 95 U/L 46-116 [facility] ALT [Catalytic activity/Vol] U/L Low 16-63 [facility] AST [Catalytic activity/Vol] 10 U/L Low 15-37 [facility] Bilirubin [Mass/Vol] 0.7 mg/dL 0.2-1.0 [facility] Calcium [Mass/Vol] 7.9 mg/dL Low 8.5-10.1 [facility] Chloride [Moles/Vol] 111 mmol/L High 98-107 [facility] CO2 [Moles/Vol] 23.5 mmol/L 21.0-32.0 [facility] Creatinine [Mass/Vol] 2.02 mg/dL High 0.70-1.30 [facility] GFR/1.73 sq M.predicted MDRD (S/P/Bld) [Vol rate/Area] 40 mL/min/{1.73_m2} Low >=60 [facility] Glucose [Mass/Vol] 97 mg/dL 74-106 [facility] Potassium [Moles/Vol] 3.8 mmol/L 3.5-5.1 [facility] Protein [Mass/Vol] 5.5 g/dL Low 6.4-8.2 [facility] Sodium [Moles/Vol] 142 mmol/L 136-145 [facility] Urea nitrogen [Mass/Vol] 59.0 mg/dL High 7.0-18.0 [facility] Urea nitrogen/Creatinine [Mass ratio] 29.2 mg/mg [facility] - Hematology and Cell countson 04-24-2024 Band form neutrophils/100 WBC (Bld) 5.0 % 0-5 [facility] Lymphocytes/100 WBC (Bld) 1.0 % Low 20.5-60.0 [facility] Monocytes/100 WBC (Bld) 1.0 % Low 1.7-12.0 [facility] Leukocytes [#/volume] correc jacqueline for nucleated erythrocytes in Blood by Automated counon 04-24-2024 WBC corrected for nucl RBC Auto (Bld) [#/Vol] 37.6 10 3/uL High 4.0-11.0 [facility] Comment on above: RESULTS CALLED TO NITHYA BENTON RN MCH Auto (RBC) [Entitic mass ]on 04-24-2024 MCH (RBC) [Entitic mass] 29.0 pg 25.9-34.0 [facility] MCHC Auto (RBC) [Mass/Vol]on 04-24-2024 MCHC (RBC) [Mass/Vol] 31.7 g/dL 29.9-35.2 [facility] MCV Auto (RBC) [Entitic vol] on 04-24-2024 MCV (RBC) [Entitic vol] 91.5 fL 80.0-94.0 [facility] No Panel Informationon 04-24 Absolute Basophils (Manual) 0.00 10 3/uL 0.00-0.10 [facility] Band Neutrophils # (Manual) 1.9 10 3/uL High 0.0-0.3 [facility] Eosinophils # (Manual) 0.00 10 3/uL 0.00-0.70 [facility] Lymphocytes # (Manual) 0.37 10 3/uL Low 1.20-3.80 [facility] Monocytes # (Manual) 0.37 10 3/uL 0.30-0.80 Fi [facility] Segmented Neutrophils # (Manual) 34.96 10 3/uL High 1.4-6.5 [facility] Platelet mean volume Auto (B ld) [Entitic vol]on 04-24-2024 Platelet mean volume (Bld) [Entitic vol] 12.8 fL 9.5-13.5 [facility] Platelets Auto (Bld) [#/Vol] on 04-24-2024 Platelets (Bld) [#/Vol] 195 10 3/uL 150-450 [facility] RBC Auto (Bld) [#/Vol]on RBC (Bld) [#/Vol] 2.83 10 6/uL Low 4.70-6.10 [facility] Segmented neutrophils/100 WB C Manual cnt (Bld)on 04-24-2024 Segmented neutrophils/100 WBC (Bld) 93.0 % [facility] Serum or plasma albumin/glob ulin mass ratioon 04-24-2024 Albumin/Globulin [Mass ratio] 0.5 {ratio} [facility] Serum or plasma anion gap de terminationon 04-24-2024 Anion gap [Moles/Vol] 11.3 mmol/L Fi [facility] Serum procalcitonin measurem enton 04-24-2024 Procalcitonin [Mass/Vol] 66.17 ng/mL High 0.00-0.50 [facility] Basophils Auto (Bld) [#/Vol] on 04-23-2024 Basophils (Bld) [#/Vol] 0.0 10 3/uL 0.0-0.1 [facility] Basophils/100 WBC Auto (Bld) on 04-23-2024 Basophils/100 WBC (Bld) 0.2 % 0.2-2.0 [facility] Eosinophils/100 WBC Auto (Bl d)on 04-23-2024 Eosinophils/100 WBC (Bld) 0.3 % Low 0.9-7.0 [facility] Erythrocyte distribution wid th Auto (RBC) [Ratio]on 04-23-2024 Erythrocyte distribution width (RBC) [Ratio] 14.5 % 11.0-15.0 [facility] Estimated glomerular filtrat ion rate (GFR) non- Americanon 04-23-2024 GFR/1.73 sq M.predicted among non-blacks MDRD (S/P/Bld) [Vol rate/Area] 49 mL/min/{1.73_m2} Low >=60 [facility] Fibrin D-dimer [Presence] in Platelet poor plasma by Latex agglutinationon 04-23-2024 Fibrin D-dimer LA Ql (PPP) 1.33 mg/L FEU High <=0.59 [facility] Comment on above: RESULTS CALLED TO [...] on 04-23-2024 Globulin (S) [Mass/Vol] 4.6 g/dL [facility] Hematocrit Auto (Bld) [Volum e fraction]on 04-23-2024 Hematocrit (Bld) [Volume fraction] 36.3 % Low 42.0-54.0 [facility] Hemoglobin [Mass/volume] in Bloodon 04-23-2024 Hemoglobin (Bld) [Mass/Vol] 11.1 g/dL Low 14.0-18.0 [facility] INR in Platelet poor plasma by Coagulation assayon 04-23-2024 INR Coag (PPP) [Relative time] 1.09 {INR} [facility] Comment on above: DESIRED INR:2.0-3.0 CONDITIONS NOT LISTED BELOW2.5-3.5 FOR PROSTHETIC HEART VALVE REPLACEMENT2.5-3.5 RECURRENT THROMBOSIS Laboratory - Chemistry and C hemistry - challengeon 04-23-2024 HCO3 (Bld) [Moles/Vol] 19.4 mmol/L Low 22.0-26.0 [facility] Lactate [Moles/Vol] 1.5 mmol/L 0.4-2.0 [facility] Bilirubin Ql (U) Negative NEGATIVE [facility] Glucose (U) [Mass/Vol] Negative [facility] Ketones Ql (U) Negative NEGATIVE [facility] pH (U) 7.5 [pH] 5.0-9.0 [facility] Specific gravity (U) [Rel density] 1.020 1.005-1.02 5 [facility] Urobilinogen Qn (U) 0.2 {Phillip'U}/dL 0.2-1.0 [facility] Albumin [Mass/Vol] 2.6 g/dL Low 3.4-5.0 [facility] ALP [Catalytic activity/Vol] 119 U/L High 46-116 [facility] ALT [Catalytic activity/Vol] 9 U/L Low 16-63 [facility] AST [Catalytic activity/Vol] 15 U/L 15-37 [facility] Bilirubin [Mass/Vol] 0.8 mg/dL 0.2-1.0 [facility] Calcium [Mass/Vol] 8.8 mg/dL 8.5-10.1 [facility] Chloride [Moles/Vol] 108 mmol/L High 98-107 [facility] CO2 [Moles/Vol] 23.3 mmol/L 21.0-32.0 [facility] Creatinine [Mass/Vol] 1.45 mg/dL High 0.70-1.30 [facility] GFR/1.73 sq M.predicted MDRD (S/P/Bld) [Vol rate/Area] 59 mL/min/{1.73_m2} Low >=60 [facility] Glucose [Mass/Vol] 131 mg/dL High 74-106 [facility] Natriuretic peptide B (Bld) [Mass/Vol] 1488.0 pg/mL High <=900.0 [facility] Comment on above: RESULTS CALLED TO DR Alejandro CRAMER Potassium [Moles/Vol] 3.8 mmol/L 3.5-5.1 [facility] Protein [Mass/Vol] 7.2 g/dL 6.4-8.2 [facility] Sodium [Moles/Vol] 145 mmol/L 136-145 [facility] Urea nitrogen [Mass/Vol] 47.0 mg/dL High 7.0-18.0 [facility] Urea nitrogen/Creatinine [Mass ratio] 32.4 mg/mg [facility] Laboratory - Hematology and Cell countson 04-23-2024 Immature granulocytes/100 WBC (Bld) 1.0 % High 0.0-0.5 [facility] Laboratory - Microbiology an d Antimicrobial susceptibilityon 04-23-2024 S. agalactiae Org specific cx Ql (Vag fld) Not detected NOT DETECTE [facility] SARS-CoV-2 (COVID-19) RNA KELLIE+probe Ql (Unsp spec) Negative NEGATIVE [facility] Comment on above: This test has [...] on 04-23-2024 Bacteria identified Cx Nom (U) [facility] Laboratory - Specimen inform ationon 04-23-2024 Appearance (U) CLOUDY Abnormal CLEAR [facility] Color (U) YELLOW YELLOW [facility] Laboratory - Urinalysison Leukocyte esterase Test strip Ql (U) MODERATE Abnormal NEGATIVE [facility] Mucus Ql (Urine sed) TRACE Abnormal NONE SEEN [facility] Nitrite Ql (U) Positive Abnormal NEGATIVE [facility] Protein Ql (U) 100 mg/dL Abnormal NEG/TRACE [facility] Leukocytes [#/volume] correc jacqueline for nucleated erythrocytes in Blood by Automated counon 04-23-2024 WBC corrected for nucl RBC Auto (Bld) [#/Vol] 15.8 10 3/uL High 4.0-11.0 [facility] Lymphocytes Auto (Bld) [#/Vo l]on 04-23-2024 Lymphocytes (Bld) [#/Vol] 2.4 10 3/uL 1.2-3.8 [facility] Lymphocytes/100 WBC Auto (Bl d)on 04-23-2024 Lymphocytes/100 WBC (Bld) 15.3 % Low 20.5-60.0 [facility] MCH Auto (RBC) [Entitic mass ]on 04-23-2024 MCH (RBC) [Entitic mass] 28.4 pg 25.9-34.0 [facility] MCHC Auto (RBC) [Mass/Vol]on 04-23-2024 MCHC (RBC) [Mass/Vol] 30.6 g/dL 29.9-35.2 [facility] MCV Auto (RBC) [Entitic vol] on 04-23-2024 MCV (RBC) [Entitic vol] 92.8 fL 80.0-94.0 [facility] Monocytes Auto (Bld) [#/Vol] on 04-23-2024 Monocytes (Bld) [#/Vol] 0.1 10 3/uL Low 0.3-0.8 [facility] Monocytes/100 WBC Auto (Bld) on 04-23-2024 Monocytes/100 WBC (Bld) 0.7 % Low 1.7-12.0 [facility] Neutrophils Auto (Bld) [#/Vo l]on 04-23-2024 Neutrophils (Bld) [#/Vol] 13.0 10 3/uL High 1.4-6.5 [facility] Neutrophils/100 WBC Auto (Bl d)on 04-23-2024 Neutrophils/100 WBC (Bld) 82.5 % High 43.0-75.0 [facility] No Panel Informationon 04-23 Raf Test Positive POSITIVE [facility] Arterial Blood Base Excess -6.3 mmol/L Low <2.0-2.0 [facility] Arterial Blood Oxygen Saturation >100.0 % [facility] Arterial Blood Partial Pressure CO2 35.7 mm[Hg] 35.0-45.0 [facility] Arterial Blood Partial Pressure O2 307.0 mm[Hg] High 80.0-100.0 [facility] Arterial Blood pH 7.344 Low 7.350-7.45 0 [facility] Blood Gas Liter Flow 15 [facility] Blood Gas Sample Site RR [facility] Oxygen Delivery Device NRBM [facility] A.calcoaceticus-china samantha cmplx PCR Not detected NOT DETECTE [facility] Bacteroides fragilis (PCR) Not detected NOT DETECTE [facility] Blood Culture Source Blood [facility] Tiffany albicans (PCR) Not detected NOT DETECTE [facility] Tiffany auris (PCR) Not detected NOT DETECTE [facility] Tiffany glabrata (PCR) Not detected NOT DETECTE [facility] Tiffany krusei (PCR) Not detected NOT DETECTE [facility] Tiffany parapsilosis (PCR) Not detected NOT DETECTE [facility] Tiffany tropicalis (PCR) Not detected NOT DETECTE [facility] Crypto neoformans/gattii (PCR)(LAB) Not detected NOT DETECTE [facility] CTX-M ESBL (PCR) Not detected NOT DETECTE [facility] Enterobacter cloacae complex (PCR) Detected Abnormal NOT DETECTE [facility] Comment on above: RESULTS CALLED TO CHARLIE THAO RN Enterobacterales (PCR) Detected Abnormal NOT DETECTE [facility] Comment on above: RESULTS CALLED TO CHARLIE THAO RN Enterococcus faecalis PCR Not detected NOT DETECTE [facility] Enterococcus faecium PCR Not detected NOT DETECTE [facility] Escherichia coli Result Not detected NOT DETECTE [facility] Haemophilus influenzae DNA Not detected NOT DETECTE [facility] IMP (blaIMP) Carbap Res Gene (PCR) Not detected NOT DETECTE [facility] Klebsiella aerogenes (PCR) Not detected NOT DETECTE [facility] Klebsiella oxytoca (PCR) Not detected NOT DETECTE [facility] Klebsiella pneumoniae group (PCR) Not detected NOT DETECTE [facility] KPC (blaKPC) Detection (PCR) Not detected NOT DETECTE [facility] Listeria monocytogenes (PCR) Not detected NOT DETECTE [facility] MCR-1 Resistance Gene Not detected NOT DETECTE [facility] mecA/C & MREJ Antimicrob Resist Gen NOT APPLICABLE NOT DETECTE [facility] mecA/C-Methicillin Resistance Gene NOT APPLICABLE NOT DETECTE [facility] NDM (blaNDM) Detection (PCR) Not detected NOT DETECTE [facility] Neisseria meningitidis (PCR) Not detected NOT DETECTE [facility] Proteus species (PCR) Not detected NOT DETECTE [facility] Pseudomonas aeruginosa (PCR) Not detected NOT DETECTE [facility] Salmonella spp. (PCR) Not detected NOT DETECTE [facility] Serratia marcescens (PCR) Not detected NOT DETECTE [facility] Staphylococcus aureus (PCR)(LAB) Not detected NOT DETECTE [facility] Staphylococcus epidermidis (PCR) Not detected NOT DETECTE [facility] Staphylococcus lugdunensis (TEM-PCR Not detected NOT DETECTE [facility] Staphylococcus species (PCR) Not detected NOT DETECTE [facility] Stenotroph. maltophilia (PCR) Not detected NOT DETECTE [facility] Streptococcus pneumoniae (PCR) Not detected NOT DETECTE [facility] Streptococcus pyogenes (PCR)(LAB) Not detected NOT DETECTE [facility] Streptococcus species (PCR) Not detected NOT DETECTE [facility] Syn OXA-48-like Carb Res Gene (PCR) Not detected NOT DETECTE [facility] Jessica/B-Vancomycin Resistance Genes NOT APPLICABLE NOT DETECTE [facility] VIM (blaVIM) Carbap Res Gene (PCR) Not detected NOT DETECTE [facility] Urine Bacteria MODERATE #/HPF Abnormal NONE SEEN [facility] Urine Culture Reflexed YES [facility] Urine Microscopic Review YES [facility] Urine Occult Blood SMALL Abnormal NEGATIVE [facility] Urine Other Casts NONE SEEN #/LPF NONE SEEN [facility] Urine Other Crystals None Seen #/HPF None Seen [facility] Urine RBC 10-20 #/HPF Abnormal 0-2 [facility] Urine Squamous Epithelial Cells FEW #/LPF Abnormal NONE/RARE [facility] Urine WBC 20-50 #/HPF Abnormal NONE SEEN [facility] Eosinophils # (Auto) 0.1 10 3/uL 0.0-0.7 [facility] Immature Granulocyte # (Auto) 0.16 10 3/uL High 0.00-0.03 [facility] Troponin I High Sensitivity 8.3 pg/mL 4.0-76.1 [facility] Comment on above: CUT-OFF POINTS HAVE [...] Mercedez Cramer on 04-23-2024 Blood Culture 2 [facility] Blood Culture 1 [facility] Platelet mean volume Auto (B ld) [Entitic vol]on 04-23-2024 Platelet mean volume (Bld) [Entitic vol] 12.5 fL 9.5-13.5 [facility] Platelets Auto (Bld) [#/Vol] on 04-23-2024 Platelets (Bld) [#/Vol] 318 10 3/uL 150-450 [facility] Prothrombin time (PT)on PT Coag (PPP) [Time] 11.5 s 9.0-11.6 [facility] RBC Auto (Bld) [#/Vol]on RBC (Bld) [#/Vol] 3.91 10 6/uL Low 4.70-6.10 [facility] Serum or plasma albumin/glob ulin mass ratioon 04-23-2024 Albumin/Globulin [Mass ratio] 0.6 {ratio} [facility] Serum or plasma anion gap de terminationon 04-23-2024 Anion gap [Moles/Vol] 17.5 mmol/L [facility] Coding Summary.on 04-13-2024 Coding Summary. THKABzad87ZPr5pUc+PG hlYWQ +GB2KELNvG67myKWaaT2aJ6ZP TElOSywgQVBQTElOSyIgbmFtZ V4yrXDaKOYg IC8+UO2rOWIwMmnlsRZis1N0d MZ0U48cyq5yZCiauZZ5DFFuNp Gninuue9rtqAq0ZYvdFtfmCdL t XUEytM41CYT1lQ83Ag03rZKeq OSho7ucpJl0CuUdHOFwNZR1lE utRGyrk4BsKXDdL96zoHWzb6S 6 YDQavZiidPZcXkVkvUQ7jH2zP Qawmayvv3qqfomdDet4ha52vP Myp5V0zGS1Y0RokyG1SCOpbRM g HofvmASWmB1nipvjr1uehscuW jTzQADuFBj8XXx1TTExlUpsSb QjWM88SPM2VZPprgYbZ8CnWLG s hJypCgQ9a9J1Cb1RO0FLKwocJ 1VNTUFSWTwvdGQ+YV65gs88I0 HjLntlXrq2NEYgKAO3pJG9fY7 n NJLkLAyfg8C3pUY4D0KecqPzs r9yg2wkOOIhEHsvU39xlRKza6 N9WFFuyYJ4LIQpcZaxPqFduM0 3 Oyc+ENItwNsrc0IlKqjxa1lgt 4vnaTx9UpitNMTwuyHpaJodBO N8t6AiTo3oMPJstCK0sMD3pH3 i StMdRwK9ZNfzQ303EbDrxHOsV qmrU08dS8JcmIY+YMYhZmr3SL LpeDydPW7lR7FzBEOwklnahLF m zJwvSV1iTQKpsggjAWRoeM5oT KYyG3d6XaUaCwY8MVllN6ZbHH DeoxmjTk52vA9qPlEaAzV6RRz u W6VfccL4FLUwnMOzMRdwWJR2X 87gw3M9VURuJKBcZTY2aDU3fF 1hbGlnbjogbGVmdDsgdmVydGl j PXneGGtvQ865DCVjgVrfEzNiE GluZyBEYXRlOiAgMDYvMjYvMj AyNDwvdGQ+KWArJIY3nBqoWSV n jHUmXMmoAy1caLqbmVseXF5rQ RHshgzjYQPgbP1eJBTylDFefK hqNY3eAMOjwhrhc739XoTsQAE 0 ZDRnfYPvP6UxcY1dDnZoPBAjR WDpQ9MqaHJlFCgaN301CJbkEb Z7YBFkspCvX1FtDDNkyHvpLxO 0 x6I5Rn3Ew0FzicgmY5PglSFvD sJcRdsoSJn7I8DkNaeshEQ+PC 82GDXjSI38TPc4QAU7eXsfELh i TMKkG3QeeX0gKuVyEMEmMRUlE yc+PHRhYmxlIHdpZHRoPScxMD VtWkHjgGmnJN8vDs0zJMKkFSD v fQfjkXMeOeRax8hfBDDuWAbtH Q0xuJnaH1VizKM7GURtq0h3Rv 61H97mA7UrrXP+AROewZJ3fYV 0 oZ3uFiZvDoE1MFewI508EbZsa PJmHbgnk6jdh3qkgQr4OdJ4CE RmwjOrlMcuUNB9h7OnLz69O40 s IHdpZHRoPSIxNSUiIHZhbGlnb b8pvI2kTg3+TUPduZW6yMI8mZ 6lLfIfWqY0MHlhI784RgUqkDF v Oorsk7rqi7nffBv4XtOoQNRek aNgdSfiFII8t0NyZa21P6IdeT ajv2EcKip6gp17xGTct7E0gRE 9 O6OiFQKfyqutxUHzoJalEN6hP XVzxdmpKFMdwI1xSWNlO7a4Sa HaOjW6DZpdG7GcluG3GSTfuVB g IPBaxXZClY4bppsro6fsdhpeR rYpQUReUEf9ABa4YPEiaDncFu EnQRB6TiY1XMJ9aFFvjX5irIm n hvekzZ5qVri+RAR6iVLxyLGSE C1xEqqdwLQ+VGCsOEE8rIczRP heKDCuwN9oZDYcW6m1QyLvUiL 1 FMtnA7AbcoK5WYQcwQIdAEIqm DHSnZ6gghhxl6csbctoFlPnRH FxAUa0PMm3KIFxwJpqEjAyVJR 0 VdO0QOG6jEQedG6yvZtojtmcl G9wOyc+XrawfXlcTQT9BEv6A2 WfQnh0YWGviCrqLE8amFZsGEt u En6xbQropPpnSM3vWDZdkioki 099HoIdb4ebIFCegRVjPPqlID I1N89yd1P7YPHwAVEqPDN6eHN 4 kX9ghMqwshzxjOMjmHbhxiHsg AlcZRseTDlqU571XCHrvCjqSx VqMJp5O2ZgIbz8JQLypHziXM2 n iEVzSOynGc5arJtlmSorBL9hY NCcrybnn402AaClo5kaQUXbbM EfQPkdOKG5I36av0H2LGLyEOH w OBJ4iYP8zJ0wdEjjqyxhmYRkf VfgssKvxDraNByqPEvpE346QO FrcAhoHaOrfWd3V1NmQio8SFO z pGqyYB4smYVhHBpfSx4oqUsir GaaMK4eICNdonhnr695KoBnr3 ehNVItbEEkPHnqSYJ1A90sp6C 6 JUWqFYMeLAQ2tWL4wV2zgAhlo jogbGVmdDsgdmVydGljYWwtYW haV540EMThxNsbWsDhrIvqzaJ g PRomERq6Q2XfGnatcZZ+PC90Y WCxJN81xCKzpNNkh8aefKj2Bd IlVFUpSJI3pWjmGCzou8IrQFT t Y73ciXCnl4C1UDNoqCfwdZOnI cJszMT6dC0uZGijduzed8oxwq beYlysv5pymo71fR37S29gHEx p XWTuKKAzNYCqLXGnhWmvgm4qc G9wIi8+WCOfzQS0nAV2tM8qFW EfHkT8JOtcK430QwFghGEkEtz j g4smy5piqIf5GoS6EIKxddNxd PdsMSU0r6QfQi65T03tXQceXV BtORCdBRPiRPAsrBqgfp4ucV9 w Ii8+MXSkuMB2oYA1eX5eCoGvR uV7GHaxJ707TzMehDJqGmtfK2 7aF0MyxYS+OYPsIsz4AXOngWu s NB2shRBaJGejBi8sYWS8LzVyU wEwDJsrL2KjRRHiwxesmvhxhT D9USSsIXAzlK02Sg0flHswWDX w aVAByZ0ycdovr7wbfwfnZoXlJ FAuLAg2YXk3DKYhvRwhPyDvND H8CtM8LID3gBUioE8kdCrbghc g tS2gF4EdXFDqnnxyRu54uV3cS hThCxL3MYdiPbx+D2MJRKDgYH NIQVJMRVMgTDwvdGQ+PHRkIHN 0 iHccERawVOVmfV3uBTXrU8t6Y wFyPuQ9FUtmO2CwXFNzyxxtPl 84gP4tUvYeHmL2UCmaY6OjdxE 6 RCQitOLsNJjsBWI2D07ze7Y2H XAnCHZhUOT5lUX8iJ6lkScouw ogbGVmdDsgdmVydGljYWwtYWx p N648NZMwsDzjFpLnPsU9LwX8E Cu5O4AsEnc4HICflFsgOA8ghO CiLXgdWe1xeJywpLntCO0sFNZ p inpyJUTowT0lXFTvhPYmeKwfF A5fYRYgdufei460OdLsTME1HZ YzmQYhH4OchP1lJhIrNIMvAED w O5NgoYCtJDpjR656NHtaAfR8X WGdhkVbZ8FuTJWvjRawVjZ5u0 O8Fe97RMJMMNBtfmdlkNS+PHR k JPV8aSsaXMmrRQIaiK5wZUYkL 8v2PeFfHhL2PKavD6CyREGyff xkCn81yB3uQhFeNyU4YBwuB5E v srW0XLWwkSIyZVjdRKK7W64sa 6K4AEDcABIlTUZ1vNA7kS4zdD lnbjogbGVmdDsgdmVydGljYWw t CWldB470PUVziVftDj3kaZW1D 7NgTjo1SMJfwFcgBE1qiTSbWW skKd0kjYsivWwqFK4aHZKbuuh w ZQXrlL7uAKItlFIxmMbrBC2zH KGctjppi475BkRvHDN5CEJsjO EiN4ZxzO8iDpMsXFFkMWApZ7G l jYZbNOzrL646AXsbSrL4GTPdb zOpO0FgCUZdsJtwJgD2l6H4To 7PKNZrBMBgqVZaNwN8S4RhQwk v dHI+JT63YKIwSX36mLHbkTXhk 2yemJv5RwCsNXHxPNM3wWvyUV bnw1IeWLBqA22xbQHvy7X9THB v tVogxPGiSeQbqOJ4mO3rBHpic dgyn4uhcctnMgppm6tydr61pI 32O97bCCdbOIMlWELhFZLuHLX h dHgigk4kqD0jWd7+SWUcnBK2b SX8fE2qQhRvEbT3CVcrC807Mk CjuCDhWfmaf8rzn6houLm9PwE w LQZlltRllErqZRL8p8GlBe51S 29sIHdpZHRoPSIyMCUiIHZhbG aivx1blC2mQy3+HI8tt5enyb7 1 aR73zVG+NBJiXSQ5fKtzADlgG FTriY0zMQowGeM3WPVhOkGhkO 69eTAmFIxyYx5nmPpipJogTI6 w RQTgwfmbg533YvHxi9ahACMvo BNnARbgXFT3H80pm9D9SKZqYF NhQEI8aGX9rE3uzXmxhplcmGH m eShgwqQniUusLCzpNIyyV985T RSlhFhxFbQqeYZhD9apmrXHMN 1lOjwvdGQ+XJHlYST7jUvmOFx w VETjoR6cYOGfG8l8ZaRgQcR3G OfnU0NbmaH5EWMvtQDbWCIonD HGtI9dhqobf0frnpbuHmRjTHJ w WMn9UJf6ITAolExiHfEaBXD2K wU4DAB9iSZisS9siFvtjrwaxS 9wOyc+RklOOjwvdGQ+PHRkIHN 0 aQzdXMzhSBTgsH6eZTYgH9o8T rPsLiO3JXwsT8UhkuW5QKGrnO LsNJAobFTCbS4qksvgj9cowfn g ZyQxPACqKEp7UIw0DZEkiBhwE vTyCCK7VxE8EXL2bKIbgP5naK ajivpihG1jGtr+TVJOOjwvdGQ + QMAhPGQ0gVumYPpiMCGfjU6pA WEzG7q3BkZqSuG2UEvcF8Cgol S7TXGesMSuHINabVGDlJ4pmmv j w2ofhbujAmLmTKKoEYd5FEg8F MKpoCgfNqNiFPY1YyI0ETO7sS ZsxK2qzUfrsxflvT7sKuf+UGF 5 EEM4BU02BP49O7WfXwrcnYHqi +PHRhYmxlIHdpZHRoPScxMD HpElGavBvaLF7cFw7dCOAeZON v bGxhcHNlOiBjb (more content not included)... [facility] Patient Letter FTon 2023 Patient Letter [facility] (Inserted Image. Nette ble to display) April 11, 2024 [address]A [address] [place] [address] [place] [address] : 1960 Dear Alisia Correa, We have been trying to reach you with no success. It is important that you return our call regarding your recent lab result upon receiving this letter. Also, at the time of your call, please provide us with your current information. Thank you for your prompt attention to this matter. Sincerely, [facility] [address] [address] [facility] C Urineon 04-07-2024 Bacteria identified Cx Nom (U) Microbiology PROCEDURE: Urine Culture [R1] SOURCE: U Random BODY SITE: COLLECTED DATE/TIME: 04/05/2024 15:30 EDT RECEIVED DATE/TIME: 04/05/2024 18:24 EDT START DATE/TIME: 04/05/2024 18:24 EDT FREE TEXT SOURCE: Dakota POT OPERATOR, CLOTHES DRIER REPAIRER-C, [place] POT OPERATOR, CLOTHES DRIER REPAIRER-C, Pippa X Pippa X FINAL REPORTS Final [...] Locations R1: This test was performed at: [facility], [address] [place] [address], [phone] , [place], Normal [facility] Comment on above: Performed By: #### [id number] #### [facility] [address] [place] [id number] RAD - MISCon 03-25-2024 RAD - MISC [id number] [facility] RAD - Ultrasound Reporton RAD - Ultrasound Report [id number] [facility] Patient Educationon 03-15-20 24 Patient Education [...] Follow these instructions at home: ? Take dgkk-kka-odzlkdk and prescription medicines as told by your [...] get worse. (more content not included)... [facility] Urology Office/Clinic Noteon 03-15-2024 Urology Office/Clinic [...] of cefdinir. Discussed with the patient starting sahf-ajn-zexbdye UTI prevention supplements including d-mannose, Cranberry and [...] Kidney Stones Antibiotic Medicine, Adult Kidney Stones, Fwhb-pq-[id number] Benign Prostatic Hyperplasia Problem List/Past Medical History [...] Urinary reten (more content not included)... [facility] Comment on above: Result Comment: Elec tronically Signed By: TITI Duncan APRN, [place] X\.betty\Date and Time Signed: 03/15/24 13:28 EDT Provider Letteron 03-01-2024 Provider Letter (Inserted Image. Nette ble to display) March 01, 2024 ALISIA COR[address]A [address] [place] [address] : 1960 Dear Alisia Correa, We have been trying to reach you with no success. It is important that you return our call regarding your lab results upon receiving this letter. Also, at the time of your call, please provide us with your current information. Thank you for your prompt attention to this matter. Sincerely, [facility] [address] [place] [address] [facility] C Urineon 02-25-2024 Bacteria identified [...] Locations R1: This test was performed at: [facility], [address] [place] [address], [id number] , , [facility] Comment on above: Performed By: #### [id number] #### [facility] [address] [place] [address] Glucose Glucometer (BldC) [M ass/Vol]Ordered By: Bernice Shrestha on 02-11-2024 Glucose [Mass/Vol] 70 mg/dL [facility] Comment on above: Random Glucose Refer ence Range is dependent on time and content of last meal. Glucose of more than 200 mg/dL in a nonstressed, ambulatory subject supports the diagnosis of Diabetes Mellitus. Pre-Certification Formon Pre-Certification Form [id number] [facility] Ambulatory Visit Summaryon 0 01-11-2024 [...] 11:00 AM EDT Where: [facility] Basophils Auto (Bld) [#/Vol] on 01-06-2024 Basophils (Bld) [#/Vol] 0.0 10 3/uL 0.0-0.1 [facility] Basophils/100 WBC Auto (Bld) on 01-06-2024 Basophils/100 WBC (Bld) 0.6 % 0.2-2.0 [facility] Eosinophils/100 WBC Auto (Bl d)on 01-06-2024 Eosinophils/100 WBC (Bld) 3.2 % 0.9-7.0 [facility] Erythrocyte distribution wid th Auto (RBC) [Ratio]on 01-06-2024 Erythrocyte distribution width (RBC) [Ratio] 14.6 % 11.0-15.0 [facility] Estimated glomerular filtrat ion rate (GFR) non- Americanon 01-06-2024 GFR/1.73 sq M.predicted among non-blacks MDRD (S/P/Bld) [Vol rate/Area] mL/min/{1.73_m2} >=60 [facility] Hematocrit Auto (Bld) [Volum e fraction]on 01-06-2024 Hematocrit (Bld) [Volume fraction] 40.9 % 42.0-54.0 [facility] Hemoglobin [Mass/volume] in Bloodon 01-06-2024 Hemoglobin (Bld) [Mass/Vol] 12.6 g/dL 14.0-18.0 [facility] - Chemistry and C hemistry - challengeon 01-06-2024 Calcium [Mass/Vol] 8.5 mg/dL 8.5-10.1 [facility] Chloride [Moles/Vol] 106 mmol/L 98-107 [facility] CO2 [Moles/Vol] 24.7 mmol/L 21.0-32.0 [facility] Creatinine [Mass/Vol] 1.14 mg/dL 0.70-1.30 [facility] GFR/1.73 sq M.predicted MDRD (S/P/Bld) [Vol rate/Area] mL/min/{1.73_m2} >=60 [facility] Glucose [Mass/Vol] 70 mg/dL 74-106 [facility] Lactate [Moles/Vol] 1.4 mmol/L 0.4-2.0 [facility] Potassium [Moles/Vol] 3.6 mmol/L 3.5-5.1 [facility] Sodium [Moles/Vol] 140 mmol/L 136-145 [facility] Urea nitrogen [Mass/Vol] 25.0 mg/dL 7.0-18.0 [facility] Urea nitrogen/Creatinine [Mass ratio] 21.9 mg/mg [facility] - Hematology and Cell countson 01-06-2024 Immature granulocytes/100 WBC (Bld) 0.4 % 0.0-0.5 [facility] - Microbiology an d Antimicrobial susceptibilityOrdered By: Ellen Crabtree on 01-06-2024 Bacteria identified Cx Nom (U) [facility] Leukocytes [#/volume] correc jacqueline for nucleated erythrocytes in Blood by Automated counon 01-06-2024 WBC corrected for nucl RBC Auto (Bld) [#/Vol] 5.3 10 3/uL 4.0-11.0 [facility] Lymphocytes Auto (Bld) [#/Vo l]on 01-06-2024 Lymphocytes (Bld) [#/Vol] 2.2 10 3/uL 1.2-3.8 [facility] Lymphocytes/100 WBC Auto (Bl d)on 01-06-2024 Lymphocytes/100 WBC (Bld) 41.9 % 20.5-60.0 [facility] MCH Auto (RBC) [Entitic mass ]on 01-06-2024 MCH (RBC) [Entitic mass] 28.5 pg 25.9-34.0 [facility] MCHC Auto (RBC) [Mass/Vol]on 01-06-2024 MCHC (RBC) [Mass/Vol] 30.8 g/dL 29.9-35.2 [facility] MCV Auto (RBC) [Entitic vol] on 01-06-2024 MCV (RBC) [Entitic vol] 92.5 fL 80.0-94.0 [facility] Monocytes Auto (Bld) [#/Vol] on 01-06-2024 Monocytes (Bld) [#/Vol] 0.6 10 3/uL 0.3-0.8 [facility] Monocytes/100 WBC Auto (Bld) on 01-06-2024 Monocytes/100 WBC (Bld) 12.0 % 1.7-12.0 [facility] Neutrophils Auto (Bld) [#/Vo l]on 01-06-2024 Neutrophils (Bld) [#/Vol] 2.2 10 3/uL 1.4-6.5 [facility] Neutrophils/100 WBC Auto (Bl d)on 01-06-2024 Neutrophils/100 WBC (Bld) 41.9 % 43.0-75.0 [facility] No Panel Informationon 01-05 Eosinophils # (Auto) 0.2 10 3/uL 0.0-0.7 [facility] Immature Granulocyte # (Auto) 0.02 10 3/uL 0.00-0.03 [facility] Platelet mean volume Auto (B ld) [Entitic vol]on 01-06-2024 Platelet mean volume (Bld) [Entitic vol] 13.0 fL 9.5-13.5 [facility] Platelets Auto (Bld) [#/Vol] on 01-06-2024 Platelets (Bld) [#/Vol] 153 10 3/uL 150-450 [facility] RBC Auto (Bld) [#/Vol]on RBC (Bld) [#/Vol] 4.42 10 6/uL 4.70-6.10 [facility] Serum or plasma anion gap de terminationon 01-06-2024 Anion gap [Moles/Vol] 12.9 mmol/L [facility] Pre-Certification Formon Pre-Certification Form [id number]#1.00TIFF Normal [facility] Ambulatory Visit Summaryon 0 11-17-2023 Ambulatory Visit Summary ALISIA CORREA :1960 Visit Date:11/17/2023 Ambulatory Visit Instructions Your Care Team Attending Physician - FRED YBARRA, Fidel Hinkle Primary Care Physician - [...] 11:30 AM EST Where: [facility] Pre-Certification Formon Pre-Certification Form [id number]#1.00TIFF [facility] A1C HEMOGLOBINon 11-10-2023 HbA1c (Bld) [Mass fraction] 5.7 % [facility] Other HbA1c (Bld) [Mass fraction]o n 11-10-2023 A1C HEMOGLOBIN [facility] Other C Urineon 10-23-2023 Bacteria identified Cx Nom (U) Microbiology PROCEDURE: Urine Culture [R1] SOURCE: U Cath BODY SITE: COLLECTED DATE/TIME: 10/21/2023 12:49 EST RECEIVED DATE/TIME: 10/21/2023 18:45 EST START DATE/TIME: 10/21/2023 18:45 EST FREE TEXT SOURCE: FRED YBARRA, Fidel IBARRA MD, Fidel Hinkle FINAL [...] Locations R1: This test was performed at: [facility], [address] [place] [address], [facility] , , [facility] Comment on above: Performed By: #### 2 [id number] #### [facility] [address] [place] [address] Ambulatory Visit Summaryon 0 10-22-2023 Ambulatory Visit Summary SUNNY ALISIA Cox :1960 Visit Date:10/21/2023 Ambulatory Visit [...] 11:00 AM EST Where: [facility] Ambulatory Visit Summaryon 11-15-2022 Ambulatory Visit Summary ALISIA CORREA :1960 Visit Date:09/15/2023 Ambulatory Visit Instructions Your Care Team Attending Physician - FRED YBARRA, Fidel Hinkle Primary Care Physician - [...] 11:00 AM EST Where: [facility] Lab Reportson 08-28-2023 Lab Reports [id number]#1.00TIFF [facility] Formson 08-27-2023 Forms [id number]#1.00TIFF [facility] RAD - CT Reporton 08-24-2023 RAD - CT Report [id number]#1.00TIFF [facility] RAD - MISCon 08-17-2023 RAD - MISC [id number]#1.00TIFF [facility] Physician Orderon 08-03-2023 Physician Order [id number]#1.00TIFF [facility] Physician Orderon 07-27-2023 Physician Order [id number]#1.00TIFF [facility] C Urineon 07-21-2023 Bacteria identified [...] Locations R1: This test was performed at: [facility], [address] [place] [address], [id number]- , , [facility] Comment on above: Performed By: #### 2 [id number] #### [facility] [address] [place] [address] Provider Letteron 07-13-2023 Provider Letter (Inserted Image. Nette ble to display) July 13, 2023 ALISIA CORREA [address] [place], [place] [address] [place] [address] : 1960 Dear Mr. Correa, We have been trying to reach you with no success. It is important that you return our call regarding your recent injections upon receiving this letter. Also, at the time of your call, please provide us with your current information. Please call our office at [phone]. Thank you for your prompt attention to this matter. Sincerely, [facility] [address] [place] [address] [place] [address] [facility] Lab Reportson 07-08-2023 Lab Reports [id number]#1.00CD:12 7 Normal [facility] Gent Levelon 07-01-2023 GENTAMICIN 8.8 microgram/mL Normal 0.5-10.0 [facility] Comment on above: Performed By: #### 2 [id number] ####[facility] [address] [place] [facility] [place] [address] Lab Reportson 07-01-2023 Lab Reports [id number]#1.00CD:12 7 Normal [facility] Physician Orderon 07-01-2023 Physician Order [id number]#1.00CD:12 7 Normal [facility] Physician Order [id number]#1.00CD:12 7 Normal [facility] Physician Orderon 06-29-2023 Physician Order [id number]#1.00CD:12 7 Normal [facility] C Urineon 06-21-2023 Bacteria identified Cx Nom (U) Microbiology PROCEDURE: Urine Culture [R1] SOURCE: U Cath BODY SITE: COLLECTED DATE/TIME: 06/19/2023 12:08 EDT RECEIVED DATE/TIME: 06/19/2023 18:55 EDT START DATE/TIME: 06/19/2023 18:55 EDT FREE TEXT SOURCE: FRED YBARRA, Fidel IBARRA MD, Fidel Hinkle FINAL [...] Locations R1: This test was performed at: [facility], [address] [place] [address], [facility] , , [facility] Comment on above: Performed By: #### 2 [id number] #### [facility] [address] [place] [address] Ambulatory Visit Summaryon 0 06-19-2023 Ambulatory Visit Summary ALISIA CORREA :1960 Visit Date:06/19/2023 Ambulatory Visit Instructions Your Diagnosis Recurrent UTI Your Care Team Attending Physician - FRED YBARRA, Fidel Hinkle Primary Care Physician - [...] 11:00 AM EDT Where: [facility] Lab Reportson 06-08-2023 Lab Reports [id number]#1.00CD:12 7 [facility] Lab Reports [id number]#1.00CD:12 7 [facility] Lab Reports [id number]#1.00CD:12 7 [facility] Formson 05-29-2023 Forms [id number]#1.00CD:12 7 [facility] C Urineon 05-28-2023 Bacteria identified Cx Nom (U) Microbiology PROCEDURE: Urine Culture [R1] SOURCE: U Suprapubic BODY SITE: COLLECTED DATE/TIME: 05/25/2023 11:26 EDT RECEIVED DATE/TIME: 05/25/2023 18:47 EDT START DATE/TIME: 05/25/2023 18:47 EDT FREE TEXT SOURCE: FRED YBARRA, Fidel IBARRA MD, Fidel Hinkle FINAL [...] Locations R1: This test was performed at: [facility], [address] [place] [address], [facility] , , Normal [facility] Comment on above: Performed By: #### 2 [id number] #### [facility] [address] [place] [address] CALCULI, URINARYon 3 2,8 Dihydroxyadenine Normal [facility] Comment on above: Performed By: #### C VDTBH #### [facility] [address] [place] [address] Dr. Bruce Nicholas Ammonium Acid Urate Normal [facility] Comment on above: Performed By: #### C VDTBH #### [facility] [address] [place] [address] Dr. Bruce Nicholas Bilirubin Ql (U) Normal [facility] Comment on above: Performed By: #### C VDTBH #### [facility] [address] [place] [address] Dr. Bruce Nicholas Ca Oxalate Dihydrate 20 % [facility] Comment on above: Performed By: #### C VDTBH #### [facility] [address] [place] [address] Dr. Bruce Nicholas CaHPO4 (Brushite) [facility] Comment on above: Performed By: #### C VDTBH #### [facility] [address] [place] [address] Dr. Bruce Nicholas Calcium Bilirubinate Normal [facility] Comment on above: Performed By: #### C VDTBH #### [facility] [address] [address] [address] Bruce Nicholas Calcium Carbonate Normal [facility] Comment on above: Performed By: #### C VDTBH #### [facility] [address] [address] [address] Bruce Nicholas Calcium Oxalate Monohydrate 80 % [facility] Comment on above: Performed By: #### C VDTBH #### [facility] [address] [address] [address] Bruce Nicholas Calcium Palmitate Balmorhea [facility] Comment on above: Performed By: #### C VDTBH #### [facility] [address] [place] [address] Dr. Bruce Nicholas Calcium Phosphate [facility] Comment on above: Performed By: #### C VDTBH #### [facility] [address] [address] [address] Brcue Nicholas Calcium Stearate [facility] Comment on above: Performed By: #### C VDTBH #### [facility] [address] [address] [address] Bruce Nicholas Carbonate Apatite Normal [facility] Comment on above: Performed By: #### C VDTBH #### [facility] [address] [address] [address] Bruce Nicholas Cellular Material Normal [facility] Comment on above: Performed By: #### C VDTBH #### [facility] [address] [address] [address] Bruce Nicholas Cholesterol [facility] Comment on above: Performed By: #### C VDTBH #### [facility] [address] [address] [address] Bruce Birch (U) Brown Normal [facility] Comment on above: Performed By: #### C VDTBH #### [facility] [address] [address] [address] Bruce Nicholas Comment [facility] Comment on above: Performed By: #### C VDTBH #### [facility] [address] [address] [address] Bruce Nicholas Comment Comment Normal [facility] Comment on above: Result Comment: Calc ulus received wet. Wet calculi must be dried before analysis, which delays reporting of results. Leaving calculi wet (such as water, saline, blood, urine) may lead to changes in composition. Performed By: #### C VDTBH #### [facility] [address] [address] [address] Bruce Nicholas Comment: Comment Normal [facility] Comment on above: Result Comment: Phys akilaan questions regarding Calculi Analysis contact [employer] at: [phone]. Performed By: #### C VDTBH #### [facility] [address] [place] [address] Dr. Bruce Nicholas Composition Comment Normal [facility] Comment on above: Result Comment: Perc entage (Represents the % composition) Performed By: #### C VDTBH #### [facility] [address] [place] [address] Dr. Bruce Nicholas Cystine Normal [facility] Comment on above: Performed By: #### C VDTBH #### [facility] [address] [place] [address] Dr. Bruce Nicholas Disclaimer: Comment Normal [facility] Comment on above: Result Comment: This test was developed and its performance characteristics determined by [facility]. It has not been cleared or approved by the Food and Drug Administration. Performed By: #### C VDTBH #### [facility] [address] [place] [address] Dr. Bruce Nicholas Dried Blood Normal [facility] Comment on above: Performed By: #### C VDTBH #### [facility] [address] [place] [address] Dr. Bruce Nicholas Drug or Metabolite Normal [facility] Comment on above: Performed By: #### C VDTBH #### [facility] [address] [place] [address] Dr. Bruce Nicholas Hydroxyapatite Normal [facility] Comment on above: Performed By: #### C VDTBH #### [facility] [address] [address] [address] Bruce Nicholas Mg NH4 PO4 (Struvite) [facility] Comment on above: Performed By: #### C VDTBH #### [facility] [address] [address] [address] Bruce Nicholas MgHPO4 (Newberyite) Normal [facility] Comment on above: Performed By: #### C VDTBH #### [facility] [address] [address] [address] Bruce Nicholas Other component(s) [facility] Comment on above: Performed By: #### C VDTBH #### [facility] [address] [address] [address] Bruce Nicholas PDF . [facility] Comment on above: Performed By: #### C VDTBH #### [facility] [address] [address] [address] Bruce Nicholas Photo Comment [facility] Comment on above: Result Comment: Phot ograph will follow under a separate cover Performed By: #### C VDTBH #### [facility] [address] [place] [address] Dr. Bruce Nicholas Please note: Comment Normal [facility] Comment on above: Result Comment: Calc jayant report will follow via computer, mail or director loan delivery. Performed By: #### C VDTBH #### [facility] [address] [address] [address] Bruce Nicholas Size 6x4 [facility] Comment on above: Result Comment: Mult iple pieces received. Dimensions of the largest piece reported. Performed By: #### C VDTBH #### [facility] [address] [place] [address] Dr. Bruce Nicholas Sodium Acid Urate Normal [facility] Comment on above: Performed By: #### C VDTBH #### [facility] [address] [place] [address] Dr. Bruce Nicholas Source Comment [facility] Comment on above: Result Comment: Urin francine Bladder Performed By: #### C VDTBH #### [facility] [address] [place] [address] Dr. Bruce Nicholas Triamterene [facility] Comment on above: Performed By: #### C VDTBH #### [facility] [address] [place] [address] Dr. Bruce Nicholas Uric Acid [facility] Comment on above: Performed By: #### C VDTBH #### [facility] [address] [place] [address] Dr. Bruce Nicholas Uric Acid Dihydrate [facility] Comment on above: Performed By: #### C VDTBH #### [facility] [address] [place] [address] Dr. Bruce Nicholas Weight 615 mg [facility] Comment on above: Performed By: #### C VDTBH #### [facility] [address] [place] [address] Dr. Bruce Nicholas Xanthine [facility] Comment on above: Performed By: #### C VDTBH #### [facility] [address] [place] [address] Dr. Bruce Nicholas POINT OF CARE GLUCOSEon Glucose [Mass/Vol] 70 mg/dL Critically low 74-106 [facility] Comment on above: Performed By: #### C BC #### [facility] [address] [place] [address] Dr. Bruce Nicholas CBC AUTO DIFFon 01-20-2023 BASO # 0.0 103/ul Normal 0.0-0.1 [facility] Comment on above: Performed By: #### C VDTBH #### [facility] [address] [place] [address] Dr. Bruce Nicholas Basophils/100 WBC (Bld) 0.2 % Normal 0.2-2.0 [facility] Comment on above: Performed By: #### C VDTBH #### [facility] [address] [place] [address] Dr. Bruce Nicholas EO # 0.1 103/ul Normal 0.0-0.7 [facility] Comment on above: Performed By: #### C VDTBH #### [facility] [address] [place] [address] Dr. Bruce Nicholas Eosinophils/100 WBC (Bld) 0.7 % Critically low 0.9-7.0 [facility] Comment on above: Performed By: #### C VDTBH #### [facility] [address] [place] [address] Dr. Bruce Nicholas Erythrocyte distribution width (RBC) [Ratio] 15.2 % Critically high 11.0-15.0 [facility] Comment on above: Performed By: #### C VDTBH #### [facility] [address] [place] [address] Dr. Bruce Nicholas Hematocrit (Bld) [Volume fraction] 43.0 % Normal 42.0-54.0 [facility] Comment on above: Performed By: #### C VDTBH #### [facility] [address] [place] [address] Dr. Bruce Nicholas Hemoglobin (Bld) [Mass/Vol] 13.7 g/dL Critically low 14.0-18.0 [facility] Comment on above: Performed By: #### C VDTBH #### [facility] [address] [place] [address] Dr. Bruce Nicholas IG # 0.04 10e3/ul Critically high 0.00-0.03 [facility] Comment on above: Performed By: #### C VDTBH #### [facility] [address] [place] [address] Dr. Bruce Nicholas IG % 0.5 % Normal 0.0-0.5 [facility] Comment on above: Performed By: #### C VDTBH #### [facility] [address] [place] [address] Dr. Bruce Nicholas LYMPH # 1.6 103/ul Normal 1.2-3.8 [facility] Comment on above: Performed By: #### C VDTBH #### [facility] [address] [place] [address] Dr. Bruce Nicholas Lymphocytes/100 WBC (Bld) 18.4 % Critically low 20.5-60.0 [facility] Comment on above: Performed By: #### C VDTBH #### [facility] [address] [place] [address] Dr. Bruce Nicholas MANUAL DIFF REQ NO Normal [facility] Comment on above: Performed By: #### C VDTBH #### [facility] [address] [place] [address] Dr. Bruce Nicholas MCH (RBC) [Entitic mass] 28.8 pg Normal 25.9-34.0 [facility] Comment on above: Performed By: #### C VDTBH #### [facility] [address] [place] [address] Dr. Bruce Nicholas MCHC (RBC) [Mass/Vol] 31.9 g/dL Normal 29.9-35.2 [facility] Comment on above: Performed By: #### C VDTBH #### [facility] [address] [place] [address] Dr. Bruce Nicholas MCV (RBC) [Entitic vol] 90.3 fL Normal 80.0-94.0 [facility] Comment on above: Performed By: #### C VDTBH #### [facility] [address] [place] [address] Dr. Bruce Nicholas MONO # 0.6 103/ul Normal 0.3-0.8 [facility] Comment on above: Performed By: #### C VDTBH #### [facility] [address] [place] [address] Dr. Bruce Nicholas Monocytes/100 WBC (Bld) 6.5 % Normal 1.7-12.0 [facility] Comment on above: Performed By: #### C VDTBH #### [facility] [address] [place] [address] Dr. Bruce Nicholas NEUT # 6.4 103/ul Normal 1.4-6.5 [facility] Comment on above: Performed By: #### C VDTBH #### [facility] [address] [place] [address] Dr. Bruce Nicholas Neutrophils/100 WBC (Bld) 73.7 % Normal 43.0-75.0 [facility] Comment on above: Performed By: #### C VDTBH #### [facility] [address] [place] [address] Dr. Bruce Nicholas Platelet mean volume (Bld) [Entitic vol] 11.6 fL Normal 9.5-13.5 [facility] Comment on above: Performed By: #### C VDTBH #### [facility] [address] [place] [address] Dr. Bruce Nicholas PLT 229 103/ul Normal 150-450 [facility] Comment on above: Performed By: #### C VDTBH #### [facility] [address] [place] [address] Dr. Bruce Nicholas RBC 4.76 106/ul Normal 4.70-6.10 [facility] Comment on above: Performed By: #### C VDTBH #### [facility] [address] [place] [address] Dr. Bruce Nicholas WBC 8.7 103/ul Normal 4.0-11.0 [facility] Comment on above: Performed By: #### C VDTBH #### [facility] [address] [place] [address] Dr. Bruce Nicholas PROF CHEM 8 (BAS METB)on Anion gap [Moles/Vol] 11.1 mmol/L Normal [facility] Comment on above: Performed By: #### C BC #### [facility] [address] [place] [address] Dr. Bruce Nicholas Calcium [Mass/Vol] 9.5 mg/dL Normal 8.5-10.1 [facility] Comment on above: Performed By: #### C BC #### [facility] [address] [place] [address] Dr. Bruce Nicholas Chloride [Moles/Vol] 105 mmol/L Normal 98-107 [facility] Comment on above: Performed By: #### C BC #### [facility] [address] [address] [address] Bruce Nicholas CO2 [Moles/Vol] 27.5 mmol/L Normal 21.0-32.0 [facility] Comment on above: Performed By: #### C BC #### [facility] [address] [address] [address] Bruce Nicholas Creatinine [Mass/Vol] 0.73 mg/dL Normal 0.70-1.30 [facility] Comment on above: Performed By: #### C BC #### [facility] [address] [address] [address] Bruce Nicholas EGFR-AF [place] >60 Normal >=[address] [facility] Comment on above: Performed By: #### C BC #### [facility] [address] [address] [address] Bruce Nicholas EGFR-NON AF [place] >60 Normal >=60 [facility] Comment on above: Performed By: #### C BC #### [facility] [address] [address] [address] Bruce Nicholas Glucose [Mass/Vol] 97 mg/dL Normal 74-106 [facility] Comment on above: Performed By: #### C BC #### [facility] [address] [address] [address] Bruce Nicholas Potassium [Moles/Vol] 4.1 mmol/L Normal 3.5-5.1 [facility] Comment on above: Performed By: #### C BC #### [facility] [address] [address] [address] Bruce Nicholas Sodium [Moles/Vol] 140 mmol/L Normal 136-145 [facility] Comment on above: Performed By: #### C BC #### [facility] [address] [address] [address] Bruce Nicholas Urea nitrogen [Mass/Vol] 22.0 mg/dL Critically high 7.0-18.0 [facility] Comment on above: Performed By: #### C BC #### [facility] [address] [address] [address] Bruce Nicholas Urea nitrogen/Creatinine [Mass ratio] 30.1 mg/mg Normal [facility] Comment on above: Performed By: #### C #### [facility] [address] [place] [address] Dr. 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 Normal [facility] CULTURE URINEon 12-21-2022 CULTURE URINE Isolate 1 Pseudomonas aeruginosa >100,000 cfu/mL of ORGANISM 1 Pseudomonas aeruginosa ANTIBIOTIC M.I.C RX STATUS Piperacillin/Tazobactam <=4 S F Ceftazidime <=1 S F Imipenem 1 S F Amikacin <=2 S F Gentamicin <=1 S F Tobramycin <=1 S F Ciprofloxacin <=0.25 S F Levofloxacin 0.25 S F Normal [facility] Comment on above: Performed By: #### U RCX #### [facility] [address] [place] [address] Dr. Bruce Nicholas CBC AUTO DIFFon 12-18-2022 BASO # 0.0 103/ul Normal 0.0-0.1 [facility] Comment on above: Performed By: #### P OCGLUC #### [facility] [address] [place] [address] Dr. Bruce Nicholas Basophils/100 WBC (Bld) 0.6 % Normal 0.2-2.0 [facility] Comment on above: Performed By: #### P OCGLUC #### [facility] [address] [address] [address] Bruce Nicholas EO # 0.2 103/ul Normal 0.0-0.7 [facility] Comment on above: Performed By: #### P OCGLUC #### [facility] [address] [place] [address] Dr. Bruce Nicholas Eosinophils/100 WBC (Bld) 3.2 % Normal 0.9-7.0 [facility] Comment on above: Performed By: #### P OCGLUC #### [facility] [address] [address] [address] Bruce Nicholas Erythrocyte distribution width (RBC) [Ratio] 16.6 % Critically high 11.0-15.0 [facility] Comment on above: Performed By: #### P OCGLUC #### [facility] [address] [place] [address] Dr. Bruce Nicholas Hematocrit (Bld) [Volume fraction] 37.9 % Critically low 42.0-54.0 [facility] Comment on above: Performed By: #### P OCGLUC #### [facility] [address] [place] [address] Dr. Bruce Nicholas Hemoglobin (Bld) [Mass/Vol] 12.0 g/dL Critically low 14.0-18.0 [facility] Comment on above: Performed By: #### P OCGLUC #### [facility] [address] [place] [address] Dr. Bruce Nicholas IG # 0.02 10e3/ul Normal 0.00-0.03 [facility] Comment on above: Performed By: #### P OCGLUC #### [facility] [address] [place] [address] Dr. Bruce Nicholas IG % 0.3 % Normal 0.0-0.5 [facility] Comment on above: Performed By: #### P OCGLUC #### [facility] [address] [place] [address] Dr. Bruce Nicholas LYMPH # 1.2 103/ul Normal 1.2-3.8 [facility] Comment on above: Performed By: #### P OCGLUC #### [facility] [address] [place] [address] Dr. Bruce Nicholas Lymphocytes/100 WBC (Bld) 16.7 % Critically low 20.5-60.0 [facility] Comment on above: Performed By: #### P OCGLUC #### [facility] [address] [place] [address] Dr. Bruce Nicholas MANUAL DIFF REQ NO Normal [facility] Comment on above: Performed By: #### P OCGLUC #### [facility] [address] [address] [address] Bruce Nicholas MCH (RBC) [Entitic mass] 28.4 pg Normal 25.9-34.0 [facility] Comment on above: Performed By: #### P OCGLUC #### [facility] [address] [place] [address] Dr. Bruce Nicholas MCHC (RBC) [Mass/Vol] 31.7 g/dL Normal 29.9-35.2 [facility] Comment on above: Performed By: #### P OCGLUC #### [facility] [address] [place] [address] Dr. Bruce Nicholas MCV (RBC) [Entitic vol] 89.6 fL Normal 80.0-94.0 [facility] Comment on above: Performed By: #### P OCGLUC #### [facility] [address] [place] [address] Dr. Bruce Nicholas MONO # 0.6 103/ul Normal 0.3-0.8 [facility] Comment on above: Performed By: #### P OCGLUC #### [facility] [address] [place] [address] Dr. Bruce Nicholas Monocytes/100 WBC (Bld) 7.9 % Normal 1.7-12.0 [facility] Comment on above: Performed By: #### P OCGLUC #### [facility] [address] [place] [address] Dr. Bruce Nicholas NEUT # 5.0 103/ul Normal 1.4-6.5 [facility] Comment on above: Performed By: #### P OCGLUC #### [facility] [address] [place] [address] Dr. Bruce Nicholas Neutrophils/100 WBC (Bld) 71.3 % Normal 43.0-75.0 [facility] Comment on above: Performed By: #### P OCGLUC #### [facility] [address] [place] [address] Dr. Bruce Nicholas Platelet mean volume (Bld) [Entitic vol] 12.4 fL Normal 9.5-13.5 [facility] Comment on above: Performed By: #### P OCGLUC #### [facility] [address] [place], [place] [address] Dr. Bruce Nicholas PLT 156 103/ul Normal 150-450 [facility] Comment on above: Performed By: #### P OCGLUC #### [facility] [address] [place], [place] [address] Dr. Bruce Nicholas RBC 4.23 106/ul Critically low 4.70-6.10 [facility] Comment on above: Performed By: #### P OCGLUC #### [facility] [address] [place], [place] [address] Dr. Bruce Nicholas WBC 6.9 103/ul Normal 4.0-11.0 [facility] Comment on above: Performed By: #### P OCGLUC #### [facility] [address] [place], [place] [address] ABD/PELVIS WO CONon 12-18 CT ABD/PELVIS WO CON EXAMINATION: CT ABD/PELVIS WO CON, 12/18/2022 1:17 PM MST HISTORY: Retention of urine COMPARISON: None. TECHNIQUE: CT scan of the abdomen and pelvis was performed without IV contrast. CT dose reduction technique was used, including Automated Exposure Control. FINDINGS: Pit Operator: No pertinent findings, which are not [...] CHE PANDYA Date: 2022-12-18 17:14 Normal [facility] ER URINE PROFILEon 3 Bilirubin Ql (U) Negative Normal NEGATIVE [facility] Comment on above: Performed By: #### P OCGLUC #### [facility] [address] [address] [address] Bruce Nicholas Clarity (U) CLEAR Normal CLEAR [facility] Comment on above: Performed By: #### P OCGLUC #### [facility] [address] [address] [address] Bruce Nicholas Color (U) BROWN Abnormal YELLOW [facility] Comment on above: Performed By: #### P OCGLUC #### [facility] [address] [address] [address] Bruce Nicholas ERUAHD A micrscopic examina tion will be performed if indicated. Normal [facility] Comment on above: Performed By: #### P OCGLUC #### [facility] [address] [address] [address] Bruce Nicholas Glucose Ql (U) Negative Normal NEGATIVE [facility] Comment on above: Performed By: #### P OCGLUC #### [facility] [address] [address] [address] Bruce Nicholas Hemoglobin Ql (U) MODERATE Abnormal NEGATIVE [facility] Comment on above: Performed By: #### P OCGLUC #### [facility] [address] [address] [address] Bruce Nicholas Ketones Ql (U) Negative Normal NEGATIVE [facility] Comment on above: Performed By: #### P OCGLUC #### [facility] [address] [place] [address] Dr. Bruce Nicholas LEUKOCYTES LARGE Abnormal NEGATIVE [facility] Comment on above: Performed By: #### P OCGLUC #### [facility] [address] [place] [address] Dr. Bruce Nicholas Nitrite Ql (U) Positive Abnormal NEGATIVE [facility] Comment on above: Performed By: #### P OCGLUC #### [facility] [address] [place] [address] Dr. Bruce Nicholas pH (U) 6.0 [pH] Normal 5-9 [facility] Comment on above: Performed By: #### P OCGLUC #### [facility] [address] [place] [address] Dr. Bruce Nicholas Protein (U) [Mass/Vol] 30 mg/dL Abnormal NEGAT AV/ TRACE [facility] Comment on above: Performed By: #### P OCGLUC #### [facility] [address] [place] [address] Dr. Bruce Nicholas SPEC GRAVITY 1.020 Normal 1.005-<=1. 025 [facility] Comment on above: Performed By: #### P OCGLUC #### [facility] [address] [place] [address] Dr. Bruce Nicholas UR MICRO IND INDICATED Normal [facility] Comment on above: Performed By: #### P OCGLUC #### [facility] [address] [place] [address] Dr. Bruce Nicholas Urobilinogen Qn (U) 1.0 {Phillip'U}/dL Normal 0.2 - 1. 0 [facility] Comment on above: Performed By: #### P OCGLUC #### [facility] [address] [address] [address] Bruce Nicholas PROF 14(COMP METB)on 023 Albumin [Mass/Vol] 3.0 g/dL Critically low 3.4-5.0 [facility] Comment on above: Performed By: #### C VDTBH #### [facility] [address] [place] [address] Dr. Bruce Nicholas Albumin/Globulin [Mass ratio] 0.9 {ratio} Normal [facility] Comment on above: Performed By: #### C VDTBH #### [facility] [address] [place] [address] Dr. Bruce Nicholas ALP [Catalytic activity/Vol] 112 U/L Normal 46-116 [facility] Comment on above: Performed By: #### C VDTBH #### [facility] [address] [place] [address] Dr. Bruce Nicholas ALT [Catalytic activity/Vol] 7 U/L Critically low 16-63 [facility] Comment on above: Performed By: #### C VDTBH #### [facility] [address] [place] [address] Dr. Bruce Nicholas Anion gap [Moles/Vol] 5.6 mmol/L Normal [facility] Comment on above: Performed By: #### C VDTBH #### [facility] [address] [place] [address] Dr. Bruce Nicholas AST [Catalytic activity/Vol] 19 U/L Normal 15-37 [facility] Comment on above: Performed By: #### C VDTBH #### [facility] [address] [place] [address] Dr. Bruce Nicholas Bilirubin [Mass/Vol] 0.6 mg/dL Normal 0.2-1.0 [facility] Comment on above: Performed By: #### C VDTBH #### [facility] [address] [place] [address] Dr. Bruce Nicholas Calcium [Mass/Vol] 9.0 mg/dL Normal 8.5-10.1 [facility] Comment on above: Performed By: #### C VDTBH #### [facility] [address] [place] [address] Dr. Bruce Nicholas Chloride [Moles/Vol] 106 mmol/L Normal 98-107 [facility] Comment on above: Performed By: #### C VDTBH #### [facility] [address] [place] [address] Dr. Bruce Nicholas CO2 [Moles/Vol] 29.0 mmol/L Normal 21.0-32.0 [facility] Comment on above: Performed By: #### C VDTBH #### [facility] [address] [place] [address] Dr. Bruce Nicholas Creatinine [Mass/Vol] 0.71 mg/dL Normal 0.70-1.30 [facility] Comment on above: Performed By: #### C VDTBH #### [facility] [address] [place] [address] Dr. Bruce Nicholas EGFR-AF [place] >60 Normal >=60 [facility] Comment on above: Performed By: #### C VDTBH #### [facility] [address] [place] [address] Dr. Bruce Nicholas EGFR-NON AF [place] >60 Normal >=60 [facility] Comment on above: Performed By: #### C VDTBH #### [facility] [address] [place] [address] Dr. Bruce Nicholas Globulin (S) [Mass/Vol] 3.2 g/dL Normal [facility] Comment on above: Performed By: #### C VDTBH #### [facility] [address] [place] [address] Dr. Bruce Nicholas Glucose [Mass/Vol] 93 mg/dL Normal 74-106 [facility] Comment on above: Performed By: #### C VDTBH #### [facility] [address] [place] [address] Dr. Bruce Nicholas Potassium [Moles/Vol] 3.6 mmol/L Normal 3.5-5.1 [facility] Comment on above: Performed By: #### C VDTBH #### [facility] [address] [place] [address] Dr. Bruce Nicholas Protein [Mass/Vol] 6.2 g/dL Critically low 6.4-8.2 [facility] Comment on above: Performed By: #### C VDTBH #### [facility] [address] [place] [address] Dr. Bruce Nicholas Sodium [Moles/Vol] 137 mmol/L Normal 136-145 [facility] Comment on above: Performed By: #### C VDTBH #### [facility] [address] [place] [address] Dr. Bruce Nicholas Urea nitrogen [Mass/Vol] 22.0 mg/dL Critically high 7.0-18.0 [facility] Comment on above: Performed By: #### C VDTBH #### [facility] [address] [place] [address] Dr. Bruce Nicohlas Urea nitrogen/Creatinine [Mass ratio] 31.0 mg/mg Normal [facility] Comment on above: Performed By: #### C VDTBH #### [facility] [address] [place] [address] Dr. Bruce Nicholas URINE MICROSCOPIC ONLYon BACTERIA SMALL Abnormal NONE SEEN [facility] Comment on above: Performed By: #### P OCGLUC #### [facility] [address] [place] [address] Dr. Bruce Nicholas Bacteria identified Cx Nom (U) INDICATED Normal [facility] Comment on above: Performed By: #### P OCGLUC #### [facility] [address] [place] [address] Dr. Bruce Nicholas CAST NONE SEEN Normal NONE SEEN [facility] Comment on above: Performed By: #### P OCGLUC #### [facility] [address] [place] [address] Dr. Bruce Nicohlas Crystals LM Nom (Urine sed) NONE SEEN Normal NONE SEEN [facility] Comment on above: Performed By: #### P OCGLUC #### [facility] [address] [place] [address] Dr. Bruce Nicholas Epithelial cells LM Ql (Urine sed) NONE SEEN Normal NONE SEEN /RARE [facility] Comment on above: Performed By: #### P OCGLUC #### [facility] [address] [address] [address] Bruce Nicholas MUCOUS NONE SEEN Normal NONE SEEN [facility] Comment on above: Performed By: #### P OCGLUC #### [facility] [address] [address] [address] Bruce Nicholas RBC 10-20 Abnormal 0-2 [facility] Comment on above: Performed By: #### P OCGLUC #### [facility] [address] [address] [address] Bruce Nicholas WBC 50-75 Abnormal NONE SEEN [facility] Comment on above: Performed By: #### P OCGLUC #### [facility] [address] [place] [address] Dr. Bruce Nicholas CASE MANAGEMon 12-06-2022 CASE MANAGEM Normal [facility] CNDSon 12-06-2022 CNDS Normal [facility] CASE MANAGEMon 12-05-2022 CASE MANAGEM Normal [facility] CONSULT PROGon 12-05-2022 CONSULT PROG Normal [facility] NUTRITIONon 12-05-2022 NUTRITION Normal [facility] SOCIAL WORKon 12-05-2022 SOCIAL WORK Normal [facility] CASE MANAGEMon 12-04-2022 CASE MANAGEM Normal [facility] CONSULTon 12-04-2022 CONSULT Normal [facility] ALLIED HEALTHon 12-03-2022 ALLIED HEALTH Normal [facility] CASE MANAGEMon 12-03-2022 CASE MANAGEM Normal [facility] CBC panel Auto (Bld)on 12-03 Erythrocyte distribution width (RBC) [Ratio] 16.1 % High 11.5-15.0 [facility] Comment on above: Order Comment: Speci men Type: BLOOD SPECIMENOrdering Facility: [facility] Address: [address] [place], [place] [address] Performed By: #### 5 8410-2 ####[facility] LABCLIA [id number] [address] [facility] Hematocrit (Bld) [Volume fraction] 38.3 % Low 39.0-51.0 [facility] Comment on above: Order Comment: Speci men Type: BLOOD SPECIMENOrdering Facility: [facility] Address: [address] [place] [address] Performed By: #### 5 8410-2 ####[facility] LABCLIA [id number] [address] [place] Hemoglobin (Bld) [Mass/Vol] 12.4 g/dL Low 13.0-17.0 [facility] Comment on above: Order Comment: Speci men Type: BLOOD SPECIMENOrdering Facility: [facility] Address: [address] [place] [address] Performed By: #### 5 8410-2 ####[facility] LABCLIA [id number] [address] OF [facility] MCH (RBC) [Entitic mass] 28.1 pg Normal 26.0-34.0 [facility] Comment on above: Order Comment: Speci men Type: BLOOD SPECIMENOrdering Facility: [facility] Address: [address] [place], [place] [address] Performed By: #### 5 8410-2 ####[facility] LABIA [id number] [address] [place] [facility] MCHC (RBC) [Mass/Vol] 32.4 g/dL Normal 30.5-36.0 [facility] Comment on above: Order Comment: Speci men Type: BLOOD SPECIMENOrdering Facility: [facility] Address: [address] [place], [place] [address] Performed By: #### 5 8410-2 ####[facility] LABCLIA [id number] [address] [place] MCV (RBC) [Entitic vol] 86.7 fL Normal 80.0-100.0 [facility] Comment on above: Order Comment: Speci men Type: BLOOD SPECIMENOrdering Facility: [facility] Address: [address] [place] [address] Performed By: #### 5 8410-2 ####[facility] [id number] [place] [address] [place] Nucleated RBC (Bld) [#/Vol] 10*3/uL Normal <0.01 [facility] Comment on above: Order Comment: Speci men Type: BLOOD SPECIMENOrdering Facility: [facility] Address: [address] [place] [address] Performed By: #### 5 8410-2 ####[facility] [id number] [place] [address] [place] Platelet mean volume (Bld) [Entitic vol] 13.0 fL High 9.0-12.7 [facility] Comment on above: Order Comment: Speci men Type: BLOOD SPECIMENOrdering Facility: [facility] Address: [address] [place] [address] Performed By: #### 5 8410-2 ####[facility] [id number] [address] [place] Platelets (Bld) [#/Vol] 144 10*3/uL Low 150-400 [facility] Comment on above: Order Comment: Speci men Type: BLOOD SPECIMENOrdering Facility: [facility] Address: [address] [place] [address] Result Comment: Resu lts checked and verified.No clot detected. Performed By: #### 5 8410-2 ####[facility] [id number] [place] [address] [place] RBC (Bld) [#/Vol] 4.42 10*6/uL Normal 4.20-6.00 [facility] Comment on above: Order Comment: Speci men Type: BLOOD SPECIMENOrdering Facility: [facility] Address: [address] Performed By: #### 5 8410-2 ####[facility] LABIA [id number] [place] [address] [place] WBC (Bld) [#/Vol] 9.30 10*3/uL Normal 3.70-11.00 [facility] Comment on above: Order Comment: Speci men Type: BLOOD SPECIMENOrdering Facility: [facility] Address: [address] Performed By: #### 5 8410-2 ####[facility] [id number] [place] [address] [place] CONSULT PROGon 12-03-2022 CONSULT PROG Normal [facility] ECG COMPLETEon 12-03-2022 ECG COMPLETE Normal [facility] Gas and Carbon monoxide pane l (BldV)on 12-03-2022 Base excess Calc (BldV) [Moles/Vol] 1 mmol/L Normal 0-2 [facility] Comment on above: Order Comment: Speci men Type: VENOUS BLOOD SPECIMENOrdering Facility: [facility] Address: [address] [place], [place] [address] Performed By: #### 2 4344-4 ####[facility] [id number] [place] [address] [place] Body temperature 97.52 [degF] Normal [facility] Comment on above: Order Comment: Speci men Type: VENOUS BLOOD SPECIMENOrdering Facility: [facility] Address: [address] Performed By: #### 2 4344-4 ####[facility] LABIA [id number] [place] [address] [place] Calcium.ionized (Bld) [Mass/Vol] 1.17 mmol/L Normal 1.08-1.30 [facility] Comment on above: Order Comment: Speci men Type: VENOUS BLOOD SPECIMENOrdering Facility: [facility] Address: [address] [place] [address] Performed By: #### 2 4344-4 ####[facility] LABIA [id number] [place] [address] [place] Calcium.ionized adjusted to pH 7.4 (BldA) [Moles/Vol] 1.19 mmol/L Normal 1.08-1.30 [facility] Comment on above: Order Comment: Speci men Type: VENOUS BLOOD SPECIMENOrdering Facility: [facility] Address: [address] [place] [address] Performed By: #### 2 4344-4 ####[facility] LABIA [id number] [place] [address] [place] Carboxyhemoglobin (BldV) [Mass fraction] 0.6 % Normal 0.0-2.0 [facility] Comment on above: Order Comment: Speci men Type: VENOUS BLOOD SPECIMENOrdering Facility: [facility] Address: [address] [place] [address] Result Comment: Carb oxyhemoglobin Reference Range for Smokers: 2.0-8.0% Performed By: #### 2 4344-4 ####[facility] LABIA [id number] [place] [address] [place] CO2 (BldV) [Partial pressure] 38 mm[Hg] Low 42-55 [facility] Comment on above: Order Comment: Speci men Type: VENOUS BLOOD SPECIMENOrdering Facility: [facility] Address: [address] [place] [address] Performed By: #### 2 4344-4 ####[facility] LABIA [id number] [place] [address] [place] CO2 [Moles/Vol] 26 mmol/L Normal 25-29 [facility] Comment on above: Order Comment: Speci men Type: VENOUS BLOOD SPECIMENOrdering Facility: [facility] Address: [address] [place], [place] [address] Performed By: #### 2 4344-4 ####[facility] LABCLIA [id number] [place] [address] [place] CO2 adjusted to patient's actual temperature (BldV) [Partial pressure] 37 mmHg Low 42-55 [facility] Comment on above: Order Comment: Speci men Type: VENOUS BLOOD SPECIMENOrdering Facility: [facility] Address: [address] Performed By: #### 2 4344-4 ####[facility] LABIA [id number] [place] [address] [place] Glucose [Mass/Vol] 110 mg/dL High 60-105 [facility] Comment on above: Order Comment: Speci men Type: VENOUS BLOOD SPECIMENOrdering Facility: [facility] Address: [address] [place], [place] [address] Performed By: #### 2 4344-4 ####[facility] LABIA [id number] [place] [address] [place] HCO3 (Bld) [Moles/Vol] 25 mmol/L Normal 24-28 [facility] Comment on above: Order Comment: Speci men Type: VENOUS BLOOD SPECIMENOrdering Facility: [facility] Address: [address] Performed By: #### 2 4344-4 ####[facility] LABCLIA [id number] [place] [address] [place] Hematocrit (Bld) [Volume fraction] 36.2 % Low 39.0-51.0 [facility] Comment on above: Order Comment: Speci men Type: VENOUS BLOOD SPECIMENOrdering Facility: [facility] Address: [address] Performed By: #### 2 4344-4 ####[facility] LABCLIA [id number] [place] [address] [place] Hemoglobin (Bld) [Mass/Vol] 11.8 g/dL Low 13.0-17.0 [facility] Comment on above: Order Comment: Speci men Type: VENOUS BLOOD SPECIMENOrdering Facility: [facility] Address: [address] [place] [address] Performed By: #### 2 4344-4 ####[facility] LABCLIA [id number] [place] [address] [place] Lactate [Moles/Vol] 1.2 mmol/L Normal 0.5-2.2 [facility] Comment on above: Order Comment: Speci men Type: VENOUS BLOOD SPECIMENOrdering Facility: [facility] Address: [address] [place] [address] Performed By: #### 2 4344-4 ####[facility] LABCLIA [id number] [place] [address] [place] Methemoglobin (Bld) [Mass fraction] 1.5 % Normal 0.0-1.5 [facility] Comment on above: Order Comment: Speci men Type: VENOUS BLOOD SPECIMENOrdering Facility: [facility] Address: [address] [place], [place] [address] Performed By: #### 2 4344-4 ####[facility] LABCLIA [id number] [place] [address] [place] O2 THERAPY RA=Room Air Normal [facility] Comment on above: Order Comment: Speci men Type: VENOUS BLOOD SPECIMENOrdering Facility: [facility] Address: [address] [place], [place] [address] Performed By: #### 2 4344-4 ####[facility] LABCLIA [id number] [place] [address] [place] Oxygen (BldV) [Partial pressure] 56 mm[Hg] High 35-45 [facility] Comment on above: Order Comment: Speci men Type: VENOUS BLOOD SPECIMENOrdering Facility: [facility] Address: [address] [place] [address] Performed By: #### 2 4344-4 ####[facility] LABCLIA [id number] [place] [address] [place] Oxygen adjusted to patient's actual temperature (BldV) [Partial pressure] 54 mmHg High 35-45 [facility] Comment on above: Order Comment: Speci men Type: VENOUS BLOOD SPECIMENOrdering Facility: [facility] Address: [address] Performed By: #### 2 4344-4 ####[facility] LABCLIA [id number] [place] [address] [place] Oxygen saturation in Venous blood 88 % High 60-85 [facility] Comment on above: Order Comment: Speci men Type: VENOUS BLOOD SPECIMENOrdering Facility: [facility] Address: [address] [address] Performed By: #### 2 4344-4 ####[facility] LABCLIA [id number] [place] [address] [place] Oxyhemoglobin (BldV) [Mass fraction] 86 % High 60-85 [facility] Comment on above: Order Comment: Speci men Type: VENOUS BLOOD SPECIMENOrdering Facility: [facility] Address: [address] Performed By: #### 2 4344-4 ####[facility] LABCLIA [id number] [place] [address] [place] pH (BldV) 7.43 [pH] High 7.32-7.42 [facility] Comment on above: Order Comment: Speci men Type: VENOUS BLOOD SPECIMENOrdering Facility: [facility] Address: [address] [address] Performed By: #### 2 4344-4 ####[facility] LABCLIA [id number] [place] [address] [place] pH adjusted to patient's actual temperature (BldV) 7.44 High 7.32-7.42 [facility] Comment on above: Order Comment: Speci men Type: VENOUS BLOOD SPECIMENOrdering Facility: [facility] Address: [address] [place] [address] Performed By: #### 2 4344-4 ####[facility] LABCLIA [id number] [place] [address] [place] Potassium [Moles/Vol] 3.7 mmol/L Normal 3.5-5.0 [facility] Comment on above: Order Comment: Speci men Type: VENOUS BLOOD SPECIMENOrdering Facility: [facility] Address: [address] [place] [address] Performed By: #### 2 4344-4 ####[facility] LABCLIA [id number] [place] [address] [place] Sodium [Moles/Vol] 136 mmol/L Normal 136-144 [facility] Comment on above: Order Comment: Speci men Type: VENOUS BLOOD SPECIMENOrdering Facility: [facility] Address: [address] [place] [address] Performed By: #### 2 4344-4 ####[facility] LABCLIA [id number] [place] [address] [place] MEDICAL EMERon 12-03-2022 MEDICAL KALEB Normal [facility] Magnesium SerPl-mCncon 12-03 Magnesium [Mass/Vol] 2.0 mg/dL Normal 1.7-2.3 [facility] Comment on above: Order Comment: Speci men Type: BLOOD SPECIMENOrdering Facility: [facility] Address: [address] [place] [address] Performed By: #### 2 4362-6, 99222-8 ####[facility] LABCLIA [id number] [place] [address] [place] NURSING PROGon 12-03-2022 NURSING PROG Normal [facility] Renal function 2000 panelon 12-03-2022 Albumin [Mass/Vol] 3.0 g/dL Low 3.9-4.9 [facility] Comment on above: Order Comment: Speci men Type: BLOOD SPECIMENOrdering Facility: [facility] Address: [address] [place] [address] Performed By: #### 2 4366, ####[facility] LABCLIA [id number] [place] [address] [place] Anion gap [Moles/Vol] 9 mmol/L Normal 9-18 [facility] Comment on above: Order Comment: Speci men Type: BLOOD SPECIMENOrdering Facility: [facility] Address: [address] [place], [place] [address] Performed By: #### 2 43611-24, ####[facility] LABCLIA [id number] [place] [address] [place] Calcium [Mass/Vol] 8.9 mg/dL Normal 8.5-10.2 [facility] Comment on above: Order Comment: Speci men Type: BLOOD SPECIMENOrdering Facility: [facility] Address: [address] [place] [id number] Performed By: #### 2 4366, ####[facility] LABCLIA [id number] [place] [id number] [place] Chloride [Moles/Vol] 104 mmol/L Normal 97-105 [facility] Comment on above: Order Comment: Speci men Type: BLOOD SPECIMENOrdering Facility: [facility] Address: [address] [id number] Performed By: #### 2 4362-6, ####[facility] LABCLIA [id number] [place] [address] [place] CO2 [Moles/Vol] 25 mmol/L Normal 22-30 [facility] Comment on above: Order Comment: Speci men Type: BLOOD SPECIMENOrdering Facility: [facility] Address: [address] [place] [address] Performed By: #### 2 4362-6, ####[facility] LABCLIA [id number] [address] STATES OF [facility] Creatinine [Mass/Vol] 0.62 mg/dL Low 0.73-1.22 [facility] Comment on above: Order Comment: Speci men Type: BLOOD SPECIMENOrdering Facility: [facility] Address: [address] [place] [address] Performed By: #### 2 4362-6, ####[facility] LABIA [id number] [address] ESTIMATED GLOMERULAR FILTRATION RATE 107 mL/min/1.73m??? Normal >=60 [facility] Comment on above: Order Comment: Speci men Type: BLOOD SPECIMENOrdering Facility: [facility] Address: [address] [place] [address] Result Comment: Karina mated Glomerular Filtration Rate [...] actual GFR. Performed By: #### 2 4362-6, ####[facility] LABCLIA [id number] [address] [place] Glucose [Mass/Vol] 87 mg/dL Normal 74-99 [facility] Comment on above: Order Comment: Speci men Type: BLOOD SPECIMENOrdering Facility: [facility] Address: [address] [phone] Result Comment: The [place] [employer] (ADA) provides guidance for cutoff [...] Standards of Medical Care in Diabetes 2016, [place] [employer]. Diabetes Care. 2016.39(Suppl 1). Performed By: #### 2 4362-6, ####[facility] LABCLIA [id number] [place] [address] [place] Phosphate [Mass/Vol] 2.4 mg/dL Low 2.7-4.8 [facility] Comment on above: Order Comment: Speci men Type: BLOOD SPECIMENOrdering Facility: [facility] Address: [address] [id number] Performed By: #### 2 4362-6, ####[facility] LABIA [id number] [place] [address] [place] Potassium [Moles/Vol] 3.8 mmol/L Normal 3.7-5.1 [facility] Comment on above: Order Comment: Speci men Type: BLOOD SPECIMENOrdering Facility: [facility] Address: [address] [place] [address] Performed By: #### 2 4362-6, ####[facility] LABCLIA [id number] [place] [address] [place] Sodium [Moles/Vol] 138 mmol/L Normal 136-144 [facility] Comment on above: Order Comment: Speci men Type: BLOOD SPECIMENOrdering Facility: [facility] Address: [address] Performed By: #### 2 4362-6, 64168-0 ####[facility] LABCLIA [id number] [place] [address] [place] Urea nitrogen [Mass/Vol] 24 mg/dL Normal 9-24 [facility] Comment on above: Order Comment: Speci men Type: BLOOD SPECIMENOrdering Facility: [facility] Address: [address] [place], [place] [address] Performed By: #### 2 4362-6, ####[facility] LABCLIA [id number] [place] [address] [place] THERAPY NTon 12-03-2022 THERAPY NT Normal [facility] Basic metabolic 2000 panelon 12-02-2022 Anion gap [Moles/Vol] 7 mmol/L Low 9-18 [facility] Comment on above: Order Comment: Speci men Type: BLOOD SPECIMENOrdering Facility: [facility] Address: [address] [place], [place] [address] Performed By: #### 1 9123-9, 2777-1, 18151-0 ####[facility] LABIA [id number] [place] [address] [place] Calcium [Mass/Vol] 8.5 mg/dL Normal 8.5-10.2 [facility] Comment on above: Order Comment: Speci men Type: BLOOD SPECIMENOrdering Facility: [facility] Address: [address] [place], [place] [address] Performed By: #### 1 9123-9, 2777-1, 74728-4 ####[facility] LABCLIA [id number] [place] [address] [place] Chloride [Moles/Vol] 106 mmol/L High 97-105 [facility] Comment on above: Order Comment: Speci men Type: BLOOD SPECIMENOrdering Facility: [facility] Address: [address] [place] [address] Performed By: #### 1 9123-9, 2777-, 82383-0 ####[facility] LABCLIA [id number] [place] [address] [place] CO2 [Moles/Vol] 27 mmol/L Normal 22-30 [facility] Comment on above: Order Comment: Speci men Type: BLOOD SPECIMENOrdering Facility: [facility] Address: [address] [place] [address] Performed By: #### 1 9123-9, 2777, 98195-7 ####[facility] LABCLIA [id number] [place] [address] [place] Creatinine [Mass/Vol] 0.69 mg/dL Low 0.73-1.22 [facility] Comment on above: Order Comment: Speci men Type: BLOOD SPECIMENOrdering Facility: [facility] Address: [address] [place] [address] Performed By: #### 1 9123-9, 2777, 35503-2 ####[facility] LABCLIA [id number] [address] [place] ESTIMATED GLOMERULAR FILTRATION RATE 103 mL/min/1.73m??? Normal >=60 [facility] Comment on above: Order Comment: Speci men Type: BLOOD SPECIMENOrdering Facility: [facility] Address: [address] [place] [address] Result Comment: Karina mated Glomerular Filtration Rate [...] GFR. Performed By: #### 1 9123-9, 2777-, 17369-3 ####[facility] LABCLIA [id number] [place] [address] [place] Glucose [Mass/Vol] 78 mg/dL Normal 74-99 [facility] Comment on above: Order Comment: Speci men Type: BLOOD SPECIMENOrdering Facility: [facility] Address: [address] [place], [place] [address] Result Comment: The [place] [employer] (ADA) provides guidance for cutoff [...] Standards of Medical Care in Diabetes 2016, [place] [employer]. Diabetes Care. 2016.39(Suppl 1). Performed By: #### 1 9123-9, 2777-1, 59786-8 ####[facility] LABIA [id number] [place] [address] [place] Potassium [Moles/Vol] 3.6 mmol/L Low 3.7-5.1 [facility] Comment on above: Order Comment: Speci men Type: BLOOD SPECIMENOrdering Facility: [facility] Address: [address] [place] [address] Performed By: #### 1 9123-9, 2777-1, 54716-1 ####[facility] LABIA [id number] [place] [address] [place] Sodium [Moles/Vol] 140 mmol/L Normal 136-144 [facility] Comment on above: Order Comment: Speci men Type: BLOOD SPECIMENOrdering Facility: [facility] Address: [address] [place], [place] [address] Performed By: #### 1 9123-9, 2777-1, 59097-2 ####[facility] LABCLIA [id number] [place] [address] [place] Urea nitrogen [Mass/Vol] 26 mg/dL High 9-24 [facility] Comment on above: Order Comment: Speci men Type: BLOOD SPECIMENOrdering Facility: [facility] Address: [address] [place] [address] Performed By: #### 1 9123-9, 2777-1, 04886-9 ####[facility] LABIA [id number] [place] [address] [place] CASE MANAGEMon 12-02-2022 CASE MANAGEM Normal [facility] CBC panel Auto (Bld)on 12-02 Erythrocyte distribution width (RBC) [Ratio] 16.2 % High 11.5-15.0 [facility] Comment on above: Order Comment: Speci men Type: BLOOD SPECIMENOrdering Facility: [facility] Address: [address] [place] [address] Performed By: #### 5 8410-2 ####[facility] LABIA [id number] [place] [address] [place] Hematocrit (Bld) [Volume fraction] 39.0 % Normal 39.0-51.0 [facility] Comment on above: Order Comment: Speci men Type: BLOOD SPECIMENOrdering Facility: [facility] Address: [address] [place], [place] [address] Performed By: #### 5 8410-2 ####[facility] LABIA [id number] [place] [address] [place] Hemoglobin (Bld) [Mass/Vol] 12.6 g/dL Low 13.0-17.0 [facility] Comment on above: Order Comment: Speci men Type: BLOOD SPECIMENOrdering Facility: [facility] Address: [address] [place] [address] Performed By: #### 5 8410-2 ####[facility] LABIA [id number] [address] [place] MCH (RBC) [Entitic mass] 27.8 pg Normal 26.0-34.0 [facility] Comment on above: Order Comment: Speci men Type: BLOOD SPECIMENOrdering Facility: [facility] Address: [address] [place] [address] Performed By: #### 5 8410-2 ####[facility] [id number] [address] [place] MCHC (RBC) [Mass/Vol] 32.3 g/dL Normal 30.5-36.0 [facility] Comment on above: Order Comment: Speci men Type: BLOOD SPECIMENOrdering Facility: [facility] Address: [address] [place] [address] Performed By: #### 5 8410-2 ####[facility] [id number] [address] [place] MCV (RBC) [Entitic vol] 85.9 fL Normal 80.0-100.0 [facility] Comment on above: Order Comment: Speci men Type: BLOOD SPECIMENOrdering Facility: [facility] Address: [address] [place] [address] Performed By: #### 5 8410-2 ####[facility] [id number] [address] [place] Nucleated RBC (Bld) [#/Vol] 10*3/uL Normal <0.01 [facility] Comment on above: Order Comment: Speci men Type: BLOOD SPECIMENOrdering Facility: [facility] Address: [address] [place] [address] Performed By: #### 5 8410-2 ####[facility] [id number] [address] [place] Platelet mean volume (Bld) [Entitic vol] 12.8 fL High 9.0-12.7 [facility] Comment on above: Order Comment: Speci men Type: BLOOD SPECIMENOrdering Facility: [facility] Address: [address] [place] [address] Performed By: #### 5 8410-2 ####[facility] LABIA [id number] [place] [address] [place] Platelets (Bld) [#/Vol] 129 10*3/uL Low 150-400 [facility] Comment on above: Order Comment: Speci men Type: BLOOD SPECIMENOrdering Facility: [facility] Address: [address] [place] [address] Result Comment: No c lot detected.Results checked and verified. Performed By: #### 5 8410-2 ####[facility] LABIA [id number] [place] [address] [place] RBC (Bld) [#/Vol] 4.54 10*6/uL Normal 4.20-6.00 [facility] Comment on above: Order Comment: Speci men Type: BLOOD SPECIMENOrdering Facility: [facility] Address: [address] [place] [address] Performed By: #### 5 8410-2 ####[facility] LABIA [id number] [place] [address] [place] WBC (Bld) [#/Vol] 9.16 10*3/uL Normal 3.70-11.00 [facility] Comment on above: Order Comment: Speci men Type: BLOOD SPECIMENOrdering Facility: [facility] Address: [address] [place] [address] Performed By: #### 5 8410-2 ####[facility] LABIA [id number] [place] [address] [place] CONSULT PROGon 12-02-2022 CONSULT PROG Normal [facility] ECG COMPLETEon 12-02-2022 ECG COMPLETE Normal [facility] Magnesium SerPl-mCncon 12-02 Magnesium [Mass/Vol] 1.8 mg/dL Normal 1.7-2.3 [facility] Comment on above: Order Comment: Speci men Type: BLOOD SPECIMENOrdering Facility: [facility] Address: [address] [place] [address] Performed By: #### 1 9123-9, 2777-1, 94904-8 ####[facility] LABIA [id number] [place] [address] [place] Phosphate SerPl-mCncon 12-02 Phosphate [Mass/Vol] 2.7 mg/dL Normal 2.7-4.8 [facility] Comment on above: Order Comment: Speci men Type: BLOOD SPECIMENOrdering Facility: [facility] Address: [address] [place], [place] [address] Performed By: #### 1 9123-9, 2777-1, 98066-7 ####[facility] LABIA [id number] [place] [address] [place] THERAPY NTon 12-02-2022 THERAPY NT Normal [facility] Basic metabolic 2000 panelon 12-01-2022 Anion gap [Moles/Vol] 10 mmol/L Normal - [facility] Comment on above: Order Comment: Speci men Type: BLOOD SPECIMENOrdering Facility: [facility] Address: [address] Performed By: #### 2 4321-2 ####[facility] LABIA [id number] [place] [address] [place] Anion gap [Moles/Vol] 7 mmol/L Low 9-18 [facility] Comment on above: Order Comment: Speci men Type: BLOOD SPECIMENOrdering Facility: [facility] Address: [address] [place], [place] [address] Performed By: #### 2 4321-2, 2776-10, ####[facility] LABCLIA [id number] [facility] [place] [address] [place] Calcium [Mass/Vol] 8.8 mg/dL Normal 8.5-10.2 [facility] Comment on above: Order Comment: Speci men Type: BLOOD SPECIMENOrdering Facility: [facility] Address: [address] [place], [place] [address] Performed By: #### 2 432-2 ####[facility] LABCLIA [id number] [place] [address] [place] Calcium [Mass/Vol] 8.9 mg/dL Normal 8.5-10.2 [facility] Comment on above: Order Comment: Speci men Type: BLOOD SPECIMENOrdering Facility: [facility] Address: [address] [place], [place] [address] Performed By: #### 2 4321-2, 2776-10, ####[facility] LABCLIA [id number] [place] [address] [place] Chloride [Moles/Vol] 103 mmol/L Normal 97-105 [facility] Comment on above: Order Comment: Speci men Type: BLOOD SPECIMENOrdering Facility: [facility] Address: [address] [place] [address] Performed By: #### 2 432-2 ####[facility] LABCLIA [id number] [place] [id number] [place] Chloride [Moles/Vol] 104 mmol/L Normal 97-105 [facility] Comment on above: Order Comment: Speci men Type: BLOOD SPECIMENOrdering Facility: [facility] Address: [address] [place] [address] Performed By: #### 2 4321-2, 27704-18, ####[facility] LABCLIA [id number] [address] CO2 [Moles/Vol] 25 mmol/L Normal 22-30 [facility] Comment on above: Order Comment: Speci men Type: BLOOD SPECIMENOrdering Facility: [facility] Address: [address] [place] [address] Performed By: #### 2 4321-2 ####[facility] LABCLIA [id number] [address] Performed By: #### 2 4321-2, 2777-1, 82663-8 ####[facility] LABCLIA [id number] [address] Creatinine [Mass/Vol] 0.93 mg/dL Normal 0.73-1.22 [facility] Comment on above: Order Comment: Speci men Type: BLOOD SPECIMENOrdering Facility: [facility] Address: [address] [place], [place] [address] Performed By: #### 2 4321-2 ####[facility] LABCLIA [id number] [address] Performed By: #### 2 4321-2, 277-1, ####[facility] LABCLIA [id number] [address] ESTIMATED GLOMERULAR FILTRATION RATE 92 mL/min/1.73m??? Normal >=60 [facility] Comment on above: Order Comment: Speci men Type: BLOOD SPECIMENOrdering Facility: [facility] Address: [address] [place] [address] Result Comment: Karina mated Glomerular Filtration Rate [...] actual GFR. Performed By: #### 2 4321-2 ####[facility] LABCLIA [id number] [address] [address] [facility] Performed By: #### 2 4321-2, 7-1, ####[facility] LABCLIA [id number] [address] [address] [place] Glucose [Mass/Vol] 81 mg/dL Normal 74-99 [facility] Comment on above: Order Comment: Speci men Type: BLOOD SPECIMENOrdering Facility: [facility] Address: [address] [place] [address] Result Comment: The [place] [employer] (ADA) provides guidance for cutoff [...] Standards of Medical Care in Diabetes 2016, [place] [employer]. Diabetes Care. 2016.39(Suppl 1). Performed By: #### 2 4321-2 ####[facility] LABCLIA [id number] [address] Performed By: #### 2 4321-2, 7-, ####[facility] LABCLIA [id number] [address] [address] [place] Potassium [Moles/Vol] 4.2 mmol/L Normal 3.7-5.1 [facility] Comment on above: Order Comment: Speci men Type: BLOOD SPECIMENOrdering Facility: [facility] Address: [address] [phone] Performed By: #### 2 4321-2 ####[facility] LABCLIA [id number] [place] [address] [place] Potassium [Moles/Vol] 4.3 mmol/L Normal 3.7-5.1 [facility] Comment on above: Order Comment: Speci men Type: BLOOD SPECIMENOrdering Facility: [facility] Address: [address] [id number] Performed By: #### 2 4321-2, 2776-10, ####[facility] LABCLIA [id number] [place] [address] [place] Sodium [Moles/Vol] 138 mmol/L Normal 136-144 [facility] Comment on above: Order Comment: Speci men Type: BLOOD SPECIMENOrdering Facility: [facility] Address: [address] [place] [address] Performed By: #### 2 4321-2 ####[facility] LABCLIA [id number] [place] [address] [place] Sodium [Moles/Vol] 136 mmol/L Normal 136-144 [facility] Comment on above: Order Comment: Speci men Type: BLOOD SPECIMENOrdering Facility: [facility] Address: [address] [place], [place] [address] Performed By: #### 2 4321-2, 2776-10, ####[facility] LABCLIA [id number] [place] [address] [place] Urea nitrogen [Mass/Vol] 34 mg/dL High 9-24 [facility] Comment on above: Order Comment: Speci men Type: BLOOD SPECIMENOrdering Facility: [facility] Address: [address] [place] [address] Performed By: #### 2 4321-2 ####[facility] LABCLIA [id number] [place] [address] [place] Urea nitrogen [Mass/Vol] 35 mg/dL High 9-24 [facility] Comment on above: Order Comment: Speci men Type: BLOOD SPECIMENOrdering Facility: [facility] Address: [address] [place] [address] Performed By: #### 2 4321-2, 2777-1, 58618-4 ####[facility] LABCLIA [id number] [place] [address] [place] CBC panel Auto (Bld)on 12-01 Erythrocyte distribution width (RBC) [Ratio] 16.6 % High 11.5-15.0 [facility] Comment on above: Order Comment: Speci men Type: BLOOD SPECIMENOrdering Facility: [facility] Address: [address] [place] [address] Performed By: #### 5 8410-2 ####[facility] LABCLIA [id number] [place] [address] [place] Hematocrit (Bld) [Volume fraction] 38.1 % Low 39.0-51.0 [facility] Comment on above: Order Comment: Speci men Type: BLOOD SPECIMENOrdering Facility: [facility] Address: [address] [place] [address] Performed By: #### 5 8410-2 ####[facility] LABCLIA [id number] [place] [address] [place] Hemoglobin (Bld) [Mass/Vol] 12.5 g/dL Low 13.0-17.0 [facility] Comment on above: Order Comment: Speci men Type: BLOOD SPECIMENOrdering Facility: [facility] Address: [address] [place] [address] Performed By: #### 5 8410-2 ####[facility] LABCLIA [id number] [place] [address] [place] MCH (RBC) [Entitic mass] 28.1 pg Normal 26.0-34.0 [facility] Comment on above: Order Comment: Speci men Type: BLOOD SPECIMENOrdering Facility: [facility] Address: [address] [place] [address] Performed By: #### 5 8410-2 ####[facility] LABCLIA [id number] [address] [place] MCHC (RBC) [Mass/Vol] 32.8 g/dL Normal 30.5-36.0 [facility] Comment on above: Order Comment: Speci men Type: BLOOD SPECIMENOrdering Facility: [facility] Address: [address] [place] [address] Performed By: #### 5 8410-2 ####[facility] LABIA [id number] [address] [place] MCV (RBC) [Entitic vol] 85.6 fL Normal 80.0-100.0 [facility] Comment on above: Order Comment: Speci men Type: BLOOD SPECIMENOrdering Facility: [facility] Address: [address] [place], [place] [address] Performed By: #### 5 8410-2 ####[facility] LABIA [id number] [place] [address] [place] Nucleated RBC (Bld) [#/Vol] 10*3/uL Normal <0.01 [facility] Comment on above: Order Comment: Speci men Type: BLOOD SPECIMENOrdering Facility: [facility] Address: [address] [place], [place] [address] Performed By: #### 5 8410-2 ####[facility] LABIA [id number] [address] [place] Platelet mean volume (Bld) [Entitic vol] 12.5 fL Normal 9.0-12.7 [facility] Comment on above: Order Comment: Speci men Type: BLOOD SPECIMENOrdering Facility: [facility] Address: [address] [place] [address] Performed By: #### 5 8410-2 ####[facility] LABIA [id number] [place] [address] [place] Platelets (Bld) [#/Vol] 121 10*3/uL Low 150-400 [facility] Comment on above: Order Comment: Speci men Type: BLOOD SPECIMENOrdering Facility: [facility] Address: [address] [place] [address] Result Comment: Resu lts checked and verified.No clot detected. Performed By: #### 5 8410-2 ####[facility] [id number] [place] [address] [place] RBC (Bld) [#/Vol] 4.45 10*6/uL Normal 4.20-6.00 [facility] Comment on above: Order Comment: Speci men Type: BLOOD SPECIMENOrdering Facility: [facility] Address: [address] [place] [address] Performed By: #### 5 8410-2 ####[facility] [id number] [place] [address] [place] WBC (Bld) [#/Vol] 9.67 10*3/uL Normal 3.70-11.00 [facility] Comment on above: Order Comment: Speci men Type: BLOOD SPECIMENOrdering Facility: [facility] Address: [address] [place] [address] Performed By: #### 5 8410-2 ####[facility] [id number] [place] [address] [place] CONSULTon 12-01-2022 CONSULT Normal [facility] ECG COMPLETEon 12-01-2022 ECG COMPLETE Normal [facility] HISTORY PHYSICALon HISTORY PHYSICAL Normal [facility] Magnesium SerPl-mCncon 12-01 Magnesium [Mass/Vol] 2.0 mg/dL Normal 1.7-2.3 [facility] Comment on above: Order Comment: Speci men Type: BLOOD SPECIMENOrdering Facility: [facility] Address: [address] [place] [address] Performed By: #### 2 4321-2, 2777-1, ####[facility] LABCLIA [id number] [place] [address] [place] NUTRITIONon 12-01-2022 NUTRITION Normal [facility] Phosphate SerPl-mCncon 12-01 Phosphate [Mass/Vol] 2.3 mg/dL Low 2.7-4.8 [facility] Comment on above: Order Comment: Speci men Type: BLOOD SPECIMENOrdering Facility: [facility] Address: [address] [place] [address] Performed By: #### 2 4321-2, 2777-, ####[facility] LABCLIA [id number] [place] [address] [place] SEPSIS LACTATEon 12-01-2022 Lactate [Moles/Vol] 0.9 mmol/L Normal <=2.0 [facility] Comment on above: Order Comment: Speci men Type: BLOOD SPECIMENOrdering Facility: [facility] Address: [address] [place] [address] Performed By: #### S LACT ####[facility] LABCLIA [id number] [place] [address] [place] THERAPY NTon 12-01-2022 THERAPY NT Normal [facility] US KIDNEY/BLADDERon 12-01-19 23 US KIDNEY/BLADDER Normal [facility] US LEG VEIN DVT [facility]A VAS LABo n 12-01-2022 US LEG VEIN DVT [facility] LAB Normal [facility] Bacteria Bld Culton 11-30-19 Bacteria identified Cx Nom (Bld) CULTURE, BLOOD: No growth 5 days Normal [facility] Comment on above: Performed By: #### 6 00-7 ####[facility] LABCLIA [id number] [place] [id number] [place] Basic metabolic 2000 panelon 11-30-2022 Anion gap [Moles/Vol] 9 mmol/L Normal 9-18 [facility] Comment on above: Order Comment: Speci men Type: BLOOD SPECIMENOrdering Facility: [facility] Address: [address] Performed By: #### 2 777-1, 19451-4, ####[facility] LABCLIA [id number] [place] [address] [place] Calcium [Mass/Vol] 8.7 mg/dL Normal 8.5-10.2 [facility] Comment on above: Order Comment: Speci men Type: BLOOD SPECIMENOrdering Facility: [facility] Address: [address] Performed By: #### 2 777-1, 60376-8, ####[facility] LABIA [id number] [place] [address] [place] Chloride [Moles/Vol] 106 mmol/L High 97-105 [facility] Comment on above: Order Comment: Speci men Type: BLOOD SPECIMENOrdering Facility: [facility] Address: [address] [place] [address] Performed By: #### 2 777-1, 21743-0, ####[facility] LABIA [id number] [place] [address] [place] CO2 [Moles/Vol] 22 mmol/L Normal 22-30 [facility] Comment on above: Order Comment: Speci men Type: BLOOD SPECIMENOrdering Facility: [facility] Address: [address] Performed By: #### 2 777-1, , ####[facility] LABCLIA [id number] [place] [address] [place] Creatinine [Mass/Vol] 0.96 mg/dL Normal 0.73-1.22 [facility] Comment on above: Order Comment: Chaz trevizo Type: BLOOD SPECIMENOrdering Facility: [facility] Address: [address] [place] [address] Performed By: #### 2 777-1, , ####[facility] LABCLIA [id number] [place] [address] [place] ESTIMATED GLOMERULAR FILTRATION RATE 88 mL/min/1.73m??? Normal >=60 [facility] Comment on above: Order Comment: Chaz trevizo Type: BLOOD SPECIMENOrdering Facility: [facility] Address: [address] [place] [address] Result Comment: Karina mated Glomerular Filtration Rate [...] actual GFR. Performed By: #### 2 777-1, , ####[facility] LABIA [id number] [place] [address] [place] Glucose [Mass/Vol] 109 mg/dL High 74-99 [facility] Comment on above: Order Comment: Speci men Type: BLOOD SPECIMENOrdering Facility: [facility] Address: [address] [place] [address] Result Comment: The [place] [employer] (ADA) provides guidance for cutoff [...] Standards of Medical Care in Diabetes 2016, [place] [employer]. Diabetes Care. 2016.39(Suppl 1). Performed By: #### 2 777-1, 48751-7, ####[facility] LABCLIA [id number] [place] [address] [place] Potassium [Moles/Vol] 4.3 mmol/L Normal 3.7-5.1 [facility] Comment on above: Order Comment: Chaz trevizo Type: BLOOD SPECIMENOrdering Facility: [facility] Address: [address] [place] [address] Performed By: #### 2 777-1, , ####[facility] LABCLIA [id number] [place] [address] [place] Sodium [Moles/Vol] 137 mmol/L Normal 136-144 [facility] Comment on above: Order Comment: Chaz trevizo Type: BLOOD SPECIMENOrdering Facility: [facility] Address: [address] [place] [address] Performed By: #### 2 777-1, , ####[facility] LABCLIA [id number] [place] [address] [place] Urea nitrogen [Mass/Vol] 36 mg/dL High 9-24 [facility] Comment on above: Order Comment: Princessi men Type: BLOOD SPECIMENOrdering Facility: [facility] Address: [address] Performed By: #### 2 777-1, 27061-6, ####[facility] LABCLIA [id number] [place] [address] [address] CBC panel Auto (Bld)on 11-30 Erythrocyte distribution width (RBC) [Ratio] 17.2 % High 11.5-15.0 [facility] Comment on above: Order Comment: Speci men Type: BLOOD SPECIMENOrdering Facility: [facility] Address: [address] [place] [address] Performed By: #### 5 8410-2 ####[facility] LABIA [id number] [address] Hematocrit (Bld) [Volume fraction] 36.4 % Low 39.0-51.0 [facility] Comment on above: Order Comment: Speci men Type: BLOOD SPECIMENOrdering Facility: [facility] Address: [address] [place] [address] Performed By: #### 5 8410-2 ####[facility] LABIA [id number] [address] Hemoglobin (Bld) [Mass/Vol] 11.7 g/dL Low 13.0-17.0 [facility] Comment on above: Order Comment: Speci men Type: BLOOD SPECIMENOrdering Facility: [facility] Address: [address] [place] [address] Performed By: #### 5 8410-2 ####[facility] LABIA [id number] [address] [place] MCH (RBC) [Entitic mass] 27.9 pg Normal 26.0-34.0 [facility] Comment on above: Order Comment: Speci men Type: BLOOD SPECIMENOrdering Facility: [facility] Address: [address] [place] [address] Performed By: #### 5 8410-2 ####[facility] LABIA [id number] [address] [place] MCHC (RBC) [Mass/Vol] 32.1 g/dL Normal 30.5-36.0 [facility] Comment on above: Order Comment: Speci men Type: BLOOD SPECIMENOrdering Facility: [facility] Address: [address] [place], [place] [address] Performed By: #### 5 8410-2 ####[facility] [id number] [address] [place] MCV (RBC) [Entitic vol] 86.9 fL Normal 80.0-100.0 [facility] Comment on above: Order Comment: Speci men Type: BLOOD SPECIMENOrdering Facility: [facility] Address: [address] [place], [place] [address] Performed By: #### 5 8410-2 ####[facility] [id number] [place] [address] [place] Nucleated RBC (Bld) [#/Vol] 10*3/uL Normal <0.01 [facility] Comment on above: Order Comment: Speci men Type: BLOOD SPECIMENOrdering Facility: [facility] Address: [address] [place], [place] [address] Performed By: #### 5 8410-2 ####[facility] [id number] [place] [address] [place] Platelet mean volume (Bld) [Entitic vol] Normal [facility] Comment on above: Order Comment: Speci men Type: BLOOD SPECIMENOrdering Facility: [facility] Address: [address] [place], [place] [address] Result Comment: Unab le to Report. Performed By: #### 5 8410-2 ####[facility] [id number] [place] [address] [place] Platelets (Bld) [#/Vol] 103 10*3/uL Low 150-400 [facility] Comment on above: Order Comment: Speci men Type: BLOOD SPECIMENOrdering Facility: [facility] Address: [address] [place], [place] [address] Result Comment: No c lot detected.Results checked and verified. Performed By: #### 5 8410-2 ####[facility] LABIA [id number] [place] [address] [place] RBC (Bld) [#/Vol] 4.19 10*6/uL Low 4.20-6.00 [facility] Comment on above: Order Comment: Speci men Type: BLOOD SPECIMENOrdering Facility: [facility] Address: [address] [place] [address] Performed By: #### 5 8410-2 ####[facility] [id number] [place] [address] [place] WBC (Bld) [#/Vol] 9.45 10*3/uL Normal 3.70-11.00 [facility] Comment on above: Order Comment: Speci men Type: BLOOD SPECIMENOrdering Facility: [facility] Address: [address] [place] [address] Performed By: #### 5 8410-2 ####[facility] LABIA [id number] [place] [address] [place] ECG COMPLETEon 11-30-2022 ECG COMPLETE Normal [facility] Magnesium SerPl-mCncon 11-30 Magnesium [Mass/Vol] 2.1 mg/dL Normal 1.7-2.3 [facility] Comment on above: Order Comment: Speci men Type: BLOOD SPECIMENOrdering Facility: [facility] Address: [address] [place] [address] Performed By: #### 2 777-1, 10774-5, 37780-3 ####[facility] LABIA [id number] [place] [address] [place] Phosphate SerPl-mCncon 11-30 Phosphate [Mass/Vol] 2.8 mg/dL Normal 2.7-4.8 [facility] Comment on above: Order Comment: Speci men Type: BLOOD SPECIMENOrdering Facility: [facility] Address: [address] [place] [address] Performed By: #### 2 777-1, 25177-2, 64182-4 ####[facility] LABCLIA [id number] [place] [address] [place] Ammonia Plas-sCncon 11-29-19 23 Ammonia (P) [Moles/Vol] 22 umol/L Normal 16-60 [facility] Comment on above: Order Comment: Speci men Type: BLOOD SPECIMENOrdering Facility: [facility] Address: [address] [place] [address] Result Comment: Resu lt may be falsely increased due to the fact that the sample was not received on ice. Performed By: #### 1 6362-6 ####[facility] LABCLIA [id number] [place] [address] [place] Basic metabolic 2000 panelon 11-29-2022 Anion gap [Moles/Vol] 7 mmol/L Low 9-18 [facility] Comment on above: Order Comment: Speci men Type: BLOOD SPECIMENOrdering Facility: [facility] Address: [address] [place] [address] Performed By: #### 1 9123-9, 2157-6, LIPNF, 10161-1, 3016-3, 2777-1, 3024-7 ####[facility] LABCLIA [id number] [place] [address] [place] Calcium [Mass/Vol] 8.7 mg/dL Normal 8.5-10.2 [facility] Comment on above: Order Comment: Speci men Type: BLOOD SPECIMENOrdering Facility: [facility] Address: [address] [place] [address] Performed By: #### 1 9123-9, 2157-6, LIPNF, 09647-1, 3016-3, 2777-1, 3024-7 ####[facility] LABCLIA [id number] [place] [address] [place] Chloride [Moles/Vol] 111 mmol/L High 97-105 [facility] Comment on above: Order Comment: Speci men Type: BLOOD SPECIMENOrdering Facility: [facility] Address: [address] [place] [address] Performed By: #### 1 9123-9, 7-6, LIPNF, 14157-1, 3016-3, 2777-1, 7 ####[facility] LABCLIA [id number] [place] [address] [place] CO2 [Moles/Vol] 23 mmol/L Normal 22-30 [facility] Comment on above: Order Comment: Speci men Type: BLOOD SPECIMENOrdering Facility: [facility] Address: [address] [place] [address] Performed By: #### 1 9123-9, 2156-6, LIPNF, 64534-2, 3016-3, 2777-1, 7 ####[facility] LABIA [id number] [place] [address] [place] Creatinine [Mass/Vol] 1.08 mg/dL Normal 0.73-1.22 [facility] Comment on above: Order Comment: Speci men Type: BLOOD SPECIMENOrdering Facility: [facility] Address: [address] [place], [place] [address] Performed By: #### 1 9123-9, 2156-6, LIPNF, 66631-1, 3016-3, 2777-1, 7 ####[facility] LABIA [id number] [place] [address] [place] ESTIMATED GLOMERULAR FILTRATION RATE 77 mL/min/1.73m??? Normal >=60 [facility] Comment on above: Order Comment: Speci men Type: BLOOD SPECIMENOrdering Facility: [facility] Address: [address] [place] [address] Result Comment: Karina mated Glomerular Filtration Rate [...] Performed By: #### 1 9123-9, 7-6, LIPNF, 04161-6, 3016-3, 2777-1, 3024-7 ####[facility] LABCLIA [id number] [address] [address] [place] Glucose [Mass/Vol] 94 mg/dL Normal 74-99 [facility] Comment on above: Order Comment: Speci men Type: BLOOD SPECIMENOrdering Facility: [facility] Address: [address] [place], [place] [address] Result Comment: The [place] [employer] (ADA) provides guidance for cutoff [...] Standards of Medical Care in Diabetes 2016, [place] [employer]. Diabetes Care. 2016.39(Suppl 1). Performed By: #### 1 9123-9, 2157-6, LIPNF, 39802-4, 3016-3, 2777-1, 3024-7 ####[facility] LABCLIA [id number] [address] [address] [place] Potassium [Moles/Vol] 4.2 mmol/L Normal 3.7-5.1 [facility] Comment on above: Order Comment: Speci men Type: BLOOD SPECIMENOrdering Facility: [facility] Address: [address] [place] [address] Performed By: #### 1 9123-9, 2156-6, LIPNF, 67144-9, 3016-3, 2777-1, 7 ####[facility] LABCLIA [id number] [place] [address] [place] Sodium [Moles/Vol] 141 mmol/L Normal 136-144 [facility] Comment on above: Order Comment: Speci men Type: BLOOD SPECIMENOrdering Facility: [facility] Address: [address] [place] [address] Performed By: #### 1 9123-9, 6, LIPNF, 18022-9, 3016-3, 2777-1, 7 ####[facility] LABCLIA [id number] [place] [address] [place] Urea nitrogen [Mass/Vol] 38 mg/dL High 9-24 [facility] Comment on above: Order Comment: Speci men Type: BLOOD SPECIMENOrdering Facility: [facility] Address: [address] [place] [address] Performed By: #### 1 9123-9, 6, LIPNF, 16837-7, 3016-3, 2777-1, 7 ####[facility] LABCLIA [id number] [place] [address] [place] CBC panel Auto (Bld)on 11-29 Erythrocyte distribution width (RBC) [Ratio] 17.2 % High 11.5-15.0 [facility] Comment on above: Order Comment: Speci men Type: BLOOD SPECIMENOrdering Facility: [facility] Address: [address] [place] [address] Performed By: #### 5 8410-2 ####[facility] LABCLIA [id number] [address] [place] Hematocrit (Bld) [Volume fraction] 33.5 % Low 39.0-51.0 [facility] Comment on above: Order Comment: Speci men Type: BLOOD SPECIMENOrdering Facility: [facility] Address: [address] [place] [address] Performed By: #### 5 8410-2 ####[facility] LABIA [id number] [place] [address] [place] Hemoglobin (Bld) [Mass/Vol] 11.1 g/dL Low 13.0-17.0 [facility] Comment on above: Order Comment: Speci men Type: BLOOD SPECIMENOrdering Facility: [facility] Address: [address] [place] [address] Performed By: #### 5 8410-2 ####[facility] LABCLIA [id number] [address] [place] MCH (RBC) [Entitic mass] 27.8 pg Normal 26.0-34.0 [facility] Comment on above: Order Comment: Speci men Type: BLOOD SPECIMENOrdering Facility: [facility] Address: [address] [place], [place] [address] Performed By: #### 5 8410-2 ####[facility] LABIA [id number] [address] [place] MCHC (RBC) [Mass/Vol] 33.1 g/dL Normal 30.5-36.0 [facility] Comment on above: Order Comment: Speci men Type: BLOOD SPECIMENOrdering Facility: [facility] Address: [address] [place], [place] [address] Performed By: #### 5 8410-2 ####[facility] LABCLIA [id number] [place] [address] [place] MCV (RBC) [Entitic vol] 83.8 fL Normal 80.0-100.0 [facility] Comment on above: Order Comment: Speci men Type: BLOOD SPECIMENOrdering Facility: [facility] Address: [address] [place] [address] Performed By: #### 5 8410-2 ####[facility] LABIA [id number] [place] [address] [place] Nucleated RBC (Bld) [#/Vol] 10*3/uL Normal <0.01 [facility] Comment on above: Order Comment: Speci men Type: BLOOD SPECIMENOrdering Facility: [facility] Address: [address] [place] [address] Performed By: #### 5 8410-2 ####[facility] [id number] [place] [address] [place] Platelet mean volume (Bld) [Entitic vol] 12.8 fL High 9.0-12.7 [facility] Comment on above: Order Comment: Speci men Type: BLOOD SPECIMENOrdering Facility: [facility] Address: [address] [place] [address] Performed By: #### 5 8410-2 ####[facility] [id number] [place] [address] [place] Platelets (Bld) [#/Vol] 101 10*3/uL Low 150-400 [facility] Comment on above: Order Comment: Speci men Type: BLOOD SPECIMENOrdering Facility: [facility] Address: [address] [place] [address] Result Comment: Resu lts checked and verified.No clot detected. Performed By: #### 5 8410-2 ####[facility] [id number] [place] [address] [place] RBC (Bld) [#/Vol] 4.00 10*6/uL Low 4.20-6.00 [facility] Comment on above: Order Comment: Speci men Type: BLOOD SPECIMENOrdering Facility: [facility] Address: [address] Performed By: #### 5 8410-2 ####[facility] LABCLIA [id number] [place] [address] [place] WBC (Bld) [#/Vol] 11.59 10*3/uL High 3.70-11.00 [facility] Comment on above: Order Comment: Speci men Type: BLOOD SPECIMENOrdering Facility: [facility] Address: [address] [address] Performed By: #### 5 8410-2 ####[facility] LABCLIA [id number] [place] [address] [place] CK SerPl-cCncon 11-29-2022 CK [Catalytic activity/Vol] 21 U/L Low 51-298 [facility] Comment on above: Order Comment: Speci men Type: BLOOD SPECIMENOrdering Facility: [facility] Address: [address] [place] [address] Performed By: #### 1 9123-9, 2157-6, LIPNF, 53746-6, 3016-3, 2777-1, 3024-7 ####[facility] LABCLIA [id number] [place] [address] [place] BRAIN WO IVCONon 11-29-19 CT BRAIN WO IVCON Normal [facility] ECG COMPLETEon 11-29-2022 ECG COMPLETE Normal [facility] Gas and Carbon monoxide pane l (BldV)on 11-29-2022 BASE DEFICIT, VENOUS -2 mmol/L Normal -2-0 [facility] Comment on above: Order Comment: Speci men Type: VENOUS BLOOD SPECIMENOrdering Facility: [facility] Address: [address] [place] [address] Performed By: #### 2 4344-4 ####[facility] LABCLIA [id number] [place] [address] [place] Body temperature 98.6 [degF] Normal [facility] Comment on above: Order Comment: Speci men Type: VENOUS BLOOD SPECIMENOrdering Facility: [facility] Address: [address] [place] [address] Performed By: #### 2 4344-4 ####[facility] LABCLIA [id number] [place] [address] [place] Calcium.ionized (Bld) [Mass/Vol] 1.22 mmol/L Normal 1.08-1.30 [facility] Comment on above: Order Comment: Speci men Type: VENOUS BLOOD SPECIMENOrdering Facility: [facility] Address: [address] [place] [address] Performed By: #### 2 4344-4 ####[facility] LABCLIA [id number] [place] [address] [place] Calcium.ionized adjusted to pH 7.4 (BldA) [Moles/Vol] 1.21 mmol/L Normal 1.08-1.30 [facility] Comment on above: Order Comment: Speci men Type: VENOUS BLOOD SPECIMENOrdering Facility: [facility] Address: [address] [place] [address] Performed By: #### 2 4344-4 ####[facility] LABCLIA [id number] [place] [address] [place] Carboxyhemoglobin (BldV) [Mass fraction] 0.4 % Normal 0.0-2.0 [facility] Comment on above: Order Comment: Speci men Type: VENOUS BLOOD SPECIMENOrdering Facility: [facility] Address: [address] [place] [address] Result Comment: Carb oxyhemoglobin Reference Range for Smokers: 2.0-8.0% Performed By: #### 2 4344-4 ####[facility] LABCLIA [id number] [place] [address] [place] CO2 (BldV) [Partial pressure] 39 mm[Hg] Low 42-55 [facility] Comment on above: Order Comment: Speci men Type: VENOUS BLOOD SPECIMENOrdering Facility: [facility] Address: [address] [address] Performed By: #### 2 4344-4 ####[facility] LABCLIA [id number] [place] [address] [place] CO2 [Moles/Vol] 23 mmol/L Low 25-29 [facility] Comment on above: Order Comment: Speci men Type: VENOUS BLOOD SPECIMENOrdering Facility: [facility] Address: [address] [address] Performed By: #### 2 4344-4 ####[facility] LABCLIA [id number] [place] [address] [place] Glucose [Mass/Vol] 155 mg/dL High 60-105 [facility] Comment on above: Order Comment: Speci men Type: VENOUS BLOOD SPECIMENOrdering Facility: [facility] Address: [address] Performed By: #### 2 4344-4 ####[facility] LABCLIA [id number] [place] [address] [place] HCO3 (Bld) [Moles/Vol] 22 mmol/L Low 24-28 [facility] Comment on above: Order Comment: Speci men Type: VENOUS BLOOD SPECIMENOrdering Facility: [facility] Address: [address] Performed By: #### 2 4344-4 ####[facility] LABCLIA [id number] [place] [address] [place] Hematocrit (Bld) [Volume fraction] 36.7 % Low 39.0-51.0 [facility] Comment on above: Order Comment: Speci men Type: VENOUS BLOOD SPECIMENOrdering Facility: [facility] Address: [address] [place] [address] Performed By: #### 2 4344-4 ####[facility] LABCLIA [id number] [place] [address] [place] Hemoglobin (Bld) [Mass/Vol] 11.9 g/dL Low 13.0-17.0 [facility] Comment on above: Order Comment: Speci men Type: VENOUS BLOOD SPECIMENOrdering Facility: [facility] Address: [address] Performed By: #### 2 4344-4 ####[facility] LABIA [id number] [place] [address] [place] Lactate [Moles/Vol] 1.9 mmol/L Normal 0.5-2.2 [facility] Comment on above: Order Comment: Speci men Type: VENOUS BLOOD SPECIMENOrdering Facility: [facility] Address: [address] Performed By: #### 2 4344-4 ####[facility] LABIA [id number] [place] [address] [place] LITERS 2 Liters/min Normal [facility] Comment on above: Order Comment: Speci men Type: VENOUS BLOOD SPECIMENOrdering Facility: [facility] Address: [address] [place] [address] Performed By: #### 2 4344-4 ####[facility] LABIA [id number] [place] [address] [place] Methemoglobin (Bld) [Mass fraction] 1.6 % High 0.0-1.5 [facility] Comment on above: Order Comment: Speci men Type: VENOUS BLOOD SPECIMENOrdering Facility: [facility] Address: [address] Performed By: #### 2 4344-4 ####[facility] LABIA [id number] [place] O2 THERAPY NC = Nasal Cannula Normal [facility] Comment on above: Order Comment: Speci men Type: VENOUS BLOOD SPECIMENOrdering Facility: [facility] Address: [address] [place] [address] Performed By: #### 2 4344-4 ####[facility] LABCLIA [id number] [place] [address] [place] Oxygen (BldV) [Partial pressure] 104 mm[Hg] High 35-45 [facility] Comment on above: Order Comment: Speci men Type: VENOUS BLOOD SPECIMENOrdering Facility: [facility] Address: [address] [place] [address] Performed By: #### 2 4344-4 ####[facility] LABCLIA [id number] [place] [address] [place] Oxygen saturation in Venous blood 97 % High 60-85 [facility] Comment on above: Order Comment: Speci men Type: VENOUS BLOOD SPECIMENOrdering Facility: [facility] Address: [address] [place], [place] [address] Performed By: #### 2 4344-4 ####[facility] LABCLIA [id number] [place] [address] [place] Oxyhemoglobin (BldV) [Mass fraction] 95 % High 60-85 [facility] Comment on above: Order Comment: Speci men Type: VENOUS BLOOD SPECIMENOrdering Facility: [facility] Address: [address] Performed By: #### 2 4344-4 ####[facility] LABCLIA [id number] [place] [address] [place] pH (BldV) 7.37 [pH] Normal 7.32-7.42 [facility] Comment on above: Order Comment: Speci men Type: VENOUS BLOOD SPECIMENOrdering Facility: [facility] Address: [address] [place], [place] [address] Performed By: #### 2 4344-4 ####[facility] LABCLIA [id number] [place] [address] [place] Potassium [Moles/Vol] 4.1 mmol/L Normal 3.5-5.0 [facility] Comment on above: Order Comment: Speci men Type: VENOUS BLOOD SPECIMENOrdering Facility: [facility] Address: [address] [place], [place] [address] Performed By: #### 2 4344-4 ####[facility] LABIA [id number] [place] [address] [place] Sodium [Moles/Vol] 135 mmol/L Low 136-144 [facility] Comment on above: Order Comment: Speci men Type: VENOUS BLOOD SPECIMENOrdering Facility: [facility] Address: [address] [place], [place] [address] Performed By: #### 2 4344-4 ####[facility] LABIA [id number] [place] [address] [place] LIPID PANEL, NONFASTINGon Cholesterol [Mass/Vol] 79 mg/dL Normal <200 [facility] Comment on above: Order Comment: Speci men Type: BLOOD SPECIMENOrdering Facility: [facility] Address: [address] [place], [place] [address] Result Comment: <200 mg/dL, Desirable 200-239 mg/dL, Borderline high>239 mg/dL, High Performed By: #### 1 9123-9, 2157-6, LIPNF, 02341-4, 3016-3, 2777-1, 3024-7 ####[facility] LABIA [id number] [place] [address] [place] HDL CHOLESTEROL, NF 15 mg/dL Low >39 [facility] Comment on above: Order Comment: Speci men Type: BLOOD SPECIMENOrdering Facility: [facility] Address: [address] [place] [address] Result Comment: 40-5 9 mg/dL, Acceptable>59 mg/dL, High: Negative risk factor for coronary heart disease<40 mg/dL, Low: Positive risk factor for coronary heart disease Performed By: #### 1 9123-9, 2156-6, LIPNF, 12619-7, 3016-3, 2777-1, 3024-7 ####[facility] LABCLIA [id number] [address] LDL CHOLESTEROL, NF 41 mg/dL Normal <100 [facility] Comment on above: Order Comment: Speci men Type: BLOOD SPECIMENOrdering Facility: [facility] Address: [address] [address] Result Comment: <100 mg/dL, Optimal 100-129 mg/dL, Near optimal/above optimal 130-159 mg/dL, Borderline high 160-189 mg/dL, High>189 mg/dL, Very highSecondary prevention optimal LDL Cholesterol levels are recommended to be < 70 mg/dL Performed By: #### 1 9122-9, 6, LIPNF, 73936-8, 6-3, 7-1, 3024-7 ####[facility] LABCLIA [id number] [address] LDL/HDL RATIO, NF 2.73 mg/dL High <2.54 [facility] Comment on above: Order Comment: Speci men Type: BLOOD SPECIMENOrdering Facility: [facility] Address: [address] [address] Result Comment: Refe rence:1. National Cholesterol Education Program ATP III Guideline At-A-Glance Quick Desk Reference: National Heart, Lung, and Blood [place]. National Institutes of Health. 2001: NIH Publication No. 01-3305.2. An International Atherosclerosis Society position paper: global recommendations for the management of dyslipidemia: executive summary, Atherosclerosis. 2014: 232(2):410-413. Performed By: #### 1 23-9, 2156-6, LIPNF, 91749-2, 3016-3, 7-1, 302-7 ####[facility] LABCLIA [id number] [address] [place] NON HDL CHOL, NF 64 mg/dL Normal <130 [facility] Comment on above: Order Comment: Speci men Type: BLOOD SPECIMENOrdering Facility: [facility] Address: [address] [place] [address] Result Comment: <130 mg/dL, Optimal 130-159 mg/dL, Near optimal/above optimal 160-189 mg/dL, Borderline high 190-219 mg/dL, High>219 mg/dL, Very highSecondary prevention optimal non HDL Cholesterol levels are recommended to be <100 mg/dL Performed By: #### 1 9123-9, 6, LIPNF, 51374-8, 6-3, 7-1, 3027 ####[facility] LABCLIA [id number] [address] OF [facility] T CHOL/HDL RATIO NF 5.27 mg/dL High <5.10 [facility] Comment on above: Order Comment: Speci men Type: BLOOD SPECIMENOrdering Facility: [facility] Address: [address] [place] [address] Performed By: #### 1 9123-9, 6, LIPNF, 42278-8, 6-3, 2776-, 7 ####[facility] LABCLIA [id number] [address] [place] TRIGLYCERIDES, NF 117 mg/dL Normal <150 [facility] Comment on above: Order Comment: Speci men Type: BLOOD SPECIMENOrdering Facility: [facility] Address: [address] [place] [address] Result Comment: <150 mg/dL, Normal 150-199 mg/dL, Borderline high 200-499 mg/dL, High>499 mg/dL, Very high Performed By: #### 1 91-9, 2157-6, LIPNF, 32830-2, 3016-3, 2777-1, 3024-7 ####[facility] LABCLIA [id number] [place] [address] [place] VLDL CHOLESTEROL, NF 23 mg/dL Normal <30 [facility] Comment on above: Order Comment: Speci men Type: BLOOD SPECIMENOrdering Facility: [facility] Address: [address] [place] [address] Performed By: #### 1 9122-9, 6, LIPNF, 84080-6, 3016-3, 2776-1, 7 ####[facility] LABCLIA [id number] [place] [address] [place] Magnesium SerPl-mCncon 11-29 Magnesium [Mass/Vol] 2.3 mg/dL Normal 1.7-2.3 [facility] Comment on above: Order Comment: Speci men Type: BLOOD SPECIMENOrdering Facility: [facility] Address: [address] [place] [address] Performed By: #### 1 9122-9, 6, LIPNF, 30084-2, 3015-3, 2776-1, 7 ####[facility] LABCLIA [id number] [place] [address] [place] Phosphate SerPl-mCncon 11-29 Phosphate [Mass/Vol] 2.6 mg/dL Low 2.7-4.8 [facility] Comment on above: Order Comment: Speci men Type: BLOOD SPECIMENOrdering Facility: [facility] Address: [address] [place], [place] [address] Performed By: #### 1 9123-9, 6, LIPNF, 80121-5, 3016-3, 2776-1, 3024-7 ####[facility] LABCLIA [id number] [place] [address] [place] T4 Free SerPl-mCncon 023 Free T4 [Mass/Vol] 0.6 ng/dL Low 0.9-1.7 [facility] Comment on above: Order Comment: Speci men Type: BLOOD SPECIMENOrdering Facility: [facility] Address: [address] [place] [address] Performed By: #### 1 9123-9, 7-6, LIPNF, 32744-9, 3016-3, 2777-1, 3024-7 ####[facility] LABCLIA [id number] [place] [address] [place] TSH SerPl-aCncon 11-29-2022 TSH Qn 0.221 m[IU]/L Low 0.270-4.20 0 [facility] Comment on above: Order Comment: Speci men Type: BLOOD SPECIMENOrdering Facility: [facility] Address: [address] [place] [address] Performed By: #### 1 9123-9, 2156-6, LIPNF, 57301-2, 3016-3, 2777-1, 3024-7 ####[facility] LABCLIA [id number] [place] [address] [place] Basic metabolic 2000 panelon 11-28-2022 Anion gap [Moles/Vol] 10 mmol/L Normal 9-18 [facility] Comment on above: Order Comment: Speci men Type: BLOOD SPECIMENOrdering Facility: [facility] Address: [address] [place] [address] Performed By: #### 2 4321-2, 2777-1, 52117-5 ####[facility] LABCLIA [id number] [place] [address] [place] Calcium [Mass/Vol] 8.6 mg/dL Normal 8.5-10.2 [facility] Comment on above: Order Comment: Speci men Type: BLOOD SPECIMENOrdering Facility: [facility] Address: [address] Performed By: #### 2 4321-2, 2777, ####[facility] LABIA [id number] [place] [address] [place] Chloride [Moles/Vol] 109 mmol/L High 97-105 [facility] Comment on above: Order Comment: Speci men Type: BLOOD SPECIMENOrdering Facility: [facility] Address: [address] [place] [address] Performed By: #### 2 4321-2, 277-, ####[facility] LABIA [id number] [place] [address] [place] CO2 [Moles/Vol] 21 mmol/L Low 22-30 [facility] Comment on above: Order Comment: Speci men Type: BLOOD SPECIMENOrdering Facility: [facility] Address: [address] [place] [address] Performed By: #### 2 4321-2, 27704-18, ####[facility] LABIA [id number] [place] [address] [place] Creatinine [Mass/Vol] 1.31 mg/dL High 0.73-1.22 [facility] Comment on above: Order Comment: Speci men Type: BLOOD SPECIMENOrdering Facility: [facility] Address: [address] [place], [place] [address] Performed By: #### 2 4321-2, 2777, ####[facility] LABIA [id number] [place] [address] [place] ESTIMATED GLOMERULAR FILTRATION RATE 61 mL/min/1.73m??? Normal >=60 [facility] Comment on above: Order Comment: Speci men Type: BLOOD SPECIMENOrdering Facility: [facility] Address: [address] [place], [place] [address] Result Comment: Karina mated Glomerular Filtration Rate [...] actual GFR. Performed By: #### 2 4321-2, 27704-18, ####[facility] LABCLIA [id number] [address] [address] [place] Glucose [Mass/Vol] 113 mg/dL High 74-99 [facility] Comment on above: Order Comment: Specisatu men Type: BLOOD SPECIMENOrdering Facility: [facility] Address: [address] [place] [address] Result Comment: The [place] [employer] (ADA) provides guidance for cutoff [...] Standards of Medical Care in Diabetes 2016, [place] [employer]. Diabetes Care. 2016.39(Suppl 1). Performed By: #### 2 4321-2, 2776-10, ####[facility] LABIA [id number] [address] [address] [place] Potassium [Moles/Vol] 4.9 mmol/L Normal 3.7-5.1 [facility] Comment on above: Order Comment: Speci men Type: BLOOD SPECIMENOrdering Facility: [facility] Address: [address] [place] [address] Performed By: #### 2 4321-2, 27704-18, ####[facility] LABCLIA [id number] [place] [address] [place] Sodium [Moles/Vol] 140 mmol/L Normal 136-144 [facility] Comment on above: Order Comment: Speci men Type: BLOOD SPECIMENOrdering Facility: [facility] Address: [address] [place] [address] Performed By: #### 2 4321-2, 2776-10, ####[facility] LABIA [id number] [place] [address] [place] Urea nitrogen [Mass/Vol] 38 mg/dL High 9-24 [facility] Comment on above: Order Comment: Speci men Type: BLOOD SPECIMENOrdering Facility: [facility] Address: [address] [place] [address] Performed By: #### 2 4321-2, 2776-10, ####[facility] LABIA [id number] [place] [address] [place] CBC panel Auto (Bld)on 11-28 Erythrocyte distribution width (RBC) [Ratio] 17.4 % High 11.5-15.0 [facility] Comment on above: Order Comment: Speci men Type: BLOOD SPECIMENOrdering Facility: [facility] Address: [address] [place], [place] [address] Performed By: #### 5 8410-2 ####[facility] LABIA [id number] [place] [address] [place] Hematocrit (Bld) [Volume fraction] 33.3 % Low 39.0-51.0 [facility] Comment on above: Order Comment: Speci men Type: BLOOD SPECIMENOrdering Facility: [facility] Address: [address] [place] [address] Performed By: #### 5 8410-2 ####[facility] LABCLIA [id number] [address] STATES OF [facility] Hemoglobin (Bld) [Mass/Vol] 10.8 g/dL Low 13.0-17.0 [facility] Comment on above: Order Comment: Speci men Type: BLOOD SPECIMENOrdering Facility: [facility] Address: [address] [place] [address] Performed By: #### 5 8410-2 ####[facility] LABIA [id number] [address] MCH (RBC) [Entitic mass] 28.1 pg Normal 26.0-34.0 [facility] Comment on above: Order Comment: Speci men Type: BLOOD SPECIMENOrdering Facility: [facility] Address: [address] [place] [address] Performed By: #### 5 8410-2 ####[facility] LABIA [id number] [address] MCHC (RBC) [Mass/Vol] 32.4 g/dL Normal 30.5-36.0 [facility] Comment on above: Order Comment: Speci men Type: BLOOD SPECIMENOrdering Facility: [facility] Address: [address] [place], [place] [address] Performed By: #### 5 8410-2 ####[facility] LABIA [id number] [address] [place] MCV (RBC) [Entitic vol] 86.5 fL Normal 80.0-100.0 [facility] Comment on above: Order Comment: Speci men Type: BLOOD SPECIMENOrdering Facility: [facility] Address: [address] [place], [place] [address] Performed By: #### 5 8410-2 ####[facility] LABIA [id number] [address] [place] Nucleated RBC (Bld) [#/Vol] 10*3/uL Normal <0.01 [facility] Comment on above: Order Comment: Speci men Type: BLOOD SPECIMENOrdering Facility: [facility] Address: [address] [place] [address] Performed By: #### 5 8410-2 ####[facility] LABIA [id number] [place] [address] [place] Platelet mean volume (Bld) [Entitic vol] 13.2 fL High 9.0-12.7 [facility] Comment on above: Order Comment: Speci men Type: BLOOD SPECIMENOrdering Facility: [facility] Address: [address] [place] [address] Performed By: #### 5 8410-2 ####[facility] LABIA [id number] [place] [address] [place] Platelets (Bld) [#/Vol] 76 10*3/uL Low 150-400 [facility] Comment on above: Order Comment: Speci men Type: BLOOD SPECIMENOrdering Facility: [facility] Address: [address] [place] [address] Result Comment: Resu lts checked and verified.No clot detected. Performed By: #### 5 8410-2 ####[facility] LABIA [id number] [place] [address] [place] RBC (Bld) [#/Vol] 3.85 10*6/uL Low 4.20-6.00 [facility] Comment on above: Order Comment: Speci men Type: BLOOD SPECIMENOrdering Facility: [facility] Address: [address] [place], [place] [address] Performed By: #### 5 8410-2 ####[facility] LABIA [id number] [place] [address] [place] WBC (Bld) [#/Vol] 10.98 10*3/uL Normal 3.70-11.00 [facility] Comment on above: Order Comment: Speci men Type: BLOOD SPECIMENOrdering Facility: [facility] Address: [address] [place] [address] Performed By: #### 5 8410-2 ####[facility] LABCLIA [id number] [place] [address] [place] CONSULTon 11-28-2022 CONSULT Normal [facility] Magnesium SerPl-mCncon 11-28 Magnesium [Mass/Vol] 2.1 mg/dL Normal 1.7-2.3 [facility] Comment on above: Order Comment: Speci men Type: BLOOD SPECIMENOrdering Facility: [facility] Address: [address] [place] [address] Performed By: #### 2 4321-2, 277-1, ####[facility] LABCLIA [id number] [place] [address] [place] Phosphate SerPl-mCncon 11-28 Phosphate [Mass/Vol] 3.4 mg/dL Normal 2.7-4.8 [facility] Comment on above: Order Comment: Speci men Type: BLOOD SPECIMENOrdering Facility: [facility] Address: [address] [place] [address] Performed By: #### 2 4321-2, 277-1, ####[facility] LABCLIA [id number] [place] [address] [place] THERAPY NTon 11-28-2022 THERAPY NT Normal [facility] Basic metabolic 2000 panelon 11-27-2022 Anion gap [Moles/Vol] 13 mmol/L Normal 9-18 [facility] Comment on above: Order Comment: Speci men Type: BLOOD SPECIMENOrdering Facility: [facility] Address: [address] [place] [address] Performed By: #### 2 4321-2 ####[facility] LABCLIA [id number] [place] [address] [place] Calcium [Mass/Vol] 8.3 mg/dL Low 8.5-10.2 [facility] Comment on above: Order Comment: Speci men Type: BLOOD SPECIMENOrdering Facility: [facility] Address: [address] [place] [address] Performed By: #### 2 4321-2 ####[facility] LABCLIA [id number] [place] [address] [place] Chloride [Moles/Vol] 109 mmol/L High 97-105 [facility] Comment on above: Order Comment: Speci men Type: BLOOD SPECIMENOrdering Facility: [facility] Address: [address] [place] [address] Performed By: #### 2 4321-2 ####[facility] LABCLIA [id number] [place] [address] [place] CO2 [Moles/Vol] 18 mmol/L Low 22-30 [facility] Comment on above: Order Comment: Speci men Type: BLOOD SPECIMENOrdering Facility: [facility] Address: [address] [place] [address] Performed By: #### 2 4321-2 ####[facility] LABCLIA [id number] [place] [address] [place] Creatinine [Mass/Vol] 1.52 mg/dL High 0.73-1.22 [facility] Comment on above: Order Comment: Speci men Type: BLOOD SPECIMENOrdering Facility: [facility] Address: [address] [place] [address] Performed By: #### 2 4321-2 ####[facility] LABCLIA [id number] [place] [address] [place] ESTIMATED GLOMERULAR FILTRATION RATE 51 mL/min/1.73m??? Low >=60 [facility] Comment on above: Order Comment: Speci men Type: BLOOD SPECIMENOrdering Facility: [facility] Address: [address] [id number] Result Comment: Karina mated Glomerular Filtration Rate [...] actual GFR. Performed By: #### 2 4321-2 ####[facility] LABCLIA [id number] [place] [address] [place] Glucose [Mass/Vol] 154 mg/dL High 74-99 [facility] Comment on above: Order Comment: Speci men Type: BLOOD SPECIMENOrdering Facility: [facility] Address: [address] [address] Result Comment: The [place] [employer] (ADA) provides guidance for cutoff [...] Standards of Medical Care in Diabetes 2016, [place] [employer]. Diabetes Care. 2016.39(Suppl 1). Performed By: #### 2 4321-2 ####[facility] LABCLIA [id number] [place] [address] [place] Potassium [Moles/Vol] 4.6 mmol/L Normal 3.7-5.1 [facility] Comment on above: Order Comment: Speci men Type: BLOOD SPECIMENOrdering Facility: [facility] Address: [address] [id number] Performed By: #### 2 4321-2 ####[facility] LABCLIA [id number] [place] [address] [place] Sodium [Moles/Vol] 140 mmol/L Normal 136-144 [facility] Comment on above: Order Comment: Speci men Type: BLOOD SPECIMENOrdering Facility: [facility] Address: [address] [place] [address] Performed By: #### 2 4321-2 ####[facility] LABCLIA [id number] [place] [address] [place] Urea nitrogen [Mass/Vol] 43 mg/dL High 9-24 [facility] Comment on above: Order Comment: Speci men Type: BLOOD SPECIMENOrdering Facility: [facility] Address: [address] [place] [address] Performed By: #### 2 4321-2 ####[facility] LABCLIA [id number] [place] [address] [place] Anion gap [Moles/Vol] 14 mmol/L Normal 9-18 [facility] Comment on above: Order Comment: Speci men Type: BLOOD SPECIMENOrdering Facility: [facility] Address: [address] [place], [place] [address] Performed By: #### 1 9123-9, 79846-2, 2777-1 ####[facility] LABCLIA [id number] [place] [address] [place] Calcium [Mass/Vol] 8.7 mg/dL Normal 8.5-10.2 [facility] Comment on above: Order Comment: Speci men Type: BLOOD SPECIMENOrdering Facility: [facility] Address: [address] [place], [place] [address] Performed By: #### 1 9123-9, 60286-4, 2777-1 ####[facility] LABCLIA [id number] [place] [address] [place] Chloride [Moles/Vol] 109 mmol/L High 97-105 [facility] Comment on above: Order Comment: Speci men Type: BLOOD SPECIMENOrdering Facility: [facility] Address: [address] [place] [address] Performed By: #### 1 9123-9, 70133-8, 2776-10 ####[facility] LABCLIA [id number] [place] [address] [place] CO2 [Moles/Vol] 17 mmol/L Low 22-30 [facility] Comment on above: Order Comment: Speci men Type: BLOOD SPECIMENOrdering Facility: [facility] Address: [address] [place] [address] Performed By: #### 1 9123-9, 76453-6, 2776-10 ####[facility] LABCLIA [id number] [place] [address] [place] Creatinine [Mass/Vol] 1.75 mg/dL High 0.73-1.22 [facility] Comment on above: Order Comment: Speci men Type: BLOOD SPECIMENOrdering Facility: [facility] Address: [address] [place] [address] Performed By: #### 1 9123-9, 77763-3, 2776-10 ####[facility] LABCLIA [id number] [place] [address] [place] ESTIMATED GLOMERULAR FILTRATION RATE 43 mL/min/1.73m??? Low >=60 [facility] Comment on above: Order Comment: Speci men Type: BLOOD SPECIMENOrdering Facility: [facility] Address: [address] [place] [address] Result Comment: Karina mated Glomerular Filtration Rate [...] actual GFR. Performed By: #### 1 9123-9, 32238-1, 2776-10 ####[facility] LABCLIA [id number] [place] [address] [place] Glucose [Mass/Vol] 112 mg/dL High 74-99 [facility] Comment on above: Order Comment: Speci men Type: BLOOD SPECIMENOrdering Facility: [facility] Address: [address] [phone] Result Comment: The [place] [employer] (ADA) provides guidance for cutoff [...] Standards of Medical Care in Diabetes 2016, [place] [employer]. Diabetes Care. 2016.39(Suppl 1). Performed By: #### 1 9123-9, , 2776-10 ####[facility] LABIA [id number] [place] [address] [place] Potassium [Moles/Vol] 5.4 mmol/L High 3.7-5.1 [facility] Comment on above: Order Comment: Speci men Type: BLOOD SPECIMENOrdering Facility: [facility] Address: [address] [place] [address] Performed By: #### 1 9123-9, 47577-5, 2776-10 ####[facility] LABIA [id number] [place] [address] [place] Sodium [Moles/Vol] 140 mmol/L Normal 136-144 [facility] Comment on above: Order Comment: Speci men Type: BLOOD SPECIMENOrdering Facility: [facility] Address: [address] Performed By: #### 1 9123-9, 12731-1, 2777-1 ####[facility] LABCLIA [id number] [place] [address] [place] Urea nitrogen [Mass/Vol] 40 mg/dL High 9-24 [facility] Comment on above: Order Comment: Speci men Type: BLOOD SPECIMENOrdering Facility: [facility] Address: [address] [place] [address] Performed By: #### 1 9123-9, 84312-7, 2777-1 ####[facility] LABCLIA [id number] [place] [address] [place] CASE MANAGEMon 11-27-2022 CASE MANAGEM Normal [facility] CBC panel Auto (Bld)on 11-27 Erythrocyte distribution width (RBC) [Ratio] 17.2 % High 11.5-15.0 [facility] Comment on above: Order Comment: Speci men Type: BLOOD SPECIMENOrdering Facility: [facility] Address: [address] [place], [place] [address] Performed By: #### 5 8410-2 ####[facility] LABCLIA [id number] [place] [address] [place] Hematocrit (Bld) [Volume fraction] 36.2 % Low 39.0-51.0 [facility] Comment on above: Order Comment: Speci men Type: BLOOD SPECIMENOrdering Facility: [facility] Address: [address] [place], [place] [address] Performed By: #### 5 8410-2 ####[facility] LABCLIA [id number] [place] [address] [place] Hemoglobin (Bld) [Mass/Vol] 12.0 g/dL Low 13.0-17.0 [facility] Comment on above: Order Comment: Speci men Type: BLOOD SPECIMENOrdering Facility: [facility] Address: [address] Performed By: #### 5 8410-2 ####[facility] [id number] [address] MCH (RBC) [Entitic mass] 28.4 pg Normal 26.0-34.0 [facility] Comment on above: Order Comment: Speci men Type: BLOOD SPECIMENOrdering Facility: [facility] Address: [address] Performed By: #### 5 8410-2 ####[facility] [id number] [address] [place] [facility] MCHC (RBC) [Mass/Vol] 33.1 g/dL Normal 30.5-36.0 [facility] Comment on above: Order Comment: Speci men Type: BLOOD SPECIMENOrdering Facility: [facility] Address: [address] [place], [place] [address] Performed By: #### 5 8410-2 ####[facility] [id number] [address] [place] [facility] MCV (RBC) [Entitic vol] 85.8 fL Normal 80.0-100.0 [facility] Comment on above: Order Comment: Speci men Type: BLOOD SPECIMENOrdering Facility: [facility] Address: [address] [place] [address] Performed By: #### 5 8410-2 ####[facility] [id number] [address] [place] [facility] Nucleated RBC (Bld) [#/Vol] 10*3/uL Normal <0.01 [facility] Comment on above: Order Comment: Speci men Type: BLOOD SPECIMENOrdering Facility: [facility] Address: [address] Performed By: #### 5 8410-2 ####[facility] LABIA [id number] [place] [address] [place] Platelet mean volume (Bld) [Entitic vol] 13.7 fL High 9.0-12.7 [facility] Comment on above: Order Comment: Speci men Type: BLOOD SPECIMENOrdering Facility: [facility] Address: [address] [place] [address] Performed By: #### 5 8410-2 ####[facility] LABIA [id number] [place] [address] [place] Platelets (Bld) [#/Vol] 92 10*3/uL Low 150-400 [facility] Comment on above: Order Comment: Speci men Type: BLOOD SPECIMENOrdering Facility: [facility] Address: [address] [place] [address] Result Comment: Resu lts checked and verified.No clot detected. Performed By: #### 5 8410-2 ####[facility] LABIA [id number] [place] [address] [place] RBC (Bld) [#/Vol] 4.22 10*6/uL Normal 4.20-6.00 [facility] Comment on above: Order Comment: Speci men Type: BLOOD SPECIMENOrdering Facility: [facility] Address: [address] [place], [place] [address] Performed By: #### 5 8410-2 ####[facility] LABIA [id number] [place] [address] [place] WBC (Bld) [#/Vol] 14.13 10*3/uL High 3.70-11.00 [facility] Comment on above: Order Comment: Speci men Type: BLOOD SPECIMENOrdering Facility: [facility] Address: [address] [place] [address] Performed By: #### 5 8410-2 ####[facility] LABIA [id number] [address] [place] CONSULT PROGon 11-27-2022 CONSULT PROG Normal [facility] Gas and Carbon monoxide pane l (BldV)on 11-27-2022 BASE DEFICIT, VENOUS -5 mmol/L Low -2-0 [facility] Comment on above: Order Comment: Speci men Type: VENOUS BLOOD SPECIMENOrdering Facility: [facility] Address: [address] [place] [address] Performed By: #### 2 4344-4 ####[facility] LABIA [id number] [address] Body temperature 98.6 [degF] Normal [facility] Comment on above: Order Comment: Speci men Type: VENOUS BLOOD SPECIMENOrdering Facility: [facility] Address: [address] [place] [address] Performed By: #### 2 4344-4 ####[facility] LABIA [id number] [address] [place] Calcium.ionized (Bld) [Mass/Vol] 1.20 mmol/L Normal 1.08-1.30 [facility] Comment on above: Order Comment: Speci men Type: VENOUS BLOOD SPECIMENOrdering Facility: [facility] Address: [address] [place], [place] [address] Performed By: #### 2 4344-4 ####[facility] LABIA [id number] [address] [place] Calcium.ionized adjusted to pH 7.4 (BldA) [Moles/Vol] 1.17 mmol/L Normal 1.08-1.30 [facility] Comment on above: Order Comment: Speci men Type: VENOUS BLOOD SPECIMENOrdering Facility: [facility] Address: [address] [place], [place] [address] Performed By: #### 2 4344-4 ####[facility] LABIA [id number] [place] [address] [place] Carboxyhemoglobin (BldV) [Mass fraction] 0.1 % Normal 0.0-2.0 [facility] Comment on above: Order Comment: Speci men Type: VENOUS BLOOD SPECIMENOrdering Facility: [facility] Address: [address] [address] Result Comment: Carb oxyhemoglobin Reference Range for Smokers: 2.0-8.0% Performed By: #### 2 4344-4 ####[facility] LABIA [id number] [place] [address] [place] CO2 (BldV) [Partial pressure] 35 mm[Hg] Low 42-55 [facility] Comment on above: Order Comment: Speci men Type: VENOUS BLOOD SPECIMENOrdering Facility: [facility] Address: [address] [address] Performed By: #### 2 4344-4 ####[facility] LABIA [id number] [place] [address] [place] CO2 [Moles/Vol] 20 mmol/L Low 25-29 [facility] Comment on above: Order Comment: Speci men Type: VENOUS BLOOD SPECIMENOrdering Facility: [facility] Address: [address] [place] [address] Performed By: #### 2 4344-4 ####[facility] LABIA [id number] [place] [address] [place] Glucose [Mass/Vol] 159 mg/dL High 60-105 [facility] Comment on above: Order Comment: Speci men Type: VENOUS BLOOD SPECIMENOrdering Facility: [facility] Address: [address] [address] Performed By: #### 2 4344-4 ####[facility] LABCLIA [id number] [place] [address] [place] HCO3 (Bld) [Moles/Vol] 19 mmol/L Low 24-28 [facility] Comment on above: Order Comment: Speci men Type: VENOUS BLOOD SPECIMENOrdering Facility: [facility] Address: [address] Performed By: #### 2 4344-4 ####[facility] LABCLIA [id number] [place] [address] [place] Hematocrit (Bld) [Volume fraction] 36.7 % Low 39.0-51.0 [facility] Comment on above: Order Comment: Speci men Type: VENOUS BLOOD SPECIMENOrdering Facility: [facility] Address: [address] Performed By: #### 2 4344-4 ####[facility] LABCLIA [id number] [place] [address] [place] Hemoglobin (Bld) [Mass/Vol] 11.9 g/dL Low 13.0-17.0 [facility] Comment on above: Order Comment: Speci men Type: VENOUS BLOOD SPECIMENOrdering Facility: [facility] Address: [address] Performed By: #### 2 4344-4 ####[facility] LABIA [id number] [place] [address] [place] Lactate [Moles/Vol] 2.0 mmol/L Normal 0.5-2.2 [facility] Comment on above: Order Comment: Speci men Type: VENOUS BLOOD SPECIMENOrdering Facility: [facility] Address: [address] Performed By: #### 2 4344-4 ####[facility] LABCLIA [id number] [place] [address] [place] LITERS 5 Liters/min Normal [facility] Comment on above: Order Comment: Speci men Type: VENOUS BLOOD SPECIMENOrdering Facility: [facility] Address: [address] Performed By: #### 2 4344-4 ####[facility] LABCLIA [id number] [place] [address] [place] Methemoglobin (Bld) [Mass fraction] 1.7 % High 0.0-1.5 [facility] Comment on above: Order Comment: Speci men Type: VENOUS BLOOD SPECIMENOrdering Facility: [facility] Address: [address] Performed By: #### 2 4344-4 ####[facility] LABCLIA [id number] [address] [place] O2 THERAPY NC = Nasal Cannula Normal [facility] Comment on above: Order Comment: Speci men Type: VENOUS BLOOD SPECIMENOrdering Facility: [facility] Address: [address] Performed By: #### 2 4344-4 ####[facility] LABCLIA [id number] [place] [address] [place] Oxygen (BldV) [Partial pressure] 71 mm[Hg] High 35-45 [facility] Comment on above: Order Comment: Speci men Type: VENOUS BLOOD SPECIMENOrdering Facility: [facility] Address: [address] Performed By: #### 2 4344-4 ####[facility] LABCLIA [id number] [place] [address] [place] Oxygen saturation in Venous blood 94 % High 60-85 [facility] Comment on above: Order Comment: Speci men Type: VENOUS BLOOD SPECIMENOrdering Facility: [facility] Address: [address] [id number] Performed By: #### 2 4344-4 ####[facility] LABCLIA [id number] [place] [address] [place] Oxyhemoglobin (BldV) [Mass fraction] 92 % High 60-85 [facility] Comment on above: Order Comment: Speci men Type: VENOUS BLOOD SPECIMENOrdering Facility: [facility] Address: [address] Performed By: #### 2 4344-4 ####[facility] LABIA [id number] [place] [address] [place] pH (BldV) 7.36 [pH] Normal 7.32-7.42 [facility] Comment on above: Order Comment: Speci men Type: VENOUS BLOOD SPECIMENOrdering Facility: [facility] Address: [address] Performed By: #### 2 4344-4 ####[facility] LABIA [id number] [place] [address] [place] Potassium [Moles/Vol] 4.3 mmol/L Normal 3.5-5.0 [facility] Comment on above: Order Comment: Speci men Type: VENOUS BLOOD SPECIMENOrdering Facility: [facility] Address: [address] Performed By: #### 2 4344-4 ####[facility] LABIA [id number] [place] [address] [place] Sodium [Moles/Vol] 137 mmol/L Normal 136-144 [facility] Comment on above: Order Comment: Speci men Type: VENOUS BLOOD SPECIMENOrdering Facility: [facility] Address: [address] [place] [address] Performed By: #### 2 4344-4 ####[facility] LABIA [id number] [place] [address] [place] BASE DEFICIT, VENOUS -5 mmol/L Low -2-0 [facility] Comment on above: Order Comment: Speci men Type: VENOUS BLOOD SPECIMENOrdering Facility: [facility] Address: [address] Performed By: #### 2 4344-4 ####[facility] LABCLIA [id number] [place] [address] [place] Body temperature 98.6 [degF] Normal [facility] Comment on above: Order Comment: Speci men Type: VENOUS BLOOD SPECIMENOrdering Facility: [facility] Address: [address] [address] Performed By: #### 2 4344-4 ####[facility] LABIA [id number] [place] [address] [place] Calcium.ionized (Bld) [Mass/Vol] 1.21 mmol/L Normal 1.08-1.30 [facility] Comment on above: Order Comment: Speci men Type: VENOUS BLOOD SPECIMENOrdering Facility: [facility] Address: [address] [address] Performed By: #### 2 4344-4 ####[facility] LABIA [id number] [address] [place] Calcium.ionized adjusted to pH 7.4 (BldA) [Moles/Vol] 1.18 mmol/L Normal 1.08-1.30 [facility] Comment on above: Order Comment: Speci men Type: VENOUS BLOOD SPECIMENOrdering Facility: [facility] Address: [address] Performed By: #### 2 4344-4 ####[facility] LABIA [id number] [place] [address] [place] Carboxyhemoglobin (BldV) [Mass fraction] 0.8 % Normal 0.0-2.0 [facility] Comment on above: Order Comment: Speci men Type: VENOUS BLOOD SPECIMENOrdering Facility: [facility] Address: [address] Result Comment: Carb oxyhemoglobin Reference Range for Smokers: 2.0-8.0% Performed By: #### 2 4344-4 ####[facility] LABCLIA [id number] [place] [address] [place] CO2 (BldV) [Partial pressure] 36 mm[Hg] Low 42-55 [facility] Comment on above: Order Comment: Speci men Type: VENOUS BLOOD SPECIMENOrdering Facility: [facility] Address: [address] [address] Performed By: #### 2 4344-4 ####[facility] LABCLIA [id number] [place] [address] [place] CO2 [Moles/Vol] 21 mmol/L Low 25-29 [facility] Comment on above: Order Comment: Speci men Type: VENOUS BLOOD SPECIMENOrdering Facility: [facility] Address: [address] [place] [address] Performed By: #### 2 4344-4 ####[facility] LABCLIA [id number] [place] [address] [place] FIO2 35 % Normal [facility] Comment on above: Order Comment: Speci men Type: VENOUS BLOOD SPECIMENOrdering Facility: [facility] Address: [address] [place] [address] Performed By: #### 2 4344-4 ####[facility] LABCLIA [id number] [place] [address] [place] Glucose [Mass/Vol] 129 mg/dL High 60-105 [facility] Comment on above: Order Comment: Speci men Type: VENOUS BLOOD SPECIMENOrdering Facility: [facility] Address: [address] [address] Performed By: #### 2 4344-4 ####[facility] LABCLIA [id number] [place] [address] [place] HCO3 (Bld) [Moles/Vol] 20 mmol/L Low 24-28 [facility] Comment on above: Order Comment: Speci men Type: VENOUS BLOOD SPECIMENOrdering Facility: [facility] Address: [address] [address] Performed By: #### 2 4344-4 ####[facility] LABIA [id number] [place] [address] [place] Hematocrit (Bld) [Volume fraction] 37.1 % Low 39.0-51.0 [facility] Comment on above: Order Comment: Speci men Type: VENOUS BLOOD SPECIMENOrdering Facility: [facility] Address: [address] [address] Performed By: #### 2 4344-4 ####[facility] LABIA [id number] [place] [address] [place] Hemoglobin (Bld) [Mass/Vol] 12.0 g/dL Low 13.0-17.0 [facility] Comment on above: Order Comment: Speci men Type: VENOUS BLOOD SPECIMENOrdering Facility: [facility] Address: [address] [address] Performed By: #### 2 4344-4 ####[facility] LABIA [id number] [place] [address] [place] Lactate [Moles/Vol] 1.8 mmol/L Normal 0.5-2.2 [facility] Comment on above: Order Comment: Speci men Type: VENOUS BLOOD SPECIMENOrdering Facility: [facility] Address: [address] [address] Performed By: #### 2 4344-4 ####[facility] LABIA [id number] [place] [address] [place] Methemoglobin (Bld) [Mass fraction] 1.5 % Normal 0.0-1.5 [facility] Comment on above: Order Comment: Speci men Type: VENOUS BLOOD SPECIMENOrdering Facility: [facility] Address: [address] [address] Performed By: #### 2 4344-4 ####[facility] LABCLIA [id number] [place] [address] [place] O2 THERAPY Hi-Flow Nasal Cannula-Heated Normal [facility] [facility] Comment on above: Order Comment: Speci men Type: VENOUS BLOOD SPECIMENOrdering Facility: [facility] Address: [address] [place], [place] [address] Performed By: #### 2 4344-4 ####[facility] LABCLIA [id number] [place] [address] [place] Oxygen (BldV) [Partial pressure] 62 mm[Hg] High 35-45 [facility] Comment on above: Order Comment: Speci men Type: VENOUS BLOOD SPECIMENOrdering Facility: [facility] Address: [address] [place] [address] Performed By: #### 2 4344-4 ####[facility] LABCLIA [id number] [place] [address] [place] Oxygen saturation in Venous blood 90 % High 60-85 [facility] Comment on above: Order Comment: Speci men Type: VENOUS BLOOD SPECIMENOrdering Facility: [facility] Address: [address] [place] [address] Performed By: #### 2 4344-4 ####[facility] LABCLIA [id number] [place] [address] [place] Oxyhemoglobin (BldV) [Mass fraction] 88 % High 60-85 [facility] Comment on above: Order Comment: Speci men Type: VENOUS BLOOD SPECIMENOrdering Facility: [facility] Address: [address] [place], [place] [address] Performed By: #### 2 4344-4 ####[facility] LABCLIA [id number] [place] [id number] [place] pH (BldV) 7.35 [pH] Normal 7.32-7.42 [facility] Comment on above: Order Comment: Speci men Type: VENOUS BLOOD SPECIMENOrdering Facility: [facility] Address: [address] [address] Performed By: #### 2 4344-4 ####[facility] LABIA [id number] [place] [address] [place] Potassium [Moles/Vol] 4.7 mmol/L Normal 3.5-5.0 [facility] Comment on above: Order Comment: Speci men Type: VENOUS BLOOD SPECIMENOrdering Facility: [facility] Address: [address] [address] Performed By: #### 2 4344-4 ####[facility] LABIA [id number] [place] [address] [place] Sodium [Moles/Vol] 139 mmol/L Normal 136-144 [facility] Comment on above: Order Comment: Speci men Type: VENOUS BLOOD SPECIMENOrdering Facility: [facility] Address: [address] [address] Performed By: #### 2 4344-4 ####[facility] [id number] [place] [address] [place] Magnesium SerPl-mCncon 11-27 Magnesium [Mass/Vol] 2.2 mg/dL Normal 1.7-2.3 [facility] Comment on above: Order Comment: Speci men Type: BLOOD SPECIMENOrdering Facility: [facility] Address: [address] [address] Performed By: #### 1 9123-9, 12605-3, 2777-1 ####[facility] LABIA [id number] [place] [address] [place] Phosphate SerPl-mCncon 11-27 Phosphate [Mass/Vol] 3.9 mg/dL Normal 2.7-4.8 [facility] Comment on above: Order Comment: Speci men Type: BLOOD SPECIMENOrdering Facility: [facility] Address: [address] [place] [address] Performed By: #### 1 9123-9, 81951-3, 2777-1 ####[facility] LABCLIA [id number] [place] [address] [place] THERAPY NTon 11-27-2022 THERAPY NT Normal [facility] XR CHEST 1V FRONTAL PORTon 0 11-27-2022 XR CHEST 1V FRONTAL PORT Normal [facility] Bacteria Bld Culton 11-26-19 23 Bacteria identified Cx Nom (Bld) Abnormal [facility] Comment on above: Performed By: #### 6 00-7 ####[facility] LABCLIA [id number] [place] [address] [place] Bacteria identified Cx Nom (Bld) ORGANISM ID: 1 Klebsiella (enterobacter) aerogenes Refer to specimen collected on 11/26/2022 1147 ([id number]) GRAM STAIN: Gram negative bacilli Abnormal [facility] Comment on above: Performed By: #### 6 00-7 ####[facility] LABCLIA [id number] [place] [address] [place] CASE MANAGEMon 11-26-2022 CASE MANAGEM Normal [facility] CBC panel Auto (Bld)on 11-26 Erythrocyte distribution width (RBC) [Ratio] 16.9 % High 11.5-15.0 [facility] Comment on above: Order Comment: Speci men Type: BLOOD SPECIMENOrdering Facility: [facility] Address: [address] [place] [address] Performed By: #### 5 8410-2 ####[facility] LABCLIA [id number] [address] [place] Hematocrit (Bld) [Volume fraction] 34.9 % Low 39.0-51.0 [facility] Comment on above: Order Comment: Speci men Type: BLOOD SPECIMENOrdering Facility: [facility] Address: [address] [address] Performed By: #### 5 8410-2 ####[facility] LABIA [id number] [place] [address] [place] Hemoglobin (Bld) [Mass/Vol] 11.1 g/dL Low 13.0-17.0 [facility] Comment on above: Order Comment: Speci men Type: BLOOD SPECIMENOrdering Facility: [facility] Address: [address] [address] Performed By: #### 5 8410-2 ####[facility] [id number] [place] [address] [place] MCH (RBC) [Entitic mass] 28.2 pg Normal 26.0-34.0 [facility] Comment on above: Order Comment: Speci men Type: BLOOD SPECIMENOrdering Facility: [facility] Address: [address] Performed By: #### 5 8410-2 ####[facility] [id number] [place] [address] [place] MCHC (RBC) [Mass/Vol] 31.8 g/dL Normal 30.5-36.0 [facility] Comment on above: Order Comment: Speci men Type: BLOOD SPECIMENOrdering Facility: [facility] Address: [address] Performed By: #### 5 8410-2 ####[facility] LABIA [id number] [place] [address] [place] MCV (RBC) [Entitic vol] 88.8 fL Normal 80.0-100.0 [facility] Comment on above: Order Comment: Speci men Type: BLOOD SPECIMENOrdering Facility: [facility] Address: [address] [place], [place] [address] Performed By: #### 5 8410-2 ####[facility] LABCLIA [id number] [place] [address] [place] Nucleated RBC (Bld) [#/Vol] 10*3/uL Normal <0.01 [facility] Comment on above: Order Comment: Speci men Type: BLOOD SPECIMENOrdering Facility: [facility] Address: [address] [place] [address] Performed By: #### 5 8410-2 ####[facility] LABIA [id number] [place] [address] [place] Platelet mean volume (Bld) [Entitic vol] 12.2 fL Normal 9.0-12.7 [facility] Comment on above: Order Comment: Speci men Type: BLOOD SPECIMENOrdering Facility: [facility] Address: [address] [place] [address] Performed By: #### 5 8410-2 ####[facility] LABIA [id number] [place] [address] [place] Platelets (Bld) [#/Vol] 88 10*3/uL Low 150-400 [facility] Comment on above: Order Comment: Speci men Type: BLOOD SPECIMENOrdering Facility: [facility] Address: [address] [place] [address] Result Comment: Resu lts checked and verified.No clot detected. Performed By: #### 5 8410-2 ####[facility] LABIA [id number] [place] [address] [place] RBC (Bld) [#/Vol] 3.93 10*6/uL Low 4.20-6.00 [facility] Comment on above: Order Comment: Speci men Type: BLOOD SPECIMENOrdering Facility: [facility] Address: [address] [place] [address] Performed By: #### 5 8410-2 ####[facility] LABIA [id number] [place] [address] [place] WBC (Bld) [#/Vol] 4.71 10*3/uL Normal 3.70-11.00 [facility] Comment on above: Order Comment: Speci men Type: BLOOD SPECIMENOrdering Facility: [facility] Address: [address] [place] [address] Performed By: #### 5 8410-2 ####[facility] LABCLIA [id number] [place] [address] [place] CONSULT PROGon 11-26-2022 CONSULT PROG Normal [facility] CRP SerPl-mCncon 11-26-2022 CRP [Mass/Vol] 17.0 mg/dL High <0.9 [facility] Comment on above: Order Comment: Speci men Type: BLOOD SPECIMENOrdering Facility: [facility] Address: [address] [place] [address] Performed By: #### 2 4323-8, 21132-2, 1988-02 ####[facility] LABCLIA [id number] [place] [address] [place] Comprehensive metabolic 2000 panelon 11-26-2022 Albumin [Mass/Vol] 2.8 g/dL Low 3.9-4.9 [facility] Comment on above: Order Comment: Speci men Type: BLOOD SPECIMENOrdering Facility: [facility] Address: [address] [place], [place] [address] Performed By: #### 2 4323-8, 15270-8, 1988-02 ####[facility] LABCLIA [id number] [place] [address] [place] ALP [Catalytic activity/Vol] 95 U/L Normal 38-113 [facility] Comment on above: Order Comment: Speci men Type: BLOOD SPECIMENOrdering Facility: [facility] Address: [address] [place], [place] [address] Performed By: #### 2 4323-8, 1988-02 ####[facility] LABCLIA [id number] [place] [address] [place] ALT [Catalytic activity/Vol] U/L Low 10-54 [facility] Comment on above: Order Comment: Speci men Type: BLOOD SPECIMENOrdering Facility: [facility] Address: [address] [place] [address] Result Comment: Resu lt rechecked. Performed By: #### 2 432-8, 92970-7, 1988-02 ####[facility] LABCLIA [id number] [place] [address] [place] Anion gap [Moles/Vol] 10 mmol/L Normal 9-18 [facility] Comment on above: Order Comment: Speci men Type: BLOOD SPECIMENOrdering Facility: [facility] Address: [address] [place], [place] [address] Performed By: #### 2 4328, 68535-7, 1988-02 ####[facility] LABCLIA [id number] [place] [address] [place] AST [Catalytic activity/Vol] 10 U/L Low 14-40 [facility] Comment on above: Order Comment: Speci men Type: BLOOD SPECIMENOrdering Facility: [facility] Address: [address] [place], [place] [address] Performed By: #### 2 4323-8, 16474-7, 1988-02 ####[facility] LABCLIA [id number] [place] [id number] [place] Bilirubin [Mass/Vol] 0.4 mg/dL Normal 0.2-1.3 [facility] Comment on above: Order Comment: Speci men Type: BLOOD SPECIMENOrdering Facility: [facility] Address: [address] [place], [place] [address] Performed By: #### 2 4323-8, 74022-0, 1988-02 ####[facility] LABCLIA [id number] [place] [address] [place] Calcium [Mass/Vol] 8.1 mg/dL Low 8.5-10.2 [facility] Comment on above: Order Comment: Speci men Type: BLOOD SPECIMENOrdering Facility: [facility] Address: [address] [place] [address] Performed By: #### 2 432-8, 90452-4, 1988-02 ####[facility] LABCLIA [id number] [place] [address] [place] Chloride [Moles/Vol] 108 mmol/L High 97-105 [facility] Comment on above: Order Comment: Speci men Type: BLOOD SPECIMENOrdering Facility: [facility] Address: [address] [place] [address] Performed By: #### 2 4328, 56174-5, 1988-02 ####[facility] LABCLIA [id number] [place] [address] [place] CO2 [Moles/Vol] 20 mmol/L Low 22-30 [facility] Comment on above: Order Comment: Speci men Type: BLOOD SPECIMENOrdering Facility: [facility] Address: [address] [place] [address] Performed By: #### 2 4323-8, 73148-3, 1988-02 ####[facility] LABCLIA [id number] [place] [address] [place] Creatinine [Mass/Vol] 1.92 mg/dL High 0.73-1.22 [facility] Comment on above: Order Comment: Speci men Type: BLOOD SPECIMENOrdering Facility: [facility] Address: [address] [place] [address] Performed By: #### 2 4323-8, 60549-7, 1988-02 ####[facility] LABCLIA [id number] [place] [address] [place] ESTIMATED GLOMERULAR FILTRATION RATE 38 mL/min/1.73m??? Low >=60 [facility] Comment on above: Order Comment: Chaz trevizo Type: BLOOD SPECIMENOrdering Facility: [facility] Address: [address] [place] [address] Result Comment: Karina mated Glomerular Filtration Rate [...] actual GFR. Performed By: #### 2 4323-8, 87788-4, 1988-02 ####[facility] LABIA [id number] [place] [address] [place] Glucose [Mass/Vol] 88 mg/dL Normal 74-99 [facility] Comment on above: Order Comment: Chaz trevizo Type: BLOOD SPECIMENOrdering Facility: [facility] Address: [address] [place], [place] [address] Result Comment: The [place] [employer] (ADA) provides guidance for cutoff [...] Standards of Medical Care in Diabetes 2016, [place] [employer]. Diabetes Care. 2016.39(Suppl 1). Performed By: #### 2 4323-8, 47458-4, 1988-02 ####[facility] [id number] [place] [id number] [place] Potassium [Moles/Vol] 4.4 mmol/L Normal 3.7-5.1 [facility] Comment on above: Order Comment: Speci men Type: BLOOD SPECIMENOrdering Facility: [facility] Address: [facility] [place] [id number] Performed By: #### 2 432-8, 18787-2, 1988-02 ####[facility] LABCLIA [id number] [facility] [address] [place] Protein [Mass/Vol] 5.2 g/dL Low 6.3-8.0 [facility] Comment on above: Order Comment: Speci men Type: BLOOD SPECIMENOrdering Facility: [facility] Address: [address] [place] [id number] Performed By: #### 2 432-8, 34395-4, 1988-02 ####[facility] LABCLIA [id number] [place] [address] [place] Sodium [Moles/Vol] 138 mmol/L Normal 136-144 [facility] Comment on above: Order Comment: Speci men Type: BLOOD SPECIMENOrdering Facility: [facility] Address: [address] [facility] [place] [id number] Performed By: #### 2 432-8, 10332-5, 1988-02 ####[facility] LABCLIA [id number] [place] [id number] [place] Urea nitrogen [Mass/Vol] 44 mg/dL High 9-24 [facility] Comment on above: Order Comment: Speci men Type: BLOOD SPECIMENOrdering Facility: [facility] Address: [place] [address] Performed By: #### 2 4323-8, 29153-3, 1988-02 ####[facility] LABCLIA [id number] [facility] [address] [address] [place] ECG COMPLETEon 11-26-2022 ECG COMPLETE Normal [facility] HISTORY PHYSICALon HISTORY PHYSICAL Normal [facility] MEDICAL EMERon 11-26-2022 MEDICAL KALEB Normal [facility] NURSING PROGon 11-26-2022 NURSING PROG Normal [facility] NUTRITIONon 11-26-2022 NUTRITION Normal [facility] PT panel Coag (PPP)on 2022 INR Coag (PPP) [Relative time] 1.2 {INR} Normal 0.9-1.3 [facility] Comment on above: Order Comment: Speci men Type: BLOOD SPECIMENOrdering Facility: [facility] Address: [address] [address] Result Comment: Bouchra min K Antagonist (VKA) Therapeutic Range: INR 2 to 3 (Target INR of 2.5)Note: For patients treated with VKA drugs, such as warfarin, the [employer] [place] [employer] 2012 Guideline recommends [...] al. Chest 2012, 141:7S-47SAlma RA, et al. [facility] 2017, 70: 252-289 Performed By: #### 3 4528-0 ####[facility] LABIA [id number] [place] [address] [place] PT Coag (PPP) [Time] 12.2 s Normal 9.7-13.0 [facility] Comment on above: Order Comment: Speci joseline Type: BLOOD SPECIMENOrdering Facility: [facility] Address: [address] [id number] Performed By: #### 3 4528-0 ####[facility] LABIA [id number] [place] [address] [place] Procalcitonin SerPl-mCncon 0 11-26-2022 Procalcitonin [Mass/Vol] 11.48 ng/mL High <0.09 [facility] Comment on above: Order Comment: Speci men Type: BLOOD SPECIMENOrdering Facility: [facility] Address: [address] [place] [address] Result Comment: For a guided interpretation of test results, please visit the [facility] in Procalcitonin Calculator, [email or web address]. Performed By: #### 2 4323-8, 88141-9, 1988-02 ####[facility] LABCLIA [id number] [place] [address] [place] SEPSIS LACTATEon 11-26-2022 Lactate [Moles/Vol] 2.4 mmol/L High <=2.0 [facility] Comment on above: Order Comment: Speci men Type: BLOOD SPECIMENOrdering Facility: [facility] Address: [address] [place] [address] Performed By: #### S LACT ####[facility] LABCLIA [id number] [place] [address] [place] STAPH AUREUS PCRon 3 S. aureus and MRSA panel KELLIE+probe (Nose) Normal Negative [facility] Comment on above: Order Comment: Speci men Type: SWAB OF INTERNAL NOSEOrdering Facility: [facility] Address: [address] [place] [address] Result Comment: Nega tive for Staphylococcus aureus by PCR.Negative for MRSA by PCR Performed By: #### S APCR ####[facility] LABCLIA [id number] [place] [address] [place] THERAPY NTon 11-26-2022 THERAPY NT Normal [facility] THERAPY NT Normal [facility] US KIDNEY/BLADDERon 11-26-19 US KIDNEY/BLADDER Normal [facility] Urinalysis complete pnl Uron 11-26-2022 Urinalysis complete panel (U) Normal [facility] Comment on above: Order Comment: Speci men Type: URINE SPECIMENOrdering Facility: [facility] Address: [address] [place] [address] Performed By: #### 2 4356-8 ####[facility] LABCLIA [id number] [place] [address] [place] XR CHEST 1V FRONTAL PORTon 0 11-26-2022 XR CHEST 1V FRONTAL PORT Normal [facility] CASE MGT INIT ASSESon 2022 CASE MGT INIT ASSES Normal [facility] CBC panel Auto (Bld)on 11-25 Erythrocyte distribution width (RBC) [Ratio] 17.2 % High 11.5-15.0 [facility] Comment on above: Order Comment: Speci men Type: BLOOD SPECIMENOrdering Facility: [facility] Address: [address] [place], [place] [address] Performed By: #### 5 8410-2 ####[facility] LABIA [id number] [place] [address] [place] Hematocrit (Bld) [Volume fraction] 36.9 % Low 39.0-51.0 [facility] Comment on above: Order Comment: Speci men Type: BLOOD SPECIMENOrdering Facility: [facility] Address: [address] [place], [place] [address] Performed By: #### 5 8410-2 ####[facility] LABCLIA [id number] [place] [address] [place] Hemoglobin (Bld) [Mass/Vol] 11.6 g/dL Low 13.0-17.0 [facility] Comment on above: Order Comment: Speci men Type: BLOOD SPECIMENOrdering Facility: [facility] Address: [address] [place], [place] [address] Performed By: #### 5 8410-2 ####[facility] LABCLIA [id number] [address] [place] [facility] MCH (RBC) [Entitic mass] 27.8 pg Normal 26.0-34.0 [facility] Comment on above: Order Comment: Speci men Type: BLOOD SPECIMENOrdering Facility: [facility] Address: [address] [place] [address] Performed By: #### 5 8410-2 ####[facility] LABCLIA [id number] [address] MCHC (RBC) [Mass/Vol] 31.4 g/dL Normal 30.5-36.0 [facility] Comment on above: Order Comment: Speci men Type: BLOOD SPECIMENOrdering Facility: [facility] Address: [address] [place] [address] Performed By: #### 5 8410-2 ####[facility] LABIA [id number] [address] OF [facility] MCV (RBC) [Entitic vol] 88.3 fL Normal 80.0-100.0 [facility] Comment on above: Order Comment: Speci men Type: BLOOD SPECIMENOrdering Facility: [facility] Address: [address] [place] [address] Performed By: #### 5 8410-2 ####[facility] LABIA [id number] [place] [address] [place] Nucleated RBC (Bld) [#/Vol] 10*3/uL Normal <0.01 [facility] Comment on above: Order Comment: Speci men Type: BLOOD SPECIMENOrdering Facility: [facility] Address: [address] [place] [address] Performed By: #### 5 8410-2 ####[facility] LABCLIA [id number] [place] [address] [place] Platelet mean volume (Bld) [Entitic vol] 12.0 fL Normal 9.0-12.7 [facility] Comment on above: Order Comment: Speci men Type: BLOOD SPECIMENOrdering Facility: [facility] Address: [address] [place], [place] [address] Performed By: #### 5 8410-2 ####[facility] LABCLIA [id number] [place] [address] [place] Platelets (Bld) [#/Vol] 96 10*3/uL Low 150-400 [facility] Comment on above: Order Comment: Speci men Type: BLOOD SPECIMENOrdering Facility: [facility] Address: [address] [place], [place] [address] Result Comment: No c lot detected. Performed By: #### 5 8410-2 ####[facility] LABCLIA [id number] [place] [address] [place] RBC (Bld) [#/Vol] 4.18 10*6/uL Low 4.20-6.00 [facility] Comment on above: Order Comment: Speci men Type: BLOOD SPECIMENOrdering Facility: [facility] Address: [address] [place], [place] [address] Performed By: #### 5 8410-2 ####[facility] LABCLIA [id number] [place] [address] [place] WBC (Bld) [#/Vol] 5.31 10*3/uL Normal 3.70-11.00 [facility] Comment on above: Order Comment: Speci men Type: BLOOD SPECIMENOrdering Facility: [facility] Address: [address] [place], [place] [address] Performed By: #### 5 8410-2 ####[facility] LABCLIA [id number] [place] [address] [place] CONSULT PROGon 11-25-2022 CONSULT PROG Normal [facility] CONSULT PROG Normal [facility] Comprehensive metabolic 2000 panelon 02-07-2023 Albumin [Mass/Vol] 3.1 g/dL Low 3.9-4.9 [facility] Comment on above: Order Comment: Speci men Type: BLOOD SPECIMENOrdering Facility: [facility] Address: [address] [address] Performed By: #### 2 4323-8 ####[facility] LABCLIA [id number] [place] [address] [place] ALP [Catalytic activity/Vol] 98 U/L Normal 38-113 [facility] Comment on above: Order Comment: Speci men Type: BLOOD SPECIMENOrdering Facility: [facility] Address: [address] [place] [address] Performed By: #### 2 4323-8 ####[facility] LABIA [id number] [place] [address] [place] ALT [Catalytic activity/Vol] U/L Low 10-54 [facility] Comment on above: Order Comment: Speci men Type: BLOOD SPECIMENOrdering Facility: [facility] Address: [address] [place] [address] Result Comment: Resu lt rechecked. Performed By: #### 2 4323-8 ####[facility] LABCLIA [id number] [place] [address] [place] Anion gap [Moles/Vol] 9 mmol/L Normal 9-18 [facility] Comment on above: Order Comment: Speci men Type: BLOOD SPECIMENOrdering Facility: [facility] Address: [address] [address] Performed By: #### 2 4323-8 ####[facility] LABIA [id number] [place] [address] [place] AST [Catalytic activity/Vol] 8 U/L Low 14-40 [facility] Comment on above: Order Comment: Speci men Type: BLOOD SPECIMENOrdering Facility: [facility] Address: [address] [address] Performed By: #### 2 4323-8 ####[facility] LABCLIA [id number] [place] [address] [place] Bilirubin [Mass/Vol] 0.4 mg/dL Normal 0.2-1.3 [facility] Comment on above: Order Comment: Speci men Type: BLOOD SPECIMENOrdering Facility: [facility] Address: [address] Performed By: #### 2 4323-8 ####[facility] LABCLIA [id number] [place] [address] [place] Calcium [Mass/Vol] 8.4 mg/dL Low 8.5-10.2 [facility] Comment on above: Order Comment: Speci men Type: BLOOD SPECIMENOrdering Facility: [facility] Address: [address] [place], [place] [address] Performed By: #### 2 4323-8 ####[facility] LABCLIA [id number] [place] [address] [place] Chloride [Moles/Vol] 109 mmol/L High 97-105 [facility] Comment on above: Order Comment: Speci men Type: BLOOD SPECIMENOrdering Facility: [facility] Address: [address] [place], [place] [address] Performed By: #### 2 4323-8 ####[facility] LABCLIA [id number] [place] [address] [place] CO2 [Moles/Vol] 22 mmol/L Normal 22-30 [facility] Comment on above: Order Comment: Speci men Type: BLOOD SPECIMENOrdering Facility: [facility] Address: [address] [place], [place] [address] Performed By: #### 2 4323-8 ####[facility] LABCLIA [id number] [place] [address] [id number] [address] [place] Creatinine [Mass/Vol] 1.18 mg/dL Normal 0.73-1.22 [facility] Comment on above: Order Comment: Chaz trevizo Type: BLOOD SPECIMENOrdering Facility: [facility] Address: [address] [id number] Performed By: #### 2 4323-8 ####[facility] LABCLIA [id number] [address] ESTIMATED GLOMERULAR FILTRATION RATE 69 mL/min/1.73m??? Normal >=60 [facility] Comment on above: Order Comment: Chaz trevizo Type: BLOOD SPECIMENOrdering Facility: [facility] Address: [address] [address] Result Comment: Karina mated Glomerular Filtration Rate [...] actual GFR. Performed By: #### 2 4323-8 ####[facility] LABCLIA [id number] [address] [place] Glucose [Mass/Vol] 102 mg/dL High 74-99 [facility] Comment on above: Order Comment: Chaz trevizo Type: BLOOD SPECIMENOrdering Facility: [facility] Address: [address] [address] Result Comment: The [place] [employer] (ADA) provides guidance for cutoff [...] Standards of Medical Care in Diabetes 2016, [place] [employer]. Diabetes Care. 2016.39(Suppl 1). Performed By: #### 2 4323-8 ####[facility] LABCLIA [id number] [place] [address] [place] Potassium [Moles/Vol] 4.8 mmol/L Normal 3.7-5.1 [facility] Comment on above: Order Comment: Speci men Type: BLOOD SPECIMENOrdering Facility: [facility] Address: [address] [address] Performed By: #### 2 4323-8 ####[facility] LABCLIA [id number] [place] [address] [place] Protein [Mass/Vol] 5.5 g/dL Low 6.3-8.0 [facility] Comment on above: Order Comment: Speci men Type: BLOOD SPECIMENOrdering Facility: [facility] Address: [address] [address] Performed By: #### 2 4323-8 ####[facility] LABCLIA [id number] [place] [address] [place] Sodium [Moles/Vol] 140 mmol/L Normal 136-144 [facility] Comment on above: Order Comment: Speci men Type: BLOOD SPECIMENOrdering Facility: [facility] Address: [address] Performed By: #### 2 4323-8 ####[facility] LABCLIA [id number] [place] [address] [place] Urea nitrogen [Mass/Vol] 31 mg/dL High 9-24 [facility] Comment on above: Order Comment: Speci men Type: BLOOD SPECIMENOrdering Facility: [facility] Address: [address] Performed By: #### 2 4323-8 ####[facility] LABCLIA [id number] [place] [address] [place] THERAPY NTon 11-25-2022 THERAPY NT Normal [facility] CBC panel Auto (Bld)on 11-24 Erythrocyte distribution width (RBC) [Ratio] 17.2 % High 11.5-15.0 [facility] Comment on above: Order Comment: Speci men Type: BLOOD SPECIMENOrdering Facility: [facility] Address: [address] [place] [address] Performed By: #### 5 8410-2 ####[facility] LABIA [id number] [address] [place] Hematocrit (Bld) [Volume fraction] 37.8 % Low 39.0-51.0 [facility] Comment on above: Order Comment: Speci men Type: BLOOD SPECIMENOrdering Facility: [facility] Address: [address] [place] [address] Performed By: #### 5 8410-2 ####[facility] [id number] [address] [place] Hemoglobin (Bld) [Mass/Vol] 12.1 g/dL Low 13.0-17.0 [facility] Comment on above: Order Comment: Speci men Type: BLOOD SPECIMENOrdering Facility: [facility] Address: [address] [place], [place] [address] Performed By: #### 5 8410-2 ####[facility] LABIA [id number] [place] [address] [place] MCH (RBC) [Entitic mass] 28.4 pg Normal 26.0-34.0 [facility] Comment on above: Order Comment: Speci men Type: BLOOD SPECIMENOrdering Facility: [facility] Address: [address] [place] [address] Performed By: #### 5 8410-2 ####[facility] LABIA [id number] [place] [address] [place] OF [facility] MCHC (RBC) [Mass/Vol] 32.0 g/dL Normal 30.5-36.0 [facility] Comment on above: Order Comment: Speci men Type: BLOOD SPECIMENOrdering Facility: [facility] Address: [address] [place] [address] Performed By: #### 5 8410-2 ####[facility] LABIA [id number] [place] [address] [place] MCV (RBC) [Entitic vol] 88.7 fL Normal 80.0-100.0 [facility] Comment on above: Order Comment: Speci men Type: BLOOD SPECIMENOrdering Facility: [facility] Address: [address] [place] [address] Performed By: #### 5 8410-2 ####[facility] LABIA [id number] [place] [address] [place] Nucleated RBC (Bld) [#/Vol] 10*3/uL Normal <0.01 [facility] Comment on above: Order Comment: Speci men Type: BLOOD SPECIMENOrdering Facility: [facility] Address: [address] [place], [place] [address] Performed By: #### 5 8410-2 ####[facility] LABIA [id number] [place] [address] [place] Platelet mean volume (Bld) [Entitic vol] 12.2 fL Normal 9.0-12.7 [facility] Comment on above: Order Comment: Speci men Type: BLOOD SPECIMENOrdering Facility: [facility] Address: [address] [place] [address] Performed By: #### 5 8410-2 ####[facility] LABCLIA [id number] [place] [address] [place] Platelets (Bld) [#/Vol] 111 10*3/uL Low 150-400 [facility] Comment on above: Order Comment: Speci men Type: BLOOD SPECIMENOrdering Facility: [facility] Address: [address] Performed By: #### 5 8410-2 ####[facility] LABCLIA [id number] [place] [address] [place] RBC (Bld) [#/Vol] 4.26 10*6/uL Normal 4.20-6.00 [facility] Comment on above: Order Comment: Speci men Type: BLOOD SPECIMENOrdering Facility: [facility] Address: [address] Performed By: #### 5 8410-2 ####[facility] LABCLIA [id number] [place] [address] [place] WBC (Bld) [#/Vol] 4.79 10*3/uL Normal 3.70-11.00 [facility] Comment on above: Order Comment: Speci men Type: BLOOD SPECIMENOrdering Facility: [facility] Address: [address] Performed By: #### 5 8410-2 ####[facility] LABCLIA [id number] [place] [address] [place] CONSULTon 11-24-2022 CONSULT Normal [facility] CONSULT Normal [facility] CONSULT PROGon 11-24-2022 CONSULT PROG Normal [facility] Comprehensive metabolic 2000 panelon 11-24-2022 Albumin [Mass/Vol] 3.3 g/dL Low 3.9-4.9 [facility] Comment on above: Order Comment: Speci men Type: BLOOD SPECIMENOrdering Facility: [facility] Address: [address] [place] [address] Performed By: #### 1 9123-9, 2777-1, 02943-7 ####[facility] LABCLIA [id number] [place] [address] [place] ALP [Catalytic activity/Vol] 91 U/L Normal 38-113 [facility] Comment on above: Order Comment: Speci men Type: BLOOD SPECIMENOrdering Facility: [facility] Address: [address] [place], [place] [address] Performed By: #### 1 9123-9, 27704-18, 82471-4 ####[facility] LABCLIA [id number] [address] [place] [facility] ALT [Catalytic activity/Vol] U/L Low 10-54 [facility] Comment on above: Order Comment: Speci men Type: BLOOD SPECIMENOrdering Facility: [facility] Address: [address] [place] [address] Result Comment: Resu lt rechecked. Performed By: #### 1 9123-9, 2776-10, 68286-3 ####[facility] LABCLIA [id number] [place] [address] [place] [facility] Anion gap [Moles/Vol] 8 mmol/L Low 9-18 [facility] Comment on above: Order Comment: Speci men Type: BLOOD SPECIMENOrdering Facility: [facility] Address: [address] [place], [place] [address] Performed By: #### 1 9123-9, 2776-10, 22904-5 ####[facility] LABCLIA [id number] [address] OF [facility] AST [Catalytic activity/Vol] 9 U/L Low 14-40 [facility] Comment on above: Order Comment: Speci men Type: BLOOD SPECIMENOrdering Facility: [facility] Address: [address] [place], [place] [address] Performed By: #### 1 9123-9, 2776-10, 76823-3 ####[facility] LABCLIA [id number] [place] [address] [place] Bilirubin [Mass/Vol] 0.2 mg/dL Normal 0.2-1.3 [facility] Comment on above: Order Comment: Speci men Type: BLOOD SPECIMENOrdering Facility: [facility] Address: [address] [address] Performed By: #### 1 9123-9, 2776-10, ####[facility] LABCLIA [id number] [facility] [address] [place] Calcium [Mass/Vol] 8.3 mg/dL Low 8.5-10.2 [facility] Comment on above: Order Comment: Speci men Type: BLOOD SPECIMENOrdering Facility: [facility] Address: [address] [address] Performed By: #### 1 9123-9, 2776-10, ####[facility] LABCLIA [id number] [place] [address] [place] Chloride [Moles/Vol] 110 mmol/L High 97-105 [facility] Comment on above: Order Comment: Speci men Type: BLOOD SPECIMENOrdering Facility: [facility] Address: [address] Performed By: #### 1 9123-9, 2776-10, ####[facility] LABCLIA [id number] [facility] [place] [place] [address] [place] CO2 [Moles/Vol] 24 mmol/L Normal 22-30 [facility] Comment on above: Order Comment: Speci men Type: BLOOD SPECIMENOrdering Facility: [facility] Address: [address] Performed By: #### 1 9123-9, 2776-10, ####[facility] LABCLIA [id number] [facility] [address] [place] Creatinine [Mass/Vol] 0.94 mg/dL Normal 0.73-1.22 [facility] Comment on above: Order Comment: Chaz trevizo Type: BLOOD SPECIMENOrdering Facility: [facility] Address: [address] [id number] Performed By: #### 1 9123-9, 2777-1, 26320-4 ####[facility] LABCLIA [id number] [place] [address] [place] ESTIMATED GLOMERULAR FILTRATION RATE 91 mL/min/1.73m??? Normal >=60 [facility] Comment on above: Order Comment: Chaz trevizo Type: BLOOD SPECIMENOrdering Facility: [facility] Address: [address] Result Comment: Karina mated Glomerular Filtration [...] GFR. Performed By: #### 1 9123-9, 2777-1, 26869-4 ####[facility] LABCLIA [id number] [place] [address] [place] Glucose [Mass/Vol] 68 mg/dL Low 74-99 [facility] Comment on above: Order Comment: Chaz trevizo Type: BLOOD SPECIMENOrdering Facility: [facility] Address: [address] [id number] Result Comment: The [place] [employer] (ADA) provides guidance for cutoff [...] Standards of Medical Care in Diabetes 2016, [place] [employer]. Diabetes Care. 2016.39(Suppl 1). Performed By: #### 1 9123-9, 2777-1, 86681-8 ####[facility] LABCLIA [id number] [address] [address] [place] Potassium [Moles/Vol] 4.1 mmol/L Normal 3.7-5.1 [facility] Comment on above: Order Comment: Speci men Type: BLOOD SPECIMENOrdering Facility: [facility] Address: [address] [id number] Performed By: #### 1 9123-9, 2777-, 69592-8 ####[facility] LABIA [id number] [place] [address] [place] Protein [Mass/Vol] 5.7 g/dL Low 6.3-8.0 [facility] Comment on above: Order Comment: Speci men Type: BLOOD SPECIMENOrdering Facility: [facility] Address: [address] Performed By: #### 1 9123-9, 27704-18, 03586-4 ####[facility] [id number] [place] [address] [place] Sodium [Moles/Vol] 142 mmol/L Normal 136-144 [facility] Comment on above: Order Comment: Speci men Type: BLOOD SPECIMENOrdering Facility: [facility] Address: [address] [place] [address] Performed By: #### 1 9123-9, 27704-18, 21780-1 ####[facility] LABIA [id number] [address] [address] [place] Urea nitrogen [Mass/Vol] 22 mg/dL Normal 9-24 [facility] Comment on above: Order Comment: Speci men Type: BLOOD SPECIMENOrdering Facility: [facility] Address: [address] [id number] Performed By: #### 1 9123-9, 2777-, 08299-4 ####[facility] LABCLIA [id number] [place] [address] [place] [facility] Magnesium SerPl-ncon 11-24 Magnesium [Mass/Vol] 2.2 mg/dL Normal 1.7-2.3 [facility] Comment on above: Order Comment: Speci men Type: BLOOD SPECIMENOrdering Facility: [facility] Address: [address] [address] Performed By: #### 1 9123-9, 2777, 41561-1 ####[facility] LABCLIA [id number] [address] STATES OF [facility] Phosphate SerPl-mCncon 11-24 Phosphate [Mass/Vol] 3.3 mg/dL Normal 2.7-4.8 [facility] Comment on above: Order Comment: Speci men Type: BLOOD SPECIMENOrdering Facility: [facility] Address: [address] [place] [address] Performed By: #### 1 9123-9, 2777-, 44371-0 ####[facility] LABIA [id number] [address] [place] CBC panel Auto (Bld)on 11-23 Erythrocyte distribution width (RBC) [Ratio] 16.8 % High 11.5-15.0 [facility] Comment on above: Order Comment: Speci men Type: BLOOD SPECIMENOrdering Facility: [facility] Address: [address] [place] [address] Performed By: #### 5 8410-2 ####[facility] LABCLIA [id number] [address] [place] Hematocrit (Bld) [Volume fraction] 35.7 % Low 39.0-51.0 [facility] Comment on above: Order Comment: Speci men Type: BLOOD SPECIMENOrdering Facility: [facility] Address: [address] [place] [address] Performed By: #### 5 8410-2 ####[facility] [id number] [place] [address] [place] Hemoglobin (Bld) [Mass/Vol] 11.3 g/dL Low 13.0-17.0 [facility] Comment on above: Order Comment: Speci men Type: BLOOD SPECIMENOrdering Facility: [facility] Address: [address] [place] [address] Performed By: #### 5 8410-2 ####[facility] [id number] [place] [address] [place] MCH (RBC) [Entitic mass] 27.9 pg Normal 26.0-34.0 [facility] Comment on above: Order Comment: Speci men Type: BLOOD SPECIMENOrdering Facility: [facility] Address: [address] [address] Performed By: #### 5 8410-2 ####[facility] [id number] [place] [address] [place] MCHC (RBC) [Mass/Vol] 31.7 g/dL Normal 30.5-36.0 [facility] Comment on above: Order Comment: Speci men Type: BLOOD SPECIMENOrdering Facility: [facility] Address: [address] Performed By: #### 5 8410-2 ####[facility] LABIA [id number] [place] [address] [place] MCV (RBC) [Entitic vol] 88.1 fL Normal 80.0-100.0 [facility] Comment on above: Order Comment: Speci men Type: BLOOD SPECIMENOrdering Facility: [facility] Address: [address] [place], [place] [address] Performed By: #### 5 8410-2 ####[facility] LABCLIA [id number] [place] [address] [place] Nucleated RBC (Bld) [#/Vol] 10*3/uL Normal <0.01 [facility] Comment on above: Order Comment: Speci men Type: BLOOD SPECIMENOrdering Facility: [facility] Address: [address] [place], [place] [address] Performed By: #### 5 8410-2 ####[facility] LABIA [id number] [place] [address] [place] Platelet mean volume (Bld) [Entitic vol] 12.7 fL Normal 9.0-12.7 [facility] Comment on above: Order Comment: Speci men Type: BLOOD SPECIMENOrdering Facility: [facility] Address: [address] [place] [address] Performed By: #### 5 8410-2 ####[facility] LABIA [id number] [place] [address] [place] Platelets (Bld) [#/Vol] 106 10*3/uL Low 150-400 [facility] Comment on above: Order Comment: Speci men Type: BLOOD SPECIMENOrdering Facility: [facility] Address: [address] [place], [place] [address] Performed By: #### 5 8410-2 ####[facility] LABIA [id number] [place] [address] [place] RBC (Bld) [#/Vol] 4.05 10*6/uL Low 4.20-6.00 [facility] Comment on above: Order Comment: Speci men Type: BLOOD SPECIMENOrdering Facility: [facility] Address: [address] [place], [place] [address] Performed By: #### 5 8410-2 ####[facility] LABIA [id number] [place] [address] [place] WBC (Bld) [#/Vol] 2.81 10*3/uL Low 3.70-11.00 [facility] Comment on above: Order Comment: Speci men Type: BLOOD SPECIMENOrdering Facility: [facility] Address: [address] [place] [address] Performed By: #### 5 8410-2 ####[facility] LABCLIA [id number] [place] [address] [place] [facility] Comprehensive metabolic 2000 panelon 11-23-2022 Albumin [Mass/Vol] 3.2 g/dL Low 3.9-4.9 [facility] Comment on above: Order Comment: Speci men Type: BLOOD SPECIMENOrdering Facility: [facility] Address: [address] [place], [place] [address] Performed By: #### 1 9123-9, 2777-, 92821-8 ####[facility] LABIA [id number] [place] [address] [place] ALP [Catalytic activity/Vol] 84 U/L Normal 38-113 [facility] Comment on above: Order Comment: Speci men Type: BLOOD SPECIMENOrdering Facility: [facility] Address: [address] [place], [place] [address] Performed By: #### 1 9123-9, 2777-1, 70227-5 ####[facility] LABIA [id number] [address] [place] ALT [Catalytic activity/Vol] U/L Low 10-54 [facility] Comment on above: Order Comment: Speci men Type: BLOOD SPECIMENOrdering Facility: [facility] Address: [address] [place], [place] [address] Performed By: #### 1 9123-9, 2777-1, 30450-7 ####[facility] LABIA [id number] [place] [address] [place] Anion gap [Moles/Vol] 10 mmol/L Normal 9-18 [facility] Comment on above: Order Comment: Speci men Type: BLOOD SPECIMENOrdering Facility: [facility] Address: [place] [address] Performed By: #### 1 9123-9, 27704-18, 80092-4 ####[facility] LABCLIA [id number] [place] [address] [place] AST [Catalytic activity/Vol] 13 U/L Low 14-40 [facility] Comment on above: Order Comment: Speci men Type: BLOOD SPECIMENOrdering Facility: [facility] Address: [address] [place], [place] [address] Performed By: #### 1 9123-9, 27704-18, 28735-8 ####[facility] LABCLIA [id number] [place] [address] [place] Bilirubin [Mass/Vol] 0.2 mg/dL Normal 0.2-1.3 [facility] Comment on above: Order Comment: Speci men Type: BLOOD SPECIMENOrdering Facility: [facility] Address: [address] [place], [place] [address] Performed By: #### 1 9123-9, 2776-10, ####[facility] LABCLIA [id number] [place] [address] [place] Calcium [Mass/Vol] 8.3 mg/dL Low 8.5-10.2 [facility] Comment on above: Order Comment: Speci men Type: BLOOD SPECIMENOrdering Facility: [facility] Address: [address] [place] [address] Performed By: #### 1 9123-9, 2776-10, 02573-7 ####[facility] LABCLIA [id number] [place] [id number] [place] Chloride [Moles/Vol] 112 mmol/L High 97-105 [facility] Comment on above: Order Comment: Speci men Type: BLOOD SPECIMENOrdering Facility: [facility] Address: [address] Performed By: #### 1 9123-9, 2776-10, ####[facility] LABCLIA [id number] [place] [address] [place] CO2 [Moles/Vol] 21 mmol/L Low 22-30 [facility] Comment on above: Order Comment: Speci men Type: BLOOD SPECIMENOrdering Facility: [facility] Address: [address] [address] Performed By: #### 1 9123-9, 2776-10, ####[facility] LABCLIA [id number] [place] [address] [place] Creatinine [Mass/Vol] 0.84 mg/dL Normal 0.73-1.22 [facility] Comment on above: Order Comment: Speci men Type: BLOOD SPECIMENOrdering Facility: [facility] Address: [address] [place], [place] [id number] Performed By: #### 1 9123-9, 2776-10, ####[facility] LABCLIA [id number] [place] [address] [place] ESTIMATED GLOMERULAR FILTRATION RATE 97 mL/min/1.73m??? Normal >=60 [facility] Comment on above: Order Comment: Speci men Type: BLOOD SPECIMENOrdering Facility: [facility] Address: [address] [place], [place] [id number] Result Comment: Karina mated Glomerular Filtration Rate [...] GFR. Performed By: #### 1 9123-9, 2777, ####[facility] LABCLIA [id number] [place] [address] [place] Glucose [Mass/Vol] 102 mg/dL High 74-99 [facility] Comment on above: Order Comment: Speci men Type: BLOOD SPECIMENOrdering Facility: [facility] Address: [address] [place], [place] [address] Result Comment: The [employer] [place] [employer] (ADA) provides guidance for cutoff [...] Standards of Medical Care in Diabetes 2016, [employer] [place] [employer]. Diabetes Care. 2016.39(Suppl 1). Performed By: #### 1 9123-9, 27704-18, ####[facility] LABCLIA [id number] [place] [address] [place] Potassium [Moles/Vol] 4.3 mmol/L Normal 3.7-5.1 [facility] Comment on above: Order Comment: Speci men Type: BLOOD SPECIMENOrdering Facility: [facility] Address: [address] [place] [address] Performed By: #### 1 9123-9, 2777-, ####[facility] LABIA [id number] [place] [address] [place] Protein [Mass/Vol] 5.3 g/dL Low 6.3-8.0 [facility] Comment on above: Order Comment: Speci men Type: BLOOD SPECIMENOrdering Facility: [facility] Address: [address] [address] Performed By: #### 1 9123-9, 2777-1, 58633-7 ####[facility] LABCLIA [id number] [place] [address] [place] Sodium [Moles/Vol] 143 mmol/L Normal 136-144 [facility] Comment on above: Order Comment: Speci men Type: BLOOD SPECIMENOrdering Facility: [facility] Address: [address] [place] [address] Performed By: #### 1 9123-9, 2777-1, 07324-3 ####[facility] LABCLIA [id number] [place] [address] [place] Urea nitrogen [Mass/Vol] 21 mg/dL Normal 9-24 [facility] Comment on above: Order Comment: Speci men Type: BLOOD SPECIMENOrdering Facility: [facility] Address: [address] [place] [address] Performed By: #### 1 9123-9, 2777-, 36662-0 ####[facility] LABCLIA [id number] [place] [address] [place] Magnesium SerPl-mCncon 11-23 Magnesium [Mass/Vol] 2.0 mg/dL Normal 1.7-2.3 [facility] Comment on above: Order Comment: Speci men Type: BLOOD SPECIMENOrdering Facility: [facility] Address: [address] [place], [place] [address] Performed By: #### 1 9123-9, 2777-1, 92866-0 ####[facility] LABCLIA [id number] [place] [address] [place] Phosphate SerPl-mCncon 11-23 Phosphate [Mass/Vol] 2.8 mg/dL Normal 2.7-4.8 [facility] Comment on above: Order Comment: Speci men Type: BLOOD SPECIMENOrdering Facility: [facility] Address: [address] [place] [address] Performed By: #### 1 9123-9, 2777-1, 31358-1 ####[facility] LABIA [id number] [address] [place] THERAPY NTon 11-23-2022 THERAPY NT Normal [facility] CBC panel Auto (Bld)on 11-22 Erythrocyte distribution width (RBC) [Ratio] 16.4 % High 11.5-15.0 [facility] Comment on above: Order Comment: Speci men Type: BLOOD SPECIMENOrdering Facility: [facility] Address: [address] [place] [address] Performed By: #### 5 8410-2 ####[facility] LABIA [id number] [address] Hematocrit (Bld) [Volume fraction] 36.4 % Low 39.0-51.0 [facility] Comment on above: Order Comment: Speci men Type: BLOOD SPECIMENOrdering Facility: [facility] Address: [address] [place] [address] Performed By: #### 5 8410-2 ####[facility] LABIA [id number] [address] [place] Hemoglobin (Bld) [Mass/Vol] 11.6 g/dL Low 13.0-17.0 [facility] Comment on above: Order Comment: Speci men Type: BLOOD SPECIMENOrdering Facility: [facility] Address: [address] [place] [address] Performed By: #### 5 8410-2 ####[facility] LABIA [id number] [address] [place] MCH (RBC) [Entitic mass] 28.2 pg Normal 26.0-34.0 [facility] Comment on above: Order Comment: Speci men Type: BLOOD SPECIMENOrdering Facility: [facility] Address: [address] Performed By: #### 5 8410-2 ####[facility] [id number] [address] [place] MCHC (RBC) [Mass/Vol] 31.9 g/dL Normal 30.5-36.0 [facility] Comment on above: Order Comment: Speci men Type: BLOOD SPECIMENOrdering Facility: [facility] Address: [address] [address] Performed By: #### 5 8410-2 ####[facility] [id number] [place] [address] [place] MCV (RBC) [Entitic vol] 88.6 fL Normal 80.0-100.0 [facility] Comment on above: Order Comment: Speci men Type: BLOOD SPECIMENOrdering Facility: [facility] Address: [address] Performed By: #### 5 8410-2 ####[facility] [id number] [place] [address] [place] Nucleated RBC (Bld) [#/Vol] 10*3/uL Normal <0.01 [facility] Comment on above: Order Comment: Speci men Type: BLOOD SPECIMENOrdering Facility: [facility] Address: [address] Performed By: #### 5 8410-2 ####[facility] [id number] [place] [address] [place] Platelet mean volume (Bld) [Entitic vol] 12.5 fL Normal 9.0-12.7 [facility] Comment on above: Order Comment: Speci men Type: BLOOD SPECIMENOrdering Facility: [facility] Address: [address] [place], [place] [address] Performed By: #### 5 8410-2 ####[facility] LABCLIA [id number] [place] [address] [place] Platelets (Bld) [#/Vol] 115 10*3/uL Low 150-400 [facility] Comment on above: Order Comment: Speci men Type: BLOOD SPECIMENOrdering Facility: [facility] Address: [address] [place] [address] Performed By: #### 5 8410-2 ####[facility] LABIA [id number] [place] [address] [place] RBC (Bld) [#/Vol] 4.11 10*6/uL Low 4.20-6.00 [facility] Comment on above: Order Comment: Speci men Type: BLOOD SPECIMENOrdering Facility: [facility] Address: [address] [place] [address] Performed By: #### 5 8410-2 ####[facility] LABIA [id number] [place] [address] [place] WBC (Bld) [#/Vol] 2.29 10*3/uL Low 3.70-11.00 [facility] Comment on above: Order Comment: Speci men Type: BLOOD SPECIMENOrdering Facility: [facility] Address: [address] [place] [address] Performed By: #### 5 8410-2 ####[facility] LABIA [id number] [place] [address] [place] CK SerPl-cCncon 11-22-2022 CK [Catalytic activity/Vol] 27 U/L Low 51-298 [facility] Comment on above: Order Comment: Speci men Type: BLOOD SPECIMENOrdering Facility: [facility] Address: [address] [place] [address] Performed By: #### 1 9123-9, 14434-1, 2157-6, 2777-1 ####[facility] LABCLIA [id number] [place] [id number] [place] Comprehensive metabolic 2000 panelon 11-22-2022 Albumin [Mass/Vol] 3.4 g/dL Low 3.9-4.9 [facility] Comment on above: Order Comment: Speci men Type: BLOOD SPECIMENOrdering Facility: [facility] Address: [address] [place] [address] Performed By: #### 1 9123-9, 62489-4, 2157-03, 2776-10 ####[facility] LABIA [id number] [place] [address] [place] ALP [Catalytic activity/Vol] 79 U/L Normal 38-113 [facility] Comment on above: Order Comment: Speci men Type: BLOOD SPECIMENOrdering Facility: [facility] Address: [address] [place] [address] Performed By: #### 1 9123-9, 61846-1, 2157-03, 2776-10 ####[facility] LABIA [id number] [place] [address] [place] ALT [Catalytic activity/Vol] U/L Low 10-54 [facility] Comment on above: Order Comment: Speci men Type: BLOOD SPECIMENOrdering Facility: [facility] Address: [address] [place] [address] Result Comment: Resu lt rechecked. Performed By: #### 1 9123-9, 38642-8, 2157-03, 2776-10 ####[facility] LABIA [id number] [place] [address] [place] Anion gap [Moles/Vol] 10 mmol/L Normal 9-18 [facility] Comment on above: Order Comment: Speci men Type: BLOOD SPECIMENOrdering Facility: [facility] Address: [address] [place] [address] Performed By: #### 1 9123-9, 08796-8, 2157-03, 2776-10 ####[facility] LABCLIA [id number] [place] [address] [place] AST [Catalytic activity/Vol] 11 U/L Low 14-40 [facility] Comment on above: Order Comment: Speci men Type: BLOOD SPECIMENOrdering Facility: [facility] Address: [address] [place] [address] Performed By: #### 1 9123-9, 37210-9, 2157-03, 2776-10 ####[facility] LABIA [id number] [place] [address] [place] Bilirubin [Mass/Vol] mg/dL Low 0.2-1.3 [facility] Comment on above: Order Comment: Speci men Type: BLOOD SPECIMENOrdering Facility: [facility] Address: [address] [place] [address] Performed By: #### 1 9123-9, 30796-0, 2157-03, 2776-10 ####[facility] LABIA [id number] [place] [address] [place] Calcium [Mass/Vol] 8.7 mg/dL Normal 8.5-10.2 [facility] Comment on above: Order Comment: Speci men Type: BLOOD SPECIMENOrdering Facility: [facility] Address: [address] [place], [place] [address] Performed By: #### 1 9123-9, 89737-2, 2157-03, 2776-10 ####[facility] LABIA [id number] [place] [address] [place] Chloride [Moles/Vol] 109 mmol/L High 97-105 [facility] Comment on above: Order Comment: Speci men Type: BLOOD SPECIMENOrdering Facility: [facility] Address: [address] [place] [address] Performed By: #### 1 9123-9, 52325-1, 2157-03, 2776-10 ####[facility] LABCLIA [id number] [place] [address] [place] CO2 [Moles/Vol] 23 mmol/L Normal 22-30 [facility] Comment on above: Order Comment: Speci men Type: BLOOD SPECIMENOrdering Facility: [facility] Address: [address] [place] [address] Performed By: #### 1 9123-9, 63822-6, 2157-03, 2776-10 ####[facility] LABIA [id number] [place] [address] [place] Creatinine [Mass/Vol] 0.95 mg/dL Normal 0.73-1.22 [facility] Comment on above: Order Comment: Speci men Type: BLOOD SPECIMENOrdering Facility: [facility] Address: [address] [place] [address] Performed By: #### 1 9123-9, 44557-8, 2157-03, 2776-10 ####[facility] LABIA [id number] [place] [address] [place] ESTIMATED GLOMERULAR FILTRATION RATE 89 mL/min/1.73m??? Normal >=60 [facility] Comment on above: Order Comment: Speci men Type: BLOOD SPECIMENOrdering Facility: [facility] Address: [address] [place] [address] Result Comment: Karina mated Glomerular Filtration Rate [...] actual GFR. Performed By: #### 1 9123-9, 20697-5, 2157-03, 2776-10 ####[facility] LABCLIA [id number] [place] [address] [place] Glucose [Mass/Vol] 101 mg/dL High 74-99 [facility] Comment on above: Order Comment: Speci men Type: BLOOD SPECIMENOrdering Facility: [facility] Address: [address] [place], [place] [address] Result Comment: The [place] [employer] (ADA) provides guidance for cutoff [...] Standards of Medical Care in Diabetes 2016, [place] [employer]. Diabetes Care. 2016.39(Suppl 1). Performed By: #### 1 9123-9, 03476-1, 7-, 7- ####[facility] LABCLIA [id number] [place] [address] [place] Potassium [Moles/Vol] 3.9 mmol/L Normal 3.7-5.1 [facility] Comment on above: Order Comment: Speci men Type: BLOOD SPECIMENOrdering Facility: [facility] Address: [address] [place] [address] Performed By: #### 1 9123-9, 26758-1, 7-, 2777- ####[facility] LABIA [id number] [place] [address] [place] Protein [Mass/Vol] 5.4 g/dL Low 6.3-8.0 [facility] Comment on above: Order Comment: Speci men Type: BLOOD SPECIMENOrdering Facility: [facility] Address: [address] [place] [address] Performed By: #### 1 9123-9, 08692-0, 2157-03, 2776-10 ####[facility] LABCLIA [id number] [place] [address] [place] Sodium [Moles/Vol] 142 mmol/L Normal 136-144 [facility] Comment on above: Order Comment: Speci men Type: BLOOD SPECIMENOrdering Facility: [facility] Address: [address] [place] [address] Performed By: #### 1 9123-9, 68633-1, 2157-03, 2776-10 ####[facility] LABIA [id number] [place] [address] [place] Urea nitrogen [Mass/Vol] 19 mg/dL Normal 9-24 [facility] Comment on above: Order Comment: Speci men Type: BLOOD SPECIMENOrdering Facility: [facility] Address: [address] [place] [address] Performed By: #### 1 9123-9, 80067-9, 2157-03, 2776-10 ####[facility] LABIA [id number] [place] [address] [place] Magnesium SerPl-mCncon 11-22 Magnesium [Mass/Vol] 2.2 mg/dL Normal 1.7-2.3 [facility] Comment on above: Order Comment: Speci men Type: BLOOD SPECIMENOrdering Facility: [facility] Address: [address] [place] [address] Performed By: #### 1 9123-9, 10453-1, 2157-03, 2776-10 ####[facility] LABIA [id number] [place] [address] [place] PT panel Coag (PPP)on 2022 INR Coag (PPP) [Relative time] 1.0 {INR} Normal 0.9-1.3 [facility] Comment on above: Order Comment: Speci men Type: BLOOD SPECIMENOrdering Facility: [facility] Address: [address] [place] [address] Result Comment: Bouchra min K Antagonist (VKA) Therapeutic Range: INR 2 to 3 (Target INR of 2.5)Note: For patients treated with VKA drugs, such as warfarin, the [employer] 2012 Guideline recommends [...] al. Chest 2012, 141:7S-47SNishimura RA, et al. [facility] 2017, 70: 252-289 Performed By: #### 3 4528-0 ####[facility] [id number] [place] [address] [place] PT Coag (PPP) [Time] 10.1 s Normal 9.7-13.0 [facility] Comment on above: Order Comment: Speci joseline Type: BLOOD SPECIMENOrdering Facility: [facility] Address: [address] [place] [address] Performed By: #### 3 4528-0 ####[facility] [id number] [place] [address] [place] Phosphate SerPl-mCncon 11-22 Phosphate [Mass/Vol] 3.5 mg/dL Normal 2.7-4.8 [facility] Comment on above: Order Comment: Princessi joseline Type: BLOOD SPECIMENOrdering Facility: [facility] Address: [address] [place] [address] Performed By: #### 1 9123-9, 38622-8, 2157-6, 2777-1 ####[facility] LABCLIA [id number] [place] [address] [place] THERAPY NTon 11-22-2022 THERAPY NT Normal [facility] ALLIED HEALTHon 11-21-2022 ALLIED HEALTH Normal [facility] ALLIED HEALTH Normal [facility] CONSULTon 11-21-2022 CONSULT Normal [facility] CONSULT PROGon 11-21-2022 CONSULT PROG Normal [facility] NUTRITIONon 11-21-2022 NUTRITION Normal [facility] THERAPY NTon 11-21-2022 THERAPY NT Normal [facility] 25(OH)D3 SerPl-mCncon 2022 25-hydroxyvitamin D3 [Mass/Vol] 15.0 ng/mL Low 31.0-80.0 [facility] Comment on above: Order Comment: Speci men Type: BLOOD SPECIMENOrdering Facility: [facility] Address: [address] [address] Result Comment: Clas sification of 25 [place] Vitamin D status:Deficiency/Insufficiency: < or = 30 ng/ml.Sufficiency/Optimal Levels: 31-80 ng/mLToxicity: > 100 ng/mL.Test performed by chemiluminescent immunoassay. Performed By: #### 1 989-3 ####[facility] LABIA [id number] [place] [address] [place] CBC W Auto Differential pane l (Bld)on 11-20-2022 Basophils (Bld) [#/Vol] 10*3/uL Normal <0.11 [facility] Comment on above: Order Comment: Speci men Type: BLOOD SPECIMENOrdering Facility: [facility] Address: [address] [place] [address] Performed By: #### 5 8410-2, 79831-4, 20226-7 ####[facility] LABIA [id number] [place] [address] [place] Basophils/100 WBC (Bld) 0.2 % Normal [facility] Comment on above: Order Comment: Speci men Type: BLOOD SPECIMENOrdering Facility: [facility] Address: [address] [address] Performed By: #### 5 8410-2, 30768-5, 97272-6 ####[facility] LABCLIA [id number] [place] [address] [place] Eosinophils (Bld) [#/Vol] 0.08 10*3/uL Normal <0.46 [facility] Comment on above: Order Comment: Speci men Type: BLOOD SPECIMENOrdering Facility: [facility] Address: [address] [place] [address] Performed By: #### 5 8410-2, 01534-8, 87887-7 ####[facility] LABCLIA [id number] [place] [address] [place] Eosinophils/100 WBC (Bld) 1.8 % Normal [facility] Comment on above: Order Comment: Speci men Type: BLOOD SPECIMENOrdering Facility: [facility] Address: [address] [place] [address] Performed By: #### 5 8410-2, 16128-0, 21277-2 ####[facility] LABCLIA [id number] [place] [address] [place] Immature granulocytes (Bld) [#/Vol] 0.03 10*3/uL Normal <0.10 [facility] Comment on above: Order Comment: Speci men Type: BLOOD SPECIMENOrdering Facility: [facility] Address: [address] Performed By: #### 5 8410-2, 38665-6, 04071-4 ####[facility] LABCLIA [id number] [place] [address] [place] Immature granulocytes/100 WBC (Bld) 0.7 % Normal [facility] Comment on above: Order Comment: Speci men Type: BLOOD SPECIMENOrdering Facility: [facility] Address: [address] Performed By: #### 5 8410-2, 59080-6, 22880-3 ####[facility] LABCLIA [id number] [place] [address] [place] Lymphocytes (Bld) [#/Vol] 0.74 10*3/uL Low 1.00-4.00 [facility] Comment on above: Order Comment: Speci men Type: BLOOD SPECIMENOrdering Facility: [facility] Address: [address] Performed By: #### 5 8410-2, 27276-8, 55122-1 ####[facility] LABCLIA [id number] [place] [address] [place] Lymphocytes/100 WBC (Bld) 16.4 % Normal [facility] Comment on above: Order Comment: Speci men Type: BLOOD SPECIMENOrdering Facility: [facility] Address: [address] [place], [place] [address] Performed By: #### 5 8410-2, 58398-9, 86185-6 ####[facility] LABCLIA [id number] [place] [address] [place] Monocytes (Bld) [#/Vol] 0.53 10*3/uL Normal <0.87 [facility] Comment on above: Order Comment: Speci men Type: BLOOD SPECIMENOrdering Facility: [facility] Address: [address] Performed By: #### 5 8410-2, 46178-7, 25407-1 ####[facility] LABCLIA [id number] [address] [place] Monocytes/100 WBC (Bld) 11.8 % Normal [facility] Comment on above: Order Comment: Speci men Type: BLOOD SPECIMENOrdering Facility: [facility] Address: [address] [place], [place] [address] Performed By: #### 5 8410-2, 37711-3, 52200-6 ####[facility] LABCLIA [id number] [place] [address] [place] Neutrophils (Bld) [#/Vol] 3.11 10*3/uL Normal 1.45-7.50 [facility] Comment on above: Order Comment: Speci men Type: BLOOD SPECIMENOrdering Facility: [facility] Address: [address] [place] [address] Performed By: #### 5 8410-2, 45188-5, 85693-8 ####[facility] LABIA [id number] [place] [address] [place] Neutrophils/100 WBC (Bld) 69.1 % Normal [facility] Comment on above: Order Comment: Speci men Type: BLOOD SPECIMENOrdering Facility: [facility] Address: [address] [place] [address] Performed By: #### 5 8410-2, 43475-6, 30006-3 ####[facility] LABIA [id number] [place] [address] [place] CBC panel Auto (Bld)on 11-20 Erythrocyte distribution width (RBC) [Ratio] 15.9 % High 11.5-15.0 [facility] Comment on above: Order Comment: Speci men Type: BLOOD SPECIMENOrdering Facility: [facility] Address: [address] [place], [place] [address] Performed By: #### 5 8410-2, 40266-4, 63706-5 ####[facility] LABIA [id number] [place] [address] [place] Hematocrit (Bld) [Volume fraction] 39.8 % Normal 39.0-51.0 [facility] Comment on above: Order Comment: Speci men Type: BLOOD SPECIMENOrdering Facility: [facility] Address: [address] [place] [address] Performed By: #### 5 8410-2, 12012-4, 56021-0 ####[facility] LABIA [id number] [place] [address] [place] Hemoglobin (Bld) [Mass/Vol] 12.5 g/dL Low 13.0-17.0 [facility] Comment on above: Order Comment: Speci men Type: BLOOD SPECIMENOrdering Facility: [facility] Address: [address] [place], [place] [address] Performed By: #### 5 8410-2, 71681-7, 93831-9 ####[facility] LABIA [id number] [place] [address] [place] MCH (RBC) [Entitic mass] 27.9 pg Normal 26.0-34.0 [facility] Comment on above: Order Comment: Speci men Type: BLOOD SPECIMENOrdering Facility: [facility] Address: [address] [place] [address] Performed By: #### 5 8410-2, 40791-2, 16111-3 ####[facility] [id number] [place] [address] [place] MCHC (RBC) [Mass/Vol] 31.4 g/dL Normal 30.5-36.0 [facility] Comment on above: Order Comment: Speci men Type: BLOOD SPECIMENOrdering Facility: [facility] Address: [address] [place] [address] Performed By: #### 5 8410-2, 22122-9, 30551-9 ####[facility] LABIA [id number] [address] [place] MCV (RBC) [Entitic vol] 88.8 fL Normal 80.0-100.0 [facility] Comment on above: Order Comment: Speci men Type: BLOOD SPECIMENOrdering Facility: [facility] Address: [address] [place], [place] [id number] Performed By: #### 5 8410-2, 28165-7, 42341-3 ####[facility]IA [id number] [place] [address] [place] Nucleated RBC (Bld) [#/Vol] 10*3/uL Normal <0.01 [facility] Comment on above: Order Comment: Speci men Type: BLOOD SPECIMENOrdering Facility: [facility] Address: [address] [place] [address] Performed By: #### 5 8410-2, 85298-4, 21912-3 ####[facility] [id number] [place] [address] [place] Platelet mean volume (Bld) [Entitic vol] 11.8 fL Normal 9.0-12.7 [facility] Comment on above: Order Comment: Speci men Type: BLOOD SPECIMENOrdering Facility: [facility] Address: [address] [place] [address] Performed By: #### 5 8410-2, 06470-7, 13182-5 ####[facility] [id number] [place] [address] [place] Platelets (Bld) [#/Vol] 138 10*3/uL Low 150-400 [facility] Comment on above: Order Comment: Speci men Type: BLOOD SPECIMENOrdering Facility: [facility] Address: [address] [place], [place] [address] Result Comment: No c lot detected.Results checked and verified. Performed By: #### 5 8410-2, 80497-9, 24755-9 ####[facility] LABIA [id number] [place] [address] [place] RBC (Bld) [#/Vol] 4.48 10*6/uL Normal 4.20-6.00 [facility] Comment on above: Order Comment: Speci men Type: BLOOD SPECIMENOrdering Facility: [facility] Address: [address] [place], [place] [address] Performed By: #### 5 8410-2, 43525-6, 71741-0 ####[facility] LABCLIA [id number] [address] [place] WBC (Bld) [#/Vol] 4.53 10*3/uL Normal 3.70-11.00 [facility] Comment on above: Order Comment: Speci men Type: BLOOD SPECIMENOrdering Facility: [facility] Address: [address] [place], [place] [address] Performed By: #### 5 8410-2, 84498-1, 48504-9 ####[facility] LABCLIA [id number] [address] OF [facility] CONSULTon 11-20-2022 CONSULT Normal [facility] Calcium.ionized [Moles/Vol]o n 11-20-2022 Calcium.ionized (Bld) [Mass/Vol] 1.27 mmol/L Normal 1.08-1.30 [facility] Comment on above: Order Comment: Speci men Type: BLOOD SPECIMENOrdering Facility: [facility] Address: [address] [place], [place] [address] Performed By: #### 1 995-0 ####[facility] LABCLIA [id number] [address] OF [facility] Calcium.ionized adjusted to pH 7.4 (Bld) [Moles/Vol] 1.23 mmol/L Normal 1.08-1.30 [facility] Comment on above: Order Comment: Speci men Type: BLOOD SPECIMENOrdering Facility: [facility] Address: [address] [place], [place] [address] Performed By: #### 1 995-0 ####[facility] LABCLIA [id number] [address] OF [facility] Comprehensive metabolic 2000 panelon 11-20-2022 Albumin [Mass/Vol] 4.0 g/dL Normal 3.9-4.9 [facility] Comment on above: Order Comment: Speci men Type: BLOOD SPECIMENOrdering Facility: [facility] Address: [address] [place] [address] Performed By: #### 3 3959-8, 91014-5, ####[facility] LABCLIA [id number] [place] [address] [place] ALP [Catalytic activity/Vol] 90 U/L Normal 38-113 [facility] Comment on above: Order Comment: Speci men Type: BLOOD SPECIMENOrdering Facility: [facility] Address: [address] [place] [address] Performed By: #### 3 3959-8, , ####[facility] LABCLIA [id number] [place] [address] [place] ALT [Catalytic activity/Vol] 7 U/L Low 10-54 [facility] Comment on above: Order Comment: Speci men Type: BLOOD SPECIMENOrdering Facility: [facility] Address: [address] [place] [address] Performed By: #### 3 3959-8, , 90394-8 ####[facility] LABCLIA [id number] [place] [address] [place] Anion gap [Moles/Vol] 12 mmol/L Normal 9-18 [facility] Comment on above: Order Comment: Speci men Type: BLOOD SPECIMENOrdering Facility: [facility] Address: [address] [place] [address] Performed By: #### 3 3959-8, , 21691-4 ####[facility] LABCLIA [id number] [place] [address] [place] AST [Catalytic activity/Vol] 11 U/L Low 14-40 [facility] Comment on above: Order Comment: Speci men Type: BLOOD SPECIMENOrdering Facility: [facility] Address: [place] [address] Performed By: #### 3 3959-8, , ####[facility] LABCLIA [id number] [place] [address] [place] Bilirubin [Mass/Vol] 0.2 mg/dL Normal 0.2-1.3 [facility] Comment on above: Order Comment: Speci men Type: BLOOD SPECIMENOrdering Facility: [facility] Address: [address] [place] [address] Performed By: #### 3 3959-8, , ####[facility] LABCLIA [id number] [place] [address] [place] Calcium [Mass/Vol] 8.9 mg/dL Normal 8.5-10.2 [facility] Comment on above: Order Comment: Speci men Type: BLOOD SPECIMENOrdering Facility: [facility] Address: [address] [place], [place] [address] Performed By: #### 3 3959-8, , ####[facility] LABCLIA [id number] [place] [address] [place] Chloride [Moles/Vol] 110 mmol/L High 97-105 [facility] Comment on above: Order Comment: Speci men Type: BLOOD SPECIMENOrdering Facility: [facility] Address: [address] Performed By: #### 3 3959-8, , ####[facility] LABCLIA [id number] [place] [id number] [place] CO2 [Moles/Vol] 20 mmol/L Low 22-30 [facility] Comment on above: Order Comment: Speci men Type: BLOOD SPECIMENOrdering Facility: [facility] Address: [address] Performed By: #### 3 3959-8, , ####[facility] LABCLIA [id number] [place] [address] [place] Creatinine [Mass/Vol] 0.95 mg/dL Normal 0.73-1.22 [facility] Comment on above: Order Comment: Speci men Type: BLOOD SPECIMENOrdering Facility: [facility] Address: [address] [place] [address] Performed By: #### 3 3959-8, , ####[facility] LABCLIA [id number] [place] [address] [place] ESTIMATED GLOMERULAR FILTRATION RATE 89 mL/min/1.73m??? Normal >=60 [facility] Comment on above: Order Comment: Speci men Type: BLOOD SPECIMENOrdering Facility: [facility] Address: [address] [place] [address] Result Comment: Karina mated Glomerular Filtration Rate [...] GFR. Performed By: #### 3 3959-8, , ####[facility] LABCLIA [id number] [place] [address] [place] Glucose [Mass/Vol] 74 mg/dL Normal 74-99 [facility] Comment on above: Order Comment: Speci men Type: BLOOD SPECIMENOrdering Facility: [facility] Address: [address] [address] Result Comment: The [place] [employer] (ADA) provides guidance for cutoff [...] Standards of Medical Care in Diabetes 2016, [place] [employer]. Diabetes Care. 2016.39(Suppl 1). Performed By: #### 3 3959-8, , ####[facility] LABCLIA [id number] [place] [address] [place] Potassium [Moles/Vol] 4.2 mmol/L Normal 3.7-5.1 [facility] Comment on above: Order Comment: Speci men Type: BLOOD SPECIMENOrdering Facility: [facility] Address: [address] [place] [address] Performed By: #### 3 3959-8, , ####[facility] LABIA [id number] [place] [address] [place] Protein [Mass/Vol] 6.2 g/dL Low 6.3-8.0 [facility] Comment on above: Order Comment: Speci men Type: BLOOD SPECIMENOrdering Facility: [facility] Address: [address] [id number] Performed By: #### 3 3959-8, , ####[facility] LABIA [id number] [place] [address] [place] Sodium [Moles/Vol] 142 mmol/L Normal 136-144 [facility] Comment on above: Order Comment: Speci men Type: BLOOD SPECIMENOrdering Facility: [facility] Address: [address] [place], [place] [address] Performed By: #### 3 3959-8, 59820-1, 99235-1 ####[facility] LABCLIA [id number] [place] [address] [place] Urea nitrogen [Mass/Vol] 26 mg/dL High 9-24 [facility] Comment on above: Order Comment: Speci men Type: BLOOD SPECIMENOrdering Facility: [facility] Address: [address] [place] [address] Performed By: #### 3 3959-8, 97485-4, ####[facility] LABCLIA [id number] [place] [address] [place] [id number] 11-20-2022 ECG01 Normal [facility] ED PROV NOTEon 11-20-2022 ED PROV NOTE Normal [facility] ED PROV NOTE Normal [facility] HISTORY PHYSICALon HISTORY PHYSICAL Normal [facility] LIPID PANEL, NONFASTINGon Cholesterol [Mass/Vol] 135 mg/dL Normal <200 Cl [facility] Comment on above: Order Comment: Speci men Type: BLOOD SPECIMENOrdering Facility: [facility] Address: [address] [place] [address] Result Comment: <200 mg/dL, Desirable 200-239 mg/dL, Borderline high>239 mg/dL, High Performed By: #### L IPNF ####[facility] LABIA [id number] [place] [address] [place] HDL CHOLESTEROL, NF 35 mg/dL Low >39 [facility] Comment on above: Order Comment: Speci men Type: BLOOD SPECIMENOrdering Facility: [facility] Address: [address] [place] [address] Result Comment: 40-5 9 mg/dL, Acceptable>59 mg/dL, High: Negative risk factor for coronary heart disease<40 mg/dL, Low: Positive risk factor for coronary heart disease Performed By: #### L IPNF ####[facility] LABCLIA [id number] [address] LDL CHOLESTEROL, NF 76 mg/dL Normal <100 [facility] Comment on above: Order Comment: Chaz trevizo Type: BLOOD SPECIMENOrdering Facility: [facility] Address: [address] [place] [address] Result Comment: <100 mg/dL, Optimal 100-129 mg/dL, Near optimal/above optimal 130-159 mg/dL, Borderline high 160-189 mg/dL, High>189 mg/dL, Very highSecondary prevention optimal LDL Cholesterol levels are recommended to be < 70 mg/dL Performed By: #### L IPNF ####[facility] LABIA [id number] [address] LDL/HDL RATIO, NF 2.17 mg/dL Normal <2.54 [facility] Comment on above: Order Comment: Chaz trevizo Type: BLOOD SPECIMENOrdering Facility: [facility] Address: [address] [place] [address] Result Comment: Refe rence:1. National Cholesterol Education Program ATP III Guideline At-A-Glance Quick Desk Reference: National Heart, Lung, and Blood [place]. National Institutes of Health. 2001: NIH Publication No. 01-3305.2. An International Atherosclerosis Society position paper: global recommendations for the management of dyslipidemia: executive summary, Atherosclerosis. 2014: 232(2):410-413. Performed By: #### L IPNF ####[facility] LABIA [id number] [address] [place] NON HDL CHOL, NF 100 mg/dL Normal <130 [facility] Comment on above: Order Comment: Chaz trevizo Type: BLOOD SPECIMENOrdering Facility: [facility] Address: [address] [place] [address] Result Comment: <130 mg/dL, Optimal 130-159 mg/dL, Near optimal/above optimal 160-189 mg/dL, Borderline high 190-219 mg/dL, High>219 mg/dL, Very highSecondary prevention optimal non HDL Cholesterol levels are recommended to be <100 mg/dL Performed By: #### L IPNF ####[facility] LABCLIA [id number] [place] [address] [place] T CHOL/HDL RATIO NF 3.86 mg/dL Normal <5.10 [facility] Comment on above: Order Comment: Speci men Type: BLOOD SPECIMENOrdering Facility: [facility] Address: [address] [place] [address] Performed By: #### L IPNF ####[facility] LABIA [id number] [place] [address] [place] TRIGLYCERIDES, NF 118 mg/dL Normal <150 [facility] Comment on above: Order Comment: Speci men Type: BLOOD SPECIMENOrdering Facility: [facility] Address: [address] [place] [address] Result Comment: <150 mg/dL, Normal 150-199 mg/dL, Borderline high 200-499 mg/dL, High>499 mg/dL, Very high Performed By: #### L IPNF ####[facility] LABIA [id number] [place] [address] [place] VLDL CHOLESTEROL, NF 24 mg/dL Normal <30 [facility] Comment on above: Order Comment: Speci men Type: BLOOD SPECIMENOrdering Facility: [facility] Address: [address] [place] [address] Performed By: #### L IPNF ####[facility] LABIA [id number] [place] [address] [place] Magnesium SerPl-mCncon 11-20 Magnesium [Mass/Vol] 2.1 mg/dL Normal 1.7-2.3 [facility] Comment on above: Order Comment: Speci men Type: BLOOD SPECIMENOrdering Facility: [facility] Address: [address] [place], [place] [address] Performed By: #### 3 3959-8, 42179-1, 69873-0 ####[facility] LABCLIA [id number] [address] [place] Prealb SerPl-mCncon 11-20-19 Prealbumin [Mass/Vol] 25 mg/dL Normal 17-36 [facility] Comment on above: Order Comment: Speci men Type: BLOOD SPECIMENOrdering Facility: [facility] Address: [address] [address] Performed By: #### 1 4338-8 ####[facility] LABIA [id number] [address] [place] Procalcitonin SerPl-mCncon 0 11-20-2022 Procalcitonin [Mass/Vol] 0.10 ng/mL High <0.09 [facility] Comment on above: Order Comment: Speci men Type: BLOOD SPECIMENOrdering Facility: [facility] Address: [address] [place] [address] Result Comment: For a guided interpretation of test results, please visit the Change in Procalcitonin Calculator, [email or web address]. Performed By: #### 3 3959-8, 58688-2, 54697-0 ####[facility] LABIA [id number] [place] [address] [place] Retics #on 11-20-2022 Reticulocytes (Bld) [#/Vol] 0.09218 10*3/uL Normal 0.018-0.10 0 [facility] Comment on above: Order Comment: Speci men Type: BLOOD SPECIMENOrdering Facility: [facility] Address: [address] [place] [address] Performed By: #### 5 8410-2, 19242-5, 65807-2 ####[facility] LABCLIA [id number] [address] Reticulocytes (Bld) [#/Vol]o n 11-20-2022 Reticulocytes/100 RBC (Bld) 1.4 % Normal 0.4-2.0 [facility] Comment on above: Order Comment: Speci men Type: BLOOD SPECIMENOrdering Facility: [facility] Address: [address] [place] [address] Performed By: #### 5 8410-2, 13833-5, 03505-7 ####[facility] LABIA [id number] [address] [place] SARS-CoV-2 RNA Resp Ql KELLIE+p robeon 11-20-2022 SARS-CoV-2 (COVID-19) RNA KELLIE+probe Ql (Resp) COVID 19 RESULT: Detected The method used is RT-PCR or an equivalent NAAT method. Reference Range(the expected result in uninfected individuals): Not detected Normal [facility] Comment on above: Performed By: #### 9 4500-6 ####[facility] [id number] [address] [place] Urinalysis complete panel (U )on 11-20-2022 Bilirubin Ql (U) Negative Normal Negative [facility] Comment on above: Order Comment: Speci men Type: URINE SPECIMENOrdering Facility: [facility] Address: [address] [place] [address] Performed By: #### 2 4356-8 ####[facility] LABIA [id number] [address] [place] Clarity (Unsp spec) Clear Normal Clear [facility] Comment on above: Order Comment: Speci men Type: URINE SPECIMENOrdering Facility: [facility] Address: [address] [place] [address] Performed By: #### 2 4356-8 ####[facility] LABIA [id number] [address] [place] Color (U) Yellow Normal Yellow [facility] Comment on above: Order Comment: Speci men Type: URINE SPECIMENOrdering Facility: [facility] Address: [address] Performed By: #### 2 4356-8 ####[facility] LABCLIA [id number] [address] [place] Glucose Test strip (U) [Mass/Vol] Negative Normal Trace, Negative [facility] Comment on above: Order Comment: Speci men Type: URINE SPECIMENOrdering Facility: [facility] Address: [address] Performed By: #### 2 4356-8 ####[facility] LABCLIA [id number] [address] [place] Hemoglobin Ql (U) Negative Normal Negative, Trace [facility] Comment on above: Order Comment: Speci men Type: URINE SPECIMENOrdering Facility: [facility] Address: [address] Performed By: #### 2 4356-8 ####[facility] LABCLIA [id number] [address] [place] Ketones Ql (U) Trace Normal Trace, Negative [facility] Comment on above: Order Comment: Speci men Type: URINE SPECIMENOrdering Facility: [facility] Address: [address] Performed By: #### 2 4356-8 ####[facility] LABCLIA [id number] [place] [address] [place] Leukocyte esterase Test strip Ql (U) Negative Normal Negative, 25 Winter/mL [facility] Comment on above: Order Comment: Speci men Type: URINE SPECIMENOrdering Facility: [facility] Address: [address] Performed By: #### 2 4356-8 ####[facility] LABCLIA [id number] [place] [address] [place] Nitrite Ql (U) Negative Normal Negative [facility] Comment on above: Order Comment: Speci men Type: URINE SPECIMENOrdering Facility: [facility] Address: [address] [place] [address] Performed By: #### 2 4356-8 ####[facility] LABIA [id number] [place] [address] [place] pH (U) 5.0 [pH] Normal 5.0-8.0 [facility] Comment on above: Order Comment: Speci men Type: URINE SPECIMENOrdering Facility: [facility] Address: [address] [place] [address] Performed By: #### 2 4356-8 ####[facility] [id number] [place] [address] [place] Protein (U) [Mass/Vol] Trace Normal Trace , Negative [facility] Comment on above: Order Comment: Speci men Type: URINE SPECIMENOrdering Facility: [facility] Address: [address] [place] [address] Performed By: #### 2 4356-8 ####[facility] [id number] [place] [address] [place] RBC LM.HPF (Urine sed) [#/Area] 3-5 /HPF Abnormal 0-3 /HPF [facility] Comment on above: Order Comment: Speci men Type: URINE SPECIMENOrdering Facility: [facility] Address: [address] [place] [address] Performed By: #### 2 4356-8 ####[facility] LABIA [id number] [place] [address] [place] Specific gravity (U) [Rel density] 1.020 Normal 1.005-1.03 0 [facility] Comment on above: Order Comment: Speci men Type: URINE SPECIMENOrdering Facility: [facility] Address: [address] [address] Performed By: #### 2 4356-8 ####[facility] LABCLIA [id number] [place] [address] [place] Urobilinogen Ql (U) Negative Normal Negative [facility] Comment on above: Order Comment: Speci men Type: URINE SPECIMENOrdering Facility: [facility] Address: [address] [place] [address] Performed By: #### 2 4356-8 ####[facility] LABCLIA [id number] [place] [address] [place] WBC LM.HPF (Urine sed) [#/Area] 0-5 /HPF Normal 0-5 /HPF [facility] Comment on above: Order Comment: Speci men Type: URINE SPECIMENOrdering Facility: [facility] Address: [address] [place] [address] Performed By: #### 2 4356-8 ####[facility] LABCLIA [id number] [place] [address] [place] XR CHEST 1V FRONTAL PORTon 0 11-20-2022 XR CHEST 1V FRONTAL PORT Normal [facility] CBC AUTO DIFFon 11-09-2022 BASO # 0.0 103/ul Normal 0.0-0.1 [facility] Comment on above: Performed By: #### C BC #### [facility] [address] [address] [address] Bruce Nicholas Basophils/100 WBC (Bld) 0.1 % Critically low 0.2-2.0 [facility] Comment on above: Performed By: #### C BC #### [facility] [address] [address] [address] Bruce Nicholas EO # 0.0 103/ul Normal 0.0-0.7 [facility] Comment on above: Performed By: #### C BC #### [facility] [address] [address] [address] Bruce Nicholas Eosinophils/100 WBC (Bld) 0.0 % Critically low 0.9-7.0 [facility] Comment on above: Performed By: #### C BC #### [facility] [address] [place] [address] Dr. Bruce Nicholas Erythrocyte distribution width (RBC) [Ratio] 16.0 % Critically high 11.0-15.0 [facility] Comment on above: Performed By: #### C BC #### [facility] [address] [place] [address] Dr. Bruce Nicholas Hematocrit (Bld) [Volume fraction] 36.6 % Critically low 42.0-54.0 [facility] Comment on above: Performed By: #### C BC #### [facility] [address] [place] [address] Dr. Bruce Nicholas Hemoglobin (Bld) [Mass/Vol] 12.3 g/dL Critically low 14.0-18.0 [facility] Comment on above: Performed By: #### C BC #### [facility] [address] [place] [address] Dr. Bruce Nicholas IG # 0.06 10e3/ul Critically high 0.00-0.03 [facility] Comment on above: Performed By: #### C BC #### [facility] [address] [place] [address] Dr. Bruce Nicholas IG % 0.7 % Critically high 0.0-0.5 [facility] Comment on above: Performed By: #### C BC #### [facility] [address] [place] [address] Dr. Bruce Nicholas LYMPH # 1.0 103/ul Critically low 1.2-3.8 [facility] Comment on above: Performed By: #### C BC #### [facility] [address] [place] [address] Dr. Bruce Nicholas Lymphocytes/100 WBC (Bld) 11.8 % Critically low 20.5-60.0 [facility] Comment on above: Performed By: #### C BC #### [facility] [address] [address] [address] Bruce Nicholas MANUAL DIFF REQ NO Normal [facility] Comment on above: Performed By: #### C BC #### [facility] [address] [place] [address] Dr. Bruce Nicholas MCH (RBC) [Entitic mass] 27.3 pg Normal 25.9-34.0 [facility] Comment on above: Performed By: #### C BC #### [facility] [address] [place] [address] Dr. Bruce Nicholas MCHC (RBC) [Mass/Vol] 33.6 g/dL Normal 29.9-35.2 [facility] Comment on above: Performed By: #### C BC #### [facility] [address] [place] [address] Dr. Bruce Nicholas MCV (RBC) [Entitic vol] 81.2 fL Normal 80.0-94.0 [facility] Comment on above: Performed By: #### C BC #### [facility] [address] [place] [address] Dr. Bruce Nicholas MONO # 0.2 103/ul Critically low 0.3-0.8 [facility] Comment on above: Performed By: #### C BC #### [facility] [address] [place] [address] Dr. Bruce Nicholas Monocytes/100 WBC (Bld) 3.0 % Normal 1.7-12.0 [facility] Comment on above: Performed By: #### C BC #### [facility] [address] [place] [address] Dr. Bruce Nicholas NEUT # 6.8 103/ul Critically high 1.4-6.5 [facility] Comment on above: Performed By: #### C BC #### [facility] [address] [place] [address] Dr. Bruce Nicholas Neutrophils/100 WBC (Bld) 84.4 % Critically high 43.0-75.0 [facility] Comment on above: Performed By: #### C BC #### [facility] Laboratory [address] [address] [address] Bruce Nicholas Platelet mean volume (Bld) [Entitic vol] 11.6 fL Normal 9.5-13.5 [facility] Comment on above: Performed By: #### C BC #### [facility] [address] [address] [address] Bruce Nicholas PLT 206 103/ul Normal 150-450 [facility] Comment on above: Performed By: #### C BC #### [facility] [address] [address] [address] Bruce Nicholas RBC 4.51 106/ul Critically low 4.70-6.10 [facility] Comment on above: Performed By: #### C BC #### [facility] [address] [place] [address] Dr. Bruce Nicholas WBC 8.1 103/ul Normal 4.0-11.0 [facility] Comment on above: Performed By: #### C BC #### [facility] [address] [place] [address] Dr. Bruce Nicholas POINT OF CARE GLUCOSEon 10-20 Glucose [Mass/Vol] 134 mg/dL Critically high 74-106 [facility] Comment on above: Performed By: #### P OCGLUC #### [facility] [address] [place] [address] Dr. Bruce Nicholas PROF CHEM 8 (BAS METB)on Anion gap [Moles/Vol] 13.3 mmol/L Normal [facility] Comment on above: Performed By: #### P OCGLUC #### [facility] [address] [place] [address] Dr. Bruce Nicholas Calcium [Mass/Vol] 9.0 mg/dL Normal 8.5-10.1 [facility] Comment on above: Performed By: #### P OCGLUC #### [facility] [address] [place] [address] Dr. Bruce Nicholas Chloride [Moles/Vol] 105 mmol/L Normal 98-107 [facility] Comment on above: Performed By: #### P OCGLUC #### [facility] [address] [address] [address] Bruce Nicholas CO2 [Moles/Vol] 24.9 mmol/L Normal 21.0-32.0 [facility] Comment on above: Performed By: #### P OCGLUC #### [facility] [address] [address] [address] Bruce Nicholas Creatinine [Mass/Vol] 0.86 mg/dL Normal 0.70-1.30 [facility] Comment on above: Performed By: #### P OCGLUC #### [facility] [address] [address] [address] Bruce Nicholas EGFR-AF [place] >60 Normal >=60 [facility] Comment on above: Performed By: #### P OCGLUC #### [facility] [address] [address] [address] Bruce Nicholas EGFR-NON AF [place] >60 Normal >=60 [facility] Comment on above: Performed By: #### P OCGLUC #### [facility] [address] [address] [address] Bruce Nciholas Glucose [Mass/Vol] 127 mg/dL Critically high 74-106 [facility] Comment on above: Performed By: #### P OCGLUC #### [facility] [address] [address] [address] Bruce Nicholas Potassium [Moles/Vol] 4.2 mmol/L Normal 3.5-5.1 [facility] Comment on above: Performed By: #### P OCGLUC #### [facility] [address] [address] [address] Bruce Nicholas Sodium [Moles/Vol] 139 mmol/L Normal 136-145 [facility] Comment on above: Performed By: #### P OCGLUC #### [facility] [address] [address] [address] Bruce Nicholas Urea nitrogen [Mass/Vol] 30.0 mg/dL Critically high 7.0-18.0 [facility] Comment on above: Performed By: #### P OCGLUC #### [facility] [address] [place] [address] Dr. Bruce Nicholas Urea nitrogen/Creatinine [Mass ratio] 34.9 mg/mg Normal [facility] Comment on above: Performed By: #### P OCGLUC #### [facility] [address] [place] [address] Dr. Bruce Nicholas CBC AUTO DIFFon 11-08-2022 BASO # 0.0 103/ul Normal 0.0-0.1 [facility] Comment on above: Performed By: #### C VDTBH #### [facility] [address] [place] [address] Dr. Bruce Nicholas Basophils/100 WBC (Bld) 0.1 % Critically low 0.2-2.0 [facility] Comment on above: Performed By: #### C VDTBH #### [facility] [address] [place] [address] Dr. Bruce Nicholas EO # 0.0 103/ul Normal 0.0-0.7 [facility] Comment on above: Performed By: #### C VDTBH #### [facility] [address] [place] [address] Dr. Bruce Nicholas Eosinophils/100 WBC (Bld) 0.0 % Critically low 0.9-7.0 [facility] Comment on above: Performed By: #### C VDTBH #### [facility] [address] [place] [address] Dr. Bruce Nicholas Erythrocyte distribution width (RBC) [Ratio] 15.8 % Critically high 11.0-15.0 [facility] Comment on above: Performed By: #### C VDTBH #### [facility] [address] [place] [address] Dr. Bruce Nicholas Hematocrit (Bld) [Volume fraction] 33.4 % Critically low 42.0-54.0 [facility] Comment on above: Performed By: #### C VDTBH #### [facility] [address] [place] [address] Dr. Bruce Nicholas Hemoglobin (Bld) [Mass/Vol] 11.5 g/dL Critically low 14.0-18.0 [facility] Comment on above: Performed By: #### C VDTBH #### [facility] [address] [address] [address] Bruce Nicholas IG # 0.05 10e3/ul Critically high 0.00-0.03 [facility] Comment on above: Performed By: #### C VDTBH #### [facility] [address] [address] [address] Bruce Nicholas IG % 0.5 % Normal 0.0-0.5 [facility] Comment on above: Performed By: #### C VDTBH #### [facility] [address] [address] [address] Bruce Nicholas LYMPH # 0.9 103/ul Critically low 1.2-3.8 [facility] Comment on above: Performed By: #### C VDTBH #### [facility] [address] [place] [address] Dr. Bruce Nicholas Lymphocytes/100 WBC (Bld) 9.6 % Critically low 20.5-60.0 [facility] Comment on above: Performed By: #### C VDTBH #### [facility] [address] [address] [address] Bruce Nicholas MANUAL DIFF REQ NO Normal [facility] Comment on above: Performed By: #### C VDTBH #### [facility] [address] [address] [address] Bruce Nicholas MCH (RBC) [Entitic mass] 27.5 pg Normal 25.9-34.0 [facility] Comment on above: Performed By: #### C VDTBH #### [facility] [address] [address] [address] Bruce Nicholas MCHC (RBC) [Mass/Vol] 34.4 g/dL Normal 29.9-35.2 [facility] Comment on above: Performed By: #### C VDTBH #### [facility] [address] [address] [address] Bruce Nicholas MCV (RBC) [Entitic vol] 79.9 fL Critically low 80.0-94.0 [facility] Comment on above: Performed By: #### C VDTBH #### [facility] [address] [place] [address] Dr. Bruce Nicholas MONO # 0.3 103/ul Normal 0.3-0.8 [facility] Comment on above: Performed By: #### C VDTBH #### [facility] [address] [place] [address] Dr. Bruce Nicholas Monocytes/100 WBC (Bld) 3.3 % Normal 1.7-12.0 [facility] Comment on above: Performed By: #### C VDTBH #### [facility] [address] [place] [address] Dr. Bruce Nicholas NEUT # 8.3 103/ul Critically high 1.4-6.5 [facility] Comment on above: Performed By: #### C VDTBH #### [facility] [address] [place] [address] Dr. Bruce Nicholas Neutrophils/100 WBC (Bld) 86.5 % Critically high 43.0-75.0 [facility] Comment on above: Performed By: #### C VDTBH #### [facility] [address] [place] [address] Dr. Bruce Nicholas Platelet mean volume (Bld) [Entitic vol] 12.1 fL Normal 9.5-13.5 [facility] Comment on above: Performed By: #### C VDTBH #### [facility] [address] [place] [address] Dr. Bruce Nicholas PLT 205 103/ul Normal 150-450 [facility] Comment on above: Performed By: #### C VDTBH #### [facility] [address] [place] [address] Dr. Bruce Nicholas RBC 4.18 106/ul Critically low 4.70-6.10 [facility] Comment on above: Performed By: #### C VDTBH #### [facility] [address] [place] [address] Dr. Bruce Nicholas WBC 9.6 103/ul Normal 4.0-11.0 [facility] Comment on above: Performed By: #### C VDTBH #### [facility] [address] [address] [address] Bruce Nicholas POINT OF CARE GLUCOSEon 10-20 Glucose [Mass/Vol] 121 mg/dL Critically high 74-106 [facility] Comment on above: Performed By: #### C VDTBH #### [facility] [address] [address] [address] Bruce Nicholas Glucose [Mass/Vol] 126 mg/dL Critically high 74-106 [facility] Comment on above: Performed By: #### C BC #### [facility] [address] [place] [address] Dr. Bruce Nicholas Glucose [Mass/Vol] 164 mg/dL Critically high -106 [facility] Comment on above: Performed By: #### C BC #### [facility] [address] [place] [address] Dr. Bruce Nicholas PROF CHEM 8 (BAS METB)on Anion gap [Moles/Vol] 14.2 mmol/L Normal [facility] Comment on above: Performed By: #### P OCGLUC #### [facility] [address] [place] [address] Dr. Bruce Nicholas Calcium [Mass/Vol] 8.9 mg/dL Normal 8.5-10.1 [facility] Comment on above: Performed By: #### P OCGLUC #### [facility] [address] [place] [address] Dr. Bruce Nicholas Chloride [Moles/Vol] 107 mmol/L Normal 98-107 [facility] Comment on above: Performed By: #### P OCGLUC #### [facility] [address] [place] [address] Dr. Bruce Nicholas CO2 [Moles/Vol] 22.8 mmol/L Normal 21.0-32.0 [facility] Comment on above: Performed By: #### P OCGLUC #### [facility] [address] [place] [address] Dr. Bruce Nicholas Creatinine [Mass/Vol] 0.94 mg/dL Normal 0.70-1.30 [facility] Comment on above: Performed By: #### P OCGLUC #### [facility] [address] [address] [address] Bruce Nicholas EGFR-AF [place] >60 Normal >=60 [facility] Comment on above: Performed By: #### P OCGLUC #### [facility] [address] [address] [address] Bruce Nicholas EGFR-NON AF [place] >60 Normal >=60 [facility] Comment on above: Performed By: #### P OCGLUC #### [facility] [address] [address] [address] Bruce Nicholas Glucose [Mass/Vol] 128 mg/dL Critically high 74-106 [facility] Comment on above: Performed By: #### P OCGLUC #### [facility] [address] [address] [address] Bruce Nicholas Potassium [Moles/Vol] 4.0 mmol/L Normal 3.5-5.1 [facility] Comment on above: Performed By: #### P OCGLUC #### [facility] [address] [address] [address] Bruce Nicholas Sodium [Moles/Vol] 140 mmol/L Normal 136-145 [facility] Comment on above: Performed By: #### P OCGLUC #### [facility] [address] [address] [address] Bruce Nicholas Urea nitrogen [Mass/Vol] 33.0 mg/dL Critically high 7.0-18.0 [facility] Comment on above: Performed By: #### P OCGLUC #### [facility] [address] [place] [address] Dr. Bruce Nicholas Urea nitrogen/Creatinine [Mass ratio] 35.1 mg/mg Normal [facility] Comment on above: Performed By: #### P OCGLUC #### [facility] [address] [address] [address] Bruce Nicholas XR CHEST 2 Von [...] EN HUIZARH Date: 2022-11-08 13:38 Normal [facility] CBC AUTO DIFFon 11-07-2022 BASO # 0.0 103/ul Normal 0.0-0.1 [facility] Comment on above: Performed By: #### C BC #### [facility] [address] [place] [address] Dr. Bruce Nicholas Basophils/100 WBC (Bld) 0.0 % Critically low 0.2-2.0 [facility] Comment on above: Performed By: #### C BC #### [facility] [address] [place] [address] Dr. Bruce Nicholas EO # 0.0 103/ul Normal 0.0-0.7 [facility] Comment on above: Performed By: #### C BC #### [facility] [address] [address] [address] Bruce Nicholas Eosinophils/100 WBC (Bld) 0.0 % Critically low 0.9-7.0 [facility] Comment on above: Performed By: #### C BC #### [facility] [address] [place] [address] Dr. Bruce Nicholas Erythrocyte distribution width (RBC) [Ratio] 16.1 % Critically high 11.0-15.0 [facility] Comment on above: Performed By: #### C BC #### [facility] [address] [address] [address] Bruce Nicholas Hematocrit (Bld) [Volume fraction] 36.3 % Critically low 42.0-54.0 [facility] Comment on above: Performed By: #### C BC #### [facility] [address] [place] [address] Dr. Bruce Nicholas Hemoglobin (Bld) [Mass/Vol] 11.5 g/dL Critically low 14.0-18.0 [facility] Comment on above: Performed By: #### C BC #### [facility] [address] [place] [address] Dr. Bruce Nicholas IG # 0.07 10e3/ul Critically high 0.00-0.03 [facility] Comment on above: Performed By: #### C BC #### [facility] [address] [place] [address] Dr. Bruce Nicholas IG % 0.6 % Critically high 0.0-0.5 [facility] Comment on above: Performed By: #### C BC #### [facility] [address] [place] [address] Dr. Bruce Nicholas LYMPH # 0.9 103/ul Critically low 1.2-3.8 [facility] Comment on above: Performed By: #### C BC #### [facility] [address] [place] [address] Dr. Bruce Nicholas Lymphocytes/100 WBC (Bld) 7.2 % Critically low 20.5-60.0 [facility] Comment on above: Performed By: #### C BC #### [facility] [address] [place] [address] Dr. Bruce Nicholas MANUAL DIFF REQ NO Normal [facility] Comment on above: Performed By: #### C BC #### [facility] [address] [place] [address] Dr. Bruce Nicholas MCH (RBC) [Entitic mass] 27.7 pg Normal 25.9-34.0 [facility] Comment on above: Performed By: #### C BC #### [facility] [address] [address] [address] Bruce Nicholas MCHC (RBC) [Mass/Vol] 31.7 g/dL Normal 29.9-35.2 [facility] Comment on above: Performed By: #### C BC #### [facility] [address] [address] [address] Bruce Nicholas MCV (RBC) [Entitic vol] 87.5 fL Normal 80.0-94.0 [facility] Comment on above: Performed By: #### C BC #### [facility] [address] [address] [address] Bruce Nicholas MONO # 0.3 103/ul Normal 0.3-0.8 [facility] Comment on above: Performed By: #### C BC #### [facility] [address] [place] [address] Dr. Bruce Nicholas Monocytes/100 WBC (Bld) 2.9 % Normal 1.7-12.0 [facility] Comment on above: Performed By: #### C BC #### [facility] [address] [address] [address] Bruce Nicholas NEUT # 10.6 103/ul Critically high 1.4-6.5 [facility] Comment on above: Performed By: #### C BC #### [facility] [address] [place] [address] Dr. Bruce Nicholas Neutrophils/100 WBC (Bld) 89.3 % Critically high 43.0-75.0 [facility] Comment on above: Performed By: #### C BC #### [facility] [address] [address] [address] Bruce Nicholas Platelet mean volume (Bld) [Entitic vol] 12.4 fL Normal 9.5-13.5 [facility] Comment on above: Performed By: #### C BC #### [facility] [address] [address] [address] Bruce Nicholas PLT 195 103/ul Normal 150-450 [facility] Comment on above: Performed By: #### C BC #### [facility] [address] [address] [address] Bruce Nicholas RBC 4.15 106/ul Critically low 4.70-6.10 [facility] Comment on above: Performed By: #### C BC #### [facility] [address] [address] [address] Bruce Nicholas WBC 11.9 103/ul Critically high 4.0-11.0 [facility] Comment on above: Performed By: #### C BC #### [facility] [address] [address] [address] Bruce Nicholas POINT OF CARE GLUCOSEon 10-20 Glucose [Mass/Vol] 145 mg/dL Critically high 74-106 [facility] Comment on above: Performed By: #### P OCGLUC #### [facility] [address] [address] [address] Bruce Nicholas Glucose [Mass/Vol] 139 mg/dL Critically high 74-106 [facility] Comment on above: Performed By: #### C BC #### [facility] [address] [address] [address] Bruce Nicholas Glucose [Mass/Vol] 122 mg/dL Critically high 74-106 [facility] Comment on above: Performed By: #### P OCGLUC #### [facility] [address] [address] [address] Bruce Nicholas PROF CHEM 8 (BAS METB)on Anion gap [Moles/Vol] 14.8 mmol/L Normal [facility] Comment on above: Performed By: #### C BC #### [facility] [address] [address] [address] Bruce Nicholas Calcium [Mass/Vol] 9.0 mg/dL Normal 8.5-10.1 [facility] Comment on above: Performed By: #### C BC #### [facility] [address] [address] [address] Bruce Nicholas Chloride [Moles/Vol] 107 mmol/L Normal 98-107 [facility] Comment on above: Performed By: #### C BC #### [facility] [address] [address] [address] Bruce Nicholas CO2 [Moles/Vol] 21.3 mmol/L Normal 21.0-32.0 [facility] Comment on above: Performed By: #### C BC #### [facility] [address] [address] [address] Bruce Nicholas Creatinine [Mass/Vol] 1.11 mg/dL Normal 0.70-1.30 [facility] Comment on above: Performed By: #### C BC #### [facility] [address] [address] [address] Bruce Nicholas EGFR-AF [place] >60 Normal >=60 [facility] Comment on above: Performed By: #### C BC #### [facility] [address] [place] [address] Dr. Bruce Nicholas EGFR-NON AF [place] >60 Normal >=60 [facility] Comment on above: Performed By: #### C BC #### [facility] [address] [place] [address] Dr. Bruce Nicholas Glucose [Mass/Vol] 158 mg/dL Critically high 74-106 [facility] Comment on above: Performed By: #### C BC #### [facility] [address] [place] [address] Dr. Bruce Nicholas Potassium [Moles/Vol] 4.1 mmol/L Normal 3.5-5.1 [facility] Comment on above: Performed By: #### C BC #### [facility] [address] [address] [address] Bruce Nicholas Sodium [Moles/Vol] 139 mmol/L Normal 136-145 [facility] Comment on above: Performed By: #### C BC #### [facility] [address] [place] [address] Dr. Bruce Nicholas Urea nitrogen [Mass/Vol] 28.0 mg/dL Critically high 7.0-18.0 [facility] Comment on above: Performed By: #### C BC #### [facility] [address] [address] [address] Bruce Nicholas Urea nitrogen/Creatinine [Mass ratio] 25.2 mg/mg Normal [facility] Comment on above: Performed By: #### C BC #### [facility] [address] [place] [address] Dr. Bruce Nicholas CBC AUTO DIFFon 11-06-2022 BASO # 0.0 103/ul Normal 0.0-0.1 [facility] Comment on above: Performed By: #### C BC #### [facility] [address] [place] [address] Dr. Bruce Nicholas Basophils/100 WBC (Bld) 0.0 % Critically low 0.2-2.0 [facility] Comment on above: Performed By: #### C BC #### [facility] [address] [place] [address] Dr. Bruce Nicholas EO # 0.0 103/ul Normal 0.0-0.7 [facility] Comment on above: Performed By: #### C BC #### [facility] [address] [place] [address] Dr. Bruce Nicholas Eosinophils/100 WBC (Bld) 0.0 % Critically low 0.9-7.0 [facility] Comment on above: Performed By: #### C BC #### [facility] [address] [place] [address] Dr. Bruce Nicholas Erythrocyte distribution width (RBC) [Ratio] 15.8 % Critically high 11.0-15.0 [facility] Comment on above: Performed By: #### C BC #### [facility] [address] [place] [address] Dr. Bruce Nicholas Hematocrit (Bld) [Volume fraction] 37.1 % Critically low 42.0-54.0 [facility] Comment on above: Performed By: #### C BC #### [facility] [address] [place] [address] Dr. Bruce Nicholas Hemoglobin (Bld) [Mass/Vol] 11.7 g/dL Critically low 14.0-18.0 [facility] Comment on above: Performed By: #### C BC #### [facility] [address] [place] [address] Dr. Bruce Nicholas IG # 0.03 10e3/ul Normal 0.00-0.03 [facility] Comment on above: Performed By: #### C BC #### [facility] [address] [place] [address] Dr. Bruce Nicholas IG % 0.4 % Normal 0.0-0.5 [facility] Comment on above: Performed By: #### C BC #### [facility] [address] [place] [address] Dr. Bruce Nicholas LYMPH # 0.7 103/ul Critically low 1.2-3.8 [facility] Comment on above: Performed By: #### C BC #### [facility] [address] [place] [address] Dr. Bruce Nicholas Lymphocytes/100 WBC (Bld) 9.9 % Critically low 20.5-60.0 [facility] Comment on above: Performed By: #### C BC #### [facility] [address] [place] [address] Dr. Bruce Nicholas MANUAL DIFF REQ NO Normal [facility] Comment on above: Performed By: #### C BC #### [facility] [address] [place] [address] Dr. Bruce Nicholas MCH (RBC) [Entitic mass] 27.3 pg Normal 25.9-34.0 [facility] Comment on above: Performed By: #### C BC #### [facility] [address] [place] [address] Dr. Bruce Nicholas MCHC (RBC) [Mass/Vol] 31.5 g/dL Normal 29.9-35.2 [facility] Comment on above: Performed By: #### C BC #### [facility] [address] [place] [address] Dr. Bruce Nicholas MCV (RBC) [Entitic vol] 86.5 fL Normal 80.0-94.0 [facility] Comment on above: Performed By: #### C BC #### [facility] [address] [place] [address] Dr. Bruce Nicholas MONO # 0.1 103/ul Critically low 0.3-0.8 [facility] Comment on above: Performed By: #### C BC #### [facility] [address] [address] [address] Bruce Nicholsa Monocytes/100 WBC (Bld) 1.9 % Normal 1.7-12.0 [facility] Comment on above: Performed By: #### C BC #### [facility] [address] [address] [address] Bruce Nicholas NEUT # 6.0 103/ul Normal 1.4-6.5 [facility] Comment on above: Performed By: #### C BC #### [facility] [address] [place] [address] Dr. Bruce Nicholas Neutrophils/100 WBC (Bld) 87.8 % Critically high 43.0-75.0 [facility] Comment on above: Performed By: #### C BC #### [facility] [address] [place] [address] Dr. Bruce Nicholas Platelet mean volume (Bld) [Entitic vol] 12.4 fL Normal 9.5-13.5 [facility] Comment on above: Performed By: #### C BC #### [facility] [address] [place] [address] Dr. Bruce Nicholas PLT 186 103/ul Normal 150-450 [facility] Comment on above: Performed By: #### C BC #### [facility] [address] [place] [address] Dr. Bruce Nicholas RBC 4.29 106/ul Critically low 4.70-6.10 [facility] Comment on above: Performed By: #### C BC #### [facility] [address] [place] [address] Dr. Bruce Nicholas WBC 6.9 103/ul Normal 4.0-11.0 [facility] Comment on above: Performed By: #### C BC #### [facility] [address] [place] [address] Dr. Bruce Nicholas POINT OF CARE GLUCOSEon 10-19 Glucose [Mass/Vol] 139 mg/dL Critically high 74-106 [facility] Comment on above: Performed By: #### P OCGLUC #### [facility] [address] [place] [address] Dr. Bruce Nicholas Glucose [Mass/Vol] 129 mg/dL Critically high 74-106 [facility] Comment on above: Performed By: #### P OCGLUC #### [facility] [address] [place] [address] Dr. Bruce Nicholas Glucose [Mass/Vol] 128 mg/dL Critically high -106 [facility] Comment on above: Performed By: #### P OCGLUC #### [facility] [address] [place] [address] Dr. Bruce Nicholas PROF CHEM 8 (BAS METB)on Anion gap [Moles/Vol] 17.3 mmol/L Normal [facility] Comment on above: Performed By: #### C BC #### [facility] [address] [place] [address] Dr. Bruce Nicholas Calcium [Mass/Vol] 9.0 mg/dL Normal 8.5-10.1 [facility] Comment on above: Performed By: #### C BC #### [facility] [address] [place] [address] Dr. Bruce Nicholas Chloride [Moles/Vol] 107 mmol/L Normal 98-107 [facility] Comment on above: Performed By: #### C BC #### [facility] [address] [place] [address] Dr. Bruce Nicholas CO2 [Moles/Vol] 20.4 mmol/L Critically low 21.0-32.0 [facility] Comment on above: Performed By: #### C BC #### [facility] [address] [place] [address] Dr. Bruce Nicholas Creatinine [Mass/Vol] 1.12 mg/dL Normal 0.70-1.30 [facility] Comment on above: Performed By: #### C BC #### [facility] [address] [place] [address] Dr. Bruce Nicholas EGFR-AF [place] >60 Normal >=60 [facility] Comment on above: Performed By: #### C BC #### [facility] [address] [place] [address] Dr. Bruce Nicholas EGFR-NON AF [place] >60 Normal >=60 [facility] Comment on above: Performed By: #### C BC #### [facility] [address] [address] [address] Bruce Nicholas Glucose [Mass/Vol] 184 mg/dL Critically high 74-106 [facility] Comment on above: Performed By: #### C BC #### [facility] [address] [address] [address] Bruce Nicholas Potassium [Moles/Vol] 3.7 mmol/L Normal 3.5-5.1 [facility] Comment on above: Performed By: #### C BC #### [facility] [address] [place] [address] Dr. Bruce Nicholas Sodium [Moles/Vol] 141 mmol/L Normal 136-145 [facility] Comment on above: Performed By: #### C BC #### [facility] [address] [address] [address] Bruce Nicholas Urea nitrogen [Mass/Vol] 25.0 mg/dL Critically high 7.0-18.0 [facility] Comment on above: Performed By: #### C BC #### [facility] [address] [place] [address] Dr. Bruce Nicholas Urea nitrogen/Creatinine [Mass ratio] 22.3 mg/mg Normal [facility] Comment on above: Performed By: #### C BC #### [facility] [address] [address] [address] Bruce Nicholas BNPon 11-05-2022 Natriuretic peptide B (Bld) [Mass/Vol] 131.0 pg/mL Normal <=900.0 [facility] Comment on above: Performed By: #### C BC #### [facility] [address] [place] [address] Dr. Bruce Nicholas CARDIAC EAMON ADMITon 023 CK [Catalytic activity/Vol] 44 U/L Normal 39-308 [facility] Comment on above: Performed By: #### C BC #### [facility] [address] [place] [address] Dr. Bruce Nicholas CK.MB [Mass/Vol] 1.08 ng/mL Normal <=3.[address] [facility] Comment on above: Performed By: #### C BC #### [facility] [address] [place] [address] Dr. Bruce Nicholas HSTROP 5.2 pg/mL Normal 4.0-76.1 [facility] Comment on above: Result Comment: CUT- OFF POINTS HAVE BEEN ESTABLISHED BASED ON THE FOURTH UNIVERSAL DEFINITIONS OF MYOCARDIAL INFARCTION. THE UPPER REFERENCE LIMIT (URL) OF TROPONIN, DEFINED THE 99TH PERCENTILE OF cTnI DISTRIBUTION IN A REFERENCE POPULATION, HAS BEEN CONFIRMED THE DECISION THRESHOLD FOR AL DIAGNOSIS. Performed By: #### C BC #### [facility] [address] [place] [address] Dr. Bruce Nicholas DAVID 57 ng/mL Normal 16-96 [facility] Comment on above: Performed By: #### C BC #### [facility] [address] [place] [address] Dr. Bruce Nicholas CBC AUTO DIFFon 11-05-2022 BASO # 0.0 103/ul Normal 0.0-0.1 [facility] Comment on above: Performed By: #### C BC #### [facility] [address] [place] [address] Dr. Bruce Nicholas Basophils/100 WBC (Bld) 0.6 % Normal 0.2-2.0 [facility] Comment on above: Performed By: #### C BC #### [facility] [address] [place] [address] Dr. Bruce Nicholas EO # 0.1 103/ul Normal 0.0-0.7 [facility] Comment on above: Performed By: #### C BC #### [facility] [address] [place] [address] Dr. Bruce Nicholas Eosinophils/100 WBC (Bld) 1.3 % Normal 0.9-7.0 [facility] Comment on above: Performed By: #### C BC #### [facility] [address] [place] [address] Dr. Bruce Nicholas Erythrocyte distribution width (RBC) [Ratio] 15.4 % Critically high 11.0-15.0 [facility] Comment on above: Performed By: #### C BC #### [facility] [address] [place] [address] Dr. Bruce Nicholas Hematocrit (Bld) [Volume fraction] 44.9 % Normal 42.0-54.0 [facility] Comment on above: Performed By: #### C BC #### [facility] [address] [place] [address] Dr. Bruce Nicholas Hemoglobin (Bld) [Mass/Vol] 14.0 g/dL Normal 14.0-18.0 [facility] Comment on above: Performed By: #### C BC #### [facility] [address] [place] [address] Dr. Bruce Nicholas IG # 0.02 10e3/ul Normal 0.00-0.03 [facility] Comment on above: Performed By: #### C BC #### [facility] [address] [place] [address] Dr. Bruce Nicholas IG % 0.3 % Normal 0.0-0.5 [facility] Comment on above: Performed By: #### C BC #### [facility] [address] [place] [address] Dr. Bruce Nicholas LYMPH # 2.3 103/ul Normal 1.2-3.8 [facility] Comment on above: Performed By: #### C BC #### [facility] [address] [place] [address] Dr. Bruce Nicholas Lymphocytes/100 WBC (Bld) 31.7 % Normal 20.5-60.0 [facility] Comment on above: Performed By: #### C BC #### [facility] [address] [place] [address] Dr. Bruce Nicholas MANUAL DIFF REQ NO Normal [facility] Comment on above: Performed By: #### C BC #### [facility] [address] [place] [address] Dr. Bruce Nicholas MCH (RBC) [Entitic mass] 27.3 pg Normal 25.9-34.0 [facility] Comment on above: Performed By: #### C BC #### [facility] [address] [place] [address] Dr. Bruce Nicholas MCHC (RBC) [Mass/Vol] 31.2 g/dL Normal 29.9-35.2 [facility] Comment on above: Performed By: #### C BC #### [facility] [address] [place] [address] Dr. Bruce Nicholas MCV (RBC) [Entitic vol] 87.5 fL Normal 80.0-94.0 [facility] Comment on above: Performed By: #### C BC #### [facility] [address] [place] [address] Dr. Bruce Nicholas MONO # 0.5 103/ul Normal 0.3-0.8 [facility] Comment on above: Performed By: #### C BC #### [facility] [address] [place] [address] Dr. Bruce Nicholas Monocytes/100 WBC (Bld) 7.6 % Normal 1.7-12.0 [facility] Comment on above: Performed By: #### C BC #### [facility] [address] [place] [address] Dr. Bruce Nicholas NEUT # 4.2 103/ul Normal 1.4-6.5 [facility] Comment on above: Performed By: #### C BC #### [facility] [address] [place] [address] Dr. Bruce Nicholas Neutrophils/100 WBC (Bld) 58.5 % Normal 43.0-75.0 [facility] Comment on above: Performed By: #### C BC #### [facility] [address] [place] [address] Dr. Bruce Nicholas Platelet mean volume (Bld) [Entitic vol] 12.6 fL Normal 9.5-13.5 [facility] Comment on above: Performed By: #### C BC #### [facility] [address] [place] [address] Dr. Bruce Nicholas PLT 211 103/ul Normal 150-450 [facility] Comment on above: Performed By: #### C BC #### [facility] [address] [place] [address] Dr. Bruce Nicholas RBC 5.13 106/ul Normal 4.70-6.10 [facility] Comment on above: Performed By: #### C BC #### [facility] [address] [place] [address] Dr. Bruce Nicholas WBC 7.1 103/ul Normal 4.0-11.0 [facility] Comment on above: Performed By: #### C BC #### [facility] [address] [place] [address] Dr. Bruce Nicholas CULTURE BLOODon 11-05-2022 Microscopic examination of blood, culture Culture Observations: NO GROWTH AT 5 DAYS. Normal [facility] Comment on above: Performed By: #### C VDTBH #### [facility] [address] [place] [address] Dr. Bruce Nichloas Microscopic examination of blood, culture Culture Observations: NO GROWTH AT 5 DAYS. Normal [facility] Comment on above: Performed By: #### B LDCX1 #### [facility] [address] [place] [address] Dr. Bruce Nicholas Covid-19 PCR (CVDTB)on 10-19 SARS-CoV-2 (COVID-19) RNA KELLIE+probe Ql (Unsp spec) Not detected Normal NOT DETECTED [facility] Comment on above: Result Comment: When [...] for this test is supported by the [employer] of Health and Human Service's declaration that [...] used). Performed By: #### C VDTBH #### [facility] [address] [place] [address] Dr. Bruce Nicholas INFLUENZA A AND B AGon 11-05 [facility] SEE BELOW Normal [facility] Comment on above: Result Comment: Nega tive for Flu A protein angiten. Infection due to Flu A cannot be ruled out. Flu A angiten in the sample may be below the detection limit of the test. Performed By: #### C BC #### [facility] [address] [place] [address] Dr. Bruce Nicholas INFLUBNEG SEE BELOW Normal [facility] Comment on above: Result Comment: Nega tive for Flu B protein antigen. Infection due to Flu B cannot be ruled out. Flu B antigen in the sample may be below the detection limit of the test. Performed By: #### C BC #### [facility] [address] [place] [address] Dr. Bruce Nicholas INFLUENZA A AG Negative Normal NEGATIVE SEE COMMENT [facility] Comment on above: Performed By: #### C BC #### [facility] [address] [place] [address] Dr. Bruce Nicholas INFLUENZA B AG Negative Normal NEGATIVE SEE COMMENT [facility] Comment on above: Performed By: #### C BC #### [facility] [address] [place] [address] Dr. Bruce Nicholas POINT OF CARE GLUCOSEon 10-19 Glucose [Mass/Vol] 190 mg/dL Critically high 74-106 [facility] Comment on above: Performed By: #### P OCGLUC #### [facility] [address] [place] [address] Dr. Bruce Nicholas Glucose [Mass/Vol] 129 mg/dL Critically high 74-106 [facility] Comment on above: Performed By: #### C VDTBH #### [facility] [address] [address] [address] Bruce Nicholas Glucose [Mass/Vol] 110 mg/dL Critically high 74-106 [facility] Comment on above: Performed By: #### C BC #### [facility] [address] [place] [address] Dr. Bruce Nicholas PROF CHEM 8 (BAS METB)on Anion gap [Moles/Vol] 16.0 mmol/L Normal [facility] Comment on above: Performed By: #### C BC #### [facility] [address] [place] [address] Dr. Bruce Nicholas Calcium [Mass/Vol] 9.4 mg/dL Normal 8.5-10.1 [facility] Comment on above: Performed By: #### C BC #### [facility] [address] [place] [address] Dr. Bruce Nicholas Chloride [Moles/Vol] 106 mmol/L Normal 98-107 [facility] Comment on above: Performed By: #### C BC #### [facility] [address] [place] [address] Dr. Bruce Nicholas CO2 [Moles/Vol] 25.2 mmol/L Normal 21.0-32.0 [facility] Comment on above: Performed By: #### C BC #### [facility] [address] [place] [address] Dr. Bruce Nicholas Creatinine [Mass/Vol] 1.09 mg/dL Normal 0.70-1.30 [facility] Comment on above: Performed By: #### C BC #### [facility] [address] [place] [address] Dr. Bruce Nicholas EGFR-AF [place] >60 Normal >=60 [facility] Comment on above: Performed By: #### C BC #### [facility] [address] [place] [address] Dr. Bruce Nicholas EGFR-NON AF [place] >60 Normal >=60 [facility] Comment on above: Performed By: #### C BC #### [facility] [address] [address] [address] Bruce Nicholas Glucose [Mass/Vol] 107 mg/dL Critically high 74-106 [facility] Comment on above: Performed By: #### C BC #### [facility] [address] [address] [address] Bruce Nicholas Potassium [Moles/Vol] 3.2 mmol/L Critically low 3.5-5.1 [facility] Comment on above: Performed By: #### C BC #### [facility] [address] [address] [address] Bruce Nicholas Sodium [Moles/Vol] 144 mmol/L Normal 136-145 [facility] Comment on above: Performed By: #### C BC #### [facility] [address] [address] [address] Bruce Nicholas Urea nitrogen [Mass/Vol] 20.0 mg/dL Critically high 7.0-18.0 [facility] Comment on above: Performed By: #### C BC #### [facility] [address] [address] [address] Bruce Nicholas Urea nitrogen/Creatinine [Mass ratio] 18.3 mg/mg Normal [facility] Comment on above: Performed By: #### C BC #### [facility] [address] [address] [address] Bruce Nicholas XR CHEST 1 Von [...] by: LIZETH MCDONOUGH Date: 2022-11-05 08:[address] [facility] [address] LSPINE WO CONon 2 CT [...] by: DON MURRAY Date: 2022-10-09 13:29 Normal [facility] POINT OF CARE GLUCOSEon 09-19 Glucose [Mass/Vol] 81 mg/dL Normal 74-106 [facility] Comment on above: Performed By: #### C VDTB #### [facility] [address] [address] [address] Bruce Nicholas Glucose [Mass/Vol] 69 mg/dL Critically low 74-106 [facility] Comment on above: Performed By: #### C BC #### [facility] [address] [address] [address] Bruce Nicholas XR MYELOGRAM LSPINE EXPon [...] by: DON MURRAY Date: 2022-10-08 11:11 Normal [facility] COVID-19on 02-18-2022 SARS-CoV-2 (COVID-19) RNA KELLIE+probe Ql (Unsp spec) Not detected Normal NOT DETECTED [facility] Comment on above: Result Comment: Alejo art [...] authorized laboratories. Fact sheet for Healthcare Providers: https://www.fda.gov/media/158413/download Fact sheet for Patients: https://www.fda.gov/media/789609/download METHODOLOGY: Isothermal Nucleic Acid Amplification Performed By: #### C OVPC #### [facility] [address] [place] [address] COVID-19, Rapidon 02-18-2022 SARS-CoV-2 (COVID-19) RNA KELLIE+probe Ql (Unsp spec) Not detected NOT DETECTED [facility] Comment on above: Rapid NAAT: Negative [...] authorized laboratories. Fact sheet for Healthcare Providers: https://www.fda.gov/media/766436/download Fact sheet for Patients: https://www.fda.gov/media/239152/download METHODOLOGY: Isothermal Nucleic Acid Amplification Performed at [facility] [address] GLUCOSE POCon 02-18-2022 Glucose [Mass/Vol] 100 mg/dL Normal 70-108 [facility] Comment on above: Performed By: #### P OCGL #### [place] [address] Glucose [Mass/Vol] 107 mg/dL Normal 70-108 [facility] Comment on above: Performed By: #### P OCGL #### [place] [address] POCT glucoseon 02-18-2022 Glucose [Mass/Vol] 100 mg/dL 70 - 108 mg/dl [facility] Comment on above: Performed at [facility] [address] [place] [address] Glucose [Mass/Vol] 107 mg/dL 70 - 108 mg/dl [facility] Comment on above: Performed at [facility] [employer] [facility] [address] [place] [address] GLUCOSE POCon 02-17-2022 Glucose [Mass/Vol] 90 mg/dL Normal 70-108 [facility] Comment on above: Performed By: #### C BCND, PT, APTT, BMP, ANION, EGFR1 #### [place] [address] Glucose [Mass/Vol] 88 mg/dL Normal 70-108 [facility] Comment on above: Performed By: #### P OCGL #### [facility] [address] [place] [address] Glucose [Mass/Vol] 99 mg/dL Normal 70-108 [facility] Comment on above: Performed By: #### P OCGL #### [facility] [address] [place] [address] POCT glucoseon 02-17-2022 Glucose [Mass/Vol] 90 mg/dL 70 - 108 mg/dl [facility] Comment on above: Performed at [facility] [address] [place], [place] [id number] [place] [address] Glucose [Mass/Vol] 88 mg/dL 70 - 108 mg/dl [facility] Comment on above: Performed at [facility] [address] [place], [place] [id number] [place] [address] Glucose [Mass/Vol] 99 mg/dL 70 - 108 mg/dl [facility] Comment on above: Performed at [facility] [address] [place] [address] [facility] GLUCOSE POCon 02-16-2022 Glucose [Mass/Vol] 116 mg/dL High 70-108 [facility] Comment on above: Performed By: #### P OCGL ####[facility] [address] [place] [address] Glucose [Mass/Vol] 121 mg/dL High 70-108 [facility] Comment on above: Performed By: #### P OCGL #### [facility] [address] [place] [address] Glucose [Mass/Vol] 89 mg/dL Normal 70-108 [facility] Comment on above: Performed By: #### C BCND, PT, APTT, BMP, ANION, EGFR1 #### [facility] [address] [place] [address] Glucose [Mass/Vol] 95 mg/dL Normal 70-108 [facility] Comment on above: Performed By: #### C BCND, PT, APTT, BMP, ANION, EGFR1 #### [facility] [address] [place] [address] Glucose [Mass/Vol] 85 mg/dL Normal 70-108 [facility] Comment on above: Performed By: #### C BCND, PT, APTT, BMP, ANION, EGFR1 #### [facility] [address] [place] [address] POCT Glucoseon 02-16-2022 Glucose [Mass/Vol] 121 mg/dL High 70 - 108 mg/dl [facility] Comment on above: Performed at [facility] [employer] [facility] [address] [place] [address] Interpretation and review of laboratory results Abnormal [facility] POCT glucoseon 02-16-2022 Glucose [Mass/Vol] 116 mg/dL High 70 - 108 mg/dl [facility] Comment on above: Performed at [facility] [employer] [facility] [address] [place] [address] Interpretation and review of laboratory results Abnormal [facility] Glucose [Mass/Vol] 89 mg/dL 70 - 108 mg/dl [facility] Comment on above: Performed at [facility] [facility] [address] [place] [address] Glucose [Mass/Vol] 95 mg/dL 70 - 108 mg/dl [facility] Comment on above: Performed at [facility] [facility] [address] [place] [address] Glucose [Mass/Vol] 85 mg/dL 70 - 108 mg/dl [facility] Comment on above: Performed at [facility] [facility] [address] [place] [address] ANION GAPon 02-15-2022 Anion gap [Moles/Vol] 8.0 mmol/L Normal 8.0-16.0 [facility] Comment on above: Result Comment: ANIO N GAP = Sodium -(Chloride + CO2) Performed By: #### C BCND, BMP, ANION, EGFR1 ####[facility] [address] [place] [address] Anion Gapon 02-15-2022 Anion gap [Moles/Vol] 8.0 mmol/L 8.0 - 16.0 meq/L [facility] Comment on above: ANION GAP = Sodium - (Chloride + CO2) Performed at [facility] [address] [place] [address] BASIC METABOL PANELon 2021 Calcium [Mass/Vol] 8.1 mg/dL Low 8.5-10.5 [facility] Comment on above: Performed By: #### P OCGL #### [employer] [address] [place] [address] Chloride [Moles/Vol] 105 mmol/L Normal 98-111 [facility] Comment on above: Performed By: #### P OCGL #### [facility] [address] [place] [address] CO2 [Moles/Vol] 25 mmol/L Normal 23-33 [facility] Comment on above: Performed By: #### P OCGL #### [facility] [employer] [facility] [address] [place] [address] Creatinine [Mass/Vol] 1.0 mg/dL Normal 0.4-1.2 [facility] Comment on above: Performed By: #### P OCGL #### [facility] [employer] [address] [place] [address] Glucose [Mass/Vol] 101 mg/dL Normal 70-108 [facility] Comment on above: Performed By: #### P OCGL #### [facility] [employer] [address] [address] Potassium [Moles/Vol] 3.9 mmol/L Normal 3.5-5.2 [facility] Comment on above: Performed By: #### P OCGL #### [facility] [employer] [address] [address] Sodium [Moles/Vol] 138 mmol/L Normal 135-145 [facility] Comment on above: Performed By: #### P OCGL #### [facility] [employer] [address] [place] [address] Urea nitrogen [Mass/Vol] 19 mg/dL Normal 7-22 [facility] Comment on above: Performed By: #### P OCGL #### [facility] [address] [place] [address] Basic Metabolic Panelon 04-3 0-2021 Calcium [Mass/Vol] 8.1 mg/dL Low 8.5 - 10. 5 mg/dL [facility] Comment on above: Performed at [facility] [address] [place] [address] Chloride [Moles/Vol] 105 mmol/L 98 - 11 1 meq/L [facility] CO2 [Moles/Vol] 25 mmol/L 23 - 33 meq/L [facility] Creatinine [Mass/Vol] 1 mg/dL 0.4 - 1.2 mg/dL [facility] Glucose [Mass/Vol] 101 mg/dL 70 - 108 mg/dL [facility] Potassium [Moles/Vol] 3.9 mmol/L 3.5 - 5.2 meq/L [facility] Sodium [Moles/Vol] 138 mmol/L 135 - 145 meq/L [facility] Urea nitrogen (BldV) [Mass/Vol] 19 mg/dL 7 - 22 mg/dL [facility] CBCon 02-15-2022 Erythrocyte distribution width (RBC) [Ratio] 13.3 % 11.5 - 14.5 % [facility] Erythrocyte distribution width (RBC) [Ratio] 46.9 fL High 35.0 - 45.0 fL [facility] Hematocrit (Bld) [Volume fraction] 30.1 % Low 42.0 - 52.0 % [facility] Hemoglobin.gastrointes tinal spec 1 Ql (Stl) 9.5 Low [facility] Interpretation and review of laboratory results Abnormal [facility] MCH (RBC) [Entitic mass] 30.4 pg 26.0 - 33.0 pg [facility] MCHC (RBC) [Mass/Vol] 31.6 g/dL Low [facility] MCV (RBC) [Entitic vol] 96.2 fL High 80.0 - 94.0 fL [facility] Platelet mean volume (Bld) [Entitic vol] 11.7 fL 9.4 - 12.4 fL [facility] Comment on above: Performed at [facility] [address] [place] [address] Platelets (Bld) [#/Vol] 159 10*3/uL [facility] RBC (Bld) [#/Vol] 3.13 10*6/uL Low [facility] WBC (Bld) [#/Vol] 4.3 10*3/uL Low [facility] CBC NO DIFFERENTIALon 2021 Erythrocyte distribution width (RBC) [Ratio] 13.3 % Normal 11.5-14.5 [facility] Comment on above: Performed By: #### P OCGL #### [facility] [address] [place] [address] Hematocrit (Bld) [Volume fraction] 30.1 % Low 42.0-52.0 [facility] Comment on above: Performed By: #### P OCGL #### [address] [address] Hemoglobin (Bld) [Mass/Vol] 9.5 g/dL Low 14.0-18.0 [facility] Comment on above: Performed By: #### P OCGL #### [address] [address] MCH (RBC) [Entitic mass] 30.4 pg Normal 26.0-33.0 [facility] Comment on above: Performed By: #### P OCGL #### [address] [address] MCHC (RBC) [Mass/Vol] 31.6 g/dL Low 32.2-35.5 [facility] Comment on above: Performed By: #### P OCGL #### [address] [address] MCV (RBC) [Entitic vol] 96.2 fL High 80.0-94.0 [facility] Comment on above: Performed By: #### P OCGL #### [address] [address] PLATELET 159 thou/mm3 Normal 130-400 [facility] Comment on above: Performed By: #### P OCGL #### [address] [address] Platelet mean volume (Bld) [Entitic vol] 11.7 fL Normal 9.4-12.4 [facility] Comment on above: Performed By: #### P OCGL #### [address] [address] RBC 3.13 mill/mm3 Low 4.70-6.10 [facility] Comment on above: Performed By: #### P OCGL #### [address] [address] RDW-SD 46.9 fL High 35.0-45.0 [facility] Comment on above: Performed By: #### P OCGL #### [facility] [address] [place] [address] WBC 4.3 thou/mm3 Low 4.8-10.8 [facility] Comment on above: Performed By: #### P OCGL #### [employer] [facility] [employer] [facility] [address] [place] [address] GFR, ESTIMATEDon 02-15-2022 GFR/1.73 sq M.predicted MDRD (S/P/Bld) [Vol rate/Area] 75 mL/min/{1.73_m2} Abnormal [facility] Comment on above: Result Comment: Stag e [...] By: #### C BCND, BMP, ANION, EGFR1 ####[employer] [address] [place] [address] GLUCOSE POCon 02-15-2022 Glucose [Mass/Vol] 85 mg/dL Normal 70-108 [facility] Comment on above: Performed By: #### P OCGL #### [facility] [address] [place] [address] Glucose [Mass/Vol] 98 mg/dL Normal 70-108 [facility] Comment on above: Performed By: #### C BCND, PT, APTT, BMP, ANION, EGFR1 #### [facility] [address] [place] [address] Glucose [Mass/Vol] 101 mg/dL Normal 70-108 [facility] Comment on above: Performed By: #### P OCGL ####[employer] [address] [place] [address] Glucose [Mass/Vol] 89 mg/dL Normal 70-108 [facility] Comment on above: Performed By: #### P OCGL #### [place] [address] Glomerular Filtration Rate, Estimatedon 02-15-2022 GFR/1.73 sq M.predicted MDRD (S/P/Bld) [Vol rate/Area] 75 mL/min/{1.73_m2} Abnormal ml/min/1.7 3m2 [facility] Comment on above: Stage Description GF [...] Vol. 139 (2) pg 137-147. Performed at [facility] [address] [place] [address] No Panel Informationon 02-15 Interpretation and review of laboratory results Abnormal [facility] POCT glucoseon 02-15-2022 Glucose [Mass/Vol] 85 mg/dL 70 - 108 mg/dl [facility] Comment on above: Performed at [facility] [address] [place] [address] Glucose [Mass/Vol] 98 mg/dL 70 - 108 mg/dl [facility] Comment on above: Performed at [facility] [address] [place] [address] Glucose [Mass/Vol] 101 mg/dL 70 - 108 mg/dl [facility] Comment on above: Performed at [facility] [address] [place] [address] Glucose [Mass/Vol] 89 mg/dL 70 - 108 mg/dl [facility] Comment on above: Performed at [facility] [address] [place] [address] GLUCOSE POCon 02-14-2022 Glucose [Mass/Vol] 90 mg/dL Normal 70-108 [facility] Comment on above: Performed By: #### C BCND, PT, APTT, BMP, ANION, EGFR1 #### [facility] [place] [address] Glucose [Mass/Vol] 100 mg/dL Normal 70-108 [facility] Comment on above: Performed By: #### C BCND, PT, APTT, BMP, ANION, EGFR1 #### [facility] [address] [place] [address] Glucose [Mass/Vol] 86 mg/dL Normal 70-108 [facility] Comment on above: Performed By: #### C BCND, PT, APTT, BMP, ANION, EGFR1 #### [facility] [address] [place] [address] Glucose [Mass/Vol] 94 mg/dL Normal 70-108 [facility] Comment on above: Performed By: #### P OCGL ####[facility] [address] [place] [address] Glucose [Mass/Vol] 79 mg/dL Normal 70-108 [facility] Comment on above: Performed at [facility] [employer] [facility] [address] [place] [address] Performed By: #### P OCGL #### [address] [address] No Panel Informationon 02-14 [facility] POCT glucoseon 02-14-2022 Glucose [Mass/Vol] 90 mg/dL 70 - 108 mg/dl [facility] Comment on above: Performed at [facility] [address] [place] [id number] [place] [address] Glucose [Mass/Vol] 100 mg/dL 70 - 108 mg/dl [facility] Comment on above: Performed at [facility] [address] [place] [address] Glucose [Mass/Vol] 86 mg/dL 70 - 108 mg/dl [facility] Comment on above: Performed at [facility] [employer] [facility] [address] [place] [address] Glucose [Mass/Vol] 94 mg/dL 70 - 108 mg/dl [facility] Comment on above: Performed at [facility] [employer] [facility] [address] [place] [address] GLUCOSE POCon 02-13-2022 Glucose [Mass/Vol] 96 mg/dL Normal 70-108 [facility] Comment on above: Performed By: #### P OCGL #### [facility] [employer] [address] [address] Glucose [Mass/Vol] 85 mg/dL Normal 70-108 [facility] Comment on above: Performed By: #### C BCND, PT, APTT, BMP, ANION, EGFR1 #### [address] [address] Glucose [Mass/Vol] 95 mg/dL Normal 70-108 [facility] Comment on above: Performed By: #### C BCND, PT, APTT, BMP, ANION, EGFR1 #### [address] [address] Glucose [Mass/Vol] 82 mg/dL Normal 70-108 [facility] Comment on above: Performed By: #### C BCND, PT, APTT, BMP, ANION, EGFR1 #### [address] [address] POCT glucoseon 02-13-2022 Glucose [Mass/Vol] 96 mg/dL 70 - 108 mg/dl [facility] Comment on above: Performed at [facility] [address] [place] [address] Glucose [Mass/Vol] 85 mg/dL 70 - 108 mg/dl [facility] Comment on above: Performed at [facility] [address] [place] [address] Glucose [Mass/Vol] 95 mg/dL 70 - 108 mg/dl [facility] Comment on above: Performed at [facility] [address] [place] [address] Glucose [Mass/Vol] 82 mg/dL 70 - 108 mg/dl [facility] Comment on above: Performed at [facility] [address] [place] [address] ANION GAPon 02-12-2022 Anion gap [Moles/Vol] 9.0 mmol/L Normal 8.0-16.0 [facility] Comment on above: Result Comment: ANIO N GAP = Sodium -(Chloride + CO2) Performed By: #### P OCGL #### [address] [address] Anion Gapon 02-12-2022 Anion gap [Moles/Vol] 9.0 mmol/L 8.0 - 16.0 meq/L [facility] Comment on above: ANION GAP = Sodium - (Chloride + CO2) Performed at [facility] [address] [place] [address] BASIC METABOL PANELon 2021 Calcium [Mass/Vol] 8.2 mg/dL Low 8.5-10.5 [facility] Comment on above: Performed By: #### P OCGL #### [facility] [address] [place] [address] Chloride [Moles/Vol] 105 mmol/L Normal 98-111 [facility] Comment on above: Performed By: #### P OCGL #### [facility] [address] [place] [address] CO2 [Moles/Vol] 24 mmol/L Normal 23-33 [facility] Comment on above: Performed By: #### P OCGL #### [facility] [address] [place] [address] Creatinine [Mass/Vol] 0.9 mg/dL Normal 0.4-1.2 [facility] Comment on above: Performed By: #### P OCGL #### [facility] [address] [place] [address] Glucose [Mass/Vol] 66 mg/dL Low 70-108 [facility] Comment on above: Performed By: #### P OCGL #### [facility] [address] [place] [address] Potassium [Moles/Vol] 3.9 mmol/L Normal 3.5-5.2 [facility] Comment on above: Performed By: #### P OCGL #### [facility] [address] [place] [address] Sodium [Moles/Vol] 138 mmol/L Normal 135-145 [facility] Comment on above: Performed By: #### P OCGL #### [facility] [address] [place] [address] Urea nitrogen [Mass/Vol] 17 mg/dL Normal 7-22 [facility] Comment on above: Performed By: #### P OCGL #### [facility] [address] [place] [address] Basic Metabolic Panelon 01-18 Calcium [Mass/Vol] 8.2 mg/dL Low 8.5 - 10. 5 mg/dL [facility] Comment on above: Performed at [facility] [address] [place] [address] Chloride [Moles/Vol] 105 mmol/L 98 - 11 1 meq/L [facility] CO2 [Moles/Vol] 24 mmol/L 23 - 33 meq/L [facility] Creatinine [Mass/Vol] 0.9 mg/dL 0.4 - 1.2 mg/dL [facility] Glucose [Mass/Vol] 66 mg/dL Low 70 - 108 mg/dL [facility] Potassium [Moles/Vol] 3.9 mmol/L 3.5 - 5.2 meq/L [facility] Sodium [Moles/Vol] 138 mmol/L 135 - 145 meq/L [facility] Urea nitrogen (BldV) [Mass/Vol] 17 mg/dL 7 - 22 mg/dL [facility] CBCon 02-12-2022 Erythrocyte distribution width (RBC) [Ratio] 13.8 % 11.5 - 14.5 % [facility] Erythrocyte distribution width (RBC) [Ratio] 49.3 fL High 35.0 - 45.0 fL [facility] Hematocrit (Bld) [Volume fraction] 32.0 % Low 42.0 - 52.0 % [facility] Hemoglobin.gastrointes tinal spec 1 Ql (Stl) 9.8 Low [facility] Interpretation and review of laboratory results Abnormal [facility] MCH (RBC) [Entitic mass] 29.8 pg 26.0 - 33.0 pg [facility] MCHC (RBC) [Mass/Vol] 30.6 g/dL Low [facility] MCV (RBC) [Entitic vol] 97.3 fL High 80.0 - 94.0 fL [facility] Platelet mean volume (Bld) [Entitic vol] 12.3 fL 9.4 - 12.4 fL [facility] Comment on above: Performed at [facility] [address] [place] [address] Platelets (Bld) [#/Vol] 142 10*3/uL [facility] RBC (Bld) [#/Vol] 3.29 10*6/uL Low [facility] WBC (Bld) [#/Vol] 5.1 10*3/uL [facility] CBC NO DIFFERENTIALon 2021 Erythrocyte distribution width (RBC) [Ratio] 13.8 % Normal 11.5-14.5 [facility] Comment on above: Performed By: #### P OCGL #### [address] [address] Hematocrit (Bld) [Volume fraction] 32.0 % Low 42.0-52.0 [facility] Comment on above: Performed By: #### P OCGL #### [address] [address] Hemoglobin (Bld) [Mass/Vol] 9.8 g/dL Low 14.0-18.0 [facility] Comment on above: Performed By: #### P OCGL #### [address] [address] MCH (RBC) [Entitic mass] 29.8 pg Normal 26.0-33.0 [facility] Comment on above: Performed By: #### P OCGL #### [address] [address] MCHC (RBC) [Mass/Vol] 30.6 g/dL Low 32.2-35.5 [facility] Comment on above: Performed By: #### P OCGL #### [address] [address] MCV (RBC) [Entitic vol] 97.3 fL High 80.0-94.0 [facility] Comment on above: Performed By: #### P OCGL #### [address] [address] PLATELET 142 thou/mm3 Normal 130-400 [facility] Comment on above: Performed By: #### P OCGL #### [address] [address] Platelet mean volume (Bld) [Entitic vol] 12.3 fL Normal 9.4-12.4 [facility] Comment on above: Performed By: #### P OCGL #### [address] [address] RBC 3.29 mill/mm3 Low 4.70-6.10 [facility] Comment on above: Performed By: #### P OCGL #### [facility] [employer] [facility] [address] [place] [address] RDW-SD 49.3 fL High 35.0-45.0 [facility] Comment on above: Performed By: #### P OCGL #### [address] [address] WBC 5.1 thou/mm3 Normal 4.8-10.8 [facility] Comment on above: Performed By: #### P OCGL #### [address] [address] GFR, ESTIMATEDon 02-12-2022 GFR/1.73 sq M.predicted MDRD (S/P/Bld) [Vol rate/Area] 85 mL/min/{1.73_m2} Abnormal [facility] Comment on above: Result Comment: [employer] skyla [...] 137-147. Performed By: #### P OCGL #### [address] [address] GLUCOSE POCon 02-12-2022 Glucose [Mass/Vol] 95 mg/dL Normal 70-108 [facility] Comment on above: Performed By: #### P OCGL #### [address] [address] Glucose [Mass/Vol] 84 mg/dL Normal 70-108 [facility] Comment on above: Performed By: #### C BCND, PT, APTT, BMP, ANION, EGFR1 #### [address] [address] Glucose [Mass/Vol] 86 mg/dL Normal 70-108 [facility] Comment on above: Performed By: #### P OCGL ####[facility] [address] [place] [address] Glucose [Mass/Vol] 90 mg/dL Normal 70-108 [facility] Comment on above: Performed By: #### P OCGL ####[facility] [address] [place] [address] Glomerular Filtration Rate, Estimatedon 02-12-2022 GFR/1.73 sq M.predicted MDRD (S/P/Bld) [Vol rate/Area] 85 mL/min/{1.73_m2} Abnormal ml/min/1.7 3m2 [facility] Comment on above: Stage Description GF [...] Vol. 139 (2) pg 137-147. Performed at [facility] [address] [place] [address] No Panel Informationon 02-12 Interpretation and review of laboratory results Abnormal [facility] POCT glucoseon 02-12-2022 Glucose [Mass/Vol] 95 mg/dL 70 - 108 mg/dl [facility] Comment on above: Performed at [facility] [employer] [facility] [address] [place] [address] Glucose [Mass/Vol] 84 mg/dL 70 - 108 mg/dl [facility] Comment on above: Performed at [facility] [employer] [facility] [address] [place] [address] Glucose [Mass/Vol] 86 mg/dL 70 - 108 mg/dl [facility] Comment on above: Performed at [facility] [employer] [facility] [address] [place] [address] Glucose [Mass/Vol] 90 mg/dL 70 - 108 mg/dl [facility] Comment on above: Performed at [facility] [employer] [facility] [address] [place] [address] CBCon 02-11-2022 Erythrocyte distribution width (RBC) [Ratio] 13.7 % 11.5 - 14.5 % [facility] Erythrocyte distribution width (RBC) [Ratio] 48.8 fL High 35.0 - 45.0 fL [facility] Hematocrit (Bld) [Volume fraction] 31.5 % Low 42.0 - 52.0 % [facility] Hemoglobin.gastrointes tinal spec 1 Ql (Stl) 9.8 Low [facility] th Interpretation and review of laboratory results Abnormal [facility] MCH (RBC) [Entitic mass] 30.2 pg 26.0 - 33.0 pg [facility] MCHC (RBC) [Mass/Vol] 31.1 g/dL Low [facility] MCV (RBC) [Entitic vol] 97.2 fL High 80.0 - 94.0 fL [facility] Platelet mean volume (Bld) [Entitic vol] 12.8 fL High 9.4 - 12.4 fL [facility] Comment on above: Performed at [facility] [address] [place] [address] Platelets (Bld) [#/Vol] 122 10*3/uL Low [facility] RBC (Bld) [#/Vol] 3.24 10*6/uL Low [facility] WBC (Bld) [#/Vol] 5.7 10*3/uL [facility] CBC NO DIFFERENTIALon 2021 Erythrocyte distribution width (RBC) [Ratio] 13.7 % Normal 11.5-14.5 [facility] Comment on above: Performed By: #### P OCGL #### [facility] [employer] [address] [place] [address] Hematocrit (Bld) [Volume fraction] 31.5 % Low 42.0-52.0 [facility] Comment on above: Performed By: #### P OCGL #### [facility] [address] [place] [address] Hemoglobin (Bld) [Mass/Vol] 9.8 g/dL Low 14.0-18.0 [facility] Comment on above: Performed By: #### P OCGL #### [facility] [employer] [address] [place] [address] MCH (RBC) [Entitic mass] 30.2 pg Normal 26.0-33.0 [facility] Comment on above: Performed By: #### P OCGL #### [facility] [address] [place] [address] MCHC (RBC) [Mass/Vol] 31.1 g/dL Low 32.2-35.5 [facility] Comment on above: Performed By: #### P OCGL #### [facility] [address] [place] [address] MCV (RBC) [Entitic vol] 97.2 fL High 80.0-94.0 [facility] Comment on above: Performed By: #### P OCGL #### [address] [address] PLATELET 122 thou/mm3 Low 130-400 [facility] Comment on above: Performed By: #### P OCGL #### [address] [address] Platelet mean volume (Bld) [Entitic vol] 12.8 fL High 9.4-12.4 [facility] Comment on above: Performed By: #### P OCGL #### [address] [address] RBC 3.24 mill/mm3 Low 4.70-6.10 [facility] Comment on above: Performed By: #### P OCGL #### [address] [address] RDW-SD 48.8 fL High 35.0-45.0 [facility] Comment on above: Performed By: #### P OCGL #### [facility] [address] [address] WBC 5.7 thou/mm3 Normal 4.8-10.8 [facility] Comment on above: Performed By: #### P OCGL #### [facility] [address] [address] GLUCOSE POCon 02-11-2022 Glucose [Mass/Vol] 116 mg/dL High 70-108 [facility] Comment on above: Performed By: #### P OCGL #### [address] [address] Glucose [Mass/Vol] 87 mg/dL Normal 70-108 [facility] Comment on above: Performed By: #### C BCND, PT, APTT, BMP, ANION, EGFR1 #### [address] [address] Glucose [Mass/Vol] 90 mg/dL Normal 70-108 [facility] Comment on above: Performed By: #### P OCGL #### [address] [address] Glucose [Mass/Vol] 112 mg/dL High 70-108 [facility] Comment on above: Performed By: #### C BCND, PT, APTT, BMP, ANION, EGFR1 #### [address] [address] POCT Glucoseon 02-11-2022 Glucose [Mass/Vol] 87 mg/dL 70 - 108 mg/dl [facility] Comment on above: Performed at [facility] [address] [place] [address] Glucose [Mass/Vol] 90 mg/dL 70 - 108 mg/dl [facility] Comment on above: Performed at [facility] [address] [place] [address] Glucose [Mass/Vol] 112 mg/dL High 70 - 108 mg/dl [facility] Comment on above: Performed at [facility] [address] [place] [address] Interpretation and review of laboratory results Abnormal [facility] POCT glucoseon 02-11-2022 Glucose [Mass/Vol] 116 mg/dL High 70 - 108 mg/dl [facility] Comment on above: Performed at [facility] [address] [place] [address] Interpretation and review of laboratory results Abnormal [facility] VITAMIN B12 FOLATEon 022 Cobalamin (Vitamin B12) [Mass/Vol] 386 pg/mL Normal 211-911 [facility] Comment on above: Performed By: #### C BCND, PT, APTT, BMP, ANION, EGFR1 #### [address] [address] FOLATE 7.5 ng/mL Normal 4.8-24.2 [facility] Comment on above: Performed By: #### C BCND, PT, APTT, BMP, ANION, EGFR1 #### [facility] [address] [place] [address] Vitamin B12 & Folateon 02-11 Cobalamin (Vitamin B12) [Mass/Vol] 386 pg/mL 211 - 911 pg/mL [employer] Folate 7.5 ng/mL 4.8 - 24.2 ng/mL [facility] Comment on above: Performed at [facility] [employer] [facility] [address] [place] [address] [employer] CORTISOLon 02-10-2022 CORTISOL SPECIMEN 60 Minute Normal [facility] Comment on above: Performed By: #### P OCGL #### [facility] [address] [place] [address] ECHO Complete 2D W Doppler W Coloron 02-10-2022 Transthoracic Echocardiography Report (TTE) Demographics Patient Name SUNNY Cox Gender Male MR # [id number] Race Ethnicity Room Number 0025 Date of Study 02/10/2022 Number Date of 1960 Referring Physician Bala Schrader MD Age 61 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 Lyn Prince [facility] Interpreting Beata Leahy MD Physician [...] E/E' lateral: 7.08 MR Velocity: 463 cm/s [id number]%3d [employer] Work Phone: ECHO Complete 2D W Doppler W ColorOrdered By: Armond Cota on 02-10-2022 [employer] Work Phone: ECHOCARDIOGRAM COMPLETE 2D W DOPPLER W COLORon 02-10-2022 ECHOCARDIOGRAM COMPLETE 2D W DOPPLER W COLOR Transthoracic Echocardiography Report (TTE) Demographics Patient Name SUNNY Cox Gender Male MR # [id number] Race Ethnicity Room Number 0025 Date of Study 02/10/2022 Number Date of 1960 Referring Physician Bala Schrader MD Age 61 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(s) 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 Lyn Prince [facility] Interpreting Beata Leahy MD Physician [...] E/E' lateral: 7.08 MR Velocity: 463 cm/s [id number]%3d%3d Normal [facility] GLUCOSE POCon 02-10-2022 Glucose [Mass/Vol] 113 mg/dL High [address] [facility] Comment on above: Performed By: #### C BCND, PT, APTT, BMP, ANION, EGFR1 #### [facility] [address] [place] [address] Glucose [Mass/Vol] 110 mg/dL High [address] Comment on above: Performed By: #### P OCGL #### [facility] [address] [place] [address] Glucose [Mass/Vol] 136 mg/dL High 70-108 [facility] Comment on above: Performed By: #### C BCND, PT, APTT, BMP, ANION, EGFR1 #### [facility] [address] [place] [address] Glucose [Mass/Vol] 125 mg/dL High 70-108 [facility] Comment on above: Performed By: #### P OCGL ####[facility] [address] [place] [address] POCT Glucoseon 02-10-2022 Glucose [Mass/Vol] 113 mg/dL High 70 - 108 mg/dl [facility] Comment on above: Performed at [facility] [employer] [facility] [address] [place] [address] Interpretation and review of laboratory results Abnormal [facility] Glucose [Mass/Vol] 110 mg/dL High 70 - 108 mg/dl [facility] Comment on above: Performed at [facility] [address] [place] [address] Interpretation and review of laboratory results Abnormal [facility] Glucose [Mass/Vol] 136 mg/dL High 70 - 108 mg/dl [facility] Comment on above: Performed at [facility] [address] [place] [address] Interpretation and review of laboratory results Abnormal [facility] Glucose [Mass/Vol] 125 mg/dL High 70 - 108 mg/dl [facility] Comment on above: Performed at [facility] [address] [place] [address] Interpretation and review of laboratory results Abnormal [facility] TSHon 02-10-2022 Interpretation and review of laboratory results Abnormal [facility] TSH Qn 0.354 m[IU]/L Low [facility] Comment on above: Performed at [facility] [address] [place] [address] TSH THIRD GENERATIONon 02-10 TSH THIRD GENERATION 0.354 uIU/mL Low 0.400-4 .20 0 [facility] Comment on above: Performed By: #### P OCGL #### [facility] [place] [address] CBC WITH DIFFERENTIALon 01-18 ABS BASOPHILS 0.0 thou/mm3 Normal 0.0-0.1 [facility] Comment on above: Performed By: #### C BCND, PT, APTT, BMP, ANION, EGFR1 #### [facility] [employer] [address] [place] [address] ABS EOSINOPHILS 0.1 thou/mm3 Normal 0.0-0.4 [facility] Comment on above: Performed By: #### C BCND, PT, APTT, BMP, ANION, EGFR1 #### [facility] [place] [address] ABS IMMATURE GRANS (IG) 0.02 thou/mm3 Normal 0.00-0.07 [facility] Comment on above: Performed By: #### C BCND, PT, APTT, BMP, ANION, EGFR1 #### [address] [address] ABS LYMPHOCYTES 1.3 thou/mm3 Normal 1.0-4.8 [facility] Comment on above: Performed By: #### C BCND, PT, APTT, BMP, ANION, EGFR1 #### [facility] [address] [place] [address] ABS MONOCYTES 0.6 thou/mm3 Normal 0.4-1.3 [facility] Comment on above: Performed By: #### C BCND, PT, APTT, BMP, ANION, EGFR1 #### [address] [address] ABS NEUTROPHILS 4.3 thou/mm3 Normal 1.8-7.7 [facility] Comment on above: Performed By: #### C BCND, PT, APTT, BMP, ANION, EGFR1 #### [address] [address] Basophils/100 WBC (Bld) 0.3 % Normal [facility] Comment on above: Performed By: #### C BCND, PT, APTT, BMP, ANION, EGFR1 #### [address] [address] Eosinophils/100 WBC (Bld) 1.4 % Normal [facility] Comment on above: Performed By: #### C BCND, PT, APTT, BMP, ANION, EGFR1 #### [address] [address] Erythrocyte distribution width (RBC) [Ratio] 13.3 % Normal 11.5-14.5 [facility] Comment on above: Performed By: #### C BCND, PT, APTT, BMP, ANION, EGFR1 #### [address] [address] Hematocrit (Bld) [Volume fraction] 34.3 % Low 42.0-52.0 [facility] Comment on above: Performed By: #### C BCND, PT, APTT, BMP, ANION, EGFR1 #### [place] [address] Hemoglobin (Bld) [Mass/Vol] 10.8 g/dL Low 14.0-18.0 [facility] Comment on above: Performed By: #### C BCND, PT, APTT, BMP, ANION, EGFR1 #### [place] [address] IMMATURE GRANS (IG) 0.3 % Normal [facility] Comment on above: Performed By: #### C BCND, PT, APTT, BMP, ANION, EGFR1 #### [place] [address] Lymphocytes/100 WBC (Bld) 20.2 % Normal [facility] Comment on above: Performed By: #### C BCND, PT, APTT, BMP, ANION, EGFR1 #### [place] [address] MCH (RBC) [Entitic mass] 30.2 pg Normal 26.0-33.0 [facility] Comment on above: Performed By: #### C BCND, PT, APTT, BMP, ANION, EGFR1 #### [place] [address] MCHC (RBC) [Mass/Vol] 31.5 g/dL Low 32.2-35.5 [facility] Comment on above: Performed By: #### C BCND, PT, APTT, BMP, ANION, EGFR1 #### [place] [address] MCV (RBC) [Entitic vol] 95.8 fL High 80.0-94.0 [facility] Comment on above: Performed By: #### C BCND, PT, APTT, BMP, ANION, EGFR1 #### [place] [address] Monocytes/100 WBC (Bld) 9.5 % Normal [facility] Comment on above: Performed By: #### C BCND, PT, APTT, BMP, ANION, EGFR1 #### [address] [address] Neutrophils/100 WBC (Bld) 68.3 % Normal [facility] Comment on above: Performed By: #### C BCND, PT, APTT, BMP, ANION, EGFR1 #### [address] [address] NRBC 0 /100 wbc Normal [facility] Comment on above: Performed By: #### C BCND, PT, APTT, BMP, ANION, EGFR1 #### [address] [address] PLATELET 98 thou/mm3 Low 130-400 [facility] Comment on above: Performed By: #### C BCND, PT, APTT, BMP, ANION, EGFR1 #### [address] [address] Platelet mean volume (Bld) [Entitic vol] 12.9 fL High 9.4-12.4 [facility] Comment on above: Performed By: #### C BCND, PT, APTT, BMP, ANION, EGFR1 #### [place] [address] RBC 3.58 mill/mm3 Low 4.70-6.10 [facility] Comment on above: Performed By: #### C BCND, PT, APTT, BMP, ANION, EGFR1 #### [place] [address] RDW-SD 47.0 fL High 35.0-45.0 [facility] Comment on above: Performed By: #### C BCND, PT, APTT, BMP, ANION, EGFR1 #### [address] [address] WBC 6.3 thou/mm3 Normal 4.8-10.8 [facility] Comment on above: Performed By: #### C BCND, PT, APTT, BMP, ANION, EGFR1 #### [address] [address] CBC with Auto Differentialon 02-09-2022 Basophils (Bld) [#/Vol] 0.0 10*3/uL [facility] Basophils/100 WBC (Bld) 0.3 % [facility] Eosinophils Absolute 0.1 [facility] Eosinophils/100 WBC (Bld) 1.4 % [facility] Erythrocyte distribution width (RBC) [Ratio] 13.3 % 11.5 - 14.5 % [facility] Erythrocyte distribution width (RBC) [Ratio] 47 fL High 35.0 - 45.0 fL [facility] Hematocrit (Bld) [Volume fraction] 34.3 % Low 42.0 - 52.0 % [facility] Hemoglobin.gastrointes tinal spec 1 Ql (Stl) 10.8 Low [facility] th Immature Grans (Abs) 0.02 [facility] Immature granulocytes/100 WBC (Bld) 0.3 % [facility] Interpretation and review of laboratory results Abnormal [facility] Lymphocytes Absolute 1.3 [facility] Lymphocytes/100 WBC (Bld) 20.2 % [facility] MCH (RBC) [Entitic mass] 30.2 pg 26.0 - 33.0 pg [facility] MCHC (RBC) [Mass/Vol] 31.5 g/dL Low [facility] MCV (RBC) [Entitic vol] 95.8 fL High 80.0 - 94.0 fL [facility] Monocytes Absolute 0.6 [facility] Monocytes/100 WBC (Bld) 9.5 % [facility] nRBC 0 /100 wbc [facility] Comment on above: Performed at [facility] [address] [place] [address] Platelet mean volume (Bld) [Entitic vol] 12.9 fL High 9.4 - 12.4 fL [facility] Platelets (Bld) [#/Vol] 98 10*3/uL Low [facility] RBC (Bld) [#/Vol] 3.58 10*6/uL Low [facility] Segmented neutrophils/100 WBC (Bld) 68.3 % [facility] Segs [facility] 4.3 [facility] [#/Vol] 6.3 10*3/uL [facility] CORTISOLon 02-09-2022 CORTISOL 15.55 ug/dL Normal [facility] Comment on above: Result Comment: Andres cunningham ranges AM serum (7-9AM): 4.82-19.5 ug/dl PM serum (3-5PM): 2.47-11.9 ug/dl Performed By: #### P OCGL #### [facility] [address] [place] [address] CORTISOL 21.14 ug/dL Normal [facility] Comment on above: Result Comment: Refe rence ranges AM serum (7-9AM): 4.82-19.5 ug/dl PM serum (3-5PM): 2.47-11.9 ug/dl Performed By: #### P OCGL #### [facility] [address] [place] [address] CORTISOL SPECIMEN 30 Minute Normal [facility] Comment on above: Performed By: #### P OCGL #### [facility] [address] [place] [address] CORTISOL SPECIMEN Baseline Normal [facility] Comment on above: Performed By: #### P OCGL #### [facility] [address] [place] [address] CORTISOL 7.85 ug/dL Normal [facility] Comment on above: Result Comment: Refe rence ranges AM serum (7-9AM): 4.82-19.5 ug/dl PM serum (3-5PM): 2.47-11.9 ug/dl Performed By: #### P OCGL #### [employer] [address] [address] CORTISOL SPECIMEN AM Specimen Normal [facility] Comment on above: Performed By: #### P OCGL #### [facility] [address] [place] [address] CORTISOL 4.35 ug/dL Normal [facility] Comment on above: Result Comment: Refe rence ranges AM serum (7-9AM): 4.82-19.5 ug/dl PM serum (3-5PM): 2.47-11.9 ug/dl Performed By: #### P OCGL #### [employer] [address] [address] Cortisol Totalon 02-09-2022 Cortisol 21.14 ug/dL [facility] Comment on above: Reference ranges AM serum (7-9AM): 4.82-19.5 ug/dl PM serum (3-5PM): 2.47-11.9 ug/dl Cortisol Collection Info 60 Minute [employer] Comment on above: Performed at [facility] [address] [place] [address] Cortisol 15.55 ug/dL [facility] Comment on above: Reference ranges AM serum (7-9AM): 4.82-19.5 ug/dl PM serum (3-5PM): 2.47-11.9 ug/dl Cortisol Collection Info 30 Minute [employer] Comment on above: Performed at [facility] [address] [place] [address] Cortisol 4.35 ug/dL [facility] Comment on above: Reference ranges AM serum (7-9AM): 4.82-19.5 ug/dl PM serum (3-5PM): 2.47-11.9 ug/dl Cortisol Collection Info AM Specimen [facility] [employer] Comment on above: Performed at [facility] [address] Cortisol, 0 minuteson 2021 Cortisol 7.85 ug/dL [facility] Comment on above: Reference ranges AM serum (7-9AM): 4.82-19.5 ug/dl PM serum (3-5PM): 2.47-11.9 ug/dl Cortisol Collection Info [facility] Comment on above: Performed at [facility] [employer] [address] GLUCOSE POCon 02-09-2022 Glucose [Mass/Vol] 154 mg/dL High 70-108 [facility] Comment on above: Performed By: #### P OCGL #### [facility] [address] [place] [address] Glucose [Mass/Vol] 167 mg/dL High 70-108 [facility] Comment on above: Performed By: #### C BCND, PT, APTT, BMP, ANION, EGFR1 #### [facility] [address] [place] [address] Glucose [Mass/Vol] 121 mg/dL High 70-108 [facility] Comment on above: Performed By: #### P OCGL #### [facility] [address] [place] [address] Glucose [Mass/Vol] 106 mg/dL Normal 70-108 [facility] Comment on above: Performed By: #### P OCGL #### [facility] [address] [place] [address] Glucose [Mass/Vol] 117 mg/dL High 70-108 [facility] Comment on above: Performed By: #### P OCGL #### [place] [address] POCT Glucoseon 02-09-2022 Glucose [Mass/Vol] 154 mg/dL High 70 - 108 mg/dl [facility] Comment on above: Performed at [facility] [address] [place] [address] Interpretation and review of laboratory results Abnormal [facility] Glucose [Mass/Vol] 167 mg/dL High 70 - 108 mg/dl [facility] Comment on above: Performed at [facility] [address] [place] [address] Interpretation and review of laboratory results Abnormal [facility] Glucose [Mass/Vol] 121 mg/dL High 70 - 108 mg/dl [facility] Comment on above: Performed at [facility] [address] [place] [address] Interpretation and review of laboratory results Abnormal [facility] Glucose [Mass/Vol] 106 mg/dL 70 - 108 mg/dl [facility] Comment on above: Performed at [facility] [address] [place] [address] Glucose [Mass/Vol] 117 mg/dL High 70 - 108 mg/dl [facility] Comment on above: Performed at [facility] [address] [place] [address] Interpretation and review of laboratory results Abnormal [facility] ANION GAPon 02-08-2022 Anion gap [Moles/Vol] 9.0 mmol/L Normal 8.0-16.0 [facility] Comment on above: Result Comment: ANIO N GAP = Sodium -(Chloride + CO2) Performed By: #### C BCND, PT, APTT, BMP, ANION, EGFR1 #### [facility] [place] [address] Anion Gapon 04-23-2022 Anion gap [Moles/Vol] 9.0 mmol/L 8.0 - 16.0 meq/L [facility] Comment on above: ANION GAP = Sodium - (Chloride + CO2) [place] [address] Anion gap [Moles/Vol] 6.0 mmol/L Low 8.0 - 16.0 meq/L [facility] Comment on above: ANION GAP = Sodium - (Chloride + CO2) [place] [address] BASIC METABOL PANELon 2021 Calcium [Mass/Vol] 7.8 mg/dL Low 8.5-10.5 [facility] Comment on above: Performed By: #### C BCND, PT, APTT, BMP, ANION, EGFR1 #### [address] [address] Chloride [Moles/Vol] 108 mmol/L Normal 98-111 [facility] Comment on above: Performed By: #### C BCND, PT, APTT, BMP, ANION, EGFR1 #### [address] [address] CO2 [Moles/Vol] 21 mmol/L Low 23-33 [facility] Comment on above: Performed By: #### C BCND, PT, APTT, BMP, ANION, EGFR1 #### [address] [address] Creatinine [Mass/Vol] 1.0 mg/dL Normal 0.4-1.2 [facility] Comment on above: Performed By: #### C BCND, PT, APTT, BMP, ANION, EGFR1 #### [address] [address] Glucose [Mass/Vol] 112 mg/dL High 70-108 [facility] Comment on above: Performed By: #### C BCND, PT, APTT, BMP, ANION, EGFR1 #### [address] [address] Potassium [Moles/Vol] 4.3 mmol/L Normal 3.5-5.2 [facility] Comment on above: Performed By: #### C BCND, PT, APTT, BMP, ANION, EGFR1 #### [facility] [address] [place] [address] Sodium [Moles/Vol] 138 mmol/L Normal 135-145 [facility] Comment on above: Performed By: #### C BCND, PT, APTT, BMP, ANION, EGFR1 #### [facility] [address] [place] [address] Urea nitrogen [Mass/Vol] 12 mg/dL Normal 7-22 [facility] Comment on above: Performed By: #### C BCND, PT, APTT, BMP, ANION, EGFR1 #### [facility] [address] [place] [address] Basic Metabolic Panelon 01-18 Calcium [Mass/Vol] 7.8 mg/dL Low 8.5 - 10. 5 mg/dL [facility] Comment on above: Performed at [facility] [employer] [facility] [address] [place] [address] Chloride [Moles/Vol] 108 mmol/L 98 - 11 1 meq/L [facility] CO2 [Moles/Vol] 21 mmol/L Low 23 - 33 meq/L [facility] Creatinine [Mass/Vol] 1 mg/dL 0.4 - 1.2 mg/dL [facility] Glucose [Mass/Vol] 112 mg/dL High 70 - 108 mg/dL [facility] Potassium [Moles/Vol] 4.3 mmol/L 3.5 - 5.2 meq/L [facility] Sodium [Moles/Vol] 138 mmol/L 135 - 145 meq/L [facility] Urea nitrogen (BldV) [Mass/Vol] 12 mg/dL 7 - 22 mg/dL [facility] Calcium [Mass/Vol] 7.5 mg/dL Low 8.5 - 10. 5 mg/dL [facility] Comment on above: Performed at [facility] [employer] [facility] [address] [place] [address] Chloride [Moles/Vol] 109 mmol/L 98 - 11 1 meq/L [facility] CO2 [Moles/Vol] 22 mmol/L Low 23 - 33 meq/L [facility] Creatinine [Mass/Vol] 0.8 mg/dL 0.4 - 1.2 mg/dL [facility] Glucose [Mass/Vol] 104 mg/dL 70 - 108 mg/dL [facility] Potassium [Moles/Vol] 3.8 mmol/L 3.5 - 5.2 meq/L [facility] Sodium [Moles/Vol] 137 mmol/L 135 - 145 meq/L [facility] Urea nitrogen (BldV) [Mass/Vol] 12 mg/dL 7 - 22 mg/dL [facility] CBCon 02-08-2022 Erythrocyte distribution width (RBC) [Ratio] 13.4 % 11.5 - 14.5 % [facility] Erythrocyte distribution width (RBC) [Ratio] 48.5 fL High 35.0 - 45.0 fL [facility] Hematocrit (Bld) [Volume fraction] 33.5 % Low 42.0 - 52.0 % [facility] Hemoglobin.gastrointes tinal spec 1 Ql (Stl) 10.2 Low [facility] th Interpretation and review of laboratory results Abnormal [facility] MCH (RBC) [Entitic mass] 30.1 pg 26.0 - 33.0 pg [facility] MCHC (RBC) [Mass/Vol] 30.4 g/dL Low [facility] MCV (RBC) [Entitic vol] 98.8 fL High 80.0 - 94.0 fL [facility] Platelet mean volume (Bld) [Entitic vol] 12.9 fL High 9.4 - 12.4 fL [facility] Comment on above: Performed at [facility] [address] [place] [address] Platelets (Bld) [#/Vol] 89 10*3/uL Low [facility] RBC (Bld) [#/Vol] 3.39 10*6/uL Low [facility] WBC (Bld) [#/Vol] 6.2 10*3/uL [facility] CBC NO DIFFERENTIALon 2021 Erythrocyte distribution width (RBC) [Ratio] 13.4 % Normal 11.5-14.5 [facility] Comment on above: Performed By: #### P OCGL #### [employer] [address] [place] [address] Hematocrit (Bld) [Volume fraction] 33.5 % Low 42.0-52.0 [facility] Comment on above: Performed By: #### P OCGL #### [address] [address] Hemoglobin (Bld) [Mass/Vol] 10.2 g/dL Low 14.0-18.0 [facility] Comment on above: Performed By: #### P OCGL #### [address] [address] MCH (RBC) [Entitic mass] 30.1 pg Normal 26.0-33.0 [facility] Comment on above: Performed By: #### P OCGL #### [address] [address] MCHC (RBC) [Mass/Vol] 30.4 g/dL Low 32.2-35.5 [facility] Comment on above: Performed By: #### P OCGL #### [address] [address] MCV (RBC) [Entitic vol] 98.8 fL High 80.0-94.0 [facility] Comment on above: Performed By: #### P OCGL #### [address] [address] PLATELET 89 thou/mm3 Low 130-400 [facility] Comment on above: Performed By: #### P OCGL #### [address] [address] Platelet mean volume (Bld) [Entitic vol] 12.9 fL High 9.4-12.4 [facility] Comment on above: Performed By: #### P OCGL #### [address] [address] RBC 3.39 mill/mm3 Low 4.70-6.10 [facility] Comment on above: Performed By: #### P OCGL #### [address] [address] RDW-SD 48.5 fL High 35.0-45.0 [facility] Comment on above: Performed By: #### P OCGL #### [address] [address] WBC 6.2 thou/mm3 Normal 4.8-10.8 [facility] Comment on above: Performed By: #### P OCGL #### [facility] [address] [place] [address] EKG 12 LeadOrdered By: Susan Carrion on 02-08-2022 Atrial Rate 55 BPM [facility] Work Phone: P [place] 27 degrees [facility] Work Phone: P-R Interval 162 ms [employer] Work Phone: Q-T Interval 460 ms [employer] Work Phone: QRS Duration 94 ms [employer] Work Phone: QTc Calculation (Bazett) 440 ms [facility] Work Phone: R [place] -22 degrees [facility] Work Phone: T [place] 1 degrees [facility] Work Phone: Ventricular Rate 55 BPM [facility] Work Phone: [employer] Work Phone: EKG 12 Leadon 02-08-2022 Sinus bradycardia Otherwise normal ECG When compared with ECG of 23-JAN-2022 11:32, No significant change was found Confirmed by SUSAN CARRION ([id number]) on 02/08/2022 10:35:59 AM [facility] Susan Carrion MD - 02/08/2022 Sinus bradycardia Otherwise normal ECG When compared with ECG of 23-JAN-2022 11:32, No significant change was found Confirmed by SUSAN CARRION ([id number]) on 02/08/2022 10:35:59 AM [employer] Work Phone: EKG 12-LEADon 02-08-2022 EKG 12-LEAD 55 55 162 94 460 440 27 -22 1 Sinus bradycardia Otherwise normal ECG When compared with ECG of 23-JAN-2022 11:32, No significant change was found Confirmed by SUSAN CARRION ([id number]) on 02/08/2022 10:35:59 AM [email or web address] [id number]&Date=09-02-20 22&Time=09%3a14%3a41%3a00 &TestType=ECG&Site=3&Outp utType=PDF&Ext=PDF Normal [facility] GFR, ESTIMATEDon 02-08-2022 GFR/1.73 sq M.predicted MDRD (S/P/Bld) [Vol rate/Area] 75 mL/min/{1.73_m2} Abnormal [facility] Comment on above: Result Comment: Lilliam crum [...] BCND, PT, APTT, BMP, ANION, EGFR1 #### [facility] [address] [place] [address] GLUCOSE POCon 02-08-2022 Glucose [Mass/Vol] 71 mg/dL Normal 70-108 [facility] Comment on above: Performed By: #### P OCGL ####[facility] [address] [place] [address] Glucose [Mass/Vol] 111 mg/dL High 70-108 [facility] Comment on above: Performed By: #### C BCND, PT, APTT, BMP, ANION, EGFR1 #### [facility] [address] [place] [address] Glucose [Mass/Vol] 66 mg/dL Low 70-108 [facility] Comment on above: Performed By: #### P OCGL #### [facility] [address] [place] [address] Glucose [Mass/Vol] 116 mg/dL High 70-108 [facility] Comment on above: Performed By: #### C BCND, PT, APTT, BMP, ANION, EGFR1 #### [facility] [address] [place] [address] Glucose [Mass/Vol] 68 mg/dL Low 70-108 [facility] Comment on above: Performed By: #### P OCGL #### [facility] [address] [place] [address] Glucose [Mass/Vol] 101 mg/dL Normal 70-108 [facility] Comment on above: Performed By: #### C BCND, PT, APTT, BMP, ANION, EGFR1 #### [facility] [address] [place] [address] Glucose [Mass/Vol] 126 mg/dL High 70-108 [facility] Comment on above: Performed By: #### P OCGL #### [address] [address] Glomerular Filtration Rate, Estimatedon 02-08-2022 GFR/1.73 sq M.predicted MDRD (S/P/Bld) [Vol rate/Area] 75 mL/min/{1.73_m2} Abnormal ml/min/1.[address] [place] [address] Comment on above: Stage Description GF R, [...] Vol. 139 (2) pg 137-147. Performed at [facility] [address] [address] GFR/1.73 sq M.predicted MDRD (S/P/Bld) [Vol rate/Area] mL/min/{1.73_m2} ml/min/1.[address] [place] [address] Comment on above: Stage Description GF R, [...] Vol. 139 (2) pg 137-147. Performed at [facility] [address] [place] [address] HGB,HCTon 02-08-2022 Hematocrit (Bld) [Volume fraction] 37.3 % Low 42.0-52.0 [facility] Comment on above: Performed By: #### P OCGL #### [place] [address] Hemoglobin (Bld) [Mass/Vol] 11.4 g/dL Low 14.0-18.0 [facility] Comment on above: Performed By: #### P OCGL #### [place] [address] Hemoglobin and Hematocriton 02-08-2022 Hematocrit (Bld) [Volume fraction] 37.3 % Low 42.0 - 52.0 % [facility] Comment on above: Performed at [facility] [facility] [address] [place] [address] Hemoglobin.gastrointes tinal spec 1 Ql (Stl) 11.4 Low [facility] Interpretation and review of laboratory results Abnormal [facility] Hemoglobin and hematocrit, b loodon 02-08-2022 Hematocrit (Bld) [Volume fraction] 36.9 % Low 42.0 - 52.0 % [facility] Comment on above: Performed at [facility] [address] [place] [address] Hemoglobin.gastrointes tinal spec 1 Ql (Stl) 11.6 Low [facility] Interpretation and review of laboratory results Abnormal [facility] No Panel Informationon 02-08 Interpretation and review of laboratory results Abnormal [facility] Interpretation and review of laboratory results Abnormal [facility] POCT Glucoseon 02-08-2022 Glucose [Mass/Vol] 71 mg/dL 70 - 108 mg/dl [facility] Comment on above: Performed at [facility] [address] [place] [address] Glucose [Mass/Vol] 111 mg/dL High 70 - 108 mg/dl [facility] Comment on above: Performed at [facility] [address] [place] [address] Interpretation and review of laboratory results Abnormal [facility] Glucose [Mass/Vol] 66 mg/dL Low 70 - 108 mg/dl [facility] Comment on above: Performed at [facility] [address] [place] [address] Interpretation and review of laboratory results Abnormal [facility] Glucose [Mass/Vol] 116 mg/dL High 70 - 108 mg/dl [facility] Comment on above: Performed at [facility] [address] [place] [address] Interpretation and review of laboratory results Abnormal [facility] Glucose [Mass/Vol] 68 mg/dL Low 70 - 108 mg/dl [facility] Comment on above: Performed at [facility] [address] [place] [address] Interpretation and review of laboratory results Abnormal [facility] Glucose [Mass/Vol] 101 mg/dL 70 - 108 mg/dl [facility] Comment on above: Performed at [facility] [address] [place] [address] Glucose [Mass/Vol] 126 mg/dL High 70 - 108 mg/dl [facility] Comment on above: Performed at [facility] [address] [place] [address] Interpretation and review of laboratory results Abnormal [facility] PROCALCITONINon 02-08-2022 PROCALCITONIN 0.08 ng/mL Normal 0.01-0.09 [facility] Comment on above: Result [...] entered into the Change in Procalcitonin Calculator (www.ijtagw-vhy-lfvhetggmi.[employer]) to determine the patient's Mortality Risk Prognosis. In healthy neonates, plasma Procalcitonin (PCT) concentrations increase gradually after , reaching peak values at about 24 hours of age then decrease to normal values below 0.5 ng/mL by 48-72 hours of age. Performed By: #### P OCGL #### [facility] [address] [place] [address] Procalcitoninon 02-08-2022 Procalcitonin 0.08 ng/mL 0.01 - 0.09 ng/mL [facility] Comment on above: Suspected Sepsis: <0.50 [...] entered into the Change in Procalcitonin Calculator (www.fhpjxu-uij-xzuleabvbv.[employer]na) to determine the patient's Mortality Risk Prognosis. In healthy neonates, plasma Procalcitonin (PCT) concentrations increase gradually after , reaching peak values at about 24 hours of age then decrease to normal values below 0.5 ng/mL by 48-72 hours of age. Performed at [facility] [address] [place], [place] [id number] [facility] SCAN OF BLOOD SMEARon 2021 SCAN OF BLOOD SMEAR see below Normal [facility] Comment on above: Result Comment: Sony stafford Exceeded; Scan of Differential Slide Performed Performed By: #### P OCGL #### [facility] [address] [place] [address] Scan of Blood Smearon 2021 SCAN OF BLOOD SMEAR see below [facility] Comment on above: Criteria Exceeded; S can of Differential Slide Performed Performed at [facility] [address] [place] [address] [employer] XR CHEST PORTABLEon 02-09-20 22 Prominent left basil ar opacity as evidence for atelectasis and/or infiltrate. This report has been created using voice recognition software. It may contain minor errors which are inherent in voice recognition technology. Final report electronically signed by Dr. Romel Maldonado DO, MD on 02/08/2022 10:26 AM [facility] Romel Sneed DO - 02/08/2022 PROCEDURE: XR [...] Maldonado DO, MD on 02/08/2022 10:26 AM [facility] Phone: Radiology Study observation (narrative) [facility] Phone: XR CHEST PORTABLEOrdered By: Romel Maldonado on 02-08-2022 [facility] Phone: GLUCOSE POCon 02-07-2022 Glucose [Mass/Vol] 132 mg/dL High 70-108 [facility] Comment on above: Performed By: #### C BCND, PT, APTT, BMP, ANION, EGFR1 #### [facility] [address] [place] [address] Glucose [Mass/Vol] 118 mg/dL High 70-108 [facility] Comment on above: Performed By: #### C BCND, PT, APTT, BMP, ANION, EGFR1 #### [facility] [address] [place] [address] Glucose [Mass/Vol] 77 mg/dL Normal 70-108 [facility] Comment on above: Performed By: #### P OCGL #### [place] [address] POCT Glucoseon 02-07-2022 Glucose [Mass/Vol] 132 mg/dL High 70 - 108 mg/dl [facility] [employer] Comment on above: Performed at [facility] [address] [place] [address] Interpretation and review of laboratory results Abnormal [facility] [employer] Glucose [Mass/Vol] 118 mg/dL High 70 - 108 mg/dl [facility] Comment on above: Performed at [facility] [address] [place] [address] Interpretation and review of laboratory results Abnormal [facility] Glucose [Mass/Vol] 77 mg/dL 70 - 108 mg/dl [facility] [employer] Comment on above: Performed at [facility] [address] [place] [address] [facility] TYPE AND SCREENon 02-07-2022 ABO A [facility] Rh Factor Negative [facility] TYPE AND SCREEN CAPTUREon ABO CAPTURE A Normal [facility] Comment on above: Performed By: #### C BCND, PT, APTT, BMP, ANION, EGFR1 #### [facility] [address] [address] INDIRECT ARVIN CAPTURE Negative Normal [facility] Comment on above: Performed By: #### C BCND, PT, APTT, BMP, ANION, EGFR1 #### [facility] [address] [place] [address] RH CAPTURE (2 D CLONES) Negative Normal [facility] Comment on above: Performed By: #### C BCND, PT, APTT, BMP, ANION, EGFR1 #### [facility] [address] [address] XR LUMBAR SPINE 1 VWon 02-07 XR [...] Wicho Allen MD 02/07/22 Final result Normal [facility] Postop appearance of the lumbar spine. This report has been created using voice recognition software. It may contain minor errors which are inherent in voice recognition technology. Final report electronically signed by Dr. Wicho Allen on 02/07/2022 2:28 PM [facility] [employer] MOBILE LATERAL LUMBA R SPINE: CLINICAL INFORMATION: L2 S1 decompression, posterior COMPARISON: Earlier film same date, 1120 hours. TECHNIQUE: A single lateral mobile view of the lumbar spine was obtained following surgery performed by Dr. Loza. FINDINGS: Posterior lumbar fusion has been performed, with the pedicle screws and rods extending from L2 to S1. The lumbar vertebra are normally aligned. [facility] Wicho Heredia MD - 02/07/2022 MOBILE [...] Dr. Wicho Allen on 02/07/2022 2:28 PM [facility] Phone: Lateral film of the lumbar spine during surgery. Please refer to the operative note for further details. This report has been created using voice recognition software. It may contain minor errors which are inherent in voice recognition technology. Final report electronically signed by Dr Milton Way on 02/07/2022 2:17 PM [facility] Milton Slater MD - 02/07/2022 PROCEDURE: [...] Dr Milton Way on 02/07/2022 2:17 PM [facility] Phone: Radiology Study observation (narrative) [facility] Phone: Radiology Study observation (narrative) [facility] Phone: XR LUMBAR SPINE 1 VWOrdered By: Wicho Allen on 02-07-2022 [facility] Phone: XR LUMBAR SPINE 1 VWOrdered By: Milton Way on 02-07-2022 [facility] ANION GAPon 01-23-2022 Anion gap [Moles/Vol] 10.0 mmol/L Normal 8.0-16.0 [facility] Comment on above: Result Comment: ANIO N GAP = Sodium -(Chloride + CO2) Performed By: #### P OCGL #### [facility] [address] [place] [address] APTTon 01-23-2022 aPTT Coag (Bld) [Time] 35.1 s Normal 22.0-38.0 [facility] Comment on above: Result Comment: Ther apeutic Heparin Reference Range= 60-95 seconds (corresponds to 0.3 to 0.7 u/mL Anti-Xa factor activity) Performed By: #### C BCND, PT, APTT, BMP, ANION, EGFR1 #### [address] [address] BASIC METABOL PANELon 2021 Calcium [Mass/Vol] 9.8 mg/dL Normal 8.5-10.5 [facility] Comment on above: Performed By: #### C BCND, PT, APTT, BMP, ANION, EGFR1 #### [facility] [address] [place] [address] Chloride [Moles/Vol] 104 mmol/L Normal 98-111 [facility] Comment on above: Performed By: #### C BCND, PT, APTT, BMP, ANION, EGFR1 #### [address] [address] CO2 [Moles/Vol] 29 mmol/L Normal 23-33 [facility] Comment on above: Performed By: #### C BCND, PT, APTT, BMP, ANION, EGFR1 #### [address] [address] Creatinine [Mass/Vol] 1.0 mg/dL Normal 0.4-1.2 [facility] Comment on above: Performed By: #### C BCND, PT, APTT, BMP, ANION, EGFR1 #### [address] [address] Glucose [Mass/Vol] 87 mg/dL Normal 70-108 [facility] Comment on above: Performed By: #### C BCND, PT, APTT, BMP, ANION, EGFR1 #### [address] [address] Potassium [Moles/Vol] 4.6 mmol/L Normal 3.5-5.2 [facility] Comment on above: Performed By: #### C BCND, PT, APTT, BMP, ANION, EGFR1 #### [address] [address] Sodium [Moles/Vol] 143 mmol/L Normal 135-145 [facility] Comment on above: Performed By: #### C BCND, PT, APTT, BMP, ANION, EGFR1 #### [place] [address] Urea nitrogen [Mass/Vol] 21 mg/dL Normal 7-22 [facility] Comment on above: Performed By: #### C BCND, PT, APTT, BMP, ANION, EGFR1 #### [place] [address] CBC NO DIFFERENTIALon 2021 Erythrocyte distribution width (RBC) [Ratio] 13.7 % Normal 11.5-14.5 [facility] Comment on above: Performed By: #### C BCND, PT, APTT, BMP, ANION, EGFR1 #### [place] [address] Hematocrit (Bld) [Volume fraction] 51.9 % Normal 42.0-52.0 [facility] Comment on above: Performed By: #### C BCND, PT, APTT, BMP, ANION, EGFR1 #### [place] [address] Hemoglobin (Bld) [Mass/Vol] 16.3 g/dL Normal 14.0-18.0 [facility] Comment on above: Performed By: #### C BCND, PT, APTT, BMP, ANION, EGFR1 #### [place] [address] MCH (RBC) [Entitic mass] 30.1 pg Normal 26.0-33.0 [facility] Comment on above: Performed By: #### C BCND, PT, APTT, BMP, ANION, EGFR1 #### [place] [address] MCHC (RBC) [Mass/Vol] 31.4 g/dL Low 32.2-35.5 [facility] Comment on above: Performed By: #### C BCND, PT, APTT, BMP, ANION, EGFR1 #### [place] [address] MCV (RBC) [Entitic vol] 95.8 fL High 80.0-94.0 [facility] Comment on above: Performed By: #### C BCND, PT, APTT, BMP, ANION, EGFR1 #### [place] [address] PLATELET 149 thou/mm3 Normal 130-400 [facility] Comment on above: Performed By: #### C BCND, PT, APTT, BMP, ANION, EGFR1 #### [place] [address] Platelet mean volume (Bld) [Entitic vol] 12.6 fL High 9.4-12.4 [facility] Comment on above: Performed By: #### C BCND, PT, APTT, BMP, ANION, EGFR1 #### [place] [address] RBC 5.42 mill/mm3 Normal 4.70-6.10 [facility] Comment on above: Performed By: #### C BCND, PT, APTT, BMP, ANION, EGFR1 #### [place] [address] RDW-SD 48.8 fL High 35.0-45.0 [facility] Comment on above: Performed By: #### C BCND, PT, APTT, BMP, ANION, EGFR1 #### [place] [address] WBC 5.8 thou/mm3 Normal 4.8-10.8 [facility] Comment on above: Performed By: #### C BCND, PT, APTT, BMP, ANION, EGFR1 #### [place] [address] EKG 12-LEADon 01-23-2022 EKG 12-LEAD 55 55 168 90 438 419 24 -23 Sinus bradycardia Otherwise normal ECG No previous ECGs available Confirmed by BALA SCHRADER MD ([id number]) on 01/23/2022 7:54:09 PM [email or web address]?PatientI [id number]&Date=04-21-20 22&Time=11%3a32%3a52%3a00 &TestType=ECG&Site=3&Outp utType=PDF&Ext=PDF Normal [facility] GFR, ESTIMATEDon 01-23-2022 GFR/1.73 sq M.predicted MDRD (S/P/Bld) [Vol rate/Area] 75 mL/min/{1.73_m2} Abnormal [facility] Comment on above: Result Comment: Stag skyla [...] 137-147. Performed By: #### P OCGL #### [place] [address] HEMOGLOBIN A1Con 01-23-2022 Glucose [Mass/Vol] 99 mg/dL Normal 70-126 [facility] Comment on above: Performed By: #### C BCND, PT, APTT, BMP, ANION, EGFR1 #### [place] [address] HbA1c (Bld) [Mass fraction] 5.3 % Normal 4.4-6.4 [facility] Comment on above: Performed By: #### C BCND, PT, APTT, BMP, ANION, EGFR1 #### [address] [address] NASAL COMPLETE SCREEN RT-PCR on 01-23-2022 MRSA SCREEN RT-PCR Positive Abnormal [facility] Comment on above: Result Comment: MRSA TARGET DNA DETECTED by Real Time - Polymerase Chain Reaction. A positive test result does not necessarily indicate the presence of viable organisms. It is, however, presumptive for the presence of MRSA DNA. . Performed By: #### P OCGL #### [address] [address] SA SCREEN RT-PCR Positive Abnormal [facility] Comment on above: Result Comment: Stap hylococcus aureus (SA) target DNA DETECTED by Real Time - Polymerase Chain Reaction. A positive test result does not necessarily indicate the presence of viable organisms. It is, however presumptive for the presence of SA DNA. Performed By: #### P OCGL #### [facility] [address] [place] [address] PROTHOMBIN TIMEon 01-23-2022 INR Coag (Bld) [Relative time] 1.06 {INR} Normal 0.85-1.13 [facility] Comment on above: Result Comment: ---- -----INDICATION INR Reference Range DVT, PE, AF, AMI, tissue heart valve 2.0 to 3.0 Mechanical prosthetic valves 2.5 to 3.5 Performed By: #### C BCND, PT, APTT, BMP, ANION, EGFR1 #### [facility] [address] [place] [address] [facility] CARDIAC STRESS/REST INJE CTIONon 09-05-2021 [facility]JE[facility] Patient Name: ALISIA CORREA STUDY: MYOCARDIAL PERFUSION STRESS TEST WITH LEXISCAN Performing facility: [facility], [address] [place] [address], [address], [address] Provider: Ren Watson MD, [facility] PCP: Dr. Ellen Crabtree Supervising provider: Milagros Mcnally MD, [facility] INDICATION: Chest Pain; Dyspnea HISTORY: Gender: M; Age: 60 y/o ; Height: 0 cm; Weight: 0 kg. High Cholesterol; Chest Pain; Syncope; Parkinson's Currently smoking. COMPARISON: Previous nuclear testing completed at [facility]. ACCESSION NUMBER(S): [id number]; [id number]; [id number] ORDERING CLINICIAN: REN WATSON TECHNIQUE: ONE DAY [...] Electronically signed by: REN WATSON MD Normal [facility] No Panel Informationon 09-05 Normal -[facility] [address] [place] Work Phone: Office Visit (Cardiology)on [...] IO EKG Electrocardiogram- 12 Lead; Status:Complete; Done: [id number] Class 1 obesity with body mass index (BMI) of 32.0 to 32.9 in adult Healthy Weight Tips; Status:Complete - Retrospective Authorization; Done: [id number] Orthostatic hypotension Start: Midodrine HCl - 5 MG Oral Tablet; Take 1 tablet twice daily SocHx: Current smoker You need to quit smoking.; Status:Complete - Retrospective Authorization; Done: [id number] You need to stop smoking. Though it is not easy, more than half of all adult smokers have quit. We encourage you to write down all the reasons you should quit smoking and set a quit date for yourself. Ask us how we can help. You may also call 1-991-ODFOGene SolutionsNOW for free resources and assistance.; Status:Complete - Retrospective Authorization; Done: [id number] Tobacco Use Screening; Status:Complete; Done: [id number] Patient Instructions By signing my name below, [...] of Parkinson's disease followed by neurology from [place] on medical therapy. The patient has been [...] PCP. 7?Parkinson's disease followed by neurology from [place]. 8?obesity, encouraged the patient to reduce caloric [...] History o (more content not included)... Normal [employer] Tobacco Screening.on 021 Fall risk assessment b) One or more fall s in the last year [facility] [employer] y 250 DO Work Phone: Tobacco use status CP a) Yes [facility] [employer] y 250 DO Work Phone: Tobacco Screening. Yes [facility] [employer] 2oursusk y 250 DO Work Phone: CT C-SPINE W RECON DATA -NBo n 09-17-2020 CT C-SPINE W RECON DATA -NB * * *Final Report* * * DATE OF EXAM: Sep 17 2020 12:01PM [facility] 0478 - CT C-SPINE W RECON [...] Counting reference: Craniocervical junction. Anatomic Variants: None. Pit Operator (topogram) images: Postop changes of the [...] vertebrae with counting from the craniocervical junction. [employer] Supervisor: PSCB Transcribe Date/Time: Sep 17 2020 12:05P Dictated by : NICO MARTIN MD This examination was interpreted and the report reviewed and electronically signed by: NICO MARTIN MD on Sep 17 2020 12:08PM EST [id number] [facility] CTA HEAD WO/W IVCONon 2019 CTA HEAD WO/W IVCON * * *Final Report* * * DATE OF EXAM: Sep 17 2020 12:01PM [facility] 0023 - CTA HEAD WO/W IVCON [...] Applicable Spot Sign Number: Not Applicable NECK: Pit Operator (topogram) images: Postop changes of ACDF [...] neck arteries. Essentially normal noncontrast CT brain. [employer] Supervisor: ARPIT Transcribe Date/Time: Sep 17 2020 11:56A Dictated by : NICO MARTIN MD This examination was interpreted and the report reviewed and electronically signed by: NICO MARTIN MD on Sep 17 2020 12:09PM EST [id number] [facility] CTA NECK W IVCONon 0 CTA NECK W IVCON * * *Final Report* * * DATE OF EXAM: Sep 17 2020 12:01PM [facility] 0024 - CTA NECK W IVCON [...] Applicable Spot Sign Number: Not Applicable NECK: Pit Operator (topogram) images: Postop changes of ACDF [...] neck arteries. Essentially normal noncontrast CT brain. Brush Fabrication Supervisor: ARPIT Transcribe Date/Time: Sep 17 2020 11:56A Dictated by : NICO MARTIN MD This examination was interpreted and the report reviewed and electronically signed by: NICO MARTIN MD on Sep 17 2020 12:09PM EST [id number] [facility] PROGRESSon 09-17-2020 PROGRESS HNO ID: [id number] Author: OMERO Brownlee Service: Radiology Author Type: Clinical Management Coordinator Type: Progress Notes Filed: 09/17/2020 11:40 AM [...] OMERO Brownlee September 17, 2020 11:39 AM [facility] CNPNon 09-11-2020 CNPN Telephone (AVXRPR) ----- ALISIA CORREA ([id number]) 1960 M Date Time Provider Department 09/11/20 [...] More... Hyperlipidemia [E78.5] 12/07/2017 More... Ulcerative lesion [NLE3161] 12/07/2017 07/21/2019 Shoulder arthritis [M19.019] 12/29/2017 Status [...] gammopathy of unknown signific*09/15/2018 PD (Parkinson's disease) ([facility]) [G20] 04/13/2019 More... Dysphagia [R13.10] 04/13/2019 Psychosis [...] Encounter Status:Closed by MAKI JEONG on 09/11/[address] [facility] [address] LUMBAR SPINE WO IVCONon 1 [facility] No Panel Informationon 06-21 [facility] CT THORACIC SPINE WO IVCONon 06-15-2020 [facility] ALLIED HEALTHon 05-04-2020 ALLIED HEALTH HNO ID: [id number] Author: Daniela (Rn) ALFONSO Castro Service: Infection Prevention Author Type: Registered Nurse Type: Allied Health Filed: 05/04/2020 8:19 AM Note Text: ISOLATION NOTE Admission Date: 05/03/2020 Type of Isolation Recommended: Contact Precautions (Baldwin Isolation Sign) Indication: Carbapenem-resistant Enterobacteriaceae (CRE) Date Isolation Initiated: 05/04/2020 Anticipated Duration of Isolation: Duration of hospitalization Type and Date of Positive Test(s): urine culture 10/18/2019 SIGNATURE: Daniela Castro RN MSN PATIENT NAME: Alisia Correa DATE: May 04, 2020 TIME: 8:17 AM PAGER/CONTACT #: Merrill [phone] [facility] Basic Metabolic Panlon 05-04 Anion gap [Moles/Vol] 8 mmol/L Low 9-18 [facility] Calcium [Mass/Vol] 8.4 mg/dL Low 8.5-10.2 [facility] Chloride [Moles/Vol] 103 mmol/L Normal 97-105 [facility] CO2 [Moles/Vol] 25 mmol/L Normal 22-30 [facility] Creatinine [Mass/Vol] 1.11 mg/dL Normal 0.73-1.22 [facility] eGFR- Amer. >60 [facility] GFR/1.73 sq M predicted among non-blacks MDRD (S/P/Bld) [Vol rate/Area] mL/min/{1.73_m2} [facility] Comment on above: Result Comment: eGFR [...] ospital Comment on above: Result Comment: The [place] Diabetes Association (ADA) provides guidance for cutoff [...] Standards of Medical Care in Diabetes 2016, [place] [employer]. Diabetes Care. 2016.39(Suppl 1). Potassium [Moles/Vol] 4.1 mmol/L Normal 3.7-5.1 [facility] Sodium [Moles/Vol] 136 mmol/L Normal 136-144 [facility] ospital Urea nitrogen [Mass/Vol] 16 mg/dL Normal 9-24 [facility] CASE MANAGEMon 05-04-2020 CASE MANAGEM HNO ID: [id number] Author: Ashley JerryRn) ALFONSO Sands Service: Care Management Author Type: Registered Nurse Type: Care Mgt Progress Note Filed: 05/04/2020 11:01 AM Note Text: CARE MANAGEMENT PROGRESS NOTE SERVICE DATE: 05/04/2020 SERVICE TIME: 10:59 AM LOS: 0 days Spoke with Titi at [facility] outpatient PT. Appointment scheduled for Monday 05/07 at 1:30 PM. Patient to arrive 15 minutes early. Patient notified. SIGNATURE: Ashley Sands RN PATIENT NAME: Alisia Correa DATE: May 04, 2020 TIME: 10:59 AM PAGER/CONTACT #: [phone] [facility] CASE MGT INIT [facility] 2019 CASE MGT INIT [facility] HNO ID: [id number] Author: Ashley Nelson) ALFONSO Sands Service: Care Management Author Type: Registered Nurse Type: Care Mgt Initial Assessment Filed: 05/04/2020 10:16 AM Note Text: CARE MANAGEMENT: ASSESSMENT AND DISCHARGE PLAN SERVICE DATE: May 04, 2020 SERVICE TIME: 10:15 AM PRIMARY CARE PHYSICIAN: Ellen Crabtree DO ADMISSION STATUS: Extended Recovery MEDICAL: [employer] MEDICARE PPO Patient/Hydrological Technical Officer Stated Goals: To have reduction in pain;To have reduction in symptoms;To improve my functional status;To return home to life as it was Health Insurance: None Health Issues Impacting Discharge Plan: Newly diagnosed Newly Diagnosed: R Hip replacement Last Discharge Date: 1/22/20 Is this Within the Past 30 days? Last discharge within 30 days: No Advance Directive: Current Advance Directive: Health Care Power of Pier Hand;Living Will In Chart: No Chalk Cutter Attempted to Assist with AD Completion: Yes [...] Information Primary Emergency Contact: Dipti Correa Address: [address] [place] [address] OF [facility] Mobile Relation: Spouse Supportive Patient Contact:: [...] for meeting these needs: Outpatient therapy at [facility] Patient's perception of need for this admission: hip replacement Medication Adherance I am convinced of the importance of my prescription medication: 0 - Agree Completely I worry that my prescription medication will do more harm than good to me : 0 - Disagree Completely I feel financially burdened by my [id number] expenses for my prescription medication:: 0 - Disagree Completely Risk Score: 0 Patient is categorized as: Low risk < 2 Are you interested in bedside delivery of your medications? Yes Is Patient Psychosocially Complex?: No ASSESSMENT AND PLAN: Medical Needs: Medical Needs: None Psychosocial Needs: Psychosocial Needs: None FREEDOM OF CHOICE EXPLAINED: [place] of Choice Given: No Reason Not Given: No placements necessary POTENTIAL TRANSITION PLANS Outpatient Therapy Pt from home with spouse. Plan is Outpatient PT at [facility]. Patient does not have an appointment. Call placed to [facility] to schedule appointment. Waiting for return call. SIGNATURE: Ashley Sands RN PATIENT NAME: Alisia Correa DATE: May 04, 2020 TIME: 10:14 AM PAGER/CONTACT #: [phone] [facility] CBCon 05-04-2020 Absolute nRBC <0.01 [facility]0.01 [facility] width (RBC) [Ratio] 14.1 % Normal 11.5-15.0 [facility] Hematocrit (Bld) [Volume fraction] 39.3 % Normal 39.0-51.0 [facility] Hemoglobin (Bld) [Mass/Vol] 12.6 g/dL Low 13.0-17.0 [facility] MCH (RBC) [Entitic mass] 30.1 pG Normal 26.0-34.0 [facility] MCHC (RBC) [Mass/Vol] 32.1 g/dL Normal 30.5-36.0 [facility] MCV (RBC) [Entitic vol] 94.0 fL Normal 80.0-100.0 [facility] Platelet mean volume (Bld) [Entitic vol] 12.8 fL High 9.0-12.7 [facility] l Platelets (Bld) [#/Vol] 134 10*3/uL Low 150-400 [facility] RBC (Bld) [#/Vol] 4.18 10*6/uL Low 4.20-6.00 [facility] WBC (Bld) [#/Vol] 7.60 10*3/uL Normal 3.70-11.00 [facility] NURSING PROGon 05-04-2020 NURSING PROG HNO ID: [id number] Author: Renae (Rn) ALFONSO Greco Service: ? Author Type: Registered Nurse Type: Nursing Progress Note Filed: 05/04/2020 8:04 PM Note Text: Nursing Progress Note Patient Name: Alisia Correa Patient Location: AV/ Daily Note: 1000 Pt awake oriented this [...] note was completed by: Renae Greco RN [facility] PLAN OF CAREon 05-04-2020 PLAN OF CARE HNO ID: [id number] Author: Rita Arias (Licensed Mortician) Service: ? Author Type: ? Type: Plan [...] ointment Commonly known as: BACTROBAN Rita Arias (Licensed Mortician) PAGER: yvan May 04, 2020 4:29 PM [facility] PROGRESSon 05-04-2020 PROGRESS HNO ID: [id number] Author: Steven Guevara Jr. Service: Orthopaedic Surgery [...] Dysphagia Psychosis Due to Parkinson's Disease ([facility]) Osteoarthritis of Left Hip Open Wound [...] 1751 -- 05/03/20 1800 pneumatic compression stockings (ak,tn) 05/03/20 1800 graduated compression stockings ([place], [place]) 05/03/20 1800 activity - mobilize patient (ak,tn) 05/03/20 1800 activity - mobilize patient (ak,tn) 05/03/20 1800 activity - mobilize patient ([place], [place]) VTE Prophylaxis: VTE prophylaxis appropriate POST OPERATIVE COMPLICATIONS: Complicated by: uneventful/none SIGNATURE: Steven Guevara Jr, MD PATIENT NAME: Alisia Correa DATE: May 04, 2020 TIME: 7:54 AM PAGER/CONTACT #: [phone] [facility] THERAPY NTon 05-04-2020 THERAPY NT HNO ID: [id number] Author: Nusrat JerryOt/Kali Gallegos Service: Occupational Therapy Author Type: Occupational Therapist Type: Therapy (PT/OT/Speech/Resp) Filed: 05/04/2020 1:20 PM Note Text: Occupational Therapy SERVICE DATE: 05/04/2020 SERVICE TIME: 1145 to 1251 ROOM: [place] [address] Recommended Discharge Disposition: Home Anticipated Discharge Needs: [...] of daily living (ADL) Interventions Provided: Evaluation;Self Long Term Management (15024) $ Evaluation-Low (97597) Billed Units: 1 unit Self Long Term Management (65990) Treatment Minutes: 51 3 units Skilled Intervention(s): [...] car transfer with instructions given to have telephone directory distributor driver (as Patient is not allowed to [...] Patient Lives With: Spouse Assistance Available: multimedia services manager(spouse works multimedia services manager but workplace is nearby and flexib ) Entry To Home: With Rail;Stairs Number Of Stairs Into Home: 2 Number Of Stairs To Bed/Bath: 1st floor bed and bath Tub/Shower Type: WIS with shower chair, grab bars, HHS Laundry: 1ST FLOOR Equipment Owned: Cane;Hand Held Shower;Grab Bars-Shower;Standard Walker;Commode-Raised;Tammy wer Chair;Lift Chair;ADL Kit;Tobacco Sample Puller;Wheeled Walker Prior Functional Level: Within Functional Limits Prior Functional Level Comments: PUBLIC OPINION SURVEY TAKER, 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, IADL's, amb usually without AD, but had to use RW 1 week PUBLIC OPINION SURVEY TAKER due to being off OA meds OBJECTIVE: [...] DATE: May 04, 2020 TIME: 1:08 PM [facility] THERAPY NT HNO ID: [id number] Author: Massiel JerryPtSajan Russell PT Service: Physical Therapy Author Type: Physical Therapist Type: Therapy (PT/OT/Speech/Resp) Filed: 05/04/2020 11:30 AM Note Text: Physical Therapy Evaluation SERVICE DATE: 05/04/2020 SERVICE TIME: 1008 to 1050 ROOM: [place] [address] Recommended Discharge Disposition: Outpatient Physical Therapy Anticipated [...] Diagnosis: Reduced mobility-other Interventions Provided: Evaluation;Therapeutic Exercise (03984);Therapeutic Activity (92361);Gait Training (36507) $ Evaluation-Moderate (02908) Billed Units: 1 unit Therapeutic Exercise (43538) Treatment Minutes: 6 Skilled Intervention(s): Instruction in therapeutic exercise per THR protocol: AP, QS, GS, HS, abd, LAQ Verbal and tactile cuing provided for each. Written handouts provided and reviewed with patient today Therapeutic Activity (91161) Treatment Minutes: 10 1 unit Skilled Intervention(s): [...] 2/3 precautions without cues today Gait Training (81842) Treatment Minutes: 11 1 unit Skilled Intervention(s): [...] Patient Lives With: Spouse Assistance Available: multimedia services manager(spouse works multimedia services manager but workplace is nearby and flexib ) Entry To Home: With Rail;Stairs Number Of Stairs Into Home: 2 Number Of Stairs To Bed/Bath: 1st floor bed and bath Tub/Shower Type: WIS with shower chair, grab bars, [facility] Laundry: 1ST FLOOR Equipment Owned: Cane;Hand Held Shower;Grab Bars-Shower;Standard Walker;Commode-Raised;Tammy wer Chair;Lift Chair;ADL Kit;Tobacco Sample Puller;Wheeled Walker Prior Functional Level: Within Functional Limits Prior Functional Level Comments: PUBLIC OPINION SURVEY TAKER, 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, IADL's, amb usually without AD, but had to use RW 1 week PUBLIC OPINION SURVEY TAKER due to being off OA meds OBJECTIVE: [...] DATE: May 04, 2020 TIME: 11:21 AM [facility] ANES POSTPROC EVALon 020 ANES POSTPROC EVAL HNO ID: [id number] Author: Jac Leon Service: ? Author Type: Physician Type: Anesthesia Postprocedure Evaluation Filed: 05/03/2020 4:28 PM Note Text: POST ANESTHESIA EVALUATION NOTE : 1960 Procedure Summary Date: 05/03/20 Room / Location: [place] [address] / OR Anesthesia Start: 1245 Anesthesia Stop: 1545 [...] May 03, 2020 TIME: 4:28 PM CSN: [id number] [facility] ANES PRE-OPon 05-03-2020 ANES PRE-OP HNO ID: [id number] Author: Coreen Ryan Service: ? Author Type: [...] Surgery/Procedure. SIGNATURE: Coreen Ryan MD PATIENT NAME: Aliisa Correa DATE: May 03, 2020 TIME: 10:37 AM CSN: [id number] [facility] Basic Metabolic Panlon 05-03 Anion gap [Moles/Vol] 8 mmol/L Low 9-18 [facility] Calcium [Mass/Vol] 8.7 mg/dL Normal 8.5-10.2 [facility] ospital Chloride [Moles/Vol] 105 mmol/L Normal 97-105 [facility] CO2 [Moles/Vol] 25 mmol/L Normal 22-30 [facility] Creatinine [Mass/Vol] 1.20 mg/dL Normal 0.73-1.22 [facility] eGFR- Amer. >60 [facility] GFR/1.73 sq M predicted among non-blacks MDRD (S/P/Bld) [Vol rate/Area] mL/min/{1.73_m2} [facility] Comment on above: Result Comment: eGFR [...] ospital Comment on above: Result Comment: The [place] [employer] (ADA) provides guidance for cutoff [...] Standards of Medical Care in Diabetes 2016, [place] [employer]. Diabetes Care. 2016.39(Suppl 1). Potassium [Moles/Vol] 4.3 mmol/L Normal 3.7-5.1 [facility] Sodium [Moles/Vol] 138 mmol/L Normal 136-144 [facility] ospital Urea nitrogen [Mass/Vol] 18 mg/dL Normal 9-24 [facility] CBCon 05-03-2020 Absolute nRBC <0.01 Normal <0.01 [facility] Eryth[facility] distribution width (RBC) [Ratio] 14.1 % Normal 11.5-15.0 [facility] Hematocrit (Bld) [Volume fraction] 43.9 % Normal 39.0-51.0 [facility] Hemoglobin (Bld) [Mass/Vol] 14.3 g/dL Normal 13.0-17.0 [facility] MCH (RBC) [Entitic mass] 30.2 pG Normal 26.0-34.0 [facility] MCHC (RBC) [Mass/Vol] 32.6 g/dL Normal 30.5-36.0 [facility] MCV (RBC) [Entitic vol] 92.8 fL Normal 80.0-100.0 [facility] Platelet mean volume (Bld) [Entitic vol] 11.7 fL Normal 9.0-12.7 [facility] Platelets (Bld) [#/Vol] 145 10*3/uL Low 150-400 [facility] RBC (Bld) [#/Vol] 4.73 10*6/uL Normal 4.20-6.00 [facility] WBC (Bld) [#/Vol] 9.79 10*3/uL Normal 3.70-11.00 [facility] CONSULTon 05-03-2020 CONSULT HNO ID: [id number] Author: Henry Collins Service: Hospital Medicine Author Type: Physician Type: Consults Filed: 05/03/2020 8:50 PM Note Text: DEPARTMENT OF HOSPITAL MEDICINE INITIAL CONSULT SERVICE DATE: 05/03/2020 SERVICE TIME: 7:44 PM Primary Care Physician: Ellen Crabtree, DO NIGHT AND WEEKEND COVERAGE: KARELY COVERAGE: Days: [phone], please contact day attending provider ( please page admission pager [phone] to find out day attending provider for [...] Laterality Date - COLONOSCOP W/ OR W/O [facility] Colonoscopy - EGD W/O OR W/BRUSH/WASH 2016 [...] SCM 08/06/2010 Performed by GEORGINA SEAMAN at [facility] - TOTAL KNEE REPLACEMENT Left 2012 with [...] 03, 2020 TIME: 7:44 PM PAGER/CONTACT #: [facility] NURSING PROGon 05-03-2020 NURSING PROG HNO ID: [id number] Author: Renae (Rn) ALFONSO Greco Service: ? Author Type: Registered Nurse Type: Nursing Progress Note Filed: 05/03/2020 7:58 PM Note Text: Nursing Progress Note Patient Name: Alisia Correa [facility] Daily Note: Received pt from PACU in stable condition at 1745. Bilateral ppp, toes warm and mobile, denies numbness or tingling, Abductor pillow in place. Vitals stable. Will monitor. This note was completed by: Renae Greco RN [facility] OPERATIVE NOon 05-03-2020 OPERATIVE NO HNO ID: [id number] Author: Steven Guevara Jr. Service: Orthopaedic Surgery Author Type: Physician Type: Operative Report Filed: 05/03/2020 3:08 PM Note Text: [facility] OPERATIVE REPORT PATIENT NAME: Alisia Correa AGE: [age] year old LOG ID: [id number] Surgery Date: 05/03/2020 SURGEON: Steven Guevara M.D. SET BUILDER: Vj Jorge PA-C, his assistance consisted of [...] banked allogenic blood if medically necessary. IMPLANTS: [employer] Orthopaedics Total Hip System SIZE TYPE Acetabulum [...] dislocated. Proximal femoral osteotomy was performed. The call box wirer osteotome was utilized to lateralize the starting [...] DATE: May 03, 2020 TIME: 2:57 PM [facility] PROGRESS HNO ID: [id number] Author: Tracey Khan (Rt) Service: Radiology Author Type: Management Coordinator Type: Progress Notes Filed: 05/03/2020 4:01 PM [...] RT Kathy May 03, 2020 4:01 PM [facility] PROGRESS HNO ID: [id number] Author: Steven Guevara Jr. Service: Orthopaedic Surgery Author Type: Physician Type: Progress Notes Filed: 05/03/2020 8:02 AM Note Text: The patient was offered a surgery/procedure at a [facility] facility. The surgeon/proceduralist and patient have [...] as indicated on the consent form. [facility] PT EDon 05-03-2020 PT ED HNO ID: [id number] Author: Kaylee (Rn) ALFONSO Sunshine Service: ? [...] None PHYSICAL LIMITATIONS AFFECTING LEARNING: None [facility] SURGICAL PATHOLOGYon 020 SURGICAL PATHOLOGY Specimen originated from [facility] Specimen #: [id number] Submitting Physician: STEVEN GUEVARA JR, MD FINAL [...] reamings. The additional tissue appears grossly unremarkable. Hydrological Technical Officer sections are submitted in formalin as follows: A1 soft tissue, A2 bone after a period of decalcification. [facility]/adb 05/04/2020 [place] [address] Date of Report: 05/09/2020 Date of Procedure: 05/03/2020 Date of Receipt: 05/03/2020 Submitted by: STEVEN GUEVARA JR, MD Location: [facility] Diagnostic interpretation performed at [facility], [address] [place] [address]. CLIA Number: [id number] Normal [facility] Reference Lab Comment on above: Performed [...] IMPRESSION: Status post hip arthroplasty, normal alignment Brush Fabrication Supervisor: ARPIT Transcribe Date/Time: May 03 2020 4:05P Dictated by : JUAN LUIS RUSSELL MD This examination was interpreted and the report reviewed and electronically signed by: JUAN LUIS RUSSELL MD on May 03 2020 4:07PM EST [id number] [facility] Tele[facility] (AVPRAD) ----- ALISIA CORREA ([id number]) 1960 M Date Time Provider Department 05/02/20 [...] Hives Date Reviewed: 04/24/2020 [facility]: [facility] - Fully Assessed Reason for [...] More... Hyperlipidemia [E78.5] 12/07/2017 More... Ulcerative lesion [ODC4978] 12/07/2017 07/21/2019 Shoulder arthritis [M19.019] 12/29/2017 Status [...] Encounter Status:Closed by VJ JORGE on 05/02/20 [facility] NURSING PROGon 04-25-2020 NURSING PROG HNO ID: [id number] Author: Niyah Hinkle (Rn) [place] RN Service: Anesthesiology Author Type: Registered Nurse Type: [...] Golden RN April 30, 2020 2:36 PM [facility] Type and SCR (30D)on 07-07-2 020 ABO/RH(D) Negative [facility] HOSPon 04-12-2020 HOSP Patient:Eddi Correa MRN: [...] ORAL TbSR Admission/Clinic Administered Medications as of 7/16/20: lidocaine 10 mg/mL (1 %) 1-2 mg [...] of unknown significance) [D47.2] PD (Parkinson's disease) (HCC) [G20] Dysphagia [R13.10] Psychosis due to Parkinson's [...] is scheduled for post-op Physical Therapy at [facility] ([phone])on 05/07/20 @ 2:45. They want patient to arrive 10 to 15 min early. Fax PT order to [phone]. [facility] Basic Metabolic Panlon 11-09 Anion gap [Moles/Vol] 8 mmol/L Low 9-18 [facility] Calcium [Mass/Vol] 8.6 mg/dL Normal 8.5-10.2 [facility] Chloride [Moles/Vol] 101 mmol/L Normal 97-105 [facility] CO2 [Moles/Vol] 30 mmol/L Normal 22-30 [facility] Creatinine [Mass/Vol] 1.02 mg/dL Normal 0.73-1.22 [facility] eGFR- Amer. >60 [facility] GFR/1.73 sq M predicted among non-blacks MDRD (S/P/Bld) [Vol rate/Area] mL/min/{1.73_m2} [facility] Comment on above: Result Comment: eGFR [...] GFR. Glucose [Mass/Vol] 110 mg/dL High 74-99 [facility] Comment on above: Result Comment: The [place] [employer] (ADA) provides guidance for cutoff [...] Standards of Medical Care in Diabetes 2016, [place] [employer]. Diabetes Care. 2016.39(Suppl 1). Potassium [Moles/Vol] 4.1 mmol/L Normal 3.7-5.1 [facility] Sodium [Moles/Vol] 139 mmol/L Normal 136-144 [facility] Urea nitrogen [Mass/Vol] 18 mg/dL Normal 9-24 [facility] CBCon 11-09-2019 Absolute nRBC <0.01 Normal <0.01 [facility] E[facility]th[facility] distribution width (RBC) [Ratio] 13.7 % Normal 11.5-15.0 [facility] Hematocrit (Bld) [Volume fraction] 39.6 % Normal 39.0-51.0 [facility] Hemoglobin (Bld) [Mass/Vol] 12.5 g/dL Low 13.0-17.0 [facility] MCH (RBC) [Entitic mass] 30.2 pG Normal 26.0-34.0 [facility] MCHC (RBC) [Mass/Vol] 31.6 g/dL Normal 30.5-36.0 [facility] MCV (RBC) [Entitic vol] 95.7 fL Normal 80.0-100.0 [facility] Platelet mean volume (Bld) [Entitic vol] 11.8 fL Normal 9.0-12.7 [facility] Platelets (Bld) [#/Vol] 129 10*3/uL Low 150-400 [facility] RBC (Bld) [#/Vol] 4.14 10*6/uL Low 4.20-6.00 [facility] WBC (Bld) [#/Vol] 6.62 10*3/uL Normal 3.70-11.00 [facility] CONSULT PROGon 11-09-2019 CONSULT PROG HNO ID: [id number] Author: Lenora Alarcon Service: Hospital Medicine Author [...] Associate Staff, Department of Hospital Medicine Clinical Sales And Marketing Administratorfinal inspector shuttle Hospital Medicine, [facility] Pager [phone] / [phone] [facility] NURSING PROGon 11-09-2019 NURSING PROG HNO ID: [id number] Author: Renae (Rn) ALFONSO Greco Service: ? [...] note was completed by: Renae Greco RN [facility] PLAN OF CAREon 11-09-2019 PLAN OF CARE HNO ID: [id number] Author: Rita Arias (Licensed Mortician) Service: ? Author Type: Management Coordinator Type: Plan of Care Filed: 11/09/2019 10:31 AM Note Text: SPECIAL TRACKWORK [employer] BEDSIDE DELIVERY SURVEY 1. Patient to use [facility] Bedside Delivery - NO prefer own pharmacy Insurance Information as follows: 2. Insurance card on file - N/A 3. Credit card for payment - N/A [facility] PROGRESSon 11-09-2019 PROGRESS HNO ID: [id number] Author: Demetris Naik Service: ? Author Type: Physician [employer] Type: Progress Notes Filed: 11/09/2019 7:49 AM [...] discharge planning-plan for DC home today with [facility] if independent with physical therapy ACTIVE PROBLEM [...] Pain Syndrome Copd With Chronic Bronchitis ([facility]) Arthritis of Knee Primary Osteoarthritis of [...] of Unknown Significance) Pd (Parkinson's Disease) ([facility]) Dysphagia Psychosis Due to Parkinson's Disease ([facility]) Osteoarthritis of Left Hip Open Wound [...] 0747 -- 11/08/19 1315 pneumatic compression stockings (ak,oh) 11/08/19 1315 graduated compression stockings (ak,tn) 11/08/19 1315 graduated compression stockings (ak,tn) 11/08/19 1315 activity - mobilize patient (ak,oh) 11/08/19 1315 activity - mobilize patient (ak,oh) 11/08/19 1315 activity - mobilize patient (ak,tn) VTE Prophylaxis: VTE prophylaxis appropriate POST OPERATIVE COMPLICATIONS: Complicated by: uneventful/none SIGNATURE: Demetris Naik PA-C PATIENT NAME: Alisia Correa DATE: November 09, 2019 TIME: 7:48 AM PAGER/CONTACT #: [phone] [facility] PT EDon 11-09-2019 PT ED HNO ID: [id number] Author: Shelley Givens (Pharmacist) Service: Pharmacy Author [...] medications were sent to e- [facility] [id number] [facility] - [phone] [id number] [facility], [facility] [address] ? aspirin, enteric coated 81 mg EC tablet ? oxyCODONE IR 5 mg immediate release tablet You can get these medications from any pharmacy You don't need a prescription for these medications ? acetaminophen 325 mg tablet [facility] PT ED HNO ID: [id number] Author: Shelley Givens (Pharmacist) Service: Pharmacy Author [...] understanding of topic SHELLEY GIVENS, PHARMACIST [facility] THERAPY NTon 11-09-2019 THERAPY NT HNO ID: [id number] Author: Oumou Witt (Pt) Fabio Service: Physical Therapy Author Type: Physical Therapist Type: Therapy (PT/OT/Speech/Resp) Filed: 11/09/2019 2:56 PM Note Text: Physical Therapy Treatment SERVICE DATE: 11/09/2019 SERVICE TIME: 1105 to 1150 ROOM: [place] [address] Recommended Discharge Disposition: Outpatient Physical Therapy Anticipated [...] Diagnosis: Reduced mobility-other Interventions Provided: Gait Training (57467);Therapeutic Exercise (81355) Therapeutic Exercise (03339) Treatment Minutes: 15 1 unit Skilled Intervention(s): [...] 3x/day, 2 sets for 10 Gait Training (52010) Treatment Minutes: 30 2 units Skilled Intervention(s): [...] DATE: November 09, 2019 TIME: 2:52 PM [facility] THERAPY NT HNO ID: [id number] Author: Katharina JerryOtSajan Moser Service: Occupational Therapy Author Type: Occupational Therapist Type: Therapy (PT/OT/Speech/Resp) Filed: 11/09/2019 2:29 PM Note Text: Occupational Therapy Evaluation SERVICE DATE: 11/09/2019 SERVICE TIME: 849 ROOM: [place] [address] Recommended Discharge Disposition: Home Anticipated Discharge Needs: [...] living (ADL);Muscle Weakness (generalized) Interventions Provided: Evaluation;Self Long Term Management (41180) $ Evaluation-Low (76105) Billed Units: 1 unit Self Long Term Management (86432) Treatment Minutes: 38 3 units Skilled Intervention(s): [...] body dressing. Instructions and demonstration with a hydrometeorological technician, sock aide, dressing stick and long handled [...] reviewed; Deny admitted for surgery, s/p Left ADYTON on 11/08/2019 Dr Guevara Reason for Occupational [...] complete details for this therapy evaluation/treatment. SIGNATURE: Katharina Moser OTR/L PATIENT NAME: Alisia Correa DATE: November 09, 2019 TIME: 12:33 PM [facility] ANES Brian 11-08-2019 ANES POST HNO ID: [id number] Author: Ashley Guerrier Service: Anesthesiology Author Type: [...] 08, 2019 TIME: 1:16 PM PAGER/CONTACT #: [facility] ANES PREOPon 11-08-2019 ANES PREOP HNO ID: [id number] Author: Ashley Guerrier Service: Anesthesiology Author Type: [...] Laterality Date - COLONOSCOP W/ OR W/O [facility] SPEC Colonoscopy - EGD W/O OR [...] November 08, 2019 TIME: 8:55 AM CSN: [id number] [facility] Basic Metabolic Panlon 11-08 Anion gap [Moles/Vol] 11 mmol/L Normal 9-18 [facility] Calcium [Mass/Vol] 8.9 mg/dL Normal 8.5-10.2 [facility] Chloride [Moles/Vol] 106 mmol/L High 97-105 [facility] CO2 [Moles/Vol] 25 mmol/L Normal 22-30 [facility] Creatinine [Mass/Vol] 0.95 mg/dL Normal 0.73-1.22 [facility] eGFR- Amer. >60 [facility] GFR/1.73 sq M predicted among non-blacks MDRD (S/P/Bld) [Vol rate/Area] mL/min/{1.73_m2} [facility] Comment on above: Result Comment: eGFR [...] ospital Comment on above: Result Comment: The [place] [employer] (ADA) provides guidance for cutoff [...] Standards of Medical Care in Diabetes 2016, [place] [employer]. Diabetes Care. 2016.39(Suppl 1). Potassium [Moles/Vol] 4.3 mmol/L Normal 3.7-5.1 [facility] Sodium [Moles/Vol] 142 mmol/L Normal 136-144 [facility] Urea nitrogen [Mass/Vol] 23 mg/dL Normal 9-24 [facility] ID: [id number] Author: Ashley (Rn) ALFONSO Sands Service: Care Management Author Type: Registered Nurse Type: Care Mgt Initial Assessment Filed: 11/08/2019 3:02 PM Note Text: CARE MANAGEMENT: ASSESSMENT AND DISCHARGE PLAN SERVICE DATE: November 08, 2019 SERVICE TIME: 3:01 PM PRIMARY CARE PHYSICIAN: Ellen Crabtree DO ADMISSION STATUS: Extended Recovery Needs Prior to Discharge: OT/PT Evaluation MEDICAL: Patient/Hydrological Technical Officer Stated Goals: To have reduction in pain;To have reduction in symptoms;To improve my functional status;To return home to life as it was Health Insurance: None Health Issues Impacting Discharge Plan: Newly diagnosed Newly Diagnosed: Hip Replacement Last Discharge Date: 03/17/18 Is this Within the Past 30 days? Last discharge within 30 days: No Advance Directive: Current Advance Directive: Health Care Power of Pier Hand;Living Will In Chart: No Chalk Cutter Attempted to Assist with AD Completion: Yes [...] Extended Emergency Contact Information Primary Emergency Contact: SunnyDipti Address: [address] [place] [address] Mobile Relation: Spouse Contact Resources: Family Social [...] Completely I feel financially burdened by my xfo-jp-nlgsba expenses for my prescription medication:: 0 - Agree Somewhat Risk Score: 0 Patient is categorized as: Low risk < 2 Are you interested in bedside delivery of your medications? Yes Is Patient Psychosocially Complex?: No ASSESSMENT AND PLAN: Medical Needs: Medical Needs: None Psychosocial Needs: Psychosocial Needs: None FREEDOM OF CHOICE EXPLAINED: [place] of Choice Given: No Reason Not Given: No placements necessary POTENTIAL TRANSITION PLANS Outpatient Therapy Patient has equipment. Patient is scheduled for outpatient therapy on 11/11 at [facility]. SIGNATURE: Ashley Sands RN PATIENT NAME: Alisia Correa DATE: November 08, 2019 TIME: 3:01 PM PAGER/CONTACT #: [phone] [facility] CBCon 11-08-2019 Absolute nRBC <0.01 Normal <0.01 [facility] Erythrocyte distribution width (RBC) [Ratio] 13.9 % Normal 11.5-15.0 [facility] Hematocrit (Bld) [Volume fraction] 44.3 % Normal 39.0-51.0 [facility] Hemoglobin (Bld) [Mass/Vol] 14.2 g/dL Normal 13.0-17.0 [facility] MCH (RBC) [Entitic mass] 30.4 pG Normal 26.0-34.0 [facility] MCHC (RBC) [Mass/Vol] 32.1 g/dL Normal 30.5-36.0 [facility] MCV (RBC) [Entitic vol] 94.9 fL Normal 80.0-100.0 [facility] Platelet mean volume (Bld) [Entitic vol] 11.7 fL Normal 9.0-12.7 [facility] l Platelets (Bld) [#/Vol] 159 10*3/uL Normal 150-400 [facility] RBC (Bld) [#/Vol] 4.67 10*6/uL Normal 4.20-6.00 [facility] WBC (Bld) [#/Vol] 10.50 10*3/uL Normal 3.70-11.00 [facility] CONSULTon 11-08-2019 CONSULT HNO ID: [id number] Author: Bhupendra Chacon Service: Podiatry Author Type: [...] POA: Yes 3. COPD with chronic bronchitis ([facility]) POA: Yes 4. Hyperlipidemia POA: Yes 5. PD (Parkinson's disease) ([facility]) POA: Yes 6. Nicotine use disorder, F17.2 [...] Laterality Date - COLONOSCOP W/ OR W/O [facility] SPEC Colonoscopy - EGD W/O OR [...] intact Lower extremity tested with 10 gram [place]-Nichole monofilament No evidence of diabetic peripheral sensory [...] to be well informed. Bhupendra Chacon DPM [facility] CONSULT HNO ID: [id number] Author: SHRAVAN Christian Service: Hospital Medicine Author Type: Physician Auctioneer Automobile Type: Consults Filed: 11/08/2019 2:36 PM Note Text: DEPARTMENT OF HOSPITAL MEDICINE INITIAL CONSULT SERVICE DATE: 11/08/2019 SERVICE TIME: 1:14 PM Primary Care Physician: Ellen Crabtree DO NIGHT AND WEEKEND COVERAGE: Days: [phone], please page me for patient issues. Nights: [phone], please page [facility] Hospitalist Night coverage pager [phone] REASON FOR CONSULT: Medical Management REQUESTING PHYSICIAN: [...] with ambulation. States his son is a tow boat captain but is unaware of his current skin [...] Laterality Date - COLONOSCOP W/ OR W/O [facility] SPEC Colonoscopy - EGD W/O OR [...] - Levaquin [Levofloxa* Hives REVIEW OF SYSTEMS: FUSING FURNACE LOADER: history of Parkinson' s Disease RESP: history [...] - Hypoglycemia protocol COPD with chronic bronchitis ([facility]) POA: Yes Assessment AND Plan: - Chronic, stable - Continue home meds Hyperlipidemia POA: Yes Assessment AND Plan: - Continue home meds PD (Parkinson's disease) ([facility]) POA: Yes Assessment AND Plan: - Chronic, [...] Device and Early Ambulation Disposition: Home with [facility] Plan of care discussed with: Provider, RN, Patient SIGNATURE: SHRAVAN Christian PATIENT NAME: Alisia Correa DATE: November 08, 2019 TIME: 1:15 PM PAGER/CONTACT #: [phone] [facility] NURSING PROGon 11-08-2019 NURSING PROG HNO ID: [id number] Author: Jessica (Rn) ALFONSO Joe Service: Nursing Author Type: Registered Nurse Type: Nursing Progress Note Filed: 11/08/2019 7:25 PM Note Text: Nursing Progress Note Patient Name: Alisia Correa Patient Location: [place] [address] [address] Daily Note: 1330 Pt admitted to room [...] note was completed by: Jessica Joe RN [facility] OPERATIVE NOon 11-08-2019 OPERATIVE NO HNO ID: [id number] Author: Steven Guevara Jr. Service: Orthopaedic Surgery Author Type: Physician Type: Operative Report Filed: 11/08/2019 2:08 PM Note Text: [facility] OPERATIVE REPORT PATIENT NAME: Alisia Correa AGE: [age] year old LOG ID: [id number] Surgery Date: 11/08/2019 SURGEON: Steven Guevara M.D. SET BUILDER: Vj Jorge PA-C, his assistance consisted of [...] banked allogenic blood if medically necessary. IMPLANTS: [employer] Orthopaedics Total Hip System SIZE TYPE Acetabulum [...] dislocated. Proximal femoral osteotomy was performed. The call box wirer osteotome was utilized to lateralize the starting [...] November 08, 2019 TIME: 11:07 AM [facility] PLAN OF CARE 11-08-2019 PLAN OF CARE O ID: [id number] Author: Shelley Givens (Pharmacist) Service: Pharmacy Author [...] Itching - Levaquin [Levofloxa* Hives Preferred Pharmacy: [facility] [place] [address] [address] [facility] [phone] Current PUBLIC OPINION SURVEY TAKER Medications: Prior to Admission medications as of [...] GIVENS, PHARMACIST November 08, 2019 1:53 PM [facility] PROGRESSon 11-08-2019 PROGRESS HNO ID: [id number] Author: Niesha JerryRt) Elpidio Cobb Service: ? Author Type: Management Coordinator Type: Progress Notes Filed: 11/08/2019 12:05 PM [...] Stiles RT November 08, 2019 12:05 PM [facility] PT EDon 11-08-2019 PT ED HNO ID: [id number] Author: Catherine (Rn) Sb RN Service: Nursing Author Type: Registered Nurse [...] Signed By: Catherine Basurto RN In Department: [facility] SURGERY [facility] SURGICAL PATHOLOGYon 020 SURGICAL PATHOLOGY Specimen originated from [facility] Specimen #: [id number] Submitting Physician: STEVEN GUEVARA JR, MD FINAL [...] Sectioning does not reveal any avascular necrosis. Hydrological Technical Officer sections are submitted as follows: A1 soft tissue, A2 bone submitted after decalcification. BF/slb 11/08/2019 Gross examination performed at [facility], [address] [place] [address] Date of Report: 11/14/2019 Date of Procedure: 11/08/2019 Date of Receipt: 11/08/2019 Submitted by: STEVEN GUEVARA JR, MD Location: [facility] Diagnostic interpretation performed at [facility], [address] [place] [address]. CLIA Number: [id number] Normal [facility] Reference Lab Comment on above: Performed By: #### S #### See report for performing lab information. THERAPY NTon 11-08-2019 THERAPY NT HNO ID: [id number] Author: Oumou Witt (Pt) Fabio Service: Physical Therapy Author Type: Physical Therapist Type: Therapy (PT/OT/Speech/Resp) Filed: 11/08/2019 2:54 PM Note Text: Physical Therapy Evaluation SERVICE DATE: 11/08/2019 SERVICE TIME: 1325 to 1415(8 min for pharmacist to review meds) ROOM: [place] [address] Recommended Discharge Disposition: Outpatient Physical Therapy Recommended [...] Diagnosis: Reduced mobility-other Interventions Provided: Evaluation;Therapeutic Exercise (14639);Gait Training (67185);Therapeutic Activity (24230) $ Evaluation-Low (67130) Billed Units: 1 unit Therapeutic Exercise (36971) Treatment Minutes: 12 1 unit Skilled Intervention(s): [...] position: LAQ X10 B LE Therapeutic Activity (29341) Treatment Minutes: 3 Skilled Intervention(s): Instructed patient in supine to sit pushing with upper extremities to sit up Gait Training (67789) Treatment Minutes: 12 1 unit Skilled Intervention(s): [...] Type: WIS with shower chair, grab bars, [facility] Laundry: 1ST FLOOR Equipment Owned: Cane;Hand [...] DATE: November 08, 2019 TIME: 2:49 PM [facility] XR PELVIS 1V APon 11-08-2019 [...] IMPRESSION: Left total hip prosthesis in place. Brush Fabrication Supervisor: PSCB Transcribe Date/Time: Nov 08 2019 12:43P Dictated by : LIGIA EDWARDS MD This examination was interpreted and the report reviewed and electronically signed by: LIGIA EDWARDS MD on Nov 08 2019 12:44PM EST [id number] [facility] NURSING PROGon 10-24-2019 NURSING PROG HNO ID: [id number] Author: Geneva JerryRn) ALFONSO Goins Service: Nursing Author Type: Registered Nurse Type: Nursing Progress Note Filed: 10/24/2019 1:43 PM Note Text: PACC Nurse Progress Note History AND Physical: PACC Visit Date: 10-18-19 Original HANDP Date: N/A ED visit Date: N/A Outside HANDP Scanned Date: N/A Labs Within Last 6 Months: CBC: 10-18-19 BMP/CMP: Date 10-18-19 PT: Date 10-18-19 UA: Date 10-18-19 Urine C+S: Date 10-18-19 treated by provider STAAMP: 08-18-19 positive [...] Goins RN October 24, 2019 1:40 PM [facility] Type and SCR (30D)on 019 ABO/RH(D) Negative [facility] CNCOon 01-01-2018 CNCO Letter TextChajoel Correa Yokftkzr9[address] [place], [place] [address]Madelainejoel Correa[address] [address]Jwxj Mr. Correa:The nurses and staff of the 5th floor Orthopedic nursing unit at [facility], [facility], hope this letter finds you feelingwell [...] free to contact me, Dianna Villarreal at [phone] [email or web address], you will receive a survey in the mail asking you to rate thecare you received while in the hospital. Please take the time to completeand send back the survey, as it is essential to our continued success. Ipersonally review all the results and would appreciate your feedback.Thank you in advance for your participation and thank you for choosing [facility] for your healthcare needs. Sincerely,Dianna Villarreal, MSN, RNNurse Rshdzsz9dx Floor OrthopedicHammond General [phone] Normal [facility] Basic Metabolic Panlon 12-31 Anion gap 9 mmol/L Normal 0-15 [facility] Calcium 8.3 mg/dL Low 8.5-10.5 [facility] Chloride 104 mmol/L Normal 98-110 [facility] CO2 25 mmol/L Normal 23-32 [facility] Creatinine 0.98 mg/dL Normal 0.7-1.4 [facility] Glucose mass conc 125 mg/dL High 65-100 [facility] Potassium molar conc 3.5 mmol/L Normal 3.5-5.0 [facility] Sodium 138 mmol/L Normal 135-146 [facility] Urea nitrogen 15 mg/dL Normal 8-25 [facility] CASE MANAGEMon 12-31-2017 CASE MANAGEM HNO ID: [id number] thor: Peace (Rn) JAMIE Bynumervice: Case ManagementAuthor [...] completed, dc summaryto be faxed, spoke w. DonyelleSIGNATURE: Peace Bynum RN PATIENT NAME: Alisia Sullivan: December 31, 2017 : 10:40 AM PAGER/CONTACT #: [phone] Normal [facility] CBCon 12-31-2017 Erythrocyte distribution width Auto Ratio (RBC) 15.3 % High 11.5-15.0 [facility] Erythrocytes (RBC) 3.45 10*6/uL Low 4.20-6.00 [facility] Hematocrit (HCT) 29.7 % Low 39.0-51.0 [facility] Hemoglobin mass conc (Bld) 9.6 g/dL Low 13.0-17.0 [facility] MCH 27.8 pG Normal 26.0-34.0 [facility] MCHC mass conc (RBC) 32.3 g/dL Normal 30.5-36.0 [facility] MCV 86.1 fL Normal 80.0-100.0 [facility] Platelet mean volume (PMV) 13.3 fL High 9.0-12.7 [facility] Platelets 112 10*3/uL Low 150-400 [facility] Comment on above: Result Comment: Samp le checked for a clot. WBC (Leukocytes) 6.00 10*3/uL Normal 3.70-11.00 [facility] CNDSon 12-31-2017 CNDS HNO ID: [id number] thor: Candida (Res) [facility] HospitalodService: Orthopaedic SurgeryAuthor Type: ResidentType: Discharge SummariesFiled: [...] surgery. [facility] Surgery was scheduledand on 12/29/2017 [...] was hemodynamically stable postoperatively.Relevant labs included:Hemoglobin (g/dL)Date Value12/31 9.6 (L)12/30/2017 9.7 (L)12/07/2017 13.4Hematocrit (%)Date Value03 29.7 (L)12/30/2017 29.6 (L)12/07/2017 43.5Discharge Antibiotics: None [...] in 10-14 days.Future AppointmentsDate Time Provider Department Burns01/06/2018 11:40 AM Cisco Silver Ariella VELÁSQUEZESMN NREST S Bldg01/12/2018 10:00 AM Evangelist JerryRn) [...] BM > 48 hrs.Print RX, Disp-120 mL, T-8brvgasnczc-efhuelekvg (SYMBICORT) 160-4.5 mcg/actuation inhalerInhale 2 Puffs as instructed twice daily.Med Update, R-0DULoxetine (CYMBALTA) 60 mg capsuleTake 1 capsule by mouth once daily.Med Update, R-0sucralfate (CARAFATE) 1 gram tabletTake 1 tablet by mouth four times daily.Med Update, T-7PPDPQHQS-LOQ/FA/LYCOPE N/LUTEIN (CENTRUM SILVER ULTRA MEN'S ORAL)Take 1 tablet by mouth once daily.Historical Medamitriptyline 25 mg ORAL tabletTake 50 mg by mouth daily at bedtime.Historical Med, R-0tamsulosin (FLOMAX) 0.4 mg ORAL Vu19Jldo 2 capsules by mouth daily at bedtime.Mail [...] December 31, 2017 : 6:26 AM PAGER: [phone] [facility] NURSING PROGon 12-31-2017 NURSING PROG HNO ID: [id number] thor: Charlotte Crowe (Rn) JAMIE Mcmillanervice: (none)Author Type: Registered NurseType: Nursing Progress NoteFiled: 12/31/2017 2:04 PMNote Text: Nursing Progress NotePatient Name: Alisia CorreaMRN: [id number] Location: [place] [address] [place] Dai ly Note:0800 awake, alert for am [...] was completed by: Charlotte Mcmillan RN [facility] PROGRESSon 12-31-2017 PROGRESS HNO ID: [id number] thor: Macrina ([facility]) DionService: General Internal MedicineAuthor Type: Nurse PractitionerType: Progress NotesFiled: 12/31/2017 5:07 PMNote Text:INPATIENT PROGRESS NOTESName: Alisia CorreaMRN: [id number] of Service: December 31, 2017SUBJECTIVE: Seen and [...] plan of care with Dr. Blair.Macrina Thomason, [facility] 20175:00 PM Normal [facility] PROGRESS HNO ID: [id number] thor: Bilal (Res) MahmoodService: Orthopaedic SurgeryAuthor Type: ResidentType: Progress NotesFiled: 12/31/2017 6:26 AMNote Text:ORTHOPAEDIC SURGERY PROGRESS NOTEPatient: Alisia CorreaMRN: [id number]: Procedure(s) (LRB):ARTHROPLASTY TOTAL SHOULDER; W/ GLENOID AND [...] labsMost recent imagingBilal MD Bi12/30/2017Orthopaedic Surgery PGY-2Pager: [phone] [facility] THERAPY NTon 12-31-2017 THERAPY NT HNO ID: [id number] thor: Cyn (Ot) PacoerService: Occupational TherapyAuthor Type: Occupational TherapistType: Therapy (PT/OT/Speech/Resp)Filed: 01/04/2018 4:15 PMNote Text:Occupational Therapy TreatmentSERVICE DATE: 12/31/2017SERVICE TIME: 1300 to 1338RO[address]: [id number] Discharge Disposition: HomeAnticipated Discharge Needs: Physical Assist [...] mobility-other;Decreased activities of dailyliving (ADL)Interventions Provided: Self Long Term Management (04833);TherapeuticExerci se (35634)Therapeutic Exercise (44104) Treatment Minutes: 101 unitSkilled Intervention(s): Instruction in therapeutic exerciseFacilitation of muscle control, optimal recruitment and alignmentEducation in PROM in supine to L shoulder to 90 degrees. present and follow instruction, with proper techniqueSelf Long Term Management (94217) Treatment Minutes: 282 unitsSkilled Intervention(s): Instructed in [...] December 31, 2017 : 2:25 PM PAGER: [phone] [facility] CASE MANAGEMon 12-30-2017 CASE MANAGEM HNO ID: [id number] thor: Peace (Rn) JAMIE Bynumervice: Case ManagementAuthor [...] 30, 2017 : 11:07 AM PAGER/CONTACT #: [phone] [facility] CASE MGT INIT Amira 2017 CASE MGT INIT JR HNO ID: [id number] thor: Peace (Rn) JAMIE Bynumervice: Case ManagementAuthor Type: Registered NurseType: Care Mgt Initial AssessmentFiled: 12/30/2017 11:07 AMNote Text:CARE MANAGEMENT: ASSESSMENT AND DISCHARGE PLANSERVICE DATE: 12/30/2017SERVICE TIME: 9:50amPRIMARY CARE PHYSICIAN:Ellen Crabtree, DOPhone: XSTNPFICP STATUS: InpatientNeeds Prior to Discharge: Ready for DischargeMEDICAL:Patient/ Hydrological Technical Officer Stated Goals:To improve my functional statusHealth Insurance: [facility] PLANMedical Scarbro ServicesHealth Issues Impacting Discharge Plan: TSALast Admission [...] - StraightHas the Patient Been in a Halfway Facility in the Past 30 days? NoSOCIAL:Living Arrangement: HomeLives With: SpouseFinancial Resources: Employed: .Primary Contact: Extended Emergency Contact InformationPrimary Emergency Contact: Declan Correaress: [phone] [place] [id number] Otlpaozk: SpouseSupportive: NoOther Important Patient Contacts: NoneCaregiver Assessment:Caregiver [...] - 0I feel financially burdened by my gch-gd-ffiafg expenses for myprescription medication: Agree mostly - [...] fallsPsychosocial Needs: NoneFREEDOM OF CHOICE EXPLAINED:N/APOTENTIAL TRANSITION XFLLZUntt84 yo male admitted for TSA. Patient is alert and oriented x3, followscommands and moves all extremities, reports iNDP PUBLIC OPINION SURVEY TAKER. Lives at home w.Spouse who is able to assist as needed. No falls or safety concerns athome. No snf or hhc in the past. PCP is Dr Crabtree whom patient follows [facility]. Therapy recommends home w./ HEP. Anticipate dc home post opday 1 pending medical and therapy clearance. Cm to cont to followSIGNATURE: Peace Bynum RN PATIENT NAME: Alisia CorreaDATE: December 30, 2017 : 11:00 AM PAGER/CONTACT #: [phone] Normal [facility] CBCon 12-30-2017 Erythrocyte distribution width Auto Ratio (RBC) 15.2 % High 11.5-15.0 [facility] Erythrocytes (RBC) 3.44 10*6/uL Low 4.20-6.00 [facility] Hematocrit (HCT) 29.6 % Low 39.0-51.0 [facility] Hemoglobin mass conc (Bld) 9.7 g/dL Low 13.0-17.0 [facility] MCH 28.2 pG Normal 26.0-34.0 [facility] mass conc (RBC) 32.8 g/dL Normal 30.5-36.0 [facility] MCV 86.0 fL Normal 80.0-100.0 [facility] Platelet mean volume (PMV) 12.6 fL Normal 9.0-12.7 [facility] Platelets 128 10*3/uL Low 150-400 [facility] Comment on above: Result Comment: Samp le checked for a clot. WBC (Leukocytes) 7.10 10*3/uL Normal 3.70-11.00 [facility] CONSULTon 12-30-2017 CONSULT HNO ID: [id number] thor: Reagan Mesaice: General Internal MedicineAuthor Type: PhysicianType: ConsultsFiled: 12/30/2017 9:00 PMNote Text:HISTORY AND PHYSICAL EXAMINATIONPATIENT NAME: Alisia CorreaMRN: [id number] DATE: 12/30/2017SERVICE TIME: 1030PRIMARY CARE PHYSICIAN: NANCY [...] HISTORYProcedure Laterality Date- COLONOSCOP W/ OR W/O [facility] SPEC Colonoscopy- EGD W/O OR W/BRUSH/WASH 2015 EGD- HAND SURGERY HX Right- MAL LESION FACE,EAR,EYEL 0.6-1CM 9/9/10 Performed by GEORGINA SEAMAN at [facility]- [...] meals and at bedtime. Disp: Rfl: 12/28/2017 on7424fyszyyezkh (VIAGRA) 100 mg tablet Take 100 mg [...] in the care of your patient.Macrina Thomason, [facility] 201711:58 AMmeds reordered. Check bs. Pain is okI have seen the patient and verified the exam. I have personally reviewedall labs and imaging results. I have discussed with the HUMAN RESOURCES PROJECT MANAGER and I haveparticipated in sifuentes components.I agree with the note as documented with additional comments if needed.The assessment and plan as outlined are reflection of our discussion.Reagan Blair MD [facility] NURSING PROGon 12-30-2017 NURSING PROG HNO ID: [id number] thor: Sotero (Rn) Allison Chavarria: (none)Author Type: Registered NurseType: Nursing Progress NoteFiled: 12/30/2017 10:14 PMNote Text: Nursing Progress NotePatient Name: Alisia CorreaMRN: [id number] Location: / [place]-* Dai ly Note: Patient is resting in [...] was completed by: SOTERO CHAVARRIA RN [facility] NURSING PROG HNO ID: [id number] thor: Cece JerryRn) Allison Vera: (none)Author Type: Registered NurseType: Nursing Progress NoteFiled: 12/30/2017 4:53 PMNote Text: Nursing Progress NotePatient Name: Alisia CorreaMRN: [id number] Location: / [place]-* Dai ly Note: pt c/o pain to left underarm, med with percocet 2 tabs po, rtshoulder dsg intact with fresh ice pack applied, on q ball intact/ patent,lef shoulder immobilizer on, jacqueline sequentials on bilat, vs stable, ptstates cannot go home today. Pt states that his works to 6 pm and helive 2 hours away from [id number] pt resting in bed with no change in status, no needs at this timeThis note was completed by: Cece Vera RN [facility] PROGRESSon 12-30-2017 PROGRESS HNO ID: [id number] thor: Candida (Res) MahmoodService: Orthopaedic SurgeryAuthor Type: ResidentType: Progress NotesFiled: 12/30/2017 6:27 AMNote Text:ORTHOPAEDIC SURGERY PROGRESS NOTEDATE: 12/30/2017TIME: 5:54 AMPatient: Alisia CorreaMRN: [id number]: Procedure(s) (LRB):ARTHROPLASTY TOTAL SHOULDER; W/ GLENOID AND [...] labsMost recent imagingBilal MD Bi12/30/2017Orthopaedic Surgery PGY-2Pager: [phone] Normal [facility] THERAPY NTon 12-30-2017 THERAPY NT HNO ID: [id number] thor: Cyn (Ot) Marcuservice: Occupational TherapyAuthor Type: Occupational TherapistType: Therapy (PT/OT/Speech/Resp)Filed: 12/30/2017 4:30 PMNote Text:Occupational Therapy TreatmentSERVICE DATE: 12/30/2017SERVICE TIME: 1600 to 1610ROOM: [place] [id number] Discharge Disposition: HomeAnticipated Discharge Needs: Physical Assist [...] activities of dailyliving (ADL)Interventions Provided: Therapeutic Exercise (70740)Therapeutic Exercise (21869) Treatment Minutes: 101 unitSkilled Intervention(s): Facilitation of [...] ATURE: INDU Ray/L PATIENT NAME: [facility]: December 30, 2017 : 4:29 PM PAGER: [phone] [facility] THERAPY NT HNO ID: [id number] thor: Cyn Velazquezervice: Occupational TherapyAuthor Type: Occupational TherapistType: Therapy (PT/OT/Speech/Resp)Filed: 12/30/2017 2:42 PMNote Text:Occupational Therapy EvaluationSERVICE DATE: 12/30/2017SERVICE TIME: 1055 to 1125ROOM: [facility] [id number] Discharge Disposition: HomeAnticipated Discharge Needs: Physical Assist [...] activities of dailyliving (ADL)Interventions Provided: Evaluation;Therapeutic Exercise (87534);Self CareHome Management (90248)$ Evaluation-Moderate (01148) Billed Units: 1 unitTherapeutic Exercise (11530) Treatment Minutes: 101 unitSkilled Intervention(s): Instruction in therapeutic exercise PROM Lshoulder to 90 degrees in supineEducation in AROM distal to shoulder after brace comes off at home mid dayThursdaySelf Long Term Management (35815) Treatment Minutes: 131 unitSkilled Intervention(s): Instructed in [...] admitted on 12/29/17or Kenny BOB by Dr Kelseynt Report: I want to [...] ATURE: INDU Ray/Kenny PAT[facility]: [facility] 2017 : 2:34 PM PAGER: [phone] [facility] THERAPY NT HNO ID: [id number] thor: Pj (Pt) SulenService: Physical TherapyAuthor Type: Physical TherapistType: Therapy (PT/OT/Speech/Resp)Filed: 12/30/2017 1:25 PMNote Text:Physical Therapy EvaluationSERVICE DATE: 12/30/2017SERVICE TIME: 1140 to 1205ROOM: [facility] [id number] Discharge Disposition: Outpatient Physical Therapy (whenappropriate)Anticipa jacqueline [...] Diagnosis: Reduced mobility-otherInterventio ns Provided: Evaluation;Gait Training (45847)$ Evaluation-Low (97121) Billed Units: 1 unitGait Training (35279) Treatment Minutes: 232 unitsSkilled Intervention(s): Pt ambulated [...] 30, 2017 : 1:10 PM PAGER/CONTACT #: [phone] [facility] ANES Brian 12-29-2017 ANES POST HNO ID: [id number] thor: Ilsa NgService: AnesthesiologyAuthor Type: AnesthesiologistType: Anesthesia PostOpFiled: 12/29/2017 6:14 PMNote Text:POST ANESTHESIA EVALUATION NOTESERVICE DATE: 12/29/2017SERVICE TIME: 6:14 PMDOB: 1960Vitals: 12/29/1816Temp: 36.1 ?C (97 ?F) 36 ?C (96.8 ?F) 12/29/1816BP: 109/68 104/58 114/57 115/64 12/29/1816Pulse: (!) 59 (!) 58 61 60 12/29/1816Resp: 18 18 16 16 3512/29/1816SpO2: 97% 97% 97% 97%Validated Vital Signs: YesPOST [...] 2017 : 6:14 PM PAGER/CONTACT #: [facility] ANES PREOPon 12-29-2017 ANES PREOP HNO ID: [id number] thor: Ilsa NgService: AnesthesiologyAuthor Type: AnesthesiologistType: Anesthesia PreOpFiled: 12/29/2017 6:14 PMNote Text:REGIONAL ANESTHESIOLOGY DAY OF SURGERY NOTEPATIENT NAME: Alisia CorreaMRN: [id number] :ALLERGIESAllergen Reactions- Avelox [Moxifloxaci* Rash, Hives, Itching, [...] Complication, Without Long-Term CurrentUse of Insulin ([facility])Chronic Pain SyndromeCopd With Chronic Bronchitis ([facility])Arthritis of KneePrimary Osteoarthritis of Right KneeOa [...] HISTORYProcedure Laterality Date- COLONOSCOP W/ OR W/O [facility] SPEC Colonoscopy- EGD W/O OR W/BRUSH/WASH [...] SCM 08/06/2010 Performed by GEORGINA SEAMAN at [facility]- TOTAL KNEE REPLACEMENT Left 2012 with revision [...] Umanzor MDDATE: December 29, 2017TIME: 12:45 PM [facility] BRIEF OP NOTon 12-29-2017 BRIEF OP NOT HNO ID: [id number] thor: Candida GravesodService: Orthopaedic SurgeryAuthor Type: ResidentType: Brief Op NoteFiled: 12/29/2017 5:35 PMNote Text:SHOULDERBRIEF OPERATIVE / PROCEDURE NOTELOG ID: [id number]/Procedure Date: 12/29/2017Incision/Procedu re Start Time: 3:04 PMIncision Close/Procedure End Time: 5:22 PMSurgeon(s)/Proceduralis t(s) and Auctioneer Automobile(s):Surgeon(s) and Role: * Sergey Perez - Primary * Watson (Micheal Garcia - Fellow * Candida Pat - Resident - AssistingPhysician Auctioneer Automobile: Chato Arreita (Pa) IIProcedure(s):Procedure( s) (LRB):ARTHROPLASTY TOTAL SHOULDER; W/ [...] clinic, with Kenny Pat MD12/29/2017Orthopaedic Surgery PGY-2Pager: [phone]: Candida Pat MD PATIENT NAME: Alisia CorreaDATE: December 29, 2017 : 5:33 PM PAGER/CONTACT #: [phone] [facility] NURSING PROGon 12-29-2017 NURSING PROG HNO ID: [id number] thor: Ny (Rn) JAMIE Hernandezervice: NursingAuthor Type: Registered NurseType: Nursing Progress NoteFiled: 12/30/2017 6:13 AMNote Text: Nursing Progress NotePatient Name: Alisia CorreaMRN: [id number] Location: [facility] [place]/ [place] Dai ly Note: Assumed care, pt sitting [...] was completed by: NY HERNANDEZ RN [facility] NURSING PROG HNO ID: [id number] thor: Cece (Rn) Jody, RNService: (none)Author Type: Registered NurseType: Nursing Progress NoteFiled: 12/30/2017 10:50 AMNote Text: Nursing Progress NotePatient Name: Alisia CorreaMRN: [id number] Location: [address]-* Dai ly Note: pt arrived from PACU via bed, A+OX3, oriented pt to room andcall light, left shoulder dsg with immobilizer and ice pack dry andintact, pillow placed behind left elbow, on q ball intact/ clamped, ptdenies pain at this time, vs stable, [place] at bedside ordering dietfor [id number] Reviewed daily medication list with pt, compared med list with MARand ordered appropriate medications that were missing from pt's MARThis note was completed by: Cece Vera RN [facility] OPERATIVE NOon 12-29-2017 OPERATIVE NO HNO ID: [id number] thor: Sergey Cerna: Orthopaedic SurgeryAuthor Type: PhysicianType: Operative ReportFiled: 12/29/2017 5:49 PMNote Text:[facility] [place] [address] [place]OPERATIVE REPORTNAME: Alisia Correa [facility] #: [id number]: 12/29/2017 (3:04pm-5:22pm) AGE: 57SURGEON 1: Sergey Perez M.D.SET BUILDER: 1. Candida Pat M.D. 2. Watson Garcia [...] 48 mm, +7 mm STEPTECH anchor pegglenoid ([employer]98[employer] STEPTECH APG) was then impacted into [...] humeral implant was, therefore, a 12 stem, bqlqzotq582-jmwucb neck, with a 52 x 18 mm [...] single rotator interval stitch wasthen passed in dfesfj-us-bomdg fashion with a #2 Ticron suture and tieddown to close the lateral rotator interval and set the osteotomy piecesuperiorly. The two #2 Fiberwire sutures coming out of the bicipitalgroove were then sequentially passed in a gapaqh-br-ixpfk fashion medialto the horizontal mattress and sequential [...] the wound was sterilely dressed with Adaptic, 5p2ridiz, ABD dressing, and Foam tape. The shoulder [...] noneCOMPLICATIONS: none apparentEric Wicho Perez M.D. [facility] PT EDon 12-29-2017 PT ED HNO ID: [id number] thor: Crystal (Rn) Mario, RNService: NursingAuthor Type: Registered NurseType: Patient EducationFiled: 12/29/2017 12:00 PMNote Text:PRE OP LEARNING ASSESSMENTPROCEDURE/SURGE RY: SURGERY:READINESS TO LEARNCOGNITIVE ABILITY: Alert and orientedMOTIVATION TO LEARN: EagerInterestedFAMILY SUPPORT: High - Very involved in pt carePATIENT LEARNS BEST BY: Multiple MethodsFACTORS AFFECTING LEARNING: NonePHYSICAL LIMITATIONS AFFECTING LEARNING: NoneElectronically Signed By: Crystal Martin RN In Department: [facility]ERY / TO COME IN [facility] XR SHOULDER SPECIFY 1V LTon [...] LOYD MD on Dec 29 2017 5:49PM [id number] Normal [facility] NURSING PROGon 12-08-2017 NURSING PROG HNO ID: [id number] thor: Amaya (Rn) Paula, RNService: (none)Author Type: [...] HPI: DM-oral medication; Current smoker; S/P gastric [id number] Considerations:N/AChart Check:Yoly Mitchell [facility] 2017 9:11 AM Normal [facility] Type and SCR (30D)on 018 ABO/RH(D) Negative Normal [facility] Antibody Screen Negative Normal [facility] HOSPon 11-13-2017 HOSP Patient:Eddi [...] mg ORAL tablettamsulosin (FLOMAX) 0.4 mg ORAL [id number] Sulfate 1.25 mg/3 mL INHALATION nebulizer solutionacarbose(PRECOSE 25 MG TAB)potassium citrate (UROCIT-K 10) 10 mEq ORAL TbSRAdmission/Clinic Administered Medications as of 12/29/17:lidocaine 10 mg/mL (1 %) 1-2 mg injection (XYLOCAINE)lactated ringers infusionceFAZolin iv piggyback 2 g in D5W (iso-osmotic) 100 mL (ANCEF)ropivacaine 0.2 % 1,000 mg in NaCl infusion (ON-Q) (NAROPIN)Problem List:SPRAIN OF NECK (3/30/4) [S13.9XXA]Spinal stenosis in cervical region [M48.02]Brachial neuritis or radiculitis [M54.12]Displacement of thoracic intervertebral disc without myelopathy [M51.24]Carpal tunnel syndrome [G56.00]SPRAIN OF NECK (01/15/4) [S13.9XXA]Displacement of cervical intervertebral disc without myelopathy [...] mellitus (HCC) [E11.9]Essential hypertension [I10]Hyperlipidemia [E78.5]Ulcerative lesion [USU7715]Allergies:Avelox [Moxifloxacin Hcl]Celebrex [Celecoxib]Erythromycin BaseKlonopin [Clonazepam]Levaquin [Levofloxacin]Date Verified: 12/29/17Lab ValuesLab Value Units Date High LowPOTA* 4.6 mmol/L 12/07/2017 5.1 3.7HEMA* 43.5 % 12/07/2017 51.0 39.0No progress notes entered within the past 30 days Normal [facility] Basic Metabolic Panlon 07-02 Anion gap 11 mmol/L Normal 10-20 [facility] Comment on above: Performed By: #### C MP, IRON, CBCDIF ####[place] [id number]#### FERR, HBA1C ####[place] [phone] Calcium 8.0 mg/dL Low 8.5-10.5 [facility] Comment on above: Performed By: #### C MP, IRON, CBCDIF ####[place] [phone]#### FERR, HBA1C ####[place] [phone] Chloride 105 mmol/L Normal 98-110 [facility] Comment on above: Performed By: #### C MP, IRON, CBCDIF ####[address] #### FERR, HBA1C ####[place] [phone] CO2 23 mmol/L Normal 23-32 [facility] Comment on above: Performed By: #### C MP, IRON, CBCDIF ####[address] #### FERR, HBA1C ####[place] [phone] Creatinine 1.00 mg/dL Normal 0.70-1.40 [facility] Comment on above: Performed By: #### C MP, IRON, CBCDIF ####[place] [phone]#### FERR, HBA1C ####[place] [phone] eGFR (non-black) mL/min/{1.73_m2} Normal >60 [facility] Comment on above: Performed By: #### C MP, IRON, CBCDIF ####[place] [phone]#### FERR, HBA1C ####[place] [address] [address] [place] [address] Glucose mass conc 112 mg/dL High 65-100 [facility] Comment on above: Performed By: #### C MP, IRON, CBCDIF ####[place] [phone]#### FERR, HBA1C ####[place] [address] Potassium molar conc 3.7 mmol/L Normal 3.5-5.0 [facility] Comment on above: Performed By: #### C MP, IRON, CBCDIF ####[place] [address]13216-363-2018#### FERR, HBA1C ####[place] [address] Sodium 139 mmol/L Normal 135-146 [facility] Comment on above: Performed By: #### C MP, IRON, CBCDIF ####[place] [address]13216-363-2018#### FERR, HBA1C ####[place] [address] [address] Urea nitrogen 17 mg/dL Normal 10-25 [facility] Comment on above: Performed By: #### C MP, IRON, CBCDIF ####[place] [phone]#### FERR, HBA1C ####[place] [address] [address] [place] [phone] CASE MANAGEMon 07-02-2017 CASE MANAGEM HNO ID: [id number] thor: Kerri Castro) HouseService: Care ManagementAuthor Type: Social WorkerType: Care Mgt Progress NoteFiled: 07/03/2017 9:32 AMNote Text:CARE MANAGEMENT DISCHARGE NOTESERVICE DATE: 07/03/2017SERVICE TIME: LOS: 1 dayAdmission Date: 07/01/2017DISCHARGE ARRANGEMENT (list agency and phone number)Home and Home careProvider: [facility] care HANDOFF COMMUNICATION:summary of care sent to [facility] via [employer]. Informed [facility] pt d/c yesterday.TRANSPORTATION ARRANGEMENTS:Car via familyADDITIONAL CONTACT RESOURCES:Discharge Information Admission (Discharged) from 07/01/2017 in [facility] 5D Medical Follow-Up Appointment Specialty Stan Cali Provider Name Swati Fiore MD Address [address], [place] [address] Appointment Date 07/21/17 Appointment Time 9:00AM Additonal Instructions Patient should bring the following to appointment:Picture ID, Insurance Card, Copay (if applicable), Medications/Med List,and Hospital Discharge paperwork. Please provide a minimum of 24 hournotice for cancellations/reschedulin g.Needs Prior to Discharge: Ready for DischargeSIGNATURE: LIZETT Sweeney PATIENT NAME: Alisia Correa Sr.DATE: July 03, 2017 : 9:30 AM PAGER/CONTACT #: Normal [facility] CBCon 07-02-2017 Erythrocyte distribution width Auto Ratio (RBC) 13.6 % Normal 11.5-15.0 [facility] Comment on above: Performed By: #### C MP, IRON, CBCDIF ####[address] [phone]#### FERR, HBA1C ####[facility] [address] [place], [place] [phone] Erythrocytes (RBC) 3.73 10*6/uL Low 4.20-6.00 [facility] Comment on above: Performed By: #### C MP, IRON, CBCDIF ####[address] [phone]#### FERR, HBA1C ####[place] [phone] Hematocrit (HCT) 34.4 % Low 39.0-51.0 [facility] Comment on above: Performed By: #### C MP, IRON, CBCDIF ####[place] [phone]#### FERR, HBA1C ####[place] [phone] Hemoglobin mass conc (Bld) 10.9 g/dL Low 13.0-17.0 [facility] Comment on above: Performed By: #### C MP, IRON, CBCDIF ####[place] [phone]#### FERR, HBA1C ####[place] [phone] MCH 29.2 pG Normal 26.0-34.0 [facility] Comment on above: Performed By: #### C MP, IRON, CBCDIF ####[place] [phone]#### FERR, HBA1C ####[place] [address] MCHC mass conc (RBC) 31.7 g/dL Normal 30.5-36.0 [facility] Comment on above: Performed By: #### C MP, IRON, CBCDIF ####[place] [phone]#### FERR, HBA1C ####[place] [phone] MCV 92.2 fL Normal 80.0-100.0 [facility] Comment on above: Performed By: #### C MP, IRON, CBCDIF ####[place] [phone]#### FERR, HBA1C ####[address] [phone] Platelet mean volume (PMV) 12.5 fL Normal 9.0-12.7 [facility] Comment on above: Performed By: #### C MP, IRON, CBCDIF ####[place] [phone]#### FERR, HBA1C ####[place] [phone] Platelets 146 10*3/uL Low 150-400 [facility] Comment on above: Performed By: #### C MP, IRON, CBCDIF ####[place] [phone]#### FERR, HBA1C ####[place] [phone] WBC (Leukocytes) 6.04 10*3/uL Normal 3.70-11.00 [facility] Comment on above: Performed By: #### C MP, IRON, CBCDIF ####[place] [phone]#### FERR, HBA1C ####[address] [phone] CONSULT PROGon 07-02-2017 CONSULT PROG HNO ID: [id number] thor: Sonny Laguna (Pa)ervice: Pain ManagementAuthor Type: [...] (How often does the pain occur?) occurs zhatsamyds61to WM cc R knee painPERTINENT ROS:denies fever, [...] HISTORYProcedure Laterality Date- COLONOSCOP W/ OR W/O [facility] SPEC Colonoscopy- EGD W/O OR W/BRUSH/WASH [...] PLAN:56 year old WM s/p TKA R nse3Lwlcadg of tramadol 200mg/day and neurontin 600mg ii tab po tidImpressionStatus post right knee replacementAcute right knee painPlanContinue tylenol, cymbalta, topamax,Continue zanaflex prn, and oxyir prncontinue neurontin to 1200mg tid, home medicationcontinue iv toradol 30mg q 6hrsIf lack of pain control, recommend MScontin 15mg tidDiscuss with Dr. GrewalATURE: SHRAVAN Lynn-CDATE: July 02, 2017TIME: 9:32 AM Normal [facility] Glucose POCT (East, West, [place] A Use Only)on 07-02-2017 Glucose mass conc 97 mg/dL Normal 65-100 [facility] Comment on above: Performed By: #### C MP, IRON, CBCDIF ####[address] [phone]#### FERR, HBA1C ####[facility] [place], [place] [phone] Glucose mass conc 125 mg/dL High 65-100 [facility] Comment on above: Performed By: #### C MP, IRON, CBCDIF ####[place] [id number] [phone]#### FERR, HBA1C ####[place] [phone] [phone] NURSING PROGon 07-02-2017 NURSING PROG HNO ID: [id number] thor: [place] ([facility] [place]) Paul, RNService: (none)Author Type: Advance Clinical NurseType: Nursing Progress NoteFiled: 07/02/2017 1:37 PMNote Text: Nursing Progress NotePatient Name: Alisia Correa Sr. Location: [address]_ Daily Note:Patient attended discharge instruction class for [...] note was completed by: Geneva Miller RN [facility] NURSING PROG HNO ID: [id number] thor: Sobeida JerryRn) Debbie Francesice: (none)Author Type: Registered NurseType: Nursing Progress NoteFiled: 07/02/2017 3:02 PMNote Text: Nursing Progress NotePatient Name: Alisia Correa Sr. Location: [address]-_ Daily Note:1204: Patient is medically cleared to go home per Dr. Hernandez.1501: Patient is cleared from PT and OT to go home.This note was completed by: Sobeida Frances RN [facility] NURSING PROG HNO ID: [id number] thor: Debbie Barkley Rnice: (none)Author Type: Registered NurseType: Nursing Progress NoteFiled: [...] Rounds:Patient: Alisia Correa Sr.Care Management: Nate Herron Procurement Buyer: Anna Camacho RNOrtho Circulating Process Inspector: Anna Miller RNPharmacist: Nicky Sanches Discussed on [...] Concerns;Explain Scheduling and Routine of Care, Test andProcedures;[place] Patient/Family to Hospital/Unit EnvironmentKnowledge Deficit Goals/Outcomes: Participate [...] July 02, 2017 : 8:49 AM CSN: [id number] Nursing Progress NotePatient Name: Alisia Correa Sr. Location: [address]-_ Daily Note: Dr. Rivera placed on consult [...] home today.This note was completed by: Crystal Camacho, RN [facility] PROGRESSon 07-02-2017 PROGRESS HNO ID: [id number] thor: Ines Rubinice: General Internal MedicineAuthor Type: PhysicianType: Progress NotesFiled: [...] hrs: BP Temp Temp src Pulse Resp PaD30407/02/17 1455 129/79 37.3 ?C (99.1 ?F) Oral [...] 2+ carotidDATA:CBC, Coags, BMP, Mg, PhosRecent Labs 07/02/221859ZEA 6.04HB 10.9*HCT 34.4*PLT 146*NA 139K 3.7CHLOR 105CO2 [...] 1. oa2. Copd3. Dm ssi4 bphSIGNATURE: Ines Art David, MDDATE: July 02, 2017TIME: 6:45 PM [facility] PROGRESS HNO ID: [id number] thor: DANIEL Macielervice: Orthopaedic SurgeryAuthor Type: ResidentType: Progress NotesFiled: 07/02/2017 8:40 AMNote Text:ORTHOPAEDIC POSTOP PROGRESS NOTESUBJECTIVEPatient states that they are comfortableWell Controlled knee(s) pain.Denies incisional pain.OBJECTIVEVITAL SIGNS: BP 112/63 Pulse 80 Temp 37.2 ?C (98.9 ?F) (TemporalArtery) Resp 18 Ht 180.3 cm (5' 11 ) Wt 113.4 kg (250 lb) SpO2 95% BMI 34.87 kg/v9FKADNF AND OUTPUT:Intake/Output Summary (Last 24 hours) at [...] 02, 2017 : 8:40 AM PAGER/CONTACT #: [phone] discuss medical issues with medical co-management physicianOrthopedic issue please page me first, [phone] 6pm and on weekends please contact [facility] [phone] [facility] THERAPY NTon 07-02-2017 THERAPY NT HNO ID: [id number] thor: Nellie (Pt) Jerseyervice: Physical TherapyAuthor Type: Physical TherapistType: Therapy (PT/OT/Speech/Resp)Filed: 07/02/2017 3:04 PMNote Text:PHYSICAL THERAPY MISSED VISITSERVICE DATE: 07/02/2017SERVICE TIME: 1330 to 1335ROOM: [id number] Treatment. Patient not seen due to Declined. Preparing to go toOT for car transfer. Denied questions/concerns from PT standpoint. Clearedafter morning session for D/C home today.SIGNATURE: Nellie David PT PATIENT NAME: Alisia Correa .DATE: July 02, 2017 : 3:01 PM PAGER/CONTACT #: [phone] [facility] THERAPY NT HNO ID: [id number] thor: Rebecca JerryOt) Emelina, OTService: Occupational TherapyAuthor Type: Occupational TherapistType: Therapy (PT/OT/Speech/Resp)Filed: 07/02/2017 2:43 PMNote Text:Occupational Therapy TreatmentSERVICE DATE: 07/02/2017SERVICE TIME: 1413 to 1437ROOM: [id number] Discharge Disposition: Home OTRecommended Discharge Disposition Comments: [...] Weakness (generalized);Difficultyw alking-musculoskeletalInt erventions Provided: Therapeutic Activity (31374)Therapeutic Activity (16382) Treatment Minutes: 242 unitsSkilled Intervention(s): Instruction in [...] July 02, 2017 : 2:40 PM PAGER: [phone] [facility] THERAPY NT HNO ID: [id number] thor: Watson (Ot/L) Janie Connellyice: Occupational TherapyAuthor Type: Occupational TherapistType: Therapy (PT/OT/Speech/Resp)Filed: 07/02/2017 11:48 AMNote Text:Occupational Therapy EvaluationSERVICE DATE: 07/02/2017SERVICE TIME: 1036 to 1118ROOM: [id number] Discharge Disposition: Home OTRecommended Discharge Disposition Comments: [...] Weakness (generalized);Difficultyw alking-musculoskeletalInt erventions Provided: Evaluation;Therapeutic Activity (64387);Self CareHome Management (37034)$ Evaluation-Low (73920) Billed Units: 1 unitTherapeutic Activity (59537) Treatment Minutes: 101 unitSkilled Intervention(s): Instructed patient [...] transfers using wheeled walker between bedand chair.Self Long Term Management (89826) Treatment Minutes: 171 unitSkilled Intervention(s): Instructed in [...] 42FUNCTIONAL G CODE:OT 6 Clicks Score: 21 (07/02/171035)Self Care Current Status (G8987): CJ (07/02/17 103)Self Care Goal Status (G8988): CI (07/02/171035)Based on clinical assessment and the score on [...] Alert;AwakeFollows Commands: 3-step CommandsMini Cog Score: 5 (07/02/171035)CURRENT FUNCTIONAL STATUS:Current Activities of Daily Living Assist [...] July 02, 2017 : 11:33 AM PAGER: [phone] [facility] THERAPY NT HNO ID: [id number] thor: Nellie (Pt) JesúsyService: Physical TherapyAuthor Type: Physical TherapistType: Therapy (PT/OT/Speech/Resp)Filed: 07/02/2017 11:05 AMNote Text:Physical Therapy TreatmentSERVICE DATE: 07/02/2017SERVICE TIME: 917 to OOM: [id number] Discharge Disposition: Home PTAnticipated Discharge Needs: Physical [...] Diagnosis: Reduced mobility-otherInterventio ns Provided: Therapeutic Exercise (76884);Therapeutic Activity(16396);Gait Training (66904)Therapeutic Exercise (03574) Treatment Minutes: 201 unitSkilled Intervention(s): Instruction in therapeutic exercise seated andsupine TKR exercisesVerbal and tactile cuing provided .Education in HEp and TKR bookletTherapeutic Activity (15580) Treatment Minutes: 101 unitSkilled Intervention(s): Instructed patient in sit to supine using safe,effective techniqueEducation with POC, precautions, home management and set up, nonpharm paincontrol techniques, nonpharm pain control techniques, conservation ofenergy techniquesGait Training (88620) Treatment Minutes: 242 unitsSkilled Intervention(s): Instruction in [...] Assistance (with use of sheet as leg weatherization administrator after 2trials)Scooting Modified IndependentSit to Stand Stand [...] 02, 2017 : 10:58 AM PAGER/CONTACT #: [phone] [facility] ANES Brian 07-01-2017 ANES POST HNO ID: [id number] thor: Lora Knox IIService: AnesthesiologyAuthor Type: AnesthesiologistType: [...] 2017 : 11:34 AM PAGER/CONTACT #: [phone] [facility] ANES PREOPon 07-01-2017 ANES PREOP HNO ID: [id number] thor: Lora Knox IIService: AnesthesiologyAuthor Type: AnesthesiologistType: [...] results:Hematocrit 40.0 06/17/2017Potassium 4.4 06/17/2017ANES DOS/PREOP NOTE:Vitals: 07/01/018675XY: 115/74Pulse: 67Resp: 16Temp: (!) 35.9 ?C (96.6 [...] HISTORYProcedure Laterality Date- COLONOSCOP W/ OR W/O [facility] SPEC Colonoscopy- EGD W/O OR W/BRUSH/WASH [...] July 01, 2017 : 7:11 AM CSN: [id number] [facility] BRIEF OP NOTon 07-01-2017 BRIEF OP NOT HNO ID: [id number] thor: Tyron Lebronice: Orthopaedic SurgeryAuthor Type: PhysicianType: Brief Op NoteFiled: 07/01/2017 9:44 AMNote Text:TOTAL KNEE ARTHROPLASTYBRIEF OPERATIVE / PROCEDURE NOTELOG ID: [id number]/Procedure Date: 07/01/2017Incision/Procedu re Start Time: 8:12 AMIncision Close/Procedure End Time:Surgeon(s)/Procedura list(s) and Auctioneer Automobile(s):Surgeon(s) and Role: * Swati Fiore - Primary * Tyron Rose - FellowSurgical Auctioneer Automobile: Kd Navarro (Shravan) FineganProcedure(s):Anastasiya campos(s) (LRB):ARTHROPLASTY REPLACE JOINT TOTAL KNEE (Right)Anesthesia: GeneralPeripheral Block Type: None pre-opApproach: Median parapatellarFindings: see operative reportEstimated Blood Loss: 150 mlsSpecimens: NoneComplications: NoneImplant:Implant Name Type Inv. Item Serial No. Breeding Technician Lot No. LRB No. UsedPIN TRIATHLON 3IN FIXATION HEADLESS FLUTED KNEE - [id number] Pin PINTRIATHLON 3IN FIXATION HEADLESS FLUTED KNEE STRY/[employer] [id number] TRIATHLON 7 PA FEMORAL CRUCIATE RETAIN BEAD KNEE RIGHT -[id number] Joint - Knee COMPONENT TRIATHLON 7 PA FEMORAL CRUCIATE RETAINBEAD KNEE RIGHT STRY/[employer] [id number] Right 1INSERT TRIATHLON 6 X3 13MM TIBIAL CONDYLAR STABILIZED KNEE - [id number] - Knee INSERT TRIATHLON 6 X3 13MM TIBIAL CONDYLAR STABILIZED KNEESTRY/[employer] [id number] Right 1BASEPLATE TRIATHLON 6 TRITANIUM 38V42AN TIBIAL 4 CRUCIFORM PEG KEEL KNEE -[id number] Joint - Knee BASEPLATE TRIATHLON 6 TRITANIUM [id number] TIBIAL 4CRUCIFORM PEG KEEL KNEE STRY/[employer] [id number] Right 1COMPONENT TRITANIUM 35MM METAL 10MM PATELLAR ASYMMETRIC KNEE - [id number] - Knee COMPONENT TRITANIUM 35MM METAL 10MM PATELLAR ASYMMETRIC KNEE STRY/[employer] D4Y3 Right 1Bearing Surface: FixedFixation: CementlessSSI Risk Factors: DMConstraint: Cruciate RetainingOther: NonePre-Op/Pre-Procedure Diagnosis: Primary osteoarthritis of right knee[M17.11]Post-Op/Post- Procedure Diagnosis: Primary osteoarthritis of right knee[M17.11]Weight Bearing Status: Weight Bearing As ToleratedSIGNATURE: Tyron Rose MD PATIENT NAME: Alisia Correa .DATE: July 01, 2017 : 9:43 AM PAGER/CONTACT #: [phone] [facility] CASE MGT INIT Amira 2016 CASE MGT INIT JR HNO ID: [id number] thor: Kerri Castro) HouseService: Care ManagementAuthor Type: Social WorkerType: Care Mgt Initial AssessmentFiled: 07/01/2017 1:46 PMNote Text:CARE MANAGEMENT: ASSESSMENT AND DISCHARGE PLANSERVICE DATE: 07/01/2017SERVICE TIME: 12:00pmPRIMARY CARE PHYSICIAN:CHARI Wolfhone: [phone] STATUS: InpatientPOTENTIAL DISCHARGE PLANSHomeHome CareHome OT/PTPatient/Representati ve Stated Goals: return home.Needs Prior to Discharge: To Be Determined;Discharge Prescriptions;OT/PTEvalua tion;Discharge Transportation;Pharmacy Bedside DeliveryHealth Insurance: Medical Scar[employer] ServicesLiving Arrangement: HomeLives With: SpouseFinancial Resources: RetiredPrimary Contact:Extended Emergency Contact InformationPrimary Emergency Contact: Armen Correaddress: [address] [place] [phone] Bevhrosk: SpouseSupportive: Yes- at bedsideOther Important Patient Contacts: [...] Have Advance Directives? Yes: Durable Power of Pier Hand forHealth Care: Dipti Correa , copy [...] days? NoHas the Patient Been in a Halfway Facility in the Past 30 days? NoFREEDOM OF CHOICE EXPLAINED:Yes Alisia CorreaFinancial Disclosure ProvidedThe patient and/or family has been given the Provider List: YesProvider List: Home CarePreference: [facility] Recently had their home care service in April.HANDOFF COMMUNICATION:referral sent to [facility]. anticipate d/c home tomorrow.SIGNATURE: LIZETT Sweeney PATIENT NAME: Alisia Correa Sr.DATE: July 01, 2017 : 1:41 PM PAGER/CONTACT #: [facility] CONSULTon 07-01-2017 CONSULT HNO ID: [id number] thor: Ines TurnerniService: General Internal MedicineAuthor Type: [...] HISTORYProcedure Laterality Date- COLONOSCOP W/ OR W/O [facility] SPEC Colonoscopy- EGD W/O OR W/BRUSH/WASH [...] 18, height 180.3 cm (5' 11 ), fnhhax878.4 kg (250 lb), SpO2 98 %.General appearance: [...] Hernandez, MDDATE: July 01, 2017TIME: 9:01 PM [facility] CONSULT HNO ID: [id number] thor: Sonny Pablo) NovakService: Pain ManagementAuthor Type: [...] (How often does the pain occur?) occurs lvnakbzwtyjlju61is WM cc R knee painPERTINENT ROS:denies fever, [...] HISTORYProcedure Laterality Date- COLONOSCOP W/ OR W/O [facility] SPEC Colonoscopy- EGD W/O OR W/BRUSH/WASH [...] GT 10 SCM 08/06/2010 Performed by [facility] TOTAL KNEE REPLACEMENT Left [...] SHRAVAN Lynn-CDATE: July 01, 2017TIME: 2:35 PM [facility] Glucose POCT (East, West, [place] A Use Only)on 07-01-2017 Glucose mass conc 117 mg/dL High 65-100 [facility] Comment on above: Performed By: #### C MP, IRON, CBCDIF ####[place] [phone]#### FERR, HBA1C ####[place] [address] Glucose mass conc 115 mg/dL [address] Comment on above: Performed By: #### C MP, IRON, CBCDIF ####[place] [phone]#### FERR, HBA1C ####[place] [address] Glucose mass conc 128 mg/dL [address] Comment on above: Performed By: #### C MP, IRON, CBCDIF ####[place] [phone]#### FERR, HBA1C ####[place] [address] Glucose mass conc 103 mg/dL [address] Comment on above: Performed By: #### C MP, IRON, CBCDIF ####[place] [phone]#### FERR, HBA1C ####[place] [address] NURSING PROGon 07-01-2017 NURSING PROG HNO ID: [id number] thor: Chato Osborn (Rn) Jeanna, RNService: NursingAuthor Type: Registered NurseType: Nursing Progress NoteFiled: 07/01/2017 12:08 PMNote Text: Nursing Progress NotePatient Name: Alisia Correa Sr. Location: [address]/TE-[id number]_ Daily Note:PT admitted from PACU in bed [...] note was completed by: Chato Meeks RN [facility] NURSING PROG HNO ID: [id number] thor: Bambi (Rn) Sunni RNService: (none)Author Type: Registered NurseType: Nursing Progress NoteFiled: 07/01/2017 9:56 AMNote Text:Discharge Status:Patient is Awakening, and is no airway issues. Skin condition was WNL andwarm.Transported to recovery room via bed with siderails up. Accompanied byanesthetist and PAClifC/. [facility] NURSING PROG HNO ID: [id number] thor: Kaylee (Rn) Aimee RNService: (none)Author Type: Registered NurseType: Nursing Progress NoteFiled: 07/01/2017 11:13 AMNote Text: Nursing Progress NotePatient Name: Alisia Correa Sr. Location: [address] Daily Note:pt to pacu; sleepy. drsg to [...] note was completed by: Kaylee Yu RN [facility] NURSING PROG HNO ID: [id number] thor: Bambi (Rn) Debbie Moellerice: (none)Author Type: Registered NurseType: Nursing Progress NoteFiled: 07/01/2017 8:21 AMNote Text:Patient transported to the OR via cart, accompanied by Sabrina Shi.Level of consciousness: Alert and Oriented x 3Emotional Status:CalmSensory Impairments: NoLanguage Barrier: NoMobility Impairments: NoAddressed any patient concerns regarding consents, OR environment, andanesthetics.Body temperature maintained by maintaining OR room temperature dylxher53-53 degrees F, providing patient with warm bath blankets, limiting areasof exposure and providing warm irrigation fluid. [facility] NURSING PROG HNO ID: [id number] thor: Neetu JerryRn) Allison Munson: (none)Author Type: Registered NurseType: Nursing Progress NoteFiled: 07/01/2017 7:27 AMNote Text: Nursing Progress NotePatient Name: Alisia Correa . [facility] Daily Note:AANDO.Lungs clear. Rt leg pink, warm, brisk refill. Strongdorsiflexion, pos sensation. Rt DP and PT pulses palp. Pain all over fromarthritis 04/27. Numbness/tingling to both feet.This note was completed by: Neetu Munson RN [facility] OPERATIVE NOon 07-01-2017 OPERATIVE NO HNO ID: [id number] thor: Swati Aurae Margieervice: Orthopaedic SurgeryAuthor Type: PhysicianType: Operative ReportFiled: 07/01/2017 12:16 PMNote Text:OPERATIVE NOTEPATIENT NAME: Alisia Correa Sr. ID: [id number] Date: 07/01/2017Surgeon(s) and Auctioneer Automobile(s):Surgeon(s) and Role: * Swati Fiore - Primary [...] ccImplants:Implant Name Type Inv. Item Serial No. Breeding Technician Lot No. LRB No. UsedPIN TRIATHLON 3IN FIXATION HEADLESS FLUTED KNEE - [id number] Pin PINTRIATHLON 3IN FIXATION HEADLESS FLUTED KNEE STRY/[employer] [id number] TRIATHLON 7 PA FEMORAL CRUCIATE RETAIN BEAD KNEE RIGHT -[id number] Joint - Knee COMPONENT TRIATHLON 7 PA FEMORAL CRUCIATE RETAINBEAD KNEE RIGHT STRY/[employer] [id number] Right 1INSERT TRIATHLON 6 X3 13MM TIBIAL CONDYLAR STABILIZED KNEE - [id number] - Knee INSERT TRIATHLON 6 X3 13MM TIBIAL CONDYLAR STABILIZED KNEESTRY/[employer] [id number] Right 1BASEPLATE TRIATHLON 6 TRITANIUM [id number] TIBIAL 4 CRUCIFORM PEG KEEL KNEE -[id number] Joint - Knee BASEPLATE TRIATHLON 6 TRITANIUM 81E61TC TIBIAL 4CRUCIFORM PEG KEEL KNEE STRY/[employer] [id number] Right 1COMPONENT TRITANIUM 35MM METAL 10MM PATELLAR ASYMMETRIC KNEE - [id number] - Knee COMPONENT TRITANIUM 35MM METAL 10MM [...] verified this against the epicondylar axis and [place]burn'sline.The femur was sized and drill holes were [...] resected leaving a healthy remnant with greater tkcs30ve thickness. The patella was sized with the [...] Fiore, MDDATE: July 01, 2017TIME: 12:16 PM [facility] PT EDon 07-01-2017 PT ED HNO ID: [id number] thor: Chely (Rn) JAMIE Lunaervice: (none)Author Type: Registered NurseType: Patient EducationFiled: 07/01/2017 7:12 AMNote Text:PATIENT EDUCATION TOPIC: PROCEDURE / SURGERY: Pre-op Teaching: Post opcarePATIENT NAME: Alisia Correa Sr. LOCATION: [place] [address]READ[place] NESS TO LEARNCOGNITIVE ABILITY: Alert and orientedMOTIVATION [...] (RECOMMENDATION): NoneElectronically Signed By: Chely Luna RN [facility] PT ED HNO ID: [id number] thor: María (Rn) JAMIE Grubbservice: NursingAuthor Type: Registered NurseType: Patient EducationFiled: 07/01/2017 6:15 AMNote Text:PATIENT EDUCATION TOPIC: PROCEDURE / SURGERY: Pre-op Teaching:Logistics ProtocolsComplication PreventionSurgical Safety PrinciplesPATIENT NAME: Alisia Correa Sr. LOCATION: [place] [address]READI NESS TO LEARNCOGNITIVE ABILITY: Alert and orientedMOTIVATION [...] (RECOMMENDATION): NoneElectronically Signed By: María Grubbs RN [facility] THERAPY NTon 07-01-2017 THERAPY NT HNO ID: [id number] thor: Nellie (Pt) JesúsyService: Physical TherapyAuthor Type: Physical TherapistType: Therapy (PT/OT/Speech/Resp)Filed: 07/01/2017 4:47 PMNote Text:Physical Therapy EvaluationSERVICE DATE: 07/01/2017SERVICE TIME: 1545 to 1630ROOM: [id number] Discharge Disposition: Home PTAnticipated Discharge Needs: Physical [...] Diagnosis: Reduced mobility-otherInterventio ns Provided: Evaluation;Gait Training (60187);TherapeuticActivi ty (87603)$ Evaluation-Low (97981) Billed Units: 1 unitTherapeutic Activity (82328) Treatment Minutes: 121 unitSkilled Intervention(s): Instructed patient in supine to sit pushing withupper extremities to sit upEducation with POC, precautions, TKR booklet, nonpharm pain controltechniques, toileting, assisted to jose underwear, home management and setupGait Training (05903) Treatment Minutes: 131 unitSkilled Intervention(s): Instruction in [...] 56 y.o male amditted 07/01/17 s/pR TKR. [facility] icnludes OA, YOLA, gastric bypass, L [...] 01, 2017 : 4:41 PM PAGER/CONTACT #: [phone] [facility] NURSING PROGon 06-19-2017 NURSING PROG HNO ID: [id number] thor: Renae Cox (Rn) Burak, RNService: (none)Author Type: Registered NurseType: Nursing Progress NoteFiled: 06/19/2017 10:02 AMNote Text:PACC visit 06/17/17. H/O SDM,BMI35,YOLA,COPD/asthma . 06/17/17 nasalcANDs(-),ts,ferritin a1c, cbc/d,bmp,iron studies. 04/15/17 ekg. 05/20/17 kneexr. Chart check complete. Penelope HAMILTON [facility] CBC and Differentialon 06-17 Abs Baso 0.03 k/uL Normal 0.00-0.10 [facility] Comment on above: Performed By: #### C MP, IRON, CBCDIF ####[place] [id number]#### FERR, HBA1C ####[place] [address] [address] [place] [address] Abs [place] 0.35 k/uL Normal 0.00-0.86 [facility] Comment on above: Performed By: #### C MP, IRON, CBCDIF ####[place] [phone]#### FERR, HBA1C ####[address] [place] [address] Abs Neut 2.15 k/uL Normal 1.45-7.50 [facility] Comment on above: Performed By: #### C MP, IRON, CBCDIF ####[place] 2072616-363-2018#### FERR, HBA1C ####[place] [address] [address] [place] [phone] Basophils/100 WBC Auto (Bld) 0.8 % [facility] Comment on above: Performed By: #### C MP, IRON, CBCDIF ####[place] [id number]#### FERR, HBA1C ####[place] [address] [address] [phone] Eosinophils 0.19 10*3/uL Normal 0.00-0.45 [facility] Comment on above: Performed By: #### C MP, IRON, CBCDIF ####[place] [address]13216-363-2018#### FERR, HBA1C ####[place] [address] [address] [phone] Eosinophils/100 leukocytes 4.9 % Normal [facility] Comment on above: Performed By: #### C MP, IRON, CBCDIF ####[place] [address]13216-363-2018#### FERR, HBA1C ####[place] [address] [address] [place] [address] Erythrocyte distribution width Auto Ratio (RBC) 14.3 % Normal 11.5-15.0 [facility] Comment on above: Performed By: #### C MP, IRON, CBCDIF ####[place] [address]13216-363-2018#### FERR, HBA1C ####[place] [address] [address] [phone] Erythrocytes (RBC) 0.0 /100 WBC Normal 0 [facility] Comment on above: Performed By: #### C MP, IRON, CBCDIF ####[place] [address]13216-363-2018#### FERR, HBA1C ####[place] [address] [address] [phone] Erythrocytes (RBC) 4.35 10*6/uL Normal 4.20-6.00 [facility] Comment on above: Performed By: #### C MP, IRON, CBCDIF ####[place] [address]13216-363-2018#### FERR, HBA1C ####[place] [address] Hematocrit (HCT) 40.0 % Normal 39.0-51.0 [facility] Comment on above: Performed By: #### C MP, IRON, CBCDIF ####[place] [address]13216-363-2018#### FERR, HBA1C ####[place] [address] Hemoglobin mass conc (Bld) 12.8 g/dL Low 13.0-17.0 [facility] Comment on above: Performed By: #### C MP, IRON, CBCDIF ####[place] [address]13216-363-2018#### FERR, HBA1C ####[place] [address] Lymphocytes 1.14 10*3/uL Normal 1.00-4.00 [facility] Comment on above: Performed By: #### C MP, IRON, CBCDIF ####[place] [address]13216-363-2018#### FERR, HBA1C ####[place] [address] Lymphocytes/100 leukocytes 29.5 % Normal [facility] Comment on above: Performed By: #### C MP, IRON, CBCDIF ####[place] [address]13216-363-2018#### FERR, HBA1C ####[place] [address] MCH 29.4 pG Normal 26.0-34.0 [facility] Comment on above: Performed By: #### C MP, IRON, CBCDIF ####[place] [address]13216-363-2018#### FERR, HBA1C ####[place] [address] [address] [place] [phone] MCHC mass conc (RBC) 32.0 g/dL Normal 30.5-36.0 [facility] Comment on above: Performed By: #### C MP, IRON, CBCDIF ####[address] #### FERR, HBA1C ####[place] [address] [phone] MCV 92.0 fL Normal 80.0-100.0 [facility] Comment on above: Performed By: #### C MP, IRON, CBCDIF ####[place] [address]13216-363-2018#### FERR, HBA1C ####[place] [address] Monocytes/100 leukocytes 9.1 % Normal [facility] Comment on above: Performed By: #### C MP, IRON, CBCDIF ####[address] #### FERR, HBA1C ####[place] [phone] Neutrophils/100 WBC Auto (Bld) 55.7 % Normal [facility] Comment on above: Performed By: #### C MP, IRON, CBCDIF ####[address] #### FERR, HBA1C ####[address] [place] [address] Platelet mean volume (PMV) 12.3 fL Normal 9.0-12.7 [facility] Comment on above: Performed By: #### C MP, IRON, CBCDIF ####[address] #### FERR, HBA1C ####[place] [phone] Platelets 176 10*3/uL Normal 150-400 [facility] Comment on above: Performed By: #### C MP, IRON, CBCDIF ####[place] [address]13216-363-2018#### FERR, HBA1C ####[phone] WBC (Leukocytes) 3.86 10*3/uL Normal 3.70-11.00 [facility] Comment on above: Performed By: #### C MP, IRON, CBCDIF ####[place] [address]13216-363-2018#### FERR, HBA1C ####[place] [phone] Comp Metabolic Panelon 06-17 Alanine aminotransferase (ALT) 14 U/L Normal 5-50 [facility] Comment on above: Performed By: #### C MP, IRON, CBCDIF ####[place] [address]13216-363-2018#### FERR, HBA1C ####[place] [phone] Albumin 4.1 g/dL Normal 3.5-5.0 [facility] Comment on above: Performed By: #### C MP, IRON, CBCDIF ####[place] [address]13216-363-2018#### FERR, HBA1C ####[place] [address] Alkaline phosphatase (ALP) 95 U/L Normal 40-150 [facility] Comment on above: Performed By: #### C MP, IRON, CBCDIF ####[place] [address]13216-363-2018#### FERR, HBA1C ####[place] [address] [address] [place] [address] Anion gap 11 mmol/L Normal 10-20 [facility] Comment on above: Performed By: #### C MP, IRON, CBCDIF ####[place] [address]13216-363-2018#### FERR, HBA1C ####[place] [address] [address] [place] [address] Aspartate aminotransferase (AST) 18 U/L Normal 7-40 [facility] Comment on above: Performed By: #### C MP, IRON, CBCDIF ####[place] [address]13216-363-2018#### FERR, HBA1C ####[place] [address] Bilirubin (total) 0.2 mg/dL Normal 0.0-1.5 [facility] Comment on above: Performed By: #### C MP, IRON, CBCDIF ####[place] [address]13216-363-2018#### FERR, HBA1C ####[place] [address] Calcium 9.2 mg/dL Normal 8.5-10.5 [facility] Comment on above: Performed By: #### C MP, IRON, CBCDIF ####[address] #### FERR, HBA1C ####[place] [address] [address] [address] Chloride 104 mmol/L Normal 98-110 [facility] Comment on above: Performed By: #### C MP, IRON, CBCDIF ####[address] #### FERR, HBA1C ####[place] [address] [address] CO2 25 mmol/L Normal 23-32 [facility] Comment on above: Performed By: #### C MP, IRON, CBCDIF ####[address] #### FERR, HBA1C ####[place] [phone] Creatinine 1.07 mg/dL Normal 0.70-1.40 [facility] Comment on above: Performed By: #### C MP, IRON, CBCDIF ####[place] [address]0513216-363-2018#### FERR, HBA1C ####[address] [place] [phone] eGFR (non-black) mL/min/{1.73_m2} Normal >60 [facility] Comment on above: Performed By: #### C MP, IRON, CBCDIF ####[place] [address]0513216-363-2018#### FERR, HBA1C ####[place] [address] Glucose mass conc 83 mg/dL Normal 65-100 [facility] Comment on above: Performed By: #### C MP, IRON, CBCDIF ####[place] [address]13216-363-2018#### FERR, HBA1C ####[place] [address] Potassium molar conc 4.4 mmol/L Normal 3.5-5.0 [facility] Comment on above: Performed By: #### C MP, IRON, CBCDIF ####[place] [id number]#### FERR, HBA1C ####[address] [place] [address] Protein 7.1 g/dL Normal 6.0-8.4 [facility] Comment on above: Performed By: #### C MP, IRON, CBCDIF ####[place] [address]0513216-363-2018#### FERR, HBA1C ####[address] [place] [address] Sodium 140 mmol/L Normal 135-146 [facility] Comment on above: Performed By: #### C MP, IRON, CBCDIF ####[place] [address]0513216-363-2018#### FERR, HBA1C ####[address] [place] [address] Urea nitrogen 18 mg/dL Normal 10-25 [facility] Comment on above: Performed By: #### C MP, IRON, CBCDIF ####[place] [address]0513216-363-2018#### FERR, HBA1C ####[address] [place] [phone] Ferritinon 06-17-2017 Ferritin 45.3 ng/mL Normal 30.3-565.7 [facility] Comment on above: Performed By: #### C MP, IRON, CBCDIF ####[place] [address]13216-363-2018#### FERR, HBA1C ####[address] [place] [address] Hemoglobin A1con 06-17-2017 Glucose mass conc 105 mg/dL Normal [facility] Comment on above: Result Comment: eAG: (Estimated average glucose) is a calculated value from HgbA1c and is claim representative of the average blood glucose level in the last 2-3 month period. Performed By: #### C MP, IRON, CBCDIF ####[address] #### FERR, HBA1C ####[place] [address] [address] [phone] Hemoglobin A1c/Hemoglobin.total mass fraction (Bld) 5.3 % Normal 4.3-5.6 [facility] Comment on above: Performed By: #### C MP, IRON, CBCDIF ####[address] #### FERR, HBA1C ####[place] [address] [address] [phone] Iron and TIBCon 06-17-2017 Iron 42 ug/dL Normal 35-150 [facility] Comment on above: Performed By: #### C MP, IRON, CBCDIF ####[place] [id number]#### FERR, HBA1C ####[address] [place] [phone] TIBC 335 ug/dL Normal 250-450 [facility] Comment on above: Performed By: #### C MP, IRON, CBCDIF ####[address] [address] #### FERR, HBA1C ####[place] [phone] Transferrin Saturatn 13 % Low 20-55 [facility] Comment on above: Performed By: #### C MP, IRON, CBCDIF ####[address] #### FERR, HBA1C ####[place] [address] [place] [place] [phone] Staph aureus PCRon 7 MRSA PCR Negative [facility] Comment on above: Performed By: #### S APCR ####[address] [phone] [address] [place] [place] [phone] S aureus Spec Source Nasal Normal [facility] Comment on above: Performed By: #### S APCR ####[address] [phone] [phone] Staph aureus PCR Negative [facility] Comment on above: Performed By: #### S APCR ####[address] [phone] [phone] Type and SCR (30D)on 017 ABO/RH(D) Negative [facility] Comment on above: Performed By: #### T SCR30 ####[address] [phone] Antibody Screen Negative [facility] Comment on above: Performed By: #### T SCR30 ####[address] [phone] HOSPon 05-20-2017 HOSP Patient:Eddi Correa Kenny Avila.MRN: [...] ORAL per tablettamsulosin (FLOMAX) 0.4 mg ORAL Ha29Puavugsss Sulfate 1.25 mg/3 mL INHALATION nebulizer solutionALBUTEROL [...] 40.0 % 06/17/2017 51.0 39.0Progress Notes (PT FOR[facility]LY [facility] [employer] [employer]):Nisa Jackman PT 06/24/2017 10:58 AM SignedPatient was seen for TKR measurements today.See flowsheet data for results of measurement.Nisa Jackman PT, DPTProgress Notes (PRE ANES HINDUISM):Lily Porras CNP 06/17/2017 1:29 PM SignedHISTORY AND PHYSICAL EXAMINATIONSERVICE DATE: 06/17/2017SERVICE TIME: 9:03 AMPRIMARY CARE PHYSICIAN: NANCY Wolf FOR VISIT:Alisia Correa [...] HISTORYProcedure Laterality Date- COLONOSCOP W/ OR W/O [facility] SPEC Colonoscopy- EGD W/O OR W/BRUSH/WASH [...] documented by Carla Edwards LPN on 04/15/2017 [id number].Pt reports ALL Medications are accurate 04/15/17CURRENT ALLERGIES:ALLERGIESAllerg en Reactions- Avelox [Moxifloxaci* Rash, Hives, Itching, Shortness of Breath- Celebrex [Celecoxib] Rash, Hives, GI Upset- Erythromycin Base Hives, Shortness of Breath- Klonopin [Clonazepa* Itching- Levaquin [Levofloxa* HivesREVIEW OF SYSTEMS:PAIN ASSESSMENT: PainPain Score: 5/10Pain Location: Knee-RightDescription: Dull;AchingDuration Amount of Time: 1Duration Units: YearsFrequency: ContinuousIntervention: ColdGeneral: No weight loss, malaise or fevers.Neuro: No history of TIA's, stroke, FUSING [employer] tumor, impaired sensorium, hemiplegia,paraplegia or quadraplegia. No neurological symptoms or problems., Postive forNo history of TIA's, stroke, FUSING [employer] tumor, impaired sensorium, hemiplegia,paraplegia or quadraplegia. No neurological symptoms or problems.Respiratory: Positive for Asthma, Mild COPD: daily inhalers + prn. Smoker. YOLA(doesn not use cpap)Cardiovascular: No history of HTN requiring medication, no history of angina,CHF, AL, cardiac surgery or stents. Denies rest pain, [...] 17, 2017 : 9:03 AM PAGER/CONTACT #: [phone] Ellis, CNP 06/17/2017 9:48 AM AddendumPATIENT PREOPERATIVE INSTRUCTIONSSwati Fiore MD has scheduled you for your procedure at this surgerycenter:[facility]: [phone] --[address] [place] [address].You will need to call the day prior [...] surgery.- NO jewelry, body piercings, makeup, nail occitan, hairpins or contacts are nirmal worn the day of surgery.- CHG wipes provided with instructions.- Glucerna, one can daily the five consecutive days prior to your surgery.If you develop symptoms such as a fever, cold, or flu, or have other changes [facility] within TWO DAYS of scheduled surgery or the morning of surgery,please contact the surgery center above.Personal Belongings:- Leave ALL valuables and money at home or with family members. Arrival Time for Surgery:- You MUST call [facility] the afternoon before surgery after3:30 pm (or Thursday for Thursday surgery) for a scheduled arrival time.Please be aware that emergency situations arise, which may delay or change yoursurgical time. If this happens, we will notify you as soon as possible andregret any inconvenience.Lily Porras CNPPrevious VersionChristine Sebastien Chao LPN 06/17/2017 1:29 PM SignedHCG wipes, instructions and demonstration provided this visit. Pt verbalizedunderstanding. Information for joint replacement class with dates and timesprovided. Ny Chao LPN Normal [facility] Vital Signs Date Time Vital Sign Value Performing Clinician Facility 07-17-2025 05:00-0400 Body temperature 97.9 [degF] Ellen Crabtree DO Work Phone: [facility] 07-17-2025 05:00-0400 Diastolic blood pressure 67 mm[Hg] Ellen Crabtree DO Work Phone: [facility] 07-17-2025 05:00-0400 Heart rate 62 /min Ellen Kuns DO Work Phone: [facility] 07-17-2025 05:00-0400 Respiratory rate 18 /min Ellen Kuns DO Work Phone: [facility] 07-17-2025 05:00-0400 SaO2% (BldA) [Mass fraction] 96 % Ellen Kuns DO Work Phone: [facility] 07-17-2025 05:00-0400 Systolic blood pressure 103 mm[Hg] Ellen Kuns DO Work Phone: [facility] 07-16-2025 05:54-0400 Body weight 102 kg Ellen Kuns DO Work Phone: [facility] 07-12-2025 11:06-0400 Body height 177.8 cm Ellen Kuns DO Work Phone: [facility] 03-16-2025 09:27-0400 Body height 177.8 cm Heidy Marin MD Work Phone: [facility] 03-16-2025 09:27-0400 Body mass index (BMI) [Ratio] 33.72 kg/m2 Heidy Marin MD Work Phone: [facility] 03-16-2025 09:27-0400 Body temperature 97.59 [degF] Hediy Marin MD Work Phone: [facility] 03-16-2025 09:27-0400 Body weight 106.59 kg Heidy Marin MD Work Phone: [facility] [employer] [facility] 03-16-2025 09:27-0400 Diastolic blood pressure 70 mm[Hg] Heidy Marin MD Work Phone: [facility] 03-16-2025 09:27-0400 Heart rate 73 /min Heidy Marin MD Work Phone: [facility] [employer] [facility] 03-16-2025 09:27-0400 SaO2% (BldA) [Mass fraction] 93 % Heidy Marin MD Work Phone: [facility] 03-16-2025 09:27-0400 Systolic blood pressure 106 mm[Hg] Heidy Marin MD Work Phone: [facility] 01-30-2025 14:04-0400 Body temperature 97.1 [degF] Ellen Kuns DO Work Phone: [facility] 01-30-2025 14:04-0400 Diastolic blood pressure 88 mm[Hg] Ellen Kuns DO Work Phone: [facility] 01-30-2025 14:04-0400 Heart rate 72 /min Ellen Kuns DO Work Phone: [facility] 01-30-2025 14:04-0400 Systolic blood pressure 132 mm[Hg] Ellen Kuns DO Work Phone: [facility] 12-29-2024 13:57-0400 Body height 177.8 cm Ellen Kuns DO Work Phone: [facility] 12-29-2024 13:57-0400 Body mass index (BMI) [Ratio] 33 kg/m2 Ellen Kuns DO Work Phone: [facility] 12-29-2024 13:57-0400 Body weight 104.32 kg Ellen Kuns DO Work Phone: [facility] 12-29-2024 13:57-0400 Diastolic blood pressure 80 mm[Hg] Ellen Kuns DO Work Phone: [facility] 12-29-2024 13:57-0400 Heart rate 72 /min Ellen Kuns DO Work Phone: [facility] 12-29-2024 13:57-0400 Respiratory rate 18 /min Ellen Kuns DO Work Phone: [facility] 12-29-2024 13:57-0400 SaO2% (BldA) [Mass fraction] 97 % Ellen Kuns DO Work Phone: [facility] 12-29-2024 13:57-0400 Systolic blood pressure 110 mm[Hg] Ellen Kuns DO Work Phone: [facility] 11-28-2024 16:16-0500 Diastolic blood pressure 94 mm[Hg] LYN RODRI [facility] 11-28-2024 16:16-0500 Heart rate 79 /min LYN RODRI [facility] 11-28-2024 16:16-0500 Mean blood pressure 115 mm[Hg] LYN RODRI [facility] 11-28-2024 16:16-0500 Respiratory rate 18 /min LYN RODRI [facility] 11-28-2024 16:16-0500 Systolic blood pressure 156 mm[Hg] LYN RODRI [facility] 09-27-2024 18:05-0500 Body temperature 98 [degF] Ellen Kuns DO Work Phone: [facility] 09-27-2024 18:03-0500 Diastolic blood pressure 80 mm[Hg] Ellen Kuns DO Work Phone: [facility] 09-27-2024 18:03-0500 Heart rate 59 /min Ellen Kuns DO Work Phone: [facility] 09-27-2024 18:03-0500 Respiratory rate 20 /min Ellen Kuns DO Work Phone: [facility] 09-27-2024 18:03-0500 SaO2% (BldA) [Mass fraction] 95 % Ellen Kuns DO Work Phone: [facility] 09-27-2024 18:03-0500 Systolic blood pressure 141 mm[Hg] Ellen Kuns DO Work Phone: [facility] 09-27-2024 17:31-0500 Inhaled oxygen flow rate 6 L/min Ellen Kuns DO Work Phone: [facility] 09-27-2024 15:56-0500 Body height 177.8 cm Ellen Kuns DO Work Phone: [facility] 09-27-2024 15:56-0500 Body weight 102.05 kg Ellen Kuns DO Work Phone: [facility] 09-27-2024 12:15-0500 Blood Pressure Location LYN RODRI [facility] 09-27-2024 12:15-0500 Body temperature 98.78 [degF] LYN RODRI [facility] 09-27-2024 12:15-0500 Diastolic blood pressure 71 mm[Hg] LYN RODRI [facility] 09-27-2024 12:15-0500 Heart rate 65 /min LYN RODRI [facility] 09-27-2024 12:15-0500 Respiratory rate 20 /min LYN RODRI [facility] 09-27-2024 12:15-0500 Systolic blood pressure 101 mm[Hg] LYN RODRI [facility] 08-23-2024 11:30-0500 Body height 177.8 cm Samira Bowden MD Work Phone: [facility] 08-23-2024 11:30-0500 Body mass index (BMI) [Ratio] 33 kg/m2 Samira Bowden MD Work Phone: [facility] 08-23-2024 11:30-0500 Body weight 104.33 kg Samira Bowden MD Work Phone: [facility] Comment on above: patient reported 08-23-2024 11:30-0500 Diastolic blood pressure 72 mm[Hg] Samira Bowden MD Work Phone: [facility] 08-23-2024 11:30-0500 Heart rate 78 /min Samira Bowden MD Work Phone: [facility] 08-23-2024 11:30-0500 Systolic blood pressure 116 mm[Hg] Samira Bowden MD Work Phone: [facility] 06-21-2024 14:11-0400 Body height 177.8 cm [facility] 06-21-2024 14:11-0400 Body mass index (BMI) [Ratio] 30.1 kg/m2 [facility] 06-21-2024 14:11-0400 Body weight 95.25 kg [facility] 06-21-2024 14:11-0400 Diastolic blood pressure 60 mm[Hg] [facility] 06-21-2024 14:11-0400 Heart rate 55 /min [facility] 06-21-2024 14:11-0400 Respiratory rate 16 /min [facility] 06-21-2024 14:11-0400 SaO2% (BldA) [Mass fraction] 98 % [facility] 06-21-2024 14:11-0400 Systolic blood pressure 100 mm[Hg] [facility] 04-26-2024 17:17-0400 Body weight 6 mg [facility] 03-17-2024 11:58-0400 Diastolic blood pressure 62 mm[Hg] Heidy Marin MD Work Phone: [facility] 03-17-2024 11:58-0400 Systolic blood pressure 100 mm[Hg] Heidy Marin MD Work Phone: [facility] 03-17-2024 11:57-0400 Body mass index (BMI) [Ratio] 30.13 kg/m2 Heidy Marin MD Work Phone: [facility] 03-17-2024 11:57-0400 Body weight 95.25 kg Heidy Marin MD Work Phone: [facility] 03-17-2024 11:57-0400 Heart rate 70 /min Heidy Marin MD Work Phone: [facility] 03-15-2024 11:18-0400 Blood Pressure Location Pippa Orzech [facility] 03-15-2024 11:18-0400 Body temperature 98.24 [degF] Pippa Orzech [facility] 03-15-2024 11:18-0400 Diastolic blood pressure 88 mm[Hg] Pippa Orzech [facility] 03-15-2024 11:18-0400 Heart rate 73 /min Pippa Orzech [facility] 03-15-2024 11:18-0400 Respiratory rate 16 /min Pippa Orzech [facility] 03-15-2024 11:18-0400 Systolic blood pressure 138 mm[Hg] Pippa Orzech [facility] 02-11-2024 10:18-0400 Diastolic blood pressure 80 mm[Hg] DO Ellen Kuns Work Phone: [facility] 02-11-2024 10:18-0400 Heart rate 60 /min DO Ellen Kuns Work Phone: [facility] 02-11-2024 10:18-0400 Respiratory rate 16 /min DO Ellen Kuns Work Phone: [facility] 02-11-2024 10:18-0400 SaO2% (BldA) [Mass fraction] 97 % DO Ellen Kuns Work Phone: [facility] 02-11-2024 10:18-0400 Systolic blood pressure 139 mm[Hg] DO Ellen Kuns Work Phone: [facility] 02-11-2024 08:29-0400 Body height 177.8 cm DO Ellen Kuns Work Phone: [facility] 02-11-2024 08:29-0400 Body weight 95.25 kg DO Ellen Kuns Work Phone: [facility] 02-10-2024 13:09-0400 Body height 180.34 cm [facility] 02-10-2024 13:09-0400 Body mass index (BMI) [Ratio] 29.2 kg/m2 [facility] 02-10-2024 13:09-0400 Body weight 95.25 kg [facility] 02-10-2024 13:09-0400 Diastolic blood pressure 60 mm[Hg] [facility] 02-10-2024 13:09-0400 Heart rate 67 /min [facility] 02-10-2024 13:09-0400 Respiratory rate 16 /min [facility] 02-10-2024 13:09-0400 SaO2% (BldA) [Mass fraction] 97 % [facility] 02-10-2024 13:09-0400 Systolic blood pressure 112 mm[Hg] [facility] 01-28-2024 11:06-0400 Body height 177.8 cm Heidy Marin MD Work Phone: [facility] 01-28-2024 11:06-0400 Body mass index (BMI) [Ratio] 30.13 kg/m2 Heidy Marin MD Work Phone: [facility] 01-28-2024 11:06-0400 Body weight 95.25 kg Heidy Marin MD Work Phone: [facility] 01-28-2024 11:06-0400 Diastolic blood pressure 69 mm[Hg] Heidy Marin MD Work Phone: [facility] 01-28-2024 11:06-0400 Systolic blood pressure 100 mm[Hg] Heidy Marin MD Work Phone: [facility] 01-22-2024 08:59-0400 Body height 180.34 cm [facility] 01-22-2024 08:59-0400 Body mass index (BMI) [Ratio] 27.8 kg/m2 [facility] 01-22-2024 08:59-0400 Body weight 90.71 kg [facility] 01-22-2024 08:59-0400 Diastolic blood pressure 62 mm[Hg] [facility] 01-22-2024 08:59-0400 Heart rate 62 /min [facility] 01-22-2024 08:59-0400 Systolic blood pressure 112 mm[Hg] [facility] 11-16-2023 13:17-0500 Diastolic blood pressure 82 mm[Hg] Reena Billy SPEARS Work Phone: [facility] 11-16-2023 13:17-0500 Heart rate 58 /min Reena Billy SPEARS Work Phone: [facility] 11-16-2023 13:17-0500 Systolic blood pressure 144 mm[Hg] Reena Billy SPEARS Work Phone: [facility] 11-10-2023 14:30-0500 Body height 180.34 cm Elleneliane Bordens Other [facility] 11-10-2023 14:30-0500 Diastolic blood pressure 80 mm[Hg] Ellen Kuns Other [facility] 11-10-2023 14:30-0500 Respiratory rate 16 /min Ellen Kuns Other [employer] Other 11-10-2023 14:30-0500 SaO2% (BldA) [Mass fraction] 94 % Ellen Kuns Other [employer] Other 11-10-2023 14:30-0500 Systolic blood pressure 128 mm[Hg] Ellen Kuns Other [facility] 09-02-2023 13:45-0500 Body height 180.34 cm Ellen Kuns Other [employer] Other 09-02-2023 13:45-0500 Diastolic blood pressure 62 mm[Hg] Ellen Kuns Other [employer] Other 09-02-2023 13:45-0500 Respiratory rate 18 /min Ellen Kuns Other [employer] Other 09-02-2023 13:45-0500 SaO2% (BldA) [Mass fraction] 97 % Ellen Kuns Other [employer] Other 09-02-2023 13:45-0500 Systolic blood pressure 92 mm[Hg] Ellen Kuns Other [employer] Other 05-19-2023 15:15-0400 Body height 180.34 cm Ellen Kuns Other [employer] Other 05-19-2023 15:15-0400 Diastolic blood pressure 60 mm[Hg] Ellen Kuns Other [employer] Other 05-19-2023 15:15-0400 Respiratory rate 18 /min Ellen Kuns Other [employer] Other 05-19-2023 15:15-0400 SaO2% (BldA) [Mass fraction] 98 % Ellen Crabtree Other [employer] Other 05-19-2023 15:15-0400 Systolic blood pressure 80 mm[Hg] Ellen Crabtree Other [employer] Other 03-20-2023 09:06-0400 Blood Pressure Location Fidel IBARRA [facility] 03-20-2023 09:06-0400 Diastolic blood pressure 78 mm[Hg] Fidel IBARRA [facility] 03-20-2023 09:06-0400 Heart rate 70 /min Fidel IBARRA [facility] 03-20-2023 09:06-0400 Respiratory rate 16 /min Fidel IBARRA [facility] 03-20-2023 09:06-0400 Systolic blood pressure 132 mm[Hg] Fidel IABRRA [facility] 02-20-2023 09:33-0400 Blood Pressure Location Fidel IBARRA [facility] 02-20-2023 09:33-0400 Diastolic blood pressure 78 mm[Hg] Fidel IBARRA [facility] 02-20-2023 09:33-0400 Heart rate 68 /min Fidel IBARRA [facility] 02-20-2023 09:33-0400 Respiratory rate 16 /min Fidel IBARRA [facility] 02-20-2023 09:33-0400 Systolic blood pressure 130 mm[Hg] Fidel IBARRA [facility] 01-30-2023 11:54-0400 Blood Pressure Location Fidelmunir IBARRA [facility] 01-30-2023 11:54-0400 Diastolic blood pressure 72 mm[Hg] Fidelmunir IBARRA [facility] 01-30-2023 11:54-0400 Heart rate 68 /min Fidelmunir IBARRA [facility] 01-30-2023 11:54-0400 Respiratory rate 16 /min Fidel IBARRA [facility] 01-30-2023 11:54-0400 Systolic blood pressure 99 mm[Hg] Fidel IBARRA [facility] 11-11-2022 15:00-0500 Body height 180.34 cm Ellen Fluencrdavion Other [employer] [facility] [employer] Other 11-11-2022 15:00-0500 Body mass index (BMI) [Ratio] 28.59 kg/m2 Ellen Fluencrdavion Other [employer] Other 11-11-2022 15:00-0500 Body temperature 95.6 [degF] Ellen Fluencrs Other [employer] Other 11-11-2022 15:00-0500 Body weight 92.99 kg Ellen Fluencrs Other [employer] Other 11-11-2022 15:00-0500 Diastolic blood pressure 56 mm[Hg] Ellen Kuns Other [employer] Other 11-11-2022 15:00-0500 Respiratory rate 18 /min Ellen Kuns Other [employer] Other 11-11-2022 15:00-0500 SaO2% (BldA) [Mass fraction] 99 % Ellen Kuns Other [employer] Other 11-11-2022 15:00-0500 Systolic blood pressure 80 mm[Hg] Ellen Kuns Other [employer] Other 09-02-2022 14:45-0500 Body height 180.34 cm Ellen Kuns Other [employer] Other 09-02-2022 14:45-0500 Body mass index (BMI) [Ratio] 27.19 kg/m2 Ellen Kuns Other [employer] Other 09-02-2022 14:45-0500 Body weight 88.45 kg Ellen Kuns Other [employer] Other 09-02-2022 14:45-0500 Diastolic blood pressure 60 mm[Hg] Ellen Kuns Other [employer] Other 09-02-2022 14:45-0500 Respiratory rate 18 /min Ellen Kuns Other [employer] Other 09-02-2022 14:45-0500 SaO2% (BldA) [Mass fraction] 92 % Ellen Kuns Other [employer] Other 09-02-2022 14:45-0500 Systolic blood pressure 92 mm[Hg] Ellen Crabtree Other [employer] Other 02-18-2022 09:29-0400 Diastolic blood pressure 55 mm[Hg] Frank Oden MD Work Phone: [email or web address] 02-18-2022 09:29-0400 Systolic blood pressure 105 mm[Hg] Frank Oden MD Work Phone: [email or web address] 02-18-2022 08:30-0400 Body temperature 97.9 [degF] Frank Oden MD Work Phone: [email or web address] 02-18-2022 08:30-0400 Heart rate 75 /min Frank Oden MD Work Phone: [email or web address] 02-18-2022 08:30-0400 Respiratory rate 18 /min Frank Oden MD Work Phone: [email or web address] 02-18-2022 08:30-0400 SaO2% (BldA) [Mass fraction] 97 % Frank Oden MD Work Phone: [email or web address] 02-09-2022 05:15-0400 Body mass index (BMI) [Ratio] 34.44 kg/m2 Frank Oden MD Work Phone: [email or web address] 02-09-2022 05:15-0400 Body weight 108.86 kg Frank Oden MD Work Phone: [email or web address] 02-07-2022 09:09-0400 Body height 177.8 cm Frank Oden MD Work Phone: [email or web address] 01-27-2022 10:15-0400 Body height 180.34 cm Ellen Crabtree Other [employer] Other 01-27-2022 10:15-0400 Body mass index (BMI) [Ratio] 29.15 kg/m2 Ellen Crabtree Other [employer] Other 01-27-2022 10:15-0400 Body weight 94.8 kg Ellen Kuns Other [employer] Other 01-27-2022 10:15-0400 Diastolic blood pressure 70 mm[Hg] Ellen Kuns Other [employer] Other 01-27-2022 10:15-0400 Respiratory rate 18 /min Ellen Kuns Other [employer] Other 01-27-2022 10:15-0400 SaO2% (BldA) [Mass fraction] 98 % Ellen Kuns Other [employer] Other 01-27-2022 10:15-0400 Systolic blood pressure 98 mm[Hg] Ellen Kuns Other [employer] Other 12-05-2021 15:00-0500 Body height 180.34 cm Ellen Kuns Other [employer] Other 12-05-2021 15:00-0500 Body mass index (BMI) [Ratio] 29.43 kg/m2 Ellen Kuns Other [employer] Other 12-05-2021 15:00-0500 Body weight 95.71 kg Ellen Kuns Other [employer] Other 12-05-2021 15:00-0500 Diastolic blood pressure 70 mm[Hg] Ellen Kuns Other [employer] Other 12-05-2021 15:00-0500 Respiratory rate 18 /min Ellen Kuns Other [employer] Other 12-05-2021 15:00-0500 SaO2% (BldA) [Mass fraction] 99 % Ellen Crabtree Other [employer] Other 12-05-2021 15:00-0500 Systolic blood pressure 106 mm[Hg] Ellen Crabtree Other [employer] Other 12-03-2021 16:32-0500 Body height 177.8 cm [facility] 12-03-2021 16:32-0500 Body mass index (BMI) [Ratio] 30.42 kg/m2 [facility] 12-03-2021 16:32-0500 Body surface area Derived from formula 2.18 m2 [facility] 12-03-2021 16:32-0500 Body weight 96.16 kg [facility] 12-03-2021 16:32-0500 Diastolic blood pressure 62 mm[Hg] [facility] 12-03-2021 16:32-0500 Heart rate 80 /min [facility] 12-03-2021 16:32-0500 Systolic blood pressure 102 mm[Hg] [facility] 11-19-2021 14:44-0500 Body height 177.8 cm [facility] 11-19-2021 14:44-0500 Body mass index (BMI) [Ratio] 31.18 kg/m2 [facility] 11-19-2021 14:44-0500 Body surface area Derived from formula 2.21 m2 [facility] 11-19-2021 14:44-0500 Body weight 98.57 kg [facility] 11-19-2021 14:44-0500 Diastolic blood pressure 70 mm[Hg] [facility] 11-19-2021 14:44-0500 Heart rate 64 /min [facility] 11-19-2021 14:44-0500 Systolic blood pressure 110 mm[Hg] [facility] 09-05-2021 12:00-0500 58 1 Ellen Crabtree Work Phone: [address] Work Phone: Comment on above: [id number] 08-27-2021 11:30-0500 Body height 180.34 cm Ellen Crabtree Other [employer] Other 08-27-2021 11:30-0500 Body mass index (BMI) [Ratio] 31.24 kg/m2 Ellen Crabtree Other [employer] Other 08-27-2021 11:30-0500 Body weight 101.61 kg Ellen Crabtree Other [employer] Other 08-27-2021 11:30-0500 Diastolic blood pressure 68 mm[Hg] Ellen Crabtree Other [employer] Other 08-27-2021 11:30-0500 Respiratory rate 18 /min Ellen Crabtree Other [employer] Other 08-27-2021 11:30-0500 SaO2% (BldA) [Mass fraction] 98 % Ellen Crabtree Other [facility] [employer] Other 08-27-2021 11:30-0500 Systolic blood pressure 98 mm[Hg] Elleneliane Crabtree Other [facility] [employer] Other 08-16-2021 14:23-0400 Diastolic blood pressure 68 mm[Hg] Elleneliane Bordens Work Phone: [facility] [employer] DO Work Phone: 08-16-2021 14:23-0400 Systolic blood pressure 90 mm[Hg] Elleneliane Bordens Work Phone: [facility] [employer] DO Work Phone: 08-16-2021 14:21-0400 Body height 177.8 cm Elleneliane Crabtree Work Phone: [facility] [employer] DO Work Phone: 08-16-2021 14:21-0400 Body mass index (BMI) [Ratio] 32.14 kg/m2 Ellen Bordens Work Phone: [facility] [employer] 250 DO Work Phone: 08-16-2021 14:21-0400 Body surface area Derived from formula 2.19 m2 Ellen R Michis Work Phone: [facility] [employer] 250 DO Work Phone: 08-16-2021 14:21-0400 Body weight 101.61 kg Ellen R Michis Work Phone: [facility] [employer] 250 DO Work Phone: 08-16-2021 14:21-0400 Diastolic blood pressure 68 mm[Hg] Ellen R Kuns Work Phone: [facility] [employer] 250 DO Work Phone: 08-16-2021 14:21-0400 Heart rate 72 /min Ellen R Kuns Work Phone: [facility] [employer] DO Work Phone: 08-16-2021 14:21-0400 Systolic blood pressure 90 mm[Hg] Ellen R Kuns Work Phone: [facility] [employer] DO Work Phone: Encounters Encounter Date Encounter Type Care Provider Facility Start: 08-02-2025 ambulatory Michelle Mahoney Facility:[facility] Start: 07-24-2025 End: 07-24-2025 ambulatory Fidel Ibarra Facility:[facility] Start: 07-24-2025 Fidel Ibarra MD -[facility] [employer] Work Phone: Start: 07-20-2025 ambulatory [facility] Start: 07-18-2025 Graciela Macias LPN [facility] Work Phone: Start: 07-13-2025 End: 07-13-2025 Isabelle Bowden MD Work Phone: [facility] Comment on above: Spinal stenosis of l umbar region with neurogenic claudication Start: 07-12-2025 End: 07-12-2025 ambulatory Michelle Maru Facility:[facility] Start: 07-12-2025 End: 07-12-2025 Patient encounter procedure Michelle Mahoney [facility] Start: 07-12-2025 Non-patient / Non-visit Steven Gonzales MD -[facility] Work Phone: Start: 07-12-2025 Steven Gonzales MD -[facility] Work Phone: Start: 07-06-2025 ambulatory [facility] Start: 07-06-2025 End: 07-06-2025 ambulatory [facility] Start: 07-05-2025 Non-patient / Non-visit Rock Art MD -[facility] Work Phone: Start: 07-05-2025 Heriberto Art MD -[facility] Work Phone: Start: 06-28-2025 Non-patient / Non-visit Rock Art MD -[facility] Work Phone: Start: 06-28-2025 Heriberto Art MD -[facility] Work Phone: Start: 06-28-2025 End: 07-17-2025 Evaluation and management of inpatient [facility] Facility:[facility] Start: 06-26-2025 Evaluation and management of inpatient [facility] Start: 06-20-2025 Evaluation and management of inpatient [facility] Start: 06-20-2025 Evaluation and management of inpatient [facility] Start: 06-20-2025 Evaluation and management of inpatient [facility] Start: 06-20-2025 Evaluation and management of inpatient HERMINIO CHOE [facility] Start: 06-16-2025 Evaluation and management of inpatient [facility] Start: 06-15-2025 Evaluation and management of inpatient [facility] Start: 06-15-2025 [facility]: 06-15-[facility]25 Evaluation and management of inpatient [facility] Start: 06-15-2025 End: 06-28-2025 [facility] Start: 06-15-2025 Non-patient / Non-visit Sonialudy sebastien Colleen Enrique [employer] [facility] Work Phone: Start: 06-15-2025 Abdoulaye Niñoskyla patiño DO [facility] Work Phone: Start: 06-14-2025 End: 06-14-2025 ambulatory Michelle Mahoney Facility:[facility] Start: 06-13-2025 End: 06-13-2025 Patient encounter procedure Michelle Mahoney [facility] Start: 06-12-2025 End: 06-12-2025 [facility] Start: 06-06-2025 End: 06-06-2025 Telephone encounter Eliane Ken [facility] Neurology, A Department of [facility] Comment on above: New Patient Start: 06-05-2025 ambulatory [facility] Start: 06-05-2025 End: 06-05-2025 ambulatory [facility] Start: 05-29-2025 Non-patient / Non-visit [facility]tree [facility] Work Phone: Start: 05-29-2025 Ellen Crabtree [facility] Work Phone: Start: 05-15-2025 End: 05-15-2025 ambulatory LYN MACE Facility:[facility] Start: 05-15-2025 End: 05-15-2025 Patient encounter procedure LYN MACE [facility] Start: 04-26-2025 End: 04-26-2025 Orders Only Lyn Banks MD Work Phone: [facility] - Neurophysiology Comment on above: Chronic intractable headache, unspecified headache type (Primary Dx) Start: 04-25-2025 End: 04-25-2025 ambulatory LORA BARGERCKO [facility] Start: 04-24-2025 End: 04-24-2025 ambulatory LYN MACE Facility:[facility] Start: 04-24-2025 End: 04-24-2025 Patient encounter procedure LYN MACE [facility] Start: 04-19-2025 End: 04-19-2025 Orders Only Lyn Banks MD Work Phone: [facility] - Neurophysiology Comment on above: Parkinson's disease without dyskinesia or fluctuating manifestations (CMS-HCC) (Primary Dx); Dysphagia, unspecified type Start: 04-11-2025 End: 04-11-2025 Clinisync Result Encounter Heidy Marin MD Work Phone: [facility] External Department Unsolicited Start: 04-11-2025 End: 04-11-2025 Clinisync Result Encounter Heidy Marin MD Work Phone: [facility] External Department Unsolicited Start: 04-05-2025 End: 04-05-2025 [facility] Start: 04-04-2025 End: 04-06-2025 Isabelle Bowden MD Work Phone: [facility] Physicians Neurology Comment on above: Spinal stenosis of l umbar region with neurogenic claudication Start: 03-31-2025 End: 03-31-2025 Orders Only Lyn Banks MD Work Phone: [facility] Neurology, A Department of [facility] Comment on above: Dysautonomia orthost atic hypotension syndrome (Primary Dx) Start: 03-31-2025 End: 03-31-2025 Patient encounter procedure LYN MACE [facility] Start: 03-29-2025 End: 03-29-2025 ambulatory [facility] Start: 03-16-2025 End: 03-16-2025 Office outpatient visit 15 minutes Heidy Marin MD Work Phone: [facility] Vascular Surgery Comment on above: Encounter for abdomi nal aortic aneurysm (AAA) screening (Primary Dx); Open wound of left great toe, subsequent encounter; Critical limb ischemia of left lower extremity with gangrene ([facility]-H[facility]) Start: 03-16-2025 End: 03-16-2025 ambulatory [facility] BEATRIZ [facility] Start: 03-14-2025 End: 03-14-2025 ambulatory LYN Kenny [facility] Start: 03-14-2025 End: 03-14-2025 Office outpatient visit 40 minutes Lyn Banks MD Work Phone: [facility] Neurology, A Department of [facility] Comment on above: Dysphagia, unspecifi ed type (Primary Dx); Globus sensation; Dysautonomia orthostatic hypotension syndrome; Constipation, unspecified constipation type; Cerebellar dysmetria Start: 03-10-2025 End: 03-10-2025 ambulatory LYN Skyla RODRI [facility] Start: 02-28-2025 End: 02-28-2025 Clinisync Result Encounter Heidy Marin MD Work Phone: [facility] External Department Unsolicited Start: 02-28-2025 End: 02-28-2025 Clinisync Result Encounter Heidy Marin MD Work Phone: [facility] External Department Unsolicited Start: 02-24-2025 ambulatory LYN E RODRI Facili ty:[facility] Start: 02-17-2025 End: 02-17-2025 ambulatory LYN E RODRI Facility:[facility] Start: 02-15-2025 End: 02-15-2025 ambulatory Ellen Crabtree DO Work Phone: [facility] Work Phone: Start: 02-15-2025 End: 02-15-2025 Patient encounter procedure Ellen Kuns DO Work Phone: [facility] [place] Work Phone: Start: 01-30-2025 End: 01-30-2025 Patient encounter procedure Ellen Kuns DO Work Phone: [facility] Work Phone: Start: 01-26-2025 End: 01-26-2025 ambulatory LYN E RODRI Facility:[facility] Start: 12-29-2024 End: 12-29-2024 ambulatory Ellen Kuns DO Work Phone: [facility] Work Phone: Start: 12-29-2024 End: 12-29-2024 Patient encounter procedure Ellen Kuns DO Work Phone: [facility] [place] Work Phone: Start: 12-27-2024 End: 12-27-2024 ambulatory LYN E RODRI Facility:[facility] Start: 12-13-2024 Non-patient / Non-visit Ellen Kuns DO Work Phone: [facility] Work Phone: Start: 12-13-2024 End: 12-13-2024 ambulatory Ellen Kuns DO Work Phone: [facility] Work Phone: Start: 12-13-2024 End: 12-13-2024 Departed Referred Ellen Kuns DO Work Phone: [facility] Path [facility] Start: 12-13-2024 Non-patient / Non-visit Ellen Kuns DO Work Phone: [facility] Work Phone: Start: 11-28-2024 End: 11-28-2024 ambulatory LYN E RODRI [facility] Start: 11-28-2024 End: 11-28-2024 Lab Drop off LYN Skyla RODRI [facility] Start: 11-28-2024 End: 11-28-2024 ambulatory LYN E RODRI Facility:[facility] Start: 11-28-2024 End: 11-28-2024 Patient encounter procedure LYN Skyla RODRI [facility] Start: 11-28-2024 End: 11-28-2024 Patient encounter procedure Ellen Michis DO Work Phone: [facility] [place] Work Phone: Start: 11-28-2024 End: 11-28-2024 ambulatory Ellen Michis DO Work Phone: [facility] Work Phone: Start: 11-25-2024 ambulatory LYN MACE Facili ty:[facility] Start: 11-23-2024 End: 11-23-2024 Refill Samira Bowden MD Work Phone: [facility] Comment on above: Parkinson's disease ([facility] [place]) Start: 11-23-2024 End: 11-23-2024 Refill Samira Bowden MD Work Phone: [facility] Comment on above: Parkinson's disease ([facility] [place] [place]) Start: 11-19-2024 End: 11-21-2024 Refill Samira Bowden MD Work Phone: [facility] Comment on above: Parkinson's disease ([facility] [place]) Start: 10-28-2024 End: 10-28-2024 ambulatory PA-C LYN Skyla RODRI Facility:[facility] Start: 10-28-2024 End: 10-28-2024 Patient encounter procedure LYN MACE [facility] Start: 10-24-2024 End: 10-24-2024 Refill Samira Bowden MD Work Phone: [facility] Comment on above: Orthostasis Start: 09-27-2024 End: 09-27-2024 Emergency department patient visit Ellen Crabtree DO Work Phone: [facility]-Emergency Room Work Phone: Start: 09-27-2024 End: 09-27-2024 ambulatory PA-C LYN MACE Facility:[facility] Start: 09-27-2024 End: 09-27-2024 Lab Drop off LYN MACE [facility] Start: 09-27-2024 End: 09-27-2024 ambulatory PA-C LYN Skyla RODRI Facility:[facility] Start: 09-27-2024 End: 09-27-2024 Patient encounter procedure LYN MACE [facility] Start: 09-26-2024 End: 09-30-2024 Refill Reena SPEARS Work Phone: [facility] Comment on above: Orthostasis Start: 09-25-2024 End: 09-30-2024 Refill Jose Eduardo Owen MD Work Phone: [facility] Comment on above: Migraine without aur a and without status migrainosus, not intractable Spinal stenosis of l umbar region with neurogenic claudication Start: 08-30-2024 End: 08-30-2024 ambulatory PA-C LYN Skyla RODRI Facility:[facility] Start: 08-30-2024 End: 08-30-2024 Patient encounter procedure LYN MACE [facility] Start: 08-29-2024 End: 08-31-2024 Refill Samira Bowden MD Work Phone: [facility] Comment on above: Parkinson's disease ([facility] Start: 08-23-2024 End: 08-23-2024 Office outpatient visit 40 minutes Samira Bowden MD Work Phone: [facility] Comment on above: 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[facility]) (Primary Dx); Spinal stenosis of lumbar region with neurogenic claudication; Parkinson's disease without dyskinesia or fluctuating manifestations ([facility]) Start: 08-23-2024 End: 08-23-2024 ambulatory SAMIRA BOWDEN [facility] Start: 08-09-2024 End: 08-09-2024 ambulatory Pippa X Yurich Facility:[facility] Start: 08-09-2024 End: 08-09-2024 Patient encounter procedure Pippa X Orzech [facility] Start: 07-31-2024 End: 08-03-2024 Refill Reena Cervantes APRN-SUPERVISOR SEWING ROOM Work Phone: [facility] Comment on above: Spinal stenosis of l umbar region with neurogenic claudication Start: 07-19-2024 End: 07-19-2024 ambulatory PA-C LYN MACE Facility:[facility] Start: 07-19-2024 End: 07-19-2024 Patient encounter procedure LYN MACE [facility] Start: 07-14-2024 End: 07-15-2024 Refill Reena Cervantes APRN-SUPERVISOR SEWING ROOM Work Phone: [facility] Comment on above: Orthostatic hypotens ion due to Parkinson's disease ([facility]) Start: 06-30-2024 End: 06-30-2024 ambulatory [facility] Start: 06-30-2024 End: 06-30-2024 Patient encounter procedure Madeline J Cristian [facility] Start: 06-21-2024 End: 06-21-2024 ambulatory [facility] Work Phone: Start: 06-21-2024 End: 06-21-2024 Patient encounter procedure [facility] Work Phone: Start: 06-14-2024 End: 06-14-2024 ambulatory Fidel IBARRA Facility:[facility] Start: 06-14-2024 End: 06-14-2024 Lab Drop off Fidel IBARRA [facility] Start: 06-14-2024 End: 06-14-2024 ambulatory Fidel IBARRA Facility:[facility] Start: 06-14-2024 End: 06-14-2024 Patient encounter procedure Fidel IBARRA [facility] Start: 06-09-2024 End: 06-09-2024 ambulatory LYN MACE Facility:[facility] Start: 06-09-2024 End: 06-09-2024 Patient encounter procedure LYN MACE [facility] Start: 05-25-2024 Non-patient / Non-visit [facility] Work Phone: Start: 05-24-2024 End: 05-25-2024 Isabelle Owen MD Work Phone: [facility] Comment on above: Migraine without aur a and without status migrainosus, not intractable Start: 05-16-2024 End: 05-16-2024 ambulatory Fidel IBARRA Facility:[id number] Start: 04-27-2024 Non-patient / Non-visit [facility] Work Phone: Start: 04-26-2024 Non-patient / Non-visit [facility] Work Phone: Start: 04-26-2024 End: 04-26-2024 ambulatory Carl BRIZUELA Facility:[id number] Start: 04-25-2024 Non-patient / Non-visit [facility] Work Phone: Start: 04-24-2024 End: 04-27-2024 Non-patient / Non-visit [facility] Work Phone: Start: 04-24-2024 Non-patient / Non-visit [facility] Work Phone: Start: 04-23-2024 Non-patient / Non-visit [facility] Work Phone: Start: 04-11-2024 End: 04-29-2024 Refill Reena Cervantes APRN-NATHEN Work Phone: [facility] Comment on above: Spinal stenosis of l umbar region with neurogenic claudication Start: 04-05-2024 End: 04-05-2024 Lab Drop off Pippa X Orzech [facility] Start: 04-05-2024 End: 04-05-2024 ambulatory Pippa X Orzech Facility:[facility] Start: 04-05-2024 End: 04-05-2024 Patient encounter procedure Pippa X Orzech [facility] Start: 03-28-2024 End: 03-28-2024 Telephone encounter Rachel Mixon CMA [facility] Start: 03-17-2024 End: 03-17-2024 Office outpatient visit 15 minutes Heidy Marin MD Work Phone: [facility] Comment on above: 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 (CMS-HCC) (Primary Dx) Start: 03-15-2024 End: 03-15-2024 ambulatory Pippa X Michealzech Facility:[facility] Start: 03-15-2024 End: 03-15-2024 Patient encounter procedure Pippa X Orzech [facility] Start: 02-25-2024 End: 02-25-2024 Telephone encounter Rachel Mixon CMA [facility] Start: 02-23-2024 End: 02-23-2024 ambulatory Fidel IBARRA Facility:[facility] Start: 02-23-2024 End: 02-23-2024 Lab Drop off Fidel IBARRA [facility] Start: 02-22-2024 End: 02-23-2024 ambulatory Fidel IBARRA Facility:[facility] Comment on above: Migraine without aur a and without status migrainosus, not intractable Start: 02-22-2024 End: 02-22-2024 Patient encounter procedure Fidel IBARRA [facility] Start: 02-18-2024 End: 02-18-2024 Telephone encounter Rachel Mixon CMA [facility] Start: 02-15-2024 End: 02-15-2024 Telephone encounter Rachel Mixon CMA [facility] Start: 02-13-2024 End: 02-15-2024 Isabelle Owen MD Work Phone: [facility] Comment on above: Migraine without aur a and without status migrainosus, not intractable Start: 02-11-2024 Non-patient / Non-visit DO Barbie eliane Bordens Work Phone: [facility] Work Phone: Start: 02-11-2024 End: 02-11-2024 Admission to same day surgery center DO Ellen Bordens Work Phone: [facility] Work Phone: Start: 02-11-2024 End: 02-11-2024 ambulatory DO Elleneliane Bordens Work Phone: [facility] Work Phone: Start: 02-10-2024 End: 02-10-2024 ambulatory [facility] Work Phone: Start: 02-10-2024 End: 02-10-2024 Patient encounter procedure [facility] [place] Work Phone: Start: 02-09-2024 End: 02-15-2024 Refill Jose Eduardo Owen MD Work Phone: [facility] Comment on above: Migraine without aur a and without status migrainosus, not intractable Start: 02-01-2024 End: 02-01-2024 ambulatory Fidel IBARRA Facility:[facility] Start: 02-01-2024 End: 02-01-2024 Patient encounter procedure Fidel IBARRA [facility] Start: 01-28-2024 End: 01-28-2024 Telephone encounter Rachel Mixon CMA [facility] Start: 01-28-2024 End: 01-28-2024 [...] with gangrene (CMS-HCC); Abdominal aortic aneurysm dissection ([facility]-HCC) Start: 01-22-2024 End: 01-22-2024 ambulatory [facility] Work Phone: Start: 01-22-2024 End: 01-22-2024 Patient encounter procedure [facility] G[facility] Work Phone: Start: 01-12-2024 Telephone encounter Rachel Mckeonedicsebastien [facility] Start: 01-11-2024 End: 01-11-2024 ambulatory Fidel IBARRA Facility:[facility] Start: 01-11-2024 End: 01-11-2024 Patient encounter procedure Fidel IBARRA [facility] Start: 01-08-2024 Telephone encounter Rachel Mckeonedicsebastien [facility] Start: 01-06-2024 Non-patient / Non-visit [facility] Work Phone: Start: 12-14-2023 End: 12-14-2023 ambulatory Fidel IBARRA Facility:[facility] Start: 12-11-2023 Refill Fidelia nicole [facility] Comment on above: Orthostasis Start: 11-17-2023 Telephone encounter Ellen Crabtree [facility] [place] Start: 11-17-2023 End: 11-17-2023 ambulatory Fidel IBARRA [facility] [employer] Other Start: 11-17-2023 End: 11-17-2023 Patient encounter procedure Fidel IBARRA [facility] Start: 11-16-2023 End: 11-16-2023 Office outpatient visit 40 minutes Reena SPEARS Work Phone: [facility] Comment on above: Parkinson's disease without dyskinesia or fluctuating manifestations (Primary Dx); Spinal stenosis of lumbar region with neurogenic claudication; Anxiety Start: 11-14-2023 Refill Samira amezquita MD Work Phone: [facility] Neu[facility] Comment on above: Parkinson's disease Start: 11-10-2023 End: 11-10-2023 ambulatory Ellen Kuns Other [employer] Other Start: 11-10-2023 Office outpatient vi sit 25 minutes Ellen Kuns [facility] [place] Start: 11-10-2023 End: 11-10-2023 Patient encounter procedure [facility]- Start: 11-09-2023 End: 11-09-2023 ambulatory Samira Bowden MD Work Phone: [employer] Comment on above: Parkinson's disease Start: 11-09-2023 Telephone encounter Ellen Kuns [facility] [place] Start: 10-21-2023 End: 10-21-2023 Lab Drop off Fidel IBARRA [facility] Start: 10-21-2023 End: 10-21-2023 ambulatory Fidel IBARRA Facility:[facility] Start: 10-05-2023 End: 10-05-2023 ambulatory Ellen Kuns Other [employer] Other Start: 10-05-2023 Telephone encounter Ellen Kuns [facility] [place] Start: 09-22-2023 End: 09-22-2023 ambulatory Ellen Kuns Other [employer] Other Start: 09-22-2023 Telephone encounter Ellen Kuns [facility] [place] Start: 09-16-2023 End: 09-16-2023 ambulatory Ellen Kuns Other [employer] Other Start: 09-16-2023 Telephone encounter Ellen Kuns [facility] [place] Start: 09-15-2023 Telephone encounter Ellen Kuns [facility] [place] Start: 09-15-2023 End: 09-15-2023 ambulatory Fidel Eunice IBARRA [facility] [employer] Other Start: 09-15-2023 End: 09-15-2023 Patient encounter procedure Fidel R IBARRA [facility] Start: 09-02-2023 End: 09-02-2023 ambulatory Ellen Michis Other [employer] Other Start: 09-02-2023 Office outpatient vi sit 25 minutes Ellen Michis [facility] Start: 08-25-2023 End: 08-25-2023 ambulatory Ellen Michis Other [employer] Other Start: 08-25-2023 Telephone encounter Ellen Crabtree [facility] Start: 08-14-2023 End: 08-14-2023 ambulatory Fidel IBARRA Facility:[facility] Start: 08-14-2023 End: 08-14-2023 Patient encounter procedure Fidel R FRED [facility] Start: 07-17-2023 End: 07-17-2023 ambulatory Fidel IBARRA Facility:[facility] Start: 07-17-2023 End: 07-17-2023 Lab Drop off Fidel Eunice IBARRA [facility] Start: 07-17-2023 End: 07-17-2023 ambulatory Fidel IBARRA Facility:[facility] Start: 07-17-2023 End: 07-17-2023 Patient encounter procedure Fidel IBARRA [facility] Start: 07-03-2023 End: 07-03-2023 ambulatory Ellen Kuns Other [employer] Other Start: 07-03-2023 Telephone encounter Ellen Kuns [facility] Start: 07-01-2023 End: 07-01-2023 ambulatory Fidel IBARRA Facility:[facility] Start: 06-19-2023 End: 06-19-2023 ambulatory Fidel IBARRA Facility:[facility] Start: 06-19-2023 End: 06-19-2023 Lab Drop off Fidel R IBARRA [facility] Start: 06-19-2023 End: 06-19-2023 ambulatory Fidel IBARRA Facility:[facility] Start: 06-19-2023 End: 06-19-2023 Patient encounter procedure Fidel Eunice FRED [facility] Start: 06-16-2023 End: 06-16-2023 ambulatory Ellen Kuns Other [employer] Other Start: 06-16-2023 Telephone encounter Ellen Kuns [facility] Start: 06-11-2023 End: 06-11-2023 ambulatory Ellen Kuns Other [employer] Other Start: 06-11-2023 Telephone encounter Ellen Kuns [facility] Start: 05-26-2023 End: 05-26-2023 ambulatory Ellen Kuns Other [employer] Other Start: 05-26-2023 Telephone encounter Ellen Kuns [facility] Start: 05-25-2023 End: 05-25-2023 Lab Drop off Fidel Eunice FRED [facility] Start: 05-25-2023 End: 05-25-2023 ambulatory Fidel IBARRA Facility:[facility] Start: 05-25-2023 End: 05-25-2023 Patient encounter procedure Fidel IBARRA [facility] [employer] Start: 05-19-2023 End: 05-19-2023 ambulatory Ellen Michis Other [employer] Other Start: 05-19-2023 Office outpatient vi sit 25 minutes Ellen Kuns [facility] Start: 04-27-2023 Telephone encounter Ellen Kuns [facility] Start: 04-27-2023 End: 04-27-2023 ambulatory Fidel IBARRA [place] [employer] Other Start: 04-27-2023 End: 04-27-2023 Patient encounter procedure Fidel IBARRA [facility] [employer] Start: 04-16-2023 End: 04-16-2023 ambulatory Ellen Kuns Other [employer] Other Start: 04-16-2023 Telephone encounter Ellen Kuns [facility] Start: 03-20-2023 End: 03-20-2023 Patient encounter procedure Fidel IBARRA [facility] [employer] Start: 03-20-2023 End: 03-20-2023 Patient encounter procedure Fidel IBARRA [facility] [employer] Start: 03-19-2023 End: 03-19-2023 ambulatory Ellen Kuns Other [employer] Other Start: 03-19-2023 Telephone encounter Ellen Kuns [facility] Start: 02-20-2023 End: 02-20-2023 Patient encounter procedure Fidel IBARRA [facility] Start: 02-17-2023 End: 02-17-2023 ambulatory Ellen Kuns Other [employer] Other Start: 02-17-2023 Telephone encounter Ellen Kuns [facility] Start: 02-16-2023 End: 02-16-2023 ambulatory Ellen Kuns Other [employer] Other Start: 02-16-2023 Telephone encounter Ellen Kuns [facility] Start: 02-11-2023 End: 02-11-2023 ambulatory Ellen Kuns Other [employer] Other Start: 02-11-2023 Telephone encounter Ellen Kuns [facility] Start: 01-30-2023 End: 01-30-2023 Patient encounter procedure Fidel IBARRA [facility] Start: 01-24-2023 Encounter for preprocedural cardiovascular examination DR FIDEL IBARRA . [facility] Start: 01-24-2023 Encounter for preprocedural laboratory examination DR FIDEL IBARRA . [facility] Start: 01-22-2023 End: 01-22-[address] FIDEL IBARRA . Facility:[facility] Start: 01-20-2023 End: 01-21-[address] FIDEL IBARRA . Facility:[facility] Start: 01-20-2023 End: 01-21-2023 Encounter for preprocedural cardiovascular examination DR FIDEL IBARRA . Facility:[facility] Start: 01-14-2023 End: 01-14-2023 ambulatory Ellen Kuns Other [employer] Other Start: 01-14-2023 Telephone encounter Ellen Kuns [facility] Start: 12-24-2022 End: 12-24-2022 Unlisted evaluation and management service Say Reyes APRN.SUPERVISOR SEWING ROOM Work Phone: Urology Comment on above: NO SHOW (Primary Dx) Start: 12-18-2022 End: 12-18-2022 ambulatory MICHELL CRABTREE . Facility: Start: 12-08-2022 End: 12-08-2022 ambulatory Ellen Kuns Other [employer] Other Start: 12-08-2022 Telephone encounter [facility] Start: 12-06-2022 ambulatory Zelda Saenz RN NURSE O N CALL Comment on above: Medication Problem Start: 12-01-2022 End: 12-01-2022 Evaluation and management of inpatient SUSIE Adrianne LOYA Facility:[facility] Start: 11-20-2022 End: 12-06-2022 Evaluation and management of inpatient ELLEN CRABTREE Facility:[facility] Start: 11-19-2022 End: 11-19-2022 ambulatory Ellen Kuns Other [employer] Other Start: 11-19-2022 Telephone encounter Ellen Kuns [facility] Start: 11-17-2022 End: 11-17-2022 ambulatory Ellen Kuns Other [employer] Other Start: 11-17-2022 Telephone encounter Ellen Kuns [facility] Start: 11-14-2022 End: 11-14-2022 ambulatory Ellen Kuns Other [employer] Other Start: 11-14-2022 Telephone encounter Ellen Kuns [facility] Start: 11-11-2022 End: 11-11-2022 ambulatory Ellen Kuns Other [employer] Other Start: 11-11-2022 Office outpatient vi sit 25 minutes Ellen Kuns [facility] [place] Start: 11-10-2022 End: 11-10-2022 ambulatory Ellen Kuns Other [employer] Other Start: 11-10-2022 Telephone encounter Ellen Kuns [facility] [place] Start: 11-05-2022 End: 11-09-2022 Evaluation and management of inpatient DR ALTON MANCINI . Facility:[facility] Start: 10-08-2022 End: 10-08-[address] DOCTOR TIPTON Facility:[facility] Start: 09-04-2022 End: 09-04-2022 ambulatory Ellen Kuns Other [employer] Other Start: 09-04-2022 Telephone encounter Ellen Kuns [facility] Start: 09-02-2022 End: 09-02-2022 ambulatory Ellen Kuns Other [employer] Other Start: 09-02-2022 Office outpatient vi sit 25 minutes Ellen Kuns [facility] [place] Start: 08-29-2022 End: 08-29-2022 ambulatory Ellen Kuns Other [employer] Other Start: 08-29-2022 Telephone encounter [facility] Start: 08-28-2022 End: 08-28-2022 ambulatory Ellen Kuns Other [employer] Other Start: 08-28-2022 Telephone encounter Ellen Kuns [facility] [place] Start: 06-17-2022 End: 06-17-2022 ambulatory Ellen Kuns Other [employer] Other Start: 06-17-2022 Telephone encounter Ellen Kuns [facility] Start: 05-21-2022 End: 05-21-2022 ambulatory Ellen Kuns Other [employer] Other Start: 05-21-2022 Telephone encounter Ellen Kuns [facility] Start: 04-08-2022 End: 04-08-2022 ambulatory Ellen Kuns Other [employer] Other Start: 04-08-2022 Telephone encounter Ellen Kuns [facility] Start: 04-03-2022 Telephone encounter Ellen Eunice Shell ns Work Phone: [facility] DO Work Phone: Start: 03-25-2022 End: 03-25-2022 ambulatory Ellen Kuns Other [employer] Other Start: 03-25-2022 Telephone encounter Ellen Kuns [facility] Start: 03-18-2022 End: 03-18-2022 ambulatory Ellen Kuns Other [employer] Other Start: 03-18-2022 Telephone encounter Ellen Kuns [facility] Start: 03-10-2022 End: 03-10-2022 ambulatory Ellen Kuns Other [employer] Other Start: 03-10-2022 Telephone encounter Ellen Kuns [facility] Start: 02-07-2022 End: 02-18-2022 Evaluation and management of inpatient FRANK ODEN [facility] Start: 02-07-2022 End: 02-18-2022 Evaluation and management of inpatient Frank Oden MD Work Phone: [facility] 7K Comment on above: Lumbar stenosis with neurogenic claudication (Primary Dx) Start: 01-27-2022 End: 01-27-2022 ambulatory Ellen Kuns Other [employer] Other Start: 01-27-2022 Encounter for other preprocedural examination Ellen Michis [facility] Start: 01-27-2022 Office outpatient vi sit 25 minutes Ellen Michis [facility] Start: 01-27-2022 Pre-procedure evalua tion check Ellen Michis Other [employer] Other Start: 01-23-2022 End: 01-24-2022 ambulatory [facility] Start: 01-23-2022 End: 01-28-2022 ambulatory [facility] Start: 01-20-2022 End: 01-20-2022 ambulatory Ellen Michis Other [employer] Other Start: 01-20-2022 Telephone encounter Elleneliane Bordens [facility] Start: 01-13-2022 End: 01-13-2022 ambulatory Ellen Michis Other [employer] Other Start: 01-13-2022 Telephone encounter Elleneliane Bordens [facility] Start: 12-05-2021 End: 12-05-2021 ambulatory Ellen Michis Other [employer] Other Start: 12-05-2021 Office outpatient vi sit 25 minutes Ellen Michis [facility] Start: 12-03-2021 [employer] Lashon Orozc[place] rne Other [facility] Office Start: 11-19-2021 [employer] [place] G Osbo rne Other [facility] Office Start: 11-11-2021 Telephone encounter Phani Henderson MD Work Phone: Pain Management Comment on above: Post Op Start: 10-23-2021 End: 10-23-2021 ambulatory Ellen Kuns Other [employer] Other Start: 10-23-2021 Telephone encounter Ellen Kuns [facility] Start: 10-07-2021 End: 10-07-2021 ambulatory Ellen Kuns Other [employer] Other Start: 10-07-2021 Telephone encounter Ellen Kuns [facility] Start: 09-30-2021 End: 09-30-2021 ambulatory Ellen Kuns Other [employer] Other Start: 09-30-2021 Telephone encounter Ellen Kuns [facility] Start: 09-27-2021 End: 09-27-2021 ambulatory Yifan Gama Other [employer] Other Start: 09-27-2021 Telephone encounter Yifan Gama [facility] Start: 09-08-2021 Chart Update Ellen R Kuns Work Phone: [facility] [employer] [address] [place] Work Phone: Start: 09-05-2021 Patient encounter procedure Ellen R Kuns Work Phone: [facility] [address] [place] Work Phone: Start: 09-03-2021 End: 09-03-2021 ambulatory Ellen Kuns Other [employer] Other Start: 09-03-2021 Telephone encounter Ellen Kuns [facility] Start: 08-27-2021 End: 08-27-2021 ambulatory Ellen Kuns Other [employer] Other Start: 08-27-2021 Office outpatient vi sit 25 minutes Ellen Kuns [facility] Start: 08-21-2021 End: 08-21-2021 ambulatory Ellen Crabtree Other [facility] [employer] Other Start: 08-21-2021 Telephone encounter Ellen Crabtree [facility] Start: 08-16-2021 Office consultation new/estab patient 80 min Ellen Crabtree Work Phone: [facility] [address] [place] Work Phone: Start: 08-16-2021 Patient encounter procedure Ellen Crabtree Work Phone: 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] Start: 06-15-2020 End: 06-15-2020 Subsequent hospital visit by physician [facility] Joana Work Phone: Radiology Comment on above: Pain in thoracic spi ne [M54.6] Start: 12-29-2017 End: 12-31-2017 Evaluation and management of inpatient [facility] Start: 12-07-2017 Ambulatory [facility] Start: 07-01-2017 End: 07-02-2017 Evaluation and management of inpatient [facility] Start: 05-30-2016 End: 06-16-2016 Ambulatory [...] 02-09-2022 End: 02-09-2022 Cortisol total Marielena Ramsey POT OPERATOR - SUPERVISOR SEWING ROOM Work Phone: Start: 02-09-2022 Gluc bld gluc mntr d ev cleared fda spec home use Frank Oden MD Work Phone: Start: 02-09-2022 Cortisol total Marcos Jorgensen MD Work Phone: Start: 02-09-2022 Blood count complete auto&auto difrntl wbc Marielena Ramsey POT OPERATOR - SUPERVISOR SEWING ROOM Work Phone: Start: 02-09-2022 Gluc bld gluc mntr d ev cleared fda spec home use Frank Oden MD Work Phone: Start: 02-08-2022 Gluc bld gluc mntr d ev cleared fda spec home use Frank Oden MD Work Phone: Start: 02-08-2022 Anion gap [Moles/Vol] J coy Ramsey POT OPERATOR - SUPERVISOR SEWING ROOM Work Phone: Start: 02-08-2022 End: 02-08-2022 Basic metabolic panel calcium total Marcos Jorgensen MD Work Phone: Start: 02-08-2022 GLOMERULAR FILTRATIO N RATE, ESTIMATED Marielena Ramsey POT OPERATOR - SUPERVISOR SEWING ROOM Work Phone: Start: 02-08-2022 SCAN OF BLOOD SMEAR Ricardo e Ramsey POT OPERATOR - SUPERVISOR SEWING ROOM Work Phone: Start: 02-08-2022 Gluc bld gluc mntr d ev cleared fda spec home use Frank Oden MD Work Phone: Start: 02-08-2022 Gluc bld gluc mntr d ev cleared fda spec home use Frank Oden MD Work Phone: Start: 02-08-2022 Radiologic exam ches t single view Marielena Menezes SUPERVISOR SEWING ROOM Work Phone: Start: 02-08-2022 Blood count hemoglobin Marielena Menezes CNP Work Phone: Start: 02-08-2022 Ecg routine ecg w/le ast 12 lds i&r only Marielena Mustafa POT OPERATOR - SUPERVISOR SEWING ROOM Work Phone: Start: 02-08-2022 Gluc bld gluc [...] [facility] [address] [place] [address] Start: 02-07-2022 Gluc bld gluc mntr d [...] spine w/ o contrast material Oumou Mcqueen POT OPERATOR.SUPERVISOR SEWING ROOM Work Phone: Start: 04-24-2020 Antibody screen Start: 10-18-2019 Antibody screen Start: 03-08-2019 Procedure on prostate P atrick FRED Start: 03-08-2019 Transurethral prostatectomy Fidel IBARRA Start: 01-25-2019 Injection of therape utic substance into bladder wall Fidel IBARRA Start: 10-19-2018 Total colonoscopy Ellen Crabtere Work Phone: Start: 02-08-2018 H/O: artificial joint [...] (3 - Td or Tdap) [facility] [employer] Start: 11-15-2028 DTaP/Tdap/Td vaccine (3 - Td or Tdap) DTaP/Tdap/Td vaccine (3 - Td or Tdap) [facility] Start: 11-15-2028 Urine microalbumin profile DTAP,TDAP,TD (3 - Td or Tdap) [facility] Start: 08-11-2026 Colonoscopy COLONOSCOPY [facility] Start: 08-11-2026 COLORECTAL CANCER SCREENING COLORECTAL CANCER SCREENING [facility] Start: 03-16-2026 Adult BMI Screening Adult BMI Screen ing [facility] Start: 03-16-2026 Tobacco Screening Tobacco Screening [facility] Start: 09-12-2025 End: 09-12-2025 Patient encounter procedure 09/12/2025 11:00 AM EST Office Visit [facility] Neurology, A Department of [address] [place] [address] Tony Martin MD [address] [place] [address], [address] [place] [address] [facility] Neurology, A Department of [facility] Start: 08-23-2025 Adult BMI Follow Up Plan Adult BMI F ollow Up Plan [facility] Start: 08-23-2025 Adult BMI Screening Adult BMI Screen ing [facility] Start: 08-23-2025 Depression Screening Depression Scre ening [facility] Start: 08-23-2025 Tobacco Screening Tobacco Screening [facility] Start: 07-26-2025 End: 07-26-2025 Patient encounter procedure 07/26/2025 10:00 AM EDT Office Visit [facility] Neurology, A Department of [address] [place] [address] Lyn Banks MD [address] [place] [address], [address] [place] [address] [facility] Neurology, A Department of [facility] Start: 07-24-2025 Urine culture [facility] Start: 07-17-2025 [facility] Start: 07-08-2025 [facility] Start: 06-29-2025 [facility] Start: 06-28-2025 Hospital admission [facility] Start: 06-28-2025 Referral to clinical hooker off [facility] Start: 06-19-2025 COVID-19 Vaccine ( season) COVID-19 Vaccine ( season) [facility] Start: 06-19-2025 Influenza vaccination Influenza Vacc ine [facility] Start: 04-25-2025 End: 04-25-2025 Patient encounter procedure 04/25/2025 3:00 PM EDT Office Visit [facility] Neurology, A Department of [address] [place] [address] Lyn Banks MD [address] [place] [address] [address] [place], [place] [id number] [facility] Neurology, A Department of [facility] Start: 03-29-2025 End: 03-29-2025 Patient encounter procedure [facility] Start: 03-17-2025 Adult BMI Screening Adult BMI Screen ing [facility] Start: 03-16-2025 End: 03-16-2026 US.doppler Extremity arteries - bilateral for physiologic artery study Vas art doppler lwr bilat mult lev/PVR Vascular Ultrasound Routine Encounter for abdominal aortic aneurysm (AAA) screening Open wound of left great toe, subsequent encounter Critical limb ischemia of left lower extremity with gangrene ([facility]) Expected: 03/16/2025, Expires: 03/16/[address] [facility] Work Phone: Comment on above: Expected: 03/16/2025 , Expires: 03/16/2026 Start: 03-16-2025 End: 03-16-2025 Patient encounter procedure [facility] Vascular Surgery Start: 03-14-2025 End: 03-14-2026 CT Head WO contrast CT brain without contrast Imaging Routine Cerebellar dysmetria Expected: 03/14/2025, Expires: 03/14/2026 [facility] Comment on above: Expected: 03/14/2025 , Expires: 03/14/2026 Start: 03-14-2025 End: 03-14-2026 RF videography Hypopharynx and Esophagus Views Fluoroscopy swallow motility function Imaging Routine Dysphagia, unspecified type Globus sensation Expected: 03/14/2025, Expires: 03/14/2026 [employer] Work Phone: Comment on above: Expected: 03/14/2025 , Expires: 03/14/2026 Start: 01-27-2025 Adult BMI Screening Adult BMI Screen ing [facility] [employer] [facility] Start: 01-27-2025 Tobacco Screening Tobacco Screening [facility] [employer] [facility] Start: 01-27-2025 End: 07-29-2025 US.doppler Aorta and Iliac artery - bilateral Vas aorta/iliac duplex complete Vascular Ultrasound Routine Encounter for screening for abdominal aortic aneurysm (AAA) in patient 50 years of age or older with history of smoking Abdominal aortic aneurysm dissection ([facility]) Expected: 01/27/2025 (Approximate), Expires: 07/29/2025 [employer] Work Phone: Comment on above: Expected: 01/27/2025 (Approximate), Expires: 07/29/2025 Start: 01-23-2025 Diabetes screen Diabetes screen [facility] Start: 12-13-2024 Urine culture [facility] Start: 12-13-2024 Bacteria identified in Urine by Culture Urine Culture [facility] Start: 11-16-2024 Depression Screening Depression Scre ening [facility] Start: 11-16-2024 Tobacco Screening Tobacco Screening [facility] [employer] [facility] Start: 09-06-2024 End: 09-06-2024 Telemedicine consultation with patient 09/06/2024 12:30 PM EST Telemedicine [facility] [address] [place] [phone] Samira Bowden MD [address] [facility], [address], [address] [place] [address] [facility] Start: 08-23-2024 End: 08-23-2024 Patient encounter procedure 08/23/2024 11:30 AM EST Office Visit [facility] [address] [place] [phone] Samira Bowden MD [address] [facility], [address], [address], [address] [place] [address] [facility] Start: 07-02-2024 Adult BMI Screening Adult BMI Screen ing [facility] Start: 07-02-2024 Tobacco Screening Tobacco Screening [facility] Start: 06-19-2024 COVID-19 Vaccine ( season) COVID-19 Vaccine ( season) [facility] Start: 06-19-2024 COVID-19 Vaccine () COVID-19 Vaccine () [facility] Start: 06-19-2024 Influenza vaccination Influenza Vacc ine [facility] Start: 04-26-2024 ambulatory Ambulatory Facility:[facility] Start: 03-17-2024 End: 03-17-2024 Patient encounter procedure 03/17/2024 11:30 AM EDT Office Visit [facility] [address] [place] [address] Heidy Marin MD [address], [address] [address] [facility] Start: 02-25-2024 End: 02-25-2024 Patient encounter procedure 02/25/2024 8:40 AM EDT Office Visit [facility] [address] [place] [address] Heidy Marin MD [address], [address] [address] [facility] Start: 02-11-2024 [facility] Start: 01-28-2024 End: 01-27-2025 US.doppler Extremity arteries - bilateral for physiologic artery study Vas art doppler lwr bilat mult lev/PVR Vascular Ultrasound Routine Critical limb 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) Expected: 01/28/2024, Expires: 01/27/2025 [facility] Comment on above: Expected: 01/28/2024 , Expires: 01/27/2025 Start: 01-28-2024 End: 01-28-2024 Patient encounter procedure 01/28/2024 9:20 AM EDT Office Visit [facility] [address] [place] [address] Heidy Marin MD [address], [address] [address] [facility] Start: 01-14-2024 End: 01-14-2024 Patient encounter procedure 01/14/2024 9:50 AM EDT Office Visit [facility] [address] [place] [address] Sergio Anguiano MD [address], [address] [address] [facility] Start: 11-29-2023 Hepatitis B surface antibody level LDL CHOLESTEROL [facility] Start: 11-16-2023 End: 11-16-2023 Patient encounter procedure 11/16/2023 1:00 PM EST Office Visit [facility] [place] [phone] Reena Cervantes, POT OPERATOR-SUPERVISOR SEWING ROOM [address] [place] [address] [facility] Start: 2023 Fall Risk Screening Fall Risk Screen ing [facility] Start: 2023 PNEUMOCOCCAL (3 - PP SV23 if available, else PCV20) PNEUMOCOCCAL (3 - PPSV23 if available, else PCV20) [facility] Start: 2023 PNEUMOCOCCAL (3 - PP SV23 or PCV20) PNEUMOCOCCAL (3 - PPSV23 or PCV20) [facility] Start: 2023 Pneumococcal 0-64 ye ars Vaccine (3 - PPSV23 or PCV20) Pneumococcal 0-64 years Vaccine (3 - PPSV23 or PCV20) [facility] Start: 08-11-2023 Adult BMI Follow Up Plan Adult BMI F ollow Up Plan [facility] Start: 08-11-2023 Depression Screening Depression Scre ening [facility] Start: 06-19-2023 COVID-19 Vaccine () COVID-19 Vaccine ( season) [facility] Start: 06-19-2023 [facility] Start: 10-19-2022 DEPRESSION ASSESSMENT DEPRESSION ASS ESSMENT [facility] Start: 01-01-2022 COVID-19 VACCINE (5 - Booster for Moderna series) COVID-19 VACCINE (5 - Booster for Moderna series) [facility] Start: 01-01-2022 COVID-19 VACCINE (6 - Moderna series) COVID-19 VACCINE (6 - Moderna series) [facility] Start: 10-25-2021 Adult depression screening assessment DEPRESSION SCREENING [facility] Start: 10-24-2021 FUV, Provider: Ren Watson, Status: Pen, Time: 10:10 AM FUV, Provider: Ren Watson, Status: Pen, Time: 10:10 AM [facility] [address] [place] Work Phone: Start: 09-05-2021 STRESS NUC, Provider : BRIGITTE SANTIZOI NUCLEAR 01,[id number], Status: Pen, Time: 12:00 PM STRESS NUC, Provider: BRIGITTE SANTIZOI NUCLEAR 01,[id number], Status: Pen, Time: 12:00 PM [facility] Work Phone: Start: 10-25-2020 Hemoglobin A1c/Hemoglobin.total in Blood HBA1C [facility] Start: 08-10-2020 ANNUAL 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 DISEASE VISIT ANNUAL PCP TEAM CHRONIC DISEASE VISIT [facility] Start: 03-16-2019 Administration of varicella zoster vaccine Zoster (Shingles) Vaccine (2 of 2) [facility] Start: 03-16-2019 Shingles vaccine (2 of 2) Shingles vaccine (2 of 2) [facility] Start: 03-16-2019 SHINGRIX VACCINE (2 of 2) SHINGRIX VACCINE (2 of 2) [facility] Start: 04-27-2018 3 comp foot exam completed DIABETIC FOOT EXAM [facility] Start: 2013 Influenza vaccination LUNG CANCER [facility] Start: 2013 PROSTATE CANCER SCREENING DISCUSSION PROSTATE CANCER SCREENING DISCUSSION [facility] Start: 2008 Influenza vaccination LUNG CANCER [facility] Start: 2008 Screening for malign ant neoplasm of lung Low dose CT lung screening [facility] Start: 2003 COLOGUARD (FIT-DNA) COLOGUARD (FIT-D NA) [facility] Start: [address] COLONOGRAPHY [facility] Start: 2003 FECAL OCCULT BLOOD FECAL OCCULT BLOO D [facility] Start: 2003 Screening for malign ant neoplasm of colon [facility] Start: 2003 SIGMOIDOSCOPY SIGMOIDOSCOPY [facility] Start: 1988 Zoledronic acid therapy ALPHA- 1 ANTITRYPSIN DEFICIENCY SCREENING [facility] Start: 1976 Adult BMI Follow Up Plan Adult BMI F ollow Up Plan [facility] Start: 1976 BP CONTROLLED (<130/80) BP CONTROLLE D (<130/80) [facility] Start: 1976 Diabetic foot examination Diabetic Foot Exam [facility] Start: 1976 Hepatitis B surface antibody level LDL CHOLESTEROL [facility] Start: 1976 HEPATITIS C SCREENING HEPATITIS C [facility] Start: 1976 Hepatitis C screening Hepatitis C [facility] Start: 1976 HIV SCREENING HIV SCREENING [facility] Start: 1976 SPIROMETRY SPIROMETRY [facility] Start: 1973 HIV screening HIV screen [facility] Start: 1970 Depression Screen Depression Screen [facility] Start: 1968 Hepatitis B screening URINE AL BUMIN:CREATININE RATIO [facility] Start: 1968 Hepatitis C antibody , confirmatory test DILATED RETINAL EXAM [facility] Start: 1968 Lipid panel Lipids [facility] Start: 1958 Annual Wellness Visi t (AWV) Annual Wellness Visit (AWV) [employer] Start: 1958 Glaucoma screening Diabetic Op hthalmology Exam [facility] [employer] [facility] Start: 1958 Medicare Annual Well ness Visit Medicare [facility] Start: [facility] Statin Use: Cardiovascular Statin Use: Cardiovascular [facility] [employer] Start: 1958 Statin Use: Diabetic Statin Use: Melly betic [facility] Start: 1958 Tobacco Counseling Tobacco Counselin g [facility] Comprehensive metabo lic 2000 panel - Serum or Plasma [facility] CT Abdomen and Pelvi s W contrast IV [facility] End: 08-23-2025 EMG With NCV EMG With NCV Neurology Routine Spinal stenosis of lumbar region with neurogenic claudication 1 Occurrences starting 08/23/2024 until 08/23/2025 [employer] Work Phone: Comment on above: 1 Occurrences starti ng 08/23/2024 until 08/23/2025 Glucose [Mass/volume ] in Serum or Plasma [facility] Work Phone: Comment on above: 4X Daily (AC & HS) u ntil discontinued starting 02/11/2022, 27 completed As Needed until disc ontinued starting 02/11/2022 Glucose measurement estimated from glycated hemoglobin [facility] Hemoglobin A1c/Hemoglobin.total in Blood [facility] Home BIPAP or CPAP Home BIPAP or CPAP Respiratory Care Routine QHS until discontinued starting 02/16/2022 [employer] Phone: Comment on above: QHS until discontinu ed starting 02/16/2022 Oxygen therapy [[facility] Data Set] Initiate Oxygen Therapy Protocol Respiratory Care Routine As Needed until discontinued starting 02/07[facility]22 [facility] Comment on above: As Needed until disc ontinued starting 02/07/2022 Patient Education [facility] Work Phone: Patient referral [facility] Work Phone: [facility] Immunizations Immunization Date Immunization Notes Care Provider Titi celinemarnie 11-21-2024 influenza, high dose seasonal, preservative-free Ellen Kuns DO Work Phone: [facility] 11-21-2024 influenza virus vaccine, unspecified formulation Lyn Banks MD Work Phone: [employer] 11-10-2023 influenza, high dose seasonal, preservative-free Ellen Kuns Other [facility] 11-10-2023 influenza virus vaccine, unspecified formulation [facility] 10-21-2022 pneumococcal conjuga te vaccine, 13 valent Fidel IBARRA [facility] 09-18-2022 influenza virus vaccine, unspecified formulation Fidel IBARRA [facility] 09-02-2022 influenza, injectabl e, quadrivalent, contains preservative Ellen Kuns Other [facility] 09-02-2022 influenza virus vaccine, unspecified formulation Fidel IBARRA [facility] 09-02-2022 influenza, injectabl e, quadrivalent, preservative free [facility] 11-06-2021 COVID-19, Moderna, 100mcg/0.5ml [facility] 10-15-2021 influenza virus vaccine, unspecified formulation Fidel IBARRA [facility] 10-15-2021 Influenza, injectabl e, Madin Ninfa Canine Kidney, preservative free, quadrivalent Ellen R Leyda Work Phone: [facility] 10-15-2021 Moderna COVID-19 Vaccine 100 MCG/0.5ML Intramuscular Suspension Ellen R Leyda Work Phone: [facility] 01-30-2021 COVID-19, Moderna, 100mcg/0.5ml [facility] [employer] 01-09-2021 COVID-19 Vaccine Moderna - Documentation Purposes Only Ellen Kuns Other [facility] 01-02-2021 COVID-19, Moderna, 100mcg/0.5ml [facility] [employer] 12-13-2020 COVID-19 Vaccine Moderna - Documentation Purposes Only Ellen Kuns Other [facility] 07-17-2020 influenza virus vaccine, unspecified formulation Fidel IBARRA [facility] 07-17-2020 influenza, injectabl e, quadrivalent, contains preservative Ellen Kuns Other [facility] 07-17-2020 influenza, injectabl e, quadrivalent, preservative free [facility] 04-12-2020 Toradol per 15 mg Ellen Kuns Other [employer] Other 08-24-2019 influenza virus vaccine, unspecified formulation Fidel IBARRA [facility] 08-24-2019 influenza, high dose seasonal, preservative-free Ellen Kuns Other [facility] 01-19-2019 zoster vaccine recombinant Ellen Kuns Other [facility] 01-19-2019 zoster vaccine, unspecified formulation Samira Bowden MD Work Phone: [employer] 11-15-2018 pneumococcal conjuga te vaccine, 13 valent Phani Henderson MD Work Phone: [facility] 11-15-2018 tetanus toxoid, redu whitney diphtheria toxoid, and acellular pertussis vaccine, adsorbed Phani Henderson MD Work Phone: [facility] 07-07-2018 influenza virus vaccine, unspecified formulation Fidel IBARRA [facility] 07-07-2018 influenza, injectabl e, quadrivalent, contains preservative Ellen Kuns Other [facility] 07-07-2018 influenza, injectabl e, quadrivalent, preservative free [facility] 05-06-2018 Toradol per 15 mg Ellen Kuns Other [employer] Other 10-03-2017 Toradol per 15 mg Ellen Kuns Other [employer] Other 09-17-2017 Toradol per 15 mg Ellen Kuns Other [employer] Other 07-01-2017 influenza virus vaccine, unspecified formulation Fidel IBARRA [facility] 07-01-2017 influenza, injectabl e, quadrivalent, preservative free Ellen R Kuns Work Phone: [facility] 03-24-2017 Toradol per 15 mg Ellen Kuns Other [employer] Other 01-29-2017 Toradol per 15 mg Ellen Kuns Other [employer] Other 12-25-2016 Toradol per 15 mg Ellen Kuns Other [employer] Other 08-12-2016 influenza virus vaccine, unspecified formulation Fidel IBARRA [facility] 08-12-2016 influenza, high dose seasonal, preservative-free Ellen R Kuns Work Phone: [facility] 08-12-2016 influenza, injectabl e, quadrivalent, preservative free [facility] 08-12-2016 Toradol per 15 mg Ellen Kuns Other [employer] Other 08-12-2016 influenza, injectabl e, quadrivalent, contains preservative Ellen Kuns Other [employer] Other 01-17-2016 Toradol per 15 mg Ellen Kuns Other [employer] Other 10-22-2015 tetanus toxoid, redu whitney diphtheria toxoid, and acellular pertussis vaccine, adsorbed Ellen Kuns Other [facility] 10-22-2015 Toradol per 15 mg Ellen Kuns Other [employer] Other 07-23-2015 influenza virus vaccine, unspecified formulation Fidel IBARRA [facility] 07-23-2015 influenza, injectabl e, quadrivalent, preservative free Ellen R Kuns Work Phone: [facility] 07-23-2015 influenza, injectabl e, quadrivalent, contains preservative Ellen Kuns Other [employer] Other 10-26-2014 influenza, injectabl e, quadrivalent, preservative free [facility] 10-26-2014 Toradol per 15 mg Ellen Kuns Other [employer] Other 10-26-2014 influenza, injectabl e, quadrivalent, contains preservative Ellen Kuns Other [employer] Other 07-11-2014 Toradol per 15 mg Ellen Kuns Other [employer] Other 06-27-2014 Toradol per 15 mg Ellen Kuns Other [employer] Other 04-20-2014 Toradol per 15 mg Ellen Kuns Other [employer] Other 01-18-2013 Toradol per 15 mg Ellen Kuns Other [employer] Other 09-15-2012 influenza virus vaccine, split virus (incl. purified surface antigen) Ellen Kuns Other [employer] Other 09-15-2012 influenza virus vaccine, unspecified formulation [facility] 07-15-2010 influenza virus vaccine, unspecified formulation Phani Henderson MD Work Phone: [facility] 08-24-2009 novel [id number], preservative-free, injectable Ellen R Kuns Work Phone: [facility] 08-16-2002 hepatitis B vaccine, adult dosage Ellen R Kuns Work Phone: [facility] 01-27-2002 hepatitis B vaccine, adult dosage Ellen R Kuns Work Phone: [facility] 08-13-1995 pneumococcal polysaccharide vaccine, 23 valent Ellen Kuns Other [facility] Payers Date Payer Category Payer Self-pay [id number] 2023 Commercial Indemnity [facility] [id number] 2023 Private Health Insurance [id number] 2023 Unknown [id number] 2021 Medicare AETNA MEDICARE A ETNA MEDICARE HMO [id number] 2021-Present [phone] [address] [place] [address] O [id number]. [id number] 2019 Medicare [id number]. [id number]. [id number] 2004 Unknown 1959 Medicare [id number] 2.16.840.1.257786.3.441 1959 Medicare [id number] 1959 Unknown [id number] 1958 Unknown [id number] 2.16.840.1.354342.3.579.2. 93 1958 Unknown [id number] 2.16.840.1.604387.3.579.2. 93 1958 Unknown [id number] 2.16.840.1.065073.3.579.2. 93 1958 Unknown [id number] 2.16.840.1.914279.3.579.2. 593 1958 Unknown [id number] 2.16.840.1.822083.3.579.2. 593 1958 Unknown [id number] 2.16.840.1.542944.3.579.2. 593 1958 Unknown [id number] 2.16.840.1.641310.3.579.2. 593 1958 Unknown [id number] 2.16.840.1.450050.3.579.2. 593 1958 Unknown [id number] 2.16.840.1.884767.3.579.2. 727 1958 Unknown [id number] 2.16.840.1.710028.3.579.2. 72 1958 Unknown [id number] 2.16.840.1.318453.3.579.2. 72 1958 Unknown [id number] 2.16.840.1.572823.3.579.2 72 1958 Unknown [id number] 2.16.840.1.984398.3.579.2. 72 1958 Unknown [id number] 2.16.840.1.810577.3.579.2 72 1958 Unknown [id number] 2.16.840.1.933435.3.579.2. 72 1958 Unknown [id number] 2.16.840.1.920516.3.579.2. 72 1958 Unknown [id number] 2.16.840.1.618873.3.579.2. 72 1958 Unknown [id number] 2.16.840.1.135748.3.579.2. 72 1958 Unknown [id number] 2.16.840.1.792072.3.579.2. 72 1958 Unknown [id number] 2.16.840.1.124031.3.579.2. 72 1958 Unknown [id number] 2.16.840.1.436691.3.579.2. 72 1958 Unknown [id number] 2.16.840.1.683591.3.579.2. 727 1958 Unknown [id number] 2.16.840.1.120848.3.579.2. 1958 Unknown [id number] 2.16.840.1.003599.3.579.2. 1958 Unknown [id number] 2.16.840.1.567893.3.579.2. 1958 Unknown [id number] 2.16.840.1.356671.3.579.2. 1958 Unknown [id number] 2.16.840.1.495378.3.579.2 1958 Unknown [id number] 2.16.840.1.799490.3.579.2 1958 Unknown [id number] 2.16.840.1.140657.3.579.2 1958 Unknown [id number] 2.16.840.1.867101.3.579.2 1958 Unknown [id number] 2.16.840.1.746897.3.579.2 1958 Unknown [id number] 2.16.840.1.219461.3.579.2 1958 Unknown [id number] 2.16.840.1.295758.3.579.2 1958 Unknown [id number] 2.16.840.1.176338.3.579.2. 1958 Unknown [id number] 2.16.840.1.591761.3.579.2 1958 Unknown [id number] 2.16.840.1.504482.3.579.2 1958 Unknown [id number] 2.16.840.1.648679.3.579.2 1958 Unknown [id number] 2.16.840.1.771580.3.579.2. 727 1958 Unknown [id number] 2.16.840.1.861257.3.579.2. 727 1958 Unknown [id number] 2.16.840.1.406360.3.579.2. 727 1958 Unknown [id number] 2.16.840.1.784162.3.579.2. 72 1958 Unknown [id number] 2.16.840.1.903126.3.579.2. 72 1958 Unknown [id number] 2.16.840.1.673376.3.579.2. 72 1958 Unknown [id number] 2.16.840.1.017596.3.579.2. 1958 Unknown [id number] 2.16.840.1.911243.3.579.2. 72 1958 Unknown [id number] 2.16.840.1.689940.3.579.2. 1958 Unknown [id number] 2.16.840.1.782023.3.579.2. 1286 1958 Unknown [id number] 2.16.840.1.195201.3.579.2. 128 1958 Unknown [id number] 2.16.840.1.168177.3.579.2. 128 1958 Unknown [id number] 2.16.840.1.562377.3.579.2. 128 1958 Unknown [id number] 2.16.840.1.798184.3.579.2. 1286 1958 Unknown [id number] 2.16.840.1.029341.3.579.2. 72 1958 Unknown [id number] 2.16.840.1.941560.3.579.2. 727 1958 Unknown [id number] 2.16.840.1.059523.3.579.2. 727 1958 Unknown [id number] 2.16.840.1.467000.3.579.2. 727 1958 Unknown [id number] 2.16.840.1.731747.3.579.2. 727 1958 Unknown [id number] 2.16.840.1.818878.3.579.2. 727 1958 Unknown [id number] 2.16.840.1.395945.3.579.2. 72 1958 Unknown [id number] 2.16.840.1.873842.3.579.2. 72 1958 Unknown [id number] 2.16.840.1.046923.3.579.2. 727 1958 Unknown [id number] 2.16.840.1.045111.3.579.2. 727 1958 Unknown [id number] 2.16.840.1.930458.3.579.2. 727 Unknown O [id number] Unknown [id number] 2.16.840.1.112445.3.579.2. 531 Unknown [id number] 2.16.840.1.303830.3.579.2. 531 Unknown [id number] 2.16.840.1.473112.3.579.2. 531 Unknown [id number] 2.16.840.1.809915.3.579.2. 531 Unknown [id number] 2.16.840.1.495247.3.579.2. 531 Unknown [id number] 2.16.840.1.490503.3.579.2. 531 Social History Date Type Detail Facility Start: 04-15-2017 End: 11-08-2020 No alcohol use No alcohol use [facility] Comment on above: Coffee 3 cups daily; 6 ciggs daily; Start: End: 07-13-2025 Smoker Randi Aquaspy Start: 04-15-2017 End: 01-28-2024 Tobacco smoking status NHIS Smokes tobacco daily [facility] Start: 12-07-1982 History of tobacco use Cigarette Smo ker [facility] Start: 04-15-2017 End: 03-16-2025 Tobacco use and exposure Smokeless tobacco non-user [facility] Start: 05-29-2020 End: 10-10-2021 Alcohol intake Current non-drinker of alcohol (finding) [facility] Start: 05-04-2020 End: 11-25-2022 History SDOH Financial 4 [facility] Start: 05-04-2020 End: 11-25-2022 History SDOH Food Worry 1 [facility] Start: 05-04-2020 End: 11-25-2022 History SDOH Transport Med 2 [facility] Start: 06-21-2020 Tobacco Comment currently 8 ci garettes a day [facility] Start: 1960 Sex Assigned At Not on file [facility] Start: 05-22-2020 End: 02-07-2022 Exposure to SARS-CoV-2 (event) Not sure [facility] Start: 02-09-2022 Alcohol intake Lifetime non-d margarita (finding) [employer] Work Phone: Start: 05-12-2019 End: 11-08-2020 Sex Assigned At [facility] Start: 01-16-2023 End: 06-29-2025 Tobacco smoking status Ex-smoker (finding) [facility] Tobacco smoking status Never [facility] How hard is it for y ou to pay for the very basics like food, housing, medical care, and heating Not very hard [facility] (I/We) worried heriberto er (my/our) food would run out before (I/we) got money to buy more. Never true [facility] Start: 04-24-2020 Tobacco Comment currently 1/2 pack day since 01/2020 [facility] Start: 05-05-2020 End: 06-04-2020 Exposure to SARS-CoV-2 (event) Unable to assess [facility] Start: 1960 Sex Assigned At Male F [facility] History of tobacco use Current smoker [facility] [employer] [facility] Start: 08-23-2024 End: 03-16-2025 Alcoholic beverage intake Ex-drinker (finding) [facility] Start: 02-03-2021 End: 01-28-2024 Tobacco Comment 8 cigs per day [facility] Start: 01-30-2010 End: 11-08-2020 [facility] (finding) [facility] Sexual Orientation [facility] Medical Equipment Procedure Code Equipment Code Equipment Origin al Text Equipment Identifier Dates Restrictor 24mm Medium [place] Revision Plug Hip - [id number] Start: 04-27-2017 Cement Simplex P Tobramycin Bone Full Dose Radiopaque Preblend Sterile - [id number] Start: 04-27-2017 Restrictor 30mm Large [place] C[place] Revision Plug Hip - [id number] Start: 04-27-2017 Cement Simplex P Speedset Bone Radiopaque Sterile - [id number] Start: 12-29-2017 Ddc-Tb-K-Kind Implant - [id number] Start: 06-05-2016 Comment on above: Description: NEVRO C ORP. N300 LEAD ANCHOR KIT Head Global Unit e 52mm Standard 18mm Humeral - [id number] Start: 12-29-2017 Nevro Surgical L ead Kit [id number] Start: 03-16-2018 Head V40 28mm -2 .7mm Offset Taper Biolox Delta Femoral Hip - [id number] Start: 11-08-2019 Liner 46mm F Dylon r Acetabular Modular Dual Mobility Primary Hip - [id number] Start: 11-08-2019 Insert Adm Mobil e Bearing Hip [facility] 52mm 28mm 0d X3 8.9mm Acetabular - [id number] Start: 11-08-2019 Insert Adm Mobil e Bearing Hip [facility] 52mm 28mm 0d X3 8.9mm Acetabular - [id number] Start: 05-03-2020 Head V40 28mm +4 mm Offset Taper Biolox Delta Femoral Hip - [id number] Start: 05-03-2020 Liner 46mm F Dylon r Acetabular Modular Dual Mobility Primary Hip - [id number] Start: 05-03-2020 Stem Triathlon 1 2mm Cocr 100mm Femoral Cemented Total Stabilized Knee - [id number] Start: 04-27-2017 Stem Triathlon 1 5mm Cocr 50mm Femoral Cemented Total Stabilize Knee - [id number] Start: 04-27-2017 Component Triath oscar 7 Cocr Femoral Total Stabilize Knee Left - [id number] Start: 04-27-2017 Augment Triathlo n 7 5mm Femoral Total Stabilize Knee Posterior - [id number] Start: 04-27-2017 Augment Triathlo n 7 5mm Femoral Total Stabilize Knee Left - [id number] Start: 04-27-2017 Augment Triathlo n 7 5mm Femoral Total Stabilize Knee Left - [id number] Start: 04-27-2017 Augment Triathlo n 6 10mm Tibial Total Stabilize Right Medial Left Lateral - [id number] Start: 04-27-2017 Baseplate Triath oscar 6 [place] Cocr Tibial Total Stabilize Cemented Knee - [id number] Start: 04-27-2017 Augment Triathlo n 6 10mm Tibial Total Stabilize Left Medial Right Lateral - [id number] Start: 04-27-2017 Insert Triathlon 6 X3 16mm Tibial Total Stabilize Plus Knee - [id number] Start: 04-27-2017 Component Triath oscar 7 Pa Femoral Cruciate Retain Bead Knee Right - [id number] Start: 07-01-2017 Insert Triathlon 6 X3 13mm Tibial Condylar Stabilized Knee - [id number] Start: 07-01-2017 Baseplate Triath oscar 6 Tritanium [id number] Tibial 4 Cruciform Peg Keel Knee - [id number] Start: 07-01-2017 Component Tritan ium 35mm Metal 10mm Patellar Asymmetric Knee - [id number] Start: 07-01-2017 Component Triath oscar 35mm 10mm Patellar Asymmetric Knee - [id number] Start: 04-27-2017 Head 48mm 7mm Humeral [place] Peg Left Glenoid - [id number] Start: 12-29-2017 Stem Global Ap 1 2mm Porocoat 137mm Humeral Arthroplasty System Shoulder - [id number] Start: 12-29-2017 Assembly Global Ap 135d Taper Fix Shoulder Arthroplasty System - [id number]_imp Start: 12-29-2017 Augment Triath T ib Cone Sz A - [id number] Start: 04-27-2017 Stem Accolade Ii 7 127d Femoral - [id number] Start: 11-08-2019 Shell Trident Ii 56mm F Tritanium Acetabular 5 Screw Hole Cluster Sterile - [id number] Start: 11-08-2019 Stem Accolade Ii 7 127d Femoral - [id number] Start: 05-03-2020 Shell Trident Ii 56mm F Tritanium Acetabular 5 Screw Hole Cluster Sterile - [id number] Start: 05-03-2020 Lead 50cm Nevro - [id number] Start: 05-08-2016 Comment on above: Description: 50 Lead 50cm Nevro - [id number] Start: 06-05-2016 Comment on above: Description: NEVRO B LUE PERC LEAD KIT Lead 50cm Nevro - [id number] Start: 06-05-2016 Comment on above: Description: NEVRO B LUE PERC LEAD KIT Gnrtr Nrstm Ipg Kit Nevro - [id number] Start: 06-05-2016 Comment on above: Description: NEVRO N IPG KIT Screw Spinal Streamline 7.5x55mm - [id number]_imp Start: 02-07-2022 Set Scr Spnl Ti Streamline - [id number] Start: 02-07-2022 Screw Spnl L45mm Dia7.5mm Thorlum Ti Ally Polyax Streamline - [id number] Start: 02-07-2022 Screw Spnl L50mm Dia7.5mm Thorlum Ti Ally Polyax Streamline - [id number] Start: 02-07-2022 Ta Spnl L120mm Ltf14eg Thorlum Prebent Streamline - [id number]_imp Start: 02-07-2022 Ta Spnl L100mm Uto84oq Thorlum Prebent Streamline - [id number] Start: 02-07-2022 Syringe With Nee dle [...] Facility 09-27-2024 Functional Status N/A [facility] 03-15-2024 Functional Status N/A [facility] 03-20-2023 Functional Status N/A [facility] 02-20-2023 Functional Status N/A [facility] 01-30-2023 Functional Status N/A [facility] Clinical Notes 06-07-2012 to 07-13-2025 Telephone Encounter - Julianna Barnes - 07/13/2025 4:08 PM EDTTelephone Encounter - Julianna Barnes - 07/13/2025 4:08 PM EDT Note Date & Type Note Facility 07-13-2025 Miscellaneous Notes Formattin g of this note might be different from the original. Nurse contacted patient's spouse and informed her that there are refills remaining on prescription. documented in this encounter [facility] 07-13-2025 Telephone encount er Note Nurse contacted patient's spouse and informed her that there are refills remaining on prescription. [facility] 07-06-[address] [facility] 06-28-2025 Evaluation note Diagnosis Onset [...] er 2024 1:44pm Neurogenic bladder acute Septem 2024 1:44pm Neurogenic bowel acute Septembe r 2024 1:44pm Obesity acute June 1:44pm Parkinsons acute June 1:44pm Recurrent UTI acute June 192024 1:44pm [facility] Work Phone: 1(183) 181-718209-10-2025 NotePhysical Therapy Cancel 06/28/25 1140 General Missed Time Reason Other (Comment) PT Assessment PT Assessment/PUBLIC OPINION SURVEY TAKER Summary Pt discharging within the hour, no therapy services provided. Khushbu Garcia, [facility]TAUnGenesis [facility]09-10-2025 NotePt state he would like to save energy for his transfer to another facility this afternoon, pt decline therapy. Check no charge.[facility]09-10-2025 [facility]Un[facility]-09-2025 [facility] 06-27-2025 NoteNeurology Brief Update note - no further recommendations, will sign off, please have the patient follow up with his outpatient Neurologist in 4-6 weeksUnGen[facility] 06-27-2025 NoteDischarge Planning: Dental Hygienist spoke with Lynette in admission at [facility] and faxed over updated progress notes through [facility] awaiting acceptance and be availability. [facility]09-09-2025 [facility]-09-20[facility]-08-2025 Note [facility]09-08-2025 [facility]-08-2025 NoteUn[facility]09-08-2025 Note [facility] [facility]2025 Note [facility]09-07-[facility]-2025 Note [facility]09-06-2025 NoteDischarge Planning: Plan is to wean the patient off the TPN with anticipated discharge tomorrow or Thursday. Dental Hygienist left a message for [facility] to see if they can accept. Referral was made through [facility] on 06/22/25.[facility]09-06-2025 [facility]09-06-2025 NoteGeneral Surgery requesting pt be weaned from TPN which is currently providing ~75% estimated needs. Tolerating FLD. Recommend decreasing rate 60->30 ml/hr x 2 hr then discontinue. Check BG POC one hour after. Consider advancing to pureed diet.[facility]09-06-2025 Note[facility]-2025 Note[facility]09-05-2025 Note [facility] will not accept TPN.[facility]09-05-20[facility]09-05-2025 [facility]-05-2025 [facility]09-04-2025 Note [facility]09-04-2025 Note[facility]-2025 Note[facility]09-04-2025 Note [facility]09-04-2025 Note[facility]09-03-2025 [facility]09-03-2025 Note [facility]09-03-2025 [facility]09-03-2025 [facility]09-03-2025 Note [facility]09-03-2025 Note[facility]09-02-2025 Note[facility]09-02-2025 Note [facility]09-02-2025 Note[facility]09-02-2025 [facility]09-02-2025 Note [facility]09-01-2025 [facility]09-01-2025 [facility]09-01-2025 Note [facility]08-31-2025 [facility]08-31-2025 [facility]08-30-2025 Note [facility]08-30-2025 [facility]08-30-2025 [facility]08-30-2025 Note [facility]08-29-2025 NotePatient left for the OR. I started FFP prior to him leaving.[facility]08-29-2025 [facility]Un[facility]08-28-2025 NoteUn[facility]08-28-2025 NoteUn[facility]08-28-2025 Note Peripheral IV Date/Time: 06/15/2025 4:19 PM Inserted by: Leda Pitts MD Placement Needle size: 14 G Laterality: right Location: external jugular Local anesthetic: none Site prep: alcohol Technique: anatomical landmarks Attempts: 1Un[facility]08-28-2025 NoteTri[facility]08-25-2025 Note[facility] 06-06-2025 Miscellaneous Notes* Telephone Encounter - Eliane Ken - 06/06/2025 9:37 AM EDT Received referral from Dr. Banks for patient to see Dr. Martin for : Chronic intractable headache, unspecified headache type Please call to schedule -established with new patient time * Telephone Encounter - Sal Frances - 06/06/2025 9:37 AM EDT Patient scheduled: 09/12/25 11:[address] Martin documented in this encounterBerger Hospital08-19-2025 Telephone encounter Note* Telephone Encounter - Eliane Ken - 06/06/2025 9:37 AM EDT Received referral from Dr. Banks for patient to see Dr. Martin for : Chronic intractable headache, unspecified headache type Please call to schedule -established with new patient time [facility]08-19-2025 Telephone encounter Note* Telephone Encounter - Sal Frances - 06/06/2025 9:37 AM EDT Patient scheduled: 09/12/25 11:[address] Martin [facility]08-18-2025 [facility]Tri[facility] 04-25-2025 NoteTri[facility]06-18-2025 NoteTri[facility]06-17-2025 Miscellaneous Notes* Telephone Encounter - Julianna Barnes - 04/04/2025 1:42 PM EDT Refill request : traMADoL (ULTRAM) 50 mg tablet Last Filled : 09/30/2024 Last OV : 03/14/2025 Next OV : 04/25/2025 Reviewed by FILLING MACHINE TENDER. Pend for signature. * Telephone Encounter - Julianna Barnes - 04/04/2025 1:42 PM EDT Dental Hygienist phoned in medication to pharmacy. Patient notified. documented in this encounterBerger Hospital06-17-2025 Telephone encounter Note* Telephone Encounter - Julianna Barnes - 04/04/2025 1:42 PM EDT Refill request : traMADoL (ULTRAM) 50 mg tablet Last Filled : 09/30/2024 Last OV : 03/14/2025 Next OV : 04/25/2025 Reviewed by FILLING MACHINE TENDER. Pend for signature. [facility]06-17-20[facility] Telephone encounter Note* Telephone Encounter - Julianna Barnes - 04/04/2025 1:42 PM EDT Dental Hygienist phoned in medication to pharmacy. Patient notified. [facility]05-29-2025 Evaluation + Plan note* Assessment & Plan Note - Heidy Marin MD - 03/16/2025 11:16 AM EDTAssociated Problem(s): Open wound of left great toe PVR with toe pressure [facility]05-29-2025 Evaluation + Plan note* Assessment & Plan Note - Heidy Marin MD - 03/16/2025 11:16 AM EDTAssociated Problem(s): Encounter for abdominal aortic aneurysm (AAA) screening No abdominal aortic aneurysms on screening duplex ultrasound. [facility]05-29-2025 Miscellaneous Notes* Assessment & Plan Note - Heidy Marin MD - 03/16/2025 11:16 AM EDTAssociated Problem(s): Open wound of left great toe PVR with toe pressure * Assessment & Plan Note - Heidy Marin MD - 03/16/2025 11:16 AM EDT Associated Problem(s): Encounter for abdominal aortic aneurysm (AAA) screening No abdominal aortic aneurysms on screening duplex ultrasound. documented in this encounterBerger Hospital05-29-2025 History of Present illness Narrative* Heidy Marin MD - 03/16/2025 9:10 AM EDT Images from the original note were not included. To: ELLEN CRABTREE, HPI: Alisia Correa Sr. is a 64 [...] DOSE. TAKE ALONG WITH SINEMET CR. 180 [id number] diclofenac (VOLTAREN) 75 mg EC tablet Take [...] Past Medical History: Diagnosis Date Diabetes mellitus ([facility] [place] [place]) Diabetes mellitus type 2, controlled ([facility] [place] [place]) HL (hearing loss) Hypertension Kidney stones Migraine Parkinson's disease ([facility] [place] [place]) Spinal stenosis Past Surgical History: Past Surgical [...] Low Risk (11/25/2022) Received from [facility] Overall Financial Resource Strain (CARDIA) Difficulty of Paying Living Expenses: Not very hard Food Insecurity: No Food Insecurity (03/16/2025) Hunger Screening Food Insecurity - Worry: Never True Food Insecurity - Inability: Never True Transportation Needs: No Transportation Needs (11/25/2022) Received from [facility] PRAPARE - Transportation Lack of Transportation (Medical): No Lack of Transportation (Non-Medical): No Physical Activity: Not on file Stress: Not on file Social Connections: Not on file Interpersonal Safety: Not on file Housing Instability: Low Risk (11/25/2022) Received from [facility] Housing Stability Vital Sign Unable to [...] you for your understanding. documented in this encounterBerger Hospital05-27-2025 History of Present illness Narrative* Lyn Banks MD - 03/14/2025 3:00 PM EDT Images from the original note were not included. [address] [facility] [address] Patient: Alisia Correa Sr. Date of : [...] 14 2 PTSD: No data to display [place]: No data to display TONIA-10: No data to display Past Medical, Family, Surgical, and Social History Update: The following portions of the patient's history were reviewed and updated as appropriate: allergies, current medications, past family history, past medical history, past social history, past surgicalhistory and problem list. Past Medical History: Diagnosis Date Diabetes mellitus ([facility] [place] [place]) Diabetes mellitus type 2, controlled ([facility] [place] [place]) HL (hearing loss) Hypertension Kidney stones Migraine Parkinson's disease ([facility] [place] [place]) Spinal stenosis No family history on file. [...] DOSE. TAKE ALONG WITH SINEMET CR. 180 ljcecw55 diclofenac (VOLTAREN) 75 mg EC tablet Take [...] procedures Referring and communicating with other health rn primary care (not separately reported) Documenting clinical information in [...] you for your understanding. documented in this encounterBerger Hospital05-27-2025 Instructions* Patient Instructions* Lyn Banks MD - 03/14/2025 3:00 PM EDT Wear thigh high compression socks 20mmHg during the day, remove for bed time. Swallow study. Call to schedule appointment with Dr. Espinoza at [facility] (dysautonomia specialist). Magnesium citrate solution- drink 1 [...] and 6pm. CT head documented in this encounterBerger Hospital04-30-2025 Radiology Diagnostic study [facility] [place] [address] [place] [address] CT Scan Report Signed Patient: Alisia Correa SR MR#: [id number] : 1960 Acct:[id number] Age/Sex: 64 / M ADM Date: 5 Loc: CT Room: Type: [facility] Attending Dr: Romel Leonardo MD Copies to: [...] excluded. Impression dictated by: Steven Shah Jr., D.OAlejandro 02/15/2025 3:42 PM Dictation Location: [place] [address] Transcribed By: [facility] 02/15/25 1542 Dictated By: Steven Shah Jr, 02/15/25 1538 Signed By: 02/15/25 1542 [facility]03-13-2025 Evaluation note* Diagnosis Onset Date Resolution [...] Recurrent UTI acute January 30, 2025 1:55pm [facility] Work Phone: 1(703) 553-772103-11-2025 NotePatient Education Obstetrics and Gynecology Urinary Tract [...] this condition includes: ??? Antibiotic medicine. ??? Jsyq-jdi-xgrvztd medicines to treat discomfort. ??? Drinking enough [...] these instructions at home: Medicines ??? Take cdyf-yhy-mixdndg and prescription medicines only as told by [...] Make sure you di (more content not included)...[facility]02-10-2025 Hospital Discharge instructions Patient Education 11/28/2024 [...] provider. Document Revised: 05/05/2023 Document Reviewed: 05/05/2023 Elsevier Patient Education 2023 weendy. Follow Up Care 11/25/2024 08:07:08 With:RODRI KHAN, LYN Crum, URL Address: [place] [address] When:Within 1 Month(s) [facility] 02-10-2025 NotePatient Education Caregiving Antibiotic Medicine, Adult [...] ??? You have sig (more content not included)...[facility] 11-23-2024 Miscellaneous Notes* Telephone Encounter - Susie Andino RN - 11/23/2024 2:04 PM EST Contacted pt because last script was sent to pharmacy with 11 refills. Pt stated that the pharmacy didn't have any refills left. Contacted pharmacy and they stated that they did have refills left andwill fill the medication for pt. documented in this encounterBerger Hospital02-05-2025 Telephone encounter Note* Telephone Encounter - Susie Andino RN - 11/23/2024 2:04 PM EST Contacted pt because last script was sent to pharmacy with 11 refills. Pt stated that the pharmacy didn't have any refills left. Contacted pharmacy and they stated that they did have refills left andwill fill the medication for pt. [facility] [employer] [id number] Miscellaneous Notes* Telephone Encounter - Julianna Barnes - 11/19/2024 3:03 PM EST Refill request : carbidopa-levodopa (SINEMET CR) 25-100 mg per CR tablet Last Filled : 08/31/2024 240 tablets +11 refills Refill too soon. Refills remaining at the pharmacy. documented in this encounterBerger Hospital02-01-2025 Telephone encounter Note* Telephone Encounter - Julianna Barnes - 11/19/2024 3:03 PM EST Refill request : carbidopa-levodopa (SINEMET CR) 25-100 mg per CR tablet Last Filled : 08/31/2024 240 tablets +11 refills Refill too soon. Refills remaining at the pharmacy. [facility] [employer] [id number] Miscellaneous Notes* Telephone Encounter - Susie Andino RN - 10/24/2024 2:28 PM EST Verified with pharmacy that they received the midodrine script. Pharmacy is working on filling the medication. documented in this encounterBerger Hospital01-06-2025 Telephone encounter Note* Telephone Encounter - Susie Andino RN - 10/24/2024 2:28 PM EST Verified with pharmacy that they received the midodrine script. Pharmacy is working on filling the medication. [facility]12-10-2024 Hospital Discharge instructions Patient Education 09/27/2024 [...] provider. Document Revised: 12/25/2021 Document Reviewed: 09/20/2021 [employer] Patient Education 2021 weendy. Follow Up Care 08/30/2024 12:29:01 With:RODRI KHAN, LYN Crum, URL Address: [facility] [address] [facility] [place] [address] When:Within 1 Month(s) [facility] 12-10-2024 NotePatient Education Urology Indwelling Urinary Catheter [...] provider. Document Revised: 12/25/2021 Document Reviewed: 09/20/2021 [employer] Patient Education ? 2021 weendy.[facility] 09-26-2024 Miscellaneous Notes* Telephone Encounter - Susie Andino RN - 09/26/2024 2:18 PM EST medication: midodrine (PROAMATINE) 5 mg tablet Last filled: 12/11/23 Last seen: 08/23/24 Next visit: Not scheduled Reviewed by RN. Pended for signature. According to office note from 08/23/24 Midodrine (Patient not taking: Reported on 08/23/2024) Please advise. documented in this encounterBerger Hospital12-09-2024 Telephone encounter Note* Telephone Encounter - Susie Andino RN - 09/26/2024 2:18 PM EST medication: midodrine (PROAMATINE) 5 mg tablet Last filled: 12/11/23 Last seen: 08/23/24 Next visit: Not scheduled Reviewed by RN. Pended for signature. According to office note from 08/23/24 Midodrine (Patient not taking: Reported on 08/23/2024) Please advise. [facility]12-08-2024 Miscellaneous Notes* Telephone Encounter - Susie Andino RN - 09/25/2024 4:07 PM EST medication: sumatriptan (IMITREX) 50 mg tablet Last filled: 05/25/24 Last seen: 08/23/24 Next visit: not scheduled Reviewed by RN. Pended for signature. documented in this [facility]12-08-2024 Miscellaneous Notes* Telephone Encounter - Susie Andino RN - 09/25/2024 4:07 PM EST medication: tramadol 50 mg tablet Last filled: 08/03/24 Last seen: 08/23/24 Next visit: not scheduled Reviewed by RN. Pended for signature. documented in this [facility]12-08-2024 Telephone encounter Note* Telephone Encounter - Susie Andino RN - 09/25/2024 4:07 PM EST medication: sumatriptan (IMITREX) 50 mg tablet Last filled: 05/25/24 Last seen: 08/23/24 Next visit: not scheduled Reviewed by RN. Pended for signature. [facility]12-08-2024 Telephone encounter Note* Telephone Encounter - Susie Andino RN - 09/25/2024 4:07 PM EST medication: tramadol 50 mg tablet Last filled: 08/03/24 Last seen: 08/23/24 Next visit: not scheduled Reviewed by RN. Pended for signature. [facility]11-11-2024 Miscellaneous Notes* Telephone Encounter - Susie Andino RN - 08/29/2024 3:42 PM EST medication: Carbidopa-levodopa (SINEMET CR) 25-100 mg per CR tablet Last filled: 08/07/23 Last seen: 08/23/24 Next visit: 09/06/24 Reviewed by RN. Pended for signature. documented in this encounterBerger Hospital11-11-2024 Telephone encounter Note* Telephone Encounter - Susie Andino RN - 08/29/2024 3:42 PM EST medication: Carbidopa-levodopa (SINEMET CR) 25-100 mg per CR tablet Last filled: 08/07/23 Last seen: 08/23/24 Next visit: 09/06/24 Reviewed by RN. Pended for signature. [facility]11-05-2024 History of Present illness Narrative* Wilber Tipton MD - 08/23/2024 11:30 AM EST Images from the original note were not included. [address] [address] Patient: Alisia Correa Sr. Date of : [...] 14 2 PTSD: No data to display [place]: No data to display TONIA-10: No data to display Past Medical, Family, Surgical, and Social History Update: The following portions of the patient's history were reviewed and updated as appropriate: allergies, current medications, past family history, past medical history, past social history, past surgicalhistory and problem list. Past Medical History: Diagnosis Date Diabetes mellitus ([facility] [place] [place]) Diabetes mellitus type 2, controlled ([facility] [place] [place]) HL (hearing loss) Hypertension Kidney stones Migraine Parkinson's disease ([facility] [place] [place]) Spinal stenosis No family history on file. [...] DOSE. TAKE ALONG WITH SINEMET CR. 180 [id number] diclofenac (VOLTAREN) 75 mg EC tablet Take [...] Plan of Care: none documented in this encounterBerger Hospital10-22-2024 Hospital Discharge instructions Follow Up Care 08/09/2024 15:03:40 With:LYN MACE PA-C, URL Address: [address] [place] [address] When: Unknown [facility] 10-13-2024 Miscellaneous Notes* Telephone Encounter - Susie [...] for approval and signature documented in [facility]University [facility] [employer]acks [id number] Telephone encounter Note* Telephone Encounter - Susie Andino RN - 07/31/2024 1:31 PM EDT Refill request : tramadol 50mg Last Filled : 04/13/24 Last Office Visit :11/16/23 Next Office Visit : 08/23/24 Reviewed by RN. Pend for signature. [facility] [employer] [id number] Telephone encounter Note* Telephone Encounter - REGAN Morales - 07/31/2024 1:31 PM EDT Pt is schedule for follow up with Dr Bowden in August. Sending to him for approval and signature [facility]09-26-2024 Miscellaneous Notes* Telephone Encounter - Rachel Mixon CMA - 07/14/2024 1:37 PM EDT Refill request: Med: fludrocortisone (FLORINEF) 0.1 mg tablet Si tabs daily as directed Last seen:11/16/23 With Kathy Cervantes Next visit:08/23/[address] Bowden Last filled: 02/23/23 - 90 day supply with 3 refills to [facility] Pharmacy: [facility] documented in this encounterBerger Hospital09-26-2024 Telephone encounter Note* Telephone Encounter - Rachel Mixon CMA - 07/14/2024 1:37 PM EDT Refill request: Med: fludrocortisone (FLORINEF) 0.1 mg tablet Si tabs daily as directed Last seen:11/16/23 With Kathy Cervantes Next visit:08/23/[address] Bowden Last filled: 02/23/23 - 90 day supply with 3 refills to [facility] Pharmacy: [facility]08-06-2024 Miscellaneous Notes* Telephone Encounter - Julianna Barnes - 05/24/2024 4:47 PM EDT Refill request : SUMAtriptan (IMITREX) 50 mg tablet Last Filled : 02/23/2024 Last OV : 11/16/2023 Next OV : 08/23/2024 Reviewed by FILLING MACHINE TENDER. Pend for signature. documented in this encounterBerger Hospital08-06-2024 Telephone encounter Note* Telephone Encounter - Julianna Barnes - 05/24/2024 4:47 PM EDT Refill request : SUMAtriptan (IMITREX) 50 mg tablet Last Filled : 02/23/2024 Last OV : 11/16/2023 Next OV : 08/23/2024 Reviewed by FILLING MACHINE TENDER. Pend for signature. [facility]06-24-2024 Miscellaneous Notes* Telephone Encounter - Julianna Barnes - 04/11/2024 11:33 AM EDT Refill request : tramadol (Ultram) 50 mg tablet Last Filled : 11/16/2023 Last OV : 11/16/2023 Next OV : None mentioned in last OV note. The OARRS database was reviewed today and found to be appropriate. No indication of medication diversion, or non compliance. Reviewed by FILLING MACHINE TENDER. Pend for signature. * Telephone Encounter - Rosa Neil - 04/11/2024 11:33 AM EDT Patient is scheduled for the following appointment: With Neurology (Samira Bowden MD) 08/23/2024 at 11:30 AM documented in this encounterBerger Hospital06-24-2024 Telephone encounter Note* Telephone Encounter - Julianna Barnes - 04/11/2024 11:33 AM EDT Refill request : tramadol (Ultram) 50 mg tablet Last Filled : 11/16/2023 Last OV : 11/16/2023 Next OV : None mentioned in last OV note. The OARRS database was reviewed today and found to be appropriate. No indication of medication diversion, or non compliance. Reviewed by FILLING MACHINE TENDER. Pend for signature. [facility] [employer] [id number] Telephone encounter Note* Telephone Encounter - Rosa Neil - 04/11/2024 11:33 AM EDT Patient is scheduled for the following appointment: With Neurology (Samira Bowden MD) 08/23/2024 at 11:[address] [facility] [employer] [id number] Miscellaneous Notes* Telephone Encounter - Rachel Mixon CMA - 03/28/2024 3:59 PM EDT [facility] Placed in provider's folder for signature. Dental Hygienist will return fax upon completion. documented in this encounterBerger Hospital06-10-2024 Telephone encounter Note* Telephone Encounter - Rachel Mixon CMA - 03/28/2024 3:59 PM EDT [facility]. Placed in provider's folder for signature. Dental Hygienist will return fax upon completion. [facility]05-30-2024 Evaluation + Plan note* Assessment & [...] the healing.Also recommended continue best medical therapy [facility]05-30-2024 Miscellaneous Notes* Assessment & Plan Note [...] continue best medical therapy documented in this encounterBerger Hospital05-30-2024 History of Present illness Narrative* Heidy [...] DOSE. TAKE ALONG WITH SINEMET CR. 180 [id number] diclofenac (VOLTAREN) 75 mg EC tablet Take [...] Past Medical History: Diagnosis Date Diabetes mellitus ([facility] [place] [place]) Diabetes mellitus type 2, controlled ([facility] [place] [place]) HL (hearing loss) Hypertension Kidney stones Migraine Parkinson's disease ([facility] [place] [place]) Spinal stenosis Past Surgical History: Past Surgical [...] Resource Strain: Low Risk (11/25/2022) Received from [facility] Overall Financial Resource Strain (CARDIA) Difficulty of Paying Living Expenses: Not very hard Food Insecurity: No Food Insecurity (01/28/2024) Hunger Screening Food Insecurity - Worry: Never True Food Insecurity - Inability: Never True Transportation Needs: No Transportation Needs (11/25/2022) Received from [facility] PRAPARE - Transportation Lack of Transportation (Medical): No Lack of Transportation (Non-Medical): No Physical Activity: Not on file Stress: Not on file Social Connections: Not on file Interpersonal Safety: Not on file Housing Instability: Low Risk (11/25/2022) Received from [facility], [facility] Housing Stability Vital Sign Unable to [...] 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) Heidy Marin MD, TESSIE, RPVI, FSVS, FACS [...] you for your understanding. documented in this encounterBerger Hospital05-28-2024 Hospital Discharge instructions Patient Education 03/15/2024 [...] include: ?8 oz (237 mL) of milk, cxaswid-xmvcvznxeyxs-lxvwk milk, and calcium- fortifiedfruit juice. Calcium-fortified means [...] ?Spinach (cooked), rhubarb, beets, sweet potatoes, and [place]oth[place] chard. ?Peanuts. ?Potato chips, yi fries, and baked potatoes with skin on. ?Nuts and nut products. ?Chocolate. If you regularly take a diuretic medicine, make sure to eat at least 1 or 2 servings of fruits or vegetables that are high in potassium each day. These include: ?Avocado. ?Banana. ?Baldwin, prune, carrot, or tomato juice. ?Baked potato. [...] magnesium, fish oil, or vitamin B6. Take hxxm-prm-qgbzdsz and prescription medicines only as told by [...] Casseroles. Pizza. Lasagna. Frozen meals. Potato chips. Pakistani fries. The items listed above may not [...] provider. Document Revised: 01/15/2023 Document Reviewed: 01/15/2023 [employer] Patient Education 2022 weendy. 03/15/2024 13:28:17 Antibiotic Medicine, Adult Antibiotic Medicine, [...] medicine. Follow these instructions at home: Take mabd-iwb-kmnahho and prescription medicines as told by your [...] provider. Document Revised: 11/19/2020 Document Reviewed: 07/24/2020 [employer] Patient Education 2022 weendy. 03/15/2024 13:27:57 Kidney Stones, Qdme-qg-Ldpn Kidney Stones Kidney stones are rock-like masses [...] Follow these instructions at home: Medicines Take lqev-qap-lbqervv and prescription medicines only as told by [...] provider. Document Revised: 06/09/2022 Document Reviewed: 06/09/2022 [employer] Patient Education 2022 [employer] Inc. 03/15/2024 13:27:55 Benign Prostatic Hyperplasia Benign Prostatic [...] urethra. Follow these instructions at home: Take ajhw-qgn-gfyofaa and prescription medicines only as told by [...] provider. Document Revised: 04/23/2022 Document Reviewed: 04/23/2022 [employer] Patient Education 2022 weendy. [facility] 05-09-2024 Miscellaneous Notes* Telephone Encounter - Rachel Mixon CMA - 02/25/2024 8:54 AM EDT [facility] Will have provider review andsign. Will return fax. documented in [facility] encounterBer[facility] Telephone encounter Note* Telephone Encounter - Rachel Mixon CMA - 02/25/2024 8:54 AM EDT Received RELASTER Progress note from [facility] dated 02/25/24. Will have provider review andsign. Will return fax. [facility]05-06-20[facility] Miscellaneous Notes* Telephone Encounter - Julianna Barnes - 02/22/2024 4:55 PM EDT Refill request : SUMAtriptan (IMITREX) 50 mg tablet Last filled : 02/15/2024 Printed not signed by ordering provider Last OV : 11/16/2023 Next OV : None mentioned in last OV note. Reviewed by FILLING MACHINE TENDER. Pend for signature. documented in this encounterBerger Hospital05-06-2024 Telephone encounter Note* Telephone Encounter - Julianna Barnes - 02/22/2024 4:55 PM EDT Refill request : SUMAtriptan (IMITREX) 50 mg tablet Last filled : 02/15/2024 Printed not signed by ordering provider Last OV : 11/16/2023 Next OV : None mentioned in last OV note. Reviewed by FILLING MACHINE TENDER. Pend for signature. [facility]05-02-2024 Miscellaneous Notes* Telephone Encounter - Rachel Mixon CMA - 02/18/2024 4:03 PM EDT Received RELASTER Progress note from [facility] dated 02/08/24. Will have provider review and sign. Will return fax. documented in this encounterBerger Hospital05-02-2024 Telephone encounter Note* Telephone Encounter - Rachel Mixon CMA - 02/18/2024 4:03 PM EDT Received RELASTER Progress note from [facility] dated 02/08/24. Will have provider review and sign. Will return fax. [facility]04-29-2024 Miscellaneous Notes* Telephone Encounter - Rachel Mixon CMA - 02/15/2024 4:22 PM EDT Received PT Progress Note from [facility] rehab services. Note placed in Kathy's folder for review and signature. Will return fax upon completion. documented in this encounterBerger Hospital04-29-2024 Telephone encounter Note* Telephone Encounter - Rachel Mixon CMA - 02/15/2024 4:22 PM EDT Received PT Progress Note from [facility] rehab services. Note placed in Kathy's folder for review and signature. Will return fax upon completion. [facility]04-25-2024 History and physical note Author Bernice Shrestha [facility] February 11, 2024 8:20am Note Date/Time February 11, 2024 8:2 0am [facility] [address] [place] [address] Gastroenterology H&P Signed Patient: Alisia Correa SR MR#: [id number] : 1960 Acct:[id number] Age/Sex: 63 / M Adm Date: 4 [...] <Electronically signed by Bernice Shrestha DO> 02/11/24819 [facility] Work Phone: [phone] 669-619304-25-2024 [facility] noteMarion Hospital04-23-2024 Miscellaneous Notes* Telephone Encounter - Julianna Barnes - 02/09/2024 6:56 PM EDT Refill request : SUMAtriptan (IMITREX) 50 mg tablet Last filled : 09/03/2023 Last OV : 11/16/2023 Next OV : No follow up mentioned in last OV note. Reviewed by Stenciling Machine Tender. Pend for signature. documented in this encounterBerger Hospital04-23-2024 Telephone encounter Note* Telephone Encounter - Julianna Barnes - 02/09/2024 6:56 PM EDT Refill request : SUMAtriptan (IMITREX) 50 mg tablet Last filled : 09/03/2023 Last OV : 11/16/2023 Next OV : No follow up mentioned in last OV note. Reviewed by Stenciling Machine Tender. Pend for signature. [facility]04-11-2024 Miscellaneous Notes* Telephone Encounter - Rachel Mixon CMA - 01/28/2024 10:26 AM EDT Received Information for scheduling a Modified Barium Swallow form from the [facility] scheduled for 02/16/24 at 11:00am. Scanned and attached to this encounter and placed in FILLING MACHINE TENDER's folder for completion. Dental Hygienist will fax upon completion. * Telephone Encounter - Julianna Barnes - 01/28/2024 10:26 AM EDT Noted. * Telephone Encounter - Julianna Barnes - 01/28/2024 10:26 AM EDT Documentation completed and placed with [facility] for faxing. documented in this encounterBerger Hospital04-11-2024 Telephone encounter Note* Telephone Encounter - Rachel Mixon CMA - 01/28/2024 10:26 AM EDT Received Information for scheduling a Modified Barium Swallow form from the [facility] scheduled for 02/16/24 at 11:00am. Scanned and attached to this encounter and placed in FILLING MACHINE TENDER's folder for completion. Dental Hygienist will fax upon completion. [facility]04-11-2024 Telephone encounter Note* Telephone Encounter - Julianna Barnes - 01/28/2024 10:26 AM EDT Noted. [facility]04-11-2024 Telephone encounter Note* Telephone Encounter - Julianna Barnes - 01/28/2024 10:26 AM EDT Documentation completed and placed with [facility] for faxing. [facility]04-11-2024 Evaluation + Plan note* Assessment & Plan Note - Heidy Marin MD - 01/28/2024 9:41 AM EDTAssociated Problem(s): Critical limb ischemia of both lower extremities with gangrene (CMS-HCC) Bilateral toe wounds nonhealing, no PVR or testing [facility]04-11-2024 Miscellaneous Notes* Assessment & Plan Note [...] smoking AAA duplex US documented in this encounterBerger Hospital04-11-2024 Evaluation + Plan note* Assessment & Plan Note - Heidy Marin MD - 01/28/2024 9:40 AM EDT Associated Problem(s): Encounter for screening for abdominal aortic aneurysm (AAA) in patient 50 years of age or older with history of smoking AAA duplex US [facility]04-11-2024 History of Present illness Narrative* Heidy [...] DOSE. TAKE ALONG WITH SINEMET CR. 180 [id number] diclofenac (VOLTAREN) 75 mg EC tablet Take [...] Past Medical History: Diagnosis Date Diabetes mellitus ([facility] [place]) Diabetes mellitus type 2, controlled ([facility] [place]) HL (hearing loss) Hypertension Kidney stones Migraine Parkinson's disease ([facility] [place]) Spinal stenosis Past Surgical History: Past Surgical [...] Resource Strain: Low Risk (11/25/2022) Received from [facility] Overall Financial Resource Strain (CARDIA) Difficulty of Paying Living Expenses: Not very hard Food Insecurity: No Food Insecurity (01/28/2024) Hunger Screening Food Insecurity - Worry: Never True Food Insecurity - Inability: Never True Transportation Needs: No Transportation Needs (11/25/2022) Received from [facility] PRAPARE - Transportation Lack of Transportation (Medical): No Lack of Transportation (Non-Medical): No Physical Activity: Not on file Stress: Not on file Social Connections: Not on file Interpersonal Safety: Not on file Housing Instability: Low Risk (11/25/2022) Received from [facility] Housing Stability Vital Sign Unable to [...] Heidy Marin MD, TESSIE, RPVI, FSVS, FACS [facility] This note was created with the assistance of a speech recognition program. While intending to generate a timely document that accurately reflects the content of the visit, no guarantee can be provided that every grammatical or spelling mistake has been or will be identified or corrected. Thank you for your understanding. documented in this encounterBerger Hospital03-26-2024 Miscellaneous Notes* Telephone Encounter - Rachel Mixon CMA - 01/12/2024 9:35 AM EDT Received RELASTER Initial Eval from [facility] dated 01/06/24. Will have Kathy review and sign. Will return fax. documented in this encounterBerger Hospital03-26-2024 Telephone encounter Note* Telephone Encounter - Rachel Mixon CMA - 01/12/2024 9:35 AM EDT Received RELASTER Initial Eval from [facility] dated 01/06/24. Will have Kathy review and sign. Will return fax. [facility]03-26-2024 Miscellaneous Notes* Telephone Encounter - Rachel Mixon CMA - 01/12/2024 9:[address] request to evaluate and treat from [facility] dated 01/08/24. Will have Mollyreview and sign. Will return fax. documented in this encounterBerger Hospital03-26-2024 Telephone encounter Note* Telephone Encounter - Rachel Mixon CMA - 01/12/2024 9:[address] request to evaluate and treat from [facility] dated 01/08/24. Will have Mollyreview and sign. Will return fax. [facility]03-22-2024 Miscellaneous Notes* Telephone Encounter - Rachel Mixon CMA - 01/08/2024 8:17 AM EDT Received PT Initial Eval from [facility] dated 01/06/24 . Will have Kathy review and sign. Will return fax. documented in this encounterBerger Hospital03-22-2024 Telephone encounter Note* Telephone Encounter - Rachel Mixon CMA - 01/08/2024 8:17 AM EDT Received PT Initial Eval from [facility] dated 01/06/24 . Will have Kathy review and sign. Will return fax. [facility]02-23-2024 Miscellaneous Notes* Telephone Encounter - Fidelia Lagunas - 12/11/2023 8:55 AM EST Refill Request Medication:midodrine (PROAMATINE) 5 mg tablet Strength: Current dose & Frequency: 30 day or 90 day supply: Pharmacy:[address] Request was made by:Patients daughter. Caller [...] mentioned in last ov note. Reviewed by FILLING MACHINE TENDER Pend for signature. documented in this encounterKeenan Private [email or web address] Telephone encounter Note* Telephone Encounter - Fidelia Lagunas - 12/11/2023 8:55 AM EST Refill Request Medication:midodrine (PROAMATINE) 5 mg tablet Strength: Current dose & Frequency: 30 day or 90 day supply: Pharmacy:[address] Request was made by:Patients daughter. Caller states patient Is now out of this medication and the pharmacy needs a new script that reflects the changes that was made at last appointment. Patient now takes a total of 9 pills with the change and that's why patient run our early. Please advise [facility]02-23-2024 Telephone encounter Note* Telephone Encounter - Julianna Barnes - 12/11/2023 8:55 AM EST Refill request : midodrine (PROAMATINE) 5 mg tablet Last filled : 09/02/2023 Last OV : 11/16/2023 Next OV : No follow up mentioned in last ov note. Reviewed by FILLING MACHINE TENDER Pend for signature. [facility]01-30-2024 Evaluation note* Encounter Date Diagnosis Assessment Notes Treatment Notes Treatment Clinical Notes Oct, Arthritis (ICD-10 - M19.90) Oct, Chronic pain syndrome (ICD-10 - G89.4) [place] Other [id number] Miscellaneous Notes* Telephone Encounter - Rachel Mixon CMA - 11/17/2023 1:56 PM EST Fidelia received call from patient's son stating that patient needs a refill on C/L IR and they didn't realize that it needed filled until they got home from their appointment yesterday 11/16/23. In [facility], Rx for C/L IR 25-100 mg was written yesterday 11/16/23. 30 day supply with 11 refills. [facility] to verify that they had received Rx. pilot plant technician stated they did receive Rx. Called and spoke with patient's Dipti and informed her of Rx. Dipti voiced understanding. Noaction needed. documented in this encounterUniversity [facility] Vis[employer]acks [id number] Telephone encounter Note* Telephone Encounter - Rachel Mixon CMA - 11/17/2023 1:56 PM EST Fidelia received call from patient's son stating that patient needs a refill on C/L IR and they didn't realize that it needed filled until they got home from their appointment yesterday 11/16/23. In [facility], Rx for C/L IR 25-100 mg was written yesterday 11/16/23. 30 day supply with 11 refills. Called [facility] to verify that they had received Rx. pilot plant technician stated they did receive Rx. Called and spoke with patient's Dipti and informed her of Rx. Dipti voiced understanding. Noaction needed. [facility] [employer] [id number] History of Present illness Narrative* Reena Cervantes APRN-NATHEN - 11/16/2023 1:00 PM EST Images from the original note were not included. [address] [id number] Patient: Alisia Correa Sr. Date of : [...] further dose adjustments He was admitted to [facility]: 11/20/22 to 12/06/22 Mr. Correa, You [...] Past Medical History: Diagnosis Date Diabetes mellitus ([facility] [place]) Diabetes mellitus type 2, controlled ([facility] [place]) HL (hearing loss) Hypertension Kidney stones Migraine [...] DOSE. TAKE ALONG WITH SINEMET CR. 180 gqflox98 traMADoL (ULTRAM) 50 mg tablet Take 1 [...] MORALES APRN-CNP 12/07/23 0817 documented in this encounterBerger Hospital01-29-2024 Instructions* Patient Instructions* REGAN Morales - [...] some issues with numbness/tingling. documented in this [facility]01-23-2024 Evaluation note* Encounter Date Diagnosis Assessment [...] at this time. This will be monitored [employer] Other 01-22-2024 Evaluation note* Encounter Date Diagnosis Assessment Notes Treatment Notes Treatment Clinical Notes Oct, Arthritis (ICD-10 - M19.90) [employer] Other 01-22-2024 Miscellaneous Notes* Telephone Encounter - Julianna Barnes - 11/09/2023 10:42 AM EST Refill request: Sinemet IR 25-100 mg tablet and Sinemet ER 25- 100 mg tablet Dental Hygienist phoned patient and patient has refills remaining on both medications at pharmacy. Patient voiced understanding. documented in this encounterBerger Hospital01-22-2024 Telephone encounter Note* Telephone Encounter - Julianna Cameron - 11/09/2023 10:42 AM EST Refill request: Sinemet IR 25-100 mg tablet and Sinemet ER 25- 100 mg tablet Dental Hygienist phoned patient and patient has refills remaining on both medications at pharmacy. Patient voiced understanding. [facility] [place] [employer] [id number] Evaluation note* Encounter Date Diagnosis Assessment Notes Treatment Notes Treatment Clinical Notes Sep, Arthritis (ICD-10 - M19.90) [employer] Other 11-29-2023 Evaluation note* Encounter Date Diagnosis Assessment Notes Treatment Notes Treatment Clinical Notes Aug, Anxiety (ICD-10 - F41.9) Aug, Neuropathy (ICD-10 - G62.9) [employer] Other 11-28-2023 Evaluation note* Encounter Date Diagnosis Assessment Notes Treatment Notes Treatment Clinical Notes Aug, Diabetic nephropathy (ICD-10 - E11.21) [employer] Other 11-15-2023 Evaluation note* Encounter Date Diagnosis [...] medrol should help with this as well. [facility] Other 11-07-2023 Evaluation note* Encounter Date Diagnosis Assessment Notes Treatment Notes Treatment Clinical Notes Aug, UTI (urinary tract infection) (ICD-10 - N39.0) Aug, Diarrhea (ICD-10 - R19.7) [facility] Other 09-15-2023 Evaluation note* Encounter Date Diagnosis Assessment Notes Treatment Notes Treatment Clinical Notes Jun, Arthritis (ICD-10 - M19.90) [facility] Other 08-08-2023 Evaluation note* Encounter Date Diagnosis Assessment Notes Treatment Notes Treatment Clinical Notes May, Parkinson disease (ICD-10 - G20) May, Constipation (ICD-10 - K59.00) [employer] Other 08-01-2023 Evaluation note* Encounter Date Diagnosis [...] narcotic induced constipation and he verbalized understanding. [facility] Other 07-10-2023 Evaluation note* Encounter Date Diagnosis Assessment Notes Treatment Notes Treatment Clinical Notes Apr, Hypotestosteronism (ICD-10 - E34.9) [facility] Other 06-02-2023 Hospital Discharge instructions Patient Education [...] and water are not available, use hand loom changeover operator. 3.Draw up sterile water into a syringe [...] and water are not available, use hand loom changeover operator. 2.Disconnect the bag from the catheter and [...] of the following methods: According to the gasateria attendant's instructions. As told by your health care provider. 7.Let the bag dry completely. Put it in a clean plastic bag before storing it. General tips Always wash your hands before and after caring for your catheter and collection bag. Use a mild, fragrance-free soap. If soap and water are not available, use hand loom changeover operator. Clean the outside of the catheter with [...] provider. Document Revised: 12/13/2020 Document Reviewed: 11/09/2019 [employer] Patient Education 2022 weendy. Follow Up Care 02/20/2023 10:24:17 With:FRED YBARRA, Fidel R, URL Address: [facility] [address] , [place] [address]- When: Unknown [facility] 05-05-2023 Hospital Discharge instructions Patient Education [...] Follow these instructions at home: Medicines Take vbri-uzy-mdnrpvp and prescription medicines only as told by [...] provider. Document Revised: 06/26/2021 Document Reviewed: 06/26/2021 [employer] Patient Education 2022 weendy. Follow Up Care 01/16/2023 11:27:11 With:FRED YBARRA, Fidel Hinkle, URL Address: [address] [place] [address]- When: Unknown [facility] 04-14-2023 Hospital Discharge instructions Patient Education [...] urethra. Follow these instructions at home: Take asrx-ehs-jhxuodn and prescription medicines only as told by [...] 10/05/2006 Document Revised: 08/30/2019 Document Reviewed: 11/09/2017 [employer] Patient Education 2020 weendy. 01/30/2023 07:57:19 Indwelling Urinary Catheter Care, Adult, Mbpl-jq-Fxfi Indwelling Urinary Catheter Care, Adult An indwelling [...] not have soap and water, use hand loom changeover operator. Always make sure there are no twists [...] 01/30/2014 Document Revised: 01/27/2020 Document Reviewed: 05/21/2018 [employer] Patient Education 2020 weendy. 01/30/2023 07:56:45 Benign Prostatic Hyperplasia Benign Prostatic [...] urethra. Follow these instructions at home: Take nyrs-dft-yqzwxml and prescription medicines only as told by [...] 10/05/2006 Document Revised: 08/30/2019 Document Reviewed: 11/09/2017 [employer] Patient Education 2020 weendy. Follow Up Care 01/27/2023 14:28:53 With:FRED YBARRA, Fidel Hinkle, URL Address: [facility] [address] , [place] [address]- [phone] When:Within 3 Week(s) Comments:3 weeks for SP tube change [facility] 04-06-2023 NoteOP Note OPERATION DATE: 01/22/2023 PREOPERATIVE [...] the flexible scope and then passed a 26-Pakistani resectoscope sheath into the bladder, and then I used the Huoshi evacuator and was able to extract all [...] of the incision. I then grasped a 24-Pakistani two way Carrington catheter in the jaws [...] bag. He was then transferred to a rpleasant unity bed and wheeled to recovery room after sterile dressing was placed over the incision. He will be discharged to home later today. He will continue his daily Augmentin. Follow up will be in four weeks to change his SP tube in the office.[facility] [id number] NoteEXAMINATION: XR CHEST 2 V, 01/20/2023 11:23 [...] authenticated by: SHARRON BENITEZ Date: 2023-01-20 12:49[facility] HospitalHxzfiabl05-79-9947 Evaluation note* Encounter Date Diagnosis Assessment Notes Treatment Notes Treatment Clinical Notes Dec, Neuropathy (ICD-10 - G62.9) [employer] Other [id number] NoteHNO ID: [id number] Author: Say Reyes APRN.SUPERVISOR SEWING ROOM Service: ? Author Type: Nurse Practitioner Type: Progress Notes Filed: 12/24/2022 5:59 PM Note Text: The patient did not show up for this appointment.[id number] History of Present illness Narrative* Say Reyes APRN.NATHEN - 12/24/2022 11:30 AM EST The patient did not show up for this appointment. documented in this encounterCleveland [facility]02-18-2023 NoteC[facility]-2023 NoteC[facility]02-18-2023 Miscellaneous Notes * Telephone Encounter - Zelda Saenz RN - 12/06/2022 1:15 PM EST [facility] pharmacist, Macrina, requests to clarify pt.'s proamatine [...] from CC later today. documented in this encounterCleveland Clinic South [facility]inte [facility]02-17-2023 NoteC[facility]02-16-2023 NoteC[facility]02-16-2023 NoteC[facility]02-15-2023 NoteC[facility]02-15-2023 Note [facility]02-15-2023 NoteC[facility]02-14-2023 NoteC[facility]02-13-2023 NoteC[facility] 12-01-2022 NoteC[facility]02-13-2023 NoteC[facility]02-12-2023 NoteC[facility]02-11-2023 NoteC[facility]02-11-2023 NoteC[facility]02-10-2023 Note [facility]02-09-2023 NoteC[facility]02-08-2023 NoteHNO ID: [id number] Author: Antonia Villa RN Service: ? Author Type: Registered Nurse Type: Nursing Progress Note Filed: 11/26/2022 10:03 AM Note Text: Transfer Note: Patient transferred in stable condition. Actions taken: Report given/called to G61 RN.[facility]02-08-2023 NoteC[facility]02-08-2023 NoteC[facility]02-07-2023 NoteC[facility]02-06-2023 NoteC[facility]02-05-2023 Note [facility]02-04-2023 NoteC[facility]02-03-2023 NoteC[facility]02-03-2023 NoteC[facility] 11-20-2022 NoteC[facility]02-02-2023 NoteC[facility]01-30-2023 Evaluation note* Encounter Date Diagnosis Assessment Notes Treatment Notes Treatment Clinical Notes Oct, Orthostatic hypotension (ICD-10 - I95.1) [facility] Other 01-24-2023 Evaluation note* Encounter Date Diagnosis [...] He is symptomatic with dizziness and fatigue. [facility] [...] sympoms. We did attempt to call his billet sawyer however nursing staff will need to discuss with Dr. Teran and they have advised that they will call both us and the patient back with an appt and recommendations due to his significant hypotention. [facility] Other 11-15-2022 Evaluation note* Encounter Date Diagnosis [...] Aug, Needs flu shot (ICD-10 - Z23) [facility] Other 11-11-2022 Evaluation note* Encounter Date Diagnosis Assessment Notes Treatment Notes Treatment Clinical Notes Aug, Benign prostatic hyperplasia with lower urinary tract symptoms, symptom details unspecified (ICD-10 - N40.1) [facility] Other 11-10-2022 Evaluation note* Encounter Date Diagnosis Assessment Notes Treatment Notes Treatment Clinical Notes Aug, Benign prostatic hyperplasia with lower urinary tract symptoms, symptom details unspecified (ICD-10 - N40.1) [facility] Other 08-30-2022 Evaluation note* Encounter Date Diagnosis Assessment Notes Treatment Notes Treatment Clinical Notes May, Neuropathy (ICD-10 - G62.9) [facility] Other 08-03-2022 Evaluation note* Encounter Date Diagnosis [...] - N40.1) May, Parkinsonism (ICD-10 - G20) [facility] Other 06-07-2022 Evaluation note* Encounter Date Diagnosis Assessment Notes Treatment Notes Treatment Clinical Notes Mar, Hypotension (ICD-10 - I95.9) [facility] Other 05-03-2022 History of Present illness Narrative* Nevaeh Oviedo RN - 02/18/2022 12:15 PM EDT Discharged with LACP per cart to skilled nursing with AVS and scripts. * Nevaeh Oviedo RN - 02/18/2022 11:00 AM EDT Report called to [facility]. All Questions answered. Phone number given [...] HOLLY Morejon - 02/17/2022 10:02 AM EDT [facility] STRZ ORTHOPEDICS 7K Occupational Therapy Daily Note Time: Time In: 923 Time Out: 1001 Timed Code Treatment Minutes: 38 Minutes Minutes: 38 Date: 02/17/2022 Patient Name: Alisia Correa, Gender: male Room: [facility]/012-A : 1960 (61 y.o.) Referring Practitioner: Maki Rede PA-C Diagnosis: Lumbar stenosis with neurogenic claudication [...] catheter positioning RN notified and addressed. PAIN: 6/10: low back Vitals: Nurse checked vitals prior [...] op hypotension -cont midodrine Evelina Parra MD, * SHRAVAN Pressley - 02/16/2022 12:29 PM [...] Wall, PT - 02/16/2022 10:39 AM EDT [facility] INPATIENT PHYSICAL THERAPY DAILY NOTE [facility] ORTHOPEDICS 7K - 7K-12/012-A Time In: [...] Ambulation Assistance: Independent Transfer Assistance: Independent Active Mechanical Fitter: Yes Additional Comments: pt states d/t PD, he requires assistance with transfers and ambulation; pt hadHH PT PUBLIC OPINION SURVEY TAKER Restrictions/Precautions: Restrictions/Precautions: General Precautions,Fall Risk Required Braces [...] with LAQ noted Functional Outcome Measures: Completed AM-[facility] Inpatient Mobility without Stair Climbing Raw Score : 12 AM-[facility] Inpatient without Stair Climbing T-Scale Score [...] to navigate home distances. Additional Goals?: No Gold Miner Goals Time Frame for skilled nursing goals : N/A due to short ELOS Following session, patient left in safe position with all fall risk precautions in place. * Lulu Chan, OT - 02/15/2022 2:57 PM EDT [facility] ORTHOPEDICS 7K Occupational Therapy Daily Note Time: Time In: 1452 Time Out: 1520 Timed Code Treatment Minutes: 28 Minutes Minutes: 28 Date: 02/15/2022 Patient Name: Alisia Correa, Gender: male Room: [facility]/012- : 1960 (61 y.o.) Referring Practitioner: Maki [...] fall risk precautions in place. * Evelina Prara MD - 02/15/2022 12:29 PM EDT INTERNAL MEDICINE Progress Note 02/15/2022 12:29 PM Subjective: Admit Date: 02/07/2022 PCP: ELLEN R. KUNS, DO Interval History: No new c/o today [...] Vaughan, PT - 02/14/2022 3:02 PM EDT [facility] INPATIENT PHYSICAL THERAPY DAILY NOTE [facility] ORTHOPEDICS 7K - 7K-12/012-A Time In: [...] Ambulation Assistance: Independent Transfer Assistance: Independent Active Mechanical Fitter: Yes Additional Comments: pt states d/t PD, he requires assistance with transfers and ambulation; pt hadHH PT PUBLIC OPINION SURVEY TAKER Restrictions/Precautions: Restrictions/Precautions: General Precautions,Fall Risk Required Braces [...] to navigate home distances. Additional Goals?: No [facility] Goals Time Frame for skilled nursing goals : N/A due to short ELOS [...] HOLLY Mchugh - 02/14/2022 10:[address] [facility] OCCUPATIONAL THERAPY MISSED TREATMENT NOTE [facility] ORTHOPEDICS 7K 7K-12/012-A Date: 02/14/2022 Patient Name: Alisia Correa CSN: [id number] : 1960 (61 y.o.) Gender: male Referring [...] HOLLY Morejon - 02/13/2022 12:33 PM EDT [facility] ORTHOPEDICS Occupational Therapy Daily Note Time: Time In: 1109 Time Out: 1135 Timed Code Treatment Minutes: 26 Minutes Minutes: 26 Date: 02/13/2022 Patient Name: Alisia Correa, Gender: male Room: [facility] : 1960 (61 y.o.) Referring Practitioner: Maki [...] restrictions: hx PD; monitor BP SUBJECTIVE: RN rafia OT session. Pt. In chair and agreeable to participate PAIN: 710: lower back Vitals: Vitals not assessed per [...] Vaughan PT - 02/13/2022 11:02 AM EDT [facility] INPATIENT PHYSICAL THERAPY DAILY NOTE [facility] ORTHOPEDICS 7K - 7K-12/012-A Time In: [...] Ambulation Assistance: Independent Transfer Assistance: Independent Active Mechanical Fitter: Yes Additional Comments: pt states d/t PD, he requires assistance with transfers and ambulation; pt hadHH PT PUBLIC OPINION SURVEY TAKER Restrictions/Precautions: Restrictions/Precautions: General Precautions,Fall Risk Required Braces [...] independence withfunctional mobility. Functional Outcome Measures: Completed -[facility] Inpatient Mobility without Stair Climbing Raw Score : 15 AM-[facility] Inpatient without Stair Climbing T-Scale Score [...] to navigate home distances. Additional Goals?: No [facility] Goals Time Frame for long term care pharmacist goals : N/A due to short ELOS [...] HOLLY Morejon - 02/12/2022 2:39 PM EDT [facility] ORTHOPEDICS 7K Occupational Therapy Daily Note Time: Time In: 1356 Time Out: 1439 Timed Code Treatment Minutes: 43 Minutes Minutes: 43 Date: 02/12/2022 Patient Name: Alisia Correa, Gender: male Room: [facility]012- : 1960 (61 y.o.) Referring Practitioner: Maki [...] Patient tolerance of treatment: fair. Discharge Recommendations: Subacute/alf facility and Inpatient Therapy Stay Equipment Recommendations: [...] Status: At risk for malnutrition (Comment) (02/10/22 0015) Context: Acute Illness Findings of the 6 clinical characteristics of malnutrition: Energy Intake: No significant decrease in energy intake Weight Loss: (4.8% wt loss in 18 days however now eating 76-100%) Body Fat Loss: No significant body fat loss Muscle Mass Loss: No significant muscle mass loss Fluid Accumulation: Mild Extremities Sales Consultant Residential Manager Strength: Not Performed Nutrition Assessment: Pt. nutritionally [...] Anthropometric Measures: Height: 5' 10 (177.8 cm) [place] Body Weight (IBW): 166 lbs (75 kg) [...] 1625-1806kcals (18-20kcals/kgm) Weight Used for Protein Requirements: [place] Protein (g/day): 105-150 grams (1.4-2 grams protein/kgm [...] Corrales PTA - 02/12/2022 11:52 AM EDT [facility] INPATIENT PHYSICAL THERAPY DAILY NOTE [facility] ORTHOPEDICS 7K - 7K-12/012-A Time In: [...] Ambulation Assistance: Independent Transfer Assistance: Independent Active Mechanical Fitter: Yes Additional Comments: pt states d/t PD, he requires assistance with transfers and ambulation; pt hadHH PT PUBLIC OPINION SURVEY TAKER Restrictions/Precautions: Restrictions/Precautions: General Precautions,Fall Risk Required Braces [...] to navigate home distances. Additional Goals?: No Gold Miner Goals Time Frame for long term care pharmacist goals : N/A due to short ELOS [...] 02/11/2022 6:16 PM EDT Pt admitted to [facility] via cart/stretcher. Complaints: L2-S1 degenerative disc disease. [...] room. Explained patients right to have family, claim representative or physician notified of their admission. Patient has Declined for physician to be notified. Patient has Declined for family/claim representative to be notified. The patient is interested in [facility] program?: No Policies and procedures for explained. All questions answered with no further questions at this time. Fall prevention and safety brochure discussed with patient. Bed alarm on. Call light in reach. * Peace Alonso RN - 02/11/2022 5:00 PM EDT Call placed to patients Dipti. Updated that the patient is transferring to [facility]. * Pamela Lees, PT - 02/11/2022 3:42 PM EDT [facility] INPATIENT PHYSICAL THERAPY DAILY NOTE STRZ [...] Ambulation Assistance: Independent Transfer Assistance: Independent Active Mechanical Fitter: Yes Additional Comments: pt states d/t PD, he requires assistance with transfers and ambulation; pt hadHH PT PUBLIC OPINION SURVEY TAKER Restrictions/Precautions: Restrictions/Precautions: General Precautions,Fall Risk Required Braces [...] to navigate home distances. Additional Goals?: No [facility] Goals Time Frame for long term care pharmacist goals : N/A due to short ELOS Following session, patient left in safe position with all fall risk precautions in place. * Danica Lopes, HOLLY - 02/11/2022 1:02 PM EDT [facility] STRZ ICU STEPDOWN TELEMETRY 4K Occupational Therapy Daily Note Time: Time In: 1045 Time Out: 1129 Timed Code Treatment Minutes: 44 Minutes Minutes: 44 Date: 02/11/2022 Patient Name: Alisia Correa, Gender: male Room: [address] [place] [address] : 1960 (61 y.o.) Referring Practitioner: Maki [...] IntraVENous Q8H acarbose 25 mg Oral TID atorvastatin 10 [...] Status: At risk for malnutrition (Comment) (02/10/22 8155) Context: Acute Illness Findings of the 6 clinical characteristics of malnutrition: Energy Intake: No significant decrease in energy intake Weight Loss: (4.8% wt loss in 18 days however now eating 76-100%) Body Fat Loss: No significant body fat loss Muscle Mass Loss: No significant muscle mass loss Fluid Accumulation: Mild Extremities Sales Consultant Residential Manager Strength: Not Performed Nutrition Assessment: Pt. nutritionally [...] Anthropometric Measures: Height: 5' 10 (177.8 cm) [place] Body Weight (IBW): 166 lbs (75 kg) [...] 1625-1806kcals (18-20kcals/kgm) Weight Used for Protein Requirements: [place] Protein (g/day): 105-150 grams (1.4-2 grams protein/kgm [...] determine Stefania Lagunas RD, GAMALIEL Contact: * Marielena Mustafa APRN - SUPERVISOR SEWING ROOM - 02/10/2022 3:44 PM EDT Physician Progress Note PATIENT: ALISIA CORREA CSN #: [id number] : 1960 ADMIT DATE: 02/07/2022 8:09 AM [...] Thank you! FARIBA KennedyN,RN, CRCR RN Clinical Rn Embedded P: [phone] Options provided: -- Hypovolemic Shock -- Hypovolemia [...] HOLLY Mchugh - 02/10/2022 2:42 PM EDT [facility] STRZ ICU STEPDOWN TELEMETRY 4K Occupational Therapy Daily Note Time: Time In: 1358 Time Out: 1421 Timed Code Treatment Minutes: 23 Minutes Minutes: 23 Date: 02/10/2022 Patient Name: Alisia Correa, Gender: male Room: [address] [place] [address] : 1960 (61 y.o.) Referring Practitioner: Maki [...] Alisia Correa Date of : 1960 Acct: [id number] Admit Date: 02/07/2022 Primary Cocoa Room Operator: none Per Dr Schrader's note: REASON [...] change was found Confirmed by SUSAN CARRION ([id number]) on 02/08/2022 Echo: Stress: Left Heart Cath: [...] Echocardiogram complete at bedside. * Adali Calix, PUBLIC OPINION SURVEY TAKER - 02/10/2022 9:53 AM EDT [facility] INPATIENT PHYSICAL THERAPY DAILY NOTE STRZ ICU STEPDOWN TELEMETRY -A Time In: 08 Time Out: 09 [...] Needs assistance Transfer Assistance: Needs assistance Active Mechanical Fitter: No Additional Comments: pt states d/t PD, he requires assistance with transfers and ambulation; pt hadHH PT PUBLIC OPINION SURVEY TAKER Restrictions/Precautions: Restrictions/Precautions: General Precautions,Fall Risk Required Braces [...] to navigate home distances. Additional Goals?: No Gold Miner Goals Time Frame for skilled nursing goals : N/A due to short ELOS [...] Progress Note PATIENT: ALISIA CORREA CSN #: [id number] : 1960 ADMIT DATE: 02/07/2022 8:09 AM DISCH DATE: RESPONDING PROVIDER #: DON SINGH PA-C QUERY TEXT: Pt admitted with L2-S1 degenerative disc disease with neuroforaminal stenosis and radiculopathy and L2-L4 central canal stenosis, and underwent surgery on 02/07. 02/07 IM note states, Acute resp failure postop. 02/07 @ 1439: 90% on RA...91% on 6 L; 02/07 @ 7: weaned to RA; 02/08 @ 0900: 94% [...] on RA...91% on 6 L; 02/07 @ 7: weaned to RA; 02/08 @ 0900: 94% on 2 L; PICHARDO, expiratory wheezes Treatment: O2 via NC, Dulera Thank you! Nevaeh Goldsmith RN, BSN, MATRIX BATH ATTENDANT, CCDS Clinical Rn Embedded Options provided: -- Acute pulmonary insufficiency following [...] Alisia Correa Date of : 1960 Acct: [id number] -A Primary Care Physician: ELLEN CRABTREE DO [...] 02/08/22 0922 (!) 70/46 02/08/22 0900 (!) 6844 62 16 94 % 02/08/22 0825 (!) 7846 97.5 F (36.4 C) Oral 55 16 [...] TROPONINT in the last 72 hours. Imaging: @[id number]@ EKG: Diet: ADULT DIET; Regular; 4 carb [...] chloride sodium chloride 150 mL/hr at 02/09/22 05 PRN Meds:.traMADol, albuterol sulfate HFA, sodium chloride [...] and hence had to be transferred to [facility] for dopamine drip Pt this morning on [...] started 1141 BP 85/47 after bolus. Updated SUPERVISOR SEWING ROOM. 1218 BP 70/38, at bedside. Ordered to [...] Griffin, OT - 02/08/2022 1:[address] [facility] INPATIENT OCCUPATIONAL THERAPY STR ORTHOPEDICS 7K EVALUATION Time: Time In: 1052 [...] needing to return to bed from recliner. FILLING MACHINE TENDER present to assist. Pain: 12/26 Vitals: Blood [...] Needs assistance Transfer Assistance: Needs assistance Active Mechanical Fitter: No Additional Comments: pt states d/t PD, he requires assistance with transfers and ambulation; pt hadHH PT PUBLIC OPINION SURVEY TAKER VISION:WFL HEARING: WFL COGNITION: Slow Processing and [...] Pandya PT - 02/08/2022 10:33 AM EDT [facility] INPATIENT PHYSICAL THERAPY EVALUATION [facility] ORTHOPEDICS 7K - 7K-26/026-A Time In: [...] Assistance: Needs assistance ( assists him) Active Mechanical Fitter: No Additional Comments: pt states d/t PD, he requires assistance with transfers and ambulation; pt hadHH PT PUBLIC OPINION SURVEY TAKER OBJECTIVE: Range of Motion: Bilateral Lower Extremity: [...] diaphoretic, and lightheaded Functional Outcome Measures: Completed AM-[facility] Inpatient Mobility Raw Score : 11 AM-[facility] Inpatient T-Scale Score : 33.86 ASSESSMENT: [...] Recommendations: Discharge Recommendations: Continue to assess pending progress,Subacute/Halfway Facility. Unsafe to return home at this [...] to navigate home distances. Additional Goals?: No Gold Miner Goals Time Frame for skilled nursing goals : N/A due to short ELOS [...] NC and continued to monitor. * Oumou Eilzabeth RN - 02/07/2022 4:43 PM EDT Home medication and supply waiver completed and faxed to pharmacy * Brianne Perez RPH - 02/07/2022 4:29 PM EDT Pharmacy Note Alisia Correa was ordered Zetia 10 mg nightly. [facility], this medication is non-formulary [...] PM EDT Pt admitted to [facility] via cart/stretcher. Complaints: L2-S1 decompression/fusion. [...] room. Explained patients right to have family, claim representative or physician notified of their admission. Patient has Declined for physician to be notified. Patient has Declined for family/claim representative to be notified. The patient is interested in [facility] program?: No Policies and procedures for 7K explained. All questions answered with no further questions at this time. Fall prevention and safety brochure discussed with patient. Bed alarm on. Call light in reach. * Kiara Toro RN - 02/07/2022 9:49 AM EDT ADMITTED TO [facility] AND ORIENTED TO UNIT. SCDS ON. FALL AND ALLERGY BANDS ON. PT VERBALIZED APPROVAL FOR FIRST NAME, LAST INITIAL AND PHYSICIAN NAME ON UNIT WHITEBOARD. * Evangelist Cummins - 01/20/2022 9:11 AM EDT Called for PAT reminder Lft Msg. documented [facility] this [facility] Phone: [phone] 377-307905-03-2022 Hospital Discharge instructions* Discharge Instr - DYLON* [...] directive for healthcare treatment Durable power of real estate associate attorney for health care No, copy requested from family Healthcare power of real estate associate attorney Dipti- -- Admitting Physician: Frank Oden MD PCP: ELLEN CRABTREE DO Discharging Nurse: Discharging Hospital Unit/Room#: 7K-12/012-A Discharging Unit Phone Number: Emergency Contact: Extended Emergency Contact Information Primary Emergency Contact: Dipti Correa Mobile Relation: Spouse Preferred language: Czech Software Quality Engineer needed? No Past Surgical History: Past Surgical History: Procedure Laterality Date BACK SURGERY x8 CYST REMOVAL spine with back surgery ESOPHAGUS SURGERY for cancer HAND SURGERY x3 HIP ARTHROPLASTY Bilateral KNEE ARTHROPLASTY Bilateral left x2 LUMBAR FUSION N/A 02/07/2022 L2-S1 DECOMPRESSION L2-S1 POSTERIOR FUSION WITH ILIAC BOLTS, L5-S1 TLIF performed by Frank Oden MD at [facility] OR NECK SURGERY lymph nodes SHOULDER [...] Assisted Dressing Assisted Toileting Assisted Feeding Assisted Customer Service Driver Assisted Med Delivery whole Wound Care Documentation [...] applicable) Name: Address: Dialysis Schedule: Phone: Fax: Tile Layer Helper/Transcribing Machine Mechanic signature: {Esignature:[id number]} PHYSICIAN SECTION Prognosis: {Prognosis:4878366840} Condition at Discharge: {MH Patient Condition:772668358} Rehab Potential (if transferring to Rehab): {Prognosis:3597955070} Recommended Labs or Other Treatments After Discharge: Physician Certification: I certify the above information and transfer of Alisia Correa is necessary for the continuing treatment of the diagnosis listed and that he requires {Admit to Appropriate Level of Care:58998} for {GREATER/LESS:514440538} 30 days. Update Admission H&P: {CHP DME Changes in HandP:703026158} PHYSICIAN SIGNATURE: * Additional Instructions* Nevaeh Oviedo, ALFONSO - 02/11/2022 Back Surgery Activity No lifting, [...] All vegetables, especially asparagus, jack sprouts, broccoli, [place] sprouts, cabbage, carrots, cauliflower, celery, corn, greens, [...] taking more than one drug. This includes [id number] medication and herb or dietary supplements. Plan [...] dr schrader 6-8 weeks documented in this [facility] Work Phone: 1(784) 151-565104-23-2022 NotePROCEDURE: XR CHEST PORTABLE CLINICAL INFORMATION: SOB. [...] by: Romel Maldonado DO 02/08/22 Final resultSaint [facility]04-23-2022 NotePROCEDURE: XR CHEST PORTABLE CLINICAL INFORMATION: [...] stable degenerative changes of the acromioclavicular joints. [facility] RIS [id number] NotePROCEDURE: XR LUMBAR SPINE 1 VW CLINICAL [...] Signed by: Milton Way MD 02/07/22 Final [facility]04-[facility]-2022 NotePROCEDURE: XR LUMBAR SPINE 1 [...] the L2 and L3 vertebral bodies. [facility] [id number] Evaluation note* Encounter Date Diagnosis Assessment Notes [...] Nasal swab noted MRSA. Advised patient to leaf size picker antibiotic and start it as soon as possible. [facility] Other 04-07-2022 NotePROCEDURE: XR CHEST (2 VW) [...] Signed by: Olga Espinoza MD 01/23/22 Final [facility]SB[facility]04-04-2022 Evaluation note* Encounter Date Diagnosis Assessment Notes Treatment Notes Treatment Clinical Notes Jan, Parkinsonism (ICD-10 - G20) Jan, Diabetes (ICD-10 - E11.9) [facility] Other 03-28-2022 Evaluation note* Encounter Date Diagnosis Assessment Notes Treatment Notes Treatment Clinical Notes Dec, Constipation (ICD-10 - K59.00) [facility] Other 02-17-2022 Evaluation note* Encounter Date Diagnosis Assessment Notes Treatment Notes Treatment Clinical Notes Nov, Hyperlipidemia (ICD-10 - E78.5) Nov, Parkinsonism (ICD-10 - G20) Patient following with neurologist Dr. Mancia and senior staff specialized employment Dr. Harris. He reports improvement with his [...] symptoms, symptom details unspecified (ICD-10 - N40.1) [facility] Other [id number] Miscellaneous Notes* Telephone Encounter - Chrissy Christian - 11/25/2021 3:17 PM EST FINAL ATTEMPT Called and left detailed message for patient to call to schedule procedure with pain management. Will follow up. Patient provided with direct extension to reach surgical coordinators. If patient calls back, please transfer to [phone]. * Telephone Encounter - Chrissy Christian - 11/21/2021 6:07 PM EST Bilateral L 2-3 ,3-L4, L4-L5 and L5-S1 FACET ALISIA CORREA [id number] JEANNIE HENDERSON Called and left detailed message for patient to call to schedule procedure with pain management. Will follow up. Patient provided with direct extension to reach surgical coordinators. If patient calls back, please transfer to [phone]. * Telephone Encounter - Chrissy Christian - 11/14/2021 11:53 AM EST Bilateral L 2-3 ,3-L4, L4-L5 and L5-S1 FACET ALISIA CORREA [phone] JEANNIE Called and left detailed message for patient to call to schedule procedure with pain management. Will follow up. Patient provided with direct extension to reach surgical coordinators. If patient calls back, please transfer to [phone]. * Telephone Encounter - Kiara Dhaliwal RN [...] relief from today's block. [facility]* Encounter Date Diagnosis Assessment Notes Treatment Notes Treatment Clinical Notes Oct, Hypotension, unspecified hypotension type (ICD-10 - I95.9) Oct, Risk for falls (ICD-10 - Z91.81) Oct, Diabetes (ICD-10 - E11.9) Oct, Neuropathy (ICD-10 - G62.9) Oct, Failed back syndrome (ICD-10 - M96.1) Oct, Parkinsonism (ICD-10 - G20) [facility] Other 12-13-2021 Evaluation note* Encounter Date Diagnosis Assessment Notes Treatment Notes Treatment Clinical Notes Sep, Parkinsonism (ICD-10 - G20) [facility] Other 11-16-2021 Evaluation note* Encounter Date Diagnosis Assessment Notes Treatment Notes Treatment Clinical Notes Aug, Benign prostatic hyperplasia with lower urinary tract symptoms (ICD-10 - N40.1) [facility] Other 11-09-2021 Evaluation note* Encounter Date Diagnosis [...] I strongly recommend the patient contact his tow boat captain to be evaluated. 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 [facility] Other 10-28-2020 History of Present illness Narrative* [...] 15, 2020 8:27 AM documented in this encounterC[facility]08-[facility] History of Present illness Narrative* Peace [...] 15, 2020 9:03 AM documented in this encounterC[facility]02-19-2018 History of Past illness Narrative* Problem Noted Date Resolved Date Ulcerative lesion 12/07/2017 07/21/2019 Glenohumeral arthritis 07/17/2016 9 SPRAIN OF NECK () 03/06/2004 07/21/20 Brachial neuritis or radiculitis 03/06/2004 12/22/2018 Carpal tunnel syndrome 03/06/2004 9 documented as of this encounter (statuses as of 01/28/2022) [facility] History of Past illness Narrative* Problem Noted Date Resolved Date Ulcerative lesion 12/07/2017 07/21/2019 Glenohumeral arthritis 07/17/2016 9 Urgency of urination 07/31/2006 12/05/2022 SPRAIN OF NECK () 03/06/2004 07/21/20 Brachial neuritis or radiculitis 03/06/2004 12/22/2018 Carpal tunnel syndrome 03/06/2004 9 documented as of this encounter (statuses as of 12/06/2022) [facility] History of Past illness Narrative* Problem Noted Date Resolved Date Ulcerative lesion 12/07/2017 07/21/2019 Glenohumeral arthritis 07/17/2016 9 Urgency of urination 07/31/2006 12/05/2022 SPRAIN OF NECK () 03/06/2004 07/21/20 Brachial neuritis or radiculitis 03/06/2004 12/22/2018 Carpal tunnel syndrome 03/06/2004 9 documented as of this encounter (statuses as of 12/25/2022) [facility] History of Past illness Narrative* Problem Noted Date Diagnosed Date Resolved Date Ulcerative lesion 12/07/2017 07/21/2019 Glenohumeral arthritis 07/17/201612/22 Urgency of urination 07/31/2006 023 SPRAIN OF NECK () 03/06/200412/2018 Brachial neuritis or radiculitis 03/06/2004 12/22/2018 Carpal tunnel syndrome 03/06/200412/22 documented as of this encounter (statuses as of 05/29/2023) [facility]02-19-2018 History of Past illness Narrative* Problem Noted Date Diagnosed Date Resolved Date Ulcerative lesion 12/07/2017 07/21/2019 Glenohumeral arthritis 07/17/201612/22 Urgency of urination 07/31/2006 023 SPRAIN OF NECK () 03/06/200412/2018 Brachial neuritis or radiculitis 03/06/2004 12/22/2018 Carpal tunnel syndrome 03/06/200412/22 documented as of this encounter (statuses as of 05/29/2023) [facility]02-[facility]-2018 History of Past illness Narrative* Problem Noted Date Diagnosed Date Resolved Date Ulcerative lesion 12/07/2017 07/21/2019 Glenohumeral arthritis 07/17/201612/22 Urgency of urination 07/31/2006 023 SPRAIN OF NECK () 03/06/200412/2018 Brachial neuritis or radiculitis 03/06/2004 12/22/2018 Carpal tunnel syndrome 03/06/200412/22 documented as of this encounter (statuses as of 05/29/2023) [facility]08-[facility]2012 History general Narrative - Reported* Type Description Date Medical History 06/07/12 Stress Test [facility] Medical History 2008-colonoscopy wit h Dr. Ordonez; 07/2016 colonoscopy/egd [facility] Medical History 01/26/15 Labs Medical History 03/2016- [place] Medical History 03/2016 E[place] Medical History 08/20/16 PSA ( 0.79) Medical [...] Surgical History T&A Surgical History lumbar surgery. 12--10 Surgical History back surgery - Surgical History left knee surgery 06/2013 Surgical History pain stimulator 06/2016 Surgical History left knee total replacement 2 n d 04/27/2017 Surgical History Right Total Knee Replacement Surgical History Left Shoulder Replacement 12/29 Surgical History Prostate Bands Placed 8 Surgical History bronchoscopy 02/17/2019 Surgical History Right total hip-CC 04/10/20 Hospitalization History SEE ABOVE [facility] Other 08-20-2012 History general Narrative - Reported* Type Description Date Medical History 06/07/12 Stress Test NO Medical History 2008-colonoscopy ruba Ordonez; 07/2016 colonoscopy/egd [facility] Medical History 01/26/15 Labs Medical History 03/2016- [place] Medical History 03/2016 EGD [place] Medical History 08/20/16 PSA ( 0.79) Medical [...] Roman hinkle 10/2021 Hospitalization History SEE ABOVE [facility] Other 08-20-2012 History general Narrative - Reported* Type Description Date Medical History 06/07/12 Stress Test NO Medical History 2008-colonoscopy ruba Ordonez; 07/2016 colonoscopy/egd [facility] Medical History 01/26/15 Labs Medical History 03/2016- [place] Medical History 03/2016 EGD [place] Medical History 08/20/16 PSA ( 0.79) Medical History f/u with Pain Mgmt Dr Elkins as of 02/2017 Medical History f/u with Ortho Dr Conway (left k nee) Medical History Smoker- quits and restarts often Medical History 10/14/19 Colonoscopy w/ Dr. Mcdonald rodney Medical History Right total hip-04/10/20 Medical History [...] Roman hinkle 10/2021 Hospitalization History SEE ABOVE [facility] Other 08-20-2012 History general Narrative - Reported* Type Description Date Medical History 06/07/12 Stress Test NO Medical History 2008-colonoscopy wit h Dr. Ordonez; 07/2016 colonoscopy/egd [facility] Medical History 01/26/15 Labs Medical History 03/2016- [place] test [place] Medical History 03/2016 EGD [place] Medical History 08/20/16 PSA ( 0.79) Medical [...] Dr Romo 01/2022 Hospitalization History SEE ABOVE [facility] Other 08-20-2012 History general Narrative - Reported* Type Description Date Medical History 06/07/12 Stress Test [facility] Medical History 2008-colonoscopy ruba Ordonez; 07/2016 colonoscopy/egd [facility] Medical History 01/26/15 Labs Medical History 03/2016- [place] test [place] Medical History 03/2016 EGD [place] Medical History 08/20/16 PSA ( 0.79) Medical [...] History SEE ABOVE Hospitalization History pneumonia 10/2022 [facility] Other 08-20-2012 History general Narrative - Reported* Type Description Date Medical History 06/07/12 Stress Test [facility] Medical History 2008-colonoscopy wit h Dr. Ordonez; 07/2016 colonoscopy/egd [facility] Medical History 01/26/15 Labs Medical History 03/2016- [place] test [place] Medical History 03/2016 EGD [place] Medical History 08/20/16 PSA ( 0.79) Medical [...] History SEE ABOVE Hospitalization History pneumonia 10/2022 [facility] Other Chief complaint Narrative - ReportedALISIA CORREA is being seen for a consultation for chest pain.-[facility] [address] DO Work Phone: Chief complaint Narrative - Reported* ALISIA CORREA is being seen for a consultation for chest pain. * 60-year-old white male who is being evaluated at the request of PCP for symptoms of dyspnea and chest pain with syncope. The patient appears older than his stated age and unfortunately has history ofParkinson's disease followed by neurology from [place] on medical therapy. The patient has been [...] 7 Parkinson's disease followed by neurology from [place]. * 8 obesity, encouraged the patient to reduce caloric consumption * 9 possible PAD, patient is following up with podiatry -[place] [id number] Work Phone: Evaluation + Plan note Future Appointments Appointment Date:02/20/2023 09:15:00 AM Scheduled Provider:Fidel IBARRA MD Location:[facility] Appointment Type:URO Office Visit [facility] evaluation + Plan note Future Appointments Appointment Date:03/20/2023 09:00:00 AM Scheduled Provider: Location:[facility] Appointment Type:URO Nurse Visit [facility] evaluation + Plan note Future Appointments Appointment Date:04/17/2023 09:00:00 AM Scheduled Provider: Location:[facility] Appointment Type:URO Nurse Visit [facility] evaluation + Plan note Future Appointments Appointment Date:05/25/2023 11:00:00 AM Scheduled Provider: Location:[facility] Appointment Type:URO Nurse Visit [facility] evaluation + Plan note Future Appointments Appointment Date:06/19/2023 11:00:00 AM Scheduled Provider: Location:[facility] Appointment Type:URO Nurse Visit [facility] evaluation + Plan note Future Appointments Appointment Date:06/19/2023 11:00:00 AM Scheduled Provider: Location:[facility] [place] Appointment Type:URO Nurse Visit Diagnostic Tests Pending * [facility]ments Appointment Date:07/17/2023 11:00:00 AM Scheduled Provider: Location:[facility] [place] Appointment Type:URO Nurse Visit [facility] evaluation + Plan note Future Appointments Appointment Date:07/17/2023 11:00:00 AM Scheduled Provider: Location:[facility] [place] Appointment Type:URO Nurse Visit Diagnostic Tests Pending * [facility]rine [facility] App[facility]ments Appointment Date:08/14/2023 11:00:00 AM Scheduled Provider: Location:[facility] Appointment Type:URO Nurse Visit [facility] evaluation + Plan note Future Appointments Appointment Date:08/14/2023 11:00:00 AM Scheduled [facility] Nurse Visit Diagnostic Tests Pending * [facility] App[facility]ments Appointment Date:09/14/2023 11:00:00 AM Scheduled Provider: Location:[facility] [place] Appointment Type:URO Nurse Visit [facility] evaluation + Plan note Future Appointments Appointment Date:10/20/2023 11:00:00 AM Scheduled Provider: Location:[facility] Appointment Type:URO Nurse Visit [facility] evaluation + Plan note Future Appointments Appointment Date:11/16/2023 11:00:00 AM Scheduled Provider: Location:[facility] Appointment Type:URO Nurse Visit Diagnostic Tests Pending * Urine [facility] App[facility]ments Appointment Date:12/14/2023 11:30:00 AM Scheduled Provider: Location:[facility] Appointment Type:URO Nurse Visit [facility] evaluation + Plan note Future Appointments Appointment Date:02/01/2024 11:00:00 AM Scheduled Provider: Location:[facility] Appointment Type:URO Nurse Visit [facility] evaluation + Plan note Future Appointments Appointment Date:02/22/2024 11:00:00 AM Scheduled Provider: Location:[facility] Appointment Type:URO Nurse Visit [facility] evaluation + Plan note Future Appointments Appointment Date:03/15/2024 10:30:00 AM Scheduled Provider: Location:[facility] Appointment Type:URO Nurse Visit [facility] evaluation + Plan note Future Appointments Appointment Date:03/15/2024 10:30:00 AM Scheduled Provider: Location:[facility] Appointment Type:URO Nurse Visit Diagnostic Tests Pending * Urine [facility] App[facility]ments Appointment Date:04/05/2024 02:40:00 PM Scheduled Provider:TITI Duncan APRN, [employer] Location:[facility] Appointment Type:URO Office Visit [facility] evaluation + Plan note Future Appointments Appointment Date:04/26/2024 11:30:00 AM Scheduled Provider:TITI Duncan APRN, [place] Location:[facility] Appointment Type:URO Office Visit [facility] evaluation + Plan note Future Appointments Appointment Date:04/26/2024 11:30:00 AM Scheduled Provider:TITI Duncan APRN, [place] Location:[facility] Appointment Type:URO Office Visit Diagnostic Tests Pending * Urine Culture [facility] App[facility]ments Appointment Date:06/30/2024 11:00:00 AM Scheduled Provider:Madeline Harry Location:[facility] Appointment Type:URO Office Visit [facility] evaluation + Plan note Future Appointments Appointment Date:06/30/2024 11:00:00 AM Scheduled Provider:Madeline Harry Location:[facility] Appointment Type:URO Office Visit Diagnostic Tests Pending * Urine Culture 06/14/24 [facility] evaluation + Plan note Future Appointments Appointment Date:08/09/2024 02:30:00 PM Scheduled Provider:TITI Duncan APRN, [place] Location:[facility] Appointment Type:URO Office Visit [facility] evaluation + Plan note Future Appointments Appointment Date:08/30/2024 11:40:00 AM Scheduled Provider:LYN MACE PA-C Location:[facility] Appointment Type:URO Office Visit [facility] evaluation + Plan note Future Appointments Appointment Date:09/27/2024 11:20:00 AM Scheduled Provider:LYN MACE PA-C Location:[facility] Appointment Type:URO Office Visit [facility] evaluation + Plan note Future Appointments Appointment Date:07/19/2024 12:30:00 PM Scheduled Provider:TITI Duncan APRN, [place] Location:[facility] Appointment Type:URO Office Visit [facility] evaluation + Plan note Future Appointments Appointment Date:10/28/2024 11:20:00 AM Scheduled Provider:LYN MACE PA-C Location:[facility] Appointment Type:URO Office Visit Diagnostic Tests Pending * Urine Culture 09/27/24 [facility] evaluation + Plan note Future Appointments Appointment Date:10/28/2024 11:20:00 AM Scheduled Provider:LYN MACE PA-C Location:[facility] Appointment Type:URO Office Visit [facility] evaluation + Plan note Future Appointments Appointment Date:11/25/2024 11:20:00 AM Scheduled Provider:LYN MACE PA-C Location:[facility] Appointment Type:URO Office Visit [facility] evaluation + Plan note Future Appointments Appointment Date:12/27/2024 11:20:00 AM Scheduled Provider:LYN MACE PA-C Location:[facility] Appointment Type:URO Complex Office Visit [facility] evaluation + Plan note Future Appointments Appointment Date:12/27/2024 11:20:00 AM Scheduled Provider:LYN MACE PA-C Location:[facility] Appointment Type:URO Complex Office Visit Diagnostic Tests Pending * Urine Culture 11/28/24 [facility] Evaluation + Plan note Future Appointments Appointment Date:04/24/2025 10:00:00 AM Scheduled Provider:LYN MACE PA-C Location:[facility] Appointment Type:URO Office Visit Appointment Date:05/15/2025 10:00:00 AM Scheduled Provider:LYN MACE PA-C Location:[facility] Appointment Type:URO Office Visit [facility] [employer] evaluation + Plan note Future Appointments Appointment Date:05/15/2025 10:00:00 AM Scheduled Provider:LYN MACE PA-C Location:[facility] Appointment Type:URO Office Visit [facility] [employer] evaluation + Plan note Future Appointments Appointment Date:06/14/2025 12:30:00 PM Scheduled Provider:Michelle Mahoney PA-C Location:[facility] Appointment Type:URO Office Visit [facility] [employer] evaluation + Plan note Future Appointments Appointment Date:08/02/2025 02:30:00 PM Scheduled Provider:Michelle Mahoney PA-C Location:[facility] Appointment Type:URO Office Visit [facility] [employer] evaluation note* Diagnosis Lumbar stenosis with neurogenic claudication- Primary Spinal stenosis, lumbar region, with neurogenic claudication Idiopathic hypotension Hypotension, unspecified documented in this encounter [employer] Phone: [email or web address] noteNo [facility] Other Evaluation note* Diagnosis NO SHOW- Primary documented in this encounter [facility] note* Diagnosis Postlaminectomy syndrome of lumbar region Postlaminectomy syndrome, lumbar region Pain in thoracic spine Spinal cord stimulator status Other postprocedural status documented in this encounter [facility] note* Diagnosis Radiculopathy of lumbar region Thoracic or lumbosacral neuritis or radiculitis, unspecified [facility] Diagnosis Pain in thoracic spine S/P insertion of spinal cord stimulator [facility] Diagnosis Onset Date Resolution Status Diarrhea acute Incontinence of bowel acute Mucus in stool acute Nausea acute [facility] Work Phone: Evaluation note* Diagnosis Onset Date Resolution Status Diarrhea acute Incontinence of bowel acute Mucus in stool acute Nausea acute Chronic pain syndrome acute Hyperlipidemia acute Hypotestosteronism acute Mucus in stool acute Neurogenic bladder acute Neurogenic bowel acute Suprapubic catheter acute [facility] Work Phone: Evaluation note* Diagnosis Onset Date Resolution Status Diarrhea acute DMII (diabetes mellitus, type 2) acute Frequent headaches acute Mucus in stool acute Parkinsons acute Sepsis acute Suprapubic catheter acute [facility] Work Phone: Evaluation note* Diagnosis Encounter [...] fluctuating manifestations (CMS-HCC) [facility] Diagnosis Encounter for screening for abdominal aortic aneurysm (AAA) in patient 50 years of age or older with history of smoking- Primary Critical limb ischemia of both lower extremities with gangrene (CMS-HCC) Abdominal aortic aneurysm dissection (CMS-HCC) Dissection of aorta, abdominal Critical limb ischemia of both lower extremities with gangrene (CMS-HCC)- Primary Orthostasis Orthostatic hypotension [facility]* Diagnosis Encounter for screening [...] (CMS-HCC) Paralysis agitans documented [facility]* Diagnosis Encounter for [...] (CMS-HCC) Paralysis agitans [facility]* Diagnosis Migraine without aura and without status migrainosus, not intractable [facility]* Diagnosis Migraine without aura and without status migrainosus, not intractable documented [facility] noteNo assessment information available [facility] Work Phone: Evaluation note* Diagnosis Parkinson's disease Paralysis agitans documented [facility]* Diagnosis Parkinson's disease Paralysis agitans documented [facility]* Diagnosis Critical limb ischemia of both lower extremities with gangrene (CMS-HCC)- Primary [facility] in [facility]* Diagnosis Parkinson's disease without dyskinesia or fluctuating manifestations- Primary Spinal stenosis of lumbar region with neurogenic claudication Anxiety Anxiety state, unspecified documented [facility]* Diagnosis Orthostasis Orthostatic hypotension documented in [facility]* Diagnosis Spinal stenosis of lumbar region with neurogenic claudication documented [facility]* Diagnosis Migraine without aura and without status migrainosus, not intractable documented in [facility]* Diagnosis Encounter for screening for abdominal aortic aneurysm (AAA) in patient 50 years of age or older with history of smoking- Primary Critical limb ischemia of both lower extremities with gangrene (CMS-HCC) Abdominal aortic aneurysm dissection (CMS-HCC) Dissection of aorta, abdominal documented in [facility]* Diagnosis 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) documented in [facility]* Diagnosis Encounter for [...] neurogenic claudication documented in this encounter [facility]* Diagnosis Encounter for [...] Paralysis agitans documented in this encounter [facility]* Diagnosis Encounter for [...] Orthostatic hypotension documented in this encounter [facility]* Diagnosis Encounter for [...] not intractable documented in this encounter [facility]* Diagnosis Encounter for [...] neurogenic claudication documented in this encounter [facility]* Diagnosis Onset Date Resolution Status Admit Date Depression acute December 29 1:14pm Diabetes acute December 29 1:14pm Migraine acute December 29 1:14pm Parkinsons acute December 29 1:14pm Suprapubic catheter acute December 29, 2024 1:14pm [facility] Work Phone: Evaluation note* Diagnosis Encounter [...] Other cerebellar ataxia documented in this encounter [facility]* Diagnosis Encounter for [...] with gangrene (CMS-HCC) documented in this encounter [facility]* Diagnosis Encounter for [...] the basal ganglia documented in this encounter [facility]* Diagnosis Encounter for [...] with neurogenic claudication [facility] Encounter for screening for [...] Dysphagia, unspecified type [facility] Diagnosis Encounter for screening for [...] headache type- Primary [facility] Diagnosis Encounter for screening for [...] claudication [facility] Narrative No data available for this section [facility] Hospital Discharge instructions No data available for this section [facility] InstructionsNot on filedocumented in this encounter [facility] [...] available for this section [facility] reason for referral (narrative)* Reason Home physical therap y evaluation and treatment requested. Diagnosis 1 Hypotension, unspeci fied hypotension type (I95.9) Diagnosis 2 Diabetes (E11.9) Diagnosis 3 Parkinsonism (G20) Diagnosis 4 Neuropathy (G62.9) Diagnosis 5 Failed back syndrome (M96.1) Diagnosis 6 Risk for falls (Z91. 81) Referral Organization [facility] Referring Provider First Name Ellen Referring Provider Last Name Leyda Referring Provider Specialty Family Prac candice Referred Organization [facility] Referred Address [address] [place], [place],[address] Referred Provider Specialty Physical The rapist Referral Priority Routine [facility] [employer] Other Reason for referral (narrative)* Reason Patient is needing i n office consultation for change in stool and nausea. Please call patient with appointment date and time Diagnosis 1 Change in stool (R19 .5) Diagnosis 2 Nausea (R11.0) Referral Organization [facility] Referring Provider First Name Ellen Referring Provider Last Name Leyda Referring Provider Specialty Family Prac candice Referred Organization [facility] Referred Address [address],[address] Referred Provider Specialty Gastroentero logy Referral Priority Routine [facility] [employer] Other Reason for visit Narrative* Auth/Cert Specialty [...] Oden MD [address] [place] [address] [place] [address] [email or web address] [address] [place] [address] Referral ID Status Reason Start Date Expiration Date Visits Re quested Visits Authorized [id number] 1 1 [employer] Phone: Summary Purpose Family History No Family [...] FoundDocuments on File Type Date Recorded Patient 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 Note HNO ID: [id number] Author: Jason Guevara Jr. Service: Orthopaedic Surgery [...] (more content not included)... Note HNO ID: [id number] Author: Judy Mathews Service: ? Author Type: Nurse Vice President Of Product Marketing Type: Anesthesia Procedure Notes Filed: 05/03/2020 1:32 PM Note Text: ANESTHESIOLOGY PROCEDURE NOTE Airway General Information Procedure Start Time/Medication Administration: 05/03/2020 12:55 PM Patient location during procedure: OR Staffing LEMON PICKER: Kathleen Mathews Performed by: APRIL Indications and [...] not included)... Procedure Findings Note HNO ID: [id number] Author: Judy Jaquez) Bisi Service: ? 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) Referral Organization [facility] Family Medicin e [place] Referring Provider First Name Ellen Referring Provider Last Name Leyda Referring Provider Specialty Family Prac candice Referred Organization [facility] Gastroenterolo gy Referred Provider Yifan Gama Referred Address [address] [place] [phone] Referred Provider Specialty Gastroentero logy Referral Priority Routine General Notes Tomeka Hussein 021 10:28:40 AM >Graciela, is this suppose to be urgentVeGraciela farley 08/06/2021 10:49:26 AM > no, sorry must have accidentally made urgent :) Specialty Diagnoses / Procedures Referred By Agustina molina Referred To Contact Rehabilitation Diagnoses Parkinson's disease without dyskinesia or fluctuating manifestations Reena Cervantes APRN-SUPERVISOR SEWING ROOM [address] [place] [id number] Referral ID Status Reason Start Date Expiration Date Visits Requested Visits Authorized [id number] Pending Review Specialty Services Required 11/16/2023 11/15/2024 1 1 Specialty Diagnoses / Procedures Referred By Contac t Referred To Contact Speech Pathology Diagnoses Parkinson's disease without dyskinesia or fluctuating manifestations Reena Cervantes, POT OPERATOR-SUPERVISOR SEWING ROOM [address] [place] [address] Referral ID Status Reason Start Date Expiration Date Visits Requested Visits Authorized [id number] Pending Review Specialty Services Required 11/16/2023 11/15/2024 1 1 Specialty Diagnoses / Procedures Referred By Contac t Referred To Contact Diagnoses Critical limb ischemia of both lower extremities with gangrene ([facility] [place] [place]) Procedures Vas art doppler lwr bilat mult lev/PVR Heidy Marin MD [address], [address] [address] Referral ID Status Reason Start Date Expiration Date V isits Requested Visits Authorized [id number] Pending Review 01/28/2024 01/27/2025 1 1 Specialty Diagnoses / Procedures Referred By Contac t Referred To Contact Diagnoses Encounter for screening for abdominal aortic aneurysm (AAA) in patient 50 years of age or older with history of smoking Abdominal aortic aneurysm dissection ([facility] [place] [place]) Procedures Vas aorta/iliac duplex complete Heidy Marin MD [address], [address] [address] Referral ID Status Reason Start Date Expiration Date V isits Requested Visits Authorized [id number] Pending Review 01/28/2024 01/27/2025 1 1 Health [...] bowel Suprapubic catheter Chief Complaint Amb Documentation hospital/[place] follow up Reason for Visit Diarrhea DMII [...] 2025 1:44pm DMII (diabetes mellitus, type 2) [facility] 1:[facility] GI bleed June 28, 2025 1:44pm Hyperlipidemia June 28, 2025 1:44pm Impaired mobility June 28, 2025 1:44pm Neurogenic bladder June 28, 2025 1:44pm Neurogenic bowel June 28, 2025 1:44pm Obesity June 28, 2025 1:44pm Parkinsons June 28, 2025 1:44pm Recurrent UTI June 28, 2025 1:44pm Chief Complaint Admit Date GIB s/t anastomotic leak s/p kenan-en-rev ersal June 28, 2025 1:44pm GIB s/t anastomotic leak s/p kenan-en-rev ersal July 05, 2025 12:00am GIB s/t anastomotic leak s/p kenan-en-rev ersal July 12, 2025 12:00am Amb Documentation July 18, 2025 9:31am Additional Source Comments (unrecognized sect ion and [...] section and content) DATE CREATED AUTHOR 04/09/2018 [facility] DATE CREATED AUTHOR AUTHOR'S ORGANIZ ATION 04/14/2018 [facility] DATE CREATED AUTHOR AUTHOR'S ORGANIZ ATION 04/14/2018 [facility] DATE CREATED AUTHOR AUTHOR'S ORGANIZ ATION 05/12/2020 [facility] DATE CREATED AUTHOR AUTHOR'S ORGANIZ ATION 09/17/2020 [facility] DATE CREATED AUTHOR AUTHOR'S ORGANIZ ATION 08/18/2021 [facility] DATE CREATED AUTHOR AUTHOR'S ORGANIZ ATION 09/10/2021 [facility] DATE CREATED AUTHOR AUTHOR'S ORGANIZ ATION 02/23/2022 [facility] DATE CREATED AUTHOR AUTHOR'S ORGANIZ ATION 12/15/2022 [facility] DATE CREATED AUTHOR AUTHOR'S ORGANIZ ATION 12/26/2022 [facility] DATE CREATED AUTHOR AUTHOR'S ORGANIZ ATION 03/29/2023 [facility] DATE CREATED AUTHOR AUTHOR'S ORGANIZ ATION 04/08/2024 [facility] DATE CREATED AUTHOR AUTHOR'S ORGANIZ ATION 04/24/2024 [facility] DATE CREATED AUTHOR AUTHOR'S ORGANIZ ATION 07/02/2024 [facility] DATE CREATED AUTHOR AUTHOR'S ORGANIZ ATION 10/02/2024 [facility] DATE CREATED AUTHOR AUTHOR'S ORGANIZ ATION 10/31/2024 [facility] DATE CREATED AUTHOR AUTHOR'S ORGANIZ ATION 12/04/2024 [facility] DATE CREATED AUTHOR AUTHOR'S ORGANIZ ATION 12/29/2024 [facility] DATE CREATED AUTHOR AUTHOR'S ORGANIZ ATION 03/17/2025 [facility] DATE CREATED AUTHOR AUTHOR'S ORGANIZ ATION 03/18/2025 [facility] DATE CREATED AUTHOR AUTHOR'S ORGANIZ ATION 04/04/2025 [facility] DATE CREATED AUTHOR AUTHOR'S ORGANIZ ATION 07/20/2025 [facility] DATE CREATED AUTHOR AUTHOR'S ORGANIZ ATION 07/22/[address] [facility] DATE CREATED AUTHOR AUTHOR'S ORGANIZ ATION 07/26/2025 [facility] Source Comments (unrecognize d section and content) In the event this informatio n is protected by the Federal Confidentiality of Alcohol and Drug Abuse Patient Records regulations: The Federal rules restrict any use of the information to criminally investigate or prosecute any alcohol or drug abuse patient.[facility] the event this information is protected by the Federal Confidentiality of Alcohol and Drug Abuse Patient Records regulations: The Federal rules restrict any use of the information to criminally investigate or prosecute any alcohol or drug abuse patient.[facility] the event this information is protected by the Federal Confidentiality of Alcohol and Drug Abuse Patient Records regulations: The Federal rules restrict any use of the information to criminally investigate or prosecute any alcohol or drug abuse patient.[facility] the event this information is protected by the Federal Confidentiality of Alcohol and Drug Abuse Patient Records regulations: The Federal rules restrict any use of the information to criminally investigate or prosecute any alcohol or drug abuse patient.[facility] the event this information is protected by the Federal Confidentiality of Alcohol and Drug Abuse Patient Records regulations: The Federal rules restrict any use of the information to criminally investigate or prosecute any alcohol or drug abuse patient.[facility] the event this information is protected by the Federal Confidentiality of Alcohol and Drug Abuse Patient Records regulations: The Federal rules restrict any use of the information to criminally investigate or prosecute any alcohol or drug abuse patient.[facility] Reason for Visit (unrecogniz ed section [...] Care Teams (unrecognized sec tion and content) Welder And Fitter Relationship Specialty Start Date End Date Ellen Crabtree [address] [phone] PCP - General 06/10/02 Welder And Fitter Relationship Specialty Start Date End Date Ellen Crabtree DO PCP - General Family Medicine 01/23/22 Welder And Fitter Relationship Specialty Start Date End Date Ellen Crabtree [address] [place], [place] [phone] PCP - General 06/10/02 Welder And Fitter Relationship Specialty Start Date End Date Ellen Crabtree [address] [place], [place] [phone] PCP - General 06/10/02 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 And 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 Relationship Specialty Start Date End Date Ellen Crabtree [address] [place], [place] [phone] PCP - General 06/10/02 Welder And Fitter Relationship Specialty Start Date End Date Ellen Crabtree [address] [place], [place] [phone] PCP - General 06/10/02 Welder And Fitter Relationship Specialty Start Date End Date Ellen Crabtree [address] [place], [place] [phone] PCP - General 06/10/02 Team Status: Active Member Role Status Dates Samira Bowden Specialist Active Ren Watson MD Specialist Active Graciela Macias LPN Care Manager Active Fidel Ibarra MD Specialist Active Ellen Crabtree , DO Primary Care Provider Active Team Status: [...] June 21, 2024 End: June 21, 2024 Welder And Fitter Relationship Specialty Start Date End Date Ellen Crabtree DO [address] [place], [place] [phone] PCP - General Family Medicine 01/17/21 Welder And Fitter Relationship Specialty Start Date End Date Ellen Crabtree DO [address] [place], [place] [phone] PCP - General Family Medicine 01/17/21 Welder And Fitter Relationship Specialty Start Date End Date Ellen Crabtree DO [address] [place], [place] [phone] PCP - General Family Medicine 01/17/21 Welder And Fitter Relationship Specialty Start Date End Date Ellen Crabtree DO [address] [place], [place] [phone] PCP - General Family Medicine 01/17/21 Welder And Fitter Relationship Specialty Start Date End Date Ellen Crabtree DO [address] [place] [phone] PCP - General Family Medicine 01/17/21 Welder And Fitter Relationship Specialty Start Date End Date Ellen Crabtree DO [address] [place] [phone] PCP - General Family Medicine 01/17/21 Welder And Fitter Relationship Specialty Start Date End Date Ellen Crabtree DO [address] [place] [phone] PCP - General Family Medicine 01/17/21 [...] November 28, 2024 End: November 28, 2024 Welder And Fitter Relationship Specialty Start Date End Date Ellen Crabtree DO [address] [place] [phone] PCP - General Family Medicine 01/17/21 Welder And Fitter Relationship Specialty Start Date End Date Ellen Crabtree DO [address] [place] [phone] PCP - General Family Medicine 01/17/21 Welder And Fitter Relationship Specialty Start Date End Date Ellen Crabtree DO [address] [place] [phone] PCP - General Family Medicine 01/17/21 Welder And Fitter Relationship Specialty Start Date End Date Ellen Crabtree DO [address] [place], [place] [phone] PCP - General Family Medicine 01/17/21 Welder And Fitter Relationship Specialty Start Date End Date Ellen Crabtree DO [address] [place], [place] [phone] PCP - General Family Medicine 01/17/21 Welder And Fitter Relationship Specialty Start Date End Date Ellen Crabtree DO [address] [place] [phone] PCP - General Family Medicine 01/17/21 Welder And Fitter Relationship Specialty Start Date End Date Ellen Crabtree DO [address] [place], [place] [phone] PCP - General Family Medicine 01/17/21 Welder And Fitter Relationship Specialty Start Date End Date Ellen Crabtree DO PCP - General Family Medicine 01/17/21 Welder And Fitter Relationship Specialty Start Date End Date Ellen Crabtree DO PCP - General Family Medicine 01/17/21 Welder And Fitter Relationship Specialty Start Date End Date Ellen Crabtree DO PCP - General Family Medicine 01/17/21 Welder And Fitter Relationship Specialty Start Date End Date Ellen Crabtree DO [address] [place], [place] [phone] PCP - General Family Medicine 01/17/21 Team [...] Provider Active Sta rt: December 13, 2024 Vivian Villareral DO Attending Provider Active Sta rt: December 13, 2024 Team Status: Inactive Member Role Status Dates Ellen Crabtree DO Primary Care Provider Active Sta rt: January 30, 2025 End: January 30, 2025 Romel Leonardo MD Attending Provider Active Sta rt: January 30, 2025 End: January 30, 2025 Team Status: Inactive Member Role Status Aneta Crabtree DO Primary Care Provider Active Sta rt: February 15, 2025 End: February 15, 2025 Romel Leonardo MD Attending Provider Active Sta rt: February 15, 2025 End: February 15, 2025 Welder And Fitter Relationship Specialty Start Date End Date Ellen Crabtree DO [address] [place], [place] [phone] PCP - General Family Medicine 01/17/21 Welder And Fitter Relationship Specialty Start Date End Date Ellen Crabtree DO [address] [place] [address] PCP - General Family Medicine 01/17/21 Welder And Fitter Relationship Specialty Start Date End Date Ellen Crabtree DO [address] [place] [address] PCP - General Family Medicine 01/17/21 Welder And Fitter Relationship Specialty Start Date End Date Ellen Crabtree DO [address] [place] [phone] PCP - General Family Medicine 01/17/21 Welder And Fitter Relationship Specialty Start Date End Date Ellen Crabtree DO [address] [place] [phone] PCP - General Family Medicine 01/17/21 Welder And Fitter Relationship Specialty Start Date End Date Ellen Crabtree DO [address] [place] [phone] PCP - General Family Medicine 01/17/21 Team [...] Gonzales MD Admit Provider Active Start: S eptember 2024 Steven Gonzales MD Other Provider Active Start: S eptember 2024 Aleshia Hooks RN Other Provider Active Star t: June 28, 2025 Rose Vincent , ALFONSO Other Provider Active Start : June 28, 2025 Nellie Johnson RN Other Provider Active Star t: June 28, 2025 Kathy Lewis RN Other Provider Active Start: S eptember 2024 Lorraine Valle , ALFONSO Other Provider Active Start: Se ptember 2024 Dara Gonzales , ALFONSO Other Provider Active Start: S eptember 2024 Sandy Carlson MD Other Provider Active Start: June 28, 2025 Tai Richardson , Other Provider Active Start : June 28, 2025 Harvey Pat MD Other Provider Active Start : June 28, 2025 Skinny Jensen , Other Provider Active Start: June 28, 2025 David Logan MD Other Provider Active Start: June 28, 2025 Jacinta Sorensen MD Other Provider Active Start : June 28, 2025 Romel Rojas DO Other Provider Active St art: June 28, 2025 Dillan Rodriguez MD Other Provider Active Start: S eptember 2024 Miryam Bell APRN Other Provider Active Start: June 28, 2025 Lamont Sky MD Other Provider Active Start: June 28, 2025 Sophie Trujillo MD Other Provider Active Start: June 28, 2025 Vandana Kerr MD Other Provider Active Start: June 28, 2025 Romel Arevalo DO Other Provider Active Start: June 28, 2025 Emelina Ojeda MD Other Provider Active Start: 2024 Enrico Hammer MD Other Provider Active Start: Sep 2024 Elli Puckett NP-C Other Provider Active St art: June 28, [...] Active Start: June 28, 2025 Van Orozco , Other Provider Active Start: June 28, 2025 [...] Camacho MD Other Provider Active Start: S ep2024 Steven Brenner MD Other Provider Active Start: June 28, 2025 Dillan Arce MD Other Provider Active Start : June 28, 2025 Jesus Watson MD Other Provider Active Start: S 2024 Adali Tineo APRN Other Provider Active Sta rt: June 28, 2025 Ruel Goncalves APRN Other Provider Active Start: June 28, 2025 Fidelia Tarango RN Other Provider Active Start: 2024 Heriberto Campos MD Attending Provider Active Start: June 28, 2025 Team Status: Active Member Role Status Aneta Crabtree DO Primary Care Provider Active Sta rt: July 05, 2025 Steven Gonzales MD Admit Provider Active Start: S ep2024 Steven Gonzales MD Other Provider Active Start: S ep2024 Aleshia Hooks RN Other Provider Active Star t: July 05, 2025 Rose Vincent , ALFONSO Other Provider Active Start : July 05, 2025 Nellie Johnson , ALFONSO Other Provider Active Star t: July 05, 2025 Kathy Lewis , ALFONSO Other Provider Active Start: S epteer 2024 Lorraine Valle RN Other Provider Active Start: Se ptember 2024 Dara Gonzales RN Other Provider Active Start: S ep2024 Sandy [...] Other Provider Active Start: Jun Elli Puckett NP-C Other Provider Active St art: July 05, [...] Active Start: July 05, 2025 Fidelia Tarango RN Other Provider Active Start: S eptember 2024 Heriberto Campos MD Attending Provider Active Start: July 05, 2025 Team Status: Active Member Role Status Aneta Crabtree DO Primary Care Provider Active Sta rt: July 12, 2025 Steven Gonzales MD Admit Provider Active Start: S eptember 2024 Steven Gonzales MD Attending Provider Active Star t: July 12, 2025 Steven Gonzales MD Other Provider Active Start: S eptember 2024 Aleshia Hooks RN Other Provider Active Star t: July 12, 2025 Rose Vincent , ALFONSO Other Provider Active Start : July 12, 2025 Nellie Johnson , ALFONSO Other Provider Active Star t: July 12, 2025 Kathy Lewis , ALFONSO Other Provider Active Start: S eptember 2024 Lorraine Valle RN Other Provider Active Start: Se ptember 2024 Dara Gonzales RN Other Provider Active Start: S eptember 2024 Sandy Carlson MD Other Provider Active [...] Provider Active Start: Jun Elli Puckett , HUMAN RESOURCES PROJECT MANAGER-C Other Provider Active St art: July 12, [...] Jv Camacho MD Other Provider Active Start: [facility] 2024 Steven Brenner MD Other Provider Active Start: July 12, 2025 Dillan Arce MD Other Provider Active Start : July 12, 2025 Jesus Watson MD Other Provider Active Start: [facility] 2024 Adali Tineo APRN Other Provider Active Sta rt: July 12, 2025 Ruel Goncalves APRN Other Provider Active Start: July 12, 2025 Fidelia Tarango RN Other Provider Active Start: [facility] 2024 Team Status: Active Member Role Status Dates Ellen Crabtree DO Primary Care Provider Active Sta rt: July 18, 2025 Graciela Macias LPN Attending Provider Active Sta rt: July 18, 2025 Team Status: Active Member Role Status Dates Ellen Crabtree DO Primary Care Provider Active Sta rt: July 24, 2025 Fidel Ibarra MD Attending Provider Active St art: July 24, 2025 Ordered Prescriptions (unrec ognized section and content) [...] Chew 0617 (Given - Provider: Lyn Hammond, ALFONSO)0857 (Given - Provider: Malik De La Garza RN) 0518 (Given - Provider: Peace Sol RN)0942 (Given - Provider: Marion hSarma RN) 0533 (Given - Provider: Gladis Lezama [...] Marion Sharma, ALFONSO)1805 (Given - Provider: Marion Sharma, ALFONSO)2219 (Given [...] ALFONSO) 0849 (Given - Provider: Nevaeh Oviedo, ALFONSO) polyethylene glycol (GLYCOLAX) packet 17 g 17 g, Oral, DAILY, First dose on Thu02/07/22 at 1645, Until Discontinued, Post-op 08 (Held - Provider: [...] Lezama RN) 0531 (Given - Provider: Gladis Lezama, ALFONSO)1145 (Given - Provider: Nevaeh Oviedo RN) oxyCODONE-acetaminophen [...] Sol RN)1346 (See Alternative - Provider: Marion Sharma [...] BE BASED ON THE PRIMARY CLINICAL RECORDS. [employer] [facility]. provides no warranty or guarantee of the accuracy or completeness of information in this document.
--- NOTE | 2025-07-27 21:17 | PC.NURSE ---
this patient arrives via ems from home. this patent was on his electric wheelchair exiting his ramp from wheel chair and fell out of his wheelchair( no seat belt on and foot pegs were not down) hitting his head onto the pavement. this patient denies any LOC after this fall. this patient awake and alert, oriented x 4 and complains of a headache, and has a abrasion above his right eye.
[2025-07-27 21:43] VITALS: BP 160/91; O2SAT 98
[2025-07-27] MEDS: MORPHINE SULFATE 4 MG/ML VIAL IM (21:47)
--- NOTE | 2025-07-27 21:58 | PC.NURSE ---
this patient wad repositioned on his left and pillow placed under his buttocks. this patient and his informed that now we are waiting on all of the cts and x-rays. this patient voices no concerns, needs and shows no signs of distress
--- NOTE | 2025-07-27 22:25 | PC.NURSE ---
this patient informed that i am waiting on pharmacy to verify your take home medication, once i have that medication i will return with that and your discharge orders. this patient said ok
[2025-07-27] MEDS: HYDROCODONE/ACET 5-325 MG TABLET 1 TAB PO (22:51)
[2025-07-27 22:52] VITALS: BP 174/96; PULSE 60; O2SAT 98
--- NOTE | 2025-07-27 23:20 | PC.NURSE ---
i gave this patient's verbal and written along with 1 Rx, and 1 tab take home pain medication and she said yes to understanding these discharge orders, Rx, and take home medication. at time of discharge this patient nor voices any concerns, needs and this patient show no signs of distress. this patent was able to standing up with a walker and place himself into his wheelchair
== END 2025-07-27 23:08 | disposition home or self-care (01) ==
PROVIDERS: Emergency Provider Emergency Medicine; PCP Family Medicine
DX: S09.8XXA Other specified injuries of head, initial encounter (principal); S16.1XXA Strain of muscle, fascia and tendon at neck level, initial encounter; S46.911A Strain of unspecified muscle, fascia and tendon at shoulder and upper arm level, right arm, initial encounter; M54.50 Low back pain, unspecified; V00.811A Fall from moving wheelchair (powered), initial encounter; Z87.891 Personal history of nicotine dependence; S00.01XA Abrasion of scalp, initial encounter; G20.A1 Parkinson's disease without dyskinesia, without mention of fluctuations; Z99.3 Dependence on wheelchair; Y92.094 Garage of other non-institutional residence as the place of occurrence of the external cause; G89.29 Other chronic pain
CPT/HCPCS: 70450; 72125; 72131; 73030; 76376; 96372; 99285; J2270; J2405

== ENCOUNTER 2025-08-07 12:20 | Outpatient (REF) | payer MEDICARE, OTHER, SELFPAY ==
[2025-08-07 13:33] LABS: Cholesterol 156 mg/dL (<=200); HDL Cholesterol 42 mg/dL (40-60); Thyroid Stimulating Hormone 0.317 uIU/mL (0.358-3.740); Triglycerides 124 mg/dL (<=150); VLDL CHOLESTEROL 24.8 mg/dL
[2025-08-09 16:24] LABS: Microalbum Creatinine Ratio Ur 123.1 mg/g (0.0-29.9)
== END 2025-08-07 12:21 | disposition home or self-care (01) ==
LOC: LAB 12:20
PROVIDERS: PCP Family Medicine; Visit Provider Family Medicine
DX: L89.313 Pressure ulcer of right buttock, stage 3 (principal); E11.59 Type 2 diabetes mellitus with other circulatory complications; I95.9 Hypotension, unspecified; N31.9 Neuromuscular dysfunction of bladder, unspecified; G20.B1 Parkinson's disease with dyskinesia, without mention of fluctuations; E78.00 Pure hypercholesterolemia, unspecified
CPT/HCPCS: 36415; 80061; 82043; 82570; 83036; 84443

== ENCOUNTER 2025-08-09 11:30 | Outpatient (REF) | payer MEDICARE, OTHER, SELFPAY ==
--- OUTSIDE RECORDS SUMMARY | 2025-07-26 10:00 | XMS_ITS | Encounter Summary ---
Author Organization [facility] tem Address [id number] [address] [place] [address] Care Team Providers Care Assembling Fabricator Name Role Phone Jaden Crabtree DO Primary Care Provider [phone] Reason for Referral * Cardiology (Routine) - AuthorizedSpecialtyDiagnoses / ProceduresReferred By ContactReferred To Contact Diagnoses QT prolongation Procedures ECG 12 lead Reyna Banks MD [address] [place] [address] [address] [place] [address] Phone: tel: fax: Referral IDStatusReasonStart DateExpiration DateVisits RequestedVisits [id number]/8/202510/8/202611 Reason for Visit * JfwvylBwbjikhxKyhkqm-iw5-2 month f.u Encounter Details DateTypeDepartmentCare Team (Latest Contact Info)Ttzkynnidsf91/08/2025 10:00 AM EDTOffice Visit 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); QT prolongation Social History Tobacco UseTypesPacks/DayYears UsedDateSmoking Tobacco: FormerCigarettes Smokeless Tobacco: NeverAlcohol UseStandard Drinks/WeekCommentsNot Currently0 (1 standard drink = 0.6 oz pure alcohol)PHQ-2AnswerDate RecordedTotal Score21 08/23/2024hildcareAnswerDate ArypnkgbNyxgrfexdLjzaxyo62/21/2021mploymentAnswer Date WrlscfcdBklntcxmpsUqbwhhr10/21/2021Hunger ScreeningAnswerDate Recorded Within the past 12 months we worried whether our food would run out before we got money to buy more.Never True03/16/2025Within the past 12 months the food we bought just didn't last and we didn't have money to get more.Never True 03/16/2025Purpose - LifeAnswerDate RecordedPurpose and direction in lifeUnknown 11/08/2020ex and Gender InformationValueDate RecordedSex Assigned at BirthNot on fileLegal PbyNpjj3811/08/2020 10:25 AM ESTGender IdentityNot on fileSexual OrientationNot on filedocumented as of this encounter Last Filed Vital Signs Vital SignReadingTime TakenCommentsBlood Rzbyomtr92/5710 10:45 AM EDT Dnlhn947707/26/2025 10:45 AM EDTTemperature--Respiratory Hobi7943 9:41 AM EDTOxygen Saturation--Inhaled Oxygen Concentration--Egqjnv388.6 kg (235 lb) 07/26/2025 9:41 AM FFNOzxcjf780.8 cm (5' 10 )07/26/2025 9:41 AM EDTBody Mass Index33.7207/26/2025 9:41 AM EDTdocumented in this encounter Patient Instructions * Patient Instructions* Reyna Banks MD - 07/26/2025 10:00 AM EDT Complete EKG in 1-2 weeks Start seroquel 25mg half tab nightly for 1 week, then may increase to full tab after that Check with your insurance for what area psychiatrists are covered by your insurance, notify Dr. Banks so she can fax the referral to them documented in this encounter Progress Notes * Reyna Banks MD - 07/26/2025 10:00 AM EDT Images from the original note were not included. [address] [facility] [address] [facility] [id number] Patient: Jamarcus García Sr. Date of : 1960 Encounter Date: 07/26/2025 Patient Care Team: Jaden Crabtree DO as PCP - General (Family Medicine) History of Present Illness: Jamarcus García is a 64 year old male, established with Dr. Bowden, seeing me for the first time today. Has a diagnosis of Parkinson's disease and dysautonomia. In March I started him on mestinon and titrated up to 60mg TID. This is helping his BPs. He had holdparameters initially, but has since not had issues with very high readings and so takes florinef, mestinon, and midodrine scheduled. Since his last visit he saw Dr. Espinoza and had pacemaker placed fordysautonomia and it has been helpful. He is following up with their office for this. He completed swallow study since his last visit which showed penetration with thin liquids which corrected with chin tuck. He is in ST now. He has significant arthritis. He had to stop his diclofenac after recent GI bleed. He has a lot of joint and back pain now as a result. He has a history of migraines since 2022 after a fall with head injury and LOC. Migraines are bad as well. He notes associated nausea/vomiting, photophobia, feels his tongue is thick. Headache is bifrontal 10/. These headaches occur 2- 3 times per week and last all day. He takes imitrex 50mg for migraine which helps some of the time. When he takes a second dose it usually eases the headache. He takes topamax 100mg BID (but he states he takes it for tremor). Also on lyrica 300mg BID (for neuropathy) and cymbalta 60mg (for spasms). He tried fioricet through PCP, but is no longer on it. Dr. Bowden has been prescribing tramadol for headaches and arthritic pain as well which he is still on. He cannot have MRIs due to spinal stimulator which is not compatible. He completed CT head 04/02/25 whichshowed no acute findings. He is going to see Dr. Martin for this next month. Of note he has past history of lumbar stenosis s/p surgery 2021, DMII, COPD. He also has a suprapubic catheter which was needed after lumbar surgery. He has chronic back pain. Diagnosis: PD 2019 Tremor: controlled on sinemet Gait: motorized wheel chair Falls: denies On/off: tremor first thing in the morning, occasional other times per day Dyskinesias: denies Voice: yes, quietness of voice Swallowing: OK Mood: he has a short fuse, wants to be alone and does not want to interact with people for at least1 year. On cymbalta 60mg and venlafaxine 150mg daily (from PCP) Impulsive behaviors: denies Hallucinations: sees shadows at night every night Memory: intact, no concerns Sleep:interrupted overnight/poor sleep Lightheadedness: feels things are moving when he [...] 12pm, 10mg 2pm, 10mg 6pm. Florinef 0.1mg daily, pyridostigmine 60mg 8am/2pm/6pm. Past medications tried: nuplazid (allergy) Allergies: Celecoxib, Erythromycin base, Moxifloxacin, Clonazepam, Levofloxacin, [...] 14 2 PTSD: No data to display Phelps: No data to display TONIA-10: No data to display Past Medical, Family, Surgical, and Social History Update: The following portions of the patient's history were reviewed and updated as appropriate: allergies, current medications, past family history, past medical history, past social history, past surgicalhistory and problem list. Past Medical History: Diagnosis Date Diabetes mellitus ([place]) Diabetes mellitus type 2, controlled ([place]) HL (hearing loss) Hypertension Intra-abdominal bleeding Kidney stones Migraine Parkinson's disease (CMS-HCC) Spinal stenosis History reviewed. No pertinent family history. Past Surgical History: Procedure Laterality Date ABDOMINAL SURGERY BACK SURGERY cervical. plates on 5,6, 7. and lumbar surgery. multiple surgeries and revisions GASTRIC BYPASS due to issues with esophagous HAND SURGERY INSERT / REPLACE / REMOVE PACEMAKER 07/06/2025 KIDNEY STONE SURGERY multiple PERIPHERALLY INSERTED CENTRAL CATHETER INSERTION PROSTATE SURGERY REPLACEMENT TOTAL KNEE BILATERAL SHOULDER [...] DOSE. TAKE ALONG WITH SINEMET CR. 180 awccql43 diclofenac (VOLTAREN) 75 mg EC tablet Take [...] tablet 3 midodrine (PROAMATINE) 5 mg tablet Check blood pressure at 8 am, 12 pm and 6 pm. If top number is 110 or lower take 3 tablets (15 mg). If top number 111-149 take 2 tablets (10 mg) if top number is 150 or higher DO NOT TAKE. 810 tablet 3 montelukast (SINGULAIR) 10 mg tablet [...] 1 capsule (300 mg total) before bedtime. pyridostigmine (MESTINON) 60 mg tablet Take half to 1 tab PO TID as directed 90 tablet 5 sulfamethoxazole-trimethoprim (BACTRIM DS) 800-160 mg per tablet [...] needed. (Patient not taking: Reported on 08/23/2024) multivitamin capsule Take 1 capsule by mouth in the morning. (Patient not taking: Reported on 08/23/2024) ondansetron (ZOFRAN) 4 mg tablet Take 2 tablets (8 mg total) by mouth every 6 (six) hours as neededfor nausea or vomiting. (Patient not taking: Reported on 08/23/2024) 20 tablet 0 No current facility-administered medications for this visit. (All medications reviewed and updated by provider since last office visit or hospitalization) Tobacco History: Social History Tobacco Use Smoking Status Former Types: Cigarettes Smokeless Tobacco Never (If patient a smoker, smoking cessation counseling offered) Social History: Social History Substance and Sexual Activity Alcohol Use Not Currently Review of Systems: Review of Systems Neurological: Positive for tremors and light-headedness. Physical Exam: Vitals: Vitals: 07/26/25 0941 BP: (!) 86/61 BP Site: Right Arm BP Postition: Sitting BP CUFF SIZE: L (13-17 inches) Pulse: 76 Resp: 18 Weight: 106.6 kg (235 lb) Height: 177.8 cm (5' 10 ) Neurological Physical Exam: Physical Exam: Mental Status: [...] heel to pollack Wheel chair bound. Tremor: RUE intermittent rest tremor. Assessment and Plan: There are no diagnoses linked to this encounter. 64 year old male with diagnosis of parkinson's disease with severe orthostatic hypotension as well as hypertension. Differential: Parkinson's Disease dysautonomia, however dysautonomia started very early in the course for typicalPD. Multiple System Atrophy is a strong consideration given severe, early onset dysautonomia and cerebellar features on exam, however he reports a strong levodopa response. Diabetic dysautonomia alsopossible. He also has chronic migraine refractory to many medications. Plan to see headache specialist for this. He has depression, not controlled with cymbalta and venlafaxine. He also has hallucinations, likelysecondary to Parkinson's disease. Plan to start seroquel 12.5mg HS, may increase to 25mg HS after 1-2 weeks. Monitor QT in 2 weeks on EKG. And referral to psychiatry. Note he is on multiple serotonergic medications, prescribed by other physicians (tramadol, effexor, cymbalta), will monitor for signs of serotonin syndrome. The patients medications were reviewed and confirmed that they are not prescribed any contraindicated dopamine blocking agent. Follow with Dr. Espinoza for dysautonomia Follow with Dr. Martin for headache Patient to identify covered psychiatrist in his area, then will refer for depression Start seroquel 12.5mg for 1-2 weeks, then increase to 25mg is hallucinations are not improved EKG in 2 weeks Talk to PCP about joint pain/arthritic treatment Follow-up: 3 months REYNA BANKS MD This note was created with the assistance of a speech recognition program. While intending to generate a timely document that accurately reflects the content of the visit, no guarantee can be provided that every grammatical or spelling mistake has been or will be identified or corrected. Thank you for your understanding. documented in this encounter Plan of Treatment DateTypeDepartmentCare Team (Latest Contact Info)Mnheigzenfw66/25/2025 11:00 AM ESTOffice Visit [facility], A Department of [address] [place] [phone] Tony Martin MD [address] [place] [address] [address] [place] [address] 11/30/2025 11:00 AM ESTOffice Visit [facility], A Department of [address] [place] [phone] Reyna Banks MD [address] [place] [address] [address] [place] [address] NameTypePriorityAssociated DiagnosesOrder ScheduleECG 12 leadECGRoutine QT prolongation Expected: 08/02/2025 (Approximate), Expires: 07/26/2026documented as of this encounter Goals GoalPatient Goal TypeAssociated ProblemsRecent ProgressPatient-Stated?Author Discharge home Skylar Chen, RN Note: Evaluation of progress towards goal: Plan to return home with supportive , after short acute inpatient rehabilitation, for post acute care. 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
--- OUTSIDE RECORDS SUMMARY | 2025-08-09 11:39 | XMS_ITS ---
Author Organization [facility] Address [address] [place] [address] Care Team Providers Care Near Eastern Archaeology Lecturer Name Role Phone Jaden Crabtree Primary Care Provider [phone] Active Problems Patient Care Coordination No te [...] stenosis s/p multiple L2-S1 laminectomies and spinal fusionsurgeries (last 02/2022), BPH, GERD, T2DM, who was admitted to [facility] on 11/20 from the ED for syncope and hypotension. His hypotension was thought to be r/t autonomic dysfunction 2/2 PD and treated with several boluses of IVF. He was found to be COVID positive and started on remdesivir. On 11/26 AMET wascalled for worsening hypotension and new O2 requirement of 2L. His lactate was elevated and patientbecame more hypoxic requiring 6L NC. Despite multiple IVF boluses his hypotension persisted and he w as started on vasopressors and transferred to MICU for septic shock secondary to Klebsiella (enterobacter) bacteremia likely 2/2 urinary source. No longer requiring pressors as of (11/27 @ approx 2130). Significant New Events Past 24: Accepted for transfer to [facility], however had episode of bradycardia to30s while sleeping. Improved to 40s when awakened. Otherwise hemodynamically stable. Remained in ICU to monitor overnight. A/P of Major Active Problems: #Acute Hypoxemic Respiratory Failure #COVID-19 Infection CXR: pulmonary vascular congestion without overt edema, hiatal hernia S/p Remdesivir 11/21-11/23, 11/26-11/27 S/p Decadron 11/26-11/30 Plan: - Continue supplemental O2 with NC, wean for SpO2> 94% ?? #Klebsiella Bacteremia Likely urinary source Blood Cultures (11/26) (+) Klebsiella UA: Turbid, 500 Leuk/uL, > 25/HPF WBCs, Many Bacteria Urine cx polymicrobial, LFT's WNL S/p zosyn (11/26-11/27) Off pressors since 2100 (11/27) Plan: - Continue with Cefipime (11/27- ) for a 7 day course (to end 12/03) #Sinus Bradycardia EKG with sinus bradycardia, HR 45 Presumed 2/2 medication (midodrine) Patient remains hemodynamically stable Plan: - daily EKG - Restart midodrine 15mg AM, 10mg noon, 5mg PM - continue to monitor hemodynamics #Parkinson's Disease c/b dysautonomia #Depression #Orthostatic Hypotension #Failure to Thrive Plan: - Continue Sinemet - Neurology signed off - Avoid dopaminergic blocking meds - Psych consulted, appreciate recs - 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 #LLE Swelling Possibly associated with fluid, however, net negative for past 24 hours; will r/o DVT Plan: - pending b/l LE duplex US #HLD Plan: - Continue statin, ezetimibe ?? #T2DM Assessment: Plan: - SSI - Accucheck AC/HS ?? #Decubitus ulcer, stage 2 coccyx POA #Left [...] Barriers to transfer out of MICU: None ProblemNoted DateDiagnosed DateHospice care3Pressure injury of coccygeal region, stage Irritant contact dermatitis due to fecal fuuefzhzrtjj87/06/2023Wound eschar of foot11/24/2022 Overview (11/24/2022): Right and left toes Pressure injury of left foot, biwdvkpfaoq37/06/2023 Overview (11/24/2022): Lateral foot Severe protein-calorie cfcjiniafseu07/03/2023At risk for oavxgtbu64/03/2023 COVID-19 virus iwjntdfzb87/02/2023Generalized gvlcbyrs98/02/3936Ywfl32/02/2023 History of fusion of cervical spine1Right foot drop08/29/2020Falls jtywbroxfy03/11/2020Multifactorial gait /11/2020Spinal stenosis of lumbar liebmn5508/29/2020Orthostatic kihjhraqool89/11/2020Near joljbrp4308/29/2020 Spinal stenosis of cervical eznzlz8508/29/2020Osteoarthritis of right hip 05/03/2020Acute cystitis without /10/2020 Assessment & Plan (04/27/2020 12:47 PM EDT): Assessment: per Urine Culture result. Pt. treated per susceptibility report and notified. Pt. reports he has tolerated Bactrim before ( 10/2019) Tobacco use04/24/2020 Assessment & Plan (04/24/2020 12:23 PM EDT): Assessment: 60 pack years Currently 1/2 pack day since 01/2020 Cessation with strategies encouraged. Megaloblastic anemia due to vitamin B12 skzoufhfxy40/13/2020Osteoarthritis of left hip11/08/2019Open wound of left heel11/08/2019PD (Parkinson's disease) 04/13/2019 Assessment & Plan (04/24/2020 12:22 PM EDT): Assessment: Managed with med Monitored by Neurology Stable at baseline per Pt. report Assessment & Plan (10/18/2019 12:32 PM EST): Assessment: Sinemet 4 times a day to use morning of surgery Qbmoidfmz83/26/2019Psychosis due to Parkinson's bbxyjsd9204/13/2019MGUS (monoclonal gammopathy of unknown significance)09/15/2018Spinal cord stimulator njfdjf7509/07/2018 Assessment & Plan (04/24/2020 12:25 PM EDT): Assessment: for LBP generator in right hip Aware to bring remote on DOS Assessment & Plan (10/18/2019 12:34 PM EST): Assessment: Spinal cord stimulator in place to bring remote day of surgery Complete tear of right rotator cuff08/02/2018Iron deficiency anemia secondary to inadequate dietary iron izlcgv0406/16/2018Multilevel spine pain06/02/2018Nicotine use disorder, F17. Assessment & Plan (10/18/2019 12:32 PM EST): Assessment: Current Smoker Obesity, Class I, BMI 30-34.9003/17/2018CRPS (complex regional pain syndrome type I)03/16/2018Status post replacement of left shoulder joint02/08/2018Shoulder gxqxbatlj06/13/0033Hmboeh17/19/2018Diabetes /19/2018 Assessment & Plan (10/18/2019 12:33 PM EST): Assessment: stable on oral medication Hemoglobin A1C (%) Date Value 05/18/2018 5.9 06/17/2017 5.3 Essential uudixfhsevvi45/19/2018 Assessment & Plan (04/24/2020 12:15 PM EDT): Assessment: Medication for Control. Date: BP: 04/24/2020 115/80 Stable. Ihqgytqbwytgwf13/ Assessment & Plan (10/18/2019 12:32 PM EST): Assessment: stable on medication Essential hocngx1010/27/2017 Assessment & Plan (04/24/2020 12:14 PM EDT): Assessment: right hand Assessment & Plan (10/18/2019 12:32 PM EST): Assessment: tremors in right hand Glenohumeral arthritis, left10/26/2017OA (osteoarthritis) of knee07/01/2017 Primary osteoarthritis of right knee05/20/2017 Overview (05/20/2017): Added automatically from request for surgery [id number] Arthritis of knee04/27/2017Type 2 diabetes mellitus without complication, without long-term current use of yxvqiaa4204/15/2017 Assessment & Plan (04/24/2020 12:17 PM EDT): Assessment: Managed with oral med s/p gastric bypass Hemoglobin A1C (%) Date Value 10/18/2019 5.7 Chronic pain pfycyylp14/28/2017 Assessment & Plan (04/24/2020 12:14 PM EDT): Assessment: lower back pain s/p SCS 02/2018 Monitored by Pain Management ( 04/03/2020) COPD with chronic ybmeiqboyp34/28/2017 Assessment & Plan (04/24/2020 12:16 PM EDT): Assessment: Managed with inhalers No supplemental oxygen use RA 04/24/20 1148 SpO2: 97% Stable. Assessment & Plan (10/18/2019 12:33 PM EST): Assessment: Symbicort twice a day and Albuterol as needed Primary osteoarthritis of left knee01/28/2017Postlaminectomy npjpoxgz61/12/2016 Hypertrophy of prostate with urinary obstruction and other lower urinary tract symptoms (LUTS)08/12/20107216Jcltfkecjby47/22/2010Frequency of xxkdjecge73/08/2010 Slow urinary twmzom0303/26/2010Impotence of organic gnjfca5110/08/2007Malignant neoplasm of skin of lip05/11/2007 Assessment & Plan (10/18/2019 12:33 PM EST): Assessment: s/p removal Psychosexual dysfunction, csosjbfqcra19/13/2006Rotator cuff syndrome of shoulder and allied odweewyjx31/22/2005Spinal stenosis, lumbar region, without neurogenic lljotvxilewl62/26/2004Displacement of cervical intervertebral disc without hhvungpipm10/30/2004Brachial neuritis or radiculitis NOS04/17/2004Spinal stenosis in cervical jqbppy9103/06/2004Displacement of thoracic intervertebral disc without isaowflhpv46/19/2004SPRAIN OF NECK ()03/06/2004Unspecified sleep apnea Overview (04/24/2020): Last us 2003, pt was 380 lbs at that time Assessment & Plan (04/24/2020 12:24 PM EDT): Assessment: Uses CPAP at home Current Treatment and Therapy Plans No current plan information found. Past Treatment and Therapy Plans Resolved Problems ProblemNoted DateDiagnosed DateResolved DateUlcerative cmahyr8712/07/2017 07/21/2019Glenohumeral tsvuzrnbi71Urgency of urination SPRAIN OF NECK ()Brachial neuritis or lwdbnhlbnlc11Carpal tunnel xwfftsci34
--- OUTSIDE RECORDS SUMMARY | 2025-08-09 11:39 | XMS_ITS | Clinical Summary ---
Author Organization [facility] [facility] Address [id number] [address] [place] [address] Care Team Providers Care Business Office Manager Name Role Phone Jaden Crabtree DO Primary Care Provider [phone] Allergies Active AllergyReactionsCriticalityNoted DateCommentsCelecoxibHives,RashHigh 06/04/2017 Other reaction(s): GI Upset, Unknown UjeeqbnbklPnxkxksZtsdie18/17/2206Nysmpriqovra09/01/2021 Other reaction(s): Unknown Erythromycin BaseHives,Shortness Of FmpfqbXfev36/19/2004LevofloxacinHivesMedium 01/29/2010 Other reaction(s): Unknown MoxifloxacinHives,Itching,Rash,Shortness Of XfexqdHwxs81/02/2006Pimavanserin Hives08/23/2020 Medications MedicationSigDispense QuantityRefillsLast FilledStart DateEnd DateStatus multivitamin capsule Take 1 capsule by mouth in the morning.Active acetaminophen (TYLENOL) 325 mg tablet Take 2 tablets (650 mg total) by mouth every 6 (six) hours as needed for pain. Active betamethasone, augmented, (DIPROLENE) 0.05 % cream Apply 1 application topically daily. 30 g 02/19/2021ctive Additional Information Patient not taking.Reported on 07/26/2025 ondansetron (ZOFRAN) 4 mg tablet Take 2 tablets (8 mg total) by mouth every 6 (six) hours as needed for nausea or vomiting. 20 tablet 02/19/2021ctive Additional Information Patient not taking.Reported on 07/26/2025 acarbose (PRECOSE) 25 mg tablet Take 1 tablet (25 mg total) by mouth 3 (three) times a day. 90 tablet ctive Additional Information Patient not taking.Reported on 07/26/2025 atorvastatin (LIPITOR) 10 mg tablet Take 1 tablet (10 mg total) by mouth daily. 30 tablet ctive ezetimibe (ZETIA) 10 mg tablet Take 1 tablet (10 mg total) by mouth daily. 30 tablet 02/19/2021ctive topiramate (TOPAMAX) 100 mg tablet Take 1 tablet (100 mg total) by mouth 2 (two) times a day. 60 tablet ctive docusate sodium (COLACE) 100 mg capsule Take 1 capsule (100 mg total) by mouth daily as needed.06/27/2021ctive montelukast (SINGULAIR) 10 mg tablet Take 1 tablet (10 mg total) by mouth in the morning.12/06/2022ctive DULoxetine (CYMBALTA) 60 mg capsule Take 1 capsule (60 mg total) by mouth nightly.01/06/2024ctive diclofenac (VOLTAREN) 75 mg EC tablet Take 1 tablet (75 mg total) by mouth in the morning and 1 tablet (75 mg total) before bedtime.01/06/2024ctive pregabalin (LYRICA) 300 mg capsule Take 1 capsule (300 mg total) by mouth in the morning and 1 capsule (300 mg total) before bedtime.01/06/2024ctive potassium citrate (UROCIT-K) 15 mEq tablet extended release Take 1 tablet (15 mEq total) by mouth in the morning and 1 tablet (15 mEq total) before bedtime.01/06/2024ctive tolterodine LA (DETROL LA) 4 mg 24 hr capsule Take 1 capsule (4 mg total) by mouth in the morning.Active fludrocortisone (FLORINEF) 0.1 mg tablet Indications: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 Taking Thursday, Thursday, Thursday.09/05/2024Active carbidopa-levodopa (SINEMET CR) 25-100 mg per CR tablet Indications:Parkinson's disease ([facility])TAKE 1 TABLET BY MOUTH AT 2AM, 2 TABLETS AT 6AM AND 10AM, 1 TABLET AT 2PM, 6PM, AND 10PM. TAKE WITHSINEMET IR 240 tablet 4Active SUMAtriptan (IMITREX) 50 mg tablet Indications:Migraine without aura and without status migrainosus, not intractableTake 1 tablet (50 mg total) by mouth once as needed for migraine for up to 180 doses. May repeat in2 hours if unresolved. Do not exceed 200 mg in 24 hours. 15 tablet 4Active carbidopa-levodopa (SINEMET) 25-100 mg per tablet Indications:Parkinson's disease ([facility])TAKE 2 TABLETS BY MOUTH AT 6AM AND 10AM, 1 TAB AT 2PM AND 6PM. AVOID PROTEIN 1 HOUR BEFORE OR AFTEREACH DOSE. TAKE ALONG WITH SINEMET CR. 180 tablet 5Active midodrine (PROAMATINE) 5 mg tablet Indications:OrthostasisCheck blood pressure at 8 am, 12 pm and 6 pm. If top number is 110 or lower take 3 tablets (15 mg).If top number 111-149 take 2 tablets (10 mg) if top number is 150 or higher DO NOT TAKE. 810 tablet 5Active pyridostigmine (MESTINON) 60 mg tablet Indications:Dysautonomia orthostatic hypotension syndromeTake half to 1 tab PO TID as directed 90 tablet 5Active traMADoL (ULTRAM) 50 mg tablet Indications:Spinal stenosis of lumbar region with neurogenic claudicationTake 1 tablet (50 mg total) by mouth every 6 (six) hours as needed for pain. 120 tablet 5Active venlafaxine 150 MG tablet extended release 24hr 24 hr tablet Take 1 tablet (150 mg total) by mouth daily with breakfast.Active QUEtiapine (SEROquel) 25 mg tablet Indications:Psychosis due to Parkinson's disease ([facility])Take half tab nightly for 1 week, then may increase to full tab 90 tablet 3105Active acetaminophen-caffeine (EXCEDRIN TENSION HEADACHE) 500-65 mg tablet Take 2 tablets by mouth every 6 (six) hours as needed (Migraine). 90 tablet 110/05/2025Discontinued Active Problems ProblemNoted DateDiagnosed DateOpen wound of left great toe03/16/2025 Overview (03/16/2025): PVR with toe pressures Assessment & Plan (03/16/2025 11:16 AM EDT): PVR with toe pressure Encounter for abdominal aortic aneurysm (AAA) gkaulwaqn60/11/2024 Assessment & Plan (03/16/2025 11:16 AM EDT): No abdominal aortic aneurysms on screening duplex ultrasound. Assessment & Plan (01/28/2024 9:40 AM EDT): AAA duplex US Critical limb ischemia of both lower extremities with jybikcoa33/11/2024 Overview (01/28/2024): Bilateral toe wounds nonhealing, no [...] wounds nonhealing, no PVR or testing Generalized ooaljzcw76/02/2023Shy-Drager frxyfrhk17/28/2021Walking difficulty due to ankle and foot02/08/2021Type 2 diabetes mellitus with circulatory disorder, without long-term current use of stulsix58/23/2021Parkinson disease 1Parkinson's gvsnyds4202/03/2021Falls evnxuxixwc91/11/2020Near syncope 08/29/20202217Rdmnhdxvcbp15/11/2020Right foot drop08/29/2020Multifactorial gait /11/2020Osteoarthritis of right hip05/03/2020Tobacco use04/24/2020 Overview (10/01/2021): Last Assessment & Plan: Assessment: 60 pack years Currently 1/2 pack day since 01/2020 Cessation with strategies encouraged. Megaloblastic anemia due to vitamin B12 /13/2020Open wound of left heel11/08/20195832Egvwpvtld72/26/2019MGUS (monoclonal gammopathy of unknown significance)09/15/2018Spinal cord stimulator onimcb3209/07/2018 Overview (10/01/2021): Last Assessment & Plan: Assessment: for LBP generator in right hip Aware to bring remote on DOS Complete tear of right rotator cuff08/02/2018Iron deficiency anemia secondary to inadequate dietary iron ftptig1906/16/2018Multilevel spine pain06/02/2018Obesity, Class I, BMI 30-34.9003/17/2018CRPS (complex regional pain syndrome type I) 03/16/2018Status post replacement of left shoulder joint02/08/2018Asthma 12/07/2017Essential qehonminlcpo08/19/2018 Overview (10/01/2021): Last Assessment & Plan: Assessment: Medication for Control. Date: BP: 04/24/2020 115/80 Stable. Yovtjzzrljvlcf02/19/2018 Overview (10/01/2021): Last Assessment & Plan: Assessment: stable on medication Diabetes snuhiebh76/19/2018 Overview (10/01/2021): Last Assessment & Plan: Assessment: stable on oral medication Hemoglobin A1C (%) Date Value 05/18/2018 5.9 06/17/2017 5.3 Arthritis of knee04/27/2017Chronic pain /28/2017 Overview (10/01/2021): Last Assessment & Plan: Assessment: lower back pain s/p SCS 02/2018 Monitored by Pain Management ( 04/03/2020) COPD with chronic qmcjvyjtrh39/28/2017 Overview (10/01/2021): Last Assessment & Plan: Assessment: Managed with inhalers No supplemental oxygen use RA 04/24/20 1148 SpO2: 97% Stable. Postlaminectomy syndrome of lumbar ztssry8406/30/2016Hypertrophy of prostate with urinary obstruction and other lower urinary tract symptoms (LUTS)08/12/2010 Mnmxezrawig31/22/2010Frequency of vycababku86/08/2010ED (erectile dysfunction) of organic idnpfg6810/08/2007Malignant neoplasm of skin of lip05/11/2007 Overview (10/01/2021): Last Assessment & Plan: Assessment: s/p removal Urinary ansosgv1707/31/2006Rotator cuff syndrome of shoulder and allied disorders 12/10/2004Spinal stenosis of lumbar zmvgdt5808/13/2004Brachial neuritis or ofjadovxjxc67/30/2004Displacement of cervical intervertebral disc04/17/2004 Displacement of thoracic intervertebral disc without efgvgzlzdc37/19/2004Spinal stenosis of cervical myjqxa2803/06/2004 Encounters DateTypeDepartmentCare QcmwFagznwhztye34/08/2025 10:00 AM EDTOffice Visit [facility] Department of [address] [place] [address] Lyn Lawton MD Parkinson's disease without dyskinesia or fluctuating manifestations (CMS-HCC) (Primary Dx); Dysautonomia orthostatic hypotension syndrome; Psychosis due to Parkinson's disease (CMS-HCC); QT pedagnbyspeq10/08/4105Gbyqsq30/25/2025[facility]ill [facility] [place] [address] Andrés Bowden MD Spinal stenosis of lumbar region with neurogenic mngzvnzmtkju80/19/2025Telephone [facility] Department of [facility] [address] [facility] [address] [place] [address] Jesus Manuel Eliane New Patientfrom Last 3 Months Immunizations ImmunizationAdministration DatesNext ZvaC0R3 Inj Preservative Free08/24/2009 Hepatitis B1,01/27/2002Influenza High Dose Preservative Free IM 08/24/2019,08/12/2016Influenza, Injectable, Jfrcapmmknjz74/29/2020,07/07/2018 Influenza, Injectable, quadrivalent (PF)07/01/2017,07/23/2015Influenza, Tghsltkpewp30/27/2010Pneumococcal Conjugate 13-Zasiwl3211/15/2018Pneumococcal Nfblmroweyzisy28/26/7651Sste02/28/2019,10/22/2015Zoster Vaccine Recombinant 01/19/2019 Social History Tobacco UseTypesPacks/DayYears UsedDateSmoking Tobacco: FormerCigarettes Smokeless Tobacco: Never Tobacco Cessation:Counseling Given: Not Answered Alcohol UseStandard Drinks/WeekCommentsNot Currently0 (1 standard drink = 0.6 oz pure alcohol)PHQ-2AnswerDate RecordedTotal Cgqbt7285/05/2024ChildcareAnswerDate OqjyrqelOgdizigsnOfbwvcp57/21/2021mploymentAnswerDate RecordedEmploymentUnknown 11/08/2020Hunger ScreeningAnswerDate RecordedWithin the past 12 months we worried whether our food would run out before we got money to buy more.Never True03/16/2025Within the past 12 months the food we bought just didn't last and we didn't have money to get more.Never True03/16/2025Purpose - LifeAnswerDate RecordedPurpose and direction in kqsbQggeflk55/21/2021ex and Gender Information ValueDate RecordedSex Assigned at BirthNot on fileLegal IrmSpxy2311/08/2020 10:25 AM ESTGender IdentityNot on fileSexual OrientationNot on file Last Filed Vital Signs Vital SignReadingTime TakenCommentsBlood Klsmyshb63/5710 10:45 AM EDT Puqyv752507/26/2025 10:45 AM YTWHnacqswcaun43.4 ??C (97.6 ??F)03/16/2025 9:27 AM EDTRespiratory Tfjz4606 9:41 AM EDTOxygen Vyjbhuocgr76%03/16/2025 9:27 AM EDTInhaled Oxygen Concentration--Qsvaou322.6 kg (235 lb)07/26/2025 9:41 AM BATYcftig699.8 cm (5' 10 )07/26/2025 9:41 AM EDTBody Mass Index33.7207/26/2025 9:41 AM EDT Plan of Treatment DateTypeDepartmentCare Team (Latest Contact Info)Ldoilksezih07/25/2025 11:00 AM ESTOffice Visit [facility] Department of [address] [place] [phone] Tony Martin MD [address] [place] [address] [address] [place] [address] 11/30/2025 11:00 AM ESTOffice Visit [facility] Department of [address] [place] [phone] Lyn Lawton MD [address] [place] [address] [address] [place] [address] Health MaintenanceDue DateLast DoneCommentsDiabetic Ophthalmology Exam1958 Statin Use: Gmqjeovkydeyxh1958Statin Use: Qhdmjiee1958Diabetic Foot Exam1976Zoster (Shingles) Vaccine (2 of 2)Fall Risk Rdbodwpce16/25/2023OVID-19 Vaccine ( season), 01/09/2021, 12/13/2020Influenza Azicpcy60/01/265960/12/2024, 11/10/2023, 09/18/2022, Additional history existsAdult BMI Follow Up Plan08/23/2025 08/23/2024epression Trrhkayff87/05/158619/4Adult BMI Fnsdturhs90/08/2026 07/26/2025Tobacco Yhvwndiyc10DTaP,Tdap and Td Vaccines (3 - Td or Tdap)/, 10/22/2015Abdominal Aortic Aneurysm (AAA) Screen Trljhqokf67/11/2024, 12/01/2022, 11/26/2022 Goals GoalPatient Goal TypeAssociated ProblemsRecent ProgressPatient-Stated?Author Discharge home Skylar Chen, ALFONSO Note: Evaluation of progress towards goal: Plan to return home with supportive , after short acute inpatient rehabilitation, for post acute care. To get my medications adjusted and get stronger Sally Ruelas RN Note: Evaluation of progress towards goal: Participating in care and rehab Medical Devices ImplantedTypeAreaManufacturerDevice IdentifierShelf Expiration DateModel / Serial / LotSpinal Stimulator Insurance Advance Directives * Full Code (Latest Code Status on File) Date ActivatedDate InactivatedComments02/07/2021 1:34 PM02/19/2021 4:48 PM * Full Code Date ActivatedDate InactivatedComments02/03/2021 2:46 PM02/07/2021 1:08 PM Care Teams Team MemberRelationshipSpecialtyStart DateEnd Date Jaden Crabtree DO [address] [place] [address] PCP - GeneralFamily Medicine01/17/21
--- OUTSIDE RECORDS SUMMARY | 2025-08-09 11:39 | XMS_ITS | Clinical Summary ---
Author Organization [facility] Address [address] [place] [id number] Care Team Providers Care [employer] Supervisor Name Role Phone Leyda Jaden Hyman Primary Care Provider [phone] Allergies Active AllergyReactionsCriticalityNoted DateCommentsMoxifloxacin HclRash,Hives, Itching,Shortness of TfwayyIcvmby44/02/2006CelecoxibRash,Hives,GI UpsetHigh 06/04/2017Erythromycin BaseHives,Shortness of MgmsqxQnux43/19/2004Clonazepam OvwgpoiGixhyc22/17/0036ConvrowskyzfFdqjvVsvgya18/13/2010PimavanserinHives 08/23/2020 Medications MedicationSigDispense QuantityRefillsLast FilledStart DateEnd DateStatus Albuterol Sulfate 1.25 mg/3 mL INHALATION nebulizer solution Use 1 Ampule via nebulizer every 6 hours as needed for Wheezing/Shortness of Breath. 11/08/2019Active DULoxetine (CYMBALTA) 60 mg capsule Take 1 capsule by mouth once daily.Active pregabalin (LYRICA) 300 mg capsule Take 300 mg by mouth twice daily.Active carbidopa-levodopa (SINEMET) 25-100 mg per tablet Indications:PD (Parkinson's disease) (HCC)Take 1.5 tablets by mouth four times daily. 540 tablet Active Additional Information Patient taking differently: (No dose reported), ORAL,(No frequency reported), Take 2 tablets by mouth at 6 am, 2 tablets at 10 am, and 1 tablet at 2 pm,6 pm, 10 pm and 2 am. Takes with Sinemet CR, Reported on 11/20/2022 tolterodine ER (DETROL LA) 4 mg 24 hr capsule Take 4 mg by mouth once daily.11/04/2022ctive carbidopa-levodopa CR (SINEMET CR) 25-100 mg per tablet Take 2 tablets by mouth at 6 am, 2 tablets at 10 am, and 1 tablet at 2 pm, 6 pm, 10 pm and 2 am.11/04/2022ctive midodrine (PROAMITINE) 5 mg tablet Take 3 tablets by mouth once daily. Take at 7:00am 21 tablet 12/06/2022ctive midodrine (PROAMATINE) 10 mg tablet Take 1 tablet by mouth once daily. Take daily at 2:00pm 7 tablet 12/06/2022ctive midodrine (PROAMATINE) 10 mg tablet Take 1 tablet by mouth once daily. Take daily at 8:00pm 7 tablet 12/06/2022ctive topiramate (TOPAMAX) 100 mg tablet Take 1 tablet by mouth twice daily. 180 Each ctive acetaminophen (TYLENOL) 500 mg tablet 2 tablets by ORAL/FEEDING TUBE route three times daily. 42 tablet 12/06/2022ctive benzocaine-menthol (CHLORASEPTIC) 6-10 mg lozenges Use 1 Lozenge as instructed every 2 hours as needed. 18 Each 12/06/2022ctive benzonatate (TESSALON PERLE) 100 mg capsule Take 1 capsule by mouth three times daily as needed for cough. 9 capsule 12/06/2022ctive fludrocortisone (FLORINEF) 0.1 mg tablet Take 1 tablet by mouth once daily. 7 tablet 12/06/2022ctive glycopyrrolate (ROBINUL) 0.2 mg/mL injection Inject 1 mL intravenously or subcutaneousl every 4 hours as needed. 5 mL 12/06/2022ctive guaiFENesin (MUCINEX) 600 mg 12 hr tablet Take 1 tablet by mouth every 12 hours as needed (cough, congestion). 7 tablet 12/06/2022ctive ipratropium-albuterol (DUONEB) 0.5 mg-3 mg(2.5 mg base)/3 mL nebu Inhale 3 mL as instructed every 4 hours as needed for wheezing/shortness of breath. 10 Each 12/06/2022ctive montelukast (SINGULAIR) 10 mg tablet Take 1 tablet by mouth once daily. 7 tablet 12/06/2022ctive ondansetron (ZOFRAN) 4 mg tablet Take 1 tablet by mouth every 8 hours as needed for nausea/vomiting. 21 tablet 12/06/2022ctive polyethylene glycol 3350 (MIRALAX, GLYCOLAX) 17 gram packet Take 1 Packet by mouth once daily. Dissolve dose in 4 - 8 ounces of liquid and take as directed.12/06/2022ctive senna (SENOKOT) 8.6 mg tab Take 1 tablet by mouth twice daily.12/06/2022ctive Active Problems Patient Care Coordination No te [...] T2DM, who was admitted to [facility] on 11/20 from the ED for syncope [...] 24: Accepted for transfer to [facility], however had episode of bradycardia to30s while [...] WNL S/p zosyn (11/26-11/27) Off pressors since 2099 (11/27) Plan: - Continue with Cefipime (11/27- [...] - Psych consulted, appreciate recs - Continue [employer] Cymbalta, Lyrica, Topamax - Continue Mirtazapine - [...] stage Irritant contact dermatitis due to fecal labajkwpumfj52/06/2023Wound eschar of foot11/24/2022 Overview (11/24/2022): Right and left toes Pressure injury of left foot, rmziulthgyt22/06/2023 Overview (11/24/2022): Lateral foot Severe protein-calorie rjhjonogmbwl31/03/2023At risk for wudxwiua17/03/2023 COVID-19 virus eszdefgxi99/02/2023Generalized /02/7098Zige49/02/2023 History of fusion of cervical spine1Right foot drop08/29/2020Falls eyxyoodaxt33/11/2020Multifactorial gait wlxbdpzy77/11/2020Spinal stenosis of lumbar ysosiw8708/29/2020Orthostatic zqdxadxqcpc26/11/2020Near olzhssy6408/29/2020 Spinal stenosis of cervical dfwmqu2508/29/2020Osteoarthritis of right hip 05/03/2020Acute cystitis without isnwmwnzd96/10/2020 Assessment & Plan (04/27/2020 12:47 PM EDT): Assessment: per Urine Culture result. Pt. treated per susceptibility report and notified. Pt. reports he has tolerated Bactrim before ( 10/2019) Tobacco use04/24/2020 Assessment & Plan (04/24/2020 12:23 PM EDT): Assessment: 60 pack years Currently 1/2 pack day since 01/2020 Cessation with strategies encouraged. Megaloblastic anemia due to vitamin B12 gepotqzprf79/13/2020Osteoarthritis of left hip11/08/2019Open wound of left heel11/08/2019PD (Parkinson's disease) 04/13/2019 Assessment & Plan (04/24/2020 12:22 PM EDT): Assessment: Managed with med Monitored by Neurology Stable at baseline per Pt. report Assessment & Plan (10/18/2019 12:32 PM EST): Assessment: Sinemet 4 times a day to use morning of surgery Nuoljrrqs69/26/2019Psychosis due to Parkinson's aqljkdf5704/13/2019MGUS (monoclonal gammopathy of unknown significance)09/15/2018Spinal cord stimulator wdfsdq2409/07/2018 Assessment & Plan (04/24/2020 12:25 PM EDT): Assessment: for LBP generator in right hip Aware to bring remote on DOS Assessment & Plan (10/18/2019 12:34 PM EST): Assessment: Spinal cord stimulator in place to bring remote day of surgery Complete tear of right rotator cuff08/02/2018Iron deficiency anemia secondary to inadequate dietary iron efcove6306/16/2018Multilevel spine pain06/02/2018Nicotine use disorder, F17. Assessment & Plan (10/18/2019 12:32 PM EST): Assessment: Current Smoker Obesity, Class I, BMI 30-34.9003/17/2018CRPS (complex regional pain syndrome type I)03/16/2018Status post replacement of left shoulder joint02/08/2018Shoulder retiblytw07/13/8114Mvoomx76/19/2018Diabetes qnahzryd11/19/2018 Assessment & Plan (10/18/2019 12:33 PM EST): Assessment: stable on oral medication Hemoglobin A1C (%) Date Value 05/18/2018 5.9 06/17/2017 5.3 Essential cikdzhyegthq70/19/2018 Assessment & Plan (04/24/2020 12:15 PM EDT): Assessment: Medication for Control. Date: BP: 04/24/2020 115/80 Stable. Ijmerunyodiyeh06/19/2018 Assessment & Plan (10/18/2019 12:32 PM EST): Assessment: stable on medication Essential iupnkr1010/27/2017 Assessment & Plan (04/24/2020 12:14 PM EDT): Assessment: right hand Assessment & Plan (10/18/2019 12:32 PM EST): Assessment: tremors in right hand Glenohumeral arthritis, left10/26/2017OA (osteoarthritis) of knee07/01/2017 Primary osteoarthritis of right knee05/20/2017 Overview (05/20/2017): Added automatically from request for surgery [id number] Arthritis of knee04/27/2017Type 2 diabetes mellitus without complication, without long-term current use of ugwyzzy3104/15/2017 Assessment & Plan (04/24/2020 12:17 PM EDT): Assessment: Managed with oral med s/p gastric bypass Hemoglobin A1C (%) Date Value 10/18/2019 5.7 Chronic pain xgyodfho16/28/2017 Assessment & Plan (04/24/2020 12:14 PM EDT): Assessment: lower back pain s/p SCS 02/2018 Monitored by Pain Management ( 04/03/2020) COPD with chronic aasezxsubl10/28/2017 Assessment & Plan (04/24/2020 12:16 PM EDT): Assessment: Managed with inhalers No supplemental oxygen use RA 04/24/20 1148 SpO2: 97% Stable. Assessment & Plan (10/18/2019 12:33 PM EST): Assessment: Symbicort twice a day and Albuterol as needed Primary osteoarthritis of left knee01/28/2017Postlaminectomy saxmhbml78/12/2016 Hypertrophy of prostate with urinary obstruction and other lower urinary tract symptoms (LUTS)08/12/20109893Zqqqyblvwte36/22/2010Frequency of jvfhajhwx32/08/2010 Slow urinary ygzxmv2103/26/2010Impotence of organic rahdvr9910/08/2007Malignant neoplasm of skin of lip05/11/2007 Assessment & Plan (10/18/2019 12:33 PM EST): Assessment: s/p removal Psychosexual dysfunction, bbwtpoofyss75/13/2006Rotator cuff syndrome of shoulder and allied xmfaclotk96/22/2005Spinal stenosis, lumbar region, without neurogenic /26/2004Displacement of cervical intervertebral disc without nucstqdags69/30/2004Brachial neuritis or radiculitis NOS04/17/2004Spinal stenosis in cervical kbjter1103/06/2004Displacement of thoracic intervertebral disc without kbokzutnqv26/19/2004SPRAIN OF NECK ()03/06/2004Unspecified sleep apnea Overview (04/24/2020): Last us 2003, pt was 380 lbs at that time Assessment & Plan (04/24/2020 12:24 PM EDT): Assessment: Uses CPAP at home Resolved Problems ProblemNoted DateDiagnosed DateResolved DateUlcerative umrytu4012/07/2017 07/21/2019Glenohumeral mvxnfbxku71Urgency of urination SPRAIN OF NECK ()Brachial neuritis or mpzqhrvaglt92Carpal tunnel gcdocdyh46 Immunizations ImmunizationAdministration DatesNext Duehepatitis B (HepB) vaccine, 3-dose series, age 20+ yr (ENGERIX-B, RECOMBIVAX HB)08/16/2002,01/27/2002influenza (HD- IIV3) vaccine, age 65+ yr, high dose, trivalent, PF (FLUZONE HIGH-DOSE) 08/24/2019,08/12/2016influenza (IIV4) vaccine, age 6 mo - 64 yr, quadrivalent, PF (AFLURIA, FLUARIX, FLULAVAL, FLUZONE)07/01/2017,07/23/2015influenza (IIV4) vaccine, quadrivalent (AFLURIA, FLULAVAL, FLUZONE)07/17/2020,07/07/2018influenza vaccine, unspecified xclyzvialos56/27/2010novel influenza (M3G9-06) vaccine, PF 08/24/2009pneumococcal conjugate (PCV13) vaccine, 13 valent (PREVNAR 13) 11/15/2018pneumococcal polysaccharide (PPV23) vaccine, 23 valent (PNEUMOVAX 23) 08/13/1995tetanus diphtheria pertussis (Tdap) vaccine, age 7+ yr (ADACEL, BOOSTRIX)11/15/2018,10/22/2015zoster (RZV) vaccine, recombinant (SHINGRIX) 01/19/2019 Family History Medical HistoryRelationCommentsDiabetesMaternal GrandfatherCancerPaternal GrandfatherHypertensionPaternal GrandfatherDiabetesPaternal Grandmother HypertensionPaternal GrandmotherCancerPaternal Uncle6 UNCLES FROM LUNG CA RelationStatusCommentsMaternal GrandfatherPaternal GrandfatherPaternal GrandmotherPaternal Uncle Social History Tobacco UseTypesPacks/DayYears UsedDateSmoking Tobacco: Every DayCigarettes1.5 42.7Started: 12/07/1982Smokeless Tobacco: Never Tobacco Cessation:Ready to Q uit: No; Counseling Given: Yes Comments:currently 8 cigarettes a day Alcohol UseStandard Drinks/WeekCommentsNo0 (1 standard drink = 0.6 oz pure alcohol)Overall Financial Resource Strain (CARDIA)AnswerDate RecordedHow hard is it for you to pay for the very basics like food, housing, medical care, and heating?Not very hard11/25/2022HQ-2AnswerDate RecordedPHQ-2 bjsqm44510/25/2020 Hunger Vital SignAnswerDate RecordedWithin the past 12 months, you worried that your food would run out before you got the money to buymore.Never true11/25/2022 Within the past 12 months, the food you bought just didn't last and you didn't have money to get more.Never true3PRAPARE - TransportationAnswerDate RecordedIn the past 12 months, has lack of transportation kept you from medical appointments or from getting medications?No11/25/2022In the past 12 months, has lack of transportation kept you from meetings, work, or from getting things needed for daily living?No11/25/2022Housing Stability Vital SignAnswerDate RecordedIn the last 12 months, was there a time when you were not able to pay the mortgage or rent on time?No11/25/2022In the last 12 months, how many places have you lived?In the last 12 months, was there a time when you did not have a steady place to sleep or slept in ashelter (including now)?No 11/25/2022rea Deprivation IndexAnswerDate RecordedNational Score (1-100), lower number is lower riskNot on file09/23/2020State Score (1-10), lower number is lower riskNot on file09/23/2020Data from: https://www.neighborhoodatlas.medicine.[facility].edu/. Last address used for calculationNot on file09/23/2020Sex and Gender InformationValueDate RecordedSex Assigned at BirthNot on fileLegal GryJobv39/02/2012 9:51 AM ESTGender Identity Not on fileSexual OrientationNot on fileOccupationIndustryJob Start DateJob End DateRetiredNot on fileNot on fileNot on file Last Filed Vital Signs Vital SignReadingTime TakenCommentsBlood Gsczglkt57/59012/06/2022 5:34 AM EST Xprkl7386/18/2023 9:08 AM GFKXuoarlmchyb29.7 ??C (98.1 ??F)12/06/2022 5:34 AM ESTRespiratory Vrbq803812/06/2022 9:08 AM ESTOxygen Szctuuwedu997%12/06/2022 8:58 AM ESTInhaled Oxygen Concentration--Awxuon24.2 kg (196 lb 10.4 oz)12/01/2022 6:00 AM IAYBhqebh116.8 cm (5' 10 )11/20/2022 12:53 PM ESTBody Mass Index28.22 11/20/2022 12:53 PM EST Plan of Treatment Health MaintenanceDue DateLast DoneCommentsAbdominal Aortic Aneurysm Screening 1958Dilated Retinal Exam1968Urine Albumin:Creatinine Ratio1968 Annual PCP Team Chronic Disease Visit1976Anxiety Oyenneeew04/25/1976 Depression Elaxeckxv56/25/1976Hepatitis C Ujrxvtroc79/25/1976CT Colonography 2003Cologuard (FIT-DNA)2003Fecal Occult Blood2003Prostate Cancer Screening Xsmhhhlnou91/25/7952Pfgjvzilawdmc74/25/2003Diabetic Foot Exam RSV Vaccine (1 - Risk 60-74 years 1-dose series)2018 Shingrix Vaccine (2 of 2)/12/20180616RgN4S18//04/2022, 04/24/2020, 10/18/2019, Additional history existsPneumococcal Vaccine: 50+ (3 of 3 - PCV20 or PCV21)4011/15/2018, 08/13/1995LDL Npjfavqawab96/11/2024 11/29/2022, 11/20/2022dvance Directive Yeosfutneu33/01/2025[facility] Annual Wellness Visit5Covid-19 Vaccine ( - season)2025 11/06/2021, 10/15/2021, 01/30/2021, Additional history existsInfluenza Vaccine (#1)/10/2021, 09/02/2022, 10/15/2021, Additional history exists Sutebnernri26, 08/11/2016Colorectal Cancer Xrsxrkzob70/24/2026 DTaP,Tdap,Td Vaccine (3 - Td or Tdap), 10/22/2015 Medical Devices ImplantedTypeAreaManufacturerDevice IdentifierShelf Expiration DateModel / Serial / LotRestrictor 24mm Medium [place] Cement Revision Plug Hip - [id number] Implanted:Qty: [facility] [facility] / PuttyLeft: Bone - KneeSTRY-HOWM HPYUGENXBYR94/10/[id number] / / [id number] Simplex P Tobramycin Bone Full Dose Radiopaque Preblend Sterile - [id number] Implanted:Qty: 5 on 04/27/2017 at [facility] / PuttyLeft: Bone - KneeSTRY-[facility] TZFXPFJSFDB95/10/[id number] / / [id number] 30mm Large [place] Cement Revision Plug Hip - [id number] Implanted:Qty: 1 on 04/27/2017 at [facility] / PuttyLeft: Bone - KneeSTRY-[facility] EMHFKBENEET64//[id number] / / [id number] Simplex P Speedset Bone Radiopaque Sterile - [id number] Implanted:Qty: 1 [facility]29/[facility] PuttyLeft: Bone - ShoulderSTRY-[facility] XRZNRDCULUK83/30/[id number] / / [id number]-Wz-S-Sfsp Implant - [id number] Implanted:Qty: 1 [facility]05/[facility]: ThmgVCWON69/31/2019 [id number] / / [id number]:NEVRO JAZLYN. N300 LEAD ANCHOR KITHead Global Unite 52mm Standard 18mm Humeral - [id number] Implanted:Qty: 1 on 12/29/2017 [facility]plantLeft: Bone - ShoulderJ&J DEPUY OUGOLFFTCSD13/31/[id number] / / [id number] Farm Management Agent Kit Implanted:Qty: 1 on 03/16/[address] [facility]ImplantN/A: BackOTHER 05/14/20209750TVWK2677-46H / / [id number] V40 28mm -2.7mm Offset Taper Biolox Delta Femoral Hip - [id number] Implanted:11/08/2019 at [facility] (Quantity not on file)Joint - HipLeft: Bone - HipSCHI [facility] CDLLCKBPMSS91/11/[id number] / / [id number] 46mm F Cocr Acetabular Modular Dual Mobility Primary Hip - [id number] Implanted:11/08/2019 at [facility] (Quantity not on file)Joint - HipLeft: Bone - [facility]STR[facility] PNKEVMHPTLB40/11/[id number] / / [id number] Adm Mobile Bearing Hip Rastafarian 52mm 28mm 0d X3 8.9mm Acetabular - [id number] Implanted:11/08/2019 at [facility] (Quantity not on file)Joint - HipLeft: [facility] - HipSCHI [facility] OSEEHZMRIEV25/11/[id number] / / [id number] Adm Mobile Bearing Hip Rastafarian 52mm 28mm 0d X3 8.9mm Acetabular - [id number] Implanted:05/03/2020 at [facility] (Quantity not on file)Joint - HipRight: [facility] GRYZHWKAMGC66/24/[id number] / / [id number] V40 28mm +4mm Offset Taper Biolox Delta Femoral Hip - [id number] Implanted:05/03/2020 at [facility] (Quantity not on file)Joint - HipRight: [facility] QMCETPDRZLW06/14/[id number] / / [id number] 46mm F Cocr Acetabular Modular Dual Mobility Primary Hip - [id number] Implanted:05/03/2020 at [facility] (Quantity not on file)Joint - HipRight: [facility] HipSCHI [facility] JORNAWUIHVW61/04/[id number] / / [id number] Triathlon 12mm Cocr 100mm Femoral Cemented Total Stabilized Knee - [id number] Implanted:Qty: 1 on 04/27/2017 at [facility] KneeLeft: Bone - Knee STRY-[facility] IMFYJMDQXAI3146G944 / / [id number] Triathlon 15mm Cocr 50mm Femoral Cemented Total Stabilize Knee - [id number] Implanted:Qty: 1 on 04/27/2017 at [facility] KneeLeft: Bone - Knee [facility] WKZKCLUQXIG82/22/[id number] / / [id number] Triathlon 7 Cocr Femoral Total Stabilize Knee Left - [id number] Implanted:Qty: 1 on 04/27/2017 at [facility] KneeLeft: Bone - Knee [facility] AMOXDGVSDZE15/17/99359831Q450 / / [id number] Triathlon 7 5mm Femoral Total Stabilize Knee Posterior - [id number] Implanted:Qty: 1 on 04/27/2017 at [facility] KneeLeft: Bone - Knee STRY-HOW AOOOEXUAMNL91/06/26662020H635 / / [id number] Triathlon 7 5mm Femoral Total Stabilize Knee Left - [id number] Implanted:Qty: 1 on 04/27/2017 at [facility] KneeLeft: Bone - Knee STRY-HOW RRVIHZHVZTD01/28/[id number] / / VDHUAugment Triathlon 7 5mm Femoral Total Stabilize Knee Left - [id number] Implanted:Qty: 1 on 04/27/2017 at [facility] KneeLeft: Bone - Knee STRY-HOW TYKPOUCBAOY39/01/[id number] / / MYMMAugment Triathlon 6 10mm Tibial Total Stabilize Right Medial Left Lateral - [id number] Implanted:Qty: 1 on 04/27/2017 at [facility] KneeLeft: Bone - Knee STRY-HOW SCHZWLJPBKO52/01/[id number] / / [id number] Triathlon 6 [place] Cocr Tibial Total Stabilize Cemented Knee - [id number] Implanted:Qty: 1 on 04/27/2017 at [facility] KneeLeft: Bone - Knee STRY-HOW QOVYVIHHIFT34/24/[id number] / / [id number] Triathlon 6 10mm Tibial Total Stabilize Left Medial Right Lateral - [id number] Implanted:Qty: 1 on 04/27/2017 at [facility] KneeLeft: Bone - Knee STRY-HOW YBJGPQXUPUK82/20/19063120V235 / / [id number] Triathlon 6 X3 16mm Tibial Total Stabilize Plus Knee - [id number] Implanted:Qty: 1 on 04/27/2017 at [facility] KneeLeft: Bone - Knee STRY-HOW KNDDXPAYUVN81/02/[id number] / / [id number] Triathlon 7 Pa Femoral Cruciate Retain Bead Knee Right - [id number] Implanted:Qty: 1 on 07/01/2017 at [facility] KneeRight: Bone - KneeSTRY-HOW QGUWGSMOGUQ91/10/[id number] / / [id number] Triathlon 6 X3 13mm Tibial Condylar Stabilized Knee - [id number] Implanted:Qty: 1 on 07/01/2017 at [facility] KneeRight: Bone - KneeSCHI [facility] RAKENIAHJTH05/12/[id number] / / [id number] Triathlon 6 Tritanium [id number] Tibial 4 Cruciform Peg Keel Knee - [id number] Implanted:Qty: 1 on 07/01/2017 at [facility] - KneeSCHI [facility] RIDHGMJAMYI38/22/06181571-Q-959 / / [id number] Tritanium 35mm Metal 10mm Patellar Asymmetric Knee - [id number] Implanted:Qty: 1 on 07/01/2017 at [facility]: Bone - [facility] PYWJUQAEMLO58/08/[id number]-Z-663 / / [id number] Triathlon 35mm 10mm Patellar Asymmetric Knee - [id number] Implanted:Qty: 1 on 04/27/2017 at [facility] PatellaLeft: Bone - KneeSCHI [facility] CFCTCCLQXZC43/07/19631488X859 / / [id number] 48mm 7mm Humeral [place] Peg Left Glenoid - [id number] Implanted:Qty: 1 on 12/29/2017 at [facility] - ShoulderLeft: Bone - ShoulderJ&J DEPUY PCBJDXQYFTF16/31/[id number] / / [id number] Global Ap 12mm Porocoat 137mm Humeral Arthroplasty System Shoulder - [id number] Implanted:Qty: 1 on 12/29/2017 at [facility] - ShoulderLeft: Bone - ShoulderJ&J DEPUY VHGSDNBJNSR15/31/[id number] / / [id number] Global Ap 135d Taper Fix Shoulder Arthroplasty System - [id number] Implanted:Qty: 1 on 12/29/2017 at [facility] - ShoulderLeft: Bone - ShoulderJ&J DEPUY ZNYLAZGNTNV48/31/[id number] / / [id number] Triath Tib Cone Sz A - [id number] Implanted:Qty: 1 on 04/27/[address] [facility]: Bone - KneeSTRY- HOW LSSTHWNGCDF54/10/05864973-R-820 / / [id number] Accolade Ii 7 127d Femoral - [id number] Implanted:11/08/2019 at [facility] (Quantity not on file)JointLeft: Bone - HipSTRY-HOW DBKJNWKFSCW36/12/29567933-1153 / / [id number] Trident Ii 56mm F Tritanium Acetabular 5 Screw Hole Cluster Sterile - [id number] Implanted:11/08/2019 at [facility] (Quantity not on file)JointLeft: Bone - HipSTRY-[facility] HFKOCWBVUYZ72/12/0059390-07-60P / / [id number] Accolade Ii 7 127d Femoral - [id number] Implanted:05/03/2020 at [facility] (Quantity not on file)JointRight: Bone - HipSTRY-HOW LKBOOFAZBTO56/15/99575680-2760 / / [id number] Trident Ii 56mm F Tritanium Acetabular 5 Screw Hole Cluster Sterile - [id number] Implanted:05/03/2020 at [facility] (Quantity not on file)JointRight: Bone - HipSTRY-[facility] PRDPSJDBTHW59/02/5545425-87-39U / / [id number] 50cm Nevro - [id number] Implanted:Qty: 2 on 05/08/2016 at [facility]/01/07/20196073WPBJ9924-75M / / [id number]:50Lead 50cm Nevro - [id number] [facility]ed:Qty[facility] GvhfZISWA01/30/2019 QTKS2149-60K / / [id number]:NEVRO BLUE PERC LEAD KITLead 50cm Nevro - [id number] Implanted:Qty: 1 on [facility]/05/2016 [facility]: PectPJDDN54/30/2019 EWLS1756-68G / / [id number]:NEVRO BLUE PERC LEAD KITGnrtr [facility] Kit Nevro - [id number] Implanted:Qty: 1 on 06/05/2016 [facility] FHCNeurostimulatorN/A: BackOTHER 02/15/20185845UKAU9315 / [id number] / [id number]:PEDRO LESTER KIT Procedures Procedure NamePriorityDate/TimeAssociated DiagnosisCommentsLIPID-LIPO PANEL 1 STAT Add-on11/29/2022 2:31 AM EST HEMOGLOBIN M1KXuenvju00/07/2020 1:03 PM EDT Acute cystitis with hematuria Thin blood (HCC) 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) COLONOSCOPY - WJFGRXTJXXZenqvri74/24/2016 10:20 AM EDT Screening for colon cancer from Last 3 Months or Most Recently Relevant to Health Maintenance Results * (ABNORMAL) LIPID PANEL, NONFASTING (11/29/2022 2:31 AM EST)ComponentValueRef RangeTest MethodAnalysis TimePerformed AtPathologist SignatureTotal Cholesterol, Onqwuwfqel53<200 mg/dL11/29/2022 10:30 PM [facility] <200 mg/dL, Desirable 200-239 mg/dL, Borderline high >239 mg/dL, High Triglycerides, Bryptwjivs644<150 mg/dL11/29/2022 10:30 PM [facility]: <150 mg/dL, Normal 150-199 mg/dL, Borderline high 200-499 mg/dL, High >499 mg/dL, Very high HDL Cholesterol, Jwytsztcyz09(L)>39 mg/dL11/29/2022 10:30 PM [facility]: 40-59 mg/dL, Acceptable >59 mg/dL, High: Negative risk factor for coronary heart disease <40 mg/dL, Low: Positive risk factor for coronary heart disease LDL Cholesterol Calculated, Fltskcysve48<100 mg/dL11/29/2022 10:30 PM EST [facility]Comment: <100 mg/dL, Optimal 100-129 mg/dL, Near optimal/above optimal 130-159 mg/dL, Borderline high 160-189 mg/dL, High >189 mg/dL, Very high Secondary prevention optimal LDL Cholesterol levels are recommended to be < 70 mg/dL Non HDL Cholesterol, Poqeqyznyt96<130 mg/dL11/29/2022 10:30 PM [facility] LABComment: <130 mg/dL, Optimal 130-159 mg/dL, Near optimal/above optimal 160-189 mg/dL, Borderline high 190-219 mg/dL, High >219 mg/dL, Very high Secondary prevention optimal non HDL Cholesterol levels are recommended to be <100 mg/dL VLDL Cholesterol, Ndgkuraxcr60<30 mg/dL11/29/2022 10:30 PM [facility] LABTotal Chol/HDL Ratio, Nonfasting5.27(H)<5.10 mg/dL11/29/2022 10:30 PM [facility] LABLDL/HDL Ratio, Nonfasting2.73(H) <2.54 mg/dL11/29/2022 10:30 PM [facility] LABComment: Reference: 1. National Cholesterol Education Program ATP III Guideline At-A-Glance Quick Desk Reference: National Heart, Lung, and Blood [place]. National Institutes of Health. 2001: NIH Publication No. 01-3305. 2. An International Atherosclerosis Society position paper: global recommendations for the management of dyslipidemia: executive summary, Atherosclerosis. 2014: 232(2):410-413. Specimen (Source)Anatomical Location / LateralityCollection Method / Volume Collection TimeReceived TimeBloodBLOOD SPECIMEN / UnknownVenipuncture / Unknown 11/29/2022 2:31 AM EST11/29/2022 2:47 AM EST Narrative Authorizing ProviderResult TypeResult StatusElian Juan Pablo Harris MDLABORATORYFinal ResultPerforming OrganizationAddressCity/State/ZIP CodePhone Number [facility] [address] [place] [address], * HGB A1C (04/24/2020 1:03 PM EDT)ComponentValueRef RangeTest MethodAnalysis TimePerformed AtPathologist SignatureHemoglobin A1C5.64.3 - 5.6 %04/24/2020 1:36 PM [facility])Estimated Average Yuaqrqz314mx/dL 04/24/2020 1:36 PM EDTSFalmouth Hospital ([facility])Comment: eAG: (Estimated average glucose) is a calculated value from HgbA1c and is lead customer service representative of the average blood glucose level in the last 2-3 month period. Specimen (Source)Anatomical Location / LateralityCollection Method / Volume Collection TimeReceived TimeBlood specimen (specimen)WHOLE BLOOD SPECIMEN / Bffcynx9804/24/2020 1:03 PM EDT04/24/2020 1:05 PM EDT Narrative Authorizing ProviderResult TypeResult StatusJoseph Rayray Guevara Jr., MDLABORATORY Final ResultPerforming OrganizationAddressCity/State/[facility] CodePhone Number [facility] [address] [place] [address] [facility] ([place]) [address] [facility], [address] * COLONOSCOPY - DIAGNOSTIC (08/11/2016 10:20 AM EDT)ComponentValueRef RangeTest MethodAnalysis TimePerformed AtPathologist TngeawqjwBhxhobxkntxwvY04 Gastrointestinal Endoscopy Patient Name: Jamarcus García Procedure Date: 08/11/2016 10:20 AM Date of : 1960 Admit Type: Outpatient Age: 55 Room: A31 Procedure 10 ([id number]) Gender: Male Note Status: Finalized Attending MD: Bhupendra Barajas MD Procedure: ?Colonoscopy Indications: ?Screening for colorectal malignant neoplasm Providers: ?Bhupendra Barajas MD, Agus Russo MD (Fellow) Patient Profile: ?Last Colonoscopy: 5 years ago. Referring Physician: Medicines: ?Fentanyl 25 micrograms IV, Midazolam 1 mg IV, See the ?other procedure note for documentation of the ?administered medications Complications: ?No immediate complications. Requesting Provider: Procedure: ?Pre-Anesthesia Assessment: ?- Prior to the procedure, a History and Physical was ?performed, and patient medications and allergies were ?reviewed. The patient's tolerance of previous ?anesthesia was also reviewed. The risks and benefits of ?the procedure and the sedation options and risks were ?discussed with the patient. All questions were ?answered, and informed consent was obtained. Prior ?Anticoagulants: The patient has taken no previous ?anticoagulant or antiplatelet agents. ASA Grade ?Assessment: II - A patient with mild systemic disease. ?After reviewing the risks and benefits, the patient was ?deemed in satisfactory condition to undergo the ?procedure. ?After I obtained informed consent, the scope was passed ?under direct vision. Throughout the procedure, the ?patient's blood pressure, pulse, and oxygen saturations ?were monitored continuously. The Colonoscope was ?introduced through the anus and advanced to the cecum, ?identified by appendiceal orifice and ileocecal valve. ?The colonoscopy was performed without difficulty. The ?patient tolerated the procedure well. The quality of ?the bowel preparation was good. The ileocecal valve, ?appendiceal orifice, and rectum were photographed. Findings: ? The perianal exam findings include non-thrombosed external hemorrhoids. ? The exam was otherwise without abnormality on direct and retroflexion ? views. Impression: ? - Non-thrombosed external hemorrhoids found on perianal ?exam. ?- The examination was otherwise normal on direct and ?retroflexion views. ?- No specimens collected. Estimated Blood Loss: Estimated blood loss: none. Recommendation: ? - Patient has a contact number available for ?emergencies. The signs and symptoms of potential ?delayed complications were discussed with the patient. ?Return to normal activities tomorrow. Written discharge ?instructions were provided to the patient. ?- Discharge patient to home. ?- Resume previous diet. ?- Continue present medications. ?- Repeat colonoscopy in 10 years for screening purposes. ?- Return to referring physician. Attending Participation: ? I was present and participated during the entire procedure, including ? non-sifuentes portions. Dr. Bhupendra Barajas MD, MPH Bhupendra Barajas MD 08/11/2016 10:59:53 AM This report has been signed electronically by Bhupendra Barajas MD Number of Addenda: 0 Note Initiated On: 08/11/2016 10:20 AM Procedure Start: 10:39:18 AM Procedure End: 10:56:53 [facility] INSTITUTEAnatomical RegionLaterality ModalityOtherSpecimen (Source)Anatomical Location / LateralityCollection Method / VolumeCollection TimeReceived Time08/11/2016 10:20 AM EDT Narrative Authorizing ProviderResult TypeResult StatusJoharvinder Barajas MDDIGESTIVE DISEASEFinal Result from Last 3 Months or Most Recently Relevant to Health Maintenance Insurance Advance Directives * DNR-CC (Latest Code Status on File) Date ActivatedDate InactivatedComments12/03/2022 3:20 PM2 7:51 PMQuestion AnswerCommentsDNR Order Discussed With:* Patient * DNR-CCA Date ActivatedDate InactivatedComments12/01/2022 2:02 PM2 3:20 PMQuestion AnswerCommentsDNR Order Discussed With:* Patient * Full Code Date ActivatedDate InactivatedComments11/20/2022 6:26 PM2 2:01 PMQuestion AnswerCommentsFull Code Order Discussed With:* Patient Care Teams Team MemberRelationshipSpecialtyStart DateEnd Date Jaden Crabtree [address] [place] [phone] [facility] - General06/10/02
--- OUTSIDE RECORDS SUMMARY | 2025-08-09 11:39 | XMS_ITS | Clinical Summary ---
Author Organization [facility] Address [address], [address] [place] [address] Care Team Providers Care Mess Cook Name Role Phone Jaden Crabtree DO Primary Care Provider [phone] Allergies Active AllergyReactionsCriticalityNoted DateCommentsMoxifloxacinHives,Shortness Of XmocndNvjc02/07/6838PjprxchjtWlwsbNufyam85/07/2022ErythromycinItching,Nausea And VeghvdlhJxq46/07/2022ClonazepamShortness Of AtizwbLbgj36/07/2022Levofloxacin Hives,Shortness Of GtzyozImov05/07/2022 Medications MedicationSigDispense QuantityRefillsLast FilledStart DateEnd DateStatus [place]-3 Fatty Acids (FISH OIL) 1200 MG CAPS Take by mouth dailyActive Multiple Vitamin (MULTIVITAMIN PO) Take by mouth dailyActive tolterodine (DETROL LA) 4 MG extended release capsule Take 4 mg by mouth dailyActive budesonide-formoterol (SYMBICORT) 160-4.5 MCG/ACT AERO Inhale 2 puffs into the lungs 2 times dailyActive acarbose (PRECOSE) 25 MG tablet Take 25 mg by mouth 3 times daily (with meals)Active albuterol sulfate HFA 108 (90 Base) MCG/ACT inhaler Inhale 1 puff into the lungs as needed for WheezingActive atorvastatin (LIPITOR) 10 MG tablet Take 10 mg by mouth nightlyActive betamethasone dipropionate 0.05 % cream Apply topically 2 times daily as needed Apply topically 2 times daily.Active topiramate (TOPAMAX) 100 MG tablet Take 100 mg by mouth dailyActive DULoxetine (CYMBALTA) 60 MG extended release capsule Take 60 mg by mouth nightlyActive ezetimibe (ZETIA) 10 MG tablet Take 10 mg by mouth nightlyActive pregabalin (LYRICA) 300 MG capsule Take 300 mg by mouth 2 times daily.Active lidocaine (LIDODERM) 5 % Place 1 patch onto the skin daily as needed for Pain 12 hours on, 12 hours off. Active linaclotide (LINZESS) 145 MCG capsule Take 145 mcg by mouth as neededActive metFORMIN (GLUCOPHAGE) 500 MG tablet Take 500 mg by mouth 2 times daily (with meals)Active midodrine (PROAMATINE) 5 MG tablet Take 5 mg by mouth 2 times dailyActive pantoprazole (PROTONIX) 40 MG tablet Take 40 mg by mouth dailyActive ondansetron (ZOFRAN) 4 MG tablet Take 4 mg by mouth as needed for Nausea or VomitingActive Potassium Citrate ER 15 MEQ (1620 MG) TBCR Take by mouth 3 times dailyActive QUEtiapine (SEROQUEL) 25 MG tablet Take 25 mg by mouth nightlyActive sucralfate (CARAFATE) 1 GM tablet Take 1 g by mouth as neededActive SUMAtriptan (IMITREX) 50 MG tablet Take 50 mg by mouth once as needed for MigraineActive tamsulosin (FLOMAX) 0.4 MG capsule Take by mouth nightly 2 tabActive valACYclovir (VALTREX) 500 MG tablet Take 500 mg by mouth as neededActive carbidopa-levodopa (SINEMET CR) 25-100 MG per extended release tablet 6 times daily Take 1 tab at 2am Take 2 tab at 6am and 10am Take 1 tab 2pm, 6pm, 10pm09/26/2021ctive carbidopa-levodopa (SINEMET) 25-100 MG per tablet 5 times daily Take 2 tab at 6am, 10am Take 1 tab at 2pm, 6pm. 10pm09/26/2021ctive diclofenac (VOLTAREN) 75 MG EC tablet 2 times daily01/20/2022ctive SANTYL 250 UNIT/GM ointment daily as lfrcid1612/07/2021ctive Urea 40 % LOTN Apply topically 2 times daily as neededActive mupirocin (BACTROBAN) 2 % nasal ointment by Nasal route 2 times daily Take by Nasal route 2 times daily.04/17/2022Active Active Problems ProblemNoted DateDiagnosed DateIdiopathic ghdeotdlhap46/26/2022Lumbar stenosis with neurogenic yegqxmyzizzc96/22/2022 Family History Medical HistoryRelationNameCommentsCancerBrotherbrainDementiaFatherHigh Blood PressureFatherEmphysemaMaternal GrandfatherKidney DiseaseMaternal Grandfather DementiaMotherDiabetesMotherHeart DiseaseMotherCHFHigh Blood PressureMother CancerPaternal GrandfatherlungDiabetesPaternal GrandmotherHigh Blood Pressure Paternal GrandmotherStrokeNeg HxRelationNameStatusCommentsBrotherFatherAlive Maternal GrandfatherMotherDeceasedPaternal GrandfatherPaternal Grandmother Social History Tobacco UseTypesPacks/DayYears UsedDateSmoking Tobacco: Every DayCigarettes0.545 Smokeless Tobacco: NeverAlcohol UseStandard Drinks/WeekCommentsNever0 (1 standard drink = 0.6 oz pure alcohol)Sex and Gender InformationValueDate RecordedSex Assigned at BirthNot on fileLegal XluAzyj1711/28/2012 4:45 PM EST Gender IdentityNot on fileSexual OrientationNot on file Last Filed Vital Signs Vital SignReadingTime TakenCommentsBlood Yobmpjge509/5505 9:29 AM EDT Ijnpm399902/18/2022 8:30 AM KXVUbifywmzsiy76.6 ??C (97.9 ??F)02/18/2022 8:30 AM EDTRespiratory Jxch8293 8:30 AM EDTOxygen Hcfcqhpasg83%02/18/2022 8:30 AM EDTInhaled Oxygen Concentration--Wiasqu837.9 kg (240 lb)02/09/2022 5:15 AM UGOAzqxhp688.8 cm (5' 10 )02/07/2022 9:09 AM EDTBody Mass Index34.44002/07/2022 9:09 AM EDT Plan of Treatment Not on file Medical Devices ImplantedTypeAreaManufacturerDevice IdentifierShelf Expiration DateModel / Serial / LotScrew Spinal Streamline 7.5x55mm - [id number] Implanted:Qty: 1 on 02[facility]07[facility]20[facility] Spine Lumbar[employer]-[id number] / / Set Scr Spnl Ti Streamline - [id number] Implanted:Qty: 9 on 02/07/2022 [facility]: Spine LumbarSURGALIGN SP[employer] [id number] / / Screw Spnl L45mm Dia7.5mm Thorlum Ti Ally Polyax Streamline - [id number] Implanted:Qty: 2 on 02/07/2022 [facility]: Spine LumbarS[employer] [id number] / / Screw Spnl L50mm Dia7.5mm Thorlum Ti Ally Polyax Streamline - [id number] Implanted:Qty: 6 on 02/07/2022 [facility]: Spine LumbarS[employer] [id number] / / Ta Spnl L120mm Cym30us Thorlum Prebent Streamline - [id number] Implanted:Qty: 1 on 02/07/2022 by [facility]: Spine LumbarS[employer] [id number] / / Ta Spnl L100mm Yqp57mo Thorlum Prebent Streamline - [id number] Implanted:Qty: 1 on 02/07/2022 by [facility]: Spine LumbarS[employer] [id number] / / Additional Health Concerns InfectionOnset DateLast IndicatedMRSA Comment:Thuan 01/23/2022/04/[address] [place] [address] Advance Directives * Full Code (Latest Code Status on File) Date ActivatedDate InactivatedComments02/13/2022 7:01 AM02/18/2022 2:18 PM * Full Code Date ActivatedDate InactivatedComments02/07/2022 8:29 AM02/07/2022 4:12 PM Care Teams Team MemberRelationshipSpecialtyStart DateEnd Date Jaden Crabtree DO [address] [facility] [address] [place] [address] PCP - GeneralFamily Medicine01/23/22
--- OUTSIDE RECORDS SUMMARY | 2025-08-09 11:39 | XMS_ITS | Clinical Summary ---
Author Organization [facility] Address [address] [place] [address] Care Team Providers Care Homicide Detective Name Role Phone MichiJaden guzmán Primary Care Provider [phone] Bhupendra Painter MD Unavailable Allergies Active AllergyReactionsCriticalityNoted DateCommentsCelecoxibGI intolerance, Hives,Rash,EvwkzmdMvyp49/17/2017 Other reaction(s): GI Upset, Unknown ClonazepamItching,Shortness of breath,CedwzqbHazq66/17/2017ErythromycinItching, Nausea And Vomiting,Nausea Only,TgwwhxiSds47/01/2021 Other reaction(s): Unknown Erythromycin BaseHives,Shortness of uhmpkqVscd01/19/2004LevofloxacinHives, Shortness of breath,DqusufyKhjd78/13/2010 Other reaction(s): Unknown MoxifloxacinHives,Itching,Rash,Shortness of breath,NfcgqEagb36/02/2006 TigcquftauokDkkjm79/05/2020 Medications MedicationSigDispense QuantityRefillsLast FilledStart DateEnd DateStatus carbidopa-levodopa (Sinemet CR) 25-100 mg ER tablet Take 2 tablets at 0600 and 1000; take 1 tablet at 1400, 1800, 2200Active carbidopa-levodopa (Sinemet) 25-100 mg tablet Take 3 tablets at 0600; take 2 tablets at 1000; take 1 tablet at 1400, 1800, 2200Active montelukast (Singulair) 10 mg tablet Take 10 mg by mouth in the morning.Active fludrocortisone (Florinef) 0.1 mg tablet TAKE TWO TABLETS BY MOUTH DAILY DIRECTEDActive acarbose (Precose) 25 mg tablet Take 25 mg by mouth in the morning, afternoon, and at bedtime.Active pregabalin (Lyrica) 300 mg capsule take one capsule by mouth twice a day for 30 daysActive tolterodine LA (Detrol LA) 4 mg 24 hr capsule Take 4 mg by mouth in the morning.Active midodrine (Proamatine) 5 mg tablet Check blood pressure at 8 am, 12 pm and 6 pm. If top number is 110 or lower take 3 tablets (15 mg).If top number 111-149 take 2 tablets (10 mg) if top number is 150 or higher DO NOT TAKE.3Active venlafaxine XR (Effexor-XR) 150 mg 24 hr capsule Take 1 capsule by mouth in the morning.5Active topiramate (Topamax) 100 mg tablet Take 100 mg by mouth in the morning and at bedtime.Active DULoxetine (Cymbalta) [address] capsule Take 60 mg by mouth in the morning.Active ezetimibe (Zetia) 10 mg tablet Take 10 mg by mouth in the morning.02/19/2021ctive traMADol (Ultram) 50 mg tablet Active potassium citrate CR (Urocit-K-15) 15 mEq ER tablet Take 15 mEq by mouth twice a day.01/06/2024ctive albuterol sulfate 90 mcg/actuation aerosol powdr breath activated Inhale 2 puffs every 4 (four) hours.Active albuterol 1.25 mg/3 mL nebulizer solution Inhale 1 ampule every 6 (six) hours if needed.11/08/2019Active atorvastatin (Lipitor) 10 mg tablet Take 10 mg by mouth in the morning.Active docusate sodium (Colace) 100 mg capsule Take 100 mg by mouth if needed each day (constipation).Active rmmyvsb-ucdvnxwfbnflt-rkwbsjjc (Excedrin Migraine) 250-250-65 mg tablet Take 2 tablets by mouth every 6 (six) hours if needed for headaches.Active dicyclomine (Bentyl) 10 mg capsule Take 10 mg by mouth two times daily.Active ondansetron (Zofran) 4 mg tablet Take 4 mg by mouth every 8 (eight) hours if needed for nausea or vomiting.Active collagenase 250 unit/gram ointment Apply 1 Application topically in the morning.Active wound dressings (Triad Wound Dressing) paste Apply 1 Application topically three times daily.Active SUMAtriptan (Imitrex) 50 mg tablet Take 50 mg by mouth every 2 (two) hours if needed for migraine. May repeat dose once in 2 hours if no relief. Do not exceed 2 doses in 24 hours.Active ciclopirox (Loprox) 0.77 % cream Apply 1 Application topically two times daily.Active pyRIDostigmine (Mestinon) 60 mg tablet Take 60 mg by mouth three times daily. 1/2 to 1 tablet three times daily as directedActive omeprazole (PriLOSEC) [address] capsule Indications:Chronic gastric ulcer with hemorrhageTake 1 capsule (40 mg) by mouth before breakfast. Do not crush or chew. 30 capsule tive diclofenac (Voltaren) 1 % topical gel Indications:ArthritisApply topically if needed in the morning, at noon, in the evening, and at bedtime for pain (for arthritic pain). 100 g 51Expired Active Problems ProblemNoted DateDiagnosed KmudJgegy04/28/5207Yswoveujyhe80/28/2025Marginal ulcer06/15/2025ftercare following surgery of the musculoskeletal system 04/25/20253269Fhywey90/08/7528Segjlnw04/08/2025PH with urinary obstruction 04/25/2025hest pain04/25/2025Degeneration of intervertebral disc of cervical zcsskr3904/25/2025Degeneration of intervertebral disc of lumbosacral region 04/25/20256859Cdquraqwqp77/08/2025owel oqklttglwfgt06/08/2025Incontinence without sensory fqwfentws13/08/2025Iron deficiency wlwiki3104/25/2025Kidney stones 04/25/2025Other forms of scoliosis, site bzrmtepasqc18/08/2025Recurrent UTI 04/25/2025Sciatica, left side04/25/2025History of tjbzulfebds24/08/2025Urinary ymgwghukg90/08/2025UTI /08/2025Sinus pause04/25/2025Second degree heart block by electrocardiogram (ECG)04/14/2025 Overview (04/14/2025): On event monitor Pause of 3 .58 seconds 10:30am Open wound of left great toe03/16/2025 Overview (04/25/2025): PVR with toe pressures Critical limb ischemia of both lower extremities with kxjxorzx83/11/2024 Overview (04/25/2025): Bilateral toe wounds nonhealing, no PVR or testing Encounter for abdominal aortic aneurysm (AAA) xwnzmlsur34/11/2024cute kidney ftvggz8108/20/2023Irritant contact dermatitis due to fecal pxmecegbawcs29/06/2023 Pressure injury of coccygeal region, stage ressure injury of left foot, esehhfxlakw09/06/2023 Overview (04/25/2025): Lateral foot Wound eschar of foot11/24/2022 Overview (04/25/2025): Right and left toes At risk for hgwqqyal36/03/2023Severe protein-calorie wtaehdyyzwoz92/03/2023 COVID-19 virus qjudfryig90/02/1289Ytmt76/02/2023eneralized /02/2023 Testicular mylnbqxtnywo33/21/2022Lumbar stenosis with neurogenic claudication 2Coronary kuortxqbezonenm53/14/2022History of fusion of cervical spine 10/10/2021hy-Drager bvencxtc58/28/2021Walking difficulty due to ankle and foot 02/08/2021Falls actqfvtvbm78/11/2020Orthostatic aqlcisnkmvk80/11/2020 Multifactorial gait mxgdkzoz85/11/2020Near ugzgvuo2208/29/2020Right foot drop 08/29/2020Acute cystitis without nqtsvgjku60/10/2020Tobacco use04/24/2020 Overview (04/25/2025): Last Assessment & Plan: Assessment: 60 pack years Currently 1/2 pack day since 01/2020 Cessation with strategies encouraged. Open wound of left heel11/08/2019Osteoarthritis of left hip11/08/2019Dysphagia 04/13/2019Psychosis due to Parkinson's bkkawfy8904/13/2019MGUS (monoclonal gammopathy of unknown significance)09/15/2018Spinal cord stimulator status 09/07/2018 Overview (04/25/2025): Last Assessment & Plan: Assessment: for LBP generator in right hip Aware to bring remote on DOS Complete tear of right rotator cuff08/02/2018Iron deficiency anemia secondary to inadequate dietary iron ksswgi0706/16/2018Nicotine use dufbdjwz23/30/2018Obesity, Class I, BMI 30-34.9003/17/2018CRPS (complex regional pain syndrome type I) 03/16/2018Shoulder omdtdwiqg67/13/2018Essential ndpcrxutixbp84/19/2018 Overview (03/20/2025): Last Assessment & Plan: Assessment: Medication for Control. Date: BP: 04/24/2020 115/80 Stable. Qdsmeg8912/07/20172146Uquvdaqovkxwhr04/19/2018 Overview (04/25/2025): Last Assessment & Plan: Assessment: stable on medication Essential orkobq5210/27/2017Glenohumeral arthritis, left10/26/2017Arthritis of knee04/27/2017COPD with chronic fokjlxywuk55/28/2017 Overview (03/20/2025): Last Assessment & Plan: Assessment: Managed with inhalers No supplemental oxygen use RA 04/24/20 1148 SpO2: 97% Stable. Type 2 diabetes kzegiiyk12/28/2017Chronic pain sopvfvmp31/28/2017 Overview (04/25/2025): Last Assessment & Plan: Assessment: lower back pain s/p SCS 02/2018 Monitored by Pain Management ( 04/03/2020) Postlaminectomy syndrome of lumbar viityz3606/30/20167855Loowmlznpyv40/22/2010 Frequency of /08/2010Slow urinary tbzlue9203/26/2010Impotence of organic xzoaej2410/08/2007Malignant neoplasm of skin of lip05/11/2007 Overview (04/25/2025): Last Assessment & Plan: Assessment: s/p removal Psychosexual dysfunction, rrninxvcwcf64/13/2006Urinary vwykoqx7307/31/2006Brachial neuritis or bcjwielpgae76/30/2004Displacement of cervical intervertebral disc without eqeyqustdi20/30/2004Displacement of thoracic intervertebral disc without fpoiqlqjdj66/19/2004 Encounters DateTypeDepartmentCare LxojGijfipdogbw80/07/2025 3:[address] [facility] [place] [address] [place] [phone] Encounter for implantable defibrillator reprogramming or check07/18/2025Orders Only [facility] [address] [place], [place] [address] [phone] Antonio Lim MD 07/07/2025Telephone [facility] Surgery Clinic [address] [place], [place] [address] [phone] Santa Bean MA 07/06/2025 11:50 AM EDTAncillary Procedure [facility] [address] [place], [place] [address] [address] Adjustment and management of cardiac ijldcbpzx29/18/2025 10:05 AM EDTLab [facility] Outpatient Draw Station [address] [place] [phone] Obesity due to excess calories with serious comorbidity, unspecified class; Unintended weight loss; Iron deficiency anemia, unspecified iron deficiency anemia type; Vitamin D deficiency; Hyperglycemia; Other chronic pain; Chronic gastric ulcer with doeynatxbo89/18/2025 9:30 AM EDTOffice Visit [facility] [address] [place] [address] Roberth Cowan MD Chronic gastric ulcer with hemorrhage (Primary Dx); Obesity due to excess calories with serious comorbidity, unspecified class; Unintended weight loss; Iron deficiency anemia, unspecified iron deficiency anemia type; Vitamin D deficiency; Other chronic pain; Xhzmdrrhxkfzu27/03/2025Telephone [facility] [place] [address] [facility] [place] [address] Jennifer Sanchez LPN 06/16/2025 8:19 PM EDTAnesthesia Event [facility] Main Operating Room [address] [place] [address] Mohamud Wagner MD Meisler, Adam, MD 06/16/2025 8:00 PM EDT - 06/16/2025 9:45 PM EDTSurgery [facility] Main Operating Room [address] [place] [address] Roberth Cowan MD DIAGNOSTIC LAPAROSCOPY CONVERTED TO OPEN [[id number] (CPT??)]06/16/2025 5:06 PM EDT Anesthesia Event [facility] Main Operating Room [address] [place] [address] Cara Mcclure MD Altenhof, Brent M., MD 06/16/20257494Qduqjj59/28/2025 4:06 PM EDTAnesthesia Event [facility] Main Operating Room [address] [place] [address] Leda Pitts MD Swanson, Megan R, CAA 06/15/2025 3:45 PM EDT - 06/15/2025 5:15 PM EDTSurgery [facility] Main Operating Room [address] [place] [address] Rosaura Juarez MD SELECTIVE CATHETERIZATION AND ANGIOGRAM OF CELIAC AND SMA - ABDOMINAL ANGIOGRAM [[id number] (CPT??)]06/15/2025 5:32 AM EDT - 06/28/2025 12:24 PM EDTHospital Encounter [facility] 5ABCD Surgery Stepdown [address] [place] [address] Luciano Woodard MD Cherry-Bukowiec, Jill, MD Hsu, Justin, MD Rehman, Shahnaz, MD Shock (CMS/HCC) (Primary Dx); Hematemesis, unspecified whether nausea present; Marginal ulcer; Arthritis of knee; Arthritis; Urinary tract infection without hematuria, site unspecified Discharge Disposition: Inpatient Rehab Hospital (62)06/15/20259702Oozlvv78/25/2025 2:40 PM EDTFollow-Up [facility] [address] [place] [address] Jac Tidwell CNP Encounter for postoperative wound check (Primary Dx); Sinus pause; Syncope and collapse; S/P placement of cardiac aoycomizf36/19/2025Orders Only [facility] [address] [place] [address] ProviderJameson MD 06/05/2025 1:00 PM EDT - 06/05/2025 2:00 PM EDTSurgery [facility] [address] [place] [address] Antonio Lim MD Implant PPM [[id number]]06/05/2025 11:10 AM EDT - 06/05/2025 5:48 PM EDTHospital Encounter [facility] [address] [place] [address] Antonio Lim MD UTI symptoms (Primary Dx); Sinus pause; Shoulder arthritis Discharge Disposition: Home or Self Care (01)06/05/2025Orders Only [facility] [address] [place] [address] Vanessa Vu RN Presence of cardiac pacemaker (Primary Dx)06/05/20250580Mwdhbs79/15/2025Telephone [facility] [address] [place] [address] Osiris Owens MA 05/30/2025Orders Only [place] [address] [place] [address] Provider, MD Jameson from Last 3 Months Family History Medical HistoryRelationNameCommentsCancerBrother 1Dale Raquel jrCancerBrother 2 Sonny Weyer jrDiabetes type IIFatherDale WeyerHypertensionFatherDale WeyerHeart attackMaternal GrandfatherAsthmaMotherBettWeyerDepressionMotherBettWeyer HypertensionMotherBettWeyerHypotensionMotherBettWeyerKidney diseaseMother BettWeyerHeart attackMother's BrotherRelationNameStatusCommentsBrother 1Dale Weyer jrAliveBrother 2Dale Weyer jrAliveFatherDale WeyerAliveMaternal GrandfatherMotherBettWeyerAliveMother's Brother Social History Tobacco UseTypesPacks/DayYears UsedDateSmoking Tobacco: HfukwxQxlzknzneo497.6 01/13/1978 - 08/19/2022mokeless Tobacco: NeverAlcohol UseStandard Drinks/Week CommentsNever0 (1 standard drink = 0.6 oz pure alcohol)[facility] UtilitiesAnswerDate RecordedIn the past 12 months has the [employer], gas, oil, or water [employer] [place] threatened to shut off services in your home?No06/15/2025Humiliation, Afraid, Rape, and Kick questionnaireAnswerDate RecordedWithin the last year, have you been afraid of your partner or ex-partner?No07/06/2025Emotionally AbusedNot on file07/06/2025Physically AbusedNot on file07/06/2025Sexually AbusedNot on file 07/06/2025Overall Financial Resource Strain (CARDIA)AnswerDate RecordedHow hard is it for you to pay for the very basics like food, housing, medical care, and heating?Not hard at all06/15/2025PHQ-2AnswerDate RecordedPatient Health Questionnaire-2 Peadu047TransportationAnswerDate RecordedIn the past 12 months, has lack of transportation kept you from medical appointments or from getting medications?No06/15/2025Lack of Transportation (Non-Medical)Not on file 06/15/2025Housing Stability Vital SignAnswerDate RecordedIn the last 12 months, was there a time when you were not able to pay the mortgage or rent on time?No 08/28/2025Number of Times Moved in the Last YearNot on file06/15/2025t any time in the past 12 months, were you homeless or living in a mcfp (including now)?No06/15/2025Hunger Vital SignAnswerDate RecordedWithin the past 12 months, you worried that your food would run out before you got the money to buymore. Never true06/15/2025Ran Out of Food in the Last YearNot on file06/15/2025 CommentsUnknownSex and Gender InformationValueDate RecordedSex Assigned at BirthChoose not to zhejxqwv13/18/2025 11:10 AM EDTLegal FwbKljh0704/16/2022 10:07 PM EDTGender IdentityChoose not to ixjasvot89/18/2025 11:10 AM EDTSexual OrientationChoose not to hjvwtihl32/18/2025 11:10 AM EDT Last Filed Vital Signs Vital SignReadingTime TakenCommentsBlood Ljizpvqe666/7009 9:13 AM EDT Fuqbb932707/06/2025 9:13 AM RVBPyrtyxzyqaj33.5 ??C (97.7 ??F)07/06/2025 9:13 AM EDTRespiratory Xxtc644406/28/2025 11:35 AM EDTOxygen Fvapbabuiq93%07/06/2025 9:13 AM EDTInhaled Oxygen Concentration--Ofcech448 kg (246 lb 14.6 oz)06/28/2025 4:18 AM WECGvxqny727.8 cm (5' 10 )07/06/2025 9:13 AM EDTBody Mass Index35.43 06/15/2025 6:12 AM EDT Plan of Treatment DateTypeDepartmentCare Team (Latest Contact Info)Slruyzqcjkp03/04/2025 11:[address] [facility] [address] [place] [address] 09/07/2025 1:30 PM ESTFollow-Up [facility] Surgery Clinic [address] [place] [address] Roberth Cowan MD [address] [place] [address] Health MaintenanceDue DateLast DoneCommentsCT Dmvebsxbnlli1958Diabetes: Hemoglobin A1C1958FIT-DNA1958FIT1958FOBT1958Medicare Annual Wellness (AWV)1958Xstssincdglwg1958Diabetes: Retinopathy Cdwyiahyc06/25/1968Diabetes: Urine Protein Pjyisugwn02/25/1977Mammogram 1998Zoster Vaccines (2 of 2)COVID-19 Vaccine ( season), 01/09/2021, 12/13/2020Influenza Vaccine (#1)/10/2021, 09/02/2022, 10/15/2021, Additional history exists Depression Fabkdmfdq11/Fall Risk Xlcdrtrqq78/ Ufmrandirgo45Colorectal Cancer Fmiqakoka27/24/2026Pneumococcal Vaccine: 50+ Years (3 of 3 - PCV20 or PCV21)/12/2022, 11/15/2018, 08/13/1995Adult Rhyrlea92, 10/22/2015HIB VaccinesAged OutNo longer eligible based on patient's age to complete this topicHPV VaccinesAged OutNo longer eligible based on patient's age to complete this topicIPV Vaccines Aged OutNo longer eligible based on patient's age to complete this topic Meningococcal B VaccineAged OutNo longer eligible based on patient's age to complete this topicMeningococcal VaccineAged OutNo longer eligible based on patient's age to complete this topicRotavirus VaccinesAged OutNo longer eligible based on patient's age to complete this topic Medical Devices ImplantedTypeAreaManufacturerDevice IdentifierShelf Expiration DateModel / Lili / [employer] Pham S 60 - [id number] - [id number] Implanted:Qty: 1 on 06/05/2025 [facility]: [id number] / [id number] / Description:[employer] Esquivel S 53 - [id number] - [id number] Implanted:Qty: 1 on 06/05/2025 by [facility]: [id number] / [id number] / Pacemaker,Amvia Edge Dr-T - [id number] - [id number] Implanted:Qty: 1 on 06/05/2025 by [facility]PaceiakerN/A: [id number] / [id number] / Procedures Procedure NamePriorityDate/TimeAssociated DiagnosisCommentsCARDIAC DEVICE CHECK - IN CLINIC - PACEMAKER DUAL CHAMBER W/ LYHMLyqmxfr70/08/2025 4:13 PM EDT Encounter for implantable defibrillator reprogramming or check CARDIAC DEVICE CHECK CHECK - MJLPWIXdhcmff13/02/2025 2:47 PM EDT Adjustment and management of cardiac pacemaker CARDIAC DEVICE CHECK - REMOTE - EBZNZOJRLGaodvxd07/30/2025 12:00 AM EDTCBC WITH AUTO EZOVCCVXIGDWYwemngj17/18/2025 10:09 AM EDT Obesity due to excess calories with serious comorbidity, unspecified class Unintended weight loss Iron deficiency anemia, unspecified iron deficiency anemia type Vitamin D deficiency Other chronic pain Hyperglycemia IJAKRMLQWFRgjuied88/18/2025 10:09 AM EDT Obesity due to excess calories with serious comorbidity, unspecified class Chronic gastric ulcer with hemorrhage GRVVBGFWIWgkdlsl69/18/2025 10:09 AM EDT Obesity due to excess calories with serious comorbidity, unspecified class Chronic gastric ulcer with hemorrhage IRON AND DLTJUwnytfn59/18/2025 10:09 AM EDT Obesity due to excess calories with serious comorbidity, unspecified class Unintended weight loss Iron deficiency anemia, unspecified iron deficiency anemia type Vitamin D deficiency FOLATE QHJSgpqmch37/18/2025 10:09 AM EDT Obesity due to excess calories with serious comorbidity, unspecified class Unintended weight loss Iron deficiency anemia, unspecified iron deficiency anemia type Vitamin D deficiency ODLYYSJIBkrjqje40/18/2025 10:09 AM EDT Obesity due to excess calories with serious comorbidity, unspecified class Unintended weight loss Iron deficiency anemia, unspecified iron deficiency anemia type Vitamin D deficiency COPPER, AZKJWFmikzhi06/18/2025 10:09 AM EDT Obesity due to excess calories with serious comorbidity, unspecified class Unintended weight loss Iron deficiency anemia, unspecified iron deficiency anemia type Vitamin D deficiency COMPREHENSIVE METABOLIC HSQTJAimirnm83/18/2025 10:09 AM EDT Obesity due to excess calories with serious comorbidity, unspecified class Unintended weight loss Iron deficiency anemia, unspecified iron deficiency anemia type Vitamin D deficiency Other chronic pain Hyperglycemia BUKOJmcotbn56/18/2025 10:09 AM EDT Obesity due to excess calories with serious comorbidity, unspecified class Unintended weight loss Iron deficiency anemia, unspecified iron deficiency anemia type Vitamin D deficiency CBC AND HCHBFFMGFFARBojggna41/18/2025 10:09 AM EDT Obesity due to excess calories with serious comorbidity, unspecified class Unintended weight loss Iron deficiency anemia, unspecified iron deficiency anemia type Vitamin D deficiency Other chronic pain Hyperglycemia VITAMIN D 25 DIZKYEDHqwdjpr40/18/2025 10:09 AM EDT Obesity due to excess calories with serious comorbidity, unspecified class Unintended weight loss Iron deficiency anemia, unspecified iron deficiency anemia type Vitamin D deficiency VITAMIN Y3Sopchvp16/18/2025 10:09 AM EDT Obesity due to excess calories with serious comorbidity, unspecified class Unintended weight loss Iron deficiency anemia, unspecified iron deficiency anemia type Vitamin D deficiency VITAMIN G64Dkrgytg67/18/2025 10:09 AM EDT Obesity due to excess calories with serious comorbidity, unspecified class Unintended weight loss Iron deficiency anemia, unspecified iron deficiency anemia type Vitamin D deficiency VITAMIN X2Dlbldbq42/18/2025 10:09 AM EDT Obesity due to excess calories with serious comorbidity, unspecified class Unintended weight loss Iron deficiency anemia, unspecified iron deficiency anemia type Vitamin D deficiency VITAMIN TMdoxvvt98/18/2025 10:09 AM EDT Obesity due to excess calories with serious comorbidity, unspecified class Unintended weight loss Iron deficiency anemia, unspecified iron deficiency anemia type Vitamin D deficiency DVBXqhlxti87/18/2025 10:09 AM EDT Obesity due to excess calories with serious comorbidity, unspecified class Unintended weight loss Iron deficiency anemia, unspecified iron deficiency anemia type Vitamin D deficiency Hyperglycemia NIACIN (VITAMIN B3)Pxvvhcm8707/06/2025 10:09 AM EDT Obesity due to excess calories with serious comorbidity, unspecified class Unintended weight loss Iron deficiency anemia, unspecified iron deficiency anemia type Vitamin D deficiency VITAMIN D9Iagytrq08/18/2025 10:09 AM EDT Obesity due to excess calories with serious comorbidity, unspecified class Unintended weight loss Iron deficiency anemia, unspecified iron deficiency anemia type Vitamin D deficiency POCT GLUCOSE METER UNSOLICITED YTYHYIYAaggdkd85/10/2025 11:32 AM EDT POCT GLUCOSE METER UNSOLICITED NEJLIYOIguuoop20/10/2025 5:05 AM EDT CBC WITH AUTO UGMRMFWAAXOKXbesmdf40/10/2025 3:22 AM EDT BASIC METABOLIC MGYUVDjdysfb52/10/2025 3:22 AM EDT INJWGTYKLXAlpfoqy00/10/2025 3:22 AM EDT ZGBDDKHLHYdkjurw62/10/2025 3:22 AM EDT CBC AND SRUYMHXIAMSYYyhxnqg09/10/2025 3:22 AM EDT POCT GLUCOSE METER UNSOLICITED CUWXDHTXqhkqhw59/09/2025 10:57 PM EDT POCT GLUCOSE METER UNSOLICITED PPJQUHSWoewmun86/09/2025 5:21 PM EDT POCT GLUCOSE METER UNSOLICITED KLYTEVABgovcga13/09/2025 11:28 AM EDT RESPIRATORY ASSESS AND TREAT WGWKAGGVEsfotth34/09/2025 8:00 AM EDTPOCT GLUCOSE METER UNSOLICITED TWFQRKBYlaoyzk01/09/2025 6:53 AM EDT POCT GLUCOSE METER UNSOLICITED CKWIFXUHjfdzqe36/09/2025 6:00 AM EDT CBC WITH AUTO IQSDHHCYVMXVLtoepek82/09/2025 3:37 AM EDT BASIC METABOLIC PFHTGDpfaxgj48/09/2025 3:37 AM EDT MHHIIWPEYIWhvwxlp74/09/2025 3:37 AM EDT WRYAPSWKENikdcfz68/09/2025 3:37 AM EDT CBC AND MECYMIXKCXZWCvadchq23/09/2025 3:37 AM EDT POCT GLUCOSE METER UNSOLICITED KWHSCZMJvyfalf64/08/2025 11:18 PM EDT POCT GLUCOSE METER UNSOLICITED XVOXGFHEhbxegm16/08/2025 5:55 PM EDT POCT GLUCOSE METER UNSOLICITED COXHZQSLsiivao55/08/2025 11:43 AM EDT VASC US LOWER EXTREMITY VENOUS DUPLEX ZVYENETPURGMJ42/08/2025 10:40 AM EDT RESPIRATORY ASSESS AND TREAT RZZZRLDFXrusiti05/08/2025 8:00 AM EDTPOCT GLUCOSE METER UNSOLICITED RBWZIFZOttzozr75/08/2025 5:25 AM EDT CBC WITH AUTO QWHIDBRICYUHHjxicrl81/08/2025 3:25 AM EDT BASIC METABOLIC HXDSRSwmispz58/08/2025 3:25 AM EDT OMFWOKFMCOSikhbag21/08/2025 3:25 AM EDT OFUUGRCGPGxoaxfu47/08/2025 3:25 AM EDT CBC AND IWCXANBQGFIPUqfknxe03/08/2025 3:25 AM EDT POCT GLUCOSE METER UNSOLICITED ZIEKGSPOwzkyeb39/07/2025 11:38 PM EDT POCT GLUCOSE METER UNSOLICITED JFCFUEYNujypkz72/07/2025 5:29 PM EDT POCT GLUCOSE METER UNSOLICITED SIWQKEISkkhpcl00/07/2025 12:27 PM EDT POCT GLUCOSE METER UNSOLICITED FQHSQJUQxlwaco35/07/2025 10:08 AM EDT RESPIRATORY ASSESS AND TREAT TAMQVRVKHstgznn30/07/2025 8:00 AM EDTPOCT GLUCOSE METER UNSOLICITED FMZHCSFAdfmyrw89/07/2025 6:00 AM EDT BASIC METABOLIC GKMYMKnshzrv43/07/2025 4:29 AM EDT CBC WITH AUTO NGBSBCZAXDKNFmpdkwo39/07/2025 4:29 AM EDT HFJWNYTXLHHcwuuuc14/07/2025 4:29 AM EDT ENGMBMDAMFabnqsw47/07/2025 4:29 AM EDT CBC AND HAOMZNQPYBYJPhkjgdm88/07/2025 4:29 AM EDT POCT GLUCOSE METER UNSOLICITED CIGZZXVZzsoscp03/06/2025 5:14 PM EDT POCT GLUCOSE METER UNSOLICITED LSIFWJKSmopxvi65/06/2025 2:41 PM EDT POCT GLUCOSE METER UNSOLICITED MUMWAKISxrtqpe24/06/2025 11:24 AM EDT RESPIRATORY ASSESS AND TREAT JBNJLWUMBdlfcur77/06/2025 8:00 AM EDTPOCT GLUCOSE METER UNSOLICITED FLRNSDAXwvnddx76/06/2025 5:53 AM EDT CBC WITH AUTO GAFUFWHWFFHOMffwivl66/06/2025 5:04 AM EDT FZEEPCTMUSRqpcsjh71/06/2025 5:04 AM EDT ZLIMLPSDMZxgirmq55/06/2025 5:04 AM EDT CBC AND VDQFWBULQQEIUftvwpj73/06/2025 5:04 AM EDT BASIC METABOLIC BEKPVDlqshne53/06/2025 5:04 AM EDT POCT GLUCOSE METER UNSOLICITED NPOUAEUTrcgzze76/06/2025 12:23 AM EDT POCT GLUCOSE METER UNSOLICITED VSXHDQYBmtmwgm31/05/2025 5:05 PM EDT POCT GLUCOSE METER UNSOLICITED RLIPVVEOliohbg81/05/2025 11:43 AM EDT RESPIRATORY ASSESS AND TREAT RBIINJTHFlepzxz55/05/2025 8:00 AM EDTCBC WITH AUTO HFZSJWVNNQNLCjsdewt16/05/2025 7:59 AM EDT MCJEQWYPCGZreawwd12/05/2025 7:59 AM EDT WPDCNDCOAJntrkaw39/05/2025 7:59 AM EDT BASIC METABOLIC QWELCDwfybsy98/05/2025 7:59 AM EDT URINALYSIS EECXSPRPWKGAUUO80/05/2025 7:45 AM EDT ZOUGNTYCZQTJVN16/05/2025 7:45 AM EDT CBC AND OGYRKAUALOBQGpkapeh14/05/2025 5:55 AM EDT POCT GLUCOSE METER UNSOLICITED TKAVOVKCyisutl86/05/2025 5:14 AM EDT POCT GLUCOSE METER UNSOLICITED XDOBHGGAlgshsf78/05/2025 12:19 AM EDT URINE AJCSRVNBonsqmz02/04/2025 5:33 PM EDT POCT GLUCOSE METER UNSOLICITED AVCQCODSfyihlf05/04/2025 4:34 PM EDT POCT GLUCOSE METER UNSOLICITED OOBOGPMNzynbfx53/04/2025 12:09 PM EDT RESPIRATORY ASSESS AND TREAT YEPJHAUQDuzoymv94/04/2025 8:00 AM EDTPOCT GLUCOSE METER UNSOLICITED LRZIRDLJumoqdw17/04/2025 5:36 AM EDT PHOSPHORUSAdd-On06/22/2025 3:54 AM EDT CBC WITH AUTO FRHPGZCHRULMCcefbnw54/04/2025 3:54 AM EDT BASIC METABOLIC VKPARKfpwgro52/04/2025 3:54 AM EDT CBC AND JQVNEBUXULIJGyqokoe22/04/2025 3:54 AM EDT POCT GLUCOSE METER UNSOLICITED MKPDXKGWvuxhip78/03/2025 11:32 PM EDT MONITOR EXHALED UF1Cbpcifk58/03/2025 8:00 PM EDTPOCT GLUCOSE METER UNSOLICITED VVQRIKSYdlbmum54/03/2025 6:15 PM EDT POCT GLUCOSE METER UNSOLICITED QKFBJFWNwuwylu53/03/2025 5:21 PM EDT RESPIRATORY ASSESS AND TREAT WYVMDBTXBrmuuqn26/03/2025 5:03 PM EDTRESPIRATORY ASSESS AND TREAT IWUVWNBLJftuhqv70/03/2025 5:03 PM EDTMONITOR EXHALED JG7Zehnuye 06/21/2025 4:00 PM EDTPOCT GLUCOSE METER UNSOLICITED GILCRFDAkawjdt22/03/2025 12:10 PM EDT MONITOR EXHALED EJ7Ltfoomy53/03/2025 12:00 PM EDTBASIC METABOLIC PANELSTAT Add-on06/21/2025 8:54 AM EDT WEKNKOVTKSKEV93/03/2025 8:54 AM EDT MONITOR EXHALED MU0Pmqkhhd93/03/2025 8:00 AM EDTMONITOR EXHALED EW8Etmzeil 06/21/2025 4:00 AM EDTCBC WITH AUTO DIFFERENTIALPending Rdwdrwfdt32/03/2025 3:18 AM EDT CBC AND KIKAXMALLTRIZyvhrhn41/03/2025 3:18 AM EDT PHOSPHORUSPending Elezzaylq29/03/2025 3:18 AM EDT MAGNESIUMPending Cwiyzxyle97/03/2025 3:18 AM EDT BASIC METABOLIC PANELPending Ulqbpfkrw42/03/2025 3:18 AM EDT MONITOR EXHALED MH8Fbksqir76/03/2025 12:00 AM EDTPOCT GLUCOSE METER UNSOLICITED MZWLTMZEmsezbp75/02/2025 10:59 PM EDT MONITOR EXHALED GH8Kpcjdol68/02/2025 8:00 PM EDTPOTASSIUMPending Discharge 06/20/2025 5:56 PM EDT MAGNESIUMPending Qvuiwheat54/02/2025 5:56 PM EDT POCT GLUCOSE METER UNSOLICITED NWYCLFIViwekqj46/02/2025 5:[address] ABDOMEN PELVIS WO IV HFOGTWUWJDMH65/02/2025 4:33 PM EDT MONITOR EXHALED AM4Lfskfqn73/02/2025 4:00 PM EDTFL UPPER GI WITH KUBRoutine 06/20/2025 3:28 PM EDT VASC US LOWER EXTREMITY ARTERIAL DUPLEX QWIVZCSXBImmiwwv47/02/2025 2:28 PM EDT XR CHEST 1 PYODHLWJ08/02/2025 2:09 PM EDT POCT GLUCOSE METER UNSOLICITED GFLADDDRcukwkk81/02/2025 12:37 PM EDT MONITOR EXHALED CY1Feykxag98/02/2025 12:00 PM EDTVASC US UPPER EXTREMITY VENOUS DUPLEX QSGGVMSAI94/02/2025 10:48 AM EDT MONITOR EXHALED IV7Bqkdzkd25/02/2025 8:00 AM EDTPOCT GLUCOSE METER UNSOLICITED WSXNGTXWfnaupo42/02/2025 6:12 AM EDT CBCPending Orkzjggwp53/02/2025 6:09 AM EDT MAGNESIUMPending Bcsrljrsw46/02/2025 6:09 AM EDT BASIC METABOLIC PANELPending Xlahsetyu44/02/2025 6:09 AM EDT MONITOR EXHALED VO7Jfhgjnt35/02/2025 4:00 AM EDTBASIC METABOLIC PANELPending Obnahyuwf15/02/2025 12:40 AM EDT HEMOGLOBIN AND HEMATOCRIT, BLOODPending Syqghpden80/02/2025 12:40 AM EDT POCT GLUCOSE METER UNSOLICITED UUFBKTYJegsxce47/02/2025 12:39 AM EDT MONITOR EXHALED MO3Ekxbpnx88/02/2025 12:00 AM EDTBASIC METABOLIC PANELPending Iybhxqxwq52/01/2025 8:09 PM EDT MONITOR EXHALED TL0Xqundqy19/01/2025 8:00 PM EDTPOCT GLUCOSE METER UNSOLICITED XIHDVKGTlcvflu56/01/2025 5:14 PM EDT MONITOR EXHALED YH4Oimpuuh67/01/2025 4:00 PM EDTHEMOGLOBIN AND HEMATOCRIT, BLOOD Pending Xtjohqifc65/01/2025 3:51 PM EDT POCT GLUCOSE METER UNSOLICITED YUZVUBNCpekpvl00/01/2025 11:54 AM EDT TRANSFUSE RED BLOOD OVTXGLngwhib11/01/2025 8:48 AM EDTMONITOR EXHALED SL6Stdbmlj 06/19/2025 8:00 AM EDTPREPARE THBVtesmwj06/01/2025 7:43 AM EDT PREPARE NASFebojyh11/01/2025 4:13 AM EDT MONITOR EXHALED YS0Tjdswdn87/01/2025 4:00 AM EDTTYPE AND SCREENPending Discharge 06/19/2025 3:46 AM EDT PHOSPHORUSPending Rnpugniju31/01/2025 3:46 AM EDT MAGNESIUMPending Pdvytghsf60/01/2025 3:46 AM EDT BASIC METABOLIC PANELPending Ivbrfxmcv76/01/2025 3:46 AM EDT CBCPending Dqfqaaura50/01/2025 3:46 AM EDT TRIGLYCERIDESPending Sacoagdxx06/01/2025 3:46 AM EDT MONITOR EXHALED AO3Shaeoso47/01/2025 12:00 AM EDTPOCT GLUCOSE METER UNSOLICITED OOPLDXBXvofbjj04/31/2025 11:52 PM EDT ABG UNSOLICITED DZVBRGLJjhirnm29/31/2025 11:35 PM EDT HEMOGLOBIN AND HEMATOCRIT, BLOODPending Qhxwfrici92/31/2025 11:27 PM EDT ABG VAVIKwltmbj11/31/2025 11:15 PM EDTPOCT GLUCOSE METER UNSOLICITED RESULTS Eqseliu5606/18/2025 9:50 PM EDT MONITOR EXHALED VZ0Zksugzn98/31/2025 8:00 PM EDTHEMOGLOBIN AND HEMATOCRIT, BLOOD Pending Cqqbnxhir49/31/2025 5:22 PM EDT POCT GLUCOSE METER UNSOLICITED VPOROOSSfghffz77/31/2025 5:11 PM EDT MONITOR EXHALED MM3Ouufipd09/31/2025 4:00 PM EDTMONITOR EXHALED VM5Cdtrbea 06/18/2025 1:40 PM EDTMONITOR EXHALED IC5Bacwgva89/31/2025 1:40 PM EDTPOCT GLUCOSE METER UNSOLICITED JPZOYPGQcnunzp57/31/2025 11:40 AM EDT POCT GLUCOSE METER UNSOLICITED AXSXBBVLegqsea01/31/2025 8:00 AM EDT PHOSPHORUSPending Zskupslcs95/31/2025 4:50 AM EDT MAGNESIUMPending Hhhbweuvx46/31/2025 4:50 AM EDT BASIC METABOLIC PANELPending Fknvfclfu64/31/2025 4:50 AM EDT CBCPending Lnxluljin65/31/2025 4:50 AM EDT BASIC METABOLIC OJXDSIijyp78/31/2025 12:32 AM EDT HEMOGLOBIN AND HEMATOCRIT, OGUUKWndip27/31/2025 12:32 AM EDT POCT GLUCOSE METER UNSOLICITED RZMJJVQOsxwkrz75/30/2025 11:41 PM EDT POCT GLUCOSE METER UNSOLICITED QTVXHLPCxzbhcx80/30/2025 7:12 PM EDT POCT GLUCOSE METER UNSOLICITED XBOBPQRJkaavdp54/30/2025 5:27 PM EDT FDNCZMYKSLYogcxsu97/30/2025 4:49 PM EDTHEMOGLOBIN AND HEMATOCRIT, BLOODTimed 06/17/2025 3:09 PM EDT BASIC METABOLIC GVARRMamvl25/30/2025 3:09 PM EDT BLOOD FEFEFWPInkqtgg00/30/2025 3:09 PM EDT POCT GLUCOSE METER UNSOLICITED XKIKQJQPppwcnj98/30/2025 11:31 AM EDT HEPATIC FUNCTION PANELAdd-On06/17/2025 10:40 AM EDT BASIC METABOLIC HZSRYLraxy19/30/2025 10:40 AM EDT BLOOD FSBQKFGQmsxmyp08/30/2025 10:40 AM EDT ABG COMPLETE UNSOLICITED OQLVFMDCimzdng62/30/2025 4:02 AM EDT ABG COMPLETE SAYGKrsjukf69/30/2025 3:48 AM EDTLACTIC ACID WITH 4 HOUR REFLEX Bdqkjct9706/17/2025 3:47 AM EDT CMXYDAIWQMWlbllun62/30/2025 3:47 AM EDT ECSYBLEWTEmoukjk72/30/2025 3:47 AM EDT CBC WITH AUTO CBZWKKNMCQJOUkpegol02/30/2025 3:47 AM EDT CBC AND AVWRSMVRKQIOMpalnbj56/30/2025 3:47 AM EDT BASIC METABOLIC IMPMJZuxzp46/30/2025 3:47 AM EDT ABG COMPLETE UNSOLICITED TSWCPJGUuqwgmj13/30/2025 1:51 AM EDT ABG COMPLETE HWLJXlqvxxo38/30/2025 1:49 AM EDTHEPTEM WArzhwuz19/30/2025 12:32 AM EDT INTEM GQvflxac79/30/2025 12:32 AM EDT EXTEM SPjncesl55/30/2025 12:32 AM EDT FIBTEM OGunqlkp58/30/2025 12:32 AM EDT HISTOLOGY - TISSUE LYMIZlwsrpg10/30/2025 12:17 AM EDT Hematemesis, unspecified whether nausea present Marginal ulcer ABG COMPLETE UNSOLICITED RMGSYRCWpfstgx30/29/2025 11:20 PM EDT ABG COMPLETE AWBQXcmozol49/29/2025 11:18 PM EDTABG COMPLETE UNSOLICITED RESULTS Wyrxprw5306/16/2025 9:54 PM EDT ABG COMPLETE JPICAcupzga92/29/2025 9:53 PM EDTPREPARE FRESH FROZEN PLASMASTAT 06/16/2025 8:10 PM EDT TRANSFUSE FRESH FROZEN BZJPFNFNGA87/29/2025 8:10 PM EDTLYSIS, ADHESIONS 06/16/2025 7:43 PM EDT Hematemesis, unspecified whether nausea present Marginal ulcer REVERSAL, GASTRIC OMIHFH2406/16/2025 7:43 PM EDT Hematemesis, unspecified whether nausea present Marginal ulcer TX ESOPHAGOGASTRODUODENOSCOPY TRANSORAL UZTCULZLSP01/29/2025 7:43 PM EDT Hematemesis, unspecified whether nausea present Marginal ulcer TX EXPLORATORY LAPAROTOMY CELIOTOMY W/WO BIOPSY SPX06/16/2025 7:43 PM EDT Hematemesis, unspecified whether nausea present Marginal ulcer TX LAPS ABD PRTM&OMENTUM DX W/WO SPEC BR/WA SPX06/16/2025 7:43 PM EDT Hematemesis, unspecified whether nausea present Marginal ulcer QZYVnaqysj66/29/2025 6:26 PM EDT Hematemesis, unspecified whether nausea present ABG COMPLETE UNSOLICITED YRQELENUffvlvm47/29/2025 6:13 PM EDT TRANSFUSE RED BLOOD VFWSHECOA29/29/2025 5:35 PM EDTABG COMPLETE POCTSTAT 06/16/2025 5:17 PM EDTPOCT GLUCOSE METER UNSOLICITED USWDDYLHcxorcp37/29/2025 3:46 PM EDT PRU QLSDIflzvty73/29/2025 3:23 PM EDT HEMOGLOBIN AND HEMATOCRIT, PISWVLayzcxn08/29/2025 2:57 PM EDT PRU TEST BTTRABMK46/29/2025 2:57 PM EDTPOCT GLUCOSE METER UNSOLICITED RESULTS Clojkcc9306/16/2025 11:46 AM EDT PROTIME-OCMYhsgmqw13/29/2025 10:49 AM EDT HEMOGLOBIN AND HEMATOCRIT, BXIEQGdjgv69/29/2025 10:49 AM EDT BASIC METABOLIC KLGOHBsvgi61/29/2025 10:49 AM EDT HEMOGLOBIN AND HEMATOCRIT, BCQFEZbkob23/29/2025 8:13 AM EDT BASIC METABOLIC VQYCIWiknx03/29/2025 8:13 AM EDT TRANSFUSE RED BLOOD TWOOMJogdufg62/29/2025 8:06 AM EDTRESPIRATORY ASSESS AND TREAT AXCMQNDASrjottd06/29/2025 8:00 AM EDTPOCT GLUCOSE METER UNSOLICITED MQQDMZVNvovbqa48/29/2025 7:50 AM EDT ABG COMPLETE UNSOLICITED LVHDVBGKyoyshq76/29/2025 6:03 AM EDT POCT GLUCOSE METER UNSOLICITED MOXVRHTTbwttnj03/29/2025 5:58 AM EDT CBC WITH AUTO QFDVBJSHKUPIGqzvkme75/29/2025 5:54 AM EDT CBC AND RYLZSBGRDKALHssutzt06/29/2025 5:54 AM EDT ABG CYHCNomtyts03/29/2025 4:00 AM EDTPOCT GLUCOSE METER UNSOLICITED RESULTS Ohqgkig7606/15/2025 11:29 PM EDT DGDCYCMLXIwsenie36/28/2025 11:25 PM EDT HEMOGLOBIN AND HEMATOCRIT, LHRCNBdkcs25/28/2025 11:25 PM EDT BASIC METABOLIC PJRBSQqaij35/28/2025 11:25 PM EDT XR CHEST 1 YEEYBXNW20/28/2025 7:20 PM EDT PROTIME-KHBBQLJ4706/15/2025 6:36 PM EDT HEMOGLOBIN AND HEMATOCRIT, NUENRAblvt40/28/2025 6:36 PM EDT BASIC METABOLIC IBMULJlkmz13/28/2025 6:36 PM EDT ABDOMINAL LRYYUVYQLNnjhfya14/28/2025 5:18 PM EDT Hematemesis, unspecified whether nausea present ABG COMPLETE UNSOLICITED RLOLVYXNmjgfhf40/28/2025 4:34 PM EDT ABG COMPLETE XMQGSnqjtuf71/28/2025 4:29 PM EDTTRANSFUSE RED BLOOD CELLSRoutine 06/15/2025 4:24 PM EDTANESTHESIA PERIPHERAL IV MHKGSQBTCFfceiml43/28/2025 4:19 PM EDT ANESTHESIA ARTERIAL LINE BEKZJBNINNjarcha73/28/2025 4:15 PM EDT SWBIelskhe33/28/2025 3:14 PM EDT Hematemesis, unspecified whether nausea present RESPIRATORY ASSESS AND TREAT CLVDOUVSWgbzxoc96/28/2025 2:56 PM EDTRESPIRATORY ASSESS AND TREAT APEMJSOMBkwibal85/28/2025 2:56 PM EDTABG OJENAoattfs08/28/2025 2:56 PM EDTPOCT GLUCOSE METER UNSOLICITED JFQPQOQNtqameo23/28/2025 1:02 PM EDT HEMOGLOBIN AND HEMATOCRIT, NIJBZPSON03/28/2025 12:22 PM EDT CTA ABDOMEN PELVIS W IV JJVVCBDPSsiprxq67/28/2025 10:28 AM EDT PREPARE VARWVIG3006/15/2025 6:48 AM EDT PREPARE KZVKJTI5806/15/2025 6:48 AM EDT PREPARE JLOIewuvvn31/28/2025 6:48 AM EDT TRIGLYCERIDESAdd-On06/15/2025 6:28 AM EDT PHOSPHORUSAdd-On06/15/2025 6:28 AM EDT MAGNESIUMAdd-On06/15/2025 6:28 AM EDT CBC WITH AUTO EHTAXYQONUEESfspyib11/28/2025 6:28 AM EDT BASIC METABOLIC DBPTPCazxu41/28/2025 6:28 AM EDT TYPE AND DCAIUIKpvzyos10/28/2025 6:28 AM EDT CBC AND FDPKOHEGHRGGNgwaqlw80/28/2025 6:28 AM EDT XR CHEST 2 IHYMAWsbavow94/19/2025 1:48 PM EDTECG 12-EADSSecccgd25/18/2025 4:29 PM EDT IMPLANT TDPCgeznwa90/18/2025 3:52 PM EDT Sinus pause ECG 12-FCRSFbuqgoc85/18/2025 11:46 AM EDT CARDIAC EVENT OAMCXXPOfpazfc83/23/2025 4:14 PM EDTfrom Last 3 Months Results * CARDIAC DEVICE CHECK - IN CLINIC - PACEMAKER DUAL CHAMBER W/ PROG (07/26/2025 4:13 PM EDT)Anatomical RegionLateralityModalityOtherSpecimen (Source) Anatomical Location / LateralityCollection Method / VolumeCollection Time Received Time Narrative 07/31/2025 9:46 AM EDT Normal device function Authorizing ProviderResult TypeResult StatusM[facility] Hospital IMPLANTABLE CARDIAC DEVICE PROCEDURESFinal Result * CARDIAC DEVICE CHECK - REMOTE - PACEMAKER (07/20/2025 2:47 PM EDT)Specimen (Source)Anatomical Location / LateralityCollection Method / VolumeCollection TimeReceived Time Narrative Authorizing ProviderResult TypeResult StatusM[facility] Hospital IMPLANTABLE CARDIAC DEVICE PROCEDURESFinal ResultPerforming OrganizationAddressCity/State/ZIP Code Phone Number CPACS * Cardiac device check - Remote pacemaker (07/18/2025 12:00 AM EDT)Anatomical RegionLateralityModalityOtherSpecimen (Source)Anatomical Location / Laterality Collection Method / VolumeCollection TimeReceived Time07/18/2025 Narrative Authorizing ProviderResult TypeResult StatusPaul Raphael MDCV IMPLANTABLE CARDIAC DEVICE PROCEDURESFinal Result * (ABNORMAL) CBC auto differential (07/06/2025 10:09 AM EDT) Only the most recent of12 resultswithin the time period is included. ComponentValueRef RangeTest MethodAnalysis TimePerformed AtPathologist Signature Auto [id number] - 10.60 10*3/uL07/06/2025 1:[address] [facility] ([employer] RBC4.083.80 - 5.70 10*6/uL07/06/2025 1:[address] [facility] ([employer] Aatuvacmnq65.9(L)12.0 - 17.0 g/dL07/06/2025 1:[address] [facility] ([employer]Jdglelphks03.436.0 - 50.0 %07/06/2025 1:[address] [facility] ([employer]MCV94.182.0 - 98.0 fL07/06/2025 1:[address] [facility] ([employer]MCH 29.227.0 - 33.0 pg07/06/2025 1:[address] [facility] ([employer]MCHC31.0(L) 32.0 - 35.0 g/dL07/06/2025 1:[address] [facility] ([employer]RDW16.1(H)11.5 - 15.0 %07/06/2025 1:[address] [facility] ([employer]Neutrophils %65.140.0 - 72.0 %07/06/2025 1:[address] [facility] ([employer]Lymphocytes %22.020.0 - 45.0 %07/06/2025 1:[address] [facility] ([employer]Monocytes %9.35.0 - 12.0 % 07/06/2025 1:15 PM [facility])Eosinophils %3.20.0 - 6.0 % 07/06/2025 1:15 PM [facility])Basophils %0.00.0 - 1.0 % 07/06/2025 1:15 PM [facility])Neutrophils Absolute3.641.60 - 7.60 10*3/07/06/2025 1:15 PM [facility])Lymphocytes Absolute 1.231.20 - 4.00 10*3/07/06/2025 1:15 PM [facility])Monocytes Absolute0.520.10 - 1.00 10*3/07/06/2025 1:15 PM [facility]) Eosinophils Absolute0.180.00 - 0.50 10*3/07/06/2025 1:15 PM [facility])Basophils Absolute0.000.00 - 0.20 10*3/07/06/2025 1:15 PM [facility])Kilefzuhx342(L)150 - 400 10*3/07/06/2025 1:15 PM [facility])nRBC %0.00 %07/06/2025 1:15 PM [facility])Immature Granulocytes %0.40.0 - 1.0 %07/06/2025 1:15 PM [facility])Immature Granulocytes Absolute0.020.00 - 0.20 10*3/07/06/2025 1:15 PM [facility])Immature Platelet Fraction %13.2(H)0.8 - 6.3 %07/06/2025 1:15 PM [facility])Specimen (Source)Anatomical Location / LateralityCollection Method / VolumeCollection TimeReceived Time BloodVenous blood specimen / UnknownVenipuncture / Rxrryxm9507/06/2025 10:09 AM EDT07/06/2025 10:48 AM EDT Narrative Authorizing ProviderResult TypeResult StatusJustin Cowan MDLAB BLOOD ORDERABLES Final ResultPerforming OrganizationAddressCity/State/ZIP CodePhone Number [facility] ([facility]) [address] [place] [address] * Iron and TIBC (07/06/2025 10:09 AM EDT)ComponentValueRef RangeTest Method Analysis TimePerformed AtPathologist JvcuuuubqYrca7072 - 212 ug/dL07/06/2025 11:[address] [facility] ([facility])[id number] - 450 ug/dL07/06/2025 11:[address] [facility] ([facility])Iron Lqoxbrlloj7175 - 50 %07/06/2025 11:[address] [facility] ([facility])VPNA994.0155.0 - 355.0 ug/dL07/06/2025 11:[address] [facility] ([facility])Specimen (Source)Anatomical Location / Laterality Collection Method / VolumeCollection TimeReceived TimeBloodVenous blood specimen / UnknownVenipuncture / Dnjsthq6307/06/2025 10:09 AM EDT07/06/2025 10:43 AM EDT Narrative Authorizing ProviderResult TypeResult StatusJustin [facility] MDLAB BLOOD ORDERABLES Final ResultPerforming OrganizationAddressCity/State/ZIP CodePhone Number [facility] ([facility]) [address] [place] [address] * Copper, serum (07/06/2025 10:09 AM EDT)ComponentValueRef RangeTest Method Analysis TimePerformed AtPathologist NcvzeydqxTfekym44.570.0 - 140.0 ug/dL 07/08/2025 6:26 AM [facility] ([facility])Comment: INTERPRETIVE INFORMATION: Copper, Serum or Plasma Elevated results may be due to skin or collection-related contamination, including the use of a noncertified metal-free collection/transport tube. If contamination concerns exist due to elevated levels of serum/plasma copper, confirmation with a second specimen collected in a certified metal-free tube is recommended. Serum copper may be elevated with infection, inflammation, stress, and copper supplementation. In females, elevated copper may also be caused by oral contraceptives and (concentrations may be elevated up to 3 times normal during the third trimester). This test was developed and its performance characteristics determined by [employer]. It has not been cleared or approved by the [place] Food and Drug Administration. This test was performed in a CLIA certified laboratory and is intended for clinical purposes. Performed By: [facility] [address] [place] [address] Scrap Crane Operator: Calin Cui MD, PhD CLIA Number: [id number] Specimen (Source)Anatomical Location / LateralityCollection Method / Volume Collection TimeReceived TimeBloodVenous blood specimen / UnknownVenipuncture / Kurdzbj9607/06/2025 10:09 AM EDT07/06/2025 10:43 AM EDT Narrative Authorizing ProviderResult TypeResult StatusJustin Cowan MDLAB BLOOD ORDERABLES Final ResultPerforming OrganizationAddressCity/State/ZIP CodePhone Number [facility] ([place]) [address] [place] [address] * Zinc (07/06/2025 10:09 AM EDT)ComponentValueRef RangeTest MethodAnalysis Time Performed AtPathologist KizauxvkoWnsq16.960.0 - 120.0 ug/dL07/08/2025 6:28 AM EDTARUP [facility] ([place])Comment: INTERPRETIVE INFORMATION: Zinc, Serum or Plasma Elevated results may be due to skin or collection-related contamination, including the use of a noncertified metal-free collection/transport tube. If contamination concerns exist due to elevated levels of serum/plasma zinc, confirmation with a second specimen collected in a certified metal-free tube is recommended. Circulating zinc concentrations are dependent on albumin status and are depressed with malnutrition. ??Zinc may also be lowered with infection, inflammation, stress, oral contraceptives, and . ??Zinc may be elevated with zinc supplementation or fasting. ??Elevated zinc concentrations may interfere with copper absorption. This test was developed and its performance characteristics determined by [email or web address]. It has not been cleared or approved by the [place] Food and Drug Administration. This test was performed in a CLIA certified laboratory and is intended for clinical purposes. Performed By: [facility] [address] [place], [place] [id number] Scrap Crane Operator: Calin Cui MD, PhD CLIA Number: [id number] Specimen (Source)Anatomical Location / LateralityCollection Method / Volume Collection TimeReceived TimeBloodVenous blood specimen / UnknownVenipuncture / Etevtui2907/06/2025 10:09 AM EDT07/06/2025 10:43 AM EDT Narrative Authorizing ProviderResult TypeResult StatusJustin [facility] BLOOD ORDERABLES Final ResultPerforming OrganizationAddressCity/State/ZIP CodePhone Number [facility] ([facility]) [address] [place] [address] * Vitamin A (07/06/2025 10:09 AM EDT)ComponentValueRef RangeTest MethodAnalysis TimePerformed AtPathologist SignatureVitamin A (Retinol)0.460.30 - 1.20 mg/L 07/10/2025 4:04 PM EDTARUP LABORATORY ([facility])Vitamin A (Retinyl Palmitate) <0.020.00 - 0.10 mg/L07/10/2025 4:04 PM EDTARUP LABORATORY ([facility])Vitamin A IpezrhxnxuiogkAsdsqm20/22/2025 4:04 PM EDTARUP LABORATORY ([facility])Comment: This test was developed and its performance characteristics determined by [email or web address]. It has not been cleared or approved by the [place] Food and Drug Administration. This test was performed in a CLIA certified laboratory and is intended for clinical purposes. Performed By: [email or web address] [address] [place] [address] Scrap Crane Operator: Calin Cui MD, PhD CLIA Number: [id number] Specimen (Source)Anatomical Location / LateralityCollection Method / Volume Collection TimeReceived TimeBloodVenous blood specimen / UnknownVenipuncture / Tlpgsfz1907/06/2025 10:09 AM EDT07/06/2025 10:43 AM EDT Narrative Authorizing ProviderResult TypeResult StatusJustin [facility] BLOOD ORDERABLES Final ResultPerforming OrganizationAddressCity/State/ZIP CodePhone Number [facility] ([facility]) [address] [place] [address] * Niacin (vitamin B3) (07/06/2025 10:09 AM EDT)ComponentValueRef RangeTest MethodAnalysis TimePerformed AtPathologist SignatureNicotinic AcidNone Det ng/mL07/16/2025 7:15 AM EDTARUP LABORATORY ([facility])Comment: Serum or Plasma Reporting Limit: 10 ng/mL ?? Synonym(s): Niacor(R); Niaspan(R); Slo-Niacin(R); Vitamin B3 Nicotinic acid occurs naturally in plants and animals and is also added to many foods as a vitamin supplement. Due to the large variability in the metabolism of nicotinic acid, the dosing preparation used (immediate-release vs. extended-release), and the mg doses used, the serum concentrations may range from less than 10 ng/mL to about 86647 ng/mL. After oral administration of an immediate-release tablet, peak plasma concentrations are achieved in 30 to 60 min; after oral administration of an extended-release capsule, peak plasma concentrations occur in 4 to 5 hours. The plasma half-life of nicotinic acid is about 1 hour. In one study, fasting plasma concentrations were reported to be approximately 10 ng/mL. In another study it was reported that the administration of a single 1000 mg extended-release tablet resulted in mean nicotinic acid concentrations of less than 50 ng/mL. The administration of multiple oral doses of nicotinic acid (for a total of 2000 mg) resulted in the following mean peak nicotinic acid plasma concentrations: 25 mg every 10 min. for 80 doses (over 13 hours): 1100 ng/mL 50 mg every 10 min. for 40 doses (over 6.5 hours): 5400 ng/mL 100 mg every 10 min. for 20 doses (over 3 hours): 21813 ng/mL This test should be considered as a therapeutic drug monitoring/toxicological test associated with niacin (Vitamin B3) supplementation. Care should be taken in the use of this test for basal Vitamin B3 determination. The supplied reference comment does not reflect normal, endogenous Vitamin B3 concentrations. Analysis by High Performance Liquid Chromatography/ Tandem Mass Spectrometry (LC-MS/MS) Fhlisnszcyxb26gv/mL07/16/2025 7:15 AM [facility] ([facility])Comment: Serum or Plasma Reporting Limit: 10 ng/mL ?? Synonym(s): Niacinamide; Vitamin B3; Niacin(R) Nicotinamide is a metabolite of nicotinic acid, is the common form of niacin included in vitamin preparations and is also added to many foods as a vitamin supplement. Due to the large variability in the metabolism of nicotinic acid, plasma concentrations of this metabolite also are variable. In one study, fasting plasma concentrations were reported to be approximately 40 ng/mL. In another study it was reported that the administration of a single 1000 mg extended-release tablet of nicotinic acid resulted in a mean peak Nicotinamide concentration of 400 ng/mL between 5 and 10 hours post dose, decreasing to about 100 ng/mL by 16 hours post dose. The administration of multiple oral doses of nicotinic acid (for a total of 2000 mg) resulted in the following mean peak Nicotinamide plasma concentrations: 25 mg every 10 min. for 80 doses (over 13 hours): 1300 ng/mL 50 mg every 10 min. for 40 doses (over 6.5 hours): 2300 ng/mL 100 mg every 10 min. for 20 doses (over 3 hours): 2000 ng/mL This test should be considered as a therapeutic drug monitoring/toxicological test associated with niacin (Vitamin B3) supplementation. Care should be taken in the use of this test for basal Vitamin B3 determination. The supplied reference comment does not reflect normal, endogenous Vitamin B3 concentrations. Analysis by High Performance Liquid Chromatography/ Tandem Mass Spectrometry (LC-MS/MS) Nicotinuric AcidNone Detng/mL07/16/2025 7:15 AM [facility] ([facility]) Comment: Serum or Plasma Reporting Limit: 10 ng/mL ?? Synonym(s): Niacin Metabolite Nicotinuric acid is a metabolite of nicotinic acid and nicotinamide. Due to the large variability in the metabolism of nicotinic acid and nicotinamide, plasma concentrations of this metabolite also are variable. In one study it was reported that the administration of a single 1000 mg extended-release tablet of nicotinic acid resulted in a mean peak nicotinuric acid concentration of over 1000 ng/mL within 2 hours post dose, decreasing to less than 200 ng/mL by 6 hours and less than 50 ng/mL by 12 hours post dose. The administration of multiple oral doses of nicotinic acid (for a total of 2000 mg) resulted in the following mean peak nicotinuric acid plasma concentrations: 25 mg every 10 min. for 80 doses (over 13 hours): 950 ng/mL 50 mg every 10 min. for 40 doses (over 6.5 hours): 2300 ng/mL 100 mg every 10 min. for 20 doses (over 3 hours): 5100 ng/mL This test should be considered as a therapeutic drug monitoring/toxicological test associated with niacin (Vitamin B3) supplementation. Care should be taken in the use of this test for basal Vitamin B3 determination. The supplied reference comment does not reflect normal, endogenous Vitamin B3 concentrations. Analysis by High Performance Liquid Chromatography/ Tandem Mass Spectrometry (LC-MS/MS) This test was developed and its performance characteristics determined by [employer]. ??It has not been cleared or approved by the [place] Food and Drug Administration. Digital data review may have taken place remotely by qualified [facility] staff utilizing a secure VPN connection for some or all of the reported results. This is in accordance with and follows CLIA regulations. Testing performed at [employer] [address] [place] [id number] Gino Poon, PhD, [facility], Scrap Crane Operator CLIA [id number] Specimen (Source)Anatomical Location / LateralityCollection Method / Volume Collection TimeReceived TimeBloodVenous blood specimen / UnknownVenipuncture / Nqmboui7107/06/2025 10:09 AM EDT07/06/2025 10:48 AM EDT Narrative Authorizing ProviderResult TypeResult StatusJustin [facility] BLOOD ORDERABLES Final ResultPerforming OrganizationAddressCity/State/ZIP CodePhone Number [facility]) [address] [place] [address] * Vitamin B2 (07/06/2025 10:09 AM EDT)ComponentValueRef RangeTest MethodAnalysis TimePerformed AtPathologist SignatureVitamin B2125 - 50 nmol/L07/09/2025 3:53 PM EDTARUP [facility] ([facility])Comment: INTERPRETIVE INFORMATION: Vitamin B2, Plasma This test was developed and its performance characteristics determined by [email or web address]. It has not been cleared or approved by the US Food and Drug Administration. This test was performed in a CLIA certified laboratory and is intended for clinical purposes. Performed By: [email or web address] [address] [place] [address] Scrap Crane Operator: Calin Cui MD, PhD CLIA Number: [id number] Specimen (Source)Anatomical Location / LateralityCollection Method / Volume Collection TimeReceived TimeBloodVenous blood specimen / UnknownVenipuncture / Rwdrklq3207/06/2025 10:09 AM EDT07/06/2025 10:33 AM EDT Narrative Authorizing ProviderResult TypeResult StatusJustin [facility] BLOOD ORDERABLES Final ResultPerforming OrganizationAddressCity/State/ZIP CodePhone Number [facility] [employer]) [address] [place] [phone] * (ABNORMAL) Vitamin D 25 hydroxy (07/06/2025 10:09 AM EDT)ComponentValueRef RangeTest MethodAnalysis TimePerformed AtPathologist SignatureVit D, 25-Arkprok77.8(L)30.0 - 80.0 ng/mL07/06/2025 12:[address] [facility] ([facility])Comment:>80.0 Toxicity possibleSpecimen (Source)Anatomical Location / LateralityCollection Method / VolumeCollection TimeReceived TimeBloodVenous blood specimen / UnknownVenipuncture / Jildoln6607/06/2025 10:09 AM EDT 07/06/2025 10:43 AM EDT Narrative Authorizing ProviderResult TypeResult StatusJustin [facility] BLOOD ORDERABLES Final ResultPerforming OrganizationAddressCity/State/ZIP CodePhone Number [facility] ([facility]) [address] [place] [address] * TSH (07/06/2025 10:09 AM EDT)ComponentValueRef RangeTest MethodAnalysis Time Performed AtPathologist SignatureTSH1.590.34 - 5.60 mIU/L07/06/2025 11:54 AM [facility] ([facility])Specimen (Source)Anatomical Location / Laterality Collection Method / VolumeCollection TimeReceived TimeBloodVenous blood specimen / UnknownVenipuncture / Hpcfatv5707/06/2025 10:09 AM EDT07/06/2025 10:43 AM EDT Narrative Authorizing ProviderResult TypeResult StatusJustin [facility] BLOOD ORDERABLES Final ResultPerforming OrganizationAddressCity/State/ZIP CodePhone Number [facility] ([facility]) [address] [place] [address] * Vitamin B1 (07/06/2025 10:09 AM EDT)ComponentValueRef RangeTest MethodAnalysis TimePerformed AtPathologist SignatureVitamin B1, Kjxkbg86 - 15 nmol/L 07/10/2025 4:05 PM EDTARUP LAB[facility]ATORY ([facility])Comment: INTERPRETIVE DATA: Vitamin B1, Plasma Thiamine (vitamin B1) is reported. However, thiamine diphosphate (TDP), the biologically active form of thiamine, is not found in measurable concentrations in plasma, and is best determined in whole blood specimens. Plasma thiamine concentration reflects recent intake rather than body stores. This test was developed and its performance characteristics determined by [email or web address]. It has not been cleared or approved by the US Food and Drug Administration. This test was performed in a CLIA certified laboratory and is intended for clinical purposes. Performed By: [facility] [email or web address] [address] [place] [address] Scrap Crane Operator: Calin Cui MD, PhD CLIA Number: [id number] Specimen (Source)Anatomical Location / LateralityCollection Method / Volume Collection TimeReceived TimeBloodVenous blood specimen / UnknownVenipuncture / Ietjvah7207/06/2025 10:09 AM EDT07/06/2025 10:43 AM EDT Narrative Authorizing ProviderResult TypeResult StatusJustin [facility] BLOOD ORDERABLES Final ResultPerforming OrganizationAddressCity/State/ZIP CodePhone Number [facility] ([facility]) [address] [place] [address] * (ABNORMAL) Vitamin B6 (07/06/2025 10:09 AM EDT)ComponentValueRef RangeTest MethodAnalysis TimePerformed AtPathologist SignatureVitamin B6<5.0(L)20.0 - 125.0 nmol/L07/10/2025 7:48 PM EDTARUP LABORATORY ([facility])Comment: INTERPRETIVE INFORMATION: Vitamin B6 (Pyridoxal 5-Phosphate) Pyridoxal 5'-phosphate measured in a specimen collected following an 8-hour or overnight fast accurately indicates vitamin B6 nutritional status. Non-fasting specimen concentration reflects recent vitamin intake. This test was developed and its performance characteristics determined by [email or web address]. It has not been cleared or approved by the US Food and Drug Administration. This test was performed in a CLIA certified laboratory and is intended for clinical purposes. Performed By: [facility] [email or web address] [address] [place] [address] Scrap Crane Operator: Calin Cui MD, PhD CLIA Number: [id number] Specimen (Source)Anatomical Location / LateralityCollection Method / Volume Collection TimeReceived TimeBloodVenous blood specimen / UnknownVenipuncture / Gkccgtw0007/06/2025 10:09 AM EDT07/06/2025 10:33 AM EDT Narrative Authorizing ProviderResult TypeResult StatusJustin [facility] BLOOD ORDERABLES Final ResultPerforming OrganizationAddressCity/State/ZIP CodePhone Number [facility] ([facility]) [address] [place] [address] * (ABNORMAL) Phosphorus (07/06/2025 10:09 AM EDT) Only the most recent of13 resultswithin the time period is included. ComponentValueRef RangeTest MethodAnalysis TimePerformed AtPathologist Signature Phosphorus1.8(L)2.5 - 5.0 mg/dL07/06/2025 11:[address] [facility] ([facility]) Specimen (Source)Anatomical Location / LateralityCollection Method / Volume Collection TimeReceived TimeBloodVenous blood specimen / UnknownVenipuncture / Kjvupka9607/06/2025 10:09 AM EDT07/06/2025 10:43 AM EDT Narrative Authorizing ProviderResult TypeResult StatusJustin [facility] BLOOD ORDERABLES Final ResultPerforming OrganizationAddressCity/State/ZIP CodePhone Number [facility]) [address] [place] [address] * Magnesium (07/06/2025 10:09 AM EDT) Only the most recent of15 resultswithin the time period is included. ComponentValueRef RangeTest MethodAnalysis TimePerformed AtPathologist Signature Magnesium2.11.9 - 2.7 mg/dL07/06/2025 11:[address] [facility] ([facility]) Specimen (Source)Anatomical Location / LateralityCollection Method / Volume Collection TimeReceived TimeBloodVenous blood specimen / UnknownVenipuncture / Mcdsrzl4807/06/2025 10:09 AM EDT07/06/2025 10:43 AM EDT Narrative Authorizing ProviderResult TypeResult StatusJustin [facility] BLOOD ORDERABLES Final ResultPerforming OrganizationAddressCity/State/ZIP CodePhone Number [facility]) [address] [place] [address] * Folate RBC (07/06/2025 10:09 AM EDT)ComponentValueRef RangeTest MethodAnalysis TimePerformed AtPathologist SignatureHematocrit (client supplied)38.4% 07/08/2025 2:12 AM EDTARUP LABORATORY ([facility])RBC Rdbxyl035>=366 ng/mL 07/08/2025 2:12 AM EDTARUP LABORATORY ([facility])Comment: Performed By: [email or web address] [address] [place] [id number] Scrap Crane Operator: Calin Cui MD, PhD CLIA Number: [id number] Specimen (Source)Anatomical Location / LateralityCollection Method / Volume Collection TimeReceived TimeBloodVenous blood specimen / UnknownVenipuncture / Fgwdgqk8107/06/2025 10:09 AM EDT07/06/2025 10:33 AM EDT Narrative Authorizing ProviderResult TypeResult StatusJustin Cowanjavier ENGLISH BLOOD ORDERABLES Final ResultPerforming OrganizationAddressCity/State/ZIP CodePhone Number [facility] ([facility]) [address] [place] [address] * Ferritin (07/06/2025 10:09 AM EDT)ComponentValueRef RangeTest MethodAnalysis TimePerformed AtPathologist ZnhuociozHsrkxeol79.011.0 - 336.0 ng/mL07/06/2025 11:[address] [facility] ([facility])Specimen (Source)Anatomical Location / LateralityCollection Method / VolumeCollection TimeReceived TimeBloodVenous blood specimen / UnknownVenipuncture / Wsauzer5407/06/2025 10:09 AM EDT 07/06/2025 10:43 AM EDT Narrative Authorizing ProviderResult TypeResult StatusJustin Chapo ENGLISH BLOOD ORDERABLES Final ResultPerforming OrganizationAddressCity/State/ZIP CodePhone Number [facility] ([facility]) [address] [place] [address] * Vitamin B12 (07/06/2025 10:09 AM EDT)ComponentValueRef RangeTest Method Analysis TimePerformed AtPathologist SignatureVitamin B-[id number] - 914 pg/mL 07/06/2025 11:[address] [facility] ([facility])Comment: REFERENCE RANGES: 180-914 pg/mL ??Normal 145-179 pg/mL ??Indeterminate <145 pg/mL Deficient Specimen (Source)Anatomical Location / LateralityCollection Method / Volume Collection TimeReceived TimeBloodVenous blood specimen / UnknownVenipuncture / Gkioryn7207/06/2025 10:09 AM EDT07/06/2025 10:43 AM EDT Narrative Authorizing ProviderResult TypeResult StatusJustin Cowan [facility] BLOOD ORDERABLES Final ResultPerforming OrganizationAddressCity/State/ZIP CodePhone Number [facility] ([facility]) [address] [place] [address] * (ABNORMAL) Comprehensive metabolic panel (07/06/2025 10:09 AM EDT)Component ValueRef RangeTest MethodAnalysis TimePerformed AtPathologist SignatureSodium 030844 - 145 mmol/L07/06/2025 11:[address] [facility] ([facility])Potassium 3.63.5 - 5.1 mmol/L07/06/2025 11:[address] [facility] ([facility])Chloride 95110 - 107 mmol/L07/06/2025 11:[address] [facility] ([facility])IV06124 - 31 mmol/L07/06/2025 11:[address] [facility] ([facility])Anion Gap97 - 20 mmol/L07/06/2025 11:[address] [facility] ([facility])BUN87 - 25 mg/dL 07/06/2025 11:[address] [facility] ([facility])Creatinine0.920.60 - 1.30 mg/dL07/06/2025 11:[address] [facility] ([facility])BUN/Creatinine Ratio8.7 07/06/2025 11:[address] [facility] ([facility])Lzbmcpf1185 - 100 mg/dL 07/06/2025 11:[address] [facility] ([facility])Calcium8.98.6 - 10.3 mg/dL 07/06/2025 11:[address] [facility] ([facility])AST6(L)13 - 39 U/L07/06/2025 11:[address] [facility] ([facility])ALT (SGPT)<3(L)7 - 52 U/L07/06/2025 11:[address] [facility] ([facility])Alkaline Ppylfmnpihn253(H)34 - 104 U/L 07/06/2025 11:[address] [facility] ([facility])Total Protein6.46.0 - 8.3 g/dL07/06/2025 11:[address] [facility] ([facility])Albumin3.4(L)3.5 - 5.7 g/dL07/06/2025 11:[address] [facility] ([facility])Total Bilirubin0.50.3 - 1.0 mg/dL07/06/2025 11:[address] [facility] ([facility])eGFR68.7>60.0 mL/min/1.73m* 11:[address] [facility] ([facility])Comment:The [facility]???s estimated glomerular filtration rate (eGFR) will no [...] not disproportionately affect any one group of individuals.Specimen (Source)Anatomical Location / LateralityCollection Method / VolumeCollection TimeReceived TimeBloodVenous blood specimen / UnknownVenipuncture / Uwreehc8107/06/2025 10:09 AM EDT07/06/2025 10:43 AM EDT Narrative Authorizing ProviderResult TypeResult StatusJustin Cowan [facility] BLOOD ORDERABLES Final ResultPerforming OrganizationAddressCity/State/ZIP CodePhone Number [facility] ([facility]) [address] [place] [address] * POCT glucose meter (06/28/2025 11:32 AM EDT) Only the most recent of54 resultswithin the time period is included. ComponentValueRef RangeTest MethodAnalysis TimePerformed AtPathologist Signature Glucose AYX33691 - 105 mg/dL06/28/2025 11:[address] [facility] ([facility]) Comment:qicykqi98Efniszzy (Source)Anatomical Location / LateralityCollection Method / VolumeCollection TimeReceived TimeBloodCapillary blood specimen / Kkwshdl9006/28/2025 11:32 AM EDT06/28/2025 11:44 AM EDT Narrative [facility] ([facility]) - 06/28/2025 11:44 AM EDT Waived Testing in the ED is performed under the ED CLIA certificate #[id number]. Authorizing ProviderResult TypeResult StatusJustin Cowan MDL[facility] BLOOD ORDERABLES Final ResultPerforming OrganizationAddressCity/State/ZIP CodePhone Number [facility] ([facility]) [address] [place] [address] * (ABNORMAL) Basic metabolic panel (06/28/2025 3:22 AM EDT) Only the most recent of23 resultswithin the time period is included. ComponentValueRef RangeTest MethodAnalysis TimePerformed AtPathologist Signature Vrpysf371149 - 145 mmol/L06/28/2025 4:[address] [facility] ([facility]) Potassium3.3(L)3.5 - 5.1 mmol/L06/28/2025 4:[address] [facility] ([facility]) Gjciicnu75254 - 107 mmol/L06/28/2025 4:[address] [facility] ([facility])CO228 21 - 31 mmol/L06/28/2025 4:[address] [facility] ([facility])PTZ645 - 25 mg/dL 06/28/2025 4:[address] [facility] ([facility])Creatinine0.790.60 - 1.30 mg/dL 06/28/2025 4:[address] [facility] ([facility])Ydjcrgz7721 - 100 mg/dL 06/28/2025 4:[address] [facility] ([facility])Calcium8.5(L)8.6 - 10.3 mg/dL 06/28/2025 4:[address] [facility] ([facility])Anion Gap77 - 20 mmol/L 06/28/2025 4:[address] [facility] ([facility])eGFR82.4>60.0 mL/min/1.73m*2 06/28/2025 4:[address] [facility] ([facility])Comment:The [facility]???s estimated glomerular filtration rate (eGFR) will no longer include consideration of race in its calculation. The National Kid[employer] Foundation???s eGFR Task Force developed new recommendations for the estimation of the glomerular filtration rate in the [place] They recommend immediate implementation of the new equation refit without the race variable in all la boratories because the calculation does not include race. In addition to not including race in the calculation and reporting, it included diversity in its development, and has acceptable performance characteristics and potential consequences that do not disproportionately affect any one group of individuals. BUN/Creatinine Ratio24. 4:[address] [facility] ([facility])Specimen (Source)Anatomical Location / LateralityCollection Method / VolumeCollection TimeReceived TimeBloodVenous blood specimen / UnknownVenipuncture / Unknown 06/28/2025 3:22 AM EDT06/28/2025 4:07 AM EDT Narrative Authorizing ProviderResult TypeResult StatusJustin Cowan MDL[facility] BLOOD ORDERABLES Final ResultPerforming OrganizationAddressCity/State/ZIP CodePhone Number [facility] ([facility]) [address] [place] [address] * [facility] Lower Extremity Venous Duplex Bilateral (06/26/2025 10:40 AM EDT) Anatomical RegionLateralityModalityLower ExtremitiesUltrasoundSpecimen (Source)Anatomical Location / LateralityCollection Method / VolumeCollection TimeReceived Time06/26/2025 8:01 PM EDT Impressions 06/26/2025 8:01 PM EDT Notes: Indication: Deep venous thrombosis (DVT); rule out dvt. left calf pain Patient said he had a history of DVT. Limited visualization due to edema. Right: Minimally dilated, partially compressible veins common femoral, SFJ, femoral, popliteal, andposterior tibial veins with isoechoic intraluminal content; consistent with age indeterminate thrombus. SFJ was not compressible, proximal GSV was compressible. Remaining visualized venous segments compressed and augmented. ? Left: Minimally dilated, partially compressible right before SFJ in the common femoral vein and 1 of ??2 of the peroneal veins with isoechoic intraluminal content; consistent with age indeterminate thrombus. Remaining visualized venous segments compressed and augmented. ? Conclusions: Indetermin ate age thrombosis of the right common femoral, SFJ, femoral, popliteal, and posterior tibial veins and left common femoral, and peroneal veins Narrative 06/26/2025 8:01 PM EDT Procedure: Duplex spectral Doppler and real time ultrasound imaging with compression and augmentation was performed from inguinal ligament to ankle bilaterally. Procedure Note Rosaura Juarez MD - 06/26/2025 Procedure: Duplex spectral Doppler and real time ultrasound imaging with compression and augmentation was performed from inguinal ligament to ankle bilaterally. IMPRESSION: Notes: Indication: Deep venous thrombosis (DVT); rule out dvt. left calfpain Patient said he had a history of DVT. Limited visualization due toedema. Right: Minimally dilated, partially compressible veins common femoral,SFJ, femoral, popliteal, and posterior tibial veins with isoechoicintraluminal content; consistent with age indeterminate thrombus. SFJ wasnot compressible, proximal GSV was compressible. Remaining visualizedvenous segments compressed and augmented. Left: Minimally dilated, partially compressible right before SFJ in thecommon femoral vein and 1 of 2 of the peroneal veins with isoechoicintraluminal content; consistent with age indeterminate thrombus.Remaining visualized venous segments compressed and augmented. Conclusions: Indetermin ate age thrombosis of the right common femoral,SFJ, femoral, popliteal, and posterior tibial veins and left commonfemoral, and peroneal veins Authorizing ProviderResult TypeResult StatusJustin Cowan MDIMG CV VASCULAR PROCEDURESFinal Result * (ABNORMAL) Urinalysis microscopic (06/23/2025 7:45 AM EDT)ComponentValueRef RangeTest MethodAnalysis TimePerformed AtPathologist SignatureRBC, Urine6-10 (A)None Seen, 0-2 /HPF06/23/2025 8:[address] [facility] ([facility])WBC, Dalrp25-25(A)None Seen, 0-2 /HPF06/23/2025 8:[address] [facility] ([facility])Squamous Epithelial, UrineNone SeenNone Seen, Occasional, Few /LPF 06/23/2025 8:[address] [facility] ([facility])Mucus, UrineOccasionalNone Seen, Occasional, Few /LPF06/23/2025 8:[address] [facility] ([facility]) Specimen (Source)Anatomical Location / LateralityCollection Method / Volume Collection TimeReceived TimeUrine (Urine, Ferro Catheter)Non-blood Collection / Dnvxgtt5206/23/2025 7:45 AM EDT06/23/2025 7:51 AM EDT Narrative Authorizing ProviderResult TypeResult StatusDaarleen ENGLISH URINE ORDERABLES Final ResultPerforming OrganizationAddressCity/State/ZIP CodePhone Number [facility] ([facility]) [address] [place] [address] * (ABNORMAL) Urinalysis (06/23/2025 7:45 AM EDT)ComponentValueRef RangeTest MethodAnalysis TimePerformed AtPathologist SignatureColor, UrineLight-Yellow Colorless, Yellow, Light-Ayqvto6806/23/2025 8:[address] [facility] ([facility])Clarity, PzmchGfgsmKyybd01/05/2025 8:[address] [facility] ([facility])pH, Urine6.55.0 - 8.0 pH06/23/2025 8:[address] [facility] ([facility])Leukocytes, UrineLarge(A)Pphfgnui94/05/2025 8:[address] [facility] ([facility])Nitrite, WgbhjHreadxzxZatxyjcn54/05/2025 8:[address] [facility] ([facility])Protein, UrineNegativeNegative mg/dL06/23/2025 8:[address] [facility] ([facility])Glucose, UrineNormalNormal mg/dL06/23/2025 8:[address] [facility] ([facility])Bilirubin, BigvxVgizgqzpYkyalmmj09/05/2025 8:[address] [facility] ([facility])Specific [place], Urine1.005(L)1.010 - 1.030 06/23/2025 8:[address] [facility] ([facility])Ketones, UrineNegativeNegative mg/dL06/23/2025 8:[address] [facility] ([facility])Blood, UrineSmall(A) Tiebruni65/05/2025 8:[address] [facility] ([facility])Urobilinogen, Urine2.0 (A)Normal mg/dL06/23/2025 8:[address] [facility] ([facility])Specimen (Source)Anatomical Location / LateralityCollection Method / VolumeCollection TimeReceived TimeUrine (Urine, Ferro Catheter)Non-blood Collection / Unknown 06/23/2025 7:45 AM EDT06/23/2025 7:51 AM EDT Narrative Authorizing ProviderResult TypeResult StatusBryson ENGLISH URINE ORDERABLES Final ResultPerforming OrganizationAddressCity/State/ZIP CodePhone Number [facility] ([facility]) [address] [place] [address] * (ABNORMAL) Urine culture, routine (06/22/2025 5:33 PM EDT)ComponentValueRef RangeTest MethodAnalysis TimePerformed AtPathologist SignatureUrine Culture 10,000 - 50,000 CFU/Ml Pseudomonas aeruginosa(A) SABI 06/24/2025 6:[address] [facility] ([facility])Specimen (Source)Anatomical Location / LateralityCollection Method / VolumeCollection TimeReceived TimeUrine Urine specimen obtained by clean catch procedure / UnknownNon-blood Collection / Lwwltnz0806/22/2025 5:33 PM EDT06/22/2025 5:47 PM EDT Narrative OrganismAntibioticMethodSusceptibilityPseudomonas aeruginosaCefepimeMIC 4 ug/ml: Susceptible Pseudomonas aeruginosaCiprofloxacinMIC 0.5 ug/ml: Susceptible Pseudomonas aeruginosaLevofloxacinMIC 1 ug/ml: Susceptible Pseudomonas aeruginosaMeropenemMIC 1 ug/ml: Susceptible Pseudomonas aeruginosaPiperacillin + TazobactamMIC 8/4 ug/ml: Susceptible Pseudomonas aeruginosaTobramycinMIC <=2 ug/ml: Susceptible Authorizing ProviderResult TypeResult StatusBhupendra ENGLISH MICROBIOLOGY - GENERAL ORDERABLESFinal ResultPerforming OrganizationAddressCity/State/ZIP Code Phone Number [facility] ([facility]) [address] [place] [address] * Potassium (06/21/2025 8:54 AM EDT) Only the most recent of2 resultswithin the time period is included. ComponentValueRef RangeTest MethodAnalysis TimePerformed AtPathologist Signature Potassium3.63.5 - 5.1 mmol/L06/21/2025 10:[address] [facility] ([facility]) Specimen (Source)Anatomical Location / LateralityCollection Method / Volume Collection TimeReceived TimeBloodArterial blood specimen / UnknownArterial Line / Ispciul3206/21/2025 8:54 AM EDT06/21/2025 9:28 AM EDT Narrative Authorizing ProviderResult TypeResult StatusJustin Cowan MDLAB BLOOD ORDERABLES Final ResultPerforming OrganizationAddressCity/State/ZIP CodePhone Number [facility] ([place]) [address] [place] [address] * CT abdomen pelvis wo IV contrast (06/20/2025 4:33 PM EDT)Anatomical Region LateralityModalityBody, Pelvis, AbdomenComputed TomographySpecimen (Source) Anatomical Location / LateralityCollection Method / VolumeCollection Time Received Time06/20/2025 6:49 PM EDT Impressions 06/20/2025 6:55 PM EDT Status post reversal of Rene-en-Y gastric bypass. No imaging evidence for leak or obstruction at surgical site currently. All CT scans at this facility use dose modulation, iterative reconstruction, and/or weight based dosing when appropriate to reduce radiation dose to as low as reasonably achievable. Electronically signed: Darnell Steel. 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 s/p UGI study 06/20, eval for leak/anatomy. 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 s/p UGI study 06/20, eval for leak/anatomy. 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 STUDY: Abdomen and pelvis CT without intravenous contrast CT ABDOMEN PELVIS WO IV CONTRAST COMPARISON: Upper GI June 20 TECHNIQUE: CT performed through the ??abdomen and pelvis without IV contrast .The lack of ??IV contrast compromises evaluation of the abdominal parenchymal organs, adenopathy, and bowel.Automated exposure control was utilized. Oral contrast was utilized FINDINGS: Oral contrast opacifies the gastroesophageal junction and the gastric pouch as well as portions of the stomach and contrast opacifies the C-loop of the duodenum which subsequently opacifies the jejunum. No leak or obstruction identified and no abscess identified. There is small amounts of free air consistent with recent surgery. Perforated viscus cannot be excluded in this setting. There is a midline abdominal wound Liver spleen pancreas adrenal glands and kidneys show no acute findings. There are bilateral multiple nonobstructing calyceal stones There is a suprapubic bladder catheter Consider repeat CT with IV contrast if you suspect occult process Procedure Note Darnell Steel MD - 06/20/2025 History: hx RYGB s/p reversal due to GJ ulcer and bleed. s/p UGI study 06/20, evalfor leak/anatomy. 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 s/p UGI study 06/20, evalfor leak/anatomy. 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 STUDY: Abdomen and pelvis CT without intravenous contrast CT ABDOMEN PELVIS WO IV CONTRAST COMPARISON: Upper GI June 20 TECHNIQUE: CT performed through the abdomen and pelvis without IVcontrast .The lack of IV contrast compromises evaluation of the abdominal parenchymalorgans, adenopathy, and bowel.Automated exposure control was utilized. Oralcontrast was utilized FINDINGS: Oral contrast opacifies the gastroesophageal junction and the gastricpouch as well as portions of the stomach and contrast opacifies the C-loop of the duodenum which subsequently opacifies the jejunum. No leak orobstruction identified and no abscess identified. There is small amounts of free air consistent with recent surgery. Perforated viscus cannot be excluded inthis setting. There is a midline abdominal wound Liver spleen pancreas adrenal glands and kidneys show no acute findings. There are bilateral multiple nonobstructing calyceal stones There is a suprapubic bladder catheter Consider repeat CT with IV contrast if you suspect occult process IMPRESSION: Status post reversal of Rene-en-Y gastric bypass. No imaging evidence forleak or obstruction at surgical site currently. All CT scans at this facility use dose modulation, iterativereconstruction, and/or weight based dosing when appropriate to reduce radiation dose to aslow as reasonably achievable. Electronically signed: Darnell Steel. Authorizing ProviderResult TypeResult StatusJustin [facility] MDIMG CT PROCEDURESFinal Result * FL upper GI w KUB (06/20/2025 3:28 PM EDT)Anatomical RegionLateralityModality Radio FluoroscopySpecimen (Source)Anatomical Location / LateralityCollection Method / VolumeCollection TimeReceived Time06/20/2025 3:49 PM EDT Impressions 06/20/2025 3:55 PM EDT * No definitive leak identified fluoroscopically. Electronically signed: Gordon Larson MD. Narrative 06/20/2025 3:55 PM EDT Fluoroscopy upper GI HISTORY: Remote history of gastric bypass, recently complicated by large bleeding marginal ulcer status post recent reversal of bypass. Evaluate for leak COMPARISON: CT abdomen/pelvis 06/07/2025 FINDINGS: Preliminary title assistant radiograph of the abdomen were acquired. Next, images were acquired following the ingestion of water-soluble contrast. Please note that this study is significantly compromised as the patient has very limited mobility and therefore only supine and minimally obliqued images were able to be acquired. Contrast passes from esophagus into the gastric pouch. There is some holdup of contrast in the esophagus with to and fro motion suggestive of esophageal dysmotility. Contrast extends from the gastric pouch into a fundal component of stomach, similar in configuration when comparing with CT. Some contrast is seen to extend through the gastric body into the antrum and proximal duodenum. No definitive leak of contrast is appreciated on these images. Reference air kerma 210.5 mGy. Procedure Note Gordon Larson MD - 06/20/2025 Fluoroscopy upper GI HISTORY: Remote history of gastric bypass, recently complicated by large bleeding marginal ulcer status post recent reversal of bypass. Evaluatefor leak COMPARISON: CT abdomen/pelvis 06/07/2025 FINDINGS: Preliminary title assistant radiograph of the abdomen were acquired. Next, imageswere acquired following the ingestion of water-soluble contrast. Please notethat this study is significantly compromised as the patient has very limitedmobility and therefore only supine and minimally obliqued images were able to be acquired. Contrast passes from esophagus into the gastric pouch. There is someholdup of contrast in the esophagus with to and fro motion suggestive ofesophageal dysmotility. Contrast extends from the gastric pouch into a fundalcomponent of stomach, similar in configuration when comparing with CT. Some contrast isseen to extend through the gastric body into the antrum and proximal duodenum.No definitive leak of contrast is appreciated on these images. Reference air kerma 210.5 mGy. IMPRESSION: *No definitive leak identified fluoroscopically. Electronically signed: Gordon Larson MD. Authorizing ProviderResult TypeResult StatusJustin Cowan MDIMG FLUOROSCOPY PROCEDURESFinal Result * Vasc Us Lower Extremity Arterial Duplex Bilateral (06/20/2025 2:28 PM EDT) Anatomical RegionLateralityModalityLower ExtremitiesUltrasoundSpecimen (Source)Anatomical Location / LateralityCollection Method / VolumeCollection TimeReceived Time06/20/2025 1:05 PM EDT Impressions 06/20/2025 1:05 PM EDT Notes: Indication: PICC line placement and r/o clots in RUE PORTABLE Right: Non visualization of common femoral and deep femoral arteries due to bandage material. Non visualization of peroneal and anterior tibial arteries due to edema and patient positioning. Heterogenous plaque with multiphasic Doppler signals and no significant spectral Doppler or color flow disturbances noted in superficial femoral, popliteal, posterior tibial, and dorsalis pedis arteries. ?? Left: Heterogeneous plaque with multiphasic Doppler signals and no significant spectral Doppler or color flow disturbances noted in common femoral, deep femoral, superficial femoral, popliteal, posterior tibial, anterior tibial, and dorsalis pedis arteries. Conclusions: Non visualization of right common femoral and deep femoral arteries due to dressing No evidence of significant arterial occlusive disease both legs. Narrative 06/20/2025 1:05 PM EDT Procedure: The lower extremity arteries were evaluated by ultrasound, Doppler flow, color Doppler, spectral analysis, and velocity measurement. This included evaluation of the peak systolic velocity. The segments evaluated including the common femoral artery, proximal superficial femoral artery, mid-superficial femoral artery, distal superficial femoral artery, popliteal artery, proximally and distally all calf arteries. Evaluation performed of stent (s) if present. Procedure Note Rosaura Juarez MD - 06/20/2025 Procedure: The lower extremity arteries were evaluated by ultrasound,Doppler flow, color Doppler, spectral analysis, and velocity measurement.This included evaluation of the peak systolic velocity. The segmentsevaluated including the common femoral artery, proximal superficialfemoral artery, mid-superficial femoral artery, distal superficial femoralartery, popliteal artery, proximally and distally all calf arteries.Evaluation performed of stent (s) if present. IMPRESSION: Notes: Indication: PICC line placement and r/o clots in RUE PORTABLE Right: Non visualization of common femoral and deep femoral arteries dueto bandage material. Non visualization of peroneal and anterior tibialarteries due to edema and patient positioning. Heterogenous plaque withmultiphasic Doppler signals and no significant spectral Doppler or colorflow disturbances noted in superficial femoral, popliteal, posteriortibial, and dorsalis pedis arteries. Left: Heterogeneous plaque with multiphasic Doppler signals and nosignificant spectral Doppler or color flow disturbances noted in commonfemoral, deep femoral, superficial femoral, popliteal, posterior tibial,anterior tibial, and dorsalis pedis arteries. Conclusions: Non visualization of right common femoral and deep femoralarteries due to dressing No evidence of significant arterial occlusive disease both legs. Authorizing ProviderResult TypeResult StatusRosaura TAVERAS CV VASCULAR PROCEDURESFinal Result * XR chest 1 view (06/20/2025 2:09 PM EDT) Only the most recent of2 resultswithin the time period is included. Anatomical RegionLateralityModalityChestComputed RadiographySpecimen (Source) Anatomical Location / LateralityCollection Method / VolumeCollection Time Received Time06/20/2025 2:54 PM EDT Impressions 06/20/2025 2:56 PM EDT FINDINGS/IMPRESSION: * Right upper cervical tip terminates in the region of the superior cavoatrial junction. * Left chest wall cardiac device, ACDF, spinal cord implant leads are also noted. Additional tubing is noted overlying the left hemiabdomen. * Slightly low lung volumes with slight left hemidiaphragmatic elevation which may reflect underlying atelectasis. Small underlying effusion, pneumonia is not excluded. No obvious pneumothorax by technique. * Similar cardiac silhouette. * Degenerative changes in the right shoulder. Left shoulder arthroplasty. Electronically signed: BEAU CORNEJO MD. Narrative 06/20/2025 2:56 PM EDT EXAM: XR CHEST 1 VIEW CLINICAL INDICATIONS: PICC placement Procedure Note Beau Cornejo MD - 06/20/2025 EXAM: XR CHEST 1 VIEW CLINICAL INDICATIONS: PICC placement IMPRESSION: FINDINGS/IMPRESSION: *Right upper cervical tip terminates in the region of the superior cavoatrial junction. *Left chest wall cardiac device, ACDF, spinal cord implant leads arealso noted. Additional tubing is noted overlying the left hemiabdomen. *Slightly low lung volumes with slight left hemidiaphragmatic elevation which may reflect underlying atelectasis. Small underlying effusion,pneumonia is not excluded. No obvious pneumothorax by technique. *Similar cardiac silhouette. *Degenerative changes in the right shoulder. Left shoulderarthroplasty. Electronically signed: BEAU CORNEJO MD. Authorizing ProviderResult TypeResult StatusJustin Cowan MDIMG XR PROCEDURESFinal Result * Vasc Us Upper Extremity Venous Duplex Right (06/20/2025 10:48 AM EDT) Anatomical RegionLateralityModalityUpper ExtremitiesUltrasoundSpecimen (Source)Anatomical Location / LateralityCollection Method / VolumeCollection TimeReceived Time06/20/2025 10:13 AM EDT Impressions 06/20/2025 1:02 PM EDT Notes: Indication: PICC line placement and r/o clots in RUE Right: Dilated noncompressible cephalic veins with hypoechoic intraluminal content; consistent withacute superficial vein thrombosis. Cephalic vein was compressible in patient's upper arm and becamenon compressible at the antecubital fossa region and continued below. Remaining visualized deep and superficial veins of the right upper extremity with no evidence of deep or superficial vein thrombosis. ? Left: No evidence of acute deep vein thrombosis of the left subclavian vein. Notes: Indication: PICC line placement and r/o clots in RUE Right: Dilated noncompressible cephalic veins with hypoechoic intraluminal content; consistent withacute superficial vein thrombosis. Cephalic vein was compressible in patient's upper arm and becamenon compressible at the antecubital fossa region and continued below. Remaining visualized deep and superficial veins of the right upper extremity with no evidence of deep or superficial vein thrombosis. ? Left: No evidence of acute deep vein thrombosis of the left subclavian vein. Conclusions: Acute superficial vein thrombosis of cephalic vein. No evidence of deep vein thrombosis Narrative 06/20/2025 1:02 PM EDT Procedure: The upper extremity veins were evaluated bilaterally. This included evaluation of the subclavian, axillary, brachial, ulnar, radial, basilic and cephalic veins. Evaluation done by real-time ultrasound, color Doppler, compression and augmentation. Procedure: The upper extremity veins were evaluated bilaterally. ??This included evaluation of the subclavian, axillary, brachial, ulnar, radial, basilic and cephalic veins. ??Evaluation done by real-time ultrasound, color Doppler, compression and augmentation. Procedure Note Rosaura Juarez MD - 06/20/2025 Procedure: The upper extremity veins were evaluated bilaterally. Thisincluded evaluation of the subclavian, axillary, brachial, ulnar, radial,basilic and cephalic veins. Evaluation done by real-time ultrasound,color Doppler, compression and augmentation. Procedure: The upper extremity veins were evaluated bilaterally. Thisincluded evaluation of the subclavian, axillary, brachial, ulnar, radial,basilic and cephalic veins. Evaluation done by real-time ultrasound,color Doppler, compression and augmentation. IMPRESSION: Notes: Indication: PICC line placement and r/o clots in RUE Right: Dilated noncompressible cephalic veins with hypoechoic intraluminal content; consistent with acute superficial vein thrombosis. Cephalic veinwas compressible in patient's upper arm and became non compressible at the antecubital fossa region and continued below. Remaining visualized deepand superficial veins of the right upper extremity with no evidence ofdeep or superficial vein thrombosis. Left: No evidence of acute deep vein thrombosis of the left subclavianvein. Notes: Indication: PICC line placement and r/o clots in RUE Right: Dilated noncompressible cephalic veins with hypoechoic intraluminal content; consistent with acute superficial vein thrombosis. Cephalic veinwas compressible in patient's upper arm and became non compressible at the antecubital fossa region and continued below. Remaining visualized deepand superficial veins of the right upper extremity with no evidence ofdeep or superficial vein thrombosis. Left: No evidence of acute deep vein thrombosis of the left subclavianvein. Conclusions: Acute superficial vein thrombosis of cephalic vein. No evidence of deep vein thrombosis Authorizing ProviderResult TypeResult StatusFadi Vance YBARRAIMAdrianne CV VASCULAR PROCEDURESFinal Result * (ABNORMAL) CBC (06/20/2025 6:09 AM EDT) Only the most recent of3 resultswithin the time period is included. ComponentValueRef RangeTest MethodAnalysis TimePerformed AtPathologist Signature Auto WBC5.714.00 - 10.60 10*3/uL06/20/2025 7:[address] [facility] ([facility]) RBC3.26(L)3.80 - 5.70 10*6/uL06/20/2025 7:[address] [facility] ([facility]) Hemoglobin9.4(L)12.0 - 17.0 g/dL06/20/2025 7:[address] [facility] ([facility]) Uldpwblllw39.9(L)36.0 - 50.0 %06/20/2025 7:[address] [facility] ([facility]) MCV85.682.0 - 98.0 fL06/20/2025 7:[address] [facility] ([facility])MCH28.827.0 - 33.0 pg06/20/2025 7:[address] [facility] ([facility])MCHC33.732.0 - 35.0 g/dL06/20/2025 7:[address] [facility] ([facility])RDW15.7(H)11.5 - 15.0 % 06/20/2025 7:[address] [facility] ([facility])[id number] - 400 10*3/uL 06/20/2025 7:[address] [facility] ([facility])Immature Platelet Fraction %13.0 (H)0.8 - 6.3 %06/20/2025 7:[address] [facility] ([facility])Specimen (Source) Anatomical Location / LateralityCollection Method / VolumeCollection Time Received TimeBloodArterial blood specimen / UnknownArterial Line / Unknown 06/20/2025 6:09 AM EDT06/20/2025 6:43 AM EDT Narrative Authorizing ProviderResult TypeResult StatusJustin Cowan AMADOR BLOOD ORDERABLES Final ResultPerforming OrganizationAddressCity/State/ZIP CodePhone Number [facility] ([facility]) [address] [place] [address] * (ABNORMAL) Hemoglobin and hematocrit, blood (06/20/2025 12:40 AM EDT) Only the most recent of12 resultswithin the time period is included. ComponentValueRef RangeTest MethodAnalysis TimePerformed AtPathologist Signature Hemoglobin9.2(L)12.0 - 17.0 g/dL06/20/2025 12:[address] [facility] ([facility])Uanzbccyhb03.8(L)36.0 - 50.0 %06/20/2025 12:[address] [facility] ([facility])Specimen (Source)Anatomical Location / LateralityCollection Method / VolumeCollection TimeReceived TimeBloodArterial blood specimen / UnknownArterial Line / Tyirkal9406/20/2025 12:40 AM EDT06/20/2025 12:53 AM EDT Narrative Authorizing ProviderResult TypeResult StatusFadi Vance ENGLISH BLOOD ORDERABLES Final ResultPerforming OrganizationAddressCity/State/ZIP CodePhone Number [facility] ([facility]) [address] [place] [address] * Transfuse RBC (06/19/2025 2:20 PM EDT) Only the most recent of4 resultswithin the time period is included. Narrative Authorizing ProviderResult TypeResult StatusMillicent SALDAÑAOOD TRANSFUSION ORDERABLESFinal Result * Prepare RBC (06/19/2025 7:43 AM EDT) Only the most recent of5 resultswithin the time period is included. ComponentValueRef RangeTest MethodAnalysis TimePerformed AtPathologist Signature PRODUCT [id number] BLOOD BANKUnit [id number] BLOOD BANKUnit ABOOUT BLOOD BANKUnit RhNEGK[facility] BLOOD BANKDispense StatusREKAYENTA [facility] BLOOD BANK Blood Expiration [id number] BLOOD BANKProduct Blood Yjte9141KSZU BLOOD BANKUnit Ouqkqk210wBSLWF BLOOD BANKPRODUCT YZLDB2728R15VJFZ BLOOD BANKUnit [id number]-MPTEH BLOOD BANKUnit [facility]RESBY[facility] BLOOD BANKUnit RhNEGKAYENT[facility] BLOOD BANKDispense StatusREKAYENTA [facility]ALTH [facility] BLOOD BANKBlood Expiration [id number] BLOOD BANKProduct Blood Dsdq3086EUMN BLOOD BANKPRODUCT NFIBI6496N42MVTV BLOOD BANK Unit [id number]-CMINB BLOOD BANKUnit ABOOUT BLOOD BANKUnit [facility]GK[facility] BLOOD BANKDispense StatusREKAYENTA [facility]ALTH [facility] BLOOD BANKBlood Expiration [id number] BLOOD BANKProduct Blood Euie0761YQVL BLOOD BANKPRODUCT DCKOJ0594W18QNLH BLOOD BANKUnit [id number]-YOQTA BLOOD BANKUnit [facility] BLOOD BANKUnit RhNEG [facility] BLOOD BANKDispense StatusREKAYENTA HEALTH CENTER BLOOD BANKBlood Expiration [id number] [facility] BLOOD BANKProduct Blood Yupx8699LFRR BLOOD BANK Narrative Authorizing ProviderResult TypeResult StatusSydney [facility] CenterOOD [facility] PRODUCT ORDERABLESFinal ResultPerforming OrganizationAddressCity/State/ZIP CodePhone Number [facility] BLOOD BANK * Type and screen (06/19/2025 3:46 AM EDT) Only the most recent of2 resultswithin the time period is included. ComponentValueRef RangeTest MethodAnalysis TimePerformed AtPathologist Signature ABO InyzwsvwH65/01/2025 4:46 AM [facility] BLOOD BANKRh EafeJIO9806/19/2025 4:46 AM [facility] BLOOD BANKAb PvvkHUY6406/19/2025 4:46 AM [facility] BLOOD BANKSpecimen (Source)Anatomical Location / LateralityCollection Method / VolumeCollection TimeReceived TimeBloodVenous blood specimen / UnknownArterial Line / Unknown 06/19/2025 3:46 AM EDT06/19/2025 3:58 AM EDT Narrative Authorizing ProviderResult TypeResult StatusJustin Cowan [facility] BLOOD BANK TEST ORDERABLESFinal ResultPerforming OrganizationAddressCity/State/ZIP CodePhone Number [facility] BLOOD BANK * Triglycerides every Thursday while patient is on Propofol (06/19/2025 3:46 AM EDT) Only the most recent of2 resultswithin the time period is included. ComponentValueRef RangeTest MethodAnalysis TimePerformed AtPathologist Signature Hwhkqlwjyzbhn009<150 mg/dL06/19/2025 5:[address] [facility] ([facility]) Fasting?acwwmfv8206/19/2025 5:[address] [facility] ([facility])Specimen (Source) Anatomical Location / LateralityCollection Method / VolumeCollection Time Received TimeBloodVenous blood specimen / UnknownArterial Line / Unknown 06/19/2025 3:46 AM EDT06/19/2025 4:01 AM EDT Narrative Authorizing ProviderResult TypeResult StatusFadi Limai MDLAB BLOOD ORDERABLES Final ResultPerforming OrganizationAddressCity/State/ZIP CodePhone Number [facility] ([place]) [address] [place] [address] * (ABNORMAL) Arterial Blood Gases (06/18/2025 11:35 PM EDT)ComponentValueRef RangeTest MethodAnalysis TimePerformed AtPathologist SignaturepH, Arterial7.45 7.35 - 7.45006/18/2025 11:35 PM [facility] RESPIRATORY THERAPYpCO2, Ugbbjzlz4752 - 45 mmHg06/18/2025 11:35 PM [facility] RESPIRATORY THERAPYpO2, Ymxvcoeo37(L)83 - 108 mmHg06/18/2025 11:35 PM [facility] RESPIRATORY THERAPYHCO3, Zzntostm21.021.0 - 28.0 mmol/L06/18/2025 11:35 PM [facility] RES[facility] THERAPYO2 Sat, Arterial 98.794.0 - 100.0 %06/18/2025 11:35 PM [facility] RESPIR[facility]ORY THERAPYBase Excess, Arterial1.3-2.0 - 3.0 mmol/L06/18/2025 11:35 PM [facility] Oxyhemoglobin, Ytrcvjzq21.694.0 - 97.0 %06/18/2025 11:35 PM [facility] RESPIRATORY RAYWDAJFskxljntvyw06.0??C006/18/2025 11:35 PM [facility] RESPIRATORY THERAPYLPM1.0LPM06/18/2025 11:35 PM [facility] RESPIR[facility]ORY THERAPYPF Ratio 06/18/2025 11:35 PM [facility] RESPIRATORY THERAPYComment:C^IncalculableA-aDo2 06/18/2025 11:35 PM EDTKAYENTA [facility] RESPIRATORY THERAPYComment:C^IncalculablepaO2/pAO2 06/18/2025 11:35 PM EDTKAYENTA [facility] RESPIRATORY THERAPYComment:C^IncalculableSpecimen (Source)Anatomical Location / LateralityCollection Method / VolumeCollection TimeReceived TimeBloodArterial blood specimen / Syxwogi5306/18/2025 11:35 PM EDT 06/18/2025 11:35 PM EDT Narrative Authorizing ProviderResult TypeResult StatusJustin Cowan [facility] BLOOD ORDERABLES Final ResultPerforming OrganizationAddressCity/State/ZIP CodePhone Number [facility] RESPIRATORY THERAPY [address] [place] [address], * Transfuse fresh frozen plasma (06/18/2025 12:22 AM EDT) Narrative Authorizing ProviderResult TypeResult StatusJulienne Renteria MDBLOOD TRANSFUSION ORDERABLESFinal Result * Blood culture, peripheral #2 (06/17/2025 3:09 PM EDT) Only the most recent of2 resultswithin the time period is included. ComponentValueRef RangeTest MethodAnalysis TimePerformed AtPathologist Signature Blood CultureNo growth at 5 days SABI 06/22/2025 4:[address] [facility] ([place])Specimen (Source)Anatomical Location / LateralityCollection Method / VolumeCollection TimeReceived TimeBlood Venous blood specimen / UnknownVenipuncture / Ticaadt6706/17/2025 3:09 PM EDT 06/17/2025 3:17 PM EDT Narrative Authorizing ProviderResult TypeResult StatusFadi Safi [facility] MICROBIOLOGY - GENERAL ORDERABLESFinal ResultPerforming OrganizationAddressCity/State/ZIP Code Phone Number [facility] ([place]) [address] [place] [address] * (ABNORMAL) Hepatic function panel (06/17/2025 10:40 AM EDT)ComponentValueRef RangeTest MethodAnalysis TimePerformed AtPathologist SignatureTotal Bilirubin 0.80.3 - 1.0 mg/dL06/17/2025 12:[address] [facility] ([facility])Bilirubin, Direct0.20 - 0.2 mg/dL06/17/2025 12:[address] [facility] ([facility]) Alkaline Osagfjlrbkx6872 - 104 U/L06/17/2025 12:[address] [facility] ([facility])AST8(L)13 - 39 U/L06/17/2025 12:[address] [facility] ([facility])ALT (SGPT)4(L)7 - 52 U/L06/17/2025 12:[address] [facility] ([facility])Total Protein5.2(L)6.0 - 8.3 g/dL06/17/2025 12:[address] [facility] ([facility]) Albumin3.0(L)3.5 - 5.7 g/dL06/17/2025 12:[address] [facility] ([facility]) Specimen (Source)Anatomical Location / LateralityCollection Method / Volume Collection TimeReceived TimeBloodVenous blood specimen / UnknownExisting Catheter / Ccvslmt0306/17/2025 10:40 AM EDT06/17/2025 10:47 AM EDT Narrative Authorizing ProviderResult TypeResult StatusJustin Cowan MDLAB BLOOD ORDERABLES Final ResultPerforming OrganizationAddressCity/State/ZIP CodePhone Number [facility] ([facility]) [address] [place] [address] * (ABNORMAL) Arterial Blood Gas Complete (06/17/2025 4:02 AM EDT) Only the most recent of7 resultswithin the time period is included. ComponentValueRef RangeTest MethodAnalysis TimePerformed AtPathologist Signature pH, Arterial7.367.35 - 7.4508 4:02 AM [facility] RESPIRATORY THERAPYpCO2, Tdkmuszj1084 - 45 mmHg06/17/2025 4:02 AM [facility] RESPIRATORY THERAPYpO2, Hvqxdfhd082(H)83 - 108 mmHg06/17/2025 4:02 AM [facility] RESPIRATORY THERAPYHCO3, Fobabakl48.3(L)21.0 - 28.0 mmol/L06/17/2025 4:02 AM [facility] RESPIRATORY THERAPY O2 Sat, Equtzxub467.094.0 - 100.0 %06/17/2025 4:02 AM [facility] RESPIRATORY THERAPYBase Excess, Arterial-4.6(L)-2.0 - 3.0 mmol/L06/17/2025 4:02 AM [facility] RESPIRATORY THERAPYCalcium Ionized, Arterial1.171.13 - 1.32 mmol/L06/17/2025 4:02 AM [facility] RESPIRATORY THERAPYSodium, Jpcbmmyq364202 - 146 mmol/L06/17/2025 4:02 AM [facility] RESPIRATORY THERAPYPotassium, Arterial3.2(L)3.4 - 5.2 mmol/L 06/17/2025 4:02 AM [facility] RESPIRATORY THERAPYChloride, Gwpoxsob793(H)98 - 107 mmol/L06/17/2025 4:02 AM [facility] RESPIRATORY THERAPYGlucose, Lnwnbxqk459(H)65 - 95 mg/dL06/17/2025 4:02 AM [facility] RESPIRATORY THERAPYLactate, Arterial0.800.36 - 1.39 mmol/L06/17/2025 4:02 AM [facility]IR[facility]emat[facility], Arterial 29(L)37 - 50 %06/17/2025 4:02 AM [facility] RESPIRATORY THERAPYHemoglobin, Arterial 9.6g/dL06/17/2025 4:02 AM [facility]IR[facility]ITALOxyhemoglobin, Ppjujnyu17.7 (H)94.0 - 97.0 %06/17/2025 4:02 AM [facility] RESPIRATORY THERAPYMethemoglobin, Arterial0.60.0 - 1.5 %06/17/2025 4:02 AM [facility] RESPIRATORY THERAPY Carboxyhemoglobin, Arterial1.8%06/17/2025 4:02 AM [facility] RESPIRATORY THERAPY Deoxyhemoglobin, Arterial0.0%06/17/2025 4:02 AM [facility] RESPIRATORY THERAPY Dbxevbtulky62.0??C08 4:02 AM [facility] RESPIRATORY NYCGDDWMaC595.0% 06/17/2025 4:02 AM [facility] RESPIRATORY THERAPYTotal Minute Volume9.9L06/17/2025 4:02 AM [facility] RESPIRATORY EEONBKJLMAZ9ut H2O06/17/2025 4:02 AM [facility] RESPIRATORY THERAPYPF Ibyuv369nkVy49/30/2025 4:02 AM [facility] RESPIRATORY THERAPY A-qYg2443wtTk48/30/2025 4:02 AM [facility] RESPIRATORY THERAPYpaO2/pAO20.45mmHg 06/17/2025 4:02 AM [facility] RESPIRATORY THERAPYSpecimen (Source)Anatomical Location / LateralityCollection Method / VolumeCollection TimeReceived TimeBlood Arterial blood specimen / Pisdofr9406/17/2025 4:02 AM EDT06/17/2025 4:02 AM EDT Narrative Authorizing ProviderResult TypeResult StatusJulienne Renteria MDLAB BLOOD ORDERABLESFinal ResultPerforming OrganizationAddressCity/State/ZIP CodePhone Number [facility] RESPIRATORY THERAPY [address] [place] [address], [place] * Lactic acid with 4 hour reflex (06/17/2025 3:47 AM EDT)ComponentValueRef Range Test MethodAnalysis TimePerformed AtPathologist SignatureLactate0.80.5 - 2.2 mmol/L06/17/2025 4:20 AM [facility] ([facility])Specimen (Source) Anatomical Location / LateralityCollection Method / VolumeCollection Time Received TimeBloodVenous blood specimen / UnknownArterial Line / Unknown 06/17/2025 3:47 AM EDT06/17/2025 3:56 AM EDT Narrative Authorizing ProviderResult TypeResult StatusJulienne ENGLISH BLOOD ORDERABLESFinal ResultPerforming OrganizationAddressCity/State/ZIP CodePhone Number [facility] ([place]) [address] [place] [address] * HEPTEM C (06/17/2025 12:32 AM EDT)ComponentValueRef RangeTest MethodAnalysis TimePerformed AtPathologist SignatureHEPTEM C CLOTTING [id number] - 215 s 06/17/2025 12:32 AM [facility] RESPIRATORY THERAPYHEPTEM C AMPLITUDE 5 ZHF7770 - 51 mm06/17/2025 12:32 AM [facility] RESPIRATORY THERAPYHEPTEM C AMPLITUDE 10 MIN 5644 - 61 mm06/17/2025 12:32 AM [facility] RESPIRATORY THERAPYHEPTEM C AMPLITUDE 20 AIU9256 - 67 mm06/17/2025 12:32 AM [facility] RESPIRATORY THERAPYHEPTEM C MAXIMUM CLOT FFXKYAKH2349 - 69 mm06/17/2025 12:32 AM [facility] RESPIRATORY THERAPYSpecimen (Source)Anatomical Location / LateralityCollection Method / VolumeCollection TimeReceived FktwDgftt74/30/2025 12:32 AM EDT06/17/2025 12:32 AM EDT Narrative Authorizing ProviderResult TypeResult StatusJulienne Renteria [facility] BLOOD ORDERABLESFinal ResultPerforming OrganizationAddressCity/State/ZIP CodePhone Number [facility] RESPIRATORY THERAPY [address] [place] [address], [place] * (ABNORMAL) FIBTEM C (06/17/2025 12:32 AM EDT)ComponentValueRef RangeTest MethodAnalysis TimePerformed AtPathologist SignatureFIBTEM C AMPLITUDE 5 MIN17 (H)5 - 16 mm06/17/2025 12:32 AM [facility] RESPIRATORY THERAPYFIBTEM C AMPLITUDE 10 MIN19(H)6 - 17 mm06/17/2025 12:32 AM [facility] RESPIRATORY THERAPYFIBTEM C AMPLITUDE 20 MIN20(H)6 - 18 mm06/17/2025 12:32 AM [facility] RESPIRATORY THERAPY FIBTEM C MAXIMUM CLOT ZUDKFZUF10(H)6 - 19 mm06/17/2025 12:32 AM [facility] RESPIRATORY THERAPYSpecimen (Source)Anatomical Location / LateralityCollection Method / VolumeCollection TimeReceived YxyeEtkzj03/30/2025 12:32 AM EDT 06/17/2025 12:32 AM EDT Narrative Authorizing ProviderResult TypeResult StatusJulienne Renteria [facility] BLOOD ORDERABLESFinal ResultPerforming OrganizationAddressCity/State/ZIP CodePhone Number [facility] RESPIRATORY THERAPY [address] [place] [address], [place] * (ABNORMAL) EXTEM C (06/17/2025 12:32 AM EDT)ComponentValueRef RangeTest Method Analysis TimePerformed AtPathologist SignatureEXTEM C CLOTTING [id number] - 73 s 06/17/2025 12:32 AM [facility] RESPIRATORY THERAPYEXTEM C AMPLITUDE 5 HLD5668 - 52 mm06/17/2025 12:32 AM [facility] RESPIRATORY THERAPYEXTEM C AMPLITUDE 10 MIN60 45 - 62 mm06/17/2025 12:32 AM [facility] RESPIRATORY THERAPYEXTEM C AMPLITUDE 20 GKO3688 - 69 mm06/17/2025 12:32 AM [facility] RES[facility]IR[facility]ORY THERAPYEXTEM C MAXIMUM CLOT NDTHXFMF4818 - 72 mm06/17/2025 12:32 AM [facility] RESPIRATORY THERAPYEXTEM C LYSIS INDEX 60 XBH0711 - 100 %06/17/2025 12:32 AM [facility] RESPIRATORY THERAPYEXTEM C MAXIMUM LYSIS7(H)0 - 6 %06/17/2025 12:32 AM [facility] RESPIRATORY THERAPYComment:[place]^Preliminary ResultSpecimen (Source)Anatomical Location / LateralityCollection Method / VolumeCollection TimeReceived TimeBlood 06/17/2025 12:32 AM EDT06/17/2025 12:32 AM EDT Narrative Authorizing ProviderResult TypeResult StatusJulienne Renteria MDLAB BLOOD ORDERABLESFinal ResultPerforming OrganizationAddressCity/State/ZIP CodePhone Number [facility] RES[facility]IR[facility] THERAPY [address] [place] [address], * INTEM C (06/17/2025 12:32 AM EDT)ComponentValueRef RangeTest MethodAnalysis TimePerformed AtPathologist SignatureINTEM C CLOTTING [id number] - 205 s 06/17/2025 12:32 AM [facility] RESPIRATORY THERAPYINTEM C AMPLITUDE 5 BXM8409 - 54 mm06/17/2025 12:32 AM [facility] RESPIRATORY THERAPYINTEM C AMPLITUDE 10 MIN58 46 - 63 mm06/17/2025 12:32 AM [facility] RESPIRATORY THERAPYINTEM C AMPLITUDE 20 TKB6061 - 68 mm06/17/2025 12:32 AM [facility] RESPIRATORY THERAPYINTEM C MAXIMUM CLOT IJRHYDLJ7553 - 70 mm06/17/2025 12:32 AM [facility] RESPIRATORY THERAPYINTEM C LYSIS INDEX 60 LNA2749 - 100 %06/17/2025 12:32 AM [facility] RESPIRATORY THERAPYINTEM C MAXIMUM LYSIS70 - 7 %06/17/2025 12:32 AM [facility] RESPIRATORY THERAPYComment:[place]^Preliminary ResultSpecimen (Source)Anatomical Location / LateralityCollection Method / VolumeCollection TimeReceived TimeBlood 06/17/2025 12:32 AM EDT06/17/2025 12:32 AM EDT Narrative Authorizing ProviderResult TypeResult StatusBarneyll Dexter YBARRALAB BLOOD ORDERABLESFinal ResultPerforming OrganizationAddressCity/State/ZIP CodePhone Number [facility] RESPIRATORY THERAPY [address] [place] [address], * Histology - tissue exam (06/17/2025 12:17 AM EDT)ComponentValueRef RangeTest MethodAnalysis TimePerformed AtPathologist SignatureCase ReportSurgical Pathology ?Case: [id number] ? Authorizing Provider: ??Roberth Cowan MD ? Collected: ? 06/17/2025 0017 ? Ordering Location: ? [facility] Main Operating Room ?? Received: ?06/20/2025 0833 ? Pathologist: ? Ta Tobias MD ? Specimens: ?? A) - Gastric, Gastrojejunostomy ? B) - Gastric, RENE ? 06/21/2025 4:36 PM [facility] ([facility])Final DiagnosisA. Labeled gastrojejunostomy : Ulcerated small bowel with acute serositis and fibrovascular adhesions. No malignancy identified. Stapled jejunal resection margin viable. B. Labeled RENE : Benign small bowel. No activity, celiac disease, dysplasia or malignancy identified. Resection margins viable.06/21/2025 4:[address] [facility] ([facility]) at 1636 EDTClinical InformationPost-Op Diagnoses K92.0 - Hematemesis, unspecified whether nausea present [ICD-10-CM] K28.9 - Marginal ulcer [ICD-10-CM] 06/21/2025 4:36 PM [facility] ([facility])Gross DescriptionA. Gastric. The specimen is received in formalin labeled Jamarcus García and Gastrojejunostomy. It consists 10.0 x 5.0 x 4.0 cm distorted gastrojejunostomy specimen. One end is blunted and sac-like/ out-pouched and the opposing end is closed with a line of silver metallic maría elena. There is a 6.5 x 3.5 cm flores smural defect with partially cauterized and partially rolled/ [...] transmural defect. Gross photographs are taken and hospital insurance representative sections are submitted as follows: A1-A3: Fibrotic central area A4: Defect, outpouched end A5: Defect A6: Jejunal margin, en face Peace Ramires, Pathologists' Signing Teacher student Katharina Perez Pathologists' Signing Teacher Marija Gastric. The specimen is received in formalin labeled Jamarcus Cha. It consists of a 14.3 x 10.2 cm unoriented portion of small bowel received with 2 stapled margins and scant attached adipose tissue. The serosal surface is austin- pink and smooth; the mucosa is austin-pink, folded, and glistening. No lymph nodes are identified. Screw Machine Hand sections are submitted in 3 cassettes with the margins in B1-B2. Peace Ramires Pathologists' Signing Teacher student 06/21/2025 4:[address] [facility] ([facility])Microscopic Description Microscopic examination performed.06/21/2025 4:[address] [facility] ([facility])Specimen (Source)Anatomical Location / LateralityCollection Method / VolumeCollection TimeReceived TimeTissue (Gastric)06/17/2025 12:17 AM EDT 06/20/2025 8:33 AM EDTComment:Pre-op diagnosis: Hematemesis, unspecified whether nausea present [K92.0] Marginal ulcer [K28.9]Tissue specimen (specimen) (Gastric)06/17/2025 1:19 AM EDT 06/17/2025 1:42 PM EDTComment:Pre-op diagnosis: Hematemesis, unspecified whether nausea present [K92.0] Marginal ulcer [K28.9] Narrative Authorizing ProviderResult TypeResult StatusJustin [facility] MDLAB PATHOLOGY ORDERABLESFinal ResultPerforming OrganizationAddressCity/State/ZIP CodePhone Number [facility] ([place]) [address] [place] [address] * Prepare fresh frozen plasma: 1 Units (06/16/2025 8:10 PM EDT)ComponentValueRef RangeTest MethodAnalysis TimePerformed AtPathologist SignaturePRODUCT CODE [id number] BLOOD BANKUnit [id number] BLOOD BANKUnit ABOAUT BLOOD BANKUnit RhPOSKAYENTA HEALTH CENTER BLOOD BANKDispense StatusTRKAYENTA HEALTH CENTER BLOOD BANKBlood Expiration [id number] BLOOD BANKProduct Blood Ekzb8899DMYT BLOOD BANKUnit Lkbfjr266rSMYBY BLOOD BANKSpecimen (Source)Anatomical Location / LateralityCollection Method / VolumeCollection TimeReceived TimeBloodVenous blood specimen / Unknown Narrative Authorizing ProviderResult TypeResult StatusJill Dexter MDBLOOD BANK PRODUCT ORDERABLESFinal ResultPerforming OrganizationAddressCity/State/ZIP Code Phone Number [facility] BLOOD B[facility] * EGD (06/16/2025 6:26 PM EDT)Anatomical RegionLateralityModalityOtherSpecimen (Source)Anatomical Location / LateralityCollection Method / VolumeCollection TimeReceived Time Narrative 06/16/2025 6:27 PM EDT Table formatting from the original result was not included. Esophagogastroduodenoscopy (EGD) Procedure Note Procedure: ??EGD with injection and clipping Indications: ??64 y.o. adult with upper GI bleeding Hematemesis, unspecified whether nausea present Sedation: ??General Medications: pantoprazole (ProtoNix) 80 mg in sodium chloride 0.9 % 100 mL (0.8 mg/mL) infusion 192 mg* *From user-documented volume carbidopa-levodopa (Sinemet CR) 25-100 mg ER tablet 1 tablet 0 tablet* *Some administrations are not included in total carbidopa-levodopa (Sinemet) 25-100 mg per tablet 1 tablet 0 tablet* *Some administrations are not included in total norepinephrine in sodium chloride 0.9 % (Levophed) 8 mg/250ml infusion Cannot be calculated* *Total user-documented volume 199.16 mL may contain volume from other administrations sodium chloride 0.9 % infusion 191.33 mL* *From user-documented volume sodium chloride 0.9 % infusion Not documented* *Total volume has not been documented. View each administration to see the amount administered. dexmedeTOMIDine in NS (Precedex) 400 mcg in 100 mL (4 mcg/mL) infusion Cannot be calculated* *Total user-documented volume 195.75 mL may contain volume from other administrations lactated Ringer's infusion 2,188.33 mL* *From user-documented volume vasopressin 0.2 unit/mL infusion Cannot be calculated* *Total user-documented volume 183 mL may contain volume from other administrations EPINEPHrine (Adrenalin) 1 mg/10mL injection 2 mL (Totals for administrations occurring from 1631 to 1810 on 06/16/25) Attending Physician: ??Edd Law MD Signing Teacher: ??None Procedure Details: Informed consent was obtained for the procedure, including sedation. Risks of infection, perforation, hemorrhage, adverse drug reaction, and aspiration were discussed. The patient was placed in the left lateral decubitus position. The patient was monitored continuously with ECG tracing, pulse oximetry, blood pressure monitoring, and direct observation. ?? The gastroscope was inserted into the mouth and advanced under direct vision to proximal jejunum. ??A careful inspection was made as the gastroscope was withdrawn, including a retroflexed view of the proximal stomach; findings and interventions are described below. Appropriate photodocumentation was obtained. Findings: Normal appearing esophagus Gastric anatomy consistent with rene-en-y gastric bypass with gastric contents of a large amount of blood and clot. ??A 2cm ulcer was found in the gastric remnant which was clean based. ??The GJ anastomosis was found with large adherent clot, the clot was removed with suction and upon clot removal pulsatile bleeding developed. ??The area which appeared to be bleeding was found on the jejunal side of the anastomosis. ??Bleeding was stopped with epinephrine injection with 2-3 ml of 1:10,000 epinephrine. ?? The scope was withdrawn and distal attachment cap was placed before reinsertion to better attempt to visualize the area of bleeding. ??The entire side of the jejunal side of the GJ anastomosis was a large fully circumferential marginal ulcer that extended 5-6cm distal to the anastomosis. ??Due to the position and tight angulation to the bleeding area a clip was placed on the anastomosis nearest to the bleeding source. ?? The efferent limb appeared to be normal. ? Specimens: No specimens collected Complications: ??None ? Estimated blood loss: ??50 cc Disposition: ??ICU ? Condition: unstable Impression: ?? Large anastomotic ulcer of rene-en-y with active bleeding stopped with epinephrine injection due to location a single hemoclip was placed nearest to the bleeding source 2cm clean based gastric ulcer Recommendations: Surgical team was contacted mid procedure to assess He will be transferred to SICU for resuscitation and optimization of coagulation factors Will recommend angiography and embolization vs surgical revision Will defer to the surgical team for further management Attending Attestation: I performed the procedure. Authorizing ProviderResult TypeResult StatusTaya Quintero CNPENDOSCOPY PROCEDURE ORDERABLESFinal Result * Platelet Inhibition, P2Y12 (06/16/2025 3:23 PM EDT)ComponentValueRef RangeTest MethodAnalysis TimePerformed AtPathologist SignaturePRU [id number] - 376 PRU 06/16/2025 3:[address] [facility] ([facility])Specimen (Source)Anatomical Location / LateralityCollection Method / VolumeCollection TimeReceived Time Blood06/16/2025 3:23 PM EDT06/16/2025 3:23 PM EDT Narrative Authorizing ProviderResult TypeResult StatusLuciano Woodard MDLAB BLOOD ORDERABLES Final ResultPerforming OrganizationAddressCity/State/ZIP CodePhone Number [facility] ([facility]) [address], [place] [id number] * Platelet Inhibition, P2Y12 Draw (06/16/2025 2:57 PM EDT)Specimen (Source) Anatomical Location / LateralityCollection Method / VolumeCollection Time Received TimeBloodVenous blood specimen / UnknownArterial Line / Unknown 06/16/2025 2:57 PM EDT06/16/2025 3:04 PM EDT Narrative Authorizing ProviderResult TypeResult StatusJulienne Renteria MDLAB BLOOD ORDERABLESFinal ResultPerforming OrganizationAddressCity/State/ZIP CodePhone Number [facility] ([facility]) [address] [place] [address] * (ABNORMAL) Protime-INR (06/16/2025 10:49 AM EDT) Only the most recent of2 resultswithin the time period is included. ComponentValueRef RangeTest MethodAnalysis TimePerformed AtPathologist Signature Iegjobc29.5(H)12.3 - 14.8 Onsvhff3806/16/2025 11:[address] [facility] [place])INR1.33(H)0.90 - 1.1008 11:[address] [facility] [place]) Comment: [facility] RECOMMENDED INR FOR WARFARIN THERAPY CONDITION ?INR PROPHYLAXIS OF VENOUS THROMBOSIS ? 2-3 (HIGH-RISK SURGERY) TREATMENT OF VENOUS THROMBOSIS ? 2-3 TREATMENT OF PULMONARY EMBOLISM ?2-3 PREVENTION OF SYSTEMIC EMBOLISM: ? 2-3 ?ACUTE MYOCARDIAL INFARCTION ?TISSUE HEART VALVES ?VALVULAR HEART DISEASE ?ATRIAL FIBRILLATION ?RECURRENT SYSTEMIC EMBOLISM MECHANICAL HEART VALVE ? 2.5-3.5 FROM: ORAL ANTICOAGULANTS. ??MECHANISM OF ACTION, CLINICAL EFFECTIVENESS, AND OPTIMAL THERAPEUTIC RANGE. ??CHEST 1995;108:231S-246S. Specimen (Source)Anatomical Location / LateralityCollection Method / Volume Collection TimeReceived TimeBloodVenous blood specimen / UnknownArterial Line / Tnfywrg7606/16/2025 10:49 AM EDT06/16/2025 10:57 AM EDT Narrative Authorizing ProviderResult TypeResult StatusJulienne Renetria MDCHICHI BLOOD ORDERABLESFinal ResultPerforming OrganizationAddressCity/State/ZIP CodePhone Number [facility] [place]) [address] [place] [address] * ABDOMINAL ANGIOGRAM (06/15/2025 5:18 PM EDT)Anatomical RegionLaterality ModalityOtherSpecimen (Source)Anatomical Location / LateralityCollection Method / VolumeCollection TimeReceived Time Narrative 06/15/2025 6:00 PM EDT This order was resulted via OpNote or Post Procedure Note. If those notes are not displayed in this report, please refer to the Notes tab. Authorizing ProviderResult TypeResult StatusMunier Naal MDCV INVASIVE VASCULAR PROCEDURESFinal Result * Peripheral IV (06/15/2025 4:19 PM EDT) Narrative Khushbu Mathew CAA - 06/15/2025 4:19 PM EDT JOSIE Zapata 06/15/2025 4:33 PM Peripheral IV Date/Time: 06/15/2025 4:19 PM Inserted by: Leda Pitts MD Placement Needle size: 14 G Laterality: right Location: external jugular Local anesthetic: none Site prep: alcohol Technique: anatomical landmarks Attempts: 1 Authorizing ProviderResult TypeResult Tammy Pitts MDANESTHESIA ORDERABLESFinal Result * ANESTHESIA ARTERIAL LINE PLACEMENT (06/15/2025 4:15 PM EDT) Narrative Leda Pitts MD - 06/15/2025 4:15 PM EDT Leda Pitts MD 06/15/2025 4:51 PM Arterial Line: Date/Time: 06/15/2025 4:15 PM An arterial line was placed Procedure performed using ultrasound guidance.in the ICU for the following indication(s): continuous blood pressure monitoring and blood sampling needed. A 20 G (size), 2 inch (length), Angiocath (type) catheter was placed, Seldinger technique used , into the Left radial artery, secured by Biodisc/Biopatch, tape, Tegaderm and suture. Events: patient tolerated procedure well with no complications. Medications Administered lidocaine (XYLOCAINE) 1 % SubQ - infiltration 1 mL - 06/15/2025 4:15:00 PM Additional notes: Sterile precautions used, including, if applicable: Gloves, Hat, Mask, Skin prep, Sterile drape, And Ultrasound probe cover. VSS. Staffing Performed: resident/NEWSPAPER ILLUSTRATOR/CAA Anesthesiologist: Leda Pitts MD Resident/NEWSPAPER ILLUSTRATOR: Mateus Cool MD Performed by: Mateus Cool MD Authorized by: Leda Pitts MD ?? Authorizing ProviderResult TypeResult StatusRavinderradha Pitts MDANESTHESIA ORDERABLESFinal Result * EGD (06/15/2025 3:14 PM EDT)Anatomical RegionLateralityModalityEndoscopy Specimen (Source)Anatomical Location / LateralityCollection Method / Volume Collection TimeReceived Time Narrative 06/15/2025 3:39 PM EDT Esophagogastroduodenoscopy (EGD) Procedure Note Procedure: ??EGD Indications: ??64 y.o. 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 Risks of infection, perforation, hemorrhage, adverse drug reaction, and aspiration were discussed. The patient was placed in the left lateral decubitus position. The patient was monitored continuously with ECG tracing, pulse oximetry, blood pressure monitoring, and direct observation. ?? The gastroscope was inserted into the mouth and advanced under direct vision to proximal jejunum. ??A careful inspection was made as the gastroscope was withdrawn, including a retroflexed view of the proximal stomach; findings and interventions are described below. Appropriate photodocumentation was obtained. Findings: The gastroscope was introduced into the oral cavity with evidence of blood in the distal oropharynx. ??Suctioned aggressively. ??The scope was introduced into the esophagus which was normal-appearing with evidence of a moderate amount of refluxing old blood. ??Suctioned aggressively. Upon entrance into the stomach, there appeared to be surgical anatomy consistent with Rene-en-Y gastric bypass with large gastric pouch however visualization of surgical anatomy was limited due to the degree of old blood and blood clots noted throughout the entire stomach The gastroscope was manipulated around the blood clots and what appeared to be the Rene limb of Rene-en-Y gastric bypass was intubated with no evidence of mucosal abnormality. ??Additionally, what appeared to be the blind limb was visualized with no mucosal abnormality identified The standard gastroscope was exchanged for therapeutic endoscope which was reintroduced down into the gastric pouch. ??Aggressive suctioning was completed however it remained challenging to identify an active source of bleeding. ??Within the limitations of very obscured visualization, there appeared to be a large GJ anastomotic ulcer, however based on the amount of old blood within the stomach, this cannot be confirmed. ??Patient became progressively hypotensive with a refluxing of blood into the esophagus and up towards the airway and therefore the case was aborted and vascular surgery was promptly called for further evaluation. Specimens: No specimens collected Complications: ??None ? Estimated blood loss: ??Minimal Disposition: ??ICU ? Condition: unstable Impression: ?? Normal-appearing proximal, mid and distal esophagus Surgical anatomy which appeared to be consistent with Rene-en-Y gastric bypass however this was difficult to confirm due to the amount of blood within the entire examined stomach/jejunum Healthy appearing Rene limb of Rene-en-Y and healthy appearing blind limb Within the limitations of ??severely limited visualization, there appeared to be a large GJ anastomotic ulcer which correlates with CTA findings. ??No identifiable lesion or active source of bleeding was able to be identified due to the amount of old blood retained within the stomach. ??Case aborted due to the degree of hypotension, active regurgitation of blood into the esophagus towards the airway, and inability to visualize the source of bleeding Recommendations: Discontinue octreotide given no signs of varices Continue Protonix infusion Stat vascular surgery consultation for possible embolization versus surgical management given instability and inability to obtain hemostasis endoscopically Attending Attestation: I was present and scrubbed for the entire procedure. Authorizing ProviderResult TypeResult StatusSaSaint John's Health Systemleonel MDENDOSCOPY PROCEDURE ORDERABLESFinal Result * CTA Abdomen Pelvis W IV Contrast (06/15/2025 10:28 AM EDT)Anatomical Region LateralityModalityBody, Pelvis, AbdomenComputed TomographySpecimen (Source) Anatomical Location / LateralityCollection Method / VolumeCollection Time Received Time06/15/2025 11:41 AM EDT Impressions 06/15/2025 11:51 AM EDT * Active arterial bleed located immediately adjacent to an anastomotic staple line in the lesser curve of the gastric fundus/body. This finding was discussed with patient's nurse and caretaking resident in the MICU on 06/15/2025 at 11:[address] scans at this facility use dose modulation, iterative reconstruction, and/or weight based dosing when appropriate to reduce radiation dose to as low as reasonably achievable. Electronically signed: Gordon Larson MD. Narrative 06/15/2025 11:51 AM EDT CTA ABDOMEN/PELVIS HISTORY: Acute GI bleed COMPARISON: None TECHNIQUE: Multidetector CT angiogram through the abdomen and pelvis performed following the uncomplicated intravenous administration of 100 mL Omnipaque 350. 3-D maximum intensity projection reconstructions constructed under concurrent physician supervision on a independent workstation. 3-D images obtained to improve visualization of vascular detail. FINDINGS: There is a blush of contrast in the lesser curve of the stomach immediately adjacent to a staple line on the arterial phase images (series 10, image 36), which appears to slightly disperse and is more amorphous in appearance on the delayed images. This is compatible with an active arterial bleed in this location. Large amount of material seen within the gastric lumen. There are fairly extensive postoperative changes in the fundus and body of the stomach, with gastrojejunostomy also present. Remaining portions of the distal stomach are unremarkable. Small and large bowel are nondilated with no bowel wall thickening. Elevation of the left hemidiaphragm with adjacent left basilar atelectasis. The liver, adrenal glands, pancreas, and kidneys are unremarkable. The abdominal aorta, celiac axis, SMA, renal arteries, and GLADYS are patent. There is a suprapubic catheter in place. Status post bilateral hip arthroplasty. No free fluid in the abdomen or pelvis. No free intraperitoneal air. Visualized body wall structures are unremarkable. Multilevel degenerative and postoperative changes in the lumbar spine. 3D reformatted images confirm the source data findings. Procedure Note Gordon Larson MD - 06/15/2025 CTA ABDOMEN/PELVIS HISTORY: Acute GI bleed COMPARISON: None TECHNIQUE: Multidetector CT angiogram through the abdomen and pelvisperformed following the uncomplicated intravenous administration of 100 mL Jocabwedm370. 3-D maximum intensity projection reconstructions constructed underconcurrent physician supervision on a independent workstation. 3-D images obtainedto improve visualization of vascular detail. FINDINGS: There is a blush of contrast in the lesser curve of the stomachimmediately adjacent to a staple line on the arterial phase images (series 10, image36), which appears to slightly disperse and is more amorphous in appearance onthe delayed images. This is compatible with an active arterial bleed in this location. Large amount of material seen within the gastric lumen. Thereare fairly extensive postoperative changes in the fundus and body of thestomach, with gastrojejunostomy also present. Remaining portions of the distalstomach are unremarkable. Small and large bowel are nondilated with no bowelwall thickening. Elevation of the left hemidiaphragm with adjacent leftbasilar atelectasis. The liver, adrenal glands, pancreas, and kidneys areunremarkable. The abdominal aorta, celiac axis, SMA, renal arteries, and GLADYS are patent.There is a suprapubic catheter in place. Status post bilateral hip arthroplasty.No free fluid in the abdomen or pelvis. No free intraperitoneal air.Visualized body wall structures are unremarkable. Multilevel degenerative andpostoperative changes in the lumbar spine. 3D reformatted images confirm the source data findings. IMPRESSION: *Active arterial bleed located immediately adjacent to an anastomotic staple line in the lesser curve of the gastric fundus/body. This findingwas discussed with patient's nurse and caretaking resident in the MICU on06/15/2025 at 11:[address] scans at this facility use dose modulation, iterativereconstruction, and/or weight based dosing when appropriate to reduce radiation dose to aslow as reasonably achievable. Electronically signed: Gordon Larson MD. Authorizing ProviderResult TypeResult StatusFadi Safi MDIMG CT PROCEDURESFinal Result * XR chest 2 views (06/06/2025 1:48 PM EDT)Anatomical RegionLateralityModality ChestComputed Radiography Narrative Authorizing ProviderResult TypeResult StatusHistorical Provider MDIMG XR PROCEDURESFinal Result * ECG 12 lead (06/05/2025 4:29 PM EDT) Only the most recent of2 resultswithin the time period is included. ComponentValueRef RangeTest MethodAnalysis TimePerformed AtPathologist Signature Ventricular Klwo92ZQBPS MUSEAtrial Azyx87SGCEX MUSEPR Wxkcuxho780lyOA MUSEQRS ZAPPCTFF513stPJ MUSEQT Oswbsdyn968yeAT MUSEQTC CALCULATION(BAZETT)493msGE MUSE X-Mqze-30gkhmxqfXD MUSET Wave Ypdh965fqhyyykUD MUSESpecimen (Source)Anatomical Location / LateralityCollection Method / VolumeCollection TimeReceived Time 06/05/2025 4:26 PM EDT06/05/2025 4:58 PM EDT Impressions GE MUSE - [...] SAMER J. (55) on 06/05/2025 4:58:05 PM Authorizing ProviderResult TypeResult StatusPaarmando Lim MDECG ORDERABLESFinal ResultPerforming OrganizationAddressCity/State/ZIP CodePhone Number [facility] MUSE * IMPLANT PPM (06/05/2025 3:52 PM EDT)Anatomical RegionLateralityModalityOther Specimen (Source)Anatomical Location / LateralityCollection Method / Volume Collection TimeReceived Time Impressions 06/05/2025 3:57 PM EDT 1. Successful [...] any concerns. Antonio Lim MD Cardiac Electrophysiology ?? Narrative 06/05/2025 3:57 PM EDT Images from [...] using modified seldinger technique using a 5 Irish micro-puncture needle on two occasions and 0.35 [...] for the device above the muscle. 6/9 Irish Safesheaths were placed over the wire. An active fixation Biotronik pacing lead was then delivered through the 9Fsheath and Selectra IIID-65/42 sheath to the right ventricle. After confirmation of lead position on orthogonal views (BROOKS and LATVIAN) to confirm septal position, the screw was activated, and the lead was placed in the right ventricular mid cavity towards the septum. This was confirmed with contrast administration. After confirmation of good sensing parameters, injury pattern and pacing thresholds, 10V pacing was done and no diaphragmatic stimulation was noted. Paced QRS revealed width of 112ms. ?? It was then secured in the pocket using three 1-0 Silk sutures. Then an active fixation Biotronik lead was delivered through the 6Fsheath to the right atrial appendage. After confirmation of lead position on orthogonal views (BROOKS and LATVIAN), the screw was activated. Good sensing parameters, [...] EXAM: Patient was hemodynamically stable. COMPLICATIONS: None. Authorizing ProviderResult TypeResult StatusPaul RaphaelCentral [facility] ELECTROPHYSIOLOGY PROCEDURESFinal Result * Cardiac event monitor (05/10/2025 4:14 PM EDT)Anatomical RegionLaterality ModalityOther Narrative Authorizing ProviderResult TypeResult StatusHistorical Provider [facility] PROCEDURESFinal Result from Last 3 Months Insurance Advance Directives * Full Code (Latest Code Status on File) Date ActivatedDate InactivatedComments06/15/2025 5:51 AM06/28/2025 2:24 PM * Full Code Date ActivatedDate InactivatedComments06/05/2025 3:54 PM06/05/2025 7:49 PM Care Teams Team MemberRelationshipSpecialtyStart DateEnd Date Jaden Crabtree DO [facility] [place] [address] PCP - GeneralFamily Medicine04/25/25 Bhupendra Painter MD [address] [place] [phone] Consulting PhysicianUrology06/22/25
--- OUTSIDE RECORDS SUMMARY | 2025-08-09 11:39 | XMS_ITS | Clinical Summary ---
Author Organization [facility] Address [address] [place] [address] Care Team Providers Care Furniture Cleaner Name Role Phone Unavailable Primary Care Provider Unavailabl e Social History Tobacco UseTypesPacks/DayYears UsedDateSmoking Tobacco: Never AssessedSex and Gender InformationValueDate RecordedSex Assigned at BirthNot on fileLegal Sex Male12/31/2022 7:03 PM EDTGender IdentityNot on fileSexual OrientationNot on file Last Filed Vital Signs Vital SignReadingTime TakenCommentsBlood Jchgnreu648/6604 12:00 PM EDT Pulse--Temperature--Respiratory Rate--Oxygen Saturation--Inhaled Oxygen Concentration--Tnrpkf592 kg (246 lb)01/24/2019 12:00 PM TOBUyxbrk292.3 cm (5' 11 )01/24/2019 12:00 PM EDTBody Mass Index34.31001/24/2019 12:00 PM EDT Plan of Treatment Not on file
--- OUTSIDE RECORDS SUMMARY | 2025-08-09 11:39 | XMS_ITS ---
Author Organization [facility] Address [address] [place] [address] Care Team Providers Care Cosmetology Professor Name Role Phone Jaden Crabtree DO Primary Care Provider Bhupendra Painter MD Unavailable Active Problems ProblemNoted DateDiagnosed YycgOguxn53/28/0734Csgruzpydmc30/28/2025Marginal ulcer06/15/2025ftercare following surgery of the musculoskeletal system 04/25/20253634Dafewi44/08/5078Uqmznei39/08/2025PH with urinary obstruction 04/25/2025hest pain04/25/2025Degeneration of intervertebral disc of cervical uycteg0004/25/2025Degeneration of intervertebral disc of lumbosacral region 04/25/20255742Nimdcxbwrk01/08/2025owel iwqqihveyxlm78/08/2025Incontinence without sensory njhzdpugg41/08/2025Iron deficiency vunepp4604/25/2025Kidney stones 04/25/2025Other forms of scoliosis, site khpmluwirzy78/08/2025Recurrent UTI 04/25/2025Sciatica, left side04/25/2025History of sovyilchwvg02/08/2025Urinary gymqveptz03/08/2025UTI wxjjiwpv43/08/2025Sinus pause04/25/2025Second degree heart block by electrocardiogram (ECG)04/14/2025 Overview (04/14/2025): On event monitor Pause of 3 .58 seconds 10:30am Open wound of left great toe03/16/2025 Overview (04/25/2025): PVR with toe pressures Critical limb ischemia of both lower extremities with pbvvkquq33/11/2024 Overview (04/25/2025): Bilateral toe wounds nonhealing, no PVR or testing Encounter for abdominal aortic aneurysm (AAA) qjcivvzjw31/11/2024Acute kidney ctecbu0608/20/2023Irritant contact dermatitis due to fecal rsgrhneqvnsy80/06/2023 Pressure injury of coccygeal region, stage ressure injury of left foot, /06/2023 Overview (04/25/2025): Lateral foot Wound eschar of foot11/24/2022 Overview (04/25/2025): Right and left toes At risk for /03/2023Severe protein-calorie xiujzfzbjusn61/03/2023 COVID-19 virus aqfypdfsd20/02/9455Dhnv72/02/2023eneralized gnpapaje49/02/2023 Testicular ridsnsqhipvw05/21/2022Lumbar stenosis with neurogenic claudication 2Coronary xixairctsxrvrng04/14/2022History of fusion of cervical spine 10/10/2021hy-Drager edjucdju11/28/2021Walking difficulty due to ankle and foot 02/08/2021Falls yhtjbrwrji99/11/2020Orthostatic cdlbjujixet88/11/2020 Multifactorial gait ftcyirpd19/11/2020Near atyitxx4608/29/2020Right foot drop 08/29/2020Acute cystitis without /10/2020Tobacco use04/24/2020 Overview (04/25/2025): Last Assessment & Plan: Assessment: 60 pack years Currently 1/2 pack day since 01/2020 Cessation with strategies encouraged. Open wound of left heel11/08/2019Osteoarthritis of left hip11/08/2019Dysphagia 04/13/2019Psychosis due to Parkinson's lkkzpmb8704/13/2019MGUS (monoclonal gammopathy of unknown significance)09/15/2018Spinal cord stimulator status 09/07/2018 Overview (04/25/2025): Last Assessment & Plan: Assessment: for LBP generator in right hip Aware to bring remote on DOS Complete tear of right rotator cuff08/02/2018Iron deficiency anemia secondary to inadequate dietary iron znooaw6706/16/2018Nicotine use tetwolwd56/30/2018Obesity, Class I, BMI 30-34.9003/17/2018CRPS (complex regional pain syndrome type I) 03/16/2018Shoulder /13/2018Essential /19/2018 Overview (03/20/2025): Last Assessment & Plan: Assessment: Medication for Control. Date: BP: 04/24/2020 115/80 Stable. Brgwdn1712/07/20171968Flhmdkhelhjlvc94/19/2018 Overview (04/25/2025): Last Assessment & Plan: Assessment: stable on medication Essential fnemvo0610/27/2017Glenohumeral arthritis, left10/26/2017Arthritis of knee04/27/2017COPD with chronic /28/2017 Overview (03/20/2025): Last Assessment & Plan: Assessment: Managed with inhalers No supplemental oxygen use RA 04/24/20 1148 SpO2: 97% Stable. Type 2 diabetes dylhurfp19/28/2017Chronic pain eeyeihxc94/28/2017 Overview (04/25/2025): Last Assessment & Plan: Assessment: lower back pain s/p SCS 02/2018 Monitored by Pain Management ( 04/03/2020) Postlaminectomy syndrome of lumbar mabpno2106/30/20167951Xhguhhgdbjp71/22/2010 Frequency of hosbpbqzz42/08/2010Slow urinary qkvmqu5803/26/2010Impotence of organic omnqfu7110/08/2007Malignant neoplasm of skin of lip05/11/2007 Overview (04/25/2025): Last Assessment & Plan: Assessment: s/p removal Psychosexual dysfunction, lzmtsydboqx77/13/2006Urinary bpapvni1207/31/2006Brachial neuritis or luiwprbhudc91/30/2004Displacement of cervical intervertebral disc without cycamroote33/30/2004Displacement of thoracic intervertebral disc without qsnkdexfjs06/19/2004 Current Treatment and Therapy Plans No current plan information found. Past Treatment and Therapy Plans No past plan information found. Lifetime Dose Tracking * ChemicalLifetime DoseAutomatic EntryManual EntryFluoro Time11.7 minutes0 .7 minutesAir Rifeu208 mGy0 mJn022 mGy
--- OUTSIDE RECORDS SUMMARY | 2025-08-09 11:39 | XMS_ITS | Encounter Summary ---
Author Organization [facility] tem Address [id number] [address] [place] [address] Care Team Providers Care Wireworker Supervisor Name Role Phone Jaden Crabtree DO Primary Care Provider [phone] Encounter Details DateTypeDepartmentCare Team (Latest Contact Info)Ykhucadrwdq15/08/2025Travel Social History Tobacco UseTypesPacks/DayYears UsedDateSmoking Tobacco: FormerCigarettes Smokeless Tobacco: NeverAlcohol UseStandard Drinks/WeekCommentsNot Currently0 (1 standard drink = 0.6 oz pure alcohol)PHQ-2AnswerDate RecordedTotal Score21 08/23/2024hildcareAnswerDate PlnyxahgLdfuzouvuFmuqlhz98/21/2021mploymentAnswer Date MwosnjwuJykjwhcxegUqlzogb60/21/2021Hunger ScreeningAnswerDate Recorded Within the past 12 months we worried whether our food would run out before we got money to buy more.Never True03/16/2025Within the past 12 months the food we bought just didn't last and we didn't have money to get more.Never True 03/16/2025Purpose - LifeAnswerDate RecordedPurpose and direction in lifeUnknown 11/08/2020ex and Gender InformationValueDate RecordedSex Assigned at BirthNot on fileLegal LduYoac1111/08/2020 10:25 AM ESTGender IdentityNot on fileSexual OrientationNot on filedocumented as of this encounter Plan of Treatment DateTypeDepartmentCare Team (Latest Contact Info)Gszcbxlilfe87/25/2025 11:00 AM ESTOffice Visit [facility] of [address] [place] [phone] Tony Martin MD [address] [place] [address], [facility] [address] [place] [address] 11/30/2025 11:00 AM ESTOffice Visit [facility] Department of [address] [place] [phone] Lyn Lawton MD [address] [place] [address] [address] [place] [address] documented as of this encounter Goals GoalPatient Goal [...] filedocumented in this encounter Additional Health Concerns AssessmentNoted TimePHQ-9 Depression Total Score: 11:29 AM ESTA Body Mass Index follow-up plan has been documented for the aczzdcc3310/07/2024 3:14 PM ESTdocumented as of this encounter Care Teams Team MemberRelationshipSpecialtyStart DateEnd Date Jaden Crabtree DO [address] [place] [address] PCP - GeneralFamily Medicine01/17/21documented as of this encounter
--- OUTSIDE RECORDS SUMMARY | 2025-08-09 11:39 | XMS_ITS | Clinical Summary ---
Author Organization [facility] Address [address] [place] [address] Phone Care Team Providers Care Ceramic Tile Installation Helper Name Role Phone Barbie Crabtreett Eunice DO Primary Care Provider [phone] Social History Tobacco UseTypesPacks/DayYears UsedDateSmoking Tobacco: Never AssessedSex and Gender InformationValueDate RecordedSex Assigned at BirthNot on fileLegal Sex Male09/12/2022 8:17 PM ESTGender IdentityNot on fileSexual OrientationNot on file Last Filed Vital Signs Vital SignReadingTime TakenCommentsBlood Eummtepb53/6810 2:23 PM EDT Zddzo969608/16/2021 2:21 PM EDTTemperature--Respiratory Rate--Oxygen Saturation-- Inhaled Oxygen Concentration--Fkptnk814 kg (224 lb)08/16/2021 2:21 PM EDTHeight 177.8 cm (5' 10 )08/16/2021 2:21 PM EDTBody Mass Index32.141 2:21 PM EDT Plan of Treatment Health MaintenanceDue DateLast DoneCommentsCT Miycgvbuvwbk1958Colonoscopy 1958Colorectal Cancer Dazktztcl1958FIT-DNA (Cologuard)1958FIT 1958Lipid Panel1958 4328Bzrtevawoaapn1958Yearly Adult Physical 1958MMR Vaccines (1 of 1 - Standard series)1959Diabetes Screening 1976Hepatitis C Cecjxrthc39/25/1976Pneumococcal Vaccine (1 of 2 - PCV) 1977DTaP/Tdap/Td Vaccines (1 - Tdap)1980PSA Prostate Cancer Viagnaboi99/25/2008Zoster Vaccines (1 of 2)2008RSV High Risk: (Elderly (60+) or Population) (1 - Risk 60-74 years 1-dose series)2018 Influenza Vaccine (#1)2025OVID-19 Vaccine (1 - 2024- season)2025 HIB VaccinesAged OutNo longer eligible based on patient's age to complete this topicHPV VaccinesAged OutNo longer eligible based on patient's age to complete this topicHepatitis A VaccinesAged OutNo longer eligible based on patient's age to complete this topicHepatitis B VaccinesAged OutNo longer eligible based on patient's age to complete this topicIPV VaccinesAged OutNo longer eligible based on patient's age to complete this topicMeningococcal VaccineAged OutNo longer eligible based on patient's age to complete this topicRotavirus VaccinesAged Out No longer eligible based on patient's age to complete this topic Care Teams Team MemberRelationshipSpecialtyStart DateEnd Date Jaden Crabtree DO PCP - Zdpbhie46/29/21
--- OUTSIDE RECORDS SUMMARY | 2025-08-09 11:43 | XMS_ITS | CCD ---
Author Organization [facility] ion [facility] Care Team Providers Care Arson Investigator Name Role Phone RICCHETTI, SERGEY T Unavailable [...] Care Unavailable LEYDA, ELLEN Primary Care Physician MISC, DR MYERS Consulting Unavailable MISC, DR MYERS Admitting Unavailable KUNDavion, DR HUGHES Primary Care Unavailable MISC, DR MYERS Attending Unavailable TREVOR, DR DON Dawson Consulting Unavailable LEYDA ., MICHELL Attending Unavailable [...] Unavailable Kundavion, DO Hughes Primary Care Provider [phone] DO Bernice Shrestha Attending Provider IBARRA, Fidel [...] Provider Ellen Crabtree DO Primary Care Provider Benitez Ortega DO Emergency Provider Ellen Crabtree DO Attending Provider Heidy Marin MD Referring Provider [phone] Ellen Crabtree DO Primary Care Provider UnavailMercedez Botello MD Attending Provider Ellen Crabtree DO Primary Care Provider [phone] Ellen Crabtree DO Attending Provider Heidy Marin MD Referring Provider Mercedez Resendez MD Attending Provider LYN MACE Attending Unavailable LYN MACE Attending Unavailable RODRILYN BARRAZA Attending Unavailable LYN MACE Attending Unavailable LYN MACE Admitting Unavailable Romel Leonardo MD Attending Provider Unavailable Primary Care Provider Unavailabl e SAMIRA BOWDEN Attending Unavailable ELLEN CRABTREE Referring Unavailable ELLEN CRABTREE Primary Care Unavailable HEIDY MARIN Attending Unavailable MICHIS, ELLEN R Referring Unavailable KUNS, ELLEN R Primary Care Unavailable AMSDELL, LYN L Referring Unavailable KUNS, ELLEN R Primary Care Unavailable AMSDELL, LYN L Referring Unavailable KUNS, ELLEN R Primary Care Unavailable Kuns DO, Ellen Primary Care Provider [phone] Kuns DO, Ellen Attending Provider Abdoulaye Enrique DO Attending Provider Christian YBARRA, Steven Admit Provider Christian YBARRA, Steven Other Provider Neva RN, Aleshia Other Provider Unavailable Melisa RN, Rose Other Provider Unavailable Alex RN, Nellie Other Provider Unavailable Debbie RN, Kathy Other Provider Unavailable Leonard RN, Lorraine Other Provider Unavailable Christian RN, Dara Other Provider Unavailable Robyn YBARRA, Sandy Other Provider Tai Richardson DO Other Provider [phone] Havrey Pat MD Other Provider Skinny Jensen DO Other Provider Desmond YBARRA, David Other Provider Jacinta Sorensen MD Other Provider Romel Rojas DO Other Provider Unavailab sussy Rodriguez MD, Dillan Other Provider Unavailable Miryam Bell APRN Other Provider [phone] Lamont Sky MD Other Provider Sophie Trujillo MD Other Provider Unavailable Vandana Kerr MD Other Provider Romel Arevalo DO Other Provider Emelina Ojeda MD Other Provider Enrico Hammer MD Other Provider Italo DEMOGRAPHIC ANALYST-C, Elli Goemz Other Provider George YAN, Ferny Navarro Other Provider Unavailable Quintin Hanley MD Other Provider Tommy YBARRA, Arvind Other Provider Selwyn YBARRA, Gunnar Other Provider Unavailable Hector DOHamzah Other Provider Nicolasa Perez APRN Other Provider Van Orozco DO Other Provider Ashok YBARRA, Petty Navarro Other Provider Paradise Arias APRN Other Provider Heidy YAN, Paula Lofton Other Provider Ambar YBARRA, Radha Other Provider Unavailable Chato Rodriguez MD Other Provider Sergio Shah DO Other Provider Lydia YBARRA, Jama Bennett Other Provider Joshua Martin MD Other Provider Maribeth Zhang APRN Other Provider Unavailable Doug YBARRA, Jv Other Provider Jordin YBARRA, Steven Kim Other Provider [phone] Claude YBARRA, Dillan Ricardo Other Provider Jesus Watson MD Other Provider Rivka YAN, Adali Akhtar Other Provider [phone] Ruel Goncalves APRN Other Provider Fidelia Tarango RN Other Provider Unavailable Heriberto Campos MD Attending Provider [phone] Steven Gonzales MD Attending Provider Ellen Crabtree DO Primary Care Provider Ellen Crabtree DO Attending Provider [phone] Abdoulaye Gudino DO Attending Provider Steven Gonzales MD Admit Provider Steven Gonzales MD Other Provider Neva HAMILTON, Aleshia Other Provider Unavailable Melisa RN, Rose Other Provider Unavailable Alex RN, Nellie Other Provider Unavailable Debbie RN, Kathy Other Provider Unavailable Leonard RN, Lorraine Other Provider Unavailable Christian RN, Dara Other Provider Unavailable Sandy Carlson MD Other Provider Dylan DO, Tai Other Provider Bi YBARRA, Harvey Other Provider Camila LU, Skinny Other Provider Desmond YBARRA, David Other Provider Edu YBARRA, Jacinta Other Provider Crystal LU, Romel Other Provider Unavailab sussy Rodriguez MD, Dillan Other Provider Unavailable Miryam Bell APRN Other Provider Jose Daniel YBARRA, Lamont Other Provider [phone] Sophie Trujillo MD Other Provider Unavailable Usha YBARRA, Vandana Other Provider Irina LU, Romel Other Provider Emelina Ojeda MD Other Provider Jaquelin YBARRA, Enrico Other Provider Italo DEMOGRAPHIC ANALYST-C, Elli Gomez Other Provider George YAN, Ferny Navarro Other Provider Unavailable Quintin Hanley MD Other Provider Arvind Sanders MD Other Provider Selwyn YBARRA, Gunnar Other Provider Unavailable Hamzah Young DO Other Provider Chris YAN, Nicolasa Other Provider Van Orozco DO Other Provider Ashok YBARRA, Petty Navarro Other Provider Paradise Arias APRN Other Provider Mohamed RPG DEVELOPER, Paula C Other Provider Ambar YBARRA, Radha Other Provider Unavailable Jennifer YBARRA, Chato Gomez Other Provider Sergio Shah DO Other Provider Lydia YBARRA, Jama Bennett Other Provider Joshua Martin MD Other Provider [phone] Vicente RPG DEVELOPER, Maribeth Other Provider Unavailable Doug YBARRA, Jv Other Provider Steven Brenner MD Other Provider Claude YBARRA, Dillan Ricardo Other Provider Walter YBARRA, Jesus Other Provider Rivka RPG DEVELOPER, Adali Akhtar Other Provider Ivanna RPG DEVELOPER, Ruel Other Provider Emelina HAMILTON, Fidelia Other Provider Unavailable Andres YBARRA, Heriberto Currie Attending Provider Steven Gonzales MD Attending Provider [phone] Graciela Macias LPN Attending Provider Unavailable Fidel Ibarra MD Attending Provider LYN BANKS Attending Unavailable KUNS, ELLEN R Referring Unavailable KUNS, ELLEN R Primary Care Unavailable YLN BANKS Attending Unavailable KUNS, ELLEN R Referring Unavailable KUNS, ELLEN R Primary Care Unavailable LUIS, ROBERTH Referring Unavailable SAFI, DEVEN Referring Unavailable SAUMYA CHANDRA Referring Unavailable SHEILA, LISANDRO Attending Unavailable LUIS, ROBERTH Referring Unavailable LUIS, ROBERTH Referring Unavailable LORA RAMOS Attending Unavailable LORA RAMOS Admitting Unavailable LUIS, ROBERTH Attending Unavailable SUSAN JIMENEZ Admitting Unavailable ABDOULAYE ENRIQUE Referring Unavailable NAHERMINIO DOUGLAS Referring Unavailable RICHARD, LORA Referring Unavailable RICHARD, LORA Referring Unavailable JAC SALINAS Attending Unavailable RICHARD LORA Referring Unavailable LUIS, ROBERTH Attending Unavailable RICHARD LORA Referring Unavailable RICHARD, LORA Referring Unavailable VIVIAN CLARK Attending Unavailable SAUMYA CHANDRA Referring Unavailable LUIS, ROBERTH Referring Unavailable SAFI, DEVEN Referring Unavailable SAFI, DEVEN Referring Unavailable SUSANNAH MARKHAM Attending Unavailable LORA RAMOS Attending Unavailable BILL MACE Attending Unavailab sussy MaruMichelle Attending Unavailable Michelle Mahoney Attending Unavailable BILL MACE Attending Unavailab sussy RODRI, BILL Crum Attending Unavailab sussy MACE, BILL Crum Attending Unavailab Michelle Christianson Attending Unavailable RODRI, BILL Crum Attending Unavailab sussy RODRI, BILL Crum Attending Unavailab sussy MACE, BILL Crum Attending Unavailab Madeline Magallon Attending Unavailable Kuns, Ellen Primary Care Unavailable Kuns, Ellen Attending Unavailable Kuns, Ellen Admitting Unavailable Heidy Marin Referring Unavailable Romel Leonardo Attending Unavailable Romel Leonardo Admitting Unavailable Kuns, Ellen Primary Care Unavailable Kuns, Ellen Primary Care Unavailable Sarah De Jesus Attending Unavailable Sarah De Jesus Admitting Unavailable Kuns, Ellen Primary Care Unavailable Steven Gonzales Attending [...] Puckett Consulting Unavailable Ferny Vazquez Consulting Unavailable DoQuintin tovar Consulting Unavailab Arvind Fitch Consulting Unavailable Gunnar Samano Consulting Unavailable Hamzah Young Consulting Unavailable Nicolasa Perez Consulting Unavailable Van Orozco Consulting Unavailable Daromar, Oballyn M Consulting Unavailable Paradise Arias Consulting Unavailable Paula Webb Consulting Unavailable AlaRadha willson Consulting Unavailable Chato Rodriguez Consulting Unavailable Sergio Shah Consulting Unavailable Jama Espinoza Consulting Unavailable Joshua Martin Consulting Unava ilable Borisopenny, Maribeth Consulting Unavailable DougJv cox Consulting Unavailable JordinSteven lee Consulting Unavailable ChatDillan miller S Consulting Unavailable WatsonJesus drake Consulting Unavailable Adali Tineo Consulting Unavailable Bolzan-Jason, Nicoletto Consulting Unavaila viri Tarango Fidelia Consulting Unavailable Benitez Ortega Attending Unavailable Ellen Crabtree Primary Care Unavailable Benitez Ortega Admitting Unavailable DiabMercedez Attending Unavailable DiabMercedez Admitting Unavailable Fidel Ibarra Attending Unavailable Ibarra, Fidel Admitting Unavailable Allergies Allergy ClassificationReported Allergen(s)Allergy TypeDate of OnsetReaction(s) Facility (20 sources)celecoxib; Translations: [CELECOXIB]Drug Tqenpje16-24-7904Wjho, Hives, GI Upset, Weal (disorder)[facility] Repository (20 sources)clonazePAM; Translations: [CLONAZEPAM]Drug Emxsjhm28-20-7470Jizrbkx, Shortness Of Breath, Dyspnea (finding)[facility] Repository (20 sources)levoFLOXacin; Translations: [LEVOFLOXACIN]Drug Tvhxsws81-86-5765 Hives, Shortness Of Breath, Dyspnea (finding)[facility] Repository (9 sources)moxifloxacin; Translations: [MOXIFLOXACIN HCL]Drug Tdbaqzo20-18-3412 Rash, Hives, Itching, [facility] (20 sources)ERYTHROMYCIN BASE; Translations: [ERYTHROMYCIN BASE]Propensity to adverse reactions to drug (disorder)43-44-3693Hlfhr, Shortness of Breath [facility] Repository (7 sources)celecoxib; Translations: [CeleBREX]Drug Ismnrfi02-07-7198[facility] Repository (1 source)erythromycinDrug Wynjldf26-65-8964[facility] Repository (20 sources)levoFLOXacinDrug Yrnebqs63-93-5045SeicxgjIdoMag[facility] Rep[facility] (7 sources)moxifloxacin; Translations: [Avelox]Drug Entumsp06-05-7117[facility] Repository (5 sources)celecoxib; Translations: [CeleBREX CAPS]Drug AllergyGlencoe [facility] Health Servicesusky [facility] DO Work Phone: (5 sources)clonazePAM; Translations: [KlonoPIN TABS]Drug AllergyC[place] [address] DO Work Phone: (5 sources)levoFLOXacin; Translations: [Levaquin]Drug [facility] 250 DO Work Phone: (20 sources)moxifloxacin; Translations: [Avelox]Drug Aydojdv54-00-5315Czfqx, Shortness Of Breath, Dyspnea (finding), Eruption of skin (disorder), Itching (finding), Urticaria (disorder), Weal (disorder), Itching, [facility]Mer[facility] (5 sources)Erythromycin Derivatives; Translations: [Erythromycin Derivatives] Allergy to drug (finding)[facility] Work Phone: (2 sources)celecoxib; Translations: [Celebrex]Drug AllergyAquarium Life Customs (7 sources)clonazePAM; Translations: [Klonopin][facility] (20 sources)Erythromycin; Translations: [erythromycin]Drug Oyzxxit55-29-0904 Itching, Nausea And Vomiting, Nausea (finding)[employer] Other (2 sources)levoFLOXacin; Translations: [Levaquin]Drug AllergyAquarium Life Customs (2 sources)moxifloxacin; Translations: [Avelox]Drug AllergyVisualant (20 sources)pimavanserin; Translations: [PIMAVANSERIN]Drug Jirmtqq69-25-1180 [facility] (20 sources)moxifloxacin; Translations: [moxifloxacin]Drug Xrqluem74-47-4697 Unknown Reaction, [facility] Medications Current Medications MedicationDrug Class(es)DatesSig (Normalized)Sig (Original)acetaminophen 500 mg oral tablet (20 sources)Start: 87-70-2373Opktq: 04-19-2023 End: 78-46-0969Tcako: 04-19-2023 End: 60-06-0929jlhz 650 mg by mouth every six hoursAcetaminophen Discontinued 650 MG PO Q6H 0 April 19, 2023 12:00am January 06, 2024 4:08pmStart: 03-07-2022 End: 37-47-1564ifgm 2 tablets by mouth three times dailyacetaminophen (TYLENOL) 500 mg tablet 2 tablets by ORAL/FEEDING TUBE route three times daily. 42 tablet 0 12/06/2022 ActiveStart: 03-07-2022 End: 23-50-4175dfqu 1 tablet by mouth every four hours as needed for pain Acetaminophen 500 mg Tablet Discontinued 500 MG PO Q4H as needed for Pain 0 March 07, 2022 12:00am March 23, 2023 1:58pmStart: 06-60-4394kpae 650 mg by mouth every six hours as needed, then take 4000 mg by mouth every twenty-four hours as mg, Oral, EVERY 6 HOURS PRN, Starting on Thu02/07/22 at 1617, Until Discontinued, Pain Mild (1-3), Fever Maximum dose of acetaminophen is 4000 mg from all sources in 24 hours. Post-opStart: 02-17-2019 End: 56-74-9295Volzn: 02-17-2019 End: 49-57-6171jeuv 1 tablet by mouth every six hours as needed for pain Acetaminophen (Tylenol) 325 mg Tablet Discontinued 325 MG PO Q6H as needed for Pain February 17, 2019 12:00am March 07, 2022 9:03amTylenol 325 mg capsule take 1 capsule by oral route As needed unsure of doseComment on above:2 tablets by ORAL/FEEDING TUBE route three times daily.acetaminophen 300 mg / butalbital 50 mg / caffeine 40 mg oral capsule (2 sources)Barbiturate, Central Nervous System Stimulant, MethylxanthineStart: 35-16-0567Ucvum: 62-69-8481irsm 1 capsule by mouth every six hours as needed for [id number] 200 actuat albuterol 0.09 mg/actuat metered dose inhaler (20 sources)beta2-Adrenergic AgonistStart: 77-49-6097Pnrxa: 12-14-2024 End: 07-13-2980Uothb: 12-14-2024 End: 78-75-9535Mgekphvdv Sulfate (Ventolin Hfa) 90 mcg/actuation HFA aerosol inhaler Discontinued 1 INH INHALATIONEvery 6 hours as needed for shortness of breath or wheezing 8.5 December 14, 2024 1:00am June 28, 2025 2:42pm Start: 01-06-2024 End: 07-71-3909Uokmo: 01-06-2024 End: 82-01-5231kikt 3 mL by inhalation four times daily as neededAlbuterol Sulfate 2.5 mg /3 mL (0.083 %) solution for nebulization Discontinued MG INHALATION 2023 12:00am February 11, 2024 8:17am FreeTextSi mL prefilled vial Inhalation qid prn; Note: Source Status: Taking; Refills: 1; Provider: Leyda Hughes RStart: 03-23-2023 End: 03-24-8478Gsfgr: 03-23-2023 End: 98-15-5410dqno 2.5 mg by inhalation four times daily as neededAlbuterol Sulfate 2.5 mg /3 mL (0.083 %) Solution For Nebulization Discontinued 2.5 MG INHALATION Four times daily as needed for Shortness Of Breath March 23, 2023 12:00am April 19, 2023 8:43amStart: puff, Inhalation, PRN, Starting on Thu02/07/22 at 1617, Until Discontinued, Wheezing Initiate RT Bronchodilator Protocol: YesStart: 46-77-3269Pvhxesyck Sulfate 1.25 mg/3 mL INHALATION nebulizer solution Use 1 Ampule via nebulizer every 6 hours as needed for Wheezing/Shortness of Breath. 0 11/08/2019 ActiveStart: 02-17-2019 End: 92-22-3985Bhvlh: 02-17-2019 End: 28-47-2074afat 1.25 mg by inhalation four times daily as neededAlbuterol Sulfate 2.5 mg /3 mL (0.083 %) Solution For Nebulization Discontinued 1.25 MG INHALATION Four times daily as needed for Shortness Of Breath February 17, 2019 12:00am March 07, 2022 9:03amStart: 86-65-3317Pairgykkv Sulfate (2.5 MG/3ML) 0.083% 3 mL prefilled vial Inhalation qid prn for 30 day(s) Jan, Active Start: 08-35-2685Gpmpuwixk Sulfate (2.5 MG/3ML) 0.083% 3 mL prefilled vial Inhalation qid prn for 30 day(s) Jan, ActiveStart: 39-83-9153Jwryyuaqt Sulfate (2.5 MG/3ML) 0.083% as directed Inhalation qid prn prn Jan, Activetake 1 puff(s) by inhalation every six hours as neededalbuterol sulfate HFA 90 mcg/actuation aerosol inhaler inhale 1 puff (90 mcg) by inhalation route every 6 hours as needed unsure of doseComment on above:Use 1 Ampule via nebulizer every 6 hours as needed for Wheezing/Shortness of Breath. amoxicillin 875 mg / clavulanate 125 mg oral tablet (1 source)Penicillin-class AntibacterialStart: 76-88-9588kpov 1 tablet by mouth once dailyAugmentin 875 mg oral tablet = 1 tab(s), Oral, Daily, # 30 tab(s), Refills(s) 0, Pharmacy: [facility]5, 175, cm, 01/16/23 10:13:00 EDT, Height/Length Dosing, 92, kg, 01/16/23 10:13:00 EDT, Weight Dosing Start Date: 01/20/23 Status: Orderedatorvastatin 10 mg oral tablet (20 sources)HMG-CoA Reductase InhibitorStart: 09-17-2017 End: 48-37-1525lufe 1 tablet by mouth once dailyatorvastatin (LIPITOR) 10 mg tablet Take 1 tablet (10 mg total) by mouth daily. 30 tablet 1 02/19/2021 Active Comment on above:Take 10 mg by mouth once daily.augmented betamethasone 0.5 mg/ml topical cream (20 sources)CorticosteroidStart: 64-32-5307hwipffdmbkufp, augmented, (DIPROLENE) 0.05 % cream Apply 1 application topically daily. 30 g 02/19/2021 ActiveStart: 05-26-2017 End: 54-94-9941Cfxzdmp on above:APPLY TO THE AFFECTED AREA(S) ONCE DAILY carbidopa 25 mg / levodopa 100 mg extended release oral tablet (20 sources)Aromatic Amino Acid Decarboxylation Inhibitor, Aromatic Amino Acid Start: 52-90-0756Zdkpo: 06-43-4986Fymdzsdbj-Levodopa 25-100 mg tablet extended release Active 1 TAB PO Five times daily January 06, 2024 12:00am 1 tab @2am, 2 tabs @6am, 2 tabs@ 10 am , 1 tab @2pm, 1 tab @6pm, 1 tab @10pm orally as di rected; Note: Source Status: Takingused with sinemet IRStart: 01-06-2024 End: 53-41-6247Jqcbiczca-Levodopa 25-100 mg tablet Discontinued 1 TAB PO Five times daily January 06, 2024 12:00amApril 2024 9:44am FreeTextSi tabs @ 6am, 2 tabs @ 10am, 1 tab @ 2 pm, 1 tab @6pm Oral as directed; Note: Source Status: Taking do not eat an hour prior or after taking;Start: 08-07-2023 End: 74-45-5754idyksalgw-levodopa (SINEMET CR) 25-100 mg per CR tablet Indications: Parkinson's disease ([facility]) TAKE 1 TABLET BY MOUTH AT 2AM, 2 TABLETS AT 6AM AND 10AM, 1 TABLET AT 2PM, 6PM, AND 10PM. TAKE WITH SINEMET IR 240 tablet 11 08/31/2024 ActiveStart: 01-16-2023 End: 99-02-0406Zrhju: 64-58-3651nxwn 2 tablets by mouth once in the morning, then take 2 tablets by mouth in the morning, then take1 tablet by mouth in the evening, then take 6 tablets by mouth in the evening, then take 10 tabletsby mouth in the evening, then take 2 tablets by mouth in the morningcarbidopa- levodopa CR (SINEMET CR) 25-100 mg per tablet Take 2 tablets by mouth at 6 am, 2 tablets at 10 am, and 1 tablet at 2 pm, 6 pm, 10 pm and 2 am. 0 11/04/2022 ActiveStart: 02-18-2022 End: 28-89-8026fnjd 2 tablets by mouth twice dailyCarbidopa-Levodopa 25-100 mg Tablet Discontinued 2 TAB PO BID@06,1000 February 18, 2022 12:00am January 06, 2024 4:08pmStart: 02-13-2022 End: 54-62-5824iauwgcxyf-levodopa (SINEMET) 25-100 mg per tablet Indications: Parkinson's disease ([facility]) TAKE 2TABLETS BY MOUTH AT 6AM AND 10AM, 1 TAB AT 2PM AND 6PM. AVOID PROTEIN 1 HOUR BEFORE OR AFTER EACH DOSE. TAKE ALONG WITH SINEMET CR. 180 tablet 11 11/23/2024 ActiveStart: 00-34-0695dofpayujq-levodopa (SINEMET CR) 25-100 MG per extended release tablet 1 tabletStart: 05-50-8243qkzg 1.5 tablets by mouth four times dailycarbidopa-levodopa (SINEMET) 25-100 mg per tablet Indications: PD (Parkinson's disease) ([facility]) Take 1.5 tablets by mouth four times daily. 540 tablet 1 07/28/2019 ActiveStart: 02-17-2019 End: 35-65-7660Iqabernwr-Levodopa 25-100 MG 2 tabs @ 6am, 2 tabs @ 10am, 1 tab @ 2 pm, 1 tab @6pm Oral as directeddo not eat an hour prior or after taking Activecarbidopa 10 mg-levodopa 100 mg tablet unsure of doseComment on above:Take 1.5 tablets by mouth four times daily.Take 2 tablets by mouth at 6 am, 2 tablets at 10 am, and 1 tablet at 2 pm, 6 pm, 10 pm and 2 am.cephalexin 500 mg oral capsule (2 sources)Cephalosporin Antibacterialtake 1 capsule by mouth every eight hours Cephalexin 500 MG 1 capsule Orally Three times a day Activecompression stockings (20 sources)Start: 77-53-9063lqxccgpgxdq stockings 20-30 mmhg knee high wear daily Jul, ActiveStart: 40-59-9064rgzmnvwzchp stockings 20-30 mmhg knee high wear daily for 90 days Jul, ActiveCpap (Continuous Positive Airway Pressure) (4 sources)Start: 75-55-0196Cmpe (Continuous Positive Airway Pressure) Active 0 .Route January 06, 2024 12:00am As directedCpap (Continuous Positive Airway Pressure) unit (5 sources)Start: 32-88-4943Ujjs (Continuous Positive Airway Pressure) unit Active 0 .Route January 06, 2024 12:00am As directedStart: 74-20-7625Vyzl (Continuous Positive Airway Pressure) unit Active 0 .Route January 05, 2024 11:00pm As directedCPAP Machine (20 sources)CPAP Machine Activediclofenac sodium 0.01 mg/mg topical gel (20 sources)Nonsteroidal Anti-inflammatory DrugStart: 67-59-4978Djzty: 02-17-2019 End: 35-34-6883slry 1 tablet by mouth in the morning, then take 1 tablet by mouth at bedtimediclofenac (VOLTAREN) 75 mg EC tablet Take 1 tablet (75 mg total) by mouth in the morning and 1 tablet (75 mg total) before bedtime. 01/06/2024 Activediclofenac sodium oralComment on above:diclofenac sodium 75 mg tablet,delayed release Take 1 tablet twice a day by oral route for 90 days.dicyclomine hydrochloride 10 mg oral capsule (2 sources)AnticholinergicStart: 15-05-4233zuetqjiu sodium 100 mg oral capsule (20 sources)Start: 06-27-2021 End: 90-99-8657cxjc 1 capsule by mouth once daily as neededdocusate sodium (COLACE) 100 mg capsule Take 1 capsule (100 mg total) by mouth daily as needed. 06/27/2021 ActiveStart: 05-04-2020 End: 22-42-4636Krxilitg Sodium Discontinued 100 MG PO As Directed August 29, 2021 1:00am March 07, 2022 9:03amComment on above:Take 1 capsule by mouth twice daily.doxycycline hyclate 100 mg oral capsule (2 sources)Tetracycline-class DrugStart: 05-25-2023 End: 78-01-4011qywv 1 capsule by mouth twice dailydoxycycline hyclate 100 mg Cap 100 mg = 1 cap(s), Oral, BID, X 10 day(s), # 20 cap(s), Refills(s) 0, Pharmacy: [facility], 175, cm, 03/20/23 9:07:00 EDT, Height/Length Dosing, 92, kg, 03/20/23 9:07:00 EDT, Weight Dosing Start Date: 05/25/23 Stop Date: 06/04/23 Status: OrderedDULoxetine 60 mg delayed release oral capsule (20 sources)Serotonin and Norepinephrine Reuptake InhibitorStart: 04-28-2016 End: 95-90-8588nwww 1 capsule by mouth once dailyDULoxetine (CYMBALTA) 60 mg capsule Take 1 capsule (60 mg total) by mouth nightly. 01/06/2024 Activetake 1 capsule by mouth twice dailyCymbalta 20 mg capsule,delayed release take 1 capsule (20 mg) by oral route 2 times per day unsure of doseComment on above: Take 1 capsule by mouth once daily.ezetimibe 10 mg oral tablet (20 sources)Dietary Cholesterol Absorption InhibitorStart: 09-17-2017 End: 95-52-7160jhhh 1 tablet by mouth once dailyezetimibe (ZETIA) 10 mg tablet Take 1 tablet (10 mg total) by mouth daily. 30 tablet 02/19/2021 ActiveComment on above:Take 10 mg by mouth once daily.fludrocortisone acetate 0.1 mg oral tablet (20 sources)Start: 03-23-2023 End: 21-40-1108Abvwb: 02-23-2023 End: 72-44-6382hjhdyrvzsgslvhd (FLORINEF) 0.1 mg tablet Indications: 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 ([facility]) 2 tabs daily as directed 180 tablet 3 07/15/2024 ActiveStart: 12-06-2022 End: 21-35-3898mcwk 1 tablet by mouth once dailyComment on above:Take 1 tablet by mouth once daily.fluticasone propionate 0.05 mg/actuat metered dose nasal spray (18 sources)CorticosteroidStart: 72-76-4025Qdifw: 65-87-5476Dyflx: 09-02-2023 take 1 spray(s) nasal route once dailyFluticasone Propionate 50 MCG/ACT 1 spray in each nostril Nasally Once a day for 30 days Aug, ActiveStart: 30-36-6146rxfu 1 spray(s) nasal route once dailyFluticasone Propionate 50 MCG/ACT 1 spray in each nostril Nasally Once a day for 30 days Aug, Activeglucagon (rdna) 1 mg injection (1 source)Antihypoglycemic AgentStart: 68-20-6651yfyevwzp (rDNA) injection 1 mg 1000 ml glucose 100 mg/ml injection (3 sources)Start: 59-70-7996dcvjjolv bolus (hypoglycemia) 10% 125 mLStart: 90-01-6705iihrxue chewable tablet 16 gStart: 12-45-1962oqxtqsnx 5 % solution insulin lispro 100 unt/ml injectable solution (2 sources)Insulin AnalogStart: 68-40-2293wqutzqg lispro (HUMALOG) injection vial 0-3 Unitslidocaine 0.04 mg/mg medicated patch (20 sources)Antiarrhythmic, Amide Local AnestheticStart: 19-74-5126Giegz: 04-19-2023 End: 79-26-8827Ojhfz: 03-07-2022 End: 84-78-6149Ikyfx: 02-18-2022 End: 56-81-2688uhnaccyyy citrate 58.2 mg/ml oral solution (1 source)Start: 03-14-2025 End: 94-21-3581euuj 148 mL by mouth oncemagnesium citrate (CITROMA) solution Indications: Constipation, unspecified constipation type Take 148 mL by mouth once for 1 dose. 148 mL 03/14/2025 03/14/2025 Activemethenamine hippurate 1000 mg oral tablet (3 sources)Start: 28-72-9115bzqnpfbxa hydrochloride 5 mg oral tablet (20 sources)alpha-Adrenergic AgonistStart: 60-17-0736dlebmnnvf (PROAMATINE) 5 mg tablet Indications: Orthostasis Check blood pressure at 8 am, 12 pm and6 pm. If top number is 110 or lower take 3 tablets (15 mg). If top number 111-149 take 2 tablets (10 mg) if top number is 150 or higher DO NOT TAKE. 810 tablet 3 03/24/2025 ActiveStart: 01-06-2024 End: 25-05-6576Wxcekxqam Active 5 MG PO Four times daily February 10, 2024 1:14pm FreeTextSi mg q am, 10 mg afternoon, 10mg evening Orally tid;Start: 09-02-2023 End: 16-85-2832Vvzkjspcd 5 mg tablet Discontinued 5 MG PO As Directed April 05, 2025 1:51pm July 17, 2025 11:06am FreeTextSi mg q am, 10 mg afternoon, 15 mg evening OrallyStart: 03-23-2023 End: 20-65-2685Gdsjayrxn Discontinued 10 MG PO March 23, 2023 2:15pm January 06, 2024 4:09pmStart: 03-23-2023 End: 96-33-4851nuww 1 dose by mouth once daily at bedtimeMidodrine Discontinued 15 MG PO March 23, 2023 12:00am January 06, 2024 4:09pm do not give last dose of day after 6PM or within 4 hrs of bedtimeStart: 01-16-2023 End: 39-88-6905yclk 1 tablet by mouth once daily at bedtimeMidodrine 5 mg Tablet Discontinued 15 MG PO March 23, 2023 12:00am January 06, 2024 4:09pm do not give last dose of day after 6PM or within 4 hrs of bedtimeStart: 97-38-1494cqfg 1 tablet by mouth once dailymidodrine (PROAMATINE) 10 mg tablet Take 1 tablet by mouth once daily. Take daily at 2:00pm 7 tablet 0 12/06/2022 ActiveStart: 99-97-5684kzpa 3 tablets by mouth once dailymidodrine (PROAMITINE) 5 mg tablet Take 3 tablets by mouth once daily. Take at 7:00am 21 tablet 0 12/06/2022 Active Start: 03-07-2022 End: 35-56-5777qxvj 1 tablet by mouth three times dailyMidodrine 5 mg Tablet Discontinued 5 MG PO TID@0600,1200,1700 90 30 March 07, 2022 12:00am March 23, 2023 2:16pmStart: 95-56-1878nzgdvsihi (PROAMATINE) tablet 15 mgStart: 02-09-2022 End: 26-11-8102wvxwappax (PROAMATINE) tablet 10 mgStart: 02-09-2022 End: 84-75-1728tnleutzlb (PROAMATINE) tablet 7.5 mgStart: 02-08-2022 End: 59-92-6620khpsnwemv (PROAMATINE) tablet 5 mgStart: 02-07-2022 End: mg, Oral, 2 TIMES DAILY, First dose on Thu02/07/22 at 2100, Until Discontinued Do not give after 1800 or within 4 hrs of bedtime.Start: 08-29-2021 End: 32-52-4964Kddic: 08-16-2021 End: 96-91-7142hbxz 1 tablet by mouth twice dailyMidodrine 5 mg Tablet Discontinued 5 MG PO Twice daily August 29, 2021 1:00am March 07, 2022 9:0 3amMidodrine HCl 5 MG 15 mg q am, 10 mg afternoon, 10mg evening Orally tid 15 mg Activetake 15 mg by mouth three times dailyMidodrine HCl 5 MG 15 mg Orally tid 15 mg Activetake 3 tablets by mouth every twelve hoursMidodrine HCl 5 MG 3 tablet Orally BID 15 mg Activemidodrine 2.5 mg tablet unsure of doseComment on above:Take 5 mg by mouth twice daily.Take 3 tablets by mouth once daily. Take at 7:00amTake 1 tablet by mouth once daily. Take daily at 2:00pmTake 1 tablet by mouth once daily. Take daily at 8:00pmMinerin Creme - (16 sources)Minerin Creme - as directed Externally ActiveMiscellaneous Medical Supply (4 sources)Start: 16-01-5629Gbihvpcshbgfv Medical Supply Active 0 .Route January 06, 2024 12:00am As directedStart: 13-15-5730Weathggynauwx Medical Supply Active 0 .ROUTE January 06, 2024 12:00am As directedmontelukast 10 mg oral tablet (20 sources)Leukotriene Receptor AntagonistStart: 12-06-2022 End: 03-10-6565hapf 1 tablet by mouth in the morningmontelukast (SINGULAIR) 10 mg tablet Take 1 tablet (10 mg total) by mouth in the morning. 12/06/2022 Active Comment on above:Take 1 tablet by mouth once daily.1 ml morphine sulfate 2 mg/ml cartridge (1 source)Opioid AgonistStart: 63-32-2613fnbmbszf (PF) injection 2 mg multivitamin capsule (20 sources)take 1 capsule by mouth in the morningmultivitamin capsule Take 1 capsule by mouth in the morning. Activetake 1 capsule by mouth in the morning multivitamin capsule Take 1 capsule by mouth in the morning. 0 Active nitrofurantoin, macrocrystals 25 mg / nitrofurantoin, monohydrate 75 mg oral capsule (10 sources)Nitrofuran AntibacterialStart: 80-58-1583mnal 1 capsule by mouth twice dailyMacrobid 100 mg Cap 100 mg = 1 cap(s), Oral, BID, # 5 cap(s), Refills(s) 0, Pharmacy: [facility], 175, cm, 03/20/23 9:07:00 EDT, Height/Length Dosing, 92, kg, 03/20/23 9:07:00 EDT, Weight Dosing Start Date: 07/22/23 Status: OrderedStart: 06-11-2023 End: 93-68-8917wlie 1 capsule by mouth twice dailyMacrobid 100 mg Cap 100 mg = 1 cap(s), Oral, BID, X 10 day(s), # 20 cap(s), Refills(s) 0, Pharmacy:[facility], 175, cm, 03/20/23 9:07:00 EDT, Height/Length Dosing, 92, kg, 03/20/23 9:07:00EDT, Weight Dosing Start Date: 06/11/23 Stop Date: 06/21/23 Status: Orderedondansetron 4 mg disintegrating oral tablet (20 sources)Serotonin-3 Receptor AntagonistStart: 38-12-0866Uxlkh: 01-13-2025 End: 57-73-4898Qbdns: 01-13-2025 End: 85-24-1859hkry 1 tablet by mouth once dailyOndansetron 4 mg tablet,disintegrating Discontinued 4 MG PO Daily January 13, 2025 12:00am 2024 2:10pmStart: 03-23-2023 End: 27-81-3974Ratcx: 01-16-2023 End: 87-94-6547Xgebf: 10-40-8448txuy 1 tablet by mouth every eight hours as neededondansetron (ZOFRAN) 4 mg tablet Take 1 tablet by mouth every 8 hours as needed for nausea/vomiting. 21 tablet 0 12/06/2022 ActiveStart: 02-17-2019 End: 18-91-3719yzmu 1 tablet by mouth three times daily as needed for nausea Ondansetron Hcl (Zofran) 4 mg Tablet Discontinued 4 MG PO Three times daily as needed for Nausea February 17, 2019 12:00am March 07, 2022 9:03amStart: 04-08-2018 End: 09-71-2584hvkn 2 tablets by mouth every six hours as needed for nausea and vomitingondansetron (ZOFRAN) 4 mg tablet Take 2 tablets (8 mg total) by mouth every 6 (six) hours as neededfor nausea or vomiting. 20 tablet 02/19/2021 Active Start: 12-29-2017 End: 24-69-0890oqjkmisllvb 4 mg disintegrating tablet unsure of doseComment on above:Take 1 tablet by mouth every 8 hours as needed.Take 1 tablet by mouth every 8 hours as needed for nausea/vomiting.ondansetron (ZOFRAN-ODT) disintegrating tablet 4 mg (1 source)Start: 14-94-6094asnwphmyeli (ZOFRAN-ODT) disintegrating tablet 4 mg oxyCODONE hydrochloride 5 mg oral tablet (14 sources)Opioid AgonistStart: 92-99-6879Vcysb: 04-19-2023 End: 92-54-7460Ptsol: 04-19-2023 End: 11-44-5145phlc 1 tablet by mouth every four hours as needed for pain Oxycodone 5 mg Tablet Discontinued 5 MG PO Every 4 hours as needed for Pain (Scale Score 7-10) 42 7July 2022January 06, 2024 4:09pmpantoprazole 40 mg delayed release oral tablet (20 sources)Proton Pump InhibitorStart: 93-06-3625Ppowp: 04-19-2023 End: 11-22-8155Cicdr: 08-29-2021 End: 99-78-1879Lexmaphr 40 mg granules delayed-release packet take 1 packet (40 mg) mixed in 1 teaspoonful of applesauce or apple juice by oral route once daily unsure of dosepolyethylene glycol 3350 86753 mg powder for oral solution (20 sources)Osmotic LaxativeStart: 28-40-5042Ftrvz: 04-19-2023 End: 24-89-8862Akcir: 02-07-2022 End: 87-21-7536Infunplsrwlj Glycol 3350 (Healthylax) 17 gram Powder In Packet Discontinued 17 GM PO Daily as needed for Constipation 0 April 19, 2023 12:00am January 06, 2024 4:10pmComment on above:Take 1 Packet by mouth once daily. Dissolve dose in 4 - 8 ounces of liquid and take as directed.Polyethylene Glycol 3350 17 GM/SCOOP (3 sources)Polyethylene Glycol 3350 17 GM/SCOOP as directed Orally Active potassium citrate 15 meq extended release oral tablet (20 sources)Start: 01-06-2024 End: 79-28-8246Fggok: 21-74-9635mrac 1 tablet by mouth every twelve hours Potassium Citrate ER 15 MEQ (1620 MG) 1 tablet with meals Orally Twice a day for 90 days Sep, ActiveStart: 02-17-2019 End: 00-04-9433Ahagr: 15-31-5401vjor 1 tablet by mouth three times daily at mealtimePotassium Citrate 15 MEQ (1620 MG) 1 tablet with meals Orally Three times a day February, ActiveStart: 23-84-4012casl 1 tablet by mouth three times daily at mealtimePotassium Citrate 15 MEQ (1620 MG) 1 tablet with meals Orally Three times a day February, Not-TakingStart: 06-23-2007 End: 45-02-5866wlud 1 tablet by mouth three times dailypotassium citrate (UROCIT-K 10) 10 mEq ORAL TbSR Take one(1) tablet three times daily. 0 06/23/200702/11/2022 Discontinuedtake 1 tablet by mouth three times daily Potassium Citrate ER 15 MEQ (1620 MG) Oral Tablet Extended Release TAKE 1 TABLET 3 times daily Quantity: 0 Refills: 0 Ordered: 16-Aug-2021 DO ActiveComment on above:Take one(1) tablet three times daily.pregabalin 300 mg oral capsule (20 sources)Start: 14-55-4940Grsaig 600 mg 11/19/2021 Take 1 twice dailyStart: 02-17-2019 End: 86-61-1901jeos 1 capsule by mouth in the morning, then take 1 capsule by mouth at bedtimepregabalin (LYRICA) 300 mg capsule Take 1 capsule (300 mg total) by mouth in the morning and 1 capsule (300 mg total) before bedtime. 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 May repeat in 2 hours if unresolved. Do not exceed 200 mg in 24 hours. 15 tablet 11 09/30/2024 ActiveStart: 06-21-2024 End: 99-35-8127Oajor: 81-66-4955Yomeplhnbrp Succinate Active MG PO June 21, 2024 12:00amStart: 02-15-2024 End: 98-70-8991awsd 1 tablet by mouth once as neededSUMAtriptan (IMITREX) 50 mg tablet Indications: Migraine without aura and without status migrainosus, not intractable Take 1 tablet (50 mg total) by mouth once as needed for migraine for up to 15 doses. May repeat in 2 hours if unresolved. Do not exceed 200 mg in 24 hours. 15 tablet 05/25/2024 09/25/2024 Discontinued (Reorder)Start: 09-03-2023 End: 80-50-7456vqra 1 tablet by mouth once as neededSUMAtriptan (IMITREX) 50 mg tablet Indications: Migraine without aura and without status migrainosus, not intractable Take 1 tablet (50 mg total) by mouth once as needed for migraine for up to 15 doses. May repeat in 2 hours if unresolved. Do not exceed 200 mg in 24 hours. 15 tablet 09/03/2023 02/09/2024 Discontinued (Reorder)Start: 02-18-2022 End: 94-75-3001Nwlds: 54-45-9054dsxb 1 dose by mouth once50 mg, Oral, ONCE PRN, 1 dose, Starting on Thu02/07/22 at 1617, Until Thu02/07/22 at 2121, Migraine Syringe (Disposable) (4 sources)Start: 08-58-8165Isifrrw (Disposable) Active 0 .Route January 06, 2024 12:00am As directedStart: 42-66-7756Lzhizma (Disposable) Active 0 .ROUTE January 06, 2024 12:00am As btiwovcg67 hr tolterodine tartrate 4 mg extended release oral capsule (20 sources)Cholinergic Muscarinic AntagonistStart: 08-29-2021 End: 27-03-0190gurp 1 capsule by mouth every twenty-four hours in the morning tolterodine LA (DETROL LA) 4 mg 24 hr capsule Take 1 capsule (4 mg total) by mouth in the morning. ActiveDetrol LA 2 mg capsule,extended release unsure of doseComment on above:Take 4 mg by mouth once daily.topiramate 100 mg oral tablet (20 sources)Start: 79-91-8128liwp 1 capsule by mouth once dailytopiramate oral capsule,sprinkle,ER 24hr 100 mg 11/19/2021 take 1 capsule (100 mg) by oral route oncedailyStart: 02-17-2019 End: 37-76-9464Jauyg: 02-07-2019 End: 77-90-8219Cmqzy: 07-07-2018 End: 53-10-0754rwsn 1 tablet by mouth twice dailytopiramate (TOPAMAX) 100 mg tablet Take 1 tablet (100 mg total) by mouth 2 (two) times a day. 60 tablet 1 02/19/2021 ActiveComment on above:Take 1 tablet by mouth twice daily.traMADol hydrochloride 50 mg oral tablet (20 sources)Opioid AgonistStart: 04-05-2025 End: 64-27-3437shhi 1 tablet by mouth every six hours as needed for paintraMADoL (ULTRAM) 50 mg tablet Indications: Spinal stenosis of lumbar region with neurogenic claudication Take 1 tablet (50 mg total) by mouth every 6 (six) hours as needed for pain. 120 tablet 5 04/06/2025 ActiveStart: 09-30-2024 End: 45-13-1700qqzs 1 tablet by mouth every six hours as needed for paintraMADoL (ULTRAM) 50 mg tablet Indications: Spinal stenosis of lumbar region with neurogenic claudication Take 1 tablet (50 mg total) by mouth every 6 (six) hours as needed for pain. 120 tablet 5 09/30/2024 04/04/2025 Discontinued (Reorder) Start: 01-06-2024 End: 26-11-0974eumq 1 tablet by mouth twice daily as needed for painTramadol 50 mg tablet Discontinued 50 MG PO Twice daily as needed for pain 60 30 February 10, 2024 1:40pm April 05, 2025 2:25pmStart: 11-16-2023 End: 05-57-6701mmpq 1 tablet by mouth every six hours as needed for paintraMADoL (ULTRAM) 50 mg tablet Indications: Spinal stenosis of lumbar region with neurogenic claudication Take 1 tablet (50 mg total) by mouth every 6 (six) hours as needed for pain. 120 tablet 5 08/03/2024 09/25/2024 Discontinued (Reorder) Start: 65-07-7161slpp 1 tablet by mouth every twelve hourstraMADol HCl 50 MG 1 tablet as needed Orally twice a day for 30 days Aug, ActiveStart: 11-39-1411gytf 1 tablet by mouth every twelve hourstraMADol HCl 50 MG 1 tablet as needed Orally twice a day for 30 days May, ActiveStart: 02-08-2022 traMADol (ULTRAM) tablet 50 mgStart: 02-17-2019 End: 30-97-9516pwbkgdelxfxy 10 mg/ml ophthalmic solution (6 sources)Nucleoside Analog Antiviral, Nucleoside Metabolic InhibitorStart: 45-73-9071Hvntu: 70-15-8786Takaywqdouro 1 % drops Active 1 DROPS EYE-LEFT Every 2 hours 7.5 October 03, 2024 1:00am administer 9 doses per day while awake24 hr venlafaxine 75 mg extended release oral capsule (20 sources)Serotonin and Norepinephrine Reuptake InhibitorStart: 06-21-2024 End: 97-57-4621Wralq: 11-16-2023 End: 33-87-4560oslv 1 capsule by mouth every twenty-four hoursVenlafaxine 150 mg capsule,extended release 24hr Discontinued 150 MG PO June 21, 2024 12:00amNove2023 12:24pmStart: 03-23-2023 End: 42-30-3917Pckqy: 03-23-2023 End: 13-63-7758nyyo 1 capsule by mouth once dailyStart: 03-23-2023 End: 59-96-5414Qfmfe: 34-30-1641jizidoghanb 37.5 mg Cap-ER Refills(s) 0 Start Date: 01/16/23 Status: Ordered Repeat number: 1Start: 01-09-2023 End: 04-35-7316gkgb 1 capsule by mouth every twenty-four hours in the morning venlafaxine XR (EFFEXOR XR) 75 mg 24 hr capsule Indications: Current moderate episode of major depressive disorder without prior episode (CMS-HCC) Take 1 capsule (75 mg total) by mouth in the morning. 90 capsule 3 01/09/2023 11/16/2023 Discontinued (Dose adjustment)take 1 tablet by mouth once daily at breakfastvenlafaxine 150 MG tablet extended release 24hr 24 hr tablet Take 1 tablet (150 mg total) by mouth daily with breakfast. Activevitamin b6 100 mg oral tablet (2 sources)Start: 99-12-3556qhuh oxide 0.2 mg/mg topical ointment (20 sources)Start: 01-06-2024 End: 72-74-4594Isow Oxide 20 % ointment Discontinued 1 APPLIC TOPICAL As Directed January 06, 2024 12:00am July 17, 2025 11:06amStart: 04-19-2023 End: 98-07-8742Sekhq: 04-19-2023 End: 37-73-5993Uxbw Oxide 20 % Ointment Discontinued 1 APPLIC TOPICAL Three times daily 11 17April 19, 2023 12:00am January 06, 2024 4:10pmzinc oxide 20 % ointment Apply 1 Application topically as needed. ActiveZinc Oxide 20 % as directed Externally ActiveZinc Oxide 20 % as directed Externally Active (13 sources)Start: 79-51-3683Cahlf: 01-30-2025 End: 72-73-9616Rvthu: 01-30-2025 End: 40-48-6874Johnq: 64-69-9764Jhryc: 01-06-2024 End: 28-83-1600Wlmij: 01-06-2024 End: 35-58-8683Oiqqj: 01-06-2024 End: 34-59-5431Uhwzx: 01-06-2024 End: 66-12-1914Hudla: 04-19-2023 End: 91-85-4129Apcuu: 03-07-2022 End: 91-83-7572Azywr: 02-18-2022 End: 84-42-7284Iukdz: 02-17-2019 End: 72-13-6926Dsczb: 02-17-2019 End: 08-29-2021 Completed/Discontinued Medications MedicationDrug Class(es)DatesSig (Normalized)Sig (Original)acarbose 25 mg oral tablet (20 sources)alpha-Glucosidase InhibitorStart: 61-43-4712duta 25 mg by mouth three times daily at tljajezr56 mg, Oral, 3 TIMES DAILY WITH MEALS, First dose on Thu02/07/22 at 1700, Until DiscontinuedStart: 01-13-2019 End: 34-09-1354ekjp 1 tablet by mouth three times dailyacarbose (PRECOSE) 25 mg tablet Take 1 tablet (25 mg total) by mouth 3 (three) times a day. 90 tablet 1 02/19/2021 ActiveStart: 12-29-2007 End: 76-43-1866nrzqbxuw(PRECOSE 25 MG TAB) Indications: Hypoglycemia, unspecified , Obesity, unspecified Take one(1) tablet three(3) times daily. 1 month supply 3 12/29/2007 12/06/2022 DiscontinuedComment on above:Take one(1) tablet three(3) times daily.acetaminophen 500 mg / caffeine 65 mg oral tablet (20 sources)Central Nervous System Stimulant, MethylxanthineStart: 02-19-2021 End: 34-45-0324bmpt 2 tablets by mouth every six hours as neededacetaminophen- caffeine (EXCEDRIN TENSION HEADACHE) 500-65 mg tablet Take 2 tablets by mouth every 6(six) hours as needed (Migraine). 90 tablet 02/19/2021 07/26/2025 Discontinuedacetaminophen 325 mg / oxyCODONE hydrochloride 5 mg oral tablet (12 sources)Opioid AgonistStart: 03-07-2022 End: 66-73-0664Xyohg: 03-07-2022 End: 86-27-5118oijg 1 tablet by mouth every six hours as needed for pain Oxycodone-Acetaminophen 5-325 mg Tablet Discontinued 1 TAB PO Q6H as needed for Severe Pain 07 03March 07, 2022 March 23, 2023 1:58pmStart: 02-13-2022 End: 07-78-4690qnpr 1 tablet by mouth every six hours as needed for pain oxyCODONE-acetaminophen (PERCOCET) 5-325 MG per tablet Indications: Lumbar stenosis with neurogenicclaudication Take 1 tablet by mouth every 6 hours as needed for Pain for up to 7 days. 28 tablet 0 02/13/2022 02/20/2022 ActiveStart: 81-82-9698ogiRLZVDV-acetaminophen (PERCOCET) 5-325 MG per tablet 1 tablet albuterol 0.833 mg/ml / ipratropium bromide 0.167 mg/ml inhalation solution (2 sources)Anticholinergic, beta2-Adrenergic AgonistStart: 85-69-6007kvqz 3 mL by inhalation every four hours as neededipratropium-albuterol (DUONEB) 0.5 mg-3 mg(2.5 mg base)/3 mL nebu Inhale 3 mL as instructed every 4hours as needed for wheezing/shortness of breath. 10 Each 0 12/06/2022 ActiveComment on above:Inhale 3 mL as instructed every 4 hours as needed for wheezing/shortness of breath. amitriptyline hydrochloride 100 mg oral tablet (13 sources)Tricyclic AntidepressantStart: 02-17-2019 End: 40-80-1878Kajsy: 10-22-2011 End: 01-27-4733vnjc 2 tablets by mouth once daily at bedtimeamitriptyline 25 mg ORAL tablet Take 50 mg by mouth daily at bedtime. TAKES 2 50 MG AT HS 0 10/22/19 12 11/20/2022 DiscontinuedComment on above:Take 50 mg by mouth daily at bedtime. TAKES 2 50 MG AT HS aspirin 81 mg delayed release oral tablet (3 sources)Platelet Aggregation Inhibitor, Nonsteroidal Anti-inflammatory Drug Start: 05-04-2020 End: 53-53-4019wkgu 1 tablet by mouth twice dailyaspirin, enteric coated (ASPIRIN, ENTERIC COATED) 81 mg EC tablet Take 1 tablet by mouth twice daily. 84 tablet 0 05/04/2020 11/20/2022 DiscontinuedComment on above:Take 1 tablet by mouth twice daily.azithromycin 250 mg oral tablet (6 sources)Macrolide AntimicrobialStart: 10-18-2024 End: 50-81-2385Aecvdt [place]-Juliette Oil (4 sources)Start: 03-07-2022 End: 55-91-6189Ujdkbf [place]-Juliette Oil Discontinued 1 APPLIC TOPICAL Three times daily 60 March 07, 2022 12:00amMarch 23, 2023 1:58pmBalsam Keesha-Juliette Oil Ointment (5 sources)Start: 03-07-2022 End: 77-26-3082Svkene [place]-Juliette Oil Ointment Discontinued 1 APPLIC TOPICAL Three times daily 60 March 07, 2022 12:00am March 23, 2023 1:58pmStart: 03-07-2022 End: 60-44-4267Cdfrim [place]-Juliette Oil Ointment Discontinued 1 APPLIC TOPICAL Three times daily 60 March 06, 2022 11:00pm March 23, 2023 12:58pmbenzocaine 6 mg / menthol 10 mg oral lozenge (2 sources)Standardized Chemical AllergenStart: 95-38-4780thkldzsosi-menthol (CHLORASEPTIC) 6-10 mg lozenges Use 1 Lozenge as instructed every 2 hours as needed. 18 Each 0 12/06/2022 ActiveComment on above:Use 1 Lozenge as instructed every 2 hours as needed.benzonatate 100 mg oral capsule (20 sources)Non-narcotic AntitussiveStart: 12-06-2022 End: 57-32-9015Adafrdd on above:Take 1 capsule by mouth three times daily as needed for cough.betamethasone 0.5 mg/ml / clotrimazole 10 mg/ml topical cream (3 sources)Azole Antifungal, Corticosteroid End: 12-43-8000xvpzorkejkcc-betamethasone (LOTRISONE) cream Apply to affected area twice daily. 0 11/20/2022 DiscontinuedComment on above:Apply to affected area twice daily.bisacodyl 5 mg delayed release oral tablet (2 sources)Stimulant LaxativeStart: 90-77-0852fxbd 5 mg by mouth once daily5 mg, Oral, DAILY, First dose on Thu02/07/22 at 1645, Until Discontinued Do not crush or break. Post-opStart: 43-43-1257plzv 10 mg rectal route once daily as needed 10 mg, Rectal, DAILY PRN, Starting on Thu02/07/22 at 1617, Until Discontinued, Constipation First line therapy for constipation Post-op120 actuat budesonide 0.16 mg/actuat / formoterol fumarate 0.0045 mg/actuat metered dose inhaler (20 sources)Corticosteroid, beta2-Adrenergic AgonistStart: 03-07-2022 End: 43-38-8749Rnhuw: 03-07-2022 End: 67-49-8864givq 1 puff(s) by inhalation twice dailyBudesonide-Formoterol (Symbicort) 160-4.5 mcg/actuation Hfa Aerosol Inhaler Discontinued 2 PUFF INHA LATION Twice daily 11 17March 07, 2022 9:01am March 23, 2023 1:58pmStart: 02-17-2019 End: 25-54-7470Evmhj: 02-17-2019 End: 66-30-5641cznw 1 puff(s) by inhalation twice dailyBudesonide-Formoterol (Symbicort) 160-4.5 mcg/actuation Hfa Aerosol Inhaler Discontinued 2 PUFF INHA LATION Twice daily February 16, 2019 11:00pm March 07, 2022 8:02amStart: 02-17-2019 End: 70-89-0043ucpc 1 puff(s) by inhalation twice dailyBudesonide-Formoterol (Symbicort) 160-4.5 mcg/actuation Hfa Aerosol Inhaler Discontinued 2 PUFF INHA LATION Twice daily February 17, 2019 12:00am March 07, 2022 9:02amStart: 04-28-2016 End: 91-66-5534ifyp 2 puff(s) by inhalation twice dailybudesonide-formoterol (SYMBICORT) 160-4.5 mcg/actuation inhaler Inhale 2 Puffs as instructed twice d aily. 0 04/28/2016 11/20/2022 DiscontinuedStart: 80-46-5640auel 2 puff(s) by inhalation twice dailybudesonide-formoterol (SYMBICORT) 160-4.5 mcg/actuation inhaler Inhale 2 Puffs as instructed twice daily. 0 04/28/2016 Activetake 2 puff(s) by inhalation twice dailySymbicort 160-4.5 MCG/ACT 2 puffs Inhalation Twice a day Not-Takingtake 2 puff(s) by mouth twice dailySymbicort 160-4.5 MCG/ACT Inhalation Aerosol INHALE 2 PUFFS TWICE DAILY. RINSE MOUTH AFTER USE. Quantity: 0 Refills: 0 Ordered: 16-Aug-2021 DO ActiveComment on above:Inhale 2 Puffs as instructed twice daily.ceFAZolin (ANCEF) 2000 mg in sterile water 20 mL IV syringe (1 source)Start: 02-07-2022 End: ,000 mg, IntraVENous, EVERY 8 HOURS, 2 doses, First dose on Thu02/07/22 at 1845, Last dose on 02/08/22 at 0245 Antimicrobial Indications: Surgical Prophylaxis Administer over 5 mins. Post-opcefdinir 300 mg oral capsule (13 sources)Cephalosporin AntibacterialStart: 05-23-2025 End: 67-88-0112Heldl: 02-23-2024 End: 35-58-4973rwsn 1 capsule by mouth every twelve hourscefdinir 300 mg Cap 300 mg = 1 cap(s), Oral, q12hr, X 10 day(s), # 20 cap(s), Refills(s) 0, Pharmacy: [facility], 175, cm, 03/20/23 9:07:00 EDT, Height/Length Dosing, 92, kg, 03/20/23 9:07:00 EDT, Weight Dosing Start Date: 02/23/24 Stop Date: 03/04/24 Status: OrderedStart: 06-11-2023 End: 72-51-3542drxl 1 capsule by mouth every twelve hourscefdinir 300 mg Cap 300 mg = 1 cap(s), Oral, q12hr, X 10 day(s), # 20 cap(s), Refills(s) 0, Pharmacy: [facility], 175, cm, 03/20/23 9:07:00 EDT, Height/Length Dosing, 92, kg, 03/20/23 9:07:00 EDT, Weight Dosing Start Date: 06/11/23 Stop Date: 06/21/23 Status: Orderedtake 1 capsule by mouth every twelve hoursCefdinir 300 MG 1 capsule Orally bid Activecosyntropin (CORTROSYN) injection 250 mcg (1 source)Start: 02-09-2022 End: 26-69-8375etkojtufgmw (CORTROSYN) injection 250 mcgcyclobenzaprine hydrochloride 5 mg oral tablet (12 sources)Muscle RelaxantStart: 03-07-2022 End: 82-97-4926Uubef: 02-07-2022 End: 41-86-1514drtv 1 tablet by mouth three times daily as needed for muscle spasmscyclobenzaprine (FLEXERIL) 10 MG tablet Take 1 tablet by mouth 3 times daily as needed for Muscle spasms 30 tablet 0 02/13/2022 02/23/2022 Active docusate sodium 50 mg / sennosides, senior care 8.6 mg oral tablet (1 source)Start: 59-71-9928fcxv 1 tablet by mouth twice daily1 tablet, Oral, 2 TIMES DAILY, First dose on Thu02/07/22 at 2100, Until Discontinued, Post-op500 ml DOPamine hydrochloride 1.6 mg/ml injection (1 source)CatecholamineStart: 02-08-2022 End: 20-26-7517CMRfzluz (INTROPIN) 400 mg in dextrose 5 % 250 mL infusion2 ml fentaNYL 0.05 mg/ml injection (2 sources)Opioid AgonistStart: 02-07-2022 End: 40-80-4054gyxtuUZD (SUBLIMAZE) injection 50 mcgStart: 02-07-2022 End: 74-15-1146ogoaaXHC (SUBLIMAZE) 100 MCG/2ML rbpiuymqf53 actuat formoterol fumarate 0.005 mg/actuat / mometasone furoate 0.2 mg/actuat metered dose inhaler (1 source)Corticosteroid, beta2-Adrenergic AgonistStart: 53-76-9944boij 2 puff(s) by inhalation twice daily2 puff, Inhalation, 2 TIMES DAILY, First dose on Thu02/07/22 at 2000, Until Discontinued Substituted for Budesonide-Formoterol (SYMBICORT).2 ml glycopyrrolate 0.2 mg/ml injection (2 sources)Start: 71-35-6879isbvgn 1 mL by subcutaneous injection every four hours as neededglycopyrrolate (ROBINUL) 0.2 mg/mL injection Inject 1 mL intravenously or subcutaneousl every 4 hours as needed. 5 mL 0 12/06/2022 Active Comment on above:Inject 1 mL intravenously or subcutaneousl every 4 hours as needed.12 hr guaiFENesin 600 mg extended release oral tablet (2 sources)Start: 38-39-2224jsvx 1 tablet by mouth every twelve hours as needed for coughguaiFENesin (MUCINEX) 600 mg 12 hr tablet Take 1 tablet by mouth every 12 hours as needed (cough, congestion). 7 tablet 0 12/06/2022 ActiveComment on above:Take 1 tablet by mouth every 12 hours as needed (cough, congestion). hydrocortisone 100 mg injection (2 sources)CorticosteroidStart: 02-11-2022 End: 85-30-0729dzbxvqrpkrhtzn sodium succinate PF (SOLU-CORTEF) injection 50 mg Start: 02-09-2022 End: 40-02-2603urntblpboinabl sodium succinate PF (SOLU-CORTEF) injection 100 mg HYDROmorphone hydrochloride 2 mg oral tablet (20 sources)Opioid AgonistStart: 03-23-2023 End: 90-38-0428Xnaeq: 01-16-2023 End: 84-18-1786zovwxkjtkewbl Discontinued 2 MG PO January 30, 2025 12:00am January 30, 2025 2:09pmStart: 12-06-2022 End: 53-65-4993zlix 1 tablet by mouth every four hours as neededHYDROmorphone (DILAUDID) 2 mg tablet Indications: Spinal stenosis of lumbar region, unspecified whether neurogenic claudication present Take 1 tablet by mouth every 4 hours as needed for up to 7 days. 42 tablet 0 12/06/2022 12/13/2022 Active Start: 02-07-2022 End: 60-95-4056XQCVEgosythac (DILAUDID) injection 0.5 mgComment on above:Take 1 tablet by mouth every 4 hours as needed for up to 7 days.hydrOXYzine hydrochloride 50 mg oral tablet (13 sources)AntihistamineStart: 02-17-2019 End: 27-03-4322Zczam: 05-26-2017 End: 26-38-5023uhxy 2 tablets by mouth once daily at bedtimeHydroxyzine Hcl 50 mg tablet Discontinued 100 MG PO Daily at bedtime February 17, 2019 12:00am August 29, 2021 10:35amComment on above:Take 100 mg by mouth once daily. Ketorolac (20 sources)Nonsteroidal Anti-inflammatory Drug, Cyclooxygenase InhibitorStart: 71-58-7033Vaaquaf per 15 mg Mar, 2 ccStart: 50-23-9392Eeyoqps per 15 mg Apr, 2 ccStart: 18-60-1086Ecizupk per 15 mg Sep, 2 ccStart: 05-64-2464Jdiqurn per 15 mg Aug, 2 ccStart: 41-81-0183Hoawers per 15 mg Mar, 2 mLStart: 99-88-5427Enljtur per 15 mg Jan, 2.0 ccStart: 85-92-2443Sqbhpsh per 15 mg Dec, 2.0 ccStart: 01-03-2236Mbtynhi per 15 mg Jul, 2.0 ccStart: 72-82-1024Eaqtwfe per 15 mg Dec, 2 ccStart: 35-43-1945Jspulim per 15 mg Oct, 2.0 ccStart: 31-85-5709Vdeltse per 15 mg Oct, 2.0 ccStart: 44-48-1466Jsmnvgv per 15 mg Jun, 2 ccStart: 75-93-9466Fklbuln per 15 mg Jun, 2 ccStart: 68-23-9899Vahpfmc per 15 mg Apr, 2 mLStart: 40-40-4268Zcedqrq per 15 mg Jan, 2mlLanolin Qmxlvaq-Vh-P.Pet-Pow[place] (Minerin Creme) Cream (9 sources)Start: 04-19-2023 End: 21-68-1748Axjuwdx Agbqgom-Ah-T.Pet-[place] (Minerin Creme) Cream Discontinued 1 APPLIC TOPICAL Twice daily 1 30July 2022 11:00pm January 06, 2024 3:09pm Start: 04-19-2023 End: 00-20-8031Oadursq Owzmtvy-Xq-I.Pet-[place] (Minerin Creme) Cream Discontinued 1 APPLIC TOPICAL Twice daily 1 July 2022 12:00am January 06, 2024 4:09pm linaclotide 0.145 mg oral capsule (20 sources)Guanylate Cyclase-C AgonistStart: 02-17-2019 End: 37-87-8844Cerpe: 15-07-5264Tftvecd 145 145mcg one PO daily for 90 days Sep, Not-TakingStart: 29-86-4228Vxreqrw 145 145mcg one PO daily for 90 days Sep, ActiveComment on above:Take 145 mcg by mouth once daily.magnesium hydroxide 80 mg/ml oral suspension (3 sources)Start: 04-27-2017 End: 04-93-9513lcbo 15 mL by mouth once daily as neededmagnesium hydroxide (MILK OF MAGNESIA) 400 mg/5 mL suspension Take 15 mL by mouth once daily as needed. Take if no BM > 48 hrs. 120 mL 0 04/27/2017 11/20/2022 DiscontinuedComment on above:Take 15 mL by mouth once daily as needed. Take if no BM > 48 hrs.melatonin 5 mg oral tablet (10 sources)Start: 04-19-2023 End: 72-22-6110Vjpyw: 04-19-2023 End: 39-36-7359Kaxltbzzp 5 mg Tablet Discontinued 5 MG PO 2300 0 April 19, 2023 12:00am January 06, 2024 4:09pmmetFORMIN hydrochloride 500 mg oral tablet (20 sources)BiguanideStart: 06-21-2024 End: 32-87-1309Ufkho: 03-07-2022 End: 60-51-7450Otums: 02-07-2022 End: 29-33-3298ifca 1 tablet by mouth twice daily at mealtimeMetformin 500 mg Tablet Discontinued 500 MG PO Twice daily with meals 60 March 07, 2022 12:00am March 23, 2023 1:58pmStart: 02-17-2019 End: 70-98-2921joaz 1 tablet by mouth every twelve hours at mealtimemetFORMIN HCl - 500 MG Oral Tablet TAKE 1 TABLET EVERY 12 HOURS WITH FOOD. Quantity: 0 Refills: 0 Ordered: 16-Aug-2021 DO ActiveComment on above:Take 1,000 mg by mouth twice daily with meals.Methylprednisolone (12 sources)CorticosteroidStart: 10-18-2024 End: 76-04-2934Vagux: 10-18-2024 End: 75-27-8138zypz 1 tablet by mouth onceMethylprednisolone (Medrol (Josué)) 4 mg tablets,dose pack Discontinued 0 PO per package directions October 18, 2024 1:00am December 29, 2024 1:41pm PO PER PKG DIRStart: 09-02-2023 methylPREDNISolone 4 MG as directed Orally as directed Aug, Active Mineral Oil-Isopropyl Myristat (Minerin) lotion (9 sources)Start: 01-06-2024 End: 68-80-3521Mfkwrzn Oil-Isopropyl Myristat (Minerin) lotion Discontinued 1 APPLIC TOPICAL 3 to 4 times per day as needed January 06, 2024 12:00am February 11, 2024 8:20amStart: 01-06-2024 End: 10-45-7075Ygnzviy Oil-Isopropyl Myristat (Minerin) lotion Discontinued 1 APPLIC TOPICAL 3 to 4 times per day as needed January 05, 2024 11:00pm February 11, 2024 7:20amStart: 01-06-2024 End: 67-44-5209Mdkxcpz Oil-Isopropyl Myristat (Minerin) lotion Discontinued 1 APPLIC TOPICAL 3 to 4 times per day January 06, 2024 12:00am February 11, 2024 8:20amStart: 15-52-5585Jdeaknd Oil-Isopropyl Myristat (Minerin) lotion Active 1 APPLIC TOPICAL 3 to 4 times per day January 06, 2024 12:00am24 hr mirabegron 50 mg extended release oral tablet (10 sources)beta3-Adrenergic AgonistStart: 02-17-2019 End: 21-29-7377Qumvwdrndernm [employer] misc (5 sources)Start: 01-06-2024 End: 92-25-4053Tkukstpjjseiw Medical Supply misc Discontinued 0 .Route January 06, 2024 12:00am April 05, 2025 1:54pm As directedStart: 01-06-2024 Miscellaneous Medical Supply misc Active 0 .Route January 06, 2024 12:00am As directedStart: 85-02-6242Hfebjqcmaovss Medical Supply misc Active 0 .Route January 05, 2024 11:00pm As directedmiSOPROStol 0.2 mg oral tablet (3 sources)Prostaglandin E1 Analog End: 83-90-8945hsfx 1 tablet by mouth four times dailymiSOPROStol (CYTOTEC) 200 mcg tablet Take 200 mcg by mouth four times daily. Only Takes when neededfor stomach upset 0 11/20/2022 DiscontinuedComment on above:Take 200 mcg by mouth four times daily. Only Takes when needed for stomach upset Multi Vitamin TABS (5 sources)Multi Vitamin TABS TAKE 1 TABLET DAILY. Quantity: 0 Refills: 0 Ordered: 16-Aug-2021 DO ActiveMULTIVIT-MIN/FA/LYCOPEN/LUTEIN (CENTRUM SILVER ULTRA MEN'S ORAL) (3 sources) End: 91-57-6499lpro 1 tablet by mouth once dailyMULTIVIT-MIN/FA/LYCOPEN/LUTEIN (CENTRUM SILVER ULTRA MEN'S ORAL) Take 1 tablet by mouth once daily.0 11/20/2022 Discontinuedtake 1 tablet by mouth once dailyMULTIVIT-MIN/FA/LYCOPEN/LUTEIN (CENTRUM SILVER ULTRA MEN'S ORAL) Take 1 tablet by mouth once daily.0 Active Comment on above:Take 1 tablet by mouth once daily.Multivitamin preparation (4 sources)Start: 02-17-2019 End: 76-73-5470qqmi 1 tablet by mouth once daily in the morningMultivitamin Discontinued 1 TAB PO Every morning February 17, 2019 12:00am March 23, 2023 1:58pm multivitamin tablet (2 sources)take 1 tablet by mouth once dailymultivitamin tablet take 1 tablet by oral route daily unsure of doseMultivitamin Tablet (5 sources)Start: 02-17-2019 End: 09-10-4061cppo 1 tablet by mouth once daily in the morningMultivitamin Tablet Discontinued 1 TAB PO Every morning February 17, 2019 12:00am March 23, 2023 1:58pmStart: 02-17-2019 End: 92-45-5272ytbc 1 tablet by mouth once daily in the morningMultivitamin Tablet Discontinued 1 TAB PO Every morning February 16, 2019 11:00pm March 23, 2023 12:58pmMultivitamins DX: 285.9 (20 sources)Start: 74-66-0679fyle 1 capsule by mouth once dailyMultivitamins DX: 285.9 1 capsule Orally Once a day for 90 days Jul, Not-TakingStart: 27-81-5985yjtk 1 capsule by mouth once dailyMultivitamins DX: 285.9 1 capsule Orally Once a day for 90 days Jul, Activenaloxone hydrochloride 40 mg/ml nasal spray (3 sources)Opioid AntagonistStart: 05-04-2020 End: 65-18-9977opyvsjkm 4 mg/actuation nasal spray (NARCAN) Use 1 spray in one nostril as needed for overdose. Mayrepeat every 2 to 3 min in alternating nostrils until medical assistance is available 1 Box 0 05/04/2020 11/20/2022 DiscontinuedComment on above:Use 1 spray in one nostril as needed for overdose. May repeat every 2 to 3 min in alternating nostrils until medical assistance is availableNeedle (Disp) 26G X 5/8 (17 sources)Start: 42-12-9020Sprafh (Disp) 26G X 5/8 as directed subq as directed February, Not-Taking/PRNStart: 62-55-6921Uwzibq (Disp) 26G X 5/8 as directed subq as directed February, Activenystatin 100 unt/mg topical powder (20 sources)Polyene AntifungalStart: 01-06-2024 End: 12-14-2738Fennnmhl 100,000 unit/gram powder Discontinued 1 APPLIC TOPICAL Twice daily January 06, 2024 12:00am January 22, 2024 9:18am FreeTextSi application Externally Twice a day; Note: Source Status: Taking; Provider: Leyda Hughes ( )Start: 04-19-2023 End: 43-46-7078Mqeey: 04-19-2023 End: 46-76-8283Wgdnlmda (Nystop) 100,000 unit/gram Powder Discontinued 1 APPLIC TOPICAL Three times daily 11 17April 19, 2023 12:00am January 06, 2024 4:09pm Nystatin 600644 UNIT/GM 1 application Externally Twice a day ActiveOmega-3 Fatty Acids (4 sources)Start: 02-18-2022 End: 93-72-6456wvnv 1000 mg by mouth once daily in the morningOmega-3 Fatty Acids Discontinued 1000 MG PO Every morning February 18, 2022 12:00am March 23, 2023 1:58pmOmega-3 Fatty Acids Capsule (5 sources)Start: 02-18-2022 End: 68-49-7598icyy 1 capsule by mouth once daily in the morningOmega-3 Fatty Acids Capsule Discontinued 1000 MG PO Every morning February 18, 2022 12:00am March 23, 2023 1:58pmStart: 02-18-2022 End: 94-40-6568eavl 1 capsule by mouth once daily in the morningOmega-3 Fatty Acids Capsule Discontinued 1000 MG PO Every morning February 17, 2022 11:00pm March 23, 2023 12:58pmomeprazole 40 mg delayed release oral capsule (1 source)Proton Pump Inhibitortake 1 capsule by mouth once dailyomeprazole (PRILOSEC) 40 mg capsule Take 40 mg by mouth once daily. 0 ActiveComment on above:Take 40 mg by mouth once daily.24 hr oxybutynin chloride 15 mg extended release oral tablet (3 sources)Cholinergic Muscarinic Antagonist End: 70-33-6526ifuw 15 mg by mouth once dailyOXYBUTYNIN CHLORIDE ORAL Take 15 mg by mouth once daily. 0 11/20/2022 DiscontinuedComment on above:Take 15 mg by mouth once daily.pimavanserin 34 mg oral capsule (1 source)Atypical AntipsychoticStart: 07-03-2020 End: 82-59-3103zrts 1 capsule by mouth once daily at bedtimepimavanserin 34 mg Take 1 capsule by mouth daily at bedtime. 30 capsule 11 07/03/2020 08/23/2020 Discontinued (Other)Comment on above:Take 1 capsule by mouth daily at bedtime. piperacillin 4000 mg / tazobactam 500 mg injection (2 sources)Penicillin-class Antibacterial, beta Lactamase InhibitorStart: 06-28-2025 End: 15-40-8440cmmdliiddzul hydrochloride 25 mg oral tablet (3 sources)Phenothiazine End: 28-91-4824jhdq 1 tablet by mouth every six hours as neededpromethazine (PHENERGAN) 25 mg tablet 25 mg every 6 hours as needed for Nausea/Vomiting. 0 11/20/2022 DiscontinuedComment on above:25 mg every 6 hours as needed for Nausea/Vomiting. raNITIdine 150 mg oral tablet (9 sources)Histamine-2 Receptor AntagonistStart: 02-17-2019 End: 36-96-9274wjkl 1 tablet by mouth once dailyRanitidine Hcl (Zantac) 150 mg Tablet Discontinued 150 MG PO Daily February 17, 2019 12:00am August 29, 2021 10:35amrimegepant 75 mg disintegrating oral tablet (4 sources)Start: 12-29-2024 End: 73-45-6525Sueoe: 12-29-2024 End: 07-46-6082bcnk 1 tablet by mouth once as needed for headacheRimegepant (Nurtec Odt) 75 mg tablet,disintegrating Discontinued 75 MG PO Once as needed for migraine headache December 29, 2024 12:00am January 30, 2025 2:10pm rOPINIRole 1 mg oral tablet (20 sources)Nonergot Dopamine AgonistStart: 01-06-2024 End: 13-27-9510Yfwul: 04-19-2023 End: 25-53-7268dwpc 1 tablet by mouth once daily at bedtimerOPINIRole HCl 1 MG 1 tablets 1 to 3 hours before bedtime Orally Once a day for 90 days Active sennosides, senior care 8.6 mg oral tablet (2 sources)Start: 71-03-6783nquw 1 tablet by mouth twice dailysenna (SENOKOT) 8.6 mg tab Take 1 tablet by mouth twice daily. 0 12/06/2022 ActiveComment on above:Take 1 tablet by mouth twice daily.sildenafil 100 mg oral tablet (20 sources)Phosphodiesterase 5 InhibitorStart: 02-17-2019 End: 46-10-2655ltytjermlm 25 mg tablet unsure of doseComment on above:Take 100 mg by mouth as needed.50 ml sodium chloride 9 mg/ml injection (10 sources)Start: 02-14-2022 End: .9 % sodium chloride bolusStart: 02-08-2022 End: .9 % sodium chloride bolusStart: 32-10-9017ptrx 1 dose intravenously twice daily5-40 mL, IntraVENous, EVERY 12 HOURS SCHEDULED (2 times per day), First dose on Thu02/07/22 at 2100, Until Discontinued For Line Patency: Peripheral IV = 5 mL; Midline or Central Line = 10 mL/lumen.&a mp;nbsp; If following IV push medication, administer flush at same rate as the IV push. Flush volume is determined by type of infusion therapy being given. For non-viscoussolutions use: Peripheral IV = 5 mL Midline or Central Line = 10 mL/lumen For viscous solutions (i.e. blood components, parenteral nutrition, contrast media, or after obtaining blood sample) use: Peripheral IV = 10 mL Midline or Central Line = 20 mL/lumen Post-opStart: 51-84-5296JiqclIRLkjm, at 5-250 mL/hr, PRN, if patient receiving piggyback infusions and maintenance fluids are not ordered OR KVO fluids to protect IV site / prevent frequent line interruptions/ long duration, Starting on Thu02/07/22 at 1617 For piggyback infusion, administer at same rate as piggyback for atotal of 25 mL. Enter 25 mL into dose field and piggyback rate into rate field of order. If piggyback is infusing at a rate less than 100 mL/hr, enter 25 mL into dose field and 100 mL/hr into rate field of order. For KVO fluids, enter rate of 20 mL/hr or less into rate field of order. Post-opStart: 73-70-5927lqkl 5-40 mL intravenously once as needed5-40 mL, IntraVENous, PRN, Starting on Thu02/07/22 at [...] Midline or Central Line = 20 mL/lumen Post-opStart: 02-07-2022 End: 35-49-3593NljplPREnhd, at 75 mL/hr, CONTINUOUS, Starting on Thu02/07/22 at 1645, Post-opsodium phosphate, dibasic 35.5 mg/ml / sodium phosphate, monobasic 96.4 mg/ml enema (1 source)Start: enema, Rectal, DAILY PRN, Starting on Thu02/07/22 at 1617, Until Discontinued, Constipation Second line therapy for constipation, After 24 hours, if no result from first line PRN therapy, give second line therapy in combination with first line therapy. Post-opsucralfate 1000 mg oral tablet (13 sources)Aluminum ComplexStart: 02-17-2019 End: 24-46-3383Czygm: 04-28-2016 End: 87-47-7361tmjh 1 tablet by mouth four times dailysucralfate (CARAFATE) 1 gram tablet Take 1 tablet by mouth four times daily. 0 04/28/2016 11/20/2022 DiscontinuedComment on above:Take 1 tablet by mouth four times daily. sulfamethoxazole 400 mg / trimethoprim 80 mg oral tablet (20 sources)Dihydrofolate Reductase Inhibitor Antibacterial, Sulfonamide AntimicrobialStart: 01-30-2025 End: 42-60-9454kvam 1 tablet by mouth three times weeklySulfamethoxazole- Trimethoprim 400-80 mg tablet Discontinued 1 TAB PO 3 Times a week January 30, 2025 12:00am April 05, 2025 1:53pmStart: 12-27-2024 End: 72-12-5104Okord: 37-12-2658ipxs 1 tablet by mouth once in the morning sulfamethoxazole-trimethoprim (BACTRIM DS) 800-160 mg per tablet Take 1 tablet by mouth in the morning and 1 tablet before bedtime. Taking Thursday, Thursday, Thursday. 06/23/2024 ActiveStart: 06-21-2024 End: 98-62-4759Xqxpb: 06-21-2024 End: 15-06-9305delp 1 tablet by mouth twice dailySulfamethoxazole-Trimethoprim 800-160 mg tablet Discontinued 1 TAB PO Twice daily June 21, 2024 12:00am January 30, 2025 9:51amStart: 06-21-2024 End: 60-76-9269awrq 1 tablet by mouth twice dailySulfamethoxazole-Trimethoprim 800-160 mg tablet Discontinued 1 TAB PO Twice daily June 21, 2024 12:00am January 30, 2025 9:51amStart: 33-29-5523ysrn 1 tablet by mouth twice daily Sulfamethoxazole-Trimethoprim 800-160 mg tablet Active 1 TAB PO Twice daily June 21, 2024 12:00amStart: 50-36-0486pucg 1 tablet by mouth twice daily Sulfamethoxazole-Trimethoprim 800-160 mg tablet Active 1 TAB PO Twice daily June 20, 2024 11:00pmStart: 52-68-7038ytwb 1 tablet by mouth twice daily Sulfamethoxazole-Trimethoprim Active 1 TAB PO Twice daily June 21, 2024 12:00amSyringe (Disposable) 3 ML (17 sources)Start: 92-03-9142Noowfzp (Disposable) 3 ML as directed as directed as directed February, Not-Taking/PRNStart: 84-37-7774Slphkqv (Disposable) 3 ML as directed as directed as directed February, ActiveSyringe (Disposable) 3 mL syringe (5 sources)Start: 01-06-2024 End: 94-45-7278Onenhyd (Disposable) 3 mL syringe Discontinued 0 .Route January 06, 2024 12:00am April 05, 2025 1:54pm As directedStart: 20-53-8701Qpkhnyu (Disposable) 3 mL syringe Active 0 .Route January 06, 2024 12:00am As directed Start: 50-02-7891Xasdytm (Disposable) 3 mL syringe Active 0 .Route January 05, 2024 11:00pm As directedtamsulosin hydrochloride 0.4 mg oral capsule (20 sources)alpha-Adrenergic BlockerStart: 02-18-2022 End: 84-86-7573Jurcr: 02-07-2022 End: 63-72-2541khap 0.8 mg by mouth once daily0.8 mg, Oral, NIGHTLY, First dose on Thu02/07/22 at 2100, Until Discontinued Do not crush or break.Start: 12-05-2021 End: 04-86-8262mehm 1-2 capsules by mouth once dailyTamsulosin HCl 0.4 MG 1-2 capsules Orally Once a day for 90 days Nov, Not-Taking1 ml testosterone cypionate 200 mg/ml injection (20 sources)AndrogenStart: 02-10-2024 End: 54-41-0055Bsong: 02-10-2024 End: 84-88-3156zlbtvy 60 mg by intramuscular injection two times weekly Testosterone Cypionate Discontinued 60 MG IM .COMPLEX February 10, 2024 12:00am February 11, 2024 8:23am 60 mg intramuscularly twice a week;Start: 01-06-2024 End: 09-61-4372Pcyzd: 47-92-0873qsbask 0.3 mL by subcutaneous injection two times weeklyTestosterone Cypionate 200 MG/ML 0.3ml subq twice a week 10ml vial Apr, ActiveStart: 61-58-9507ckpecu 0.3 mL by subcutaneous injection two times weekly as neededTestosterone Cypionate 200 MG/ML 0.3ml subq twice a week 10ml vial Apr, Not-Taking/PRNStart: 24-44-4049cacuha 0.3 mL by subcutaneous injection two times weeklytiZANidine 4 mg oral tablet (13 sources)Central alpha-2 Adrenergic AgonistStart: 03-17-2018 End: 92-46-1596Uoqfdvf on above:Take 1 tablet by mouth every 8 hours as needed. TAKES 2 TAB AT HStobramycin 3 mg/ml ophthalmic solution (8 sources)Aminoglycoside AntibacterialStart: 08-09-2024 End: 01-31-3996Lxegt: 08-09-2024 End: 62-36-1251ffav 0.3 drop(s) into the eye(s) every four hoursTobramycin 0.3 % drops Discontinued 2 DROPS EYE-BOTH Every 4 hours 02 22August 09, 2024 12:00am June 28, 2025 2:33pmStart: 93-65-3710abwr 0.3 drop(s) into the eye(s) every four hoursTobramycin 0.3 % drops Active 2 DROPS EYE-BOTH Every 4 hours 02 22August 09, 2024 12:00amurea 400 mg/ml topical lotion (3 sources) End: 23-72-0894zmwi (CARMOL) 40 % lotn Apply to affected area twice daily. 0 11/20/2022 DiscontinuedComment on above:Apply to affected area twice daily. valACYclovir 500 mg oral tablet (10 sources)Herpesvirus Nucleoside Analog DNA Polymerase Inhibitor, Herpes Simplex Virus Nucleoside Analog DNA Polymerase Inhibitor, Herpes Zoster Virus Nucleoside Analog DNA Polymerase InhibitorStart: 02-18-2022 End: 68-03-7433ccvcicogzf (VANCOCIN) 1,500 mg in dextrose 5 % 500 mL IVPB (1 source)Start: 02-08-2022 End: ,500 mg, IntraVENous, EVERY 12 HOURS, 1 dose, First dose on 02/08/22 at 0015 Antimicrobial Indications: Surgical Prophylaxis Post-op Problems Active Problems Problem ClassificationProblemDateDocumented DateEpisodic/Chronic Administrative/social admission (20 sources)Other reduced mobility; Translations: [COVID-19 long hauler manifesting chronic decreased mobility and endurance]Onset: [id number] EpisodicAllergic reactions (2 sources)Contact dermatitis and other eczema due to other specified agents; Translations: [Irritant contact dermatitis due to fecal incontinence]Onset: [id number] disorders (20 sources)Other specified anxiety disorders; Translations: [Anxiety]01-15-2023 ChronicAortic; peripheral; and visceral artery aneurysms (1 source)Dissection of abdominal aorta; Translations: [Dissection of abdominal aorta]95-70-0928RzdrsdlQjuqgg (20 sources)Unspecified asthma, uncomplicated; Translations: [Asthma]Onset: [id number] infection; unspecified site (20 sources)Methicillin resistant Staphylococcus aureus infection, unspecified site; Translations: [Methicillinresistant Staphylococcus aureus]Onset: 01-27-2022 Resolved: 90-27-5591HhtrstpvZeaqfrte of urinary tract (20 sources)Calculus of kidney; Translations: [Personal history of urinary calculi]Onset: 01-27-2022 Resolved: 72-39-2832HzwazyccPrwnew of esophagus (10 sources)Malignant tumor of esophagus; Translations: [Malignant neoplasm of esophagus, unspecified]77-63-2802RmcqngqHhgnicu obstructive pulmonary disease and bronchiectasis (20 sources)Emphysema, unspecified; Translations: [Emphysematous bronchitis] Onset: [id number] obstructive pulmonary disease and bronchiectasis (2 sources)Bronchitis, not specified as acute or chronicEpisodicChronic ulcer of skin (20 sources)Ulcer; Translations: [Non-pressure chronic ulcer of skin of other sites with unspecified severity]Onset: 08-06-2021 Resolved: 09-56-3754GaiamabOtnxkztjonrc of device; implant or graft (1 source)Infection and inflammatory reaction due to indwelling urethral catheter, sequelaEpisodicConduction disorders (9 sources)Prolonged QT interval; Translations: [Encounter for adjustment and management of automatic implantable cardiac defibrillator]Onset: 04-28-2025 60-63-4470BqdzwjiXbwqwesj atherosclerosis and other heart disease (20 sources)Coronary atherosclerosisOnset: 866072-69-0101VztlewaTolpynujzq and other anemia (3 sources)Anemia, unspecified; Translations: [ANEMIA UNSPECIFIED]Onset: 07-52-6212JrxynlslGdysuhlrhx and other anemia (20 sources)Anemia; Translations: [Anemia, unspecified]79-03-7472Hhjontcu Deficiency and other anemia (20 sources)Iron deficiency anemia; Translations: [Iron deficiency anemia, unspecified]89-24-8596NkgikrxtTfihaitodf and other anemia (3 sources)Iron deficiency anemia, unspecified; Translations: [Iron deficiency anemia, unspecified]Onset: 74-75-4554PhvmyvcaNvsqpayz mellitus with complications (20 sources)Disorder of kidney due to diabetes mellitus; Translations: [Type 2 diabetes mellitus with diabetic nephropathy]Onset: hronic Diabetes mellitus without complication (20 sources)Diabetes mellitus; Translations: [Diabetes mellitus without mention of complication, type II or unspecified type, not stated as uncontrolled]Onset: 04-15-2017 Resolved: 532716-84-6685YzaipifHxqgcrwn mellitus without complication (13 sources)Hyperglycemia, unspecified; Translations: [Other abnormal glucose] Onset: 74-45-6562GaebaedcHhrkkwokf of lipid metabolism (20 sources)Hyperlipidemia; Translations: [Other and unspecified hyperlipidemia] Onset: 12-07-2017 Resolved: 510788-16-6972SsegcahH Codes: Fall (20 sources)Fall; Translations: [Unspecified fall, initial encounter]Onset: 182401-32-3515RarziiwgWwffekkrui disorders (20 sources)Gastro-esophageal reflux disease without esophagitis; 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]Onset: 08-06-2021 Resolved: 56-96-5482NxrtumhNeegdvmwd hypertension (20 sources)Essential (primary) hypertension; Translations: [Essential hypertension]Onset: 419400-57-8204DwtfsskRqphmmim (20 sources)Critical lower limb ischemia ; Translations: [Atherosclerosis of [place] arteries of extremities with gangrene, bilateral legs]Onset: 01-28-2024 56-62-8627DlnqxkcLuevshqxtelhsw ulcer (except hemorrhage) (2 sources)Gastrojejunal ulcer, unspecified as acute or chronic, without hemorrhage or perforation; Translations: [Gastrojejunal ulcer, unspecified as acute or chronic, without hemorrhage or perforation]Onset: 66-30-4970Vacxksu Gastrointestinal hemorrhage (2 sources)Chronic or unspecified gastric ulcer with hemorrhage; Translations: [Chronic or unspecified gastriculcer with hemorrhage]Onset: 74-07-0369Fhfuhfi Gastrointestinal hemorrhage (7 sources)Gastrointestinal hemorrhage; Translations: [Gastrointestinal hemorrhage, unspecified]Onset: 620892-62-2138HvoqybysEmsemnhlidsba symptoms and ill-defined conditions (20 sources)Urinary incontinence; Translations: [Unspecified urinary incontinence]Onset: 17-24-3960FipwlneCmliuttdlvnax symptoms and ill-defined conditions (20 sources)Urgent desire to urinate; Translations: [Urgency of urination]Onset: 791826-78-0115OgomvznbHtiueayl; including migraine (11 sources)Migraine without aura, not refractory ; Translations: [Migraine without aura, not intractable, without status migrainosus]40-89-1635Jrjrswm Headache; including migraine (19 sources)Frequent headache; Translations: [Frequent headaches]03-24-2023 EpisodicHyperplasia of prostate (20 sources)Benign prostatic hypertrophy with outflow obstruction; Translations: [Benign prostatic hyperplasia with lower urinary tract symptoms]Onset: 08-12-2010 Resolved: 485671-74-9219ZiikrxwNlovsnyyjkdnt and screening for infectious disease (16 sources)Needs influenza immunization; Translations: [Encounter for immunization]EpisodicIntestinal obstruction without hernia (10 sources)Intestinal obstruction co-occurrent and due to decreased peristalsis; Translations: [Ileus, unspecified]54-07-8016SdqjgmxjZxjoqufsyvwz injury (10 sources)Concussion with loss of consciousness; Translations: [Concussion with loss of consciousness of unspecified duration, initial encounter]05-28-2020 EpisodicMiscellaneous mental health disorders (7 sources)Psychosexual dysfunction; Translations: [Unspecified sexual dysfunction not due to a substance or known physiological condition]Onset: 515361-79-2005VjqjjioNbrp disorders (20 sources)Major depressive disorder, single episode, unspecified; Translations: [Depression]Onset: 704412-85-5009UtweaeiXbjavpz (1 source)Candidiasis of skin and nail; Translations: [Candidiasis of skin and nail]Onset: 48-47-6886QhwgbhurUigwra and vomiting (15 sources)Nausea; Translations: [Nausea]Onset: 05-21-2022 Resolved: 96-13-6819PwjocqpoTcdzkzduj of unspecified nature or uncertain behavior (20 sources)Monoclonal gammopathy of uncertain significance; Translations: [Monoclonal gammopathy]Onset: 856333-68-3553TqlzrtuRikjsynstha chest pain (5 sources)Chest pain; Translations: [Chest pain, unspecified]Episodic Nutritional deficiencies (5 sources)Deficiency of macronutrients; Translations: [Unspecified severe protein-calorie malnutrition]Onset: 807139-67-1427MpufwszGhoh wounds of extremities (10 sources)Amputated toe; Translations: [Complete traumatic amputation of one unspecified lesser toe, initial encounter]88-10-2972CuayqawVhkfoawuvxfrvh (20 sources)Unilateral primary osteoarthritis, right knee; Translations: [Unspecified osteoarthritis, unspecified site]Onset: 01-28-2017 Resolved: 933487-77-1094DqpueveYblwc acquired deformities (2 sources)Other kyphoscoliosis and scoliosisChronicOther aftercare (2 sources)Patient encounter status; Translations: [Encounter for palliative care]Onset: 393524-45-5768RpggfgkmEphii aftercare (1 source)Other fpc (current) drug therapy; 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]Onset: 50-24-9710VwutsdovUugif aftercare (2 sources)Encounter for other specified surgical aftercare; Translations: [Encounter for other specified surgical aftercare]Onset: 68-29-5406QwlxovlkUohxy bone disease and musculoskeletal deformities (20 sources)Acquired absence of other left toe(s); Translations: [Toe amputation status, left]EpisodicOther circulatory disease (2 sources)Idiopathic hypotension; Translations: [Idiopathic hypotension]Onset: 73-70-2875VgpxezfgXtvzu circulatory disease (6 sources)Hypotension, unspecified; Translations: [Hypotension I95.9]Onset: 08-06-2021 Resolved: 64-17-8137TtpxdhfgHyjlh circulatory disease (10 sources)Low blood pressure; Translations: [Hypotension, unspecified] 74-92-4815DitwelzeUxwjl circulatory disease (3 sources)Feeling of lump in throat; Translations: [Globus sensation]03-14-2025 EpisodicOther circulatory disease (3 sources)Disorder of autonomic nervous system; Translations: [Orthostatic hypotension]29-89-8866IfejwwzoInaix circulatory disease (1 source)Critical lower limb zesyavbe48-17-0664ColemqtmFrbef congenital anomalies (20 sources)Microstomia; Translations: [Microstomia]Onset: ChronicOther connective tissue disease (1 source)Presence of right artificial knee joint; Translations: [Presence of right artificial knee joint]Onset: 98-04-1194OiljozcEftjx connective tissue disease (20 sources)History of repair of hip joint; Translations: [Presence of unspecified artificial hip joint]ChronicOther connective tissue disease (20 sources)History of left shoulder arthroplasty; Translations: [Presence of left artificial shoulder joint]Onset: 199556-09-0285EbajawaEkshe connective tissue disease (2 sources)Pain in right legOnset: 60-01-2196QlyfnzedVzlih connective tissue disease (2 sources)Pain in left legOnset: 14-51-6621MetxgvkwHbydy connective tissue disease (1 source)Pain in right armOnset: 97-44-6292DounbymeHimng connective tissue disease (1 source)Pain in left armOnset: 49-15-5339SkeriilwYshqi connective tissue disease (20 sources)Muscle atrophy; Translations: [Muscle wasting and atrophy, not elsewhere classified, multiple sites]98-27-0124VwjnnoxoFlpjz diseases of bladder and urethra (20 sources)Neurogenic bladder; Translations: [Neuromuscular dysfunction of bladder, unspecified]33-55-6894PaxbiomIcsdj diseases of bladder and urethra (5 sources)Neuromuscular dysfunction of bladder, unspecified; Translations: [Neurogenic bladder NOS]Onset: 15-77-6051FabxhqsDwaod diseases of bladder and urethra (1 source)Disorder of bladder; Translations: [Other specified disorders of bladder]Onset: 41-29-5176CkvjlaqRqnua diseases of kidney and ureters (2 sources)Urinary tract obstruction; Translations: [Other obstructive and reflux uropathy]Onset: 00-05-9117MykdpjuqNuffm endocrine disorders (20 sources)Testicular hypofunctionOnset: 638446-22-1119GkbllweZvawi endocrine disorders (20 sources)Hypotestosteronism; Translations: [Endocrine disorder, unspecified] 93-48-9203AbjqtwvgZummp endocrine disorders (3 sources)Endocrine disorder, unspecified; Translations: [Unspecified endocrine disorder]EpisodicOther gastrointestinal disorders (20 sources)Neurogenic bowel; Translations: [Neurogenic bowel, not elsewhere classified]29-48-2911ZgwoutfNfpvz gastrointestinal disorders (5 sources)Neurogenic bowel, not elsewhere classified; Translations: [Neurogenic bowel]Onset: 03-25-4094BzodfflEsdig gastrointestinal disorders (20 sources)Constipation; Translations: [Constipation, unspecified]01-06-2024 EpisodicOther gastrointestinal disorders (20 sources)Complete fecal incontinence; Translations: [Full incontinence of feces]EpisodicOther gastrointestinal disorders (6 sources)Full incontinence of feces; Translations: [Full incontinence of feces]Onset: 94-66-1237JqmbulchHqwrp gastrointestinal disorders (6 sources)Diarrhea, unspecified; Translations: [Diarrhea]EpisodicOther gastrointestinal disorders (7 sources)Other fecal abnormalities; Translations: [Nonspecific abnormal findings in stool contents]EpisodicOther gastrointestinal disorders (10 sources)Diarrhea; Translations: [Diarrhea, unspecified]19-25-3059Hecgmhwe Other gastrointestinal disorders (10 sources)Incontinence of feces; Translations: [Full incontinence of feces] 83-60-0682AsbhozwjFgwxo gastrointestinal disorders (10 sources)Mucus in stool; Translations: [Other fecal abnormalities]01-22-2024 EpisodicOther hereditary and degenerative nervous system conditions (6 sources)Essential tremor; Translations: [Essential tremor]Onset: 10-27-2017 62-43-9985GmvxqduRcrvi hereditary and degenerative nervous system conditions (20 sources)Restless legs; Translations: [Restless legs syndrome]01-06-2024 ChronicOther hereditary and degenerative nervous system conditions (1 source)Restless legs syndromeChronicOther hereditary and degenerative nervous system conditions (2 sources)Sympathotonic orthostatic hypotension; Translations: [Multi-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]27-26-5449KaehtulYwmac hereditary and degenerative nervous system conditions (20 sources)Multiple system atrophy; Translations: [Multi-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]Onset: 055954-93-4801UxlvplhKukne hereditary and degenerative nervous system conditions (1 source)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; Translations: [Multi-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] 67-72-8505AvexlccHncyy hereditary and degenerative nervous system conditions (3 sources)Multi-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; Translations: [Multi-system degenerationof the autonomic nervous system]Onset: 21-23-9881FkvmwfyKdkjs hereditary and degenerative nervous system conditions (1 source)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; Translations: [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]Onset: 66-08-9495RnpcssjHcaxx injuries and conditions due to external causes (6 sources)Closed injury of head; Translations: [Unspecified injury of head, initial encounter]60-46-2147EabfoeqjWgtzk lower respiratory disease (5 sources)Dyspnea; Translations: [Other respiratory abnormalities]EpisodicOther lower respiratory disease (1 source)Shortness of breath; Translations: [SOB (shortness of breath)]Onset: 29-63-8009YyitrpcvDgzio male genital disorders (20 sources)Secondary erectile dysfunction; Translations: [Male erectile dysfunction, unspecified]Onset: 174910-67-0725GmzscylErpsi male genital disorders (20 sources)Impotence of organic origin; Translations: [Male erectile dysfunction, unspecified]ChronicOther male genital disorders (10 sources)Male erectile dysfunction, unspecified; Translations: [Erectile dysfunction]96-08-6008IwfidhkFycur nervous system disorders (20 sources)Chronic pain syndrome; Translations: [Chronic pain syndrome]Onset: 551764-27-2389MkfbmokJwugw nervous system disorders (20 sources)Complex regional pain syndrome type I; Translations: [Complex regional pain syndrome I, unspecified]Onset: 320512-49-1132RjkkqjeDcimm nervous system disorders (20 sources)Neuropathy; Translations: [Polyneuropathy, unspecified]01-06-2024 ChronicOther nervous system disorders (6 sources)Polyneuropathy, unspecifiedOnset: 10-23-2021 Resolved: 55-22-0462DjdlfykGqofq nervous system disorders (20 sources)Disorder of autonomic nervous system; Translations: [Disorder of the autonomic nervous system, unspecified]74-94-0714WomrtxqDwcgf nervous system disorders (2 sources)Disorder of the autonomic nervous system, unspecified; Translations: [Disorder of the autonomic nervous system, unspecified]Onset: 05-14-5232Stknuwu Other nervous system disorders (5 sources)Chronic pain syndrome; Translations: [Chronic pain syndrome]Onset: 71-64-1812GybplnaIrjlm nervous system disorders (20 sources)Difficulty walking; Translations: [Difficulty in walking, not elsewhere classified]Onset: 297078-96-5746QntzeoiGiknr nervous system disorders (20 sources)Walking difficulty due to ankle and foot; Translations: [Difficulty in walking, not elsewhere classified]Onset: 197421-43-9692BnuhgouKnwvx nervous system disorders (2 sources)Other chronic pain; Translations: [Other chronic pain]Onset: 62-86-9857WozcsmjVdboy nervous system disorders (4 sources)Anesthesia of skinEpisodicOther nervous system disorders (3 sources)Other disturbances of skin sensationOnset: 64-64-5698JyuqamrvSwpam nervous system disorders (20 sources)Abnormal involuntary movement; Translations: [Tremor, unspecified] EpisodicOther nervous system disorders (20 sources)Ataxia; Translations: [Ataxia, unspecified]05-83-3974EcakwkzeEvked nervous system disorders (10 sources)Finding of hand region; Translations: [Tremor, unspecified] 38-73-4461KwijwejlVldvq nervous system disorders (2 sources)Dysmetria; Translations: [Other lack of coordination]03-14-2025 EpisodicOther nervous system disorders (1 source)Other lack of coordination; Translations: [Other lack of coordination] Onset: 52-97-9184PfndcnmuDwaxo nutritional; endocrine; and metabolic disorders (20 sources)Obesity; Translations: [Obesity, unspecified]77-34-5962IgzhfraPonpf nutritional; endocrine; and metabolic disorders (20 sources)Obese class I; Translations: [Obesity, unspecified]Onset: 03-17-2018 08-11-2135FaxnlneUmxwh nutritional; endocrine; and metabolic disorders (2 sources)Other obesity due to excess calories; Translations: [Other obesity due to excess calories]Onset: 03-92-8893KaugvvbUoosj nutritional; endocrine; and metabolic disorders (1 source)Obesity, unspecified; Translations: [Obesity, unspecified]Onset: 39-24-9688UfteopeImisi nutritional; endocrine; and metabolic disorders (1 source)Adult failure to thrive; Translations: [Failure to thrive in adult] Onset: 26-15-9581BlgulhwoDswqf nutritional; endocrine; and metabolic disorders (2 sources)Abnormal weight loss; Translations: [Abnormal weight loss]Onset: 21-66-0513PkflhqgoRkvsq skin disorders (2 sources)Skin eschar; Translations: [Changes in skin texture]Onset: 11-24-2022 07-34-9998KsgqwlqnPbmnzx media and related conditions (1 source)Unspecified Eustachian tube disorder, bilateralEpisodicParkinson`s disease (20 sources)Symptomatic parkinsonism; Translations: [Paralysis agitans]Onset: 04-13-2019 Resolved: 617205-46-0536EnfcuzyNwegjmjjj`s disease (2 sources)Parkinson`s disease; Translations: [Parkinson's disease without dyskinesia, without mention of fluctuations]Onset: 70-36-1359Rgqrlmvl; pneumothorax; pulmonary collapse (20 sources)Atelectasis; Translations: [Atelectasis]EpisodicResidual codes; unclassified (4 sources)Sleep apnea, unspecified; Translations: [Unspecified sleep apnea] Onset: 096271-14-0569WyzxmdnTuvogumq codes; unclassified (20 sources)Postprocedural state finding; Translations: [Presence of other specified functional implants]Onset: 255205-51-4889DncxboaBbyepsmf codes; unclassified (20 sources)Sleep apnea; Translations: [Sleep apnea, unspecified]05-03-2020 ChronicResidual codes; unclassified (1 source)Dependence on wheelchair; Translations: [DEPENDENCE ON WHEELCHAIR] Onset: 80-60-8107RdpxtytBkqgjqzh codes; unclassified (1 source)H/O Spinal surgery; Translations: [Presence of other specified functional implants]61-18-8612EqvtnybPghdtgpu codes; unclassified (20 sources)Insomnia; Translations: [Insomnia, unspecified]04-50-1887Jwdxbzub Residual codes; unclassified (2 sources)At risk of delirium; Translations: [Other specified personal risk factors, not elsewhere classified]Onset: 906759-19-7764TeteutyjVbadwbdn codes; unclassified (10 sources)History of operative procedure on lumbar spinal structure; Translations: [Other specified postprocedural states]14-12-6396Cautlqfc Septicemia (except in labor) (8 sources)Sepsis; Translations: [Sepsis, unspecified organism]06-21-2024 EpisodicShock (2 sources)Shock, unspecified; Translations: [Shock, unspecified]Onset: 58-91-8053QnsdyeakJxpwykxgjwp; intervertebral disc disorders; other back problems (20 sources)Displacement of thoracic intervertebral disc without myelopathy; Translations: [Other intervertebral disc displacement, thoracic region]Onset: 03-06-2004 Resolved: 312656-83-2240IxiddrnRyobzpvgwic; intervertebral disc disorders; other back problems (20 sources)Low back pain; Translations: [Cervicalgia]Onset: 03-06-2004 Resolved: 903688-31-4337NijecydfYxljcxzec-smyqkbv disorders (20 sources)Smoker; Translations: [Tobacco use disorder]Onset: 03-17-2018 41-85-6995VptxtbiGvikjyc on above:6 ciggs daily;Syncope (20 sources)Syncope; Translations: [Syncope and collapse]Onset: 08-29-2020 26-15-7026AfvrvnciMylcolzstsct (20 sources)Parkinson's disease; Translations: [Parkinson's disease]Onset: 729682-53-1106FhdudiuYxoefthlulld (1 source)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; Translations: [Psychosis due to Parkinson's disease ([facility])]01-29-1324XrvgmdeJqhspjqxawgd (3 sources)Unknown / UNK(Unknown)Onset: 67-47-8827Tnvnjczhysps (20 sources)Disorder of rotator cuff; Translations: [Rotator cuff syndrome of shoulder and allied disorders]Onset: 435792-11-1584Gmyqyuyhvmxm (1 source)NO SHOWUnclassified (1 source)CONTACT W/AND (SUSP) EXPOS COVID-19; Translations: [CONTACT W/AND (SUSP) EXPOS COVID-19]Onset: 35-37-0646Ljblpjmdacex (1 source)Patient encounter -67-3640Pgycrjxtyolp (1 source)Open wound of left great lvd79-57-5633Vjzezdlzpuwr (1 source)1 year follow up no testingOnset: 06-95-3028Rmxexfbptyjg (2 sources)Foreign body sensation, throat; Translations: [Foreign body sensation, throat]Onset: 99-80-3680Dwvfqzotpviw (2 sources)Neurology- follow up as needed.Unclassified (2 sources)follow up as you are scheduled from most recent appointment Unclassified (2 sources)Follow-up with primary provider after discharge from rehab, within 1- 2 weeks.Unclassified (2 sources)Rehab provider- follow up as needed.Unclassified (2 sources)[facility] surgery clinicUnclassified (1 source)[facility], follow up 07/10/25 was canceled while admitted to Rehab, call after discharge to reschedule this appointment.Viral infection (2 sources)Disease caused by 2019-nCoV; Translations: [COVID-19]Onset: 891013-56-3910Xpiaxquk Past or Other Problems Problem ClassificationProblemDateDocumented DateEpisodic/ChronicAcquired foot deformities (20 sources)Right foot drop; Translations: [Foot drop, right foot]Onset: 298159-29-7221BaytktcrQefoz and unspecified renal failure (13 sources)Acute renal failure syndromeOnset: 747825-67-0811Ndketics Deficiency and other anemia (6 sources)Iron deficiency anemia secondary to inadequate dietary iron intake; Translations: [Other iron deficiency anemias]Onset: 003483-30-2975Ehhzrcus Deficiency and other anemia (20 sources)Megaloblastic anemia due to vitamin B>12< deficiency; Translations: [Other megaloblastic anemias, not elsewhere classified]Onset: 12-30-2019 17-54-1869VgovjqzyZscsxflede and other anemia (20 sources)Iron deficiency anemia due to dietary causes; Translations: [Other iron deficiency anemias]Onset: 550328-76-6820ZjxxepowBqmhyvi and fatigue (20 sources)Asthenia; Translations: [Weakness]Onset: EpisodicMood disorders (20 sources)Mood disorders; Translations: [DEPRESSION UNSPECIFIED]Onset: 11-16-2023 Resolved: Open wounds of extremities (20 sources)Open wound, heel; Translations: [Unspecified open wound, left foot, initial encounter]Onset: 803762-63-8326DosnjxaoPhnuq aftercare (1 source)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; Translations: [CORRECTION USE ORAL HYPOGLYCEMIC DX]Onset: 77-33-1518BleencqbVkuzj aftercare (1 source)Encounter for other orthopedic aftercare; Translations: [ENC FOR OTHER ORTHOPEDIC AFTERCARE]Onset: 42-46-6758DlrpiifpHsyjx circulatory disease (20 sources)Orthostatic hypotension; Translations: [Orthostatic hypotension] Onset: 360175-32-9100YtgayrnnBrxdv circulatory disease (7 sources)Orthostatic hypotension; Translations: [Orthostatic hypotension] Onset: 47-33-6551FocjyxwqQlpox connective tissue disease (1 source)Unspecified rotator cuff tear or rupture of unspecified shoulder, not specified as traumatic; Translations: [Unspecified rotator cuff tear or rupture of unspecified shoulder, not specified as traumatic]Onset: 46-27-5003Egcbomqe Other connective tissue disease (1 source)Disorder of rotator cuff; Translations: [Rotator cuff syndrome of shoulder and allied disorders]Onset: 321443-94-8839GkkyjdkxNmubb connective tissue disease (20 sources)Full thickness rotator cuff tear; Translations: [Complete rotator cuff tear or rupture of right shoulder, not specified as traumatic]Onset: 484170-78-6045KicnswgrZxvsr connective tissue disease (20 sources)Recurrent falls ; Translations: [Repeated falls]Onset: 08-29-2020 09-39-2751NjzndivpUqunc connective tissue disease (3 sources)History of cervical spine fusion; Translations: [Arthrodesis status] Onset: 819163-91-0700FexyllciAbuwp connective tissue disease (1 source)Pain in right footOnset: 08-27-2021 Resolved: 32-64-1823MjkmdjgjEmtsf connective tissue disease (2 sources)Arthrodesis status; Translations: [ARTHRODESIS STATUS]Onset: 94-74-0896EjrdmnisXbbxq gastrointestinal disorders (20 sources)Dysphagia; Translations: [Dysphagia, unspecified]Onset: 04-13-2019 21-12-5833ZknxnjmuIrskr gastrointestinal disorders (5 sources)Constipation, unspecified; Translations: [Constipation, unspecified] Onset: 08-27-2021 Resolved: 83-13-6000JjpwyjieOcegu gastrointestinal disorders (2 sources)Dysphagia, unspecified; Translations: [Dysphagia, unspecified]Onset: 48-93-3315BlkxepkkXvhcz injuries and conditions due to external causes (1 source)History of fallingOnset: 10-23-2021 Resolved: 77-80-9569AhnmhergCgjnq injuries and conditions due to external causes (1 source)Other specified injuries of head, initial encounter; Translations: [Other specified injuries of head, initial encounter]Onset: 70-89-9970Rklhnmhx Other nervous system disorders (20 sources)Multifactorial gait problem; Translations: [Other abnormalities of gait and mobility]Onset: 775795-80-2863ImrrqigdWximy non-epithelial cancer of skin (20 sources)Malignant tumor of lip; 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]Onset: [id number] non-traumatic joint disorders (1 source)Pain in right knee; Translations: [Pain in right knee]Onset: 30-74-2910DmwbcgrvKdxfp nutritional; endocrine; and metabolic disorders (1 source)Body mass index (BMI) 26.0-26.9, adult; Translations: [BODY MASS INDEX BMI 26.0-26.9 ADULT]Onset: 39-30-7035EnnjjnjxDoqsh screening for suspected conditions (not mental disorders or infectious disease) (20 sources)Screening status; Translations: [Encounter for screening for malignant neoplasm of respiratory organs]Onset: 08-27-2021 Resolved: 50-45-7001JuvoygwsEmwssog on above:MRSA suprapubic cath site 07/17/2023 Pneumonia (except that caused by tuberculosis or sexually transmitted disease) (4 sources)Pneumonia, unspecified organism; Translations: [PNEUMONIA UNSPECIFIED ORGANISM]Onset: 72-11-8666DrntqtxlFnoiinzp codes; unclassified (20 sources)Tobacco use and exposure - finding; Translations: [Tobacco use] Onset: 869033-08-1737QrboxzqwMomrwtyqw and history of mental health and substance abuse codes (1 source)Personal history of nicotine dependence; Translations: [PERSONAL HISTORY OF NICOTINE DEPEND]Onset: 91-03-4052UvgborxqWxlqkkj and strains (6 sources)Neck sprain; Translations: [Sprain of joints and ligaments of unspecified parts of neck, initial encounter]Onset: 464202-33-6613Hlxpwwzo Unclassified (1 source)History of COVID-19 Z86.16Unclassified (20 sources)Onset: 08-25-2022 Resolved: 889171-28-4000Frmrybu tract infections (20 sources)Acute cystitis; Translations: [Acute cystitis without hematuria] Onset: 685444-43-2816Uidvgorj Results Test NameValueInterpretationReference RangeFacilityNo Panel InformationOrdered By: Fidel Ibarra on [id number]oiq Regional Medical CenterMODERATEAbnormalNEGATIVENorwalk Memorial HospitalCLEARCLEAR [facility] HospitalYELLOWYELLOWNorwalk Memorial Hospital LARGEAbnormalNEGATIVENorwalk Memorial HospitalPositiveAbnormalNEGATIVE [facility]7.05.0-9.0[facility]30 mg/dLAbnormalNEG/TRACENorwalk Memorial Hospital1.0201.005-1.025[facility]1.0 EU/dL0.2-1.0[facility] HospitalUrine Cultureon 28-81-3826Sonhjqcu identified Cx Nom (U)ORGANISM: Pseudomonas aeruginosa (O:PSEAER) [place] Count >100,000 Aerobic SABI Charge (NMIC56) SUSCEPTIBILITY [...] RESISTANT TO ALL B-LACTAM DRUGS. PERFORMED BY: [place] [address] PATHOLOGIST DIRECTOR ADULT JUAN DIEGO CAMACHO M.D.[facility] Physician GroupComment on above: Performed By: #### CUU #### [address] [address] USAOrders Onlyon 89-90-8803Vstjzs OnlyNormalUniversUniversity Hospitals St. John Medical CenterGlucose Poct Glucometerson 25-47-3034Gobrirk [Mass/Vol]95 mg/dLNoNovant Health Clemmons [facility] Center Physician GroupComment on above:Result Comment: Random Glucose Reference Range is dependent on time and content of last meal. Glucose of more than 200 mg/dL in a nonstressed, ambulatory subject supports the diagnosis of Diabetes Mellitus. PERFORMED BY: [place] [address] PATHOLOGIST DIRECTOR ADULT JUAN DIEGO CAMACHO M.D.Performed By: #### LIPID, CMP, PSAS, TSH3, CBC #### [facility] [address] [place] [address] USAGlucose Poct Glucometerson 41-19-6341Chwqgpc [Mass/Vol]104 mg/dLNoNovant Health Clemmons Medical Center Physician GroupComment on above:Result Comment: Random Glucose Reference Range is dependent on time and content of last meal. Glucose of more than 200 mg/dL in a nonstressed, ambulatory subject supports the diagnosis of Diabetes Mellitus. PERFORMED BY: [place] [id number] PATHOLOGIST DIRECTOR ADULT JUAN DIEGO CAMACHO M.D.Performed By: #### GLULS #### Point of Care testing ,Glucose [Mass/Vol]218 mg/dLHeritage Hospital Physician GroupComment on above: Result Comment: Random Glucose Reference Range is dependent on time and content of last meal. Glucose of more than 200 mg/dL in a nonstressed, ambulatory subject supports the diagnosis of Diabetes Mellitus. PERFORMED BY: [place] [address] PATHOLOGIST DIRECTOR ADULT JUAN DIEGO CAMACHO M.D.Performed By: #### LIPID, CMP, PSAS, TSH3, CBC #### [place] [address] USAGlucose Poct Glucometerson 68-26-7679Ziilerg8Wkm6: Cleaned MeterHeritage Hospital Physician GroupComment on above:Result Comment: PERFORMED BY: [place] [address] PATHOLOGIST DIRECTOR ADULT JUAN DIEGO CAMACHO M.D.Performed By: #### LIPID, CMP, PSAS, TSH3, CBC #### [place] [address] USAGlucose [Mass/Vol]136 mg/dLNoNovant Health Clemmons Medical Center Physician GroupComment on above:Result Comment: Random Glucose Reference Range is dependent on time and content of last meal. Glucose of more than 200 mg/dL in a nonstressed, ambulatory subject supports the diagnosis of Diabetes Mellitus.Performed By: #### LIPID, CMP, PSAS, TSH3, CBC #### [place] [id number] [id number]: Cleaned MeterHeritage Hospital Physician GroupComment on above:Result Comment: PERFORMED BY: [place] [address] PATHOLOGIST DIRECTOR ADULT JUAN DIEGO CAMACHO M.D.Performed By: #### LIPID, CMP, PSAS, TSH3, CBC #### [place] [id number] USAGlucose [Mass/Vol]72 mg/dLNoHawthorn Children's Psychiatric Hospitallands Physician GroupComment on above:Result Comment: Random Glucose Reference Range is dependent on time and content of last meal. Glucose of more than 200 mg/dL in a nonstressed, ambulatory subject supports the diagnosis of Diabetes Mellitus.Performed By: #### LIPID, CMP, PSAS, TSH3, CBC #### [place] [address] USABasic Metabolic Panelon 42-57-4329Eiovn gap [Moles/Vol]6.3 mmol/LNormal6.0-15.0The [facility] Physician GroupComment on above:Performed By: #### LIPID, CMP, PSAS, TSH3, CBC #### [place] [address] USACalcium [Mass/Vol]8.7 mg/dLNormal8.6-10.3The [facility] Physician GroupComment on above:Performed By: #### LIPID, CMP, PSAS, TSH3, CBC #### [place] [address] USAChloride [Moles/Vol]101 mmol/HCoyays12-977Bbt [facility] Physician GroupComment on above:Performed By: #### LIPID, CMP, PSAS, TSH3, CBC #### [place] [address] USACO2 [Moles/Vol]32.7 mmol/LHigh21.0-31.0The [facility] Physician GroupComment on above:Performed By: #### LIPID, CMP, PSAS, TSH3, CBC #### [place] [address] USACreatinine [Mass/Vol]0.96 mg/dLNormal0.70-1.30The [facility] Physician GroupComment on above:Performed By: #### LIPID, CMP, PSAS, TSH3, CBC #### [place] [address] USACreatinine Clr Calc Tglzrlxw92.36NormCampbellton-Graceville Hospital Physician GroupComment on above:Result Comment: PERFORMED BY: [place] [address] PATHOLOGIST DIRECTOR ADULT JUAN DIEGO CAMACHO M.D.Performed By: #### LIPID, CMP, PSAS, TSH3, CBC #### [facility] [address] [place] [address] USAGFR/1.73 sq M.predicted MDRD (S/P/Bld) [Vol rate/Area] mL/min/{1.73_m2}NormalThe [facility] Physician GroupComment on above:Performed By: #### LIPID, CMP, PSAS, TSH3, CBC #### [facility] [address] [place] [address] USAGlucose [Mass/Vol]102 mg/uDVsnl49-324Zkx [facility] Physician GroupComment on above:Result Comment: Random Glucose Reference Range is dependent on time and content of last meal. Glucose of more than 200 mg/dL in a nonstressed, ambulatory subject supports the diagnosis of Diabetes Mellitus. ADA recommended reference rangePerformed By: #### LIPID, CMP, PSAS, TSH3, CBC #### [facility] [address] [place] [address] USAPotassium [Moles/Vol]4.0 mmol/LNormal3.5-5.1The [facility] Physician GroupComment on above:Performed By: #### LIPID, CMP, PSAS, TSH3, CBC #### [facility] [address] [place] [address] USASodium [Moles/Vol]136 mmol/DFxkcem961-769Hln [facility] Physician GroupComment on above:Performed By: #### LIPID, CMP, PSAS, TSH3, CBC #### [facility] [address] [place] [id number] USAUrea nitrogen [Mass/Vol]12 mg/dLNormale [facility] Physician GroupComment on above:Performed By: #### LIPID, CMP, PSAS, TSH3, CBC #### [facility] [address] [place] [id number] USAGlucose Poct Glucometerson 10-92-1037Rytamny [Mass/Vol]117 mg/dLNormalThe [facility] Physician GroupComment on above:Result Comment: Random Glucose Reference Range is dependent on time and content of last meal. Glucose of more than 200 mg/dL in a nonstressed, ambulatory subject supports the diagnosis of Diabetes Mellitus. PERFORMED BY: [place] [address] PATHOLOGIST DIRECTOR ADULT JUAN DIEGO CAMACHO M.D.Performed By: #### LIPID, CMP, PSAS, TSH3, CBC #### [place] [address] [id number]: Cleaned MeterNoNovant Health [facility] Center Physician GroupComment on above:Result Comment: PERFORMED BY: [place] [address] PATHOLOGIST DIRECTOR ADULT JUAN DIEGO CAMACHO M.D.Performed By: #### LIPID, CMP, PSAS, TSH3, CBC #### [place] [address] USAGlucose [Mass/Vol]95 mg/dLHeritage Hospital Physician GroupComment on above:Result Comment: Random Glucose Reference Range is dependent on time and content of last meal. Glucose of more than 200 mg/dL in a nonstressed, ambulatory subject supports the diagnosis of Diabetes Mellitus.Performed By: #### LIPID, CMP, PSAS, TSH3, CBC #### [place] [address] USAScan and CBCon 84-88-5747Cwpbcizhnekl Ql (Bld)SlightNormal The [facility] Physician GroupComment on above:Performed By: #### LIPID, CMP, PSAS, TSH3, CBC #### [place] [address] USABasophils (Bld) [#/Vol]0.0 10*3/uLNormal0.0-0.2The [facility] Physician GroupComment on above:Performed By: #### LIPID, CMP, PSAS, TSH3, CBC #### [place] [address] USABasophils/100 WBC (Bld)0.2 %Normal.The [facility] Physician GroupComment on above:Performed By: #### LIPID, CMP, PSAS, TSH3, CBC #### [place] [address] USAEosinophils (Bld) [#/Vol]0.2 10*3/uLNormal0.0-0.45The [facility] Physician GroupComment on above:Performed By: #### LIPID, CMP, PSAS, TSH3, CBC #### [place] [address] USAEosinophils/100 WBC (Bld)4.4 %Normal.The [facility] Physician GroupComment on above:Performed By: #### LIPID, CMP, PSAS, TSH3, CBC #### [place] [address] USAErythrocyte distribution width (RBC) [Ratio]15.4 %High 12.0-14.8The [facility] Physician GroupComment on above:Performed By: #### LIPID, CMP, PSAS, TSH3, CBC #### [place] [address] USAHematocrit (Bld) [Volume fraction]35.5 %Low38.8-50.0The [facility] Physician GroupComment on above:Performed By: #### LIPID, CMP, PSAS, TSH3, CBC #### [place] [address] USAHemoglobin (Bld) [Mass/Vol]11.4 g/dLLow13.0-17.0The [facility] Physician GroupComment on above:Performed By: #### LIPID, CMP, PSAS, TSH3, CBC #### [place] [address] USALarge PlateletsSlightNoNovant Health [facility] Physician Group Comment on above:Result Comment: PERFORMED BY: [place] [address] PATHOLOGIST DIRECTOR ADULT JUAN DIEGO CAMACHO M.D.Performed By: #### LIPID, CMP, PSAS, TSH3, CBC #### [place] [address] USALymphocytes (Bld) [#/Vol]0.9 10*3/uLLow1.00-4.8The [facility] Physician GroupComment on above:Performed By: #### LIPID, CMP, PSAS, TSH3, CBC #### [place] [address] USALymphocytes/100 WBC (Bld)20.5 %Normal.The [facility] Physician GroupComment on above:Performed By: #### LIPID, CMP, PSAS, TSH3, CBC #### [address]H (RBC) [Entitic mass]28.9 osBkywaw15.5-35.2The [facility] Physician GroupComment on above:Performed By: #### LIPID, CMP, PSAS, TSH3, CBC #### [address]V (RBC) [Entitic vol]90.0 gNCtmymw72.5-101The [facility] Physician GroupComment on above:Performed By: #### LIPID, CMP, PSAS, TSH3, CBC #### [place] [address] USAMean Corpuscular HGB Conc32.1 g/dLLow32.5-35.6The [facility] Physician GroupComment on above:Performed By: #### LIPID, CMP, PSAS, TSH3, CBC #### [place] [address] USAMonocytes (Bld) [#/Vol]0.4 10*3/uLNormal0.0-0.8The [facility] Physician GroupComment on above:Performed By: #### LIPID, CMP, PSAS, TSH3, CBC #### [place] [address] USAMonocytes/100 WBC (Bld)9.4 %Normal.The [facility] Physician GroupComment on above:Performed By: #### LIPID, CMP, PSAS, TSH3, CBC #### [place] [id number] USANeutrophils (Bld) [#/Vol]2.8 10*3/uLNormal1.8-7.7The [facility] Physician GroupComment on above:Performed By: #### LIPID, CMP, PSAS, TSH3, CBC #### [place] [address] USANeutrophils/100 WBC (Bld)65.5 %Normal.The [facility] Physician GroupComment on above:Performed By: #### LIPID, CMP, PSAS, TSH3, CBC #### [facility] [address] [place] [address] USANRBC%0.2 /100{WBC}Normal0-0.5The [facility] Physician Group Comment on above:Performed By: #### LIPID, CMP, PSAS, TSH3, CBC #### [place] [address] USAPlatelet EstimateDecreasedNormalNormalThe [facility] Physician GroupComment on above:Performed By: #### LIPID, CMP, PSAS, TSH3, CBC #### [place] [address] USAPlatelet mean volume (Bld) [Entitic vol]11.4 fLHigh 6.6-10.1The [facility] Physician GroupComment on above:Performed By: #### LIPID, CMP, PSAS, TSH3, CBC #### [place] [address] USAPlatelets (Bld) [#/Vol]113 10*3/kYZyr021-168Sca [facility] Physician GroupComment on above:Performed By: #### LIPID, CMP, PSAS, TSH3, CBC #### [place] [address] USARBC (Bld) [#/Vol]3.95 10*6/uLNormal3.90-5.60The [facility] Physician GroupComment on above:Performed By: #### LIPID, CMP, PSAS, TSH3, CBC #### [place] [address] USAWBC (Bld) [#/Vol]4.2 10*3/uLNormal4.1-10.5The [facility] Physician GroupComment on above:Performed By: #### LIPID, CMP, PSAS, TSH3, CBC #### [facility] [address] [place] [address] USAWhite Blood Count4.2 [CFU]/mLNormal4.1-10.5The [facility] Physician GroupComment on above:Performed By: #### LIPID, CMP, PSAS, TSH3, CBC #### [facility] [address] [place] [address] USAGlucose Poct Glucometerson 34-23-8657Zawintb [Mass/Vol]126 mg/dLNoNov[facility] Physician GroupComment on above:Result Comment: Random Glucose Reference Range is dependent on time and content of last meal. Glucose of more than 200 mg/dL in a nonstressed, ambulatory subject supports the diagnosis of Diabetes Mellitus. PERFORMED BY: [place] [address] PATHOLOGIST DIRECTOR ADULT JUAN DIEGO CAMACHO M.D.Performed By: #### LIPID, CMP, PSAS, TSH3, CBC #### [place] [address] USAGlucose [Mass/Vol]98 mg/dLNoNov[facility] Physician GroupComment on above:Result Comment: Random Glucose Reference Range is dependent on time and content of last meal. Glucose of more than 200 mg/dL in a nonstressed, ambulatory subject supports the diagnosis of Diabetes Mellitus. PERFORMED BY: [place] [address] PATHOLOGIST DIRECTOR ADULT JUAN DIEGO CAMACHO M.D.Performed By: #### LIPID, CMP, PSAS, TSH3, CBC #### [place] [id number] USAGlucose Poct Glucometerson 93-04-1564Uchacdj [Mass/Vol]116 mg/dLNoNov[facility] Physician GroupComment on above:Result Comment: Random Glucose Reference Range is dependent on time and content of last meal. Glucose of more than 200 mg/dL in a nonstressed, ambulatory subject supports the diagnosis of Diabetes Mellitus. PERFORMED BY: [place] [address] PATHOLOGIST DIRECTOR ADULT JUAN DIEGO CAMACHO M.D.Performed By: #### LIPID, CMP, PSAS, TSH3, CBC #### [place] [address] USAGlucose [Mass/Vol]225 mg/dLNoNov[facility] Physician GroupComment on above:Result Comment: Random Glucose Reference Range is dependent on time and content of last meal. Glucose of more than 200 mg/dL in a nonstressed, ambulatory subject supports the diagnosis of Diabetes Mellitus. PERFORMED BY: [place] [address] PATHOLOGIST DIRECTOR ADULT JUAN DIEGO CAMACHO M.D.Performed By: #### CUU #### [place] [address] USAGlucose [Mass/Vol]117 mg/dLNoNov[facility] Physician GroupComment on above:Result Comment: Random Glucose Reference Range is dependent on time and content of last meal. Glucose of more than 200 mg/dL in a nonstressed, ambulatory subject supports the diagnosis of Diabetes Mellitus. PERFORMED BY: [place] [address] PATHOLOGIST DIRECTOR ADULT JUAN DIEGO CAMACHO M.D.Performed By: #### CUU #### [place] [address] USAGlucose Poct Glucometerson 06-11-3107Treswtr [Mass/Vol]156 mg/dLNoNov[facility] Physician GroupComment on above:Result Comment: Random Glucose Reference Range is dependent on time and content of last meal. Glucose of more than 200 mg/dL in a nonstressed, ambulatory subject supports the diagnosis of Diabetes Mellitus. PERFORMED BY: [place] [address] PATHOLOGIST DIRECTOR ADULT JUAN DIEGO CAMACHO M.D.Performed By: #### LIPID, CMP, PSAS, TSH3, CBC #### [facility] [address] [place] [address] IAZ21qg [id number] verbal order of Dr. Luis patient should continue wound vacc for 4 weeks Nurse at [facility] notifiedNormalUnifaith community hospitality of Methodist Special[facility] Transplant HospitalGlucose Poct Glucometerson 76-69-5639Jawyelu [Mass/Vol]139 mg/dLNoNov[facility] Physician GroupComment on above:Result Comment: Random Glucose Reference Range is dependent on time and content of last meal. Glucose of more than 200 mg/dL in a nonstressed, ambulatory subject supports the diagnosis of Diabetes Mellitus. PERFORMED BY: [place] [address] PATHOLOGIST DIRECTOR ADULT JUAN DIEGO CAMACHO M.D.Performed By: #### LIPID, CMP, PSAS, TSH3, CBC #### [place] [address] USAGlucose [Mass/Vol]122 mg/dLNoNov[facility] Physician GroupComment on above:Result Comment: Random Glucose Reference Range is dependent on time and content of last meal. Glucose of more than 200 mg/dL in a nonstressed, ambulatory subject supports the diagnosis of Diabetes Mellitus. PERFORMED BY: [place] [address] PATHOLOGIST DIRECTOR ADULT JUAN DIEGO CAMACHO M.D.Performed By: #### CUU #### [place] [id number] USAGlucose Poct Glucometerson 85-86-8240Mptmoex [Mass/Vol]100 mg/dLNoNov[facility] Physician GroupComment on above:Result Comment: Random Glucose Reference Range is dependent on time and content of last meal. Glucose of more than 200 mg/dL in a nonstressed, ambulatory subject supports the diagnosis of Diabetes Mellitus. PERFORMED BY: [place] [address] PATHOLOGIST DIRECTOR ADULT JUAN DIEGO CAMACHO M.D.Performed By: #### CUU #### [place] [address] USAGlucose [Mass/Vol]84 mg/dLNormalThe [facility] Physician GroupComment on above:Result Comment: Random Glucose Reference Range is dependent on time and content of last meal. Glucose of more than 200 mg/dL in a nonstressed, ambulatory subject supports the diagnosis of Diabetes Mellitus. PERFORMED BY: [place] [address] PATHOLOGIST DIRECTOR ADULT JUAN DIEGO CAMACHO M.D.Performed By: #### CUU #### [place] [address] USADipstick and Microscopicon 66-15-5068Ohjpmvgyr Crystal,Urine1+ [HPF]NormalThe [facility] Physician GroupComment on above:Order Comment: Name Collection Type:: Suprapubic CollectionPerformed By: #### LIPID, CMP, PSAS, TSH3, CBC #### [place] [address] USAAppearance (U)CloudyCritically abnormalClearThe [facility] Physician GroupComment on above:Order Comment: Name Collection Type:: Suprapubic CollectionPerformed By: #### LIPID, CMP, PSAS, TSH3, CBC #### [place] [address] USABacteria,UrineRareNormalNone SeenThe [facility] Physician GroupComment on above:Order Comment: Name Collection Type:: Suprapubic CollectionPerformed By: #### LIPID, CMP, PSAS, TSH3, CBC #### [place] [address] USABilirubin,UrineNegativeNormalNegativeThe [facility] Physician GroupComment on above:Order Comment: Name Collection Type:: Suprapubic CollectionPerformed By: #### LIPID, CMP, PSAS, TSH3, CBC #### [place] [address] USABudding Yeast,Urine2+ [HPF]NormalNone SeenThe [facility] Physician GroupComment on above:Order Comment: Name Collection Type:: Suprapubic CollectionResult Comment: PERFORMED BY: [place] [address] PATHOLOGIST DIRECTOR ADULT JUAN DIEGO CAMACHO M.D.Performed By: #### LIPID, CMP, PSAS, TSH3, CBC #### [place] [address] USAColor (U)YellowNormalYellowAdventhealth Timberridge Er Physician Group Comment on above:Order Comment: Name Collection Type:: Suprapubic Collection Performed By: #### LIPID, CMP, PSAS, TSH3, CBC #### [place] [address] USAGlucose Ql (U)NormalNormalNormalThBoise Veterans Affairs Medical Center Physician GroupComment on above:Order Comment: Name Collection Type:: Suprapubic CollectionPerformed By: #### LIPID, CMP, PSAS, TSH3, CBC #### [place] [address] USAGranular Casts, Urine1-2NormalNone SeenAdventhealth Timberridge Er Physician GroupComment on above:Order Comment: Name Collection Type:: Suprapubic CollectionPerformed By: #### LIPID, CMP, PSAS, TSH3, CBC #### [place] [address] USAHyaline Casts,Miffc1-0Rsszbf7-9Syf [facility] Physician GroupComment on above:Order Comment: Name Collection Type:: Suprapubic CollectionPerformed By: #### LIPID, CMP, PSAS, TSH3, CBC #### [place] [address] USAKetones Ql (U)NegativeNormalNegativeAdventhealth [facility] Er Physician GroupComment on above:Order Comment: Name Collection Type:: Suprapubic CollectionPerformed By: #### LIPID, CMP, PSAS, TSH3, CBC #### [place] [address] USALeukocyte esterase Test strip Ql (U)4+NormalNegativeAdventhealth [facility] Er Physician GroupComment on above:Order Comment: Name Collection Type:: Suprapubic CollectionPerformed By: #### LIPID, CMP, PSAS, TSH3, CBC #### [place] [address] USAMucus,UrineRareNormalThe [facility] Physician GroupComment on above:Order Comment: Name Collection Type:: Suprapubic CollectionPerformed By: #### LIPID, CMP, PSAS, TSH3, CBC #### [place] [address] USANitrite,UrineNegativeNormalNegativeThe [facility] Physician GroupComment on above:Order Comment: Name Collection Type:: Suprapubic CollectionPerformed By: #### LIPID, CMP, PSAS, TSH3, CBC #### [place] [address] USAOccult Blood,UrineNegativeNormalNegativeThe [facility] Physician GroupComment on above:Order Comment: Name Collection Type:: Suprapubic CollectionResult Comment: PERFORMED BY: [place] [address] PATHOLOGIST DIRECTOR ADULT JUAN DIEGO CAMACHO M.D.Performed By: #### LIPID, CMP, PSAS, TSH3, CBC #### [place] [address] USApH (U)7.5 [pH]Normal5.0-9.0The [facility] Physician Group Comment on above:Order Comment: Name Collection Type:: Suprapubic Collection Performed By: #### LIPID, CMP, PSAS, TSH3, CBC #### [place] [address] USAProtein,UrineTraceNormalNegativeThe [facility] Physician GroupComment on above:Order Comment: Name Collection Type:: Suprapubic CollectionPerformed By: #### LIPID, CMP, PSAS, TSH3, CBC #### [place] [address] USARBC,[id number] [facility] Physician GroupComment on above:Order Comment: Name Collection Type:: Suprapubic CollectionPerformed By: #### LIPID, CMP, PSAS, TSH3, CBC #### [place] [address] USASpecificy [place],Urine1.324Ignyai1.001-1.030The [facility] Physician GroupComment on above:Order Comment: Name Collection Type:: Suprapubic CollectionPerformed By: #### LIPID, CMP, PSAS, TSH3, CBC #### [place] [address] USAUrobilinogen,UrineNormalNormalNormSt. Mary's Medical Centere [facility] Physician [facility]oving[facility] County HospitalComment on above:Order Comment: Name Collection Type:: Suprapubic CollectionPerformed By: #### LIPID, CMP, PSAS, TSH3, CBC #### [place] [address] USAWBC CLUMP, UrineModerateNormalNone SeenThe [facility] Physician [facility] HospitalComment on above:Order Comment: Name Collection Type:: Suprapubic CollectionPerformed By: #### LIPID, CMP, PSAS, TSH3, CBC #### [place] [address] USAWBC,Tgomf08-611Wkuwok7-3Vtr [facility] Physician Group Comment on above:Order Comment: Name Collection Type:: Suprapubic Collection Performed By: #### LIPID, CMP, PSAS, TSH3, CBC #### [place] [address] USAGlucose Poct Glucometerson 90-10-9099Ufzcbtz [Mass/Vol]118 mg/dLHeritage Hospital Physician [facility] County HospitalComment on above:Result Comment: Random Glucose Reference Range is dependent on time and content of last meal. Glucose of more than 200 mg/dL in a nonstressed, ambulatory subject supports the diagnosis of Diabetes Mellitus. PERFORMED BY: [place] [address] PATHOLOGIST DIRECTOR ADULT JUAN DIEGO CAMACHO M.D.Performed By: #### LIPID, CMP, PSAS, TSH3, CBC #### [place] [address] STRYloyiqk2Xog1: Cleaned MeterNoNovant Health Clemmons Medical Center Physician GroupComment on above:Result Comment: PERFORMED BY: [place] [address] PATHOLOGIST DIRECTOR ADULT JUAN DIEGO CAMACHO M.D.Performed By: #### LIPID, CMP, PSAS, TSH3, CBC #### [place] [address] USAGlucose [Mass/Vol]91 mg/dLNoNovant Health Clemmons [facility] Center Physician GroupComment on above:Result Comment: Random Glucose Reference Range is dependent on time and content of last meal. Glucose of more than 200 mg/dL in a nonstressed, ambulatory subject supports the diagnosis of Diabetes Mellitus.Performed By: #### LIPID, CMP, PSAS, TSH3, CBC #### [place] [address] USAMISC LABon 03-79-0143WNZS LABNoNovant Health Cle[facility] Center Physician GroupComment on above:Order Comment: Reason for Exam Hyperlipidemia Reason for Exam: HyperlipidemiaResult Comment: See report. Scanned copy available in EMR. PERFORMED BY: [place] [address] PATHOLOGIST DIRECTOR ADULT JUAN DIEGO CAMACHO M.D.Performed By: #### LIPID, CMP, PSAS, TSH3, CBC #### [place] [address] USAUrine Cultureon 90-51-2251Fqxhaqlb identified Cx Nom (U) ORGANISM: Pseudomonas aeruginosa (O:PSEAER) [place] Count >100,000 Aerobic SABI Charge (NMIC56) SUSCEPTIBILITY [...] RESISTANT TO ALL B-LACTAM DRUGS. PERFORMED BY: [place] [address] PATHOLOGIST DIRECTOR ADULT JUAN DIEGO CAMACHO M.D.NormalThe [facility] Physician GroupComment on above: Performed By: #### LIPID, CMP, PSAS, TSH3, CBC #### [address] [address] USAVitamin Aon 91-95-7345Wlsjkes A29.8 ug/kQDjofcf10.0-69.5 The [facility] Physician GroupComment on above:Order Comment: Fasting? (See Test/Proc Notes): YResult Comment: Reference intervals for vitamin A determined from [facility] internal studies. Individuals with vitamin A less than 20 ug/dL are considered vitamin A deficient and those with serum concentrations less than 10 ug/dL are considered severely deficient. This test was developed and its performance characteristics determined by [employer]. It has not been cleared or approved by the Food and Drug Administration. Performed at: [facility] [employer] [id number] Commercial Loan Manager: Smita Marmolejo MD, Phone: [phone] PERFORMED BY: [address] [address] PATHOLOGIST DIRECTOR ADULT JUAN DIEGO CAMACHO M.D.Performed By: #### LIPID, CMP, PSAS, TSH3, CBC #### [address] [address] USAVitamin B1 (Thiamine) Bloodon 50-19-2649Nqwhdib B1 (Thiamine) Blood91.7Qilpxn84.5-200.0The [facility] Physician GroupComment on above:Result Comment: This test was developed and its performance characteristics determined by [employer]. It has not been cleared or approved by the Food and Drug Administration. Performed at: [address] [id number] Commercial Loan Manager: Smita Marmolejo MD, Phone: [phone] PERFORMED BY: [place] [address] PATHOLOGIST DIRECTOR ADULT JUAN DIEGO CAMACHO M.D.Performed By: #### LIPID, CMP, PSAS, TSH3, CBC #### [place] [address] USAVitamin B2 Levelon 52-15-4903Gwjgkfp B2 Xgspg676Dsktfm 137-370The [facility] Physician GroupComment on above:Result Comment: This test was developed and its performance characteristics determined by [facility]. It has not been cleared or approved by the Food and Drug Administration. Reference interval reflects Flavin Adenine Dinucleotide (FAD), that accounts for approximately 90% of the total riboflavin in whole blood. Performed at: [address] [id number] Commercial Loan Manager: Smita Marmolejo MD, Phone: [phone] PERFORMED BY: [place] [address] PATHOLOGIST DIRECTOR ADULT JUAN DIEGO CAMACHO M.D.Performed By: #### LIPID, CMP, PSAS, TSH3, CBC #### [place] [address] USAVitamin B6on 72-17-1385Qodqexy B6<1.2Kyutjv8.4-65.2The [facility] Physician [facility] County HospitalComment on above:Result Comment: Verified by repeat analysis This test was developed and its performance characteristics determined by [employer]. It has not been cleared or approved by the Food and Drug Administration. Deficiency: <3.4 Marginal: 3.4 - 5.1 Adequate: >5.1 Performed at: [address] [id number] Commercial Loan Manager: Smita Marmolejo MD, Phone: [phone] PERFORMED BY: [address] [address] PATHOLOGIST DIRECTOR ADULT JUAN DIEGO CAMACHO M.D.Performed By: #### LIPID, CMP, PSAS, TSH3, CBC #### [facility] [address] [place] [id number] OND00uu [id number] from [facility] called regarding wound vac, should patient continue wound vac or should they use wet to dry dressing on woundNormalUniversity of Methodist Specialty And Transplant HospitalComprehensive Metabolic Panelon 13-76-3945Pjqqlsr [Mass/Vol]3.2 g/dLLow3.5-5.7The [facility] Physician GroupComment on above: Performed By: #### LIPID, CMP, PSAS, TSH3, CBC #### [facility] [address] [place] [address] USAAlbumin/Globulin [Mass ratio]1.2 {ratio}NormalThe [facility] Physician GroupComment on above:Performed By: #### LIPID, CMP, PSAS, TSH3, CBC #### [facility] [address] [place] [address] USAALP [Catalytic activity/Vol]112 U/URrck58-011Ecz [facility] Physician GroupComment on above:Performed By: #### LIPID, CMP, PSAS, TSH3, CBC #### [facility] [address] [place] [address] USAALT [Catalytic activity/Vol]U/LLow7-52The [facility] Physician GroupComment on above:Performed By: #### LIPID, CMP, PSAS, TSH3, CBC #### [facility] [address] [place] [address] USAAnion gap [Moles/Vol]8.5 mmol/LNormal6.0-15.0The [facility] Physician GroupComment on above:Performed By: #### LIPID, CMP, PSAS, TSH3, CBC #### [facility] [address] [place], [place] [address] USAAST [Catalytic activity/Vol]6 U/XBsm79-13Hfa [facility] Physician GroupComment on above:Performed By: #### LIPID, CMP, PSAS, TSH3, CBC #### [facility] [address] [place] [address] USABilirubin [Mass/Vol]0.4 mg/dLNormal0.3-1.0The [facility] Physician GroupComment on above:Performed By: #### LIPID, CMP, PSAS, TSH3, CBC #### [place] [address] USACalcium [Mass/Vol]8.4 mg/dLLow8.6-10.3The [facility] Physician GroupComment on above:Performed By: #### LIPID, CMP, PSAS, TSH3, CBC #### [place] [address] USAChloride [Moles/Vol]107 mmol/NXavqnu09-680Vwz [facility] Physician GroupComment on above:Performed By: #### LIPID, CMP, PSAS, TSH3, CBC #### [place] [address] USACO2 [Moles/Vol]29.1 mmol/KTpould38.0-31.0The [facility] Physician GroupComment on above:Performed By: #### LIPID, CMP, PSAS, TSH3, CBC #### [place] [address] USACreatinine [Mass/Vol]0.93 mg/dLNormal0.70-1.30The [facility] Physician GroupComment on above:Performed By: #### LIPID, CMP, PSAS, TSH3, CBC #### [place] [address] USACreatinine Clr Calc Dehxtfbo83.29NormalThe [facility] Physician GroupComment on above:Performed By: #### LIPID, CMP, PSAS, TSH3, CBC #### [place] [address] USAGFR/1.73 sq M.predicted MDRD (S/P/Bld) [Vol rate/Area] mL/min/{1.73_m2}NormalThe [facility] Physician GroupComment on above:Performed By: #### LIPID, CMP, PSAS, TSH3, CBC #### [place] [address] USAGlobulin (S) [Mass/Vol]2.6 g/dLNormalThe [facility] Physician GroupComment on above:Performed By: #### LIPID, CMP, PSAS, TSH3, CBC #### [place] [address] USAGlucose [Mass/Vol]109 mg/uVHubf36-218Qwi [facility] Physician GroupComment on above:Result Comment: Random Glucose Reference Range is dependent on time and content of last meal. Glucose of more than 200 mg/dL in a nonstressed, ambulatory subject supports the diagnosis of Diabetes Mellitus. ADA recommended reference rangePerformed By: #### LIPID, CMP, PSAS, TSH3, CBC #### [place] [address] USAPotassium [Moles/Vol]3.6 mmol/LNormal3.5-5.1The [facility] Physician GroupComment on above:Performed By: #### LIPID, CMP, PSAS, TSH3, CBC #### [place] [address] USAProtein [Mass/Vol]5.8 g/dLLow6.4-8.9The [facility] Physician GroupComment on above:Performed By: #### LIPID, CMP, PSAS, TSH3, CBC #### [place] [address] USASodium [Moles/Vol]141 mmol/JAppjfb896-966Gtb [facility] Physician GroupComment on above:Performed By: #### LIPID, CMP, PSAS, TSH3, CBC #### [place] [address] USAUrea nitrogen [Mass/Vol]9 mg/dLNormal7-25The [facility] Physician GroupComment on above:Performed By: #### LIPID, CMP, PSAS, TSH3, CBC #### [place] [address] USACopperon 84-62-3323Pbaidh84 ug/lCJdxmzb47-027Pbw [facility] Physician GroupComment on above:Result Comment: This test was developed and its performance characteristics determined by [employer]. It has not been cleared or approved by the Food and Drug Administration. Detection Limit = 5 Performed at: [facility] [id number] Commercial Loan Manager: Smita Marmolejo MD, Phone: [phone] PERFORMED BY: [place] [address] PATHOLOGIST DIRECTOR ADULT JUAN DIEGO CAMACHO M.D.Performed By: #### LIPID, CMP, PSAS, TSH3, CBC #### [place] [address] USAFerritinon 54-78-6657Oozvnfpf [Mass/Vol]21.3 ng/mLLow 23.9-336.2The [facility] Physician GroupComment on above:Performed By: #### LIPID, CMP, PSAS, TSH3, CBC #### [place] [address] USAFolate, RBCon 82-52-2009Brnhjp, Ittslcdzgg628.0 ng/mL NormalNot Estab.The [facility] Physician GroupComment on above:Performed By: #### LIPID, CMP, PSAS, TSH3, CBC #### [place] [address] USAFolate, XWN153 ng/mLNormal>498The [facility] Physician GroupComment on above:Result Comment: Performed at: [facility] [id number] Commercial Loan Manager: Rodriguez Maloney PhD, Phone: [phone] PERFORMED BY: [place] [address] PATHOLOGIST DIRECTOR ADULT JUAN DIEGO CAMACHO M.D.Performed By: #### LIPID, CMP, PSAS, TSH3, CBC #### [place] [address] USAHematocrit (Bld) [Volume fraction]36.6 %Jvipve37.5-51.0The [facility] Physician GroupComment on above:Performed By: #### LIPID, CMP, PSAS, TSH3, CBC #### [place] [address] USAGlucose Poct Glucometerson 04-11-9495Rleayam9Yar9: Cleaned MeterNoNov[facility] Health [facility] Physician [facility] County HospitalComment on above:Result Comment: PERFORMED BY: [place] [address] PATHOLOGIST DIRECTOR ADULT JUAN DIEGO CAMACHO M.D.Performed By: #### CUU #### [place] [address] USAGlucose [Mass/Vol]98 mg/dLNoNovant Health [facility] Physician GroupComment on above:Result Comment: Random Glucose Reference Range is dependent on time and content of last meal. Glucose of more than 200 mg/dL in a nonstressed, ambulatory subject supports the diagnosis of Diabetes Mellitus.Performed By: #### CUU #### [place] [address] USAGlucose [Mass/Vol]77 mg/dLNoNovant Health [facility] Physician GroupComment on above:Result Comment: Random Glucose Reference Range is dependent on time and content of last meal. Glucose of more than 200 mg/dL in a nonstressed, ambulatory subject supports the diagnosis of Diabetes Mellitus. PERFORMED BY: [place] [address] PATHOLOGIST DIRECTOR ADULT JUAN DIEGO CAMACHO M.D.Performed By: #### LIPID, CMP, PSAS, TSH3, CBC #### [place] [address] USAIron and TIBC Profileon 07-07-2025% Iron Qmrdownvbb28.3 % Kcampp34-59Zbp [facility] Physician GroupComment on above:Performed By: #### LIPID, CMP, PSAS, TSH3, CBC #### [address] [address] USAIron [Mass/Vol]64 ug/sEZvegnl28-214Tzt [facility] Physician GroupComment on above:Performed By: #### LIPID, CMP, PSAS, TSH3, CBC #### [place] [address] USATotal Iron Binding Qwcuvzob951 ug/uNDhyjaw947-462Jcs [facility] Physician GroupComment on above:Performed By: #### LIPID, CMP, PSAS, TSH3, CBC #### [place] [address] USATransferrin [Mass/Vol]225 mg/jVCzceyo136-350Mif [facility] Physician GroupComment on above:Performed By: #### LIPID, CMP, PSAS, TSH3, CBC #### [place] [address] USAScan and CBCon 01-78-5447Msnwtixhjlrf Ql (Bld)SlightNormal The [facility] Physician GroupComment on above:Performed By: #### LIPID, CMP, PSAS, TSH3, CBC #### [place] [address] USABasophils (Bld) [#/Vol]0.0 10*3/uLNormal0.0-0.2The [facility] Physician GroupComment on above:Performed By: #### LIPID, CMP, PSAS, TSH3, CBC #### [place] [address] USABasophils/100 WBC (Bld)0.2 %Normal.The [facility] Physician GroupComment on above:Performed By: #### LIPID, CMP, PSAS, TSH3, CBC #### [place] [address] USAEosinophils (Bld) [#/Vol]0.2 10*3/uLNormal0.0-0.45The [facility] Physician GroupComment on above:Performed By: #### LIPID, CMP, PSAS, TSH3, CBC #### [place] [address] USAEosinophils/100 WBC (Bld)4.5 %Normal.The [facility] Physician GroupComment on above:Performed By: #### LIPID, CMP, PSAS, TSH3, CBC #### [place] [address] USAErythrocyte distribution width (RBC) [Ratio]16.1 %High 12.0-14.8The [facility] Physician GroupComment on above:Performed By: #### LIPID, CMP, PSAS, TSH3, CBC #### [place] [address] USAHematocrit (Bld) [Volume fraction]35.9 %Low38.8-50.0The [facility] Physician GroupComment on above:Performed By: #### LIPID, CMP, PSAS, TSH3, CBC #### [place] [address] USAHemoglobin (Bld) [Mass/Vol]11.7 g/dLLow13.0-17.0The [facility] Physician GroupComment on above:Performed By: #### LIPID, CMP, PSAS, TSH3, CBC #### [place] [address] USAHypochromasiaSCritical access hospital Physician Group Comment on above:Performed By: #### LIPID, CMP, PSAS, TSH3, CBC #### [place] [address] USALarge PlateletsSCritical access hospital Physician Group Comment on above:Result Comment: PERFORMED BY: [place] [address] PATHOLOGIST DIRECTOR ADULT JUAN DIEGO CAMACHO M.D.Performed By: #### LIPID, CMP, PSAS, TSH3, CBC #### [place] [address] USALymphocytes (Bld) [#/Vol]0.9 10*3/uLLow1.00-4.8The [facility] Physician GroupComment on above:Performed By: #### LIPID, CMP, PSAS, TSH3, CBC #### [place] [address] USALymphocytes/100 WBC (Bld)23.4 %Normal.The [facility] Physician GroupComment on above:Performed By: #### LIPID, CMP, PSAS, TSH3, CBC #### [place] [address] USAMCH (RBC) [Entitic mass]29.2 vtJpefgg82.5-35.2The [facility] Physician GroupComment on above:Performed By: #### LIPID, CMP, PSAS, TSH3, CBC #### [address] StreetMCV (RBC) [Entitic vol]90.0 dOUodyus18.5-101The [facility] Physician GroupComment on above:Performed By: #### LIPID, CMP, PSAS, TSH3, CBC #### [place] [address] USAMean Corpuscular HGB Conc32.4 g/dLLow32.5-35.6The [facility] Physician GroupComment on above:Performed By: #### LIPID, CMP, PSAS, TSH3, CBC #### [place] [address] USAMonocytes (Bld) [#/Vol]0.4 10*3/uLNormal0.0-0.8The [facility] Physician GroupComment on above:Performed By: #### LIPID, CMP, PSAS, TSH3, CBC #### [place] [address] USAMonocytes/100 WBC (Bld)9.2 %Normal.The [facility] Physician GroupComment on above:Performed By: #### LIPID, CMP, PSAS, TSH3, CBC #### [place] [address] USANeutrophils (Bld) [#/Vol]2.5 10*3/uLNormal1.8-7.7The [facility] Physician GroupComment on above:Performed By: #### LIPID, CMP, PSAS, TSH3, CBC #### [place] [address] USANeutrophils/100 WBC (Bld)62.7 %Normal.The [facility] Physician GroupComment on above:Performed By: #### LIPID, CMP, PSAS, TSH3, CBC #### [place] [address] USANRBC%0.1 /100{WBC}Normal0-0.5The [facility] Physician [facility] Comment on above:Performed By: #### LIPID, CMP, PSAS, TSH3, CBC #### [place] [address] USAPlatelet EstimateDecreasedNormalHeritage Hospital Physician GroupComment on above:Performed By: #### LIPID, CMP, PSAS, TSH3, CBC #### [place] [address] USAPlatelet mean volume (Bld) [Entitic vol]11.2 fLHigh 6.6-10.1The [facility] Physician GroupComment on above:Performed By: #### LIPID, CMP, PSAS, TSH3, CBC #### [place] [address] USAPlatelet MorphologyNormalNormalHeritage Hospital Physician GroupComment on above:Performed By: #### LIPID, CMP, PSAS, TSH3, CBC #### [place] [address] USAPlatelets (Bld) [#/Vol]87 10*3/yDDnf483-626Vtp [facility] Physician GroupComment on above:Performed By: #### LIPID, CMP, PSAS, TSH3, CBC #### [place] [address] USAPolychromasiaSCritical access hospital Physician [facility] Comment on above:Performed By: #### LIPID, CMP, PSAS, TSH3, CBC #### [place] [address] USARBC (Bld) [#/Vol]4.00 10*6/uLNormal3.90-5.60The [facility] Physician GroupComment on above:Performed By: #### LIPID, CMP, PSAS, TSH3, CBC #### [place] [address] USAStomatocytesSlightHeritage Hospital Physician Group Comment on above:Performed By: #### LIPID, CMP, PSAS, TSH3, CBC #### [place] [address] USAWBC (Bld) [#/Vol]4.0 10*3/uLLow4.1-10.5The [facility] Physician GroupComment on above:Performed By: #### LIPID, CMP, PSAS, TSH3, CBC #### [place] [address] USAWhite Blood Count4.0 [CFU]/mLLow4.1-10.5The [facility] Physician GroupComment on above:Performed By: #### LIPID, CMP, PSAS, TSH3, CBC #### [place] [address] USAThyroid Stimulating Hormoneon 18-25-1572VNH Qn1.21 m[IU]/L Normal0.45-5.33The [facility] Physician GroupComment on above:Result Comment: PERFORMED BY: [place] [address] PATHOLOGIST DIRECTOR ADULT JUAN DIEGO CAMACHO M.D.Performed By: #### LIPID, CMP, PSAS, TSH3, CBC #### [place] [address] USAVitamin B12on 00-20-8765Avrxfduvs (Vitamin B12) [Mass/Vol] 465 pg/iWHeavba254-141Rov [facility] Physician GroupComment on above:Performed By: #### LIPID, CMP, PSAS, TSH3, CBC #### [place] [address] USAVitamin D 25 Hydroxy,Tot+D2+D3on 90-40-5134Wvq Jazlyn Vitamin D 25 OH13 ng/mLNormal.The [facility] Physician GroupComment on above: Result Comment: Reference Range: All Ages: Target levels 30 - 100Performed By: #### LIPID, CMP, PSAS, TSH3, CBC #### [place] [address] USAVitamin D-2<1.0Normal.The [facility] Physician GroupComment on above:Result Comment: This test was developed and its performance characteristics determined by [facility]. It has not been cleared or approved by the Food and Drug Administration.Performed By: #### LIPID, CMP, PSAS, TSH3, CBC #### [place] [address] USAVitamin D-313 ng/mLNormal.The [facility] Physician Group Comment on above:Result Comment: This test was developed and its performance characteristics determined by [facility]. It has not been cleared or approved by the Food and Drug Administration. Performed at: [facility] [address] [place] [id number] Commercial Loan Manager: Jonh Ott MD, Phone: [phone] PERFORMED BY: [place] [address] PATHOLOGIST DIRECTOR ADULT JUAN DIEGO CAMACHO M.D.Performed By: #### LIPID, CMP, PSAS, TSH3, CBC #### [place] [address] USAZinc, Whole Bloodon 28-39-8313Dwuu, Whole Ucvfi631 ug/dL Gudnyb031-216Rdl [facility] Physician GroupComment on above:Result Comment: This test was developed and its performance characteristics determined by [facility]. It has not been cleared or approved by the Food and Drug Administration. Please note reference interval change Performed at: [facility] [address] [id number] Commercial Loan Manager: Smita Marmolejo MD, Phone: [phone] PERFORMED BY: [place] [address] PATHOLOGIST DIRECTOR ADULT JUAN DIEGO CAMACHO M.D.Performed By: #### LIPID, CMP, PSAS, TSH3, CBC #### [address]CBC WITH AUTO DIFFERENTIALon 34-57-6046Nwbpqezzj (Bld) [#/Vol]0.00 10*3/uLNormal0.00-0.20UnMount St. Mary HospitalComment on above:Performed By: #### [id number] ####[facility] (BEAKER)[address] [place], [place] [address]Qfosgborr/100 WBC (Bld)0.0 %Normal0.0-1.0UnMount St. Mary HospitalComment on above:Performed By: #### [id number] ####[facility] ([facility])[address] [place], [place] [address]Cmqluvbmala (Bld) [#/Vol]0.18 10*3/uL Normal0.00-0.50UnMount St. Mary HospitalComment on above:Performed By: #### [id number] ####[facility] ([facility])[address] [place] [address] Eosinophils/100 WBC (Bld)3.2 %Normal0.0-6.0UnMount St. Mary Hospital Comment on above:Performed By: #### [id number] ####[facility] ([facility])[address] [place], [place] [address]Uxuhowkcafb distribution width (RBC) [Ratio]16.1 % High11.5-15.0UnMount St. Mary HospitalComment on above:Performed By: #### [id number] ####[facility] ([facility])[address] [place] [address] ERYTHROCYTE MEAN CORPUSCULAR HEMOGLOBIN CONCENTRATION (G/DL) BY BSYXEHXLB91.0 g/dLLow32.0-35.0UnMount St. Mary HospitalComment on above:Performed By: #### [id number] ####[facility] ([facility])[address] [place], [place] [address]Fqvcifbukp (Bld) [Mass/Vol]11.9 g/dLLow12.0-17.0UnMount St. Mary HospitalComment on above:Performed By: #### [id number] ####[facility] ([facility])[address] [place], [place] [address]Fikghwgw granulocytes (Bld) [#/Vol] 0.02 10*3/uLNormal0.00-0.20UnMount St. Mary HospitalComment on above: Performed By: #### [id number] ####[facility] (BEAKER)[address] [place] [address]Jzmlqgkb granulocytes/100 WBC (Bld)0.4 %Normal0.0-1.0 Main Campus Medical CenterComment on above:Performed By: #### [id number] ####[facility] ([facility])[address] [place] [address]QVNMTFKP PLATELET FRACTION %13.2 %High0.8-6.3UnMount St. Mary HospitalComment on above:Performed By: #### [id number] ####[facility] ([facility])[address] [place] [address]Plzikwtcbog (Bld) [#/Vol]1.23 10*3/uLNormal1.20-4.00 [facility] CenterComment on above:Performed By: #### [id number] ####[facility] ([facility])[address] [place] [address]Evhcprjtroc/100 WBC (Bld)22.0 %Ciykfy35.0-45.0UnMount St. Mary HospitalComment on above:Performed By: #### [id number] ####[facility] ([facility])[address] [place] [address]RPD (RBC) [Entitic mass]29.2 jfIavuvq98.0-33.0UnMount St. Mary HospitalComment on above:Performed By: #### [id number] ####[facility] ([facility])[address] [place], [place] [address]GVC (RBC) [Entitic vol] 94.1 sDZtqats51.0-98.0UnMount St. Mary HospitalComment on above: Performed By: #### [id number] ####[facility] ([facility])[address] [place] [address]Fyxfenave (Bld) [#/Vol]0.52 10*3/uLNormal0.10-1.00UnMount St. Mary HospitalComment on above:Performed By: #### [id number] ####[facility] (BEAKER)[address] [place] [address]Wmthutvgl/100 WBC (Bld) 9.3 %Normal5.0-12.0UnMount St. Mary HospitalComment on above:Performed By: #### [id number] ####[facility] (BEAKER)[address] [address]Uxdbhdlbkcf (Bld) [#/Vol]3.64 10*3/uLNormal1.60-7.60UnMount St. Mary HospitalComment on above:Performed By: #### [id number] ####[facility] (BEAKER)[address] [address]Crqnvosaddc/100 WBC (Bld)65.1 %Normal 40.0-72.0UnMount St. Mary HospitalComment on above:Performed By: #### [id number] ####[facility] (BEAKER)[address] [place] [address]FISS (PER 100 WBCS) BY AUTOMATED COUNT0.0 %Fptiqm6YjiugokzdqMount St. Mary Hospital Comment on above:Performed By: #### [id number] ####[facility] (BEAKER)[address] [place] [address]SFCURZGZR (10*3/UL) IN BLOOD AUTOMATED WZZCP982 10*3/hTTzu641-219VrfwdphtlbMount St. Mary HospitalComment on above:Performed By: #### [id number] ####[facility] (BEAKER)[address] [place] [address]IWE (Bld) [#/Vol]4.08 10*6/uLNormal3.80-5.70UnMount St. Mary HospitalComment on above:Performed By: #### [id number] ####[facility] (BEAKER)[address] [place] [address]PKB (Bld) [#/Vol]5.59 10*3/uLNormal 4.00-10.60UnMount St. Mary HospitalComment on above:Performed By: #### [id number] ####[facility] (BEAKER)[address] [place] [address] COMPREHENSIVE METABOLIC PANELon 65-06-8187KXOUYPO AMINOTRANSFERASE (SGPT) (U/L) IN SER/PLAS<0Gcs9-35PwsjjwjtuhMount St. Mary HospitalComment on above: Performed By: #### [id number] ####[facility] (BEAKER)[address] [place], [place] [address]Shixoxl [Mass/Vol]3.4 g/dLLow3.5-5.7UnMount St. Mary Hospital Comment on above:Performed By: #### [id number] ####[facility] ([facility])[address] [place], [place] [address]LWU [Catalytic activity/Vol]114 U/THhzq63-240 Main Campus Medical CenterComment on above:Performed By: #### [id number] ####[facility] (BEAKER)[address] [place], [place] [address]Gfnkw gap [Moles/Vol]9 mmol/LNormal7-20UnMount St. Mary HospitalComment on above:Performed By: #### [id number] ####[facility] (BEAKER)[address] [place], [place] [address]HBY [Catalytic activity/Vol]6 U/INfy09-52MfrxpqpslvMount St. Mary HospitalComment on above:Performed By: #### [id number] ####[facility] (BEAKER)[address] [place], [place] [address]Qaaowmtsc [Mass/Vol]0.5 mg/dLNormal 0.3-1.0UnMount St. Mary HospitalComment on above:Performed By: #### [id number] ####[facility] (BEAKER)[address] [place], [place] [address]Huswhnc [Mass/Vol]8.9 mg/dLNormal8.6-10.3UnMount St. Mary HospitalComment on above:Performed By: #### [id number] ####[facility] (BEAKER)[address] [place], [place] [address]Qszcnegb [Moles/Vol]105 mmol/AEnhnpy47-949VklmzlpqvvMount St. Mary HospitalComment on above:Performed By: #### [id number] ####[facility] ([facility])[address] [place] [address]DI3 [Moles/Vol]30 mmol/LNormal 21-31UnMount St. Mary HospitalComment on above:Performed By: #### [id number] ####[facility] ([facility])[address] [place], [place] [address]Xjxatablrr [Mass/Vol]0.92 mg/dLNormal0.60-1.30UnMount St. Mary HospitalComment on above:Performed By: #### [id number] ####[facility] ([facility])[address] [place], [place] [address]GQAUWLSRNJ FILTRATION RATE ML/MIN/1.73 SQ M.TOTPTLRMJ92.7 mL/min/1.73m*2Normal>60.0UnMount St. Mary HospitalComment on above: Result Comment: [facility]???s estimated glomerular filtration rate (eGFR) [...] potential consequences that do not disproportionately affect anyone group of individuals.Performed By: #### [id number] ####[facility] ([facility])[address] [place], [place] [address]Ojkwkmb [Mass/Vol]83 mg/zNDuyovk39-846WxjcsisrwtMount St. Mary HospitalComment on above:Performed By: #### [id number] ####[facility] ([facility])[address] [place], [place] [address]Bcwwdxumm [Moles/Vol]3.6 mmol/LNormal3.5-5.1UnMount St. Mary HospitalComment on above:Performed By: #### [id number] ####[facility] ([facility])[address] [place] [address] Protein [Mass/Vol]6.4 g/dLNormal6.0-8.3UnMount St. Mary Hospital Comment on above:Performed By: #### [id number] ####[facility] ([facility])[address] [place], [place] [address]Uiuowr [Moles/Vol]140 mmol/MByuxfh552-054RspifoygzlMount St. Mary HospitalComment on above:Performed By: #### [id number] ####[facility] ([facility])[address] [place], [place] [address]Rays nitrogen [Mass/Vol]8 mg/dLNormal7-25UnMount St. Mary HospitalComment on above:Performed By: #### [id number] ####[facility] ([facility])[address] [place] [address] UREA NITROGEN/CREATININE (MASS RATIO) IN SER/PLAS8.7NormalUniversUniversity Hospitals [address] John Medical CenterComment on above:Performed By: #### [id number] ####[facility] ([facility])[address] [place], [place] [address]AWWLWN, SERUMon 43-83-2108EFMLTQ18.5 ug/kTUjbwrt06.0-140.0UnMount St. Mary HospitalComment on above:Result Comment: INTERPRETIVE INFORMATION: Copper, Serum or PlasmaElevated results may [...] was developed and its performance characteristicsdetermined by [employer]. It has not been cleared orapproved by the US Food and Drug Administration. This test wasperformed in a CLIA certified laboratory and is intended forclinical purposes.Performed By: [facility] [place] [address]Gwyzqzisop Director: Calin uCi MD, PhDCLIA Number: [id number] By: #### [id number] ####[facility] [[email or web address] LAB[facility]ORY ([facility])[address] [place], [place] [address]LKOEMJSQfa 81-38-2342IWIDOKOP (NG/ML) IN SER/PLAS25.0 ng/cOOypewx71.0-336.0UnMount St. Mary HospitalComment on above:Performed By: #### [id number] ####[facility] (BEAKER)[address] [place], [place] [address]UWQDLG RBCon 61-99-3738Wflzluprnk (Bld) [Volume fraction]38.4 %Raaula81.0-50.0UnMount St. Mary Hospital Comment on above:Performed By: #### [id number] ####[facility] [[email or web address] LAB[facility]ATORY ([facility])[address] [place], [place] [address]Flhyeodtd By: #### [id number] ####[facility] (AKER)[address] [place], [place] [address]CWA XCUGOV895 ng/mLNormal>=366 [facility] Campus Medical CenterComment on above:Result Comment: Performed By: [employer] [address] [place], [place] [address]Cprmbzjacn Director: Calin Cui MD, PhDCLIA Number: [id number] By: #### [id number] ####[facility] [[email or web address] LAB[facility]ATORY ([facility])[address] [place], [place] [address]Letstkr Poct Glucometerson 87-84-4851Ucabvdt [Mass/Vol]109 mg/dLNoNovant Health Clemmons Medical Center Physician GroupComment on above:Result Comment: Random Glucose Reference Range is dependent on time and content of last meal. Glucose of more than 200 mg/dL in a nonstressed, ambulatory subject supports the diagnosis of Diabetes Mellitus. PERFORMED BY: [place] [id number] PATHOLOGIST DIRECTOR ADULT JUAN DIEGO CAMACHO M.D.Performed By: #### CUU #### [place] [address] USAGlucose [Mass/Vol]90 mg/dLNormCampbellton-Graceville Hospital Physician GroupComment on above:Result Comment: Random Glucose Reference Range is dependent on time and content of last meal. Glucose of more than 200 mg/dL in a nonstressed, ambulatory subject supports the diagnosis of Diabetes Mellitus. PERFORMED BY: [facility] [address] [facility] [place] [address] PATHOLOGIST DIRECTOR ADULT JUAN DIEGO CAMACHO M.D.Performed By: #### CUU #### [facility] [address] [id number] USAIRON AND TIBCon 21-73-7839UDZN (UG/DL) IN SER/PLAS81 ug/dL Qtpcrh04-656AeazygnpqiMount St. Mary HospitalComment on above:Performed By: #### [id number] ####[facility] (BEAKER)[address] [place], [place] [address]JIAC BINDING CAPACITY (UG/DL) IN SER/FFLC861 ug/bVJcbfhq236-863UhgypkdjrmMount St. Mary HospitalComment on above:Performed By: #### [id number] ####[facility] (BEAKER)[address] [place], [place] [address]MKOT BINDING CAPACITY.UNSATURATED (UG/DL) IN SER/BBME323.0 ug/tMKdgycs859.0-355.0UnMount St[address] Mary HospitalComment on above:Performed By: #### [id number] ####[facility] (AKER)[address] [place], [place] [address]JCVX SATURATION (%) IN SER/PLAS26 % Pqtdok38-82XbstenbcagMount St. Mary HospitalComment on above:Performed By: #### [id number] ####[facility] (BEAKER)[address] [place], [place] [address]Bhj on 80-83-1841UwsCltivvBncjtnuvic Aultman HospitalMAGNESIUMon 07-06-2025 Magnesium [Mass/Vol]2.1 mg/dLNormal1.9-2.7UnMount St. Mary Hospital Comment on above:Performed By: #### [id number] ####[facility] (BEAKER)[address] [place], [place] [address]KWPANT (VITAMIN B3)on 06-52-9396LPTAEONQMMIY15 ng/mLNSalem City HospitalComment on above:Result Comment: Serum or PlasmaReporting Limit: 10 ng/mLSynonym(s): Niacinamide; Vitamin [...] use of this test for basal Vitamin S2vhmdwvpiirugu. The supplied reference comment does notreflect normal, endogenous Vitamin B3 concentrations.Analysis by High Performance Liquid Chromatography/Tandem Mass Spectrometry (LC-MS/MS)Performed By: #### [id number] ####[facility] (ANITA)[address] [place], [place] [address]AGTAFJBRD ACIDNone DetNormalUniLancaster Municipal HospitalComment on above:Result Comment: Serum or PlasmaReporting Limit: 10 ng/mLSynonym(s): Niacor(R); Niaspan(R); Slo-Niacin(R);Vitamin D6Iumxtsetq acid occurs naturally in plants and animalsand is also added to many foodsas a vitaminsupplement. Due to the large variability in themetabolism of nicotinic acid, the dosingpreparationused (immediate-release vs. extended-release), and themg doses used, the serum concentrations may range fromless than 10 ng/mL to about [address] ng/mL.After oral administration of an immediate-releasetablet, peak plasma concentrations are achieved in 30to 60 min; after oral administration of anextended-release capsule, peak plasma concentrationsoccur in 4 to 5 hours. The plasma half-life o fnicotinic acid is about 1 hour.In one study, [...] 10 min. for 20 doses (over 3 hours):96223 ng/mLThis test should be considered as a therapeutic drugmonitoring/toxicological test associated with niacin(Vitamin B3) supplementation. Care should be taken inthe use of this test for basal Vitamin M1fbxzfflymkoqp. The supplied reference comment does notreflect normal, endogenous Vitamin B3 concentrations.Analysis by High Performance Liquid Chromatography/Tandem Mass Spectrometry(LC-MS/MS)Performed By: #### [id number] ####[facility] (BEAKER)[address] [place], [place] [address]WFDXDSAYPQD ACIDNone DetNormalUniversity Aultman HospitalComment on above:Result Comment: Serum or PlasmaReporting Limit: 10 ng/mLSynonym(s): Niacin MetaboliteNicotinuric acid is a metabolite of nicotinic acid andnicotinamide. Due to the large variability in themetabolism of nicotinic acid and nicotinamide, plasmaconcentrations of this metabolite also are variable.In one study it was reported that the administrationof a single 1000 mg extended- release tablet ofnicotinic acid resulted in a mean peak nicotinuricacid concentration of over 1000 ng/mL within 2 hourspost dose, decreasing to less than 200 ng/mL by 6hours and less than 50 ng/mL by 12 hours post dose.The adm inistration of multiple oral doses of nicotinicacid (for a total of 2000 mg) resulted in thefollowing mean peak nicotinuric acid plasmaconcentrations:25 mg every 10 min. for 80 doses (over 13 hours):950ng/mL50 mg every 10 min. for 40 doses (over 6.5 hours):2300 ng/mL100 mg every 10 min. for 20 doses (over 3 hours): 5100ng/mLThis test should be considered as a therapeutic drugmonitoring/toxicological test associated with niacin(Vitamin B3) supplementation. Care should be taken inthe use of thistest for basal Vitamin L6gpmalqtlwagxf. The supplied reference comment does notreflect normal, endog enous Vitamin B3 concentrations.Analysis by High Performance Liquid Chromatography/Tandem Mass Spectrometry (LC-MS/MS)This test was developed and its performancecharacteristics determined by [facility]. It has notbeen cleared or approved by the US Food and DrugAdministration.Digital data review may have taken place remotely byqualified [facility] staff utilizing a secure VPN connectionfor some or all of the reported results. This is inaccordance with and follows CLIA regulations.Testing performed at [facility] [employer] [place] [phone] Poon, PhD, F-ABFT, [facility], LaboratoryDirectorCLIA [id number] By: #### [id number] ####[facility] (BEAKER)[address] [place], [place] [address]RBFWRZLFYHdi 40-36-9786Zgfzfzmmq [Mass/Vol]1.8 mg/dL Low2.5-5.0UnMount St. Mary HospitalComment on above:Performed By: #### [id number] ####[facility] (BEAKER)[address] [place], [place] [address]VTUzn 59-60-4066XRJZMEELCDD (MIU/L) IN SER/PLAS BY DETECTION LIMIT <= 0.05 MIU/L1.59 mIU/LNormal0.34-5.60UnMount St. Mary HospitalComment on above: Performed By: #### [id number] ####[facility] (BEAKER)[address] [place], [place] [address]FINUBTL Aon 87-33-9943GPBBIZO A (RETINOL)0.46 mg/LNormal 0.30-1.20UnMount St. Mary HospitalComment on above:Performed By: #### [id number] ####[facility] [[email or web address]] LABORATORY ([facility])[address] [place] [address] VITAMIN A (RETINYL PALMITATE)<0.09Whthgg9.00-0.10UnMount St. Mary HospitalComment on above:Performed By: #### [id number] ####[facility] [[email or web address] LABORATORY ([facility])[address] [place], [place] [address]OYTPSMR A, SER/TYSHAWN - INTERPRETATIONNormal NormalUnMount St. Mary HospitalComment on above:Result Comment: This test was developed and its performance characteristicsdetermined by [employer] Edward larson. It has not been cleared orapproved by the US Food and Drug Administration. This test wasperformed in a CLIA certified laboratory and is intended forclinical purposes.Performed By: [facility] [place], [place] [address]Rsleamzvkm Director: Calin Cui MD, PhDCLIA Number: [id number] By: #### [id number] ####[facility] [[email or web address] LABORATORY ([facility])[address] [place], [place] [address]UZGZGHH B1on 00-15-4845RZVHBTK B1, PLASMA5 nmol/L Normal4-15UnMount St. Mary HospitalComment on above:Result Comment: INTERPRETIVE DATA: Vitamin B1, PlasmaThiamine (vitamin B1) is reported. However, thiamine diphosphate(TDP), the biologically active form of thiamine, is not found inmeasurable concentrations in plasma, and is best determined inwhole blood specimens. Plasma thiamine concentration reflectsrecent intake rather than body stores.This test was developed and its performance characteristic sdetermined by [facility]. It has not been cleared orapproved by the [place] Food and Drug Administration. This test wasperformed in a CLIA certified laboratory and is intended forclinical purposes.Performed By: [facility] [place] [address]Lorgcgxlqs Director: Calin Cui MD, PhDCLIA Number: [id number] By: #### [id number] ####[facility] [[email or web address] LABORATORY ([facility])[address], [place] [address]ZQWSUHM B12on 80-06-8208Jhreisapc (Vitamin B12) [Mass/Vol]487 pg/xGIdzffy620-840YzmaqkroqiMount St. Mary HospitalComment on above:Result Comment: REFERENCE RANGES:180-914 pg/mL Fsepjt073-195 pg/mL Indeterminate<145 pg/mL DeficientPerformed By: #### [id number] ####[facility] (BEAKER)[address] [place], [place] [address]SCXJNGP B2 on 17-38-7436TPSPJUG B212 nmol/LNormal5-50UnMount St. Mary Hospital Comment on above:Result Comment: INTERPRETIVE INFORMATION: Vitamin B2, PlasmaThis test was developed and its performance characteristicsdetermined by [employer]. It has not been cleared orapproved by the US Food and Drug Administration. This test wasperformed in a CLIA certified laboratory and is intended forclinical purposes.Performed By: [facility] [place] [address]Edgbetkfyv Director: Calin Cui MD, PhDCLIA Number: [id number] By: #### [id number] ####[facility] [[email or web address]] LABORATORY ([facility])[address] [place], [place] [address]OVTJKBP B6on 86-07-5648GTMXUDC B6<5.0Low20.0-125.0 [facility] CenterComment on above:Result Comment: INTERPRETIVE INFORMATION: Vitamin B6 (Pyridoxal 5-Phosphate)Pyridoxal 5'-phosphate measured in a specimen collected followingan 8-hour or overnight fast accurately indicates vitamin G3llshdbkjxbh status. Non-fasting specimen concentration reflectsrecent vitamin intake.This test was developed and its performance characteristicsdetermined by [employer]. It has not been cleared orapproved by the US Food and Drug Administration. This test wasperformed in a CLIA certified laboratory and is intended forclinical purposes.Performed By: [facility] [place], [place] [address]Vpbpyuqmkt Director: Calin Cui MD, PhDCLIA Number: [id number] By: #### [id number] ####[facility] [[email or web address]] LAB[facility]ATORY ([facility])[address] [place], [place] [address]OOVBSTK D 25 HYDROXYon 43-66-8078MNZGGKMYS (25 [place] VITAMIN D3) (NG/ML) IN SER/PLAS12.8 ng/mL Low30.0-80.0UnMount St. Mary HospitalComment on above:Result Comment: >80.0 Toxicity possiblePerformed By: #### [id number] ####[facility] (BEAKER)[address] [place], [place] [address]PVJXcu 07-22-1218CCVY06.9 ug/dLNormal 60.0-120.0UnMount St. Mary HospitalComment on above:Result Comment: INTERPRETIVE INFORMATION: Zinc, Serum or PlasmaElevated results may [...] was developed and its performance characteristicsdetermined by [employer]. It has not been cleared orapproved by the US Food and Drug Administration. This test wasperformed in a CLIA certified laboratory and is intended forclinical purposes.Performed By: [facility] [place], [place] [address]Tpgzrpmoea Director: Calin Cui MD, PhDCLIA Number: [id number] By: #### [id number] ####[facility] [[email or web address]] LABORATORY ([facility])[address], [place] [address]Khqzcds Poct Glucometerson 63-84-6644Wgxgstl [Mass/Vol]109 mg/dLNoNovant Health Clemmons Medical Center Physician GroupComment on above:Result Comment: Random Glucose Reference Range is dependent on time and content of last meal. Glucose of more than 200 mg/dL in a nonstressed, ambulatory subject supports the diagnosis of Diabetes Mellitus. PERFORMED BY: [place] [address] PATHOLOGIST DIRECTOR ADULT JUAN DIEGO CAMACHO M.D.Performed By: #### CUU #### [place] [address] USAGlucose [Mass/Vol]103 mg/dLNoNovant Health Clemmons [facility] Center Physician GroupComment on above:Result Comment: Random Glucose Reference Range is dependent on time and content of last meal. Glucose of more than 200 mg/dL in a nonstressed, ambulatory subject supports the diagnosis of Diabetes Mellitus. PERFORMED BY: [place] [address] PATHOLOGIST DIRECTOR ADULT JUAN DIEGO CAMACHO M.D.Performed By: #### LIPID, CMP, PSAS, TSH3, CBC #### [place] [id number] USAGlucose Poct Glucometerson 45-42-0617Vbpdyrz [Mass/Vol]103 mg/dLNoNovant Health Clemmons Medical Center Physician GroupComment on above:Result Comment: Random Glucose Reference Range is dependent on time and content of last meal. Glucose of more than 200 mg/dL in a nonstressed, ambulatory subject supports the diagnosis of Diabetes Mellitus. PERFORMED BY: [place] [address] PATHOLOGIST DIRECTOR ADULT JUAN DIEGO CAMACHO M.D.Performed By: #### LIPID, CMP, PSAS, TSH3, CBC #### [place] [id number] USAGlucose [Mass/Vol]88 mg/dLNoNovant Health Clemmons [facility] Center Physician GroupComment on above:Result Comment: Random Glucose Reference Range is dependent on time and content of last meal. Glucose of more than 200 mg/dL in a nonstressed, ambulatory subject supports the diagnosis of Diabetes Mellitus. PERFORMED BY: [place] [address] PATHOLOGIST DIRECTOR ADULT JUAN DIEGO CAMACHO M.D.Performed By: #### CUU #### [place] [address] USABasic Metabolic Panelon 65-58-8946Cyfoc gap [Moles/Vol]8.9 mmol/LNormal6.0-15.0The [facility] Physician GroupComment on above:Performed By: #### CUU #### [place] [address] USACalcium [Mass/Vol]8.7 mg/dLNormal8.6-10.3The [facility] Physician GroupComment on above:Performed By: #### CUU #### [place] [address] USAChloride [Moles/Vol]107 mmol/MDghone11-708Zrj [facility] Physician GroupComment on above:Performed By: #### CUU #### [place] [address] USACO2 [Moles/Vol]28.9 mmol/VArrfrr35.0-31.0The [facility] Physician GroupComment on above:Performed By: #### CUU #### [place] [address] USACreatinine [Mass/Vol]0.83 mg/dLNormal0.70-1.30The [facility] Physician GroupComment on above:Performed By: #### CUU #### [place] [address] USACreatinine Clr Calc Kcrytazc802.65NormalThe [facility] Physician GroupComment on above:Result Comment: PERFORMED BY: [place] [address] PATHOLOGIST DIRECTOR ADULT JUAN DIEGO CAMACHO M.D.Performed By: #### CUU #### [place] [address] USAGFR/1.73 sq M.predicted MDRD (S/P/Bld) [Vol rate/Area] mL/min/{1.73_m2}NormalThe [facility] Physician GroupComment on above:Performed By: #### CUU #### [place] [address] USAGlucose [Mass/Vol]82 mg/jMBsyjtu90-321Ghj [facility] Physician GroupComment on above:Result Comment: Random Glucose Reference Range is dependent on time and content of last meal. Glucose of more than 200 mg/dL in a nonstressed, ambulatory subject supports the diagnosis of Diabetes Mellitus. ADA recommended reference rangePerformed By: #### [facility] #### [place] [address] USAPotassium [Moles/Vol]3.8 mmol/LNormal3.5-5.1The [facility] Physician GroupComment on above:Result Comment: Hemolysis is present at a level that could interfere with the result. Contact lab if redraw is requiredPerformed By: #### [facility] #### [place] [address] USASodium [Moles/Vol]141 mmol/CMlunvc843-139Dsf [facility] Physician GroupComment on above:Performed By: #### [facility] #### [place] [address] USAUrea nitrogen [Mass/Vol]7 mg/dLNormal7-25The [facility] Physician GroupComment on above:Performed By: #### [facility] #### [place] [address] USAComplete Blood Count Auto Diffon [id number] (Bld) [#/Vol]0.0 10*3/uLNormal0.0-0.2The [facility] Physician GroupComment on above: Result Comment: PERFORMED BY: [place] [address] PATHOLOGIST DIRECTOR ADULT JUAN DIEGO CAMACHO M.D.Performed By: #### [facility] #### [place] [address] USABasophils/100 WBC (Bld)0.5 %Normal.The [facility] Physician GroupComment on above:Performed By: #### [facility] #### [place] [address] USAEosinophils (Bld) [#/Vol]0.1 10*3/uLNormal0.0-0.45The [facility] Physician GroupComment on above:Performed By: #### [facility] #### [place] [address] USAEosinophils/100 WBC (Bld)4.0 %Normal.The [facility] Physician GroupComment on above:Performed By: #### [facility] #### [place] [address] USAErythrocyte distribution width (RBC) [Ratio]16.4 %High 12.0-14.8The [facility] Physician GroupComment on above:Performed By: #### [facility] #### [place] [address] USAHematocrit (Bld) [Volume fraction]32.9 %Low38.8-50.0The [facility] Physician GroupComment on above:Performed By: #### [facility] #### [place] [address] USAHemoglobin (Bld) [Mass/Vol]10.8 g/dLLow13.0-17.0The [facility] Physician GroupComment on above:Performed By: #### [facility] #### [place] [address] USALymphocytes (Bld) [#/Vol]1.0 10*3/uLNormal1.00-4.8The [facility] Physician GroupComment on above:Performed By: #### [facility] #### [place] [address] USALymphocytes/100 WBC (Bld)29.9 %Normal.The [facility] Physician GroupComment on above:Performed By: #### [facility] #### [place] [address] USAMCH (RBC) [Entitic mass]29.2 dtKqnvkn09.5-35.2The [facility] Physician GroupComment on above:Performed By: #### [facility] #### [address] (RBC) [Entitic vol]89.0 gRHqlgax73.5-101The [facility] Physician GroupComment on above:Performed By: #### [facility] #### [place] [address] USAMean Corpuscular HGB Conc32.8 g/dGFuitsx40.5-35.6The [facility] Physician GroupComment on above:Performed By: #### [facility] #### [place] [address] USAMonocytes (Bld) [#/Vol]0.5 10*3/uLNormal0.0-0.8The [facility] Physician GroupComment on above:Performed By: #### [facility] #### [place] [address] USAMonocytes/100 WBC (Bld)14.4 %Normal.The [facility] Physician GroupComment on above:Performed By: #### [facility] #### [place] [address] USANeutrophils (Bld) [#/Vol]1.7 10*3/uLLow1.8-7.7The [facility] Physician GroupComment on above:Performed By: #### [facility] #### [place] [address] USANeutrophils/100 WBC (Bld)51.2 %Normal.The [facility] Physician GroupComment on above:Performed By: #### [facility] #### [place] [address] USANRBC%0.1 /100{WBC}Normal0-0.5The [facility] Group Comment on above:Performed By: #### [facility] #### [place] [address] USAPlatelet mean volume (Bld) [Entitic vol]10.8 fLHigh 6.6-10.1The [facility] Physician GroupComment on above:Performed By: #### [facility] #### [place] [address] USAPlatelets (Bld) [#/Vol]129 10*3/eAHut803-824Fud [facility] Physician GroupComment on above:Performed By: #### [facility] #### [place] [address] USARBC (Bld) [#/Vol]3.69 10*6/uLLow3.90-5.60The [facility] Physician GroupComment on above:Performed By: #### [facility] #### [place] [address] USAWBC (Bld) [#/Vol]3.4 10*3/uLLow4.1-10.5The [facility] Physician GroupComment on above:Performed By: #### [facility] #### [place] [address] USAWhite Blood Count3.4 [CFU]/mLLow4.1-10.5The [facility] Physician GroupComment on above:Performed By: #### [facility] #### [place] [address] USAGlucose Poct Glucometerson 02-60-6972Slyxwif [Mass/Vol]103 mg/dLNoNovant Health [facility] Physician GroupComment on above:Result Comment: Random Glucose Reference Range is dependent on time and content of last meal. Glucose of more than 200 mg/dL in a nonstressed, ambulatory subject supports the diagnosis of Diabetes Mellitus. PERFORMED BY: [place] [address] PATHOLOGIST DIRECTOR ADULT JUAN DIEGO CAMACHO M.D.Performed By: #### [facility] #### [place] [address] USAGlucose [Mass/Vol]90 mg/dLNormCampbellton-Graceville Hospital Physician GroupComment on above:Result Comment: Random Glucose Reference Range is dependent on time and content of last meal. Glucose of more than 200 mg/dL in a nonstressed, ambulatory subject supports the diagnosis of Diabetes Mellitus. PERFORMED BY: [place] [address] PATHOLOGIST DIRECTOR ADULT JUAN DIEGO CAMACHO M.D.Performed By: #### [facility] #### [place] [address] USAGlucose [Mass/Vol]91 mg/dLNoNovant Health [facility] Physician GroupComment on above:Result Comment: Random Glucose Reference Range is dependent on time and content of last meal. Glucose of more than 200 mg/dL in a nonstressed, ambulatory subject supports the diagnosis of Diabetes Mellitus. PERFORMED BY: [place] [address] PATHOLOGIST DIRECTOR ADULT JUAN DIEGO CAMACHO M.D.Performed By: #### [facility] #### [place] [address] USAGlucose Poct Glucometerson 13-28-5428Dexmbqy [Mass/Vol]106 mg/dLNormCampbellton-Graceville Hospital Physician GroupComment on above:Result Comment: Random Glucose Reference Range is dependent on time and content of last meal. Glucose of more than 200 mg/dL in a nonstressed, ambulatory subject supports the diagnosis of Diabetes Mellitus. PERFORMED BY: [place] [address] PATHOLOGIST DIRECTOR ADULT JUAN DIEGO CAMACHO M.D.Performed By: #### LIPID, CMP, PSAS, TSH3, CBC #### [place] [address] USAGlucose [Mass/Vol]99 mg/dLNoNovant Health [facility] Physician GroupComment on above:Result Comment: Random Glucose Reference Range is dependent on time and content of last meal. Glucose of more than 200 mg/dL in a nonstressed, ambulatory subject supports the diagnosis of Diabetes Mellitus. PERFORMED BY: [place] [id number] PATHOLOGIST DIRECTOR ADULT JUAN DIEGO CAMACHO M.D.Performed By: #### LIPID, CMP, PSAS, TSH3, CBC #### [place] [address] USAGlucose [Mass/Vol]113 mg/dLHeritage Hospital Physician GroupComment on above:Result Comment: Random Glucose Reference Range is dependent on time and content of last meal. Glucose of more than 200 mg/dL in a nonstressed, ambulatory subject supports the diagnosis of Diabetes Mellitus. PERFORMED BY: [place] [address] PATHOLOGIST DIRECTOR ADULT JUAN DIEGO CAMACHO M.D.Performed By: #### LIPID, CMP, PSAS, TSH3, CBC #### [place] [address] [id number]: Cleaned MeterNoNovant Health [facility] Physician GroupComment on above:Result Comment: PERFORMED BY: [place] [address] PATHOLOGIST DIRECTOR ADULT JUAN DIEGO CAMACHO M.D.Performed By: #### [facility] #### [place] [address] USAGlucose [Mass/Vol]92 mg/dLNoNovant Health [facility] Physician GroupComment on above:Result Comment: Random Glucose Reference Range is dependent on time and content of last meal. Glucose of more than 200 mg/dL in a nonstressed, ambulatory subject supports the diagnosis of Diabetes Mellitus.Performed By: #### [facility] #### [place] [address] USAGlucose Poct Glucometerson 05-20-8960Kyruuax [Mass/Vol]133 mg/dLHeritage Hospital Physician GroupComment on above:Result Comment: Random Glucose Reference Range is dependent on time and content of last meal. Glucose of more than 200 mg/dL in a nonstressed, ambulatory subject supports the diagnosis of Diabetes Mellitus. PERFORMED BY: [place] [address] PATHOLOGIST DIRECTOR ADULT JUAN DIEGO CAMACHO M.D.Performed By: #### LIPID, CMP, PSAS, TSH3, CBC #### [address] [address] [id number]: Cleaned MeterNormCampbellton-Graceville Hospital Physician GroupComment on above:Result Comment: PERFORMED BY: [place] [address] PATHOLOGIST DIRECTOR ADULT JUAN DIEGO CAMACHO M.D.Performed By: #### LIPID, CMP, PSAS, TSH3, CBC #### [place] [address] USAGlucose [Mass/Vol]94 mg/dLNormCampbellton-Graceville [facility] Physician GroupComment on above:Result Comment: Random Glucose Reference Range is dependent on time and content of last meal. Glucose of more than 200 mg/dL in a nonstressed, ambulatory subject supports the diagnosis of Diabetes Mellitus.Performed By: #### LIPID, CMP, PSAS, TSH3, CBC #### [place] [address] [id number]: Cleaned MeterNormCampbellton-Graceville Hospital Physician GroupComment on above:Result Comment: PERFORMED BY: [place] [address] PATHOLOGIST DIRECTOR ADULT JUAN DIEGO CAMACHO M.D.Performed By: #### [facility] #### [place] [address] USAGlucose [Mass/Vol]97 mg/dLNormCampbellton-Grace[facility] Physician GroupComment on above:Result Comment: Random Glucose Reference Range is dependent on time and content of last meal. Glucose of more than 200 mg/dL in a nonstressed, ambulatory subject supports the diagnosis of Diabetes Mellitus.Performed By: #### [facility] #### [place] [address] [id number]: Cleaned MeterNormCampbellton-Graceville Hospital Physician GroupComment on above:Result Comment: PERFORMED BY: [place] [address] PATHOLOGIST DIRECTOR ADULT JUAN DIEGO CAMACHO M.D.Performed By: #### [facility] #### [place] [address] USAGlucose [Mass/Vol]90 mg/dLHeritage Hospital Physician GroupComment on above:Result Comment: Random Glucose Reference Range is dependent on time and content of last meal. Glucose of more than 200 mg/dL in a nonstressed, ambulatory subject supports the diagnosis of Diabetes Mellitus.Performed By: #### CUU #### [place] [address] USAGlucose [Mass/Vol]76 mg/dLNoNov[facility] Health [facility] Physician GroupComment on above:Result Comment: Random Glucose Reference Range is dependent on time and content of last meal. Glucose of more than 200 mg/dL in a nonstressed, ambulatory subject supports the diagnosis of Diabetes Mellitus. PERFORMED BY: [place] [address] PATHOLOGIST DIRECTOR ADULT JUAN DIEGO CAMACHO M.D.Performed By: #### LIPID, CMP, PSAS, TSH3, CBC #### [place] [address] USAGlucose Poct Glucometerson 54-56-5408Hxnglcw8Zxw2: Cleaned MeterNoNovant Health [facility] Physician [facility] HospitalComment on above:Result Comment: PERFORMED BY: [place] [address] PATHOLOGIST DIRECTOR ADULT JUAN DIEGO CAMACHO M.D.Performed By: #### LIPID, CMP, PSAS, TSH3, CBC #### [place] [address] USAGlucose [Mass/Vol]136 mg/dLHeritage Hospital Physician GroupComment on above:Result Comment: Random Glucose Reference Range is dependent on time and content of last meal. Glucose of more than 200 mg/dL in a nonstressed, ambulatory subject supports the diagnosis of Diabetes Mellitus.Performed By: #### LIPID, CMP, PSAS, TSH3, CBC #### [place] [address] USAGlucose [Mass/Vol]100 mg/dLHeritage Hospital Physician GroupComment on above:Result Comment: Random Glucose Reference Range is dependent on time and content of last meal. Glucose of more than 200 mg/dL in a nonstressed, ambulatory subject supports the diagnosis of Diabetes Mellitus. PERFORMED BY: [place] [address] PATHOLOGIST DIRECTOR ADULT JUAN DIEGO CAMACHO M.D.Performed By: #### LIPID, CMP, PSAS, TSH3, CBC #### [place] [address] [id number]: Cleaned MeterNoNovant Health [facility] Physician GroupComment on above:Result Comment: PERFORMED BY: [place] [address] PATHOLOGIST DIRECTOR ADULT JUAN DIEGO CAMACHO M.D.Performed By: #### LIPID, CMP, PSAS, TSH3, CBC #### [place] [address] USAGlucose [Mass/Vol]100 mg/dLNoNovant Health [facility] Physician GroupComment on above:Result Comment: Random Glucose Reference Range is dependent on time and content of last meal. Glucose of more than 200 mg/dL in a nonstressed, ambulatory subject supports the diagnosis of Diabetes Mellitus.Performed By: #### LIPID, CMP, PSAS, TSH3, CBC #### [place] [address] [id number]: Cleaned MeterNoNovant Health [facility] Physician GroupComment on above:Result Comment: PERFORMED BY: [place] [address] PATHOLOGIST DIRECTOR ADULT JUAN DIEGO CAMACHO M.D.Performed By: #### LIPID, CMP, PSAS, TSH3, CBC #### [place] [address] USAGlucose [Mass/Vol]79 mg/dLNoNovant Health [facility] Physician GroupComment on above:Result Comment: Random Glucose Reference Range is dependent on time and content of last meal. Glucose of more than 200 mg/dL in a nonstressed, ambulatory subject supports the diagnosis of Diabetes Mellitus.Performed By: #### LIPID, CMP, PSAS, TSH3, CBC #### [place] [address] USAComplete Blood Count Auto Diffon [id number] (Bld) [#/Vol]0.0 10*3/uLNormal0.0-0.2The [facility] Physician GroupComment on above: Result Comment: PERFORMED BY: [place] [address] PATHOLOGIST DIRECTOR ADULT JUAN DIEGO CAMACHO M.D.Performed By: #### A1C WTH eA #### [place] [address] USABasophils/100 WBC (Bld)0.7 %Normal.The [facility] Physician GroupComment on above:Performed By: #### A1C WTH eA #### [place] [address] USAEosinophils (Bld) [#/Vol]0.2 10*3/uLNormal0.0-0.45The [facility] Physician GroupComment on above:Performed By: #### A1C WTH eA #### [place] [address] USAEosinophils/100 WBC (Bld)5.2 %Normal.The [facility] Physician GroupComment on above:Performed By: #### A1C WTH eA #### [place] [address] USAErythrocyte distribution width (RBC) [Ratio]16.0 %High 12.0-14.8The [facility] Physician GroupComment on above:Performed By: #### A1C WTH eA #### [place] [address] USAHematocrit (Bld) [Volume fraction]30.4 %Low38.8-50.0The [facility] Physician GroupComment on above:Performed By: #### A1C WTH eA #### [place] [address] USAHemoglobin (Bld) [Mass/Vol]10.1 g/dLLow13.0-17.0The [facility] Physician GroupComment on above:Performed By: #### A1C WTH eA #### [place] [address] USALymphocytes (Bld) [#/Vol]1.0 10*3/uLNormal1.00-4.8The [facility] Physician GroupComment on above:Performed By: #### A1C WTH eA #### [place] [address] USALymphocytes/100 WBC (Bld)31.6 %Normal.The [facility] Physician GroupComment on above:Performed By: #### A1C WTH eA #### [place] [address] USAH (RBC) [Entitic mass]29.3 fmAtiwru18.5-35.2The [facility] Physician GroupComment on above:Performed By: #### A1C WTH eA #### [place] [address] USAV (RBC) [Entitic vol]88.1 aXSeripi46.5-101The [facility] Physician GroupComment on above:Performed By: #### A1C WTH eA #### [place] [address] USAMean Corpuscular HGB Conc33.2 g/yJXulacc66.5-35.6The [facility] Physician GroupComment on above:Performed By: #### A1C WTH eA #### [place] [address] USAMonocytes (Bld) [#/Vol]0.5 10*3/uLNormal0.0-0.8The [facility] Physician GroupComment on above:Performed By: #### A1C WTH eA #### [place] [address] USAMonocytes/100 WBC (Bld)16.1 %Normal.The [facility] Physician GroupComment on above:Performed By: #### A1C WTH eA #### [place] [address] USANeutrophils (Bld) [#/Vol]1.5 10*3/uLLow1.8-7.7The [facility] Physician GroupComment on above:Performed By: #### A1C WTH eA #### [facility] [address] [place] [address] USANeutrophils/100 WBC (Bld)46.4 %Normal.The [facility] Physician GroupComment on above:Performed By: #### A1C WTH eA #### [facility] [address] [place] [address] USANRBC%0.4 /100{WBC}Normal0-0.5The [facility] Physician Group Comment on above:Performed By: #### A1C WTH eA #### [place] [address] USAPlatelet mean volume (Bld) [Entitic vol]10.8 fLHigh 6.6-10.1The [facility] Physician GroupComment on above:Performed By: #### A1C WTH eA #### [place] [address] USAPlatelets (Bld) [#/Vol]197 10*3/lKThirvs311-932Brw [facility] Physician GroupComment on above:Performed By: #### A1C WTH eA #### [place] [address] USARBC (Bld) [#/Vol]3.45 10*6/uLLow3.90-5.60The [facility] Physician GroupComment on above:Performed By: #### A1C WTH eA #### [place] [address] USAWBC (Bld) [#/Vol]3.1 10*3/uLLow4.1-10.5The [facility] Physician GroupComment on above:Performed By: #### A1C WTH eA #### [place] [address] USAWhite Blood Count3.1 [CFU]/mLLow4.1-10.5The [facility] Physician GroupComment on above:Performed By: #### A1C WTH eA #### [facility] [address] [place] [id number] USAComprehensive Metabolic Panelon 47-94-1275Yfadbel [Mass/Vol]3.0 g/dLLow3.5-5.7The [facility] Physician GroupComment on above: Performed By: #### A1C WTH eA #### [facility] [address] [place] [address] USAAlbumin/Globulin [Mass ratio]1.1 {ratio}NormalThe [facility] Physician GroupComment on above:Performed By: #### A1C WTH eA #### [place] [address] USAALP [Catalytic activity/Vol]103 U/LPkqfnm42-026Dve [facility] Physician GroupComment on above:Performed By: #### A1C WTH eA #### [facility] [address] [place] [id number] USAALT [Catalytic activity/Vol]U/LLow7-52The [facility] Physician GroupComment on above:Performed By: #### A1C WTH eA #### [place] [address] USAAnion gap [Moles/Vol]9.9 mmol/LNormal6.0-15.0The [facility] Physician GroupComment on above:Performed By: #### A1C WTH eA #### [place] [address] USAAST [Catalytic activity/Vol]7 U/EDzt07-78Yya [facility] Physician GroupComment on above:Performed By: #### A1C WTH eA #### [place] [address] USABilirubin [Mass/Vol]0.4 mg/dLNormal0.3-1.0The [facility] Physician GroupComment on above:Performed By: #### A1C WTH eA #### [place] [address] USACalcium [Mass/Vol]8.8 mg/dLNormal8.6-10.3The [facility] Physician GroupComment on above:Performed By: #### A1C WTH eA #### [facility] [address] [place] [address] USAChloride [Moles/Vol]106 mmol/QYhpnjh28-545Woq [facility] Physician GroupComment on above:Performed By: #### A1C WTH eA #### [facility] [address] [place] [address] USACO2 [Moles/Vol]28.8 mmol/JZyhfqc84.0-31.0The [facility] Physician GroupComment on above:Performed By: #### A1C WTH eA #### [facility] [address] [place] [address] USACreatinine [Mass/Vol]0.92 mg/dLNormal0.70-1.30The [facility] Physician GroupComment on above:Performed By: #### A1C WTH eA #### [facility] [address] [place] [address] USACreatinine Clr Calc Hwscmpvy94.36NormCampbellton-Graceville Hospital Physician GroupComment on above:Performed By: #### A1C WTH eA #### [facility] [address] [place] [address] USAGFR/1.73 sq M.predicted MDRD (S/P/Bld) [Vol rate/Area] mL/min/{1.73_m2}NormalThe [facility] Physician GroupComment on above:Performed By: #### A1C WTH eA #### [facility] [address] [place] [address] USAGlobulin (S) [Mass/Vol]2.7 g/dLNormSt. Mary's Medical Centere [facility] Physician GroupComment on above:Performed By: #### A1C WTH eA #### [facility] [address] [place] [address] USAGlucose [Mass/Vol]101 mg/kHPhek23-015Ykj [facility] Physician GroupComment on above:Result Comment: Random Glucose Reference Range is dependent on time and content of last meal. Glucose of more than 200 mg/dL in a nonstressed, ambulatory subject supports the diagnosis of Diabetes Mellitus. ADA recommended reference rangePerformed By: #### A1C WTH eA #### [address] [address] USAPotassium [Moles/Vol]3.7 mmol/LNormal3.5-5.1The [facility] Physician GroupComment on above:Performed By: #### A1C WTH eA #### [place] [id number] USAProtein [Mass/Vol]5.7 g/dLLow6.4-8.9The [facility] Physician GroupComment on above:Performed By: #### A1C WTH eA #### [place] [address] USASodium [Moles/Vol]141 mmol/ZTqyqvd988-072Qse [facility] Physician GroupComment on above:Performed By: #### A1C WTH eA #### [place] [address] USAUrea nitrogen [Mass/Vol]13 mg/dLNormal7-25The [facility] Physician GroupComment on above:Performed By: #### A1C WTH eA #### [place] [address] USAGlucose Poct Glucometerson 33-44-9846Pqcpcep6Jys3: Cleaned MeterNoNovant Health [facility] Physician [facility] HospitalComment on above:Result Comment: PERFORMED BY: [place] [address] PATHOLOGIST DIRECTOR ADULT JUAN DIEGO CAMACHO M.D.Performed By: #### CUU #### [place] [address] USAGlucose [Mass/Vol]110 mg/dLNoNovant Health [facility] Physician GroupComment on above:Result Comment: Random Glucose Reference Range is dependent on time and content of last meal. Glucose of more than 200 mg/dL in a nonstressed, ambulatory subject supports the diagnosis of Diabetes Mellitus.Performed By: #### CUU #### [place] [address] USAGlucose [Mass/Vol]98 mg/dLHeritage Hospital Physician GroupComment on above:Result Comment: Random Glucose Reference Range is dependent on time and content of last meal. Glucose of more than 200 mg/dL in a nonstressed, ambulatory subject supports the diagnosis of Diabetes Mellitus. PERFORMED BY: [place] [address] PATHOLOGIST DIRECTOR ADULT JUAN DIEGO CAMACHO M.D.Performed By: #### LIPID, CMP, PSAS, TSH3, CBC #### [place] [address] USAGlucose [Mass/Vol]123 mg/dLNoNovant Health [facility] Physician GroupComment on above:Result Comment: Random Glucose Reference Range is dependent on time and content of last meal. Glucose of more than 200 mg/dL in a nonstressed, ambulatory subject supports the diagnosis of Diabetes Mellitus. PERFORMED BY: [place] [address] PATHOLOGIST DIRECTOR ADULT JUAN DIEGO CAMACHO M.D.Performed By: #### CUU #### [place] [address] USAGlucose [Mass/Vol]105 mg/dLNoNovant Health [facility] Physician GroupComment on above:Result Comment: Random Glucose Reference Range is dependent on time and content of last meal. Glucose of more than 200 mg/dL in a nonstressed, ambulatory subject supports the diagnosis of Diabetes Mellitus. PERFORMED BY: [place] [address] PATHOLOGIST DIRECTOR ADULT JUAN DIEGO CAMACHO M.D.Performed By: #### LIPID, CMP, PSAS, TSH3, CBC #### [place] [address] USAPrealbuminon 41-48-4154Kcyywoskmt [Mass/Vol]9.7 mg/dLLow 17.0-34.0The [facility] Physician GroupComment on above:Result Comment: PERFORMED BY: [place] [address] PATHOLOGIST DIRECTOR ADULT JUAN DIEGO CAMACHO M.D.Performed By: #### A1C WTH eA #### [place] [address] USABASIC METABOLIC PANELon 50-54-2785Chfnq gap [Moles/Vol]7 mmol/LNormal7-20UnMount St. Mary HospitalComment on above:Performed By: #### [id number] ####[facility] ([facility])[address] [place] [address] Calcium [Mass/Vol]8.5 mg/dLLow8.6-10.3UnMount St. Mary HospitalComment on above:Performed By: #### [id number] ####[facility] ([facility])[address] [place], [place] [address]Eocruwws [Moles/Vol]107 mmol/NXxzbso60-405RkfgymzwdgMount St. Mary HospitalComment on above:Performed By: #### [id number] ####[facility] ([facility])[address] [place] [address]UP6 [Moles/Vol]28 mmol/LNormal 21-31UnMount St. Mary HospitalComment on above:Performed By: #### [id number] ####[facility] ([facility])[address] [place], [place] [address]Tnefrkzywd [Mass/Vol]0.79 mg/dLNormal0.60-1.30UnMount St. Mary HospitalComment on above:Performed By: #### [id number] ####[facility] ([facility])[address] [place], [place] [address]POMQELSXZR FILTRATION RATE ML/MIN/1.73 SQ M.PJUZYDIFR25.4 mL/min/1.73m*2Normal>60.0UnMount St. Mary HospitalComment on above: Result Comment: [facility]???s estimated glomerular filtration rate (eGFR) [...] potential consequences that do not disproportionately affect anyone group of individuals.Performed By: #### [id number] ####[facility] ([facility])[address] [place], [place] [address]Nejgwai [Mass/Vol]90 mg/fSHipltb13-124QackzmzznbMount St. Mary HospitalComment on above:Performed By: #### [id number] ####[facility] ([facility])[address] [place], [place] [address]Ccscsqevp [Moles/Vol]3.3 mmol/LLow3.5-5.1UnMount St. Mary HospitalComment on above:Performed By: #### [id number] ####[facility] ([facility])[address] [place] [address] Sodium [Moles/Vol]139 mmol/ZBqbbvi840-649BeqdnvwxvoMount St. Mary Hospital Comment on above:Performed By: #### [id number] ####[facility] ([facility])[address] [place], [place] [address]Qivh nitrogen [Mass/Vol]19 mg/dLNormal7-25 [facility] CenterComment on above:Performed By: #### [id number] ####[facility] ([facility])[address] [place], [place] [address]RYDO NITROGEN/CREATININE (MASS RATIO) IN SER/PLAS24.1NormalUnMount St. Mary HospitalComment on above:Performed By: #### [id number] ####[facility] ([facility])[address] [place], [place] [address]EOQ WITH AUTO DIFFERENTIALon 22-44-1244Wboolbtxk (Bld) [#/Vol]0.02 10*3/uLNormal0.00-0.20UnMount St. Mary HospitalComment on above:Performed By: #### [id number] ####[facility] ([facility])[address] [place], [place] [address]Cfetgvtlj/100 WBC (Bld)0.7 %Normal 0.0-1.0UnMount St. Mary HospitalComment on above:Performed By: #### [id number] ####[facility] ([facility])[address] [place] [address] Eosinophils (Bld) [#/Vol]0.16 10*3/uLNormal0.00-0.50UnMount St. Mary HospitalComment on above:Performed By: #### [id number] ####[facility] (BE[facility])[address] [place] [address]Iorfgaxubpr/100 WBC (Bld)5.6 %Normal 0.0-6.0UnMount St. Mary HospitalComment on above:Performed By: #### [id number] ####[facility] ([facility])[address] [place] [address] Erythrocyte distribution width (RBC) [Ratio]16.2 %High11.5-15.0UnMount St. Mary HospitalComment on above:Performed By: #### [id number] ####[facility] ([facility])[address] [place], [place] [address]DMYDCWSODPM MEAN CORPUSCULAR HEMOGLOBIN CONCENTRATION (G/DL) BY QBNZTLXXV39.6 g/dLLow32.0-35.0 [facility] CenterComment on above:Performed By: #### [id number] ####[facility] ([facility])[address] [place], [place] [address]Bhpcqgziun (Bld) [Volume fraction]30.4 %Low36.0-50.0UnMount St. Mary HospitalComment on above:Performed By: #### [id number] ####[facility] ([facility])[address] [place], [place] [address]Dztagkxizp (Bld) [Mass/Vol]9.6 g/dLLow12.0-17.0UnMount St. Mary HospitalComment on above:Performed By: #### [id number] ####[facility] (BE[facility]ER)[address] [place], [place] [address]Mrbwwxtu granulocytes (Bld) [#/Vol]0.01 10*3/uLNormal0.00-0.20UnMount St. [facility] Hospital Comment on above:Performed By: #### [id number] ####[facility] ([facility])[address] [place], [place] [address]Puoakgef granulocytes/100 WBC (Bld)0.3 %Normal 0.0-1.0UnMount St. Mary HospitalComment on above:Performed By: #### [id number] ####[facility] (BE[facility])[address] [place] [address] Lymphocytes (Bld) [#/Vol]0.98 10*3/uLLow1.20-4.00UnMount St. Mary HospitalComment on above:Performed By: #### [id number] ####[facility] (AKER)[address] [place], [place] [address]Gwksaelbdcd/100 WBC (Bld)34.3 %Normal 20.0-45.0UnMount St. Mary HospitalComment on above:Performed By: #### [id number] ####[facility] (AKER)[address] [place], [place] [address]TCM (RBC) [Entitic mass]29.2 ifEqriox18.0-33.0UnMount St. Mary Hospital Comment on above:Performed By: #### [id number] ####[facility] (AKER)[address] [place], [place] [address]KQD (RBC) [Entitic vol]92.4 pERvwrub95.0-98.0 [facility] CenterComment on above:Performed By: #### [id number] ####[facility] (BEAKER)[address] [place], [place] [address]Qcxsrdqdw (Bld) [#/Vol]0.40 10*3/uLNormal0.10-1.00UnMount St. Mary HospitalComment on above:Performed By: #### [id number] ####[facility] (BE[facility]ER)[address] [place], [place] [address]Qnhbgziex/100 WBC (Bld)14.0 %High5.0-12.0UnMount St. Mary HospitalComment on above:Performed By: #### [id number] ####[facility] (BEAKER)[address] [place] [address]Ainbgklmahr (Bld) [#/Vol]1.29 10*3/uL Low1.60-7.60UnMount St. Mary HospitalComment on above:Performed By: #### [id number] ####[facility] ([facility])[address] [place] [address] Neutrophils/100 WBC (Bld)45.1 %Uryyfi06.0-72.0UnMount St. Mary HospitalComment on above:Performed By: #### [id number] ####[facility] ([facility])[address] [place] [address]GAQY (PER 100 WBCS) BY AUTOMATED COUNT 0.0 %Xgtlqx9QkdmuhrzyhMount St. Mary HospitalComment on above:Performed By: #### [id number] ####[facility] ([facility])[address] [place] [address] PLATELETS (10*3/UL) IN BLOOD AUTOMATED KBHVQ202 10*3/dNPhwkbk095-988VitriqseufMount St. Mary HospitalComment on above:Performed By: #### [id number] ####[facility] ([facility])[address] [place] [address]KXA (Bld) [#/Vol]3.29 10*6/uLLow3.80-5.70UnMount St. Mary HospitalComment on above:Performed By: #### [id number] ####[facility] ([facility])[address] [address]RIG (Bld) [#/Vol]2.86 10*3/uLLow4.00-10.60UnMount St. Mary HospitalComment on above:Performed By: #### [id number] ####[facility] ([facility])[address] [address]HFes 63-69-1742SCWexmbmHvhxqggfen of [facility] Medical CenterGlucose Poct Glucometerson 57-70-0152Ytkjwqe [Mass/Vol]142 mg/dLNoNovant Health Clemmons Medical Center Physician GroupComment on above:Result Comment: Random Glucose Reference Range is dependent on time and content of last meal. Glucose of more than 200 mg/dL in a nonstressed, ambulatory subject supports the diagnosis of Diabetes Mellitus. PERFORMED BY: [facility] [address] [place] [address] PATHOLOGIST DIRECTOR ADULT JUAN DIEGO CAMACHO M.D.Performed By: #### GLULS #### Point of Care testing ,MAGNESIUMon 58-27-7127Awnnjauhr [Mass/Vol]2.1 mg/dLNormal1.9-2.7UnMount St. Mary HospitalComment on above:Performed By: #### [id number] ####[facility] ([facility])[address] [place], [place] [address]EQNDBEJCty 06-28-2025 NURSNOTEReport given to EMT with [facility]. Transport via stretcher to [facility]. Report called to charge nurse at [phone]. IV's to Left forearm left in place per Dr. Whitley, d/t pt continuing IV antibiotics.NormalUnMount St. Mary HospitalPHOSPHORUSon 01-47-0654Rezpldder [Mass/Vol]2.5 mg/dLNormal2.5-5.0 [facility] CenterComment on above:Performed By: #### [id number] ####[facility] ([facility])[address] [place], [place] [address]JIIN GLUCOSE METER UNSOLICITED RESULTSon 25-19-9377Ycfywxf [Mass/Vol]100 mg/cWPcgteo99-389 [facility] CenterComment on above:Order Comment: Waived Testing in the ED is performed under the ED CLIA certificate #[id number].Result Comment: [id number] By: #### [id number] ####[facility] ([facility])[address] [place], [place] [address]Anoorqi [Mass/Vol]87 mg/bGJqlrfs64-631FovzugvtbdMount St. Mary HospitalComment on above:Order Comment: Waived Testing in the ED is performed under the ED CLIA certificate #[id number].Result Comment: [email or web address] Performed By: #### [id number] ####[facility] ([facility])[address] [address]zm 47-31-439540XxljbzGcyfjcdbbj of [facility] BASIC METABOLIC PANELon 61-64-8008Bprbi gap [Moles/Vol]8 mmol/LNormal7-20 [facility] CenterComment on above:Performed By: #### [id number] ####[facility] ([facility])[address] [place] [address]Ryzkthx [Mass/Vol]8.4 mg/dLLow8.6-10.3UnMount St. Mary HospitalComment on above:Performed By: #### [id number] ####[facility] ([facility])[address] [place] [address]Rayygsdx [Moles/Vol]107 mmol/LQwfwlu43-853GjipteqijjMount St. Mary HospitalComment on above:Performed By: #### [id number] ####[facility] ([facility])[address] [place] [address]ON6 [Moles/Vol]27 mmol/LNormal 21-31UnMount St. Mary HospitalComment on above:Performed By: #### [id number] ####[facility] ([facility])[address] [place] [address]Wiowuvfzsx [Mass/Vol]0.82 mg/dLNormal0.60-1.30UnMount St. Mary HospitalComment on above:Performed By: #### [id number] ####[facility] ([facility])[address] [place] [address]OOIFRRQKNE FILTRATION RATE ML/MIN/1.73 SQ M.EZYZPDTHQ67.8 mL/min/1.73m*2Normal>60.0UnMount St[address] Mary HospitalComment on above: Result Comment: [facility]???s estimated glomerular filtration rate (eGFR) [...] potential consequences that do not disproportionately affect anyone group of individuals.Performed By: #### [id number] ####[facility] ([facility])[address] [place], [place] [address]Oirkxta [Mass/Vol]86 mg/kNZsecss04-033FqtfpdxxpvMount St. Mary HospitalComment on above:Performed By: #### [id number] ####[facility] ([facility])[address] [place], [place] [address]Aubuvlztb [Moles/Vol]3.4 mmol/LLow3.5-5.1UnMount St. Mary HospitalComment on above:Performed By: #### [id number] ####[facility] ([facility])[address] [place] [address] Sodium [Moles/Vol]139 mmol/TQvcjom881-654DnvfugsujhMount St. Mary Hospital Comment on above:Performed By: #### [id number] ####[facility] ([facility])[address] [place], [place] [address]Pufy nitrogen [Mass/Vol]17 mg/dLNormal7-25 [facility] CenterComment on above:Performed By: #### [id number] ####[facility] ([facility])[address] [place], [place] [address]KEOI NITROGEN/CREATININE (MASS RATIO) IN SER/PLAS20.7NormalUniversUniversity [address] John Medical CenterComment on above:Performed By: #### [id number] ####[facility] ([facility])[address] [place], [place] [address]XZC WITH AUTO DIFFERENTIALon 70-92-3719Aarrpsjoo (Bld) [#/Vol]0.01 10*3/uLNormal0.00-0.20UnMount St. Mary HospitalComment on above:Performed By: #### [id number] ####[facility] ([facility])[address] [place], [place] [address]Wsbupkkfi/100 WBC (Bld)0.3 %Normal 0.0-1.0UnMount St. Mary HospitalComment on above:Performed By: #### [id number] ####[facility] ([facility])[address] [place] [address] Eosinophils (Bld) [#/Vol]0.17 10*3/uLNormal0.00-0.50UnMount St. Mary HospitalComment on above:Performed By: #### [id number] ####[facility] ([facility])[address] [place], [place] [address]Fwsddxjduls/100 WBC (Bld)5.5 %Normal 0.0-6.0UnMount St. Mary HospitalComment on above:Performed By: #### [id number] ####[facility] ([facility])[address] [place] [address] Erythrocyte distribution width (RBC) [Ratio]16.0 %High11.5-15.0UnMount St. Mary HospitalComment on above:Performed By: #### [id number] ####[facility] ([facility])[address] [place], [place] [address]FJKPQPRWTXQ MEAN CORPUSCULAR HEMOGLOBIN CONCENTRATION (G/DL) BY DBDGMLLQM98.5 g/dLLow32.0-35.0 [facility] CenterComment on above:Performed By: #### [id number] ####[facility] ([facility])[address] [place], [place] [address]Wbyjyercts (Bld) [Volume fraction]30.2 %Low36.0-50.0UnMount St. Mary HospitalComment on above:Performed By: #### [id number] ####[facility] ([facility])[address] [place], [place] [address]Jjronzndhv (Bld) [Mass/Vol]9.5 g/dLLow12.0-17.0UnMount St[address] Mary HospitalComment on above:Performed By: #### [id number] ####[facility] ([facility])[address] [place], [place] [address]Xtootfab granulocytes (Bld) [#/Vol]0.01 10*3/uLNormal0.00-0.20UnMount St. [facility] Comment on above:Performed By: #### [id number] ####[facility] (BEAKER)[address] [place] [address]Arzarglv granulocytes/100 WBC (Bld)0.3 %Normal 0.0-1.0UnMount St. Mary HospitalComment on above:Performed By: #### [id number] ####[facility] (BE[facility]ER)[address] [place] [address] Lymphocytes (Bld) [#/Vol]0.88 10*3/uLLow1.20-4.00UnMount St. Mary HospitalComment on above:Performed By: #### [id number] ####[facility] (BEAKER)[address] [place], [place] [address]Vetckmbnvqm/100 WBC (Bld)28.6 %Normal 20.0-45.0UnMount St. Mary HospitalComment on above:Performed By: #### [id number] ####[facility] (BEAKER)[address] [place], [place] [address]UGH (RBC) [Entitic mass]29.1 dxHkynmt47.0-33.0UnMount St. [facility] Hospital Comment on above:Performed By: #### [id number] ####[facility] (BEAKER)[address] [place], [place] [address]DFM (RBC) [Entitic vol]92.6 qPVowclc79.0-98.0 [facility] CenterComment on above:Performed By: #### [id number] ####[facility] (BEAKER)[address] [place], [place] [address]Vizaknpvz (Bld) [#/Vol]0.45 10*3/uLNormal0.10-1.00UnMount St. Mary HospitalComment on above:Performed By: #### [id number] ####[facility] (BE[facility]ER)[address] [place] [place] [address]Jtmnbjlvg/100 WBC (Bld)14.6 %High5.0-12.0UnMount St. Mary HospitalComment on above:Performed By: #### [id number] ####[facility] ([facility])[address] [place] [address]Kcqsldwuric (Bld) [#/Vol]1.56 10*3/uL Low1.60-7.60UnMount St. Mary HospitalComment on above:Performed By: #### [id number] ####[facility] ([facility])[address] [place] [address] Neutrophils/100 WBC (Bld)50.7 %Bnkjfz24.0-72.0UnMount St[address] Mary HospitalComment on above:Performed By: #### [id number] ####[facility] ([facility])[address] [place] [address]GRRK (PER 100 WBCS) BY AUTOMATED COUNT 0.0 %Lhznwx0NnbxudofegMount St. Mary HospitalComment on above:Performed By: #### [id number] ####[facility] ([facility])[address] [place] [address] PLATELETS (10*3/UL) IN BLOOD AUTOMATED SFGIQ842 10*3/sEQuynyv990-672KfwlipeqaeMount St. Mary HospitalComment on above:Performed By: #### [id number] ####[facility] ([facility])[address] [place], [place] [address]RHA (Bld) [#/Vol]3.26 10*6/uLLow3.80-5.70UnMount St. Mary HospitalComment on above:Performed By: #### [id number] ####[facility] ([facility])[address] [place], [place] [address]GOR (Bld) [#/Vol]3.08 10*3/uLLow4.00-10.60UnMount St. Mary HospitalComment on above:Performed By: #### [id number] ####[facility] ([facility])[address] [place], [place] [address]ZPSLYUIFPec 76-45-8934Oiwrxmyzp [Mass/Vol]2.1 mg/dLNormal1.9-2.7UnMount St. Mary HospitalComment on above:Performed By: #### [id number] ####[facility] ([facility])[address] [place] [address]TFKFWUCOVMtf 03-72-8292Rjuwobstr [Mass/Vol]2.4 mg/dLLow 2.5-5.0UnMount St[address] Mary HospitalComment on above:Performed By: #### [id number] ####[facility] ([facility])[address] [place] [address]TBNN GLUCOSE METER UNSOLICITED RESULTSon 81-33-2593Tpdxabx [Mass/Vol]146 mg/dLHigh 70-105UnMount St. Mary HospitalComment on above:Order Comment: Waived Testing in the ED is performed under the ED CLIA certificate #[id number].Result Comment: [email or web address] Value NotedPerformed By: #### [id number] ####[facility] ([facility])[address] [place] [address]Ddbrumg [Mass/Vol]138 mg/sFAikp93-198YjmrznskkaMount St. Mary HospitalComment on above:Order Comment: Waived Testing in the ED is performed under the ED CLIA certificate #[id number].Result Comment: [id number] By: #### [id number] ####[facility] ([facility])[address] [place] [address]Bxzzufg [Mass/Vol]111 mg/zSGwmw20-084AcmzsouhzlMount St. Mary HospitalComment on above:Order Comment: Waived Testing in the ED is performed under the ED CLIA certificate #[id number].Result Comment: [id number] By: #### [id number] ####[facility] ([facility])[address] [place], [place] [address]Gddzqpa [Mass/Vol]85 mg/bEUettvr88-832UpmvrofkxtMount St. Mary HospitalComment on above:Order Comment: Waived Testing in the ED is performed under the ED CLIA certificate #[id number].Result Comment: mkoiralPerformed By: #### [id number] ####[facility] (BEAKER)[address] [place], [place] [address]Yqqnuff [Mass/Vol]66 mg/dLLow 70-105UnMount St. Mary HospitalComment on above:Order Comment: Waived Testing in the ED is performed under the ED CLIA certificate #[id number].Result Comment: [id number] By: #### [id number] ####[facility] (BEAKER)[address] [place], [place] [address]13np 34-08-497678XqqmylCbczxnyurc [facility]ult[facility] HospitalBASIC METABOLIC PANELon 56-51-0109Ysihj gap [Moles/Vol]7 mmol/LNormal7-20 [facility] CenterComment on above:Performed By: #### [id number] ####[facility] (BEAKER)[address] [place], [place] [address]Jpbnlue [Mass/Vol]8.1 mg/dLLow8.6-10.3UnMount St. Mary HospitalComment on above:Performed By: #### [id number] ####[facility] (BEAKER)[address] [place], [place] [address]Zxzhlvus [Moles/Vol]110 mmol/RHwrv39-717XhjhahqeqrMount St. Mary HospitalComment on above:Performed By: #### [id number] ####[facility] (BEAKER)[address] [place], [place] [address]RR0 [Moles/Vol]27 mmol/XQccqwy77-98 [facility] CenterComment on above:Performed By: #### [id number] ####[facility] (BE[facility]ER)[address] [place], [place] [address]Ovclbpyeja [Mass/Vol]0.84 mg/dLNormal0.60-1.30UnMount St. Mary HospitalComment on above:Performed By: #### [id number] ####[facility] ([facility])[address] [place], [place] [address]PZFLSMIEKX FILTRATION RATE ML/MIN/1.73 SQ M.KFLMXOCGF99.6 mL/min/1.73m*2Normal>60.0UnMount St[address] Mary HospitalComment on above: Result Comment: [facility]???s estimated glomerular filtration rate (eGFR) [...] potential consequences that do not disproportionately affect anyone group of individuals.Performed By: #### [id number] ####[facility] ([facility])[address] [place], [place] [address]Pgxtrps [Mass/Vol]82 mg/gAWzngdj34-323UveowdenidMount St. Mary HospitalComment on above:Performed By: #### [id number] ####[facility] ([facility])[address] [place], [place] [address]Khwaotlit [Moles/Vol]3.5 mmol/LNormal3.5-5.1UnMount St. Mary HospitalComment on above:Performed By: #### [id number] ####[facility] ([facility])[address] [place] [address] Sodium [Moles/Vol]140 mmol/EEtkidu143-376WkrbbbbycwMount St. Mary Hospital Comment on above:Performed By: #### [id number] ####[facility] ([facility])[address] [place], [place] [address]Fykv nitrogen [Mass/Vol]23 mg/dLNormal7-25 [facility] CenterComment on above:Performed By: #### [id number] ####[facility] ([facility])[address] [place], [place] [address]AVDJ NITROGEN/CREATININE (MASS RATIO) IN SER/PLAS27.4NormalUniversUniversity Hospit[address] John Medical CenterComment on above:Performed By: #### [id number] ####[facility] ([facility])[address] [place], [place] [address]UGR WITH AUTO DIFFERENTIALon [id number] (Bld) [#/Vol]0.01 10*3/uLNormal0.00-0.20UnMount St. Mary HospitalComment on above:Performed By: #### [id number] ####[facility] ([facility])[address] [place] [address]Jkxxganpk/100 WBC (Bld)0.3 %Normal 0.0-1.0UnMount St. Mary HospitalComment on above:Performed By: #### [id number] ####[facility] ([facility])[address] [place] [address] Eosinophils (Bld) [#/Vol]0.17 10*3/uLNormal0.00-0.50UnMount St. Mary HospitalComment on above:Performed By: #### [id number] ####[facility] ([facility])[address] [place], [place] [address]Iboksohoawg/100 WBC (Bld)5.9 %Normal 0.0-6.0UnMount St. Mary HospitalComment on above:Performed By: #### [id number] ####[facility] ([facility])[address] [place] [address] Erythrocyte distribution width (RBC) [Ratio]16.4 %High11.5-15.0UnMount St. Mary HospitalComment on above:Performed By: #### [id number] ####[facility] ([facility])[address] [place], [place] [address]IQAMRWPWRZG MEAN CORPUSCULAR HEMOGLOBIN CONCENTRATION (G/DL) BY QSSNJEDHL05.8 g/dLLow32.0-35.0 [facility] CenterComment on above:Performed By: #### [id number] ####[facility] ([facility])[address] [place], [place] [address]Mrbneuvhca (Bld) [Volume fraction]28.9 %Low36.0-50.0UnMount St. Mary HospitalComment on above:Performed By: #### [id number] ####[facility] ([facility])[address] [place], [place] [address]Gkfryqcnfe (Bld) [Mass/Vol]8.9 g/dLLow12.0-17.0UnMount St. Mary HospitalComment on above:Performed By: #### [id number] ####[facility] ([facility])[address] [facility] [place] [address]Ydsxocze granulocytes (Bld) [#/Vol]0.01 10*3/uLNormal0.00-0.20UnMount St. Mary Hospital Comment on above:Performed By: #### [id number] ####[facility] ([facility])[address] [facility] [place] [address]Ffjbbvrg granulocytes/100 WBC (Bld)0.3 %Normal 0.0-1.0UnMount St. Mary HospitalComment on above:Performed By: #### [id number] ####[facility] ([facility])[address] [place] [place] [address] Lymphocytes (Bld) [#/Vol]0.99 10*3/uLLow1.20-4.00UnMount St. Mary HospitalComment on above:Performed By: #### [id number] ####[facility] ([facility])[address] [place], [place] [address]Vsgjcvjedpj/100 WBC (Bld)34.3 %Normal 20.0-45.0UnMount St. Mary HospitalComment on above:Performed By: #### [id number] ####[facility] ([facility])[address] [facility], [place] [address]GSX (RBC) [Entitic mass]28.4 xwZwnlto53.0-33.0UnMount St. Mary Hospital Comment on above:Performed By: #### [id number] ####[facility] ([facility])[address] [place], [place] [address]IGK (RBC) [Entitic vol]92.3 oFJdmynh45.0-98.0 [facility] CenterComment on above:Performed By: #### [id number] ####[facility] ([facility])[address] [place] [address]Amhlfwquk (Bld) [#/Vol]0.48 10*3/uLNormal0.10-1.00UnMount St. Mary HospitalComment on above:Performed By: #### [id number] ####[facility] ([facility])[address] [place] [address]Yhzclcpjg/100 WBC (Bld)16.6 %High5.0-12.0UnMount St. Mary HospitalComment on above:Performed By: #### [id number] ####[facility] ([facility])[address] [place] [address]Syblarzdsmp (Bld) [#/Vol]1.23 10*3/uL Low1.60-7.60UnMount St. Mary HospitalComment on above:Performed By: #### [id number] ####[facility] ([facility])[address] [place] [address] Neutrophils/100 WBC (Bld)42.6 %Trtkru76.0-72.0UnMount St. Mary HospitalComment on above:Performed By: #### [id number] ####[facility] ([facility])[address] [place] [address]WYTD (PER 100 WBCS) BY AUTOMATED COUNT 0.0 %Dkzeti0LabdgbavwyMount St. Mary HospitalComment on above:Performed By: #### [id number] ####[facility] ([facility])[address] [place] [address] PLATELETS (10*3/UL) IN BLOOD AUTOMATED [id number] 10*3/bCVxexef781-875UxmhpkakjcMount St. Mary HospitalComment on above:Performed By: #### [id number] ####[facility] ([facility])[address] [place] [address]WZA (Bld) [#/Vol]3.13 10*6/uLLow3.80-5.70UnMount St. Mary HospitalComment on above:Performed By: #### [id number] ####[facility] ([facility])[address] [place] [address]XGC (Bld) [#/Vol]2.89 10*3/uLLow4.00-10.60UnMount St. Mary HospitalComment on above:Performed By: #### [id number] ####[facility] ([facility])[address] [place] [address]HLNORNKBOoa 21-76-1492Jfsuctimx [Mass/Vol]2.1 mg/dLNormal1.9-2.7UnMount St. Mary HospitalComment on above:Performed By: #### [id number] ####[facility] ([facility])[address] [place] [address]ERDGOBFDVOtd 27-70-6582Fmaxflryp [Mass/Vol]2.7 mg/dLNormal 2.5-5.0UnMount St. Mary HospitalComment on above:Performed By: #### [id number] ####[facility] ([facility])[address] [place] [address]JCAM GLUCOSE METER UNSOLICITED RESULTSon 13-47-2294Cynchoo [Mass/Vol]105 mg/dLNormal 70-105UnMount St. Mary HospitalComment on above:Order Comment: Waived Testing in the ED is performed under the ED CLIA certificate #[id number].Result Comment: ildsgs8Lyqbzfkg Value NotedPerformed By: #### [id number] ####[facility] ([facility])[address] [place] [address]Ahftqyu [Mass/Vol]107 mg/kFNgax32-513UfwvfzfxsqMount St. Mary HospitalComment on above:Order Comment: Waived Testing in the ED is performed under the ED CLIA certificate #[id number].Result Comment: [id number] By: #### [id number] ####[facility] ([facility])[address] [place] [address]Jvjhawi [Mass/Vol]92 mg/sLUijzlx08-924TvqglbledrMount St. Mary HospitalComment on above:Order Comment: Waived Testing in the ED is performed under the ED CLIA certificate #[id number].Result Comment: [id number] By: #### [id number] ####[facility] ([facility])[address] [place], [place] [address]Agxghrt [Mass/Vol]85 mg/rGOukuqc13-064OzhjmffjvsMount St. Mary HospitalComment on above:Order Comment: Waived Testing in the ED is performed under the ED CLIA certificate #[id number].Result Comment: [id number] By: #### [id number] ####[facility] ([facility])[address] [place] [address]192tl 78-19-312[address]RwbmxkDrvjdpfsii [facility]30NormalUniversUniversity Hospitals St. John Medical CenterBASIC METABOLIC PANELon 74-06-7258Xowev gap [Moles/Vol]11 mmol/LNormal7-20UnMount St. Mary HospitalComment on above:Performed By: #### [id number] ####[facility] ([facility])[address] [place], [place] [address]Khhcmil [Mass/Vol]8.2 mg/dLLow8.6-10.3UnMount St. Mary HospitalComment on above:Performed By: #### [id number] ####[facility] ([facility])[address] [place] [address] Chloride [Moles/Vol]109 mmol/FJbeg99-521QhsujirihoMount St. Mary Hospital Comment on above:Performed By: #### [id number] ####[facility] ([facility])[address] [place], [place] [address]LU8 [Moles/Vol]24 mmol/XAzrorp21-62ApqpaxzxkmMount St. Mary HospitalComment on above:Performed By: #### [id number] ####[facility] ([facility])[address] [place], [place] [address]Rpoipwrihu [Mass/Vol]0.72 mg/dL Normal0.60-1.30UnMount St. Mary HospitalComment on above:Performed By: #### [id number] ####[facility] ([facility])[address] [place] [address] GLOMERULAR FILTRATION RATE ML/MIN/1.73 SQ M.DCRHFSOLJ70.2 mL/min/1.73m*2Normal >60.0UnMount St. Mary HospitalComment on above:Result Comment: [facility]???s estimated glomerular filtration rate (eG FR) will no longer include consideration of race [...] potential consequences that do not disproportionately affect anyone group of individuals. Performed By: #### [id number] ####[facility] ([facility])[address] [place], [place] [address]Qirdlnh [Mass/Vol]78 mg/gYVttrua28-392ImeisbtmdnMount St. Mary HospitalComment on above:Performed By: #### [id number] ####[facility] ([facility])[address] [place], [place] [address]Zmazbiocp [Moles/Vol]3.7 mmol/LNormal 3.5-5.1UnMount St. Mary HospitalComment on above:Performed By: #### [id number] ####[facility] ([facility])[address] [place], [place] [address]Hcymck [Moles/Vol]140 mmol/ZVfvtia527-830FmvahteuljMount St. Mary HospitalComment on above:Performed By: #### [id number] ####[facility] ([facility])[address] [facility] [place] [address]Mwat nitrogen [Mass/Vol]23 mg/dLNormal7-25UnMount St. Mary HospitalComment on above:Performed By: #### [id number] ####[facility] ([facility])[address] [facility] [place], [place] [address]QEVH NITROGEN/CREATININE (MASS RATIO) IN SER/PLAS31.9NormalUniversUniversity Hospitals St. John Medical CenterComment on above: Performed By: #### [id number] ####[facility] ([facility])[address] [place] [address]NMB WITH AUTO DIFFERENTIALon 62-12-1495Kidinufxn (Bld) [#/Vol]0.02 10*3/uLNormal0.00-0.20UnMount St. Mary HospitalComment on above: Performed By: #### [id number] ####[facility] ([facility])[address] [place] [address]Pfqtykdvq/100 WBC (Bld)0.6 %Normal0.0-1.0UnMount St. Mary HospitalComment on above:Performed By: #### [id number] ####[facility] ([facility])[address] [place], [place] [address]Gugpnsahpvc (Bld) [#/Vol]0.20 10*3/uL Normal0.00-0.50UnMount St. Mary HospitalComment on above:Performed By: #### [id number] ####[facility] ([facility])[address] [place] [address] Eosinophils/100 WBC (Bld)5.8 %Normal0.0-6.0UnMount St. Mary Hospital Comment on above:Performed By: #### [id number] ####[facility] ([facility])[address] [place], [place] [address]Vepbxmtsxzg distribution width (RBC) [Ratio]16.3 % High11.5-15.0UnMount St. Mary HospitalComment on above:Performed By: #### [id number] ####[facility] ([facility])[address] [place] [address] ERYTHROCYTE MEAN CORPUSCULAR HEMOGLOBIN CONCENTRATION (G/DL) BY CLMQFIRLM66.5 g/dLLow32.0-35.0UnMount St. Mary HospitalComment on above:Performed By: #### [id number] ####[facility] ([facility])[address] [place], [place] [address]Uopdbmxphz (Bld) [Volume fraction]29.5 %Low36.0-50.0UnMount St. Mary HospitalComment on above:Performed By: #### [id number] ####[facility] ([facility])[address] [place], [place] [address]Djsilmqipz (Bld) [Mass/Vol]9.3 g/dLLow 12.0-17.0UnMount St. Mary HospitalComment on above:Performed By: #### [id number] ####[facility] ([facility])[address] [place], [place] [address]Ypdnywdb granulocytes (Bld) [#/Vol]0.02 10*3/uLNormal0.00-0.20UnMount St. Mary HospitalComment on above:Performed By: #### [id number] ####[facility] ([facility])[address] [place], [place] [address]Dciazieo granulocytes/100 WBC (Bld)0.6 %Normal0.0-1.0UnMount St. Mary HospitalComment on above:Performed By: #### [id number] ####[facility] ([facility])[address] [place] [address] Lymphocytes (Bld) [#/Vol]1.02 10*3/uLLow1.20-4.00UnMount St. Mary HospitalComment on above:Performed By: #### [id number] ####[facility] ([facility])[address] [place], [place] [address]Iwxskliajni/100 WBC (Bld)29.5 %Normal 20.0-45.0UnMount St. Mary HospitalComment on above:Performed By: #### [id number] ####[facility] ([facility])[address] [place], [place] [address]RHQ (RBC) [Entitic mass]29.2 yhDefcvr73.0-33.0UnMount St. Mary Hospital Comment on above:Performed By: #### [id number] ####[facility] ([facility])[address] [place], [place] [address]JHK (RBC) [Entitic vol]92.8 aMWnjyip37.0-98.0 [facility] CenterComment on above:Performed By: #### [id number] ####[facility] ([facility])[address] [place] [address]Kexwjbbzv (Bld) [#/Vol]0.54 10*3/uLNormal0.10-1.00UnMount St. Mary HospitalComment on above:Performed By: #### [id number] ####[facility] ([facility])[address] [place] [address]Jqljxuipd/100 WBC (Bld)15.6 %High5.0-12.0UnMount St. Mary HospitalComment on above:Performed By: #### [id number] ####[facility] ([facility])[address] [place] [address]Wkyagmqgzhm (Bld) [#/Vol]1.66 10*3/uL Normal1.60-7.60UnMount St. Mary HospitalComment on above:Performed By: #### [id number] ####[facility] ([facility])[address] [place] [address] Neutrophils/100 WBC (Bld)47.9 %Kslmvv67.0-72.0UnMount St. Mary HospitalComment on above:Performed By: #### [id number] ####[facility] ([facility])[address] [place], [place] [address]NPNM (PER 100 WBCS) BY AUTOMATED COUNT 0.0 %Cqlion5DacclepavfMount St. Mary HospitalComment on above:Performed By: #### [id number] ####[facility] ([facility])[address] [place] [address] PLATELETS (10*3/UL) IN BLOOD AUTOMATED [id number] 10*3/mMOvfzzl415-449KglovyyvmwMount St. Mary HospitalComment on above:Performed By: #### [id number] ####[facility] ([facility])[address] [place] [address]ZEI (Bld) [#/Vol]3.18 10*6/uLLow3.80-5.70UnMount St. Mary HospitalComment on above:Performed By: #### [id number] ####[facility] ([facility])[address] [place] [address]UJX (Bld) [#/Vol]3.46 10*3/uLLow4.00-10.60UnMount St. Mary HospitalComment on above:Performed By: #### [id number] ####[facility] ([facility])[address] [place] [address]BQODQYEDFmr 35-42-0466Qvtfpsujd [Mass/Vol]2.1 mg/dLNormal1.9-2.7UnMount St. Mary HospitalComment on above:Performed By: #### [id number] ####[facility] ([facility])[address] [place] [address]GIRWLEZOARww 85-18-2894Fsndhbfde [Mass/Vol]2.6 mg/dLNormal 2.5-5.0UnMount St. Mary HospitalComment on above:Performed By: #### [id number] ####[facility] ([facility])[address] [place] [address]SXNS GLUCOSE METER UNSOLICITED RESULTSon 99-82-5996Esclevi [Mass/Vol]118 mg/dLHigh 70-105UnMount St. Mary HospitalComment on above:Order Comment: Waived Testing in the ED is performed under the ED CLIA certificate #[id number].Result Comment: [id number] By: #### [id number] ####[facility] ([facility])[address] [place] [address]Oljavca [Mass/Vol]112 mg/jSNtrb78-907ExkvdlccpqMount St. Mary HospitalComment on above:Order Comment: Waived Testing in the ED is performed under the ED CLIA certificate #[id number].Result Comment: [id number] Performed By: #### [id number] ####[facility] ([facility])[address] [place] [address]Luxjlvs [Mass/Vol]99 mg/jCYvvwct53-783GkrkkkkzldMount St. Mary HospitalComment on above:Order Comment: Waived Testing in the ED is performed under the ED CLIA certificate #[id number].Result Comment: [id number] Performed By: #### [id number] ####[facility] ([facility])[address] [place], [place] [address]Rznnxnz [Mass/Vol]111 mg/gJFyxw03-134SiljfxyfvkMount St. Mary HospitalComment on above:Order Comment: Waived Testing in the ED is performed under the ED CLIA certificate #[id number].Result Comment: [email or web address] Performed By: #### [id number] ####[facility] ([facility])[address] [place], [place] [address]Alrvfeb [Mass/Vol]89 mg/fXVlcfhj90-202VpehvxdloaMount St. Mary HospitalComment on above:Order Comment: Waived Testing in the ED is performed under the ED CLIA certificate #[id number].Result Comment: [email or web address] Performed By: #### [id number] ####[facility] ([facility])[address] [place], [place] [address]dy 92-24-250[address]KtakrgJixgfolzdp of [place] [facility] Jcueih[address] Mary HospitalBASIC METABOLIC PANELon 29-40-8802Rfzqz gap [Moles/Vol]4 mmol/LLow7-20UnMount St. Mary HospitalComment on above:Performed By: #### [id number] ####[facility] ([facility])[address] [place], [place] [address]Rywjiir [Mass/Vol]8.0 mg/dLLow8.6-10.3UnMount St. Mary HospitalComment on above:Performed By: #### [id number] ####[facility] ([facility])[address] [place], [place] [address]Xeewwkap [Moles/Vol]113 mmol/LHigh 98-107UnMount St. Mary HospitalComment on above:Performed By: #### [id number] ####[facility] ([facility])[address] [place], [place] [address]LZ0 [Moles/Vol]25 mmol/VBkdjxb02-02HhglqgudvfMount St. Mary HospitalComment on above:Performed By: #### [id number] ####[facility] ([facility])[address] [place] [address]Qjrvnikshy [Mass/Vol]0.65 mg/dLNormal0.60-1.30UnMount St. Mary HospitalComment on above:Performed By: #### [id number] ####[facility] ([facility])[address] [place] [address]IVKRYIXDFK FILTRATION RATE ML/MIN/1.73 SQ M.BNEETKZFR16.0 mL/min/1.73m*2Normal>60.0UnMount St[address] Mary HospitalComment on above:Result Comment: [facility]???s estimated glomerular filtration rate (eGFR) [...] potential consequences that do not disproportionately affect anyone group of individuals.Performed By: #### [id number] ####[facility] ([facility])[address] [place], [place] [address]Fblphoa [Mass/Vol]101 mg/qWCfdy69-367GaguamgxvzMount St. Mary HospitalComment on above:Performed By: #### [id number] ####[facility] ([facility])[address] [place] [address]Lltbmoywi [Moles/Vol]3.8 mmol/LNormal3.5-5.1UnMount St. Mary HospitalComment on above:Performed By: #### [id number] ####[facility] ([facility])[address] [place] [address]Qwicfr [Moles/Vol]138 mmol/L Lpxasl048-435SxprhtrwonMount St. Mary HospitalComment on above:Performed By: #### [id number] ####[facility] ([facility])[address] [place] [address]Jbzi nitrogen [Mass/Vol]21 mg/dLNormal7-25UnMount St. Mary HospitalComment on above:Performed By: #### [id number] ####[facility] ([facility])[address] [place] [address]SBYL NITROGEN/CREATININE (MASS RATIO) IN SER/PLAS32.3Normal [facility] CenterComment on above:Performed By: #### [id number] ####[facility] ([facility])[address] [place], [place] [address]XYE WITH AUTO DIFFERENTIALon 31-30-9613Admdtfces (Bld) [#/Vol]0.02 10*3/uLNormal0.00-0.20 [facility] CenterComment on above:Performed By: #### [id number] ####[facility] ([facility])[address] [place], [place] [address]Zabvgwkqh/100 WBC (Bld)0.6 %Normal0.0-1.0UnMount St. Mary HospitalComment on above: Performed By: #### [id number] ####[facility] ([facility])[address] [place], [place] [address]Cfkcmfpmcpl (Bld) [#/Vol]0.17 10*3/uLNormal0.00-0.50 [facility] CenterComment on above:Performed By: #### [id number] ####[facility] ([facility])[address] [place], [place] [address]Ndwmwbtqntx/100 WBC (Bld)5.1 %Normal0.0-6.0UnMount St. Mary HospitalComment on above: Performed By: #### [id number] ####[facility] ([facility])[address] [place], [place] [address]Soesdkzhsgg distribution width (RBC) [Ratio]16.2 %High 11.5-15.0UnMount St. Mary HospitalComment on above:Performed By: #### [id number] ####[facility] ([facility])[address] [place] [address] ERYTHROCYTE MEAN CORPUSCULAR HEMOGLOBIN CONCENTRATION (G/DL) BY VFPGAGAIT97.6 g/hKUepwdb69.0-35.0UnMount St. Mary HospitalComment on above:Performed By: #### [id number] ####[facility] ([facility])[address] [place], [place] [address]Plhhtfelth (Bld) [Volume fraction]27.9 %Low36.0-50.0UnMount St. Mary HospitalComment on above:Performed By: #### [id number] ####[facility] ([facility])[address] [place], [place] [address]Epgaxnagkh (Bld) [Mass/Vol]9.1 g/dLLow 12.0-17.0UnMount St. Mary HospitalComment on above:Performed By: #### [id number] ####[facility] ([facility])[address] [place], [place] [address]Imdlrveu granulocytes (Bld) [#/Vol]0.01 10*3/uLNormal0.00-0.20UnMount St. Mary HospitalComment on above:Performed By: #### [id number] ####[facility] ([facility])[address] [place], [place] [address]Silxgkox granulocytes/100 WBC (Bld)0.3 %Normal0.0-1.0UnMount St. Mary HospitalComment on above:Performed By: #### [id number] ####[facility] ([facility])[address] [place] [address] Lymphocytes (Bld) [#/Vol]0.70 10*3/uLLow1.20-4.00UnMount St. Mary HospitalComment on above:Performed By: #### [id number] ####[facility] ([facility])[address] [place], [place] [address]Fspufuunowv/100 WBC (Bld)21.1 %Normal 20.0-45.0[facility] CenterComment on above:Performed By: #### [id number] ####[facility] ([facility])[address] [place] [address]HQB (RBC) [Entitic mass]29.1 doDcupyi00.0-33.0UnMount St. Mary Hospital Comment on above:Performed By: #### [id number] ####[facility] ([facility])[address] [place], [place] [address]VKC (RBC) [Entitic vol]89.1 xVQvsrfv55.0-98.0 [facility] CenterComment on above:Performed By: #### [id number] ####[facility] ([facility])[address] [facility] [place] [address]Dmryhwihw (Bld) [#/Vol]0.38 10*3/uLNormal0.10-1.00UnMount St. Mary HospitalComment on above:Performed By: #### [id number] ####[facility] ([facility])[address] [place], [place] [address]Ezmnzdvur/100 WBC (Bld)11.5 %Normal5.0-12.0UnMount St. Mary HospitalComment on above:Performed By: #### [id number] ####[facility] ([facility])[address] [place], [place] [address]Zjdskabpwhu (Bld) [#/Vol] 2.03 10*3/uLNormal1.60-7.60UnMount St. Mary HospitalComment on above: Performed By: #### [id number] ####[facility] ([facility])[address] [facility] [place] [address]Wpwkrbhilny/100 WBC (Bld)61.4 %Vdphnh74.0-72.0UnMount St. Mary HospitalComment on above:Performed By: #### [id number] ####[facility] ([facility])[address] [facility] [address]BEDX (PER 100 WBCS) BY AUTOMATED COUNT0.0 %Qepngf2YreccpsahzMount St. Mary HospitalComment on above: Performed By: #### [id number] ####[facility] ([facility])[address] [place] [address]SUNUMHNRB (10*3/UL) IN BLOOD AUTOMATED [id number] 10*3/uLNormal 150-400UnMount St. Mary HospitalComment on above:Performed By: #### [id number] ####[facility] ([facility])[address] [place] [address]UYL (Bld) [#/Vol]3.13 10*6/uLLow3.80-5.70UnMount St. Mary HospitalComment on above:Performed By: #### [id number] ####[facility] ([facility])[address] [place] [address]VXR (Bld) [#/Vol]3.31 10*3/uLLow4.00-10.60UnMount St. Mary HospitalComment on above:Performed By: #### [id number] ####[facility] ([facility])[address] [place] [address]JQWHTSFTWcy 06-24-2025 Magnesium [Mass/Vol]2.2 mg/dLNormal1.9-2.7UnMount St. Mary Hospital Comment on above:Performed By: #### [id number] ####[facility] ([facility])[address] [place] [address]WCFIFKWKXEnb 51-58-4496Eqvmmunuc [Mass/Vol]2.6 mg/dLNormal2.5-5.0UnMount St. Mary HospitalComment on above:Performed By: #### [id number] ####[facility] ([facility])[address] [place] [address] POCT GLUCOSE METER UNSOLICITED RESULTSon 24-34-5347Wsfqifr [Mass/Vol]109 mg/dL Qhak25-158KdbcjnvbmzMount St. Mary HospitalComment on above:Order Comment: Waived Testing in the ED is performed under the ED CLIA certificate #[id number]. Result Comment: [email or web address] By: #### [id number] ####[facility] ([facility])[address] [place], [place] [address]Parayiv [Mass/Vol]102 mg/dLNormal 70-105UnMount St. Mary HospitalComment on above:Order Comment: Waived Testing in the ED is performed under the ED CLIA certificate #[id number].Result Comment: [id number] By: #### [id number] ####[facility] ([facility])[address] [place], [place] [address]Kpgefzj [Mass/Vol]97 mg/xEVokbdh14-411RtipjdgebrMount St. Mary HospitalComment on above:Order Comment: Waived Testing in the ED is performed under the ED CLIA certificate #[id number].Result Comment: [email or web address] Performed By: #### [id number] ####[facility] ([facility])[address] [place], [place] [address]Jhrzdvb [Mass/Vol]103 mg/dHCbmiop04-659PkjyzsxulvMount St. Mary HospitalComment on above:Order Comment: Waived Testing in the ED is performed under the ED CLIA certificate #[id number].Result Comment: [id number] Performed By: #### [id number] ####[facility] ([facility])[address] [place], [place] [address]Ouiompn [Mass/Vol]105 mg/sZJrkwfo92-907ZescazdxmeMount St. Mary HospitalComment on above:Order Comment: Waived Testing in the ED is performed under the ED CLIA certificate #[id number].Result Comment: [email or web address] Performed By: #### [id number] ####[facility] ([facility])[address] [place], [place] [address]11ws 05-79-288411YtxsbjJqsmkcnnfx of [facility] BASIC METABOLIC PANELon 40-94-6260Mofnx gap [Moles/Vol]7 mmol/LNormal7-20 [facility] CenterComment on above:Performed By: #### [id number] ####[facility] ([facility])[address] [place], [place] [address]Vcveovw [Mass/Vol]8.0 mg/dLLow8.6-10.3UnMount St. Mary HospitalComment on above:Performed By: #### [id number] ####[facility] ([facility])[address] [place] [address]Ktwmqqqr [Moles/Vol]110 mmol/CLkfa30-321ZpeootijnwMount St. Mary HospitalComment on above:Performed By: #### [id number] ####[facility] ([facility])[address] [place] [address]HO4 [Moles/Vol]24 mmol/CLrpdwc00-45 [facility] CenterComment on above:Performed By: #### [id number] ####[facility] ([facility])[address] [place] [address]Ncnkniaerp [Mass/Vol]0.56 mg/dLLow0.60-1.30UnMount St. Mary HospitalComment on above:Performed By: #### [id number] ####[facility] ([facility])[address] [place], [place] [address]XVPQUDGDMR FILTRATION RATE ML/MIN/1.73 SQ M.LGQIJFNRR556.6 mL/min/1.73m*2Normal>60.0UnMount St. Mary HospitalComment on above: Result Comment: [facility]???s estimated glomerular filtration rate (eGFR) [...] potential consequences that do not disproportionately affect anyone group of individuals.Performed By: #### [id number] ####[facility] ([facility])[address] [address]Ehersmb [Mass/Vol]104 mg/mTAmir79-873UzgruuqbryMount St. Mary HospitalComment on above:Performed By: #### [id number] ####[facility] ([facility])[address] [place] [address]Wmoxuqogr [Moles/Vol]3.3 mmol/L Low3.5-5.1UnMount St. Mary HospitalComment on above:Performed By: #### [id number] ####[facility] ([facility])[address] [place] [address]Zjstkq [Moles/Vol]138 mmol/BFqhoil011-790BfipgbddriMount St. Mary HospitalComment on above:Performed By: #### [id number] ####[facility] ([facility])[address] [place] [address]Yhjj nitrogen [Mass/Vol]15 mg/dLNormal7-25UnMount St. Mary HospitalComment on above:Performed By: #### [id number] ####[facility] ([facility])[address] [place] [address]GNZT NITROGEN/CREATININE (MASS RATIO) IN SER/PLAS26.8NormalUniversUniversity Hospitals [address] John Medical CenterComment on above: Performed By: #### [id number] ####[facility] ([facility])[address] [place] [address]YLK WITH AUTO DIFFERENTIALon 87-97-5851Ioiinnugo (Bld) [#/Vol]0.02 10*3/uLNormal0.00-0.20UnMount St. Mary HospitalComment on above: Performed By: #### [id number] ####[facility] ([facility])[address] [place] [address]Nfjtchgdn/100 WBC (Bld)0.4 %Normal0.0-1.0UnMount St. Mary HospitalComment on above:Performed By: #### [id number] ####[facility] ([facility])[address] [facility] [address]Edjucrnurws (Bld) [#/Vol]0.23 10*3/uL Normal0.00-0.50UnMount St. Mary HospitalComment on above:Performed By: #### [id number] ####[facility] ([facility])[address] [place] [address] Eosinophils/100 WBC (Bld)4.9 %Normal0.0-6.0UnMount St. Mary Hospital Comment on above:Performed By: #### [id number] ####[facility] ([facility])[address] [place], [place] [address]Jcgxidiszxa distribution width (RBC) [Ratio]15.9 % High11.5-15.0UnMount St. Mary HospitalComment on above:Performed By: #### [id number] ####[facility] ([facility])[address] [place] [address] ERYTHROCYTE MEAN CORPUSCULAR HEMOGLOBIN CONCENTRATION (G/DL) BY JLKWETYIQ24.8 g/mBNtvgxd31.0-35.0UnMount St. Mary HospitalComment on above:Performed By: #### [id number] ####[facility] ([facility])[address] [place], [place] [address]Ukldmfjaom (Bld) [Volume fraction]28.7 %Low36.0-50.0UnMount St. Mary HospitalComment on above:Performed By: #### [id number] ####[facility] ([facility])[address] [place], [place] [address]Cyjqrtwfra (Bld) [Mass/Vol]9.4 g/dLLow 12.0-17.0UnMount St. Mary HospitalComment on above:Performed By: #### [id number] ####[facility] ([facility])[address] [place], [place] [address]Adevoxmo granulocytes (Bld) [#/Vol]0.03 10*3/uLNormal0.00-0.20UnMount St. Mary HospitalComment on above:Performed By: #### [id number] ####[facility] ([facility])[address] [place], [place] [address]Usuoqzve granulocytes/100 WBC (Bld)0.6 %Normal0.0-1.0UnMount St. Mary HospitalComment on above:Performed By: #### [id number] ####[facility] ([facility])[address] [place] [address] IMMATURE PLATELET FRACTION %13.1 %High0.8-6.3UnMount St. Mary Hospital Comment on above:Performed By: #### [id number] ####[facility] ([facility])[address] [place] [address]Fktlgynhddx (Bld) [#/Vol]0.73 10*3/uLLow1.20-4.00 [facility] CenterComment on above:Performed By: #### [id number] ####[facility] ([facility])[address] [place] [address]Oomktlvglzo/100 WBC (Bld)15.6 %Low20.0-45.0UnMount St. Mary HospitalComment on above: Performed By: #### [id number] ####[facility] ([facility])[address] [place] [address]QOE (RBC) [Entitic mass]29.1 eeUmyrst68.0-33.0UnMount St. Mary HospitalComment on above:Performed By: #### [id number] ####[facility] ([facility])[address] [facility], [place] [address]XCX (RBC) [Entitic vol] 88.9 rIYwhmng04.0-98.0UnMount St. Mary HospitalComment on above: Performed By: #### [id number] ####[facility] ([facility])[address] [place], [place] [address]Vefcijzmw (Bld) [#/Vol]0.43 10*3/uLNormal0.10-1.00UnMount St. Mary HospitalComment on above:Performed By: #### [id number] ####[facility] ([facility])[address] [facility] [place] [address]Mthfbfcnx/100 WBC (Bld) 9.2 %Normal5.0-12.0UnMount St. Mary HospitalComment on above:Performed By: #### [id number] ####[facility] ([facility])[address] [facility] [place] [address]Xawvjchnpfr (Bld) [#/Vol]3.23 10*3/uLNormal1.60-7.60UnMount St. Mary HospitalComment on above:Performed By: #### [id number] ####[facility] ([facility])[address] [address]Kzuutwqdlie/100 WBC (Bld)69.3 %Normal 40.0-72.0UnMount St. Mary HospitalComment on above:Performed By: #### [id number] ####[facility] ([facility])[address] [address]PTUA (PER 100 WBCS) BY AUTOMATED COUNT0.0 %Opmtls6IlommfcfbhMount St. Mary Hospital Comment on above:Performed By: #### [id number] ####[facility] ([facility])[address] [place] [address]LTAKGLNZB (10*3/UL) IN BLOOD AUTOMATED [id number] 10*3/lOCzogue680-483EfxixcpkdxMount St. Mary HospitalComment on above: Performed By: #### [id number] ####[facility] ([facility])[address] [place] [address]BNM (Bld) [#/Vol]3.23 10*6/uLLow3.80-5.70UnMount St. Mary HospitalComment on above:Performed By: #### [id number] ####[facility] ([facility])[address] [place] [address]LHX (Bld) [#/Vol]4.67 10*3/uLNormal 4.00-10.60UnMount St. Mary HospitalComment on above:Performed By: #### [id number] ####[facility] ([facility])[address] [place] [address]KTNDXMB on 84-20-1936XIFJKDZPogfqrXcmuhauhhm of [facility] Medical CenterMAGNESIUMon 53-76-1002Zpavegmrp [Mass/Vol]1.9 mg/dLNormal1.9-2.7UnMount St. Mary HospitalComment on above:Performed By: #### [id number] ####[facility] ([facility])[address] [place], [place] [address]VMLVTTEOQRqo 20-67-3420Stnsalnye [Mass/Vol]2.6 mg/dLNormal2.5-5.0UnMount St. Mary HospitalComment on above:Performed By: #### [id number] ####[facility] ([facility])[address] [place], [place] [address]WQEK GLUCOSE METER UNSOLICITED RESULTSon 70-37-6843Alfhsrb [Mass/Vol]117 mg/kGJsas23-542KbppdtlkakMount St. Mary HospitalComment on above:Order Comment: Waived Testing in the ED is performed under the ED CLIA certificate #[id number].Result Comment: [id number] By: #### [id number] ####[facility] ([facility])[address] [place], [place] [address]Uxwoqbm [Mass/Vol]133 mg/wNCynu64-654AjejynrlcsMount St. Mary HospitalComment on above:Order Comment: Waived Testing in the ED is performed under the ED CLIA certificate #[id number].Result Comment: [id number] By: #### [id number] ####[facility] ([facility])[address] [place], [place] [address]Qavjqrv [Mass/Vol]111 mg/uZGsry98-655StjflelbeqMount St. Mary HospitalComment on above:Order Comment: Waived Testing in the ED is performed under the ED CLIA certificate #[id number].Result Comment: voikqh7Htdrzqnm Value NotedPerformed By: #### [id number] ####[facility] ([facility])[address] [place] [address] Glucose [Mass/Vol]95 mg/fKWnzlkf82-230VrdynhghnyMount St. Mary HospitalComment on above:Order Comment: Waived Testing in the ED is performed under the ED CLIA certificate #[id number].Result Comment: [id number] By: #### [id number] ####[facility] ([facility])[address] [place], [place] [address]ZLDCRUFBKBks 89-37-4404ORAFWNIYE, TOTAL PRESENCE IN URINENegativeNormalNegativeMain Campus Medical CenterComment on above:Performed By: #### [id number] ####[facility] ([facility])[address] [facility] [place] [address]Ktyuokh (U)ClearNormal ClearUnMount St. Mary HospitalComment on above:Performed By: #### [id number] ####[facility] ([facility])[address] [facility] [place] [address]Dudgw (U) Light-YellowNormalColorless, Yellow, Light-YellowUnMount St. Mary HospitalComment on above:Performed By: #### [id number] ####[facility] ([facility])[address] [facility] [place] [address]WKFSKCQ (MG/DL) IN URINENormalNormal NormalUnMount St. Mary HospitalComment on above:Performed By: #### [id number] ####[facility] ([facility])[address] [place] [address] HEMOGLOBIN PRESENCE IN URINESmallAbnoatrium health carolinas rehabilitation charlotteNegFayette County Memorial HospitalComment on above:Performed By: #### [id number] ####[facility] ([facility])[address] [facility] [place] [address]Ljkbuvn Ql (U)NegativeNormalNegative [facility] CenterComment on above:Performed By: #### [id number] ####[facility] ([facility])[address] [facility] [place] [address]OIZJDBCHJ ESTERASE PRESENCE IN URINE BY TEST STRIPLargeAbnoatrium health carolinas rehabilitation charlotteNegativeMain Campus Medical CenterComment on above:Performed By: #### [id number] ####[facility] ([facility])[address] [facility] [address]IXDIPDG PRESENCE IN URINE NegativeNormalNegativeMain Campus Medical CenterComment on above: Performed By: #### [id number] ####[facility] ([facility])[address] [facility] [place], [place] [address]nK (U)6.5 [pH]Normal5.0-8.0UnMount St. Mary HospitalComment on above:Performed By: #### [id number] ####[facility] ([facility])[address] [place] [address]Qahdzld (U) [Mass/Vol]NegativeNormal NegativeUnMount St. Mary HospitalComment on above:Performed By: #### [id number] ####[facility] ([facility])[address] [place] [address]Fcvulpeh gravity (U) [Rel density]1.512Uvr5.010-1.030UnMount St. Mary Hospital Comment on above:Performed By: #### [id number] ####[facility] ([facility])[address] [place], [place] [address]ITCBYOLHHOVH (MG/DL) IN URINE2.0 mg/dLAbnormal NormalUnMount St. Mary HospitalComment on above:Performed By: #### [id number] ####[facility] ([facility])[address] [place] [address] URINALYSIS MICROSCOPICon 30-73-6815IJLSI (#/LPF) IN URINE SEDIMENTOccasional NormalNone Seen, Occasional, FewUnMount St. Mary HospitalComment on above:Performed By: #### [id number] ####[facility] ([facility])[address] [facility], [place] [address]RBE (#/HPF) IN URINE SEDIMENT6-10AbnormalNone Seen, 0-2 [facility] CenterComment on above:Performed By: #### [id number] ####[facility] ([facility])[address] [facility] [place] [address]YWWRNSWQ EPITHELIAL CELLS (#/LPF) IN URINE SEDIMENTNone SeenNormalNone Seen, Occasional, FewUnMount St. Mary HospitalComment on above:Performed By: #### [id number] ####[facility] ([facility])[address] [place], [place] [address]HNT (LEUKOCYTE) (#/HPF) IN URINE LGEDKTIZ30-56HpkznqwqYevi Seen, 0-2UnMount St. Mary HospitalComment on above:Performed By: #### [id number] ####[facility] ([facility])[address] [place], [place] [address]EQGHZ METABOLIC PANELon 06-22-2025 Anion gap [Moles/Vol]7 mmol/LNormal7-20UnMount St. [facility] Comment on above:Performed By: #### [id number] ####[facility] ([facility])[address] [place], [place] [address]Xjtjsns [Mass/Vol]8.1 mg/dLLow8.6-10.3UnMount St. Mary HospitalComment on above:Performed By: #### [id number] ####[facility] ([facility])[address] [place], [place] [address]Ftelwliq [Moles/Vol]110 mmol/GFybv64-307LoobnutxsxMount St. Mary HospitalComment on above:Performed By: #### [id number] ####[facility] ([facility])[address] [place] [address] CO2 [Moles/Vol]24 mmol/ZBpqdlo31-70ZwbbddcvshMount St. Mary HospitalComment on above:Performed By: #### [id number] ####[facility] ([facility])[address] [place], [place] [address]Foslxgwyof [Mass/Vol]0.55 mg/dLLow0.60-1.30UnMount St. Mary HospitalComment on above:Performed By: #### [id number] ####[facility] ([facility])[address] [facility] [address]GGDJBRETIR FILTRATION RATE ML/MIN/1.73 SQ M.VTXORVBRJ598.0 mL/min/1.73m*2Normal>60.0UnMount St[address] Mary HospitalComment on above:Result Comment: [facility]???s estimated glomerular filtration rate (eGFR) [...] potential consequences that do not disproportionately affect anyone group of individuals.Performed By: #### [id number] ####[facility] ([facility])[address] [place], [place] [address]Pevsdhx [Mass/Vol]99 mg/xQBphhdd80-038OpzxrcmtlgMount St. Mary HospitalComment on above:Performed By: #### [id number] ####[facility] ([facility])[address] [place], [place] [address]Aeutktrut [Moles/Vol]3.2 mmol/LLow3.5-5.1UnMount St. Mary HospitalComment on above:Performed By: #### [id number] ####[facility] ([facility])[address] [place], [place] [address]Jtgrlz [Moles/Vol]138 mmol/LNormal 136-145UnMount St. Mary HospitalComment on above:Performed By: #### [id number] ####[facility] ([facility])[address] [place], [place] [address]Hbnr nitrogen [Mass/Vol]14 mg/dLNormal7-25UnMount St. Mary HospitalComment on above:Performed By: #### [id number] ####[facility] ([facility])[address] [place], [place] [address]QIGU NITROGEN/CREATININE (MASS RATIO) IN SER/PLAS25.5Normal [facility] CenterComment on above:Performed By: #### [id number] ####[facility] ([facility])[address], [place] [address]LEW WITH AUTO DIFFERENTIALon [id number] (Bld) [#/Vol]0.01 10*3/uLNormal0.00-0.20 [facility] CenterComment on above:Performed By: #### [id number] ####[facility] ([facility])[address], [place] [address]Rchltxjpz/100 WBC (Bld)0.3 %Normal0.0-1.0UnMount St. Mary HospitalComment on above: Performed By: #### [id number] ####[facility] ([facility])[address] [place], [place] [address]Anoycjpdqol (Bld) [#/Vol]0.20 10*3/uLNormal0.00-0.50 [facility] CenterComment on above:Performed By: #### [id number] ####[facility] ([facility])[address] [place], [place] [address]Cawsupsoeox/100 WBC (Bld)5.1 %Normal0.0-6.0UnMount St. Mary HospitalComment on above: Performed By: #### [id number] ####[facility] ([facility])[address] [place], [place] [address]Brntmsritmn distribution width (RBC) [Ratio]15.7 %High 11.5-15.0UnMount St. Mary HospitalComment on above:Performed By: #### [id number] ####[facility] ([facility])[address] [place] [address] ERYTHROCYTE MEAN CORPUSCULAR HEMOGLOBIN CONCENTRATION (G/DL) BY COADEIVCY95.7 g/aTTyswdx20.0-35.0UnMount St. Mary HospitalComment on above:Performed By: #### [id number] ####[facility] ([facility])[address] [place], [place] [address]Ubjjoypbdy (Bld) [Volume fraction]26.0 %Low36.0-50.0UnMount St. Mary HospitalComment on above:Performed By: #### [id number] ####[facility] ([facility])[address] [place], [place] [address]Yzfxhlpkbt (Bld) [Mass/Vol]8.5 g/dLLow 12.0-17.0UnMount St. Mary HospitalComment on above:Performed By: #### [id number] ####[facility] (BEAKER)[address] [place], [place] [address]Wnhfploi granulocytes (Bld) [#/Vol]0.02 10*3/uLNormal0.00-0.20UnMount St. Mary HospitalComment on above:Performed By: #### [id number] ####[facility] (BEAKER)[address] [place] [address]Ohltjalj granulocytes/100 WBC (Bld)0.5 %Normal0.0-1.0UnMount St. Mary HospitalComment on above:Performed By: #### [id number] ####[facility] ([facility]ANNER)[address] [place] [address] Lymphocytes (Bld) [#/Vol]0.80 10*3/uLLow1.20-4.00UnMount St. Mary HospitalComment on above:Performed By: #### [id number] ####[facility] ([facility])[address] [place], [place] [address]Etdxcdlfaac/100 WBC (Bld)20.4 %Normal 20.0-45.0UnMount St. Mary HospitalComment on above:Performed By: #### [id number] ####[facility] (AKER)[address] [place], [place] [address]XIQ (RBC) [Entitic mass]28.9 yeRgywwi73.0-33.0UnMount St. Mary Hospital Comment on above:Performed By: #### [id number] ####[facility] (BEAKER)[address] [place], [place] [address]XKI (RBC) [Entitic vol]88.4 pTFfxbzm11.0-98.0 [facility] CenterComment on above:Performed By: #### [id number] ####[facility] (BEAKER)[address] [place], [place] [address]Etwvvehaf (Bld) [#/Vol]0.44 10*3/uLNormal0.10-1.00UnMount St. Mary HospitalComment on above:Performed By: #### [id number] ####[facility] (BEAKER)[address] [place] [address]Ryvrvnouk/100 WBC (Bld)11.2 %Normal5.0-12.0UnMount St. Mary HospitalComment on above:Performed By: #### [id number] ####[facility] (BEAKER)[address] [address]Xdtiooummqb (Bld) [#/Vol] 2.45 10*3/uLNormal1.60-7.60UnMount St. Mary HospitalComment on above: Performed By: #### [id number] ####[facility] (AKER)[address] [address]Dnvshrhnira/100 WBC (Bld)62.5 %Cevpjj91.0-72.0UnMount St. Mary HospitalComment on above:Performed By: #### [id number] ####[facility] ([facility])[address] [place] [address]LCAV (PER 100 WBCS) BY AUTOMATED COUNT0.0 %Moppvf2UwdxrbxnjfMount St. Mary HospitalComment on above: Performed By: #### [id number] ####[facility] ([facility])[address] [place] [address]ABFASRCZC (10*3/UL) IN BLOOD AUTOMATED [id number] 10*3/uLNormal 150-400UnMount St. Mary HospitalComment on above:Performed By: #### [id number] ####[facility] (BEAKER)[address] [place] [address]KOI (Bld) [#/Vol]2.94 10*6/uLLow3.80-5.70UnMount St. Mary HospitalComment on above:Performed By: #### [id number] ####[facility] (BEAKER)[address] [place] [address]NRT (Bld) [#/Vol]3.92 10*3/uLLow4.00-10.60UnMount St. Mary HospitalComment on above:Performed By: #### [id number] ####[facility] (BEAKER)[address] [place], [place] [address]EYRXVIAIoc 06-22-[address] John Medical CenterPHOSPHORUSon 06-22-2025 Magnesium [Mass/Vol]2.6 mg/dLNormal2.5-5.0UnMount St. Mary Hospital Comment on above:Performed By: #### [id number] ####[facility] ([facility])[address] [place], [place] [address]TYRA GLUCOSE METER UNSOLICITED RESULTSon 06-22-2025 Glucose [Mass/Vol]129 mg/dVJjbn37-779DgqtaikqwyMount St. Mary HospitalComment on above:Order Comment: Waived Testing in the ED is performed under the ED CLIA certificate #[id number].Result Comment: [id number] By: #### [id number] ####[facility] ([facility])[address] [place], [place] [address]Paghxbc [Mass/Vol]98 mg/nERcrbzy32-891DdlcqnlvkdMount St. Mary HospitalComment on above:Order Comment: Waived Testing in the ED is performed under the ED CLIA certificate #[id number].Result Comment: [id number] By: #### [id number] ####[facility] ([facility])[address] [place], [place] [address]Hywotzu [Mass/Vol]122 mg/wOZlvf81-388VtucqvnainMount St. Mary HospitalComment on above:Order Comment: Waived Testing in the ED is performed under the ED CLIA certificate #[id number].Result Comment: [id number] By: #### [id number] ####[facility] ([facility])[address] [place], [place] [address]MQMJB CULTURE, ROUTINEon 97-80-4993Mpymomoa [Susc]4 ug/mlSusceptibleUnMount St. Mary HospitalComment on above:Performed By: #### [id number] ####[facility] ([facility])[address] [place], [place] [address]Zapqagmfmfgfk [Susc]0.5 ug/ml SusceptibleUnMount St. Mary HospitalComment on above:Performed By: #### [id number] ####[facility] (BEAKER)[address] [place] [address] levoFLOXacin [Susc]1 ug/mlSusceptibleUnMount St. Mary HospitalComment on above:Performed By: #### [id number] ####[facility] (BEAKER)[address] [place], [place] [address]Laeuimwmo [Susc]1 ug/mlSusceptibleUnMount St. Mary HospitalComment on above:Performed By: #### [id number] ####[facility] ([facility])[address] [place], [place] [address]Mkrntoxmteou+Tazobactam [Susc]05/[address] HospitalComment on above:Performed By: #### [id number] ####[facility] ([facility])[address] [place] [address] Tobramycin [Susc]<=2SusceptibleUnMount St. Mary HospitalComment on above:Performed By: #### [id number] ####[facility] ([facility])[address] [place], [place] [address]tn [id number] of [facility] BASIC METABOLIC PANELon 39-07-2683Vqgqy gap [Moles/Vol]11 mmol/LNormal7-20 [facility] CenterComment on above:Performed By: #### [id number] ####[facility] (BEAKER)[address] [place], [place] [address]Mjmnume [Mass/Vol]7.9 mg/dLLow8.6-10.3UnMount St. Mary HospitalComment on above:Performed By: #### [id number] ####[facility] (BEAKER)[address] [place], [place] [address]Ktqcmxoy [Moles/Vol]110 mmol/CYmdw25-924WuxinbudamMount St. Mary HospitalComment on above:Performed By: #### [id number] ####[facility] (BEAKER)[address] [place], [place] [address]PY4 [Moles/Vol]21 mmol/ZMsvkyo63-87 [facility] CenterComment on above:Performed By: #### [id number] ####[facility] ([facility])[address] [place] [address]Kulhvufuev [Mass/Vol]0.56 mg/dLLow0.60-1.30UnMount St. Mary HospitalComment on above:Performed By: #### [id number] ####[facility] ([facility])[address] [place] [address]VOKOGZQAYE FILTRATION RATE ML/MIN/1.73 SQ M.POXOYQOOC330.6 mL/min/1.73m*2Normal>60.0UnMount St. Mary HospitalComment on above: Result Comment: [facility]???s estimated glomerular filtration rate (eGFR) [...] potential consequences that do not disproportionately affect anyone group of individuals.Performed By: #### [id number] ####[facility] ([facility])[address] [place] [address]Lzljbjl [Mass/Vol]126 mg/oNYimr06-292WlwlilmgdyMount St. Mary HospitalComment on above:Performed By: #### [id number] ####[facility] ([facility])[address] [place] [address]Wizjufaus [Moles/Vol]3.6 mmol/L Normal3.5-5.1UnMount St. Mary HospitalComment on above:Performed By: #### [id number] ####[facility] ([facility])[address] [place] [address] Performed By: #### [id number] ####[facility] ([facility])[address] [place] [address]Srgkvm [Moles/Vol]138 mmol/JXxquxz689-764HhnbcoyqcnMount St. Mary HospitalComment on above:Performed By: #### [id number] ####[facility] ([facility])[address] [place], [place] [address]Ioip nitrogen [Mass/Vol]10 mg/dLNormal 7-25UnMount St. Mary HospitalComment on above:Performed By: #### [id number] ####[facility] ([facility])[address] [place], [place] [address]NKVE NITROGEN/CREATININE (MASS RATIO) IN SER/PLAS17.9NormalUniversUniversity Hospitals St. John Medical CenterComment on above:Performed By: #### [id number] ####[facility] ([facility])[address] [place], [place] [address]Ylmrw gap [Moles/Vol]11 mmol/LNormal 7-20UnMount St. Mary HospitalComment on above:Performed By: #### [id number] ####[facility] ([facility])[address] [place], [place] [address]Xsxtluq [Mass/Vol]7.9 mg/dLLow8.6-10.3UnMount St. Mary HospitalComment on above:Performed By: #### [id number] ####[facility] ([facility])[address] [place], [place] [address]Rgxlwmqq [Moles/Vol]110 mmol/LGjuk39-765QshvsfsvdwMount St. Mary HospitalComment on above:Performed By: #### [id number] ####[facility] ([facility])[address] [place], [place] [address]OR9 [Moles/Vol]20 mmol/YCzo84-83 [facility] CenterComment on above:Performed By: #### [id number] ####[facility] ([facility])[address] [place], [place] [address]Jlucljqqwz [Mass/Vol]0.53 mg/dLLow0.60-1.30UnMount St. Mary HospitalComment on above:Performed By: #### [id number] ####[facility] ([facility])[address] [place], [place] [address]NELWHSVCMF FILTRATION RATE ML/MIN/1.73 SQ M.RCDDAQRVH447.9 mL/min/1.73m*2Normal>60.0UnMount St. Mary HospitalComment on above: Result Comment: [facility]???s estimated glomerular filtration rate (eGFR) [...] potential consequences that do not disproportionately affect anyone group of individuals.Performed By: #### [id number] ####[facility] ([facility])[address] [place], [place] [address]Sszkkjh [Mass/Vol]119 mg/hEUaxj60-886GyvjgsvoimMount St. Mary HospitalComment on above:Performed By: #### [id number] ####[facility] ([facility])[address] [place], [place] [address]Yavwsntso [Moles/Vol]3.1 mmol/L Low3.5-5.1UnMount St. Mary HospitalComment on above:Performed By: #### [id number] ####[facility] ([facility])[address] [place], [place] [address]Xmfvud [Moles/Vol]138 mmol/VTkgxeq134-752FqmfrcxymqMount St. Mary HospitalComment on above:Performed By: #### [id number] ####[facility] ([facility])[address] [place], [place] [address]Czgo nitrogen [Mass/Vol]9 mg/dLNormal7-25UnMount St. Mary HospitalComment on above:Performed By: #### [id number] ####[facility] ([facility])[address] [place], [place] [address]HDXV NITROGEN/CREATININE (MASS RATIO) IN SER/PLAS17.0NormalUniversUniversity Hospitals St. John Medical CenterComment on above: Performed By: #### [id number] ####[facility] ([facility])[address] [place], [place] [address]WQU WITH AUTO DIFFERENTIALon 00-15-1769Wfszrpmsq (Bld) [#/Vol]0.02 10*3/uLNormal0.00-0.20UnMount St. Mary HospitalComment on above: Performed By: #### [id number] ####[facility] ([facility])[address] [place], [place] [address]Jrgeupzjl/100 WBC (Bld)0.4 %Normal0.0-1.0UnMount St. Mary HospitalComment on above:Performed By: #### [id number] ####[facility] ([facility])[address] [place], [place] [address]Dudkdyqktmg (Bld) [#/Vol]0.20 10*3/uL Normal0.00-0.50UnMount St. Mary HospitalComment on above:Performed By: #### [id number] ####[facility] ([facility])[address] [place] [address] Eosinophils/100 WBC (Bld)3.7 %Normal0.0-6.0UnMount St. Mary Hospital Comment on above:Performed By: #### [id number] ####[facility] ([facility])[address] [place], [place] [address]Vjhgelkstqm distribution width (RBC) [Ratio]15.5 % High11.5-15.0UnMount St. Mary HospitalComment on above:Performed By: #### [id number] ####[facility] ([facility])[address] [place] [address] ERYTHROCYTE MEAN CORPUSCULAR HEMOGLOBIN CONCENTRATION (G/DL) BY CHAZNUVWH45.7 g/hYQqvunb02.0-35.0UnMount St[address] Mary HospitalComment on above:Performed By: #### [id number] ####[facility] ([facility])[address] [place], [place] [address]Iryctzykkf (Bld) [Volume fraction]28.2 %Low36.0-50.0UnMount St. Mary HospitalComment on above:Performed By: #### [id number] ####[facility] ([facility])[address] [place], [place] [address]Hsmmakyzhy (Bld) [Mass/Vol]9.5 g/dLLow 12.0-17.0UnMount St. Mary HospitalComment on above:Performed By: #### [id number] ####[facility] ([facility])[address] [place], [place] [address]Rqhpvepj granulocytes (Bld) [#/Vol]0.03 10*3/uLNormal0.00-0.20UnMount St. Mary HospitalComment on above:Performed By: #### [id number] ####[facility] ([facility])[address] [place], [place] [address]Puffyamx granulocytes/100 WBC (Bld)0.6 %Normal0.0-1.0UnMount St. Mary HospitalComment on above:Performed By: #### [id number] ####[facility] ([facility])[address] [place] [address] Lymphocytes (Bld) [#/Vol]0.82 10*3/uLLow1.20-4.00[facility] CenterComment on above:Performed By: #### [id number] ####[facility] ([facility])[address] [place], [place] [address]Rafdlhniytw/100 WBC (Bld)15.3 %Low 20.0-45.0UnMount St. Mary HospitalComment on above:Performed By: #### [id number] ####[facility] ([facility])[address] [place], [place] [address]UQE (RBC) [Entitic mass]29.2 wyJkomzw71.0-33.0UnMount St. Mary Hospital Comment on above:Performed By: #### [id number] ####[facility] (BEAKER)[address] [place], [place] [address]UVO (RBC) [Entitic vol]86.8 aOHwjgve59.0-98.0 [facility] CenterComment on above:Performed By: #### [id number] ####[facility] ([facility])[address] [place] [address]Yfdxirnza (Bld) [#/Vol]0.51 10*3/uLNormal0.10-1.00UnMount St. Mary HospitalComment on above:Performed By: #### [id number] ####[facility] ([facility])[address] [place] [address]Jooeonobu/100 WBC (Bld)9.5 %Normal5.0-12.0UnMount St. Mary HospitalComment on above:Performed By: #### [id number] ####[facility] ([facility])[address] [place] [address]Wdipkrphkux (Bld) [#/Vol] 3.77 10*3/uLNormal1.60-7.60UnMount St. Mary HospitalComment on above: Performed By: #### [id number] ####[facility] ([facility])[address] [place] [address]Lggtyihovfu/100 WBC (Bld)70.5 %Dcwigx28.0-72.0UnMount St[address] Mary HospitalComment on above:Performed By: #### [id number] ####[facility] ([facility])[address] [place] [address]WMHX (PER 100 WBCS) BY AUTOMATED COUNT0.0 %Nbgset3DnagkohyldMount St. Mary HospitalComment on above: Performed By: #### [id number] ####[facility] ([facility])[address] [place], [place] [address]FXFWNDYUJ (10*3/UL) IN BLOOD AUTOMATED [id number] 10*3/uLNormal 150-400UnMount St. Mary HospitalComment on above:Performed By: #### [id number] ####[facility] ([facility])[address] [place], [place] [address]NXF (Bld) [#/Vol]3.25 10*6/uLLow3.80-5.70UnMount St. Mary HospitalComment on above:Performed By: #### [id number] ####[facility] ([facility])[address] [place], [place] [address]VHZ (Bld) [#/Vol]5.35 10*3/uLNormal4.00-10.60UnMount St. Mary HospitalComment on above:Performed By: #### [id number] ####[facility] ([facility])[address] [place], [place] [address]QFPAZGLik 06-21-2025 CONSULTNormalUniversity of Methodist Specialty And Transplant HospitalCONSULTNormalUniversity Aultman HospitalMAGNESIUMon 45-62-7710Olcpdsten [Mass/Vol]2.0 mg/dLNormal 1.9-2.7UnMount St. Mary HospitalComment on above:Performed By: #### [id number] ####[facility] ([facility])[address] [place] [address] PHOSPHORUSon 48-05-9761Wvnbiheqb [Mass/Vol]1.4 mg/dLLow2.5-5.0UnMount St. Mary HospitalComment on above:Performed By: #### [id number] ####[facility] ([facility])[address] [place], [place] [address]ZLAJ GLUCOSE METER UNSOLICITED RESULTSon 73-14-7342Nlvrwti [Mass/Vol]119 mg/fKKfuk47-263QtrklmvuqrMount St. Mary HospitalComment on above:Order Comment: Waived Testing in the ED is performed under the ED CLIA certificate #[id number].Result Comment: [email or web address] Performed By: #### [id number] ####[facility] ([facility])[address] [place], [place] [address]Daamujq [Mass/Vol]127 mg/wYRysu24-734MsaipvwsmbMount St. Mary HospitalComment on above:Order Comment: Waived Testing in the ED is performed under the ED CLIA certificate #[id number].Result Comment: [email or web address] Performed By: #### [id number] ####[facility] (BEAKER)[address] [place], [place] [address]Jphpwcg [Mass/Vol]136 mg/fLQxcd06-145GvnpikztiyMount St. Mary HospitalComment on above:Order Comment: Waived Testing in the ED is performed under the ED CLIA certificate #[id number].Result Comment: Performed By: #### [id number] ####[facility] (BEAKER)[address] [place], [place] [address]Bmvkkiw [Mass/Vol]110 mg/eKXabm32-429ZqpclwxldcMount St. Mary HospitalComment on above:Order Comment: Waived Testing in the ED is performed under the ED CLIA certificate #[id number].Result Comment: [email or web address] Performed By: #### [id number] ####[facility] ([facility])[address] [place], [place] [address]KMWMJ METABOLIC PANELon 24-59-4205Tbzcg gap [Moles/Vol]9 mmol/LNormal7-20UnMount St. Mary HospitalComment on above:Performed By: #### [id number] ####[facility] (BEAKER)[address] [place] [address] Calcium [Mass/Vol]8.0 mg/dLLow8.6-10.3UnMount St. Mary HospitalComment on above:Performed By: #### [id number] ####[facility] (BEAKER)[address] [place], [place] [address]Mfjlcron [Moles/Vol]110 mmol/IWnkh10-192TmdxxxxflcMount St. Mary HospitalComment on above:Performed By: #### [id number] ####[facility] (BEAKER)[address] [place], [place] [address]TT4 [Moles/Vol]23 mmol/NFayjqt94-71 [facility] CenterComment on above:Performed By: #### [id number] ####[facility] (BEAKER)[address] [place], [place] [address]Gezkqjzdpo [Mass/Vol]0.58 mg/dLLow0.60-1.30UnMount St. Mary HospitalComment on above:Performed By: #### [id number] ####[facility] ([facility])[address] [place] [address]CXKCBNMHST FILTRATION RATE ML/MIN/1.73 SQ M.HQZLCCYOE95.7 mL/min/1.73m*2Normal>60.0UnMount St[address] Mary HospitalComment on above: Result Comment: [facility]???s estimated glomerular filtration rate (eGFR) [...] potential consequences that do not disproportionately affect anyone group of individuals.Performed By: #### [id number] ####[facility] ([facility])[address] [place] [address]Wxsakda [Mass/Vol]112 mg/bBCkgu52-122WllmpcjjzgMount St. Mary HospitalComment on above:Performed By: #### [id number] ####[facility] ([facility])[address] [place] [address]Bopwylxsq [Moles/Vol]2.9 mmol/L Invalid Interpretation Code3.5-5.1UnMount St. Mary HospitalComment on above:Performed By: #### [id number] ####[facility] ([facility])[address] [place] [address]Vqrzpg [Moles/Vol]139 mmol/UHcsjqn964-726GualkokfooMount St. Mary HospitalComment on above:Performed By: #### [id number] ####[facility] ([facility])[address] [place], [place] [address]Xzlx nitrogen [Mass/Vol]12 mg/dLNormal 7-25UnMount St. Mary HospitalComment on above:Performed By: #### [id number] ####[facility] ([facility])[address] [place] [address]OEPH NITROGEN/CREATININE (MASS RATIO) IN SER/PLAS20.7NormalUniversUniversity Hospitals St. John Medical CenterComment on above:Performed By: #### [id number] ####[facility] ([facility])[address] [address]Hzcfk gap [Moles/Vol]9 mmol/LNormal 7-20UnMount St. Mary HospitalComment on above:Performed By: #### [id number] ####[facility] ([facility])[address] [place] [address]Nuajkly [Mass/Vol]7.9 mg/dLLow8.6-10.3UnMount St. Mary HospitalComment on above:Performed By: #### [id number] ####[facility] ([facility])[address] [place] [address]Klfzdxkh [Moles/Vol]109 mmol/WSywc83-728TpwwdypkyvMount St. Mary HospitalComment on above:Performed By: #### [id number] ####[facility] ([facility])[address] [place] [address]CM8 [Moles/Vol]23 mmol/FHasqmb65-87 [facility] CenterComment on above:Performed By: #### [id number] ####[facility] ([facility])[address] [place] [address]Pmgqzuzmbc [Mass/Vol]0.57 mg/dLLow0.60-1.30UnMount St. Mary HospitalComment on above:Performed By: #### [id number] ####[facility] ([facility])[address] [place] [address]IPVPORJRXJ FILTRATION RATE ML/MIN/1.73 SQ M.KSKRXLLUW062.2 mL/min/1.73m*2Normal>60.0UnMount St[address] Mary HospitalComment on above: Result Comment: [facility]???s estimated glomerular filtration rate (eGFR) [...] potential consequences that do not disproportionately affect anyone group of individuals.Performed By: #### [id number] ####[facility] ([facility])[address] [place], [place] [address]Zwqdxsf [Mass/Vol]108 mg/fIPbga04-812JscmvyjinrMount St. Mary HospitalComment on above:Performed By: #### [id number] ####[facility] ([facility])[address] [place], [place] [address]Hwunommxh [Moles/Vol]2.9 mmol/L Invalid Interpretation Code3.5-5.1UnMount St. Mary HospitalComment on above:Performed By: #### [id number] ####[facility] ([facility])[address] [place], [place] [address]Dlwgnc [Moles/Vol]138 mmol/WSyzqed466-192UywddahjvmMount St. Mary HospitalComment on above:Performed By: #### [id number] ####[facility] ([facility])[address] [place], [place] [address]Dnkh nitrogen [Mass/Vol]13 mg/dLNormal 7-25UnMount St. Mary HospitalComment on above:Performed By: #### [id number] ####[facility] ([facility])[address], [place] [address]BNJR NITROGEN/CREATININE (MASS RATIO) IN SER/PLAS22.8NormalUniversUniversity Hospitals St. John Medical CenterComment on above:Performed By: #### [id number] ####[facility] ([facility])[address], [place] [address]OTUqo 09-71-6550Wfmsruzemao distribution width (RBC) [Ratio]15.7 %High11.5-15.0UnMount St. Mary HospitalComment on above:Performed By: #### [id number] ####[facility] ([facility])[address], [place] [address]KGAJHLKCIHR MEAN CORPUSCULAR HEMOGLOBIN CONCENTRATION (G/DL) BY VPBBCGEQD61.7 g/tUCwarjk41.0-35.0UnMount St. Mary HospitalComment on above:Performed By: #### [id number] ####[facility] ([facility])[address] [place] [address]Ybmehdfryv (Bld) [Volume fraction]27.9 %Low36.0-50.0UnMount St. Mary HospitalComment on above: Performed By: #### [id number] ####[facility] ([facility])[address] [place], [place] [address]Jztsnaygdh (Bld) [Mass/Vol]9.4 g/dLLow12.0-17.0UnMount St. Mary HospitalComment on above:Performed By: #### [id number] ####[facility] ([facility])[address] [place] [address]KGDWDWXU PLATELET FRACTION %13.0 %High0.8-6.3UnMount St. Mary HospitalComment on above: Performed By: #### [id number] ####[facility] ([facility])[address] [place] [address]CWO (RBC) [Entitic mass]28.8 emRswpma94.0-33.0UnMount St. Mary HospitalComment on above:Performed By: #### [id number] ####[facility] ([facility])[address] [place] [address]FXN (RBC) [Entitic vol] 85.6 kPLnznke92.0-98.0UnMount St. Mary HospitalComment on above: Performed By: #### [id number] ####[facility] ([facility])[address] [place] [address]HPTYTXWGM (10*3/UL) IN BLOOD AUTOMATED [id number] 10*3/uLNormal 150-400UnMount St. Mary HospitalComment on above:Performed By: #### [id number] ####[facility] ([facility])[address] [place] [address]JAG (Bld) [#/Vol]3.26 10*6/uLLow3.80-5.70UnMount St. Mary HospitalComment on above:Performed By: #### [id number] ####[facility] ([facility])[address] [place] [address]HYU (Bld) [#/Vol]5.71 10*3/uLNormal4.00-10.60UnMount St. Mary HospitalComment on above:Performed By: #### [id number] ####[facility] ([facility])[address] [place] [address]NS ABDOMEN PELVIS WO IV CONTRASTon 01-65-8737HK ABDOMEN PELVIS WO IV CONTRASTInvalid Interpretation Code [facility] CenterHEMOGLOBIN AND HEMATOCRIT, BLOODon 06-20-2025 Hematocrit (Bld) [Volume fraction]26.8 %Low36.0-50.0UnMount St. Mary HospitalComment on above:Performed By: #### [id number] ####[facility] ([facility])[address] [place] [address]Dczauiathv (Bld) [Mass/Vol]9.2 g/dLLow 12.0-17.0UnMount St. Mary HospitalComment on above:Performed By: #### [id number] ####[facility] ([facility])[address] [place] [address]PIFYKEQZH on 48-68-5171Tsvsnbnum [Mass/Vol]2.2 mg/dLNormal1.9-2.7UnMount St. Mary HospitalComment on above:Performed By: #### [id number] ####[facility] ([facility])[address] [place] [address]Yhkyhdbmk [Mass/Vol]1.8 mg/dLLow 1.9-2.7UnMount St. Mary HospitalComment on above:Performed By: #### [id number] ####[facility] ([facility])[address] [place] [address]JJRI GLUCOSE METER UNSOLICITED RESULTSon 24-29-4111Pdtqiru [Mass/Vol]127 mg/dLHigh 70-105UnMount St. Mary HospitalComment on above:Order Comment: Waived Testing in the ED is performed under the ED CLIA certificate #[id number].Result Comment: oyoderPerformed By: #### [id number] ####[facility] ([facility])[address] [place], [place] [address]Hfieyxa [Mass/Vol]124 mg/yZElbb13-674ZqanexrobmMount St. Mary HospitalComment on above:Order Comment: Waived Testing in the ED is performed under the ED CLIA certificate #[id number].Result Comment: jeades Performed By: #### [id number] ####[facility] ([facility])[address] [place], [place] [address]Rpqiehq [Mass/Vol]130 mg/mKFpec09-258LqnzhxiuhnMount St. Mary HospitalComment on above:Order Comment: Waived Testing in the ED is performed under the ED CLIA certificate #[id number].Result Comment: jeades Performed By: #### [id number] ####[facility] ([facility])[address] [place], [place] [address]Pkfdfpn [Mass/Vol]118 mg/fZGocs98-817HdznpjtcncMount St. Mary HospitalComment on above:Order Comment: Waived Testing in the ED is performed under the ED CLIA certificate #[id number].Result Comment: [email or web address] Performed By: #### [id number] ####[facility] ([facility])[address] [place], [place] [address]Aurfftm [Mass/Vol]108 mg/pYBbwb12-894HpffkbnlmqMount St. Mary HospitalComment on above:Order Comment: Waived Testing in the ED is performed under the ED CLIA certificate #[id number].Result Comment: [email or web address] Performed By: #### [id number] ####[facility] ([facility])[address] [place], [place] [address]TTRBFIMFQgj 03-60-9252Mcrijadzi [Moles/Vol]3.3 mmol/LLow 3.5-5.1UnMount St. Mary HospitalComment on above:Performed By: #### [id number] ####[facility] ([facility])[address] [place], [place] [address]CLDER METABOLIC PANELon 91-54-0482Clmdl gap [Moles/Vol]9 mmol/LNormal7-20UnMount St. Mary HospitalComment on above:Performed By: #### [id number] ####[facility] ([facility])[address] [place], [place] [address]Efqwwem [Mass/Vol]7.8 mg/dLLow8.6-10.3UnMount St. Mary HospitalComment on above:Performed By: #### [id number] ####[facility] ([facility])[address] [place] [address] Chloride [Moles/Vol]110 mmol/OCjfd90-928FvncrkhosxMount St. Mary Hospital Comment on above:Performed By: #### [id number] ####[facility] ([facility])[address] [place], [place] [address]ZF0 [Moles/Vol]23 mmol/DNytfgn91-74EvtwmxuryzMount St. Mary HospitalComment on above:Performed By: #### [id number] ####[facility] ([facility])[address] [place], [place] [address]Geuyoinnsz [Mass/Vol]0.63 mg/dL Normal0.60-1.30UnMount St. Mary HospitalComment on above:Performed By: #### [id number] ####[facility] ([facility])[address] [place] [address] GLOMERULAR FILTRATION RATE ML/MIN/1.73 SQ M.UZSPTLUKL93.8 mL/min/1.73m*2Normal >60.0UnMount St. Mary HospitalComment on above:Result Comment: [facility]???s estimated glomerular filtration rate (eG FR) will no longer include consideration of race [...] potential consequences that do not disproportionately affect anyone group of individuals. Performed By: #### [id number] ####[facility] ([facility])[address] [place], [place] [address]Xbiwrdq [Mass/Vol]113 mg/nSHvtd24-749RxpfghvofyMount St. Mary HospitalComment on above:Performed By: #### [id number] ####[facility] ([facility])[address] [place], [place] [address]Yahcqfxhn [Moles/Vol]2.8 mmol/LInvalid Interpretation Code3.5-5.1UnMount St. Mary HospitalComment on above: Performed By: #### [id number] ####[facility] ([facility])[address] [place], [place] [address]Mgnmyy [Moles/Vol]139 mmol/AJsyewr880-231GwkjskxiosMount St. Mary HospitalComment on above:Performed By: #### [id number] ####[facility] ([facility])[address] [place], [place] [address]Cfqu nitrogen [Mass/Vol]15 mg/dLNormal 7-25UnMount St. Mary HospitalComment on above:Performed By: #### [id number] ####[facility] ([facility])[address] [place], [place] [address]ZVUR NITROGEN/CREATININE (MASS RATIO) IN SER/PLAS23.8NormalUniversUniversity Hospitals St. John Medical CenterComment on above:Performed By: #### [id number] ####[facility] ([facility])[address] [place], [place] [address]Jxbjk gap [Moles/Vol]9 mmol/LNormal 7-20UnMount St. Mary HospitalComment on above:Performed By: #### [id number] ####[facility] ([facility])[address] [place], [place] [address]Nbodppj [Mass/Vol]7.9 mg/dLLow8.6-10.3UnMount St. Mary HospitalComment on above:Performed By: #### [id number] ####[facility] ([facility])[address] [place], [place] [address]Jgofoibp [Moles/Vol]112 mmol/RThkk94-056PaqmlrznxzMount St. Mary HospitalComment on above:Performed By: #### [id number] ####[facility] ([facility])[address] [place] [address]VV8 [Moles/Vol]25 mmol/LPonhtp99-47 [facility] CenterComment on above:Performed By: #### [id number] ####[facility] ([facility])[address] [place] [place] [address]Kbdcpeinly [Mass/Vol]0.83 mg/dLNormal0.60-1.30UnMount St. Mary HospitalComment on above:Performed By: #### [id number] ####[facility] ([facility])[address] [place] [address]RCTUNHAZHY FILTRATION RATE ML/MIN/1.73 SQ M.YRCGODXDG13.7 mL/min/1.73m*2Normal>60.0UnMount St[address] Mary HospitalComment on above: Result Comment: [facility]???s estimated glomerular filtration rate (eGFR) [...] potential consequences that do not disproportionately affect anyone group of individuals.Performed By: #### [id number] ####[facility] ([facility])[address] [place] [address]Aucehcf [Mass/Vol]107 mg/nRKflw23-481KmkeewgojrMount St. Mary HospitalComment on above:Performed By: #### [id number] ####[facility] ([facility])[address] [place] [address]Ejqirbczx [Moles/Vol]2.8 mmol/L Invalid Interpretation Code3.5-5.1UnMount St. Mary HospitalComment on above:Performed By: #### [id number] ####[facility] ([facility])[address] [place] [address]Aaynay [Moles/Vol]143 mmol/QHhhssl936-398KytvmvuocgMount St. Mary HospitalComment on above:Performed By: #### [id number] ####[facility] ([facility])[address] [place] [address]Otoi nitrogen [Mass/Vol]22 mg/dLNormal 7-25UnMount St. Mary HospitalComment on above:Performed By: #### [id number] ####[facility] ([facility])[address] [place], [place] [address]ARXO NITROGEN/CREATININE (MASS RATIO) IN SER/PLAS26.5NormalUniversUniversity Hospitals St. John Medical CenterComment on above:Performed By: #### [id number] ####[facility] ([facility])[address] [address]TQVpa 59-39-3[address]Szspfnipbjc distribution width (RBC) [Ratio]15.7 %High11.5-15.0UnMount St. Mary HospitalComment on above:Performed By: #### [id number] ####[facility] ([facility])[address] [place], [place] [address]FFJZDXTMKCY MEAN CORPUSCULAR HEMOGLOBIN CONCENTRATION (G/DL) BY TKVPAPWRF51.9 g/wLFrcxkz18.0-35.0UnMount St[address] Mary HospitalComment on above:Performed By: #### [id number] ####[facility] ([facility])[address] [place], [place] [address]Msoqifmuij (Bld) [Volume fraction]24.0 %Low36.0-50.0UnMount St. Mary HospitalComment on above: Performed By: #### [id number] ####[facility] ([facility])[address] [place], [place] [address]Bsxdirspvd (Bld) [Mass/Vol]7.9 g/dLLow12.0-17.0UnMount St[address] Mary HospitalComment on above:Performed By: #### [id number] ####[facility] ([facility])[address] [place] [address]RJXHOUGM PLATELET FRACTION %11.2 %High0.8-6.3UnMount St. Mary HospitalComment on above: Performed By: #### [id number] ####[facility] ([facility])[address] [place] [address]BAK (RBC) [Entitic mass]29.0 reGgjsko85.0-33.0UnMount St[address] Mary HospitalComment on above:Performed By: #### [id number] ####[facility] ([facility])[address] [place] [address]PKV (RBC) [Entitic vol] 88.2 dDBbwpbz97.0-98.0UnMount St[address] Mary HospitalComment on above: Performed By: #### [id number] ####[facility] ([facility])[address] [place] [address]VYSNOIWPP (10*3/UL) IN BLOOD AUTOMATED [id number] 10*3/uLLow 150-400UnMount St. Mary HospitalComment on above:Performed By: #### [id number] ####[facility] ([facility])[address] [place] [address]YME (Bld) [#/Vol]2.72 10*6/uLLow3.80-5.70UnMount St. Mary HospitalComment on above:Performed By: #### [id number] ####[facility] ([facility])[address] [place] [address]SIB (Bld) [#/Vol]6.34 10*3/uLNormal4.00-10.60UnMount St. Mary HospitalComment on above:Performed By: #### [id number] ####[facility] ([facility])[address] [place] [address]HUAVIFEwx 06-19-2025 CONSULTNormalUniversity Aultman HospitalFL UPPER GI WITH KUBon 10-54-6479WV UPPER GI WITH KUBNormalUnMount St. Mary Hospital HEMOGLOBIN AND HEMATOCRIT, BLOODon 54-89-9243Qpewqmkkxu (Bld) [Volume fraction] 26.6 %Low36.0-50.0UnMount St. Mary HospitalComment on above:Performed By: #### [id number] ####[facility] ([facility])[address] [place] [address] Hemoglobin (Bld) [Mass/Vol]8.9 g/dLLow12.0-17.0UnMount St. Mary HospitalComment on above:Performed By: #### [id number] ####[facility] ([facility])[address] [place] [address]PVHBVAMVPwn 33-98-4917Nvtohmyzw [Mass/Vol]2.0 mg/dLNormal1.9-2.7UnMount St. Mary HospitalComment on above:Performed By: #### [id number] ####[facility] ([facility])[address] [place] [address]YOXTYEBVbq 77-42-7706RYYUPPSUVnzbzeTirfyrxbhh of [place] Medical CenterPHOSPHORUSon 61-48-0838Fopyhfxop [Mass/Vol]1.7 mg/dLLow2.5-5.0 [facility] CenterComment on above:Performed By: #### [id number] ####[facility] ([facility])[address] [place] [address]PYUI GLUCOSE METER UNSOLICITED RESULTSon 08-83-1228Oqnofno [Mass/Vol]100 mg/kFEroixw75-158 [facility] CenterComment on above:Order Comment: Waived Testing in the ED is performed under the ED CLIA certificate #[id number].Result Comment: swtrjv0Uwabednjh By: #### [id number] ####[facility] ([facility])[address] [place] [address]Thcpmvs [Mass/Vol]81 mg/qTLzdzly87-122CcthmykcdxMount St. Mary HospitalComment on above:Order Comment: Waived Testing in the ED is performed under the ED CLIA certificate #[id number].Result Comment: [email or web address] Performed By: #### [id number] ####[facility] ([facility])[address] [facility] [address]LIYYAYBSXIXMXpl 96-21-9753SBTRDKG?unknownNormalUniversUniversity Hospitals St. John Medical CenterComment on above:Order Comment: Monitor triglycerides while patient is on propofol. Consult Nutrition if greater than 500 mg/dL.Performed By: #### [id number] ####[facility] ([facility])[address] [place] [address] Magnesium [Mass/Vol]115 mg/dLNormal<150UnMount St. Mary Hospital Comment on above:Order Comment: Monitor triglycerides while patient is on propofol. Consult Nutrition if greater than 500 mg/dL.Performed By: #### [id number] ####[facility] ([facility])[address] [facility] [place], [place] [address]BIIV AND SCREEN on 83-06-2441TZ SCREENNegativeNormBarberton Citizens HospitalniLancaster Municipal HospitalComment on above:Performed By: #### [id number] ####[facility] BLOOD BANK,ABO group Nom (Bld)A NormalUnMount St. Mary HospitalComment on above:Performed By: #### [id number] ####[facility] BLOOD BANK,RH TYPE IN BLOODNegativeNoTrinity Health System West CampusComascension borgess hospital on above:Performed By: #### [id number] ####[facility] BLOOD BANK,ABG UNSOLICITED RESULTSon 51-76-9266Q-TYH9SghnbbVvtpcedwriLancaster Municipal Hospital Comment on above:Result Comment: C^IncalculablePerformed By: #### [id number] ####[facility] RESPIRATORY [id number] [place] [address] USABase excess Calc (Bld) [Moles/Vol]1.3 mmol/LNormal-2.0-3.0UnMount St. Mary HospitalComment on above:Performed By: #### [id number] ####[facility] RESPIRATORY [id number] [place] [address] USACO2 (Bld) [Partial pressure]36 mm[Hg]Hzorvh64-33HkfxsqjgogMount St. Mary HospitalComment on above:Performed By: #### [id number] ####[facility] RESPIRATORY [id number] [place] [address] USAHCO3 (Bld) [Moles/Vol]25.0 mmol/XOtrykh71.0-28.0UnMount St. Mary HospitalComment on above:Performed By: #### [id number] ####[facility] RESPIRATORY [id number] [place] [address] USAOxygen (Bld) [Partial pressure]82 mm[Hg]Ynt71-861KccffaindlMount St. Mary HospitalComment on above:Performed By: #### [id number] ####[facility] RESPIRATORY [id number] [place] [address] USA OXYGEN LITERS PER MINUTE (LPM) IN BLOOD1.[address] Mary HospitalComment on above:Performed By: #### [id number] ####[facility] RESPIRATORY [id number] [place] [address] USAOXYGEN SATURATION (%) IN ARTERIAL BLOOD98.7 %Fgxpni64.0-100.0UnMount St[address] Mary HospitalComment on above: Performed By: #### [id number] ####[facility] RESPIRATORY [id number] [place] [address] USAOXYGENATED HEMOGLOBIN IN ARTERIAL BLOOD96.6 %Qzzxhh42.0-97.0 [facility] CenterComment on above:Performed By: #### [id number] ####[facility] RESPIRATORY [id number] [place] [address] USAPAO2/PAO[address] Mary HospitalComment on above:Result Comment: C^IncalculablePerformed By: #### [id number] ####[facility] RESPIRATORY [id number] [place] [address] USAPF [address]ATIONormal[address] Mary HospitalComment on above:Result Comment: C^IncalculablePerformed By: #### [id number] ####[facility] RESPIRATORY [id number] [place] [address] USAPH OF ARTERIAL BLOOD7.28Rkucjn4.35-7.45UnMount St. Mary HospitalComment on above: Performed By: #### [id number] ####[facility] RESPIRATORY [id number] [place] [address] MXPGEUDTYCNUFY09.0 ???CNormalUnMount [address]. Mary Hospital Comment on above:Performed By: #### [id number] ####[facility] RESPIRATORY [id number] [place] [address] USAANESon 06-86-3877BYWTQzehixKlbtsnllxq of [place] Medical CenterBASIC METABOLIC PANELon 70-73-5973Oyqnr gap [Moles/Vol]9 mmol/L Normal7-20UnMount St. Mary HospitalComment on above:Performed By: #### [id number] ####[facility] ([facility])[address] [place], [place] [address]Igpdoai [Mass/Vol]7.8 mg/dLLow8.6-10.3UnMount St. Mary HospitalComment on above:Performed By: #### [id number] ####[facility] ([facility])[address] [place], [place] [address]Nstybtln [Moles/Vol]117 mmol/FOmib78-206FmsbrxgyukMount St. Mary HospitalComment on above:Performed By: #### [id number] ####[facility] (BEAKER)[address] [place], [place] [address]KC1 [Moles/Vol]22 mmol/TBtfknk84-62 [facility] CenterComment on above:Performed By: #### [id number] ####[facility] ([facility])[address] [place], [place] [address]Kabvqycagu [Mass/Vol]0.80 mg/dLNormal0.60-1.30UnMount St. Mary HospitalComment on above:Performed By: #### [id number] ####[facility] ([facility])[address] [place], [place] [address]GPUVSCVFLS FILTRATION RATE ML/MIN/1.73 SQ M.KGDDBUXWD40.2 mL/min/1.73m*2Normal>60.0UnMount St. Mary HospitalComment on above: Result Comment: [facility]???s estimated glomerular filtration rate (eGFR) [...] potential consequences that do not disproportionately affect anyone group of individuals.Performed By: #### [id number] ####[facility] ([facility])[address] [place], [place] [address]Qmiwquv [Mass/Vol]137 mg/aWIbvv44-024PedhmgrvsvMount St. Mary HospitalComment on above:Performed By: #### [id number] ####[facility] ([facility])[address] [place], [place] [address]Bxmbqmuoc [Moles/Vol]3.3 mmol/L Low3.5-5.1UnMount St. Mary HospitalComment on above:Performed By: #### [id number] ####[facility] ([facility])[address] [place], [place] [address]Lugmoy [Moles/Vol]145 mmol/QWoaxfo852-542KaionhivjuMount St. Mary HospitalComment on above:Performed By: #### [id number] ####[facility] ([facility])[address] [place], [place] [address]Vhkp nitrogen [Mass/Vol]30 mg/dLHigh7-25UnMount St. Mary HospitalComment on above:Performed By: #### [id number] ####[facility] ([facility])[address] [place], [place] [address]WKHO NITROGEN/CREATININE (MASS RATIO) IN SER/PLAS37.5NormalUniversUniversity Hospitals St[address] John Medical CenterComment on above: Performed By: #### [id number] ####[facility] [facility] ([facility])[address] [place], [place] [address]Eksqa gap [Moles/Vol]8 mmol/LNormal7-20UnMount St. Mary HospitalComment on above:Performed By: #### [id number] ####[facility] (BEAKER)[address] [place], [place] [address]Qshakdq [Mass/Vol]7.8 mg/dLLow8.6-10.3 [facility] CenterComment on above:Performed By: #### [id number] ####[facility] ([facility])[address] [place], [place] [address]Snennbaz [Moles/Vol]117 mmol/CXxjv08-249PbdznbxauzMount St. Mary HospitalComment on above:Performed By: #### [id number] ####[facility] ([facility])[address] [place], [place] [address]WE9 [Moles/Vol]22 mmol/YWtrcci85-91JvpwpgivocMount St. Mary HospitalComment on above:Performed By: #### [id number] ####[facility] ([facility])[address] [place], [place] [address]Djyofqvhca [Mass/Vol]0.86 mg/dLNormal 0.60-1.30UnMount St. Mary HospitalComment on above:Performed By: #### [id number] ####[facility] ([facility])[address] [place], [place] [address]DGPQUDJSRH FILTRATION RATE ML/MIN/1.73 SQ M.KLSHFCSKH23.5 mL/min/1.73m*2Normal>60.0 [facility] CenterComment on above:Result Comment: [facility]???s estimated glomerular filtration rate (eG FR) will no longer include consideration of race [...] potential consequences that do not disproportionately affect anyone group of individuals. Performed By: #### [id number] ####[facility] ([facility])[address] [place], [place] [address]Trvpbza [Mass/Vol]147 mg/oMYoje66-744HovbljffdxMount St. Mary HospitalComment on above:Performed By: #### [id number] ####[facility] ([facility])[address] [place] [address]Bbkkhsmib [Moles/Vol]3.3 mmol/LLow 3.5-5.1UnMount St. Mary HospitalComment on above:Performed By: #### [id number] ####[facility] ([facility])[address] [place] [address]Tquwpq [Moles/Vol]144 mmol/QWuuewd875-069HugmazfmumMount St. Mary HospitalComment on above:Performed By: #### [id number] ####[facility] ([facility])[address] [place], [place] [address]Wyfc nitrogen [Mass/Vol]31 mg/dLHigh7-25UnMount St. Mary HospitalComment on above:Performed By: #### [id number] ####[facility] ([facility])[address] [place], [place] [address]KLKP NITROGEN/CREATININE (MASS RATIO) IN SER/PLAS36.0NormalUniversUniversity Hospitals [address]. John Medical CenterComment on above: Performed By: #### [id number] ####[facility] ([facility])[address] [place] [address]IHGzi 82-30-8460Nhmdvouybgg distribution width (RBC) [Ratio]15.5 %High 11.5-15.0UnMount St. Mary HospitalComment on above:Performed By: #### [id number] ####[facility] ([facility])[address] [place] [address] ERYTHROCYTE MEAN CORPUSCULAR HEMOGLOBIN CONCENTRATION (G/DL) BY JFEHOQHCF30.5 g/oCKzktqm62.0-35.0UnMount St. Mary HospitalComment on above:Performed By: #### [id number] ####[facility] ([facility])[address] [place], [place] [address]Mvjgoueqcx (Bld) [Volume fraction]26.3 %Low36.0-50.0UnMount St. Mary HospitalComment on above:Performed By: #### [id number] ####[facility] ([facility])[address] [place] [address]Yojgxxfbzu (Bld) [Mass/Vol]8.8 g/dLLow 12.0-17.0UnMount St. Mary HospitalComment on above:Performed By: #### [id number] ####[facility] ([facility])[address] [place] [address]NRV (RBC) [Entitic mass]29.0 fpQmsgxv10.0-33.0UnMount St. Mary HospitalComment on above:Performed By: #### [id number] ####[facility] ([facility])[address] [place] [address]VFX (RBC) [Entitic vol]86.8 wFUpcjyf59.0-98.0UnMount St. Mary HospitalComment on above:Performed By: #### [id number] ####[facility] ([facility])[address] [place] [address]KAEPXFOHI (10*3/UL) IN BLOOD AUTOMATED GZTPO898 10*3/tTOxe706-101NcwrjdwitvMount St. Mary Hospital Comment on above:Performed By: #### [id number] ####[facility] ([facility])[address] [address]COP (Bld) [#/Vol]3.03 10*6/uLLow3.80-5.70UnMount St. Mary HospitalComment on above:Performed By: #### [id number] ####[facility] ([facility])[address] [place] [address]LVI (Bld) [#/Vol]9.69 10*3/uLNormal4.00-10.60UnMount St. Mary HospitalComment on above: Performed By: #### [id number] ####[facility] ([facility])[address] [place] [address]OFPAXSZCII AND HEMATOCRIT, BLOODon 85-76-2060Ygevvoynmf (Bld) [Volume fraction]24.4 %Low36.0-50.0UnMount St. Mary HospitalComment on above:Performed By: #### [id number] ####[facility] (BE[facility]ER)[address] [place], [place] [address]Pdszamxiqq (Bld) [Mass/Vol]8.0 g/dLLow12.0-17.0UnMount St. Mary HospitalComment on above:Performed By: #### [id number] ####[facility] ([facility]ER)[address] [place], [place] [address]Hgdmohkjrz (Bld) [Volume fraction]26.1 %Low36.0-50.0UnMount St. Mary HospitalComment on above: Performed By: #### [id number] ####[facility] ([facility]ER)[address] [place], [place] [address]Dmedreefpe (Bld) [Mass/Vol]8.6 g/dLLow12.0-17.0UnMount St. Mary HospitalComment on above:Performed By: #### [id number] ####[facility] ([facility]ER)[address] [place], [place] [address]Rmmgadmkez (Bld) [Volume fraction]25.8 %Low36.0-50.0UnMount St. Mary HospitalComment on above: Performed By: #### [id number] ####[facility] ([facility])[address] [place], [place] [address]Ilswnmuzsx (Bld) [Mass/Vol]9.0 g/dLLow12.0-17.0UnMount St. Mary HospitalComment on above:Performed By: #### [id number] ####[facility] ([facility]ER)[address] [place], [place] [address]UJXFSNIYWjt 06-18-2025 Magnesium [Mass/Vol]2.2 mg/dLNormal1.9-2.7UnMount St. Mary Hospital Comment on above:Performed By: #### [id number] ####[facility] (BE[facility]ER)[address] [place], [place] [address]HLGFJUKLLDaa 86-68-1255Hslrriikz [Mass/Vol]2.0 mg/dLLow2.5-5.0UnMount St. Mary HospitalComment on above:Performed By: #### [id number] ####[facility] ([facility])[address] [place] [address] POCT GLUCOSE METER UNSOLICITED RESULTSon 26-84-1653Sjuwygx [Mass/Vol]92 mg/dL Trcrrg25-134NimvshkhxkMount St. Mary HospitalComment on above:Order Comment: Waived Testing in the ED is performed under the ED CLIA certificate #[id number]. Result Comment: gbhqims4Uctdoudpe By: #### [id number] ####[facility] ([facility])[address] [place], [place] [address]Ikvfgyy [Mass/Vol]102 mg/dLNormal 70-105UnMount St. Mary HospitalComment on above:Order Comment: Waived Testing in the ED is performed under the ED CLIA certificate #[id number].Result Comment: ueskqly8Amqnieeuj By: #### [id number] ####[facility] ([facility])[address] [place], [place] [address]Jpnpsiy [Mass/Vol]137 mg/dCOjpz69-306MzbpwowvgtMount St. Mary HospitalComment on above:Order Comment: Waived Testing in the ED is performed under the ED CLIA certificate #[id number].Result Comment: mmolden3 Performed By: #### [id number] ####[facility] ([facility])[address] [place], [place] [address]Qcpdgsc [Mass/Vol]137 mg/kSWjrl12-144FctlerlnfvMount St. Mary HospitalComment on above:Order Comment: Waived Testing in the ED is performed under the ED CLIA certificate #[id number].Result Comment: mmolden3 Performed By: #### [id number] ####[facility] ([facility])[address] [place], [place] [address]Gtwjdhj [Mass/Vol]81 mg/kHPlmdhn09-251JkncxvcttdMount St. Mary HospitalComment on above:Order Comment: Waived Testing in the ED is performed under the ED CLIA certificate #[id number].Result Comment: mmolden3 Performed By: #### [id number] ####[facility] ([facility]ER)[address] [facility] [place] [facility] [place] [address]ki 14-29-257038ZxzebuRvguafsqwz of [facility] Medical CenterABG COMPLETE UNSOLICITED RESULTSon 27-91-2470C-ECV[address] John Medical CenterComment on above:Performed By: #### [id number] ####[facility] RESPIRATORY [id number] [place] [address] USABase excess Calc (Bld) [Moles/Vol]-4.6000 mmol/LLow-2.0-3.0UnMount St. Mary HospitalComment on above:Performed By: #### [id number] ####[facility] RESPIRATORY [id number] [place] [address] USACALCIUM IONIZED, ARTERIAL1.17 mmol/LNormal1.13-1.32 [facility] CenterComment on above:Performed By: #### [id number] ####[facility] RESPIRATORY [id number] [place] [address] [place] CARBOXYHEMOGLOBIN, ARTERIAL1.8 %NormalUnMount St. Mary HospitalComment on above:Performed By: #### [id number] ####[facility] RESPIRATORY [id number] [place] [address] USAChloride [Moles/Vol]117 mmol/QQgzr85-738NjsnrcpryyMount St. Mary HospitalComment on above:Performed By: #### [id number] ####[facility] RESPIRATORY [id number] [place] [address] USACO2 (Bld) [Partial pressure]36 mm[Hg]Gwfqxt37-55RlxsooyxolMount St. Mary HospitalComment on above:Performed By: #### [id number] ####[facility] RESPIRATORY [id number] [place] [address] USADEOXYGENATED HEMOGLOBIN, ARTERIAL0.0 %NormalUnMount St. Mary HospitalComment on above:Performed By: #### [id number] ####[facility] RESPIRATORY [id number] [place] [address] HZHPHQ090.0 %Normal [facility] CenterComment on above:Performed By: #### [id number] ####[facility] RESPIRATORY [id number] [place] [address] USAGlucose [Mass/Vol]120 mg/iFZlgi92-32ByhnxkprqsMount St. Mary HospitalComment on above: Performed By: #### [id number] ####[facility] RESPIRATORY [id number] [place] [address] USAHCO3 (Bld) [Moles/Vol]20.3 mmol/LLow21.0-28.0UnMount St. Mary HospitalComment on above:Performed By: #### [id number] ####[facility] RESPIRATORY [id number] [place] [address] USAHematocrit (Bld) [Volume fraction] 29 %Wjk17-33ArvpdiebghMount St. Mary HospitalComment on above:Performed By: #### [id number] ####[facility] RESPIRATORY [id number] [place] [address] [place] Hemoglobin (Bld) [Mass/Vol]9.6 g/dLNormalUniLancaster Municipal Hospital Comment on above:Performed By: #### [id number] ####[facility] RESPIRATORY [id number] [place] [address] USALACTATE, ARTERIAL0.80 mmol/LNormal0.36-1.39 [facility] CenterComment on above:Performed By: #### [id number] ####[facility] RESPIRATORY [id number] [place] [address] USAMETHEMOGLOBIN, ARTERIAL0.6 %Normal0.0-1.5UnMount St. Mary HospitalComment on above: Performed By: #### [id number] ####[facility] RESPIRATORY [id number] [place] [address] USAOxygen (Bld) [Partial pressure]139 mm[Hg]Imll12-488NevqgudkjwMount St. Mary HospitalComment on above:Performed By: #### [id number] ####[facility] RESPIRATORY [id number] [place] [address] USAOXYGEN SATURATION (%) IN ARTERIAL RFOYQ726.0 %Uepfom89.0-100.0[facility] Comment on above:Performed By: #### [id number] ####[facility] RESPIRATORY [id number] [place] [address] USAOXYGENATED HEMOGLOBIN IN ARTERIAL BLOOD97.7 % High94.0-97.0[facility] Medical CenterComment on above:Performed By: #### [id number] ####[facility] RESPIRATORY [id number] [place] [address] [place] PAO2/PAO20.45 mmHgNoCritical access hospitalniLancaster Municipal HospitalComment on above: Performed By: #### [id number] ####[facility] RESPIRATORY [id number] [place] [address] USAPEEP8 cm V9UPtslsuWuvdxfsfvsLancaster Municipal HospitalComment on above:Performed By: #### [id number] ####[facility] RESPIRATORY [id number] [place] [address] USAPF POPEK831 mmHgNoTrinity Health System West Campus Comment on above:Performed By: #### [id number] ####[facility] RESPIRATORY [id number] [place] [address] USAPH OF ARTERIAL BLOOD7.89Nwzlup7.35-7.45 [facility] CenterComment on above:Performed By: #### [id number] ####[facility] RESPIRATORY [id number] [place] [address] USAPotassium [Moles/Vol]3.2 mmol/LLow3.4-5.2UnMount St. Mary HospitalComment on above:Performed By: #### [id number] ####[facility] RESPIRATORY [id number] [place] [address] USASodium [Moles/Vol]144 mmol/UCcqlue159-873TquvcjcuurMount St. Mary HospitalComment on above:Performed By: #### [id number] ####[facility] RESPIRATORY [id number] [place] [address] OMTEVFDGPMTLQD86.0 ???C NormalUnMount St. Mary HospitalComment on above:Performed By: #### [id number] ####[facility] RESPIRATORY [id number] [place] [address] USATOTAL MINUTE VOLUME9.[address] Mary HospitalComment on above: Performed By: #### [id number] ####[facility] RESPIRATORY [id number] [place] [address] -NBC1XpwpmrEmmtnymrhp [facility]ultman HospitalComment on above: Result Comment: C^IncalculablePerformed By: #### [id number] ####[facility] RESPIRATORY [id number] [place] [address] USABase excess Calc (Bld) [Moles/Vol]- 4.7000 mmol/LLow-2.0-3.0UnMount St. Mary HospitalComment on above: Performed By: #### [id number] ####[facility] RESPIRATORY [id number] [place] [address] USACALCIUM IONIZED, ARTERIAL1.15 mmol/LNormal1.13-1.32UnMount St. Mary HospitalComment on above:Performed By: #### [id number] ####[facility] RESPIRATORY [id number] [place] [address] USACARBOXYHEMOGLOBIN, ARTERIAL1.8 %NormalMain Campus Medical CenterComment on above:Performed By: #### [id number] ####[facility] RESPIRATORY [id number] [place] [address] USAChloride [Moles/Vol]119 mmol/UNurs15-493WgobxjrpcwMount St. Mary Hospital Comment on above:Performed By: #### [id number] ####[facility] RESPIRATORY [id number] [place] [address] USACO2 (Bld) [Partial pressure]37 mm[Hg]Normal 35-45UnMount St. Mary HospitalComment on above:Performed By: #### [id number] ####[facility] RESPIRATORY [id number] [place] [address] [place] DEOXYGENATED HEMOGLOBIN, ARTERIAL0.1 %NormalUnMount St. Mary Hospital Comment on above:Performed By: #### [id number] ####[facility] RESPIRATORY [id number] [place] [address] USAGlucose [Mass/Vol]118 mg/vCCdcf54-87VwhwtlzzpuMount St. Mary HospitalComment on above:Performed By: #### [id number] ####[facility] RESPIRATORY [id number] [place] [address] USAHCO3 (Bld) [Moles/Vol] 20.4 mmol/LLow21.0-28.0UnMount St. Mary HospitalComment on above: Performed By: #### [id number] ####[facility] RESPIRATORY [id number] [place] [address] USAHematocrit (Bld) [Volume fraction]28 %Yrm19-88VpupunnamcMount St. Mary HospitalComment on above:Performed By: #### [id number] ####[facility] RESPIRATORY [id number] [place] [address] USAHemoglobin (Bld) [Mass/Vol]9.4 g/dL NormalUnMount St. Mary HospitalComment on above:Performed By: #### [id number] ####[facility] RESPIRATORY [id number] [place] [address] [place] LACTATE, ARTERIAL0.70 mmol/LNormal0.36-1.39UnMount St. Mary Hospital Comment on above:Performed By: #### [id number] ####[facility] RESPIRATORY [id number] [place] [address] USAMETHEMOGLOBIN, ARTERIAL0.8 %Normal0.0-1.5 [facility] CenterComment on above:Performed By: #### [id number] ####[facility] RESPIRATORY [id number] [place] [address] USAOxygen (Bld) [Partial pressure]202 mm[Hg]Vkvl72-739MbpeeqnygxMount St. Mary HospitalComment on above:Performed By: #### [id number] ####[facility] RESPIRATORY [id number] [place] [address] USAOXYGEN SATURATION (%) IN ARTERIAL BLOOD99.9 %Normal 94.0-100.0UnMount St. Mary HospitalComment on above:Performed By: #### [id number] ####[facility] RESPIRATORY [id number] [place] [address] [place] OXYGENATED HEMOGLOBIN IN ARTERIAL BLOOD97.3 %High94.0-97.0UnMount St. Mary HospitalComment on above:Performed By: #### [id number] ####[facility] RESPIRATORY [id number] [place] [address] USAPAO2/SAK0VfdyuxZansigwflbUniversity Hospitals St. John Medical CenterComment on above:Result Comment: C^IncalculablePerformed By: #### [id number] ####[facility] RESPIRATORY [id number] [place] [address] USAP[address]ATIONormalUn[address] Mary HospitalComment on above:Result Comment: C^IncalculablePerformed By: #### [id number] ####[facility] RESPIRATORY [id number] [place] [address] USAPH OF ARTERIAL BLOOD7.24Bynfys5.35-7.45 [facility] CenterComment on above:Performed By: #### [id number] ####[facility] RESPIRATORY [id number] [place] [address] USAPotassium [Moles/Vol]3.1 mmol/LLow3.4-5.2UnMount St. Mary HospitalComment on above:Performed By: #### [id number] ####[facility] RESPIRATORY [id number] [place] [address] USASodium [Moles/Vol]142 mmol/BJjsrkw263-009GnqprrthetMount St. Mary HospitalComment on above:Performed By: #### [id number] ####[facility] RESPIRATORY [id number] [place] [address] BMIINAHUJNCNJP36.0 ???C NormalUnMount St. Mary HospitalComment on above:Performed By: #### [id number] ####[facility] RESPIRATORY [id number] [place] [address] USAANESon 72-05-5854VBQHEwbedyTzyasptkjl of [place] Medical CenterBASIC METABOLIC PANELon 05-11-6691Uduzz gap [Moles/Vol]11 mmol/LNormal7-20UnMount St. Mary HospitalComment on above:Performed By: #### [id number] ####[facility] ([facility])[address] [place] [address]Fnozrao [Mass/Vol]7.4 mg/dLLow8.6-10.3 [facility] CenterComment on above:Performed By: #### [id number] ####[facility] ([facility])[address] [place], [place] [address]Kzzugyko [Moles/Vol]117 mmol/ASavl06-745EasuzstgsvMount St. Mary HospitalComment on above:Performed By: #### [id number] ####[facility] ([facility])[address]ZW[facility] [place]John [place] [address]VE5 [Moles/Vol]20 mmol/FDei18-66FprugrfdhqMount St. Mary HospitalComment on above:Performed By: #### [id number] ####[facility] ([facility])[address] [place], [place] [address]Ilxnymjzyd [Mass/Vol]0.89 mg/dLNormal 0.60-1.30UnMount St. Mary HospitalComment on above:Performed By: #### [id number] ####[facility] ([facility])[address] [place], [place] [address]TUGGPNCHPN FILTRATION RATE ML/MIN/1.73 SQ M.DCRCYLYLC41.5 mL/min/1.73m*2Normal>60.0 [facility] CenterComment on above:Result Comment: [facility]???s estimated glomerular filtration rate (eG FR) will no longer include consideration of race [...] potential consequences that do not disproportionately affect anyone group of individuals. Performed By: #### [id number] ####[facility] ([facility])[address] [place], [place] [address]Kgronht [Mass/Vol]167 mg/oIAlln21-240GxskujffolMount St. Mary HospitalComment on above:Performed By: #### [id number] ####[facility] ([facility])[address] [place], [place] [address]Fpiayiavz [Moles/Vol]3.2 mmol/LLow 3.5-5.1UnMount St. Mary HospitalComment on above:Performed By: #### [id number] ####[facility] ([facility])[address] [place], [place] [address]Fyyklm [Moles/Vol]145 mmol/KWbxdeo647-857WkioqysqkaMount St. Mary HospitalComment on above:Performed By: #### [id number] ####[facility] ([facility])[address], [place] [address]Mkck nitrogen [Mass/Vol]32 mg/dLHigh7-25UnMount St. Mary HospitalComment on above:Performed By: #### [id number] ####[facility] ([facility])[address] [place], [place] [address]ZUKK NITROGEN/CREATININE (MASS RATIO) IN SER/PLAS36.0NormalUniversUniversity Hospit[address] John Medical CenterComment on above: Performed By: #### [id number] ####[facility] ([facility])[address], [place] [address]Htxzi gap [Moles/Vol]10 mmol/LNormal7-20UnMount St. Mary HospitalComment on above:Performed By: #### [id number] ####[facility] ([facility])[address], [place] [address]Mxzswrn [Mass/Vol]7.5 mg/dLLow8.6-10.3 [facility] CenterComment on above:Performed By: #### [id number] ####[facility] ([facility])[address] [place], [place] [address]Epmmlgrc [Moles/Vol]118 mmol/POwlt06-834PyufudlkcvMount St. Mary HospitalComment on above:Performed By: #### [id number] ####[facility] ([facility])[address] [place] [address]BU6 [Moles/Vol]21 mmol/RFrbazy34-08SwqgjplaqfMount St. Mary HospitalComment on above:Performed By: #### [id number] ####[facility] ([facility])[address] [place] [address]Fomxrylzno [Mass/Vol]0.90 mg/dLNormal 0.60-1.30UnMount St. Mary HospitalComment on above:Performed By: #### [id number] ####[facility] ([facility])[address] [place] [address]UAHLMZBXBT FILTRATION RATE ML/MIN/1.73 SQ M.NHREUHBAA84.5 mL/min/1.73m*2Normal>60.0 [facility] CenterComment on above:Result Comment: [facility]???s estimated glomerular filtration rate (eG FR) will no longer include consideration of race [...] potential consequences that do not disproportionately affect anyone group of individuals. Performed By: #### [id number] ####[facility] ([facility])[address] [place] [address]Mqvurwq [Mass/Vol]152 mg/wGYpoj89-087XdyjnktbybMount St. Mary HospitalComment on above:Performed By: #### [id number] ####[facility] ([facility])[address] [place] [address]Imkdthprp [Moles/Vol]3.9 mmol/LNormal 3.5-5.1UnMount St. Mary HospitalComment on above:Performed By: #### [id number] ####[facility] ([facility] [facility])[address] [place], [place] [address]Olcsxi [Moles/Vol]145 mmol/KPmsasn956-056RquawslxfmMount St. Mary HospitalComment on above:Performed By: #### [id number] ####[facility] ([facility])[address] [place] [address]Jwvx nitrogen [Mass/Vol]33 mg/dLHigh7-25UnMount St. Mary HospitalComment on above:Performed By: #### [id number] ####[facility] ([facility])[address] [place] [address]KSUN NITROGEN/CREATININE (MASS RATIO) IN SER/PLAS36.7NormalUniversUniversity Hospitals St. John Medical CenterComment on above: Performed By: #### [id number] ####[facility] ([facility])[address] [place] [address]Gwmwp gap [Moles/Vol]9 mmol/LNormal7-20UnMount St. Mary HospitalComment on above:Performed By: #### [id number] ####[facility] ([facility])[address] [place], [place] [address]Bxttkgw [Mass/Vol]7.6 mg/dLLow8.6-10.3 [facility] CenterComment on above:Performed By: #### [id number] ####[facility] ([facility])[address] [place], [place] [address]Bxuexvqq [Moles/Vol]119 mmol/REakh59-488DikbludwuiMount St. Mary HospitalComment on above:Performed By: #### [id number] ####[facility] ([facility])[address] [place], [place] [address]ZO6 [Moles/Vol]20 mmol/VWem71-18PuohbowdasMount St. Mary HospitalComment on above:Performed By: #### [id number] ####[facility] ([facility])[address] [place], [place] [address]Ugrxxymafj [Mass/Vol]0.78 mg/dLNormal 0.60-1.30UnMount St. Mary HospitalComment on above:Performed By: #### [id number] ####[facility] (BEAKER)[address] [place] [address]BJOYTGMMOB FILTRATION RATE ML/MIN/1.73 SQ M.ZPOMFUMNC79.7 mL/min/1.73m*2Normal>60.0 [facility] CenterComment on above:Result Comment: [facility]???s estimated glomerular filtration rate (eG FR) will no longer include consideration of race [...] potential consequences that do not disproportionately affect anyone group of individuals. Performed By: #### [id number] ####[facility] ([facility])[address] [place], [place] [address]Jnxsobq [Mass/Vol]128 mg/bCEgtu59-460YtnepcjvnyMount St. Mary HospitalComment on above:Performed By: #### [id number] ####[facility] ([facility])[address] [place], [place] [address]Jhiarwohy [Moles/Vol]3.3 mmol/LLow 3.5-5.1UnMount St. Mary HospitalComment on above:Performed By: #### [id number] ####[facility] ([facility])[address] [place], [place] [address]Sxlmem [Moles/Vol]145 mmol/HQldlfj571-862IcbopoqtkyMount St. Mary HospitalComment on above:Performed By: #### [id number] ####[facility] ([facility])[address] [place], [place] [address]Pqra nitrogen [Mass/Vol]35 mg/dLHigh7-25UnMount St. Mary HospitalComment on above:Performed By: #### [id number] ####[facility] ([facility])[address] [place], [place] [address]ZIMI NITROGEN/CREATININE (MASS RATIO) IN SER/PLAS44.9NormalUniLancaster Municipal HospitalComment on above: Performed By: #### [id number] ####[facility] ([facility])[address] [place] [address]TIESW CULTUREon 10-54-1429Spkbapqm identified Cx Nom (Bld)No growth at 5 daysNormalUniLancaster Municipal HospitalComment on above:Order Comment: From a different site than #1.Performed By: #### [id number] ####[facility] ([facility])[address] [place], [place] [address]Osoqphop identified Cx Nom (Bld)No growth at [address] John Medical CenterComment on above: Performed By: #### [id number] ####[facility] ([facility])[address] [place], [place] [address]BED WITH AUTO DIFFERENTIALon 83-41-6456Vmqqbwqht (Bld) [#/Vol]0.02 10*3/uLNormal0.00-0.20UnMount St. Mary HospitalComment on above:Performed By: #### [id number] ####[facility] ([facility])[address] [place], [place] [address]Iewwsgwnv/100 WBC (Bld)0.2 %Normal0.0-1.0UnMount St. Mary HospitalComment on above:Performed By: #### [id number] ####[facility] ([facility])[address] [place], [place] [address]Ctqcpmrbsbj (Bld) [#/Vol]0.01 10*3/uL Normal0.00-0.50UnMount St. Mary HospitalComment on above:Performed By: #### [id number] ####[facility] ([facility])[address] [place] [address] Eosinophils/100 WBC (Bld)0.1 %Normal0.0-6.0UnMount St. Mary Hospital Comment on above:Performed By: #### [id number] ####[facility] (BEAKER)[address] [place], [place] [address]Lpfoonkeoqf distribution width (RBC) [Ratio]15.0 % Yqyxno30.5-15.0UnMount St. Mary HospitalComment on above:Performed By: #### [id number] ####[facility] ([facility])[address] [place] [address] ERYTHROCYTE MEAN CORPUSCULAR HEMOGLOBIN CONCENTRATION (G/DL) BY ELYCSPBVQ32.6 g/gQWqubbg86.0-35.0UnMount St. Mary HospitalComment on above:Performed By: #### [id number] ####[facility] ([facility])[address] [place], [place] [address]Djivlwcdgb (Bld) [Volume fraction]30.1 %Low36.0-50.0UnMount St. Mary HospitalComment on above:Performed By: #### [id number] ####[facility] ([facility])[address] [place], [place] [address]Hsmknfrdva (Bld) [Mass/Vol]10.1 g/dL Low12.0-17.0UnMount St. Mary HospitalComment on above:Performed By: #### [id number] ####[facility] ([facility])[address] [place] [address] Immature granulocytes (Bld) [#/Vol]0.04 10*3/uLNormal0.00-0.20UnMount St. Mary HospitalComment on above:Performed By: #### [id number] ####[facility] ([facility])[address] [place], [place] [address]Uatwlwso granulocytes/100 WBC (Bld)0.4 %Normal0.0-1.0UnMount St. Mary HospitalComment on above: Performed By: #### [id number] ####[facility] (BEAKER)[address] [place], [place] [address]Nktwhxkexaj (Bld) [#/Vol]0.98 10*3/uLLow1.20-4.00UnMount St. Mary HospitalComment on above:Performed By: #### [id number] ####[facility] (BEAKER)[address] [place], [place] [address]Ntuceowntmy/100 WBC (Bld) 10.8 %Low20.0-45.0UnMount St. Mary HospitalComment on above:Performed By: #### [id number] ####[facility] ([facility])[address] [place] [address]JPU (RBC) [Entitic mass]29.4 fnXaqqfw71.0-33.0UnMount St. Mary HospitalComment on above:Performed By: #### [id number] ####[facility] ([facility])[address] [place], [place] [address]WOS (RBC) [Entitic vol]87.5 fLNormal 82.0-98.0UnMount St. Mary HospitalComment on above:Performed By: #### [id number] ####[facility] ([facility])[address] [place] [address] Monocytes (Bld) [#/Vol]0.50 10*3/uLNormal0.10-1.00UnMount St. Mary HospitalComment on above:Performed By: #### [id number] ####[facility] ([facility])[address] [place], [place] [address]Ucqslgewd/100 WBC (Bld)5.5 %Normal 5.0-12.0UnMount St. Mary HospitalComment on above:Performed By: #### [id number] ####[facility] ([facility])[address] [place] [address] Neutrophils (Bld) [#/Vol]7.50 10*3/uLNormal1.60-7.60UnMount St. Mary HospitalComment on above:Performed By: #### [id number] ####[facility] ([facility])[address] [place], [place] [address]Dhqdqctrrha/100 WBC (Bld)83.0 %High 40.0-72.0UnMount St. Mary HospitalComment on above:Performed By: #### [id number] ####[facility] ([facility])[address] [place], [place] [address]UQEC (PER 100 WBCS) BY AUTOMATED COUNT0.0 %Wdzwnj3RqguqckfduMount St. Mary Hospital Comment on above:Performed By: #### [id number] ####[facility] ([facility])[address] [place] [address]SBEKCCBDL (10*3/UL) IN BLOOD AUTOMATED QKQZN655 10*3/fGCbs436-681OszhyltsupMount St. Mary HospitalComment on above:Performed By: #### [id number] ####[facility] ([facility])[address] [place] [address]TGU (Bld) [#/Vol]3.44 10*6/uLLow3.80-5.70UnMount St. Mary HospitalComment on above:Performed By: #### [id number] ####[facility] ([facility])[address] [place] [address]JDB (Bld) [#/Vol]9.05 10*3/uLNormal 4.00-10.60UnMount St. Mary HospitalComment on above:Performed By: #### [id number] ####[facility] ([facility])[address] [place], [place] [address]JYOLX C on 57-58-9813WIVHM C A1060 liXmiyuc23-43SsofcfykzhMount St. Mary Hospital Comment on above:Performed By: #### EXTEM C ####[facility] RESPIRATORY [id number] [place] [address] USAEXTEM C A2067 qiLaloha10-44NzqofcpvoqMount St. Mary HospitalComment on above:Performed By: #### EXTEM C ####[facility] RESPIRATORY [id number] [place] [address] USAEXTEM C A549 mmMnqovu49-46 [facility] CenterComment on above:Performed By: #### EXTEM C ####[facility] RESPIRATORY [id number] [place] [address] USAEXTEM C CT53 s Sfensk04-42IbhzmwevpdMount St. Mary HospitalComment on above:Performed By: #### EXTEM C ####[facility] RESPIRATORY [id number] [place] [address] [place] EXTEM C YF3082 %Sdbmqu92-011DmvrxnbgmaMount St. Mary HospitalComment on above: Performed By: #### EXTEM C ####[facility] RESPIRATORY [id number] [place] [address] USAEXTEM C MCF69 hqQvslof93-03SqvlraxcokMount St. Mary Hospital Comment on above:Performed By: #### EXTEM C ####[facility] RESPIRATORY [id number] [place] [address] USAEXTEM C ML7 %High0-6UnMount St. Mary HospitalComment on above:Result Comment: CO^Preliminary ResultPerformed By: #### EXTEM C ####[facility] RESPIRATORY [id number] [place] [address] USAFIBTEM Con 51-07-4614XXWKIN C A1019 mmHigh6-17UnMount St. Mary HospitalComment on above:Performed By: #### FIBTEM C ####[facility] RESPIRATORY [id number] [place] [address] USAFIBTEM C A2020 mmHigh6-18UnMount St. Mary HospitalComment on above:Performed By: #### FIBTEM C ####[facility] RESPIRATORY [id number] [place] [address] USAFIBTEM C A517 mmHigh 5-16UnMount St. Mary HospitalComment on above:Performed By: #### FIBTEM C ####[facility] RESPIRATORY [id number] [place] [address] [place] FIBTEM C MCF21 mmHigh6-19UnMount St. Mary HospitalComment on above: Performed By: #### FIBTEM C ####[facility] RESPIRATORY [id number] [place] [address] USAHEMOGLOBIN AND HEMATOCRIT, BLOODon 69-36-1386Afksxfyrxw (Bld) [Volume fraction]28.1 %Low36.0-50.0UnMount St. Mary Hospital Comment on above:Performed By: #### [id number] ####[facility] (BEAKER)[address] [place] [address]Tkukcnyopr (Bld) [Mass/Vol]9.5 g/dLLow12.0-17.0 [facility] Medical CenterComment on above:Performed By: #### [id number] ####[facility] ([facility])[address] [place] [address]LDIDXRA FUNCTION PANELon 66-65-9284Kyniyie [Mass/Vol]3.0 g/dLLow3.5-5.7UnMount St. Mary HospitalComment on above:Performed By: #### [id number] ####[facility] ([facility])[address] [address]JEM [Catalytic activity/Vol]64 U/L Fpjjzh17-324BiolhlmsrmMount St. Mary HospitalComment on above:Performed By: #### [id number] ####[facility] ([facility])[address] [address] [Catalytic activity/Vol]4 U/LLow7-52UnMount St. Mary HospitalComment on above:Performed By: #### [id number] ####[facility] ([facility])[address] [address]JNG [Catalytic activity/Vol]8 U/OSlp65-77LwwgcohkbgMount St. Mary HospitalComment on above:Performed By: #### [id number] ####[facility] ([facility])[address] [place] [address]Zdoemkoif [Mass/Vol]0.8 mg/dLNormal 0.3-1.0UnMount St. Mary HospitalComment on above:Performed By: #### [id number] ####[facility] ([facility])[address] [place] [address]Nmtwphjol [Mass/Vol]0.2 mg/dLNormal0-0.2UnMount St. Mary HospitalComment on above:Performed By: #### [id number] ####[facility] ([facility])[address] [place] [address]Zdtblxe [Mass/Vol]5.2 g/dLLow6.0-8.3UnMount St. Mary HospitalComment on above:Performed By: #### [id number] ####[facility] H[facility] LAB (BEAKER)[address] [place], [place] [address]SICRVI Con 30-64-5866FLDHZM C A1056 mm Btrceo50-07RnudtayqbkMount St. Mary HospitalComment on above:Performed By: #### HEPTEM C ####[facility] RESPIRATORY [id number] [place] [address] [facility] HEPTEM C A2063 gnYtphai17-10ZalgwfyiixMount St. Mary HospitalComment on above: Performed By: #### HEPTEM C ####[facility] RESPIRATORY [id number] [place] [address] USAHEPTEM C A546 moBiaeck15-25SeqncjsktyMount St. Mary HospitalComment on above:Performed By: #### HEPTEM C ####[facility] RESPIRATORY [id number] [place] [address] USAHEPTEM C CT163 rZjdicm326-279 [facility] CenterComment on above:Performed By: #### HEPTEM C ####[facility] RESPIRATORY [id number] [place] [address] USAHEPTEM C MCF64 lsAjqare55-19QdkgpcgnegMount St. Mary HospitalComment on above:Performed By: #### HEPTEM C ####[facility] RESPIRATORY [id number] [place] [address] [facility] HISTOLOGY - TISSUE EXAMon 64-76-2794QEY AP CASE REPORTNormalUniversUniversity Hospitals St. John Medical CenterComment on above:Order Comment: Pre-op diagnosis:Hematemesis, unspecified whether nausea present [K92.0]Marginal ulcer [K28.9]Result Comment: Surgical Pathology Case: [id number] Provider: Roberth Luis MD Collected: 06/17/2025 0017Ordering Location: [facility] Main Operating Room Received: 06/20/2025 0833Pathologist: DANIEL Drewpecimens: A) - Gastric, Gastrojejunostomy B) - Gastric, ROUXPerformed By: #### [id number] ####[facility] (BEAKER)[address] [place] [address]FUX AP CLINICAL INFORMATIONNormal [facility] Campus Medical CenterComment on above:Order Comment: Pre-op diagnosis:Hematemesis, unspecified whether nausea present [K92.0]Marginal ulcer [K28.9]Result Comment: Post-Op RtgaetujoF29.0 - Hematemesis, unspecified whether nausea present [ICD-10-CM]K28.9 - Marginal ulcer [ICD-10-CM]Performed By: #### [id number] ####[facility] (BEAKER)[address] [place], [place] [address]DLX AP GROSS DESCRIPTIONA. Gastric.NormalUnMount St. Mary HospitalComment on above:Order Comment: Pre-op diagnosis:Hematemesis, unspecified whether nausea present [K92.0]Marginal ulcer [K28.9]Result Comment: The specimen is received in formalin labeled Alisia Correa and Gastrojejunostomy. It consists 10.0 x 5.0 x 4.0 cm distorted gastrojejunostomy specimen. One end is blunted and sac-l joselin/ out-pouched and the opposing end is closed [...] inked black and the serosa is inked blue.The serosa is austin-pink and smooth; the mucosa is focally heaped up and glistening with dull plaque-like areas surrounding the transmural defect. Gross photographs are taken and sales representative leather goods sections are submitted as follows:A1-A3: Fibrotic central areaA4: Defect, outpouched endA5: DefectA6: Jejunal margin, en facePeace Ramires Pathologists' Rn Advice ambikaNicmiri Perez Pathologists' AssistantB. Gastric.The specimen is received in formalin labeled Alisia Correa and KENAN. It consists of a 14.3 x 10.2 cm unoriented portion of small bowel received with 2 stapled margins and scant attached adipose tissue. The serosal surface is austin-pink and smooth; the mucosa is austin-pink, folded, andglistening. No lymph nodes are identified. Service Counter Cashier sections are submitted in 3 cassettes with the margins in B1-B2.Peace Ramires, Pathologists' Rn Advice studentPerformed By: #### [id number] ####[facility] ([facility])[address] [place] [address] LAB AP MICROSCOPIC DESCRIPTIONMicroscopic examination performed.NormalUnMount St. Mary HospitalComment on above:Order Comment: Pre-op diagnosis:Hematemesis, unspecified whether nausea present [K92.0]Marginal ulcer [K28.9]Performed By: #### [id number] ####[facility] ([facility])[address] [place], [place] [address]PJY AP REPORT FINAL DIAGNOSIS [facility]OSPITALNormalUniLancaster Municipal HospitalComment on above:Order Comment: Pre-op diagnosis:Hematemesis, unspecified whether nausea present [K92.0]Marginal ulcer [K28.9]Result Comment: A. Labeled gastrojejunostomy :Ulcerated small bowel with acute serositis and fibrovascular adhesions.No malignancy identified.Stapled jejunal resection margin viable.B. Labeled KENAN :Benign small bowel.No activity, celiac disease, dysplasia or malignancy identified.Resection margins viable. at 1636 EDT Performed By: #### [id number] ####[facility] ([facility])[address] [place], [place] [address]XUMUR Con 07-09-8243OYSDM C A1058 fnZlqoet22-07DcduecrowsMain Campus Medical CenterComment on above:Performed By: #### INTEM C ####[facility] RESPIRATORY [id number] [place] [address] USAINTEM C A2064 mmNormal 53-68UnMount St. Mary HospitalComment on above:Performed By: #### INTEM C ####[facility] RESPIRATORY [id number] [place] [address] USAINTEM C A547 clGjzemi14-95LzifmtmwoqMount St. Mary HospitalComment on above: Performed By: #### INTEM C ####[facility] RESPIRATORY [id number] [place] [address] USAINTEM C CT170 cWkwlfw054-211QnjxgfccptMount St. Mary Hospital Comment on above:Performed By: #### INTEM C ####[facility] RESPIRATORY [id number] [place] [address] USAINTEM C KQ4327 %Fhuzws08-992YwdooanbjyMount St. Mary HospitalComment on above:Performed By: #### INTEM C ####[facility] RESPIRATORY [id number] [place] [address] USAINTEM C MCF65 mmNormal 55-70UnMount St. Mary HospitalComment on above:Performed By: #### INTEM C ####[facility] RESPIRATORY [id number] [place] [address] USAINTEM C ML7 %Normal0-7UnMount St. Mary HospitalComment on above:Result Comment: CO^Preliminary ResultPerformed By: #### INTEM C ####[facility] RESPIRATORY [id number] [place] [address] USALACTIC ACID WITH 4 HOUR REFLEXon 17-34-7507CWBITOT (MMOL/L) IN SER/PLAS0.8 mmol/LNormal0.5-2.2UnMount St. Mary HospitalComment on above:Performed By: #### [id number] ####[facility] ([facility])[address] [facility] [place] [address]JPNVEAFPBxi 06-17-2025 Magnesium [Mass/Vol]1.8 mg/dLLow1.9-2.7UnMount St. Mary Hospital Comment on above:Performed By: #### [id number] ####[facility] ([facility])[address] [facility] [place], [place] [address]LNAZQZBQUEtz 04-92-0998Omoiuzeyz [Mass/Vol]2.3 mg/dLLow2.5-5.0UnMount St. Mary HospitalComment on above:Performed By: #### [id number] ####[facility] LAB (BEAKER)[address] [place] [address] POCT GLUCOSE METER UNSOLICITED RESULTSon 30-00-5289Yajxgml [Mass/Vol]103 mg/dL Ddfhsk94-722MjdklmxbhpMain Campus Medical CenterComment on above:Order Comment: Waived Testing in the ED is performed under the ED CLIA certificate #[id number]. Result Comment: yligshn3Zfkjnmzin By: #### [id number] ####[facility] ([facility])[address] [place], [place] [address]Shqwsvn [Mass/Vol]109 mg/mZBblm04-424 [facility] CenterComment on above:Order Comment: Waived Testing in the ED is performed under the ED CLIA certificate #[id number].Result Comment: fzxjsif7Gwnwisukf By: #### [id number] ####[facility] ([facility])[address] [place], [place] [address]Xdksyru [Mass/Vol]83 mg/kKZicfer21-516TevwiquqprMain Campus Medical CenterComment on above:Order Comment: Waived Testing in the ED is performed under the ED CLIA certificate #[id number].Result Comment: tcepek2 Performed By: #### [id number] ####[facility] ([facility])[address] [place], [place] [address]Jibbygn [Mass/Vol]150 mg/bDCfcw77-357JupztugyiwMain Campus Medical CenterComment on above:Order Comment: Waived Testing in the ED is performed under the ED CLIA certificate #[id number].Result Comment: tcepek2 Performed By: #### [id number] ####[facility] LAB (BEAKER)[address] [place], [place] [address]60vq [id number] of [facility] [facility] Aifobk[address] Mary Hospital30NormalUniversUniversity Hospitals St. John Medical CenterABG COMPLETE UNSOLICITED RESULTSon [id number]-FDD2DvmwuqUrzirtosmhUniversity Hospitals St. John Medical CenterComment on above:Result Comment: C^IncalculablePerformed By: #### [id number] ####[facility] RESPIRATORY [id number] [place] [address] USABase excess Calc (Bld) [Moles/Vol]-5.0000 mmol/LLow-2.0-3.0UnMount St. Mary HospitalComment on above:Performed By: #### [id number] ####[facility] RESPIRATORY [id number] [place] [address] USACALCIUM IONIZED, ARTERIAL1.15 mmol/LNormal1.13-1.32UnMount St. Mary HospitalComment on above:Performed By: #### [id number] ####[facility] RESPIRATORY [id number] [place] [address] USACARBOXYHEMOGLOBIN, ARTERIAL1.8 %NormalUnMount St. Mary HospitalComment on above:Performed By: #### [id number] ####[facility] RESPIRATORY [id number] [place] [address] USAChloride [Moles/Vol]118 mmol/VZupg61-096NuftczotkbMount St. Mary HospitalComment on above:Performed By: #### [id number] ####[facility] RESPIRATORY [id number] [place] [address] USACO2 (Bld) [Partial pressure]34 mm[Hg]Koe92-81GumrmupeplMount St. Mary HospitalComment on above:Performed By: #### [id number] ####[facility] RESPIRATORY [id number] [place] [address] USADEOXYGENATED HEMOGLOBIN, ARTERIAL 0.2 %NormalUnMount St. Mary HospitalComment on above:Performed By: #### [id number] ####[facility] RESPIRATORY [id number] [place] [address] [place] Glucose [Mass/Vol]112 mg/uFDgbs60-32LyjgopconmMount St. Mary HospitalComment on above:Performed By: #### [id number] ####[facility] RESPIRATORY [id number] [place] [address] USAHCO3 (Bld) [Moles/Vol]19.7 mmol/LLow21.0-28.0UnMount St. Mary HospitalComment on above:Performed By: #### [id number] ####[facility] RESPIRATORY [id number] [place] [address] USAHematocrit (Bld) [Volume fraction]28 %Hbq54-37JnnjqxbvxsMount St. Mary HospitalComment on above:Performed By: #### [id number] ####[facility] RESPIRATORY [id number] [place] [address] USAHemoglobin (Bld) [Mass/Vol]9.2 g/dLNormalUniversUniversity Hospitals St. John Medical CenterComment on above:Performed By: #### [id number] ####[facility] RESPIRATORY [id number] [place] [address] USALACTATE, ARTERIAL0.60 mmol/LNormal0.36-1.39UnMount St. Mary HospitalComment on above: Performed By: #### [id number] ####[facility] RESPIRATORY [id number] [place] [address] USAMETHEMOGLOBIN, ARTERIAL1.1 %Normal0.0-1.5UnMount St. Mary HospitalComment on above:Performed By: #### [id number] ####[facility] RESPIRATORY [id number] [place] [address] USAOxygen (Bld) [Partial pressure]168 mm[Hg]Iudt35-740FunpymacovMount St. Mary HospitalComment on above:Performed By: #### [id number] ####[facility] RESPIRATORY [id number] [place] [address] USAOXYGEN SATURATION (%) IN ARTERIAL BLOOD99.8 %Wdrrbn02.0-100.0UnMount St. Mary HospitalComment on above:Performed By: #### [id number] ####[facility] RESPIRATORY [id number] [place] [address] USAOXYGENATED HEMOGLOBIN IN ARTERIAL BLOOD97.0 %Khexdq09.0-97.0UnMount St. Mary HospitalComment on above:Performed By: #### [id number] ####[facility] RESPIRATORY [id number] [place] [address] USAPAO2/OBL3SprmfxZesuwnrnpoUniversity Hospitals St. John Medical CenterComment on above:Result Comment: C^IncalculablePerformed By: #### [id number] ####[facility] RESPIRATORY [id number] [place] [address] USAPF RATIONormal [facility] Campus Medical CenterComment on above:Result Comment: C^IncalculablePerformed By: #### [id number] ####[facility] RESPIRATORY [id number] [place] [address] USAPH OF ARTERIAL BLOOD7.43Xciyxn4.35-7.45 [facility] CenterComment on above:Performed By: #### [id number] ####[facility] RESPIRATORY [id number] [place] [address] USAPotassium [Moles/Vol]3.1 mmol/LLow3.4-5.2UnMount St. Mary HospitalComment on above:Performed By: #### [id number] ####[facility] RESPIRATORY [id number] [place] [address] USASodium [Moles/Vol]144 mmol/ANvaeuu435-370OlbqiwhyjiMount St. Mary HospitalComment on above:Performed By: #### [id number] ####[facility] RESPIRATORY [id number] [place] [address] SGHRHQSVNSQYQJ04.0 ???C NormalUnMount St. Mary HospitalComment on above:Performed By: #### [id number] ####[facility] RESPIRATORY [id number] [place] [address] -ADO[address] Mary HospitalComment on above:Result Comment: C^IncalculablePerformed By: #### [id number] ####[facility] RESPIRATORY [id number] [place] [address] USABase excess Calc (Bld) [Moles/Vol]-4.9000 mmol/LLow-2.0-3.0UnMount St. Mary HospitalComment on above:Performed By: #### [id number] ####[facility] RESPIRATORY [id number] [place] [address] USACALCIUM IONIZED, ARTERIAL1.11 mmol/LLow1.13-1.32UnMount St. Mary HospitalComment on above:Performed By: #### [id number] ####[facility] RESPIRATORY [id number] [place] [address] USACARBOXYHEMOGLOBIN, ARTERIAL1.5 % NormalUnMount St. Mary HospitalComment on above:Performed By: #### [id number] ####[facility] RESPIRATORY [id number] [place] [address] [place] Chloride [Moles/Vol]119 mmol/FVydx24-890CtxrepfheoMount St. Mary Hospital Comment on above:Performed By: #### [id number] ####[facility] RESPIRATORY [id number] [place] [address] USACO2 (Bld) [Partial pressure]31 mm[Hg]Ean24-64 [facility] Medical CenterComment on above:Performed By: #### [id number] ####[facility] RESPIRATORY [id number] [place] [address] USADEOXYGENATED HEMOGLOBIN, ARTERIAL0.3 %NormalUnMount St. Mary HospitalComment on above:Performed By: #### [id number] ####[facility] RESPIRATORY [id number] [place] [address] USAGlucose [Mass/Vol]154 mg/xZXfwv17-11ViwladftpiMount St. Mary HospitalComment on above:Performed By: #### [id number] ####[facility] RESPIRATORY [id number] [place] [address] USAHCO3 (Bld) [Moles/Vol]19.2 mmol/L Low21.0-28.0UnMount St. Mary HospitalComment on above:Performed By: #### [id number] ####[facility] RESPIRATORY [id number] [place] [address] [place] Hematocrit (Bld) [Volume fraction]29 %Msu01-13LqzxtyvkdoMount St. Mary HospitalComment on above:Performed By: #### [id number] ####[facility] RESPIRATORY [id number] [place] [address] USAHemoglobin (Bld) [Mass/Vol]9.5 g/dL NormalMain Campus Medical CenterComment on above:Performed By: #### [id number] ####[facility] RESPIRATORY [id number] [place] [address] [place] LACTATE, ARTERIAL0.90 mmol/LNormal0.36-1.39UnMount St. Mary Hospital Comment on above:Performed By: #### [id number] ####[facility] RESPIRATORY [id number] [place] [address] USAMETHEMOGLOBIN, ARTERIAL1.2 %Normal0.0-1.5 [facility] Medical CenterComment on above:Performed By: #### [id number] ####[facility] RESPIRATORY [id number] [place] [address] USAOxygen (Bld) [Partial pressure]167 mm[Hg]Pjdb75-800JybvajmidhMount St. Mary HospitalComment on above:Performed By: #### [id number] ####[facility] RESPIRATORY [id number] [place] [address] USAOXYGEN SATURATION (%) IN ARTERIAL BLOOD99.7 %Normal 94.0-100.0UnMount St. Mary HospitalComment on above:Performed By: #### [id number] ####[facility] RESPIRATORY [id number] [place] [address] [place] OXYGENATED HEMOGLOBIN IN ARTERIAL BLOOD96.9 %Lgizps30.0-97.0UnMount St. Mary HospitalComment on above:Performed By: #### [id number] ####[facility] RESPIRATORY [id number] [place] [address] USAPAO2/UWS0SwpwuyJwmjkytaqp [facility]ultman HospitalComment on above:Result Comment: C^IncalculablePerformed By: #### [id number] ####[facility] RESPIRATORY [id number] [place] [address] US[address]Un[address] Mary HospitalComment on above:Result Comment: C^IncalculablePerformed By: #### [id number] ####[facility] RESPIRATORY [id number] [place] [address] USAPH OF ARTERIAL BLOOD7.84Zpddyy2.35-7.45 [facility] CenterComment on above:Performed By: #### [id number] ####[facility] RESPIRATORY [id number] [place] [address] USAPotassium [Moles/Vol]3.5 mmol/LNormal3.4-5.2UnMount St. Mary HospitalComment on above:Performed By: #### [id number] ####[facility] RESPIRATORY [id number] [place] [address] USASodium [Moles/Vol]142 mmol/RXoekje180-972BiffoxgffbMount St. Mary HospitalComment on above:Performed By: #### [id number] ####[facility] RESPIRATORY [id number] [place] [address] LVYXHXPUICZFOY07.0 ???C NormalUnMount St. Mary HospitalComment on above:Performed By: #### [id number] ####[facility] RESPIRATORY [id number] [place] [address] -ADO2 [address] John Medical CenterComment on above:Performed By: #### [id number] ####[facility] RESPIRATORY [id number] [place] [address] [place] Base excess Calc (Bld) [Moles/Vol]-2.7000 mmol/LLow-2.0-3.0UnMount St. Mary HospitalComment on above:Performed By: #### [id number] ####[facility] RESPIRATORY [id number] [place] [address] USACALCIUM IONIZED, ARTERIAL1.18 mmol/LNormal1.13-1.32UnMount St. Mary HospitalComment on above: Performed By: #### [id number] ####[facility] RESPIRATORY [id number] [place] [address] USACARBOXYHEMOGLOBIN, ARTERIAL1.5 %NormalUnMount St. Mary HospitalComment on above:Performed By: #### [id number] ####[facility] RESPIRATORY [id number] [place] [address] USAChloride [Moles/Vol]116 mmol/LHigh 98-107UnMount St. Mary HospitalComment on above:Performed By: #### [id number] ####[facility] RESPIRATORY [id number] [place] [address] USACO2 (Bld) [Partial pressure]33 mm[Hg]Zqj48-23QbjxrhbldoMount St. Mary Hospital Comment on above:Performed By: #### [id number] ####[facility] RESPIRATORY [id number] [place] [address] USADEOXYGENATED HEMOGLOBIN, ARTERIAL0.8 %Normal [facility] CenterComment on above:Performed By: #### [id number] ####[facility] RESPIRATORY [id number] [place] [address] MCRPJX612.0 % NormalUnMount St. Mary HospitalComment on above:Performed By: #### [id number] ####[facility] RESPIRATORY [id number] [place] [address] [place] Glucose [Mass/Vol]186 mg/jCLkfl64-21DtwadvnleiMount St. Mary HospitalComment on above:Performed By: #### [id number] ####[facility] RESPIRATORY [id number] [place] [address] USAHCO3 (Bld) [Moles/Vol]21.4 mmol/KCivkqq21.0-28.0 [facility] CenterComment on above:Performed By: #### [id number] ####[facility] RESPIRATORY [id number] [place] [address] USAHematocrit (Bld) [Volume fraction]24 %Dke51-35FyzwaacjsiMount St. Mary HospitalComment on above:Performed By: #### [id number] ####[facility] RESPIRATORY [id number] [place] [address] USAHemoglobin (Bld) [Mass/Vol]8.1 g/dLNormalUniLancaster Municipal HospitalComment on above:Performed By: #### [id number] ####[facility] RESPIRATORY [id number] [place] [address] USALACTATE, ARTERIAL0.70 mmol/LNormal0.36-1.39UnMount St. Mary HospitalComment on above: Performed By: #### [id number] ####[facility] RESPIRATORY [id number] [place] [address] USAMETHEMOGLOBIN, ARTERIAL0.4 %Normal0.0-1.5UnMount St. Mary HospitalComment on above:Performed By: #### [id number] ####[facility] RESPIRATORY [id number] [place] [address] USAOxygen (Bld) [Partial pressure]105 mm[Hg]Gwagtc96-804JcazkfcnyaMount St. Mary HospitalComment on above:Performed By: #### [id number] ####[facility] RESPIRATORY [id number] [place] [address] USAOXYGEN SATURATION (%) IN ARTERIAL BLOOD99.2 %Fvbzyh19.0-100.0UnMount St. Mary HospitalComment on above:Performed By: #### [id number] ####[facility] RESPIRATORY [id number] [place] [address] USAOXYGENATED HEMOGLOBIN IN ARTERIAL BLOOD97.3 %High94.0-97.0UnMount St. Mary HospitalComment on above:Performed By: #### [id number] ####[facility] RESPIRATORY [id number] [place] [address] USAPAO2/PAO20.61 mmHgNormalUniLancaster Municipal HospitalComment on above:Performed By: #### [id number] ####[facility] RESPIRATORY [id number] [place] [address] USAPEEP8 cm D8DKemclfKktdlajzczUniversity Hospitals St. John Medical CenterComment on above:Performed By: #### [id number] ####[facility] RESPIRATORY [id number] [place] [address] USAPF RHPYT289 mmHgNormal [facility] CenterComment on above:Performed By: #### [id number] ####[facility] RESPIRATORY [id number] [place] [address] USAPH OF ARTERIAL BLOOD7.88Gioxat1.35-7.45UnMount St. Mary HospitalComment on above: Performed By: #### [id number] ####[facility] RESPIRATORY [id number] [place] [address] USAPotassium [Moles/Vol]3.7 mmol/LNormal3.4-5.2UnMount St. Mary HospitalComment on above:Performed By: #### [id number] ####[facility] RESPIRATORY [id number] [place] [address] USASodium [Moles/Vol]140 mmol/LNormal 136-146UnMount St. Mary HospitalComment on above:Performed By: #### [id number] ####[facility] RESPIRATORY IHWUONI[address] [place] [address] [place] NRHDHECAAWU75.0 ???CNormalUnMount St. Mary HospitalComment on above: Performed By: #### [id number] ####[facility] RESPIRATORY OGWYVIL[address] [place] [address] USATOTAL MINUTE VOLUME7.[address] Mary Hospital Comment on above:Performed By: #### [id number] ####[facility] RESPIRATORY [id number] [place] [address] USAANESon 19-57-7668OBOBZvflyzKvjnsojbuh of [place] Medical CenterANESNormalUniversity Aultman HospitalBASIC METABOLIC PANELon 19-86-7138Ehfbw gap [Moles/Vol]8 mmol/LNormal7-20UnMount St. Mary HospitalComment on above:Performed By: #### [id number] ####[facility] HOSPITAL LAB (BEAKER)[address] [place], [place] [address]Nucddun [Mass/Vol]7.6 mg/dLLow8.6-10.3 [facility] CenterComment on above:Performed By: #### [id number] ####[facility] HOSPITAL LAB (BEAKER)[address] [place] [place], [place] [address]Pjqavfpv [Moles/Vol]117 mmol/TLgly59-136QdflampqwiMount St. Mary HospitalComment on above:Performed By: #### [id number] ####[facility] HOSPITAL LAB (BEAKER)[address] [place], [place] [address]EJ3 [Moles/Vol]23 mmol/HYyzhfb21-62XsrktrzhhfMount St. Mary HospitalComment on above:Performed By: #### [id number] ####[facility] LAB ([facility])[address] [place] [address]Vcrcsgktli [Mass/Vol]0.99 mg/dLNormal 0.60-1.30UnMount St. Mary HospitalComment on above:Performed By: #### [id number] ####[facility] ([facility])[address] [place] [address]MKGYBECCCX FILTRATION RATE ML/MIN/1.73 SQ M.TVZESVXRJ60.9 mL/min/1.73m*2Normal>60.0 [facility] CenterComment on above:Result Comment: [facility]???s estimated glomerular filtration rate (eG FR) will no longer include consideration of race [...] potential consequences that do not disproportionately affect anyone group of individuals. Performed By: #### [id number] ####[facility] ([facility])[address] [place] [address]Njuhvrx [Mass/Vol]155 mg/zMQesd70-965HyhxptkjszMount St. Mary HospitalComment on above:Performed By: #### [id number] ####[facility] ([facility])[address] [place] [address]Osipmqjsk [Moles/Vol]3.7 mmol/LNormal 3.5-5.1UnMount St. Mary HospitalComment on above:Performed By: #### [id number] ####[facility] ([facility])[address] [place] [address]Qvecyq [Moles/Vol]144 mmol/WBsjhei067-087YiuspnvyqcMount St. Mary HospitalComment on above:Performed By: #### LAB15 ####[facility] ([facility])[address] [place] [address]Rprm nitrogen [Mass/Vol]44 mg/dLHigh7-25UnMount St. Mary HospitalComment on above:Performed By: #### LAB15 ####[facility] ([facility])[address] [place] [address]JQDF NITROGEN/CREATININE (MASS RATIO) IN SER/PLAS44.4NormalUniversUniversity Hospit[address] John Medical CenterComment on above: Performed By: #### LAB15 ####[facility] ([facility])[address] [place] [address]Mgkdr gap [Moles/Vol]9 mmol/LNormal7-20UnMount St. Mary HospitalComment on above:Performed By: #### LAB15 ####[facility] ([facility])[address] [place] [address]Daooobd [Mass/Vol]7.8 mg/dLLow8.6-10.3 [facility] CenterComment on above:Performed By: #### LAB15 ####[facility] ([facility])[address] [place], [place] [address]Ykcuynqt [Moles/Vol]115 mmol/EFfnt18-881SiegrljwzsMount St. Mary HospitalComment on above:Performed By: #### LAB15 ####[facility] ([facility])[address] [place] [address]SD2 [Moles/Vol]23 mmol/OTldqat05-44CscmjtoyfdMount St. Mary HospitalComment on above:Performed By: #### LAB15 ####[facility] ([facility])[address] [place], [place] [address]Qxmepslakp [Mass/Vol]1.05 mg/dLNormal 0.60-1.30UnMount St. Mary HospitalComment on above:Performed By: #### LAB15 ####[facility] ([facility])[address] [place], [place] [address]LWTLHHOVUB FILTRATION RATE ML/MIN/1.73 SQ M.AUOXKRLVZ85.6 mL/min/1.73m*2Low>60.0UnMount St. Mary HospitalComment on above:Result Comment: [facility]???s estimated glomerular filtration rate (eGFR) [...] potential consequences that do not disproportionately affect anyone group of individuals. Performed By: #### LAB15 ####[facility] ([facility])[address] [place] [place], [place] [address]Fmuhpwo [Mass/Vol]181 mg/oNVllv03-247DtgyuoaogcMount St. Mary HospitalComment on above:Performed By: #### LAB15 ####[facility] ([facility])[address] [place], [place] [address]Xeqgxcoqx [Moles/Vol]3.8 mmol/LNormal 3.5-5.1UnMount St. Mary HospitalComment on above:Performed By: #### LAB15 ####[facility] ([facility])[address] [place] [place], [place] [address]Gslqwe [Moles/Vol]143 mmol/DRconwc264-810FhiosneqfgMount St. Mary HospitalComment on above:Performed By: #### LAB15 ####[facility] ([facility])[address] [place], [place] [address]Tjec nitrogen [Mass/Vol]44 mg/dLHigh7-25UnMount St. Mary HospitalComment on above:Performed By: #### LAB15 ####[facility] ([facility])[address] [place], [place] [address]UAAL NITROGEN/CREATININE (MASS RATIO) IN SER/PLAS41.9NormalUniversUniversity Hospitals St. John Medical CenterComment on above: Performed By: #### [id number] ####[facility] ([facility])[address] [place] [place], [place] [address]GAK WITH AUTO DIFFERENTIALon 83-44-3853Kzqiserbj (Bld) [#/Vol]0.02 10*3/uLNormal0.00-0.20UnMount St. Mary HospitalComment on above: Performed By: #### [id number] ####[facility] LAB (BEAKER)[address] [place], [place] [address]Kkpvrpvrt/100 WBC (Bld)0.2 %Normal0.0-1.0UnMount St. Mary HospitalComment on above:Performed By: #### [id number] ####[facility] ([facility])[address] [place], [place] [address]Cdrnnvpckxa (Bld) [#/Vol]0.03 10*3/uL Normal0.00-0.50UnMount St. Mary HospitalComment on above:Performed By: #### [id number] ####[facility] ([facility])[address] [place] [address] Eosinophils/100 WBC (Bld)0.3 %Normal0.0-6.0UnMount St. Mary Hospital Comment on above:Performed By: #### [id number] ####[facility] ([facility])[address] [place], [place] [address]Ljqrhulngaz distribution width (RBC) [Ratio]15.3 % High11.5-15.0UnMount St. Mary HospitalComment on above:Performed By: #### [id number] ####[facility] ([facility])[address] [place] [address] ERYTHROCYTE MEAN CORPUSCULAR HEMOGLOBIN CONCENTRATION (G/DL) BY KSUQXHUPP83.9 g/rWAedmlz94.0-35.0UnMount St. Mary HospitalComment on above:Performed By: #### [id number] ####[facility] LAB (BEAKER)[address] [place], [place] [address]Eahcekewcg (Bld) [Volume fraction]23.7 %Low36.0-50.0UnMount St. Mary HospitalComment on above:Performed By: #### [id number] ####[facility] LAB (BEAKER)[address] [place], [place] [address]Hchvhtfqgv (Bld) [Mass/Vol]7.8 g/dLLow 12.0-17.0UnMount St. Mary HospitalComment on above:Performed By: #### [id number] ####[facility] LAB (BEBANNER)[address] [place], [place] [address]Kvrnpukc granulocytes (Bld) [#/Vol]0.07 10*3/uLNormal0.00-0.20UnMount St. Mary HospitalComment on above:Performed By: #### [id number] ####[facility] ([facility])[address] [place], [place] [address]Zodbvlxp granulocytes/100 WBC (Bld)0.7 %Normal0.0-1.0UnMount St. Mary HospitalComment on above:Performed By: #### [id number] ####[facility] ([facility])[address] [place] [address] IMMATURE PLATELET FRACTION %8.4 %High0.8-6.3UnMount St. [facility] Comment on above:Performed By: #### [id number] ####[facility] ([facility])[address] [place], [place] [address]Pouilmechtj (Bld) [#/Vol]1.36 10*3/uLNormal 1.20-4.00UnMount St. Mary HospitalComment on above:Performed By: #### [id number] ####[facility] ([facility])[address] [place] [address] Lymphocytes/100 WBC (Bld)13.5 %Low20.0-45.0Un[facility] Comment on above:Performed By: #### [id number] ####[facility] ([facility])[address] [place], [place] [address]FRD (RBC) [Entitic mass]28.5 zfVmhcky31.0-33.0 [facility] CenterComment on above:Performed By: #### [id number] ####[facility] ([facility])[address] [place], [place] [address]ZOE (RBC) [Entitic vol]86.[address]vjddj75.0-98.[address]UnMount [address] Mary HospitalComment on above:Performed By: #### [id number] ####[facility] ([facility])[address] [place] [address]Sgvztbsue (Bld) [#/Vol]0.83 10*3/uLNormal0.10-1.00UnMount St. Mary HospitalComment on above:Performed By: #### [id number] ####[facility] ([facility])[address] [place] [address]Vwelcacfn/100 WBC (Bld) 8.2 %Normal5.0-12.0UnMount St[facility] Mary HospitalComment on above:Performed By: #### [id number] ####[facility] ([facility])[address] [place] [address]Vvrkrgrpeot (Bld) [#/Vol]7.79 10*3/uLHigh1.60-7.60UnMount St. Mary HospitalComment on above:Performed By: #### [id number] ####[facility] ([facility])[address] [place] [address]Bgcixqegwri/100 WBC (Bld)77.1 %High 40.0-72.0UnMount St[address] Mary HospitalComment on above:Performed By: #### [id number] ####[facility] ([facility])[address] [place] [address]GWKN (PER 100 WBCS) BY AUTOMATED COUNT0.0 %Ltfuzt1IhullbefahMount St. Mary Hospital Comment on above:Performed By: #### [id number] ####[facility] ([facility])[address] [place], [place] [address]GICLEKLSO (10*3/UL) IN BLOOD AUTOMATED [id number] 10*3/kFMxwyll760-458HfnnjsmzunMount St. Mary HospitalComment on above: Performed By: #### [id number] ####[facility] (BEAKER)[address] [place] [address]ENV (Bld) [#/Vol]2.74 10*6/uLLow3.80-5.70UnMount St. Mary HospitalComment on above:Performed By: #### [id number] ####[facility] (BEAKER)[address] [address]TJW (Bld) [#/Vol]10.10 10*3/uLNormal 4.00-10.60UnMount St. Mary HospitalComment on above:Performed By: #### [id number] ####[facility] (BEAKER)[address] [address]RYLLGTK on 95-96-3282ANFVTLZXytondLedjtmzire [facility] HospitalCONKettering Health – Soin Medical CenterCONSULTNormalUniversity [facility]ultman HospitalCONSULTNormalUniversUniversity Hospitals St. John Medical CenterHEMOGLOBIN AND HEMATOCRIT, BLOODon 20-82-5575Zgbznrcmrt (Bld) [Volume fraction]24.3 %Low36.0-50.0 [facility] CenterComment on above:Performed By: #### [id number] ####[facility] (BEAKER)[address] [address]Ciefwbkuom (Bld) [Mass/Vol]7.9 g/dLLow12.0-17.0UnMount St. Mary HospitalComment on above:Performed By: #### [id number] ####[facility] (BEAKER)[address] [address]Nehkqaxryj (Bld) [Volume fraction]25.7 %Low36.0-50.0 [facility] CenterComment on above:Performed By: #### [id number] ####[facility] (BEAKER)[address] [place], [place] [address]Xztpjvuwpx (Bld) [Mass/Vol]8.4 g/dLLow12.0-17.0UnMount St. Mary HospitalComment on above:Performed By: #### [id number] ####[facility] (BEAKER)[address] [place], [place] [address]Acmezgnqjt (Bld) [Volume fraction]24.0 %Low36.0-50.0 [facility] CenterComment on above:Performed By: #### [id number] ####[facility] ([facility])[address] [place] [address]Mbxzczsnca (Bld) [Mass/Vol]7.7 g/dLLow12.0-17.0UnMount St. Mary HospitalComment on above:Performed By: #### [id number] ####[facility] ([facility])[address] [place] [address]FVyb 44-40-4230FVU&P reviewed. The patient was examined and there are no changes to the H&P.NormalUnMount St. Mary Hospital NURSNOTEon 25-52-2437PECDBNJRMgcn bedside report to ALFONSO PosadasNormalUniversity of Methodist Specialty And Transplant HospitalOPNOTEon 55-93-1102GKMCOXMuhisoWnfmcofhfi [facility]man HospitalPOCT GLUCOSE METER UNSOLICITED RESULTSon 57-78-0898Pohqnzp [Mass/Vol]140 mg/jZTqgh72-960GshehdqnxhMount St. Mary HospitalComment on above:Order Comment: Waived Testing in the ED is performed under the ED CLIA certificate #[id number].Result Comment: [id number] By: #### [id number] ####[facility] ([facility])[address] [place], [place] [address]Twgvohg [Mass/Vol]174 mg/fQCncs54-869TkcleibgckMount St. Mary HospitalComment on above:Order Comment: Waived Testing in the ED is performed under the ED CLIA certificate #[id number].Result Comment: jfuebt2Nwvnngrka By: #### [id number] ####[facility] ([facility])[address] [place], [place] [address]Fizhryl [Mass/Vol]211 mg/vLNisl37-215KxkrtvtnguMount St. Mary HospitalComment on above:Order Comment: Waived Testing in the ED is performed under the ED CLIA certificate #[id number].Result Comment: nfgnwh5Ipaswuvtk By: #### [id number] ####[facility] (Nubisio)[address] [place] [address]Dihwmnh [Mass/Vol]215 mg/sXXxuj58-276DovoqvmdstMount St. Mary HospitalComment on above:Order Comment: Waived Testing in the ED is performed under the ED CLIA certificate #[id number].Result Comment: [id number] By: #### [id number] ####[facility] (Nubisio)[address]Z[address] HOSPITALJohnBL[place], [place] [address]OGYPRLH-JAGtu 92-86-4719FET IN PPP BY COAGULATION ASSAY1.07Qqsl0.90-1.10UnMount St. Mary HospitalComment on above:Result Comment: ACCCP RECOMMENDED INR FOR WARFARIN THERAPY CONDITION INRPROPHYLAXIS OF VENOUS THROMBOSIS 2-3(HIGH-RISK SURGERY)TREATMENT OF VENOUS THROMBOSIS 2-3TREATMENT OF PULMONARY EMBOLISM 2-3PREVENTION OF SYSTEMIC EMBOLISM: 2-3 ACUTE MYOCARDIAL INFARCTION TISSUE HEART VALVES VALVULAR HEART DISEASE ATRIAL FIBRILLATION RECURRENT SYSTEMIC EMBOLISMMECHANICAL HEART VALVE 2.5-3.5 FROM: ORAL ANTICOAGULANTS. MECHANISM OF ACTION, CLINICAL EFFECTIVENESS, AND OPTIMAL THERAPE UTIC RANGE. CHEST 1995;108:231S-246S.Performed By: #### [id number] ####[facility] ([facility])[address] [place], [place] [address]IIZIKJHNTDI TIME (PT) IN PPP BY COAGULATION ASSAY16.5 ElkcogrYsgx55.3-14.8UnMount St. Mary HospitalComment on above:Performed By: #### [id number] ####[facility] ([facility])[address] [place], [place] [address]PXK TESTon 97-88-2115YLB SLVI887 PRU Gpgjmx741-143ShnombjxldMount St. Mary HospitalComment on above:Performed By: #### PRUTEST ####[facility] (BEAKER)[address] [place] [address]AAU COMPLETE UNSOLICITED RESULTSon 14-48-3668I-XJG5EqaxvgLnokpaxdfl [facility] HospitalComment on above:Result Comment: C^IncalculablePerformed By: #### [id number] ####[facility] [id number] [place] [address] USABase excess Calc (Bld) [Moles/Vol]-7.2000 mmol/LLow-2.0-3.0UnMount St. Mary HospitalComment on above:Performed By: #### [id number] ####[facility] [id number] [place] [address] USACALCIUM IONIZED, ARTERIAL1.10 mmol/LLow1.13-1.32UnMount St. Mary HospitalComment on above:Performed By: #### [id number] ####[facility] [id number] [place] [address] USACARBOXYHEMOGLOBIN, ARTERIAL1.2 %NormalUnMount St. Mary Hospital Comment on above:Performed By: #### [id number] ####[facility] RESPIRATORY [id number] [place] [address] USAChloride [Moles/Vol]115 mmol/DLthn60-343 [facility] CenterComment on above:Performed By: #### [id number] ####[facility] RESPIRAT[facility] [id number] [place] [address] USACO2 (Bld) [Partial pressure]39 mm[Hg]Midlkp11-80TnqeeaymtkMount St. Mary HospitalComment on above:Performed By: #### [id number] ####[facility] RESPIRATORY [id number] [place] [address] USADEOXYGENATED HEMOGLOBIN, ARTERIAL0.2 %NormalUnMount St. Mary HospitalComment on above:Performed By: #### [id number] ####[facility] RESPIRATORY [id number] [place] [address] USAGlucose [Mass/Vol]199 mg/tMPcep34-55FjcxtzfsdkMount St. Mary HospitalComment on above:Performed By: #### [id number] ####[facility] RESPIRATORY [id number] [place] [address] [place] HCO3 (Bld) [Moles/Vol]18.8 mmol/LLow21.0-28.0UnMount St. Mary Hospital Comment on above:Performed By: #### [id number] ####[facility] RESPIRATORY [id number] [place] [address] USAHematocrit (Bld) [Volume fraction]24 %Wgk72-18 [facility] CenterComment on above:Performed By: #### [id number] ####[facility] RESPIRATORY [id number] [place] [address] USAHemoglobin (Bld) [Mass/Vol]8.1 g/dLNormalUniLancaster Municipal HospitalComment on above:Performed By: #### [id number] ####[facility] RESPIRATORY [id number] [place] [address] USALACTATE, ARTERIAL1.60 mmol/LHigh0.36-1.39UnMount St. Mary HospitalComment on above:Performed By: #### [id number] ####[facility] RESPIRATORY [id number] [place] [address] USAMETHEMOGLOBIN, ARTERIAL 0.8 %Normal0.0-1.5UnMount St. Mary HospitalComment on above:Performed By: #### [id number] ####[facility] RESPIRATORY [id number] [place] [address] USAOxygen (Bld) [Partial pressure]226 mm[Hg]Gpyj03-661OufmcnmiswMount St. Mary HospitalComment on above:Performed By: #### [id number] ####[facility] RESPIRATORY [id number] [place] [address] USAOXYGEN SATURATION (%) IN ARTERIAL BLOOD99.8 %Gkwezf59.0-100.0UnMount St. Mary HospitalComment on above: Performed By: #### [id number] ####[facility] RESPIRATORY [id number] [place] [address] USAOXYGENATED HEMOGLOBIN IN ARTERIAL BLOOD97.8 %High94.0-97.0 [facility] CenterComment on above:Performed By: #### [id number] ####[facility] RESPIRATORY [id number] [place] [address] USAPAO2/PAO[address] Mary HospitalComment on above:Result Comment: C^IncalculablePerformed By: #### [id number] ####[facility] RESPIRATORY [id number] [place] [address] [address]AP[address]ATION[address] Mary HospitalComment on above:Result Comment: C^IncalculablePerformed By: #### [id number] ####[facility] RESPIRATORY [id number] [place] [address] USAPH OF ARTERIAL BLOOD7.29Low7.35-7.45UnMount St. Mary HospitalComment on above: Performed By: #### [id number] ####[facility] RESPIRATORY [id number] [place] [address] USAPotassium [Moles/Vol]4.4 mmol/LNormal3.4-5.2UnMount St. Mary HospitalComment on above:Performed By: #### [id number] ####[facility] RESPIRATORY [id number] [place] [address] USASodium [Moles/Vol]140 mmol/LNormal 136-146UnMount St. Mary HospitalComment on above:Performed By: #### [id number] ####[facility] RESPIRATORY [id number] [place] [address] [place] CCEXFSQUAWR25.0 ???CNormalUnMount St. Mary HospitalComment on above: Performed By: #### [id number] ####[facility] RESPIRATORY [id number] [place] [address] USAANESon 02-25-1959HOTIPuztunOmixtmcqez of [place] Medical CenterANES NormalUnMount St. Mary HospitalBASIC METABOLIC PANELon 94-26-1095Sxnov gap [Moles/Vol]9 mmol/LNormal7-20UnMount St. Mary HospitalComment on above:Performed By: #### [id number] ####[facility] ([facility])[address] [place] [address]Wakupyb [Mass/Vol]7.7 mg/dLLow8.6-10.3UnMount St. Mary HospitalComment on above:Performed By: #### [id number] ####[facility] ([facility])[address] [facility] [place], [place] [address]Cpclitxg [Moles/Vol]114 mmol/LHigh 98-107UnMount St. Mary HospitalComment on above:Performed By: #### [id number] ####[facility] ([facility])[address] [place] [address]FZ5 [Moles/Vol]23 mmol/KCachhz18-59YkwkxhjthrMount St. Mary HospitalComment on above:Performed By: #### [id number] ####[facility] ([facility])[address]INE[address]W[facility] [place], [place] [address]Eatwkxasta [Mass/Vol]1.03 mg/dLNormal0.60-1.30UnMount St. Mary HospitalComment on above:Performed By: #### [id number] ####[facility] ([facility])[address] [place], [place] [address]DDBACOZLLV FILTRATION RATE ML/MIN/1.73 SQ M.FEEEPFBGH69.0 mL/min/1.73m*2Low>60.0UnMount St. Mary HospitalComment on above:Result Comment: [facility]???s estimated glomerular filtration rate (eGFR) [...] potential consequences that do not disproportionately affect anyone group of individuals.Performed By: #### [id number] ####[facility] (BEBANNER)[address] [place], [place] [address]Svzacwh [Mass/Vol]155 mg/xMIjnj26-742BlruvymxiyMount St. Mary HospitalComment on above:Performed By: #### [id number] ####[facility] ([facility])[address] [place], [place] [address]Rewyexgds [Moles/Vol]4.2 mmol/LNormal3.5-5.1UnMount St. Mary HospitalComment on above:Performed By: #### [id number] ####[facility] ([facility])[address] [place], [place] [address]Lbecvg [Moles/Vol]142 mmol/L Pllsfc172-682YrqisprduvMount St. Mary HospitalComment on above:Performed By: #### [id number] ####[facility] ([facility])[address] [place], [place] [address]Tpcg nitrogen [Mass/Vol]41 mg/dLHigh7-25UnMount St. Mary HospitalComment on above:Performed By: #### [id number] ####[facility] ([facility])[address] [place], [place] [address]WWMU NITROGEN/CREATININE (MASS RATIO) IN SER/PLAS39.8Normal [facility] CenterComment on above:Performed By: #### [id number] ####[facility] ([facility])[address], [place] [address]Hstry gap [Moles/Vol]9 mmol/LNormal7-20UnMount St. Mary HospitalComment on above:Performed By: #### [id number] ####[facility] ([facility])[address], [place] [address]Kggqiht [Mass/Vol]7.5 mg/dLLow8.6-10.3UnMount St. Mary HospitalComment on above:Performed By: #### [id number] ####[facility] ([facility])[address] [place], [place] [address]Dcejfdzh [Moles/Vol]114 mmol/LHigh 98-107UnMount St. Mary HospitalComment on above:Performed By: #### [id number] ####[facility] ([facility])[address] [place] [address]EL5 [Moles/Vol]23 mmol/CVbyibl86-36EayvrbnapvMount St. Mary HospitalComment on above:Performed By: #### [id number] ####[facility] ([facility])[address] [place], [place] [address]Vaxbbskwfa [Mass/Vol]1.10 mg/dLNormal0.60-1.30UnMount St. Mary HospitalComment on above:Performed By: #### [id number] ####[facility] ([facility])[address] [place], [place] [address]KSOZNHEIRF FILTRATION RATE ML/MIN/1.73 SQ M.HKGRMWAHD05.4 mL/min/1.73m*2Low>60.0UnMount St. Mary HospitalComment on above:Result Comment: [facility]???s estimated glomerular filtration rate (eGFR) [...] potential consequences that do not disproportionately affect anyone group of individuals.Performed By: #### [id number] ####[facility] ([facility])[address] [place], [place] [address]Zipbode [Mass/Vol]153 mg/zFLqxw98-128XvbfijkaxqMount St. Mary HospitalComment on above:Performed By: #### [id number] ####[facility] ([facility])[address] [place], [place] [address]Jhmyaaujq [Moles/Vol]4.3 mmol/LNormal3.5-5.1UnMount St. Mary HospitalComment on above:Performed By: #### [id number] ####[facility] ([facility])[address] [place], [place] [address]Ddnste [Moles/Vol]142 mmol/L Zhczuc850-838BwvocnwueyMount St. Mary HospitalComment on above:Performed By: #### [id number] ####[facility] ([facility])[address] [place], [place] [address]Zvle nitrogen [Mass/Vol]41 mg/dLHigh7-25UnMount St. Mary HospitalComment on above:Performed By: #### [id number] ####[facility] ([facility])[address] [place], [place] [address]RGIK NITROGEN/CREATININE (MASS RATIO) IN SER/PLAS37.3Normal [facility] CenterComment on above:Performed By: #### [id number] ####[facility] ([facility])[address] [place], [place] [address]Gaksg gap [Moles/Vol]11 mmol/LNormal7-20UnMount St. Mary HospitalComment on above:Performed By: #### [id number] ####[facility] ([facility])[address] [place], [place] [address]Pzygnxk [Mass/Vol]8.8 mg/dLNormal8.6-10.3UnMount St. Mary HospitalComment on above:Performed By: #### LAB15 ####[facility] ([facility])[address] [place], [place] [address]Vnobehfj [Moles/Vol]109 mmol/LHigh 98-107UnMount St. Mary HospitalComment on above:Performed By: #### LAB15 ####[facility] ([facility])[address] [place], [place] [address]IB5 [Moles/Vol]26 mmol/NAbzrlv30-06YyccfqdnbcMount St. Mary HospitalComment on above:Performed By: #### [id number] ####[facility] ([facility])[address] [place], [place] [address]Uvtrlmthpc [Mass/Vol]1.01 mg/dLNormal0.60-1.30UnMount St. Mary HospitalComment on above:Performed By: #### [id number] ####[facility] ([facility])[address] [place], [place] [address]YBKAJMHVHQ FILTRATION RATE ML/MIN/1.73 SQ M.XSVWYUXUS85.4 mL/min/1.73m*2Normal>60.0UnMount St[address] Mary HospitalComment on above:Result Comment: [facility]???s estimated glomerular filtration rate (eGFR) [...] potential consequences that do not disproportionately affect anyone group of individuals.Performed By: #### [id number] ####[facility] ([facility])[address] [place], [place] [address]Bpzghtx [Mass/Vol]136 mg/cHAvoj20-834JobhyuegxfMount St. Mary HospitalComment on above:Performed By: #### LAB15 ####[facility] ([facility])[address] [place], [place] [address]Xdvaciplf [Moles/Vol]4.6 mmol/LNormal3.5-5.1UnMount St. Mary HospitalComment on above:Performed By: #### [id number] ####[facility] ([facility])[address] [place], [place] [address]Tufpwx [Moles/Vol]141 mmol/L Cueakk187-458ItosvzlhwmMount St. Mary HospitalComment on above:Performed By: #### [id number] ####[facility] ([facility])[address] [place], [place] [address]Pzjh nitrogen [Mass/Vol]36 mg/dLHigh7-25UnMount St. Mary HospitalComment on above:Performed By: #### [id number] ####[facility] ([facility])[address] [place], [place] [address]CXNV NITROGEN/CREATININE (MASS RATIO) IN SER/PLAS35.6Normal [facility] CenterComment on above:Performed By: #### [id number] ####[facility] (BEAKER)[address] [facility] [place], [place] [address]Bfjjxhhup Auto (Bld) [#/Vol]Ordered By: Abdoulaye Marker on 02-82-8789Mkntktqha (Bld) [#/Vol]0.0 10 3/uL0.0-0.1FPaulding County HospitalBasophils/100 WBC Auto (Bld) Ordered By: Abdoulaye Marker on 35-20-8343Gjqmqumzt/100 WBC (Bld)0.2 %0.2-2.0 [facility] HospitalCBC WITH AUTO DIFFERENTIALon 06-15-2025 Basophils (Bld) [#/Vol]0.04 10*3/uLNormal0.00-0.20UnMount St. Mary HospitalComment on above:Performed By: #### [id number] ####[facility] (BEAKER)[address] [place], [place] [address]Slxwuoxon/100 WBC (Bld)0.4 %Normal 0.0-1.0UnMount St. Mary HospitalComment on above:Performed By: #### [id number] ####[facility] (BEAKER)[address] [place] [address] Eosinophils (Bld) [#/Vol]0.05 10*3/uLNormal0.00-0.50UnMount St. Mary HospitalComment on above:Performed By: #### [id number] ####[facility] (BEAKER)[address] [place], [place] [address]Wbprebixbtx/100 WBC (Bld)0.5 %Normal 0.0-6.0UnMount St. Mary HospitalComment on above:Performed By: #### [id number] ####[facility] (BEAKER)[address] [place] [address] Erythrocyte distribution width (RBC) [Ratio]14.9 %Dacegy99.5-15.0UnMount St[address] Mary HospitalComment on above:Performed By: #### [id number] ####[facility] (BEAKER)[address] [place] [address]BBMHADORCPJ MEAN CORPUSCULAR HEMOGLOBIN CONCENTRATION (G/DL) BY WYVDCQWSS50.8 g/dLLow32.0-35.0 [facility] CenterComment on above:Performed By: #### [id number] ####[facility] ([facility])[address] [address]Mouiugarlp (Bld) [Volume fraction]32.1 %Low36.0-50.0UnMount St. Mary HospitalComment on above:Performed By: #### [id number] ####[facility] ([facility])[address] [place] [address]Mlqxtnpoaf (Bld) [Mass/Vol]10.2 g/dLLow12.0-17.0UnMount [address] Mary HospitalComment on above:Performed By: #### [id number] ####[facility] ([facility])[address] [place] [address]Vpebxusl granulocytes (Bld) [#/Vol]0.05 10*3/uLNormal0.00-0.20UnMount St. Mary Hospital Comment on above:Performed By: #### [id number] ####[facility] ([facility])[address] [place] [address]Olriydlj granulocytes/100 WBC (Bld)0.5 %Normal 0.0-1.0UnMount St. Mary HospitalComment on above:Performed By: #### [id number] ####[facility] ([facility])[address] [place] [address]YBDVNTCF PLATELET FRACTION %12.3 %High0.8-6.3UnMount St. Mary HospitalComment on above:Performed By: #### [id number] ####[facility] ([facility])[address] [place] [address]Tzfoutuevvd (Bld) [#/Vol]2.29 10*3/uLNormal1.20-4.00 [facility] CenterComment on above:Performed By: #### [id number] ####[facility] ([facility])[address] [facility] [address]Okrhicoyshk/100 WBC (Bld)21.1 %Iqlurt31.0-45.0UnMount St. Mary HospitalComment on above:Performed By: #### [id number] ####[facility] ([facility])[address] [place] [address]OSU (RBC) [Entitic mass]27.[address]ffx01.0-33[address]Un[address] Mary HospitalComment on above:Performed By: #### [id number] ####[facility] ([facility])[address] [place], [place] [address]QAF (RBC) [Entitic vol] 87.[address]i91[address]0-98[address]Un[address] Mary HospitalComment on above: Performed By: #### [id number] ####[facility] ([facility])[address] [facility] [place] [address]Xtfyijqnh (Bld) [#/Vol]0.58 10*3/uLNormal0.10-1.00UnMount St. Mary HospitalComment on above:Performed By: #### [id number] ####[facility] ([facility])[address] [place] [address]Srgvokzym/100 WBC (Bld) 5.3 %Normal5.0-12.0UnMount St. Mary HospitalComment on above:Performed By: #### [id number] ####[facility] ([facility])[address] [facility], [place] [address]Mxddkilfono (Bld) [#/Vol]7.84 10*3/uLHigh1.60-7.60UnMount St. Mary HospitalComment on above:Performed By: #### [id number] ####[facility] ([facility])[address] [facility] [place] [address]Wpmrwghnfga/100 WBC (Bld)72.2 %High 40.0-72.0UnMount St. Mary HospitalComment on above:Performed By: #### [id number] ####[facility] ([facility])[address] [place] [address]NSZV (PER 100 WBCS) BY AUTOMATED COUNT0.0 %Gvrlak6LrtqwnkpzyMount St. Mary Hospital Comment on above:Performed By: #### [id number] ####[facility] ([facility])[address] [place] [address]YJJJHKDXB (10*3/UL) IN BLOOD AUTOMATED [id number] 10*3/tSPxvoni354-962QrighsguoyMount St. Mary HospitalComment on above: Performed By: #### [id number] ####[facility] ([facility])[address] [place] [address]ONF (Bld) [#/Vol]3.65 10*6/uLLow3.80-5.70UnMount St. Mary HospitalComment on above:Performed By: #### [id number] ####[facility] ([facility])[address] [place] [address]MMR (Bld) [#/Vol]10.85 10*3/uLHigh 4.00-10.60UnMount St. Mary HospitalComment on above:Performed By: #### [id number] ####[facility] ([facility])[address] [place] [address]KPBHMJA on 19-88-2440ENGMHAMRhqvryMhxzzsgigz Aultman HospitalCONSULTNormal Main Campus Medical CenterCTA ABDOMEN PELVIS W IV CONTRASTon 06-15-2025 CTA ABDOMEN PELVIS W IV CONTRASTInvalid Interpretation CodeUnMount St. Mary HospitalEosinophils/100 WBC Auto (Bld)Ordered By: Abdoulaye Marker on 64-48-2257Ofhwgeujapn/100 WBC (Bld)0.9 %0.9-7.0[facility] Erythrocyte distribution width Auto (RBC) [Ratio]Ordered By: Abdoulaye Marker on 19-25-1427Qyteomvdbsu distribution width (RBC) [Ratio]15.2 %High11.0-15.0 [facility] HospitalGlobulin Calc (S) [Mass/Vol]Ordered By: Ellen Crabtree on 49-92-5122Flpjdhin (S) [Mass/Vol]4.3 g/dLNorwalk Memorial HospitalGlomerular filtration rate (GFR) estimation in non- AmericanOrdered By: Ellen Crabtree on 33-00-8646EJX/1.73 sq M.predicted among non-blacks MDRD (S/P/Bld) [Vol rate/Area]mL/min/{1.73_m2}>=60 mL/min/1.[address]m [address] [place], [place] [address]HEMOGLOBIN AND HEMATOCRIT, BLOODon 24-17-9773Nalawlbidu (Bld) [Volume fraction]25.0 %Low36.0-50.0UnMount St. Mary HospitalComment on above:Performed By: #### [id number] ####[facility] (BEAKER)[address] [place], [place] [address]Svmnzvithl (Bld) [Mass/Vol]8.1 g/dLLow12.0-17.0UnMount St. Mary HospitalComment on above:Performed By: #### [id number] ####[facility] (BEAKER)[address] [place], [place] [address]Jhmzmtouyk (Bld) [Volume fraction]26.5 %Low36.0-50.0UnMount St. Mary HospitalComment on above: Performed By: #### [id number] ####[facility] (BEAKER)[address] [place], [place] [address]Kffysakofu (Bld) [Mass/Vol]8.7 g/dLLow12.0-17.0UnMount St. Mary HospitalComment on above:Performed By: #### [id number] ####[facility] (BEAKER)[address] [place], [place] [address]Dlaotkvwcm (Bld) [Volume fraction]30.0 %Low36.0-50.0UnMount St. Mary HospitalComment on above: Performed By: #### [id number] ####[facility] (BEAKER)[address] [place], [place] [address]Ptlzwgiykz (Bld) [Mass/Vol]9.5 g/dLLow12.0-17.0UnMercy Health Springfield Regional Medical Center CenterComment on above:Performed By: #### [id number] ####[facility] (ANITA)[address] [place] [address]TJui 85-87-9523HQWimxrsSt. Vincent HospitalHPNormalUniLancaster Municipal Hospital Hematocrit Auto (Bld) [Volume fraction]Ordered By: Abdoulaye Marker on 06-15-2025 Hematocrit (Bld) [Volume fraction]20.4 %Critically low42.0-54.0[facility] HospitalComment on above:RESULTS CALLED TO MERCY KENNY RN @BY Danica Ramesh at 1Hemoglobin [Mass/volume] in BloodOrdered By: Abdoulaye Marker on 58-07-0725Pzlxczumin (Bld) [Mass/Vol]6.3 g/dLCritically low 14.0-18.0[facility] HospitalComment on above:RESULTS CALLED TO YUE KENNY RN @BY Danica Ramesh at 1INR in Platelet poor plasma by Coagulation assayOrdered By: Abdoulaye Marker on 40-36-1549GCW Coag (PPP) [Relative time]1.09 {INR}[facility] HospitalComment on above: DESIRED INR:2.0-3.0 CONDITIONS NOT LISTED BELOW2.5-3.5 FOR PROSTHETIC HEART VALVE REPLACEMENT2.5-3.5 RECURRENT THROMBOSISLaboratory - Chemistry and Chemistry - challengeOrdered By: Abdoulaye Marker on 70-91-1541Umkyszu [Moles/Vol] 0.8 mmol/L0.4-2.0[facility] HospitalLaboratory - Chemistry and Chemistry - challengeOrdered By: Ellen Crabtree on 89-26-3842Wajwlzw [Mass/Vol]2.6 g/dLLow3.4-5.0[facility] HospitalALP [Catalytic activity/Vol]162 U/TJgld74-081JtkxskwruNorwalk Memorial HospitalALT [Catalytic activity/Vol]11 U/L Esa10-78PsehsodvbNorwalk Memorial HospitalAST [Catalytic activity/Vol]14 U/LLow 15-37[facility] HospitalBilirubin [Mass/Vol]0.4 mg/dL0.2-1.0 [facility] HospitalCalcium [Mass/Vol]8.9 mg/dL8.5-10.1FPaulding County HospitalChloride [Moles/Vol]110 mmol/EMvjt30-126FdzxstmlcNorwalk Memorial HospitalCO2 [Moles/Vol]26.3 mmol/L21.0-32.0[facility] HospitalCreatinine [Mass/Vol]1.14 mg/dL0.70-1.30[facility] HospitalGFR/1.73 sq M.predicted MDRD (S/P/Bld) [Vol rate/Area]mL/min/{1.73_m2} >=60 mL/min/1.73m 2FPaulding County HospitalGlucose [Mass/Vol]143 mg/dL Jqqv92-055AaunkifssNorwalk Memorial HospitalPotassium [Moles/Vol]4.3 mmol/L 3.5-5.1FPaulding County HospitalProtein [Mass/Vol]6.9 g/dL6.4-8.[address] [facility] Medical Centerodium [Moles/Vol]144 mmol/U808-542BpyhixuyrNorwalk Memorial HospitalUrea nitrogen [Mass/Vol]32.0 mg/dLHigh7.0-18.0[facility] HospitalUrea nitrogen/Creatinine [Mass ratio]28.1 mg/mgNorwalk Memorial HospitalLaboratory - Hematology and Cell countsOrdered By: Abdoulaye Marker on 29-88-6718Leqccbib granulocytes/100 WBC (Bld)0.3 %0.0-0.5 [facility] HospitalLeukocytes [#/volume] corrected for nucleated erythrocytes in Blood by Automated counOrdered By: Abdoulaye Marker on 06-15-2025 WBC corrected for nucl RBC Auto (Bld) [#/Vol]8.9 10 3/uL4.0-11.0[facility] HospitalLymphocytes Auto (Bld) [#/Vol]Ordered By: Abdoulaye Marker on 38-87-4208Edqouzlbtge (Bld) [#/Vol]1.1 10 3/uLLow1.2-3.8[facility] HospitalLymphocytes/100 WBC Auto (Bld)Ordered By: Abdoulaye Marker on 36-74-5028Aqvgdtjvsgc/100 WBC (Bld)12.3 %Low20.5-60.0[facility] HospitalMAGNESIUMon 38-11-9255Qzhhdogtp [Mass/Vol]1.7 mg/dLLow1.9-2.7UnMount St. Mary HospitalComment on above:Performed By: #### [id number] ####[facility] ([facility])[address] [place], [place] [address]Kkjrestea [Mass/Vol]1.9 mg/dLNormal1.9-2.7UnMount St. Mary HospitalComment on above:Performed By: #### [id number] ####[facility] ([facility])[address] [place] [address] MCH Auto (RBC) [Entitic mass]Ordered By: Abdoulaye Marker on 53-23-5004MUE (RBC) [Entitic mass]28.0 pg25.9-34.0[facility] HospitalMCHC Auto (RBC) [Mass/Vol]Ordered By: Abdoulaye Marker on 02-54-7095PTEP (RBC) [Mass/Vol]30.9 g/dL 29.9-35.2FPaulding County HospitalMCV Auto (RBC) [Entitic vol]Ordered By: Abdoulaye Marker on 46-16-9389GLE (RBC) [Entitic vol]90.7 fL80.0-94.0[facility] HospitalMonocytes Auto (Bld) [#/Vol]Ordered By: Abdoulaye Marker on 23-47-2253Qsjjhifyq (Bld) [#/Vol]0.5 10 3/uL0.3-0.8[facility] HospitalMonocytes/100 WBC Auto (Bld)Ordered By: Abdoulaye Marker on 06-15-2025 Monocytes/100 WBC (Bld)5.3 %1.7-12.0[facility] HospitalNURSNOTEon 43-18-1278CCKXSKJMGzsizek report to Bernardino HAMILTON MICU Endo staff out of roomNormalUniversity of Methodist Specialty And Transplant HospitalNeutrophils Auto (Bld) [#/Vol]Ordered By: Abdoulaye Marker on 74-07-9848Kacgesrcfbk (Bld) [#/Vol] 7.2 10 3/uLHigh1.4-6.5FPaulding County HospitalNeutrophils/100 WBC Auto (Bld)Ordered By: Abdoulaye Marker on 43-64-9178Opzlaewwwzv/100 WBC (Bld)81.0 %High 43.0-75.0[facility] HospitalNo Panel InformationOrdered By: Abdoulaye Marker on 18-68-0087Tdoreippbir # (Auto)0.1 10 3/uL0.0-0.7FPaulding County HospitalImmature Granulocyte # (Auto)0.03 10 3/uL0.00-0.03 [facility]0.8 mmol/L0.4-2.0[facility]0.1 10 3/uL0.0-0.7FPaulding County Hospital0.03 10 3/uL0.00-0.03 [facility]0.3 %0.0-0.5FPaulding County Hospital Troponin I High Sensitivity8.4 pg/mL4.0-76.1FPaulding County Hospital Comment on above:CUT-OFF POINTS HAVE BEEN ESTABLISHED BASED ON THE FOURTHUNIVERSAL DEFINITION OF MYOCARDIAL INFARCTION. THE UPPERREFERENCE LIMIT (URL) OF TROPONIN, DEFINED THE 99THPERCENTILE OF cTnI DISTRIBUTION IN A REFERENCE POPULATION,HAS BEEN CONFIRMED THE DECISION THRESHOLD FOR MIDIAGNOSIS.99TH PERCENTILE = 76.2 PG/MLNOTE: HIGH-SENSITIVITY TROPONIN ASSAY IS NOT INTENDED TO BEUSED IN ISOLATION BUT SHOULD BE INTERPRETED IN CONJUNCTIONWITH OTHER DIAGNOSTIC AND CLINICAL INFORMATION.8.4 pg/mL4.0-76.1 [facility] HospitalNo Panel InformationOrdered By: Ellen Crabtree on 52.6 g/dLLow3.4-5.0[facility]162 U/IYcge12-362 [facility]11 U/VAkr54-24VfxifnhdkNorwalk Memorial Hospital 14 U/ZJkj86-23RelxuqvuyNorwalk Memorial Hospital28.1FPaulding County Hospital32.0 mg/dLHigh7.0-18.0[facility]8.9 mg/dL8.5-10.1 [facility]110 mmol/YGjbc46-390InddtxeyeNorwalk Memorial Hospital26.3 mmol/L21.0-32.0[facility]1.14 mg/dL0.70-1.30 [facility]>60>=60 mL/min/1.73m 2FPaulding County Hospital143 mg/oCZxhu45-725YzrsmxpvtNorwalk Memorial Hospital4.3 mmol/L 3.5-5.1FPaulding County Hospital144 mmol/X245-792TsfrjglydNorwalk Memorial Hospital0.4 mg/dL0.2-1.0[facility]6.9 g/dL6.4-8.2 [facility] HospitalOPNOTEon 52-72-6671CQJYUHAamjobQfnegljftw of [place] Medical CenterPHOSPHORUSon 45-89-6573Xijjhllai [Mass/Vol]2.8 mg/dLNormal 2.5-5.0UnMount St. Mary HospitalComment on above:Performed By: #### [id number] ####[facility] (BEAKER)[address] [place], [place] [address]NEBT GLUCOSE METER UNSOLICITED RESULTSon 10-94-4239Ennhjku [Mass/Vol]157 mg/dLHigh 70-105UnMount St. Mary HospitalComment on above:Order Comment: Waived Testing in the ED is performed under the ED CLIA certificate #[id number].Result Comment: lvjzprg7Zqyxyosti By: #### [id number] ####[facility] (BEorderTopia)[address] [place], [place] [address]Ytukqwf [Mass/Vol]173 mg/aKDslf06-045TizhuddxleMount St. Mary HospitalComment on above:Order Comment: Waived Testing in the ED is performed under the ED CLIA certificate #[id number].Result Comment: mmolden3 Performed By: #### [id number] ####[facility] (BEAKER)[address] [place], [place] [address]ZVGVVGA-EIOjg 44-73-9809BPB IN PPP BY COAGULATION ASSAY1.35 High0.90-1.10UnMount St. Mary HospitalComment on above:Result Comment: [facility] RECOMMENDED INR FOR WARFARIN THERAPY CONDITION INRPROPHYLAXIS OF VENOUS THROMBOSIS 2-3(HIGH-RISK SURGERY)TREATMENT OF VENOUS THROMBOSIS 2-3TREATMENT OF PULMONARY EMBOLISM 2-3PREVENTION OF SYSTEMIC EMBOLISM: 2-3 ACUTE MYOCARDIAL INFARCTION TISSUE HEART VALVES VALVULAR HEART DISEASE ATRIAL FIBRILLATION RECURRENT SYSTEMIC EMBOLISMMECHANICAL HEART VALVE 2.5-3.5 FROM: ORAL ANTICOAGULANTS. MECHANISM OF ACTION, CLINICAL EFFECTIVENESS, AND OPTIMAL THERAPE UTIC RANGE. CHEST 1995;108:231S-246S.Performed By: #### [id number] ####[facility] (BEAKER)[address] [place], [place] [address]LDZYTXBFIUB TIME (PT) IN PPP BY COAGULATION ASSAY16.7 Erdm[address]zUycu54.3-14.8UnMount St. Mary HospitalComment on above:Performed By: #### [id number] ####[facility] (AKER)[address] [place], [place] [address]Ugjxdseh mean volume Auto (Bld) [Entitic vol]Ordered By: Abdoulaye Marker on 42-03-0137Qltugtqv mean volume (Bld) [Entitic vol]13.2 fL9.5-13.5FPaulding County HospitalPlatelets Auto (Bld) [#/Vol]Ordered By: Abdoulaye Marker on 16-76-5224Xadktdxej (Bld) [#/Vol]148 10 3/nSIeg166-797NaddpeqyjNorwalk Memorial HospitalProthrombin time (PT)Ordered By: Abdoulaye Marker on 01-73-9830QD Coag (PPP) [Time]11.5 s9.0-11.6FPaulding County HospitalRBC Auto (Bld) [#/Vol]Ordered By: Abdoulaye Marker on 34-22-2866ICE (Bld) [#/Vol]2.25 10 6/uLLow4.70-6.10[facility] Vincent Medical Centererum or plasma albumin/globulin mass ratioOrdered By: Ellen Crabtree on 48-10-9488Zqzcpdy/Globulin [Mass ratio]0.6 {ratio}[facility] Medical Centererum or plasma anion gap determinationOrdered By: Ellen Crabtree on 95-79-9168Gjdqw gap [Moles/Vol]12.0 mmol/LFPaulding County Hospital TRIGLYCERIDESon 95-32-8093ODOVHIW?unknownNormalUniversUniversity Hospitals St. John Medical CenterComment on above:Order Comment: Monitor triglycerides while patient is on propofol. Consult Nutrition if greater than 500 mg/dL.Performed By: #### [id number] ####[facility] (BEAKER)[address] [place], [place] [address]Ecxqphdpg [Mass/Vol]125 mg/dLNormal<150UnMount St. Mary HospitalComment on above:Order Comment: Monitor triglycerides while patient is on propofol. Consult Nutrition if greater than 500 mg/dL.Result Comment: TRIGLYCERIDE REFERENCE RANGE:20 YEARS AND OLDER CARDIOVASCULAR RISKLESS THAN 150 mg/dL LOW MJGJ014 TO 199 mg/dL BORDERLINE TSCZ611 mg/dL AND GREATER HIGH RISKPerformed By: #### [id number] ####[facility] (BEAKER)[address] [place], [place] [address]TQJT AND SCREENon 75-59-3444VD SCREENNegativeNormalUniversUniversity Hospitals St. John Medical Center Comment on above:Performed By: #### [id number] ####[facility],ABO group Nom (Bld)ANormalUniversity Aultman HospitalComment on above:Performed By: #### [id number] ####[facility],RH TYPE IN BLOODNegativeNormalUniversUniversity Hospitals St. John Medical CenterComment on above:Performed By: #### [id number] ####[facility],Follow-Upon 74-47-3908Rtxfta-UpNormalUniversUniversity Hospitals St. John Medical Center Orders Onlyon 26-16-0651Wtouut OnlyNormalUniversUniversity Hospitals St. John Medical CenterANES on 24-94-5363PXOODcufrgVgkqxxazxpLancaster Municipal HospitalHPon 29-56-7348OO Premier HealthNURSNOTEon 57-05-4625JRSGBCNFXfvhth Main [facility] Medical CenterNURSNOTECHG wipes and betadine nasal swabs completed.NormalMain Campus Medical CenterOrders Onlyon 06-05-[address] John Medical CenterOrders Onlyon 05-30-[address] John Medical CenterBasophils Auto (Bld) [#/Vol] Ordered By: Ellen Crabtree on 42-65-4533Qjlxduhgx (Bld) [#/Vol]0.0 10 3/uL0.0-0.1 [facility] HospitalBasophils/100 WBC Auto (Bld)Ordered By: Ellen Crabtree on 37-38-9503Naasqaajb/100 WBC (Bld)0.6 %0.2-2.0[facility] HospitalEosinophils/100 WBC Auto (Bld)Ordered By: Ellen Crabtree on 05-29-2025 Eosinophils/100 WBC (Bld)6.9 %0.9-7.0[facility] Erythrocyte distribution width Auto (RBC) [Ratio]Ordered By: Ellen Crabtree on 95-18-2572Glksilfxyvn distribution width (RBC) [Ratio]14.4 %11.0-15.0[facility] HospitalGlomerular filtration rate (GFR) estimation in non- AmericanOrdered By: Lora Ramos on 42-72-8023UXE/1.73 sq M.predicted among non-blacks MDRD (S/P/Bld) [Vol rate/Area]mL/min/{1.73_m2}>=60 mL/min/1.73m 2FPaulding County HospitalHematocrit Auto (Bld) [Volume fraction]Ordered By: Ellen Crabtree on 07-21-6037Wrbfclltbx (Bld) [Volume fraction]37.5 %Low42.0-54.0 [facility] HospitalHemoglobin [Mass/volume] in BloodOrdered By: Ellen Crabtree on 77-09-0751Wlkhzwcuuj (Bld) [Mass/Vol]11.5 g/dLLow14.0-18.0 [facility] HospitalLaboratory - Chemistry and Chemistry - challengeOrdered By: Lora Ramos on 67-79-3505Bbofsxk [Mass/Vol]9.4 mg/dL 8.5-10.1FPaulding County HospitalChloride [Moles/Vol]105 mmol/L98-107 [facility] HospitalCO2 [Moles/Vol]26.8 mmol/L21.0-32.0[facility] HospitalCreatinine [Mass/Vol]1.16 mg/dL0.70-1.30[facility] HospitalGFR/1.73 sq M.predicted MDRD (S/P/Bld) [Vol rate/Area] mL/min/{1.73_m2}>=60 mL/min/1.73m 2FPaulding County HospitalGlucose [Mass/Vol]94 mg/hW89-338GiblygvykNorwalk Memorial HospitalPotassium [Moles/Vol] 3.7 mmol/L3.5-5.1FSt. Mary's Medical Center, Ironton Campusodium [Moles/Vol]140 mmol/L 136-145Nor[facility] Memorial HospitalUrea nitrogen [Mass/Vol]18.0 mg/dL 7.0-18.0[facility] HospitalUrea nitrogen/Creatinine [Mass ratio] 15.5 mg/mgNorwalk Memorial HospitalLaboratory - Hematology and Cell countsOrdered By: Ellen Crabtree on 14-85-4942Qwqqcoji granulocytes/100 WBC (Bld)0.3 %0.0-0.5FPaulding County HospitalLeukocytes [#/volume] corrected for nucleated erythrocytes in Blood by Automated counOrdered By: Ellen Crabtree on 36-53-7592STK corrected for nucl RBC Auto (Bld) [#/Vol]6.8 10 3/uL4.0-11.0 [facility] HospitalLymphocytes Auto (Bld) [#/Vol]Ordered By: Ellen Crabtree on 13-65-9461Rkxesswwcas (Bld) [#/Vol]1.6 10 3/uL1.2-3.8[facility] HospitalLymphocytes/100 WBC Auto (Bld)Ordered By: Ellen Crabtree on 69-33-5653Tijrofwuwqr/100 WBC (Bld)22.9 %20.5-60.0[facility] HospitalH Auto (RBC) [Entitic mass]Ordered By: Ellen Crabtree on 38-00-9797PEN (RBC) [Entitic mass]27.4 pg25.9-34.0[facility] HospitalMCHC Auto (RBC) [Mass/Vol]Ordered By: Ellen Crabtree on 88-70-4735CEYQ (RBC) [Mass/Vol]30.7 g/dL 29.9-35.2FPaulding County HospitalMCV Auto (RBC) [Entitic vol]Ordered By: Ellen Crabtree on 60-17-6209EUB (RBC) [Entitic vol]89.3 fL80.0-94.0[facility] HospitalMonocytes Auto (Bld) [#/Vol]Ordered By: Ellen Crabtree on 48-53-7982Vzwskklkn (Bld) [#/Vol]0.4 10 3/uL0.3-0.8[facility] HospitalMonocytes/100 WBC Auto (Bld)Ordered By: Ellen Crabtree on 05-29-2025 Monocytes/100 WBC (Bld)6.5 %1.7-12.0[facility] HospitalNeutrophils Auto (Bld) [#/Vol]Ordered By: Ellen Crabtree on 23-31-3364Jjquzaiygkl (Bld) [#/Vol] 4.3 10 3/uL1.4-6.5FPaulding County HospitalNeutrophils/100 WBC Auto (Bld)Ordered By: Ellen Crabtree on 69-21-1969Dlvkjgvkttj/100 WBC (Bld)62.8 % 43.0-75.0[facility] HospitalNo Panel InformationOrdered By: Ellen Crabtree on 85-81-8728Fkraygmsqyp # (Auto)0.5 10 3/uL0.0-0.7FPaulding County HospitalImmature Granulocyte # (Auto)0.02 10 3/uL0.00-0.03[facility]0.5 10 3/uL0.0-0.7FPaulding County Hospital0.02 10 3/uL0.00-0.03[facility]0.3 %0.0-0.5FPaulding County HospitalNo Panel InformationOrdered By: Lora Ramos on 87-95-846223.5 [facility]18.0 mg/dL7.0-18.0[facility]9.4 mg/dL8.5-10.1FPaulding County Hospital105 mmol/L98-107 [facility]26.8 mmol/L21.0-32.0[facility]1.16 mg/dL0.70-1.30[facility]>60>=60 mL/min/1.73m 2 [facility]94 mg/rE53-524WxagisiceNorwalk Memorial Hospital 3.7 mmol/L3.5-5.1FPaulding County Hospital140 mmol/L853-406PerypkxtzNorwalk Memorial HospitalPlatelet mean volume Auto (Bld) [Entitic vol]Ordered By: Ellen Crabtree on 40-90-7308Tmwpxcgk mean volume (Bld) [Entitic vol]12.8 fL9.5-13.5 [facility] HospitalPlatelets Auto (Bld) [#/Vol]Ordered By: Ellen Crabtree on 68-58-1926Dgjvkknnt (Bld) [#/Vol]298 10 3/hX073-365QhsuopgeqNorwalk Memorial HospitalRBC Auto (Bld) [#/Vol]Ordered By: Ellen Crabtree on 80-65-8342XTH (Bld) [#/Vol]4.20 10 6/uLLow4.70-6.10[facility] Vincent Medical Centererum or plasma anion gap determinationOrdered By: Lora Ramos on 15-17-9423Nflgz gap [Moles/Vol]11.9 mmol/LFPaulding County HospitalOrders Onlyon 04-25-2025 Orders OnlyNormalUniversity of Methodist Specialty And Transplant HospitalAmbulatory Visit Summaryon 13-93-2963Ycbhcpgjno Visit SummaryAmbulatory Visit Summary ALISIA OCRREA :1960 Visit Date:04/24/2025 Ambulatory Visit Instructions Your [...] mg Tab) pregabalin (pregabalin 300 mg Cap) sulfamethoxazole-trimethoprim (Bactrim 400 mg-80 mg Tab) tolterodine (tolterodine 4 mg Cap-ER) topiramate (topiramate 100 mg Tab) venlafaxine (venlafaxine 37.5 mg Cap-ER) Procedures Performed Insertion of suprapubic catheter using ultrasound (US) guidance (01/22/2023), Procedure on prostate(03/08/2019), TURP - Transurethral resection of prostate (03/08/2019), Injection of therapeutic substance into bladder wall (01/25/2019), Transurethral insertion of prostatic urethral lift implant (01/26/2018), Cystoscopy (12/01/2017), Urodynamics (10/28/2017), Colonoscopy, Gastric bypass, Knee replacement, Shoulder, Tonsillectomy. What to do next Scheduled Follow-Up Appointments Thursday 10:00 AM EDT With: LYN MACE PA-C Where: [facility] [address] [place] [address]- Medications What How Much When Instructions Unchanged [...] By Mouth 2 times a day Unchanged sulfamethoxazole-trimethoprim (Bactrim 400 mg-80 mg Tab) 1 Tablets [...] signed up for this yet, please contact [employer] at [phone] to get signed up today. Language Information Language assistance services are available as needed. [facility] HospitalDocumentationon 04-14-2025 DocumentationNormalUniversity of Texas Health Harris Methodist Hospital SouthlakeEGMENTAL BLOOD PRESSUREon 57-20-5099CsqBrenda [place] [id number] Cardiology Report Signed Patient: ALISIA CORREA MR#: [id number] : 1960 Acct:[id number] Age/Sex: 64 / M ADM Date: 04/11/25 Loc: CARD Attending Dr: Heidy Marin M.D. Ordering Physician: Heidy Marin M.D. Date of Service: 04/11/25 Procedure(s): CA segmental UE or LE MARIXA Accession Number(s): [id number] cc: ELLEN CRABTREE ; Heidy Marin M.D. [facility] Test Date: 2025-04-11 Pat Name: ALISIA CORREA Department: Room: - Gender: Male Primary Care Nurse: : 1960 Requested By: 1894 Order Number: [id number] Crescencio MD: ISMAEL JC M.D. Interpretive Statements [...] JC Signed By: 04/11/25221304/11/252213 DD/ 1548 TD/TT: President Educational Institution:TBHRadiology, Radiologist, - 04/11/2025 [place] [address] Cardiology Report Signed Patient: ALISIA CORREA MR#: [id number] : 1960 Acct:[id number] Age/Sex: 64 / M ADM Date: 04/11/25 Loc: CARD Attending Dr: Heidy Marin M.D. Ordering Physician: Heidy Marin M.D. Date of Service: 04/11/25 Procedure(s): CA segmental UE or LE MARIXA Accession Number(s): [id number] cc: ELLEN CRABTREE ; Heidy Marin M.D. [facility] Test Date: 2025-04-11 Pat Name: ALISIA CORREA Department: Room: - Gender: Male Primary Care Nurse: : 1960 Requested By: 1894 Order Number: [id number] Reading MD: ISMAEL JC M.D. Interpretive Statements [...] Dictated By: ISMAEL JC Signed By: 04/11/254 04/11/254 DD/ 1548 TD/TT: President Educational Institution: [facility] HealthcareRadiology Study observation (narrative)[facility] HealthcareSEGMENTAL BLOOD PRESSUREOrdered By: Radiologist Radiology on 36-52-4900BBC[facility] Work Phone: [phone] 26-27-548024Wbw pt's request event monitor order was faxed to hospital. Confirmed 04/07/25 at 9:24[facility]36Order was faxed to number listed. [facility]36[facility]36on [id number] is full, unable to leave akgNSalem City HospitalTelemedicineon [id number]wacaOhioHealth Marion General HospitalCT BRAIN WO CONTon [id number] BRAIN WO CONTCT BRAIN WO CONT HISTORY: A 64-year-old male [...] by Henry Samano MD on 04/02/2025 5:17 [facility]Amb[facility] Summaryon [id number] Visit SummaryAmbulatory Visit Summary ALISIA CORREA :1960 Visit Date:03/31/2025 [...] mg Tab) pregabalin (pregabalin 300 mg Cap) sulfamethoxazole-trimethoprim (Bactrim 400 mg-80 mg Tab) tolterodine (tolterodine 4 mg Cap-ER) topiramate (topiramate 100 mg Tab) venlafaxine (venlafaxine 37.5 mg Cap-ER) Procedures Performed Insertion of suprapubic catheter using ultrasound (US) guidance (01/22/2023), Procedure on prostate(03/08/2019), TURP - Transurethral resection of prostate (03/08/2019), Injection of therapeutic substance into bladder wall (01/25/2019), Transurethral insertion of prostatic urethral lift implant (01/26/2018), Cystoscopy (12/01/2017), Urodynamics (10/28/2017), Colonoscopy, Gastric bypass, Knee replacement, Shoulder, Tonsillectomy. What to do next Scheduled Follow-Up Appointments Thursday 10:00 AM EDT With: LYN MACE PA-C Where: [facility] [address] [place] [address]- Thursday 10:00 AM EDT With: RODRI KHAN, LYN Crum Where: [facility] [address] [address]- Medications What How Much When Instructions Unchanged [...] By Mouth 2 times a day Unchanged sulfamethoxazole-trimethoprim (Bactrim 400 mg-80 mg Tab) 1 Tablets [...] you for choosing us for your care. [facility] HospitalFL SW[facility]OW MOTILITY FUNCTIONon 09-79-8974HC SWALLOW MOTILITY FUNCTIONFL SWALLOW MOTILITY FUNCTION STUDY: Video fluoroscopic swallow study CLINICAL HISTORY: Oral pharyngeal dysphagia, difficulty swallowing COMPARISON: None. FINDINGS: Video fluoroscopic swallow study was performed in conjunction with members of speech pathology. Barium contrast materials of multiple consistencies were administered. Fluoroscopic reference air kermawas 3.3 mGy. Multiple video fluoroscopic images. Zero fluoroscopic spot films. 2.8 minutes fluoroscopy With thin barium there was penetration, aspiration with cough reflex. Repeat attempts with chin tuck maneuver did not result additional episodes of penetration or aspiration by spoon, cup or straw. Solid and semisolid barium consistencies were handled without additional episodes of penetration oraspiration. Correlate with dedicated speech pathology report for additional details and recommendations. IMPRESSION: 1. Penetration, aspiration and cough associated with thin barium that is corrected with chin tuck maneuver. Finalized by Papito Norris DO on 03/29/2025 2:13 PMNormalTriHealth Bethesda Butler Hospitalca [facility] HospitalOrders Onlyon 77-89-7761Ammqhj [id number] Alisia Correa 1960 M Date Provider Department Center 03/15/2025 SU[facility]Y R[facility] No family history on fileNormalUniversUniversity Hospitals St. John Medical CenterAmbulatory Visit Summaryon 41-82-9354Nfsptubefq Visit SummaryAmbulatory Visit Summary ALISIA CORREA :1960 Visit Date:03/10/2025 [...] mg Tab) pregabalin (pregabalin 300 mg Cap) sulfamethoxazole-trimethoprim (Bactrim 400 mg-80 mg Tab) tolterodine (tolterodine 4 mg Cap-ER) topiramate (topiramate 100 mg Tab) venlafaxine (venlafaxine 37.5 mg Cap-ER) Procedures Performed Insertion of suprapubic catheter using ultrasound (US) guidance (01/22/2023), Procedure on prostate(03/08/2019), TURP - Transurethral resection of prostate (03/08/2019), Injection of therapeutic substance into bladder wall (01/25/2019), Transurethral insertion of prostatic urethral lift implant (01/26/2018), Cystoscopy (12/01/2017), Urodynamics (10/28/2017), Colonoscopy, Gastric bypass, Knee replacement, Shoulder, Tonsillectomy. What to do next Scheduled Follow-Up Appointments Thursday 10:00 AM EDT With: LYN MACE PA-C Where: [facility] [place] [id number] Medications What How Much When Instructions Unchanged [...] By Mouth 2 times a day Unchanged sulfamethoxazole-trimethoprim (Bactrim 400 mg-80 mg Tab) 1 Tablets [...] you for choosing us for your care. [facility] Abdominal Aorta for screening on 76-13[place] [address] Ultrasound Report Signed Patient: ALISIA CORRAE MR#: [id number] : 1960 Acct:[id number] Age/Sex: 64 / M ADM Date: 02/28/25 Loc: US Attending Dr: Heidy Marin M.D. Ordering Physician: Heidy Marin M.D. Date of Service: 02/28/25 Procedure(s): US abdominal aortic aneurysm Accession Number(s): [id number] cc: ELLEN CRABTREE ; Heidy Marin M.D. [facility] [place] [id number] Patient Name: LAISIA CORREA MRN: [id number] date: 1960 Sex: M Assigned Patient Location: US Current Patient Location: US Accession/Order Number: [id number] Exam Date: 02/28/2025 11:36 Report Date: 02/28/2025 [...] Garcia M.D. 02/28/2025 11:39 AM Dictation Location: [place] [address] Electronically authenticated by: [id number] Y Date: 02/28/2025 11:39 Dictated By: Geneva Garcia M.D. Signed By: 02/28/25 1142 DD/ 1139 TD/TT: President Educational Institution:DANIELadiology, Radiologist, - 02/28/2025 [facility] [place] [id number] Ultrasound Report Signed Patient: ALISIA CORREA MR#: [id number] : 1960 Acct:[id number] Age/Sex: 64 / M ADM Date: 02/28/25 Loc: US Attending Dr: Heidy Marin M.D. Ordering Physician: Heidy Marin M.D. Date of Service: 02/28/25 Procedure(s): US abdominal aortic aneurysm Accession Number(s): [id number] cc: ELLEN CRABTREE ; Heidy Marin M.D. [facility] [place] [id number] Patient Name: ALISIA CORREA MRN: [id number] date: 1960 Sex: M Assigned Patient Location: US Current Patient Location: US Accession/Order Number: [id number] Exam Date: 02/28/2025 11:36 Report Date: 02/28/2025 [...] Garcia M.D. 02/28/2025 11:39 AM Dictation Location: [place] [address] Electronically authenticated by: [id number] Y Date: 02/28/2025 11:39 Dictated By: Geneva Garcia M.D. Signed By: 02/28/25 1142 DD/ 1139 TD/TT: President Educational Institution: JA[facility] HealthcareRadiology Study observation (narrative)[facility]OM[facility] HealthcareUS Abdominal Aorta for screeningOrdered By: Radiologist Radiology on 17-76-7983[facility] Work Phone: ambulatory Visit Summaryon 71-97-7169Dsnaizfotr Visit SummaryAmbulatory Visit Summary ALISIA CORREA :1960 Visit Date:02/17/2025 [...] mg Tab) pregabalin (pregabalin 300 mg Cap) sulfamethoxazole-trimethoprim (Bactrim 400 mg-80 mg Tab) tolterodine (tolterodine 4 mg Cap-ER) topiramate (topiramate 100 mg Tab) venlafaxine (venlafaxine 37.5 mg Cap-ER) Procedures Performed Insertion of suprapubic catheter using ultrasound (US) guidance (01/22/2023), Procedure on prostate(03/08/2019), TURP - Transurethral resection of prostate (03/08/2019), Injection of therapeutic substance into bladder wall (01/25/2019), Transurethral insertion of prostatic urethral lift implant (01/26/2018), Cystoscopy (12/01/2017), Urodynamics (10/28/2017), Colonoscopy, Gastric bypass, Knee replacement, Shoulder, Tonsillectomy. What to do next Scheduled Follow-Up Appointments Thursday 11:00 AM EDT With: LYN MACE PA-C Where: [facility] [address] [place] [address]- Thursday 10:00 AM EDT With: LYN MACE PA-C Where: [facility] [address] [place] [address]- Thursday 10:00 AM EDT With: LYN MACE PA-C Where: [facility] [address] [place] [id number]- Medications What How Much When Instructions Unchanged [...] By Mouth 2 times a day Unchanged sulfamethoxazole-trimethoprim (Bactrim 400 mg-80 mg Tab) 1 Tablets [...] you for choosing us for your care. [facility] HospitalCT abdomen pelvis wo conon 68-96-9759QC abdomen pelvis wo [facility] [place] [address] [place], [place] [id number] CT Scan Report Signed Patient: Alisia Correa SR MR#: [id number] : 1960 Acct:[id number] Age/Sex: 64 / M ADM Date: 02/15/25 Loc: CT Room: Type: [facility] Attending Dr: Romel Leonardo MD Copies to: [...] excluded. Impression dictated by: Steven Shah Jr., Gian 02/15/2025 3:42 PM Dictation Location: [place] [address] Transcribed By: PENELOPE 02/15/25 1542 Dictated By: Steven Shah Jr, DO 02/15/25 1538 Signed By: 02/15/25 1542[facility] Physician GroupAmbulatory Visit Summaryon 94-28-4256Reiiqzlihx Visit SummaryAmbulatory Visit Summary ALISIA CORREA :1960 Visit Date:01/26/2025 [...] mg Tab) pregabalin (pregabalin 300 mg Cap) sulfamethoxazole-trimethoprim (Bactrim 400 mg-80 mg Tab) tolterodine (tolterodine 4 mg Cap-ER) topiramate (topiramate 100 mg Tab) venlafaxine (venlafaxine 37.5 mg Cap-ER) Procedures Performed Insertion of suprapubic catheter using ultrasound (US) guidance (01/22/2023), Procedure on prostate(03/08/2019), TURP - Transurethral resection of prostate (03/08/2019), [...] By Mouth 2 times a day Unchanged sulfamethoxazole-trimethoprim (Bactrim 400 mg-80 mg Tab) 1 Tablets [...] you for choosing us for your care. [facility] HospitalAmbulatory Visit Summaryon 44-59-7243Tviqdpdssd Visit SummaryAmbulatory Visit Summary ALISIA CORREA :1960 Visit Date:12/27/2024 Ambulatory Visit Instructions Your Diagnosis Recurrent UTI Urine retention Your Care Team Attending Physician - LYN MACE PA-C Primary Care Physician - ELLEN CRABTREE DO This Is Your Medications List sulfamethoxazole-trimethoprim (Bactrim 400 mg-80 mg Tab) Contact prescribing [...] using ultrasound (US) guidance (01/22/2023), Procedure on prostate(03/08/2019), TURP - Transurethral resection of prostate (03/08/2019), Injection of therapeutic substance into bladder wall (01/25/2019), Transurethral insertion of prostatic urethral lift implant (01/26/2018), Cystoscopy (12/01/2017), Urodynamics (10/28/2017), Colonoscopy, Gastric bypass, Knee replacement, Shoulder, Tonsillectomy. What to do next Scheduled Follow-Up Appointments 2024 11:20 AM EDT With: LYN MACE PA-C [facility] [address] [place] [address]- You Need to Schedule the Following Appointments Follow Up with LYN MACE PA-C, URL When: In 1 month Where: [address] [place] [address] Medications What How Much When Instructions New sulfamethoxazole-trimethoprim (Bactrim 400 mg-80 mg Tab) 1 Tablets By Mouth Thursday Duration: 90 Days Refills: 1 Pickup at [facility] Unchanged acarbose (acarbose 25 mg oral tablet) Contact prescribing physician if questions or concerns Unchanged atorvastatin (atorvastatin 10 mg Tab) Contact prescribing physician if questions or concerns Unchanged benzonatate (benzonatate 100 mg Cap) Contact prescribing physician if questions or concerns Unchanged carbidopa-levodopa (carbidopa-levodopa 25 mg-100 mg ER Tab) Contact prescribing physicianif questions or concerns Unchanged diclofenac (diclofenac sodium [...] Pharmacy Information [facility]: [address], [place] [id number] [phone] Allergies Avelox (Wheal, Eruption, Dyspnea, Urticaria, Itching, [...] of lip Testicular hyp (more content not included)...[facility]rology Office/Clinic Noteon 72-57-5555Oyypzwb Office/Clinic NoteUrology Office/Clinic Note HPI Staff At last cath [...] E&M of Est. Patient Moderate 30-39 Min 25367 2. Urine retention (R33.9: Retention of urine, unspecified) Chronic. SP changed. Return in 4 weeks for next change. [1] Ordered: Change cystostomy tube/simple [address]1879 Orders: sulfamethoxazole-trimethoprim, 1 tab(s), Oral, MonWedFri for 90 day(s), 39 tab(s), Refill(s) 1, [facility], 177, cm, 03/15/24 11:26:00 EDT, Height/Length Dosing, 95.3, kg, 03/15/24 11:26:00EDT, Weight Dosing Follow-up With When Contact Information RODRI KHAN, LYN Crum, URL In 1 month [address] [place] [address] Additional Instructions: Patient Education Urinary [...] using ultrasound (US) guidance (01/22/2023), Procedure on prostate(03/08/2019), TURP - Transurethral resection of prostate (03/08/2019), [...] UTI; LYN MACE PA-C 11/28/2024 16:01 EST [facility] HospitalComment on above:Result Comment: Electronically Signed By: LYN MACE PA-C\.br\Date and Time Signed: 12/28/2511:17 EDT Basophils Auto (Bld) [#/Vol]on 95-38-1014Ngwpoiepb (Bld) [#/Vol]Automated basophil count0.0-0.1FPaulding County HospitalBasophils/100 WBC Auto (Bld)on 88-47-7008Vpldkmldv/100 WBC (Bld)Automated basophil %0.2-2.0[facility] HospitalEosinophils/100 WBC Auto (Bld)on 12-13-2024 Eosinophils/100 WBC (Bld)Automated eosinophil %0.9-7.0[facility] HospitalErythrocyte distribution width Auto (RBC) [Ratio]on 84-61-9206Rqbpuqibyea distribution width (RBC) [Ratio]Erythrocyte distribution width [Ratio] by Automated hwzllXunk55.0-15.0[facility] HospitalEstimated glomerular filtration rate (GFR) non- Americanon 31-72-1356PWI/1.73 sq M.predicted among non-blacks MDRD (S/P/Bld) [Vol rate/Area]Estimated glomerular filtration rate (GFR) non->=60 mL/min/1.73m 2FPaulding County HospitalGlobulin Calc (S) [Mass/Vol]on 36-34-6707Oxcjatqc (S) [Mass/Vol] Serum globulin measurement by calculation (mass/volume)[facility] HospitalHematocrit Auto (Bld) [Volume fraction]on 58-99-3491Sjfbnoakay (Bld) [Volume fraction]Hematocrit [Volume Fraction] of Blood by Automated count Low42.0-54.0[facility] HospitalHemoglobin [Mass/volume] in Bloodon 85-53-6493Zshfwlviee (Bld) [Mass/Vol]Hemoglobin [Mass/volume] in BloodLow 14.0-18.0[facility] HospitalINR in Platelet poor plasma by Coagulation assayon 06-41-5899QBQ Coag (PPP) [Relative time]INR in Platelet poor plasma by Coagulation assayNorwalk Memorial HospitalComment on above: DESIRED INR:2.0-3.0 CONDITIONS NOT LISTED BELOW2.5-3.5 FOR PROSTHETIC HEART VALVE REPLACEMENT2.5-3.5 RECURRENT THROMBOSISLaboratory - Chemistry and Chemistry - challengeon 75-28-0618Meognrn [Mass/Vol]3.7 g/dL3.4-5.0[facility] HospitalALP [Catalytic activity/Vol]91 U/Q77-246InkaqgulgNorwalk Memorial HospitalALT [Catalytic activity/Vol]U/OFzm18-16OuvlbzkgkNorwalk Memorial HospitalAST [Catalytic activity/Vol]18 U/M08-20QrratjcnbNorwalk Memorial HospitalBilirubin [Mass/Vol]0.4 mg/dL0.2-1.0[facility] Calcium [Mass/Vol]9.0 mg/dL8.5-10.1FPaulding County HospitalChloride [Moles/Vol]108 mmol/UTxwd71-871MmopwbioxNorwalk Memorial HospitalCO2 [Moles/Vol] 27.7 mmol/L21.0-32.0[facility] HospitalCreatinine [Mass/Vol]1.20 mg/dL0.70-1.30[facility] HospitalGFR/1.73 sq M.predicted MDRD (S/P/Bld) [Vol rate/Area]mL/min/{1.73_m2}>=60 mL/min/1.73m 2FPaulding County HospitalGlucose [Mass/Vol]91 mg/yE92-211EbuymqhugNorwalk Memorial Hospital Lactate [Moles/Vol]1.2 mmol/L0.4-2.0[facility] HospitalPotassium [Moles/Vol]3.7 mmol/L3.5-5.1FPaulding County HospitalProtein [Mass/Vol] 7.1 g/dL6.4-8.2FSt. Mary's Medical Center, Ironton Campusodium [Moles/Vol]143 mmol/L 136-145Nor[facility] HospitalUrea nitrogen [Mass/Vol]24.0 mg/dLHigh 7.0-18.0[facility] HospitalUrea nitrogen/Creatinine [Mass ratio] 20.0 mg/mgNorwalk Memorial HospitalLaboratory - Hematology and Cell countson 40-44-5795Fcuxeepj granulocytes/100 WBC (Bld)0.2 %0.0-0.5FPaulding County HospitalLaboratory - Microbiology and Antimicrobial susceptibilityon 37-46-3157FUQG-CoV-2 (COVID-19) RNA KELLIE+probe Ql (Unsp spec) NegativeNEGATIVENorwalk Memorial HospitalComment on above:This test has not been FDA cleared or approved, but has beenauthorized by the FDA under an Emergency Use Authorization(EUA) for use by authorized laboratories certified underIA that meet the requirements to perform moderate or highcomplexity testing. This test has been authorized only forthe detection of proteins from SARS-CoV-2, not for any otherviruses or pathogens. The emergency use of this t est isauthorized for the duration of the declaration thatcircumstances exist justifying the authorization ofemergency use of in vitro diagnostic tests for detectionand/or diagnosis of Covid-19 under section 564(b)(1) of theAct, 21 U.S.C. 360bbb-3(b)(1), unless the declaration isterminated or authorization is revoked sooner.Laboratory - Urinalysison 05-75-6832Cfknygpkw sediment LM Ql (Urine sed)[facility] HospitalMucus Ql (Urine sed)NONE SEENNONE [facility] HospitalLeukocytes [#/volume] corrected for nucleated erythrocytes in Blood by Automated counon 71-83-5612FCE corrected for nucl RBC Auto (Bld) [#/Vol]Leukocytes [#/volume] corrected for nucleated erythrocytes in Blood by Automated coun4.0-11.0[facility] Lymphocytes Auto (Bld) [#/Vol]on 81-20-4372Qhtzclnupan (Bld) [#/Vol]Lymphocytes [#/volume] in Blood by Automated count1.2-3.8[facility] Lymphocytes/100 WBC Auto (Bld)on 85-23-9018Jrblbrwlnlo/100 WBC (Bld) Lymphocytes/100 leukocytes in Blood by Automated count20.5-60.0[facility] HospitalH Auto (RBC) [Entitic mass]on 44-74-9190KUY (RBC) [Entitic mass]MCH [Entitic mass] by Automated count25.9-34.0[facility] HospitalMCHC Auto (RBC) [Mass/Vol]on 21-19-8928CKLI (RBC) [Mass/Vol]MCHC [Mass/volume] by Automated count29.9-35.2[facility] Medical CenterMCV Auto (RBC) [Entitic vol]on 82-88-9288ZGB (RBC) [Entitic vol]MCV [Entitic volume] by Automated yqjzkGdhp97.0-94.0[facility] HospitalMonocytes Auto (Bld) [#/Vol]on 56-45-8417Vtxltzvec (Bld) [#/Vol]Automated blood monocyte count 0.3-0.8[facility] HospitalMonocytes/100 WBC Auto (Bld)on 36-98-2251Gnwjgzajg/100 WBC (Bld)Automated monocyte %1.7-12.0[facility] HospitalNeutrophils Auto (Bld) [#/Vol]on 56-69-1652Jrotyihrvmk (Bld) [#/Vol]Neutrophils [#/volume] in Blood by Automated count1.4-6.5FPaulding County HospitalNeutrophils/100 WBC Auto (Bld)on 12-13-2024 Neutrophils/100 WBC (Bld)Automated neutrophil %43.0-75.0[facility] HospitalNo Panel Informationon 65-39-2063Whwaz BacteriaLARGE #/HPFAbnormal NONE SEENNorwalk Memorial HospitalUrine Culture ReflexedYES-[facility] HospitalUrine Other CastsNONE SEEN #/LPFNONE SEEN [facility] HospitalUrine Other CrystalsSeen #/HPFAbnormalNone Seen [facility] HospitalUrine RBC2-5 #/HPFAbnormal0-2FPaulding County HospitalUrine Squamous Epithelial CellsRARE #/LPFNONE/RARENorwalk Memorial HospitalUrine WBC5-10 #/HPFAbnormalNONE SEENNorwalk Memorial HospitalEosinophils # (Auto)0.2 10 3/uL0.0-0.7FPaulding County HospitalImmature Granulocyte # (Auto)0.01 10 3/uL0.00-0.03[facility] HospitalTroponin I High Sensitivity4.4 pg/mL4.0-76.1FPaulding County HospitalComment on above:CUT-OFF POINTS HAVE BEEN ESTABLISHED BASED ON THE FOURTHUNIVERSAL DEFINITION OF MYOCARDIAL INFARCTION. THE UPPERREFERENCE LIMIT (URL) OF TROPONIN, DEFINED THE 99THPERCENTILE OF cTnI DISTRIBUTION IN A REFERENCE POPULATION,HAS BEEN CONFIRMED THE DECISION THRESHOLD FOR MIDIAGNOSIS.99TH PERCENTILE = 76.2 PG/MLNOTE: HIGH-SENSITIVITY TROPONIN ASSAY IS NOT INTENDED TO BEUSED IN ISOLATION BUT SHOULD BE INTERPRETED IN CONJUNCTIONWITH OTHER DIAGNOSTIC AND CLINICAL INFORMATION.Bedside Influenza Type A AntigenNegativeNorwalk Memorial HospitalComment on above:Negative for Flu A protein antigen. Infection due to Flu Acannot be ruled out. Flu A antigen in thesample may bebelow the detection limit of the test.Bedside Influenza Type B AntigenNegativeNorwalk Memorial HospitalComment on above:Negative for Flu B protein antigen. Infection due to Flu Bcannot be ruled out. Flu B antigen in thesample may bebelow the detection limit of the test.Platelet mean volume Auto (Bld) [Entitic vol]on 94-12-1138Svxcafem mean volume (Bld) [Entitic vol] Platelet mean volume [Entitic volume] in Blood by Automated count9.5-13.5 [facility] HospitalPlatelets Auto (Bld) [#/Vol]on 12-13-2024 Platelets (Bld) [#/Vol]Platelets [#/volume] in Blood by Automated countLow 150-450Nor[facility] Memorial HospitalProthrombin time (PT)on 22-65-1279PU Coag (PPP) [Time]Prothrombin time (PT)9.0-11.6FPaulding County Hospital RBC Auto (Bld) [#/Vol]on 86-05-9912DLT (Bld) [#/Vol]Erythrocytes [#/volume] in Blood by Automated countLow4.70-6.10[facility] Medical Centererum or plasma albumin/globulin mass ratioon 22-19-9947Qnrjqot/Globulin [Mass ratio] Serum or plasma albumin/globulin mass ratioNorwalk Memorial Hospital Serum or plasma anion gap determinationon 96-01-8685Kmhyr gap [Moles/Vol]Serum or plasma anion gap determinationNorwalk Memorial HospitalUrine Culture on 22-05-5671Hjusmpbg identified Cx Nom (U)ORGANISM: Pseudomonas aeruginosa (O:PSEAER) Carbapenemase [Type] in Isolate by Carba DEMOGRAPHIC ANALYST Organism negative for carbapenemase (CRE) [place] Count >100,000 ORGANISM: Methicillin Resis Staph Aureus (O:MRSA) [place] Count >100,000 Aerobic SABI Charge (NMIC56) SUSCEPTIBILITY [...] >2 Penicillin R >2 Tetracycline S <4 Trimethoprim/Sulfamethoxazole R >2 Vancomycin S 0.5 S = [...] RESISTANT TO ALL B-LACTAM DRUGS. PERFORMED BY: [place] [address] PATHOLOGIST DIRECTOR ADULT HEIDY BustilloThe [facility] Physician GroupComment on above: Performed By: #### CUU #### [place] [address] USAUrine cultureOrdered By: Mercedez Resendez on 32-68-3102Qqgobvlf identified Cx Nom (U)[facility] Medical CenterBacteria identified Cx Nom (U)[facility]terson Medical CenterC Urineon 05-20-8816Elyxpcvc identified Cx Nom (U)Microbiology PROCEDURE: Urine Culture [R1] SOURCE: U CleanCatch BODY SITE: COLLECTED DATE/TIME: 11/28/2024 16:22 EST RECEIVED DATE/TIME: 11/29/2024 18:01 EST START DATE/TIME: 11/29/2024 18:01 EST FREE TEXT SOURCE: RODRI KHAN, LYN MACE PA-C, LYN Crum FINAL REPORTS Final Report [] Verified Date/Time: 12/02/2024 08:46 EST >100,000 cfu/ml Enterobacter cloacae 75,000 cfu/ml Klebsiella pneumoniae SUSCEPTIBILITY RESULTS LEGEND: S=Susceptible, N/R=Not Reported, Blank=Data [...] Locations R1: This test was performed at: [facility], [address] [place] [address], [address] [place] [address], XosfawWjuvsbMercy Health Lorain HospitalComment on above:Performed By: #### [id number] #### [facility] [address] [place], [place] [address]A1C with Estimated Average Gluon 53-22-3387Hlzeflj [Mass/Vol] 103 mg/dLNoNovant Health Clemmons Medical Center Physician GroupComment on above:Order Comment: Reason for Exam DiabetesResult Comment: PERFORMED BY: [place] [id number] PATHOLOGIST DIRECTOR ADULT HEIDY MIRANDA M.D.Performed By: #### A1C WT eA #### [facility] [address] [place] [address] XGYPaC2g (Bld) [Mass fraction]5.2 %Normal4.3-5.6The [facility] Physician GroupComment on above:Order Comment: Reason for Exam DiabetesResult Comment: Increased risk for diabetes: 5.7 - 6.4 diabetes: >6.4 glycemic control for adults with diabetes: <7.0Performed By: #### A1C WTH eA #### [facility] [address] [place] [id number] [facility]ALTH CENTERAlanine aminotransferase [Enzymatic activity/volume] in Serum or PlasmaOrdered By: Ellen Crabtree on 11-88-2680RTO [Catalytic activity/Vol] Alanine aminotransferase [Enzymatic activity/volume] in Serum or PlasmaLow7-52 [facility] HospitalAlbumin [Mass/volume] in Serum or Plasma by Bromocresol green (BCG) dye binding methoOrdered By: Ellen Crabtree on 11-28-2024 Albumin BCG dye [Mass/Vol]Albumin [Mass/volume] in Serum or Plasma by Bromocresol green (BCG) dye binding metho3.5-5.7FPaulding County HospitalAlkaline phosphatase [Enzymatic activity/volume] in Serum or PlasmaOrdered By: Ellen Crabtree on 46-26-7968NDX [Catalytic activity/Vol]Alkaline phosphatase [Enzymatic activity/volume] in Serum or Xxtonp22-011CmyjkcokbNorwalk Memorial HospitalAspartate aminotransferase [Enzymatic activity/volume] in Serum or Plasma Ordered By: Ellen Crabtree on 31-17-7069IEB [Catalytic activity/Vol]Aspartate aminotransferase [Enzymatic activity/volume] in Serum or Bpqykr77-60UbegveprwNorwalk Memorial HospitalBasophils Auto (Bld) [#/Vol]Ordered By: Ellen Crabtree 22-16-5875Raopwtnzz (Bld) [#/Vol]Automated basophil count0.0-0.2FPaulding County HospitalBasophils/100 WBC Auto (Bld)Ordered By: Ellen Crabtree on 03-94-0388Ocrjhldbb/100 WBC (Bld)Automated basophil %.Nor[facility] Memorial HospitalBilirubin.total [Mass/volume] in Serum or PlasmaOrdered By: Ellen Crabtree on 64-54-3163Tlzxjdsnr [Mass/Vol]Bilirubin.total [Mass/volume] in Serum or Plasma 0.3-1.0[facility] HospitalBlood estimated average glucose determination by estimation from glycated hemoglobinOrdered By: Ellen Crabtree on 17-31-3465Lpcgywp glucose Estimated from glycated hemoglobin (Bld) [Mass/Vol] Glucose mean value [Mass/volume] in Blood Estimated from glycated hemoglobin [facility] HospitalCalcium [Mass/volume] in Serum or PlasmaOrdered By: Ellen Crabtree on 58-09-7806Faqbjcm [Mass/Vol]Calcium [Mass/volume] in Serum or Plasma8.6-10.3FPaulding County HospitalCarbon dioxide, total [Moles/volume] in Serum or PlasmaOrdered By: Ellen Crabtree on 07-35-6829XH4 [Moles/Vol]Carbon dioxide, total [Moles/volume] in Serum or Yxedeh93.0-31.0 [facility] HospitalChloride [Moles/volume] in Serum or Plasma Ordered By: Ellen Crabtree on 25-81-5850Mnpqkime [Moles/Vol]Chloride [Moles/volume] in Serum or PoejmiFast67-134SxyufcyrwNorwalk Memorial HospitalCholesterol [Mass/volume] in Serum or PlasmaOrdered By: Ellen Crabtree on 30-35-6169Sttylqiwtad [Mass/Vol]Cholesterol [Mass/volume] in Serum or Pqaqoo766-523XcqndkldoNorwalk Memorial HospitalComment on above:Chol less than 200 mg/dl low riskChol 201-239 mg/dl borderline riskChol 240 mg/dl and greater high riskCholesterol in HDL [Mass/volume] in Serum or PlasmaOrdered By: Ellen Crabtree on 73-19-2605Lnjsppvubuh in HDL [Mass/Vol]Serum or plasma high density lipoprotein (HDL) cholesterol ifpykrefvsl56-15CergswdvoNorwalk Memorial HospitalComment on above:HDL CHOL ATP- III CLASSIFICATION Cardiovascular RiskHDL > or equal to 60 mg/dL LOWHDL < 40 mg/dL HIGHCholesterol in LDL Calc [Mass/Vol]Ordered By: Ellen Crabtree on 11-28-2024 Cholesterol in LDL [Mass/Vol]Cholesterol in LDL [Mass/volume] in Serum or Plasma by calculation0-100Norwalk Memorial HospitalComment on above:LDL ATP III CLASSIFICATIONLDL less than 100 mg/dL OptimalLDL 100-129 mg/dL Near or above fmthlgrIXX775-023 mg/dL Borderline highLDL 160-189 mg/dL HighLDL greater than 189 mg/dL Very highCholesterol in VLDL Calc [Mass/Vol]Ordered By: Ellen Crabtree on 59-89-4848Hmamhlyyzgi in VLDL [Mass/Vol]Cholesterol in VLDL [Mass/volume] in Serum or Plasma by calculationNorwalk Memorial HospitalComplete Blood Count Auto Diffon 08-06-9157Hcxxvrzym (Bld) [#/Vol]0.0 10*3/uLNormal0.0-0.2The [facility] Physician GroupComment on above:Result Comment: PERFORMED BY: [place] [address] PATHOLOGIST DIRECTOR ADULT HEIDY MIRANDA M.D.Performed By: #### LIPID, CMP, PSAS, TSH3, CBC #### [place] [address] USABasophils/100 WBC (Bld)0.5 %Normal.The [facility] Physician GroupComment on above:Performed By: #### LIPID, CMP, PSAS, TSH3, CBC #### [place] [address] USAEosinophils (Bld) [#/Vol]0.1 10*3/uLNormal0.0-0.45The [facility] Physician GroupComment on above:Performed By: #### LIPID, CMP, PSAS, TSH3, CBC #### [place] [address] USAEosinophils/100 WBC (Bld)3.0 %Normal.The [facility] Physician GroupComment on above:Performed By: #### LIPID, CMP, PSAS, TSH3, CBC #### [place] [address] USAErythrocyte distribution width (RBC) [Ratio]19.5 %High 12.0-14.8The [facility] Physician GroupComment on above:Performed By: #### LIPID, CMP, PSAS, TSH3, CBC #### [place] [address] USAHematocrit (Bld) [Volume fraction]39.1 %Timjtj02.8-50.0The [facility] Physician GroupComment on above:Performed By: #### LIPID, CMP, PSAS, TSH3, CBC #### [place] [address] USAHemoglobin (Bld) [Mass/Vol]12.6 g/dLLow13.0-17.0The [facility] Physician GroupComment on above:Performed By: #### LIPID, CMP, PSAS, TSH3, CBC #### [place] [address] USALymphocytes (Bld) [#/Vol]1.4 10*3/uLNormal1.00-4.8The [facility] Physician GroupComment on above:Performed By: #### LIPID, CMP, PSAS, TSH3, CBC #### [place] [address] USALymphocytes/100 WBC (Bld)28.5 %Normal.The [facility] Physician GroupComment on above:Performed By: #### LIPID, CMP, PSAS, TSH3, CBC #### [address] (RBC) [Entitic mass]29.4 eaWredho21.5-35.2The [facility] Physician GroupComment on above:Performed By: #### LIPID, CMP, PSAS, TSH3, CBC #### [address] (RBC) [Entitic vol]91.3 kITvibeq61.5-101The [facility] Physician GroupComment on above:Performed By: #### LIPID, CMP, PSAS, TSH3, CBC #### [place] [address] USAMean Corpuscular HGB Conc32.2 g/dLLow32.5-35.6The [facility] Physician GroupComment on above:Performed By: #### LIPID, CMP, PSAS, TSH3, CBC #### [place] [address] USAMonocytes (Bld) [#/Vol]0.4 10*3/uLNormal0.0-0.8The [facility] Physician GroupComment on above:Performed By: #### LIPID, CMP, PSAS, TSH3, CBC #### [place] [address] USAMonocytes/100 WBC (Bld)7.3 %Normal.The [facility] Physician GroupComment on above:Performed By: #### LIPID, CMP, PSAS, TSH3, CBC #### [place] [address] USANeutrophils (Bld) [#/Vol]3.0 10*3/uLNormal1.8-7.7The [facility] Physician GroupComment on above:Performed By: #### LIPID, CMP, PSAS, TSH3, CBC #### [place] [address] USANeutrophils/100 WBC (Bld)60.7 %Normal.The [facility] Physician GroupComment on above:Performed By: #### LIPID, CMP, PSAS, TSH3, CBC #### [place] [address] USANRBC%0.3 /100{WBC}Normal0-0.5The [facility] Comment on above:Performed By: #### LIPID, CMP, PSAS, TSH3, CBC #### [place] [address] USAPlatelet mean volume (Bld) [Entitic vol]11.7 fLHigh 6.6-10.1The [facility] Physician GroupComment on above:Performed By: #### LIPID, CMP, PSAS, TSH3, CBC #### [place] [address] USAPlatelets (Bld) [#/Vol]126 10*3/xZMyr565-514Xvl [facility] Physician GroupComment on above:Performed By: #### LIPID, CMP, PSAS, TSH3, CBC #### [place] [address] USARBC (Bld) [#/Vol]4.28 10*6/uLNormal3.90-5.60The [facility] Physician GroupComment on above:Performed By: #### LIPID, CMP, PSAS, TSH3, CBC #### [address] [place] [address] USAWBC (Bld) [#/Vol]4.9 10*3/uLNormal4.1-10.5The [facility] Physician GroupComment on above:Performed By: #### LIPID, CMP, PSAS, TSH3, CBC #### [place] [address] USAComprehensive Metabolic Panelon 04-42-3787Ljeedvs [Mass/Vol]4.2 g/dLNormal3.5-5.7The [facility] Physician GroupComment on above: Order Comment: Reason for Exam Hyperlipidemia Reason for Exam: HyperlipidemiaPerformed By: #### LIPID, CMP, PSAS, TSH3, CBC #### [place] [address] USAAlbumin/Globulin [Mass ratio]1.4 {ratio}NormalThe [facility] Physician GroupComment on above:Order Comment: Reason for Exam Hyperlipidemia Reason for Exam: HyperlipidemiaPerformed By: #### LIPID, CMP, PSAS, TSH3, CBC #### [place] [address] USAALP [Catalytic activity/Vol]85 U/PCvpgks09-404Dgi [facility] Physician GroupComment on above:Order Comment: Reason for Exam Hyperlipidemia Reason for Exam: HyperlipidemiaPerformed By: #### LIPID, CMP, PSAS, TSH3, CBC #### [place] [address] USAALT [Catalytic activity/Vol]3 U/LLow7-52The [facility] Physician GroupComment on above:Order Comment: Reason for Exam Hyperlipidemia Reason for Exam: HyperlipidemiaPerformed By: #### LIPID, CMP, PSAS, TSH3, CBC #### [facility] [address] [place] [address] USAAnion gap [Moles/Vol]8.8 mmol/LNormal6.0-15.0The [facility] Physician GroupComment on above:Order Comment: Reason for Exam Hyperlipidemia Reason for Exam: HyperlipidemiaPerformed By: #### LIPID, CMP, PSAS, TSH3, CBC #### [place] [address] USAAST [Catalytic activity/Vol]17 U/KUinmpc67-79Ugq [facility] Physician GroupComment on above:Order Comment: Reason for Exam Hyperlipidemia Reason for Exam: HyperlipidemiaPerformed By: #### LIPID, CMP, PSAS, TSH3, CBC #### [facility] [address] [place] [address] USABilirubin [Mass/Vol]0.4 mg/dLNormal0.3-1.0The [facility] Physician GroupComment on above:Order Comment: Reason for Exam Hyperlipidemia Reason for Exam: HyperlipidemiaPerformed By: #### LIPID, CMP, PSAS, TSH3, CBC #### [facility] [address] [place] [address] USACalcium [Mass/Vol]9.9 mg/dLNormal8.6-10.3The [facility] Physician GroupComment on above:Order Comment: Reason for Exam Hyperlipidemia Reason for Exam: HyperlipidemiaPerformed By: #### LIPID, CMP, PSAS, TSH3, CBC #### [facility] [address] [place] [address] USAChloride [Moles/Vol]111 mmol/FKunn59-087Lza [facility] Physician GroupComment on above:Order Comment: Reason for Exam Hyperlipidemia Reason for Exam: HyperlipidemiaPerformed By: #### LIPID, CMP, PSAS, TSH3, CBC #### [facility] [address] [place] [address] USACO2 [Moles/Vol]27.9 mmol/PEvtakq20.0-31.0The [facility] Physician GroupComment on above:Order Comment: Reason for Exam Hyperlipidemia Reason for Exam: HyperlipidemiaPerformed By: #### LIPID, CMP, PSAS, TSH3, CBC #### [facility] [address] [place] [address] USACreatinine [Mass/Vol]1.29 mg/dLNormal0.70-1.30The [facility] Physician GroupComment on above:Order Comment: Reason for Exam Hyperlipidemia Reason for Exam: HyperlipidemiaPerformed By: #### LIPID, CMP, PSAS, TSH3, CBC #### [facility] [address] [place] [address] USAGFR/1.73 sq M.predicted MDRD (S/P/Bld) [Vol rate/Area] mL/min/{1.73_m2}NormalThe [facility] Physician GroupComment on above:Order Comment: Reason for Exam Hyperlipidemia Reason for Exam: HyperlipidemiaPerformed By: #### LIPID, CMP, PSAS, TSH3, CBC #### [facility] [address] [place] [id number] USAGlobulin (S) [Mass/Vol]2.9 g/dLNormalThe [facility] Physician GroupComment on above:Order Comment: Reason for Exam Hyperlipidemia Reason for Exam: HyperlipidemiaPerformed By: #### LIPID, CMP, PSAS, TSH3, CBC #### [facility] [address] [place] [address] USAGlucose [Mass/Vol]90 mg/yWQlwkwy77-115Qat [facility] Physician GroupComment on above:Order Comment: Reason for Exam Hyperlipidemia Reason for Exam: HyperlipidemiaResult Comment: Random Glucose Reference Range is dependent on time and content of last meal. Glucose of more than 200 mg/dL in a nonstressed, ambulatory subject supports the diagnosis of Diabetes Mellitus. ADA recommended reference rangePerformed By: #### LIPID, CMP, PSAS, TSH3, CBC #### [place] [address] USAPotassium [Moles/Vol]3.7 mmol/LNormal3.5-5.1The [facility] Physician GroupComment on above:Order Comment: Reason for Exam Hyperlipidemia Reason for Exam: HyperlipidemiaPerformed By: #### LIPID, CMP, PSAS, TSH3, CBC #### [place] [id number] USAProtein [Mass/Vol]7.1 g/dLNormal6.4-8.9The [facility] Physician GroupComment on above:Order Comment: Reason for Exam Hyperlipidemia Reason for Exam: HyperlipidemiaPerformed By: #### LIPID, CMP, PSAS, TSH3, CBC #### [facility] [address] [place] [address] USASodium [Moles/Vol]144 mmol/AGqckjf664-598Uhx [facility] Physician GroupComment on above:Order Comment: Reason for Exam Hyperlipidemia Reason for Exam: HyperlipidemiaPerformed By: #### LIPID, CMP, PSAS, TSH3, CBC #### [facility] [address] [place] [id number] USAUrea nitrogen [Mass/Vol]24 mg/dLNormal7-25The [facility] Physician GroupComment on above:Order Comment: Reason for Exam Hyperlipidemia Reason for Exam: HyperlipidemiaPerformed By: #### LIPID, CMP, PSAS, TSH3, CBC #### [facility] [address] [place] [id number] USACreatinine [Mass/volume] in Serum or PlasmaOrdered By: Ellen Crabtree on 01-68-7322Eysnszjjbj [Mass/Vol]Creatinine [Mass/volume] in Serum or Plasma0.70-1.30Norwalk Memorial HospitalEosinophils Auto (Bld) [#/Vol]Ordered By: Ellen Crabtree on 53-26-1687Pltlqlhuocm (Bld) [#/Vol]Automated eosinophil count0.0-0.45Norwalk Memorial HospitalEosinophils/100 WBC Auto (Bld)Ordered By: Ellen Crabtree on 82-29-7319Fuzlrvewjwp/100 WBC (Bld)Automated eosinophil %.Norwalk Memorial HospitalErythrocyte distribution width Auto (RBC) [Ratio]Ordered By: Ellen Crabtree on 56-34-8179Fimxmmptiyg distribution width (RBC) [Ratio]Erythrocyte distribution width [Ratio] by Automated countHigh 12.0-14.8Norwalk Memorial HospitalGlobulin Calc (S) [Mass/Vol]Ordered By: Ellen Crabtree on 21-49-2890Tyfugore (S) [Mass/Vol]Serum globulin measurement by calculation (mass/volume)[facility] HospitalGlucose [Mass/volume] in Serum or PlasmaOrdered By: Ellen Crabtree on 20-15-4487Dbonywe [Mass/Vol]Glucose [Mass/volume] in Serum or Latfua00-973TuglemopkNorwalk Memorial HospitalComment on above:ADA recommended reference rangeRandom Glucose Reference Range is dependent on time and content of last meal. Glucose of more than 200 mg/dL in a nonstressed, ambulatory subject supports the diagnosisof Diabetes Mellitus. Hematocrit Auto (Bld) [Volume fraction]Ordered By: Ellen Crabtree on 11-28-2024 Hematocrit (Bld) [Volume fraction]Hematocrit [Volume Fraction] of Blood by Automated count38.8-50.0Norwalk Memorial HospitalHemoglobin A1c/Hemoglobin.total in BloodOrdered By: Ellen Crabtree on 27-26-5659GyG2c (Bld) [Mass fraction]Hemoglobin A1c percentage4.3-5.6FPaulding County Hospital Comment on above:Increased risk for diabetes: 5.7 - 6.4diabetes: >6.4glycemic control for adults with diabetes: <7.0Hemoglobin [Mass/volume] in Blood Ordered By: Ellen Crabtree on 82-90-5641Puvlrucppj (Bld) [Mass/Vol]Hemoglobin [Mass/volume] in LsjgfAvc68.0-17.0[facility] HospitalLeukocytes [#/volume] corrected for nucleated erythrocytes in Blood by Automated coun Ordered By: Ellen Crabtree on 57-26-4562JJJ corrected for nucl RBC Auto (Bld) [#/Vol]Leukocytes [#/volume] corrected for nucleated erythrocytes in Blood by Automated coun4.1-10.5FPaulding County HospitalLipid Panelon 11-28-2024 Cholesterol [Mass/Vol]152 mg/iWEqlyaf818-083Oed [facility] Physician GroupComment on above:Order Comment: Reason for Exam Hyperlipidemia Reason for Exam: HyperlipidemiaResult Comment: Chol less than 200 mg/dl low risk Chol 201-239 mg/dl borderline risk Chol 240 mg/dl and greater high riskPerformed By: #### LIPID, CMP, PSAS, TSH3, CBC #### [facility] [address] [place] [address] USACholesterol in HDL [Mass/Vol]40 mg/uUSpkuxr75-42Pqq [facility] Physician GroupComment on above:Order Comment: Reason for Exam Hyperlipidemia Reason for Exam: HyperlipidemiaResult Comment: HDL CHOL ATP-III CLASSIFICATION Cardiovascular Risk HDL > or equal to 60 mg/dL LOW HDL < 40 mg/dL HIGHPerformed By: #### LIPID, CMP, PSAS, TSH3, CBC #### [facility] [address] [place] [address] USACholesterol.total/Cholesterol in HDL [Mass ratio]3.8 {ratio}Normal<5.0The [facility] Physician GroupComment on above:Order Comment: Reason for Exam Hyperlipidemia Reason for Exam: HyperlipidemiaPerformed By: #### LIPID, CMP, PSAS, TSH3, CBC #### [facility] [address] [place] [address] USALDL Cholesterol,Jwlrdyrapa88 mg/dLNormal0-100The [facility] Physician GroupComment on above:Order Comment: Reason for Exam Hyperlipidemia Reason for Exam: HyperlipidemiaResult Comment: LDL ATP III CLASSIFICATION LDL less than 100 mg/dL Optimal LDL 100-129 mg/dL Near or above optimal LDL 130-159 mg/dL Borderline high LDL 160-189 mg/dL High LDL greater than 189 mg/dL Very highPerformed By: #### LIPID, CMP, PSAS, TSH3, CBC #### [facility] [address] [place] [address] USATriglyceride w/Ngexyi292 mg/dLNormal0-149The [facility] Physician GroupComment on above:Order Comment: Reason for Exam Hyperlipidemia Reason for Exam: HyperlipidemiaResult Comment: TRIG ATP III CLASSIFICATION TRIG less than 150 mg/dL Normal TRIG 150-199 mg/dL Borderline high TRIG 200-500 mg/dL High TRIG greater than 500 mg/dL Very high Standard traceable to the Center for Disease Conrtrol and Prevention (CDC) test method.Performed By: #### LIPID, CMP, PSAS, TSH3, CBC #### [facility] [address] [place] [address] USAVLDL ICPWOPRWGRP90 mg/dLNormalThe [facility] Physician GroupComment on above:Order Comment: Reason for Exam Hyperlipidemia Reason for Exam: HyperlipidemiaPerformed By: #### LIPID, CMP, PSAS, TSH3, CBC #### [facility] [address] [place] [address] USALymphocytes Auto (Bld) [#/Vol]Ordered By: Ellen Crabtree on 81-12-6754Hvhvzmbaxee (Bld) [#/Vol]Lymphocytes [#/volume] in Blood by Automated count1.00-4.8Nor[facility] HospitalLymphocytes/100 WBC Auto (Bld) Ordered By: Ellen Crabtree on 68-50-6032Msobghwqwmc/100 WBC (Bld)Lymphocytes/100 leukocytes in Blood by Automated count.[facility] Memorial HospitalMCH Auto (RBC) [Entitic mass]Ordered By: Ellen Crabtree on 43-59-2219HUC (RBC) [Entitic mass]MCH [Entitic mass] by Automated count27.5-35.2FPaulding County HospitalMCHC Auto (RBC) [Mass/Vol]Ordered By: Ellen Crabtree on 71-67-8564PXQD (RBC) [Mass/Vol]MCHC [Mass/volume] by Automated yovrlEen67.5-35.6FPaulding County HospitalMCV Auto (RBC) [Entitic vol]Ordered By: Ellen Crabtree on 11-28-2024 MCV (RBC) [Entitic vol]MCV [Entitic volume] by Automated count83.5-101Nor[facility] HospitalMonocytes Auto (Bld) [#/Vol]Ordered By: Ellen Crabtree on 28-90-8743Jmjjaezos (Bld) [#/Vol]Automated blood monocyte count0.0-0.8[facility] HospitalMonocytes/100 WBC Auto (Bld)Ordered By: Ellen Crabtree on 68-03-0141Jldwyaibn/100 WBC (Bld)Automated monocyte %.[facility] HospitalNeutrophils Auto (Bld) [#/Vol]Ordered By: Ellen Crabtree on 11-28-2024 Neutrophils (Bld) [#/Vol]Neutrophils [#/volume] in Blood by Automated count 1.8-7.7FPaulding County HospitalNeutrophils/100 WBC Auto (Bld)Ordered By: Ellen Crabtree on 45-49-2423Oxerwdppyzx/100 WBC (Bld)Automated neutrophil %. [facility] HospitalNo Panel InformationOrdered By: Ellen Crabtree on 01-11-2298Zblloyzko GFR (CKD-EPI)> 60.0 mL/MinNorwalk Memorial Hospital Pharmacy Creatinine Clearance (ChemN/[facility] CampusNucleated erythrocytes [Presence] in Blood by Automated countOrdered By: Ellen Crabtree on 64-50-0849Mhjczyuuj RBC Auto Ql (Bld)Nucleated erythrocytes [Presence] in Blood by Automated count0-0.5FPaulding County HospitalPSA Screen (Yearly Only) on 78-07-8048ZDP Screen (Yearly Only)0.710 ng/mLNormal0.000-4.000The [facility] Physician GroupComment on above:Order Comment: Is patient <50 yrs? Medicare does not pay <50.: N What is the date of the last PSA Screen?: 143944 Is Medicare the insurance?: Y Did you verify eligibility (Dx Time) check TestViewGp: YES TO ALLResult Comment: Serial tumor marker results determined by assays using different manufacturers or methods may not be comparable. [facility] stylist apprentice and method: [employer] DXI, CHEMILUMINESCENT IMMUNOASSAY. PERFORMED BY: [place] [address] PATHOLOGIST DIRECTOR ADULT HEIDY MIRANDA M.D.Performed By: #### LIPID, CMP, PSAS, TSH3, CBC #### [place] [address] USAPlatelet mean volume Auto (Bld) [Entitic vol]Ordered By: Ellen Crabtree on 40-66-9662Cpovcqlf mean volume (Bld) [Entitic vol]Platelet mean volume [Entitic volume] in Blood by Automated countHigh6.6-10.1FPaulding County HospitalPlatelets Auto (Bld) [#/Vol]Ordered By: Ellen Crabtree on 60-61-9521Ffsiulyks (Bld) [#/Vol]Platelets [#/volume] in Blood by Automated xqplnCog028-244ZobtxsatqNorwalk Memorial HospitalPotassium [Moles/volume] in Serum or PlasmaOrdered By: Ellen Crabtree on 14-90-8472Heenhwuah [Moles/Vol] Potassium [Moles/volume] in Serum or Plasma3.5-5.1FPaulding County HospitalProstate specific Ag [Mass/volume] in Serum or PlasmaOrdered By: Ellen Crabtree on 42-32-8703Kkdsrkuv specific Ag [Mass/Vol]Prostate specific Ag [Mass/volume] in Serum or Plasma0.000-4.000[facility] Comment on above:Serial tumor marker results determined by assays using different manufacturers or methods may not be comparable.[facility] stylist apprentice and method:NAMITA Palmer HargreavesEL DXI, CHEMILUMINESCENT IMMUNOASSAY.Protein [Mass/volume] in Serum or PlasmaOrdered By: Ellen Crabtree on 74-46-8682Ifgcttc [Mass/Vol]Protein [Mass/volume] in Serum or Plasma6.4-8.9Nor[facility] HospitalRBC Auto (Bld) [#/Vol]Ordered By: Ellen Crabtree on 08-87-2927WDA (Bld) [#/Vol]Erythrocytes [#/volume] in Blood by Automated count3.90-5.[address] [facility] Medical Centererum or plasma albumin/globulin mass ratio Ordered By: Ellen Crabtree on 31-37-8894Ppdbvfv/Globulin [Mass ratio]Serum or plasma albumin/globulin mass ratioMercy Health St. Vincent Medical Centererum or plasma anion gap determinationOrdered By: Ellen Crabtree on 29-90-4302Flcqk gap [Moles/Vol] Serum or plasma anion gap determination6.0-15.0[facility] Serum or plasma total cholesterol/high density lipoprotein (HDL) cholesterol mass ratOrdered By: Ellen Crabtree on 54-94-7910Auicokaufzt.total/Cholesterol in HDL [Mass ratio]Serum or plasma total cholesterol/high density lipoprotein (HDL) cholesterol mass rat<5.0[facility] Vincent Medical Centerodium [Moles/volume] in Serum or PlasmaOrdered By: Ellen Crabtree on 48-31-7475Aoghcb [Moles/Vol]Sodium [Moles/volume] in Serum or Wfciva906-217WwdcjtfgoNorwalk Memorial HospitalThyroid Stimulating Hormoneon 74-49-5655VFI Qn1.06 m[IU]/LNormal0.45-5.33The [facility] Physician GroupComment on above:Order Comment: Reason for Exam Hyperlipidemia Reason for Exam: HyperlipidemiaResult Comment: PERFORMED BY: [place] [address] PATHOLOGIST DIRECTOR ADULT HEIDY MIRANDA M.D.Performed By: #### LIPID, CMP, PSAS, TSH3, CBC #### [place] [address] USAThyrotropin [Units/volume] in Serum or PlasmaOrdered By: Ellen Crabtree on 35-12-6967AIL QnThyrotropin [Units/volume] in Serum or Plasma 0.45-5.33[facility] HospitalTriglyceride [Mass/volume] in Serum or PlasmaOrdered By: Ellen Crabtree on 43-29-0920Mjejfkbqxcis [Mass/Vol]Triglyceride [Mass/volume] in Serum or Plasma0-149Nor[facility] HospitalComment on above:TRIG ATP III CLASSIFICATIONTRIG less than 150 mg/dL NormalTRIG 150-199 mg/dL Borderline highTRIG 200-500 mg/dL High TRIG greater than 500 mg/dL Very highStandard traceable to the Center for Disease Conrtrol and Prevention (CDC) test method.Urea nitrogen [Mass/volume] in Serum or PlasmaOrdered By: Ellen Crabtree on 05-71-6038Octo nitrogen [Mass/Vol]Urea nitrogen [Mass/volume] in Serum or Plasma7-25[facility] HospitalUrology Office/Clinic Noteon 48-60-8330Nkqbrrc Office/Clinic NoteUrology Office/Clinic Note Chief Complaint Concern for UTI, [...] prior to abx. Ordered: Change cystostomy tube/simple 38897 E&M of Est. Patient Low 20-29 Min 42341 2. Urinary retention (R33.9: Retention of urine, unspecified) Chronic. SP changed. Return in 4 weeks for next change. Ordered: Change cystostomy tube/simple 42183 Follow-up With When Contact Information RODRI KHAN, LYN Crum, URL In 1 month [address] [place] [address] Additional Instructions: Patient Education Antibiotic [...] using ultrasound (US) guidance (01/22/2023), Procedure on prostate(03/08/2019), TURP - Transurethral resection of prostate (03/08/2019), [...] vaccine 01/27/2002 Recorded pneumococcal 23-valent vaccine 08/13/1995 RecordedMercy Health Lorain HospitalComment on above:Result Comment: Electronically Signed By: LYN MACE PA-C\.br\Date and Time Signed: 11/28/2515:28 ESTWBC Auto (Bld) [#/Vol] Ordered By: Ellen Crabtree on 92-08-3250DOC (Bld) [#/Vol]Leukocytes [#/volume] in Blood by Automated count4.1-10.5FPaulding County HospitalAmbulatory Visit Summaryon 97-62-3687Huegniidpe Visit SummaryAmbulatory Visit Summary ALISIA CORREA :1960 Visit Date:10/28/2024 [...] using ultrasound (US) guidance (01/22/2023), Procedure on prostate(03/08/2019), TURP - Transurethral resection of prostate (03/08/2019), Injection of therapeutic substance into bladder wall (01/25/2019), Transurethral insertion of prostatic urethral lift implant (01/26/2018), Cystoscopy (12/01/2017), Urodynamics (10/28/2017), Colonoscopy, Gastric bypass, Knee replacement, Shoulder, Tonsillectomy. What to do next Scheduled Follow-Up Appointments Thursday 11:20 AM EST With: LYN MACE PA-C Where: [facility] [address] [id number]- Medications What How Much When Instructions Unchanged [...] you for choosing us for your care. [facility] Urineon 31-58-1024Tszhuviv identified Cx Nom (U)Microbiology PROCEDURE: Urine Culture [R1] SOURCE: U Cath BODY SITE: COLLECTED DATE/TIME: 09/27/2024 12:20 EST RECEIVED DATE/TIME: 09/27/2024 18:26 EST START DATE/TIME: 09/27/2024 18:26 EST FREE TEXT SOURCE: suprapubic chronic carrington RODRI KHAN, LYN HURLEY PA-C FINAL REPORTS Final Report [] Verified Date/Time: 09/29/2024 09:03 EST >100,000 cfu/ml Klebsiella pneumoniae 50,000 cfu/ml Enterobacter cloacae SUSCEPTIBILITY RESULTS LEGEND: S=Susceptible, N/R=Not Reported, Blank=Data [...] Locations R1: This test was performed at: [facility], [address] [place] [address], [address] , [place], HoqagzNrlkduMercy Health Lorain HospitalComment on above:Performed By: #### [id number] #### [facility] [address] [place] [address] 08164CW facial bones wo conon 24-21-7106FP facial bones wo [facility] Main [place] [address] [place] [address] Scan Report Signed Patient: Alisia Correa SR MR#: [id number] : 1960 Acct:[id number] Age/Sex: 63 / M ADM Date: 09/27/24 Loc: ER Room: Type: PRE ER Attending Dr: Copies to: Benitez Ortega DO Ordering Provider: Benitez Ortega DO Date of Service: 09/27/24 CT/CT cervical spine wo con: fall ([id number]) CT/CT facial bones wo con: fall ([id number]) CT/CT head/brain wo con: fall CT BRAIN/FACIAL [...] FRACTURE Impression dictated by: Steven Shah Jr., Gian09/27/2024 5:11 PM Dictation Location: [place] [address] Transcribed By: [facility] 09/27/241710 Dictated By: Steven Shah Jr, DO 09/27/24 170 Signed By: 09/27/24 [facility] Physician GroupECG 12 lead ECGon 87-96-9330YTJ 12 lead [facility] Main [place] [address] [place] [address] Electrocardiograph Report Signed Patient: Alisia Correa SR MR#: [id number] : 1960 Acct:[id number] Age/Sex: 63 / M ADM Date: 09/27/24 Loc: ER Room: Type: [facility] ER Attending Dr: Ordering Provider: Benitez Ortega [...] sinus rhythm Confirmed by Benitez ORTEGA DO ([id number]) on 09/27/2024 8:17:17 PM Referred By: Electronically Signed By: Benitez ORTEGA DO Transcribed By: MUS Signed By Benitez Ortega, DO 1 11/28/[address] [place] [address] Physician GroupUrology Office/Clinic Noteon 54-06-4936Ywferpm Office/Clinic NoteUrology Office/Clinic Note Chief Complaint catheter change HPI [...] E&M of New Patient Low 30-44 Min 08830 2. Urinary retention (R33.9: Retention of urine, unspecified) Carrington changed. Return in 4 weeks for next change. Ordered: Change cystostomy tube/simple 53549 E&M of New Patient Low 30-44 Min 83999 Follow-up With When Contact Information RODRI KHAN, LYN Crum, URL In 1 month [address] [place] [address] Additional Instructions: Patient Education Indwelling [...] using ultrasound (US) guidance (01/22/2023), Procedure on prostate(03/08/2019), TURP - Transurethral resection of prostate (03/08/2019), [...] vaccine 01/27/2002 Recorded pneumococcal 23-valent vaccine 08/13/1995 RecordedNoCleveland Clinic Akron General Lodi HospitalComment on above:Result Comment: Electronically Signed By: LYN MACE PA-Cbr\Date and Time Signed: 09/27/2412:38 ESTC Urineon 06-16-2024 Bacteria identified Cx Nom (U)Microbiology PROCEDURE: Urine Culture [R1] SOURCE: U Suprapubic BODY SITE: COLLECTED DATE/TIME: 06/14/2024 15:25 EDT RECEIVED DATE/TIME: 06/14/2024 18:43 EDT START DATE/TIME: 06/14/2024 18:43 EDT FREE TEXT SOURCE: WALTER YBARRA, Fidel IBARRA MD, Fidel Dawson FINAL REPORTS Final Report [] Verified Date/Time: 06/16/2024 12:06 EDT 75,000 cfu/ml Enterobacter cloacae 50,000 cfu/ml Klebsiella pneumoniae SUSCEPTIBILITY RESULTS LEGEND: S=Susceptible, N/R=Not Reported, Blank=Data [...] Locations R1: This test was performed at: [facility], [address] [place] [address], [address] [place] [address], OzndfrHgubyvMercy Health Lorain HospitalComment on above:Performed By: #### [id number] #### [facility] [address] [place], [place] [address]Ambulatory Visit Summaryon 08-32-1314Yfywvpyuco Visit Summary Ambulatory Visit Summary ALISIA CORREA [...] using ultrasound (US) guidance (01/22/2023), Procedure on prostate(03/08/2019), TURP - Transurethral resection of prostate (03/08/2019), Injection of therapeutic substance into bladder wall (01/25/2019), Transurethral insertion of prostatic urethral lift implant (01/26/2018), Cystoscopy (12/01/2017), Urodynamics (10/28/2017), Colonoscopy, Gastric bypass, Knee replacement, Shoulder, Tonsillectomy. What to do next Scheduled Follow-Up Appointments 2023 11:00 AM EDT With: Madeline Harry Where: [facility] [address] [phone]- Medications What How Much When Instructions Unchanged [...] you for choosing us for your care. NormalFisher Mercy Medical CenterBasophils Auto (Bld) [#/Vol]on 91-02-7833Oihgokwad (Bld) [#/Vol]0.0 10 3/uL0.0-0.1FPaulding County HospitalBasophils/100 WBC Auto (Bld)on 53-98-3059Aqhgjoqpp/100 WBC (Bld)0.1 %Low 0.2-2.0[facility] HospitalEosinophils/100 WBC Auto (Bld)on 63-81-9765Nuggcghmgfu/100 WBC (Bld)0.0 %Low0.9-7.0[facility] HospitalErythrocyte distribution width Auto (RBC) [Ratio]on 83-97-3989Ckdfnluitxg distribution width (RBC) [Ratio]15.6 %High11.0-15.0[facility] HospitalEstimated glomerular filtration rate (GFR) non- Americanon 34-18-9610YKJ/1.73 sq M.predicted among non-blacks MDRD (S/P/Bld) [Vol rate/Area]37 mL/min/{1.73_m2}Low>=60[facility] HospitalGlobulin Calc (S) [Mass/Vol]on 47-74-7698Xvlveqpf (S) [Mass/Vol]4.5 g/dLNorwalk Memorial HospitalHematocrit Auto (Bld) [Volume fraction]on 04-27-2024 Hematocrit (Bld) [Volume fraction]30.1 %Low42.0-54.0[facility] HospitalHemoglobin [Mass/volume] in Bloodon 83-73-1314Fwljbzcwkx (Bld) [Mass/Vol] 9.6 g/dLLow14.0-18.0[facility] HospitalLaboratory - Chemistry and Chemistry - challengeon 46-28-4312Fozgcyb [Mass/Vol]2.1 g/dLLow3.4-5.0[facility] HospitalALP [Catalytic activity/Vol]121 U/RPgrk17-478WvyeoeubqNorwalk Memorial HospitalALT [Catalytic activity/Vol]U/PCxe68-02QrnzrdmvxNorwalk Memorial HospitalAST [Catalytic activity/Vol]10 U/GVgj67-60CwitxagtaNorwalk Memorial HospitalBilirubin [Mass/Vol]0.3 mg/dL0.2-1.0[facility] HospitalCalcium [Mass/Vol]8.6 mg/dL8.5-10.1FPaulding County Hospital Chloride [Moles/Vol]105 mmol/Z93-572UqhbasrdvNorwalk Memorial HospitalCO2 [Moles/Vol]30.6 mmol/L21.0-32.0[facility] HospitalCreatinine [Mass/Vol]1.83 mg/dLHigh0.70-1.30[facility] HospitalGFR/1.73 sq M.predicted MDRD (S/P/Bld) [Vol rate/Area]45 mL/min/{1.73_m2}Low>=60[facility] HospitalGlucose [Mass/Vol]153 mg/nUOdag29-412YtsmfskjrNorwalk Memorial HospitalPotassium [Moles/Vol]4.2 mmol/L3.5-5.1FPaulding County HospitalProtein [Mass/Vol]6.6 g/dL6.4-8.2FSt. Mary's Medical Center, Ironton Campusodium [Moles/Vol]139 mmol/D950-204QhonftilnNorwalk Memorial HospitalUrea nitrogen [Mass/Vol]41.0 mg/dLHigh7.0-18.0[facility] HospitalUrea nitrogen/Creatinine [Mass ratio]22.4 mg/mgNorwalk Memorial Hospital Laboratory - Hematology and Cell countson 61-93-1836Usiwffxc granulocytes/100 WBC (Bld)0.4 %0.0-0.5FPaulding County HospitalLeukocytes [#/volume] corrected for nucleated erythrocytes in Blood by Automated counon 13-59-3129WZT corrected for nucl RBC Auto (Bld) [#/Vol]6.8 10 3/uL4.0-11.0[facility] HospitalLymphocytes Auto (Bld) [#/Vol]on 54-47-5561Pbtagjhdrrr (Bld) [#/Vol]0.8 10 3/uLLow1.2-3.8[facility] HospitalLymphocytes/100 WBC Auto (Bld)on 89-88-1286Nyrfbhkvvby/100 WBC (Bld)12.3 %Low20.5-60.0[facility] HospitalMCH Auto (RBC) [Entitic mass]on 56-11-8689TVF (RBC) [Entitic mass]28.0 pg25.9-34.0[facility] HospitalMCHC Auto (RBC) [Mass/Vol]on 64-95-1788XQOO (RBC) [Mass/Vol]31.9 g/dL29.9-35.2FPaulding County HospitalMCV Auto (RBC) [Entitic vol]on 27-27-5431BWJ (RBC) [Entitic vol] 87.8 fL80.0-94.0[facility] HospitalMonocytes Auto (Bld) [#/Vol]on 90-36-4531Hgopplsco (Bld) [#/Vol]0.2 10 3/uLLow0.3-0.8[facility] HospitalMonocytes/100 WBC Auto (Bld)on 47-55-8667Lkvuswwyv/100 WBC (Bld)3.1 % 1.7-12.0[facility] HospitalNeutrophils Auto (Bld) [#/Vol]on 44-51-8947Oospgyrpche (Bld) [#/Vol]5.7 10 3/uL1.4-6.5FPaulding County HospitalNeutrophils/100 WBC Auto (Bld)on 32-89-0978Eyskktigibz/100 WBC (Bld)84.1 % High43.0-75.0[facility] HospitalNo Panel Informationon 04-27-2024 Eosinophils # (Auto)0.0 10 3/uL0.0-0.7FPaulding County HospitalImmature Granulocyte # (Auto)0.03 10 3/uL0.00-0.03[facility] Platelet mean volume Auto (Bld) [Entitic vol]on 14-66-5508Vcniscmq mean volume (Bld) [Entitic vol]12.9 fL9.5-13.5FPaulding County HospitalPlatelets Auto (Bld) [#/Vol]on 77-99-7628Gyryxlrys (Bld) [#/Vol]173 10 3/nR994-955 [facility] HospitalRBC Auto (Bld) [#/Vol]on 65-00-6073ZCO (Bld) [#/Vol]3.43 10 6/uLLow4.70-6.10[facility] Medical Centererum or plasma albumin/globulin mass ratioon 54-03-3822Zmygsgc/Globulin [Mass ratio]0.5 {ratio} [facility] Medical Centererum or plasma anion gap determinationon 93-36-8838Gttxt gap [Moles/Vol]7.6 mmol/LFPaulding County Hospital Ammonium urate crystals detection in stone by infrared spectroscopyon 04-26-2024 Ammonium urate crystals Infrared spectroscopy Ql (Stone)TNP.[facility] HospitalBasophils Auto (Bld) [#/Vol]on 35-70-8638Wjtlrsask (Bld) [#/Vol] 0.0 10 3/uL0.0-0.1FPaulding County HospitalBasophils/100 WBC Auto (Bld) on 84-47-7116Tbatirqpp/100 WBC (Bld)0.1 %Low0.2-2.0[facility] HospitalCalcium bilirubinate measurementon 53-44-7955Jbxvsxt bilirubinate (Stone) [Mass fraction]TNP.[facility] HospitalCalcium carbonate (Stone) [Mass fraction]on 40-90-0232Fkonp Calcium CarbonateTNP.[facility] HospitalCalcium hydrogen phosphate dihydrate (Stone) [Mass fraction]on 34-24-3104Scoce Calcium Hydrogen PhosphateTNP.[facility] Calcium oxalate dihydrate crystals detection in stone by infrared spectroscopyon 23-87-6240Uidvpko oxalate dihydrate crystals Infrared spectroscopy Ql (Stone)60 %.[facility] HospitalCalcium oxalate monohydrate crystal detection on 80-08-9504Sloaqui oxalate monohydrate crystals Infrared spectroscopy Ql (Stone)40 %.[facility] HospitalCalcium phosphate measurementon 56-92-0606Oojkztl phosphate (Stone) [Mass fraction]TNP.[facility] HospitalCalculus analysis interpretation in stoneon 29-38-9334Zlevbpde analysis [Interp]TNP.[facility] HospitalCalculus analysis [Interp] Comment.[facility] HospitalComment on above:Physician questions regarding Calculi Analysis contactLabCorp at: [phone].Calculus analysis with calculus photography interpretation in stoneon 55-16-6369Xeewjzxi analysis with calculus photography [Interp]Comment.[facility] Comment on above:Photograph will follow under a separate coverCellular material measurement in stone by estimated (mass/mass)on 04-96-1935Mdpgrdzs material Est (Stone) [Mass/Mass]TNP.[facility] HospitalCholesterol [Mass/volume] in Serum or Plasmaon 91-72-7927Zphmmgcxuus [Mass/Vol]TNP.[facility] HospitalComposition of stoneon 43-34-0601Khecnwvprhf Nom (Stone) Comment.[facility] HospitalComment on above:Percentage (Represents the % composition)Cystine measurementon 44-37-9130Lguvwln (Unsp spec) [Moles/Vol]TNP.[facility] HospitalDetermination of color of calculuson 81-09-6622Xqrmh (Stone)Brown.[facility] Eosinophils/100 WBC Auto (Bld)on 69-41-7345Menukaakhvj/100 WBC (Bld)1.0 %0.9-7.0 [facility] HospitalErythrocyte distribution width Auto (RBC) [Ratio]on 72-95-5309Nwxbmfsbqno distribution width (RBC) [Ratio]15.8 %High 11.0-15.0[facility] HospitalEstimated glomerular filtration rate (GFR) non- Americanon 76-42-7776ZVO/1.73 sq M.predicted among non-blacks MDRD (S/P/Bld) [Vol rate/Area]28 mL/min/{1.73_m2}Low>=60[facility] HospitalGlobulin Calc (S) [Mass/Vol]on 90-50-2893Hkciygkw (S) [Mass/Vol] 4.1 g/dLNorwalk Memorial HospitalHematocrit Auto (Bld) [Volume fraction] on 63-10-1128Xgtqfprbvy (Bld) [Volume fraction]30.3 %Low42.0-54.0[facility] HospitalHemoglobin [Mass/volume] in Bloodon 42-85-4937Knjogmewll (Bld) [Mass/Vol]9.7 g/dLLow14.0-18.0[facility] HospitalLaboratory - Chemistry and Chemistry - challengeon 71-31-0405Aoyuinc [Mass/Vol]1.9 g/dLLow 3.4-5.0[facility] HospitalALP [Catalytic activity/Vol]122 U/LHigh 46-116Nor[facility] HospitalALT [Catalytic activity/Vol]U/IBuc75-94 [facility] HospitalAST [Catalytic activity/Vol]16 U/L15-37 [facility] HospitalBilirubin [Mass/Vol]0.5 mg/dL0.2-1.0[facility] HospitalCalcium [Mass/Vol]8.3 mg/dLLow8.5-10.1FPaulding County HospitalChloride [Moles/Vol]107 mmol/T40-415JxhuhqrgtNorwalk Memorial HospitalCO2 [Moles/Vol]29.0 mmol/L21.0-32.0[facility] Creatinine [Mass/Vol]2.32 mg/dLHigh0.70-1.30[facility] GFR/1.73 sq M.predicted MDRD (S/P/Bld) [Vol rate/Area]34 mL/min/{1.73_m2}Low>=60 [facility] HospitalGlucose [Mass/Vol]84 mg/gA69-292ZauzfgvsmNorwalk Memorial HospitalMagnesium [Mass/Vol]2.0 mg/dL1.8-2.4FPaulding County HospitalPotassium [Moles/Vol]3.7 mmol/L3.5-5.1FPaulding County HospitalProtein [Mass/Vol]6.0 g/dLLow6.4-8.2FPaulding County Hospital Sodium [Moles/Vol]142 mmol/L532-058TjbxmwujeNorwalk Memorial HospitalUrea nitrogen [Mass/Vol]55.0 mg/dLHigh7.0-18.0[facility] HospitalUrea nitrogen/Creatinine [Mass ratio]23.7 mg/mgNorwalk Memorial Hospital Laboratory - Hematology and Cell countson 81-75-9093Fqbjlmwy granulocytes/100 WBC (Bld)0.5 %0.0-0.5FPaulding County HospitalLeukocytes [#/volume] corrected for nucleated erythrocytes in Blood by Automated counon 11-05-8324HOR corrected for nucl RBC Auto (Bld) [#/Vol]13.9 10 3/uLHigh4.0-11.0[facility] HospitalLymphocytes Auto (Bld) [#/Vol]on 43-39-4418Foddpqkpxwh (Bld) [#/Vol]1.3 10 3/uL1.2-3.8[facility] HospitalLymphocytes/100 WBC Auto (Bld)on 84-40-2933Ghcuwlndgfe/100 WBC (Bld)9.7 %Low20.5-60.0[facility] HospitalH Auto (RBC) [Entitic mass]on 29-81-1143QPT (RBC) [Entitic mass]28.1 pg25.9-34.0[facility] HospitalHC Auto (RBC) [Mass/Vol]on 86-88-2085SPPE (RBC) [Mass/Vol]32.0 g/dL29.9-35.2FProMedica Defiance Regional HospitalV Auto (RBC) [Entitic vol]on 04-22-2538ZYN (RBC) [Entitic vol] 87.8 fL80.0-94.0[facility] HospitalMeasurement of proportion of calculus composed of dried blood (mass/mass)on 43-38-3048Jrorf.dried (Stone) [Mass fraction]TN.[facility] HospitalMonocytes Auto (Bld) [#/Vol] on 54-46-3617Nhecjhguq (Bld) [#/Vol]0.7 10 3/uL0.3-0.8[facility] HospitalMonocytes/100 WBC Auto (Bld)on 29-38-7832Sfrituwfu/100 WBC (Bld)5.2 % 1.7-12.0[facility] HospitalNeutrophils Auto (Bld) [#/Vol]on 72-65-0125Kzvtgxfyifc (Bld) [#/Vol]11.6 10 3/uLHigh1.4-6.5FPaulding County HospitalNeutrophils/100 WBC Auto (Bld)on 01-63-0526Bkzqwapftvz/100 WBC (Bld)83.5 %High43.0-75.0[facility] HospitalNewberyite crystals detection in stone by infrared spectroscopyon 71-03-9691Hraszymhgs crystals Infrared spectroscopy Ql (Stone)TN.[facility] HospitalNo Panel Informationon 75-84-7417Gudmh 2,[address] [address] Vincent Medical Centertone Analysis DisclaimerComment.[facility] HospitalComment on above:Calculi report will follow via computer, mail or courierdelivery.This test was developed and its performance characteristicsdetermined by [employer]. It has not been cleared or approvedby the Food and Drug Administration.Performed at: [facility] [address] [id number] Director: Diamond Phillips PhD, Phone: [phone] BilirubinateTNP. [facility] Medical Centerton Calcium PalmitateTNP.[facility] Calcium StearateTNP.[facility] Drug or MetaboliteTNP.[facility] Other Constituent TNP.[facility] XanthineTNP.[facility] HospitalEosinophils # (Auto)0.1 10 3/uL0.0-0.7FPaulding County HospitalImmature Granulocyte # (Auto)0.07 10 3/uLHigh0.00-0.03[facility] HospitalPlatelet mean volume Auto (Bld) [Entitic vol]on 21-51-5391Asbrbhmo mean volume (Bld) [Entitic vol]12.1 fL9.5-13.5FPaulding County Hospital Platelets Auto (Bld) [#/Vol]on 99-92-2333Chmwoyans (Bld) [#/Vol]140 10 3/uLLow 150-450Nor[facility] HospitalRBC Auto (Bld) [#/Vol]on 36-03-5060WAR (Bld) [#/Vol]3.45 10 6/uLLow4.70-6.10[facility] Medical Centererum or plasma albumin/globulin mass ratioon 91-74-0417Ecyxgws/Globulin [Mass ratio]0.5 {ratio}[facility] Medical Centererum or plasma anion gap determination on 51-53-6387Abtmc gap [Moles/Vol]9.7 mmol/LFPaulding County Hospital Size [Entitic volume] of Stoneon 87-52-1457Htja (Stone) [Entitic vol]2x2 mm. [facility] HospitalComment on above:Multiple pieces received. Dimensions of the largest piecereported.Sodium urate crystals detection in stone by infrared spectroscopyon 27-43-3159Feuhen urate crystals Infrared spectroscopy Ql (Stone)TNP.[facility] Vincent Medical Centerpecimen source subject [Type]on 79-69-8535Hnvscnej source subject NomComment.[facility] Comment on above:Right UreterTriamterene measurement in calculuson 04-26-2024 Triamterene (Stone) [Mass fraction]TNP.[facility] HospitalTriple phosphate/Total in Stoneon 50-45-9224Eedqvu phosphate (Stone) [Mass fraction]TNP .[facility] HospitalUric acid dihydrate crystals detection in stone by infrared spectroscopyon 53-54-5185Ksexp dihydrate crystals Infrared spectroscopy Ql (Stone)TNP.[facility] HospitalBasophils Auto (Bld) [#/Vol]on 31-91-7622Dkyvpbvua (Bld) [#/Vol]0.0 10 3/uL0.0-0.1FPaulding County HospitalBasophils/100 WBC Auto (Bld)on 37-29-8404Ccfozvmpu/100 WBC (Bld) 0.1 %Low0.2-2.0[facility] HospitalEosinophils/100 WBC Auto (Bld)on 85-20-6092Uelaoremimf/100 WBC (Bld)1.3 %0.9-7.0[facility] HospitalErythrocyte distribution width Auto (RBC) [Ratio]on 34-88-0945Mdatvvsuttj distribution width (RBC) [Ratio]14.8 %11.0-15.0[facility] Estimated glomerular filtration rate (GFR) non- Americanon 04-25-2024 GFR/1.73 sq M.predicted among non-blacks MDRD (S/P/Bld) [Vol rate/Area]32 mL/min/{1.73_m2}Low>=60[facility] HospitalGlobulin Calc (S) [Mass/Vol]on 56-76-5555Qirvpmjz (S) [Mass/Vol]3.5 g/dLNorwalk Memorial HospitalHematocrit Auto (Bld) [Volume fraction]on 30-73-0733Cvluzaguvp (Bld) [Volume fraction]22.3 %Low42.0-54.0[facility] HospitalComment on above:RESULTS CALLED TO Macrina NELSON)@BY KEREN Monroy at 0514 Hemoglobin [Mass/volume] in Bloodon 05-56-9743Ptsgulwvym (Bld) [Mass/Vol]7.0 g/dLLow14.0-18.0[facility] HospitalLaboratory - Chemistry and Chemistry - challengeon 17-67-4048Nvgyrby [Mass/Vol]1.7 g/dLLow3.4-5.0[facility] HospitalALP [Catalytic activity/Vol]95 U/Z94-335XjemoljsdNorwalk Memorial HospitalALT [Catalytic activity/Vol]U/CYap79-32YypcygkquNorwalk Memorial HospitalAST [Catalytic activity/Vol]14 U/CSoy47-22PwxelhrlrNorwalk Memorial HospitalBilirubin [Mass/Vol]0.4 mg/dL0.2-1.0[facility] HospitalCalcium [Mass/Vol]8.0 mg/dLLow8.5-10.1FPaulding County Hospital Chloride [Moles/Vol]111 mmol/SLuiu06-259HpvuauiimNorwalk Memorial HospitalCO2 [Moles/Vol]24.2 mmol/L21.0-32.0[facility] HospitalCreatinine [Mass/Vol]2.09 mg/dLHigh0.70-1.30[facility] HospitalGFR/1.73 sq M.predicted MDRD (S/P/Bld) [Vol rate/Area]39 mL/min/{1.73_m2}Low>=60[facility] HospitalGlucose [Mass/Vol]74 mg/kT25-850NwpiexnyaNorwalk Memorial HospitalPotassium [Moles/Vol]3.9 mmol/L3.5-5.1FPaulding County HospitalProtein [Mass/Vol]5.2 g/dLLow6.4-8.2FPaulding County Hospital Sodium [Moles/Vol]142 mmol/R137-052GkpwqgpasNorwalk Memorial HospitalUrea nitrogen [Mass/Vol]60.0 mg/dLHigh7.0-18.0[facility] HospitalUrea nitrogen/Creatinine [Mass ratio]28.7 mg/mgNorwalk Memorial Hospital Laboratory - Hematology and Cell countson 30-36-3468Aklxvijw granulocytes/100 WBC (Bld)0.4 %0.0-0.5FPaulding County HospitalLeukocytes [#/volume] corrected for nucleated erythrocytes in Blood by Automated counon 29-11-1883IAQ corrected for nucl RBC Auto (Bld) [#/Vol]13.8 10 3/uLHigh4.0-11.0[facility] HospitalLymphocytes Auto (Bld) [#/Vol]on 83-50-8232Trecbrmabvu (Bld) [#/Vol]1.7 10 3/uL1.2-3.8[facility] HospitalLymphocytes/100 WBC Auto (Bld)on 45-37-1686Kdixuxqspzh/100 WBC (Bld)12.3 %Low20.5-60.0[facility] HospitalH Auto (RBC) [Entitic mass]on 19-39-5006BBX (RBC) [Entitic mass]28.0 pg25.9-34.0[facility] HospitalMCHC Auto (RBC) [Mass/Vol]on 76-64-5796YJUD (RBC) [Mass/Vol]31.4 g/dL29.9-35.2FPaulding County HospitalMCV Auto (RBC) [Entitic vol]on 48-79-0340IGH (RBC) [Entitic vol] 89.2 fL80.0-94.0[facility] HospitalMonocytes Auto (Bld) [#/Vol]on 97-92-7904Egxbvhmuz (Bld) [#/Vol]0.8 10 3/uL0.3-0.8[facility] HospitalMonocytes/100 WBC Auto (Bld)on 36-10-0529Xvrqxoprp/100 WBC (Bld)6.0 % 1.7-12.0[facility] HospitalNeutrophils Auto (Bld) [#/Vol]on 82-88-9837Cenyqttzhft (Bld) [#/Vol]11.0 10 3/uLHigh1.4-6.5FPaulding County HospitalNeutrophils/100 WBC Auto (Bld)on 36-74-2906Fygdpbjvmzh/100 WBC (Bld)79.9 %High43.0-75.0[facility] HospitalNo Panel Informationon 55-08-9531Mcuptvwhchj # (Auto)0.2 10 3/uL0.0-0.7FPaulding County HospitalImmature Granulocyte # (Auto)0.06 10 3/uLHigh0.00-0.03[facility] HospitalPlatelet mean volume Auto (Bld) [Entitic vol]on 61-59-9787Jrcbkpfi mean volume (Bld) [Entitic vol]12.9 fL9.5-13.5FPaulding County Hospital Platelets Auto (Bld) [#/Vol]on 19-84-5667Adtpqwlwd (Bld) [#/Vol]129 10 3/uLLow 150-450Nor[facility] HospitalRBC Auto (Bld) [#/Vol]on 20-45-1397CHX (Bld) [#/Vol]2.50 10 6/uLLow4.70-6.10[facility] Medical Centererum or plasma albumin/globulin mass ratioon 63-18-7339Fgkshbd/Globulin [Mass ratio]0.5 {ratio}[facility] Medical Centererum or plasma anion gap determination on 66-10-0816Jevgc gap [Moles/Vol]10.7 mmol/LFPaulding County Hospital Basophils/100 WBC Manual cnt (Bld)on 52-25-3479Geafytoen/100 WBC (Bld)0.0 %Low 0.2-2.0[facility] HospitalEosinophils/100 WBC Manual cnt (Bld)on 14-95-7566Jkdngaoydpw/100 WBC (Bld)0.0 %Low0.9-7.0[facility] HospitalErythrocyte distribution width Auto (RBC) [Ratio]on 25-60-1115Tuwgotmbsuq distribution width (RBC) [Ratio]14.6 %11.0-15.0[facility] Estimated glomerular filtration rate (GFR) non- Americanon 04-24-2024 GFR/1.73 sq M.predicted among non-blacks MDRD (S/P/Bld) [Vol rate/Area]33 mL/min/{1.73_m2}Low>=60[facility] HospitalGlobulin Calc (S) [Mass/Vol]on 44-06-9837Njucsngp (S) [Mass/Vol]3.7 g/dLNorwalk Memorial HospitalHematocrit Auto (Bld) [Volume fraction]on 59-48-5607Xqrajlxdde (Bld) [Volume fraction]25.9 %Low42.0-54.0[facility] HospitalHemoglobin [Mass/volume] in Bloodon 31-74-0473Uksngonglg (Bld) [Mass/Vol]8.2 g/dLLow 14.0-18.0[facility] HospitalLaboratory - Chemistry and Chemistry - challengeon 63-90-8095Dsmyqmd [Moles/Vol]1.9 mmol/L0.4-2.0[facility] HospitalAlbumin [Mass/Vol]1.8 g/dLLow3.4-5.0[facility] HospitalALP [Catalytic activity/Vol]95 U/C39-070PhldzwoqoNorwalk Memorial Hospital ALT [Catalytic activity/Vol]U/AStk28-84IjiigsbynNorwalk Memorial HospitalAST [Catalytic activity/Vol]10 U/PYqc68-59CuujzodmuNorwalk Memorial HospitalBilirubin [Mass/Vol]0.7 mg/dL0.2-1.0[facility] HospitalCalcium [Mass/Vol]7.9 mg/dLLow8.5-10.1FPaulding County HospitalChloride [Moles/Vol]111 mmol/L Qtcp26-519TlzvtlezzNorwalk Memorial HospitalCO2 [Moles/Vol]23.5 mmol/L21.0-32.0 [facility] HospitalCreatinine [Mass/Vol]2.02 mg/dLHigh0.70-1.30 [facility] HospitalGFR/1.73 sq M.predicted MDRD (S/P/Bld) [Vol rate/Area]40 mL/min/{1.73_m2}Low>=60[facility] HospitalGlucose [Mass/Vol]97 mg/qY71-329Tgxsfpyvy Regional Medical CenterPotassium [Moles/Vol] 3.8 mmol/L3.5-5.1FPaulding County HospitalProtein [Mass/Vol]5.5 g/dLLow 6.4-8.2FSt. Mary's Medical Center, Ironton Campusodium [Moles/Vol]142 mmol/O285-817 [facility] HospitalUrea nitrogen [Mass/Vol]59.0 mg/dLHigh7.0-18.0 [facility] HospitalUrea nitrogen/Creatinine [Mass ratio]29.2 mg/mg [facility] HospitalLaboratory - Hematology and Cell countson 43-78-9502Kafs form neutrophils/100 WBC (Bld)5.0 %0-5FPaulding County HospitalLymphocytes/100 WBC (Bld)1.0 %Low20.5-60.0[facility] HospitalMonocytes/100 WBC (Bld)1.0 %Low1.7-12.0[facility] Leukocytes [#/volume] corrected for nucleated erythrocytes in Blood by Automated counon 86-65-0060UJI corrected for nucl RBC Auto (Bld) [#/Vol]37.6 10 3/uLHigh 4.0-11.0[facility] HospitalComment on above:RESULTS CALLED TO [facility] Auto (RBC) [Entitic mass]on 34-06-2447FGH (RBC) [Entitic mass]29.0 pg25.9-34.0[facility] HospitalMCHC Auto (RBC) [Mass/Vol]on 42-94-8757SPTX (RBC) [Mass/Vol]31.7 g/dL29.9-35.2FPaulding County HospitalMCV Auto (RBC) [Entitic vol]on 97-11-3189IBZ (RBC) [Entitic vol]91.5 fL 80.0-94.0[facility] HospitalNo Panel Informationon 04-24-2024 Absolute Basophils (Manual)0.00 10 3/uL0.00-0.10[facility] HospitalBand Neutrophils # (Manual)1.9 10 3/uLHigh0.0-0.3FPaulding County HospitalEosinophils # (Manual)0.00 10 3/uL0.00-0.70[facility] HospitalLymphocytes # (Manual)0.37 10 3/uLLow1.20-3.80[facility] HospitalMonocytes # (Manual)0.37 10 3/uL0.30-0.80[facility] Centeregmented Neutrophils # (Manual)34.96 10 3/uLHigh1.4-6.5FPaulding County HospitalPlatelet mean volume Auto (Bld) [Entitic vol]on 45-79-6588Cvuuoqga mean volume (Bld) [Entitic vol]12.8 fL9.5-13.5FPaulding County HospitalPlatelets Auto (Bld) [#/Vol]on 86-38-9139Fscqubioz (Bld) [#/Vol]195 10 3/pL825-905DmucwxnuxNorwalk Memorial HospitalRBC Auto (Bld) [#/Vol] on 28-47-7283MWZ (Bld) [#/Vol]2.83 10 6/uLLow4.70-6.10[facility] Medical Centeregmented neutrophils/100 WBC Manual cnt (Bld)on 50-40-1301Agzoygwri neutrophils/100 WBC (Bld)93.0 %[facility] Medical Centererum or plasma albumin/globulin mass ratioon 57-39-0113Wyuggol/Globulin [Mass ratio]0.5 {ratio} [facility] Medical Centererum or plasma anion gap determinationon 26-29-2035Ndfbn gap [Moles/Vol]11.3 mmol/LFSt. Mary's Medical Center, Ironton Campuserum procalcitonin measurementon 15-18-8818Kbuvsdvalsvmw [Mass/Vol]66.17 ng/mLHigh 0.00-0.50[facility] HospitalBasophils Auto (Bld) [#/Vol]on 78-41-0287Puwgfkcod (Bld) [#/Vol]0.0 10 3/uL0.0-0.1FPaulding County HospitalBasophils/100 WBC Auto (Bld)on 36-95-8482Vwkjqhimk/100 WBC (Bld)0.2 % 0.2-2.0[facility] HospitalEosinophils/100 WBC Auto (Bld)on 36-27-1629Bcndyfilxii/100 WBC (Bld)0.3 %Low0.9-7.0[facility] HospitalErythrocyte distribution width Auto (RBC) [Ratio]on 51-36-9225Mpsszxllfpp distribution width (RBC) [Ratio]14.5 %11.0-15.0[facility] Estimated glomerular filtration rate (GFR) non- Americanon 04-23-2024 GFR/1.73 sq M.predicted among non-blacks MDRD (S/P/Bld) [Vol rate/Area]49 mL/min/{1.73_m2}Low>=60[facility] HospitalFibrin D-dimer [Presence] in Platelet poor plasma by Latex agglutinationon 17-99-3551Aamkyk D- dimer LA Ql (PPP)1.33 mg/L FEUHigh<=0.59[facility] HospitalComment on above:RESULTS CALLED TO DR. Clark in D-Dimer concentration observed withthromboembolic events canbe variable due to localization,size, and age of the thrombus. Therefore, a thromboembolicevent cannot be diagnosed with certainty on the basis of thereference range. D-Dimers may also be elevated for a varietyof disorders including advanced age, , coronarydisease, cancer, liver disease, infection, inflammation,hematoma, DIC, trauma, post- surgery, diabetes, thrombolyticor anticoagulant therapy, stress, and generalizedhospitalization.Globulin Calc (S) [Mass/Vol]on 82-80-8809Plebikxe (S) [Mass/Vol]4.6 g/dLNorwalk Memorial HospitalHematocrit Auto (Bld) [Volume fraction]on 86-12-1409Undzsglatb (Bld) [Volume fraction]36.3 %Low 42.0-54.0[facility] HospitalHemoglobin [Mass/volume] in Bloodon 24-38-8862Yluncjrnze (Bld) [Mass/Vol]11.1 g/dLLow14.0-18.0[facility] HospitalINR in Platelet poor plasma by Coagulation assayon 97-87-8202LPJ Coag (PPP) [Relative time]1.09 {INR}[facility] HospitalComment on above:DESIRED INR:2.0-3.0 CONDITIONS NOT LISTED BELOW2.5-3.5 FOR PROSTHETIC HEART VALVE REPLACEMENT2.5-3.5 RECURRENT THROMBOSISLaboratory - Chemistry and Chemistry - challengeon 47-07-9997WFL6 (Bld) [Moles/Vol]19.4 mmol/LLow22.0-26.0 [facility] HospitalLactate [Moles/Vol]1.5 mmol/L0.4-2.0[facility] HospitalBilirubin Ql (U)NegativeNEGATIVENorwalk Memorial HospitalGlucose (U) [Mass/Vol]NegativeNEGATIVENorwalk Memorial HospitalKetones Ql (U)NegativeNEGATIVENorwalk Memorial HospitalpH (U)7.5 [pH]5.0-9.0[facility] Medical Centerpecific gravity (U) [Rel density] 1.0201.005-1.025[facility] HospitalUrobilinogen Qn (U)0.2 {Phillip'U}/dL0.2-1.0[facility] HospitalAlbumin [Mass/Vol]2.6 g/dL Low3.4-5.0[facility] HospitalALP [Catalytic activity/Vol]119 U/L Qedy77-967JzfgaupyyNorwalk Memorial HospitalALT [Catalytic activity/Vol]9 U/LLow 16-63[facility] HospitalAST [Catalytic activity/Vol]15 U/L15-37 [facility] HospitalBilirubin [Mass/Vol]0.8 mg/dL0.2-1.0[facility] HospitalCalcium [Mass/Vol]8.8 mg/dL8.5-10.1FPaulding County HospitalChloride [Moles/Vol]108 mmol/QUeqq43-667ZzztupeqmNorwalk Memorial HospitalCO2 [Moles/Vol]23.3 mmol/L21.0-32.0[facility] Creatinine [Mass/Vol]1.45 mg/dLHigh0.70-1.30[facility] GFR/1.73 sq M.predicted MDRD (S/P/Bld) [Vol rate/Area]59 mL/min/{1.73_m2}Low>=60 [facility] HospitalGlucose [Mass/Vol]131 mg/rJCqvg40-532WehnrotttNorwalk Memorial HospitalNatriuretic peptide B (Bld) [Mass/Vol]1488.0 pg/mLHigh <=900.0[facility] HospitalComment on above:RESULTS CALLED TO DR. Alvarengaassium [Moles/Vol]3.8 mmol/L3.5-5.1FPaulding County Hospital Protein [Mass/Vol]7.2 g/dL6.4-8.2FSt. Mary's Medical Center, Ironton Campusodium [Moles/Vol]145 mmol/T422-897AqgfvqvrjNorwalk Memorial HospitalUrea nitrogen [Mass/Vol]47.0 mg/dLHigh7.0-18.0[facility] HospitalUrea nitrogen/Creatinine [Mass ratio]32.4 mg/mgNorwalk Memorial Hospital Laboratory - Hematology and Cell countson 59-06-3266Lqhtndny granulocytes/100 WBC (Bld)1.0 %High0.0-0.5FPaulding County HospitalLaboratory - Microbiology and Antimicrobial susceptibilityon 04-23-2024S. agalactiae Org specific cx Ql (Vag fld)Not detectedNOT DETECTUniversity Hospitals St. John Medical Center SARS-CoV-2 (COVID-19) RNA KELLIE+probe Ql (Unsp spec)NegativeNEGATIVENorwalk Memorial HospitalComment on above:This test has not been FDA cleared or approved, but has beenauthorized [...] of the declaration thatcircumstances exist justifying the authoriz ation ofemergency use of in vitro diagnostic tests for detectionand/or diagnosis of Covid-19 under section 564(b)(1) of theAct, 21 U.S.C. 360bbb-3(b)(1), unless the declaration isterminated or authorization is revoked sooner.Laboratory - Microbiology and Antimicrobial susceptibilityOrdered By: Mercedez Resendez on 60-68-4253Evtwobym identified Cx Nom (U)[facility] - Specimen informationon 05-70-4201Jppxqbrecc (U)CLOUDYAbnormalCLEAR [facility] HospitalColor (U)YELLOWYELLOWNorwalk Memorial HospitalLaboratory - Urinalysison 90-16-6075Hbqwlkbky esterase Test strip Ql (U) MODERATEAbnormalNEGATIVENorwalk Memorial HospitalMucus Ql (Urine sed) TRACEAbnormalNONE SEENNorwalk Memorial HospitalNitrite Ql (U)Positive AbnormalNEGATIVENorwalk Memorial HospitalProtein Ql (U)100 mg/dLAbnormal NEG/TRACENorwalk Memorial HospitalLeukocytes [#/volume] corrected for nucleated erythrocytes in Blood by Automated counon 91-95-5636EGT corrected for nucl RBC Auto (Bld) [#/Vol]15.8 10 3/uLHigh4.0-11.0[facility] HospitalLymphocytes Auto (Bld) [#/Vol]on 54-53-3005Pxuimxyxkaw (Bld) [#/Vol]2.4 10 3/uL1.2-3.8[facility] HospitalLymphocytes/100 WBC Auto (Bld)on 60-40-7875Fbolhtqdomb/100 WBC (Bld)15.3 %Low20.5-60.0[facility] HospitalH Auto (RBC) [Entitic mass]on 87-56-0580MSY (RBC) [Entitic mass]28.4 pg 25.9-34.0[facility] HospitalMCHC Auto (RBC) [Mass/Vol]on 36-84-1167HZXP (RBC) [Mass/Vol]30.6 g/dL29.9-35.2FPaulding County HospitalMCV Auto (RBC) [Entitic vol]on 34-39-8324IAU (RBC) [Entitic vol]92.8 fL 80.0-94.0[facility] HospitalMonocytes Auto (Bld) [#/Vol]on 18-76-1121Fkdorpayf (Bld) [#/Vol]0.1 10 3/uLLow0.3-0.8[facility] HospitalMonocytes/100 WBC Auto (Bld)on 97-95-6977Zbukjwhdb/100 WBC (Bld)0.7 %Low 1.7-12.0[facility] HospitalNeutrophils Auto (Bld) [#/Vol]on 75-43-4630Gjcyctzjukf (Bld) [#/Vol]13.0 10 3/uLHigh1.4-6.5FPaulding County HospitalNeutrophils/100 WBC Auto (Bld)on 91-57-4439Hrgmlgctwbw/100 WBC (Bld)82.5 %High43.0-75.0[facility] HospitalNo Panel Informationon 62-51-5148Rpdef TestPositivePOSITIVENorwalk Memorial HospitalArterial Blood Base Excess-6.3 mmol/LLow<2.0-2.0[facility] HospitalArterial Blood Oxygen Saturation>100.0 %[facility] HospitalArterial Blood Partial Pressure CO235.7 mm[Hg]35.0-45.0[facility] Arterial Blood Partial Pressure O2307.0 mm[Hg]High80.0-100.0[facility] HospitalArterial Blood pH7.755Igj1.350-7.450[facility] HospitalBlood Gas Liter Nqev58MpqsqamjuNorwalk Memorial HospitalBlood Gas Sample SiteRRNorwalk Memorial HospitalOxygen Delivery DeviceNRBMNorwalk Memorial HospitalA.calcoaceticus-baumannii cmplx PCRNot detectedNOT [facility] HospitalBacteroides fragilis (PCR)Not detected NOT DETECTUniversity Hospitals St. John Medical CenterBlood Culture SourceBloodNorwalk Memorial HospitalCandida albicans (PCR)Not detectedNOT DETECTUniversity Hospitals St. John Medical CenterCandida auris (PCR)Not detectedNOT DETECTUniversity Hospitals St. John Medical CenterCandida glabrata (PCR)Not detectedNOT DETECTUniversity Hospitals St. John Medical CenterCandida krusei (PCR)Not detectedNOT DETECTUniversity Hospitals St. John Medical CenterCandida parapsilosis (PCR)Not detectedNOT DETECTE [facility] HospitalCandida tropicalis (PCR)Not detectedNOT DETECTE [facility] HospitalCrypto neoformans/gattii (PCR)(LAB)Not detected NOT DETECTEFirelands Regional Medical CenterCTX-M ESBL (PCR)Not detectedNOT DETECTUniversity Hospitals St. John Medical CenterEnterobacter cloacae complex (PCR) DetectedAbnormalNOT [facility] HospitalComment on above: RESULTS CALLED TO HARRY THAO RNEnterobacterales (PCR)DetectedAbnormalNOT [facility] HospitalComment on above:RESULTS CALLED TO HARRY THAO RNEnterococcus faecalis PCRNot detectedNOT DETECTUniversity Hospitals St. John Medical CenterEnterococcus faecium PCRNot detectedNOT [facility] HospitalEscherichia coli ResultNot detectedNOT DETECTUniversity Hospitals St. John Medical CenterHaemophilus influenzae DNANot detectedNOT DETECTCleveland Clinic Union HospitalIMP (blaIMP) Carbap Res Gene (PCR)Not detected NOT DETECTUniversity Hospitals St. John Medical CenterKlebsiella aerogenes (PCR)Not detectedNOT DETECTUniversity Hospitals St. John Medical CenterKlebsiella oxytoca (PCR)Not detectedNOT DETECTUniversity Hospitals St. John Medical CenterKlebsiella pneumoniae group (PCR)Not detectedNOT DETECTUniversity Hospitals St. John Medical CenterKPC (blaKPC) Detection (PCR)Not detectedNOT [facility] HospitalListeria monocytogenes (PCR)Not detectedNOT [facility] HospitalMCR-1 Resistance GeneNot detectedNOT [facility] HospitalmecA/C & MREJ Antimicrob Resist GenNOT APPLICABLENOT [facility] HospitalmecA/C-Methicillin Resistance GeneNOT APPLICABLENOT [facility] HospitalNDM (blaNDM) Detection (PCR)Not detectedNOT DETECTCleveland Clinic Union HospitalNeisseria meningitidis (PCR)Not detectedNOT DETECTUniversity Hospitals St. John Medical CenterProteus species (PCR)Not detectedNOT DETECTUniversity Hospitals St. John Medical CenterPseudomonas aeruginosa (PCR)Not detected NOT DETECTCentervillealmonella spp. (PCR)Not detectedNOT DETECTCentervilleerratia marcescens (PCR)Not detected NOT DETECTCentervilletaphylococcus aureus (PCR)(LAB)Not detectedNOT DETECTCentervilletaphylococcus epidermidis (PCR)Not detectedNOT DETECTCentervilletaphylococcus lugdunensis (TEM-PCRNot detectedNOT DETECTUniversity Hospitals St. John Medical Center Staphylococcus species (PCR)Not detectedNOT [facility] Hospitaltenotroph. maltophilia (PCR)Not detectedNOT [facility] Hospitaltreptococcus pneumoniae (PCR)Not detectedNOT [facility] Hospitaltreptococcus pyogenes (PCR)(LAB)Not detectedNOT DETECTE [facility] Centertreptococcus species (PCR)Not detectedNOT [facility] Hospitalyn OXA-48-like Carb Res Gene (PCR)Not detectedNOT [facility] HospitalVanA/B-Vancomycin Resistance GenesNOT APPLICABLENOT [facility] HospitalVIM (blaVIM) Carbap Res Gene (PCR)Not detectedNOT [facility] Urine BacteriaMODERATE #/HPFAbnormalNONE SEENNorwalk Memorial Hospital Urine Culture ReflexedSelect Medical Specialty Hospital - Columbus SouthUrine Microscopic ReviewSelect Medical Specialty Hospital - Columbus SouthUrine Occult BloodSMALLAbnormal NEGATIVENorwalk Memorial HospitalUrine Other CastsNONE SEEN #/LPFNONE [facility] HospitalUrine Other CrystalsNone Seen #/HPFNone [facility] Medical CenterUrine IMP84-88 #/HPFAbnormal0-[address] [place], [place] [address]Urine Squamous Epithelial CellsFEW #/LPFAbnormalNONE/RARE [facility] HospitalUrine WHQ75-17 #/HPFAbnormalNONE [facility] HospitalEosinophils # (Auto)0.1 10 3/uL0.0-0.7FPaulding County HospitalImmature Granulocyte # (Auto)0.16 10 3/uLHigh0.00-0.03[facility] HospitalTroponin I High Sensitivity8.3 pg/mL4.0-76.1FPaulding County HospitalComment on above:CUT-OFF POINTS HAVE BEEN ESTABLISHED BASED ON THE FOURTHUNIVERSAL DEFINITION OF MYOCARDIAL INFARCTION. THE UPPERREFERENCE LIMIT (URL) OF TROPONIN, DEFINED THE 99THPERCENTILE OF cTnI DISTRIBUTION IN A REFERENCE POPULATION,HAS BEEN CONFIRMED THE DECISION THRESHOLD FOR MIDIAGNOSIS.99TH PERCENTILE = 76.2 PG/MLNOTE: HIGH-SENSITIVITY TROPONIN ASSAY IS NOT INTENDED TO BEUSED IN ISOLATION BUT SHOULD BE INTERPRETED IN CONJUNCTIONWITH OTHER DIAGNOSTIC AND CLINICAL INFORMATION.No Panel InformationOrdered By: Mercedez Resendez on 38-88-0775Skmfa Culture 2FPaulding County HospitalBlood Culture 1FPaulding County HospitalPlatelet mean volume Auto (Bld) [Entitic vol]on 59-74-4185Kioeurab mean volume (Bld) [Entitic vol]12.5 fL9.5-13.5FPaulding County HospitalPlatelets Auto (Bld) [#/Vol]on 95-76-1864Ravhxdhvk (Bld) [#/Vol]318 10 3/aB747-092LakwnjujlNorwalk Memorial HospitalProthrombin time (PT)on 86-33-5619YN Coag (PPP) [Time] 11.5 s9.0-11.6FPaulding County HospitalRBC Auto (Bld) [#/Vol]on 12-34-7548QWX (Bld) [#/Vol]3.91 10 6/uLLow4.70-6.10[facility] Medical Centererum or plasma albumin/globulin mass ratioon 00-92-1487Hdpjzed/Globulin [Mass ratio]0.6 {ratio}[facility] Medical Centererum or plasma anion gap determinationon 52-35-5413Ddxzk gap [Moles/Vol]17.5 mmol/LFPaulding County HospitalCoding Summary.on 65-66-9119Whtfzo Summary. XBTSCmve38LYl5hCi+PGhlYWQ+UU6RSWKsC73adKMdgR7pA7VMXKuZLhnyUPCWICdFZaSmwqAnVC4xpU NjZXJu [file] bGxhcHNlOiBjb (more content not included)...[facility] Patient Letter FTon 51-94-2628Cmiwkif Letter [facility] [place] [address] [place], [place] [address] [place] [address] : 1960 Dear Alisia Correa, We have been trying to reach you with no success. It is important that you return our call regarding your recent lab result upon receiving this letter. Also, at the time of your call, please provide us with your current information. Thank you for your prompt attention to this matter. Sincerely, [facility] [address] [place] [address] OojuoqUxmrrnMcKitrick Hospital Urineon 16-59-2107Gogbpfsb identified Cx Nom (U)Microbiology PROCEDURE: Urine Culture [R1] SOURCE: U Random BODY SITE: COLLECTED DATE/TIME: 04/05/2024 15:30 EDT RECEIVED DATE/TIME: 04/05/2024 18:24 EDT START DATE/TIME: 04/05/2024 18:24 EDT FREE TEXT SOURCE: Orzech RPG DEVELOPER, HAT STEAMER-C, Orzech RPG DEVELOPER, HAT STEAMER-C, Pippa X Pippa X FINAL REPORTS Final Report [] Verified Date/Time: 04/07/2024 09:40 EDT >100,000 cfu/ml Klebsiella pneumoniae 50,000 cfu/ml Enterobacter cloacae 5,000 cfu/ml Mixed skin contaminants SUSCEPTIBILITY RESULTS LEGEND: S=Susceptible, N/R=Not Reported, Blank=Data [...] Locations R1: This test was performed at: [facility], [address] [place] [address], [facility] , , OuxfmdWnrociMercy Health Lorain HospitalComment on above:Performed By: #### [id number] #### [facility] [address] [place] [address]UCU - MISCon 53-23-8660MIJ - MISC [id number]#1.00TIFVeterans Health AdministrationRAD - Ultrasound Reporton 25-35-7380MWR - Ultrasound Report [id number]#1.00TIFVeterans Health AdministrationPatient Educationon 91-34-2614Tyetroz EducationCaregiving Antibiotic Medicine, Adult Antibiotic medicines are used [...] better. If you stop taking ittoo soon: ? You may start to feel [...] antibiotic. C. diff infection can start weeks afterstopping the antibiotic. Taking an antibiotic also puts [...] Follow these instructions at home: ? Take oxvh-mtb-wcwfutx and prescription medicines as told by your health care provider. ? Return to your normal activities as told by your health care provider. Ask your health care provider what activities are safe for you. ? Keep all follow-up visits as told by your health care provider. This is important. Contact a health care provider if: ? Your symptoms get worse. (more content not included)...NormalFisher Mercy Medical CenterUrology Office/Clinic Noteon 02-72-9162O[place] Office/Clinic NoteChief Complaint Cath change and f/u HPI Staff [...] of cefdinir. Discussed with the patient starting cqbu-zwk-ljistas UTI prevention supplements including d-mannose, Cranberry and [...] tube. He denies any blood in his urine,fevers, flank pain. Overall is draining without difficulty. [...] uric acid stones. He states that he isrequired 1 stone procedure in the past. He [...] Kidney Stones Antibiotic Medicine, Adult Kidney Stones, Rxoh-sk-Ypgo Benign Prostatic Hyperplasia Problem List/Past Medical History [...] Testicular hypofunction Urinary reten (more content not included)...[facility] Comment on above:Result Comment: Electronically Signed By: TITI Duncan APRN, Pippa Brand\.br\Date and Time Signed: 03/15/24 13:28 EDTProvider Letteron 68-87-6159Ebxzjorz Letter March 01, 2024 [address]ISIA CORREA [address] [place] [address] : 1960 Dear Alisia Correa, We have been trying to reach you with no success. It is important that you return our call regarding your lab results upon receiving this letter. Also, at the time of your call, please provide us with your current information. Thank you for your prompt attention to this matter. Sincerely, [facility] [address] [place] [address] EjztzwPbcmwoCleveland Clinic Akron General Lodi HospitalC Urineon 28-88-6359Ildgnqgm identified Cx Nom (U)Microbiology PROCEDURE: Urine Culture [R1] SOURCE: U Cath BODY SITE: COLLECTED DATE/TIME: 02/23/2024 14:39 EDT RECEIVED DATE/TIME: 02/23/2024 19:26 EDT START DATE/TIME: 02/23/2024 19:26 EDT FREE TEXT SOURCE: carlin IBARRA MD, Fidel IBARRA MD, Fidel Dawson FINAL REPORTS Final Report [] Verified Date/Time: 02/25/2024 10:44 EDT >100,000 cfu/ml Klebsiella pneumoniae >100,000 cfu/ml Citrobacter braakii SUSCEPTIBILITY RESULTS LEGEND: S=Susceptible, N/R=Not Reported, Blank=Data not available, or drug not advisable or tested, I=Intermediate, ESBL=Extended spectrum beta-lactamase, R=Resistant, TFG=Thymidine-dependent strain, BINH=Beta-lactamase positive, SABI=mcg/m;(mg/L), S*=Predicted susceptible interp, R*=Predicted resistant interp [facility] Citbra Antibiotic SABI Dilutn SABI Interp SABI [...] Locations R1: This test was performed at: [facility], [address] [place] [address], [id number] , [place], XwmlrrRnfeyiCleveland Clinic Akron General Lodi HospitalComment on above:Performed By: #### [id number] #### [facility] [address] [place] [address]Erfxkul Glucometer (BldC) [Mass/Vol]Ordered By: Bernice Shrestha on 61-96-3711Ottdnhy [Mass/Vol]70 mg/dLNorwalk Memorial HospitalComment on above:Random Glucose Reference Range is dependent on time and content of last meal. Glucose of more than 200 mg/dL in a nonstressed, ambulatory subject supports the diagnosis of Diabetes Mellitus.Pre-Certification Formon 02-05-2024 Pre-Certification [id number]#1.00TIFFNoMary Rutan HospitalAmbulatory Visit Summaryon 22-66-7365Bdnrrvepqp Visit Summary ALISIA CORREA Kenny :1960 Visit Date:01/11/2024 Ambulatory Visit Instructions Your Care Team Attending Physician - WALTER YBARRA, Fidel Dawson Primary Care Physician - ELLEN CRABTREE DO [...] using ultrasound (US) guidance (01/22/2023), Procedure on prostate(03/08/2019), TURP - Transurethral resection of prostate (03/08/2019), Injection of therapeutic substance into bladder wall (01/25/2019), Transurethral insertion of prostatic urethral lift implant (01/26/2018), Cystoscopy (12/01/2017), Urodynamics (10/28/2017), Colonoscopy, Gastric bypass, Knee replacement, Shoulder, Tonsillectomy. What to do next Scheduled Follow-Up Appointments Thursday 11:00 AM EDT Where[facility] HillBasophils Auto (Bld) [#/Vol]on 55-14-6274Uxrmparwc (Bld) [#/Vol]0.0 10 3/uL0.0-0.1FPaulding County HospitalBasophils/100 WBC Auto (Bld)on 21-63-0629Jpfqefwow/100 WBC (Bld)0.6 %0.2-2.0[facility] HospitalEosinophils/100 WBC Auto (Bld)on 64-05-2343Stwdxmmtdhq/100 WBC (Bld)3.2 % 0.9-7.0[facility] HospitalErythrocyte distribution width Auto (RBC) [Ratio]on 15-30-0280Hwwjiantoxs distribution width (RBC) [Ratio]14.6 % 11.0-15.0[facility] HospitalEstimated glomerular filtration rate (GFR) non- Americanon 50-61-6048JNA/1.73 sq M.predicted among non-blacks MDRD (S/P/Bld) [Vol rate/Area]mL/min/{1.73_m2}>=60Nor[facility] HospitalHematocrit Auto (Bld) [Volume fraction]on 92-59-3964Htvgrixcbz (Bld) [Volume fraction]40.9 %42.0-54.0[facility] HospitalHemoglobin [Mass/volume] in Bloodon 82-68-7451Usbijeigak (Bld) [Mass/Vol]12.6 g/dL14.0-18.0 [facility] HospitalLaboratory - Chemistry and Chemistry - challengeon 58-05-3799Dplvzfo [Mass/Vol]8.5 mg/dL8.5-10.1FPaulding County HospitalChloride [Moles/Vol]106 mmol/S89-126YawtacgnkNorwalk Memorial HospitalCO2 [Moles/Vol]24.7 mmol/L21.0-32.0[facility] Creatinine [Mass/Vol]1.14 mg/dL0.70-1.30[facility] GFR/1.73 sq M.predicted MDRD (S/P/Bld) [Vol rate/Area]mL/min/{1.73_m2}>=60 [facility] HospitalGlucose [Mass/Vol]70 mg/vJ73-709EqjhpiyjvNorwalk Memorial HospitalLactate [Moles/Vol]1.4 mmol/L0.4-2.0[facility] HospitalPotassium [Moles/Vol]3.6 mmol/L3.5-5.1FSt. Mary's Medical Center, Ironton Campusodium [Moles/Vol]140 mmol/P865-794NyhcvxdfjNorwalk Memorial HospitalUrea nitrogen [Mass/Vol]25.0 mg/dL7.0-18.0[facility] HospitalUrea nitrogen/Creatinine [Mass ratio]21.9 mg/mgNorwalk Memorial Hospital Laboratory - Hematology and Cell countson 51-43-3829Nsztgghf granulocytes/100 WBC (Bld)0.4 %0.0-0.5FPaulding County HospitalLaboratory - Microbiology and Antimicrobial susceptibilityOrdered By: Ellen Crabtree on 82-15-9938Vjvfmovz identified Cx Nom (U)[facility] HospitalLeukocytes [#/volume] corrected for nucleated erythrocytes in Blood by Automated counon 27-92-4815XDY corrected for nucl RBC Auto (Bld) [#/Vol]5.3 10 3/uL4.0-11.0[facility] HospitalLymphocytes Auto (Bld) [#/Vol]on 10-69-7050Szyzvofgvgs (Bld) [#/Vol]2.2 10 3/uL1.2-3.8[facility] HospitalLymphocytes/100 WBC Auto (Bld)on 51-76-9075Plhhchaptxg/100 WBC (Bld)41.9 %20.5-60.0[facility] HospitalH Auto (RBC) [Entitic mass]on 50-23-2463LBP (RBC) [Entitic mass]28.5 pg25.9-34.0[facility] HospitalMCHC Auto (RBC) [Mass/Vol]on 79-66-8871OPUR (RBC) [Mass/Vol]30.8 g/dL29.9-35.2FPaulding County HospitalMCV Auto (RBC) [Entitic vol]on 30-56-4372DBA (RBC) [Entitic vol] 92.5 fL80.0-94.0[facility] HospitalMonocytes Auto (Bld) [#/Vol]on 63-88-3130Htvuhwpty (Bld) [#/Vol]0.6 10 3/uL0.3-0.8[facility] HospitalMonocytes/100 WBC Auto (Bld)on 46-62-9919Hfygersel/100 WBC (Bld)12.0 % 1.7-12.0[facility] HospitalNeutrophils Auto (Bld) [#/Vol]on 68-49-3987Axnlzierilf (Bld) [#/Vol]2.2 10 3/uL1.4-6.5FPaulding County HospitalNeutrophils/100 WBC Auto (Bld)on 53-83-7832Cgmnecosowl/100 WBC (Bld)41.9 % 43.0-75.0[facility] HospitalNo Panel Informationon 01-06-2024 Eosinophils # (Auto)0.2 10 3/uL0.0-0.7FPaulding County HospitalImmature Granulocyte # (Auto)0.02 10 3/uL0.00-0.03[facility] Platelet mean volume Auto (Bld) [Entitic vol]on 69-73-4375Kgjttatc mean volume (Bld) [Entitic vol]13.0 fL9.5-13.5FPaulding County HospitalPlatelets Auto (Bld) [#/Vol]on 56-10-8627Ccgdxtbby (Bld) [#/Vol]153 10 3/yT288-456 [facility] HospitalRBC Auto (Bld) [#/Vol]on 06-18-1864ZIV (Bld) [#/Vol]4.42 10 6/uL4.70-6.10[facility] Medical Centererum or plasma anion gap determinationon 86-94-4830Hfsri gap [Moles/Vol]12.9 mmol/LFPaulding County HospitalPre-Certification Formon 55-43-7648Ngm-Certification Form [id number]#1.00TIFFNoCleveland Clinic Akron General Lodi HospitalAmbulatory Visit Summaryon 70-53-3282Lxbhcbifqg Visit Summary ALISIA CORREA :1960 Visit Date:11/17/2023 Ambulatory Visit Instructions Your Care Team Attending Physician - WALTER YBARRA, Fidel Dawson Primary Care Physician - ELLEN CRABTREE DO [...] using ultrasound (US) guidance (01/22/2023), Procedure on prostate(03/08/2019), TURP - Transurethral resection of prostate (03/08/2019), Injection of therapeutic substance into bladder wall (01/25/2019), Transurethral insertion of prostatic urethral lift implant (01/26/2018), Cystoscopy (12/01/2017), Urodynamics (10/28/2017), Colonoscopy, Gastric bypass, Knee replacement, Shoulder, Tonsillectomy. What to do next Scheduled Follow-Up Appointments Thursday 11:30 AM EST Where: [facility] HillPre-Certification Formon 12-72-6665Qcw-Certification Form [id number]#1.00TIFVeterans Health AdministrationA1C HEMOGLOBINon 59-90-9318NvB8n (Bld) [Mass fraction]5.7 %[employer] Other HbA1c (Bld) [Mass fraction]on 70-78-2346I2V HEMOGLOBIN [facility] [employer] Other c Urineon 37-75-7081Fjvrdxqg identified Cx Nom (U) Microbiology PROCEDURE: Urine Culture [R1] SOURCE: U Cath BODY SITE: COLLECTED DATE/TIME: 10/21/2023 12:49 EST RECEIVED DATE/TIME: 10/21/2023 18:45 EST START DATE/TIME: 10/21/2023 18:45 EST FREE TEXT SOURCE: WALTER YBARRA, Fidel IBARRA MD, Fidel Dawson FINAL REPORTS Final Report [] Verified Date/Time: [...] Locations R1: This test was performed at: [facility], [address] [place] [address], [address]- , , OfxtmhOxerkkMercy Health Lorain HospitalComment on above:Performed By: #### [id number] #### [facility] [address] [place] [address]Adnppmszjz Visit Summaryon 54-79-2164Eqhskmwqmx Visit Summary ALISIA CORREA :1960 Visit Date:10/21/2023 [...] using ultrasound (US) guidance (01/22/2023), Procedure on prostate(03/08/2019), TURP - Transurethral resection of prostate (03/08/2019), Injection of therapeutic substance into bladder wall (01/25/2019), Transurethral insertion of prostatic urethral lift implant (01/26/2018), Cystoscopy (12/01/2017), Urodynamics (10/28/2017), Colonoscopy, Gastric bypass, Knee replacement, Shoulder, Tonsillectomy. What to do next Scheduled Follow-Up Appointments Thursday 11:00 AM EST Where: [facility] HillAmbulatory Visit Summaryon 41-56-5317Lyiiytqpyq Visit Summary SUNNY ALISIA Cox :1960 Visit Date:09/15/2023 Ambulatory Visit Instructions Your Care Team Attending Physician - WALTER YBARRA, Fidel Dawson Primary Care Physician - ELLEN CRABTREE DO [...] using ultrasound (US) guidance (01/22/2023), Procedure on prostate(03/08/2019), TURP - Transurethral resection of prostate (03/08/2019), Injection of therapeutic substance into bladder wall (01/25/2019), Transurethral insertion of prostatic urethral lift implant (01/26/2018), Cystoscopy (12/01/2017), Urodynamics (10/28/2017), Colonoscopy, Gastric bypass, Knee replacement, Shoulder, Tonsillectomy. What to do next Scheduled Follow-Up Appointments Thursday 11:00 AM EST Where: [facility]vueMer[facility] Lorain HospitalLab Reportson 14-71-1572Naz Reports [id number]#1.00[facility] for RehabilitationFormson [id number]#1.00TIFWVUMedicine Harrison Community HospitalRAD - [place] Reporton 17-48-2687OFK - CT Report [id number]#1.00[facility] for RehabilitationRAD - MISCon 43-04-2108JNT - MISC [id number]#1.00[facility] for RehabilitationPhysician Orderon 37-63-2956Ptshrtcgk Order [id number]#1.00[facility] for RehabilitationPhysician Orderon 73-74-7822Vrzyigfzq Order [id number]#1.00[facility] for RehabilitationC Urineon 91-52-8382Uqwuejjw identified Cx Nom (U)Microbiology PROCEDURE: Urine Culture [R1] SOURCE: U Suprapubic BODY SITE: COLLECTED DATE/TIME: 07/17/2023 12:11 EDT RECEIVED DATE/TIME: 07/17/2023 19:37 EDT START DATE/TIME: 07/17/2023 19:37 EDT FREE TEXT SOURCE: GURMEET IBARRA MD, Fidel IBARRA MD, Fidel Dawson FINAL REPORTS Final Report [] Verified Date/Time: 07/21/2023 11:05 EDT 10,000 cfu/ml Pseudomonas aeruginosa 5,000 cfu/ml Methicillin-Resistant Staphylococcus aureus MRSA Called to Hanny White/[facility] 07/21/2023 11:05:09 by KD SUSCEPTIBILITY RESULTS LEGEND: S=Susceptible, N/R=Not Reported, Blank=Data [...] Locations R1: This test was performed at: [facility], [address] [place] [address], [address]- , , PkryanIrdyvkMercy Health Lorain HospitalComment on above:Performed By: #### [id number] #### [address] [address]Ujiamcia Letteron 49-55-2140Mgvjrrty Letter July 13, [address] [place], [place] [address] [place] [address] : 1960 Dear Mr. Correa, We have been trying to reach you with no success. It is important that you return our call regarding your recent injections upon receiving this letter. Also, at the time of your call, please provide us with your current information. Please call our office at [phone]. Thank you for your prompt attention to this matter. Sincerely, [facility] [address] [place], [place] [address]dg. [place], [place] [address]KykvxlMkqtbsMercy Health Lorain HospitalLab Reportson 59-24-1728Cnd [id number]#1.00CD:127Mer[facility] Health Lorain HospitalGent Levelon 68-27-2014VUWEXOHOXO5.8 microgram/mLNormal0.5-10.0 [facility] Brentwood HospitalComment on above:Performed By: #### [id number] ####[facility] [address] [place], [place] [address]Efs Reportson 14-97-2403Viv Reports [id number]#1.00CD:127Mer[facility]ain HospitalPhysician Orderon 26-78-3018Kpehbtija Order [id number]#1.00CD:127MackenzieCleveland Clinic Akron General Lodi HospitalPhysician [id number]#1.00CD:127Nathan Alegria Mercy Medical CenterPhysician Orderon 32-79-4939Rnytutcgf Order [id number]#1.00CD:127MackenzieCleveland Clinic Akron General Lodi HospitalC Urineon 91-90-2948Ndhvhpsu identified Cx Nom (U)Microbiology PROCEDURE: Urine Culture [R1] SOURCE: U Cath BODY SITE: COLLECTED DATE/TIME: 06/19/2023 12:08 EDT RECEIVED DATE/TIME: 06/19/2023 18:55 EDT START DATE/TIME: 06/19/2023 18:55 EDT FREE TEXT SOURCE: WALTER YBARRA, Fidel IBARRA MD, Fidel Dawson FINAL REPORTS Final Report [] Verified Date/Time: [...] Locations R1: This test was performed at: [facility], [address] [place] [address], [address]- , , KhpitnInsfrhMercy Health Lorain HospitalComment on above:Performed By: #### [id number] #### [facility] [address] [place] [address]Mqtflztjgl Visit Summaryon 91-95-9175Mhqjyqxmyf Visit Summary SUNNYALISIA :1960 Visit Date:06/19/2023 Ambulatory Visit Instructions Your Diagnosis Recurrent UTI Your Care Team Attending Physician - WALTER YBARRA, Fidel Dawson Primary Care Physician - ELLEN CRABTREE DO [...] using ultrasound (US) guidance (01/22/2023), Procedure on prostate(03/08/2019), TURP - Transurethral resection of prostate (03/08/2019), Injection of therapeutic substance into bladder wall (01/25/2019), Transurethral insertion of prostatic urethral lift implant (01/26/2018), Cystoscopy (12/01/2017), Urodynamics (10/28/2017), Colonoscopy, Gastric bypass, Knee replacement, Shoulder, Tonsillectomy. What to do next Scheduled Follow-Up Appointments Thursday 11:00 AM EDT Where: [facility] Reportson 69-30-9491Yet Reports [id number]:[address] [place] [address] [id number]#1.00CD:[address] [place] [address] Reports [id number]#1.00CD:[address] [place], [place] [address]Formson [id number]#1.00CD:[address] [place] [address] Urineon 78-59-8606Frargjgf identified Cx Nom (U)Microbiology PROCEDURE: Urine Culture [R1] SOURCE: U Suprapubic BODY SITE: COLLECTED DATE/TIME: 05/25/2023 11:26 EDT RECEIVED DATE/TIME: 05/25/2023 18:47 EDT START DATE/TIME: 05/25/2023 18:47 EDT FREE TEXT SOURCE: WALTER YBARRA, Fidel [place] MD FINAL REPORTS Final Report [] Verified [...] Locations R1: This test was performed at: [facility], [address] [place] [address], [address]- , [place], TtztfwNpcilcSuburban Community Hospital & Brentwood HospitalComment on above:Performed By: #### [id number] #### [facility] [address] [place] [address]ORAFVJF, URINARYon ,8 DihydroxyadeninePremier Health Miami Valley Hospital SouthComment on above:Performed By: #### CVDTBH #### [facility] [address] [place] [address] Dr. Bruce NicholasAmmonium Acid UrateNormalThe Metrohealth SystemComment on above: Performed By: #### CVDTBH #### [facility] [address] [place] [address] Dr. Bruce Talbertirubin Ql (U)Prem[facility] Hospital SouthComment on above: Performed By: #### CVDTBH #### [facility] [address] [place] [address] Dr. Bruce Ogden Oxalate Zcxcegncv60 %[facility] Hospital SouthComment on above:Performed By: #### CVDTBH #### [facility] [address] [place] [address] Dr. Bruce OgdenHPO4 (Brushite)[facility] Hospital SouthComment on above: Performed By: #### CVDTBH #### [facility] [address] [place] [address] Dr. Bruce Pintoium BilirubinateNormalThe Metrohealth SystemComment on above: Performed By: #### CVDTBH #### [facility] [address] [place] [address] Dr. Bruce Pintoium CarbonatePremier Health Miami Valley Hospital SouthComment on above: Performed By: #### CVDTBH #### [facility] [address] [place] [address] Dr. Bruce Pintoium Oxalate Euwalymvswf27 %NormalThe Metrohealth SystemComascension borgess hospital on above:Performed By: #### CVDTBH #### [facility] [address] [address] [address] Bruce Pintoium PalmitatePremier Health Miami Valley Hospital SouthComascension borgess hospital on above: Performed By: #### CVDTBH #### [facility] [address] [address] [address] Bruce NicholasCalcium PhosphateNoAdams County Regional Medical CenterComascension borgess hospital on above: Performed By: #### CVDTBH #### [facility] [address] [address] [address] Bruce Pintoium StearateNormalThe Metrohealth SystemComascension borgess hospital on above: Performed By: #### CVDTBH #### [facility] [address] [address] [address] Bruce NicholasCarbonate ApatitePremier Health Miami Valley Hospital SouthComascension borgess hospital on above: Performed By: #### CVDTBH #### [facility] [address] [address] [address] Bruce NicholasCellular MaterialPremier Health Miami Valley Hospital SouthComascension borgess hospital on above: Performed By: #### CVDTBH #### [facility] [address] [address] [address] Bruce NicholasCholesterolElyria Memorial Hospital on above:Performed By: #### CVDTBH #### [facility] [address] [address] [address] Bruce Nova (U)BrownPremier Health Miami Valley Hospital SouthComascension borgess hospital on above: Performed By: #### CVDTBH #### [facility] [address] [address] [address] Bruce NicholasThe [facility] on above:Performed By: #### CVDTBH #### [facility] [address] [address] [address] Bruce NicholasMadison Medical CenterjonahThe Jewish Hospital on above:Result Comment: Calculus received wet. Wet calculi must be dried before analysis, which delays reporting of results. Leaving calculi wet (such as water, saline, blood, urine) may lead to changes in composition.Performed By: #### CVDTBH #### [facility] [address] [place] [address] Dr. Bruce Smithment:CommentElyria Memorial Hospital on above:Result Comment: Physician questions regarding Calculi Analysis contact [facility] at: [phone].Performed By: #### CVDTBH #### [facility] [address] [place] [address] Dr. Bruce NicholasCompositionComPeoples Hospital on above: Result Comment: Percentage (Represents the % composition)Performed By: #### CVDTBH #### [facility] [address] [place] [address] Dr. Bruce NicholasCystineElyria Memorial Hospital on above:Performed By: #### CVDTBH #### [facility] [address] [place] [address] Dr. Bruce Littlejohnmer:CommentElyria Memorial Hospital on above: Result Comment: This test was developed and its performance characteristics determined by [facility]. It has not been cleared or approved by the Food and Drug Administration.Performed By: #### CVDTBH #### [facility] [address] [place] [address] Dr. Bruce Blackied BloodElyria Memorial Hospital on above:Performed By: #### CVDTBH #### [facility] [address] [place] [address] Dr. Bruce NicholasDrug or MetabolitePremier Health Miami Valley Hospital SouthComascension borgess hospital on above: Performed By: #### CVDTBH #### [facility] [address] [place] [address] Dr. Bruce NicholasHydroxyapatiteElyria Memorial Hospital on above: Performed By: #### CVDTBH #### [facility] [address] [place] [address] Dr. Bruce NicholasMg NH4 PO4 (Struvite)[facility] on above: Performed By: #### CVDTBH #### [facility] [address] [address] [address] Bruce Madden ([facility] on above: Performed By: #### CVDTBH #### [facility] [address] [address] [address] Bruce Marinelli component(s)[facility] Hospital SouthComment on above: Performed By: #### CVDTBH #### [facility] [address] [address] [address] Bruce Tariq.[facility] on above:Performed By: #### CVDTBH #### [facility] [address] [address] [address] Bruce JollyComjonahElyria Memorial Hospital on above:Result Comment: Photograph will follow under a separate coverPerformed By: #### CVDTBH #### [facility] [address] [address] [address] Bruce Crowley note:CommentElyria Memorial Hospital on above: Result Comment: Calculi report will follow via computer, mail or elementary school counselor delivery.Performed By: #### CVDTBH #### [facility] [address] [address] [address] Bruce ClevelandFmfvwNnfw9x8CxxewzPpzElyria Memorial Hospital on above:Result Comment: Multiple pieces received. Dimensions of the largest piece reported.Performed By: #### CVDTBH #### [facility] [address] [address] [address] Bruce Carrilloum Acid UrateNFlower Hospital on above: Performed By: #### CVDTBH #### [facility] [address] [address] [address] Bruce VelezurceCommentElyria Memorial Hospital on above:Result Comment: Urinary BladderPerformed By: #### CVDTBH #### [facility] [address] [address] [address] Bruce RmereWilson HealthComment on above:Performed By: #### CVDTBH #### [facility] [address] [address] [address] Bruce Inman AcidPremier Health Miami Valley Hospital SouthComascension borgess hospital on above:Performed By: #### CVDTBH #### [facility] [address] [address] [address] Bruce Inman Acid DihydrateNormalThe [facility] Union HospitalComment on above: Performed By: #### CVDTBH #### [facility] [address] [address] [address] Ash[address] Vincent Medical CenterComascension borgess hospital on above:Performed By: #### CVDTBH #### [facility] [address] [address] [address] Bruce PatrickhiWilson HealthComment on above:Performed By: #### CVDTBH #### [facility] [address] [place] [address] Dr. Bruce NicholasPOINT OF CARE GLUCOSEon 55-80-9601Clehkvk [Mass/Vol]70 mg/dL Critically unz36-279XvvElyria Memorial Hospital on above:Performed By: #### CBC #### [facility] [address] [place] [address] Dr. Bruce Perdomo AUTO DIFFon 46-65-2110HFQW #0.0 103/ulNormal0.0-0.1The [facility] on above:Performed By: #### CVDTBH #### [facility] [address] [place] [address] Dr. Bruce Arellanophils/100 WBC (Bld)0.2 %Normal0.2-2.0The [facility] on above:Performed By: #### CVDTBH #### [facility] [address] [place] [address] Dr. Bruce Johnson #0.1 103/ulNormal0.0-0.7The Lori HospitalComment on above: Performed By: #### CVDTBH #### [facility] [address] [place] [address] Dr. Bruce Coleyosinophils/100 WBC (Bld)0.7 %Critically low0.9-7.0The [facility] HospitalComment on above:Performed By: #### CVDTBH #### [facility] [address] [place] [address] Dr. Bruce Coleyrythrocyte distribution width (RBC) [Ratio]15.2 %Critically high 11.0-15.0The [facility] HospitalComment on above:Performed By: #### CVDTBH #### [facility] [address] [place] [address] Dr. Bruce NicholasHematocrit (Bld) [Volume fraction]43.0 %Lcighp65.0-54.0The [facility] HospitalComment on above:Performed By: #### CVDTBH #### [facility] [address] [place] [address] Dr. Bruce NicholasHemoglobin (Bld) [Mass/Vol]13.7 g/dLCritically low14.0-18.0The [facility] HospitalComment on above:Performed By: #### CVDTBH #### [facility] [address] [place] [address] Dr. Bruce Agrawal #0.04 10e3/ulCritically high0.00-0.03The [facility] Comment on above:Performed By: #### CVDTBH #### [facility] [address] [place] [address] Dr. Bruce Agrawal %0.5 %Normal0.0-0.5The [facility] HospitalComment on above: Performed By: #### CVDTBH #### [facility] [address] [place] [address] Dr. Bruce MachadoH #1.6 103/ulNormal1.2-3.8The [facility] HospitalComment on above:Performed By: #### CVDTBH #### [facility] [address] [place] [address] Dr. Bruce Trippmphocytes/100 WBC (Bld)18.4 %Critically low20.5-60.0The [facility] HospitalComment on above:Performed By: #### CVDTBH #### [facility] [address] [place] [address] Dr. Bruce Dial DIFF REQNONormalThe [facility] HospitalComment on above: Performed By: #### CVDTBH #### [facility] [address] [place] [address] Dr. Bruce Hickman (RBC) [Entitic mass]28.8 gfTcwgjw04.9-34.0The [facility] HospitalComment on above:Performed By: #### CVDTBH #### [facility] [address] [place] [address] Dr. Bruce Hickman (RBC) [Mass/Vol]31.9 g/cRZjsrog63.9-35.2The [facility] HospitalComment on above:Performed By: #### CVDTBH #### [facility] [address] [place] [address] Dr. Bruce Hickman (RBC) [Entitic vol]90.3 uYSvhzhq75.0-94.0The [facility] HospitalComment on above:Performed By: #### CVDTBH #### [facility] [address] [place] [address] Dr. Bruce Virk #0.6 103/ulNormal0.3-0.8The [facility] HospitalComment on above:Performed By: #### CVDTBH #### [facility] [address] [place] [address] Dr. Bruce Correaocytes/100 WBC (Bld)6.5 %Normal1.7-12.0The [facility] Comment on above:Performed By: #### CVDTBH #### [facility] [address] [place] [address] Dr. Bruce Rangel #6.4 103/ulNormal1.4-6.5The [facility] HospitalComment on above:Performed By: #### CVDTBH #### [facility] [address] [address] [address] Bruce NicholasNeutrophils/100 WBC (Bld)73.7 %Qnpprw09.0-75.0The [facility] HospitalComment on above:Performed By: #### CVDTBH #### [facility] [address] [address] [address] Bruce NicholasPlatelet mean volume (Bld) [Entitic vol]11.6 fLNormal9.5-13.5The [facility] HospitalComment on above:Performed By: #### CVDTBH #### [facility] [address] [place] [address] Dr. Bruce NicholasPLT229 103/vfJsfkgk580-384Kfl [facility] HospitalComment on above: Performed By: #### CVDTBH #### [facility] [address] [place] [address] Dr. Bruce NicholasRBC4.76 106/ulNormal4.70-6.10The [facility] HospitalComment on above:Performed By: #### CVDTBH #### [facility] [address] [place] [address] Dr. Bruce NicholasWBC8.7 103/ulNormal4.0-11.0The [facility] HospitalComment on above: Performed By: #### CVDTBH #### [facility] [address] [place] [address] Dr. Bruce NicholasPROF CHEM 8 (BAS METB)on 59-97-3651Jdfgz gap [Moles/Vol]11.1 mmol/LNormalThe [facility] HospitalComment on above:Performed By: #### CBC #### [facility] [address] [place] [address] Dr. Bruce NicholasCalcium [Mass/Vol]9.5 mg/dLNormal8.5-10.1The [facility] Comment on above:Performed By: #### CBC #### [facility] [address] [place] [address] Dr. Bruce NicholasChloride [Moles/Vol]105 mmol/WLygzvy91-920TkzThe [facility] Comment on above:Performed By: #### CBC #### [facility] [address] [address] [address] Bruce NicholasCO2 [Moles/Vol]27.5 mmol/GDboaak34.0-32.0[facility] Comment on above:Performed By: #### CBC #### [facility] [address] [address] [address] Bruce NicholasCreatinine [Mass/Vol]0.73 mg/dLNormal0.70-1.30The [facility] HospitalComment on above:Performed By: #### CBC #### [facility] [address] [address] [address] Bruce ColeyGFR-AF BRUNEIAN>60Normal>=60The [facility] HospitalComment on above:Performed By: #### CBC #### [facility] [address] [address] [address] Bruce ColeyGFR-NON AF BRUNEIAN>60Normal>=60The [facility] SystemComment on above:Performed By: #### CBC #### [facility] [address] [address] [address] Bruce NicholasGlucose [Mass/Vol]97 mg/bMSthfpg02-779LukThe [facility] Comment on above:Performed By: #### CBC #### [facility] [address] [address] [address] Bruce NicholasPotassium [Moles/Vol]4.1 mmol/LNormal3.5-5.1[facility] Comment on above:Performed By: #### CBC #### [facility] [address] [address] [address] Bruce NicholasSodium [Moles/Vol]140 mmol/WRkyllk071-782DgsThe [facility] Comment on above:Performed By: #### CBC #### [facility] [address] [address] [address] Bruce NicholasUrea nitrogen [Mass/Vol]22.0 mg/dLCritically high7.0-18.0The [facility] HospitalComment on above:Performed By: #### CBC #### [facility] [address] [address] [address] Bruce Broussard nitrogen/Creatinine [Mass ratio]30.1 mg/mgNormBrown Memorial HospitalComascension borgess hospital on above:Performed By: #### CBC #### [facility] [address] [address] [address] Bruce Monzon [id number] Visit (URFMOB) ALISIA CORREA ([id number]) 1960 M Date Time Provider Department 12/24/22 11:30 AM SAY REYES UROB During your visit today, we recorded the following information about you: Say Reyes APRN.[employer]ENT 12/24/2022 5:59 PM Signed The patient did [...] [E78.5] 12/07/2017 Ulcerative lesio (more content not included)...NormalFairview HospitalCULTURE URINEon [id number] URINEIsolate 1 Pseudomonas aeruginosa >100,000 cfu/mL of ORGANISM 1 Pseudomonas aeruginosa ANTIBIOTIC M.I.C RX STATUS Piperacillin/Tazobactam <=4 S F Ceftazidime <=1 S F Imipenem 1 S F Amikacin <=2 S F Gentamicin <=1 S F Tobramycin <=1 S F Ciprofloxacin <=0.25 S F Levofloxacin 0.25 S FNormalThe [facility] HospitalComment on above:Performed By: #### URCX #### [facility] [address] [place] [address] Dr. Bruce Perdomo AUTO DIFFon [id number] #0.0 103/ulNormal0.0-0.1The [facility] HospitalComment on above:Performed By: #### POCGLUC #### [facility] [address] [place] [address] Dr. Bruce Venturasophils/100 WBC (Bld)0.6 %Normal0.2-2.0The [facility] Comment on above:Performed By: #### POCGLUC #### [facility] [address] [place] [address] Dr. Barrera ChangEJohn #0.2 103/ulNormal0.0-0.7The [facility] HospitalComment on above: Performed By: #### POCGLUC #### [facility] [address] [place], [place] [address] Dr. Bruce Coleyosinophils/100 WBC (Bld)3.2 %Normal0.9-7.0The [facility] Comment on above:Performed By: #### POCGLUC #### [facility] [address] [place] [address] Dr. Bruce Coleyrythrocyte distribution width (RBC) [Ratio]16.6 %Critically high 11.0-15.0The [facility] HospitalComment on above:Performed By: #### POCGLUC #### [facility] [address] [place] [address] Dr. Bruce NicholasHematocrit (Bld) [Volume fraction]37.9 %Critically low42.0-54.0 The [facility] HospitalComment on above:Performed By: #### POCGLUC #### [facility] [address] [place] [address] Dr. Bruce NicholasHemoglobin (Bld) [Mass/Vol]12.0 g/dLCritically low14.0-18.0The [facility] HospitalComment on above:Performed By: #### POCGLUC #### [facility] [address] [place] [address] Dr. Bruce Agrawal #0.02 10e3/ulNormal0.00-0.03The [facility] HospitalComment on above:Performed By: #### POCGLUC #### [facility] [address] [place] [address] Dr. Bruce NicholasIG %0.3 %Normal0.0-0.5The [facility] HospitalComment on above: Performed By: #### POCGLUC #### [facility] [address] [place] [address] Dr. Bruce TrippMPH #1.2 103/ulNormal1.2-3.8The [facility] HospitalComment on above:Performed By: #### POCGLUC #### [facility] [address] [place] [address] Dr. Bruce Trippmphocytes/100 WBC (Bld)16.7 %Critically low20.5-60.0The [facility] HospitalComment on above:Performed By: #### POCGLUC #### [facility] [address] [address] [address] Bruce Dial DIFF REQNONormalThe [facility] HospitalComment on above: Performed By: #### POCGLUC #### [facility] [address] [place] [address] Dr. Bruce Hickman (RBC) [Entitic mass]28.4 jiDwiwnx84.9-34.0The [facility] HospitalComment on above:Performed By: #### POCGLUC #### [facility] [address] [place] [address] Dr. Bruce Hickman (RBC) [Mass/Vol]31.7 g/hGBjrzkc03.9-35.2The [facility] HospitalComment on above:Performed By: #### POCGLUC #### [facility] [address] [place] [address] Dr. Bruce Hickman (RBC) [Entitic vol]89.6 bXHjaelb30.0-94.0The [facility] HospitalComment on above:Performed By: #### POCGLUC #### [facility] [address] [place] [address] Dr. Bruce Virk #0.6 103/ulNormal0.3-0.8The [facility] HospitalComment on above:Performed By: #### POCGLUC #### [facility] [address] [place] [address] Dr. Bruce Correaocytes/100 WBC (Bld)7.9 %Normal1.7-12.0The [facility] Comment on above:Performed By: #### POCGLUC #### [facility] [address] [place] [address] Dr. Bruce Rangel #5.0 103/ulNormal1.4-6.5The [facility] HospitalComment on above:Performed By: #### POCGLUC #### [facility] [address] [place] [address] Dr. Bruce Francoisutrophils/100 WBC (Bld)71.3 %Rjpqyf65.0-75.0The [facility] HospitalComment on above:Performed By: #### POCGLUC #### [facility] [address] [address] [address] Bruce Garcialet mean volume (Bld) [Entitic vol]12.4 fLNormal9.5-13.5The [facility] HospitalComment on above:Performed By: #### POCGLUC #### [facility] [address] [place] [address] Dr. Bruce NicholasPLT156 103/cjCkclgt372-201Nmg [facility] HospitalComment on above: Performed By: #### POCGLUC #### [facility] [address] [place] [address] Dr. Bruce NicholasRBC4.23 106/ulCritically low4.70-6.10The [facility] HospitalComment on above:Performed By: #### POCGLUC #### [facility] [address] [place] [address] Dr. Bruce NicholasWBC6.9 103/ulNormal4.0-11.0The [facility] HospitalComment on above: Performed By: #### POCGLUC #### [facility] [address] [place] [address] Dr. Bruce NicholasCT ABD/PELVIS WO CONon [id number] ABD/PELVIS WO CONEXAMINATION: CT ABD/PELVIS WO CON, 12/18/2022 1:17 PM MST HISTORY: Retention of urine COMPARISON: None. TECHNIQUE: CT scan of the abdomen and pelvis was performed without IV contrast. CT dose reduction technique was used, including Automated Exposure Control. FINDINGS: Manager Gallery: No pertinent findings, which are not already [...] Electronically authenticated by: CHE PANDYA Date: 2022-12-18 17:14[facility] URINE PROFILEon 39-78-5762Apluktxlm Ql (U)NegativeNormal NEGATIVEThe [facility] HospitalComment on above:Performed By: #### POCGLUC #### [facility] [address] [place] [address] Dr. Bruce James (U)CLEARNormalCLEARThe [facility] SystemComasc[facility] borg[facility] hospital on above: Performed By: #### POCGLUC #### [facility] [address] [address] [address] Bruce Nova (U)BROWNAbnormalYELLOWElyria Memorial Hospital on above:Performed By: #### POCGLUC #### [facility] [address] [address] [address] Bruce Alvarez micrscopic examination will be performed if indicated. NormalThe [facility] HospitalComment on above:Performed By: #### POCGLUC #### [facility] [address] [address] [address] Bruce NicholasGlucose Ql (U)NegativeNormalNEGATIVEThe [facility] SystemComment on above:Performed By: #### POCGLUC #### [facility] [address] [address] [address] Bruce NicholasHemoglobin Ql (U)MODERATEAbnormalNEGATIVEThe [facility] Comment on above:Performed By: #### POCGLUC #### [facility] [address] [address] [address] Bruce NicholasKetones Ql (U)NegativeNormalNEGATIVEThe [facility] SystemComment on above:Performed By: #### POCGLUC #### [facility] [address] [place] [address] Dr. Bruce NicholasLEUKOCYTESLARGEAbnormalNEGATIVEThe [facility] SystemComment on above:Performed By: #### POCGLUC #### [facility] [address] [place] [address] Dr. Bruce NicholasNitrite Ql (U)PositiveAbnormalNEGUniversity Hospitals Health System Comment on above:Performed By: #### POCGLUC #### [facility] [address] [place] [address] Dr. Bruce NicholaspH (U)6.0 [pH]Normal5-9The [facility] SystemComment on above: Performed By: #### POCGLUC #### [facility] [address] [place] [address] Dr. Bruce NicholasProtein (U) [Mass/Vol]30 mg/dLAbnormalNEGATIVE/ TRACEThe [facility] HospitalComment on above:Performed By: #### POCGLUC #### [facility] [address] [place] [address] Dr. Bruce NicholasSPEC GRAVITY1.312Laswqj9.005-<=1.025The [facility] SystemComment on above:Performed By: #### POCGLUC #### [facility] [address] [address] [address] Bruce Mendes MICRO INDINDICATEDNormalThe [facility] HospitalComment on above: Performed By: #### POCGLUC #### [facility] [address] [place] [address] Dr. Bruce Valero Qn (U)1.0 {Phillip'U}/dLNormal0.2 - 1.0The [facility] HospitalComment on above:Performed By: #### POCGLUC #### [facility] [address] [place] [address] Dr. Bruce SaraviaF 14(COMP METB)on 93-74-5453Mzmovem [Mass/Vol]3.0 g/dL Critically low3.4-5.0The [facility] HospitalComment on above:Performed By: #### CVDTBH #### [facility] [address] [place] [address] Dr. Bruce NicholasAlbumin/Globulin [Mass ratio]0.9 {ratio}NormalThe [facility] HospitalComment on above:Performed By: #### CVDTBH #### [facility] [address] [place] [address] Dr. Bruce Gordon [Catalytic activity/Vol]112 U/BIatdlu64-964Lsi [facility] HospitalComascension [facility] hospital on above:Performed By: #### CVDTBH #### [facility] [address] [place] [address] Dr. Bruce Slaughter [Catalytic activity/Vol]7 U/LCritically zxd08-67Rts [facility] HospitalComasc[facility] on above:Performed By: #### CVDTBH #### [facility] [address] [place] [address] Dr. Bruce Lowry gap [Moles/Vol]5.6 mmol/LNormalThe [facility] HospitalComascension borg[facility] hospital on above:Performed By: #### CVDTBH #### [facility] [address] [place] [address] Dr. Bruce Salcido [Catalytic activity/Vol]19 U/OXgllkk47-10Tqa [facility] HospitalComment on above:Performed By: #### CVDTBH #### [facility] [address] [address] [address] Bruce NicholasBilirubin [Mass/Vol]0.6 mg/dLNormal0.2-1.0The [facility] Comment on above:Performed By: #### CVDTBH #### [facility] [address] [address] [address] Bruce NicholasCalcium [Mass/Vol]9.0 mg/dLNormal8.5-10.1The [facility] Comment on above:Performed By: #### CVDTBH #### [facility] [address] [address] [address] Bruce NicholasChloride [Moles/Vol]106 mmol/RPxvccm85-727Giv [facility] Comment on above:Performed By: #### CVDTBH #### [facility] [address] [place] [address] Dr. Bruce NicholasCO2 [Moles/Vol]29.0 mmol/KIiiubh92.0-32.0The [facility] Comment on above:Performed By: #### CVDTBH #### [facility] [address] [address] [address] Bruce NicholasCreatinine [Mass/Vol]0.71 mg/dLNormal0.70-1.30The [facility] HospitalComment on above:Performed By: #### CVDTBH #### [facility] [address] [address] [address] Bruce ColeyGFR-AF BRUNEIAN>60Normal>=60The [facility] HospitalComment on above:Performed By: #### CVDTBH #### [facility] [address] [place] [address] Dr. Bruce ColeyGFR-NON AF BRUNEIAN>60Normal>=60The [facility] HospitalComment on above:Performed By: #### CVDTBH #### [facility] [address] [address] [address] Bruce NicholasGlobulin (S) [Mass/Vol]3.2 g/dLNormalThe [facility] HospitalComment on above:Performed By: #### CVDTBH #### [facility] [address] [address] [address] Bruce NicholasGlucose [Mass/Vol]93 mg/nWTmxoem34-159JnkThe [facility] Comment on above:Performed By: #### CVDTBH #### [facility] [address] [address] [address] Bruce NicholasPotassium [Moles/Vol]3.6 mmol/LNormal3.5-5.1The [facility] Comment on above:Performed By: #### CVDTBH #### [facility] [address] [address] [address] Bruce NicholasProtein [Mass/Vol]6.2 g/dLCritically low6.4-8.2The [facility] HospitalComment on above:Performed By: #### CVDTBH #### [facility] [address] [address] [address] Bruce NicholasSodium [Moles/Vol]137 mmol/WSglrrq395-060Mfb [facility] Comment on above:Performed By: #### CVDTBH #### [facility] [address] [address] [address] Bruce NicholasUrea nitrogen [Mass/Vol]22.0 mg/dLCritically high7.0-18.0The [facility] HospitalComment on above:Performed By: #### CVDTBH #### [facility] [address] [address] [address] Bruce Broussard nitrogen/Creatinine [Mass ratio]31.0 mg/mgNoAdams County Regional Medical CenterComment on above:Performed By: #### CVDTBH #### [facility] [address] [address] [address] Bruce Welsh MICROSCOPIC ONLYon [id number]ddthsPBWB SEEN The [facility] HospitalComment on above:Performed By: #### POCGLUC #### [facility] [address] [address] [address] Bruce NicholasBactrivera identified Cx Nom (U)INDICATEDNoAdams County Regional Medical CenterComment on above:Performed By: #### POCGLUC #### [facility] [address] [address] [address] Bruce Mas SEENNormalNONE SEENElyria Memorial Hospital on above:Performed By: #### POCGLUC #### [facility] [address] [address] [address] Bruce NicholasCrystals LM Nom (Urine sed)NONE SEENNormalNONE SEENThe [facility] SystemComascension borg[facility] hospital on above:Performed By: #### POCGLUC #### [facility] [address] [address] [address] Barrera ChangEpithelial cells LM Ql (Urine sed)NONE SEENNormalNONE SEEN /RARE [facility] on above:Performed By: #### POCGLUC #### [facility] [address] [address] [address] Bruce GrewalUSMAIA SEENNormalNONE SEENElyria Memorial Hospital on above:Performed By: #### POCGLUC #### [facility] [address] [address] [address] Bruce NicholasDjggmRLW40-69Midrnkkm0-2AhpElyria Memorial Hospital on above: Performed By: #### POCGLUC #### [facility] [address] [address] [address] Bruce NicholasJmgcuFDI46-02GvhqcwfvDYPY SEENElyria Memorial Hospital on above: Performed By: #### POCGLUC #### [facility] [address] [address] [address] Bruce Gamez MANAGEMon 42-50-4309NJPZ MANAGEMNormalBlanchard Valley Health System Blanchard Valley HospitalCNDSon 84-71-7304OUMTUbpskpIaassttwt Clinic ClevelandCASE MANAGEMon 21-70-4316TTOA MANAGEMNormalBlanchard Valley Health System Blanchard Valley HospitalCONSULT PROGon 12-05-2022 CONSULT PROGNormalBlanchard Valley Health System Bl[facility]ard Valley HospitalNUTRITIONon 92-89-6163SZEHFJSRU NormalBlanchard Valley Health System [facility] Valley HospitalSOCIAL WORKon 37-26-8062VAIIXO WORKNormal [facility] HospitalCASE MANAGEMon 47-16-1924GQPS MANAGEMNormalBlanchard Valley Health System Bl[facility] Valley HospitalCONSULTon 74-34-5208ONXOXXBDnwqhgJqckkmjjv [facility] ALLIED HEALTHon 45-40-3277KQIJKF HEALTHNormalCregency hospital companyand Formerly [facility] Wake CountyCASE MANAGEMon 90-13-4757OUCT MANAGEMNormalBlanchard Valley Health System Bl[facility] Valley HospitalCBC panel Auto (Bld)on 91-50-6253Pjflqjxcedh distribution width (RBC) [Ratio]16.1 %High 11.5-15.0[facility] on above:Order Comment: Specimen Type: BLOOD SPECIMENOrdering Facility: [facility] Address:[address] [place], [place] [address]Performed By: #### 70859-4 ####[facility] [id number] [place] [address] [place] STATES OF AMERICAHematocrit (Bld) [Volume fraction]38.3 %Low 39.0-51.0[facility] on above:Order Comment: Specimen Type: BLOOD SPECIMENOrdering Facility: [facility] Address:[address] [place], [place] [address]Performed By: #### 84971-0 ####[facility] [id number] [place] [address] [place] AMERICAHemoglobin (Bld) [Mass/Vol]12.4 g/dLLow13.0-17.0 [facility] on above:Order Comment: Specimen Type: BLOOD SPECIMENOrdering Facility: [facility] Address:[address] [place], [place] [id number] By: #### 71504-9 ####[facility] [id number] [place] [address] [place] AMERICAMCH (RBC) [Entitic mass]28.1 pmTbkjvs80.0-34.0[facility] on above:Order Comment: Specimen Type: BLOOD SPECIMENOrdering Facility: [facility] Address:[address] [place], [place] [address]Performed By: #### 21274-5 ####[facility] [id number] [address] [place] MCHC (RBC) [Mass/Vol]32.4 g/zRBuwfzq52.5-36.0[facility] on above:Order Comment: Specimen Type: BLOOD SPECIMENOrdering Facility: [facility] Address:[address] [place] [address] Performed By: #### 75891-6 ####[facility] [id number] [place] [address] [place] MCV (RBC) [Entitic vol]86.7 pWJtwkjc11.0-100.0[facility] on above:Order Comment: Specimen Type: BLOOD SPECIMENOrdering Facility: [facility] Address:[address] [place] [address] Performed By: #### 09933-1 ####[facility] [id number] [place] [address] [place] Nucleated RBC (Bld) [#/Vol]10*3/uLNormal<0.01[facility] on above:Order Comment: Specimen Type: BLOOD SPECIMENOrdering Facility: [facility] Address:[address] [place] [id number] Performed By: #### 96914-4 ####[facility] [id number] [place] [address] [place] Platelet mean volume (Bld) [Entitic vol]13.0 fLHigh9.0-12.7CGlenbeigh Hospital on above:Order Comment: Specimen Type: BLOOD SPECIMENOrdering Facility: [facility] Address:[address] [place] [address]Performed By: #### 56600-0 ####[facility] [id number] [place] [address] [place] Platelets (Bld) [#/Vol]144 10*3/uKOtt163-788KgzxuwyrpSouthwest General Health Center on above:Order Comment: Specimen Type: BLOOD SPECIMENOrdering Facility: [facility] Address:[address] [place] [address]Result Comment: Results checked and verified.No clot detected.Performed By: #### 90541- 2 ####[facility] [id number] [place] [address] [place] AMERICARBC (Bld) [#/Vol]4.42 10*6/uL Normal4.20-6.00[facility] on above:Order Comment: Specimen Type: BLOOD SPECIMENOrdering Facility: [facility] Address:[address] [place] [address]Performed By: #### 31784-0 ####[facility] [id number] [address] STATES OF AMERICAWBC (Bld) [#/Vol]9.30 10*3/uL Normal3.70-11.00[facility] on above:Order Comment: Specimen Type: BLOOD SPECIMENOrdering Facility: [facility] Address:[address] [place] [address]Performed By: #### 66217-3 ####[facility] [id number] [address] STATES OF AMERICACONSULT PROGon 60-57-0803RKAACAK PROGNormalBlanchard Valley Health System Bl[facility] Valley HospitalECG COMPLETEon 89-11-2001UIC COMPLETENormal [facility] HospitalGas and Carbon monoxide panel (BldV)on 28-84-9785Rypo excess Calc (BldV) [Moles/Vol]1 mmol/LNormal0-2CGlenbeigh Hospital on above:Order Comment: Specimen Type: VENOUS BLOOD SPECIMENOrdering Facility: [facility] Address: [address] [place], [place] [id number] Performed By: #### 33548-1 ####[facility] [id number] [place] [address] [place] Body .52 [degF]NormalSouthwest General Health Center on above: Order Comment: Specimen Type: VENOUS BLOOD SPECIMENOrdering Facility: [facility] Address: [address] [place], [place] [address]Performed By: #### 70731-8 ####[facility] [id number] [place] [address] [place] AMERICACalcium.ionized (Bld) [Mass/Vol]1.17 mmol/LNormal1.08-1.30[facility] on above: Order Comment: Specimen Type: VENOUS BLOOD SPECIMENOrdering Facility: [facility] Address: [address] [place], [place] [address]Performed By: #### 97548-9 ####[facility] [id number] [place] [address] [place] AMERICACalcium.ionized adjusted to pH 7.4 (BldA) [Moles/Vol]1.19 mmol/LNormal1.08-1.30[facility] on above:Order Comment: Specimen Type: VENOUS BLOOD SPECIMENOrdering Facility: [facility] Address: [address] [place], [place] [address]Performed By: #### 69103-6 ####[facility] [id number] [place] [address] [place] AMERICACarboxyhemoglobin (BldV) [Mass fraction]0.6 %Normal0.0-2.0 [facility] on above:Order Comment: Specimen Type: VENOUS BLOOD SPECIMENOrdering Facility: [facility] Address: [address] [place], [place] [address]Result Comment: Carboxyhemoglobin Reference Range for Smokers: 2.0-8.0%Performed By: #### 31782-9 ####[facility] LABCLIA [id number] [place] [address] [place] AMERICACO2 (BldV) [Partial pressure]38 mm[Hg]Kwu95-35WckwhenhjSouthwest General Health Center on above:Order Comment: Specimen Type: VENOUS BLOOD SPECIMENOrdering Facility: [facility] Address: [address] [place], [place] [address]Performed By: #### 51737-8 ####[facility] [facility] [id number] [place] [address] [place] AMERICACO2 [Moles/Vol]26 mmol/GWnvdcn72-99TbkdhiosjBlanchard Valley Health System [facility] Comment on above:Order Comment: Specimen Type: VENOUS BLOOD SPECIMENOrdering Facility: [facility] Address: [address] [place], [place] [address]Performed By: #### 93401-5 ####[facility] LABCLIA [id number] [place] [address] [place] CO2 adjusted to patient's actual temperature (BldV) [Partial pressure]37 mmHgLow 42-55[facility] HospitalComascension [facility]org[facility] on above:Order Comment: Specimen Type: VENOUS BLOOD SPECIMENOrdering Facility: [facility] Address: [address] [place], [place] [address]Performed By: #### 10674-0 ####[facility] LABIA [id number] [place] [address] [place] AMERICAGlucose [Mass/Vol]110 mg/dLHigh 60-105[facility] HospitalComascension [facility]org[facility] on above:Order Comment: Specimen Type: VENOUS BLOOD SPECIMENOrdering Facility: [facility] Address: [address] [place], [place] [address]Performed By: #### 47198-4 ####[facility] LABCLIA [id number] [place] [address] [place] AMERICAHCO3 (Bld) [Moles/Vol]25 mmol/L Bljjeb17-25Fbsbdqujm Clinic ClevelandComment on above:Order Comment: Specimen Type: VENOUS BLOOD SPECIMENOrdering Facility: [facility] Ad dress: [address] [place], [place] [address]Performed By: #### 13851-6 ####[facility] LABCLIA [id number] [place] [address] [place] AMERICAHematocrit (Bld) [Volume fraction]36.2 %Low39.0-51.0[facility] on above:Order Comment: Specimen Type: VENOUS BLOOD SPECIMENOrdering Facility: [facility] Address: [address] [place], [place] [address]Performed By: #### 81367-3 ####[facility] LABIA [id number] [place] [address] [place] AMERICAHemoglobin (Bld) [Mass/Vol]11.8 g/dLLow13.0-17.0[facility] on above:Order Comment: Specimen Type: VENOUS BLOOD SPECIMENOrdering Facility: [facility] Address: [address] [place], [place] [address]Performed By: #### 16547-6 ####[facility] LABIA [id number] [place] [address] [place] AMERICALactate [Moles/Vol]1.2 mmol/LNormal0.5-2.2CGlenbeigh Hospital on above:Order Comment: Specimen Type: VENOUS BLOOD SPECIMENOrdering Facility: [facility] Address: [address] [place], [place] [address]Performed By: #### 29300-0 ####[facility] LABIA [id number] [place] [address] [place] AMERICAMethemoglobin (Bld) [Mass fraction]1.5 %Normal0.0-1.5CGlenbeigh Hospital on above: Order Comment: Specimen Type: VENOUS BLOOD SPECIMENOrdering Facility: [facility] Address: [address] [place] [phone] By: #### 94747-7 ####[facility] LABCLIA [id number] [place] [address] [place] AMERICAO2 THERAPYRA=Room Air NormalSouthwest General Health Center on above:Order Comment: Specimen Type: VENOUS BLOOD SPECIMENOrdering Facility: [facility] Address: [address] [place] [address]Performed By: #### 41350-2 ####[facility] LABCLIA [id number] [place] [address] [place] AMERICAOxygen (BldV) [Partial pressure] 56 mm[Hg]Dqvd55-46ZcxpsymqiSouthwest General Health Center on above:Order Comment: Specimen Type: VENOUS BLOOD SPECIMENOrdering Facility: [facility] Address: [address] [place] [address]Performed By: #### 74450-5 ####[facility] LABCLIA [id number] [address] STATES OF AMERICAOxygen adjusted to patient's actual temperature (BldV) [Partial pressure]54 buJhFqdn11-79MkjioybhpSouthwest General Health Center on above:Order Comment: Specimen Type: VENOUS BLOOD SPECIMENOrdering Facility: [facility] Address: [address] [place] [phone] By: #### 65762-4 ####[facility] LABCLIA [id number] [place] [address] [place] AMERICAOxygen saturation in Venous blood88 %Qdzp42-53TpjuiumlsSouthwest General Health Center on above:Order Comment: Specimen Type: VENOUS BLOOD SPECIMENOrdering Facility: [facility] Address: [address] [place] [address]Performed By: #### 42943-0 ####[facility] LABCLIA [id number] [place] [address] [place] AMERICAOxyhemoglobin (BldV) [Mass fraction]86 %Njsq19-10EcjbthdnxBlanchard Valley Health System [facility] HospitalComascension borg[facility] hospital on above:Order Comment: Specimen Type: VENOUS BLOOD SPECIMENOrdering Facility: [facility] Address: [address] [place], [place] [address]Performed By: #### 51999-1 ####[facility] LABIA [id number] [place] [address] [place] AMERICApH (BldV)7.43 [pH]High7.32-7.42[facility] Comment on above:Order Comment: Specimen Type: VENOUS BLOOD SPECIMENOrdering Facility: [facility] Address: [address] [place], [place] [address]Performed By: #### 04559-2 ####[facility] [id number] [place] [address] [place] pH adjusted to patient's actual temperature (BldV)7.45Mxdi2.32-7.42[facility] HospitalComascension borg[facility] hospital on above:Order Comment: Specimen Type: VENOUS BLOOD SPECIMENOrdering Facility: [facility] Address: [address] [place], [place] [address]Performed By: #### 18296-6 ####[facility] LABIA [id number] [place] [address] [place] AMERICAPotassium [Moles/Vol]3.7 mmol/LNormal3.5-5.0[facility] HospitalComascension borg[facility] hospital on above:Order Comment: Specimen Type: VENOUS BLOOD SPECIMENOrdering Facility: [facility] Address: [address] [place] [address]Performed By: #### 15559-1 ####[facility] LABIA [id number] [place] [address] [place] AMERICASodium [Moles/Vol]136 mmol/LEiayok497-365EkhgprsutSouthwest General Health Center on above:Order Comment: Specimen Type: VENOUS BLOOD SPECIMENOrdering Facility: [facility] Address: [address] [place], [place] [address]Performed By: #### 15989-0 ####[facility] LABCLIA [id number] [place] [address] [place] AMERICAMEDICAL EMERon 30-45-7879FIYLBKG EMERNormalCSelect Medical Specialty Hospital - Southeast OhioMagnesium SerPl-mCncon 73-78-3777Fruqwgkrm [Mass/Vol]2.0 mg/dLNormal 1.7-2.3CGlenbeigh Hospital on above:Order Comment: Specimen Type: BLOOD SPECIMENOrdering Facility: [facility] Address:Eric [place] JESSENIA[address]Performed By: #### 56796-7, ####[facility] LABCLIA [id number] [place] [address] [place] AMERICANURSING PROGon 29-75-6337NUGPEBK PROGNormal [facility] HospitalRenal function 2000 panelon 57-77-6882Vyegyve [Mass/Vol]3.0 g/dLLow3.9-4.9CGlenbeigh Hospital on above:Order Comment: Specimen Type: BLOOD SPECIMENOrdering Facility: [facility] Address:Eric ALLREDRosey [place]Performed By: #### 11217-2, ####[facility]CL[facility] [id number] [place] [address] [place] AMERICAAnion gap [Moles/Vol]9 mmol/LNormal9-18[facility] on above:Order Comment: Specimen Type: BLOOD SPECIMENOrdering Facility: [facility] Address:Eric ALLREDRosey [place]0001Performed By: #### 86152-4, ####[facility] LABCLIA [id number] [place] [address] [place] AMERICACalcium [Mass/Vol]8.9 mg/dLNormal8.5-10.2[facility] ClevelandComment on above:Order Comment: Specimen Type: BLOOD SPECIMENOrdering Facility: [facility] Address:[address] [place], [place] [address]Performed By: #### 85660-7, ####[facility] LABCLIA [id number] [place] [address] [place] AMERICAChloride [Moles/Vol]104 mmol/GQvjyjr05-705DvmuzgcrhSouthwest General Health Center on above:Order Comment: Specimen Type: BLOOD SPECIMENOrdering Facility: [facility] Address:[address] [place], [place] [address]Performed By: #### 97770-2, ####[facility]CLIA [id number] [place] [address] [place] AMERICACO2 [Moles/Vol]25 mmol/IDrighu18-06KpkmqzexlSouthwest General Health Center on above:Order Comment: Specimen Type: BLOOD SPECIMENOrdering Facility: [facility] Address:[address] [place], [place] [address]Performed By: #### 78439-5, ####[facility] LABCLIA [id number] [place] [address] [place] AMERICACreatinine [Mass/Vol] 0.62 mg/dLLow0.73-1.22[facility] on above:Order Comment: Specimen Type: BLOOD SPECIMENOrdering Facility: [facility] Address:[address] [place], [place] [address]Performed By: #### 55844-2, ####[facility] LABCLIA [id number] [place] [address] [place] AMERICAESTIMATED GLOMERULAR FILTRATION IFSH119 mL/min/1.73m???Normal>=60[facility] on above:Order Comment: Specimen Type: BLOOD SPECIMENOrdering Facility: [facility] Address:[address] [place] [address]Zmkdtm Comment: Estimated Glomerular Filtration Rate (eGFR) is calculated using the 2020 CKD-EPI creatinine equation. This equation utilizes serum creatinine, sex, and age as parameters. The creatinine assay has traceable calibration to isotope dilution-mass spectrometry. Refer to KDIGO guidelines for clinical interpretation. In patients with unstable renal function, e.g. those with acute kidney injury, the eGFR may not accurately reflect actual GFR.Performed By: #### 54815-3, ####[facility] LABIA [id number] [place] [address] [place] AMERICAGlucose [Mass/Vol]87 mg/pQJfmxhm88-28VhiblhhyjSouthwest General Health Center on above:Order Comment: Specimen Type: BLOOD SPECIMENOrdering Facility: [facility] Address:[address] [place], [place] [address]Result Comment: The [place] Diabetes Association (ADA) provides guidance for cutoff [...] symptoms of hyperglycemia or hyperglycemic crisis, random plasmaglucose results greater than or equal to 200 mg/dL meet the criteria for diagnosis of diabetes.Reference: Standards of Medical Care in Diabetes 2016, [place] [employer] Association. Diabetes Care. 2016.39(Suppl 1). Performed By: #### 43941-2, ####[facility] LABIA [id number] [place] [address] [place] Phosphate [Mass/Vol]2.4 mg/dLLow2.7-4.8CGlenbeigh Hospital on above:Order Comment: Specimen Type: BLOOD SPECIMENOrdering Facility: [facility] Address:[address] [place] [id number] By: #### 93055-2, ####[facility] LABCLIA [id number] [place] [address] [place] AMERICAPotassium [Moles/Vol]3.8 mmol/LNormal3.7-5.1CGlenbeigh Hospital on above: Order Comment: Specimen Type: BLOOD SPECIMENOrdering Facility: [facility] Address:[address] [place], [place] [address]Performed By: #### 25193-8, ####[facility] LABIA [id number] [place] [address] [place] AMERICASodium [Moles/Vol]138 mmol/XVylfye727-347BrywfogdySouthwest General Health Center on above:Order Comment: Specimen Type: BLOOD SPECIMENOrdering Facility: [facility] Address:[address] [place], [place] [address]Performed By: #### 95172-2, ####[facility] LABIA [id number] [facility] [place] [address] [place] AMERICAUrea nitrogen [Mass/Vol]24 mg/dLNormal9-24[facility] on above:Order Comment: Specimen Type: BLOOD SPECIMENOrdering Facility: [facility] Address:[address] [place], [place] [address]Performed By: #### 89407-7, ####[facility] LABIA [id number] [place] [address] [place] AMERICATHERAPY NTon 94-95-5427YLOMRIP NTNormalCSelect Medical Specialty Hospital - Southeast OhioBasaint joseph london metabolic 2000 panelon 87-31-0930Lpqbp gap [Moles/Vol]7 mmol/LLow9-18[facility] on above:Order Comment: Specimen Type: BLOOD SPECIMENOrdering Facility: [facility] Address:[address] [place] [address] Performed By: #### 94064-4, 2777-1, 33332-7 ####[facility] LABCLIA [id number] [address] [place] AMERICACalcium [Mass/Vol]8.5 mg/dLNormal8.5-10.2CSelect Medical Specialty Hospital - [facility] [place] Comment on above:Order Comment: Specimen Type: BLOOD SPECIMENOrdering Facility: [facility] Address:[address] [place] [address] Performed By: #### 64973-0, 277-, 78516-0 ####[facility] LABCLIA [id number] [address] [place] AMERICAChloride [Moles/Vol]106 mmol/HCwoz21-713TwlerouvuBlanchard Valley Health System [facility] Valley HospitalComment on above:Order Comment: Specimen Type: BLOOD SPECIMENOrdering Facility: [facility] Address:[address] [place] [address] Performed By: #### 18222-0, 27704-18, 99361-4 ####[facility] LABCLIA [id number] [address] [place] AMERICACO2 [Moles/Vol]27 mmol/TWpqiqy28-37PfvbcezzdBlanchard Valley Health System [facility] HospitalComment on above:Order Comment: Specimen Type: BLOOD SPECIMENOrdering Facility: [facility] Address:[address] [place], [place] [address]Performed By: #### 43284-7, 27704-18, ####[facility] LABCLIA [id number] [address] [place] Creatinine [Mass/Vol]0.69 mg/dLLow0.73-1.22[facility] on above:Order Comment: Specimen Type: BLOOD SPECIMENOrdering Facility: [facility] Address:[address] [place], [place] [address]Performed By: #### 99174-2, 27704-18, 53453-1 ####[facility] LABCLIA [id number] [address] [facility] ESTIMATED GLOMERULAR FILTRATION WRYK323 mL/min/1.73m???Normal>=60[facility] on above:Order Comment: Specimen Type: BLOOD SPECIMENOrdering Facility: [facility] Address:[address] [place], [place] [id number] Comment: Estimated Glomerular Filtration Rate (eGFR) is calculated using the 2020 CKD-EPI creatinine equation. This equation utilizes serum creatinine, sex, and age as parameters. The creatinine assay has traceable calibration to isotope dilution-mass spectrometry. Refer to KDIGO guidelines for clinical interpretation. In patients with unstable renal function, e.g. those with acute kidney injury, the eGFR may not accurately reflect actual GFR.Performed By: #### 00688-0, 2777-1, 39213-2 ####[facility] LABCLIA [id number] [address] [place] AMERICAGlucose [Mass/Vol]78 mg/oOSqxnit99-12HobkviheoSouthwest General Health Center on above:Order Comment: Specimen Type: BLOOD SPECIMENOrdering Facility: [facility] Address:[address] [place], [place] [phone] Comment: The [place] Diabetes Association (ADA) provides guidance for cutoff [...] unequivocal hyperglycemia, results should be confirmed by repeattesting. In a patient with classic symptoms of hyperglycemia or hyperglycemic crisis, random plasmaglucose results greater than or equal to 200 mg/dL meet the criteria for diagnosis of diabetes.Reference: Standards of Medical Care in Diabetes 2016, [place] Diabetes Association. Diabetes Care. 2016.39(Suppl 1).Performed By: #### 53619- 9, 2777-1, 89305-9 ####[facility] LABCLIA [id number] [address] [place] AMERICAPotassium [Moles/Vol] 3.6 mmol/LLow3.7-5.1CGlenbeigh Hospital on above:Order Comment: Specimen Type: BLOOD SPECIMENOrdering Facility: [facility] Address:[address] [place], [place] [address]Performed By: #### 89845-6, 2777-1, 08853-6 ####[facility] LABCLIA [id number] [address] [place] AMERICASodium [Moles/Vol]140 mmol/AIwirzq870-894DvzkdstbmSouthwest General Health Center on above:Order Comment: Specimen Type: BLOOD SPECIMENOrdering Facility: [facility] Address:[address] [place], [place] [address]Performed By: #### 97112-5, 2777-1, 84731-2 ####[facility] LABCLIA [id number] STATES OF WHITE HOSPITALUrea nitrogen [Mass/Vol]26 mg/dLHigh9-24[facility] on above:Order Comment: Specimen Type: BLOOD SPECIMENOrdering Facility: [facility] Address:[address] [place], [place] [address]Performed By: #### 24507-6, 2777-1, 57131-5 ####[facility] LABIA [id number] [place] [address] [place] AMERICACASE MANAGEMon 65-80-5949ZKTW MANAGEMNormalBlanchard Valley Health System [facility] HospitalCB panel Auto (Bld)on 61-41-8595Fusuqkggehv distribution width (RBC) [Ratio]16.2 %High11.5-15.0 [facility] on above:Order Comment: Specimen Type: BLOOD SPECIMENOrdering Facility: [facility] Address:[address] [place], [place] [address]Performed By: #### 66353-6 ####[facility] LABIA [id number] [address] AMERICAHematocrit (Bld) [Volume fraction]39.0 %Enfaqp91.0-51.0 [facility] on above:Order Comment: Specimen Type: BLOOD SPECIMENOrdering Facility: [facility] Address:[address] [place] [address]Performed By: #### 33906-7 ####[facility] LABCLIA [id number] [address] STATES OF WHITE HOSPITALHemoglobin (Bld) [Mass/Vol]12.6 g/dLLow13.0-17.0[facility] on above:Order Comment: Specimen Type: BLOOD SPECIMENOrdering Facility: [facility] Address:[address] [place], [place] [address]Performed By: #### 48428-8 ####[facility] LABCLIA [id number] [place] [address] [place] AMERICAMCH (RBC) [Entitic mass]27.8 ycYcnmdo55.0-34.0[facility] on above:Order Comment: Specimen Type: BLOOD SPECIMENOrdering Facility: [facility] Address:[address] [place] [address]Performed By: #### 45416-6 ####[facility] LABIA [id number] [place] [address] [place] MCHC (RBC) [Mass/Vol]32.3 g/lUFdcyvo35.5-36.0[facility] on above:Order Comment: Specimen Type: BLOOD SPECIMENOrdering Facility: [facility] Address:[address] [place] [address] Performed By: #### 33676-7 ####[facility] LABCLIA [id number] [place] [address] [place] MCV (RBC) [Entitic vol]85.9 tFFzjtad68.0-100.0[facility] on above:Order Comment: Specimen Type: BLOOD SPECIMENOrdering Facility: [facility] Address:[address] [place], [place] [address] Performed By: #### 28413-2 ####[facility] LABIA [id number] [place] [address] [place] Nucleated RBC (Bld) [#/Vol]10*3/uLNormal<0.01[facility] on above:Order Comment: Specimen Type: BLOOD SPECIMENOrdering Facility: [facility] Address:[address] [place], [place] [address] Performed By: #### 75254-2 ####[facility] [id number] [place] [address] [place] Platelet mean volume (Bld) [Entitic vol]12.8 fLHigh9.0-12.7CGlenbeigh Hospital on above:Order Comment: Specimen Type: BLOOD SPECIMENOrdering Facility: [facility] Address:[address] [place], [place] [address]Performed By: #### 09087-7 ####[facility] [id number] [place] [address] [place] Platelets (Bld) [#/Vol]129 10*3/tROsk812-654PsoxwneakSouthwest General Health Center on above:Order Comment: Specimen Type: BLOOD SPECIMENOrdering Facility: [facility] Address:[address] [place] [address]Result Comment: No clot detected.Results checked and verified.Performed By: #### 36402- 2 ####[facility] LABIA [id number] [place] [address] [place] AMERICARBC (Bld) [#/Vol]4.54 10*6/uL Normal4.20-6.00[facility] on above:Order Comment: Specimen Type: BLOOD SPECIMENOrdering Facility: [facility] Address:[address] [place], [place] [address]Performed By: #### 22030-6 ####[facility] LABCLIA [id number] [place] [address] [place] WHITE HOSPITALWBC (Bld) [#/Vol]9.16 10*3/uL Normal3.70-11.00[facility] HospitalComment on above:Order Comment: Specimen Type: BLOOD SPECIMENOrdering Facility: [facility] Address:[address] [place], [place] [address]Performed By: #### 60128-1 ####[facility] LABIA [id number] [address] OF WHITE HOSPITALCONSULT PROGon 93-54-0715RORFPFX PROGNormalBlanchard Valley Health System [facility] Valley HospitalECG COMPLETEon 88-47-0553HRM COMPLETENormal [facility] HospitalMagnesium SerPl-mCncon 25-93-6988Nrmbdpccq [Mass/Vol] 1.8 mg/dLNormal1.7-2.3CSelect Medical Specialty Hospital - Southeast OhioComment on above:Order Comment: Specimen Type: BLOOD SPECIMENOrdering Facility: [facility] Address:[address] [place], [place] [address]Performed By: #### 35241-9, 2777-1, 89453-1 ####[facility] LABCLIA [id number] [address] [place] AMERICAPhosphate SerPl-mCncon 47-70-2878Heoouqgmw [Mass/Vol]2.7 mg/dLNormal2.7-4.8CSelect Medical Specialty Hospital [facility] [place] Comment on above:Order Comment: Specimen Type: BLOOD SPECIMENOrdering Facility: [facility] Address:[address] [place] [address] Performed By: #### 37591-4, 2777-1, 42797-4 ####[facility] LABCLIA [id number] [address] [place] AMERICATHERAPY NTon 59-61-9613MCNXSFA NTNormalCSelect Medical Specialty Hospital - Southeast OhioBasic metabolic 2000 panelon 73-87-3128Djimy gap [Moles/Vol]10 mmol/LNormal9-18 [facility] HospitalComment on above:Order Comment: Specimen Type: BLOOD SPECIMENOrdering Facility: [facility] Address:[address] [place], [place] [address]Performed By: #### 21611-3 ####[facility] LABCLIA [id number] [place] [address] [place] AMERICAAnion gap [Moles/Vol]7 mmol/LLow9-18[facility] Comment on above:Order Comment: Specimen Type: BLOOD SPECIMENOrdering Facility: [facility] Address:[address] [place] [address] Performed By: #### 47580-3, 2777-, ####[facility] LABCLIA [id number] [address] [place] AMERICACalcium [Mass/Vol]8.8 mg/dLNormal8.5-10.2CSelect Medical Specialty Hospital [facility] [place] Comment on above:Order Comment: Specimen Type: BLOOD SPECIMENOrdering Facility: [facility] Address:[address] [place] [address] Performed By: #### 34271-8 ####[facility] LABCLIA [id number] [place] [address] [place] Calcium [Mass/Vol]8.9 mg/dLNormal8.5-10.2CSelect Medical Specialty Hospital - Southeast OhioComment on above:Order Comment: Specimen Type: BLOOD SPECIMENOrdering Facility: [facility] Address:[address] [place] [address]Performed By: #### 87507-6, 2777-1, ####[facility] LABCLIA [id number] AVENUEDES[address], [place] [address] [place] Chloride [Moles/Vol]103 mmol/BNeluxj49-805IvjjveijjSouthwest General Health Center on above:Order Comment: Specimen Type: BLOOD SPECIMENOrdering Facility: [facility] Address:[address] [place] [address]Performed By: #### 91514-0 ####[facility] LABCLIA [id number] [place] [address] [place] AMERICAChloride [Moles/Vol] 104 mmol/AQabzkx71-146IvoolesbgSouthwest General Health Center on above:Order Comment: Specimen Type: BLOOD SPECIMENOrdering Facility: [facility] Address:[address] [place] [address]Performed By: #### 94182-1, 2776-10, ####[facility] LABCLIA [id number] [address] [place] AMERICACO2 [Moles/Vol]25 mmol/QCrzoyf68-74NzcypgetkSouthwest General Health Center on above:Order Comment: Specimen Type: BLOOD SPECIMENOrdering Facility: [facility] Address:[address] [place], [place] [address]Performed By: #### 72772-6 ####[facility] LABCLIA [id number] [place] [address] [place] OF AMERICAPerformed By: #### 57224-2, , ####[facility] LABCLIA [id number] [place] [id number] [place] AMERICACreatinine [Mass/Vol] 0.93 mg/dLNormal0.73-1.22[facility] on above:Order Comment: Specimen Type: BLOOD SPECIMENOrdering Facility: [facility] Address:[address] [place], [place] [address]Performed By: #### 58413-1 ####[facility] LABCLIA [id number] [place] [address]Performed By: #### 07046-2, 2777-1, ####[facility] LABIA [id number] [address] STATES OF WHITE HOSPITALESTIMATED GLOMERULAR FILTRATION RATE92 mL/min/1.73m???Normal>=60[facility] Comment on above:Order Comment: Specimen Type: BLOOD SPECIMENOrdering Facility: [facility] Address:[address] [place], [place] [address] Result Comment: Estimated Glomerular Filtration Rate (eGFR) is calculated using the 2020 CKD-EPI creatinine equation. This equation utilizes serum creatinine, sex, and age as parameters. The creatinine assay has traceable calibration to isotope dilution-mass spectrometry. Refer to KDIGO guidelines for clinical interpretation. In patients with unstable renal function, e.g. those with acute kidney injury, the eGFR may not accurately reflect actual GFR.Performed By: #### 67430-1 ####[facility] LABCLIA [id number] [address]Performed By: #### 02523-7, 2777-1, ####[facility] LABIA [id number] [place] [address] [place] AMERICAGlucose [Mass/Vol]81 mg/hZDatymx96-37DxhrhhgzqBlanchard Valley Health System [facility] Valley HospitalComment on above:Order Comment: Specimen Type: BLOOD SPECIMENOrdering Facility: [facility] Address:[address] [place] [address]Hsomvs Comment: The [place] Diabetes Association (ADA) provides guidance for cutoff values for fast ing glucose and random glucose. The ADA defines fasting as no caloric intake for at least 8 hours. Fasting plasma glucose results between 100 to 125 mg/dL indicate increased risk for diabetes (prediabetes).Fasting plasma glucose results greater than or equal to 126 mg/dL meet the criteria for diagnosis of diabetes. In the absence of unequivocal hyperglycemia, results should be confirmed by repeattesting. In a patient with classic symptoms of hyperglycemia or hyperglycemic crisis, random plasmaglucose results greater than or equal to 200 mg/dL meet the criteria for diagnosis of diabetes.Reference: Standards of Medical Care in Diabetes 2016, [place] Diabetes Association. Diabetes Care. 2016.39(Suppl 1).Performed By: #### 36821-9 ####[facility] LABCLIA [id number] [place] [address] [place] AMERICAPerformed By: #### 68942-8, 2777-, ####[facility] LABCLIA [id number] [place]IL[place] [address] [place] AMERICAPotassium [Moles/Vol]4.2 mmol/LNormal3.7-5.1CGlenbeigh Hospital on above:Order Comment: Specimen Type: BLOOD SPECIMENOrdering Facility: [facility] Address:[address] [place], [place] [address]Performed By: #### 07737-4 ####[facility] LABIA [id number] [place] [address] [place] Potassium [Moles/Vol]4.3 mmol/LNormal3.7-5.1CGlenbeigh Hospital on above:Order Comment: Specimen Type: BLOOD SPECIMENOrdering Facility: [facility] Address:[address] [place], [place] [address]Performed By: #### 92941-4, 27704-18, ####[facility] LABIA [id number] [address] [place] Sodium [Moles/Vol]138 mmol/SUylkkv891-996NmszfssjuSouthwest General Health Center on above:Order Comment: Specimen Type: BLOOD SPECIMENOrdering Facility: [facility] Address:[address] [place] [address]Performed By: #### 32278-9 ####[facility] LABIA [id number] [place] [id number] [place] AMERICASodium [Moles/Vol]136 mmol/BQtcjbu322-659DdiudermgSouthwest General Health Center on above:Order Comment: Specimen Type: BLOOD SPECIMENOrdering Facility: [facility] Address:[address] [place], [place] [address]Performed By: #### 42264-8, 2776-10, ####[facility] LABCLIA [id number] [address] [place] AMERICAUrea nitrogen [Mass/Vol]34 mg/dLCharleston Area Medical Center9-24[facility] on above:Order Comment: Specimen Type: BLOOD SPECIMENOrdering Facility: [facility] Address:[address] [place], [place] [address]Performed By: #### 32484-8 ####[facility] LABIA [id number] [address] STATES OF AMERICAUrea nitrogen [Mass/Vol]35 mg/dLCharleston Area Medical Center9-[facility] on above:Order Comment: Specimen Type: BLOOD SPECIMENOrdering Facility: [facility] Address:[address] [place], [place] [address]Performed By: #### 72550-8, 2776-10, ####[facility] LABIA [id number] [place] [address] [place] AMERICACBC panel Auto (Bld)on 54-44-4926Bwijcxlbvgx distribution width (RBC) [Ratio]16.6 %High 11.5-15.0[facility] on above:Order Comment: Specimen Type: BLOOD SPECIMENOrdering Facility: [facility] Address:[address] [place], [place] [address]Performed By: #### 23957-7 ####[facility] LABIA [id number] [place] [address] [place] AMERICAHematocrit (Bld) [Volume fraction]38.1 %Low 39.0-51.0[facility] on above:Order Comment: Specimen Type: BLOOD SPECIMENOrdering Facility: [facility] Address:[address] [place], [place] [address]Performed By: #### 78169-0 ####[facility] [id number] [address] STATES OF WHITE HOSPITALHemoglobin (Bld) [Mass/Vol]12.5 g/dLLow13.0-17.0 [facility] on above:Order Comment: Specimen Type: BLOOD SPECIMENOrdering Facility: [facility] Address:[address] [place], [place] [address]Performed By: #### 61944-6 ####[facility] LABIA [id number] [place] [address] [place] WHITE HOSPITALMCH (RBC) [Entitic mass]28.1 zoNbhccl39.0-34.0[facility] on above:Order Comment: Specimen Type: BLOOD SPECIMENOrdering Facility: [facility] Address:[address] [place], [place] [address]Performed By: #### 62149-3 ####[facility] [id number] [address] STATES OF [place] MCHC (RBC) [Mass/Vol]32.8 g/eQNygawh48.5-36.0[facility] on above:Order Comment: Specimen Type: BLOOD SPECIMENOrdering Facility: [facility] Address:[address] [place] [address] Performed By: #### 92158-4 ####[facility] LABIA [id number] [place] [address] [place] MCV (RBC) [Entitic vol]85.6 wHLehmyq22.0-100.0[facility] on above:Order Comment: Specimen Type: BLOOD SPECIMENOrdering Facility: [facility] Address:[address] [place] [address] Performed By: #### 46091-3 ####[facility] LABCLIA [id number] [place] [address] [place] Nucleated RBC (Bld) [#/Vol]10*3/uLNormal<0.01[facility] on above:Order Comment: Specimen Type: BLOOD SPECIMENOrdering Facility: [facility] Address:[address] [place] [address] Performed By: #### 73827-4 ####[facility] LABCLIA [id number] [place] [address] [place] Platelet mean volume (Bld) [Entitic vol]12.5 fLNormal9.0-12.7CGlenbeigh Hospital on above:Order Comment: Specimen Type: BLOOD SPECIMENOrdering Facility: [facility] Address:[address] [place], [place] [address]Performed By: #### 72531-9 ####[facility] LABIA [id number] [place] [address] [place] Platelets (Bld) [#/Vol]121 10*3/iCKwq243-789ZtyyknvjuSouthwest General Health Center on above:Order Comment: Specimen Type: BLOOD SPECIMENOrdering Facility: [facility] Address:[address] [place], [place] [address]Result Comment: Results checked and verified.No clot detected.Performed By: #### 47715- 2 ####[facility] LABCLIA [id number] [place] [address] [place] AMERICARBC (Bld) [#/Vol]4.45 10*6/uL Normal4.20-6.00[facility] on above:Order Comment: Specimen Type: BLOOD SPECIMENOrdering Facility: [facility] Address:[address] [place], [place] [address]Performed By: #### 24676-2 ####[facility] LABCLIA [id number] [place] [address] [place] AMERICAWBC (Bld) [#/Vol]9.67 10*3/uL Normal3.70-11.00[facility] on above:Order Comment: Specimen Type: BLOOD SPECIMENOrdering Facility: [facility] Address:[address] [place], [place] [address]Performed By: #### 59957-0 ####[facility] LABCLIA [id number] [place] [address] [place] AMERICACONSULTon 66-22-6799OKEBHADVkgfcf [facility] HospitalECG COMPLETEon 89-18-7794HWH COMPLETENormalCSelect Medical Specialty Hospital - Southeast OhioHISTORY PHYSICALon 71-33-4412MZLVHGB PHYSICALNormalCSelect Medical Specialty Hospital - Southeast OhioMagnesium SerPl-mCncon 72-96-6208Wqwjwidoc [Mass/Vol]2.0 mg/dL Normal1.7-2.3CGlenbeigh Hospital on above:Order Comment: Specimen Type: BLOOD SPECIMENOrdering Facility: [facility] Address:[address] [place], [place] [address]Performed By: #### 08378-0, 27704-18, ####[facility] LABCLIA [id number] [address] [place] AMERICANUTRITIONon 91-98-8113GBPZEQJFH NormalBlanchard Valley Health System [facility] Valley HospitalPhosphate SerPl-mCncon 39-61-9204Lsfarcfim [Mass/Vol]2.3 mg/dLLow2.7-4.8ClevelMcKitrick Hospital on above:Order Comment: Specimen Type: BLOOD SPECIMENOrdering Facility: [facility] Address:[address] [place] [address]Performed By: #### 48614-0, 2777-1, ####[facility] LABCLIA [id number] [place] [address] [place] AMERICASEPSIS LACTATE on 06-90-4673Ophvfny [Moles/Vol]0.9 mmol/LNormal<=2.0[facility] Comment on above:Order Comment: Specimen Type: BLOOD SPECIMENOrdering Facility: [facility] Address:[address] [place] [address] Performed By: #### SLACT ####[facility] LABCLIA [id number] [place] [address] [place] AMERICATHERAPY NTon 04-09-9503JOMLSGQ NTNormalClevelFirstHealth Moore Regional HospitalUS KIDNEY/BLADDERon 07-34-8581JI KIDNEY/BLADDERNormalCSelect Medical Specialty Hospital - Southeast OhioUS LEG VEIN DVT MARIXA VAS LABon 27-78-5258EV LEG VEIN DVT MARIXA VAS LABNormalCSelect Medical Specialty [facility] [place] Bacteria Bld Culton 96-67-1492Loggehnw identified Cx Nom (Bld)CULTURE, BLOOD: No growth 5 daysNoMount Carmel Health SystemComment on above:Performed By: #### 600-7 ####[facility] LABCLIA [id number] [place] [address] [place] AMERICABasic metabolic 2000 panelon 68-24-5632Rdkdk gap [Moles/Vol]9 mmol/LNormal9-18[facility] HospitalComment on above:Order Comment: Specimen Type: BLOOD SPECIMENOrdering Facility: [facility] Address:[address] [place], [place] [address]Performed By: #### 2777-1, 57281-1, ####[facility] LABCLIA [id number] [address] [place] AMERICACalcium [Mass/Vol]8.7 mg/dLNormal8.5-10.2CSelect Medical Specialty Hospital - Southeast OhioComascension borgess hospital on above:Order Comment: Specimen Type: BLOOD SPECIMENOrdering Facility: [facility] Address:[address] [place], [place] [address]Performed By: #### 2777-1, 06909-8, ####[facility] LABCLIA [id number] [address] [place] AMERICAChloride [Moles/Vol]106 mmol/QNddl34-090AhagopgcxBlanchard Valley Health System [facility] Valley HospitalComment on above:Order Comment: Specimen Type: BLOOD SPECIMENOrdering Facility: [facility] Address:[address] [place], [place] [address]Performed By: #### 2777-1, 33778-0, ####[facility] LABIA [id number] [place]IL[place] [address] [place] AMERICACO2 [Moles/Vol]22 mmol/ILkdimt76-17MfrxfrqocBlanchard Valley Health System [facility] Comment on above:Order Comment: Specimen Type: BLOOD SPECIMENOrdering Facility: [facility] Address:[address] [place] [address] Performed By: #### 2777-1, 26158-7, ####[facility] LABIA [id number] VILLE [id number] [place] AMERICACreatinine [Mass/Vol]0.96 mg/dLNormal0.73-1.22[facility] Comment on above:Order Comment: Specimen Type: BLOOD SPECIMENOrdering Facility: [facility] Address:[address] [place] [address] Performed By: #### 2777-1, 21499-7, ####[facility] LABIA [id number] VILLE [address] [place] AMERICAESTIMATED GLOMERULAR FILTRATION RATE88 mL/min/1.73m???Normal>=60[facility] Valley HospitalComment on above:Order Comment: Specimen Type: BLOOD SPECIMENOrdering Facility: [facility] Address:[address] [place], [place] [address]Result Comment: Estimated Glomerular Filtration Rate (eGFR) is calculated using the 2020 CKD-EPI creatinine equation. This equation utilizes serum creatinine, sex, and age as parameters. The creatinine assay has traceable calibration to isotope dilution-mass spectrometry. Refer to KDIGO guidelines for clinical interpretation. In patients with unstable renal function, e.g. those with acute kidney injury, the eGFR may not accurately reflect actual GFR.Performed By: #### 2777-1, 45420-6, ####[facility] LABCLIA [id number] MARTIN MEMORIAL HEALTH SYSTEMSK [address] [address] [place] AMERICAGlucose [Mass/Vol]109 mg/eFTrms30-45VcerpvuluSouthwest General Health Center on above:Order Comment: Specimen Type: BLOOD SPECIMENOrdering Facility: [facility] Address:[address] [place] [address]Rfpkgz Comment: The [place] Diabetes Association (ADA) provides guidance for cutoff [...] unequivocal hyperglycemia, results should be confirmed by repeattesting. In a patient with classic symptoms of hyperglycemia or hyperglycemic crisis, random plasmaglucose results greater than or equal to 200 mg/dL meet the criteria for diagnosis of diabetes.Reference: Standards of Medical Care in Diabetes 2016, [place] [employer]. Diabetes Care. 2016.39(Suppl 1).Performed By: #### 2777-1, , ####[facility] LABCLIA [id number] AVENUEDESK [address] [address] [place] AMERICAPotassium [Moles/Vol] 4.3 mmol/LNormal3.7-5.1CGlenbeigh Hospital on above:Order Comment: Specimen Type: BLOOD SPECIMENOrdering Facility: [facility] Address:[place] [address]Gtphhloqt By: #### 2777-1, 52992-1, ####[facility] LABCLIA [id number] [address] [address] [place] AMERICASodium [Moles/Vol]137 mmol/SQlspno408-019XxkhmoxoqSouthwest General Health Center on above:Order Comment: Specimen Type: BLOOD SPECIMENOrdering Facility: [facility] Address:[address] [place], [place] [address]Performed By: #### 2777-1, 07485-2, ####[facility] LABCLIA [id number] [place] [address] [place] AMERICAUrea nitrogen [Mass/Vol]36 mg/dLHigh9-24[facility] on above:Order Comment: Specimen Type: BLOOD SPECIMENOrdering Facility: [facility] Address:[address] [place], [place] [address]Performed By: #### 2777-1, 61254-2, ####[facility] LABCLIA [id number] [address] OF AMERICACBC panel Auto (Bld)on 34-48-3756Grmljlexebg distribution width (RBC) [Ratio]17.2 %High 11.5-15.0[facility] on above:Order Comment: Specimen Type: BLOOD SPECIMENOrdering Facility: [facility] Address:[address] [place], [place] [address]Performed By: #### 29698-2 ####[facility] LABCLIA [id number] [place] [address] [place] AMERICAHematocrit (Bld) [Volume fraction]36.4 %Low 39.0-51.0[facility] on above:Order Comment: Specimen Type: BLOOD SPECIMENOrdering Facility: [facility] Address:[address] [place], [place] [address]Performed By: #### 50776-5 ####[facility] LABCLIA [id number] [place] [address] [place] AMERICAHemoglobin (Bld) [Mass/Vol]11.7 g/dLLow13.0-17.0 [facility] on above:Order Comment: Specimen Type: BLOOD SPECIMENOrdering Facility: [facility] Address:[address] [place] [address]Performed By: #### 20279-1 ####[facility] LABCLIA [id number] [place] [address] [place] WHITE HOSPITALMCH (RBC) [Entitic mass]27.9 waDbaqrs41.0-34.0[facility] on above:Order Comment: Specimen Type: BLOOD SPECIMENOrdering Facility: [facility] Address:[address] [place], [place] [address]Performed By: #### 47189-5 ####[facility] LABIA [id number] [place] [address] [place] MCHC (RBC) [Mass/Vol]32.1 g/uKUgbjwi82.5-36.0[facility] on above:Order Comment: Specimen Type: BLOOD SPECIMENOrdering Facility: [facility] Address:[address] [place] [address] Performed By: #### 18725-1 ####[facility] LABIA [id number] [place] [address] [place] MCV (RBC) [Entitic vol]86.9 uCEgkzyv99.0-100.0[facility] on above:Order Comment: Specimen Type: BLOOD SPECIMENOrdering Facility: [facility] Address:[address] [place] [address] Performed By: #### 73098-0 ####[facility] LABIA [id number] [place] [address] [place] Nucleated RBC (Bld) [#/Vol]10*3/uLNormal<0.01[facility] on above:Order Comment: Specimen Type: BLOOD SPECIMENOrdering Facility: [facility] Address:[address] [place], [place] [address] Performed By: #### 39649-8 ####[facility] LABIA [id number] [place] [address] [place] [facility] Platelet mean volume (Bld) [Entitic vol]NormalSouthwest General Health Center on above:Order Comment: Specimen Type: BLOOD SPECIMENOrdering Facility: [facility] Address:[address] [place], [place] [address] Result Comment: Unable to Report.Performed By: #### 10625-0 ####[facility] LABIA [id number] [place] [address] [place] AMERICAPlatelets (Bld) [#/Vol]103 10*3/vQKba421-049SsflmjwyiSouthwest General Health Center on above:Order Comment: Specimen Type: BLOOD SPECIMENOrdering Facility: [facility] Address:[address] [place], [place] [address]Result Comment: No clot detected.Results checked and verified.Performed By: #### 16447-2 ####[facility] LABIA [id number] [place] [address] [place] RBC (Bld) [#/Vol]4.19 10*6/uLLow4.20-6.00[facility] on above:Order Comment: Specimen Type: BLOOD SPECIMENOrdering Facility: [facility] Address:[address] [place] [address]Performed By: #### 80081-1 ####[facility] LABVERM[facility] [id number] [place] [address] [place] [facility] OF WHITE HOSPITALWBC (Bld) [#/Vol]9.45 10*3/uLNormal3.70-11.00[facility] on above:Order Comment: Specimen Type: BLOOD SPECIMENOrdering Facility: [facility] Address:[address] [place], [place] [address]Performed By: #### 56328-5 ####[facility] LABCLIA [id number] [place] [id number] [place] AMERICAECG COMPLETEon 79-54-9614FKD COMPLETENormalCSelect Medical Specialty Hospital - Southeast OhioMagnesium SerPl-mCncon 11-30-2022 Magnesium [Mass/Vol]2.1 mg/dLNormal1.7-2.3CGlenbeigh Hospital on above:Order Comment: Specimen Type: BLOOD SPECIMENOrdering Facility: [facility] Address:[address] [place], [place] [address]Performed By: #### 2777-1, 46714-9, ####[facility] LABIA [id number] [address] [place] Phosphate SerPl-mCwion 63-80-2568Jgfyzniaz [Mass/Vol]2.8 mg/dLNormal2.7-4.8 [facility] on above:Order Comment: Specimen Type: BLOOD SPECIMENOrdering Facility: [facility] Address:[address] [place] [address]Performed By: #### 2777-1, 45355-5, ####[facility] LABIA [id number] VILLE [id number] [place] AMERICAAmmonia Plas-sCncon 11-29-2022 Ammonia (P) [Moles/Vol]22 umol/QSvtygp39-61JrmnteotuSouthwest General Health Center on above:Order Comment: Specimen Type: BLOOD SPECIMENOrdering Facility: [facility] Address:[address] [place] [address]Result Comment: Result may be falsely increased due to the fact that the sample was not received onice.Performed By: #### 96853-5 ####[facility] LABCLIA [id number] [place] [address] [place] AMERICABasic metabolic 2000 panelon 73-21-5854Dkoqi gap [Moles/Vol]7 mmol/LLow 9-18[facility] on above:Order Comment: Specimen Type: BLOOD SPECIMENOrdering Facility: [facility] Address:[address] [place], [place] [address]Performed By: #### 71642-5, 2156-6, LIPNF, 93921- 2, 3016-3, 2777-1, 302-7 ####[facility] LABCLIA [id number] [place] [address] [place] Calcium [Mass/Vol]8.7 mg/dLNormal8.5-10.2CGlenbeigh Hospital on above:Order Comment: Specimen Type: BLOOD SPECIMENOrdering Facility: [facility] Address:[address] [place], [place] [address]Performed By: #### 67295-7, 2156-6, LIPNF, 29238-5, 3016-3, 2777-1, 3027 ####[facility] LABCLIA [id number] [place] [address] [place] AMERICAChloride [Moles/Vol]111 mmol/GZptk84-093QaeixqvggSouthwest General Health Center on above:Order Comment: Specimen Type: BLOOD SPECIMENOrdering Facility: [facility] Address:[address] [place], [place] [address]Performed By: #### 56766-5, 2156-6, LIPNF, 63619-1, 3016-3, 2777-1, 3027 ####[facility] LABCLIA [id number] [place] [id number] [place] AMERICACO2 [Moles/Vol] 23 mmol/XBqfeln86-37FenkzryawSouthwest General Health Center on above:Order Comment: Specimen Type: BLOOD SPECIMENOrdering Facility: [facility] Address:[address] [place], [place] [address]Performed By: #### 10080-7, 2156-6, LIPNF, 13843-5, 3016-3, 2777-1, 7 ####[facility] LABCLIA [id number] [place] [address] [place] AMERICACreatinine [Mass/Vol]1.08 mg/dLNormal0.73-1.22[facility] Comment on above:Order Comment: Specimen Type: BLOOD SPECIMENOrdering Facility: [facility] Address:[address] [place], [place] [address] Performed By: #### 41018-7, 2156-6, LIPNF, 80011-1, 3016-3, 7-1, 7 ####[facility] LABIA [id number] [place] [address] [place] AMERICAESTIMATED GLOMERULAR FILTRATION RATE77 mL/min/1.73m???Normal>=60[facility] HospitalComment on above:Order Comment: Specimen Type: BLOOD SPECIMENOrdering Facility: [facility] Address:[address] [place], [place] [id number] Comment: Estimated Glomerular Filtration Rate (eGFR) is calculated using the 2020 CKD-EPI creatinine equation. This equation utilizes serum creatinine, sex, and age as parameters. The creatinine assay has traceable calibration to isotope dilution- mass spectrometry. Refer to KDIGO guidelines for clinical interpretation. In patients with unstable renal function, e.g. those with acute kidney injury, the eGFR may not accurately reflect actual GFR.Performed By: #### 46280-2, 7-6, LIPNF, 93600-5, 6-3, 2776-1, 7 ####[facility] LABIA [id number] [address] [address] [place] Glucose [Mass/Vol]94 mg/yTOuwesb42-06XhtuffvkfBlanchard Valley Health System [facility] HospitalComment on above: Order Comment: Specimen Type: BLOOD SPECIMENOrdering Facility: [facility] Address:[address] [place], [place] [address]Result Comment: The [place] Diabetes Association (ADA) provides guidance for cutoff values for fast ing glucose and random glucose. The ADA defines fasting as no caloric intake for at least 8 hours. Fasting plasma glucose results between 100 to 125 mg/dL indicate increased risk for diabetes (prediabetes).Fasting plasma glucose results greater than or equal to 126 mg/dL meet the criteria for diagnosis of diabetes. In the absence of unequivocal hyperglycemia, results should be confirmed by repeattesting. In a patient with classic symptoms of hyperglycemia or hyperglycemic crisis, random plasmaglucose results greater than or equal to 200 mg/dL meet the criteria for diagnosis of diabetes.Reference: Standards of Medical Care in Diabetes 2016, [place] Diabetes Association. Diabetes Care. 2016.39(Suppl 1).Performed By: #### 38307-1, 2156-6, LIPNF, 71632-6, 6-3, 2776-1, 7 ####[facility] LABCLIA [id number] [address] [address] [place] OF AMERICAPotassium [Moles/Vol] 4.2 mmol/LNormal3.7-5.1CSelect Medical Specialty Hospital - Southeast OhioComment on above:Order Comment: Specimen Type: BLOOD SPECIMENOrdering Facility: [facility] Address:[address] [place], [place] [address]Performed By: #### 52924-4, 6, LIPNF, 17220-3, 3015-3, 2776-1, 7 ####[facility] LABIA [id number] [place] [id number] [place] OF AMERICASodium [Moles/Vol]141 mmol/SKowddz116-449UxbxqxartBlanchard Valley Health System [facility] Comment on above:Order Comment: Specimen Type: BLOOD SPECIMENOrdering Facility: [facility] Address:[address] [place] [address] Performed By: #### 08646-7, 6, LIPNF, 84899-8, 6-3, 2776-1, 7 ####[facility] LABCLIA [id number] [address] [address] [place] AMERICAUrea nitrogen [Mass/Vol]38 mg/dL High9-24[facility] on above:Order Comment: Specimen Type: BLOOD SPECIMENOrdering Facility: [facility] Address:[address] [place], [place] [address]Performed By: #### 95605-8, 2157-6, LIPNF, 47148-8, 3016-3, 2777-1, 3024-7 ####[facility] LABCLIA [id number] [place] [address] [place] CBC panel Auto (Bld)on 33-43-4821Egxpuvpaorc distribution width (RBC) [Ratio] 17.2 %High11.5-15.0[facility] on above:Order Comment: Specimen Type: BLOOD SPECIMENOrdering Facility: [facility] Address:[address] [place], [place] [address]Performed By: #### 93263-1 ####[facility] LABIA [id number] [address] ST[address]ETHematocrit (Bld) [Volume fraction]33.5 %Low39.0-51.0[facility] on above:Order Comment: Specimen Type: BLOOD SPECIMENOrdering Facility: [facility] Address:[address] [place], [place] [address]Performed By: #### 29850-7 ####[facility] LABIA [id number] [place] [address] [place] WHITE HOSPITALHemoglobin (Bld) [Mass/Vol]11.1 g/dLLow13.0-17.0[facility] on above:Order Comment: Specimen Type: BLOOD SPECIMENOrdering Facility: [facility] Address:[address] [place], [place] [address]Performed By: #### 08739-9 ####[facility] LABCLIA [id number] [place] [address] [facility] OF AMERICAMCH (RBC) [Entitic mass]27.8 nxCqdkzs16.0-34.0[facility] on above:Order Comment: Specimen Type: BLOOD SPECIMENOrdering Facility: [facility] Address:[address] [place], [place] [address]Performed By: #### 03895-6 ####[facility] LABCLIA [id number] [address]ETMCHC (RBC) [Mass/Vol] 33.1 g/nNJpyfxd95.5-36.0[facility] on above:Order Comment: Specimen Type: BLOOD SPECIMENOrdering Facility: [facility] Address:[address] [place], [place] [address]Performed By: #### 00721-3 ####[facility] LABCLIA [id number] [address] STATES OF WHITE HOSPITALMCV (RBC) [Entitic vol]83.8 tJYsvdyu05.0-100.0[facility] on above:Order Comment: Specimen Type: BLOOD SPECIMENOrdering Facility: [facility] Address:[address] [place], [place] [address]Performed By: #### 08494-4 ####[facility] LABCLIA [id number] [address]ucleated RBC (Bld) [#/Vol]10*3/uLNormal<0.01[facility] on above:Order Comment: Specimen Type: BLOOD SPECIMENOrdering Facility: [facility] Address:[address] [place], [place] [address]Performed By: #### 50218-3 ####[facility] LABCLIA [id number] [address] STATES [facility] AND MEDICAL CENTERPlatelet mean volume (Bld) [Entitic vol]12.8 fLHigh9.0-12.7CGlenbeigh Hospital on above:Order Comment: Specimen Type: BLOOD SPECIMENOrdering Facility: [facility] Address:[address] [place], [place] [address]Performed By: #### 34821-0 ####[facility] LABCLIA [id number] [address]ETPlatelets (Bld) [#/Vol]101 10*3/hPUgi201-002YvvvwtxrdSouthwest General Health Center on above:Order Comment: Specimen Type: BLOOD SPECIMENOrdering Facility: [facility] Address:[address] [place], [place] [address]Result Comment: Results checked and verified.No clot detected.Performed By: #### 63746-7 ####[facility] LABCLIA [id number] [address]ETRB (Bld) [#/Vol]4.00 10*6/uLLow 4.20-6.00[facility] on above:Order Comment: Specimen Type: BLOOD SPECIMENOrdering Facility: [facility] Address:[address] [place], [place] [address]Performed By: #### 82813-5 ####[facility] LABCLIA [id number] [address]ETWBC (Bld) [#/Vol]11.59 10*3/uLHigh3.70-11.00 [facility] on above:Order Comment: Specimen Type: BLOOD SPECIMENOrdering Facility: [facility] Address:[address] [place], [place] [address]Performed By: #### 41930-9 ####[facility] LABIA [id number] [address] SerPl-cCncon 41-61-7546KP [Catalytic activity/Vol]21 U/LLow 51-298[facility] on above:Order Comment: Specimen Type: BLOOD SPECIMENOrdering Facility: [facility] Address:[address]Performed By: #### 25142-1, 2157-6, LIPNF, 94956-2, 3016-3, 2777-1, 3024-7 ####[facility] LABCLIA [id number] [place] [address] [place] AMERICACT BRAIN WO IVCONon 35-50-6600DU BRAIN WO IVCONNormalBlanchard Valley Health System Blanchard Valley HospitalECG COMPLETE on 90-74-9817UXM COMPLETENormalCSelect Medical Specialty Hospital - Southeast OhioGa and Carbon monoxide panel (BldV)on 49-01-1667HXZV DEFICIT, VENOUS-2 mmol/ZMogeza-4-5KsiarwfqzBlanchard Valley Health System [facility]ard Valley HospitalComment on above:Order Comment: Specimen Type: VENOUS BLOOD SPECIMENOrdering Facility: [facility] Address: [address] [place], [place] [address]Performed By: #### 21047-3 ####[facility] LABIA [id number] [place] [address] [place] AMERICABody glovetltzyx66.6 [degF]NormalBlanchard Valley Health System [facility] Comment on above:Order Comment: Specimen Type: VENOUS BLOOD SPECIMENOrdering Facility: [facility] Address: [address] [place], [place] [address]Performed By: #### 37018-5 ####[facility] LABIA [id number] [place] [address] [place] Calcium.ionized (Bld) [Mass/Vol]1.22 mmol/LNormal1.08-1.30[facility] on above:Order Comment: Specimen Type: VENOUS BLOOD SPECIMENOrdering Facility: [facility] Address: [address] [place], [place] [address]Performed By: #### 72930-2 ####[facility] LABCLIA [id number] [place] [address] [place] AMERICACalcium.ionized adjusted to pH 7.4 (BldA) [Moles/Vol]1.21 mmol/LNormal1.08-1.30[facility] on above:Order Comment: Specimen Type: VENOUS BLOOD SPECIMENOrdering Facility: [facility] Address: [address] [place], [place] [address]Performed By: #### 42815-4 ####[facility] LABCLIA [id number] [place] [address] [place] AMERICACarboxyhemoglobin (BldV) [Mass fraction]0.4 %Normal0.0-2.0[facility] on above:Order Comment: Specimen Type: VENOUS BLOOD SPECIMENOrdering Facility: [facility] Address: [address] [place] [address] Result Comment: Carboxyhemoglobin Reference Range for Smokers: 2.0-8.0%Performed By: #### 48809-4 ####[facility] LABCLIA [id number] [place] [address] [place] AMERICACO2 (BldV) [Partial pressure]39 mm[Hg]Kvc93-64PhhqlpvbySouthwest General Health Center on above:Order Comment: Specimen Type: VENOUS BLOOD SPECIMENOrdering Facility: [facility] Address: [address] [place], [place] [address]Performed By: #### 28256-0 ####[facility] LABCLIA [id number] [place] [address] [place] AMERICACO2 [Moles/Vol]23 mmol/AEqr18-30VkdfujfajSouthwest General Health Center on above:Order Comment: Specimen Type: VENOUS BLOOD SPECIMENOrdering Facility: [facility] Ad dress: [address] [place] [phone] By: #### 74971-9 ####[facility] LABCLIA [id number] [place] [address] [place] AMERICAGlucose [Mass/Vol]155 mg/dLHigh 60-105[facility] on above:Order Comment: Specimen Type: VENOUS BLOOD SPECIMENOrdering Facility: [facility] Address: [address] [place] [address]Performed By: #### 12272-8 ####[facility] LABCLIA [id number] [place] [address] [place] AMERICAHCO3 (Bld) [Moles/Vol]22 mmol/L Qcc48-82CyhqzmxwnSouthwest General Health Center on above:Order Comment: Specimen Type: VENOUS BLOOD SPECIMENOrdering Facility: [facility] Address: [address] [place], [place] [address]Performed By: #### 96833-8 ####[facility] LABCLIA [id number] [place] [address] [place] AMERICAHematocrit (Bld) [Volume fraction]36.7 %Low39.0-51.0[facility] on above:Order Comment: Specimen Type: VENOUS BLOOD SPECIMENOrdering Facility: [facility] Address: [address] [place] [address]Performed By: #### 08533-7 ####[facility] LABCLIA [id number] [place] [address] [place] AMERICAHemoglobin (Bld) [Mass/Vol]11.9 g/dLLow13.0-17.0[facility] on above:Order Comment: Specimen Type: VENOUS BLOOD SPECIMENOrdering Facility: [facility] Address: [address] [place] [address]Performed By: #### 31578-4 ####[facility] LABCLIA [id number] [place] [address] [place] AMERICALactate [Moles/Vol]1.9 mmol/LNormal0.5-2.2CGlenbeigh Hospital on above:Order Comment: Specimen Type: VENOUS BLOOD SPECIMENOrdering Facility: [facility] Address: [address] [place] [address]Performed By: #### 29810-3 ####[facility] LABCLIA [id number] [place] [address] [place] AMERICALITERS2 Liters/min NormalSouthwest General Health Center on above:Order Comment: Specimen Type: VENOUS BLOOD SPECIMENOrdering Facility: [facility] Address: [address] [place] [address]Performed By: #### 67179-0 ####[facility] LABCLIA [id number] [place] [address] [place] AMERICAMethemoglobin (Bld) [Mass fraction]1.6 %High0.0-1.5CGlenbeigh Hospital on above:Order Comment: Specimen Type: VENOUS BLOOD SPECIMENOrdering Facility: [facility] Address: [address] [place], [place] [address]Performed By: #### 70542-3 ####[facility] LABIA [id number] [place] [address] [place] AMERICAO2 THERAPYNC = Nasal CannulaNormalCGlenbeigh Hospital on above:Order Comment: Specimen Type: VENOUS BLOOD SPECIMENOrdering Facility: [facility] Ad dress: [address] [place] [phone] By: #### 47699-6 ####[facility] LABIA [id number] [place] [address] [place] AMERICAOxygen (BldV) [Partial pressure] 104 mm[Hg]Enji17-51XniwzpvmbSouthwest General Health Center on above:Order Comment: Specimen Type: VENOUS BLOOD SPECIMENOrdering Facility: [facility] Address: [address] [place] [phone] By: #### 74878-7 ####[facility] LABIA [id number] [place] [address] [place] AMERICAOxygen saturation in Venous blood97 %Cljo99-32HzwmlbzrySouthwest General Health Center on above:Order Comment: Specimen Type: VENOUS BLOOD SPECIMENOrdering Facility: [facility] Address: [address]Performed By: #### 05246-2 ####[facility] LABIA [id number] [place] [address] [place] AMERICAOxyhemoglobin (BldV) [Mass fraction]95 %Fkcb42-12JwgevgrdvSouthwest General Health Center on above:Order Comment: Specimen Type: VENOUS BLOOD SPECIMENOrdering Facility: [facility] Address: [address] [place] [address]Performed By: #### 33439-1 ####[facility] LABIA [id number] [place] [address] [place] AMERICApH (BldV)7.37 [pH] Normal7.32-7.42[facility] on above:Order Comment: Specimen Type: VENOUS BLOOD SPECIMENOrdering Facility: [facility] Address: [address] [place], [place] [address]Performed By: #### 46863-9 ####[facility] LABIA [id number] [place] [address] [place] AMERICAPotassium [Moles/Vol] 4.1 mmol/LNormal3.5-5.0[facility] on above:Order Comment: Specimen Type: VENOUS BLOOD SPECIMENOrdering Facility: [facility] Address: [address] [place] [address]Performed By: #### 78002-1 ####[facility] LABIA [id number] [place] [address] [place] AMERICASodium [Moles/Vol]135 mmol/KKry927-105VplujpentSouthwest General Health Center on above:Order Comment: Specimen Type: VENOUS BLOOD SPECIMENOrdering Facility: [facility] Address: [address] [place], [place] [address]Performed By: #### 32290-0 ####[facility] LABIA [id number]OSS ST[address]ETLIPID PANEL, NONFASTINGon 45-19-2280Tviszcwffxl [Mass/Vol]79 mg/dLNormal<200[facility] on above:Order Comment: Specimen Type: BLOOD SPECIMENOrdering Facility: [facility] Address:[address] [place], [place] [address]Result Comment: <200 mg/dL, Desirable 200-239 mg/dL, Borderline high>239 mg/dL, HighPerformed By: #### 06099-5, 2156-6, LIPNF, 33717-4, 3016-3, 2777-1, 3024-7 ####[facility] LABCLIA [id number] [address]ETHDL CHOLESTEROL, NF15 mg/dLLow>39[facility] on above:Order Comment: Specimen Type: BLOOD SPECIMENOrdering Facility: [facility] Address:[address] [place], [place] [address]Result Comment: 40-59 mg/dL, Acceptable>59 mg/dL, High: Negative risk factor for coronary heart disease<40 mg/dL, Low: Positive risk factor for coronary heart diseasePerformed By: #### 17808-9, 6, LIPNF, 42180-4, 3016-3, 2777-1, 3024-7 ####[facility] LABCLIA [id number] [address] STATES OF AMERICALDL CHOLESTEROL, NF41 mg/dLNormal<100[facility] on above:Order Comment: Specimen Type: BLOOD SPECIMENOrdering Facility: [facility] Address:[address] [place] [address] Result Comment: <100 mg/dL, Optimal 100-129 mg/dL, Near optimal/above optimal 130-159 mg/dL, Borderline high 160-189 mg/dL, High>189 mg/dL, Very highSecondary prevention optimal LDL Cholesterollevels are recommended to be < 70 mg/dL Performed By: #### 39643-9, 2157-6, LIPNF, 73172-6, 6-3, 2776-1, 3024-04 ####[facility] LABCLIA [id number] [place] [id number] [place] WHITE HOSPITALLDL/HDL RATIO, NF2.73 mg/dLHigh <2.54[facility] on above:Order Comment: Specimen Type: BLOOD SPECIMENOrdering Facility: [facility] Address:[address] [place], [place] [address]Result Comment: Reference:1. National Cholesterol Education Program ATP III Guideline At-A-Glance Quick Desk Reference: National Heart, Lung, and Blood [place]. National Institutes of Health. 2001:NIH Publication No. 01-3305.2. An International Atherosclerosis Society position paper: global recommendations for the management of dyslipidemia: executive summary, Atherosclerosis. 2014: 232(2):410-413.Performed By: #### 21442-6, 6, LIPMAYITO, 79954-7, 3015-3, 2776-, 3024-04 ####[facility] LABCLIA [id number] [place] [id number] [place] AMERICANON HDL CHOL, NF64 mg/dLNormal<130[facility] on above:Order Comment: Specimen Type: BLOOD SPECIMENOrdering Facility: [facility] Address:[address] [place] [phone] Comment: <130 mg/dL, Optimal 130-159 mg/dL, Near optimal/above optimal 160-189 mg/dL, Borderline high 190-219 mg/dL, High>219 mg/dL, Very highSecondary prevention optimal non HDL Cholesterol levels are recommended to be <100 mg/dL Performed By: #### 38336-1, 6, LIPNF, 90469-3, 6-3, 2776-1, 3024-04 ####[facility] LABCLIA [id number] [address] [address] [place] STATES OF WHITE HOSPITALT CHOL/HDL RATIO NF5.27 mg/dLHigh <5.10[facility] on above:Order Comment: Specimen Type: BLOOD SPECIMENOrdering Facility: [facility] Address:[address] [place], [place] [address]Performed By: #### 08519-3, 2156-6, LIPNF, 27533- 2, 3016-3, 7-1, 7 ####[facility] LABCLIA [id number] [place] [address] [place] TRIGLYCERIDES, NF117 mg/dLNormal<150[facility] on above: Order Comment: Specimen Type: BLOOD SPECIMENOrdering Facility: [facility] Address:[address] [place], [place] [address]Result Comment: <150 mg/dL, Normal 150-199 mg/dL, Borderline high 200-499 mg/dL, High>499 mg/dL, Very highPerformed By: #### 34905-8, 6, LIPNF, 29154-4, 6-3, 2776-1, 7 ####[facility] LABIA [id number] [place] [address] [place] AMERICAVLDL CHOLESTEROL, NF23 mg/dL Normal<30[facility] on above:Order Comment: Specimen Type: BLOOD SPECIMENOrdering Facility: [facility] Address:[address] [place], [place] [address]Performed By: #### 21055-4, 6, LIPNF, 05999-7, 6-3, 2776-1, 3024-04 ####[facility] LABIA [id number] [place] [address] [place] Magnesium SerPl-mCncon 46-53-8567Nfzfbgleb [Mass/Vol]2.3 mg/dLNormal1.7-2.3 [facility] on above:Order Comment: Specimen Type: BLOOD SPECIMENOrdering Facility: [facility] Address:[address] [place], [place] [address]Performed By: #### 10647-7, 2156-6, LIPNF, 66076-1, 3016-3, 2777-1, 3024-04 ####[facility] LABCLIA [id number] [place] [address] [place] AMERICAPhosphate SerPl-mCncon 32-30-1392Trpdqweaz [Mass/Vol]2.6 mg/dLLow2.7-4.8CGlenbeigh Hospital on above:Order Comment: Specimen Type: BLOOD SPECIMENOrdering Facility: [facility] Address:[address] [place], [place] [address]Performed By: #### 50995-5, 2156-6, LIPNF, 30302-1, 3015-3, 2776-, 3024-04 ####[facility] LABCLIA [id number] [place] [address] [place] AMERICAT4 Free SerPl-mCncon 11-29-2022 Free T4 [Mass/Vol]0.6 ng/dLLow0.9-1.7CGlenbeigh Hospital on above: Order Comment: Specimen Type: BLOOD SPECIMENOrdering Facility: [facility] Address:[address] [place], [place] [address]Performed By: #### 75840-2, 6, LIPNF, 11665-8, 3015-3, 1, 3024-04 ####[facility] LABCLIA [id number] [place] [address] [place] AMERICATS SerPl-aCncon 90-61-1293NHA Qn0.221 m[IU]/LLow 0.270-4.200[facility] on above:Order Comment: Specimen Type: BLOOD SPECIMENOrdering Facility: [facility] Address:[address] [place], [place] [address]Performed By: #### 48283-5, 2156-6, LIPNF, 64359-3, 3016-3, 2777-1, 3024-7 ####[facility] LABCLIA [id number] [place] [id number] [place] Basic metabolic 2000 panelon 23-25-8261Zzqbe gap [Moles/Vol]10 mmol/LNormal9-18 [facility] on above:Order Comment: Specimen Type: BLOOD SPECIMENOrdering Facility: [facility] Address:[address] [place] [address]Performed By: #### 68514-9, 2776-, ####[facility] LABCLIA [id number] [address] [place] AMERICACalcium [Mass/Vol]8.6 mg/dLNormal 8.5-10.2CGlenbeigh Hospital on above:Order Comment: Specimen Type: BLOOD SPECIMENOrdering Facility: [facility] Address:[address] [place] [address]Performed By: #### 25156-4, 2776-10, ####[facility] LABCLIA [id number] [address] [place] AMERICAChloride [Moles/Vol]109 mmol/L Xuhe01-536FlygcnzauSouthwest General Health Center on above:Order Comment: Specimen Type: BLOOD SPECIMENOrdering Facility: [facility] Address:[address] [place] [address]Performed By: #### 17644-2, 2776-10, ####[facility] LABCLIA [id number] VILLE [id number] [place] AMERICACO2 [Moles/Vol]21 mmol/DXsc30-78 [facility] on above:Order Comment: Specimen Type: BLOOD SPECIMENOrdering Facility: [facility] Address:[address] [place] [address]Performed By: #### 34448-0, 2776-10, ####[facility] LABCLIA [id number] [address] [place] AMERICACreatinine [Mass/Vol]1.31 mg/dL High0.73-1.22[facility] on above:Order Comment: Specimen Type: BLOOD SPECIMENOrdering Facility: [facility] Address:[address] [place], [place] [address]Performed By: #### 60032-7, 2776-10, ####[facility] LABIA [id number] VILLE [address] [place] OF AMERICAESTIMATED GLOMERULAR FILTRATION RATE61 mL/min/1.73m???Normal>=60[facility] on above:Order Comment: Specimen Type: BLOOD SPECIMENOrdering Facility: [facility] Address:[address] [place] [address]Result Comment: Estimated Glomerular Filtration Rate (eGFR) is calculated using the 2020 CKD-EPI creatinine equation. This equation utilizes serum creatinine, sex, and age as parameters. The creatinine assay has traceable calibration to isotope dilution- mass spectrometry. Refer to KDIGO guidelines for clinical interpretation. In patients with unstable renal function, e.g. those with acute kidney injury, the eGFR may not accurately reflect actual GFR.Performed By: #### 84361-9, 2776-10, ####[facility] LABIA [id number] VILLE [id number] [place] AMERICAGlucose [Mass/Vol]113 mg/dLHigh 74-99[facility] on above:Order Comment: Specimen Type: BLOOD SPECIMENOrdering Facility: [facility] Address:[address] [place] [address]Result Comment: The [place] Diabetes Association (ADA) provides guidance for cutoff values for fasting glucose and random glucose. The ADA defines fasting as no caloric intake for at least 8 hours. F asting plasma glucose results between 100 to 125 mg/dL indicate increased risk for diabetes (prediabetes).Fasting plasma glucose results greater than or equal to 126 mg/dL meet the criteria for diagnosis of diabetes. In the absence of unequivocal hyperglycemia, results should be confirmed by repeattesting. In a patient with classic symptoms of hyperglycemia or hyperglycemic crisis, random plasmaglucose results greater than or equal to 200 mg/dL meet the criteria for diagnosis of diabetes.Reference: Standards of Medical Care in Diabetes 2016, [place] Diabetes Association. Diabetes Care. 2016.39(Suppl 1).Performed By: #### 24700-6, 2776-10, ####[facility] [id number] [address] [place] Potassium [Moles/Vol]4.9 mmol/LNormal3.7-5.1CGlenbeigh Hospital on above:Order Comment: Specimen Type: BLOOD SPECIMENOrdering Facility: [facility] Address:[address] [place], [place] [id number] By: #### 03183-8, 2776-10, ####[facility] [id number] [address] [place] Sodium [Moles/Vol]140 mmol/LVqlpmg400-612VqccjjmjrSouthwest General Health Center on above:Order Comment: Specimen Type: BLOOD SPECIMENOrdering Facility: [facility] Address:[address] [place], [place] [address]Performed By: #### 37713-0, 2776-10, ####[facility] LABIA [id number] [address] [place] Urea nitrogen [Mass/Vol]38 mg/dLHigh9-24[facility] on above:Order Comment: Specimen Type: BLOOD SPECIMENOrdering Facility: [facility] Address:[address] [place] [address]Performed By: #### 17223-4, 2776-10, ####[facility] LABIA [id number] VILLE [id number] [place] CBC panel Auto (Bld)on 28-28-4146Zjrytbfwhtt distribution width (RBC) [Ratio] 17.4 %High11.5-15.0[facility] on above:Order Comment: Specimen Type: BLOOD SPECIMENOrdering Facility: [facility] Address:[address] [place], [place] [address]Performed By: #### 80417-5 ####[facility] LABCLIA [id number] [address]ETHematocrit (Bld) [Volume fraction]33.3 %Low39.0-51.0[facility] on above:Order Comment: Specimen Type: BLOOD SPECIMENOrdering Facility: [facility] Address:[address] [place], [place] [address]Performed By: #### 54508-2 ####[facility] LABCLIA [id number] [address]ETHemoglobin (Bld) [Mass/Vol]10.8 g/dLLow13.0-17.0[facility] on above:Order Comment: Specimen Type: BLOOD SPECIMENOrdering Facility: [facility] Address:[address] [place], [place] [address]Performed By: #### 76100-5 ####[facility] LABIA [id number] [address] (RBC) [Entitic mass]28.1 mkWxfckx84.0-34.0[facility] on above:Order Comment: Specimen Type: BLOOD SPECIMENOrdering Facility: [facility] Address:[address] [place], [place] [address]Performed By: #### 91034-1 ####[facility] LABCLIA [id number] [address] (RBC) [Mass/Vol] 32.4 g/fEWszstr68.5-36.0[facility] on above:Order Comment: Specimen Type: BLOOD SPECIMENOrdering Facility: [facility] Address:[address] [place], [place] [address]Performed By: #### 41528-4 ####[facility] LABIA [id number] [place] [address] [place] AMERICAMCV (RBC) [Entitic vol]86.5 rDRljxrb76.0-100.0[facility] on above:Order Comment: Specimen Type: BLOOD SPECIMENOrdering Facility: [facility] Address:[address] [place], [place] [address]Performed By: #### 95262-8 ####[facility] LABIA [id number] [place] [address] [place] AMERICANucleated RBC (Bld) [#/Vol]10*3/uLNormal<0.01[facility] on above:Order Comment: Specimen Type: BLOOD SPECIMENOrdering Facility: [facility] Address:[address] [place] [address]Performed By: #### 85690-2 ####[facility] LABIA [id number] [place] [address] [place] AMERICAPlatelet mean volume (Bld) [Entitic vol]13.2 fLHigh9.0-12.7CGlenbeigh Hospital on above:Order Comment: Specimen Type: BLOOD SPECIMENOrdering Facility: [facility] Address:[address] [place] [address]Performed By: #### 03554-7 ####[facility] LABIA [id number] [place] [address] [place] AMERICAPlatelets (Bld) [#/Vol]76 10*3/uIIeh902-873AlkbnmcpnSouthwest General Health Center on above:Order Comment: Specimen Type: BLOOD SPECIMENOrdering Facility: [facility] Address:[address]Result Comment: Results checked and verified.No clot detected.Performed By: #### 68361-8 ####[facility] LABCLIA [id number] [address]ETRBC (Bld) [#/Vol]3.85 10*6/uLLow 4.20-6.00[facility] on above:Order Comment: Specimen Type: BLOOD SPECIMENOrdering Facility: [facility] Address:[address] [place], [place] [address]Performed By: #### 39117-3 ####[facility] LABIA [id number] [address]ETWBC (Bld) [#/Vol]10.98 10*3/uLNormal3.70-11.00 [facility] on above:Order Comment: Specimen Type: BLOOD SPECIMENOrdering Facility: [facility] Address:[address] [place], [place] [address]Performed By: #### 51478-8 ####[facility] LABIA [id number] [place] [address] [place] AMERICACONSULTon 03-21-2775NUCCBAPTmeirfNjlkrftgo Clinic [facility] Magnesium SerPl-mCncon 17-34-4143Nbkrjqpli [Mass/Vol]2.1 mg/dLNormal1.7-2.3 [facility] on above:Order Comment: Specimen Type: BLOOD SPECIMENOrdering Facility: [facility] Address:[address] [place], [place] [address]Performed By: #### 79433-5, 2777-1, 90819-4 ####[facility] LABCLIA [id number] [address] [place] AMERICAPhosphate SerPl-mCncon 11-28-2022 Phosphate [Mass/Vol]3.4 mg/dLNormal2.7-4.8CGlenbeigh Hospital on above:Order Comment: Specimen Type: BLOOD SPECIMENOrdering Facility: [facility] Address:[address] [place], [place] [address]Performed By: #### 01747-3, 2777-1, 87595-9 ####[facility] LABCLIA [id number] [address] [place] THERAPY NTon 53-86-4462XESXGFJ NTNormalCProMedica [facility] metabolic 2000 panelon 67-20-6506Jhgvo gap [Moles/Vol]13 mmol/LNormal9-18[facility] on above:Order Comment: Specimen Type: BLOOD SPECIMENOrdering Facility: [facility] Address:[address] [place], [place] [address]Performed By: #### 68294-3 ####[facility] LABCLIA [id number] [place] [address] [place] Calcium [Mass/Vol]8.3 mg/dLLow8.5-10.2CGlenbeigh Hospital on above:Order Comment: Specimen Type: BLOOD SPECIMENOrdering Facility: [facility] Address:[address] [place], [place] [address]Performed By: #### 70269-3 ####[facility] LABCLIA [id number] [place] [address] [place] AMERICAChloride [Moles/Vol] 109 mmol/BJpzw89-145KpcugtvflSouthwest General Health Center on above:Order Comment: Specimen Type: BLOOD SPECIMENOrdering Facility: [facility] Address:[address] [place], [place] [address]Performed By: #### 39972-1 ####[facility] LABCLIA [id number] [place] [address] [place] AMERICACO2 [Moles/Vol]18 mmol/SOse93-59 [facility] on above:Order Comment: Specimen Type: BLOOD SPECIMENOrdering Facility: [facility] Address:[address] [address]Performed By: #### 36663-2 ####[facility] LABVERM[facility] [id number] [place] [address] [place] WHITE HOSPITALCreatinine [Mass/Vol]1.52 mg/dLHigh0.73-1.22[facility] on above:Order Comment: Specimen Type: BLOOD SPECIMENOrdering Facility: [facility] Address:[address] [place], [place] [address]Performed By: #### 13590-1 ####[facility] [id number] [place] [address] [place] ESTIMATED GLOMERULAR FILTRATION RATE51 mL/min/1.73m???Low>=60[facility] on above:Order Comment: Specimen Type: BLOOD SPECIMENOrdering Facility: [facility] Address:[address] [place], [place] [address]Result Comment: Estimated Glomerular Filtration Rate (eGFR) is calculated using the 2020 CKD-EPI creatinine equation. This equation utilizes serum creatinine, sex, and age as parameters. The creatinine assay has traceable calibration to isotope dilution-mass spectrometry. Refer to KDIGO guidelines f or clinical interpretation. In patients with unstable renal function, e.g. those with acute kidney injury, the eGFR may not accurately reflect actual GFR. Performed By: #### 78540-2 ####[facility] [id number] [place] [address] [place] Glucose [Mass/Vol]154 mg/dFMlly77-52NncucfiuySouthwest General Health Center on above: Order Comment: Specimen Type: BLOOD SPECIMENOrdering Facility: [facility] Address:[address] [place], [place] [address]Result Comment: The [place] Diabetes Association (ADA) provides guidance for cutoff values for fast ing glucose and random glucose. The ADA defines fasting as no caloric intake for at least 8 hours. Fasting plasma glucose results between 100 to 125 mg/dL indicate increased risk for diabetes (prediabetes).Fasting plasma glucose results greater than or equal to 126 mg/dL meet the criteria for diagnosis of diabetes. In the absence of unequivocal hyperglycemia, results should be confirmed by repeattesting. In a patient with classic symptoms of hyperglycemia or hyperglycemic crisis, random plasmaglucose results greater than or equal to 200 mg/dL meet the criteria for diagnosis of diabetes.Reference: Standards of Medical Care in Diabetes 2016, [place] [employer] Association. Diabetes Care. 2016.39(Suppl 1).Performed By: #### 71738-6 ####[facility] LABCLIA [id number] [place] [address] [place] AMERICAPotassium [Moles/Vol]4.6 mmol/LNormal3.7-5.1CSelect Medical Specialty [facility] [place] Comment on above:Order Comment: Specimen Type: BLOOD SPECIMENOrdering Facility: [facility] Address:[address] [place] [address] Performed By: #### 12028-9 ####[facility] LABIA [id number] [place] [address] [place] Sodium [Moles/Vol]140 mmol/JQswtfs519-158IczcqmmltBlanchard Valley Health System Blanchard Valley HospitalComment on above:Order Comment: Specimen Type: BLOOD SPECIMENOrdering Facility: [facility] Address:[address] [place], [place] [address]Performed By: #### 78300-2 ####[facility] [id number] [place] [address] [place] AMERICAUrea nitrogen [Mass/Vol]43 mg/dLHigh9-24[facility] on above:Order Comment: Specimen Type: BLOOD SPECIMENOrdering Facility: [facility] Address:[address] [place], [place] [address]Performed By: #### 50205-9 ####[facility] LABIA [id number] [place] [address] [place] AMERICAAnion gap [Moles/Vol] 14 mmol/LNormal9-18[facility] on above:Order Comment: Specimen Type: BLOOD SPECIMENOrdering Facility: [facility] Address:[address] [place], [place] [address]Performed By: #### 73128-4, 81837-1, 2776-10 ####[facility] LABCLIA [id number] [address] [place] AMERICACalcium [Mass/Vol]8.7 mg/dLNormal8.5-10.2CGlenbeigh Hospital on above:Order Comment: Specimen Type: BLOOD SPECIMENOrdering Facility: [facility] Address:[address] [place], [place] [address]Performed By: #### 92842-1, 45360-4, 27704-18 ####[facility] LABCLIA [id number] [address] [place] AMERICAChloride [Moles/Vol] 109 mmol/YGkdx52-434TarpsaobhSouthwest General Health Center on above:Order Comment: Specimen Type: BLOOD SPECIMENOrdering Facility: [facility] Address:[address] [place], [place] [address]Performed By: #### 80289-6, 25270-4, 2776-10 ####[facility] LABCLIA [id number] [address] [place] AMERICACO2 [Moles/Vol]17 mmol/BPzz11-89WfbcmuunmSouthwest General Health Center on above:Order Comment: Specimen Type: BLOOD SPECIMENOrdering Facility: [facility] Address:[address] [place], [place] [address]Performed By: #### 72526-3, 47365-5, 2776-10 ####[facility] LABCLIA [id number] [address] [place] AMERICACreatinine [Mass/Vol]1.75 mg/dL High0.73-1.22[facility] on above:Order Comment: Specimen Type: BLOOD SPECIMENOrdering Facility: [facility] Address:[address] [place] [address]Rfkxolfda By: #### 89805-7, 23376-7, 2777-1 ####[facility] LABVERMONT [facility] [id number] VILLE [id number] [place] AMERICAESTIMATED GLOMERULAR FILTRATION RATE43 mL/min/1.73m???Low>=60[facility] on above:Order Comment: Specimen Type: BLOOD SPECIMENOrdering Facility: [facility] Address:[address] [place], [place] [address]Result Comment: Estimated Glomerular Filtration Rate (eGFR) is calculated using the 2020 CKD-EPI creatinine equation. This equation utilizes serum creatinine, sex, and age as parameters. The creatinine assay has traceable calibration to isotope dilution- mass spectrometry. Refer to KDIGO guidelines for clinical interpretation. In patients with unstable renal function, e.g. those with acute kidney injury, the eGFR may not accurately reflect actual GFR.Performed By: #### 06175-8, 30807-8, 2777- ####[facility] LABIA [id number] VILLE [id number] [place] AMERICAGlucose [Mass/Vol]112 mg/dLHigh 74-99[facility] on above:Order Comment: Specimen Type: BLOOD SPECIMENOrdering Facility: [facility] Address:[address] [place], [place] [id number] Comment: The [place] Diabetes Association (ADA) provides guidance for cutoff values for fasting glucose and random glucose. The ADA defines fasting as no caloric intake for at least 8 hours. F asting plasma glucose results between 100 to 125 mg/dL indicate increased risk for diabetes (prediabetes).Fasting plasma glucose results greater than or equal to 126 mg/dL meet the criteria for diagnosis of diabetes. In the absence of unequivocal hyperglycemia, results should be confirmed by repeattesting. In a patient with classic symptoms of hyperglycemia or hyperglycemic crisis, random plasmaglucose results greater than or equal to 200 mg/dL meet the criteria for diagnosis of diabetes.Reference: Standards of Medical Care in Diabetes 2016, [place] [employer]. Diabetes Care. 2016.39(Suppl 1).Performed By: #### 93108-0, 41601-2, 2777- ####[facility] LABCLIA [id number] [address] [place] Potassium [Moles/Vol]5.4 mmol/LHigh3.7-5.1CGlenbeigh Hospital on above:Order Comment: Specimen Type: BLOOD SPECIMENOrdering Facility: [facility] Address:[address] [place], [place] [address]Performed By: #### 53336-3, 94510-4, 2776- ####[facility] LABIA [id number] [address] [place] Sodium [Moles/Vol]140 mmol/LTbwnrm861-675CmknxbrmtSouthwest General Health Center on above:Order Comment: Specimen Type: BLOOD SPECIMENOrdering Facility: [facility] Address:[address] [place] [address]Performed By: #### 84097-9, 08255-0, 2776-10 ####[facility] [id number] [address] [place] Urea nitrogen [Mass/Vol]40 mg/dLHigh9-24[facility] on above:Order Comment: Specimen Type: BLOOD SPECIMENOrdering Facility: [facility] Address:[address] [place], [place] [address]Performed By: #### 95163-1, 50565-9, 2776-10 ####[facility] [id number] VILLE [id number] [place] CASE MANAGEMon 33-15-1165WJLM MANAGEMNormalWright-Patterson Medical Center panel Auto (Bld)on 87-35-4079Psaauhrgyvx distribution width (RBC) [Ratio]17.2 %High 11.5-15.0[facility] on above:Order Comment: Specimen Type: BLOOD SPECIMENOrdering Facility: [facility] Address:[address] [place] [address]Performed By: #### 43104-3 ####[facility] LABIA [id number] [place] [address] [place] WHITE HOSPITALHematocrit (Bld) [Volume fraction]36.2 %Low 39.0-51.0[facility] on above:Order Comment: Specimen Type: BLOOD SPECIMENOrdering Facility: [facility] Address:[address] [place] [address]Performed By: #### 73002-5 ####[facility] LABIA [id number] [address] STATES OF AMERICAHemoglobin (Bld) [Mass/Vol]12.0 g/dLLow13.0-17.0 [facility] on above:Order Comment: Specimen Type: BLOOD SPECIMENOrdering Facility: [facility] Address:[address] [place] [address]Performed By: #### 69652-4 ####[facility] LABIA [id number] [place] [address] [place] AMERICAMCH (RBC) [Entitic mass]28.4 ylWtiqyf95.0-34.0[facility] on above:Order Comment: Specimen Type: BLOOD SPECIMENOrdering Facility: [facility] Address:[address] [place] [address]Vmizswpod By: #### 69632-2 ####[facility]IA [id number] [place] [address] [place] MCHC (RBC) [Mass/Vol]33.1 g/vKUkutnj45.5-36.0[facility] on above:Order Comment: Specimen Type: BLOOD SPECIMENOrdering Facility: [facility] Address:[address] [place] [address] Performed By: #### 37051-8 ####[facility]IA [id number] [place] [address] [place] MCV (RBC) [Entitic vol]85.8 lMDenlur13.0-100.0[facility] on above:Order Comment: Specimen Type: BLOOD SPECIMENOrdering Facility: [facility] Address:[address] [place] [address] Performed By: #### 15169-3 ####[facility] [id number] [place] [address] [place] Nucleated RBC (Bld) [#/Vol]10*3/uLNormal<0.01[facility] on above:Order Comment: Specimen Type: BLOOD SPECIMENOrdering Facility: [facility] Address:[address] [place] [address] Performed By: #### 82475-3 ####[facility] [id number] [address] STATES OF [facility] Platelet mean volume (Bld) [Entitic vol]13.7 fLHigh9.0-12.7CGlenbeigh Hospital on above:Order Comment: Specimen Type: BLOOD SPECIMENOrdering Facility: [facility] Address:[address] [place] [address]Performed By: #### 86874-1 ####[facility] [id number] [address] [place] Platelets (Bld) [#/Vol]92 10*3/yKCai604-920KymrzglvnSouthwest General Health Center on above:Order Comment: Specimen Type: BLOOD SPECIMENOrdering Facility: [facility] Address:[address] [place] [address]Result Comment: Results checked and verified.No clot detected.Performed By: #### 55807- 2 ####[facility] [id number] [address] WHITE HOSPITALRBC (Bld) [#/Vol]4.22 10*6/uL Normal4.20-6.00[facility] on above:Order Comment: Specimen Type: BLOOD SPECIMENOrdering Facility: [facility] Address:[address] [place], [place] [address]Performed By: #### 17328-1 ####[facility] LABCLIA [id number] [place] [address] [place] WHITE HOSPITALWBC (Bld) [#/Vol]14.13 10*3/uL High3.70-11.00[facility] on above:Order Comment: Specimen Type: BLOOD SPECIMENOrdering Facility: [facility] Address:[address] [place], [place] [address]Performed By: #### 15307-9 ####[facility]IA [id number] [place] [address] [place] AMERICACONSULT PROGon 00-00-2854QPXLTIE PROGNormal [facility] Valley HospitalGas and Carbon monoxide panel (BldV)on 38-09-6746CZIH DEFICIT, VENOUS-5 mmol/DSyj-1-8PeklwktgySouthwest General Health Center on above:Order Comment: Specimen Type: VENOUS BLOOD SPECIMENOrdering Facility: [facility] Address: [address] [place], [place] [address]Performed By: #### 86330-4 ####[facility] LABIA [id number] [place] [address] [place] AMERICABody lpvsaoblyim08.6 [degF]NormalSouthwest General Health Center on above:Order Comment: Specimen Type: VENOUS BLOOD SPECIMENOrdering Facility: [facility] Ad dress: [address] [place] [address]Performed By: #### 94657-1 ####[facility]IA [id number] [place] [address] [place] AMERICACalcium.ionized (Bld) [Mass/Vol] 1.20 mmol/LNormal1.08-1.30[facility] on above:Order Comment: Specimen Type: VENOUS BLOOD SPECIMENOrdering Facility: [facility] Address: [address] [place], [place] [address]Performed By: #### 29475-8 ####[facility]IA [id number] [place] [address] [place] AMERICACalcium.ionized adjusted to pH 7.4 (BldA) [Moles/Vol]1.17 mmol/LNormal1.08-1.30[facility] on above:Order Comment: Specimen Type: VENOUS BLOOD SPECIMENOrdering Facility: [facility] Address: [address] [place], [place] [address]Performed By: #### 92262-9 ####[facility] LABIA [id number] [address] OF WHITE HOSPITALCarboxyhemoglobin (BldV) [Mass fraction]0.1 %Normal0.0-2.0 [facility] on above:Order Comment: Specimen Type: VENOUS BLOOD SPECIMENOrdering Facility: [facility] Address: [address] [place], [place] [address]Result Comment: Carboxyhemoglobin Reference Range for Smokers: 2.0-8.0%Performed By: #### 99576-6 ####[facility]IA [id number] [place] [address] [place] AMERICACO2 (BldV) [Partial pressure]35 mm[Hg]Nnd30-65BfwgxscukSouthwest General Health Center on above:Order Comment: Specimen Type: VENOUS BLOOD SPECIMENOrdering Facility: [facility] Address: [address] [place], [place] [address]Performed By: #### 63862-1 ####[facility] [id number] [place] [address] [place] AMERICACO2 [Moles/Vol]20 mmol/GIbk21-45GiukbbysiBlanchard Valley Health System [facility] Comment on above:Order Comment: Specimen Type: VENOUS BLOOD SPECIMENOrdering Facility: [facility] Address: [address] [place], [place] [address]Performed By: #### 09135-1 ####[facility] LABCLIA [id number] [address] [address] [place] Glucose [Mass/Vol]159 mg/xRLlto08-537ElfowjmglBlanchard Valley Health System Blanchard Valley HospitalComascension borgess hospital on above: Order Comment: Specimen Type: VENOUS BLOOD SPECIMENOrdering Facility: [facility] Address: [address] [place], [place] [address]Performed By: #### 95497-8 ####[facility]IA [id number] [place] [address] [place] AMERICAHCO3 (Bld) [Moles/Vol] 19 mmol/UVli37-46YavkcgutzBlanchard Valley Health System [facility]anchard Valley HospitalComment on above:Order Comment: Specimen Type: VENOUS BLOOD SPECIMENOrdering Facility: [facility] Address: [address] [place], [place] [address]Performed By: #### 71614-0 ####[facility]IA [id number] [place] [address] [place] AMERICAHematocrit (Bld) [Volume fraction]36.7 %Low39.0-51.0[facility] Blanchard Valley HospitalComment on above: Order Comment: Specimen Type: VENOUS BLOOD SPECIMENOrdering Facility: [facility] Address: [address] [place] [address]Performed By: #### 99178-2 ####[facility] LABCLIA [id number] [place] [address] [place] AMERICAHemoglobin (Bld) [Mass/Vol]11.9 g/dLLow13.0-17.0[facility] on above:Order Comment: Specimen Type: VENOUS BLOOD SPECIMENOrdering Facility: [facility] Address: [address] [place] [address]Performed By: #### 11047-8 ####[facility] LABCLIA [id number] [place] [address] [place] AMERICALactate [Moles/Vol]2.0 mmol/LNormal0.5-2.2CGlenbeigh Hospital on above:Order Comment: Specimen Type: VENOUS BLOOD SPECIMENOrdering Facility: [facility] Address: [address] [place] [address]Dttcbbhpt By: #### 99838-4 ####[facility] [id number] [place] [address] [place] AMERICALITERS5 Liters/min NormalSouthwest General Health Center on above:Order Comment: Specimen Type: VENOUS BLOOD SPECIMENOrdering Facility: [facility] Address: [address] [place], [place] [id number] By: #### 05299-3 ####[facility] LABIA [id number] [place] [address] [place] AMERICAMethemoglobin (Bld) [Mass fraction]1.7 %High0.0-1.5CGlenbeigh Hospital on above:Order Comment: Specimen Type: VENOUS BLOOD SPECIMENOrdering Facility: [facility] Address: [address] [place] [address]Lxzamkrah By: #### 75149-2 ####[facility] LABIA [id number] [place] [address] [place] AMERICAO2 THERAPYNC = Nasal CannulaNormalCGlenbeigh Hospital on above:Order Comment: Specimen Type: VENOUS BLOOD SPECIMENOrdering Facility: [facility] Ad dress: [address] [place], [place] [address]Vvyibkvll By: #### 08404-3 ####[facility] LABIA [id number] [place] [address] [place] AMERICAOxygen (BldV) [Partial pressure] 71 mm[Hg]Ibpl10-93IvlmpbcmoSouthwest General Health Center on above:Order Comment: Specimen Type: VENOUS BLOOD SPECIMENOrdering Facility: [facility] Address: [address] [place], [place] [address]Performed By: #### 97119-8 ####[facility] LABCLIA [id number] [place] [address] [place] AMERICAOxygen saturation in Venous blood94 %Pphm94-01RhcmfrlhjSouthwest General Health Center on above:Order Comment: Specimen Type: VENOUS BLOOD SPECIMENOrdering Facility: [facility] Address: [address] [place], [place] [address]Performed By: #### 03844-2 ####[facility] LABCLIA [id number] [address] OF AMERICAOxyhemoglobin (BldV) [Mass fraction]92 %Zmyn52-70RxzajwnsfSouthwest General Health Center on above:Order Comment: Specimen Type: VENOUS BLOOD SPECIMENOrdering Facility: [facility] Address: [address] [place], [place] [address]Performed By: #### 05188-7 ####[facility] LABCLIA [id number] [place] [address] [place] AMERICApH (BldV)7.36 [pH] Normal7.32-7.42[facility] on above:Order Comment: Specimen Type: VENOUS BLOOD SPECIMENOrdering Facility: [facility] Address: [address] [place], [place] [address]Performed By: #### 31277-9 ####[facility] LABCLIA [id number] [place] [address] [place] AMERICAPotassium [Moles/Vol] 4.3 mmol/LNormal3.5-5.0[facility] on above:Order Comment: Specimen Type: VENOUS BLOOD SPECIMENOrdering Facility: [facility] Address: [address] [place], [place] [address]Performed By: #### 63787-6 ####[facility] LABCLIA [id number] [place] [address] [place] AMERICASodium [Moles/Vol]137 mmol/QNjvbvv299-415IheicvsueSouthwest General Health Center on above:Order Comment: Specimen Type: VENOUS BLOOD SPECIMENOrdering Facility: [facility] Address: [address] [place], [place] [address]Performed By: #### 74758-6 ####[facility] LABCLIA [id number] [place] [address] [place] AMERICABASE DEFICIT, VENOUS-5 mmol/XRqv-3-6YfgtxwumjSouthwest General Health Center on above:Order Comment: Specimen Type: VENOUS BLOOD SPECIMENOrdering Facility: [facility] Ad dress: [address] [place] [address]Performed By: #### 57224-0 ####[facility] LABIA [id number] [place] [address] [place] AMERICABody ubvsgluvjxl55.6 [degF]Normal [facility] on above:Order Comment: Specimen Type: VENOUS BLOOD SPECIMENOrdering Facility: [facility] Address: [address] [place], [place] [address]Performed By: #### 93007-7 ####[facility] LABIA [id number] [place] [address] [place] AMERICACalcium.ionized (Bld) [Mass/Vol]1.21 mmol/LNormal 1.08-1.30[facility] on above:Order Comment: Specimen Type: VENOUS BLOOD SPECIMENOrdering Facility: [facility] Ad dress: [address] [place] [address]Performed By: #### 98156-6 ####[facility] LABIA [id number] [place] [address] [place] AMERICACalcium.ionized adjusted to pH 7.4 (BldA) [Moles/Vol]1.18 mmol/LNormal1.08-1.30[facility] Comment on above:Order Comment: Specimen Type: VENOUS BLOOD SPECIMENOrdering Facility: [facility] Address: [address]Performed By: #### 61472-9 ####[facility] LABCLIA [id number] [place] [address] [place] Carboxyhemoglobin (BldV) [Mass fraction]0.8 %Normal0.0-2.0[facility] on above:Order Comment: Specimen Type: VENOUS BLOOD SPECIMENOrdering Facility: [facility] Address: [address] [place], [place] [address]Result Comment: Carboxyhemoglobin Reference Range for Smokers: 2.0-8.0%Performed By: #### 94734-0 ####[facility] LABIA [id number] [place] [address] [place] AMERICACO2 (BldV) [Partial pressure]36 mm[Hg]Kjf52-21AvupveovtBlanchard Valley Health System [facility] Comment on above:Order Comment: Specimen Type: VENOUS BLOOD SPECIMENOrdering Facility: [facility] Address: [address] [place], [place] [address]Performed By: #### 26636-1 ####[facility] LABIA [id number] [place] [address] [place] CO2 [Moles/Vol]21 mmol/HQou58-43UjhpwkbdbSouthwest General Health Center on above:Order Comment: Specimen Type: VENOUS BLOOD SPECIMENOrdering Facility: [facility] Address: [address] [place], [place] [address]Performed By: #### 22111-7 ####[facility] LABIA [id number] [place] [address] [place] SDHVOOUPKV066 %Normal [facility] on above:Order Comment: Specimen Type: VENOUS BLOOD SPECIMENOrdering Facility: [facility] Address: [address] [place] [address]Performed By: #### 38183-9 ####[facility] LABCLIA [id number] [place] [address] [place] AMERICAGlucose [Mass/Vol]129 mg/cMYkji51-351YrfftzupsSouthwest General Health Center on above:Order Comment: Specimen Type: VENOUS BLOOD SPECIMENOrdering Facility: [facility] Address: [address] [place], [place] [address]Performed By: #### 53637-5 ####[facility] LABIA [id number] [place] [address] [place] AMERICAHCO3 (Bld) [Moles/Vol]20 mmol/SWjc19-52KbipzgjddSouthwest General Health Center on above:Order Comment: Specimen Type: VENOUS BLOOD SPECIMENOrdering Facility: [facility] Address: [address] [place], [place] [address]Performed By: #### 75785-7 ####[facility] LABIA [id number] [place] [address] [place] AMERICAHematocrit (Bld) [Volume fraction]37.1 %Low39.0-51.0[facility] on above:Order Comment: Specimen Type: VENOUS BLOOD SPECIMENOrdering Facility: [facility] Address: [address] [place] [address]Performed By: #### 67485-4 ####[facility] LABIA [id number] [place] [address] [place] AMERICAHemoglobin (Bld) [Mass/Vol]12.0 g/dLLow13.0-17.0[facility] on above:Order Comment: Specimen Type: VENOUS BLOOD SPECIMENOrdering Facility: [facility] Address: [address] [place], [place] [address]Performed By: #### 53416-2 ####[facility] LABIA [id number] [place] [address] [place] WHITE HOSPITALLactate [Moles/Vol]1.8 mmol/LNormal0.5-2.2CGlenbeigh Hospital on above:Order Comment: Specimen Type: VENOUS BLOOD SPECIMENOrdering Facility: [facility] Address: [address] [place], [place] [address]Performed By: #### 25215-5 ####[facility] LABCLIA [id number] [place] [address] [place] AMERICAMethemoglobin (Bld) [Mass fraction]1.5 %Normal0.0-1.5CGlenbeigh Hospital on above:Order Comment: Specimen Type: VENOUS BLOOD SPECIMENOrdering Facility: [facility] Address: [address] [place], [place] [address]Performed By: #### 77302-9 ####[facility] LABCLIA [id number] [place] [address] [place] AMERICAO2 THERAPYHi-Flow Nasal Cannula-HeatedNormalCGlenbeigh Hospital on above:Order Comment: Specimen Type: VENOUS BLOOD SPECIMENOrdering Facility: [facility] Address: [address] [place] [address]Performed By: #### 02812-7 ####[facility] LABIA [id number] [place] [address] [place] AMERICAOxygen (BldV) [Partial pressure]62 mm[Hg]Pdqe27-06BicvcqkxySouthwest General Health Center on above:Order Comment: Specimen Type: VENOUS BLOOD SPECIMENOrdering Facility: [facility] Address: [address] [place], [place] [address]Performed By: #### 06754-8 ####[facility] LABCLIA [id number] [place] [address] [place] AMERICAOxygen saturation in Venous blood90 %Ysuz15-64IngxcxiuwSouthwest General Health Center on above:Order Comment: Specimen Type: VENOUS BLOOD SPECIMENOrdering Facility: [facility] Address: [address] [place] [address]Voegykzda By: #### 72709-4 ####[facility] LABIA [id number] [address]Oxyhemoglobin (BldV) [Mass fraction]88 %Oovc76-54GiiueivneSouthwest General Health Center on above:Order Comment: Specimen Type: VENOUS BLOOD SPECIMENOrdering Facility: [facility] Address: [address] [place], [place] [address]Performed By: #### 92573-9 ####[facility] LABIA [id number] [place] [address] [place] AMERICApH (BldV)7.35 [pH]Normal7.32-7.42[facility] Comment on above:Order Comment: Specimen Type: VENOUS BLOOD SPECIMENOrdering Facility: [facility] Address: [address] [place] [address]Performed By: #### 13782-8 ####[facility] [id number] [place] [address] [place] Potassium [Moles/Vol]4.7 mmol/LNormal3.5-5.0[facility] on above:Order Comment: Specimen Type: VENOUS BLOOD SPECIMENOrdering Facility: [facility] Address: [address] [place] [address] Performed By: #### 40242-1 ####[facility] LABIA [id number] [place] [address] [place] Sodium [Moles/Vol]139 mmol/TXuxqfw352-660UpsreudbySouthwest General Health Center on above:Order Comment: Specimen Type: VENOUS BLOOD SPECIMENOrdering Facility: [facility] Address: [address] [place] [address] Performed By: #### 08560-9 ####[facility] LABIA [id number] [address]HFMXX, [place] [address] [place] Magnesium SerPl-mCncon 70-05-7195Dljncnjwx [Mass/Vol]2.2 mg/dLNormal1.7-2.3 [facility] on above:Order Comment: Specimen Type: BLOOD SPECIMENOrdering Facility: [facility] Address:[address] [place], [place] [address]Performed By: #### 91343-6, 25043-1, 2777-1 ####[facility] LABCLIA [id number] [address] [place] AMERICAPhosphate SerPl-mCncon 11-27-2022 Phosphate [Mass/Vol]3.9 mg/dLNormal2.7-4.8CGlenbeigh Hospital on above:Order Comment: Specimen Type: BLOOD SPECIMENOrdering Facility: [facility] Address:[address] [place], [place] [address]Performed By: #### 81795-9, 24774-7, 2777-1 ####[facility] LABCLIA [id number] [address] [place] THERAPY NTon 07-21-9483EKMGDYR NTNormalCleveland Formerly Memorial Hospital Of Wake CountyXR CHEST 1V FRONTAL PORTon 76-39-5548FJ CHEST 1V FRONTAL PORTNormalCSelect Medical Specialty Hospital - Southeast OhioBacteria Bld Culton 37-47-6875Tqlyulgx identified Cx Nom (Bld)Abnormal [facility] HospitalComment on above:Performed By: #### 600-7 ####[facility] LABCLIA [id number] [place] [address] [place] AMERICABacteria identified Cx Nom (Bld) ORGANISM ID: 1 Klebsiella (enterobacter) aerogenes Refer to specimen collected on 11/26/2022 1147 ([id number]) GRAM STAIN: Gram negative bacilliAbnormACMC Healthcare System on above: Performed By: #### 600-7 ####[facility] LABCLIA [id number] [place] [address] [place] AMERICACASE MANAGEMon 87-63-4722BTVO MANAGEMNormalBlanchard Valley Health System [facility]ard Valley HospitalCB panel Auto (Bld)on 88-86-9271Xiarrbozfcz distribution width (RBC) [Ratio]16.9 %High11.5-15.0 [facility] on above:Order Comment: Specimen Type: BLOOD SPECIMENOrdering Facility: [facility] Address:[address] [place], [place] [address]Performed By: #### 90413-7 ####[facility] LABIA [id number] [address] STATES OF WHITE HOSPITALHematocrit (Bld) [Volume fraction]34.9 %Low39.0-51.0[facility] on above:Order Comment: Specimen Type: BLOOD SPECIMENOrdering Facility: [facility] Address:[address] [place], [place] [address]Performed By: #### 19400-3 ####[facility] LABIA [id number] [address] STATES OF WHITE HOSPITALHemoglobin (Bld) [Mass/Vol]11.1 g/dLLow13.0-17.0[facility] on above:Order Comment: Specimen Type: BLOOD SPECIMENOrdering Facility: [facility] Address:[address] [place], [place] [address]Performed By: #### 86185-0 ####[facility] LABIA [id number] [place] [address] [place] AMERICAMCH (RBC) [Entitic mass]28.2 bfQaqyhg90.0-34.0[facility] on above:Order Comment: Specimen Type: BLOOD SPECIMENOrdering Facility: [facility] Address:[address] [place], [place] [address]Performed By: #### 28468-6 ####[facility] LABCLIA [id number] [place] [address] [place] MCHC (RBC) [Mass/Vol]31.8 g/sMOpeldf64.5-36.0[facility] on above:Order Comment: Specimen Type: BLOOD SPECIMENOrdering Facility: [facility] Address:[address] [place] [address] Performed By: #### 23174-3 ####[facility] LABIA [id number] [place] [address] [place] MCV (RBC) [Entitic vol]88.8 gMYdpmzw45.0-100.0[facility] on above:Order Comment: Specimen Type: BLOOD SPECIMENOrdering Facility: [facility] Address:[address] [place], [place] [address] Performed By: #### 80984-8 ####[facility] [id number] [place] [address] [place] Nucleated RBC (Bld) [#/Vol]10*3/uLNormal<0.01[facility] on above:Order Comment: Specimen Type: BLOOD SPECIMENOrdering Facility: [facility] Address:[address] [place] [address] Performed By: #### 00538-7 ####[facility] [id number] [place] [address] [place] Platelet mean volume (Bld) [Entitic vol]12.2 fLNormal9.0-12.7CGlenbeigh Hospital on above:Order Comment: Specimen Type: BLOOD SPECIMENOrdering Facility: [facility] Address:[address] [place] [address]Performed By: #### 82171-3 ####[facility] LABIA [id number] [place] [address] [place] Platelets (Bld) [#/Vol]88 10*3/eLYwo253-284HiltkoktnSouthwest General Health Center on above:Order Comment: Specimen Type: BLOOD SPECIMENOrdering Facility: [facility] Address:[address] [place], [place] [address]Result Comment: Results checked and verified.No clot detected.Performed By: #### 05983- 2 ####[facility] LABCLIA [id number] [address] AMERICARBC (Bld) [#/Vol]3.93 10*6/uLLow 4.20-6.00[facility] on above:Order Comment: Specimen Type: BLOOD SPECIMENOrdering Facility: [facility] Address:[address] [place], [place] [address]Performed By: #### 16908-1 ####[facility] LABCLIA [id number] [address] OF WHITE HOSPITALW (Bld) [#/Vol]4.71 10*3/uLNormal3.70-11.00 [facility] on above:Order Comment: Specimen Type: BLOOD SPECIMENOrdering Facility: [facility] Address:[address] [place], [place] [address]Performed By: #### 41292-4 ####[facility] LABCLIA [id number] [address] STATES OF AMERICACONSULT PROGon 63-12-6123UJIEWRG PROGNormalBlanchard Valley Health System Blanchard Valley HospitalCR SerPl-mCncon 80-30-2106OIK [Mass/Vol]17.0 mg/dLHigh<0.9CGlenbeigh Hospital on above:Order Comment: Specimen Type: BLOOD SPECIMENOrdering Facility: [facility] Address:[address] [place], [place] [address]Performed By: #### 00575-5, 44944-5, 1987- ####[facility] LABCLIA [id number] AV[address]UED[address] T07YKCGMMBPB, [place] [address] [place] AMERICAComprehensive metabolic 2000 panelon 72-85-9721Lupbrey [Mass/Vol]2.8 g/dLLow3.9-4.9CSelect Medical Specialty Hospital - [facility] [place] Comment on above:Order Comment: Specimen Type: BLOOD SPECIMENOrdering Facility: [facility] Address:[address] [place], [place] [address] Performed By: #### 86288-5, 70852-0, 1988-02 ####[facility] LABCLIA [id number] [address] [place] AMERICAALP [Catalytic activity/Vol]95 U/CXkukrn75-093WujsfhnvaBlanchard Valley Health System [facility] Comment on above:Order Comment: Specimen Type: BLOOD SPECIMENOrdering Facility: [facility] Address:[address] [place] [address] Performed By: #### 14013-3, 95941-7, 1988-02 ####[facility] LABCLIA [id number] STATES OF AMERICAALT [Catalytic activity/Vol]U/EHvw44-67NrojyyxekBlanchard Valley Health System [facility] Valley HospitalComment on above:Order Comment: Specimen Type: BLOOD SPECIMENOrdering Facility: [facility] Address:[address] [place] [address] Result Comment: Result rechecked.Performed By: #### 53187-1, 50356-5, 1988-02 ####[facility] LABCLIA [id number] VILLE [address] [place] AMERICAAnion gap [Moles/Vol]10 mmol/L Normal9-18[facility] Valley HospitalComment on above:Order Comment: Specimen Type: BLOOD SPECIMENOrdering Facility: [facility] Address:[address] [place] [address]Performed By: #### 23890-9, 03981-9, 1988-02 ####[facility] LABCLIA [id number] [place] [id number] [place] AMERICAAST [Catalytic activity/Vol]10 U/KBuh87-29JncxcpitfSouthwest General Health Center on above:Order Comment: Specimen Type: BLOOD SPECIMENOrdering Facility: [facility] Address:[address] [place], [place] [address]Performed By: #### 96499-1, 12291-0, 1988-02 ####[facility] LABCLIA [id number] [address] [place] AMERICABilirubin [Mass/Vol]0.4 mg/dL Normal0.2-1.3CGlenbeigh Hospital on above:Order Comment: Specimen Type: BLOOD SPECIMENOrdering Facility: [facility] Address:[address] [place], [place] [address]Performed By: #### 81358-6, 30133-5, 1988-02 ####[facility] LABCLIA [id number] [address] [place] AMERICACalcium [Mass/Vol]8.1 mg/dLLow 8.5-10.2CGlenbeigh Hospital on above:Order Comment: Specimen Type: BLOOD SPECIMENOrdering Facility: [facility] Address:[address] [place], [place] [address]Performed By: #### 71710-3, 34418-7, 1988-02 ####[facility] LABCLIA [id number] [place] [address] [place] AMERICAChloride [Moles/Vol]108 mmol/L Qkjk73-239FodrybtlcSouthwest General Health Center on above:Order Comment: Specimen Type: BLOOD SPECIMENOrdering Facility: [facility] Address:[address] [place], [place] [address]Performed By: #### 42081-4, 17261-0, 1988-02 ####[facility] LABCLIA [id number] [place] [id number] [place] AMERICACO2 [Moles/Vol]20 mmol/EXyh37-75 [facility] on above:Order Comment: Specimen Type: BLOOD SPECIMENOrdering Facility: [facility] Address:[address] [place] [address]Hfjonccun By: #### 66599-9, 64641-3, 1988-02 ####[facility] LABIA [id number] [address] [place] AMERICACreatinine [Mass/Vol]1.92 mg/dL High0.73-1.22[facility] on above:Order Comment: Specimen Type: BLOOD SPECIMENOrdering Facility: [facility] Address:[address] [place] [address]Rjemlzzdx By: #### 21690-8, 96312-1, 1988-02 ####[facility] LABIA [id number] VILLE [id number] [place] AMERICAESTIMATED GLOMERULAR FILTRATION RATE38 mL/min/1.73m???Low>=60[facility] on above:Order Comment: Specimen Type: BLOOD SPECIMENOrdering Facility: [facility] Address:[address] [place], [place] [address]Result Comment: Estimated Glomerular Filtration Rate (eGFR) is calculated using the 2020 CKD-EPI creatinine equation. This equation utilizes serum creatinine, sex, and age as parameters. The creatinine assay has traceable calibration to isotope dilution- mass spectrometry. Refer to KDIGO guidelines for clinical interpretation. In patients with unstable renal function, e.g. those with acute kidney injury, the eGFR may not accurately reflect actual GFR.Performed By: #### 20231-2, 44368-0, 1988-02 ####[facility] LABVERMONT [facility] [id number] VILLE [id number] [place] AMERICAGlucose [Mass/Vol]88 mg/dLNormal 74-99[facility] on above:Order Comment: Specimen Type: BLOOD SPECIMENOrdering Facility: [facility] Address:[address] [place] [address]Ykikxk Comment: The [place] [employer] (ADA) provides guidance for cutoff values for fasting glucose and random glucose. The ADA defines fasting as no caloric intake for at least 8 hours. F asting plasma glucose results between 100 to 125 mg/dL indicate increased risk for diabetes (prediabetes).Fasting plasma glucose results greater than or equal to 126 mg/dL meet the criteria for diagnosis of diabetes. In the absence of unequivocal hyperglycemia, results should be confirmed by repeattesting. In a patient with classic symptoms of hyperglycemia or hyperglycemic crisis, random plasmaglucose results greater than or equal to 200 mg/dL meet the criteria for diagnosis of diabetes.Reference: Standards of Medical Care in Diabetes 2016, [place] [employer]. Diabetes Care. 2016.39(Suppl 1).Performed By: #### 46518-1, 21691-1, 1988-02 ####[facility] LABIA [id number] [address] [place] Potassium [Moles/Vol]4.4 mmol/LNormal3.7-5.1CGlenbeigh Hospital on above:Order Comment: Specimen Type: BLOOD SPECIMENOrdering Facility: [facility] Address:[address] [place], [place] [address]Performed By: #### 33517-4, 94402-1, 1988-02 ####[facility] [id number] [address] [place] Protein [Mass/Vol]5.2 g/dLLow6.3-8.0[facility] on above: Order Comment: Specimen Type: BLOOD SPECIMENOrdering Facility: [facility] Address:[address] [place], [place] [address]Performed By: #### 85829-8, 89600-5, 1988-02 ####[facility] [id number] [place] [address] [place] AMERICASodium [Moles/Vol]138 mmol/SFsscid317-285IknfecksnSouthwest General Health Center on above: Order Comment: Specimen Type: BLOOD SPECIMENOrdering Facility: [facility] Address:[address] [place] [address]Performed By: #### 26159-0, 64375-2, 1988-02 ####[facility] [id number] [place] [id number] [place] AMERICAUrea nitrogen [Mass/Vol]44 mg/dLHigh9-24[facility] on above:Order Comment: Specimen Type: BLOOD SPECIMENOrdering Facility: [facility] Address:[place] [address]Dgfhfnwox By: #### 72905-2, 60731-1, 1988-02 ####[facility] LABIA [id number] [place] [id number] [place] AMERICAECG COMPLETEon 11-68-8835JBY COMPLETENormalCSelect Medical Specialty Hospital - Southeast OhioHISTORY PHYSICALon 60-44-2779GSSTHNG PHYSICALNormalCSelect Medical Specialty Hospital - Southeast OhioMEDICAL EMERon 53-22-6093JYCLJPQ EMERNormOhioHealth Pickerington Methodist HospitalNURSING PROGon 11-26-2022 NURSING PROGNormalBlanchard Valley Health System Blanchard Valley HospitalNUTRITIONon 26-76-6180HMRUOXYTR NormalBlanchard Valley Health System Blanchard Valley HospitalPT panel Coag (PPP)on 57-84-4923RGX Coag (PPP) [Relative time]1.2 {INR}Normal0.9-1.3CGlenbeigh Hospital on above: Order Comment: Specimen Type: BLOOD SPECIMENOrdering Facility: [facility] Address:[place] [id number] Comment: Vitamin K Antagonist (VKA) Therapeutic Range: INR 2 to 3 (Target INR of 2.5)Note: For patients treated with VKA drugs, such as warfarin, the [employer] 2012 Guideline recommends a therapeutic INR range of 2 to 3 (target INR of 2.5). This recommendation includes high-risk patients with antiphospholipid syndrome with previous arterial or venous thromboembolism, current-generation mechanical or bioprosthetic aortic heart valve replacement.Note: Patients with mechanical aortic valve replacement and additional risk factors for thromboembolic events (atrialfibrillation, previous thromboembolism, LV dysfunction, hypercoagulable conditions) or an older gene ration mechanical AVR (i.e., ball in-Cage) or any mechanical MVR should have a INR therapeutic range of 2.5 to 3.5 (target INR of 3).Shreyastt GH, et al. Chest 2012, 141:7S-47SNishimura RA, et al. [facility] 2017, 70: 252-289Performed By: #### 60066-5 ####[facility] LABCLIA [id number] [address] STATES OF AMERICAPT Coag (PPP) [Time] 12.2 sNormal9.7-13.0CleUniversity Hospitals Geneva Medical Centerment on above:Order Comment: Specimen Type: BLOOD SPECIMENOrdering Facility: [facility] Address:[address] [place], [place] [address]Performed By: #### 89798-2 ####[facility] LABIA [id number] [address]ETProcalcitonin SerPl-mCncon 65-50-3281Wgqgtbpagtnkg [Mass/Vol]11.48 ng/mLHigh<0.09[facility] Comment on above:Order Comment: Specimen Type: BLOOD SPECIMENOrdering Facility: [facility] Address:[address] [place] [address] Result Comment: For a guided interpretation of test results, please visit the Change in Procalcitonin Calculator, [email or web address].Performed By: #### 18788-4, 50447-4, 1987- ####[facility] LABCLIA [id number] [address] [facility] SEPSIS LACTATEon 54-40-8492Nmpyorr [Moles/Vol]2.4 mmol/LHigh<=2.0[facility] on above:Order Comment: Specimen Type: BLOOD SPECIMENOrdering Facility: [facility] Address:[address] [place], [place] [address]Performed By: #### SLACT ####[facility] LABCLIA [id number] [place] [address] [place] OF AMERICASTAPH AUREUS PCRon 11-26-2022S. aureus and MRSA panel KELLIE+probe (Nose)NormalNegativeSouthwest General Health Center on above:Order Comment: Specimen Type: SWAB OF INTERNAL NOSEOrdering Facility: [facility] Address: [address] [place], [place] [address]Result Comment: Negative for Staphylococcus aureus by PCR.Negative for MRSA by PCRPerformed By: #### SAPCR ####[facility] LABCLIA [id number] [place] [address] [place] AMERICATHERAPY NTon 64-97-5429DBLIYJK NTNormalCSelect Medical Specialty Hospital - Southeast OhioTHERAPY NTNormalCSelect Medical Specialty Hospital [facility] Southeast OhioUS KIDNEY/BLADDERon 87-91-9076LR KIDNEY/BLADDERNormOhioHealth Pickerington Methodist HospitalUrinalysis complete pnl Uron 51-30-9904Kkvflhyviq complete panel (U)NormalSouthwest General Health Center on above:Order Comment: Specimen Type: URINE SPECIMENOrdering Facility: [facility] Address:[address] [place], [place] [address]Performed By: #### 78111-1 ####[facility] LABCLIA [id number] [place] [address] [place] AMERICAXR CHEST 1V FRONTAL PORTon 33-46-8587CY CHEST 1V FRONTAL PORTSamaritan HospitalCASE MGT INIT ASSESon 04-86-4653XFFQ MGT INIT [facility] HospitalCBC panel Auto (Bld)on 11-25-2022 Erythrocyte distribution width (RBC) [Ratio]17.2 %High11.5-15.0[facility] on above:Order Comment: Specimen Type: BLOOD SPECIMENOrdering Facility: [facility] Address:[address] [place], [place] [address]Performed By: #### 86386-7 ####[facility] LABCLIA [id number] [place] [address] [place] Hematocrit (Bld) [Volume fraction]36.9 %Low39.0-51.0[facility] Comment on above:Order Comment: Specimen Type: BLOOD SPECIMENOrdering Facility: [facility] Address:[address] [place] [address] Performed By: #### 36708-5 ####[facility] LABIA [id number] [place] [address] [place] Hemoglobin (Bld) [Mass/Vol]11.6 g/dLLow13.0-17.0[facility] Comment on above:Order Comment: Specimen Type: BLOOD SPECIMENOrdering Facility: [facility] Address:[address] [place], [place] [address] Performed By: #### 38112-5 ####[facility] LABIA [id number] [address] [place] MCH (RBC) [Entitic mass]27.8 ukDadstx03.0-34.0[facility] Valley HospitalComment on above:Order Comment: Specimen Type: BLOOD SPECIMENOrdering Facility: [facility] Address:[address] [place], [place] [address] Performed By: #### 35743-4 ####[facility] LABIA [id number] [place] [address] [place] MCHC (RBC) [Mass/Vol]31.4 g/xHTrolwc12.5-36.0[facility] Valley HospitalComment on above:Order Comment: Specimen Type: BLOOD SPECIMENOrdering Facility: [facility] Address:[address] [place], [place] [address] Performed By: #### 74888-9 ####[facility] LABIA [id number] [place] [address] [place] MCV (RBC) [Entitic vol]88.3 iXLzfidb61.0-100.0[facility] on above:Order Comment: Specimen Type: BLOOD SPECIMENOrdering Facility: [facility] Address:[address] [place] [address] Performed By: #### 05941-9 ####[facility] LABIA [id number] [place] [address] [place] Nucleated RBC (Bld) [#/Vol]10*3/uLNormal<0.01[facility] on above:Order Comment: Specimen Type: BLOOD SPECIMENOrdering Facility: [facility] Address:[address] [place], [place] [address] Performed By: #### 35852-1 ####[facility] [id number] [place] [address] [place] Platelet mean volume (Bld) [Entitic vol]12.0 fLNormal9.0-12.7CGlenbeigh Hospital on above:Order Comment: Specimen Type: BLOOD SPECIMENOrdering Facility: [facility] Address:[address] [place], [place] [address]Performed By: #### 78929-1 ####[facility] [id number] [place] [address] [place] Platelets (Bld) [#/Vol]96 10*3/xLShd372-945LstkbppjfSouthwest General Health Center on above:Order Comment: Specimen Type: BLOOD SPECIMENOrdering Facility: [facility] Address:[address] [place] [address]Result Comment: No clot detected.Performed By: #### 87666-6 ####[facility] LABIA [id number] [place] [address] [place] AMERICARBC (Bld) [#/Vol]4.18 10*6/uLLow4.20-6.00[facility] on above:Order Comment: Specimen Type: BLOOD SPECIMENOrdering Facility: [facility] Address:[address] [place] [address]Performed By: #### 95827-4 ####[facility] LABIA [id number] [place] [address] [place] WBC (Bld) [#/Vol]5.31 10*3/uLNormal3.70-11.00[facility] on above:Order Comment: Specimen Type: BLOOD SPECIMENOrdering Facility: [facility] Address:[address] [place], [place] [address] Performed By: #### 33255-9 ####[facility] LABIA [id number] [place] [address] [place] CONSULT PROGon 42-20-4437ESVHWGA PROGNormalBlanchard Valley Health System [facility] Valley HospitalCONSULT PROGNormalBlanchard Valley Health System [facility] HospitalComprehensive metabolic 2000 panelon 10-94-2131Vgviyfv [Mass/Vol]3.1 g/dLLow3.9-4.9CGlenbeigh Hospital on above:Order Comment: Specimen Type: BLOOD SPECIMENOrdering Facility: [facility] Address:[address] [place], [place] [address] Performed By: #### 57757-6 ####[facility] LABIA [id number] [place] [address] [place] ALP [Catalytic activity/Vol]98 U/RPmtyrt49-059LgmubeoljSouthwest General Health Center on above:Order Comment: Specimen Type: BLOOD SPECIMENOrdering Facility: [facility] Address:[address] [place] [address] Performed By: #### 03191-0 ####[facility] LABIA [id number] [place] [address] [place] ALT [Catalytic activity/Vol]U/RNfl57-52YoexatdthSouthwest General Health Center on above:Order Comment: Specimen Type: BLOOD SPECIMENOrdering Facility: [facility] Address:[address] [place] [address]Result Comment: Result rechecked.Performed By: #### 24456-9 ####[facility] LABCLIA [id number] [place] [address] [place] AMERICAAnion gap [Moles/Vol]9 mmol/LNormal9-18[facility] on above:Order Comment: Specimen Type: BLOOD SPECIMENOrdering Facility: [facility] Address:[address] [place], [place] [address]Performed By: #### 15043-2 ####[facility] LABCLIA [id number] [place] [address] [place] AST [Catalytic activity/Vol]8 U/NIyh94-11UlcllrkykSouthwest General Health Center on above:Order Comment: Specimen Type: BLOOD SPECIMENOrdering Facility: [facility] Address:[address] [place], [place] [address]Performed By: #### 48427-8 ####[facility] LABIA [id number] [place] [address] [place] AMERICABilirubin [Mass/Vol] 0.4 mg/dLNormal0.2-1.3CGlenbeigh Hospital on above:Order Comment: Specimen Type: BLOOD SPECIMENOrdering Facility: [facility] Address:[address] [place], [place] [address]Performed By: #### 46469-1 ####[facility] LABIA [id number] [place] [address] [place] AMERICACalcium [Mass/Vol]8.4 mg/dLLow 8.5-10.2CGlenbeigh Hospital on above:Order Comment: Specimen Type: BLOOD SPECIMENOrdering Facility: [facility] Address:[address] [place], [place] [address]Performed By: #### 07880-5 ####[facility] LABCLIA [id number] [place] [address] [place] AMERICAChloride [Moles/Vol]109 mmol/HGetj79-605AhorcucypSouthwest General Health Center on above:Order Comment: Specimen Type: BLOOD SPECIMENOrdering Facility: [facility] Address:[address] [place], [place] [address]Performed By: #### 81896-1 ####[facility] LABIA [id number] [address] STATES OF WHITE HOSPITALCO2 [Moles/Vol]22 mmol/SUmetad64-32AnlptqgzmBlanchard Valley Health System [facility] Comment on above:Order Comment: Specimen Type: BLOOD SPECIMENOrdering Facility: [facility] Address:[address] [place] [address] Performed By: #### 03211-5 ####[facility] [id number] [address] [facility] Creatinine [Mass/Vol]1.18 mg/dLNormal0.73-1.22[facility] on above:Order Comment: Specimen Type: BLOOD SPECIMENOrdering Facility: [facility] Address:[address] [place] [address] Performed By: #### 31122-6 ####[facility] [id number] [address] ESTIMATED GLOMERULAR FILTRATION RATE69 mL/min/1.73m???Normal>=60[facility] on above:Order Comment: Specimen Type: BLOOD SPECIMENOrdering Facility: [facility] Address:[address] [place], [place] [address]Result Comment: Estimated Glomerular Filtration Rate (eGFR) is calculated using the 2020 CKD-EPI creatinine equation. This equation utilizes serum creatinine, sex, and age as parameters. The creatinine assay has traceable calibration to isotope dilution-mass spectrometry. Refer to KDIGO guidelines f or clinical interpretation. In patients with unstable renal function, e.g. those with acute kidney injury, the eGFR may not accurately reflect actual GFR. Performed By: #### 21948-6 ####[facility] LABIA [id number] [place] [address] [place] Glucose [Mass/Vol]102 mg/sROgga28-10TgxccjamtBlanchard Valley Health System [facility] Valley HospitalComment on above: Order Comment: Specimen Type: BLOOD SPECIMENOrdering Facility: [facility] Address:[address] [place], [place] [address]Result Comment: The [place] Diabetes Association (ADA) provides guidance for cutoff values for fast ing glucose and random glucose. The ADA defines fasting as no caloric intake for at least 8 hours. Fasting plasma glucose results between 100 to 125 mg/dL indicate increased risk for diabetes (prediabetes).Fasting plasma glucose results greater than or equal to 126 mg/dL meet the criteria for diagnosis of diabetes. In the absence of unequivocal hyperglycemia, results should be confirmed by repeattesting. In a patient with classic symptoms of hyperglycemia or hyperglycemic crisis, random plasmaglucose results greater than or equal to 200 mg/dL meet the criteria for diagnosis of diabetes.Reference: Standards of Medical Care in Diabetes 2016, [place] [employer]. Diabetes Care. 2016.39(Suppl 1).Performed By: #### 18024-1 ####[facility] LABCLIA [id number] [place] [address] [place] AMERICAPotassium [Moles/Vol]4.8 mmol/LNormal3.7-5.1CSelect Medical Specialty Hospital [facility] [place] Comment on above:Order Comment: Specimen Type: BLOOD SPECIMENOrdering Facility: [facility] Address:[address] [place] [address] Performed By: #### 02454-3 ####[facility] LABCLIA [id number] [place] [address] [place] Protein [Mass/Vol]5.5 g/dLLow6.3-8.0[facility] HospitalComment on above: Order Comment: Specimen Type: BLOOD SPECIMENOrdering Facility: [facility] Address:[address] [place], [place] [address]Performed By: #### 98911-9 ####[facility] LABCLIA [id number] [place] [address] [place] AMERICASodium [Moles/Vol]140 mmol/OWdxgxp834-123AdnbmxdwwSouthwest General Health Center on above:Order Comment: Specimen Type: BLOOD SPECIMENOrdering Facility: [facility] Address:[address] [place], [place] [address]Performed By: #### 41784-7 ####[facility] LABCLIA [id number] [place] [address] [place] AMERICAUrea nitrogen [Mass/Vol]31 mg/dL High9-24[facility] on above:Order Comment: Specimen Type: BLOOD SPECIMENOrdering Facility: [facility] Address:[address] [place], [place] [address]Performed By: #### 36579-7 ####[facility] LABIA [id number] [place] [address] [place] AMERICATHERAPY NTon 54-63-6347MLCFKXK NTNormalCSelect Medical Specialty Hospital - Southeast OhioCB panel Auto (Bld)on 40-23-6316Uncmcgdkigd distribution width (RBC) [Ratio]17.2 %High11.5-15.0[facility] on above:Order Comment: Specimen Type: BLOOD SPECIMENOrdering Facility: [facility] Address:[address] [place], [place] [address]Performed By: #### 52442-1 ####[facility] LABCLIA [id number] [place] [address] [place] AMERICAHematocrit (Bld) [Volume fraction]37.8 %Low39.0-51.0[facility] on above: Order Comment: Specimen Type: BLOOD SPECIMENOrdering Facility: [facility] Address:[address] [place], [place] [address]Performed By: #### 88911-7 ####[facility] LABCLIA [id number] [place] [address] [place] AMERICAHemoglobin (Bld) [Mass/Vol]12.1 g/dLLow13.0-17.0[facility] on above:Order Comment: Specimen Type: BLOOD SPECIMENOrdering Facility: [facility] Address:[address] [place], [place] [address]Performed By: #### 87942-9 ####[facility] LABCLIA [id number] [address] (RBC) [Entitic mass]28.4 maRkjlvz21.0-34.0[facility] on above:Order Comment: Specimen Type: BLOOD SPECIMENOrdering Facility: [facility] Address:[address] [place], [place] [address]Performed By: #### 81795-9 ####[facility] LABIA [id number] [address]HC (RBC) [Mass/Vol] 32.0 g/tJDzkdlb72.5-36.0[facility] on above:Order Comment: Specimen Type: BLOOD SPECIMENOrdering Facility: [facility] Address:[address] [place], [place] [address]Performed By: #### 66210-6 ####[facility] LABIA [id number] [address] (RBC) [Entitic vol]88.7 vBJxrnlp54.0-100.0[facility] on above:Order Comment: Specimen Type: BLOOD SPECIMENOrdering Facility: [facility] Address:[address] [place] [address]Performed By: #### 54797-1 ####[facility] LABIA [id number] [address] RBC (Bld) [#/Vol]10*3/uLNormal<0.01[facility] on above:Order Comment: Specimen Type: BLOOD SPECIMENOrdering Facility: [facility] Address:[address] [place] [address]Performed By: #### 68343-9 ####[facility] LABCLIA [id number] [place] [address] [place] AMERICAPlatelet mean volume (Bld) [Entitic vol]12.2 fLNormal9.0-12.7CGlenbeigh Hospital on above:Order Comment: Specimen Type: BLOOD SPECIMENOrdering Facility: [facility] Address:[address] [place], [place] [address]Performed By: #### 26543-2 ####[facility] LABIA [id number] [place] [address] [place] AMERICAPlatelets (Bld) [#/Vol]111 10*3/kLAqj445-962TzpaploqpSouthwest General Health Center on above:Order Comment: Specimen Type: BLOOD SPECIMENOrdering Facility: [facility] Address:[address] [place], [place] [address]Performed By: #### 52769-7 ####[facility] LABIA [id number] [place] [address] [place] AMERICARBC (Bld) [#/Vol]4.26 10*6/uLNormal4.20-6.00[facility] on above:Order Comment: Specimen Type: BLOOD SPECIMENOrdering Facility: [facility] Address:[address] [place] [address]Pwvhktwjq By: #### 10877-2 ####[facility] LABIA [id number] [place] [address] [place] AMERICAWBC (Bld) [#/Vol]4.79 10*3/uL Normal3.70-11.00[facility] on above:Order Comment: Specimen Type: BLOOD SPECIMENOrdering Facility: [facility] Address:[address] [place] [address]Performed By: #### 00191-6 ####[facility] LABCLIA [id number] [place] [address] [place] AMERICACONSULTon 91-75-2943MVJXHHLEawyeg [facility] HospitalCONSULTNormalCKindred Hospital LimaLT PROGon 66-26-4346BNMAVJH PROGNormalBlanchard Valley Health System [facility] HospitalComprehensive metabolic 2000 panelon 27-78-7279Ubollnj [Mass/Vol]3.3 g/dLLow3.9-4.9CGlenbeigh Hospital on above:Order Comment: Specimen Type: BLOOD SPECIMENOrdering Facility: [facility] Address:[address] [place], [place] [address]Performed By: #### 60697-1, 2777, 00949-0 ####[facility] LABCLIA [id number] [address] [place] AMERICAALP [Catalytic activity/Vol]91 U/SGdmrmi46-192ZbbnghbubSouthwest General Health Center on above:Order Comment: Specimen Type: BLOOD SPECIMENOrdering Facility: [facility] Address:[address] [place], [place] [address]Performed By: #### 52543-9, 2777, 85003-9 ####[facility] LABCLIA [id number] [address] [place] AMERICAALT [Catalytic activity/Vol]U/BMjc57-20VkxtourlgSouthwest General Health Center on above:Order Comment: Specimen Type: BLOOD SPECIMENOrdering Facility: [facility] Address:[address] [place], [place] [address]Result Comment: Result rechecked.Performed By: #### 25963-4, 27704-18, 59341-0 ####[facility] LABCLIA [id number] [address] [place] AMERICAAnion gap [Moles/Vol]8 mmol/LLow 9-18[facility] on above:Order Comment: Specimen Type: BLOOD SPECIMENOrdering Facility: [facility] Address:[address] [place], [place] [address]Performed By: #### 22781-9, 2776-10, 48031-9 ####[facility] LABCLIA [id number], [place] [address] [place] AMERICAAST [Catalytic activity/Vol]9 U/L Nlt41-49BdtmchfhgSouthwest General Health Center on above:Order Comment: Specimen Type: BLOOD SPECIMENOrdering Facility: [facility] Address:[address] [place], [place] [address]Performed By: #### 95950-2, 27704-18, ####[facility] LABCLIA [id number] [address] [place] AMERICABilirubin [Mass/Vol]0.2 mg/dL Normal0.2-1.3CGlenbeigh Hospital on above:Order Comment: Specimen Type: BLOOD SPECIMENOrdering Facility: [facility] Address:[address] [place], [place] [address]Performed By: #### 03438-4, 2776-10, ####[facility] LABCLIA [id number] [address] [place] AMERICACalcium [Mass/Vol]8.3 mg/dLLow 8.5-10.2CGlenbeigh Hospital on above:Order Comment: Specimen Type: BLOOD SPECIMENOrdering Facility: [facility] Address:[address] [place], [place] [address]Performed By: #### 45155-8, 2776-10, 18124-1 ####[facility] LABCLIA [id number] [address] [place] AMERICAChloride [Moles/Vol]110 mmol/L Roab08-306RapgniolxSouthwest General Health Center on above:Order Comment: Specimen Type: BLOOD SPECIMENOrdering Facility: [facility] Address:[address] [place], [place] [address]Performed By: #### 13404-6, 2777-, 24897-6 ####[facility] LABCLIA [id number] [address] [place] AMERICACO2 [Moles/Vol]24 mmol/LNormal 22-30[facility] on above:Order Comment: Specimen Type: BLOOD SPECIMENOrdering Facility: [facility] Address:[address] [place], [place] [address]Performed By: #### 46546-0, 27704-18, ####[facility] LABIA [id number], [place] [address] [place] AMERICACreatinine [Mass/Vol]0.94 mg/dL Normal0.73-1.22[facility] on above:Order Comment: Specimen Type: BLOOD SPECIMENOrdering Facility: [facility] Address:[address] [place], [place] [address]Performed By: #### 74930-8, 27704-18, ####[facility] LABIA [id number] [address] [place] AMERICAESTIMATED GLOMERULAR FILTRATION RATE91 mL/min/1.73m???Normal>=60[facility] on above:Order Comment: Specimen Type: BLOOD SPECIMENOrdering Facility: [facility] Address:[address] [place], [place] [address]Result Comment: Estimated Glomerular Filtration Rate (eGFR) is calculated using the 2020 CKD-EPI creatinine equation. This equation utilizes serum creatinine, sex, and age as parameters. The creatinine assay has traceable calibration to isotope dilution-mass spectrometry. Refer to KDIGO guidelines for clinical interpretation. In patients with unstable renal function, e.g. those with acute kidney injury, the eGFR may not accurately reflect actual GFR.Performed By: #### 38378-6, 2777-, 48140-4 ####[facility] LABIA [id number] VILLE [id number] [place] Glucose [Mass/Vol]68 mg/fUEma79-35HuoukeguxSouthwest General Health Center on above: Order Comment: Specimen Type: BLOOD SPECIMENOrdering Facility: [facility] Address:[address] [place], [place] [address]Result Comment: The [place] Diabetes Association (ADA) provides guidance for cutoff values for fast ing glucose and random glucose. The ADA defines fasting as no caloric intake for at least 8 hours. Fasting plasma glucose results between 100 to 125 mg/dL indicate increased risk for diabetes (prediabetes).Fasting plasma glucose results greater than or equal to 126 mg/dL meet the criteria for diagnosis of diabetes. In the absence of unequivocal hyperglycemia, results should be confirmed by repeattesting. In a patient with classic symptoms of hyperglycemia or hyperglycemic crisis, random plasmaglucose results greater than or equal to 200 mg/dL meet the criteria for diagnosis of diabetes.Reference: Standards of Medical Care in Diabetes 2016, [place] [employer]. Diabetes Care. 2016.39(Suppl 1).Performed By: #### 61029-2, 2777-, 10487-9 ####[facility] [id number] [address] [place] AMERICAPotassium [Moles/Vol]4.1 mmol/LNormal3.7-5.1 [facility] on above:Order Comment: Specimen Type: BLOOD SPECIMENOrdering Facility: [facility] Address:[address] [place], [place] [address]Performed By: #### 11188-5, 2777, 72996-8 ####[facility] [id number] VILLE [id number] [place] AMERICAProtein [Mass/Vol]5.7 g/dLLow 6.3-8.0[facility] on above:Order Comment: Specimen Type: BLOOD SPECIMENOrdering Facility: [facility] Address:[address] [place], [place] [address]Performed By: #### 93282-1, 2777, 73868-0 ####[facility] LABIA [id number] [address] [place] AMERICASodium [Moles/Vol]142 mmol/L Mqcdoc053-098RolizbwgsSouthwest General Health Center on above:Order Comment: Specimen Type: BLOOD SPECIMENOrdering Facility: [facility] Address:[address] [place], [place] [address]Performed By: #### 86251-9, 27704-18, 27216-6 ####[facility] LABIA [id number] VILLE [id number] [place] AMERICAUrea nitrogen [Mass/Vol]22 mg/dL Normal9-24[facility] on above:Order Comment: Specimen Type: BLOOD SPECIMENOrdering Facility: [facility] Address:[address] [place], [place] [address]Performed By: #### 77186-4, 27704-18, ####[facility] LABIA [id number] VILLE [id number] [place] AMERICAMagnesium SerPl-mCncon 11-24-2022 Magnesium [Mass/Vol]2.2 mg/dLNormal1.7-2.3CGlenbeigh Hospital on above:Order Comment: Specimen Type: BLOOD SPECIMENOrdering Facility: [facility] Address:[address] [place] [address]Performed By: #### 11310-6, 27704-18, 29873-4 ####[facility] [id number] VILLE [id number] [place] Phosphate SerPl-mCncon 11-99-6089Pmgzoudzz [Mass/Vol]3.3 mg/dLNormal2.7-4.8 [facility] on above:Order Comment: Specimen Type: BLOOD SPECIMENOrdering Facility: [facility] Address:[address] [place] [address]Performed By: #### 38329-1, 2777-1, 22506-7 ####[facility] LABCLIA [id number] [facility]ITE HOSPITALCBC panel Auto (Bld)on 11-23-2022 Erythrocyte distribution width (RBC) [Ratio]16.8 %High11.5-15.0[facility] HospitalComment on above:Order Comment: Specimen Type: BLOOD SPECIMENOrdering Facility: [facility] Address:[address] [place] [address]Performed By: #### 01964-8 ####[facility] LABIA [id number] [address] [place] Hematocrit (Bld) [Volume fraction]35.7 %Low39.0-51.0[facility] Comment on above:Order Comment: Specimen Type: BLOOD SPECIMENOrdering Facility: [facility] Address:[address] [place] [address] Performed By: #### 31945-8 ####[facility] LABIA [id number] [address] [place] Hemoglobin (Bld) [Mass/Vol]11.3 g/dLLow13.0-17.0[facility] Comment on above:Order Comment: Specimen Type: BLOOD SPECIMENOrdering Facility: [facility] Address:[address] [place] [phone] Performed By: #### 69758-7 ####[facility] LABIA [id number] [place] [address] [place] MCH (RBC) [Entitic mass]27.9 zuBbxqzt26.0-34.0[facility] HospitalComment on above:Order Comment: Specimen Type: BLOOD SPECIMENOrdering Facility: [facility] Address:[address] [place] [phone] Performed By: #### 41925-0 ####[facility] LABVERM[facility] [id number] [place] [address] [place] MCHC (RBC) [Mass/Vol]31.7 g/hBRqurgz59.5-36.0[facility] on above:Order Comment: Specimen Type: BLOOD SPECIMENOrdering Facility: [facility] Address:[address] [place] [address] Performed By: #### 03644-1 ####[facility] [id number] [place] [address] [place] MCV (RBC) [Entitic vol]88.1 lGYrcpmm81.0-100.0[facility] on above:Order Comment: Specimen Type: BLOOD SPECIMENOrdering Facility: [facility] Address:[address] [place] [address] Performed By: #### 95827-9 ####[facility] [id number] [place] [address] [place] Nucleated RBC (Bld) [#/Vol]10*3/uLNormal<0.01[facility] on above:Order Comment: Specimen Type: BLOOD SPECIMENOrdering Facility: [facility] Address:[address] [place], [place] [address] Performed By: #### 19767-0 ####[facility] [id number] [place] [address] [place] Platelet mean volume (Bld) [Entitic vol]12.7 fLNormal9.0-12.7CGlenbeigh Hospital on above:Order Comment: Specimen Type: BLOOD SPECIMENOrdering Facility: [facility] Address:[address] [place] [address]Performed By: #### 01414-4 ####[facility] [id number] [place] [address] [place] Platelets (Bld) [#/Vol]106 10*3/pLUfn261-555QgwkywxclSouthwest General Health Center on above:Order Comment: Specimen Type: BLOOD SPECIMENOrdering Facility: [facility] Address:[address] [place] [address]Performed By: #### 73239-0 ####[facility] LABCLIA [id number] [place] [address] [place] AMERICARBC (Bld) [#/Vol]4.05 10*6/uLLow4.20-6.00[facility] on above:Order Comment: Specimen Type: BLOOD SPECIMENOrdering Facility: [facility] Address:[address] [place], [place] [address]Performed By: #### 25100-8 ####[facility] LABCLIA [id number] [place] [address] [place] AMERICAWBC (Bld) [#/Vol]2.81 10*3/uLLow 3.70-11.00[facility] on above:Order Comment: Specimen Type: BLOOD SPECIMENOrdering Facility: [facility] Address:[address] [place] [address]Performed By: #### 80120-7 ####[facility] LABCLIA [id number] [place] [address] [place] AMERICAComprehensive metabolic 2000 panelon 11-23-2022 Albumin [Mass/Vol]3.2 g/dLLow3.9-4.9CGlenbeigh Hospital on above: Order Comment: Specimen Type: BLOOD SPECIMENOrdering Facility: [facility] Address:[address] [place] [address]Performed By: #### 36355-2, 2777-1, 60662-9 ####[facility] LABCLIA [id number] [place] [address] [place] AMERICAALP [Catalytic activity/Vol]84 U/ZGzqqag22-123PykwgdkvkSouthwest General Health Center on above:Order Comment: Specimen Type: BLOOD SPECIMENOrdering Facility: [facility] Address:[address] [place], [place] [address]Performed By: #### 67482-7, 2776-10, ####[facility] LABCLIA [id number] [place] [address] [place] AMERICAALT [Catalytic activity/Vol]U/RNgh67-54RyvjedsomSouthwest General Health Center on above:Order Comment: Specimen Type: BLOOD SPECIMENOrdering Facility: [facility] Address:[address] [place], [place] [address]Performed By: #### 74838-3, 2776-10, ####[facility] LABCLIA [id number] [place] [address] [place] AMERICAAnion gap [Moles/Vol]10 mmol/LNormal9-18[facility] on above:Order Comment: Specimen Type: BLOOD SPECIMENOrdering Facility: [facility] Address:[address] [place], [place] [address]Performed By: #### 46361-5, 2776-10, ####[facility] LABCLIA [id number] [place] [address] [place] AMERICAAST [Catalytic activity/Vol]13 U/AWyx90-37ZhvxlymzvSouthwest General Health Center on above:Order Comment: Specimen Type: BLOOD SPECIMENOrdering Facility: [facility] Address:[address] [place], [place] [address]Performed By: #### 34017-3, 2776-10, ####[facility] LABCLIA [id number] [place] [id number] [place] AMERICABilirubin [Mass/Vol]0.2 mg/dLNormal0.2-1.3CGlenbeigh Hospital on above:Order Comment: Specimen Type: BLOOD SPECIMENOrdering Facility: [facility] Address:[address] [place], [place] [address]Performed By: #### 39962-4, 2776-, 11579-9 ####[facility] LABCLIA [id number] [place] [address] [place] AMERICACalcium [Mass/Vol]8.3 mg/dLLow8.5-10.2CGlenbeigh Hospital on above:Order Comment: Specimen Type: BLOOD SPECIMENOrdering Facility: [facility] Address:[address] [place], [place] [address]Performed By: #### 77354-7, 27704-18, ####[facility] LABCLIA [id number] [place] [address] [place] AMERICAChloride [Moles/Vol]112 mmol/LUija72-599UoukyudoxBlanchard Valley Health System [facility] Valley HospitalComment on above:Order Comment: Specimen Type: BLOOD SPECIMENOrdering Facility: [facility] Address:[address] [place], [place] [address]Performed By: #### 46670-4, 2776-10, 83521-5 ####[facility] LABCLIA [id number] [place] [address] [place] AMERICACO2 [Moles/Vol] 21 mmol/GFln72-49EdmwligabSouthwest General Health Center on above:Order Comment: Specimen Type: BLOOD SPECIMENOrdering Facility: [facility] Address:[address] [place] [address]Performed By: #### 65685-5, 2776-10, 10214-6 ####[facility] LABCLIA [id number] [place] [id number] [place] AMERICACreatinine [Mass/Vol] 0.84 mg/dLNormal0.73-1.22[facility] HospitalComascension borg[facility] on above:Order Comment: Specimen Type: BLOOD SPECIMENOrdering Facility: [facility] Address:[address] [place], [place] [address]Performed By: #### 13058-7, 2777-1, 62567-9 ####[facility] LABIA [id number] [place] [address] [place] AMERICAESTIMATED GLOMERULAR FILTRATION RATE97 mL/min/1.73m???Normal>=60[facility] Comment on above:Order Comment: Specimen Type: BLOOD SPECIMENOrdering Facility: [facility] Address:[address] [place] [address] Result Comment: Estimated Glomerular Filtration Rate (eGFR) is calculated using the 2020 CKD-EPI creatinine equation. This equation utilizes serum creatinine, sex, and age as parameters. The creatinine assay has traceable calibration to isotope dilution-mass spectrometry. Refer to KDIGO guidelines for clinical interpretation. In patients with unstable renal function, e.g. those with acute kidney injury, the eGFR may not accurately reflect actual GFR.Performed By: #### 87515-9, 2777-, 46596-4 ####[facility] LABIA [id number] [address] [place] Glucose [Mass/Vol]102 mg/tXCxxg73-90FbhzydjwxBlanchard Valley Health System [facility] Valley HospitalComment on above: Order Comment: Specimen Type: BLOOD SPECIMENOrdering Facility: [facility] Address:[address] [place], [place] [address]Result Comment: The [place] [employer] Association (ADA) provides guidance for cutoff values for fast ing glucose and random glucose. The ADA defines fasting as no caloric intake for at least 8 hours. Fasting plasma glucose results between 100 to 125 mg/dL indicate increased risk for diabetes (prediabetes).Fasting plasma glucose results greater than or equal to 126 mg/dL meet the criteria for diagnosis of diabetes. In the absence of unequivocal hyperglycemia, results should be confirmed by repeattesting. In a patient with classic symptoms of hyperglycemia or hyperglycemic crisis, random plasmaglucose results greater than or equal to 200 mg/dL meet the criteria for diagnosis of diabetes.Reference: Standards of Medical Care in Diabetes 2016, [place] [employer]. Diabetes Care. 2016.39(Suppl 1).Performed By: #### 89468-9, 2776-10, ####[facility] LABCLIA [id number] [address] [place] AMERICAPotassium [Moles/Vol]4.3 mmol/LNormal3.7-5.1 [facility] on above:Order Comment: Specimen Type: BLOOD SPECIMENOrdering Facility: [facility] Address:[address] [place], [place] [address]Performed By: #### 87026-2, 2776-10, ####[facility] LABCLIA [id number] [address] [place] AMERICAProtein [Mass/Vol]5.3 g/dLLow 6.3-8.0[facility] on above:Order Comment: Specimen Type: BLOOD SPECIMENOrdering Facility: [facility] Address:[address] [place], [place] [address]Performed By: #### 79709-0, 2776-10, ####[facility] LABIA [id number] [address] [place] AMERICASodium [Moles/Vol]143 mmol/L Mfoooh981-332BkrsantovSouthwest General Health Center on above:Order Comment: Specimen Type: BLOOD SPECIMENOrdering Facility: [facility] Address:[address] [place], [place] [address]Performed By: #### 08433-3, 2776-10, ####[facility] LABCLIA [id number] VILLE [address] [place] AMERICAUrea nitrogen [Mass/Vol]21 mg/dL Normal9-24[facility] on above:Order Comment: Specimen Type: BLOOD SPECIMENOrdering Facility: [facility] Address:[address] [place], [place] [address]Performed By: #### 32348-6, 2776-10, ####[facility] LABCLIA [id number] [address] [place] AMERICAMagnesium SerPl-mCncon 11-23-2022 Magnesium [Mass/Vol]2.0 mg/dLNormal1.7-2.3CSelect Medical Specialty Hospital - Southeast OhioComment on above:Order Comment: Specimen Type: BLOOD SPECIMENOrdering Facility: [facility] Address:[address] [place], [place] [address]Performed By: #### 16843-7, 2777-1, 69098-3 ####[facility] [id number] [address] [place] Phosphate SerPl-mCncon 35-63-7503Uwcnhqddm [Mass/Vol]2.8 mg/dLNormal2.7-4.8 [facility] HospitalComment on above:Order Comment: Specimen Type: BLOOD SPECIMENOrdering Facility: [facility] Address:[address] [place], [place] [address]Performed By: #### 24540-6, 2777-1, 41767-4 ####[facility] [id number] [address] [place] AMERICATHERAPY NTon 44-97-2660ISNRSDR NT NormalBlanchard Valley Health System [facility] Valley HospitalCBC panel Auto (Bld)on 47-07-7416Mpldwrwlbyl distribution width (RBC) [Ratio]16.4 %High11.5-15.0[facility] Comment on above:Order Comment: Specimen Type: BLOOD SPECIMENOrdering Facility: [facility] Address:[address] [place] [address] Performed By: #### 66234-3 ####[facility] [id number] [place] [address] [place] Hematocrit (Bld) [Volume fraction]36.4 %Low39.0-51.0[facility] Comment on above:Order Comment: Specimen Type: BLOOD SPECIMENOrdering Facility: [facility] Address:[address] [place] [address] Performed By: #### 67875-8 ####[facility] LABIA [id number] [place] [address] [place] Hemoglobin (Bld) [Mass/Vol]11.6 g/dLLow13.0-17.0[facility] Comment on above:Order Comment: Specimen Type: BLOOD SPECIMENOrdering Facility: [facility] Address:[address] [place] [address] Performed By: #### 32681-6 ####[facility] LABIA [id number] [place] [address] [place] MCH (RBC) [Entitic mass]28.2 obNoqthy12.0-34.0[facility] Valley HospitalComment on above:Order Comment: Specimen Type: BLOOD SPECIMENOrdering Facility: [facility] Address[address] Performed By: #### 31321-1 ####[facility] [id number] [place] [address] [place] MCHC (RBC) [Mass/Vol]31.9 g/xUZzodbh46.5-36.0[facility] HospitalComment on above:Order Comment: Specimen Type: BLOOD SPECIMENOrdering Facility: [facility] Address:[address] [place] [address] Performed By: #### 64345-0 ####[facility] LABIA [id number] [place] [address] [place] MCV (RBC) [Entitic vol]88.6 yOXmxuev63.0-100.0[facility] Valley HospitalComment on above:Order Comment: Specimen Type: BLOOD SPECIMENOrdering Facility: [facility] Address:[address] Performed By: #### 45624-4 ####[facility] LABCLIA [id number] [place] [address] [place] Nucleated RBC (Bld) [#/Vol]10*3/uLNormal<0.01[facility] on above:Order Comment: Specimen Type: BLOOD SPECIMENOrdering Facility: [facility] Address:[address] [place] [address] Performed By: #### 23755-5 ####[facility] LABIA [id number] [place] [address] [place] Platelet mean volume (Bld) [Entitic vol]12.5 fLNormal9.0-12.7CGlenbeigh Hospital on above:Order Comment: Specimen Type: BLOOD SPECIMENOrdering Facility: [facility] Address:[address] [place], [place] [address]Performed By: #### 26732-7 ####[facility] LABIA [id number] [place] [address] [place] Platelets (Bld) [#/Vol]115 10*3/dZYbn418-364AyueixppuSouthwest General Health Center on above:Order Comment: Specimen Type: BLOOD SPECIMENOrdering Facility: [facility] Address:[address] [place], [place] [address]Performed By: #### 49807-9 ####[facility] LABIA [id number] [place] [address] [place] AMERICARBC (Bld) [#/Vol]4.11 10*6/uLLow4.20-6.00[facility] on above:Order Comment: Specimen Type: BLOOD SPECIMENOrdering Facility: [facility] Address:[address] [place] [address]Performed By: #### 01643-8 ####[facility] LABIA [id number] [place] [address] [place] AMERICAWBC (Bld) [#/Vol]2.29 10*3/uLLow 3.70-11.00[facility] on above:Order Comment: Specimen Type: BLOOD SPECIMENOrdering Facility: [facility] Address:[address] [place], [place] [address]Performed By: #### 15210-3 ####[facility] LABCLIA [id number] [address]CK SerPl-cCncon 70-98-5156YO [Catalytic activity/Vol]27 U/WVpb97-675VdxvcstvjSouthwest General Health Center on above:Order Comment: Specimen Type: BLOOD SPECIMENOrdering Facility: [facility] Address:[address] [place], [place] [address]Performed By: #### 49357-0, 36458-8, 2156-6, 7-1 ####[facility] LABCLIA [id number] [address] Comprehensive metabolic 2000 panelon 29-25-8759Hqrwdhc [Mass/Vol]3.4 g/dLLow 3.9-4.9CGlenbeigh Hospital on above:Order Comment: Specimen Type: BLOOD SPECIMENOrdering Facility: [facility] Address:[address] [place], [place] [address]Performed By: #### 01583-5, 57976-5, 2156-6, 2776- 1 ####[facility] LABCLIA [id number] [address]AL [Catalytic activity/Vol]79 U/ZDjcnsv08-269MmdnyhfbqSouthwest General Health Center on above:Order Comment: Specimen Type: BLOOD SPECIMENOrdering Facility: [facility] Address:[address] [place], [place] [address]Performed By: #### 89473-6, 58592-8, 7-6, 2777-1 ####[facility] LABCLIA [id number] [address]ALT [Catalytic activity/Vol]U/UGuz09-93AhaeyipiuSouthwest General Health Center on above:Order Comment: Specimen Type: BLOOD SPECIMENOrdering Facility: [facility] Address:[address] [place] [address]Result Comment: Result rechecked.Performed By: #### 18459-5, 32018-9, 2156-6, 2776-1 ####[facility] LABCLIA [id number] [place] [address] [place] AMERICAAnion gap [Moles/Vol]10 mmol/L Normal9-18[facility] on above:Order Comment: Specimen Type: BLOOD SPECIMENOrdering Facility: [facility] Address:[address] [place], [place] [address]Performed By: #### 03122-6, 32288-5, 6, 2776- ####[facility] LABCLIA [id number] [place] [address] [place] AMERICAAST [Catalytic activity/Vol]11 U/NJqt22-63QfqdxrxnxSouthwest General Health Center on above:Order Comment: Specimen Type: BLOOD SPECIMENOrdering Facility: [facility] Address:[address] [place], [place] [address]Performed By: #### 71142-9, 35045-8, 2156-6, 2776- ####[facility] LABCLIA [id number] [address] [place] Bilirubin [Mass/Vol]mg/dLLow0.2-1.3CGlenbeigh Hospital on above: Order Comment: Specimen Type: BLOOD SPECIMENOrdering Facility: [facility] Address:[address] [place], [place] [address]Performed By: #### 31738-0, 09497-3, 2156-6, 2776-1 ####[facility] LABCLIA [id number] [place] [address] [place] Calcium [Mass/Vol]8.7 mg/dLNormal8.5-10.2CGlenbeigh Hospital on above:Order Comment: Specimen Type: BLOOD SPECIMENOrdering Facility: [facility] Address:[address] [place], [place] [address]Performed By: #### 38469-9, 44378-8, 2156-6, 2776-1 ####[facility] LABCLIA [id number] [place] [address] [place] Chloride [Moles/Vol]109 mmol/FNbne99-356KfcztvqyaSouthwest General Health Center on above:Order Comment: Specimen Type: BLOOD SPECIMENOrdering Facility: [facility] Address:[address] [place], [place] [address]Performed By: #### 18680-8, 03721-5, 6, 2776- ####[facility] LABCLIA [id number] [place] [address] [place] CO2 [Moles/Vol]23 mmol/VOagfmw09-06IgfowsxutSouthwest General Health Center on above: Order Comment: Specimen Type: BLOOD SPECIMENOrdering Facility: [facility] Address:[address] [place], [place] [address]Performed By: #### 38638-0, 17289-8, 2157-03, 2776- ####[facility] LABCLIA [id number] [place] [address] [place] Creatinine [Mass/Vol]0.95 mg/dLNormal0.73-1.22[facility] on above:Order Comment: Specimen Type: BLOOD SPECIMENOrdering Facility: [facility] Address:[address] [place] [address] Performed By: #### 13824-9, 46878-5, 6, 2776-1 ####[facility] LABCLIA [id number] [address] STATES OF AMERICAESTIMATED GLOMERULAR FILTRATION RATE89 mL/min/1.73m???Normal >=60[facility] on above:Order Comment: Specimen Type: BLOOD SPECIMENOrdering Facility: [facility] Address:[address] [place], [place] [address]Result Comment: Estimated Glomerular Filtration Rate (eGFR) is calculated using the 2020 CKD-EPI creatinine equation. This equation utilizes serum creatinine, sex, and age as parameters. The creatinine assay has traceable calibration to isotope dilution-mass spectrometry. Refer to KDIGO guidelines for clinical interpretation. In patients with unstable renal function, e.g. those with acute kidney injury, the eGFR may not accurately reflect actual GFR.Performed By: #### 93408-7, 95182-2, 2157-03, 2776-10 ####[facility] LABCLIA [id number] [place] [id number] [place] AMERICAGlucose [Mass/Vol]101 mg/dLHigh 74-99[facility] on above:Order Comment: Specimen Type: BLOOD SPECIMENOrdering Facility: [facility] Address:[address] [place] [id number] Comment: The [place] Diabetes Association (ADA) provides guidance for cutoff values for fasting glucose and random glucose. The ADA defines fasting as no caloric intake for at least 8 hours. F asting plasma glucose results between 100 to 125 mg/dL indicate increased risk for diabetes (prediabetes).Fasting plasma glucose results greater than or equal to 126 mg/dL meet the criteria for diagnosis of diabetes. In the absence of unequivocal hyperglycemia, results should be confirmed by repeattesting. In a patient with classic symptoms of hyperglycemia or hyperglycemic crisis, random plasmaglucose results greater than or equal to 200 mg/dL meet the criteria for diagnosis of diabetes.Reference: Standards of Medical Care in Diabetes 2016, [place] [employer]. Diabetes Care. 2016.39(Suppl 1).Performed By: #### 80425-2, 71853-1, 2157-03, 2776-10 ####[facility] LABCLIA [id number] [place] [id number] [place] Potassium [Moles/Vol]3.9 mmol/LNormal3.7-5.1CGlenbeigh Hospital on above:Order Comment: Specimen Type: BLOOD SPECIMENOrdering Facility: [facility] Address:[address] [place], [place] [address]Performed By: #### 32959-7, 03128-6, 6, 2776- ####[facility] LABCLIA [id number] [place] [address] [place] Protein [Mass/Vol]5.4 g/dLLow6.3-8.0[facility] on above: Order Comment: Specimen Type: BLOOD SPECIMENOrdering Facility: [facility] Address:[address] [place], [place] [id number] By: #### 81618-9, 95444-6, 2157-03, 2776-10 ####[facility] LABIA [id number] [place] [address] [place] Sodium [Moles/Vol]142 mmol/ZDgsjzn295-742DffggmkezSouthwest General Health Center on above:Order Comment: Specimen Type: BLOOD SPECIMENOrdering Facility: [facility] Address:[address] [place] [address]Performed By: #### 96778-9, 03243-7, 2157-03, 2776-10 ####[facility] LABIA [id number] [place] [address] [place] Urea nitrogen [Mass/Vol]19 mg/dLNormal9-24[facility] on above:Order Comment: Specimen Type: BLOOD SPECIMENOrdering Facility: [facility] Address:[address] [place], [place] [address]Performed By: #### 20726-7, 45725-8, 2157-03, 2776-10 ####[facility] LABCLIA [id number] [place] [address] [place] Magnesium SerPl-mCncon 95-32-5352Cmldffddi [Mass/Vol]2.2 mg/dLNormal1.7-2.3 [facility] HospitalComment on above:Order Comment: Specimen Type: BLOOD SPECIMENOrdering Facility: [facility] Address:[address] [place], [place] [address]Performed By: #### 23499-3, 11366-1, 2157-6, 2777-1 ####[facility] LABCLIA [id number] [address] STATES OF WHITE HOSPITALPT panel Coag (PPP)on 11-22-2022 INR Coag (PPP) [Relative time]1.0 {INR}Normal0.9-1.3CSelect [facility] [place] Comment on above:Order Comment: Specimen Type: BLOOD SPECIMENOrdering Facility: [facility] Address:[address] [place] [address] Result Comment: Vitamin K Antagonist (VKA) Therapeutic Range: INR 2 to 3 (Target INR of 2.5)Note: For patients treated with VKA drugs, such as warfarin, the [place] [employer] 2012 Guideline recommends a therapeutic INR range of 2 to 3 (target INR of 2.5). This recommendation includes high-risk patients with antiphospholipid syndrome with previous arterial or venous thromboembolism, current-generation mechanical or bioprosthetic aortic heart valve replacement.Note: Patients with mechanical aortic valve replacement and additional risk factors for thromboembolic events (atrialfibrillation, previous thromboembolism, LV dysfunction, hypercoagulable conditions) or an older gene ration mechanical AVR (i.e., ball in-Cage) or any mechanical MVR should have a INR therapeutic range of 2.5 to 3.5 (target INR of 3).Mukesh GH, et al. Chest 2012, 141:7S-47SNishimura RA, et al. JAC 2017, 70: 252-289Performed By: #### 12572-8 ####[facility] LABCLIA [id number] [place] [id number] [place] OF AMERICAPT Coag (PPP) [Time] 10.1 sNormal9.7-13.0[facility] on above:Order Comment: Specimen Type: BLOOD SPECIMENOrdering Facility: [facility] Address:[address] [place], [place] [address]Performed By: #### 17407-7 ####[facility] LABCLIA [id number] [place] [address] [place] AMERICAPhosphate [facility] 11-22-2022 Phosphate [Mass/Vol]3.5 mg/dLNormal2.7-4.8CGlen[facility]igh Hospital on above:Order Comment: Specimen Type: BLOOD SPECIMENOrdering Facility: [facility] Address:[address] [place], [place] [address]Performed By: #### 14509-9, 06176-3, 2157-6, 2777-1 ####[facility] LABCLIA [id number] [place] [address] [place] THERAPY NTon 75-97-6603SBZJIZJ NTNormalCregency hospital companyand [facility] HEALTHon 36-62-1640ISWYGM HEALTHNormalCregency hospital companyand [facility] HEALTHNormal [facility] HospitalCONSULTon 38-86-9898SBGSNGPXionheArzfquabv [facility] PROGon 41-69-2790SLCOQZS PROGNormalBlanchard Valley [facility] NUTRITIONon 69-14-0563XJMEBKKVURhdckuStgyoxxwh [facility] Wake CountyTHERAPY NTon 15-11-8689CQKXRUF NTNormalCregency hospital companyand [facility]25([place])D3 [facility] 17-21-186405717552-mosicdiuucqfao D3 [Mass/Vol]15.0 ng/mLLow31.0-80.0[facility] on above:Order Comment: Specimen Type: BLOOD SPECIMENOrdering Facility: [facility] Address:[address] [place], [place] [address]Result Comment: Classification of 25 [place] Vitamin D status:Deficiency/Insufficiency: < or = 30 ng/ml.Sufficiency/Optimal Levels: 31- 80 ng/mLToxicity: > 100 ng/mL.Test performed by chemiluminescent immunoassay. Performed By: #### 1989-3 ####[facility] LABIA [id number] [place] [address] [place] CBC W Auto Differential panel (Bld)on 00-21-3894Ftdirhudr (Bld) [#/Vol]10*3/uL Normal<0.11CGlenbeigh Hospital on above:Order Comment: Specimen Type: BLOOD SPECIMENOrdering Facility: [facility] Address:[address] [place], [place] [address]Performed By: #### 81659-7, 23183-0, 65275-8 ####[facility] [id number] [address] STATES OF WHITE HOSPITALBasophils/100 WBC (Bld)0.2 % NormalSouthwest General Health Center on above:Order Comment: Specimen Type: BLOOD SPECIMENOrdering Facility: [facility] Address:[address] [place], [place] [address]Performed By: #### 34729-3, 89779-5, 40336-9 ####[facility] [id number] [address] STATES OF AMERICAEosinophils (Bld) [#/Vol]0.08 10*3/uLNormal<0.46[facility] on above:Order Comment: Specimen Type: BLOOD SPECIMENOrdering Facility: [facility] Address:[address] [place], [place] [address]Performed By: #### 06900-7, 71059-4, 90502-4 ####[facility] [id number] [address] OF AMERICAEosinophils/100 WBC (Bld)1.8 %NormalSouthwest General Health Center on above:Order Comment: Specimen Type: BLOOD SPECIMENOrdering Facility: [facility] Address:[address] [place], [place] [address]Performed By: #### 62972-6, 33926-0, 16985-5 ####[facility] LABCLIA [id number] [place] [address] [place] AMERICAImmature granulocytes (Bld) [#/Vol]0.03 10*3/uLNormal<0.10[facility] on above: Order Comment: Specimen Type: BLOOD SPECIMENOrdering Facility: [facility] Address:[address] [place], [place] [address]Performed By: #### 80443-8, 63703-9, 16241-7 ####[facility] LABIA [id number] [place] [address] [place] Immature granulocytes/100 WBC (Bld)0.7 %NormalBlanchard Valley Health System Blanchard Valley HospitalComment on above:Order Comment: Specimen Type: BLOOD SPECIMENOrdering Facility: [facility] Address:[address] [place] [address] Performed By: #### 56378-9, 15215-9, 02903-6 ####[facility]IA [id number] [place] [address] [place] AMERICALymphocytes (Bld) [#/Vol]0.74 10*3/uLLow1.00-4.00[facility] on above:Order Comment: Specimen Type: BLOOD SPECIMENOrdering Facility: [facility] Address:[address] [place] [address]Performed By: #### 08141-5, 54646-0, 37600-7 ####[facility] LABIA [id number] [place] [address] [place] AMERICALymphocytes/100 WBC (Bld)16.4 %NormalBlanchard Valley Health System [facility] Comment on above:Order Comment: Specimen Type: BLOOD SPECIMENOrdering Facility: [facility] Address:[address] [place] [address] Performed By: #### 10079-2, 92089-3, 30239-8 ####[facility] LABCLIA [id number] [address] [address] [place] AMERICAMonocytes (Bld) [#/Vol]0.53 10*3/uLNormal<0.87[facility] Comment on above:Order Comment: Specimen Type: BLOOD SPECIMENOrdering Facility: [facility] Address:[address] [place], [place] [address] Performed By: #### 53148-7, 63311-5, 91038-6 ####[facility] LABCLIA [id number] [place] [address] [place] AMERICAMonocytes/100 WBC (Bld)11.8 %NormalBlanchard Valley Health System Blanchard Valley HospitalComment on above:Order Comment: Specimen Type: BLOOD SPECIMENOrdering Facility: [facility] Address:[address] [place], [place] [address]Performed By: #### 09031-1, 28326-4, 29267-0 ####[facility] LABCLIA [id number] [place] [address] [place] Neutrophils (Bld) [#/Vol]3.11 10*3/uLNormal1.45-7.50[facility] Comment on above:Order Comment: Specimen Type: BLOOD SPECIMENOrdering Facility: [facility] Address:[address] [place] [address] Performed By: #### 36303-2, 63729-7, 42627-6 ####[facility] LABCLIA [id number] [place] [id number] [place] AMERICANeutrophils/100 WBC (Bld)69.1 %NormalBlanchard Valley Health System [facility] Valley HospitalComascension borgess hospital on above:Order Comment: Specimen Type: BLOOD SPECIMENOrdering Facility: [facility] Address:[address] [place] [address] Performed By: #### 36261-9, 61941-9, 92626-1 ####[facility] LABCLIA [id number] [address] [address] [place] FAUQUIER HEALTH SYSTEMCBC panel Auto (Bld)on 36-29-8292Xkzpckodblo distribution width (RBC) [Ratio]15.9 %High11.5-15.0[facility] on above:Order Comment: Specimen Type: BLOOD SPECIMENOrdering Facility: [facility] Address:[address] [place] [address]Performed By: #### 25047-7, 13901-3, 20950-2 ####[facility] LABIA [id number] [address] STATES [facility] Hematocrit (Bld) [Volume fraction]39.8 %Hplobc73.0-51.0[facility] on above:Order Comment: Specimen Type: BLOOD SPECIMENOrdering Facility: [facility] Address:[address] [place] [address]Performed By: #### 88345-5, 80674-0, 63128-3 ####[facility] LABIA [id number] [address] ST[address]ETHemoglobin (Bld) [Mass/Vol]12.5 g/dLLow13.0-17.0[facility] on above:Order Comment: Specimen Type: BLOOD SPECIMENOrdering Facility: [facility] Address:[address] [place] [address]Performed By: #### 65661-1, 85818-1, 40110-8 ####[facility] LABIA [id number] [place] [address] [place] AMERICAMCH (RBC) [Entitic mass]27.9 pg Rklios14.0-34.0[facility] on above:Order Comment: Specimen Type: BLOOD SPECIMENOrdering Facility: [facility] Address:[address] [place] [address]Performed By: #### 64709-7, 47604-8, 78425-1 ####[facility] LABIA [id number] [address]ETMCHC (RBC) [Mass/Vol] 31.4 g/qLXknaue34.5-36.0[facility] HospitalComment on above:Order Comment: Specimen Type: BLOOD SPECIMENOrdering Facility: [facility] Address:[address] [place] [address]Performed By: #### 84692-7, 83901-7, 94851-1 ####[facility]IA [id number] [address] MCV (RBC) [Entitic vol]88.8 vWXgeyis09.0-100.0[facility] Valley HospitalComment on above:Order Comment: Specimen Type: BLOOD SPECIMENOrdering Facility: [facility] Address:[address] [place] [address] Performed By: #### 75843-4, 77951-2, 71251-7 ####[facility] LABIA [id number] [address]ucleated RBC (Bld) [#/Vol]10*3/uLNormal<0.01[facility] Comment on above:Order Comment: Specimen Type: BLOOD SPECIMENOrdering Facility: [facility] Address:[address] [place] [address] Performed By: #### 13012-0, 50979-4, 94694-7 ####[facility] LABIA [id number] [address]ETPlatelet mean volume (Bld) [Entitic vol]11.8 fLNormal9.0-12.7CSelect Medical Specialty Hospital - Southeast OhioComment on above:Order Comment: Specimen Type: BLOOD SPECIMENOrdering Facility: [facility] Address:[address] [place] [address]Performed By: #### 07443-5, 08507-4, 30814-4 ####[facility] LABCLIA [id number] [address] OF WHITE HOSPITALPlatelets (Bld) [#/Vol]138 10*3/iWIxk284-893VsuidgbfhSouthwest General Health Center on above:Order Comment: Specimen Type: BLOOD SPECIMENOrdering Facility: [facility] Address:[address]Result Comment: No clot detected.Results checked and verified.Performed By: #### 01774-3, 87736-4, 27957-9 ####[facility] LABCLIA [id number] [address]RB (Bld) [#/Vol]4.48 10*6/uLNormal4.20-6.00[facility] on above:Order Comment: Specimen Type: BLOOD SPECIMENOrdering Facility: [facility] Address:[address]Performed By: #### 37573-5, 54868-7, 37719-1 ####[facility] LABCLIA [id number] [address] OF WHITE HOSPITALWBC (Bld) [#/Vol]4.53 10*3/uLNormal3.70-11.00[facility] on above:Order Comment: Specimen Type: BLOOD SPECIMENOrdering Facility: [facility] Address:[address] [place] [address]Performed By: #### 69464-5, 06793-4, 24104-7 ####[facility] LABCLIA [id number] [address] STATES OF AMERICACONSULTon 11-20-2022 CONSULTNormalClevelFirstHealth Moore Regional HospitalCalcium.ionized [Moles/Vol]on 11-20-2022 Calcium.ionized (Bld) [Mass/Vol]1.27 mmol/LNormal1.08-1.30[facility] on above:Order Comment: Specimen Type: BLOOD SPECIMENOrdering Facility: [facility] Address:[address] [place], [place] [address]Performed By: #### ####[facility] [id number] [place] [address] [place] Calcium.ionized adjusted to pH 7.4 (Bld) [Moles/Vol]1.23 mmol/LNormal1.08-1.30 [facility] on above:Order Comment: Specimen Type: BLOOD SPECIMENOrdering Facility: [facility] Address:[address] [place], [place] [address]Performed By: #### ####[facility] [id number] [address]ETComprehensive metabolic 2000 panelon 40-40-7275Pqjbity [Mass/Vol]4.0 g/dLNormal3.9-4.9CGlenbeigh Hospital on above:Order Comment: Specimen Type: BLOOD SPECIMENOrdering Facility: [facility] Address:[address] [place], [place] [address]Performed By: #### 33341-3, , ####[facility] LABVERMONT [facility] [id number] [place] [address] [place] ALP [Catalytic activity/Vol]90 U/RVohrsj98-684AqbpmkxdxSouthwest General Health Center on above:Order Comment: Specimen Type: BLOOD SPECIMENOrdering Facility: [facility] Address:[address] [place] [address] Performed By: #### 47406-3, , ####[facility] LABIA [id number] [address] [place] [address] [place] AMERICAALT [Catalytic activity/Vol]7 U/RSxc52-43IjnbwcvpqBlanchard Valley Health System [facility] Comment on above:Order Comment: Specimen Type: BLOOD SPECIMENOrdering Facility: [facility] Address:[address] [place], [place] [address] Performed By: #### 54524-8, , ####[facility] LABCLIA [id number] [place] [address] [place] AMERICAAnion gap [Moles/Vol]12 mmol/LNormal9-18[facility] Valley HospitalComment on above:Order Comment: Specimen Type: BLOOD SPECIMENOrdering Facility: [facility] Address:[address] [place] [address] Performed By: #### 51891-2, , ####[facility] LABCLIA [id number] [place] [address] [place] AMERICAAST [Catalytic activity/Vol]11 U/WZhq06-72XsinlifdyBlanchard Valley Health System [facility] Comment on above:Order Comment: Specimen Type: BLOOD SPECIMENOrdering Facility: [facility] Address:[address] [place] [address] Performed By: #### 49699-1, , ####[facility] LABCLIA [id number] [place] [address] [place] AMERICABilirubin [Mass/Vol]0.2 mg/dLNormal0.2-1.3CSelect [facility] [place] Comment on above:Order Comment: Specimen Type: BLOOD SPECIMENOrdering Facility: [facility] Address:[address] [place], [place] [address] Performed By: #### 12160-3, , ####[facility] LABCLIA [id number] [place] [address] [place] AMERICACalcium [Mass/Vol]8.9 mg/dLNormal8.5-10.2CSelect [facility] [place] Comment on above:Order Comment: Specimen Type: BLOOD SPECIMENOrdering Facility: [facility] Address:[address] [place], [place] [address] Performed By: #### 97076-5, , ####[facility] LABCLIA [id number] [place] [address] [place] AMERICAChloride [Moles/Vol]110 mmol/EBjat69-344UvqxkpbggBlanchard Valley Health System [facility] Comment on above:Order Comment: Specimen Type: BLOOD SPECIMENOrdering Facility: [facility] Address:[address] [place], [place] [address] Performed By: #### 81587-0, , ####[facility] LABCLIA [id number] [place] [address] [place] AMERICACO2 [Moles/Vol]20 mmol/CTnp61-16VwcfbkknwBlanchard Valley Health System [facility] Valley HospitalComment on above:Order Comment: Specimen Type: BLOOD SPECIMENOrdering Facility: [facility] Address:[address] [place], [place] [address]Performed By: #### 90958-0, , ####[facility] LABCLIA [id number] [place] [address] [place] Creatinine [Mass/Vol]0.95 mg/dLNormal0.73-1.22[facility] HospitalComment on above:Order Comment: Specimen Type: BLOOD SPECIMENOrdering Facility: [facility] Address:[address] [place], [place] [address] Performed By: #### 17107-7, , ####[facility] LABCLIA [id number] [place] [address] [place] AMERICAESTIMATED GLOMERULAR FILTRATION RATE89 mL/min/1.73m???Normal>=60 [facility] Valley HospitalComment on above:Order Comment: Specimen Type: BLOOD SPECIMENOrdering Facility: [facility] Address:[address] [place] [address]Ogqdxw Comment: Estimated Glomerular Filtration Rate (eGFR) is calculated using the 2020 CKD-EPI creatinine equation. This equation utilizes serum creatinine, sex, and age as parameters. The creatinine assay has traceable calibration to isotope dilution-mass spectrometry. Refer to KDIGO guidelines for clinical interpretation. In patients with unstable renal function, e.g. those with acute kidney injury, the eGFR may not accurately reflect actual GFR.Performed By: #### 78441-0, , ####[facility]IA [id number] [address] [address] [place] AMERICAGlucose [Mass/Vol]74 mg/uIGvhnjo01-74KxbcfsuveSouthwest General Health Center on above:Order Comment: Specimen Type: BLOOD SPECIMENOrdering Facility: [facility] Address:[address] [place], [place] [address] Comment: The [place] Diabetes Association (ADA) provides guidance for cutoff [...] unequivocal hyperglycemia, results should be confirmed by repeattesting. In a patient with classic symptoms of hyperglycemia or hyperglycemic crisis, random plasmaglucose results greater than or equal to 200 mg/dL meet the criteria for diagnosis of diabetes.Reference: Standards of Medical Care in Diabetes 2016, [place] [employer] Association. Diabetes Care. 2016.39(Suppl 1).Performed By: #### 33624- 8, , ####[facility]IA [id number] [address] [address] [place] AMERICAPotassium [Moles/Vol]4.2 mmol/LNormal3.7-5.1CGlenbeigh Hospital on above: Order Comment: Specimen Type: BLOOD SPECIMENOrdering Facility: [facility] Address:[address] [place] [address]Prswkxwjj By: #### 23898-7, 35596-7, 24360-2 ####[facility] LABIA [id number] [place] [id number] [place] Protein [Mass/Vol]6.2 g/dLLow6.3-8.0[facility] on above: Order Comment: Specimen Type: BLOOD SPECIMENOrdering Facility: [facility] Address:[address] [place] [address]Vnuatcsho By: #### 17863-9, , ####[facility]IA [id number] [place] [address] [place] Sodium [Moles/Vol]142 mmol/WPvrgck129-296RcpzdubuoSouthwest General Health Center on above:Order Comment: Specimen Type: BLOOD SPECIMENOrdering Facility: [facility] Address:[address] [place] [phone] By: #### 73955-8, , ####[facility]IA [id number] [place] [address] [place] Urea nitrogen [Mass/Vol]26 mg/dLHigh9-24[facility] on above:Order Comment: Specimen Type: BLOOD SPECIMENOrdering Facility: [facility] Address:[address] [place] [phone] By: #### 37828-2, , ####[facility]IA [id number] [place] [id number] [place] ZDO63nj 52-64-3828MUB09DqivvhVbhhocllo [facility] PROV NOTEon 11-20-2022 ED PROV NOTENormalCleveland [facility] PROV NOTENormalCleveland Formerly [facility] Wake CountyHISTORY PHYSICALon 68-39-8304BYHSECS PHYSICALNormalCleveland Formerly [facility] Of Wake CountyLIPID PANEL, NONFASTINGon 92-96-8856Izyulnjccgs [Mass/Vol]135 mg/dL Normal<200[facility] on above:Order Comment: Specimen Type: BLOOD SPECIMENOrdering Facility: [facility] Address:[address] [place], [place] [address]Result Comment: <200 mg/dL, Desirable 200- 239 mg/dL, Borderline high>239 mg/dL, HighPerformed By: #### LIPNF ####[facility] LABCLIA [id number] [place] [address] [place] WHITE HOSPITALHDL CHOLESTEROL, NF35 mg/dLLow>39[facility] on above:Order Comment: Specimen Type: BLOOD SPECIMENOrdering Facility: [facility] Address:[address] [place] [address]Result Comment: 40-59 mg/dL, Acceptable>59 mg/dL, High: Negative risk factor for coronary heart disease<40 mg/dL, Low: Positive risk factor for coronary heart diseasePerformed By: #### LIPNF ####[facility] LABCLIA [id number] [address] STATES OF WHITE HOSPITALLDL CHOLESTEROL, NF76 mg/dLNormal<100[facility] on above:Order Comment: Specimen Type: BLOOD SPECIMENOrdering Facility: [facility] Address:[address] [place] [address] Result Comment: <100 mg/dL, Optimal 100-129 mg/dL, Near optimal/above optimal 130-159 mg/dL, Borderline high 160-189 mg/dL, High>189 mg/dL, Very highSecondary prevention optimal LDL Cholesterollevels are recommended to be < 70 mg/dL Performed By: #### LIPNF ####[facility] LABCLIA [id number] [address] STATES OF WHITE HOSPITALLDL/HDL RATIO, NF2.17 mg/dLNormal<2.54[facility] on above:Order Comment: Specimen Type: BLOOD SPECIMENOrdering Facility: [facility] Address:[address] [place], [place] [address]Result Comment: Reference:1. National Cholesterol Education Program ATP III Guideline At-A-Glance Quick Desk Reference: National Heart, Lung, and Blood [place]. National Institutes of Health. 2001:NIH Publication No. 01-3305.2. An International Atherosclerosis Society position paper: global recommendations for the management of dyslipidemia: executive summary, Atherosclerosis. 2014: 232(2):410-413.Performed By: #### LIPNF ####[facility] LABCLIA [id number] [address] OF [place] HDL CHOL, NF100 mg/dLNormal<130[facility] on above:Order Comment: Specimen Type: BLOOD SPECIMENOrdering Facility: [facility] Address:[address] [place], [place] [address]Result Comment: <130 mg/dL, Optimal 130-159 mg/dL, Near optimal/above optimal 160-189 mg/dL, Borderline high 190-219 mg/dL, High>219 mg/dL, Very highSecondary prevention optimal non HDL Cholesterol levels are recommended to be <100 mg/dL Performed By: #### LIPNF ####[facility] LABIA [id number] [address]T CHOL/HDL RATIO NF3.86 mg/dLNormal<5.10[facility] on above:Order Comment: Specimen Type: BLOOD SPECIMENOrdering Facility: [facility] Address:[address] [place], [place] [address]Performed By: #### LIPNF ####[facility] LABCLIA [id number] [address] STATES OF AMERICATRIGLYCERIDES, NF118 mg/dLNormal <150[facility] on above:Order Comment: Specimen Type: BLOOD SPECIMENOrdering Facility: [facility] Address:[address] [place], [place] [address]Result Comment: <150 mg/dL, Normal 150-199 mg/dL, Borderline high 200-499 mg/dL, High>499 mg/dL, Very highPerformed By: #### LIPNF ####[facility] LABCLIA [id number] [place] [address] [place] AMERICAVLDL CHOLESTEROL, NF24 mg/dLNormal <30[facility] on above:Order Comment: Specimen Type: BLOOD SPECIMENOrdering Facility: [facility] Address:[address] [place], [place] [address]Performed By: #### LIPNF ####[facility] LABCLIA [id number] [place] [address] [place] AMERICAMagnesium SerPl-mCncon 10-14-5793Qjybydcqu [Mass/Vol]2.1 mg/dL Normal1.7-2.3CGlenbeigh Hospital on above:Order Comment: Specimen Type: BLOOD SPECIMENOrdering Facility: [facility] Address:[address] [place], [place] [address]Performed By: #### 14635-8, 68943-4, 33457-4 ####[facility] LABIA [id number] [place] [address] [place] AMERICAPrealb SerPl-mCncon 11-20-2022 Prealbumin [Mass/Vol]25 mg/tKNehysv86-66KuusalnuhSouthwest General Health Center on above:Order Comment: Specimen Type: BLOOD SPECIMENOrdering Facility: [facility] Address:[address] [place] [address]Performed By: #### 02517-8 ####[facility] LABIA [id number] [place] [address] [place] AMERICAProcalcitonin SerPl-mCncon 19-28-7155Hljrmctjixpbm [Mass/Vol]0.10 ng/mLHigh<0.09[facility] on above:Order Comment: Specimen Type: BLOOD SPECIMENOrdering Facility: [facility] Address:[address] [place] [address]Result Comment: For a guided interpretation of test results, please visit the Change in Procalcitonin Calculator, [email or web address].Performed By: #### 05998-9, 59537-8, 90277-7 ####[facility] LABIA [id number] [address] OF AMERICARetics #on 11-20-2022 Reticulocytes (Bld) [#/Vol]0.70709 10*3/uLNormal0.018-0.100[facility] on above:Order Comment: Specimen Type: BLOOD SPECIMENOrdering Facility: [facility] Address:[address] [place], [place] [address]Performed By: #### 63713-7, 33371-5, 30877-1 ####[facility] [id number] [place] [address] [place] [facility] OF AMERICAReticulocytes (Bld) [#/Vol]on 86-12-5553Lkyaejbzsftlw/100 RBC (Bld)1.4 %Normal0.4-2.0[facility] on above:Order Comment: Specimen Type: BLOOD SPECIMENOrdering Facility: [facility] Address:[address] [place], [place] [address]Performed By: #### 99516-9, 08638-0, 21109-5 ####[facility] [id number] [place] [address] [place] JRRYVINARSZ-XgX-2 RNA Resp Ql KELLIE+probeon 29-89-5338THBR-CoV-2 (COVID-19) RNA KELLIE+probe Ql (Resp)COVID 19 RESULT: Detected The method used is RT-PCR or an equivalent NAAT method. Reference Range(the expected result in uninfected individuals): Not detected NormalSouthwest General Health Center on above:Performed By: #### 91475-9 ####[facility] LABIA [id number] [place] [address] [place] AMERICAUrinalysis complete panel (U)on 68-17-3717Ebplziqxv Ql (U)NegativeNormalNegativeBlanchard Valley Health [facility] Comment on above:Order Comment: Specimen Type: URINE SPECIMENOrdering Facility: [facility] Address:[address] [place] [address] Performed By: #### 52071-2 ####[facility] LABCLIA [id number] [place] [address] [place] MIRNA Clarity (Unsp spec)ClearNormalClearSouthwest General Health Center on above: Order Comment: Specimen Type: URINE SPECIMENOrdering Facility: [facility] Address:[address] [place], [place] [address]Performed By: #### 45228-2 ####[facility] LABCLIA [id number] [place] [address] [place] AMERICAColor (U)YellowNormal YellowSouthwest General Health Center on above:Order Comment: Specimen Type: URINE SPECIMENOrdering Facility: [facility] Address:[address] [place], [place] [address]Performed By: #### 47012-2 ####[facility] LABCLIA [id number] [place] [address] [place] AMERICAGlucose Test strip (U) [Mass/Vol]NegativeNormalTrace, NegativeSouthwest General Health Center on above:Order Comment: Specimen Type: URINE SPECIMENOrdering Facility: [facility] Address:[address] [place], [place] [address]Performed By: #### 21243-9 ####[facility] LABCLIA [id number] [place] [address] [place] AMERICAHemoglobin Ql (U)NegativeNormalNegative, Trace [facility] on above:Order Comment: Specimen Type: URINE SPECIMENOrdering Facility: [facility] Address:[address] [place] [address]Performed By: #### 34844-9 ####[facility] LABCLIA [id number] [place] [address] [place] WHITE HOSPITALKetones Ql (U)TraceNormalTrace, NegativeSouthwest General Health Center on above:Order Comment: Specimen Type: URINE SPECIMENOrdering Facility: [facility] Address:[address] [place], [place] [address]Performed By: #### 02537-8 ####[facility] LABIA [id number] [place] [address] [place] Leukocyte esterase Test strip Ql (U)NegativeNormalNegative, 25 Winter/mLCGlenbeigh Hospital on above:Order Comment: Specimen Type: URINE SPECIMENOrdering Facility: [facility] Address:[address] [place], [place] [address]Performed By: #### 11481-7 ####[facility] LABIA [id number] [place] [address] [place] AMERICANitrite Ql (U)NegativeNormalNegativeBlanchard Valley Health [facility] Comment on above:Order Comment: Specimen Type: URINE SPECIMENOrdering Facility: [facility] Address:[address] [place] [address] Performed By: #### 24923-3 ####[facility] LABIA [id number] [place] [address] [place] pH (U)5.0 [pH]Normal5.0-8.0[facility] on above:Order Comment: Specimen Type: URINE SPECIMENOrdering Facility: [facility] Address:[address] [place], [place] [address]Performed By: #### 21759-5 ####[facility] LABIA [id number] [place] [address] [place] AMERICAProtein (U) [Mass/Vol] TraceNormalTrace, NegativeSouthwest General Health Center on above:Order Comment: Specimen Type: URINE SPECIMENOrdering Facility: [facility] Address:[address] [place], [place] [address]Performed By: #### 33466-2 ####[facility] LABIA [id number] [place] [address] [place] WHITE HOSPITALRB LM.HPF (Urine sed) [#/Area]3-5 /HPFAbnormal0-3 /HPFSouthwest General Health Center on above: Order Comment: Specimen Type: URINE SPECIMENOrdering Facility: [facility] Address:[address] [place], [place] [address]Performed By: #### 59449-3 ####[facility] LABIA [id number] [place] [address] [place] AMERICASpecific gravity (U) [Rel density]1.975Orcwmr7.005-1.030[facility] on above: Order Comment: Specimen Type: URINE SPECIMENOrdering Facility: [facility] Address:[address] [place], [place] [address]Performed By: #### 48555-3 ####[facility] LABIA [id number] [place] [address] [place] WHITE HOSPITALUrobilinogen Ql (U) NegativeNormalNegativeSouthwest General [facility] on above:Order Comment: Specimen Type: URINE SPECIMENOrdering Facility: [facility] Address:[address] [place] [address]Performed By: #### 05498-1 ####[facility] LABVERMONT [facility] [id number] [place] [address] [place] AMERICAW LM.HPF (Urine sed) [#/Area]0- 5 /HPFNormal0-5 /HPFSouthwest General Health Center on above:Order Comment: Specimen Type: URINE SPECIMENOrdering Facility: [facility] Address:[address] [place] [address]Performed By: #### 28113-1 ####[facility] LABCLIA [id number] [place] [address] [place] AMERICAXR CHEST 1V FRONTAL PORTon 25-55-3880RR CHEST 1V FRONTAL PORTNoMount Carmel Health SystemCBC AUTO DIFF on 04-10-3299LFOG #0.0 103/ulNormal0.0-0.1The Metrohealth SystemComment on above: Performed By: #### CBC #### [facility] [address] [address] [address] Bruce NicholasBasophils/100 WBC (Bld)0.1 %Critically low0.2-2.0The [facility] HospitalComment on above:Performed By: #### CBC #### [facility] [address] [place] [address] Dr. Bruce Johnson #0.0 103/ulNormal0.0-0.7The [facility] HospitalComment on above: Performed By: #### CBC #### [facility] [address] [address] [address] Bruce Coleyosinophils/100 WBC (Bld)0.0 %Critically low0.9-7.0The [facility] HospitalComment on above:Performed By: #### CBC #### [facility] [address] [place] [address] Dr. Bruce Coleyrythrocyte distribution width (RBC) [Ratio]16.0 %Critically high 11.0-15.0The [facility] HospitalComment on above:Performed By: #### CBC #### [facility] [address] [place] [address] Dr. Bruce NicholasHematocrit (Bld) [Volume fraction]36.6 %Critically low42.0-54.0 The [facility] HospitalComment on above:Performed By: #### CBC #### [facility] [address] [place] [address] Dr. Bruce NicholasHemoglobin (Bld) [Mass/Vol]12.3 g/dLCritically low14.0-18.0The [facility] SystemComment on above:Performed By: #### CBC #### [facility] [address] [place] [address] Dr. Bruce Agrawal #0.06 10e3/ulCritically high0.00-0.03The [facility] Comment on above:Performed By: #### CBC #### [facility] [address] [place] [address] Dr. Bruce Agrawal %0.7 %Critically high0.0-0.5The [facility] HospitalComment on above:Performed By: #### CBC #### [facility] [address] [place] [address] Dr. Bruce Randhawa #1.0 103/ulCritically low1.2-3.8The [facility] Comment on above:Performed By: #### CBC #### [facility] [address] [place] [address] Dr. Bruce Machadohocytes/100 WBC (Bld)11.8 %Critically low20.5-60.0The [facility] SystemComment on above:Performed By: #### CBC #### [facility] [address] [place] [address] Dr. Bruce DunhamUAL DIFF REQNONormalThe [facility] HospitalComment on above: Performed By: #### CBC #### [facility] [address] [place] [address] Dr. Bruce Hickman (RBC) [Entitic mass]27.3 xmRaxlnb39.9-34.0The [facility] HospitalComment on above:Performed By: #### CBC #### [facility] [address] [place] [address] Dr. Bruce Hickman (RBC) [Mass/Vol]33.6 g/bXSlvsbo04.9-35.2The [facility] HospitalComment on above:Performed By: #### CBC #### [facility] [address] [place] [address] Dr. Bruce Hickman (RBC) [Entitic vol]81.2 nSOvxabf16.0-94.0The [facility] HospitalComment on above:Performed By: #### CBC #### [facility] [address] [place] [address] Dr. Bruce Virk #0.2 103/ulCritically low0.3-0.8The [facility] HospitalComment on above:Performed By: #### CBC #### [facility] [address] [place] [address] Dr. Bruce Correaocytes/100 WBC (Bld)3.0 %Normal1.7-12.0[facility] Comment on above:Performed By: #### CBC #### [facility] [address] [place] [address] Dr. Bruce Rangel #6.8 103/ulCritically high1.4-6.5The [facility] Comment on above:Performed By: #### CBC #### [facility] [address] [place] [address] Dr. Bruce Francoisutrophils/100 WBC (Bld)84.4 %Critically high43.0-75.0The [facility] HospitalComment on above:Performed By: #### CBC #### [facility] [address] [place] [address] Dr. Bruce Gallo mean volume (Bld) [Entitic vol]11.6 fLNormal9.5-13.5The [facility] HospitalComment on above:Performed By: #### CBC #### [facility] [address] [place] [address] Dr. Bruce NicholasPLT206 103/meZnoikm922-553Cnd [facility] HospitalComment on above: Performed By: #### CBC #### [facility] [address] [place] [address] Dr. Bruce GuerraC4.51 106/ulCritically low4.70-6.10The [facility] HospitalComment on above:Performed By: #### CBC #### [facility] [address] [place] [address] Dr. Bruce NicholasWBC8.1 103/ulNormal4.0-11.0The [facility] HospitalComment on above: Performed By: #### CBC #### [facility] [address] [address] [address] Bruce NicholasPOINT OF CARE GLUCOSEon 37-44-2672Cyqimid [Mass/Vol]134 mg/dL Critically wznx94-679Evs [facility] HospitalComment on above:Performed By: #### POCGLUC #### [facility] [address] [address] [address] Bruce NicholasPROF CHEM 8 (BAS METB)on 18-86-0415Ihbyb gap [Moles/Vol]13.3 mmol/LNormalThe [facility] HospitalComment on above:Performed By: #### POCGLUC #### [facility] [address] [place] [address] Dr. Bruce NicholasCalcium [Mass/Vol]9.0 mg/dLNormal8.5-10.1The [facility] Comment on above:Performed By: #### POCGLUC #### [facility] [address] [place] [address] Dr. Bruce NicholasChloride [Moles/Vol]105 mmol/PXiseln34-427Ggf [facility] Comment on above:Performed By: #### POCGLUC #### [facility] [address] [place] [address] Dr. Bruce NicholasCO2 [Moles/Vol]24.9 mmol/JHwxdrv94.0-32.0[facility] Comment on above:Performed By: #### POCGLUC #### [facility] [address] [place] [address] Dr. Bruce NicholasCreatinine [Mass/Vol]0.86 mg/dLNormal0.70-1.30The [facility] HospitalComment on above:Performed By: #### POCGLUC #### [facility] [address] [place] [address] Dr. Bruce ColeyGFR-AF BRUNEIAN>60Normal>=60The [facility] HospitalComment on above:Performed By: #### POCGLUC #### [facility] [address] [place], [place] [address] Dr. Bruce ColeyGFR-NON AF BRUNEIAN>60Normal>=60The [facility] HospitalComment on above:Performed By: #### POCGLUC #### [facility] [address] [address] [address] Bruce NicholasGlucose [Mass/Vol]127 mg/dLCritically eayh98-588Fkq [facility] HospitalComment on above:Performed By: #### POCGLUC #### [facility] [address] [address] [address] Bruce NicholasPotassium [Moles/Vol]4.2 mmol/LNormal3.5-5.1The [facility] Comment on above:Performed By: #### POCGLUC #### [facility] [address] [place] [address] Dr. Bruce NicholasSodium [Moles/Vol]139 mmol/PNluikq636-371Rcf [facility] Comment on above:Performed By: #### POCGLUC #### [facility] [address] [place] [address] Dr. Bruce NicholasUrea nitrogen [Mass/Vol]30.0 mg/dLCritically high7.0-18.0The [facility] HospitalComment on above:Performed By: #### POCGLUC #### [facility] [address] [place] [address] Dr. Bruce NicholasUrea nitrogen/Creatinine [Mass ratio]34.9 mg/mgNormalThe [facility] HospitalComment on above:Performed By: #### POCGLUC #### [facility] [address] [place] [address] Dr. Bruce Perdomo AUTO DIFFon 59-99-4810TTIA #0.0 103/ulNormal0.0-0.1The [facility] HospitalComment on above:Performed By: #### CVDTBH #### [facility] [address] [place] [address] Dr. Bruce NicholasBasophils/100 WBC (Bld)0.1 %Critically low0.2-2.0The [facility] HospitalComment on above:Performed By: #### CVDTBH #### [facility] [address] [place] [address] Dr. Bruce Johnson #0.0 103/ulNormal0.0-0.7The [facility] HospitalComment on above: Performed By: #### CVDTBH #### [facility] [address] [place] [address] Dr. Bruce Coleyosinophils/100 WBC (Bld)0.0 %Critically low0.9-7.0The [facility] HospitalComment on above:Performed By: #### CVDTBH #### [facility] [address] [place] [address] Dr. Bruce Coleyrythrocyte distribution width (RBC) [Ratio]15.8 %Critically high 11.0-15.0The [facility] HospitalComment on above:Performed By: #### CVDTBH #### [facility] [address] [place] [address] Dr. Bruce NicholasHematocrit (Bld) [Volume fraction]33.4 %Critically low42.0-54.0 The [facility] HospitalComment on above:Performed By: #### CVDTBH #### [facility] [address] [place] [address] Dr. Bruce NicholasHemoglobin (Bld) [Mass/Vol]11.5 g/dLCritically low14.0-18.0The [facility] HospitalComment on above:Performed By: #### CVDTBH #### [facility] [address] [place] [address] Dr. Bruce Agrawal #0.05 10e3/ulCritically high0.00-0.03The [facility] Comment on above:Performed By: #### CVDTBH #### [facility] [address] [place] [address] Dr. Bruce Agrawal %0.5 %Normal0.0-0.5The [facility] HospitalComment on above: Performed By: #### CVDTBH #### [facility] [address] [place] [address] Dr. Bruce MachadoH #0.9 103/ulCritically low1.2-3.8The [facility] Comment on above:Performed By: #### CVDTBH #### [facility] [address] [place] [address] Dr. Bruce Trippmphocytes/100 WBC (Bld)9.6 %Critically low20.5-60.0The [facility] HospitalComment on above:Performed By: #### CVDTBH #### [facility] [address] [place] [address] Dr. Bruce Dial DIFF REQNONormalThe [facility] HospitalComment on above: Performed By: #### CVDTBH #### [facility] [address] [place] [address] Dr. Bruce Bhakta (RBC) [Entitic mass]27.5 jiEnklkf50.9-34.0The [facility] HospitalComment on above:Performed By: #### CVDTBH #### [facility] [address] [place] [address] Dr. Bruce Hickman (RBC) [Mass/Vol]34.4 g/kDXoeybl72.9-35.2The [facility] HospitalComment on above:Performed By: #### CVDTBH #### [facility] [address] [place] [address] Dr. Bruce Hickman (RBC) [Entitic vol]79.9 fLCritically low80.0-94.0The [facility] HospitalComment on above:Performed By: #### CVDTBH #### [facility] [address] [place] [address] Dr. Bruce Virk #0.3 103/ulNormal0.3-0.8ThProMedica Flower HospitalComment on above:Performed By: #### CVDTBH #### [facility] [address] [place] [address] Dr. Bruce Correaocytes/100 WBC (Bld)3.3 %Normal1.7-12.0[facility] Comment on above:Performed By: #### CVDTBH #### [facility] [address] [address] [address] Bruce Rangel #8.3 103/ulCritically high1.4-6.5The [facility] Comment on above:Performed By: #### CVDTBH #### [facility] [address] [place] [address] Dr. Bruce Francoisutrophils/100 WBC (Bld)86.5 %Critically high43.0-75.0The [facility] HospitalComment on above:Performed By: #### CVDTBH #### [facility] [address] [place] [address] Dr. Bruce Garcialet mean volume (Bld) [Entitic vol]12.1 fLNormal9.5-13.5The [facility] HospitalComment on above:Performed By: #### CVDTBH #### [facility] [address] [place] [address] Dr. Bruce NicholasPLT205 103/wkKyjioz335-778Lkg [facility] HospitalComment on above: Performed By: #### CVDTBH #### [facility] [address] [place] [address] Dr. Bruce NicholasRBC4.18 106/ulCritically low4.70-6.10The [facility] HospitalComment on above:Performed By: #### CVDTBH #### [facility] [address] [place] [address] Dr. Bruce NicholasWBC9.6 103/ulNormal4.0-11.0The [facility] HospitalComment on above: Performed By: #### CVDTBH #### [facility] [address] [place] [address] Dr. Bruce NicholasALBEMAR[facility] GLUCOSEon 47-61-4702Etocezj [Mass/Vol]121 mg/dL Critically oequ82-266Zmh [facility] HospitalComment on above:Performed By: #### CVDTBH #### [facility] [address] [place] [address] Dr. Bruce NicholasGlucose [Mass/Vol]126 mg/dLCritically ufma62-430Uat [facility] HospitalComment on above:Performed By: #### CBC #### [facility] [address] [address] [address] Bruce NicholasGlucose [Mass/Vol]164 mg/dLCritically tqln21-891Jll [facility] HospitalComment on above:Performed By: #### CBC #### [facility] [address] [address] [address] Bruce NicholasPROF CHEM 8 (BAS METB)on 00-68-5789Yehcc gap [Moles/Vol]14.2 mmol/LNormalThe [facility] HospitalComment on above:Performed By: #### POCGLUC #### [facility] [address] [address] [address] Bruce NicholasCalcium [Mass/Vol]8.9 mg/dLNormal8.5-10.1The [facility] Comment on above:Performed By: #### POCGLUC #### [facility] [address] [address] [address] Bruce NicholasChloride [Moles/Vol]107 mmol/EBznudb74-000Dja [facility] Comment on above:Performed By: #### POCGLUC #### [facility] [address] [address] [address] Bruce NicholasCO2 [Moles/Vol]22.8 mmol/SJxirtf32.0-32.0The [facility] Comment on above:Performed By: #### POCGLUC #### [facility] [address] [address] [address] Bruce NicholasCreatinine [Mass/Vol]0.94 mg/dLNormal0.70-1.30The [facility] HospitalComment on above:Performed By: #### POCGLUC #### [facility] [address] [address] [address] Barrera ChangEGFR-AF BRUNEIAN>60Normal>=60The [facility] HospitalComment on above:Performed By: #### POCGLUC #### [facility] [address] [address] [address] Bruce ColeyGFR-NON AF BRUNEIAN>60Normal>=60The [facility] HospitalComment on above:Performed By: #### POCGLUC #### [facility] [address] [address] [address] Bruce NicholasGlucose [Mass/Vol]128 mg/dLCritically sqmg92-628Dnz [facility] HospitalComment on above:Performed By: #### POCGLUC #### [facility] [address] [address] [address] Bruce NicholasPotassium [Moles/Vol]4.0 mmol/LNormal3.5-5.1[facility] Comment on above:Performed By: #### POCGLUC #### [facility] [address] [address] [address] Bruce NicholasSodium [Moles/Vol]140 mmol/UXuamyc439-958Jkx [facility] Comment on above:Performed By: #### POCGLUC #### [facility] [address] [address] [address] Bruce NicholasUrea nitrogen [Mass/Vol]33.0 mg/dLCritically high7.0-18.0The [facility] HospitalComment on above:Performed By: #### POCGLUC #### [facility] [address] [address] [address] Bruce Broussard nitrogen/Creatinine [Mass ratio]35.1 mg/mgNormalThe [facility] HospitalComment on above:Performed By: #### POCGLUC #### [facility] [address] [address] [address] Bruce NicholasXR CHEST 2 Von 84-17-8942HB CHEST 2 VEXAM: XR CHEST 2 V 11/07/2022 COMPARISON STUDY: [...] Electronically authenticated by: EN GONZALES Date: 2022-11-08 13:38NoHocking [facility] AUTO DIFFon 28-06-5542DCOY #0.0 103/ulNormal0.0-0.1The [facility] HospitalComment on above:Performed By: #### CBC #### [facility] [address] [place] [address] Dr. Bruce NicholasBasophils/100 WBC (Bld)0.0 %Critically low0.2-2.0The [facility] HospitalComment on above:Performed By: #### CBC #### [facility] [address] [place] [address] Dr. Bruce Johnson #0.0 103/ulNormal0.0-0.7The [facility] HospitalComment on above: Performed By: #### CBC #### [facility] [address] [address] [address] Bruce Coleyosinophils/100 WBC (Bld)0.0 %Critically low0.9-7.0The [facility] HospitalComment on above:Performed By: #### CBC #### [facility] [address] [place] [address] Dr. Bruce Coleyrythrocyte distribution width (RBC) [Ratio]16.1 %Critically high 11.0-15.0The [facility] HospitalComment on above:Performed By: #### CBC #### [facility] [address] [place] [address] Dr. Bruce NicholasHematocrit (Bld) [Volume fraction]36.3 %Critically low42.0-54.0 The [facility] HospitalComment on above:Performed By: #### CBC #### [facility] [address] [place] [address] Dr. Bruce NicholasHemoglobin (Bld) [Mass/Vol]11.5 g/dLCritically low14.0-18.0The [facility] HospitalComment on above:Performed By: #### CBC #### [facility] [address] [address] [address] Bruce Agrawal #0.07 10e3/ulCritically high0.00-0.03The [facility] Comment on above:Performed By: #### CBC #### [facility] [address] [address] [address] Bruce Agrawal %0.6 %Critically high0.0-0.5The [facility] HospitalComment on above:Performed By: #### CBC #### [facility] [address] [place] [address] Dr. Bruce Randhawa #0.9 103/ulCritically low1.2-3.8The [facility] Comment on above:Performed By: #### CBC #### [facility] [address] [place] [address] Dr. Bruce Machadohocytes/100 WBC (Bld)7.2 %Critically low20.5-60.0The [facility] HospitalComment on above:Performed By: #### CBC #### [facility] [address] [place] [address] Dr. Bruce Dial DIFF REQNONormalThe [facility] HospitalComment on above: Performed By: #### CBC #### [facility] [address] [place] [address] Dr. Bruce Hickman (RBC) [Entitic mass]27.7 eeXkdvwp65.9-34.0The [facility] HospitalComment on above:Performed By: #### CBC #### [facility] [address] [place] [address] Dr. Bruce Hickman (RBC) [Mass/Vol]31.7 g/cQEoqwxr09.9-35.2The [facility] HospitalComment on above:Performed By: #### CBC #### [facility] [address] [place] [address] Dr. Bruce Hickman (RBC) [Entitic vol]87.5 dYFjuwya95.0-94.0The [facility] HospitalComment on above:Performed By: #### CBC #### [facility] [address] [place] [address] Dr. Bruce Virk #0.3 103/ulNormal0.3-0.8The [facility] HospitalComment on above:Performed By: #### CBC #### [facility] [address] [place] [address] Dr. Bruce Correaocytes/100 WBC (Bld)2.9 %Normal1.7-12.0The [facility] Comment on above:Performed By: #### CBC #### [facility] [address] [place] [address] Dr. Bruce Rangel #10.6 103/ulCritically high1.4-6.5The [facility] Comment on above:Performed By: #### CBC #### [facility] [address] [place] [address] Dr. Bruce Francoisutrophils/100 WBC (Bld)89.3 %Critically high43.0-75.0The [facility] SystemComment on above:Performed By: #### CBC #### [facility] [address] [place] [address] Dr. Bruce Gallo mean volume (Bld) [Entitic vol]12.4 fLNormal9.5-13.5ThProMedica Flower HospitalComment on above:Performed By: #### CBC #### [facility] [address] [place] [address] Dr. Bruce NicholasPLT195 103/joLizbxs144-200Lcf [facility] HospitalComment on above: Performed By: #### CBC #### [facility] [address] [place] [address] Dr. Bruce NicholasRBC4.15 106/ulCritically low4.70-6.10The [facility] HospitalComment on above:Performed By: #### CBC #### [facility] [address] [place] [address] Dr. Bruce NicholasWBC11.9 103/ulCritically high4.0-11.0The [facility] HospitalComment on above:Performed By: #### CBC #### [facility] [address] [address] [address] Bruce NicholasPOINT OF CARE GLUCOSEon 61-78-6315Gfprayv [Mass/Vol]145 mg/dL Critically sedo13-621Ylj [facility] HospitalComment on above:Performed By: #### POCGLUC #### [facility] [address] [place] [address] Dr. Bruce NicholasGlucose [Mass/Vol]139 mg/dLCritically tnai18-698Ngo [facility] HospitalComment on above:Performed By: #### CBC #### [facility] [address] [place] [address] Dr. Bruce NicholasGlucose [Mass/Vol]122 mg/dLCritically jfph89-076QbuThe [facility] SystemComment on above:Performed By: #### POCGLUC #### [facility] [address] [place] [address] Dr. Bruce NicholasPROF CHEM 8 (BAS METB)on 34-67-8598Dsndi gap [Moles/Vol]14.8 mmol/LNormalThe [facility] SystemComment on above:Performed By: #### CBC #### [facility] [address] [place] [address] Dr. Bruce NicholasCalcium [Mass/Vol]9.0 mg/dLNormal8.5-10.1The [facility] Comment on above:Performed By: #### CBC #### [facility] [address] [place] [address] Dr. Bruce NicholasChloride [Moles/Vol]107 mmol/JUhoqwc17-601CutThe [facility] Comment on above:Performed By: #### CBC #### [facility] [address] [place] [address] Dr. Bruce NicholasCO2 [Moles/Vol]21.3 mmol/YRarxxz44.0-32.0The [facility] Comment on above:Performed By: #### CBC #### [facility] [address] [place] [address] Dr. Bruce NicholasCreatinine [Mass/Vol]1.11 mg/dLNormal0.70-1.30The [facility] HospitalComment on above:Performed By: #### CBC #### [facility] [address] [place] [address] Dr. Bruce ColeyGFR-AF BRUNEIAN>60Normal>=60The [facility] HospitalComment on above:Performed By: #### CBC #### [facility] [address] [place] [address] Dr. Bruce ColeyGFR-NON AF BRUNEIAN>60Normal>=60The [facility] HospitalComment on above:Performed By: #### CBC #### [facility] [address] [place] [address] Dr. Bruce NicholasGlucose [Mass/Vol]158 mg/dLCritically ubii49-219Dtv [facility] HospitalComment on above:Performed By: #### CBC #### [facility] [address] [place] [address] Dr. Bruce NicholasPotassium [Moles/Vol]4.1 mmol/LNormal3.5-5.1The [facility] Comment on above:Performed By: #### CBC #### [facility] [address] [place] [address] Dr. Bruce NicholasSodium [Moles/Vol]139 mmol/EVwvzdy858-188Gid [facility] Comment on above:Performed By: #### CBC #### [facility] [address] [place] [address] Dr. Bruce NicholasUrea nitrogen [Mass/Vol]28.0 mg/dLCritically high7.0-18.0The [facility] HospitalComment on above:Performed By: #### CBC #### [facility] [address] [place] [address] Dr. Bruce NicholasUrea nitrogen/Creatinine [Mass ratio]25.2 mg/mgNormalThe [facility] HospitalComment on above:Performed By: #### CBC #### [facility] [address] [place] [address] Dr. Bruce MonsonC AUTO DIFFon [id number] #0.0 103/ulNormal0.0-0.1The [facility] HospitalComment on above:Performed By: #### CBC #### [facility] [address] [place] [address] Dr. Bruce NicholasBasophils/100 WBC (Bld)0.0 %Critically low0.2-2.0The [facility] HospitalComment on above:Performed By: #### CBC #### [facility] [address] [place] [address] Dr. Bruce Johnson #0.0 103/ulNormal0.0-0.7The [facility] HospitalComment on above: Performed By: #### CBC #### [facility] [address] [place] [address] Dr. Bruce Coleyosinophils/100 WBC (Bld)0.0 %Critically low0.9-7.0The [facility] HospitalComment on above:Performed By: #### CBC #### [facility] [address] [place] [address] Dr. Bruce Coleyrythrocyte distribution width (RBC) [Ratio]15.8 %Critically high 11.0-15.0The [facility] HospitalComment on above:Performed By: #### CBC #### [facility] [address] [place] [address] Dr. Bruce NicholasHematocrit (Bld) [Volume fraction]37.1 %Critically low42.0-54.0 The [facility] HospitalComment on above:Performed By: #### CBC #### [facility] [address] [place] [address] Dr. Bruce NicholasHemoglobin (Bld) [Mass/Vol]11.7 g/dLCritically low14.0-18.0The [facility] HospitalComment on above:Performed By: #### CBC #### [facility] [address] [place] [address] Dr. Bruce Agrawal #0.03 10e3/ulNormal0.00-0.03The [facility] HospitalComment on above:Performed By: #### CBC #### [facility] [address] [address] [address] Bruce Agrawal %0.4 %Normal0.0-0.5The [facility] HospitalComment on above: Performed By: #### CBC #### [facility] [address] [place] [address] Dr. Bruce Randhawa #0.7 103/ulCritically low1.2-3.8The [facility] Comment on above:Performed By: #### CBC #### [facility] [address] [place] [address] Dr. Bruce Machadohocytes/100 WBC (Bld)9.9 %Critically low20.5-60.0The [facility] HospitalComment on above:Performed By: #### CBC #### [facility] [address] [place] [address] Dr. Bruce DunhamUAL DIFF REQNONormalThe [facility] HospitalComment on above: Performed By: #### CBC #### [facility] [address] [place] [address] Dr. Bruce Hickman (RBC) [Entitic mass]27.3 nlCibzfq87.9-34.0The [facility] HospitalComment on above:Performed By: #### CBC #### [facility] [address] [place] [address] Dr. Bruce Hickman (RBC) [Mass/Vol]31.5 g/nGWnlcmb77.9-35.2The [facility] HospitalComment on above:Performed By: #### CBC #### [facility] [address] [place] [address] Dr. Bruce Hickman (RBC) [Entitic vol]86.5 uHSxyfqb23.0-94.0The [facility] HospitalComment on above:Performed By: #### CBC #### [facility] [address] [place] [address] Dr. Bruce Virk #0.1 103/ulCritically low0.3-0.8The [facility] HospitalComment on above:Performed By: #### CBC #### [facility] [address] [place] [address] Dr. Bruce Correaocytes/100 WBC (Bld)1.9 %Normal1.7-12.0The [facility] Comment on above:Performed By: #### CBC #### [facility] [address] [place] [address] Dr. Bruce FrancoisUT #6.0 103/ulNormal1.4-6.5The [facility] HospitalComment on above:Performed By: #### CBC #### [facility] [address] [place] [address] Dr. Bruce Francoisutrophils/100 WBC (Bld)87.8 %Critically high43.0-75.0The [facility] HospitalComment on above:Performed By: #### CBC #### [facility] [address] [place] [address] Dr. Bruce NicholasPlatelet mean volume (Bld) [Entitic vol]12.4 fLNormal9.5-13.5The [facility] HospitalComment on above:Performed By: #### CBC #### [facility] [address] [place] [address] Dr. Bruce NicholasPLT186 103/ehKfmzjy673-512Awh [facility] HospitalComment on above: Performed By: #### CBC #### [facility] [address] [place] [address] Dr. Bruce NicholasRBC4.29 106/ulCritically low4.70-6.10The [facility] HospitalComment on above:Performed By: #### CBC #### [facility] [address] [place] [address] Dr. Bruce NicholasWBC6.9 103/ulNormal4.0-11.0The [facility] HospitalComment on above: Performed By: #### CBC #### [facility] [address] [place] [address] Dr. Bruce NicohlasALBEMARLE [facility] GLUCOSEon 03-16-4182Pasxdcu [Mass/Vol]139 mg/dL Critically gkql58-454Lhh [facility] HospitalComment on above:Performed By: #### POCGLUC #### [facility] [address] [address] [address] Bruce NicholasGlucose [Mass/Vol]129 mg/dLCritically swji37-964Irw [facility] HospitalComment on above:Performed By: #### POCGLUC #### [facility] [address] [address] [address] Bruce NicholasGlucose [Mass/Vol]128 mg/dLCritically ohcj44-868Fpz [facility] HospitalComment on above:Performed By: #### POCGLUC #### [facility] [address] [address] [address] Bruce NicholasPROF CHEM 8 (BAS METB)on 63-55-1069Ssfrh gap [Moles/Vol]17.3 mmol/LNormalThe [facility] HospitalComment on above:Performed By: #### CBC #### [facility] [address] [address] [address] Bruce NicholasCalcium [Mass/Vol]9.0 mg/dLNormal8.5-10.1The [facility] Comment on above:Performed By: #### CBC #### [facility] [address] [address] [address] Bruce NicholasChloride [Moles/Vol]107 mmol/ASfpqdm38-567Qzo [facility] Comment on above:Performed By: #### CBC #### [facility] [address] [address] [address] Bruce NicholasCO2 [Moles/Vol]20.4 mmol/LCritically low21.0-32.0The [facility] HospitalComment on above:Performed By: #### CBC #### [facility] [address] [address] [address] Bruce NicholasCreatinine [Mass/Vol]1.12 mg/dLNormal0.70-1.30The [facility] HospitalComment on above:Performed By: #### CBC #### [facility] [address] [address] [address] Barrera ChangEGFR-AF BRUNEIAN>60Normal>=60The [facility] HospitalComment on above:Performed By: #### CBC #### [facility] [address] [address] [address] Bruce ColeyGFR-NON AF BRUNEIAN>60Normal>=60The [facility] HospitalComment on above:Performed By: #### CBC #### [facility] [address] [address] [address] Bruce NicholasGlucose [Mass/Vol]184 mg/dLCritically lvvz32-619Mva [facility] HospitalComment on above:Performed By: #### CBC #### [facility] [address] [address] [address] Bruce NicholasPotassium [Moles/Vol]3.7 mmol/LNormal3.5-5.1The [facility] Comment on above:Performed By: #### CBC #### [facility] [address] [address] [address] Bruce NicholasSodium [Moles/Vol]141 mmol/UIkhtve384-309Wia [facility] Comment on above:Performed By: #### CBC #### [facility] [address] [address] [address] Bruce NicholasUrea nitrogen [Mass/Vol]25.0 mg/dLCritically high7.0-18.0The [facility] on above:Performed By: #### CBC #### [facility] [address] [address] [address] Bruce NicholasUrea nitrogen/Creatinine [Mass ratio]22.3 mg/mgNormalThe [facility] HospitalComment on above:Performed By: #### CBC #### [facility] [address] [address] [address] Bruce Guzmán 42-63-4256Lkzawjnimsd peptide B (Bld) [Mass/Vol]131.0 pg/mL Normal<=900.0The [facility] on above:Performed By: #### CBC #### [facility] [address] [address] [address] Bruce Delcid EAMON ADMITon [id number] [Catalytic activity/Vol]44 U/L Cvwlcu21-837Rnp [facility] Hospitalment on above:Performed By: #### CBC #### [facility] [address] [place] [address] Dr. Bruce Manzano.MB [Mass/Vol]1.08 ng/mLNormal<=3.60The [facility] Comment on above:Performed By: #### CBC #### [facility] [address] [place] [address] Dr. Bruce MoellerTROP5.2 pg/mLNormal4.0-76.1[facility] on above:Result Comment: CUT-OFF POINTS HAVE BEEN ESTABLISHED BASED ON THE FOURTH UNIVERSAL DEFINITIONS OF MYOCARDIAL INFARCTION. THE UPPER REFERENCE LIMIT (URL) OF TROPONIN, DEFINED THE 99TH PERCENTILE OF cTnI DISTRIBUTION IN A REFERENCE POPULATION, HAS BEEN CONFIRMED THE DECISION THRESHOLD FOR AK DIAGNOSIS.Performed By: #### CBC #### [facility] [address] [place] [address] Dr. Bruce ThompsonO57 ng/zWRlnwyd56-02Brz [facility] HospitalComment on above: Performed By: #### CBC #### [facility] [address] [place] [address] Dr. Bruce Perdomo AUTO DIFFon [id number] #0.0 103/ulNormal0.0-0.1[facility] Northment on above:Performed By: #### CBC #### [facility] [address] [place] [address] Dr. Bruce NicholasBasophils/100 WBC (Bld)0.6 %Normal0.2-2.0The [facility] Comment on above:Performed By: #### CBC #### [facility] [address] [place] [address] Dr. Bruce Johnson #0.1 103/ulNormal0.0-0.7The [facility] on above: Performed By: #### CBC #### [facility] [address] [place] [address] Dr. Bruce Coleyosinophils/100 WBC (Bld)1.3 %Normal0.9-7.0The [facility] Comment on above:Performed By: #### CBC #### [facility] [address] [place] [address] Dr. Bruce Coleyrythrocyte distribution width (RBC) [Ratio]15.4 %Critically high 11.0-15.0The [facility] HospitalComment on above:Performed By: #### CBC #### [facility] [address] [place] [address] Dr. Bruce NicholasHematocrit (Bld) [Volume fraction]44.9 %Nimwwy67.0-54.0The [facility] HospitalComment on above:Performed By: #### CBC #### [facility] [address] [place] [address] Dr. Bruce NicholasHemoglobin (Bld) [Mass/Vol]14.0 g/sZVjpfdq40.0-18.0The [facility] HospitalComment on above:Performed By: #### CBC #### [facility] [address] [place] [address] Dr. Bruce Agrawal #0.02 10e3/ulNormal0.00-0.03The [facility] HospitalComment on above:Performed By: #### CBC #### [facility] [address] [place] [address] Dr. Bruce Agrawal %0.3 %Normal0.0-0.5The [facility] HospitalComment on above: Performed By: #### CBC #### [facility] [address] [place] [address] Dr. Bruce Randhawa #2.3 103/ulNormal1.2-3.8The [facility] HospitalComment on above:Performed By: #### CBC #### [facility] [address] [place] [address] Dr. Bruce Machadohocytes/100 WBC (Bld)31.7 %Vmnnzg20.5-60.0The [facility] HospitalComment on above:Performed By: #### CBC #### [facility] [address] [place] [address] Dr. Yilan ChangMANUAL DIFF REQNONormalThe [facility] HospitalComment on above: Performed By: #### CBC #### [facility] [address] [place] [address] Dr. Bruce Hickman (RBC) [Entitic mass]27.3 fiFrscvk53.9-34.0The [facility] HospitalComment on above:Performed By: #### CBC #### [facility] [address] [place] [address] Dr. Bruce Hickman (RBC) [Mass/Vol]31.2 g/pRJjrxxk63.9-35.2The [facility] HospitalComment on above:Performed By: #### CBC #### [facility] [address] [place] [address] Dr. Bruce Hickman (RBC) [Entitic vol]87.5 gKXyqwkz45.0-94.0The [facility] HospitalComment on above:Performed By: #### CBC #### [facility] [address] [place] [address] Dr. Bruce Virk #0.5 103/ulNormal0.3-0.8The [facility] HospitalComment on above:Performed By: #### CBC #### [facility] [address] [place] [address] Dr. Bruce Correaocytes/100 WBC (Bld)7.6 %Normal1.7-12.0The [facility] Comment on above:Performed By: #### CBC #### [facility] [address] [place] [address] Dr. Bruce Rangel #4.2 103/ulNormal1.4-6.5The [facility] HospitalComment on above:Performed By: #### CBC #### [facility] [address] [place] [address] Dr. Bruce Francoisutrophils/100 WBC (Bld)58.5 %Thyawy40.0-75.0The [facility] HospitalComment on above:Performed By: #### CBC #### [facility] [address] [place] [address] Dr. Yilan ChangPlatelet mean volume (Bld) [Entitic vol]12.6 fLNormal9.5-13.5The [facility] HospitalComment on above:Performed By: #### CBC #### [facility] [address] [place] [address] Dr. Bruce NicholasPLT211 103/wlUuxkdl054-577Qob [facility] HospitalComment on above: Performed By: #### CBC #### [facility] [address] [place] [address] Dr. Bruce NicholasRBC5.13 106/ulNormal4.70-6.10The [facility] HospitalComment on above:Performed By: #### CBC #### [facility] [address] [place] [address] Dr. Bruce NicholasWBC7.1 103/ulNormal4.0-11.0The [facility] HospitalComment on above: Performed By: #### CBC #### [facility] [address] [place] [address] Dr. Bruce NicholasCUMONTSERRAT BLOODon 03-09-1027Osfwuzvbrzv examination of blood, cultureCulture Observations: NO GROWTH AT 5 DAYS.NormalThe [facility] HospitalComment on above:Performed By: #### CVDTBH #### [facility] [address] [place] [address] Dr. Bruce NicholasMicroscopic examination of blood, cultureCulture Observations: NO GROWTH AT 5 DAYS.NormalThe [facility] HospitalComment on above:Performed By: #### [id number] #### [facility] [address] [place] [address] Dr. Bruce NicholasCovid-19 PCR ([facility]PL[facility])on 95-46-4553QULG-CoV-2 (COVID-19) RNA KELLIE+probe Ql (Unsp spec)Not detectedNormalNOT DETECTEDThe [facility] Comment on above:Result Comment: When diagnostic testing is negative, the [...] for this test is supported by the [place] of Health and Human Service's declaration that circumstances exist to justify the emergency use of in vitro diagnostics for the detection and/or diagnosis of the virus that causes COVID-19. This EUA will remain in effect for the duration of the COVID-19 declaration justifying emergency of IVDs, unless it is terminated or revoked by the FDA (after which the test may no longer be used).Performed By: #### CVDTB #### [facility] [address] [place] [address] Dr. Bruce Crowe AND B AGon [id number] Health Lorain Hospital on above:Result Comment: Negative for Flu A protein angiten. Infection due to Flu A cannot be ruled out. FluA angiten in the sample may be below the detection limit of the test.Performed By: #### CBC #### [facility] [address] [place] [address] Dr. Bruce BelloUBNEGMercy Health Lorain Hospital on above: Result Comment: Negative for Flu B protein antigen. Infection due to Flu B cannot be ruled out. FluB antigen in the sample may be below the detection limit of the test.Performed By: #### CBC #### [facility] [address] [place] [address] Dr. Bruce Crowe AGNegativeNormalNEGATIVE SEE COMMENTThe [facility] on above:Performed By: #### CBC #### [facility] [address] [place] [address] Dr. Bruce Deshpande AGNegativeNormalNEGATIVE SEE COMMENTThe [facility] on above:Performed By: #### CBC #### [facility] [address] [place] [address] Dr. Bruce NicholasPOINT OF CARE GLUCOSEon 31-18-9160Uoufajs [Mass/Vol]190 mg/dL Critically jrxr09-942Hzz [facility] HospitalComment on above:Performed By: #### POCGLUC #### [facility] [address] [address] [address] Bruce NicholasGlucose [Mass/Vol]129 mg/dLCritically ssnb57-069Pwc [facility] HospitalComment on above:Performed By: #### CVDTBH #### [facility] [address] [address] [address] Bruce NicholasGlucose [Mass/Vol]110 mg/dLCritically yhgh95-801Vvp [facility] HospitalComment on above:Performed By: #### CBC #### [facility] [address] [place] [address] Dr. Bruce NicholasPROF CHEM 8 (BAS METB)on 30-32-2447Ylkwc gap [Moles/Vol]16.0 mmol/LNormalThe [facility] HospitalComment on above:Performed By: #### CBC #### [facility] [address] [place] [address] Dr. Bruce NicholasCalcium [Mass/Vol]9.4 mg/dLNormal8.5-10.1The [facility] Comment on above:Performed By: #### CBC #### [facility] [address] [place] [address] Dr. Bruce NicholasChloride [Moles/Vol]106 mmol/CIhcuqu72-656HyjThe [facility] Comment on above:Performed By: #### CBC #### [facility] [address] [place] [address] Dr. Bruce NicholasCO2 [Moles/Vol]25.2 mmol/RUgcnzq69.0-32.0The [facility] Comment on above:Performed By: #### CBC #### [facility] [address] [place] [address] Dr. Bruce NicholasCreatinine [Mass/Vol]1.09 mg/dLNormal0.70-1.30The [facility] HospitalComment on above:Performed By: #### CBC #### [facility] [address] [place] [address] Dr. Barrera ChangEGFR-AF BRUNEIAN>60Normal>=60The [facility] HospitalComment on above:Performed By: #### CBC #### [facility] [address] [place] [address] Dr. Bruce ColeyGFR-NON AF BRUNEIAN>60Normal>=60The [facility] HospitalComment on above:Performed By: #### CBC #### [facility] [address] [address] [address] Bruce NicholasGlucose [Mass/Vol]107 mg/dLCritically omie24-909Jxk [facility] HospitalComment on above:Performed By: #### CBC #### [facility] [address] [address] [address] Bruce NicholasPotassium [Moles/Vol]3.2 mmol/LCritically low3.5-5.1The [facility] HospitalComment on above:Performed By: #### CBC #### [facility] [address] [address] [address] Bruce NicholasSodium [Moles/Vol]144 mmol/XIkjunm642-225Uii [facility] Comment on above:Performed By: #### CBC #### [facility] [address] [address] [address] Bruce NicholasUrea nitrogen [Mass/Vol]20.0 mg/dLCritically high7.0-18.0The [facility] HospitalComment on above:Performed By: #### CBC #### [facility] [address] [address] [address] Bruce NicholasUrea nitrogen/Creatinine [Mass ratio]18.3 mg/mgNormalThe [facility] HospitalComment on above:Performed By: #### CBC #### [facility] [address] [place] [address] Dr. Bruce NicholasXR CHEST 1 Von 90-38-9856JH CHEST 1 VEXAMINATION: XR CHEST 1 V HISTORY: SHORTNESS OF BREATH COMPARISON: [...] Electronically authenticated by: LIZETH MCDONOUGH Date: 2022-11-05 08:05[facility] WO CONon [id number] [facility] WO CONEXAMINATION: CT TSPINE WO CON, [place] H[place]ORY: Lumbosacral stenosis , chronic [...] Electronically authenticated by: DON MURRAY Date: 2022-10-09 13:29[facility] SouthPOINT OF CARE GLUCOSEon 88-61-6300Kjpgfne [Mass/Vol]81 mg/dL Ebdryp22-069JgvThe Metrohealth SystemComment on above:Performed By: #### CVDTBH #### [facility] [address] [place], [place] [address] Dr. Bruce NicholasGlucose [Mass/Vol]69 mg/dLCritically aib10-038Sob [facility] HospitalComment on above:Performed By: #### CBC #### [facility] [address] [place], [place] [address] Dr. Bruce NicholasXR MYELOGRAM LSPINE EXPon 98-60-4089MB MYELOGRAM LSPINE EXP EXAMINATION: XR MYELOGRAM LSPINE [...] Electronically authenticated by: DON MURRAY Date: 2022-10-08 11:[address] [place], [place] [address]COVID-19on 23-28-6448OMAU-CoV-2 (COVID-19) RNA KELLIE+probe Ql (Unsp spec)Not detectedNormalNOT DETECTEDUT Health East Texas Jacksonville HospitalComment on above:Result Comment: Rapid NAAT: Negative results should be treated [...] authorized laboratories. Fact sheet for Healthcare Providers: https://www.fda.gov/media/666510/download Fact sheet for Patients: https://www.fda.gov/media/914504/download METHODOLOGY: Isothermal Nucleic Acid AmplificationPerformed By: #### COVPC #### [address] [address]XEGYX-66, Rapidon 22-44-5312OINO-CoV-2 (COVID-19) RNA KELLIE+probe Ql (Unsp spec)Not detectedNOT DETECTEDAvita Health SystemComment on above:Rapid NAAT: Negative results should be treated as [...] authorized laboratories. Fact sheet for Healthcare Providers: https://www.fda.gov/media/353484/download Fact sheet for Patients: https://www.fda.gov/media/671631/download METHODOLOGY: Isothermal Nucleic Acid Amplification Performed at [address] [address] [facility] Health SystemGLUCOSE POCon 42-61-4388Powbisj [Mass/Vol]100 mg/hBShpbqo24-579BdexhUT Health East Texas Jacksonville HospitalComment on above:Performed By: #### POCGL #### [address] [address]Svlkmvd [Mass/Vol]107 mg/fVPklxsi82-551FzyihUT Health East [place] [facility] Hospital Comment on above:Performed By: #### POCGL #### [address] [address]BHEY glucoseon 59-72-9398Fuiamij [Mass/Vol]100 mg/dL70 - 108 mg/dl [facility] Health SystemComment on above:Performed at [facility] [address] [place] [address]NqwbrAvita Health SystemGlucose [Mass/Vol]107 mg/dL70 - 108 mg/dlAvita Health SystemComment on above:Performed at [facility] [address] [id number] Health SystemGLUCOSE POCon 78-69-4261Yanngoo [Mass/Vol]90 mg/dL Mqxlmw47-602OfpizUT Health East [place] Jacksonville HospitalComment on above:Performed By: #### CBCND, PT, APTT, BMP, ANION, EGFR1 #### [facility] [address], [place] [address]Sowjblv [Mass/Vol]88 mg/zHImzves94-262OovkxUT Health [facility] [place] [facility] Hospital Comment on above:Performed By: #### POCGL #### [facility] [address] [place] [address]Unqnwuk [Mass/Vol]99 mg/bIRebpsn07-450BzgkkUT Health [facility] Hospital Comment on above:Performed By: #### POCGL #### [facility] [address] [address]AOTR glucoseon 73-63-4617Kumjwrw [Mass/Vol]90 mg/dL70 - 108 mg/dl [facility] Health SystemComment on above:Performed at [facility] [address] [place] [address]Vtyqk HealthGlucose [Mass/Vol]88 mg/dL70 - 108 mg/dlAvita Health SystemComment on above:Performed at [facility] [address] [place] [address]Jufkb HealthGlucose [Mass/Vol]99 mg/dL70 - 108 mg/dlWilson Health Health Comment on above:Performed at [facility] [address] [place] [address]Fwrcz HealthGLUCOSE POCon 00-21-4933Zinkuqo [Mass/Vol]116 mg/pIMbdu26-519 [facility] HospitalComment on above:Performed By: #### POCGL ####[facility] [address] [place], [place] [address]Hklxyic [Mass/Vol] 121 mg/kFRjjn84-923DykavUT Health East [place] Jacksonville HospitalComment on above:Performed By: #### POCGL #### [facility] [address] [place], [place] [address]Sratidm [Mass/Vol]89 mg/lAQgnsmt49-303LpbfcUT Health [facility] Comment on above:Performed By: #### CBCND, PT, APTT, BMP, ANION, EGFR1 #### [facility] [address] [place] [address]Nnsnnxa [Mass/Vol]95 mg/aVMwufxh36-974CjasmUT Health [facility] [place] [facility] Hospital Comment on above:Performed By: #### CBCND, PT, APTT, BMP, ANION, EGFR1 #### [address] [address]Ojfgcsa [Mass/Vol]85 mg/sOGrcynm13-716WyrrgUT Health [facility] Hospital Comment on above:Performed By: #### CBCND, PT, APTT, BMP, ANION, EGFR1 #### [address] [address]MYBU Glucoseon 00-33-1247Mtpmxom [Mass/Vol]121 mg/bJAplv76 - 108 mg/dlKettering Health Miamisburgcy HealthComment on above:Performed at [facility] [address] [place] [address]Ihldxdlmbnickr and review of laboratory resultsAbnormal [facility] HealthPOCT glucoseon 77-90-9980Mhssoks [Mass/Vol]116 mg/dLHigh 70 - 108 mg/dlWilson Health HealthComment on above:Performed at [facility] [address] [place] [address]Pmznugcwjicofd and review of laboratory results AbnormalMercy HealthMercy HealthGlucose [Mass/Vol]89 mg/dL70 - 108 mg/dlMercy HealthComment on above:Performed at [facility] [address] [place] [address]Mcmur HealthGlucose [Mass/Vol]95 mg/dL70 - 108 mg/dlKettering Health Miamisburgcy Health Comment on above:Performed at [facility] [address] [place] [address]Hhcoa HealthGlucose [Mass/Vol]85 mg/dL70 - 108 mg/dlMercy HealthComment on above:Performed at [facility] [address] [place] [address]Hriab HealthANION GAPon 57-04-0774Atpsh gap [Moles/Vol]8.0 mmol/LNormal8.0-16.0UT [facility] [place] [facility] HospitalComment on above:Result Comment: ANION GAP = Sodium - (Chloride + CO2)Performed By: #### CBCND, BMP, ANION, EGFR1 ####[facility] [address] [place], [place] [address]Vjnvq Gapon 02-15-2022 Anion gap [Moles/Vol]8.0 mmol/L8.0 - 16.0 meq/LMercy HealthComment on above: ANION GAP = Sodium -(Chloride + CO2) Performed at [facility] [address] [place] [address] BASIC METABOL PANELon 13-09-4021Qpjorrj [Mass/Vol]8.1 mg/dLLow8.5-10.5[facility] – TylerComment on above:Performed By: #### POCGL #### [facility] [address] [place] [address]Upefauex [Moles/Vol]105 mmol/SQbzaqc91-313JfycuUT Health East Texas Jacksonville HospitalComment on above:Performed By: #### POCGL #### [facility] [address] [place] [address]ME8 [Moles/Vol]25 mmol/KNqufuv64-19QugyjUT Health [facility] Comment on above:Performed By: #### POCGL #### [facility] [address] [place] [address]Udyzfwagnx [Mass/Vol]1.0 mg/dLNormal0.4-1.2[facility] – TylerComment on above:Performed By: #### POCGL #### [facility] [address] [place] [address]Zcbjmqm [Mass/Vol]101 mg/dGNjqsxt07-044HevpnUT Health [facility] Hospital Comment on above:Performed By: #### POCGL #### [facility] [address] [place] [address]Rzztmwbkv [Moles/Vol]3.9 mmol/LNormal3.5-5.2[facility] – TylerComment on above:Performed By: #### POCGL #### [facility] [address] [place] [address]Ljepyf [Moles/Vol]138 mmol/LEjhuzw617-398RzbqlUT Health East [place] Jacksonville HospitalComment on above:Performed By: #### POCGL #### [facility] [address] [place] [address]Ihcm nitrogen [Mass/Vol]19 mg/dLNormal7-22UT [facility] [place] [facility] HospitalComment on above:Performed By: #### POCGL #### [facility] [address] [place] [address]Miprj Metabolic Panelon 62-75-1512Szbhnhl [Mass/Vol]8.1 mg/dLLow 8.5 - 10.5 mg/dLAvita Health SystemComment on above:Performed at [facility] [address] [place] [address]Cqaxpvib [Moles/Vol]105 mmol/L98 - 111 meq/L [facility] Health SystemCO2 [Moles/Vol]25 mmol/L23 - 33 meq/LMercy HealthCreatinine [Mass/Vol]1 mg/dL0.4 - 1.2 mg/dLAvita Health SystemGlucose [Mass/Vol]101 mg/dL70 - 108 mg/dLAvita Health SystemPotassium [Moles/Vol]3.9 mmol/L3.5 - 5.2 meq/LMercy Health Sodium [Moles/Vol]138 mmol/L135 - 145 meq/LMercy HealthUrea nitrogen (BldV) [Mass/Vol]19 mg/dL7 - 22 mg/dLAvita Health SystemCBCon 59-41-7123Usdxdgudkam distribution width (RBC) [Ratio]13.3 %11.5 - 14.5 %Avita Health SystemErythrocyte distribution width (RBC) [Ratio]46.9 kVErby96.0 - 45.[address] [facility] Medical CenterHematocrit (Bld) [Volume fraction]30.1 %Low42.0 - 52.0 %[facility] Hemoglobin.gastrointestinal spec 1 Ql (Stl)9.5LowAvita Health SystemInterpretation and review of laboratory resultsAbnormalWestern Reserve HospitalH (RBC) [Entitic mass]30.4 pg 26.0 - 33.0 pgWestern Reserve HospitalHC (RBC) [Mass/Vol]31.6 g/dLLowWestern Reserve HospitalV (RBC) [Entitic vol]96.2 wFGhmu72.0 - 94.0 fLAvita Health SystemPlatelet mean volume (Bld) [Entitic vol]11.7 fL9.4 - 12.4 fLAvita Health SystemComment on above:Performed at [facility] [address] [place] [address]Gzgyncxfk (Bld) [#/Vol]159 10*3/[facility] HospitalRBC (Bld) [#/Vol]3.13 10*6/[facility] (Bld) [#/Vol] 4.3 10*3/[facility] Health CenterCB NO DIFFERENTIALon 02-15-2022 Erythrocyte distribution width (RBC) [Ratio]13.3 %Tgdcuf89.5-14.5SCH[facility] – TylerComment on above:Performed By: #### POCGL #### [facility] [address] [place] [address]Touuwhtpjq (Bld) [Volume fraction]30.1 %Low42.0-52.0[facility] [place] [facility] HospitalComment on above:Performed By: #### POCGL #### [facility] [address] [place] [address]Zrjysfghhk (Bld) [Mass/Vol]9.5 g/dLLow14.0-18.0[facility] [place] [facility] HospitalComment on above:Performed By: #### POCGL #### [facility] [address] [place] [address]MMH (RBC) [Entitic mass]30.4 ztYzeirj86.0-33.0[facility] [place] [facility] HospitalComment on above:Performed By: #### POCGL #### [facility] [address] [place] [address]YLPF (RBC) [Mass/Vol]31.6 g/dLLow32.2-35.5SCH[facility] – TylerComment on above:Performed By: #### POCGL #### [facility] [address] [place] [address] 268[address]TYM (RBC) [Entitic vol]96.2 iJFzgc11.0-94.0[facility] [place] [facility] HospitalComment on above:Performed By: #### POCGL #### [facility] [address] [place] [address]QRZDNIQF294 thou/du2Htxepb492-528IpfxmUT Health [facility] Comment on above:Performed By: #### POCGL #### [facility] [address], [place] [address]Kmvekcow mean volume (Bld) [Entitic vol]11.7 fLNormal9.4-12.4SCH[facility] – TylerComment on above:Performed By: #### POCGL #### [facility] [address], [place] [address]LPC6.13 mill/pv1Hgj2.70-6.10[facility] HospitalComment on above:Performed By: #### POCGL #### [facility] [address], [place] [address]UVL-EA38.9 sZXmqg00.0-45.0[facility] HospitalComment on above:Performed By: #### POCGL #### [facility] [employer] [facility] [address], [place] [address]WJE0.3 thou/ol3Akt5.8-10.8[facility] HospitalComment on above:Performed By: #### POCGL #### [facility] [employer] [facility] [address], [place] [address]OOG, ESTIMATEDon 74-54-0073LPB/1.73 sq M.predicted MDRD (S/P/Bld) [Vol rate/Area]75 mL/min/{1.73_m2}AbnormalUT Health East Texas Jacksonville HospitalComment on above:Result Comment: Stage Description GFR, ml/min/1.73 m2 - At increased [...] Alana. Internal Med., Vol. 139 (2) pg 137-147.Performed By: #### CBCND, BMP, ANION, EGFR1 ####[facility] [address] [place], [place] [address]RJTKFTZ POCon 36-16-4624Yserhml [Mass/Vol]85 mg/eORloxyl85-433AbubsUT Health East Texas Jacksonville HospitalComment on above:Performed By: #### POCGL #### [facility] [address], [place] [address]Pfujuxl [Mass/Vol]98 mg/qKVakeru69-109QqpyjUT Health [facility] Comment on above:Performed By: #### CBCND, PT, APTT, BMP, ANION, EGFR1 #### [facility] [address], [place] [address]Ordzjfn [Mass/Vol]101 mg/cZUiects03-410Vnnic[address] Comment on above:Performed By: #### POCGL ####[facility] [address] [place], [place] [address]Agwfdyo [Mass/Vol]89 mg/fXZrluep58-636Xgrga97 Cruz StreetComment on above:Performed By: #### POCGL #### [facility] [address] [place] [address]Awndivsblw Filtration Rate, Estimatedon 69-90-5423REZ/1.73 sq M.predicted MDRD (S/P/Bld) [Vol rate/Area]75 mL/min/{1.73_m2}Abnormal ml/min/1.10h2Wuonk HealthComment on above:Stage Description GFR, ml/min/1.73 m2 - At increased [...] Vol. 139 (2) pg 137-147. Performed at [facility] [address] [place] [address] No Panel Informationon 84-16-6091Fdqplcthwxeqmt and review of laboratory results AbnormalMer HealthWilson Health HealthPOCT glucoseon 12-76-8623Ysfrhhg [Mass/Vol]85 mg/dL70 - 108 mg/dlWilson Health HealthComment on above:Performed at [facility] [address] [place] [address]Aoyww HealthGlucose [Mass/Vol]98 mg/dL70 - 108 mg/dlWilson Health HealthComment on above:Performed at [facility] [address] [place] [address]Zthsj HealthGlucose [Mass/Vol]101 mg/dL70 - 108 mg/dl Mercy HealthComment on above:Performed at [facility] [address] [place] [address] 17[address]Tptxz HealthGlucose [Mass/Vol]89 mg/dL70 - 108 mg/dlWilson Health HealthComment on above:Performed at [facility] [address] [place] [address]Zqxam HealthGLUCOSE POCon 96-99-8238Nmhfjqp [Mass/Vol]90 mg/dL Rplqss74-531AkocjUT Health East [place] Jacksonville HospitalComment on above:Performed By: #### CBCND, PT, APTT, BMP, ANION, EGFR1 #### [facility] [address] [address]Cqoynoy [Mass/Vol]100 mg/kYGjxtrq61-651QaiiuUT Health [facility] Hospital Comment on above:Performed By: #### CBCND, PT, APTT, BMP, ANION, EGFR1 #### [facility] [address] [place] [address]Ewxrzrp [Mass/Vol]86 mg/oCWeeagi83-080ZagetUT Health [facility] Hospital Comment on above:Performed By: #### CBCND, PT, APTT, BMP, ANION, EGFR1 #### [facility] [address] [place] [address]Vttbble [Mass/Vol]94 mg/eTGhwpwb48-735GwlwnUT Health [facility] Comment on above:Performed By: #### POCGL ####[facility] [address] [place], [place] [address]Xrncjhc [Mass/Vol]79 mg/bOPglyic66-953Psmpi HealthComment on above:Performed at [facility] [address] [place] [address]22[address]Wcrynktxs By: #### POCGL #### [facility] [address] [place] [address]Ts Panel Informationon 26-81-6704Djtqu HealthPOCT glucoseon 58-61-6059Vevruko [Mass/Vol]90 mg/dL70 - 108 mg/dlMercy HealthComment on above: Performed at [facility] [address] [place] [address]Yggum Health Glucose [Mass/Vol]100 mg/dL70 - 108 mg/dlMer HealthComment on above:Performed at [facility] [address] [place] [address]Qtmay HealthGlucose [Mass/Vol]86 mg/dL70 - 108 mg/dlMercy HealthComment on above:Performed at [facility] [address] [place] [address] 03[address]Dzdgu HealthGlucose [Mass/Vol] 94 mg/dL70 - 108 mg/dlWilson Health HealthComment on above:Performed at [address] [address]KBOPISK POCon 27-94-1686Harrkkm [Mass/Vol]96 mg/aWFswxry37-718IlwtlUT Health East [place] Jacksonville HospitalComment on above: Performed By: #### POCGL #### [address] [address]Hnikqxt [Mass/Vol]85 mg/tDBqdzxb64-252OsaysUT Health [facility] Comment on above:Performed By: #### CBCND, PT, APTT, BMP, ANION, EGFR1 #### [address] [address]Tfegprm [Mass/Vol]95 mg/lUSugdkc13-276BsmogUT Health [facility] Comment on above:Performed By: #### CBCND, PT, APTT, BMP, ANION, EGFR1 #### [address] [address]Aroeqmh [Mass/Vol]82 mg/rYXnbkjg44-025SxvfnUT Health [facility] Comment on above:Performed By: #### CBCND, PT, APTT, BMP, ANION, EGFR1 #### [address] [address]GWOK glucoseon 38-89-0818Txsrszg [Mass/Vol]96 mg/dL70 - 108 mg/dl Wilson [facility] HealthComment on above:Performed at [facility] [address] [place] [address]Weqae HealthGlucose [Mass/Vol]85 mg/dL70 - 108 mg/dlMercy HealthComment on above:Performed at [facility] [address] [place] [address]Makid HealthGlucose [Mass/Vol]95 mg/dL70 - 108 mg/dlAvita Health System Comment on above:Performed at [facility] [address] [place] [address]Ouflp HealthGlucose [Mass/Vol]82 mg/dL70 - 108 mg/dlAvita Health SystemComment on above:Performed at [facility] [address] [place] [address]Jvfpl HealthANION GAPon 43-16-5849Tagti gap [Moles/Vol]9.0 mmol/LNormal8.0-16.0[facility] HospitalComment on above:Result Comment: ANION GAP = Sodium - (Chloride + CO2)Performed By: #### POCGL #### [facility] [address] [address]Nmwro Gapon 35-88-9183Yxhfl gap [Moles/Vol]9.0 mmol/L8.0 - 16.0 meq/LMercy [facility] Warren HospitalComment on above:ANION GAP = Sodium -(Chloride + CO2) Performed at [facility] [address] [place] [address] BASIC METABOL PANELon 06-40-3818Bgvfmch [Mass/Vol]8.2 mg/dLLow8.5-10.5[facility] – TylerComment on above:Performed By: #### POCGL #### [facility] [address] [place] [address]Hsohtlyn [Moles/Vol]105 mmol/UGjofzs35-395IyxkxUT Health East [place] Jacksonville HospitalComment on above:Performed By: #### POCGL #### [facility] [address] [place] [address] 325[address]FL3 [Moles/Vol]24 mmol/WDnfejf32-76WhdxsUT Health [facility] Comment on above:Performed By: #### POCGL #### [facility] [address] [place] [address]Nqxpotyvdq [Mass/Vol]0.9 mg/dLNormal0.4-1.2[facility] – TylerComment on above:Performed By: #### POCGL #### [facility] [address] [place] [address]Bzqidaj [Mass/Vol]66 mg/wJQix63-135YoohrUT Health [facility] Hospital Comment on above:Performed By: #### POCGL #### [facility] [address] [place] [address]Ewbnrxjyf [Moles/Vol]3.9 mmol/LNormal3.5-5.2[facility] – TylerComment on above:Performed By: #### POCGL #### [facility] [address] [place] [address] 44000Nklvwm [Moles/Vol]138 mmol/AIefqat446-562FsqbaUT Health East Texas Jacksonville HospitalComment on above:Performed By: #### POCGL #### [facility] [address] [place] [address] 56546Trfp nitrogen [Mass/Vol]17 mg/dLNormal7-22UT [facility] [place] Jacksonville HospitalComment on above:Performed By: #### POCGL #### [address] [address]Gwbzj Metabolic Panelon 27-99-7586Xlyzzet [Mass/Vol]8.2 mg/dLLow 8.5 - 10.5 mg/dLAvita Health SystemComment on above:Performed at [facility] [address] [place] [address] 23323Wbchglwm [Moles/Vol]105 mmol/L98 - 111 meq/L [facility] HealthCO2 [Moles/Vol]24 mmol/L23 - 33 meq/LMercy HealthCreatinine [Mass/Vol]0.9 mg/dL0.4 - 1.2 mg/dLMercy HealthGlucose [Mass/Vol]66 mg/dLLow70 - 108 mg/dLMercy HealthPotassium [Moles/Vol]3.9 mmol/L3.5 - 5.2 meq/LMercy Health Sodium [Moles/Vol]138 mmol/L135 - 145 meq/LMercy HealthUrea nitrogen (BldV) [Mass/Vol]17 mg/dL7 - 22 mg/dLMercy HealthCBCon 61-45-8639Gruoeklnfoj distribution width (RBC) [Ratio]13.8 %11.5 - 14.5 %Mercy HealthErythrocyte distribution width (RBC) [Ratio]49.3 pZJdxr07.0 - 45.[address] [facility] Medical CenterHematocrit (Bld) [Volume fraction]32.0 %Low42.0 - 52.0 %[facility] Hemoglobin.gastrointestinal spec 1 Ql (Stl)9.8[facility] ColumbusInterpretation and review of laboratory resultsAbnormalWestern Reserve HospitalH (RBC) [Entitic mass]29.8 pg 26.0 - 33.0 pgWestern Reserve HospitalHC (RBC) [Mass/Vol]30.6 g/dLCleveland Clinic Medina HospitalV (RBC) [Entitic vol]97.3 gKOovq07.0 - 94.[address] [facility] Medical CenterPlatelet mean volume (Bld) [Entitic vol]12.3 fL9.4 - 12.4 [facility] Medical CenterComment on above:Performed at [facility] [address] [place] [address] 93945Luyoobtye (Bld) [#/Vol]142 10*3/[facility] Memorial HospitalRBC (Bld) [#/Vol]3.29 10*6/[facility] HospitalWBC (Bld) [#/Vol] 5.1 10*3/[facility] Medical CenterCBC NO DIFFERENTIALon 36-35-8477Gvjsmmumego distribution width (RBC) [Ratio]13.8 %Sdegds89.5-14.5[facility] [place] Comment on above:Performed By: #### POCGL #### [employer] [facility] [address] [place] [address] 427[address]Heuekxdrus (Bld) [Volume fraction]32.0 %Low42.0-52.0UT [facility] [place] Jacksonville HospitalComment on above:Performed By: #### POCGL #### [employer] [facility] [address] [place] [address] 43475Oovweggseb (Bld) [Mass/Vol]9.8 g/dLLow14.0-18.0[facility] [place] [facility] HospitalComment on above:Performed By: #### POCGL #### [facility] [address] [place] [address] 40203XME (RBC) [Entitic mass]29.8 iqMwjzdu96.0-33.0[facility] [place] [facility] HospitalComment on above:Performed By: #### POCGL #### [address] [address]NVOY (RBC) [Mass/Vol]30.6 g/dLLow32.2-35.5[facility] – TylerComment on above:Performed By: #### POCGL #### [address] [address]IZS (RBC) [Entitic vol]97.3 eDMvdx65.0-94.0[facility] [place] [facility] HospitalComment on above:Performed By: #### POCGL #### [address] [address]EWRHQDCI779 thou/qb3Foqimg507-088FdfqhUT Health East [place] [facility] Hospital Comment on above:Performed By: #### POCGL #### [address] [address]Kahuvdfx mean volume (Bld) [Entitic vol]12.3 fLNormal9.4-12.4[facility] – TylerComment on above:Performed By: #### POCGL #### [address] [address]KPB0.29 mill/kf3Pyt6.70-6.10[facility] HospitalComment on above:Performed By: #### POCGL #### [address] [address]ONO-ZA56.3 hUNgej02.0-45.0[facility] HospitalComment on above:Performed By: #### POCGL #### [address] [address]MOX1.1 thou/eo3Poweti1.8-10.8[facility] Jacksonville HospitalComment on above:Performed By: #### POCGL #### [address] [address]JSS, ESTIMATEDon 58-21-3144MUL/1.73 sq M.predicted MDRD (S/P/Bld) [Vol rate/Area]85 mL/min/{1.73_m2}AbnormalUT Health East Texas Jacksonville HospitalComment on above:Result Comment: Stage Description GFR, ml/min/1.73 m2 - At increased [...] Alana. Internal Med., Vol. 139 (2) pg 137-147.Performed By: #### POCGL #### [facility] [address] [place], [place] [address]FXPNVJW POCon 64-54-2949Bxwzgij [Mass/Vol]95 mg/jNHpqywr29-846 [facility] HospitalComment on above:Performed By: #### POCGL #### [facility] [address] [place], [place] [address]Yidnsgb [Mass/Vol]84 mg/cIMqjwzx14-909CugamUT Health East [place] [facility] Hospital Comment on above:Performed By: #### CBCND, PT, APTT, BMP, ANION, EGFR1 #### [facility] [address] [place], [place] [address]Plnnfae [Mass/Vol]86 mg/tGLyvbnh88-387Qqioo[address] Comment on above:Performed By: #### POCGL ####[facility] [address] [place], [place] [address]Grqdkzb [Mass/Vol]90 mg/jJOoishs96-432KqfxhUT Health East [place] Jacksonville HospitalComment on above:Performed By: #### POCGL ####[facility] [address] [place], [place] [address]Ithgbbxrbn Filtration Rate, Estimatedon 01-57-0121QTF/1.73 sq M.predicted MDRD (S/P/Bld) [Vol rate/Area]85 mL/min/{1.73_m2}Abnormalml/min/1.66o2Nwytq HealthComment on above: Stage Description GFR, ml/min/1.73 m2 - At increased [...] Vol. 139 (2) pg 137-147. Performed at [address] [address] No Panel Informationon 27-95-2870Hmtzyiuowqgkhd and review of laboratory results AbnormalAscension Eagle River Memorial HospitalPOCT glucoseon 86-93-6485Vlujvky [Mass/Vol]95 mg/dL70 - 108 mg/dlAvita Health SystemComment on above:Performed at [address] StreetGlucose [Mass/Vol]84 mg/dL70 - 108 mg/dlAvita Health SystemComment on above:Performed at [address]Glucose [Mass/Vol]86 mg/dL70 - 108 mg/dl Avita Health SystemComment on above:Performed at [address]Glucose [Mass/Vol]90 mg/dL70 - 108 mg/dlAvita Health SystemComment on above:Performed at [address]CBCon 99-09-7904Bjhyvqnyvtl distribution width (RBC) [Ratio]13.7 %11.5 - 14.5 %Merc HealthErythrocyte distribution width (RBC) [Ratio]48.8 gEHwid79.0 - 45.0 fLAvita Health SystemHematocrit (Bld) [Volume fraction] 31.5 %Low42.0 - 52.0 %[facility] Health SystemHemoglobin.gastrointestinal spec 1 Ql (Stl)9.8 LowAvita Health SystemInterpretation and review of laboratory resultsAbnormalWestern Reserve HospitalH (RBC) [Entitic mass]30.2 pg26.0 - 33.0 pgWestern Reserve HospitalHC (RBC) [Mass/Vol]31.1 g/dLLowWestern Reserve HospitalV (RBC) [Entitic vol]97.2 wBMahr26.0 - 94.0 fLAvita Health SystemPlatelet mean volume (Bld) [Entitic vol]12.8 fLHigh9.4 - 12.4 fL [facility] Health SystemComment on above:Performed at [facility] [address] [place] [address]39Tqmpmroox (Bld) [#/Vol]122 10*3/[facility] Memorial HospitalRBC (Bld) [#/Vol]3.24 10*6/[facility] HospitalWBC (Bld) [#/Vol]5.7 10*3/[facility] Medical CenterCBC NO DIFFERENTIALon 33-20-7507Nylkisrdque distribution width (RBC) [Ratio]13.7 %Ajxozk69.5-14.5[facility] – TylerComment on above: Performed By: #### POCGL #### [facility] [address] [place] [address] 13214Uaebkfsqds (Bld) [Volume fraction]31.5 %Low42.0-52.0[facility] [place] [facility] HospitalComment on above:Performed By: #### POCGL #### [facility] [address] [place] [address] 15816Gjzepemoop (Bld) [Mass/Vol]9.8 g/dLLow14.0-18.0[facility] [place] [facility] HospitalComment on above:Performed By: #### POCGL #### [facility] [address] [place] [address] 821[address]EED (RBC) [Entitic mass]30.2 uqYwduuz42.0-33.0[facility] HospitalComment on above:Performed By: #### POCGL #### [facility] [address] [place] [address] 96343AGBQ (RBC) [Mass/Vol]31.1 g/dLLow32.2-35.5[facility] – TylerComment on above:Performed By: #### POCGL #### [facility] [address] [place] [address] 16585QOR (RBC) [Entitic vol]97.2 hRKjrq50.0-94.0[facility] HospitalComment on above:Performed By: #### POCGL #### [facility] [address] [address]XULKHGAD131 thou/yf9Tgu685-147MyitoUT Health East Texas Jacksonville HospitalComment on above:Performed By: #### POCGL #### [address] [address]Bhmlxeub mean volume (Bld) [Entitic vol]12.8 fLHigh9.4-12.4[facility] – TylerComment on above:Performed By: #### POCGL #### [address] [address]EDX6.24 mill/yp8Bpz2.70-6.10[facility] HospitalComment on above:Performed By: #### POCGL #### [address] [address]KDN-IH69.8 sGYqqc37.0-45.0[facility] HospitalComment on above:Performed By: #### POCGL #### [address] [address]KBT0.7 thou/pi6Lsuhto0.8-10.8[facility] HospitalComment on above:Performed By: #### POCGL #### [address] [address]ZIRJXJR POCon 79-04-8043Weiybpp [Mass/Vol]116 mg/sURdpg26-412RrmfuUT Health East Texas Jacksonville HospitalComment on above:Performed By: #### POCGL #### [address] [address]Mosdtsx [Mass/Vol]87 mg/hZTpyncy24-575OnbqdUT Health [facility] [place] [facility] Hospital Comment on above:Performed By: #### CBCND, PT, APTT, BMP, ANION, EGFR1 #### [address] [address]Fxqruih [Mass/Vol]90 mg/uRGjjror09-568KtjmiUT Health East [place] Jacksonville Hospital Comment on above:Performed By: #### POCGL #### [address] [address]Djasprf [Mass/Vol]112 mg/xUKbna35-434EijbqUT Health East [place] [facility] Hospital Comment on above:Performed By: #### CBCND, PT, APTT, BMP, ANION, EGFR1 #### [facility] [address] [place] [address] 23859QQPI Glucoseon 08-25-9921Jfwmyap [Mass/Vol]87 mg/dL70 - 108 mg/dl [facility] HealthComment on above:Performed at [facility] [address] [place] [address]Kxlfg HealthGlucose [Mass/Vol]90 mg/dL70 - 108 mg/dlWilson Health HealthComment on above:Performed at [facility] [address] [place] [address] 58[address]Pdpan HealthGlucose [Mass/Vol]112 mg/aQNxqe97 - 108 mg/dlWilson Health HealthComment on above:Performed at [facility] [address] [place] [address] 789[address]Nouaimxzbceefb and review of laboratory resultsAbnormalAscension Eagle River Memorial HospitalPOCT glucoseon 13-97-3331Usbajab [Mass/Vol]116 mg/iUNqgy09 - 108 mg/dlAvita Health SystemComment on above:Performed at [facility] [address] [place] [address] 72353Xvbkwyxqrsideh and review of laboratory results AbnormalMerUNC Health Johnston HealthVITAMIN B12 FOLATEon 47-57-8002Pgolczggw (Vitamin B12) [Mass/Vol]386 pg/bRKpushx733-047MdbreCHRISTUS Mother Frances Hospital – TylerComment on above:Performed By: #### CBCND, PT, APTT, BMP, ANION, EGFR1 #### [address] [address]JMTLDP5.5 ng/mLNormal4.8-24.2Saint [facility]ingham Memorial HospitalComment on above:Performed By: #### CBCND, PT, APTT, BMP, ANION, EGFR1 #### [facility] [address] [place] [address] 40262Zadtlit B12 & Folateon 61-40-8943Yppktiebk (Vitamin B12) [Mass/Vol]386 pg/mL211 - 911 pg/mLWilson Health HealthFolate7.5 ng/mL4.8 - 24.2 ng/mL [facility] Health SystemComment on above:Performed at [facility] [address] [place] [address] 23262ZhnzaAvita Health SystemCORTISOLon 79-38-7323DJJWKFHA MBBFIRWO08 Minute [facility] Medical CenterComment on above:Performed By: #### POCGL #### [employer] [address] [place] [address] 13987YJYC Complete 2D W Doppler W Coloron 74-53-2629Defliqxpjwjrc Echocardiography Report (TTE) Demographics Patient Name SUNNY Cox Gender Male MR # [id number] Race Ethnicity Room Number 0025 Date of Study 02/10/2022 Number Date of 1960 Referring Physician Bala Schrader MD Age 61 year(s) Life Skills Coach Lyn Prince [facility] Interpreting Beata Leahy MD Physician Procedure [...] MV A' Septal Velocity: (more content not included)...[facility] Armond Cuevas MD - 02/10/2022 Transthoracic Echocardiography Report (TTE) Demographics Patient Name SUNNY Cox Gender Male MR # [id number] Race Ethnicity Room Number 0025 Date of Study 02/10/2022 Number Date of 1960 Referring Physician Bala Schrader MD Age 61 year(s) Life Skills Coach Lyn Prince [facility] Interpreting Beata Leahy MD Physician Procedure [...] E/E' lateral: 7.08 MR Velocity: 463 cm/s [id number]%3d%3dEyeEm Work Phone: eCHO Complete 2D W Doppler W ColorOrdered By: Armond Cota on 16-79-6062JjozaEat Latin Phone: ECHOCARDIOGRAM COMPLETE 2D W DOPPLER W COLORon 76-09-0574IUKSHZKJWGWYGU COMPLETE 2D W DOPPLER W COLORTransthoracic Echocardiography Report (TTE) Demographics Patient Name SUNNY Cox Gender Male MR # [id number] Race Ethnicity Room Number 0025 Date of Study 02/10/2022 Number Date of 1960 Referring Physician Bala Schrader MD Age 61 year(s) Life Skills Coach Lyn Prince RDCS Interpreting Beata Leahy MD [...] E/E' lateral: 7.08 MR Velocity: 463 cm/s [email or web address]%4zEaf4uSPfEGcEStvUeZ8Z2tpHte%3d%3dNormalSCHRISTUS Mother Frances Hospital – TylerGLUCOSE POCon 61-80-8081Mwjfhrb [Mass/Vol]113 mg/rOJdsq39-255DlqhzUT Health East [place] Jacksonville HospitalComment on above:Performed By: #### CBCND, PT, APTT, BMP, ANION, EGFR1 #### [facility] [address] [place], [place] [address]Seteqqx [Mass/Vol]110 mg/wCPkjj87-315GjbftUT Health East [facility] Hospital Comment on above:Performed By: #### POCGL #### [facility] [address] [place] [address] 61140Imkegks [Mass/Vol]136 mg/gBQzwt73-648ZijiyUT Health East [facility] Hospital Comment on above:Performed By: #### CBCND, PT, APTT, BMP, ANION, EGFR1 #### [facility] [address] [place], [place] [address]Euylyqs [Mass/Vol]125 mg/dKSkud27-227MmlnxUT Health [facility] Hospital Comment on above:Performed By: #### POCGL ####[facility] [address] [place], [place] [address]KTMG Glucoseon 34-83-1829Brqxorg [Mass/Vol]113 mg/zNFguq28 - 108 mg/dlAvita Health SystemComment on above:Performed at [facility] [address] [place] [address] 70939Uefbmlibiacnya and review of laboratory resultsAbAurora Health CenterGlucose [Mass/Vol]110 mg/dL High70 - 108 mg/dlAvita Health SystemComment on above:Performed at [facility] [address] [place] [address] 57423Hmrxiqnfxzgvlz and review of laboratory resultsAbAurora Health CenterGlucose [Mass/Vol]136 mg/qBVyxb19 - 108 mg/dlAvita Health SystemComment on above:Performed at [facility] [address] [place] [address] 30802Syxmxrbpnxcrqz and review of laboratory resultsAbnoatrium health carolinas rehabilitation charlotte Iza [facility] South CampusGlucose [Mass/Vol]125 mg/pOCrak95 - 108 mg/dlAvita Health SystemComment on above:Performed at [facility] [address] [place] [address] 19726Lwsfanacntmqwr and review of laboratory resultsAbAurora Health CenterTSHon 01-57-6155Hujzssdgybzijy and review of laboratory resultsAbAdams County Hospital Qn0.354 m[IU]/LLowAvita Health SystemComment on above: Performed at [facility] [address] [address] [place] [address] THIRD GENERATIONon 72-45-5025YDY THIRD GENERATION0.354 uIU/mLLow0.400-4.200 [facility] HospitalComment on above:Performed By: #### POCGL #### [address] [address]NTO WITH DIFFERENTIALon 17-74-8547MMQ BASOPHILS0.0 thou/zj3Grqtyn 0.0-0.1[facility] – TylerComment on above:Performed By: #### CBCND, PT, APTT, BMP, ANION, EGFR1 #### [address] [address]MMD EOSINOPHILS0.1 thou/wv0Tboegy8.0-0.4[facility] – TylerComment on above:Performed By: #### CBCND, PT, APTT, BMP, ANION, EGFR1 #### [address] [address]UET IMMATURE GRANS (IG)0.02 thou/ru0Jgtdnx8.00-0.07[facility] HospitalComment on above:Performed By: #### CBCND, PT, APTT, BMP, ANION, EGFR1 #### [address] [address]JQW LYMPHOCYTES1.3 thou/fz6Uhibma6.0-4.8[facility] HospitalComment on above:Performed By: #### CBCND, PT, APTT, BMP, ANION, EGFR1 #### [address] [address]VMT MONOCYTES0.6 thou/xn9Exmwfj1.4-1.3[facility] Comment on above:Performed By: #### CBCND, PT, APTT, BMP, ANION, EGFR1 #### [address] [address]KXB NEUTROPHILS4.3 thou/tn0Uzyfex4.8-7.7[facility] HospitalComment on above:Performed By: #### CBCND, PT, APTT, BMP, ANION, EGFR1 #### [address] [address]Qxjmcezgv/100 WBC (Bld)0.3 %[facility] Comment on above:Performed By: #### CBCND, PT, APTT, BMP, ANION, EGFR1 #### [address] [address]Jeylawqmrzc/100 WBC (Bld)1.4 %[facility] Comment on above:Performed By: #### CBCND, PT, APTT, BMP, ANION, EGFR1 #### [address] [address]Rpyircmvkng distribution width (RBC) [Ratio]13.3 %Rdpdoc48.5-14.5 [facility] HospitalComment on above:Performed By: #### CBCND, PT, APTT, BMP, ANION, EGFR1 #### [address] [address]Byiuckufsd (Bld) [Volume fraction]34.3 %Low42.0-52.0[facility] HospitalComment on above:Performed By: #### CBCND, PT, APTT, BMP, ANION, EGFR1 #### [address] [address]Gsnxvtwvtj (Bld) [Mass/Vol]10.8 g/dLLow14.0-18.0[facility] HospitalComment on above:Performed By: #### CBCND, PT, APTT, BMP, ANION, EGFR1 #### [address] [address]XQMLICIX GRANS (IG)0.3 %[facility] CenterComment on above:Performed By: #### CBCND, PT, APTT, BMP, ANION, EGFR1 #### [address] [address]Qvsrsxsehel/100 WBC (Bld)20.2 %[facility] Comment on above:Performed By: #### CBCND, PT, APTT, BMP, ANION, EGFR1 #### [address] (RBC) [Entitic mass]30.2 ohZkyoxk36.0-33.0[facility] HospitalComment on above:Performed By: #### CBCND, PT, APTT, BMP, ANION, EGFR1 #### [place], [place] [address]MCHC (RBC) [Mass/Vol]31.5 g/dLLow32.2-35.5SCH[facility] Hospital – TylerComment on above:Performed By: #### CBCND, PT, APTT, BMP, ANION, EGFR1 #### [place], [place] [address]MCV (RBC) [Entitic vol]95.8 zKOhot19.0-94.0[facility] HospitalComment on above:Performed By: #### CBCND, PT, APTT, BMP, ANION, EGFR1 #### [address] [address]Dvlzmctgf/100 WBC (Bld)9.5 %[facility] Comment on above:Performed By: #### CBCND, PT, APTT, BMP, ANION, EGFR1 #### [address] [address]Qcsqcenixrg/100 WBC (Bld)68.3 %[facility] Comment on above:Performed By: #### CBCND, PT, APTT, BMP, ANION, EGFR1 #### [address] [address]ULKR9 /100 wbcNormalSCHRISTUS Mother Frances Hospital – TylerComment on above: Performed By: #### CBCND, PT, APTT, BMP, ANION, EGFR1 #### [address] [address]NHASGJWL72 thou/ue4Mze661-764IiokyUT Health East Texas Jacksonville HospitalComment on above:Performed By: #### CBCND, PT, APTT, BMP, ANION, EGFR1 #### [address] [address]Ixqtrcfj mean volume (Bld) [Entitic vol]12.9 fLHigh9.4-12.4[facility] – TylerComment on above:Performed By: #### CBCND, PT, APTT, BMP, ANION, EGFR1 #### [address] [address]UGK7.58 mill/we7Nfz4.70-6.10[facility] HospitalComment on above:Performed By: #### CBCND, PT, APTT, BMP, ANION, EGFR1 #### [address] [address]HRA-AV13.0 vOGodm56.0-45.0[facility] HospitalComment on above:Performed By: #### CBCND, PT, APTT, BMP, ANION, EGFR1 #### [address] [address]NLF1.3 thou/xb6Qymaae6.8-10.8[facility] HospitalComment on above:Performed By: #### CBCND, PT, APTT, BMP, ANION, EGFR1 #### [address] [address]VAH with Auto Differentialon 91-06-6760Nncgexdbo (Bld) [#/Vol]0.0 10*3/uLMercy HealthBasophils/100 WBC (Bld)0.3 %Mercy HealthEosinophils Absolute 0.1Mercy HealthEosinophils/100 WBC (Bld)1.4 %[facility] Health SystemErythrocyte distribution width (RBC) [Ratio]13.3 %11.5 - 14.5 %[facility] Health SystemErythrocyte distribution width (RBC) [Ratio]47 iKPknh27.0 - 45.0 fLAvita Health SystemHematocrit (Bld) [Volume fraction]34.3 %Low42.0 - 52.0 %[facility] Hemoglobin.gastrointestinal spec 1 Ql (Stl)10.8LowAvita Health SystemImmature Grans (Abs)0.02[facility] granulocytes/100 WBC (Bld)0.3 %[facility] Interpretation and review of laboratory resultsAbnormalAvita Health SystemLymphocytes Absolute1.3[facility] HospitalLymphocytes/100 WBC (Bld)20.2 %[facility] Health SystemMCH (RBC) [Entitic mass]30.2 pg26.0 - 33.0 pgWestern Reserve HospitalHC (RBC) [Mass/Vol]31.5 g/dLLow Western Reserve HospitalV (RBC) [Entitic vol]95.8 yMBcme43.0 - 94.0 [facility] Monocytes Absolute0.6Mercy HealthMonocytes/100 WBC (Bld)9.5 %[facility] Health SystemnRBC0 /100 wbcAvita Health SystemComment on above:Performed at [facility] [address] [place] [address]Xuxmrzhv mean volume (Bld) [Entitic vol]12.9 fLHigh 9.4 - 12.4 fLWilson Health HealthPlatelets (Bld) [#/Vol]98 10*3/uLLowWilson Health HealthRBC (Bld) [#/Vol]3.58 10*6/uLChildren's Hospital of ColumbusSegmented neutrophils/100 WBC (Bld)68.3 %[facility] Health SystemSegs Absolute4.3Mercy HealthWBC (Bld) [#/Vol]6.3 10*3/uLSelect Medical Cleveland Clinic Rehabilitation [facility], [facility] HealthCORTISOLon 96-29-8513JFHTUOXQ59.55 ug/dLNormalSCHRISTUS Mother Frances Hospital – TylerComment on above:Result Comment: Reference ranges AM serum (7-9AM): 4.82-19.5 ug/dl PM serum (3-5PM): 2.47-11.9 ug/dlPerformed By: #### POCGL #### [address] [address]LZYBCMLW82.14 ug/dLNoThe Hospitals of Providence Horizon City CampusComment on above:Result Comment: Reference ranges AM serum (7-9AM): 4.82-19.5 ug/dl PM serum (3-5PM): 2.47-11.9 ug/dlPerformed By: #### POCGL #### [address] [address]EUBTNODJ EDSIEOOS52 Galion HospitalComment on above:Performed By: #### POCGL #### [address] [address]SRUHJJLH SPECIMENBaseECU Health Roanoke-Chowan HospitalComment on above:Performed By: #### POCGL #### [facility] [employer] [address] [address]LHZZCNBN5.85 ug/dLSaint Mark's Medical CenterComment on above:Result Comment: Reference ranges AM serum (7-9AM): 4.82-19.5 ug/dl PM serum (3-5PM): 2.47-11.9 ug/dlPerformed By: #### POCGL #### [facility] [employer] [address] [address]KDMBFMMO SPECIMENAM [facility] Comment on above:Performed By: #### POCGL #### [facility] [employer] [address] [address]JOOEDQFM6.35 ug/dLSaint Mark's Medical CenterComment on above:Result Comment: Reference ranges AM serum (7-9AM): 4.82-19.5 ug/dl PM serum (3-5PM): 2.47-11.9 ug/dlPerformed By: #### POCGL #### [address] [address]Hbkosogz Totalon 79-91-9336Ociblehr16.14 ug/dLWilson Health HealthComment on above:Reference ranges AM serum (7-9AM): 4.82-19.5 ug/dl PM serum (3-5PM): 2.47-11.9 ug/dl Cortisol Collection Info60 MinuteWilson Health HealthComment on above:Performed at [address] [address]Artem PtciayGlhjfrww69.55 ug/dLWilson Health HealthComment on above:Reference ranges AM serum (7-9AM): 4.82-19.5 ug/dl PM serum (3-5PM): 2.47-11.9 ug/dl Cortisol Collection Info30 MinuteWilson Health HealthComment on above:Performed at [address] [address]Nxegz HealthCortisol4.35 ug/dL [facility] HealthComment on above:Reference ranges AM serum (7-9AM): 4.82-19.5 ug/dl PM serum (3-5PM): 2.47-11.9 ug/dl Cortisol Collection InfoAM SpecimenWilson Health HealthComment on above:Performed at [address] [address]Hqbtu HealthCortisol, 0 minuteson 04-03-7080Yrkfebtz5.85 ug/dLWilson Health HealthComment on above:Reference ranges AM serum (7-9AM): 4.82-19.5 ug/dl PM serum (3-5PM): 2.47-11.9 ug/dl Cortisol Collection InfoBaselineWilson Health HealthComment on above:Performed at [address] [address]Wtpic HealthGLUCOSE POCon 97-05-2525Cgsvrol [Mass/Vol]154 mg/yMAcrq79-132XbopaUT Health [facility] Comment on above:Performed By: #### POCGL #### [address] [address]Dvzuibq [Mass/Vol]167 mg/uFFass45-502MgdixUT Health [facility] Comment on above:Performed By: #### CBCND, PT, APTT, BMP, ANION, EGFR1 #### [address] [address]Wctlybc [Mass/Vol]121 mg/xDRifc32-597UxkusUT Health [facility] Comment on above:Performed By: #### POCGL #### [facility] [address] [place] [address] 348[address]Gllsduw [Mass/Vol]106 mg/zZVgfhow10-740KlytxUT Health [facility] Comment on above:Performed By: #### POCGL #### [facility] [address] [place] [address]Cckqkay [Mass/Vol]117 mg/wBVyox22-640OudvvUT Health [facility] Comment on above:Performed By: #### POCGL #### [facility] [address] [place] [address]OZVG Glucoseon 49-42-0609Wsbeutm [Mass/Vol]154 mg/jAIfdz66 - 108 mg/dlAvita Health SystemComment on above:Performed at [facility] [address] [place] [address] 264[address]Atuywbnpwhhwmu and review of laboratory resultsAbnoAgnesian HealthCareGlucose [Mass/Vol]167 mg/lYScbq61 - 108 mg/dlAvita Health SystemComment on above:Performed at [facility] [address] [place] [address]Efqxfaodqwtmdj and review of laboratory resultsAbnoGundersen St Joseph's Hospital and ClinicsGlucose [Mass/Vol]121 mg/qNZrmy33 - 108 mg/dlWilson Health Health Comment on above:Performed at [facility] [address] [place] [address] 43[address]Jhjnlajfkqlhhx and review of laboratory resultsAbSumma Health Barberton Campus HealthGlucose [Mass/Vol]106 mg/dL70 - 108 mg/dlAvita Health SystemComment on above: Performed at [facility] [address] [place] [address] 98060SdhidAvita Health System Glucose [Mass/Vol]117 mg/fFWewz15 - 108 mg/dlAvita Health SystemComment on above: Performed at [facility] [address] [place] [address] Interpretation and review of laboratory resultsAbAurora Health Center ANION GAPon 97-84-4662Zajzj gap [Moles/Vol]9.0 mmol/LNormal8.0-16.0UT [facility] [place] [facility] HospitalComment on above:Result Comment: ANION GAP = Sodium -(Chloride + CO2)Performed By: #### CBCND, PT, APTT, BMP, ANION, EGFR1 #### [facility] [address] [place] [address]Kdxqj Gapon 87-14-4047Iitbe gap [Moles/Vol]9.0 mmol/L8.0 - 16.0 meq/LMercy HealthComment on above:ANION GAP = Sodium -(Chloride + CO2) Performed at [facility] [address] [place] [address] Anion gap [Moles/Vol]6.0 mmol/LLow8.0 - 16.0 meq/LMercy HealthComment on above: ANION GAP = Sodium -(Chloride + CO2) Performed at [facility] [address] [address] BASIC METABOL PANELon 14-98-0101Jixsote [Mass/Vol]7.8 mg/dLLow8.5-10.5SCH[facility] – TylerComment on above:Performed By: #### CBCND, PT, APTT, BMP, ANION, EGFR1 #### [facility] [address] [place] [address]Snwbipxg [Moles/Vol]108 mmol/YMmoctb17-175JznwaUT Health [facility] [place] Jacksonville HospitalComment on above:Performed By: #### CBCND, PT, APTT, BMP, ANION, EGFR1 #### [facility] [address] [address]MR7 [Moles/Vol]21 mmol/ILqw92-62YidazUT Health East [place] Jacksonville HospitalComment on above:Performed By: #### CBCND, PT, APTT, BMP, ANION, EGFR1 #### [facility] [address] [place] [address]Sdgqmqvwoq [Mass/Vol]1.0 mg/dLNormal0.4-1.2SCH[facility] Hospital – TylerComment on above:Performed By: #### CBCND, PT, APTT, BMP, ANION, EGFR1 #### [facility] [address] [place] [address] 45[address]Dpbfqkz [Mass/Vol]112 mg/fBFfok08-848CkuduUT Health [facility] Comment on above:Performed By: #### CBCND, PT, APTT, BMP, ANION, EGFR1 #### [address] [address]Tlkdsosbw [Moles/Vol]4.3 mmol/LNormal3.5-5.2SCH[facility] Hospital – TylerComment on above:Performed By: #### CBCND, PT, APTT, BMP, ANION, EGFR1 #### [address] [address]Eqwmsa [Moles/Vol]138 mmol/QUnaksb377-509OkuyqUT Health East [place] Jacksonville HospitalComment on above:Performed By: #### CBCND, PT, APTT, BMP, ANION, EGFR1 #### [address] [address]Xyxz nitrogen [Mass/Vol]12 mg/dLNormal7-22UT [facility] HospitalComment on above:Performed By: #### CBCND, PT, APTT, BMP, ANION, EGFR1 #### [address] [address]Lcbzb Metabolic Panelon 14-30-4390Ojqymls [Mass/Vol]7.8 mg/dLLow 8.5 - 10.5 mg/dLMercy HealthComment on above:Performed at [facility] [address] [address]Eswwzeaq [Moles/Vol]108 mmol/L98 - 111 meq/L Mercy HealthCO2 [Moles/Vol]21 mmol/LLow23 - 33 meq/LMercy HealthCreatinine [Mass/Vol]1 mg/dL0.4 - 1.2 mg/dLMercy HealthGlucose [Mass/Vol]112 mg/tZMefy96 - 108 mg/dLMercy HealthPotassium [Moles/Vol]4.3 mmol/L3.5 - 5.2 meq/LMercy Health Sodium [Moles/Vol]138 mmol/L135 - 145 meq/LMercy HealthUrea nitrogen (BldV) [Mass/Vol]12 mg/dL7 - 22 mg/dLMercy HealthCalcium [Mass/Vol]7.5 mg/dLLow8.5 - 10.5 mg/dLMercy HealthComment on above:Performed at [facility] [address] [place], [place] [address]Eowaivst [Moles/Vol]109 mmol/L98 - 111 meq/LMercy HealthCO2 [Moles/Vol]22 mmol/LLow23 - 33 meq/LMercy HealthCreatinine [Mass/Vol] 0.8 mg/dL0.4 - 1.2 mg/dLAvita Health SystemGlucose [Mass/Vol]104 mg/dL70 - 108 mg/dL [facility] HealthPotassium [Moles/Vol]3.8 mmol/L3.5 - 5.2 meq/LMercy HealthSodium [Moles/Vol]137 mmol/L135 - 145 meq/LMercy HealthUrea nitrogen (BldV) [Mass/Vol] 12 mg/dL7 - 22 mg/dLAvita Health SystemCBCon 42-17-2537Zmnwpzusllc distribution width (RBC) [Ratio]13.4 %11.5 - 14.5 %Avita Health SystemErythrocyte distribution width (RBC) [Ratio]48.5 yZEbnw60.0 - 45.0 fLAvita Health SystemHematocrit (Bld) [Volume fraction] 33.5 %Low42.0 - 52.0 %Avita Health SystemHemoglobin.gastrointestinal spec 1 Ql (Stl) 10.2LowAvita Health SystemInterpretation and review of laboratory resultsAbnormalWestern Reserve HospitalH (RBC) [Entitic mass]30.1 pg26.0 - 33.0 pgWestern Reserve HospitalHC (RBC) [Mass/Vol]30.4 g/dLLowWestern Reserve HospitalV (RBC) [Entitic vol]98.8 sLMaqt53.0 - 94.0 fLAvita Health SystemPlatelet mean volume (Bld) [Entitic vol]12.9 fLHigh9.4 - 12.4 fL Avita Health SystemComment on above:Performed at [facility] [address] [place], [place] [address]Sxmsmaqoq (Bld) [#/Vol]89 10*3/uLChildren's Hospital of ColumbusRBC (Bld) [#/Vol]3.39 10*6/uLChildren's Hospital of ColumbusWBC (Bld) [#/Vol]6.2 10*3/uLAscension Eagle River Memorial HospitalCBC NO DIFFERENTIALon 63-26-1708Wmbvhxahtxb distribution width (RBC) [Ratio]13.4 %Hqepyf72.5-14.5SCH[facility]ST[facility] Hospital – TylerComment on above: Performed By: #### POCGL #### [address] [address]Hjokwpgvoa (Bld) [Volume fraction]33.5 %Low42.0-52.0UT [facility] [place] [facility] HospitalComment on above:Performed By: #### POCGL #### [address] [address]Qjsapblkrk (Bld) [Mass/Vol]10.2 g/dLLow14.0-18.0UT [facility] [place] [facility] HospitalComment on above:Performed By: #### POCGL #### [address] [address]QDX (RBC) [Entitic mass]30.1 juQnicgu84.0-33.0[facility] [place] [facility] HospitalComment on above:Performed By: #### POCGL #### [address] [address]LYPC (RBC) [Mass/Vol]30.4 g/dLLow32.2-35.5SCH[facility] Hospital – TylerComment on above:Performed By: #### POCGL #### [address] [address]FJD (RBC) [Entitic vol]98.8 rAOnzf24.0-94.0[facility] [place] [facility] HospitalComment on above:Performed By: #### POCGL #### [address] [address]PHXHEKFN71 thou/qt7Iyc094-564ZgrerUT Health East [place] Jacksonville HospitalComment on above:Performed By: #### POCGL #### [address] [address]Gfglpgvk mean volume (Bld) [Entitic vol]12.9 fLHigh9.4-12.4SCH[facility] Hospital – TylerComment on above:Performed By: #### POCGL #### [address] [address]PXH1.39 mill/sb2Ien4.70-6.10[facility] [place] [facility] HospitalComment on above:Performed By: #### POCGL #### [facility] [address] [place] [address]CZQ-ZI50.5 sXLfva20.0-45.0[facility] [place] [facility] HospitalComment on above:Performed By: #### POCGL #### [facility] [address] [place] [address]XUJ7.2 thou/nc2Ewbhwe8.8-10.8[facility] [place] [facility] HospitalComment on above:Performed By: #### POCGL #### [facility] [address] [place] [address]SYB 12 LeadOrdered By: Susan Carrion on 08-51-7578Ncllzo Zvpo21CZG [facility] Medical CenterSonar.me Work Phone: [phone] Zpci20ptvczsqEkzjb Health Work Phone: [phone]-R Auldlrol357 [employer] ([employer]) Work Phone: [phone]-T Znhrhxju414 [employer] Work Phone: [phone] Hwjudkgv10 [employer] ([employer]) Work Phone: [phone] Calculation (Bazett)440 [employer] ([employer]) Work Phone: [phone] [place]-22degreesKettering Health MiamisburgCITIC Information Development Work Phone: [phone] Outc5ntcipbcOrhbh Health Work Phone: [phone] Rckp68BUKRmmhi Health Work Phone: [phone] Information Development Work Phone: [phone] 12 Leadon 15-95-5327Zgcdw bradycardia Otherwise normal ECG When compared with ECG of 23-JAN-2022 11:32, No significant change was found Confirmed by SUSAN CARRION ([id number]) on 02/08/2022 10:35:59 AMWCOH STR Susan Mesa MD - 02/08/2022 Sinus bradycardia Otherwise normal ECG When compared with ECG of 23-JAN-2022 11:32, No significant change was found Confirmed by SUSAN CARRION ([id number]) on 02/08/2022 10:35:59 AMKettering Health MiamisburgCITIC Information Development Work Phone: ekg 12-LEADon 82-81-2590KBE 12-LEAD55 [phone] Sinus bradycardia Otherwise normal ECG When compared with ECG of 23-JAN-2022 11:32, No significant change was found Confirmed by SUSAN CARRION ([id number]) on 02/08/2022 10:35:59 AM [email or web address]&Date=&Time=09%3a14%3a41%3a00&TestType=ECG&Site=3&OutputType=PDF&Ext=PDFNormal [facility] [place] [facility] HospitalGFR, ESTIMATEDon 29-01-3003NLS/1.73 sq M.predicted MDRD (S/P/Bld) [Vol rate/Area]75 mL/min/{1.73_m2}AbnormalSaBaylor Scott & White Medical Center – Round RockComment on above:Result Comment: Stage Description GFR, ml/min/1.73 m2 - At increased [...] Alana. Internal Med., Vol. 139 (2) pg 137-147.Performed By: #### CBCND, PT, APTT, BMP, ANION, EGFR1 #### [facility] [address] [place], [place] [address]ZHPRYWC POCon 50-79-8814Utmndxl [Mass/Vol]71 mg/sRBftqaa94-912 [facility] HospitalComment on above:Performed By: #### POCGL ####[facility] [address] [place], [place] [address]Diwgeyc [Mass/Vol] 111 mg/aVYrit01-136CenzuUT Health East [place] Jacksonville HospitalComment on above:Performed By: #### CBCND, PT, APTT, BMP, ANION, EGFR1 #### [address] [address]Jvmjykh [Mass/Vol]66 mg/eEDfe38-822Lqiir[address] [place] [address] Comment on above:Performed By: #### POCGL #### [address] [address]Qldaaxq [Mass/Vol]116 mg/pXCgvv75-731Mdiar[address] Comment on above:Performed By: #### CBCND, PT, APTT, BMP, ANION, EGFR1 #### [address] [address]Tdntubt [Mass/Vol]68 mg/mFFxr73-143Crhwr[address] Comment on above:Performed By: #### POCGL #### [address] [address]Pdabuvh [Mass/Vol]101 mg/rZYrxhmq49-524Ukqmw[address] [place] [address] Comment on above:Performed By: #### CBCND, PT, APTT, BMP, ANION, EGFR1 #### [address] [address]Mhzhadq [Mass/Vol]126 mg/xIEidg22-004Kinin[address] Comment on above:Performed By: #### POCGL #### [address] [address]Dojmivcnoj Filtration Rate, Estimatedon 81-37-4201DBU/1.73 sq M.predicted MDRD (S/P/Bld) [Vol rate/Area]75 mL/min/{1.73_m2}Abnormal ml/min/1.89n0Qecqf HealthComment on above:Stage Description GFR, ml/min/1.73 m2 - At increased [...] Vol. 139 (2) pg 137-147. Performed at [facility] [place] [address] GFR/1.73 sq M.predicted MDRD (S/P/Bld) [Vol rate/Area]mL/min/{1.73_m2} ml/min/1.10n2Oilyk HealthComment on above:Stage Description GFR, ml/min/1.73 m2 - At increased [...] Vol. 139 (2) pg 137-147. Performed at [facility] [address] [place], [place] [address] HGB,HCTon 79-90-7328Hgsljrmdwu (Bld) [Volume fraction]37.3 %Low42.0-52.0[facility] HospitalComment on above:Performed By: #### POCGL #### [facility] [address] [place] [address]Qbvggwxnfb (Bld) [Mass/Vol]11.4 g/dLLow14.0-18.0[facility] HospitalComment on above:Performed By: #### POCGL #### [facility] [address] [place] [address]Rmodtvpzdw and Hematocriton 86-93-5268Zkaoqtsivy (Bld) [Volume fraction]37.3 %Low42.0 - 52.0 %Avita Health SystemComment on above:Performed at [facility] [address] [address]Brnqmwfxxj.gastrointestinal spec 1 Ql (Stl)11.4[facility] HealthInterpretation and review of laboratory resultsAbnormalAscension Eagle River Memorial HospitalHemoglobin and hematocrit, bloodon 42-43-3632Ofcyuqgdwh (Bld) [Volume fraction]36.9 %Low42.0 - 52.0 %[employer] Comment on above:Performed at [facility] [address] [place] [address]Kcwvvmwayz.gastrointestinal spec 1 Ql (Stl)11.6LowAvita Health System Interpretation and review of laboratory resultsAbnormCleveland Clinic Marymount Hospital Health No Panel Informationon 15-07-7240Tqcldlusleydfy and review of laboratory results AbnormalSelect Medical [facility], [facility] HealthInterpretation and review of laboratory results AbnormalAscension Eagle River Memorial HospitalPOCT Glucoseon 74-17-8940Qggohbn [Mass/Vol]71 mg/dL70 - 108 mg/dlAvita Health SystemComment on above:Performed at [facility] [address] [place] [address] [place], [place] [address]Glucose [Mass/Vol]111 mg/uSAfxo55 - 108 mg/dlAvita Health SystemComment on above:Performed at [facility] [address] [place] [address]77[address]Luwrfkifnujuoy and review of laboratory results AbnormalAscension Eagle River Memorial HospitalGlucose [Mass/Vol]66 mg/dLLow70 - 108 mg/dlAvita Health SystemComment on above:Performed at [facility] [address] [place] [address]Pgehzzphaiwxrr and review of laboratory resultsAbnoGundersen St Joseph's Hospital and ClinicsGlucose [Mass/Vol]116 mg/aQXtax14 - 108 mg/dlWilson Health centrose Comment on above:Performed at [facility] [address] [place] [address]Ewjhwvpvlezhgz and review of laboratory resultsAbnormWisconsin Heart Hospital– WauwatosaGlucose [Mass/Vol]68 mg/dLLow70 - 108 mg/dlAvita Health SystemComment on above: Performed at [facility] [address] [place] [address] Interpretation and review of laboratory resultsAbnoGundersen St Joseph's Hospital and Clinics Glucose [Mass/Vol]101 mg/dL70 - 108 mg/dlAvita Health SystemComment on above:Performed at [facility] [address] [place] [address]AjxbwAvita Health SystemGlucose [Mass/Vol]126 mg/fWQklr20 - 108 mg/dlAvita Health SystemComment on above:Performed at [facility] [address] [place] [address]Kcrdohetrlwjcb and review of laboratory resultsAbnoGundersen St Joseph's Hospital and ClinicsPROCALCITONINon 02-08-2022 PROCALCITONIN0.08 ng/mLNormal0.01-0.09[facility] [place] [facility] HospitalComment on above:Result Comment: Suspected Sepsis: <0.50 ng/mL Low likelihood of [...] entered into the Change in Procalcitonin Calculator (Cooleaf.hbjxwi-qzy-rbrlddhjcn.MWHS) to determine the patient's Mortality Risk Prognosis. In healthy neonates, plasma Procalcitonin (PCT) concentrations increase gradually after , reaching peak values at about 24 hours of age then decrease to normal values below 0.5 ng/mL by 48-72 hours of age.Performed By: #### POCGL #### [employer] [address] [place] [address]Unmysauuczjbhnm 92-03-9087Zepllllbotdwt2.08 ng/mL0.01 - 0.09 ng/mL Avita Health SystemComment on above:Suspected Sepsis: <0.50 ng/mL Low likelihood of sepsis. [...] entered into the Change in Procalcitonin Calculator (Subarctic Limitedefyhoj-ogo-zdvsmsdlit.MWHS) to determine the patient's Mortality Risk Prognosis. In healthy neonates, plasma Procalcitonin (PCT) concentrations increase gradually after , reaching peak values at about 24 hours of age then decrease to normal values below 0.5 ng/mL by 48-72 hours of age. Performed at [facility] [address] [place] [address] Avita Health SystemSCAN OF BLOOD SMEARon 45-41-9484MWSM OF BLOOD SMEARsee [facility], IncComment on above:Result Comment: Criteria Exceeded; Scan of Differential Slide PerformedPerformed By: #### POCGL #### [facility] [address] [place] [address]Lefy of Blood Smearon 12-83-4802DJAA OF BLOOD SMEARsee [facility] TriPoint Medical CenterComment on above:Criteria Exceeded; Scan of Differential Slide Performed Performed at [facility] [address] [place] [address] Avita Health SystemXR CHEST PORTABLEon 74-49-0072Ergpqkxia left basilar opacity as evidence for atelectasis and/or infiltrate. This report has been created using voice recognition software. It may contain minor errors which are inherent in voice recognition technology. Final report electronically signed by Dr. Romel Maldonado DO, MD on 02/08/2022 10:26 [facility] Romel Scott DO - 02/08/2022 PROCEDURE: XR CHEST PORTABLE [...] Romel Maldonado DO, MD on 02/08/2022 10:26 [facility] Work Phone: radiology Study observation (narrative)[employer] Work Phone: xr CHEST PORTABLEOrdered By: Romel Maldonado on 83-14-8892Bmnmr Health Work Phone: GLUCOSE POCon 04-91-7325Vfvbqhb [Mass/Vol]132 mg/dL Ajat84-565DhrecUT Health East [place] Jacksonville HospitalComment on above:Performed By: #### CBCND, PT, APTT, BMP, ANION, EGFR1 #### [facility] [address] [place] [address]Lzlykuo [Mass/Vol]118 mg/jOQvdd95-499DvrviUT Health [facility] Comment on above:Performed By: #### CBCND, PT, APTT, BMP, ANION, EGFR1 #### [address] [address]Tooogso [Mass/Vol]77 mg/lWTublsz24-896AvvgqUT Health [facility] Comment on above:Performed By: #### POCGL #### [address] [address]QUUU Glucoseon 64-36-4385Zouvide [Mass/Vol]132 mg/qAWyzf15 - 108 mg/dlAvita Health SystemComment on above:Performed at [facility] [address] [place] [address]Krabzlpeghjyak and review of laboratory resultsAbnoAgnesian HealthCareGlucose [Mass/Vol]118 mg/tXIrcq37 - 108 mg/dlAvita Health SystemComment on above:Performed at [facility] [address] [place] [address]Syuabdeopxxyxx and review of laboratory resultsAbnormCleveland Clinic Marymount Hospital HealthGlucose [Mass/Vol]77 mg/dL70 - 108 mg/dlAvita Health SystemComment on above:Performed at [facility] [address] [place] [address]Iiwzx HealthTYPE AND SCREENon 28-12-6844TEWCPskll HealthRh FactorNegativeMerSelect Specialty Hospital - Durham HealthTYPE AND SCREEN CAPTUREon 20-65-3935EWV CAPTUREANoThe Hospitals of Providence Horizon City CampusComment on above:Performed By: #### CBCND, PT, APTT, BMP, ANION, EGFR1 #### [facility] [address] [place], [place] [address]ZDJRHRPJ ARVIN CAPTURENegativeSaint Mark's Medical Center Comment on above:Performed By: #### CBCND, PT, APTT, BMP, ANION, EGFR1 #### [facility] [address] [place], [place] [address]ZK CAPTURE (2 D CLONES)NegativeSaint Mark's Medical Center Comment on above:Performed By: #### CBCND, PT, APTT, BMP, ANION, EGFR1 #### [facility] [address] [place], [place] [address]FC LUMBAR SPINE 1 VWon 51-28-9874OY LUMBAR SPINE 1 VWMOBILE LATERAL LUMBAR SPINE: CLINICAL INFORMATION: L2 S1 [...] Signed by: Wicho Allen MD 02/07/22 Final resultNoThe Hospitals of Providence Horizon City CampusPostop appearance of the lumbar spine. This report has been created using voice recognition software. It may contain minor errors which are inherent in voice recognition technology. Final report electronically signed by Dr. Wicho Allen on 02/07/2022 2:28 PMWSCOTLAND COUNTY MEMORIAL [facility]PITAL CONSOLIDATEDMOBIL LATERAL LUMBAR SPINE: CLINICAL INFORMATION: L2 S1 decompression, posterior COMPARISON: Earlier film same date, 1120 hours. TECHNIQUE: A single lateral mobile view of the lumbar spine was obtained following surgery performed by Dr. Loza. FINDINGS: Posterior lumbar fusion has been performed, with the pedicle screws and rods extending from L2 to S1. The lumbar vertebra are normally aligned. [facility] Wicho Anderson MD - 02/07/2022 MOBILE LATERAL LUMBAR SPINE: [...] Dr. Wicho Allen on 02/07/2022 2:28 PM [employer] Phone: lateral film of the lumbar spine during surgery. Please refer to the operative note for further details. This report has been created using voice recognition software. It may contain minor errors which are inherent in voice recognition technology. Final report electronically signed by Dr Milton Way on 02/07/2022 2:17 PM [facility] Milton Lamas MD - 02/07/2022 PROCEDURE: XR LUMBAR SPINE [...] Dr Milton Way on 02/07/2022 2:17 PM [employer] Phone: radiology Study observation (narrative)[employer] Phone: radiology Study observation (narrative)[employer] Phone: XR LUMBAR SPINE 1 VWOrdered By: Wicho Allen on 33-54-7728BxjlpE[employer] Phone: XR LUMBAR SPINE [address]: [address] on 92-28-0642Oshsl HealthANION GAPon 83-91-1644Slvrk gap [Moles/Vol]10.0 mmol/L Normal8.0-16.0[facility] HospitalComment on above:Result Comment: ANION GAP = Sodium -(Chloride + CO2)Performed By: #### POCGL #### [facility] [employer] [address] [place] [address]ZEVIkh 06-83-4024uUDO Coag (Bld) [Time]35.1 jXdgzur31.0-38.0[facility] HospitalComment on above:Result Comment: Therapeutic Heparin Reference Range= 60-95 seconds (corresponds to 0.3 to 0.7 u/mL Anti-Xa factor activity)Performed By: #### CBCND, PT, APTT, BMP, ANION, EGFR1 #### [facility] [employer] [address] [place] [address]UEULT METABOL PANELon 79-82-8678Ojvkssa [Mass/Vol]9.8 mg/dLNormal 8.5-10.5SCHRISTUS Mother Frances Hospital – TylerComment on above:Performed By: #### CBCND, PT, APTT, BMP, ANION, EGFR1 #### [employer] [facility] [employer] [address] [place] [address]Bzmvhevh [Moles/Vol]104 mmol/ZPzdgvd10-647CmyybUT Health East [place] Jacksonville HospitalComment on above:Performed By: #### CBCND, PT, APTT, BMP, ANION, EGFR1 #### [employer] [address] [place] [address]YT7 [Moles/Vol]29 mmol/QWtmkdn85-30TqhfmUT Health [facility] Comment on above:Performed By: #### CBCND, PT, APTT, BMP, ANION, EGFR1 #### [facility] [employer] [address] [place] [address]Wtjvzsqpso [Mass/Vol]1.0 mg/dLNormal0.4-1.2[facility] – TylerComment on above:Performed By: #### CBCND, PT, APTT, BMP, ANION, EGFR1 #### [address] [address]Jgqndwd [Mass/Vol]87 mg/fJJyljsq07-039SfmtsUT Health [facility] Hospital Comment on above:Performed By: #### CBCND, PT, APTT, BMP, ANION, EGFR1 #### [address] [address]Fctgplirp [Moles/Vol]4.6 mmol/LNormal3.5-5.2[facility] – TylerComment on above:Performed By: #### CBCND, PT, APTT, BMP, ANION, EGFR1 #### [address] [address]Zblbcf [Moles/Vol]143 mmol/BMhzfoo924-768HayfjUT Health East Texas Jacksonville HospitalComment on above:Performed By: #### CBCND, PT, APTT, BMP, ANION, EGFR1 #### [address] [address]Qulq nitrogen [Mass/Vol]21 mg/dLNormal7-22[facility] HospitalComment on above:Performed By: #### CBCND, PT, APTT, BMP, ANION, EGFR1 #### [address] [address]KRU NO DIFFERENTIALon 22-23-2236Phwhuwndozl distribution width (RBC) [Ratio]13.7 %Pwcbkg45.5-14.5[facility] – TylerComment on above: Performed By: #### CBCND, PT, APTT, BMP, ANION, EGFR1 #### [address] [address]Qrtqhptmxi (Bld) [Volume fraction]51.9 %Hgtehs14.0-52.0[facility] HospitalComment on above:Performed By: #### CBCND, PT, APTT, BMP, ANION, EGFR1 #### [address] [address]Jzxrtbgbcf (Bld) [Mass/Vol]16.3 g/bWHejrgk90.0-18.0[facility] HospitalComment on above:Performed By: #### CBCND, PT, APTT, BMP, ANION, EGFR1 #### [address] (RBC) [Entitic mass]30.1 zmGbhysp34.0-33.0[facility] HospitalComment on above:Performed By: #### CBCND, PT, APTT, BMP, ANION, EGFR1 #### [address] (RBC) [Mass/Vol]31.4 g/dLLow32.2-35.5[facility] – TylerComment on above:Performed By: #### CBCND, PT, APTT, BMP, ANION, EGFR1 #### [address] (RBC) [Entitic vol]95.8 aMBggy47.0-94.0[facility] HospitalComment on above:Performed By: #### CBCND, PT, APTT, BMP, ANION, EGFR1 #### [address] [address]XUKHNNJF551 thou/fk9Epxgcz664-744UwqfgUT Health [facility] Comment on above:Performed By: #### CBCND, PT, APTT, BMP, ANION, EGFR1 #### [address] [address]Zryesbgr mean volume (Bld) [Entitic vol]12.6 fLHigh9.4-12.4[facility] – TylerComment on above:Performed By: #### CBCND, PT, APTT, BMP, ANION, EGFR1 #### [address] [address]VGR3.42 mill/om3Ycguko4.70-6.10[facility] HospitalComment on above:Performed By: #### CBCND, PT, APTT, BMP, ANION, EGFR1 #### [address] [address]VDX-JU17.8 dBPnyb83.0-45.0[facility] HospitalComment on above:Performed By: #### CBCND, PT, APTT, BMP, ANION, EGFR1 #### [facility] [address] [place], [place] [address]VUO7.8 thou/wc1Erojjq3.8-10.8[facility] HospitalComment on above:Performed By: #### CBCND, PT, APTT, BMP, ANION, EGFR1 #### [facility] [address] [place], [place] [address]PHK 12-LEADon 11-09-0980YCN 12-LEAD55 55 168 90 438 419 24 -23 Sinus bradycardia Otherwise normal ECG No previous ECGs available Confirmed by BASHIR SCHRADER MDKELE ([id number]) on 01/23/2022 7:54:09 PM [email or web address]&Date=&Time=11%3a32%3a52%3a00&TestType=ECG&Site=3&OutputType=PDF&Ext=PDFNormal [facility] HospitalGFR, ESTIMATEDon 89-73-8959NLO/1.73 sq M.predicted MDRD (S/P/Bld) [Vol rate/Area]75 mL/min/{1.73_m2}AbnormalUT Health East Texas Jacksonville HospitalComment on above:Result Comment: Stage Description GFR, ml/min/1.73 m2 - At increased [...] Alana. Internal Med., Vol. 139 (2) pg 137-147.Performed By: #### POCGL #### [address] [address]RADOZJFCIW A1Con 69-31-6126Msjsqbr [Mass/Vol]99 mg/cGJbvhhc64-871 [facility] HospitalComment on above:Performed By: #### CBCND, PT, APTT, BMP, ANION, EGFR1 #### [address] [address]EtI6m (Bld) [Mass fraction]5.3 %Normal4.4-6.4[facility] TylerComascension borgess hospital on above:Performed By: #### CBCND, PT, APTT, BMP, ANION, EGFR1 #### [address] [address]FLNZV COMPLETE SCREEN RT-PCRon 60-61-1075KBDK SCREEN RT-PCR PositiveAbNorth Texas Medical CenterComment on above:Result Comment: MRSA TARGET DNA DETECTED by Real Time - Polymerase Chain Reaction. A positive test result does not necessarily indicate the presence of viable organisms. It is, however, presumptive for the presence of MRSA DNA. .Performed By: #### POCGL #### [address] [address]MS SCREEN RT-PCRPositiveAbNorth Texas Medical CenterComascension borgess hospital on above:Result Comment: Staphylococcus aureus (SA) target DNA DETECTED by Real Time - Polymerase Chain Reaction. A positive test result does not necessarily indicate the presence of viable organisms. It is, however presumptive for the presence of SA DNA.Performed By: #### POCGL #### [address] [address]ZZDDIKORQM TIMEon 48-21-3935QNN Coag (Bld) [Relative time]1.06 {INR}Normal0.85-1.13[facility] HospitalComascension borgess hospital on above:Result Comment: ---------INDICATION INR Reference Range DVT, PE, AF, AMI, tissue heart valve 2.0 to 3.0 Mechanical prosthetic valves 2.5 to 3.5Performed By: #### CBCND, PT, APTT, BMP, ANION, EGFR1 #### [address] [address]PKD CARDIAC STRESS/REST INJECTIONon 53-92-3332SPB CARDIAC STRESS/REST INJECTIONMRN: [id number] Patient Name: ALISIA CORREA STUDY: MYOCARDIAL PERFUSION STRESS TEST WITH LEXISCAN Performing facility: [facility], [address] [place] [address], [address], [place] [address] [facility] Provider: Ren Watson [facility], [facility] PCP: Dr. Ellen Crabtree Supervising provider: Milagros Mcnally MD, [facility] INDICATION: Chest Pain; Dyspnea HISTORY: Gender: M; Age: 60 y/o ; Height: 0 cm; Weight: 0 kg. High Cholesterol; Chest Pain; Syncope; Parkinson's Currently smoking. COMPARISON: Previous nuclear testing completed at [facility]. ACCESSION NUMBER(S): [id number]; [id number]; [id number] ORDERING CLINICIAN: REN WATSON TECHNIQUE: ONE DAY [...] no significant interval changes. Electronically signed by: Shiela GIBSONSoutheast Colorado HospitalNo Panel Informationon 64-24-3173TbtomjBNVencor Hospital Heart-[facility] [place] Work Phone: Office Visit (Cardiology)on 73-13-0127Ojciiz-up visit Diagnoses/Problems Assessed Chest pain (786.50) (R07.9) [...] we can help. You may also call 6-223-WISF-NOW for free resources and assistance.; Status:Complete - [...] my direction and personally dictated by me. Pankaj reviewed the chart and agree that the [...] history ofParkinson's disease followed by neurology from [place] on medical therapy. The patient has been [...] PCP. 7?Parkinson's disease followed by neurology from [place]. 8?obesity, encouraged the patient to reduce caloric [...] 2 right History o (more content not included)...NormalUH TouchworksTobacco Screening.on 19-94-1443Jisi risk assessmentb) One or more falls in the last yearVeterans Health Administration [address] 250 DO Work Phone: Tobacco use status CPHSa) YesVeterans Health Administration [place] 250 DO Work Phone: Tobacco Screening.YesVeterans Health Administration [address] 250 DO Work Phone: CT C-SPINE W RECON DATA -NBon 96-46-5716DH C-SPINE W RECON DATA -NB* * *Final Report* * * DATE OF EXAM: Sep 17 2020 12:01PM [facility] 0478 - CT C-SPINE W [...] Counting reference: Craniocervical junction. Anatomic Variants: None. Manager Gallery (topogram) images: Postop changes of the bland. [...] vertebrae with counting from the craniocervical junction. President Educational Institution: [facility] Transcribe Date/Time: Sep 17 2020 12:05P Dictated by : NICO MARTIN MD This examination was interpreted and the report reviewed and electronically signed by: NICO MARTIN MD on Sep 17 2020 12:08PM EST [id number] & Dales General HospitalCT HEAD WO/W IVCONon 56-67-3785HUM HEAD WO/W IVCON* * *Final Report* * * DATE OF EXAM: Sep 17 2020 12:01PM [facility] 0023 - CTA HEAD WO/W [...] Applicable Spot Sign Number: Not Applicable NECK: Manager Gallery (topogram) images: Postop changes of ACDF at [...] neck arteries. Essentially normal noncontrast CT brain. President Educational Institution: [employer] Transcribe Date/Time: Sep 17 2020 11:56A Dictated by : NICO MARTIN MD This examination was interpreted and the report reviewed and electronically signed by: NICO MARTIN MD on Sep 17 2020 12:09PM EST [id number] Valley Medical CenterCTA NECK W IVCONon 93-88-6400BTH NECK W IVCON* * *Final Report* * * DATE OF EXAM: Sep 17 2020 12:01PM [facility] 0024 - CTA NECK W [...] Applicable Spot Sign Number: Not Applicable NECK: Manager Gallery (topogram) images: Postop changes of ACDF at [...] neck arteries. Essentially normal noncontrast CT brain. President Educational Institution: [employer] Transcribe Date/Time: Sep 17 2020 11:56A Dictated by : NICO MARTIN MD This examination was interpreted and the report reviewed and electronically signed by: NICO MARTIN MD on Sep 17 2020 12:09PM EST [id number] Valley Hospital [facility] Center [id number] ID: [id number] Author: OMERO Brownlee Service: Radiology Author Type: Clinical Primary Care Nurse Type: Progress Notes Filed: 09/17/2020 11:40 AM [...] BY: OMERO Brownlee September 17, 2020 11:39 [facility] 90-61-7818BFITBkrmmjvkc (AVXRPR) ALISIA CORREA ([id number]) 1960 M Date Time Provider Department 09/11/20 [...] More... Hyperlipidemia [E78.5] 12/07/2017 More... Ulcerative lesion [NTB5138] 12/07/2017 07/21/2019 Shoulder arthritis [M19.019] 12/29/2017 Status [...] of unknown signific*09/15/2018 PD (Parkinson's disease) ([facility]) [G20] 04/13/2019 More... Dysphagia [...] 08/29/2020 Encounter Status:Closed by MAKI JEONG on 09/11/20[facility] LUMBAR SPINE WO IVCONon 92-64-8081Yokwybedc ClinicNo Panel Informationon 06-21-2020 [facility] THORACIC SPINE WO IVCONon 80-16-9236OthgtqfygSt. Mary's Medical [facility], [facility] CampusED HEALTHon 74-50-2738QLMCRJ HEALTHHNO ID: [id number] Author: Daniela (Rn) ALFONSO Castor Service: Infection Prevention Author Type: Registered Nurse Type: Allied Health Filed: 05/04/2020 8:19 AM Note Text: ISOLATION NOTE Admission Date: 05/03/2020 Type of Isolation Recommended: Contact Precautions (Antelope Isolation Sign) Indication: Carbapenem-resistant Enterobacteriaceae (CRE) Date Isolation Initiated: 05/04/2020 Anticipated Duration of Isolation: Duration of hospitalization Type and Date of Positive Test(s): urine culture 10/18/2019 SIGNATURE: Daniela Castro RN MSN PATIENT NAME: Alisia Correa DATE: May 04, 2020 TIME: 8:17 AM PAGER/CONTACT #: [phone] HospitalBasic Metabolic Panlon 21-17-1186Zxwzq gap [Moles/Vol]8 mmol/LLow9-18[facility] HospitalCalcium [Mass/Vol]8.4 mg/dLLow8.5-10.2[facility] HospitalChloride [Moles/Vol]103 mmol/LNormal 97-105[facility] HospitalCO2 [Moles/Vol]25 mmol/HAvhltt18-33Amuy HospitalCreatinine [Mass/Vol]1.11 mg/dLNormal0.73-1.22[facility]on HospitaleGFR- Amer.>60NormalAvon HospitalGFR/1.73 sq M predicted among non-blacks MDRD (S/P/Bld) [Vol rate/Area] mL/min/{1.73_m2}NormalAv HospitalComment on above:Result Comment: eGFR (Estimated GFR) Units of measure: [...] the eGFR may not accurately reflect actual GFR.Glucose [Mass/Vol]100 mg/dLHigh 74-99Avon HospitalComment on above:Result Comment: The [place] Diabetes Association (ADA) provides guidance for cutoff [...] Standards of Medical Care in Diabetes 2016, [place] Diabetes Association. Diabetes Care. 2016.39(Suppl 1).Potassium [Moles/Vol]4.1 mmol/L Normal3.7-5.1Avon HospitalSodium [Moles/Vol]136 mmol/CQpybtc044-487Duol [facility] Urea nitrogen [Mass/Vol]16 mg/dLNormal9-24Avon HospitalCASE MANAGEMon 05-04-2020 CASE MANAGEMHNO ID: [id number] Author: Ashley (Rn) ALFONSO Sands Service: Care Management Author Type: Registered Nurse Type: Care Mgt Progress Note Filed: 05/04/2020 11:01 AM Note Text: CARE MANAGEMENT PROGRESS NOTE SERVICE DATE: 05/04/2020 SERVICE TIME: 10:59 AM LOS: 0 days Spoke with Titi at [facility] outpatient PT. Appointment scheduled for Monday 05/07 at 1:30 PM. Patient to arrive 15 minutes early. Patient notified. 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 Attempted to Assist with AD Completion: Yes [...] Information Primary Emergency Contact: Dipti Correa Address: [address] [place] [address] OF [place] Relation: Spouse Supportive Patient [...] for meeting these needs: Outpatient therapy at [place] Patient's perception of need for this admission: hip replacement Medication Adherance I am convinced of the importance of my prescription medication: 0 - Agree Completely I worry that my prescription medication will do more harm than good to me : 0 - Disagree Completely I feel financially burdened by my hyo-ri-icckbs expenses for my prescription medication:: 0 - Disagree Completely Risk Score: 0 Patient is categorized as: Low risk < 2 Are you interested in bedside delivery of your medications? Yes Is Patient Psychosocially Complex?: No ASSESSMENT AND PLAN: Medical Needs: Medical Needs: None Psychosocial Needs: Psychosocial Needs: None FREEDOM OF CHOICE EXPLAINED: [place] of Choice Given: No Reason Not Given: No placements necessary POTENTIAL TRANSITION PLANS Outpatient Therapy Pt from home with spouse. Plan is Outpatient PT at [place]. Patient does not have an appointment. Call placed to [place] to schedule appointment. Waiting for return call. SIGNATURE: Ashley Sands RN PATIENT NAME: Alisia Correa DATE: May 04, 2020 TIME: 10:14 AM PAGER/CONTACT #: [phone] Health Deacon[facility] 05-04-2020 Absolute nRBC<0.01Normal<0.01Avon HospitalErythrocyte distribution width (RBC) [Ratio]14.1 %Jlmmzo92.5-15.0[facility]on HospitalHematocrit (Bld) [Volume fraction]39.3 %Zjryez84.0-51.0[facility]on HospitalHemoglobin (Bld) [Mass/Vol]12.6 g/dLLow13.0-17.0 [facility] (RBC) [Entitic mass]30.[address] gFPmrhwe03.0-34.0[facility] HospitalHC (RBC) [Mass/Vol]32.1 g/hLHveiyp69.5-36.0[facility] HospitalV (RBC) [Entitic vol]94.0 eQYsibxf45.0-100.0Av HospitalPlatelet mean volume (Bld) [Entitic vol]12.8 fL High9.0-12.7Avo HospitalPlatelets (Bld) [#/Vol]134 10*3/eXLsj798-082Eckf HospitalRBC (Bld) [#/Vol]4.18 10*6/uLLow4.20-6.00North Collins HospitalWBC (Bld) [#/Vol] 7.60 10*3/uLNormal3.70-11.00Av HospitalNURSING PROGon [id number] PROG HNO ID: [id number] Author: Renae (Rn) ALFONSO Greco Service: ? Author Type: Registered Nurse Type: Nursing Progress Note Filed: 05/04/2020 8:04 PM Note Text: Nursing Progress Note Patient Name: Alisia Correa Patient Location: [place] [address]/[facility] Daily Note: 1000 Pt awake oriented this [...] therapy scheduled. This note was completed by: Arielle BrittonPrimary Children's Hospitalmelly [facility] [id number] OF [facility] ID: [id number] Author: Rita Arias (Sap Solution Manager Consultant) Service: ? Author Type: ? Type: Plan [...] ointment Commonly known as: BACTROBAN Rita Arias (Sap Solution Manager Consultant) PAGER: yvan May 04, 2020 4:29 [facility] [id number] ID: [id number] Author: Steven Guevara Jr. Service: Orthopaedic Surgery [...] 1751 -- 05/03/20 1800 pneumatic compression stockings ([place], [place]) 05/03/20 1800 graduated compression stockings ([place] 05/03/20 1800 activity - mobilize [place] ([place] 05/03/20 1800 activity - [place]ize [place] 05/03/20 1800 activity - mobilize [place] ([place] VTE Prophylaxis: VTE prophylaxis appropriate POST OPERATIVE COMPLICATIONS: Complicated by: uneventful/none SIGNATURE: Steven Guevara Jr, MD PATIENT NAME: Alisia Correa DATE: May 04, 2020 TIME: 7:54 AM PAGER/CONTACT #: [phone] A. Andrew Memorial Hospital NTon [id number] NTHNO ID: [id number] Author: Nusrat Elkins/Kali Gallegos Service: Occupational Therapy Author Type: Occupational Therapist Type: Therapy (PT/OT/Speech/Resp) Filed: 05/04/2020 1:20 PM Note Text: Occupational Therapy SERVICE DATE: 05/04/2020 SERVICE TIME: 1145 to 1251 ROOM: [place] [address] Recommended Discharge Disposition: Home Anticipated Discharge Needs: [...] of daily living (ADL) Interventions Provided: Evaluation;Self Fci Management (73224) $ Evaluation-Low (95523) Billed Units: 1 unit Self Fci Management (83999) Treatment Minutes: 51 3 units Skilled Intervention(s): [...] car transfer with instructions given to have driver starting gate (as Patient is not allowed to drive) [...] Environment Patient Lives With: Spouse Assistance Available: time piece repairer(spouse works horse race timer but workplace is nearby and flexib ) Entry To Home: With Rail;Stairs Number Of Stairs Into Home: 2 Number Of Stairs To Bed/Bath: 1st floor bed and bath Tub/Shower Type: WIS with shower chair, grab bars, [facility] Laundry: 1ST FLOOR Equipment Owned: Cane;Hand Held Shower;Grab Bars-Shower;Standard Walker;Commode-Raised;Shower Chair;Lift Chair;ADL Kit;Clinical Lab Technologist;Wheeled Walker Prior Functional Level: Within Functional Limits 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, 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, 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's, amb usually without AD, but had to use 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 due to being off OA meds [...] Correa DATE: May 04, 2020 TIME: 1:08 [facility] NTO ID: [id number] Author: Massiel (Pt) ALBA Russell Service: Physical Therapy Author Type: Physical Therapist Type: Therapy (PT/OT/Speech/Resp) Filed: 05/04/2020 11:30 AM Note Text: Physical Therapy Evaluation SERVICE DATE: 05/04/2020 SERVICE TIME: 1008 to 1050 ROOM: [place] [address] Recommended Discharge Disposition: Outpatient Physical Therapy Anticipated Discharge Needs: Physical Assist at Home Physical Assist at Home for: Cleaning;Laundry;Medication Management;Shopping;Transportation Recommended Discharge Equipment: No equipment needs anticipated [...] Diagnosis: Reduced mobility-other Interventions Provided: Evaluation;Therapeutic Exercise (14522);Therapeutic Activity (20604);Gait Training (93238) $ Evaluation-Moderate (27927) Billed Units: 1 unit Therapeutic Exercise (43730) Treatment Minutes: 6 Skilled Intervention(s): Instruction in therapeutic exercise per THR protocol: AP, QS, GS, HS, abd, LAQ Verbal and tactile cuing provided for each. Written handouts provided and reviewed with patient today Therapeutic Activity (96293) Treatment Minutes: 10 1 unit Skilled Intervention(s): [...] 2/3 precautions without cues today Gait Training (63677) Treatment Minutes: 11 1 unit Skilled Intervention(s): [...] Environment Patient Lives With: Spouse Assistance Available: time piece repairer(spouse works horse race timer but workplace is nearby and flexib ) Entry To Home: With Rail;Stairs Number Of Stairs Into Home: 2 Number Of Stairs To Bed/Bath: 1st floor bed and bath Tub/Shower Type: WIS with shower chair, grab bars, [facility] Laundry: 1ST FLOOR Equipment Owned: Cane;Hand Held Shower;Grab Bars-Shower;Standard Walker;Commode-Raised;Shower Chair;Lift Chair;ADL Kit;Clinical Lab Technologist;Wheeled Walker Prior Functional Level: Within Functional Limits 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 Author Type: [...] May 03, 2020 TIME: 4:28 PM CSN: [id number] HospitalANES PRE-OPon [id number] PRE-OPHNO ID: [id number] Author: Coreen Ryan Service: ? Author Type: [...] only when has stomach upset ) - MULTIVIT-MIN/FA/LYCOPEN/LUTEIN (CENTRUM SILVER ULTRA MEN'S ORAL) Take [...] May 03, 2020 TIME: 10:37 AM CSN: [id number] HospitalBasic Metabolic Panlon 05-48-6445Rmgbt gap [Moles/Vol]8 mmol/LLow9-18Avon HospitalCalcium [Mass/Vol]8.7 mg/dLNormal8.5-10.2Avon HospitalChloride [Moles/Vol]105 mmol/ENqsxuy04-906Hyos HospitalCO2 [Moles/Vol]25 mmol/GRhhcrd36-94Qaal HospitalCreatinine [Mass/Vol] 1.20 mg/dLNormal0.73-1.22Avon HospitaleGFR- Amer.>60NormalAhunterdon medical center Hospital GFR/1.73 sq M predicted among non-blacks MDRD (S/P/Bld) [Vol rate/Area] mL/min/{1.73_m2}NormalAvon HospitalComment on above:Result Comment: eGFR (Estimated GFR) Units of measure: [...] the eGFR may not accurately reflect actual GFR.Glucose [Mass/Vol]107 mg/dLHigh 74-99Avon HospitalComment on above:Result Comment: The [place] Diabetes Association (ADA) provides guidance for cutoff [...] Standards of Medical Care in Diabetes 2016, [place] Diabetes Association. Diabetes Care. 2016.39(Suppl 1).Potassium [Moles/Vol]4.3 mmol/L Normal3.7-5.1Avon HospitalSodium [Moles/Vol]138 mmol/OGscxwk651-073[facility] Urea nitrogen [Mass/Vol]18 mg/dLNormal9-24Avon HospitalCBCon 80-60-5009Unvxofby nRBC<0.01Normal<0.01Avon HospitalErythrocyte distribution width (RBC) [Ratio] 14.1 %Rtmnux20.5-15.0Avon HospitalHematocrit (Bld) [Volume fraction]43.9 %Normal 39.0-51.0Avon HospitalHemoglobin (Bld) [Mass/Vol]14.3 g/vKCntpmu56.0-17.0[facility] HospitalH (RBC) [Entitic mass]30.2 dQGxktfv58.0-34.0[facility] HospitalHC (RBC) [Mass/Vol]32.6 g/vAJrvykm62.5-36.0[facility]on [facility] Medical CenterMCV (RBC) [Entitic vol]92.8 fL Rpdxqk19.0-100.0Avon HospitalPlatelet mean volume (Bld) [Entitic vol]11.7 fL Normal9.0-12.7Avon HospitalPlatelets (Bld) [#/Vol]145 10*3/zXZmu019-630Kopq HospitalRBC (Bld) [#/Vol]4.73 10*6/uLNormal4.20-6.00Avon HospitalWBC (Bld) [#/Vol]9.79 10*3/uLNormal3.70-11.00Av HospitalCONSULTon [id number] ID: [id number] Author: Henry Collins Service: Hospital Medicine Author Type: Physician Type: Consults Filed: 05/03/2020 8:50 PM Note Text: DEPARTMENT OF HOSPITAL MEDICINE INITIAL CONSULT SERVICE DATE: 05/03/2020 SERVICE TIME: 7:44 PM Primary Care Physician: Ellen Crabtree, DO NIGHT AND WEEKEND COVERAGE: KARELY COVERAGE: Days: [phone], please contact day attending provider ( please page admission pager [phone] to find out day attending provider for [...] Laterality Date - COLONOSCOP W/ OR W/O [facility] SPEC Colonoscopy - EGD W/O OR [...] 08/06/2010 [facility]AC[facility] Left 2012 with [...] , Rfl: 0, Unknown at Unknown time MULTIVIT-MIN/FA/LYCOPEN/LUTEIN (CENTRUM SILVER ULTRA MEN'S ORAL), Take 1 [...] May 03, 2020 TIME: 7:44 PM PAGER/CONTACT #:[facility] 05-03-2020 NURSING [facility] ID: [id number] Author: Renae (Rn) ALFONSO Greco Service: ? Author Type: Registered Nurse Type: Nursing Progress Note Filed: 05/03/2020 7:58 PM Note Text: Nursing Progress Note Patient Name: Alisia Correa Patient Location: [place] [address] [address] Daily Note: Received pt from PACU in stable condition at 1745. Bilateral ppp, toes warm and mobile, denies numbness or tingling, Abductor pillow in place. Vitals stable. Will monitor. This note was completed by: Renae Greco [facility] [id number] NOO ID: [id number] Author: Steven Guevara Jr. Service: Orthopaedic Surgery Author Type: Physician Type: Operative Report Filed: 05/03/2020 3:08 PM Note Text: [facility] OPERATIVE REPORT PATIENT NAME: Alisia Correa AGE: [age] year old LOG ID: [id number] Surgery Date: 05/03/2020 SURGEON: Steven Guevara M.D. CARE REP: Vj Jorge PA-C, his assistance consisted of [...] banked allogenic blood if medically necessary. IMPLANTS: [employer] Total Hip System SIZE TYPE Acetabulum [...] dislocated. Proximal femoral osteotomy was performed. The ammonia box tender osteotome was utilized to lateralize [...] MD DATE: May 03, 2020 TIME: 2:57 [facility]NAnt[facility] [id number] ID: [id number] Author: Tracey Yañez (Rt) Bill Service: Radiology Author Type: Primary Care Nurse Type: Progress Notes Filed: 05/03/2020 4:01 PM [...] BY: RT Kathy May 03, 2020 4:01 [facility] ID: [id number] Author: Steven Guevara Jr. Service: Orthopaedic Surgery Author Type: Physician Type: Progress Notes Filed: 05/03/2020 8:02 AM Note Text: The patient was offered a surgery/procedure at a [facility]. The surgeon/proceduralist and patient have discussed [...] scheduled surgery/procedure as indicated on the consent form.[facility] ED [id number] EDHNO ID: [id number] Author: Kaylee Sunshine RN Service: ? Author Type: Registered Nurse Type: Patient Education Filed: 05/03/2020 11:02 AM Note Text: PRE OP LEARNING ASSESSMENT PROCEDURE/SURGERY: SURGERY READINESS TO LEARN COGNITIVE ABILITY: Alert and oriented MOTIVATION TO LEARN: Interested FAMILY SUPPORT: Unable to assess - Family not present PATIENT LEARNS BEST BY: Individual Instruction Verbal Instruction FACTORS AFFECTING LEARNING: None PHYSICAL LIMITATIONS AFFECTING LEARNING: NoneNormalAvon HospitalSURGICAL PATHOLOGYon [id number] PATHOLOGYSpecimen originated from [facility] Specimen #: [id number] Submitting Physician: STEVEN GUEVARA JR, MD FINAL [...] reamings. The additional tissue appears grossly unremarkable. Service Counter Cashier sections are submitted in formalin as follows: A1 soft tissue, A2 bone after a period of decalcification. ARH/adb 05/04/2020 Gross examination performed at [facility], [address] [place], [place] [address]skyla., [place] [id number] Date of Report: 05/09/2020 Date of Procedure: 05/03/2020 Date of Receipt: 05/03/2020 Submitted by: STEVEN GUEVARA JR, MD Location: AV5W Diagnostic interpretation performed at [facility], [address] [place] [address] [place] [id number]. CLIA Number: [id number] Clinic Reference Lab Comment on above:Performed By: #### S #### See report for performing lab information.XR PELVIS 1V APon [id number] PELVIS 1V AP* * *Final Report* * * DATE OF [...] IMPRESSION: Status post hip arthroplasty, normal alignment President Educational Institution: [employer] Transcribe Date/Time: May 03 2020 4:05P Dictated by : JUAN LUIS RUSSELL MD This examination was interpreted and the report reviewed and electronically signed by: JUAN LUIS RUSSELL MD on May 03 2020 4:07PM EST [id number] Intermountain Medical CenterCNPNon [id number] (AVPRAD) ALISIA CORREA ([id number]) 1960 M Date Time Provider Department 05/02/20 VJ JORGE (PA) During your visit today, we recorded the [...] Hives Date Reviewed: 04/24/2020 Reviewed by: Britney ([facility]) Trent - Fully Assessed Reason for [...] More... Hyperlipidemia [E78.5] 12/07/2017 More... Ulcerative lesion [MOM3415] 12/07/2017 07/21/2019 Shoulder arthritis [M19.019] 12/29/2017 Status [...] More... Encounter Status:Closed by VJ JORGE on 05/02/20[facility] NURSING PROGomelly [id number] PROMACKENZIE ID: [id number] Author: Niyah Dawson (Rn) ALFONSO Golden Service: Anesthesiology Author Type: [...] Niyah Golden RN April 30, 2020 2:36 PMNormalAvon HospitalType and SCR (30D)on 56-23-7032EXN/RH(D) NegativeNoAtlantiCare Regional Medical Center, Mainland Campus HospitalHOSPon 66-53-5975LEBSUdlxmqi:Alisia Correa MRN: Height:5' 10.984 (1.803 m) Weight:243 [...] mg capsule sucralfate (CARAFATE) 1 gram tablet MULTIVIT-MIN/FA/LYCOPEN/LUTEIN (CENTRUM SILVER ULTRA MEN'S ORAL) amitriptyline 25 [...] complication, without long-term current use of insulin ([facility]) [E11.9] Chronic pain syndrome [G89.4] COPD with chronic bronchitis ([facility]) [J44.9] Arthritis of knee [M17.10] [...] unknown significance) [D47.2] PD (Parkinson's disease) ([facility]) [G20] Dysphagia [R13.10] 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 ([phone])on 05/07/20 @ 2:45. They want patient to arrive 10 to 15 min early. Fax PT order to [phone].NormalAvon HospitalBasic Metabolic Panlon 40-35-7900Fdigo gap [Moles/Vol]8 mmol/LLow9-18Avon HospitalCalcium [Mass/Vol]8.6 mg/dLNormal8.5-10.2Avon HospitalChloride [Moles/Vol]101 mmol/UMzjcyl47-440Qzaq HospitalCO2 [Moles/Vol]30 mmol/CEwxycg65-31Qrwz HospitalCreatinine [Mass/Vol] 1.02 mg/dLNormal0.73-1.22Avon HospitaleGFR- Amer.>60NormalAvon Hospital GFR/1.73 sq M predicted among non-blacks MDRD (S/P/Bld) [Vol rate/Area] mL/min/{1.73_m2}NormalAvon HospitalComment on above:Result Comment: eGFR (Estimated GFR) Units of measure: [...] the eGFR may not accurately reflect actual GFR.Glucose [Mass/Vol]110 mg/dLHigh 74-99Avon HospitalComment on above:Result Comment: The [place] Diabetes Association (ADA) provides guidance for cutoff [...] Standards of Medical Care in Diabetes 2016, [place] Diabetes Association. Diabetes Care. 2016.39(Suppl 1).Potassium [Moles/Vol]4.1 mmol/L Normal3.7-5.1Avon HospitalSodium [Moles/Vol]139 mmol/EGeucpu703-686Lzoh [facility] Urea nitrogen [Mass/Vol]18 mg/dLNormal9-24Avon HospitalCBCon 75-04-1131Ktjstark nRBC<0.01Normal<0.01Avon Intermountain Medical CenterErythrocyte distribution width (RBC) [Ratio] 13.7 %Nyxkin53.5-15.0Avon HospitalHematocrit (Bld) [Volume fraction]39.6 %Normal 39.0-51.0Avon Intermountain Medical CenterHemoglobin (Bld) [Mass/Vol]12.5 g/dLLow13.0-17.0Avon [facility] HospitalH (RBC) [Entitic mass]30.2 hZIlykht13.0-34.0Avon [facility] HospitalHC (RBC) [Mass/Vol]31.6 g/iAWuwwli91.5-36.0Avon HospitalMCV (RBC) [Entitic vol]95.7 fL Ridftn40.0-100.0Avon HospitalPlatelet mean volume (Bld) [Entitic vol]11.8 fL Normal9.0-12.7Avon HospitalPlatelets (Bld) [#/Vol]129 10*3/pSSna496-544Uggw HospitalRBC (Bld) [#/Vol]4.14 10*6/uLLow4.20-6.00Avon HospitalWBC (Bld) [#/Vol] 6.62 10*3/uLNormal3.70-11.00Avon HospitalCONSULT PROn 56-23-9718UUTPDYL PROG HNO ID: [id number] Author: Harry Alarcon Service: Hospital Medicine Author Type: Physician [...] heel fissure and hemorrhagic callus great toe). Harry Alarcon D.O. Associate Staff, Department of Hospital Medicine Clinical Steam Setterverifying machine operator Hospital Medicine, [facility] Pager [phone] / [phone] HospitalNNew Horizons Medical Center [id number] PROGHNO ID: [id number] Author: Renae (Rn) ALFONSO Greco Service: ? [...] via wheelchair. This note was completed by: Patricia BrittonRobert Wood Johnson University Hospital at Rahwaymelly Intermountain Medical CenterPLAN [facility] 08-27-6212BABL [facility] ID: [id number] Author: Rita Arias (Sap Solution Manager Consultant) Service: ? Author Type: Primary Care Nurse Type: Plan of Care Filed: 11/09/2019 10:31 AM Note Text: [facility] [employer] BEDSIDE DELIVERY SURVEY 1. Patient to use [facility] Bedside Delivery - NO prefer own pharmacy Insurance Information as follows: 2. Insurance card on file - N/A 3. Credit card for payment - N/[facility] [id number] HNO ID: [id number] Author: Demetris Naik Service: ? Author Type: Physician Rn Advice Type: Progress Notes Filed: 11/09/2019 7:49 AM [...] discharge planning-plan for DC home today with [facility] if independent with physical therapy ACTIVE [...] 0747 -- 11/08/19 1315 pneumatic compression stockings (mn,oh) 11/08/19 1315 graduated compression stockings (mn,oh) 11/08/19 1315 graduated compression stockings (mn,ne) 11/08/19 1315 activity - mobilize patient (mn,ne) 11/08/19 1315 activity - mobilize patient (mn,oh) 11/08/19 1315 activity - mobilize patient (mn,ne) VTE Prophylaxis: VTE prophylaxis appropriate POST OPERATIVE COMPLICATIONS: Complicated by: uneventful/none SIGNATURE: Demetris Naik PA-C PATIENT NAME: Alisia Correa DATE: November 09, 2019 TIME: 7:48 AM PAGER/CONTACT #: ETX#[phone] Lakes Regional Medical Center EDon [id number] EDHNO ID: [id number] Author: Shelley Givens (Pharmacist) Service: Pharmacy Author [...] medications were sent to e- [facility]-INTERNAL USE ONLY - [place] [address] [facility] - [phone] [address] [facility] [address] ? aspirin, enteric coated 81 mg EC tablet ? oxyCODONE IR 5 mg immediate release tablet You can get these medications from any pharmacy You don't need a prescription for these medications ? acetaminophen 325 mg tabletNormalAvon [facility] EDHNO ID: [id number] Author: Shelley Givens (Pharmacist) Service: Pharmacy Author [...] information and Indicates understanding of topic SHELLEY HIZNAYRegency Hospital CompanyTHERAPY NTon [id number] NTHNO ID: [id number] Author: Oumou Witt (Pt) Fabio Service: Physical Therapy Author Type: Physical Therapist Type: Therapy (PT/OT/Speech/Resp) Filed: 11/09/2019 2:56 PM Note Text: Physical Therapy Treatment SERVICE DATE: 11/09/2019 SERVICE TIME: 1105 to 1150 ROOM: [place] [address] Recommended Discharge Disposition: Outpatient Physical Therapy Anticipated Discharge Needs: Physical Assist at Home;Equipment Physical Assist at Home for: Transportation;Shopping;Stairs;Meals;Laundry;Cleaning Recommended Discharge Equipment: No equipment needs anticipated [...] week): 7 Current admission Treatment Interventions: Education;Joint Mobility;Strengthening;Functional Mobility Training Plan of Care developed with: Patient TREATMENT INTERVENTIONS: Therapy Diagnosis: Reduced mobility-other Interventions Provided: Gait Training (78745);Therapeutic Exercise (25650) Therapeutic Exercise (35733) Treatment Minutes: 15 1 unit Skilled Intervention(s): [...] 3x/day, 2 sets for 10 Gait Training (53642) Treatment Minutes: 30 2 units Skilled Intervention(s): [...] Correa DATE: November 09, 2019 TIME: 2:52 [facility] NTO ID: [id number] Author: Katharina (Maxwell Moser Service: Occupational Therapy Author Type: Occupational Therapist Type: Therapy (PT/OT/Speech/Resp) Filed: 11/09/2019 2:29 PM Note Text: Occupational Therapy Evaluation SERVICE DATE: 11/09/2019 SERVICE TIME: 08 to 0946 ROOM: [place] [address] Recommended Discharge Disposition: Home Anticipated Discharge Needs: Physical Assist at Home;Equipment Physical Assist at Home for: Transportation;Shopping;Stairs;Meals;Laundry;Cleaning OT Recommendations to Nursing: To Bathroom for [...] Education;Self Care / Home Management;Energy Conservation Training;Joint Mobility;Strengthening;Functional Mobility Training;Balance Training Plan of Care developed with: Patient TREATMENT INTERVENTIONS: Therapy Diagnosis: Reduced mobility-other;Decreased activities of daily living (ADL);Muscle Weakness (generalized) Interventions Provided: Evaluation;Self Fci Management (59132) $ Evaluation-Low (18546) Billed Units: 1 unit Self Fci Management (43575) Treatment Minutes: 38 3 units Skilled Intervention(s): [...] body dressing. Instructions and demonstration with a respiratory care faculty, sock aide, dressing stick and long handled [...] Correa DATE: November 09, 2019 TIME: 12:33 [facility] HospitalANES Brian [id number] POSTHNO ID: [id number] Author: Ashley Guerrier Service: Anesthesiology Author Type: [...] November 08, 2019 TIME: 1:16 PM PAGER/CONTACT #:[facility] PREOPon [id number] PREOPHNO ID: [id number] Author: Ashley Guerrier Service: Anesthesiology Author Type: [...] Complication, Without Long-Term Current Use of Insulin ([facility]) Chronic Pain Syndrome Copd With Chronic Bronchitis ([facility]) Arthritis of Knee Primary Osteoarthritis of Right [...] Gammopathy of Unknown Significance) Pd (Parkinson's Disease) ([facility]) Dysphagia Psychosis Due to Parkinson's Disease ([facility]) Osteoarthritis of Left Hip PAST MEDICAL HISTORY [...] Laterality Date - COLONOSCOP W/ OR W/O [facility] SPEC Colonoscopy - EGD W/O OR [...] SCM 08/06/2010 Performed by GEORGINA SEAMAN at [facility] - TOTAL KNEE REPLACEMENT Left 2012 [...] 1 capsule by mouth once daily. - MULTIVIT-MIN/FA/LYCOPEN/LUTEIN (CENTRUM SILVER ULTRA MEN'S ORAL) Take [...] November 08, 2019 TIME: 8:55 AM CSN: [id number] HospitalBasic Metabolic Panlon 11-08-2019 Anion gap [Moles/Vol]11 mmol/LNormal9-18Avon HospitalCalcium [Mass/Vol]8.9 mg/dL Normal8.5-10.2Avon HospitalChloride [Moles/Vol]106 mmol/ONfkn27-974Zzpx Hospital CO2 [Moles/Vol]25 mmol/XXenuiz37-86Pnwp HospitalCreatinine [Mass/Vol]0.95 mg/dL Normal0.73-1.22Avon HospitaleGFR- Amer.>60NormalAvon HospitalGFR/1.73 sq M predicted among non-blacks MDRD (S/P/Bld) [Vol rate/Area]mL/min/{1.73_m2} NormalAvon HospitalComment on above:Result Comment: eGFR (Estimated GFR) Units of measure: mL/min/1.73 meters squared eGFR is derived from the reexpressed MDRD Study equation using the following parameters: serum creatinine, age, gender and race. The creatinine assay has been calibrated to be traceable to [employer]. An eGFR <60 mL/min/1.73m2 for >3 months is consistent with chronic kidney disease. Refer to KDOQI guidelines for clinical interpretation. In patients with unstable renal function, e.g. those with acute kidney injury, the eGFR may not accurately reflect actual GFR.Glucose [Mass/Vol]125 mg/dLHigh 74-99Avon HospitalComment on above:Result Comment: The [place] Diabetes Association (ADA) provides guidance for cutoff [...] Standards of Medical Care in Diabetes 2016, [place] Diabetes Association. Diabetes Care. 2016.39(Suppl 1).Potassium [Moles/Vol]4.3 mmol/L Normal3.7-5.1Avon HospitalSodium [Moles/Vol]142 mmol/OSueinl120-511Jzzr Hospital Urea nitrogen [Mass/Vol]23 mg/dLNormal9-24Av HospitalCASE MGT INIT ASSHonorHealth [facility] [id number] MGT INIT [facility] ID: [id number] Author: Ashley (Rn) ALFONSO Sands Service: Care Management Author Type: Registered Nurse Type: Care Mgt Initial Assessment Filed: 11/08/2019 3:02 PM Note Text: CARE MANAGEMENT: ASSESSMENT AND DISCHARGE PLAN SERVICE DATE: November 08, 2019 SERVICE TIME: 3:01 PM PRIMARY CARE PHYSICIAN: Ellen Crabtree DO ADMISSION STATUS: Extended Recovery Needs Prior to Discharge: OT/PT Evaluation MEDICAL: 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 Yes Is Patient Psychosocially Complex?: No ASSESSMENT AND PLAN: Medical Needs: Medical Needs: None Psychosocial Needs: Psychosocial Needs: None FREEDOM OF CHOICE EXPLAINED: [place] of Choice Given: No Reason Not Given: No placements necessary POTENTIAL TRANSITION PLANS Outpatient Therapy Patient has equipment. Patient is scheduled for outpatient therapy on 11/11 at [place]. SIGNATURE: Ashley Sands RN PATIENT NAME: Alisia Correa DATE: November 08, 2019 TIME: 3:01 PM PAGER/CONTACT #: [phone] Health Deaconess [facility] 11-08-2019 Absolute nRBC<0.01Normal<0.01[facility] HospitalErythrocyte distribution width (RBC) [Ratio]13.9 %Efwwcd19.5-15.0[facility] HospitalHematocrit (Bld) [Volume fraction]44.3 %Xjfrav75.0-51.0[facility] HospitalHemoglobin (Bld) [Mass/Vol]14.2 g/uKOemkfo71.0-17.0 [facility] [facility] HospitalH (RBC) [Entitic mass]30.[address] fCZzhypc61.0-34.0St[facility] Mark's HospitalHC (RBC) [Mass/Vol]32.1 g/wNXdykak56.5-36.0[facility] CenterMCV (RBC) [Entitic vol]94.9 iZHhgnqd58.0-100.0[facility] HospitalPlatelet mean volume (Bld) [Entitic vol]11.7 fL Normal9.0-12.7Ahunterdon medical center HospitalPlatelets (Bld) [#/Vol]159 10*3/pWSwbfkc358-811Gssn HospitalRBC (Bld) [#/Vol]4.67 10*6/uLNormal4.20-6.00[facility] HospitalWBC (Bld) [#/Vol]10.50 10*3/uLNormal3.70-11.00[facility] Medical CenterCONSULTon 90-08-1485MXLXRAQSGB ID: [id number] Author: Bhupendra Chacon Service: Podiatry Author Type: [...] Laterality Date - COLONOSCOP W/ OR W/O [facility] SPEC Colonoscopy - EGD W/O OR [...] SCM 08/06/2010 Performed by GEORGINA SEAMAN at [facility] - TOTAL KNEE REPLACEMENT Left 2012 [...] intact Lower extremity tested with 10 gram Corral-Nichole monofilament No evidence of diabetic peripheral sensory [...] Correa appeared to be well informed. Bhupendra Crum Ines, DPMNormalSt. Vincent's Hospital ID: [id number] Author: SHRAVAN Christian Service: Hospital Medicine Author Type: Physician Rn Advice Type: Consults Filed: 11/08/2019 2:36 PM Note Text: DEPARTMENT OF HOSPITAL MEDICINE INITIAL CONSULT SERVICE DATE: 11/08/2019 SERVICE TIME: 1:14 PM Primary Care Physician: Ellen Crabtree, DO NIGHT AND WEEKEND COVERAGE: Days: [phone], please page me for patient issues. Nights: [phone], please page [facility] Hospitalist Night coverage pager [phone] REASON FOR CONSULT: Medical Management REQUESTING PHYSICIAN: [...] with ambulation. States his son is a high school social studies teacher but is unaware of his current skin [...] Laterality Date - COLONOSCOP W/ OR W/O [facility] SPEC Colonoscopy - EGD W/O OR [...] Rfl: 0, Past Week at Unknown time MULTIVIT-MIN/FA/LYCOPEN/LUTEIN (CENTRUM SILVER ULTRA MEN'S ORAL), Take 1 [...] - Levaquin [Levofloxa* Hives REVIEW OF SYSTEMS: CATCH BASIN CLEANER: history of Parkinson' s Disease RESP: history [...] - Continue home meds PD (Parkinson's disease) ([facility]) POA: Yes Assessment AND [...] Device and Early Ambulation Disposition: Home with [facility] Plan of care discussed with: Provider, RN, Patient SIGNATURE: SHRAVAN Christian PATIENT NAME: Alisia Correa DATE: November 08, 2019 TIME: 1:15 PM PAGER/CONTACT #: [phone] HospitalNURSING Brightlook Hospitalmelly [id number] PROGHNO ID: [id number] Author: Jessica (Rn) ALFONSO Joe Service: Nursing Author Type: Registered Nurse Type: Nursing Progress Note Filed: 11/08/2019 7:25 PM Note Text: Nursing Progress Note Patient Name: Alisia Correa Patient Location: [place] [address] [address] Daily Note: 1330 Pt admitted to room [...] This note was completed by: Jessica Joe RNYale [facility]iatric Hospitalmelly [facility] NOon [id number] [facility]ENTERO ID: [id number] Author: Steven Guevara Jr. Service: Orthopaedic Surgery Author Type: Physician Type: Operative Report Filed: 11/08/2019 2:08 PM Note Text: [facility] OPERATIVE REPORT PATIENT NAME: Alisia Correa AGE: [age] year old LOG ID: [id number] Surgery Date: 11/08/2019 SURGEON: Steven Guevara M.D. CARE REP: Vj Jorge PA-C, his assistance consisted of [...] banked allogenic blood if medically necessary. IMPLANTS: [employer] [facility] Total Hip System SIZE TYPE Acetabulum [...] dislocated. Proximal femoral osteotomy was performed. 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 Past Week at Unknown time Yes MULTIVIT-MIN/FA/LYCOPEN/LUTEIN (CENTRUM SILVER ULTRA MEN'S ORAL) Take [...] SHELLEY GIVENS, PHARMACIST November 08, 2019 1:53 [facility] HospitalPROGRESSon [id number] ID: [id number] Author: Niesha JerryRt) Elpidio Cobb Service: ? Author Type: Primary Care Nurse Type: Progress Notes Filed: 11/08/2019 12:05 PM [...] PERIPHERAL IV DATA: Not applicable SIGNED BY: Dian PUENTES November 08, 2019 12:05 [facility] HospitalPT EDon [id number] EDHNO ID: [id number] Author: Catherine (Rn) ALFONSO Basurto Service: Nursing [...] Signed By: Catherine Basurto RN In Department: [facility] CenterURGICAL PATHOLOGYon 49-04-6842MONYKLKQ PATHOLOGY Specimen originated from [facility] Specimen #: [id number] Submitting Physician: STEVEN GUEVARA JR, MD FINAL [...] Sectioning does not reveal any avascular necrosis. Service Counter Cashier sections are submitted as follows: A1 soft tissue, A2 bone submitted after decalcification. BF/slb 11/08/2019 [place] [address] Date of Report: 11/14/2019 Date of Procedure: 11/08/2019 Date of Receipt: 11/08/2019 Submitted by: STEVEN GUEVARA JR, MD Location: [facility] Diagnostic interpretation performed at [place] [address]. [place] Number: [id number] Clinic Reference Lab Comment on above:Performed By: #### S #### See report for performing lab information.THERAPY NTon 96-83-9840TPVNXMR NTHNO ID: [id number] Author: Oumou Witt (Pt) Fabio Service: Physical Therapy Author Type: Physical Therapist Type: Therapy (PT/OT/Speech/Resp) Filed: 11/08/2019 2:54 PM Note Text: Physical Therapy Evaluation SERVICE DATE: 11/08/2019 SERVICE TIME: 1325 to 1415(8 min for pharmacist to review meds) ROOM: [place] [address] Recommended Discharge Disposition: Outpatient Physical Therapy Recommended [...] week): 7 Current admission Treatment Interventions: Education;Joint Mobility;Strengthening;Functional Mobility Training Plan of Care developed with: Patient TREATMENT INTERVENTIONS: Therapy Diagnosis: Reduced mobility-other Interventions Provided: Evaluation;Therapeutic Exercise (28964);Gait Training (88456);Therapeutic Activity (36652) $ Evaluation-Low (91631) Billed Units: 1 unit Therapeutic Exercise (23548) Treatment Minutes: 12 1 unit Skilled Intervention(s): [...] position: LAQ X10 B LE Therapeutic Activity (13793) Treatment Minutes: 3 Skilled Intervention(s): Instructed patient in supine to sit pushing with upper extremities to sit up Gait Training (08984) Treatment Minutes: 12 1 unit Skilled Intervention(s): [...] Type: WIS with shower chair, grab bars, [facility] Laundry: 1ST FLOOR Equipment Owned: Cane;Hand Held [...] Correa DATE: November 08, 2019 TIME: 2:49 [facility]XR PELVIS 1V APon [id number] PELVIS 1V AP* * *Final Report* * * DATE OF [...] IMPRESSION: Left total hip prosthesis in place. President [employer]: [employer] Transcribe Date/Time: Nov 08 2019 12:43P Dictated by : LIGIA EDWARDS MD This examination was interpreted and the report reviewed and electronically signed by: LIGIA EDWARDS MD on Nov 08 2019 12:44PM EST [id number] [facility] Way HospitalNURSING PROGon [id number] PROG HNO ID: [id number] Author: Geneva (Rn) ALFONSO Goins Service: Nursing [...] Geneva Goins RN October 24, 2019 1:40 PMNormalAvon HospitalType and SCR (30D)on 10-18-2019 ABO/RH(D)NegativeNormalAvon HospitalCNCOon [id number] TextChajoel Correa Muhd[address]ho[address] [place], [place] [address]/ jose Correa[address] [address]Nitf Mr. Correa:The nurses and staff of the 5th floor Orthopedic nursing unit at [facility], a [facility], hope this letter finds you feelingwell and progressing in your recovery. Our team would like to thank you fortrusting and choosing us for your orthopedic needs. It was an honor for usto provide your nursing care. We knowthat placing our patients first andmaintaining a culture of continuous improvement each and every day isessential to the success of our organization.I hope that you have found your stay with us to have been positive. We wantto hear from you. If you have any comments, questions, or concerns about yourhospital stay please feel free to contact me, Dianna Villarreal at [phone] [email or web address].Additionally, you will receive a survey in the mail asking you to rate thecare you received while in the hospital. Please take the time to completeand send back the survey, as it is essential to our continued success. Ipersonally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 injection (rapid acting) (HumaLOG) SUBCUTANEOUS w MEALSinsulin lispro injection (rapid acting) (HumaLOG) SUBCUTANEOUS AT BEDTIMEmeperidine (PF) 12.5 mg injection (DEMEROL) 12.5 mg INTRAVENOUS (PACU) PRNfentaNYL 50 mcg/mL 50 mcg injection (SUBLIMAZE) 50 mcg INTRAVENOUS (PACU)PRNhydrOXYzine HCl 50 mg tab(s) (ATARAX) 50 mg ORAL q 6 H PRNALLERGIES:ALLERGIESAllergen Reactions- Avelox [Moxifloxaci* Rash, Hives, Itching, Shortness of Breath- Celebrex [Celecoxib] Rash, Hives, GI Upset- Erythromycin Base Hives, Shortness of Breath- Klonopin [Clonazepa* Itching- Levaquin [Levofloxa* HivesCOMPLETE REVIEW OF SYSTEMS:GENERAL: No weight loss, malaise or fevers.HEENT: Negative for significant vision problems, hearing loss, hoarsenessRESPIRATORY: Negative for cough, wheezing or shortness of breath. CARDIOVASCULAR: Negative for leg swelling, palpitations, orthopneaGI: Negative for abdominal discomfort, change in bowel habit, diarrhea,nausea, vomiting, has hx ulcersNEURO: Negative for headaches, syncope, paralysis, seizures or tremors,right hand does not work well for him at times gets tremors.All other reviewed and negative other than HPI.PHYSICAL EXAM: 300 54025BP: 99/58 95/56 106/61Pulse: 77 71 74Resp: 18 18 18Temp: 36.9 ?C (98.4 ?F) 37.1 ?C (98.8 ?F) 37 ?C (98.6 ?F)TempSrc: Oral Oral OralSpO2: 95% 95% 93%Weight:Height: 180.3 cm (5' 10.98 )GEN:well appearing, male, in no acute distress.SKIN: skin color, texture, turgor normal. No maude h.HEENT: no tenderness. PERRL. EOMI. Buccal mucosa moist.NECK: Supple, no adenopathy, no JVD.LUNGS:Clear MARIXA. No wheezes.CV: RRR. Normal s1/s2. No murmurs appreciated.ABD: Soft, non-tender, non-distended. Bowel sounds present x 4.EXT: surgical dressing to left shoulder intact, dry. No edema. Peripheralpulses present. Calves soft and non-tender bilaterally. Sling and Q-chalo place. Fingers warm and mobile.NEURO: AANDOx3. Grossly intact. No focal deficits.DATA:CBC, Coags, BMP, Mg, PhosRecent Labs 444WBC 7.10HB 9.7*HCT 29.6*PLT 128*ASSESSMENT AND PLAN:Postoperative anemia due to acuteblood loss [D62]: hgb 9.7. Patient isasx and VSS. Will continue to monitor, check CBC tomorrow.Thrombocytopenia[D69.6]: plt 128 this morning. No unusual bruising [...] in the care of your patient.Macrina Thomason, [facility] 201711:58 AMmeds reordered. Check bs. Pain is okI have seen the patient and verified the exam. I have personally reviewedall labs and imaging results. I have discussed with the DEMOGRAPHIC ANALYST and I haveparticipated in sifuentes components.I agree with the note as documented with additional comments if needed.The assessment andplan as outlined are reflection of our discussion.Reagan Blair MDNorth Alabama Specialty Hospitalmelly [id number] PROGHNO ID: [id number]: Sotero (Rn) Mlivic, RNService: (none)Author Type: Registered NurseType: Nursing Progress NoteFiled: 12/30/2017 10:14 PMNote Text: Nursing Progress NotePatient Name: Alisia CorreaMRN: [id number] Location: [place]/ GA-* Daily Note: Patient is resting in bed. Alert and oriented x 3. Denieschest pain, sob, nausea and dizziness. Initial foam-adhesive dressing tothe left shoulder is clean, dry and intact. Fingers warm to touch, lessthan 3 seconds cap refills, moves without difficulty. Fresh ice packapplied. Denies pain in calf. Lungs clear. Abdomen soft, non distended.Bowel sounds +. Passesflatus. Pedal pulses +. Strong push pulls. IV linepatent. Sequentials on bilaterally. Encouraged pat ient to use incentivespirometer. Assessment complete, see NPR. Plan of care discussed.Discussed pain meds with patient. Will continue to monitor. Call light inreach.This note was completed by: SOTERO CHAVARRIA RNConnecticut Hospice [facility] ID: [id number]: Cece (Rn) Allison Vera: (none)Author Type: Registered NurseType: Nursing Progress NoteFiled: 12/30/2017 4:53 PMNote Text: Nursing Progress NotePatient Name: Alisia JenkinserMRN: [id number] Location: [place]/ [place]-* Daily Note: pt c/o pain to left underarm, med with percocet 2 tabs po, rtshoulder dsg intact with fresh ice pack applied, on q ball intact/ patent,lef shoulder immobilizer on, jacqueline sequentials on bilat, vs stable, ptstates cannot go home today. Pt states that his works to 6 pm and helive 2 hours away from [id number] pt resting in bed with no change in status, no needs at this timeThis note was completed by: Yue Rico [facility] on 05-17-0595JAQHGJKKZEF ID: [id number]: Candida (Res) MahmoodService: Orthopaedic SurgeryAuthor Type: ResidentType:Progress NotesFiled: 12/30/2017 6:27 AMNote Text:ORTHOPAEDIC SURGERY PROGRESS NOTEDATE: 12/30/2017TIME: 5:54 AMPatient: Alisia CorreaMRN: [id number]: Procedure(s) (LRB):ARTHROPLASTY TOTAL SHOULDER;W/ GLENOID AND PROXIMAL HUMERAL REPLACEMENT(Left)Date: 12/29/2017Staff: Sergey oMnroeiIMPRESSION/PLAN: a 57 year old male s/p Left TSA- Pain: PO and IV--medicine co-managing- WB status: Left NWB- PT/OT--FF 0-120- Dressing soft, dry--change prn- Abx: Discontinuing Antibiotics after 24 hours- Diet: HLIV once tolerating PO, Full diet- DVT ppx: SCDs- Dispo: home todayACTIVE PROBLEM LISTSPRAIN OF NECK ()Spinal Stenosis in Cervical RegionBrachial Neuritis Or RadiculitisDisplacement of ThoracicIntervertebral Disc Without MyelopathyCarpal Tunnel SyndromeSPRAIN OF NECK ()Displacement of Cervical Intervertebral Disc Without MyelopathyBrachial Neuritis Or Radiculitis NOSSpinal Stenosis, Lumbar Region, Without Neurogenic ClaudicationRotator Cuff Syndrome of Shoulder and Allied DisordersPsychosexual Dysfunction, UnspecifiedUrgency of UrinationOther and Unspecified Malignant Neoplasm ofSkin of LipImpotence of Organic OriginFrequency of UrinationSlow Urinary StreamMicrostomiaHypertrophy of Prostate With Urinary Obstruction and Other Lower UrinaryTract Symptoms (Luts)Postlaminectomy Syndrome of Lumbar RegionGlenohumeral ArthritisPrimary Osteoarthritis of Left KneeType 2 Diabetes Mellitus Without Complication, Without Long-Term CurrentUse of Insulin (Hcc)Chronic Pain SyndromeCopd With Chronic Bronchitis (Hcc)Arthritis of KneePrimary Osteoarthritis of Right KneeOa (Osteoarthritis) of KneeGlenohumeral Arthritis, LeftEssential TremorAsthmaDiabetes Mellitus (Hcc)Essential Hypertens ionHyperlipidemiaUlcerative LesionShoulder ArthritisSUBJECTIVE:No acute issue overnight, Comfortable, pain is better controlled,afebrile, No CP/SOBOBJECTIVE:VITAL SIGNS:BMI: Body mass index is 33.49 kg/(m2). 156 300 12/30/18041BP: 101/68 99/58 95/56Pulse: 74 77 71Resp: 18Temp: 36.8 ?C (98.3 ?F) 36.9 ?C (98.4 ?F) 37.1 ?C (98.8 ?F)TempSrc: Oral Oral OralSpO2: 95% 95% 95%Weight:Height: 180.3 cm (5' 10.98 )INTAKE AND OUTPUT:Intake/Output Summary (Last 24 hours)at 12/30/17 0554Last data filed at 12/30/17 0204 Gross per 24 hourIntake 3130 mlOutput 600 mlNet 2530 mlPHYSICAL EXAMINATION:Gen: AOx3, NAD, nontoxic in appearance, conversational and appropriateCV: RRR to peripheral palpationPulm: Unlabored symmetric breathingABD: Non-tender, non-distendedMSK exam:LUEDressing c/d/Sarah PIN ulnar, ax intactSILT m/u/r/ax2+ radialLABS:CBC, Coags, BMP, Mg, PhosRecentLabs 4WBC 7.10HB 9.7*HCT 29.6*PLT 128*DATA:Diagnostic tests reviewed for today's visit:Most recent labsMost recent imagingBillynne Pat MD12/30/2017Orthopaedic Surgery PGY-2Pager: [phone] HospitalTHERAPY NT on [id number] NTHNO ID: [id number]: Cyn (Ot) RockopherService: Occupational TherapyAuthor Type: Occupational TherapistType: Therapy (PT/OT/Speech/Resp)Filed: 12/30/2017 4:30 PMNote Text:Occupational Therapy TreatmentSERVICE DATE: 12/30/2017SERVICE TIME: 1600 to 1610ROOM: [facility] [id number] Discharge Disposition: HomeAnticipated Discharge Needs: Physical Assist at HomePhysical Assist at Home for: Cleaning;Laundry;SelfCare;Shopping;TransportationOT Recommendations to Nursing: ADL?s in chair;OOB for mealsOT 6 Clicks Score: 16Precautions/Activity Restrictions: Weight Bearing Restrictions;ShoulderPrecautionsPrecaution/Activity Restriction Comments: hand,wrist,elbow, AROM OKExtremity With WeightBearing Restricted: Left Upper ExtremityLeft Upper Extremity Weight Bearing Status: NWBShoulder Precautions: External rotation limitation;Forward elevationlimitation;No pendulumsShoulder External Rotation Limited To: neutralShoulder Forward Elevation Limited To: 0-120 degreesASSESSMENT:Tolerated Full SessionOccupational Therapy Problem List: Education Deficit;CognitiveDeficit;Pain;Edema;Safety Deficits;Impaired Self Care (appears someconfusion and slow to respond)Patient /Caregiver Goals: Go HomeGoals for Plan of Care:Upper Body Bathing with: IndependentUpper Body Dressing with: IndependentLower Body Bathing with: IndependentLower Body Dressing with: IndependentChair Transfer with: IndependentToilet Transfer with: IndependentProgress Toward Goals: Progressing as expectedRehab Potential: Go odPLAN:Treatment Frequency (times per week): 2 Current admissionTreatment Interventions: Education;Self Care / Home Management;FunctionalMobility Training;Wound Care Management;Edema Management;Pain ManagementPlan of Care developed with: PatientTREATMENT INTERVENTIONS:Therapy Diagnosis: Reduced mobi lity-other;Decreased activities of dailyliving (ADL)Interventions Provided: Therapeutic Exercise (10573)Therapeutic Exercise (04273) Treatment Minutes: 101 unitSkilled Intervention(s): Facilitation of muscle control, optimalrecruitment and alignmentEducation in Instruction in therapeutic exercise PROM to 90 degreesshoulder flexion on L.Education in plan of care and precautions outlined.Total Timed Code Treatment Minutes: 10Total Treatment Time (minutes): 10FUNCTIONAL G CODE:OT 6 Clicks Score: 16 (12/30/17 1600)Self Care Current Status (G8987): CK (12/30/17 1055)Self Care Goal Status (G8988): (12/30/17 1055)Based on clinical assessment and the score on the 6 Clicks FunctionalAssessment Tool, the G code and corresponding severity modifiers aredocumented above.SUBJECTIVE:Current Hospital Course: Chart reviewed and no significant medical updatesrelevant to therapy were notedPatient Report: I'm OKHome EnvironmentPatient Lives With: Significant OtherAssistance Available: Part timeEntry To Home: With Rail;StairsNumber Of Stairs Into Home: 2Number Of Stairs To Bed/Bath: 0Tub/Shower Type:walk in shower, chair, GB, HHSLaundry: 1st floorEquipment [...] documentation flowsheet forcomplete details for this therapy evaluation/treatment.SIGNATURE: INDU Ray/Kenny PAT[facility]: [facility] 30, 2017 : 4:29 PM PAGER: [phone] HospitalTHERAPY NTO ID: [id number]: Cyn Velazquezervice: Occupational TherapyAuthor Type: Occupational TherapistType: Therapy (PT/OT/Speech/Resp)Filed: 12/30/2017 2:42 PMNote Text:Occupational Therapy EvaluationSERVICE DATE: 12/30/2017SERVICE TIME: 1055 to 1125ROOM: [address]FO-[id number] Discharge Disposition: HomeAnticipated Discharge Needs: Physical Assist at HomePhysical Assist at Home for: Cleaning;Laundry;SelfCare;Shopping;TransportationOT Recommendations to Nursing: ADL?s in chair;OOBfor mealsOT 6 Clicks Score: 16Precautions/Activity Restrictions: Weight Bearing Restrictions;ShoulderPrecautionsPrecaution/Activity Restriction Comments: hand,wrist,elbow, AROM OKExtremity With Weight [...] mobility/transfers, mindful ofweight bearing status and any pr ecautions associated with current surgicalprocedure.Tolerated Full SessionOccupational Therapy Problem List: Education Deficit;CognitiveDeficit;Pain;Edema;Safety Deficits;Impaired Self Care (appears someconfusion and slow to respond)Patient /Caregiver Goals: Go HomeGoals for Plan of Care:Upper BodyBathing with: IndependentUpper Body Dressing with: IndependentLower Body Bathing with: IndependentLower Body Dressing with: IndependentChair Transfer with: IndependentToilet Transfer with: Independent Rehab Potential: GoodPLAN:Treatment Frequency (times per week): 2 Current admissionTreatment Interventions: Education;Self Care / Home Management;FunctionalMobility Training;Wound Care Management;Edema Management;Pain ManagementPlan of Care developed with: PatientTREATMENT INTERVENTIONS:Therapy Diagnosis: Reduced mobility-other;Decreased activities of dailyliving (ADL)Interventions Provided: Evaluation;Therapeutic Exercise (68571);Self CareHome Management (75242)$ Evaluation-Moderate (35700) Billed Units: 1 unitTherapeutic Exercise (27292) Treatment Minutes: 101 unitSkilled Intervention(s): Instruction in therapeutic exercise PROM Lshoulder to 90 degrees in supineEducation in AROM distal toshoulder after brace comes off at home mid elf [facility] Management (89355) Treatment Minutes: 131 unitSkilled Intervention(s): Instructed in [...] arm at side within home after48 hours fromsx, recommended pt to wear sling if attempting to usesurgical arm within home.- recommended patientsleep up in recliner for safety and to avoid rollingonto surgical arm at night. Also technique on propping up UE for edemamanagement.- Instructed on proper don/doff technique of shoulder sling and cor rectpositioning- discussed ice management for pain and edema [...] my shoulder.Home EnvironmentPatient Lives With: Significant OtherAssistance A vailable: Part timeEntry To Home: With Rail;StairsNumber Of Stairs Into Home: 2Number Of Stairs To Bed/Bath: 0Tub/Shower Type: walk in shower, chair, GB, HHSLaundry: 1st floorEquipment Owned: Cane;Hand Held Shower;Grab Bars- ShowerPrior Functional Level: Within Functional LimitsOBJECTIVE:Attention De ficits: DistractibleVision Deficits: Wears glassesCURRENT FUNCTIONAL STATUS:Current Activities [...] documentation flowsheet forcomplete details for this therapy evaluation/treatment.SIGNATURE: INDU Hunt/Kenny PATIENT [facility]: [facility]: [facility] 30, 2017 : 2:34 PM PAGER:[phone] Hospital SystemO ID: [id number]: Pj (Pt) SulenService: Physical TherapyAuthor Type: Physical TherapistType: Therapy (PT/OT/Speech/Resp)Filed: 12/30/2017 1:25 PMNote Text:Physical Therapy EvaluationSERVICEDATE: 12/30/2017SERVICE TIME: 1140 to 1205ROOM: [address]MO-[id number] Discharge Disposition: Outpatient Physical Therapy (whenappropriate)Anticipated Discharge Needs: Physical Assist at HomePhysical Assist at Home for: Cleaning;Laundry;SelfCare;Shopping;TransportationRecommended Discharge Equipm ent: No equipment needs anticipatedPT Recommendations to Nursing: Ambulate with device;To bathroom;OOB forMeals;Sit at edge of bed;With assist of 1 personDevice: Ashish 6 Clicks Score: 24Precautions/Activity Restrictions: Weight Bearing Restrictions;ShoulderPrecautionsPrecaution/Activity Restriction Comments: hand,wrist,elbow, AROM OKExtremity With Weight Bearing Restricted: Left Upper ExtremityLeft Upper Extremity Weight Bearing Status: NWBShoulder Precautions: External rotation limitation;Forward elevationlimitation;No pendulumsShoulder External Rotation Limited To: neutralShoulder Forward E levation Limited To: 0-120 degreesASSESSMENT :Patient presents s/p L-TSA Pt evaluation of low complexity due to fewco-morbidities directly affecting pt's current condition. Pt'spresentation is relatively stable/uncomplicated, not requiring continualor complex monitoring/assessment.Tolerated Full Ses sionPhysical Therapy Problem List: Functional Mobility ImpairmentPatient /Caregiver Goals: Go HomeGoals for Plan of Care:Ambulate with: Modified IndependentDistance: 20ftDevice: CaneProgress Toward Goals: (goal achieved)PLAN:Treatment Frequency (times per week): Discontinue Therapy ServicesReasons Therapy Services Discontinued: Goals metPlan of Care developed with: PatientTREATMENT INTERVENTIONS:Therapy Diagnosis: Reduced mobility- otherInterventions Provided: Evaluation;Gait Training (05922)$ Evaluation-Low (79149) Billed Units: 1 unitGait Training (12083) Treatment Minutes: 232 unitsSkilled Intervention(s): Pt ambulated [...] FUNCTIONAL STATUS:Current Functional Mobility Assist Level Additional InformationRollingSupineto Sit Modified IndependentSit to SupineScooting Modified IndependentSit to Stand Modified IndependentStand to Sit Modified IndependentBed to ChairToilet/Commode Modified IndependentGait Supervision Gait Device: Cane Gait Distance (feet): 40 (20ft Mod-Ind after education)StairsCurb StepCar TransferGeneral Gait Deviations: Adriana decreased;Lateral sway increasedPlease see discipline specific clinical documentation flowsheet forcomplete details for this therapy evaluation/treatment.SIGNATURE: Pj Rueda PT PATIENT NAME: Alisia CorreaDATE: December 30, 2017 : 1:10 PM PAGER/CONTACT #: [phone] Ridge HospitalANES Brian [id number] POSTHNO ID: [id number]: Ilsa NgService: AnesthesiologyAuthor Type: AnesthesiologistType: Anesthesia PostOpFiled: 12/29/2017 6:14 PMNote Text:POST ANESTHESIA EVALUATION NOTESERVICE DATE: 12/29/2017SERVICE TIME: 6:14 PMDOB: 1960Vitals: 12/29/1816Temp: 36.1 ?C (97 ?F) 36 ?C(96.8 ?F) 12/29/1816BP: 109/68 104/58 114/57 115/64 12/29/1816Pulse: (!) 59 (!) 58 61 60 12/29/1816Resp: 18 18 16 16 12/29/1816SpO2: 97% 97% 97% 97%Validated Vital Signs: YesPOST ANES STATUS: No apparent anesthetic complications. The patient isappropriately hydrated with stable respiratory and cardiovascular status.Patient has safe and adequate airway control. The patient has appropriatepain relief and no significant post operativenausea or vomiting. Thepatient has achieved baseline mental status.Further assessment by Anesthesia Service: NoneOther Remarks:SIGNATURE: Ilsa Ng MD PATIENT NAME: Alisia CorreaDATE: December 29, 2017 : 6:14 PM PAGER/CONTACT #:[facility]iceANES PREOPon [id number] PREOPHNO ID: [id number]: Ilsa NgService: AnesthesiologyAuthor Type: AnesthesiologistType: Anesthesia PreOpFiled: 12/29/2017 6:14 PMNote Text:REGIONAL ANESTHESIOLOGY DAY OF SURGERY NOTEPATIENT NAME: Alisia CorreaMRN: [id number]/25/1960Allergies:ALLERGIESAllergen Reactions- Avelox [Moxifloxaci* Rash, Hives, Itching, Shortness of Breath- Celebrex [Celecoxib] Rash, Hives, GI Upset- Erythromycin Base Hives, Shortness of Breath- Klonopin [Clonazepa* Itching- Levaquin [Levofloxa* HivesProcedure(s) (LRB):ARTHROPLASTY TOTAL SHOULDER; W/ GLENOID AND PROXIMAL HUMERAL REPLACEMENT(Left)Surgeon(s):Sergey MonroeiVitals: 230BP: 116/61Pulse: 60Resp: 18Temp: 36.1 ?C (97 ?F)TempSrc: TemporalArterySpO2: 98%Weight: 108.9 kg (240 lb)Estimated body mass index is 33.47 kg/(m2) as calculated from thefollowing: Height as of 12/07/17: 180.3 cm (5' 11 ). Weight as of this encounter: 108.9 kg (240lb).ACTIVE PROBLEM LISTSPRAIN OF NECK ()Spinal Stenosis in [...] Without Complication, Without Long-Term CurrentUse of Insulin ([facility])Chronic Pain SyndromeCopd With Chronic Bronchitis ([facility])Arthritis of KneePrimary Osteoarthritis of Right KneeOa (Osteoarthritis) of KneeGlenohumeral Arthritis, LeftEssential TremorAsthmaDiabe ida Mellitus ([facility])Essential HypertensionHyperlipidemiaUlcerative LesionPAST MEDICAL HISTORYDiagnosis Date- Durbin's esophagus- Closed fracture of rib(s), unspecified Rib fracture- Esophageal reflux BARRETS ESOPHAGUS- Hypertrophy of prostate with urinary obstruction and other lower urinarytract symptoms (LUTS) Hypertrophy of the prostate with obstruction- Impotence, organic- Unspecified asthma(493.90)- Unspecified sleep apnea Last 2003, pt was 380 lbs at that time- Urinary calculus, unspecified Renal stonesPAST SURGICAL HISTORYProcedure Laterality Date- COLONOSCOP W/ OR W/O [facility] SPEC Colonoscopy- EGD W/O OR W/BRUSH/WASH [...] Take 75 mg by mouth twicedaily. 8 daysago Yesmupirocin (BACTROBAN) 2 % ointment Apply 1 [...] mg by mouth every 6 hours asneeded. morethen 1 week YeshydrOXYzine HCl (ATARAX) 50 mg [...] mouth four timesdaily. more then 1 week YesMULTIVIT-MIN/FA/LYCOPEN/L UTEIN (CENTRUM SILVER ULTRA MEN'S ORAL) Take [...] to affected area twice daily. more then 1weekclotrimazole-betamethasone (LOTRISONE) cream Apply to affected area twicedaily. [...] neurologic symptoms;Airway Evaluation: No significant abnormalitiesDentition: Teeth intac tSymptoms of Sleep Apnea: use to have diagnosis [...] I have reviewed the medicalrecord and/or the pre- anesthesia evaluation, pertinent labs, and testresults.Significant changes in the patient's condition since the History andPhysical, not otherwise documented in primary service progress notes: NoThis contains updated information obtained within 48 hours ofSurgery/Procedure.SIGNATURE: Ady Umanzor MDDATE: December 29, 2017TIME: 12:45 PMNormalEuclid HospitalBRIEF OP NOTon [id number] OP NOTO ID: [id number]: Candida (Moni) MahmoodService: Orthopaedic SurgeryAuthor Type: ResidentType:Brief Op NoteFiled: 12/29/2017 5:35 PMNote Text:SHOULDERBRIEF OPERATIVE / PROCEDURE NOTELOG ID: [id number]/Procedure Date: 12/29/2017Incision/Procedure Start Time: 3:04 PMIncision Close/Procedure End Time: 5:22 PMSurgeon(s)/Proceduralist(s) and Rn Advice(s):Surgeon(s) and Role: * Sergey Perez- Primary * Watson (Micheal Garcia - Fellow * Candida (Moni) Bi - Resident - AssistingPhysician Rn Advice: Chato Arrieta (Pa) IIProcedure(s):Procedure(s) (LRB):ARTHROPLASTY TOTAL SHOULDER; W/ GLENOID AND PROXIMAL HUMERAL REPLACEMENT(Left)Anesthesia: GeneralFindings: severe OAEstimated Blood Loss: 250 mlsSpecimens: NoneComplications: NonePre-Op/Pre-Procedure Diagnosis: Glenohumeral arthritis, left [M1 9.012]Post-Op/Post-Procedure Diagnosis: Glenohumeral arthritis, left [M19.012]Weight Bearing Status: Non-Weight Bearing, Passive FF 0-120, slingPlan:PACU Imaging: AP L shoulder- Antibiotics: ancef- Pain Management: PO and IV- Diet: CCD- Encouraged IS- PT/OT- Anticipate D/C: POD 1- Dispo: RNF then home POD 1- F/u with Dr. Sergey Perez as scheduled in clinic, with Kenny boyd-Eric Pat MD12/29/2017Orthopaedic Surgery PGY-2Pager: [phone]: Candida Pat MD PATIENT NAME: Alisia CorreaDATE: December 29, 2017 : 5:33 PM PAGER/CONTACT #: [phone] Rivers Healthcare [phone] PROGHNO ID: [id number]: Ny (Rn) JAMIE Hernandezervice: NursingAuthor Type: Registered NurseType: Nursing Progress NoteFiled: 12/30/2017 6:13 AMNote Text: Nursing Progress NotePatient Name: Promise CorreaMRN: [id number] Location: [place] [address]/ [place]-* Daily Note: Assumed care, pt sitting [...] this time.This note was completed by: [place] HERNANDEZ, ALFONSOSt. Vincent's Hospital ID: [id number]: Cece (Rn) Jody, RNService: (none)Author Type: Registered NurseType: Nursing Progress NoteFiled: 12/30/2017 10:50 AMNote Text: Nursing Progress NotePatient Name: Alisia CorreaMRN: [id number] Location: [address]-* Daily Note: pt arrived from PACU via bed, A+OX3, oriented pt to room andcall light, left shoulder dsg with immobilizer and ice pack dry andintact, pillow placed behind left elbow, on q ball intact/ clamped, ptdenies pain at this time, vs stable, [place] at bedside ordering dietfor [id number] Reviewed daily medication list with pt, compared med list with MARand ordered appropriate medications that were missing from pt's MARThis note was completed by: Cece Vera, ALFONSOWest [facility] NOon 12-29-2017 OPERATIVE NOHNO ID: [id number]: Sergey Cerna: Orthopaedic SurgeryAuthor Type: PhysicianType: Operative ReportFiled: 12/29/2017 5:49 PMNote Text:[place] [address] [place]OPERATIVE REPORTNAME: Alisia Correa CLINIC #: [id number]: 12/29/2017 (3:04pm-5:22pm) AGE : 57SURGEON 1: Sergey Perez M.D.CARE REP: 1. Candida Pat M.D. 2. Watson Garcia D.O.3. Jarek DowningOPERATION: Left total shoulder arthroplasty with posteriorly augmentedglenoid component, biceps tenodesis.ANESTHESIA: General anesthesia with regional interscalene nerve block forpostoperative pain control.PREOPERATIVE DIAGNOSIS: Left shoulder primary glenohumeral osteoarthritis.POSTOPERATIVE DIAGNOSIS: Left shoulder primary glenohumeralosteoarthritis, biceps tendinopathy.OPERATIVE INDICATIONS: The patient is a 57 year old right-hand dominantwhite male who has a history of chr onic left shoulder pain from adiagnosis of glenohumeral arthritis. He has developed progressivelyworsening arthritic symptoms, including pain and loss of motion. Due tothe failure of nonoperative management, discussion was had about surgicalinterventions. He was deemed a candidate for left total sultana ulderarthroplasty. The risks and benefits of the surgery, as well as theexpected postoperative course were discussed with the patient at length.The patient understood the risks and benefits, and wished to proceed withthe operation.OPERATIVE FINDINGS: There were arthritic changes of the glenohumeralj oint on both the humeral and glenoid side, with extensive osteophyteformation along the humeral head. The subscapularis and superior andposterior rotator cuff were found to be intact intraoperatively.Preoperative range of motion under anesthesia showed passive externalrotation at the side of approximately 30 degrees, and passive forwardflexion of approximately 120 degrees. At the end of the case,passiveexternal rotation at the side was approximately 60 [...] nerve block in his left upper extremity forpostoperativepain control. Preoperative antibiotics were given. Thepatient was [...] subdeltoid and subacromial spaces weredeveloped deeply. The intervalbetween the conjoined and subscapularistendons was next developed [...] the anatomic neck of thehumeral head. The humeralhead was then delivered into the wound withsimultaneous [...] the rotator interval and subcoracoid recess. The anteriorcapsulewhich had previously been dissected out was then [...] be completely exposed. The patientwas noted to haveevidence of advanced glenoid wear, with significantposterior wear. [...] and ream the anterior halfof the glenoid justto the start of bleeding bone. We then drilled thecentering hole for the anchor peg glenoid over the guide pin. The guidepin was then removed, and the guide for reaming the 7 mm posterior stepaugmentwas placed. The posterior half of the glenoid [...] reamed surface with good fit of thesize 48mm, +7 mm to the glenoid. The trial was then removed, and we pulseirrigated the glenoid and dried the peg holes. We then placed pressurizedcement within the peripheral peg holes. Bone graft from the g lenoidreamings was also placed in the grooves of the center peg of the 48 mm, +7mm STEPTECH anchor peg glenoid. The final 48 mm, +7 mm STEPTECH anchor pegglenoid ([employer] STEPTECH APG) was then impacted into [...] implant. Therefore, we then placed a trial 52x 18 mm head,both centered and eccentric. The trial 52 x 18 mm centered head showed thebest head coverage. We then reduced this trial implant into the glenoid,and this showed excellent soft tissue tensioning with excellentsubscapularis length. The humerus was re-dislocated and the trial implantwas removed. The final humeral implant was, therefore, a 12 stem, -jqmyzt neck, with a 52 x 18 mm centered head ([employer] AP). Weplaced one, #2 Fiberwire suture around the neck of the prosthesis prior toimpaction. Three drill holes were then made along the bicipital groove andtwo #2 Fiberwire sutures were passed through the holes, with the loop ofeach suture left in the humeral canal toplace the humeral stem throughthem. The final humeral prosthesis was then impacted into the humerus, taking care to keep each suture loop around [...] single rotator interval stitch wasthen passed in ejfknx-rp-jbqab fashion with a #2 Ticron suture and tieddown to close the lateral rotator interval and set the osteotomy piecesuperiorly. The two #2 Fiberwire sutures coming out of the bicipitalgroove were then sequentially passed in a zdfwda-sb-pgtgl fashion medialto the horizontal mattress and sequential [...] the wound was sterilely dressed with Adaptic, 1a3tocuo, ABD dressing, and Foam tape. The shoulder was then placed in anabduction sling. The patient was awoken without complications andextubated. He was transferred to the PACU in stable condition.Closing of the incision was performed by Candida Pat M.D., and Gian Wu, with the primary surgeon (Sergey Perez M.D.) readilyavailable. The remainder of the procedure, including all criticalel ements, was completed by the primary surgeon (Sergey Perez M.D.) withassistance from Candida Pat M.D., Watson Garcia D.O., and Jarek GoodenESTIMATED BLOOD LOSS: 250 ccDRAINS: noneSPECIMENS: noneCOMPLICATIONS: none apparentEric Wciho Perez M.D.[facility]PT EDon [id number] ED HNO ID: [id number]: Crystal (Rn) JAMIE Martinervice: NursingAuthor Type: Registered NurseType:Patient EducationFiled: 12/29/2017 12:00 PMNote Text:PRE OP LEARNING ASSESSMENTPROCEDURE/SURGERY: SURGERY:READINESS TO LEARNCOGNITIVE ABILITY: Alert and orientedMOTIVATION TO LEARN: EagerInterestedFAMILY SUPPORT: High - Very involved in pt carePATIENT LEARNS BEST BY: Multiple MethodsFACTORS AFFECTING LEARNING: NonePHYSICAL LIMITATIONS AFFECTING LEARNING: NoneElectronically Signed By: Crystal Martin RN In Department: EUCRosey SAMEDAY SURGERY / TO [facility] HospitalXR SHOULDER SPECIFY 1V LTon 12-29-2017 XR SHOULDER SPECIFY 1V LT* * *Final Report* * *DATE OF EXAM: Dec 29 2017 5:43PM EUX [id number] - XR SHOULDER SPECIFY 1V LT / REASON: Post-operative state * * * * Physician Interpretation * * * *RESULT: EXAMINATION: XR SHOULDER SPECIFY 1V LTCLINICAL HISTORY: Postoperative stateTechnique: XR SHOULDERSPECIFY 1V LT -- left shoulder with 1 views on 1 imagesComparison: 07/17/2016RESULT:Patient is status post left shoulder arthroplasty. The orthopedic hardware appears intact and in satisfactory alignme nt on this single view of the left shoulder. Adjacent soft tissue changes are compatible with recent surgical procedure. No acute fracture is appreciated. Subchondral cyst formation and sclerosis is noted in the left glenoid. Degenerative changes are also evident at the left acromioclavicular joint. IMPRESSION:Status post left shoulder arthroplasty.Transcribed Using Voice RecognitionTranscribe Date/Time: Dec 29 2017 5:47PDictated by: AMY LOYD MDThidavion examination was interpreted and the report reviewed and electronically signed by: AMY LOYD MD on Dec 29 2017 5:49PM [id number] HospitalNURSING PROGon [id number] PRONO ID: [id number]: Amaya (Rn) Paula, RNService: (none)Author Type: Registered [...] HPI: DM-oral medication; Current smoker; S/P gastric ybhpnd-2818Ydr-bu Con siderations:N/AChart Check:[facility] 2017 9:11 AM NormalEuclid HospitalType and SCR (30D)on 21-24-2809NUH/RH(D)NegativeNormal [place] HospitalAntibody ScreenNegativeNormalEuclid HospitalHOSPon 33-74-5088JPIR Patient:Alisia Correa LMRN: Height:5' 11 (1.803 m)Weight:240 lb (108.863 kg)Outpatient Medications as of 12/29/17:oxyCODONE-acetaminophen (PERCOCET) 5-325 mg tabletdocusate sodium (COLACE) 100 [...] (CYTOTEC) 200 mcg tableturea (CARMOL) 40 % lotnclotrimazole-betamethasone (LOTRISONE) creamsildenafil (VIAGRA) 100 mg tablettopiramate (TOPAMAX) 100 mg tablettiZANidine (ZANAFLEX) 4 mg tabletr anitidine (ZANTAC) 150 mg tablethydrOXYzine HCl (ATARAX) 50 mg tabletAug Betamethasone Dipropionate(DIPROLENE) 0.05 % ointmentmagnesium hydroxide (MILK OF MAGNESIA) 400 mg/5 mL suspensionbudesonide-formoterol (SYMBICORT) 160-4.5 mcg/actuation inhalerDULoxetine (CYMBALTA) 60 mg capsulesucralfate (CARAFATE) 1 gram tabletMULTIVIT-MIN/FA/LYCOPEN/LUTEIN (CENTRUM SILVER ULTRA MEN'S ORAL)amitriptyline 25 mg ORAL tablettamsulosin (FLOMAX) 0.4 mg ORAL Ph19Qnjwegywf Sulfate 1.25 mg/3 mL INHALATION nebulizer solutionacarbose(PRECOSE 25 MG TAB)potassium citrate (UROCIT-K 10) 10 mEq ORAL TbSRAdmission/Clinic Administered Medications as of 12/29/17:lidocaine 10 mg/mL (1 %) 1-2 mg injection (XYLOCAINE)lactated ringers infusionceFAZolin iv piggyback 2 g in D5W (iso- osmotic) 100 mL (ANCEF)ropivacaine 0.2 % 1,000 mg in NaCl infusion (ON-Q) (NAROPIN)Problem List:SPRAIN OF NECK () [S13.9XXA]Spinal stenosis in cervical region [M48.02]Brachial neuritis or radiculitis [M54.12]Displacement of thoracic intervertebral disc without myelopathy [M51.24]Carpal tunnel syndrome [G56.00]SPRAIN OF NECK (30/4) [S13.9XXA]Displacement of cervical intervertebral disc without myelopathy [...] [M17.12]Type 2 diabetes mellitus without complication, without long- term current use ofinsulin (HCC) [E11.9]Chronic pain syndrome [G89.4]COPD with chronic bronchitis (HCC) [J44.9]Arthritis of knee [M17.10]Primary osteoarthritis of right knee [M17.11]OA (osteoarthritis) of knee [M17.10]Glenohumeral arthritis, left [M19.012]Essential tremor [G25.0]Asthma [J45.909]Diabetes mellitus (HCC) [E11.9]Essential hypertension [I10]Hyperlipidemia [E78.5]Ulcerative lesion [TOQ2064]Allergies:Avelox [Moxifloxacin Hcl]Celebrex [Celecoxib]Erythromycin BaseKlonopin [Clonazepam]Levaquin [Levofloxacin]Date Verified: 12/29/17Lab ValuesLab Value Units Date High LowPOTA* 4.6 mmol/L 0 12/07/2017 5.1 3.7HEMA* 43.5 % 12/07/2017 51.0 39.0No progress notes entered within the past 30 daysNoSelect Medical [facility] [place] Metabolic Panlon 07-02-2017 Anion gap11 mmol/DPukggk99-15Byndxzrv HospitalComment on above:Performed By: #### CMP, IRON, CBCDIF ####[place] [phone]#### FERR, HBA1C ####[place] [address] [place] AvMel[place] [phone] mg/dLLow8.5-10.5[facility] Comment on above:Performed By: #### CMP, IRON, CBCDIF ####[place] [phone]#### FERR, HBA1C ####[phone] mmol/VFvrjsq36-324Gjrlbyqj HospitalComment on above:Performed By: #### CMP, IRON, CBCDIF ####[place] [address] #### FERR, HBA1C ####[place] [phone] mmol/KXkrnrd31-13Dhxmyqzi Hospital Comment on above:Performed By: #### CMP, IRON, CBCDIF ####[place] [phone]#### FERR, HBA1C ####[place] [address] [place] AvDavid [place] [phone] 1.00 mg/dLNormal0.70-1.40St. [facility]'S HospitalComment on above:Performed By: #### CMP, IRON, CBCDIF ####[place] [phone]#### FERR, HBA1C ####[place] [address] [place] AvMel[place] [phone] (non-black)mL/min/{1.73_m2}Normal>60 [facility] HospitalComment on above:Performed By: #### CMP, IRON, CBCDIF ####[place] [phone]#### FERR, HBA1C ####[place] [address] [place]Mel[place] [phone] mass tuwt037 mg/iEMpfp08-277Jyepwiao HospitalComment on above:Performed By: #### CMP, IRON, CBCDIF ####[place] [phone]#### FERR, HBA1C ####[place] [address] [place] AvMel[place] [phone] molar conc 3.7 mmol/LNormal3.5-5.0[facility] HospitalComment on above:Performed By: #### CMP, IRON, CBCDIF ####[place] [address] #### FERR, HBA1C ####[place] [phone] mmol/JBuwnmb428-443Mwvjtifp HospitalComment on above:Performed By: #### CMP, IRON, CBCDIF ####[place] [phone]#### FERR, HBA1C ####[place] [address] [place] [address] [phone] mg/zIRchlzk91-48Klfbwvnm HospitalComment on above: Performed By: #### CMP, IRON, CBCDIF ####[place] [phone]#### FERR, HBA1C ####[place] [address] [place] [phone] MANAGEMon 12-27-9841RRJO MANAGENO ID: [id number]: Kerri Castro) HouseService: Care ManagementAuthor Type: Social WorkerType: Care Mgt Progress NoteFiled: 07/03/2017 9:32 AMNote Text:CARE MANAGEMENT DISCHARGE NOTESERVICE DATE: 07/03/2017SERVICE TIME: LOS: 1 dayAdmission Date: 07/01/2017DISCHARGE ARRANGEMENT (list agency and phone number)Home and Home careProvider: [facility] Phone: [phone] COMMUNICATION:summary of care sent to [facility] via [employer] Informed [facility] pt d/c yesterday.TRANSPORTATION ARRANGEMENTS:Car via familyADDITIONAL CONTACT RESOURCES:Discharge Information Admission (Discharged) from 07/01/[address] Medical Follow-Up Appointment Specialty Stan Cali Provider Name Swati Fiore MD Address [address] [facility], [place] [address] Appointment Date 07/21/17 Appointment Time 9:00AM Additonal Instructions Patient should bring the following to appointment:Picture ID, Insurance Card, Copay (if applicable), Medications/Med List,and Hospital Discharge paperwork. Please provide a minimum of 24 hournotice for cancellations/rescheduling.Needs Prior to Discharge: Ready for DischargeSIGNATURE: LIZETT Sweeney PATIENT NAME: Alisia Cox Sunny Avila.DATE: July 03, 2017 : 9:30 AM PAGER/CONTACT #:NormalMercy Health St[facility] [phone] distribution width Auto Ratio (RBC)13.6 % Kgsmkq02.5-15.0[facility] HospitalComment on above:Performed By: #### CMP, IRON, CBCDIF ####[place] [address] [address] [id number] #### FERR, HBA1C ####[facility] [place], [place] [phone] (RBC)3.73 10*6/uLLow4.20-6.00 [facility] HospitalComment on above:Performed By: #### CMP, IRON, CBCDIF ####[address] [phone]#### FERR, HBA1C ####[place] [phone] (HCT)34.4 %Low39.0-51.0[facility] HospitalComment on above:Performed By: #### CMP, IRON, CBCDIF ####[place] [phone]#### FERR, HBA1C ####[place] [phone] mass conc (Bld)10.9 g/dLLow13.0-17.0[facility] HospitalComment on above:Performed By: #### CMP, IRON, CBCDIF ####[place] [phone]#### FERR, HBA1C ####[place] [phone] jPJzivjl80.0-34.0[facility] Hospital Comment on above:Performed By: #### CMP, IRON, CBCDIF ####[place] [phone]#### FERR, HBA1C ####[place] [address]MCHC mass conc (RBC)31.7 g/pBKonudx46.5-36.0[facility] HospitalComment on above:Performed By: #### CMP, IRON, CBCDIF ####[place] [phone]#### FERR, HBA1C ####[address]5755MCV92.2 qTFqabhm88.0-100.0[facility] HospitalComment on above:Performed By: #### CMP, IRON, CBCDIF ####[place] [phone]#### FERR, HBA1C ####[place] [address] [place] AvMelissa [place] [phone] mean volume (PMV)12.5 fLNormal9.0-12.7[facility] HospitalComment on above:Performed By: #### CMP, IRON, CBCDIF ####[address] #### FERR, HBA1C ####[place] [address] [place] AvMel[place] [phone] 10*3/uL Hkz574-955Uqqxvlsq HospitalComment on above:Performed By: #### CMP, IRON, CBCDIF ####[place] [phone]#### FERR, HBA1C ####[place] [phone] (Leukocytes)6.04 10*3/uLNormal3.70-11.00[facility] Hospital Comment on above:Performed By: #### CMP, IRON, CBCDIF ####[address] #### FERR, HBA1C ####[place] [phone] PROG on 49-31-5611JYLYUSV PRONO ID: [id number]: Sonny Laguna (Pa)ervice: Pain ManagementAuthor Type: Physician AssistantType: Consult Progress NoteFiled: 07/02/2017 9:39 AMNote Text:INPATIENT ACUTE PAIN MGMT PROGRESS NOTESPatient Name: Alisia Correa . DATE: July 02, 2017SERVICE TIME: 9:32 AMPRIMARY SERVICE: Ortho and SpineConsult by Dr. Knox for acute post op painINTERVAL HPI: Is the patienthaving any pain? 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 frozen section marginsand primary closure of lip and submental selective node dissection.- PAST SURGICAL HISTORY OF 10/29 cyst removed from back S1- TISSUE REARR LIP,EAR,EYE GT 10 SCM 08/06/2010 [facility] by [facility]- TOTAL KNEE REPLACEMENT Left 2012 with revision 04/27/2017- VASECTOMYFAMILY HISTORYProblem Relation Age of Onset- Hypertension Paternal Grandmother- Hypert ension Paternal Grandfather- Diabetes Maternal Grandfather- Diabetes Paternal [...] mg cap(s) (FLOMAX) 0.8 mg ORAL AT BEDTIMEfluticaso ne-vilanterol 100-25 mcg/dose 1 Inhalation (BREO ELLIPTA) 1Inhalation INHALATION DAILYfamotidine 20mg tab(s) (PEPCID) 20 mg ORAL BIDDULoxetine 60 mg cap(s) (CYMBALTA) 60 mg ORAL DAILYtiZANidine 4 mgtab(s) (ZANAFLEX) 4 mg ORAL q 8 H [...] 4 mg injection (ZOFRAN) 4 mg INTRAVENOUS q6 HPRNaluminum-magnesium hydroxide-simethicone 200-200-20 mg/5 mL 30 mL(MAALOX,MYLANTA,MAG-AL PLUS)30 mL ORAL q 2 H PRNascorbic acid (vitamin C) 500 mg tab(s) (VITAMIN C) 500 mg ORAL BID wMEALSdocusate sodium 100 mg cap(s) (COLACE) 100 mg ORAL BID[START ON 07/03/2017] bisacodyl EC 10 mg tab(s) (DULC OLAX) 10 mg ORAL DAILYmagnesium hydroxide 400 mg/5 mL 30 mL (MOM) 30 mL ORAL DAILY PRNmetoclopramide HCl 10 mg injection (REGLAN) 10 mg INTRAVENOUS q 6 H PRNdiphenhydrAMINE 25 mg (BENADRYL) 25 mg ORAL q 4 H PRNferrous sulfate 325 mg tab(s) 325 mg ORAL BID w MEALSpolyethylene glycol 3350 17 g packet(MIRALAX, GLYCOLAX) 17 g ORAL DAILYPRNaspirin 81 mg [...] Abdomen soft, non-tender. Bowel sounds normal. No masses,organomegalyEXTREMITIES: R knee bandagedNEURO: Motor and Sensory intactDATA:Diagnostic [...] (fL)Date Value07/02/2017 92.2MCH (pG)Date Value07/02/2017 29.2MCHC (g/dL)Date Value07/02/201731.7RDW-CV (%)Date Value07/02/2017 13.6Platelet Count (k/uL)Date Value07/02/2017 146 (L)MPV (fL)Date Value07/02/2017 12.5ASSESSMENT AND PLAN:56 year old WM s/p TKA R ein7Mzudieu of tramadol 200mg/dayand neurontin 600mg ii tab po tidImpressionStatus post right knee replacementAcute right knee painPl anContinue tylenol, cymbalta, topamax,Continue zanaflex prn, and oxyir prncontinue neurontin to 1200mg tid, home medicationcontinue iv toradol 30mg q 6hrsIf lack of pain control, recommend MScontin 15mg tidDiscuss with Dr. GrewalATURE: SHRAVAN Lynn-CDATE: July 02, 2017TIME: 9:[address] Anne HospitalGlucose POCT ([facility] Use Only)on 36-22-5523Hmljoye mass conc97 mg/pRAclcgr74-990Iiigegez HospitalComment on above:Performed By: #### CMP, IRON, CBCDIF ####[address] [phone]#### FERR, HBA1C ####[facility] [address]fk[address] [place], [place] [phone] mass xtmf203 mg/eMEdpq13-431Mydoqvvc HospitalComment on above:Performed By: #### CMP, IRON, CBCDIF ####[address] [phone]#### FERR, HBA1C ####[facility] [place], [place] [phone] PROGon [id number] PROGHNO ID: [id number]: [place] ([facility]) Paul, RNService: (none)Author Type: Advance Clinical NurseType: Nursing Progress NoteFiled: 07/02/2017 1:37 PMNote Text: Nursing Progress NotePatient Name: Alisia Correa Sr. Location: [address]/[place] [address] Daily Note:Patient attended discharge instruction class for total joints , wheredischarge instructions were reviewed.Education/Teaching points reviewed:Wound care for Silverlon/Mepilex AG - any drainage upon removal notifysurgeonShoweringNutritionUse of ice, noheatNo pillow under the kneeWearing protocol for jacqueline hose/tonia wrapsSwelling (abnormal vs. Normal)Exercises (flexion vs extension),Level of activity patient should have daily to decrease post opcomplicationsIncentive spirometer use for home q1- 2hrs while awake x1 weekS/S of wound infectionFever [...] handouts outlining the most common side effects forthefollowing classifications of drugs were reviewed by the pharmacist:Bowel management/constipationOpiod therapy/pain managementAnti inflammatory/pain and swellingTylenol/analgesicAnticoagulants/DVT p rophylaxisPatient validated understanding of the above instructions.This note was completed by: [place] Miller RNSycamore Medical CenterING [facility] ID: [id number]: Sobeida JerryRn) Allison Frances: (none)Author Type: Registered NurseType: Nursing Progress NoteFiled: 07/02/2017 3:02 PMNote Text: Nursing Progress NotePatient Name: Alisia Correa Sr. Location: [address] Daily Note:1204: Patient is medically cleared to go home per .1501: Patient is cleared from PT and OT to go home.This note was completed by: Sobeida Frances [facility] ID: [id number]: Crystal JerryRn) Allison Camacho: (none)Author Type: Registered NurseType: Nursing Progress NoteFiled: [...] of LipImpotence of Organic OriginFrequency of UrinationSlow UrinaryStreamMicrostomiaHypertrophy of Prostate With Urinary Obstruction and Other Lower UrinaryTract Symptoms (Luts)Postlaminectomy Syndrome of Lumbar RegionGlenohumeral ArthritisPrimary Osteoarthritis of Left KneeType 2 Diabetes Mellitus Without Complication, Without Long-Term CurrentUse of Insulin (Hcc)Chronic Pain SyndromeCopd With Chronic Bronchitis (Hcc)Arthritis of KneePrimary Osteoarthritis of Right KneeOa (Osteoarthritis) of KneeAttendees Present at Rounds:Patient: Alisia Correa Sr.Care Management: Nate Herron Master Electrician: Anna Camacho, RNOrtho Front End Application Developer: Anna Miller, RNPharmacist: Nicky Sanches Discussed on [...] Concerns;Explain Scheduling and Routine of Care, Test andProcedures;[place] Patient/Family to Hospital/Unit EnvironmentKnowledge Deficit Goals/Outcomes: Participate in LearningProcess;Verbalizes/Demonstrates Knowledge and Understanding of ProvidedInstructionsKnowledge Deficit Goal Target Achievement Date: 07/04/17Mobility Intervention(s) Plan: Assist with Ambulation and Transfers;Energyconservation/Fatigue Management;Encourage Patient/Family Other: SeeCommentParticipation in Care;Gait Assessment;Pressure Ulcer PreventionMobility Goals/Outcome: Demonstratesability to complete transfers withleast level of assist.;Patient [...] 07/04/17Safety Intervention(s) Plan: Ensure Safe Positioning;Employ Safe HandlingTec hniques;Employ Safe Mobility;Fall Risk Assessment and PreventionSafety Goals/Outcomes: Maintain Patient SafetySafety Goal Target Achievement Date: 07/04/17Skin Intervention(s) Plan:Assess and Document Skin Condition per Protocol;Administer Treatments andMedications;Assess Temperature;Jose Score As sessed per ProtocolSkin Goals/Outcomes: Patient's Skin Integrity Maintained or ImprovedSkin Goal Target Achievement Date: 07/04/17DOCUMENTED BY: Crystal Camacho RN PATIENT NAME: Alisia Correa Sr.DATE: July 02, 2017 : 8:49 AM CSN: [id number] Nursing Progress NotePatient Name: Alisia Correa Sr. Location: [address]/[place] [address] Daily Note: Dr. Rivera placed on consult [...] discharged home today.This note was completed by: Patricia BarkleyMary Rut[facility] [phone] ID: [id number]: Ines TurnerniService: General Internal MedicineAuthor Type: Physici anType: Progress NotesFiled: 07/02/2017 6:46 PMNote Text:PROGRESS NOTE [...] CHFor palpitationsGI: No nausea, vomiting, or diarrheaGU: Nohistory of dysuria, frequency or incontinencePSYCH: Negative for sleep disturbance, mood disorder an d recentpsychosocial stressors.ENDOCRINE: Negative for cold or heat intolerance, polyuria, polydipsia andgoiterAll other reviewed and negative other than HPI.PRIOR TO ADMISSION MEDICATIONS:No prescriptions prior to admission.INs AND OUT SUMMARY:Intake/Output Summary (Last 24 hours) at 07/02/17 1845Last data filed at 07/02/17 1200 Gross per 24 hourIntake 2140 mlOutput 2700 mlNet -560 mlPHYSICAL EXAM:Patient Vitals for the past 24 hrs: BP Temp Temp src Pulse Resp CpY21707/02/17 1455 129/79 37.3 ?C (99.1 ?F) Oral 86 18 96 %07/02/17 0828 - - - 80 18 95 %07/02/17 0537 112/63 37.2 ?C (98.9 ?F) Temporal Art 73 16 97 %07/02/17 0155 117/60 36.2 ?C (97.2 ?F) Temporal Art 79 16 95 %09/13/17 2240 - - - - - 07/01/172114 115/73 37.5 ?C (99.5 ?F) Oral 77 [...] Amylase, AND LipaseIMAGINGReviewed and discussed with the patient.IN- PATIENT MEDICATIONS:No current hospital medications on file.PROBLEM LIST:ACTIVE PROBLEM LISTSPRAIN OF NECK ()Spinal Stenosis in Cervical RegionBrachial Neuritis Or RadiculitisDisplacement of Thoracic Intervertebral Disc Without MyelopathyCarpal Tunnel SyndromeSPRAIN OF NECK ()Displacement of Cervical Intervertebral Disc Without MyelopathyBrachial Neuritis Or Radiculitis NOSSpinal Stenosis, Lumbar Region, Without Neurogenic ClaudicationRotator Cuff Syndrome of Shoulder and Allied DisordersPsychosexual Dysfunction, UnspecifiedUrgency of UrinationOther andUnspecified Malignant Neoplasm of Skin of LipImpotence of [...] AND PLAN: 1. oa2. Copd3. Dm ssi4 bphSIGNATURE:Ines Wilsonimani, MDDATE: July 02, 2017TIME: 6:45 [facility] ID: [id number]: DANIEL Macielervice: Orthopaedic SurgeryAuthor Type: ResidentType: Progress NotesFiled: 07/02/2017 8:40 AMNote Text:ORTHOPAEDIC POSTOP PROGRESS NOTESUBJECTIVEPatient states that they are comfortableWell Controlled knee(s) pain.Denies incisional pain.OBJECTIVEVITAL SIGNS: BP 112/63 Pulse 80 Temp 37.2 ?C (98.9 ?F) (TemporalArtery) Resp 18 Ht 180.3 cm (5' 11 ) Wt 113.4 kg (250 lb) SpO2 95% BMI 34.87 kg/m6WHWHMF AND OUTPUT:Intake/Output Summary (Last 24 hours) at 07/02/17 0839Last data filed at 07/02/17 0700 Gross per 24 hourIntake 3170 mlOutput 2725 mlNet 445 mlPHYSICAL EXAMINATION:Right Lower Extremity: Dorsalis pedis pulses palpable. Posterior tibialpulses palpable. Dorsi flexion 5/5. Plantar flexion 5/5. Extensor hallucis extension: 5/5. Sensory intact to light touch L1-S1. Dressing clean, dry and intact. Surgical site no drainage and Silverlonintact.Problem Review and Assessment: Patient monitored, no new events overnight.LABS:Recent Labs 446HB 10.9*HCT 34.4*DATA:Diagnostic tests reviewed for today's visit:Most recent labsASSESSMENT/PLANS/P Procedure(s) (LRB):ARTHROPLASTY REPLACE JOINT TOTAL KNEE (Right) on 07/01/2017-ID consultnot needed at this time-Antibiotics:--Pre-Operative Nasal Swab Screening:---Staph a.: Negative---MRSA: Negative---Pre-Treatment with [...] Dr. Swati Fiore or his PA in cli kwame:---SHRAVAN Vogt-CACTIVE PROBLEM LISTSPRAIN OF NECK ()Spinal Stenosis in Cervical RegionBrachial Neuritis Or RadiculitisDisplacement of Thoracic Intervertebral Disc Without MyelopathyCarpal Tunnel SyndromeSPRAIN OF NECK ()Displacement of Cervical Intervertebral Disc Without Myelo pathyBrachial Neuritis Or Radiculitis NOSSpinal Stenosis, Lumbar Region, Without Neurogenic ClaudicationRotator Cuff Syndrome of Shoulder and Allied DisordersPsychosexual Dysfunction, UnspecifiedUrgency of UrinationOther and Unspecified Malignant Neoplasm of Skin of LipImpotence of Organic OriginFre quency of UrinationSlow Urinary StreamMicrostomiaHypertrophy of Prostate With Urinary Obstruction and Other Lower UrinaryTract Symptoms (Luts)Postlaminectomy Syndrome of Lumbar RegionGlenohumeral ArthritisPrimary Osteoarthritis of Left KneeType 2 Diabetes Mellitus Without Complication, Without Long-Term CurrentUse of Insulin (Hcc)Chronic Pain SyndromeCopd With Chronic Bronchitis (Hcc)Arthritis ofKneePrimary Osteoarthritis of Right KneeOa (Osteoarthritis) of KneePOST OPERATIVE COMPLICATIONS:Complicated by: uneventful/noneFor Documentation:This procedure is considered Major Orthopedic Surgery and is exempt fromthe new law regarding narcotic prescription quantity limitations.SIGNATURE: Rafy Ugarte MD PATIENT NAME: Alisia Correa AlejandroDATE: July 02, 2017 : 8:40 AM PAGER/CONTACT #: [phone] discuss medical issues with medical co- management physicianOrthopedic issue please page me first, [phone] 6pm and on weekends please contact Mitzy Pierce On-Call [phone] Osteopathic Hospital NT [phone] NTHNO ID: [id number]: Nellie (Pt) Jerseyervice: Physical TherapyAuthor Type: Physical TherapistType: Therapy (PT/OT/Speech/Resp)Filed: 07/02/2017 3:04 PMNote Text:PHYSICAL THERAPY MISSED VISITSERVICE DATE: 07/02/2017SERVICE TIME: 1330 to 1335ROOM: [id number] Treatment. Patient not seen due to Declined. Preparing to go toOT for car transfer. Denied questions/concerns from PT standpoint. Clearedafter morning session for D/C home today.SIGNATURE: Nellie David PT PATIENT NAME: Alisia Correa .DATE: July 02, 2017 : 3:01 PM PAGER/CONTACT #: [phone] Jewish HospitalTHERAPY NTHNO ID: [id number]: Rebecca (Ot) RAMSES Tarangoervice: Occupational TherapyAuthor Type: Occupational TherapistType: Therapy (PT/OT/Speech/Resp)Filed: 07/02/2017 2:43 PMNote Text:Occupational TherapyTreatmentSERVICE DATE: 07/02/2017SERVICE TIME: 1413 to 1437ROOM: [id number] Discharge Disposition: Home OTRecommended Discharge Disposition Comments: [...] Clicks Score: 23Precautions/Activity Restrictions: Total Knee Replacement;Weight BearingRestrictionsPrecaution/Activity Restriction Comments: ambulate on unit with walker andstaff assist as toleratedExtremity With Weight Bearing Restricted: Right Lower ExtremityRight Lower Extremity Weight Bearing Status: WBATASSESSMENT:Patient is safe to discharge from acute care setting via car from OTperspective.Patient is s/p elective RTKR and demonstrates impaired self care andfunctional mobility.Patient requires skilled OT intervention to maximize independence/safetywith ADLs, IADLs, functional mobility, and to educate on precautions andadaptivetechniques/equipment .Tolerated Full SessionOccupational Therapy Problem List: Edema;Pain;Safety Deficits;ImpairedSelf Care;Decreased Activity Tolerance;Decreased Range Of Motion;DecreasedStrength;Functional Mobility Impairment;Balance ImpairedPatient /Caregiver Goals: Walk;Go HomeGoals for Plan ofCare:Lower Body Bathing with: Modified IndependentLower Body Dressing with: Modified IndependentToilet Hygiene with: Modified IndependentChair Transfer with: Modified IndependentToilet Transfer with:Modified IndependentShower Transfer with: SupervisionTub Transfer with: SupervisionTransfer: SBA with car transfer using compensatory techniqueProgress Toward Goals: Progressing as expectedRehab Potential: ExcellentPLAN:Treatment Frequency (times per week): 5 Current admissionTreatment Interventions: Education;Self Care / Home Management;JointMobility;Strengthening;Functional Mobility Training;BalanceTraining;Neuromuscular Re-education;Edema Management;Pain ManagementPlan of Care developed with: PatientTREATMENT INTERVENTIONS:Therapy Diagnosis: Reduced mobility-other;Decreased activities of dailyliving (ADL);Muscle Weakness (generalized);Difficultywalking- musculoskeletalInterventions Provided: Therapeutic Activity (44569)Therapeutic Activity (93441) Treatment Minutes: 242 unitsSkilled Intervention(s): Instruction in sit to and from stand techniquewith proper hand placement and body positioning at edge of bed/chair.Instruction, demonstration to pt on safe transfer technique to car. Ptwith repeat demonstration using car simulator. Pt at supervised level.Instruction on walker safety inthe home, use of bag or basket to carryitems. Education on keeping pathways clear, wearing proper fo otwear.Pt donned both shoes using long handled shoe horn with minimalinstruction. Indep with tying shoes.Total Timed Code Treatment Minutes: 24Total Treatment Time (minutes): 24FUNCTIONAL G CODE:OT 6Clicks Score: 23 (07/02/17 1413)Self Care Current Status [...] 0 (Has bedroom/bathroom on first floor)Tub/Shower Type: Walk-inshower with shower seat, grab bars, HHSHLaundry: Washer/dryer are on first floorEquipment Owned: Cane;Commode-Raised;Grab Bars-Shower;Hand HeldShower;Long Handled Shoe Horn;Long Handled Sponge;WheeledWalker;Clinical Lab Technologist;Sock Aide;Shower ChairPrior Functional Level: Within Functional LimitsOBJECTIVE:Responsiveness: Alert;AwakeFollows Commands: 3-step CommandsMini Cog Score: 5 [...] By AssistanceSupine to Sit Stand By AssistanceSit toSupine Stand By AssistanceScooting Stand By AssistanceSit to Stand Stand By AssistanceStand to Sit Stand By AssistanceBed to Chair Stand By Assistance Stand PivotWheeled WalkerToilet/Commode Stand ByAssistanceFunctional Mobility Stand By Assistance Wheeled WalkerCar Transfer: SupervisionBalance: St atic Sitting;Dynamic Sitting;Static Standing;Dynamic StandingStatic Sitting Balance: Modified IndependentDynamic Sitting Balance: Modified IndependentStatic Standing Balance: Stand By AssistanceDynamic Standing Balance: Stand By AssistanceActivity Tolerance: Standing ActivityStanding Activity: Clothing managementStanding Activity Tolerance (in minutes): 2Please see discipline specific clinical documentation flowsheet forcomplete details for this therapy evaluation/treatment.SIGNATURE: INDU Licona/Kenny PATIENT NAME: Alisia Correa Sr.DATE: July 02, 2017 : 2:40 PM PAGER: [phone] HospitalO ID: [phone]: Watson JerryOt/Kenny) RAMSES Connellyervice: Occupational TherapyAuthor Type: Occupational TherapistType: Therapy (PT/OT/Speech/Resp)Filed: 07/02/2017 11:48 AMNote Text:Occupational Therapy EvaluationSERVICE DATE: 07/02/2017SERVICE TIME: 1036 to 1118ROOM: [id number] Discharge Disposition: Home OTRecommended Discharge Disposition Comments: Recommending home health PT/OTat discharge to help patient increase independence with self-care tasksand IADL performance.Anticipated Discharge Needs: Supervision at Home;EquipmentPhysical Assist at Home for: StairsSupervision at Home due to: Other: See Comment (Patient is at a higherrisk for falls.)Recommended Discharge Equipment:No equipment needs anticipatedOT Recommendations to Nursing: Assist of 1 person to bathroom forADL?s;Encourage patient participation in ADL?s;OOB for mealsOT 6 Clicks Score: 21Precautions/Activity Restrictions: Total Knee Replacement;Weight BearingRestrictionsPrecaution/Activity Restriction Comments: ambulate on unit with walker [...] states has been present for 8 months, andpa tient is seeing a neurologist for this issue. [...] Edema;Pain;Safety Deficits;ImpairedSelf Care;Decreased Activity Tolerance;Decreased Range Of Motion;DecreasedStrength;Functional Mobility Impairment;BalanceImpairedPatient /Caregiver Goals: Walk;Go HomeGoals for Plan of Care:Lower Body Bathing with: Modified IndependentLower Body Dressing with: Modified IndependentToilet Hygiene with: Modified IndependentChair Transfer with: Modified IndependentToilet Transfer with: Modified IndependentShower Transferwith: SupervisionTub Transfer with: SupervisionTransfer: SBA with car transfer using compensatory techniqueProgress Toward Goals: Progressing as expectedRehab Potential: ExcellentPLAN:Treatment Frequency (times per week): 5 Current admissionTreatment Interventions: Education;Self Care / Home Managem ent;JointMobility;Strengthening;Functional Mobility Training;BalanceTraining;Neuromuscular Re-education;Edema Management;Pain ManagementPlan of Care developed with: PatientTREATMENT INTERVENTIONS:Therapy Diagnosis: Reduced mobility-other;Decreased activities of dailyliving (ADL);Muscle Weakness (generalized);Difficultywalking- musculoskeletalInterventions Provided: Evaluation;Therapeutic Activity ( 69339);Self CareHome Management (51248)$ Evaluation-Low (14986) Billed Units: 1 unitTherapeutic Activity (47289) Treatment Minutes: 101 unitSkilled Intervention(s): Instructed patient [...] of time to perform transfers due to stiffne ss and pain in Rknee.Instruction in stand to sit technique with lower extremities touchingchair/bedand reaching back for surface with SBA to ensure patient able tocontrol descent when sitting down.Provided SBA with stand pivot transfers using wheeled walker between bedand chair.Self Fci Management (89461) Treatment Minutes: 171 unitSkilled Intervention(s): Instructed in post- op instructions during ADLs asrelative to TKR precautions [...] Tool, the G code and corresponding severity adria fiers aredocumented above.SUBJECTIVE:Current Hospital Course: Chart reviewed; Patient is a 56 year old male whois s/p R TKR. PMHx significant for Durbin's esophagus; rib fracture;asthma; sleep apnea; multiple surgeries; gastric bypass; OA; L TKR112/08/2012; L TKR revision 04/27/17.Patient Report: Ihad a knee revision in April so I am pretty prepared. Home EnvironmentPatient Lives With: Significant OtherAssistance Available: PRNEntry To Home: Stairs;With RailNumber Of Stairs Into Home: 2Number Of Stairs To Bed/Bath: 0 (Has bedroom/bathroom on first floor)Tub/Shower Type: Walk-in shower with shower seat, grab bars, HHSHLaundry: Washer/dryer are on first floorEquipment Owned: Cane;Commode-Raise d;Grab Bars-Shower;Hand HeldShower;Long Handled Shoe Horn;Long Handled Sponge;WheeledWalker;Clinical Lab Technologist;Sock Aide;Shower ChairPrior Functional Level: Within Functional LimitsOBJECTIVE:Responsiveness: Alert;AwakeFollows Commands: 3-step CommandsMini Cog Score: 5 (07/02/17 1036)CURRENT FUNCTIONAL STATUS:C urrent Activities of Daily Living Assist LevelFeeding IndependentGrooming Modified IndependentBathing Upper Body Modified IndependentBathing Lower Body Stand By AssistanceDressing Upper Body ModifiedIndependentDressing Lower Body Stand By AssistanceToileting Stand By [...] documentation flowsheet forcomplete details for this therapy evaluation/treatment.SIGNATURE: CARMEN Garcia PATIENT NAME: Alisia Correa .DATE: July 02, 2017 : 11:33 AM PAGER: [phone] Hospital ID: [phone]: Nellie (Pt) AddiddyService: Physical TherapyAuthor Type: Physical TherapistType: Therapy (PT/OT/Speech/Resp)Filed: 07/02/2017 11:05 AMNote Text:Physical Therapy TreatmentSERVICE DATE: 07/02/2017SERVICE TIME: 917 to OOM: [id number] Discharge Disposition: Home PTAnticipated Discharge Needs: Physical Assist at Home;Supervision at HomePhysical Assist at Home for: StairsSupervision at Home due to: (recent surgery)Recommended Discharge Equipment: No equipment needs anticipatedPT Recommendations to Nursing: Ambulate with device;To bathroom;Inhalls;With assist of 1 person;OOB for mealsAmbulation Device: Wheeled WalkerPT 6 Clicks Score: 20Precautions/Activity Restrictions: Total Knee Replacement;Weight BearingRestrictionsPrecaution/Activity Restriction Comments: ambulate on unit with walker andstaff assist as toleratedExtremity With Weight Bearing Restricted: Right Lower ExtremityRight Lower Extremity Weight Bearing Status: WBATASSESSMENT :Pt c/o 8/ pain but mobilizing well and able to participatethroughout session and stair training. Pt cleared from PT standpoint Diaz/C home today with assist and home PT.Tolerated Full SessionPhysical Therapy Problem List: Pain;Safety Deficits;Impaired SelfCare;Decreased Activity Tolerance;Decreased Range Of Motion;DecreasedStrength;Functional Mobility Impairment;Balance ImpairedPatient /Caregiver Goals: Walk;Go HomeGoals for Plan of Care:Able to perform HEP with: IndependentRolling with: Modified IndependentTransfer supine to/from sit with: Modified IndependentTransfer sit to/from stand with: SupervisionAmbulate with: SupervisionDistance: 150 feetDevice: Wheeled WalkerAmbulate up and down curb s tep with: Stand By AssistanceDevice: WalkerAmbulate up and down steps with: Stand By AssistanceNumber of steps: 6Device: Cane;RailROM: 0-90*Progress Toward Goals: Progressing as expectedRehab Potential: GoodPLAN:Treatment Frequency (times per week): 7 Current admissionTreatment Interventions: Education;Self Care / Home Management;EnergyConservation Training;Joint Mobility;Strengthening;FunctionalMobilityTraining;Balance TrainingPlan of Care developed with: PatientTREATMENT INTERVENTIONS:Therapy Diagnosis: Reduced mobility-otherInterventions Provided: Therapeutic Exercise (32975);Therapeutic A ctivity(29789);Gait Training (82593)Therapeutic Exercise (35245) Treatment Minutes: 201 unitSkilledIntervention(s): Instruction in therapeutic exercise seated andsupine TKR exercisesVerbal and tactile cuing provided .Education in HEp and TKR bookletTherapeutic Activity (46455) Treatment Minutes: 101 unitSkilled Intervention(s): Instructed patient in sit to supine using safe,effective techniqueEducation with POC, precautions, home management and set up, nonpharm paincontrol techniques, nonpharmpain control techniques, conservation ofenergy techniquesGait Training (34941) Treatment Minutes: 242 unitsSkilled Intervention(s): Instruction in sit to stand technique with properhand placement andbody positioning at edge of bed/chair, Instruction instand to sit technique with LE's touching chair/bed and reaching back forsurface, Instruction in sequencing, gait pattern, Instruction incorrection of gait deviations, Instruction in WB precautions, Instructionin stair negotiation, Instruction inuse of equipment, cues for sequenceand pattern and posture, balance, safety, equipmentTotal Timed Code Treatment Minutes: 54Total Treatment Time (minutes): 54SUBJECTIVE:Current Hospital Course: Chartreviewed and no significant medical updatesrelevant to therapy were notedPatient Report: I know what excruciating pain is Pt recalls incidentwhen he was 18 years old and was crushed beneath an ironplate at workrequiring prolonged ICU stay and intense therapy after.Home EnvironmentPatient Lives With: Significant OtherAssistance Available: PRNEntry To Home: StairsNumber Of Stairs Into Home: 2 (pl atform)Number Of Stairs To Bed/Bath: 0Equipment Owned: Cane;Wheeled WalkerPrior Functional Level: Within Functional Limits (ambulated with cane vswalker)OBJECTIVE:CURRENT FUNCTIONAL STATUS:Current Functional Mobility Assist Level Additional InformationRollingSupine to Sit SupervisionSit to Supine Stand By Assistance (with use of sheet as leg global clinical leader after 2trials)Scooting Modified IndependentSit to Stand Stand By Assistance (from EOB)Stand to Sit SupervisionBed to Chair SupervisionToilet/CommodeSupervisionGait Supervision Gait Device: Wheeled Walker Gait Distance (feet): 125 feet x 1StairsCurb Step Contact Guard Assistance Walker (x 2 trials)Car TransferGait Deviations Right Lower Extremity: Weight bearing decreased;Stancetime decreased;Heel strike during initial stance decreased;Push-offduringterminal stance decreased;Step length decreasedGeneral Gait Deviations: Adriana decreased;Shuffling Gait;Flexed trunkposture (step to)Please see discipline specific clinical documentation flowsheet forcomplete details for this therapy evaluation/treatment.SIGNATURE: Nellie David PT PATIENTNAME: Alsiia Correa .DATE: July 02, 2017 : 10:58 AM PAGER/CONTACT #: [phone] Medical CenterANES Brian [phone] POSTHNO ID: [id number]: Lora Knox IIService: AnesthesiologyAuthor Type: AnesthesiologistType: Anesthesia PostOpFiled: 07/01/2017 11:34 AMNote Text:POST ANESTHESIA EVALUATION NOTESERVICE DATE: 2016SERVICE TIME: 1134DOB: 1960Vitals: 07/01/1709Temp: (!) 35.9 ?C (96.6 ?F) 37 ?C (98.6 ?F) 36.8 ?C (98.2 ?F) 07/01/1710BP:123/67 138/76 116/79 120/67 07/01/1710Pulse: 73 74 79 80 07/01/1710Resp: 16 16 16 16 07/01/1710SpO2: 92% 97% 99% 98%Validated Vital Signs: YesPOST ANES STATUS: No apparent anesthetic complications. The patient isappropriately hydrated with stable respiratory and cardiovascular status.Patient has safe and adequate airway control. The patient has appropriatepain relief and nosignificant post operative nausea or vomiting. Thepatient has achieved baseline mental status.Further assessment by Anesthesia Service: NoneOther Remarks:SIGNATURE: Lora Knox II, DO PATIENT NAME: Alisia Correa .DATE: July 01, 2017 : 11:34 AM PAGER/CONTACT #: 000NormMercy Health St. Vincent Medical CenterANES PREOPon [id number] PREOPHNO ID: [id number]: Lora Monterovice: AnesthesiologyAuthor Type: AnesthesiologistType: Anesthesia PreOpFiled: 07/01/2017 7:13 AMNote Text: ANESTHESIOLOGY DAY OF SURGERY NOTESERVICE DATE: 07/01/2017SERVICE TIME: 710DOB: 1960Procedure(s) (LRB):ARTHROPLASTY REPLACE JOINT TOTAL KNEE (Rig ht)Surgeon(s):Swati FioreEstimated body mass index is 34.87 kg/(m2) as calculated from thefollowing: Height as of 06/17/17: 180.3 cm (5' 11 ). Weight as of 06/17/17: 113.4 kg (250 lb).Most recent hematocrit and potassium results:Hematocrit 40.0 06/17/2017Potassium 4.4 06/17/2017ANES DOS/PREOP NOTE:V itals: 150952RA: 115/74Pulse: 67Resp: 16Temp: (!) 35.9 ?C (96.6 ?F)TempSrc: Temporal ArterySpO2: 99%ACTIVE PROBLEM LISTSPRAIN OF NECK ()Spinal Stenosis in Cervical RegionBrachial NeuritisOr RadiculitisDisplacement of Thoracic Intervertebral Disc Without MyelopathyCarpal [...] obstruction and other lower urinarytract symptoms (LUTS) Hypertrophyof the prostate with obstruction- Impotence, organic- Unspecified asthma(493.90)- Unspecified sleepapnea Last us 2003, pt was 380 lbs at that time- Urinary calculus, unspecified Renal stonesPAST SURGICAL HISTORYProcedure Laterality Date- COLONOSCOP W/ OR W/O [facility] SPEC Colonoscopy- EGD W/O OR W/BRUSH/WASH [...] PAST SURGICAL HISTORY OF 10/29 cyst removed fromback S1- TISSUE REARR LIP,EAR,EYE GT 10 SCM 08/06/2010 [facility] by [facility]- TOTAL KNEE REPLACEMENT Left 2012 with revision 04/27/2017- VASECTOMYFAMILY HISTORYProblem Relation Age of Onset- Hypertension Paternal Grandmother- Hypertension Paternal Grandfather- Diabetes Maternal Grandfather- Diabetes Paternal Grandmother- Cancer Paternal Grandfather- Cancer Paternal Uncle 6UNCLES FROM LUNG CASocial History:Social HistorySubstance Use Topics- [...] to scheduled surgeryand including morning of scheduled surgery.budesonide- formoterol (SYMBICORT) 160-4.5 mcg/actuation inhaler Inhale 2Puffs as instructed twice daily.DULoxetine (CYMBALTA) 60 mg capsule Take 1 capsule by mouth once daily.sucralfate (CARAFATE) 1 gram tablet Take 1 tablet by mouth four timesdaily.MULTIVIT-MIN/FA/LYCOPEN/LUTEIN (CENTRUM SILVER ULTRA MEN'S ORAL) Take 1tablet by mouth once daily.gabapentin (NEURONTIN) 600mg tablet Take 600 mg by mouth three timesdaily. Take 2 caps 3x/dayaspirin, enteric coated (ECOTRINLOW STRENGTH) 81 mg ORAL EC tablet Take81 mg by mouth once daily.amitriptyline 25 mg ORAL tablet Take 50 mg by mouth daily at bedtime.diclofenac-misoprostol (ARTHROTEC 75) 75-200 mg-mcg ORAL per tablet Take 1tablet by mouth twice daily.tamsulosin (FLOMAX) 0.4 mg ORAL Cp24 Take 2 capsules by mouth daily atbedtime.Albuterol Sulfate 1.25 mg/3 mL INHALATION nebulizer solution VIA NEBULIZER PRNALBUTEROL 90 MCG/ACTUATION AEROSOL INHALER Inhale one(1) - two(2) puffsfour(4) times a day as needed for wheezing and shortness of breath.acarbose(PRECOSE 25 MG TAB) Take one(1) tablet three(3) times daily.ME TFORMIN 500 MG TAB Take one(1) tablet twice daily.potassium citrate (UROCIT-K 10) 10 mEq ORAL TbSR Take one(1) tablet threetimes daily.cyclobenzaprine (FLEXERIL) 10 mg tablet Take 1 tablet by mouth twice dailyas needed.Current Facility-Administered Medications:celecoxib 200 mg cap(s) (CeleBREX) 200mg ORAL Pre-Op Once Burak Pablo)Rotunolidocaine (PF) 10 mg/mL (1 %) 1-2 mg injection (XYLOCAINE) 0.1-0.2 mLINTRADERMAL PRN Burak Pablo) Rotunolactated ringers infusion 5-30 mL/hr INTRAVENOUS CONTINUOUS Burak Pablo)RotunoceFAZolin 2 g in dextrose (iso-osmotic) 100 mL (ANCEF, KEFZOL) 2 gINTRAVENOUS ONCE Burak Pablo) Rotunotranexamic acid 1,000 mg in NaCl 0.9% 100 mL (CYKLOKAPRON) 1,000 mgINTRAVENOUS ONCE Burak (Pa) Rotunotranexamic acid 1,000 mg in NaCl 0.9% 100 mL (CYKLOKAPRON) 1,000 mgINTRAVENOUS ONCE Burak (Shravan) RotunoAllergies:ALLERGIESAllergen Reactions- Avelox [Moxifloxaci* Rash, Hives, Itching, Shortness of Breath- Celebrex [Celecoxib] Rash, Hives, GI Upset- Erythromycin Base Hives,Shortness of Breath- Klonopin [Clonazepa* Itching- Levaquin [Levofloxa* HivesDOS EXAM: Adequate NPOstatus: YesAnesthetic risks, benefits, alternatives, personnel and consent discussed:YesPatient agrees to proceed: YesPrevious Anesthesia: No history of adverse event.Airway Assessment: MP 1; Neck ROM: Limited Extension; Airway Evaluation:No significant abnormalitiesSymptoms of Sleep Apnea: Age over 50 (56 year old), Neck circumference >15.75 inches and Male genderDentition: EdentulousAdditional Physical Exam:Lungs: Lungs clear to auscultation. Good diaphragmatic excursion.Cardiac: normal S1and S2; no rubs, no murmurs, and no gallopsAdditional Pertinent Findings: N/ABlood Products: Not anticipated for this procedure.Anesthetic Plan: General, Standard ASA MonitorsPain Management Plan: Parenteral or Oral and Peripheral Nerve BlockASA Class: 3Other Medical Problems: NoneChronic Beta Ching medication administered within 24 hours: N/AI have interviewed and examined the patient. I have reviewed the medicalrecord and/or the pre-anesthesia evaluation, pertinent labs, and testresults.Sign ificant changes in the patient's condition since the History andPhysical, not otherwise documented in primary service progress notes: NoThis contains updated information obtained within 48 hours ofSurgery/Procedure.SIGNATURE: Lora Knox II, DO PATIENT NAME: Alisia Correa .DATE: July 01, 2017 : 7:11 AM CSN: [id number] HospitalBRIEF OP NOTon [id number] OP NOTHNO ID: [id number]: Tyron Lebronice: Orthopaedic SurgeryAuthor Type: PhysicianType: Brief Op NoteFiled: 07/01/2017 9:44 AMNote Text:TOTAL KNEE ARTHROPLASTYBRIEF OPERATIVE / PROCEDURE NOTELOG ID: [id number]/Procedure Date: 07/01/2017Incision/Procedure Start Time: 8:12 AMIncision Close/Procedure End Time:Surgeon(s)/Proceduralist(s) and Rn Advice(s):Surgeon(s) and Role: * Swati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 AddiddyService: Physical TherapyAuthor Type: Physical TherapistType: Therapy (PT/OT/Speech/Resp)Filed: 07/01/2017 4:47 PMNote Text:Physical Therapy EvaluationSERVICE DATE: 07/01/2017SERVICE TIME: 1545 to 1630ROOM: [id number] Discharge Disposition: Home PTAnticipated Discharge Needs: Physical Assist at Home;Supervision at HomePhysical Assist at Home for: StairsRecommended Discharge Equipment: No equipment needs anticipatedPT Recommendations to Nursing: Ambulate with device;To bathroom;Inhalls;With assist of 1 person;OOB for mealsAmbulation Device: Wheeled WalkerPT 6 Clicks Score: 20Precautions/Activity Restrictions: Total Knee Replacement;Weight BearingRestrictionsPrecaution/Activity Restriction Comments: ambulate on unit with walker andstaff assist as toleratedExtremity With Weight Bearing Restricted: Right Lower ExtremityRight Lower Extremity Weight Bearing Status: WBATASSESSMENT :Pt presents with impaired tolerance to activity, functi onalmobility and R knee strength/ROM following R TKR. [...] Modified IndependentTransfer supine to/from sit with: Modified IndependentTransfersit to/from stand with: SupervisionAmbulate with: SupervisionDistance: 150 feetDevice: Wheeled WalkerAmbulate up and down curb step with: Stand By AssistanceDevice: WalkerAmbulate up and down steps with: Stand By AssistanceNumber of steps: 6Device: Cane;RailROM: 0-90*Rehab Potential: GoodPLAN:Treatment Frequency (times per week): 7 Current admissionTreatment Interventions: Education;Self Care / Home Management;EnergyConservation Training;Joint Mobility;Strengthening;Functional MobilityTraining;Balance TrainingPlan of Care developed with: PatientTREATMENT INTERVENTIONS:Therapy Diagnosis: Reduced mobility-otherInterventions Provided: Evaluation;Gait Training (16110);TherapeuticActivity (43925)$ Evaluation-Low (06782) Billed Units: 1 unitTherapeutic Activity (52805) Treatment Minutes: 121 unitSkilled Intervention(s): Instructed patient in supine to sit pushing withupper extremities to sit upEducation with POC, precautions, TKR booklet, nonpharm pain controltechniques, toileting, assistedto jose underwear, home management and setupGait Training (20080) Treatment Minutes: 131 unitSkilled Intervention(s): Instruction in sit to stand technique with properhand placement and body positioning at edge of bed/chair, Instruction instand to sit technique with LE's touching chair/bed and reaching back forsurface, Instruction in sequencing, gait pattern, Instruction incorrection of gait deviations, Instruction in WB precautions, Instructionin use of equipment, cues for sequence and patternand posture, balance,conservation of energy techniquesTotal Timed Code Treatment Minutes: 25Total Treatment Time (minutes): 45FUNCTIONAL G CODE:PT 6 Clicks Score: 20 (07/01/17 1545)Mobility: Walking and Moving Around Current Status (G8978): CJ (545)Mobility: Walking and Moving Around Goal Status [...] (left) thisapril Home EnvironmentPatient Lives With: Significant OtherAssistanceAvailable: PRNEntry To Home: StairsNumber Of Stairs Into [...] documentation flowsheet forcomplete details for this therapy evaluation/treatment.SIGNATURE: Nellie David PT PATIENT NAME: Alisia Correa Sr.DATE: July 01, 2017 : 4:41 PM PAGER/CONTACT #: [phone] Jewish HospitalNURSING PROG on [id number] PROGHNO ID: [id number]: Renae Cox (Rn) Burak, RNService: (none)Author Type: Registered NurseType: Nursing Progress NoteFiled: 06/19/2017 10:02 AMNote Text:PACC visit 06/17/17. H/O SDM,BMI35,YOLA,COPD/asthma. 06/17/17 nasalcANDs(-),ts,ferritin a1c, cbc/d,bmp,iron studies. 04/15/17 ekg. 05/20/17 kneexr. Chartcheck complete. Negrete [facility] and Differentialon 02-63-1223Nhq Baso0.03 k/uLNormal0.00-0.10[facility] Comment on above:Performed By: #### CMP, IRON, CBCDIF ####[address] [phone]#### FERR, HBA1C ####[facility] Yoifnbugflib[address] [place], [place] [phone] Mono0.35 k/uLNormal0.00-0.86LutAshtabula General HospitalComment on above:Performed By: #### CMP, IRON, CBCDIF ####[address] [id number] #### FERR, HBA1C ####[facility] [place], [place] [phone] Neut2.15 k/uLNormal1.45-7.50[facility] HospitalComment on above:Performed By: #### CMP, IRON, CBCDIF ####[place] [phone]#### FERR, HBA1C ####[place] [address] [address] AveCKatelyn Ville [phone]/100 WBC Auto (Bld)0.8 %NormalOhiohealth Doctors Hospital HospitalComment on above:Performed By: #### CMP, IRON, CBCDIF ####[place] [phone]#### FERR, HBA1C ####[place] [address] [address] AveCKatelyn Ville [phone] 10*3/uLNormal0.00-0.45[facility] HospitalComment on above:Performed By: #### CMP, IRON, CBCDIF ####[place] [address] #### FERR, HBA1C ####[place] [address] [address] AveCKatelyn [place]ille [phone]/100 leukocytes4.9 %[facility] HospitalComment on above:Performed By: #### CMP, IRON, CBCDIF ####[place] [phone]#### FERR, HBA1C ####[place] [address] [address] AveCBrian Ville [phone] distribution width Auto Ratio (RBC)14.3 %Normal 11.5-15.0[facility] HospitalComment on above:Performed By: #### CMP, IRON, CBCDIF ####[place] [phone]#### FERR, HBA1C ####[place] [address] [address] [place] AveCKatelyn [place]ille [phone] (RBC)0.0 /100 RWMZvpypo2Fbtcsioh HospitalComment on above:Performed By: #### CMP, IRON, CBCDIF ####[place] [phone]#### FERR, HBA1C ####[place] [address] [address] [place] AvMelissa [place] [phone] (RBC) 4.35 10*6/uLNormal4.20-6.00[facility] HospitalComment on above:Performed By: #### CMP, IRON, CBCDIF ####[place] [phone]#### FERR, HBA1C ####[phone] (HCT)40.0 %Fvrybq21.0-51.0 [facility] HospitalComment on above:Performed By: #### CMP, IRON, CBCDIF ####[place] [phone]#### FERR, HBA1C ####[phone] mass conc (Bld)12.8 g/dLLow13.0-17.0[facility] HospitalComment on above:Performed By: #### CMP, IRON, CBCDIF ####[place] [phone]#### FERR, HBA1C ####[place] [address] [address] [phone] 10*3/uLNormal1.00-4.00[facility] HospitalComment on above: Performed By: #### CMP, IRON, CBCDIF ####[place] [phone]#### FERR, HBA1C ####[place] [address] [address] [place] Av[place] [phone]/100 bxfcfxqegr76.5 %NormalLutheran HospitalComment on above:Performed By: #### CMP, IRON, CBCDIF ####[place] [phone] #### FERR, HBA1C ####[place] [address] [place] [phone] lDYbxpaf67.0-34.0[facility] Comment on above:Performed By: #### CMP, IRON, CBCDIF ####[place] [phone]#### FERR, HBA1C ####[place] [phone] mass conc (RBC)32.0 g/iREfvqcl49.5-36.0Lutheran HospitalComment on above:Performed By: #### CMP, IRON, CBCDIF ####[place] [phone]#### FERR, HBA1C ####[place] [phone] rMCtqctm38.0-100.0Lutheran HospitalComment on above:Performed By: #### CMP, IRON, CBCDIF ####[place] [phone]#### FERR, HBA1C ####[place] [address] [place] [phone]/100 leukocytes9.1 %NormalLutheran HospitalComment on above: Performed By: #### CMP, IRON, CBCDIF ####[place] [phone]#### FERR, HBA1C ####[address]ille [phone]/100 WBC Auto (Bld)55.7 %NormalLutchillicothe hospital HospitalComment on above:Performed By: #### CMP, IRON, CBCDIF ####[place] [phone] #### FERR, HBA1C ####[place] [address] [place] AvMelissa [place] [phone] mean volume (PMV)12.3 fLNormal 9.0-12.7[facility] HospitalComment on above:Performed By: #### CMP, IRON, CBCDIF ####[place] [phone]#### FERR, HBA1C ####[place] [phone] 10*3/kOWflkbp254-023Jkiyrcjc HospitalComment on above:Performed By: #### CMP, IRON, CBCDIF ####[place] [phone]#### FERR, HBA1C ####[place] [phone] (Leukocytes)3.86 10*3/uLNormal3.70-11.00[facility] HospitalComment on above:Performed By: #### CMP, IRON, CBCDIF ####[place] [phone]#### FERR, HBA1C ####[place] [phone] Metabolic Panelon 69-00-8810Vrblcsa aminotransferase (ALT)14 U/LNormal5-50[facility] HospitalComment on above: Performed By: #### CMP, IRON, CBCDIF ####[place] [phone]#### FERR, HBA1C ####[place] [phone] g/dL Normal3.5-5.0[facility] HospitalComment on above:Performed By: #### CMP, IRON, CBCDIF ####[place] [address] #### FERR, HBA1C ####[place] [phone] phosphatase (ALP)95 U/UWvpqut42-752 [facility] HospitalComment on above:Performed By: #### CMP, IRON, CBCDIF ####[place] [phone]#### FERR, HBA1C ####[place] [phone] gap11 mmol/IUxohrk95-76Xsvdqtbe HospitalComment on above: Performed By: #### CMP, IRON, CBCDIF ####[place] [phone]#### FERR, HBA1C ####[place] [phone] aminotransferase (AST)18 U/LNormal7-40[facility] HospitalComment on above: Performed By: #### CMP, IRON, CBCDIF ####[place] [phone]#### FERR, HBA1C ####[place] [phone] (total)0.2 mg/dLNormal0.0-1.5[facility] HospitalComment on above:Performed By: #### CMP, IRON, CBCDIF ####[place] [address] #### FERR, HBA1C ####[place] [phone] mg/dLNormal8.5-10.5[facility] HospitalComment on above:Performed By: #### CMP, IRON, CBCDIF ####[address] #### FERR, HBA1C ####[place] [address] [place] AveCKatelyn [place] [phone] mmol/SOjealp97-524Nolbioci HospitalComment on above: Performed By: #### CMP, IRON, CBCDIF ####[place] [phone]#### FERR, HBA1C ####[place] [address] [address] [place] [phone] mmol/LNormal 23-32[facility] HospitalComment on above:Performed By: #### CMP, IRON, CBCDIF ####[address] #### FERR, HBA1C ####[place] [address] [address] [place] [phone] mg/dLNormal0.70-1.40[facility] HospitalComment on above:Performed By: #### CMP, IRON, CBCDIF ####[address] #### FERR, HBA1C ####[place] [address] [place] AvDavid [place] [phone] (non-black) mL/min/{1.73_m2}Normal>60[facility] HospitalComment on above:Performed By: #### CMP, IRON, CBCDIF ####[address] #### FERR, HBA1C ####[place] [address] [place] AveCKatelyn [place] [phone] mass conc83 mg/oECeuzyv70-527 [facility] HospitalComment on above:Performed By: #### CMP, IRON, CBCDIF ####[place] [phone]#### FERR, HBA1C ####[place] [address] [place] [phone] molar conc4.4 mmol/LNormal3.5-5.0[facility] Hospital Comment on above:Performed By: #### CMP, IRON, CBCDIF ####[place] [phone]#### FERR, HBA1C ####[phone] g/dLNormal6.0-8.4[facility] HospitalComment on above:Performed By: #### CMP, IRON, CBCDIF ####[place] [address] #### FERR, HBA1C ####[place] [phone] mmol/HCnbolk136-167Bhimitai HospitalComment on above:Performed By: #### CMP, IRON, CBCDIF ####[place] [phone]#### FERR, HBA1C ####[address] AvDavid [place] [phone] vihzboyx83 mg/mZOvnmdp76-84Zuipqqbt HospitalComment on above: Performed By: #### CMP, IRON, CBCDIF ####[place] [phone]#### FERR, HBA1C ####[place] [phone] 23-11-5605Crzcehyv87.3 ng/cLQrbvpx36.3-565.7[facility] HospitalComment on above: Performed By: #### CMP, IRON, CBCDIF ####[place] [phone]#### FERR, HBA1C ####[place] [phone] A1con 03-49-2191Hchjdeb mass uips306 mg/dLNoWhite Hospital HospitalComment on above: Result Comment: eAG: (Estimated average glucose) is a calculated value from HgbA1c and is sales representative leather goods of the average blood glucose level in the last 2-3 month period.Performed By: #### CMP, IRON, CBCDIF ####[place] [phone]#### FERR, HBA1C ####[phone] A1c/Hemoglobin.total mass fraction (Bld)5.3 %Normal4.3-5.6[facility] Hospital Comment on above:Performed By: #### CMP, IRON, CBCDIF ####[place] [phone]#### FERR, HBA1C ####[phone] and TIBC on 58-49-0738Gxek30 ug/kUSdgdiv79-141Sxuvpsrn HospitalComment on above:Performed By: #### CMP, IRON, CBCDIF ####[place] [phone]#### FERR, HBA1C ####[phone] ug/gVNtcass329-204Ndcpfyxh HospitalComment on above:Performed By: #### CMP, IRON, CBCDIF ####[place] [phone]#### FERR, HBA1C ####[facility] [address] [place] AveCKatelyn Ville [phone] Zigeitnk93 %Ghz26-46Apiregqi HospitalComment on above: Performed By: #### CMP, IRON, CBCDIF ####[place] [phone]#### FERR, HBA1C ####[facility] Paogtcvpzm[address] [place] AveCKatelyn Ville [phone] aureus PCRon 87-72-6058VPDX PCRNegativeNormalLutheran HospitalComment on above:Performed By: #### SAPCR ####[place] [phone] [place] [phone] aureus Spec SourceNasalNormalLutheran HospitalComment on above:Performed By: #### SAPCR ####[place] [phone] [place] [address] AveCKatelyn [place]ille [phone] aureus PCRNegativeNormalLutheran HospitalComment on above:Performed By: #### SAPCR ####[place] [phone] [place] [phone] and SCR (30D)on 06-17-2017 ABO/RH(D)NegativeNormalLutheran HospitalComment on above:Performed By: #### TSCR30 ####[place] [phone] Antibody ScreenNegativeNormalLutheran HospitalComment on above:Performed By: #### TSCR30 ####[place] [phone] 07-31-3687EVEGQjsytah:Alisia Correa Sr.MRN: Height:5' 11 (1.803 m)Weight:250 lb (113.399 kg)Outpatient Medications as of 07/01/17:oxyCODONE IR (ROXICODONE) 5 mg immediate release tabletDexlansoprazole (DEXILANT) 60 mg CpDMmiSOPROStol (CYTOTEC) 200 mcg tableturea (CARMOL) 40 % lotnclotrimazole-betamethasone (LOTRISONE) creammupirocin (BACTROBAN) 2 % ointmentsildenafil (VIAGRA) 100 mg tablettopiramate (TOPAMAX)100 mg tablettraMADol 200 mg 24 hr tablettiZANidine [...] (CYMBALTA) 60 mg capsulesucralfate (CARAFATE) 1 gram tablet MULTIVIT-MIN/FA/LYCOPEN/LUTEIN (CENTRUM SILVER ULTRA MEN'S ORAL)gabapentin (NEURONTIN) 600 mg tabletaspirin, enteric coated (ECOTRIN LOW STRENGTH) 81 mg ORAL EC tabletamitriptyline 25 mg ORAL tabletdiclofenac-misoprostol (ARTHROTEC 75) 75-200 mg-mcg ORAL per tablettamsulosin (FLOMAX) 0.4 mg ORAL Hx10Onkzsospo Sulfate 1.25 mg/3 mL INHALATION nebulizer solutionALBUTEROL 90 MCG/ACTUATION AEROSOL INHALERacarbose(PRECOSE 25 MG TAB)METFORMIN 500 MG TABpotassium citrate (UROCIT-K 10) 10 mEq ORAL TbSRAdmission/Clinic Administered Medications as of 9/13/17:lidocaine (PF) 10 mg/mL (1 %) 1-2 mg injection (XYLOCAINE)lactated ringers infusionceFAZolin 2 g in dextrose (iso-osmotic) 100 mL (ANCEF, KEFZOL)t ranexamic acid 1,000 mg in NaCl 0.9% 100 [...] organic origin [N52.9]Frequency of urination [R35.0]Slow urinary stream[R39.198]Microstomia [Q18.5]Hypertrophy of prostate with urinary obstruction and other lower urinary tractsymptoms (LUTS) [N40.1]Postlaminectomy syndrome of lumbar region [M96.1]Glenohumeral arthritis [M19.019]Primary osteoarthritis of left knee [M17.12]Type 2 diabetes mellitus without complication, without long-term current use ofinsulin (HCC) [E11.9]Chronic pain syndrome [G89.4]COPD with chronic bronchitis (HCC) [J44.9]Arthritis of knee [M17.10]Primary osteoarthritis of right knee [M17.11]OA (osteoarthritis) of knee [M17.10]Allergies:Avelox [Moxifloxacin Hcl]Celebrex [Celecoxib]ErythromycinBaseKlonopin [Clonazepam]Levaquin [Levofloxacin]Date Verified: 07/01/17Lab ValuesLab Value Units Date High LowPOTA* 4.4 mmol/L 06/17/2017 5.0 3.5HEMA* 40.0 % 06/17/2017 51.0 39.0Progress Notes (PT FHCREJ SPORTS):Nisa Jackman, PT 06/24/2017 10:58 AM SignedPatient was seen for TKR measurements today.See flowsheet data for results of measurement.Nisa Jackman, PT, DPTProgress Notes (PRE ANES PENTECOSTALISM):Lily Porras CNP 06/17/2017 1:29 PM SignedHISTORY AND PHYSICAL EXAMINATIONSERVICE DATE: 06/17/2017SERVICE TIME: 9:03 [facility] CARE PHYSICIAN: NANCY Wolf FOR VISIT:Alisia Correa Sr. derian 56 year old male who is scheduled for right total kneearthroplasty at the request of Dr. Swati Morataya for consultation. 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 YeshydrOXYzine HCl (ATARAX) 50mg tablet every 6 hours as needed for [...] by mouth twice daily.magnesium hydroxide (MILK OF [employer] LOUIE) 400 mg/5 mL suspension Take 15 mL bymouth once daily as needed. Take if no BM > 48 hrs.mupirocin (BACTROBAN NASAL) 2 % nasal ointment Apply to inside of each naresthree times per day beginning 72 hours prior to scheduled surgery and includingmorning of scheduled surgery.budesonide-formoterol (SYMBICORT) 160-4.5 mcg/actuation inhaler Inhale 2 Puffsas instructed twice daily.DULoxetine (CYM ILANA) 60 mg capsule Take 1 capsule by mouth once daily.sucralfate (CARAFATE) 1 gram tablet Take 1 tablet by mouth four times daily.MULTIVIT- MIN/FA/LYCOPEN/LUTEIN (CENTRUM SILVER ULTRA MEN'S ORAL) Take 1 tabletby mouth once daily.aspirin, enteric coated (ECOTRIN LOW STRENGTH) 81 mg ORAL EC tablet Take 81 mgby mouth once daily.amitriptyline 25 mg ORAL tablet Take 50 mg by mouth daily at bedtime.diclofenac-misoprostol (ARTHROTEC 75) 75-200 mg-mcg ORAL per tablet [...] tablet three timesdaily.Medication Comments documented by Carla Brown LPN on 04/15/2017 [id number].Pt reports ALL Medications are accurate 04/15/17CURRENT ALLERGIES:ALLERGIESAllergen Reactions- Avelox [Moxifloxaci* Rash, Hives, Itching, Shortness of Breath- Celebrex [Celecoxib] Rash, Hives, GI Upset- Erythromycin Base Hives, Shortness of Breath- Klonopin [Clonazepa* Itching- Levaquin [Levofloxa* HivesREVIEW OF SYSTEMS:PAIN ASSESSMENT: PainPain Score: 5/10Pain Location: Knee-RightDescription: Dull;AchingDuration Amount of Time: 1Duration Units: YearsFrequency: Co ntinuousIntervention: ColdGeneral: No weight loss, malaise or fevers.Neuro: No history of TIA's, stroke, [employer] tumor, impaired sensorium, hemiplegia,paraplegia or quadraplegia. No neurological symptomsor problems., Postive forNo history of TIA's, stroke, [employer] tumor, impaired sensorium, hemiplegia,paraplegia or quadraplegia. No neurological symptoms or problems.Respiratory: Positive for Asthma, MildCOPD: daily inhalers + prn. Smoker. YOLA(doesn not use cpap)Cardiovascular: No history of HTN requiring medication, no history of angina,CHF, AK, cardiac surgery or stents. Denies rest pain, gangrene o rrevascularization/amputation for PVD. No history of cardiovascular symptoms [...] 04/28/2017 CBC (h/h: 11.7/35.8) BMP (glucose: 123, ca:8.2)Most recent ek04/15/2017 (SB)AssessmentASSESSMENTThere is no known pertinent medical condition which may affect charley-operativecourseCOPD/Asthma - daily inhalers + PRN inhaler.Smoker - 0.5ppdOSA- noncompliant with cpap.Diabetes, type 2 - on [...] Normal appearance Mallampati Score is CLASS I ULBT:Class I - Lower incisors can bite the [...] + DIFF COMP METABOLIC PANEL FERRITIN BLD IRON+ TIBC STAPH AUREUS PCR TYPE + SCREEN,30 DAY Dexlansoprazole (DEXILANT) 60 mg CpDM Sig: Take by mout h twice daily.Planned Anesthetic: Per anesthesia choiceInstructions Given to Patient:Patient given verbal and written preop instructions and voices comprehension andcompliance.SIGNATURE: Lily Porras CNP PATIENT NAME: Alisia Correa .DATE: June 17, 2017 : 9:03 AM PAGER/CONTACT #: [phone] Ellis, CNP 06/17/2017 9:48 AM AddendumPATIENT PREOPERATIVE INSTRUCTIONSSwati Fiore MD has scheduled you for your procedure at this surgerycenter:[facility]: [phone] --[address] [place] [address].You will need to call the day prior [...] 48 hours prior to surgery.- No diabetic medicationthe morning of surgery.- Accucheck day of surgery.If you start any new medications after today's visit, please contact the surgerycenter above.Important Reminders:- If you use CPAP/BIPAP, bring the machine with you to the surgery center.- If you are prescribed inhalers for breathing, continue usingthem AND bringthem to the surgery center.- Candy, mints, gum and tobacco products are NOT permittedthe morning ofsurgery.- Hearing aids, dentures and glasses may be worn the morning of surgery.- NO jewelry, body piercings, makeup, nail turkmen, hairpins or contacts are nirmal worn the day of surgery.- CHG wipes provided with instructions.- Glucerna, one can daily the five consecutive days prior to your surgery.If you develop symptoms such as a fever, cold, or flu, or have other changes toyour health within TWO DAYS of scheduled surgery or the morning of surgery,please contact the surgery centerabove.Personal Belongings:- Leave ALL valuables and money at home or with family members. Arrival Time for Surgery:- You MUST call [facility] the afternoon before surgery after3:30 pm (or Thursday for Thursday surgery) for a scheduled arrival time.Please be aware that emergency situations arise, which may delay or change yoursurgical time. If this happens, we will notify you as soon aspossible andregret any inconvenience.Lily Porras, CNPPrevious VersionChristine Sebastien Chao LPN 06/17/2017 1:29 PM SignedHCG wipes, instructions and demonstration provided this visit. Pt verbalizedunderstanding. Information for joint replacement class with dates and timesprovided. Ny Chao [facility] Vital Signs Date TimeVital SignValuePerforming [id number] 10:45-0400 Diastolic blood egomhyqb68 mm[Hg]Lyn Banks MD Work Phone: 1(710)544-[address] [place], [place] 8001310-08-2025 10:45-0400Heart rate 80 /minLyn Banks MD Work Phone: 1(917)[facility] [place], [place] 8001310-08-2025 10:45-0400Systolic blood yqmohajr52 mm[Hg]Lyn Banks MD Work Phone: 1(234)[address] [place], [place] [address]10-08-2025 09:41-0400Body .8 cmLyn Banks MD Work Phone: 1(702)025-[address] [place], [place] 8001310-08-2025 09:41-0400Body mass index (BMI) [Ratio]33.72 kg/g3CdizgmlrLyn Banks MD Work Phone: 1(968)241-[address] [place], [place] 8001310-08-2025 09:41-0400Body poaqdt648.59 kgLyn Banks MD Work Phone: 1(872)[address] [place], [place] [address]10-08-2025 09:41-0400 Respiratory rate18 /minLyn Banks MD Work Phone: 1(303)168-[facility]09-29-2025 05:00-0400Body bsufkdjfywx49.9 [degF]Ellen Crabtree DO Work Phone: 1(419)684-[address] [place], [place] 4923809-29-2025 05:00-0400 Diastolic blood mm[Hg]Ellen Kuns DO Work Phone: 1(396)3-[address] [place], [place] 4923809-29-2025 05:00-0400 Heart rate62 /minBrett Kuns DO Work Phone: 1(722)497-[address] [place], [place] 4923809-29-2025 05:00-0400 Respiratory rate18 /minBrett Kuns DO Work Phone: 1(418)6-[address] [place], [place] 4923809-29-2025 05:00-0400 SaO2% (BldA) [Mass fraction]96 %Ellen Kuns DO Work Phone: 1(634)9-[address] [place], [place] 4923809-29-2025 05:00-0400 Systolic blood noarmuzw171 mm[Hg]Ellen Kuns DO Work Phone: 1(464)[address]09-28-2025 05:54-0400 Body gqaabd065 kgBrett Kuns DO Work Phone: 1(747)[address]09-24-2025 11:06-0400 Body qkkyoc723.8 cmBrett Kuns DO Work Phone: 1(076)[address]05-29-2025 09:27-0400 Body tvpirv254.8 cmHeidy Marin MD Work Phone: 1(655)[facility]05-29-2025 09:27-0400Body mass index (BMI) [Ratio]33.72 kg/z4ZzapsyxHeidy Marin MD Work Phone: 1(374)[facility]05-29-2025 09:27-0400Body uskgkhbhxvf36.59 [degF]Heidy Marin MD Work Phone: 1(515)[facility]05-29-2025 09:27-0400Body .59 kgHeidy Marin MD Work Phone: 1(312)[facility]05-29-2025 09:27-0400Diastolic blood mm[Hg]Heidy Marin MD Work Phone: 1(141)[facility]05-29-2025 09:27-0400Heart rate 73 /minHeidy Marin MD Work Phone: 1(185)[facility]05-29-2025 09:27-4278ReW7% (BldA) [Mass fraction]93 %Heidy Marin MD Work Phone: 1(470)[facility]05-29-2025 09:27-0400Systolic blood wyhmdble980 mm[Hg]Heidy Marin MD Work Phone: 1(255)[facility]04-14-2025 14:04-0400Body uuwjpjspkgg57.1 [degF]Ellen Kuns DO Work Phone: [facility]04-14-2025 14:04-0400 Diastolic blood gqaufskt73 mm[Hg]Ellen Kuns DO Work Phone: [facility]04-14-2025 14:04-0400 Heart rate72 /minBrett Kuns DO Work Phone: [facility]04-14-2025 14:04-0400 Systolic blood mm[Hg]Ellen Kuns DO Work Phone: [facility]03-13-2025 13:57-0400 Body tmwxpa477.8 cmBrett Kuns DO Work Phone: [facility]03-13-2025 13:57-0400 Body mass index (BMI) [Ratio]33 kg/r6Pcvfk Kuns DO Work Phone: [facility]03-13-2025 13:57-0400 Body kybxch255.32 kgBrett Kuns DO Work Phone: [facility]03-13-2025 13:57-0400 Diastolic blood mm[Hg]Ellen Kuns DO Work Phone: [facility]03-13-2025 13:57-0400 Heart rate72 /minBrett Kuns DO Work Phone: [facility]03-13-2025 13:57-0400 Respiratory rate18 /minBrett Kuns DO Work Phone: [facility]03-13-2025 13:57-0400 SaO2% (BldA) [Mass fraction]97 %Ellen Kuns DO Work Phone: [facility]03-13-2025 13:57-0400 Systolic blood mm[Hg]Ellen Kuns DO Work Phone: [facility]02-10-2025 16:16-0500 Diastolic blood ftjidykx51 mm[Hg]LYN RODRI [facility]02-10-2025 16:16-0500Heart rate79 /minJENNIFER RODRI [facility]02-10-2025 16:16-0500Mean blood akdcdpiw763 mm[Hg]LYN RODRI [facility]02-10-2025 16:16-0500Respiratory rate18 /minJENNIFER RODRI [facility]02-10-2025 16:16-0500Systolic blood vefsowsu901 mm[Hg]LYN RODRI [facility]12-10-2024 18:05-0500Body cvkilmrfsoc66 [degF]Ellen Kuns DO Work Phone: [facility]12-10-2024 18:03-0500 Diastolic blood mqrdiprj86 mm[Hg]Ellen Kuns DO Work Phone: [facility]12-10-2024 18:03-0500 Heart rate59 /minBrett Kuns DO Work Phone: [facility]12-10-2024 18:03-0500 Respiratory rate20 /minBrett Kuns DO Work Phone: [facility]12-10-2024 18:03-0500 SaO2% (BldA) [Mass fraction]95 %Ellen Kuns DO Work Phone: [facility]12-10-2024 18:03-0500 Systolic blood sjrpypgg655 mm[Hg]Ellen Kuns DO Work Phone: [facility]12-10-2024 17:31-0500 Inhaled oxygen flow rate6 L/minBrett Kuns DO Work Phone: [facility]12-10-2024 15:56-0500 Body wozchm192.8 cmBrett Kuns DO Work Phone: [facility]12-10-2024 15:56-0500 Body .05 kgBrett Kuns DO Work Phone: [facility]12-10-2024 12:15-0500 Blood Pressure LocationJENNIFER RODRI [facility]12-10-2024 12:15-0500Body eyevkdubdbk30.78 [degF]LYN RODRI [facility]12-10-2024 12:15-0500Diastolic blood ctcquzkc74 mm[Hg]LYN RODRI [facility]12-10-2024 12:15-0500Heart rate65 /minJENNIFER RODRI [facility]12-10-2024 12:15-0500Respiratory rate20 /minJENNIFER RODRI [facility]12-10-2024 12:15-0500Systolic blood pprbmyqm061 mm[Hg]LYN MACE [facility]11-05-2024 11:30-0500Body caiumd303.8 cmLveronica Bowden MD Work Phone: [facility]11-05-2024 11:30-0500Body mass index (BMI) [Ratio]33 kg/o9Hgqcjkwcrowan Bowden MD Work Phone: [facility]11-05-2024 11:30-0500Body ueupso315.33 kgLarowan Bowden MD Work Phone: [facility] HospitalComment on above:patient [id number] 11:30-0500Diastolic blood kxudwpmd85 mm[Hg]Samira Bowden MD Work Phone: [facility]11-05-2024 11:30-0500Heart rate 78 /minLarowan Bowden MD Work Phone: [facility]11-05-2024 11:30-0500Systolic blood ixmyanye897 mm[Hg]Samira Bowden MD Work Phone: [facility]09-03-2024 14:11-0400Body pkgnie943.8 cm[facility]09-03-2024 14:11-0400Body mass index (BMI) [Ratio]30.1 kg/k4YcelzbpdyNorwalk Memorial Hospital09-03-2024 14:11-0400Body .25 kg[facility]09-03-2024 14:11-0400Diastolic blood vdfrwvam90 mm[Hg][facility] 06-21-2024 14:11-0400Heart rate55 /[facility] 06-21-2024 14:11-0400Respiratory rate16 /[facility] 06-21-2024 14:11-2803RvF4% (BldA) [Mass fraction]98 %[facility]09-03-2024 14:11-0400Systolic blood hkxetzhw301 mm[Hg][facility]07-09-2024 17:17-0400Body weight6 mgNorwalk Memorial Hospital05-30-2024 11:58-0400Diastolic blood mm[Hg]Heidy Marin MD Work Phone: 1(455)[facility]05-30-2024 11:58-0400Systolic blood gppdapeg526 mm[Hg]Hiedy Marin MD Work Phone: 1(705)[facility]05-30-2024 11:57-0400Body mass index (BMI) [Ratio]30.13 kg/u5NppxdoeHeidy Marin MD Work Phone: 1(583)[facility]05-30-2024 11:57-0400Body aiyzqe29.25 kgHeidy Marin MD Work Phone: 1(511)[facility]05-30-2024 11:57-0400Heart rate 70 /minHeidy Marin MD Work Phone: 1(929)[facility]05-28-2024 11:18-0400Blood Pressure LocationAurora Orzech [facility]05-28-2024 11:18-0400Body wpnijrhjzpj22.24 [degF]Pippa Orzech [facility]05-28-2024 11:18-0400Diastolic blood mm[Hg]Pippa Orzech [facility]05-28-2024 11:18-0400Heart rate73 /minAurora Orzech [facility]05-28-2024 11:18-0400Respiratory rate16 /minAurora Orzech [facility]05-28-2024 11:18-0400Systolic blood ysdlqqcd515 mm[Hg]Pippa Dakota [facility]04-25-2024 10:18-0400Diastolic blood xiaxuymu06 mm[Hg]DO Ellen Kuns Work Phone: [facility]04-25-2024 10:18-0400 Heart rate60 /minDO Ellen Kuns Work Phone: [facility]04-25-2024 10:18-0400 Respiratory rate16 /minDO Ellen Kuns Work Phone: [facility]04-25-2024 10:18-0400 SaO2% (BldA) [Mass fraction]97 %DO Ellen Kuns Work Phone: [facility]04-25-2024 10:18-0400 Systolic blood evhfdzam802 mm[Hg]DO Ellen Kuns Work Phone: [facility]04-25-2024 08:29-0400 Body .8 cmDO Ellen Kuns Work Phone: [facility]04-25-2024 08:29-0400 Body .25 kgDO Ellen Kuns Work Phone: [facility]04-24-2024 13:09-0400 Body gyhglp454.34 cmNorwalk [facility]04-24-2024 13:09-0400Body mass index (BMI) [Ratio]29.2 kg/j7RyisjcjdsNorwalk Memorial Hospital04-24-2024 13:09-0400Body ockzlc95.25 kgNorwalk [facility]04-24-2024 13:09-0400Diastolic blood advdyiri68 mm[Hg][facility] 02-10-2024 13:09-0400Heart rate67 /minNorwalk [facility] Hospital 02-10-2024 13:090400Respiratory rate16 /[facility] 02-10-2024 13:096173XpK2% (BldA) [Mass fraction]97 %[facility]04-24-2024 13:09-0400Systolic blood eqkptbvt220 mm[Hg][facility]04-11-2024 11:06-0400Body lffywl832.8 cmHeidy Marin MD Work Phone: 1(311)[facility]04-11-2024 11:06-0400Body mass index (BMI) [Ratio]30.13 kg/d4OqwmdfsHeidy Marin MD Work Phone: 1(552)[facility]04-11-2024 11:06-0400Body suzuxz26.25 kgHeidy Marin MD Work Phone: 1([phone])733[facility]04-11-2024 11:06-0400Diastolic blood caargpue99 mm[Hg]Heidy Marin MD Work Phone: 1(964)[facility]04-11-2024 11:06-0400Systolic blood grvveqok526 mm[Hg]Heidy Marin MD Work Phone: [phone]04-05-2024 08:59-0400Body ydcmpj771.34 cmNor[facility]04-05-2024 08:59-0400Body mass index (BMI) [Ratio]27.8 kg/w2FpdmfvwrhNorwalk Memorial Hospital04-05-2024 08:59-0400Body etixjj15.71 kg[facility]04-05-2024 08:59-0400Diastolic blood thuuutru34 mm[Hg][facility] 01-22-2024 08:59-0400Heart rate62 /[facility] 01-22-2024 08:59-0400Systolic blood abbiiayo829 mm[Hg][facility]01-29-2024 13:17-0500Diastolic blood efqiyqek73 mm[Hg]Raoms SPEARS Work Phone: [facility]01-29-2024 13:17-0500Heart rate 58 /minRamos Cervantes APRN-STOCK AND STATION AGENT Work Phone: [facility] [id number] 13:17-0500Systolic blood olvbuqrv044 mm[Hg]Ramos Cervantes APRN-STOCK AND STATION AGENT Work Phone: [facility]ArcoBaleno Gccanw90-22-8946 14:30-0500Body tgheps541.34 cmBrett Kuns Other [facility]01-23-2024 14:30-0500 Diastolic blood wmzzpqyk24 mm[Hg]Ellen Kuns Other [facility]01-23-2024 14:30-0500 Respiratory rate16 /minBrett Kuns Other [employer] Other [id number] 14:30-0998UbA3% (BldA) [Mass fraction]94 % Ellen Kuns Other [employer] Other [id number] 14:30-0500Systolic blood dxysacub515 mm[Hg] Ellen Kuns Other [facility]11-15-2023 13:45-0500 Body frungd203.34 cmBrett Kuns Other [employer] Other 11-15-2023 13:45-0500Diastolic blood mm[Hg] Ellen Kuns Other [employer] Other 11-15-2023 13:45-0500Respiratory rate18 /minBrett Kuns Other [employer] Other 11-15-2023 13:45-5953KaF8% (BldA) [Mass fraction]97 % Ellen Kuns Other [employer] Other 11-15-2023 13:45-0500Systolic blood gjkxdacg87 mm[Hg] Ellen Michis Other [employer] Other 08-01-2023 15:15-0400Body jicpkv932.34 cmBreshayna Bordens Other [employer] Other 08-01-2023 15:15-0400Diastolic blood lpcmpexg18 mm[Hg] Ellen Michis Other [employer] Other 08-01-2023 15:15-0400Respiratory rate18 /minBreshayna Bordens Other [employer] Other 08-01-2023 15:15-0992NlG2% (BldA) [Mass fraction]98 % Ellenshayna Bordens Other [employer] Other 08-01-2023 15:15-0400Systolic blood gkwdcsno52 mm[Hg] Ellen Michis Other [employer] Other 06-02-2023 09:06-0400Blood Pressure LocationPatrick [employer] [facility]06-02-2023 09:06-0400Diastolic blood ozmjusyr86 mm[Hg]Fidel IBARRA [facility]06-02-2023 09:06-0400Heart rate70 /minPaKeystone Mobile Partner [facility]06-02-2023 09:06-0400Respiratory rate16 /minPaKeystone Mobile Partner [facility]06-02-2023 09:06-0400Systolic blood otrzfkxy138 mm[Hg]Fidel IBARRA [facility]05-05-2023 09:33-0400Blood Pressure LocationPatrick IBARRA [facility]05-05-2023 09:33-0400Diastolic blood hojlmwnt61 mm[Hg]Fidel IBARRA [facility]05-05-2023 09:33-0400Heart rate68 /minPaKeystone Mobile Partner [facility]05-05-2023 09:33-0400Respiratory rate16 /minPaKeystone Mobile Partner [facility]05-05-2023 09:33-0400Systolic blood axhnwmkh059 mm[Hg]Fidel IBARRA [facility]04-14-2023 11:54-0400Blood Pressure LocationPaKeystone Mobile Partner [facility]04-14-2023 11:54-0400Diastolic blood jfmfnway34 mm[Hg]Fidel IBARRA [facility]04-14-2023 11:54-0400Heart rate68 /minPaKeystone Mobile Partner [facility]04-14-2023 11:54-0400Respiratory rate16 /minPaKeystone Mobile Partner [facility] [place] [address]-14-2023 11:54-0400Systolic blood ohxkcbhz14 mm[Hg]Fidel IBARRA [facility]01-24-2023 15:00-0500Body gfpvao561.34 cmBrett Michis Other [employer] Other [id number] 15:00-0500Body mass index (BMI) [Ratio] 28.59 kg/x6Xhyqx Mic[employer] Other [employer] Other 01-24-2023 15:00-0500Body afmxorrjopf16.6 [degF]Ellen Michis Other [employer] Other [id number] 15:00-0500Body yntmtl72.99 kgBrett Kuns Other [employer] Other 01-24-2023 15:00-0500Diastolic blood lkqyinpv27 mm[Hg] Ellen Michis Other [employer] Other 01-24-2023 15:00-0500Respiratory rate18 /minBreshayna Crabtree Other [employer] Other 01-24-2023 15:00-1768NiQ9% (BldA) [Mass fraction]99 % Ellen Kuns Other [employer] Other 01-24-2023 15:00-0500Systolic blood vaxzzass79 mm[Hg] Ellen Kuns Other [employer] Other 11-15-2022 14:45-0500Body pznrda942.34 cmBrett Kuns Other [employer] Other 11-15-2022 14:45-0500Body mass index (BMI) [Ratio] 27.19 kg/a7Krxcg [employer] Other [employer] Other 11-15-2022 14:45-0500Body .45 kgEllen Leyda Other [employer] Other 11-15-2022 14:45-0500Diastolic blood gigxknad34 mm[Hg] Ellen Crabtree Other [employer] Other 11-15-2022 14:45-0500Respiratory rate18 /minEllen Michidavion Other [employer] Other 11-15-2022 14:45-6062AwX6% (BldA) [Mass fraction]92 % Ellen Michidavion Other [employer] Other 11-15-2022 14:45-0500Systolic blood bgsyhwno73 mm[Hg] Ellen Michidavion Other [employer] Other 05-03-2022 09:29-0400Diastolic blood xwfasnev40 mm[Hg] Frank Reddy MD Work Phone: [facility]burgCITIC Information DevelopmentHeytbn43-92-7159 09:29-0400Systolic blood kulpbmwn740 mm[Hg]Frank Reddy MD Work Phone: [facility]burgCIT[facility] Information DevelopmentOqiiqr42-88-0100 08:30-0400Body .9 [degF]Frank Reddy MD Work Phone: [facility]burgCITIC Information DevelopmentNrknwp00-45-6292 08:30-0400Heart rate75 /min Frank Reddy MD Work Phone: [facility] SystemKoazmu59-50-8740 08:30-0400Respiratory rate18 /minSeljulee Reddy MD Work Phone: [facility] SystemJprrku44-35-7868 08:30-2023CfZ2% (BldA) [Mass fraction]97 %Frank Reddy MD Work Phone: [facility] SystemHjqfxk38-87-7081 05:15-0400Body mass index (BMI) [Ratio]34.44 kg/e2NsdauwFrank Reddy MD Work Phone: [facility] SystemGrndfq03-19-0740 05:15-0400Body yzzsjq593.86 kg Frank Reddy MD Work Phone: [facility] SystemIgzqir89-12-7500 09:09-0400Body nytiwr550.8 cm Frank Reddy MD Work Phone: [facility] SystemAaazlb66-44-1015 10:15-0400Body weqskg307.34 cm Ellen Crabtree Other [employer] Other 04-11-2022 10:15-0400Body mass index (BMI) [Ratio] 29.15 kg/z6UuetyEllen Crabtree Other [employer] Other 04-11-2022 10:15-0400Body xngnab29.8 kgEllen Crabtree Other [employer] Other 04-11-2022 10:15-0400Diastolic blood xsdukskj91 mm[Hg] Ellen Crabtree Other [employer] Other 04-11-2022 10:15-0400Respiratory rate18 /minEllen Crabtree Other [employer] Other 04-11-2022 10:15-0501VwQ6% (BldA) [Mass fraction]98 % Ellen Michis Other [employer] Other 04-11-2022 10:15-0400Systolic blood cqvjcsis30 mm[Hg] Ellen Kuns Other [employer] Other 02-17-2022 15:00-0500Body gznocf720.34 cmBrett Michis Other [employer] Other 02-17-2022 15:00-0500Body mass index (BMI) [Ratio] 29.43 kg/g1Xksog Michis Other [employer] Other 02-17-2022 15:00-0500Body .71 kgBrett Michis Other [employer] Other 02-17-2022 15:00-0500Diastolic blood lmfhngvo07 mm[Hg] Ellen Kuns Other [employer] Other 02-17-2022 15:00-0500Respiratory rate18 /minBrett Kuns Other [employer] Other 02-17-2022 15:00-9575WoB1% (BldA) [Mass fraction]99 % Ellen Kuns Other [employer] Other 02-17-2022 15:00-0500Systolic blood gecezlfi494 mm[Hg] Ellen Kuns Other [employer] Other 02-15-2022 16:32-0500Body aqyamw388.8 [employer] 02-15-2022 16:32-0500Body mass index (BMI) [Ratio]30.42 kg/m7AfebajgPayParrot 02-15-2022 16:32-0500Body surface area Derived from formula2.18 g3TzblvvhPay[employer] 02-15-2022 16:32-0500Body twmazf96.16 kgVitriflexncCustomized [employer] 02-15-2022 16:32-0500Diastolic blood wkfuwhjr00 mm[Hg] [employer] 02-15-2022 16:32-0500Heart rate80 /minVitriflexncCustomized [employer]ending Solutions [id number] 16:32-0500Systolic blood untrgkwt041 mm[Hg] [employer] [id number] 14:44-0500Body .8 [facility] HospitalConelumncCustom[facility] [employer] 02-01-2022 14:44-0500Body mass index (BMI) [Ratio]31.18 kg/g3OhkpefbPayParrot [id number] 14:44-0500Body surface area Derived from formula2.21 m9FdksmcpPay[employer] 02-01-2022 14:44-0500Body ohscii57.57 kgVoxxter 02-01-2022 14:44-0500Diastolic blood zrbpvloz09 mm[Hg] [employer] 02-01-2022 14:44-0500Heart rate64 /minCarmela Noris Bryan [employer] 02-01-2022 14:44-0500Systolic blood wiructrv414 mm[Hg] Lashon Mcmullen [employer] 11-18-2021 12:00-897409 1Brett Eunice Crabtree Work Phone: 1(909) [phone]-[facility]bjS[facility] [address] [place] Work Phone: Comment on above:[id number] 11:30-0500Body xujlsg618.34 cmBreshayna Crabtree Other [employer] Other 11-09-2021 11:30-0500Body mass index (BMI) [Ratio] 31.24 kg/t0QzgwtEllen Crabtree Other [employer] Other 11-09-2021 11:30-0500Body kqfyys784.61 kgEllen Crabtree Other [employer] Other 11-09-2021 11:30-0500Diastolic blood ihrffqxw18 mm[Hg] Ellen Crabtree Other [employer] Other 11-09-2021 11:30-0500Respiratory rate18 /minEllen Crabtree Other [employer] Other 11-09-2021 11:30-3924EyM6% (BldA) [Mass fraction]98 % Ellen Crabtree Other [employer] Other 11-09-2021 11:30-0500Systolic blood cyiwiyib88 mm[Hg] Ellen Crabtree Other [employer] Other 10-29-2021 14:23-0400Diastolic blood glakurtk97 mm[Hg] Ellen R Kuns Work Phone: [phone]-PqbjmSt. [facility] 250 DO Work Phone: 1(133) 187-548710-29-2021 14:23-0400Systolic blood tvpzeagq03 mm[Hg] Ellen R Kuns Work Phone: mp245-7127IL-Bifsk [facility] 250 DO Work Phone: 1(924) 622-495510-29-2021 14:21-0400Body .8 cmBrett R Michis Work Phone: mp870-2224ZV-IumofSt. Mary'S Hospital-[facility] 250 DO Work Phone: 1(888) [phone] 14:21-0400Body mass index (BMI) [Ratio] 32.14 kg/e5Nlqnr R Michis Work Phone: [phone]-GthtjMayo Clinic [facility] 250 DO Work Phone: 1(624) 193-673110-29-2021 14:21-0400Body surface area Derived from formula2.19 i0Unqab R Kuns Work Phone: mp268-2565LZ-FuucgSt. Mary'S Hospital-[facility] 250 DO Work Phone: 1(299) 545-826810-29-2021 14:21-0400Body nupuzv829.61 kgBrett R Kuns Work Phone: mp729-6345OD-GtuwaSt. Mary'S Hospital-[facility] 250 DO Work Phone: 1([phone]) 900-499610-29-2021 14:21-0400Diastolic blood bypmejtu27 mm[Hg] Ellen R Kuns Work Phone: [phone]-Wgdyk [facility] 250 DO Work Phone: 1(562) 564-719910-29-2021 14:21-0400Heart rate72 /minBrett R Kuns Work Phone: mp958-9578UG-Tlonu [facility] 250 DO Work Phone: 1(186) 341-838610-29-2021 14:21-0400Systolic blood zaaroftt70 mm[Hg] Ellen Eunice Leyda Work Phone: [phone]-Qnhzi [facility] 250 DO Work Phone: Encounters Encounter DateEncounter TypeCare ProviderFacilityStart: 98-58-4472mlqaiwihjb Lauren TannaFacility:EU BellevueStart: 90-63-3280qrhfmkcsobVabvu Kuns 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 Centertart: 75-11-1537SoyorysFidel Ibarra MD-[facility] Work Phone: Start: 06-51-5506ljpsuludhoXPUX [facility] Centertart: 37-29-3850Fgos Veverka DOCUMENTATION CLERK-[facility] Family [facility] Work Phone: Start: 07-13-2025 End: 83-29-2826UxemshMhubbasp W Elmer MD Work Phone: [facility]icians NeurologyComment on above:Spinal stenosis of lumbar region with neurogenic claudicationStart: 07-12-2025 End: 41-08-7415zobhlyhohsWxnbyc TannaFacility:QUINTON AcostaueStart: 07-12-2025 End: 81-34-6779Khhgcwo encounter procedureLauren Maru [facility] Lori start: 05-29-7181Fdb-patient / Non-visitSteven Gonzales MD -[facility] Work Phone: Start: 65-05-4394Ooafiw Riley MD-[facility] Work Phone: Start: 49-77-2627zztwnkufucRUKNPT HSUUniversThe MetroHealth Systemtart: 07-06-2025 End: 90-36-2295kehertlaxuQXYEZC HSUUniFairfield Medical Centertart: 40-81-1529Kri-patient / Non-visitChristian Andres Currie MD-[facility] Work Phone: Start: 02-15-3010Pfhpgupkiradha Currie MD-[facility] Work Phone: Start: 34-68-2432Oes-patient / Non-visitChristian Andres Currie MD-[facility] Work Phone: Start: 16-33-7573Mynrjgtvzradha Currie MD-[facility] Work Phone: Start: 06-28-2025 End: 78-29-5596Uyahviveni and management of inpatientBrett Kuns Facility:[facility] Centertart: 89-99-7119Yvewjdsxna and management of inpatientJUSTIN HSUUniversThe MetroHealth Systemtart: 14-33-6862Nxoivzjddg and management of inpatientJUSTIN HSUUniFairfield Medical Centertart: 85-78-5019Xngqggeqsd and management of inpatientJUSTIN [facility] Centertart: 95-92-2562Nsgqtzcxdq and management of inpatientFADI SAFIDayton Osteopathic Hospitaltart: 06-20-2025 Evaluation and management of inpatientMUNIER NAZZALUniversity [facility] Mainlandtart: 72-47-8337Rpyuiwetnv and management of inpatientBENJAMIN CLARK [facility] Hospitaltart: 65-38-4556Hlfzajuipc and management of inpatientFADI [facility] Centertart: 06-15-2025 Evaluation and management of inpatientREYGHAN ROSENDALEDayton Osteopathic Hospitaltart: 01-97-6031Ywiicrlxgj and management of inpatientFADI [facility] Hospitaltart: 06-15-2025 End: 11-55-6461Zlezhxscqc and management of inpatientJUSTIN HSUUniversThe MetroHealth Systemtart: 88-49-4641Hyx-patient / Non-visitMelirene Enrique [facility] Work Phone: Start: 15-78-9375VaualtyAbdoulaye Enrique [facility] Work Phone: Start: 06-14-2025 End: 37-64-8963cislwfblnhHdqgwb TannaFacility:EU BellevueStart: 06-13-2025 End: 31-28-6606Emyzsli encounter procedureMichelle Mahoney [facility] start: 06-12-2025 End: 03-94-7040wufkofahbrJRDM SNShelby Memorial Hospitaltart: 06-06-2025 End: 78-93-5861Viwppqarj encounterEliane CamposMedica Neurology, A Department of [facility] HospitalComment on above:New PatientStart: 59-44-9924nmcaykzposOXZI [facility] Centertart: 06-05-2025 End: 67-70-6120aginrkhduxVRTOWhite Hospitaltart: 21-95-7618Mva-patient / Non-visitEllen Crabtree DOLocated Within [facility] Work Phone: Start: 78-24-1677Yzkhq R Kuns DO-[facility] Work Phone: Start: 05-15-2025 End: 85-97-4862tyvuslqvizWC-C JENNIFER E PERRYFacility:EU BellevueStart: 05-15-2025 End: 06-53-8714Qfnloib encounter procedureJENNIFER E RODRI [facility] start: 04-26-2025 End: 48-84-4243Ccyocb Bety Banks MD Work Phone: [facility] - NeurophysiologyComment on above:Chronic intractable headache, unspecified headache type (Primary Dx) Start: 04-25-2025 End: 54-87-2304lbwmzvuxqbMSQXCherrington Hospitaltart: 04-24-2025 End: 54-32-3814lvdtvtlilaDD- LYN Crum PERRYFacility:EU evueStart: 04-24-2025 End: 56-60-0036Oxtlkov encounter procedureALLANNNIFER Skyla RODRI [facility] start: 04-19-2025 End: 74-49-3113Hgsjpt Bety Banks MD Work Phone: [facility] - NeurophysiologyComment on above:Parkinson's disease without dyskinesia or fluctuating manifestations (CMS-HCC) (Primary Dx); Dysphagia, unspecified typeStart: 04-11-2025 End: 37-00-4899Weiooryvl Result EncounterMohamed Yves Marin MD Work Phone: NOMS External Department UnsolicitedStart: 04-11-2025 End: 99-08-3827Aopdzwjvn Result EncounterMohamed Yves Marin MD Work Phone: NOED External Department UnsolicitedStart: 04-05-2025 End: 26-70-0022fgdvuyrrcePOSXJJC [facility] Start: 04-04-2025 End: 70-41-8651GotypjXldfsrgi W Elmer MD Work Phone: [facility] Physicians NeurologyComment on above:Spinal stenosis of lumbar region with neurogenic claudicationStart: 03-31-2025 End: 75-46-6131Fmubqr Bety Banks MD Work Phone: [facility] A Department of [facility] HospitalComment on above:Dysautonomia orthostatic hypotension syndrome (Primary Dx)Start: 03-31-2025 End: 85-15-7326Tdqwcbu encounter procedureLYN MACE [facility] start: 03-29-2025 End: 81-71-3273twodrkyspmBCSUQOFX L AMSDELUT Health [facility] HospitalStart: 03-16-2025 End: 04-51-5011Pmrwtr outpatient visit 15 Ruthie Marin MD Work Phone: [facility] Vascular SurgeryComment on above:Encounter for abdominal aortic aneurysm (AAA) screening (Primary Dx); Open wound of left great toe, subsequent encounter; Critical limb ischemia of left lower extremity with gangrene ([facility])Start: 03-16-2025 End: 75-82-9229llgqitybymKBQKKOT F OSMANTrinity Health System [facility] Campus Ambulatory PPGStart: 03-14-2025 End: 51-73-4793tlqmszgerlXKOUICCO L JE[facility] NORTHEASTSONDRAElyria Memorial Hospital HospitalStart: 03-14-2025 End: 93-79-4921Kgcpxp outpatient visit 40 Melba Banks MD Work Phone: [facility], A Department of [facility] HospitalComment on above:Dysphagia, unspecified type (Primary Dx); Globus sensation; Dysautonomia orthostatic hypotension syndrome; Constipation, unspecified constipation type; Cerebellar dysmetriaStart: 03-10-2025 End: 14-11-2450srkulpwbevLT-C LYN Crum PERRYFacility:EU BellevueStart: 02-28-2025 End: 91-01-7070Egtlztbjv Result EncounterMohamed Yves Marin MD Work Phone: NOBQ External Department UnsolicitedStart: 02-28-2025 End: 12-54-3182Qwtktjiyd Result EncounterMohamed Yves Marin MD Work Phone: NORE External Department UnsolicitedStart: 02-24-2025 ambulatoryPA-Rolly Crum PERRYFacility:EU BellevueStart: 02-17-2025 End: 46-67-8931zygvnwqparOD-C LYN Crum PERRYFacility:EU evueStart: 02-15-2025 End: 09-03-7511hgldktarkwCpvxb Kuns DO Work Phone: [facility] Work Phone: Start: 02-15-2025 End: 93-99-0131Vvbdifc encounter procedureBrett Kuns DO Work Phone: [facility]-CT Scan Main [place] Work Phone: Start: 01-30-2025 End: 97-73-7225Ookdcau encounter procedureBrett Kuns DO Work Phone: [facility] Physician GroupAdventhealth [facility] Infect [facility] Work Phone: Start: 01-26-2025 End: 58-86-7778xnolofstgyVE-Rolly Crum PERRYFacility:EU BellevueStart: 12-29-2024 End: 04-26-1531yjuixyhdwgTfcin Kuns DO Work Phone: [facility] Work Phone: Start: 12-29-2024 End: 71-94-1987Ntjhxrs encounter procedureBrett Kuns DO Work Phone: [facility] Physician GroupF F Thompson Hospital Work Phone: Start: 12-27-2024 End: 13-01-5690rnyictbsjtOWLROYUZ E PERRYFacility:EU BoissevainevueStart: 12-13-2024 Non-patient / Non-visitBrett Kuns DO Work Phone: [facility] Physician Group-[facility] Work Phone: Start: 12-13-2024 End: 17-40-5061vfsimrohclMvsfp Kuns DO Work Phone: [facility] Work Phone: Start: 12-13-2024 End: 43-80-6284Sybkdaji ReferredBrett Kuns DO Work Phone: [facility]-LAB Path Spec [place] HospStart: 87-06-9009Mtd-patient / Non-visitBrett Kuns DO Work Phone: [facility] Physician GroupLocated Within [facility] Work Phone: Start: 11-28-2024 End: 84-42-1906omqgrasuooVDXCXEWP E PERRYFacility:FTMCStart: 11-28-2024 End: 98-20-1075Ixm Drop offJENNIFER E RODRI [facility] Start: 11-28-2024 End: 32-22-9044kvqwbvggeeXXDCZFBE E PERRYFacility:EU BoissevainevueStart: 11-28-2024 End: 88-58-5686Fjcalkn encounter procedureJENNIFER E RODRI [facility] start: 11-28-2024 End: 43-10-0155Xxbnoln encounter procedureBrett Kuns DO Work Phone: [facility]-Lab [place] Work Phone: Start: 11-28-2024 End: 37-64-1087cnqvrjrbkbLhkpa Kuns DO Work Phone: [facility] Work Phone: Start: 58-78-2538tccffjbsrbBUAGHLMH E PERRYFacility:EU BellevueStart: 11-23-2024 End: 71-29-3925KrfnmyFkrudaxd W Elmer MD Work Phone: [facility] NeurologyComment on above: Parkinson's disease ([facility])Start: 11-23-2024 End: 38-38-4095LqkuiuEmhsgsub W Elmer MD Work Phone: [facility] NeurologyComment on above: Parkinson's disease ([facility])Start: 11-19-2024 End: 44-78-8799SharqaCcuuhxrc W Elmer MD Work Phone: [facility] NeurologyComment on above: Parkinson's disease ([facility])Start: 10-28-2024 End: 53-96-6027vmzdpfjhsxIW-C LYN Crum PERRYFacility:EU BellevueStart: 10-28-2024 End: 81-93-8867Etlsbsn encounter procedureJENNIFER E RODRI [facility] start: 10-24-2024 End: 66-12-6398EvvqevOlvhusvp W Elmer MD Work Phone: [facility] NeurologyComment on above: OrthostasisStart: 09-27-2024 End: 66-53-0654Geeyxzxia department patient visitBreshayna Crabtree DO Work Phone: [facility]-Emergency Room Work Phone: Start: 09-27-2024 End: 23-53-5234ezqerzutcyJE-C LYN Crum PERRYFacility:FTMCStart: 09-27-2024 End: 82-84-0833Bsb Drop offJENNIFER E RODRI [facility] Start: 09-27-2024 End: 45-00-8002cabsqizzflVH-C LYN MACEFacility:EU BellevueStart: 09-27-2024 End: 35-65-1105Jzlhhtb encounter procedureJENNIFER E RODRI [facility] start: 09-26-2024 End: 35-04-6030JixtevLtsjNicanor SPEARS Work Phone: [facility] NeurologyComment on above: OrthostasisStart: 09-25-2024 End: 83-89-7113YyvkdjYhfs N Pham MD Work Phone: [facility] NeurologyComment on above: Migraine without aura and without status migrainosus, not intractableSpinal stenosis of lumbar region with neurogenic claudicationStart: 08-30-2024 End: 55-54-0478fbxcscpuynHZClifC LYN Crum PERCHRISTIFacility:EU evueStart: 08-30-2024 End: 40-26-7854Bdoipau encounter procedureJENNIFER E RODRI [facility] start: 08-29-2024 End: 18-51-5374BuuwpgQzrhawdw W Elmer MD Work Phone: [facility] NeurologyComment on above: Parkinson's disease (CMS-HCC)Start: 08-23-2024 End: 82-64-4099Amnmni outpatient visit 40 minutesSamira Bowden MD Work Phone: [facility] NeurologyComment on above: Neurogenic orthostatic hypotension (CMS-HCC) (Primary Dx); Spinal stenosis of lumbar region with neurogenic claudication; Parkinson's disease without dyskinesia or fluctuating manifestations (CMS-HCC) Start: 08-23-2024 End: 14-93-4666uktuxmusypTYEVVKIY W [facility] Ambulatory PPGStart: 08-09-2024 End: 38-04-9098zxlnwcihxyTtyhsi X OrzechFacility:EU evueStart: 08-09-2024 End: 82-44-5739Pkmehad encounter procedureAurora X Orzech [facility] start: 07-31-2024 End: 66-75-8068XisehtScjlKaylene Cervantes APRN-[employer]OCK [employer]ATION AGENT Work Phone: [facility] NeurologyComment on above:Spinal stenosis of lumbar region with neurogenic claudicationStart: 07-19-2024 End: 32-42-4953ufomudgzmbJS-C LYN MACEFacility:EU tart: 07-19-2024 End: 17-59-7686Eieqzdi encounter procedureLYN MACE [facility] start: 07-14-2024 End: 61-48-3558DdqjzqUdgtKaylene Cervantes APRN-[employer]ATION AGENT Work Phone: [facility] NeurologyComment on above: 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 ([facility])Start: 06-30-2024 End: 28-91-1483jiperjkofsTitoti J GaleaFacility:EU ueStart: 06-30-2024 End: 60-79-7266Wrabghv encounter procedureAlysha J Galea [facility] start: 06-21-2024 End: 07-00-3931crxwxypkzvQptgufnbpTrumbull Regional Medical Center Work Phone: Start: 06-21-2024 End: 10-46-7694Ofsmvxi encounter procedureNovant [facility] Physician GroupF F Thompson Hospital Work Phone: Start: 06-14-2024 End: 53-75-4626cutdjgymsxVmuomox R WATERSFacility:FTMCStart: 06-14-2024 End: 69-39-3527Jow Drop offFidel IBARRA [facility] Start: 06-14-2024 End: 20-26-3325dobipsbdxgSjjaupl R WATERSFacility:EU BellevueStart: 06-14-2024 End: 30-14-4770Dofomgt encounter procedurePacarlyle IBARRA [facility] start: 06-09-2024 End: 96-63-5707jusdnhrrynLFEDTKFK E PERRYFacility:EU BellevueStart: 06-09-2024 End: 82-94-9296Stjqssl encounter procedureJENNIFER E RODRI [facility] start: 38-84-6302Fkl-patient / Non-visitFirelands Physician [facility] Work Phone: Start: 05-24-2024 End: 81-91-7960ZzeucvYppm N Pham MD Work Phone: [facility] NeurologyComment on above: Migraine without aura and without status migrainosus, not intractableStart: 05-16-2024 End: 85-64-6975fikpuzktvoIpjfdsk R WATERSFacility:CD:[id number]: 04-27-2024 Non-patient / Non-visitFirelands Physician GroupLocated Within [facility] Work Phone: Start: 50-41-3996Vti-patient / Non-visitFirelands Physician GroupLocated Within [facility] Work Phone: Start: 04-26-2024 End: 79-54-9222nnznkrmzwsHwcdpti Sabrina BRIZUELAFacility:CD:[id number]: 04-25-2024 Non-patient / Non-visitNov[facility] Health [facility] Physician GroupLocated Within [facility] Work Phone: Start: 04-24-2024 End: 34-38-6731Hbm-patient / Non-visitNovant Health [facility] Work Phone: Start: 31-15-2331Pep-patient / Non-visitFirburbanks Physician Group-[facility] Work Phone: Start: 57-07-3035Vpd-patient / Non-visitNov[facility] Health [facility] Physician [facility] Professional Co Work Phone: Start: 04-11-2024 End: 44-96-0476RmtmawYavbNicanor SPEARS Work Phone: [facility] NeurologyComment on above:Spinal stenosis of lumbar region with neurogenic claudicationStart: 04-05-2024 End: 23-18-9299Hyu Drop offAurora X Orzech [facility] Start: 04-05-2024 End: 35-37-2590tzzrufhifwYajapi X OrzechFacility:FTMCStart: 04-05-2024 End: 52-03-5757Lfvsvnh encounter procedureAurora X Orzech [facility] start: 03-28-2024 End: 13-08-1755Mmoerwxyy encounterClairskyla Mixon CMAProMedica Physicians NeurologyStart: 03-17-2024 End: 67-69-6421Toxqhq outpatient visit 15 minutesMoruby Marin MD Work Phone: [facility] Comment on above:Critical limb ischemia of both lower extremities with gangrene ([facility]) (Primary Dx)Start: 03-15-2024 End: 92-24-5532ndunnjgsdnGwnfou X OrzechFacility:EU BellevueStart: 03-15-2024 End: 63-65-9798Yobmgab encounter procedureAurora X Orzech [facility] start: 02-25-2024 End: 38-80-3365Tmoqoqqrq encounterClairskyla Mccoy-Mei CMAProMedica Physicians NeurologyStart: 02-23-2024 End: 14-41-9634opoyqarmfvLvopuvj R WATERSFacility:FTMCStart: 02-23-2024 End: 00-90-9784Hmg Drop offFidel IBARRA [facility] Start: 02-22-2024 End: 93-36-3673bdrakpwodfIoimrfn R WATERSFacility:EU BellevueComment on above: Migraine without aura and without status migrainosus, not intractableStart: 02-22-2024 End: 77-57-5551Ufsbjce encounter procedureFidel IBARRA [facility] start: 02-18-2024 End: 11-96-9700Cjhssnioz encounterClairskyla Mccoy-Counterrodney CMAProMedica Physicians NeurologyStart: 02-15-2024 End: 25-70-0049Wvkmqanil encounterClairskyla Mccoy-Counterman MARTIProMedica Physicians NeurologyStart: 02-13-2024 End: 47-63-1111ZlhzmoCvbv N Pham MD Work Phone: [facility] NeurologyComment on above: Migraine without aura and without status migrainosus, not intractableStart: 08-95-3419Gnl-patient / Non-visitDO Ellen Crabtree Work Phone: [facility] Physician Group-[facility] Gastroenterology Work Phone: Start: 02-11-2024 End: 80-81-3138Pdvxcgmny to same day surgery [facility] Ellen Crabtree Work Phone: [facility] Work Phone: Start: 02-11-2024 End: 94-74-2980irlwbiciqzDM Ellen Crabtree Work Phone: [facility] Work Phone: Start: 02-10-2024 End: 75-18-2359rxfwxaoshmNpsyghfecFisher-[facility] Center Work Phone: Start: 02-10-2024 End: 98-86-8861Wskkqtk encounter procedureNovant Health [facility] Physician Group-[facility] Family Medicine [facility] Work Phone: Start: 02-09-2024 End: 89-74-2975MnrabxAihn N Pham MD Work Phone: [facility] NeurologyComment on above: Migraine without aura and without status migrainosus, not intractableStart: 02-01-2024 End: 68-36-9295iccsxjpsceQwgsxuu R WATERSFacility:EU BellevueStart: 02-01-2024 End: 72-08-2121Hhwfnbr encounter procedureFidel IBARRA [facility] start: 01-28-2024 End: 47-06-7553Atxlrkpkg encounterClairskyla Mixon CMAProMedica Physicians NeurologyStart: 01-28-2024 End: 00-72-7470Wybpfj outpatient visit 25 minutesMoruby Marin MD Work Phone: [facility] Comment on above:Encounter for screening for abdominal aortic aneurysm (AAA) in patient 50 years of age or older with history of smoking (Primary Dx); Critical limb ischemia of both lower extremities with gangrene (CMS-HCC); Abdominal aortic aneurysm dissection ([facility])Start: 01-22-2024 End: 42-12-3292pexyksqbrdIkriepjqlFisher-[facility] Work Phone: Start: 01-22-2024 End: 66-20-8063Dpxwgtn encounter procedureSheila Physician Group-[facility] Gastroenterology Work Phone: Start: 12-61-2206Tawegrluj encounterClairskyla Hurley CMAProMedica Physicians NeurologyStart: 01-11-2024 End: 24-68-6304mbkbyhkelxTnuuexd R WATERSFacility:EU evueStart: 01-11-2024 End: 83-95-6322Unesgec encounter John IBARRA [facility] start: 06-47-4397Zhgghavdu encounterClrafita Hurley CMAProMedica Physicians NeurologyStart: 31-61-4901Zdx-patient / Non-visitFirsthealthbriana Physician Group-[facility] Neuromedical Work Phone: Start: 12-14-2023 End: 99-88-3648dllmbqtuikPcgyras R WATERSFacility:EU BellevueStart: 12-11-2023 RefillSandra AndersonProMedica Physicians NeurologyComment on above:Orthostasis Start: 31-82-8873Rsmxcfzcn encounterEllen Rosas Family Medicine CastaliaStart: 11-17-2023 End: 67-11-3891gddiqpfayjEnegrmyJorgito Carter [employer] Other Start: 11-17-2023 End: 50-20-2637Whvafus encounter John IBARRA [facility] start: 11-16-2023 End: 69-85-6879Bsabyd outpatient visit 40 minutesRamos SPEARS Work Phone: [facility] NeurologyComment on above: Parkinson's disease without dyskinesia or fluctuating manifestations (Primary Dx); Spinal stenosis of lumbar region with neurogenic claudication; AnxietyStart: 77-31-4203NayuxsBojneisd W Elmer MD Work Phone: [facility] NeurologyComment on above: Parkinson's diseaseStart: 11-10-2023 End: 99-91-5668zdckpffyqjMjwnt Kuns Other [place] [employer] Other Start: 52-90-3114Pmuska outpatient visit 25 minutes Ellen Rosas Family Medicine CastaliaStart: 11-10-2023 End: 60-78-2351Wwmqbko encounter procedureFirbriana Physician Group-Start: 11-09-2023 End: 74-22-9670zhkrhjsywbPikucvof W Elmer MD Work Phone: [facility] centrose SystemComment on above:Parkinson's diseaseStart: 56-09-5988Mwhyclnzo encounterBrett Ralph Family Medicine CastaliaStart: 10-21-2023 End: 12-46-8067Jnc Drop Amanda IBARRA [facility] Start: 10-21-2023 End: 21-38-3090fqfqlfkmlqZtxufhl R WATERSFacility:FTMCStart: 10-05-2023 End: 42-09-4332nxysjomwjgHrwbw Kuns Other [employer] Other Start: 95-22-7789Rrocvrepe encounterBrett aRlph Family Medicine CastaliaStart: 09-22-2023 End: 15-95-9496bqptutmmniDvivi Kuns Other [employer] Other Start: 87-32-5349Wilqwxiel encounterBrett Ralph Family Medicine CastaliaStart: 09-16-2023 End: 65-77-2400rekvtqcmcjRgyoc Kuns Other [employer] Other Start: 77-16-6869Vhihhxjga encounterBrett Ralph Family Medicine CastaliaStart: 46-01-1453Xhcfmhrtx encounterBrett [facility]rian[facility] CastaliaStart: 09-15-2023 End: 19-08-8615sukjqrphdcQfqlmpd R W[place]ERSMin[place] Dyn Other Start: 09-15-2023 End: 38-01-2822Xoediph encounter procedureFidel IBARRA [facility] start: 09-02-2023 End: 63-74-4559lpsctiwfhjYtjdy Kuns Other nocox [place] [employer] Other Start: 56-72-6068Frgeij outpatient visit 25 minutes [facility] CastaliaStart: 08-25-2023 End: 54-42-6002xvdiktpbghKzodb Kuns Other nocox [employer] Other Start: 07-27-0487Okgincovj encounterBrett LeydaAdrianne Family [facility] CastaliaStart: 08-14-2023 End: 17-57-8432wbupavumzrMiayoio R WATERSFacility:EU BellevueStart: 08-14-2023 End: 13-75-6741Bkcquig encounter procedureFidel IBARRA [facility] start: 07-17-2023 End: 86-77-9339kaitbsmypgBmsqrif R WATERSFacility:FTMCStart: 07-17-2023 End: 28-87-6440Ioc Drop offFidel IBARRA [facility] Start: 07-17-2023 End: 29-88-5879ozdxcztpmxLsnrzlt R WALTERFacility:EU BellevueStart: 07-17-2023 End: 46-84-2851Rdkozrl encounter procedurePatrick R IBARRA [facility] start: 07-03-2023 End: 62-71-9385aljsjzglryVvilh Kuns Other nocox [place] [employer] Other Start: 03-40-0640Odxoyvaxw encounterBrett LeydaAdrianne [facility] CastaliaStart: 07-01-2023 End: 11-34-8209vwpefjrqtxQwjgryv R WATERSFacility:FTMCStart: 06-19-2023 End: 98-30-6890ghtjldvywfCcraruw R WATERSFacility:FTMCStart: 06-19-2023 End: 58-92-6771Ejo Drop offPatrick Eunice IBARRA [facility] Start: 06-19-2023 End: 98-17-9503huleqcxekrJjsmqoh R WATERSFacility:EU evueStart: 06-19-2023 End: 46-17-1972Cqvckaz encounter procedurePatrick Eunice IBARRA [facility] start: 06-16-2023 End: 58-96-8190ndrruuqthhEttua Kuns Other nocox [employer] Other Start: 36-43-6963Nxybeszvs encounterBrett Ralph [facility] CastaliaStart: 06-11-2023 End: 22-75-1091ccciapmowrNvflr Kuns Other [place] Dyn Other Start: 16-71-2816Ugqrkxydf encounterBrett UrbanoG Family Medicine CastaliaStart: 05-26-2023 End: 29-33-9904fjlpnbbbfjRokja Kuns Other nocox [place] [employer] Other Start: 35-03-7835Qdvuaxsfv encounterBrett UrbanoG [facility] CastaliaStart: 05-25-2023 End: 46-41-2203Jcn Drop offPatricjudy Dawson [employer] [facility] Start: 05-25-2023 End: 54-63-4285msnsrzghdwFcyuadq R WATERSFacility:FTMCStart: 05-25-2023 End: 76-45-2635Jzyjqlm encounter procedurePatrick Eunice IBARRA [facility] start: 05-19-2023 End: 00-05-3484mudthawcpiIulzd Kuns Other nocox [employer] Other Start: 93-91-6178Eamfdc outpatient visit 25 minutes Ellenshayna Rosas [facility] CastaliaStart: 56-55-4303Ctvkvsvtt encounterBrett UrbanoG [facility] CastaliaStart: 04-27-2023 End: 76-75-1107iwnwnriuahKoezrdh R [place]TERMin[place] Dyn Other Start: 04-27-2023 End: 40-81-2303Dhccsun encounter procedurePatrick R [employer] [facility] start: 04-16-2023 End: 00-51-8036unigvlhmtgSigup Kuns Other [employer]Trustifi Other Start: 72-13-7125Hncakehwb encounterBrett UrbanoG [facility] [place]aliaStart: 03-20-2023 End: 16-54-7014Khxbqcv encounter procedurePatrick R [employer] [facility] start: 03-20-2023 End: 89-58-6419Rrzaaxs encounter procedurePatrick R [employer] [facility] Vir[employer] start: 03-19-2023 End: 84-07-0457brmgfvuazdDkfyp Kuns Other [employer]Trustifi Other Start: 48-76-6644Whcqnsffh encounterBrett UrbanoG [facility] CastaliaStart: 02-20-2023 End: 59-97-1345Griqosd encounter procedurePatrick R [employer] [facility] Vir[place]iti start: 02-17-2023 End: 36-49-9796rdkocinztkVblyj Kuns Other noAqueSys Dyn Other Start: 81-92-9138Plomzstlk encounterBrett Ralph [facility] CastaliaStart: 02-16-2023 End: 56-66-1100uopsyqyuugAyfwe Kuns Other noTrustifi Other Start: 37-48-1158Ubxraikmu encounterBrett UrbanoG [facility] CastaliaStart: 02-11-2023 End: 06-45-9323encozshoigFzklt Kuns Other noTrustifi Other Start: 82-90-2432Ukpxuooca encounterBrett NevigoReston Hospital CenterG [facility] CastaliaStart: 01-30-2023 End: 16-77-1567Vttsgcd encounter procedurePacarlyle Eunice IBARRA [facility] start: 88-26-1419Ohjkvzbzr for preprocedural cardiovascular examinationDR FIDEL IBARRA .[facility]Start: 05-19-9894Syrgkoivi for preprocedural laboratory examinationDR FIDEL IBARRA . [facility]: 01-22-2023 End: 62-24-3921qtgozipchcVC FIDEL IBARRA .Facility:A0Slfrw: 01-20-2023 End: 75-20-3579ufjpgimvzeUA FIDEL IBARRA .Facility:O1Yabeb: 01-20-2023 End: 61-60-9668Vrprvezyz for preprocedural cardiovascular examinationDR FIDEL IBARRA .Facility:O8Ddydv: 01-14-2023 End: 85-67-1657awtrfdesvpMdjpk Kuns Other [employer] Other Start: 08-15-6487Iwuqebwqy encounterBrett KunSaint John of God Hospital CastaliaStart: 12-24-2022 End: 53-35-3458Mlenvuug evaluation and management serviceSay Reyes APRN.STOCK AND STATION AGENT Work Phone: UrologyComment on above:NO SHOW (Primary Dx)Start: 12-18-2022 End: 66-62-6913fyfudiknkrYVOIAP RODRIGUEZ .Facility:H6Satac: 12-08-2022 End: 58-38-2350weoylwuwmnRnjgr Kuns Other [employer] Other Start: 33-46-4327Zvrncxywh encounterBrett KunSaint John of God Hospital CastaliaStart: 29-76-4699nrnrxpmovhZtali Porter RNNURSE CARE TRANSITION MGR Comment on above:Medication ProblemStart: 12-01-2022 End: 82-90-0434Evqmpdctyc and management of inpatientNATALISkyla Adrianne LOYA [facility] HospitalStart: 11-20-2022 End: 40-07-0569Uqljvonvop and management of inpatientELLEN MCCOY MICHIDavion Facility:[facility]tart: 11-19-2022 End: 09-33-5299pjzgxqrjdlVggik Kuns Other [employer] Other Start: 91-02-9788Ksjkvcgmt encounterBrett MichisFPG [facility] CastaliaStart: 11-17-2022 End: 42-92-1490dfwovnwbjeJinsh Kuns Other [employer]Trust[employer] Other Start: 84-64-3138Qvkprmpxd encounterBrett MichisFPG [facility] CastaliaStart: 11-14-2022 End: 77-11-0177qcgevxzassWjxxl Kuns Other [employer] Other Start: 19-23-6955Ybelchgua encounterBrett MichisFPG [facility] CastaliaStart: 11-11-2022 End: 53-22-5083mplucopxlzQmddm Kuns Other [employer] Other Start: 51-91-8441Vlyrbz outpatient visit 25 minutes Ellen MichisFPG [facility] CastaliaStart: 11-10-2022 End: 24-22-5168dhukxiricsIeftd Kuns Other [employer] Other Start: 40-32-2326Qyzcawzhz encounterBrett MichisFPG [facility] CastaliaStart: 11-05-2022 End: 05-14-3012Evabaycivw and management of inpatientDR ALTON MANCINI .Facility:H1 Start: 10-08-2022 End: 17-52-9879zurtzabluoKL DOCTOR MISCFacility:Z8Megme: 09-04-2022 End: 00-50-6633cnfmdiqhypOewlu Kuns Other [employer] Other Start: 45-34-2901Ngynjtgbg encounterBrett MichisFPG [facility] CastaliaStart: 09-02-2022 End: 90-54-0978xvdzmrjnecPbzaw Kuns Other [employer]Trust[employer] Other Start: 66-78-7830Zfvjbc outpatient visit 25 minutes Ellen MichidavionFPG [facility] CastaliaStart: 08-29-2022 End: 86-82-2297gzrdciisrzNapno Kuns Other [employer] Other Start: 11-16-7483Gcuneuekf encounterBrett MichisFPG [facility] CastaliaStart: 08-28-2022 End: 06-72-5787tzevhsznqoAsxyd Kuns Other [employer] Other Start: 41-95-5199Nhmrkqluf encounterBrett MichisFPG [facility] CastaliaStart: 06-17-2022 End: 56-17-0274qvjddhncspZkmwb Kuns Other [employer] Other Start: 95-09-3960Zxqmizcad encounterBrett KunsFPG [facility] CastaliaStart: 05-21-2022 End: 19-51-1389ycmzbuispxGklpi Kuns Other [employer] Other Start: 66-75-3334Vnrrbwfqg encounterBrett KunsFPG [facility] CastaliaStart: 04-08-2022 End: 07-57-3116bmxzidbulpUtkky Kuns Other [employer] Other Start: 10-52-5271Liczlkwyl encounterBreshayna ClementG Family Medicine CastaliaStart: 20-63-8474Slcccctyr encounterEllen Crabtree Work Phone: [phone]-JaburSt. John's [facility] 600 DO Work Phone: Start: 03-25-2022 End: 89-68-2936tysxqcogtnSzldy Kuns Other [employer] Other Start: 21-47-4927Znfdvinih encounterBreshayna Rosas [facility] CastaliaStart: 03-18-2022 End: 29-02-9037psmwnpqzbrCtwza Kuns Other [employer] Other Start: 88-29-1499Kssbgbtrk encounterEllen Rosas [facility] CastaliaStart: 03-10-2022 End: 33-98-1181tdlornxyyjCxhcn Kuns Other nocox [employer] Other Start: 30-06-5154Ibpsfpnaj encounterEllen Rosas [facility] CastaliaStart: 02-07-2022 End: 30-85-0099Wrklghykvj and management of inpatientSMARY CARMEN HOPKINSBrooke Army Medical Centertart: 02-07-2022 End: 02-56-4493Jvagaxoaid and management of inpatientSelolmann Ruel Reddy MD Work Phone: [facility] 7KComment on above:Lumbar stenosis with neurogenic claudication (Primary Dx)Start: 01-27-2022 End: 18-00-9771vhjzewsxhqNpohq Kuns Other [employer] Other Start: 53-28-0644Yyxgyvjct for other preprocedural examinationBreshayna Rosas [facility] CastaliaStart: 70-77-3983Djrthq outpatient visit 25 minutesBreshayna Rosas [facility] CastaliaStart: 99-71-5499Khv-procedure evaluation checkBreshayna Crabtree Other noAqueSys Dyn Other Start: 01-23-2022 End: 18-52-5653dwnubxykmvQBUGIT F [facility] CenterStart: 01-23-2022 End: 04-25-8545rinlzmgegtGVOLVC F [facility] CenterStart: 01-20-2022 End: 80-29-4670gjblkrcmhpKaffq Michis Other [employer] Other Start: 03-47-1524Vwudpkvcr encounterBrett LeydaFPG [facility] CastaliaStart: 01-13-2022 End: 13-89-7331llqknwdlveVthpc Kuns Other [employer] Other Start: 01-96-0828Jwkggnfar encounterBrett LeydaFPG [facility] CastaliaStart: 12-05-2021 End: 11-78-6355dflhhdmoqvJqhhz Kuns Other [employer] Other Start: 94-51-7029Vihfuq outpatient visit 25 minutes Ellen BordendavionFPG Family Medicine CastaliaStart: 63-94-3851Sqmir Suzanne Silver Hamm Other bvma OfficeStart: 53-69-5942Hutxe Suzanne Silver Hamm Other bvma OfficeStart: 84-67-4112Tquuxkbwg encounter Phani Henderson MD Work Phone: Pain ManagementComment on above:Post OpStart: 10-23-2021 End: 02-35-1971vsaxlptfjaNbhzr Michis Other [employer] Other Start: 69-47-3474Pjnbzqejc encounterBreshayna Rosas [facility] CastaliaStart: 10-07-2021 End: 40-67-6566exougrtojpWuunm Kuns Other [place] [employer] Other Start: 32-95-7172Zdddhosxb encounterBreshayna Rosas [facility] CastaliaStart: 09-30-2021 End: 41-35-0345invehhewbpGyatc Kuns Other [place] [employer] Other Start: 30-52-4438Yxnfvvwtm encounterBreshayna ClementG [facility] CastaliaStart: 09-27-2021 End: 51-32-1115utdozmfmpaYrdhjwh Ditty Other [employer] Other Start: 55-76-2278Jmgzdifyz encounterCameromelly NunezG GastroenterologyStart: 01-95-0249Htqho UpdateEllen Crabtree Work Phone: [phone]-Wkxaf [facility] [address] [place] Work Phone: Start: 63-29-5990Rkqtkta encounter procedureEllen Crabtree Work Phone: [phone]-Ycwsz [facility] [address] [place] Work Phone: Start: 09-03-2021 End: 18-08-0157tkctsfeehsZnzky Kuns Other [place] [employer] Other Start: 42-04-6644Apnyzmjir encounterBreshayna ClementG [facility] Medicine CastaliaStart: 08-27-2021 End: 39-50-6788xxsflggqioZdpms Kuns Other [place] [employer] Other Start: 40-56-9259Zfozwj outpatient visit 25 minutes Ellen Rosas [facility] CastaliaStart: 08-21-2021 End: 94-73-8534dtrdxcakfbNsslt Kuns Other [place] [employer] Other Start: 79-90-7838Qwhynxber encounterEllen Rosas [facility] CastaliaStart: 53-41-3245Cjeppq consultation new/estab patient 80 minEllen Crabtree Work Phone: [phone]-Ysuci [facility] [address] [place] Work Phone: Start: 83-70-3031Acinxuy encounter procedureEllen Crabtree Work Phone: [phone]-Ngbfo [facility] [address] DO Work Phone: Start: 90-26-3178Wzypeplqj encounterCameron NallelyyFPG GastroenterologyStart: 29-90-8179Hhlczk outpatient visit 15 minutesBreshayna Rosas [facility] CastaliaStart: 08-15-2020 End: 26-41-0516Cggbtuyjnp hospital visit by physicianCt [facility]ana Work Phone: RadiologyComment on above:Radiculopathy of lumbar region [M54.16]Start: 06-21-2020 End: 27-39-3626Cullammnbi hospital visit by physicianXr [facility] LorainRadiology Comment on above:Postlaminectomy syndrome of lumbar region [M96.1]Start: 06-15-2020 End: 79-48-9180Ujqbxvcfpt hospital visit by physicianCt [facility] Joana Work Phone: RadiologyComment on above:Pain in thoracic spine [M54.6]Start: 12-29-2017 End: 99-00-3294Gyxfxtcsza and management of inpatientERIC T RICCHETTIEuclid HospitalStart: 17-99-2905UbmykooatiWDNL T RICCHETTIEuclid HospitalStart: 07-01-2017 End: 84-34-4835Czulimaysz and management of inpatientROBERT M MUNDOOYLutheran HospitalStart: 05-30-2016 End: 54-55-1943CdvlidosdgQAYNELTC UNKNOWNFacility:[facility] Procedures DateProcedureProcedure DetailPerforming ClinicianStart: 49-86-7645Gbtbns-up visitFollow-upJETHOMAS Cox AMSDELLStart: 04-16-8704Mveioj-up visitJUSTIN HSUStart: 85-53-3701Xscvsk-up visitJUSTIN HSUStart: 49-56-4731KABUOYXTE BLOOD PRESSURE Heidy Marin MD Work Phone: [phone]: 12-57-6706Zb abdominal aorta real time screen study aaaMoruby Marin MD Work Phone: [phone]: 33-34-8233FU of abdomen and pelvis without contrastBrett Kuns DO Work Phone: Start: 86-46-3332Hhyjt cultureBrett Kuns DO Work Phone: Start: 72-72-1287PR cervical spine without contrast Ellen Kuns DO Work Phone: Start: 21-81-0673VV of facial bones without contrast Ellen Kuns DO Work Phone: Start: 84-03-0812FR of head without contrastBrett Kuns DO Work Phone: Start: 90-71-8424Bpgjs depression screening assessment Samira Bowden MD Work Phone: Start: 64-38-5965Jrerfdqt identified in Urine by CultureStart: 89-28-5117Kkien Culture 1Start: 33-96-0740Lqokg Culture 2Start: 67-84-9158EbcpmzyleykPY Ellen Kuns Work Phone: Start: 33-61-0020Lquhwjdp identified in Urine by CultureStart: 86-89-7439Mrqcg depression screening assessmentSamira Bowden MD Work Phone: Start: 46-80-8700Olxtscuqb of suprapubic catheter using ultrasound guidanceFidel IBARRA Start: 00-64-9879KjafgbngzjyoeepmGUZQT KUNSStart: 85-03-5352Otuik depression screening assessmentSamira Bowden MD Work Phone: Start: 55-11-7846Hjoh bld gluc mntr dev cleared fda spec home useTucker Robbins MD Work Phone: Start: 29-47-5945MENBO-19, RAPIDSeolga Reddy MD Work Phone: Start: 17-59-7076Gtiq bld gluc mntr dev cleared fda spec home useTucker Robbins MD Work Phone: Start: 71-18-2480Srxt bld gluc mntr dev cleared fda spec home useTucker Robbins MD Work Phone: Start: 74-63-6842Tkgx bld gluc mntr dev cleared fda spec home useTucker Robbins MD Work Phone: Start: 08-43-3758Bjex bld gluc mntr dev cleared fda spec home useTucker Robbins MD Work Phone: Start: 86-32-4495Wvlq bld gluc mntr dev cleared fda spec home useTcuker Robbins MD Work Phone: Start: 76-52-5550Cuzu bld gluc mntr dev cleared fda spec home useSelvon Ruel Reddy MD Work Phone: Start: 22-50-7430Xqyg bld gluc mntr dev cleared fda spec home useTucker Robbins MD Work Phone: Start: 02-16-2022 End: 00-83-1505Bnae bld gluc mntr dev cleared fda spec home useTucker Robbins MD Work Phone: Start: 85-33-5552Mtms bld gluc mntr dev cleared fda spec home useTucker Robbins MD Work Phone: Start: 56-23-9831Nnjk bld gluc mntr dev cleared fda spec home useTucker Robbins MD Work Phone: Start: 14-45-2909Nsdmw gap [Moles/Vol]Evelina Parra MD Work Phone: Start: 41-32-8548Tixha metabolic panel calcium total Evelina Parra MD Work Phone: Start: 76-69-3773PYQRRHYFBL FILTRATION RATE, ESTIMATED Evelina Parra MD Work Phone: Start: 44-05-3255Lyma bld gluc mntr dev cleared fda spec home useTucker Robbins MD Work Phone: Start: 46-44-2579Zktf bld gluc mntr dev cleared fda spec home useTucker Robbins MD Work Phone: Start: 02-14-2022 End: 57-80-8783Eqas bld gluc mntr dev cleared fda spec home useTucker Robbins MD Work Phone: Start: 36-37-9261Ijjx bld gluc mntr dev cleared fda spec home useTucker Robbins MD Work Phone: Start: 11-63-5222Jhci bld gluc mntr dev cleared fda spec home useTucker Robbins MD Work Phone: Start: 17-01-1934Yuiv bld gluc mntr dev cleared fda spec home useTucker Robbins MD Work Phone: Start: 49-35-1966Jgbx bld gluc mntr dev cleared fda spec home useTucker Robbins MD Work Phone: Start: 92-06-1285Hwws bld gluc mntr dev cleared fda spec home useTucker Robbins MD Work Phone: Start: 74-20-7853Jwpw bld gluc mntr dev cleared fda spec home useTucker Robbins MD Work Phone: Start: 14-65-3507Kjmut gap [Moles/Vol]Evelina Parra MD Work Phone: Start: 96-60-9254Uldhq metabolic panel calcium total Evelina Parra MD Work Phone: Start: 01-37-3917MGLMPSMSTD FILTRATION RATE, ESTIMATED Evelina Parra MD Work Phone: Start: 54-21-7089Qkal bld gluc mntr dev cleared fda spec home useTucker Robbins MD Work Phone: Start: 29-43-9644Zqva bld gluc mntr dev cleared fda spec home useTucker Robbins MD Work Phone: Start: 42-51-5482Dlqn bld gluc mntr dev cleared fda spec home useTucker Robbins MD Work Phone: Start: 49-68-1836Lwyw bld gluc mntr dev cleared fda spec home useSmary carmen Reddy MD Work Phone: Start: 91-59-3474Fsfo bld gluc mntr dev cleared fda spec home useSmary carmen Reddy MD Work Phone: Start: 50-24-8355Odse bld gluc mntr dev cleared fda spec home useSmary carmen Reddy MD Work Phone: Start: 29-30-4846Oqlft count complete automatedEvelina Parra MD Work Phone: Start: 02-10-2022 End: 27-07-1369Rncka of thyroid stimulating hormone tshEvelina Parra MD Work Phone: Start: 36-77-8983RGLYCKA B12 & FOLATEEvelina Parra MD Work Phone: Start: 13-27-2082Hvja bld gluc mntr dev cleared fda spec home Henry Reddy MD Work Phone: Start: 82-88-1631Vihx bld gluc mntr dev cleared fda spec home useSmary carmen Reddy MD Work Phone: Start: 98-58-0951Szou tthrc r-t 2d w/wom-mode compl spec&colr dBjordy Schrader MD Work Phone: Start: 64-87-4648Mzgi bld gluc mntr dev cleared fda spec home Henry Reddy MD Work Phone: Start: 76-23-7178Lrxt bld gluc mntr dev cleared fda spec home Henry Reddy MD Work Phone: Start: 89-74-5812Thdz bld gluc mntr dev cleared fda spec home Henry Reddy MD Work Phone: Start: 40-04-0451Nwzbxdpq Trisha Jorgensen MD Work Phone: start: 02-09-2022 End: 71-73-6037Iuwvkdxy totalJade Ramsey [employer] DEVELOPER - [employer]ENT Work Phone: Start: 11-42-4361Yhxm bld gluc mntr dev cleared fda spec home Henry Reddy MD Work Phone: Start: 92-31-5779Jloilitj totalMarcos Jorgensen MD Work Phone: start: 14-48-5427Wqnwu count complete auto&auto difrntl wbcJade Ramsey [employer] DEVELOPER - [employer]ATION [employer]ENT Work Phone: Start: 31-84-2677Vkfy bld gluc mntr dev cleared fda spec home Henry Reddy MD Work Phone: Start: 81-62-2666Rkzs bld gluc mntr dev cleared fda spec home Henry Reddy MD Work Phone: Start: 37-53-8776Ozgnh gap [Moles/Vol]Marielena Ramsey [employer] DEVELOPER - [employer]ATION [employer]ENT Work Phone: Start: 02-08-2022 End: 28-30-9236Qtbyz metabolic panel calcium Trisha Jorgensen MD Work Phone: start: 94-76-7993FTYTOJQZWQ FILTRATION RATE, ESTIMATED Marielena Ramsey [employer] DEVELOPER - [employer]ATION [employer]ENT Work Phone: Start: 68-03-3637MBGM OF BLOOD SMEARJade Ramsey [employer] DEVELOPER - STOCK AND STATION AGENT Work Phone: Start: 15-99-9607Osbj bld gluc mntr dev cleared fda spec home Henry Reddy MD Work Phone: Start: 33-26-0544Lall bld gluc mntr dev cleared fda spec home Henry Reddy MD Work Phone: Start: 73-73-3252Kvhzxpzvpe exam chest single viewJade Ramsey [employer] DEVELOPER - [employer]ATION AGENT Work Phone: Start: 65-82-8026Tasce count hemoglobinJade Ramsey [employer] DEVELOPER - [employer]OCK [employer]ATION AGENT Work Phone: Start: 70-11-2560Kob routine ecg w/least 12 lds i&r onlyJade Ramsey [employer] DEVELOPER - [employer]OCK [employer] STATION AGENT Work Phone: Start: 11-00-4086Vcnb bld gluc mntr dev cleared fda spec home Henry Reddy MD Work Phone: Start: 93-46-7781Mifis gap [Moles/Vol]Unknown Provider ResultStart: 02-08-2022 End: 77-26-3504Mjvez metabolic panel calcium Imelda Reed PA-C Work Phone: Start: 79-60-6055EBEKIFSWKP FILTRATION RATE, ESTIMATED Unknown Provider ResultStart: 82-54-9592Qvkw bld gluc mntr dev cleared fda spec home Henry Reddy MD Work Phone: Start: 01-58-8309Dhqc bld gluc mntr dev cleared fda spec home Henry Reddy MD Work Phone: Start: 21-03-6983Jnvou spine 1 view specify level Frank Reddy MD Work Phone: Start: 79-08-5239Soktx spine 1 view specify level Frank Reddy MD Work Phone: Start: 02-07-2022 End: 41-65-5576Ufbkxvcve segmental instrumentation 3-6 vrt Kerry Reddy MD Work Phone: Start: 71-66-4592Vxmxvcno screenSeljulee Reddy MD Work Phone: Comment on above:Performed at [facility] [address], [place] [address]Ooobl: 24-16-4746Lzoa bld gluc mntr dev cleared fda spec home useSmary carmen Reddy MD Work Phone: Start: 83-72-9096Qseop typing serologic aboFrank Reddy MD Work Phone: Start: 40-22-2642Xtywd conduction studies 9-10 studies Lashon OsborneStart: 16-33-5881Khdiq conduction studies 7-8 studiesCarmela OsborneStart: 53-09-1122Zuehi depression screening assessmentPhilakeisha Henderson MD Work Phone: Start: 35-42-8661Mn lumbar spine w/o contrast material Gary Paniagua DO Work Phone: Start: 33-30-1294Eobuu spine lumbosacral 2/3 views Phani Henderson MD Work Phone: Start: 05-30-1901Nb thoracic spine w/o contrast materialOumou Mcqueen APRN.CNP Work Phone: Start: 47-75-5169Zikkqyet screenStart: 10-18-2019 Antibody screenStart: 89-09-5428Pppnuitfh on prostatePatrick [employer] Start: 65-73-0305Ejyomoizhmqqd prostatectomyPatrick [employer] Start: 65-11-7344Avdlxledp of therapeutic substance into bladder wallPatrick IBARRA Start: 51-74-9221Pjvkw colonoscopyBrett Eunice Crabtree Work Phone: Start: 02-08-2018H/O: artificial jointStatus post replacement of left shoulder jointPhani Henderson MD Work Phone: Start: 11-22-0194Otnomgyfelrti insertion of prostatic urethral lift implantPatrick IBARRA Start: 79-83-9316RwyitwpkkfDqotnnm IBARRA Start: 23-51-4197Nroumndcuf studiesPauniversity hospitals [facility] IBARRA Start: 65-44-7790DrkwxdmslfwZzytucue Berenger MD Work Phone: Arthroplasty of kneeBrett R Leyda Work Phone: Comment on above:x 3;Arthroplasty of kneePatrick IBARRA Bypass of stomachPatrick IBARRA ColonoscopyPabaptist health paducahjudy IBARRA Esophagogastrostomy, antesternal or antethoracicBrett R Leyda Work Phone: Operation on the earBrett R Leyda Work Phone: Comment on above:reconstruction;Operative procedure on handBrett R Kuns Work Phone: Comment on above:x 3 - right;Procedure on backBrett R Kuns Work Phone: Comment on above:x 8;Procedure on lymph nodeBrett R Nevigos Work Phone: Comment on above:right neck;Prosthetic arthroplasty of shoulderBrett R Kuns Work Phone: Comment on above:left;Prosthetic arthroplasty of the hipBrett R Nevigos Work Phone: Comment on above:bilateral;Repair of musculotendinous cuff of shoulderEllen Crabtree Work Phone: Comment on above:x 2 right;Shoulder region structure (body structure)Fidel IBARRA TonsillectomyFidel IBARRA Plan of Treatment DateCare ActivityDetailAuthorStart: 77-72-5894LEiG,Tdap and Td Vaccines (3 - Td or Tdap)DTaP,Tdap and Td Vaccines (3 - Td or Tdap)[facility]: 76-93-2355SUlG/Tdap/Td vaccine (3 - Td or Tdap)DTaP/Tdap/Td vaccine (3 - Td or Tdap)[facility] SystemStart: 62-17-7318Nnene microalbumin profileDTAP,TDAP,TD (3 - Td or Tdap)[facility]art: 32-09-9434SyaobwkcbcuIHCKMBXPFMNQthzijcqz Clinic Start: 93-22-3501KOYIJMIFOZ CANCER SCREENINGCOLORECTAL CANCER SCREENINGOhioHealth Grant Medical Centertart: 62-60-4257Yyjew BMI ScreeningAdult BMI ScreeningAtrium Healthtart: 54-85-6380Qrsvgdt ScreeningTobacco ScreeningMart[facility]erry [facility] Start: 58-53-5926Bptgj BMI ScreeningAdult BMI ScreeningMartins Ferry [facility] Start: 16-41-7767Oqsvzwi ScreeningTobacco ScreeningAtrium Healthtart: 11-30-2025 End: 20-98-3099Asrqchg encounter ltbfmjlif45/12/2026 11:00 AM EST [facility] Department of [place] [id number] [facility] [address] [place] [id number] Lyn Banks MD [facility] [address] [place], [place] [id number] [facility], A Department of [facility] Start: 09-12-2025 End: 56-31-2700Kbmreqa encounter ovgvstokx13/25/2025 11:00 AM EST Office Visit [facility], A Department of [facility] [facility] [address] [place] [phone] Tony Martin MD [address] [facility] [address] [place] [address] [facility], A Department [facility] Hospitaltart: 68-10-4453Vcpro BMI Follow Up PlanAdult BMI Follow Up PlanSelect Medical [facility] Health SystemStart: 77-35-2751Ifzyr BMI ScreeningAdult BMI ScreeningSelect Medical [facility] Health SystemStart: 09-86-9009Oqtugutszf ScreeningDepression ScreeningProMedica Flower Hospital SystemStart: 52-39-4675Lmqyhvv ScreeningTobacco ScreeningSelect [facility] Start: 08-02-2025 End: 23-04-3295DKZ 12 leadECG 12 lead ECG Routine QT prolongation Expected: 08/02/2025 (Approximate), Expires: 07/26/2026[facility] Work Phone: Comment on above:Expected: 08/02/2025 (Approximate), Expires: 07/26/2026Start: 07-26-2025 End: 18-43-5913Pvtpvig encounter zdkbgizyv69/08/2025 10:00 AM EDT Office Visit [facility], A Department of [facility] [facility] [address] [place] [phone] Lyn Banks MD [facility] [facility], [address] [place] [address] [facility] Department of [facility] Start: 99-47-2726TrjqtSt. Vincent Hospitaltart: 07-17-[address] [facility] Medical Centertart: 96-96-0018GkgwrqtbfMercy Health St. Vincent Medical Centertart: 73-52-8771YqhtdkdyuOhiohealth Dublin Methodist Hospital CenterStart: 06-28-2025 [facility] Shawtart: 53-29-9797Qwuovtcg to clinical allergistMercy Health St. Vincent Medical Centertart: 09-05-0738HPUMJ-19 Vaccine ( season)COVID-19 Vaccine ( season)[facility]: 18-39-6450Hvojcwjqp vaccinationInfluenza VaccineProCleveland Clinic South Pointe Hospital SystemStart: 04-25-2025 End: 00-19-7788Qzauapc encounter kzhpoccbu10/08/2025 3:00 PM EDT Office Visit [facility], A Department of [address], [address] [place] [phone] Lyn Banks MD [address] [place] [address] [address], [address] [place], [place] [id number] [facility], A Department of [facility] Start: 03-29-2025 End: 50-06-6665Cjmkpic encounter procedureProWexner Medical Center - CT ImagingStart: 14-03-0719Hqxsl BMI ScreeningAdult BMI ScreeningAtrium Healthtart: 03-16-2025 End: 11-66-0591PO.doppler Extremity arteries - bilateral for physiologic artery studyVas art doppler lwr bilat mult lev/PVR Vascular Ultrasound Routine Encounter for abdominal aortic aneurysm (AAA) screening Open wound of left great toe, subsequent encounter Critical limb ischemia ofleft lower extremity with gangrene ([facility]) Expected: 03/16/2025, Expires: 03/16/2026[facility] Work Phone: Comment on above:Expected: 03/16/2025, Expires: 03/16/2026Start: 03-16-2025 End: 41-62-7235Pocmjmy encounter procedureProGrace Medical Centert Vascular SurgeryStart: 03-14-2025 End: 40-23-0497QC Head WO contrastCT brain without contrast Imaging Routine Cerebellar dysmetria Expected: 03/14/2025, Expires: 03/14/2026[facility] SystemComment on above:Expected: 03/14/2025, Expires: 03/14/2026Start: 03-14-2025 End: 04-49-6905MI videography Hypopharynx and Esophagus ViewsFluoroscopy swallow motility function Imaging Routine Dysphagia, unspecified type Globus sensation Expected: 03/14/2025, Expires: 03/14/2026[facility] Work Phone: Comment on above:Expected: 03/14/2025, Expires: 03/14/2026Start: 73-42-0048Zmbdk BMI ScreeningAdult BMI ScreeningProUsa Health University Hospital Health SystemStart: 76-18-0101Ryidlua ScreeningTobacco ScreeningProUsa Health University Hospital Health SystemStart: 01-27-2025 End: 20-59-0132EB.doppler Aorta and Iliac artery - bilateralVas aorta/iliac duplex complete Vascular Ultrasound Routine Encounter for screening for abdominal aortic aneurysm (AAA) in patient 50 years of age or older with history of smoking Abdominal aortic aneurysm dissection ([facility]) Expected: 01/27/2025 (Approximate), Expires: 07/29/2025[facility] Work Phone: Comment on above:Expected: 01/27/2025 (Approximate), Expires: 07/29/2025Start: 64-47-7850Nzrurjau screenDiabetes screenMercy Health Start: 75-29-0917Beozh cultureMercy Health St. Vincent Medical Centertart: 12-13-2024 Bacteria identified in Urine by CultureUrine CultureMercy Health St. Vincent Medical Centertart: 56-75-0359Nqvvqapsbq ScreeningDepression ScreeningProMedica Flower Hospital SystemStart: 16-89-4665Mslbnij ScreeningTobacco ScreeningProUsa Health University Hospital Health System Start: 09-06-2024 End: 98-27-8455Ljrsthidpmtf consultation with wlzeahi6009/06/2024 12:30 PM EST Telemedicine [facility] [address] [place] [phone] Samira Bowden MD [address] [place] [address], [address], [address], [address] [place], [place] [phone] [facility] NeurologyStart: 08-23-2024 End: 86-38-0399Jrjhdvx encounter eyyuralje34/05/2024 11:30 AM EST Office Visit [facility] [address] [place] [phone] Samira Bowden MD [address] [facility], [address], [address], [address] [place] [address] [facility] NeurologyStart: 82-88-0776Kxmit BMI ScreeningAdult BMI ScreeningProMedica Flower Hospital SystemStart: 83-99-6105Dwtgzab ScreeningTobacco ScreeningProCleveland Clinic South Pointe Hospital SystemStart: 79-12-2416NOAAM-19 Vaccine ( season)COVID-19 Vaccine ()[facility] SystemStart: 66-03-8050QOBIX-19 Vaccine ()COVID-19 Vaccine ()[facility] SystemStart: 72-39-7886Dytiwxreu vaccinationInfluenza VaccineProCleveland Clinic South Pointe Hospital SystemStart: 51-10-0353wydytbpaogNgxbngrwhsHbwptgsx:EU BellevueStart: 03-17-2024 End: 22-62-9277Yynlbxz encounter chonolorn24/30/2024 11:30 AM EDT Office Visit [facility] [address] [place] [address] Heidy Marin MD [address], [address] [address] [facility] Wound CareStart: 02-25-2024 End: 60-44-1341Imuuzgm encounter ezchtslaz16/09/2024 8:40 AM EDT Office Visit [facility] [address] [place] [address] Heidy Marin MD [address], [facility] [address] [place] [address] [facility] Wound CareStart: 07-02-0806BzrccrqikMercy Health St. Vincent Medical Centertart: 01-28-2024 End: 57-01-6375JO.doppler Extremity arteries - bilateral for physiologic artery studyVas art doppler lwr bilat mult lev/PVR Vascular Ultrasound Routine Critical limb ischemia of both lower extremities with gangrene ([facility]) Expected: 01/28/2024, Expires: 01/27/2025Pro[facility] Hospital SystemComment on above:Expected: 01/28/2024, Expires: 01/27/2025Start: 01-28-2024 End: 87-33-7927Juvvheg encounter kzxfzjosn56/11/2024 9:20 AM EDT Office Visit [facility] [address] [place] [address] Heidy Marin MD [address], [address] [address] [facility] Wound CareStart: 01-14-2024 End: 35-38-7326Ptdhunb encounter hvkdikmlu78/28/2024 9:50 AM EDT Office Visit [facility] [address] [place] [address] Sergio Anguiano MD [address], [address] [address] [facility] W[facility] CareStart: 17-55-6852Gydzklzon B surface antibody levelLDL CHOLESTEROLOhioHealth Grant Medical Centertart: 11-16-2023 End: 60-18-1823Xhhrash encounter zxlnhedgu96/29/2024 1:00 PM EST Office Visit [facility] [address] [place] [phone] Ramos Cervantes, RPG DEVELOPER-STOCK AND STATION AGENT [address] [place] [address] [facility] NeurologyStart: 49-10-3777Pkah Risk ScreeningFall Risk ScreeningAtrium Healthtart: 2023 PNEUMOCOCCAL (3 - PPSV23 if available, else PCV20)PNEUMOCOCCAL (3 - PPSV23 if available, else PCV20)[facility] Centertart: 29-42-6318RCUYGWFKQWVM (3 - PPSV23 or PCV20)PNEUMOCOCCAL (3 - PPSV23 or PCV20)[facility] Centertart: 2023 Pneumococcal 0-64 years Vaccine (3 - PPSV23 or PCV20)Pneumococcal 0-64 years Vaccine (3 - PPSV23 or PCV20)[facility] SystemStart: 39-09-1966Mgzyb BMI Follow Up PlanAdult BMI Follow Up PlanProKettering Health Behavioral Medical Centertart: 34-41-1267Siflxjwifl ScreeningDepression ScreeningProKettering Health Behavioral Medical Centertart: 17-76-5935DZDFH-19 Vaccine ( season)COVID-19 Vaccine ( season)[facility]art: 58-43-7876Qafmjaffw vaccinationOhioHealth Grant Medical Centertart: 82-37-6236PLQJQRQKGJ ASSESSMENTDEPRESSION ASSESSMENTOhioHealth Grant Medical Centertart: 44-21-1319GPNLG-19 VACCINE (5 - Booster for Moderna series)COVID-19 VACCINE (5 - Booster for Moderna series)[facility] Centertart: 31-71-6794YDVDM-19 VACCINE (6 - Moderna series)COVID-19 VACCINE (6 - Moderna series)[facility] Centertart: 61-88-5840Zivfq depression screening assessmentDEPRESSION SCREENINGOhioHealth Grant Medical Centertart: 64-45-4629MYQ, Provider: Ren Watson, Status: Pen, Time: 10:10 AMFUV, Provider: Ren Watson, Status: Pen, Time: 10:10 AMMP-[place] [address] [place] Work Phone: Start: 39-63-7218OEVOFW NUC, Provider: BRIGITTE SANTIZOI NUCLEAR ,[id number], Status: Pen, Time: 12:00 PMSTRESS NUC, Provider: BRIGITTE SANTIZOI NUCLEAR ,[id number], Status: Pen, Time: 12:00 PM-[facility] 250 DO Work Phone: Start: 72-71-2058Ilkaxtuhra A1c/Hemoglobin.total in RdejyNFB7SXwmkbrcyo ClinicStart: 52-74-0060QPYKUP PCP TEAM CHRONIC DISEASE VISIT ANNUAL PCP TEAM CHRONIC DISEASE VISITOhioHealth Grant Medical Centertart: 03-16-2019 Administration of varicella zoster vaccineZoster (Shingles) Vaccine (2 of 2) [facility]: 10-91-2798Rhtnfphu vaccine (2 of 2)Shingles vaccine (2 of 2)[facility] SystemStart: 24-89-5801GOEWAUKA VACCINE (2 of 2)SHINGRIX VACCINE (2 of 2)[facility] Centertart: comp foot exam completed DIABETIC FOOT EXAMOhioHealth Grant Medical Centertart: 14-03-6067Zfudxgkbi vaccinationLUNG CANCER SCREENINGOhioHealth Grant Medical Centertart: 54-57-7448VLSTAVRN CANCER SCREENING DISCUSSIONPROSTATE CANCER SCREENING DISCUSSIONOhioHealth Grant Medical Centertart: 2008 Influenza vaccinationLUNG CANCER SCREENINGOhioHealth Grant Medical Centertart: 2008 Screening for malignant neoplasm of lungLow dose CT lung screeningAvita Health System Start: 45-47-8619KKHCDOJPY (FIT-DNA)COLOGUARD (FIT-DNA)[facility] Hospitalrt: 49-59-3382AS COLONOGRAPHYCT COLONOGRAPHYOhioHealth Grant Medical Centertart: 21-03-1570EJXJJ OCCULT BLOODFECAL OCCULT BLOODMartin Memorial Hospitalrt: 96-64-0384Todlwgscm for malignant neoplasm of colonAvita Health SystemStart: 15-93-8575FPEJPETMAWXXQ SIGMOIDOSCOPYOhioHealth Grant Medical Centertart: 16-11-5473Quhjqruorj acid therapyALPHA-1 ANTITRYPSIN DEFICIENCY SCREENINGOhioHealth Grant Medical Centertart: 66-59-6541Gvowx BMI Follow Up PlanAdult BMI Follow Up PlanAtrium Healthtart: 96-75-7308WU CONTROLLED (<130/80)BP CONTROLLED (<130/80)[facility] Hospitalrt: 1976 Diabetic foot examinationDiabetic Foot ExamProKettering Health Behavioral Medical Centertart: 28-62-4070Vrmycmidv B surface antibody levelLDL CHOLESTEROLPromedica Flower Hospital Start: 50-18-6150ZSRLAVWHU C SCREENINGHEPATITIS C SCREENINGPromedica Flower Hospital Start: 81-85-0163Kbnpynhxd C screeningHepatitis C screenAvita Health SystemStart: 10-68-4432JMU SCREENINGHIV SCREENINGOhioHealth Grant Medical Centertart: 20-80-4929ZKANTACCKT SPIROMETRYOhioHealth Grant Medical Centertart: 15-12-6499NTW screeningHIV screenAvita Health System Start: 86-19-9620Rpxdwdgiog ScreenDepression ScreenAvita Health SystemStart: 1968 Hepatitis B screeningURINE ALBUMIN:CREATININE RATIOOhioHealth Grant Medical Centertart: 04-99-1107Mqhacmdtw C antibody, confirmatory testDILATED RETINAL EXAMOhioHealth Grant Medical Centertart: 98-20-0647Vtlet panelLipidsAvita Health SystemStart: 81-15-4172Hfurjc Wellness Visit (AWV)Annual Wellness Visit (AWV)[facility] SystemStart: 1958 Glaucoma screeningDiabetic Ophthalmology ExamProKettering Health Behavioral Medical Centertart: 1958Medicare Annual Wellness VisitMedicare Annual Wellness VisitAtrium Healthtart: 87-95-9507Tnuuta Use: CardiovascularStatin Use: CardiovascularAtrium Healthtart: 90-82-9816Buualb Use: DiabeticStatin Use: DiabeticAtrium Healthtart: 29-38-7686Adqqjrt CounselingTobacco CounselingMartins Ferry HospitalComprehensive metabolic 2000 panel - Serum or PlasmaNorwalk Memorial HospitalCT Abdomen and Pelvis W contrast IV [facility] End: 36-98-2419MQT With NCVEMG With NCV Neurology Routine Spinal stenosis of lumbar region with neurogenic claudication 1 Occurrences starting 08/23/2024 until 08/23/2025[employer] Work Phone: Comment on above:1 Occurrences starting 08/23/2024 until 08/23/2025Glucose [Mass/volume] in Serum or PlasmaAvita Health System Work Phone: comment on above:4X Daily (AC & HS) until discontinued starting 02/11/2022, 27 completedAs Needed until discontinued starting 02/11/2022Glucose measurement estimated from glycated hemoglobinNorwalk Memorial HospitalHemoglobin A1c/Hemoglobin.total in BloodNorwalk Memorial HospitalHome BIPAP or CPAPHome BIPAP or CPAP Respiratory Care Routine QHS until discontinued starting 02/16/2022[employer] Work Phone: comment on above:QHS until discontinued starting 2Oxygen therapy [Minimum Data Set]Initiate Oxygen Therapy Protocol Respiratory Care Routine As Needed until discontinued starting 02/07/2022[facility] centrose Work Phone: comment on above:As Needed until discontinued starting 2Patient EducationOhiohealth Dublin Methodist Hospital Ctr Work Phone: Patient referralOhiohealth Dublin Methodist Hospital Ctr Work Phone: [facility] Immunizations Immunization DateImmunizationNotesCare FddaikmcJzwlwhdu30-56-4671ylrodkbgp, high dose seasonal, preservative-freeBrett Kuns DO Work Phone: [facility]02-03-2025influenza virus vaccine, unspecified formulationLyn Banks MD Work Phone: [facility]erry HospitalFapxzt69-91-0155jaouihxoa, high dose seasonal, preservative-freeBrett Kuns Other [facility]01-23-2024influenza virus vaccine, unspecified formulationNorwalk Memorial Hospital 92-27-9920yvvnoendgoza conjugate vaccine, 13 valentPaKeystone Mobile Partner [facility]12-01-2022influenza virus vaccine, unspecified formulationPaKeystone Mobile Partner [facility]11-15-2022influenza, injectable, quadrivalent, contains preservative Ellen Kuns Other [facility]11-15-2022influenza virus vaccine, unspecified formulationorderTopia [facility]11-15-2022influenza, injectable, quadrivalent, preservative free [facility]01-19-2022COVID-19, Moderna, 100mcg/0.5ml Lashon OsSpinalMotion Inc 1381203-31-7486ggunpxrux virus vaccine, unspecified formulationPaKeystone Mobile Partner [facility]12-28-2021Influenza, injectable, Madin Ninfa Canine Kidney, preservative free, quadrivalentEllen Crabtree Work Phone: [facility]12-28-2021Moderna COVID-19 Vaccine 100 MCG/0.5ML Intramuscular SuspensionBreshayna Crabtree Work Phone: [facility]04-14-2021COVID-19, Moderna, 100mcg/0.5mlCarmela OsSpinalMotion Inc [id number]-41 Vaccine Moderna - Documentation Purposes OnlyEllen Crabtree Other [facility]03-17-2021COVID-19, Moderna, 100mcg/0.5mlCarmela OsRisk Management Solutionkings park psychiatric centerParchment Inc [id number]-49 Vaccine Moderna - Documentation Purposes OnlyEllen Crabtree Other [facility]09-29-2020influenza virus vaccine, unspecified formulationPaKeystone Mobile Partner [facility]09-29-2020influenza, injectable, quadrivalent, contains preservative Ellen Crabtree Other [facility] HospitalNvcogl56-15-4915brqszcsdf, injectable, quadrivalent, preservative freeNorwalk Memorial Hospital06-25-2020 Toradol per 15 mgBrett Kuns Other [employer] Other 11380591-64-2028zorfggbfm virus vaccine, unspecified formulationorderTopia [facility]11-06-2019influenza, high dose seasonal, preservative-freeBrett Kuns Other [facility] HospitalZwhhnx43-90-9506srvmzt vaccine recombinant Ellen Kuns Other [facility] HospitalZuhain21-84-2489mqzvdn vaccine, unspecified formulationSamira Bowden MD Work Phone: [facility] HospitalDaxwkr39-00-8210mmzirnsezskz conjugate vaccine, 13 valentPhani Henderson MD Work Phone: [facility] HospitalEsdjde79-22-6459rqyjcjh toxoid, reduced diphtheria toxoid, and acellular pertussis vaccine, adsorbedPhilakeisha Henderson MD Work Phone: [facility] HospitalVrlppl82-63-3696swpjseuer virus vaccine, unspecified formulationorderTopia [facility]09-19-2018influenza, injectable, quadrivalent, contains preservative Ellen Kuns Other [facility] HospitalYvdltx50-34-2967opltvdctm, injectable, quadrivalent, preservative [facility]07-19-2018 Toradol per 15 mgBrett Kuns Other noTrustifi Other 12-250904-65-7885Ojldcxe per 15 mgBrett Kuns Other [employer] Other 11-233761-33-0894Joblyab per 15 mgBrett Kuns Other [employer] Other 09-103860-65-2251rcsqohjpg virus vaccine, unspecified formulationorderTopia [facility]09-13-2017influenza, injectable, quadrivalent, preservative freeBrett R Kuns Work Phone: [facility] HospitalIcblfx35-47-8684Xzvmqjx per 15 mgBrett Kuns Other [employer] Other 04169025-21-9138Dbnyvze per 15 mgBrett Kuns Other [employer] Other 03565196-93-1707Humcfzi per 15 mgBrett Kuns Other [employer] Other 10048542-43-9534weifhrhxg virus vaccine, unspecified formulationorderTopia [facility]10-25-2016influenza, high dose seasonal, preservative-freeBrett R Kuns Work Phone: [facility] HospitalGbacif92-24-7545epqlhfnls, injectable, quadrivalent, preservative [facility]10-25-2016 Toradol per 15 mgBrett Kuns Other [employer] Other 10695147-18-4862djspadbli, injectable, quadrivalent, contains preservativeBrett Kuns Other [employer] Other 03408114-25-2259Kqutudj per 15 mgBrett Kuns Other [employer] Other 01944664-75-7634uiyxxvb toxoid, reduced diphtheria toxoid, and acellular pertussis vaccine, adsorbedBrett Kuns Other [facility] HospitalMcuttk42-21-1419Bdnyezk per 15 mgBrett Kuns Other [employer] Other 10494770-52-2036tmevtotwy virus vaccine, unspecified formulationUofl Health - Medical Center Southjudy IBARRA [facility]10-05-2015influenza, injectable, quadrivalent, preservative freeBrett R Kuns Work Phone: [facility] HospitalTbzqms30-92-6366vhpcsnihh, injectable, quadrivalent, contains preservativeBrett Kuns Other [employer] Other 949177-45-6491mezmdjxad, injectable, quadrivalent, preservative [facility]01-08-2015Toradol per 15 mg Ellen Kuns Other [employer] Other 01736168-56-2044cclonvffm, injectable, quadrivalent, contains preservativeBrett Kuns Other [employer] Other 09214755-07-6031Caqwjdb per 15 mgBrett Kuns Other [employer] Other 09008204-04-5103Otlqlmu per 15 mgBrett Kuns Other [employer] Other 07621998-55-7159Qqyibsg per 15 mgBrett Kuns Other [employer] Other 04687990-29-4480Wminhjh per 15 mgBrett Kuns Other [employer] Other 11-732856-76-8703fanezmhgn virus vaccine, split virus (incl. purified surface antigen)Ellen Kuns Other [employer] Other 11-613014-97-8020aovfjzxko virus vaccine, unspecified formulationNor[facility] Hospital09-27-2010influenza virus vaccine, unspecified formulationPhani Henderson MD Work Phone: [facility] HospitalZjkvku75-07-4539tkebi cmbjoquwb-V1X1-78, preservative-free, injectableBreshayna Dawson Leyda Work Phone: [facility] HospitalRajqcf98-86-5601hmytkxrai B vaccine, adult dosageBarbiett R Leyda Work Phone: [facility] HospitalPencpl29-77-3058kyauaakwy B vaccine, adult dosageBrett R Leyda Work Phone: [facility] HospitalPzwtfs38-13-6193rbmnkxookdmc polysaccharide vaccine, 23 valentEllen Crabtree Other [facility] Payers DatePayer CategoryPayerPolicy [id number]-hgi [id number] IndemnityMEDICAL MUTUAL Member Subscriber Plan / Payer (Effective 2023-Present) Name: Alisia Correa Sr. Relation to Subscriber: Self Name: Alisia Correa Sr. Payer ID: Not on file Type: Not on file Address: [facility] [address] [place] [id number]311-78-1465 Private Health [id number] [id number] 2021MedicareAETNA MEDICARE AETNA MEDICARE HMO [id number] 2021-Present [phone] [address] [place] [address] O [id number] 1.2.840.452624.1.13.159.2.7.3.158212.315 2020Medicare 1.2.840.014234.1.13.159.2.7.3.951509.315 2004Unknown1960Medicare [id number] 2.16.840.1.196889.3.441 [id number] 1960 [id number] 2.16.840.1.768321.3.579.2. [id number] 2.16.840.1.692913.3.5[id number] 2.16840.1.984826.3.5[id number] 2.16.840.1.965712.3.579.2.75212-85-8211Jtlzcbr4077629 2.16.840.1.362144.3.57[id number] 2.16.840.1.367649.3.579.2.04090-51-8018Mwcsyly8379547 2.16.840.1.363874.3.579.2.41034-08-6487Waobytk2618939 2.16.840.1.855359.3.57[id number] 2.16.840.1.590004.3.57[id number] 2.16.840.1.834820.3.57[id number] 2.16.840.1.312310.3.57[id number] 2.16.840.1.815424.3.57[id number] 2.16.840.1.450132.3.57[id number] 2.16.840.1.103728.3.579.2.31943-88-0666Yqcmazq37328701 2.16.840.1.070732.3.57[id number] 2.16.840.1.144081.3.57[id number] 2..840.1.922106.3.57[id number] 2.840.1.083559.3.579.2.90126-34-5076Vnjbfkq77207817 2.16.840.1.147902.3.579.2.4[id number] 2.16.840.1.772766.3.579.[id number] 2.16.840.1.819789.3.57[id number] 2.16.840.1.420782.3.57[id number] 2.16.840.1.739462.3.579.2.09528-21-5980Mbcossw09144466 2.16.840.1.840031.3.57[id number] 2.16.840.1.118692.3.57[id number] 2.16.840.1.465724.3.579.2.34070-78-4550Ewoyyzd85038272 2.16.840.1.355297.3.579.2.24348-44-8996Dmdqfie17707785 2.16.840.1.142559.3.579.2.57618-88-2182Wujnczf65434888 2.16.840.1.937752.3.579.2.[id number] 2.16.840.1.391280.3.579.2.44814-94-6778Wqvfgtc14269809 2.16.840.1.849725.3.57[id number] 2.16.840.1.804463.3.579.2.37665-34-0917Nxitjmr99098958 2.16.840.1.251581.3.579.2.[id number] 2.16.840.1.688008.3.57[id number] 2.16.840.1.808162.3.579.2.37128-89-8903Gpbxsef63423575 2.16.840.1.801698.3.579.2.86[id number] 2.16.840.1.497819.3.579.[id number] 2.16.840.1.762887.3.57[id number] 2.16.840.1.250260.3.57[id number] 2.16.840.1.522620.3.579.2.69052-64-4558Erysltl06001859 2.16.840.1.315405.3.579.[id number] 2.16.840.1.476886.3.579.2.85433-31-1759Dqgiinn06807277 2.16.840.1.137623.3.579.2.21286-89-5071Umkevwd29979884 2.16.840.1.638540.3.579.[id number] 2.16.840.1.613350.3.579.2.75829-81-9723Sxzjtew36495731 2.16.840.1.231655.3.579.2.81712-38-6893Miqesqg351453400 2.16.840.1.333029.3.579.2.[id number] 2.16.840.1.666901.3.579.2.763795-06-9433Jfbvxfn252230533 2.16.840.1.035251.3.579.2.0[id number] 2.16.840.1.174943.3.579.2.12[id number] 2.16.840.1.776018.3.579.2.427769-54-1864Hjvghdo171244663 2.16.840.1.616562.3.579.2.216593-74-7820Bbcnohb64375353 2.16.840.1.780339.3.579.2.11798-05-4169Aqkilbm06351110 2.16.840.1.434470.3.579.2.35283-15-2863Cheeqfd18218989 2.16.840.1.902482.3.579.2.63191-88-2466Xyzolvo84998222 2.16.840.1.314057.3.579.2.01949-98-7556Iwujmpv60033652 2.16.840.1.406022.3.579.2.01083-10-4627Tfaxpej16694630 2.16.840.1.175049.3.579.2.52780-67-5284Fymdcqq46454849 2.16.840.1.802418.3.579.2.96475-39-5435Gjykeuz86916528 2.840.1.312121.3.579.2.50060-87-7403Izgsnfd37774491 2.840.1.077005.3.579.2.76040-14-8919Erafzpj75321716 2.840.1.040628.3.579.2.70106-04-7070Eymjakr23585288 2.840.1.600240.3.579.2.237VoxkzooOHR134733988 58pbv3hc-7036-6rb7-qb21-s8323iy0m03jShidwud60186878 2.16.840.1.538694.3.579.2.713Zwgkpef55282838 2.16.840.1.274730.3.579.2.531 Bacpqpd25893781 2.16.840.1.461233.3.579.2.752Croepys42775739 2.16.840.1.017888.3.579.2.768Zoleean57916661 2.16.840.1.771312.3.579.2.531 Pgjnuag84957469 2..840.1.993845.3.579.2.117Rtxnbhg14986540 2.16.840.1.703016.3.579.2.531 Social History DateTypeDetailFacilityStart: 04-15-2017 End: 78-37-4645Hm alcohol useNo alcohol usePromedica Flower HospitalComment on above: Coffee 3 cups daily;6 ciggs daily;Start: End: 20-68-1227FeovllHnpfbqvae [place] [facility] Start: 04-15-2017 End: 06-70-1571Tlokhxk smoking status NHISSmokes tobacco dailyPromedica Flower Hospital Start: 43-38-2625Wpizpiw of tobacco useCigarette SmokerOhioHealth Grant Medical Centertart: 04-15-2017 End: 35-71-3158Nuswavi use and exposureSmokeless tobacco non-userOhioHealth Grant Medical Centertart: 05-29-2020 End: 89-29-1254Snwwvbh intakeCurrent non-drinker of alcohol (finding)[facility] Centertart: 05-04-2020 End: 55-96-1925Ehmabry SDOH Shiltlcpw6Odvgcrygq ClinicStart: 05-04-2020 End: 63-60-0692Dcocksu SDOH Food Zcjgv2Zmtuzfoiz ClinicStart: 05-04-2020 End: 95-75-9151Jewqibc SDOH Transport Pif5Kudbeednf ClinicStart: 06-21-2020 Tobacco Commentcurrently 8 cigarettes a dayOhioHealth Grant Medical Centertart: 59-35-8412Awf Assigned At BirthNot on fileTower ClinicStart: 05-22-2020 End: 23-00-1926Dqiejkji to SARS-CoV-2 (event)Not sureTower ClinicStart: 99-84-9451Crjyljg intakeLifetime non-drinker (finding)[employer] Work Phone: start: 05-12-2019 End: 13-45-4836Vlw Assigned At BirthEast [facility] Regional Hospitaltart: 01-16-2023 End: 90-11-8241Fjrxogd smoking statusEx-smoker (finding)[facility]Tojuliajohn smoking statusNeverExecutive [facility]woodsHow hard is it for you to pay for the very basics like food, housing, medical care, and heatingNot very hardPromedica Flower Hospital(I/We) worried whether (my/our) food would run out before (I/we) got money to buy more.Never trueOhioHealth Grant Medical Centertart: 58-95-7405Wptjzvm Commentcurrently 1/2 pack day since 01/2020Ohio[facility] Centertart: 05-05-2020 End: 11-29-7013Jmrtflhc to SARS-CoV-2 (event)Unable to assessPromedica Flower Hospital Start: 91-88-8968Pbz [facility]igned At [facility] History of tobacco useCurrent smokerProMedica Flower Hospital SystemStart: 08-23-2024 End: 43-88-6916Anfmoirlw beverage intakeEx-drinker (finding)[facility] centrose SystemStart: 02-03-2021 End: 01-10-7115Uoydazd Comment8 cigs per dayProMedica Flower Hospital SystemStart: 01-30-2010 End: 73-09-7503GwoHbnh (finding)[facility] SystemT[facility] smoking status NHISTobacco smoking consumption unknownNOMS HealthcareSexual Orientation [facility] Medical Equipment Procedure CodeEquipment CodeEquipment Original TextEquipment IdentifierDates Restrictor 24mm Medium Ray Cement Revision Plug Hip - [id number]_impStart: 40-00-3202Zhgrag Simplex P Tobramycin Bone Full Dose Radiopaque Preblend Sterile - [id number]_oiqAfaro: 40-20-2846Sjciquvhys 30mm Large Ray Cement Revision Plug Hip - [id number]_bgcOcnwg: 24-36-9858Yxnipc Simplex P Speedset Bone Radiopaque Sterile - [id number]_impStart: 64-63-3293Vnh-Of-A-Kind Implant - [id number]_mevFxbsv: 41-48-3795Jqgpbrm on above:Description: NEVRO JAZLYN. N300 LEAD ANCHOR KITHead Global Unite 52mm Standard 18mm Humeral - [id number]_impStart: 10-19-8537Pvsth Hide And Skin Processing Worker [id number]_zukPacan: 03-16-2018 Head V40 28mm -2.7mm Offset Taper Biolox Delta Femoral Hip - [id number]_impStart: 27-86-1786Qvwng 46mm F Cocr Acetabular Modular Dual Mobility Primary Hip - [id number]_jawEggiv: 69-70-3484Kjkixw Adm Mobile Bearing Hip Moravian 52mm 28mm 0d X3 8.9mm Acetabular - [id number]_obqZvbyb: 93-04-8238Tsckrd Adm Mobile Bearing Hip Moravian 52mm 28mm 0d X3 8.9mm Acetabular - [id number]_cnjTpeca: 97-70-8794Jzzs V40 28mm +4mm Offset Taper Biolox Delta Femoral Hip - [id number]_wyzVbzne: 40-71-2311Fxlrl 46mm F Cocr Acetabular Modular Dual Mobility Primary Hip - [id number]_yrc Start: 05-57-6250Iqmf Triathlon 12mm Cocr 100mm Femoral Cemented Total Stabilized Knee - [id number]_dnoXumun: 13-35-3805Dwsp Triathlon 15mm Cocr 50mm Femoral Cemented Total Stabilize Knee - [id number]_cbbBdxzv: 75-41-8589Hmkrgrlda Triathlon 7 Cocr Femoral Total Stabilize Knee Left - [id number]_ehuAvaxg: 50-85-2912Piogpmk Triathlon 7 5mm Femoral Total Stabilize Knee Posterior - [id number]_vasZamtn: 09-45-7982Sqbmaex Triathlon 7 5mm Femoral Total Stabilize Knee Left - [id number]_ryvLqfxv: 40-67-5942Vqjnhre Triathlon 7 5mm Femoral Total Stabilize Knee Left - [id number] 1306269_impStart: 52-92-4512Shllarv Triathlon 6 10mm Tibial Total Stabilize Right Medial Left Lateral - [id number]_ueeSdbzm: 33-98-2594Gxpxwulft Triathlon 6 Ray Cocr Tibial Total Stabilize Cemented Knee - [id number] 1306273_impStart: 86-68-4894Pyjyila Triathlon 6 10mm Tibial Total Stabilize Left Medial Right Lateral - [id number]_bpsKxncf: 35-17-9344Acuiqi Triathlon 6 X3 16mm Tibial Total Stabilize Plus Knee - [id number]_xxbRtvph: 70-01-9524Tjpftgcpm Triathlon 7 Pa Femoral Cruciate Retain Bead Knee Right - [id number]_sdxGbmek: 75-51-5947Poebkb Triathlon 6 X3 13mm Tibial Condylar Stabilized Knee - [id number]_ahqVenin: 86-32-9571Zjqyvojjc Triathlon 6 Tritanium 13p92bl Tibial 4 Cruciform Peg Keel Knee - [id number]_vhvXyxvi: 01-52-6247Ymjqmfgfn Tritanium 35mm Metal 10mm Patellar Asymmetric Knee - [id number]_dzjUdmdk: 66-60-9020Egsyeoizs Triathlon 35mm 10mm Patellar Asymmetric Knee - [id number]_uqmXvngg: 26-28-1578Bpzj 48mm 7mm Humeral [place] Peg Left Glenoid - [id number]_unxEylyx: 13-10-3183Wbih Global Ap 12mm Porocoat 137mm Humeral Arthroplasty System Shoulder - [id number]_cqv Start: 75-89-6170Pwtdarfe Global Ap 135d Taper Fix Shoulder Arthroplasty System - [id number]_fxxYitqf: 85-91-4305Uwjpaaq Triath Tib Cone Sz A - [id number]_rbjSnuxm: 34-78-3840Hylm Accolade Ii 7 127d Femoral - [id number]_wefPmfoh: 55-11-8176Shqpm Trident Ii 56mm F Tritanium Acetabular 5 Screw Hole Cluster Sterile - [id number]_cmqCnjla: 11-08-2019 Stem Accolade Ii 7 127d Femoral - [id number]_kvhLqqev: 90-99-3486Tbwik Trident Ii 56mm F Tritanium Acetabular 5 Screw Hole Cluster Sterile - [id number] 2019353_impStart: 82-24-3725Ujki 50cm Nevro - [id number]_ettFpcpp: 79-60-7855Thkfaow on above:Description: 50Lead 50cm Nevro - [id number] 1140920_impStart: 02-95-2931Ouzcrxd on above:Description: NEVRO BLUE PERC LEAD KITLead 50cm Nevro - [id number]_hakPybqx: 73-29-3559Nasioht on above: Description: NEVRO BLUE PERC LEAD KITGnrtr Nrstm Ipg Kit Nevro - [id number] 1140924_impStart: 25-60-6320Snnhghl on above:Description: NEVRO NIPG KITScrew Spinal Streamline 7.5x55mm - [id number]_pvmRusbf: 58-48-8508Lxr Scr Spnl Ti Streamline - [id number]_esvBajhy: 59-82-3719Xleax Spnl L45mm Dia7.5mm Thorlum Ti Ally Polyax Streamline - [id number]_nttBinvc: 10-15-8034Dfzcc Spnl L50mm Dia7.5mm Thorlum Ti Ally Polyax Streamline - [id number]_ebn Start: 30-17-9230Jfx Spnl L120mm Lhp35ds Thorlum Prebent Streamline - [id number] 1018892_impStart: 10-38-6357Xla Spnl L100mm Idm61xl Thorlum Prebent Streamline - [id number]_bpcFnypm: 46-97-5831Ffldfdh With Needle (Bd Slip Tip Syringe) 1 mL 26 gauge x 5/8 syringeStart: 78-88-0223Agsrwjb With Needle (Bd Slip Tip Syringe) 1 mL 26 gauge x 5/8 syringeStart: 61-61-1853Uktoywr With Needle (Bd Slip Tip Syringe) 1 mL 26 gauge x 5/8 syringeStart: 28-16-6412Mxqolri With Needle (Bd Slip Tip Syringe) 1 mL 26 gauge x 5/8 syringeStart: 01-06-2024 Syringe With Needle (Bd Slip Tip Syringe) 1 mL 26 gauge x 5/8 syringeStart: 23-35-5643Xruwnwz With Needle (Bd Slip Tip Syringe) 1 mL 26 gauge x 5/8 syringe Start: 81-08-9096Xqslqdj With Needle (Bd Slip Tip Syringe) 1 mL 26 gauge x 5/8 syringeStart: 07-32-1399Zxnysgv With Needle (Bd Slip Tip Syringe) 1 mL 26 gauge x 5/8 syringeStart: 84-58-8228Szlftow With Needle (Bd Slip Tip Syringe) 1 mL 26 gauge x 5/8 syringeStart: 01-06-2024 End: 04-05-2025 Goals DatePatient GoalDesired Activity/StatePersonal health goalComment on above: Evaluation of progress towards goal: Plan to return home with supportive , after short acute inpatient rehabilitation, for post acute care.Personal health goalComment on above: Evaluation of progress towards goal: Participating in care and rehab Functional Status ExmxQwlmklzhzhUkzjqcPhguljjg76-77-2765Pzlsbqmyqa StatusN/AExec[facility]05-28-2024Functional StatusN/A[facility]06-02-2023Functional StatusN/A [facility]05-05-2023Functional StatusN/A[facility]04-14-2023 Functional StatusN/A[facility] Clinical Notes 06-07-2012 to 07-26-2025 Note Date & JzvbBnbmJasezdmr53-10-9580 History of Present illness Narrative* Lyn Banks MD - 07/26/2025 10:00 AM EDT Images from the original note were not included. [address] [facility] [address] Patient: Alisia Correa Sr. Date of : 1960 Encounter Date: 07/26/2025 Patient Care Team: Ellen Crabtree DO as [...] 14 2 PTSD: No data to display [place]: No data to display TONIA-10: No data to display Past Medical, Family, Surgical, and Social History Update: The following portions of the patient's history were reviewed and updated as appropriate: allergies, current medications, past family history, past medical history, past social history, past surgicalhistory and problem list. Past Medical History: Diagnosis Date Diabetes mellitus ([facility]) Diabetes mellitus type 2, controlled ([facility]) HL (hearing loss) Hypertension Intra-abdominal bleeding Kidney stones Migraine Parkinson's disease ([facility]) Spinal stenosis History reviewed. No pertinent family [...] DOSE. TAKE ALONG WITH SINEMET CR. 180 mvouay81 diclofenac (VOLTAREN) 75 mg EC tablet Take [...] about joint pain/arthritic treatment Follow-up: 3 months LYN BANKS MD This note was created with the assistance of a speech recognition program. While intending to generate a timely document that accurately reflects the content of the visit, no guarantee can be provided that every grammatical or spelling mistake has been or will be identified or corrected. Thank you for your understanding. documented in this [facility]10-08-2025 Instructions* Patient Instructions* Lyn Banks MD - 07/26/2025 10:00 AM EDT Complete EKG in 1-2 weeks Start seroquel 25mg half tab nightly for 1 week, then may increase to full tab after that Check with your insurance for what area psychiatrists are covered by your insurance, notify Dr. Banks so she can fax the referral to them documented in this encounterMartins Ferry Hospital09-25-2025 Miscellaneous Notes* Telephone Encounter - Julianna Barnes - 07/13/2025 4:08 PM EDT Nurse contacted patient's spouse and informed her that there are refills remaining on prescription. documented in this encounterMartins Ferry Hospital09-25-2025 Telephone encounter Note* Telephone Encounter - Julianna Barnes - 07/13/2025 4:08 PM EDT Nurse contacted patient's spouse and informed her that there are refills remaining on prescription. [facility]09-[facility]-[address] [facility]20[facility] Evaluation note* Diagnosis Onset Date Resolution Status Admit Date Autonomic dysfunction acuteSeptember 2024 1:44pmChronic pain syndromeacuteSept2024 1:44pmChronic suprapubic catheteracuteSept2024 1:44pmCOPD (chronic obstructive pulmonary disease)acuteSept2024 1:44pmDiabetesacute June 28, 2025 1:44pmDiabetic neuropathy associated with type 2 diabetes mellitusacuteSept2024 1:44pmDMII (diabetes mellitus, type 2)acute June 28, 2025 1:44pmGI bleedacuteSeptember 2024 1:44pm HyperlipidemiaacuteSept2024 1:44pmImpaired mobilityacuteSept2024 1:44pmNeurogenic bladderacuteSept2024 1:44pmNeurogenic bowelacuteSept2024 1:44pmObesityacuteSept2024 1:44pm ParkinsonsacuteSeptember 2024 1:44pmRecurrent UTIacuteSept2024 1:44pm [facility] Work Phone: [phone]) 182-184809-10-2025 NotePhysical Therapy Cancel 06/28/25 1140 General Missed Time Reason Other (Comment) PT 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 Khushbu Garcia, PTAUnMount St. Mary Hospital09-10-2025 NotePt state he would like to save energy for his transfer to another facility this afternoon, pt decline therapy. Check no charge.[facility]09-10-[address] [facility]09-09-[address] [facility] 06-27-2025 NoteNeurology Brief Update note - no further recommendations, will sign off, please have the patient follow up with his outpatient Neurologist in 4-[address] [facility] 06-27-2025 NoteDischarge Planning: Public Records Researcher spoke with Lynette in admission at [facility] and faxed over updated progress notes through [facility] awaiting acceptance and be availability. [facility]09-09-[address] [facility]09-09-[address] [facility]09-08-2025 Note [facility]09-08-[address] [facility]09-08-[address] [facility]09-08-2025 Note [facility]09-08-[address] [facility]09-08-[address] [facility]09-07-2025 Note [facility]09-07-[address] [facility]09-07-[address] [facility]09-06-2025 Note [facility]09-06-2025 NoteDischarge Planning: Plan is to wean the patient off the TPN with anticipated discharge tomorrow or Thursday. Public Records Researcher left a message for [facility] to see if they can accept. Referral was made through [facility] on 06/22/25.[facility]09-06-2025 NoteMain Campus Medical Center09-06-2025 NoteGeneral Surgery requesting pt be weaned from TPN which is currently providing ~75% estimated needs. Tolerating FLD. Recommend decreasing rate 60->30 ml/hr x 2 hr then discontinue. Check BG POC one hour after. Consider advancing to pureed diet.[facility]09-06-2025 NoteMain [facility] Medical Center09-06-2025 NoteMain [facility]09-05-2025 [facility]09-05-2025 NoteMain [facility] Center09-05-2025 NoteMain [facility] Center09-05-2025 NoteMain [facility]09-04-2025 Note [facility]09-04-2025 NoteMain [facility] Center09-04-2025 NoteMain [facility]09-04-2025 Note [facility]09-04-2025 NoteMain [facility]09-03-2025 NoteMain [facility]09-03-2025 Note [facility]09-03-2025 NoteMain [facility] Center09-03-2025 NoteMain [facility] Center09-03-2025 Note [facility]09-03-[address] [facility]09-02-[address] [facility]09-02-2025 Note [facility]09-02-[address] [facility]09-02-[address] [facility]09-02-2025 Note [facility]09-01-2025 NoteMain [facility] Center09-01-2025 NoteMain [facility]09-01-2025 Note [facility]08-31-[address] [facility]08-31-2025 NoteMain [facility] Center08-30-2025 Note [facility]08-30-2025 NoteMain Campus Medical Center08-30-2025 NoteMain Campus Medical Center08-30-2025 Note [facility]08-29-2025 NotePatient left for the OR. I started FFP prior to him leaving.[facility]08-29-2025 NoteMain Campus Medical Center08-28-2025 NoteMain Campus Medical Center08-28-2025 NoteMain Campus Medical Center08-28-2025 Note Peripheral IV Date/Time: 06/15/2025 4:19 PM Inserted by: Leda Pitts MD Placement Needle size: 14 G Laterality: right Location: external jugular Local anesthetic: none Site prep: alcohol Technique: anatomical landmarks Attempts: 1UnMount St. Mary Hospital08-28-2025 NoteMain Campus Medical Center08-25-2025 NoteMain [facility] 06-06-2025 Miscellaneous Notes* Telephone Encounter - Eliane Ken - 06/06/2025 9:37 AM EDT Received referral from Dr. Banks for patient to see Dr. Martin for : Chronic intractable headache, unspecified headache type Please call to schedule -established with new patient time * Telephone Encounter - Sal Frances - 06/06/2025 9:37 AM EDT Patient scheduled: 09/12/25 11:[address] Martin documented in this encounterMartins Ferry Hospital08-19-2025 Telephone encounter Note* Telephone Encounter - Eliane Ken - 06/06/2025 9:37 AM EDT Received referral from Dr. Banks for patient to see Dr. Martin for : Chronic intractable headache, unspecified headache type Please call to schedule -established with new patient time [facility]08-19-2025 Telephone encounter Note* Telephone Encounter - Sal Frances - 06/06/2025 9:37 AM EDT Patient scheduled: 09/12/25 11:[address] Martin [facility]08-18-2025 NoteMain [facility] 04-25-2025 NoteMain [facility] Medical Center06-18-2025 NoteMain Campus Medical Center06-17-2025 Miscellaneous Notes* Telephone Encounter - Julianna Barnes - 04/04/2025 1:42 PM EDT Refill request : traMADoL (ULTRAM) 50 mg tablet Last Filled : 09/30/2024 Last OV : 03/14/2025 Next OV : 04/25/2025 Reviewed by ANDRE. Pend for signature. * Telephone Encounter - Julianna Barnes - 04/04/2025 1:42 PM EDT Public Records Researcher phoned in medication to pharmacy. Patient notified. documented in this encounterMartins Ferry Hospital06-17-2025 Telephone encounter Note* Telephone Encounter - Julianna Barnes - 04/04/2025 1:42 PM EDT Refill request : traMADoL (ULTRAM) 50 mg tablet Last Filled : 09/30/2024 Last OV : 03/14/2025 Next OV : 04/25/2025 Reviewed by DOCUMENTATION CLERK. Pend for signature. [facility]06-17-2025 Telephone encounter Note* Telephone Encounter - Julianna Barnes - 04/04/2025 1:42 PM EDT Public Records Researcher phoned in medication to pharmacy. Patient notified. [facility]05-29-2025 Evaluation + Plan note* Assessment & Plan Note - Heidy Mairn MD - 03/16/2025 11:16 AM EDTAssociated Problem(s): Open wound of left great toe PVR with toe pressure [facility]05-29-2025 Evaluation + Plan note* Assessment & Plan Note - Heidy Marin MD - 03/16/2025 11:16 AM EDTAssociated Problem(s): Encounter for abdominal aortic aneurysm (AAA) screening No abdominal aortic aneurysms on screening duplex ultrasound. [facility]05-29-2025 Miscellaneous Notes* Assessment & Plan Note - Heidy Marin MD - 03/16/2025 11:16 AM EDTAssociated Problem(s): Open wound of left great toe PVR with toe pressure * Assessment & Plan Note - Heidy Marin MD - 03/16/2025 11:16 AM EDT Associated Problem(s): Encounter for abdominal aortic aneurysm (AAA) screening No abdominal aortic aneurysms on screening duplex ultrasound. documented in this encounterMartins Ferry Hospital05-29-2025 History of Present illness Narrative* Heidy [...] DOSE. TAKE ALONG WITH SINEMET CR. 180 ophabd55 diclofenac (VOLTAREN) 75 mg EC tablet Take [...] Past Medical History: Diagnosis Date Diabetes mellitus ([facility]) Diabetes mellitus type 2, controlled ([facility]) HL (hearing loss) Hypertension Kidney stones Migraine Parkinson's disease ([facility]) Spinal stenosis Past Surgical History: Past Surgical [...] Resource Strain: Low Risk (11/25/2022) [facility] Overall Financial Resource Strain (CARDIA) Difficulty of Paying Living Expenses: Not very hard Food Insecurity: No Food Insecurity (03/16/2025) Hunger Screening Food Insecurity - Worry: Never True Food Insecurity - Inability: Never True Transportation Needs: No Transportation Needs (11/25/2022) Received from [facility] PRAPARE - Transportation Lack of Transportation (Medical): No Lack of Transportation (Non-Medical): No Physical Activity: Not on file Stress: Not on file Social Connections: Not on file Interpersonal Safety: Not on file Housing Instability: Low Risk (11/25/2022) Received from [facility] Housing Stability Vital Sign Unable to [...] you for your understanding. documented in this encounterMartins Ferry Hospital05-27-2025 History of Present illness Narrative* Lyn Banks MD - 03/14/2025 3:00 PM EDT Images from the original note were not included. [address] [facility] [address] Patient: Alisia Correa Sr. Date of : [...] 14 2 PTSD: No data to display [place]: No data to display TONIA-10: No data to display Past Medical, Family, Surgical, and Social History Update: The following portions of the patient's history were reviewed and updated as appropriate: allergies, current medications, past family history, past medical history, past social history, past surgicalhistory and problem list. Past Medical History: Diagnosis Date Diabetes mellitus ([facility]) Diabetes mellitus type 2, controlled ([facility]) HL (hearing loss) Hypertension Kidney stones Migraine Parkinson's disease ([facility]) Spinal stenosis No family history on file. [...] DOSE. TAKE ALONG WITH SINEMET CR. 180 khuzgg18 diclofenac (VOLTAREN) 75 mg EC tablet Take [...] procedures Referring and communicating with other health director of managed care (not separately reported) Documenting clinical information [...] you for your understanding. documented in this encounterTriHealth Bethesda Butler HospitalKeona Health [id number] Instructions* Patient Instructions* Lyn Banks MD - 03/14/2025 3:00 PM EDT Wear thigh high compression socks 20mmHg during the day, remove for bed time. Swallow study. Call to schedule appointment with Dr. Espinoza at [facility] (dysautonomia specialist). Magnesium citrate solution- drink [...] and 6pm. CT head documented in this encounterMartins Ferry Hospital04-30-2025 Radiology Diagnostic study [facility]SUM[facility] Main [place] [address] [place] [address] CT Scan Report Signed Patient: Alisia Correa SR MR#: [id number] : 1960 Acct:[id number] Age/Sex: 64 / M ADM Date: 5 Loc: CT Room: Type: [facility] Attending Dr: Romel Leonardo MD Copies to: [...] Jr., D.O. 02/15/2025 3:42 PM Dictation Location: [facility] Transcribed By: [facility] 02/15/25 154 Dictated By: Steven Shah Jr, DO 02/15/25 1538 Signed By: 02/15/25 1542 [facility]03-13-2025 Evaluation note* Diagnosis Onset Date Resolution Status Admit Date Depression acuteMarch 2024 1:14pmDiabetesacuteMarch 2024 1:14pmMigraineacute December 29, 2024 1:14pmParkinsonsacuteMarch 2024 1:14pmSleep apneaacute December 29, 2024 1:14pmSuprapubic catheteracuteMarch 2024 1:14pmChronic suprapubic catheteracuteApril 2024 1:55pmParkinsonsacuteApril 2024 1:55pmRecurrent UTIacuteApril 2024 1:55pm [facility] Work Phone: [phone]) 666-406203-11-2025 NotePatient Education Obstetrics and Gynecology Urinary Tract [...] this condition includes: ??? Antibiotic medicine. ??? Zglt-qrz-jzceibj medicines to treat discomfort. ??? Drinking enough [...] these instructions at home: Medicines ??? Take hrpd-xqv-ecqrlys and prescription medicines only as told by [...] Make sure you di (more content not included)...[facility]02-10-2025 Hospital Discharge instructions Patient Education 11/28/2024 [...] provider. Document Revised: 05/05/2023 Document Reviewed: 05/05/2023 [employer] Patient Education 2023 Denty's. Follow Up Care 11/25/2024 08:07:08 With:RODRI KHAN, LYN Crum, URL Address: [address] [place] [address] When:Within 1 Month(s) [facility] 02-10-2025 NotePatient Education Caregiving Antibiotic Medicine, Adult [...] ??? You have sig (more content not included)...[facility] 11-23-2024 Miscellaneous Notes* Telephone Encounter - Susie Andino RN - 11/23/2024 2:04 PM EST Contacted pt because last script was sent to pharmacy with 11 refills. Pt stated that the pharmacy didn't have any refills left. Contacted pharmacy and they stated that they did have refills left andwill fill the medication for pt. documented in this encounterMartins Ferry Hospital02-05-2025 Telephone encounter Note* Telephone Encounter - Susie Andino RN - 11/23/2024 2:04 PM EST Contacted pt because last script was sent to pharmacy with 11 refills. Pt stated that the pharmacy didn't have any refills left. Contacted pharmacy and they stated that they did have refills left andwill fill the medication for pt. [facility] [id number] Miscellaneous Notes* Telephone Encounter - Julianna Barnes - 11/19/2024 3:03 PM EST Refill request : carbidopa-levodopa (SINEMET CR) 25-100 mg per CR tablet Last Filled : 08/31/2024 240 tablets +11 refills Refill too soon. Refills remaining at the pharmacy. documented in this encounterTriHealth Bethes[facility] HospitalParcel [facility] [id number] Telephone encounter Note* Telephone Encounter - Julianna Barnes - 11/19/2024 3:03 PM EST Refill request : carbidopa-levodopa (SINEMET CR) 25-100 mg per CR tablet Last Filled : 08/31/2024 240 tablets +11 refills Refill too soon. Refills remaining at the pharmacy. [facility] HospitalBig [id number] Miscellaneous Notes* Telephone Encounter - Susie Andino RN - 10/24/2024 2:28 PM EST Verified with pharmacy that they received the midodrine script. Pharmacy is working on filling the medication. documented in this encounterMartins Ferry Hospital01-06-2025 Telephone encounter Note* Telephone Encounter - Susie Andino RN - 10/24/2024 2:28 PM EST Verified with pharmacy that they received the midodrine script. Pharmacy is working on filling the medication. [facility]12-10-[facility] Hospital Discharge instructions Patient Education 09/27/2024 [...] provider. Document Revised: 12/25/2021 Document Reviewed: 09/20/2021 [employer] Patient Education 2021 Denty's. Follow Up Care 08/30/2024 12:29:01 With:RODRI KHAN, LYN Crum, URL Address: [address] [address] When:Within 1 Month(s) [facility] 12-10-2024 NotePatient Education Urology Indwelling Urinary Catheter [...] provider. Document Revised: 12/25/2021 Document Reviewed: 09/20/2021 [employer] Patient Education ? 2021 [employer] 09-26-2024 Miscellaneous Notes* Telephone Encounter - Susie Andino RN - 09/26/2024 2:18 PM EST medication: midodrine (PROAMATINE) 5 mg tablet Last filled: 12/11/23 Last seen: 08/23/24 Next visit: Not scheduled Reviewed by RN. Pended for signature. According to office note from 08/23/24 Midodrine (Patient not taking: Reported on 08/23/2024) Please advise. documented in this encounterMartins Ferry Hospital12-09-2024 Telephone encounter Note* Telephone Encounter - Susie Andino RN - 09/26/2024 2:18 PM EST medication: midodrine (PROAMATINE) 5 mg tablet Last filled: 12/11/23 Last seen: 08/23/24 Next visit: Not scheduled Reviewed by RN. Pended for signature. According to office note from 08/23/24 Midodrine (Patient not taking: Reported on 08/23/2024) Please advise. [facility]12-08-2024 Miscellaneous Notes* Telephone Encounter - Susie Andino RN - 09/25/2024 4:07 PM EST medication: sumatriptan (IMITREX) 50 mg tablet Last filled: 05/25/24 Last seen: 08/23/24 Next visit: not scheduled Reviewed by RN. Pended for signature. documented in this encounterMartins Ferry Hospital12-08-2024 Miscellaneous Notes* Telephone Encounter - Susie Andino RN - 09/25/2024 4:07 PM EST medication: tramadol 50 mg tablet Last filled: 08/03/24 Last seen: 08/23/24 Next visit: not scheduled Reviewed by RN. Pended for signature. documented in this encounterMartins Ferry Hospital12-08-2024 Telephone encounter Note* Telephone Encounter - Susie Andino RN - 09/25/2024 4:07 PM EST medication: sumatriptan (IMITREX) 50 mg tablet Last filled: 05/25/24 Last seen: 08/23/24 Next visit: not scheduled Reviewed by RN. Pended for signature. [facility]12-08-2024 Telephone encounter Note* Telephone Encounter - uSsie Andino RN - 09/25/2024 4:07 PM EST medication: tramadol 50 mg tablet Last filled: 08/03/24 Last seen: 08/23/24 Next visit: not scheduled Reviewed by RN. Pended for signature. [facility]11-11-2024 Miscellaneous Notes* Telephone Encounter - Susie Andino RN - 08/29/2024 3:42 PM EST medication: Carbidopa-levodopa (SINEMET CR) 25-100 mg per CR tablet Last filled: 08/07/23 Last seen: 08/23/24 Next visit: 09/06/24 Reviewed by RN. Pended for signature. documented in this encounterMartins Ferry Hospital11-11-2024 Telephone encounter Note* Telephone Encounter - Susie Andino RN - 08/29/2024 3:42 PM EST medication: Carbidopa-levodopa (SINEMET CR) 25-100 mg per CR tablet Last filled: 08/07/23 Last seen: 08/23/24 Next visit: 09/06/24 Reviewed by RN. Pended for signature. [facility]11-05-2024 History of Present illness Narrative* Wilber Tipton MD - 08/23/2024 11:30 AM EST Images from the original note were not included. [address] [facility] [id number] Patient: Alisia Correa . Date of : 1960 Encounter Date: 08/23/2024 [...] 14 2 PTSD: No data to display [place]: No data to display TONIA-10: No data to display Past Medical, Family, Surgical, and Social History Update: The following portions of the patient's history were reviewed and updated as appropriate: allergies, current medications, past family history, past medical history, past social history, past surgicalhistory and problem list. Past Medical History: Diagnosis Date Diabetes mellitus ([facility]) Diabetes mellitus type 2, controlled ([facility]) HL (hearing loss) Hypertension Kidney stones Migraine Parkinson's disease ([facility]) Spinal stenosis No family history on file. [...] DOSE. TAKE ALONG WITH SINEMET CR. 180 [id number] diclofenac (VOLTAREN) 75 mg EC tablet Take [...] Plan of Care: none documented in this encounterMartins Ferry Hospital10-22-2024 Hospital Discharge instructions Follow Up Care 08/09/2024 15:03:40 With:RODRI KHAN LYN Skyla, URL Address: [place] [address] When: Unknown [facility] Lori 10-13-2024 Miscellaneous Notes* Telephone Encounter - Susie [...] for approval and signature documented in this encounterTriHealth Bethes[facility] Butler HospitalKeona Health [id number] Telephone encounter Note* Telephone Encounter - Susie Andino RN - 07/31/2024 1:31 PM EDT Refill request : tramadol 50mg Last Filled : 04/13/24 Last Office Visit :11/16/23 Next Office Visit : 08/23/24 Reviewed by RN. Pend for signature. [facility] [id number] Telephone encounter Note* Telephone Encounter - REGAN Morales - 07/31/2024 1:31 PM EDT Pt is schedule for follow up with Dr Bowden in August. Sending to him for approval and signature [facility] [id number] Miscellaneous Notes* Telephone Encounter - Rachel Mixon CMA - 07/14/2024 1:37 PM EDT Refill request: Med: fludrocortisone (FLORINEF) 0.1 mg tablet Si tabs daily as directed Last seen:11/16/23 With Kathy Cervantes Next visit:08/23/[address] Bowden Last filled: 02/23/23 - day supply with 3 refills to [facility] Pharmacy: [facility] documented in this encounterMartins Ferry Hospital09-26-2024 Telephone encounter Note* Telephone Encounter - Rachel Mixon CMA - 07/14/2024 1:37 PM EDT Refill request: Med: fludrocortisone (FLORINEF) 0.1 mg tablet Si tabs daily as directed Last seen:11/16/23 With Kathy Cervantes Next visit:08/23/[address] Bowden Last filled: 02/23/23 - day supply with 3 refills to [facility] Pharmacy: [facility]08-06-2024 Miscellaneous Notes* Telephone Encounter - Julianna Barnes - 05/24/2024 4:47 PM EDT Refill request : SUMAtriptan (IMITREX) 50 mg tablet Last Filled : 02/23/2024 Last OV : 11/16/2023 Next OV : 08/23/2024 Reviewed by ANDRE. Pend for signature. documented in this encounterMartins Ferry Hospital08-06-2024 Telephone encounter Note* Telephone Encounter - Julianna Barnes - 05/24/2024 4:47 PM EDT Refill request : SUMAtriptan (IMITREX) 50 mg tablet Last Filled : 02/23/2024 Last OV : 11/16/2023 Next OV : 08/23/2024 Reviewed by DOCUMENTATION CLERK. Pend for signature. [facility]06-24-2024 Miscellaneous Notes* Telephone Encounter - Julianna Barnes - 04/11/2024 11:33 AM EDT Refill request : tramadol (Ultram) 50 mg tablet Last Filled : 11/16/2023 Last OV : 11/16/2023 Next OV : None mentioned in last OV note. The OARRS database was reviewed today and found to be appropriate. No indication of medication diversion, or non compliance. Reviewed by DOCUMENTATION CLERK. Pend for signature. * Telephone Encounter - Rosa Neil - 04/11/2024 11:33 AM EDT Patient is scheduled for the following appointment: With Neurology (Samira Bowden MD) 08/23/2024 at 11:30 AM documented in this encounterMartins Ferry Hospital06-24-2024 Telephone encounter Note* Telephone Encounter - Julianna Barnes - 04/11/2024 11:33 AM EDT Refill request : tramadol (Ultram) 50 mg tablet Last Filled : 11/16/2023 Last OV : 11/16/2023 Next OV : None mentioned in last OV note. The OARRS database was reviewed today and found to be appropriate. No indication of medication diversion, or non compliance. Reviewed by DOCUMENTATION CLERK. Pend for signature. [facility]06-24-2024 Telephone encounter Note* Telephone Encounter - Rosa Neil - 04/11/2024 11:33 AM EDT Patient is scheduled for the following appointment: With Neurology (Samira Bowden MD) 08/23/2024 at 11:30 AM [facility]06-10-2024 Miscellaneous Notes* Telephone Encounter - Rachel Mixon CMA - 03/28/2024 3:59 PM EDT Received PT progress note from [facility] dated 03/24/24. Placed in provider's folder for signature. Public Records Researcher will return fax upon completion. documented in this encounterMartins Ferry Hospital06-10-2024 Telephone encounter Note* Telephone Encounter - Rachel Mixon CMA - 03/28/2024 3:59 PM EDT Received PT progress note from [facility] dated 03/24/24. Placed in provider's folder for signature. Public Records Researcher will return fax upon completion. 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 To: ELLEN CRABTREE, DO HPI: Alisia Correa Alejandro is a 63 y.o. male with ex-smoker [...] DOSE. TAKE ALONG WITH SINEMET CR. 180 [id number] diclofenac (VOLTAREN) 75 mg EC tablet Take [...] Past Medical History: Diagnosis Date Diabetes mellitus ([facility]) Diabetes mellitus type 2, controlled ([facility]) HL (hearing loss) Hypertension Kidney stones Migraine Parkinson's disease ([facility]) Spinal stenosis Past Surgical History: Past Surgical [...] Resource Strain: Low Risk (11/25/2022) [facility] Overall Financial Resource Strain (CARDIA) Difficulty of Paying Living Expenses: Not very hard Food Insecurity: No Food Insecurity (01/28/2024) Hunger Screening Food Insecurity - Worry: Never True Food Insecurity - Inability: Never True Transportation Needs: No Transportation Needs (11/25/2022) Received from [facility], [facility] PRAPARE - Transportation Lack of Transportation (Medical): No Lack of Transportation (Non-Medical): No Physical Activity: Not on file Stress: Not on file Social Connections: Not on file Interpersonal Safety: Not on file Housing Instability: Low Risk (11/25/2022) Received from [facility], [facility] Housing Stability Vital Sign Unable to [...] you for your understanding. documented in this encounterMartins Ferry Hospital05-28-2024 Hospital Discharge instructions Patient Education 03/15/2024 [...] include: ?8 oz (237 mL) of milk, bpwlerh-diirqdptpuyi-rttxs milk, and calcium- fortifiedfruit juice. Calcium-fortified means [...] ?Spinach (cooked), rhubarb, beets, sweet potatoes, and Latvian chard. ?Peanuts. ?Potato chips, ecuadorean fries, and baked potatoes with skin on. ?Nuts and nut products. ?Chocolate. If you regularly take a diuretic medicine, make sure to eat at least 1 or 2 servings of fruits or vegetables that are high in potassium each day. These include: ?Avocado. ?Banana. ?Antelope, prune, carrot, or tomato juice. ?Baked potato. [...] magnesium, fish oil, or vitamin B6. Take vvsz-ewx-fzxjniu and prescription medicines only as told by [...] Casseroles. Pizza. Lasagna. Frozen meals. Potato chips. Taiwanese fries. The items listed above may not [...] provider. Document Revised: 01/15/2023 Document Reviewed: 01/15/2023 [employer] Patient Education 2022 Denty's. 03/15/2024 13:28:17 Antibiotic Medicine, Adult Antibiotic Medicine, [...] medicine. Follow these instructions at home: Take josq-ipy-prnulci and prescription medicines as told by your [...] provider. Document Revised: 11/19/2020 Document Reviewed: 07/24/2020 [employer] Patient Education 2022 Denty's. 03/15/2024 13:27:57 Kidney Stones, Febe-st-Phdz Kidney Stones Kidney stones are rock-like masses [...] Follow these instructions at home: Medicines Take tlfm-dsg-gazwjwx and prescription medicines only as told by [...] provider. Document Revised: 06/09/2022 Document Reviewed: 06/09/2022 [employer] Patient Education 2022 [employer]enty's. 03/15/2024 13:27:55 Benign Prostatic Hyperplasia Benign Prostatic [...] urethra. Follow these instructions at home: Take lghm-ifh-rgvfngn and prescription medicines only as told by [...] provider. Document Revised: 04/23/2022 Document Reviewed: 04/23/2022 [employer] Patient Education 2022 [employer]enty[employer]. [facility] 05-09-2024 Miscellaneous Notes* Telephone Encounter - Rachel Mixon CMA - 02/25/2024 8:54 AM EDT Received ASSISTANT CHIEF NURSING OFFICER Progress note from [facility] dated 02/25/24. Will have provider review andsign. Will return fax. documented in this encounterMartins Ferry Hospital05-09-2024 Telephone encounter Note* Telephone Encounter - Rachel Mixon CMA - 02/25/2024 8:54 AM EDT Received ASSISTANT CHIEF NURSING OFFICER [facility] Will have provider review andsign. Will return fax. [facility]05-06-2024 Miscellaneous Notes* Telephone Encounter - Julianna Barnes - 02/22/2024 4:55 PM EDT Refill request : SUMAtriptan (IMITREX) 50 mg tablet Last filled : 02/15/2024 Printed not signed by ordering provider Last OV : 11/16/2023 Next OV : None mentioned in last OV note. Reviewed by DOCUMENTATION CLERK. Pend for signature. documented in this encounterMartins Ferry Hospital05-06-2024 Telephone encounter Note* Telephone Encounter - Julianna Barnes - 02/22/2024 4:55 PM EDT Refill request : SUMAtriptan (IMITREX) 50 mg tablet Last filled : 02/15/2024 Printed not signed by ordering provider Last OV : 11/16/2023 Next OV : None mentioned in last OV note. Reviewed by DOCUMENTATION CLERK. Pend for signature. [facility]05-02-2024 Miscellaneous Notes* Telephone Encounter - Rachel Mixon CMA - 02/18/2024 4:03 PM EDT Received ASSISTANT CHIEF NURSING OFFICER Progress note from [facility] dated 02/08/24. Will have provider review and sign. Will return fax. documented in this encounterMartins Ferry Hospital05-02-2024 Telephone encounter Note* Telephone Encounter - Rachel Mixon CMA - 02/18/2024 4:03 PM EDT Received ASSISTANT CHIEF NURSING OFFICER Progress note from [facility] dated 02/08/24. Will have provider review and sign. Will return fax. [facility]04-29-2024 Miscellaneous Notes* Telephone Encounter - Rachel Mixon CMA - 02/15/2024 4:22 PM EDT Received PT Progress Note from [facility]. Note placed in Kathy's folder for review and signature. Will return fax upon completion. documented in this encounterMartins Ferry Hospital04-29-2024 Telephone encounter Note* Telephone Encounter - Rachel Mixon CMA - 02/15/2024 4:22 PM EDT Received PT Progress Note from [facility]. Note placed in Kathy's folder for review and signature. Will return fax upon completion. [facility]04-25-2024 History and physical note Author Bernice Shrestha [facility] February 11, 2024 8:20amNote Date/TimeApril 2023 8:20am[place] [address] Gastroenterology H&P Signed Patient: Alsiia Correa SR MR#: [id number] : 1960 Acct:[id number] Age/Sex: 63 / M Adm Date: 4 Loc: Room: Type: [facility] Attending Dr: Bernice Shrestha DO Copies to: Ellen Crabtree,DO Bernice Shrestha, DO~ Date of Service: 02/11/2024 HISTORY & PHYSICAL: Patient's history with special attention to the cardiovascular, pulmonary systems and the current problem was reviewed with the patient immediately prior to the procedure. Present medications and doses reviewed in the EMR. Allergies and pertinent laboratory tests were also re viewedat this time in the EMR. The physical [...] <Electronically signed by Bernice Shrestha DO> 02/11/24819 [facility] Work Phone: 1(596) 163-717704-25-2024 Procedure noteNorwalk [facility] Hospital04-23-2024 Miscellaneous Notes* Telephone Encounter - Julianna Barnes - 02/09/2024 6:56 PM EDT Refill request : SUMAtriptan (IMITREX) 50 mg tablet Last filled : 09/03/2023 Last OV : 11/16/2023 Next OV : No follow up mentioned in last OV note. Reviewed by Route Deliverer. Pend for signature. documented in this encounterTriHealth Bethes[facility] Butler HospitalTorqeedo04-23-2024 Telephone encounter Note* Telephone Encounter - Julianna Barnes - 02/09/2024 6:56 PM EDT Refill request : SUMAtriptan (IMITREX) 50 mg tablet Last filled : 09/03/2023 Last OV : 11/16/2023 Next OV : No follow up mentioned in last OV note. Reviewed by Route Deliverer. Pend for signature. [facility]04-11-2024 Miscellaneous Notes* Telephone Encounter - Rachel Mixon CMA - 01/28/2024 10:26 AM EDT Received Information for scheduling a Modified Barium Swallow form from the [facility] scheduled for 02/16/24 at 11:00am. Scanned and attached to this encounter and placed in DOCUMENTATION CLERK's folder for completion. Public Records Researcher will fax upon completion. * Telephone Encounter - Julianna Barnes - 01/28/2024 10:26 AM EDT Noted. * Telephone Encounter - Julianna Barnes - 01/28/2024 10:26 AM EDT Documentation completed and placed with MARTI for faxing. documented in this encounterMartins Ferry Hospital04-11-2024 Telephone encounter Note* Telephone Encounter - Rachel Mixon CMA - 01/28/2024 10:26 AM EDT Received Information for scheduling a Modified Barium Swallow form from the [facility] scheduled for 02/16/24 at 11:00am. Scanned and attached to this encounter and placed in DOCUMENTATION CLERK's folder for completion. Public Records Researcher will fax upon completion. [facility]04-11-2024 Telephone encounter Note* Telephone Encounter - Julianna Barnes - 01/28/2024 10:26 AM EDT Noted. [facility]04-11-2024 Telephone encounter Note* Telephone Encounter - Julianna Barnes - 01/28/2024 10:26 AM EDT Documentation completed and placed with [facility] for faxing. [facility]04-11-2024 Evaluation + Plan note* Assessment & Plan Note - Heidy Marin MD - 01/28/2024 9:41 AM EDTAssociated Problem(s): Critical limb ischemia of both lower extremities with gangrene ([facility]-HCC) Bilateral toe wounds nonhealing, no PVR or testing [facility]04-11-2024 Miscellaneous Notes* Assessment & Plan Note [...] smoking AAA duplex US documented in this encounterMartins Ferry Hospital04-11-2024 Evaluation + Plan note* Assessment & Plan Note - Heidy Marin MD - 01/28/2024 9:40 AM EDT Associated Problem(s): Encounter for screening for abdominal aortic aneurysm (AAA) in patient 50 years of age or older with history of smoking AAA duplex US [facility]04-11-2024 History of Present illness Narrative* Heidy [...] DOSE. TAKE ALONG WITH SINEMET CR. 180 [id number] diclofenac (VOLTAREN) 75 mg EC tablet Take [...] Past Medical History: Diagnosis Date Diabetes mellitus ([facility]) Diabetes mellitus type 2, controlled ([facility]) HL (hearing loss) Hypertension Kidney stones Migraine Parkinson's disease ([facility]) Spinal stenosis Past Surgical History: Past Surgical [...] Resource Strain: Low Risk (11/25/2022) Received [facility], [facility] Overall Financial Resource Strain (CARDIA) Difficulty of Paying Living Expenses: Not very hard Food Insecurity: No Food Insecurity (01/28/2024) Hunger Screening Food Insecurity - Worry: Never True Food Insecurity - Inability: Never True Transportation Needs: No Transportation Needs (11/25/2022) Received from [facility] PRAPARE - Transportation Lack of Transportation (Medical): No Lack of Transportation (Non-Medical): No Physical Activity: Not on file Stress: Not on file Social Connections: Not on file Interpersonal Safety: Not on file Housing Instability: Low Risk (11/25/2022) Received from [facility] Housing Stability Vital Sign Unable to Pay [...] you for your understanding. documented in this [facility]03-26-2024 Miscellaneous Notes* Telephone Encounter - Rachel Mixon CMA - 01/12/2024 9:35 AM EDT Received ASSISTANT CHIEF NURSING OFFICER Initial Eval from [facility] dated 01/06/24. Will have Kathy review and sign. Will return fax. documented in this [facility]03-26-2024 Telephone encounter Note* Telephone Encounter - Rachel Mixon CMA - 01/12/2024 9:35 AM EDT Received ASSISTANT CHIEF NURSING OFFICER Initial Eval from [facility] dated 01/06/24. Will have Kathy review and sign. Will return fax. [facility]03-26-2024 Miscellaneous Notes* Telephone Encounter - Rachel Mixon CMA - 01/12/2024 9:[address] request to evaluate and treat from [facility] dated 01/08/24. Will have Mollyreview and sign. Will return fax. documented in [facility] Telephone encounter Note* Telephone Encounter - Rachel Mixon CMA - 01/12/2024 9:[address] request to evaluate and treat from [facility] dated 01/08/24. Will have Mollyreview and sign. Will return fax. [facility]03-22-2024 Miscellaneous Notes* Telephone Encounter - Rachel Mixon CMA - 01/08/2024 8:17 AM EDT Received PT Initial Eval from [facility] dated 01/06/24 . Will have Kathy review and sign. Will return fax. documented in this [facility]Mart[facility] Telephone encounter Note* Telephone Encounter - Rachel Mixon CMA - 01/08/2024 8:17 AM EDT Received PT Initial Eval from [facility] dated 01/06/24 . Will have Kathy review and sign. Will return fax. [facility]02-23-2024 Miscellaneous Notes* Telephone Encounter - Fidelia Lagunas - 12/11/2023 8:55 AM EST Refill Request Medication:midodrine (PROAMATINE) 5 mg tablet Strength: Current dose & Frequency: 30 day or 90 day supply: Pharmacy:[address] Request was made by:Patients daughter. Caller [...] mentioned in last ov note. Reviewed by DOCUMENTATION CLERK Pend for signature. documented in this encounterMartins [facility]erry [facility]02-23-[facility]24 Telephone encounter Note* Telephone Encounter - Fidelia Lagunas - 12/11/2023 8:55 AM EST Refill Request Medication:midodrine (PROAMATINE) 5 mg tablet Strength: Current dose & Frequency: 30 day or 90 day supply: Pharmacy:[address] Request was made by:Patients daughter. Caller states patient Is now out of this medication and the pharmacy needs a new script that reflects the changes that was made at last appointment. Patient now takes a total of 9 pills with the change and that's why patient run our early. Please advise [facility]02-23-2024 Telephone encounter Note* Telephone Encounter - Julianna Barnes - 12/11/2023 8:55 AM EST Refill request : midodrine (PROAMATINE) 5 mg tablet Last filled : 09/02/2023 Last OV : 11/16/2023 Next OV : No follow up mentioned in last ov note. Reviewed by ANDRE Pend for signature. [facility] [id number] Evaluation note* Encounter Date Diagnosis Assessment Notes Treatment Notes Treatment Clinical Notes Oct, Arthritis (ICD-10 - M19.90) Oct,hronic pain syndrome (ICD-10 - G89.4) [employer] Other [id number] Miscellaneous Notes* Telephone Encounter - Rachel Mixon CMA - 11/17/2023 1:56 PM EST Fidelia received call from patient's son stating that patient needs a refill on C/L IR and they didn't realize that it needed filled until they got home from their appointment yesterday 11/16/23. In [place] [facility] [employer], Rx for C/L IR 25-100 mg was written yesterday 11/16/23. 30 day supply with 11 refills. [facility] verify that [facility] had received Rx. qa tech stated they did receive Rx. Called and spoke with patient's Dipti and informed her of Rx. Dipti voiced understanding. Noaction needed. documented in this encounterMartins Ferry Hospital01-30-2024 Telephone encounter Note* Telephone Encounter - Rachel Mixon CMA - 11/17/2023 1:56 PM EST Fidelia received call from patient's son stating that patient needs a refill on C/L IR and they didn't realize that it needed filled until they got home from their appointment yesterday 11/16/23. In [facility], Rx for C/L IR 25-100 mg was written yesterday 11/16/23. 30 day supply with 11 refills. Called [facility] to verify that they had received Rx. qa tech stated they did receive Rx. Called and spoke with patient's Dipti and informed her of Rx. Dipti voiced understanding. Noaction needed. [employer]01-29-2024 History of Present illness Narrative* Ramos Cervantes APRN-STOCK AND STATION AGENT - 11/16/2023 1:00 PM EST Images from the original note were not included. [address] [facility] [id number] Patient: Alisia Correa Sr. Date of : [...] further dose adjustments He was admitted to [facility]: 11/20/22 to 12/06/22 Mr. Correa, You were [...] Past Medical History: Diagnosis Date Diabetes mellitus ([facility]) Diabetes mellitus type 2, controlled ([facility]) HL (hearing loss) Hypertension Kidney stones Migraine [...] DOSE. TAKE ALONG WITH SINEMET CR. 180 [id number] traMADoL (ULTRAM) 50 mg tablet Take 1 [...] MORALES APRN-CNP 12/07/23 0817 documented in this encounterMartins [facility]erry [facility]01-29-2024 Instructions* Patient Instructions* REGAN Morales - [...] some issues with numbness/tingling. documented in this encounterMartins Ferry Hospital01-23-2024 Evaluation note* Encounter Date Diagnosis Assessment [...] to take and finish antibiotics as ordered. Oct,rthritis (ICD-10 - M19.90) Patient does use the diclofenac for the arthritis pain. His renal function is stable. No indicationof any GI bleed. Blood count is stable. I will refill Oct,arkinson disease (ICD-10 - G20) Patient is under the care of neurologist for the Parkinsons disease. He is in a motorized chair today that he uses for mobility. Patient is tolerant of the parkinsons medications ordered. I do recommend he follow the plan of care as outlined by neurologist. Oct,Needs flu shot (ICD-10 - Z23) High dose flu vaccine provided Oct,Neurogenic bladder (ICD-10 - N31.9) Patient has a [...] plan of care as outlined by urologist. Oct,hange in stool (ICD-10 - R19.5) Patient reports that his stools are clear in color and resemble lube . This has been going on now for several months. Stool cultures obtained in August negative along with the CT abdomen/pelvis that was also done. Gallbladder was negative for stones. I do recommend increasing fiber in diet forexample metamucil. I did an extensive review of his medications and I do not see anything evident that would cause this change. At this point, due to his significant medical history, I highly recommend a GI consultation. He is in agreement and referral has been placed. Oct,Nausea (ICD-10 - R11.0) Patient does have episodic nausea and uses the Zofran as needed. I will refill this for him today. He does report spitting up bile at times. I recommend a OTC PPI to assist with the reflux. I am alsoreferring him out to GI for consult. He may need upper and lower endoscopy. I will defer this to gastro for their opinion Oct,Impaired glucose metabolism (ICD-10 - R73.09) In house A1C is stable. No indication of DM at this time. This will be monitored [employer] Other 01-22-2024 Evaluation note* Encounter Date Diagnosis Assessment Notes Treatment Notes Treatment Clinical Notes Oct, Arthritis (ICD-10 - M19.90) [employer] Other 01-22-2024 Miscellaneous Notes* Telephone Encounter - Julianna Barnes - 11/09/2023 10:42 AM EST Refill request: Sinemet IR 25-100 mg tablet and Sinemet ER 25- 100 mg tablet Public Records Researcher phoned patient and patient has refills remaining on both medications at pharmacy. Patient voiced understanding. documented in this encounterWashington [facility] Hospitalrate[facility]-22-2024 Telephone encounter Note* Telephone Encounter - Julianna Barnes - 11/09/2023 10:42 AM EST Refill request: Sinemet IR 25-100 mg tablet and Sinemet ER 25- 100 mg tablet Public Records Researcher phoned patient and patient has refills remaining on both medications at pharmacy. [facility] voiced understanding. [facility]* Encounter Date Diagnosis Assessment Notes Treatment Notes Treatment Clinical Notes Sep, Arthritis (ICD-10 - M19.90) [employer] Other 11-29-2023 Evaluation note* Encounter Date Diagnosis Assessment Notes Treatment Notes Treatment Clinical Notes Aug, Anxiety (ICD-10 - F41.9) Aug,Neuropathy (ICD-10 - G62.9) [employer] Other 11-28-2023 Evaluation note* Encounter Date Diagnosis Assessment Notes Treatment Notes Treatment Clinical Notes Aug, Diabetic nephropathy (ICD-10 - E 11.21) [employer] Other 11-15-2023 Evaluation note* Encounter Date Diagnosis Assessment Notes Treatment Notes Treatment Clinical Notes Aug, Acute diarrhea (ICD-10 - R19.7) Stool studies were ordered for patient and thankfully these were all negative for him. He states that he has mucousy watery stool off and on since his hospital stay. 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 I strongly encouraged him to follow up with urologist as scheduled and would recommend that he discuss recent UTI with Dr. Ibarra. Aug,hronic pain syndrome (ICD-10 - G89.4) Patient continues to use tramadol on occasion. Aug,Iron deficiency anemia (ICD-10 - D50.9) Labs ordered to recheck hemoglobin Aug,iabetic nephropathy (ICD-10 - E11.21) Reviewed patients most recent vascular consult, pt states that his neuropathy is unchanged. Aug,ysfunction of both eustachian tubes (ICD-10 - H69.93) Upon examination he does not have any wax build up. Discussed at length with him that he likely hasa eustacian tube dysfunction causing the tinnitus and pain. Auto insufflation recommended and educated on how to do. Medrol dose pack and flonase provided. Encouraged him to call with an update or ifhe does not feel better. Aug,Hyperlipidemia (ICD-10 - E78.5) Labs ordered Aug,iabetes (ICD-10 - E11.9) Aug,Neck pain (ICD-10 - M54.2) Patient complains of neck pain among other joints. Discussed medrol should help with this as well. [employer] Other 11-07-2023 Evaluation note* Encounter Date Diagnosis Assessment Notes Treatment Notes Treatment Clinical Notes Aug, UTI (urinary tract infection) (I CD-10 - N39.0) Aug,iarrhea (ICD-10 - R19.7) [employer] Other 09-15-2023 Evaluation note* Encounter Date Diagnosis Assessment Notes Treatment Notes Treatment Clinical Notes Jun, Arthritis (ICD-10 - M19.90) [employer] Other 08-08-2023 Evaluation note* Encounter Date Diagnosis Assessment Notes Treatment Notes Treatment Clinical Notes May, Parkinson disease (ICD-10 - G20) May,onstipation (ICD-10 - K59.00) [employer] Other 08-01-2023 Evaluation note* Encounter Date Diagnosis Assessment Notes Treatment Notes Treatment Clinical Notes May, Restless leg syndrome (ICD-10 - G25.81) May,nxiety (ICD-10 - F41.9) May,arkinson disease (ICD-10 - G20) Continue following with Dr. Bowden and treatment plan May,utonomic dysfunction (ICD-10 - G90.9) Continue with medications as prescribed. Again his florinef was increased. May,Orthostatic hypotension (ICD-10 - I95.1) Blood pressure is very low today. He is slightly symptomatic, states that he has had a busy day with his and is exhausted and due for a rest . I encouraged him to do so and continue with medsas prescribed as it appears his blood pressure has been generally better. May,iabetic nephropathy (ICD-10 - E11.21) Continue with lyrica, requip and pain medication. May,History of COVID-19 (ICD-10 - Z86.16) Patient doing well considering his recent history of covid pneumonia/sepsis and significant deconditioning related to immobility. He gained encough strength back during his rehabilitation that he is now able to toilet himself and get in and out of bed/chairs. May,Failed back syndrome (ICD-10 - M96.1) Patient has been recieving pain medicaton through hospice and during his hospitalization. He voicesa lot of increased but chronic joint pain, [...] a refill. OAR[facility] report ran and reviewed. May,Neurogenic bladder (ICD-10 - N31.9) Encouraged patient to follow up with Dr. Ibarra as schedued. May,Neurogenic bowel (ICD-10 - K59.2) Patient encouraged to continue with his toilet schedule. Discussed my concerns with narcotic induced constipation and he verbalized understanding. [employer] Other 07-10-2023 Evaluation note* Encounter Date Diagnosis Assessment Notes Treatment Notes Treatment Clinical Notes Apr, Hypotestosteronism (ICD-10 - E34 .9) [employer] Other 06-02-2023 Hospital Discharge instructions Patient Education [...] and water are not available, use hand rotary kiln operator. 3.Draw up sterile water into a [...] and water are not available, use hand rotary kiln operator. 2.Disconnect the bag from the catheter [...] of the following methods: According to the stylist apprentice's instructions. As told by your health care provider. 7.Let the bag dry completely. Put it in a clean plastic bag before storing it. General tips Always wash your hands before and after caring for your catheter and collection bag. Use a mild, fragrance-free soap. If soap and water are not available, use hand rotary kiln operator. Clean the outside of the catheter [...] if you may take showers. Contact a hpillip care provider if: You leak urine. You [...] Document Reviewed: 11/09/2019 Elsevier Patient Education 2022 [employer] Follow Up Care 02/20/2023 10:24:17 With:WALTER YBARRA, Fidel Dawson, URL Address: [facility] [address] , [place] [address]- When: Unknown [facility] Discharge instructions Patient Education 02/20/2023 [...] Follow these instructions at home: Medicines Take yeid-drt-hvexkrm and prescription medicines only as told by [...] provider. Document Revised: 06/26/2021 Document Reviewed: 06/26/2021 [employer] Patient Education 2022 [employer] Follow Up Care 01/16/2023 11:27:11 With:WALTER YBARRA, Fidel Dawson, URL Address: [address] [place] [address]- When: Unknown [facility] 04-14-2023 Hospital Discharge instructions Patient Education 01/30/2023 [...] urethra. Follow these instructions at home: Take ierb-ius-kkvlohq and prescription medicines only as told by [...] 10/05/2006 Document Revised: 08/30/2019 Document Reviewed: 11/09/2017 [employer] Patient Education 2020 [employer] 01/30/2023 07:57:19 Indwelling Urinary Catheter Care, Adult, Gosi-rx-Lwnr Indwelling Urinary Catheter Care, Adult An indwelling [...] not have soap and water, use hand rotary kiln operator. Always make sure there are no [...] 01/30/2014 Document Revised: 01/27/2020 Document Reviewed: 05/21/2018 [employer] Patient Education 2020 [employer]. 01/30/2023 07:56:45 Benign Prostatic Hyperplasia Benign Prostatic [...] urethra. Follow these instructions at home: Take kmqh-isp-jzjjwft and prescription medicines only as told by [...] 10/05/2006 Document Revised: 08/30/2019 Document Reviewed: 11/09/2017 [employer] Patient Education 2020 [employer] Follow Up Care 01/27/2023 14:28:53 With:WALTER YBARRA, Fidel Dawson, URL Address: [facility] [address], [place] [address]- [phone] When:Within 3 Week(s) Comments:3 weeks for SP tube change [facility] 04-06-2023 NoteOP Note OPERATION DATE: 01/22/2023 PREOPERATIVE [...] the flexible scope and then passed a 26-Taiwanese resectoscope sheath into the bladder, and then I used the Xspand evacuator and was able to extract all [...] of the incision. I then grasped a 24-Taiwanese two way Carrington catheter in the jaws [...] bag. He was then transferred to a gureast [place] bed and wheeled to recovery room after sterile dressing was placed over the incision. He will be discharged to home later today. He will continue his daily Augmentin. Follow up will be in four weeks to change his SP tube in the office.[facility] [id number] NoteEXAMINATION: XR CHEST 2 V, 01/20/2023 11:23 [...] authenticated by: SHARRON BENITEZ Date: 2023-01-20 12:49[facility]03-29-2023 Evaluation note* Encounter Date Diagnosis Assessment Notes Treatment Notes Treatment Clinical Notes Dec, Neuropathy (ICD-10 - G62.9) [employer] Other [id number] NoteHNO ID: [id number] Author: Say Reyes APRN.NATHEN Service: ? Author Type: Nurse Practitioner Type: Progress Notes Filed: 12/24/2022 5:59 PM Note Text: The patient did not show up for this appointment.[facility] [id number] History of Present illness Narrative* Say Reyes APRN.CNP - 12/24/2022 11:30 AM EST The patient did not show up for this appointment. documented in this encounterProm[facility]02-18[facility]20[facility]02-18-2023 Miscellaneous Notes * Telephone Encounter - Zelda Saenz RN - 12/06/2022 1:15 PM EST [facility] pharmacist, Macrina, requests to clarify pt.'s proamatine [...] from CC later today. documented in this encounterPromedica Flower [facility]02-17-2023 [facility]02[facility]16-[facility]02-15-2023 [facility]Bl[facility]02-15-2023 Note [facility]02-15-2023 [facility]Bl[facility]02-14-2023 [facility]Bl[facility]02-13-2023 [facility]Bl[facility] 12-01-2022 [facility]Bl[facility]02-13-2023 [facility]Bl[facility]02-12-2023 [facility]Bl[facility]02-11-2023 [facility]Bl[facility]02-11-2023 [facility]Bl[facility]02-10-2023 Note [facility]02-09-2023 [facility]Bl[facility]02-08-2023 NoteO ID: [id number] Author: Antonia Villa RN Service: ? Author Type: Registered Nurse Type: Nursing Progress Note Filed: 11/26/2022 10:03 AM Note Text: Transfer Note: Patient transferred in stable condition. Actions taken: Report given/called to G61 RN.[facility]02-08-2023 [facility]Bl[facility]02-08-2023 [facility]Bl[facility]02-07-2023 [facility]Bl[facility]02-06-2023 [facility]Bl[facility]02-05-2023 Note [facility]02-04-2023 [facility]Bl[facility]02-03-2023 [facility]Bl[facility]02-03-2023 [facility]Bl[facility] 11-20-2022 [facility]Bl[facility]02-02-2023 [facility]Bl[facility]01-30-2023 Evaluation note* Encounter Date Diagnosis Assessment Notes Treatment Notes Treatment Clinical Notes Oct, Orthostatic hypotension (ICD-10 - I95.1) [employer] Other 01-24-2023 Evaluation note* Encounter Date Diagnosis Assessment Notes Treatment Notes Treatment Clinical Notes Oct, Pneumonia of left hannah ng due to infectious organism, unspecified part of lung (ICD-10 - J18.9) Patient continues to be very weak and fatigued secondary to recent pneumonia. He is to continue with antibiotics, and I encouraged him to start breathing treatments at home. He has a nebulzer but hasnot been using it therefore I provided him with tubing and will refill his albuterol. He is to obtain labs and chest xray by the end of the week. Oct,Orthostatic hypotension (ICD-10 - I95.1) Patient is very hypotensive today in office. He reports he is taking 15mg of mididrine three times a day. His blood pressure was checked several times. He is symptomatic with dizziness and fatigue. [facility] was contacted and will attempt to schedule him an appointment DIMITRY Oct,entral spinal stenosis (ICD-10 - M48.00) Moderate central stenosis is noted on his recent ct scans and mylegrams, which are more than likelycausing his neurological issues / loss of bowel/bladder. He is scheduled to see neurosurgeon Dr. Wu in the next few weeks which had to be rescheduled due to recent pneumonia. We discussed this at length. Oct,arkinsons disease (ICD-10 - G20) Oct,iabetes (ICD-10 - E11.9) Oct,OtherPatient appears very weak today, more so than previous visits. He is not driving at thie time, his accompanies him today due to his weakness. Strongly advised back to the ER with any worsening sympoms. We did attempt to call his tube coater however nursing staff will need to discuss with Dr. Teran and they have advised that they will call both us and the patient back with an appt and recommendations due to his significant hypotention. [employer] Other 11-15-2022 Evaluation note* Encounter Date Diagnosis Assessment Notes Treatment Notes Treatment Clinical Notes Aug, Urinary bladder incontinence (IC D-10 - R32) Aug,arkinson disease (ICD-10 - G20) Encouraged patient to continue following with Dr. Bowden as scheduled. Aug,Full incontinence of feces (ICD-10 - R15.9) Aug,/P lumbar fusion (ICD-10 - Z98.1) Stongly suspect that patients loss of bowel/bladder control is neurological likely related to his spine and multiple spine surguries. He has not discussed with his surgeon Dr. Wu therefore this office call and disuss options and ask for guidance with this issue. Aug,rthostatic hypotension (ICD-10 - I95.1) Continue with midodrine, compression stockings and getting up slowly from seated position. Appears that this condition started during his post op spine surgery in January. He has been evaluated by cardiology. Aug,enign prostatic hyperplasia with lower urinary tract symptoms (ICD- 10 - N40.1) Dicsussed with patient that flomax may be contributing to his conditions, ie; blood pressure and incontinence. We will however will discuss with his neurosurgeon and determine further evaluation. Aug,Hyperlipidemia (ICD-10 - E78.5) Aug,Hyperglycemia (ICD-10 - R73.9) Aug,Needs flu shot (ICD-10 - Z23) [employer] Other 11-11-2022 Evaluation note* Encounter Date Diagnosis Assessment Notes Treatment Notes Treatment Clinical Notes Aug, Benign prostatic hyp erplasia with lower urinary tract symptoms, symptom details unspecified (ICD-10 - N40.1) [employer] Other 11-10-2022 Evaluation note* Encounter Date Diagnosis Assessment Notes Treatment Notes Treatment Clinical Notes Aug, Benign prostatic hyp erplasia with lower urinary tract symptoms, symptom details unspecified (ICD-10 - N40.1) [employer] Other 08-30-2022 Evaluation note* Encounter Date Diagnosis Assessment Notes Treatment Notes Treatment Clinical Notes May, Neuropathy (ICD-10 - G62.9) [employer] Other 08-03-2022 Evaluation note* Encounter Date Diagnosis Assessment Notes Treatment Notes Treatment Clinical Notes May, History of kidney stones (ICD-10 - Z87.442) May,Nausea (ICD-10 - R11.0) May,2Diabetes (ICD-10 - E11.9) May,onstipation (ICD-10 - K59.00) May,Neuropathy (ICD-10 - G62.9) May,rthritis (ICD-10 - M19.90) May,Hyperlipidemia (ICD-10 - E78.5) May,enign prostatic hyperplasia with lower urinary tract symptoms, symptom details unspecified (ICD-10- N40.1) May,arkinsonism (ICD-10 - G20) [employer] Other 06-07-2022 Evaluation note* Encounter Date Diagnosis Assessment Notes Treatment Notes Treatment Clinical Notes Mar, Hypotension (ICD-10 - I95.9) [employer] Other 05-03-2022 History of Present illness Narrative* Nevaeh Oviedo RN - 02/18/2022 12:15 PM EDT Discharged with [facility]ACP per cart to snf with AVS and scripts. * Nevaeh Oviedo RN - 02/18/2022 11:00 AM EDT Report called to [facility]. All Questions answered. Phone number given if [...] above. Evelina Parra MD, MD * Carla StallworthHOLLY ramirez - 02/17/2022 10:02 AM EDT [facility] ORTHOPEDICS Occupational Therapy Daily Note Time: Time In: 923 Time Out: 1001 Timed Code Treatment Minutes: 38 Minutes Minutes: 38 Date: 02/17/2022 Patient Name: Alisia Correa, Gender: male 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 Additional Goals?: No Fci Goals Time Frame for FCI goals : N/A due to short ELOS Following session, patient left in safe position with all fall risk precautions in place. * Lulu Chan, OT - 02/15/2022 2:57 PM EDT [facility] ORTHOPEDICS 7 Occupational Therapy Daily Note Time: Time In: 1452 Time Out: 1520 Timed Code Treatment Minutes: 28 Minutes Minutes: 28 Date: 02/15/2022 Patient Name: Alisia Correa, Gender: male Room: [address] [place] [address] : 1960 (61 y.o.) Referring Practitioner: Maki [...] Vaughan PT - 02/14/2022 3:02 PM EDT [facility] INPATIENT PHYSICAL THERAPY DAILY NOTE [facility] ORTHOPEDICS 7K - 7K-12/012-A Time In: 1416 [...] Ambulation Assistance: Independent Transfer Assistance: Independent Active Manager Administrative: Yes Additional Comments: pt states d/t PD, he requires assistance with transfers and ambulation; 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 Additional Goals?: No Fci Goals Time Frame for equipment operator intermodal yard goals : N/A due to short ELOS [...] - 02/14/2022 10:57 AM EDT [facility] OCCUPATIONAL THERAPY MISSED TREATMENT NOTE [facility] ORTHOPEDICS 7K 7K-12/012-A Date: 02/14/2022 Patient Name: Alisia Correa CSN: [id number] : 1960 (61 y.o.) Gender: male Referring [...] with consulting physicians Don Singh PA-C * Evelnia Parra MD - 02/13/2022 4:51 PM EDT [...] HOLLY Morejon - 02/13/2022 12:33 PM EDT [facility] ORTHOPEDICS 7K Occupational Therapy Daily Note Time: Time In: 1109 Time Out: 1135 Timed Code Treatment Minutes: 26 Minutes Minutes: 26 Date: 02/13/2022 Patient Name: Alisia Correa, Gender: male [facility] : 1960 (61 y.o.) Referring Practitioner: Maki [...] restrictions: hx PD; monitor BP SUBJECTIVE: RN maguied OT session. Pt. 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 Functional Outcome Measures: Completed -[facility] Inpatient Mobility without Stair Climbing Raw Score : 15 AM-[facility] Inpatient without Stair Climbing T-Scale Score : [...] to navigate home distances. Additional Goals?: No Fci Goals Time Frame for equipment operator intermodal yard goals : N/A due to short ELOS [...] HOLLY Morejon - 02/12/2022 2:39 PM EDT [facility] ORTHOPEDICS 7K Occupational Therapy Daily Note Time: Time In: 1356 Time Out: 1439 Timed Code Treatment Minutes: 43 Minutes Minutes: 43 Date: 02/12/2022 Patient Name: Alisia Correa, Gender: male [facility] : 1960 (61 y.o.) Referring Practitioner: Maki [...] Patient tolerance of treatment: fair. Discharge Recommendations: Subacute/usp facility and Inpatient Therapy Stay Equipment Recommendations: [...] Status: At risk for malnutrition (Comment) (02/10/22 3980) Context: Acute Illness Findings of the 6 clinical characteristics of malnutrition: Energy Intake: No significant decrease in energy intake Weight Loss: (4.8% wt loss in 18 days however now eating 76-100%) Body Fat Loss: No significant body fat loss Muscle Mass Loss: No significant muscle mass loss Fluid Accumulation: Mild Extremities Software Trainer Strength: Not Performed Nutrition Assessment: Pt. nutritionally [...] Anthropometric Measures: Height: 5' 10 (177.8 cm) Trion Body Weight (IBW): 166 lbs (75 kg) [...] 1625-1806kcals (18-20kcals/kgm) Weight Used for Protein Requirements: Trion Protein (g/day): 105-150 grams (1.4-2 grams protein/kgm [...] Corrales PTA - 02/12/2022 11:52 AM EDT [facility] INPATIENT PHYSICAL THERAPY DAILY NOTE [facility] ORTHOPEDICS 7K - 7K-12/012-A Time In: 827 Time Out: 905 Timed Code Treatment Minutes: 38 Minutes Minutes: 38 Date: 02/12/2022 Patient Name: Alisia Correa, Gender: male : 1960 (61 y.o.) Referring Practitioner: S Radha, PA-C Diagnosis: lumbar stenosis with neurogenic claudication [...] Ambulation Assistance: Independent Transfer Assistance: Independent Active Manager Administrative: Yes Additional Comments: pt states d/t PD, he requires assistance with transfers and ambulation; 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 Additional Goals?: No Fci Goals Time Frame for equipment operator intermodal yard goals : N/A due to short ELOS [...] 02/11/2022 6:16 PM EDT Pt admitted to [facility] via cart/stretcher. Complaints: L2-S1 degenerative [...] patients right to have family, sales representative leather goods or physician notified of their admission. Patient has Declined for physician to be notified. Patient has Declined for family/sales representative leather goods to be notified. The patient is interested in [facility] meds to beds program?: No Policies and procedures for explained. All questions answered with no further questions at this time. Fall prevention and safety brochure discussed with patient. Bed alarm on. Call light in reach. * Peace Alonso RN - 02/11/2022 5:00 PM EDT Call placed to patients Dipti. Updated that the patient is transferring to [facility]. 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 Additional Goals?: No Fci Goals Time Frame for FCI goals : N/A due to short ELOS Following session, patient left in safe position with all fall risk precautions in place. * HOLLY Valles - 02/11/2022 1:02 PM EDT [facility] ICU STEPDOWN TELEMETRY 4K Occupational Therapy Daily Note Time: Time In: 1045 Time Out: 1129 Timed Code Treatment Minutes: 44 Minutes Minutes: 44 Date: 02/11/2022 Patient Name: Alisia Correa, Gender: male Room: [address] [place] [address] : 1960 (61 y.o.) Referring Practitioner: Maki [...] ml Net -695.86 ml URINARY CATHETER OUTPUT (Carringtno): [REMOVED] Urinary Catheter-Output (mL): 250 mL External [...] 02/07/2022 PCP: ELLEN CRABTREE, DO Interval History: LEVY. Events noted S/p [...] Status: At risk for malnutrition (Comment) (02/10/22 4635) Context: Acute Illness Findings of the 6 clinical characteristics of malnutrition: Energy Intake: No significant decrease in energy intake Weight Loss: (4.8% wt loss in 18 days however now eating 76-100%) Body Fat Loss: No significant body fat loss Muscle Mass Loss: No significant muscle mass loss Fluid Accumulation: Mild Extremities Software Trainer Strength: Not Performed Nutrition Assessment: Pt. nutritionally [...] Anthropometric Measures: Height: 5' 10 (177.8 cm) Trion Body Weight (IBW): 166 lbs (75 kg) [...] 1625-1806kcals (18-20kcals/kgm) Weight Used for Protein Requirements: Trion Protein (g/day): 105-150 grams (1.4-2 grams protein/kgm [...] determine Stefania Lagunas RD, LD Contact: * Marielena Mustafa APRN - STOCK AND STATION AGENT - 02/10/2022 3:44 PM EDT Physician Progress Note PATIENT: ALISIA CORREA [facility] #: [id number] : 1960 ADMIT DATE: 02/07/2022 8:09 AM [...] you! Ronny Salcedo, FARIBAN,RN, CRCR RN Clinical Environmental Monitoring Specialist P: [phone] Options provided: -- Hypovolemic Shock -- Hypovolemia [...] HOLLY Mchugh - 02/10/2022 2:42 PM EDT [facility] STR ICU STEPDOWN TELEMETRY 4K Occupational Therapy Daily Note Time: Time In: 1358 Time Out: 1421 Timed Code Treatment Minutes: 23 Minutes Minutes: 23 Date: 02/10/2022 Patient Name: Alisia Correa, Gender: male Room: [facility]- : 1960 (61 y.o.) Referring Practitioner: Maki [...] Alisia Correa Date of : 1960 Acct: [id number] Admit Date: 02/07/2022 Primary System Consultant: none Per Dr Schrader's note: REASON FOR [...] Calix PTA - 02/10/2022 9:53 AM EDT [facility] INPATIENT PHYSICAL THERAPY DAILY NOTE [facility] ICU STEPDOWN TELEMETRY 4K - 4K--A Time In: 817 Time Out: 902 Timed [...] Needs assistance Transfer Assistance: Needs assistance Active Manager Administrative: No Additional Comments: pt states d/t PD, he requires assistance with transfers and ambulation; 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 Functional Outcome Measures: Completed [facility] Inpatient Mobility Raw Score : 12 [facility] Inpatient T-Scale Score : 35.33 ASSESSMENT: Assessment: [...] to navigate home distances. Additional Goals?: No Fci Goals Time Frame for equipment operator intermodal yard goals : N/A due to short ELOS [...] EDT Physician Progress Note PATIENT: ALISIA CORREA [facility] #: [id number] : 1960 ADMIT DATE: 02/07/2022 8:09 AM [...] Dulera Thank you! Nevaeh Goldsmith RN, BSN, MANAGER DISTRIBUTION, CCDS Clinical Environmental Monitoring Specialist Options provided: -- Acute pulmonary insufficiency following [...] Alisia Correa Date of : 1960 Acct: [id number] 4K-025-A Primary Care Physician: ELLEN CRABTREE DO Admit [...] 61 16 02/08/225 (!) 99/43 62 16 02/08/223 (!) 104/45 97.8 F (36.6 C) Oral [...] TROPONINT in the last 72 hours. Imaging: @AVNSPAP4DOT@ EKG: Diet: ADULT DIET; Regular; 4 carb [...] Nightly Continuous Infusions: DOPamine 9.5 mcg/kg/min (02/09/22 8289) sodium chloride sodium chloride 150 mL/hr at [...] Dr Jorgensen. Pt seen and examined by ky D/w Marielena Mustafa Pt did not respond [...] 0915 Rapid Response team arrived. Marielena Mustafa DEMOGRAPHIC ANALYST at bedside. Saline bolus ordered and started. 921 BP 70/46 0923 Orders received. Start on telemetry monitoring, CXR, Increase Midodrine to TID, Stat H+H. 0937 Orders received. H+H at 1700, CBC in AM 1007 CXR at bedside. BP 64/45. Hgb 11.4. IM notified. 1023 BP continues to be low. 500mL saline bolus started 1141 BP 85/47 after bolus. Updated STOCK AND STATION AGENT. 1218 BP 70/38, at bedside. Ordered to [...] - 02/08/2022 1:01 PM EDT [facility] INPATIENT OCCUPATIONAL THERAPY [facility] ORTHOPEDICS 7K EVALUATION Time: Time In: 1052 [...] needing to return to bed from recliner. DOCUMENTATION CLERK present to assist. 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 VISION:WFL HEARING: WFL COGNITION: Slow Processing [...] Pandya, PT - 02/08/2022 10:33 AM EDT [facility] INPATIENT PHYSICAL THERAPY EVALUATION [facility] ORTHOPEDICS 7K - 7K-26/026-A Time In: 747 Time Out: 829 Timed Code Treatment Minutes: 24 Minutes Minutes: [...] Assistance: Needs assistance ( assists him) Active Manager Administrative: No Additional Comments: pt states d/t PD, he requires assistance with transfers and ambulation; 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 Unsafe to return home at this [...] to navigate home distances. Additional Goals?: No Fci Goals Time Frame for FCI goals : N/A due to short ELOS [...] and faxed to pharmacy * [facility] - 02/07/2022 4:29 PM EDT Pharmacy Note [...] 02/07/2022 2:11 PM EDT Pt admitted to 76 via cart/stretcher. Complaints: L2-S1 decompression/fusion. IV normal [...] patients right to have family, sales representative leather goods or physician notified of their admission. Patient has Declined for physician to be notified. Patient has Declined for family/sales representative leather goods to be notified. The patient is interested in [facility] meds to beds program?: No Policies and procedures for explained. All questions answered with no further questions at this time. Fall prevention and safety brochure discussed with patient. Bed alarm on. Call light in reach. * Kiara Toro RN - 02/07/2022 9:49 AM EDT ADMITTED TO [facility] AND ORIENTED TO UNIT. SCDS ON. FALL AND ALLERGY BANDS ON. PT VERBALIZED APPROVAL FOR FIRST NAME, LAST INITIAL AND PHYSICIAN NAME ON UNIT WHITEBOARD. * Evangelist Cummins - 01/20/2022 9:11 AM EDT Called for PAT reminder Lft Msg. documented in this [facility] Work Phone: 1(936) 678-994105-03-2022 Hospital Discharge instructions* Discharge Instr - DYLON* [...] directive for healthcare treatment Durable power of county attorney for health care No, copy requested from family Healthcare power of county attorney Dipti- -- Admitting Physician: Frank Reddy MD PCP: ELLEN CRABTREE DO Discharging Nurse: Discharging Hospital Unit/Room#: 7K-12/012-A Discharging Unit Phone Number: Emergency Contact: Extended Emergency Contact Information Primary Emergency Contact: Dipti Correa Mobile Relation: Spouse Preferred language: Cymro Log Cut Off Sawyer needed? No Past Surgical History: Past Surgical History: Procedure Laterality Date BACK SURGERY x8 CYST REMOVAL spine with back surgery ESOPHAGUS SURGERY for cancer HAND SURGERY x3 HIP ARTHROPLASTY Bilateral KNEE ARTHROPLASTY Bilateral left x2 LUMBAR FUSION N/A 02/07/2022 L2-S1 DECOMPRESSION L2-S1 POSTERIOR FUSION WITH ILIAC BOLTS, L5-S1 TLIF performed by Frank Reddy MD at [facility] OR NECK SURGERY lymph nodes SHOULDER SURGERY [...] Assisted Dressing Assisted Toileting Assisted Feeding Assisted Quality Improvement Specialist Assisted Med Delivery whole Wound Care Documentation [...] applicable) Name: Address: Dialysis Schedule: Phone: Fax: Lead Based Paint Technician/Medical Health Researcher signature: {Esignature:[id number]} PHYSICIAN SECTION Prognosis: {Prognosis:4204835222} Condition at Discharge: { Patient Condition:902745058} Rehab Potential (if transferring to Rehab): {Prognosis:5332170391} Recommended Labs or Other Treatments After Discharge: Physician Certification: I certify the above information and transfer of Alisia Correa is necessary for the continuing treatment of the diagnosis listed and that he requires {Admit to Appropriate Level of Care:45084} for {GREATER/LESS:218892373} 30 days. Update Admission H&P: {CHP DME Changes in HandP:889054635} PHYSICIAN SIGNATURE: * Additional Instructions* Nevaeh Oviedo [...] All vegetables, especially asparagus, jack sprouts, broccoli, [place] sprouts, cabbage, carrots, cauliflower, celery, corn, greens, [...] taking more than one drug. This includes odqm-cnf-fddayde medication and herb or dietary supplements. Plan [...] dr schrader 6-8 weeks documented in this [facility] Work Phone: 1(317) 637-608504-23-2022 NotePROCEDURE: XR CHEST PORTABLE CLINICAL INFORMATION: SOB. [...] by: Romel Maldonado DO 02/08/22 [facility] NotePROCEDURE: XR CHEST PORTABLE CLINICAL INFORMATION: [...] stable degenerative changes of the acromioclavicular joints. [id number] NotePROCEDURE: XR LUMBAR SPINE 1 VW CLINICAL [...] by: Milton Way MD 02/07/22 Final resultSaint [facility]04-22-2022 NotePROCEDURE: XR LUMBAR SPINE 1 VW [...] and L3 vertebral bodies. [facility] [id number] Evaluation note* Encounter Date Diagnosis Assessment Notes Treatment Notes Treatment Clinical Notes Jan, Lumbosacral stenosis (ICD-10 - M 48.07) Patient is scheduled for lumbar decompression and fusion of L2-S1 with Dr. Loza this month. Jan,Encounter for pre-operative examination (ICD-10 - Z01.818) Last stress test was preformed 09/05/2021 that was normal. Recent EKG reviewed with normal results.Blood work results reviewed with patient, no signs of anemia. Therefore, in my medical opinion the patient is cleared for sugery with Dr. Reddy. Jan,History of kidney stones (ICD-10 - Z87.442) Refill provided of the above medication. Jan,MRSA (methicillin resistant Staphylococcus aureus) (ICD-10 - A49.02) Nasal swab noted MRSA. Advised patient to crop picker antibiotic and start it as soon as possible. [employer] Other 04-07-2022 NotePROCEDURE: XR CHEST (2 VW) [...] Espinoza MD Signed by: Olga Espinoza MD 4/7/22 Final result[facility] Evaluation note* Encounter Date Diagnosis Assessment Notes Treatment Notes Treatment Clinical Notes Jan, Parkinsonism (ICD-10 - G20) Jan,2Diabetes (ICD-10 - E11.9) [facility] [employer] Other 03-28-2022 Evaluation note* Encounter Date Diagnosis Assessment Notes Treatment Notes Treatment Clinical Notes Dec, Constipation (ICD-10 - K59.00) [employer] Other 02-17-2022 Evaluation note* Encounter Date Diagnosis Assessment Notes Treatment Notes Treatment Clinical Notes Nov, Hyperlipidemia (ICD-10 - E78.5) Nov,arkinsonism (ICD-10 - G20) Patient following with neurologist Dr. Mancia and optician apprentice Dr. Harris. He reports improvementwith his strength since following with Dr. Harris and taking steriod injections. We are unsure of exact treatment plan, patient states that he will call back with further information. Nov,creening for prostate cancer (ICD-10 - Z12.5) PSA is within normal limits. Nov,Hypotension (ICD-10 - I95.9) Nov,Neuropathy (ICD-10 - G62.9) Nov,enign prostatic hyperplasia with lower urinary tract symptoms, symptom details unspecified (ICD-10- N40.1) [employer] Other 02-07-2022 Miscellaneous Notes* Telephone Encounter - Chrissy Christian - 11/25/2021 3:17 PM EST FINAL ATTEMPT Called and left detailed message for patient to call to schedule procedure with pain management. Will follow up. Patient provided with direct extension to reach surgical coordinators. If patient calls back, please transfer to [phone]. * Telephone Encounter - Chrissy Christian - 11/21/2021 6:07 PM EST Bilateral L 2-3 ,3-L4, L4-L5 and L5-S1 FACET ALISIA CORREA [id number] JEANNIE HENDERSON Called and left detailed message for patient to call to schedule procedure with pain management. Will follow up. Patient provided with direct extension to reach surgical coordinators. If patient calls back, please transfer to [phone]. * Telephone Encounter - Chrissy Christian - 11/14/2021 11:53 AM EST Bilateral L 2-3 ,3-L4, L4-L5 and L5-S1 FACET ALISIA CORREA [id number] JEANNIE Called and left detailed message for patient to call to schedule procedure with pain management. Will follow up. Patient provided with direct extension to reach surgical coordinators. If patient calls back, please transfer to [phone]. * Telephone Encounter - Kiara Dhaliwal RN [...] relief from today's block. [facility]* Encounter Date Diagnosis Assessment Notes Treatment Notes Treatment Clinical Notes Oct, Hypotension, unspecified hypoten lesia type (ICD-10 - I95.9) Oct,isk for falls (ICD-10 - Z91.81) Oct,2Diabetes (ICD-10 - E11.9) Oct,Neuropathy (ICD-10 - G62.9) Oct,Failed back syndrome (ICD-10 - M96.1) 05 [place], 2022Parkinsonism (ICD-10 - G20) [employer] Other 12-13-2021 Evaluation note* Encounter Date Diagnosis Assessment Notes Treatment Notes Treatment Clinical Notes Sep, Parkinsonism (ICD-10 - G20) [facility] Other 11-16-2021 Evaluation note* Encounter Date Diagnosis Assessment Notes Treatment Notes Treatment Clinical Notes Aug, Benign prostatic hyp erplasia with lower urinary tract symptoms (ICD-10 - N40.1) [employer] Other 11-09-2021 Evaluation note* Encounter Date Diagnosis Assessment Notes Treatment Notes Treatment Clinical Notes Aug, Constipation (ICD-10 - K59.00) Pt is to continue with the above medication, a refill was provided and we will continue to monitor. Aug,Hypotension (ICD-10 - I95.9) Review of cardiology consult notes with the patient . I am in agreement the patient follow through with scheduled stress test 09/05/21 and follow up with . Aug,arkinsonism (ICD-10 - G20) The patient encouraged to continue following with as scheduled for management for Parkinsonism. The patient is having difficulty with feeling any sensation in the lower bilateral extremities. Aug,ain of right heel (ICD-10 - M79.671) Right foot examination performed noting a small calcaneal ulcer and cyanosis. 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 Discussion was had regarding venous stasis . Per patient ordered venous studies several months ago. I did apply triple an tibiotic ointment and covered the wound with a band aid. Home care instructions provided and again I stressed the importance of following up with podiatry to avoid infection . 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 I encouraged him to call me with any concerns but will mainly need to follow with Dr. Mancia. 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 Encouraged him to continue with Protonix and I recommended referral to gastroenterology. He was in agreement with this and referral initiated. Jul,Ulcer (ICD-10 - L98.499) Jul,Hypotension (ICD-10 - I95.9) Encouaged patient to continue wearing compression stockings, and increase salt/water intake as directed. [employer] Other 10-28-2020 History of Present illness Narrative* Peace Blcok CT (Ct) - 08/15/2020 8:40 AM EDT [...] 15, 2020 8:27 AM [facility] of Present illness Narrative* Peace [...] 15, 2020 9:03 AM documented [facility] encounter[facility] History of Past illness Narrative* ProblemNoted DateResolved DateUlcerative Glenohumeral xgiahndpr08SPRAIN OF NECK ()03/06/2004 07/21/2019Brachial neuritis or dofuayviekt06Carpal tunnel iuxcalhq75documented as of this encounter (statuses as of 01/28/2022) [facility] of Past illness Narrative* ProblemNoted Date Resolved DateUlcerative tqkiie83Glenohumeral arthritis Urgency of mfhkotoww89/13/SPRAIN OF NECK ()Brachial neuritis or qjzclolmbpj54/19/2004 12/22/2018Carpal tunnel qfujqqop16documented as of this encounter (statuses as of 12/06/2022) [facility] Past illness Narrative* ProblemNoted Date Resolved DateUlcerative gwfjxs73Glenohumeral arthritis Urgency of qncjyvdzr57SPRAIN OF NECK ()Brachial neuritis or tvgqvknuzfz52/19/2004 12/22/2018Carpal tunnel ehbrcipm81documented as of this encounter (statuses as of 12/25/2022) [facility] illness Narrative* ProblemNoted Date Diagnosed DateResolved DateUlcerative npuwoq68Glenohumeral aorxswgpo81Urgency of ucffzskgi48SPRAIN OF NECK ()Brachial neuritis or ozqeowrhjgm38/19/2004 12/22/2018Carpal tunnel hlnzjjwe70documented as of this encounter (statuses as of 05/29/2023) [facility] illness Narrative* ProblemNoted Date Diagnosed DateResolved DateUlcerative jahqxg01Glenohumeral onzxiihsr86Urgency of uobvbkbts81SPRAIN OF NECK ()Brachial neuritis or wplqqnlpijo66/19/2004 12/22/2018Carpal tunnel oubojheo59documented as of this encounter (statuses as of 05/29/2023) [facility] Narrative* ProblemNoted Date Diagnosed DateResolved DateUlcerative dozbli89Glenohumeral jwojwrxzu38Urgency of rksyghsdz69SPRAIN OF NECK ()Brachial neuritis or uoegpzecsnm11/19/2004 12/22/2018Carpal tunnel pyebmjxq55documented as of this encounter (statuses as of 05/29/2023) [facility] History general Narrative - Reported* Type Description Date Medical History 06/07/12 Stress Test [facility] Medical Vvmuabu5145-umsdhfitdxj with Dr. Ordonez; 07/2016 colonoscopy/egd [facility] Medical History01/26/15 LabsMedical Arquhfq06/2016- stress test and echocardiogram at [facility] Rduenfw49/2016 EGD at [facility] Elcidhl19/02/16 PSA ( 0.79)Medical Historyf/u with Pain Mgmt Dr Elkins as of 02/2017Medical Historyf/u with Ortho Dr Conway (left knee)Medical HistorySmoker- quits and restarts oftenMedical Essdpqz60/27/19 Colonoscopy w/ Dr. OrdonezMedical History Right total hip-04/10/20urgical History4 back surgeries lumbar and cervical Surgical Historyrt shoulder surgery k5Xivulvhm Historylt knee surgerySurgical Historyright hand surgery x 2Surgical HistoryvasectomySurgical HistoryT&A Surgical Historylumbar surgery.10-3-56Vgxqqoar Historyback surgery-Surgical Historyleft knee surgery06/2013Surgical Historypain stimulator06/2016Surgical Historyleft knee total replacement 2 nd04/27/2017Surgical HistoryRight Total Knee Replacement07/01/17Surgical HistoryLeft Shoulder Agzinnkwkdt45/13/2018 Surgical HistoryProstate Bands Ridgev7301/13/2018Surgical Historybronchoscopy 02/17/2019Surgical HistoryRight total hip-CC04/10/20Hospitalization HistorySEE ABOVE [employer] Other 08-20-2012 History general Narrative - Reported* Type Description Date Medical History 06/07/12 Stress Test [facility] Medical Wxlvfvj5631-zdhedsomjyr with Dr. Ordonez; 07/2016 colonoscopy/egd [facility] Medical History01/26/15 LabsMedical Lbihjzk84/2016- stress test and echocardiogram at [facility] Eflrbai56/2016 [facility] Sehedag[facility]/02/16 PSA ( 0.79)Medical Historyf/u with Pain Mgmt Dr Elkins as of 02/2017Medical Historyf/u with Ortho Dr Conway (left knee)Medical HistorySmoker- quits and restarts oftenMedical Nicfkus35/27/19 Colonoscopy w/ Dr. OrdonezMedical History Right total hip-04/10/20urgical History4 back surgeries lumbar and cervical Surgical Historyrt shoulder surgery j8Qflnekbi Historylt knee surgerySurgical Historyright hand surgery x 2Surgical HistoryvasectomySurgical HistoryT&A Surgical Historylumbar surgery.29-8-32Icivcpab Historyback surgery-Surgical Historyleft knee surgery06/2013Surgical Historypain stimulator06/2016Surgical Historyleft knee total replacement 2 nd04/27/2017Surgical HistoryRight Total Knee Replacement07/01/17Surgical HistoryLeft Shoulder Tajnybycied56/13/2018 Surgical HistoryProstate Bands Nhitvm1201/13/2018Surgical Historybronchoscopy 02/17/2019Surgical HistoryRight total hip-CC04/10/20urgical Historylumbar nerve blocks Dr. Henderson10/2021Hospitalization HistorySEE ABOVE [employer] Other 08-20-2012 History general Narrative - Reported* Type Description Date Medical History 06/07/12 Stress Test [facility] Medical Quloqiv9480-nhwivqsrvgd with Dr. Ordonez; 07/2016 colonoscopy/egd [facility] Medical History01/26/15 LabsMedical Ypzlzej72/2016[facility] Jpjduqe54/02/16 PSA ( 0.79)Medical Historyf/u with Pain Mgmt Dr Elkins as of 02/2017Medical Historyf/u with Ortho Dr Conway (left knee)Medical HistorySmoker- quits and restarts oftenMedical Yniesom08/27/19 Colonoscopy w/ Dr. OrdonezMedical History Right total hip-04/10/20Medical Elkdsik21/2021 Stress TestMedical Jdrohra00/2022 EKGSurgical History4 back surgeries lumbar and cervicalSurgical Historyrt shoulder surgery f8Yukmuipf Historylt knee surgerySurgical Historyright hand surgery x 2Surgical HistoryvasectomySurgical HistoryT&ASurgical Historylumbar surgery.06-2-39Fwvnxczw Historyback surgery-Surgical Historyleft knee surgery 06/2013Surgical Historypain stimulator06/2016Surgical Historyleft knee total replacement 2 nd04/27/2017Surgical HistoryRight Total Knee Replacement07/01/17 Surgical HistoryLeft Shoulder Sgsbonarqtl31/13/2018Surgical HistoryProstate Bands Hidkml7901/13/2018Surgical Historybronchoscopy02/17/2019Surgical HistoryRight total hip-CC04/10/20urgical Historylumbar nerve blocks Dr. Henderson10/2021 Hospitalization HistorySEE ABOVE [employer] Other 08-20-2012 History general Narrative - Reported* Type Description Date Medical History 06/07/12 Stress Test [facility] Medical Dbriycs3831-xxgrfwwsecf with Dr. Ordonez; 07/2016 colonoscopy/egd [facility] Medical History01/26/15 LabsMedical Nskuhrh67/2016- [facility] Xbqwkzy96/2016 [facility] at [facility] Vuofkda00/02/16 PSA ( 0.79)Medical Historyf/u with Pain Mgmt Dr Elkins as of 02/2017Medical Historyf/u with Ortho Dr Conway (left knee)Medical HistorySmoker- quits and restarts oftenMedical Igncjai28/27/19 Colonoscopy w/ Dr. OrdonezMedical History Right total hip-04/10/20Medical Sckgjej97/2021 Stress TestMedical Gdtcioh07/2022 EKGSurgical History4 back surgeries lumbar and cervicalSurgical Historyrt shoulder surgery w1Gibjvutl Historylt knee surgerySurgical Historyright hand surgery x 2Surgical HistoryvasectomySurgical HistoryT&ASurgical Historylumbar surgery.23-4-78Pfqscrid Historyback surgery-Surgical Historyleft knee surgery 06/2013Surgical Historypain stimulator06/2016Surgical Historyleft knee total replacement 2 nd04/27/2017Surgical HistoryRight Total Knee Replacement07/01/17 Surgical HistoryLeft Shoulder Gzwcixilgja30/13/2018Surgical HistoryProstate Bands Bzjctm1801/13/2018Surgical Historybronchoscopy02/17/2019Surgical HistoryRight total hip-CC04/10/20urgical Historylumbar nerve blocks Dr. Henderson10/2021 Surgical HistoryLumbar decompression/fusion Dr Romo01/2022Hospitalization HistorySEE ABOVE [employer] Other 08-20-2012 History general Narrative - Reported* Type Description Date Medical History 06/07/12 Stress Test [facility] Medical Zmcivdx7230-slshkbausui with Dr. Ordonez; 07/2016 colonoscopy/egd [facility] Medical History01/26/15 LabsMedical Mconqxq60/2016[facility] Pxwzcsn10/2016 [facility] Thilnys28/02/16 PSA ( 0.79)Medical Historyf/u with Pain Mgmt Dr Elkins as of 02/2017Medical Historyf/u with Ortho Dr Conway (left knee)Medical HistorySmoker- quits and restarts oftenMedical Qwobhwp86/27/19 Colonoscopy w/ Dr. OrdonezMedical History Right total hip-04/10/20Medical Zzumyrc78/2021 Stress TestMedical Hmlozom76/2022 EKGSurgical History4 back surgeries lumbar and cervicalSurgical Historyrt shoulder surgery s6Xuqdwtuo Historylt knee surgerySurgical Historyright hand surgery x 2Surgical HistoryvasectomySurgical HistoryT&ASurgical Historylumbar surgery.19-0-25Isawllrr Historyback surgery-Surgical Historyleft knee surgery 06/2013Surgical Historypain stimulator06/2016Surgical Historyleft knee total replacement 2 nd04/27/2017Surgical HistoryRight Total Knee Replacement07/01/17 Surgical HistoryLeft Shoulder Ngcraimhqqk94/13/2018Surgical HistoryProstate Bands Dqzxgw5701/13/2018Surgical Historybronchoscopy02/17/2019Surgical HistoryRight total hip-CC04/10/20urgical Historylumbar nerve blocks Dr. Henderson10/2021 Surgical HistoryLumbar decompression/fusion Dr Romo4/2022Hospitalization HistorySEE ABOVEHospitalization Historypneumonia10/2022 [employer] Other [id number] History general Narrative - Reported* Type Description Date Medical History 06/07/12 Stress Test [facility] Medical Wombovv3197-bnpimnkvppd with Dr. Ordonez; 07/2016 colonoscopy/egd [facility] Medical History01/26/15 LabsMedical Ofgnkog43/2016[facility] Lhovgqn51/2016 [facility] at [facility] Divwvqt40/02/16 PSA ( 0.79)Medical Historyf/u with Pain Mgmt Dr Elkins as of 02/2017Medical Historyf/u with Ortho Dr Conway (left knee)Medical HistorySmoker- quits and restarts oftenMedical Oxecyws61/27/19 Colonoscopy w/ Dr. OrdonezMedical History Right total hip-04/10/20Medical Sddifhj59/2021 Stress TestMedical Sbgmkal59/2022 EKGMedical HistorySepticemiaMedical HistorySepticemiaSurgical History4 back surgeries lumbar and cervicalSurgical Historyrt shoulder surgery m6Nmgmbvrf Historylt knee surgerySurgical Historyright hand surgery x 2Surgical History vasectomySurgical HistoryT&ASurgical Historylumbar surgery.73-0-83Mdyeunxi Historyback surgery-Surgical Historyleft knee surgery06/2013Surgical History pain stimulator06/2016Surgical Historyleft knee total replacement 2 nd04/27/2017 Surgical HistoryRight Total Knee Replacement07/01/17Surgical HistoryLeft Shoulder Hucgmwvyzgo95/13/2018Surgical HistoryProstate Bands Jlushv7201/13/2018Surgical Historybronchoscopy02/17/2019Surgical HistoryRight total hip-CC04/10/20urgical Historylumbar nerve blocks Dr. Henderson/urgical HistoryLumbar decompression/fusion Dr Romo01/2022Hospitalization HistorySEE ABOVE Hospitalization Historypneumonia10/2022 [employer] Other [place] complaint Narrative - ReportedCHAJOEL CORREA is being seen for a consultation for chest pain.-[facility] DO Work Phone: Chief complaint Narrative - Reported* ALISIA CORREA is being seen for a consultation for chest pain. * 60-year-old white male who is being evaluated at the request of PCP for symptoms of dyspnea and chest pain with syncope. The patient appears older than his stated age and unfortunately has history ofParkinson's disease followed by neurology from [place] on medical therapy. The patient has been [...] 7 Parkinson's disease followed by neurology from [place]. * 8 obesity, encouraged the patient to reduce caloric consumption * 9 possible PAD, patient is following up with podiatry -[facility] [place] Work Phone: Evaluation + Plan note Future Appointments Appointment Date:02/20/2023 09:15:00 AM Scheduled Provider:Fidel IBARRA MD Location:[facility] Appointment Type:URO [facility] + Plan note Future Appointments Appointment Date:03/20/2023 09:00:00 AM Scheduled Provider: Location:[facility] Appointment Type:URO Nurse Visit [facility] evaluation + Plan note Future Appointments Appointment Date:04/17/2023 09:00:00 AM Scheduled Provider: Location:[facility] Appointment Type:URO Nurse Visit [facility] evaluation + Plan note Future Appointments Appointment Date:05/25/2023 11:00:00 AM Scheduled Provider: Location:[facility] Appointment Type:URO Nurse Visit [facility] evaluation + Plan note Future Appointments Appointment Date:06/19/2023 11:00:00 AM Scheduled Provider: Location:[facility] Appointment Type:URO Nurse Visit [facility] evaluation + Plan note Future Appointments Appointment Date:06/19/2023 11:00:00 AM Scheduled Provider: Location:[facility] [place] Appointment Type:URO Nurse Visit Diagnostic Tests Pending * [facility] Future Appointments Appointment Date:07/17/2023 11:00:00 AM Scheduled Provider: Location:[facility] Appointment Type:URO Nurse Visit [facility] evaluation + Plan note Future Appointments Appointment Date:07/17/2023 11:00:00 AM Scheduled Provider: Location:[facility] Appointment Type:URO Nurse Visit Diagnostic Tests Pending * Urine [facility] Future Appointments Appointment Date:08/14/2023 11:00:00 AM Scheduled Provider: Location:[facility] [place] Appointment Type:URO [facility] Plan note Future Appointments Appointment Date:08/14/2023 11:00:00 AM Scheduled Provider: Location:[facility] [place] Appointment Type:URO Nurse Visit Diagnostic Tests Pending * Urine [facility]17[facility] Future Appointments Appointment Date:09/14/2023 11:00:00 AM Scheduled Provider: Location:[facility] [place] Appointment Type:URO Nurse Visit [facility] evaluation + Plan note Future Appointments Appointment Date:10/20/2023 11:00:00 AM Scheduled Provider: Location:[facility] [place] Appointment Type:URO Nurse Visit [facility] evaluation + Plan note Future Appointments Appointment Date:11/16/2023 11:00:00 AM Scheduled Provider: Location:[facility] [place] Appointment Type:URO Nurse Visit Diagnostic Tests Pending * Urine [facility]21[facility]23 [facility] Future Appointments Appointment Date:12/14/2023 11:30:00 AM Scheduled Provider: Location:[facility] [place] Appointment Type:URO Nurse Visit [facility] evaluation + Plan note Future Appointments Appointment Date:02/01/2024 11:00:00 AM Scheduled Provider: Location:[facility] [place] Appointment Type:URO [facility] Plan note Future Appointments Appointment Date:02/22/2024 11:00:00 AM Scheduled Provider: Location:[facility] [place] Appointment Type:URO Nurse Visit [facility] evaluation + Plan note Future Appointments Appointment Date:03/15/2024 10:30:00 AM Scheduled Provider: Location:[facility] [place] Appointment Type:URO Nurse Visit [facility] evaluation + Plan note Future Appointments Appointment Date:03/15/2024 10:30:00 AM Scheduled Provider: Location:[facility] Appointment Type:URO Nurse Visit Diagnostic Tests Pending * Urine Culture 02[facility]23/24 [facility] Future Appointments Appointment Date:04/05/2024 02:40:00 PM Scheduled Provider:TITI Duncan APRN, [place] Location:[facility] Appointment Type:URO Office Visit [facility] evaluation + Plan note Future Appointments Appointment Date:04/26/2024 11:30:00 AM Scheduled Provider:TITI Duncan APRN, [place] Location:[facility] Appointment Type:URO Office Visit [facility] evaluation + Plan note Future Appointments Appointment Date:04/26/2024 11:30:00 AM Scheduled Provider:TITI Duncan APRN, [place] Location:[facility] Appointment Type:URO Office Visit Diagnostic Tests Pending * Urine Culture [facility]05/24 [facility] Future Appointments Appointment Date:06/30/2024 11:00:00 AM Scheduled Provider:Madeline Harry Location:[facility] Appointment Type:URO Office Visit [facility] evaluation + Plan note Future Appointments Appointment Date:06/30/2024 11:00:00 AM Scheduled Provider:Madeline Harry Location:[facility] Appointment Type:URO Office Visit Diagnostic Tests Pending * Urine Culture 06/14/24 [facility] Evaluation + Plan note Future Appointments Appointment Date:08/09/2024 02:30:00 PM Scheduled Provider:TITI Duncan APRN, [place] Location:[facility] Appointment Type:URO Office Visit [facility] evaluation + Plan note Future Appointments Appointment Date:08/30/2024 11:40:00 AM Scheduled Provider:LYN MACE PA-C Location:[facility] Appointment Type:URO Office Visit [facility] evaluation + Plan note Future Appointments Appointment Date:09/27/2024 11:20:00 AM Scheduled Provider:LYN MACE PA-C Location:[facility] Appointment Type:URO Office Visit [facility] evaluation + Plan note Future Appointments Appointment Date:07/19/2024 12:30:00 PM Scheduled Provider:TITI Duncan APRN, [place] Location:[facility] Appointment Type:URO Office Visit [facility] evaluation + Plan note Future Appointments Appointment Date:10/28/2024 11:20:00 AM Scheduled Provider:LYN MACE PA-C Location:[facility] Appointment Type:URO Office Visit Diagnostic Tests Pending * Urine Culture 09/27/24 [facility] evaluation + Plan note Future Appointments Appointment Date:10/28/2024 11:20:00 AM Scheduled Provider:LYN MACE PA-C Location:[facility] Appointment Type:URO Office Visit [facility] evaluation + Plan note Future Appointments Appointment Date:11/25/2024 11:20:00 AM Scheduled Provider:LYN MACE PA-C Location:[facility] Appointment Type:URO Office Visit [facility] evaluation + Plan note Future Appointments Appointment Date:12/27/2024 11:20:00 AM Scheduled Provider:LYN MACE PA-C Location:[facility] Appointment Type:URO Complex Office Visit [facility] evaluation + Plan note Future Appointments Appointment Date:12/27/2024 11:20:00 AM Scheduled Provider:LYN MACE PA-C Location:[facility] Appointment Type:URO Complex Office Visit Diagnostic Tests Pending * Urine Culture 11/28/24 [facility] Evaluation + Plan note Future Appointments Appointment Date:04/24/2025 10:00:00 AM Scheduled Provider:LYN MACE PA-C Location:[facility] Appointment Type:URO Office Visit Appointment Date:05/15/2025 10:00:00 AM Scheduled Provider:LYN MACE PA-C Location:[facility] Appointment Type:URO Office Visit [facility] evaluation + Plan note Future Appointments Appointment Date:05/15/2025 10:00:00 AM Scheduled Provider:LYN MACE PA-C Location:[facility] Appointment Type:URO Office Visit [facility] evaluation + Plan note Future Appointments Appointment Date:06/14/2025 12:30:00 PM Scheduled Provider:Michelle Mahoney PA-C Location:[facility] Appointment Type:URO Office Visit [facility] evaluation + Plan note Future Appointments Appointment Date:08/02/2025 02:30:00 PM Scheduled Provider:Michelle Mahoney PA-C Location:[facility] Appointment Type:URO Office Visit [facility] evaluation note* Diagnosis Lumbar stenosis with neurogenic claudication- Primary Spinal stenosis, lumbar region, with neurogenic claudication Idiopathic hypotension Hypotension, unspecified documented in this encounter [facility] Work Phone: evaluation noteNo [facility] Other Evaluation note* Diagnosis NO SHOW- Primary [facility] Diagnosis Postlaminectomy syndrome of lumbar region Postlaminectomy syndrome, lumbar region Pain in thoracic spine Spinal cord stimulator status Other postprocedural status documented in this encounter [facility]* Diagnosis Radiculopathy of lumbar region Thoracic or lumbosacral neuritis or radiculitis, unspecified documented [facility] this encounter [facility]* Diagnosis Pain in thoracic spine S/P insertion of spinal cord stimulator documented [facility] this encounter [facility]* Diagnosis Onset Date Resolution Status Diarrhea acuteIncontinence of bowelacuteMucus in stoolacuteNaSt. [facility] of [facility] Hospital Work Phone: Evaluation note* Diagnosis Onset Date Resolution Status Diarrhea acuteIncontinence of bowelacuteMucus in stoolacuteNauseaacuteChronic pain syndromeacuteHyperlipidemiaacuteHypotestosteronismacuteMucus in stoolacute Neurogenic bladderacuteNeurogenic bowelacuteSuprapubic catheteracute [facility] Work Phone: Evaluation note* Diagnosis Onset Date Resolution Status Diarrhea acuteDMII (diabetes mellitus, type 2)acuteFrequent headachesacuteMucus in stool acuteParkinsonsacuteSepsisacuteSuprapubic catheteracute [facility] Work Phone: Evaluation note* Diagnosis Encounter [...] fluctuating manifestations (CMS-HCC) documented [facility]* Diagnosis Encounter for screening [...] not intractable documented in this encounter [facility]* Diagnosis Migraine without aura and without status migrainosus, not intractable [facility] noteNo assessment information available [facility] Work Phone: Evaluation note* Diagnosis Parkinson's [...] Orthostasis Orthostatic hypotension [facility] Diagnosis Spinal stenosis of lumbar region with neurogenic claudication [facility] Diagnosis Migraine without aura and without status migrainosus, not intractable documented in this encounter [facility]* Diagnosis Encounter for screening for abdominal aortic aneurysm (AAA) in patient 50 years of age or older with history of smoking- Primary Critical limb ischemia of both lower extremities with gangrene (CMS-HCC) Abdominal aortic aneurysm dissection (CMS-HCC) Dissection of aorta, abdominal documented in this encounter [facility]* Diagnosis 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) documented in this encounter [facility]* Diagnosis Encounter for screening [...] neurogenic claudication documented in this encounter [facility]* Diagnosis Encounter for screening [...] Paralysis agitans documented in this encounter [facility]* Diagnosis Encounter for screening for abdominal aortic aneurysm (AAA) in patient 50 years of age or older with history of smoking- Primary Critical limb ischemia of both lower extremities with gangrene (CMS-HCC) Abdominal aortic aneurysm dissection (CMS-HCC) Dissection of aorta, abdominal Critical limb ischemia of both lower extremities with gangrene (CMS-HCC)- Primary Orthostasis Orthostatic hypotension documented in this encounter [facility]* Diagnosis Encounter for screening [...] not intractable documented in this encounter [facility]* Diagnosis Encounter for screening [...] neurogenic claudication documented in this encounter [facility]* Diagnosis Onset Date Resolution Status Admit Date Depression acuteMarch 2024 1:14pmDiabetesacuteMarch 2024 1:14pmMigraineacute March 2024 1:14pmParkinsonsacuteMarch 2024 1:14pmSuprapubic catheter acuteMarch 2024 1:14pm [facility] Work Phone: Evaluation note* Diagnosis Encounter [...] cerebellar ataxia documented in this encounter [facility]* Diagnosis Encounter for screening [...] gangrene (CMS-HCC) documented in this encounter [facility]* Diagnosis Encounter for screening [...] basal ganglia documented in this encounter [facility]* Diagnosis Encounter for screening [...] neurogenic claudication documented in this encounter [facility]* Diagnosis Encounter for screening [...] unspecified type documented in this encounter [facility]* Diagnosis Encounter for screening [...] Parkinson's disease without dyskinesia or fluctuating manifestations ([facility])- Primary 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 Diagnosis 1 Hypotension, unspeci fied hypotension type (I95.9) Diagnosis 2 Diabetes (E11.9) Diagnosis 3 Parkinsonism (G20) Diagnosis 4 Neuropathy (G62.9) Diagnosis 5 Failed back syndrome (M96.1) Diagnosis 6 Risk for falls (Z91. 81) Referral Organization [facility] Referring Provider First Name Ellen Referring Provider Last Name Leyda Referring Provider Specialty Family Prac candice Referred Organization [facility] Referred Address [address] [place],[address] Referred Provider Specialty Physical The rapist Referral Priority Routine [employer] Other Reason for referral (narrative)* Reason Patient is needing i n office consultation for change in stool and nausea. Please call patient with appointment date and time Diagnosis 1 Change in stool (R19 .5) Diagnosis 2 Nausea (R11.0) Referral Organization [facility] Referring Provider First Name Ellen Referring Provider Last Name Leyda Referring Provider Specialty Family Prac candice Referred Organization [facility] Gastroenterolo gy Referred Address [address],[address] Referred Provider Specialty Gastroentero logy Referral Priority Routine [facility] [employer] Other Reason for visit Narrative* Auth/CertSpecialty Diagnoses / ProceduresReferred By ContactReferred To Contact Diagnoses Lumbosacral spinal stenosis LUMBOSACRAL SPINAL STENOSIS Procedures POSTERIOR SEGMENTAL INSTRUMENTATION 3-6 VRT SEG CO INSJ BIOMCHN DEV INTERVERTEBRAL DSC SPC W/ARTHRD CO ALLOGRAFT FOR SPINE SURGERY ONLY MORSELIZED CO ARTHRODESIS COMBINED TQ 1NTRSPC LUMBAR CO ALEGRIA FACETEC/FORAMOT DRG ARTHRD LUMBAR 1 VRT SGM CO ALEGRIA FACETEC/FORAMOT DRG ARTHRD LMBR EA ADDL SGM CO ARTHRODESIS PST/PSTLAT TQ 1NTRSPC EA ADDL NTRSPC L2-S1 DECOMPRESSION L2-S1 POSTERIOR FUSION WITH ILIAC BOLTS, L5-S1 TLIF Frank Reddy MD [address] [place] [address] [place] [address] [facility] [address] [place] [address] Referral IDStatusReasonStart DateExpiration DateVisits RequestedVisits [id number] [employer] Work Phone: Summary Purpose Family History No Family History Records FoundUnknown Family Member Name Dates Details Family history of arterioscl erotic cardiovascular disease: Brother(V17.49, Z82.49) Status:ActiveFamily history of malignant neoplasm of brain: Brother(V16.8, Z80.8) Status:Active Unknown Family Member Name Dates Details Family history of arterioscl erotic cardiovascular disease: Brother(V17.49, Z82.49) Status:ActiveFamily history of malignant neoplasm of brain: Brother(V16.8, Z80.8) Status:Active Unknown Family Member Name Dates Details Family history of arterioscl erotic cardiovascular disease: Brother(V17.49, Z82.49) Status:ActiveFamily history of malignant neoplasm of brain: Brother(V16.8, Z80.8) Status:Active Unknown Family Member Name Dates Details Family history of arterioscl erotic cardiovascular disease: Brother(V17.49, Z82.49) Status:ActiveFamily history of malignant neoplasm of brain: Brother(V16.8, Z80.8) Status:Active Unknown Family Member Name Dates Details Family history of arterioscl erotic cardiovascular disease: Brother(V17.49, Z82.49) Status:ActiveFamily history of malignant neoplasm of brain: Brother(V16.8, Z80.8) Status:Active Relationship Condition Age at Onset Recorded Date/T haylee brother Malignant neoplasm of lung Unknown grandparentMalignant neoplasm of lungUnknownfatherDiabetes mellitusUnknownfather HypertensionUnknownbrotherMalignant neoplasm metastatic to brainUnknownNot SpecifiedHypertensionUnknownNot SpecifiedDiabetes mellitusUnknownNot Specified Cardiac diseaseUnknownbrotherDeceasedUnknownMalignant neoplasmUnknown HypertensionUnknowngrandparentMalignant neoplasmUnknownDeceasedUnknownHeart diseaseUnknown Relationship Condition Age at Onset Recorded Date/T haylee brother Malignant neoplasm of lung Unknown Malignant neoplasm metastatic to brainUnknowngrandparentMalignant neoplasm of lungUnknownfatherDiabetes mellitusUnknownHypertensionUnknownNot Specified HypertensionUnknownDiabetes mellitusUnknownCardiac diseaseUnknownbrotherDeceased UnknowngrandparentDeceasedUnknown Relationship Condition Age at Onset Recorded Date/T haylee brother Malignant neoplasm of lung Unknown Malignant neoplasm metastatic to brainUnknowngrandparentMalignant neoplasm of lungUnknownfatherDiabetes mellitusUnknownHypertensionUnknownmotherHypertension UnknownDiabetes mellitusUnknownCardiac diseaseUnknownbrotherDeceasedUnknown grandparentDeceasedUnknown Advance Directives No Advanced Directives Records FoundDocuments on File TypeDate RecordedPatient RepresentativeExplanationAdvance Directive(s)11/08/2021 10:04 AMAdvance Directive(s)09/25/2020 9:19 AMAdvance Directive(s)05/03/2020 10:06 AMAdvance Directive(s)11/08/2019 7:49 AMAdvance Directive(s)03/04/2018 1:07 PM Advance Directive(s)03/04/2018 1:11 PMAdvance Directive(s)04/15/2017 11:34 AM Advance Directive(s)06/05/2016 8:37 AMAdvance Directive(s)05/08/2016 8:58 AMCode StatusDate ActivatedDate InactivatedCommentsFull Code02/13/2022 7:01 AMFull Code 02/07/2022 8:29 AM02/07/2022 4:12 PMCode StatusDate ActivatedDate Inactivated CommentsDNR-CC12/03/2022 3:20 PMDNR Order Discussed With:PatientDNR-CCA12/01/2022 2:02 PM2 3:20 PMFull Code11/20/2022 6:26 12/01/2022 2:01 PMFull Code Order Discussed With:PatientCode StatusDate ActivatedDate InactivatedComments DNR-CC12/03/2022 3:20 PM2 7:51 PMCode StatusDate ActivatedDate InactivatedCommentsDNR-CC12/03/2022 3:20 12/06/2022 7:51 PMQuestionAnswer CommentsDNR Order Discussed With:PatientCode StatusDate ActivatedDate InactivatedCommentsDNR-CCA12/01/2022 2:02 12/03/2022 3:20 PMQuestionAnswer CommentsDNR Order Discussed With:PatientFull Code11/20/2022 6:26 PM2 2:01 PMQuestionAnswerCommentsFull Code Order Discussed With:Patient Advance Directive Response Recorded Date/ Time Advance Directives No November 10, 2023 4:28pm Date ActivatedDate InactivatedComments02/07/2021 1:34 PM02/19/2021 4:48 PMDate ActivatedDate InactivatedComments02/03/2021 2:46 PM02/07/2021 1:08 PMDate ActivatedDate InactivatedComments02/07/2021 1:34 PM02/19/2021 4:48 PMDate Activated Date InactivatedComments02/03/2021 2:46 PM02/07/2021 1:08 PM Advance Directive Response Recorded Date/ Time Advance Directives No November 10, 2023 3:28pm Code StatusDate ActivatedDate InactivatedCommentsFull Code02/07/2021 1:34 PM 02/19/2021 4:48 PMCode StatusDate ActivatedDate InactivatedCommentsFull Code 02/03/2021 2:46 PM02/07/2021 1:08 PMCode StatusDate ActivatedDate Inactivated CommentsFull Code02/07/2021 1:34 PM02/19/2021 4:48 PMCode StatusDate ActivatedDate InactivatedCommentsFull Code02/03/2021 2:46 PM02/07/2021 1:08 PM Hospital Course Note HNO ID: [id number] Author: Rolly Naik Service: Orthopaedic Surgery Author Type: Physician Rn Advice Type: Discharge Summary Filed: 11/12/2019 2:21 PM [...] (more content not included)... Note HNO ID: [id number] Author: Jason Guevara Jr. Service: Orthopaedic Surgery [...] (more content not included)... Note HNO ID: [id number] Author: Judy Mathews Service: ? Author Type: Nurse Locomotive Pipe Fitter Type: Anesthesia Procedure Notes Filed: 05/03/2020 1:32 PM Note Text: ANESTHESIOLOGY PROCEDURE NOTE Airway General Information Procedure Start Time/Medication Administration: 05/03/2020 12:55 PM Patient location during procedure: OR Staffing INSURANCE COUNSELOR: Kathleen Mathews Performed by: MARLENY Indications and Patient Condition Preoxygenated: yes Patient [...] not included)... Procedure Findings Note HNO ID: [id number] Author: Judy arita (Marleny) Bisi Service: ? Author Type: Nurse Locomotive Pipe Fitter Type: Anesthesia Procedure Notes Filed: 05/03/2020 1:32 PM Note Text: ANESTHESIOLOGY PROCEDURE NOTE Airway General Information Procedure Start Time/Medication Administration: 05/03/2020 12:55 PM Patient location during procedure: OR Staffing INSURANCE COUNSELOR: Kathleen Jaquez) Bisi Performed by: INSURANCE COUNSELOR Indications and Patient Condition Preoxygenated: yes Patient [...] 22.70) Referral Organization [facility] Referring Provider First Name Ellen Referring Provider Last Name Leyda Referring Provider Specialty Family Prac candice Referred Organization [facility] Gastroenterolo gy Referred Provider Yifan Gama Referred Address [address] [place] [phone] Referred Provider Specialty Gastroentero logy Referral Priority Routine General Notes Tomeka Hussein 021 10:28:40 AM >Graciela, is this suppose to be urgentVeGraciela farley 08/06/2021 10:49:26 AM > no, sorry must have accidentally made urgent :) SpecialtyDiagnoses / ProceduresReferred By ContactReferred To Contact Rehabilitation Diagnoses Parkinson's disease without dyskinesia or fluctuating manifestations Ramos Cervantes APRN-NATHEN [address] [place] [address] Referral IDStatusReasonStart DateExpiration DateVisits RequestedVisits [id number] Review Specialty Services Required [id number] / ProceduresReferred By ContactReferred To ContactSpeech Pathology Diagnoses Parkinson's disease without dyskinesia or fluctuating manifestations Ramos Cervantes APRN-STOCK AND STATION AGENT [address] [place] [address] Referral IDStatusReasonStart DateExpiration DateVisits RequestedVisits [id number] Review Specialty Services Required [id number] / ProceduresReferred By ContactReferred To Contact Diagnoses Critical limb ischemia of both lower extremities with gangrene ([facility]) Procedures Vas art doppler lwr bilat mult lev/PVR Heidy Marin MD [address], [place] [address] Referral IDStatusReasonStart DateExpiration DateVisits RequestedVisits [id number] [id number] / ProceduresReferred By ContactReferred To Contact Diagnoses Encounter for screening for abdominal aortic aneurysm (AAA) in patient 50 years of age or older with history of smoking Abdominal aortic aneurysm dissection ([facility]) Procedures Vas aorta/iliac duplex complete Heidy Marin MD [address], [place] [address] Referral IDStatusReasonStart DateExpiration DateVisits RequestedVisits [id number] Review/ Health Concerns InfectionOnset DateLast IndicatedResolved TimeCOVID-19 Confirmed Comment:20 day 11/26/22: Pt requiring HiFlo from 2 L NC, decadron started /11/2022 Chief Complaint and Reason for Visit Chief Complaint 2 Month Follow Up Amb Documentation change in stool/nausea/dr crabtree referredReason for VisitDiarrhea Incontinence of bowel Mucus in stool Nausea Chief Complaint Amb Documentation change in stool/nausea/dr crabtree referred 3 month follow upReason for VisitDiarrhea Incontinence of bowel Mucus in stool Nausea Chronic pain syndrome Hyperlipidemia Hypotestosteronism Mucus in stool Neurogenic bladder Neurogenic bowel Suprapubic catheter Chief Complaint Amb Documentation change in stool/nausea/dr crabtree referred 3 month follow up Diarrhea, mucus in stool, fecal incontience Diarrhea, mucus in stool, fecal incontienceReason for VisitDiarrhea Incontinence of bowel Mucus in stool Nausea Chronic pain syndrome Hyperlipidemia Hypotestosteronism Mucus in stool Neurogenic bladder Neurogenic bowel Suprapubic catheter Chief Complaint Amb Documentation hospital/[facility] follow upReason for VisitDiarrhea DMII (diabetes mellitus, type 2) Frequent headaches [...] 2025 1:44pm DMII (diabetes mellitus, type 2) [facility] bleed June 28, 2025 [...] section and content) DATE CREATED AUTHOR 04/09/2018 [facility] DATE CREATED AUTHOR AUTHOR'S ORGANIZ ATION 04/14/2018 [facility] DATE CREATED AUTHOR AUTHOR'S ORGANIZ ATION 04/14/2018 [facility] DATE CREATED AUTHOR AUTHOR'S ORGANIZ ATION 05/12/2020 [facility] DATE CREATED AUTHOR AUTHOR'S ORGANIZ ATION 09/17/2020 [facility] DATE CREATED AUTHOR AUTHOR'S ORGANIZ ATION 08/18/2021 [facility] DATE CREATED AUTHOR AUTHOR'S ORGANIZ ATION 09/10/2021 [facility] DATE CREATED AUTHOR AUTHOR'S ORGANIZ ATION 02/23/2022 [facility] DATE CREATED AUTHOR AUTHOR'S ORGANIZ ATION 12/15/2022 [facility] DATE CREATED AUTHOR AUTHOR'S ORGANIZ ATION 12/26/2022 [facility] DATE CREATED AUTHOR AUTHOR'S ORGANIZ ATION 03/29/2023 [facility] DATE CREATED AUTHOR AUTHOR'S ORGANIZ ATION 04/08/2024 [facility] DATE CREATED AUTHOR AUTHOR'S ORGANIZ ATION 04/24/2024 [facility] DATE CREATED AUTHOR AUTHOR'S ORGANIZ ATION 07/02/2024 [facility] DATE CREATED AUTHOR AUTHOR'S ORGANIZ ATION 10/02/2024 [facility] DATE CREATED AUTHOR AUTHOR'S ORGANIZ ATION 10/31/2024 [facility] DATE CREATED AUTHOR AUTHOR'S ORGANIZ ATION 12/04/2024 [facility] DATE CREATED AUTHOR AUTHOR'S ORGANIZ ATION 12/29/2024 [facility] DATE CREATED AUTHOR AUTHOR'S ORGANIZ ATION 03/18/2025 [facility] DATE CREATED AUTHOR AUTHOR'S ORGANIZ ATION 04/04/2025 [facility] DATE CREATED AUTHOR AUTHOR'S ORGANIZ ATION 07/28/2025 [facility] DATE CREATED AUTHOR AUTHOR'S ORGANIZ ATION 07/31/2025 [facility] DATE CREATED AUTHOR AUTHOR'S ORGANIZ ATION 08/03/2025 [facility] DATE CREATED AUTHOR AUTHOR'S ORGANIZ ATION 08/08/2025 [facility] Source Comments (unrecognize d section and content) In the event this informatio n is protected by the Federal Confidentiality of Alcohol and Drug Abuse Patient Records regulations: The Federal rules restrict any use of the information to criminally investigate or prosecute any alcohol or drug abuse patient.[facility] the event this information is protected by the Federal Confidentiality of Alcohol and Drug Abuse Patient Records regulations: The Federal rules restrict any use of the information to criminally investigate or prosecute any alcohol or drug abuse patient.[facility] the event this information is protected by the Federal Confidentiality of Alcohol and Drug Abuse Patient Records regulations: The Federal rules restrict any use of the information to criminally investigate or prosecute any alcohol or drug abuse patient.[facility] the event this information is protected by the Federal Confidentiality of Alcohol and Drug Abuse Patient Records regulations: The Federal rules restrict any use of the information to criminally investigate or prosecute any alcohol or drug abuse patient.[facility] the event this information is protected by the Federal Confidentiality of Alcohol and Drug Abuse Patient Records regulations: The Federal rules restrict any use of the information to criminally investigate or prosecute any alcohol or drug abuse patient.[facility] the event this information is protected by the Federal Confidentiality of Alcohol and Drug Abuse Patient Records regulations: The Federal rules restrict any use of the information to criminally investigate or prosecute any alcohol or drug abuse patient.[facility] Reason for Visit (unrecogniz ed section and content) ReasonCommentsPost OpReasonCommentsMedication ProblemReasonOnset DateCommentsNo Show12/24/2022No showReasonCommentsRadiology CTReasonOnset DateCommentsMed Sqvxzf48ReasonOnset DateCommentsMed Hztvpe8711/19/2024ReasonCommentsMed RefillReasonOnset DateCommentsMed Hdwker9011/23/2024ReasonOnset DateCommentsMed Arqyka924ReasonOnset DateCommentsMed Rmwczy144ReasonOnset Date CommentsMed Gpuwit05/06/2024ReasonOnset DateCommentsMed Okuxle594Reason CommentsAortic Aneurysm1 month follow up for AAA Dissection, Critical limb ischemia. Recent testing.ReasonOnset DateCommentsMed Ypicqj754ReasonOnset DateCommentsMed Opgmju184ReasonCommentsLE Pain and SwellingReasonOnset DateCommentsMed Yssbmi524ReasonOnset DateCommentsMed Gzumqe9407/31/2024 ReasonOnset DateCommentsMed Smtquv984ReasonOnset DateCommentsMed Refill 1822IfaznnFamfiepw9 year follow up no testingReasonOnset DateCommentsMed Vtwbgh1704/04/2025ReasonOnset DateCommentsNew Zmwjnfy7206/06/2025ReasonOnset Date CommentsMed Bojqoo4107/13/20251090NusgjnIvqvuuzaTdksgg-fl8-2 month f.u Care Teams (unrecognized sec tion and content) Team MemberRelationshipSpecialtyStart DateEnd Date Ellen Crabtree [address] [place] [address] PCP - General06/10/02Team MemberRelationshipSpecialtyStart DateEnd Date Ellen Crbatree DO PCP - GeneralFamily [facility]01/23/22Team MemberRelationshipSpecialtyStart DateEnd Date Ellen Crabtree [address] [place] [phone] PCP - General06/10/02Team MemberRelationshipSpecialtyStart DateEnd Date Ellen Crabtree [address] [place] [phone] PCP - General06/10/02Team MemberRelationshipSpecialtyStart DateEnd Date Ellen Crabtree [address] [place] [address] PCP - General06/10/02Team MemberRelationshipSpecialtyStart DateEnd Date Ellen Crabtreeer [address] [place] [phone] PCP - General06/10/02Team MemberRelationshipSpecialtyStart DateEnd Date Ellen Crabtree [address] [place] [phone] PCP - General06/10/02 Team Status: Active Member Role Status Dates Samira Bowden Specialist Active Ren Watson , DANIELpecialistActiveGraciela Macias , LPNCare ManagerActivePatricjudy Ibarra , MDSpecialistActiveEllen Crabtree , CHARIriramos Care ProviderActive Team Status: Inactive Member Role Status Aneta Crabtree DO Attending Provider Active Start: November 10, 2023 End: November 10, 2023 Team Status: Active Member Role Status Aneta Crabtree DO Primary Care Provider Active Sta rt: January 06, 2024 Dion Balderas ProviderActiveStart: January 06, 2024 Team Status: Inactive Member Role Status Aneta Crabtree DO Primary Care Provider Active Sta rt: January 22, 2024 End: January 214Catherine L Ly , DOAttending ProviderActiveStart: January 22, 2024 End: January 22, 2024 Team Status: Inactive Member Role Status Aneta Crabtree DO Primary Care Provide r, Attending Provider Active Start: February 10, 2024 End: February 10, 2024 Team Status: Inactive Member Role Status Aneta Crabtree DO Primary Care Provider Active Sta rt: February 11, 2024 End: February 10atherine L Ly , DOAttending ProviderActiveStart: February 11, 2024 End: February 11, 2024 Team Status: Active Member Role Status Aneta Crabtree DO Primary Care Provider Active Sta rt: February 11, 2024 Bernice L Ly , DOAttending Provider, Other ProviderActiveStart: February 11, 2024 Team Status: Active Member Role Status Dates Ellen Crabtree DO Primary Care Provide r, Attending Provider Active Start: April 23, 2024 Team Status: Active Member Role Status Dates Ellen Crabtree DO Primary Care Provider Active Sta rt: April 24, 2024 Darryn Davies ProviderActiveStart: April 24, 2024 Team Status: Active Member Role Status Dates Ellen Crabtree DO Primary Care Provider Active Sta rt: April 24, 2024 End: April 27melina Villarreal DOAttending ProviderActiveStart: April 24, 2024 End: April 27, 2024LANDY Davieseferring ProviderActiveStart: April 24, 2024 End: April 27, 2024 Team Status: Active Member Role Status Dates Ellen Crabtree DO Primary Care Provider Active Sta rt: April 25, 2024 Vicki Daviesending ProviderActiveStart: April 25, 2024 Team Status: Active Member Role Status Dates Ellen Crabtree DO Primary Care Provider Active Sta rt: April 26, 2024 Vicki Daviesending ProviderActiveStart: April 26, 2024 Team Status: Active Member Role Status Dates Ellen Crabtree DO Primary Care Provider Active Sta rt: April 27, 2024 Vicki Daviesending ProviderActiveStart: April 27, 2024 Team Status: Active Member Role Status Dates Ellen Crabtree DO Primary Care Provider Active Sta rt: May 25, 2024 Carmella Kirk ProviderActiveStart: May 25, 2024 Team Status: Inactive Member Role Status Dates Ellen Crabtree DO Primary Care Provide r, Attending Provider Active Start: June 21, 2024 End: June 21, 2024Team MemberRelationshipSpecialtyStart DateEnd Date Ellen Crabtree DO [address] [place] [address] [facility]Team MemberRelationshipSpecialtyStart DateEnd Date Ellen Crabtree DO [address] [place] [address] PCP - GeneralFamily Medicine01/17/21Team MemberRelationshipSpecialtyStart DateEnd Date Ellen Crabtree DO [address] [place] [address] [facility] - [facility]21Team MemberRelationshipSpecialtyStart DateEnd Date Ellen Crabtree, [address] [place] [address] [facility] - [facility]/17/21Team MemberRelationshipSpecialtyStart DateEnd Date Ellen Crabtree, [address] [place] [phone] PCP - [facility] Medicine01/17/21Team MemberRelationshipSpecialtyStart DateEnd Date Ellen Crabtree, [address] [place] [phone] PCP - [facility] Medicine01/17/21Team MemberRelationshipSpecialtyStart DateEnd Date Ellen Crabtree DO [address] [place] [phone] [facility]21 Team Status: Inactive Member Role Status Dates Ellen Crabtree DO Primary Care Provider Active Sta rt: September 27, 2024 End: September 27lexHoney Gomez ProviderActiveStart: September 27, 2024 End: September 27, 2024 Team Status: Inactive Member Role Status Dates Ellen Crabtree DO Primary Care Provide r, Attending Provider Active Start: November 28, 2024 End: November 28, 2024MoLANDY Barkerefmilly ProviderActiveStart: November 28, 2024 End: November 28, 2024Team MemberRelationshipSpecialtyStart DateEnd Date Ellen Crabtree DO [address] [place] [address] PCP - GeneralFamily Medicine01/17/21Team MemberRelationshipSpecialtyStart DateEnd Date Ellen Crabtree DO [address] [place] [address] PCP - GeneralFamily Medicine01/17/21Team MemberRelationshipSpecialtyStart DateEnd Date Ellen Crabtree DO [address] [place] [address] PCP - GeneralFamily Medicine01/17/21Team MemberRelationshipSpecialtyStart DateEnd Date Ellen Crabtree DO [address] [place] [address] PCP - GeneralFamily Medicine01/17/21Team MemberRelationshipSpecialtyStart DateEnd Date Ellen Crabtree DO [address] [place] [address] PCP - GeneralFamily Medicine01/17/21Team MemberRelationshipSpecialtyStart DateEnd Date Ellen Crabtree DO [address] [place] [address] PCP - GeneralFamily Medicine01/17/21Team MemberRelationshipSpecialtyStart DateEnd Date Ellen Crabtree DO [address] [place], [place] [phone] PCP - GeneralFamily Medicine01/17/21Team MemberRelationshipSpecialtyStart DateEnd Date Ellen Crabtree, PCP - GeneralFamily Medicine01/17/21Team MemberRelationshipSpecialtyStart DateEnd Date Ellen Crabtree, PCP - GeneralFamily Medicine01/17/21Team MemberRelationshipSpecialtyStart DateEnd Date Ellen Crabtree, DO PCP - Generalmily Medicine01/17/21Team MemberRelationshipSpecialtyStart DateEnd Date Ellen Crabtree, [address] [place] [phone] PCP - Generalmi Medicine01/17/21 Team Status: Active Member Role Status Dates Samira Bowden Specialist Active Ren Watson , MDSpecialistActiveKyra Veverka , LPNCare ManagerActivePatrick Ibarra , MDSpecialistActiveCatherine L Ly , DOSpecialistActiveMohammed N Tomas , MDSpecialistActive Team Status: Active Member Role Status Aneta Crabtree DO Primary Care Provider Active Sta rt: December 13, 2024 Mercedez Resendez MDAttending ProviderActiveStart: December 13, 2024 Team Status: Inactive Member Role Status Dates Mercedez Resendez MD Attending Provider Active Sta rt: December 13, 2024 End: December 13, 2024 Team Status: Active Member Role Status Dates Samira Bowden Specialist Active Ren Watson , MDSpecialistActiveKyra Veverka , LPNCare ManagerActivePatrick Ibarra , MDSpecialistActiveCatherine L Ly , DOSpecialistActiveMohammed N Tomas , MDSpecialistActiveBrett Leyda , CHARIrimary Care ProviderActive Team Status: Inactive Member Role Status Aneta Crabtree DO Primary Care Provide r, Attending Provider Active Start: December 29, 2024 End: December 29, 2024 Team Status: Active Member Role Status Aneta Crabtree DO Primary Care Provider Active Sta rt: December 13, 2024 Vivian Villarreal DOAttending ProviderActiveStart: December 13, 2024 Team Status: Inactive Member Role Status Dates Ellen Crabtree DO Primary Care Provider Active Sta rt: January 30, 2025 End: January 30, 2025MicVicki Ovallesending ProviderActiveStart: January 30, 2025 End: January 30, 2025 Team Status: Inactive Member Role Status Dates Ellen Crabtree DO Primary Care Provider Active Sta rt: February 15, 2025 End: February 15, 2025Mictanya Leonardo MDAttending ProviderActiveStart: February 15, 2025 End: February 15, 2025Team MemberRelationshipSpecialtyStart DateEnd Date Ellen Crabtree DO [address] [place] [address] PCP - GeneralFamily Medicine01/17/21Team MemberRelationshipSpecialtyStart DateEnd Date Ellen Crabtree DO [address] [place] [address] PCP - GeneralFamily Medicine01/17/21Team MemberRelationshipSpecialtyStart DateEnd Date Ellen Crabtree DO [address] [place] [address] PCP - GeneralFamily Medicine01/17/21Team MemberRelationshipSpecialtyStart DateEnd Date Ellen Crabtree DO [address] [place] [address] PCP - GeneralFamily Medicine01/17/21Team MemberRelationshipSpecialtyStart DateEnd Date Ellen Crabtree DO [address] [place] [phone] PCP - GeneralFamily Medicine01/17/21Team MemberRelationshipSpecialtyStart DateEnd Date Ellen Crabtree DO [address] [place] [address] PCP - [facility]01/17/21 Team Status: Active Member Role Status Dates Ellen Crabtree DO Primary Care Provider Active Sta rt: May 29, 2025 Ellen Crabtree DOAttending ProviderActiveStart: May 29, 2025 Team Status: Active Member Role Status Dates Ellen Crabtree DO Primary Care Provider Active Sta rt: June 15, 2025 Abdoulaye Niñoskyla Enrique , DOAttending ProviderActiveStart: June 15, 2025 Team Status: Active Member Role Status Dates Ellen Crabtree DO Primary Care Provider Active Sta rt: June 28, 2025 Steven Gonzales MDAdmit ProviderActiveStart: June 28, 2025 Steven Gonzales MDOther ProviderActiveStart: June 28, 2025 Aleshia Hooks , RNOther ProviderActiveStart: June 28, 2025 Rose Vincent , RNOther ProviderActiveStart: June 28, 2025 Nellie Johnson , RNOther ProviderActiveStart: June 28, 2025 Kathy Lewis , ALFONSOOther ProviderActiveStart: June 28, 2025 Lorraine Valle , RNOther ProviderActiveStart: June 28, 2025 Dara Gonzales , RNOther ProviderActiveStart: June 28, 2025 Sandy Carlson MDOther ProviderActiveStart: June 28, 2025 Tai Richardson , DOOther ProviderActiveStart: June 28, 2025 Harvey Pat MDOther ProviderActiveStart: June 28, 2025 Skinny Jensen , DOOther ProviderActiveStart: June 28, 2025 David Logan MDOther ProviderActiveStart: June 28, 2025 Jacinta Sorensen MDOther ProviderActiveStart: June 28, 2025 Romel Rojas , DOOther ProviderActiveStart: June 28, 2025 iDllan Rodriguze MDOther ProviderActiveStart: June 28, 2025 Miryam Bell , APRNOther ProviderActiveStart: June 28, 2025 Lamont Sky MDOther ProviderActiveStart: June 28, 2025 Sophie Trujillo MDOther ProviderActiveStart: June 28, 2025 Vandana Kerr MDOther ProviderActiveStart: June 28, 2025 Romel Arevalo , DOOther ProviderActiveStart: June 28, 2025 Emelina Ojeda MDOther ProviderActiveStart: June 28, 2025 Enrico Hammer MDOther ProviderActiveStart: June 28, 2025 Elli Puckett , DEMOGRAPHIC ANALYST-COther ProviderActiveStart: June 28, 2025 Ferny Vazquez , APRNOther ProviderActiveStart: June 28, 2025 Quintin Hanley MDOther ProviderActiveStart: June 28, 2025 Arvind Sanders MDOther ProviderActiveStart: June 28, 2025 Gunnar Samano MDOther ProviderActiveStart: June 28, 2025 Hamzah Young , DOOther ProviderActiveStart: June 28, 2025 Nicolasa Perez , APRNOther ProviderActiveStart: June 28, 2025 Van Orozco , DOOther ProviderActiveStart: June 28, 2025 Petty Pulido MDOther ProviderActiveStart: June 28, 2025 Paradise Arias , APRNOther ProviderActiveStart: June 28, 2025 Paula Webb , APRNOther ProviderActiveStart: June 28, 2025 Radha Villalta MDOther ProviderActiveStart: June 28, 2025 Chato Rodriguez MDOther ProviderActiveStart: June 28, 2025 Sergio Shah , DOOther ProviderActiveStart: June 28, 2025 Jama Espinoza MDOther ProviderActiveStart: June 28, 2025 Joshua Martin MDOther ProviderActiveStart: June 28, 2025 Maribeth Zhang , APRNOther ProviderActiveStart: June 28, 2025 Jv Camacho MDOther ProviderActiveStart: June 28, 2025 Steven Brenner MDOther ProviderActiveStart: June 28, 2025 Dillan Arce MDOther ProviderActiveStart: June 28, 2025 Jesus Watson MDOther ProviderActiveStart: June 28, 2025 Adali Tineo , APRNOther ProviderActiveStart: June 28, 2025 Ruel Goncalves , APRNOther ProviderActiveStart: June 28, 2025 Fidelia Tarango , ALFONSOOther ProviderActiveStart: June 28, 2025 Heriberto Campos MDAttending ProviderActiveStart: June 28, 2025 Team Status: Active Member Role Status Dates Ellen Crabtree DO Primary Care Provider Active Sta rt: July 05, 2025 Steven Gonzales MDAdmit ProviderActiveStart: July 05, 2025 Steven Gonzales MDOther ProviderActiveStart: July 05, 2025 Aleshia Hooks , ALFONSOOther ProviderActiveStart: July 05, 2025 Rose Vincent , ALFONSOOther ProviderActiveStart: July 05, 2025 Nellie Johnson , RNOther ProviderActiveStart: July 05, 2025 Kathy Lewis , ALFONSOOther ProviderActiveStart: July 05, 2025 Lorraine Valle RNOther ProviderActiveStart: July 05, 2025 Dara Gonzales , ALFONSOOther ProviderActiveStart: July 05, 2025 Sandy Carlson MDOther ProviderActiveStart: July 05, 2025 Tai Richardson , DOOther ProviderActiveStart: July 05, 2025 Harvey Pat MDOther ProviderActiveStart: July 05, 2025 Skinny Jensen , DOOther ProviderActiveStart: July 05, 2025 David Logan MDOther ProviderActiveStart: July 05, 2025 Jacinta Sorensen MDOther ProviderActiveStart: July 05, 2025 Romel Rojas DOOther ProviderActiveStart: July 05, 2025 Dillan Rodriguez MDOther ProviderActiveStart: July 05, 2025 Miryam Bell , APRNOther ProviderActiveStart: July 05, 2025 Lamont Sky MDOther ProviderActiveStart: July 05, 2025 Sophie Trujillo MDOther ProviderActiveStart: July 05, 2025 Vandana Kerr MDOther ProviderActiveStart: July 05, 2025 Romel Arevalo , DOOther ProviderActiveStart: July 05, 2025 Emelina Ojeda MDOther ProviderActiveStart: July 05, 2025 Enrico Hammer MDOther ProviderActiveStart: July 05, 2025 Elli Puckett , DEMOGRAPHIC ANALYST-COther ProviderActiveStart: July 05, 2025 Ferny Vazquez , APRNOther ProviderActiveStart: July 05, 2025 Quintin Hanley MDOther ProviderActiveStart: July 05, 2025 Arvind Sanders MDOther ProviderActiveStart: July 05, 2025 Gunnar Samano MDOther ProviderActiveStart: July 05, 2025 Hamzah Young , DOOther ProviderActiveStart: July 05, 2025 Nicolasa Perez , APRNOther ProviderActiveStart: July 05, 2025 Van Orozco , DOOther ProviderActiveStart: July 05, 2025 Petty Pulido MDOther ProviderActiveStart: July 05, 2025 Paradise Arias , APRNOther ProviderActiveStart: July 05, 2025 Paula Webb , APRNOther ProviderActiveStart: July 05, 2025 Radha Villalta MDOther ProviderActiveStart: July 05, 2025 Chato Rodriguez MDOther ProviderActiveStart: July 05, 2025 Sergio Shah , DOOther ProviderActiveStart: July 05, 2025 Jama Espinoza MDOther ProviderActiveStart: July 05, 2025 Joshua Martin MDOther ProviderActiveStart: July 05, 2025 Maribeth Zhang , APRNOther ProviderActiveStart: July 05, 2025 Jv Camacho MDOther ProviderActiveStart: July 05, 2025 Steven Brenner MDOther ProviderActiveStart: July 05, 2025 Dillan Arce MDOther ProviderActiveStart: July 05, 2025 Jesus Watson MDOther ProviderActiveStart: July 05, 2025 Adali Tineo , APRNOther ProviderActiveStart: July 05, 2025 Nicoletto Bolzan-Jason , APRNOther ProviderActiveStart: July 05, 2025 Fidelia Tarango , RNOther ProviderActiveStart: July 05, 2025 Heriberto Campos MDAttending ProviderActiveStart: July 05, 2025 Team Status: Active Member Role Status Dates Ellen Crabtree DO Primary Care Provider Active Sta rt: July 12, 2025 Tara Nix ProviderActiveStart: July 12, 2025 Darryn Nix ProviderActiveStart: July 12, 2025 Steven Gonzales MDOther ProviderActiveStart: July 12, 2025 Aleshia Hooks , RNOther ProviderActiveStart: July 12, 2025 Rose Vincent , ALFONSOOther ProviderActiveStart: July 12, 2025 Nellie Johnson , ALFONSOOther ProviderActiveStart: July 12, 2025 Kathy Lewis , ALFONSOOther ProviderActiveStart: July 12, 2025 Lorraine Valle RNOther ProviderActiveStart: July 12, 2025 Dara Gonzales , ALFONSOOther ProviderActiveStart: July 12, 2025 Sandy Carlson MDOther ProviderActiveStart: July 12, 2025 Tai Richardson , DOOther ProviderActiveStart: July 12, 2025 Harvey Pat MDOther ProviderActiveStart: July 12, 2025 Skinny Jensen DOOther ProviderActiveStart: July 12, 2025 David Logan MDOther ProviderActiveStart: July 12, 2025 Jacinta Sorensen MDOther ProviderActiveStart: July 12, 2025 Romel Rojas DOOther ProviderActiveStart: July 12, 2025 Dillan Rodriguez MDOther ProviderActiveStart: July 12, 2025 Miryam Bell , APRNOther ProviderActiveStart: July 12, 2025 Lamont Sky MDOther ProviderActiveStart: July 12, 2025 Sophie Trujillo MDOther ProviderActiveStart: July 12, 2025 Vandana Kerr MDOther ProviderActiveStart: July 12, 2025 Romel Arevalo DOOther ProviderActiveStart: July 12, 2025 Emelina Ojeda MDOther ProviderActiveStart: July 12, 2025 Enrico Hammer MDOther ProviderActiveStart: July 12, 2025 Elli Puckett DEMOGRAPHIC ANALYST-COther ProviderActiveStart: July 12, 2025 Ferny Vazquez , APRNOther ProviderActiveStart: July 12, 2025 Quintin Hanley MDOther ProviderActiveStart: July 12, 2025 Arvind Sanders MDOther ProviderActiveStart: July 12, 2025 Gunnar Samano MDOther ProviderActiveStart: July 12, 2025 Hamzah Young , DOOther ProviderActiveStart: July 12, 2025 Nicolasa Perez , APRNOther ProviderActiveStart: July 12, 2025 Van Orozco , DOOther ProviderActiveStart: July 12, 2025 Petty Pulido MDOther ProviderActiveStart: July 12, 2025 Paradise Arias , APRNOther ProviderActiveStart: July 12, 2025 Paula Webb , APRNOther ProviderActiveStart: July 12, 2025 Radha Villalta MDOther ProviderActiveStart: July 12, 2025 Chato Rodriguez MDOther ProviderActiveStart: July 12, 2025 Sergio Shah , DOOther ProviderActiveStart: July 12, 2025 Jama Espinoza MDOther ProviderActiveStart: July 12, 2025 Joshua Martin MDOther ProviderActiveStart: July 12, 2025 Maribeth Zhang , APRNOther ProviderActiveStart: July 12, 2025 Jv Camacho MDOther ProviderActiveStart: July 12, 2025 Steven Brenner MDOther ProviderActiveStart: July 12, 2025 Dillan Arce MDOther ProviderActiveStart: July 12, 2025 Jesus Watson MDOther ProviderActiveStart: July 12, 2025 Adali Tineo , APRNOther ProviderActiveStart: July 12, 2025 Ruel Goncalves , APRNOther ProviderActiveStart: July 12, 2025 Fidelia Tarango RNOther ProviderActiveStart: July 12, 2025 Team Status: Active Member Role Status Dates Ellen Crabtree DO Primary Care Provider Active Sta rt: July 18, 2025 Dion Balderas ProviderActiveStart: July 18, 2025 Team Status: Active Member Role Status Dates Ellen Crabtree DO Primary Care Provider Active Sta rt: July 24, 2025 Darryn Gonzalez ProviderActiveStart: July 24, 2025 Team MemberRelationshipSpecialtyStart DateEnd Date Ellen Crabtree DO [address] [place] [address] PCP - GeneralFapaly Medicine01/17/21 Ordered Prescriptions (unrec ognized section and content) PrescriptionSigDispensedRefillsStart DateEnd cyclobenzaprine (FLEXERIL) 10 MG tablet Take 1 tablet by mouth 3 times daily as needed for Muscle spasms 30 tablet /05/2022 oxyCODONE-acetaminophen (PERCOCET) 5-325 MG per tablet Indications:Lumbar stenosis with neurogenic claudicationTake 1 tablet by mouth every 6 hours as needed for Pain for up to 7 days. 28 tablet /02/2022 Scheduled Active and Recently Administ ered Medications (unrecognized section and content) Medication Order//12/2021 acarbose (PRECOSE) tablet 25 mg 25 mg, Oral, 3 TIMES DAILY WITH MEALS, First dose on Thu02/07/22 at 1700, Until Discontinued * 0800 (Automatically Held - Provider: Evelina Parra MD) * 1200 (Automatically Held - Provider: Evelina Parra MD) * 1700 (Automatically Held - Provider: Evelina Parra MD) * 0800 (Automatically Held - Provider: Evelina Parra MD) * 1200 (Automatically Held - Provider: Evelina Parra MD) * 1700 (Automatically Held - Provider: Evelina Parra MD) * 0800 (Automatically Held - Provider: Evelina Parra MD) * 1200 (Automatically Held - Provider: Evelina Parra MD) * 1700 (Automatically Held - Provider: Evleina Parra MD) atorvastatin (LIPITOR) tablet 10 mg 10 mg, Oral, NIGHTLY, First dose on Thu02/07/22 at 2100, Until Discontinued * 2108 (Given - Provider: Peace Sol, RN) * 2019 (Given - Provider: Gladis Lezama RN) * 2100 (Due) bisacodyl (DULCOLAX) EC tablet 5 mg 5 mg, Oral, DAILY, First dose on Thu02/07/22 at 1645, Until Discontinued, Do not crush or break., Post-op * 0858 (Held - Provider: Malik De La Garza RN - Reason: Order parameters not met) * 0942 (Not Given - Provider: Marion Sharma RN - Reason: Patient/family refused) * 0841 (Not Given - Provider: Nevaeh Oviedo RN - Reason: Other - Comment: loose stools) carbidopa-levodopa (SINEMET CR) 25-100 MG per extended release tablet 1 tablet (Linked Group 1) 1 tablet, Oral, 4 TIMES DAILY, First dose on Thu02/07/22 at 1800, Until Discontinued, Do Not Crush or Chew * 0247 (Given - Provider: Macrina Garay RN) * 1355 (Given - Provider: Malik De La Garza RN) * 1728 (Given - Provider: Malik De La Garza RN) * 2109 (Given - Provider: Peace Sol, RN) * 0151 (Given - Provider: Peace Sol, RN) * 1344 (Given - Provider: Marion Sharma, ALFONSO) * 1805 (Given - Provider: Marion Sharma RN) * 2219 (Given - Provider: Gladis Lezama RN) * 0222 (Given - Provider: Gladis Lezama RN) * 1400 (Due) * 1800 (Due) * 2200 (Due) carbidopa-levodopa (SINEMET CR) 25-100 MG per extended release tablet 2 tablet (Linked Group 1) 2 tablet, Oral, 2 TIMES DAILY, First dose on Thu02/08/22 at 0600, Until Discontinued, Do Not Crush or Chew * 0617 (Given - Provider: Lyn Hammond RN) * 0857 (Given - Provider: Malik De La Garza RN) * 0518 (Given - Provider: Peace Sol, RN) * 0942 (Given - Provider: Marion Sharma, ALFONSO) * 0533 (Given - Provider: Gladis Lezama RN) * 1000 (Given - Provider: Nevaeh Oviedo, RN) carbidopa-levodopa (SINEMET) 25-100 MG per tablet 1 tablet 1 tablet, Oral, 3 TIMES DAILY, First dose on Thu02/13/22 at 1800, Until Discontinued, Takes at 1400, 1800, and 2200 * 1355 (Given - Provider: Malik De La Garza RN) * 1729 (Given - Provider: Malik De La Garza RN) * 2110 (Given - Provider: Peace Sol RN) * 1344 (Given - Provider: Marion Sharma, ALFONSO) * 1805 (Given - Provider: Marion Sharma RN) * 2219 (Given - Provider: Gladis Lezama RN) * 1400 (Due) * 1800 (Due) * 2200 (Due) carbidopa-levodopa (SINEMET) 25-100 MG per tablet 2 tablet 2 tablet, Oral, 2 TIMES DAILY, First dose on Thu02/14/22 at 0600, Until Discontinued, Takes at 0600and 1000 * 0617 (Given - Provider: Lyn Hammond RN) * 0857 (Given - Provider: Malik De La Garza RN) * 0518 (Given - Provider: Peace Sol RN) * 0942 (Given - Provider: Marion Sharma, ALFONSO) * 0533 (Given - Provider: Gladis Lezama RN) * 1000 (Given - Provider: Nevaeh Oviedo, RN) DULoxetine (CYMBALTA) extended release capsule 60 mg 60 mg, Oral, NIGHTLY, First dose on Thu02/07/22 at 2100, Until Discontinued, Do not crush or break.May add contents of capsule to apple juice or apple sauce, but not chocolate. * 2109 (Given - Provider: Peace Sol, ALFONSO) * 2019 (Given - Provider: Gladis Lezama RN) * 2100 (Due) ezetimibe (ZETIA) tablet 10 mg 10 mg, Oral, NIGHTLY, First dose (after last reorder) on Thu02/07/22 at 2100, Until Discontinued * 2109 (Given - Provider: Peace Sol RN) * 2018 (Given - Provider: Gladis Lezama RN) * 2099 (Due) insulin lispro (HUMALOG) injection vial 0-3 Units 0-3 Units, SubCUTAneous, NIGHTLY, First dose on Thu02/07/22 at 2100, Until Discontinued, If continuous tube feedings/TPN/NPO, give correction dose based on result, no reduction in dose. If eating or bolus tube feeding: Corrective Bedtime (50%) Low Dose Algorithm Glucose: Dose: 70-139 No [id number] 1 Unit 250-349 2 Units Over 350 3 Units * 2110 (Not Given - Provider: Peace Sol RN - Reason: Order parameters not met - Comment: 116) * 2018 (Not Given - Provider: Gladis Lezama RN - Reason: Order parameters not met) * 2099 (Due) insulin lispro (HUMALOG) injection vial 0-6 Units 0-6 Units, SubCUTAneous, 3 TIMES DAILY WITH MEALS, First dose on Thu02/07/22 at 1800, Until Discontinued, Corrective Low Dose Algorithm Glucose: Dose: 70- 139 No Insulin 140-199 1 Unit 200-249 2 Units 250-299 3 Units 300-349 4 Units 350-399 5 Units Over 399 6 Units * 0858 (Held - Provider: Malik De La Garza RN - Reason: Order parameters not met) * 1149 (Held - Provider: Malik De La Garza RN - Reason: Order parameters not met) * 1729 (Held - Provider: Malik De La Garza RN - Reason: Order parameters not met) * 0736 (Not Given - Provider: Marion Sharma RN - Reason: Order parameters not met - Comment: chem 99) * 1142 (Not Given - Provider: Marion Sharma RN - Reason: Order parameters not met - Comment: chem 88) * 1742 (Not Given - Provider: Marion Sharma RN - Reason: Order parameters not met - Comment: chem 88) * 0844 (Not Given - Provider: Nevaeh Oviedo RN - Reason: Order parameters not met) * 1121 (Not Given - Provider: Nevaeh Oviedo RN - Reason: Order parameters not met) * 1700 (Due) metFORMIN (GLUCOPHAGE) tablet 500 mg 500 mg, Oral, 2 TIMES DAILY WITH MEALS, First dose on Thu02/07/22 at 1700, Until Discontinued * 0858 (Given - Provider: Malik De La Garza RN) * 1729 (Given - Provider: Malik De La Garza RN) * 0942 (Given - Provider: Marion Sharma RN) * 1806 (Given - Provider: Marion Sharma, ALFONSO) * 0848 (Given - Provider: Nevaeh Oviedo RN) * 1700 (Due) midodrine (PROAMATINE) tablet 15 mg 15 mg, Oral, 3 TIMES DAILY WITH MEALS, First dose on Thu02/10/22 at 1300, Until Discontinued, Do not give after 1800 or within 4 hrs of bedtime. * 0856 (Given - Provider: Malik De La Garza RN) * 1150 (Given - Provider: Malik De La Garza RN) * 1728 (Given - Provider: Malik De La Garza RN) * 0942 (Given - Provider: Marion Sharma RN) * 1144 (Given - Provider: Marion Sharma RN) * 1806 (Given - Provider: Marion Sharma RN) * 0855 (Given - Provider: Nevaeh Oviedo RN) * 1200 (Due) * 1700 (Due) mometasone-formoterol (DULERA) 200-5 MCG/ACT inhaler 2 puff 2 puff, Inhalation, 2 TIMES DAILY, First dose on Thu02/07/22 at 2000, Until Discontinued, Substituted for Budesonide-Formoterol (SYMBICORT). * 0821 (Given - Provider: Irlanda Das RCP) * 1756 (Given - Provider: Marci Rivera RCP) * 2000 (Canceled Entry - Provider: Marci Rivera RCP) * 0818 (Given - Provider: Iveth Noe RCP) * 1821 (Given - Provider: Vickey Boykin RCP) * 0845 (Not Given - Provider: Vickey Boykin RCP - Reason: Other - Comment: with therapy) * 1900 (Due - Provider: Iveth Noe RCP) pantoprazole (PROTONIX) tablet 40 mg 40 mg, Oral, DAILY, First dose on Thu02/07/22 at 1645, Until Discontinued, Do not crush or break. * 0858 (Given - Provider: Malik De La Garza RN) * 0942 (Given - Provider: Marion Sharma RN) * 0849 (Given - Provider: Nevaeh Oviedo, RN) polyethylene glycol (GLYCOLAX) packet 17 g 17 g, Oral, DAILY, First dose on Thu02/07/22 at 1645, Until Discontinued, Post-op * 0858 (Held - Provider: Malik De La Garza RN - Reason: Order parameters not met) * 0942 (Not Given - Provider: Marion Sharma RN - Reason: Patient/family refused) * 0845 (Not Given - Provider: Nevaeh Oviedo RN - Reason: Other - Comment: loose stools) pregabalin (LYRICA) capsule 300 mg 300 mg, Oral, 2 TIMES DAILY, First dose (after last reorder) on Thu02/07/22 at 2100, Until Discontinued * 0858 (Given - Provider: Malik De La Garza RN) * 2110 (Given - Provider: Peace Sol RN) * 0942 (Given - Provider: Marion Sharma RN) * 2019 (Given - Provider: Gladis Lezama RN) * 0851 (Given - Provider: Nevaeh Oviedo, ALFONSO) * 2099 (Due) QUEtiapine (SEROQUEL) tablet 25 mg 25 mg, Oral, NIGHTLY, First dose on Thu02/07/22 at 2100, Until Discontinued * 2112 (Given - Provider: Peace Sol RN) * 2014 (Given - Provider: Gladis Lezama RN) * 2099 (Due) sennosides-docusate sodium (SENOKOT-S) 8.6-50 MG tablet 1 tablet 1 tablet, Oral, 2 TIMES DAILY, First dose on Thu02/07/22 at 2100, Until Discontinued, Post-op * 0858 (Held - Provider: Malik De La Garza RN - Reason: Order parameters not met) * 2110 (Not Given - Provider: Peace Sol RN - Reason: Patient/family refused) * 0942 (Not Given - Provider: Marion Sharma RN - Reason: Patient/family refused) * 2005 (Not Given - Provider: Gladis Lezama RN - Reason: Patient/family refused) * 0845 (Not Given - Provider: Nevaeh Oviedo RN - Reason: Other - Comment: loose stools) * 2100 (Due) sodium chloride flush 0.9 % injection 5-40 mL 5-40 mL, IntraVENous, EVERY 12 HOURS SCHEDULED (2 times per day), First dose on Thu02/07/22 at 2100, Until Discontinued, For Line Patency: Peripheral IV = 5 mL; Midline or Central Line = 10 mL/lumen.If following IV push medication, administer flush at same rate as the IV push. Flush volume is determined by type of infusion therapy being given. For non-viscous solutions use: Peripheral IV = 5 mL Midline or Central Line = 10 mL/lumen For viscous solutions (i.e. blood components, parenteral nutrition, contrast media, or after obtaining blood sample) use: Peripheral IV = 10 mL Midline or CentralLine = 20 mL/lumen, Post-op * 0859 (Given - Provider: Malik De La Garza RN) * 2111 (Given - Provider: Peace Sol RN) * 0949 (Given - Provider: Marion Sharma, ALFONSO) * 2019 (Given - Provider: Gladis Lezama RN) * 0857 (Not Given - Provider: Nevaeh Oviedo RN - Reason: Loss of IV access) * 2100 (Due) tolterodine (DETROL LA) extended release capsule 4 mg 4 mg, Oral, DAILY, First dose on Thu02/07/22 at 1900, Until Discontinued, Please select a reason the therapeutic interchange was not accepted: Other (Please Comment), Do not crush or break. * 0858 (Given - Provider: Malik De La Garza RN) * 0942 (Given - Provider: Marion Sharma, ALFONSO) * 0849 (Given - Provider: Nevaeh Oviedo, RN) topiramate (TOPAMAX) tablet 100 mg 100 mg, Oral, DAILY, First dose on Thu02/07/22 at 1645, Until Discontinued, It is not recommended to crush, break, or chew immediate release tablets due to bitter taste. * 0858 (Given - Provider: Malik De La Garza RN) * 0942 (Given - Provider: Marion Sharma, ALFONSO) * 0850 (Given - Provider: Nevaeh Oviedo, RN) Medication Order//12/2021 0.9 % sodium chloride infusion IntraVENous, at [...] from all sources in 24 hours., Post-op * 0856 (Given - Provider: Malik De La Garza RN) albuterol sulfate HFA 108 (90 Base) MCG/ACT inhaler 1 puff 1 puff, Inhalation, PRN, Starting on Thu02/07/22 at 1617, Until Discontinued, Wheezing, Initiate RTBronchodilator Protocol: Yes bisacodyl (DULCOLAX) suppository 10 mg 10 mg, Rectal, DAILY PRN, Starting on Thu02/07/22 at 1617, Until Discontinued, Constipation, First line therapy for constipation, Post-op cyclobenzaprine (FLEXERIL) tablet 10 mg 10 mg, Oral, 3 TIMES DAILY PRN, Starting on Thu02/07/22 at 1617, Until Discontinued, Muscle spasms,Post-op * 0856 (Given - Provider: Malik De La Garza RN) * 2111 (Given - Provider: Peace Sol RN) dextrose [...] 100 mL/hr. Repeat blood glucose in 15 minutesx2 and notify provider. glucose chewable tablet 16 [...] mg from all sources in 24 hours. * 0250 (Given - Provider: Mcarina Garay RN) * 0856 (See Alternative - Provider: Malik De La Garza RN) * 1541 (See Alternative - Provider: Malik De La Garza RN) * 0518 (Given - Provider: Peace Sol RN) * 1346 (Given - Provider: Marion Sharma, ALFONSO) * 2004 (Given - Provider: Gladis Lezama RN) * 0531 (Given - Provider: Gladis Lezama, RN) * 1145 (Given - Provider: Nevaeh Oviedo RN) oxyCODONE-acetaminophen (PERCOCET) 5-325 MG per tablet 1 tablet(Linked Group 3) Mg/kg dosing is based on the oxycodone component., 1 tablet, Oral, EVERY 6 HOURS PRN, Starting on Thu02/07/22 at 1827, Until Discontinued, Pain Severe (7-10), Maximum dose of acetaminophen is 4000 mgfrom all sources in 24 hours. * 0250 (See Alternative - Provider: Macrina Garay RN) * 0856 (Given - Provider: Malik De La Garza RN) * 1541 (Given - Provider: Malik De La Garza RN) * 0518 (See Alternative - Provider: Peace Sol RN) * 1346 (See Alternative - Provider: Marion Sharma, ALFONSO) * 2004 (See Alternative - Provider: Gladis Lezama RN) * 0531 (See Alternative - Provider: Gladis Lezama RN) * 1145 (See Alternative - Provider: Nevaeh Oviedo RN) [...] For viscous solutions (i.e. blood components, parenteral nutrition,contrast media, or after obtaining blood sample) use: Peripheral IV = 10 mL Midline or Central Line= 20 mL/lumen, Post-op traMADol (ULTRAM) tablet 50 mg 50 mg, Oral, EVERY 6 HOURS PRN, Starting on 02/08/22 at 2130, Until Discontinued, Pain Moderate (4-6), pain * 1947 (Given - Provider: Peace Sol RN) Order Group 1: carbidopa-levodopa (SINEMET CR) 25-100 MG per extended release tablet 1 tablet Jump to med 1 tablet, Oral, 4 TIMES DAILY, First dose on Thu02/07/22 at 1800, Until Discontinued
Do Not Crush or Chew
And carbidopa-levodopa (SINEMET CR) 25-100 MG per extended release tablet 2 tablet Jump to med 2 tablet, Oral, 2 TIMES [...] Thu02/07/22 at 1827, Until Discontinued, Pain Severe (7- 10)
Maximum dose of acetaminophen is 4000 mg [...] BE BASED ON THE PRIMARY CLINICAL RECORDS. [employer] provides no warranty or guarantee of the accuracy or completeness of information in this document.
[2025-08-09 11:57] LABS: Glucose Urine UA NEGATIVE (NEGATIVE)
== END 2025-08-09 11:31 | disposition home or self-care (01) ==
LOC: LAB 11:30
PROVIDERS: PCP Family Medicine; Visit Provider Urology
DX: L89.313 Pressure ulcer of right buttock, stage 3 (principal); N39.0 Urinary tract infection, site not specified
CPT/HCPCS: 81003; 87086

== ENCOUNTER 2025-09-01 09:32 | Outpatient (REF) | payer MEDICARE, OTHER, SELFPAY ==
--- OUTSIDE RECORDS SUMMARY | 2025-08-22 11:00 | XMS_ITS | Encounter Summary ---
Author Organization [facility] Address [address] [place] [address] Care Team Providers Care Doper Operator Name Role Phone Leyda Jaden Primary Care Provider [phone] Bhupendra Painter MD Unavailable Encounter Details DateTypeDepartmentCare Team (Latest Contact Info)Mvfunhrbnog98/04/2025 11:00 AM ESTAncillary Procedure [facility] [address] [place] [address] Encounter for checking and testing of cardiac pacemaker pulse generator (battery) Social History Tobacco UseTypesPacks/DayYears UsedDateSmoking Tobacco: JacnmyQpivukqvyn770.6 01/13/1978 - 08/19/2022mokeless Tobacco: NeverAlcohol UseStandard Drinks/Week CommentsNever0 (1 standard drink = 0.6 oz pure alcohol)[facility] UtilitiesAnswerDate RecordedIn the past 12 months has the [employer], gas, oil, or water [employer] threatened to shut off services in your home?No06/15/2025Humiliation, Afraid, Rape, and Kick questionnaireAnswerDate RecordedWithin the last year, have you been afraid of your partner or ex-partner?No07/06/2025Emotionally AbusedNot on file07/06/2025Physically AbusedNot on file07/06/2025Sexually AbusedNot on file 09/18/2025Overall Financial Resource Strain (CARDIA)AnswerDate RecordedHow hard is it for you to pay for the very basics like food, housing, medical care, and heating?Not hard at all06/15/2025PHQ-2AnswerDate RecordedPatient Health Questionnaire-2 Ckzxe701TransportationAnswerDate RecordedIn the past 12 months, has lack of transportation kept you from medical appointments or from getting medications?No06/15/2025Lack of Transportation (Non-Medical)Not on file 06/15/2025Housing Stability Vital SignAnswerDate RecordedIn the last 12 months, was there a time when you were not able to pay the mortgage or rent on time?No 06/15/2025Number of Times Moved in the Last YearNot on file06/15/2025t any time in the past 12 months, were you homeless or living in a intermediate (including now)? No06/15/2025Hunger Vital SignAnswerDate RecordedWithin the past 12 months, you worried that your food would run out before you got the money to buymore.Never true06/15/2025Ran Out of Food in the Last YearNot on file06/15/2025Sex and Gender InformationValueDate RecordedSex Assigned at BirthNot on fileLegal Sex Male04/16/2022 10:07 PM EDTGender IdentityChoose not to /18/2025 11:10 AM EDTSexual OrientationChoose not to wkncpurm97/18/2025 11:10 AM EDTdocumented as of this encounter Plan of Treatment DateTypeDepartmentCare Team (Latest Contact Info)Skclpfuuwks54/20/2025 1:30 PM ESTFollow-Up [facility] [address] [place] [phone] Roberth Cowan MD [address] [place] [address] documented as of this encounter Procedures Procedure NamePriorityDate/TimeAssociated DiagnosisCommentsCARDIAC DEVICE CHECK - IN CLINIC - PACEMAKER DUAL CHAMBER W/ SUZMMuihczr37/07/2025 10:58 AM EST Encounter for checking and testing of cardiac pacemaker pulse generator (battery) documented in this encounter Results * CARDIAC DEVICE CHECK - IN CLINIC - PACEMAKER DUAL CHAMBER W/ PROG (08/25/2025 10:58 AM EST)Anatomical RegionLateralityModalityOtherSpecimen (Source) Anatomical Location / LateralityCollection Method / VolumeCollection Time Received Time Narrative 08/30/2025 3:35 PM EST Normal device function Authorizing ProviderResult TypeResult StatusPaul Raphael MDCV IMPLANTABLE CARDIAC DEVICE PROCEDURESFinal Result documented in this encounter Visit Diagnoses Diagnosis Encounter for checking and testing of cardiac pacemaker pulse generator (battery) documented in this encounter Care Teams Team MemberRelationshipSpecialtyStart DateEnd Jaden Crabtree DO [address] [place] [phone] PCP - GeneralFamily Medicine04/25/25 Bhupendra Painter MD [address] [place] [phone] Consulting PhysicianUrology06/22/25documented as of this encounter
--- OUTSIDE RECORDS SUMMARY | 2025-09-01 09:39 | XMS_ITS ---
Author Organization [facility] Address [address] [place] [address] Care Team Providers Care Reinforcing Steel Erector Name Role Phone Jaden Crabtree DO Primary Care Provider [phone] Bhupendra Painter MD Unavailable Active Problems ProblemNoted DateDiagnosed KhdvLrovx42/28/8694Hfzlfreadwe51/28/2025Marginal ulcer06/15/2025ftercare following surgery of the musculoskeletal system 04/25/20258927Afklwi72/08/8373Ljhreyz23/08/2025PH with urinary obstruction 04/25/2025hest pain04/25/2025Degeneration of intervertebral disc of cervical nbxact8504/25/2025Degeneration of intervertebral disc of lumbosacral region 04/25/20256882Patrzehcgf68/08/2025owel tnevlcnfyrqn46/08/2025Incontinence without sensory /08/2025Iron deficiency moudxo9304/25/2025Kidney stones 04/25/2025Other forms of scoliosis, site ifqfqojgbcb65/08/2025Recurrent UTI 04/25/2025Sciatica, left side04/25/2025History of xtrlokvywzp09/08/2025Urinary fozcaempp93/08/2025UTI htpttysm05/08/2025Sinus pause04/25/2025Second degree heart block by electrocardiogram (ECG)04/14/2025 Overview (04/14/2025): On event monitor Pause of 3 .58 seconds 10:30am Open wound of left great toe03/16/2025 Overview (04/25/2025): PVR with toe pressures Critical limb ischemia of both lower extremities with xaubnfpe51/11/2024 Overview (04/25/2025): Bilateral toe wounds nonhealing, no PVR or testing Encounter for abdominal aortic aneurysm (AAA) bhptajtmy68/11/2024Acute kidney yhpbjz5808/20/2023Irritant contact dermatitis due to fecal jipgzcqkdzzl41/06/2023 Pressure injury of coccygeal region, stage ressure injury of left foot, tfwhmyasfvl55/06/2023 Overview (04/25/2025): Lateral foot Wound eschar of foot11/24/2022 Overview (04/25/2025): Right and left toes At risk for fczafwxx04/03/2023Severe protein-calorie gpjopvgzwilu88/03/2023 COVID-19 virus wmfefivoh62/02/0593Vvyi76/02/2023eneralized uvwrfjqo26/02/2023 Testicular opgonhiahdbb18/21/2022Lumbar stenosis with neurogenic claudication 2Coronary uqpsoruhujfdjtm17/14/2022History of fusion of cervical spine 10/10/2021hy-Drager toseieqp94/28/2021Walking difficulty due to ankle and foot 02/08/2021Falls ljwbkucipr88/11/2020Orthostatic mivunmmlysd79/11/2020 Multifactorial gait eevdlrwc31/11/2020Near oelxqzn7308/29/2020Right foot drop 08/29/2020Acute cystitis without civnboneo69/10/2020Tobacco use04/24/2020 Overview (04/25/2025): Last Assessment & Plan: Assessment: 60 pack years Currently 1/2 pack day since 01/2020 Cessation with strategies encouraged. Open wound of left heel11/08/2019Osteoarthritis of left hip11/08/2019Dysphagia 04/13/2019Psychosis due to Parkinson's tugzgmr8404/13/2019MGUS (monoclonal gammopathy of unknown significance)09/15/2018Spinal cord stimulator status 09/07/2018 Overview (04/25/2025): Last Assessment & Plan: Assessment: for LBP generator in right hip Aware to bring remote on DOS Complete tear of right rotator cuff08/02/2018Iron deficiency anemia secondary to inadequate dietary iron mvfmwf9606/16/2018Nicotine use zcsoaqxd45/30/2018Obesity, Class I, BMI 30-34.9003/17/2018CRPS (complex regional pain syndrome type I) 03/16/2018Shoulder tefmvkqcb16/13/2018Essential eavfywygnprr06/19/2018 Overview (03/20/2025): Last Assessment & Plan: Assessment: Medication for Control. Date: BP: 04/24/2020 115/80 Stable. Wtlscu3212/07/20172377Ddgtlyjbpgohws48/19/2018 Overview (04/25/2025): Last Assessment & Plan: Assessment: stable on medication Essential mrneyk0310/27/2017Glenohumeral arthritis, left10/26/2017Arthritis of knee04/27/2017COPD with chronic xiwksacxop54/28/2017 Overview (03/20/2025): Last Assessment & Plan: Assessment: Managed with inhalers No supplemental oxygen use RA 04/24/20 1148 SpO2: 97% Stable. Type 2 diabetes tostpjbb01/28/2017Chronic pain bsmaouyf66/28/2017 Overview (04/25/2025): Last Assessment & Plan: Assessment: lower back pain s/p SCS 02/2018 Monitored by Pain Management ( 04/03/2020) Postlaminectomy syndrome of lumbar lpglie0306/30/20169422Nodobgneahn40/22/2010 Frequency of /08/2010Slow urinary mktxmz3803/26/2010Impotence of organic vaiwpz6010/08/2007Malignant neoplasm of skin of lip05/11/2007 Overview (04/25/2025): Last Assessment & Plan: Assessment: s/p removal Psychosexual dysfunction, hnptsspmuxg20/13/2006Urinary kvqfecz9707/31/2006Brachial neuritis or qacgahkysgr05/30/2004Displacement of cervical intervertebral disc without wkaotlrdmd98/30/2004Displacement of thoracic intervertebral disc without ciinescicy40/19/2004 Current Treatment and Therapy Plans No current plan information found. Past Treatment and Therapy Plans No past plan information found. Lifetime Dose Tracking * ChemicalLifetime DoseAutomatic EntryManual EntryFluoro Time11.7 minutes0 zebimpv95.7 minutesAir Oawks167 mGy0 sUo922 mGyDose Area Ofmkuju65,190 mGy-cm2 0 mGy-cm212,190 mGy-cm2
--- OUTSIDE RECORDS SUMMARY | 2025-09-01 09:39 | XMS_ITS | Encounter Summary ---
Author Organization [facility] Address [address] [place] [address] Care Team Providers Care Supervisor Special Services Name Role Phone Unavailable Primary Care Provider Unavailabl e Encounter Details DateTypeDepartmentCare Team (Latest Contact Info)Jnvfoivghcb76/23/2024Clinisync Result Encounter [facility] Unsolicited Tracey Marin, [address], [address] [address] Social History Tobacco UseTypesPacks/DayYears UsedDateSmoking Tobacco: Never AssessedSex and Gender InformationValueDate RecordedSex Assigned at BirthNot on fileLegal Sex Male12/31/2022 7:03 PM EDTGender IdentityNot on fileSexual OrientationNot on filedocumented as of this encounter Plan of Treatment Not on file documented as of this encounter Procedures Procedure NamePriorityDate/TimeAssociated DiagnosisCommentsVASC US ABDOMINAL AORTA ANUERYSM AAA RBEVTCBQJ03/23/2024 2:31 PM EDT documented in this encounter Results * Vascular US abdominal aorta anuerysm AAA screening (03/10/2024 2:31 PM EDT) Anatomical RegionLateralityModalityAbdomenUltrasoundSpecimen (Source) Anatomical Location / LateralityCollection Method / VolumeCollection Time Received Time03/10/2024 2:31 PM EDT Narrative 03/10/2024 2:33 PM EDT [facility] ?[address] ? [place] [address] ?Vein Report ? Signed ? Patient: ALISIA CORREA ?MR#: [id number] ?? : 1960 ?Acct:[id number] ?? Age/Sex: 63 / M ?ADM Date: 05/23/24 ?? Loc: [facility] ? Attending Dr: Tracey Marin M.D. ? Ordering Physician: Tracey Marin M.D. ?? Date of Service: 03/10/24 ?? Procedure(s): VC US AAA SCREEN ?? Accession Number(s): [id number] ? cc: ELLEN ARIAS ; Tracey Marin M.D. ? [facility] ? [address] ? [place] [address] ? Patient Name: ?? ALISIA CORREA ? MRN: [facility]:[id number] ? date: 1960 ?Sex: M ?? Assigned Patient Location: VC ?? Current Patient Location: [facility] ?? Accession/Order Number: [id number] ?? Exam Date: 03/10/2024 ??10:05 ?Report Date: 03/10/2024 ??14:31 ? At the request of: ?? TRACEY ??BEATRIZ ? Procedure: ??VC US AAA SCREEN ? EXAM: VC US AAA SCREEN ? HISTORY: eNCOUNTER FOR SCREENING FOR AAA IN PATIENT 48 YEARS OF z13. ? COMPARISON: None. ? TECHNIQUE: Grayscale and color ultrasound ? FINDINGS: ? Proximal aorta: 3.0 x 3.1 cm ?? Mid aorta: 2.3 x 2.4 cm ?? Distal aorta: 2.3 x 2.2 cm ? Right common iliac artery: 2.0 x 2.0 cm ? Left common iliac artery: 1.5 x 1.5 cm ? Normal color Doppler flow throughout ? No significant atherosclerotic plaque. ?? Scattered dilated collateral veins measuring up to 1.4 cm ? VEIN/VC US AAA SCREEN ?? IMPRESSION: ? No aortic aneurysm ? Dilated collateral veins ? Electronically authenticated by: LIZETH ??WEST ?? Date: 03/10/2024 ??14:31 ? Dictated By: ?Lizeth Mcdonough M.D. ? Signed By: ?03/10/24 1433 ? DD/ 1431 ? TD/TT: ? Pump Rebuilder: Procedure Note Radiology, Radiologist, MD - 03/11/2024 [facility] [address] [place] [address] Vein Report Signed Patient: ALISIA CORREA LMR#: [id number] : 8Acct:[id number] Age/Sex: 63 / MADM Date: 03/10/24 Loc: [facility] Attending Dr: Tracey Marin M.D. Ordering Physician: Tracey Marin M.D. Date of Service: 03/10/24 Procedure(s): VC US AAA SCREEN Accession Number(s): [id number] cc: ELLEN ARIAS ; Tracey Marin M.D. [address] [address] Patient Name: ALISIA CORREA MRN: [facility]:[id number] date: 1960 Sex: M Assigned Patient Location: Current Patient Location: Accession/Order Number: [id number] Exam Date: 03/10/2024 10:05 Report Date: 03/10/2024 [...] Lizeth Mcdonough M.D. Signed By:03/10/24 1433 DD/ 1431 TD/TT: Pump Rebuilder: Authorizing ProviderResult TypeResult StatusMohamed Yves TAVERAS US PROCEDURES Final Result documented in this encounter Visit Diagnoses Not on filedocumented in this encounter
--- OUTSIDE RECORDS SUMMARY | 2025-09-01 09:39 | XMS_ITS | Clinical Summary ---
Author Organization [facility] Address [address] [place] [id number] Care Team Providers Care Nursing Assistant Name Role Phone Leyda Jaden Hyman Primary Care Provider [phone] Allergies Active AllergyReactionsCriticalityNoted DateCommentsMoxifloxacin HclRash,Hives, Itching,Shortness of MirdiqGpqlqt35/02/2006CelecoxibRash,Hives,GI UpsetHigh 06/04/2017Erythromycin BaseHives,Shortness of KcdcbeEqzg63/19/2004Clonazepam OyvoijfMvphuz81/17/9981EndlvmdpsiyvBvexoFyylza34/13/2010PimavanserinHives 08/23/2020 Medications MedicationSigDispense QuantityRefillsLast FilledStart DateEnd DateStatus [...] [facility], however had episode of bradycardia to30s [...] - Psych consulted, appreciate recs - Continue [employer] CUSTODIAN Cymbalta, Lyrica, Topamax - Continue Mirtazapine - [...] 2/2 obstruction, since pt auto-diuresing well after carringtno placed (11/26) Kidney US demonstrating mild R [...] stage Irritant contact dermatitis due to fecal vamvewcpldpv28/06/2023Wound eschar of foot11/24/2022 Overview (11/24/2022): Right and left toes Pressure injury of left foot, sdghirumqjs00/06/2023 Overview (11/24/2022): Lateral foot Severe protein-calorie whqsyicmxkxh19/03/2023At risk for ysucwkuw99/03/2023 COVID-19 virus rslquljmi35/02/2023Generalized cyhulxar49/02/7708Uani20/02/2023 History of fusion of cervical spine1Right foot drop08/29/2020Falls tbzoqctegf88/11/2020Multifactorial gait ogdcaade75/11/2020Spinal stenosis of lumbar anmaje0308/29/2020Orthostatic bwnfywlewqt92/11/2020Near gjacosi6608/29/2020 Spinal stenosis of cervical ucbsub2408/29/2020Osteoarthritis of right hip 05/03/2020Acute cystitis without ahzimjmjf01/10/2020 Assessment & Plan (04/27/2020 12:47 PM EDT): Assessment: per Urine Culture result. Pt. treated per susceptibility report and notified. Pt. reports he has tolerated Bactrim before ( 10/2019) Tobacco use04/24/2020 Assessment & Plan (04/24/2020 12:23 PM EDT): Assessment: 60 pack years Currently 1/2 pack day since 01/2020 Cessation with strategies encouraged. Megaloblastic anemia due to vitamin B12 kastbdsesz25/13/2020Osteoarthritis of left hip11/08/2019Open wound of left heel11/08/2019PD (Parkinson's disease) 04/13/2019 Assessment & Plan (04/24/2020 12:22 PM EDT): Assessment: Managed with med Monitored by Neurology Stable at baseline per Pt. report Assessment & Plan (10/18/2019 12:32 PM EST): Assessment: Sinemet 4 times a day to use morning of surgery Cplsxxwni67/26/2019Psychosis due to Parkinson's yagvxxq9904/13/2019MGUS (monoclonal gammopathy of unknown significance)09/15/2018Spinal cord stimulator slduws0209/07/2018 Assessment & Plan (04/24/2020 12:25 PM EDT): Assessment: for LBP generator in right hip Aware to bring remote on DOS Assessment & Plan (10/18/2019 12:34 PM EST): Assessment: Spinal cord stimulator in place to bring remote day of surgery Complete tear of right rotator cuff08/02/2018Iron deficiency anemia secondary to inadequate dietary iron xrbblj2906/16/2018Multilevel spine pain06/02/2018Nicotine use disorder, F17. Assessment & Plan (10/18/2019 12:32 PM EST): Assessment: Current Smoker Obesity, Class I, BMI 30-34.9003/17/2018CRPS (complex regional pain syndrome type I)03/16/2018Status post replacement of left shoulder joint02/08/2018Shoulder byhirijni10/13/7795Dxmiua63/19/2018Diabetes /19/2018 Assessment & Plan (10/18/2019 12:33 PM EST): Assessment: stable on oral medication Hemoglobin A1C (%) Date Value 05/18/2018 5.9 06/17/2017 5.3 Essential uyfebaofvhao99/19/2018 Assessment & Plan (04/24/2020 12:15 PM EDT): Assessment: Medication for Control. Date: BP: 04/24/2020 115/80 Stable. Ujcypmnnlyzjpg69/19/2018 Assessment & Plan (10/18/2019 12:32 PM EST): Assessment: stable on medication Essential gcwxpg6610/27/2017 Assessment & Plan (04/24/2020 12:14 PM EDT): Assessment: right hand Assessment & Plan (10/18/2019 12:32 PM EST): Assessment: tremors in right hand Glenohumeral arthritis, left10/26/2017OA (osteoarthritis) of knee07/01/2017 Primary osteoarthritis of right knee05/20/2017 Overview (05/20/2017): Added automatically from request for surgery [id number] Arthritis of knee04/27/2017Type 2 diabetes mellitus without complication, without long-term current use of vxfkiwt1004/15/2017 Assessment & Plan (04/24/2020 12:17 PM EDT): Assessment: Managed with oral med s/p gastric bypass Hemoglobin A1C (%) Date Value 10/18/2019 5.7 Chronic pain vnqqggep27/28/2017 Assessment & Plan (04/24/2020 12:14 PM EDT): Assessment: lower back pain s/p SCS 02/2018 Monitored by Pain Management ( 04/03/2020) COPD with chronic agijftdwxf79/28/2017 Assessment & Plan (04/24/2020 12:16 PM EDT): Assessment: Managed with inhalers No supplemental oxygen use RA 04/24/20 1148 SpO2: 97% Stable. Assessment & Plan (10/18/2019 12:33 PM EST): Assessment: Symbicort twice a day and Albuterol as needed Primary osteoarthritis of left knee01/28/2017Postlaminectomy dfqpajir12/12/2016 Hypertrophy of prostate with urinary obstruction and other lower urinary tract symptoms (LUTS)08/12/20109218Towioggmqir94/22/2010Frequency of pvrcudavr01/08/2010 Slow urinary wvfpwm2303/26/2010Impotence of organic hwdwxi5210/08/2007Malignant neoplasm of skin of lip05/11/2007 Assessment & Plan (10/18/2019 12:33 PM EST): Assessment: s/p removal Psychosexual dysfunction, qfzecbewnam92/13/2006Rotator cuff syndrome of shoulder and allied dxmyjzewz41/22/2005Spinal stenosis, lumbar region, without neurogenic uxxmbewqratr36/26/2004Displacement of cervical intervertebral disc without /30/2004Brachial neuritis or radiculitis NOS04/17/2004Spinal stenosis in cervical bhrtnb6803/06/2004Displacement of thoracic intervertebral disc without yozoletklx92/19/2004SPRAIN OF NECK ()03/06/2004Unspecified sleep apnea Overview (04/24/2020): Last us 2003, pt was 380 lbs at that time Assessment & Plan (04/24/2020 12:24 PM EDT): Assessment: Uses CPAP at home Resolved Problems ProblemNoted DateDiagnosed DateResolved DateUlcerative klsoew4112/07/2017 07/21/2019Glenohumeral zrinuwnhu76Urgency of urination SPRAIN OF NECK ()Brachial neuritis or jxqgzasibmd20Carpal tunnel Immunizations ImmunizationAdministration DatesNext Duehepatitis B (HepB) vaccine, 3-dose series, age 20+ yr (ENGERIX-B, RECOMBIVAX HB)08/16/2002,01/27/2002influenza (HD- IIV3) vaccine, age 65+ yr, high dose, trivalent, PF (FLUZONE HIGH-DOSE) 08/24/2019,08/12/2016influenza (IIV4) vaccine, age 6 mo - 64 yr, quadrivalent, PF (AFLURIA, FLUARIX, FLULAVAL, FLUZONE)07/01/2017,07/23/2015influenza (IIV4) vaccine, quadrivalent (AFLURIA, FLULAVAL, FLUZONE)07/17/2020,07/07/2018influenza vaccine, unspecified qmczzqzcyqm44/27/2010novel influenza (G3Y2-57) vaccine, PF 08/24/2009pneumococcal conjugate (PCV13) vaccine, 13 [...] medical care, and heating?Not very hard11/25/2022HQ-2AnswerDate RecordedPHQ-2 lbzjh49410/25/2020 Hunger Vital SignAnswerDate RecordedWithin the past 12 [...] number is lower riskNot on file09/23/2020Data from: https://www.neighborhoodatlas.medicine.[place] [facility].edu/. Last address used for calculationNot on file09/23/2020Sex and Gender InformationValueDate RecordedSex Assigned at BirthNot on fileLegal FxrJsee16/02/2012 9:51 AM ESTGender Identity Not on fileSexual OrientationNot on fileOccupationIndustryJob Start DateJob End DateRetiredNot on fileNot on fileNot on file Last Filed Vital Signs Vital SignReadingTime TakenCommentsBlood Blyejgub57/59012/06/2022 5:34 AM EST Afnpl9218/18/2023 9:08 AM FDXOdmotcwzmmk52.7 ??C (98.1 ??F)12/06/2022 5:34 AM ESTRespiratory Akuq542312/06/2022 9:08 AM ESTOxygen Rqgdqynmel927%12/06/2022 8:58 AM ESTInhaled Oxygen Concentration--Sojwuw45.2 kg (196 lb 10.4 oz)12/01/2022 6:00 AM NVJEqrpof476.8 cm (5' 10 )11/20/2022 12:53 PM ESTBody Mass Index28.22 11/20/2022 12:53 PM EST Plan of Treatment Health MaintenanceDue DateLast DoneCommentsAbdominal Aortic Aneurysm Screening 1958Dilated Retinal Exam1968Urine Albumin:Creatinine Ratio1968 Annual PCP Team Chronic Disease Visit1976Anxiety Hrvmcbwxk70/25/1976 Depression Zntzbliyz67/25/1976Hepatitis C Xcvmcdzmv60/25/1976CT Colonography 2003Cologuard (FIT-DNA)2003Fecal Occult Blood2003Prostate Cancer Screening Bafsymvmkb82/25/0906Cspbxcahofzyt55/25/2003Diabetic Foot Exam RSV Vaccine (1 - Risk 60-74 years 1-dose series)2018 Shingrix Vaccine (2 of 2)/12/20186089XjR1L39//04/2022, 04/24/2020, 10/18/2019, Additional history existsPneumococcal Vaccine: 50+ (3 of 3 - PCV20 or PCV21)4011/15/2018, 08/13/1995LDL Vxvodbguojx52/11/2024 11/29/2022, 11/20/2022dvance Directive Hocaqinhvg95/01/2025[facility] Annual Wellness Visit5Covid-19 Vaccine ( - season)2025 11/06/2021, 10/15/2021, 01/30/2021, Additional history existsInfluenza Vaccine (#1)/10/2021, 09/02/2022, 10/15/2021, Additional history exists Tbmpdplouiq97, 08/11/2016Colorectal Cancer Hvhhtlszt74/24/2026 DTaP,Tdap,Td Vaccine (3 - Td or Tdap), 10/22/2015 Medical Devices ImplantedTypeAreaManufacturerDevice IdentifierShelf Expiration DateModel / Serial / LotRestrictor 24mm Medium [place] Cement Revision Plug Hip - [id number] [facility] / PuttyLeft: Bone - KneeSTRY-HOWM RIDOQVHRXNN65/10/[id number] / / [id number] Simplex P Tobramycin Bone Full Dose Radiopaque Preblend Sterile - [id number] Implanted:Qty: 5 on 04/27/2017 at [facility] / PuttyLeft: Bone - KneeSTRY-[facility] GQXEIDMFBRX91/10/52757995-3-583 / / [id number] 30mm Large [place] Cement Revision Plug Hip - [id number] Implanted:Qty: 1 on 04/27/2017 at [facility] / PuttyLeft: Bone - KneeSTRY-[facility] DRVYJYJOFYW34//2276U593-4719 / / [id number] Simplex P Speedset Bone Radiopaque Sterile - [id number] [facility]:Q[facility] / PuttyLeft: Bone - ShoulderSTRY-[facility] TCUMQJIBIVU49/30/[id number] / / [id number]-Jqsk Implant - [id number] Implanted:Qty: 1 [facility]05/[facility]: RsokXGWAF04/31/2019 YWDE7432 / / [id number]:NEVRO JAZLYN. N300 LEAD ANCHOR KITHead Global Unite 52mm Standard 18mm Humeral - [id number] Implanted:Qty: 1 on 12/29/2017 [facility]: Bone - ShoulderJ&J DEPUY KREEXYFUFRR16/31/[id number] / / [id number] Rare/Endangered Species Specialist Kit Implanted:Qty: 1 on 03/16/2018 [facility]ImplantN/A: BackOTHER 05/14/20206684VEIW5037-83A / / [id number] V40 28mm -2.7mm Offset Taper Biolox Delta Femoral Hip - [id number] Implanted:11/08/2019 at [facility] (Quantity not on file)Joint - HipLeft: [facility] - [facility]SCH[facility] NAFWXRECEVI67/11/071019265525 / / [id number] 46mm F Cocr Acetabular Modular Dual Mobility Primary Hip - [id number] Implanted:11/08/2019 at [facility] (Quantity not on file)Joint - HipLeft: Bone - HipSTRYSAINT [facility] LUWHFJNPNGP62/11/90409694059R / / [id number] Adm Mobile Bearing Hip Yazidi 52mm 28mm 0d X3 8.9mm Acetabular - [id number] Implanted:11/08/2019 at [facility] (Quantity not on file)Joint - HipLeft: [facility] - HipSCHI [facility]AK[facility] CALMFCLKKMC57/11/271709995708 / / [id number] Adm Mobile Bearing Hip Yazidi 52mm 28mm 0d X3 8.9mm Acetabular - [id number] Implanted:05/03/2020 at [facility] (Quantity not on file)Joint - HipRight: [facility] ZEDXTOLKIGZ99/24/[id number] / / [id number] V40 28mm +4mm Offset Taper Biolox Delta Femoral Hip - [id number] Implanted:05/03/2020 at [facility] (Quantity not on file)Joint - HipRight: [facility] YMGJUTESAMW31/14/[id number] / / [id number] 46mm F Cocr Acetabular Modular Dual Mobility Primary Hip - [id number] Implanted:05/03/2020 at [facility] (Quantity not on file)Joint - HipRight: [facility] HipSCHI [facility]AKES [facility]PITAL EYCLZHMCABN14/04/92264950113T / / [id number] Triathlon 12mm Cocr 100mm Femoral Cemented Total Stabilized Knee - [id number] Implanted:Qty: 1 on 04/27/2017 at [facility] KneeLeft: Bone - Knee STRY-[facility] NVHNWFALEXG7482M523 / / [id number] Triathlon 15mm Cocr 50mm Femoral Cemented Total Stabilize Knee - [id number] Implanted:Qty: 1 on 04/27/2017 at [facility] KneeLeft: Bone - Knee [facility] VGTRQNZOHTD28/22/27720360S765 / / [id number] Triathlon 7 Cocr Femoral Total Stabilize Knee Left - [id number] Implanted:Qty: 1 on 04/27/2017 at [facility] KneeLeft: Bone - Knee [facility] DCZFGWNWSHM49/17/16300174W839 / / WTPLAugment Triathlon 7 5mm Femoral Total Stabilize Knee Posterior - [id number] Implanted:Qty: 1 on 04/27/2017 at [facility] KneeLeft: Bone - Knee STRY-HOW ARTCSTTLLSC39/06/72268375E364 / / [id number] Triathlon 7 5mm Femoral Total Stabilize Knee Left - [id number] Implanted:Qty: 1 on 04/27/2017 at [facility] KneeLeft: Bone - Knee STRY-HOW ATOQKPBCELU02/28/87731879T532 / / VDHUAugment Triathlon 7 5mm Femoral Total Stabilize Knee Left - [id number] Implanted:Qty: 1 on 04/27/2017 at [facility] KneeLeft: Bone - Knee STRY-HOW WRUGYYTLMHO69/01/14962092J702 / / MYMMAugment Triathlon 6 10mm Tibial Total Stabilize Right Medial Left Lateral - [id number] Implanted:Qty: 1 on 04/27/2017 at [facility] KneeLeft: Bone - Knee STRY-HOW VTRKSFWCHWD53/01/69372694R492 / / [id number] Triathlon 6 [place] Cocr Tibial Total Stabilize Cemented Knee - [id number] Implanted:Qty: 1 on 04/27/2017 at [facility] KneeLeft: Bone - Knee STRY-HOW NDNDRENLCSM10/24/03213865X148 / / [id number] Triathlon 6 10mm Tibial Total Stabilize Left Medial Right Lateral - [id number] Implanted:Qty: 1 on 04/27/2017 at [facility] KneeLeft: Bone - Knee STRY-HOW YYKVRHLKMGF32/20/70295943N000 / / [id number] Triathlon 6 X3 16mm Tibial Total Stabilize Plus Knee - [id number] Implanted:Qty: 1 on 04/27/2017 at [facility] KneeLeft: Bone - Knee STRY-HOW AAJEXRMHQBV78/02/36137704N754 / / [id number] Triathlon 7 Pa Femoral Cruciate Retain Bead Knee Right - [id number] Implanted:Qty: 1 on 07/01/2017 at [facility] KneeRight: Bone - KneeSTRY-HOW DNACDSKFLCZ22/10/24805598I091 / / [id number] Triathlon 6 X3 13mm Tibial Condylar Stabilized Knee - [id number] Implanted:Qty: 1 on 07/01/2017 at [facility] KneeRight: Bone - [facility]SCH[facility] UXKICASCQJT90/12/24923902R034 / / [id number] Triathlon 6 Tritanium 33c84ie Tibial 4 Cruciform Peg Keel Knee - [id number] Implanted:Qty: 1 on 07/01/2017 at [facility] JPOIAFAKFIF64/22/93776014-H-416 / / [id number] Tritanium 35mm Metal 10mm Patellar Asymmetric Knee - [id number] Implanted:Qty: 1 on 07/01/2017 at [facility]: Bone - [facility] QHJCFRPKRTH32/08/56734522-X-471 / / [id number] Triathlon 35mm 10mm Patellar Asymmetric Knee - [id number] Implanted:Qty: 1 on 04/27/2017 at [facility] PatellaLeft: Bone - KneeSCH[facility] TVKJZFZCEBM22/07/71680811A099 / / [id number] 48mm 7mm Humeral [place] Peg Left Glenoid - [id number] Implanted:Qty: 1 on 12/29/2017 at [facility] - ShoulderLeft: Bone - ShoulderJ&J DEPUY NJLQFSRLYRH61/31/7728997623634 / / [id number] Global Ap 12mm Porocoat 137mm Humeral Arthroplasty System Shoulder - [id number] Implanted:Qty: 1 on 12/29/2017 at [facility] - ShoulderLeft: Bone - ShoulderJ&J DEPUY EFQVELWATRD43/31/[id number] / / [id number] Global Ap 135d Taper Fix Shoulder Arthroplasty System - [id number] Implanted:Qty: 1 on 12/29/2017 at [facility] - ShoulderLeft: Bone - ShoulderJ&J DEPUY KDHUCNWVFMF27/31/[id number] / / [id number] Triath Tib Cone Sz A - [id number] Implanted:Qty: 1 on [facility]/27/2017 [facility] Bone - KneeSTRY- HOW YHAUWKLKYBG94/10/61775403-X-383 / / [id number] Accolade Ii 7 127d Femoral - [id number] Implanted:11/08/2019 at [facility] (Quantity not on file)JointLeft: Bone - HipSTRY-HOW GPWTMABTJWN79/12/71340818-0280 / / [id number] Trident Ii 56mm F Tritanium Acetabular 5 Screw Hole Cluster Sterile - [id number] Implanted:11/08/2019 at [facility] (Quantity not on file)JointLeft: Bone - HipSTRY-[facility] VKGJYEIFHVO49/12/6757199-74-10X / / [id number] Accolade Ii 7 127d Femoral - [id number] Implanted:05/03/2020 at [facility] (Quantity not on file)JointRight: Bone - HipSTRY-HOW EWPUBMHEGRZ86/15/97211220-7582 / / [id number] Trident Ii 56mm F Tritanium Acetabular 5 Screw Hole Cluster Sterile - [id number] Implanted:05/03/2020 at [facility] (Quantity not on file)JointRight: Bone - HipSTRY-[facility] MTPTINKYPBZ10/02/0571004-79-63Q / / [id number] 50cm Nevro - [id number] Implanted:Qty: 2 on 05/08/2016 at [facility]/01/07/20190935MQBE3069-80S / / [id number]:50Lead 50cm Nevro - [id number] Implanted:Qty: 1 [facility]05[facility] [facility] FfdeUYIPU42/30/2019 NYGP5261-23T / / [id number]:NEVRO BLUE PERC LEAD KITLead 50cm Nevro - [id number] Implanted:Qty: 1 on [facility]05/[address] 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) COLONOSCOPY - RGMFBQDPHUSgfqert01/24/2016 10:20 AM EDT Screening for colon cancer from Last 3 Months or Most Recently Relevant to Health Maintenance Results * (ABNORMAL) LIPID PANEL, NONFASTING (11/29/2022 2:31 AM EST)ComponentValueRef RangeTest MethodAnalysis TimePerformed AtPathologist SignatureTotal Cholesterol, Ogmqpacqyo01<200 mg/dL11/29/2022 10:30 PM [facility]: <200 mg/dL, Desirable 200-239 mg/dL, Borderline high >239 mg/dL, High Triglycerides, Kvjlmodvba397<150 mg/dL11/29/2022 10:30 PM [facility]Comment: <150 mg/dL, Normal 150-199 mg/dL, Borderline high 200-499 mg/dL, High >499 mg/dL, Very high HDL Cholesterol, Pfuwqrxroz26(L)>39 mg/dL11/29/2022 10:30 PM [facility]Comment: 40-59 mg/dL, Acceptable >59 mg/dL, High: Negative risk factor for coronary heart disease <40 mg/dL, Low: Positive risk factor for coronary heart disease LDL Cholesterol Calculated, Dzeifzonoq14<100 mg/dL11/29/2022 10:30 PM EST [facility]: <100 mg/dL, Optimal 100-129 mg/dL, Near optimal/above optimal 130-159 mg/dL, Borderline high 160-189 mg/dL, High >189 mg/dL, Very high Secondary prevention optimal LDL Cholesterol levels are recommended to be < 70 mg/dL Non HDL Cholesterol, Zmftdtveja04<130 mg/dL11/29/2022 10:30 PM [facility]Comment: <130 mg/dL, Optimal 130-159 mg/dL, Near optimal/above optimal 160-189 mg/dL, Borderline high 190-219 mg/dL, High >219 mg/dL, Very high Secondary prevention optimal non HDL Cholesterol levels are recommended to be <100 mg/dL VLDL Cholesterol, Avpjltrwtg55<30 mg/dL11/29/2022 10:30 PM [facility] LABTotal Chol/HDL Ratio, Nonfasting5.27(H)<5.10 mg/dL11/29/2022 10:30 PM [facility] LABLDL/HDL Ratio, Nonfasting2.73(H) <2.54 mg/dL11/29/2022 10:30 PM [facility] LABComment: Reference: 1. National Cholesterol Education Program ATP III Guideline At-A-Glance Quick Desk Reference: National Heart, Lung, and Blood [place]. National Institutes of Health. 2001: NIH Publication [...] Pablo Harris MDLABORATORYFinal ResultPerforming OrganizationAddressCity/State/ZIP CodePhone Number [facility] [address] [place] [address], * HGB A1C (04/24/2020 1:03 PM EDT)ComponentValueRef RangeTest MethodAnalysis TimePerformed AtPathologist SignatureHemoglobin A1C5.64.3 - 5.6 %04/24/2020 1:36 PM [facility]Estimated Average Qsnlscv168fw/dL 04/24/2020 1:36 PM EDTSBro[facility] ([facility])Comment: eAG: (Estimated average glucose) is a calculated value from HgbA1c and is patient accounting representative of the average blood glucose level in the last 2-3 month period. Specimen (Source)Anatomical Location / LateralityCollection Method / Volume Collection TimeReceived TimeBlood specimen (specimen)WHOLE BLOOD SPECIMEN / Snighus5004/24/2020 1:03 PM EDT04/24/2020 1:05 PM EDT Narrative Authorizing ProviderResult TypeResult StatusJoseph Rayray Guevara Jr., MDLABORATORY Final ResultPerforming OrganizationAddressCity/State/[facility] CodePhone Number [facility] [address] [place] [address] [facility] [address] [facility]. [facility], [address] * COLONOSCOPY - DIAGNOSTIC (08/11/2016 10:20 AM EDT)ComponentValueRef RangeTest MethodAnalysis TimePerformed AtPathologist OmjvjghqcGvkfuhrmfnykyM37 Gastrointestinal Endoscopy Patient Name: Jamarcus García Procedure [...] Most Recently Relevant to Health Maintenance Insurance [facility] Address: [address] [place] [address] Advance Directives * DNR-CC (Latest Code Status on File) Date ActivatedDate InactivatedComments12/03/2022 3:20 PM2 7:51 PMQuestion AnswerCommentsDNR Order Discussed With:* Patient * DNR-CCA Date ActivatedDate InactivatedComments12/01/2022 2:02 PM2 3:20 PMQuestion AnswerCommentsDNR Order Discussed With:* Patient * Full Code Date ActivatedDate InactivatedComments11/20/2022 6:26 PM2 2:01 PMQuestion AnswerCommentsFull Code Order Discussed With:* Patient Care Teams Team MemberRelationshipSpecialtyStart DateEnd Date Jaden Crabtree [address] [place] [id number] [facility] - General06/10/02
--- OUTSIDE RECORDS SUMMARY | 2025-09-01 09:39 | XMS_ITS ---
Author Organization [facility] Address [address] [place] [id number] Care Team Providers Care Pediatric Oncology Nurse Name Role Phone Jaden Crabtree Primary Care Provider [phone] Active Problems Patient Care Coordination No te [...] BPH, GERD, T2DM, who was admitted to [facility] on 11/20 from the ED for [...] Events Past 24: Accepted for transfer to [facility], however had episode of bradycardia to30s [...] - Psych consulted, appreciate recs - Continue BOAT HAND Cymbalta, Lyrica, Topamax - Continue Mirtazapine - [...] stage Irritant contact dermatitis due to fecal nirpmdxdthgf75/06/2023Wound eschar of foot11/24/2022 Overview (11/24/2022): Right and left toes Pressure injury of left foot, /06/2023 Overview (11/24/2022): Lateral foot Severe protein-calorie aoatbgxfwspm20/03/2023At risk for lrnzefaq08/03/2023 COVID-19 virus yofubvani62/02/2023Generalized oafmdfgc82/02/1266Hrlz16/02/2023 History of fusion of cervical spine1Right foot drop08/29/2020Falls okzcalavgo25/11/2020Multifactorial gait yxbtyshd39/11/2020Spinal stenosis of lumbar wzvesu8108/29/2020Orthostatic qpgcwwbaius68/11/2020Near oszzwuv8308/29/2020 Spinal stenosis of cervical zhbeze1708/29/2020Osteoarthritis of right hip 05/03/2020Acute cystitis without nxofztdnq02/10/2020 Assessment & Plan (04/27/2020 12:47 PM EDT): Assessment: per Urine Culture result. Pt. treated per susceptibility report and notified. Pt. reports he has tolerated Bactrim before ( 10/2019) Tobacco use04/24/2020 Assessment & Plan (04/24/2020 12:23 PM EDT): Assessment: 60 pack years Currently 1/2 pack day since 01/2020 Cessation with strategies encouraged. Megaloblastic anemia due to vitamin B12 dwxfsxqzit96/13/2020Osteoarthritis of left hip11/08/2019Open wound of left heel11/08/2019PD (Parkinson's disease) 04/13/2019 Assessment & Plan (04/24/2020 12:22 PM EDT): Assessment: Managed with med Monitored by Neurology Stable at baseline per Pt. report Assessment & Plan (10/18/2019 12:32 PM EST): Assessment: Sinemet 4 times a day to use morning of surgery Dffqprxht89/26/2019Psychosis due to Parkinson's wqliiil6904/13/2019MGUS (monoclonal gammopathy of unknown significance)09/15/2018Spinal cord stimulator rkjjro9109/07/2018 Assessment & Plan (04/24/2020 12:25 PM EDT): Assessment: for LBP generator in right hip Aware to bring remote on DOS Assessment & Plan (10/18/2019 12:34 PM EST): Assessment: Spinal cord stimulator in place to bring remote day of surgery Complete tear of right rotator cuff08/02/2018Iron deficiency anemia secondary to inadequate dietary iron ahsvgf9206/16/2018Multilevel spine pain06/02/2018Nicotine use disorder, F17. Assessment & Plan (10/18/2019 12:32 PM EST): Assessment: Current Smoker Obesity, Class I, BMI 30-34.9003/17/2018CRPS (complex regional pain syndrome type I)03/16/2018Status post replacement of left shoulder joint02/08/2018Shoulder mwahebcrj16/13/2368Pxurhx64/19/2018Diabetes /19/2018 Assessment & Plan (10/18/2019 12:33 PM EST): Assessment: stable on oral medication Hemoglobin A1C (%) Date Value 05/18/2018 5.9 06/17/2017 5.3 Essential lefqlvxfafll52/19/2018 Assessment & Plan (04/24/2020 12:15 PM EDT): Assessment: Medication for Control. Date: BP: 04/24/2020 115/80 Stable. Seardwalyssigf28/ Assessment & Plan (10/18/2019 12:32 PM EST): Assessment: stable on medication Essential aozwla1410/27/2017 Assessment & Plan (04/24/2020 12:14 PM EDT): Assessment: right hand Assessment & Plan (10/18/2019 12:32 PM EST): Assessment: tremors in right hand Glenohumeral arthritis, left10/26/2017OA (osteoarthritis) of knee07/01/2017 Primary osteoarthritis of right knee05/20/2017 Overview (05/20/2017): Added automatically from request for surgery [id number] Arthritis of knee04/27/2017Type 2 diabetes mellitus without complication, without long-term current use of yfgszdq0504/15/2017 Assessment & Plan (04/24/2020 12:17 PM EDT): Assessment: Managed with oral med s/p gastric bypass Hemoglobin A1C (%) Date Value 10/18/2019 5.7 Chronic pain wdiqsraf71/28/2017 Assessment & Plan (04/24/2020 12:14 PM EDT): Assessment: lower back pain s/p SCS 02/2018 Monitored by Pain Management ( 04/03/2020) COPD with chronic ezyddvuqxk35/28/2017 Assessment & Plan (04/24/2020 12:16 PM EDT): Assessment: Managed with inhalers No supplemental oxygen use RA 04/24/20 1148 SpO2: 97% Stable. Assessment & Plan (10/18/2019 12:33 PM EST): Assessment: Symbicort twice a day and Albuterol as needed Primary osteoarthritis of left knee01/28/2017Postlaminectomy ytxticzk56/12/2016 Hypertrophy of prostate with urinary obstruction and other lower urinary tract symptoms (LUTS)08/12/20106195Csehzzwncja12/22/2010Frequency of yxkkbuyfq02/08/2010 Slow urinary nmlmct0903/26/2010Impotence of organic uhvcwa2610/08/2007Malignant neoplasm of skin of lip05/11/2007 Assessment & Plan (10/18/2019 12:33 PM EST): Assessment: s/p removal Psychosexual dysfunction, pofcjlxrmlj49/13/2006Rotator cuff syndrome of shoulder and allied krwoqgdzv57/22/2005Spinal stenosis, lumbar region, without neurogenic zuxlmqavjbba76/26/2004Displacement of cervical intervertebral disc without hqwjdjawwd80/30/2004Brachial neuritis or radiculitis NOS04/17/2004Spinal stenosis in cervical wdermw7203/06/2004Displacement of thoracic intervertebral disc without nwmcjejlhz37/19/2004SPRAIN OF NECK ()03/06/2004Unspecified sleep apnea Overview (04/24/2020): Last us 2003, pt was 380 lbs at that time Assessment & Plan (04/24/2020 12:24 PM EDT): Assessment: Uses CPAP at home Current Treatment and Therapy Plans No current plan information found. Past Treatment and Therapy Plans Resolved Problems ProblemNoted DateDiagnosed DateResolved DateUlcerative lawkmk4612/07/2017 07/21/2019Glenohumeral kwoinfbkq59Urgency of urination SPRAIN OF NECK ()Brachial neuritis or fvulvidxlte28Carpal tunnel
--- OUTSIDE RECORDS SUMMARY | 2025-09-01 09:39 | XMS_ITS | Clinical Summary ---
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 Name Role Phone MichiJaden guzmán Primary Care Provider [phone] Bhupendra Painter MD Unavailable Allergies Active AllergyReactionsCriticalityNoted DateCommentsCelecoxibGI intolerance, Hives,Rash,GwzunssTins83/17/2017 Other reaction(s): GI Upset, Unknown ClonazepamItching,Shortness of breath,CmgwbdsYnul80/17/2017ErythromycinItching, Nausea And Vomiting,Nausea Only,JuzifftTxx88/01/2021 Other reaction(s): Unknown Erythromycin BaseHives,Shortness of vefuswSkyf59/19/2004LevofloxacinHives, Shortness of breath,KoltqqdRafr69/13/2010 Other reaction(s): Unknown MoxifloxacinHives,Itching,Rash,Shortness of breath,PlpwcOhdg44/02/2006 OjowbscgirjgVsqjz78/05/2020 Medications MedicationSigDispense QuantityRefillsLast FilledStart DateEnd DateStatus carbidopa-levodopa [...] by mouth if needed each day (constipation).Active muyqcym-ddfimuoewzytj-stcrijjj (Excedrin Migraine) 250-250-65 mg tablet Take 2 [...] not crush or chew. 30 capsule tive Active Problems ProblemNoted DateDiagnosed UtdgFuqrx48/28/5744Dezbrrzaatu73/28/2025Marginal ulcer06/15/2025ftercare following surgery of the musculoskeletal system 04/25/20251687Ydgufc85/08/9873Ctlwbbj57/08/2025PH with urinary obstruction 04/25/2025hest pain04/25/2025Degeneration of intervertebral disc of cervical fyyspt2004/25/2025Degeneration of intervertebral disc of lumbosacral region 04/25/20250443Xbqjezttkd18/08/2025owel zwpgyqubgqmy80/08/2025Incontinence without sensory xoonmdedj93/08/2025Iron deficiency cezbiw9504/25/2025Kidney stones 04/25/2025Other forms of scoliosis, site pwordfalewz31/08/2025Recurrent UTI 04/25/2025Sciatica, left side04/25/2025History of xzvflhlpyvf37/08/2025Urinary ezqjzwxei60/08/2025UTI epqmhbub14/08/2025Sinus pause04/25/2025Second degree heart block by electrocardiogram (ECG)04/14/2025 Overview (04/14/2025): On event monitor Pause of 3 .58 seconds 10:30am Open wound of left great toe03/16/2025 Overview (04/25/2025): PVR with toe pressures Critical limb ischemia of both lower extremities with rfigjxtx38/11/2024 Overview (04/25/2025): Bilateral toe wounds nonhealing, no PVR or testing Encounter for abdominal aortic aneurysm (AAA) uaiizkfqg69/11/2024cute kidney qtsxea8908/20/2023Irritant contact dermatitis due to fecal mncazljwntjd10/06/2023 Pressure injury of coccygeal region, stage ressure injury of left foot, acfvxtzvorn52/06/2023 Overview (04/25/2025): Lateral foot Wound eschar of foot11/24/2022 Overview (04/25/2025): Right and left toes At risk for upwjfmzt07/03/2023Severe protein-calorie bpjlmklxfjby35/03/2023 COVID-19 virus yufvtbecw17/02/6257Fzoi99/02/2023eneralized fhxwsokp87/02/2023 Testicular shqwwcctsiix39/21/2022Lumbar stenosis with neurogenic claudication 2Coronary wlgpcnqoofvfotn03/14/2022History of fusion of cervical spine 10/10/2021hy-Drager jvsootyf99/28/2021Walking difficulty due to ankle and foot 02/08/2021Falls rinlkhrzeu10/11/2020Orthostatic xwloasaycrx86/11/2020 Multifactorial gait hsiktptk75/11/2020Near zoaqnau7408/29/2020Right foot drop 08/29/2020Acute cystitis without xsrclqxum18/10/2020Tobacco use04/24/2020 Overview (04/25/2025): Last Assessment & Plan: Assessment: 60 pack years Currently 1/2 pack day since 01/2020 Cessation with strategies encouraged. Open wound of left heel11/08/2019Osteoarthritis of left hip11/08/2019Dysphagia 04/13/2019Psychosis due to Parkinson's yxalhiy4204/13/2019MGUS (monoclonal gammopathy of unknown significance)09/15/2018Spinal cord stimulator status 09/07/2018 Overview (04/25/2025): Last Assessment & Plan: Assessment: for LBP generator in right hip Aware to bring remote on DOS Complete tear of right rotator cuff08/02/2018Iron deficiency anemia secondary to inadequate dietary iron tbdvnc7206/16/2018Nicotine use /30/2018Obesity, Class I, BMI 30-34.9003/17/2018CRPS (complex regional pain syndrome type I) 03/16/2018Shoulder nkeivbhrr80/13/2018Essential ddrybdwhtuys76/19/2018 Overview (03/20/2025): Last Assessment & Plan: Assessment: Medication for Control. Date: BP: 04/24/2020 115/80 Stable. Ymlssk1912/07/20176564Gjvkrscwywiduo65/19/2018 Overview (04/25/2025): Last Assessment & Plan: Assessment: stable on medication Essential efynbl3610/27/2017Glenohumeral arthritis, left10/26/2017Arthritis of knee04/27/2017COPD with chronic /28/2017 Overview (03/20/2025): Last Assessment & Plan: Assessment: Managed with inhalers No supplemental oxygen use RA 04/24/20 1148 SpO2: 97% Stable. Type 2 diabetes mefvkivz98/28/2017Chronic pain /28/2017 Overview (04/25/2025): Last Assessment & Plan: Assessment: lower back pain s/p SCS 02/2018 Monitored by Pain Management ( 04/03/2020) Postlaminectomy syndrome of lumbar dxuhiq9606/30/20166733Nciygagndrd12/22/2010 Frequency of xkinpctrb69/08/2010Slow urinary dhrquw7403/26/2010Impotence of organic futhky0210/08/2007Malignant neoplasm of skin of lip05/11/2007 Overview (04/25/2025): Last Assessment & Plan: Assessment: s/p removal Psychosexual dysfunction, ntouwnjdeun27/13/2006Urinary zajvkxg1307/31/2006Brachial neuritis or skcmjvdfqei85/30/2004Displacement of cervical intervertebral disc without ppncimuuon21/30/2004Displacement of thoracic intervertebral disc without apkqieqzaw42/19/2004 Encounters DateTypeDepartmentCare HagyGgzmfapgcbb62/04/2025 11:00 AM ESTAncillary Procedure [facility] [address] [place] [address] Encounter for checking and testing of cardiac pacemaker pulse generator (battery)07/25/2025 3:30 PM EDTAncillary Procedure [facility] [address] [place] [address] Encounter for implantable defibrillator reprogramming or check07/18/2025Orders Only [facility] [address] [place] [address] Antonio Lim MD 07/07/2025Telephone [facility] Surgery Clinic [address] [place], [place] [address] [address] Santa Bean MA 07/06/2025 11:50 AM EDTAncsp[facility] Procedure [facility] [address] [place], [place] [address] [address] Adjustment and management of cardiac /18/2025 10:05 AM EDTLab [facility] Outpatient Draw Station [address] [place] [address] Obesity due to excess calories with serious comorbidity, unspecified class; Unintended weight loss; Iron deficiency anemia, unspecified iron deficiency anemia type; Vitamin D deficiency; Hyperglycemia; Other chronic pain; Chronic gastric ulcer with pohtmmrrwg75/18/2025 9:30 AM EDTOffice Visit [facility] Surgery Clinic [address] [place] [address] Roberth Cowan MD Chronic gastric ulcer with hemorrhage (Primary Dx); Obesity due to excess calories with serious comorbidity, unspecified class; Unintended weight loss; Iron deficiency anemia, unspecified iron deficiency anemia type; Vitamin D deficiency; Other chronic pain; Wbynjqmjglaxp21/03/2025Telephone [facility] [address] [facility] [place] [address] Jennifer Sanchez LPN 06/16/2025 8:19 PM EDTAnesthesia Event [facility] Main Operating Room [address] [place] [address] Mohamud Wagner MD Meisler, Adam, MD 06/16/2025 8:00 PM EDT - 06/16/2025 9:45 PM EDTSurgery [facility] Main Operating Room [address] [place] [address] Roberth Cowan MD DIAGNOSTIC LAPAROSCOPY CONVERTED TO OPEN [[id number] (CPT??)]06/16/2025 5:06 PM EDT Anesthesia Event [facility] Main Operating Room [address] [place] [address] Cara Mcclure MD Altenhof, Brent M., MD 06/16/20250549Fnvbif24/28/2025 4:06 PM EDTAnesthesia Event [facility] Main Operating Room [address] [place] [address] Leda Pitts MD Swanson, Megan R, CAA 06/15/2025 3:45 PM EDT - 06/15/2025 5:15 PM EDTSurgery [facility] Main Operating Room [address] [place] [address] Rosaura Juarez MD SELECTIVE CATHETERIZATION AND ANGIOGRAM OF CELIAC AND SMA - ABDOMINAL ANGIOGRAM [[id number] (CPT??)]06/15/2025 5:32 AM EDT - 06/28/2025 12:24 PM EDTHospital Encounter [facility] 5ABCD Surgery Stepdown [address] [place] [address] Luciano Woodard MD Cherry-Bukowiec, Jill, MD Hsu, Justin, MD Rehman, Shahnaz, MD Shock (CMS/HCC) (Primary Dx); Hematemesis, unspecified whether nausea present; Marginal ulcer; Arthritis of knee; Arthritis; Urinary tract infection without hematuria, site unspecified Discharge Disposition: Inpatient Rehab Hospital (62)06/15/20256476Dokjov89/25/2025 2:40 PM EDTFollow-Up [place] [address] [place] [address] Jac Tidwell, NATHEN Encounter for postoperative wound check (Primary Dx); Sinus pause; Syncope and collapse; S/P placement of cardiac orubokwhw09/19/2025Orders Only [facility] [address] [place] [address] ProviderJameson MD 06/05/2025 1:00 PM EDT - 06/05/2025 2:00 PM EDTSurgery [facility] [address] [place] [address] Antonio Lim MD Implant PPM [[id number]]06/05/2025 11:10 AM EDT - 06/05/2025 5:48 PM EDTHospital Encounter [facility] [address] [place] [address] Antonio Lim MD UTI symptoms (Primary Dx); Sinus pause; Shoulder arthritis Discharge Disposition: Home or Self Care (01)06/05/2025Orders Only [facility] [address] [place] [address] Vanessa Vu RN Presence of cardiac pacemaker (Primary Dx)06/05/20252376Peagfr54/15/2025Telephone [address] [address] Osiris Owens MA from Last 3 Months Family History Medical HistoryRelationNameCommentsCancerBrother 1Dale Weyer jrCancerBrother 2 Sonny Primoparas jrDiabetes type IIFatherDale WeyerHypertensionFatherDale WeyerHeart attackMaternal GrandfatherAsthmaMotherBettWeyerDepressionMotherBettWeyer HypertensionMotherBettWeyerHypotensionMotherBettWeyerKidney diseaseMother BettWeyerHeart attackMother's BrotherRelationNameStatusCommentsBrother 1Dale Weyer jrAliveBrother 2Dale Weyer jrAliveFatherDale WeyerAliveMaternal GrandfatherMotherBettWeyerAliveMother's Brother Social History Tobacco UseTypesPacks/DayYears UsedDateSmoking Tobacco: HvltxmIrqzpnxdma836.6 01/13/1978 - 08/19/2022mokeless Tobacco: NeverAlcohol UseStandard Drinks/Week CommentsNever0 (1 standard drink = 0.6 oz pure alcohol)[facility] UtilitiesAnswerDate RecordedIn the past 12 months has the [employer], gas, oil, or water [employer] threatened to shut off services in your [...] heating?Not hard at all06/15/2025PHQ-2AnswerDate RecordedPatient Health Questionnaire-2 Ssbgv009TransportationAnswerDate RecordedIn the past 12 months, has lack [...] were you homeless or living in a nursing home (including now)?No06/15/2025Hunger Vital SignAnswerDate RecordedWithin the past 12 months, you worried that your food would run out before you got the money to buymore. Never true06/15/2025Ran Out of Food in the Last YearNot on file06/15/2025Sex and Gender InformationValueDate RecordedSex Assigned at BirthNot on fileLegal Sex Male04/16/2022 10:07 PM EDTGender IdentityChoose not to rjknduya83/18/2025 11:10 AM EDTSexual OrientationChoose not to /18/2025 11:10 AM EDT Last Filed Vital Signs Vital SignReadingTime TakenCommentsBlood Neknxrsa394/70007/06/2025 9:13 AM EDT Vykph634207/06/2025 9:13 AM FSBQoggbywnsyq54.5 ??C (97.7 ??F)07/06/2025 9:13 AM EDTRespiratory Djxy767106/28/2025 11:35 AM EDTOxygen Cudbwucnpx72%07/06/2025 9:13 AM EDTInhaled Oxygen Concentration--Duvvqp251 kg (246 lb 14.6 oz)06/28/2025 4:18 AM YGMNvayvb902.8 cm (5' 10 )07/06/2025 9:13 AM EDTBody Mass Index35.43 06/15/2025 6:12 AM EDT Plan of Treatment DateTypeDepartmentCare Team (Latest Contact Info)Iltntwbwvgn50/20/2025 1:30 PM ESTFollow-Up [facility] Surgery Clinic [address] [place] [address] Roberth Cowan MD [address] [place] [address] Health MaintenanceDue DateLast DoneCommentsCT Qhqeodffzmfh1958Diabetes: Hemoglobin A1C1958FIT-DNA1958FIT1958FOBT1958Medicare Annual Wellness (AWV)1958 4165Gdwjvmrfqaurj1958Diabetes: Retinopathy Xxmsxiekb42/25/1968Diabetes: Urine Protein Xdjhrqnxm45/25/1977Zoster Vaccines (2 of 2)/12/2018COVID-19 Vaccine (4 - season)2025 10/15/2021, 01/09/2021, 12/13/2020Influenza Vaccine (#1)502/12/2024, 11/10/2023, 09/18/2022, Additional history existsDepression Ggzmifwec60/18/2026 07/06/2025Fall Risk Subiugzrk37/1698Qcmmnatamjr08 Colorectal Cancer Eyxqhllrs75/24/2026Pneumococcal Vaccine: 50+ Years (3 of 3 - PCV20 or PCV21)/12/2022, 11/15/2018, 08/13/1995Adult Tetanus , 10/22/2015HIB VaccinesAged OutNo longer eligible based on patient's age to complete this topicHPV VaccinesAged OutNo longer eligible based on patient's age to complete this topicIPV VaccinesAged OutNo longer eligible based on patient's age to complete this topicMeningococcal B VaccineAged OutNo longer eligible based on patient's age to complete this topicMeningococcal VaccineAged OutNo longer eligible based on patient's age to complete this topic Rotavirus VaccinesAged OutNo longer eligible based on patient's age to complete this topic Medical Devices ImplantedTypeAreaManufacturerDevice IdentifierShelf Expiration DateModel / Serial / [employer] S 60 - [id number] - [id number] Implanted:Qty: 1 on 06/05/2025 [facility]: [id number] / [id number] / Description:[employer] S 53 - [id number] - [id number] Implanted:Qty: 1 on 06/05/2025 by [facility]: [id number] / [id number] / Pacemaker,Becky Quijano Marquita - [id number] - [id number] Implanted:Qty: 1 on 06/05/2025 by [facility]: [id number] / [id number] / Procedures Procedure NamePriorityDate/TimeAssociated DiagnosisCommentsCARDIAC DEVICE CHECK - IN CLINIC - PACEMAKER DUAL CHAMBER W/ KQYERntltny59/07/2025 10:58 AM EST Encounter for checking and testing of cardiac pacemaker pulse generator (battery) CARDIAC DEVICE CHECK - IN CLINIC - PACEMAKER DUAL CHAMBER W/ PROGRoutine 07/26/2025 4:13 PM EDT Encounter for implantable defibrillator reprogramming or check CARDIAC DEVICE CHECK CHECK - XGJWLSPqmzqpw35/02/2025 2:47 PM EDT Adjustment and management of cardiac pacemaker CARDIAC DEVICE CHECK - REMOTE - GACXMXHQMUrbzxws17/30/2025 12:00 AM EDTCBC WITH AUTO LCODEINHBTWAMxancgc40/18/2025 10:09 AM EDT Obesity due to excess calories with serious comorbidity, unspecified class Unintended weight loss Iron deficiency anemia, unspecified iron deficiency anemia type Vitamin D deficiency Other chronic pain Hyperglycemia WTTANAHFUXPyujtte37/18/2025 10:09 AM EDT Obesity due to excess calories with serious comorbidity, unspecified class Chronic gastric ulcer with hemorrhage XOOIPZJUAYcczxwh79/18/2025 10:09 AM EDT Obesity due to excess calories with serious comorbidity, unspecified class Chronic gastric ulcer with hemorrhage IRON AND XVXVMeoddyj75/18/2025 10:09 AM EDT Obesity due to excess calories with serious comorbidity, unspecified class Unintended weight loss Iron deficiency anemia, unspecified iron deficiency anemia type Vitamin D deficiency FOLATE LSUBuerxww26/18/2025 10:09 AM EDT Obesity due to excess calories with serious comorbidity, unspecified class Unintended weight loss Iron deficiency anemia, unspecified iron deficiency anemia type Vitamin D deficiency RHIIVBEOJaayaay40/18/2025 10:09 AM EDT Obesity due to excess calories with serious comorbidity, unspecified class Unintended weight loss Iron deficiency anemia, unspecified iron deficiency anemia type Vitamin D deficiency COPPER, QXZPUAdcbjtp11/18/2025 10:09 AM EDT Obesity due to excess calories with serious comorbidity, unspecified class Unintended weight loss Iron deficiency anemia, unspecified iron deficiency anemia type Vitamin D deficiency COMPREHENSIVE METABOLIC DXIYNVztyinf82/18/2025 10:09 AM EDT Obesity due to excess calories with serious comorbidity, unspecified class Unintended weight loss Iron deficiency anemia, unspecified iron deficiency anemia type Vitamin D deficiency Other chronic pain Hyperglycemia HNGYOxwcvky20/18/2025 10:09 AM EDT Obesity due to excess calories with serious comorbidity, unspecified class Unintended weight loss Iron deficiency anemia, unspecified iron deficiency anemia type Vitamin D deficiency CBC AND HLATBZSUBMEEIpgfqel88/18/2025 10:09 AM EDT Obesity due to excess calories with serious comorbidity, unspecified class Unintended weight loss Iron deficiency anemia, unspecified iron deficiency anemia type Vitamin D deficiency Other chronic pain Hyperglycemia VITAMIN D 25 SRNIOREKhcdlbx44/18/2025 10:09 AM EDT Obesity due to excess calories with serious comorbidity, unspecified class Unintended weight loss Iron deficiency anemia, unspecified iron deficiency anemia type Vitamin D deficiency VITAMIN B1Wkapgoj24/18/2025 10:09 AM EDT Obesity due to excess calories with serious comorbidity, unspecified class Unintended weight loss Iron deficiency anemia, unspecified iron deficiency anemia type Vitamin D deficiency VITAMIN W14Vsgwkar75/18/2025 10:09 AM EDT Obesity due to excess calories with serious comorbidity, unspecified class Unintended weight loss Iron deficiency anemia, unspecified iron deficiency anemia type Vitamin D deficiency VITAMIN G1Xwwfzzl55/18/2025 10:09 AM EDT Obesity due to excess calories with serious comorbidity, unspecified class Unintended weight loss Iron deficiency anemia, unspecified iron deficiency anemia type Vitamin D deficiency VITAMIN VZlavkhr64/18/2025 10:09 AM EDT Obesity due to excess calories with serious comorbidity, unspecified class Unintended weight loss Iron deficiency anemia, unspecified iron deficiency anemia type Vitamin D deficiency LPGTsbctmb90/18/2025 10:09 AM EDT Obesity due to excess calories with serious comorbidity, unspecified class Unintended weight loss Iron deficiency anemia, unspecified iron deficiency anemia type Vitamin D deficiency Hyperglycemia NIACIN (VITAMIN B3)Drplrjp5007/06/2025 10:09 AM EDT Obesity due to excess calories with serious comorbidity, unspecified class Unintended weight loss Iron deficiency anemia, unspecified iron deficiency anemia type Vitamin D deficiency VITAMIN S7Opdinlj48/18/2025 10:09 AM EDT Obesity due to excess calories with serious comorbidity, unspecified class Unintended weight loss Iron deficiency anemia, unspecified iron deficiency anemia type Vitamin D deficiency POCT GLUCOSE METER UNSOLICITED KVOAEGICulvlnr72/10/2025 11:32 AM EDT POCT GLUCOSE METER UNSOLICITED BXKZCMEMyylqeg94/10/2025 5:05 AM EDT CBC WITH AUTO ZJXITKMFQYCTMqafvxe89/10/2025 3:22 AM EDT BASIC METABOLIC FQPWQTysasza12/10/2025 3:22 AM EDT QEJKKOHATKUrxbcye31/10/2025 3:22 AM EDT HMUVNZOSLUzjpfhy19/10/2025 3:22 AM EDT CBC AND VGKQUJXFAYQDFwsnlhb80/10/2025 3:22 AM EDT POCT GLUCOSE METER UNSOLICITED XDMHMWELvxloyz98/09/2025 10:57 PM EDT POCT GLUCOSE METER UNSOLICITED URNHEQYXwsetdd66/09/2025 5:21 PM EDT POCT GLUCOSE METER UNSOLICITED LHRZJZGLpuxcye33/09/2025 11:28 AM EDT RESPIRATORY ASSESS AND TREAT WZTKBCWTVximogy64/09/2025 8:00 AM EDTPOCT GLUCOSE METER UNSOLICITED HPJIKZADsurdvw71/09/2025 6:53 AM EDT POCT GLUCOSE METER UNSOLICITED DLQDMSKAxrjppq44/09/2025 6:00 AM EDT CBC WITH AUTO KWPNCLHIEDQPEspeina83/09/2025 3:37 AM EDT BASIC METABOLIC PUTAKAlcugej49/09/2025 3:37 AM EDT UJIVYAPRLFIlwuyij91/09/2025 3:37 AM EDT RKQPXSNLMOwmdtdz55/09/2025 3:37 AM EDT CBC AND AWHDPLMNTAKKXfmgsdd91/09/2025 3:37 AM EDT POCT GLUCOSE METER UNSOLICITED QBGQMZVMkfvzbe73/08/2025 11:18 PM EDT POCT GLUCOSE METER UNSOLICITED LVFKGZQSfwices28/08/2025 5:55 PM EDT POCT GLUCOSE METER UNSOLICITED NADFOVCMoiagob72/08/2025 11:43 AM EDT VASC US LOWER EXTREMITY VENOUS DUPLEX UDWKOLAWKQEVW12/08/2025 10:40 AM EDT RESPIRATORY ASSESS AND TREAT PKQKLRVDNpwuhlj58/08/2025 8:00 AM EDTPOCT GLUCOSE METER UNSOLICITED JCEXBYFCrumwag90/08/2025 5:25 AM EDT CBC WITH AUTO TLPACMMQRTMZRlkpcah57/08/2025 3:25 AM EDT BASIC METABOLIC FBUSPNuqwaha88/08/2025 3:25 AM EDT AEGVJDQZKRRswzlur78/08/2025 3:25 AM EDT RHQEANAMZDepacko17/08/2025 3:25 AM EDT CBC AND VRDDJIYLHNDNNuxhfve38/08/2025 3:25 AM EDT POCT GLUCOSE METER UNSOLICITED YWCJSEEZwzhgpz20/07/2025 11:38 PM EDT POCT GLUCOSE METER UNSOLICITED NWMYQTENgiivzt05/07/2025 5:29 PM EDT POCT GLUCOSE METER UNSOLICITED KOFQCPRWvvyuid77/07/2025 12:27 PM EDT POCT GLUCOSE METER UNSOLICITED NKNYXPHUspisam51/07/2025 10:08 AM EDT RESPIRATORY ASSESS AND TREAT JRQNIQJWKeomffr73/07/2025 8:00 AM EDTPOCT GLUCOSE METER UNSOLICITED FULMSKSHvxnynx88/07/2025 6:00 AM EDT BASIC METABOLIC TCXCVAajqduq20/07/2025 4:29 AM EDT CBC WITH AUTO XTYPMMMMYTZTVphcmuo65/07/2025 4:29 AM EDT NXHVLEKKGWXieaayi90/07/2025 4:29 AM EDT ELLNCGVZQKohkbjm63/07/2025 4:29 AM EDT CBC AND NBGQXXRUAUMHZqxyxfw26/07/2025 4:29 AM EDT POCT GLUCOSE METER UNSOLICITED FMMWHAXRjddlue71/06/2025 5:14 PM EDT POCT GLUCOSE METER UNSOLICITED OVJIXCZAsqcwgl98/06/2025 2:41 PM EDT POCT GLUCOSE METER UNSOLICITED OETJGNSYpftnla78/06/2025 11:24 AM EDT RESPIRATORY ASSESS AND TREAT XPHXWYZIDhfhndd75/06/2025 8:00 AM EDTPOCT GLUCOSE METER UNSOLICITED ZFUYEZEQoieygp42/06/2025 5:53 AM EDT CBC WITH AUTO MEPLUZPUGSDOLimlism47/06/2025 5:04 AM EDT ILEQXVFAOYBufyetx99/06/2025 5:04 AM EDT TIRHMBYBJDryozmy23/06/2025 5:04 AM EDT CBC AND HRQGSPOWOFQDGdjtjbc84/06/2025 5:04 AM EDT BASIC METABOLIC NREMPCpqsnxq81/06/2025 5:04 AM EDT POCT GLUCOSE METER UNSOLICITED QHUDUHOVdvcisx33/06/2025 12:23 AM EDT POCT GLUCOSE METER UNSOLICITED KTZUZYMHkfrafl07/05/2025 5:05 PM EDT POCT GLUCOSE METER UNSOLICITED PRLIWMXJymsomx73/05/2025 11:43 AM EDT RESPIRATORY ASSESS AND TREAT HWWVWJEHJwpfptn51/05/2025 8:00 AM EDTCBC WITH AUTO WGUCGNRAIALXQitzidi34/05/2025 7:59 AM EDT CWPEGXNBMIWocvlfp61/05/2025 7:59 AM EDT ZWQYQHYHZHrhvreu27/05/2025 7:59 AM EDT BASIC METABOLIC ZMFEPXsquqop69/05/2025 7:59 AM EDT URINALYSIS LCIBQDEBEUVBXAO94/05/2025 7:45 AM EDT OHYVDOOZXRCGIQ05/05/2025 7:45 AM EDT CBC AND ILXNTILEAMTOUjsliup31/05/2025 5:55 AM EDT POCT GLUCOSE METER UNSOLICITED IUPUJNWPumeruh15/05/2025 5:14 AM EDT POCT GLUCOSE METER UNSOLICITED WOIAYDEYngyvtq35/05/2025 12:19 AM EDT URINE ERSXYUNUilygqg75/04/2025 5:33 PM EDT POCT GLUCOSE METER UNSOLICITED XYGNTRSMmptnmx30/04/2025 4:34 PM EDT POCT GLUCOSE METER UNSOLICITED MTNDYPSObzbuof41/04/2025 12:09 PM EDT RESPIRATORY ASSESS AND TREAT KIMGHOYPNbarwqt38/04/2025 8:00 AM EDTPOCT GLUCOSE METER UNSOLICITED FCWFTDZFjmfest79/04/2025 5:36 AM EDT PHOSPHORUSAdd-On06/22/2025 3:54 AM EDT CBC WITH AUTO VIXOXLRRHTYSQioxfgu07/04/2025 3:54 AM EDT BASIC METABOLIC WMRVLOiegeou23/04/2025 3:54 AM EDT CBC AND PMMGYIBJMCNSIiipfjj41/04/2025 3:54 AM EDT POCT GLUCOSE METER UNSOLICITED TCCUERAEjmmobn57/03/2025 11:32 PM EDT MONITOR EXHALED FD4Annksjm97/03/2025 8:00 PM EDTPOCT GLUCOSE METER UNSOLICITED TOPSDPBScgpakd93/03/2025 6:15 PM EDT POCT GLUCOSE METER UNSOLICITED GFJAKTONvyvmsm39/03/2025 5:21 PM EDT RESPIRATORY ASSESS AND TREAT FXUXTSPBSeofmqx36/03/2025 5:03 PM EDTRESPIRATORY ASSESS AND TREAT EMEDSFRGYnzvdvq02/03/2025 5:03 PM EDTMONITOR EXHALED PB9Flflarp 06/21/2025 4:00 PM EDTPOCT GLUCOSE METER UNSOLICITED OFTPILANcjvafp63/03/2025 12:10 PM EDT MONITOR EXHALED HX7Vonqpkd16/03/2025 12:00 PM EDTBASIC METABOLIC PANELSTAT Add-on06/21/2025 8:54 AM EDT FLEMMBWBZVECL76/03/2025 8:54 AM EDT MONITOR EXHALED AJ2Lvjvnbr66/03/2025 8:00 AM EDTMONITOR EXHALED JK0Iphlryc 06/21/2025 4:00 AM EDTCBC WITH AUTO DIFFERENTIALPending Zcmlkembq80/03/2025 3:18 AM EDT CBC AND UJWTTYOISSIQJqvpnsd13/03/2025 3:18 AM EDT PHOSPHORUSPending Hxbgfdpvt73/03/2025 3:18 AM EDT MAGNESIUMPending Gfvssoaev23/03/2025 3:18 AM EDT BASIC METABOLIC PANELPending Xgcaxstpo75/03/2025 3:18 AM EDT MONITOR EXHALED ER1Bvtbuxl46/03/2025 12:00 AM EDTPOCT GLUCOSE METER UNSOLICITED HIGIHDFBwyfjho36/02/2025 10:59 PM EDT MONITOR EXHALED ZH6Tsfectt88/02/2025 8:00 PM EDTPOTASSIUMPending Discharge 06/20/2025 5:56 PM EDT MAGNESIUMPending Yuzwvqdmv95/02/2025 5:56 PM EDT POCT GLUCOSE METER UNSOLICITED ISSPUBCIpwdpwj67/02/2025 5:[address] ABDOMEN PELVIS WO IV MGPLLTHAMPJX46/02/2025 4:33 PM EDT MONITOR EXHALED HU5Ahmowjq16/02/2025 4:00 PM EDTFL UPPER GI WITH KUBRoutine 06/20/2025 3:28 PM EDT VASC US LOWER EXTREMITY ARTERIAL DUPLEX ONNZJMWKHIernbqt92/02/2025 2:28 PM EDT XR CHEST 1 GXCWIPKO31/02/2025 2:09 PM EDT POCT GLUCOSE METER UNSOLICITED GKAFRSBOzwqczt38/02/2025 12:37 PM EDT MONITOR EXHALED TR4Mdxmcwn13/02/2025 12:00 PM EDTVASC US UPPER EXTREMITY VENOUS DUPLEX QKCWLDJFT31/02/2025 10:48 AM EDT MONITOR EXHALED ZW9Jznseby90/02/2025 8:00 AM EDTPOCT GLUCOSE METER UNSOLICITED MRIJINFVoeises97/02/2025 6:12 AM EDT CBCPending Agzyoerck14/02/2025 6:09 AM EDT MAGNESIUMPending Jhjgtusra66/02/2025 6:09 AM EDT BASIC METABOLIC PANELPending Bqlzyjuvz77/02/2025 6:09 AM EDT MONITOR EXHALED TD0Jkaayok28/02/2025 4:00 AM EDTBASIC METABOLIC PANELPending Fuxfsqlze48/02/2025 12:40 AM EDT HEMOGLOBIN AND HEMATOCRIT, BLOODPending Zwtnqcaic41/02/2025 12:40 AM EDT POCT GLUCOSE METER UNSOLICITED WEKXMLIPkmzmlz91/02/2025 12:39 AM EDT MONITOR EXHALED DZ9Uvspapk22/02/2025 12:00 AM EDTBASIC METABOLIC PANELPending Eqnqlvgow58/01/2025 8:09 PM EDT MONITOR EXHALED KA6Cvoynwt40/01/2025 8:00 PM EDTPOCT GLUCOSE METER UNSOLICITED TEKTILETaeqegl96/01/2025 5:14 PM EDT MONITOR EXHALED AS2Tzgfhla31/01/2025 4:00 PM EDTHEMOGLOBIN AND HEMATOCRIT, BLOOD Pending Bccmswbfo16/01/2025 3:51 PM EDT POCT GLUCOSE METER UNSOLICITED JTPTFSBOkekwra99/01/2025 11:54 AM EDT TRANSFUSE RED BLOOD LCXCIDsezard18/01/2025 8:48 AM EDTMONITOR EXHALED TE0Gaowqig 06/19/2025 8:00 AM EDTPREPARE VUNEadflhk38/01/2025 7:43 AM EDT PREPARE FAGNfzarhp62/01/2025 4:13 AM EDT MONITOR EXHALED JM1Qkvkbwd26/01/2025 4:00 AM EDTTYPE AND SCREENPending Discharge 06/19/2025 3:46 AM EDT PHOSPHORUSPending Uexdokdnx04/01/2025 3:46 AM EDT MAGNESIUMPending Jieuuzzkq23/01/2025 3:46 AM EDT BASIC METABOLIC PANELPending Pbovtmstd85/01/2025 3:46 AM EDT CBCPending Opgiovxdw97/01/2025 3:46 AM EDT TRIGLYCERIDESPending Cxohudmdw32/01/2025 3:46 AM EDT MONITOR EXHALED DH7Wabnnwd84/01/2025 12:00 AM EDTPOCT GLUCOSE METER UNSOLICITED TPXEVPLQzoznuh28/31/2025 11:52 PM EDT ABG UNSOLICITED YHYADGHCqyqznk95/31/2025 11:35 PM EDT HEMOGLOBIN AND HEMATOCRIT, BLOODPending Daognhljp19/31/2025 11:27 PM EDT ABG MLHQHsiwyth94/31/2025 11:15 PM EDTPOCT GLUCOSE METER UNSOLICITED RESULTS Atrtvzm4706/18/2025 9:50 PM EDT MONITOR EXHALED GL2Czuphaq24/31/2025 8:00 PM EDTHEMOGLOBIN AND HEMATOCRIT, BLOOD Pending Chnxazxbt29/31/2025 5:22 PM EDT POCT GLUCOSE METER UNSOLICITED BKXVNVAAbsirma07/31/2025 5:11 PM EDT MONITOR EXHALED VW6Udzbspq08/31/2025 4:00 PM EDTMONITOR EXHALED FG3Twihjgn 06/18/2025 1:40 PM EDTMONITOR EXHALED ZW0Fgvsmzd38/31/2025 1:40 PM EDTPOCT GLUCOSE METER UNSOLICITED OAXHTXVKnpjklg85/31/2025 11:40 AM EDT POCT GLUCOSE METER UNSOLICITED ZLQDVAFAituklx83/31/2025 8:00 AM EDT PHOSPHORUSPending Ipegbltcm83/31/2025 4:50 AM EDT MAGNESIUMPending Rowatubnd02/31/2025 4:50 AM EDT BASIC METABOLIC PANELPending Viufiqzie99/31/2025 4:50 AM EDT CBCPending Tdacovcjf44/31/2025 4:50 AM EDT BASIC METABOLIC QEJHXGqpjs74/31/2025 12:32 AM EDT HEMOGLOBIN AND HEMATOCRIT, DKKEAAdinv91/31/2025 12:32 AM EDT POCT GLUCOSE METER UNSOLICITED WNNJGSTIyinewt15/30/2025 11:41 PM EDT POCT GLUCOSE METER UNSOLICITED GFICJHQYlsidjg07/30/2025 7:12 PM EDT POCT GLUCOSE METER UNSOLICITED PBJSJWFHcghiwj83/30/2025 5:27 PM EDT HXEMVUQPBXUgoqgba32/30/2025 4:49 PM EDTHEMOGLOBIN AND HEMATOCRIT, BLOODTimed 06/17/2025 3:09 PM EDT BASIC METABOLIC MXUKRMzsfr32/30/2025 3:09 PM EDT BLOOD ICRDPPTYkdyhbh64/30/2025 3:09 PM EDT POCT GLUCOSE METER UNSOLICITED HSFRCQFCwbzhsu60/30/2025 11:31 AM EDT HEPATIC FUNCTION PANELAdd-On06/17/2025 10:40 AM EDT BASIC METABOLIC QQFNCWrpek15/30/2025 10:40 AM EDT BLOOD OIEMLGZNdhdonn19/30/2025 10:40 AM EDT ABG COMPLETE UNSOLICITED EHODUJQThbbsxv86/30/2025 4:02 AM EDT ABG COMPLETE FQNZJesplev11/30/2025 3:48 AM EDTLACTIC ACID WITH 4 HOUR REFLEX Fjaadgx8706/17/2025 3:47 AM EDT XTWDJBLETPTjnwtpw91/30/2025 3:47 AM EDT PLGIQRNSBPiayjaw38/30/2025 3:47 AM EDT CBC WITH AUTO WVDYDWASJULBGgkuuxv17/30/2025 3:47 AM EDT CBC AND KNTOEQKGXSXIWoikbjc36/30/2025 3:47 AM EDT BASIC METABOLIC MIDFSWmapt63/30/2025 3:47 AM EDT ABG COMPLETE UNSOLICITED DRELPVTYtpawbe20/30/2025 1:51 AM EDT ABG COMPLETE FKNRNttykes02/30/2025 1:49 AM EDTHEPTEM KGtlpxwn41/30/2025 12:32 AM EDT INTEM BJmrtsou12/30/2025 12:32 AM EDT EXTEM ZQptpmni66/30/2025 12:32 AM EDT FIBTEM DUrnzhbz67/30/2025 12:32 AM EDT HISTOLOGY - TISSUE OZBXRwzywgu21/30/2025 12:17 AM EDT Hematemesis, unspecified whether nausea present Marginal ulcer ABG COMPLETE UNSOLICITED EPCXNMWHfymkwz50/29/2025 11:20 PM EDT ABG COMPLETE HMPGNwzpgtj37/29/2025 11:18 PM EDTABG COMPLETE UNSOLICITED RESULTS Bibvenq8306/16/2025 9:54 PM EDT ABG COMPLETE KFFRZopgxgo99/29/2025 9:53 PM EDTPREPARE FRESH FROZEN PLASMASTAT 06/16/2025 8:10 PM EDT TRANSFUSE FRESH FROZEN ENAPPDREPB88/29/2025 8:10 PM EDTLYSIS, ADHESIONS 06/16/2025 7:43 PM EDT Hematemesis, unspecified whether nausea present Marginal ulcer REVERSAL, GASTRIC WNIWXV6006/16/2025 7:43 PM EDT Hematemesis, unspecified whether nausea present Marginal ulcer ID ESOPHAGOGASTRODUODENOSCOPY TRANSORAL AYRAFVKLOZ62/29/2025 7:43 PM EDT Hematemesis, unspecified whether nausea present Marginal ulcer ID EXPLORATORY LAPAROTOMY CELIOTOMY W/WO BIOPSY SPX06/16/2025 7:43 PM EDT Hematemesis, unspecified whether nausea present Marginal ulcer ID LAPS ABD PRTM&OMENTUM DX W/WO SPEC BR/WA SPX06/16/2025 7:43 PM EDT Hematemesis, unspecified whether nausea present Marginal ulcer ANBJrednjv72/29/2025 6:26 PM EDT Hematemesis, unspecified whether nausea present ABG COMPLETE UNSOLICITED CPWMNSULifisur43/29/2025 6:13 PM EDT TRANSFUSE RED BLOOD MNTUSTKHN67/29/2025 5:35 PM EDTABG COMPLETE POCTSTAT 06/16/2025 5:17 PM EDTPOCT GLUCOSE METER UNSOLICITED UHBGNIGAfgcgug32/29/2025 3:46 PM EDT PRU WULEDacupoy09/29/2025 3:23 PM EDT HEMOGLOBIN AND HEMATOCRIT, IKTNYEezggsh86/29/2025 2:57 PM EDT PRU TEST YKJENGEI17/29/2025 2:57 PM EDTPOCT GLUCOSE METER UNSOLICITED RESULTS Dqbovmx5606/16/2025 11:46 AM EDT PROTIME-WCUCjjpgvk73/29/2025 10:49 AM EDT HEMOGLOBIN AND HEMATOCRIT, EXFHFEwrsh11/29/2025 10:49 AM EDT BASIC METABOLIC OYJVODvkuz17/29/2025 10:49 AM EDT HEMOGLOBIN AND HEMATOCRIT, JCQPTDjflp97/29/2025 8:13 AM EDT BASIC METABOLIC CARVAMplvk17/29/2025 8:13 AM EDT TRANSFUSE RED BLOOD SFRZVHkcotwi68/29/2025 8:06 AM EDTRESPIRATORY ASSESS AND TREAT ESJKXCTFFqxzeai19/29/2025 8:00 AM EDTPOCT GLUCOSE METER UNSOLICITED NNRWFAKSizzfcx77/29/2025 7:50 AM EDT ABG COMPLETE UNSOLICITED BIRFQVUGaujttn98/29/2025 6:03 AM EDT POCT GLUCOSE METER UNSOLICITED WOXLQKTQhirkxu06/29/2025 5:58 AM EDT CBC WITH AUTO LMFTJRDOVHVTUlnugwc45/29/2025 5:54 AM EDT CBC AND WCPTDXGWDMPBQjfgfph41/29/2025 5:54 AM EDT ABG HSMPQwdhqri42/29/2025 4:00 AM EDTPOCT GLUCOSE METER UNSOLICITED RESULTS Rtchvpt0206/15/2025 11:29 PM EDT QQMXCDOISLsxnwsr59/28/2025 11:25 PM EDT HEMOGLOBIN AND HEMATOCRIT, UWHYPBjbfw78/28/2025 11:25 PM EDT BASIC METABOLIC UOZKUBfxoe27/28/2025 11:25 PM EDT XR CHEST 1 ORMODXXG90/28/2025 7:20 PM EDT PROTIME-IWEKZOM7406/15/2025 6:36 PM EDT HEMOGLOBIN AND HEMATOCRIT, YFGHABbgys35/28/2025 6:36 PM EDT BASIC METABOLIC NDCUJCcduv36/28/2025 6:36 PM EDT ABDOMINAL OWJJIPNCVQykkezy18/28/2025 5:18 PM EDT Hematemesis, unspecified whether nausea present ABG COMPLETE UNSOLICITED VRFUNTRCwfhbya09/28/2025 4:34 PM EDT ABG COMPLETE DMXHAcvesfs13/28/2025 4:29 PM EDTTRANSFUSE RED BLOOD CELLSRoutine 06/15/2025 4:24 PM EDTANESTHESIA PERIPHERAL IV DQGLQJZXONehrxvm92/28/2025 4:19 PM EDT ANESTHESIA ARTERIAL LINE QAWWVEJZSTwoigum03/28/2025 4:15 PM EDT QBNInykxuj86/28/2025 3:14 PM EDT Hematemesis, unspecified whether nausea present RESPIRATORY ASSESS AND TREAT SEHKRDGCZtxahyb32/28/2025 2:56 PM EDTRESPIRATORY ASSESS AND TREAT YJNIHIMCHgwmebh58/28/2025 2:56 PM EDTABG CZXCJiqyjcl80/28/2025 2:56 PM EDTPOCT GLUCOSE METER UNSOLICITED OFMJQCZYyughhg76/28/2025 1:02 PM EDT HEMOGLOBIN AND HEMATOCRIT, WZDZWBFHE09/28/2025 12:22 PM EDT CTA ABDOMEN PELVIS W IV JJAGKFUPJpagfpd30/28/2025 10:28 AM EDT PREPARE QXXVTLI9506/15/2025 6:48 AM EDT PREPARE FHDUNVL7006/15/2025 6:48 AM EDT PREPARE LXJNqrlzyn17/28/2025 6:48 AM EDT TRIGLYCERIDESAdd-On06/15/2025 6:28 AM EDT PHOSPHORUSAdd-On06/15/2025 6:28 AM EDT MAGNESIUMAdd-On06/15/2025 6:28 AM EDT CBC WITH AUTO ELFPGOMOPIWWGkibzag69/28/2025 6:28 AM EDT BASIC METABOLIC GWRNUKbauk46/28/2025 6:28 AM EDT TYPE AND CQOBPCGtgnkuw22/28/2025 6:28 AM EDT CBC AND TCEOQLLPKUSIAordhvf17/28/2025 6:28 AM EDT XR CHEST 2 RKZYGKxostsa20/19/2025 1:48 PM EDTECG 12-RJEFVmuhjiw82/18/2025 4:29 PM EDT IMPLANT FSNIqxiscu22/18/2025 3:52 PM EDT Sinus pause ECG 12-EWNITrxchhv85/18/2025 11:46 AM EDT from Last 3 Months Results * CARDIAC DEVICE CHECK - IN CLINIC - PACEMAKER DUAL CHAMBER W/ PROG (08/25/2025 10:58 AM EST) Only the most recent of2 resultswithin the time period is included. Anatomical RegionLateralityModalityOtherSpecimen (Source)Anatomical Location / LateralityCollection Method / VolumeCollection TimeReceived Time Narrative 08/30/2025 3:35 PM EST Normal device function Authorizing ProviderResult TypeResult StatusTruesdale Hospital IMPLANTABLE CARDIAC DEVICE PROCEDURESFinal Result * CARDIAC DEVICE CHECK - REMOTE - PACEMAKER (07/20/2025 2:47 PM EDT)Specimen (Source)Anatomical Location / LateralityCollection Method / VolumeCollection TimeReceived Time Narrative Authorizing ProviderResult TypeResult StatusTruesdale Hospital IMPLANTABLE CARDIAC DEVICE PROCEDURESFinal ResultPerforming OrganizationAddressCity/State/ZIP [...] Auto WBC5.594.00 - 10.60 10*3/uL07/06/2025 1:15 PM [facility] ([facility]) RBC4.083.80 - 5.70 10*6/uL07/06/2025 1:15 PM [facility] ([facility]) Vpbbrcvkos33.9(L)12.0 - 17.0 g/dL07/06/2025 1:15 PM [facility] ([facility])Kdxotaofdx50.436.0 - 50.0 %07/06/2025 1:15 PM [facility] ([facility])MCV94.182.0 - 98.0 fL07/06/2025 1:15 PM [facility] ([facility])MCH 29.227.0 - 33.0 pg07/06/2025 1:15 PM [facility] ([facility])MCHC31.0(L) 32.0 - 35.0 g/dL07/06/2025 1:15 PM [facility] ([facility])RDW16.1(H)11.5 - 15.0 %07/06/2025 1:15 PM [facility] ([facility])Neutrophils %65.140.0 - 72.0 %07/06/2025 1:15 PM [facility] ([facility])Lymphocytes %22.020.0 - 45.0 %07/06/2025 1:15 PM [facility] ([facility])Monocytes %9.35.0 - 12.0 % 07/06/2025 1:15 PM [facility] ([facility])Eosinophils %3.20.0 - 6.0 % 07/06/2025 1:15 PM [facility] ([facility])Basophils %0.00.0 - 1.0 % 07/06/2025 1:15 PM [facility] ([facility])Neutrophils Absolute3.641.60 - 7.60 10*3/07/06/2025 1:15 PM [facility] ([facility])Lymphocytes Absolute 1.231.20 - 4.00 10*3/07/06/2025 1:15 PM [facility] ([facility])Monocytes Absolute0.520.10 - 1.00 10*3/07/06/2025 1:15 PM [facility] ([facility]) Eosinophils Absolute0.180.00 - 0.50 10*3/07/06/2025 1:15 PM [facility] ([facility])Basophils Absolute0.000.00 - 0.20 10*3/07/06/2025 1:15 PM [facility] ([facility])Kgwunpkzs715(L)150 - 400 10*3/07/06/2025 1:15 PM [facility])nRBC %0.00 %07/06/2025 1:15 PM [facility] ([facility])Immature Granulocytes %0.40.0 - 1.0 %07/06/2025 1:15 PM [facility] ([facility])Immature Granulocytes Absolute0.020.00 - 0.20 10*3/07/06/2025 1:15 PM [facility] ([facility])Immature Platelet Fraction %13.2(H)0.8 - 6.3 %07/06/2025 1:15 PM [facility] ([facility])Specimen (Source)Anatomical Location / LateralityCollection Method / VolumeCollection TimeReceived Time BloodVenous blood specimen / UnknownVenipuncture / Xdvigzd1207/06/2025 10:09 AM EDT07/06/2025 10:48 AM EDT Narrative Authorizing ProviderResult TypeResult StatusJustin Cowan MDLAB BLOOD ORDERABLES Final ResultPerforming OrganizationAddressCity/State/ZIP CodePhone Number [facility] ([facility]) [address] [place] [address] * Iron and TIBC (07/06/2025 10:09 AM EDT)ComponentValueRef RangeTest Method Analysis TimePerformed AtPathologist RvbfnneubJkgj1138 - 212 ug/dL07/06/2025 11:54 AM [facility] ([facility])UMOT960748 - 450 ug/dL07/06/2025 11:54 AM [facility] ([facility])Iron Wotcdabwwe2636 - 50 %07/06/2025 11:54 AM [facility] ([facility])NLAK490.0155.0 - 355.0 ug/dL07/06/2025 11:54 AM [facility] ([facility])Specimen (Source)Anatomical Location / Laterality Collection Method / VolumeCollection TimeReceived TimeBloodVenous blood specimen / UnknownVenipuncture / Pfozdhw5707/06/2025 10:09 AM EDT07/06/2025 10:43 AM EDT Narrative Authorizing ProviderResult TypeResult StatusJustin Cowan MDLAB BLOOD ORDERABLES Final ResultPerforming OrganizationAddressCity/State/ZIP CodePhone Number [facility] ([facility]) [address] [place] [address] * Copper, serum (07/06/2025 10:09 AM EDT)ComponentValueRef RangeTest Method Analysis TimePerformed AtPathologist NgltwvhhzHgrnfz06.570.0 - 140.0 ug/dL 07/08/2025 6:26 AM EDTAR[facility] ([facility])Comment: INTERPRETIVE INFORMATION: Copper, Serum or Plasma [...] developed and its performance characteristics determined by [facility] It has not been cleared or approved by the US Food and Drug Administration. This test was performed in a CLIA certified laboratory and is intended for clinical purposes. Performed By: [facility] [address] [place] [id number] [employer]er: Calin Cui MD, PhD CLIA Number: [id number] Specimen (Source)Anatomical Location / LateralityCollection Method / Volume Collection TimeReceived TimeBloodVenous blood specimen / UnknownVenipuncture / Nevmimn6207/06/2025 10:09 AM EDT07/06/2025 10:43 AM EDT Narrative Authorizing ProviderResult TypeResult StatusJustin [facility] BLOOD ORDERABLES Final ResultPerforming OrganizationAddressCity/State/ZIP CodePhone Number [facility] ([facility] [address] [phone] * Zinc (07/06/2025 10:09 AM EDT)ComponentValueRef RangeTest MethodAnalysis Time Performed AtPathologist HzlayuiguWvpe50.960.0 - 120.0 ug/dL07/08/2025 6:28 AM EDTARUP [facility] ([facility])Comment: INTERPRETIVE INFORMATION: Zinc, Serum or Plasma Elevated [...] developed and its performance characteristics determined by [facility] It has not been cleared or approved by the US Food and Drug Administration. This test was performed in a CLIA certified laboratory and is intended for clinical purposes. Performed By: [facility] [address] [phone] [employer]er: Calin Cui MD, PhD CLIA Number: [id number] Specimen (Source)Anatomical Location / LateralityCollection Method / Volume Collection TimeReceived TimeBloodVenous blood specimen / UnknownVenipuncture / Qndzkzr6107/06/2025 10:09 AM EDT07/06/2025 10:43 AM EDT Narrative Authorizing ProviderResult TypeResult StatusJustin [facility] BLOOD ORDERABLES Final ResultPerforming OrganizationAddressCity/State/ZIP CodePhone Number [facility] ([facility]) [address] [place] [address] * Vitamin A (07/06/2025 10:09 AM EDT)ComponentValueRef RangeTest MethodAnalysis TimePerformed AtPathologist SignatureVitamin A (Retinol)0.460.30 - 1.20 mg/L 07/10/2025 4:04 PM EDTARUP [facility] ([facility])Vitamin A (Retinyl Palmitate) <0.020.00 - 0.10 mg/L07/10/2025 4:04 PM EDTARUP [facility] ([facility])Vitamin A GibaamlhwbfzmaRnpear84/22/2025 4:04 PM EDTARUP [facility] ([facility])Comment: This test was developed and its performance characteristics determined by [facility] It has not been cleared or approved by the US Food and Drug Administration. This test was performed in a CLIA certified laboratory and is intended for clinical purposes. Performed By: [facility] [address] [place] [address] [employer]er: Calin Cui MD, PhD [facility] Number: [id number] Specimen (Source)Anatomical Location / LateralityCollection Method / Volume Collection TimeReceived TimeBloodVenous blood specimen / UnknownVenipuncture / Pycvgee2807/06/2025 10:09 AM EDT07/06/2025 10:43 AM EDT Narrative Authorizing ProviderResult TypeResult StatusJustin [facility] B[facility] ORDERABLES Final ResultPerforming OrganizationAddressCity/State/ZIP CodePhone Number [facility] ([facility]) [address] [place] [address] * Niacin (vitamin B3) (07/06/2025 10:09 AM EDT)ComponentValueRef RangeTest MethodAnalysis TimePerformed AtPathologist SignatureNicotinic AcidNone Det ng/mL07/16/2025 7:15 AM EDTARUP LABORATORY ([facility])Comment: Serum or Plasma Reporting Limit: 10 [...] from less than 10 ng/mL to about 88576 ng/mL. After oral administration of an immediate-release [...] min. for 20 doses (over 3 hours): 95417 ng/mL This test should be considered as a therapeutic drug monitoring/toxicological test associated with niacin (Vitamin B3) supplementation. Care should be taken in the use of this test for basal Vitamin B3 determination. The supplied reference comment does not reflect normal, endogenous Vitamin B3 concentrations. Analysis by High Performance Liquid Chromatography/ Tandem Mass Spectrometry (LC-MS/MS) Ziizatkrriob91wa/mL07/16/2025 7:[address] [facility] ([facility])Comment: Serum or Plasma Reporting Limit: 10 ng/mL [...] Spectrometry (LC-MS/MS) Nicotinuric AcidNone Detng/mL07/16/2025 7:15 AM [facility]TARE[facility] ([facility] Comment: Serum or Plasma Reporting Limit: 10 [...] developed and its performance characteristics determined by [facility]. ??It has not been cleared or approved by the US Food and Drug Administration. Digital data review may have taken place remotely by qualified [facility] staff utilizing a secure [employer] connection for some or all of the reported results. This is in accordance with and follows CLIA regulations. Testing performed at [facility] [address] [place] [phone] Gino Poon, PhD, [facility], [employer] [facility] [id number] Specimen (Source)Anatomical Location / LateralityCollection Method / Volume Collection TimeReceived TimeBloodVenous blood specimen / UnknownVenipuncture / Iayyzia7007/06/2025 10:09 AM EDT07/06/2025 10:48 AM EDT Narrative Authorizing ProviderResult TypeResult StatusJustin [facility] BLOOD ORDERABLES Final ResultPerforming OrganizationAddressCity/State/ZIP CodePhone Number [facility] ([facility]) [address] [place] [address] * Vitamin B2 (07/06/2025 10:09 AM EDT)ComponentValueRef RangeTest MethodAnalysis TimePerformed AtPathologist SignatureVitamin B2125 - 50 nmol/L07/09/2025 3:53 PM EDTARUP LABORATORY ([facility])Comment: INTERPRETIVE INFORMATION: Vitamin B2, Plasma This test was developed and its performance characteristics determined by [facility] It has not been cleared or approved by the US Food and Drug Administration. This test was performed in a CLIA certified laboratory and is intended for clinical purposes. Performed By: [facility] [address] [place] [address] [employer]er: Calin Cui MD, PhD CLIA Number: [id number] Specimen (Source)Anatomical Location / LateralityCollection Method / Volume Collection TimeReceived TimeBloodVenous blood specimen / UnknownVenipuncture / Hkuueuk9607/06/2025 10:09 AM EDT07/06/2025 10:33 AM EDT Narrative Authorizing ProviderResult TypeResult StatusJustin [facility] BLOOD ORDERABLES Final ResultPerforming OrganizationAddressCity/State/ZIP CodePhone Number [facility] ([facility]) [address] [place] [phone] * (ABNORMAL) Vitamin D 25 hydroxy (07/06/2025 10:09 AM EDT)ComponentValueRef RangeTest MethodAnalysis TimePerformed AtPathologist SignatureVit D, 25-Gscrszn50.8(L)30.0 - 80.0 ng/mL07/06/2025 12:59 PM [facility] ([facility])Comment:>80.0 Toxicity possibleSpecimen (Source)Anatomical Location / LateralityCollection Method / VolumeCollection TimeReceived TimeBloodVenous blood specimen / UnknownVenipuncture / Zfmtaih6107/06/2025 10:09 AM EDT 07/06/2025 10:43 AM EDT Narrative Authorizing ProviderResult TypeResult StatusJustin [facility] BLOOD ORDERABLES Final ResultPerforming OrganizationAddressty/State/ZIP CodePhone Number [facility] ([facility]) [address] [place] [address] * TSH (07/06/2025 10:09 AM EDT)ComponentValueRef RangeTest MethodAnalysis Time Performed AtPathologist SignatureTSH1.590.34 - 5.60 mIU/L07/06/2025 11:54 AM [facility] ([facility])Specimen (Source)Anatomical Location / Laterality Collection Method / VolumeCollection TimeReceived TimeBloodVenous blood specimen / UnknownVenipuncture / Euwrhdm9107/06/2025 10:09 AM EDT07/06/2025 10:43 AM EDT Narrative Authorizing ProviderResult TypeResult StatusJustin [facility] BLOOD ORDERABLES Final ResultPerforming OrganizationAddressCity/State/ZIP CodePhone Number [facility] ([facility]) [address] [place] [address] * Vitamin B1 (07/06/2025 10:09 AM EDT)ComponentValueRef RangeTest MethodAnalysis TimePerformed AtPathologist SignatureVitamin B1, Tuhvey18 - 15 nmol/L 07/10/2025 4:05 PM [facility] ([facility])Comment: INTERPRETIVE DATA: Vitamin B1, Plasma Thiamine (vitamin B1) is reported. However, thiamine diphosphate (TDP), the biologically active form of thiamine, is not found in measurable concentrations in plasma, and is best determined in whole blood specimens. Plasma thiamine concentration reflects recent intake rather than body stores. This test was developed and its performance characteristics determined by [facility] It has not been cleared or approved by the [place] Food and Drug Administration. This test was performed in a CLIA certified laboratory and is intended for clinical purposes. Performed By: [facility] [address] [place] [id number] [employer] Designer: Calin Cui MD, PhD CLIA Number: [id number] Specimen (Source)Anatomical Location / LateralityCollection Method / Volume Collection TimeReceived TimeBloodVenous blood specimen / UnknownVenipuncture / Aairlsg3207/06/2025 10:09 AM EDT07/06/2025 10:43 AM EDT Narrative Authorizing ProviderResult TypeResult StatusJustin [facility] BLOOD ORDERABLES Final ResultPerforming OrganizationAddressCity/State/ZIP CodePhone Number [facility] ([facility]) [address] [place] [phone] * (ABNORMAL) Vitamin B6 (07/06/2025 10:09 AM EDT)ComponentValueRef RangeTest MethodAnalysis TimePerformed AtPathologist SignatureVitamin B6<5.0(L)20.0 - 125.0 nmol/L07/10/2025 7:48 PM [facility] ([facility]Comment: INTERPRETIVE INFORMATION: Vitamin B6 (Pyridoxal 5-Phosphate) Pyridoxal 5'-phosphate measured in a specimen collected following an 8-hour or overnight fast accurately indicates vitamin B6 nutritional status. Non-fasting specimen concentration reflects recent vitamin intake. This test was developed and its performance characteristics determined by [facility] It has not been cleared or approved by the [place] Food and Drug Administration. This test was performed in a CLIA certified laboratory and is intended for clinical purposes. Performed By: [facility] [address] [place] [id number] [employer]er: Calin Cui MD, PhD CLIA Number: [id number] Specimen (Source)Anatomical Location / LateralityCollection Method / Volume Collection TimeReceived TimeBloodVenous blood specimen / UnknownVenipuncture / Vknkcab8907/06/2025 10:09 AM EDT07/06/2025 10:33 AM EDT Narrative Authorizing ProviderResult TypeResult StatusJustin [facility] BLOOD ORDERABLES Final ResultPerforming OrganizationAddressCity/State/ZIP CodePhone Number [facility] ([facility] [address] [place] [phone] * (ABNORMAL) Phosphorus (07/06/2025 10:09 AM EDT) Only the most recent of13 resultswithin the time period is included. ComponentValueRef RangeTest MethodAnalysis TimePerformed AtPathologist Signature Phosphorus1.8(L)2.5 - 5.0 mg/dL07/06/2025 11:54 AM [facility] ([facility]) Specimen (Source)Anatomical Location / LateralityCollection Method / Volume Collection TimeReceived TimeBloodVenous blood specimen / UnknownVenipuncture / Mzcrbej1207/06/2025 10:09 AM EDT07/06/2025 10:43 AM EDT Narrative Authorizing ProviderResult TypeResult StatusJustin [facility] B[facility] ORDERABLES Final ResultPerforming OrganizationAddressCity/State/ZIP CodePhone Number [facility]) [address] [place] [address] * Magnesium (07/06/2025 10:09 AM EDT) Only the most recent of15 resultswithin the time period is included. ComponentValueRef RangeTest MethodAnalysis TimePerformed AtPathologist Signature Magnesium2.11.9 - 2.7 mg/dL07/06/2025 11:54 AM [facility] ([facility]) Specimen (Source)Anatomical Location / LateralityCollection Method / Volume Collection TimeReceived TimeBloodVenous blood specimen / UnknownVenipuncture / Kxrgfbz2307/06/2025 10:09 AM EDT07/06/2025 10:43 AM EDT Narrative Authorizing ProviderResult TypeResult StatusJustin [facility] BLOOD ORDERABLES Final ResultPerforming OrganizationAddressCity/State/ZIP CodePhone Number [facility] ([facility]) [address] [place] [phone] * Folate RBC (07/06/2025 10:09 AM EDT)ComponentValueRef RangeTest MethodAnalysis TimePerformed AtPathologist SignatureHematocrit (client supplied)38.4% 07/08/2025 2:12 AM [facility] ([facility])RBC Hpxbxa099>=366 ng/mL 07/08/2025 2:12 AM EDTAR[facility] ([facility])Comment: Performed By: [facility] [address] [place] [id number] [employer] Designer: Calin Cui MD, PhD CLIA Number: [id number] Specimen (Source)Anatomical Location / LateralityCollection Method / Volume Collection TimeReceived TimeBloodVenous blood specimen / UnknownVenipuncture / Nckmvil2807/06/2025 10:09 AM EDT07/06/2025 10:33 AM EDT Narrative Authorizing ProviderResult TypeResult StatusJustin Cowan [facility] BLOOD ORDERABLES Final ResultPerforming OrganizationAddressCity/State/ZIP CodePhone Number [facility] ([facility]) [address] [place] [address] * Ferritin (07/06/2025 10:09 AM EDT)ComponentValueRef RangeTest MethodAnalysis TimePerformed AtPathologist EpsnxuuplGaoxqxdb81.011.0 - 336.0 ng/mL07/06/2025 11:54 AM [facility] ([facility])Specimen (Source)Anatomical Location / LateralityCollection Method / VolumeCollection TimeReceived TimeBloodVenous blood specimen / UnknownVenipuncture / Acatnhy6607/06/2025 10:09 AM EDT 07/06/2025 10:43 AM EDT Narrative Authorizing ProviderResult TypeResult StatusJustin Cowan MDLAB BLOOD ORDERABLES Final ResultPerforming OrganizationAddressCity/State/ZIP CodePhone Number [facility] ([facility]) [address] [place] [address] * Vitamin B12 (07/06/2025 10:09 AM EDT)ComponentValueRef RangeTest Method Analysis TimePerformed AtPathologist SignatureVitamin B-[id number] - 914 pg/mL 07/06/2025 11:54 AM [facility] ([facility])Comment: REFERENCE RANGES: 180-914 pg/mL ??Normal 145-179 pg/mL ??Indeterminate <145 pg/mL Deficient Specimen (Source)Anatomical Location / LateralityCollection Method / Volume Collection TimeReceived TimeBloodVenous blood specimen / UnknownVenipuncture / Alsjyyn9207/06/2025 10:09 AM EDT07/06/2025 10:43 AM EDT Narrative Authorizing ProviderResult TypeResult StatusJustin Cowan MDLAB BLOOD ORDERABLES Final ResultPerforming OrganizationAddressCity/State/ZIP CodePhone Number [facility] ([facility]) [address] [place] [address] * (ABNORMAL) Comprehensive metabolic panel (07/06/2025 10:09 AM EDT)Component ValueRef RangeTest MethodAnalysis TimePerformed AtPathologist SignatureSodium 032136 - 145 mmol/L07/06/2025 11:54 AM [facility] ([facility])Potassium 3.63.5 - 5.1 mmol/L07/06/2025 11:54 AM [facility] ([facility])Chloride 19019 - 107 mmol/L07/06/2025 11:54 AM [facility] ([facility])AP71322 - 31 mmol/L07/06/2025 11:54 AM [facility] ([facility])Anion Gap97 - 20 mmol/L07/06/2025 11:54 AM [facility] ([facility])BUN87 - 25 mg/dL 07/06/2025 11:54 AM [facility] ([facility])Creatinine0.920.60 - 1.30 mg/dL07/06/2025 11:54 AM [facility] ([facility])BUN/Creatinine Ratio8.7 07/06/2025 11:54 AM [facility] ([facility])Gnsakho4391 - 100 mg/dL 07/06/2025 11:54 AM [facility] ([facility])Calcium8.98.6 - 10.3 mg/dL 07/06/2025 11:54 AM [facility] ([facility])AST6(L)13 - 39 U/L07/06/2025 11:54 AM [facility] ([facility])ALT (SGPT)<3(L)7 - 52 U/L07/06/2025 11:54 AM [facility] ([facility])Alkaline Wpkjlpkuwyq214(H)34 - 104 U/L 07/06/2025 11:54 AM [facility] ([facility])Total Protein6.46.0 - 8.3 g/dL07/06/2025 11:54 AM [facility] ([facility])Albumin3.4(L)3.5 - 5.7 g/dL07/06/2025 11:54 AM [facility] ([facility])Total Bilirubin0.50.3 - 1.0 mg/dL07/06/2025 11:54 AM [facility] ([facility])eGFR68.7>60.0 mL/min/1.73m* 11:54 AM [facility] ([facility])Comment:[facility]???s estimated glomerular filtration rate (eGFR) will [...] TimeReceived TimeBloodVenous blood specimen / UnknownVenipuncture / Draunmt7607/06/2025 10:09 AM EDT07/06/2025 10:43 AM EDT Narrative Authorizing ProviderResult TypeResult StatusJustin Cowan MDLAB BLOOD ORDERABLES Final ResultPerforming OrganizationAddressCity/State/ZIP CodePhone Number [facility]) [address] [place] [address] * POCT glucose meter (06/28/2025 11:32 AM EDT) Only the most recent of54 resultswithin the time period is included. ComponentValueRef RangeTest MethodAnalysis TimePerformed AtPathologist Signature Glucose QHI96060 - 105 mg/dL06/28/2025 11:44 AM [facility] ([facility]) Comment:njghidr12Khcwcmsk (Source)Anatomical Location / LateralityCollection Method / VolumeCollection TimeReceived TimeBloodCapillary blood specimen / Eyjxvxs4406/28/2025 11:32 AM EDT06/28/2025 11:44 AM EDT Narrative [facility] ([facility]) - 06/28/2025 11:44 AM EDT Waived Testing in the ED is performed under the ED CLIA certificate #[id number]. Authorizing ProviderResult TypeResult StatusJustin Cowan MDLAB BLOOD ORDERABLES Final ResultPerforming OrganizationAddressCity/State/ZIP CodePhone Number [facility] ([facility]) [address] [place] [address] * (ABNORMAL) Basic metabolic panel (06/28/2025 3:22 AM EDT) Only the most recent of23 resultswithin the time period is included. ComponentValueRef RangeTest MethodAnalysis TimePerformed AtPathologist Signature Jxpcwj294382 - 145 mmol/L06/28/2025 4:29 AM [facility] ([facility]) Potassium3.3(L)3.5 - 5.1 mmol/L06/28/2025 4:29 AM [facility] ([facility]) Oraczvps34278 - 107 mmol/L06/28/2025 4:29 AM [facility] ([facility])CO228 21 - 31 mmol/L06/28/2025 4:29 AM [facility] ([facility])ZOJ440 - 25 mg/dL 06/28/2025 4:29 AM [facility] ([facility])Creatinine0.790.60 - 1.30 mg/dL 06/28/2025 4:29 AM [facility] ([facility])Cwlhewe8436 - 100 mg/dL 06/28/2025 4:29 AM [facility] ([facility])Calcium8.5(L)8.6 - 10.3 mg/dL 06/28/2025 4:29 AM [facility] ([facility])Anion Gap77 - 20 mmol/L 06/28/2025 4:29 AM [facility] ([facility])eGFR82.4>60.0 mL/min/1.73m*2 06/28/2025 4:29 AM [facility] ([facility])Comment:[facility]???s estimated glomerular filtration rate (eGFR) will [...] group of individuals. BUN/Creatinine Ratio24. 4:29 AM [facility]TINS[facility] ([facility])Specimen (Source)Anatomical Location / LateralityCollection Method / VolumeCollection TimeReceived TimeBloodVenous blood specimen / UnknownVenipuncture / Unknown 06/28/2025 3:22 AM EDT06/28/2025 4:07 AM EDT Narrative Authorizing ProviderResult TypeResult StatusJustin Cowan MDLAB BLOOD ORDERABLES Final ResultPerforming OrganizationAddressCity/State/ZIP CodePhone Number [facility] ([facility]) [address] [place] [address] * [facility] Lower Extremity Venous Duplex Bilateral (06/26/2025 10:40 [...] Urine6-10 (A)None Seen, 0-2 /HPF06/23/2025 8:26 AM [facility] ([place])WBC, Joowd42-20(A)None Seen, 0-2 /HPF06/23/2025 8:26 AM [facility] ([place])Squamous Epithelial, UrineNone SeenNone Seen, Occasional, Few /LPF 06/23/2025 8:26 AM [facility] ([place])Mucus, UrineOccasionalNone Seen, Occasional, Few /LPF06/23/2025 8:26 AM [facility] ([facility]) Specimen (Source)Anatomical Location / LateralityCollection Method / Volume Collection TimeReceived TimeUrine (Urine, Ferro Catheter)Non-blood Collection / Nlchijg7906/23/2025 7:45 AM EDT06/23/2025 7:51 AM EDT Narrative Authorizing ProviderResult TypeResult StatusDaarleen ENGLISH URINE ORDERABLES Final ResultPerforming OrganizationAddressCity/State/ZIP CodePhone Number [facility] ([facility]) [address] [place] [address] * (ABNORMAL) Urinalysis (06/23/2025 7:45 AM EDT)ComponentValueRef RangeTest MethodAnalysis TimePerformed AtPathologist SignatureColor, UrineLight-Yellow Colorless, Yellow, Light-Ofvdlh4806/23/2025 8:26 AM [facility] ([facility])Clarity, XrfqwPixcbZppbt48/05/2025 8:26 AM [facility] ([facility])pH, Urine6.55.0 - 8.0 pH06/23/2025 8:26 AM [facility] ([facility])Leukocytes, UrineLarge(A)Pzqoecqa95/05/2025 8:26 AM [facility] ([facility])Nitrite, BeejhYaqxgtjlFovbafwd96/05/2025 8:26 AM [facility] ([facility])Protein, UrineNegativeNegative mg/dL06/23/2025 8:26 AM [facility] ([facility])Glucose, UrineNormalNormal mg/dL06/23/2025 8:26 AM EDT [facility] ([facility])Bilirubin, YbhybSruazltbOfptxyut18/05/2025 8:26 AM [facility] ([facility])Specific [place], Urine1.005(L)1.010 - 1.030 06/23/2025 8:26 AM [facility] ([facility])Ketones, UrineNegativeNegative mg/dL06/23/2025 8:26 AM [facility] ([facility])Blood, UrineSmall(A) Vbqhkpdy55/05/2025 8:26 AM [facility] ([facility])Urobilinogen, Urine2.0 (A)Normal mg/dL06/23/2025 8:26 AM [facility] ([facility])Specimen (Source)Anatomical Location / LateralityCollection Method / VolumeCollection TimeReceived TimeUrine (Urine, Ferro Catheter)Non-blood Collection / Unknown 06/23/2025 7:45 AM EDT06/23/2025 7:51 AM EDT Narrative Authorizing ProviderResult TypeResult StatusBryson ENGLISH URINE ORDERABLES Final ResultPerforming OrganizationAddressCity/State/ZIP CodePhone Number [facility] ([facility]) [address] [place], [place] [phone] * (ABNORMAL) Urine culture, routine (06/22/2025 5:33 PM EDT)ComponentValueRef RangeTest MethodAnalysis TimePerformed AtPathologist SignatureUrine Culture 10,000 - 50,000 CFU/Ml Pseudomonas aeruginosa(A) SABI 06/24/2025 6:34 AM [facility] ([facility])Specimen (Source)Anatomical Location / LateralityCollection Method / VolumeCollection TimeReceived TimeUrine Urine specimen obtained by clean catch procedure / UnknownNon-blood Collection / Tthessq5606/22/2025 5:33 PM EDT06/22/2025 5:47 PM EDT Narrative OrganismAntibioticMethodSusceptibilityPseudomonas aeruginosaCefepimeMIC 4 ug/ml: Susceptible Pseudomonas aeruginosaCiprofloxacinMIC 0.5 ug/ml: Susceptible Pseudomonas aeruginosaLevofloxacinMIC 1 ug/ml: Susceptible Pseudomonas aeruginosaMeropenemMIC 1 ug/ml: Susceptible Pseudomonas aeruginosaPiperacillin + TazobactamMIC 8/4 ug/ml: Susceptible Pseudomonas aeruginosaTobramycinMIC <=2 ug/ml: Susceptible Authorizing ProviderResult TypeResult StatusBhupendra ENGLISH MICROBIOLOGY - GENERAL ORDERABLESFinal ResultPerforming OrganizationAddressCity/State/ZIP Code Phone Number [facility]) [address] [place], [place] [phone] * Potassium (06/21/2025 8:54 AM EDT) Only the most recent of2 resultswithin the time period is included. ComponentValueRef RangeTest MethodAnalysis TimePerformed AtPathologist Signature Potassium3.63.5 - 5.1 mmol/L06/21/2025 10:13 AM EDTINS[facility] ([facility]) Specimen (Source)Anatomical Location / LateralityCollection Method / Volume Collection TimeReceived TimeBloodArterial blood specimen / UnknownArterial Line / Wwctmhv9306/21/2025 8:54 AM EDT06/21/2025 9:28 AM EDT Narrative Authorizing ProviderResult TypeResult StatusJustin Cowan MDLAB BLOOD ORDERABLES Final ResultPerforming OrganizationAddressCity/State/ZIP CodePhone Number [facility] ([facility]) [address] [place] [address] * CT abdomen pelvis wo IV contrast [...] signed: Darnell Steel. 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 Next, [...] air kerma 210.5 mGy. Procedure Note Gordon Larsno MD - 06/20/2025 Fluoroscopy upper GI HISTORY: Remote history of gastric bypass, recently complicated by large bleeding marginal ulcer status post recent reversal of bypass. Evaluatefor leak COMPARISON: CT abdomen/pelvis 06/07/2025 FINDINGS: Preliminary data warehousing engineer radiograph of the abdomen were acquired. Next, [...] occlusive disease both legs. Authorizing ProviderResult TypeResult StatusMungustavo Juarez MDIMAdrianne CV VASCULAR PROCEDURESFinal Result * XR chest [...] deep vein thrombosis Authorizing ProviderResult TypeResult StatusFadi Limai IMG CV VASCULAR PROCEDURESFinal Result * (ABNORMAL) CBC (06/20/2025 6:09 AM EDT) Only the most recent of3 resultswithin the time period is included. ComponentValueRef RangeTest MethodAnalysis TimePerformed AtPathologist Signature Auto WBC5.714.00 - 10.60 10*3/uL06/20/2025 7:16 AM [facility] ([facility]) RBC3.26(L)3.80 - 5.70 10*6/uL06/20/2025 7:16 AM [facility] ([facility]) Hemoglobin9.4(L)12.0 - 17.0 g/dL06/20/2025 7:16 AM [facility] ([facility]) Wfzobctqrv31.9(L)36.0 - 50.0 %06/20/2025 7:16 AM [facility] ([facility]) MCV85.682.0 - 98.0 fL06/20/2025 7:16 AM [facility] ([facility])MCH28.827.0 - 33.0 pg06/20/2025 7:16 AM [facility] ([facility])MCHC33.732.0 - 35.0 g/dL06/20/2025 7:16 AM [facility] ([facility])RDW15.7(H)11.5 - 15.0 % 06/20/2025 7:16 AM [facility] ([facility])Vxvubsjnb980490 - 400 10*3/uL 06/20/2025 7:16 AM [facility] ([facility])Immature Platelet Fraction %13.0 (H)0.8 - 6.3 %06/20/2025 7:16 AM [facility] ([facility])Specimen (Source) Anatomical Location / LateralityCollection Method / VolumeCollection Time Received TimeBloodArterial blood specimen / UnknownArterial Line / Unknown 06/20/2025 6:09 AM EDT06/20/2025 6:43 AM EDT Narrative Authorizing ProviderResult TypeResult StatusJustin Cowan MDLAB BLOOD ORDERABLES Final ResultPerforming OrganizationAddressCity/State/ZIP CodePhone Number [facility] ([facility]) [address] [place] [address] * (ABNORMAL) Hemoglobin and hematocrit, blood (06/20/2025 12:40 AM EDT) Only the most recent of12 resultswithin the time period is included. ComponentValueRef RangeTest MethodAnalysis TimePerformed AtPathologist Signature Hemoglobin9.2(L)12.0 - 17.0 g/dL06/20/2025 12:58 AM [facility] ([facility])Xezqzruist98.8(L)36.0 - 50.0 %06/20/2025 12:58 AM [facility] ([facility])Specimen (Source)Anatomical Location / LateralityCollection Method / VolumeCollection TimeReceived TimeBloodArterial blood specimen / UnknownArterial Line / Dzdextl3106/20/2025 12:40 AM EDT06/20/2025 12:53 AM EDT Narrative Authorizing ProviderResult TypeResult StatusFaradha ENGLISH BLOOD ORDERABLES Final ResultPerforming OrganizationAddressCity/State/ZIP CodePhone Number [facility] ([facility]) [address] [place] [address] * Transfuse RBC (06/19/2025 2:20 PM EDT) Only the most recent of4 resultswithin the time period is included. Narrative Authorizing ProviderResult TypeResult StatusMillicent KHAN TRANSFUSION ORDERABLESFinal Result * Prepare RBC (06/19/2025 7:43 AM EDT) Only the most recent of5 resultswithin the time period is included. ComponentValueRef RangeTest MethodAnalysis TimePerformed AtPathologist Signature PRODUCT [id number] BLOOD BANKUnit [id number] BLOOD BANKUnit [facility] BLOOD BANKUnit [facility] BLOOD BANKDispense StatusREPEAK [facility] BLOOD BANK Blood Expiration [id number] BLOOD BANKProduct Blood Boti4793ZPQA BLOOD BANKUnit Pjqngl438hMTFFS BLOOD BANKPRODUCT MSBRY3672D68DCLT BLOOD BANKUnit [id number] BLOOD BANKUnit [facility] BLOOD BANKUnit [facility] BLOOD BANKDispense StatusREPEAK [facility] BLOOD BANKBlood Expiration [id number] BLOOD BANKProduct Blood Bceo2768XESW BLOOD BANKPRODUCT DELSS4360G23QMBD BLOOD BANK Unit [id number] BLOOD BANKUnit [facility] BLOOD BANKUnit RhNEGPEAK [facility]HAVIORAL [facility]ALTH SERVICES BLOOD BANKDispense Status[facility] BLOOD BANKBlood Expiration [id number] BLOOD BANKProduct Blood Iouy2675JURX BLOOD BANKPRODUCT NGFEL4872P02VRPX BLOOD BANKUnit [id number]-RYDSD BLOOD BANKUnit [facility] BLOOD BANKUnit RhNEG [facility] BLOOD BANKDispense StatusREPEAK BEH[facility]IOR[facility]ALTH SERVICES BLOOD BANKBlood Expiration [id number] [facility] BLOOD BANKProduct Blood Deul1135VFNV BLOOD BANK Narrative Authorizing ProviderResult TypeResult StatusSydney Constantino [facility]OOD BANK PRODUCT ORDERABLESFinal ResultPerforming OrganizationAddressCity/State/ZIP CodePhone Number [facility]OD [facility] * Type and screen (06/19/2025 3:46 AM EDT) Only the most recent of2 resultswithin the time period is included. ComponentValueRef RangeTest MethodAnalysis TimePerformed AtPathologist Signature ABO FvsxwoliC53/01/2025 4:46 AM [facility] BLOOD BANKRh FioyJJX8206/19/2025 4:46 AM [facility] BLOOD BANKAb HbwrFRC4006/19/2025 4:46 AM [facility] BLOOD BANKSpecimen (Source)Anatomical Location / LateralityCollection Method / VolumeCollection TimeReceived TimeBloodVenous blood specimen / UnknownArterial Line / Unknown 06/19/2025 3:46 AM EDT06/19/2025 3:58 AM EDT Narrative Authorizing ProviderResult TypeResult StatusJustin Cowan [facility] BLOOD BANK TEST ORDERABLESFinal ResultPerforming OrganizationAddressCity/State/ZIP CodePhone Number [facility]OD [facility] * Triglycerides every Thursday while patient is on Propofol (06/19/2025 3:46 AM EDT) Only the most recent of2 resultswithin the time period is included. ComponentValueRef RangeTest MethodAnalysis TimePerformed AtPathologist Signature Yxaxvrxewwktv378<150 mg/dL06/19/2025 5:24 AM [facility] ([facility]) Fasting?uixvreh0206/19/2025 5:24 AM [facility] ([facility])Specimen (Source) Anatomical Location / LateralityCollection Method / VolumeCollection Time Received TimeBloodVenous blood specimen / UnknownArterial Line / Unknown 06/19/2025 3:46 AM EDT06/19/2025 4:01 AM EDT Narrative Authorizing ProviderResult TypeResult StatusFadi Vance ENGLISH BLOOD ORDERABLES Final ResultPerforming OrganizationAddressCity/State/ZIP CodePhone Number [facility] ([facility]) [address] [place] [address] * (ABNORMAL) Arterial Blood Gases (06/18/2025 11:35 PM EDT)ComponentValueRef RangeTest MethodAnalysis TimePerformed AtPathologist SignaturepH, Arterial7.45 7.35 - 7.45006/18/2025 11:35 PM [facility] RESPIRATORY THERAPYpCO2, Mzjcsatb5748 - 45 mmHg06/18/2025 11:35 PM [facility] RESPIRATORY THERAPYpO2, Gjyynnec63(L)83 - 108 mmHg06/18/2025 11:35 PM [facility] RESPIRATORY THERAPYHCO3, Tgyhtftk46.021.0 - 28.0 mmol/L06/18/2025 11:35 PM [facility] RESPIRATORY THERAPYO2 Sat, Arterial 98.794.0 - 100.0 %06/18/2025 11:35 PM [facility] RESPIRATORY THERAPYBase Excess, Arterial1.3-2.0 - 3.0 mmol/L06/18/2025 11:35 PM [facility] RESPIRATORY THERAPY Oxyhemoglobin, Huytftst22.694.0 - 97.0 %06/18/2025 11:35 PM [facility] RESPIRATORY EQZLVJYIwuadqcodwo59.0??C006/18/2025 11:35 PM [facility] RESPIRATORY THERAPYLPM1.0LPM06/18/2025 11:35 PM [facility] RESPIRATORY THERAPYPF Ratio 06/18/2025 11:35 PM [facility] RESPIRATORY THERAPYComment:C^IncalculableA-aDo2 06/18/2025 11:35 PM [facility] RESPIRATORY THERAPYComment:C^IncalculablepaO2/pAO2 06/18/2025 11:35 PM [facility] RESPIRATORY THERAPYComment:C^IncalculableSpecimen (Source)Anatomical Location / LateralityCollection Method / VolumeCollection TimeReceived TimeBloodArterial blood specimen / Zmwlvef5006/18/2025 11:35 PM EDT 06/18/2025 11:35 PM EDT Narrative Authorizing ProviderResult TypeResult StatusJustin Cowan MDLAB BLOOD ORDERABLES Final ResultPerforming OrganizationAddressCity/State/ZIP CodePhone Number [facility] RESPIRATORY THERAPY [address] [place] [address], * Transfuse fresh frozen plasma (06/18/2025 12:22 AM EDT) Narrative Authorizing ProviderResult TypeResult StatusJulienne Renteria MDBLOOD TRANSFUSION ORDERABLESFinal Result * Blood culture, peripheral #2 (06/17/2025 3:09 PM EDT) Only the most recent of2 resultswithin the time period is included. ComponentValueRef RangeTest MethodAnalysis TimePerformed AtPathologist Signature Blood CultureNo growth at 5 days SABI 06/22/2025 4:01 PM [facility] ([facility])Specimen (Source)Anatomical Location / LateralityCollection Method / VolumeCollection TimeReceived TimeBlood Venous blood specimen / UnknownVenipuncture / Ropfzre0706/17/2025 3:09 PM EDT 06/17/2025 3:17 PM EDT Narrative Authorizing ProviderResult TypeResult StatusFadi Safisatu ENGLISH MICROBIOLOGY - GENERAL ORDERABLESFinal ResultPerforming OrganizationAddressCity/State/ZIP Code Phone Number [facility] ([facility]) [address] [place] [address] * (ABNORMAL) Hepatic function panel (06/17/2025 10:40 AM EDT)ComponentValueRef RangeTest MethodAnalysis TimePerformed AtPathologist SignatureTotal Bilirubin 0.80.3 - 1.0 mg/dL06/17/2025 12:30 PM [facility] ([facility])Bilirubin, Direct0.20 - 0.2 mg/dL06/17/2025 12:30 PM [facility] ([facility]) Alkaline Gzyfvszlblx8130 - 104 U/L06/17/2025 12:30 PM [facility] ([facility])AST8(L)13 - 39 U/L06/17/2025 12:30 PM [facility] ([facility])ALT (SGPT)4(L)7 - 52 U/L06/17/2025 12:30 PM [facility] ([facility])Total Protein5.2(L)6.0 - 8.3 g/dL06/17/2025 12:30 PM [facility] ([facility]) Albumin3.0(L)3.5 - 5.7 g/dL06/17/2025 12:30 PM [facility] ([facility]) Specimen (Source)Anatomical Location / LateralityCollection Method / Volume Collection TimeReceived TimeBloodVenous blood specimen / UnknownExisting Catheter / Zzxfmit7906/17/2025 10:40 AM EDT06/17/2025 10:47 AM EDT Narrative Authorizing ProviderResult TypeResult StatusJustin Cowan MDLAB BLOOD ORDERABLES Final ResultPerforming OrganizationAddressCity/State/ZIP CodePhone Number [facility] ([facility]) [address] [place] [address] * (ABNORMAL) Arterial Blood Gas Complete (06/17/2025 4:02 AM EDT) Only the most recent of7 resultswithin the time period is included. ComponentValueRef RangeTest MethodAnalysis TimePerformed AtPathologist Signature pH, Arterial7.367.35 - 7.45006/17/2025 4:02 AM [facility] RESPIRATORY THERAPYpCO2, Ifhjsauo7140 - 45 mmHg06/17/2025 4:02 AM [facility] RESPIR[facility] THERAPYpO2, Stofedhe312(H)83 - 108 mmHg06/17/2025 4:02 AM [facility] RESPIR[facility]ORY THERAPYHCO3, Jaobuwbl93.3(L)21.0 - 28.0 mmol/L06/17/2025 4:02 AM [facility] THERAPY O2 Sat, Qfnjbyeg353.094.0 - 100.0 %06/17/2025 4:02 AM [facility] RESPIRATORY THERAPYBase Excess, Arterial-4.6(L)-2.0 - 3.0 mmol/L06/17/2025 4:02 AM [facility]cium Ionized, Arterial1.171.13 - 1.32 mmol/L06/17/2025 4:02 AM [facility] RESP[facility] THERAPYSodium, Upttbzxe113874 - 146 mmol/L06/17/2025 4:02 AM [facility] RES[facility] THERAPYPotassium, Arterial3.2(L)3.4 - 5.2 mmol/L 06/17/2025 4:02 AM [facility] RESP[facility] THERAPYChloride, Fbwmeobl014(H)98 - 107 mmol/L06/17/2025 4:02 AM [facility] RESPIR[facility]ORY THERAPYGlucose, Lkuteesr165(H)65 - 95 mg/dL06/17/2025 4:02 AM [facility] RESPIR[facility]ORY THERAPYLactate, Arterial0.800.36 - 1.39 mmol/L06/17/2025 4:02 AM [facility]ITALHematocrit, Arterial 29(L)37 - 50 %06/17/2025 4:02 AM [facility] RESPIRATORY THERAPYHemoglobin, Arterial 9.6g/dL06/17/2025 4:02 AM [facility]ITALOxyhemoglobin, Jpdbsuzi48.7 (H)94.0 - 97.0 %06/17/2025 4:02 AM [facility]ITALMethemoglobin, Arterial0.60.0 - 1.5 %06/17/2025 4:02 AM [facility] Carboxyhemoglobin, Arterial1.8%06/17/2025 4:02 AM [facility] Deoxyhemoglobin, Arterial0.0%06/17/2025 4:02 AM [facility] THERAPY Kxcucwmigqq52.0??C006/17/2025 4:02 AM [facility] OYRVZVLVeT643.0% 06/17/2025 4:02 AM [facility] THERAPYTotal Minute Volume9.9L06/17/2025 4:02 AM [facility] JEXEPXUNTPI3ge H2O06/17/2025 4:02 AM [facility] THERAPYPF Vmfgz409foVf23/30/2025 4:02 AM [facility] THERAPY A-yZp6599qsXe18/30/2025 4:02 AM [facility] RES[facility]ORY THERAPYpaO2/pAO20.45mmHg 06/17/2025 4:02 AM [facility] RESPIRATORY THERAPYSpecimen (Source)Anatomical Location / LateralityCollection Method / VolumeCollection TimeReceived TimeBlood Arterial blood specimen / Zxlmxrm0306/17/2025 4:02 AM EDT06/17/2025 4:02 AM EDT Narrative Authorizing ProviderResult TypeResult StatusJulienne Renteria MDLAB BLOOD ORDERABLESFinal ResultPerforming OrganizationAddressCity/State/ZIP CodePhone Number [facility] RESPIRATORY THERAPY [address] [place] [address], * Lactic acid with 4 hour reflex (06/17/2025 3:47 AM EDT)ComponentValueRef Range Test MethodAnalysis TimePerformed AtPathologist SignatureLactate0.80.5 - 2.2 mmol/L06/17/2025 4:20 AM [facility] ([facility])Specimen (Source) Anatomical Location / LateralityCollection Method / VolumeCollection Time Received TimeBloodVenous blood specimen / UnknownArterial Line / Unknown 06/17/2025 3:47 AM EDT06/17/2025 3:56 AM EDT Narrative Authorizing ProviderResult TypeResult StatusJulienne ENGLISH BLOOD ORDERABLESFinal ResultPerforming OrganizationAddressCity/State/ZIP CodePhone Number [facility]) [address] [place] [address] * HEPTEM C (06/17/2025 12:32 AM EDT)ComponentValueRef RangeTest MethodAnalysis TimePerformed AtPathologist SignatureHEPTEM C CLOTTING LEJF404754 - 215 s 06/17/2025 12:32 AM [facility] RESPIRATORY THERAPYHEPTEM C AMPLITUDE 5 DJX8420 - 51 mm06/17/2025 12:32 AM [facility] RESPIRATORY THERAPYHEPTEM C AMPLITUDE 10 MIN 5644 - 61 mm06/17/2025 12:32 AM [facility] RESPIRATORY THERAPYHEPTEM C AMPLITUDE 20 RTV9128 - 67 mm06/17/2025 12:32 AM [facility] RESPIRATORY THERAPYHEPTEM C MAXIMUM CLOT OLKRYPMN2104 - 69 mm06/17/2025 12:32 AM [facility] RESPIRATORY THERAPYSpecimen (Source)Anatomical Location / LateralityCollection Method / VolumeCollection TimeReceived LjrwPhjjy89/30/2025 12:32 AM EDT06/17/2025 12:32 AM EDT Narrative Authorizing ProviderResult TypeResult StatusJulienne Renteria [facility] BLOOD ORDERABLESFinal ResultPerforming OrganizationAddressCity/State/ZIP CodePhone Number [facility] RESPIRATORY THERAPY [address] [place] [address], [place] * (ABNORMAL) FIBTEM C (06/17/2025 12:32 AM EDT)ComponentValueRef RangeTest MethodAnalysis TimePerformed AtPathologist SignatureFIBTEM C AMPLITUDE 5 MIN17 (H)5 - 16 mm06/17/2025 12:32 AM [facility] RESPIRATORY THERAPYFIBTEM C AMPLITUDE 10 MIN19(H)6 - 17 mm06/17/2025 12:32 AM [facility] RESPIRATORY THERAPYFIBTEM C AMPLITUDE 20 MIN20(H)6 - 18 mm06/17/2025 12:32 AM [facility] THERAPY FIBTEM C MAXIMUM CLOT CRESAJOO25(H)6 - 19 mm06/17/2025 12:32 AM [facility] RESPIRATORY THERAPYSpecimen (Source)Anatomical Location / LateralityCollection Method / VolumeCollection TimeReceived QndpSqkjq88/30/2025 12:32 AM EDT 06/17/2025 12:32 AM EDT Narrative Authorizing ProviderResult TypeResult Juan Renteria [facility] BLOOD ORDERABLESFinal ResultPerforming OrganizationAddressCity/State/ZIP CodePhone Number [facility] RESPIRATORY THERAPY [address] [place] [address], [place] * (ABNORMAL) EXTEM C (06/17/2025 12:32 AM EDT)ComponentValueRef RangeTest Method Analysis TimePerformed AtPathologist SignatureEXTEM C CLOTTING CHYT1586 - 73 s 06/17/2025 12:32 AM [facility] RESPIRATORY THERAPYEXTEM C AMPLITUDE 5 RQG1041 - 52 mm06/17/2025 12:[facility] TH[facility]YEXTEM C AMPLITUDE 10 MIN60 45 - 62 mm06/17/2025 12:32 AM [facility] RESPIRATORY THERAPYEXTEM C AMPLITUDE 20 RFH4468 - 69 mm06/17/2025 12:32 AM [facility] RESPIRATORY THERAPYEXTEM C MAXIMUM CLOT OLQWELVO6616 - 72 mm06/17/2025 12:32 AM [facility] RESPIR[facility]ORY THERAPYEXTEM C LYSIS INDEX 60 LKD0043 - 100 %06/17/2025 12:32 AM [facility] RESPIRATORY THERAPYEXTEM C MAXIMUM LYSIS7(H)0 - 6 %06/17/2025 12:32 AM [facility] RESPIRATORY THERAPYComment:ID^Preliminary ResultSpecimen (Source)Anatomical Location / LateralityCollection Method / VolumeCollection TimeReceived TimeBlood 06/17/2025 12:32 AM EDT06/17/2025 12:32 AM EDT Narrative Authorizing ProviderResult TypeResult StatusJulienne Renteria [facility] BLOOD ORDERABLESFinal ResultPerforming OrganizationAddressCity/State/ZIP CodePhone Number [facility]IR[facility] THERAPY [address] [place] [address], * INTEM C (06/17/2025 12:32 AM EDT)ComponentValueRef RangeTest MethodAnalysis TimePerformed AtPathologist SignatureINTEM C CLOTTING EGHQ150714 - 205 s 06/17/2025 12:32 AM [facility] RESPIRATORY THERAPYINTEM C AMPLITUDE 5 QAU1212 - 54 mm06/17/2025 12:32 AM [facility] RESPIRATORY THERAPYINTEM C AMPLITUDE 10 MIN58 46 - 63 mm06/17/2025 12:32 AM [facility] RESPIRATORY THERAPYINTEM C AMPLITUDE 20 BTG0416 - 68 mm06/17/2025 12:32 AM [facility] RESPIRATORY THERAPYINTEM C MAXIMUM CLOT SRHKXLDB6175 - 70 mm06/17/2025 12:32 AM [facility] RESPIRATORY THERAPYINTEM C LYSIS INDEX 60 GQL5481 - 100 %06/17/2025 12:32 AM [facility] RESPIRATORY THERAPYINTEM C MAXIMUM LYSIS70 - 7 %06/17/2025 12:32 AM [facility] RESPIRATORY THERAPYComment:ID^Preliminary ResultSpecimen (Source)Anatomical Location / LateralityCollection Method / VolumeCollection TimeReceived TimeBlood 06/17/2025 12:32 AM EDT06/17/2025 12:32 AM EDT Narrative Authorizing ProviderResult TypeResult StatusJill Dexter MDLAB BLOOD ORDERABLESFinal ResultPerforming OrganizationAddressCity/State/ZIP CodePhone Number [facility] RESPIRATORY THERAPY [address] [place] [address], * Histology - tissue exam (06/17/2025 12:17 AM EDT)ComponentValueRef RangeTest MethodAnalysis TimePerformed AtPathologist SignatureCase ReportSurgical Pathology ?Case: [id number] ? Authorizing Provider: ??Roberth Cowan MD ? Collected: ? 06/17/2025 0017 ? Ordering Location: ? [facility] Main Operating Room ?? Received: ?06/20/2025 0833 ? Pathologist: ? Ta Tobias MD ? Specimens: ?? A) - Gastric, Gastrojejunostomy ? B) - Gastric, RENE ? 06/21/2025 4:36 PM [facility] ([facility])Final DiagnosisA. Labeled gastrojejunostomy : Ulcerated small bowel with acute serositis and fibrovascular adhesions. No malignancy identified. Stapled jejunal resection margin viable. B. Labeled RENE : Benign small bowel. No activity, celiac disease, dysplasia or malignancy identified. Resection margins viable.06/21/2025 4:36 PM [facility] ([facility]) at 1636 EDTClinical InformationPost-Op Diagnoses K92.0 - Hematemesis, unspecified whether nausea present [ICD-10-CM] K28.9 - Marginal ulcer [ICD-10-CM] 06/21/2025 4:36 PM [facility] ([facility])Gross DescriptionA. Gastric. The specimen is received in formalin labeled Jamarcus Cox Weyer and Gastrojejunostomy. It consists 10.0 x 5.0 [...] transmural defect. Gross photographs are taken and guest services representative sections are submitted as follows: A1-A3: Fibrotic central area A4: Defect, outpouched end A5: Defect A6: Jejunal margin, en face Peace Ramires, Pathologists' Metal Fabricator Helper student Katharina Perez Pathologists' Metal Fabricator Helper Marija Gastric. The specimen is received in formalin labeled Jamarcus Cox Weparas and RENE. It consists of a 14.3 x 10.2 cm unoriented portion of small bowel received with 2 stapled margins and scant attached adipose tissue. The serosal surface is austin- pink and smooth; the mucosa is austin-pink, folded, and glistening. No lymph nodes are identified. Compounding Assistant sections are submitted in 3 cassettes with the margins in B1-B2. Peace Ramires, Pathologists' Metal Fabricator Helper student 06/21/2025 4:36 PM [facility] ([facility])Microscopic Description Microscopic examination performed.06/21/2025 4:36 PM [facility] ([facility])Specimen (Source)Anatomical Location / LateralityCollection Method / VolumeCollection TimeReceived TimeTissue (Gastric)06/17/2025 12:17 AM EDT 06/20/2025 8:33 AM EDTComment:Pre-op diagnosis: Hematemesis, unspecified whether nausea present [K92.0] Marginal ulcer [K28.9]Tissue specimen (specimen) (Gastric)06/17/2025 1:19 AM EDT 06/17/2025 1:42 PM EDTComment:Pre-op diagnosis: Hematemesis, unspecified whether nausea present [K92.0] Marginal ulcer [K28.9] Narrative Authorizing ProviderResult TypeResult StatusJustin [facility] MDL[facility] PATHOLOGY ORDERABLESFinal ResultPerforming OrganizationAddressCity/State/ZIP CodePhone Number [facility] [address] [place] [address] * Prepare fresh frozen plasma: 1 Units (06/16/2025 8:10 PM EDT)ComponentValueRef RangeTest MethodAnalysis TimePerformed AtPathologist SignaturePRODUCT CODE [id number] BLOOD BANKUnit [id number] BLOOD BANKUnit ABOAUT BLOOD BANKUnit RhPOSPEAK [facility]AL [facility] BLOOD BANKDispense StatusTRPEAK [facility]AL [facility]ALTH SERVICES BLOOD BANKBlood Expiration [id number] BLOOD BANKProduct Blood Hdjy0716PJUI BLOOD BANKUnit Uzduov120qBNLND BLOOD BANKSpecimen (Source)Anatomical Location / LateralityCollection Method / VolumeCollection TimeReceived TimeBloodVenous blood specimen / Unknown Narrative Authorizing ProviderResult TypeResult StatusJulienne Renteria MDBLOOD BANK PRODUCT ORDERABLESFinal ResultPerforming OrganizationAddressCity/State/ZIP Code Phone Number [facility] BLOOD BANK * EGD (06/16/2025 6:26 PM [...] on 06/16/25) Attending Physician: ??Edd Law MD Metal Fabricator Helper: ??None Procedure Details: Informed consent was obtained [...] PM EDT)ComponentValueRef RangeTest MethodAnalysis TimePerformed AtPathologist SignaturePRU Lgzd497007 - 376 PRU 06/16/2025 3:20 PM [facility])Specimen (Source)Anatomical Location / LateralityCollection Method / VolumeCollection TimeReceived Time Blood06/16/2025 3:23 PM EDT06/16/2025 3:23 PM EDT Narrative Authorizing ProviderResult TypeResult StatusLuciano Woodard MDLAB BLOOD ORDERABLES Final ResultPerforming OrganizationAddressCity/State/ZIP CodePhone Number [facility]) [address] [place] [address] * Platelet Inhibition, P2Y12 Draw (06/16/2025 2:57 PM EDT)Specimen (Source) Anatomical Location / LateralityCollection Method / VolumeCollection Time Received TimeBloodVenous blood specimen / UnknownArterial Line / Unknown 06/16/2025 2:57 PM EDT06/16/2025 3:04 PM EDT Narrative Authorizing ProviderResult TypeResult StatusJulienne Renteria MDLAB BLOOD ORDERABLESFinal ResultPerforming OrganizationAddressCity/State/ZIP CodePhone Number [facility]) [address] [place] [address] * (ABNORMAL) Protime-INR (06/16/2025 10:49 AM EDT) Only the most recent of2 resultswithin the time period is included. ComponentValueRef RangeTest MethodAnalysis TimePerformed AtPathologist Signature Bhiiavj60.5(H)12.3 - 14.8 Ahyukii4906/16/2025 11:17 AM [facility] ([facility])INR1.33(H)0.90 - 1.10006/16/2025 11:17 AM [facility]) Comment: [facility] RECOMMENDED INR FOR WARFARIN THERAPY CONDITION ?INR [...] TimeBloodVenous blood specimen / UnknownArterial Line / Otniqpj8706/16/2025 10:49 AM EDT06/16/2025 10:57 AM EDT Narrative Authorizing ProviderResult TypeResult StatusJulienne Renteria MDLAB BLOOD ORDERABLESFinal ResultPerforming OrganizationAddressCity/State/ZIP CodePhone Number [facility] [address] [place], [place] [id number] * ABDOMINAL ANGIOGRAM (06/15/2025 5:18 PM EDT)Anatomical RegionLaterality ModalityOtherSpecimen (Source)Anatomical Location / LateralityCollection Method / VolumeCollection TimeReceived Time Narrative 06/15/2025 6:00 PM EDT This order was resulted via OpNote or Post Procedure Note. If those notes are not displayed in this report, please refer to the Notes tab. Authorizing ProviderResult TypeResult StatusRosaura Mesalynne [facility] [place]IVE VASCULAR PROCEDURESFinal Result * Peripheral IV (06/15/2025 4:19 PM EDT) Khushbu Shaw CAA - 06/15/2025 4:19 PM EDT JOSIE Zapata 06/15/2025 4:33 PM Peripheral IV Date/Time: 06/15/2025 4:19 PM Inserted by: Leda Pitts MD Placement Needle size: 14 G Laterality: right Location: external jugular Local anesthetic: none Site prep: alcohol Technique: anatomical landmarks Attempts: 1 Authorizing ProviderResult TypeResult Tammy VILLALBA ORDERABLESFinal Result * ANESTHESIA ARTERIAL LINE PLACEMENT (06/15/2025 4:15 PM EDT) Leda Edward MD - 06/15/2025 4:15 PM EDT Leda [...] And Ultrasound probe cover. VSS. Staffing Performed: resident/DIRECTOR SALES SUPPORT/JOSIE Anesthesiologist: Leda Pitts MD Resident/DIRECTOR SALES SUPPORT: Mateus Cool MD Performed by: Mateus Cool MD Authorized by: Leda Pitts MD ?? Authorizing ProviderResult TypeResult Tammy VILLALBA ORDERABLESFinal Result * EGD (06/15/2025 3:14 PM [...] Versed 4 Attending Physician: ??Barrie Lanier MD Metal Fabricator Helper: Michael Barillas MD Procedure Details: Informed consent [...] for the entire procedure. Authorizing ProviderResult TypeResult StatusSaks Yannick MDENDOSCOPY PROCEDURE ORDERABLESFinal Result * CTA Abdomen [...] the uncomplicated intravenous administration of 100 mL Gmbksewtx501. 3-D maximum intensity projection reconstructions constructed underconcurrent [...] Larson MD. Authorizing ProviderResult TypeResult StatusFadi Safi MDG CT PROCEDURESFinal Result * XR chest 2 views (06/06/2025 1:48 PM EDT)Anatomical RegionLateralityModality ChestComputed Radiography Narrative Authorizing ProviderResult TypeResult StatusHistorical Provider MDIMG XR PROCEDURESFinal Result * ECG 12 lead (06/05/2025 4:29 PM EDT) Only the most recent of2 resultswithin the time period is included. ComponentValueRef RangeTest MethodAnalysis TimePerformed AtPathologist Signature Ventricular Shzb57ZJRHU MUSEAtrial Vqkm11FNWSY MUSEPR Nwefesgo215tsVR MUSEQRS ICDELMQS791voCX MUSEQT Mqheraja767efLF MUSEQTC CALCULATION(BAZETT)493msGE MUSE Y-Dgov-21rtiedvzKH MUSET Wave Tuop746akklhqeRW MUSESpecimen (Source)Anatomical Location / LateralityCollection Method / [...] 4:58:05 PM Authorizing ProviderResult TypeResult StatusPaarmando Lim MDECAdrianne ORDERABLESFinal ResultPerforming OrganizationAddressCity/State/ZIP CodePhone Number [facility] MUSE * IMPLANT PPM (06/05/2025 3:52 [...] using modified seldinger technique using a 5 Omani micro-puncture needle on two occasions and 0.35 [...] for the device above the muscle. 6/9 Omani Safesheaths were placed over the wire. An active fixation Biotronik pacing lead was then delivered through the 9Fsheath and Selectra IIID-65/42 sheath to the right ventricle. After confirmation of lead position on orthogonal views (BROOKS and HONDURAN) to confirm septal position, the screw was [...] lead position on orthogonal views (BROOKS and HONDURAN), the screw was activated. Good sensing parameters, [...] stable. COMPLICATIONS: None. Authorizing ProviderResult TypeResult StatusPaul Raphael [facility] [place] ELECTROPHYSIOLOGY PROCEDURESFinal Result from Last 3 Months Insurance Advance Directives * Full Code (Latest Code Status on File) Date ActivatedDate InactivatedComments06/15/2025 5:51 AM06/28/2025 2:24 PM * Full Code Date ActivatedDate InactivatedComments06/05/2025 3:54 PM06/05/2025 7:49 PM Care Teams Team MemberRelationshipSpecialtyStart DateEnd Date Jaden Crabtree DO [address] [place] [id number] PCP - GeneralFamily Medicine04/25/25 Bhupendra Painter MD [address] [place], [place] [address] [id number] Consulting PhysicianUrology06/22/25
--- OUTSIDE RECORDS SUMMARY | 2025-09-01 09:39 | XMS_ITS | Clinical Summary ---
Author Organization [facility] Address [address] [place] [address] Phone Care Team Providers Care Account Liaison Name Role Phone Barbie Crabtreett Eunice DO Primary Care Provider [phone] Social History Tobacco UseTypesPacks/DayYears UsedDateSmoking Tobacco: Never AssessedSex and Gender InformationValueDate RecordedSex Assigned at BirthNot on fileLegal Sex Male09/12/2022 8:17 PM ESTGender IdentityNot on fileSexual OrientationNot on file Last Filed Vital Signs Vital SignReadingTime TakenCommentsBlood Blaxgwdt98/6810 2:23 PM EDT Agdhe666308/16/2021 2:21 PM EDTTemperature--Respiratory Rate--Oxygen Saturation-- Inhaled Oxygen Concentration--Jypdmo110 kg (224 lb)08/16/2021 2:21 PM EDTHeight 177.8 cm (5' 10 )08/16/2021 2:21 PM EDTBody Mass Index32.141 2:21 PM EDT Plan of Treatment Health MaintenanceDue DateLast DoneCommentsCT Swyojdoyeplf1958Colonoscopy 1958Colorectal Cancer Dncdnlzkl1958FIT-DNA (Cologuard)1958FIT 1958Lipid Panel1958 8817Tjvrselzsqjxs1958Yearly Adult Physical 1958MMR Vaccines (1 of 1 - Standard series)1959Diabetes Screening 1976Hepatitis C Izfuxemti31/25/1976Pneumococcal Vaccine (1 of 2 - PCV) 1977DTaP/Tdap/Td Vaccines (1 - Tdap)1980PSA Prostate Cancer Fxlqrhlpi75/25/2008RSV High Risk: (Elderly (60+) or Population) (1 - Risk 50-74 years 1-dose series)2008Zoster Vaccines (1 of 2)2008 Influenza Vaccine (#1)2025OVID-19 Vaccine ( - 2024- season)2025 HIB VaccinesAged OutNo longer [...] DateEnd Date Jaden Crabtree DO PCP - Udrakhm81/29/21
--- OUTSIDE RECORDS SUMMARY | 2025-09-01 09:39 | XMS_ITS | Clinical Summary ---
Author Organization [facility] Address [address] [place] [address] Care Team Providers Care Commercial Drone Software Developer Name Role Phone Unavailable Primary Care Provider Unavailabl e Social History Tobacco UseTypesPacks/DayYears UsedDateSmoking Tobacco: Never AssessedSex and Gender InformationValueDate RecordedSex Assigned at BirthNot on fileLegal Sex Male12/31/2022 7:03 PM EDTGender IdentityNot on fileSexual OrientationNot on file Last Filed Vital Signs Vital SignReadingTime TakenCommentsBlood Fvsykiai286/6604 12:00 PM EDT Pulse--Temperature--Respiratory Rate--Oxygen Saturation--Inhaled Oxygen Concentration--Wcgwfi919 kg (246 lb)01/24/2019 12:00 PM FKEEyiewy652.3 cm (5' 11 )01/24/2019 12:00 PM EDTBody Mass Index34.31001/24/2019 12:00 PM EDT Plan of Treatment Not on file
--- OUTSIDE RECORDS SUMMARY | 2025-09-01 09:39 | XMS_ITS | Encounter Summary ---
Author Organization [facility] Address [address] [place] [address] Care Team Providers Care Neurology Tech Name Role Phone Unavailable Primary Care Provider Unavailabl e Encounter Details DateTypeDepartmentCare Team (Latest Contact Info)Rifvmkajicn13/23/2024Clinisync Result Encounter [facility] Unsolicited Tracey Marin, [address], [address] [address] Social History Tobacco UseTypesPacks/DayYears UsedDateSmoking Tobacco: Never AssessedSex and Gender InformationValueDate RecordedSex Assigned at BirthNot on fileLegal Sex Male12/31/2022 7:03 PM EDTGender IdentityNot on fileSexual OrientationNot on filedocumented as of this encounter Plan of Treatment Not on file documented as of this encounter Procedures Procedure NamePriorityDate/TimeAssociated DiagnosisCommentsSEGMENTAL BLOOD XEGXPYKO56/23/2024 1:01 PM EDT documented in this encounter Results * SEGMENTAL BLOOD PRESSURE (03/10/2024 1:01 PM EDT)Anatomical RegionLaterality ModalityRadiographic ImagingSpecimen (Source)Anatomical Location / Laterality Collection Method / VolumeCollection TimeReceived Time03/10/2024 1:01 PM EDT Narrative 03/10/2024 1:04 PM EDT [facility] ?[address] ? [place] [address] ?Vein Report ? Signed ? Patient: ALISIA CORREA ?MR#: [id number] ?? : 1960 ?Acct:[id number] ?? Age/Sex: 63 / M ?ADM Date: 05/23/24 ?? Loc: VC ? Attending Dr: Tracey Marin M.D. ? Ordering Physician: Tracey Marin M.D. ?? Date of Service: 05/23/24 ?? Procedure(s): VC SEGMENTAL PRESSURES ?? Accession Number(s): [id number] ? cc: ELLEN ARIAS ; Tracey Marin M.D. ? [facility] ? [address] ? [place] [address] ? Patient Name: ?? ALISIA CORREA ? MRN: [facility]:[id number] ? date: 1960 ?Sex: M ?? Assigned Patient Location: VC ?? Current Patient Location: VC ?? Accession/Order Number: [id number] ?? Exam Date: 03/10/2024 ??10:11 ?Report Date: 03/10/2024 ??13:01 ? At the request of: ?? TRACEY ??BEATRIZ ? Procedure: ??VC SEGMENTAL PRESSURES ? EXAM: BILATERAL LOWER EXTREMITY ARTERIAL SEGMENTAL PRESSURES ? HISTORY: I79.3 PVD Peripheral vascular disease ? Indication: Limb ischemia, gangrene ? COMPARISON: None ? FINDINGS: ? Segmental pressures presented as follows (right, left) in mmHg. ? Brachial: 111, 127. ?? Upper thigh: 157, not obtained. ?? Lower thigh: 163, 177. ?? Calf: 150, 150. ?? DPA: 123, 147. ?? UTILIZATION SPECIALIST: 138, 147. ?? 1st Toe: 77, 59 ? ANUJA: 1.09, 1.16 ?? TBI: 0.61, 0.46 ? The ABIs are normal ?? The TBI's are acceptable ? PVR waveforms: ? Right leg: ?? Thigh: Normal ?? Above knee: Delayed systolic upstroke ?? Below knee: Delayed systolic upstroke ?? Right ankle: Delayed systolic upstroke with blunting ? Left leg: ?? Thigh: Unable to be obtained ?? Above knee: Delayed systolic upstroke with wanting ?? Below knee: Normal ?? Right ankle: Delayed systolic upstroke with blunting ? VEIN/VC SEGMENTAL PRESSURES ?? IMPRESSION: ? ABIs are within normal limits ? PVR waveforms suggest mild to moderate peripheral arterial disease ? 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 Electronically authenticated by: LIZETH ??SHARONDA ?? Date: 03/10/2024 ??13:01 ? Dictated By: ?Lizeth Mcdonough M.D. ? Signed By: ?05/23/24 1304 ? DD/ 1301 ? TD/TT: ? Scout Leaser: Procedure Note Radiology, Radiologist, - 03/10/2024 [place] [address] Vein Report Signed Patient: ALISIA CORREA LMR#: [id number] : 1960cct:[id number] Age/Sex: 63 / MADM Date: 03/10/24 Loc: VC Attending Dr: Tracey Marin M.D. Ordering Physician: Tracey Marin M.D. Date of Service: 03/10/24 Procedure(s): VC SEGMENTAL PRESSURES Accession Number(s): [id number] cc: ELLEN ARIAS ; Tracey Marin M.D. The [address] [address] Patient Name: ALISIA CORREA MRN: [id number] date: 1960 Sex: M Assigned Patient Location: Current Patient Location: Accession/Order Number: [id number] Exam Date: 03/10/2024 10:11 Report Date: 03/10/2024 [...] 177. Calf: 150, 150. DPA: 123, 147. UTILIZATION SPECIALIST: 138, 147. 1st Toe: 77, 59 ANUJA: [...] M.D. Signed By:03/10/24 1304 DD/ 1301 TD/TT: Scout Leaser: Authorizing ProviderResult TypeResult StatusMohamed Yves TAVERAS XR PROCEDURES Final Result documented in this encounter Visit Diagnoses Not on filedocumented in this encounter
--- OUTSIDE RECORDS SUMMARY | 2025-09-01 09:40 | XMS_ITS | Clinical Summary ---
Author Organization [employer] tem Address [id number] [address] [place] [address] Care Team Providers Care Sampler Pickup Name Role Phone Jaden Crabtree DO Primary Care Provider [phone] Allergies Active AllergyReactionsCriticalityNoted DateCommentsCelecoxibHives,RashHigh 06/04/2017 Other reaction(s): GI Upset, Unknown GdewzgwoxrFibncngOzdduw37/17/4555Mmmtfldzvuuh10/01/2021 Other reaction(s): Unknown Erythromycin BaseHives,Shortness Of ZsbepzElbf84/19/2004LevofloxacinHivesMedium 01/29/2010 Other reaction(s): Unknown MoxifloxacinHives,Itching,Rash,Shortness Of TtgmziHlkd42/02/2006Pimavanserin Hives08/23/2020 Medications MedicationSigDispense QuantityRefillsLast FilledStart DateEnd DateStatus [...] tablet Indications: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)2 tabs daily as directed 180 tablet ctive zinc oxide 20 % ointment Apply 1 Application topically as needed.Active sulfamethoxazole-trimethoprim (BACTRIM DS) 800-160 mg per tablet Take 1 tablet by mouth in the morning and 1 tablet before bedtime. Taking Thursday, Thursday, Thursday.09/05/2024Active carbidopa-levodopa (SINEMET CR) 25-100 mg per CR tablet Indications:Parkinson's disease ([facility])TAKE 1 TABLET BY MOUTH AT 2AM, 2 [...] (SINEMET) 25-100 mg per tablet Indications:Parkinson's disease ([facility])TAKE 2 TABLETS BY MOUTH AT 6AM AND [...] mg tablet Indications:Psychosis due to Parkinson's disease ([facility])Take half tab nightly for 1 week, then may increase to full tab 90 tablet 3105Active Active Problems ProblemNoted DateDiagnosed DateOpen wound of left great toe03/16/2025 Overview (03/16/2025): PVR with toe pressures Assessment & Plan (03/16/2025 11:16 AM EDT): PVR with toe pressure Encounter for abdominal aortic aneurysm (AAA) cgqzmzecy28/11/2024 Assessment & Plan (03/16/2025 11:16 AM EDT): No abdominal aortic aneurysms on screening duplex ultrasound. Assessment & Plan (01/28/2024 9:40 AM EDT): AAA duplex US Critical limb ischemia of both lower extremities with ewfpqfvv03/11/2024 Overview (01/28/2024): Bilateral toe wounds nonhealing, no [...] wounds nonhealing, no PVR or testing Generalized xruthwgg27/02/2023Shy-Drager asphxkdi88/28/2021Walking difficulty due to ankle and foot02/08/2021Type 2 diabetes mellitus with circulatory disorder, without long-term current use of wrnewjt04/23/2021Parkinson disease 1Parkinson's wjkxckk2802/03/2021Falls bcthripfdi84/11/2020Near syncope 08/29/20205481Gmfvzpyjaqu30/11/2020Right foot drop08/29/2020Multifactorial gait mpoxteja01/11/2020Osteoarthritis of right hip05/03/2020Tobacco use04/24/2020 Overview (10/01/2021): Last Assessment & Plan: Assessment: 60 pack years Currently 1/2 pack day since 01/2020 Cessation with strategies encouraged. Megaloblastic anemia due to vitamin B12 zqvmqgzykh67/13/2020Open wound of left heel11/08/20199742Rccijtaek03/26/2019MGUS (monoclonal gammopathy of unknown significance)09/15/2018Spinal cord stimulator rmkwyh6309/07/2018 Overview (10/01/2021): Last Assessment & Plan: Assessment: for LBP generator in right hip Aware to bring remote on DOS Complete tear of right rotator cuff08/02/2018Iron deficiency anemia secondary to inadequate dietary iron szzwdc6806/16/2018Multilevel spine pain06/02/2018Obesity, Class I, BMI 30-34.9003/17/2018CRPS (complex regional pain syndrome type I) 03/16/2018Status post replacement of left shoulder joint02/08/2018Asthma 12/07/2017Essential vrxgjfirlrcy45/19/2018 Overview (10/01/2021): Last Assessment & Plan: Assessment: Medication for Control. Date: BP: 04/24/2020 115/80 Stable. Jmtwrcdvzasexh11/19/2018 Overview (10/01/2021): Last Assessment & Plan: Assessment: stable on medication Diabetes /19/2018 Overview (10/01/2021): Last Assessment & Plan: Assessment: stable on oral medication Hemoglobin A1C (%) Date Value 05/18/2018 5.9 06/17/2017 5.3 Arthritis of knee04/27/2017Chronic pain pszbvkqe87/28/2017 Overview (10/01/2021): Last Assessment & Plan: Assessment: lower back pain s/p SCS 02/2018 Monitored by Pain Management ( 04/03/2020) COPD with chronic wtxsgqtfli01/28/2017 Overview (10/01/2021): Last Assessment & Plan: Assessment: Managed with inhalers No supplemental oxygen use RA 04/24/20 1148 SpO2: 97% Stable. Postlaminectomy syndrome of lumbar kdlifr0906/30/2016Hypertrophy of prostate with urinary obstruction and other lower urinary tract symptoms (LUTS)08/12/2010 Ztlysohgknt19/22/2010Frequency of /08/2010ED (erectile dysfunction) of organic pzturl3910/08/2007Malignant neoplasm of skin of lip05/11/2007 Overview (10/01/2021): Last Assessment & Plan: Assessment: s/p removal Urinary vvgwext7907/31/2006Rotator cuff syndrome of shoulder and allied disorders 12/10/2004Spinal stenosis of lumbar rgiaqq8208/13/2004Brachial neuritis or mkmncpdfqyj18/30/2004Displacement of cervical intervertebral disc04/17/2004 Displacement of thoracic intervertebral disc without wqvyiltddd69/19/2004Spinal stenosis of cervical kygxyt9703/06/2004 Encounters DateTypeDepartmentCare BjxqVnghuffscvp54/08/2025 10:00 AM EDTOffice Visit [facility] Department of [place] [address] [employer] [address] [place] [phone] Lyn Lawton MD Parkinson's disease without dyskinesia or fluctuating manifestations (CMS-HCC) (Primary Dx); Dysautonomia orthostatic hypotension syndrome; Psychosis due to Parkinson's disease (CMS-HCC); QT avhgzyqkorgn56/08/5319Agwlwz59/25/2025Refill [facility] [address] [place] [phone] Andrés Bowden MD Spinal stenosis of lumbar region with neurogenic mxrjofadckgu51/19/2025Telephone [facility] Department of [place] [address] [facility] [address] [place] [phone] Eliane Ken New Patientfrom Last 3 Months Immunizations ImmunizationAdministration DatesNext OmzN3Y1 Inj Preservative Free08/24/2009 Hepatitis B1,01/27/2002Influenza High Dose Preservative Free IM 08/24/2019,08/12/2016Influenza, Injectable, Ertwxxpzfksx41/29/2020,07/07/2018 Influenza, Injectable, quadrivalent (PF)07/01/2017,07/23/2015Influenza, Xtodsfomuop81/27/2010Pneumococcal Conjugate 13-Xzwwqy2611/15/2018Pneumococcal Qelkbijzrpbxjg58/26/2370Uasp72/28/2019,10/22/2015Zoster Vaccine Recombinant 01/19/2019 Social History Tobacco UseTypesPacks/DayYears UsedDateSmoking Tobacco: FormerCigarettes Smokeless Tobacco: Never Tobacco Cessation:Counseling Given: Not Answered Alcohol UseStandard Drinks/WeekCommentsNot Currently0 (1 standard drink = 0.6 oz pure alcohol)PHQ-2AnswerDate RecordedTotal Lukmj803408/23/2024hildcareAnswerDate ZgalzzytRuvmgbkfhEhrgqtg40/21/2021mploymentAnswerDate RecordedEmploymentUnknown 11/08/2020Hunger ScreeningAnswerDate RecordedWithin the past 12 months we worried whether our food would run out before we got money to buy more.Never True03/16/2025Within the past 12 months the food we bought just didn't last and we didn't have money to get more.Never True03/16/2025Purpose - LifeAnswerDate RecordedPurpose and direction in ityeFbrwcjg82/21/2021ex and Gender Information ValueDate RecordedSex Assigned at BirthNot on fileLegal TywWxmw9911/08/2020 10:25 AM ESTGender IdentityNot on fileSexual OrientationNot on file Last Filed Vital Signs Vital SignReadingTime TakenCommentsBlood Ntwhsptt19/5710 10:45 AM EDT Xzabl7674 10:45 AM BLSLherwogmumu93.4 ??C (97.6 ??F)03/16/2025 9:27 AM EDTRespiratory Hrlc2502 9:41 AM EDTOxygen Rxfkldwqxb35%03/16/2025 9:27 AM EDTInhaled Oxygen Concentration--Zkdljz366.6 kg (235 lb)07/26/2025 9:41 AM IFJQkhock144.8 cm (5' 10 )07/26/2025 9:41 AM EDTBody Mass Index33.7207/26/2025 9:41 AM EDT Plan of Treatment DateTypeDepartmentCare Team (Latest Contact Info)Fsioblmarze06/25/2025 11:00 AM ESTOffice Visit [facility] Department of [place] [address] [place] [phone] Tony Martin MD [address] [place] [address] [address], [address] [place] [phone] 11/30/2025 11:00 AM ESTOffice Visit [facility] Department of [address], [address] [place] [phone] Lyn Lawton MD [address] [place] [address] [address], [address], [address] [place] [address] Health MaintenanceDue DateLast DoneCommentsDiabetic Ophthalmology Exam1960 Statin Use: Pphsdhqidlkbel1958Statin Use: Ngcbhhnj1958Diabetic Foot Exam1976RSV ( or age 60+ yrs) (1 - Risk 60-74 years 1-dose series) 2018Zoster (Shingles) Vaccine (2 of 2)Fall Risk Ucpmkipec33/25/2023OVID-19 Vaccine ( - 2024- season)512/, 01/09/2021, 12/13/2020Influenza Okxigoj53, 11/10/2023, 09/18/2022, Additional history existsAdult BMI Follow Up Plan08/23/2025 08/23/2024epression Jzisfffvo30dult BMI Rjnyxmuld60/08/2026 07/26/2025Tobacco Udblvrkec54DTaP,Tdap and Td Vaccines (3 - Td or Tdap), 10/22/2015Abdominal Aortic Aneurysm (AAA) Screen Xvdbcwpcv50/11/2024, 12/01/2022, 11/26/2022 Goals GoalPatient Goal TypeAssociated ProblemsRecent ProgressPatient-Stated?Author Discharge home Syklar Chen RN Note: Evaluation of progress towards goal: [...] Status on File) Date ActivatedDate InactivatedComments02/07/2021 1:34 PM5/01/2021 4:48 PM * Full Code Date ActivatedDate InactivatedComments02/03/2021 2:46 PM02/07/2021 1:08 PM Care Teams Team MemberRelationshipSpecialtyStart DateEnd Date Jaden Crabtree DO [address] [place] [address] [facility]01/17/21
--- OUTSIDE RECORDS SUMMARY | 2025-09-01 09:40 | XMS_ITS | Clinical Summary ---
Author Organization [facility] Address [address] [facility], [address] [place] [address] Care Team Providers Care Colored Liquid Plastic Applier Name Role Phone Jaden Crabtree DO Primary Care Provider [phone] Allergies Active AllergyReactionsCriticalityNoted DateCommentsMoxifloxacinHives,Shortness Of ZmioxoWtjb31/07/3976LxfxhfpgeZdjarVbdwvd84/07/2022ErythromycinItching,Nausea And NazochujAes81/07/2022ClonazepamShortness Of JwminmHqrp69/07/2022Levofloxacin Hives,Shortness Of KxswzcAfoy22/07/2022 Medications MedicationSigDispense QuantityRefillsLast FilledStart DateEnd DateStatus [place]-3 Fatty Acids (FISH OIL) 1200 MG CAPS [...] daily01/20/2022ctive SANTYL 250 UNIT/GM ointment daily as rjzdyg6212/07/2021ctive Urea 40 % LOTN Apply topically 2 times daily as neededActive mupirocin (BACTROBAN) 2 % nasal ointment by Nasal route 2 times daily Take by Nasal route 2 times daily.04/17/2022Active Active Problems ProblemNoted DateDiagnosed DateIdiopathic ghuffuqgfsx30/26/2022Lumbar stenosis with neurogenic hfdvdzlhgzhe69/22/2022 Family History Medical HistoryRelationNameCommentsCancerBrotherbrainDementiaFatherHigh Blood PressureFatherEmphysemaMaternal GrandfatherKidney DiseaseMaternal Grandfather DementiaMotherDiabetesMotherHeart DiseaseMotherCHFHigh Blood PressureMother CancerPaternal GrandfatherlungDiabetesPaternal GrandmotherHigh Blood Pressure Paternal GrandmotherStrokeNeg HxRelationNameStatusCommentsBrotherFatherAlive Maternal GrandfatherMotherDeceasedPaternal GrandfatherPaternal Grandmother Social History Tobacco UseTypesPacks/DayYears UsedDateSmoking Tobacco: Every DayCigarettes0.545 Smokeless Tobacco: NeverAlcohol UseStandard Drinks/WeekCommentsNever0 (1 standard drink = 0.6 oz pure alcohol)Sex and Gender InformationValueDate RecordedSex Assigned at BirthNot on fileLegal GncXowl4311/28/2012 4:45 PM EST Gender IdentityNot on fileSexual OrientationNot on file Last Filed Vital Signs Vital SignReadingTime TakenCommentsBlood Lvhnwsnw643/5505 9:29 AM EDT Rpibh363602/18/2022 8:30 AM HLTTodghgfhsom03.6 ??C (97.9 ??F)02/18/2022 8:30 AM EDTRespiratory Isuy9581 8:30 AM EDTOxygen Jxmmgqwwgg60%02/18/2022 8:30 AM EDTInhaled Oxygen Concentration--Iigowg517.9 kg (240 lb)02/09/2022 5:15 AM MFGFixgda783.8 cm (5' 10 )02/07/2022 9:09 AM EDTBody Mass Index34.44002/07/2022 9:09 AM EDT Plan of Treatment Not on file Medical Devices ImplantedTypeAreaManufacturerDevice IdentifierShelf Expiration DateModel / Serial / LotScrew Spinal Streamline 7.5x55mm - [id number] Implanted:Qty: 1 on 02/07/20[facility] Spine LumbarRTI BIOLOGICS-[id number] / / Set Scr Spnl Ti Streamline - [id number] Implanted:Qty: 9 on 02/07/20[facility]: Spine LumbarSURGALIGN SPINE TECHNOLOGIES [id number] / / Screw Spnl L45mm Dia7.5mm Thorlum Ti Ally Polyax Streamline - [id number] Implanted:Qty: 2 on 02/07/2022 [facility]: Spine LumbarSURGALIGN SPINE TECHNOLOGIES [id number] / / Screw Spnl L50mm Dia7.5mm Thorlum Ti Ally Polyax Streamline - [id number] Implanted:Qty: 6 on 02/07/2022 [facility]: Spine LumbarSURGALIGN SPINE TECHNOLOGIES [id number] / / Ta Spnl L120mm Huy40kk Thorlum Prebent Streamline - [id number] Implanted:Qty: 1 on 02/07/2022 [facility]: Spine LumbarSURGAL[employer] SP[employer]CHN[employer] [id number] / / Ta Spnl L100mm [id number] Thorlum Prebent Streamline - [id number] Implanted:Qty: 1 on 02/07/2022 by [facility]: Spine LumbarSURGAL[employer] SPINE [employer]CHN[employer] [id number] / / Additional Health Concerns InfectionOnset DateLast IndicatedMRSA Comment:Thuan 01/23/2022/04/[address] [place] [address] Advance Directives * Full Code (Latest Code Status on File) Date ActivatedDate InactivatedComments02/13/2022 7:01 AM02/18/2022 2:18 PM * Full Code Date ActivatedDate InactivatedComments02/07/2022 8:29 AM02/07/2022 4:12 PM Care Teams Team MemberRelationshipSpecialtyStart DateEnd Date Jaden Crabtree DO [address] [facility] [address] [place] [address] PCP - GeneralFamily Medicine01/23/22
--- OUTSIDE RECORDS SUMMARY | 2025-09-01 09:40 | XMS_ITS | Patient Health Record ---
Author Organization [facility] Address [address] [place] [address] Care Team Providers Care Packer Operator Automatic Name Role Phone PCP, NO Primary Care Provider Kami Das ClaCharlotte housermelly Unavailable [phone] Allergies Allergen (clinical drug ingredient) Drug/Non Drug Allergy documented on EMR Reaction Allergy Type Onset Date Status clonazepam KlonoPIN Unknown Drug Allergy ActiveLevaquinUnknownDrug AllergyActivecelecoxibCeleBREXUnknownDrug Allergy ActiveerythromycinUnknownDrug AllergyActivemoxifloxacinAveloxUnknownDrug Allergy Active Reason For Referral No Information Medications Medication SIG (Take, Route, Frequency, Duration) Notes Start Date End Date Status tamsulosin ActivePrecoseActiveLinzessActiveDocusate SodiumActivetopiramateActive multivitaminActiveTylenolActivecarbidopa-levodopaActivealbuterolActivemidodrine Activepotassium citrateActivemetFORMINActiveDICLOFENAC SODIUMActiveProtonix ActiveLyricaActivesildenafilActiveatorvastatinActiveSymbicortActiveZetiaActive CymbaltaActive Social History Tobacco Use: Social History Observation Description Date Details (start date - stop date) Current Smoker 10/19/1978 - NA Smoking History Question Answer Notes Smoking Status Current Smoker When did you start smoking?10/19/1978How much do you smoke6 - 10How soon after you wake up do you smoke your first cigarette?after 60 min Problems Problem Type SNOMED Code ICD Code Onset Dates Problem Status W/U Status Risk Notes Problem Surgical follow-up ( finding) (587235954) Aftercare following surgery of the musculoskeletal system (Z47.89) ActiveconfirmedProblemCervical radiculopathy (47001847)Radiculopathy, cervical region (M54.12)ActiveconfirmedProblemBowel incontinence (53191040)Bowel incontinence (R15.9)ActiveconfirmedProblemSpinal stenosis of lumbar region (35372966)Spinal stenosis, lumbosacral region (M48.07)ActiveconfirmedProblem Degeneration of lumbosacral intervertebral disc (17549110)Other intervertebral disc degeneration, lumbosacral region (M51.37)ActiveconfirmedProblemRight side sciatica (193117391094317)Sciatica, right side (M54.31)ActiveconfirmedProblem Left side sciatica (557614678298305)Sciatica, left side (M54.32)Activeconfirmed ProblemUrinary incontinence (928149688)Urinary incontinence (R32)Activeconfirmed ProblemDegeneration of cervical intervertebral disc (65907403)Other cervical disc degeneration at C4-C5 level (M50.321)ActiveconfirmedProblemDegeneration of cervical intervertebral disc (06902212)Other cervical disc degeneration at C5-C6 level (M50.322)ActiveconfirmedProblemDegeneration of cervical intervertebral disc (17585929)Other cervical disc degeneration, high cervical region (M50.31) ActiveconfirmedProblemScoliosis of lumbar spine (358016774)Other form of scoliosis of lumbar spine (M41.86)ActiveconfirmedProblemHistory of arthrodesis (166463079)Spinal arthrodesis present (Z98.1)ActiveconfirmedProblemAdult degenerative scoliosis deformity of spine (disorder) (9357387252)Scoliosis due to degenerative disease of spine in adult patient (M41.80)Activeconfirmed Plan Of Treatment No Information Insurance Providers Payer Name Payer Address Payer Phone Subscriber Number Group Number Insured Name Patient Relationship to Insured Coverage Start Date Coverage End Date [facility] [address] [place] [address] [id number] ALISIA CORREA Self - patient is the insured Medical (General) History Medical History History ICD Code High Blood Pressure: YES, Cancer: YES, MouthKidney stones YES,Osteoarthritis YES,Asthma: YES,Bronchitis YES,Anemia: YES,Emphysema YES,Diabetes YES,Anxiety: YES,Depression YES, Gastroesophageal reflux disease YES,Are you a healthcare worker? No,Sleep apnea: YesCPAP Machine: YesDo you use the CPAP machine? YesDrug Allergies: YES,Surgical History Surgery Date(Month/Year) L2-S1 laminectomy, PS[facility] 01/2022 Spinal Cord Stimulator Lumbar decompressionCervical spine eswhpjv3452, 2001Shoulder surgery, leftknee replacement, rightknee replacement, left x 2
[2025-09-01 10:37] LABS: Glucose Urine UA NEGATIVE (NEGATIVE)
== END 2025-09-01 09:33 | disposition home or self-care (01) ==
LOC: LAB 09:32
PROVIDERS: PCP Family Medicine; Visit Provider Nurse Practitioner
DX: L89.313 Pressure ulcer of right buttock, stage 3 (principal); N39.0 Urinary tract infection, site not specified; Z48.00 Encounter for change or removal of nonsurgical wound dressing
CPT/HCPCS: 81003; 87086; 87088; 87186

== ENCOUNTER 2025-10-13 09:37 | Outpatient (REF) | payer MEDICARE, OTHER, SELFPAY ==
--- OUTSIDE RECORDS SUMMARY | 2025-10-05 07:30 | XMS_ITS | Encounter Summary ---
Author Organization [facility] Address [address] [place] [address] Care Team Providers Care Fisher Diving Name Role Phone Michiramirez Jaden Primary Care Provider [phone] Bhupendra Painter MD Unavailable Encounter Details DateTypeDepartmentCare Team (Latest Contact Info)Xipdvaatfiu38/18/2025 7:30 AM ESTAncillary Procedure [facility] [address] [place] [address] Adjustment and management of cardiac pacemaker Social History Tobacco UseTypesPacks/DayYears UsedDateSmoking Tobacco: WgfluuVnrmtbtcoj863.6 01/13/1978 - 08/19/2022mokeless Tobacco: NeverAlcohol UseStandard Drinks/Week CommentsNever0 (1 standard drink = 0.6 oz pure alcohol)[facility] UtilitiesAnswerDate RecordedIn the past 12 months has the [employer], gas, oil, or water [employer] threatened to shut off services in your home?No06/15/2025Overall Financial Resource Strain (CARDIA)AnswerDate RecordedHow hard is it for you to pay for the very basics like food, housing, medical care, and heating?Not hard at all 06/15/2025PHQ-2AnswerDate RecordedPatient Health Questionnaire-2 Score0 09/18/2025Humiliation, Afraid, Rape, and Kick questionnaireAnswerDate Recorded Within the last year, have you been afraid of your partner or ex-partner?No 09/18/2025Emotionally AbusedNot on file09/18/2025Physically AbusedNot on file 09/18/2025Sexually AbusedNot on file09/18/2025TransportationAnswerDate Recorded In the past 12 months, has lack of transportation kept you from medical appointments or from getting medications?No06/15/2025Lack of Transportation (Non-Medical)Not on file06/15/2025Housing Stability Vital SignAnswerDate RecordedIn the last 12 months, was there a time when you were not able to pay the mortgage or rent on time?No06/15/2025Number of Times Moved in the Last Year Not on file06/15/2025t any time in the past 12 months, were you homeless or living in a jail (including now)?No06/15/2025Hunger Vital SignAnswerDate RecordedWithin the past 12 months, you worried that your food would run out before you got the money to buymore.Never true06/15/2025Ran Out of Food in the Last YearNot on file06/15/2025Sex and Gender InformationValueDate RecordedSex Assigned at BirthNot on fileLegal UwyYcvc1604/16/2022 10:07 PM EDTGender Identity Choose not to cbiiaowz75/18/2025 11:10 AM EDTSexual OrientationChoose not to aarozlci17/18/2025 11:10 AM EDTdocumented as of this encounter Plan of Treatment DateTypeDepartmentCare Team (Latest Contact Info)Hmtwwralrua37/02/2026 8:30 AM ESTHospital Encounter [facility] Main Operating Room [address] [place] [address] Roberth Cowan MD [address] [place] [address] 10/20/2025 8:30 AM EST - 10/20/2025 9:00 AM ESTSurgery [facility] Main Operating Room [address] [place] [phone] Roberth Cowan MD [address] [place] [address] EGD (ESOPHAGOGASTRODUODENOSCOPY)NamePriorityAssociated DiagnosesDate/TimeEGD (ESOPHAGOGASTRODUODENOSCOPY) History of gastric bypass 10/20/2025 8:30 AM ESTdocumented as of this encounter Procedures Procedure NamePriorityDate/TimeAssociated DiagnosisCommentsCARDIAC DEVICE CHECK CHECK - CPUCOTWqjvyjc29/23/2025 5:24 PM EST Adjustment and management of cardiac pacemaker documented in this encounter Results * CARDIAC DEVICE CHECK - REMOTE - PACEMAKER (10/10/2025 5:24 PM EST)Specimen (Source)Anatomical Location / LateralityCollection Method / VolumeCollection TimeReceived Time Narrative Authorizing ProviderResult TypeResult StatusPaul Raphael MDCV IMPLANTABLE CARDIAC DEVICE PROCEDURESFinal ResultPerforming OrganizationAddressCity/State/ZIP Code Phone Number CPACS documented in this encounter Visit Diagnoses Diagnosis History of gastric bypass- Primary Adjustment and management of cardiac pacemaker Fitting and adjustment of cardiac pacemaker History of gastric bypass documented in this encounter Care Teams Team MemberRelationshipSpecialtyStart DateEnd Date Jaden Crabtree DO [address] [place] [id number] PCP - GeneralFamily Medicine04/25/25 Bhupendra Painter MD [address] [place] [address] Consulting PhysicianUrology06/22/25documented as of this encounter
--- OUTSIDE RECORDS SUMMARY | 2025-10-13 09:42 | XMS_ITS | Clinical Summary ---
Author Organization [facility] Address [address] [place] [id number] Care Team Providers Care Marketing And Development Coordinator Name Role Phone Leyda Jaden Hyman Primary Care Provider [phone] Allergies Active AllergyReactionsCriticalityNoted DateCommentsMoxifloxacin HclRash,Hives, Itching,Shortness of GwnmjnUqwxhd51/02/2006CelecoxibRash,Hives,GI UpsetHigh 06/04/2017Erythromycin BaseHives,Shortness of WwufuuYnvb49/19/2004Clonazepam SlgimqaPfglki57/17/4652NnazmcvhnegqDchmuVsvixi62/13/2010PimavanserinHives 08/23/2020 Medications MedicationSigDispense QuantityRefillsLast FilledStart DateEnd DateStatus [...] BPH, GERD, T2DM, who was admitted to [facility] on 11/20 from the ED for [...] Events Past 24: Accepted for transfer to [facility], however had episode of bradycardia to30s [...] - Psych consulted, appreciate recs - Continue [employer] Cymbalta, Lyrica, Topamax - Continue Mirtazapine - [...] stage Irritant contact dermatitis due to fecal betttfsxlgjg68/06/2023Wound eschar of foot11/24/2022 Overview (11/24/2022): Right and left toes Pressure injury of left foot, avlftrlugta73/06/2023 Overview (11/24/2022): Lateral foot Severe protein-calorie cidnvzxrcyvj85/03/2023At risk for aizdrxnx10/03/2023 COVID-19 virus poavcanlu17/02/2023Generalized fyprbsmy33/02/9042Fysr10/02/2023 History of fusion of cervical spine1Right foot drop08/29/2020Falls axixvxpkfu53/11/2020Multifactorial gait /11/2020Spinal stenosis of lumbar itdcsp2008/29/2020Orthostatic eizmnahtusf21/11/2020Near qkyhugw2808/29/2020 Spinal stenosis of cervical bpqvue1208/29/2020Osteoarthritis of right hip 05/03/2020Acute cystitis without ylrnyexxz96/10/2020 Assessment & Plan (04/27/2020 12:47 PM EDT): Assessment: per Urine Culture result. Pt. treated per susceptibility report and notified. Pt. reports he has tolerated Bactrim before ( 10/2019) Tobacco use04/24/2020 Assessment & Plan (04/24/2020 12:23 PM EDT): Assessment: 60 pack years Currently 1/2 pack day since 01/2020 Cessation with strategies encouraged. Megaloblastic anemia due to vitamin B12 zqrtukljbe86/13/2020Osteoarthritis of left hip11/08/2019Open wound of left heel11/08/2019PD (Parkinson's disease) 04/13/2019 Assessment & Plan (04/24/2020 12:22 PM EDT): Assessment: Managed with med Monitored by Neurology Stable at baseline per Pt. report Assessment & Plan (10/18/2019 12:32 PM EST): Assessment: Sinemet 4 times a day to use morning of surgery Ixvioausp70/26/2019Psychosis due to Parkinson's jrkzchc2504/13/2019MGUS (monoclonal gammopathy of unknown significance)09/15/2018Spinal cord stimulator szuskz4809/07/2018 Assessment & Plan (04/24/2020 12:25 PM EDT): Assessment: for LBP generator in right hip Aware to bring remote on DOS Assessment & Plan (10/18/2019 12:34 PM EST): Assessment: Spinal cord stimulator in place to bring remote day of surgery Complete tear of right rotator cuff08/02/2018Iron deficiency anemia secondary to inadequate dietary iron uabtrh1106/16/2018Multilevel spine pain06/02/2018Nicotine use disorder, F17. Assessment & Plan (10/18/2019 12:32 PM EST): Assessment: Current Smoker Obesity, Class I, BMI 30-34.9003/17/2018CRPS (complex regional pain syndrome type I)03/16/2018Status post replacement of left shoulder joint02/08/2018Shoulder unxburckl85/13/6986Wvatvv11/19/2018Diabetes jbaqcpbo33/19/2018 Assessment & Plan (10/18/2019 12:33 PM EST): Assessment: stable on oral medication Hemoglobin A1C (%) Date Value 05/18/2018 5.9 06/17/2017 5.3 Essential omttkqygzsgy92/19/2018 Assessment & Plan (04/24/2020 12:15 PM EDT): Assessment: Medication for Control. Date: BP: 04/24/2020 115/80 Stable. Uvnrfgmothkftr00/19/2018 Assessment & Plan (10/18/2019 12:32 PM EST): Assessment: stable on medication Essential lvsvnt1310/27/2017 Assessment & Plan (04/24/2020 12:14 PM EDT): Assessment: right hand Assessment & Plan (10/18/2019 12:32 PM EST): Assessment: tremors in right hand Glenohumeral arthritis, left10/26/2017OA (osteoarthritis) of knee07/01/2017 Primary osteoarthritis of right knee05/20/2017 Overview (05/20/2017): Added automatically from request for surgery [id number] Arthritis of knee04/27/2017Type 2 diabetes mellitus without complication, without long-term current use of tuhsusi5704/15/2017 Assessment & Plan (04/24/2020 12:17 PM EDT): Assessment: Managed with oral med s/p gastric bypass Hemoglobin A1C (%) Date Value 10/18/2019 5.7 Chronic pain uaogfsrn08/28/2017 Assessment & Plan (04/24/2020 12:14 PM EDT): Assessment: lower back pain s/p SCS 02/2018 Monitored by Pain Management ( 04/03/2020) COPD with chronic uiypswxurl08/28/2017 Assessment & Plan (04/24/2020 12:16 PM EDT): Assessment: Managed with inhalers No supplemental oxygen use RA 04/24/20 1148 SpO2: 97% Stable. Assessment & Plan (10/18/2019 12:33 PM EST): Assessment: Symbicort twice a day and Albuterol as needed Primary osteoarthritis of left knee01/28/2017Postlaminectomy jzgclges32/12/2016 Hypertrophy of prostate with urinary obstruction and other lower urinary tract symptoms (LUTS)08/12/20102979Fkwakvvnpje23/22/2010Frequency of ovblcuinc86/08/2010 Slow urinary xzokqn9503/26/2010Impotence of organic vjhhys5310/08/2007Malignant neoplasm of skin of lip05/11/2007 Assessment & Plan (10/18/2019 12:33 PM EST): Assessment: s/p removal Psychosexual dysfunction, qobhutxqzla92/13/2006Rotator cuff syndrome of shoulder and allied zkvoudeqq77/22/2005Spinal stenosis, lumbar region, without neurogenic pgyrqiaiikvg92/26/2004Displacement of cervical intervertebral disc without daljjhfylc83/30/2004Brachial neuritis or radiculitis NOS04/17/2004Spinal stenosis in cervical pknuar2303/06/2004Displacement of thoracic intervertebral disc without tcrqyaqyoa50/19/2004SPRAIN OF NECK ()03/06/2004Unspecified sleep apnea Overview (04/24/2020): Last us 2003, pt was 380 lbs at that time Assessment & Plan (04/24/2020 12:24 PM EDT): Assessment: Uses CPAP at home Resolved Problems ProblemNoted DateDiagnosed DateResolved DateUlcerative hdplmb7812/07/2017 07/21/2019Glenohumeral izjfnyjed00Urgency of urination SPRAIN OF NECK ()Brachial neuritis or hhyfnocrlhx60Carpal tunnel fimjviwc98 Immunizations ImmunizationAdministration DatesNext Duehepatitis B (HepB) vaccine, 3-dose series, age 20+ yr (ENGERIX-B, RECOMBIVAX HB)08/16/2002,01/27/2002influenza (HD- IIV3) vaccine, age 65+ yr, high dose, trivalent, PF (FLUZONE HIGH-DOSE) 08/24/2019,08/12/2016influenza (IIV4) vaccine, age 6 mo - 64 yr, quadrivalent, PF (AFLURIA, FLUARIX, FLULAVAL, FLUZONE)07/01/2017,07/23/2015influenza (IIV4) vaccine, quadrivalent (AFLURIA, FLULAVAL, FLUZONE)07/17/2020,07/07/2018influenza vaccine, unspecified emfbjgbdzxn60/27/2010novel influenza (Y6H4-90) vaccine, PF 08/24/2009pneumococcal conjugate (PCV13) vaccine, 13 valent (PREVNAR 13) 11/15/2018pneumococcal polysaccharide (PPV23) vaccine, 23 valent (PNEUMOVAX 23) 08/13/1995tetanus diphtheria pertussis (Tdap) vaccine, age 7+ yr (ADACEL, BOOSTRIX)11/15/2018,10/22/2015zoster (RZV) vaccine, recombinant (SHINGRIX) 01/19/2019 Family History Medical HistoryRelationCommentsDiabetesMaternal GrandfatherCancerPaternal GrandfatherHypertensionPaternal GrandfatherDiabetesPaternal Grandmother HypertensionPaternal GrandmotherCancerPaternal Uncle6 UNCLES FROM LUNG CA RelationStatusCommentsMaternal GrandfatherPaternal GrandfatherPaternal GrandmotherPaternal Uncle Social History Tobacco UseTypesPacks/DayYears UsedDateSmoking Tobacco: Every DayCigarettes1.5 42.8Started: 12/07/1982Smokeless Tobacco: Never Tobacco Cessation:Ready to Q uit: No; Counseling Given: Yes Comments:currently 8 cigarettes a day Alcohol UseStandard Drinks/WeekCommentsNo0 (1 standard drink = 0.6 oz pure alcohol)Overall Financial Resource Strain (CARDIA)AnswerDate RecordedHow hard is it for you to pay for the very basics like food, housing, medical care, and heating?Not very hard11/25/2022HQ-2AnswerDate RecordedPHQ-2 qsarr45610/25/2020 Hunger Vital SignAnswerDate RecordedWithin the past 12 [...] number is lower riskNot on file09/23/2020Data from: https://www.neighborhoodatlas.medicine.[facility].edu/. Last address used for calculationNot on file09/23/2020Sex and Gender InformationValueDate RecordedSex Assigned at BirthNot on fileLegal FenGjig09/02/2012 9:51 AM ESTGender Identity Not on fileSexual OrientationNot on fileOccupationIndustryJob Start DateJob End DateRetiredNot on fileNot on fileNot on file Last Filed Vital Signs Vital SignReadingTime TakenCommentsBlood Rgabaewd66/59012/06/2022 5:34 AM EST Jyszf3877/18/2023 9:08 AM PALJlewcxjzhxp90.7 ??C (98.1 ??F)12/06/2022 5:34 AM ESTRespiratory Tlpu335812/06/2022 9:08 AM ESTOxygen Rootubxxrv829%12/06/2022 8:58 AM ESTInhaled Oxygen Concentration--Bcmjti06.2 kg (196 lb 10.4 oz)12/01/2022 6:00 AM QSDGdvbut964.8 cm (5' 10 )11/20/2022 12:53 PM ESTBody Mass Index28.22 11/20/2022 12:53 PM EST Plan of Treatment Health MaintenanceDue DateLast DoneCommentsAbdominal Aortic Aneurysm Screening 1958Dilated Retinal Exam1968Urine Albumin:Creatinine Ratio1968 Annual PCP Team Chronic Disease Visit1976Anxiety Ldaafboxg56/25/1976 Depression Gkjakfoeg46/25/1976Hepatitis C Qjbxsrjes02/25/1976CT Colonography 2003Cologuard (FIT-DNA)2003Fecal Occult Blood2003Prostate Cancer Screening Stpwwwybsn20/25/3071Mnxlxniuryitm43/25/2003RSV Vaccine (1 - Risk 50-74 years 1-dose series)2008Diabetic Foot Exam Shingrix Vaccine (2 of 2)/12/20182665JgG7X54/04/2022, 04/24/2020, 10/18/2019, Additional history existsPneumococcal Vaccine: 50+ (3 of 3 - PCV20 or PCV21)4011/15/2018, 08/13/1995LDL Zonbapnmvqa56/11/2024 11/29/2022, 11/20/2022dvance Directive Mdxkkbseph05/01/2025[facility] Annual Wellness Visit5Covid-19 Vaccine ( - season)2025 11/06/2021, 10/15/2021, 01/30/2021, Additional history existsInfluenza Vaccine (#1)/10/2021, 09/02/2022, 10/15/2021, Additional history exists Lgndmzihivr40, 08/11/2016Colorectal Cancer Vosndpbhw33/24/2026 DTaP,Tdap,Td Vaccine (3 - Td or Tdap), 10/22/2015 Medical Devices ImplantedTypeAreaManufacturerDevice IdentifierShelf Expiration DateModel / Serial / LotRestrictor 24mm Medium [place] Cement Revision Plug Hip - [id number] [facility]:Q[facility] / PuttyLeft: Bone - KneeSTRY-HOWM VCTDRIUWWEP28/10/[id number] / / [id number] Simplex P Tobramycin Bone Full Dose Radiopaque Preblend Sterile - [id number] Implanted:Qty: 5 on 04/27/2017 at [facility] / PuttyLeft: Bone - KneeSTRY-[facility] EYQSZJFFMML52/10/[id number] / / [id number] 30mm Large [place] Cement Revision Plug Hip - [id number] Implanted:Qty: 1 on 04/27/2017 at [facility] / PuttyLeft: Bone - KneeSTRY-[facility] XDFBKXSVKGQ35//[id number] / / [id number] Simplex P Speedset Bone Radiopaque Sterile - [id number] Implanted:Qty: 1 [facility]29/2017 [facility] PuttyLeft: Bone - ShoulderSTRY-[facility] IZRNNDANEUB25/30/[id number] / / [id number]-Wn-W-Putr Implant - [id number] Implanted:Qty: 1 [facility]05/[facility]: IzctMHOZR51/31/2019 [id number] / / [id number]:NEVRO JAZLYN. N300 LEAD ANCHOR KITHead Global Unite 52mm Standard 18mm Humeral - [id number] Implanted:Qty: 1 on 12/29/2017 [facility]Left: Bone - ShoulderJ&J DEPUY WRPGYRCBSFY84/31/[id number] / / [id number] Civil Service Worker Kit Implanted:Qty: 1 [facility]/16/2018 [facility]plantN/A: BackOTHER 05/14/20207522RRXP2987-60H / / [id number] V40 28mm -2.7mm Offset Taper Biolox Delta Femoral Hip - [id number] Implanted:11/08/2019 at [facility] (Quantity not on file)Joint - HipLeft: [facility]SF[facility] RFCTILIFDKY04/11/[id number] / / [id number] 46mm F Cocr Acetabular Modular Dual Mobility Primary Hip - [id number] Implanted:11/08/2019 at [facility] (Quantity not on file)Joint - HipLeft: Bone - HipSTRYWE[facility]WO[facility] OVOIBRPAHHF46/11/[id number] / / [id number] Adm Mobile Bearing Hip Hindu 52mm 28mm 0d X3 8.9mm Acetabular - [id number] Implanted:11/08/2019 at [facility] (Quantity not on file)Joint - HipLeft: [facility] - [facility]SF[facility] BWNMAHYAQUL27/11/[id number] / / [id number] Adm Mobile Bearing Hip Hindu 52mm 28mm 0d X3 8.9mm Acetabular - [id number] Implanted:05/03/2020 at [facility] (Quantity not on file)Joint - HipRight: [facility] CEXQWJFNSDL85/24/[id number] / / [id number] V40 28mm +4mm Offset Taper Biolox Delta Femoral Hip - [id number] Implanted:05/03/2020 at [facility] (Quantity not on file)Joint - HipRight: [facility] FOTEBTXLAVO27/14/[id number] / / [id number] 46mm F Cocr Acetabular Modular Dual Mobility Primary Hip - [id number] Implanted:05/03/2020 at [facility] (Quantity not on file)Joint - HipRight: [facility]SF[facility] MLHWSKSVDUS15/04/29282836702M / / [id number] Triathlon 12mm Cocr 100mm Femoral Cemented Total Stabilized Knee - [id number] Implanted:Qty: 1 on 04/27/2017 at [facility] KneeLeft: Bone - Knee STRY-[facility] CNIWBVQDLDP7078J503 / / [id number] Triathlon 15mm Cocr 50mm Femoral Cemented Total Stabilize Knee - [id number] Implanted:Qty: 1 on 04/27/2017 at [facility] KneeLeft: Bone - Knee [facility]WE[facility] PWHURFFOZFM95/22/79066928O028 / / [id number] Triathlon 7 Cocr Femoral Total Stabilize Knee Left - [id number] Implanted:Qty: 1 on 04/27/2017 at [facility] KneeLeft: Bone - Knee [facility] IFORWMNDGSI23/17/[id number] / / [id number] Triathlon 7 5mm Femoral Total Stabilize Knee Posterior - [id number] Implanted:Qty: 1 on 04/27/2017 at [facility] KneeLeft: Bone - Knee STRY-HOW MUJYUWPPPLD23/06/90020780F579 / / [id number] Triathlon 7 5mm Femoral Total Stabilize Knee Left - [id number] Implanted:Qty: 1 on 04/27/2017 at [facility] KneeLeft: Bone - Knee STRY-HOW VTLEGSSTQDR74/28/[id number] / / VDHUAugment Triathlon 7 5mm Femoral Total Stabilize Knee Left - [id number] Implanted:Qty: 1 on 04/27/2017 at [facility] KneeLeft: Bone - Knee STRY-HOW ZQQRQIQEHWY34/01/[id number] / / MYMMAugment Triathlon 6 10mm Tibial Total Stabilize Right Medial Left Lateral - [id number] Implanted:Qty: 1 on 04/27/2017 at [facility] KneeLeft: Bone - Knee STRY-HOW FNPYYJGJYMP75/01/34941101L741 / / [id number] Triathlon 6 [place] Cocr Tibial Total Stabilize Cemented Knee - [id number] Implanted:Qty: 1 on 04/27/2017 at [facility] KneeLeft: Bone - Knee STRY-HOW UOPMHDQVEAA29/24/61733299W263 / / [id number] Triathlon 6 10mm Tibial Total Stabilize Left Medial Right Lateral - [id number] Implanted:Qty: 1 on 04/27/2017 at [facility] KneeLeft: Bone - Knee STRY-HOW VIPZJJUFZUK73/20/76379174W775 / / [id number] Triathlon 6 X3 16mm Tibial Total Stabilize Plus Knee - [id number] Implanted:Qty: 1 on 04/27/2017 at [facility] KneeLeft: Bone - Knee STRY-HOW BBLYKOYNPCO82/02/76216004R706 / / [id number] Triathlon 7 Pa Femoral Cruciate Retain Bead Knee Right - [id number] Implanted:Qty: 1 on 07/01/2017 at [facility] KneeRight: Bone - KneeSTRY-HOW YQWXARPFZWY33/10/20102958V767 / / [id number] Triathlon 6 X3 13mm Tibial Condylar Stabilized Knee - [id number] Implanted:Qty: 1 on 07/01/2017 at [facility] KneeRight: Bone - [facility]SF[facility] ONSODBMOYPS91/12/44969567D418 / / [id number] Triathlon 6 Tritanium 18f94ck Tibial 4 Cruciform Peg Keel Knee - [id number] Implanted:Qty: 1 on 07/01/2017 at [facility] INKTFUYOAJU59/22/[id number]-I-689 / / [id number] Tritanium 35mm Metal 10mm Patellar Asymmetric Knee - [id number] Implanted:Qty: 1 on 07/01/2017 at [facility]: Bone - [facility] TFXFJMKIHBX09/08/46196549-W-957 / / [id number] Triathlon 35mm 10mm Patellar Asymmetric Knee - [id number] Implanted:Qty: 1 on 04/27/2017 at [facility] PatellaLeft: Bone - [facility]SF[facility] YDJYASDENLK99/07/28537080L221 / / [id number] 48mm 7mm Humeral Whiting Peg Left Glenoid - [id number] Implanted:Qty: 1 on 12/29/2017 at [facility] - ShoulderLeft: Bone - ShoulderJ&J DEPUY CBGARVEMDYO82/31/1406687039685 / / [id number] Global Ap 12mm Porocoat 137mm Humeral Arthroplasty System Shoulder - [id number] Implanted:Qty: 1 on 12/29/2017 at [facility] - ShoulderLeft: Bone - ShoulderJ&J DEPUY PTKNBFOGGTS24/31/[id number] / / [id number] Global Ap 135d Taper Fix Shoulder Arthroplasty System - [id number] Implanted:Qty: 1 on 12/29/2017 at [facility] - ShoulderLeft: Bone - ShoulderJ&J DEPUY LUQOHSIHWAD06/31/[id number] / / [id number] Triath Tib Cone Sz A - [id number] Implanted:Qty: 1 on 04/27/2017 [facility]Left: Bone - KneeSTRY- HOW ZCMQMUKLATA03/10/39780030-P-502 / / [id number] Accolade Ii 7 127d Femoral - [id number] Implanted:11/08/2019 at [facility] (Quantity not on file)JointLeft: Bone - HipSTRY-HOW GYRWDZXTEHS38/12/75748177-1794 / / [id number] Trident Ii 56mm F Tritanium Acetabular 5 Screw Hole Cluster Sterile - [id number] Implanted:11/08/2019 at [facility] (Quantity not on file)JointLeft: Bone - HipSTRY-[facility] TPFFQMIUXGW00/12/2894292-78-64F / / [id number] Accolade Ii 7 127d Femoral - [id number] Implanted:05/03/2020 at [facility] (Quantity not on file)JointRight: Bone - HipSTRY-HOW JKFCWQNSGFZ24/15/73495759-8647 / / [id number] Trident Ii 56mm F Tritanium Acetabular 5 Screw Hole Cluster Sterile - [id number] Implanted:05/03/2020 at [facility] (Quantity not on file)JointRight: Bone - HipSTRY-[facility] WEZOZWPMIPS13/02/3317475-53-39C / / [id number] 50cm Nevro - [id number] Implanted:Qty: 2 on 05/08/2016 at [facility]/01/07/20198604IRPO7285-91R / / [id number]:50Lead 50cm Nevro - [id number] [facility]ed:Qty: [facility] DiorEIGGB33/30/2019 ANHK1882-48U / / [id number]:NEVRO BLUE PERC LEAD KITLead 50cm Nevro - [id number] Implanted:Qty: 1 on [facility]/05/2016 [facility]Right: PuikYJBWJ55/30/2019 PYER3428-66N / / [id number]:NEVRO BLUE PERC LEAD KITGnrtr [facility] Kit Nevro - [id number] Implanted:Qty: 1 on 06/05/2016 at [facility] JAZLYN FHCNeurostimulatorN/A: BackOTHER 02/15/20187189BLTK5823 / [id number] / [id number]:PEDRO LESTER KIT Procedures Procedure NamePriorityDate/TimeAssociated DiagnosisCommentsLIPID-LIPO PANEL 1 STAT Add-on11/29/2022 2:31 AM EST HEMOGLOBIN T5CBvkdtsb32/07/2020 1:03 PM EDT Acute cystitis with hematuria Thin blood (HCC) 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) COLONOSCOPY - VRDQUCVFLVEhtvkjz28/24/2016 10:20 AM EDT Screening for colon cancer from Last 3 Months or Most Recently Relevant to Health Maintenance Results * (ABNORMAL) LIPID PANEL, NONFASTING (11/29/2022 2:31 AM EST)ComponentValueRef RangeTest MethodAnalysis TimePerformed AtPathologist SignatureTotal Cholesterol, Ooeimdomzf72<200 mg/dL11/29/2022 10:30 PM [facility] LABComment: <200 mg/dL, Desirable 200-239 mg/dL, Borderline high >239 mg/dL, High Triglycerides, Hoefadlliy447<150 mg/dL11/29/2022 10:30 PM [facility] LABComment: <150 mg/dL, Normal 150-199 mg/dL, Borderline high 200-499 mg/dL, High >499 mg/dL, Very high HDL Cholesterol, Cuddfxdcqf14(L)>39 mg/dL11/29/2022 10:30 PM [facility] LABComment: 40-59 mg/dL, Acceptable >59 mg/dL, High: Negative risk factor for coronary heart disease <40 mg/dL, Low: Positive risk factor for coronary heart disease LDL Cholesterol Calculated, Ppkjbykruh34<100 mg/dL11/29/2022 10:[address] [facility] LABComment: <100 mg/dL, Optimal 100-129 mg/dL, Near optimal/above optimal 130-159 mg/dL, Borderline high 160-189 mg/dL, High >189 mg/dL, Very high Secondary prevention optimal LDL Cholesterol levels are recommended to be < 70 mg/dL Non HDL Cholesterol, Yeslvslbvp04<130 mg/dL11/29/2022 10:30 PM [facility] LABComment: <130 mg/dL, Optimal 130-159 mg/dL, Near optimal/above optimal 160-189 mg/dL, Borderline high 190-219 mg/dL, High >219 mg/dL, Very high Secondary prevention optimal non HDL Cholesterol levels are recommended to be <100 mg/dL VLDL Cholesterol, Uihrmbhvfn63<30 mg/dL11/29/2022 10:30 PM [facility] LABTotal Chol/HDL Ratio, Nonfasting5.27(H)<5.10 mg/dL11/29/2022 10:30 PM [facility] LABLDL/HDL Ratio, Nonfasting2.73(H) <2.54 mg/dL11/29/2022 10:30 PM [facility] LABComment: Reference: 1. National Cholesterol Education Program ATP III Guideline At-A-Glance Quick Desk Reference: National Heart, Lung, and Blood [place]. National Institutes of Health. 2001: NIH Publication [...] Pablo Harris MDLABORATORYFinal ResultPerforming OrganizationAddressCity/State/ZIP CodePhone Number [facility] [address] [place] [address], * HGB A1C (04/24/2020 1:03 PM EDT)ComponentValueRef RangeTest MethodAnalysis TimePerformed AtPathologist SignatureHemoglobin A1C5.64.3 - 5.6 %04/24/2020 1:36 PM [facility]TSChar[facility])Estimated Average Eomjtyo873ri/dL 04/24/2020 1:36 PM EDTSCharron [facility] ([facility])Comment: eAG: (Estimated average glucose) is a calculated value from HgbA1c and is retail wireless sales representative of the average blood glucose level in the last 2-3 month period. Specimen (Source)Anatomical Location / LateralityCollection Method / Volume Collection TimeReceived TimeBlood specimen (specimen)WHOLE BLOOD SPECIMEN / Iovfuce1004/24/2020 1:03 PM EDT04/24/2020 1:05 PM EDT Narrative Authorizing ProviderResult TypeResult StatusJoseph Rayray Guevara Jr., MDLABORATORY Final ResultPerforming OrganizationAddressCity/State/[facility] CodePhone Number [facility] [address] [place] [address] [facility] [address] [facility]. [facility], [address] * COLONOSCOPY - DIAGNOSTIC (08/11/2016 10:20 AM EDT)ComponentValueRef RangeTest MethodAnalysis TimePerformed AtPathologist CgkyfarzxQkclljxoeqkudD84 Gastrointestinal Endoscopy Patient Name: Jamarcus García Procedure [...] Most Recently Relevant to Health Maintenance Insurance [facility] Address: [address] [place] [address] Advance Directives * DNR-CC (Latest Code Status on File) Date ActivatedDate InactivatedComments12/03/2022 3:20 PM2 7:51 PMQuestion AnswerCommentsDNR Order Discussed With:* Patient * DNR-CCA Date ActivatedDate InactivatedComments12/01/2022 2:02 PM2 3:20 PMQuestion AnswerCommentsDNR Order Discussed With:* Patient * Full Code Date ActivatedDate InactivatedComments11/20/2022 6:26 PM2 2:01 PMQuestion AnswerCommentsFull Code Order Discussed With:* Patient Care Teams Team MemberRelationshipSpecialtyStart DateEnd Date Jaden Crabtree [address] [place] [phone] [facility] - General06/10/02
--- OUTSIDE RECORDS SUMMARY | 2025-10-13 09:42 | XMS_ITS | Encounter Summary ---
Author Organization [facility] Address [address] [place] [address] Care Team Providers Care Cable Splicer Apprentice Name Role Phone MichiJaden guzmán Primary Care Provider [phone] Bhupendra Painter MD Unavailable Encounter Details DateTypeDepartmentCare Team (Latest Contact Info)Cesbbosmjkv39/26/2025Telephone [facility] Surgery Clinic [address] [place] [phone] Corinna Price MA Social History Tobacco UseTypesPacks/DayYears UsedDateSmoking Tobacco: EfqbloDcffvvwdvn718.6 01/13/1978 - 08/19/2022mokeless Tobacco: NeverAlcohol UseStandard Drinks/Week CommentsNever0 (1 standard drink = 0.6 oz pure alcohol)[facility] UtilitiesAnswerDate RecordedIn the past 12 months has the [place], gas, oil, or water [employer] threatened to shut off services in your [...] homeless or living in a intermediate (including now)?No06/15/2025Hunger Vital SignAnswerDate RecordedWithin the past 12 months, you worried that your food would run out before you got the money to buymore.Never true06/15/2025Ran Out of Food in the Last YearNot on file06/15/2025Sex and Gender InformationValueDate RecordedSex Assigned at BirthNot on fileLegal VdqFtpb9904/16/2022 10:07 PM EDTGender Identity Choose not to rfvetpxb90/18/2025 11:10 AM EDTSexual OrientationChoose not to /18/2025 11:10 AM EDTdocumented as of this encounter Miscellaneous Notes * Telephone Encounter - Santa Bean MA - 10/13/2025 9:35 AM EST Lmom for patient spouse to return call * Telephone Encounter - Corinna Price MA - 10/13/2025 8:51 AM EST Patients called in stating that patient is fighting an infection that requires IV antibiotics and would like to push back his surgery on 10/20/25. Please advise. documented in this encounter Plan of Treatment DateTypeDepartmentCare Team (Latest Contact Info)Fxvuaxdtvlh29/02/2026 8:30 AM ESTHospital Encounter [facility] Main Operating Room [address] [place] [phone] Roberth Cowan MD [address] [place] [address] 10/20/2025 8:30 AM EST - 10/20/2025 9:00 AM ESTSurgery [facility] Main Operating Room [address] [place] [phone] Roberth Cowan MD [address] [place] [address] EGD (ESOPHAGOGASTRODUODENOSCOPY)NamePriorityAssociated DiagnosesDate/TimeEGD (ESOPHAGOGASTRODUODENOSCOPY) History of gastric bypass 10/20/2025 8:30 AM ESTdocumented as of this encounter Visit Diagnoses Not on filedocumented in this encounter Care Teams Team MemberRelationshipSpecialtyStart DateEnd Date Jaden Crabtree DO [address] [place] [phone] PCP - GeneralFamily Medicine04/25/25 Bhupendra Painter MD [facility] [place] [phone] Consulting PhysicianUrology06/22/25documented as of this encounter
--- OUTSIDE RECORDS SUMMARY | 2025-10-13 09:42 | XMS_ITS ---
Author Organization [facility] Address [address] [place] [address] Care Team Providers Care Contact Lens Technician Name Role Phone Jaden Crabtree Primary Care Provider [phone] Active Problems Patient Care Coordination No te [...] GERD, T2DM, who was admitted to [facility] on 11/20 from the ED [...] Past 24: Accepted for transfer to [facility], however had episode of bradycardia to30s [...] - Psych consulted, appreciate recs - Continue BROADCAST PROGRAM DIRECTOR Cymbalta, Lyrica, Topamax - Continue Mirtazapine - [...] stage Irritant contact dermatitis due to fecal fnquzryhtnjh95/06/2023Wound eschar of foot11/24/2022 Overview (11/24/2022): Right and left toes Pressure injury of left foot, lhanccvdglt14/06/2023 Overview (11/24/2022): Lateral foot Severe protein-calorie izsgfsodirwv41/03/2023At risk for lsjptgaw44/03/2023 COVID-19 virus oqozzwfhe59/02/2023Generalized cndobgqb28/02/7371Lwjm29/02/2023 History of fusion of cervical spine1Right foot drop08/29/2020Falls ehfyshgvap02/11/2020Multifactorial gait gumfrndc36/11/2020Spinal stenosis of lumbar ewruhc2208/29/2020Orthostatic yhvvtyipizn04/11/2020Near zuqwocc5508/29/2020 Spinal stenosis of cervical lvnzol4008/29/2020Osteoarthritis of right hip 05/03/2020Acute cystitis without ceevzsxth83/10/2020 Assessment & Plan (04/27/2020 12:47 PM EDT): Assessment: per Urine Culture result. Pt. treated per susceptibility report and notified. Pt. reports he has tolerated Bactrim before ( 10/2019) Tobacco use04/24/2020 Assessment & Plan (04/24/2020 12:23 PM EDT): Assessment: 60 pack years Currently 1/2 pack day since 01/2020 Cessation with strategies encouraged. Megaloblastic anemia due to vitamin B12 mjijnqxikz95/13/2020Osteoarthritis of left hip11/08/2019Open wound of left heel11/08/2019PD (Parkinson's disease) 04/13/2019 Assessment & Plan (04/24/2020 12:22 PM EDT): Assessment: Managed with med Monitored by Neurology Stable at baseline per Pt. report Assessment & Plan (10/18/2019 12:32 PM EST): Assessment: Sinemet 4 times a day to use morning of surgery Tmxkqjira30/26/2019Psychosis due to Parkinson's jbpbajk2604/13/2019MGUS (monoclonal gammopathy of unknown significance)09/15/2018Spinal cord stimulator pctvzc1909/07/2018 Assessment & Plan (04/24/2020 12:25 PM EDT): Assessment: for LBP generator in right hip Aware to bring remote on DOS Assessment & Plan (10/18/2019 12:34 PM EST): Assessment: Spinal cord stimulator in place to bring remote day of surgery Complete tear of right rotator cuff08/02/2018Iron deficiency anemia secondary to inadequate dietary iron dkqllr7806/16/2018Multilevel spine pain06/02/2018Nicotine use disorder, F17. Assessment & Plan (10/18/2019 12:32 PM EST): Assessment: Current Smoker Obesity, Class I, BMI 30-34.9003/17/2018CRPS (complex regional pain syndrome type I)03/16/2018Status post replacement of left shoulder joint02/08/2018Shoulder pijgfyrhw48/13/4542Lkyfsu67/19/2018Diabetes oykmmjlt16/19/2018 Assessment & Plan (10/18/2019 12:33 PM EST): Assessment: stable on oral medication Hemoglobin A1C (%) Date Value 05/18/2018 5.9 06/17/2017 5.3 Essential fcdohmrgecnu23/19/2018 Assessment & Plan (04/24/2020 12:15 PM EDT): Assessment: Medication for Control. Date: BP: 04/24/2020 115/80 Stable. Cvnesetnwlmwth26/ Assessment & Plan (10/18/2019 12:32 PM EST): Assessment: stable on medication Essential gypadv1410/27/2017 Assessment & Plan (04/24/2020 12:14 PM EDT): Assessment: right hand Assessment & Plan (10/18/2019 12:32 PM EST): Assessment: tremors in right hand Glenohumeral arthritis, left10/26/2017OA (osteoarthritis) of knee07/01/2017 Primary osteoarthritis of right knee05/20/2017 Overview (05/20/2017): Added automatically from request for surgery [id number] Arthritis of knee04/27/2017Type 2 diabetes mellitus without complication, without long-term current use of lhtxpap6104/15/2017 Assessment & Plan (04/24/2020 12:17 PM EDT): Assessment: Managed with oral med s/p gastric bypass Hemoglobin A1C (%) Date Value 10/18/2019 5.7 Chronic pain /28/2017 Assessment & Plan (04/24/2020 12:14 PM EDT): Assessment: lower back pain s/p SCS 02/2018 Monitored by Pain Management ( 04/03/2020) COPD with chronic rsrzqwwdxa26/28/2017 Assessment & Plan (04/24/2020 12:16 PM EDT): Assessment: Managed with inhalers No supplemental oxygen use RA 04/24/20 1148 SpO2: 97% Stable. Assessment & Plan (10/18/2019 12:33 PM EST): Assessment: Symbicort twice a day and Albuterol as needed Primary osteoarthritis of left knee01/28/2017Postlaminectomy zwcrpipm97/12/2016 Hypertrophy of prostate with urinary obstruction and other lower urinary tract symptoms (LUTS)08/12/20106975Qmvpvykwnmy51/22/2010Frequency of npzhbjqvo21/08/2010 Slow urinary hnfmhn0503/26/2010Impotence of organic wrtcwe5810/08/2007Malignant neoplasm of skin of lip05/11/2007 Assessment & Plan (10/18/2019 12:33 PM EST): Assessment: s/p removal Psychosexual dysfunction, yypskdpunel42/13/2006Rotator cuff syndrome of shoulder and allied amvkklitg31/22/2005Spinal stenosis, lumbar region, without neurogenic uaemtihxjvfe39/26/2004Displacement of cervical intervertebral disc without aphcqejhur34/30/2004Brachial neuritis or radiculitis NOS04/17/2004Spinal stenosis in cervical qspvbi9903/06/2004Displacement of thoracic intervertebral disc without ysdzngjdpo96/19/2004SPRAIN OF NECK ()03/06/2004Unspecified sleep apnea Overview (04/24/2020): Last us 2003, pt was 380 lbs at that time Assessment & Plan (04/24/2020 12:24 PM EDT): Assessment: Uses CPAP at home Current Treatment and Therapy Plans No current plan information found. Past Treatment and Therapy Plans Resolved Problems ProblemNoted DateDiagnosed DateResolved DateUlcerative oblyqp8912/07/2017 07/21/2019Glenohumeral nmuwunryg93Urgency of urination SPRAIN OF NECK ()Brachial neuritis or snjhidirkwk18Carpal tunnel qiojziyf81
--- OUTSIDE RECORDS SUMMARY | 2025-10-13 09:42 | XMS_ITS | Clinical Summary ---
Author Organization [facility] Address [address], [address] [place] [address] Care Team Providers Care Dermatology Nurse Practitioner Name Role Phone Jaden Crabtree DO Primary Care Provider [phone] Allergies Active AllergyReactionsCriticalityNoted DateCommentsMoxifloxacinHives,Shortness Of VcwssyAqce29/07/5207AomfohsbjAzlzfJmuvmv98/07/2022ErythromycinItching,Nausea And AluxvvqtKfy74/07/2022ClonazepamShortness Of IjiirmFxkg27/07/2022Levofloxacin Hives,Shortness Of QbxsduOyrq88/07/2022 Medications MedicationSigDispense QuantityRefillsLast FilledStart DateEnd DateStatus [place]-3 Fatty Acids (FISH OIL) 1200 MG CAPS [...] daily01/20/2022ctive SANTYL 250 UNIT/GM ointment daily as usvtdk4212/07/2021ctive Urea 40 % LOTN Apply topically 2 times daily as neededActive mupirocin (BACTROBAN) 2 % nasal ointment by Nasal route 2 times daily Take by Nasal route 2 times daily.04/17/2022Active Active Problems ProblemNoted DateDiagnosed DateIdiopathic dctgczxrxvo20/26/2022Lumbar stenosis with neurogenic tflafwtgcspq95/22/2022 Family History Medical HistoryRelationNameCommentsCancerBrotherbrainDementiaFatherHigh Blood PressureFatherEmphysemaMaternal GrandfatherKidney DiseaseMaternal Grandfather DementiaMotherDiabetesMotherHeart DiseaseMotherCHFHigh Blood PressureMother CancerPaternal GrandfatherlungDiabetesPaternal GrandmotherHigh Blood Pressure Paternal GrandmotherStrokeNeg HxRelationNameStatusCommentsBrotherFatherAlive Maternal GrandfatherMotherDeceasedPaternal GrandfatherPaternal Grandmother Social History Tobacco UseTypesPacks/DayYears UsedDateSmoking Tobacco: Every DayCigarettes0.545 Smokeless Tobacco: NeverAlcohol UseStandard Drinks/WeekCommentsNever0 (1 standard drink = 0.6 oz pure alcohol)Sex and Gender InformationValueDate RecordedSex Assigned at BirthNot on fileLegal GbdTagt1711/28/2012 4:45 PM EST Gender IdentityNot on fileSexual OrientationNot on file Last Filed Vital Signs Vital SignReadingTime TakenCommentsBlood Uzqelhfc466/5505 9:29 AM EDT Klxzc483002/18/2022 8:30 AM SPRNrxailbaaah46.6 ??C (97.9 ??F)02/18/2022 8:30 AM EDTRespiratory Vhmm8172 8:30 AM EDTOxygen Jgjqklovfx99%02/18/2022 8:30 AM EDTInhaled Oxygen Concentration--Xcqcjf510.9 kg (240 lb)02/09/2022 5:15 AM EHZTxugsg593.8 cm (5' 10 )02/07/2022 9:09 AM EDTBody Mass Index34.44002/07/2022 9:09 AM EDT Plan of Treatment Not on file Medical Devices ImplantedTypeAreaManufacturerDevice IdentifierShelf Expiration DateModel / Serial / LotScrew Spinal Streamline 7.5x55mm - [id number] Implanted:Qty: 1 on 02/07/2022 [facility]: Spine LumbarRTI BIOLOG[employer]-[id number] / / Set Scr Spnl Ti Streamline - [id number] Implanted:Qty: 9 on 02/07/20[facility]: Spine LumbarSURGALIGN SPINE TECHNOLOGIES [id number] / / Screw Spnl L45mm Dia7.5mm Thorlum Ti Ally Polyax Streamline - [id number] Implanted:Qty: 2 on 02/07/2022 [facility]: Spine LumbarSURGAL[employer] SPINE TECHN[employer] [id number] / / Screw Spnl L50mm Dia7.5mm Thorlum Ti Ally Polyax Streamline - [id number] Implanted:Qty: 6 on 02/07/2022 [facility]: Spine LumbarSURGAL[employer]CHN[employer] [id number] / / Ta Spnl L120mm [id number] Thorlum Prebent Streamline - [id number] Implanted:Qty: 1 on 02/07/2022 by [facility]: Spine LumbarSURGAL[employer]INE [employer]CHN[employer] [id number] / / Ta Spnl L100mm [id number] Thorlum Prebent Streamline - [id number] Implanted:Qty: 1 on 02/07/2022 by [facility]: Spine LumbarSURGAL[employer]CHN[employer] [id number] / / Additional Health Concerns InfectionOnset DateLast IndicatedMRSA Comment:Thuan 01/23/2022/04/[address] [place] [address] Advance Directives * Full Code (Latest Code Status on File) Date ActivatedDate InactivatedComments02/13/2022 7:01 AM02/18/2022 2:18 PM * Full Code Date ActivatedDate InactivatedComments02/07/2022 8:29 AM02/07/2022 4:12 PM Care Teams Team MemberRelationshipSpecialtyStart DateEnd Date Jaden Crabtree DO [address] [facility] [address] [place] [address] PCP - GeneralFamily Medicine01/23/22
--- OUTSIDE RECORDS SUMMARY | 2025-10-13 09:42 | XMS_ITS | Patient Health Record ---
Author Organization [facility] Address [address] [place] [address] Care Team Providers Care Valve Machine Operator Name Role Phone PCP, NO Primary Care Provider Kami Das ClaCharlotte housermelly Unavailable [phone] Allergies Allergen (clinical drug ingredient) Drug/Non Drug [...] Problem Status W/U Status Risk Notes Problem Adult degenerative s coliosis deformity of spine (disorder) (7024810290) Scoliosis due to degenerative disease of spine in adult patient (M41.80) ActiveconfirmedProblemHistory of arthrodesis (874254774)Spinal arthrodesis present (Z98.1)ActiveconfirmedProblemScoliosis of lumbar spine (876343042)Other form of scoliosis of lumbar spine (M41.86)ActiveconfirmedProblemDegeneration of cervical intervertebral disc (93104504)Other cervical disc degeneration, high cervical region (M50.31)ActiveconfirmedProblemDegeneration of cervical intervertebral disc (70645511)Other cervical disc degeneration at C5-C6 level (M50.322)ActiveconfirmedProblemDegeneration of cervical intervertebral disc (17367390)Other cervical disc degeneration at C4-C5 level (M50.321)Active confirmedProblemUrinary incontinence (720042924)Urinary incontinence (R32)Active confirmedProblemLeft side sciatica (855817214479441)Sciatica, left side (M54.32) ActiveconfirmedProblemRight side sciatica (260718936926912)Sciatica, right side (M54.31)ActiveconfirmedProblemDegeneration of lumbosacral intervertebral disc (73486533)Other intervertebral disc degeneration, lumbosacral region (M51.37) ActiveconfirmedProblemBowel incontinence (85187341)Bowel incontinence (R15.9) ActiveconfirmedProblemCervical radiculopathy (18883050)Radiculopathy, cervical region (M54.12)ActiveconfirmedProblemSurgical follow-up (finding) (272686560) Aftercare following surgery of the musculoskeletal system (Z47.89)Active confirmedProblemSpinal stenosis of lumbar region (73814381)Spinal stenosis, lumbosacral region (M48.07)Activeconfirmed Plan Of Treatment No Information Insurance Providers Payer Name Payer Address Payer Phone Subscriber Number Group Number Insured Name Patient Relationship to Insured Coverage Start Date Coverage End Date [facility] [address] [place] [address] [id number] ALISIA CORREA Self - patient is the [...] 01/2022 Spinal Cord Stimulator Lumbar decompressionCervical spine qgbgghy5144, 2002Shoulder surgery, leftknee replacement, rightknee replacement, left x 2
--- OUTSIDE RECORDS SUMMARY | 2025-10-13 09:42 | XMS_ITS | Encounter Summary ---
Author Organization [facility] tem Address [id number] [address] [place] [address] Care Team Providers Care Business Process Consultant Name Role Phone Jaden Crabtree DO Primary Care Provider [phone] Reason for Visit * ReasonCommentsMed Refill Encounter Details DateTypeDepartmentCare Team (Latest Contact Info)Yxwhqzeufpe68/19/2025Refill [facility] [address] [place] [phone] Andrés Bowden MD [address] [place] [address], [facility] [address] [place], [place] [phone] Parkinson's disease ([facility]) Social History Tobacco UseTypesPacks/DayYears UsedDateSmoking Tobacco: FormerCigarettes Smokeless Tobacco: NeverAlcohol UseStandard Drinks/WeekCommentsNot Currently0 (1 standard drink = 0.6 oz pure alcohol)PHQ-2AnswerDate RecordedTotal Score21 4ChildcareAnswerDate UtbxoeyqMfppvoxveOkooscp28/21/2021EmploymentAnswer Date IxcfnkwpKmiravkhtuFssvssm44/21/2021Hunger ScreeningAnswerDate Recorded Within the past 12 months we worried whether our food would run out before we got money to buy more.Never True09/12/2025Within the past 12 months the food we bought just didn't last and we didn't have money to get more.Never True 09/12/2025Purpose - LifeAnswerDate RecordedPurpose and direction in lifeUnknown 11/08/2020ex and Gender InformationValueDate RecordedSex Assigned at BirthNot on fileLegal EcmXema6711/08/2020 10:25 AM ESTGender IdentityNot on fileSexual OrientationNot on filedocumented as of this encounter Miscellaneous Notes * Telephone Encounter - Julianna Barnes - 10/06/2025 9:38 AM EST Refill request : carbidopa-levodopa (SINEMET) 25-100 mg per tablet Last Filled : 11/23/2024 Last OV : 07/26/2025 Next OV : 11/30/2025 Reviewed by OPTOMETRY DOCTOR. Pend for signature. documented in this encounter Plan of Treatment DateTypeDepartmentCare Team (Latest Contact Info)Zhnjzgwnypj47/12/2026 11:00 AM ESTOffice Visit [facility] of [address] [place] [phone] Lyn Lawton MD [address] [place] [address] [address] [place] [address] 12/21/2025 3:00 PM ESTOffice Visit [facility] Department of [address] [place] [phone] Tony Martin MD [address] [place] [address] [address] [place] [address] documented as of this encounter Goals GoalPatient Goal TypeAssociated ProblemsRecent ProgressPatient-Stated?Author Discharge home Skylar Chen RN Note: Evaluation of progress towards [...] follow-up plan has been documented for the dchqvzy9310/07/2024 3:14 PM ESTdocumented as of this encounter Care Teams Team MemberRelationshipSpecialtyStart DateEnd Date Jaden Crabtree DO [address] [place] [address] PCP - GeneralFamily Medicine01/17/21documented as of this encounter
--- OUTSIDE RECORDS SUMMARY | 2025-10-13 09:42 | XMS_ITS | Clinical Summary ---
Author Organization [facility] Address [address] [place] [address] Phone Care Team Providers Care Border Police Name Role Phone Barbie Crabtreett Eunice DO Primary Care Provider [phone] Social History Tobacco UseTypesPacks/DayYears UsedDateSmoking Tobacco: Never AssessedSex and Gender InformationValueDate RecordedSex Assigned at BirthNot on fileLegal Sex Male09/12/2022 8:17 PM ESTGender IdentityNot on fileSexual OrientationNot on file Last Filed Vital Signs Vital SignReadingTime TakenCommentsBlood Rtthadwm29/6810 2:23 PM EDT Zibef566908/16/2021 2:21 PM EDTTemperature--Respiratory Rate--Oxygen Saturation-- Inhaled Oxygen Concentration--Ylhzja429 kg (224 lb)08/16/2021 2:21 PM EDTHeight 177.8 cm (5' 10 )08/16/2021 2:21 PM EDTBody Mass Index32.141 2:21 PM EDT Plan of Treatment Health MaintenanceDue DateLast DoneCommentsCT Zkkziamjjnry1958Colonoscopy 1958Colorectal Cancer Xovmkbrae1958FIT-DNA (Cologuard)1958FIT 1958Lipid Panel1958 5435Sbhphnyfpdzfc1958Yearly Adult Physical 1958MMR Vaccines (1 of 1 - Standard series)1959Diabetes Screening 1976Hepatitis C Budskootk26/25/1976Pneumococcal Vaccine (1 of 2 - PCV) 1977DTaP/Tdap/Td Vaccines (1 - Tdap)1980PSA Prostate Cancer Uawrqersx11/25/2008RSV High Risk: (Elderly (60+) or Population) (1 - Risk 50-74 years 1-dose series)2008Zoster Vaccines (1 of 2)2008 COVID-19 Vaccine (1 - 2024- season)2025Influenza Vaccine (#1)2025 HIB VaccinesAged OutNo longer eligible based on [...] DateEnd Date Jaden Crabtree DO PCP - Hpowfgi74/29/21
--- OUTSIDE RECORDS SUMMARY | 2025-10-13 09:42 | XMS_ITS | Clinical Summary ---
Author Organization [facility] Address [address] [place] [address] Care Team Providers Care Enrollment Nurse Name Role Phone Unavailable Primary Care Provider Unavailabl e Social History Tobacco UseTypesPacks/DayYears UsedDateSmoking Tobacco: Never AssessedSex and Gender InformationValueDate RecordedSex Assigned at BirthNot on fileLegal Sex Male12/31/2022 7:03 PM EDTGender IdentityNot on fileSexual OrientationNot on file Last Filed Vital Signs Vital SignReadingTime TakenCommentsBlood Glslpdfz750/6604 12:00 PM EDT Pulse--Temperature--Respiratory Rate--Oxygen Saturation--Inhaled Oxygen Concentration--Eqmvmf164 kg (246 lb)01/24/2019 12:00 PM OVRWnbkpb240.3 cm (5' 11 )01/24/2019 12:00 PM EDTBody Mass Index34.31001/24/2019 12:00 PM EDT Plan of Treatment Not on file
--- OUTSIDE RECORDS SUMMARY | 2025-10-13 09:42 | XMS_ITS | Clinical Summary ---
Author Organization [facility] Address [address] [place] [address] Care Team Providers Care Clerk Travel Reservations Name Role Phone MichiJaden guzmán Primary Care Provider [phone] Bhupendra Painter MD Unavailable Allergies Active AllergyReactionsCriticalityNoted DateCommentsCelecoxibGI intolerance, Hives,Rash,YyiojtnHjfx73/17/2017 Other reaction(s): GI Upset, Unknown ClonazepamItching,Shortness of breath,QttcbmeZzux97/17/2017ErythromycinItching, Nausea And Vomiting,Nausea Only,FckatktFwf07/01/2021 Other reaction(s): Unknown Erythromycin BaseHives,Shortness of pydbtjFfhr64/19/2004LevofloxacinHives, Shortness of breath,NkxjtjlSouk74/13/2010 Other reaction(s): Unknown MoxifloxacinHives,Itching,Rash,Shortness of breath,KtmdyMjgm45/02/2006 IlsigvazwlicObqbgWwmqdo88/05/2020 Medications MedicationSigDispense QuantityRefillsLast FilledStart DateEnd DateStatus carbidopa-levodopa [...] number is 150 or higher DO NOT TAKE.12/06/2022ctive venlafaxine XR (Effexor-XR) 150 mg 24 hr capsule Take 1 capsule by mouth in the morning.5Active topiramate (Topamax) 100 mg tablet Take 100 mg by mouth in the morning and at bedtime.Active DULoxetine (Cymbalta) [address] capsule Take 60 mg by mouth at bedtime.Active ezetimibe (Zetia) 10 mg tablet Take 10 [...] by mouth if needed each day (constipation).Active khcqbrl-nzegoemqbbrcb-xwtxxyvr (Excedrin Migraine) 250-250-65 mg tablet Take 2 [...] 30 capsule tive Active Problems ProblemNoted DateDiagnosed DateHistory of gastric tzrxag1309/19/2025Shock 06/15/20258636Ofzcwnbtkht82/28/2025Marginal ulcer06/15/2025ftercare following surgery of the musculoskeletal coqnoi2504/25/20251017Bvhzwj46/08/1574Tfltybe46/08/2025 BPH with urinary zzgdeycesuf33/08/2025hest pain04/25/2025Degeneration of intervertebral disc of cervical jlahij8904/25/2025Degeneration of intervertebral disc of lumbosacral squmya4104/25/20256920Fpfpcggaaj81/08/2025owel incontinence 04/25/2025Incontinence without sensory fdutgmpvb08/08/2025Iron deficiency anemia 04/25/2025Kidney ihjwpp2804/25/2025Other forms of scoliosis, site unspecified 04/25/2025Recurrent UTI04/25/2025Sciatica, left side04/25/2025History of lipmxkmbvxl98/08/2025Urinary vxlifxmaa40/08/2025UTI kfbixjdp01/08/2025Sinus pause04/25/2025Second degree heart block by electrocardiogram (ECG)04/14/2025 Overview (04/14/2025): On event monitor Pause of 3 .58 seconds 10:30am Open wound of left great toe03/16/2025 Overview (04/25/2025): PVR with toe pressures Critical limb ischemia of both lower extremities with wsowjwld67/11/2024 Overview (04/25/2025): Bilateral toe wounds nonhealing, no PVR or testing Encounter for abdominal aortic aneurysm (AAA) oilonhxig72/11/2024cute kidney yjwrac4708/20/2023Irritant contact dermatitis due to fecal zkcmjxruhnmp98/06/2023 Pressure injury of coccygeal region, stage ressure injury of left foot, ernpejycamz36/06/2023 Overview (04/25/2025): Lateral foot Wound eschar of foot11/24/2022 Overview (04/25/2025): Right and left toes At risk for qbqmwmur32/03/2023Severe protein-calorie snqireidzhiw30/03/2023 COVID-19 virus htnuwfrta64/02/6297Rrft52/02/2023Generalized dnwpaoyl20/02/2023 Testicular yswuozjxrysp98/21/2022Lumbar stenosis with neurogenic claudication 2Coronary aemfqtyrnslqysz71/14/2022History of fusion of cervical spine 10/10/2021hy-Drager /28/2021Walking difficulty due to ankle and foot 02/08/2021Falls bzystwkgnv21/11/2020Orthostatic yejqjnlddcs92/11/2020 Multifactorial gait jonebfmz57/11/2020Near ixjbfuv9908/29/2020Right foot drop 08/29/2020Acute cystitis without dpcphxdsy38/10/2020Tobacco use04/24/2020 Overview (04/25/2025): Last Assessment & Plan: Assessment: 60 pack years Currently 1/2 pack day since 01/2020 Cessation with strategies encouraged. Open wound of left heel11/08/2019Osteoarthritis of left hip11/08/2019Dysphagia 04/13/2019Psychosis due to Parkinson's spjyyrk2904/13/2019MGUS (monoclonal gammopathy of unknown significance)09/15/2018Spinal cord stimulator status 09/07/2018 Overview (04/25/2025): Last Assessment & Plan: Assessment: for LBP generator in right hip Aware to bring remote on DOS Complete tear of right rotator cuff08/02/2018Iron deficiency anemia secondary to inadequate dietary iron dyyjul0706/16/2018Nicotine use plnnejaw65/30/2018Obesity, Class I, BMI 30-34.9003/17/2018CRPS (complex regional pain syndrome type I) 03/16/2018Shoulder qwlevxhkq06/13/2018Essential bfugfqnftxze32/19/2018 Overview (03/20/2025): Last Assessment & Plan: Assessment: Medication for Control. Date: BP: 04/24/2020 115/80 Stable. Dumkrm7412/07/20174517Godzphwnxodhdd11/19/2018 Overview (04/25/2025): Last Assessment & Plan: Assessment: stable on medication Essential secema7110/27/2017Glenohumeral arthritis, left10/26/2017Arthritis of knee04/27/2017COPD with chronic pcrljknixg24/28/2017 Overview (03/20/2025): Last Assessment & Plan: Assessment: Managed with inhalers No supplemental oxygen use RA 04/24/20 1148 SpO2: 97% Stable. Type 2 diabetes ilfkbxig34/28/2017Chronic pain tokscemb16/28/2017 Overview (04/25/2025): Last Assessment & Plan: Assessment: lower back pain s/p SCS 02/2018 Monitored by Pain Management ( 04/03/2020) Postlaminectomy syndrome of lumbar shetqg1906/30/20166666Qgcjhbkppnd91/22/2010 Frequency of adzerowyi20/08/2010Slow urinary fxqnkk6203/26/2010Impotence of organic hwrxcg2110/08/2007Malignant neoplasm of skin of lip05/11/2007 Overview (04/25/2025): Last Assessment & Plan: Assessment: s/p removal Psychosexual dysfunction, hnmmdmdopmg52/13/2006Urinary wiyqaby0607/31/2006Brachial neuritis or vkxecbbnhkp14/30/2004Displacement of cervical intervertebral disc without luxrtcsvnr47/30/2004Displacement of thoracic intervertebral disc without otomuuhjlv07/19/2004 Encounters DateTypeDepartmentCare CyruDqjbidfomjy93/26/2025Telephone [facility] Surgery Clinic [address] [place] [phone] Corinna Price MA 10/06/2025Orders Only [facility] Pre-Anesthesia Clinic [address] [place] [address] [place] [address] Pati López RN 10/05/2025 7:30 AM ESTAncillary Procedure [facility] [address] [place] [address] Adjustment and management of cardiac /02/2025Orders Only [facility] Surgery Clinic [address] [place] [address] Santa Bean MA History of gastric bypass (Primary Dx)09/18/2025 1:45 PM ESTFollow-Up [facility] Surgery Clinic [address] [place] [address] Roberth Cowan MD Marginal ulcer (Primary Dx); History of gastric vssedz0308/22/2025 11:00 AM ESTAncillary Procedure [facility] [address] [place] [address] Encounter for checking and testing of cardiac pacemaker pulse generator (battery)07/25/2025 3:30 PM EDTAncillary Procedure [facility] [address] [place] [phone] Encounter for implantable defibrillator reprogramming or check07/18/2025Orders Only [facility] [address] [place] [address] Antonio Lim MD from Last 3 Months Family History Medical HistoryRelationNameCommentsCancerBrother 1Dale Raquel WilkinscerBrother 2 Sonny Raquel jrDiabetes type IIFatherDale WeyerHypertensionFatherDale WeyerHeart attackMaternal GrandfatherAsthmaMotherBettWeyerDepressionMotherBettWeyer HypertensionMotherBettWeyerHypotensionMotherBettWeyerKidney diseaseMother BettWeyerHeart attackMother's BrotherRelationNameStatusCommentsBrother 1Dale Weyer jrAliveBrother 2Dale Weyer jrAliveFatherDale WeyerAliveMaternal GrandfatherMotherBettWeyerAliveMother's Brother Social History Tobacco UseTypesPacks/DayYears UsedDateSmoking Tobacco: AalwfaFaoaqigdpe153.6 01/13/1978 - 08/19/2022mokeless Tobacco: Never Tobacco Cessation:Counseling Given: Not Answered Alcohol UseStandard Drinks/WeekCommentsNever0 (1 standard drink = 0.6 oz pure alcohol)[facility] UtilitiesAnswerDate RecordedIn the past 12 months has the [email or web address], gas, oil, or water [employer] threatened to shut off services in your home?No 06/15/2025Overall Financial Resource Strain (CARDIA)AnswerDate RecordedHow hard is it for you to pay for the very basics like food, housing, medical care, and heating?Not hard at all06/15/2025PHQ-2AnswerDate RecordedPatient Health Questionnaire-2 Qggwa47011/19/2024Humiliation, Afraid, Rape, and Kick questionnaireAnswerDate RecordedWithin the last year, have you been afraid of your partner or ex-partner?No09/18/2025Emotionally AbusedNot on file09/18/2025 Physically AbusedNot on file09/18/2025Sexually AbusedNot on file09/18/2025 TransportationAnswerDate RecordedIn the past 12 months, has lack of transportation kept you from medical appointments or from getting medications?No 06/15/2025Lack of Transportation (Non-Medical)Not on file06/15/2025Housing Stability Vital SignAnswerDate RecordedIn the last 12 months, was there a time when you were not able to pay the mortgage or rent on time?No06/15/2025Number of Times Moved in the Last YearNot on file06/15/2025t any time in the past 12 months, were you homeless or living in a [place] (including now)?No06/15/2025 Hunger Vital SignAnswerDate RecordedWithin the past 12 months, you worried that your food would run out before you got the money to buymore.Never true06/15/2025 Ran Out of Food in the Last YearNot on file06/15/2025Sex and Gender Information ValueDate RecordedSex Assigned at BirthNot on fileLegal TxnUlqr3704/16/2022 10:07 PM EDTGender IdentityChoose not to klfufxnz26/18/2025 11:10 AM EDTSexual OrientationChoose not to /18/2025 11:10 AM EDT Last Filed Vital Signs Vital SignReadingTime TakenCommentsBlood Lcnyksui130/6709/18/2025 1:58 PM EST Xkawr837909/18/2025 1:58 PM CNYWmlxhyplhdn66.6 ??C (97.8 ??F)09/18/2025 1:58 PM ESTRespiratory Ihbm493711/19/2024 1:58 PM ESTOxygen Rjcfpdyenl66%09/18/2025 1:58 PM ESTInhaled Oxygen Concentration--Googrp109 kg (235 lb)09/18/2025 1:58 PM EST Phhwlw382.8 cm (5' 10 )09/18/2025 1:58 PM ESTBody Mass Index33.7209/18/2025 1:58 PM EST Plan of Treatment DateTypeDepartmentCare Team (Latest Contact Info)Dqmxyzniekx68/02/2026 8:30 AM ESTHospital Encounter [facility] Main Operating Room [address] [place] [address] Roberth Cowan MD [address] [place] [address] 10/20/2025 8:30 AM EST - 10/20/2025 9:00 AM ESTSurgery [facility] Main Operating Room [address] [place] [address] Roberth Cowan MD [address] [place] [address] EGD (ESOPHAGOGASTRODUODENOSCOPY)NamePriorityAssociated DiagnosesDate/TimeEGD (ESOPHAGOGASTRODUODENOSCOPY) History of gastric bypass 10/20/2025 8:30 AM ESTHealth MaintenanceDue DateLast DoneCommentsCT Colonography 1958Diabetes: Hemoglobin A1C1958FIT-DNA1958FIT1958FOBT 1958Medicare Annual Wellness (AWV)1960 0069Stpqjrruinecg1958 Diabetes: Retinopathy Sceywmyrf98/25/1968Diabetes: Urine Protein Screening 1977Zoster Vaccines (2 of 2)COVID-19 Vaccine ( - season), 01/09/2021, 12/13/2020Influenza Vaccine (#1)502/12/2024, 11/10/2023, 09/18/2022, Additional history exists Cmfsbighapi03Colorectal Cancer Bajwkjqvx07/24/2026Depression Emnqlqmif07/10/2024Fall Risk Vrjugstcn96/10/2024Pneumococcal Vaccine: 50+ Years (3 of 3 - PCV20 or PCV21)/12/2022, 11/15/2018, 08/13/1995Adult Xuuygyg29, 10/22/2015HIB VaccinesAged OutNo longer eligible based on [...] Serial / Duke Pham S 60 - [id number] - [id number] Implanted:Qty: 1 on 06/05/2025 [facility]: [id number] / [id number] / Description:Duke Esquivel S 53 - [id number] - [id number] Implanted:Qty: 1 on 06/05/2025 by [facility] Lim [facility]: [id number] / [id number] / Pacemaker,Amvia Edge -T - [id number] - [id number] Implanted:Qty: 1 on 06/05/2025 by [facility]/A: [id number] / [id number] / Procedures Procedure NamePriorityDate/TimeAssociated DiagnosisCommentsCARDIAC DEVICE CHECK CHECK - ODLPVCMzemjdm14/23/2025 5:24 PM EST Adjustment and management of cardiac pacemaker CARDIAC DEVICE CHECK - REMOTE - GTRZQKSXFVpiootn05/17/2025 12:00 AM ESTCARDIAC DEVICE CHECK - IN CLINIC - PACEMAKER DUAL CHAMBER W/ XJMBKbyerml94/07/2025 10:58 AM EST Encounter for checking and testing of cardiac pacemaker pulse generator (battery) CARDIAC DEVICE CHECK - IN CLINIC - PACEMAKER DUAL CHAMBER W/ PROGRoutine 07/26/2025 4:13 PM EDT Encounter for implantable defibrillator reprogramming or check CARDIAC DEVICE CHECK CHECK - FLVWORXsdbjzu67/02/2025 2:47 PM EDT Adjustment and management of cardiac pacemaker CARDIAC DEVICE CHECK - REMOTE - OSWNSNIFEBbkongh46/30/2025 12:00 AM EDTfrom Last 3 Months Results * CARDIAC DEVICE CHECK - REMOTE - PACEMAKER (10/10/2025 5:24 PM EST) Only the most recent of2 resultswithin the time period is included. Specimen (Source)Anatomical Location / LateralityCollection Method / Volume Collection TimeReceived Time Narrative Authorizing ProviderResult TypeResult StatusC[facility] and [facility] IMPLANTABLE CARDIAC DEVICE PROCEDURESFinal ResultPerforming OrganizationAddressCity/State/ZIP Code Phone Number CPACS * Cardiac device check - Remote pacemaker (10/04/2025 12:00 AM EST) Only the most recent of2 resultswithin the time period is included. Anatomical RegionLateralityModalityOtherSpecimen (Source)Anatomical Location / LateralityCollection Method / VolumeCollection TimeReceived Time10/04/2025 Narrative Authorizing ProviderResult TypeResult StatusCha Eastman [facility] IMPLANTABLE CARDIAC DEVICE PROCEDURESFinal Result * CARDIAC DEVICE CHECK - IN CLINIC - PACEMAKER DUAL CHAMBER W/ PROG (08/25/2025 10:58 AM EST) Only the most recent of2 resultswithin the time period is included. Anatomical RegionLateralityModalityOtherSpecimen (Source)Anatomical Location / LateralityCollection Method / VolumeCollection TimeReceived Time Narrative 08/30/2025 3:35 PM EST Normal device function Authorizing ProviderResult TypeResult StatusC[facility] and [facility] Health Center IMPLANTABLE CARDIAC DEVICE PROCEDURESFinal Result from Last 3 Months Insurance Advance Directives * Full Code (Latest Code Status on File) Date ActivatedDate InactivatedComments06/15/2025 5:51 AM06/28/2025 2:24 PM * Full Code Date ActivatedDate InactivatedComments06/05/2025 3:54 PM06/05/2025 7:49 PM Care Teams Team MemberRelationshipSpecialtyStart DateEnd Date Jaden Crabtree DO [address] [place] [address] PCP - GeneralFamily Medicine04/25/25 Bhupendra Painter MD [address] [place] [phone] Consulting PhysicianUrology06/22/25
--- OUTSIDE RECORDS SUMMARY | 2025-10-13 09:42 | XMS_ITS ---
Author Organization [facility] Address [address] [place] [address] Care Team Providers Care Medication Assistant Name Role Phone Jaden Crabtree DO Primary Care Provider [phone] Bhupendra Painter MD Unavailable Active Problems ProblemNoted DateDiagnosed DateHistory of gastric mijtci9109/19/2025Shock 06/15/20254177Rgiuerzrgdz49/28/2025Marginal ulcer06/15/2025ftercare following surgery of the musculoskeletal nodceu7404/25/20259424Avorlc47/08/7968Ghqziif57/08/2025 BPH with urinary qpiaizqbyia42/08/2025hest pain04/25/2025Degeneration of intervertebral disc of cervical kmyjqg3904/25/2025Degeneration of intervertebral disc of lumbosacral ezknzm7004/25/20259731Nfnoakotvv56/08/2025owel incontinence 04/25/2025Incontinence without sensory ljfxbobbs82/08/2025Iron deficiency anemia 04/25/2025Kidney kfabuk5304/25/2025Other forms of scoliosis, site unspecified 04/25/2025Recurrent UTI04/25/2025Sciatica, left side04/25/2025History of zpbephrrmie63/08/2025Urinary cxdqzwxoh36/08/2025UTI sppkmefr29/08/2025Sinus pause04/25/2025Second degree heart block by electrocardiogram (ECG)04/14/2025 Overview (04/14/2025): On event monitor Pause of 3 .58 seconds 10:30am Open wound of left great toe03/16/2025 Overview (04/25/2025): PVR with toe pressures Critical limb ischemia of both lower extremities with tcjjumui02/11/2024 Overview (04/25/2025): Bilateral toe wounds nonhealing, no PVR or testing Encounter for abdominal aortic aneurysm (AAA) ekxhgenwh51/11/2024cute kidney nbousd4308/20/2023Irritant contact dermatitis due to fecal khvrnifmsqnn59/06/2023 Pressure injury of coccygeal region, stage ressure injury of left foot, vgxwifkyhju06/06/2023 Overview (04/25/2025): Lateral foot Wound eschar of foot11/24/2022 Overview (04/25/2025): Right and left toes At risk for viprzqqg74/03/2023Severe protein-calorie fpurmjurujeg69/03/2023 COVID-19 virus zvulbfgta68/02/3506Hkob81/02/2023Generalized vlwkbsoe84/02/2023 Testicular iwdrpqmwsolj66/21/2022Lumbar stenosis with neurogenic claudication 2Coronary ecgszazejzuxjxb45/14/2022History of fusion of cervical spine 10/10/2021hy-Drager /28/2021Walking difficulty due to ankle and foot 02/08/2021Falls ctmaehcpct35/11/2020Orthostatic wmijxxtzzdm74/11/2020 Multifactorial gait thmeyjnj24/11/2020Near tzaoeos0608/29/2020Right foot drop 08/29/2020Acute cystitis without /10/2020Tobacco use04/24/2020 Overview (04/25/2025): Last Assessment & Plan: Assessment: 60 pack years Currently 1/2 pack day since 01/2020 Cessation with strategies encouraged. Open wound of left heel11/08/2019Osteoarthritis of left hip11/08/2019Dysphagia 04/13/2019Psychosis due to Parkinson's nuvlvmx5104/13/2019MGUS (monoclonal gammopathy of unknown significance)09/15/2018Spinal cord stimulator status 09/07/2018 Overview (04/25/2025): Last Assessment & Plan: Assessment: for LBP generator in right hip Aware to bring remote on DOS Complete tear of right rotator cuff08/02/2018Iron deficiency anemia secondary to inadequate dietary iron uxirrg6506/16/2018Nicotine use tinjauye23/30/2018Obesity, Class I, BMI 30-34.9003/17/2018CRPS (complex regional pain syndrome type I) 03/16/2018Shoulder tnzwpieyi85/13/2018Essential hdostazmtqdp06/19/2018 Overview (03/20/2025): Last Assessment & Plan: Assessment: Medication for Control. Date: BP: 04/24/2020 115/80 Stable. Ygyjhv3312/07/20179922Qovjeeijslygep24/19/2018 Overview (04/25/2025): Last Assessment & Plan: Assessment: stable on medication Essential wmvtwa1610/27/2017Glenohumeral arthritis, left10/26/2017Arthritis of knee04/27/2017COPD with chronic qknjluutjl02/28/2017 Overview (03/20/2025): Last Assessment & Plan: Assessment: Managed with inhalers No supplemental oxygen use RA 04/24/20 1148 SpO2: 97% Stable. Type 2 diabetes qeniaxsx61/28/2017Chronic pain /28/2017 Overview (04/25/2025): Last Assessment & Plan: Assessment: lower back pain s/p SCS 02/2018 Monitored by Pain Management ( 04/03/2020) Postlaminectomy syndrome of lumbar rlyvso1006/30/20163045Riqtxcasbig43/22/2010 Frequency of /08/2010Slow urinary eiqtrb4403/26/2010Impotence of organic zofsxe1010/08/2007Malignant neoplasm of skin of lip05/11/2007 Overview (04/25/2025): Last Assessment & Plan: Assessment: s/p removal Psychosexual dysfunction, ebbhmyblvon42/13/2006Urinary bfehosx1707/31/2006Brachial neuritis or uhmwcakcqna16/30/2004Displacement of cervical intervertebral disc without grunpgbgnn39/30/2004Displacement of thoracic intervertebral disc without jvfrigjxwn69/19/2004 Current Treatment and Therapy Plans No current plan information found. Past Treatment and Therapy Plans No past plan information found. Lifetime Dose Tracking * ChemicalLifetime DoseAutomatic EntryManual EntryFluoro Time11.7 minutes0 tkeboav71.7 minutesAir Hbhzf109 mGy0 fAw814 mGyDose Area Uxfakhm57,190 mGy-cm2 0 mGy-cm212,190 mGy-cm2
--- OUTSIDE RECORDS SUMMARY | 2025-10-13 09:42 | XMS_ITS | Encounter Summary ---
Author Organization [facility] Address [address] [place] [address] Care Team Providers Care Rn Icu Name Role Phone MichiJaden guzmán Primary Care Provider [phone] Bhupendra Painter MD Unavailable Encounter Details DateTypeDepartmentCare Team (Latest Contact Info)Jcxokdfoplt07/19/2025Orders Only [facility] Pre-Anesthesia Clinic [address] [place] [address] [place] [phone] Pati López, ALFONSO Social History Tobacco UseTypesPacks/DayYears UsedDateSmoking Tobacco: YlzmzyTokmjpbnac497.6 01/13/1978 - 08/19/2022mokeless Tobacco: NeverAlcohol UseStandard Drinks/Week CommentsNever0 (1 standard drink = 0.6 oz pure alcohol)[facility] UtilitiesAnswerDate RecordedIn the past 12 months has the [employer], gas, oil, or water [employer] threatened to shut off services in your [...] were you homeless or living in a senior care (including now)?No06/15/2025Hunger Vital SignAnswerDate RecordedWithin the past 12 months, you worried that your food would run out before you got the money to buymore.Never true06/15/2025Ran Out of Food in the Last YearNot on file06/15/2025Sex and Gender InformationValueDate RecordedSex Assigned at BirthNot on fileLegal DtsXyny3804/16/2022 10:07 PM EDTGender Identity Choose not to /18/2025 11:10 AM EDTSexual OrientationChoose not to /18/2025 11:10 AM EDTdocumented as of this encounter Plan of Treatment DateTypeDepartmentCare Team (Latest Contact Info)Jnhokiemleg98/02/2026 8:30 AM ESTHospital Encounter [facility] Main Operating Room [address] [place] [phone] Roberth Cowan MD [address] [place] [address] 10/20/2025 8:30 AM EST - 10/20/2025 9:00 AM ESTSurgery [facility] Main Operating Room [address] [place] [phone] Roberth Cowan MD [address] [place] [address] EGD (ESOPHAGOGASTRODUODENOSCOPY)NamePriorityAssociated DiagnosesDate/TimeEGD (ESOPHAGOGASTRODUODENOSCOPY) History of gastric bypass 10/20/2025 8:30 AM ESTdocumented as of this encounter Procedures Procedure NamePriorityDate/TimeAssociated DiagnosisCommentsCARDIAC DEVICE CHECK - REMOTE - MTUOBMOQXPajlnhm29/17/2025 12:00 AM ESTdocumented in this encounter Results * Cardiac device check - Remote pacemaker (10/04/2025 12:00 AM EST)Anatomical RegionLateralityModalityOtherSpecimen (Source)Anatomical Location / Laterality Collection Method / VolumeCollection TimeReceived Time10/04/2025 Narrative Authorizing ProviderResult TypeResult StatusSamarkus Eastman [facility] IMPLANTABLE CARDIAC DEVICE PROCEDURESFinal Result documented in this encounter Visit Diagnoses Not on filedocumented in this encounter Care Teams Team MemberRelationshipSpecialtyStart DateEnd Date Jaden Crabtree DO [address] [place] [phone] PCP - GeneralFamily Medicine04/25/25 Bhupendra Painter MD [address] [place] [phone] Consulting PhysicianUrology06/22/25documented as of this encounter
--- OUTSIDE RECORDS SUMMARY | 2025-10-13 09:42 | XMS_ITS | Encounter Summary ---
Author Organization [facility] tem Address [id number] [address] [place] [address] Care Team Providers Care Fabrication Machine Operator Name Role Phone Jaden Crabtree DO Primary Care Provider [phone] Reason for Visit * ReasonOnset DateCommentsMed Rdvtlp5710/03/2025 Encounter Details DateTypeDepartmentCare Team (Latest Contact Info)Sagpoqdtazq66/16/2025Refill [facility] [address] [place] [phone] Andrés Bowden MD [address] [place] [address], [facility] [address], [address] [place], [place] [phone] Spinal stenosis of lumbar region with neurogenic claudication Social History Tobacco UseTypesPacks/DayYears UsedDateSmoking Tobacco: FormerCigarettes Smokeless Tobacco: NeverAlcohol UseStandard Drinks/WeekCommentsNot Currently0 (1 standard drink = 0.6 oz pure alcohol)PHQ-2AnswerDate RecordedTotal Score21 4ChildcareAnswerDate XxegaxfmQzvxeejieOwzsrkb09/21/2021EmploymentAnswer Date NepayzwmUwkvcqsgpiAjigsdc03/21/2021Hunger ScreeningAnswerDate Recorded Within the past 12 months we worried whether our food would run out before we got money to buy more.Never True09/12/2025Within the past 12 months the food we bought just didn't last and we didn't have money to get more.Never True 09/12/2025Purpose - LifeAnswerDate RecordedPurpose and direction in lifeUnknown 11/08/2020ex and Gender InformationValueDate RecordedSex Assigned at BirthNot on fileLegal HedTyyb2611/08/2020 10:25 AM ESTGender IdentityNot on fileSexual OrientationNot on filedocumented as of this encounter Plan of Treatment DateTypeDepartmentCare Team (Latest Contact Info)Jbywjkzewfw27/12/2026 11:00 AM ESTOffice Visit [facility], A Department of [address] [place] [phone] Lyn Lawton MD [address] [place] [address] [address], [address] [place] [address] 12/21/2025 3:00 PM ESTOffice Visit [facility], [facility] Department of [address], [address] [place] [phone] Tony Martin MD [address] [place] [address] [address], [address] [place] [address] documented as of this encounter Goals GoalPatient [...] follow-up plan has been documented for the tqdbbgs4210/07/2024 3:14 PM ESTdocumented as of this encounter Care Teams Team MemberRelationshipSpecialtyStart DateEnd Date Kuns, Jaden R, DO [address] [place] [address] PCP - GeneralFamily Medicine01/17/21documented as of this encounter
--- OUTSIDE RECORDS SUMMARY | 2025-10-13 09:42 | XMS_ITS | Encounter Summary ---
Author Organization [facility] tem Address [id number] [address] [place] [address] Care Team Providers Care Supervising Librarian Name Role Phone Jaden Crabtree DO Primary Care Provider [phone] Reason for Visit * ReasonOnset DateCommentsMed Kzdysg5710/03/2025 Encounter Details DateTypeDepartmentCare Team (Latest Contact Info)Bggtsxdqfvv30/16/2025Telephone [facility] Neurology, A Department of [address] [place] [phone] Lyn Lawton MD [address] [place] [address] [address], [address] [place] [address] Med Refill Social History Tobacco UseTypesPacks/DayYears UsedDateSmoking Tobacco: FormerCigarettes Smokeless Tobacco: NeverAlcohol UseStandard Drinks/WeekCommentsNot Currently0 (1 standard drink = 0.6 oz pure alcohol)PHQ-2AnswerDate RecordedTotal Score21 4ChildcareAnswerDate OcdarnfxMyxnsmizfMcclbpi70/21/2021EmploymentAnswer Date RuhydbqpPmfazlperlUkqbfpi26/21/2021Hunger ScreeningAnswerDate Recorded Within the past 12 months we worried whether our food would run out before we got money to buy more.Never True09/12/2025Within the past 12 months the food we bought just didn't last and we didn't have money to get more.Never True 09/12/2025Purpose - LifeAnswerDate RecordedPurpose and direction in lifeUnknown 11/08/2020ex and Gender InformationValueDate RecordedSex Assigned at BirthNot on fileLegal VbqHazi4811/08/2020 10:25 AM ESTGender IdentityNot on fileSexual OrientationNot on filedocumented as of this encounter Miscellaneous Notes * Telephone Encounter - Elli Alcocer - 10/03/2025 9:53 AM EST Medication Refill request: Medication Name and Strength: traMADoL (ULTRAM) 50 mg tablet carbidopa-levodopa (SINEMET CR) 25-100 mg per CR tablet Current dose & Frequency: Take 1 tablet (50 mg total) by mouth every 6 (six) hours as needed for pain. : TAKE 1 TABLET BY MOUTH AT 2AM, 2 TABLETS AT 6AM AND 10AM, 1 TABLET AT 2PM, 6PM, AND 10PM. TAKE WITH SINEMET IR 30 day or 90 day supply preferred: 30 Pharmacy Name: [facility] [address] [place] [address] Request was made by: Patient spouse Please advise. Pharmacy is stating they have not received these medications as of yet. * Telephone Encounter - Diana Ferguson CMA - 10/03/2025 9:53 AM EST Rx:carbidopa-levodopa (SINEMET CR) 25-100 mg per SIG:TAKE 1 TABLET BY MOUTH AT 2AM, 2 TABLETS AT 6AM AND 10AM, 1 TABLET AT 2PM, 6PM, AND 10PM. TAKE WITH SINEMET IR Last Fill:09/22/25 Last APT:09/22/25 Next ApT:11/30/25 Rx:traMADoL (ULTRAM) 50 mg tablet SIG:Take 1 tablet (50 mg total) by mouth every 6 (six) hours as needed for pain. Last Fill:10/03/25 Last APT:10/03/25 Next ApT:11/30/25 * Telephone Encounter - Tomeka Cuenca - 10/03/2025 9:53 AM EST Pharmacy calling to clarify prescription Pharmacy name: [facility], [place] - [address] [facility] [address] [facility] [place] [address] [place] [address] Hours: Not open 24 hours Medication: carbidopa-levodopa (SINEMET) 25-100 mg per Information needed:Dispense Quantity: 90 tablet TAKE 2 TABLETS BY MOUTH AT 6AM AND 10AM, 1 TAB AT 2PM AND 6PM. AVOID PROTEIN 1 HOUR BEFORE OR AFTER EACH DOSE. TAKE ALONG WITH SINEMET CR. Pharmacy stated frequency is only a 15 day supply . Requesting 90 day supply for patient (Place note here to provider from pharmacy if need be) * Telephone Encounter - Diana Ferguson CMA - 10/03/2025 9:53 AM EST [place] called pharmacy .Pharmacy voice understanding. documented in this encounter Plan of Treatment DateTypeDepartmentCare Team (Latest Contact Info)Ignlfzlwwfj55/12/2026 11:00 AM ESTOffice Visit [facility], A Department of [address] [place] [phone] Lyn Lawton MD [address] [place] [address] [address], [address] [place] [address] 12/21/2025 3:00 PM ESTOffice Visit [facility], A Department of [address] [place] [phone] Tony Martin MD [address] [place] [address] [address], [address] [place] [address] documented as of this encounter Goals GoalPatient Goal TypeAssociated ProblemsRecent ProgressPatient-Stated?Author Discharge home Skylar Chen, RN Note: Evaluation of progress towards goal: Plan to return home with supportive , after short acute inpatient rehabilitation, for post acute care. To get my medications adjusted and get stronger Sally Ruelas, RN Note: Evaluation of progress towards goal: Participating in care and rehab documented as of this encounter Visit Diagnoses Diagnosis [facility]'s disease ([facility]) Paralysis agitans documented in this encounter Additional Health Concerns AssessmentNoted TimePHQ-9 Depression Total Score: 11:29 AM ESTA Body Mass Index follow-up plan has been documented for the ehketqh0710/07/2024 3:14 PM ESTdocumented as of this encounter Care Teams Team MemberRelationshipSpecialtyStart DateEnd Date Jaden Crabtree DO [address] [place] [address] PCP - GeneralFamily Medicine01/17/21documented as of this encounter
--- OUTSIDE RECORDS SUMMARY | 2025-10-13 09:42 | XMS_ITS | Clinical Summary ---
Author Organization [facility] tem Address [facility] [place] [id number] [address] [place] [address] Care Team Providers Care Clinical Transformation Specialist Name Role Phone Jaden Crabtree DO Primary Care Provider [phone] Allergies Active AllergyReactionsCriticalityNoted DateCommentsCelecoxibHives,RashHigh 06/04/2017 Other reaction(s): GI Upset, Unknown FjkakpwjleCcvimuiBqyjvg16/17/8144Oxtrfqnvnery36/01/2021 Other reaction(s): Unknown Erythromycin BaseHives,Shortness Of UqgmzpFjzr38/19/2004LevofloxacinHivesMedium 01/29/2010 Other reaction(s): Unknown MoxifloxacinHives,Itching,Rash,Shortness Of EckugsBgky54/02/2006Pimavanserin Hives08/23/2020 Medications MedicationSigDispense QuantityRefillsLast FilledStart DateEnd DateStatus multivitamin capsule Take 1 capsule by mouth in the morning.Active acetaminophen (TYLENOL) 325 mg tablet Take 2 tablets (650 mg total) by mouth every 6 (six) hours as needed for pain. Active betamethasone, augmented, (DIPROLENE) 0.05 % cream Apply 1 application topically daily. 30 g 02/19/2021ctive Additional Information Patient not taking.Reported on 09/12/2025 ondansetron (ZOFRAN) 4 mg tablet Take 2 tablets (8 mg total) by mouth every 6 (six) hours as needed for nausea or vomiting. 20 tablet 02/19/2021ctive acarbose (PRECOSE) 25 mg tablet Take 1 tablet (25 mg total) by mouth 3 (three) times a day. 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 Taking Thursday, Thursday, Thursday.06/23/2024ctive SUMAtriptan (IMITREX) 50 mg tablet Indications:Migraine without aura and without status migrainosus, not intractableTake 1 tablet (50 mg total) by mouth once as needed for migraine for up to 180 doses. May repeat in2 hours if unresolved. Do not exceed 200 mg in 24 hours. 15 tablet 1114Active midodrine (PROAMATINE) 5 mg tablet Indications:OrthostasisCheck blood [...] PO TID as directed 90 tablet 5Active venlafaxine 150 MG tablet extended release 24hr 24 hr tablet Take 1 tablet (150 mg total) by mouth daily with breakfast.Active QUEtiapine (SEROquel) 25 mg tablet Indications:Psychosis due to Parkinson's disease ([facility])Take half tab nightly for 1 week, then may increase to full tab 90 tablet 5Active albuterol (PROVENTIL HFA;VENTOLIN HFA) 90 mcg/actuation inhaler Every 4 hours5Active nystatin (MYCOSTATIN) ointment APPLY TOPICALLY TWICE A DAY TO BILATERAL BUTTOCKSActive pyridoxine, vitamin B6, (B-6) 100 mg tablet Take 1 tablet (100 mg total) by mouth in the morning.5Active ascorbic acid (VITAMIN C) 500 mg tablet Take 1 tablet (500 mg total) by mouth in the morning.Active galcanezumab-gnlm (EMGALITY PEN) 120 mg/mL pen injector Indications:Intractable chronic migraine without aura and without status migrainosusInject 120 mg under the skin every 28 days. 1 mL 5Active ubrogepant (UBRELVY) 50 mg tablet Take 1 tablet as needed for migraine. May repeat dose after 2 hrs. No more than 2 tablets in 24 hrs. 16 tablet 5Active traMADoL (ULTRAM) 50 mg tablet Indications:Spinal stenosis of lumbar region with neurogenic claudicationTake 1 tablet (50 mg total) by mouth every 6 (six) hours as needed for pain. 120 tablet 512/5Active carbidopa-levodopa (SINEMET CR) 25-100 mg per CR tablet Indications:Parkinson's disease ([facility])TAKE 1 TABLET BY MOUTH AT 2AM, 2 TABLETS AT 6AM AND 10AM, 1 TABLET AT 2PM, 6PM, AND 10PM. TAKE WITHSINEMET IR 240 tablet 11125Active carbidopa-levodopa (SINEMET) 25-100 mg per tablet Indications:Parkinson's disease (CMS-HCC)TAKE 2 TABLETS BY MOUTH AT 6AM AND 10AM, 1 TAB AT 2PM AND 6PM. AVOID PROTEIN 1 HOUR BEFORE OR AFTEREACH DOSE. TAKE ALONG WITH SINEMET CR. 90 tablet 1215Active carbidopa-levodopa (SINEMET CR) 25-100 mg per CR tablet Indications:Parkinson's disease ([facility])TAKE 1 TABLET BY MOUTH AT 2AM, 2 TABLETS AT 6AM AND 10AM, 1 TABLET AT 2PM, 6PM, AND 10PM. TAKE WITHSINEMET IR 240 tablet /20231020/12/2024Discontinued(Reorder) carbidopa-levodopa (SINEMET) 25-100 mg per tablet Indications:Parkinson's disease ([facility])TAKE 2 TABLETS BY MOUTH AT 6AM AND 10AM, 1 TAB AT 2PM AND 6PM. AVOID PROTEIN 1 HOUR BEFORE OR AFTEREACH DOSE. TAKE ALONG WITH SINEMET CR. 180 tablet 11011/23/20241020/Discontinued traMADoL (ULTRAM) 50 mg tablet Indications:Spinal stenosis of lumbar region with neurogenic claudicationTake 1 tablet (50 mg total) by mouth every 6 (six) hours as needed for pain. 120 tablet 506//20241020/Discontinued(Reorder) omeprazole (PriLOSEC) 40 mg capsule Take 1 capsule (40 mg total) by mouth before breakfast. TAKE 1 CAPSULE (40 MG) BY MOUTH BEFORE BREAKFAST DO NOT CRUSH OR CHEW/Expired carbidopa-levodopa (SINEMET CR) 25-100 mg per CR tablet Indications:Parkinson's disease ([facility])TAKE 1 TABLET BY MOUTH AT 2AM, 2 TABLETS AT 6AM AND 10AM, 1 TABLET AT 2PM, 6PM, AND 10PM. TAKE WITHSINEMET IR 240 tablet 1115112/04/2024Discontinued(Reorder) Active Problems ProblemNoted DateDiagnosed DateOpen wound of left great toe03/16/2025 Overview (03/16/2025): PVR with toe pressures Assessment & Plan (03/16/2025 11:16 AM EDT): PVR with toe pressure Encounter for abdominal aortic aneurysm (AAA) hubgxsmub13/11/2024 Assessment & Plan (03/16/2025 11:16 AM EDT): No abdominal aortic aneurysms on screening duplex ultrasound. Assessment & Plan (01/28/2024 9:40 AM EDT): AAA duplex US Critical limb ischemia of both lower extremities with cjuwccmd89/11/2024 Overview (01/28/2024): Bilateral toe wounds nonhealing, no [...] wounds nonhealing, no PVR or testing Generalized nkkgcdlu13/02/2023Shy-Drager ojoicxef25/28/2021Walking difficulty due to ankle and foot02/08/2021Type 2 diabetes mellitus with circulatory disorder, without long-term current use of evuptvp9202/08/2021arkinson disease 1Parkinson's zrhoija6602/03/2021Falls aivfxxlfji54/11/2020Near syncope 08/29/20200198Qweelfbwsfd41/11/2020Right foot drop08/29/2020Multifactorial gait tsfsoffd04/11/2020Osteoarthritis of right hip05/03/2020Tobacco use04/24/2020 Overview (10/01/2021): Last Assessment & Plan: Assessment: 60 pack years Currently 1/2 pack day since 01/2020 Cessation with strategies encouraged. Megaloblastic anemia due to vitamin B12 gvsfhxreoa74/13/2020Open wound of left heel11/08/20192765Jnffyglog39/26/2019MGUS (monoclonal gammopathy of unknown significance)09/15/2018Spinal cord stimulator zyiiti5509/07/2018 Overview (10/01/2021): Last Assessment & Plan: Assessment: for LBP generator in right hip Aware to bring remote on DOS Complete tear of right rotator cuff08/02/2018Iron deficiency anemia secondary to inadequate dietary iron jixobt2406/16/2018Multilevel spine pain06/02/2018Obesity, Class I, BMI 30-34.9003/17/2018CRPS (complex regional pain syndrome type I) 03/16/2018Status post replacement of left shoulder joint02/08/2018Asthma 12/07/2017Essential uiyeiutfdxml41/19/2018 Overview (10/01/2021): Last Assessment & Plan: Assessment: Medication for Control. Date: BP: 04/24/2020 115/80 Stable. Ytfctctwgpjnif50/19/2018 Overview (10/01/2021): Last Assessment & Plan: Assessment: stable on medication Diabetes qvlohyfg18/19/2018 Overview (10/01/2021): Last Assessment & Plan: Assessment: stable on oral medication Hemoglobin A1C (%) Date Value 05/18/2018 5.9 06/17/2017 5.3 Arthritis of knee04/27/2017Chronic pain brzcoyuk90/28/2017 Overview (10/01/2021): Last Assessment & Plan: Assessment: lower back pain s/p SCS 02/2018 Monitored by Pain Management ( 04/03/2020) COPD with chronic /28/2017 Overview (10/01/2021): Last Assessment & Plan: Assessment: Managed with inhalers No supplemental oxygen use RA 04/24/20 1148 SpO2: 97% Stable. Postlaminectomy syndrome of lumbar frkhpe8206/30/2016Hypertrophy of prostate with urinary obstruction and other lower urinary tract symptoms (LUTS)08/12/2010 Obovkdnvior05/22/2010Frequency of mvgknoqbt58/08/2010ED (erectile dysfunction) of organic pvbxmq7210/08/2007Malignant neoplasm of skin of lip05/11/2007 Overview (10/01/2021): Last Assessment & Plan: Assessment: s/p removal Urinary tyzuifv7307/31/2006Rotator cuff syndrome of shoulder and allied disorders 12/10/2004Spinal stenosis of lumbar vtdoxg6308/13/2004Brachial neuritis or sbllzptnaer38/30/2004Displacement of cervical intervertebral disc04/17/2004 Displacement of thoracic intervertebral disc without bvfhfyzchy47/19/2004Spinal stenosis of cervical sdmrdd4103/06/2004 Encounters DateTypeDepartmentCare AzxdHsexnsfexbb24/19/2025Refill [facility] [address] [place] [phone] Andrés Bowden MD Parkinson's disease ([facility])10/03/2025Telephone [facility], A Department of [address], [address] [place] [phone] Lyn Lawton MD Med Artyyh7710/03/2025Refill [facility] [address] [place] [phone] Andrés Bowden MD Spinal stenosis of lumbar region with neurogenic xlerabyvdxuz83/03/2025Refill [facility] [address] [place] [address] Andrés Bowden MD Parkinson's disease ([facility])09/13/2025Telephone [facility], A Department of [facility] [address] [facility] [address] [place] [address] Susanna Tao clarify dwcnaxapowlf71/25/2025 11:00 AM ESTOffice Visit [facility], A Department of [place] [address] [facility] [address] [place] [address] Tony Martin MD Intractable chronic migraine without aura and without status migrainosus (Primary Dx); Vestibular migraine; Episode of recurrent major depressive disorder, unspecified depression episode severity; Generalized anxiety froptgvz76/25/9234Vkwqmz93/08/2025 10:00 AM EDTOffice Visit [facility] Department of [facility] [address] [facility] [address] [place] [address] Lyn Lawton MD Parkinson's disease without dyskinesia or fluctuating manifestations ([facility]) (Primary Dx); Dysautonomia orthostatic hypotension syndrome; Psychosis due to Parkinson's disease ([facility]); QT istifdssckma96/08/2025Travelfrom Last 3 Months Immunizations ImmunizationAdministration DatesNext QzvC8J5 Inj Preservative Free08/24/2009 Hepatitis B1,01/27/2002Influenza High Dose Preservative Free IM 08/24/2019,08/12/2016Influenza, Injectable, Kpowvhurvypx99/29/2020,07/07/2018 Influenza, Injectable, quadrivalent (PF)07/01/2017,07/23/2015Influenza, Hrasdmcyqxq65/27/2010Pneumococcal Conjugate 13-Oiboui1411/15/2018Pneumococcal Rboevfcsbhrqul80/26/0250Ygxk95/28/2019,10/22/2015Zoster Vaccine Recombinant 01/19/2019 Social History Tobacco UseTypesPacks/DayYears UsedDateSmoking Tobacco: FormerCigarettes Smokeless Tobacco: Never Tobacco Cessation:Counseling Given: Not Answered Alcohol UseStandard Drinks/WeekCommentsNot Currently0 (1 standard drink = 0.6 oz pure alcohol)PHQ-2AnswerDate RecordedTotal Ozpxy910008/23/2024hildcareAnswerDate SbhuicheCztqiujkyCqnzgzf82/21/2021mploymentAnswerDate RecordedEmploymentUnknown 11/08/2020Hunger ScreeningAnswerDate RecordedWithin the past 12 months we worried whether our food would run out before we got money to buy more.Never True09/12/2025Within the past 12 months the food we bought just didn't last and we didn't have money to get more.Never True09/12/2025Purpose - LifeAnswerDate RecordedPurpose and direction in aqgiSpkertd18/21/2021ex and Gender Information ValueDate RecordedSex Assigned at BirthNot on fileLegal FsfYomm1711/08/2020 10:25 AM ESTGender IdentityNot on fileSexual OrientationNot on file Last Filed Vital Signs Vital SignReadingTime TakenCommentsBlood Sqcsyoed640/6209/12/2025 11:11 AM EST Enadi162709/12/2025 11:11 AM KWZGalorfofico98.4 ??C (97.6 ??F)03/16/2025 9:27 AM EDTRespiratory Tdsw1877 9:41 AM EDTOxygen Jgnozbjahr08%03/16/2025 9:27 AM EDTInhaled Oxygen Concentration--Vngceb793.6 kg (235 lb)09/12/2025 11:11 AM PGDOrdire924.8 cm (5' 10 )09/12/2025 11:11 AM ESTBody Mass Index33.7209/12/2025 11:11 AM EST Plan of Treatment DateTypeDepartmentCare Team (Latest Contact Info)Xevevrlprok25/12/2026 11:00 AM ESTOffice Visit [facility] Department of [facility] [address] [place] [address] Lyn Lawton MD [address] [facility] [place] [address] [place] [address] 12/21/2025 3:00 PM ESTOffice Visit [facility], A Department of [facility] [address] [facility] [address] [place] [phone] Tony Martin MD [address] [facility] [place] [address] [place] [address] Health MaintenanceDue DateLast DoneCommentsDiabetic Ophthalmology Exam1958 Statin Use: Vekpnqwdaexkug1958Statin Use: Jzzbikdi1958Diabetic Foot Exam1976RSV ( or age 60+ yrs) (1 - Risk 50-74 years 1-dose series) 2008Zoster (Shingles) Vaccine (2 of 2)Fall Risk Zpfzsolti82/25/2023OVID-19 Vaccine ( - 2024- season), 01/09/2021, 12/13/2020Influenza Lyfrfko32/12/2024, 11/10/2023, 09/18/2022, Additional history existsAdult BMI Follow Up Plan08/23/2025 08/23/2024epression Xcghztcai61/dult BMI Lzcvtbiyw53/25/2026 09/12/2025Tobacco Uuufaxzeb66DTaP,Tdap and Td Vaccines (3 - Td or Tdap)/, 10/22/2015Abdominal Aortic Aneurysm (AAA) Screen Erwwbeiiu69/11/2024, 12/01/2022, 11/26/2022 Goals GoalPatient Goal TypeAssociated ProblemsRecent [...] Team MemberRelationshipSpecialtyStart DateEnd Date Jaden Crabtree DO [address] [place] [address] PCP - GeneralFamily Medicine01/17/21
[2025-10-13 09:54] LABS: Glucose Urine UA NEGATIVE (NEGATIVE)
[2025-10-13 11:58] LABS: Crystals Seen? None Seen #/HPF (None Seen)
[2025-10-13 11:59] LABS: Cast Seen? NONE SEEN #/LPF (NONE SEEN); Urine Culture Indicated YES-FRMC
== END 2025-10-13 09:38 | disposition home or self-care (01) ==
LOC: LAB 09:37
PROVIDERS: PCP Family Medicine; Visit Provider Family Medicine
DX: L89.313 Pressure ulcer of right buttock, stage 3 (principal)
CPT/HCPCS: 81001; 87086; 87088; 87186